=== PATIENT | male | born 1990 | race Caucasian/White ===

== ENCOUNTER 2018-04-09 15:30 | Outpatient (REF) | payer MEDICAID, SELFPAY ==
[2018-04-09 16:52] LABS: HCT 36.5 % (40.0-50.0); HGB 11.5 g/dL (13.5-17.5); Mean Corp. HGB Concentration 31.5 g/dL (32.0-36.0); Mean Corpuscular Hemoglobin 23.1 pg (27.0-33.0); Mean Corpuscular Volume 73.3 fL (80-95); Mean Platelet Volume 11.2 fL (8.0-11.0); Platelet Count 286 x1000/uL (130-400); RBC 4.98 m/cumm (4.50-6.00); RBC Distribution Width 16.4 % (11.8-14.1)
[2018-04-09 16:58] LABS: ALT 201 U/L (12-78); AST 79 U/L (15-37); Albumin 3.9 g/dL (3.4-5.0); Alkaline Phosphatase 167 U/L (46-116); Anion Gap 14.7 mmol/L (3-11); BUN 17 mg/dL (7-18); Bilirubin, Total 0.3 mg/dL (0.2-1.0); CO2 22.3 mmol/L (21.0-32.0); CREATININE 0.79 mg/dL (0.70-1.30); Chloride 107 mmol/L (98-107); Glucose 117 mg/dL (70-100); Potassium 4.1 mmol/L (3.5-5.1); Sodium 144 mmol/L (136-145); TSH (W/Ref FT4) 0.01 uIU/mL (0.358-3.74); Total Protein 7.2 g/dL (6.4-8.2)
[2018-04-09 17:29] LABS: FREE T4 1.14 ng/dL (0.76-1.46)
== END 2018-04-09 15:50 ==
LOC: NCHCN 15:30
PROVIDERS: PCP Family Medicine; Visit Provider Family Medicine
DX: D50.8 Other iron deficiency anemias (principal); E23.2 Diabetes insipidus
CPT/HCPCS: 80053; 85027; 84439; 84443

== ENCOUNTER 2018-04-21 12:30 | Outpatient (REF) | payer MEDICAID, SELFPAY ==
[2018-04-21 15:15] LABS: Sodium 151 mmol/L (136-145)
== END 2018-04-21 12:50 ==
LOC: NCHCN 12:30
PROVIDERS: PCP Family Medicine; Visit Provider Family Medicine
DX: E23.0 Hypopituitarism (principal)
CPT/HCPCS: 84295

== ENCOUNTER 2018-05-05 13:21 | Outpatient (REF) | payer MEDICAID, SELFPAY ==
[2018-05-05 14:30] LABS: Abs Immature Grans 0.01 k/cumm (0.0-0.09); Absolute Basophil Count 0.01 k/cumm (0.0-0.2); Absolute Eosinophil Count 0.15 k/cumm (0.0-0.7); Absolute Lymphocyte Count 1.43 k/cumm (1.2-3.4); Absolute Monocyte Count 0.52 k/cumm (0.11-0.7); Absolute Neutrophil Count 3.89 k/cumm (1.2-6.7); Basophils % 0.2; Eosinophils % 2.5; HCT 40.4 % (40.0-50.0); HGB 12.5 g/dL (13.5-17.5); Immature Grans % 0.2; Lymphocytes % 23.8; Mean Corp. HGB Concentration 30.9 g/dL (32.0-36.0); Mean Corpuscular Hemoglobin 22.9 pg (27.0-33.0); Mean Corpuscular Volume 74.1 fL (80-95); Monocytes % 8.7; Neutrophils % 64.6; RBC 5.45 m/cumm (4.50-6.00); RBC Distribution Width 18.7 % (11.8-14.1); White Blood Cell Count 6.01 k/cumm (4.4-10.8)
[2018-05-05 14:37] LABS: Sodium 148 mmol/L (136-145)
[2018-05-05 14:52] LABS: Anisocytosis 1+; Diff Comment RBC Morph Reviewed
[2018-05-05 14:53] LABS: Microcytosis 2+; Platelet Count 255 x1000/uL (130-400); Polychromasia Present
== END 2018-05-05 13:41 ==
LOC: LBN 13:21
PROVIDERS: PCP Family Medicine; Visit Provider Family Medicine
DX: E23.0 Hypopituitarism (principal)
CPT/HCPCS: 84295; 85025

== ENCOUNTER 2018-05-07 13:21 | Outpatient (CLI) | payer MEDICAID, SELFPAY ==
--- NOTE | 2018-05-07 13:39 | DI.RAD_ITS ---
SYMPTOMS/DIAGNOSIS: LT KNEE PAIN, M2.562 LEFT KNEE: There is no evidence of a fracture or dislocation. No bony or joint abnormality is seen.
== END 2018-05-07 13:41 ==
PROVIDERS: PCP Family Medicine; Visit Provider Specialist/Technologist Athletic Trainer
DX: M25.562 Pain in left knee (principal)
CPT/HCPCS: 73562

== ENCOUNTER 2018-05-08 15:50 | Emergency (ER) | payer MEDICAID, SELFPAY ==
[2018-05-08 15:58] VITALS: BP 123/89; PULSE 108; RESP 16; TEMP 36; O2SAT 97
--- NOTE | 2018-05-08 17:21 | DI.RAD_ITS ---
SYMPTOM/DIAGNOSIS: COUGH AP AND LATERAL CHEST: No priors. The heart is normal in size. The lungs are clear. The mediastinal structures and pleura appear intact. CONCLUSION: Normal chest.
--- NOTE | 2018-05-08 17:21 | W.ED.GENAD ---
Discharge Plan Disposition Patient Disposition: HOME Discharge Details Chief Complaint: SOB Clinical Impression: Cough Primary Care Provider: Lc Venegas ED Provider: Tony Macias Home Meds and New Rx's Prescriptions: Continue trazodone 50 MG tablet 2 tab PO QPM RF: 0 quetiapine 200 MG tablet 1 mg PO QPM RF: 0 omeprazole 40 MG capsule,delayed release(DR/EC) 1 cap PO DAILY RF: 0 zonisamide 100 MG capsule 1 cap PO QPM RF: 0 levothyroxine [Synthroid] 150 MCG tablet 1 tab PO DAILY RF: 0 melatonin-pyridoxine (vit B6) 1 EACH tablet 3 mg PO QPM RF: 0 hydrocortisone [Cortef] 10 MG tablet 20 mg PO TID RF: 0 desmopressin 0.1 MG tablet 0.5 tab PO TID RF: 0 testosterone [AndroGel] 75 GM gel in metered-dose pump 3 applic Topical DAILY RF: 0 atorvastatin 40 mg Tablet 40 mg PO DAILY RF: 0 aspirin [Aspir-81] 81 mg Tablet,Delayed Release (Dr/Ec) 1 tab PO DAILY RF: 0 metoprolol tartrate 75 mg Tablet 1 tab PO DAILY RF: 0 Discharge Instructions Instructions: Acute Cough (ED) Additional Instructions: Please contact your primary care physician to arrange follow-up. Return to the ER for any worsening or new concerning symptoms. Discharge Data Discharge Date/Time-TO BE ENTERED AT DEPARTURE: 05/08/18 18:48 Medical Decision Making 27-year-old male with history of TBI, seizure disorder, s/p craniotimy with cough. Well appearing. Saturating well and in no respiratory distress. cxr interpreted by radiology no acute findings. Suspect viral URI. Supportive care advised. Recommended outpatient follow-up. Patient caregivers were encouraged to return for worsening or new concerning symptoms. HPI General Mode of arrival: wheelchair. Date/Time Provider Initiated Documentation: 05/08/18 16:25. Limitations to Documentation: altered mental status. HPI Narrative: 27-year-old male with history of TBI, CVA, seizure disorder, status post craniotomy for tumor resection, here with caregivers who are concerned that he has had a cough recently. Caregivers noted cough for the past couple days.?Also concerned he may have had some wheeze earlier today. No associated fever. History and review of systems limited secondary to altered mental status. Related Data Home Medications Medication Instructions Recorded Confirmed desmopressin 0.5 tab PO TID 12/29/15 05/08/18 hydrocortisone [Cortef] 20 mg PO TID 12/29/15 05/08/18 levothyroxine [Synthroid] 1 tab PO DAILY 12/29/15 05/08/18 melatonin-pyridoxine (vit B6) 3 mg PO QPM 12/29/15 05/08/18 omeprazole 1 cap PO DAILY 12/29/15 05/08/18 quetiapine 1 mg PO QPM 12/29/15 05/08/18 testosterone [AndroGel] 3 applic TOPICAL DAILY 12/29/15 05/08/18 trazodone 2 tab PO QPM 12/29/15 05/08/18 zonisamide 1 cap PO QPM 12/29/15 05/08/18 aspirin [Aspir-81] 1 tab PO DAILY 05/08/18 05/08/18 atorvastatin 40 mg PO DAILY 05/08/18 05/08/18 metoprolol tartrate 1 tab PO DAILY 05/08/18 05/08/18 Allergies Allergy/AdvReac Type Severity Reaction Status Date / Time gemfibrozil [From Lopid] AdvReac Unknown Unverified 05/08/18 16:04 General Stated Complaint: SOB KWASI: 3 Review of Systems Review of Systems Unobtainable due to mental status [facility] Social History Smoking/Tobacco Use Status: Never Exam Const General: no acute distress [facility] Head: atraumatic Mouth: moist mucous membranes Eyes Conjunctivae: normal conjunctivae Sclera: normal sclerae Neck Neck: trachea midline and supple Resp Auscultation: clear to auscultation bilaterally, no rales, no rhonchi and no wheezes Cardio Jugular venous pressure: no JVD Rate: tachycardic Rhythm: regular rhythm GI Palpation: soft, not firm, no guarding, no masses, not rigid and nontender Skin General skin exam: no rashes or lesions noted Neuro General: alert, awake and tone normal Extrem General: no edema Course Vital Signs Temperature 36 C L 05/08/18 15:58 Pulse 108 H 05/08/18 15:58 Respiratory Rate 16 05/08/18 15:58 Blood Pressure 123/89 05/08/18 15:58 Pulse Oximetry 97 05/08/18 15:58 Temperature 36 C L 05/08/18 15:58 Temperature Source Skin 05/08/18 15:58 Pulse 108 H 05/08/18 15:58 Respiratory Rate 16 05/08/18 15:58 Respiratory Effort 05/08/18 16:27 Respiratory Depth Normal 05/08/18 16:27 Blood Pressure 123/89 05/08/18 15:58 Pulse Oximetry 97 05/08/18 15:58 Pain Level 0 05/08/18 15:58 Comment 05/08/18 15:58
--- NOTE | 2018-05-08 18:37 | DI.VRAD_ITS ---
EXAM: XR Chest, 2 Views EXAM DATE/TIME: 05/08/2018 5:22 PM CLINICAL HISTORY: 27 years old, male; Signs and symptoms; Cough TECHNIQUE: XR of the chest, 2 views. COMPARISON: No relevant prior studies available. FINDINGS: Lungs: Unremarkable. No consolidation. Pleural space: Unremarkable. No pleural effusion. No pneumothorax. Heart/Mediastinum: Unremarkable. No cardiomegaly. Bones/joints: Unremarkable. IMPRESSION: No acute findings. Dictated and Authenticated by: Marino Lepe MD. Ordering:CHANO GRAF MD
[2018-05-08 18:43] VITALS: BP 120/75; PULSE 104; RESP 18; TEMP 36.6; O2SAT 97
--- NOTE | 2018-05-08 18:48 | ED.GENADUL_ITS ---
Discharge Plan Disposition Patient Disposition: HOME Discharge Details Chief Complaint: SOB Clinical Impression: Cough Primary Care Provider: Lc Venegas ED Provider: Tony Macias Home Meds and New Rx's Prescriptions: Continue trazodone 50 MG tablet 2 tab PO QPM RF: 0 quetiapine 200 MG tablet 1 mg PO QPM RF: 0 omeprazole 40 MG capsule,delayed release(DR/EC) 1 cap PO DAILY RF: 0 zonisamide 100 MG capsule 1 cap PO QPM RF: 0 levothyroxine [Synthroid] 150 MCG tablet 1 tab PO DAILY RF: 0 melatonin-pyridoxine (vit B6) 1 EACH tablet 3 mg PO QPM RF: 0 hydrocortisone [Cortef] 10 MG tablet 20 mg PO TID RF: 0 desmopressin 0.1 MG tablet 0.5 tab PO TID RF: 0 testosterone [AndroGel] 75 GM gel in metered-dose pump 3 applic Topical DAILY RF: 0 atorvastatin 40 mg Tablet 40 mg PO DAILY RF: 0 aspirin [Aspir-81] 81 mg Tablet,Delayed Release (Dr/Ec) 1 tab PO DAILY RF: 0 metoprolol tartrate 75 mg Tablet 1 tab PO DAILY RF: 0 Discharge Instructions Instructions: Acute Cough (ED) Additional Instructions: Please contact your primary care physician to arrange follow-up. Return to the ER for any worsening or new concerning symptoms. Discharge Data Discharge Date/Time-TO BE ENTERED AT DEPARTURE: 05/08/18 18:48 Medical Decision Making 27-year-old male with history of TBI, seizure disorder, s/p craniotimy with cough. Well appearing. Saturating well and in no respiratory distress. cxr interpreted by radiology no acute findings. Suspect viral URI. Supportive care advised. Recommended outpatient follow-up. Patient caregivers were encouraged to return for worsening or new concerning symptoms. HPI General Mode of arrival: wheelchair . Date/Time Provider Initiated Documentation: 05/08/18 16:25 . Limitations to Documentation: altered mental status . HPI Narrative: 27-year-old male with history of TBI, CVA, seizure disorder, status post craniotomy for tumor resection, here with caregivers who are concerned that he has had a cough recently. Caregivers noted cough for the past couple days.?Also concerned he may have had some wheeze earlier today. No associated fever. History and review of systems limited secondary to altered mental status. Related Data Home Medications Medication Instructions Recorded Confirmed desmopressin 0.5 tab PO TID 12/29/15 05/08/18 hydrocortisone [Cortef] 20 mg PO TID 12/29/15 05/08/18 levothyroxine [Synthroid] 1 tab PO DAILY 12/29/15 05/08/18 melatonin-pyridoxine (vit B6) 3 mg PO QPM 12/29/15 05/08/18 omeprazole 1 cap PO DAILY 12/29/15 05/08/18 quetiapine 1 mg PO QPM 12/29/15 05/08/18 testosterone [AndroGel] 3 applic TOPICAL DAILY 12/29/15 05/08/18 trazodone 2 tab PO QPM 12/29/15 05/08/18 zonisamide 1 cap PO QPM 12/29/15 05/08/18 aspirin [Aspir-81] 1 tab PO DAILY 05/08/18 05/08/18 atorvastatin 40 mg PO DAILY 05/08/18 05/08/18 metoprolol tartrate 1 tab PO DAILY 05/08/18 05/08/18 Allergies Allergy/AdvReac Type Severity Reaction Status Date / Time gemfibrozil [From Lopid] AdvReac Unknown Unverified 05/08/18 16:04 General Stated Complaint: SOB KWASI: 3 Review of Systems Review of Systems Unobtainable due to mental status [facility] Social History Smoking/Tobacco Use Status: Never Exam Const General: no acute distress [facility] Head: atraumatic Mouth: moist mucous membranes Eyes Conjunctivae: normal conjunctivae Sclera: normal sclerae Neck Neck: trachea midline and supple Resp Auscultation: clear to auscultation bilaterally, no rales, no rhonchi and no wheezes Cardio Jugular venous pressure: no JVD Rate: tachycardic Rhythm: regular rhythm GI Palpation: soft, not firm, no guarding, no masses, not rigid and nontender Skin General skin exam: no rashes or lesions noted Neuro General: alert, awake and tone normal Extrem General: no edema Course Vital Signs Temperature 36 C L 05/08/18 15:58 Pulse 108 H 05/08/18 15:58 Respiratory Rate 16 05/08/18 15:58 Blood Pressure 123/89 05/08/18 15:58 Pulse Oximetry 97 05/08/18 15:58 Temperature 36 C L 05/08/18 15:58 Temperature Source Skin 05/08/18 15:58 Pulse 108 H 05/08/18 15:58 Respiratory Rate 16 05/08/18 15:58 Respiratory Effort 05/08/18 16:27 Respiratory Depth Normal 05/08/18 16:27 Blood Pressure 123/89 05/08/18 15:58 Pulse Oximetry 97 05/08/18 15:58 Pain Level 0 05/08/18 15:58 Comment 05/08/18 15:58
== END 2018-05-08 18:48 | disposition home or self-care (01) ==
PROVIDERS: Emergency Provider Student in an Organized Health Care Education/Training Program; PCP Specialist/Technologist Athletic Trainer
DX: R05 Cough (principal)
CPT/HCPCS: 99283; 71046; 99282

== ENCOUNTER 2018-05-20 10:09 | Outpatient (REF) | payer MEDICAID, SELFPAY ==
[2018-05-20 10:41] LABS: Sodium 146 mmol/L (136-145)
== END 2018-05-20 10:29 ==
LOC: NCHCN 10:09
PROVIDERS: PCP Specialist/Technologist Athletic Trainer; Visit Provider Family Medicine
DX: E23.0 Hypopituitarism (principal)
CPT/HCPCS: 84295

== ENCOUNTER 2018-06-02 16:10 | Outpatient (REF) | payer MEDICAID, SELFPAY ==
[2018-06-02 17:17] LABS: Abs Immature Grans 0.02 k/cumm (0.0-0.09); Absolute Basophil Count 0.02 k/cumm (0.0-0.2); Absolute Eosinophil Count 0.18 k/cumm (0.0-0.7); Absolute Lymphocyte Count 1.55 k/cumm (1.2-3.4); Absolute Monocyte Count 0.44 k/cumm (0.11-0.7); Absolute Neutrophil Count 3.63 k/cumm (1.2-6.7); Basophils % 0.3; Eosinophils % 3.1; HCT 40.8 % (40.0-50.0); HGB 12.8 g/dL (13.5-17.5); Immature Grans % 0.3; Lymphocytes % 26.5; Mean Corp. HGB Concentration 31.4 g/dL (32.0-36.0); Mean Corpuscular Hemoglobin 23.5 pg (27.0-33.0); Mean Corpuscular Volume 74.9 fL (80-95); Mean Platelet Volume 10.8 fL (8.0-11.0); Monocytes % 7.5; Neutrophils % 62.3; Platelet Count 258 x1000/uL (130-400); RBC 5.45 m/cumm (4.50-6.00); RBC Distribution Width 18.9 % (11.8-14.1); White Blood Cell Count 5.84 k/cumm (4.4-10.8)
[2018-06-02 17:19] LABS: Sodium 144 mmol/L (136-145)
== END 2018-06-02 16:30 ==
LOC: LBN 16:10
PROVIDERS: PCP Specialist/Technologist Athletic Trainer; Visit Provider Family Medicine
DX: E23.0 Hypopituitarism (principal); E23.2 Diabetes insipidus; E03.9 Hypothyroidism, unspecified
CPT/HCPCS: 84295; 85025

== ENCOUNTER 2018-06-15 16:06 | Outpatient (CLI) | payer MEDICAID, SELFPAY ==
--- NOTE | 2018-06-15 16:44 | DI.RAD_ITS ---
SYMPTOM/DIAGNOSIS: COUGH, R05 PA AND LATERAL CHEST: Comparison is made with 08 May 2018. The lungs are again not well inflated on either view. The exam was somewhat limited by the patient's body habitus. The heart size is normal. The lungs are grossly clear. IMPRESSION: Limited exam. No acute abnormality.
--- NOTE | 2018-06-15 17:06 | DI.VRAD_ITS ---
EXAM: XR Chest, 2 Views EXAM DATE/TIME: 06/15/2018 4:27 PM CLINICAL HISTORY: 28 years old, male; Signs and symptoms; Cough; Additional info: PT is mentally disabled and unable to take a deep breath TECHNIQUE: XR of the chest, 2 views. COMPARISON: CR XR CHEST 2V PA LATERAL 05/08/2018 6:05 PM FINDINGS: Lungs: Unremarkable. No consolidation. Pleural space: Unremarkable. No pleural effusion. No pneumothorax. Heart/Mediastinum: Unremarkable. No cardiomegaly. Bones/joints: Unremarkable. IMPRESSION: No acute findings. Dictated and Authenticated by: Neymar Ayers MD. Ordering:KATHIE TELLEZ MD
== END 2018-06-15 16:26 ==
PROVIDERS: PCP Specialist/Technologist Athletic Trainer; Visit Provider Specialist/Technologist Athletic Trainer
DX: R05 Cough (principal)
CPT/HCPCS: 71046

== ENCOUNTER 2018-06-15 16:16 | Outpatient (REF) | payer MEDICAID, SELFPAY ==
[2018-06-15 18:40] LABS: Sodium 143 mmol/L (136-145)
== END 2018-06-15 16:36 ==
LOC: NCHCN 16:16
PROVIDERS: PCP Specialist/Technologist Athletic Trainer; Visit Provider Specialist/Technologist Athletic Trainer
DX: E23.0 Hypopituitarism (principal); E23.2 Diabetes insipidus
CPT/HCPCS: 84295

== ENCOUNTER 2018-07-02 11:38 | Outpatient (REF) | payer MEDICAID, SELFPAY ==
[2018-07-02 12:46] LABS: Abs Immature Grans 0.03 k/cumm (0.0-0.09); Absolute Basophil Count 0.01 k/cumm (0.0-0.2); Absolute Eosinophil Count 0.19 k/cumm (0.0-0.7); Absolute Lymphocyte Count 1.43 k/cumm (1.2-3.4); Absolute Monocyte Count 0.51 k/cumm (0.11-0.7); Absolute Neutrophil Count 3.69 k/cumm (1.2-6.7); Basophils % 0.2; Eosinophils % 3.2; HGB 13.4 g/dL (13.5-17.5); Immature Grans % 0.5; Lymphocytes % 24.4; Mean Corp. HGB Concentration 31.2 g/dL (32.0-36.0); Mean Corpuscular Hemoglobin 23.5 pg (27.0-33.0); Mean Corpuscular Volume 75.3 fL (80-95); Mean Platelet Volume 10.5 fL (8.0-11.0); Monocytes % 8.7; Platelet Count 225 x1000/uL (130-400); RBC 5.71 m/cumm (4.50-6.00); RBC Distribution Width 19.3 % (11.8-14.1); White Blood Cell Count 5.86 k/cumm (4.4-10.8)
[2018-07-02 12:47] LABS: Sodium 143 mmol/L (136-145)
== END 2018-07-02 11:58 ==
LOC: NCHCN 11:38
PROVIDERS: PCP Specialist/Technologist Athletic Trainer; Visit Provider Family Medicine
DX: E23.0 Hypopituitarism (principal); E23.2 Diabetes insipidus; G40.89 Other seizures
CPT/HCPCS: 84295; 85025

== ENCOUNTER 2018-07-16 10:09 | Outpatient (REF) | payer MEDICAID, SELFPAY ==
[2018-07-16 11:05] LABS: Sodium 139 mmol/L (136-145)
== END 2018-07-16 10:29 ==
LOC: NCHCN 10:09
PROVIDERS: PCP Specialist/Technologist Athletic Trainer; Visit Provider Family Medicine
DX: E23.0 Hypopituitarism (principal); E23.2 Diabetes insipidus; E03.9 Hypothyroidism, unspecified
CPT/HCPCS: 84295

== ENCOUNTER 2018-09-04 10:23 | Outpatient (REF) | payer MEDICAID, SELFPAY ==
[2018-09-04 12:47] LABS: HCT 47.8 % (40.0-50.0); HGB 15.4 g/dL (13.5-17.5); Mean Corp. HGB Concentration 32.2 g/dL (32.0-36.0); Mean Corpuscular Hemoglobin 24.4 pg (27.0-33.0); Mean Corpuscular Volume 75.8 fL (80-95); Platelet Count 250 x1000/uL (130-400); RBC 6.31 m/cumm (4.50-6.00); RBC Distribution Width 17.7 % (11.8-14.1); White Blood Cell Count 7.14 k/cumm (4.4-10.8)
[2018-09-04 12:51] LABS: Sodium 149 mmol/L (136-145)
== END 2018-09-04 10:43 ==
LOC: NCHCN 10:23
PROVIDERS: PCP Specialist/Technologist Athletic Trainer; Visit Provider Specialist/Technologist Athletic Trainer
DX: E23.2 Diabetes insipidus (principal); E23.0 Hypopituitarism; I69.352 Hemiplegia and hemiparesis following cerebral infarction affecting left dominant side; G40.89 Other seizures
CPT/HCPCS: 85027; 84295

== ENCOUNTER 2018-09-09 12:02 | Observation (INO) | payer MEDICAID, SELFPAY ==
[2018-09-09] VITALS (40 sets, daily range): BP systolic 103–129; BP diastolic 55–90; PULSE 86–125; RESP 15–34; TEMP 37.1–39; O2SAT 89–100
--- NOTE | 2018-09-09 12:14 | W.ED.GENAD ---
Discharge Plan Disposition Condition: Improving Discharge Details Chief Complaint: GenMedical Reason For Visit: FEVER, HYPOPITUITARISM, AMS Admit Date/Time: 09/09/18 16:24 Admit Provider: Ila Rosenthal Attending Provider: Ila Rosenthal Primary Care Provider: Lc Venegas ED Provider: Kaylin Macias Discharge Instructions Activity:: Activity as Tolerated Equipment/Supplies:: No Equipment Needed Diet:: Supervised meals. Discharge Orders Discharge Orders: Discharge Order (Routine); Ordered 09/11/18 Ordered By: Jessika Slade Discharge Data Discharge Date/Time-TO BE ENTERED AT DEPARTURE: 09/09/18 17:57 Medical Decision Making Miguel Angel Burgos is a 28 y/o man with history of hypopituitarism, CVA, seizure disorder who presented to the emergency department with decreased urination, blue lips this morning, and mild behavioral change from baseline. Pt reports that his legs hurt and he denies any other pain. Patient refusing to cooperate with triage, refusing to let staff obtain vital signs. Patient was sedated on an emergent basis with 2.5 mg of IM Versed to allow vital signs to be obtained and IV to be placed/labs drawn. On exam patient is nontoxic-appearing. He is grossly nonfocal. His lungs are clear. His abdominal exam is benign. There is no skin wound or rash. He is tachycardic and febrile. Concern for infection of unknown etiology, possible metabolic/lyte derangement. Doubt acute abdominal process, doubt meningitis as patient with no meningismus and caregivers report that patient's behavior is very typical for him whenever he is sick. Exam/history is not consistent with ACS, PE. Plan for EKG, chest x-ray, screening labs, IV placement, telemetry, will hold IV fluids at this time pending lab results. I did speak with the patient's sister who is his guardian, who states that Dr. Zaidi at [facility] is patient's online affiliate marketing manager, and she requests that we consult him. I spoke with Dr. Zaidi and reviewed patient presentation. He reports that he knows the patient well, but that he is not his current online affiliate marketing manager and Pt is now being followed by [facility]. He recommends 100 mg hydrocortisone dosing at this time. Patient received additional 0.5 mg of Ativan prior to straight cath for urinalysis. UA negative. Chest x-ray visualized and interpreted by me in conjunction with radiology: poor film, but shows no infiltrate. Unclear infectious source at this time. Plan for vancomycin, cefepime. Call placed to endocrinology at [facility] for further recommendations. EKG interpreted by me: Shows ST at 117, nl axis, no acute ischemic changes Call back from [facility] at 1410, spoke with Dr. Mariola Thomson and discussed Pt presentation, lab and imaging results. She recommends patient receive fluids as necessary, with no preference between normal saline and lactated Ringers. She recommends patient be admitted for further workup and receive triple his home hydrocortisone dosing. She does not have admitting privileges and recommends calling hospital medicine for admission at [facility]. Call placed to transfer center at 1420. Awaiting callback. Call back received from [facility] medicine Dr. Patton at 1535. I discussed patient presentation and results with Dr. Patton, who knows the patient well from his prolonged recent stay at [facility]. He states that there is no bed availability at [facility] for this patient at this time, and recommends that he be admitted here at [facility], with endocrinology consultation by phone. Discussed patient with Dr. Rosenthal, our hospitalist, who was amenable to accepting patient for admission. We discussed ICU versus MedSurg bed placement given patient with intermittent behavioral issues, Dr. Johnson would like to admit to med [facility] for now as caregivers will be present 24 hours/day to assist if behavioral issues arise. Clinical impression: Fever Disposition: [facility] H inpatient Medical Records Medical records reviewed: Yes I reviewed the patient's medical records. HPI General Mode of arrival: wheelchair. Date/Time Provider Initiated Documentation: 09/09/18 12:12. Limitations to Documentation: no limitations. Information obtained by: patient. HPI Narrative: Miguel Angel Burgos is a 28-year-old man with a history of panhypo-pituitarism, CVAs, seizure disorder presenting to the emergency department with decreased urination and mild increase in agitation. Patient is accompanied by his care providers who provide history. They report that patient typically has very regular urination, although for the past 5 days he has been decreased from usual. His caregivers also report that he has mild agitation at baseline that increases when he is sick, and he has seemed slightly more agitated than usual today. They also noticed that his lips seem blue this morning. They called [facility] endocrinology who follows him, who instructed them to bring him to the emergency department. They report that patient is basically at his mental status baseline though somewhat less cooperative than usual. They deny patient having pain, fevers, diarrhea, shortness of breath, or cough recently. No recent illness. He reports that he does have significant cramping in both of his legs that is chronic and unchanged for which he takes cyclobenzaprine. He is nonambulatory at baseline. He is on DDAVP, hydrocortisone, and levothyroxine for his panhypopituitarism. He was admitted at [facility] for his metabolic derangements from July 2017 to March 2018. Caregiver state that patient sister is his guardian. I was called just prior to patient arrival by Dr. Mariola Thomson of endocrinology at [facility], who notified me that patient will be arriving and of his history of medical problems. Related Data Home Medications Medication Instructions Recorded Confirmed desmopressin 0.5 tab PO TID 12/29/15 09/09/18 hydrocortisone [Cortef] 20 mg PO TID 12/29/15 09/09/18 omeprazole 1 cap PO DAILY 12/29/15 09/09/18 testosterone [AndroGel] 3 applic TOPICAL DAILY 12/29/15 09/09/18 trazodone 2 tab PO QPM 12/29/15 09/09/18 zonisamide 1 cap PO QPM 12/29/15 09/09/18 aspirin [Aspir-81] 1 tab PO DAILY 05/08/18 09/09/18 atorvastatin 40 mg PO DAILY 05/08/18 09/09/18 metoprolol tartrate 1 tab PO DAILY 05/08/18 09/09/18 cholecalciferol (vitamin D3) 1,000 mg PO DAILY 09/09/18 09/09/18 [Vitamin D3] cyclobenzaprine 10 mg PO TID 09/09/18 09/09/18 desmopressin 0.1 mg PO BID 09/09/18 09/09/18 ferrous gluconate 324 mg PO DAILY 09/09/18 09/09/18 levothyroxine 200 mcg PO DAILY 09/09/18 09/09/18 quetiapine [Seroquel] 200 mg PO PRN PRN 09/09/18 09/09/18 sennosides-docusate sodium [DOK 1 tab PO QHS PRN 09/09/18 09/09/18 Plus] amoxicillin-pot clavulanate 1 tab PO BID #8 tab 09/11/18 [Augmentin] doxycycline hyclate 100 mg PO BID #8 tab 09/11/18 hydrocortisone 10 mg PO BID #10 tab 09/11/18 Previous Rx's Medication Instructions Recorded amoxicillin-pot clavulanate 1 tab PO BID #8 tab 09/11/18 [Augmentin] doxycycline hyclate 100 mg PO BID #8 tab 09/11/18 hydrocortisone 10 mg PO BID #10 tab 09/11/18 Allergies Allergy/AdvReac Type Severity Reaction Status Date / Time gemfibrozil [From Lopid] AdvReac Unknown Unverified 09/09/18 13:38 General KWASI: 3 Review of Systems Review of Systems Constitutional: denies fevers Eyes: denies eye pain ENT: denies facial pain, dental pain, sore throat Cardiovascular: denies chest pain Respiratory: denies SOB, cough GI: denies abdominal pain, vomiting, diarrhea : denies flank pain, report decreased urinaration MSK: denies back pain, neck pain, arthralgias, reports chronic lower leg myalgias that are unchanged from baseline Skin: denies rash Neuro: denies headaches, numbness, weakness Review of systems provided by caregivers [facility] Medical History Urinary retention (Acute) Hx of fracture of pelvis (Acute) 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) Constipation (Acute) Leg cramps (Acute) Insomnia (Acute) GERD (gastroesophageal reflux disease) (Chronic) Seizures (Acute) CVA (cerebral vascular accident) (Chronic) TBI (traumatic brain injury) (Acute) History of brain tumor (Acute) Social History Smoking/Tobacco Use Status: Never Drug use: Never Do you feel safe in your relationship?: Yes Exam Narrative Exam Narrative: Constitutional: Acutely [id number], occasionally uses 1 word or short sentence responses but minimally verbal which is at baseline per caregivers HENT: head atraumatic/normocephalic/normal inspection, mucous membranes moist Eyes: conjunctiva normal, sclera normal, pupils 3mm b/l Neck: no stridor, normal ROM, trachea midline Chest: normal inspection Resp: normal work of breathing, LCTAB Cardio: Tachycardic rate, normal rhythm, no murmur appreciated GI: abdomen soft, non-tender, non-distended Back: normal inspection, no rash Skin: warm, dry, normal color, no rash Neuro: Alert, responds to caregivers with 1 word or short sentence answers which is at his baseline, for example responds no when asked if it is okay if we take his blood pressure. Moving all extremities. Less cooperative with participating in medical care as usual per caregivers but otherwise at his neurologic baseline Ext: no edema, no rash
[2018-09-09] MEDS: Midazolam 2 MG/2 ML VIAL 2.5 MG IM (12:22)
--- NOTE | 2018-09-09 12:32 | DI.RAD_ITS ---
SYMPTOMS/DIAGNOSIS: FEVER PORTABLE FRONTAL CHEST: Comparison 06/15/18. The study is limited due to poor inspiration and patient body habitus. The cardiac silhouette is within normal limits according to protocol. No definite focal consolidating infiltrates, effusions or pneumothoraces are identified. The bones appear intact. IMPRESSION: 1. Limited examination due to suboptimal lung volumes. 2. No acute pulmonary process.
[2018-09-09 12:40] LABS: Lactate-non-spesis 1.5 mmol/l (0.6-1.4)
[2018-09-09 12:41] LABS: Abs Immature Grans 0.01 k/cumm (0.0-0.09); Absolute Basophil Count 0.01 k/cumm (0.0-0.2); Absolute Eosinophil Count 0.09 k/cumm (0.0-0.7); Absolute Lymphocyte Count 1.01 k/cumm (1.2-3.4); Absolute Monocyte Count 0.75 k/cumm (0.11-0.7); Basophils % 0.2; Eosinophils % 1.4; HCT 41.9 % (40.0-50.0); HGB 13.6 g/dL (13.5-17.5); Immature Grans % 0.2; Lymphocytes % 15.9; Mean Corp. HGB Concentration 32.5 g/dL (32.0-36.0); Mean Corpuscular Hemoglobin 24.3 pg (27.0-33.0); Mean Platelet Volume 9.5 fL (8.0-11.0); Monocytes % 11.8; Neutrophils % 70.5; Platelet Count 205 x1000/uL (130-400); RBC 5.59 m/cumm (4.50-6.00); RBC Distribution Width 16.9 % (11.8-14.1); White Blood Cell Count 6.37 k/cumm (4.4-10.8)
--- NOTE | 2018-09-09 12:45 | NUR.NOTE ---
pt was brought in by care takers because of fever and increased lethargy and agitation
[2018-09-09] MEDS: LORazepam 2 MG/ML VIAL 0.5 MG IVP (13:01)
[2018-09-09 13:07] LABS: ALT 82 U/L (12-78); AST 30 U/L (15-37); Albumin 3.7 g/dL (3.4-5.0); Alkaline Phosphatase 173 U/L (46-116); BUN 18 mg/dL (7-18); Bilirubin, Total 0.6 mg/dL (0.2-1.0); CREATININE 1.08 mg/dL (0.70-1.30); Calcium 8.5 mg/dL (8.5-10.1); Chloride 101 mmol/L (98-107); Glucose 96 mg/dL (70-100); Potassium 3.7 mmol/L (3.5-5.1); Sodium 138 mmol/L (136-145); Total Protein 7.4 g/dL (6.4-8.2)
[2018-09-09 13:08] LABS: TSH (W/Ref FT4) < 0.01 uIU/mL (0.358-3.74)
[2018-09-09 13:21] LABS: Bilirubin Negative (Negative); Blood Negative (Negative); Clarity Clear; Glucose Negative (Negative); Ketones Negative (Negative); Leukocyte Esterase Negative (Negative); Nitrite Negative (Negative); Specific Gravity 1.025 (1.005-1.025)
[2018-09-09] MEDS: Acetaminophen 650 MG SUPP PR (13:23)
[2018-09-09] MEDS: Hydrocortisone SOD SUC. 100 MG VIAL IVP (13:23)
[2018-09-09 13:26] LABS: FREE T4 0.93 ng/dL (0.76-1.46)
--- NOTE | 2018-09-09 13:33 | ED.GENADUL_ITS ---
Discharge Plan Disposition Condition: Improving Discharge Details Chief Complaint: GenMedical Reason For Visit: FEVER, HYPOPITUITARISM, AMS Admit Date/Time: 09/09/18 16:24 Admit Provider: Ila Rosenthal Attending Provider: Ila Rosenthal Primary Care Provider: Lc Venegas ED Provider: Kaylin Macias Discharge Instructions Activity:: Activity as Tolerated Equipment/Supplies:: No Equipment Needed Diet:: Supervised meals. Discharge Orders Discharge Orders: Discharge Order (Routine); Ordered 09/11/18 Ordered By: Jessika Slade Discharge Data Discharge Date/Time-TO BE ENTERED AT DEPARTURE: 09/09/18 17:57 Medical Decision Making Miguel Angel Burgos is a 28 y/o man with history of hypopituitarism, CVA, seizure disorder who presented to the emergency department with decreased urination, blue lips this morning, and mild behavioral change from baseline. Pt reports that his legs hurt and he denies any other pain. Patient refusing to cooperate with triage, refusing to let staff obtain vital signs. Patient was sedated on an emergent basis with 2.5 mg of IM Versed to allow vital signs to be obtained and IV to be placed/labs drawn. On exam patient is nontoxic-appearing. He is grossly nonfocal. His lungs are clear. His abdominal exam is benign. There is no skin wound or rash. He is tachycardic and febrile. Concern for infection of unknown etiology, possible metabolic/lyte derangement. Doubt acute abdominal process, doubt meningitis as patient with no meningismus and caregivers report that patient's behavior is very typical for him whenever he is sick. Exam/history is not consistent with ACS, PE. Plan for EKG, chest x-ray, screening labs, IV placement, telemetry, will hold IV fluids at this time pending lab results. I did speak with the patient's sister who is his guardian, who states that Dr. Zaidi at [facility] is patient's clinical analyst, and she requests that we consult him. I spoke with Dr. Zaidi and reviewed patient presentation. He reports that he knows the patient well, but that he is not his current clinical analyst and Pt is now being followed by [facility]. He recommends 100 mg hydrocortisone dosing at this time. Patient received additional 0.5 mg of Ativan prior to straight cath for urinalysis. UA negative. Chest x-ray visualized and interpreted by me in conjunction with radiology: poor film, but shows no infiltrate. Unclear infectious source at this time. Plan for vancomycin, cefepime. Call placed to endocrinology at [facility] for further recommendations. EKG interpreted by me: Shows ST at 117, nl axis, no acute ischemic changes Call back from [facility] at 1410, spoke with Dr. Mariola Thomson and discussed Pt presentation, lab and imaging results. She recommends patient receive fluids as necessary, with no preference between normal saline and lactated Ringers. She recommends patient be admitted for further workup and receive triple his home hydrocortisone dosing. She does not have admitting privileges and recommends calling hospital medicine for admission at [facility]. Call placed to transfer center at 1420. Awaiting callback. Call back received from [facility] medicine Dr. Patton at 1535. I discussed patient presentation and results with Dr. Patton, who knows the patient well from his prolonged recent stay at [facility]. He states that there is no bed availability at [facility] for this patient at this time, and recommends that he be admitted here at [facility], with endocrinology consultation by phone. Discussed patient with Dr. Rosenthal, our hospitalist, who was amenable to accepting patient for admission. We discussed ICU versus MedSurg bed placement given patient with intermittent behavioral issues, Dr. Johnson would like to admit to [facility] for now as caregivers will be present 24 hours/day to assist if behavioral issues arise. Clinical impression: Fever Disposition: [facility] inpatient Medical Records Medical records reviewed: Yes I reviewed the patient's medical records. HPI General Mode of arrival: wheelchair . Date/Time Provider Initiated Documentation: 09/09/18 12:12 . Limitations to Documentation: no limitations . Information obtained by: patient . HPI Narrative: Miguel Angel Burgos is a 28-year-old man with a history of panhypo-pituitarism, CVAs, seizure disorder presenting to the emergency department with decreased urination and mild increase in agitation. Patient is accompanied by his care providers who provide history. They report that patient typically has very regular urination, although for the past 5 days he has been decreased from usual. His caregivers also report that he has mild agitation at baseline that increases when he is sick, and he has seemed slightly more agitated than usual today. They also noticed that his lips seem blue this morning. They called [facility] endocrinology who follows him, who instructed them to bring him to the emergency department. They report that patient is basically at his mental status baseline though somewhat less cooperative than usual. They deny patient having pain, fevers, diarrhea, shortness of breath, or cough recently. No recent illness. He reports that he does have significant cramping in both of his legs that is chronic and unchanged for which he takes cyclobenzaprine. He is nonambulatory at baseline. He is on DDAVP, hydrocortisone, and levothyroxine for his panhypopituitarism. He was admitted at [facility] for his metabolic derangements from July 2017 to March 2018. Caregiver state that patient sister is his guardian. I was called just prior to patient arrival by Dr. Mariola Thomson of endocrinology at [facility], who notified me that patient will be arriving and of his history of medical problems. Related Data Home Medications Medication Instructions Recorded Confirmed desmopressin 0.5 tab PO TID 12/29/15 09/09/18 hydrocortisone [Cortef] 20 mg PO TID 12/29/15 09/09/18 omeprazole 1 cap PO DAILY 12/29/15 09/09/18 testosterone [AndroGel] 3 applic TOPICAL DAILY 12/29/15 09/09/18 trazodone 2 tab PO QPM 12/29/15 09/09/18 zonisamide 1 cap PO QPM 12/29/15 09/09/18 aspirin [Aspir-81] 1 tab PO DAILY 05/08/18 09/09/18 atorvastatin 40 mg PO DAILY 05/08/18 09/09/18 metoprolol tartrate 1 tab PO DAILY 05/08/18 09/09/18 cholecalciferol (vitamin D3) 1,000 mg PO DAILY 09/09/18 09/09/18 [Vitamin D3] cyclobenzaprine 10 mg PO TID 09/09/18 09/09/18 desmopressin 0.1 mg PO BID 09/09/18 09/09/18 ferrous gluconate 324 mg PO DAILY 09/09/18 09/09/18 levothyroxine 200 mcg PO DAILY 09/09/18 09/09/18 quetiapine [Seroquel] 200 mg PO PRN PRN 09/09/18 09/09/18 sennosides-docusate sodium [DOK 1 tab PO QHS PRN 09/09/18 09/09/18 Plus] amoxicillin-pot clavulanate 1 tab PO BID #8 tab 09/11/18 [Augmentin] doxycycline hyclate 100 mg PO BID #8 tab 09/11/18 hydrocortisone 10 mg PO BID #10 tab 09/11/18 Previous Rx's Medication Instructions Recorded amoxicillin-pot clavulanate 1 tab PO BID #8 tab 09/11/18 [Augmentin] doxycycline hyclate 100 mg PO BID #8 tab 09/11/18 hydrocortisone 10 mg PO BID #10 tab 09/11/18 Allergies Allergy/AdvReac Type Severity Reaction Status Date / Time gemfibrozil [From Lopid] AdvReac Unknown Unverified 09/09/18 13:38 General KWASI: 3 Review of Systems Review of Systems Constitutional: denies fevers Eyes: denies eye pain ENT: denies facial pain, dental pain, sore throat Cardiovascular: denies chest pain Respiratory: denies SOB, cough GI: denies abdominal pain, vomiting, diarrhea : denies flank pain, report decreased urinaration MSK: denies back pain, neck pain, arthralgias, reports chronic lower leg myalgias that are unchanged from baseline Skin: denies rash Neuro: denies headaches, numbness, weakness Review of systems provided by caregivers [facility] Medical History Urinary retention (Acute) Hx of fracture of pelvis (Acute) 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) Constipation (Acute) Leg cramps (Acute) Insomnia (Acute) GERD (gastroesophageal reflux disease) (Chronic) Seizures (Acute) CVA (cerebral vascular accident) (Chronic) TBI (traumatic brain injury) (Acute) History of brain tumor (Acute) Social History Smoking/Tobacco Use Status: Never Drug use: Never Do you feel safe in your relationship?: Yes Exam Narrative Exam Narrative: Constitutional: Acutely [id number], occasionally uses 1 word or short sentence responses but minimally verbal which is at baseline per caregivers HENT: head atraumatic/normocephalic/normal inspection, mucous membranes moist Eyes: conjunctiva normal, sclera normal, pupils 3mm b/l Neck: no stridor, normal ROM, trachea midline Chest: normal inspection Resp: normal work of breathing, LCTAB Cardio: Tachycardic rate, normal rhythm, no murmur appreciated GI: abdomen soft, non-tender, non-distended Back: normal inspection, no rash Skin: warm, dry, normal color, no rash Neuro: Alert, responds to caregivers with 1 word or short sentence answers which is at his baseline, for example responds no when asked if it is okay if we take his blood pressure. Moving all extremities. Less cooperative with par ticipating in medical care as usual per caregivers but otherwise at his neurologic baseline Ext: no edema, no rash
[2018-09-09] MEDS: CEFEPIME 2 GM in Normal Saline 100 ML IVPB (13:40)
--- NOTE | 2018-09-09 13:42 | NUR.NOTE ---
at admit PT temperature was 39C current temp 1341 at 37.5
[2018-09-09] MEDS: Lactated Ringers 1,000 ML 1000 ML IV (14:33)
[2018-09-09] MEDS: VANCOMYCIN 2,000 MG in Normal Saline 500 ML 250 MG IVPB (14:34)
--- NOTE | 2018-09-09 14:46 | PDOC.ERCMPRO ---
Care Management Progress Note 09/09-Miguel Angel presents to the emergency department today for decreased urination and some confusion. Miguel Angel has a history of a TBI and is blind. This CM called his sister, Bettina Burgos, who is his guardian. She lives in [place]. Bettina informs this CM that Miguel Angel has an apartment in [facility] and that [facility] provides 24 hour support for him. Currently he has two caregivers here with him. He receives services through [facility]. Elizabeth Holcomb is his director of cardiopulmonary services and Genna Ortiz is his Co-director of cardiopulmonary services, both can be reached at [phone]. Sister states that he receives care from Dr. Wilder Zaidi, chief drafter at [facility]. Dr. Anant Macias did call Dr. Wilder Zaidi but Dr. Zaidi states his care was transferred to endocrinology at [facility]. Please see Dr. Anant Macias's note. Bettina has this CM's contact information if further assistance is needed. Recommended that Bettina call back for an update. Patients provider is Subha Colon at [facility]. He is new to [facility]. Will assist Dr. Vee Macias as needed.
--- NOTE | 2018-09-09 14:53 | CMPROGNOTE_ITS ---
Care Management Progress Note 09/09-Miguel Angel presents to the emergency department today for decreased urination and some confusion. Miguel Angel has a history of a TBI and is blind. This CM called his sister, Bettina Burgos, who is his guardian. She lives in [place]. Bettina informs this CM that Miguel Angel has an apartment in [facility] and that [facility] provides 24 hour support for him. Currently he has two caregivers here with him. He receives services through [employer]. Elizabeth Holcomb is his funeral service apprentice and Genna Ortiz is his Co-funeral service apprentice, both can be reached at [phone]. Sister states that he receives care from Dr. Wilder Zaidi, manager of construction at [facility]. Dr. Anant Macias did call Dr. Wilder Zaidi but Dr. Zaidi states his care was transferred to endocrinology at [facility]. Please see Dr. Anant Macias's note. Bettina has this CM's contact information if further assistance is needed. Recommended that Bettina call back for an update. Patients provider is Subha Colon at [facility]. He is new to [facility]. Will assist Dr. Vee Macias as needed.
--- NOTE | 2018-09-09 18:04 | W.PM.HP.N ---
Assessment and Plan (1) Aspiration pneumonia: Current visit: Yes Status: Acute Suspected with fever, reported shortness of breath and likely aspiration. No leukocytosis. Chest x-ray did not show acute process. Antibiotics with Zosyn and doxy. PRN nebs. Oxygen as needed. Repeat labs in the morning. (2) Panhypopituitarism: Current visit: Yes Status: Acute Previous provider discussed with [facility] endocrinology. Will continue desmopressin increase hydrocortisone as recommended. (3) GERD (gastroesophageal reflux disease): Current visit: Yes Status: Chronic Continue omeprazole. (4) Seizures: Current visit: Yes Status: Acute Continue Zonisamide. (5) CVA (cerebral vascular accident): Current visit: Yes Status: Chronic Continue aspirin and atorvastatin. (6) Leg cramps: Current visit: Yes Status: Acute Continue cyclobenzaprine. (7) Insomnia: Current visit: Yes Status: Acute Continue trazodone. (8) Urinary retention: Current visit: Yes Status: Acute Possible cause of fever. UA negative. Bladder scan for PVR. Will place morse if indicated. (9) Discharge planning issues: Current visit: Yes Status: Acute He is ordered FULL CODE. Will discuss this with his sister/guardian to ensure that she agrees. he has 24/7 caregivers through [facility], they will remain with him here in the hospital. This case was discussed with Dr. Rosenthal who is in agreement. (10) DVT prophylaxis: Current visit: Yes Status: Acute Subcutaneous lovenox. History of Present Illness Chief Complaint: fever Narrative: Mr. 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 He was hospitalized for several months of 2018 at [facility] after having a seizure and sustaining a pelvic fracture that required repair. In the ED he was noted to have a temperature of 39. His electrolytes were normal, Lactate 1.5, his TSH was <0.01, free T4 normal, he had no leukocytosis, his UA was negative. His chest x-ray was a limited exam, however it did not show an acute pulmonary process. The ED attending contacted Endocrinology at [facility] who gave recommendations to admit the patient and increase his hyrocortisone dose and agreed with initiating antibiotics. The patient is unable to answer questions due to communication barriers. His caregivers report that he did cough while eating dinner last night, raising concern for aspiration pneumonia. They report shortness of breath and wheezing. They also report urinary incontinence in the setting of a history of urinary retention. He has been eating and drinking and tolerating his diet, no nausea, vomiting or diarrhea, they do not suspect any dental pain or sore throat. His caregivers report that his feet and knees were blue this morning, unclear if he was sleeping at that time. They deny blue extremities at this time. They note increased agitation, he has agitation at baseline, but they report that this increases when he is ill. Review of Systems Review of Systems All systems reviewed & are unremarkable except as noted in HPI and below PFS Medical History Urinary retention (Acute) Hx of fracture of pelvis (Acute) 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) Constipation (Acute) Leg cramps (Acute) Insomnia (Acute) GERD (gastroesophageal reflux disease) (Chronic) Seizures (Acute) CVA (cerebral vascular accident) (Chronic) TBI (traumatic brain injury) (Acute) History of brain tumor (Acute) Social History Smoking and Tabacco status: Never Meds Home Medications Medication Instructions Recorded Confirmed Type desmopressin 0.5 tab PO TID 12/29/15 09/09/18 History hydrocortisone [Cortef] 20 mg PO TID 12/29/15 09/09/18 History omeprazole 1 cap PO DAILY 12/29/15 09/09/18 History testosterone [AndroGel] 3 applic TOPICAL DAILY 12/29/15 09/09/18 History trazodone 2 tab PO QPM 12/29/15 09/09/18 History zonisamide 1 cap PO QPM 12/29/15 09/09/18 History aspirin [Aspir-81] 1 tab PO DAILY 05/08/18 09/09/18 History atorvastatin 40 mg PO DAILY 05/08/18 09/09/18 History metoprolol tartrate 1 tab PO DAILY 05/08/18 09/09/18 History cholecalciferol (vitamin D3) 1,000 mg PO DAILY 09/09/18 09/09/18 History [Vitamin D3] cyclobenzaprine 10 mg PO TID 09/09/18 09/09/18 History desmopressin 0.1 mg PO BID 09/09/18 09/09/18 History ferrous gluconate 324 mg PO DAILY 09/09/18 09/09/18 History levothyroxine 200 mcg PO DAILY 09/09/18 09/09/18 History quetiapine [Seroquel] 200 mg PO PRN PRN 09/09/18 09/09/18 History sennosides-docusate sodium [DOK 1 tab PO QHS PRN 09/09/18 09/09/18 History Plus] Allergies Allergy/AdvReac Type Severity Reaction Status Date / Time gemfibrozil [From Lopid] AdvReac Unknown Unverified 09/09/18 13:38 Exam Narrative Exam Narrative: General: 28 year old male, lying in bed with his eyes closed, makes incoherent noises at times, pulling at gown and blankets. does not appear to be in any acute distress. HEENT: scar across the top of his head from previous surgery, poor dentition, mucous membranes moist. Neck: supple, no JVD. Respiratory: Respirations even and unlabored. Lung sounds diminished throughout, wheezing throughout. He was unable to follow instructions to take deep breaths. Cardiovascular: Heart has regular rate and rhythm, unable to detect murmur over loud lung sounds. Abdomen: +BS, soft, nontender. Extremities: no cyanosis, no pitting edema, faint pedal pulses. Results Labs : 09/10/18 06:30 09/11/18 06:55 Laboratory Results - last 24 hr 09/09/18 09/09/18 09/09/18 12:36 12:36 12:37 WBC 6.37 RBC 5.59 Hgb 13.6 Hct 41.9 MCV 75.0 L MCH 24.3 L MCHC 32.5 RDW 16.9 H Plt Count 205 MPV 9.5 Immature Gran % 0.2 Neutrophils % 70.5 Lymphocytes % 15.9 Monocytes % 11.8 Eosinophils % 1.4 Basophils % 0.2 Absolute Neutrophils 4.50 Absolute Lymphocytes 1.01 L Absolute Monocytes 0.75 H Absolute Eosinophils 0.09 Absolute Basophils 0.01 Sodium 138 Potassium 3.7 Chloride 101 Carbon Dioxide 28.0 Anion Gap 9.0 BUN 18 Creatinine 1.08 Estimated GFR/1.73 m2 >= 60.00 Glucose 96 Lactate 1.5 H Calcium 8.5 Total Bilirubin 0.6 AST 30 ALT 82 H Alkaline Phosphatase 173 H Total Protein 7.4 Albumin 3.7 TSH Free T4 Urine Color Urine Clarity Urine pH Ur Specific [place] Urine Protein Urine Ketones Urine Blood Urine Nitrite Urine Bilirubin Urine Urobilinogen Ur Leukocyte Esterase Urine Glucose 09/09/18 09/09/18 12:37 13:11 WBC RBC Hgb Hct MCV MCH MCHC RDW Plt Count MPV Immature Gran % Neutrophils % Lymphocytes % Monocytes % Eosinophils % Basophils % Absolute Neutrophils Absolute Lymphocytes Absolute Monocytes Absolute Eosinophils Absolute Basophils Sodium Potassium Chloride Carbon Dioxide Anion Gap BUN Creatinine Estimated GFR/1.73 m2 Glucose Lactate Calcium Total Bilirubin AST ALT Alkaline Phosphatase Total Protein Albumin TSH < 0.01 L Free T4 0.93 Urine Color Yellow Urine Clarity Clear Urine pH 7.0 Ur Specific [place] 1.025 Urine Protein Negative Urine Ketones Negative Urine Blood Negative Urine Nitrite Negative Urine Bilirubin Negative Urine Urobilinogen 1.0 H Ur Leukocyte Esterase Negative Urine Glucose Negative Last Vital Signs Temp 39 C H 09/09/18 12:46 Pulse 125 H 09/09/18 12:46 Resp 17 09/09/18 16:27 BP 129/90 09/09/18 12:46 Pulse Ox 89 L 09/09/18 14:20
--- NOTE | 2018-09-09 18:13 | HPE_ITS ---
Assessment and Plan (1) Aspiration pneumonia: Current visit: Yes Status: Acute Suspected with fever, reported shortness of breath and likely aspiration. No leukocytosis. Chest x-ray did not show acute process. Antibiotics with Zosyn and doxy. PRN nebs. Oxygen as needed. Repeat labs in the morning. (2) Panhypopituitarism: Current visit: Yes Status: Acute Previous provider discussed with [facility] endocrinology. Will continue desmopr essin increase hydrocortisone as recommended. (3) GERD (gastroesophageal reflux disease): Current visit: Yes Status: Chronic Continue omeprazole. (4) Seizures: Current visit: Yes Status: Acute Continue Zonisamide. (5) CVA (cerebral vascular accident): Current visit: Yes Status: Chronic Continue aspirin and atorvastatin. (6) Leg cramps: Current visit: Yes Status: Acute Continue cyclobenzaprine. (7) Insomnia: Current visit: Yes Status: Acute Continue trazodone. (8) Urinary retention: Current visit: Yes Status: Acute Possible cause of fever. UA negative. Bladder scan for PVR. Will place morse if indicated. (9) Discharge planning issues: Current visit: Yes Status: Acute He is ordered FULL CODE. Will discuss this with his sister/guardian to ensure that she agrees. he has 24/7 caregivers through [facility], they will remain with him here in the hospital. This case was discussed with Dr. Rosenthal who is in agreement. (10) DVT prophylaxis: Current visit: Yes Status: Acute Subcutaneous lovenox. History of Present Illness Chief Complaint: fever Narrative: Mr. 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 He was hospitalized for several months of 2018 at [facility] [place] after having a seizure and sustaining a pelvic fracture that required repair. In the ED he was noted to have a temperature of 39. His electrolytes were normal, Lactate 1.5, his TSH was <0.01, free T4 normal, he had no leukocytosis, his UA was negative. His chest x-ray was a limited exam, however it did not show an acute pulmonary process. The ED attending contacted Endocrinology at [facility] who gave recommendations to admit the patient and increase his hyrocortisone dose and agreed with initiating antibiotics. The patient is unable to answer questions due to communication barriers. His caregivers report that he did cough while eating dinner last night, raising concern for aspiration pneumonia. They report shortness of breath and wheezing. They also report urinary incontinence in the setting of a history of urinary re tention. He has been eating and drinking and tolerating his diet, no nausea, vomiting or diarrhea, they do not suspect any dental pain or sore throat. His caregivers report that his feet and knees were blue this morning, unclear if he was sleeping at that time. They deny blue extremities at this time. They note increased agitation, he has agitation at baseline, but they report that this increases when he is ill. Review of Systems Review of Systems All systems reviewed & are unremarkable except as noted in HPI and below [facility] Medical History Urinary retention (Acute) Hx of fracture of pelvis (Acute) 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) Constipation (Acute) Leg cramps (Acute) Insomnia (Acute) GERD (gastroesophageal reflux disease) (Chronic) Seizures (Acute) CVA (cerebral vascular accident) (Chronic) TBI (traumatic brain injury) (Acute) History of brain tumor (Acute) Social History Smoking and Tabacco status: Never Meds Home Medications Medication Instructions Recorded Confirmed Type desmopressin 0.5 tab PO TID 12/29/15 09/09/18 History hydrocortisone [Cortef] 20 mg PO TID 12/29/15 09/09/18 History omeprazole 1 cap PO DAILY 12/29/15 09/09/18 History testosterone [AndroGel] 3 applic TOPICAL DAILY 12/29/15 09/09/18 History trazodone 2 tab PO QPM 12/29/15 09/09/18 History zonisamide 1 cap PO QPM 12/29/15 09/09/18 History aspirin [Aspir-81] 1 tab PO DAILY 05/08/18 09/09/18 History atorvastatin 40 mg PO DAILY 05/08/18 09/09/18 History metoprolol tartrate 1 tab PO DAILY 05/08/18 09/09/18 History cholecalciferol (vitamin D3) 1,000 mg PO DAILY 09/09/18 09/09/18 History [Vitamin D3] cyclobenzaprine 10 mg PO TID 09/09/18 09/09/18 History desmopressin 0.1 mg PO BID 09/09/18 09/09/18 History ferrous gluconate 324 mg PO DAILY 09/09/18 09/09/18 History levothyroxine 200 mcg PO DAILY 09/09/18 09/09/18 History quetiapine [Seroquel] 200 mg PO PRN PRN 09/09/18 09/09/18 History sennosides-docusate sodium [DOK 1 tab PO QHS PRN 09/09/18 09/09/18 History Plus] Allergies Allergy/AdvReac Type Severity Reaction Status Date / Time gemfibrozil [From Lopid] AdvReac Unknown Unverified 09/09/18 13:38 Exam Narrative Exam Narrative: General: 28 year old male, lying in bed with his eyes closed, makes incoherent noises at times, pulling at gown and blankets. does not appear to be in any acute distress. HEENT: scar across the top of his head from previous surgery, poor dentition, mucous membranes moist. Neck: supple, no JVD. Respiratory: Respirations even and unlabored. Lung sounds diminished throughout, wheezing throughout. He was unable to follow instructions to take deep breaths. Cardiovascular: Heart has regular rate and rhythm, unable to detect murmur over loud lung sounds. Abdomen: +BS, soft, nontender. Extremities: no cyanosis, no pitting edema, faint pedal pulses. Results Labs : 09/10/18 06:30 09/11/18 06:55 Laboratory Results - last 24 hr 09/09/18 09/09/18 09/09/18 12:36 12:36 12:37 WBC 6.37 RBC 5.59 Hgb 13.6 Hct 41.9 MCV 75.0 L MCH 24.3 L MCHC 32.5 RDW 16.9 H Plt Count 205 MPV 9.5 Immature Gran % 0.2 Neutrophils % 70.5 Lymphocytes % 15.9 Monocytes % 11.8 Eosinophils % 1.4 Basophils % 0.2 Absolute Neutrophils 4.50 Absolute Lymphocytes 1.01 L Absolute Monocytes 0.75 H Absolute Eosinophils 0.09 Absolute Basophils 0.01 Sodium 138 Potassium 3.7 Chloride 101 Carbon Dioxide 28.0 Anion Gap 9.0 BUN 18 Creatinine 1.08 Estimated GFR/1.73 m2 >= 60.00 Glucose 96 Lactate 1.5 H Calcium 8.5 Total Bilirubin 0.6 AST 30 ALT 82 H Alkaline Phosphatase 173 H Total Protein 7.4 Albumin 3.7 TSH Free T4 Urine Color Urine Clarity Urine pH Ur Specific Cass Urine Protein Urine Ketones Urine Blood Urine Nitrite Urine Bilirubin Urine Urobilinogen Ur Leukocyte Esterase Urine Glucose 09/09/18 09/09/18 12:37 13:11 WBC RBC Hgb Hct MCV MCH MCHC RDW Plt Count MPV Immature Gran % Neutrophils % Lymphocytes % Monocytes % Eosinophils % Basophils % Absolute Neutrophils Absolute Lymphocytes Absolute Monocytes Absolute Eosinophils Absolute Basophils Sodium Potassium Chloride Carbon Dioxide Anion Gap BUN Creatinine Estimated GFR/1.73 m2 Glucose Lactate Calcium Total Bilirubin AST ALT Alkaline Phosphatase Total Protein Albumin TSH < 0.01 L Free T4 0.93 Urine Color Yellow Urine Clarity Clear Urine pH 7.0 Ur Specific Cass 1.025 Urine Protein Negative Urine Ketones Negative Urine Blood Negative Urine Nitrite Negative Urine Bilirubin Negative Urine Urobilinogen 1.0 H Ur Leukocyte Esterase Negative Urine Glucose Negative Last Vital Signs Temp 39 C H 09/09/18 12:46 Pulse 125 H 09/09/18 12:46 Resp 17 09/09/18 16:27 BP 129/90 09/09/18 12:46 Pulse Ox 89 L 09/09/18 14:20
[2018-09-09] MEDS: Enoxaparin 40 MG/0.4 ML SYR SC (18:43)
[2018-09-09] MEDS: DOXYCYCLINE 100 MG in Normal Saline 100 ML IVPB (22:47)
[2018-09-09] MEDS: Melatonin 3 MG TAB 9 MG PO (22:48)
[2018-09-09] MEDS: Cyclobenzaprine 10 MG TAB PO (22:48)
[2018-09-09] MEDS: QUEtiapine 100 MG TAB 200 MG PO (22:49)
[2018-09-09] MEDS: traZODone 50 MG TAB 100 MG PO (22:49)
[2018-09-09] MEDS: Zonisamide 100 MG CAP PO (23:16)
[2018-09-09] MEDS: PIPERACILLIN/TAZO 4.5 GM in Normal Saline 100 ML IVPB (23:55)
[2018-09-10] VITALS (8 sets, daily range): BP systolic 84–133; BP diastolic 41–81; PULSE 77–96; RESP 16–22; TEMP 35.6–36.3; O2SAT 93–100
[2018-09-10] MEDS: PIPERACILLIN/TAZO 4.5 GM in Normal Saline 100 ML IVPB ×3 (06:00→22:55)
[2018-09-10 07:15] LABS: Abs Immature Grans 0.01 k/cumm (0.0-0.09); Absolute Eosinophil Count 0.11 k/cumm (0.0-0.7); Absolute Lymphocyte Count 1.69 k/cumm (1.2-3.4); Absolute Monocyte Count 0.58 k/cumm (0.11-0.7); Absolute Neutrophil Count 1.97 k/cumm (1.2-6.7); Eosinophils % 2.5; HCT 35.9 % (40.0-50.0); HGB 11.7 g/dL (13.5-17.5); Immature Grans % 0.2; Lymphocytes % 38.8; Mean Corp. HGB Concentration 32.6 g/dL (32.0-36.0); Mean Corpuscular Hemoglobin 24.4 pg (27.0-33.0); Mean Corpuscular Volume 74.9 fL (80-95); Mean Platelet Volume 10.1 fL (8.0-11.0); Monocytes % 13.3; Neutrophils % 45.2; Platelet Count 195 x1000/uL (130-400); RBC 4.79 m/cumm (4.50-6.00); RBC Distribution Width 16.4 % (11.8-14.1); White Blood Cell Count 4.36 k/cumm (4.4-10.8)
[2018-09-10 07:32] LABS: Anion Gap 9.1 mmol/L (3-11); BUN 14 mg/dL (7-18); CO2 25.9 mmol/L (21.0-32.0); CREATININE 0.94 mg/dL (0.70-1.30); Calcium 7.8 mg/dL (8.5-10.1); Chloride 104 mmol/L (98-107); Glucose 80 mg/dL (70-100); Magnesium 1.7 mg/dL (1.8-2.4); Potassium 3.1 mmol/L (3.5-5.1); Sodium 139 mmol/L (136-145)
[2018-09-10] MEDS: Omeprazole 20 MG CAPCR PO (08:55)
[2018-09-10] MEDS: Atorvastatin 40 MG TAB PO (08:56)
[2018-09-10] MEDS: Hydrocortisone 10 MG TAB 60 MG PO (08:56)
[2018-09-10] MEDS: Levothyroxine 25 MCG TAB PO (08:57)
[2018-09-10] MEDS: Metoprolol CR 25 MG TABCR 75 MG PO (08:57)
[2018-09-10] MEDS: Aspirin E.C. 81 MG TABEC PO (08:57)
[2018-09-10] MEDS: Levothyroxine 200 MCG TAB PO (08:57)
[2018-09-10] MEDS: Ferrous Gluconate 324 MG TAB PO (08:57)
[2018-09-10] MEDS: Cyclobenzaprine 10 MG TAB PO ×3 (08:57→20:01)
[2018-09-10] MEDS: Desmopressin 0.2 MG TAB 0.1 MG PO (08:59)
--- NOTE | 2018-09-10 10:20 | PDOC.CMIN ---
- If Service Date Differs Date of service: 09/10/18 Time of Service: 10:20 Care Management Initial Assess REASON FOR HOSPITALIZATION:: Fever, Hypopituitarism, AMS PAST MEDICAL HISTORY/PAST SURGICAL HISTORY:: Urinary retention (Acute). Hx of fracture of pelvis (Acute). 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Acute). Diabetes insipidus (Acute). Cortical blindness (Acute). Constipation (Acute). Leg cramps (Acute). Insomnia (Acute). GERD (gastroesophageal reflux disease) (Chronic). Seizures (Acute). CVA (cerebral vascular accident) (Chronic). TBI (traumatic brain injury) (Acute). History of brain tumor (Acute) PREVIOUS FUNCTIONAL STATUS/SOCIAL/FAMILY SUPPORTS:: Miguel Angel resides in an apartment in [facility] with 24/7 caregiver support through [facility]. He has a sister whom does not reside locally and is his guardian. Elizabeth Holcomb is Miguel Angel's medical service technician, and Genna Ortiz is his co-commissions coordinator ([phone]). CURRENT FUNCTIONAL STATUS:: Lying in bed, has a caregiver in the room with him. ADVANCE DIRECTIVES:: Miguel Angel Burgos is his guardian - documentation needed for file. Has patient been provided with information about the portal?: No Did the patient sign up for the portal?: No CODE STATUS:: Full Code INSURANCE COVERAGE / FINANCIAL ISSUES:: Medicaid CURRENT HOME/COMMUNITY SERVICES/EQUIPMENT:: Currently Miguel Angel receives 24/7 caregiver support through [facility]. PRIMARY CARE PHYSICIAN:: Lc Venegas POTENTIAL DISCHARGE NEEDS:: F/U appointment with PCP. Resume caregiver supports through [facility] PATIENT/FAMILY EDUCATION NEEDS:: Review DC instructions, any limitations, and ongoing DC planning discussion. Discuss 'Ask Me Three' ANTICIPATED BARRIERS TO DISCHARGE:: None identified at this time. TRANSPORTATION:: Via private vehicle with caregivers. PLAN:: Miguel Angel to return to his apartment in [facility] with his caregivers. He will F/U with PCP and plan of care as prescribed. His caregivers to transport when ready.
[2018-09-10] MEDS: DOXYCYCLINE 100 MG in Normal Saline 100 ML IVPB ×2 (10:22→21:20)
--- NOTE | 2018-09-10 10:35 | INITIAL_ITS ---
- If Service Date Differs Date of service: 09/10/18 Time of Service: 10:20 Care Management Initial Assess REASON FOR HOSPITALIZATION:: Fever, Hypopituitarism, AMS PAST MEDICAL HISTORY/PAST SURGICAL HISTORY:: Urinary retention (Acute). Hx of fracture of pelvis (Acute). 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Acute). Diabetes insipidus (Acute). Cortical blindness (Acute). Constipation (Acute). Leg cramps (Acute). Insomnia (Acute). GERD (gastroesophageal reflux disease) (Chronic). Seizures (Acute). CVA (cerebral vascular accident) (Chronic). TBI (traumatic brain injury) (Acute). History of brain tumor (Acute) PREVIOUS FUNCTIONAL STATUS/SOCIAL/FAMILY SUPPORTS:: Miguel Angel resides in an apartment in [facility] with 24/7 caregiver support through [facility]. He has a sister whom does not reside locally and is his guardian. Elizabeth Holcomb is Miguel Angel's employee service officer, and Genna Ortiz is his co-testing coordinator ([phone]). CURRENT FUNCTIONAL STATUS:: Lying in bed, has a caregiver in the room with him. ADVANCE DIRECTIVES:: Miguel Angel Burgos is his guardian - documentation needed for file. Has patient been provided with information about the portal?: No Did the patient sign up for the portal?: No CODE STATUS:: Full Code INSURANCE COVERAGE / FINANCIAL ISSUES:: Medicaid CURRENT HOME/COMMUNITY SERVICES/EQUIPMENT:: Currently Miguel Angel receives 24/7 caregiver support through [facility]. PRIMARY CARE PHYSICIAN:: Lc Venegas POTENTIAL DISCHARGE NEEDS:: F/U appointment with PCP. Resume caregiver supports through [facility] PATIENT/FAMILY EDUCATION NEEDS:: Review DC instructions, any limitations, and ongoing DC planning discussion. Discuss 'Ask Me Three' ANTICIPATED BARRIERS TO DISCHARGE:: None identified at this time. TRANSPORTATION:: Via private vehicle with caregivers. PLAN:: Miguel Angel to return to his apartment in [facility] with his caregivers. He will F/U with PCP and plan of care as prescribed. His caregivers to transport when ready.
[2018-09-10 10:39] LABS: Diff Comment RBC Morph Reviewed; Microcytosis 1+
[2018-09-10] MEDS: Normal Saline Flush 10 ML SYR ×2 (11:13→11:59)
[2018-09-10] MEDS: Potassium Chloride 20 MEQ TABCR 40 MEQ PO ×2 (12:08→20:00)
[2018-09-10] MEDS: Hydrocortisone 10 MG TAB 20 MG PO (12:08)
[2018-09-10] MEDS: Magnesium Oxide 400 MG TAB PO ×2 (12:09→20:00)
--- NOTE | 2018-09-10 13:24 | PGE_ITS ---
Date of Service Date of service: 09/10/18 Time of Service: 13:21 Assessment and Plan (1) Aspiration pneumonia: Current visit: Yes Status: Acute Suspected with fever, reported shortness of breath and likely aspiration. Improving clinically. No leukocytosis. Chest x-ray did not show acute process on admission. Repeat chest x-ray. Continue antibiotics with Zosyn and doxy. PRN nebs. Oxygen as needed. Repeat labs in the morning. Monitor blood cultures. (2) Panhypopituitarism: Current visit: Yes Status: Acute Previous provider discussed with [facility] endocrinology. Continue desmopressin, increase hydrocortisone as recommended. Discuss Hydrocortisone taper duration with Textile Examiner. (3) GERD (gastroesophageal reflux disease): Current visit: Yes Status: Chronic Continue omeprazole. (4) Seizures: Current visit: Yes Status: Acute Continue Zonisamide. (5) CVA (cerebral vascular accident): Current visit: Yes Status: Chronic Continue aspirin and atorvastatin. (6) Leg cramps: Current visit: Yes Status: Acute Continue cyclobenzaprine. (7) Insomnia: Current visit: Yes Status: Acute Continue trazodone. (8) Urinary retention: Current visit: Yes Status: Acute UA negative. Does not appear to be retaining urine. Continue to bladder scan for PVR. Place morse if indicated. (9) Discharge planning issues: Current visit: Yes Status: Acute He is ordered FULL CODE. Will discuss this with his sister/guardian to ensure that she agrees. he has 24/7 caregivers through [facility], they will remain with him here in the hospital. This case was discussed with Dr. Rosenthal who is in agreement. (10) DVT prophylaxis: Current visit: Yes Status: Acute Subcutaneous lovenox. Subjective Interval history since last seen: Mr. Burgos's caregivers are present and report that he is doing much better today. He is resting comfortably. He has been out of bed to the bathroom, he was able to void, PVR was in the 40s. They report that he is no longer wheezing or short of breath, he has a rare, nonproductive cough. He is eating and drinking and tolerating his diet. He had a large bowel movement. The caregivers do not believe he is in pain, they report that he is less agitated and more like himself today. He is cooperating with nursing. Exam Narrative Exam Narrative: General: 28 year old male, lying in bed with his eyes closed, occasionally speaks to caregivers in short phases. Does not appear to be in acute distress. HEENT: eyes closed, has a scar across the top of his head from previous surgery, poor dentition, mucous membranes moist. Neck: supple, no JVD. Respiratory: Respirations even and unlabored. Lung sounds clear to auscultation, able to follow commands to take deep breaths today. Cardiovascular: Heart has regular rate and rhythm, no murmur appreciated. Abdomen: +BS, soft, nontender on palpation. Extremities: no cyanosis, no pitting edema, faint pedal pulses. Skin: no open areas or cellulitis noted. Objective Objective Clinical Data: Abnormal lab results 09/09/18 09/10/18 09/10/18 Range/Units 13:11 06:30 06:30 WBC 4.36 L D (4.4-10.8) k/cumm Hgb 11.7 L (13.5-17.5) g/dL Hct 35.9 L (40.0-50.0) % MCV 74.9 L (80-95) fL MCH 24.4 L (27.0-33.0) pg RDW 16.4 H (11.8-14.1) % Potassium 3.1 L (3.5-5.1) mmol/L Calcium 7.8 L (8.5-10.1) mg/dL Magnesium 1.7 L (1.8-2.4) mg/dL Urine Urobilinogen 1.0 H (Up TO 0.2) EU/dL Vital Signs Temperature 36.2 C L 09/10/18 11:15 Temperature Source Tympanic 09/10/18 11:15 Pulse 94 H 09/10/18 11:15 Pulse Rhythm Regular 09/09/18 22:00 Pulse 94 H 09/09/18 18:10 Respiratory Rate 20 09/10/18 11:15 Respiratory Effort 09/10/18 10:44 Respiratory Depth Normal 09/10/18 10:44 Respiratory Pattern Normal 09/10/18 10:44 Blood Pressure 133/81 09/10/18 11:15 Blood Pressure Mean 101 09/09/18 12:46 Blood Pressure Position Supine 09/09/18 12:46 Pulse Oximetry 99 09/10/18 11:15 Oxygen Delivery Method Room Air 09/10/18 07:35 Oxygen Flow Rate 0 09/10/18 07:35 Pain Level 0 09/10/18 00:30 Comment 09/10/18 02:50 Intake & Output 09/09/18 09/10/18 09/10/18 23:59 11:59 23:59 Intake Total 1830 / 1830 450 / 450 Output Total 700 / 700 450 / 450 Balance 1130 / 1130 0 / 0 Weight 96.615 kg 100 kg Intake: IV 1710 / 1710 200 / 200 Oral 120 / 120 250 / 250 Output: Urine 700 / 700 450 / 450 Other: Urine Color Yellow Urine Appearance Clear Urine Odor Strong Comment unable to void Voiding Methods Bedside Commode Laboratory Results WBC 4.36 k/cumm (4.4-10.8) L D 09/10/18 06:30 RBC 4.79 m/cumm (4.50-6.00) 09/10/18 06:30 Hgb 11.7 g/dL (13.5-17.5) L 09/10/18 06:30 Hct 35.9 % (40.0-50.0) L 09/10/18 06:30 MCV 74.9 fL (80-95) L 09/10/18 06:30 MCH 24.4 pg (27.0-33.0) L 09/10/18 06:30 MCHC 32.6 g/dL (32.0-36.0) 09/10/18 06:30 RDW 16.4 % (11.8-14.1) H 09/10/18 06:30 Plt Count 195 x1000/uL (130-400) 09/10/18 06:30 MPV 10.1 fL (8.0-11.0) 09/10/18 06:30 Immature Gran % 0.2 09/10/18 06:30 Neutrophils % 45.2 09/10/18 06:30 Lymphocytes % 38.8 09/10/18 06:30 Monocytes % 13.3 09/10/18 06:30 Eosinophils % 2.5 09/10/18 06:30 Basophils % 0.0 09/10/18 06:30 Absolute Neutrophils 1.97 k/cumm (1.2-6.7) 09/10/18 06:30 Absolute Lymphocytes 1.69 k/cumm (1.2-3.4) 09/10/18 06:30 Absolute Monocytes 0.58 k/cumm (0.11-0.7) 09/10/18 06:30 Absolute Eosinophils 0.11 k/cumm (0.0-0.7) 09/10/18 06:30 Absolute Basophils 0.00 k/cumm (0.0-0.2) 09/10/18 06:30 Differential Comment Rbc morph reviewed 09/10/18 06:30 RBC Morphology See below 09/10/18 06:30 Microcytosis 1+ 09/10/18 06:30 Sodium 139 mmol/L (136-145) 09/10/18 06:30 Potassium 3.1 mmol/L (3.5-5.1) L 09/10/18 06:30 Chloride 104 mmol/L (98-107) 09/10/18 06:30 Carbon Dioxide 25.9 mmol/L (21.0-32.0) 09/10/18 06:30 Anion Gap 9.1 mmol/L (3-11) 09/10/18 06:30 BUN 14 mg/dL (7-18) 09/10/18 06:30 Creatinine 0.94 mg/dL (0.70-1.30) 09/10/18 06:30 Estimated GFR/1.73 m2 >= 60.00 (mL/min/1.73m2) 09/10/18 06:30 Glucose 80 mg/dL (70-100) 09/10/18 06:30 Lactate 1.5 mmol/l (0.6-1.4) H 09/09/18 12:37 Calcium 7.8 mg/dL (8.5-10.1) L 09/10/18 06:30 Magnesium 1.7 mg/dL (1.8-2.4) L 09/10/18 06:30 Total Bilirubin 0.6 mg/dL (0.2-1.0) 09/09/18 12:36 AST 30 U/L (15-37) 09/09/18 12:36 ALT 82 U/L (12-78) H 09/09/18 12:36 Alkaline Phosphatase 173 U/L (46-116) H 09/09/18 12:36 Total Protein 7.4 g/dL (6.4-8.2) 09/09/18 12:36 Albumin 3.7 g/dL (3.4-5.0) 09/09/18 12:36 TSH < 0.01 uIU/mL (0.358-3.74) L 09/09/18 12:37 Free T4 0.93 ng/dL (0.76-1.46) 09/09/18 12:37 Urine Color Yellow (Yellow) 09/09/18 13:11 Urine Clarity Clear 09/09/18 13:11 Urine pH 7.0 (5-8) 09/09/18 13:11 Ur Specific Rush 1.025 (1.005-1.025) 09/09/18 13:11 Urine Protein Negative mg/dL (Negative) 09/09/18 13:11 Urine Ketones Negative mg/dL (Negative) 09/09/18 13:11 Urine Blood Negative (Negative) 09/09/18 13:11 Urine Nitrite Negative (Negative) 09/09/18 13:11 Urine Bilirubin Negative (Negative) 09/09/18 13:11 Urine Urobilinogen 1.0 EU/dL (Up TO 0.2) H 09/09/18 13:11 Ur Leukocyte Esterase Negative (Negative) 09/09/18 13:11 Urine Glucose Negative mg/dL (Negative) 09/09/18 13:11
[2018-09-10] MEDS: QUEtiapine 25 MG TAB PO (14:28)
--- NOTE | 2018-09-10 15:26 | IN_ITS ---
Date of service: 09/10/18 Time of Service: 14:28 PT Notes Inpatient Physical Therapy Evaluation Date: 09/10/2018 Referring Doctor: Jessika Slade PT Orders: PT CONSULT: Generalized weakness, history of TBI, CVA (left?sided weakness at baseline), cortical blindness Precautions: Fall. Standard. Cortical blindness. Patient Profile/Admitting Diagnosis: Patient is a 28-year-old male who was seen today for fever, panhypopituitarism, shortness of breath. hairmasters manager Lala and caregiver Leann were both present during the evaluation who state that patient has had significant mobility decline. PMHX: Urinary retention. Hx of fracture of pelvis. Panhypopituitarism. Diabetes insipidus. Cortical blindness . Constipation . Leg cramps. Insomnia. GERD Seizures. CVA (cerebral vascular accident). TBI (traumatic brain injury). History of brain tumor. Social History/Home Situation: Miguel Angel resides in an apartment in [facility] with 24/7 caregiver support through [facility]. He has a sister who does not reside locally and is his guardian. Elizabeth Holcomb is Miguel Angel's dental service technician, and Genna Ortiz is his co-asset management coordinator ([phone]). Miguel Angel resides in an apartment in [facility] with 24/7 caregiver support through [facility]. He has a sister whom does not reside locally and is his guardian. Elizabeth Holcomb is Miguel Angel's dental service technician, and Genna Ortiz is his co-asset management coordinator ([phone]). Equipment Owned/DME: W. Hospital bed. Wheelchair. Subjective: Patient is seen today for initial evaluation sitting on his chair with case operator and caregiver present. Patient was agreeable to a PT consult as communicated through the help of both caregiver and case operator. Objective: General Observation: Patient sitting in chair. IV line in left UE. Mental Status: Alert and oriented as to person and place. Pain: Denies pain while in sitting. Was moaning after walking about 30 feet with hand-held assist and wheelchair follow. Expressed discomfort on the left leg upon sitting down on chair. ROM: Right Upper Extremity: WFL Left Upper Extremity: WFL Right Lower Extremity: WFL Left Lower Extremity: Patient grimaced and moaned at end range of simultaneous hip flexion and knee flexion. Caregiver states that this has been the case since Miguel Angel's pelvic fracture in August of this year. Strength: Right Upper Extremity: WFL Left Upper Extremity: WFL Right Lower Extremity: Hip flexors 4-/5. Hip extensors 4/5. Hip flexors 4-/5. Ankle dorsiflexors 4+/5. Left Lower Extremity: Hip flexors 4-/5. Hip extensors 4/5. Hip flexors 4-/5. Ankle dorsiflexors 4+/5. Bed Mobility/Transfers: Supine to sit: Mod A, maximal verbal cueing needed due to cortical blindness and impaired safety awareness. Sit to supine: Mod A, maximal verbal cueing needed due to cortical blindness and impaired safety awareness. Sit to stand: Mod A, patient works well with bilateral handheld assist by caregiver or therapist. Patient has gotten used to pulling on caregiver's or therapist's stand to stand up. Stand to sit: Mod A, patient tends to fall up onto a chair and requires moderate cueing for a slower descent. Gait: Patient tolerated about 30 feet of level surface ambulation with bilateral handheld assist and wheelchair followed by another. Full knee extension limited during mid stance. Dinora slow, step height and length reduced. Maximum verbal and tactile cueing required for directional changes and for overall safety due to cortical blindness. Balance: Static Sitting: Good Dynamic Sitting: Good Static Standing: Fair minus Dynamic Standing: Fair minus Special Tests: Mobility Limitations Standardized Measure [facility] AM-PAC 6 clicks Basic Mobility Inpatient Short Form: Raw Score: 14 CMS Score:61.29% deficit Informed Consent/Education: Patient instructed in purpose of PT consult and plan of care. Assessment: Patient is a 28-year-old year old male referred to physical therapy services with the diagnosis of aspiration pneumonia, panhypopituitarism and SOB. Patient presents with clinical signs and symptoms consistent with medical diagnosis resulting to functional mobility decline, as demonstrated by the following impairment level findings: 1. Impaired strength 2. Impaired balance 3. Reduce activity tolerance 4. Impaired safety awareness 5. Absent visual acuity due to cortical blindness 6. Developmental delay Impairments are contributing to the following functional limitations: 1. Increase dependence with bed mobility 2. Increase independence for transfer performance 3. Decreased tolerance for ambulation performance 4. Increase completion time for mobility ADL task performance Patient is assessed as a Moderate 71671 complexity based on the following: History: Patient is a 28-year-old medically complex patient with varied neurologic conditions that limit safety of mobility ADL performance. Patient requires 24/7 care due to impairments and functional deficits. Please see full medical history as noted above. Examination: Functional limitations as noted above Presentation: Evolving Decision Making: Moderate complexity Goals: Goals X1 week 1. Supine-Sit set up 2. Sit-Supine set up 3. Sit-Stand supervision 4. Stand-Sit supervision 5. Bed-Chair supervision 6. Chair-Bed supervision 7. Gait minimal assist 8. Caregivers will be independent with home exercise program assistance for the client 10. Balance good Plan of Care/Treatment Plan: 1-2x/day, 7 days/week x 1 week. Plan of care has been reviewed with the CHOIR SINGER providing the service under Physical Therapy direction. Initiate Physical Therapy intervention for strengthening, bed mobility, transfers, gait, stairs, balance training, use of assistive device. DISCHARGE RECOMMENDATIONS: Return to previous home setting with a 24/7 care with needed equipment. TREATMENT CODE/TIME: 75189, 23842 53 minutes beginning at 14:28 PM. chely Phillips, PT, DPT, CLT [facility]
--- NOTE | 2018-09-10 15:28 | DI.RAD_ITS ---
SYMPTOM/DIAGNOSIS: ? ASPIRATION PNEUMONIA, WHEEZING, SOB, FEVER AP AND LATERAL CHEST: Comparison is made with 09/09/18. The heart is normal in size. The lungs are clear. The mediastinal structures and pleura appear intact. CONCLUSION: Normal chest. The findings were discussed with Jessika Slade on the date of the examination.
--- NOTE | 2018-09-10 16:01 | PHARADMIT ---
Admission Pharmacy Clinical Review fever, hypopituitarism, AMS Code Status Full Code Current Weight Wgt- 100 kg Renally Cleared and Narrow Therapeutic Index Meds CrCl~ 97 mL/min Meds- ??? work in progress QTc Value / Action Taken QTc-460 NA BP Control, Fever BP- 133/81 Tmax- 37.1C Electrolytes reviewed Na- 139 K+-3.1 Mag- 1.7 DVT Prophylaxis ASA, Lovenox Opiate Usage / Scheduled Bowel Regimen Ordered No Yes Plt/SCr for Heparin / Enoxaparin Plts- 195 SCr-0.94 INR for Warfarin na H/H stable, WBC/Bands H&H- 11.7/35.9 WBC- 4.36 Antibiotic appropriateness Doxycycline IV, Zosyn Cultures and Sensitivities Flu-neg, Blood-no growth/24hrs Surgical ABX d/c within 24 hr na DM control / Insulin Dosing BG-80 Heart Failure (Check EF%) (NADEEM's, B-Block, Diuretics) Toprol-XL, IV to PO Switch No Home Meds Reviewed YES Home Meds Not Ordered Ordered Comments PatOwn Desmopressin & Androgel..
[2018-09-10] MEDS: LORazepam 2 MG/ML VIAL 1 MG IVP ×2 (16:20→21:29)
[2018-09-10] MEDS: Zonisamide 100 MG CAP PO (20:00)
[2018-09-10] MEDS: traZODone 50 MG TAB 100 MG PO (20:00)
[2018-09-10] MEDS: QUEtiapine 100 MG TAB 200 MG PO (21:19)
[2018-09-10] MEDS: Melatonin 3 MG TAB 9 MG PO (21:19)
[2018-09-11 00:32] VITALS: BP 117/68; PULSE 88; RESP 20; TEMP 36.2; O2SAT 95
[2018-09-11] MEDS: LORazepam 2 MG/ML VIAL 1 MG IVP (02:37)
--- NOTE | 2018-09-11 02:44 | NUR.NOTE ---
Nursing Note: Patient was restless on bed and making some noise while on bed. Ativan PRN IVP given at 2130 hrs and at 02:30 hrs and with good effect. He was incontinent of urine x 3 on this shift. Caregiver at bedside at all times. Bed alarm in progress.
[2018-09-11] MEDS: PIPERACILLIN/TAZO 4.5 GM in Normal Saline 100 ML IVPB (05:14)
[2018-09-11] MEDS: Hydrocortisone 10 MG TAB 40 MG PO (07:30)
[2018-09-11] MEDS: Magnesium Oxide 400 MG TAB PO (07:30)
[2018-09-11] MEDS: Desmopressin 0.2 MG TAB 0.1 MG PO (07:30)
[2018-09-11] MEDS: QUEtiapine 25 MG TAB PO (07:30)
[2018-09-11] MEDS: Atorvastatin 40 MG TAB PO (07:30)
[2018-09-11] MEDS: Metoprolol CR 25 MG TABCR 75 MG PO (07:30)
[2018-09-11] MEDS: Aspirin E.C. 81 MG TABEC PO (07:30)
[2018-09-11] MEDS: Potassium Chloride 20 MEQ TABCR 40 MEQ PO (07:30)
[2018-09-11] MEDS: Ferrous Gluconate 324 MG TAB PO (07:30)
[2018-09-11] MEDS: Cyclobenzaprine 10 MG TAB PO (07:30)
[2018-09-11] MEDS: Levothyroxine 25 MCG TAB PO (07:30)
[2018-09-11] MEDS: Omeprazole 20 MG CAPCR PO (07:30)
[2018-09-11] MEDS: Levothyroxine 200 MCG TAB PO (07:30)
[2018-09-11 07:44] LABS: Anion Gap 10.2 mmol/L (3-11); BUN 11 mg/dL (7-18); CO2 23.8 mmol/L (21.0-32.0); CREATININE 0.81 mg/dL (0.70-1.30); Calcium 8.9 mg/dL (8.5-10.1); Chloride 110 mmol/L (98-107); Glucose 98 mg/dL (70-100); Magnesium 2.3 mg/dL (1.8-2.4); Potassium 3.8 mmol/L (3.5-5.1); Sodium 144 mmol/L (136-145)
[2018-09-11 07:45] VITALS: BP 112/73; PULSE 76; RESP 18; TEMP 36.1; O2SAT 96
[2018-09-11] MEDS: DOXYCYCLINE 100 MG in Normal Saline 100 ML IVPB (09:55)
--- NOTE | 2018-09-11 10:57 | CMDISCH_ITS ---
- If Service Date Differs Date of service: 09/11/18 Time of Service: 10:55 LACE Index Scoring Tool - Questions: Length of Stay (in days): 2 Acuity (Admit via E.D.?): Yes Comorbidities: Cerebrovascular Disease, Diabetes w/o Complication, Any Tumor E.D. Visits: 2 - Answers: Total Score: 12 Risk of Readmission: High Risk Care Management Discharge Reason for Hospitalization: Fever, Hypopituitarism, AMS Discharge Plan: Miguel Angel will return home with / caregiver support through [facility]. He will F/U with PCP and plan of care as prescribed. His caregiver will transport when ready.
--- NOTE | 2018-09-11 11:15 | DSE_ITS ---
Date of service: 09/11/18 Time of Service: 11:01 DS: Diagnosis Discharge Diagnosis (1) Aspiration pneumonia: Status: Acute (2) Panhypopituitarism: Status: Acute (3) GERD (gastroesophageal reflux disease): Status: Chronic (4) Seizures: Status: Acute (5) CVA (cerebral vascular accident): Status: Chronic (6) Leg cramps: Status: Acute (7) Insomnia: Status: Acute (8) Urinary retention: Status: Acute Discharge Plan Disposition Patient Disposition: HOME Condition: Improving Discharge Details Reason For Visit: FEVER, HYPOPITUITARISM, AMS Admit Date/Time: 09/09/18 16:24 Admit Provider: Ila Rosenthal Attending Provider: Ila Rosenthal Primary Care Provider: Lc Venegas Hospital Course Hospital Course: Mr. Burgos is a 28 year old man with a past medical history significant for history of brain tumor with surgery at age 14, which resulted in CVA (with residual left-sided weakness), and TBI, panhypopituitarism, DI, adrenal insufficiency, hypothyroidism, cortical blindness, and seizure disorder who lives in an apartment [place] the community with caregiver support through [facility], who presented to the ED on 09/09/18 with caregiver reports of fever, behavioral changes (increased agitation) and decreased urinary output. He was previously hospitalized for several months of 2018 at [facility] [place] having a seizure and sustaining a pelvic fracture that required repair. In the ED he was noted to have a temperature of 39. His electrolytes were normal, Lactate 1.5, his TSH was <0.01, free T4 normal, he had no leukocytosis, his UA was negative. His chest x-ray was a limited exam, however it did not show an acute pulmonary process. Repeat chest x-ray also negative. The ED attending contacted Endocrinology at [facility] who gave recommendations to admit the patient and increase his hyrocortisone dose and agreed with initiating antibiotics. He was admitted to the Med/surg floor, his hydrocortisone was increased to 60mg am and 20mg at noon and he was initiated on Zosyn and Doxycycline. His respiratory status improved. He remained afebrile. His hydrocortisone was tapered. He has a history of urinary retention, there was concern that this could be contributing to his fever. He was bladder scanned for post void residuals and found to be emptying his bladder appropriately. He was initially monitored on telemetry and found to be in normal sinus rhythm. A swallow evaluation was ordered, however, Speech was not able to preform an assessment on the patient as he was sleeping when she attempted. Of note, Miguel Angel has poor dentition, he had no obvious abscess, however, he will need follow up with a dentist for a full evaluation. He will be discharged home to complete a course of antibiotics. He is transitioned to oral doxy and augmentin. He will be scheduled to follow up with his PCP. His caregivers will arrange follow up with dentist. Home Meds and New Rx's Prescriptions: New doxycycline hyclate 100 mg tablet 100 mg PO BID Qty: 8 RF: 0 amoxicillin-pot clavulanate [Augmentin] 875-125 mg tablet 1 tab PO BID Qty: 8 RF: 0 hydrocortisone 10 mg tablet 10 mg PO BID Qty: 10 RF: 0 Continued trazodone 50 MG tablet 2 tab PO QPM RF: 0 omeprazole 40 MG capsule,delayed release(DR/EC) 1 cap PO DAILY RF: 0 zonisamide 100 MG capsule 1 cap PO QPM RF: 0 hydrocortisone [Cortef] 10 MG tablet 20 mg PO TID RF: 0 desmopressin 0.1 MG tablet 0.5 tab PO TID RF: 0 testosterone [AndroGel] 75 GM gel in metered-dose pump 3 applic Topical DAILY RF: 0 atorvastatin 40 mg Tablet 40 mg PO DAILY RF: 0 aspirin [Aspir-81] 81 mg Tablet,Delayed Release (Dr/Ec) 1 tab PO DAILY RF: 0 metoprolol tartrate 75 mg Tablet 1 tab PO DAILY RF: 0 cyclobenzaprine 10 mg Tablet 10 mg PO TID RF: 0 sennosides-docusate sodium [DOK Plus] 8.6-50 mg Tablet 1 tab PO QHS PRNRF: 0 quetiapine [Seroquel] 200 mg Tablet 200 mg PO PRN PRNRF: 0 desmopressin 0.1 mg Tablet 0.1 mg PO BID RF: 0 cholecalciferol (vitamin D3) [Vitamin D3] 1,000 unit Capsule 1,000 mg PO DAILY RF: 0 ferrous gluconate 324 mg (38 mg iron) Tablet 324 mg PO DAILY RF: 0 levothyroxine 200 mcg Capsule 200 mcg PO DAILY RF: 0 Discharge Instructions Instructions: Fever in Adults (GEN), Aspiration Pneumonia (DC), Hypopituitarism (DC) Additional Instructions: Take antibiotics until they are gone. Hyrdrocortisone: Take 40 mg tomorrow morning, and take 15 mg at noon. Resume usual dose the following morning (Wednesday 09/13). If Miguel Angel appears to be more weak, contact PCP, may need increased steroids longer. Supervised meals, if coughing or appears to aspirate- contact PCP, may need swallow evaluation. Follow up with PCP. Follow up with Dentist. Take care! Stand Alone Forms: Nursing Discharge Form Referrals: Subha Colon [NURSE PRACTITIONER] - 09/17/18 1:00 pm Activity:: Activity as Tolerated Equipment/Supplies:: No Equipment Needed Diet:: Supervised meals. Discharge Orders Discharge Orders: Discharge Order (Routine); Ordered 09/11/18 Ordered By: Jessika Slade Exam Narrative Exam Narrative: General: 28 year old male, lying comfortably in bed with his eyes closed, makes incoherent noises at times. He does not appear to be in acute distress. HEENT: scar across the top of his head from previous surgery, poor dentition, mucous membranes moist. Neck: supple, no JVD. Respiratory: Respirations even and unlabored. Lung sounds clear to auscultation throughout. Cardiovascular: Heart has regular rate and rhythm. Abdomen: +BS, soft, nontender. Extremities: no cyanosis, no pitting edema, faint pedal pulses. DS: Data Vitals/I&O Vitals and I&O: Vital Signs Temperature 36.1 C L 09/11/18 07:45 Temperature Source Tympanic 09/11/18 07:45 Pulse 76 09/11/18 07:45 Pulse Rhythm Irregular 09/11/18 00:24 Pulse 94 H 09/09/18 18:10 Respiratory Rate 18 09/11/18 07:45 Respiratory Effort 09/11/18 00:24 Respiratory Depth Normal 09/11/18 00:24 Respiratory Pattern Normal 09/11/18 00:24 Blood Pressure 112/73 09/11/18 07:45 Blood Pressure Mean 101 09/09/18 12:46 Blood Pressure Position Supine 09/09/18 12:46 Pulse Oximetry 96 09/11/18 07:45 Oxygen Delivery Method Room Air 09/11/18 07:45 Oxygen Flow Rate 0 09/11/18 07:45 Pain Level 0 09/10/18 19:10 Comment 09/10/18 02:50 Intake & Output 09/10/18 09/10/18 09/11/18 11:59 23:59 11:59 Intake Total 450 / 1012.917 562.917 / 1012.917 277.083 / 277.083 Output Total 450 / 1750 1300 / 1750 400 / 400 Balance 0 / -737.083 -737.083 / -737.083 -122.917 / -122.917 Weight 100 kg 100 kg 94.5 kg Intake: IV 200 / 522.917 322.917 / 522.917 277.083 / 277.083 Oral 250 / 490 240 / 490 Output: Urine 450 / 1750 1300 / 1750 400 / 400 Other: Urine Color Pale Pale Urine Appearance Clear Clear Clear Urine Odor Normal Stool Size Small Stool Characteristics Soft Voiding Methods Toilet Incontinent Completed studies during hospitalization [Text1]: 09/09/18: PORTABLE FRONTAL CHEST: Comparison 06/15/18. The study is limited due to poor inspiration and patient body habitus. The cardiac silhouette is within normal limits according to protocol. No definite focal consolidating infiltrates, effusions or pneumothoraces are identified. The bones appear intact. IMPRESSION: 1. Limited examination due to suboptimal lung volumes. 2. No acute pulmonary process. 09/10/18: AP AND LATERAL CHEST: Comparison is made with 09/09/18. The heart is normal in size. The lungs are clear. The mediastinal structures and pleura appear intact. CONCLUSION: Normal chest. Labs on day of discharge: Labs from last 24 hours 09/11/18 06:55 Sodium 144 Potassium 3.8 D Chloride 110 H Carbon Dioxide 23.8 Anion Gap 10.2 BUN 11 Creatinine 0.81 Estimated GFR/1.73 m2 >= 60.00 Glucose 98 Calcium 8.9 Magnesium 2.3 Preliminary micro results at discharge 09/09/18 13:52 Blood Culture - Preliminary Blood NO GROWTH 24 HOURS 09/09/18 13:45 Blood Culture - Preliminary Blood NO GROWTH 24 HOURS [facility] Medical History Urinary retention (Acute) Hx of fracture of pelvis (Acute) 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) Constipation (Acute) Leg cramps (Acute) Insomnia (Acute) GERD (gastroesophageal reflux disease) (Chronic) Seizures (Acute) CVA (cerebral vascular accident) (Chronic) TBI (traumatic brain injury) (Acute) History of brain tumor (Acute) Social History Smoking and Tabacco status: Never
[2018-09-11 11:45] VITALS: BP 148/81; PULSE 91; RESP 18; TEMP 36.3; O2SAT 100
--- NOTE | 2018-09-14 16:07 | PT.INDS ---
Date of service: 09/14/18 PT Notes Inpatient Physical Therapy Discharge Summary Dates: 09/14/2018 Dates of Service: 09/10/2018?09/11/2018 Referring Doctor: Jessika Slade PT Orders: PT CONSULT: Generalized weakness, history of TBI, CVA (left?sided weakness at baseline), cortical blindness Precautions: Fall. Standard. Cortical blindness. Patient Profile/Admitting Diagnosis: Patient is a 28-year-old male who was seen for fever, panhypopituitarism, shortness of breath. Caregiver Leann was present during the evaluation who state that patient has had significant mobility decline. PMHX: Urinary retention. Hx of fracture of pelvis. Panhypopituitarism. Diabetes insipidus. Cortical blindness . Constipation . Leg cramps. Insomnia. GERD Seizures. CVA (cerebral vascular accident). TBI (traumatic brain injury). History of brain tumor. Social History/Home Situation: Miguel Angel resides in an apartment in [facility] with 24/7 caregiver support through [facility]. He has a sister who does not reside locally and is his guardian. Elizabeth Holcomb is Miguel Angel's rn women services, and Genna Ortiz is his co-stars coordinator ([phone]). Miguel Angel resides in an apartment in [facility] with 24/7 caregiver support through [facility]. He has a sister whom does not reside locally and is his guardian. Elizabeth Holcomb is Miguel Angel's rn women services, and Genna Ortiz is his co-stars coordinator ([phone]). Equipment Owned/DME: FWW. Hospital bed. Wheelchair. This is a summary of care provided by the physical therapy team within the duration of services indicated above. Subjective: Patient is seen today for discharge evaluation lying down in his bed sleeping as he was given a depressant to manage agitation that started last noc. Caregiver Leann was agreeable to going over the HEP and requested that patient not be woken up as he had a rough night last night. Objective: General Observation: Patient sitting in chailying in bedr. IV line in left UE. Mental Status: Sleeping at time of discharge but Caregiver Leann states that patient is able to recognize her and case maker. Pain: Unable to test but caregiver reported no verbalization or physical expression of pain was observed. ROM: (per caregiver she observed no changes from measurements taken as of 09/10/2017) Right Upper Extremity: WFL Left Upper Extremity: WFL Right Lower Extremity: WFL Left Lower Extremity: Patient grimaced and moaned at end range of simultaneous hip flexion and knee flexion. Caregiver states that this has been the case since Miguel Angel's pelvic fracture in August of this year. Strength: (per caregiver she observed no changes from measurements taken as of 09/10/2017) Right Upper Extremity: WFL Left Upper Extremity: WFL Right Lower Extremity: Hip flexors 4-/5. Hip extensors 4/5. Hip flexors 4-/5. Ankle dorsiflexors 4+/5. Left Lower Extremity: Hip flexors 4-/5. Hip extensors 4/5. Hip flexors 4-/5. Ankle dorsiflexors 4+/5. Bed Mobility/Transfers: (per caregiver she observed no changes from measurements taken as of 09/10/2017) Supine to sit: Mod A, maximal verbal cueing needed due to cortical blindness and impaired safety awareness. Sit to supine: Mod A, maximal verbal cueing needed due to cortical blindness and impaired safety awareness. Sit to stand: Mod A, patient works well with bilateral handheld assist by caregiver or therapist. Patient has gotten used to pulling on caregiver's or therapist's stand to stand up. Stand to sit: Mod A, patient tends to fall up onto a chair and requires moderate cueing for a slower descent. Gait: NT today. Yesterday, patient tolerated about 30 feet of level surface ambulation with bilateral handheld assist and wheelchair followed by another. Full knee extension limited during mid stance. Dinora slow, step height and length reduced. Maximum verbal and tactile cueing required for directional changes and for overall safety due to cortical blindness. Balance: (per caregiver she observed no changes from measurements taken as of 09/10/2017) Static Sitting: Good Dynamic Sitting: Good Static Standing: Fair minus Dynamic Standing: Fair minus Special Tests: Mobility Limitations Standardized Measure [facility] AM-PAC 6 clicks Basic Mobility Inpatient Short Form: Raw Score: 14 CMS Score:61.29% deficit Informed Consent/Education: Patient instructed in purpose of PT consult and plan of care. Assessment: Patient is a 28-year-old year old male referred to physical therapy services with the diagnosis of aspiration pneumonia, panhypopituitarism and SOB. Patient presents with clinical signs and symptoms consistent with medical diagnosis resulting to functional mobility decline, as demonstrated by the following impairment level findings: 1. Impaired strength 2. Impaired balance 3. Reduce activity tolerance 4. Impaired safety awareness 5. Absent visual acuity due to cortical blindness 6. Developmental delay Impairments are contributing to the following functional limitations: 1. Increase dependence with bed mobility 2. Increase independence for transfer performance 3. Decreased tolerance for ambulation performance 4. Increase completion time for mobility ADL task performance Patient is assessed as a Moderate 11582 complexity based on the following: History: Patient is a 28-year-old medically complex patient with varied neurologic conditions that limit safety of mobility ADL performance. Patient requires 24/7 care due to impairments and functional deficits. Please see full medical history as noted above. Examination: Functional limitations as noted above Presentation: Evolving Decision Making: Moderate complexity Goals: Goals X1 week 1. Supine-Sit set up not met 2. Sit-Supine set up not met 3. Sit-Stand supervision not met 4. Stand-Sit supervision not met 5. Bed-Chair supervision not met 6. Chair-Bed supervision not met 7. Gait minimal assist not met 8. Caregivers will be independent with home exercise program assistance for the client MET 10. Balance good not met DISCHARGE RECOMMENDATIONS: Return to previous home setting with a 24/7 care with previous mobility equipment. May benefit from a short-term home health physical therapy skilled services in order to continue with appropriate caregiver education and training, home safety evaluation, and fall reduction strategies TREATMENT CODE/TIME: 26438 25 minutes beginning at 11:10 AM. Thank you for this referral. Pamela Phillips, PT, DPT, CLT [facility] DISCLAIMER: This document was created using [employer] Voice Recognition Software. It was reviewed for major content. However, there may be multiple small discrepancies and errors due to the voice recognition aspects of the software.
--- NOTE | 2018-09-14 16:21 | INDS_ITS ---
Date of service: 09/14/18 PT Notes Inpatient Physical Therapy Discharge Summary Dates: 09/14/2018 Dates of Service: 09/10/2018?09/11/2018 Referring Doctor: Jessika Slade PT Orders: PT CONSULT: Generalized weakness, history of TBI, CVA (left?sided weakness at baseline), cortical blindness Precautions: Fall. Standard. Cortical blindness. Patient Profile/Admitting Diagnosis: Patient is a 28-year-old male who was seen for fever, panhypopituitarism, shortness of breath. Caregiver Leann was present during the evaluation who state that patient has had significant mobility decline. PMHX: Urinary retention. Hx of fracture of pelvis. Panhypopituitarism. Diabetes insipidus. Cortical blindness . Constipation . Leg cramps. Insomnia. GERD Seizures. CVA (cerebral vascular accident). TBI (traumatic brain injury). History of brain tumor. Social History/Home Situation: Miguel Angel resides in an apartment in [facility] with 24/7 caregiver support through [facility]. He has a sister who does not reside locally and is his guardian. Elizabeth Holcomb is Miguel Angel's flight attendant inflight services, and Genna Ortiz is his co-community service coordinator ([phone]). Miguel Angel resides in an apartment in [facility] with 24/7 caregiver support through [facility]. He has a sister whom does not reside locally and is his guardian. Elizabeth Hoclomb is Miguel Angel's flight attendant inflight services, and Genna Ortiz is his co-community service coordinator ([phone]). Equipment Owned/DME: FWW. Hospital bed. Wheelchair. This is a summary of care provided by the physical therapy team within the duration of services indicated above. Subjective: Patient is seen today for discharge evaluation lying down in his bed sleeping as he was given a depressant to manage agitation that started last noc. Caregiver Leann was agreeable to going over the HEP and requested that patient not be woken up as he had a rough night last night. Objective: General Observation: Patient sitting in chailying in bedr. IV line in left UE. Mental Status: Sleeping at time of discharge but Caregiver Leann states that patient is able to recognize her and renal case manager. Pain: Unable to test but caregiver reported no verbalization or physical expression of pain was observed. ROM: (per caregiver she observed no changes from measurements taken as of 09/10/2017) Right Upper Extremity: WFL Left Upper Extremity: WFL Right Lower Extremity: WFL Left Lower Extremity: Patient grimaced and moaned at end range of simultaneous hip flexion and knee flexion. Caregiver states that this has been the case since Miguel Angel's pelvic fracture in August of this year. Strength: (per caregiver she observed no changes from measurements taken as of 09/10/2017) Right Upper Extremity: WFL Left Upper Extremity: WFL Right Lower Extremity: Hip flexors 4-/5. Hip extensors 4/5. Hip flexors 4-/5. Ankle dorsiflexors 4+/5. Left Lower Extremity: Hip flexors 4-/5. Hip extensors 4/5. Hip flexors 4-/5. Ankle dorsiflexors 4+/5. Bed Mobility/Transfers: (per caregiver she observed no changes from measurements taken as of 09/10/2017) Supine to sit: Mod A, maximal verbal cueing needed due to cortical blindness and impaired safety awareness. Sit to supine: Mod A, maximal verbal cueing needed due to cortical blindness and impaired safety awareness. Sit to stand: Mod A, patient works well with bilateral handheld assist by caregiver or therapist. Patient has gotten used to pulling on caregiver's or therapist's stand to stand up. Stand to sit: Mod A, patient tends to fall up onto a chair and requires moderate cueing for a slower descent. Gait: NT today. Yesterday, patient tolerated about 30 feet of level surface ambulation with bilateral handheld assist and wheelchair followed by another. Full knee extension limited during mid stance. Dinora slow, step height and length reduced. Maximum verbal and tactile cueing required for directional changes and for overall safety due to cortical blindness. Balance: (per caregiver she observed no changes from measurements taken as of 09/10/2017) Static Sitting: Good Dynamic Sitting: Good Static Standing: Fair minus Dynamic Standing: Fair minus Special Tests: Mobility Limitations Standardized Measure [employer] AM-PAC 6 clicks Basic Mobility Inpatient Short Form: Raw Score: 14 CMS Score:61.29% deficit Informed Consent/Education: Patient instructed in purpose of PT consult and plan of care. Assessment: Patient is a 28-year-old year old male referred to physical therapy services with the diagnosis of aspiration pneumonia, panhypopituitarism and SOB. Patient presents with clinical signs and symptoms consistent with medical diagnosis resulting to functional mobility decline, as demonstrated by the following impairment level findings: 1. Impaired strength 2. Impaired balance 3. Reduce activity tolerance 4. Impaired safety awareness 5. Absent visual acuity due to cortical blindness 6. Developmental delay Impairments are contributing to the following functional limitations: 1. Increase dependence with bed mobility 2. Increase independence for transfer performance 3. Decreased tolerance for ambulation performance 4. Increase completion time for mobility ADL task performance Patient is assessed as a Moderate 57332 complexity based on the following: History: Patient is a 28-year-old medically complex patient with varied neurologic conditions that limit safety of mobility ADL performance. Patient requires 24/7 care due to impairments and functional deficits. Please see full medical history as noted above. Examination: Functional limitations as noted above Presentation: Evolving Decision Making: Moderate complexity Goals: Goals X1 week 1. Supine-Sit set up not met 2. Sit-Supine set up not met 3. Sit-Stand supervision not met 4. Stand-Sit supervision not met 5. Bed-Chair supervision not met 6. Chair-Bed supervision not met 7. Gait minimal assist not met 8. Caregivers will be independent with home exercise program assistance for the client MET 10. Balance good not met DISCHARGE RECOMMENDATIONS: Return to previous home setting with a 24/7 care with previous mobility equipment. May benefit from a short-term home health physical therapy skilled services in order to continue with appropriate caregiver education and training, home safety evaluation, and fall reduction strategies TREATMENT CODE/TIME: 14424 25 minutes beginning at 11:10 AM. Thank you for this referral. Pamela Phillips, PT, DPT, CLT [facility] DISCLAIMER: This document was created using [employer] Voice Recognition Software. It was reviewed for major content. However, there may be multiple small discrepancies and errors due to the voice recognition aspects of the software.
== END 2018-09-11 13:05 | disposition home or self-care (01) ==
LOC: ER 17:57 → MS 09-10 08:38
PROVIDERS: Nurse Practitioner; Admitting Provider Internal Medicine; Emergency Provider Student in an Organized Health Care Education/Training Program; PCP Specialist/Technologist Athletic Trainer; Visit Provider Internal Medicine
DX: J69.0 Pneumonitis due to inhalation of food and vomit (principal); E23.0 Hypopituitarism; K21.9 Gastro-esophageal reflux disease without esophagitis; R25.2 Cramp and spasm; G47.00 Insomnia, unspecified; R33.9 Retention of urine, unspecified; I69.354 Hemiplegia and hemiparesis following cerebral infarction affecting left non-dominant side; G40.909 Epilepsy, unspecified, not intractable, without status epilepticus; H47.619 Cortical blindness, unspecified side of brain
CPT/HCPCS: 36415; 80048; 80053; 87040; 87449; 93005; 96361; 96365; 96368; 96372; 96375; 97162; 97530; 99219; 99232; 99239; 99285; J1650; 71045; 71046; 81003; 83605; 83735; 84439; 84443; 85025; 93010; 99217; 99225; G0378; J1720; J2060; J2250; J2543; J3490

== ENCOUNTER 2018-10-02 13:19 | Outpatient (REF) | payer MEDICAID, SELFPAY ==
[2018-10-02 13:47] LABS: HCT 44.4 % (40.0-50.0); Mean Corp. HGB Concentration 31.5 g/dL (32.0-36.0); Mean Corpuscular Hemoglobin 24.1 pg (27.0-33.0); Mean Corpuscular Volume 76.3 fL (80-95); Mean Platelet Volume 10.1 fL (8.0-11.0); Platelet Count 240 x1000/uL (130-400); RBC 5.82 m/cumm (4.50-6.00); RBC Distribution Width 17.9 % (11.8-14.1); White Blood Cell Count 5.02 k/cumm (4.4-10.8)
[2018-10-02 13:54] LABS: Sodium 145 mmol/L (136-145)
[2018-10-02 14:44] LABS: Absolute Eosinophil Count 0.25 k/cumm (0.0-0.7); Absolute Lymphocyte Count 1.91 k/cumm (1.2-3.4); Absolute Monocyte Count 0.45 k/cumm (0.11-0.7); Absolute Neutrophil Count 2.36 k/cumm (1.2-6.7); Atypical Lymphocytes % 3
[2018-10-02 14:45] LABS: Diff Comment Diff Reviewed; Hypochromasia 1+; Microcytosis 2+
== END 2018-10-02 13:39 ==
LOC: NCHCN 13:19
PROVIDERS: PCP Nurse Practitioner Family; Visit Provider Family Medicine
DX: E23.0 Hypopituitarism (principal)
CPT/HCPCS: 84295; 85025

== ENCOUNTER 2018-12-30 10:47 | Outpatient (CLI) | payer MEDICAID, SELFPAY | END 2018-12-30 11:07 | PROVIDERS: PCP Nurse Practitioner Family; Visit Provider Specialist/Technologist Athletic Trainer | DX: R69 Illness, unspecified (principal) | CPT/HCPCS: 36415; 86706; 86709; 86803; 87389 ==

== ENCOUNTER 2019-03-04 00:58 | Outpatient (CLI) | payer MEDICAID, SELFPAY ==
[2019-03-04 14:12] LABS: Anion Gap 10.1 mmol/L (3-11); CO2 27.9 mmol/L (21.0-32.0); Chloride 106 mmol/L (98-107); Potassium 3.9 mmol/L (3.5-5.1); Sodium 144 mmol/L (136-145)
== END 2019-03-04 01:18 ==
PROVIDERS: PCP Nurse Practitioner Family; Visit Provider Internal Medicine Endocrinology, Diabetes & Metabolism
DX: E23.0 Hypopituitarism (principal); E27.49 Other adrenocortical insufficiency; D44.4 Neoplasm of uncertain behavior of craniopharyngeal duct; E23.2 Diabetes insipidus
CPT/HCPCS: 36415; 80051

== ENCOUNTER 2019-03-21 11:55 | Observation (INO) | payer MEDICAID, SELFPAY ==
[2019-03-21 12:07] VITALS: BP 127/78; PULSE 54; RESP 14; TEMP 36.6; O2SAT 99
--- NOTE | 2019-03-21 12:14 | DI.RAD_ITS ---
SYMPTOM/DIAGNOSIS: ALTERED MENTATION AP AND LATERAL SEMI ERECT CHEST: The lungs are poorly expanded. No gross infiltrate is identified. There is no evidence of a pleural effusion. The heart is within normal limits in size. SUMMARY: No definite evidence of acute cardiopulmonary disease.
--- NOTE | 2019-03-21 12:14 | DI.CT_ITS ---
SYMPTOM/DIAGNOSIS: ALTERED MENTATION NONCONTRAST HEAD CT: A prior right frontal craniotomy is demonstrated. The procedure carried out for right sided aneurysmal clipping. Encephalomalacia in the right frontal lobe is demonstrated. There is no evidence of an intra/extra-axial hemorrhage or mass. There is no skull fracture. SUMMARY: No acute intracranial abnormality is demonstrated.
[2019-03-21 12:30] LABS: Abs Immature Grans 0.02 k/cumm (0.0-0.09); Absolute Basophil Count 0.02 k/cumm (0.0-0.2); Absolute Eosinophil Count 0.16 k/cumm (0.0-0.7); Absolute Lymphocyte Count 1.89 k/cumm (1.2-3.4); Absolute Monocyte Count 0.47 k/cumm (0.11-0.7); Absolute Neutrophil Count 2.32 k/cumm (1.2-6.7); Basophils % 0.4; Eosinophils % 3.3; HCT 44.7 % (40.0-50.0); HGB 14.6 g/dL (13.5-17.5); Immature Grans % 0.4; Lymphocytes % 38.7; Mean Corp. HGB Concentration 32.7 g/dL (32.0-36.0); Mean Corpuscular Volume 79.5 fL (80-95); Mean Platelet Volume 10.3 fL (8.0-11.0); Monocytes % 9.6; Neutrophils % 47.6; Platelet Count 223 x1000/uL (130-400); RBC 5.62 m/cumm (4.50-6.00); RBC Distribution Width 14.9 % (11.8-14.1); White Blood Cell Count 4.88 k/cumm (4.4-10.8)
[2019-03-21 12:34] VITALS: RESP 16
--- NOTE | 2019-03-21 12:38 | NUR.NOTE ---
care takers at bedside with pt seizure precautions in place Nursing Note:
--- NOTE | 2019-03-21 12:48 | NUR.NOTE ---
pt tiagot cathed for urine Nursing Note:
[2019-03-21 12:49] LABS: ALT 100 U/L (16-63); AST 29 U/L (15-37); Albumin 4.2 g/dL (3.4-5.0); Alkaline Phosphatase 170 U/L (46-116); Anion Gap 10.2 mmol/L (3-11); BUN 11 mg/dL (7-18); Bilirubin, Total 0.3 mg/dL (0.2-1.0); CO2 27.8 mmol/L (21.0-32.0); CREATININE 0.83 mg/dL (0.70-1.30); Chloride 103 mmol/L (98-107); Glucose 115 mg/dL (70-100); Magnesium 1.8 mg/dL (1.8-2.4); Potassium 3.3 mmol/L (3.5-5.1); Sodium 141 mmol/L (136-145)
[2019-03-21 12:50] LABS: TSH (W/Ref FT4) < 0.01 uIU/mL (0.36-3.74)
[2019-03-21 13:00] LABS: Bilirubin Negative (Negative); Blood Negative (Negative); Clarity Clear (Clear); Glucose Negative (Negative); Ketones Negative (Negative); Leukocyte Esterase Negative (Negative); Nitrite Negative (Negative); Specific Gravity 1.015 (1.005-1.025); Urobilinogen 0.2 EU/dL (Up TO 0.2); pH 6.5 (5-8)
[2019-03-21 13:06] LABS: FREE T4 1.04 ng/dL (0.76-1.46)
[2019-03-21 13:16] LABS: *AMPHETAMINES SCREEN URINE Negative (Negative); *BARBITURATES SCREEN URINE Negative (Negative); *BENZODIAZEPINES SCREEN URINE Negative (Negative); Cannabinoids THC POSITIVE (Negative); Cocaine Screen,Urine Negative (Negative); METHADONE URINE SCREEN Negative (Negative); OPIATES URINE SCREEN Negative (Negative); Tricyclic Antidepressants Negative (Negative)
--- NOTE | 2019-03-21 13:20 | DI.VRAD_ITS ---
EXAM: CT Head Without Contrast EXAM DATE/TIME: 03/21/2019 12:16 PM CLINICAL HISTORY: 28 years old, male; Altered mental status/memory loss; Patient HX: PT has limited function, limited ability to follow directions, best images possible TECHNIQUE: Imaging protocol: Computed tomography of the head without contrast. COMPARISON: No relevant prior studies available. FINDINGS: Prior right temporal craniotomy. Prior right-sided aneurysm clipping. Encephalomalacia in the right frontal lobe. No evidence of hemorrhage. No mass effect. No acute intracranial abnormality. IMPRESSION: No evidence of acute intracranial process. Dictated and Authenticated by: Tee De La Cruz MD. Ordering:CHANO Jimenez MD
--- NOTE | 2019-03-21 13:21 | DI.VRAD_ITS ---
EXAM: XR Chest, 2 Views EXAM DATE/TIME: 03/21/2019 12:16 PM CLINICAL HISTORY: 28 years old, male; Other: Altered mental status; Additional info: PT has limited function, limited ability to follow directions, best images possible TECHNIQUE: Imaging protocol: XR of the chest Views: 2 views. COMPARISON: CR XR CHEST 2V PA LATERAL 09/10/2018 3:28 PM FINDINGS: Somewhat low lung volumes. No definite focal consolidation. Costophrenic angle sharp. No significant cardiomegaly for technique. IMPRESSION: No definite evidence of acute cardiopulmonary disease. Dictated and Authenticated by: Tee De La Cruz MD. Ordering:CHANO Jimenez MD
--- NOTE | 2019-03-21 13:31 | ED.GENADUL_ITS ---
Discharge Plan Disposition Patient Disposition: HOME Condition: Improving Discharge Details Chief Complaint: AMS/LOC Clinical Impression: Altered mental status Primary Care Provider: Subha Colon ED Provider: Tony Macias Home Meds and New Rx's Prescriptions: No Action trazodone 50 MG tablet 4 tab PO QPM RF: 0 omeprazole 40 MG capsule,delayed release(DR/EC) 1 cap PO DAILY RF: 0 zonisamide 100 MG capsule 2 cap PO QPM RF: 0 hydrocortisone [Cortef] 10 MG tablet 20 mg PO QAM RF: 0 desmopressin 0.1 MG tablet 0.15 tab PO QNOON RF: 0 testosterone [AndroGel] 75 GM gel in metered-dose pump 3 applic Topical QAM RF: 0 atorvastatin 40 mg Tablet 40 mg PO DAILY RF: 0 aspirin [Aspir-81] 81 mg Tablet,Delayed Release (Dr/Ec) 1 tab PO DAILY RF: 0 metoprolol tartrate 75 mg Tablet 1 tab PO DAILY RF: 0 cyclobenzaprine 10 mg Tablet 20 mg PO TID RF: 0 sennosides-docusate sodium [DOK Plus] 8.6-50 mg Tablet 1 tab PO QHS PRNRF: 0 quetiapine [Seroquel] 200 mg Tablet 200 mg PO PRN PRNRF: 0 desmopressin 0.1 mg Tablet 0.1 mg PO QAM RF: 0 cholecalciferol (vitamin D3) [Vitamin D3] 1,000 unit Capsule 1,000 mg PO DAILY RF: 0 ferrous gluconate 324 mg (38 mg iron) Tablet 324 mg PO DAILY RF: 0 levothyroxine 200 mcg Capsule 225 mcg PO DAILY RF: 0 sennosides-docusate sodium [DOK Plus] 8.6-50 mg Tablet 1 tab PO BID RF: 0 hydrocortisone 10 mg tablet 10 mg PO QNOON RF: 0 Medical Decision Making 13:35 --28-year-old male with history of prior brain tumor status post resection and resultant CVA with residual left-sided weakness, seizure disorder, adrenal insufficiency, lives in half-way with caretakers, here with altered mental status since waking this morning around 9 AM. Patient is lethargic and difficult to arouse. He is maintaining and protecting his airway. He does become more responsive with verbal stimuli and is able to follow some commands. Labs reviewed and normal sodium. No leukocytosis. Mild hypokalemia with potassium of 3.3. Urinalysis is not consistent with UTI. Chest x-ray was reviewed and interpreted by radiology: No definite evidence of acute cardiopulmonary disease. Consider CVA vs intracranial hemorrhage. CT of the head was reviewed and interpreted by radiology: No evidence of acute intracranial process. Unclear etiology for altered mental status.Patient is afebrile, denies pain. No history of trauma. Possible seizure and prolonged postictal state. Labs reviewed and urinalysis is concerning for positive THC. Caretakers state that he is not on THC containing therapy and does not know how this could be in his system. Had he been provided a THC-containing substance, this certainly could result in altered mental status. Meningitis/encephalitis is unlikely given no fever, no leukocytosis, no nuchal rigidity, and no pain. Plan to admit for further diagnostic work-up, monitoring and treatment. -- Patient reassessed and much more alert, eating, more conversant, still not at baseline but much better per family. Spoke with Dr. Lujan (neuro) discussed ED presentation and course and agree with admission, consider MRI tomorrow if no improvemnt. Spoke with Dr. Connolly who will admit. Care transitioned to Dr. Connolly at time of admission. HPI General Mode of arrival: ambulatory . Date/Time Provider Initiated Documentation: 03/21/19 12:12 . Limitations to Documentation: no limitations . Information obtained by: patient . HPI Narrative: 28-year-old male with multiple medical problems including history of traumatic brain injury, brain mass status post resection remotely, resultant CVA with residual left-sided weakness, seizure disorder, adrenal insufficiency, diabetes, lives in half-way, here today with altered mental status. Apparently upon waking today he is been difficult to arouse. Caretakers note that this is atypical for him. Yesterday they noted that he seemed a bit more tired than usual. No recent trauma, no recent fevers, no recent complaint of any pain. Related Data Home Medications Medication Instructions Recorded Confirmed desmopressin 0.15 tab PO QNOON 12/29/15 03/21/19 hydrocortisone [Cortef] 20 mg PO QAM 12/29/15 03/21/19 omeprazole 1 cap PO DAILY 12/29/15 03/21/19 testosterone [AndroGel] 3 applic TOPICAL QAM 12/29/15 03/21/19 trazodone 4 tab PO QPM 12/29/15 03/21/19 zonisamide 2 cap PO QPM 12/29/15 03/21/19 aspirin [Aspir-81] 1 tab PO DAILY 05/08/18 03/21/19 atorvastatin 40 mg PO DAILY 05/08/18 03/21/19 metoprolol tartrate 1 tab PO DAILY 05/08/18 03/21/19 cholecalciferol (vitamin D3) 1,000 mg PO DAILY 09/09/18 03/21/19 [Vitamin D3] cyclobenzaprine 20 mg PO TID 09/09/18 03/21/19 desmopressin 0.1 mg PO QAM 09/09/18 03/21/19 ferrous gluconate 324 mg PO DAILY 09/09/18 03/21/19 levothyroxine 225 mcg PO DAILY 09/09/18 03/21/19 quetiapine [Seroquel] 200 mg PO PRN PRN 09/09/18 03/21/19 sennosides-docusate sodium [DOK 1 tab PO QHS PRN 09/09/18 03/21/19 Plus] hydrocortisone 10 mg PO QNOON 03/21/19 03/21/19 sennosides-docusate sodium [DOK 1 tab PO BID 03/21/19 03/21/19 Plus] Allergies Allergy/AdvReac Type Severity Reaction Status Date / Time gemfibrozil [From Lopid] AdvReac Unknown Unverified 09/09/18 13:38 General Stated Complaint: AMS/LOC KWASI: 2 Review of Systems Review of Systems ROS Unobtainable: Unobtainable due to mental status [facility] Medical History Constipation (Acute) Cortical blindness (Acute) CVA (cerebral vascular accident) (Chronic) Diabetes insipidus (Acute) GERD (gastroesophageal reflux disease) (Chronic) History of brain tumor (Acute) Hx of fracture of pelvis (Acute) Insomnia (Acute) Leg cramps (Acute) 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Acute) Seizures (Acute) TBI (traumatic brain injury) (Acute) Urinary retention (Acute) Social History Smoking/Tobacco Use Status: Never Alcohol Intake: current Alcohol type: other Drug use: Never Substance use type: does not use Do you feel safe at home: Yes Do you feel safe in your relationship?: Yes Exam Const General: no acute distress and lethargic Orientation: obtunded [facility] Head: normocephalic and atraumatic Mouth: moist mucous membranes Eyes Conjunctivae: normal conjunctivae Sclera: normal sclerae Pupils: PERRL (4mm) Neck Neck: trachea midline and supple Resp Auscultation: clear to auscultation bilaterally, no rales, no rhonchi and no wheezes Cardio Jugular venous pressure: no JVD Rate: regular rate and not tachycardic Rhythm: regular rhythm GI Palpation: soft, not firm, no guarding, no masses, not rigid and nontender Skin General skin exam: no rashes or lesions noted Neuro General: tone normal and other (gives thumbs up left hand on verbal command) Cognition: abnormal cognition Extrem General: no edema Psych Appearance: grossly normal Course Vital Signs Vital signs: Vital Signs Temperature 36.6 C 03/21/19 12:07 Pulse 54 L 03/21/19 12:07 Respiratory Rate 14 03/21/19 12:07 Blood Pressure 127/78 03/21/19 12:07 Temperature 36.6 C 03/21/19 12:07 Pulse 54 L 03/21/19 12:07 Respiratory Rate 16 03/21/19 12:34 Respiratory Effort Non-Labored 03/21/19 12:34 Respiratory Depth Normal 03/21/19 12:34 Respiratory Pattern Normal 03/21/19 12:34 Blood Pressure 127/78 03/21/19 12:07 Oxygen Delivery Method Nasal Cannula 03/21/19 12:07 Oxygen Flow Rate 0 03/21/19 12:07 Pain Level 0 03/21/19 12:07 Lab/Test Results Lab/Test Results: Laboratory Tests Range/Units 03/21/19 03/21/19 03/21/19 12:10 12:10 12:17 WBC (4.4-10.8) k/cumm RBC (4.50-6.00) m/cumm Hgb (13.5-17.5) g/dL Hct (40.0-50.0) % MCV (80-95) fL MCH (27.0-33.0) pg MCHC (32.0-36.0) g/dL RDW (11.8-14.1) % Plt Count (130-400) x1000/uL MPV (8.0-11.0) fL Immature Gran % Neutrophils % Lymphocytes % Monocytes % Eosinophils % Basophils % Absolute Neutrophils (1.2-6.7) k/cumm Absolute Lymphocytes (1.2-3.4) k/cumm Absolute Monocytes (0.11-0.7) k/cumm Absolute Eosinophils (0.0-0.7) k/cumm Absolute Basophils (0.0-0.2) k/cumm Sodium (136-145) mmol/L 141 Potassium (3.5-5.1) mmol/L 3.3 L Chloride (98-107) mmol/L 103 Carbon Dioxide (21.0-32.0) mmol/L 27.8 Anion Gap (3-11) mmol/L 10.2 BUN (7-18) mg/dL 11 Creatinine (0.70-1.30) mg/dL 0.83 Estimated GFR/1.73 m2 (mL/min/1.73m2) >= 60.00 Glucose (70-100) mg/dL 115 H Calcium (8.5-10.1) mg/dL 9.0 Magnesium (1.8-2.4) mg/dL 1.8 Total Bilirubin (0.2-1.0) mg/dL 0.3 AST (15-37) U/L 29 ALT (16-63) U/L 100 H Alkaline Phosphatase (46-116) U/L 170 H Total Protein (6.4-8.2) g/dL 8.0 Albumin (3.4-5.0) g/dL 4.2 TSH (0.36-3.74) uIU/mL < 0.01 L Free T4 (0.76-1.46) ng/dL 1.04 Urine Color (Yellow) Yellow Urine Clarity (Clear) Clear Urine pH (5-8) 6.5 Ur Specific [place] (1.005-1.025) 1.015 Urine Protein (Negative) mg/dL Negative Urine Ketones (Negative) mg/dL Negative Urine Blood (Negative) Negative Urine Nitrite (Negative) Negative Urine Bilirubin (Negative) Negative Urine Urobilinogen (Up TO 0.2) EU/dL 0.2 Ur Leukocyte Esterase (Negative) Negative Urine Glucose (Negative) mg/dL Negative Urine Opiates Screen (Negative) Negative Urine Methadone Screen (Negative) Negative Ur Barbiturates Screen (Negative) Negative Ur Tricyclics Screen (Negative) Negative Ur Amphetamines Screen (Negative) Negative U Benzodiazepines Scrn (Negative) Negative Urine Cocaine Screen (Negative) Negative Ur THC Screen (Negative) Positive Range/Units 03/21/19 12:17 WBC (4.4-10.8) k/cumm 4.88 RBC (4.50-6.00) m/cumm 5.62 Hgb (13.5-17.5) g/dL 14.6 Hct (40.0-50.0) % 44.7 MCV (80-95) fL 79.5 L MCH (27.0-33.0) pg 26.0 L MCHC (32.0-36.0) g/dL 32.7 RDW (11.8-14.1) % 14.9 H Plt Count (130-400) x1000/uL 223 MPV (8.0-11.0) fL 10.3 Immature Gran % 0.4 Neutrophils % 47.6 Lymphocytes % 38.7 Monocytes % 9.6 Eosinophils % 3.3 Basophils % 0.4 Absolute Neutrophils (1.2-6.7) k/cumm 2.32 Absolute Lymphocytes (1.2-3.4) k/cumm 1.89 Absolute Monocytes (0.11-0.7) k/cumm 0.47 Absolute Eosinophils (0.0-0.7) k/cumm 0.16 Absolute Basophils (0.0-0.2) k/cumm 0.02 Sodium (136-145) mmol/L Potassium (3.5-5.1) mmol/L Chloride (98-107) mmol/L Carbon Dioxide (21.0-32.0) mmol/L Anion Gap (3-11) mmol/L BUN (7-18) mg/dL Creatinine (0.70-1.30) mg/dL Estimated GFR/1.73 m2 (mL/min/1.73m2) Glucose (70-100) mg/dL Calcium (8.5-10.1) mg/dL Magnesium (1.8-2.4) mg/dL Total Bilirubin (0.2-1.0) mg/dL AST (15-37) U/L ALT (16-63) U/L Alkaline Phosphatase (46-116) U/L Total Protein (6.4-8.2) g/dL Albumin (3.4-5.0) g/dL TSH (0.36-3.74) uIU/mL Free T4 (0.76-1.46) ng/dL Urine Color (Yellow) Urine Clarity (Clear) Urine pH (5-8) Ur Specific [place] (1.005-1.025) Urine Protein (Negative) mg/dL Urine Ketones (Negative) mg/dL Urine Blood (Negative) Urine Nitrite (Negative) Urine Bilirubin (Negative) Urine Urobilinogen (Up TO 0.2) EU/dL Ur Leukocyte Esterase (Negative) Urine Glucose (Negative) mg/dL Urine Opiates Screen (Negative) Urine Methadone Screen (Negative) Ur Barbiturates Screen (Negative) Ur Tricyclics Screen (Negative) Ur Amphetamines Screen (Negative) U Benzodiazepines Scrn (Negative) Urine Cocaine Screen (Negative) Ur THC Screen (Negative)
[2019-03-21 13:55] VITALS: BP 124/75; PULSE 61; RESP 16; O2SAT 98
--- NOTE | 2019-03-21 14:28 | NUR.NOTE ---
pt resting in bed family at bedside no distress noted resp even unlabored Nursing Note:
--- NOTE | 2019-03-21 15:33 | HPE_ITS ---
Date of service: 03/21/19 Time of Service: 15:47 Assessment and Plan Assessment and plan (1) Altered mental status: Status: Acute Assessment and plan: Unsure of exact etiology, but unexpected findings of THC in Urine Drug Screen - ingestion of a THC containing substance could certainly explain his symptoms. - Currently non-focal, and with CT of the head showing lack of acute findings. Consider MRI brain and neuro consult if not improving by the morning. - Electrolytes, including sodium, are essentially normal. Thyroid appears appropriately replaced. No evidence of renal dysfunction/LILY. Chronically elevated ALT - unchanged. - No evidence of infection with a normal urinalysis, CXR, WBC, and temperature. No evidence of nuchal rigidity by exam. Doubt infection as cause. Plan will be to admit patient under observation status, and monitor closely overnight. Given Panhypopituitarism history, including adrenal insufficiency, will ensure stress dosed steroids incase patient is acutely ill and not currently manifesting. If etiology is acute THC intoxication, patient should improve by the morning. (2) DVT prophylaxis: Status: Acute Assessment and plan: SC Lovenox. History of Present Illness History of Present Illness Chief Complaint: Altered Mental Status Narrative: 28 year old patient with a prior history of Panhypopituitarism following a remote tumor resection, being admitted from [facility] Emergency Department on 03/21 secondary to an altered mental status. Mr. 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 Other history includes chronic leg cramps, Urinary retention, and GERD. The patient lives in a long term with caretakers, and was brought in this morning as he appeared more lethargic and difficult to arouse. His Caregivers report that he has appeared this way in the past in the setting of illness. Work-up in the ED was remarkable for essentially normal labs, significantly with a normal sodium and white blood count, TSH, and urinalysis. He is afebrile, not tachycardic, not hypoxic, and normotensive. Imaging with CT of the head and CXR were negative for any acute findings. Interestingly his UDS returned positive for THC, which was surprising and unexpected to the caregivers. The patient was also found to respond to verbal and tactile stimuli and follow commands, and his mental status improved prior to admission. At time of visit he was awake briefly and eating potato chips. He was referred for admission for overnight observation to ensure lack of other significant pathology. Review of Systems Review of Systems ROS Unobtainable: Unobtainable due to mental condition [facility] Medical History Constipation (Acute) Cortical blindness (Acute) CVA (cerebral vascular accident) (Chronic) Diabetes insipidus (Acute) GERD (gastroesophageal reflux disease) (Chronic) History of brain tumor (Acute) Hx of fracture of pelvis (Acute) Insomnia (Acute) Leg cramps (Acute) 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Acute) Seizures (Acute) TBI (traumatic brain injury) (Acute) Urinary retention (Acute) Social History Smoking/Tobacco Use Status: Never Alcohol Intake: current Alcohol type: other Drug use: Never Substance use type: does not use Do you feel safe at home: Yes Do you feel safe in your relationship?: Yes Meds Home Medications and Allergies Home Medications Medication Instructions Recorded Confirmed Type desmopressin 0.15 tab PO QNOON 12/29/15 03/21/19 History hydrocortisone [Cortef] 20 mg PO QAM 12/29/15 03/21/19 History omeprazole 1 cap PO DAILY 12/29/15 03/21/19 History testosterone [AndroGel] 3 applic TOPICAL QAM 12/29/15 03/21/19 History trazodone 4 tab PO QPM 12/29/15 03/21/19 History zonisamide 2 cap PO QPM 12/29/15 03/21/19 History aspirin [Aspir-81] 1 tab PO DAILY 05/08/18 03/21/19 History atorvastatin 40 mg PO DAILY 05/08/18 03/21/19 History metoprolol tartrate 1 tab PO DAILY 05/08/18 03/21/19 History cholecalciferol (vitamin D3) 1,000 mg PO DAILY 09/09/18 03/21/19 History [Vitamin D3] cyclobenzaprine 20 mg PO TID 09/09/18 03/21/19 History desmopressin 0.1 mg PO QAM 09/09/18 03/21/19 History ferrous gluconate 324 mg PO DAILY 09/09/18 03/21/19 History levothyroxine 225 mcg PO DAILY 09/09/18 03/21/19 History quetiapine [Seroquel] 200 mg PO PRN PRN 09/09/18 03/21/19 History sennosides-docusate sodium [DOK 1 tab PO QHS PRN 09/09/18 03/21/19 History Plus] hydrocortisone 10 mg PO QNOON 03/21/19 03/21/19 History sennosides-docusate sodium [DOK 1 tab PO BID 03/21/19 03/21/19 History Plus] Allergies Allergy/AdvReac Type Severity Reaction Status Date / Time gemfibrozil [From Lopid] AdvReac Unknown Unverified 09/09/18 13:38 Exam Narrative Exam Narrative: General: Patient appears comfortable,NAD. Briefly awake but then asleep but easily arousable, following commands, and answering questions appropriately. Neck: Supple CV: Regular, nontachycardic, S1S2, No rubs, murmurs, or gallops. Pulmonary: Clear to auscultation bilaterally, no crackles, wheezing, or rhonchi Abdomen: + Bowel Sounds, soft, nontender, nondistended Vascular: No lower extremity edema Results Labs Result diagrams: 03/21/19 12:17 03/21/19 12:17 Labs: Laboratory Results - last 24 hr 03/21/19 03/21/19 03/21/19 12:10 12:10 12:17 WBC RBC Hgb Hct MCV MCH MCHC RDW Plt Count MPV Immature Gran % Neutrophils % Lymphocytes % Monocytes % Eosinophils % Basophils % Absolute Neutrophils Absolute Lymphocytes Absolute Monocytes Absolute Eosinophils Absolute Basophils Sodium 141 Potassium 3.3 L Chloride 103 Carbon Dioxide 27.8 Anion Gap 10.2 BUN 11 Creatinine 0.83 Estimated GFR/1.73 m2 >= 60.00 Glucose 115 H Calcium 9.0 Magnesium 1.8 Total Bilirubin 0.3 AST 29 ALT 100 H Alkaline Phosphatase 170 H Total Protein 8.0 Albumin 4.2 TSH < 0.01 L Free T4 1.04 Urine Color Yellow Urine Clarity Clear Urine pH 6.5 Ur Specific [place] 1.015 Urine Protein Negative Urine Ketones Negative Urine Blood Negative Urine Nitrite Negative Urine Bilirubin Negative Urine Urobilinogen 0.2 Ur Leukocyte Esterase Negative Urine Glucose Negative Urine Opiates Screen Negative Urine Methadone Screen Negative Ur Barbiturates Screen Negative Ur Tricyclics Screen Negative Ur Amphetamines Screen Negative U Benzodiazepines Scrn Negative Urine Cocaine Screen Negative Ur THC Screen Positive 03/21/19 12:17 WBC 4.88 RBC 5.62 Hgb 14.6 Hct 44.7 MCV 79.5 L MCH 26.0 L MCHC 32.7 RDW 14.9 H Plt Count 223 MPV 10.3 Immature Gran % 0.4 Neutrophils % 47.6 Lymphocytes % 38.7 Monocytes % 9.6 Eosinophils % 3.3 Basophils % 0.4 Absolute Neutrophils 2.32 Absolute Lymphocytes 1.89 Absolute Monocytes 0.47 Absolute Eosinophils 0.16 Absolute Basophils 0.02 Sodium Potassium Chloride Carbon Dioxide Anion Gap BUN Creatinine Estimated GFR/1.73 m2 Glucose Calcium Magnesium Total Bilirubin AST ALT Alkaline Phosphatase Total Protein Albumin TSH Free T4 Urine Color Urine Clarity Urine pH Ur Specific [place] Urine Protein Urine Ketones Urine Blood Urine Nitrite Urine Bilirubin Urine Urobilinogen Ur Leukocyte Esterase Urine Glucose Urine Opiates Screen Urine Methadone Screen Ur Barbiturates Screen Ur Tricyclics Screen Ur Amphetamines Screen U Benzodiazepines Scrn Urine Cocaine Screen Ur THC Screen Last Vital Signs Temp 36.6 C 03/21/19 12:07 Pulse 61 03/21/19 13:55 Resp 16 03/21/19 13:55 BP 124/75 03/21/19 13:55 Pulse Ox 98 03/21/19 13:55
[2019-03-21] MEDS: Magnesium Oxide 400 MG TAB PO (16:20)
[2019-03-21] MEDS: Potassium Chloride 20 MEQ TABCR 40 MEQ PO (16:20)
[2019-03-21 16:32] VITALS: BP 129/83; PULSE 60; RESP 18; TEMP 35.4; O2SAT 99
[2019-03-21] MEDS: Calcium Carbonate *TUMS* 500 MG CHEW PO (18:14)
[2019-03-21] MEDS: Sennosides/Docusate Sodium TAB 1 TAB PO ×2 (20:29→21:10)
[2019-03-21] MEDS: Atorvastatin 40 MG TAB (20:29)
[2019-03-21] MEDS: traZODone 50 MG TAB 200 MG PO (20:29)
[2019-03-21] MEDS: Cyclobenzaprine 10 MG TAB PO (20:29)
[2019-03-21] MEDS: Acetaminophen 325 MG TAB PO (20:32)
[2019-03-21] MEDS: Zonisamide 100 MG CAP 200 MG PO (21:08)
[2019-03-21] MEDS: Normal Saline Flush 10 ML SYR IVP (21:09)
[2019-03-21] MEDS: Hydrocortisone SOD SUC. 100 MG VIAL 50 MG IVP (21:10)
[2019-03-21 23:49] VITALS: BP 129/72; PULSE 81; RESP 17; TEMP 36; O2SAT 99
[2019-03-22] MEDS: Levothyroxine 125 MCG TAB PO (05:45)
[2019-03-22] MEDS: Levothyroxine 100 MCG TAB PO (05:45)
[2019-03-22 07:07] LABS: Abs Immature Grans 0.03 k/cumm (0.0-0.09); Absolute Basophil Count 0.01 k/cumm (0.0-0.2); Absolute Eosinophil Count 0.09 k/cumm (0.0-0.7); Absolute Lymphocyte Count 2.01 k/cumm (1.2-3.4); Absolute Neutrophil Count 3.46 k/cumm (1.2-6.7); Basophils % 0.2; Eosinophils % 1.5; HCT 43.1 % (40.0-50.0); HGB 14.2 g/dL (13.5-17.5); Immature Grans % 0.5; Lymphocytes % 33.5; Mean Corp. HGB Concentration 32.9 g/dL (32.0-36.0); Mean Corpuscular Hemoglobin 26.4 pg (27.0-33.0); Mean Corpuscular Volume 80.1 fL (80-95); Mean Platelet Volume 10.7 fL (8.0-11.0); Monocytes % 6.7; Neutrophils % 57.6; Platelet Count 256 x1000/uL (130-400); RBC 5.38 m/cumm (4.50-6.00)
[2019-03-22 07:34] LABS: Anion Gap 11.9 mmol/L (3-11); BUN 11 mg/dL (7-18); CO2 24.1 mmol/L (21.0-32.0); CREATININE 0.87 mg/dL (0.70-1.30); Calcium 8.4 mg/dL (8.5-10.1); Chloride 117 mmol/L (98-107); Glucose 96 mg/dL (70-100); Magnesium 1.9 mg/dL (1.8-2.4); Potassium 3.9 mmol/L (3.5-5.1); Sodium 153 mmol/L (136-145)
[2019-03-22 07:50] VITALS: BP 125/65; PULSE 89; RESP 20; TEMP 36.4; O2SAT 97
[2019-03-22] MEDS: Cholecalciferol (Vitamin D3) 1,000 UNIT TAB 1000 UNITS PO (08:25)
[2019-03-22] MEDS: Omeprazole 20 MG CAPCR 40 MG PO (08:25)
[2019-03-22] MEDS: Hydrocortisone 10 MG TAB 20 MG PO (08:25)
[2019-03-22] MEDS: Aspirin E.C. 81 MG TABEC PO (08:25)
[2019-03-22] MEDS: Cyclobenzaprine 10 MG TAB PO ×2 (08:26→13:48)
[2019-03-22] MEDS: Calcium Carbonate *TUMS* 500 MG CHEW PO (08:26)
[2019-03-22] MEDS: Ferrous Gluconate 324 MG TAB PO (08:26)
[2019-03-22] MEDS: METOPROLOL CR 50 MG, METOPROLOL CR 25 MG 75 MG PO (08:26)
[2019-03-22] MEDS: Sennosides/Docusate Sodium TAB 1 TAB PO (08:26)
[2019-03-22] MEDS: Hydrocortisone 10 MG TAB PO (11:32)
[2019-03-22 14:18] LABS: Sodium 149 mmol/L (136-145)
[2019-03-22 14:27] VITALS: RESP 18; RESP 4
[2019-03-22] MEDS: Albuterol/Ipratropium 3 ML UPD VIAL UPD (14:27)
--- NOTE | 2019-03-22 14:54 | W.PM.DS.N ---
Date of service: 03/22/19 Time of Service: 14:55 DS: Diagnosis Discharge Diagnosis (1) Altered mental status: Status: Acute Discharge Plan Disposition Patient Disposition: HOME Condition: Improving Discharge Details Chief Complaint: AMS/LOC Clinical Impression: Altered mental status Reason For Visit: ALTERED MENTAL STATUS Admit Date/Time: 03/21/19 15:27 Admit Provider: Michael Connolly Attending Provider: Michael Connolly Primary Care Provider: Subha Colon ED Provider: Tony Macias Hospital Course Hospital Course: Chief Complaint: Altered Mental Status HPI: Altered Mental Status Narrative: 28 year old patient with a prior history of Panhypopituitarism following a remote tumor resection, admitted from [facility] Emergency Department on 03/21 secondary to an altered mental status. Mr. 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 Other history includes chronic leg cramps, Urinary retention, and GERD. The patient lives in a assisted with caretakers, and was brought in on the morning of admission found to be lethargic and difficult to arouse. His Caregivers reported that he hds appeared this way in the past in the setting of illness. Work-up in the ED was remarkable for essentially normal labs, significantly with a normal sodium and white blood count, TSH, and urinalysis. He was afebrile, not tachycardic, not hypoxic, and normotensive. Imaging with CT of the head and CXR were negative for any acute findings. Interestingly his UDS returned positive for THC, which was surprising and unexpected to the caregivers. The patient was also found to respond to verbal and tactile stimuli and follow commands, and his mental status improved prior to admission. At time of visit he was awake briefly and eating potato chips. He was referred for admission for overnight observation to ensure lack of other significant pathology. This morning Mr. Burgos has returned to his baseline mental status and activity. He was noted to have developed hypernatremia overnight - appears that he did not receive his Desmopressin last evening. No other events reported. Remains afebrile. Assessment & Plan: (1) Altered mental status: Unsure of exact etiology, but unexpected findings of THC in Urine Drug Screen - ingestion of a THC containing substance could certainly explain his symptoms, especially as his mental status has normalized without intervention. - Discussed case with patient's director of security - agrees with plan of action. Patient is deemed safe for discharge without further intervention. - Current Hypernatremia likely result of missed Desmopressin dose and decreased fluid intake - has improved gently from 153 -->149 over the course of 8 hours. Endocrinology believes he is safe to return home on his old regimen, with prescribed 3.5 L Fluid intake daily as his sodium values have been stable over a long period of time. No further intervention recommended. Also agreed with stress dosed steroids overnight, but believes no further taper is required - will return to home dosing of hydrocortisone. - Repeat UDS drawn and pending. Home Meds and New Rx's Prescriptions: New cyclobenzaprine 10 mg Tablet 10 mg PO TID Qty: 0 RF: 0 metoprolol succinate 25 mg Tablet Extended Release 24 Hr 75 mg PO DAILY Qty: 1 RF: 0 Continued trazodone 50 MG tablet 4 tab PO QPM RF: 0 omeprazole 40 MG capsule,delayed release(DR/EC) 1 cap PO DAILY RF: 0 zonisamide 100 MG capsule 2 cap PO QPM RF: 0 hydrocortisone [Cortef] 10 MG tablet 20 mg PO QAM RF: 0 desmopressin 0.1 MG tablet 0.15 tab PO QNOON RF: 0 testosterone [AndroGel] 75 GM gel in metered-dose pump 3 applic Topical QAM RF: 0 atorvastatin 40 mg Tablet 40 mg PO DAILY RF: 0 aspirin [Aspir-81] 81 mg Tablet,Delayed Release (Dr/Ec) 1 tab PO DAILY RF: 0 cyclobenzaprine 10 mg Tablet 20 mg PO TID RF: 0 sennosides-docusate sodium [DOK Plus] 8.6-50 mg Tablet 1 tab PO QHS PRNRF: 0 quetiapine [Seroquel] 200 mg Tablet 200 mg PO PRN PRNRF: 0 desmopressin 0.1 mg Tablet 0.1 mg PO QAM RF: 0 cholecalciferol (vitamin D3) [Vitamin D3] 1,000 unit Capsule 1,000 mg PO DAILY RF: 0 ferrous gluconate 324 mg (38 mg iron) Tablet 324 mg PO DAILY RF: 0 levothyroxine 200 mcg Capsule 225 mcg PO DAILY RF: 0 sennosides-docusate sodium [DOK Plus] 8.6-50 mg Tablet 1 tab PO BID RF: 0 hydrocortisone 10 mg tablet 10 mg PO QNOON RF: 0 calcium carbonate [Tums] 200 mg calcium (500 mg) Tablet,Chewable PO DAILY RF: 0 Discontinued metoprolol tartrate 75 mg Tablet 1 tab PO DAILY RF: 0 Discharge Instructions Stand Alone Forms: Nursing Discharge Form Referrals: Subha Colon [Primary Care Provider] - Activity:: Activity as Tolerated Equipment/Supplies:: No Equipment Needed Diet:: As Tolerated Discharge Orders Discharge Orders: Discharge Order (Routine); Ordered 03/22/19 Ordered By: Michael Connolly DS: Summary Status at Discharge Functional status at discharge: independent ambulation Overall status at discharge: patient is back to baseline Mental Status: other (Mental Status is back to baseline) Speech and Movement: speech and movement normal (Speech and Movement back to normal) Mood: congruent mood and other (Mental Status is back to baseline) Affect: normal affect Exam Psych Mental Status: other (Mental Status is back to baseline) Speech and Movement: speech and movement normal (Speech and Movement back to normal) Mood: congruent mood and other (Mental Status is back to baseline) Affect: normal affect DS: Data Vitals/I&O Vitals and I&O: Vital Signs Temperature 36.4 C L 03/22/19 07:50 Temperature Source Temporal Artery Scan 03/22/19 07:50 Pulse 89 03/22/19 07:50 Pulse Rhythm Regular 03/22/19 08:25 Respiratory Rate 18 03/22/19 14:27 Respiratory Effort Non-Labored 03/22/19 08:25 Respiratory Depth Normal 03/22/19 08:25 Respiratory Pattern Normal 03/22/19 08:25 Blood Pressure 125/65 03/22/19 07:50 Pulse Oximetry 97 03/22/19 07:50 Oxygen Delivery Method Room Air 03/22/19 14:27 Oxygen Flow Rate 0 03/22/19 14:27 Pain Level 0 03/22/19 08:25 Comment 03/22/19 07:50 Intake & Output 03/21/19 03/22/19 03/22/19 23:59 11:59 23:59 Intake Total 540 / 540 600 / 840 240 / 840 Balance 540 / 540 600 / 840 240 / 840 Weight 81.647 kg Intake: Oral 540 / 540 600 / 840 240 / 840 Other: Urine Color Pale Urine Odor Normal Comment changed by nursing care attendant who is in the room. dry at this time, changed by caregiver. Voiding Methods Incontinent Incontinent Data Completed and Pending Completed studies during hospitalization [Text1]: Exam(s) 03/21 a RAD:XR chest 2V PA & lateral SYMPTOM/DIAGNOSIS: ALTERED MENTATION AP AND LATERAL SEMI ERECT CHEST: The lungs are poorly expanded. No gross infiltrate is identified. There is no evidence of a pleural effusion. The heart is within normal limits in size. SUMMARY: No definite evidence of acute cardiopulmonary disease. ------- Exam(s) 03/[address]:CT head wo SYMPTOM/DIAGNOSIS: ALTERED MENTATION NONCONTRAST HEAD CT: A prior right frontal craniotomy is demonstrated. The procedure carried out for right sided aneurysmal clipping. Encephalomalacia in the right frontal lobe is demonstrated. There is no evidence of an intra/extra-axial hemorrhage or mass. There is no skull fracture. SUMMARY: No acute intracranial abnormality is demonstrated. Labs on day of discharge: Labs from last 24 hours 03/22/19 03/22/19 03/22/19 14:00 14:00 13:58 WBC RBC Hgb Hct MCV MCH MCHC RDW Plt Count MPV Immature Gran % Neutrophils % Lymphocytes % Monocytes % Eosinophils % Basophils % Absolute Neutrophils Absolute Lymphocytes Absolute Monocytes Absolute Eosinophils Absolute Basophils Sodium 149 H Potassium Chloride Carbon Dioxide Anion Gap BUN Creatinine Estimated GFR/1.73 m2 Glucose Calcium Magnesium Urine Opiates Screen Pending Urine Methadone Screen Pending Ur Barbiturates Screen Pending Ur Tricyclics Screen Pending Ur Amphetamines Screen Pending U Benzodiazepines Scrn Pending Urine Cocaine Screen Pending Ur THC Screen Pending Ur Carboxy THC GC/MS Pending Ur THC Interpretation Pending Chain of Custody Pending 03/22/19 03/22/19 06:20 06:20 WBC 6.00 RBC 5.38 Hgb 14.2 Hct 43.1 MCV 80.1 MCH 26.4 L MCHC 32.9 RDW 15.0 H Plt Count 256 MPV 10.7 Immature Gran % 0.5 Neutrophils % 57.6 Lymphocytes % 33.5 Monocytes % 6.7 Eosinophils % 1.5 Basophils % 0.2 Absolute Neutrophils 3.46 Absolute Lymphocytes 2.01 Absolute Monocytes 0.40 Absolute Eosinophils 0.09 Absolute Basophils 0.01 Sodium 153 H D Potassium 3.9 Chloride 117 H Carbon Dioxide 24.1 Anion Gap 11.9 H BUN 11 Creatinine 0.87 Estimated GFR/1.73 m2 >= 60.00 Glucose 96 Calcium 8.4 L Magnesium 1.9 Urine Opiates Screen Urine Methadone Screen Ur Barbiturates Screen Ur Tricyclics Screen Ur Amphetamines Screen U Benzodiazepines Scrn Urine Cocaine Screen Ur THC Screen Ur Carboxy THC GC/MS Ur THC Interpretation Chain of Custody 03/21/19 16:20 Nose MRSA Screen - Pending Preliminary micro results at discharge 03/21/19 16:20 MRSA Screen - Pending Nose [facility] Medical History Constipation (Acute) Cortical blindness (Acute) CVA (cerebral vascular accident) (Chronic) Diabetes insipidus (Acute) GERD (gastroesophageal reflux disease) (Chronic) History of brain tumor (Acute) Hx of fracture of pelvis (Acute) Insomnia (Acute) Leg cramps (Acute) 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Acute) Seizures (Acute) TBI (traumatic brain injury) (Acute) Urinary retention (Acute) Social History Smoking/Tobacco Use Status: Never Alcohol Intake: current Alcohol type: other Drug use: Never Substance use type: does not use Do you feel safe at home: Yes Do you feel safe in your relationship?: Yes
[2019-03-22 14:56] LABS: *AMPHETAMINES SCREEN URINE Negative (Negative); *BARBITURATES SCREEN URINE Negative (Negative); *BENZODIAZEPINES SCREEN URINE Negative (Negative); Cannabinoids THC POSITIVE (Negative); Cocaine Screen,Urine Negative (Negative); METHADONE URINE SCREEN Negative (Negative); OPIATES URINE SCREEN Negative (Negative); Tricyclic Antidepressants Negative (Negative)
[2019-03-22 15:48] VITALS: BP 137/93; PULSE 101; RESP 22; TEMP 36.9; O2SAT 99
--- NOTE | 2019-03-22 16:14 | INITIAL_ITS ---
Care Management Initial Assess REASON FOR HOSPITALIZATION:: Altered Mental Status PAST MEDICAL HISTORY/PAST SURGICAL HISTORY:: Urinary retention (Acute). Hx of fracture of pelvis (Acute). 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Acute). Diabetes insipidus (Acute). Cortical blindness (Acute). Constipation (Acute). Leg cramps (Acute). Insomnia (Acute). GERD (gastroesophageal reflux disease) (Chronic). Seizures (Acute). CVA (cerebral vascular accident) (Chronic). TBI (traumatic brain injury) (Acute). History of brain tumor (Acute) PREVIOUS FUNCTIONAL STATUS/SOCIAL/FAMILY SUPPORTS:: Miguel Angel resides in an apartment in [facility] with 24/7 caregiver support through [facility]. He has a sister, Bettina who resides out of the area and is appointed his guardian. Evelyn is Miguel Angel's hvac residential service technician at [facility]. CURRENT FUNCTIONAL STATUS:: Miguel Angel is lying in bed, surrounded by caregivers. He is reportedly at his baseline. ADVANCE DIRECTIVES:: Guardian: sister Bettina. Has patient been provided with information about the portal?: No Did the patient sign up for the portal?: No CODE STATUS:: Full Code INSURANCE COVERAGE / FINANCIAL ISSUES:: Medicaid CURRENT HOME/COMMUNITY SERVICES/EQUIPMENT:: Currently Miguel Angel receives 24/7 caregiver support through [facility]. PRIMARY CARE PHYSICIAN:: Lc Venegas POTENTIAL DISCHARGE NEEDS:: F/U appointment with PCP. Resumption of caregiver supports through [facility]. APS report due to THC presence in urine. PATIENT/FAMILY EDUCATION NEEDS:: Review DC instructions, any limitations, and ongoing DC planning discussion. Discuss 'Ask Me Three' ANTICIPATED BARRIERS TO DISCHARGE:: None identified at this time. TRANSPORTATION:: With caregivers through [facility]. PLAN:: Miguel Angel will to return to his apartment in [place] [facility] with his caregivers once ready per MD. He will follow up with PCP and plan of care as prescribed. At direction of M/S and CM lead, this web content writer completed APS report for positive THC result. His caregivers will transport via private vehicle.
[2019-03-24 16:56] LABS: Carboxy-THC Interpretation Positive.; Delta-9 CarboxyThc by LC-MS/MS 356 ng/mL (Cutoff:<3)
== END 2019-03-22 16:20 | disposition home or self-care (01) ==
LOC: ER 16:19 → MS 16:30
PROVIDERS: Admitting Provider Internal Medicine; Emergency Provider Student in an Organized Health Care Education/Training Program; PCP Nurse Practitioner Family; Visit Provider Internal Medicine
DX: R41.82 Altered mental status, unspecified (principal); I69.354 Hemiplegia and hemiparesis following cerebral infarction affecting left non-dominant side; I69.398 Other sequelae of cerebral infarction; E23.0 Hypopituitarism; R78.89 Finding of other specified substances, not normally found in blood; K21.9 Gastro-esophageal reflux disease without esophagitis; E23.2 Diabetes insipidus; Z79.84 Long term (current) use of oral hypoglycemic drugs; G40.802 Other epilepsy, not intractable, without status epilepticus; Z11.2 Encounter for screening for other bacterial diseases
CPT/HCPCS: 36415; 80048; 80053; 80307; 80349; 82962; 87081; 99217; 99219; 99285; J1650; 70450; 71046; 81003; 83735; 84295; 84439; 84443; 85025; 99284; G0378; J1720; J7620

== ENCOUNTER 2019-03-24 10:57 | Inpatient (IN) | payer MEDICAID, SELFPAY ==
[2019-03-24] VITALS (63 sets, daily range): BP systolic 90–142; BP diastolic 45–90; PULSE 70–113; RESP 12–31; TEMP 37.3–39.6; O2SAT 80–99
--- NOTE | 2019-03-24 11:17 | DI.RAD_ITS ---
EXAM: XR CHEST 2V PA AND LATERAL INDICATION: fever. COMPARISON: XR CHEST 2V PA AND LATERAL from 03/21/2019 TECHNIQUE: 2D digital imaging was performed. FINDINGS: Heart is not enlarged. Lungs are grossly clear but hypoventilated. No gross pleural effusion seen. IMPRESSION: No evidence of acute process
--- NOTE | 2019-03-24 11:19 | ED.GENADUL_ITS ---
Discharge Plan Disposition Patient Disposition: [facility] INPATIENT Condition: Serious Discharge Details Chief Complaint: RespSymp Clinical Impression: Altered mental status, Fever Primary Care Provider: Subha Colon ED Provider: Tony Macias Home Meds and New Rx's Prescriptions: No Action trazodone 50 MG tablet 4 tab PO QPM RF: 0 omeprazole 40 MG capsule,delayed release(DR/EC) 1 cap PO DAILY RF: 0 zonisamide 100 MG capsule 2 cap PO QPM RF: 0 hydrocortisone [Cortef] 10 MG tablet 20 mg PO QAM RF: 0 desmopressin 0.1 MG tablet 0.15 tab PO QNOON RF: 0 testosterone [AndroGel] 75 GM gel in metered-dose pump 3 applic Topical QAM RF: 0 atorvastatin 40 mg Tablet 40 mg PO DAILY RF: 0 aspirin [Aspir-81] 81 mg Tablet,Delayed Release (Dr/Ec) 1 tab PO DAILY RF: 0 sennosides-docusate sodium [DOK Plus] 8.6-50 mg Tablet 1 tab PO QHS PRNRF: 0 quetiapine [Seroquel] 200 mg Tablet 200 mg PO PRN PRNRF: 0 desmopressin 0.1 mg Tablet 0.1 mg PO QAM RF: 0 cholecalciferol (vitamin D3) [Vitamin D3] 1,000 unit Capsule 1,000 mg PO DAILY RF: 0 ferrous gluconate 324 mg (38 mg iron) Tablet 324 mg PO DAILY RF: 0 levothyroxine 200 mcg Capsule 225 mcg PO DAILY RF: 0 sennosides-docusate sodium [DOK Plus] 8.6-50 mg Tablet 1 tab PO BID RF: 0 hydrocortisone 10 mg tablet 10 mg PO QNOON RF: 0 calcium carbonate [Tums] 200 mg calcium (500 mg) Tablet,Chewable 200 mg PO DAILY RF: 0 metoprolol succinate 25 mg Tablet Extended Release 24 Hr 75 mg PO DAILY Qty: 1 RF: 0 melatonin 3 mg Tablet 9 mg PO HS RF: 0 baclofen 20 mg Tablet 20 mg PO TID RF: 0 magnesium 250 mg Tablet 250 mg PO BID RF: 0 Medical Decision Making --28-year-old male with history of prior brain tumor status post resection and resultant CVA with residual left-sided weakness, seizure disorder, adrenal insufficiency, lives in fpc with caretakers here with altered mental status since last night. Recently admitted to the hospital for same and discharged after improvement 2 days ago. Patient now also with fever. Unclear etiology with no focal bacterial infection identified on exam.. Patient is febrile. I will give acetaminophen IV. Will give NS 250ml bolus. --Chest x-ray interpreted by radiology: Lungs are poorly expanded. No gross infiltrate is identified. No evidence of acute cardiopulmonary disease. --Labs reviewed and leukopenia noted. Urinalysis reviewed and nondiagnostic. Not consistent with UTI. Plan to proceed to lumbar puncture to assess for meningitis. On discussion of risk benefits with the patient's guardian, his sister, she refuses lumbar puncture noting that she feels this is likely a virus. I explained that patient may have life-threatening or lifestyle modifying disease and again reiterated my concerns and plan and she provided informed refusal to lumbar puncture. --Patient reassessed and is more alert, eating and drinking, still altered from baseline. I spoke with the patient's fire prevention engineer who also spoke with the patient's sister and then I spoke with the patient's sister again. After lengthy discussion of risk and benefits of procedure, sister now provides verbal informed consent to perform lumbar puncture and procedural sedation. Patient's fire prevention engineer, Dr. Zaidi at [facility], agrees with treating with Decadron for potential meningitis which will also cover stress dosing. --Procedural sedation performed by me. LP performed by FROG CATCHER. Patient noted to have SBP 89 at conclusion of procedure. NS 250mL bolus given. -- Patient reassessed and returned to baseline mentation. 17:30 --I spoke with Dr. Urban, hospitalist, who will admit the patient to the ICU. CSF pending at time of admission. Patient has been covered with Decadron 0.15 mg/kg, ceftriaxone 2 g IV and is currently receiving vancomycin IV. Patient is on volume restriction -- he has recevied 500mL bolus total here in ED not including medication volume. HPI General Date/Time Provider Initiated Documentation: 03/24/19 11:17 . HPI Narrative: 28-year-old male with multiple medical problems including history of traumatic brain injury, brain mass status post resection remotely, resultant CVA with residual left-sided weakness, seizure disorder, adrenal insufficiency, diabetes, lives in fpc, here today with altered mental status. Patient was seen here on 03/21/2019 for similar and admitted. At that time he was not noted to have a fever. He now has had a fever today. No recent cough. No vomiting. History and review of systems limited secondary to altered mental status. Related Data Home Medications Medication Instructions Recorded Confirmed desmopressin 0.15 tab PO QNOON 12/29/15 03/24/19 hydrocortisone [Cortef] 20 mg PO QAM 12/29/15 03/24/19 omeprazole 1 cap PO DAILY 12/29/15 03/24/19 testosterone [AndroGel] 3 applic TOPICAL QAM 12/29/15 03/24/19 trazodone 4 tab PO QPM 12/29/15 03/24/19 zonisamide 2 cap PO QPM 12/29/15 03/24/19 aspirin [Aspir-81] 1 tab PO DAILY 05/08/18 03/24/19 atorvastatin 40 mg PO DAILY 05/08/18 03/24/19 cholecalciferol (vitamin D3) 1,000 mg PO DAILY 09/09/18 03/24/19 [Vitamin D3] desmopressin 0.1 mg PO QAM 09/09/18 03/24/19 ferrous gluconate 324 mg PO DAILY 09/09/18 03/24/19 levothyroxine 225 mcg PO DAILY 09/09/18 03/24/19 quetiapine [Seroquel] 200 mg PO PRN PRN 09/09/18 03/24/19 sennosides-docusate sodium [DOK 1 tab PO QHS PRN 09/09/18 03/24/19 Plus] calcium carbonate [Tums] 200 mg PO DAILY 03/21/19 03/24/19 hydrocortisone 10 mg PO QNOON 03/21/19 03/24/19 sennosides-docusate sodium [DOK 1 tab PO BID 03/21/19 03/24/19 Plus] metoprolol succinate 75 mg PO DAILY #1 tab 03/22/19 03/24/19 baclofen 20 mg PO TID 03/24/19 03/24/19 magnesium 250 mg PO BID 03/24/19 03/24/19 melatonin 9 mg PO HS 03/24/19 03/24/19 Previous Rx's Medication Instructions Recorded metoprolol succinate 75 mg PO DAILY #1 tab 03/22/19 Allergies Allergy/AdvReac Type Severity Reaction Status Date / Time gemfibrozil [From Lopid] AdvReac Unknown Unverified 03/24/19 11:05 General Stated Complaint: RespSymp KWASI: 3 Review of Systems Review of Systems ROS Unobtainable: Unobtainable due to mental status [facility] Medical History Constipation (Acute) Cortical blindness (Acute) CVA (cerebral vascular accident) (Chronic) Diabetes insipidus (Acute) GERD (gastroesophageal reflux disease) (Chronic) History of brain tumor (Acute) Hx of fracture of pelvis (Acute) Insomnia (Acute) Leg cramps (Acute) 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Acute) Seizures (Acute) TBI (traumatic brain injury) (Acute) Urinary retention (Acute) Social History Smoking/Tobacco Use Status: Never Alcohol Intake: current Alcohol type: other Drug use: Never Substance use type: does not use Do you feel safe at home: Yes Do you feel safe in your relationship?: Yes Exam Const General: no acute distress HENMT Head: normocephalic and atraumatic Eyes Conjunctivae: normal conjunctivae Sclera: normal sclerae Neck Neck: trachea midline and supple Resp Auscultation: clear to auscultation bilaterally, no rales, no rhonchi and no wheezes Cardio Jugular venous pressure: no JVD Rate: regular rate and not tachycardic Rhythm: regular rhythm GI Palpation: soft, not firm, no guarding, no masses, not rigid and nontender Skin General skin exam: no rashes or lesions noted Neuro General: not alert, tone normal and other (Wakes to tactile stimuli, protecting airway) Cognition: abnormal cognition Extrem General: no edema Course Vital Signs Vital signs: Vital Signs Temperature 37.3 C 03/24/19 11:00 Pulse 72 03/24/19 11:00 Respiratory Rate 24 03/24/19 11:00 Blood Pressure 142/89 H 03/24/19 11:00 Pulse Oximetry 91 L 03/24/19 11:00 Temperature 37.3 C 03/24/19 11:00 Temperature Source Temporal Artery Scan 03/24/19 11:00 Pulse 72 03/24/19 11:00 Respiratory Rate 24 03/24/19 11:00 Respiratory Effort Non-Labored 03/24/19 11:09 Respiratory Depth Normal 03/24/19 11:09 Blood Pressure 142/89 H 03/24/19 11:00 Pulse Oximetry 91 L 03/24/19 11:00 Oxygen Delivery Method Room Air 03/24/19 11:00 Oxygen Flow Rate 0 03/24/19 11:00 Pain Level 4 03/24/19 11:00 Lab/Test Results Lab/Test Results: 03/24/19 11:18 Blood Blood Culture - Pending 03/24/19 11:18 Blood Blood Culture - Pending Procedures Procedural Sedation Indication: other (LP) ASA Class: III Preparation: laboratory monitor applied, pulse oximeter, capnometry used, supplemental O2 applied and suction/airway equipment at bedside Ketamine: IV Ketamine dose (mg): 82 Patient Tolerated Procedure: well Complications: hypoxia (5-10 seconds at onset procedure) Interventions: oxygen applied and airway repositioned Additional Comments: Patient had brief hypoxia 80% at onset of procedure. Mask oxygen applied and patient immediately saturation improved, rolled to lateral decub and tolerated procedure well. Critical Care Time Critical Care Time Critical Care Time: Yes Total Critical Care Time: 50 Attestation: I spent greater than 50 minutes addressing this patient's immediate life threats
[2019-03-24 12:11] LABS: HGB 13.6 g/dL (13.5-17.5); RBC 5.19 m/cumm (4.50-6.00)
[2019-03-24 12:12] LABS: Mean Corp. HGB Concentration 33.2 g/dL (32.0-36.0); Mean Corpuscular Hemoglobin 26.2 pg (27.0-33.0); Mean Platelet Volume 10.1 fL (8.0-11.0); Platelet Count 176 x1000/uL (130-400)
[2019-03-24 12:24] LABS: ALT 99 U/L (16-63); AST 38 U/L (15-37); Albumin 3.5 g/dL (3.4-5.0); Alkaline Phosphatase 123 U/L (46-116); Anion Gap 10.8 mmol/L (3-11); BUN 14 mg/dL (7-18); Bilirubin, Total 0.8 mg/dL (0.2-1.0); CO2 26.2 mmol/L (21.0-32.0); CREATININE 1.13 mg/dL (0.70-1.30); Calcium 7.8 mg/dL (8.5-10.1); Chloride 97 mmol/L (98-107); Glucose 125 mg/dL (70-100); Potassium 3.2 mmol/L (3.5-5.1); Sodium 134 mmol/L (136-145); Total Protein 6.8 g/dL (6.4-8.2)
[2019-03-24] MEDS: ACETAMINOPHEN 1,000 MG/100 ML BTL 400 MG (12:32)
[2019-03-24 12:42] LABS: Absolute Lymphocyte Count 0.66 k/cumm (1.2-3.4); Absolute Monocyte Count 0.35 k/cumm (0.11-0.7); Absolute Neutrophil Count 2.85 k/cumm (1.2-6.7); Atypical Lymphocytes % 2
[2019-03-24 12:43] LABS: Abs Immature Grans 0.04 k/cumm (0.0-0.09); Diff Comment Manual Differential
[2019-03-24 12:44] LABS: Microcytosis 1+; Polychromasia Present
[2019-03-24 13:10] LABS: Bilirubin Negative (Negative); Blood Negative (Negative); Clarity Clear (Clear); Glucose Negative (Negative); Ketones Negative (Negative); Leukocyte Esterase Negative (Negative); Nitrite Negative (Negative); Urobilinogen 0.2 EU/dL (Up TO 0.2); pH 6.5 (5-8)
[2019-03-24] MEDS: Normal Saline 250 ML 500 ML IV (13:13)
[2019-03-24] MEDS: Ketamine 500 MG/10 ML VIAL 82 MG IVP (16:25)
[2019-03-24] MEDS: Lidocaine 1% Multi-Dose 50 ML VIAL (16:45)
--- NOTE | 2019-03-24 17:06 | RESPIRATORY ---
03/24/19 Pt here for conscious sedation for spinal tap. Pre: Sp02 96% HR 98 EtCO2 30mmhg BP 113-63 RR 11, Procedure: SpO2 89-96% HR 88-92 EtCO2 12-27mmhg [id number]/82-83 RR12-17, Post: Sp02 99% HR 96 EtCO2 22mmhg BP 116/64 RR 17. No suction needed, Pt moaning and moving around some and opening eyes.
[2019-03-24] MEDS: cefTRIAXone 2 GM/50 ML BAG IVPB (17:22)
[2019-03-24] MEDS: Dexamethasone 10 MG/ML VIAL 12.5 MG IVP (17:22)
[2019-03-24 17:48] LABS: Clarity Clear; Tube # 4
[2019-03-24 17:49] LABS: RBC 2 /mm3 (0-5); WBC 0 /mm3 (0-5); Xanthochromia Absent
[2019-03-24 18:04] LABS: Total Protein (CSF) 98 mg/dL (15-45)
[2019-03-24 18:21] LABS: *AMPHETAMINES SCREEN URINE Negative (Negative); *BARBITURATES SCREEN URINE Negative (Negative); *BENZODIAZEPINES SCREEN URINE Negative (Negative); Cannabinoids THC POSITIVE (Negative); Cocaine Screen,Urine Negative (Negative); METHADONE URINE SCREEN Negative (Negative); OPIATES URINE SCREEN Negative (Negative)
[2019-03-24 18:25] LABS: Glucose (CSF) 62 mg/dL (40-70)
[2019-03-24 18:30] LABS: Tricyclic Antidepressants POSITIVE (Negative)
[2019-03-24 18:33] LABS: Lactate 2.5 mmol/L (0.6-1.4)
[2019-03-24 19:14] LABS: Procalcitonin 0.1 ng/mL
--- NOTE | 2019-03-24 21:05 | HPE_ITS ---
Date of service: 03/24/19 Time of Service: 20:15 Assessment and Plan Assessment and plan (1) Acute febrile illness: Status: Acute Assessment and plan: probably viral in origin and his acute alteration in his mental status was probably related to his need for stres dose steroids. He received stress dose steroids during his last visit and improved his mental status overnight but then returned home on his usual dose of hydrocortisone. I will keep him on stress dose steroids for 72 hrs and await blood and CSF culture results. As this does not appear to be a meningitis, I am going to put him back on hydrocortisone but give him 50 mg BID which would be equivalent to 3 x his daily dose. (2) Altered mental status: Status: Acute Assessment and plan: As above. If further decline in his mental status then consider getting MRI of the brain but this does not appear to be a viral nor bacterial meningitis. I am going to withold Acyclovir for now. 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 The [facility] w/ caretakers who are present w/ him 24 hr per day. He was recently hospitalized for acutely decreased mental status. He has presented in the past w/ lethargy when he is coming down w/ acute illness including infections. During his recent hospitalization from 03/21-03/22/2019 he was afebrile and his CXR and head CT were unremarkable as were his labs including CBC, TSH, UA, and CMP. However, his urine drug screen was positive for THC although he does not use marijiuana, although he uses CBD oil to help w/ chronic muscle cramps. With iv fluids and stress dose corticosteroids, his mental status improved overnight and he was [facility]. He now presents w/ similar acute lethargy but now associated w/ fever of 39.6. Repeat workup for infectious process has included CMP, CBC, lactate, UA, CXR and finally an LP. His CBC demonstrated a mild leukopenia of 3900, no anemia and normal WBC differential. CMP was remarkable for mild hyponatremia of 134 and potassium of 3.2 but normal BUN 14 and creatinine of 1.13 and normal AG of 10.8. His lactate was mildly elevated at 2.5. UA was unremarkable. CSF was remarkable for elevated protein of 98 and normal glucose of 62. Fluid was clear and colorless w/ 0 WBC and 2 RBC. Gram stain demonstrated rare WBC and no bacteria. Treatment in the ER included fluid bolus of 250 mL, iv tylenol and initiation of antibiotics including Rocephin 2 gm and Vancomycin 1.5 gm after giving him decadron 12.[address] Macias, emergency room attending, discussed this case w/ the patient's erp manager, Dr. Zaidi at [facility], he agreed w/ decadron for stress dosing for possible meningitis but recommended switching to hydrocortisone 50 mg BID if there is no evidence for bacterial meningitis. This was discussed prior to results of his LP. The patient is now more mentally alert, asking for food and behaving more like his baseline according to his caregivers and his sister who is his DPOA. The patient will remain on stress dose hydrocortisone, antibiotics will be continued until CSF and blood cultures come back negative. I do not feel that he has meningitis as he has no nuchal rigidity and he has responded mentally quickly to stress dose corticosteroids. I feel that he has a fever from a viral illness but probably not meningitis given his clinical picture and rapid response to steroids and unremarkable CSF results. Review of Systems Constitutional Constitutional: Reports as per [facility] Medical History (Updated 03/24/19 @ 21:55 by Skip Kate) Constipation (Chronic) Cortical blindness (Chronic) CVA (cerebral vascular accident) (Resolved) Diabetes insipidus (Chronic) GERD (gastroesophageal reflux disease) (Chronic) History of brain tumor (Resolved) Hx of fracture of pelvis (Resolved) Insomnia (Chronic) Leg cramps (Chronic) 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Chronic) Seizures (Chronic) TBI (traumatic brain injury) (Chronic) Urinary retention (Resolved) Surgical History (Updated 03/24/19 @ 21:49 by Skip Kate) H/O brain surgery (Inactive) Social History Smoking/Tobacco Use Status: Never Alcohol Intake: current Alcohol type: other Drug use: Never Substance use type: does not use Do you feel safe at home: Yes Do you feel safe in your relationship?: Yes Meds Home Medications and Allergies Home Medications Medication Instructions Recorded Confirmed Type desmopressin 0.15 tab PO QNOON 12/29/15 03/24/19 History hydrocortisone [Cortef] 20 mg PO QAM 12/29/15 03/24/19 History omeprazole 1 cap PO DAILY 12/29/15 03/24/19 History testosterone [AndroGel] 3 applic TOPICAL QAM 12/29/15 03/24/19 History trazodone 4 tab PO QPM 12/29/15 03/24/19 History zonisamide 2 cap PO QPM 12/29/15 03/24/19 History aspirin [Aspir-81] 1 tab PO DAILY 05/08/18 03/24/19 History atorvastatin 40 mg PO DAILY 05/08/18 03/24/19 History cholecalciferol (vitamin D3) 1,000 mg PO DAILY 09/09/18 03/24/19 History [Vitamin D3] desmopressin 0.1 mg PO QAM 09/09/18 03/24/19 History ferrous gluconate 324 mg PO DAILY 09/09/18 03/24/19 History levothyroxine 225 mcg PO DAILY 09/09/18 03/24/19 History quetiapine [Seroquel] 200 mg PO PRN PRN 09/09/18 03/24/19 History sennosides-docusate sodium [DOK 1 tab PO QHS PRN 09/09/18 03/24/19 History Plus] calcium carbonate [Tums] 200 mg PO DAILY 03/21/19 03/24/19 History hydrocortisone 10 mg PO QNOON 03/21/19 03/24/19 History sennosides-docusate sodium [DOK 1 tab PO BID 03/21/19 03/24/19 History Plus] metoprolol succinate 75 mg PO DAILY #1 tab 03/22/19 03/24/19 Rx baclofen 20 mg PO TID 03/24/19 03/24/19 History magnesium 250 mg PO BID 03/24/19 03/24/19 History melatonin 9 mg PO HS 03/24/19 03/24/19 History Allergies Allergy/AdvReac Type Severity Reaction Status Date / Time gemfibrozil [From Lopid] AdvReac Unknown Unverified 03/24/19 11:05 Exam Const General: anxious and combative Nutritional Appearance: overweight Orientation: alert, awake and oriented to person Limitations: behavioral limitations [facility] Head: normal to inspection, no palpable skull fracture, normocephalic and atraumatic Ears: TM's normal bilaterally General nose exam: external nose normal and nares normal Face and sinus: normal facial exam, sinuses nontender and face symmetric Mouth: oral mucosae normal, lip normal, tongue normal, oropharynx normal and moist mucous membranes Teeth and gingiva: dentition normal Neck Neck: normal visual inspection, full ROM, no lymphadenopathy, no meningeal signs, trachea midline, supple and no JVD Thyroid: thyroid normal Carotids: normal carotid upstroke Lymphatic: no lymphadenopathy noted Resp Effort & Inspection: normal respiratory effort and able to speak in complete sentences Auscultation: clear to auscultation bilaterally Percussion: percussion normal Cardio Jugular venous pressure: no JVD Palpation: normal PMI Rate: regular rate Rhythm: regular rhythm Heart Sounds: S1 normal, S2 normal, normal, physiologic split S2, no murmurs and no rubs Bruits: no abdominal aortic bruits and no carotid bruits Pulses: normal peripheral pulses GI Inspection: normal to inspection and obesity Palpation: soft and nontender Percussion: normal to percussion General: No CVA tenderness Back/Spine/Pelvis Back: no CVA tenderness Cervical Spine: normal cervical lordosis Thoracic/Lumbar Spine: thoracic and lumbar spine normal to inspection Skin General skin exam: no rashes or lesions noted, elasticity normal and turgor normal Lesions: no lesions Rashes: no rashes Wounds: no wounds Neuro General: alert, awake, oriented Patient Orientation: Person, moves all extremities and no focal motor deficits Cognition: normal cognition Speech: speech normal Motor: muscle tone normal throughout Sensory Exam: no sensory deficits noted Extrem General: normal to inspection, full ROM, normal capillary refill, no joint enla rgement, no clubbing, cyanosis or edema, no pedal edema and no calf tenderness Results Imaging Chest x-ray: report reviewed Labs Result diagrams: 03/24/19 11:52 03/24/19 11:52 Labs: Laboratory Results - last 24 hr 03/24/19 03/24/19 03/24/19 11:52 11:52 11:52 WBC 3.90 L RBC 5.19 Hgb 13.6 Hct 41.0 MCV 79.0 L MCH 26.2 L MCHC 33.2 RDW 15.0 H Plt Count 176 MPV 10.1 Immature Gran % See Differential Neutrophils % 64.0 Band Neutrophils % 9.0 Lymphocytes % 15.0 Atypical Lymphs % 2 Monocytes % 9.0 Eosinophils % 0.0 Basophils % 0.0 Metamyelocytes % 1.0 Absolute Neutrophils 2.85 Absolute Lymphocytes 0.66 L Absolute Monocytes 0.35 Absolute Eosinophils 0.00 Absolute Basophils 0.00 Differential Comment Manual differential RBC Morphology See below Polychromasia Present Xanthochromia Microcytosis 1+ Sodium 134 L D Potassium 3.2 L Chloride 97 L Carbon Dioxide 26.2 Anion Gap 10.8 BUN 14 Creatinine 1.13 Estimated GFR/1.73 m2 >= 60.00 Glucose 125 H Lactate 2.0 H Calcium 7.8 L Total Bilirubin 0.8 AST 38 H ALT 99 H Alkaline Phosphatase 123 H Total Protein 6.8 Albumin 3.5 Procalcitonin Urine Color Urine Clarity Urine pH Ur Specific [place] Urine Protein Urine Ketones Urine Blood Urine Nitrite Urine Bilirubin Urine Urobilinogen Ur Leukocyte Esterase Urine Glucose CSF Tube Number CSF Color CSF Clarity CSF WBC CSF RBC CSF Diff Comment CSF Glucose CSF Total Protein Urine Opiates Screen Urine Methadone Screen Ur Barbiturates Screen Ur Tricyclics Screen Ur Amphetamines Screen U Benzodiazepines Scrn Urine Cocaine Screen Ur THC Screen 03/24/19 03/24/19 03/24/19 13:00 13:00 17:00 WBC RBC Hgb Hct MCV MCH MCHC RDW Plt Count MPV Immature Gran % Neutrophils % Band Neutrophils % Lymphocytes % Atypical Lymphs % Monocytes % Eosinophils % Basophils % Metamyelocytes % Absolute Neutrophils Absolute Lymphocytes Absolute Monocytes Absolute Eosinophils Absolute Basophils Differential Comment RBC Morphology Polychromasia Xanthochromia Microcytosis Sodium Potassium Chloride Carbon Dioxide Anion Gap BUN Creatinine Estimated GFR/1.73 m2 Glucose Lactate Calcium Total Bilirubin AST ALT Alkaline Phosphatase Total Protein Albumin Procalcitonin Urine Color Yellow Urine Clarity Clear Urine pH 6.5 Ur Specific [place] 1.010 Urine Protein Negative Urine Ketones Negative Urine Blood Negative Urine Nitrite Negative Urine Bilirubin Negative Urine Urobilinogen 0.2 Ur Leukocyte Esterase Negative Urine Glucose Negative CSF Tube Number CSF Color CSF Clarity CSF WBC CSF RBC CSF Diff Comment CSF Glucose 62 CSF Total Protein Urine Opiates Screen Negative Urine Methadone Screen Negative Ur Barbiturates Screen Negative Ur Tricyclics Screen Positive A Ur Amphetamines Screen Negative U Benzodiazepines Scrn Negative Urine Cocaine Screen Negative Ur THC Screen Positive A 03/24/19 03/24/19 03/24/19 17:00 17:00 18:25 WBC RBC Hgb Hct MCV MCH MCHC RDW Plt Count MPV Immature Gran % Neutrophils % Band Neutrophils % Lymphocytes % Atypical Lymphs % Monocytes % Eosinophils % Basophils % Metamyelocytes % Absolute Neutrophils Absolute Lymphocytes Absolute Monocytes Absolute Eosinophils Absolute Basophils Differential Comment RBC Morphology Polychromasia Xanthochromia Absent Microcytosis Sodium Potassium Chloride Carbon Dioxide Anion Gap BUN Creatinine Estimated GFR/1.73 m2 Glucose Lactate 2.5 H* Calcium Total Bilirubin AST ALT Alkaline Phosphatase Total Protein Albumin Procalcitonin 0.1 Urine Color Urine Clarity Urine pH Ur Specific [place] Urine Protein Urine Ketones Urine Blood Urine Nitrite Urine Bilirubin Urine Urobilinogen Ur Leukocyte Esterase Urine Glucose CSF Tube Number 4 CSF Color Colorless CSF Clarity Clear CSF WBC 0 CSF RBC 2 CSF Diff Comment CSF Glucose CSF Total Protein 98 H Urine Opiates Screen Urine Methadone Screen Ur Barbiturates Screen Ur Tricyclics Screen Ur Amphetamines Screen U Benzodiazepines Scrn Urine Cocaine Screen Ur THC Screen Last Vital Signs Temp 37.6 C 03/24/19 15:31 Pulse 104 H 03/24/19 19:31 Resp 15 03/24/19 19:40 BP 106/69 03/24/19 19:31 Pulse Ox 98 03/24/19 20:06
[2019-03-24] MEDS: Hydrocortisone SOD SUC. 100 MG VIAL IVP (22:15)
[2019-03-24] MEDS: traZODone 50 MG TAB 200 MG PO (22:19)
[2019-03-24] MEDS: Zonisamide 100 MG CAP 200 MG PO (22:19)
[2019-03-24] MEDS: Melatonin 3 MG TAB 9 MG PO (22:19)
[2019-03-24] MEDS: Normal Saline Flush 10 ML SYR IVP ×2 (22:19→22:53)
[2019-03-24] MEDS: POTASSIUM CHLORIDE/0.9% NACL 1,000 ML 150 MEQ IV (22:40)
[2019-03-24] MEDS: AMPICILLIN SODIUM 2 GM in Normal Saline 100 ML IVPB (22:41)
[2019-03-24] MEDS: diphenhydrAMINE 50 MG/ML VIAL IVP (22:58)
[2019-03-25] VITALS (14 sets, daily range): BP systolic 113–133; BP diastolic 50–84; PULSE 85–121; RESP 16–20; TEMP 36.6–37.3; O2SAT 92–95
[2019-03-25] MEDS: LORazepam 2 MG/ML VIAL 1 MG IVP (01:03)
[2019-03-25] MEDS: AMPICILLIN SODIUM 2 GM in Normal Saline 100 ML IVPB ×6 (02:24→21:13)
[2019-03-25] MEDS: cefTRIAXone 2 GM/50 ML BAG IVPB ×2 (05:03→18:53)
[2019-03-25] MEDS: Levothyroxine 200 MCG TAB PO (05:03)
[2019-03-25] MEDS: Levothyroxine 25 MCG TAB PO (05:03)
[2019-03-25] MEDS: levETIRAcetam 500 MG in Normal Saline 100 ML 400 MG IVPB ×2 (05:39→17:44)
[2019-03-25] MEDS: VANCOMYCIN 1,250 MG in Normal Saline 250 ML 250 MG IV (05:54)
[2019-03-25] MEDS: cefTRIAXone 2 GM/50 ML BAG (06:56)
[2019-03-25 07:35] LABS: Lactate 3.2 mmol/L (0.6-1.4)
[2019-03-25 07:39] LABS: Abs Immature Grans 0.04 k/cumm (0.0-0.09); Absolute Basophil Count 0.01 k/cumm (0.0-0.2); Absolute Lymphocyte Count 0.58 k/cumm (1.2-3.4); Absolute Monocyte Count 0.18 k/cumm (0.11-0.7); Absolute Neutrophil Count 2.81 k/cumm (1.2-6.7); Basophils % 0.3; HCT 39.2 % (40.0-50.0); HGB 12.9 g/dL (13.5-17.5); Immature Grans % 1.1; Mean Corp. HGB Concentration 32.9 g/dL (32.0-36.0); Mean Corpuscular Hemoglobin 26.1 pg (27.0-33.0); Mean Corpuscular Volume 79.2 fL (80-95); Mean Platelet Volume 9.7 fL (8.0-11.0); Neutrophils % 77.6; Platelet Count 229 x1000/uL (130-400); RBC 4.95 m/cumm (4.50-6.00); RBC Distribution Width 14.9 % (11.8-14.1); White Blood Cell Count 3.62 k/cumm (4.4-10.8)
[2019-03-25] MEDS: Baclofen 10 MG TAB 20 MG PO ×3 (07:53→19:32)
[2019-03-25] MEDS: Metoprolol CR 25 MG TABCR 75 MG PO (07:54)
[2019-03-25] MEDS: Calcium Carbonate *TUMS* 500 MG CHEW 250 MG PO (07:54)
[2019-03-25] MEDS: Atorvastatin 40 MG TAB PO (07:54)
[2019-03-25 07:58] LABS: ALT 99 U/L (16-63); AST 39 U/L (15-37); Albumin 3.4 g/dL (3.4-5.0); Alkaline Phosphatase 116 U/L (46-116); Anion Gap 14.4 mmol/L (3-11); BUN 12 mg/dL (7-18); Bilirubin, Total 0.4 mg/dL (0.2-1.0); CO2 21.6 mmol/L (21.0-32.0); CREATININE 1.12 mg/dL (0.70-1.30); Calcium 8.3 mg/dL (8.5-10.1); Chloride 113 mmol/L (98-107); Glucose 179 mg/dL (70-100); Potassium 3.8 mmol/L (3.5-5.1); Sodium 149 mmol/L (136-145); Total Protein 7.1 g/dL (6.4-8.2)
[2019-03-25] MEDS: Magnesium Oxide 400 MG TAB 200 MG PO ×2 (08:04→19:33)
[2019-03-25] MEDS: Cholecalciferol (Vitamin D3) 1,000 UNIT TAB 1000 UNITS PO (08:04)
[2019-03-25] MEDS: Sennosides/Docusate Sodium TAB 1 TAB PO ×2 (08:04→19:33)
[2019-03-25] MEDS: Omeprazole 20 MG CAPCR 40 MG PO (08:04)
[2019-03-25] MEDS: Aspirin E.C. 81 MG TABEC PO (08:04)
[2019-03-25 08:05] LABS: Procalcitonin < 0.1 ng/mL
[2019-03-25] MEDS: Hydrocortisone 10 MG TAB 50 MG PO ×2 (08:17→19:32)
--- NOTE | 2019-03-25 08:54 | INITIAL_ITS ---
Care Management Initial Assess REASON FOR HOSPITALIZATION:: Acute Febrile Illness PAST MEDICAL HISTORY/PAST SURGICAL HISTORY:: Urinary retention, Hx of fracture of pelvis, Panhypopituitarism, Diabetes insipidus, Cortical blindness, Constipation, Leg cramps, Insomnia, GERD, seizures, CVA, TBI, History of brain tumor, AMS admission 03/21/19. PREVIOUS FUNCTIONAL STATUS/SOCIAL/FAMILY SUPPORTS:: Miguel Angel resides in an apartment in [facility] with 24/7 caregiver support through [facility]. He has a sister, Bettina who resides out of the area and is appointed his guardian. Evelyn is Miguel Angel's service delivery management consultant at [facility]. CURRENT FUNCTIONAL STATUS:: Miguel Angel was sleeping soundly, a care provider, Raphael of [facility] at his bedside. Raphael reported Miguel Angel is more at his baseline this morning. CM provided CART items to support Miguel Angel and Raphael while inpatient. ADVANCE DIRECTIVES:: Guardian: sister Bettina. Has patient been provided with information about the portal?: No Did the patient sign up for the portal?: No CODE STATUS:: Full Code INSURANCE COVERAGE / FINANCIAL ISSUES:: Medicaid CURRENT HOME/COMMUNITY SERVICES/EQUIPMENT:: Currently Miguel Angel receives 24/7 caregiver support through [facility]. PRIMARY CARE PHYSICIAN:: Lc Venegas POTENTIAL DISCHARGE NEEDS:: F/U appointment with PCP. Resumption of caregiver supports through [facility]. PATIENT/FAMILY EDUCATION NEEDS:: Review DC instructions, any limitations, and ongoing DC planning discussion. Discuss 'Ask Me Three' ANTICIPATED BARRIERS TO DISCHARGE:: None identified at this time. TRANSPORTATION:: With caregivers through [facility]. PLAN:: Miguel Angel will to return to his apartment in [facility] with his caregivers once ready per MD. He will follow up with PCP and plan of care as prescribed. At direction of M/S and CM lead, this singer songwriter completed APS report for positive THC result. His caregivers will transport via private vehicle.
[2019-03-25] MEDS: TESTOSTERONE 3 EACH TP (09:59)
--- NOTE | 2019-03-25 11:14 | PHARADMIT ---
Admission Pharmacy Clinical Review ACUTE FEBRILE ILLNESS Code Status Full Code Current Weight Wgt-80.5 kg Renally Cleared and Narrow Therapeutic Index Meds CrCl~ 79 mL/min Meds-OK QTc Value / Action Taken QTc-422 NA BP Control, Fever BP-118/65 Tmax-37.3C Electrolytes reviewed Na-149 K+3.8 Mag- DVT Prophylaxis TEDS, SCDs Opiate Usage / Scheduled Bowel Regimen Ordered No Yes Plt/SCr for Heparin / Enoxaparin Plts-229 SCr-1.12 INR for Warfarin NA H/H stable, WBC/Bands H&H- 12.9/39.2 WBC- 3.62 Antibiotic appropriateness AmpicillinIV Rocephin, Vancomycin Cultures and Sensitivities [id number] Surgical ABX d/c within 24 hr na DM control / Insulin Dosing BG-179 Heart Failure (Check EF%) (NADEEM's, B-Block, Diuretics) Toprol-XL, IV to PO Switch No Home Meds Reviewed Yes Home Meds Not Ordered Seroquel, Iron Comments Keppra-IV PatChris Desmopressin & Androgel
[2019-03-25] MEDS: POTASSIUM CHLORIDE/0.9% NACL 1,000 ML 150 MEQ IV (11:40)
[2019-03-25 12:55] LABS: Lactate 2.8 mmol/L (0.6-1.4)
--- NOTE | 2019-03-25 14:35 | W.PM.PROGNOT ---
Date of Service Date of service: 03/25/19 Time of Service: 14:35 Assessment and Plan Assessment and plan (1) Acute febrile illness: Status: Acute Assessment and plan: In discussion with caregivers, it appears that a viral illness has been spreading through the patient's half-way. Current blood and CSF cultures remain negative. Urinalysis negative, CXR without pathology, and serology/CSF for Lyme and [place] are pending. Lactate however remains elevated. - Likely etiology for patient's fever is a viral illness, with change in mental status likely due to adrenal insufficiency and need for stress dosed steroids. - Continue to monitor culture results, and consider discontinuation of antibiotics if they remain negative. - Continue stress dose steroids for another 48 hours while awaiting culture results, with plans for weaning back to base hydrocortisone. - No evidence of meningitis by exam or CSF findings. (2) Altered mental status: Status: Acute Assessment and plan: As above. Qualifiers: Altered mental status type: transient alteration of awareness Qualified Code(s): R40.4 - Transient alteration of awareness (3) Panhypopituitarism: Status: Chronic Assessment and plan: - FT4 previously normal - continue replacement therapy. - Current Hypernatremia likely result of missed Desmopressin dose and decreased fluid intake - will resume home regimen and current IVFs until patient is back to his prescribed 3.5 L fluid intake, and trend sodium values. - Stress dose steroids with plans kendra return to home dosing of hydrocortisone as above. - Will ensure conversation with Endocrinology prior to discharge to ensure appropriate dosing and taper of all of patient's medications. (4) DVT prophylaxis: Status: Acute Assessment and plan: Hold on SC Enoxaparin given LP last evening. Ensure SCDs/TEDs. Subjective Subjective Interval history since last seen: 28 year old patient with a prior history of Panhypopituitarism following a remote tumor resection, readmitted from [facility] on 03/24 secondary to an altered mental status along with findings of fever. Mr. 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 Other history includes chronic leg cramps, Urinary retention, and GERD. The patient lives in a half-way with caretakers, and was brought in on the morning of 03/21 found to be lethargic and difficult to arouse. His work-up was entirely negative, including labwork and imaging, as the patient's mental status rapidly improved overnight and his UDS was positive for THC it was assumed that perhaps an inadvertent ingestion of a THC containing substance could have been responsible for his symptoms. Following a discussion with the patient's Education Reviewer he was discharged home on his regular home regimen of medications - of note, he was initially stress dosed with steroids following admission. The patient returned to the ED on 03/24 with recurrence of lethargy, this time found to be febrile with a temperature of 39.6. Repeat infectious work-up was again negative, and this time included a Lumbar Puncture. Labwork was remarkable for an elevated Lactate, and CSF showed an elevation in protein, but with normal glucose, 0 WBCs, and negative gram stain. He was initiated on antibiotic therapy with Vancomycin and Ceftriaxone, initiated on stress dosed steroids, hydrated, and admitted for further evaluation and treatment. This morning he appears back at his baseline mental status, and he has remained afebrile. He remains mildly tachycardic, and with continued elevation in lactate. His procalcitonin was checked and undetectable. Exam Narrative Exam Narrative: General: Patient appears comfortable,NAD. Awake , following commands, and answering questions appropriately. Appears at baseline mental status. Neck: Supple CV: Regular, nontachycardic, S1S2, No rubs, murmurs, or gallops. Pulmonary: Clear to auscultation bilaterally, no crackles, wheezing, or rhonchi Abdomen: + Bowel Sounds, soft, nontender, nondistended Vascular: No lower extremity edema Objective Objective Clinical Data: Abnormal lab results 03/24/19 03/24/19 03/24/19 Range/Units 13:00 17:00 18:25 WBC (4.4-10.8) k/cumm Hgb (13.5-17.5) g/dL Hct (40.0-50.0) % MCV (80-95) fL MCH (27.0-33.0) pg RDW (11.8-14.1) % Absolute Lymphocytes (1.2-3.4) k/cumm Sodium (136-145) mmol/L Chloride (98-107) mmol/L Anion Gap (3-11) mmol/L Glucose (70-100) mg/dL Lactate 2.5 H* (0.6-1.4) mmol/L Calcium (8.5-10.1) mg/dL AST (15-37) U/L ALT (16-63) U/L CSF Total Protein 98 H (15-45) mg/dL Ur Tricyclics Screen Positive A (Negative) Ur THC Screen Positive A (Negative) 03/25/19 03/25/19 03/25/19 Range/Units 07:15 07:15 07:20 WBC 3.62 L (4.4-10.8) k/cumm Hgb 12.9 L (13.5-17.5) g/dL Hct 39.2 L (40.0-50.0) % MCV 79.2 L (80-95) fL MCH 26.1 L (27.0-33.0) pg RDW 14.9 H (11.8-14.1) % Absolute Lymphocytes 0.58 L (1.2-3.4) k/cumm Sodium 149 H D (136-145) mmol/L Chloride 113 H (98-107) mmol/L Anion Gap 14.4 H (3-11) mmol/L Glucose 179 H (70-100) mg/dL Lactate 3.2 H* (0.6-1.4) mmol/L Calcium 8.3 L (8.5-10.1) mg/dL AST 39 H (15-37) U/L ALT 99 H (16-63) U/L CSF Total Protein (15-45) mg/dL Ur Tricyclics Screen (Negative) Ur THC Screen (Negative) 03/25/19 Range/Units 12:43 WBC (4.4-10.8) k/cumm Hgb (13.5-17.5) g/dL Hct (40.0-50.0) % MCV (80-95) fL MCH (27.0-33.0) pg RDW (11.8-14.1) % Absolute Lymphocytes (1.2-3.4) k/cumm Sodium (136-145) mmol/L Chloride (98-107) mmol/L Anion Gap (3-11) mmol/L Glucose (70-100) mg/dL Lactate 2.8 H* (0.6-1.4) mmol/L Calcium (8.5-10.1) mg/dL AST (15-37) U/L ALT (16-63) U/L CSF Total Protein (15-45) mg/dL Ur Tricyclics Screen (Negative) Ur THC Screen (Negative) Vital Signs Temperature 37.3 C 03/25/19 11:45 Temperature Source Temporal Artery Scan 03/25/19 11:45 Pulse 105 H 03/25/19 08:34 Pulse 108 H 03/25/19 08:02 Respiratory Rate 16 03/25/19 08:34 Respiratory Effort 03/25/19 11:45 Respiratory Depth Normal 03/25/19 11:45 Respiratory Pattern Normal 03/25/19 11:45 Blood Pressure 113/65 03/25/19 11:45 Blood Pressure Mean 81 03/25/19 11:45 Blood Pressure Position Supine 03/25/19 11:45 Pulse Oximetry 95 03/25/19 08:34 Respiratory End-tidal CO2 32 03/24/19 16:44 Oxygen Delivery Method Room Air 03/25/19 11:45 Oxygen Flow Rate 0 03/25/19 11:45 Pain Level 0 03/25/19 11:45 Comment 03/24/19 23:00 Intake & Output 03/24/19 03/25/19 03/25/19 23:59 11:59 23:59 Intake Total 1650 / 1650 3395 / 3395 Output Total 600 / 600 Balance 1050 / 1050 3395 / 3395 Weight 80.5 kg 80.5 kg Intake: IV 650 / 650 1805 / 1805 Oral 1000 / 1000 1590 / 1590 Output: Urine 600 / 600 Other: Urine Odor None None Comment Unable to measure urine output as Pt is continually incont of urine. Dr Kate is aware. Pt will not keep a depnds on let alone a urinary catheter. incontinent Voiding Methods Incontinent Incontinent Laboratory Results WBC 3.62 k/cumm (4.4-10.8) L 03/25/19 07:15 RBC 4.95 m/cumm (4.50-6.00) 03/25/19 07:15 Hgb 12.9 g/dL (13.5-17.5) L 03/25/19 07:15 Hct 39.2 % (40.0-50.0) L 03/25/19 07:15 MCV 79.2 fL (80-95) L 03/25/19 07:15 MCH 26.1 pg (27.0-33.0) L 03/25/19 07:15 MCHC 32.9 g/dL (32.0-36.0) 03/25/19 07:15 RDW 14.9 % (11.8-14.1) H 03/25/19 07:15 Plt Count 229 x1000/uL (130-400) 03/25/19 07:15 MPV 9.7 fL (8.0-11.0) 03/25/19 07:15 Immature Gran % 1.1 03/25/19 07:15 Neutrophils % 77.6 03/25/19 07:15 Band Neutrophils % 9.0 % 03/24/19 11:52 Lymphocytes % 16.0 03/25/19 07:15 Atypical Lymphs % 2 03/24/19 11:52 Monocytes % 5.0 03/25/19 07:15 Eosinophils % 0.0 03/25/19 07:15 Basophils % 0.3 03/25/19 07:15 Metamyelocytes % 1.0 % 03/24/19 11:52 Absolute Neutrophils 2.81 k/cumm (1.2-6.7) 03/25/19 07:15 Absolute Lymphocytes 0.58 k/cumm (1.2-3.4) L 03/25/19 07:15 Absolute Monocytes 0.18 k/cumm (0.11-0.7) 03/25/19 07:15 Absolute Eosinophils 0.00 k/cumm (0.0-0.7) 03/25/19 07:15 Absolute Basophils 0.01 k/cumm (0.0-0.2) 03/25/19 07:15 Differential Comment Manual differential 03/24/19 11:52 RBC Morphology See below 03/24/19 11:52 Polychromasia Present 03/24/19 11:52 Xanthochromia Absent 03/24/19 17:00 Microcytosis 1+ 03/24/19 11:52 Sodium 149 mmol/L (136-145) H D 03/25/19 07:15 Potassium 3.8 mmol/L (3.5-5.1) 03/25/19 07:15 Chloride 113 mmol/L (98-107) H 03/25/19 07:15 Carbon Dioxide 21.6 mmol/L (21.0-32.0) 03/25/19 07:15 Anion Gap 14.4 mmol/L (3-11) H 03/25/19 07:15 BUN 12 mg/dL (7-18) 03/25/19 07:15 Creatinine 1.12 mg/dL (0.70-1.30) 03/25/19 07:15 Estimated GFR/1.73 m2 >= 60.00 (mL/min/1.73m2) 03/25/19 07:15 Glucose 179 mg/dL (70-100) H 03/25/19 07:15 Lactate 2.8 mmol/L (0.6-1.4) H* 03/25/19 12:43 Calcium 8.3 mg/dL (8.5-10.1) L 03/25/19 07:15 Total Bilirubin 0.4 mg/dL (0.2-1.0) 03/25/19 07:15 AST 39 U/L (15-37) H 03/25/19 07:15 ALT 99 U/L (16-63) H 03/25/19 07:15 Alkaline Phosphatase 116 U/L (46-116) 03/25/19 07:15 Total Protein 7.1 g/dL (6.4-8.2) 03/25/19 07:15 Albumin 3.4 g/dL (3.4-5.0) 03/25/19 07:15 Procalcitonin < 0.1 ng/mL 03/25/19 07:20 Urine Color Yellow (Yellow) 03/24/19 13:00 Urine Clarity Clear (Clear) 03/24/19 13:00 Urine pH 6.5 (5-8) 03/24/19 13:00 Ur Specific [place] 1.010 (1.005-1.025) 03/24/19 13:00 Urine Protein Negative mg/dL (Negative) 03/24/19 13:00 Urine Ketones Negative mg/dL (Negative) 03/24/19 13:00 Urine Blood Negative (Negative) 03/24/19 13:00 Urine Nitrite Negative (Negative) 03/24/19 13:00 Urine Bilirubin Negative (Negative) 03/24/19 13:00 Urine Urobilinogen 0.2 EU/dL (Up TO 0.2) 03/24/19 13:00 Ur Leukocyte Esterase Negative (Negative) 03/24/19 13:00 Urine Glucose Negative mg/dL (Negative) 03/24/19 13:00 CSF Tube Number 4 03/24/19 17:00 CSF Color Colorless 03/24/19 17:00 CSF Clarity Clear 03/24/19 17:00 CSF WBC 0 /mm3 (0-5) 03/24/19 17:00 CSF RBC 2 /mm3 (0-5) 03/24/19 17:00 CSF Diff Comment 03/24/19 17:00 CSF Glucose 62 mg/dL (40-70) 03/24/19 17:00 CSF Total Protein 98 mg/dL (15-45) H 03/24/19 17:00 Urine Opiates Screen Negative (Negative) 03/24/19 13:00 Urine Methadone Screen Negative (Negative) 03/24/19 13:00 Ur Barbiturates Screen Negative (Negative) 03/24/19 13:00 Ur Tricyclics Screen Positive (Negative) A 03/24/19 13:00 Ur Amphetamines Screen Negative (Negative) 03/24/19 13:00 U Benzodiazepines Scrn Negative (Negative) 03/24/19 13:00 Urine Cocaine Screen Negative (Negative) 03/24/19 13:00 Ur THC Screen Positive (Negative) A 03/24/19 13:00
--- NOTE | 2019-03-25 15:13 | CHAPLAIN ---
I introduced myself to Miguel Angel and two of his caregivers who were with him, explained my role and offered support.
[2019-03-25 16:19] LABS: Lactate 2.3 mmol/L (0.6-1.4)
[2019-03-25 16:27] LABS: Sodium 149 mmol/L (136-145)
[2019-03-25] MEDS: traZODone 100 MG TAB 200 MG PO (19:33)
[2019-03-25] MEDS: Zonisamide 100 MG CAP 200 MG PO (19:33)
[2019-03-25] MEDS: Melatonin 3 MG TAB 9 MG PO (21:13)
[2019-03-26] VITALS (10 sets, daily range): BP systolic 109–136; BP diastolic 61–85; PULSE 48–81; RESP 13–20; TEMP 35.9–36.8; O2SAT 95–99
[2019-03-26] MEDS: AMPICILLIN SODIUM 2 GM in Normal Saline 100 ML IVPB ×3 (02:25→10:38)
[2019-03-26] MEDS: Levothyroxine 200 MCG TAB PO (06:36)
[2019-03-26] MEDS: Levothyroxine 25 MCG TAB PO (06:37)
[2019-03-26] MEDS: cefTRIAXone 2 GM/50 ML BAG IVPB (07:14)
[2019-03-26 07:39] LABS: Abs Immature Grans 0.04 k/cumm (0.0-0.09); Absolute Basophil Count 0.01 k/cumm (0.0-0.2); Absolute Lymphocyte Count 0.99 k/cumm (1.2-3.4); Absolute Monocyte Count 0.61 k/cumm (0.11-0.7); Absolute Neutrophil Count 4.85 k/cumm (1.2-6.7); Basophils % 0.2; HCT 38.8 % (40.0-50.0); HGB 12.5 g/dL (13.5-17.5); Immature Grans % 0.6; Lymphocytes % 15.2; Mean Corp. HGB Concentration 32.2 g/dL (32.0-36.0); Mean Corpuscular Hemoglobin 26.1 pg (27.0-33.0); Mean Platelet Volume 9.8 fL (8.0-11.0); Monocytes % 9.4; Neutrophils % 74.6; Platelet Count 227 x1000/uL (130-400); RBC 4.79 m/cumm (4.50-6.00); RBC Distribution Width 15.7 % (11.8-14.1)
[2019-03-26 07:49] LABS: ALT 85 U/L (16-63); AST 24 U/L (15-37); Albumin 3.3 g/dL (3.4-5.0); Alkaline Phosphatase 104 U/L (46-116); BUN 11 mg/dL (7-18); Bilirubin, Total 0.3 mg/dL (0.2-1.0); CREATININE 0.81 mg/dL (0.70-1.30); Calcium 8.1 mg/dL (8.5-10.1); Chloride 115 mmol/L (98-107); Glucose 131 mg/dL (70-100); Magnesium 2.1 mg/dL (1.8-2.4); Potassium 3.9 mmol/L (3.5-5.1); Sodium 149 mmol/L (136-145); Total Protein 6.8 g/dL (6.4-8.2)
[2019-03-26] MEDS: levETIRAcetam 500 MG in Normal Saline 100 ML 400 MG IVPB ×2 (08:11→18:10)
[2019-03-26] MEDS: Atorvastatin 40 MG TAB PO (08:39)
[2019-03-26] MEDS: Baclofen 10 MG TAB 20 MG PO ×3 (08:39→20:03)
[2019-03-26] MEDS: Metoprolol CR 25 MG TABCR 75 MG PO (08:39)
[2019-03-26] MEDS: Aspirin E.C. 81 MG TABEC PO (08:39)
[2019-03-26] MEDS: Cholecalciferol (Vitamin D3) 1,000 UNIT TAB 1000 UNITS PO (08:39)
[2019-03-26] MEDS: Calcium Carbonate *TUMS* 500 MG CHEW 250 MG PO (08:39)
[2019-03-26] MEDS: Omeprazole 20 MG CAPCR 40 MG PO (08:39)
[2019-03-26] MEDS: Magnesium Oxide 400 MG TAB 200 MG PO ×2 (08:40→20:03)
[2019-03-26] MEDS: TESTOSTERONE 3 EACH TP (08:42)
[2019-03-26] MEDS: Hydrocortisone 10 MG TAB 50 MG PO (09:12)
[2019-03-26] MEDS: Potassium Chloride 10 MEQ TABCR PO (09:12)
--- NOTE | 2019-03-26 12:36 | PGE_ITS ---
Date of Service Date of service: 03/26/19 Time of Service: 12:37 Assessment and Plan Assessment and plan (1) Acute febrile illness: Status: Acute Assessment and plan: In discussion with caregivers, it appears that a viral illness has been spreading through the patient's skilled nursing. - CSF with isolated mild elevation in protein, but with normal glucose, clear, and 0 WBCs. Current blood and CSF cultures remain negative. Not meningeal by exam. - Urinalysis negative, CXR without pathology, and serology/CSF for Lyme and [place] are pending. Lactate however remains elevated - repeat this afternoon. Likely etiology for patient's fever is a viral illness, with change in mental status likely due to adrenal insufficiency and need for stress dosed steroids. Continue to monitor culture results, but discontinue antibiotics. Plan is to taper with IV Steroids over the next 24 hours and monitor temperature and mental status off antibiotics, and if appropriate then discharge home tomorrow. (2) Altered mental status: Status: Acute Assessment and plan: As above. Qualifiers: Altered mental status type: transient alteration of awareness Qualified Code(s): R40.4 - Transient alteration of awareness (3) Panhypopituitarism: Status: Chronic Assessment and plan: - FT4 previously normal - continue replacement therapy. - Current Hypernatremia likely result of missed Desmopressin dose and decreased fluid intake - continue home regimen. Patient is back to his prescribed 3.5 L fluid intake. Hypernatremia is mild and stable - repeat sodium values later this afternoon. - Stress dose steroids with plans to return to home dosing of hydrocortisone - plan on 25mg IV BID for one day, then 25mg PO BID for 2-3 days, then back to baseline per discussion today with Endocrinology at [facility]. (4) DVT prophylaxis: Status: Acute Assessment and plan: Ensure SCDs/TEDs. No chemical prophylaxis given following LP. Subjective Subjective Interval history since last seen: 28 year old patient with a prior history of Panhypopituitarism following a remote tumor resection, readmitted from [facility] Emergency Department on 03/24 secondary to an altered mental status along with findings of fever. Mr. 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 Other history includes chronic leg cramps, Urinary retention, and GERD. The patient lives in a skilled nursing with caretakers, and was brought in on the morning of 03/21 found to be lethargic and difficult to arouse. His work-up was entirely negative, including labwork and imaging, as the patient's mental status rapidly improved overnight and his UDS was positive for THC it was assumed that perhaps an inadvertent ingestion of a THC containing substance could have been responsible for his symptoms. Following a discussion with the patient's Generating Station Mechanic he was discharged home on his regular home regimen of medications - of note, he was initially stress dosed with steroids following admission. The patient returned to the ED on 03/24 with recurrence of lethargy, this time found to be febrile with a temperature of 39.6. Repeat infectious work-up was again negative, and this time included a Lumbar Puncture. Labwork was remarkable for an elevated Lactate, and CSF showed an elevation in protein, but with normal glucose, 0 WBCs, and negative gram stain. He was initiated on antibiotic therapy with Vancomycin and Ceftriaxone, initiated on stress dosed steroids, hydrated, and admitted for further evaluation and treatment. This morning he continues to appear back at his baseline mental status, and he has remained afebrile since admission. He is no longer tachycardic, and blood pressure is esential normal. His procalcitonin was checked and undetectable. No overnight events reported. Remains afebrile. Exam Narrative Exam Narrative: General: Patient appears comfortable,NAD. Awake , following commands, and answering questions appropriately. Appears at baseline mental status. Neck: Supple CV: Regular, nontachycardic, S1S2, No rubs, murmurs, or gallops. Pulmonary: Clear to auscultation bilaterally, no crackles, wheezing, or rhonchi Abdomen: + Bowel Sounds, soft, nontender, nondistended Vascular: No lower extremity edema Objective Objective Clinical Data: Abnormal lab results 03/25/19 03/25/19 03/25/19 Range/Units 12:43 16:06 16:06 Hgb (13.5-17.5) g/dL Hct (40.0-50.0) % MCH (27.0-33.0) pg RDW (11.8-14.1) % Absolute Lymphocytes (1.2-3.4) k/cumm Sodium 149 H (136-145) mmol/L Chloride (98-107) mmol/L Glucose (70-100) mg/dL Lactate 2.8 H* 2.3 H* (0.6-1.4) mmol/L Calcium (8.5-10.1) mg/dL ALT (16-63) U/L Albumin (3.4-5.0) g/dL 03/26/19 03/26/19 Range/Units 07:05 07:05 Hgb 12.5 L (13.5-17.5) g/dL Hct 38.8 L (40.0-50.0) % MCH 26.1 L (27.0-33.0) pg RDW 15.7 H (11.8-14.1) % Absolute Lymphocytes 0.99 L (1.2-3.4) k/cumm Sodium 149 H (136-145) mmol/L Chloride 115 H (98-107) mmol/L Glucose 131 H (70-100) mg/dL Lactate (0.6-1.4) mmol/L Calcium 8.1 L (8.5-10.1) mg/dL ALT 85 H (16-63) U/L Albumin 3.3 L (3.4-5.0) g/dL Vital Signs Temperature 36.3 C L 03/26/19 10:58 Temperature Source Temporal Artery Scan 03/26/19 10:58 Pulse 49 L 03/26/19 07:44 Pulse 57 L 03/26/19 07:44 Respiratory Rate 13 03/26/19 07:45 Respiratory Effort 03/26/19 07:45 Respiratory Depth Normal 03/26/19 07:45 Respiratory Pattern Normal 03/26/19 07:45 Blood Pressure 113/63 03/26/19 07:44 Blood Pressure Mean 76 03/26/19 07:44 Blood Pressure Position Supine 03/26/19 07:45 Pulse Oximetry 99 03/26/19 07:45 Respiratory End-tidal CO2 32 03/24/19 16:44 Oxygen Delivery Method Room Air 03/26/19 10:58 Oxygen Flow Rate 0 03/26/19 10:58 Pain Level 0 03/26/19 07:45 Comment 03/24/19 23:00 Intake & Output 03/25/19 03/26/19 03/26/19 23:59 11:59 23:59 Intake Total 3395 / 6790 1405 / 1405 Output Total 500 / 500 175 / 175 Balance 2895 / 6290 1230 / 1230 Weight 88.4 kg Intake: IV 1355 / 3160 1155 / 1155 Oral 2040 / 3630 250 / 250 Output: Urine 500 / 500 175 / 175 Other: Urine Color Yellow Urine Appearance Clear Urine Odor None Comment mixed with urine Large void: incontinence. Stool Size Large Stool Characteristics Soft Formed Voiding Methods Urinal Laboratory Results WBC 6.50 k/cumm (4.4-10.8) D 03/26/19 07:05 RBC 4.79 m/cumm (4.50-6.00) 03/26/19 07:05 Hgb 12.5 g/dL (13.5-17.5) L 03/26/19 07:05 Hct 38.8 % (40.0-50.0) L 03/26/19 07:05 MCV 81.0 fL (80-95) 03/26/19 07:05 MCH 26.1 pg (27.0-33.0) L 03/26/19 07:05 MCHC 32.2 g/dL (32.0-36.0) 03/26/19 07:05 RDW 15.7 % (11.8-14.1) H 03/26/19 07:05 Plt Count 227 x1000/uL (130-400) 03/26/19 07:05 MPV 9.8 fL (8.0-11.0) 03/26/19 07:05 Immature Gran % 0.6 03/26/19 07:05 Neutrophils % 74.6 03/26/19 07:05 Band Neutrophils % 9.0 % 03/24/19 11:52 Lymphocytes % 15.2 03/26/19 07:05 Atypical Lymphs % 2 03/24/19 11:52 Monocytes % 9.4 03/26/19 07:05 Eosinophils % 0.0 03/26/19 07:05 Basophils % 0.2 03/26/19 07:05 Metamyelocytes % 1.0 % 03/24/19 11:52 Absolute Neutrophils 4.85 k/cumm (1.2-6.7) 03/26/19 07:05 Absolute Lymphocytes 0.99 k/cumm (1.2-3.4) L 03/26/19 07:05 Absolute Monocytes 0.61 k/cumm (0.11-0.7) 03/26/19 07:05 Absolute Eosinophils 0.00 k/cumm (0.0-0.7) 03/26/19 07:05 Absolute Basophils 0.01 k/cumm (0.0-0.2) 03/26/19 07:05 Differential Comment Manual differential 03/24/19 11:52 RBC Morphology See below 03/24/19 11:52 Polychromasia Present 03/24/19 11:52 Xanthochromia Absent 03/24/19 17:00 Microcytosis 1+ 03/24/19 11:52 Sodium 149 mmol/L (136-145) H 03/26/19 07:05 Potassium 3.9 mmol/L (3.5-5.1) 03/26/19 07:05 Chloride 115 mmol/L (98-107) H 03/26/19 07:05 Carbon Dioxide 24.0 mmol/L (21.0-32.0) 03/26/19 07:05 Anion Gap 10.0 mmol/L (3-11) 03/26/19 07:05 BUN 11 mg/dL (7-18) 03/26/19 07:05 Creatinine 0.81 mg/dL (0.70-1.30) 03/26/19 07:05 Estimated GFR/1.73 m2 >= 60.00 (mL/min/1.73m2) 03/26/19 07:05 Glucose 131 mg/dL (70-100) H 03/26/19 07:05 Lactate 2.3 mmol/L (0.6-1.4) H* 03/25/19 16:06 Calcium 8.1 mg/dL (8.5-10.1) L 03/26/19 07:05 Magnesium 2.1 mg/dL (1.8-2.4) 03/26/19 07:05 Total Bilirubin 0.3 mg/dL (0.2-1.0) 03/26/19 07:05 AST 24 U/L (15-37) 03/26/19 07:05 ALT 85 U/L (16-63) H 03/26/19 07:05 Alkaline Phosphatase 104 U/L (46-116) 03/26/19 07:05 Total Protein 6.8 g/dL (6.4-8.2) 03/26/19 07:05 Albumin 3.3 g/dL (3.4-5.0) L 03/26/19 07:05 Procalcitonin < 0.1 ng/mL 03/25/19 07:20 Urine Color Yellow (Yellow) 03/24/19 13:00 Urine Clarity Clear (Clear) 03/24/19 13:00 Urine pH 6.5 (5-8) 03/24/19 13:00 Ur Specific [place] 1.010 (1.005-1.025) 03/24/19 13:00 Urine Protein Negative mg/dL (Negative) 03/24/19 13:00 Urine Ketones Negative mg/dL (Negative) 03/24/19 13:00 Urine Blood Negative (Negative) 03/24/19 13:00 Urine Nitrite Negative (Negative) 03/24/19 13:00 Urine Bilirubin Negative (Negative) 03/24/19 13:00 Urine Urobilinogen 0.2 EU/dL (Up TO 0.2) 03/24/19 13:00 Ur Leukocyte Esterase Negative (Negative) 03/24/19 13:00 Urine Glucose Negative mg/dL (Negative) 03/24/19 13:00 CSF Tube Number 4 03/24/19 17:00 CSF Color Colorless 03/24/19 17:00 CSF Clarity Clear 03/24/19 17:00 CSF WBC 0 /mm3 (0-5) 03/24/19 17:00 CSF RBC 2 /mm3 (0-5) 03/24/19 17:00 CSF Diff Comment 03/24/19 17:00 CSF Glucose 62 mg/dL (40-70) 03/24/19 17:00 CSF Total Protein 98 mg/dL (15-45) H 03/24/19 17:00 Urine Opiates Screen Negative (Negative) 03/24/19 13:00 Urine Methadone Screen Negative (Negative) 03/24/19 13:00 Ur Barbiturates Screen Negative (Negative) 03/24/19 13:00 Ur Tricyclics Screen Positive (Negative) A 03/24/19 13:00 Ur Amphetamines Screen Negative (Negative) 03/24/19 13:00 U Benzodiazepines Scrn Negative (Negative) 03/24/19 13:00 Urine Cocaine Screen Negative (Negative) 03/24/19 13:00 Ur THC Screen Positive (Negative) A 03/24/19 13:00
[2019-03-26] MEDS: LORazepam 0.5 MG TAB PO ×2 (12:53→20:02)
[2019-03-26] MEDS: Normal Saline Flush 10 ML SYR IVP ×2 (13:18→20:00)
--- NOTE | 2019-03-26 16:12 | PHARADMIT ---
Admission Pharmacy Clinical Review Code Status Full Code Current Weight 88.4 kg Renally Cleared and Narrow Therapeutic Index Meds CrCl ~109 ml/min QTc Value / Action Taken BP Control, Fever BP 113/63 Electrolytes reviewed Na 149, K+ 3.9, Mag 2.1 DVT Prophylaxis None Opiate Usage / Scheduled Bowel Regimen Ordered Plt/SCr for Heparin / Enoxaparin Plt 227, SCr 0.81 INR for Warfarin H/H stable, WBC/Bands H/H 12.5/38.8 WBC 6.5 Antibiotic appropriateness Empiric coverage DC'd to no culture growth Cultures and Sensitivities No growth Surgical ABX d/c within 24 hr DM control / Insulin Dosing Heart Failure (Check EF%) (NADEEM's, B-Block, Diuretics) Metoprolol IV to PO Switch Home Meds Reviewed Yes, all ok Home Meds Not Ordered Ferrous gluconate, quetiapine prn Comments Febrile illness likely due to viral illness that has been spreading through patient's senior care, change in mental status likely due to adrenal insufficiency
[2019-03-26 17:05] LABS: Lactate 1.4 mmol/L (0.6-1.4)
[2019-03-26 17:10] LABS: Sodium 143 mmol/L (136-145)
--- NOTE | 2019-03-26 18:15 | CMPROGNOTE_ITS ---
- If Service Date Differs Date of service: 03/26/19 Time of Service: 18:15 Care Management Progress Note S/O: Miguel Angel remains in the ICU anticipate he will be transition to the medical surgical unit today. IV antibiotics were stopped and he is being monitored for fever's. A: Miguel Angel is a 28 year old male readmitted with fever. P; Miguel Angel will to return to his apartment in [facility] with caregivers when medically ready. He will be transported via private car transported by caregivers at time of discharge.
[2019-03-26] MEDS: Zonisamide 100 MG CAP 200 MG PO (20:02)
[2019-03-26] MEDS: Hydrocortisone 10 MG TAB 25 MG PO (20:02)
[2019-03-26] MEDS: traZODone 100 MG TAB 200 MG PO (20:02)
[2019-03-26 20:30] LABS: Specimen Source CSF; West Nile Virus PCR Negative (Negative)
[2019-03-26] MEDS: Melatonin 3 MG TAB 9 MG PO (22:01)
[2019-03-26 22:31] LABS: Specimen Source CSF
[2019-03-27] VITALS (9 sets, daily range): BP systolic 113–134; BP diastolic 63–84; PULSE 63–92; RESP 4–20; TEMP 36–36.6; O2SAT 96–99
[2019-03-27] MEDS: levETIRAcetam 500 MG in Normal Saline 100 ML 400 MG IVPB (06:37)
[2019-03-27] MEDS: Normal Saline Flush 10 ML SYR IVP (06:39)
[2019-03-27] MEDS: Levothyroxine 200 MCG TAB PO (06:39)
[2019-03-27] MEDS: Levothyroxine 25 MCG TAB PO (06:39)
[2019-03-27 08:07] LABS: Abs Immature Grans 0.08 k/cumm (0.0-0.09); Absolute Basophil Count 0.01 k/cumm (0.0-0.2); Absolute Eosinophil Count 0.05 k/cumm (0.0-0.7); Absolute Lymphocyte Count 1.54 k/cumm (1.2-3.4); Absolute Monocyte Count 0.77 k/cumm (0.11-0.7); Absolute Neutrophil Count 3.81 k/cumm (1.2-6.7); Basophils % 0.2; Eosinophils % 0.8; HCT 39.2 % (40.0-50.0); HGB 12.7 g/dL (13.5-17.5); Immature Grans % 1.3; Lymphocytes % 24.6; Mean Corp. HGB Concentration 32.4 g/dL (32.0-36.0); Mean Corpuscular Hemoglobin 26.1 pg (27.0-33.0); Mean Corpuscular Volume 80.7 fL (80-95); Mean Platelet Volume 9.5 fL (8.0-11.0); Monocytes % 12.3; Neutrophils % 60.8; Platelet Count 219 x1000/uL (130-400); RBC 4.86 m/cumm (4.50-6.00); RBC Distribution Width 15.6 % (11.8-14.1); White Blood Cell Count 6.26 k/cumm (4.4-10.8)
[2019-03-27 08:22] LABS: ALT 121 U/L (16-63); AST 38 U/L (15-37); Albumin 3.3 g/dL (3.4-5.0); Alkaline Phosphatase 97 U/L (46-116); Anion Gap 9.5 mmol/L (3-11); BUN 12 mg/dL (7-18); Bilirubin, Total 0.4 mg/dL (0.2-1.0); CO2 23.5 mmol/L (21.0-32.0); CREATININE 0.84 mg/dL (0.70-1.30); Chloride 113 mmol/L (98-107); Glucose 83 mg/dL (70-100); Magnesium 2.1 mg/dL (1.8-2.4); Sodium 146 mmol/L (136-145); Total Protein 6.5 g/dL (6.4-8.2)
[2019-03-27] MEDS: TESTOSTERONE 3 EACH TP (08:38)
[2019-03-27] MEDS: Magnesium Oxide 400 MG TAB 200 MG PO ×2 (08:38→19:53)
[2019-03-27] MEDS: Aspirin E.C. 81 MG TABEC PO (08:39)
[2019-03-27] MEDS: Hydrocortisone 10 MG TAB 25 MG PO ×2 (08:39→19:53)
[2019-03-27] MEDS: Metoprolol CR 25 MG TABCR 75 MG PO (08:39)
[2019-03-27] MEDS: Sennosides/Docusate Sodium TAB 1 TAB PO ×2 (08:40→19:53)
[2019-03-27] MEDS: Calcium Carbonate *TUMS* 500 MG CHEW 250 MG PO (08:40)
[2019-03-27] MEDS: Cholecalciferol (Vitamin D3) 1,000 UNIT TAB 1000 UNITS PO (08:40)
[2019-03-27] MEDS: Atorvastatin 40 MG TAB PO (08:40)
[2019-03-27] MEDS: Baclofen 10 MG TAB 20 MG PO ×3 (08:40→19:53)
[2019-03-27] MEDS: Omeprazole 20 MG CAPCR 40 MG PO (08:41)
--- NOTE | 2019-03-27 11:55 | DI.RAD_ITS ---
EXAM: XR PORTABLE CHEST AP INDICATION: wheezing - new. COMPARISON: XR CHEST 2V PA LATERAL from 03/24/2019 TECHNIQUE: 2D digital imaging was performed. FINDINGS: The lungs are free of infiltrate. There is no evidence of a pleural effusion or pneumothorax. Heart i s not enlarged. The mediastinum and tracheal air column appear intact. IMPRESSION: No evidence of acute cardiopulmonary disease.
[2019-03-27] MEDS: Albuterol/Ipratropium 3 ML UPD VIAL UPD (12:18)
--- NOTE | 2019-03-27 12:35 | DI.VRAD_ITS ---
PROCEDURE INFORMATION: Exam: XR Chest, 1 View Exam date and time: 03/27/2019 11:58 AM Clinical history: 28 years old, male; Other: Wheezing -new TECHNIQUE: Imaging protocol: XR of the chest Views: 1 view. COMPARISON: CR XR CHEST 2V PA LATERAL 03/24/2019 1:46 PM FINDINGS: Lungs: Unremarkable. No consolidation. Pleural space: Unremarkable. No pleural effusion. No pneumothorax. Heart/Mediastinum: Unremarkable. No cardiomegaly. Bones/joints: Unremarkable. IMPRESSION: No acute findings. Dictated and Authenticated by: Marino Lepe MD. Ordering:GILDARDO Thorpe MD
--- NOTE | 2019-03-27 14:18 | PGE_ITS ---
Date of Service Date of service: 03/27/19 Time of Service: 14:18 Assessment and Plan Assessment and plan (1) Wheezing: Status: Acute Assessment and plan: I suspect this is due to mild fluid overload. Will trial a small dose of lasix today and reassess in am. He might have some restrictive lung disease as well - consider outpatient workup. (2) Acute febrile illness: Status: Acute Assessment and plan: Likely a component of acute on chronic adrenal insufficiency due to an acute viral infection. Behaviorally and clinically now at his baseline, with the exception of wheezing. No longer on antibiotics. Steroids are being weaned. Monitor overnight with plans to discharge home tomorrow. (3) Altered mental status: Status: Resolved Assessment and plan: Toxic metabolic encephalopathy in setting of acute adrenal insufficiency. Resolved. Qualifiers: Altered mental status type: transient alteration of awareness Qualified Code(s): R40.4 - Transient alteration of awareness (4) Panhypopituitarism: Status: Chronic Assessment and plan: -continue synthroid, desmopressin, hydrocortisone taper. (5) Discharge planning issues: Status: Acute Assessment and plan: Plan for discharge home tomorrow (6) DVT prophylaxis: Status: Acute Assessment and plan: SCDs/TEDs. No chemical prophylaxis given following LP. Subjective Subjective Interval history since last seen: Nursing reports that the patient has been quite wheezy today. I spoke with his caretakers at the bedside - they know him from home - he does not normally breathe like this. He can do this when he gets excited, but his overall breathing pattern today has been different from his normal. He has not been coughing. The wheezing resolved with a nebulizer treatment. The patient does not have a nebulizer machine at home and the caretakers don't know how he would do with an inhaler. The patient himself is able to tell me he does not feel short of breath. Exam Narrative Exam Narrative: General: Obese male, initially rocking in bed and audibly wheezing, answering some questions with short answers, not answering others HEENT: eyes closed, MMM Heart: RRR, no m/r/g Lungs: wheezing on expiration B (?upper airway) GI: abdomen is soft, nontender, nondistended Extremities: trace edema (symmetric) Objective Objective Clinical Data: Abnormal lab results 03/27/19 03/27/19 Range/Units 07:56 07:56 Hgb 12.7 L (13.5-17.5) g/dL Hct 39.2 L (40.0-50.0) % MCH 26.1 L (27.0-33.0) pg RDW 15.6 H (11.8-14.1) % Absolute Monocytes 0.77 H (0.11-0.7) k/cumm Sodium 146 H (136-145) mmol/L Chloride 113 H (98-107) mmol/L Calcium 8.0 L (8.5-10.1) mg/dL AST 38 H (15-37) U/L ALT 121 H (16-63) U/L Albumin 3.3 L (3.4-5.0) g/dL Vital Signs Temperature 36.4 C L 03/27/19 12:32 Temperature Source Tympanic 03/27/19 12:32 Pulse 78 03/27/19 12:32 Pulse Rhythm Regular 03/27/19 08:35 Pulse 57 L 03/26/19 07:44 Respiratory Rate 18 03/27/19 12:32 Respiratory Effort 03/27/19 08:35 Respiratory Depth Normal 03/27/19 08:35 Respiratory Pattern Normal 03/27/19 08:35 Blood Pressure 114/84 03/27/19 12:32 Blood Pressure Mean 98 03/26/19 15:34 Blood Pressure Position Supine 03/26/19 11:58 Pulse Oximetry 98 03/27/19 12:32 Respiratory End-tidal CO2 32 03/24/19 16:44 Oxygen Delivery Method Room Air 03/27/19 12:32 Oxygen Flow Rate 0 03/27/19 12:32 Pain Level 0 03/27/19 12:32 Comment 03/27/19 09:00 Intake & Output 03/26/19 03/27/19 03/27/19 23:59 11:59 23:59 Intake Total 1285 / 3050 275 / 275 Output Total 700 / 875 100 / 100 Balance 585 / 2175 175 / 175 Weight 88.8 kg Intake: IV 125 / 1280 105 / 105 Oral 1160 / 1770 170 / 170 Output: Urine 700 / 875 100 / 100 Other: Urine Color Yellow Yellow Urine Appearance Clear Clear Urine Odor Normal Normal Comment Patient will not tolerate morse catheter Stool Size Large Moderate Stool Characteristics Soft Soft Formed Voiding Methods Urinal Toilet Incontinent Laboratory Results WBC 6.26 k/cumm (4.4-10.8) 03/27/19 07:56 RBC 4.86 m/cumm (4.50-6.00) 03/27/19 07:56 Hgb 12.7 g/dL (13.5-17.5) L 03/27/19 07:56 Hct 39.2 % (40.0-50.0) L 03/27/19 07:56 MCV 80.7 fL (80-95) 03/27/19 07:56 MCH 26.1 pg (27.0-33.0) L 03/27/19 07:56 MCHC 32.4 g/dL (32.0-36.0) 03/27/19 07:56 RDW 15.6 % (11.8-14.1) H 03/27/19 07:56 Plt Count 219 x1000/uL (130-400) 03/27/19 07:56 MPV 9.5 fL (8.0-11.0) 03/27/19 07:56 Immature Gran % 1.3 03/27/19 07:56 Neutrophils % 60.8 03/27/19 07:56 Band Neutrophils % 9.0 % 03/24/19 11:52 Lymphocytes % 24.6 03/27/19 07:56 Atypical Lymphs % 2 03/24/19 11:52 Monocytes % 12.3 03/27/19 07:56 Eosinophils % 0.8 03/27/19 07:56 Basophils % 0.2 03/27/19 07:56 Metamyelocytes % 1.0 % 03/24/19 11:52 Absolute Neutrophils 3.81 k/cumm (1.2-6.7) 03/27/19 07:56 Absolute Lymphocytes 1.54 k/cumm (1.2-3.4) 03/27/19 07:56 Absolute Monocytes 0.77 k/cumm (0.11-0.7) H 03/27/19 07:56 Absolute Eosinophils 0.05 k/cumm (0.0-0.7) 03/27/19 07:56 Absolute Basophils 0.01 k/cumm (0.0-0.2) 03/27/19 07:56 Differential Comment Manual differential 03/24/19 11:52 RBC Morphology See below 03/24/19 11:52 Polychromasia Present 03/24/19 11:52 Xanthochromia Absent 03/24/19 17:00 Microcytosis 1+ 03/24/19 11:52 Sodium 146 mmol/L (136-145) H 03/27/19 07:56 Potassium 4.0 mmol/L (3.5-5.1) 03/27/19 07:56 Chloride 113 mmol/L (98-107) H 03/27/19 07:56 Carbon Dioxide 23.5 mmol/L (21.0-32.0) 03/27/19 07:56 Anion Gap 9.5 mmol/L (3-11) 03/27/19 07:56 BUN 12 mg/dL (7-18) 03/27/19 07:56 Creatinine 0.84 mg/dL (0.70-1.30) 03/27/19 07:56 Estimated GFR/1.73 m2 >= 60.00 (mL/min/1.73m2) 03/27/19 07:56 Glucose 83 mg/dL (70-100) 03/27/19 07:56 Lactate 1.4 mmol/L (0.6-1.4) 03/26/19 16:55 Calcium 8.0 mg/dL (8.5-10.1) L 03/27/19 07:56 Magnesium 2.1 mg/dL (1.8-2.4) 03/27/19 07:56 Total Bilirubin 0.4 mg/dL (0.2-1.0) 03/27/19 07:56 AST 38 U/L (15-37) H 03/27/19 07:56 ALT 121 U/L (16-63) H 03/27/19 07:56 Alkaline Phosphatase 97 U/L (46-116) 03/27/19 07:56 Total Protein 6.5 g/dL (6.4-8.2) 03/27/19 07:56 Albumin 3.3 g/dL (3.4-5.0) L 03/27/19 07:56 Procalcitonin < 0.1 ng/mL 03/25/19 07:20 Urine Color Yellow (Yellow) 03/24/19 13:00 Urine Clarity Clear (Clear) 03/24/19 13:00 Urine pH 6.5 (5-8) 03/24/19 13:00 Ur Specific [place] 1.010 (1.005-1.025) 03/24/19 13:00 Urine Protein Negative mg/dL (Negative) 03/24/19 13:00 Urine Ketones Negative mg/dL (Negative) 03/24/19 13:00 Urine Blood Negative (Negative) 03/24/19 13:00 Urine Nitrite Negative (Negative) 03/24/19 13:00 Urine Bilirubin Negative (Negative) 03/24/19 13:00 Urine Urobilinogen 0.2 EU/dL (Up TO 0.2) 03/24/19 13:00 Ur Leukocyte Esterase Negative (Negative) 03/24/19 13:00 Urine Glucose Negative mg/dL (Negative) 03/24/19 13:00 CSF Tube Number 4 03/24/19 17:00 CSF Color Colorless 03/24/19 17:00 CSF Clarity Clear 03/24/19 17:00 CSF WBC 0 /mm3 (0-5) 03/24/19 17:00 CSF RBC 2 /mm3 (0-5) 03/24/19 17:00 CSF Diff Comment 03/24/19 17:00 CSF Glucose 62 mg/dL (40-70) 03/24/19 17:00 CSF Total Protein 98 mg/dL (15-45) H 03/24/19 17:00 Vancomycin Trough Cancelled 03/27/19 07:00 Urine Opiates Screen Negative (Negative) 03/24/19 13:00 Urine Methadone Screen Negative (Negative) 03/24/19 13:00 Ur Barbiturates Screen Negative (Negative) 03/24/19 13:00 Ur Tricyclics Screen Positive (Negative) A 03/24/19 13:00 Ur Amphetamines Screen Negative (Negative) 03/24/19 13:00 U Benzodiazepines Scrn Negative (Negative) 03/24/19 13:00 Urine Cocaine Screen Negative (Negative) 03/24/19 13:00 Ur THC Screen Positive (Negative) A 03/24/19 13:00 CXR: preliminary radiology read: No acute findings. Per my read, there is evidence of mild fluid overload.
[2019-03-27] MEDS: Furosemide 20 MG TAB PO (14:25)
--- NOTE | 2019-03-27 15:57 | PDOC.CMPRO ---
- If Service Date Differs Date of service: 03/27/19 Time of Service: 15:57 Care Management Progress Note S/O: Miguel Angel has been transitioned to the medical surgical unit. IV antibiotics were stopped and he has remained afebrile. He experienced some mild wheezing this morning so will receive lasix and likely be discharged in the morning. Care givers in attendance. A: Miguel Angel is a 28 year old male readmitted with fever. P; Miguel Angel will to return to his apartment in [facility] with caregivers when medically ready. He will be transported via private car transported by caregivers at time of discharge. cc:
[2019-03-27] MEDS: traZODone 100 MG TAB 200 MG PO (19:52)
[2019-03-27] MEDS: levETIRAcetam 500 MG TAB PO (19:53)
[2019-03-27] MEDS: Zonisamide 100 MG CAP 200 MG PO (19:54)
[2019-03-27] MEDS: Melatonin 3 MG TAB 9 MG PO (21:40)
[2019-03-28 03:20] VITALS: BP 131/73; PULSE 77; RESP 18; TEMP 36.7; O2SAT 100
[2019-03-28] MEDS: Levothyroxine 200 MCG TAB PO (05:11)
[2019-03-28] MEDS: Levothyroxine 25 MCG TAB PO (05:13)
[2019-03-28 07:40] VITALS: BP 108/67; PULSE 56; RESP 19; TEMP 36.4; O2SAT 97
[2019-03-28 07:49] LABS: Abs Immature Grans 0.14 k/cumm (0.0-0.09); HCT 41.9 % (40.0-50.0); HGB 13.7 g/dL (13.5-17.5); Mean Corp. HGB Concentration 32.7 g/dL (32.0-36.0); Mean Corpuscular Hemoglobin 26.4 pg (27.0-33.0); Mean Corpuscular Volume 80.9 fL (80-95); Mean Platelet Volume 9.5 fL (8.0-11.0); Platelet Count 236 x1000/uL (130-400); RBC 5.18 m/cumm (4.50-6.00); RBC Distribution Width 15.7 % (11.8-14.1); White Blood Cell Count 6.36 k/cumm (4.4-10.8)
[2019-03-28 08:04] LABS: Anion Gap 8.9 mmol/L (3-11); BUN 13 mg/dL (7-18); CO2 25.1 mmol/L (21.0-32.0); CREATININE 0.84 mg/dL (0.70-1.30); Calcium 8.2 mg/dL (8.5-10.1); Chloride 113 mmol/L (98-107); Glucose 75 mg/dL (70-100); Magnesium 2.4 mg/dL (1.8-2.4); Potassium 4.1 mmol/L (3.5-5.1); Sodium 147 mmol/L (136-145)
[2019-03-28 08:22] LABS: Absolute Eosinophil Count 0.19 k/cumm (0.0-0.7); Absolute Lymphocyte Count 2.35 k/cumm (1.2-3.4); Absolute Monocyte Count 1.08 k/cumm (0.11-0.7); Absolute Neutrophil Count 2.54 k/cumm (1.2-6.7); Atypical Lymphocytes % 3
[2019-03-28 08:23] LABS: Diff Comment Manual Differential; Hypochromasia 1+; Polychromasia Present
[2019-03-28] MEDS: Magnesium Oxide 400 MG TAB 200 MG PO (08:32)
[2019-03-28] MEDS: Hydrocortisone 10 MG TAB 25 MG PO ×2 (08:32→12:54)
[2019-03-28] MEDS: Metoprolol CR 25 MG TABCR 75 MG PO (08:33)
[2019-03-28] MEDS: Aspirin E.C. 81 MG TABEC PO (08:33)
[2019-03-28] MEDS: Cholecalciferol (Vitamin D3) 1,000 UNIT TAB 1000 UNITS PO (08:33)
[2019-03-28] MEDS: Baclofen 10 MG TAB 20 MG PO (08:34)
[2019-03-28] MEDS: levETIRAcetam 500 MG TAB PO (08:34)
[2019-03-28] MEDS: Omeprazole 20 MG CAPCR 40 MG PO (08:34)
[2019-03-28] MEDS: Sennosides/Docusate Sodium TAB 1 TAB PO (08:35)
[2019-03-28] MEDS: Atorvastatin 40 MG TAB PO (08:35)
[2019-03-28] MEDS: Calcium Carbonate *TUMS* 500 MG CHEW 250 MG PO (08:35)
[2019-03-28] MEDS: LORazepam 0.5 MG TAB PO (10:06)
[2019-03-28 12:00] VITALS: BP 115/72; PULSE 72; RESP 18; TEMP 36.5; O2SAT 100
--- NOTE | 2019-03-28 12:09 | W.PM.DS.N ---
Date of service: 03/28/19 Time of Service: 12:09 DS: Diagnosis Discharge Diagnosis (1) Wheezing: Status: Chronic (2) Acute febrile illness: Status: Resolved (3) Altered mental status: Status: Resolved (4) Panhypopituitarism: Status: Chronic Discharge Plan Disposition Patient Disposition: HOME W/HOME HEALTH SERVICE Condition: Good Discharge Details Chief Complaint: RespSymp Clinical Impression: Altered mental status, Fever Reason For Visit: ACUTE FEBRILE ILLNESS Admit Date/Time: 03/24/19 17:31 Admit Provider: Skip Kate Attending Provider: Skip Kate Primary Care Provider: Subha Colon ED Provider: Tony Macias Hospital Course Hospital Course: Mr Burgos is a 28 year old male with PMHx of post-surgical panhypopituitarism with hypothyroidism, adrenal insufficiency, diabetes insipidus, cortical blindess, hemorrhagic CVA post-op as well as seizure disorder, who was admitted to [facility] service on 03/24/19 for encephalopathy/altered mental status following a discharge home on 03/22/19 for a similar complaint. His workup on this admission included a negative CXR, negative UA, negative blood cultures, an LP with negative CSF cultures, and other CSF studies consistent elevated total protein, but otherwise negative. The patient was treated with stress dose steroids, empiric antibiotics until his cultures came back negative. He was treated with IVF, which were discontinued once the patient was taking adequate PO intake. His mental status is now at his baseline, he has remained stable off of antibiotics for 48 hours. He was noted to have wheezing with CXR suggestive of mild fluid overload. This improved with an updraft treatment as well as a small dose of oral lasix. Per patient's outpatient case loader operator, the patient does have wheezing as outpatient but does not have a nebulizer machine at home. On previous admissions, the patient also benefited from nebulized treatments. He will be discharged home with a nebulizer machine, sherryn felisa knox. PCP could consider a pulmonary referral. It is felt that the reason the patient became acutely adrenally insufficient is because of a viral syndrome. There was a viral illness circulating in the home where he lives. The patient is to continue hydrocortisone 25 mg PO BID x 1 more day, then switch back to his prior to admission dose. He should follow up with his fish and wildlife scientific aid next week. He is medically stable for discharge home with resumption of home health services. Care for patient as well as preparation of discharge summary on date of discharge took 45 minutes. Home Meds and New Rx's Prescriptions: New hydrocortisone 10 mg Tablet 25 mg PO BID Qty: 5 RF: 0 ipratropium-albuterol 0.5 mg-3 mg(2.5 mg base)/3 mL solution for nebulization 3 ml IH QID PRN (Reason: shortness of breath or wheezing) Qty: 90 RF: 0 Continued trazodone 50 MG tablet 4 tab PO QPM RF: 0 omeprazole 40 MG capsule,delayed release(DR/EC) 1 cap PO DAILY RF: 0 zonisamide 100 MG capsule 2 cap PO QPM RF: 0 desmopressin 0.1 MG tablet 0.15 tab PO QNOON RF: 0 testosterone [AndroGel] 75 GM gel in metered-dose pump 3 applic Topical QAM RF: 0 atorvastatin 40 mg Tablet 40 mg PO DAILY RF: 0 aspirin [Aspir-81] 81 mg Tablet,Delayed Release (Dr/Ec) 1 tab PO DAILY RF: 0 sennosides-docusate sodium [DOK Plus] 8.6-50 mg Tablet 1 tab PO QHS PRNRF: 0 quetiapine [Seroquel] 200 mg Tablet 200 mg PO PRN PRNRF: 0 desmopressin 0.1 mg Tablet 0.1 mg PO QAM RF: 0 cholecalciferol (vitamin D3) [Vitamin D3] 1,000 unit Capsule 1,000 mg PO DAILY RF: 0 ferrous gluconate 324 mg (38 mg iron) Tablet 324 mg PO DAILY RF: 0 levothyroxine 200 mcg Capsule 225 mcg PO DAILY RF: 0 sennosides-docusate sodium [DOK Plus] 8.6-50 mg Tablet 1 tab PO BID RF: 0 calcium carbonate [Tums] 200 mg calcium (500 mg) Tablet,Chewable 200 mg PO DAILY RF: 0 metoprolol succinate 25 mg Tablet Extended Release 24 Hr 75 mg PO DAILY Qty: 1 RF: 0 melatonin 3 mg Tablet 9 mg PO HS RF: 0 baclofen 20 mg Tablet 20 mg PO TID RF: 0 magnesium 250 mg Tablet 250 mg PO BID RF: 0 hydrocortisone 10 mg tablet 10 mg PO QNOON Qty: 0 RF: 0 hydrocortisone [Cortef] 10 MG tablet 20 mg PO QAM Qty: 0 RF: 0 Discharge Instructions Instructions: Secondary Adrenal Insufficiency (DC) Additional Instructions: Return to the hospital with alterations in mental status, fever, bleeding, chest pain, or shortness of breath. Tomorrow, take hydrocortisone 25 mg twice daily as prescribed. On 03/30/19, resume your prior to admission dose of hydrocortisone. Follow up with [facility] endocrinology in 3-5 days. Follow up with your PCP within 1 week. Care Plan Goals: Resumption of home health services. Referrals: Subha Colon [Primary Care Provider] - Activity:: Activity as Tolerated Equipment/Supplies:: nebulizer machine Diet:: As Tolerated Discharge Orders Discharge Orders: Discharge Order (Routine); Ordered 03/28/19 Ordered By: Ila Rosenthal DS: Summary Status at Discharge Functional status at discharge: wheelchair bound Overall status at discharge: patient is back to baseline Mental Status: other (at baseline) Speech and Movement: other (slurred speech - baseline) Mood: anxious mood and other (at baseline) Affect: animated Exam Narrative Exam Narrative: General: Obese male, laying naked in bed, eating lunch, answering yes/no questions HEENT: not tracking, MMM Heart: RRR, no m/r/g Lungs: quiet expiratory wheezing - heard less than yesterday GI: abdomen is soft, nontender, nondistended Extremities: trace edema (symmetric) Psych Mental Status: other (at baseline) Speech and Movement: other (slurred speech - baseline) Mood: anxious mood and other (at baseline) Affect: animated DS: Data Vitals/I&O Vitals and I&O: Vital Signs Temperature 36.4 C L 03/28/19 07:40 Temperature Source Tympanic 03/28/19 07:40 Pulse 56 L 03/28/19 07:40 Pulse Rhythm Regular 03/28/19 03:21 Pulse 57 L 03/26/19 07:44 Respiratory Rate 19 03/28/19 07:40 Respiratory Effort Non-Labored 03/28/19 03:21 Respiratory Depth Normal 03/28/19 03:21 Respiratory Pattern Normal 03/28/19 03:21 Blood Pressure 108/67 03/28/19 07:40 Blood Pressure Mean 98 03/26/19 15:34 Blood Pressure Position Supine 03/26/19 11:58 Pulse Oximetry 97 03/28/19 07:40 Respiratory End-tidal CO2 32 03/24/19 16:44 Oxygen Delivery Method Room Air 03/28/19 07:40 Oxygen Flow Rate 0 03/28/19 07:40 Pain Level 0 03/28/19 03:20 Comment 03/28/19 03:20 Intake & Output 03/27/19 03/28/19 03/28/19 23:59 11:59 23:59 Intake Total 540 / 815 120 / 120 Balance 540 / 715 120 / 120 Weight 88.8 kg Intake: Oral 540 / 710 120 / 120 Other: Urine Appearance Clear Stool Size Moderate Stool Characteristics Soft Formed Data Completed and Pending Completed studies during hospitalization [Text1]: CXR 03/24/19: No evidence of acute process CXR 03/27/19: official read pending. Preliminary read: No acute findings. Per my read, mild fluid overload. Labs on day of discharge: Labs from last 24 hours 03/28/19 03/28/19 07:40 07:40 WBC 6.36 RBC 5.18 Hgb 13.7 Hct 41.9 MCV 80.9 MCH 26.4 L MCHC 32.7 RDW 15.7 H Plt Count 236 MPV 9.5 Immature Gran % See Differential Neutrophils % 40.0 Lymphocytes % 34.0 Atypical Lymphs % 3 Monocytes % 17.0 Eosinophils % 3.0 Basophils % 0.0 Metamyelocytes % 1.0 Myelocytes % 2.0 Absolute Neutrophils 2.54 Absolute Lymphocytes 2.35 Absolute Monocytes 1.08 H Absolute Eosinophils 0.19 Absolute Basophils 0.00 Differential Comment Manual differential RBC Morphology See below Polychromasia Present Hypochromasia 1+ Sodium 147 H Potassium 4.1 Chloride 113 H Carbon Dioxide 25.1 Anion Gap 8.9 BUN 13 Creatinine 0.84 Estimated GFR/1.73 m2 >= 60.00 Glucose 75 Calcium 8.2 L Magnesium 2.4 Preliminary micro results at discharge 03/24/19 14:15 Blood Culture - Preliminary Blood NO GROWTH 72 HOURS 03/24/19 11:52 Blood Culture - Preliminary Blood NO GROWTH 72 HOURS [facility] Medical History (Updated 03/28/19 @ 12:09 by Ila Rosenthal MD) Constipation (Chronic) Cortical blindness (Chronic) CVA (cerebral vascular accident) (Resolved) Diabetes insipidus (Chronic) GERD (gastroesophageal reflux disease) (Chronic) History of brain tumor (Resolved) Hx of fracture of pelvis (Resolved) Insomnia (Chronic) Leg cramps (Chronic) 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Chronic) Seizures (Chronic) TBI (traumatic brain injury) (Chronic) Urinary retention (Resolved) Surgical History (Updated 03/24/19 @ 21:49 by Skip Kate) H/O brain surgery (Inactive) Social History Smoking/Tobacco Use Status: Never Alcohol Intake: current Alcohol type: other Drug use: Never Substance use type: does not use Do you feel safe at home: Yes Do you feel safe in your relationship?: Yes
--- NOTE | 2019-03-28 19:29 | PDOC.CMDIS ---
- If Service Date Differs Date of service: 03/28/19 Time of Service: 19:29 LACE Index Scoring Tool - Questions: Length of Stay (in days): 4 - 6 Acuity (Admit via E.D.?): Yes Comorbidities: Cerebrovascular Disease, Any Tumor E.D. Visits: 4 - Answers: Total Score: 14 Risk of Readmission: High Risk Care Management Discharge Reason for Hospitalization: Acute Febrile Illness Discharge Plan: Miguel Angel [facility] caregivers. He will follow up with his PCP and discharge plan of care. He will be given a new home nebulizer with prn duoneb updrafts ordered. Miguel Angel will transport via private vehicle with caregivers. Patient/Family Education Needs: Discharge plan including use of nebulizer with updrafts, limitations, follow up plan and Ask Me Three. - MH Services (Omit if N/A) Current MH Services: [facility]
[2019-03-29 15:29] LABS: West Nile Virus Ab, IgG, CSF Negative (Negative); West Nile Virus Ab, IgM, CSF Negative (Negative)
== END 2019-03-28 14:06 | disposition home health service (06) | DRG 864 ==
LOC: ER 19:21 → ICU 20:12 → MS 03-27 13:09 → ICU 04-06 12:46
PROVIDERS: Internal Medicine; Student in an Organized Health Care Education/Training Program; Admitting Provider Internal Medicine; Emergency Provider Student in an Organized Health Care Education/Training Program; PCP Nurse Practitioner Family; Visit Provider Internal Medicine
DX: R50.9 Fever, unspecified (principal); E23.2 Diabetes insipidus; G40.509 Epileptic seizures related to external causes, not intractable, without status epilepticus; B34.9 Viral infection, unspecified; R06.2 Wheezing; E87.70 Fluid overload, unspecified; R41.82 Altered mental status, unspecified; R78.89 Finding of other specified substances, not normally found in blood; E89.3 Postprocedural hypopituitarism; E03.9 Hypothyroidism, unspecified; Z99.3 Dependence on wheelchair; I69.198 Other sequelae of nontraumatic intracerebral hemorrhage; K21.9 Gastro-esophageal reflux disease without esophagitis
CPT/HCPCS: 36415; 80048; 80053; 80307; 82945; 84145; 87040; 87798; 89050; 89051; 93005; 96361; 96365; 96366; 96367; 99220; 99232; 99233; 99239; 99291; 71045; 71046; 80202; 81003; 83605; 83735; 84157; 84295; 85025; 86788; 86789; 87070; 87205; 87476; 93010; J0131; J0290; J1100; J1200; J1720; J1953; J2060; J3370; J7620

== ENCOUNTER 2019-05-21 12:56 | Outpatient (REF) | payer MEDICAID, SELFPAY ==
[2019-05-21 21:10] LABS: Anion Gap 8.6 mmol/L (3-11); BUN 15 mg/dL (7-18); CO2 28.4 mmol/L (21.0-32.0); CREATININE 0.86 mg/dL (0.70-1.30); Chloride 105 mmol/L (98-107); Glucose 77 mg/dL (70-100); Magnesium 1.8 mg/dL (1.8-2.4); Potassium 3.7 mmol/L (3.5-5.1); Sodium 142 mmol/L (136-145)
== END 2019-05-21 13:16 ==
LOC: NCHCN 12:56
PROVIDERS: PCP Nurse Practitioner Family; Visit Provider Nurse Practitioner Family
DX: E23.2 Diabetes insipidus (principal); R25.2 Cramp and spasm
CPT/HCPCS: 80048; 83735

== ENCOUNTER 2019-06-06 21:24 | Emergency (ER) | payer MEDICAID, SELFPAY ==
[2019-06-06 21:46] VITALS: BP 137/74; PULSE 90; RESP 16; TEMP 36.5; O2SAT 100
--- NOTE | 2019-06-06 22:04 | ED.GENADUL_ITS ---
Discharge Plan Disposition Patient Disposition: HOME Condition: Stable Discharge Details Chief Complaint: Nausea/Vomit/Diar Clinical Impression: Nausea & vomiting Primary Care Provider: Subha Colon ED Provider: Marvin Hilliard [place] Meds and New Rx's Prescriptions: New ondansetron 4 mg tablet,disintegrating 4 mg PO Q8H PRN (Reason: nausea and vomiting) Qty: 20 RF: 0 Continued trazodone 50 MG tablet 4 tab PO QPM RF: 0 omeprazole 40 MG capsule,delayed release(DR/EC) 1 cap PO DAILY RF: 0 zonisamide 100 MG capsule 2 cap PO QPM RF: 0 desmopressin 0.1 MG tablet 0.15 tab PO QNOON RF: 0 testosterone [AndroGel] 75 GM gel in metered-dose pump 3 applic Topical QAM RF: 0 atorvastatin 40 mg Tablet 40 mg PO DAILY RF: 0 aspirin [Aspir-81] 81 mg Tablet,Delayed Release (Dr/Ec) 1 tab PO DAILY RF: 0 sennosides-docusate sodium [DOK Plus] 8.6-50 mg Tablet 1 tab PO QHS PRNRF: 0 quetiapine [Seroquel] 200 mg Tablet 200 mg PO PRN PRNRF: 0 desmopressin 0.1 mg Tablet 0.1 mg PO QAM RF: 0 cholecalciferol (vitamin D3) [Vitamin D3] 1,000 unit Capsule 1,000 mg PO DAILY RF: 0 ferrous gluconate 324 mg (38 mg iron) Tablet 324 mg PO DAILY RF: 0 levothyroxine 200 mcg Capsule 225 mcg PO DAILY RF: 0 sennosides-docusate sodium [DOK Plus] 8.6-50 mg Tablet 1 tab PO BID RF: 0 calcium carbonate [Tums] 200 mg calcium (500 mg) Tablet,Chewable 200 mg PO DAILY RF: 0 metoprolol succinate 25 mg Tablet Extended Release 24 Hr 75 mg PO DAILY Qty: 1 RF: 0 melatonin 3 mg Tablet 9 mg PO HS RF: 0 baclofen 20 mg Tablet 20 mg PO TID RF: 0 magnesium 250 mg Tablet 250 mg PO BID RF: 0 hydrocortisone 10 mg Tablet 25 mg PO BID Qty: 5 RF: 0 ipratropium-albuterol 0.5 mg-3 mg(2.5 mg base)/3 mL solution for nebulization 3 ml IH QID PRN (Reason: shortness of breath or wheezing) Qty: 90 RF: 0 hydrocortisone 10 mg tablet 10 mg PO QNOON Qty: 0 RF: 0 hydrocortisone [Cortef] 10 MG tablet 20 mg PO QAM Qty: 0 RF: 0 Discharge Instructions Instructions: Acute Nausea and Vomiting (ED) Additional Instructions: follow up with your primary care provider this week if vomit continues despite the medicine, you have high fevers or severe abdominal pain or feel more ill return to the emergency department Medical Decision Making 28 yr old male with pmhx significant for 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 HE states it started on thanksgiving with not feeling well and has had loose stools and n/v which had gotten better but then started to have n/v again tonight. Denies any chest pain, fevers, chills, abdominal pain. He has no abodminal tenderness, no rashes, denie recent travel or abx. Will give IVF as he does appear dehydrated and give a stress dose of hydrocortisone given his hx. Do not feel he requires abodminal imaging given lack of pain and tenderness and it is soft without distention. Will evaluate for electrolyte abnormalities and monitor pt's labs show no acute abnormalities, awaiting UA. HE refused influenza swab and actually closed his nostrils with his hand and pushed the nurse away so this was cancelled as he is day 4 into symptoms regardless and wouldn't be tamiflu candidate. REmains tsable. pt urinated in the bedside commode. denies any urinary symptoms so do not feel he needs to stay for this. HE feels well enough to go home and staff is willing to take him home and will have him f/u with pcp this week and return precautions given Differential Diagnosis Differential Diagnosis: gastroenteritis, electrolyte abnormality, influenza Medical Records Medical records reviewed: Yes I reviewed the patient's medical records. Lab Data Lab results reviewed: Yes I reviewed the patient's lab results. HPI General Mode of arrival: wheelchair . Date/Time Provider Initiated Documentation: 06/06/19 21:42 . Limitations to Documentation: no limitations . Information obtained by: patient and family (caretakers) . History of Present Illness 28 year old M presents to the emergency department with the chief complaint of nausea and vomit, described as moderate, and it has been intermittent. No relieving factors improve symptom(s), No exacerbating factors reported . Patient notes nausea/vomiting. Patient did receive the following treatments prior to arrival, none Related Data Home Medications Medication Instructions Recorded Confirmed desmopressin 0.15 tab PO QNOON 12/29/15 03/24/19 omeprazole 1 cap PO DAILY 12/29/15 03/24/19 testosterone [AndroGel] 3 applic TOPICAL QAM 12/29/15 03/24/19 trazodone 4 tab PO QPM 12/29/15 03/24/19 zonisamide 2 cap PO QPM 12/29/15 03/24/19 aspirin [Aspir-81] 1 tab PO DAILY 05/08/18 03/24/19 atorvastatin 40 mg PO DAILY 05/08/18 03/24/19 cholecalciferol (vitamin D3) 1,000 mg PO DAILY 09/09/18 03/24/19 [Vitamin D3] desmopressin 0.1 mg PO QAM 09/09/18 03/24/19 ferrous gluconate 324 mg PO DAILY 09/09/18 03/24/19 levothyroxine 225 mcg PO DAILY 09/09/18 03/24/19 quetiapine [Seroquel] 200 mg PO PRN PRN 09/09/18 03/24/19 sennosides-docusate sodium [DOK 1 tab PO QHS PRN 09/09/18 03/24/19 Plus] calcium carbonate [Tums] 200 mg PO DAILY 03/21/19 03/24/19 sennosides-docusate sodium [DOK 1 tab PO BID 03/21/19 03/24/19 Plus] metoprolol succinate 75 mg PO DAILY #1 tab 03/22/19 03/24/19 baclofen 20 mg PO TID 03/24/19 03/24/19 magnesium 250 mg PO BID 03/24/19 03/24/19 melatonin 9 mg PO HS 03/24/19 03/24/19 hydrocortisone 10 mg PO QNOON #0 tab 03/28/19 03/24/19 hydrocortisone 25 mg PO BID #5 tab 03/28/19 hydrocortisone [Cortef] 20 mg PO QAM #0 tab 03/28/19 03/24/19 ipratropium-albuterol 3 ml IH QID PRN #90 ml 03/28/19 ondansetron 4 mg PO Q8H PRN #20 tab 06/06/19 Previous Rx's Medication Instructions Recorded metoprolol succinate 75 mg PO DAILY #1 tab 03/22/19 hydrocortisone 10 mg PO QNOON #0 tab 03/28/19 hydrocortisone 25 mg PO BID #5 tab 03/28/19 hydrocortisone [Cortef] 20 mg PO QAM #0 tab 03/28/19 ipratropium-albuterol 3 ml IH QID PRN #90 ml 03/28/19 ondansetron 4 mg PO Q8H PRN #20 tab 06/06/19 Allergies Allergy/AdvReac Type Severity Reaction Status Date / Time gemfibrozil [From Lopid] AdvReac Unknown Unverified 06/06/19 21:49 General Stated Complaint: Nausea/Vomit/Diar KWASI: 3 Review of Systems All systems reviewed & are unremarkable except as noted in HPI and below Constitutional Constitutional: Denies chills, Denies fever(s) and Denies weakness Cardiovascular Cardiovascular: Denies chest pain and Denies dyspnea Respiratory Respiratory: Denies cough and Denies dyspnea Gastrointestinal Gastrointestinal: Denies abdominal pain Musculoskeletal Musculoskeletal: Denies joint swelling Neurologic Neurologic: Denies weakness Allergic/Immunologic Allergic/Immunologic: Denies urticaria [facility] Medical History (Updated 03/28/19 @ 12:09 by Ila Rosenthal MD) Constipation (Chronic) Cortical blindness (Chronic) CVA (cerebral vascular accident) (Resolved) Diabetes insipidus (Chronic) GERD (gastroesophageal reflux disease) (Chronic) History of brain tumor (Resolved) Hx of fracture of pelvis (Resolved) Insomnia (Chronic) Leg cramps (Chronic) 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Chronic) Seizures (Chronic) TBI (traumatic brain injury) (Chronic) Urinary retention (Resolved) Surgical History (Updated 03/24/19 @ 21:49 by Skip Kate) H/O brain surgery (Inactive) Social History Smoking/Tobacco Use Status: Never Alcohol Intake: current Alcohol type: other Drug use: Never Substance use type: does not use Do you feel safe at home: Yes Do you feel safe in your relationship?: Yes Exam Const General: no acute distress Orientation: alert HENMT Head: normal to inspection Ears: external ears normal General nose exam: external nose normal Mouth: moist mucous membranes Eyes General: appearance normal, both eyes and all related structures Neck Neck: normal visual inspection Resp Effort & Inspection: normal respiratory effort and able to speak in complete sentences Cardio Rate: regular rate GI Palpation: soft Skin General skin exam: no rashes or lesions noted Neuro General: alert and oriented x3 Extrem General: normal to inspection Psych Mental Status: mental status grossly normal Course Vital Signs Vital signs: Vital Signs Temperature 36.5 C 06/06/19 21:46 Pulse 90 06/06/19 21:46 Respiratory Rate 16 06/06/19 21:46 Blood Pressure 137/74 06/06/19 21:46 Pulse Oximetry 100 06/06/19 21:46 Temperature 36.5 C 06/06/19 21:46 Temperature Source Temporal Artery Scan 06/06/19 21:46 Pulse 90 06/06/19 21:46 Respiratory Rate 16 06/06/19 21:46 Blood Pressure 137/74 06/06/19 21:46 Blood Pressure Position Supine 06/06/19 21:46 Pulse Oximetry 100 06/06/19 21:46 Oxygen Delivery Method Room Air 06/06/19 21:46 Oxygen Flow Rate 0 06/06/19 21:46 Pain Level 0 06/06/19 21:46
[2019-06-06 22:18] LABS: HCO3 (Venous) 23 mmol/L (22-28); O2 Sat (Venous) 95 % (70-80); TCO2 (Venous) 20 mmol/L (22-29); pCO2 (Venous) 40 mm/Hg (34-47); pH (Venous) 7.36 (7.32-7.43); pO2 (Venous) 72 mm/Hg (28-44)
[2019-06-06 22:19] LABS: Abs Immature Grans 0.02 k/cumm (0.0-0.09); Absolute Basophil Count 0.01 k/cumm (0.0-0.2); Absolute Eosinophil Count 0.09 k/cumm (0.0-0.7); Absolute Lymphocyte Count 1.29 k/cumm (1.2-3.4); Absolute Monocyte Count 0.56 k/cumm (0.11-0.7); Absolute Neutrophil Count 2.31 k/cumm (1.2-6.7); Basophils % 0.2; Eosinophils % 2.1; HCT 40.8 % (40.0-50.0); HGB 13.9 g/dL (13.5-17.5); Immature Grans % 0.5; Lymphocytes % 30.1; Mean Corp. HGB Concentration 34.1 g/dL (32.0-36.0); Mean Corpuscular Hemoglobin 26.3 pg (27.0-33.0); Mean Corpuscular Volume 77.1 fL (80-95); Mean Platelet Volume 9.9 fL (8.0-11.0); Monocytes % 13.1; Platelet Count 201 x1000/uL (130-400); RBC 5.29 m/cumm (4.50-6.00); RBC Distribution Width 14.9 % (11.8-14.1); White Blood Cell Count 4.28 k/cumm (4.4-10.8)
[2019-06-06 22:21] LABS: Lactate 1.5 mmol/L (0.6-1.4)
[2019-06-06] MEDS: Hydrocortisone SOD SUC. 100 MG VIAL IVP (22:22)
[2019-06-06] MEDS: Normal Saline 1,000 ML 1000 ML IV (22:22)
[2019-06-06 22:23] VITALS: TEMP 37
[2019-06-06] MEDS: Ondansetron 4 MG/2 ML VIAL IVP (22:23)
[2019-06-06 22:34] LABS: ALT 117 U/L (16-63); AST 44 U/L (15-37); Albumin 3.6 g/dL (3.4-5.0); Alkaline Phosphatase 134 U/L (46-116); BUN 17 mg/dL (7-18); Bilirubin, Total 0.4 mg/dL (0.2-1.0); CREATININE 0.98 mg/dL (0.70-1.30); Calcium 8.2 mg/dL (8.5-10.1); Chloride 106 mmol/L (98-107); Glucose 106 mg/dL (74-106); Lipase 100 U/L (73-393); Magnesium 1.8 mg/dL (1.8-2.4); Potassium 3.7 mmol/L (3.5-5.1); Sodium 141 mmol/L (136-145); Total Protein 6.9 g/dL (6.4-8.2)
[2019-06-06 23:16] VITALS: BP 130/84; PULSE 70; RESP 20; TEMP 36.6; O2SAT 98
--- NOTE | 2019-06-06 23:52 | NUR.NOTE ---
pt did notvoid during thehospital stay. pt had a small soft formed stool .Nursing Note:
== END 2019-06-06 23:45 | disposition home or self-care (01) ==
PROVIDERS: Emergency Provider Emergency Medicine; PCP Nurse Practitioner Family
DX: R11.2 Nausea with vomiting, unspecified (principal); R19.7 Diarrhea, unspecified; E23.0 Hypopituitarism
CPT/HCPCS: 36415; 80053; 82805; 83690; 87449; 96374; 96375; 99284; 81003; 83605; 83735; 85025; J1720; J2405

== ENCOUNTER 2019-07-30 11:41 | Outpatient (CLI) | payer MEDICAID, SELFPAY ==
[2019-07-30 13:28] LABS: Ferritin 154 ng/mL (26-388)
[2019-07-30 16:55] LABS: Ionized Calcium 1.12 mmol/L (1.12-1.32)
[2019-08-02 09:53] LABS: Hepatitis B Surface Ag Negative (Negative)
[2019-08-02 11:29] LABS: Hepatitis C Ab w Rflx HCV PCR Negative (Negative)
[2019-08-02 14:10] LABS: Vitamin D 25 Total 36.9 ng/ml (30-100)
== END 2019-07-30 12:01 ==
PROVIDERS: PCP Nurse Practitioner Family; Visit Provider Family Medicine
DX: E83.51 Hypocalcemia (principal); R74.8 Abnormal levels of other serum enzymes; Z11.59 Encounter for screening for other viral diseases; M81.0 Age-related osteoporosis without current pathological fracture
CPT/HCPCS: 36415; 82306; 86803; 87340; 82330; 82728; 87350

== ENCOUNTER 2019-08-04 13:56 | Emergency (ER) | payer MEDICAID, SELFPAY ==
[2019-08-04] VITALS (7 sets, daily range): BP systolic 107–140; BP diastolic 65–76; PULSE 110–130; RESP 18–24; TEMP 36.7–39.3; O2SAT 94–99
[2019-08-04 14:59] LABS: Abs Immature Grans 0.01 k/cumm (0.0-0.09); Absolute Basophil Count 0.01 k/cumm (0.0-0.2); Absolute Eosinophil Count 0.08 k/cumm (0.0-0.7); Absolute Lymphocyte Count 0.77 k/cumm (1.2-3.4); Absolute Monocyte Count 0.58 k/cumm (0.11-0.7); Absolute Neutrophil Count 3.76 k/cumm (1.2-6.7); Basophils % 0.2; Eosinophils % 1.5; HCT 43.5 % (40.0-50.0); HGB 14.6 g/dL (13.5-17.5); Immature Grans % 0.2 %; Lymphocytes % 14.8; Mean Corp. HGB Concentration 33.6 g/dL (32.0-36.0); Mean Corpuscular Hemoglobin 26.1 pg (27.0-33.0); Mean Corpuscular Volume 77.7 fL (80-95); Mean Platelet Volume 9.7 fL (8.0-11.0); Monocytes % 11.1; Neutrophils % 72.2; Platelet Count 188 x1000/uL (130-400); RBC Distribution Width 15.4 % (11.8-14.1); White Blood Cell Count 5.21 k/cumm (4.4-10.8)
[2019-08-04 15:11] LABS: ALT 82 U/L (16-63); AST 23 U/L (15-37); Albumin 4.2 g/dL (3.4-5.0); Alkaline Phosphatase 115 U/L (46-116); Anion Gap 11.7 mmol/L (3-11); BUN 23 mg/dL (7-18); Bilirubin, Total 0.4 mg/dL (0.2-1.0); CO2 27.3 mmol/L (21.0-32.0); CREATININE 1.05 mg/dL (0.70-1.30); Calcium 8.5 mg/dL (8.5-10.1); Chloride 103 mmol/L (98-107); Glucose 94 mg/dL (74-106); Lipase 123 U/L (73-393); Potassium 3.4 mmol/L (3.5-5.1); Sodium 142 mmol/L (136-145); Total Protein 7.7 g/dL (6.4-8.2)
[2019-08-04] MEDS: Ondansetron 4 MG/2 ML VIAL IVP (15:18)
[2019-08-04] MEDS: Normal Saline - Diluent 50 ML VIAL IV (15:58)
[2019-08-04] MEDS: Omnipaque 350 MG/ML 100 ML BTL IJ (15:58)
--- NOTE | 2019-08-04 16:00 | DI.CT_ITS ---
EXAM: CT ABDOMEN PELVIS W CLINICAL HISTORY: n/v/d, vomiting regurgitated food TECHNIQUE: CT examination of the abdomen and pelvis was performed with a bolus infusion of 100 cc of Omnipaque 350. COMPARISON: No exams were available for comparison FINDINGS: Motion artifact limits image quality. Images obtained through the lung bases are unremarkable. Liver, spleen and pancreas appear normal. Gallbladder and bile ducts are CT normal. Adrenals and ki dneys appear normal. No urinary tract calcification or obstruction. Abdominal aorta is of normal di ameter and no major vascular abnormality is seen. No significant abdominal wall hernia is seen. No abdominal or pelvic adenopathy. Appendix is normal. No evidence of diverticulitis or bowel obstruction. Moderate fluid-filled small -bowel distention and gastric distention noted consistent with enteritis. IMPRESSION: Findings consistent with enteritis. No evidence of appendicitis.
[2019-08-04] MEDS: Normal Saline Flush 10 ML SYR IVP (16:01)
--- NOTE | 2019-08-04 16:03 | W.ED.GENAD ---
Discharge Plan Disposition Patient Disposition: HOME Condition: Improving Discharge Details Chief Complaint: Nausea/Vomit/Diar Clinical Impression: Gastroenteritis Primary Care Provider: Ren Vaz ED Provider: Paris Ardon [place] Meds and New Rx's Prescriptions: New ondansetron 4 mg tablet,disintegrating 4 mg PO Q6H PRN (Reason: nausea and vomiting) Qty: 10 RF: 0 Continued trazodone 50 MG tablet 4 tab PO QPM RF: 0 omeprazole 40 MG capsule,delayed release(DR/EC) 1 cap PO DAILY RF: 0 zonisamide 100 MG capsule 2 cap PO QPM RF: 0 desmopressin 0.1 MG tablet 0.15 tab PO QNOON RF: 0 testosterone [AndroGel] 75 GM gel in metered-dose pump 3 applic Topical QAM RF: 0 atorvastatin 40 mg Tablet 40 mg PO DAILY RF: 0 aspirin [Aspir-81] 81 mg Tablet,Delayed Release (Dr/Ec) 1 tab PO DAILY RF: 0 sennosides-docusate sodium [DOK Plus] 8.6-50 mg Tablet 1 tab PO QHS PRNRF: 0 quetiapine [Seroquel] 200 mg Tablet 200 mg PO PRN PRNRF: 0 desmopressin 0.1 mg Tablet 0.1 mg PO QAM RF: 0 cholecalciferol (vitamin D3) [Vitamin D3] 1,000 unit Capsule 1,000 mg PO DAILY RF: 0 ferrous gluconate 324 mg (38 mg iron) Tablet 324 mg PO DAILY RF: 0 levothyroxine 200 mcg Capsule 225 mcg PO DAILY RF: 0 sennosides-docusate sodium [DOK Plus] 8.6-50 mg Tablet 1 tab PO BID RF: 0 calcium carbonate [Tums] 200 mg calcium (500 mg) Tablet,Chewable 200 mg PO DAILY RF: 0 metoprolol succinate 25 mg Tablet Extended Release 24 Hr 75 mg PO DAILY Qty: 1 RF: 0 melatonin 3 mg Tablet 9 mg PO HS RF: 0 baclofen 20 mg Tablet 20 mg PO TID RF: 0 magnesium 250 mg Tablet 250 mg PO BID RF: 0 hydrocortisone 10 mg Tablet 25 mg PO BID Qty: 5 RF: 0 ipratropium-albuterol 0.5 mg-3 mg(2.5 mg base)/3 mL solution for nebulization 3 ml IH QID PRN (Reason: shortness of breath or wheezing) Qty: 90 RF: 0 hydrocortisone 10 mg tablet 10 mg PO QNOON Qty: 0 RF: 0 hydrocortisone [Cortef] 10 MG tablet 20 mg PO QAM Qty: 0 RF: 0 sennosides-docusate sodium [Senexon-S] 8.6-50 mg Tablet 1 tab PO RF: 0 Discharge Instructions Instructions: Gastroenteritis (ED) Additional Instructions: Please follow fluid management as previously advised. Please continue with previous medications. You may use the Zofran as prescribed to help with any recurrence of nausea vomiting. CT scan is significant for gastroenteritis. This most commonly is viral in nature. Please have patient wash his hands frequently. If Miguel Angel develops fever/chills, abdominal pain or other new/worsening symptom please seek care urgently once again. Please bring in urine sample as soon as possible. Please follow-up with primary care in 2 days for reevaluation. Referrals: Ren Vaz [Primary Care Provider] - Medical Decision Making <NAKIA Verdugo - Last Filed: 08/04/19 22:23> Patient is a 29-year-old male presenting today with nausea, vomiting and diarrhea. Care was signed out to myself from Radha Egan PA-C. Please see her initial documentation for exam, history and initial findings. Patient was signed out to myself with CT imaging pending. In short, patient is a 29-year-old male with history of TBI, presenting brought in by his caregivers, with concern for sudden onset of nausea, vomiting and diarrhea. They report that he has had 4 episodes of diarrhea and had a large episode of emesis earlier vomiting after yesterday's p.o. intake. Patient does have history of diabetes insipidus, cortical blindness, constipation, insomnia, GERD, seizures and TBI. CT reviewed by radiologist: FINDINGS: Lungs: Minimal atelectasis. Liver: Normal. No mass. Gallbladder and bile ducts: Normal. No calcified stones. No ductal dilation. Pancreas: Normal. No ductal dilation. Spleen: Normal. No splenomegaly. Adrenals: Normal. No mass. Kidneys and ureters: Normal. No hydronephrosis. Stomach and bowel: The there is a large air-fluid level in the prominently distended stomach. No dilatation of the small bowel. Relatively large amount of fluid in the colon as compared to the usual air-filled fecal material. Appendix: The appendix is not visualized but there are no secondary signs of appendicitis. Intraperitoneal space: Unremarkable. No free air. No significant fluid collection. Vasculature: Unremarkable. No abdominal aortic aneurysm. Lymph nodes: Unremarkable. No enlarged lymph nodes. Bladder: Unremarkable as visualized. Reproductive: Unremarkable as visualized. Bones/joints: large orthopedic in braces stabilizing an old the fracture deformity of the left acetabulum. There prominent subchondral cyst in the left femoral head. There are diffuse mild congenital deformities of the visualized lower thoracic and lumbar vertebra with narrowing of the central and anterior portions of the vertebra essentially at every level to some extent. Soft tissues: Unremarkable. IMPRESSION: Prominent distention of the stomach as well as unusually large amount of fluid in the colon suggesting gastroenteritis. XR reviewed by radiologist: FINDINGS: Lungs: Incomplete inspiration without focal consolidation. Pleural space: Unremarkable. No pleural effusion. No pneumothorax. Heart/Mediastinum: Unremarkable. No cardiomegaly. Bones/joints: Unremarkable. IMPRESSION: Relatively poor inspiratory effort but no focal consolidation to suggest pneumonia CT was reviewed by radiologist and significant for gastroenteritis. I reevaluated the patient, he continues to be without any evidence of abdominal pain. His caregivers feel that he appears improved from when he came in initially. He was given Zofran initially by Radha Egan for improvement of his symptoms. Plan to discharge him home with more of the same. I have asked with strict return precautions. I have asked that they have him evaluated by primary care in 2 days time. Just prior to patient's discharge, recheck vital signs show a temperature of 39.3. Will give oral Tylenol and perform a rapid flu swab. I augmented the Tylenol with Toradol. Patient received the remaining fluid left of the 1 L bolus. Heart rate and temp are now downtrending. He is tolerating p.o. fluids. Continues to be at baseline per home care providers. At this time, as he is improving, tolerating fluids and mentally at baseline will discharge home with strict return precautions. I have asked that they follow-up with primary care in the next 2 days. They are given strict return precautions. Will prescribe Zofran to help with any persistent symptoms. All other questions and concerns were addressed noted in this plan. HPI <NAKIA Verdugo - Last Filed: 08/04/19 22:23> General Date/Time Provider Initiated Documentation: 08/04/19 14:07. Related Data Home Medications Medication Instructions Recorded Confirmed desmopressin 0.15 tab PO QNOON 12/29/15 08/04/19 omeprazole 1 cap PO DAILY 12/29/15 08/04/19 testosterone [AndroGel] 3 applic TOPICAL QAM 12/29/15 08/04/19 trazodone 4 tab PO QPM 12/29/15 08/04/19 zonisamide 2 cap PO QPM 12/29/15 08/04/19 aspirin [Aspir-81] 1 tab PO DAILY 05/08/18 08/04/19 atorvastatin 40 mg PO DAILY 05/08/18 08/04/19 cholecalciferol (vitamin D3) 1,000 mg PO DAILY 09/09/18 08/04/19 [Vitamin D3] desmopressin 0.1 mg PO QAM 09/09/18 08/04/19 ferrous gluconate 324 mg PO DAILY 09/09/18 08/04/19 levothyroxine 225 mcg PO DAILY 09/09/18 08/04/19 quetiapine [Seroquel] 200 mg PO PRN PRN 09/09/18 08/04/19 sennosides-docusate sodium [DOK 1 tab PO QHS PRN 09/09/18 08/04/19 Plus] calcium carbonate [Tums] 200 mg PO DAILY 03/21/19 08/04/19 sennosides-docusate sodium [DOK 1 tab PO BID 03/21/19 08/04/19 Plus] metoprolol succinate 75 mg PO DAILY #1 tab 03/22/19 08/04/19 baclofen 20 mg PO TID 03/24/19 08/04/19 magnesium 250 mg PO BID 03/24/19 08/04/19 melatonin 9 mg PO HS 03/24/19 08/04/19 hydrocortisone 10 mg PO QNOON #0 tab 03/28/19 08/04/19 hydrocortisone 25 mg PO BID #5 tab 03/28/19 08/04/19 hydrocortisone [Cortef] 20 mg PO QAM #0 tab 03/28/19 08/04/19 ipratropium-albuterol 3 ml IH QID PRN #90 ml 03/28/19 08/04/19 ondansetron 4 mg PO Q6H PRN #10 tab 08/04/19 sennosides-docusate sodium 1 tab PO 08/04/19 [Senexon-S] Previous Rx's Medication Instructions Recorded metoprolol succinate 75 mg PO DAILY #1 tab 03/22/19 hydrocortisone 10 mg PO QNOON #0 tab 03/28/19 hydrocortisone 25 mg PO BID #5 tab 03/28/19 hydrocortisone [Cortef] 20 mg PO QAM #0 tab 03/28/19 ipratropium-albuterol 3 ml IH QID PRN #90 ml 03/28/19 ondansetron 4 mg PO Q6H PRN #10 tab 08/04/19 Allergies Allergy/AdvReac Type Severity Reaction Status Date / Time gemfibrozil [From Lopid] AdvReac Unknown Unverified 06/06/19 21:49 <NAKIA Rodriguez - Last Filed: 08/04/19 19:40> HPI Narrative: Is a 29-year-old patient presenting to the emergency room for complaints of nausea vomiting and diarrhea. Onset of symptoms this morning. Patient is under long-term care. Patient accompanied by caretakers were familiar with him. Patient is minimally verbal. Patient has history of brain mass and ultimate CVA. Patient also has a history of cortical blindness, diabetes insipidus and adrenal abnormalities. Patient is on fluid restriction and fluids are closely managed. Patient is due to get an additional 750 cc of fluid by 3:00. Patient is presenting to the emergency room today after vomiting twice this morning. Patient had what appeared to be undigested food from yesterday's dinner specifically noodles. In addition patient's breakfast seemed undigested. This seemed abnormal to staff. Patient has also had 4 bouts of watery diarrhea today. There is no evident complaints of abdominal pain however per staff patient is unlikely to complain of pain. He is obviously complaining of left leg cramping which is his baseline. Per staff cough is present with mild associated wheezing which is not his baseline, patient has no obvious change in his respiratory effort per staff. No measured fevers or chills. No obvious nasal congestion. Labs ordered as well as CT of the of abdomen given history of undigested food products. Chest x-ray to be obtained to be sure there is no associated aspiration. Urinalysis to be obtained. Zofran ordered for complaints of vomiting. Patient provided 750 cc of fluid. Patient has no associated leukocytosis. Very mild hypokalemia. Minimal changes to ALT which is slightly elevated BUN which is slightly elevated and anion gap which is slightly elevated all nonspecific. Signed out pending CT evaluation of his abdomen as well as urinalysis results. General Stated Complaint: Nausea/Vomit/Diar KWASI: 3 PFSH <NAKIA Verdugo - Last Filed: 08/04/19 22:23> Medical History (Updated 08/04/19 @ 17:52 by NAKIA Verdugo) Constipation (Chronic) Cortical blindness (Chronic) CVA (cerebral vascular accident) (Resolved) Diabetes insipidus (Chronic) GERD (gastroesophageal reflux disease) (Chronic) History of brain tumor (Resolved) Hx of fracture of pelvis (Resolved) Insomnia (Chronic) Leg cramps (Chronic) 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Chronic) Seizures (Chronic) TBI (traumatic brain injury) (Chronic) Urinary retention (Resolved) Surgical History (Updated 03/24/19 @ 21:49 by Skip Kate) H/O brain surgery (Inactive) Social History Smoking/Tobacco Use Status: Never Alcohol Intake: current Alcohol type: other Drug use: Never Substance use type: does not use Do you feel safe at home: Yes Do you feel safe in your relationship?: Yes <NAKIA Rodriguez - Last Filed: 08/04/19 19:40> Vital Signs Vital signs: Vital Signs Temperature 36.7 C 08/04/19 14:12 Pulse 128 H 08/04/19 14:12 Respiratory Rate 18 08/04/19 14:12 Blood Pressure 133/76 08/04/19 14:12 Pulse Oximetry 97 08/04/19 14:12 Temperature 36.7 C 08/04/19 14:12 Pulse 128 H 08/04/19 14:12 Respiratory Rate 18 08/04/19 14:12 Blood Pressure 133/76 08/04/19 14:12 Blood Pressure Position Sitting 08/04/19 14:12 Pulse Oximetry 97 08/04/19 14:12 Oxygen Delivery Method Room Air 08/04/19 14:12 Oxygen Flow Rate 0 08/04/19 14:12 Pain Level 0 08/04/19 14:12 Lab/Test Results Lab/Test Results: Laboratory Tests Range/Units 08/04/19 08/04/19 14:28 14:28 WBC (4.4-10.8) k/cumm 5.21 RBC (4.50-6.00) m/cumm 5.60 Hgb (13.5-17.5) g/dL 14.6 Hct (40.0-50.0) % 43.5 MCV (80-95) fL 77.7 L MCH (27.0-33.0) pg 26.1 L MCHC (32.0-36.0) g/dL 33.6 RDW (11.8-14.1) % 15.4 H Plt Count (130-400) x1000/uL 188 MPV (8.0-11.0) fL 9.7 Immature Gran % % 0.2 Neutrophils % 72.2 Lymphocytes % 14.8 Monocytes % 11.1 Eosinophils % 1.5 Basophils % 0.2 Absolute Neutrophils (1.2-6.7) k/cumm 3.76 Absolute Lymphocytes (1.2-3.4) k/cumm 0.77 L Absolute Monocytes (0.11-0.7) k/cumm 0.58 Absolute Eosinophils (0.0-0.7) k/cumm 0.08 Absolute Basophils (0.0-0.2) k/cumm 0.01 Sodium (136-145) mmol/L 142 Potassium (3.5-5.1) mmol/L 3.4 L Chloride (98-107) mmol/L 103 Carbon Dioxide (21.0-32.0) mmol/L 27.3 Anion Gap (3-11) mmol/L 11.7 H BUN (7-18) mg/dL 23 H Creatinine (0.70-1.30) mg/dL 1.05 Estimated GFR/1.73 m2 (mL/min/1.73m2) >= 60.00 Glucose (74-106) mg/dL 94 Calcium (8.5-10.1) mg/dL 8.5 Total Bilirubin (0.2-1.0) mg/dL 0.4 AST (15-37) U/L 23 ALT (16-63) U/L 82 H Alkaline Phosphatase (46-116) U/L 115 Total Protein (6.4-8.2) g/dL 7.7 Albumin (3.4-5.0) g/dL 4.2 Lipase (73-393) U/L 123 Sign Out <NAKIA Verdugo - Last Filed: 08/04/19 22:23> Sign Out Data: Sign Out Comment: Patient signed out pending CT as well as urinalysis. Last updated by Chantale Hernandez PA at 08/04/19 17:37
--- NOTE | 2019-08-04 16:12 | DI.RAD_ITS ---
EXAM: XR CHEST 2V PA LATERAL XR CHEST 2V PA LATERAL CLINICAL HISTORY: cough, wheezing cough, wheezing TECHNIQUE: 2D digital imaging was performed. COMPARISON: XR PORTABLE CHEST AP from 03/27/2019 FINDINGS: The heart is not enlarged. The lungs are clear and well expanded. No pleural effusion seen. Mediastin al contours appear intact. IMPRESSION: Normal chest
--- NOTE | 2019-08-04 16:31 | DI.VRAD_ITS ---
PROCEDURE INFORMATION: Exam: XR Chest, 2 Views Exam date and time: 08/04/2019 4:09 PM Age: 29 years old Clinical indication: Cough and wheezing; Patient HX: Cough, wheezing TECHNIQUE: Imaging protocol: XR of the chest Views: 2 views. COMPARISON: XR PORTABLE CHEST AP 03/27/2019 11:48 AM FINDINGS: Lungs: Incomplete inspiration without focal consolidation. Pleural space: Unremarkable. No pleural effusion. No pneumothorax. Heart/Mediastinum: Unremarkable. No cardiomegaly. Bones/joints: Unremarkable. IMPRESSION: Relatively poor inspiratory effort but no focal consolidation to suggest pneumonia Dictated and Authenticated by: Marvin Laboy MD. Ordering:GARY Kenyon MD
--- NOTE | 2019-08-04 16:53 | DI.VRAD_ITS ---
PROCEDURE INFORMATION: Exam: CT Abdomen And Pelvis With Contrast Exam date and time: 08/04/2019 3:57 PM Age: 29 years old Clinical indication: Nausea and vomiting; Patient HX: N/v/d regurgitated food. TECHNIQUE: Imaging protocol: Computed tomography of the abdomen and pelvis with intravenous contrast. Radiation optimization: All CT scans at this facility use at least one of these dose optimization techniques: automated exposure control; mA and/or kV adjustment per patient size (includes targeted exams where dose is matched to clinical indication); or iterative reconstruction. Contrast material: OMNIPAQUE 350; Contrast volume: 100 ml; Contrast route: IV; COMPARISON: No relevant prior studies available. FINDINGS: Lungs: Minimal atelectasis. Liver: Normal. No mass. Gallbladder and bile ducts: Normal. No calcified stones. No ductal dilation. Pancreas: Normal. No ductal dilation. Spleen: Normal. No splenomegaly. Adrenals: Normal. No mass. Kidneys and ureters: Normal. No hydronephrosis. Stomach and bowel: The there is a large air-fluid level in the prominently distended stomach. No dilatation of the small bowel. Relatively large amount of fluid in the colon as compared to the usual air-filled fecal material. Appendix: The appendix is not visualized but there are no secondary signs of appendicitis. Intraperitoneal space: Unremarkable. No free air. No significant fluid collection. Vasculature: Unremarkable. No abdominal aortic aneurysm. Lymph nodes: Unremarkable. No enlarged lymph nodes. Bladder: Unremarkable as visualized. Reproductive: Unremarkable as visualized. Bones/joints: large orthopedic in braces stabilizing an old the fracture deformity of the left acetabulum. There prominent subchondral cyst in the left femoral head. There are diffuse mild congenital deformities of the visualized lower thoracic and lumbar vertebra with narrowing of the central and anterior portions of the vertebra essentially at every level to some extent. Soft tissues: Unremarkable. IMPRESSION: Prominent distention of the stomach as well as unusually large amount of fluid in the colon suggesting gastroenteritis. Dictated and Authenticated by: Marvin Laboy MD. Ordering:GARY Kenyon MD
[2019-08-04] MEDS: Acetaminophen 500 MG TAB 1000 MG PO (18:19)
[2019-08-04 18:46] LABS: Bilirubin Negative (Negative); Blood Negative (Negative); Clarity Clear (Clear); Glucose Negative (Negative); Ketones Negative (Negative); Leukocyte Esterase Negative (Negative); Nitrite Negative (Negative); Urobilinogen 0.2 EU/dL (Up TO 0.2)
[2019-08-04] MEDS: Normal Saline 500 ML IV (19:25)
[2019-08-04] MEDS: Ketorolac 30 MG/ML VIAL IVP (19:25)
== END 2019-08-04 20:30 | disposition home or self-care (01) ==
PROVIDERS: Physician Assistant; Emergency Provider Physician Assistant; PCP Family Medicine
DX: K52.9 Noninfective gastroenteritis and colitis, unspecified (principal); E23.3 Hypothalamic dysfunction, not elsewhere classified
CPT/HCPCS: 80053; 83690; 87449; 96361; 96374; 99285; 71046; 74177; 81003; 85025; 99281; J1885; J2405; J3490

== ENCOUNTER 2019-08-07 20:55 | Inpatient (IN) | payer MEDICAID, SELFPAY ==
[2019-08-07 20:58] VITALS: BP 117/74; PULSE 101; RESP 22; TEMP 36.6
--- NOTE | 2019-08-07 21:08 | ED.GENADUL_ITS ---
Discharge Plan Disposition Patient Disposition: [facility] INPATIENT Condition: Good Discharge Details Chief Complaint: Abd Prob Clinical Impression: Intractable diarrhea Primary Care Provider: Ren Vaz ED Provider: Gabe Jacob Home Meds and New Rx's Prescriptions: No Action trazodone 50 MG tablet 4 tab PO QPM RF: 0 omeprazole 40 MG capsule,delayed release(DR/EC) 1 cap PO DAILY RF: 0 zonisamide 100 MG capsule 2 cap PO QPM RF: 0 desmopressin 0.1 MG tablet 0.15 tab PO QNOON RF: 0 testosterone [AndroGel] 75 GM gel in metered-dose pump 3 applic Topical QAM RF: 0 atorvastatin 40 mg Tablet 40 mg PO DAILY RF: 0 aspirin [Aspir-81] 81 mg Tablet,Delayed Release (Dr/Ec) 1 tab PO DAILY RF: 0 sennosides-docusate sodium [DOK Plus] 8.6-50 mg Tablet 1 tab PO QHS PRNRF: 0 quetiapine [Seroquel] 200 mg Tablet 200 mg PO PRN PRNRF: 0 desmopressin 0.1 mg Tablet 0.1 mg PO QAM RF: 0 cholecalciferol (vitamin D3) [Vitamin D3] 1,000 unit Capsule 1,000 mg PO DAILY RF: 0 ferrous gluconate 324 mg (38 mg iron) Tablet 324 mg PO DAILY RF: 0 levothyroxine 200 mcg Capsule 225 mcg PO DAILY RF: 0 sennosides-docusate sodium [DOK Plus] 8.6-50 mg Tablet 1 tab PO BID RF: 0 calcium carbonate [Tums] 200 mg calcium (500 mg) Tablet,Chewable 200 mg PO DAILY RF: 0 metoprolol succinate 25 mg Tablet Extended Release 24 Hr 75 mg PO DAILY Qty: 1 RF: 0 melatonin 3 mg Tablet 9 mg PO HS RF: 0 baclofen 20 mg Tablet 20 mg PO TID RF: 0 magnesium 250 mg Tablet 250 mg PO BID RF: 0 hydrocortisone 10 mg Tablet 25 mg PO BID Qty: 5 RF: 0 ipratropium-albuterol 0.5 mg-3 mg(2.5 mg base)/3 mL solution for nebulization 3 ml IH QID PRN (Reason: shortness of breath or wheezing) Qty: 90 RF: 0 hydrocortisone 10 mg tablet 10 mg PO QNOON Qty: 0 RF: 0 hydrocortisone [Cortef] 10 MG tablet 20 mg PO QAM Qty: 0 RF: 0 sennosides-docusate sodium [Senexon-S] 8.6-50 mg Tablet 1 tab PO DAILY RF: 0 ondansetron 4 mg tablet,disintegrating 4 mg PO Q6H PRN (Reason: nausea and vomiting) Qty: 10 RF: 0 Medical Decision Making <Candice Sims - Last Filed: 08/08/19 00:18> 29-year-old nonverbal blind patient with a history of CVA, diabetes insipidus, brain tumor, and brain surgery presents with nausea vomiting diarrhea which began at 1900 tonight. He was seen with similar on 08/04/[address] abdomen pelvis which showed inflamed bowel wall and largely benign or unchanged work-up. Physical and history is limited due to patient's nonverbal status. History supplied mostly by family. At this time initial labs are ordered and fluids and nausea medications will be given. 2148: Patient actively vomiting and having diarrhea in department. Has received 4 mg of Zofran IV. Order changed to 500 mils of normal saline per caregiver request due to fluid restrictions from diabetes insipidus. 2207: Head CT and abdomen series ordered to rule out possible obstruction versus neuro involvement for pathology. I did not order another CT abdomen pelvis since he was just CT'd on Friday. 2238: Patient has had a total of 3 episodes of watery diarrhea, C-diff and stool culture ordered. 2328: Patient has had a total of 5 episodes of watery diarrhea. X-ray abdomen shows largely distended stomach at this time I am concern for volvulus versus obstruction. I will CT him again due to this. Magnesium added on to labs. Possible admission for intractable diarrhea and vomiting. Sign out discussed with Dr. Jacob ER attending physician, verbalizes understanding. 0012: Spoke with Dr. Whitney who is on for hospitalist regarding admission of patient he agrees to accept patient for intractable nausea vomiting diarrhea. Head CT: 1. No acute intracranial findings. 2. Prior right craniotomy, right parasellar aneurysm clipping. Remote cavitary tissue loss/encephalomalacia as described. 3. Extensive sinus disease + opacification likely representing chronic sinusitis. Thank you for allowing us to participate in the care of your patient. Dictated and Authenticated by: Keri Claudio MD 08/07/2019 10:46 PM Eastern Time ([place]) XR Abdomen Flat and Upright: TECHNIQUE: Imaging protocol: XR of the abdomen. Frontal supine and upright views of the abdomen. Views: 2 Views. COMPARISON: CT ABDOMEN PELVIS W 08/04/2019 4:00 PM FINDINGS: Gastrointestinal tract: The stomach is markedly distended. The bowel gas pattern is otherwise unremarkable. Intraperitoneal space: There is no evidence of free intraperitoneal air on the decubitus film. Bones/joints: Patient has had prior ORIF of the left acetabulum, left pelvis. Degenerative changes are seen in the left hip. There is no acute bony abnormality. IMPRESSION: 1. Stomach is significantly distended. 2. No evidence of free intraperitoneal air Thank you for allowing us to participate in the care of your patient. Dictated and Authenticated by: Keri Claudio MD 08/07/2019 11:20 PM Eastern Time ([place] & [place]) CT ABD/Pelvis IMPRESSION: 1. Noted acute abnormality in the abdomen and pelvis. 2. Markedly distended stomach is otherwise normal in appearance. Finding is nonspecific but can be seen in setting of gastric outlet obstruction given reported vomiting. Recommend clinical correlation. Dictated and Authenticated by: Hilton Montes MD. Ordering:BILL Harvey MD <Gabe Jacob DO - Last Filed: 08/08/19 01:03> Although the patient was intended to be signed out to ms, Lavinia did contact the hospitalist and the CT scan results returned before she left at the end of her shift. Care was not transitioned to ms but was rather transitioned to the spitalist Dr. Whitney. HPI <Candice Sims - Last Filed: 08/08/19 00:18> General Mode of arrival: ambulatory . Date/Time Provider Initiated Documentation: 08/07/19 21:04 . Limitations to Documentation: altered mental status and physical limitation (Blind, traumatic brain injury, nonverbal is at baseline) . Information obtained by: family . HPI Narrative: 29-year-old male history of TBI and blindness presents for acute onset of nausea vomiting diarrhea at 1900 tonight. Patient is accompanied by caregivers. He was recently seen here on 08/04/2019 for similar complaints had a CT abdomen pelvis which showed inflamed bowel wall. Related Data Home Medications Medication Instructions Recorded Confirmed desmopressin 0.15 tab PO QNOON 12/29/15 08/08/19 omeprazole 1 cap PO DAILY 12/29/15 08/08/19 testosterone [AndroGel] 3 applic TOPICAL QAM 12/29/15 08/08/19 trazodone 4 tab PO QPM 12/29/15 08/08/19 zonisamide 2 cap PO QPM 12/29/15 08/08/19 aspirin [Aspir-81] 1 tab PO DAILY 05/08/18 08/08/19 atorvastatin 40 mg PO DAILY 05/08/18 08/08/19 cholecalciferol (vitamin D3) 1,000 mg PO DAILY 09/09/18 08/08/19 [Vitamin D3] desmopressin 0.1 mg PO QAM 09/09/18 08/08/19 ferrous gluconate 324 mg PO DAILY 09/09/18 08/08/19 levothyroxine 225 mcg PO DAILY 09/09/18 08/08/19 quetiapine [Seroquel] 200 mg PO PRN PRN 09/09/18 08/08/19 sennosides-docusate sodium [DOK 1 tab PO QHS PRN 09/09/18 08/08/19 Plus] calcium carbonate [Tums] 200 mg PO DAILY 03/21/19 08/08/19 sennosides-docusate sodium [DOK 1 tab PO BID 03/21/19 08/08/19 Plus] metoprolol succinate 75 mg PO DAILY #1 tab 03/22/19 08/08/19 baclofen 20 mg PO TID 03/24/19 08/08/19 magnesium 250 mg PO BID 03/24/19 08/08/19 melatonin 9 mg PO HS 03/24/19 08/08/19 hydrocortisone 10 mg PO QNOON #0 tab 03/28/19 08/08/19 hydrocortisone 25 mg PO BID #5 tab 03/28/19 08/04/19 hydrocortisone [Cortef] 20 mg PO QAM #0 tab 03/28/19 08/08/19 ipratropium-albuterol 3 ml IH QID PRN #90 ml 03/28/19 08/08/19 ondansetron 4 mg PO Q6H PRN #10 tab 08/04/19 08/08/19 sennosides-docusate sodium 1 tab PO DAILY 08/04/19 08/08/19 [Senexon-S] Previous Rx's Medication Instructions Recorded metoprolol succinate 75 mg PO DAILY #1 tab 03/22/19 hydrocortisone 10 mg PO QNOON #0 tab 03/28/19 hydrocortisone 25 mg PO BID #5 tab 03/28/19 hydrocortisone [Cortef] 20 mg PO QAM #0 tab 03/28/19 ipratropium-albuterol 3 ml IH QID PRN #90 ml 03/28/19 ondansetron 4 mg PO Q6H PRN #10 tab 08/04/19 Allergies Allergy/AdvReac Type Severity Reaction Status Date / Time gemfibrozil [From Lopid] AdvReac Unknown Unverified 08/07/19 22:08 General Stated Complaint: Abd Prob KWASI: 3 Review of Systems <Candice Sims - Last Filed: 08/08/19 00:18> Narrative: History and review of systems provided by family. Constitutional: Negative for weight loss, normal body habitus, appears uncomfortable. Chest: Denies chest pain, palpitations, irregular rhythm, hypertension. Respiratory: Denies Shortness of breath, cough, hemoptysis. GI: Positive abdominal pain, nausea, vomiting, diarrhea, no constipation. : Denies dysuria, hematuria, flank pain, rectal bleeding. Neuro: Patient is blind, nonverbal, history of TBI. Hematologic: Denies easy bruising, intolerance to heat or cold, hair loss. Gastrointestinal Gastrointestinal: Reports abdominal pain and Reports vomiting PFSH <Candice Sims - Last Filed: 08/08/19 00:18> Medical History Constipation (Chronic) Cortical blindness (Chronic) CVA (cerebral vascular accident) (Resolved) Diabetes insipidus (Chronic) GERD (gastroesophageal reflux disease) (Chronic) History of brain tumor (Resolved) Hx of fracture of pelvis (Resolved) Insomnia (Chronic) Leg cramps (Chronic) 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Chronic) Seizures (Chronic) TBI (traumatic brain injury) (Chronic) Urinary retention (Resolved) Social History Smoking/Tobacco Use Status: Never Alcohol Intake: current Alcohol type: other Drug use: Never Substance use type: does not use Do you feel safe at home: Yes Do you feel safe in your relationship?: Yes Exam <Candice Sims - Last Filed: 08/08/19 00:18> Const Nutritional Appearance: average body habitus and overweight Orientation: awake and other (Nonverbal is at baseline per caregivers) Limitations: language barrier and physical limitations Resp Effort & Inspection: normal respiratory effort Auscultation: clear to auscultation bilaterally Cardio Rate: tachycardic Rhythm: regular rhythm Heart Sounds: S1 normal and S2 normal GI Palpation: firm Auscultation: hypoactive bowel sounds Neuro General: awake Cognition: abnormal cognition Course <Candice Sims - Last Filed: 08/08/19 00:18> Vital Signs Vital signs: Vital Signs Temperature 36.6 C 08/07/19 20:58 Pulse 101 H 08/07/19 20:58 Respiratory Rate 22 08/07/19 20:58 Blood Pressure 117/74 08/07/19 20:58 Temperature 36.6 C 08/07/19 20:58 Temperature Source Temporal Artery Scan 08/07/19 20:58 Pulse 101 H 08/07/19 20:58 Respiratory Rate 22 08/07/19 20:58 Respiratory Effort 08/07/19 21:04 Blood Pressure 117/74 08/07/19 20:58 Oxygen Delivery Method Room Air 08/07/19 20:58 Oxygen Flow Rate 0 08/07/19 20:58 Pain Level 0 08/07/19 21:04 Sign Out <Candice Sims - Last Filed: 08/08/19 00:18> Sign Out Data: Sign Out Comment: Pending CT result and possible admission Last updated by Candice Sims at 08/07/19 23:59
[2019-08-07] MEDS: Ondansetron 4 MG/2 ML VIAL IVP (21:31)
[2019-08-07] MEDS: Normal Saline 1,000 ML 500 ML IV (21:31)
[2019-08-07 21:36] LABS: Abs Immature Grans 0.02 k/cumm (0.0-0.09); Absolute Basophil Count 0.01 k/cumm (0.0-0.2); Absolute Eosinophil Count 0.07 k/cumm (0.0-0.7); Absolute Lymphocyte Count 0.89 k/cumm (1.2-3.4); Absolute Monocyte Count 0.34 k/cumm (0.11-0.7); Absolute Neutrophil Count 1.93 k/cumm (1.2-6.7); Basophils % 0.3; Eosinophils % 2.1; HCT 37.5 % (40.0-50.0); HGB 13.1 g/dL (13.5-17.5); Immature Grans % 0.6 %; Lymphocytes % 27.3; Mean Corp. HGB Concentration 34.9 g/dL (32.0-36.0); Mean Corpuscular Hemoglobin 26.6 pg (27.0-33.0); Mean Corpuscular Volume 76.1 fL (80-95); Mean Platelet Volume 9.4 fL (8.0-11.0); Monocytes % 10.4; Neutrophils % 59.3; Platelet Count 227 x1000/uL (130-400); RBC 4.93 m/cumm (4.50-6.00); RBC Distribution Width 15.1 % (11.8-14.1); White Blood Cell Count 3.26 k/cumm (4.4-10.8)
[2019-08-07 21:49] LABS: ALT 76 U/L (16-63); AST 32 U/L (15-37); Alkaline Phosphatase 97 U/L (46-116); Anion Gap 13.1 mmol/L (3-11); BUN 15 mg/dL (7-18); Bilirubin, Total 0.2 mg/dL (0.2-1.0); CO2 24.9 mmol/L (21.0-32.0); CREATININE 0.97 mg/dL (0.70-1.30); Calcium 8.6 mg/dL (8.5-10.1); Chloride 99 mmol/L (98-107); Glucose 91 mg/dL (74-106); Lipase 121 U/L (73-393); Potassium 3.6 mmol/L (3.5-5.1); Sodium 137 mmol/L (136-145); Total Protein 7.5 g/dL (6.4-8.2)
--- NOTE | 2019-08-07 22:07 | DI.CT_ITS ---
EXAM: CT HEAD WO CLINICAL HISTORY: Vomiting. TECHNIQUE: Imaging Protocol: Axial computed tomography images with coronal and sagittal reformatted images were created and reviewed COMPARISON: CT HEAD WO from 03/21/2019 FINDINGS: Ventricles and Extra axial spaces: There is again seen a large area of encephalomalacia involving the right frontal and temporal lobes. There is an aneurysm clip in the right parasellar region again no ivana. No acute territorial infarct is seen. Hemorrhage: None. Cerebral parenchyma: Encephalomalacia as described above. Midline shift: No acute midline shift. Brainstem/Cerebellum: Normal. Calvarium: Prior right craniotomy. No acute fracture. Visualized Paranasal sinuses/Mastoids: Near complete opacification the right maxillary sinus, bilater al sphenoid sinuses and right mastoid air cells. There is mucosal thickening in the left maxillary si nus and frontal sinuses. IMPRESSION: 1. No acute intracranial process. 2. Extensive sinus disease. This likely reflects chronic sinusitis. 3. Right parasellar aneurysm clip. Stable encephalomalacia involving portions of the right frontal a nd temporal lobes. DATA REPOSITORY: All CT scans at this facility are submitted to the National Radiology Data Registry (NRDR) Dose Index Registry (DIR) with the [employer] (ACR). RADIATION OPTIMIZATION: All CT scans at this facility use at least one of these dose optimization te chniques: automated exposure control; mA and/or kV adjustment per patient size (includes targeted exa ms where dose is matched to clinical indication); or iterative reconstruction.
[2019-08-07] MEDS: Normal Saline Flush 10 ML SYR IVP (22:11)
--- NOTE | 2019-08-07 22:13 | NUR.NOTE ---
Nursing Note: Pt had profuse vomiting x 1 as well as an episode of diarrhea. Provider aware.
--- NOTE | 2019-08-07 22:37 | DI.RAD_ITS ---
EXAM: XR ABDOMEN FLAT UPRIGHT INDICATION: Vomiting. COMPARISON: No exams were available for comparison TECHNIQUE: 2D digital imaging was performed. FINDINGS: There is marked distension the stomach with both gas and food material. The bowel gas pattern is oth erwise unremarkable. Organomegaly is seen. No pneumoperitoneum is identified. Degenerative changes are seen in the spine. There are postsurgical changes of internal fixation of the left hemipelvis. IMPRESSION: Significantly distended stomach. No pneumoperitoneum.
[2019-08-07 22:44] VITALS: BP 112/65; PULSE 78; RESP 19; O2SAT 96
--- NOTE | 2019-08-07 22:44 | DI.VRAD_ITS ---
PROCEDURE INFORMATION: Exam: CT Head Without Contrast Exam date and time: 08/07/2019 10:07 PM Age: 29 years old Clinical indication: Other: Vomiting TECHNIQUE: Imaging protocol: Computed tomography of the head without contrast. COMPARISON: CT HEAD WO 03/21/2019 1:02 PM FINDINGS: Brain: Patient has had remote right frontal craniotomy. Right parasellar aneurysm clip is noted. There is remote cavitary tissue loss/encephalomalacia involving the anterior right frontal lobe, anterior right temporal lobe. There is ex vacuo enlargement of the frontal horn, temporal horn of the lateral ventricles. There is tissue loss/encephalomalacia in the anterior right thalamus, genu of the right internal capsule. There is probable minimal anterior tissue loss noted the left genu of internal capsule best seen on series 6 image 31. These changes are remote/chronic. There is no acute hemorrhage, mass or shift. There is no CT evidence of an acute cortical or major vascular territory infarct. No abnormal extra-axial collections are identified. Ventricles: There is ex vacuo enlargement of the frontal horn, temporal horns of the right lateral ventricle. There is no significant ventricular enlargement/hydrocephalus Bones/joints: There is no acute bony abnormality. Sinuses: There is near-complete opacification of the right maxillary antrum and the sphenoid sinus. There is prominent right ethmoid opacification. Material within the sinuses is heterogeneous, with regions of hyperdensity consistent with inspissated proteinaceous secretions. Mastoid air cells: No significant mastoid, middle ear opacification. Orbits: No significant orbital abnormality Soft tissues: No significant abnormality. IMPRESSION: 1. No acute intracranial findings. 2. Prior right craniotomy, right parasellar aneurysm clipping. Remote cavitary tissue loss/encephalomalacia as described. 3. Extensive sinus disease + opacification likely representing chronic sinusitis. Dictated and Authenticated by: Keri Claudio MD. Ordering:BILL Harvey MD
[2019-08-07] MEDS: Loperamide 2 MG CAP 4 MG PO (23:13)
--- NOTE | 2019-08-07 23:18 | DI.VRAD_ITS ---
PROCEDURE INFORMATION: Exam: XR Abdomen, 2 Views Exam date and time: 08/07/2019 10:38 PM Age: 29 years old Clinical indication: Vomiting; Prior surgery TECHNIQUE: Imaging protocol: XR of the abdomen. Frontal supine and upright views of the abdomen. Views: 2 Views. COMPARISON: CT ABDOMEN PELVIS W 08/04/2019 4:00 PM FINDINGS: Gastrointestinal tract: The stomach is markedly distended. The bowel gas pattern is otherwise unremarkable. Intraperitoneal space: There is no evidence of free intraperitoneal air on the decubitus film. Bones/joints: Patient has had prior ORIF of the left acetabulum, left pelvis. Degenerative changes are seen in the left hip. There is no acute bony abnormality. IMPRESSION: 1. Stomach is significantly distended. 2. No evidence of free intraperitoneal air Dictated and Authenticated by: Keri Claudio MD. Ordering:BILL Harvey MD
--- NOTE | 2019-08-07 23:23 | DI.CT_ITS ---
EXAM: CT ABDOMEN PELVIS W CLINICAL HISTORY: Vomiting. TECHNIQUE: Imaging Protocol: Axial computed tomography images with coronal and sagittal reformatted images were created and reviewed CONTRAST MATERIAL: Intravenous: Omnipaque 350 Contrast volume:100 mL Oral: No COMPARISON: CT ABDOMEN PELVIS W from 08/04/2019 FINDINGS: ABDOMEN: Lung Bases: Normal where visualized. Liver: Normal density. No measurable mass. Gallbladder and biliary tract: No radiodense calculus or dilation. Pancreas: Normal density, no abnormal calcifications or inflammatory process. Spleen: Normal. Kidneys: Normal size, contour and axis. No radiodense stones or obstructive uropathy. No masses seen. Adrenal glands: No masses seen. Abdominal Aorta: Abdominal portion non-dilated. PELVIS: Bladder: Symmetric distention, no gross wall thickening. Bowel: Stomach is markedly distended. It is increased in size compared to the prior examination. It is otherwise unremarkable. Fluid-filled loops of bowel are present. This can be seen with enteriti s/diarrheal component. Peritoneal cavity: No ascites, collection or mesenteric inflammatory response. Bones: Side plates and screws are seen transfixing an old left lexus pelvic injury. Degenerative collazo ges are seen in the spine. Reproductive organs: Within normal limits. Lymph nodes: Unremarkable. Other findings: There is patient motion artifact. This limits evaluation. Impression: 1. Marked distention of the stomach. This has progressed since the prior examination. Gastric outle t obstruction cannot be excluded. Please correlate clinically. 2. Fluid-filled loops of small and large bowel. This may reflect an inflammatory or infectious proce ss. DATA REPOSITORY: All CT scans at this facility are submitted to the National Radiology Data Registry (NRDR) Dose Index Registry (DIR) with the [employer] (ACR). RADIATION OPTIMIZATION: All CT scans at this facility use at least one of these dose optimization te chniques: automated exposure control; mA and/or kV adjustment per patient size (includes targeted exa ms where dose is matched to clinical indication); or iterative reconstruction.
[2019-08-07 23:39] LABS: Magnesium 1.7 mg/dL (1.8-2.4)
[2019-08-07 23:50] VITALS: BP 120/76; PULSE 98; RESP 18
[2019-08-07] MEDS: Omnipaque 350 MG/ML 100 ML BTL IJ (23:51)
[2019-08-08] VITALS (20 sets, daily range): BP systolic 99–134; BP diastolic 52–74; PULSE 59–99; RESP 10–22; TEMP 36–38.4; O2SAT 92–98
--- NOTE | 2019-08-08 00:08 | NUR.NOTE ---
Nursing Note: Pt resting comfortably at this time. total of 5 diarrhea stools
--- NOTE | 2019-08-08 00:13 | DI.VRAD_ITS ---
PROCEDURE INFORMATION: Exam: CT Abdomen And Pelvis With Contrast Exam date and time: 08/07/2019 11:42 PM Age: 29 years old Clinical indication: Vomiting; Prior surgery TECHNIQUE: Imaging protocol: Computed tomography of the abdomen and pelvis with intravenous contrast. COMPARISON: CT ABDOMEN PELVIS W 08/04/2019 4:00 PM FINDINGS: Lungs: Visualized lung bases are unremarkable. Liver: The liver is normal. Gallbladder and bile ducts: The gallbladder is normal. Pancreas: The pancreas is normal. Spleen: The spleen is normal. Adrenals: The adrenal glands are normal. Kidneys and ureters: The kidneys are normal. Stomach and bowel: Similar appearing markedly distended stomach which is otherwise normal in appearance. Normal appearance of the small and large bowel. Appendix: The appendix is not definitely visualized. No secondary signs of appendicitis in the right lower quadrant. Intraperitoneal space: Unremarkable. No free air. No significant fluid collection. Vasculature: The aorta is normal. Lymph nodes: Unremarkable. No enlarged lymph nodes. Bladder: The bladder is normal. Reproductive: Unremarkable as visualized. Bones/joints: Plate and screw fixation of the left pelvis/left hip Similar extensive degenerative changes about the left hip. Unchanged diffuse vertebral body height loss visualized thoracolumbar spine. Soft tissues: Trace soft tissue edema along left lateral abdomen/pelvic wall. Other findings: Motion degradation somewhat limits evaluation. IMPRESSION: 1. Noted acute abnormality in the abdomen and pelvis. 2. Markedly distended stomach is otherwise normal in appearance. Finding is nonspecific but can be seen in setting of gastric outlet obstruction given reported vomiting. Recommend clinical correlation. Dictated and Authenticated by: Hilton Montes MD. Ordering:BILL Harvey MD
--- NOTE | 2019-08-08 02:00 | HPE_ITS ---
Date of service: 08/08/19 Time of Service: 02:01 Assessment and Plan Assessment and plan (1) Vomiting: Status: Acute Assessment and plan: Although gastroenteritis is possible, I am more suspicious that he may have gastric outlet obstruction as the cause of his symptoms as noted below. His diarrhea may represent post obstructive evacuation of bowels. That said, stool studies have been ordered for bacterial pathogens. C. difficile toxin negative. IV fluids. Antiemetics. (2) Gastric outlet obstruction: Status: Acute Assessment and plan: History highly suggestive of gastric outlet obs truction. He has pica and is possible there is foreign body obstruction although nothing seen on CT scan. It is possible he has peptic ulcer disease causing gastric outlet obstruction. I think EGD indicated. Surgical consultation placed. Treat with IV PPI. N.p.o. except limited meds. (3) Seizures: Status: Chronic Assessment and plan: None in years according to caregivers. Continue zonisamide p.o., presuming he can tolerate p.o. (4) Panhypopituitarism: Status: Chronic Assessment and plan: He has been stable on his outpatient doses of hydrocortisone, thyroid and desmopressin. While n.p.o. we will give stress dose steroids, I think it is unlikely to cause problems to skip a dose of p.o. levothyroxine rather than use parenteral route. Check free T4 (TSH will be uninterpretable because of central cause of his hypothyroidism). Subcutaneous desmopressin until he can resume oral dosing. IV fluids with close monitoring of sodium level. Topical testosterone on hold for the short-term. (5) Leg cramps: Status: Chronic Assessment and plan: Cause not clear. I will use IV lorazepam while he is n.p.o. (6) GERD (gastroesophageal reflux disease): Status: Chronic Assessment and plan: Management as above with IV PPI. EGD to assess for gastric outlet obstruction. (7) Diabetes insipidus: Status: Chronic Assessment and plan: Subcutaneous desmopressin while n.p.o. Monitor sodium level, weight and fluid balance as best as possible in someone who is not able to cooperate. (8) Acute febrile illness: Status: Resolved Assessment and plan: No prior fever and no prior symptoms of respiratory or problems. Check urinalysis. Urinalysis was normal 3 days ago. Monitor for clinical symptoms of infection. This may be related to his gastric outlet obstruction. Hopefully he has not aspirated with his vomiting. Follow SaO2 and lung exam. Blood cultures to be obtained. Hold off on antibiotics at this point. (9) On beta gui at home: Status: Acute Assessment and plan: I cannot find a diagnosis to explain his use of metoprolol at home. That being said I will continue metoprolol parenterally with parameters for holding depending upon pulse rate and blood pressure. 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 He was in the ER 3 days ago with the acute onset of nonbilious, nonbloody vomiting which included undigested food. Acute onset with no prodromal symptoms at that time. He also, after vomiting 3 times over the course of an hour, developed nonbloody non-mucousy diarrhea. Evaluation in the ER was unrevealing for a cause. CT scan of the abdomen showed small bowel and stomach distention. There was no evidence of obstruction. He was discharged with symptom treatment. He seemed to be back to his usual state in less than 12 hours although a little sleepy, which per his caregivers, is not unusual after he has had any form of illness. In retrospect, prior to his initial presentation with vomiting 3 days ago, he seemed to be more agitated which occurs, again per caregivers, when he is under any form of physical or emotional distress. On the morning of admission he seemed to be fine, acting and eating normally. Around 7 PM, before his evening snack and his evening medications, he had the acute onset of vomiting, again nonbilious and nonbloody. His abdomen seem to be distended and he was indicating there was some discomfort. He was brought to the emergency room where he had repeated bouts of vomiting as well as the onset again of watery nonbloody diarrhea. His vomiting did not respond to ondansetron. He received IV promethazine which sedated him and he has not had vomiting since although caregivers think his abdomen is still distended. CT scan again shows gastric distention, no obvious foreign body. There may be some thickening of the duodenal wall. Caregiver states that he puts anything in his mouth. He always seems to be hungry. They have found foreign material in his stool at times including string. If not watched he might eat [employer]. No one else in the house has had GI symptoms. He does not have any known history of peptic ulcer disease but is on a PPI for GERD. There is been no melanotic stool. Normally he is able to feed himself, ambulate with or without assistance. He is usually cracking jokes, is able to tell if he is hurting. There have been increasing concerns regarding cramps in his left leg for which baclofen has been partially effective. He has not had any fever at home. There have been no complaints of dysuria. He has had no cough or recent episodes of wheezing. Review of Systems Narrative: As per HPI otherwise unable to get from patient because of sedation from recent medication. Unobtainable due to mental condition PENDING SALE TO [facility] Medical History Constipation (Chronic) Cortical blindness (Chronic) CVA (cerebral vascular accident) (Resolved) Diabetes insipidus (Chronic) GERD (gastroesophageal reflux disease) (Chronic) History of brain tumor (Resolved) Hx of fracture of pelvis (Resolved) Insomnia (Chronic) Leg cramps (Chronic) 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Chronic) Seizures (Chronic) TBI (traumatic brain injury) (Chronic) Urinary retention (Resolved) Social History Smoking/Tobacco Use Status: Never Alcohol Intake: current Alcohol type: other Drug use: Never Substance use type: does not use Do you feel safe at home: Yes Do you feel safe in your relationship?: Yes Meds Home Medications and Allergies Home Medications Medication Instructions Recorded Confirmed Type desmopressin 0.15 tab PO QNOON 12/29/15 08/08/19 History omeprazole 1 cap PO DAILY 12/29/15 08/08/19 History testosterone [AndroGel] 3 applic TOPICAL QAM 12/29/15 08/08/19 History trazodone 4 tab PO QPM 12/29/15 08/08/19 History zonisamide 2 cap PO QPM 12/29/15 08/08/19 History aspirin [Aspir-81] 1 tab PO DAILY 05/08/18 08/08/19 History atorvastatin 40 mg PO DAILY 05/08/18 08/08/19 History cholecalciferol (vitamin D3) 1,000 mg PO DAILY 09/09/18 08/08/19 History [Vitamin D3] desmopressin 0.1 mg PO QAM 09/09/18 08/08/19 History ferrous gluconate 324 mg PO DAILY 09/09/18 08/08/19 History levothyroxine 225 mcg PO DAILY 09/09/18 08/08/19 History quetiapine [Seroquel] 200 mg PO PRN PRN 09/09/18 08/08/19 History sennosides-docusate sodium [DOK 1 tab PO QHS PRN 09/09/18 08/08/19 History Plus] calcium carbonate [Tums] 200 mg PO DAILY 03/21/19 08/08/19 History sennosides-docusate sodium [DOK 1 tab PO BID 03/21/19 08/08/19 History Plus] metoprolol succinate 75 mg PO DAILY #1 tab 03/22/19 08/08/19 Rx baclofen 20 mg PO TID 03/24/19 08/08/19 History magnesium 250 mg PO BID 03/24/19 08/08/19 History melatonin 9 mg PO HS 03/24/19 08/08/19 History hydrocortisone 10 mg PO QNOON #0 tab 03/28/19 08/08/19 Rx hydrocortisone 25 mg PO BID #5 tab 03/28/19 08/04/19 Rx hydrocortisone [Cortef] 20 mg PO QAM #0 tab 03/28/19 08/08/19 Rx ipratropium-albuterol 3 ml IH QID PRN #90 ml 03/28/19 08/08/19 Rx ondansetron 4 mg PO Q6H PRN #10 tab 08/04/19 08/08/19 Rx sennosides-docusate sodium 1 tab PO DAILY 08/04/19 08/08/19 History [Senexon-S] Allergies Allergy/AdvReac Type Severity Reaction Status Date / Time gemfibrozil [From Lopid] AdvReac Unknown Unverified 08/07/19 22:08 Exam Narrative Exam Narrative: Overweight young man sedated from recent promethazine injection. He does open his eyes to verbal stimuli and will squeeze hands to request. Initially afebrile but became febrile after arrival on the floor. Blood pressure 10 4-1 20 systolic pulse rate in the upper 90s sinus rhythm on monitor, SaO2 96% on room air. Caregivers think his eyes are a little sunken, I have never met him before to be able to machine stoppage frequency checker. He is blind. Oropharynx with moist mucous membranes and no lesions visible. Cannot see his neck veins because of neck size. No cervical or supraclavicular adenopathy. Lungs clear in the upper lung medellin diminished breath sounds at both bases no crackles wheeze or rub heard. Mildly tachycardic with no murmur S3 or S4. Abdomen is distended, tympanitic. There are bowel sounds present but they are diminished. He does not manifest any discomfort with palpation anywhere in the abdomen which is distended but not rigid. Rectal exam was not performed. No lesions of the scrotum or external genitalia. Normal pulses at the wrist slightly diminished at the ankles. He has flexion contractures of both knees left a little more p ronounced than right. Left leg is slightly atrophied compared to right. He has spontaneous movement of all extremities. I did not elicit DTRs anywhere. Results CT scan of the abdomen shows gastric distention, uniform appearance with no obvious foreign body. Question if there are some changes in the gastric outlet or duodenum Labs Result diagrams: 08/07/19 21:25 08/07/19 21:25 Labs: Laboratory Results - last 24 hr 08/07/19 08/07/19 08/07/19 21:25 21:25 21:25 WBC 3.26 L RBC 4.93 Hgb 13.1 L Hct 37.5 L MCV 76.1 L MCH 26.6 L MCHC 34.9 RDW 15.1 H Plt Count 227 MPV 9.4 Immature Gran % 0.6 Neutrophils % 59.3 Lymphocytes % 27.3 Monocytes % 10.4 Eosinophils % 2.1 Basophils % 0.3 Absolute Neutrophils 1.93 Absolute Lymphocytes 0.89 L Absolute Monocytes 0.34 Absolute Eosinophils 0.07 Absolute Basophils 0.01 Sodium 137 Potassium 3.6 Chloride 99 Carbon Dioxide 24.9 Anion Gap 13.1 H BUN 15 Creatinine 0.97 Estimated GFR/1.73 m2 >= 60.00 Glucose 91 Calcium 8.6 Magnesium 1.7 L Total Bilirubin 0.2 AST 32 ALT 76 H Alkaline Phosphatase 97 Total Protein 7.5 Albumin 4.0 Lipase 121 Last Vital Signs Temp 38.4 C H 08/08/19 01:13 Pulse 99 H 08/08/19 01:13 Resp 22 08/08/19 01:13 BP 104/72 08/08/19 01:13 Pulse Ox 97 08/08/19 01:13
[2019-08-08 02:16] LABS: Acetaminophen < 2 ug/mL (10-30)
[2019-08-08] MEDS: Normal Saline Flush 10 ML SYR IVP ×5 (02:38→20:54)
[2019-08-08] MEDS: Hydrocortisone SOD SUC. 100 MG VIAL IVP ×3 (02:38→17:50)
[2019-08-08] MEDS: DEXTROSE 5%-LACTATED RINGERS 1,000 ML 100 ML IV ×3 (02:38→15:56)
[2019-08-08] MEDS: ACETAMINOPHEN 1,000 MG/100 ML BTL 400 MG IVPB (03:29)
[2019-08-08 07:37] LABS: HCT 33.3 % (40.0-50.0); HGB 11.3 g/dL (13.5-17.5); Mean Corp. HGB Concentration 33.9 g/dL (32.0-36.0); Mean Corpuscular Hemoglobin 26.2 pg (27.0-33.0); Mean Corpuscular Volume 77.1 fL (80-95); Mean Platelet Volume 9.6 fL (8.0-11.0); Platelet Count 226 x1000/uL (130-400); RBC 4.32 m/cumm (4.50-6.00); RBC Distribution Width 15.1 % (11.8-14.1); White Blood Cell Count 3.71 k/cumm (4.4-10.8)
[2019-08-08 07:43] LABS: Anion Gap 11.4 mmol/L (3-11); BUN 17 mg/dL (7-18); CO2 22.6 mmol/L (21.0-32.0); CREATININE 0.94 mg/dL (0.70-1.30); Calcium 7.8 mg/dL (8.5-10.1); Chloride 103 mmol/L (98-107); Glucose 106 mg/dL (74-106); Potassium 3.4 mmol/L (3.5-5.1); Sodium 137 mmol/L (136-145)
[2019-08-08] MEDS: Pantoprazole 40 MG VIAL IVP ×2 (07:51→20:53)
[2019-08-08 08:08] LABS: FREE T4 0.95 ng/dL (0.76-1.46)
[2019-08-08] MEDS: Normal Saline 500 ML 50 ML IV (09:42)
[2019-08-08] MEDS: MAGNESIUM SULFATE 2 GM/50 ML BAG IVPB (09:42)
[2019-08-08] MEDS: POTASSIUM CHLORIDE 20 MEQ/100 ML BAG 50 MEQ IVPB ×2 (09:42→12:08)
--- NOTE | 2019-08-08 10:17 | DI.RAD_ITS ---
EXAM: XR PORTABLE CHEST AP INDICATION: concern for aspiration pneumonia. COMPARISON: XR CHEST 2V PA LATERAL from 08/04/2019 TECHNIQUE: 2D digital imaging was performed. FINDINGS: Heart size is within normal limits. No infiltrates are seen. No pleural effusion or pneumothorax is present. Bones and joints are unremarkable. IMPRESSION: Acute pulmonary process.
--- NOTE | 2019-08-08 10:39 | DI.VRAD_ITS ---
PROCEDURE INFORMATION: Exam: XR Chest, 1 View Exam date and time: 08/08/2019 10:21 AM Age: 29 years old Clinical indication: Other: ? Aspriation pneumonia TECHNIQUE: Imaging protocol: XR of the chest Views: 1 view. COMPARISON: CR XR CHEST 2V PA LATERAL 08/04/2019 4:09 PM FINDINGS: Lungs: No focal consolidation. Pleural space: Unremarkable. No pleural effusion. No pneumothorax. Heart/Mediastinum: Stable cardiac silhouette Bones/joints: Unremarkable. Other findings: Overlying EKG wires IMPRESSION: No focal consolidation. Dictated and Authenticated by: Marino Lepe MD. Ordering:GILDARDO Thorpe MD
--- NOTE | 2019-08-08 10:40 | PGE_ITS ---
Date of Service Date of service: 08/08/19 Time of Service: 10:40 Subjective Subjective Interval history since last seen: Mr Burgos is seen with his statistics professor at the bedside. Per her, he is sleepier and less vocal than normal for this time of day. He is easily arousable. Denies dizziness, chest pain, shortness of breath, nausea, vomiting, abdominal pain. He has not had any BM's since last night. Nursing reports that he has not had any UOP - bladder scans are being ordered. Afebrile since about 7 am this morning. Until then, T max 38.4. Portable film of the chest ruled out aspiration pneumonia. UA/C&S/straight cath are being ordered. Dr Eldridge will see the patient shortly; recommends multi view films of the abdomen - now ordered. Patient was placed on tele to monitor for seizures and since he is written for IV lopressor. Objective Objective Clinical Data: Abnormal lab results 08/07/19 08/07/19 08/07/19 Range/Units 21:25 21:25 21:25 WBC 3.26 L (4.4-10.8) k/cumm RBC (4.50-6.00) m/cumm Hgb 13.1 L (13.5-17.5) g/dL Hct 37.5 L (40.0-50.0) % MCV 76.1 L (80-95) fL MCH 26.6 L (27.0-33.0) pg RDW 15.1 H (11.8-14.1) % Absolute Lymphocytes 0.89 L (1.2-3.4) k/cumm Potassium (3.5-5.1) mmol/L Anion Gap 13.1 H (3-11) mmol/L Calcium (8.5-10.1) mg/dL Magnesium 1.7 L (1.8-2.4) mg/dL ALT 76 H (16-63) U/L 08/08/19 08/08/19 Range/Units 06:40 06:40 WBC 3.71 L (4.4-10.8) k/cumm RBC 4.32 L (4.50-6.00) m/cumm Hgb 11.3 L (13.5-17.5) g/dL Hct 33.3 L (40.0-50.0) % MCV 77.1 L (80-95) fL MCH 26.2 L (27.0-33.0) pg RDW 15.1 H (11.8-14.1) % Absolute Lymphocytes (1.2-3.4) k/cumm Potassium 3.4 L (3.5-5.1) mmol/L Anion Gap 11.4 H (3-11) mmol/L Calcium 7.8 L (8.5-10.1) mg/dL Magnesium (1.8-2.4) mg/dL ALT (16-63) U/L Vital Signs Temperature 36.4 C L 08/08/19 07:40 Temperature Source Tympanic 08/08/19 07:40 Pulse 87 08/08/19 07:51 Pulse Rhythm Regular 08/08/19 01:13 Respiratory Rate 18 08/08/19 07:40 Respiratory Effort Non-Labored 08/08/19 01:13 Respiratory Depth Shallow 08/08/19 01:13 Respiratory Pattern Tachypnea 08/08/19 01:13 Blood Pressure 101/56 L 08/08/19 07:51 Pulse Oximetry 93 L 08/08/19 07:40 Oxygen Delivery Method Room Air 08/08/19 07:40 Oxygen Flow Rate 0 08/08/19 07:40 Pain Level 0 08/08/19 07:40 Intake & Output 08/07/19 08/07/19 08/08/19 11:59 23:59 11:59 Intake Total 1050.5 / 1050.5 100 / 100 Balance 1050.5 / 1050.5 100 / 100 Weight 96.162 kg 96.162 kg Intake: IV 1050.5 / 1050.5 100 / 100 Laboratory Results WBC 3.71 k/cumm (4.4-10.8) L 08/08/19 06:40 RBC 4.32 m/cumm (4.50-6.00) L 08/08/19 06:40 Hgb 11.3 g/dL (13.5-17.5) L 08/08/19 06:40 Hct 33.3 % (40.0-50.0) L 08/08/19 06:40 MCV 77.1 fL (80-95) L 08/08/19 06:40 MCH 26.2 pg (27.0-33.0) L 08/08/19 06:40 MCHC 33.9 g/dL (32.0-36.0) 08/08/19 06:40 RDW 15.1 % (11.8-14.1) H 08/08/19 06:40 Plt Count 226 x1000/uL (130-400) 08/08/19 06:40 MPV 9.6 fL (8.0-11.0) 08/08/19 06:40 Immature Gran % 0.6 % 08/07/19 21:25 Neutrophils % 59.3 08/07/19 21:25 Lymphocytes % 27.3 08/07/19 21:25 Monocytes % 10.4 08/07/19 21:25 Eosinophils % 2.1 08/07/19 21:25 Basophils % 0.3 08/07/19 21:25 Absolute Neutrophils 1.93 k/cumm (1.2-6.7) 08/07/19 21:25 Absolute Lymphocytes 0.89 k/cumm (1.2-3.4) L 08/07/19 21:25 Absolute Monocytes 0.34 k/cumm (0.11-0.7) 08/07/19 21:25 Absolute Eosinophils 0.07 k/cumm (0.0-0.7) 08/07/19 21:25 Absolute Basophils 0.01 k/cumm (0.0-0.2) 08/07/19 21:25 Sodium 137 mmol/L (136-145) 08/08/19 06:40 Potassium 3.4 mmol/L (3.5-5.1) L 08/08/19 06:40 Chloride 103 mmol/L (98-107) 08/08/19 06:40 Carbon Dioxide 22.6 mmol/L (21.0-32.0) 08/08/19 06:40 Anion Gap 11.4 mmol/L (3-11) H 08/08/19 06:40 BUN 17 mg/dL (7-18) 08/08/19 06:40 Creatinine 0.94 mg/dL (0.70-1.30) 08/08/19 06:40 Estimated GFR/1.73 m2 >= 60.00 (mL/min/1.73m2) 08/08/19 06:40 Glucose 106 mg/dL (74-106) 08/08/19 06:40 Calcium 7.8 mg/dL (8.5-10.1) L 08/08/19 06:40 Magnesium 1.7 mg/dL (1.8-2.4) L 08/07/19 21:25 Total Bilirubin 0.2 mg/dL (0.2-1.0) 08/07/19 21:25 AST 32 U/L (15-37) 08/07/19 21:25 ALT 76 U/L (16-63) H 08/07/19 21:25 Alkaline Phosphatase 97 U/L (46-116) 08/07/19 21:25 Total Protein 7.5 g/dL (6.4-8.2) 08/07/19 21:25 Albumin 4.0 g/dL (3.4-5.0) 08/07/19 21:25 Lipase 121 U/L (73-393) 08/07/19 21:25 Free T4 0.95 ng/dL (0.76-1.46) 08/08/19 06:40 Acetaminophen < 2 ug/mL (10-30) 08/07/19 21:25
--- NOTE | 2019-08-08 11:09 | DI.RAD_ITS ---
EXAM: XR ABDOMEN FLAT UPRIGHT INDICATION: foreign body. COMPARISON: XR ABDOMEN FLAT UPRIGHT from 08/07/2019 TECHNIQUE: 2D digital imaging was performed. FINDINGS: Examination is suboptimal due to poor patient cooperation. There is contrast seen in the urinary tyron dder from the patient's recent CT scan. Sideplate and screws are again seen in the left hemipelvis. Air-filled loops of small and large bowel are present. This may represent an ileus. Degenerative c hanges are seen in the spine.
--- NOTE | 2019-08-08 11:31 | DI.VRAD_ITS ---
PROCEDURE INFORMATION: Exam: XR Abdomen, 2 Views Exam date and time: 08/08/2019 11:10 AM Age: 29 years old Clinical indication: Other: ? Fb TECHNIQUE: Imaging protocol: XR of the abdomen. Frontal supine and upright views of the abdomen. Views: 2 Views. COMPARISON: CR XR ABDOMEN FLAT UPRIGHT 08/07/2019 10:37 PM FINDINGS: Gastrointestinal tract: Multiple loops of distended bowel may represent obstruction or ileus. Intraperitoneal space: Normal. No free air. Organs: Intravenous contrast in the bladder Bones/joints: Degenerative changes in the left hip Multiple compression fractures of unknown age in the thoracolumbar spine Malleable plate and screws in the left acetabulum and left hemipelvis Soft tissues: No radiopaque foreign body identified IMPRESSION: Multiple loops of distended bowel may represent obstruction or ileus. Dictated and Authenticated by: Marino Lepe MD. Ordering:GILDARDO Thorpe MD
--- NOTE | 2019-08-08 12:33 | INITIAL_ITS ---
- If Service Date Differs Date of service: 08/08/19 Time of Service: 12:33 Care Management Initial Assess REASON FOR HOSPITALIZATION:: Irretractable vomiting, gastric outlet obstruction PAST MEDICAL HISTORY/PAST SURGICAL HISTORY:: Medical/Surgical History: C onstipation (Chronic), Cortical blindness (Chronic),. CVA (cerebral vascular accident) (Resolved), Diabetes insipidus (Chronic),. GERD (gastroesophageal reflux disease) (Chronic), History of brain tumor (Resolved), Hx of fracture of pelvis (Resolved), Insomnia (Chronic),. Leg cramps (Chronic), 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Chronic), Seizures (Chronic),. TBI (traumatic brain injury) (Chronic), and Urinary retention (Resolved). PREVIOUS FUNCTIONAL STATUS/SOCIAL/FAMILY SUPPORTS:: Miguel Angel lives in a nursing home in [place] with 24/7 caregiver support through [facility]. Miguel Angel's sister, Bettina, who resides out of the area, is his appointed guardian. Miguel Angel's bilingual customer service at [facility] is Malcom Shea. CURRENT FUNCTIONAL STATUS:: Miguel Angel is not in the room when LUCAS comes to meet with him. CM meets with his caregivers who are present at the hospital. Malcom, his bilingual customer service, reports that Miguel Angel is blind and that he enjoys tossing a ball and coloring. ADVANCE DIRECTIVES:: None on file. Miguel Angel's sister, Bettina, is his guardian. Has patient been provided with information about the portal?: No Did the patient sign up for the portal?: No CODE STATUS:: Full Code INSURANCE COVERAGE / FINANCIAL ISSUES:: Medicaid. CURRENT HOME/COMMUNITY SERVICES/EQUIPMENT:: Miguel Angel has 24/7 caregiver support through [facility]. PRIMARY CARE PHYSICIAN:: Ren Vaz MD ([facility]) POTENTIAL DISCHARGE NEEDS:: Follow-up appointment with primary care provider and resumption of caregiver supports through [facility]. PATIENT/FAMILY EDUCATION NEEDS:: Review discharge instructions and limitations with care givers, including [employer]. ANTICIPATED BARRIERS TO DISCHARGE:: None identified at this time. TRANSPORTATION:: Via private vehicle by [facility] caregivers. PLAN:: Miguel Angel will return home with his caregivers once medically cleared by . He will follow up with his PCP and plan of care as prescribed. His caregivers will transport him home via private vehicle when ready.
--- NOTE | 2019-08-08 12:45 | PHARADMIT ---
Admission Pharmacy Clinical Review irretractable vomiting, suspected gastric outlet obstruction Code Status Full Code Current Weight 96.162 kg Renally Cleared and Narrow Therapeutic Index Meds crcl ~93ml/min QTc Value / Action Taken NA BP Control, Fever 101/56 FEVER @0600 38.3 Electrolytes reviewed k 3.4, mag 1.7 boluses of each ordered DVT Prophylaxis no Opiate Usage / Scheduled Bowel Regimen Ordered no/no Plt/SCr for Heparin / Enoxaparin 226/0.94 INR for Warfarin na H/H stable, WBC/Bands 11.3/33.3 wbc 3.71 Antibiotic appropriateness na Cultures and Sensitivities na Surgical ABX d/c within 24 hr na DM control / Insulin Dosing na Heart Failure (Check EF%) (NADEEM's, B-Block, Diuretics) na IV to PO Switch Home Meds Reviewed Home Meds Not Ordered desmopressin 0.15 tab PO QNOON using subq omeprazole 1 cap PO DAILY pantoprazole IV testosterone [AndroGel] 3 applic TOPICAL QAM trazodone 4 tab PO QPM aspirin [Aspir-81] 1 tab PO DAILY atorvastatin 40 mg PO DAILY cholecalciferol (vitamin D3) [Vitamin D3] 1,000 mg PO DAILY desmopressin 0.1 mg PO QAM ferrous gluconate 324 mg PO DAILY levothyroxine 225 mcg PO DAILY ok to be without for up to 1 wk per quetiapine [Seroquel] 200 mg PO PRN sennosides-docusate sodium [DOK Plus] 1 tab PO QHS PRN calcium carbonate [Tums] 200 mg PO DAILY metoprolol succinate 75 mg PO DAILY using IV baclofen 20 mg PO TID magnesium 250 mg PO BID melatonin 9 mg PO HS hydrocortisone 10 mg PO QNOON using IV hydrocortisone 25 mg PO BID #5 tab hydrocortisone [Cortef] 20 mg PO QAM #0 tab ipratropium-albuterol 3 ml IH QID PRN #90 ml ondansetron 4 mg PO Q6H PRN #10 tab Comments
--- NOTE | 2019-08-08 13:50 | W.SURGCON ---
Date of service: 08/08/19 Time of Service: 13:51 Assessment and Plan Assessment and plan (1) Gastric outlet obstruction: Status: Acute Assessment and plan: unclear if this is from a foreign body or if this is from ulcer dx He will need GETA and the usual risks from this including aspiration. We will need to insert an OGT and suction fluid out of the abdomen prior to perfomring the EGD- there is a signif amount of fluid and debris in the stomach on xray. We will plan on doing an EGD. Risks: bleeding/infection/perforation/aspiration/GETA. If he has a true gastric outlet from ulcer dx- he will need a bypass procedure. Sister gives consent today. 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 He had a post Op bleed and a CVA. His sister is POA. He has been vomiting and not been his nl self. He has a hx of eating foreign objects. He has a bloated abdom and what appears to be a mechanical obstruction on Xray. This is unchanged since 08/04. We cannot pass an NGT b/c he has had a portion of the cribiform plate removed to perform the orgininal surgery. I did review the films and there is nothing metallic in his stomach. His vital are stable- no fevers. He does not appear to have peritonitis. He has been vomiting. But not vomiting blood. He has eating string and other inanimate objects and has had to have these removed in the past. He also has a hx of GERD and ulcers in the past. He is on a PPI. Consults Consult date: 08/08/19 Requesting physician: Ila Rosenthal Review of Systems Unobtainable due to mental condition [facility] Medical History Constipation (Chronic) Cortical blindness (Chronic) CVA (cerebral vascular accident) (Resolved) Diabetes insipidus (Chronic) GERD (gastroesophageal reflux disease) (Chronic) History of brain tumor (Resolved) Hx of fracture of pelvis (Resolved) Insomnia (Chronic) Leg cramps (Chronic) 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Chronic) Seizures (Chronic) TBI (traumatic brain injury) (Chronic) Urinary retention (Resolved) Surgical History H/O brain surgery (Inactive) Social History Smoking/Tobacco Use Status: Never Alcohol Intake: current Alcohol type: other Drug use: Never Substance use type: does not use Do you feel safe at home: Yes Do you feel safe in your relationship?: Yes Exam Const Other: pt is a & O to self only. he won't cooperate w/ exam. HENMT Head: normal to inspection Mouth: lip normal Teeth and gingiva: caries, poor dentition and other (very poor oral care) Other: pt won't open eyes are mouth Eyes Other: pt won't open his eyes. He is blind sclera clear. Chest Chest: normal inspection of the chest and No rash Resp Effort & Inspection: normal respiratory effort and able to speak in complete sentences Auscultation: clear to auscultation bilaterally Cardio Jugular venous pressure: no JVD Rate: regular rate Rhythm: regular rhythm GI Inspection: normal to inspection, distended and striae Palpation: soft, no hernias, nontender and No ascites Auscultation: normal bowel sounds Skin General skin exam: no rashes or lesions noted Extrem General: full ROM, normal capillary refill, no clubbing, cyanosis or edema and other (moving all independentaly) Psych Other: can't cooperate to do neuro exam. has TBI Results Last Vital Signs Temp 36.8 C 08/08/19 12:00 Pulse 77 08/08/19 13:43 Resp 16 08/08/19 12:00 BP 107/65 08/08/19 13:43 Pulse Ox 93 L 08/08/19 12:00 Labs Result diagrams: 08/08/19 06:40 08/08/19 06:40 Labs: Laboratory Results - last 24 hr 08/07/19 08/07/19 08/07/19 21:25 21:25 21:25 WBC 3.26 L RBC 4.93 Hgb 13.1 L Hct 37.5 L MCV 76.1 L MCH 26.6 L MCHC 34.9 RDW 15.1 H Plt Count 227 MPV 9.4 Immature Gran % 0.6 Neutrophils % 59.3 Lymphocytes % 27.3 Monocytes % 10.4 Eosinophils % 2.1 Basophils % 0.3 Absolute Neutrophils 1.93 Absolute Lymphocytes 0.89 L Absolute Monocytes 0.34 Absolute Eosinophils 0.07 Absolute Basophils 0.01 Sodium 137 Potassium 3.6 Chloride 99 Carbon Dioxide 24.9 Anion Gap 13.1 H BUN 15 Creatinine 0.97 Estimated GFR/1.73 m2 >= 60.00 Glucose 91 Calcium 8.6 Magnesium 1.7 L Total Bilirubin 0.2 AST 32 ALT 76 H Alkaline Phosphatase 97 Total Protein 7.5 Albumin 4.0 Lipase 121 Free T4 Acetaminophen < 2 08/08/19 08/08/19 08/08/19 06:40 06:40 06:40 WBC 3.71 L RBC 4.32 L Hgb 11.3 L Hct 33.3 L MCV 77.1 L MCH 26.2 L MCHC 33.9 RDW 15.1 H Plt Count 226 MPV 9.6 Immature Gran % Neutrophils % Lymphocytes % Monocytes % Eosinophils % Basophils % Absolute Neutrophils Absolute Lymphocytes Absolute Monocytes Absolute Eosinophils Absolute Basophils Sodium 137 Potassium 3.4 L Chloride 103 Carbon Dioxide 22.6 Anion Gap 11.4 H BUN 17 Creatinine 0.94 Estimated GFR/1.73 m2 >= 60.00 Glucose 106 Calcium 7.8 L Magnesium Total Bilirubin AST ALT Alkaline Phosphatase Total Protein Albumin Lipase Free T4 0.95 Acetaminophen
[2019-08-08] MEDS: Lactated Ringers 1,000 ML 30 ML IV (14:10)
[2019-08-08 14:37] LABS: Bilirubin Negative (Negative); Blood Negative (Negative); Clarity Clear (Clear); Glucose Negative (Negative); Ketones Negative (Negative); Leukocyte Esterase Negative (Negative); Nitrite Negative (Negative); Specific Gravity 1.025 (1.005-1.025); Urobilinogen 0.2 EU/dL (Up TO 0.2); pH 5.5 (5-8)
--- NOTE | 2019-08-08 14:49 | STOM_PTH ---
PATIENT: Miguel Angel Burgos LOC: U#:[id number] AGE/SX: 29/M ROOM: 212 RE08/08/[address]: Ila Rosenthal : 1990 BED: A DIS: 08/12/2019 SPEC #: [id number] RECD: 08/09/19 12:36 STATUS: SOUNoe REQ #: [id number] ROYAL: 08/08/19 14:[address]: Pedro Whitney DEPT: Surgical Specimen RECD BY: Georgia Blanchard ENTERED: 08/09/19 12:38 SP TYPE: STOMACH OTHR DR: Ren Vaz Laura M InPatient Dan Wyand Tissues: 1 - STOMACH BIOPSY 2 - ESOPHAGUS BIOPSY Procedures: SPECIAL STAIN 2 GROSS AND MICRO LEVEL 4 Comments: [id number]
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
[2019-08-08] MEDS: Sucralfate 1 GM TAB PO ×2 (16:30→20:54)
[2019-08-08] MEDS: Magnesium Gluconate 500 MG TAB 250 MG PO (20:54)
[2019-08-08] MEDS: Melatonin 3 MG TAB 9 MG PO (20:54)
[2019-08-08] MEDS: Zonisamide 100 MG CAP 200 MG PO (20:54)
[2019-08-08] MEDS: traZODone 50 MG TAB 200 MG PO (20:54)
[2019-08-08] MEDS: Baclofen 10 MG TAB 20 MG PO (20:55)
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
[2019-08-09 00:22] VITALS: BP 121/75; PULSE 77; RESP 18; TEMP 36.8; O2SAT 98
[2019-08-09] MEDS: DEXTROSE 5%-LACTATED RINGERS 1,000 ML 100 ML IV (00:46)
[2019-08-09] MEDS: Hydrocortisone SOD SUC. 100 MG VIAL IVP ×2 (01:59→09:22)
[2019-08-09 02:03] VITALS: PULSE 53
[2019-08-09 04:29] VITALS: BP 118/75; PULSE 52; RESP 16; TEMP 36; O2SAT 97
--- NOTE | 2019-08-09 04:32 | NUR.NOTE ---
Patient bit off a part of name bang and was eating it, was resistive at first to take it out, but eventually did so. Name tag was cut off and placed on computer for patient safety.
[2019-08-09] MEDS: Levothyroxine 75 MCG TAB 225 MCG PO (05:48)
[2019-08-09 07:03] LABS: Abs Immature Grans 0.03 k/cumm (0.0-0.09); Absolute Basophil Count 0.01 k/cumm (0.0-0.2); Absolute Eosinophil Count 0.01 k/cumm (0.0-0.7); Absolute Lymphocyte Count 0.95 k/cumm (1.2-3.4); Absolute Monocyte Count 0.32 k/cumm (0.11-0.7); Absolute Neutrophil Count 4.06 k/cumm (1.2-6.7); Basophils % 0.2; Eosinophils % 0.2; HCT 32.9 % (40.0-50.0); HGB 11.1 g/dL (13.5-17.5); Immature Grans % 0.6 %; Lymphocytes % 17.7; Mean Corp. HGB Concentration 33.7 g/dL (32.0-36.0); Mean Corpuscular Hemoglobin 26.1 pg (27.0-33.0); Mean Corpuscular Volume 77.2 fL (80-95); Mean Platelet Volume 9.4 fL (8.0-11.0); Monocytes % 5.9; Neutrophils % 75.4; Platelet Count 216 x1000/uL (130-400); RBC 4.26 m/cumm (4.50-6.00); RBC Distribution Width 15.1 % (11.8-14.1); White Blood Cell Count 5.38 k/cumm (4.4-10.8)
[2019-08-09 07:16] LABS: Anion Gap 10.8 mmol/L (3-11); BUN 10 mg/dL (7-18); C-Reactive Protein 6.11 mg/dL (0.0-0.3); CO2 23.2 mmol/L (21.0-32.0); CREATININE 0.75 mg/dL (0.70-1.30); Calcium 7.7 mg/dL (8.5-10.1); Chloride 101 mmol/L (98-107); Glucose 102 mg/dL (74-106); Magnesium 1.6 mg/dL (1.8-2.4); Potassium 3.8 mmol/L (3.5-5.1); Sodium 135 mmol/L (136-145)
[2019-08-09 07:45] VITALS: BP 124/69; PULSE 54; RESP 22; TEMP 36.5; O2SAT 96
[2019-08-09] MEDS: Pantoprazole 40 MG VIAL IVP ×2 (08:10→19:40)
[2019-08-09] MEDS: Normal Saline Flush 10 ML SYR IVP ×3 (08:10→19:39)
[2019-08-09] MEDS: Magnesium Gluconate 500 MG TAB 250 MG PO ×2 (08:11→19:38)
[2019-08-09] MEDS: Cholecalciferol (Vitamin D3) 1,000 UNIT TAB 1000 UNITS PO (08:11)
[2019-08-09] MEDS: Baclofen 10 MG TAB 20 MG PO ×3 (08:12→19:38)
[2019-08-09] MEDS: Calcium Carbonate *TUMS* 500 MG CHEW PO (08:12)
[2019-08-09] MEDS: Sucralfate 1 GM TAB PO ×4 (08:12→21:14)
[2019-08-09] MEDS: MAGNESIUM SULFATE 2 GM/50 ML BAG IVPB (09:22)
[2019-08-09] MEDS: Desmopressin 0.2 MG TAB 0.1 MG PO (09:22)
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
--- NOTE | 2019-08-09 12:05 | NUR.NOTE ---
Nursing Note: TELEM WITH SOME ? ARTIFACT. PT IN ROOM FLAILING WITH HIS SHEETS. CAREGIVER STATED THAT THE TELEM LEADS HAD COME OFF AND SHE HAD RECONNECTED THEM. LEADS IN PLACE CORRECTLY AND VS ARE [id number], 100% 36.6, 18, 117/73
--- NOTE | 2019-08-09 12:57 | W.PM.PROGNOT ---
Date of Service Date of service: 08/09/19 Time of Service: 12:57 Assessment and Plan Assessment and plan (1) Chemical gastritis: Status: Acute Assessment and plan: Seen on EGD 08/08/2019. Cause unclear, but based on the pattern, an ingestion of an encapsulated corrosive substance is suspected. (e.g. tide pod or mechanical technician detergent or possibly a battery). This was discussed with mechanical development engineer/keycase assembler. Dr Saucedo feels it is likely ok to advance his diet to full liquid today. Continue PPI, carafate. (2) Panhypopituitarism: Status: Chronic Assessment and plan: Start to taper hydrocortisone. Synthroid resumed. (3) Diabetes insipidus: Status: Chronic Assessment and plan: Desmopressin converted back to PO. Re-institute 3L/day fluid restriction. Monitor sodium. (4) GERD (gastroesophageal reflux disease): Status: Chronic Assessment and plan: On IV PPI. (5) Seizures: Status: Chronic Assessment and plan: Continue zonegran (6) On beta gui at home: Status: Acute Assessment and plan: Cause unclear. On telemetry overnight, HR in 40's were noted. HR during the day now is in the 70's. The long acting beta gui will be split into 2 doses of 25 mg of PO lopressor with holding parameters. I think the risks of having a telemetry box in patient's room right now outweigh the benefits - d/c tele. Monitor HR by vitals. (7) Discharge planning issues: Status: Acute Assessment and plan: Full code Likely discharge home in 48 hours (8) DVT prophylaxis: Status: Acute Assessment and plan: Chemical DVT ppx is contraindicated with the degree of chemical gastritis that the patient has. The patient is unlikely to tolerate TEDs/SCDs. My understanding is that an APS resport has been filed. Subjective Subjective Interval history since last seen: No vomiting overnight. Tolerating clears. Denies pain. ROS is limited due to patient's baseline mental status. He is at his baseline, per caretakers. Exam Narrative Exam Narrative: General: Obese male, in bed, awake, interactive, but responses not always sensical, playing with his sheets and telemetry box HEENT: EOMI, MMM Heart: RRR, no m/r/g Lungs: CTAB anteriorly Abdomen: soft, nontender, nondistended Extremities: no e/c/c BLE's - does get cramps in his calves while I am in the room with him Objective Objective Clinical Data: Abnormal lab results 08/09/19 08/09/19 Range/Units 06:40 06:40 RBC 4.26 L (4.50-6.00) m/cumm Hgb 11.1 L (13.5-17.5) g/dL Hct 32.9 L (40.0-50.0) % MCV 77.2 L (80-95) fL MCH 26.1 L (27.0-33.0) pg RDW 15.1 H (11.8-14.1) % Absolute Lymphocytes 0.95 L (1.2-3.4) k/cumm Sodium 135 L (136-145) mmol/L Calcium 7.7 L (8.5-10.1) mg/dL Magnesium 1.6 L (1.8-2.4) mg/dL C-Reactive Protein 6.11 H (0.0-0.3) mg/dL Vital Signs Temperature 36.5 C 08/09/19 07:45 Temperature Source Tympanic 08/09/19 07:45 Pulse 54 L 08/09/19 07:45 Pulse Rhythm Regular 08/09/19 09:10 Respiratory Rate 22 08/09/19 07:45 Respiratory Effort Non-Labored 08/09/19 00:17 Respiratory Depth Normal 08/09/19 00:17 Respiratory Pattern Normal 08/09/19 00:17 Blood Pressure 124/69 08/09/19 07:45 Pulse Oximetry 96 08/09/19 07:45 Respiratory End-tidal CO2 29 08/08/19 15:20 Oxygen Delivery Method Room Air 08/09/19 07:45 Oxygen Flow Rate 0 08/09/19 07:45 Pain Level 0 08/09/19 08:10 Intake & Output 08/08/19 08/09/19 08/09/19 23:59 11:59 23:59 Intake Total 2576.667 / 2676.667 3803.333 / 3803.333 Output Total 1100 / 1100 3100 / 3100 Balance 1476.667 / 1576.667 703.333 / 703.333 Intake: IV 1916.667 / 2016.667 2193.333 / 2193.333 Oral 660 / 660 1610 / 1610 Output: Urine 1100 / 1100 3100 / 3100 Other: Urine Color Yellow Pale Yellow Urine Appearance Clear Clear Urine Odor None Strong Comment bladder scanned after void. urine unmeasured. patient tolerated procedure Emesis Description None Voiding Methods Toilet Toilet Laboratory Results WBC 5.38 k/cumm (4.4-10.8) D 08/09/19 06:40 RBC 4.26 m/cumm (4.50-6.00) L 08/09/19 06:40 Hgb 11.1 g/dL (13.5-17.5) L 08/09/19 06:40 Hct 32.9 % (40.0-50.0) L 08/09/19 06:40 MCV 77.2 fL (80-95) L 08/09/19 06:40 MCH 26.1 pg (27.0-33.0) L 08/09/19 06:40 MCHC 33.7 g/dL (32.0-36.0) 08/09/19 06:40 RDW 15.1 % (11.8-14.1) H 08/09/19 06:40 Plt Count 216 x1000/uL (130-400) 08/09/19 06:40 MPV 9.4 fL (8.0-11.0) 08/09/19 06:40 Immature Gran % 0.6 % 08/09/19 06:40 Neutrophils % 75.4 08/09/19 06:40 Lymphocytes % 17.7 08/09/19 06:40 Monocytes % 5.9 08/09/19 06:40 Eosinophils % 0.2 08/09/19 06:40 Basophils % 0.2 08/09/19 06:40 Absolute Neutrophils 4.06 k/cumm (1.2-6.7) 08/09/19 06:40 Absolute Lymphocytes 0.95 k/cumm (1.2-3.4) L 08/09/19 06:40 Absolute Monocytes 0.32 k/cumm (0.11-0.7) 08/09/19 06:40 Absolute Eosinophils 0.01 k/cumm (0.0-0.7) 08/09/19 06:40 Absolute Basophils 0.01 k/cumm (0.0-0.2) 08/09/19 06:40 Sodium 135 mmol/L (136-145) L 08/09/19 06:40 Potassium 3.8 mmol/L (3.5-5.1) 08/09/19 06:40 Chloride 101 mmol/L (98-107) 08/09/19 06:40 Carbon Dioxide 23.2 mmol/L (21.0-32.0) 08/09/19 06:40 Anion Gap 10.8 mmol/L (3-11) 08/09/19 06:40 BUN 10 mg/dL (7-18) D 08/09/19 06:40 Creatinine 0.75 mg/dL (0.70-1.30) 08/09/19 06:40 Estimated GFR/1.73 m2 >= 60.00 (mL/min/1.73m2) 08/09/19 06:40 Glucose 102 mg/dL (74-106) 08/09/19 06:40 Calcium 7.7 mg/dL (8.5-10.1) L 08/09/19 06:40 Magnesium 1.6 mg/dL (1.8-2.4) L 08/09/19 06:40 Total Bilirubin 0.2 mg/dL (0.2-1.0) 08/07/19 21:25 AST 32 U/L (15-37) 08/07/19 21:25 ALT 76 U/L (16-63) H 08/07/19 21:25 Alkaline Phosphatase 97 U/L (46-116) 08/07/19 21:25 C-Reactive Protein 6.11 mg/dL (0.0-0.3) H 08/09/19 06:40 Total Protein 7.5 g/dL (6.4-8.2) 08/07/19 21:25 Albumin 4.0 g/dL (3.4-5.0) 08/07/19 21:25 Lipase 121 U/L (73-393) 08/07/19 21:25 Free T4 0.95 ng/dL (0.76-1.46) 08/08/19 06:40 Urine Color Yellow (Yellow) 08/08/19 12:25 Urine Clarity Clear (Clear) 08/08/19 12:25 Urine pH 5.5 (5-8) 08/08/19 12:25 Ur Specific [place] 1.025 (1.005-1.025) 08/08/19 12:25 Urine Protein Negative mg/dL (Negative) 08/08/19 12:25 Urine Ketones Negative mg/dL (Negative) 08/08/19 12:25 Urine Blood Negative (Negative) 08/08/19 12:25 Urine Nitrite Negative (Negative) 08/08/19 12:25 Urine Bilirubin Negative (Negative) 08/08/19 12:25 Urine Urobilinogen 0.2 EU/dL (Up TO 0.2) 08/08/19 12:25 Ur Leukocyte Esterase Negative (Negative) 08/08/19 12:25 Urine Glucose Negative mg/dL (Negative) 08/08/19 12:25 Acetaminophen < 2 ug/mL (10-30) 08/07/19 21:25
--- NOTE | 2019-08-09 13:05 | IN_ITS ---
Date of service: 08/09/19 Time of Service: 13:05 PT Notes Visit Reasons: IRRETRACTABLE VOMITING, SUSPECTED GASTRIC OUTLET O Physical Therapy Inpatient Initial Evaluation Date: 08/09/2019 Referring Doctor: Ila Rosenthal M.D. PT Orders: PT CONSULT: Limited Ability Precautions: Fall. Standard. Activity as tolerated. Non-verbal and blind. Patient Profile/Admitting Diagnosis: Pt is a 29-year-old male with a history of a CVA, diabetes insipidus, and traumatic brain injury who presented to the ER on 08/07/2019 with nausea, vomiting, diarrhea. He was admitted to the hospital for vomiting and gastric outlet obstruction. PMHX: Medical History Constipation (Chronic) Cortical blindness (Chronic) CVA (cerebral vascular accident) (Resolved) Diabetes insipidus (Chronic) GERD (gastroesophageal reflux disease) (Chronic) History of brain tumor (Resolved) Hx of fracture of pelvis (Resolved) Insomnia (Chronic) Leg cramps (Chronic) 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Chronic) Seizures (Chronic) TBI (traumatic brain injury) (Chronic) Urinary retention (Resolved) Social History/Home Situation: Pt lives at home with 24/7 care. Per his casework specialist he has two caregivers with him. She notes there are four steps to enter with bilateral railings and a ramp which the pt uses when in his wheelchair. Equipment Owned/DME: wheelchair Subjective: Per the pt?s rn care transition the pt is at his baseline and moving very well. States that when he walks around the house he always has someone to follow him with a wheelchair so that when he is tired he can sit down. She states that he is capable of walking on his own in the house with assistance to notify him of what is ahead. She notes that he often gets cramps in his left leg. Objective: General Observation: mepilex dressing over incision. Thromboembolic pumps on bilateral LEs. Mental Status: Pt non-verbal, but is able to answer some single step questions. Pain: 0/10 Vital Signs: NT ROM: Right Upper Extremity: Shoulder Flexion WFL. Shoulder abduction WFL. Elbow flexion WFL. Wrist flexion WFL. Opening and closing of hand WFL. Left Upper Extremity: Shoulder Flexion WFL. Shoulder abduction WFL. Elbow flexion WFL. Wrist flexion WFL. Opening and closing of hand WFL. Right Lower Extremity: Hip flexion WFL. Hip abduction WFL. Knee flexion WFL. Ankle dorsiflexion WFL. Ankle plantarflexion WFL. Left Lower Extremity: Hip flexion WFL. Hip abduction WFL. Knee flexion WFL. Ankle dorsiflexion WFL. Ankle plantarflexion WFL. Strength: Right Upper Extremity: Shoulder flexors 5/5. Shoulder abductors 5/5. Elbow flexors 5/5. Elbow extensors 5/5. Camera Repairer strong. Left Upper Extremity: Shoulder flexors 5/5. Shoulder abductors 5/5. Elbow flexors 5/5. Elbow extensors 5/5. Camera Repairer strong. Right Lower Extremity: Hip flexors 5/5. Hip abductors 5/5. Knee flexors 5/5. Knee extensors 5/5. Ankle dorsiflexors 5/5. Ankle plantarflexors 5/5. Left Lower Extremity: Hip flexors 5/5. Hip abductors 5/5. Knee flexors 5/5. Knee extensors 3-/5. Ankle dorsiflexors 5/5. Ankle plantarflexors 5/5. Sensation: Intact as to pain and pressure on bilateral lower extremities. Bed Mobility/Transfers: Rolling Min A Supine to sit Min A Sit to supine Min A Sit to stand CGA x 2, no upper extremity assistance Stand to sit CGA x 2 with very little control with lowering and no upper extremity assistance Bed to chair CGA x 2 Chair to bed CGA x 2 Gait: Pt was able to ambulate 75 feet, full weightbearing, without the use of an assistive device, however, does require handhold assist x2 by PT and PT student. Wheelchair follow provided by casework specialist. Limited total knee extension with excess plantarflexion on the left lower extremity during mid-stance observes. He required a sitting rest break at 75 feet and transported back to his room via wheelchair. Balance: Static Sitting: Good Dynamic Sitting: Good Static Standing: Poor Dynamic Standing: Poor Special Tests: Mobility Limitations Standardized Measure [facility] 6 clicks Basic Mobility Inpatient Short Form: Raw Score: 15 CMS Score: 58% Informed Consent/Education: Patient instructed in purpose of PT consult and plan of care. Assessment: Pt is a 29-year-old male with a history of a CVA, diabetes insipidus, and tarumatic brain injury who presented to the ER on 08/07/2019 with nausea, vomiting, diarrhea. He was admitted to the hospital for vomiting and gastric outlet obstruction. He reports to physical therapy with impairment level findings and functional limitations as listed below. The pt?s casework specialist reports that he is at baseline and always has someone with him for assistance and a wheelchair follow with mobility and ambulation. He does not require skilled physical therapy at this time. Patient presents with clinical signs and symptoms consistent with current/admitting diagnoses that have resulted to mobility limitations, gait instability, generalized weakness, and impairment of motor control as demonstrated by the following impairment level findings: 1. Impaired sitting/standing balance 2. Impaired activity tolerance 3. Limitation of joint range of motion of the L knee 4. Impaired vision Impairments are contributing to the following functional limitations: 1. Dependent bed mobility skills 2. Increased dependence with transfers 3. Inability to safely ambulate without assistive device and physical assistance 4. Increase completion time for mobility ADL performance 5. Increased fall risk 6. Inability to negotiate steps alone safely Patient is assessed as a 80090 moderate complexity based on the following: History: Pt is a 29-year-old male with a history of a CVA, diabetes insipidus, and brain tumor with resection, that presented to the ER on 08/07/2019 with naus ea, vomiting, diarrhea. He was admitted to the hospital for vomiting and gastric outlet obstruction. Pt presents with impairment level findings and functional limitations as listed above, however, casework specialist reports that pt is at baseline. Examination: Demonstrable impairment in strength, balance, and range of motion with underlying impairments and functional limitations as documented above Presentation: Evolving Decision Makin moderate complexity Goals: N/A. Physical therapy evaluation only. DISCHARGE RECOMMENDATIONS: Discharge to home with 24/7 care when medically cleared. TREATMENT CODE/TIME: 40039 x 25 minutes beginning at 13:05 P.M. Thank you very much for this referral. Mary Jane Ac, SPT Doctor of Physical Therapy Student [facility] Supervision provided by Pamela Phillips PT, DPT, CLT [facility] [place], [place]
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
[2019-08-09 15:23] VITALS: BP 121/64; PULSE 72; RESP 18; TEMP 36.7; O2SAT 98
--- NOTE | 2019-08-09 16:39 | PDOC.CMPRO ---
- If Service Date Differs Date of service: 08/09/19 Time of Service: 16:39 Care Management Progress Note S/O: Miguel Angel was sitting up in bed when CM met with him. His caregiver from [facility] was in the room with him. She reported that he has 2-3 caregivers with eyes on him at all times, which is necessary because he tries to put things in his mouth and eat them constantly. She stated that his sister, Bettina, is very present in his care, although she is not a daily caregiver for him. She does, however, care for him in her home on major holidays. His caregiver reported that he has had trouble sleeping the past 2-3 weeks and he has had severe leg cramping which he has been given Tylenol for. When asked, his caregiver stated that he has no access to any chemicals/cleaning agents, and that he has eyes on him every waking hour. She reported that he does attempt to chew on/eat his 'briefs'. CM will continue to follow. A: Miguel Angel is a 29 year old male admitted to [facility] on 08/08/19 with irretractable vomiting, gastric outlet obstruction. P: Anticipate Miguel Angel will return home ([facility] managed home with 24/7 caregivers) once medically cleared by . He will follow up with his PCP and plan of care as prescribed. His caregivers will transport him home via private vehicle when ready. CM will continue to follow.
[2019-08-09] MEDS: Acetaminophen 325 MG TAB 650 MG PO (16:43)
[2019-08-09] MEDS: Hydrocortisone SOD SUC. 100 MG VIAL 50 MG IVP (17:11)
[2019-08-09] MEDS: QUEtiapine 100 MG TAB 200 MG PO (18:32)
--- NOTE | 2019-08-09 19:29 | PGE_ITS ---
Date of Service Date of service: 08/09/19 Time of Service: 12:30 Assessment and Plan Assessment and plan (1) Chemical gastritis: Status: Acute Assessment and plan: The caregivers cannot think of anything he may have ingested that could irritate his stomach like that. He does not have access to batteries or cleaning products. He does take a daily aspirin and occasional NSAIDS. This combined with his hydrocortisone could cause ulceration. Will advance diet to fulls, continue to monitor for fever/WBC/pain Subjective Subjective Interval history since last seen: Patient is seen along with his caregivers. They report he seems in his normal mood. He cannot report pain accurately Exam Narrative Exam Narrative: Alert, active Abdomen soft, nondistended. No obvious tenderness Objective Objective Clinical Data: Abnormal lab results 08/09/19 08/09/19 Range/Units 06:40 06:40 RBC 4.26 L (4.50-6.00) m/cumm Hgb 11.1 L (13.5-17.5) g/dL Hct 32.9 L (40.0-50.0) % MCV 77.2 L (80-95) fL MCH 26.1 L (27.0-33.0) pg RDW 15.1 H (11.8-14.1) % Absolute Lymphocytes 0.95 L (1.2-3.4) k/cumm Sodium 135 L (136-145) mmol/L Calcium 7.7 L (8.5-10.1) mg/dL Magnesium 1.6 L (1.8-2.4) mg/dL C-Reactive Protein 6.11 H (0.0-0.3) mg/dL Vital Signs Temperature 98.1 F 08/09/19 15:23 Temperature Source Tympanic 08/09/19 15:23 Pulse 72 08/09/19 15:23 Pulse Rhythm Regular 08/09/19 15:24 Respiratory Rate 18 08/09/19 15:23 Respiratory Effort Non-Labored 08/09/19 15:24 Respiratory Depth Normal 08/09/19 15:24 Respiratory Pattern Normal 08/09/19 15:24 Blood Pressure 121/64 08/09/19 15:23 Pulse Oximetry 98 08/09/19 15:23 Respiratory End-tidal CO2 29 08/08/19 15:20 Oxygen Delivery Method Room Air 08/09/19 15:23 Oxygen Flow Rate 0 08/09/19 15:23 Pain Level 5 08/09/19 16:43 Intake & Output 08/08/19 08/09/19 08/09/19 23:59 11:59 23:59 Intake Total 2576.667 / 2676.667 3803.333 / 4843.333 1040 / 4843.333 Output Total 1100 / 1100 3100 / 3450 350 / 3450 Balance 1476.667 / 1576.667 703.333 / 1393.333 690 / 1393.333 Intake: IV 1916.667 / 2016.667 2193.333 / 2493.333 300 / 2493.333 Oral 660 / 660 1610 / 2350 740 / 2350 Output: Urine 1100 / 1100 3100 / 3450 350 / 3450 Other: Urine Color Yellow Pale Yellow Yellow Urine Appearance Clear Clear Clear Urine Odor None Strong Normal Comment bladder scanned after void. urine unmeasured. patient tolerated procedure Emesis Description None Voiding Methods Toilet Toilet Toilet Incontinent Laboratory Results WBC 5.38 k/cumm (4.4-10.8) D 08/09/19 06:40 RBC 4.26 m/cumm (4.50-6.00) L 08/09/19 06:40 Hgb 11.1 g/dL (13.5-17.5) L 08/09/19 06:40 Hct 32.9 % (40.0-50.0) L 08/09/19 06:40 MCV 77.2 fL (80-95) L 08/09/19 06:40 MCH 26.1 pg (27.0-33.0) L 08/09/19 06:40 MCHC 33.7 g/dL (32.0-36.0) 08/09/19 06:40 RDW 15.1 % (11.8-14.1) H 08/09/19 06:40 Plt Count 216 x1000/uL (130-400) 08/09/19 06:40 MPV 9.4 fL (8.0-11.0) 08/09/19 06:40 Immature Gran % 0.6 % 08/09/19 06:40 Neutrophils % 75.4 08/09/19 06:40 Lymphocytes % 17.7 08/09/19 06:40 Monocytes % 5.9 08/09/19 06:40 Eosinophils % 0.2 08/09/19 06:40 Basophils % 0.2 08/09/19 06:40 Absolute Neutrophils 4.06 k/cumm (1.2-6.7) 08/09/19 06:40 Absolute Lymphocytes 0.95 k/cumm (1.2-3.4) L 08/09/19 06:40 Absolute Monocytes 0.32 k/cumm (0.11-0.7) 08/09/19 06:40 Absolute Eosinophils 0.01 k/cumm (0.0-0.7) 08/09/19 06:40 Absolute Basophils 0.01 k/cumm (0.0-0.2) 08/09/19 06:40 Sodium 135 mmol/L (136-145) L 08/09/19 06:40 Potassium 3.8 mmol/L (3.5-5.1) 08/09/19 06:40 Chloride 101 mmol/L (98-107) 08/09/19 06:40 Carbon Dioxide 23.2 mmol/L (21.0-32.0) 08/09/19 06:40 Anion Gap 10.8 mmol/L (3-11) 08/09/19 06:40 BUN 10 mg/dL (7-18) D 08/09/19 06:40 Creatinine 0.75 mg/dL (0.70-1.30) 08/09/19 06:40 Estimated GFR/1.73 m2 >= 60.00 (mL/min/1.73m2) 08/09/19 06:40 Glucose 102 mg/dL (74-106) 08/09/19 06:40 Calcium 7.7 mg/dL (8.5-10.1) L 08/09/19 06:40 Magnesium 1.6 mg/dL (1.8-2.4) L 08/09/19 06:40 Total Bilirubin 0.2 mg/dL (0.2-1.0) 08/07/19 21:25 AST 32 U/L (15-37) 08/07/19 21:25 ALT 76 U/L (16-63) H 08/07/19 21:25 Alkaline Phosphatase 97 U/L (46-116) 08/07/19 21:25 C-Reactive Protein 6.11 mg/dL (0.0-0.3) H 08/09/19 06:40 Total Protein 7.5 g/dL (6.4-8.2) 08/07/19 21:25 Albumin 4.0 g/dL (3.4-5.0) 08/07/19 21:25 Lipase 121 U/L (73-393) 08/07/19 21:25 Free T4 0.95 ng/dL (0.76-1.46) 08/08/19 06:40 Urine Color Yellow (Yellow) 08/08/19 12:25 Urine Clarity Clear (Clear) 08/08/19 12:25 Urine pH 5.5 (5-8) 08/08/19 12:25 Ur Specific [place] 1.025 (1.005-1.025) 08/08/19 12:25 Urine Protein Negative mg/dL (Negative) 08/08/19 12:25 Urine Ketones Negative mg/dL (Negative) 08/08/19 12:25 Urine Blood Negative (Negative) 08/08/19 12:25 Urine Nitrite Negative (Negative) 08/08/19 12:25 Urine Bilirubin Negative (Negative) 08/08/19 12:25 Urine Urobilinogen 0.2 EU/dL (Up TO 0.2) 08/08/19 12:25 Ur Leukocyte Esterase Negative (Negative) 08/08/19 12:25 Urine Glucose Negative mg/dL (Negative) 08/08/19 12:25 Acetaminophen < 2 ug/mL (10-30) 08/07/19 21:25
[2019-08-09] MEDS: Metoprolol 25 MG TAB PO (19:37)
[2019-08-09] MEDS: Zonisamide 100 MG CAP 200 MG PO (19:37)
[2019-08-09] MEDS: Atorvastatin 40 MG TAB PO (19:38)
[2019-08-09] MEDS: traZODone 50 MG TAB 200 MG PO (19:39)
[2019-08-09] MEDS: Melatonin 3 MG TAB 9 MG PO (21:14)
[2019-08-10] MEDS: Normal Saline Flush 10 ML SYR IVP ×3 (02:47→11:04)
[2019-08-10] MEDS: Hydrocortisone SOD SUC. 100 MG VIAL 50 MG IVP (02:48)
[2019-08-10 04:25] VITALS: BP 137/88; PULSE 55; RESP 18; TEMP 36.2; O2SAT 98
[2019-08-10] MEDS: Levothyroxine 75 MCG TAB 225 MCG PO (06:50)
[2019-08-10 07:12] LABS: Abs Immature Grans 0.11 k/cumm (0.0-0.09); Absolute Basophil Count 0.01 k/cumm (0.0-0.2); Absolute Eosinophil Count 0.09 k/cumm (0.0-0.7); Absolute Lymphocyte Count 1.42 k/cumm (1.2-3.4); Absolute Monocyte Count 0.42 k/cumm (0.11-0.7); Basophils % 0.2; Eosinophils % 1.4; HCT 33.5 % (40.0-50.0); HGB 11.3 g/dL (13.5-17.5); Immature Grans % 1.7 %; Lymphocytes % 21.7; Mean Corp. HGB Concentration 33.7 g/dL (32.0-36.0); Mean Corpuscular Volume 77.2 fL (80-95); Mean Platelet Volume 9.4 fL (8.0-11.0); Monocytes % 6.4; Neutrophils % 68.6; Platelet Count 244 x1000/uL (130-400); RBC 4.34 m/cumm (4.50-6.00); RBC Distribution Width 15.2 % (11.8-14.1); White Blood Cell Count 6.55 k/cumm (4.4-10.8)
[2019-08-10 07:21] LABS: BUN 9 mg/dL (7-18); CREATININE 0.83 mg/dL (0.70-1.30); Calcium 8.2 mg/dL (8.5-10.1); Chloride 106 mmol/L (98-107); Glucose 86 mg/dL (74-106); Magnesium 2.1 mg/dL (1.8-2.4); Potassium 3.6 mmol/L (3.5-5.1); Sodium 140 mmol/L (136-145)
[2019-08-10 07:52] VITALS: BP 123/70; PULSE 43; RESP 14; TEMP 36.8; O2SAT 100
--- NOTE | 2019-08-10 07:57 | W.PM.PROGNOT ---
Date of Service Date of service: 08/10/19 Time of Service: 07:57 Assessment and Plan Assessment and plan (1) Chemical gastritis: Status: Acute Assessment and plan: Patient tolerating full liquid diet overnight. Denies abdominal pain. Urinating without difficulty. No BM. Subjective Subjective Interval history since last seen: I am feeling better. Denies any abdominal pain. Tolerating full liquid diet. Exam Const General: cooperative, healthy appearing and comfortable Orientation: alert and awake Resp Effort & Inspection: normal respiratory effort, no audible wheezes and no cough GI Inspection: normal to inspection Palpation: soft, no guarding and nontender Objective Objective Clinical Data: Abnormal lab results 08/10/19 08/10/19 Range/Units 06:45 06:45 RBC 4.34 L (4.50-6.00) m/cumm Hgb 11.3 L (13.5-17.5) g/dL Hct 33.5 L (40.0-50.0) % MCV 77.2 L (80-95) fL MCH 26.0 L (27.0-33.0) pg RDW 15.2 H (11.8-14.1) % Calcium 8.2 L (8.5-10.1) mg/dL C-Reactive Protein 2.20 H (0.0-0.3) mg/dL Vital Signs Temperature 36.8 C 08/10/19 07:52 Temperature Source Tympanic 08/10/19 07:52 Pulse 43 L 08/10/19 07:52 Pulse Rhythm Regular 08/09/19 23:45 Respiratory Rate 14 08/10/19 07:52 Respiratory Effort 08/09/19 23:45 Respiratory Depth Normal 08/09/19 23:45 Respiratory Pattern Normal 08/09/19 23:45 Blood Pressure 123/70 08/10/19 07:52 Pulse Oximetry 100 08/10/19 07:52 Respiratory End-tidal CO2 29 08/08/19 15:20 Oxygen Delivery Method Room Air 08/10/19 07:52 Oxygen Flow Rate 0 08/10/19 07:52 Pain Level 0 08/10/19 07:52 Intake & Output 08/09/19 08/10/19 08/10/19 18:59 06:59 18:59 Intake Total 3810 / 3810 75 / 75 Output Total 2250 / 2250 Balance 1560 / 1560 75 / 75 Intake: IV 1600 / 1600 Oral 2210 / 2210 75 / 75 Output: Urine 2250 / 2250 Other: Urine Color Yellow Yellow Yellow Urine Appearance Clear Clear Clear Urine Odor Normal Normal Comment BESIDES VOID DOCUMENTED AT 0515 PT VOIDED 6 OTHER TIMES 2 OF THESE TIMES HE WAS VERY INCONTINENT X2 AND HAD TO HAVE A COMPLETE BED CHANGE. Voiding Methods Toilet Toilet Toilet Incontinent Incontinent Laboratory Results WBC 6.55 k/cumm (4.4-10.8) 08/10/19 06:45 RBC 4.34 m/cumm (4.50-6.00) L 08/10/19 06:45 Hgb 11.3 g/dL (13.5-17.5) L 08/10/19 06:45 Hct 33.5 % (40.0-50.0) L 08/10/19 06:45 MCV 77.2 fL (80-95) L 08/10/19 06:45 MCH 26.0 pg (27.0-33.0) L 08/10/19 06:45 MCHC 33.7 g/dL (32.0-36.0) 08/10/19 06:45 RDW 15.2 % (11.8-14.1) H 08/10/19 06:45 Plt Count 244 x1000/uL (130-400) 08/10/19 06:45 MPV 9.4 fL (8.0-11.0) 08/10/19 06:45 Immature Gran % 1.7 % 08/10/19 06:45 Neutrophils % 68.6 08/10/19 06:45 Lymphocytes % 21.7 08/10/19 06:45 Monocytes % 6.4 08/10/19 06:45 Eosinophils % 1.4 08/10/19 06:45 Basophils % 0.2 08/10/19 06:45 Absolute Neutrophils 4.50 k/cumm (1.2-6.7) 08/10/19 06:45 Absolute Lymphocytes 1.42 k/cumm (1.2-3.4) 08/10/19 06:45 Absolute Monocytes 0.42 k/cumm (0.11-0.7) 08/10/19 06:45 Absolute Eosinophils 0.09 k/cumm (0.0-0.7) 08/10/19 06:45 Absolute Basophils 0.01 k/cumm (0.0-0.2) 08/10/19 06:45 Sodium 140 mmol/L (136-145) 08/10/19 06:45 Potassium 3.6 mmol/L (3.5-5.1) 08/10/19 06:45 Chloride 106 mmol/L (98-107) 08/10/19 06:45 Carbon Dioxide 25.0 mmol/L (21.0-32.0) 08/10/19 06:45 Anion Gap 9.0 mmol/L (3-11) 08/10/19 06:45 BUN 9 mg/dL (7-18) 08/10/19 06:45 Creatinine 0.83 mg/dL (0.70-1.30) 08/10/19 06:45 Estimated GFR/1.73 m2 >= 60.00 (mL/min/1.73m2) 08/10/19 06:45 Glucose 86 mg/dL (74-106) 08/10/19 06:45 Calcium 8.2 mg/dL (8.5-10.1) L 08/10/19 06:45 Magnesium 2.1 mg/dL (1.8-2.4) 08/10/19 06:45 Total Bilirubin 0.2 mg/dL (0.2-1.0) 08/07/19 21:25 AST 32 U/L (15-37) 08/07/19 21:25 ALT 76 U/L (16-63) H 08/07/19 21:25 Alkaline Phosphatase 97 U/L (46-116) 08/07/19 21:25 C-Reactive Protein 2.20 mg/dL (0.0-0.3) H 08/10/19 06:45 Total Protein 7.5 g/dL (6.4-8.2) 08/07/19 21:25 Albumin 4.0 g/dL (3.4-5.0) 08/07/19 21:25 Lipase 121 U/L (73-393) 08/07/19 21:25 Free T4 0.95 ng/dL (0.76-1.46) 08/08/19 06:40 Urine Color Yellow (Yellow) 08/08/19 12:25 Urine Clarity Clear (Clear) 08/08/19 12:25 Urine pH 5.5 (5-8) 08/08/19 12:25 Ur Specific [place] 1.025 (1.005-1.025) 08/08/19 12:25 Urine Protein Negative mg/dL (Negative) 08/08/19 12:25 Urine Ketones Negative mg/dL (Negative) 08/08/19 12:25 Urine Blood Negative (Negative) 08/08/19 12:25 Urine Nitrite Negative (Negative) 08/08/19 12:25 Urine Bilirubin Negative (Negative) 08/08/19 12:25 Urine Urobilinogen 0.2 EU/dL (Up TO 0.2) 08/08/19 12:25 Ur Leukocyte Esterase Negative (Negative) 08/08/19 12:25 Urine Glucose Negative mg/dL (Negative) 08/08/19 12:25 Acetaminophen < 2 ug/mL (10-30) 08/07/19 21:25
[2019-08-10] MEDS: Baclofen 10 MG TAB 20 MG PO ×3 (08:16→19:46)
[2019-08-10] MEDS: Cholecalciferol (Vitamin D3) 1,000 UNIT TAB 1000 UNITS PO (08:16)
[2019-08-10] MEDS: Sucralfate 1 GM TAB PO ×4 (08:16→21:45)
[2019-08-10] MEDS: Calcium Carbonate *TUMS* 500 MG CHEW PO (08:17)
[2019-08-10] MEDS: Magnesium Gluconate 500 MG TAB 250 MG PO ×2 (08:19→19:45)
[2019-08-10] MEDS: Pantoprazole 40 MG VIAL IVP (08:22)
[2019-08-10] MEDS: Acetaminophen 325 MG TAB 650 MG PO (10:24)
[2019-08-10] MEDS: Tamsulosin 0.4 MG CAPCR PO (11:01)
--- NOTE | 2019-08-10 12:43 | W.UROLOGYCON ---
Assessment and Plan Assessment and plan (1) Urinary retention with incomplete bladder emptying: Status: Acute Assessment and plan: His retention seems to be rather situational in that it occurs during his acute illnesses then seems to improve as his overall status improves. With the intermittent nature of his symptoms, he has been managed with supportive care alone. This seems quite appropriate in that it is very difficult to tell if and when these symptoms may become problematic for him. With all of his other medical issues, it may not be in the patient's best interest to put him on a long-term medication such as an alpha-gui (especially if the voiding issues are short-lived). With his mental status, he would not be a candidate for any type of physical therapy. Behavioral modification with timed voiding and a bowel regimen would be our recommended treatment. With no evidence of hydronephrosis or recurrent UTIs, there is no indication to start routine intermittent catheterization. History of Present Illness Narrative: Chief complaint: Incomplete bladder emptying This is a 29-year-old gentleman who has a history of a craniopharyngioma. He has had the lesion resected and apparently had some postop complications as well. As a result, he has a number of neurologic and endocrine issues. He is currently hospitalized for GI concerns. I have been asked to see him for elevated bladder volumes on bladder scan. The patient himself denies issues with voiding. He does not require catheterization when he is home. His issues seem to only occur intermittently when he is hospitalized. He was hospitalized for over 6 months in [facility] after he suffered an acetabular fracture. I was able to review his inpatient records as well as his clinic progress notes. In reviewing his previous records from [facility] and from our facility, urinary retention was first listed on his problem list in the summer 2017. Prior to that, he was simply listed as having incontinence. It appears that his episodes of incomplete bladder emptying/retention have been intermittent and are associated with his acute illnesses. These episodes have been managed with intermittent catheterization until they improve on their own. I do not see that he has been treated medically with any specific urologic medications. I do see that the patient would occasionally need sedation to have his catheter placed, but there is never been an indication that any type of resistance has been met in passing a catheter. 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 He has been on DDAVP for his diabetes insipidus. He has been managed with timed voiding by having him attempt to void every 2-3 hours even at night. It was mentioned that he would have some wetness on his bed pads when he would wake up but he was not having significant breakthrough polyuria during the evening. Since his admission here, he has had bladder scans showing up to 550 cc in the bladder. At other times, he has as low as 33 cc in the bladder. He has had normal urine cultures since his admission. He has not required an indwelling catheter. Review of Systems Unobtainable due to mental status [facility] Medical History (Updated 08/10/19 @ 12:54 by Isidoro Gastelum MD) Acetabular fracture (Acute) Chemical gastritis (Acute) Constipation (Chronic) Cortical blindness (Chronic) Craniopharyngioma (Acute) CVA (cerebral vascular accident) (Resolved) Diabetes insipidus (Chronic) GERD (gastroesophageal reflux disease) (Chronic) History of brain tumor (Resolved) Hx of fracture of pelvis (Resolved) Insomnia (Chronic) Leg cramps (Chronic) 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Chronic) Seizures (Chronic) TBI (traumatic brain injury) (Chronic) Urinary retention (Resolved) Surgical History H/O brain surgery (Inactive) Social History Smoking/Tobacco Use Status: Never Alcohol Intake: current Alcohol type: other Drug use: Never Substance use type: does not use Do you feel safe at home: Yes Do you feel safe in your relationship?: Yes Exam Narrative Exam Narrative: He does not appear septic or toxic His vital signs are documented elsewhere His abdomen is soft and nontender He is awake and alert I have been able to review the CT scans from his current visit. One scan was done on 08/04/2019 and the other was dated 08/07/2019. Neither of these scans showed an overly distended bladder or hydronephrosis. The only scan I found to review at [facility] was dated January 2018. This scan was taken after he sustained his acetabular fracture. He had a pelvic hematoma from the fracture and a Tsang catheter was in place at that time (so I am not able to assess bladder distention). The kidneys were not included on this scan, but I do not see any dilated ureters. His renal function is normal I do not find any positive urine cultures in his records. Results Last Vital Signs Temp 36.8 C 08/10/19 07:52 Pulse 43 L 08/10/19 07:52 Resp 14 08/10/19 07:52 BP 123/70 08/10/19 07:52 Pulse Ox 100 08/10/19 07:52 Labs Result diagrams: 08/10/19 06:45 08/10/19 06:45 Labs: Laboratory Results - last 24 hr 08/10/19 08/10/19 06:45 06:45 WBC 6.55 RBC 4.34 L Hgb 11.3 L Hct 33.5 L MCV 77.2 L MCH 26.0 L MCHC 33.7 RDW 15.2 H Plt Count 244 MPV 9.4 Immature Gran % 1.7 Neutrophils % 68.6 Lymphocytes % 21.7 Monocytes % 6.4 Eosinophils % 1.4 Basophils % 0.2 Absolute Neutrophils 4.50 Absolute Lymphocytes 1.42 Absolute Monocytes 0.42 Absolute Eosinophils 0.09 Absolute Basophils 0.01 Sodium 140 Potassium 3.6 Chloride 106 Carbon Dioxide 25.0 Anion Gap 9.0 BUN 9 Creatinine 0.83 Estimated GFR/1.73 m2 >= 60.00 Glucose 86 Calcium 8.2 L Magnesium 2.1 C-Reactive Protein 2.20 H
--- NOTE | 2019-08-10 14:59 | PGE_ITS ---
Date of Service Date of service: 08/10/19 Time of Service: 14:59 Assessment and Plan Assessment and plan (1) Chemical gastritis: Status: Acute Assessment and plan: Seen on EGD 08/08/2019. Cause unclear, but based on the pattern, an ingestion of an encapsulated corrosive substance is suspected. (e.g. tide pod or take down sorter detergent or possibly a battery). This was discussed with steam presser/leather case finisher, who state that the patient does not normally have access to these. Advance diet to soft. Continue PPI, carafate. (2) Panhypopituitarism: Status: Chronic Assessment and plan: Continue hydrocortisone taper - transition to PO. Synthroid resumed. (3) Diabetes insipidus: Status: Chronic Assessment and plan: Continue desmopressin and fluid restriction. Sodium normal. (4) GERD (gastroesophageal reflux disease): Status: Chronic Assessment and plan: On IV PPI. (5) Seizures: Status: Chronic Assessment and plan: Continue zonegran (6) On beta gui at home: Status: Acute Assessment and plan: Cause unclear. The patient does not seem to be tolerating the low dose of lopressor with HR in the 40's on latest vital signs. Will d/c lopressor The patient does not do well with a telemetry box - continue to monitor HR by vitals. (7) Urinary retention with incomplete bladder emptying: Status: Acute Assessment and plan: [place] to be situational by urology. Will make sure the patient is on bowel meds. Will not prescribe flomax on discharge. (8) Discharge planning issues: Status: Acute Assessment and plan: Full code Likely discharge home tomorrow (9) DVT prophylaxis: Status: Acute Assessment and plan: Chemical DVT ppx is contraindicated with the degree of chemical gastritis that the patient has. The patient is unlikely to tolerate TEDs/SCDs. Subjective Subjective Interval history since last seen: Miguel Angel is restless, but not in pain, per his steam presser. He denies pain to me. When he gets pain, it is in his calves. No BM today. Urinates frequently. Seen by urology - urinary retention is felt to be situational. 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 Bowel regimen recommended. Exam Narrative Exam Narrative: General: Obese male, in bed, awake, restless/anxious HEENT: EOMI, MMM Heart: RRR, no m/r/g Lungs: CTAB Abdomen: soft, nontender, nondistended Extremities: no edema BLE's Objective Objective Clinical Data: Abnormal lab results 08/10/19 08/10/19 Range/Units 06:45 06:45 RBC 4.34 L (4.50-6.00) m/cumm Hgb 11.3 L (13.5-17.5) g/dL Hct 33.5 L (40.0-50.0) % MCV 77.2 L (80-95) fL MCH 26.0 L (27.0-33.0) pg RDW 15.2 H (11.8-14.1) % Calcium 8.2 L (8.5-10.1) mg/dL C-Reactive Protein 2.20 H (0.0-0.3) mg/dL Vital Signs Temperature 36.8 C 08/10/19 07:52 Temperature Source Tympanic 08/10/19 07:52 Pulse 43 L 08/10/19 07:52 Pulse Rhythm Regular 08/10/19 10:45 Respiratory Rate 14 08/10/19 07:52 Respiratory Effort 08/10/19 10:45 Respiratory Depth Normal 08/10/19 10:45 Respiratory Pattern Normal 08/10/19 10:45 Blood Pressure 123/70 08/10/19 07:52 Pulse Oximetry 100 08/10/19 07:52 Respiratory End-tidal CO2 29 08/08/19 15:20 Oxygen Delivery Method Room Air 08/10/19 07:52 Oxygen Flow Rate 0 08/10/19 07:52 Pain Level 10 08/10/19 10:24 Intake & Output 08/09/19 08/10/19 08/10/19 23:59 11:59 23:59 Intake Total 1220 / 5023.333 535 / 775 240 / 775 Output Total 350 / 3450 1700 / 1700 Balance 870 / 1573.333 -1165 / -925 240 / -925 Intake: IV 300 / 2493.333 300 / 300 Oral 920 / 2530 235 / 475 240 / 475 Output: Urine 350 / 3450 1700 / 1700 Other: Urine Color Yellow Pale Yellow Urine Appearance Clear Clear Urine Odor Normal Normal Comment BESIDES VOID DOCUMENTED AT 0515 PT VOIDED 6 OTHER TIMES 2 OF THESE TIMES HE WAS VERY INCONTINENT X2 AND HAD TO HAVE A COMPLETE BED CHANGE. Voiding Methods Toilet Toilet Incontinent Laboratory Results WBC 6.55 k/cumm (4.4-10.8) 08/10/19 06:45 RBC 4.34 m/cumm (4.50-6.00) L 08/10/19 06:45 Hgb 11.3 g/dL (13.5-17.5) L 08/10/19 06:45 Hct 33.5 % (40.0-50.0) L 08/10/19 06:45 MCV 77.2 fL (80-95) L 08/10/19 06:45 MCH 26.0 pg (27.0-33.0) L 08/10/19 06:45 MCHC 33.7 g/dL (32.0-36.0) 08/10/19 06:45 RDW 15.2 % (11.8-14.1) H 08/10/19 06:45 Plt Count 244 x1000/uL (130-400) 08/10/19 06:45 MPV 9.4 fL (8.0-11.0) 08/10/19 06:45 Immature Gran % 1.7 % 08/10/19 06:45 Neutrophils % 68.6 08/10/19 06:45 Lymphocytes % 21.7 08/10/19 06:45 Monocytes % 6.4 08/10/19 06:45 Eosinophils % 1.4 08/10/19 06:45 Basophils % 0.2 08/10/19 06:45 Absolute Neutrophils 4.50 k/cumm (1.2-6.7) 08/10/19 06:45 Absolute Lymphocytes 1.42 k/cumm (1.2-3.4) 08/10/19 06:45 Absolute Monocytes 0.42 k/cumm (0.11-0.7) 08/10/19 06:45 Absolute Eosinophils 0.09 k/cumm (0.0-0.7) 08/10/19 06:45 Absolute Basophils 0.01 k/cumm (0.0-0.2) 08/10/19 06:45 Sodium 140 mmol/L (136-145) 08/10/19 06:45 Potassium 3.6 mmol/L (3.5-5.1) 08/10/19 06:45 Chloride 106 mmol/L (98-107) 08/10/19 06:45 Carbon Dioxide 25.0 mmol/L (21.0-32.0) 08/10/19 06:45 Anion Gap 9.0 mmol/L (3-11) 08/10/19 06:45 BUN 9 mg/dL (7-18) 08/10/19 06:45 Creatinine 0.83 mg/dL (0.70-1.30) 08/10/19 06:45 Estimated GFR/1.73 m2 >= 60.00 (mL/min/1.73m2) 08/10/19 06:45 Glucose 86 mg/dL (74-106) 08/10/19 06:45 Calcium 8.2 mg/dL (8.5-10.1) L 08/10/19 06:45 Magnesium 2.1 mg/dL (1.8-2.4) 08/10/19 06:45 Total Bilirubin 0.2 mg/dL (0.2-1.0) 08/07/19 21:25 AST 32 U/L (15-37) 08/07/19 21:25 ALT 76 U/L (16-63) H 08/07/19 21:25 Alkaline Phosphatase 97 U/L (46-116) 08/07/19 21:25 C-Reactive Protein 2.20 mg/dL (0.0-0.3) H 08/10/19 06:45 Total Protein 7.5 g/dL (6.4-8.2) 08/07/19 21:25 Albumin 4.0 g/dL (3.4-5.0) 08/07/19 21:25 Lipase 121 U/L (73-393) 08/07/19 21:25 Free T4 0.95 ng/dL (0.76-1.46) 08/08/19 06:40 Urine Color Yellow (Yellow) 08/08/19 12:25 Urine Clarity Clear (Clear) 08/08/19 12:25 Urine pH 5.5 (5-8) 08/08/19 12:25 Ur Specific [place] 1.025 (1.005-1.025) 08/08/19 12:25 Urine Protein Negative mg/dL (Negative) 08/08/19 12:25 Urine Ketones Negative mg/dL (Negative) 08/08/19 12:25 Urine Blood Negative (Negative) 08/08/19 12:25 Urine Nitrite Negative (Negative) 08/08/19 12:25 Urine Bilirubin Negative (Negative) 08/08/19 12:25 Urine Urobilinogen 0.2 EU/dL (Up TO 0.2) 08/08/19 12:25 Ur Leukocyte Esterase Negative (Negative) 08/08/19 12:25 Urine Glucose Negative mg/dL (Negative) 08/08/19 12:25 Acetaminophen < 2 ug/mL (10-30) 08/07/19 21:25
--- NOTE | 2019-08-10 15:24 | CMPROGNOTE_ITS ---
- If Service Date Differs Date of service: 08/10/19 Time of Service: 15:24 Care Management Progress Note S/O: Miguel Angel was lying in bed when CM met with him. A caregiver from [facility], Jason, was in the room with him. Jason reported that Miguel Angel appears very bored today, which is making him agitated. CM asked if he needed anything to keep him busy. Jason reported that this environment is different from his normal, which adds to Miguel Angel's stress. During the conversation, Miguel Angel threw his pillow and sheet across the room. CM asked if Miguel Angel enjoys listening to music. Jason stated that he does, and that he would ask the relief person who would be arriving soon to bring Miguel Angel's Theodora from home. CM will continue to follow. A: Miguel Angel is a 29 year old male admitted to [facility] on 08/08/19 with irretractable vomiting, gastric outlet obstruction. P: Anticipate Miguel Angel will return home ([facility] managed home with / caregivers) once medically cleared by MD. He will follow up with his PCP and plan of care as prescribed. His caregivers will transport him home via private vehicle when ready. CM will continue to follow.
[2019-08-10 15:40] VITALS: BP 112/64; PULSE 51; RESP 16; TEMP 36.6; O2SAT 98
[2019-08-10] MEDS: Hydrocortisone 10 MG TAB 30 MG PO (16:25)
[2019-08-10] MEDS: Senna TAB 1 TAB PO ×2 (16:26→21:45)
[2019-08-10] MEDS: Docusate Sodium 100 MG CAP PO ×2 (16:26→21:45)
[2019-08-10] MEDS: QUEtiapine 100 MG TAB 200 MG PO (17:45)
[2019-08-10] MEDS: LORazepam 0.5 MG TAB PO (17:45)
[2019-08-10] MEDS: Zonisamide 100 MG CAP 200 MG PO (19:45)
[2019-08-10] MEDS: traZODone 50 MG TAB 200 MG PO (19:45)
[2019-08-10] MEDS: Atorvastatin 40 MG TAB PO (19:46)
[2019-08-10] MEDS: Melatonin 3 MG TAB 9 MG PO (21:44)
[2019-08-10] MEDS: Pantoprazole 40 MG TABCR PO (23:44)
[2019-08-11 00:03] VITALS: BP 118/74; PULSE 48; RESP 20; TEMP 36; O2SAT 98
[2019-08-11] MEDS: LORazepam 0.5 MG TAB PO ×2 (05:56→21:31)
[2019-08-11] MEDS: Acetaminophen 325 MG TAB 650 MG PO (05:56)
[2019-08-11] MEDS: Levothyroxine 75 MCG TAB 225 MCG PO (05:56)
[2019-08-11 07:34] LABS: HCT 37.8 % (40.0-50.0); HGB 12.6 g/dL (13.5-17.5); Mean Corp. HGB Concentration 33.3 g/dL (32.0-36.0); Mean Corpuscular Hemoglobin 26.1 pg (27.0-33.0); Mean Corpuscular Volume 78.4 fL (80-95); Mean Platelet Volume 8.9 fL (8.0-11.0); Platelet Count 312 x1000/uL (130-400); RBC 4.82 m/cumm (4.50-6.00); White Blood Cell Count 4.71 k/cumm (4.4-10.8)
[2019-08-11 07:40] VITALS: BP 115/76; PULSE 72; RESP 18; TEMP 36.4; O2SAT 96
[2019-08-11 07:57] LABS: Anion Gap 7.5 mmol/L (3-11); BUN 14 mg/dL (7-18); CO2 29.5 mmol/L (21.0-32.0); CREATININE 1.05 mg/dL (0.70-1.30); Calcium 8.7 mg/dL (8.5-10.1); Chloride 113 mmol/L (98-107); Glucose 78 mg/dL (74-106); Magnesium 2.3 mg/dL (1.8-2.4); Potassium 3.2 mmol/L (3.5-5.1); Sodium 150 mmol/L (136-145)
--- NOTE | 2019-08-11 08:03 | W.PM.PROGNOT ---
Date of Service Date of service: 08/11/19 Time of Service: 08:03 Subjective Subjective Interval history since last seen: Arrived with patient sitting at the edge of bed. Denies any abdominal pain. Tolerating regular diet. Objective Objective Clinical Data: Abnormal lab results 08/11/19 08/11/19 Range/Units 07:00 07:00 Hgb 12.6 L (13.5-17.5) g/dL Hct 37.8 L (40.0-50.0) % MCV 78.4 L (80-95) fL MCH 26.1 L (27.0-33.0) pg RDW 16.0 H (11.8-14.1) % Sodium 150 H (136-145) mmol/L Potassium 3.2 L (3.5-5.1) mmol/L Chloride 113 H (98-107) mmol/L Vital Signs Temperature 36.0 C L 08/11/19 00:03 Temperature Source Skin 08/11/19 00:03 Pulse 48 L 08/11/19 00:03 Pulse Rhythm Regular 08/10/19 23:50 Respiratory Rate 20 08/11/19 00:03 Respiratory Effort 08/10/19 23:50 Respiratory Depth Normal 08/10/19 23:50 Respiratory Pattern Normal 08/10/19 23:50 Blood Pressure 118/74 08/11/19 00:03 Pulse Oximetry 98 08/11/19 00:03 Respiratory End-tidal CO2 29 08/08/19 15:20 Oxygen Delivery Method Room Air 08/11/19 00:03 Oxygen Flow Rate 0 08/11/19 00:03 Pain Level 0 08/11/19 00:03 Comment 08/11/19 00:03 Intake & Output 08/10/19 08/11/19 08/11/19 18:59 06:59 18:59 Intake Total 1015 / 1265 250 / 1265 60 / 60 Output Total 1800 / 5350 3550 / 5350 250 / 250 Balance -785 / -4085 -3300 / -4085 -190 / -190 Intake: IV 300 / 300 Oral 715 / 965 250 / 965 60 / 60 Output: Urine 1800 / 5350 3550 / 5350 250 / 250 Post Void Residual 0 / 0 Other: Urine Color Pale Pale Yellow Yellow Yellow Urine Appearance Clear Clear Clear Urine Odor None None Comment BESIDES VOID DOCUMENTED AT 0515 PT VOIDED 6 OTHER TIMES 2 OF THESE TIMES HE WAS VERY INCONTINENT X2 AND HAD TO HAVE A COMPLETE BED CHANGE. also incontinent small amt Voiding Methods Toilet Toilet Toilet Incontinent Laboratory Results WBC 4.71 k/cumm (4.4-10.8) 08/11/19 07:00 RBC 4.82 m/cumm (4.50-6.00) 08/11/19 07:00 Hgb 12.6 g/dL (13.5-17.5) L 08/11/19 07:00 Hct 37.8 % (40.0-50.0) L 08/11/19 07:00 MCV 78.4 fL (80-95) L 08/11/19 07:00 MCH 26.1 pg (27.0-33.0) L 08/11/19 07:00 MCHC 33.3 g/dL (32.0-36.0) 08/11/19 07:00 RDW 16.0 % (11.8-14.1) H 08/11/19 07:00 Plt Count 312 x1000/uL (130-400) 08/11/19 07:00 MPV 8.9 fL (8.0-11.0) 08/11/19 07:00 Immature Gran % 1.7 % 08/10/19 06:45 Neutrophils % 68.6 08/10/19 06:45 Lymphocytes % 21.7 08/10/19 06:45 Monocytes % 6.4 08/10/19 06:45 Eosinophils % 1.4 08/10/19 06:45 Basophils % 0.2 08/10/19 06:45 Absolute Neutrophils 4.50 k/cumm (1.2-6.7) 08/10/19 06:45 Absolute Lymphocytes 1.42 k/cumm (1.2-3.4) 08/10/19 06:45 Absolute Monocytes 0.42 k/cumm (0.11-0.7) 08/10/19 06:45 Absolute Eosinophils 0.09 k/cumm (0.0-0.7) 08/10/19 06:45 Absolute Basophils 0.01 k/cumm (0.0-0.2) 08/10/19 06:45 Sodium 150 mmol/L (136-145) H 08/11/19 07:00 Potassium 3.2 mmol/L (3.5-5.1) L 08/11/19 07:00 Chloride 113 mmol/L (98-107) H 08/11/19 07:00 Carbon Dioxide 29.5 mmol/L (21.0-32.0) 08/11/19 07:00 Anion Gap 7.5 mmol/L (3-11) 08/11/19 07:00 BUN 14 mg/dL (7-18) 08/11/19 07:00 Creatinine 1.05 mg/dL (0.70-1.30) 08/11/19 07:00 Estimated GFR/1.73 m2 >= 60.00 (mL/min/1.73m2) 08/11/19 07:00 Glucose 78 mg/dL (74-106) 08/11/19 07:00 Calcium 8.7 mg/dL (8.5-10.1) 08/11/19 07:00 Magnesium 2.3 mg/dL (1.8-2.4) 08/11/19 07:00 Total Bilirubin 0.2 mg/dL (0.2-1.0) 08/07/19 21:25 AST 32 U/L (15-37) 08/07/19 21:25 ALT 76 U/L (16-63) H 08/07/19 21:25 Alkaline Phosphatase 97 U/L (46-116) 08/07/19 21:25 C-Reactive Protein 2.20 mg/dL (0.0-0.3) H 08/10/19 06:45 Total Protein 7.5 g/dL (6.4-8.2) 08/07/19 21:25 Albumin 4.0 g/dL (3.4-5.0) 08/07/19 21:25 Lipase 121 U/L (73-393) 08/07/19 21:25 Free T4 0.95 ng/dL (0.76-1.46) 08/08/19 06:40 Urine Color Yellow (Yellow) 08/08/19 12:25 Urine Clarity Clear (Clear) 08/08/19 12:25 Urine pH 5.5 (5-8) 08/08/19 12:25 Ur Specific [place] 1.025 (1.005-1.025) 08/08/19 12:25 Urine Protein Negative mg/dL (Negative) 08/08/19 12:25 Urine Ketones Negative mg/dL (Negative) 08/08/19 12:25 Urine Blood Negative (Negative) 08/08/19 12:25 Urine Nitrite Negative (Negative) 08/08/19 12:25 Urine Bilirubin Negative (Negative) 08/08/19 12:25 Urine Urobilinogen 0.2 EU/dL (Up TO 0.2) 08/08/19 12:25 Ur Leukocyte Esterase Negative (Negative) 08/08/19 12:25 Urine Glucose Negative mg/dL (Negative) 08/08/19 12:25 Stool Campylobacter PCR Cancelled 08/07/19 23:40 Stool Salmonella PCR Cancelled 08/07/19 23:40 Stool Shigella PCR Cancelled 08/07/19 23:40 Acetaminophen < 2 ug/mL (10-30) 08/07/19 21:25 Shiga Toxin (PCR) Cancelled 08/07/19 23:40
[2019-08-11] MEDS: Docusate Sodium 100 MG CAP PO ×2 (08:34→19:47)
[2019-08-11] MEDS: Baclofen 10 MG TAB 20 MG PO ×3 (08:34→19:47)
[2019-08-11] MEDS: Senna TAB 1 TAB PO ×2 (08:34→19:48)
[2019-08-11] MEDS: Sucralfate 1 GM TAB PO ×4 (08:34→21:24)
[2019-08-11] MEDS: Pantoprazole 40 MG TABCR PO ×2 (08:34→19:48)
[2019-08-11] MEDS: Tamsulosin 0.4 MG CAPCR PO (08:35)
[2019-08-11] MEDS: Calcium Carbonate *TUMS* 500 MG CHEW PO (08:35)
[2019-08-11] MEDS: Cholecalciferol (Vitamin D3) 1,000 UNIT TAB 1000 UNITS PO (08:35)
[2019-08-11] MEDS: Hydrocortisone 10 MG TAB 40 MG PO (08:35)
[2019-08-11] MEDS: Magnesium Gluconate 500 MG TAB 250 MG PO ×2 (08:35→19:47)
[2019-08-11] MEDS: Hydrocortisone 10 MG TAB 20 MG PO (12:09)
[2019-08-11] MEDS: Bisacodyl 5 MG TABEC PO (14:08)
--- NOTE | 2019-08-11 14:33 | PGE_ITS ---
Date of Service Date of service: 08/11/19 Time of Service: 14:33 Assessment and Plan Assessment and plan (1) Chemical gastritis: Status: Acute Assessment and plan: Seen on EGD 08/08/2019. Cause unclear, but based on the pattern, an ingestion of an encapsulated corrosive substance is suspected. (e.g. tide pod or medical staffing coordinator detergent or possibly a battery). This was discussed with account solutions analyst/behavioral health case manager, who state that the patient does not normally have access to these. tolerating soft diet. Continue PPI, carafate. (2) Panhypopituitarism: Status: Chronic Assessment and plan: Continue hydrocortisone taper - on PO now. Synthroid resumed. (3) Diabetes insipidus: Status: Chronic Assessment and plan: discussed with his paint spray inspector at [facility] who recommends increasing today's desmopressin dose and recheck sodium in am. (4) GERD (gastroesophageal reflux disease): Status: Chronic Assessment and plan: continue PPI (5) Seizures: Status: Chronic Assessment and plan: stable and seizure free, Continue zonegran (6) On beta gui at home: Status: Acute Assessment and plan: Unclear why he is taking and with bradycardia it was discontinued. The patient does not do well with a telemetry box - continue to monitor HR by vitals. (7) Urinary retention with incomplete bladder emptying: Status: Acute Assessment and plan: Seen by urology and felt to be situational. continue bowel management. Will not prescribe flomax on discharge. (8) DVT prophylaxis: Status: Acute Assessment and plan: Chemical DVT ppx is contraindicated with the degree of chemical gastritis that the patient has. The patient is unlikely to tolerate TEDs/SCDs (9) Discharge planning issues: Status: Acute Assessment and plan: discharge home tomorrow if sodium stable. Subjective Subjective Interval history since last seen: reports by nursing that patient with increased urinary output overnight voiding 1000 cc at a time. no fevers and is hemodynamically stable. behaviorally at his baseline. no new active issues, tolerating po. Exam Const General: comfortable, cushingoid, ill appearing chronically and well hydrated Nutritional Appearance: obese Orientation: alert, awake and confused HENSD Head: normal to inspection and atraumatic Mouth: oral mucosae normal Resp Effort & Inspection: normal respiratory effort Cardio Rate: regular rate GI Inspection: obesity Palpation: soft Skin General skin exam: no rashes or lesions noted Neuro General: alert, awake and confused Extrem General: normal to inspection and no pedal edema Objective Objective Clinical Data: Abnormal lab results 08/11/19 08/11/19 Range/Units 07:00 07:00 Hgb 12.6 L (13.5-17.5) g/dL Hct 37.8 L (40.0-50.0) % MCV 78.4 L (80-95) fL MCH 26.1 L (27.0-33.0) pg RDW 16.0 H (11.8-14.1) % Sodium 150 H (136-145) mmol/L Potassium 3.2 L (3.5-5.1) mmol/L Chloride 113 H (98-107) mmol/L Vital Signs Temperature 36.4 C L 08/11/19 07:40 Temperature Source Tympanic 08/11/19 07:40 Pulse 72 08/11/19 07:40 Pulse Rhythm Regular 08/11/19 10:01 Respiratory Rate 18 08/11/19 07:40 Respiratory Effort 08/11/19 10:01 Respiratory Depth Normal 08/11/19 10:01 Respiratory Pattern Normal 08/11/19 10:01 Blood Pressure 115/76 08/11/19 07:40 Pulse Oximetry 96 08/11/19 07:40 Respiratory End-tidal CO2 29 08/08/19 15:20 Oxygen Delivery Method Room Air 08/11/19 07:40 Oxygen Flow Rate 0 08/11/19 07:40 Pain Level 0 08/11/19 07:40 Comment 08/11/19 00:03 Intake & Output 08/10/19 08/11/19 08/11/19 23:59 11:59 23:59 Intake Total 730 / 1265 300 / 540 240 / 540 Output Total 750 / 2450 3150 / 3150 Balance -20 / -1185 -2850 / -2610 240 / -2610 Intake: Oral 730 / 965 300 / 540 240 / 540 Output: Urine 750 / 2450 3150 / 3150 Post Void Residual 0 / 0 Other: Urine Color Yellow Yellow Urine Appearance Clear Clear Urine Odor Normal None Comment HUGELY INCONTINENT OF URINE IN BED. OOB TO TOILET AND VOIDED ON FLOOR LARGE AMTS X 2 FOR 3 TOTAL INCONTINENCES. also incontinent small amt Voiding Methods Incontinent Toilet Laboratory Results WBC 4.71 k/cumm (4.4-10.8) 08/11/19 07:00 RBC 4.82 m/cumm (4.50-6.00) 08/11/19 07:00 Hgb 12.6 g/dL (13.5-17.5) L 08/11/19 07:00 Hct 37.8 % (40.0-50.0) L 08/11/19 07:00 MCV 78.4 fL (80-95) L 08/11/19 07:00 MCH 26.1 pg (27.0-33.0) L 08/11/19 07:00 MCHC 33.3 g/dL (32.0-36.0) 08/11/19 07:00 RDW 16.0 % (11.8-14.1) H 08/11/19 07:00 Plt Count 312 x1000/uL (130-400) 08/11/19 07:00 MPV 8.9 fL (8.0-11.0) 08/11/19 07:00 Immature Gran % 1.7 % 08/10/19 06:45 Neutrophils % 68.6 08/10/19 06:45 Lymphocytes % 21.7 08/10/19 06:45 Monocytes % 6.4 08/10/19 06:45 Eosinophils % 1.4 08/10/19 06:45 Basophils % 0.2 08/10/19 06:45 Absolute Neutrophils 4.50 k/cumm (1.2-6.7) 08/10/19 06:45 Absolute Lymphocytes 1.42 k/cumm (1.2-3.4) 08/10/19 06:45 Absolute Monocytes 0.42 k/cumm (0.11-0.7) 08/10/19 06:45 Absolute Eosinophils 0.09 k/cumm (0.0-0.7) 08/10/19 06:45 Absolute Basophils 0.01 k/cumm (0.0-0.2) 08/10/19 06:45 Sodium 150 mmol/L (136-145) H 08/11/19 07:00 Potassium 3.2 mmol/L (3.5-5.1) L 08/11/19 07:00 Chloride 113 mmol/L (98-107) H 08/11/19 07:00 Carbon Dioxide 29.5 mmol/L (21.0-32.0) 08/11/19 07:00 Anion Gap 7.5 mmol/L (3-11) 08/11/19 07:00 BUN 14 mg/dL (7-18) 08/11/19 07:00 Creatinine 1.05 mg/dL (0.70-1.30) 08/11/19 07:00 Estimated GFR/1.73 m2 >= 60.00 (mL/min/1.73m2) 08/11/19 07:00 Glucose 78 mg/dL (74-106) 08/11/19 07:00 Calcium 8.7 mg/dL (8.5-10.1) 08/11/19 07:00 Magnesium 2.3 mg/dL (1.8-2.4) 08/11/19 07:00 Total Bilirubin 0.2 mg/dL (0.2-1.0) 08/07/19 21:25 AST 32 U/L (15-37) 08/07/19 21:25 ALT 76 U/L (16-63) H 08/07/19 21:25 Alkaline Phosphatase 97 U/L (46-116) 08/07/19 21:25 C-Reactive Protein 2.20 mg/dL (0.0-0.3) H 08/10/19 06:45 Total Protein 7.5 g/dL (6.4-8.2) 08/07/19 21:25 Albumin 4.0 g/dL (3.4-5.0) 08/07/19 21:25 Lipase 121 U/L (73-393) 08/07/19 21:25 Free T4 0.95 ng/dL (0.76-1.46) 08/08/19 06:40 Urine Color Yellow (Yellow) 08/08/19 12:25 Urine Clarity Clear (Clear) 08/08/19 12:25 Urine pH 5.5 (5-8) 08/08/19 12:25 Ur Specific [place] 1.025 (1.005-1.025) 08/08/19 12:25 Urine Protein Negative mg/dL (Negative) 08/08/19 12:25 Urine Ketones Negative mg/dL (Negative) 08/08/19 12:25 Urine Blood Negative (Negative) 08/08/19 12:25 Urine Nitrite Negative (Negative) 08/08/19 12:25 Urine Bilirubin Negative (Negative) 08/08/19 12:25 Urine Urobilinogen 0.2 EU/dL (Up TO 0.2) 08/08/19 12:25 Ur Leukocyte Esterase Negative (Negative) 08/08/19 12:25 Urine Glucose Negative mg/dL (Negative) 08/08/19 12:25 Stool Campylobacter PCR Cancelled 08/07/19 23:40 Stool Salmonella PCR Cancelled 08/07/19 23:40 Stool Shigella PCR Cancelled 08/07/19 23:40 Acetaminophen < 2 ug/mL (10-30) 08/07/19 21:25 Shiga Toxin (PCR) Cancelled 08/07/19 23:40
[2019-08-11 15:49] VITALS: BP 112/74; PULSE 76; RESP 18; TEMP 36.6; O2SAT 96
--- NOTE | 2019-08-11 18:20 | CMPROGNOTE_ITS ---
- If Service Date Differs Date of service: 08/11/19 Time of Service: 18:20 Care Management Progress Note S/O: Miguel Angel was sitting up in bed when CM met with him, with his caregiver present. He was listening to country music, which, per caregiver, he enjoys to listen to. Per provider, his sodium was high today. His diet was advanced to soft foods today. If tolerated, and sodium is stable, he may be able to return home tomorrow, per provider. CM will continue to follow. A: Miguel Angel is a 29 year old male admitted to [facility] on 08/08/19 with irretractable vomiting, gastric outlet obstruction. P: Anticipate Miguel Angel will return home ([facility] managed home with / caregivers) once medically cleared by . He will follow up with his PCP and plan of care as prescribed. His caregivers will transport him home via private vehicle when ready. CM will continue to follow.
[2019-08-11] MEDS: traZODone 50 MG TAB 200 MG PO (19:47)
[2019-08-11] MEDS: Zonisamide 100 MG CAP 200 MG PO (19:47)
[2019-08-11] MEDS: Atorvastatin 40 MG TAB PO (19:48)
[2019-08-11] MEDS: Melatonin 3 MG TAB 9 MG PO (21:24)
[2019-08-11 23:45] VITALS: BP 116/75; PULSE 70; RESP 19; TEMP 36.8; O2SAT 95
[2019-08-12] MEDS: QUEtiapine 100 MG TAB 200 MG PO (01:35)
[2019-08-12 07:16] LABS: Anion Gap 11.3 mmol/L (3-11); BUN 22 mg/dL (7-18); CO2 28.7 mmol/L (21.0-32.0); CREATININE 1.13 mg/dL (0.70-1.30); Calcium 8.7 mg/dL (8.5-10.1); Chloride 112 mmol/L (98-107); Glucose 78 mg/dL (74-106); Potassium 3.3 mmol/L (3.5-5.1); Sodium 152 mmol/L (136-145)
[2019-08-12] MEDS: Levothyroxine 75 MCG TAB 225 MCG PO (08:44)
[2019-08-12] MEDS: Hydrocortisone 10 MG TAB 40 MG PO (08:44)
[2019-08-12] MEDS: Cholecalciferol (Vitamin D3) 1,000 UNIT TAB 1000 UNITS PO (08:45)
[2019-08-12] MEDS: Tamsulosin 0.4 MG CAPCR PO (08:45)
[2019-08-12] MEDS: Sucralfate 1 GM TAB PO ×2 (08:45→11:39)
[2019-08-12] MEDS: Baclofen 10 MG TAB 20 MG PO (08:45)
[2019-08-12] MEDS: Calcium Carbonate *TUMS* 500 MG CHEW PO (08:45)
[2019-08-12] MEDS: Senna TAB 1 TAB PO (08:45)
[2019-08-12] MEDS: Docusate Sodium 100 MG CAP PO (08:46)
[2019-08-12] MEDS: Magnesium Gluconate 500 MG TAB 250 MG PO (08:46)
[2019-08-12] MEDS: Pantoprazole 40 MG TABCR PO (08:46)
[2019-08-12 09:45] VITALS: BP 106/62; PULSE 78; RESP 19; TEMP 36.4; O2SAT 99
[2019-08-12] MEDS: Hydrocortisone 10 MG TAB 20 MG PO (11:39)
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
[2019-08-12 13:02] LABS: Magnesium 2.6 mg/dL (1.8-2.4)
[2019-08-12] MEDS: Potassium Chloride Liquid 20 MEQ PKT 40 MEQ PO (13:05)
--- NOTE | 2019-08-12 13:30 | W.PM.PROGNOT ---
Date of Service Date of service: 08/12/19 Time of Service: 13:30 Assessment and Plan Assessment and plan (1) Urinary retention with incomplete bladder emptying: Status: Acute Assessment and plan: His episodes of retention seem quite intermittent and are usually associated with acute illnesses requiring hospitalization. Overall, these episodes do not seem to occur very often, so I am not sure that a chronic dose of tamsulosin would be helpful for this young man. We certainly cannot ask the patient himself to remind us to start tamsulosin if and when he winds up in the hospital. Perhaps his caregivers would be able to remind us if need be. Subjective Subjective Interval history since last seen: He has not required intermittent catheterization since our last encounter Exam Narrative Exam Narrative: His vital signs are documented elsewhere His abdomen is soft with no bladder distention noted Objective Objective Clinical Data: Abnormal lab results 08/12/19 08/12/19 Range/Units 06:35 06:35 Sodium 152 H (136-145) mmol/L Potassium 3.3 L (3.5-5.1) mmol/L Chloride 112 H (98-107) mmol/L Anion Gap 11.3 H (3-11) mmol/L BUN 22 H D (7-18) mg/dL Magnesium 2.6 H (1.8-2.4) mg/dL Vital Signs Temperature 36.4 C L 08/12/19 09:45 Temperature Source Tympanic 08/12/19 09:45 Pulse 78 08/12/19 09:45 Pulse Rhythm Regular 08/12/19 08:45 Respiratory Rate 19 08/12/19 09:45 Respiratory Effort 08/12/19 08:45 Respiratory Depth Normal 08/12/19 08:45 Respiratory Pattern Normal 08/12/19 08:45 Blood Pressure 106/62 08/12/19 09:45 Pulse Oximetry 99 08/12/19 09:45 Respiratory End-tidal CO2 29 08/08/19 15:20 Oxygen Delivery Method Room Air 08/12/19 09:45 Oxygen Flow Rate 0 08/12/19 09:45 Pain Level 0 08/12/19 09:45 Comment 08/11/19 00:03 Intake & Output 08/11/19 08/12/19 08/12/19 23:59 11:59 23:59 Intake Total 730 / 1030 480 / 480 Balance 730 / -2120 480 / 480 Intake: Oral 730 / 1030 480 / 480 Other: Urine Appearance Clear Clear Comment pt voided in toilet with help of stripper printed circuit boards. pt voided in toilet with help of stripper printed circuit boards. Voiding Methods Toilet Incontinent Laboratory Results WBC 4.71 k/cumm (4.4-10.8) 08/11/19 07:00 RBC 4.82 m/cumm (4.50-6.00) 08/11/19 07:00 Hgb 12.6 g/dL (13.5-17.5) L 08/11/19 07:00 Hct 37.8 % (40.0-50.0) L 08/11/19 07:00 MCV 78.4 fL (80-95) L 08/11/19 07:00 MCH 26.1 pg (27.0-33.0) L 08/11/19 07:00 MCHC 33.3 g/dL (32.0-36.0) 08/11/19 07:00 RDW 16.0 % (11.8-14.1) H 08/11/19 07:00 Plt Count 312 x1000/uL (130-400) 08/11/19 07:00 MPV 8.9 fL (8.0-11.0) 08/11/19 07:00 Immature Gran % 1.7 % 08/10/19 06:45 Neutrophils % 68.6 08/10/19 06:45 Lymphocytes % 21.7 08/10/19 06:45 Monocytes % 6.4 08/10/19 06:45 Eosinophils % 1.4 08/10/19 06:45 Basophils % 0.2 08/10/19 06:45 Absolute Neutrophils 4.50 k/cumm (1.2-6.7) 08/10/19 06:45 Absolute Lymphocytes 1.42 k/cumm (1.2-3.4) 08/10/19 06:45 Absolute Monocytes 0.42 k/cumm (0.11-0.7) 08/10/19 06:45 Absolute Eosinophils 0.09 k/cumm (0.0-0.7) 08/10/19 06:45 Absolute Basophils 0.01 k/cumm (0.0-0.2) 08/10/19 06:45 Sodium 152 mmol/L (136-145) H 08/12/19 06:35 Potassium 3.3 mmol/L (3.5-5.1) L 08/12/19 06:35 Chloride 112 mmol/L (98-107) H 08/12/19 06:35 Carbon Dioxide 28.7 mmol/L (21.0-32.0) 08/12/19 06:35 Anion Gap 11.3 mmol/L (3-11) H 08/12/19 06:35 BUN 22 mg/dL (7-18) H D 08/12/19 06:35 Creatinine 1.13 mg/dL (0.70-1.30) 08/12/19 06:35 Estimated GFR/1.73 m2 >= 60.00 (mL/min/1.73m2) 08/12/19 06:35 Glucose 78 mg/dL (74-106) 08/12/19 06:35 Calcium 8.7 mg/dL (8.5-10.1) 08/12/19 06:35 Magnesium 2.6 mg/dL (1.8-2.4) H 08/12/19 06:35 Total Bilirubin 0.2 mg/dL (0.2-1.0) 08/07/19 21:25 AST 32 U/L (15-37) 08/07/19 21:25 ALT 76 U/L (16-63) H 08/07/19 21:25 Alkaline Phosphatase 97 U/L (46-116) 08/07/19 21:25 C-Reactive Protein 2.20 mg/dL (0.0-0.3) H 08/10/19 06:45 Total Protein 7.5 g/dL (6.4-8.2) 08/07/19 21:25 Albumin 4.0 g/dL (3.4-5.0) 08/07/19 21:25 Lipase 121 U/L (73-393) 08/07/19 21:25 Free T4 0.95 ng/dL (0.76-1.46) 08/08/19 06:40 Urine Color Yellow (Yellow) 08/08/19 12:25 Urine Clarity Clear (Clear) 08/08/19 12:25 Urine pH 5.5 (5-8) 08/08/19 12:25 Ur Specific [place] 1.025 (1.005-1.025) 08/08/19 12:25 Urine Protein Negative mg/dL (Negative) 08/08/19 12:25 Urine Ketones Negative mg/dL (Negative) 08/08/19 12:25 Urine Blood Negative (Negative) 08/08/19 12:25 Urine Nitrite Negative (Negative) 08/08/19 12:25 Urine Bilirubin Negative (Negative) 08/08/19 12:25 Urine Urobilinogen 0.2 EU/dL (Up TO 0.2) 08/08/19 12:25 Ur Leukocyte Esterase Negative (Negative) 08/08/19 12:25 Urine Glucose Negative mg/dL (Negative) 08/08/19 12:25 Stool Campylobacter PCR Cancelled 08/07/19 23:40 Stool Salmonella PCR Cancelled 08/07/19 23:40 Stool Shigella PCR Cancelled 08/07/19 23:40 Acetaminophen < 2 ug/mL (10-30) 08/07/19 21:25 Shiga Toxin (PCR) Cancelled 08/07/19 23:40
--- NOTE | 2019-08-12 14:25 | PDOC.HHF2F ---
Home Health Certification Home Health Certification: 1. Encounter Date and Reason I certify that DANILO MASON was seen by Rosa Donnelly on 08/12/19 and that I had a [id number] encounter with this patient that meets the physician face to face encounter requirements. 2. Clinical Findings Supporting Skilled Need and Homebound Status I certify that home health services are medically necessary, include either intermittent assisted and/or physical/speech therapy, and that this patient is homebound in that absences from the home require considerable and taxing effort and are infrequent or of short duration, or are attributable to the need to receive medical care. [X] (a) Attached documentation from encounter provides clinical findings supporting skilled need and homebound status (including what assistance patient requires to leave the home). The encounter with the patient was in whole, or in part, for the following medical condition, which is the primary reason for home health care: IRRETRACTABLE VOMITING, SUSPECTED GASTRIC OUTLET O Residential: routine nursing care, medication oversight, evaluation of diabetes insipidus and gastrointestinal issues. will need basic metabolic panel drawn on Friday, August 16, 2019. results to endocrinology at [facility], Dr Zaidi for possible medication adjustment Homebound: patient can not safely leave house without assistance d/t unsteady gait, significant cognitive impairment. 3. Certification and Authentication I certify that I composed the above information based on my clinical judgement relating to this patient's medical condition and, if applicable, clinical findings communicated to me by the NPP or inpatient physician who performed the Home Health Referral. All further orders will be obtained through (Community Based Physician - PCP)
--- NOTE | 2019-08-12 15:01 | PDOC.CMDIS ---
- If Service Date Differs Date of service: 08/12/19 Time of Service: 15:01 LACE Index Scoring Tool - Questions: Length of Stay (in days): 4 - 6 Acuity (Admit via E.D.?): Yes E.D. Visits: 6 - Answers: Total Score: 11 Risk of Readmission: High Risk Care Management Discharge Reason for Hospitalization: Irretractable vomiting, gastric outlet obstruction Discharge Plan: Miguel Angel will return home where he has 27/01 caregivers, coordinated by [facility]. He will have new RN for bloodwork. His caregivers will drive him home via private vehicle. He will follow up with his PCP, as recommended. He is agreeable to going home. Patient/Family Education Needs: Review discharge instructions regarding activity, discussion of care including close monitoring, eyes on. Services Needed at Discharge: Home Health Care Services ([facility], RN)
== END 2019-08-12 14:30 | disposition home health service (06) | DRG 392 ==
LOC: ER 08-08 01:02 → MS 08-08 01:13
PROVIDERS: Nurse Practitioner Acute Care; Registered Nurse Emergency; Surgery; Admitting Provider Internal Medicine; Emergency Provider Student in an Organized Health Care Education/Training Program; PCP Family Medicine; Visit Provider Internal Medicine
PROC: 0DC68ZZ Extirpation of Matter from Stomach, Via Natural or Artificial Opening Endoscopic (ICD-10-PCS; CPT 43247; principal; 2019-08-08 13:35)
DX: K29.60 Other gastritis without bleeding (principal); T28.7XXA Corrosion of other parts of alimentary tract, initial encounter; K31.1 Adult hypertrophic pyloric stenosis; E23.2 Diabetes insipidus; T18.2XXA Foreign body in stomach, initial encounter; T65.91XA Toxic effect of unspecified substance, accidental (unintentional), initial encounter; K44.9 Diaphragmatic hernia without obstruction or gangrene; K31.89 Other diseases of stomach and duodenum; K22.8 Other specified diseases of esophagus; E89.3 Postprocedural hypopituitarism; Y83.6 Removal of other organ (partial) (total) as the cause of abnormal reaction of the patient, or of later complication, without mention of misadventure at the time of the procedure; K21.9 Gastro-esophageal reflux disease without esophagitis; G40.909 Epilepsy, unspecified, not intractable, without status epilepticus; R33.8 Other retention of urine; R40.4 Transient alteration of awareness; Z86.73 Personal history of transient ischemic attack (TIA), and cerebral infarction without residual deficits; Z87.19 Personal history of other diseases of the digestive system
CPT/HCPCS: 43239; 43247; 36415; 80048; 80053; 83690; 85027; 87040; 87505; 88305; 96361; 96374; 96375; 97162; 99223; 99231; 99232; 99233; 99239; 99253; 99285; NC; 70450; 71045; 74019; 74177; 80329; 81003; 82270; 83735; 84439; 85025; 86140; 87086; 87324; 88313; J0131; J1720; J2001; J2405; J2597; J2704; J3010; J3480; J3490

== ENCOUNTER 2019-08-18 11:56 | Outpatient (CLI) | payer MEDICAID, SELFPAY ==
--- NOTE | 2019-08-18 12:00 | DI.RAD_ITS ---
EXAM: XR CHEST 2V PA LATERAL INDICATION: COUGH, R05. COMPARISON: XR PORTABLE CHEST AP from 08/08/2019 TECHNIQUE: 2D digital imaging was performed. FINDINGS: The exam is limited by poor pulmonary inflation. The lungs appear clear. The heart size is normal . No infiltrate or effusion is seen. IMPRESSION: Negative chest x-ray
== END 2019-08-18 12:16 ==
PROVIDERS: PCP Family Medicine; Visit Provider Nurse Practitioner Family
DX: R05 Cough (principal)
CPT/HCPCS: 71046

== ENCOUNTER 2019-08-19 20:51 | Emergency (ER) | payer MEDICAID, SELFPAY ==
[2019-08-19 20:59] VITALS: BP 147/91; PULSE 97; RESP 18; TEMP 36.5; O2SAT 97
--- NOTE | 2019-08-19 21:15 | DI.RAD_ITS ---
EXAM: XR CHEST 2V PA LATERAL CLINICAL HISTORY: cough, wheezing. TECHNIQUE: 2D digital imaging was performed. COMPARISON: XR CHEST 2V PA LATERAL from 08/18/2019 FINDINGS: LUNGS: Clear. No pleural abnormality seen. HEART: Normal. MEDIASTINUM: Normal. OTHER FINDINGS:Normal. BONE:Normal. IMPRESSION: No acute pulmonary findings.
[2019-08-19 21:26] VITALS: RESP 4
[2019-08-19] MEDS: Albuterol/Ipratropium 3 ML UPD VIAL UPD (21:26)
--- NOTE | 2019-08-19 21:49 | W.ED.GENAD ---
Discharge Plan Disposition Patient Disposition: HOME Condition: Stable Discharge Details Chief Complaint: GenMedical Clinical Impression: Otitis media Primary Care Provider: Ren Vaz ED Provider: Chantale Hernandez Home Meds and New Rx's Prescriptions: New amoxicillin 500 mg capsule 500 mg PO TID Qty: 30 RF: 0 No Action trazodone 50 MG tablet 4 tab PO QPM RF: 0 zonisamide 100 MG capsule 2 cap PO QPM RF: 0 desmopressin 0.1 MG tablet 0.15 tab PO QNOON RF: 0 atorvastatin 40 mg Tablet 40 mg PO DAILY RF: 0 quetiapine [Seroquel] 200 mg Tablet 200 mg PO PRN PRNRF: 0 desmopressin 0.1 mg Tablet 0.1 mg PO QAM RF: 0 cholecalciferol (vitamin D3) [Vitamin D3] 1,000 unit Capsule 1,000 mg PO DAILY RF: 0 ferrous gluconate 324 mg (38 mg iron) Tablet 324 mg PO DAILY RF: 0 levothyroxine 200 mcg Capsule 225 mcg PO DAILY RF: 0 calcium carbonate [Tums] 200 mg calcium (500 mg) Tablet,Chewable 200 mg PO DAILY RF: 0 melatonin 3 mg Tablet 9 mg PO HS RF: 0 baclofen 20 mg Tablet 20 mg PO TID RF: 0 magnesium 250 mg Tablet 250 mg PO BID RF: 0 ipratropium-albuterol 0.5 mg-3 mg(2.5 mg base)/3 mL solution for nebulization 3 ml IH QID PRN (Reason: shortness of breath or wheezing) Qty: 90 RF: 0 hydrocortisone 10 mg tablet 10 mg PO QNOON Qty: 0 RF: 0 hydrocortisone [Cortef] 10 MG tablet 20 mg PO QAM Qty: 0 RF: 0 sennosides-docusate sodium [Senexon-S] 8.6-50 mg Tablet 1 tab PO DAILY RF: 0 sucralfate 1 gram Tablet 1 g PO AC & HS Qty: 120 RF: 0 omeprazole magnesium [Acid Riding Double (omeprazole)] 20 mg capsule,delayed release(DR/EC) 40 mg PO BID Qty: 120 RF: 0 Discharge Instructions Instructions: Otitis Media (ED) Additional Instructions: Continue normal fluid management. Closely observe and document urine output. Use antibiotic as prescribed. Recheck with PCP in the next 2 to 3 days. Follow-up on liver function changes noted on labs as well as repeat sodium testing. Sodium tonight noted to be 147. Labs this evening are reassuring. 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 Patient's medical history includes diabetes insipidus, TBI, seizures, leg cramps panhypopituitarism. Patient presents this evening as caregiver of her is concerning for mild fatigue and decreased urine output. Caregiver presents as the log that he follows had no entries for urine output today. After receiving a subsequent text from previous caregivers they did report two urine outputs noted during their shift. Upon arrival patient reports he does have to urinate. Bladder scan at the bedside reveals greater than 400 cc of urine present. Patient denies any dysuria, urgency or frequency. Patient denies any abdominal pain. Patient denies chest pain. Caregiver does report that patient has been eating without any difficulty, eating full meals today. Mild increase in fatigue noted however patient remained arousable throughout the day. Patient did get his full 3.5 L of fluid as part of his daily regimen. Patient has had cough for the last 1-1/2 days. Otherwise has been afebrile. No bowel changes. No nausea, vomiting or diarrhea. On physical exam patient has an obvious left otitis media, mild pharyngeal erythema and scattered wheezing on breath sounds with no associated rhonchi. No increase in respiratory effort. Vital signs reviewed revealing no hypoxia. Patient is afebrile. Patient has benign abdominal exam at this time. Patient able to urinate without difficulty. Urinalysis sent. Plan to check influenza as well as baseline labs. After conversation with caregiver preference is not to give any additional IV fluids as patient has already gotten his maximum of 3.5 L today orally. Patient's urinalysis unremarkable for obvious infection. Chest x-ray normal. Influenza testing negative. Labs reviewed. Patient does have improved sodium levels compared to previous labs in the last few days. Current sodium is 147. Patient's ALT and AST noted to be somewhat increased compared to his baseline however he has no abdominal pain, nausea, vomiting or diarrhea. Lactate noted to be 1.7.labs reviewed with Dr. Hilliard who feels no needed action to be taken. Clinically patient is at his baseline at this time. Patient will answer questions appropriately. Per caregiver patient is at his baseline. Patient has urinated since arrival. Labs reassuring this evening. Patient does have focal otitis media for which she will be treated with antibiotics. Discussed caregivers comfort and taking the patient home. He does feel comfortable taking patient home at this time. I did recommend prompt follow-up with PCP in the next few days and return for any worsening symptoms, changes from baseline or decrease in urine output. Caregiver feels comfortable with discharge home at this time. The patient was stable and requested discharge. Prior to discharge, my usual and customary return precautions were reviewed with the patient - this included follow-up instructions and reasons to return to the Emergency Department if conditions worsens, does not improve as expected, or other new concerns arise. HPI General Date/Time Provider Initiated Documentation: 08/19/19 20:53. HPI Narrative: This a 29-year-old patient presenting to the emergency room for concerns of decreased urine output. Patient did urinate twice today per text message from previous caregiver but evening caregiver was concerned that there is nothing documented in their log. Caregiver reports patient was somewhat fatigued today however he did eat all of his meals normally. Was arousable. Patient does have a cough in the last 2 days. Patient has no complaints of pain. Denies headache, chest pain, abdominal pain. Normal bowel movements. Caregiver concerned as patient was recently admitted for diabetes insipidus and had elevated sodium levels. Requesting levels rechecked. Patient has been afebrile. No difficulty breathing or shortness of breath noted. Denies any other focal sites of pain. No nausea, vomiting, diarrhea noted. Related Data Home Medications Medication Instructions Recorded Confirmed desmopressin 0.15 tab PO QNOON 12/29/15 08/19/19 trazodone 4 tab PO QPM 12/29/15 08/19/19 zonisamide 2 cap PO QPM 12/29/15 08/19/19 atorvastatin 40 mg PO DAILY 05/08/18 08/19/19 cholecalciferol (vitamin D3) 1,000 mg PO DAILY 09/09/18 08/19/19 [Vitamin D3] desmopressin 0.1 mg PO QAM 09/09/18 08/19/19 ferrous gluconate 324 mg PO DAILY 09/09/18 08/19/19 levothyroxine 225 mcg PO DAILY 09/09/18 08/19/19 quetiapine [Seroquel] 200 mg PO PRN PRN 09/09/18 08/08/19 calcium carbonate [Tums] 200 mg PO DAILY 03/21/19 08/19/19 baclofen 20 mg PO TID 03/24/19 08/19/19 magnesium 250 mg PO BID 03/24/19 08/19/19 melatonin 9 mg PO HS 03/24/19 08/19/19 hydrocortisone 10 mg PO QNOON #0 tab 03/28/19 08/08/19 hydrocortisone [Cortef] 20 mg PO QAM #0 tab 03/28/19 08/19/19 ipratropium-albuterol 3 ml IH QID PRN #90 ml 03/28/19 08/08/19 sennosides-docusate sodium 1 tab PO DAILY 08/04/19 08/19/19 [Senexon-S] omeprazole magnesium [Acid Riding Double 40 mg PO BID #120 cap 08/12/19 08/19/19 (omeprazole)] sucralfate 1 g PO AC & HS #120 tab 08/12/19 08/19/19 amoxicillin 500 mg PO TID #30 cap 08/19/19 Previous Rx's Medication Instructions Recorded hydrocortisone 10 mg PO QNOON #0 tab 03/28/19 hydrocortisone [Cortef] 20 mg PO QAM #0 tab 03/28/19 ipratropium-albuterol 3 ml IH QID PRN #90 ml 03/28/19 omeprazole magnesium [Acid Riding Double 40 mg PO BID #120 cap 08/12/19 (omeprazole)] sucralfate 1 g PO AC & HS #120 tab 08/12/19 amoxicillin 500 mg PO TID #30 cap 08/19/19 Allergies Allergy/AdvReac Type Severity Reaction Status Date / Time gemfibrozil [From Lopid] AdvReac Unknown Unverified 08/19/19 21:02 General Stated Complaint: GenMedical KWASI: 3 Review of Systems Constitutional Constitutional: Denies chills, Reports fatigue and Denies fever(s) Cardiovascular Cardiovascular: Denies dyspnea Respiratory Respiratory: Reports cough, Denies dyspnea and Denies stridor Gastrointestinal Gastrointestinal: Denies abdominal pain, Denies diarrhea, Denies nausea and Denies vomiting Genitourinary Genitourinary: Denies hematuria, Denies dysuria and Denies flank pain Integumentary/Breasts Skin/Breast: Denies rash Endocrine Endocrine: Reports fatigue [facility] Medical History Acetabular fracture (Acute) Chemical gastritis (Acute) Constipation (Chronic) Cortical blindness (Chronic) Craniopharyngioma (Acute) CVA (cerebral vascular accident) (Resolved) Diabetes insipidus (Chronic) GERD (gastroesophageal reflux disease) (Chronic) History of brain tumor (Resolved) Hx of fracture of pelvis (Resolved) Insomnia (Chronic) Leg cramps (Chronic) 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Chronic) Seizures (Chronic) TBI (traumatic brain injury) (Chronic) Urinary retention (Resolved) Social History Smoking/Tobacco Use Status: Never Alcohol Intake: current Alcohol type: other Drug use: Never Substance use type: does not use Do you feel safe at home: Yes Do you feel safe in your relationship?: Yes Exam Narrative Exam Narrative: CONST: In no acute distress. arousable. Responds to questions. HENMT: Head nomocephalic, normal to inspection. Atraumatic. Hearing grossly normal. TM with obvious bulging, erythema consistent with otitis media on the left. Erythema and effusion without bulging noted on the right. Mild pharyngeal erythema. No tonsillar exudate. Uvula midline. EYES: General normal appearance. Alignment normal. Eyelids normal. Conjunctiva normal. NECK: Normal visual inspection. FROM. Trachea midline. No Midline tenderness. Mild cervical lymphadenopathy present CHEST: Normal insepection of the chest. RESP: Normal respiratory effort. Speaking full sentences. No cough. No audible wheezing. No retractions. Breath sounds are full and equal bilaterally, scattered wheezing present. No rhonchi. CARDIO: No JVD. No murmur, regular rate and rhythm GI: Abdomen is soft, nontender. Bowel sounds present in all 4 quadrants. MUSCULOSKELETAL: Normal Gait. FROM of all extremities. No lower leg edema SKIN: Normal. Dry. No rashes. Course Vital Signs Vital signs: Vital Signs Temperature 36.5 C 08/19/19 20:59 Pulse 97 H 08/19/19 20:59 Respiratory Rate 18 08/19/19 20:59 Blood Pressure 147/91 H 08/19/19 20:59 Pulse Oximetry 97 08/19/19 20:59 Temperature 36.5 C 08/19/19 20:59 Temperature Source Skin 08/19/19 20:59 Pulse 97 H 08/19/19 20:59 Respiratory Rate 18 08/19/19 20:59 Respiratory Effort 08/19/19 21:08 Blood Pressure 147/91 H 08/19/19 20:59 Pulse Oximetry 97 08/19/19 20:59 Pain Level 3 08/19/19 20:59 Lab/Test Results Lab/Test Results: 08/19/19 21:25 Nose Influenza Types A,B Antigen - Final
--- NOTE | 2019-08-19 22:13 | DI.VRAD_ITS ---
PROCEDURE INFORMATION: Exam: XR Chest, 2 Views Exam date and time: 08/19/2019 9:47 PM Age: 29 years old Clinical indication: Cough and wheezing TECHNIQUE: Imaging protocol: XR of the chest Views: 2 views. COMPARISON: CR XR CHEST 2V PA LATERAL 08/18/2019 12:00 PM FINDINGS: Lungs: Unremarkable. No consolidation. Pleural space: Unremarkable. No pleural effusion. No pneumothorax. Heart/Mediastinum: Unremarkable. No cardiomegaly. Bones/joints: Unremarkable. IMPRESSION: No acute findings. Dictated and Authenticated by: Berlin Pulido MD. Ordering:GARY Kenyon MD
[2019-08-19 22:19] LABS: Bilirubin Negative (Negative); Blood Negative (Negative); Clarity Clear (Clear); Glucose Negative (Negative); Ketones Negative (Negative); Leukocyte Esterase Negative (Negative); Nitrite Negative (Negative); Urobilinogen 0.2 EU/dL (Up TO 0.2); pH 6.5 (5-8)
[2019-08-19 22:40] LABS: Lactate 1.7 mmol/L (0.6-1.4)
[2019-08-19 22:41] LABS: Abs Immature Grans 0.02 k/cumm (0.0-0.09); Absolute Basophil Count 0.02 k/cumm (0.0-0.2); Absolute Eosinophil Count 0.12 k/cumm (0.0-0.7); Absolute Lymphocyte Count 1.85 k/cumm (1.2-3.4); Absolute Monocyte Count 0.64 k/cumm (0.11-0.7); Absolute Neutrophil Count 1.79 k/cumm (1.2-6.7); Basophils % 0.5; Eosinophils % 2.7; HCT 39.2 % (40.0-50.0); HGB 12.8 g/dL (13.5-17.5); Immature Grans % 0.5 %; Lymphocytes % 41.7; Mean Corp. HGB Concentration 32.7 g/dL (32.0-36.0); Mean Corpuscular Hemoglobin 26.4 pg (27.0-33.0); Mean Platelet Volume 9.5 fL (8.0-11.0); Monocytes % 14.4; Neutrophils % 40.2; Platelet Count 237 x1000/uL (130-400); RBC 4.84 m/cumm (4.50-6.00); White Blood Cell Count 4.44 k/cumm (4.4-10.8)
[2019-08-19 22:55] LABS: ALT 169 U/L (16-63); AST 79 U/L (15-37); Albumin 3.5 g/dL (3.4-5.0); Alkaline Phosphatase 103 U/L (46-116); Anion Gap 10.8 mmol/L (3-11); BUN 22 mg/dL (7-18); Bilirubin, Total 0.5 mg/dL (0.2-1.0); CO2 28.2 mmol/L (21.0-32.0); CREATININE 1.19 mg/dL (0.70-1.30); Calcium 8.3 mg/dL (8.5-10.1); Chloride 108 mmol/L (98-107); Glucose 92 mg/dL (74-106); Potassium 3.7 mmol/L (3.5-5.1); Sodium 147 mmol/L (136-145); Total Protein 6.8 g/dL (6.4-8.2)
[2019-08-19 23:32] VITALS: BP 141/96; PULSE 78; RESP 16; TEMP 36.4; O2SAT 99
== END 2019-08-19 23:35 | disposition home or self-care (01) ==
PROVIDERS: Emergency Provider Physician Assistant; PCP Family Medicine
DX: H66.92 Otitis media, unspecified, left ear (principal); E87.0 Hyperosmolality and hypernatremia; R74.0 Nonspecific elevation of levels of transaminase and lactic acid dehydrogenase [LDH]; E23.2 Diabetes insipidus
CPT/HCPCS: 36415; 80053; 87449; 94640; 99284; 71046; 81003; 83605; 85025; 87086; J7620

== ENCOUNTER 2020-01-12 16:35 | Outpatient (REF) | payer MEDICAID, SELFPAY ==
[2020-01-12 19:17] LABS: BUN 20 mg/dL (7-18); Calcium 8.5 mg/dL (8.5-10.1); Chloride 107 mmol/L (98-107); FREE T4 1.16 ng/dL (0.76-1.46); Glucose 120 mg/dL (74-106); Potassium 3.7 mmol/L (3.5-5.1); Sodium 145 mmol/L (136-145)
[2020-01-20 16:00] LABS: Testosterone, Total <7.0 ng/dL (240-950)
== END 2020-01-12 16:55 ==
LOC: LBN 16:35
PROVIDERS: PCP Family Medicine; Visit Provider Internal Medicine Endocrinology, Diabetes & Metabolism
DX: E23.0 Hypopituitarism (principal); E55.9 Vitamin D deficiency, unspecified
CPT/HCPCS: 80048; 82306; 84402; 84403; 84439

== ENCOUNTER 2020-05-30 13:03 | Outpatient (REF) | payer MEDICAID, SELFPAY ==
[2020-05-30 19:11] LABS: Abs Immature Grans 0.03 10^3/uL (0.0-0.06); Absolute Basophil Count 0.02 10^3/uL (0.0-0.2); Absolute Eosinophil Count 0.08 10^3/uL (0.0-0.7); Absolute Lymphocyte Count 1.88 10^3/uL (1.2-3.4); Absolute Monocyte Count 0.45 10^3/uL (0.1-0.8); Basophils % 0.3; Eosinophils % 1.3; HGB 13.1 g/dL (13.5-17.5); Immature Grans % 0.5; MCH 25.7 pg (27.0-33.0); MCV 80.6 fL (80-95); MPV 11.5 fL (8.0-11.0); Monocytes % 7.4; Neutrophils % 59.5; Nucleated RBC 0 %; Platelet Count 215 10^3/uL (130-400); RBC 5.09 10^6/uL (4.36-5.78); RDW 15.3 % (11.8-14.1); RDW-SD 44.2 fL; WBC 6.06 10^3/uL (4.4-10.8)
[2020-05-30 19:40] LABS: ALT 128 U/L (16-63); AST 39 U/L (15-37); Albumin 4.1 g/dL (3.4-5.0); Alkaline Phosphatase 152 U/L (46-116); Anion Gap 9.1 mmol/L (3-11); BUN 20 mg/dL (7-18); Bilirubin, Total 0.3 mg/dL (0.2-1.0); CO2 26.9 mmol/L (21.0-32.0); CREATININE 0.87 mg/dL (0.70-1.30); Calcium 8.9 mg/dL (8.5-10.1); Chloride 105 mmol/L (98-107); Glucose 97 mg/dL (74-106); Potassium 3.5 mmol/L (3.5-5.1); Sodium 141 mmol/L (136-145); Total Protein 7.2 g/dL (6.4-8.2)
== END 2020-05-30 13:23 ==
LOC: NCHCN 13:03
PROVIDERS: PCP Family Medicine; Visit Provider Family Medicine
DX: R74.8 Abnormal levels of other serum enzymes (principal); L50.9 Urticaria, unspecified
CPT/HCPCS: 80053; 85025

== ENCOUNTER 2020-07-10 11:21 | Outpatient (CLI) | payer MEDICAID, SELFPAY ==
--- NOTE | 2020-07-10 | DI.RAD_ITS ---
EXAM: XR ABDOMEN FLAT PLATE CLINICAL HISTORY: GI COMPLAINT, PT SWALLOWED A BATTERY. TECHNIQUE: 2D digital imaging was performed. COMPARISON: CR,XR XR ABDOMEN FLAT UPRIGHT from 08/08/2019 FINDINGS: Hardware in the left hemipelvis is again evident. Bowel gas pattern is nonspecific in the supine pos ition. No radiopaque foreign body. No calcifications seen over the kidneys nor along the course of the ureters. IMPRESSION: No radiopaque foreign body in the abdomen and pelvis. Bowel gas pattern is nonspecific in the supine position. Please note that the lower most aspect of the rectum is not included in the field of view of this mitul dy. Apparently lead shielding was placed over this area. DATA REPOSITORY: RADIATION DOSE DELIVERED:
== END 2020-07-10 11:41 ==
PROVIDERS: PCP Family Medicine; Visit Provider Nurse Practitioner Family
DX: T18.9XXA Foreign body of alimentary tract, part unspecified, initial encounter (principal)
CPT/HCPCS: 74018

== ENCOUNTER 2020-09-08 04:18 | Outpatient (CLI) | payer MEDICAID, SELFPAY ==
--- NOTE | 2020-09-08 | DI.US_ITS ---
EXAM: US ABDOMEN CLINICAL HISTORY: ELEVATED LIVER ENZYMES,R74.8,PANHYPOPITUITARISM,SIGNS OF FATTY LIVER TECHNIQUE: Ultrasound abdomen performed using standard protocol. COMPARISON: CT CT ABDOMEN PELVIS W from 08/07/2019 CR XR ABDOMEN FLAT PLATE from 07/10/2020 FINDINGS: Examination is somewhat limited due to overlying bowel gas. ABDOMINAL AORTA AND IVC: Visualized portions normal caliber. PANCREAS: Normal where visualized. LIVER: There is diffuse increased echogenicity consistent with fatty infiltration. The liver measure s 18.3 cm long. Hepatopedal flow in the Portal Vein. GALLBLADDER: Gallbladder appears contracted and difficult to evaluate sonographically. No evidence o f wall thickening. No pericholecystic fluid identified. BILIARY SYSTEM: Common bile duct measures < 7 mm. No intrahepatic biliary ductal dilation. ANDERSON'S SIGN: Negative. KIDNEYS: Kidneys are symmetric in size. No evidence of renal calculi. No evidence of hydronephrosis. No renal mass or cyst identified. SPLEEN: The spleen measures 12.6 cm long. ASCITES: None seen. IMPRESSION: 1. Limited exam valuation of the gallbladder. The gallbladder is contracted. No biliary ductal dila tation. 2. Hepatomegaly and hepatic steatosis. 3. Upper limits of normal spleen size. DATA REPOSITORY:
== END 2020-09-08 04:38 ==
PROVIDERS: PCP Family Medicine; Visit Provider Family Medicine
DX: K76.0 Fatty (change of) liver, not elsewhere classified (principal); R16.0 Hepatomegaly, not elsewhere classified; K82.0 Obstruction of gallbladder; R74.8 Abnormal levels of other serum enzymes
CPT/HCPCS: 76700

== ENCOUNTER 2020-11-17 21:22 | Emergency (ER) | payer MEDICAID, SELFPAY ==
[2020-11-17 21:24] VITALS: PULSE 52; RESP 18; TEMP 37.2; O2SAT 95
--- NOTE | 2020-11-17 21:30 | DI.RAD_ITS ---
Exam(s) XR TOE RT GREAT EXAM: XR TOE RT GREAT CLINICAL HISTORY: squished toe in elevator, removed nail. TECHNIQUE: 2D digital imaging was performed. COMPARISON: No exams were available for comparison FINDINGS: There is a nondisplaced fracture of the tuft of the distal phalanx of the great toe. No radiopaque f oreign body. No other fractures identified. IMPRESSION: DATA REPOSITORY: RADIATION DOSE DELIVERED:
--- NOTE | 2020-11-17 21:42 | W.ED.GENAD ---
Discharge Plan Disposition Patient Disposition: HOME Condition: Good Discharge Details Clinical Impression: Avulsion of nail Primary Care Provider: Ren Vaz ED Provider: Gabe Jacob Home Meds and New Rx's Prescriptions: Continued levothyroxine 75 mcg capsule 225 mcg PO DAILY RF: 0 clonazepam 2 mg tablet,disintegrating 2 mg PO Q6H PRN PRN (Reason: spasms) Qty: 10 RF: 0 polyethylene glycol 3350 17 gram powder in packet 17 gm PO DAILY PRNRF: 0 metoprolol succinate 25 mg tablet extended release 24 hr 75 mg PO DAILY RF: 0 BenGay Vanishing Scent 2.5 % gel 1 applic TP BID PRNRF: 0 calcium carbonate 500 mg calcium (1,250 mg) tablet,chewable 500 mg PO HS RF: 0 bisacodyl 10 mg suppository 10 mg DE DAILY PRNRF: 0 aspirin 81 mg tablet 81 mg PO DAILY RF: 0 acetaminophen 325 mg tablet 650 mg PO Q6H PRNRF: 0 quetiapine [Seroquel] 200 mg tablet 200 mg PO QHS RF: 0 omeprazole 40 mg capsule,delayed release(DR/EC) 40 mg PO DAILY RF: 0 albuterol sulfate 2.5 mg /3 mL (0.083 %) solution for nebulization 2.5 mg IH Q6H PRNRF: 0 trazodone 100 mg tablet 200 mg PO QHS RF: 0 zonisamide 100 mg capsule 400 mg PO QPM Qty: 120 RF: 0 desmopressin 0.1 mg tablet 0.15 mg PO QNOON RF: 0 trazodone 50 mg tablet 50 mg PO QPM PRNRF: 0 atorvastatin 40 mg Tablet 40 mg PO DAILY RF: 0 quetiapine [Seroquel] 200 mg Tablet 200 mg PO PRN PRNRF: 0 desmopressin 0.1 mg Tablet 0.1 mg PO QAM RF: 0 cholecalciferol (vitamin D3) [Vitamin D3] 1,000 unit Capsule 1,000 mg PO DAILY RF: 0 ferrous gluconate 324 mg (38 mg iron) Tablet 324 mg PO DAILY RF: 0 calcium carbonate [Tums] 200 mg calcium (500 mg) Tablet,Chewable 200 mg PO DAILY RF: 0 melatonin 3 mg Tablet 9 mg PO HS RF: 0 baclofen 20 mg Tablet 20 mg PO TID RF: 0 magnesium 250 mg Tablet 250 mg PO BID RF: 0 ipratropium-albuterol 0.5 mg-3 mg(2.5 mg base)/3 mL solution for nebulization 3 ml IH QID PRN (Reason: shortness of breath or wheezing) Qty: 90 RF: 0 hydrocortisone 10 mg tablet 10 mg PO QNOON Qty: 0 RF: 0 hydrocortisone [Cortef] 10 MG tablet 20 mg PO QAM Qty: 0 RF: 0 penicillin V potassium 500 mg Tablet 500 mg PO QD-QID RF: 0 clonazepam 2 mg Tablet 2 mg PO Q6H PRN PRNRF: 0 montelukast 10 mg Tablet 10 mg PO RF: 0 calcium carbonate 500 mg calcium (1,250 mg) Tablet,Chewable 500 mg RF: 0 Discharge Instructions Instructions: Nail Avulsion (ED) Additional Instructions: There is a small fracture of the distal tuft of your great toe. The toenail will likely fall off in the next few weeks. Please bandage it and change the dressing daily. Please apply triple antibiotic ointment for the nail bed. If you notice any redness, discharge, odor, worsening pain, worsening swelling, fever or chills or signs of infection please return immediately for reassessment. Do not soak the foot. Do not soak the nail. If you notice any worsening of your symptoms, or any new symptoms such as vomiting, diarrhea, fever, chills, shortness of breath, chest pain, numbness, weakness, or fainting , please return immediately to the emergency department for reevaluation. Please follow up with your primary care provider as soon as possible for reassessment and reevaluation. As always, it was a pleasure participating in your medical care today. Referrals: Ren Vaz [Primary Care Provider] - Medical Decision Making 30-year-old male with a past medical history of diabetes insipidus, blindness, developmental delay, traumatic brain injury who presents today for evaluation of injury to his right foot great toe. Per EMS he was at a new care facility and unfortunately his toe got caught in the elevator. They tried wrapping it but it bled through. No other known history. Patient was brought to the ER for further evaluation. Patient is not able to add any other historical component to the history. Care provider who is at bedside is not able to add any other historical components to the history. 10:15 PM X-ray results show evidence of a nondisplaced tuft fracture of the right great toe distal phalanx. Silver nitrate was applied to the base of the nail where there is mild bleeding. 4 x 4 was placed over this, and was wrapped with Coban. This did stop the bleeding. Patient tolerated this well. The patient's caregiver states that the patient has a notable high predilection for ripping things off, as well as eating bandages. We bandaged the entire foot to help prevent any ripping off of the bandaging, recommended that the patient wear sock at all times. Patient is on 500 mg of penicillin every 6 hours for a tooth infection, recommend continuation of this to prevent any infection in the foot. Discussed red flags which to return. Tetanus is updated. Patient is nonambulatory at baseline. I have extensively reviewed the treatment plan and discharge instructions with the patient and their family. I have addressed all patient concerns at this time. The patient and family was made aware of what symptoms to monitor for that would warrant a return to the emergency department. Discussed the plan with the patient and family, they demonstrate verbal understanding and agreement with our assessment and plan at this time. The documentation in this chart was dictated using [employer] dictation software. Please excuse any dictation errors. FINDINGS: Bones/joints: Nondisplaced tuft fracture of the great toe distal phalanx. Other bones and joints are intact. Normal osseous mineralization. Soft tissues: Normal. IMPRESSION: Nondisplaced tuft fracture of the right great toe distal phalanx. Thank you for allowing us to participate in the care of your patient. Dictated and Authenticated by: Maldonado Linda MD 11/17/2020 10:07 PM Eastern Time ([place] & [place]) HPI General Date/Time Provider Initiated Documentation: 11/17/20 21:40. HPI Narrative: 30-year-old male with a past medical history of diabetes insipidus, blindness, developmental delay, traumatic brain injury who presents today for evaluation of injury to his right foot great toe. Per EMS he was at a new care facility and unfortunately his toe got caught in the elevator. They tried wrapping it but it bled through. No other known history. Patient was brought to the ER for further evaluation. Patient is not able to add any other historical component to the history. Care provider who is at bedside is not able to add any other historical components to the history. Related Data Home Medications Medication Instructions Recorded Confirmed atorvastatin 40 mg PO DAILY 05/08/18 11/17/20 cholecalciferol (vitamin D3) 1,000 mg PO DAILY 09/09/18 10/06/19 [Vitamin D3] desmopressin 0.1 mg PO QAM 09/09/18 11/17/20 ferrous gluconate 324 mg PO DAILY 09/09/18 11/17/20 quetiapine [Seroquel] 200 mg PO PRN PRN 09/09/18 10/06/19 calcium carbonate [Tums] 200 mg PO DAILY 03/21/19 10/06/19 baclofen 20 mg PO TID 03/24/19 11/17/20 magnesium 250 mg PO BID 03/24/19 11/17/20 melatonin 9 mg PO HS 03/24/19 11/17/20 hydrocortisone 10 mg PO QNOON #0 tab 03/28/19 11/17/20 hydrocortisone [Cortef] 20 mg PO QAM #0 tab 03/28/19 10/06/19 ipratropium-albuterol 3 ml IH QID PRN #90 ml 03/28/19 10/06/19 acetaminophen 325 mg tablet 650 mg PO Q6H PRN tab 08/23/19 10/06/19 aspirin 81 mg tablet 81 mg PO DAILY 08/23/19 11/17/20 bisacodyl 10 mg rectal suppository 10 mg DE DAILY PRN 08/23/19 10/06/19 calcium carbonate 500 mg calcium 500 mg PO HS tab 08/23/19 10/06/19 (1,250 mg) chewable tablet menthol 2.5 % topical gel 1 applic TP BID PRN gm 08/23/19 10/06/19 metoprolol succinate 25 mg 75 mg PO DAILY tab 08/23/19 10/06/19 tablet,extended release 24 hr omeprazole 40 mg capsule,delayed 40 mg PO DAILY 08/23/19 10/06/19 release polyethylene glycol 3350 17 gram 17 gm PO DAILY PRN 08/23/19 10/06/19 oral powder packet quetiapine 200 mg tablet 200 mg PO QHS 08/23/19 10/06/19 albuterol sulfate 2.5 mg IH Q6H PRN 10/06/19 10/06/19 clonazepam 2 mg disintegrating 2 mg PO Q6H PRN PRN #10 tab 10/06/19 11/17/20 tablet desmopressin 0.1 mg tablet 0.15 mg PO QNOON tab 10/06/19 11/17/20 levothyroxine 75 mcg capsule 225 mcg PO DAILY cap 10/06/19 10/06/19 trazodone 100 mg tablet 200 mg PO QHS tab 10/06/19 11/17/20 trazodone 50 mg tablet 50 mg PO QPM PRN tab 10/06/19 10/06/19 zonisamide 100 mg capsule 400 mg PO QPM #120 cap 11/16/20 11/17/20 calcium carbonate 500 mg 11/17/20 clonazepam 2 mg PO Q6H PRN PRN 11/17/20 11/17/20 montelukast 10 mg PO 11/17/20 penicillin V potassium 500 mg PO QD-QID 11/17/20 11/17/20 Previous Rx's Medication Instructions Recorded hydrocortisone 10 mg PO QNOON #0 tab 03/28/19 hydrocortisone [Cortef] 20 mg PO QAM #0 tab 03/28/19 ipratropium-albuterol 3 ml IH QID PRN #90 ml 03/28/19 clonazepam 2 mg disintegrating 2 mg PO Q6H PRN PRN #10 tab 10/06/19 tablet zonisamide 100 mg capsule 400 mg PO QPM #120 cap 11/16/20 Allergies Allergy/AdvReac Type Severity Reaction Status Date / Time gemfibrozil [From Lopid] AdvReac Unknown Unverified 11/17/20 22:09 General Stated Complaint: Laceration KWASI: 3 Review of Systems All systems reviewed & are unremarkable except as noted in HPI and below PFSH Medical History (Updated 11/17/20 @ 22:20 by Gabe Jacob DO) 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 Constipation 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 Diabetes insipidus Elevated liver enzymes Focal epilepsy GERD (gastroesophageal reflux disease) H/O secondary hypogonadism Hemiparesis, left History of craniopharyngioma History of pica Hx of fracture of pelvis 2018 s/s seizure Hypertriglyceridemia Hypocalcemia Insomnia Mood disorder Osteoporosis Panhypopituitarism Poor dentition Urinary incontinence Urinary retention Surgical History H/O brain surgery right craniotomy for craniopharyngioma Social History Smoking/Tobacco Use Status: Never Smoking risk assessment performed?: Yes Alcohol Intake: current Alcohol type: other Drug use: Never Substance use type: does not use Household members: caregiver current occupation: Disabled Do you feel safe at home: Yes Do you feel safe in your relationship?: Yes Exam Narrative Exam Narrative: 1.Const: Well-nourished, Well-developed, appearing stated age 2.Eyes: PERRL, no conjunctival injection, and symmetrical lids. 3.ENT: Atraumatic external nose and ears. Moist MM. Neck: Symmetric, trachea midline, No thyromegaly. 4.CVS: +S1/S2, No murmurs or gallops. Peripheral pulses 2+ and equal in all extremities. Brisk capillary refill in all extremities. 5.RESP: Unlabored respiratory effort. Clear to auscultation bilaterally. No wheezes rales or rhonchi 6.GI: Soft, Nontender/Nondistended, No hepatosplenomegaly. No guarding or rebound. 7.MSK: Patient's right great toe demonstrate mild swelling to the right great toe, the proximal aspect of the nail demonstrates evidence of avulsion, however the remainder of the nail otherwise remains intact and in place against the skin and the lateral nail and medial nail borders. The proximal bed of the nail appears completely removed, and despite notable manipulation I am unable to place the nailbed back under the nail fold, and I am also unable to move the skin back over the nail itself at the proximal component. Mild oozing of blood from this proximal location. 8.Skin: Warm, Dry. No rashes or lesions. Course Vital Signs Vital signs: Vital Signs Temperature 37.2 C 11/17/20 21:24 Pulse 52 L 11/17/20 21:24 Respiratory Rate 18 11/17/20 21:24 Pulse Oximetry 95 11/17/20 21:24 Temperature 37.2 C 11/17/20 21:24 Temperature Source Temporal Artery Scan 11/17/20 21:24 Pulse 52 L 11/17/20 21:24 Respiratory Rate 18 11/17/20 21:24 Respiratory Effort Non-Labored 11/17/20 21:34 Blood Pressure Position Supine 11/17/20 21:24 Pulse Oximetry 95 11/17/20 21:24 Oxygen Delivery Method Room Air 11/17/20 21:24 Oxygen Flow Rate 0 11/17/20 21:24 Pain Level 6 11/17/20 21:35
--- NOTE | 2020-11-17 22:07 | DI.VRAD_ITS ---
PROCEDURE INFORMATION: Exam: XR Right Toe(s) Exam date and time: 11/17/2020 9:36 PM Age: 30 years old Clinical indication: Injury or trauma; Other: Squished toe in elevator removed nail; Wound; Toes; Right great; Foreign body involvement not specified; Injury date: 11/17/20 TECHNIQUE: Imaging protocol: XR Right toes. Views: Minimum 2 views. COMPARISON: No relevant prior studies available. FINDINGS: Bones/joints: Nondisplaced tuft fracture of the great toe distal phalanx. Other bones and joints are intact. Normal osseous mineralization. Soft tissues: Normal. IMPRESSION: Nondisplaced tuft fracture of the right great toe distal phalanx. Dictated and Authenticated by: Maldonado Linda MD. Ordering:MENDEZ Bernal MD
== END 2020-11-17 22:30 | disposition home or self-care (01) ==
LOC: ER 22:34
PROVIDERS: Emergency Provider Student in an Organized Health Care Education/Training Program; PCP Family Medicine
DX: S97.111A Crushing injury of right great toe, initial encounter (principal); S91.211A Laceration without foreign body of right great toe with damage to nail, initial encounter; S92.424A Nondisplaced fracture of distal phalanx of right great toe, initial encounter for closed fracture; W23.0XXA Caught, crushed, jammed, or pinched between moving objects, initial encounter; W24.0XXA Contact with lifting devices, not elsewhere classified, initial encounter
CPT/HCPCS: 28490; 90471; 99281; 73660

== ENCOUNTER 2021-02-15 04:35 | Outpatient (CLI) | payer MEDICAID, SELFPAY ==
[2021-02-15 12:40] LABS: Anion Gap 9.9 mmol/L (3-11); BUN 18 mg/dL (7-18); CO2 23.1 mmol/L (21.0-32.0); CREATININE 0.9 mg/dL (0.70-1.30); Calcium 8.6 mg/dL (8.5-10.1); Chloride 105 mmol/L (98-107); FREE T4 1.28 ng/dL (0.76-1.46); Glucose 111 mg/dL (74-106); Potassium 3.8 mmol/L (3.5-5.1); Sodium 138 mmol/L (136-145)
[2021-02-15 13:00] LABS: Vitamin D 25 Total 39.9 ng/mL (30-100)
[2021-02-20 08:44] LABS: Testosterone, Total <7.0 ng/dL (240-950)
== END 2021-02-15 04:36 | disposition home or self-care (01) ==
PROVIDERS: PCP Family Medicine; Visit Provider Internal Medicine Endocrinology, Diabetes & Metabolism
DX: E23.0 Hypopituitarism (principal)
CPT/HCPCS: 36415; 80048; 82306; 84403; 84439

== ENCOUNTER 2021-05-22 13:48 | Outpatient (REF) | payer MEDICAID, SELFPAY ==
[2021-05-22 14:43] LABS: HCT 41.4 % (40.0-50.0); HGB 13.4 g/dL (13.5-17.5); MCH 26.2 pg (27.0-33.0); MCHC 32.4 % (32.0-36.0); MCV 80.9 fL (80-95); MPV 10.5 fL (8.0-11.0); Platelet Count 238 10^3/uL (130-400); RBC 5.12 10^6/uL (4.36-5.78); RDW 14.2 % (11.8-14.1); WBC 4.85 10^3/uL (4.4-10.8)
[2021-05-22 15:01] LABS: Hemoglobin A1C 5.1 % (<5.7); Iron 60 ug/dL (65-175); Total Iron Binding Capacity 221 ug/dL (250-450); Transferrin Sat 27 % (20-55)
[2021-05-22 15:09] LABS: ALT 132 U/L (16-63); AST 42 U/L (15-37); Albumin 4.1 g/dL (3.4-5.0); Alkaline Phosphatase 125 U/L (46-116); Anion Gap 11.6 mmol/L (3-11); BUN 21 mg/dL (7-18); Bilirubin, Total 0.3 mg/dL (0.2-1.0); CO2 27.4 mmol/L (21.0-32.0); CREATININE 0.9 mg/dL (0.70-1.30); Calculated LDL 37 mg/dL (<100); Chloride 108 mmol/L (98-107); Cholesterol 104 mg/dL (<200); Glucose 67 mg/dL (74-106); HDL Cholesterol 33 mg/dL (40-60); Potassium 3.5 mmol/L (3.5-5.1); Sodium 147 mmol/L (136-145); Total Protein 7.5 g/dL (6.4-8.2); Triglyceride 172 mg/dL (<150)
[2021-05-24 01:03] LABS: Vitamin D 25 Total 38.3 ng/mL (30-100)
== END 2021-05-22 13:49 | disposition home or self-care (01) ==
LOC: NCHCN 13:48
PROVIDERS: PCP Family Medicine; Visit Provider Family Medicine
DX: E87.1 Hypo-osmolality and hyponatremia (principal); R74.8 Abnormal levels of other serum enzymes; D64.9 Anemia, unspecified; M81.0 Age-related osteoporosis without current pathological fracture; Z00.00 Encounter for general adult medical examination without abnormal findings
CPT/HCPCS: 80053; 80061; 82306; 85027; 83036; 83540; 83550

== ENCOUNTER 2021-09-13 00:55 | Outpatient (CLI) | payer MEDICAID, SELFPAY ==
--- NOTE | 2021-09-13 07:00 | DI.US_ITS ---
Exam(s) US ABDOMEN EXAM: US ABDOMEN CLINICAL HISTORY: ELEVATED LIVER ENZYMES, R74.8; PANHYPOPITUITARISM; SEIZURE DISORDER TECHNIQUE: Ultrasound performed using standard protocol. COMPARISON: CT CT ABDOMEN PELVIS W from 08/07/2019 US US ABDOMEN from 09/08/2020 FINDINGS: Ultrasound examination of the abdomen was performed according to the usual protocol. The examination was somewhat limited due to the patient's inability to cooperate and there was this significant lydia tity of overlying bowel gas as well. Visualized liver parenchyma shows increased echogenicity, suspect hepatic steatosis. No focal hepati c lesion identified. No hepatomegaly. Abdominal aorta and IVC are of normal diameter. Gallbladder is contracted and Overlying bowel gas obscures portions of the gallbladder. cholelithiasi s not excluded as there is some shadowing in this region. If there is a high clinical suspicion of c holelithiasis or cholecystitis, additional evaluation with MRCP may be considered. Pancreas was poorly visualized due to overlying bowel gas. Common bile duct nonvisualized due to ove rlying bowel gas. Kidneys are grossly unremarkable as visualized, no gross hydronephrosis. Spleen unremarkable in appearance. IMPRESSION: Technically limited study due to overlying bowel gas and patient's inability to cooperate. If there is a high clinical suspicion of cholelithiasis or biliary dilatation, additional evaluation with MRCP may be considered. DATA REPOSITORY:
== END 2021-09-13 01:15 ==
PROVIDERS: PCP Family Medicine; Visit Provider Family Medicine
DX: R74.8 Abnormal levels of other serum enzymes (principal)
CPT/HCPCS: 76700

== ENCOUNTER 2022-02-26 18:24 | Outpatient (REF) | payer MEDICAID, SELFPAY ==
[2022-02-26 16:47] LABS: HCT 40.8 % (40.0-50.0); HGB 13.6 g/dL (13.5-17.5); MCH 25.2 pg (27.0-33.0); MCHC 33.3 % (32.0-36.0); MCV 76 fL (80-95); MPV 10.5 fL (8.0-11.0); Platelet Count 226 10^3/uL (130-400); RBC 5.39 10^6/uL (4.36-5.78); RDW 15.7 % (11.8-14.1); RDW-SD 42.9 fL; WBC 6.59 10^3/uL (4.4-10.8)
[2022-02-26 17:06] LABS: ALT 60 U/L (16-63); AST 21 U/L (15-37); Albumin 4.3 g/dL (3.4-5.0); Alkaline Phosphatase 116 U/L (46-116); Anion Gap 10.8 mmol/L (3-11); BUN 16 mg/dL (7-18); Bilirubin, Total 0.3 mg/dL (0.2-1.0); CO2 26.2 mmol/L (21.0-32.0); CREATININE 0.9 mg/dL (0.70-1.30); Calcium 9.1 mg/dL (8.5-10.1); Chloride 104 mmol/L (98-107); FREE T4 1.42 ng/dL (0.76-1.46); Glucose 96 mg/dL (74-106); Potassium 3.8 mmol/L (3.5-5.1); Sodium 141 mmol/L (136-145); Total Protein 7.5 g/dL (6.4-8.2)
[2022-02-26 17:19] LABS: TSH < 0.01 uIU/mL (0.36-3.74)
[2022-02-26 17:22] LABS: Iron 37 ug/dL (65-175); Total Iron Binding Capacity 267 ug/dL (250-450); Transferrin Sat 14 % (20-55)
== END 2022-02-26 18:25 | disposition home or self-care (01) ==
LOC: NCHCN 18:24
PROVIDERS: PCP Family Medicine; Visit Provider Family Medicine
DX: E03.8 Other specified hypothyroidism (principal); R74.8 Abnormal levels of other serum enzymes; E23.2 Diabetes insipidus; R71.8 Other abnormality of red blood cells
CPT/HCPCS: 80053; 85027; 83540; 83550; 84439; 84443

== ENCOUNTER 2022-04-22 16:04 | Outpatient (REF) | payer MEDICAID, SELFPAY ==
[2022-04-22 16:26] LABS: TSH (W/Ref FT4) < 0.01 uIU/mL (0.36-3.74)
[2022-04-22 17:03] LABS: FREE T4 1.22 ng/dL (0.76-1.46)
== END 2022-04-22 16:05 | disposition home or self-care (01) ==
LOC: NCHCN 16:04
PROVIDERS: PCP Family Medicine; Visit Provider Family Medicine
DX: E03.8 Other specified hypothyroidism (principal)
CPT/HCPCS: 84439; 84443

== ENCOUNTER 2023-03-03 12:49 | Outpatient (REF) | payer MEDICAID, SELFPAY ==
[2023-03-03 14:59] LABS: HCT 39.5 % (40.0-50.0); HGB 12.9 g/dL (13.5-17.5); MCHC 32.7 % (32.0-36.0); MCV 77 fL (80-95); MPV 10.5 fL (8.0-11.0); Platelet Count 239 10^3/uL (130-400); RBC 5.16 10^6/uL (4.36-5.78); RDW 14.6 % (11.8-14.1); RDW-SD 40.7 fL; WBC 5.55 10^3/uL (4.4-10.8)
[2023-03-03 15:27] LABS: Iron 32 ug/dL (65-175); Total Iron Binding Capacity 252 ug/dL (250-450); Transferrin Sat 13 % (20-55)
[2023-03-03 15:36] LABS: ALT 59 U/L (16-63); AST 21 U/L (15-37); Albumin 4.2 g/dL (3.4-5.0); Alkaline Phosphatase 116 U/L (46-116); Anion Gap 9.7 mmol/L (3-11); BUN 16 mg/dL (7-18); Bilirubin, Total 0.3 mg/dL (0.2-1.0); CO2 27.3 mmol/L (21.0-32.0); Calcium 8.9 mg/dL (8.5-10.1); Chloride 103 mmol/L (98-107); Estimated GFR 102.55 (mL/min/1.73m2); Ferritin 58 ng/mL (26-388); Glucose 95 mg/dL (74-106); Potassium 3.4 mmol/L (3.5-5.1); Sodium 140 mmol/L (136-145); Total Protein 7.2 g/dL (6.4-8.2)
[2023-03-03 16:49] LABS: FREE T4 1.13 ng/dL (0.76-1.46)
== END 2023-03-03 12:50 | disposition home or self-care (01) ==
LOC: NCHCN 12:49
PROVIDERS: PCP Family Medicine; Visit Provider Family Medicine
DX: D64.9 Anemia, unspecified (principal); E23.0 Hypopituitarism; E03.8 Other specified hypothyroidism
CPT/HCPCS: 80053; 85027; 82728; 83540; 83550; 84439

== ENCOUNTER 2023-04-02 03:03 | Outpatient (CLI) | payer MEDICAID, SELFPAY ==
[2023-04-02 07:51] LABS: Bilirubin Negative (Negative); Blood Negative (Negative); Clarity Clear (Clear); Glucose Negative (Negative); Ketones Negative (Negative); Leukocyte Esterase Negative (Negative); Nitrite Negative (Negative); Urobilinogen 0.2 mg/dL (Up to 0.2)
[2023-04-02 09:04] LABS: FREE T4 1.12 ng/dL (0.76-1.46)
[2023-04-09 12:59] LABS: Testosterone, Free <0.13 ng/dL (4.85-19.0); Testosterone, Total <7.0 ng/dL (240-950)
== END 2023-04-02 03:04 | disposition home or self-care (01) ==
LOC: LBO 03:03
PROVIDERS: PCP Family Medicine; Visit Provider Internal Medicine Endocrinology, Diabetes & Metabolism
DX: E23.0 Hypopituitarism (principal); E27.49 Other adrenocortical insufficiency; E23.2 Diabetes insipidus
CPT/HCPCS: 36415; 84402; 84403; 81003; 84439

== ENCOUNTER 2023-09-18 13:25 | Outpatient (REF) | payer MEDICAID, SELFPAY ==
[2023-09-18 16:08] LABS: INR 1.1 (0.9-1.1); Prothrombin Time 10.7 sec (9.1-11.1)
[2023-09-18 16:27] LABS: ALT 69 U/L (16-63); AST 23 U/L (15-37); Alkaline Phosphatase 111 U/L (46-116); Anion Gap 12.8 mmol/L (3-11); BUN 18 mg/dL (7-18); Bilirubin, Total 0.4 mg/dL (0.2-1.0); CO2 26.2 mmol/L (21.0-32.0); Calcium 8.8 mg/dL (8.5-10.1); Chloride 109 mmol/L (98-107); Estimated GFR 101.92 (mL/min/1.73m2); Glucose 95 mg/dL (74-106); Potassium 3.7 mmol/L (3.5-5.1); Sodium 148 mmol/L (136-145); Total Protein 7.2 g/dL (6.4-8.2)
[2023-09-18 16:35] LABS: Abs Immature Grans 0.01 10^3/uL (0.0-0.06); Absolute Basophil Count 0.03 10^3/uL (0.0-0.2); Absolute Eosinophil Count 0.16 10^3/uL (0.0-0.7); Absolute Lymphocyte Count 2.37 10^3/uL (1.2-3.4); Absolute Monocyte Count 0.53 10^3/uL (0.1-0.8); Basophils % 0.5; Eosinophils % 2.5; HCT 39.6 % (40.0-50.0); Immature Grans % 0.2; MCH 25.2 pg (27.0-33.0); MCHC 32.8 % (32.0-36.0); MCV 77 fL (80-95); MPV 10.4 fL (8.0-11.0); Monocytes % 8.3; Neutrophils % 51.5; Platelet Count 267 10^3/uL (130-400); RBC 5.16 10^6/uL (4.36-5.78); RDW 15.2 % (11.8-14.1); RDW-SD 42.3 fL
== END 2023-09-18 13:26 | disposition home or self-care (01) ==
LOC: NCHCN 13:25
PROVIDERS: PCP Family Medicine; Referring Provider Student in an Organized Health Care Education/Training Program; Visit Provider Student in an Organized Health Care Education/Training Program
DX: D50.9 Iron deficiency anemia, unspecified (principal); R79.89 Other specified abnormal findings of blood chemistry; E23.0 Hypopituitarism; E27.49 Other adrenocortical insufficiency
CPT/HCPCS: 80053; 85025; 85610

== ENCOUNTER → 2023-10-03 00:17 | Outpatient (CLI) | payer MEDICAID, SELFPAY ==
--- NOTE | 2023-10-03 | DI.CT_ITS ---
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 TECHNIQUE: Imaging Protocol: Axial computed tomography images with coronal and sagittal reformatted images were created and reviewed COMPARISON: CT CT HEAD WO from 08/07/2019 FINDINGS: Ventricles and Extra axial spaces: Stable ex vacuo dilatation of the right frontal horn. Hemorrhage: None. Cerebral parenchyma: No evidence of acute infarct or mass. Stable large area of encephalomalacia in the right frontal and temporal lobes. Surgical clip again noted. Midline shift: None. Brainstem/Cerebellum: Normal. Calvarium: Right craniotomy again noted. Visualized Paranasal sinuses:Small amount of mucous retention within sinuses. Marked improvement fro m prior. Prior sinus surgery noted. Mastoids: Clear. Soft Tissues: Unremarkable. ORBITS: Unremarkable. PITUITARY: Not enlarged. IMPRESSION: No acute intracranial process.Stable area of right frontal temporal encephalomalacia. RADIATION DOSE DELIVERED: Total DLP DATA REPOSITORY: All CT scans at this facility are submitted to the National Radiology Data Registry (NRDR) Dose Index Registry (DIR) with the [employer] (ACR). RADIATION OPTIMIZATION: All CT scans at this facility use at least one of these dose optimization te chniques: automated exposure control; mA and/or kV adjustment per patient size (includes targeted exa ms where dose is matched to clinical indication); or iterative reconstruction.
--- NOTE | 2023-10-03 09:20 | DI.DEXA_ITS ---
Exam(s) XR DEXA BONE DENSITY W/WO ALLISON EXAM: XR DEXA BONE DENSITY W/WO ALLISON CLINICAL HISTORY: MALE HYPOGONADISM E29.1 USE OF SYSTEMIC STEROIDS Z79.52 TECHNIQUE: COMPARISON: CT CT ABDOMEN PELVIS W from 08/04/2019 FINDINGS: Lateral Spine Image: The appearance of the spine is stable with multiple old compression type deformi ties. Right hip: Total T-Score: -1.9 Total Z-Score: -1.8 T- and Z-scores: Findings are consistent with osteopenia. No evidence of osteoporosis. Lumbar Spine: Total T-Score: -3.7 Total Z-Score: -3.7 T- and Z-scores: Findings are consistent with osteoporosis. IMPRESSION: Osteoporosis in the lumbar spine.
== END ==
PROVIDERS: PCP Family Medicine; Visit Provider Internal Medicine Endocrinology, Diabetes & Metabolism
DX: D44.4 Neoplasm of uncertain behavior of craniopharyngeal duct (principal); G93.89 Other specified disorders of brain; Z98.890 Other specified postprocedural states; M81.0 Age-related osteoporosis without current pathological fracture; M85.88 Other specified disorders of bone density and structure, other site; E29.1 Testicular hypofunction; Z79.52 Long term (current) use of systemic steroids
CPT/HCPCS: 77080; 70450

== ENCOUNTER 2024-03-05 15:40 | Outpatient (REF) | payer MEDICAID, SELFPAY ==
--- OUTSIDE RECORDS SUMMARY | 2024-03-05 15:43 | XMS_ITS | Encounter Summary ---
Author Organization [facility] Address [address] [place] [address] Care Team Providers Care Manufacturing Helper Name Role Phone Ren Vaz MD Primary Care Provider [phone] Reason for Visit * Reason Onset Date Comments Requesting Sooner Appointment 05/21/2019 Patient Information Update 05/21/2019 Encounter Details Date Type Department Care Team (Late st Contact Info) Description 05/21/2019 Telephone [facility] Endocrinology - [address] [address] Lesley Jeffrey RN Requesting Sooner Appointment; Patient Information Update Social History Tobacco Use Types Packs/Day Years Used Date Smoking Tobacco: Never Smokeless Tobacco: Never Alcohol Use Standard Drinks/Week Comments No 0 (1 standard drink = 0.6 oz pur e alcohol) Sex and Gender Information Value Date Recorded Sex Assigned at Not on file Gender Identity Not on file Sexual Orientation Not on file documented as of this encounter Functional Status Functional Status Response Date of Assess ment Is this person blind or does he/she have serious difficulty seeing even when wearing glasses? Yes 9 Because of a physical, menta l, or emotional condition, does this person have difficulty doing errands alone such as visiting a doctor's office or shopping? Yes 10/01/2018 Cognitive Status Response Date of Assessm ent Because of a physical, menta l, or emotional condition, does this person have serious difficulty concentrating, remembering, or making decisions? Yes 10/01/2018 documented as of this encounter Miscellaneous Notes * Telephone Encounter - Wilder ZaidiDO - 05/23/2019 1641 EST Add him to any open space that I have this week in my clinic. If there are no open spaces then please add him to 1 PM any day next week as I am bond broker and have no patients scheduled in the morning. Please send me an email confirming date and time of appointment so I can put on my calendar. * Telephone Encounter - Lesley Jeffrey RN - 05/21/2019 1059 EST Images from the original note were not included. Message received from PAC : Cam Pisano 10:29 []Hide copied text []Hover for details Land Law Examiner calling on behalf of client to get sooner FUR w/Dr Zaidi. Soonest this radio news writer could schedule was September 2019. ?? Stated patient had 'an incident' that would qualify him for sooner appt date and that Dr Zaidi knows about this patient's history and would want to see him sooner than that. ?? Asked for nurse to call her back as well as client solutions manager for sooner appt date Returning call to outpatient case manager 05/21/19 10:37 [employer] Demonstrator and radio news writer identified that the patient that was to be discussed IS NOT the patient routed to this office. PCP had recommended to see Dr. Zaidi Behavior stems all from endocrinology. Wants a sooner appointment. The encounter will be routed to the provider. Opening an encounter under the correct patient. Name, date of and city where patient lives written on a sticky note to not include those information in the encounter that had originally been sent to this radio news writer LESLEY COURTNEY RN 05/21/2019 11:01 documented in this encounter Plan of Treatment Upcoming Encounters Date Type Department Care Team (Late st Contact Info) Description 09/09/2024 10:20 EST Office Visit [facility] Endocrinology - [address] [id number] Day Littlejohn MD PhD [address] [address] documented as of this encounter Visit Diagnoses Not on filedocumented in this encounter Care Teams Manufacturing Helper Relationship Specialty Start Date End Date Ren Vaz MD [address] [place] [address] PCP - General 09/30/18 documented as of this encounter
--- OUTSIDE RECORDS SUMMARY | 2024-03-05 15:43 | XMS_ITS | Encounter Summary ---
Author Organization [facility] Address [address] [place] [address] Care Team Providers Care Marketing Financial Analyst Name Role Phone Ren Vaz MD Primary Care Provider [phone] Reason for Visit * Reason Onset Date Comments Home Health 01/12/2020 discuss other la b draws and flexeril Encounter Details Date Type Department Care Team (Late st Contact Info) Description 01/12/[address] [facility] Endocrinology - [facility] [address] [place] [address] Wilder Zaidi, DO [address] [facility] [address] [place] [address] Home Health (discuss other lab draws and flexeril ) Social History Tobacco Use Types Packs/Day Years [...] encounter Miscellaneous Notes * Telephone Encounter - Carlos Alberto Benitez RN - 01/12/2020 1529 EDT Called and spoke with Ladonna RN in regards to pt. Pt had labs completed today and that there wasno other tasks for RN to perform. RN to reach out to PCP as not enough level of care needed to warrant HH visits and pt may be able to travel to PCP to have labs done. Will follow up with office. * Telephone Encounter - Robin Baird - 01/12/2020 1449 EDT Ladonna home health RN She megan labs today that were ordered. Ladonna doesn't know what else Miguel Angel would need [facility]. Also maybe In need for flexeril and should patient go through PCP for that . Please call to discuss. documented in this encounter Plan of Treatment Upcoming Encounters Date Type Department Care Team (Late st Contact Info) Description 09/09/2024 10:[address] [facility] Endocrinology - [address] [phone] Day Littlejohn MD PhD [address] [place] [address] [address] [place] [address] documented as of this encounter Visit Diagnoses Not on filedocumented in this encounter Care Teams Marketing Financial Analyst Relationship Specialty Start Date End Date Ren Vaz MD [facility] [address] [place] [address] PCP - General 09/30/18 documented as of this encounter
--- OUTSIDE RECORDS SUMMARY | 2024-03-05 15:43 | XMS_ITS | Encounter Summary ---
Author Organization [facility] Address [address] [place] [address] Care Team Providers Care Limnology Teacher Name Role Phone Ren Vaz MD Primary Care Provider [phone] Reason for Visit * Reason Onset Date Comments Appointment Related 11/19/2019 Encounter Details Date Type Department Care Team (Late st Contact Info) Description 11/19/2019 Telephone [facility] Endocrinology - [facility] [address] [place] [address] Wilder Zaidi, DO [address] [facility] [address] [place] [address] Appointment Related Social History Tobacco Use Types Packs/Day Years [...] encounter Miscellaneous Notes * Telephone Encounter - Tomasa Merrill - 11/19/2019 1347 EDT 11/19/2019- [facility] for patient to call back to change 11/26/2019 Dr. Zaidi appointment to a televideo visit. documented in this encounter Plan of Treatment Upcoming Encounters Date Type Department Care Team (Late st Contact Info) Description 09/09/2024 10:20 EST Office Visit [facility] Endocrinology - [address] [address] Day Littlejohn MD PhD [address] [place] [address] [place] [phone] documented as of this encounter Visit Diagnoses Not on filedocumented in this encounter Care Teams Limnology Teacher Relationship Specialty Start Date End Date Ren Vaz MD [facility] [place] [address] PCP - General 09/30/18 documented as of this encounter
--- OUTSIDE RECORDS SUMMARY | 2024-03-05 15:43 | XMS_ITS | Encounter Summary ---
Author Organization [facility] Address [address] [place] [address] Care Team Providers Care Wood Preparation Supervisor Name Role Phone Ren Vaz MD Primary Care Provider [phone] Reason for Visit * Reason Onset Date Comments Labs Only 04/11/2020 Encounter Details Date Type Department Care Team (Late st Contact Info) Description 04/11/2020 Telephone [facility] Endocrinology - [facility] [address] [place] [address] Wilder Zaidi, DO [address] [facility] [address] [place] [address] Labs Only Social History Tobacco Use Types Packs/Day Years Used Date Smoking Tobacco: Never Smokeless Tobacco: Never Alcohol Use Standard Drinks/Week Comments No 0 (1 standard drink = 0.6 oz pur e alcohol) Interpersonal Safety Answer Date Record ed Physically Hurt Never 02/06/2020 Verbally Threaten Not on file 02/06/2020 Sex and Gender Information Value Date Recorded [...] encounter Miscellaneous Notes * Telephone Encounter - Lesley Jeffrey RN - 04/11/2020 1527 EDT Lab orders entered by Dr. Zaidi have been electronically faxed 04/11/20 15:27 to [facility] at [phone]. Lab orders entered by Dr. Zaidi have been electronically faxed 04/11/20 15:31 to [facility] at [phone]. LESLEY COURTNEY RN 04/11/2020 15:31 * Telephone Encounter - Lesley Jeffrey RN - 04/11/2020 1229 EDT Returning call 04/11/20 12:29 Spoke to : Mavis Per caller, patient is to have sodium checked every 3 months. Caller does not have the order. Would need the order faxed to her or hospital. This software writer will be faxing it to both fax numbers once we have the answer from the provider. Mavis's fax number : [phone] [facility] : [phone] (fax) LESLEY COURTNEY RN 04/11/2020 12:33 * Telephone Encounter - Mirna Ervin - 04/11/2020 1215 EDT [facility] is calling to ask if orders have been put in for patient's blood work. Patient is there now. Paper Sealer tried to reach nurse but was unable. documented in this encounter Plan of Treatment Upcoming Encounters Date Type Department Care Team (Late st Contact Info) Description 09/09/2024 10:20 EST Office Visit [facility] Endocrinology - [place] [address] [place] [address] Day Littlejohn MD PhD [address] [facility] [address] [place] [address] documented as of this encounter Visit Diagnoses Diagnosis 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HCC-CMS)- Primary Panhypopituitarism documented in this encounter Care Teams Wood Preparation Supervisor Relationship Specialty Start Date End Date Ren Vaz MD [address] [place] [address] PCP - General 09/30/18 documented as of this encounter
--- OUTSIDE RECORDS SUMMARY | 2024-03-05 15:43 | XMS_ITS | Encounter Summary ---
Author Organization [facility] Address [address] [place] [address] Care Team Providers Care Presales Consultant Name Role Phone Ren Vaz MD Primary Care Provider [phone] Reason for Visit * Reason Onset Date Comments Results 03/10/2019 Encounter Details Date Type Department Care Team (Late st Contact Info) Description 03/10/2019 Telephone [facility] Endocrinology - [facility] [address] [place] [address] Wilder Zaidi, DO [address] [facility] [address] [place] [address] Results Social History Tobacco Use Types Packs/Day Years [...] Encounter - Carlos Alberto Benitez RN - 03/10/2019 1237 EDT Called and spoke with pt insurance case manager and relayed Dr. Zaidi's message below: Please contact patient's caregivers. The patient Miguel Angel is nonverbal. Please advise him that I have reviewed his blood work obtained at [facility] drawn on 03/04/2019. His sodium was stable at 144. They should continue his current dose of DDAVP and fluid restriction. Repeat sodium in 3 months unless there is any significant changes in his behavior or urine output etc. Please advise his caretakers to contact me with any questions or concerns Patient insurance case manager verbalized understanding. No barriers to learning noted. * Telephone Encounter - Wilder Zaidi Do - 03/10/2019 0933 EDT Please contact patient's caregivers. The patient Miguel Angel is nonverbal. Please advise him that I have reviewed his blood work obtained at [facility] drawn on 03/04/2019. His sodium was stable at 144. They should continue his current dose of DDAVP and fluid restriction. Repeat sodium in 3 months unless there is any significant changes in his behavior or urine output etc. Please advise his caretakers to contact me with any questions or concerns documented in this encounter Plan of Treatment Upcoming Encounters Date Type Department Care Team (Late st Contact Info) Description 09/09/2024 10:20 EST Office Visit [facility] Endocrinology - [address] [address] Day Littlejohn MD PhD [address] [place] [address] [address] [place] [address] documented as of this encounter Visit Diagnoses Not on filedocumented in this encounter Care Teams Presales Consultant Relationship Specialty Start Date End Date Ren Vaz MD [facility] [place] [address] PCP - General 09/30/18 documented as of this encounter
--- OUTSIDE RECORDS SUMMARY | 2024-03-05 15:43 | XMS_ITS | Encounter Summary ---
Author Organization [facility] Address [address] [place] [address] Care Team Providers Care Patient Relations Liaison Name Role Phone Ren Vaz MD Primary Care Provider [phone] Reason for Referral * (Routine/Next Available) - Receiving Office to Obtain Authorization Specialty Diagnoses / Procedures Referred By Contac t Referred To Contact Procedures CT OUTSIDE IMAGES HEAD Imaging, External Referral ID Status Reason Start Date Expiration Date Visits Requested Visits Authorized [id number] Receiving Office to Obtain Authorization 10/03/2023 1 1 Reason for Visit * (Routine/Next Available) - Receiving Office to Obtain Authorization Specialty Diagnoses / Procedures Referred By Contac t Referred To Contact Procedures CT OUTSIDE IMAGES HEAD Imaging, External Referral ID Status Reason Start Date Expiration Date Visits Requested Visits Authorized [id number] Receiving Office to Obtain Authorization 10/03/2023 1 1 Encounter Details Date Type Department Care Team (Latest Contact Info) Description 10/03/2023 15:30 EDT - 10/03/2023 23:59 EDT Hospital Encounter [facility] Secondary Reads [place] Discharge Disposition: Home or Self Care Social History Tobacco Use Types Packs/Day Years [...] Yes 10/01/2018 documented as of this encounter Medications at Time of Discharge Medication Sig Dispensed Refills Start Date End Date acetaminophen (TYLENOL) 325 mg tablet Take 200 mg by mouth every 4 hours as needed for Pain or Fever. Reported on 10/31/2016 02/25/2011 aspirin (ASPIRIN EC) 81 mg EC tablet Take 1 Tablet by mouth daily. atorvastatin (LIPITOR) 40 mg tablet Take 1 Tablet by mouth daily. baclofen (LIORESAL) 20 mg tablet Take 1 Tablet by mouth 4 times daily. calcium carbonate (TUMS) 200 mg calcium (500 mg) tablet,chewable Take 1 Tablet by mouth daily. cetirizine (ZYRTEC) 10 mg tablet Take 1 Tablet by mouth daily. Cholecalciferol, Vitamin D3, 400 unit Tab Take 2.5 Tablets by mouth daily. 08/24/2010 cyclobenzaprine (FLEXERIL) 10 mg tablet Take 10 mg by mouth 3 times daily. desmopressin (DDAVP) 0.1 mg tablet Take 0.5 Tabs by mouth 3 times daily. Take 1/2 tab three times daily 45 Tab 3 07/29/2013 docusate sodium (STOOL SOFTENER) 100 mg capsule Take 1 Capsule by mouth daily. ferrous gluconate (FERGON) 324 mg (38 mg iron) tablet Take 1 Tablet by mouth daily with breakfast. HYDROCODONE/ACETAMINOPHEN (VICODIN ORAL) Take 5 mg by mouth. hydrocortisone (CORTEF) 10 mg tablet Take 1 Tab by mouth 2 times daily Takes @@ 1200 & 1700 180 Tab 3 11/08/2014 levothyroxine (SYNTHROID) 200 mcg tablet Take 1 Tablet by mouth daily. magnesium gluconate (MAG-G ORAL) Take 250 mg by mouth 2 times daily. Melatonin 3 mg Tab Take 10 mg by mouth at bedtime. 08/24/2010 metoprolol (LOPRESSOR) 25 mg tablet Take 25 mg by mouth daily. montelukast (SINGULAIR) 10 mg tablet 01/27/2023 omeprazole (PRILOSEC) 20 mg capsule Take 2 Capsules by mouth daily. Prazosin (MINIPRESS) 2 mg capsule 03/03/2023 pyridoxine, vitamin B6, (VITAMIN B6) 50 mg tablet Take 1 Tablet by mouth daily. quetiapine (SEROQUEL XR) 150 mg ER 24 hr tablet 03/04/2023 quetiapine (SEROQUEL) 300 mg tablet Take 200 mg by mouth at bedtime. 08/24/2010 QUEtiapine (SEROQUEL) 50 mg tabletIndications:Gonadotr opin deficiency (HCC-CMS),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HCC-CMS),Panhypopituitari sm (HCC-CMS),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HCC-CMS),Secondary hypothyroidism Take 25 mg by mouth daily. Takes at 25 mg at noon sennosides (SENEXON ORAL) Take by mouth. testosterone (ANDROGEL) 1 % (50 mg/5 gram) gel packet Apply 5 g topically daily. traZODone (DESYREL) 50 mg tabletIndications:Gonadotr opin deficiency (HCC-CMS),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HCC-CMS),Panhypopituitari sm (HCC-CMS),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HCC-CMS),Secondary hypothyroidism Take 100 mg by mouth daily. zonisamide (ZONEGRAN) 100 mg capsule Take 1 Cap by mouth daily 90 Each 3 12/27/2014 documented as of this encounter Discharge Disposition Disposition Code Departure Means Destination Home or Self Care documented in this encounter Plan of Treatment Upcoming Encounters Date Type Department Care Team (Late st Contact Info) Description 09/09/2024 10:20 EST Office Visit [facility] Endocrinology - [address] [address] Day Littlejohn MD PhD 62 [facility] [address] [place] [address] documented as of this encounter Procedures Procedure Name Priority Date/Time Associated Diagnosis Comments CT OUTSIDE IMAGES HEAD Routine 10/03/2023 15:31 EDT documented in this encounter Results * CT OUTSIDE IMAGES HEAD (10/03/2023 15:31 EDT) Narrative 10/03/2023 15:31 EDT This is a non-reportable exam. External Imaging IMG OTHER IMAGING OR DERABLES documented in this encounter Visit Diagnoses Not on filedocumented in this encounter Care Teams Patient Relations Liaison Relationship Specialty Start Date End Date Ren Vaz MD [address] [place] [address] PCP - General 09/30/18 documented as of this encounter
--- OUTSIDE RECORDS SUMMARY | 2024-03-05 15:43 | XMS_ITS | Encounter Summary ---
Author Organization [facility] Address [address] [place] [address] Care Team Providers Care Community Specialist Name Role Phone Ren Vaz MD Primary Care Provider [phone] Reason for Visit * Reason Onset Date Comments Referral Request 01/04/2020 referral for Bl ood draw in home Encounter Details Date Type Department Care Team (Late st Contact Info) Description 01/04/2020 Telephone [facility] Endocrinology - [facility] [address] [place] [address] Wilder Zaidi, 62 [facility] [address] [place] [address] Referral Request (referral for Blood draw in home ) Social History Tobacco Use Types Packs/Day [...] Telephone Encounter - Lesley Jeffrey RN - 01/04/2020 1139 EDT Lab orders from 11/26/2019 electronically faxed to : [facility] Fax number : [phone] LESLEY COURTNEY RN 01/04/2020 11:42 * Telephone Encounter - Robin Baird - 01/04/2020 0959 EDT Please send referral to [facility] for patient to have a blood draw. His Guardian is requesting he doesn't go into the hospital. He needs blood drawn by end of January. . documented in this encounter Plan of Treatment Upcoming Encounters Date Type Department Care Team (Late st Contact Info) Description 09/09/2024 10:20 EST Office Visit [facility] Endocrinology - [address] [id number] Day Littlejohn MD PhD [address] [place] [address] [address] [place] [phone] documented as of this encounter Visit Diagnoses Not on filedocumented in this encounter Care Teams Community Specialist Relationship Specialty Start Date End Date Ren Vaz MD [facility] [place] [address] PCP - General 09/30/18 documented as of this encounter
--- OUTSIDE RECORDS SUMMARY | 2024-03-05 15:43 | XMS_ITS | Clinical Summary ---
Author Organization [facility] Address [address] [place] [address] Care Team Providers Care Inspector Plating Name Role Phone Ren Vaz MD Primary Care Provider [phone] Allergies Active Allergy Reactions Criticality Noted Date Comments Gemfibrozil Unknown Reaction 08/24/2010 Medications Medication Sig Dispensed Refills Start Date End Date Status Cholecalciferol, Vitamin D3, 400 unit Tab Take 2.5 Tablets by mouth daily. 08/24/2010 Active quetiapine (SEROQUEL) 300 mg tablet Take 200 mg by mouth at bedtime. 08/24/2010 Active Melatonin 3 mg Tab Take 10 mg by mouth at bedtime. 08/24/2010 Active acetaminophen (TYLENOL) 325 mg tablet Take 200 mg by mouth every 4 hours as needed for Pain or Fever. Reported on 10/31/2016 02/25/2011 Active Additional Information Patient not taking.Reported on 03/06/2023 QUEtiapine (SEROQUEL) 50 mg tabletIndications:Sonu adotropin deficiency (HCC-CMS),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HCC-CMS),Panhypopitu itarism (HCC-CMS),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HCC-CMS),Secondary hypothyroidism Take 25 mg by mouth daily. Takes at 25 mg at noon Active traZODone (DESYREL) 50 mg tabletIndications:Sonu adotropin deficiency (HCC-CMS),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HCC-CMS),Panhypopitu itarism (HCC-CMS),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HCC-CMS),Secondary hypothyroidism Take 100 mg by mouth daily. Active desmopressin (DDAVP) 0.1 mg tablet Take 0.5 Tabs by mouth 3 times daily. Take 1/2 tab three times daily 45 Tab 3 07/29/2013 Active Additional Information Patient taking differently: 0.1 mgoral,(No frequency reported), 0.1 mg in the am, 0.15 mg PM (1.5 tabs), Reported on 09/04/2023 HYDROCODONE/ACETAMINO PHEN (VICODIN ORAL) Take 5 mg by mouth. Active testosterone (ANDROGEL) 1 % (50 mg/5 gram) gel packet Apply 5 g topically daily. Active hydrocortisone (CORTEF) 10 mg tablet Take 1 Tab by mouth 2 times daily Takes @@ 1200 & 1700 180 Tab 3 11/08/2014 Active Additional Information Patient taking differently:10 mg oral 2 TIMES DAILY,TAke 20 mg AM and 10 mg at mid-afternoon, Reported on 09/04/2023 zonisamide (ZONEGRAN) 100 mg capsule Take 1 Cap by mouth daily 90 Each 3 12/27/2014 Active Additional Information Patient taking differently: 400 mgoral DAILY, Reported on 03/06/2023 testosterone (ANDROGEL) 20.25 mg/1.25 gram (1.62 %) transdermal gel pumpIndications:Panhy popituitarism (HCC-CMS) Apply 3 pump actuations topically daily for 90 days Daily Max: 60.75 mg 337.5 g 0 03/15/2015 Active Additional Information Patient not taking.Reported on 10/31/2016 omeprazole (PRILOSEC) 20 mg capsule Take 2 Capsules by mouth daily. Active metoprolol (LOPRESSOR) 25 mg tablet Take 25 mg by mouth daily. Active ferrous gluconate (FERGON) 324 mg (38 mg iron) tablet Take 1 Tablet by mouth daily with breakfast. Active docusate sodium (STOOL SOFTENER) 100 mg capsule Take 1 Capsule by mouth daily. Active atorvastatin (LIPITOR) 40 mg tablet Take 1 Tablet by mouth daily. Active aspirin (ASPIRIN EC) 81 mg EC tablet Take 1 Tablet by mouth daily. Active calcium carbonate (TUMS) 200 mg calcium (500 mg) tablet,chewable Take 1 Tablet by mouth daily. Active cyclobenzaprine (FLEXERIL) 10 mg tablet Take 10 mg by mouth 3 times daily. Active magnesium gluconate (MAG-G ORAL) Take 250 mg by mouth 2 times daily. Active sennosides (SENEXON ORAL) Take by mouth. Active baclofen (LIORESAL) 20 mg tablet Take 1 Tablet by mouth 4 times daily. Active Prazosin (MINIPRESS) 2 mg capsule 03/03/2023 Active quetiapine (SEROQUEL XR) 150 mg ER 24 hr tablet 03/04/2023 Active pyridoxine, vitamin B6, (VITAMIN B6) 50 mg tablet Take 1 Tablet by mouth daily. Active cetirizine (ZYRTEC) 10 mg tablet Take 1 Tablet by mouth daily. Active montelukast (SINGULAIR) 10 mg tablet 01/27/2023 Active levothyroxine (SYNTHROID) 200 mcg tablet Take 1 Tablet by mouth daily. Active ramelteon (ROZEREM) 8 mg tablet Take 1 Tablet by mouth daily. Active alendronate (FOSAMAX) 70 mg tablet Take 1 Tablet by mouth every 7 days. Take with a full glass of water on empty stomach; for the next 30 minutes, nothing by mouth and do not lie down. 12 Tablet 3 03/04/2024 Active Active Problems Patient Care Coordination No te Formatting of this note migh t be different from the original. Patient has given permission for the [facility] to verbally discuss the following information with Mavis Mane who has the following relationship to the patient: Caregiver: Scheduling/Appt/Billing/Payment Information (does not include clinical information unless specifically indicated with separate option) Medical Information including symptoms, diagnosis, medications, test results and treatment plan (does not include Mental Health unless specifically indicated with separate option) Permission remains in effect until the patient elects to revoke it. Problem Noted Date Diagnosed Date Secondary adrenal insufficiency ([facility]-CMS) 2018 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) 06/14/2010 Secondary hypothyroidism 06/14/2010 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) from Last 3 Months Medical History Medical History Date Comments Environmental allergies Social History Tobacco Use Types Packs/Day Years Used Date Smoking Tobacco: Never Smokeless Tobacco: Never Tobacco Cessation:Counseling Given: Not Answered Alcohol Use Standard Drinks/Week Comments No 0 (1 standard drink = 0.6 oz pur e alcohol) Interpersonal Safety Answer Date Record ed Physically Hurt Never 02/06/2020 Verbally Threaten Not on file 02/06/2020 Sex and Gender Information Value Date Recorded Sex Assigned at Not on file Gender Identity Not on file Sexual Orientation Not on file Obstetrics History Last Filed Vital Signs Vital Sign Reading Time Taken Comments Blood Pressure 126/76 03/04/2024 1111 EDT Pulse 82 03/04/2024 1111 EDT Temperature 33.8 ??C (92.8 ??F) 02/25/2011 1 635 EDT re-taken and got the same result; RN notified- Lindsey Respiratory Rate 12 12/27/2014 1100 EDT Oxygen Saturation 100% 02/25/2011 163 5 EDT Inhaled Oxygen Concentration - - Weight 93.6 kg (206 lb 4.8 oz) 03/04/2024 1111 EDT Height 170.2 cm (5' 7.01) 03/04/2024 1 111 EDT Body Mass Index 32.3 03/04/2024 1111 EDT Plan of Treatment Upcoming Encounters Date Type Department Care Team (Late st Contact Info) Description 09/09/2024 10:20 EST Office Visit [facility] Endocrinology - [facility] [address] [place] [address] Day Littlejohn MD PhD [address] [facility] [address] [place] [address] Health Maintenance Due Date Last Done Comments Hepatitis B Vaccine (1 of 3 - 19+ 3-dose series) 2009 Hepatitis C Screen Completed 07/30/2019, 02/26/2005 COVID-19 Vaccine Completed 04/21/2023, 02/26/2022 Medical Devices Implanted Type Area Transport Rn Device Identifier Shelf Expiration Date Model / Serial / Lot Clip Implant On 10/12/04 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 Oral Hayes Gr aupman Involved. These Are Mri Safe To 3t Per Safety Book. Ecw Clip Implant Description:On 10/12/04 Pt had a Yasargil FE aneurysm clip placed during tumor resection surgery. Oral Hayes Graupman involved. These are conditional to 3T per safety book. ECW Updated Conditions. Yasargil Fenestrated Aneurysm Clip MAX Spatial Gradient Field of 1500 Gauss/cm or less and WB LIV of 4 W/Kg (Normal operating mode for GE) MAP 09/13/19 Procedures Procedure Name Priority Date/Time Associated Diagnosis Comments HEPATITIS C AB W REFLEX TO HCV RNA BY PCR Routine 07/30/2019 11:59 EST from Last 3 Months or Most Recently Relevant to Health Maintenance Results * HEPATITIS C AB W REFLEX TO HCV RNA BY PCR (07/30/2019 11:59 EST) Hep C Antibody Negative Negative 08/02/2019 11:26 EST [facility] Blood VENOUS BLOOD / Unknown 07/30/2019 11:59 EST 07/30/2019 16:45 EST Provider Unknown CHEMISTRY & BLOOD GA S ORDERABLES [facility] [address] [place] [address] from Last 3 Months or Most Recently Relevant to Health Maintenance Advance Directives For more information, please contact: [phone] * Full Code (Latest Code Status on File) Date Activated Date Inactivated Comments 02/24/2011 22:28 02/25/2011 20:41 Care Teams Inspector Plating Relationship Specialty Start Date End Date Ren Vaz MD [place] [address] PCP - General 09/30/18
--- OUTSIDE RECORDS SUMMARY | 2024-03-05 15:43 | XMS_ITS | Encounter Summary ---
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) Social History Tobacco Use Types Packs/Day Years [...] on file documented as of this encounter Last Filed Vital Signs Vital Sign Reading Time Taken Comments Blood Pressure 126/76 03/04/2024 1111 EDT Pulse 82 03/04/2024 1111 EDT Temperature - - Respiratory Rate - - Oxygen Saturation - - Inhaled Oxygen Concentration - - Weight 93.6 kg (206 lb 4.8 oz) 03/04/2024 1111 E DT Height 170.2 cm (5' 7.01) 03/04/2024 1111 EDT Body Mass Index 32.3 03/04/2024 1111 EDT documented in this encounter Functional Status Functional Status Response [...] Yes 10/01/2018 documented as of this encounter Ordered Prescriptions Prescription Sig Dispensed Refills Start Date End Da te alendronate (FOSAMAX) 70 mg tablet Take 1 Tablet by mouth every 7 days. Take with a full glass of water on empty stomach; for the next 30 minutes, nothing by mouth and do not lie down. 12 Tablet 3 03/04/2024 documented in this encounter Progress Notes * Day Littlejohn MD PhD - 03/04/2024 1100 EDT 03/04/2024 FOLLOW-UP PATIENT: Miguel Angel Burgos Jr. 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 is a very pleasant 33 y.o. male who presents with multiple pituitary deficiencies and central DI. He is here today with his aide for evaluation of pituitary treatment. 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 No n/v. Says energy good (aide tells me he works around alot--often gets up at night to urinate but then does not have to. Urine is often yellow, sometimes looks concentrated in AM and a bit clear later in day. He is not on Testosterone replacement due to that led to hostile and aggressive mood changes. Dexascan done Z score -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 PAST HISTORY Past Medical History: Diagnosis Date Environmental allergies No past surgical history on file. No family history on file. Social History Tobacco Use Smoking status: Never Smokeless tobacco: Never Vaping Use Vaping status: Never Used Substance Use Topics Alcohol use: No Drug use: No MEDICATIONS Current Outpatient Medications Medication Sig Dispense Refill acetaminophen (TYLENOL) 325 mg tablet Take 200 mg by mouth every 4 hours as needed for Pain or Fever. Reported on 10/31/2016 (Patient not taking: Reported on 03/06/2023) alendronate (FOSAMAX) 70 mg tablet Take 1 Tablet by mouth every 7 days. Take with a full glass of water on empty stomach; for the next 30 minutes, nothing by mouth and do not lie down. 12 Tablet 3 aspirin (ASPIRIN EC) 81 mg EC tablet [...] Tab Take 2.5 Tablets by mouth daily. cyclobenzaprine (FLEXERIL) 10 mg tablet Take 10 mg by mouth 3 times daily. (Patient not taking: Reported on 03/06/2023) desmopressin (DDAVP) 0.1 mg tablet Take 0.5 Tabs by mouth 3 times daily. Take 1/2 tab three times daily (Patient taking differently: Take 1 Tablet by mouth. 0.1 mg in the am, 0.15 mg PM (1.5 tabs)) 45 Tab 3 docusate sodium (STOOL SOFTENER) 100 mg capsule Take 1 Capsule by mouth daily. ferrous gluconate (FERGON) 324 mg (38 mg iron) tablet Take 1 Tablet by mouth daily with breakfast. HYDROCODONE/ACETAMINOPHEN (VICODIN ORAL) Take 5 mg by mouth. (Patient not taking: Reported on 09/04/2023) hydrocortisone (CORTEF) 10 mg tablet Take 1 Tab by mouth 2 times daily Takes @@ 1200 & 1700 (Patient taking differently: Take 1 Tablet by mouth 2 times daily. TAke 20 mg AM and 10 mg at mid-afternoon) 180 Tab 3 levothyroxine (SYNTHROID) 200 mcg tablet Take 1 Tablet by mouth daily. magnesium gluconate (MAG-G ORAL) Take 250 mg by mouth 2 times daily. Melatonin 3 mg Tab Take 10 mg by mouth at bedtime. metoprolol (LOPRESSOR) 25 mg tablet Take 25 mg by mouth daily. (Patient not taking: Reported on 03/06/2023) montelukast (SINGULAIR) 10 mg tablet omeprazole (PRILOSEC) 20 mg capsule Take 2 Capsules by mouth daily. Prazosin (MINIPRESS) 2 mg capsule pyridoxine, vitamin B6, (VITAMIN B6) 50 mg tablet Take 1 Tablet by mouth daily. quetiapine (SEROQUEL XR) 150 mg ER 24 hr tablet quetiapine (SEROQUEL) 300 mg tablet Take 200 mg by mouth at bedtime. (Patient not taking: Reported on 03/06/2023) QUEtiapine (SEROQUEL) 50 mg tablet Take 25 mg by mouth daily. Takes at 25 mg at noon (Patient not taking: Reported on 03/06/2023) ramelteon (ROZEREM) 8 mg tablet Take 1 Tablet by mouth daily. sennosides (SENEXON ORAL) Take by mouth. (Patient not taking: Reported on 03/06/2023) testosterone (ANDROGEL) 1 % (50 mg/5 gram) gel packet Apply 5 g topically daily. (Patient not taking: Reported on 03/06/2023) testosterone (ANDROGEL) 20.25 mg/1.25 gram (1.62 %) transdermal gel pump Apply 3 pump actuations topically daily for 90 days Daily Max: 60.75 mg (Patient not taking: Reported on 10/31/2016) 337.5 g 0 traZODone (DESYREL) 50 mg tablet Take 100 mg by mouth daily. (Patient not taking: Reported on 03/06/2023) zonisamide (ZONEGRAN) 100 mg capsule Take 1 Cap by mouth daily (Patient taking differently: Take 4 Capsules by mouth daily.) 90 Each 3 No current facility-administered medications for this visit. ALLERGIES Allergies Allergen Reactions Lopid [Gemfibrozil] Unknown Reaction REVIEW OF SYSTEMS ROS . Denies dysphagia, hoarseness, no diarrhea or constip,no muscle cramping. Appetite and weight are stable. No chest pain, SOB or palpitations. Wt down 8-14 lbs if wts are accurate. VITALS Vitals: 03/04/24 1111 BP: 126/76 Pulse: 82 Weight: 93.6 kg (206 lb 4.8 oz) Height: 170.2 cm (67.01) PHYSICAL EXAM Constitutional: Appearance: He is obese. Eyes: General: No scleral icterus. Neck: Comments: No palpable thyromegaly Cardiovascular: Rate and Rhythm: Normal rate and regular rhythm. Pulmonary: Effort: Pulmonary effort is normal. Breath sounds: No wheezing or rales. Abdominal: Palpations: Abdomen is soft. Comments: No rash or striae Musculoskeletal: General: Normal range of motion. Cervical back: Normal range of motion. Right lower leg: No edema. Left lower leg: No edema. Skin: General: Skin is warm and dry. Findings: No rash. Neurological: Mental Status: He is alert. Mental status is at baseline. Motor: No weakness. Psychiatric: Behavior: Behavior normal. ASSESSMENT Miguel Angel is on multiple medications to replace pituitary hormones. He is cooperative, well-dressed in clinic and behavior is appropriate. Voice is gravelly, but understandable. Able to move all extremities and walk. Will order labs to check lytes and thyroid levels understanding that the TSH is not accurate for dose adjustments in pituitary caused disease. ICD-10-CM ICD-9-CM 1. Hypopituitarism involving multiple pituitary deficiencies ([facility]) E23.0 253.2 Since he is Hypogonadal, he has osteopenia at the spine and due to chronic steroids will start bonemedication that he can take for a few yrs, then stop depending on effect and restart per routine. It is controversial how much on replacement steroids affect the bone, and Hydrocortgisone is more bone friendly than Prednisone. But given that he has a seizure disorder that increases bone loss and risk for falls. PLAN Continue for now on Levothyroxine 200 mcg/d. Goal is Free thyroxine index mid-range. Continue on Hydrocortisone 20 mg AM and 10 mg PM (use of seizure medication may increase metabolismof drug replacement leading for need for higher dose of this and thyroid per wt). Doubles x 3 days for febrile illness or procedures. Continue the DDAVP 100 mcg-1 AM and 1.5 tabs bedtime. Start Alendronate for bone 70 mg weekly. If unable to swallow or throat pain (aide says he has no trouble with pills) he can change to injections of bisphosphonates IV 1-2x/yr. Would need follow up dexascan in 2-3 yrs. Day Littlejohn MD PhD 03/04/2024 14:40 documented in this encounter Plan of Treatment Upcoming Encounters Date Type Department Care Team (Late st Contact Info) Description 09/09/2024 10:20 EST Office Visit [facility] Endocrinology - [address] [address] Day Littlejohn MD PhD [address] [facility] [address] [place] [phone] Scheduled Orders Name Type Priority Associated Diagnoses Orde r Schedule BASIC METABOLIC PANEL (BMP) Lab Routine Hypopituitarism involving multiple pituitary deficiencies (HCC-CMS) Expected: 03/04/2024 (Approximate), Expires: 03/04/2025 FREE THYROXINE INDEX (FTI), S Lab Routine Hypopituitarism involving multiple pituitary deficiencies (HCC-CMS) Expected: 03/04/2024 (Approximate), Expires: 03/04/2025 documented as of this encounter Visit Diagnoses Diagnosis 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 Medication Sig Dispensed Refills Start Date End Date ramelteon (ROZEREM) 8 mg tablet Take 1 Tablet by mouth daily. added in this encounter Care Teams Ui Ux Developer Relationship Specialty Start Date End Date Ren Vaz MD [address] [place] [address] [place] [address] PCP - General 09/30/18 documented as of this encounter
--- OUTSIDE RECORDS SUMMARY | 2024-03-05 15:43 | XMS_ITS | Encounter Summary ---
Author Organization [facility] Address [address] [place] [address] Care Team Providers Care Block Chopper Hand Name Role Phone Ren Vaz MD Primary Care Provider [phone] Reason for Visit * Reason Onset Date Comments Follow-up 10/20/2023 Paperwork request 10/20/2023 Encounter Details Date Type Department Care Team (Late st Contact Info) Description 10/20/2023 Telephone [facility] Endocrinology - [address] [address] Day Littlejohn MD PhD [address] [place] [address] [place] [phone] Follow-up; Paperwork request Social History Tobacco Use Types Packs/Day Years [...] encounter Miscellaneous Notes * Telephone Encounter - Mavis Franco RN - 10/21/2023 1257 EDT Printed and faxed MICKEY notes to [facility] Routing to Dr. Littlejohn re: f/u about DXA and head CT scan results. MAVIS FRANCO RN 10/21/2023 13:52 * Telephone Encounter - Laura Freeman - 10/20/2023 1121 EDT Endocrinology Incoming Call Reason for call: follow up and records Labs Request/Results If known, which test are you inquiring about? Head scan and bone density Where was your test performed (which lab)? [facility] What date was the test performed? september Next Appointment: 03/04/2024 Last Office Visit: 09/04/2023 Day Littlejohn MD PhD Last Telehealth Encounter: Visit date not found Send as Routine Priority to [facility] Endocrine Nurse Hayden Ladonna calling, asking for follow up after having the head CT and DEXA done. She is also requesting a signed copy of the office visit dated 09/04/23 for the pts records at the facility documented in this encounter Plan of Treatment Upcoming Encounters Date Type Department Care Team (Late st Contact Info) Description 09/09/2024 10:20 EST Office Visit [facility] Endocrinology - [facility] [address] [place] [address] Day Littlejohn MD PhD [address] [facility] [address] [place] [address] documented as of this encounter Visit Diagnoses Not on filedocumented in this encounter Care Teams Block Chopper Hand Relationship Specialty Start Date End Date Ren Vaz MD Kerry [facility] [place] [address] PCP - General 09/30/18 documented as of this encounter
--- OUTSIDE RECORDS SUMMARY | 2024-03-05 15:43 | XMS_ITS | Encounter Summary ---
Author Organization [facility] Address [address] [place] [address] Care Team Providers Care Bale Breaker Operator Name Role Phone Ren Vaz MD Primary Care Provider [phone] Reason for Referral * Radiology Services (Routine/Next Available) - Specialty Report Received Specialty Diagnoses / Procedures Referred By Duyen bui Referred To Contact Diagnoses History of pituitary surgery Craniopharyngioma (HCC-CMS) Procedures CT HEAD WO CONTRAST Day Littlejohn MD PhD [address] [place] [phone] Referral ID Status Reason Start Date Expiration Date V isits Requested Visits Authorized [id number] Specialty Report Received 09/04/2023 1 1 * Radiology Services (Routine/Next Available) - Specialty Report Received Specialty Diagnoses / Procedures Referred By Duyen bui Referred To Contact Diagnoses 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 Procedures DXA BONE DENSITY Day Littlejohn MD PhD [address] [place] [address] Referral ID Status Reason Start Date Expiration Date V isits Requested Visits Authorized [id number] Specialty Report Received 1 1 Reason for Visit * Reason Comments Other Panhypopituitarism Encounter Details Date Type Department Care Team (Latest Contact Info) Description 09/04/2023 10:00 EST Office Visit [facility] Endocrinology - [facility] [address] [place] [address] Day Littlejohn MD PhD [address] [facility] [address] [place] [phone] 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); Current chronic use of systemic steroids; History of pituitary surgery; Craniopharyngioma ([facility]-CMS) Social History Tobacco Use Types Packs/Day Years [...] Sign Reading Time Taken Comments Blood Pressure 131/60 09/04/2023 1009 EST Pulse 81 09/04/2023 1009 EST Temperature - - Respiratory Rate - - Oxygen Saturation - - Inhaled Oxygen Concentration - - Weight 100 kg (220 lb 8 oz) 09/04/2023 1009 EST Height 170.2 cm (5' 7.01) 09/04/2023 1009 EST Body Mass Index 34.53 09/04/2023 1009 EST documented in this encounter Functional Status Functional [...] Yes 10/01/2018 documented as of this encounter Patient Instructions * Patient Instructions* Day Littlejohn MD PhD - 09/04/2023 10:00 EST The last labs done in Apr, 2023- Showed no testosterone (very low levels) --lost from his tumor Free T4 was good at 1.12 on the thyroid medication. Na was good at 140 So he can continue the Levothyroxine at 200 mcg/d. Continue the DDAVP 100 mg-1 in AM and 1.5 tabs at bedtime Hydrocortisone 20 AM and [address] hd-at [facility]) Order a bone dexascan to see if the low testosterone increases his risk for bone fracture and if medication is needed. documented in this encounter Progress Notes * Day Littlejohn MD PhD - 09/04/2023 1000 EST 09/04/2023 FOLLOW-UP PATIENT: Miguel Angel Burgos Jr. 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 is a very pleasant 33 y.o. male who presents with multiple pituitary deficiencies given a hx of craniopharyngioma. 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 He lives in a shelter, usually sees Dr. Zaidi. Central Diabetes Insipidus-On DDAVP 100 mcg-1 tab AM and 1.5 tabs PM. Thyroid-Levothyroxine 2100 mcg/d Adrenal-Hydrocortisone 10 mg-2 AM and 1 PM (30 mg/d) He is not on testosterone. There was concern about hostile/aggressive behavior. Miguel Angel is able to speak but often grunts/yells word salad. He says no when asked each question on ROS singly. His help staff deny any problems with appetite, n/v, diarrhea or constip. Report that he gets up often at night but not to urinate per se, does not sleep thruout night--likes to walk around.Caregivers state that urine often looks clear to slightly yellow-tinged. He is on 3.5 L water/d. HPI Had dexascan 2018 with osteopenia, but had fracture hip in past after seizure. PAST HISTORY Past Medical History: Diagnosis Date Environmental allergies No past surgical history on file. No family history on file. Social History Tobacco Use Smoking status: Never Smokeless tobacco: Never Vaping Use Vaping Use: Never used Substance Use Topics Alcohol use: No Drug use: No MEDICATIONS Current Outpatient Medications Medication Sig Dispense Refill acetaminophen (TYLENOL) 325 mg tablet Take 200 mg by mouth every 4 hours as needed for Pain or Fever. Reported on 10/31/2016 (Patient not taking: Reported on 03/06/2023) aspirin (ASPIRIN EC) 81 mg EC tablet [...] noon (Patient not taking: Reported on 03/06/2023) sennosides (SENEXON ORAL) Take by mouth. (Patient [...] [Gemfibrozil] Unknown Reaction REVIEW OF SYSTEMS ROS VITALS Vitals: 09/04/23 1009 BP: 131/60 Pulse: 81 Weight: 100 kg (220 lb 8 oz) Height: 170.2 cm (67.01) PHYSICAL EXAM Neatly dressed. Constitutional: Appearance: He is obese. Eyes: General: No scleral icterus. Neck: Comments: No palpable thyromegaly Cardiovascular: Rate and Rhythm: Normal rate and regular rhythm. Pulmonary: Effort: Pulmonary effort is normal. Breath sounds: No wheezing or rales. Abdominal: Palpations: Abdomen is soft. Musculoskeletal: General: Normal range of motion. Cervical back: Normal range of motion. Right lower leg: No edema. Left lower leg: No edema. Skin: General: Skin is warm and dry. Findings: No rash. Neurological: Mental Status: He is alert. Mental status is at baseline. Psychiatric: Comments: Sits in chair, attends speaker, offers hand to be shaken. ASSESSMENT: Miguel Angel is on multiple pituitary replacements given a hx of craniopharyngioma and pituitary surgery. He appears well and recent labs show thyroid and Na at goal. While the staff reports urine as clear, maybe slightly yellow-tinged he is not really getting up to void at night and with normal Na would not change dosing that could risk aggravation of seizures if Na is low. PLAN Continue the Levothyroxine 200 mcg/d. Continue the Hydrocortisone at 10 mg 2 AM and 1 pM (30 mg/d). Double for 3 days if febrile illness/stressors. Continue the DDAVP for central DI-100 mcg-1 AM and 1.5 tabs PM. May have to cue to drink water is on 3.5 L/d. Testosterone was stopped due to behavior changes. Will order dexascan as on chronic steroid and fall risk due to vision/gait. Dexascan ordered at [facility] may not have there. LOsat scan showed osteopenia-on Ca/D. Will update and see if worsening. CT ordered--will avoid MRI due to enclosure/noise that may startle him. Day Littlejohn MD PhD 09/04/2023 13:14 documented in this encounter Plan of Treatment Upcoming Encounters Date Type Department Care Team (Late st Contact Info) Description 09/09/2024 10:20 EST Office Visit [facility] Endocrinology - [address] [address] Day Littlejohn MD PhD [address] [place] [address] [place] [phone] Scheduled Orders Name Type Priority Associated Diagnoses Orde r Schedule DXA BONE DENSITY Imaging Routine 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 Expected: 12/03/2023 (Approximate), Expires: 09/03/2025 CT HEAD WO CONTRAST Imaging Routine History of pituitary surgery Craniopharyngioma (HCC-CMS) Expected: 12/03/2023 (Approximate), Expires: 03/04/2025 documented as of this encounter Visit Diagnoses Diagnosis Secondary male hypogonadism- Primary Other testicular hypofunction Current chronic use of systemic steroids History of pituitary surgery Craniopharyngioma (HCC-CMS) Neoplasm of uncertain behavior of pituitary gland and craniopharyngeal duct documented in this encounter Discontinued Medications Medication Sig Discontinue Reason Start Date End Da te levothyroxine (SYNTHROID) 150 mcg tablet TAKE ONE TABLET BY MOUTH EVERY DAY/ Blister pack Error 05/27/2017 09/04/2023 hydrocortisone (CORTEF) 20 mg tablet Take 0.5 Tablets by mouth daily. Takes in noon Error 09/04/2023 documented as of this encounter Historical Medications * This list may reflect changes made after this encounter. Medication Sig Dispensed Refills Start Date End Date levothyroxine (SYNTHROID) 200 mcg tablet Take 1 Tablet by mouth daily. added in this encounter Care Teams Bale Breaker Operator Relationship Specialty Start Date End Date Ren Vaz MD [address] [place] [address] PCP - General 09/30/18 documented as of this encounter
--- OUTSIDE RECORDS SUMMARY | 2024-03-05 15:43 | XMS_ITS | Encounter Summary ---
Author Organization [facility] Address [address] [place] [address] Care Team Providers Care Insurance Job Titles Name Role Phone Ren Vaz MD Primary Care Provider [phone] Encounter Details Date Type Department Care Team (Late st Contact Info) Description 07/30/2019 Lab Requisition [facility] Pathology & Laboratory Medicine - [facility] [address] [place] [address] Unknown, Provider, Social History Tobacco Use Types Packs/Day Years [...] Yes 10/01/2018 documented as of this encounter Plan of Treatment Upcoming Encounters Date Type Department Care Team (Late st Contact Info) Description 09/09/2024 10:20 EST Office Visit [facility] Endocrinology - [place] [address] [place], [place] [id number] Day Littlejohn MD PhD 62 [facility] [address] [place] [address] documented as of this encounter Procedures Procedure Name Priority Date/Time Associated Diagnosis Comments HEPATITIS C AB W REFLEX TO HCV RNA BY PCR Routine 07/30/2019 11:59 EST HEPATITIS B SURFACE ANTIGEN Routine 07/30/2019 11:59 EST documented in this encounter Results * HEPATITIS B SURFACE ANTIGEN (07/30/2019 11:59 EST) Hep B Surface Ag Negative Negative 08/02/2019 9:49 EST [facility] Blood VENOUS BLOOD / Unknown 07/30/2019 11:59 EST 07/30/2019 16:46 EST Provider Unknown CHEMISTRY & BLOOD GA S ORDERABLES Performing Organization Address City/[facility]/ZIP Co de Phone Number [facility] [address] [place] [address] * HEPATITIS C AB W REFLEX TO HCV RNA BY PCR (07/30/2019 11:59 EST) Hep C Antibody Negative Negative 08/02/2019 11:26 EST [facility] Blood VENOUS BLOOD / Unknown 07/30/2019 11:59 EST 07/30/2019 16:45 EST Provider Unknown CHEMISTRY & BLOOD GA S ORDERABLES [facility] [address] [place] [address] documented in this encounter Visit Diagnoses Not on filedocumented in this encounter Care Teams Insurance Job Titles Relationship Specialty Start Date End Date Ren [place] [address] PCP - General 09/30/18 documented as of this encounter
--- OUTSIDE RECORDS SUMMARY | 2024-03-05 15:43 | XMS_ITS | Encounter Summary ---
Author Organization [facility] Address [address] [place] [address] Care Team Providers Care Activities Director Scouting Name Role Phone Ren Vaz MD Primary Care Provider [phone] Encounter Details Date Type Department Care Team (Late st Contact Info) Description 07/30/2019 Lab Requisition [facility] [place] [facility] Pathology & Laboratory Medicine - [facility] [address] [place] [address] Unknown, Provider, Social History Tobacco Use Types [...] Info) Description 09/09/2024 10:20 EST Office Visit [facility] [place] [facility] Endocrinology - [place] [address] [place], [place] [id number] Day Littlejohn MD PhD [address] [facility] [address] [place] [address] documented as of this encounter Procedures Procedure Name Priority Date/Time Associated Diagnosis Comments CALCIUM, IONIZED Routine 07/30/2019 11:5 9 EST documented in this encounter Results * CALCIUM, IONIZED (07/30/2019 11:59 EST) Calcium, Ionized 1.12 1.12 - 1.32 mmol/L 07/30/2019 16:51 EST [facility] Comment:Testing performed on heparinized plasma. Results may be biased 5% lower than that of whole blood. Blood VENOUS BLOOD / Unknown 07/30/2019 11:59 EST 07/30/2019 16:41 EST Provider Unknown CHEMISTRY & BLOOD GA S ORDERABLES [facility] [address] [place] [address] documented in this encounter Visit Diagnoses Not on filedocumented in this encounter Care Teams Activities Director Scouting Relationship Specialty Start Date End Date Ren Vaz MD [address] [place] [address] PCP - General 09/30/18 documented as of this encounter
--- OUTSIDE RECORDS SUMMARY | 2024-03-05 15:43 | XMS_ITS | Encounter Summary ---
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) Procedures LAB URINE CHEMICAL (DIP) - DOES NOT REFLEX Jono Sanchez MD [address] [place] [address] Referral ID Status Reason Start Date Expiration Date V isits Requested Visits Authorized [id number] New Request 03/06/2023 1 1 * Laboratory Services (Routine/Next Available) - New Request Specialty Diagnoses / Procedures Referred By Duyen bui Referred To Contact Diagnoses 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HCC-CMS) Secondary adrenal insufficiency (HCC-CMS) 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) Procedures TESTOSTERONE, TOTAL AND FREE Jono Sanchez MD [address] [place] [address] Referral ID Status Reason Start Date Expiration Date V isits Requested Visits Authorized [id number] New Request 03/06/2023 1 1 * Laboratory Services (Routine/Next Available) - New Request Specialty Diagnoses / Procedures Referred By Duyen bui Referred To Contact Diagnoses 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HCC-CMS) Secondary adrenal insufficiency (HCC-CMS) 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) Procedures T4 [facility] Jono Sanchez MD [address] [place] [phone] Referral ID Status Reason Start Date Expiration Date V isits Requested Visits Authorized [id number] New Request 03/06/2023 1 1 Reason for Visit * Reason Comments Other Secondary adrenal in sufficiency * Referral (Routine) - Receiving Office to Obtain Authorization Specialty Diagnoses / Procedures Referred By Duyen bui Referred To Contact Endocrinology Diagnoses 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HCC-CMS) Ren Vaz MD [facility] [place] [address] [facility] [address] [place] [id number] Referral ID Status Reason Start Date Expiration Date Visits Requested Visits Authorized [id number] Receiving Office to Obtain Authorization 1 1 Encounter Details Date Type Department Care Team (Late st Contact Info) Description 03/06/2023 15:00 EDT Office Visit [facility] Endocrinology - [address] [address] Jono Sanchez MD [address] [place] [phone] 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HCC-CMS) (Primary Dx); Secondary adrenal insufficiency (HCC-CMS); 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HCC-CMS); Gonadotropin deficiency ([facility]) Social History Tobacco Use Types Packs/Day Years [...] Sign Reading Time Taken Comments Blood Pressure 114/82 03/06/2023 1504 EDT Pulse 59 03/06/2023 1504 EDT Temperature - - Respiratory Rate - - Oxygen Saturation - - Inhaled Oxygen Concentration - - Weight 97.1 kg (214 lb) 03/06/2023 1504 EDT Height 170.2 cm (5' 7.01) 03/06/2023 1504 EDT Body Mass Index 33.51 03/06/2023 1504 EDT documented in this encounter Functional Status [...] Yes 10/01/2018 documented as of this encounter Progress Notes * Jono Sanchez MD - 03/06/2023 1500 EDT Endocrine ff up CC: Mr. Miguel Angel Kim Aubrey Nelson. is a 32 y.o. male, who was referred to endocrinology for ff up of panhypopituitarism HPI: The pt is 32 yo male with hx of: panhypopituitarism, central diabetes insipidus, status post resection of craniopharyngioma and subsequent complications in 2004, Blindness bilateral , Hx of Trichotillomani, chronic Urticaria, Seizure disorder Last seen on 11/26/2019 Since the last visit Pt is transferred on november 2020 to a different halfway. No hospitalization No new med Current med Levothyroxine 200 mcg 1 tab po daily Hydrocortisone 20mg am and 10 mg pm Off testosterone for a quite a whiel DDAvp 0.1 mg : 1 tab am and 1.5 tab pm Skipping meds: no Ros: No headache Appetite: good No nausea No vomiting Energy: awesome Weight stalbe Bm: Varies Past Medical History/Problem List: Patient Active Problem List Diagnosis ??? 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HCC-CMS) ??? 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HCC-CMS) ??? Craniopharyngioma (HCC-CMS) ??? Gonadotropin deficiency (HCC-CMS) ??? Secondary hypothyroidism ??? 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HCC-CMS) ??? Secondary adrenal insufficiency (HCC-CMS) Past Sugical History: No past surgical history on file. Family History: No family history on file. Social History: Social History Tobacco Use ??? Smoking status: Never ??? Smokeless tobacco: Never Substance Use Topics ??? Alcohol use: No ??? Drug use: No Medications: Current Outpatient Medications on File Prior to Visit Medication Sig Dispense Refill ??? acetaminophen (TYLENOL) 325 mg tablet Take 200 mg by mouth every 4 hours as needed for Pain or Fever. Reported on 10/31/2016 (Patient not taking: Reported on 03/06/2023) ??? aspirin (ASPIRIN EC) 81 mg EC tablet Take 1 Tablet by mouth daily. ??? atorvastatin (LIPITOR) 40 mg tablet Take 1 Tablet by mouth daily. ??? baclofen (LIORESAL) 20 mg tablet Take 1 Tablet by mouth 4 times daily. ??? calcium carbonate (TUMS) 200 mg calcium (500 mg) tablet,chewable Take 1 Tablet by mouth daily. ??? cetirizine (ZYRTEC) 10 mg tablet Take 1 Tablet by mouth daily. ??? Cholecalciferol, Vitamin D3, 400 unit Tab Take 2.5 Tablets by mouth daily. ??? cyclobenzaprine (FLEXERIL) 10 mg tablet Take 10 mg by mouth 3 times daily. (Patient not taking:Reported on 03/06/2023) ??? desmopressin (DDAVP) 0.1 mg tablet Take 0.5 Tabs by mouth 3 times daily. Take 1/2 tab three times daily (Patient taking differently: Take 0.5 Tablets by mouth. 0.1 mg in the am, 0.05 mg in the evening) 45 Tab 3 ??? docusate sodium (STOOL SOFTENER) 100 mg capsule Take 1 Capsule by mouth daily. ??? ferrous gluconate (FERGON) 324 mg (38 mg iron) tablet Take 1 Tablet by mouth daily with breakfast. ??? HYDROCODONE/ACETAMINOPHEN (VICODIN ORAL) Take 5 mg by mouth. (Patient not taking: Reported on 03/06/2023) ? ? hydrocortisone (CORTEF) 10 mg tablet Take 1 Tab by mouth 2 times daily Takes @@ 1200 & 1700(Patient not taking: Reported on 03/06/2023) 180 Tab 3 ??? hydrocortisone (CORTEF) 20 mg tablet Take 0.5 Tablets by mouth daily. Takes in noon ??? levothyroxine (SYNTHROID) 150 mcg tablet TAKE ONE TABLET BY MOUTH EVERY DAY/ Blister pack (Patient taking differently: Take 200 mcg by mouth daily. TAKE ONE TABLET BY MOUTH EVERY DAY/ Blister pack) 90 Tab 3 ??? magnesium gluconate (MAG-G ORAL) Take 250 mg by mouth 2 times daily. ??? Melatonin 3 mg Tab Take 10 mg by mouth at bedtime. ??? metoprolol (LOPRESSOR) 25 mg tablet Take 25 mg by mouth daily. (Patient not taking: Reported on03/06/2023) ??? montelukast (SINGULAIR) 10 mg tablet ??? omeprazole (PRILOSEC) 20 mg capsule Take 2 Capsules by mouth daily. ??? Prazosin (MINIPRESS) 2 mg capsule ??? pyridoxine, vitamin B6, (VITAMIN B6) 50 mg tablet Take 1 Tablet by mouth daily. ??? quetiapine (SEROQUEL XR) 150 mg ER 24 hr tablet ??? quetiapine (SEROQUEL) 300 mg tablet Take 200 mg by mouth at bedtime. (Patient not taking: Reported on 03/06/2023) ??? QUEtiapine (SEROQUEL) 50 mg tablet Take 25 mg by mouth daily. Takes at 25 mg at noon (Patient not taking: Reported on 03/06/2023) ??? sennosides (SENEXON ORAL) Take by mouth. (Patient not taking: Reported on 03/06/2023) ??? testosterone (ANDROGEL) 1 % (50 mg/5 gram) gel packet Apply 5 g topically daily. (Patient not taking: Reported on 03/06/2023) ??? testosterone (ANDROGEL) 20.25 mg/1.25 gram (1.62 %) transdermal gel pump Apply 3 pump actuations topically daily for 90 days Daily Max: 60.75 mg (Patient not taking: Reported on 10/31/2016) 337.5 g 0 ??? traZODone (DESYREL) 50 mg tablet Take 100 mg by mouth daily. (Patient not taking: Reported on 03/06/2023) ??? zonisamide (ZONEGRAN) 100 mg capsule Take 1 Cap by mouth daily (Patient taking differently: Take 4 Capsules by mouth daily.) 90 Each 3 No current facility-administered medications on file prior to visit. Allergies: Allergies Allergen Reactions ??? Lopid [Gemfibrozil] Unknown Reaction Physical Exam: Patient Vitals for the past 24 hrs: BP Pulse Height Weight 03/06/23 1504 114/82 59 170.2 cm (67.01) 97.1 kg (214 lb) Body mass index is 33.51 kg/m??. General: well appearing patient in no acute distress.pt is on the wheelchair HEENT: normal, EOM intac, ADRIENNE Neck: supple, no enlarged Thyroid Lungs: Clear to auscultation Heart: Regular rate and rhythm, Assessment and Plan: . The pt is 32 yo male with panhypopituitarism and central diabetes insipidus secondary to resection of craniopharyngioma and complications in 2004. 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 1. 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 The pt is clinically euvolemic today Continue DDAVP 0.1 m tab am and 1.5 tabs pm Continue on 3.5 L of fluid per day. Will obtain BMP done by pcp this week 2. Secondary hypothyroidism. The pt is clinically biochemically euthyroid No recent lab: will get ft4 Continue Levothyroxine 200 mcg 1 tab po daily 3. Secondary adrenal insufficiency The pt 's weight has been stable. And has good appetite Gave instruction for sick day: double dose for 3 days and evaluate infection c/o pcp Gave instruciton to given hydrocortisoen 100 mg IM injection if pt is nvomiting and unable to keep med down to prevent adrenal insufficiency 4. Secondary hypogonadism. Currently off testosterone therapy. 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) Expected: 03/13/2023 (Approximate), Expires: 03/06/2024 TESTOSTERONE, TOTAL AND FREE Lab Routine 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HCC-CMS) Secondary adrenal insufficiency (HCC-CMS) 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) Expected: 03/13/2023 (Approximate), Expires: 03/06/2024 LAB URINE CHEMICAL (DIP) - DOES NOT REFLEX Lab Routine 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HCC-CMS) Secondary adrenal insufficiency (HCC-CMS) 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 Medication Sig Dispensed Refills Start Date End Date montelukast (SINGULAIR) 10 mg tablet 01/27/2023 cetirizine (ZYRTEC) 10 mg tablet Take 1 Tablet by mouth daily. pyridoxine, vitamin B6, (VITAMIN B6) 50 mg tablet Take 1 Tablet by mouth daily. quetiapine (SEROQUEL XR) 150 mg ER 24 hr tablet 03/04/2023 Prazosin (MINIPRESS) 2 mg capsule 03/03/2023 added in this encounter Care Teams Biodiesel Production Associate Relationship Specialty Start Date End Date Ren Vaz MD [address] [place] [address] PCP - General 09/30/18 documented as of this encounter
--- OUTSIDE RECORDS SUMMARY | 2024-03-05 15:43 | XMS_ITS | Encounter Summary ---
Author Organization [facility] Address [address] [place] [address] Care Team Providers Care Watershed Engineer Name Role Phone Ren Vaz MD Primary Care Provider [phone] Reason for Visit * Reason Onset Date Comments Coordination Of Care 03/24/2019 Encounter Details Date Type Department Care Team (Late st Contact Info) Description 03/24/[address] [facility] Endocrinology - [facility] [address] [place] [address] Wilder Zaidi, [address] [facility] [address] [place] [address] Coordination Of Care Social History Tobacco Use Types Packs/Day [...] Encounter - Carlos Alberto Benitez RN - 03/24/2019 1336 EDT Called and left message for Case Manger relaying Dr. Zaidi's message below: I spoke with patient's provider during his most recent admission. I reviewed his presentation. If he continues to have fevers they need to do the following: Stress dose of steroids (double home dose orally) and bring him to for an evaluation to either an on-call, his primary care doctor or the emergency department. This needs to be done today as patient has adrenal insufficiency could be kinked become quite sick. If he begins vomiting they should use his injectable hydrocortisone and go to the emergency department. Instructed business services manager to call back with any questions. * Telephone Encounter - Wilder Zaidi Do - 03/24/2019 1324 EDT I spoke with patient's provider during his most recent admission. I reviewed his presentation. If he continues to have fevers they need to do the following: Stress dose of steroids (double home dose orally) and bring him to for an evaluation to either an on-call, his primary care doctor or the emergency department. This needs to be done today as patient has adrenal insufficiency could be kinked become quite sick. If he begins vomiting they should use his injectable hydrocortisone and go to the emergency department. * Telephone Encounter - Carlos Alberto Benitez RN - 03/24/2019 1313 EDT Called and left message for business services manager to call back. * Telephone Encounter - Georgia Cervantes - 03/24/2019 1016 EDT Evelyn calling as patient is running a high fever today and was hospitalized a couple of days ago Evelyn stated they have hard time with the local hospital and Dr. Zaidi has called them before to explain patients medical condition Evelyn is thinking of taking patient to the ER today and possibly have Dr. Zaidi call the hospitalahead but would like to speak to a nurse first Please call Evelyn back SHEEBA documented in this encounter Plan of Treatment Upcoming Encounters Date Type Department Care Team (Late st Contact Info) Description 09/09/2024 10:20 EST Office Visit [facility] Endocrinology - [address] [address] Day Littlejohn MD PhD [address] [facility] [address] [place] [phone] documented as of this encounter Visit Diagnoses Not on filedocumented in this encounter Care Teams Watershed Engineer Relationship Specialty Start Date End Date [place] [address] PCP - General 09/30/18 documented as of this encounter
--- OUTSIDE RECORDS SUMMARY | 2024-03-05 15:43 | XMS_ITS | Encounter Summary ---
Author Organization [facility] Address [address] [place] [address] Care Team Providers Care Av Specialist Name Role Phone Ren Vaz MD Primary Care Provider [phone] Reason for Visit * Reason Onset Date Comments Follow-up 01/04/2020 Encounter Details Date Type Department Care Team (Late st Contact Info) Description 01/04/2020 Telephone [facility] Endocrinology - [facility] [address] [place] [address] Wilder Zaidi, [address] [facility] [address] [place] [address] Follow-up Social History Tobacco Use Types Packs/Day Years [...] Encounter - Lesley Jeffrey RN - 01/04/2020 1648 EDT Form completed and signed by provider. Last progress note printed. Both documents faxed to [phone] by this typewriters functional tester. Informed to call back if needs more information. LESLEY COURTNEY RN 01/04/2020 16:49 * Telephone Encounter - Lesley Jeffrey RN - 01/04/2020 1315 EDT Kwesi calling from [facility] 01/04/20 13:16 Need a referral to be able to draw the lab requisitions that were electronically faxed 01/04/20 by this typewriters functional tester. [facility] 1. Facility needs referral to be completed/signed by provider 2. Include last progress note 3. Attention : not necessary Kwesi will be faxing the referral to [phone]. The fax will be to this typewriters functional tester's attention. Referral received 01/04/20 at 12:18. Form will be handed to the provider. LESLEY COURTNEY RN 01/04/2020 13:21 * Telephone Encounter - Debbie Choudhary - 01/04/2020 1313 EDT Raphael calling back for Lesley. documented in this encounter Plan of Treatment Upcoming Encounters Date Type Department Care Team (Late st Contact Info) Description 09/09/2024 10:20 EST Office Visit [facility] Endocrinology - [address] [address] Day Littlejohn MD PhD [address] [place] [address] [address] [place] [address] documented as of this encounter Visit Diagnoses Not on filedocumented in this encounter Care Teams Av Specialist Relationship Specialty Start Date End Date Ren Vaz MD [address] [facility] [address] PCP - General 09/30/18 documented as of this encounter
--- OUTSIDE RECORDS SUMMARY | 2024-03-05 15:43 | XMS_ITS | Data Portability ---
Author Organization [place] - [facility] Address [address] [place] [address] Care Team Providers Care Cio Name Role Phone [facility] Psychiatrist Assessment Encounter Date Assessment Date Assessment LastModified by Organization Details LastModified Time 09/18/2023 09/18/2023 Pt. 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 He does take aspirin which may explain this, but we will check liver labs and PT/INR to see if there is any correlation. [email or web address] Not available 09/18/2023 10:32:26 Plan of Treatment Reminders Order Date Submit Date Provider Last Modified By Organization Details Last Modified Time Details Appointments Annual Wellness Exam 40 2023 11:00A M Not available Not available Not available Lab CMP, serum or plasma 2023 024 [facility] (Registration ), [address] [place] [address] [place], [address], 09/18/2023 16:32:24 PT/INR 2023 024 [facility] (Registration ), [address] [place] [address] [place], [address], 09/25/2023 10:33:39 CBC w/ auto diff - 1 Nocatee, 1 LAVB, 1 Blue 2023 024 [facility] (Registration ), [address] [place] [address] [place], [address], 09/18/2023 16:41:31 lipids, total, serum [address] [facility] (Registration ), [address] [place] [address] [place], [address], 03/05/2024 12:21:49 CBC w/ auto diff [address] [facility] (Registration ), [address] [place] [address] [place], [address], 03/05/2024 12:21:49 C-reactiv e protein, quantitat bebe, serum or plasma [address] [facility] (Registration ), [address] [place] [address] [place], [address], 03/05/2024 12:21:49 ESR (erythroc yte sedimenta tion rate), blood [address] [facility] (Registration ), [address] [place] [address] [place], [address], 03/05/2024 12:21:49 CMP, serum or plasma - 1 SST, 1 Nocatee, 1 LAV [address] [facility] (Registration ), [address] [place] [address] [place], [address], 03/05/2024 12:21:49 urinalysi s, dipstick [address] [facility] ([facility]), [address] [place] [address] [place], [address], 03/05/2024 12:21:49 TSH, serum, reflex free T4 [address] [facility] (Registration ), [address] [place] [address] [place], [address], 03/05/2024 12:21:49 Referral None recorded. Procedures None recorded. Surgeries None recorded. Imaging None recorded. Medication Orders mupirocin 2 % topical ointment 2023 024 [facility]- [address] [place], [address], 09/18/2023 10:33:44 hydroxyzi ne HCl 25 mg tablet 2023 024 [place] [address] [address] [place], [address], 09/18/2023 10:33:44 quetiapin e ER 200 mg tablet,ex tended release 24 hr 2023 024 [facility] [address] [place], [address], 03/05/2024 12:23:09 Patient TargetsNo targets recorded. Patient InstructionsNo instructions recorded. Reason for Referral Neurologist Referral for Sei zure disorder Muscle spasms, seizure history, med changes? Pt. 33-M, with PMH notable for cognitive impairment, left hemiparesis, cortical blindness, urine incontinence, dysarthria, epilepsy, trichotillomania, chronic skin picking, and muscle spasm being referred at the request of his psychiatrist Dr. Mccoy at [facility], to consider possible medication changes that may benefit his spasms, mood/agitation/insomnia, and chronic skin picking. Particular requests were1) Could anticonvulsant w/modd stabilizaiton be considered for his seizure type? 2) Are there any new treatments for muscle spasms? 3) Any concerns about adding Gabapentin for aid in anxiety, insomnia, muscle spasms? Referring Physician: Jimbo More, Family Medicine, Encounter Date: 01/01/2024 Results Created Date Observation Date Name Description Value Unit Range Abnormal Flag Note LastModifiedBy Organization Detail LastModifiedTime 09/18/1909/18/2023 PROTH ROMBI N TIME prothrombin time 10.7 sec 9.1-11 .1 normal Not Available [facility] [address] [facility] , [place], [address] 09/18/2023 16:14:17 09/18/19 24 09/18/2023 PROTDoris SMITH N TIME INR 1.1 0.9-1. 1 normal Recom ivon d INR thera peuti c range s for orall y admin ister ed drugs are as follo ws: -Elias dard Inten sity 2.0 to 3.0 -High er Inten sity 3.0 to 4.5 Not Available [address] [place], [address] 09/18/2023 16:14:17 09/18/19 24 09/18/2023 COMPR EHENS BEBE METAB OLIC PANEL calcium 8.8 mg/dL 8.5-10 .1 normal Not Available [address] [place], [address] 09/18/2023 16:32:24 09/18/19 24 09/18/2023 COMPR EHENS BEBE METAB OLIC PANEL glucose 95 mg/dL 74-106 normal Not Available Barrie gomez [address] [place], [address] 09/18/2023 16:32:24 09/18/19 24 09/18/2023 COMPR EHENS BEBE METAB OLIC PANEL BUN 18 mg/dL 7-18 normal Not Available Barrie gomez [address] [place], [address] 09/18/2023 16:32:24 09/18/19 24 09/18/2023 COMPR EHENS BEBE METAB OLIC PANEL creatinine 1.0 mg/dL 0.70-1 .30 normal Not Available [address] [place], [address] 09/18/2023 16:32:24 09/18/19 24 09/18/2023 COMPR EHENS BEBE METAB OLIC PANEL estimated GFR 101.92 mL/min /1.73m 2 The eGFR is calcu lated from a serum creat inine using the CKD-E PI 2020 equat ion. Other varia bles requi red for the equat ion are gende r and age; this equat ion does not inclu de a race coeff icien t. This equat ion has simil ar overa ll perfo rmanc e to previ ous equat ions excep t value s may diffe r, in parti cular , in patie nts with highe r value s of eGFR and young er-ag ed adult s. Not Available [address] [place], [address] 09/18/2023 16:32:24 09/18/19 24 09/18/2023 COMPR EHENS BEBE METAB OLIC PANEL total protein 7.2 g/dL 6.4-8. 2 normal Not Available [address] [place], [address] 09/18/2023 16:32:24 09/18/19 24 09/18/2023 COMPR EHENS BEBE METAB OLIC PANEL albumin 4.0 g/dL 3.4-5. 0 normal Not Available [address] [place], [address] 09/18/2023 16:32:24 09/18/19 24 09/18/2023 COMPR EHENS BEBE METAB OLIC PANEL bilirubin, total 0.4 mg/dL 0.2-1. 0 normal Not Available [address] [place], [address] 09/18/2023 16:32:24 09/18/19 24 09/18/2023 COMPR EHENS BEBE METAB OLIC PANEL alk phos 111 U/L 46-116 normal Not Available [address] [place], [address] 09/18/2023 16:32:24 09/18/19 24 09/18/2023 COMPR EHENS BEBE METAB OLIC PANEL sodium 148 mmol/ L 136-14 5 high Not Available [address] [place], [address] 09/18/2023 16:32:24 09/18/19 24 09/18/2023 COMPR EHENS BEBE METAB OLIC PANEL potassium 3.7 mmol/ L 3.5-5. 1 normal Not Available [address] [place], [address] 09/18/2023 16:32:24 09/18/19 24 09/18/2023 COMPR EHENS BEBE METAB OLIC PANEL chloride 109 mmol/ L 98-107 high Not Available [address] [place], [address] 09/18/2023 16:32:24 09/18/19 24 09/18/2023 COMPR EHENS BEBE METAB OLIC PANEL CO2 26.2 mmol/ L 21.0-3 2.0 normal Not Available [address] [place], [address] 09/18/2023 16:32:24 09/18/19 24 09/18/2023 COMPR EHENS BEBE METAB OLIC PANEL anion gap 12.8 mmol/ L 3-11 high Not Available [address] [place], [address] 09/18/2023 16:32:24 09/18/19 24 09/18/2023 COMPR EHENS BEBE METAB OLIC PANEL AST 23 U/L 15-37 normal Not Available Barrie [address] [place], [address] 09/18/2023 16:32:24 09/18/19 24 09/18/2023 COMPR EHENS BEBE METAB OLIC PANEL ALT 69 U/L 16-63 high Not Available Barrie [address] [place] [place], [address] 09/18/2023 16:32:24 09/18/19 24 09/18/2023 COMPL ETE BLOOD COUNT W/DIF F WBC 6.40 10_3/ uL 4.4-10 .8 normal Not Available [address] [place], [address] 09/18/2023 16:41:31 09/18/19 24 09/18/2023 COMPL ETE BLOOD COUNT W/DIF F RBC 5.16 10_6/ uL 4.36-5 .78 normal Not Available [address] [place], [address] 09/18/2023 16:41:31 09/18/19 24 09/18/2023 COMPL ETE BLOOD COUNT W/DIF F HGB 13.0 g/dL 13.5-1 7.5 low Not Available [address] [place], [address] 09/18/2023 16:41:31 09/18/19 24 09/18/2023 COMPL ETE BLOOD COUNT W/DIF F HCT 39.6 % 40.0-5 0.0 low Not Available [address] [place], [address] 09/18/2023 16:41:31 09/18/19 24 09/18/2023 COMPL ETE BLOOD COUNT W/DIF F MCV 77 fL 80-95 low Not Available Barrie [address] [place], [address] 09/18/2023 16:41:31 09/18/19 24 09/18/2023 COMPL ETE BLOOD COUNT W/DIF F MCH 25.2 pg 27.0-3 3.0 low Not Available [address] [place], [address] 09/18/2023 16:41:31 09/18/19 24 09/18/2023 COMPL ETE BLOOD COUNT W/DIF F MCHC 32.8 % 32.0-3 6.0 normal Not Available [address] [place], [address] 09/18/2023 16:41:31 09/18/19 24 09/18/2023 COMPL ETE BLOOD COUNT W/DIF F RDW 15.2 % 11.8-1 4.1 high Not Available [address] [place], [address] 09/18/2023 16:41:31 09/18/19 24 09/18/2023 COMPL ETE BLOOD COUNT W/DIF F platelet count 267 10_3/ uL 130-40 0 normal Not Available [address] [place], [address] 09/18/2023 16:41:31 09/18/19 24 09/18/2023 COMPL ETE BLOOD COUNT W/DIF F MPV 10.4 fL 8.0-11 .0 normal Not Available [address] [place], [address] 09/18/2023 16:41:31 09/18/19 24 09/18/2023 COMPL ETE BLOOD COUNT W/DIF F neutrophils % 51.5 Not Available [address] [place], [address] 09/18/2023 16:41:31 09/18/19 24 09/18/2023 COMPL ETE BLOOD COUNT W/DIF F lymphocytes % 37.0 Not Available [address] [place], [address] 09/18/2023 16:41:31 09/18/19 24 09/18/2023 COMPL ETE BLOOD COUNT W/DIF F monocytes % 8.3 Not Available [address] [place], [address] 09/18/2023 16:41:31 09/18/19 24 09/18/2023 COMPL ETE BLOOD COUNT W/DIF F eosinophils % 2.5 Not Available [address] [place], [address] 09/18/2023 16:41:31 09/18/19 24 09/18/2023 COMPL ETE BLOOD COUNT W/DIF F basophils % 0.5 Not Available [address] [place], [address] 09/18/2023 16:41:31 09/18/19 24 09/18/2023 COMPL ETE BLOOD COUNT W/DIF F immature grans % 0.2 Not Available [address] [place], [address] 09/18/2023 16:41:31 09/18/19 24 09/18/2023 COMPL ETE BLOOD COUNT W/DIF F nucleated RBC 0.0 % 0.0-0. 3 normal Not Available [address] [place], [address] 09/18/2023 16:41:31 09/18/19 24 09/18/2023 COMPL ETE BLOOD COUNT W/DIF F absolute neutrophil count 3.30 10_3/ uL 1.2-6. 7 normal Not Available [address] [place], [address] 09/18/2023 16:41:31 09/18/19 24 09/18/2023 COMPL ETE BLOOD COUNT W/DIF F absolute lymphocyte count 2.37 10_3/ uL 1.2-3. 4 normal Not Available [address] [facility] [place], [address] 09/18/2023 16:41:31 09/18/19 24 09/18/2023 COMPL ETE BLOOD COUNT W/DIF F absolute monocyte count 0.53 10_3/ uL 0.1-0. 8 normal Not Available [address] [place], [address] 09/18/2023 16:41:31 09/18/19 24 09/18/2023 COMPL ETE BLOOD COUNT W/DIF F absolute eosinophil count 0.16 10_3/ uL 0.0-0. 7 normal Not Available [address] [facility] [place], [address] 09/18/2023 16:41:31 09/18/19 24 09/18/2023 COMPL ETE BLOOD COUNT W/DIF F absolute basophil count 0.03 10_3/ uL 0.0-0. 2 normal Not Available [address] [place], [address] 09/18/2023 16:41:31 10/03/19 24 10/03/2023 CT imagi ng laurence bui Name: Miguel Angel Burgos Unit #: [id number] Loc: DI Orderi ng Provid er: Rowan Littlejohn t #: [id number] Status : REG CLI Primar y Care Provid er: Ren Vaz Date of Exam: Sex: M : 1989 Age: 33 Exam(s ) a CT:CT head wo Exam(s ) CT HEAD WO EXAM: CT HEAD WO CLINIC AL HISTOR Y: HX PITUIT MAC SURGER Y Z98.89 0 CRANIO PHARYN GIOMA D44.4. TECHNI QUE: Imagin g Protoc ol: Axial comput ed tomogr aphy images with johnston l and sagitt al reform atted images were create d and review ed COMPAR HARDIK: CT CT HEAD WO from 2019 FINDIN GS: Ventri cles and Extra axial spaces : Stable ex vacuo dilata tion of the right fronta l horn. Hemorr pamela: None. Cerebr al parenc hyma: No eviden ce of acute infarc t or mass. Stable large area of enceph alomal acia in the right fronta l and tempor al lobes. Surgic al clip again noted. Midlin e shift: None. Brains tem/Ce rebell um: Normal . Calvar ium: Right cranio des again noted. Visual ized Parana vel sinuse s:Smal l amount of mucous retent ion within sinuse s. Marked improv ement from prior. Prior sinus surger y noted. Mastoi ds: Clear. Soft Tissue s: Unrema rkable . ORBITS : Unrema rkable . PITUIT MAC: Not enlarg ed. IMPRES GRAYSON: No acute intrac ranial proces s.Stab le area of right fronta l tempor al enceph alomal acia. RADIAT ION DOSE DELIVE RED: Total DLP DATA REPOSI TORY: All CT scans at this facili ty are submit ivana to the [facility] Radiol ogy Data Regist ry (NRDR) Dose Index Regist ry (DIR) with the [place] [employer] harmon of Radiol ogy (ACR). RADIAT ION OPTIMI ZATION : All CT scans at this facili ty use at least one of these dose optimi zation techni ques: automa ivana exposu re contro l; mA and/or kV adjust ment per patien t size (inclu abena target ed exams where dose is matche d to clinic al indica tion); or iterat bebe recons tructi on. 0329-0 004: Total DLP = 0.00 mGy-cm Ordere d By: Rowan Littlejohn CC: ------ ------ ------ ------ ------ ------ ------ ------ ------ ------ ------ ------ ---- Dictat ed By: Shani Bermudez 0852 52 Transc ribed By: Brandon White 851 This is privil eged, confid ential inform ation intend ed only for the provid er named. Any use or distri bution by any person other than this provid er is strict ly prohib ited. If you receiv e this report in error, please notify us immedi ately at and return the origin al report to us at the addres s above. Thank- you. [email or web address] [facility] [address], [place], [address] 10/08/2023 14:54:07 10/03/19 24 10/03/2023 CT imagi ng repor t Patien t Name: Miguel Angel Burgos Unit #: [id number] Loc: DI Orderi ng Provid er: Rowan Littlejohn Accholly t #: [id number] Status : REG CLI Primar y Care Provid er: Ren Vaz Date of Exam: Sex: M : 1989 Age: 33 Exam(s ) a CT:CT head wo Exam(s ) CT HEAD WO EXAM: CT HEAD WO CLINIC AL HISTOR Y: HX PITUIT MAC SURGER Y Z98.89 0 CRANIO PHARYN GIOMA D44.4. TECHNI QUE: Imagin g Protoc ol: Axial comput ed tomogr aphy images with johnston l and sagitt al reform atted images were create d and review ed COMPAR HARDIK: CT CT HEAD WO from 2019 FINDIN GS: Ventri cles and Extra axial spaces : Stable ex vacuo dilata tion of the right fronta l horn. Hemorr pamela: None. Cerebr al parenc hyma: No eviden ce of acute infarc t or mass. Stable large area of enceph alomal acia in the right fronta l and tempor al lobes. Surgic al clip again noted. Midlin e shift: None. Brains tem/Ce rebell um: Normal . Calvar ium: Right cranio des again noted. Visual ized Parana vel sinuse s:Smal l amount of mucous retent ion within sinuse s. Marked improv ement from prior. Prior sinus surger y noted. Mastoi ds: Clear. Soft Tissue s: Unrema rkable . ORBITS : Unrema rkable . PITUIT MAC: Not enlarg ed. IMPRES GRAYSON: No acute intrac ranial proces s.Stab le area of right fronta l tempor al enceph alomal acia. RADIAT ION DOSE DELIVE RED: Total DLP DATA REPOSI TORY: All CT scans at this facili ty are submit ivana to the [facility] Radiol ogy Data Regist ry (NRDR) Dose Index Regist ry (DIR) with the [place] [employer] harmon of Radiol ogy (ACR). RADIAT ION OPTIMI ZATION : All CT scans at this facili ty use at least one of these dose optimi zation techni ques: automa ivana exposu re contro l; mA and/or kV adjust ment per patien t size (inclu abena target ed exams where dose is matche d to clinic al indica tion); or iterat bebe recons tructi on. 0329-0 004: Total DLP = 0.00 mGy-cm Ordere d By: Rowan Littlejohn CC: ------ ------ ------ ------ ------ ------ ------ ------ ------ ------ ------ ------ ---- Dictat ed By: Shani Bermudez [id number] 851 Transc ribed By: Brandon White 52 This is privil eged, confid ential inform ation intend ed only for the provid er named. Any use or distri bution by any person other than this [facility] er is strict ly prohib ited. If you receiv e this report in error, please notify us immedi ately at and return the origin al report to us at the addres s above. Thank- you. [email or web address] [facility] [address] [place], [address] 10/03/2023 19:17:29 10/03/19 24 10/03/2023 bone densi tomet ry imagi ng rpt Patien t Name: Miguel Angel Burgos Unit #: [id number] Loc: DI Orderi ng Provid er: Rowan Littlejohn Accoun t #: [id number] Status : REG CLI Primar y Care Provid er: Ren Vaz Date of Exam: Sex: M Carlota larkin Date: : 1989 Age: 33 Exam(s ) XR DEXA BONE DENSIT Y W/WO ALLISON EXAM: XR DEXA BONE DENSIT Y W/WO ALLISON CLINIC AL HISTOR Y: MALE HYPOGO NADISM E29.1 USE OF SYSTEM Sonalight DS Z79.52 TECHNI QUE: COMPAR HARDIK: CT CT ABDOME N PELVIS W from 2019 FINDIN GS: Latera l Spine Image: The appear ance of the spine is stable with multip le old compre ssion type deform ities. Right hip: Total T-Scor e: -1.9 Total Z-Scor e: -1.8 T- and Z-scor es: Findin gs are consis tent with osteop enia. No eviden ce of osteop orosis . Lumbar Spine: Total T-Scor e: -3.7 Total Z-Scor e: -3.7 T- and Z-scor es: Findin gs are consis tent with osteop orosis . IMPRES GRAYSON: 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 Thom d By: Rowan Littlejohn CC: ------ ------ ------ ------ ------ ------ ------ ------ ------ ------ ------ ------ - Dictat ed By: Yossi Benitez M.D. 39 938 Transc ribed By: Yossi Benitez 938 This is privil eged, confid ential inform ation intend ed only for the provid er named. Any use or distri bution by any person other than this provid er is strict ly prohib ited. If you receiv e this report in error, please notify us immedi jimly at and return the origin al report to us at the addres s above. Thank- you. [email or web address] [facility] [address], [place], [address] 10/03/2023 19:17:30 Result Notes None recorded. 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 Consider bisphosp honate at some point, but will defer to endocrin e given complexi ty of the case. Get vitamin D levels at least as he has been low in past. Problem Code: M81.0; Problem Code Type: ICD-10; Not Available [facility] 3 04:21:52 Pure hypergly ceridemi a 604770674 Active 201602/27/20 22 - Comments only - Ren Vaz MD - tolerati ng statin. However with elevated LFTs could consider cutting statin dose to see if helps LFTs. Problem Code: E78.1; Problem Code Type: ICD-10; Not Available [facility] 3 04:21:53 History of benign neoplasm of brain 486819448 Active 2016 Problem Code: Z86.011; Problem Code Type: ICD-10; Not Available [facility] 3 04:21:53 Insomnia 814828553 Active 201612/09/19 19 - Deterior ated - Subha Colon GEOLOGICAL SCOUT - Currentl y on trazodon e, not effectiv e. See above. 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 Cycloben zaprine no longer effectiv e. Will change to baclofen 10mg TID. workers compensation manager will call in 1-2 weeks to report effectiv eness. Pain may be influenc ing increase d agitatio n and poor sleep. Problem Code: M24.50; Problem Code Type: ICD-10; Not Available [facility] 3 04:21:53 Amnesia 08805117 Active 2016 Problem Code: R41.3; Problem Code Type: ICD-10; Not Available [facility] 3 04:21:53 Hemipleg ia 04198700 Active 201602/22/20 21 - Comments only - Ren Vaz MD - Encourag ing increase in activty. I agree with PT. Problem Code: G81.90; Problem Code Type: ICD-10; Not Available [facility] 3 04:21:54 Red blood cell finding 632871872 Active 2017 Problem Code: R71.8; Problem Code Type: ICD-10; Not Available [facility] 3 04:21:54 Retentio n of urine 555817945 Active 201805/18/20 19 - Comments only - Subha Colon APRN - Suscepti ble to UTIs. They will return urine sample for testing. Problem Code: R33.9; Problem Code Type: ICD-10; Not Available [facility] 3 04:21:54 Restless ness and agitatio n 526995105 Active 2018 Problem Code: R45.1; Problem Code Type: ICD-10; Not Available [facility] 3 04:21:54 Seizure 12839219 Active 2018 Problem Code: R56.9; Problem Code Type: ICD-10; Not Available [facility] 3 04:21:54 Dyspnea 862568304 Completed 201806/01/2019 Problem Code: R06.02; Problem Code Type: ICD-10; Not Available [facility] 3 04:21:54 Acute upper respirat ory infectio n 68595942 Completed 201806/01/2019 05/18/20 19 - Comments only - Subha Darlene GEOLOGICAL SCOUT - With low-grad e fever, producti ve cough, wheezing . Pt is quite suscepti ble to both respirat ory and urinary tract infectio ns. Will start doxycycl ine to cover for possible pneumoni a. Advised to increase use of nebulize r to TID. Problem Code: J06.9; Problem Code Type: ICD-10; Not Available [facility] 3 04:21:55 Steatosi s of liver 090873028 Active 201903/03/20 23 - Comments only - Ren Vaz MD - Improved last year with weight loss. REcheck CBC/CMP with labs Problem Code: K76.0; Problem Code Type: ICD-10; Not Available [facility] 3 04:21:55 Adult health examinat ion Active 201903/03/20 23 - Comments only - eRn Vaz MD - Preventi ve care reviewed . He needs routine labs to monitor fatty liver, anemia. BMI had dropped, up slightly this year, discusse d diet/exe rcise He has been doing quite well overall with current supporti ve living/c aregiver s. See below Problem Code: Z00.00; Problem Code Type: ICD-10; Not Available [facility] 3 04:21:55 Bradycar hossein 84336921 Completed 201909/01/2019 08/25/19 20 - Comments only - Ren Vaz MD - Resolved after stopping metoprol ol. BP still okay, no hard indicati on for metoprol ol, so continue off this medicati on. Problem Code: R00.1; Problem Code Type: ICD-10; Not Available [facility] 3 04:21:55 Urticari a 109422050 Active 201908/14/19 21 - Comments only - Ren Vaz MD - irmpoved . continue higher dose H2 gui for now. Problem Code: L50.9; Problem Code Type: ICD-10; Not Available [facility] 3 04:21:55 Localize d eruption of skin 003506242 Completed 201904/26/2020 04/05/20 20 - Comments only - Ricarda Pablo Sanchez REGISTERED LAND SURVEYOR - Unclear etiology : possibly contact urticari a/contac t dermatit is from exposure to laundry detergen t on mattress pad. No red flags on exam; physical exam reassuri ng. VS normal. Prescrib ed triamcin olone cream and cetirizi ne. Discusse d symptoma tic mgmt and preventi on of secondar y bacteria l infectio n. Caregive rs to bring Miguel Agnel back for a f/u if symptoms do not improve with treatmen t or if any concerns . Problem Code: R21; Problem Code Type: ICD-10; Not Available [facility] 3 04:21:56 Anemia 106035546 Active 202008/20/19 22 - Comments only - Ren Vaz MD - This has been a stable chronic issue. We discusse d I iron stores actually normal, low TIBC suggests chronic disease cause. Continue to follow. Problem Code: D64.9; Problem Code Type: ICD-10; Not Available [facility] 3 04:21:56 Hypo-osm olality and or hyponatr emia 730226188 Active 202002/22/20 21 - Comments only - Ren Vaz MD - Doing well on fluid restrict ion, continue . Problem Code: E87.1; Problem Code Type: ICD-10; Not Available [facility] 3 04:21:56 Obesity 459377543 Active 2020 Problem Code: E66.9; Problem Code Type: ICD-10; Not Available [facility] 3 04:21:56 Furuncle of left axilla [id number] 691366 Active 202003/14/20 21 - Comments only - Ren Vaz MD - minimal response to amoxicil eulalio. It should be drained. Smaller lesion on breast is draining on it's own. Risks, benefits , and alternat corry of I&D reviewed with patient. Patient voiced agreemen t, caretake rs voiced understa jack and gave verbal consent. Area prepped in sterile fashion. I used skin refriger ant and was able to inject 0.2ml lidocain e with epi before Miguel Angel knocked the syringe to the floor. It was enough to make ~8mm incsion over head of abcess, with Miguel Angel's help I was able to express ~2-3ml of pus. Still area of deeper indurati on, but not fluctuan t. I attempte d to explore the abcess to break up adhesion , but he did not tolerate this. Wound cleaned and covered. Will treat with TMP/SMX to treat residual infectio n. cover MRSA. Problem Code: L02.422; Problem Code Type: ICD-10; Not Available [facility] 3 04:21:56 Trichoti jensmania 35547080 Active 202102/27/20 22 - Comments only - Ren Vaz MD - Discusse d skin care, defer medicati on adjustme nts to psych Problem Code: F63.3; Problem Code Type: ICD-10; Not Available [facility] 3 04:21:56 Diabetes insipidu s 92012727 Active 201605/24/20 19 - Comments only - Subha Colon APRN - Will recheck sodium level. Problem Code: E23.2; Problem Code Type: ICD-10; Not Available [facility] 3 04:21:57 Hypopitu itarism 09034459 Active 2016 Problem Code: E23.0; Problem Code Type: ICD-10; Not Available [facility] 3 04:21:57 Hypothyr oidism 79636145 Active 201602/22/20 21 - Comments only - Ren Vaz MD - FT4 at goal, continue current supplume ntation Problem Code: E03.8; Problem Code Type: ICD-10; Not Available [facility] 3 04:21:57 History and physical examinat ion, administ yamil Completed 201807/09/2019 Problem Code: Z02.89; Problem Code Type: ICD-10; Not Available [facility] 3 04:21:58 Disorder of eye 831621166 Completed 201804/05/2019 Problem Code: H44.89; Problem Code Type: ICD-10; Not Available [facility] 3 04:21:59 Pain of left knee joint 62602727363 4107 Completed 201707/09/2019 Problem Code: M25.562; Problem Code Type: ICD-10; Not Available [facility] 3 04:21:59 Bleeding 611488909 Completed 202002/21/2021 Problem Code: R58; Problem Code Type: ICD-10; Not Available [facility] 3 04:21:59 Fever 931420812 Completed 201804/05/2019 Problem Code: R50.9; Problem Code Type: ICD-10; Not Available [facility] 3 04:21:59 Family history of diabetes mellitus 445646243 Completed 201607/09/2019 Problem Code: Z83.3; Problem Code Type: ICD-10; Not Available [facility] 3 04:22:00 Fever 531097850 Completed 201805/24/2019 Problem Code: R50.9; Problem Code Type: ICD-10; Not Available [facility] 3 04:22:00 Gastroes ophageal reflux disease without esophagi tis 354899534 Completed 201604/02/2023 Problem Code: K21.9; Problem Code Type: ICD-10; Not Available [facility] 3 04:22:00 Wheezing 96775005 Completed 201709/18/2018 Problem Code: R06.2; Problem Code Type: ICD-10; Not Available [facility] 3 04:22:00 High enzyme level in serum 766864838 Completed 201904/02/2023 02/27/20 22 - Comments only - Ren Vaz MD - Negative work up for viral hepatiti s, nl iron. No EtOH. Liver u/s c/w fatty liver. Will repeat CBC/CMP, refer for hepatolo gy if/when concerni ng for advanced fibrosis on FIB4. Could consider adjustin g zonisami de and/or statin dose if getting worse. Problem Code: R74.8; Problem Code Type: ICD-10; Not Available [facility] 3 04:22:01 Body mass index 30+ - obesity 026571331 Completed 202004/02/2023 Problem Code: Z68.34; Problem Code Type: ICD-10; Not Available [facility] 3 04:22:01 Disorder of intestin e 91269528 Completed 202008/14/2020 Problem Code: K63.9; Problem Code Type: ICD-10; Not Available [facility] 3 04:22:01 Screenin g for disorder Completed 201809/18/2018 Problem Code: Z13.9; Problem Code Type: ICD-10; Not Available [facility] 3 04:22:01 Spasm 05206516 Completed 201704/02/2023 08/25/19 20 - Comments only - Ren Vaz MD - Ongoing problem since CVA. Has neuro consult in october to consiide botox. For now try higher dose lorazepa m along with baclofen . Problem Code: R25.2; Problem Code Type: ICD-10; Not Available [facility] 3 04:22:02 Pain of right knee joint 49538926785 4100 Completed 201704/30/2018 Problem Code: M25.561; Problem Code Type: ICD-10; Not Available [facility] 3 04:22:02 Cough 63295862 Completed 201709/08/2019 Problem Code: R05; Problem Code Type: ICD-10; Not Available [facility] 3 04:22:02 Iron deficien cy anemia 56881724 Completed 201704/02/2023 Problem Code: D50.8; Problem Code Type: ICD-10; NAKIA SANTOS [address], [place], [address] , [facility], [facility]. 4 09:14:59 Counseli odalis Completed 201812/08/2018 Problem Code: Z71.89; Problem Code Type: ICD-10; Not Available [facility] 3 04:22:03 Disorder of tooth developm ent 324298677 Completed 201808/14/2020 Problem Code: K00.9; Problem Code Type: ICD-10; Not Available [facility] 3 04:22:03 Hypocalc emia 3408350 Completed 201910/25/2019 Problem Code: E83.51; Problem Code Type: ICD-10; Not Available [facility] 3 04:22:03 Hyperosm olality and or hypernat remia 149107957 Completed 201908/14/2020 Problem Code: E87.0; Problem Code Type: ICD-10; Not Available [facility] 3 04:22:04 Testicul ar hypofunc tion 078157538 Completed 201604/02/2023 Problem Code: E29.1; Problem Code Type: ICD-10; Not Available [facility] 3 04:22:04 Seasonal allergic rhinitis 518518093 Completed 201904/02/2023 10/25/19 20 - Comments only - Ren Vaz MD - try H1 block Problem Code: J30.2; Problem Code Type: ICD-10; Not Available [facility] 3 04:22:05 Wheezing 18645495 Completed 201805/24/2019 Problem Code: R06.2; Problem Code Type: ICD-10; Not Available [facility] 3 04:22:05 Seizure 19009839 Completed 201607/09/2019 Problem Code: R56.9; Problem Code Type: ICD-10; Not Available [facility] 3 04:22:05 Chronic excoriat ion of skin 380673865 Active [address], [place], [address] , [facility] 4 09:12:56 Non-alco holic fatty liver disease Active [address], [place], [address] , [facility] 4 09:14:30 Iron deficien cy anemia 23590903 Active 2023 Problem Code: D50.8; Problem Code Type: ICD-10; NAKIA SANTOS Dr, [facility] [address] , [facility] 4 09:14:59 Pruritic disorder 448629400 Active [address], [facility] [address] , [facility] 4 09:21:10 Seizure disorder 264579913 Active [address], [facility] [address] , [facility] 4 10:59:32 Finding of frequenc y of urinatio n 910529508 Active [address], [facility] [address] , [facility] 4 11:23:00 Notes:*Problem Name: Blindne ss - both eyes *Problem Status: active *Comments: *Problem Code: H54.0 *Problem Code Type: ICD-10 *Note Date: 11/11/2016 Problem Notes None recorded. Procedures Surgical History None recorded. Imaging Results Imaging Date Name Status LastModified by Organization Details LastModified Time 10/03/2023 CT imaging report completed [email or web address] [address] [place], [address] 10/08/2023 14:54:07 10/03/2023 CT imaging report completed [email or web address] [address] [place], [address] 10/03/2023 19:17:29 10/03/2023 bone densitometry imaging rpt completed [email or web address] [address] [place], [address] 10/03/2023 19:17:30 Procedure Notes None recorded. Medical Equipment None Reported. Medications Name Sig Start Date Stop Date Status Note LastModified by Organization Details LastModified Time cyclobenz aprine 10 mg tablet take 1 tablet by mouth three times a day 12/08 completed Not Available Not Available Not Available atorvasta tin 40 mg tablet TAKE 1 TABLET BY MOUTH EVERY NIGHT 2023 active Not Available Not Available Not Avai lable Augmentin 875 mg-125 mg tablet Take 1 tablet by mouth twice a day 03/12 completed Not Available Not Available Not Available levothyro xine 175 mcg tablet Take 1 tablet by mouth once a day EVERY MORNING 10/20 completed Not Available Not Available Not Available acetamino phen 325 mg tablet 2 tabs q 6 hrs as needed for pain 2017 active Not Available Not Available Not Avai lable ipratropi um 0.5 mg-albute rol 3 mg (2.5 mg base)/3 mL nebulizat ion soln 1 neb treatmen t every 6 hrs as needed 05/30 completed Not Available Not Available Not Available trazodone 50 mg tablet Take one tablet by mouth at bedtime 2016 active Not Available Not Available Not Avai lable cetirizin e 10 mg tablet Take 2 tablet by mouth once a day 2022 active Not Available Not Available Not Avai lable Ativan 1 mg tablet Take 1 tab by mouth daily as needed for extreme agitatio n 2018 active Not Available Not Available Not Avai lable alendrona te 70 mg tablet Take 1 tablet every week by oral route. active Rx'd by endocrin e, DEXA in 2-3 years for steroid use Not Available Not Available Not Available AndroGel 1 % (25 mg/2.5 gram) transderm al gel packet 5 g onto skin nightly 2016 active Not Available Not Available Not Avai lable clonazepa m 1 mg tablet Take 1 tablet by mouth single dose as needed Take one tablet at least a half hour prior to provider appointm ent. 03/15 completed Not Available Not Available Not Available Seroquel 25 mg tablet Take 1 tab by mouth in afternoo n 2016 active Not Available Not Available Not Avai lable melatonin 3 mg tablet Take 3 tablets by mouth at bedtime as needed 2016 active Not Available Not Available Not Avai lable omeprazol e 40 mg capsule,d elayed release TAKE 1 CAPSULE BY MOUTH ONCE A DAY 2023 active Not Available Not Available Not Avai lable aspirin 81 mg tablet,de layed release TAKE 1 TABLET BY MOUTH DAILY 2023 active Not Available Not Available Not Avai lable triamcino lone acetonide 0.1 % topical cream Apply twice a day 03/03 completed Not Available Not Available Not Available polyethyl paige glycol 1450 (bulk) powder take 17 g by mouth daily as needed (if not bowel movement in last 24 hours 2017 active Not Available Not Available Not Avai lable baclofen 20 mg tablet Take 1 tablet by mouth three times a day active Not Available Not Available No t Available levothyro xine 75 mcg tablet TAKE 3 TABLETS BY MOUTH EVERY MORNING 10/28 completed Not Available Not Available Not Available zonisamid e 100 mg capsule active Not Available Not Available Not Available Naphcon-A 0.025 %-0.3 % eye drops one drop each eye three times daily prn 04/01 completed Not Available Not Available Not Available AndroGel 1 % (50 mg/5 gram) transderm al gel packet Apply 5 gram to skin once a day 04/11 completed Not Available Not Available Not Available trazodone 100 mg tablet Take 2 tablet by mouth every night 09/17 completed Not Available Not Available Not Available Helen Lepe s 15 %-10 % topical cream 1 applicat ion topicall y 2 tmes a day 2017 active Not Available Not Available Not Avai lable lorazepam 2 mg tablet Take 1 tab by mouth daily as needed for severe cramping or extreme agitatio n 2018 active Not Available Not Available Not Avai lable baclofen 10 mg tablet take 1 tablet by mouth three times a day if needed 2018 active Not Available Not Available Not Avai lable doxycycli ne monohydra te 100 mg capsule Take 1 tab by mouth twice daily. 05/04 completed Not Available Not Available Not Available bisacodyl 10 mg rectal supposito ry insert 1 supposit ory daily for constipa tion as needed 2017 active Not Available Not Available Not Avai lable levothyro xine 150 mcg tablet Take 1 tab by mouth daily 2016 active Not Available Not Available Not Avai lable hydrocort isone 20 mg tablet Take 1 tab by mouth daily in AM 08/25 completed Not Available Not Available Not Available trazodone 300 mg tablet Take 2 tablet by mouth every night 09/17 completed Not Available Not Available Not Available pyridoxin e (vitamin B6) 50 mg tablet Take 1 tablet by mouth once a day 2023 active Not Available Not Available Not Avai lable monteluka st 10 mg tablet Take 1 tablet by mouth once a day 2022 active Not Available Not Available Not Avai lable hydroxyzi ne HCl 25 mg tablet 1 tablet by mouth twice during daytime as needed and 1-2 tablets at night as needed for pruritis . Max dose is 4 tablets daily. 2023 active Not Available Not Available Not Avai lable levothyro xine 200 mcg tablet Take 1 tablet by mouth once a day EVERY MORNING 2022 active Not Available Not Available Not Avai lable mupirocin 2 % topical ointment APPLY TOPICALL Y TO SORES ON SHOULDER /UPPER LEGS THREE TIMES A DAY NEEDED FOR INFECTTI ON SIGNS 2023 active Not Available Not Available Not Avai lable metoprolo l succinate ER 25 mg tablet,ex tended release 24 hr take 3 tablets by mouth daily, in a bubble pack 08/25 completed Not Available Not Available Not Available hydrocort isone 10 mg tablet TAKE 2 TABLETS EVERY MORNING AND 1 TABLET IN THE EVENING 2023 active Not Available Not Available Not Avai lable hydroxyzi ne HCl 10 mg tablet Take 1 tab by mouth daily at noon 05/30 completed Not Available Not Available Not Available doxycycli ne hyclate 100 mg tablet Take 1 tab by mouth twice daily 09/17 completed Not Available Not Available Not Available Tums 200 mg (as calcium carbonate 500 mg) chewable tablet 1 tablet by mouth nightly 2017 active Not Available Not Available Not Avai lable loratadin e 10 mg tablet Take 1 tab by mouth daily for allergie s during season 05/30 completed Not Available Not Available Not Available prazosin 2 mg capsule active Not Available Not Available Not Available Seroquel 200 mg tablet Take 1 tab by mouth daily at bedtime. 2016 active Not Available Not Available Not Avai lable simethico ne 80 mg chewable tablet take 0.5 tablets by mouth every 6 hours as needed 2017 active Not Available Not Available Not Avai lable desmopres sin 0.1 mg tablet Take 1 by mouth in the morning and 1 1/2 by mouth in the evening. 2023 active Not Available Not Available Not Avai lable Bactrim DS 800 mg-160 mg tablet Take 1 tablet by mouth twice a day for skin infectio n 04/11 completed Not Available Not Available Not Available Vitamin D3 25 mcg (1,000 unit) tablet Take 1 tablet by mouth once a day 03/25 completed Not Available Not Available Not Available cyclobenz aprine 5 mg tablet Take 1 tab by mouth twice times daily as needed Monitor closely for falls 2017 active Not Available Not Available Not Avai lable clonazepa m 2 mg disintegr ating tablet 1 by mouth every six hours as needed 06/20 completed Not Available Not Available Not Available Senna Plus 8.6 mg-50 mg tablet Take 2 tablet by mouth twice a day 03/03 completed Not Available Not Available Not Available Zonegran 25 mg capsule 3 capsules every bedtime 2016 active Not Available Not Available Not Avai lable Rozerem 8 mg tablet TAKE ONE TABLET BY MOUTH AT BEDTIME; FOLLOW UP IN 1-2 MONTHS active Not Available Not Available No t Available Nebulizer Use as directed for wheezing 2017 active Not Available Not Available Not Avai lable Vitamin D3 10 mcg (400 unit) capsule Take 1 tablet by mouth twice a day. 06/05 completed Not Available Not Available Not Available magnesium gluconate 27 mg magnesium (500 mg) tablet active Not Available Not Available Not Available Seroquel 50 mg tablet Take 5 tablets by mouth daily at bedtime. Take one tablet by mouth twice a day as needed. 2016 active Not Available Not Available Not Avai lable ferrous gluconate 324 mg (38 mg iron) tablet Take 1 tablet by mouth every other day take with meal in evening (not in morning after thyroid) active Not Available Not Available No t Available acetylcys teine 600 mg capsule Take 1 capsule twice a day by oral route. active Not Available Not Available No t Available quetiapin e ER 200 mg tablet,ex tended release 24 hr Take 1 tablet every day by oral route. 2023 active Not Available Not Available Not Troy garcia Dx: G81.90 - replacem ent for broken one 03/03 completed Not Available Not Available Not Available quetiapin e ER 150 mg tablet,ex tended release 24 hr active Not Available Not Available Not Available cholecalc iferol (vitamin D3) 25 mcg (1,000 unit) chewable tablet 1 tablet by mouth daily 2017 active Not Available Not Available Not Avai lable melatonin 10 mg tablet 1 tab qhs Take as needed. 2016 active Not Available Not Available Not Avai lable ferrous gluconate 256 mg (28 mg iron) tablet take 1 tab by mouth daily 04/10 completed Not Available Not Available Not Available melatonin 10 mg-lemon balm leaf extract 1 mg tablet Take 1 tablet every night as needed 2016 active Not Available Not Available Not Avai inesle Vitals Date Recorded Body height Body mass index (BMI) Body weight Body temperature Oxygen saturation Oxygen saturation in Arterial blood by Pulse oximetry Heart rate Systolic blood pressure Diastolic blood pressure Provider Name and Address Organization Details Last Updated DateTime 4 167.157 4 cm 34.9 kg/m2 52928.3 6 g 97.3 [degF] 100 % 100 % 100 /min 120 mm[Hg] 82 mm[Hg] KRISTYN SINGH [facility] 08:40:28 Date Recorded Body height Body mass index (BMI) Body weight Body temperature Oxygen saturation Oxygen saturation in Arterial blood by Pulse oximetry Heart rate Systolic blood pressure Diastolic blood pressure Provider Name and Address Organization Details Last Updated DateTime 4 167.157 4 cm 33.5 kg/m2 52692.1 8 g 97.7 [degF] 96 % 96 % 83 /min 118 mm[Hg] 82 mm[Hg] KRISTYN SINGH [facility] 4 11:07:26 Social History None recorded. Functional Status None recorded. Mental Status None recorded. Family History Nothing Reported Notes:*Problem: Mom had trever l failure Diabetes in the family Medical History No medical history recorded. Immunizations Vaccine Type Date Status Provider Name and Address Organization Details Recorded Time MMR 07/07/1999 completed Not Available [facility] 04:39:45 MMR 10/06/1991 completed Not Available [facility] 04:39:46 Tdap 09/21/2010 completed Not Available [facility] 04:39:47 Tdap 11/17/2020 completed Not Available [facility] 04:39:48 Influenza, split virus, quadrivalent, PF 05/21/2019 completed Not Available [facility] 05/16/2023 04:39:48 Hib, unspecified formulation 1990 completed Not Available [facility] 05/16/2023 04:39:48 Hib, unspecified formulation 1990 completed Not Available [facility] 05/16/2023 04:39:49 Hib, unspecified formulation 10/06/1991 completed Not Available [facility] 05/16/2023 04:39:49 Hib, unspecified formulation 1990 completed Not Available [facility] 05/16/2023 04:39:49 DTaP 1990 completed Not Available [facility] 04:39:50 DTaP 1990 completed Not Available [facility] 04:39:50 DTaP 10/06/1995 completed Not Available [facility] 04:39:50 DTaP 1990 completed Not Available [facility] 04:39:50 DTaP 03/07/1992 completed Not Available [facility] 04:39:50 COVID-19, mRNA, LNP-S, PF, 100 mcg/0.5mL dose or 50 mcg/0.25mL dose 10/01/2020 completed Not Available [facility] 05/16/20 04:39:50 COVID-19, mRNA, LNP-S, PF, 100 mcg/0.5mL dose or 50 mcg/0.25mL dose 02/26/2022 completed Not Available [facility] 05/16/20 04:39:51 SARS-COV-2 (COVID-19) vaccine, UNSPECIFIED 10/30/2020 completed Not Available [facility] 05/16/2023 04:39:52 SARS-COV-2 (COVID-19) vaccine, UNSPECIFIED 05/18/2021 completed Not Available [facility] 05/16/2023 04:39:52 Hep B, unspecified formulation 10/05/1992 completed Not Available [facility] 05/16/2023 04:39:52 Hep B, unspecified formulation 11/04/1992 completed Not Available [facility] 05/16/2023 04:39:52 Hep B, unspecified formulation 04/06/1993 completed Not Available [facility] 05/16/2023 04:39:52 influenza, unspecified formulation 05/12/2014 completed Not Available [facility] 05/16/2023 04:39:53 polio, unspecified formulation 1990 completed Not Available [facility] 05/16/2023 04:39:53 polio, unspecified formulation 1990 completed Not Available [facility] 05/16/2023 04:39:54 polio, unspecified formulation 10/06/1995 completed Not Available [facility] 05/16/2023 04:39:54 polio, unspecified formulation 1990 completed Not Available [facility] 05/16/2023 04:39:54 polio, unspecified formulation 03/07/1992 completed Not Available [facility] 05/16/2023 04:39:54 rabies, unspecified formulation 01/23/1995 completed Not Available [facility] 05/16/2023 04:39:55 rabies, unspecified formulation 01/27/1995 completed Not Available [facility] 05/16/2023 04:39:55 Influenza, split virus, quadrivalent, PF 04/21/2023 completed Not Available [facility] 07/18/2023 05:33:06 COVID-19, mRNA, LNP-S, PF, kota-sucrose, 30 mcg/0.3 mL 04/21/2023 completed Not Available [facility] 07/18/2023 05:33:07 Past Encounters Encounter ID Performer Location Encounter Start Date Encounter Closed Date Diagnosis/Indication Diagnosis SNOMED-CT Code Diagnosis ICD10 Code [id number] NAKIA SANTOS [facility] [address] [place] [address] 09/18/2023 08:30:46 09/18/2023 09:43:31 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 Chronic ex coriation of skin 696686411 T14.8XXA Non-alcoho lic fatty liver disease 9052233476 K76.0 Iron defic iency anemia 35757843 D50.9 Pruritic disorder 436021 002 L29.9 [id number] NAKIA SANTOS [facility] [address] [place] [address] 03/05/2024 10:55:01 03/05/2024 12:03:04 Finding of frequency of urination 275221569 R35.0 Restlessne ss and agitation 331399650 R45.1 Adult heal th examination 447364460 Z00.00 Hyperlipid emia screening 800123148 Z13.220 Hypothyroidism 75075167 E03.9 Health Concerns Section Related Observation LastModified by Organization Detai ls LastModified Time None Recorded Concern Status LastModified by Organization Details LastModified Time None Recorded Advance Directives Directive None Recorded Payers Encounter Date Sequence Insurance Name Policy Number Policy [employer] Covered Member ID [employer] Member ID Guarantor Name 09/18/2023 1 [facility] (MEDICAID) Miguel Angel Burgos [id number] Miguel Angel Burgos 03/05/2024 1 [facility] (MEDICAID) Miguel Angel Burgos [id number] Miguel Angel Burgos Notes Date Note Type Note Provider Name and Address Organization Details Recorded Time 09/18/2023 text/html HPI Notes: Pt. 3 3-M, with PMH notable for cognitive impairment, left hemiparesis, cortical blindness, urine incontinence, dysarthria, and ipilepsy. here w/care givers Ladonna and Kemi, here to establish care with new provider as their PCP is leaving. Pt./caregiver concern is some spots that the pt. has that he picks at that will occasionally bleed. He has history of this as Dr. Vaz documented in 2021 this manifestation of trichotillimania and the plan was, Trichotillomania. Not c/w abscess or cellulitis. C/w trichotillomania. This is challenging with Miguel Angel's mental status. Discuss med adjustments with pscyhiatry. For now treat superficial infection with mupirocin, can use prn hydroxyzine for extra anti-itch with cetirizine. He did just see Endocrinology a few weeks ago. He had a [address], [place], [address], [facility]. 09/18/2023 10:32:35 03/05/2024 text/html HPI Notes: Pt. 3 3-M, with PMH notable for cognitive impairment, left hemiparesis, cortical blindness, urine incontinence, dysarthria, and epilepsy. here w/care givers Ladonna and Kemi, here for CPE. He has had some superficial skin issues due to picking/pruritis and trichotillomania that he use prn hydroxyzine for extra anti-itch with cetirizine. Caregiver Nan, reports that he has had increasing agitation/anger episodes, having tantrums that is a departure from his normal. Nan reports they do try to keep him as busy as possible, going for rides, which he is instantly falling asleep. They do try to get him upstatirs to use the punching bag, and get some energy out. Soila denies any recent med changes. She reports that he may be urinating more frequently, but reports that he doesn't do anything. Nan unaware who his psych prescriber is. Sore on Left shoulder, can't cover it due to pt. propensity to eat dressings for wounds. Constitutional: Pt. denies fevers, chills, night sweats, and unexplained headaches. Ears: Pt. denies ear pain, discharge, loss of hearing. Eyes: No changes reported Nose: No signs of infection or bloody nose Mouth: Pt. denies any mouth sores, dental complaints, dry mouth. GI: No choking episodes, pt denies abdominal pain. No change in bowel pattern per caregiver. Pulmonary: Pt. denies any shortness of breath, cough, wheezing. Cardiac: Pt. denies any chest pain, : child caregiver private home endorses baseline of frequency MSK: Pt. denies any MSK complaints. Skin:Skin improved over prior per caregiver report Neuro: No loss of function apparent to caregiver in ambulation status. Endocrine: Caregiver denies new pattern of cold or hot manifestation in patient Hematologic: No frequent bleeding, epistaxis, easy bruisability reported by caregiver. [address]IA [address], [place], [address], [facility]. 03/05/2024 12:22:56
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
--- OUTSIDE RECORDS SUMMARY | 2024-03-05 15:43 | XMS_ITS | Encounter Summary ---
Author Organization [facility] Address [address] [place] [address] Care Team Providers Care Client Service Administrator Name Role Phone Ren Vaz MD Primary Care Provider [phone] Reason for Visit * Reason Onset Date Comments Coordination Of Care 01/05/2020 Encounter Details Date Type Department Care Team (Late st Contact Info) Description 01/05/2020 Telephone [facility] Endocrinology - [facility] [address] [place] [address] Wilder Zaidi, DO [address] [facility] [address] [place] [address] Coordination Of Care Social History [...] encounter Miscellaneous Notes * Telephone Encounter - Genna Carter - 01/05/2020 1656 EDT Electronically faxed requested information back to [facility]. * Telephone Encounter - Carmel Muniz - 01/05/2020 0908 EDT Raphael with [facility] following up on the referral. They have received it but need a medcount includes the [facility] problem list as well. Please fax to [phone]. documented in this encounter Plan of Treatment Upcoming Encounters Date Type Department Care Team (Late st Contact Info) Description 09/09/2024 10:20 EST Office Visit [facility] Endocrinology - [address] [id number] Day Littlejohn MD PhD [address] [place] [address] [address] [place] [id number] documented as of this encounter Visit Diagnoses Not on filedocumented in this encounter Care Teams Client Service Administrator Relationship Specialty Start Date End Date Ren Vaz MD [address] [place] [address] PCP - General 09/30/18 documented as of this encounter
--- OUTSIDE RECORDS SUMMARY | 2024-03-05 15:43 | XMS_ITS | Referral Summary ---
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 Patient has given permission for the [facility] to verbally discuss the following information [...] Noted Date Diagnosed Date Secondary adrenal insufficiency ([facility]) 2018 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[facility]) 06/14/2010 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[facility]) 03/2010 Craniopharyngioma ([facility]) 06/14/2010 Gonadotropin deficiency ([facility]) 06/14/2010 Secondary hypothyroidism 06/14/2010 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[facility]) 06/14/2010 Social History Tobacco Use Types Packs/Day Years [...] on file Sexual Orientation Not on file Last Filed Vital Signs Vital Sign Reading [...] Body Mass Index 32.3 03/04/2024 1111 EDT Functional Status Functional Status Response Date of [...] concentrating, remembering, or making decisions? Yes 10/01/2018 Plan of Treatment Upcoming Encounters Date Type Department Care Team (Late st Contact Info) Description 09/09/2024 10:20 EST Office Visit [facility] Endocrinology - [address] [address] Day Littlejohn MD PhD [address] [facility] [address] [place] [address] Medical Devices Implanted Type Area Medart Operator Device Identifier Shelf Expiration Date Model / [...] Negative 08/02/2019 11:26 EST [facility] Blood VENOUS BLOOD / Unknown 07/30/2019 11:59 EST 07/30/2019 16:45 EST Provider Unknown CHEMISTRY & BLOOD GA S ORDERABLES [facility] [address] [place] [address] from Last 3 Months or Most Recently Relevant to Health Maintenance Miguel Angel Burgos Jr. Personal/Family Self 1990 [address] [place] [address] Miguel Angel Burgos Jr. Personal/Family Self 1990 [address] [place] [address] Miguel Angel Burgos Jr. Personal/Family Self 1990 [address] [place] [id number] Advance Directives For more information, please contact: [phone] * Full Code (Latest Code Status on File) Date Activated Date Inactivated Comments 02/24/2011 22:28 02/25/2011 20:41 Care Teams Plycor Operator Relationship Specialty Start Date End Date Ren Vaz MD [place] [address] PCP - General 09/30/18
--- OUTSIDE RECORDS SUMMARY | 2024-03-05 15:43 | XMS_ITS | Encounter Summary ---
Author Organization [facility] Address [address] [place] [address] Care Team Providers Care Retail Customer Service Representative Name Role Phone Ren Vaz MD Primary Care Provider [phone] Reason for Referral * (Routine/Next Available) - Receiving Office to Obtain Authorization Specialty Diagnoses / Procedures Referred By Contac t Referred To Contact Procedures XR OUTSIDE IMAGES DEXA Imaging, External Referral ID Status Reason Start Date Expiration Date Visits Requested Visits Authorized [id number] Receiving Office to Obtain Authorization 10/03/2023 1 1 Reason for Visit * (Routine/Next Available) - Receiving Office to Obtain Authorization Specialty Diagnoses / Procedures Referred By Contac t Referred To Contact Procedures XR OUTSIDE IMAGES DEXA Imaging, External Referral ID Status Reason Start Date Expiration Date Visits Requested Visits Authorized [id number] Receiving Office to Obtain Authorization 10/03/2023 1 1 Encounter Details Date Type Department Care Team (Latest Contact Info) Description 10/03/2023 15:30 EDT - 10/03/2023 23:59 EDT Hospital Encounter [facility] Radiology - Main [place] [address] [place], [place] [address] Discharge Disposition: Home or Self Care Social [...] Info) Description 09/09/2024 10:20 EST Office Visit [facility] Endocrinology - [address] [address] Day Littlejohn MD PhD [address] [place] [address] [address] [place] [address] documented as of this encounter Procedures Procedure Name Priority Date/Time Associated Diagnosis Comments XR OUTSIDE IMAGES DEXA Routine 10/03/2023 15:30 EDT documented in this encounter Results * XR OUTSIDE IMAGES DEXA (10/03/2023 15:30 EDT) Narrative JENNIFER - 10/03/2023 15:30 EDT This is a non-reportable exam. External Imaging IMG OTHER IMAGING OR DERABLES Performing Organization Address City/State/[facility] Co de Phone Number JENNIFER documented in this encounter Visit Diagnoses Not on filedocumented in this encounter Care Teams Retail Customer Service Representative Relationship Specialty Start Date End Date Ren Vaz [place] [place] [address] PCP - General 09/30/18 documented as of this encounter
--- OUTSIDE RECORDS SUMMARY | 2024-03-05 15:43 | XMS_ITS | Encounter Summary ---
Author Organization [facility] Address [address] [place] [address] Care Team Providers Care Continuous Dryout Operator Name Role Phone Ren Vaz MD Primary Care Provider [phone] Reason for Visit * Reason Onset Date Comments Medication Questions 11/09/2020 Encounter Details Date Type Department Care Team (Late st Contact Info) Description 11/09/2020 Telephone [facility] Endocrinology - [facility] [address] [place] [address] Wilder Zaidi, 62 [facility] [address] [place] [address] Medication Questions Social History Tobacco Use Types Packs/Day Years [...] encounter Miscellaneous Notes * Telephone Encounter - Melba Ervin RN - 11/09/2020 1432 EDT Call to: Prachi senior restaurant manager Relayed Dr. Ziadi's message: Wilder Zaidi DO Note Testosterone is not a life-sustaining therapy. If it is causing a decrease in quality of life and increased agitation aggressiveness then it does not need to be continued. The only benefit would be with regards to reducing risk of osteoporosis later in life. This can be accomplished with other medications that do not include testosterone as needed. If patient clearly has behavioral changes whileon testosterone and I support being off of it for now. We can always reassess at a different time. I be happy to speak with patient's sister via phone if needed Emailed this paragraph for records at residential home. Prachi verbalized understanding, does not feel sister needs to be contacted at this time, will lether know if she has any questions to please reach out to our office. MELBA ERVIN RN 11/09/2020 14:35 * Telephone Encounter - Wilder Zaidi DO - 11/09/2020 1352 EDT Testosterone is not a life-sustaining therapy. If it is causing a decrease in quality of life and increased agitation aggressiveness then it does not need to be continued. The only benefit would be with regards to reducing risk of osteoporosis later in life. This can be accomplished with other medications that do not include testosterone as needed. If patient clearly has behavioral changes while on testosterone and I support being off of it for now. We can always reassess at a different time. Rosendo happy to speak with patient's sister via phone if needed * Telephone Encounter - Melba Ervin RN - 11/09/2020 1123 EDT 11/26/[address] Gilbert There was some increase in agitation, biting himself and rolling over his own foot with his wheelchair on occasion. He also had been more aggressive with staff. His testosterone was discontinued. Noother changes have been made in his medication. * Telephone Encounter - Sanjuana Braxton - 11/09/2020 1109 EDT Caller is the telephonic nurse case manager for patient, advising that the patient saw their PCP back in August and was put back on testosterone (ANDROGEL) 20.25 mg/1.25 gram (1.62 %) transdermal gel pump. Patient was originally taken off it because it was causing major aggression issues, but the patients sister was insistent that Dr. Zaidi stated the patient needed to be on it. Caller has questions on if Dr. Zaidi was the original prescriber to put the patient on it, what it does for the patient and if they have to stay on it because the patient is becoming increasingly aggressive with staff. Patient's PCP stated their testosterone levels were almost normal and they wouldn't normally put the patient on it, but the patient's sister is under the impression the patient was told they need to be on it. Please call to advise. documented in this encounter Plan of Treatment Upcoming Encounters Date Type Department Care Team (Late st Contact Info) Description 09/09/2024 10:20 EST Office Visit [facility] Endocrinology - [address] [id number] Day Littlejohn MD PhD [address] [facility] [address] [place] [address] documented as of this encounter Visit Diagnoses Not on filedocumented in this encounter Care Teams Continuous Dryout Operator Relationship Specialty Start Date End Date Ren V[place] [address] PCP - General 09/30/18 documented as of this encounter
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
--- OUTSIDE RECORDS SUMMARY | 2024-03-05 15:43 | XMS_ITS | Continuity of Care Document ---
Author Organization [place] - [facility] Address [address] [place] [address] Care Team Providers Care Pattern Stamper Name Role Phone [facility] Psychiatrist Assessment No assessment recorded. Plan of Treatment Reminders Order Date Submit Date Provider Last Modified By Organization Details Last Modified Time Details Appointments Annual Wellness Exam 40 2023 11:00A M Not available Not available Not available Lab lipids, total, serum [address] [facility] (Registration ), [address] [place] [address] [place], [address], 03/05/2024 12:21:49 CBC w/ auto diff [address] [facility] (Registration ), [address] [place] [address] [place], [address], 03/05/2024 12:21:49 C-reactiv e protein, quantitat cliff, serum or plasma [address] [facility] (Registration ), [address] [place] [address] [place], [address], 03/05/2024 12:21:49 ESR (erythroc yte sedimenta tion rate), blood [address] [facility] (Registration ), [address] [place] [address] [place], [address], 03/05/2024 12:21:49 CMP, serum or plasma - 1 SST, 1 [employer], 1 LAV [id number] [facility] (Registration ), [address] [place] [address] [place], [address], 03/05/2024 12:21:49 urinalysi s, dipstick [address] [facility] ([facility]), [address] [place] [address] [place], [address], 03/05/2024 12:21:49 TSH, serum, reflex free T4 [address] [facility] (Registration ), [address] [place] [address] [place], [address], 03/05/2024 12:21:49 Referral None recorded. Procedures None recorded. Surgeries None recorded. Imaging None recorded. Medication Orders quetiapin e ER 200 mg tablet,ex tended release 24 hr 2023 024 [facility]-, [address] [place], [address], 03/05/2024 12:23:09 Patient TargetsNo targets recorded. Patient InstructionsNo instructions recorded. Reason for Referral Neurologist Referral for Sei zure disorder Muscle spasms, seizure history, med changes? Pt. 33-M, with PMH notable for cognitive impairment, left hemiparesis, cortical blindness, urine incontinence, dysarthria, epilepsy, trichotillomania, chronic skin picking, and muscle spasm being referred at the request of his psychiatrist Dr. Mccoy at [facility], to consider possible medication changes that may benefit his spasms, mood/agitation/insomnia, and chronic skin picking. Particular requests were1) Could anticonvulsant w/modd stabilizaiton be considered for his seizure type? 2) Are there any new treatments for muscle spasms? 3) Any concerns about adding Gabapentin for aid in anxiety, insomnia, muscle spasms? 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 2016 Problem Code: H47.20; Problem Code Type: ICD-10; Not Available [facility] 3 04:21:52 Gastriti s 2668406 Active 2016 Problem Code: K29.70; Problem Code Type: ICD-10; Not Available [facility] 3 04:21:52 Urinary incontin ence 405735475 Active 2016 Problem Code: R32; Problem Code Type: ICD-10; Not Available [facility] 3 04:21:52 Senile osteopor osis 51186504 Active 201602/22/20 21 - Comments only - [...] M81.0; Problem Code Type: ICD-10; Not Available [facility] 3 04:21:52 Pure hypergly ceridemi a 148294831 Active 201602/27/20 22 - Comments only - Ren Vaz MD - tolerati ng statin. However with elevated LFTs could consider cutting statin dose to see if helps LFTs. Problem Code: E78.1; Problem Code Type: ICD-10; Not Available [facility] 3 04:21:53 History of benign neoplasm of brain 923980233 Active 2016 Problem Code: Z86.011; Problem Code Type: ICD-10; Not Available [facility] 3 04:21:53 Insomnia 278918762 Active 201612/09/19 19 - Deterior ated - Subha Colon BLEND TECHNICIAN - Currentl y on trazodon e, not effectiv e. See above. 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 Cycloben zaprine no longer effectiv e. Will change to baclofen 10mg TID. luncheonette manager will call in 1-2 weeks to report effectiv eness. Pain may be influenc ing increase d agitatio n and poor sleep. Problem Code: M24.50; Problem Code Type: ICD-10; Not Available [facility] 3 04:21:53 Amnesia 15813643 Active 2016 Problem Code: R41.3; Problem Code Type: ICD-10; Not Available [facility] 3 04:21:53 Hemipleg ia 15505104 Active 201602/22/20 21 - Comments only - Ren Vaz MD - Encourag ing increase in activty. I agree with PT. Problem Code: G81.90; Problem Code Type: ICD-10; Not Available [facility] 3 04:21:54 Red blood cell finding 624030362 Active 2017 Problem Code: R71.8; Problem Code Type: ICD-10; Not Available [facility] 3 04:21:54 Retentio n of urine 985984824 Active 201805/18/20 19 - Comments only - Subha Darlene SANTANA - Suscepti ble to UTIs. They will return urine sample for testing. Problem Code: R33.9; Problem Code Type: ICD-10; Not Available [facility] 3 04:21:54 Restless ness and agitatio n 245067908 Active 2018 Problem Code: R45.1; Problem Code Type: ICD-10; Not Available [facility] 3 04:21:54 Seizure 35289671 Active 2018 Problem Code: R56.9; Problem Code Type: ICD-10; Not Available [facility] 3 04:21:54 Dyspnea 849340752 Completed 201806/01/2019 Problem Code: R06.02; Problem Code Type: ICD-10; Not Available [facility] 3 04:21:54 Acute upper respirat ory infectio n 27939552 Completed 201806/01/2019 05/18/20 19 - Comments only - Subha Colon BLEND TECHNICIAN - With low-grad e fever, producti ve cough, wheezing . Pt is quite suscepti ble to both respirat ory and urinary tract infectio ns. Will start doxycycl ine to cover for possible pneumoni a. Advised to increase use of nebulize r to TID. Problem Code: J06.9; Problem Code Type: ICD-10; Not Available [facility] 3 04:21:55 Steatosi s of liver 186126197 Active 201903/03/20 23 - Comments only - Ren Vaz MD - Improved last year with weight loss. REcheck CBC/CMP with labs Problem Code: K76.0; Problem Code Type: ICD-10; Not Available [facility] 3 04:21:55 Adult health examinat ion Active 201903/03/20 23 - Comments only - Ren Vaz MD - Preventi ve care reviewed . He needs routine labs to monitor fatty liver, anemia. BMI had dropped, up slightly this year, discusse d diet/exe rcise He has been doing quite well overall with current supporti ve living/c aregiver s. See below Problem Code: Z00.00; Problem Code Type: ICD-10; Not Available [facility] 3 04:21:55 Bradycar hossein 73230245 Completed 201909/01/2019 08/25/19 20 - Comments only - Ren Vaz MD - Resolved after stopping metoprol ol. BP still okay, no hard indicati on for metoprol ol, so continue off this medicati on. Problem Code: R00.1; Problem Code Type: ICD-10; Not Available [facility] 3 04:21:55 Urticari a 282584027 Active 201908/14/19 21 - Comments only - Ren Vaz MD - irmpoved . continue higher dose H2 gui for now. Problem Code: L50.9; Problem Code Type: ICD-10; Not Available [facility] 3 04:21:55 Localize d eruption of skin 062824486 Completed 201904/26/2020 04/05/20 20 - Comments only - Ricarda Sanchez UTILITIES SERVICE INVESTIGATOR - Unclear etiology : possibly contact urticari a/contac t dermatit is from exposure to laundry detergen t on mattress pad. No red flags on exam; physical exam reassuri ng. VS normal. Prescrib ed triamcin olone cream and cetirizi ne. Discusse d symptoma tic mgmt and preventi on of secondar y bacteria l infectio n. Caregive rs to bring Miguel Angel back for a f/u if symptoms do not improve with treatmen t or if any concerns . Problem Code: R21; Problem Code Type: ICD-10; Not Available [facility] 3 04:21:56 Anemia 212733803 Active 202008/20/19 22 - Comments only - Ren Vaz MD - This has been a stable chronic issue. We discusse d I iron stores actually normal, low TIBC suggests chronic disease cause. Continue to follow. Problem Code: D64.9; Problem Code Type: ICD-10; Not Available [facility] 3 04:21:56 Hypo-osm olality and or hyponatr emia 580869052 Active 202002/22/20 21 - Comments only - Ren Vaz MD - Doing well on fluid restrict ion, continue . Problem Code: E87.1; Problem Code Type: ICD-10; Not Available [facility] 3 04:21:56 Obesity 933072838 Active 2020 Problem Code: E66.9; Problem Code Type: ICD-10; Not Available [facility] 3 04:21:56 Furuncle of left axilla 04539584155 811128 Active 202003/14/20 21 - Comments only - [...] ~8mm incsion over head of abcess, with Migue lAngel's help I was able to express ~2-3ml of pus. Still area of deeper indurati on, but not fluctuan t. I attempte d to explore the abcess to break up adhesion , but he did not tolerate this. Wound cleaned and covered. Will treat with TMP/SMX to treat residual infectio n. cover MRSA. Problem Code: L02.422; Problem Code Type: ICD-10; Not Available [facility] 3 04:21:56 Trichoti rafita 44383795 Active 202102/27/20 22 - Comments only - Ren Vaz MD - Discusse d skin care, defer medicati on adjustme nts to psych Problem Code: F63.3; Problem Code Type: ICD-10; Not Available [facility] 3 04:21:56 Diabetes insipidu s 75559882 Active 201605/24/20 19 - Comments only - Subha Colon APRN - Will recheck sodium level. Problem Code: E23.2; Problem Code Type: ICD-10; Not Available [facility] 3 04:21:57 Hypopitu itarism 07527829 Active 2016 Problem Code: E23.0; Problem Code Type: ICD-10; Not Available [facility] 3 04:21:57 Hypothyr oidism 45803104 Active 201602/22/20 21 - Comments only - Ren Vaz MD - FT4 at goal, continue current supplume ntation Problem Code: E03.8; Problem Code Type: ICD-10; Not Available [facility] 3 04:21:57 History and physical examinat trae, administ rative Completed 201807/09/2019 Problem Code: Z02.89; Problem Code Type: ICD-10; Not Available [facility] 3 04:21:58 Disorder of eye 901883663 Completed 201804/05/2019 Problem Code: H44.89; Problem Code Type: ICD-10; Not Available [facility] 3 04:21:59 Pain of left knee joint 31970544542 4107 Completed 201707/09/2019 Problem Code: M25.562; Problem Code Type: ICD-10; Not Available [facility] 3 04:21:59 Bleeding 454390962 Completed 202002/21/2021 Problem Code: R58; Problem Code Type: ICD-10; Not Available [facility] 3 04:21:59 Fever 701409092 Completed 201804/05/2019 Problem Code: R50.9; Problem Code Type: ICD-10; Not Available [facility] 3 04:21:59 Family history of diabetes mellitus 788287435 Completed 201607/09/2019 Problem Code: Z83.3; Problem Code Type: ICD-10; Not Available [facility] 3 04:22:00 Fever 617366612 Completed 201805/24/2019 Problem Code: R50.9; Problem Code Type: ICD-10; Not Available [facility] 3 04:22:00 Gastroes ophageal reflux disease without esophagi tis 642897781 Completed 201604/02/2023 Problem Code: K21.9; Problem Code Type: ICD-10; Not Available [facility] 3 04:22:00 Wheezing 19977607 Completed 201709/18/2018 Problem Code: R06.2; Problem Code Type: ICD-10; Not Available [facility] 3 04:22:00 High enzyme level in serum 280435706 Completed 201904/02/2023 02/27/20 22 - Comments only [...] R74.8; Problem Code Type: ICD-10; Not Available [facility] 3 04:22:01 Body mass index 30+ - obesity 773841544 Completed 202004/02/2023 Problem Code: Z68.34; Problem Code Type: ICD-10; Not Available [facility] 3 04:22:01 Disorder of intestin e 90327702 Completed 202008/14/2020 Problem Code: K63.9; Problem Code Type: ICD-10; Not Available [facility] 3 04:22:01 Screenin g for disorder Completed 201809/18/2018 Problem Code: Z13.9; Problem Code Type: ICD-10; Not Available [facility] 3 04:22:01 Spasm 99140218 Completed 201704/02/2023 08/25/19 20 - Comments only - Ren Vaz MD - Ongoing problem since CVA. Has neuro consult in october to consiide botox. For now try higher dose lorazepa m along with baclofen . Problem Code: R25.2; Problem Code Type: ICD-10; Not Available [facility] 3 04:22:02 Pain of right knee joint 50794318457 4100 Completed 201704/30/2018 Problem Code: M25.561; Problem Code Type: ICD-10; Not Available [facility] 3 04:22:02 Cough 65925973 Completed 201709/08/2019 Problem Code: R05; Problem Code Type: ICD-10; Not Available [facility] 3 04:22:02 Iron deficien cy anemia 94934733 Completed 201704/02/2023 Problem Code: D50.8; Problem Code Type: ICD-10; NAKIA SANTOS [address], [place], [address] , [facility]. 4 09:14:59 Counseli ng Completed 201812/08/2018 Problem Code: Z71.89; Problem Code Type: ICD-10; Not Available [facility] 3 04:22:03 Disorder of tooth developm ent 039787324 Completed 201808/14/2020 Problem Code: K00.9; Problem Code Type: ICD-10; Not Available [facility] 3 04:22:03 Hypocalc emia 2895336 Completed 201910/25/2019 Problem Code: E83.51; Problem Code Type: ICD-10; Not Available [facility] 3 04:22:03 Hyperosm olality and or hypernat remia 774131443 Completed 201908/14/2020 Problem Code: E87.0; Problem Code Type: ICD-10; Not Available [facility] 3 04:22:04 Testicul ar hypofunc tion 821809384 Completed 201604/02/2023 Problem Code: E29.1; Problem Code Type: ICD-10; Not Available [facility] 3 04:22:04 Seasonal allergic rhinitis 232206276 Completed 201904/02/2023 10/25/19 20 - Comments only - Ren Vaz MD - try H1 block Problem Code: J30.2; Problem Code Type: ICD-10; Not Available [facility] 3 04:22:05 Wheezing 29560674 Completed 201805/24/2019 Problem Code: R06.2; Problem Code Type: ICD-10; Not Available [facility] 3 04:22:05 Seizure 33115596 Completed 201607/09/2019 Problem Code: R56.9; Problem Code Type: ICD-10; Not Available [facility] 3 04:22:05 Chronic excoriat ion of skin 053186512 Active 2023 NAKIA SANTOS [address], [place], [address] , [facility]. 4 09:12:56 Non-alco holic fatty liver disease Active 2023 NAKIA SANTOS [address], [place], [address] , [facility] 4 09:14:30 Iron deficien cy anemia 16601749 Active 2023 Problem Code: D50.8; Problem Code Type: ICD-10; NAKIA SANTOS [address], [place], [address] , [facility] 4 09:14:59 Pruritic disorder 181849650 Active 2023 NAKIA SANTOS [address], [facility] [address] , [facility] 4 09:21:10 Seizure disorder 389392382 Active 2023 NAKIA SANTOS [address], [facility] [address] , [facility] 4 10:59:32 Finding of frequenc y of urinatio n 895409092 Active [address], [facility] [address] , [facility] 4 11:23:00 Notes:*Problem Name: Blindne ss - both eyes *Problem Status: active *Comments: *Problem Code: H54.0 *Problem Code Type: ICD-10 *Note Date: 11/11/2016 Problem Notes None recorded. Medical Equipment None Reported. [...] 2023 active Not Available Not Available Not Avdoroteo garcia Dx: G81.90 - replacem ent for [...] Not Available Not Available Not Avai lable Vitals Date Recorded Body height Body mass index (BMI) Body weight Body temperature Oxygen saturation Oxygen saturation in Arterial blood by Pulse oximetry Heart rate Systolic blood pressure Diastolic blood pressure Provider Name and Address Organization Details Last Updated DateTime 4 167.157 4 cm 33.5 kg/m2 92284.1 8 g 97.7 [degF] 96 % 96 % 83 /min 118 mm[Hg] 82 mm[Hg] KRISTYN SINGH [facility] 4 11:07:26 Social History None recorded. Functional Status None recorded. Mental Status None recorded. Family History Nothing Reported Notes:*Problem: Mom had trever l failure Diabetes in the family Medical History No medical history recorded. Immunizations Vaccine Type Date Status Provider Name and Address Organization Details Recorded Time MMR 07/07/1999 completed Not Available [facility] 04:39:45 MMR 10/06/1991 completed Not Available [facility] 04:39:46 Tdap 09/21/2010 completed Not Available [facility] 04:39:47 Tdap 11/17/2020 completed Not Available [facility] 04:39:48 Influenza, split virus, quadrivalent, PF 05/21/2019 completed Not Available [facility] 05/16/2023 04:39:48 Hib, unspecified formulation 1990 completed Not Available [facility] 05/16/2023 04:39:48 Hib, unspecified formulation 1990 completed Not Available [facility] 05/16/2023 04:39:49 Hib, unspecified formulation 10/06/1991 completed Not Available [facility] 05/16/2023 04:39:49 Hib, unspecified formulation 1990 completed Not Available [facility] 05/16/2023 04:39:49 DTaP 1990 completed Not Available [facility] 04:39:50 DTaP 1990 completed Not Available [facility] 04:39:50 DTaP 10/06/1995 completed Not Available [facility] 04:39:50 DTaP 1990 completed Not Available [facility] 04:39:50 DTaP 03/07/1992 completed Not Available [facility] 04:39:50 COVID-19, mRNA, LNP-S, PF, 100 mcg/0.5mL dose or 50 mcg/0.25mL dose 10/01/2020 completed Not Available [facility] 05/16/20 04:39:50 COVID-19, mRNA, LNP-S, PF, 100 mcg/0.5mL dose or 50 mcg/0.25mL dose 02/26/2022 completed Not Available [facility] 05/16/20 04:39:51 SARS-COV-2 (COVID-19) vaccine, UNSPECIFIED 10/30/2020 completed Not Available [facility] 05/16/2023 04:39:52 SARS-COV-2 (COVID-19) vaccine, UNSPECIFIED 05/18/2021 completed Not Available [facility] 05/16/2023 04:39:52 Hep B, unspecified formulation 10/05/1992 completed Not Available [facility] 05/16/2023 04:39:52 Hep B, unspecified formulation 11/04/1992 completed Not Available [facility] 05/16/2023 04:39:52 Hep B, unspecified formulation 04/06/1993 completed Not Available [facility] 05/16/2023 04:39:52 influenza, unspecified formulation 05/12/2014 completed Not Available [facility] 05/16/2023 04:39:53 polio, unspecified formulation 1990 completed Not Available [facility] 05/16/2023 04:39:53 polio, unspecified formulation 1990 completed Not Available [facility] 05/16/2023 04:39:54 polio, unspecified formulation 10/06/1995 completed Not Available [facility] 05/16/2023 04:39:54 polio, unspecified formulation 1990 completed Not Available [facility] 05/16/2023 04:39:54 polio, unspecified formulation 03/07/1992 completed Not Available [facility] 05/16/2023 04:39:54 rabies, unspecified formulation 01/23/1995 completed Not Available [facility] 05/16/2023 04:39:55 rabies, unspecified formulation 01/27/1995 completed Not Available [facility] 05/16/2023 04:39:55 Influenza, split virus, quadrivalent, PF 04/21/2023 completed Not Available [facility] 07/18/2023 05:33:06 COVID-19, mRNA, LNP-S, PF, kota-sucrose, 30 mcg/0.3 mL 04/21/2023 completed Not Available [facility] 07/18/2023 05:33:07 Past Encounters Encounter ID Performer Location Encounter Start Date Encounter Closed Date Diagnosis/Indication Diagnosis SNOMED-CT Code Diagnosis ICD10 Code [id number] NAKIA SANTOS [address] [place] [address] 03/05/2024 10:55:01 03/05/2024 12:03:04 Finding of frequency of urination 571262842 R35.0 Restlessne ss and agitation 139761685 R45.1 Adult heal th examination 859693499 Z00.00 Hyperlipid emia screening 362716616 Z13.220 Hypothyroidism 17996483 E03.9 Health Concerns Section Related Observation LastModified by Organization Detai ls LastModified Time None Recorded Concern Status LastModified by Organization Details LastModified Time None Recorded Payers Encounter Date Sequence Insurance Name Policy Number Policy Soliman Covered Member ID Soliman Member ID Guarantor Name 03/05/2024 1 [facility] ([facility] Miguel Angel Burgos [id number] Miguel Angel Burgos Notes Date Note Type Note Provider Name and Address Organization Details Recorded Time 03/05/2024 text/html HPI Notes: Pt. 3 3-M, [...] Cardiac: Pt. 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 denies any MSK complaints. Skin:Skin improved over prior per caregiver report Neuro: No loss of function apparent to caregiver in ambulation status. Endocrine: Caregiver denies new pattern of cold or hot manifestation in patient Hematologic: No frequent bleeding, epistaxis, easy bruisability reported by caregiver. NAKIA SANTOS [address], [place], [address], [facility]. 03/05/2024 12:22:56
--- OUTSIDE RECORDS SUMMARY | 2024-03-05 15:43 | XMS_ITS | Encounter Summary ---
Author Organization [facility] Address [address] [place] [address] Care Team Providers Care Commodity Lead Name Role Phone Ren Vaz MD Primary Care Provider [phone] Encounter Details Date Type Department Care Team (Late st Contact Info) Description 08/09/2019 Lab Requisition [facility] Pathology & Laboratory Medicine - [facility] [address] [place] [address] Mary Jo Eldridge, DO [address] [place], [place] [id number] Vomiting, unspecified; Adult hypertrophic pyloric stenosis; Unspecified convulsions (HCC-CMS); Hypopituitarism (HCC-CMS); Cramp and spasm; Gastro-esophageal reflux disease without esophagitis; Diabetes insipidus (HCC-CMS); Fever, unspecified; Other specified health status; Transient alteration of awareness; Unspecified intracranial injury with loss of consciousness of unspecified duration, initial encounter ([facility]); Other gastritis without bleeding Social History Tobacco Use Types Packs/Day Years [...] Yes 10/01/2018 Cognitive Status Response Date of Assess ent Because of a physical, menta l, or emotional condition, does this person have serious difficulty concentrating, remembering, or making decisions? Yes 10/01/2018 documented as of this encounter Plan of Treatment Upcoming Encounters Date Type Department Care Team (Late st Contact Info) Description 09/09/2024 10:20 EST Office Visit [facility] Endocrinology - [facility] [address] [place] [address] Day Littlejohn MD PhD [address] [facility] [address] [place] [address] documented as of this encounter Procedures Procedure Name Priority Date/Time Associated Diagnosis Comments SURGICAL PATHOLOGY Today 08/08/2019 14 :49 EST Vomiting, unspecified Adult hypertrophic pyloric stenosis Unspecified convulsions (HCC-CMS) Hypopituitarism ([facility]) Cramp and spasm Gastro-esophageal reflux disease without esophagitis Diabetes insipidus (HCC-CMS) Fever, unspecified Other specified health status Transient alteration of awareness Unspecified intracranial injury with loss of consciousness of unspecified duration, initial encounter ([facility]) Other gastritis without bleeding documented in this encounter Results * SURGICAL PATHOLOGY (08/08/2019 14:49 EST) Final Diagnosis A. STOMACH, GREATER CURVATURE, BIOPSY: - Ulcerated congested oxyntic and transitional mucosa with reactive gastropathy. - Negative for evidence of Helicobacter pylori on H&E. 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 - Marked reactive/ reparative epithelial change; negative for definite dysplasia. B. GE JUNCTION, BIOPSY: - Squamous and columnar mucosa with features of reflux esophagitis. - Foveolar Hyperplasia and pancreatic acinar mataplasia; negative for definite intestinal metaplasia or dysplasia. - Marked reactive/ reparative epithelial change; negative for definite dysplasia. - Organisms compatible with sarcina noted. 08/18/2019 12:07 EST [facility] at 1207 Diagnosis Comment Iron stain is negative for iron deposition (A2). 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 Clinical correlation is recommended. 08/18/2019 12:07 [facility] Clinical History Gastric outlet obstruction 08/18/2019 12:07 [facility] Attestation By the signature below, the attending physician certifies that they have personally conducted a gross and/or microscopic examination of the described specimens and rendered or confirmed the above diagnosis. 08/18/2019 12:07 [facility] at 1207 Gross Description A. Received in formalin labelled with proper patient identification (initials B, R) and raw area greater curve are 4 fragments of orozco-brown soft tissue (ranging from 0.3 cm to 0.5 cm in greatest dimension). The specimen is submitted in toto in A 1-A2. B. Received in formalin labelled with proper patient identification (initials B, R) and GE junction are 2 fragments of orozco-white soft tissue (0.2 x 0.2 x 0.2 cm and 0.3 x 0.2 x 0.2 cm). The specimen is submitted in toto in B1. Candice Shafferuc 08/09/2019 16:08 08/18/2019 12:07 [facility] Scanned Images 08/18/2019 12:07 [facility] Tissue ENTIRE STOMACH / Unknown 08/08/2019 14:49 EST 08/09/2019 15:52 EST Tissue specimen (specimen) STOMACH STRUCTURE / Unknown 08/08/2019 14:49 EST 08/09/2019 15:52 EST Mary Jo Eldridge DO PATHOLOGY ORDERABLES [facility] [address] [place] [address] documented in this encounter Visit Diagnoses Diagnosis Vomiting, unspecified Adult hypertrophic pyloric stenosis Acquired hypertrophic pyloric stenosis Unspecified convulsions (HCC-CMS) Hypopituitarism (HCC-CMS) Panhypopituitarism Cramp and spasm Gastro-esophageal reflux disease without esophagitis Esophageal reflux Diabetes insipidus ([facility]) Diabetes insipidus Fever, unspecified Other specified health status Transient alteration of awareness Unspecified intracranial injury with loss of consciousness of unspecified duration, initial encounter ([facility]) Other gastritis without bleeding documented in this encounter Care Teams Commodity Lead Relationship Specialty Start Date End Date Ren Vaz MD [address] [place] [address] PCP - General 09/30/18 documented as of this encounter
--- OUTSIDE RECORDS SUMMARY | 2024-03-05 15:44 | XMS_ITS | Encounter Summary ---
Author Organization [facility] Address [address] [place] [address] Care Team Providers Care Gym Supervisor Name Role Phone Yossi Torres MD Primary Care Provider [phone] Reason for Visit * Reason Onset Date Comments Medications Refill 08/29/2014 Encounter Details Date Type Department Care Team (Late st Contact Info) Description 08/29/2014 Refill [facility] Endocrinology - [facility] [address] [place], [place] [id number] Wilder Zaidi, [address] [facility] [address] [place] [address] Medications Refill Social History Tobacco Use Types Packs/Day Years Used Date Smoking Tobacco: Never Smokeless Tobacco: Never Alcohol Use Standard Drinks/Week Comments No 0 (1 standard drink = 0.6 oz pur e alcohol) Sex and Gender Information Value Date Recorded Sex Assigned at Not on file Gender Identity Not on file Sexual Orientation Not on file documented as of this encounter Ordered Prescriptions Prescription Sig Dispensed Refills Start Date End Da te testosterone (ANDROGEL) 20.25 mg/1.25 gram (1.62 %) transdermal gel pumpIndications:Panhypop ituitarism (HCC-CMS) Apply 1 pump actuation topically daily Daily Max: 20.25 mg 75 g 3 08/29/2014 11/08/2014 documented in this encounter Miscellaneous Notes * Telephone Encounter - Belgica Chavez - 09/02/2014 0950 EST Androgel refill phoned in to pharmacy [facility] [place]. Androgel 1.62%, apply 1 pump daily #75gm with 3 refills. * Telephone Encounter - Shruti Michael, RN - 08/29/2014 1500 EST Refill request for androgel. Last visit 08/04/14, next visit 03/27/15. Last fill 02/03/14. Refill doneper protocol. documented in this encounter Plan of Treatment Upcoming Encounters Date Type Department Care Team (Late st Contact Info) Description 09/09/2024 10:20 EST Office Visit [facility] Endocrinology - [address] [address] Day Littlejohn MD PhD [address] [place] [address] [address] [place] [address] documented as of this encounter Visit Diagnoses Diagnosis 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[facility])- Primary Panhypopituitarism documented in this encounter Discontinued Medications Medication Sig Discontinue Reason Start Date End Da te testosterone (ANDROGEL) 20.25 mg/1.25 gram (1.62 %) transdermal gel pump Apply 1 pump actuation topically daily. Reorder 02/03/2014 08/29/2014 documented as of this encounter Care Teams Gym Supervisor Relationship Specialty Start Date End Date Yossi Torres MD [address] [place] [address] [address] [place] [phone] PCP - General 04/17/11 03/14/16 documented as of this encounter
--- OUTSIDE RECORDS SUMMARY | 2024-03-05 15:44 | XMS_ITS | Encounter Summary ---
Author Organization [facility] Address [address] [place] [address] Care Team Providers Care Alteration Tailor Apprentice Name Role Phone Emilee Cody MD Primary Care Provider + Ren Vaz MD Primary Care Provider Reason for Visit * Reason Onset Date Comments Medications Refill 08/07/2017 Encounter Details Date Type Department Care Team (Late st Contact Info) Description 08/07/2017 Refill [facility] Endocrinology [address] [address] Carlito Paul MD [address] [place] [address] [place] [address] Medications Refill Social History Tobacco Use Types Packs/Day Years Used Date Smoking Tobacco: Never Smokeless Tobacco: Never Alcohol Use Standard Drinks/Week Comments No 0 (1 standard drink = 0.6 oz pur e alcohol) Sex and Gender Information Value Date Recorded Sex Assigned at Not on file Gender Identity Not on file Sexual Orientation Not on file documented as of this encounter Plan of Treatment Upcoming Encounters Date Type Department Care Team (Late st Contact Info) Description 09/09/2024 10:20 EST Office Visit [address] [id number] Day Littlejohn MD PhD [address] [place] [address] [address] [place] [address] documented as of this encounter Visit Diagnoses Not on filedocumented in this encounter Care Teams Alteration Tailor Apprentice Relationship Specialty Start Date End Date Emilee Cody MD PCP - General 03/15/16 09/29/18 Ren Vaz MD [facility] [place] [address] PCP - General 09/30/18 documented as of this encounter
--- OUTSIDE RECORDS SUMMARY | 2024-03-05 15:44 | XMS_ITS | Encounter Summary ---
Author Organization [facility] Address [address] [place] [address] Care Team Providers Care Dope Mixer Name Role Phone Emilee Cdoy MD Primary Care Provider + Reason for Visit * Reason Onset Date Comments Discuss Test Results 06/25/201606/21 @[facility] Discuss Test Results 06/25/2016 Sodium Results 07/04/2016 Encounter Details Date Type Department Care Team (Late st Contact Info) Description 06/25/2016 Telephone [facility] Endocrinology - [facility] [address] [place] [address] Wilder Zaidi DO [address] [facility] [address] [place] [address] Discuss Test Results (06/21 [facility]); Discuss Test Results (Sodium); Results Social History Tobacco Use Types Packs/Day Years Used Date Smoking Tobacco: Never Smokeless Tobacco: Never Alcohol Use Standard Drinks/Week Comments No 0 (1 standard drink = 0.6 oz pur e alcohol) Sex and Gender Information Value Date Recorded Sex Assigned at Not on file Gender Identity Not on file Sexual Orientation Not on file documented as of this encounter Miscellaneous Notes * Telephone Encounter - Jennifer Au RN - 07/10/2016 1533 EST Spoke to Jess[place] and relayed Dr. Pa recommendation to recheck labs in 3 months./JOSE * Telephone Encounter - Wilder Zaidi DO - 07/10/2016 1431 EST No change. Sodium in normal range. Recheck in 3 moths or if there is change in behavior or clinicalstatus. * Telephone Encounter - Jennifer Au RN - 07/10/2016 1317 EST Called [facility] looking for latest sodium labs from 07/09. Sodium remains at 140. * Telephone Encounter - Jennifer Au RN - 07/08/2016 1009 EST Spoke with - at [place], confirming that Miguel Angel is on fluid restrictions of 110 ounces daily. Willhave sodium drawn tomorrow at [facility]. /JOSE * Telephone Encounter - Wilder Zaidi DO - 07/08/2016 0948 EST Retest sodium. Call [place] Chavez with results. Please have them confirm current fluid restrictions * Telephone Encounter - Jennifer Au RN - 07/04/2016 1204 EST Spoke with Lali letting her know that weare in receipt of his latest sodium level and will be in touch with them next week regarding sodium testing when Dr. Zaidi comes back from vacation./JOSE * Telephone Encounter - Maxine Roy - 07/04/2016 0927 EST Lali @[facility] states his sodium level was drawn on 06/21 @[facility] and was at 140. Requesting Dr[address] Pa advice as to when to re-test. * Telephone Encounter - AvisedenilsonPatrica - 07/03/2016 1501 EST Lali calling for Sodium test result. Please call. * Telephone Encounter - Maxine Roy - 06/25/2016 0900 EST Jose Manuel checking to see if the pt's lab results from 06/21 have been received from [facility]. documented in this encounter Plan of Treatment Upcoming Encounters Date Type Department Care Team (Late st Contact Info) Description 09/09/2024 10:20 EST Office Visit [facility] Endocrinology - [address] [phone] Day Littlejohn MD PhD [address] [place] [address] [address] [place] [phone] documented as of this encounter Visit Diagnoses Not on filedocumented in this encounter Care Teams Dope Mixer Relationship Specialty Start Date End Date Emilee Cody MD PCP - General 03/15/16 09/29/18 documented as of this encounter
--- OUTSIDE RECORDS SUMMARY | 2024-03-05 15:44 | XMS_ITS | Encounter Summary ---
Author Organization [facility] Address [address] [place] [address] Care Team Providers Care Bean Roaster Name Role Phone Emilee Cody MD Primary Care Provider + Reason for Visit * Reason Onset Date Comments Prior Auth, Medication 07/12/2016 Levothyro xine 150 mcg needs 30 day overide thru Insurance Encounter Details Date Type Department Care Team (Late st Contact Info) Description 07/12/2016 Telephone [facility] Endocrinology - [facility] [address] [place] [address] Wilder Zaidi, [address] [facility] [address] [place] [address] Prior Auth, Medication (Levothyroxine 150 mcg needs 30 day overide thru Insurance) Social History Tobacco Use Types Packs/Day Years [...] encounter Miscellaneous Notes * Telephone Encounter - Saud Bundyia - 07/15/2016 1403 EST Rcvd fax from [place] MEdicaid with APPROVAL for: Drug NDC # and Name: [id number] - LEvothyroxin tab 150 mcg Tracking #: [id number] PA #: [id number] Dates: 07/15/2016 - 07/15/2017 Qty / Days Supply Restrictions: 30.0 / 30 [place] Medicaid ID #: [id number] Called pharmacy - they already rcvd notice and script has been picked up. * Telephone Encounter - Lucía Bundy - 07/15/2016 1155 EST Completed [place] Medicaid [place] Request form and e-filed using [facility] to initiate this process. * Telephone Encounter - Noe Wells - 07/12/2016 1648 EST Reason for Call: Prior Auth, Medication (Levothyroxine 150 mcg) Summary/Symptoms: Levothyroxine 150 mcg needs 30 day over ride as they blister pack and can't blister pack 90 days Noe Wells 07/12/2016 16:48 documented in this encounter Plan of Treatment Upcoming Encounters Date Type Department Care Team (Late st Contact Info) Description 09/09/2024 10:20 EST Office Visit [facility] Endocrinology - [address] [address] Day Littlejohn MD PhD [address] [place] [address] [address] [place] [phone] documented as of this encounter Visit Diagnoses Not on filedocumented in this encounter Care Teams Bean Roaster Relationship Specialty Start Date End Date Emilee Cody MD PCP - General 03/15/16 09/29/18 documented as of this encounter
--- OUTSIDE RECORDS SUMMARY | 2024-03-05 15:44 | XMS_ITS | Encounter Summary ---
Author Organization [facility] Address [address] [place] [address] Care Team Providers Care Access Consultant Name Role Phone Emilee Cody MD Primary Care Provider + Reason for Visit * Reason Comments Pituitary Abnormality Encounter Details Date Type Department Care Team (Latest Contact Info) Description 10/31/2016 13:20 EDT Office Visit [facility] Endocrinology - [facility] [address] [place], [place] [phone] Wilder Zaidi, [address] [facility] [address] [place] [address] 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HCC-CMS) (Primary Dx); 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CMS-HCC) (HCC-CMS) Social History Tobacco Use Types Packs/Day Years [...] Sign Reading Time Taken Comments Blood Pressure 113/77 10/31/2016 1329 EDT Pulse 72 10/31/2016 1329 EDT Temperature - - Respiratory Rate - - Oxygen Saturation - - Inhaled Oxygen Concentration - - Weight 77.7 kg (171 lb 4.8 oz) 10/31/2016 1329 E DT Height 170.2 cm (5' 7.01) 10/31/2016 1329 EDT Body Mass Index 26.82 10/31/2016 1329 EDT documented in this encounter Patient Instructions * Patient Instructions* Wilder Zaidi DO - 10/31/2016 13:20 EDT 1. No change in dose 2. Continue to monitor sodium levels as scheduled 3. Follow-up in one year documented in this encounter Progress Notes * Wilder Zaidi, - 10/31/2016 1320 EDT SUBJECTIVE: Mr Miguel Angel Burgos is a 26-year-old male who returns to the endocrine clinic today for 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 Miguel Angel was accompanied by the assistant pressman of his fdc. He has been living with 2 other roommates in a therapy dog. Appearsto be doing extremely well. This is the most interactive I seen Miguel Angel in any visit in the many years I been taking care of him. ?? With regards to his secondary adrenal insufficiency, he takes hydrocortisone 20 mg in the morning, 10 mg in the afternoon and 10 mg in the evening. His weight has remained stable. It is up somewhat today, but he was wearing his boots when he was weighed. Appetite is reportedly stable if not increased. No complaints of nausea or emesis. His energy level has been reportedly unchanged. No need to str ess dose. His butt presser was able to articulate how and when they would stress dose steroids. ?? With regards to his secondary hypogonadism, currently on AndroGel 1% 3 pumps daily. He has had low-normal levels of testosterone in the past, but any attempt to increase his AndroGel has caused significant agitation and irritation, so we are maintaining him on a low dose of testosterone to help protect his bones, perhaps derive some energy for him. No significant change in urinary pattern. He is currently on110 ounces of fluids per day. His most recent sodium was 138 drawn on 10/04/2016. He has no significant changes in his bowels. He does not appear to have any temperature intolerance, although it is difficult to tell in this patient. He doesnot answer those type of questions. He is currently on levothyroxine daily (150 mcg). They give it to him first thing in the morning on an empty stomach. His diabetes insipidus, he is currently on 0.05 mg of DDAVP 3 times a day. He occasionally will have some wetness on his chucks when he wakes up,but does not appear to have significant breakthrough polyuria during the evening. They get the patient up every 2-3 hours during the night where he will sometimes urinate. Urine is described as yellowish to sometimes clear. No significant polyuria polydipsia or increased thirst during the day. No significant changes in his mood. ?? PAST MEDICAL HISTORY: Reviewed as documented in electronic medical record. ?? MEDICATIONS: Reviewed as documented in electronic medical record. ?? ALLERGIES: Reviewed as documented in electronic medical record. ?? OBJECTIVE: Physical exam: BP 113/77 Pulse 72 Ht 170.2 cm (67.01) Wt 77.7 kg (171 lb 4.8 oz) BMI 26.82 kg/m2. In general, patient is a 26-year-old male in no acute distress. HEENT: Eyes: There does not appear to be any lid lag or periorbital edema noted. Mouth: Mucous [...] quadrants. Extremities: No clubbing, cyanosis or edema. Strengthis 5/5 and equal bilaterally without proximal muscle weakness. Integument: AndroGel application sites are without irritation or erythema. Psych: The patient was much more interactive at today's visitwith this provider. Mood seems stable. ?? LABORATORY DATA: Obtained at [facility] on 10/04/2016 showed a sodium of 138. Free T4 drawn on 10/04/2016 was 1.0. Hematocrit drawn on 10/04/2016 was 48. ?? ASSESSMENT: 1. Mr Miguel Angel Burgos is a 26-year-old male with panhypopituitarism and central diabetes insipidus [...] his current dose of DDAVP. Continue on 110 ounces of fluids per day. Call with any questions or concerns. b. Secondary hypothyroidism. Appears clinically and biochemically euthyroid. Continue current dose of levothyroxine. c. Secondary adrenal insufficiency. The patient continues to have relatively high-dose of hydrocortisone approximately 40 mg per day. His weight has been stable. He does not appear to have any symptoms of over or under replacement of his steroids. We discussed stress dosing in times of illness. They also have injectable steroids at home if unable to tolerate his oral medications. d. Secondary hypogonadism. Will continue on current [...] of levothyroxine. 3. Continue current dose of hydrocortisone. 4. Stress dose when needed. 5. We will see him back in one year. documented in this encounter Plan of Treatment Upcoming Encounters Date Type Department Care Team (Late st Contact Info) Description 09/09/2024 10:20 EST Office Visit [facility] Endocrinology - [address] [address] Day Littlejohn MD PhD [address] [place] [address] [address] [place] [address] documented as of this encounter Visit Diagnoses Diagnosis 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HCC-CMS)- Primary Panhypopituitarism 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HCC-CMS) Diabetes insipidus documented in this encounter Historical Medications * This list may reflect changes made after this encounter. Medication Sig Dispensed Refills Start Date End Date omeprazole (PRILOSEC) 20 mg capsule Take 2 Capsules by mouth daily. added in this encounter Care Teams Access Consultant Relationship Specialty Start Date End Date Emilee Cody MD PCP - General 03/15/16 09/29/18 documented as of this encounter
--- OUTSIDE RECORDS SUMMARY | 2024-03-05 15:44 | XMS_ITS | Encounter Summary ---
Author Organization [facility] Address [address] [place] [address] Care Team Providers Care Automatic Data Processing Planner Name Role Phone Yossi Torres MD Primary Care Provider [phone] Reason for Visit * Reason Onset Date Comments Results 08/04/2014 Encounter Details Date Type Department Care Team (Late st Contact Info) Description 08/04/2014 Telephone [facility] - [facility] [address] [place] [address] Wilder Zaidi, [address] [facility] [address] [place] [address] Results Social History Tobacco Use [...] encounter Miscellaneous Notes * Telephone Encounter - Yulia Romero - 08/04/2014 1603 EST Bettina calling to get test results from lab work done today. documented in this encounter Plan of Treatment Upcoming Encounters Date Type Department Care Team (Late st Contact Info) Description 09/09/2024 10:20 EST Office Visit [facility] Endocrinology [facility] [address] [place] [address] Day Littlejohn MD PhD [address] [facility] [address] [place] [address] documented as of this encounter Visit Diagnoses Not on filedocumented in this encounter Care Teams Automatic Data Processing Planner Relationship Specialty Start Date End Date Yossi Torres MD [address] [place] [address] [address] [place] [address] PCP - General 04/17/11 03/14/16 documented as of this encounter
--- OUTSIDE RECORDS SUMMARY | 2024-03-05 15:44 | XMS_ITS | Encounter Summary ---
Author Organization [facility] Address [address] [place] [address] Care Team Providers Care Force Dispatcher Name Role Phone Yossi Torres MD Primary Care Provider [phone] Emilee Cody MD Primary Care Provider + Reason for Visit * Reason Onset Date Comments Results 08/05/2014 Encounter Details Date Type Department Care Team (Late st Contact Info) Description 08/05/2014 Telephone [facility] Endocrinology - [facility] [address] [place] [address] Wilder Zaidi DO 62 [facility] [address] [place] [address] Results Social History Tobacco Use [...] encounter Miscellaneous Notes * Telephone Encounter - Georgia Rice RN - 08/05/2014 1317 EST Received faxed lab results from [facility] Sodium--145 Range (137-145) * Telephone Encounter - Wilder Zaidi DO - 08/05/2014 1137 EST Spoke with Bettina. Repeat sodium today was 133. Advised Bettina to continue current dose of DDAVP (1/2 tab of 0.1 three times a day) and reduce fluid intake to 50 oz until Friday. Recheck sodium on Friday. documented in this encounter Plan of Treatment Upcoming Encounters Date Type Department Care Team (Late st Contact Info) Description 09/09/2024 10:20 EST Office Visit [facility] Endocrinology - [address] [address] Day Littlejohn MD PhD [address] [place] [address] [address] [place] [address] documented as of this encounter Visit Diagnoses Not on filedocumented in this encounter Care Teams Force Dispatcher Relationship Specialty Start Date End Date Yossi Torres MD [address] [place] [address] [phone] PCP - General 04/17/11 03/14/16 Emilee Cody MD [address] [place] [address] [address] [place] [phone] PCP - General 03/15/16 09/29/18 documented as of this encounter
--- OUTSIDE RECORDS SUMMARY | 2024-03-05 15:44 | XMS_ITS | Encounter Summary ---
Author Organization [facility] Address [address] [place] [address] Care Team Providers Care Communications Technician Name Role Phone Yossi Torres MD Primary Care Provider [phone] Emilee Cody MD Primary Care Provider + Reason for Visit * Reason Onset Date Comments Results 01/19/2015 Medication Management 01/19/2015 Encounter Details Date Type Department Care Team (Late st Contact Info) Description 01/19/2015 Telephone [facility] Endocrinology - [facility] [address] [place] [address] Wilder Zaidi, 62 [facility] [address] [place] [address] Results; Medication Management Social History Tobacco Use Types Packs/Day Years [...] * Telephone Encounter - Belg[place] Chavez - 01/19/2015 1314 EDT Left message to call back. * Telephone Encounter - Alicia Chi - 01/19/2015 1151 EDT Reason for Call: Results and Medication Management Summary/Symptoms: Please call assisted and speak to Jonatan or Lali. They have questions about Fluid restriction for Miguel Angel. Requesting call back today when a moment. Alicia Chi 01/19/2015 11:52 * Telephone Encounter - Wilder Zaidi DO - 01/19/2015 1133 EDT Please contact patient via phone. [facility] . Advise patient's caretakers that his sodium wasnormal at 141. Please continue current dose of DDAVP and fluid restriction. Repeat sodium and 14 days documented in this encounter Plan of Treatment Upcoming Encounters Date Type Department Care Team (Late st Contact Info) Description 09/09/2024 10:20 EST Office Visit [facility] Endocrinology - [address] [phone] Day Littlejohn MD PhD [address] [place] [address] [place] [address] documented as of this encounter Visit Diagnoses Not on filedocumented in this encounter Care Teams Communications Technician Relationship Specialty Start Date End Date Yossi Torres MD [address] [place] [address] DR BU[address]O [address] [place] [phone] PCP - General 04/17/11 03/14/16 Emilee Cody MD [address] [place] [address] [address] [place] [phone] PCP - General 03/15/16 09/29/18 documented as of this encounter
--- OUTSIDE RECORDS SUMMARY | 2024-03-05 15:44 | XMS_ITS | Encounter Summary ---
Author Organization [facility] Address [address] [place] [address] Care Team Providers Care Fiberglass Pipe Covering Supervisor Name Role Phone Yossi Torres MD Primary Care Provider [phone] Reason for Visit * Reason Onset Date Comments Discuss Test Results 10/19/2015 Lab work Encounter Details Date Type Department Care Team (Late st Contact Info) Description 10/19/2015 Telephone [facility] Endocrinology - [facility] [address] [place] [address] Wilder Zaidi DO 62 [facility] [address] [place] [address] Discuss Test Results (Lab work) Social History Tobacco Use Types Packs/Day Years [...] Telephone Encounter - Georgia Rice RN - 10/19/2015 1537 EDT Phone call to Krissy Informed her of Dr. Zaidi's review, and message below. Verbalizes understanding with no barriers. * Telephone Encounter - Wilder Zaidi DO - 10/19/2015 1255 EDT Please contact pt's facility. No change in DDAVP or fluid prescription. Recheck sodium in 6-8 weeksor if there is any change in patient's symptoms * Telephone Encounter - Georgia Rice, RN - 10/19/2015 1141 EDT Phone call to [facility] [place] Faxing results from 10/17/15 Sodium 140 (136-145) * Telephone Encounter - Josefina Rivera - 10/19/2015 1041 EDT Reason for Call: Discuss Test Results Summary/Symptoms: Lali Walker from [facility] is wanting the lab results for this patient. Please call back. Spoke with Georgia and results were not in yet. Josefina Rivera 10/19/2015 10:41 documented in this encounter Plan of Treatment Upcoming Encounters Date Type Department Care Team (Late st Contact Info) Description 09/09/2024 10:20 EST Office Visit [facility] Endocrinology - [address] [address] Day Littlejohn MD PhD [address] [facility] [address] [place] [address] documented as of this encounter Visit Diagnoses Not on filedocumented in this encounter Care Teams Fiberglass Pipe Covering Supervisor Relationship Specialty Start Date End Date Yossi Torres MD [address] [place] [address] [address] [place] [phone] PCP - General 04/17/11 03/14/16 documented as of this encounter
--- OUTSIDE RECORDS SUMMARY | 2024-03-05 15:44 | XMS_ITS | Encounter Summary ---
Author Organization [facility] Address [address] [place] [address] Care Team Providers Care Traffic Sign Supervisor Name Role Phone Emilee Cody MD Primary Care Provider + Reason for Visit * Reason Onset Date Comments Update 04/09/2016 standing medicat ion form Encounter Details Date Type Department Care Team (Late st Contact Info) Description 04/09/2016 Telephone [facility] Endocrinology - [facility] [address] [place] [address] Wilder Zaidi, 62 [facility] [address] [place] [address] Update (standing medication form) Social History Tobacco Use Types Packs/Day Years [...] encounter Miscellaneous Notes * Telephone Encounter - Josefina Rivera - 04/09/2016 1124 EDT Reason for Call: Update (standing medication form) Summary/Symptoms: Lali from [facility] is calling to discuss a prescription that should harpreet standing order. Every time the patient gets ill they increase her dosage, so she thought it wouldbe nice to have on file. Lali would like a call back. Josefina Rivera 04/09/2016 11:24 documented in this encounter Plan of Treatment Upcoming Encounters Date Type Department Care Team (Late st Contact Info) Description 09/09/2024 10:20 EST Office Visit [facility] Endocrinology - [facility] [address] [place] [address] Day Littlejohn MD PhD [address] [place] [address] [address] [place] [address] documented as of this encounter Visit Diagnoses Not on filedocumented in this encounter Care Teams Traffic Sign Supervisor Relationship Specialty Start Date End Date Emilee Cody MD PCP - General 03/15/16 09/29/18 documented as of this encounter
--- OUTSIDE RECORDS SUMMARY | 2024-03-05 15:44 | XMS_ITS | Encounter Summary ---
Author Organization [facility] Address [address] [place] [address] Care Team Providers Care Combination Man Name Role Phone Yossi Torres MD Primary Care Provider [phone] Reason for Visit * Reason Onset Date Comments Prior Auth, Medication 03/15/2015 Androgel Encounter Details Date Type Department Care Team (Late st Contact Info) Description 03/15/2015 Telephone [facility] Endocrinology - [facility] [address] [place] [address] Wilder Zaidi, 62 [facility] [address] [place] [address] Prior Auth, Medication (Androgel) Social History Tobacco Use Types Packs/Day Years [...] encounter Miscellaneous Notes * Telephone Encounter - BrandenRichDina - 03/15/2015 1631 EDT Rec'd incoming fax with APPROVAL for: Androgel Gel 1.62%, 150/30 days Drug [facility]#: [id number] Tracking Number: [id number] Dates: 03/15/2015 to 03/15/2016 PA #: [id number] Called pharmacy & left message with patients sister that androgel has been approved. * Telephone Encounter - TrumansburgRoxyLucía - 03/15/2015 1453 EDT Rcvd fax from pharmacy requesting PA for Androgel - completed [place] Medicaid PA Form using [employer] and e-filed to initiate process. documented in this encounter Plan of Treatment Upcoming Encounters Date Type Department Care Team (Late st Contact Info) Description 09/09/2024 10:20 EST Office Visit [facility] Endocrinology - [address] [address] Day Littlejohn MD PhD 62 [facility] [address] [place] [address] documented as of this encounter Visit Diagnoses Not on filedocumented in this encounter Care Teams Combination Man Relationship Specialty Start Date End Date Yossi Torres MD [address] [place] [address] [facility] [address] [place] [phone] PCP - General 04/17/11 03/14/16 documented as of this encounter
--- OUTSIDE RECORDS SUMMARY | 2024-03-05 15:44 | XMS_ITS | Encounter Summary ---
Author Organization [facility] Address [address] [place] [address] Care Team Providers Care Copy And Print Associate Name Role Phone Yossi Torres MD Primary Care Provider [phone] Reason for Visit * Reason Onset Date Comments Labs Only 01/10/2015 Returning Call 01/10/2015 [place] Encounter Details Date Type Department Care Team (Late st Contact Info) Description 01/10/2015 Telephone [facility] Endocrinology - [facility] [address] [place] [address] Wilder Zaidi, 62 [facility] [address] [place] [address] Labs Only; Returning Call ([place]) Social History Tobacco Use Types Packs/Day Years [...] encounter Miscellaneous Notes * Telephone Encounter - Jen Sanchez - 01/10/2015 1619 EDT Reason for Call: Labs Only and Returning Call Summary/Symptoms: Pt's sister Bettina calling [place] back. States please leave detailed message as sheis at work. Onset and Duration? 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 They did increase his fluids to 70 oz on 01/02/15. Today they will increase to 80 oz and retest his sodium on 01/17/15. I left a message for bettina as well. * Telephone Encounter - Wilder Zaidi DO - 01/10/2015 1324 EDT Increase fluid restriction to 80 ounces daily. Confirm they already increased from 60 to 70 ounces.Repeat sodium in 7 days. * Telephone Encounter - ChavezBelgica harmon - 01/10/2015 1313 EDT Telephone call to [facility] lab. It was in fact 145 on 01/09/15. * Telephone Encounter - Addie Burgess - 01/10/2015 1301 EDT Reason for Call: Labs Only Summary/Symptoms: Pt's sister calling in regards to pt's high sodium. Sodium is 145 and wondering if they can increase fluids. 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
--- OUTSIDE RECORDS SUMMARY | 2024-03-05 15:44 | XMS_ITS | Encounter Summary ---
Author Organization [facility] Address [address] [place] [address] Care Team Providers Care Dba Developer Name Role Phone Yossi Torres MD Primary Care Provider [phone] Reason for Visit * Reason Onset Date Comments Results 05/02/2015 Encounter Details Date Type Department Care Team (Late st Contact Info) Description 05/02/2015 Telephone [facility] Endocrinology - [facility] [address] [place] [address] Wilder Zaidi DO 62 [facility] [address] [place] [address] Results Social History Tobacco Use [...] * Telephone Encounter - Belg[place] Chavez - 05/03/2015 0901 EDT Left detailed message for jason strickland at [facility]. She will call back if any questions. * Telephone Encounter - Wilder Zaidi DO - 05/02/2015 2147 EDT Please contact the facility where Miguel Angel is residing. Most recent sodium obtained on 05/01/2015 was normal at 138. He should continue his current dose of DDAVP and fluid restriction. I would like to repeat his sodium level in 2 weeks to make sure stable. If he has any behavioral changes we should consider earlier recheck. documented in this encounter Plan of Treatment Upcoming Encounters Date Type Department Care Team (Late st Contact Info) Description 09/09/2024 10:20 EST Office Visit [facility] Endocrinology - [address] [phone] Day Littlejohn MD PhD 62 [facility] [address] [place] [address] documented as of this encounter Visit Diagnoses Not on filedocumented in this encounter Care Teams Dba Developer Relationship Specialty Start Date End Date Yossi Torres MD [address] [place] [address] [address] [place] [phone] PCP - General 04/17/11 03/14/16 documented as of this encounter
--- OUTSIDE RECORDS SUMMARY | 2024-03-05 15:44 | XMS_ITS | Encounter Summary ---
Author Organization [facility] Address [address] [place] [address] Care Team Providers Care Shrink Pit Supervisor Name Role Phone Yossi Torres MD Primary Care Provider [phone] Reason for Visit * Reason Onset Date Comments Update 04/17/2015 Encounter Details Date Type Department Care Team (Late st Contact Info) Description 04/17/2015 Telephone [facility] Endocrinology - [facility] [address] [place] [address] Wilder Zaidi, DO 62 [facility] [address] [place] [address] Update Social History Tobacco Use Types Packs/Day [...] * Telephone Encounter - [place] Chavez - 04/21/2015 1427 EDT Return call from lali. Left message to try again, patient needs to be getting 1/2 of a 0.1mg tab tid. Or 0.05mg tid. * Telephone Encounter - [place] Chavez - 04/21/2015 1114 EDT Fluid intake is currently 90oz a day. Counting soups and all fluids, they are very careful that he gets the 90 oz a day. Add 10 more oz for a total of 100 oz daily. Ddavp dosing will be clarified, lali will call back as she is driving. * Telephone Encounter - [place] Chavez - 04/17/2015 1334 EDT Sodium from 04/13 146 H (136-145) We increased his fluids by 10 oz on 04/04/15 * Telephone Encounter - Addie Burgess - 04/17/2015 1120 EDT Reason for Call: Update Summary/Symptoms: Lali from [facility] term looking for pt's sodium levels. Addie Burgess 04/17/2015 11:20 documented in this encounter Plan of Treatment Upcoming Encounters Date Type Department Care Team (Late st Contact Info) Description 09/09/2024 10:20 EST Office Visit [facility] Endocrinology - [address] [address] Day Littlejohn MD PhD 62 [facility] [address] [place] [address] documented as of this encounter Visit Diagnoses Not on filedocumented in this encounter Care Teams Shrink Pit Supervisor Relationship Specialty Start Date End Date Yossi Torres MD [address] [place] [address] [address] [place] [phone] PCP - General 04/17/11 03/14/16 documented as of this encounter
--- OUTSIDE RECORDS SUMMARY | 2024-03-05 15:44 | XMS_ITS | Encounter Summary ---
Author Organization [facility] Address [address] [place] [address] Care Team Providers Care Pig Machine Crane Operator Name Role Phone Emilee Cody MD Primary Care Provider + Ren Vaz MD Primary Care Provider [phone] Encounter Details Date Type Department Care Team (Late st Contact Info) Description 03/15/2018 Historical Results Only [facility] - Main [address] [address] Delfino Gallegos MD [address] [place] [address] [place] [address] Social History Tobacco Use Types Packs/Day Years [...] Description 09/09/2024 10:20 EST Office Visit [facility] Endocrinology - [facility] [address] [place] [address] Day Littlejohn MD PhD 62 [facility] [address] [place] [address] documented as of this encounter Procedures Procedure Name Priority Date/Time Associated Diagnosis Comments SODIUM Routine 03/15/2018 16:50 EDT documented in this encounter Results * SODIUM (03/15/2018 16:50 EDT) Sodium 136 136 - 145 mEq/L 03/17/2018 10:41 EDT [facility] Comment: A waiver of liability has been signed and scanned into the patient's medical record. 03/15/2018 16:5 0 EDT 03/16/2018 10:05 EDT Delfino Gallegos MD CHEMISTRY & BLOO D GAS ORDERABLES [facility] documented in this encounter Visit Diagnoses Not on filedocumented in this encounter Care Teams Pig Machine Crane Operator Relationship Specialty Start Date End Date Emilee Cody MD PCP - General 03/15/16 09/29/18 Ren Vaz MD [address] [place] [address] PCP - General 09/30/18 documented as of this encounter
--- OUTSIDE RECORDS SUMMARY | 2024-03-05 15:44 | XMS_ITS | Encounter Summary ---
Author Organization [facility] Address [address] [place] [address] Care Team Providers Care Radioisotope Production Operator Name Role Phone Emilee Cody MD Primary Care Provider + Reason for Visit * Reason Onset Date Comments Follow-up 12/19/2016 Encounter Details Date Type Department Care Team (Late st Contact Info) Description 12/19/2016 Telephone [facility] Endocrinology - [facility] [address] [place] [address] Wilder Zaidi DO 62 [facility] [address] [place] [address] Follow-up Social History Tobacco Use [...] Telephone Encounter - Jennifer Au RN - 12/19/2016 1031 EDT Spoke with Lali and relayed Dr Pa review of Bettina sodium level and to continue on current regiment. They will have labs done as scheduled./JOSE * Telephone Encounter - Wilder Zaidi DO - 12/19/2016 1028 EDT Please contact the patient's half-way. I reviewed his most recent sodium that was drawn on 12/18/2016 at [facility] [place] [place]. His sodium was normal at 141. He should continue his current dose of DDAVP and current fluid levels. documented in this encounter Plan of Treatment Upcoming Encounters Date Type Department Care Team (Late st Contact Info) Description 09/09/2024 10:20 EST Office Visit [facility] Endocrinology - [address] [address] Day Littlejohn MD PhD [address] [place] [address] [address] [place] [address] documented as of this encounter Visit Diagnoses Not on filedocumented in this encounter Care Teams Radioisotope Production Operator Relationship Specialty Start Date End Date Emilee Cody MD PCP - General 03/15/16 09/29/18 documented as of this encounter
--- OUTSIDE RECORDS SUMMARY | 2024-03-05 15:44 | XMS_ITS | Encounter Summary ---
Author Organization [facility] Address [address] [place] [address] Care Team Providers Care Plater Printed Circuit Board Panels Name Role Phone Emilee Cody MD Primary Care Provider + Reason for Visit * Reason Onset Date Comments Prior Auth, Medication 06/14/2016 Levothyro xine Encounter Details Date Type Department Care Team (Late st Contact Info) Description 06/14/2016 Telephone [facility] Endocrinology - [facility] [address] [place] [address] Wilder Zaidi, 62 [facility] [address] [place] [address] Prior Auth, Medication (Levothyroxine) Social History Tobacco Use Types Packs/Day Years [...] Dispensed Refills Start Date End Da te levothyroxine (SYNTHROID) 150 mcg tablet TAKE ONE TABLET BY MOUTH EVERY DAY/ Blister pack 30 Tab 11 06/14/2016 07/12/2016 documented in this encounter Miscellaneous Notes * Telephone Encounter - [place] Chavez - 06/14/2016 1128 EST Spoke to lali, needs 30 day blister pack overide. New rx sent to pharmacy. Sodium came back low at 135 on 06/05/16. He is on fluid restriction of 110 oz daily. This is the same as his summer restriction. It was also drawn mid day instead of in the am. We will plan to retest in 7 days. * Telephone Encounter - Patrica Mari - 06/14/2016 0839 EST Lali from [facility] calling states that pt will be out of medication tomorrow and that they need an urgent PA for Levothyroxine. Please call. documented in this encounter Plan of Treatment Upcoming Encounters Date Type Department Care Team (Late st Contact Info) Description 09/09/2024 10:20 EST Office Visit [facility] Endocrinology - [address] [phone] Day Littlejohn MD PhD [address] [place] [address] [place] [phone] documented as of this encounter Visit Diagnoses Not on filedocumented in this encounter Discontinued Medications Medication Sig Discontinue Reason Start Date End Da te levothyroxine (SYNTHROID) 150 mcg tablet TAKE ONE TABLET BY MOUTH EVERY DAY Reorder 05/01/2016 06/14/2016 documented as of this encounter Care Teams Plater Printed Circuit Board Panels Relationship Specialty Start Date End Date Emilee Cody MD PCP - General 03/15/16 09/29/18 documented as of this encounter
--- OUTSIDE RECORDS SUMMARY | 2024-03-05 15:44 | XMS_ITS | Encounter Summary ---
Author Organization [facility] Address [address] [place] [address] Care Team Providers Care Worship Leader Name Role Phone Emilee Cody MD Primary Care Provider + Reason for Visit * Reason Onset Date Comments Medications Refill 05/01/2016 Encounter Details Date Type Department Care Team (Late st Contact Info) Description 05/01/[address] [facility] Endocrinology - [facility] [address] [place] [address] Wilder Zaidi, 62 [facility] [address] [place] [address] Medications Refill Social History Tobacco [...] TAKE ONE TABLET BY MOUTH EVERY DAY 90 Tab 1 05/01/2016 06/14/2016 documented in this encounter Miscellaneous Notes * Telephone Encounter - Gladys Willingham - 05/01/2016 0900 EDT Medication(s) Requested: levothyroxine Pharmacy: [facility] Last Refill Date: Last Visit Date: 08-04-14 Next Visit Date: 10/31/2016 Is patient out of medication? bobby Willingham 05/01/2016 9:00 documented in this encounter Plan of Treatment Upcoming Encounters Date Type Department Care Team (Late st Contact Info) Description 09/09/2024 10:[address] [facility] Endocrinology - [address] [address] Day Littlejohn MD PhD [address] [phone] documented as of this encounter Visit Diagnoses Not on filedocumented in this encounter Discontinued Medications Medication Sig Discontinue Reason Start Date End Da te levothyroxine (SYNTHROID) 150 mcg tablet TAKE ONE TABLET BY MOUTH EVERY DAY Reorder 03/18/2016 05/01/2016 documented as of this encounter Care Teams Worship Leader Relationship Specialty Start Date End Date Emilee Cody MD PCP - General 03/15/16 09/29/18 documented as of this encounter
--- OUTSIDE RECORDS SUMMARY | 2024-03-05 15:44 | XMS_ITS | Encounter Summary ---
Author Organization [facility] Address [address] [place] [address] Care Team Providers Care Staff Analyst Name Role Phone Yossi Torres MD Primary Care Provider [phone] Reason for Visit * Reason Onset Date Comments Letter for School/Work 10/17/2014 Encounter Details Date Type Department Care Team (Late st Contact Info) Description 10/17/2014 Telephone [facility] Endocrinology - [facility] [address] [place] [address] Belgica Chavez CDE 62 [facility] [address] [place] [address] Letter for School/Work Social History Tobacco Use Types Packs/Day Years [...] * Telephone Encounter - Belgica Chavez - 10/19/2014 1122 EDT Faxed letter to [facility] [employer]. * Telephone Encounter - Wilder Zaidi DO - 10/17/2014 2109 EDT Please type up letter for me to sign. He is restricted to 60 oz of liquids per day. In the summer he may require an increase to 70 oz based on his sodium levels. Route me the letter for editing and Iwill sign. Do we know where to send it or who to address the letter to? * Telephone Encounter - Belgica Chavez - 10/17/2014 1417 EDT Needs a letter from Dr. Zaidi stating how much free liquid patient is allowed per day on the fluid restriction. He is going to assisted living and they need a doctors order in writing. documented in this encounter Plan of Treatment Upcoming Encounters Date Type Department Care Team (Late st Contact Info) Description 09/09/2024 10:20 EST Office Visit [facility] Endocrinology - [address] [address] Day Littlejohn MD PhD [address] [place] [address] [address] [place] [address] documented as of this encounter Visit Diagnoses Not on filedocumented in this encounter Care Teams Staff Analyst Relationship Specialty Start Date End Date Yossi Torres MD [address] [place] [address] [address] [place] [phone] PCP - General 04/17/11 03/14/16 documented as of this encounter
--- OUTSIDE RECORDS SUMMARY | 2024-03-05 15:44 | XMS_ITS | Encounter Summary ---
Author Organization [facility] Address [address] [place] [address] Care Team Providers Care Motorcycle Sales Associate Name Role Phone Yossi Torres MD Primary Care Provider [phone] Reason for Visit * Reason Comments Other Encounter Details Date Type Department Care Team (Late st Contact Info) Description 08/25/[address] [address] Day Littlejohn MD PhD [address] [place] [phone] Other Social History Tobacco Use Types Packs/Day Years [...] TABLET BY MOUTH EVERY DAY 90 Tab 3 08/25/2014 05/03/2015 documented in this encounter Plan of Treatment Upcoming Encounters Date Type Department Care Team (Late st Contact Info) Description 09/09/2024 10:20 EST Office Visit [address] [address] Day Littlejohn MD PhD [address] [place] [phone] documented as of this encounter Visit Diagnoses Not on filedocumented in this encounter Discontinued Medications Medication Sig Discontinue Reason Start Date End Da te levothyroxine (SYNTHROID) 150 mcg tablet Take 1 Tab by mouth daily. Reorder 09/01/2013 08/25/2014 documented as of this encounter Care Teams Motorcycle Sales Associate Relationship Specialty Start Date End Date Yossi Torres MD [address] [place] [address] [address] BU[address]O [address] [place] [phone] PCP - General 04/17/11 03/14/16 documented as of this encounter
--- OUTSIDE RECORDS SUMMARY | 2024-03-05 15:44 | XMS_ITS | Encounter Summary ---
Author Organization [facility] Address [address] [place] [address] Care Team Providers Care Lease Purchase Driver Name Role Phone Yossi Torres MD Primary Care Provider [phone]- [phone] Reason for Visit * Reason Onset Date Comments Labs Only 01/18/2015 Sodium results Encounter Details Date Type Department Care Team (Late st Contact Info) Description 01/18/2015 Telephone [facility] Endocrinology - [facility] [address] [place] [address] Wilder Zaidi DO 62 [facility] [address] [place] [address] Labs Only (Sodium results ) Social History Tobacco Use Types Packs/Day [...] * Telephone Encounter - Belgica Chavez - 01/20/2015 1617 EDT Results and plan reviewed with staff at [facility]. * Telephone Encounter - Hayley Odonnell - 01/18/2015 1210 EDT Reason for Call: Labs Only Summary/Symptoms: [employer] called to verify sodium labs had been received. Requested call back. Hayley Odonnell 01/18/2015 12:10 documented in this encounter Plan of Treatment Upcoming Encounters Date Type Department Care Team (Late st Contact Info) Description 09/09/2024 10:20 EST Office Visit [facility] Endocrinology - [address] [address] Day Littlejohn MD PhD 62 [facility] [address] [place] [address] documented as of this encounter Visit Diagnoses Not on filedocumented in this encounter Care Teams Lease Purchase Driver Relationship Specialty Start Date End Date Yossi Torres MD [address] [place] [phone] PCP - General 04/17/11 03/14/16 documented as of this encounter
--- OUTSIDE RECORDS SUMMARY | 2024-03-05 15:44 | XMS_ITS | Encounter Summary ---
Author Organization [facility] Address [address] [place] [address] Care Team Providers Care Commercial Pest Control Representative Name Role Phone Emilee Cody MD Primary Care Provider + Reason for Visit * Reason Onset Date Comments Orders (Non Pre-visit) 06/21/2016 Encounter Details Date Type Department Care Team (Late st Contact Info) Description 06/21/2016 Telephone [facility] Endocrinology - [facility] [address] [place] [address] Wilder Zaidi, 62 [facility] [address] [place] [address] Orders (Non Pre-visit) Social History Tobacco Use Types Packs/Day Years [...] Telephone Encounter - Jennifer Au RN - 06/21/2016 1152 EST Lab orders faxed as requested./JOSE * Telephone Encounter - Gladys Willingham - 06/21/2016 0900 EST Reason for Call: Orders (Non Pre-visit) Summary/Symptoms: Pt needs lab orders faxed to [facility] @ [phone]. Gladys Willingham 06/21/2016 9:28 documented in this encounter Plan of Treatment Upcoming Encounters Date Type Department Care Team (Late st Contact Info) Description 09/09/2024 10:20 EST Office Visit [facility] Endocrinology - [address] [phone] Day Littlejohn MD PhD [address] [place] [phone] documented as of this encounter Visit Diagnoses Diagnosis 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HCC-CMS)- Primary Panhypopituitarism documented in this encounter Care Teams Commercial Pest Control Representative Relationship Specialty Start Date End Date Emilee Cody MD PCP - General 03/15/16 09/29/18 documented as of this encounter
--- OUTSIDE RECORDS SUMMARY | 2024-03-05 15:44 | XMS_ITS | Encounter Summary ---
Author Organization [facility] Address [address] [place] [address] Care Team Providers Care Diversified Crops I Farmworker Name Role Phone Yossi Torres MD Primary Care Provider [phone] Reason for Visit * Reason Comments Labs Only Encounter Details Date Type Department Care Team (Latest Contact Info) Description 08/04/2014 15:15 EST Procedure visit [facility] Endocrinology - [address] [address] Unknown, Provider, Phlebotomy, [facility] Endo 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CMS-HCC) (HCC-CMS); Secondary hypothyroidism Social History Tobacco Use Types Packs/Day Years Used Date Smoking Tobacco: Never Smokeless Tobacco: Never Alcohol Use Standard Drinks/Week Comments No 0 (1 standard drink = 0.6 oz pur e alcohol) Sex and Gender Information Value Date Recorded Sex Assigned at Not on file Gender Identity Not on file Sexual Orientation Not on file documented as of this encounter Discharge Diagnoses Diagnosis 253.5 DIABETES INSIPIDUS[ICD-9-CM] 244.8 ACQUIRED HYPOTHYROID NEC[ICD-9-CM] documented in this encounter Progress Notes * Emerald Gorman - 08/04/2014 1522 EST Blood sample drawn from vein for testing at the order of Dr. Zaidi ???I was supervised by Dr. Zaidi who was in the suite and readily available.?? documented in this encounter Plan of Treatment Upcoming Encounters Date Type Department Care Team (Late st Contact Info) Description 09/09/2024 10:20 EST Office Visit [facility] Endocrinology - [place] [address] [place] [address] Day Littlejohn MD PhD 62 [facility] [address] [place] [address] documented as of this encounter Procedures Procedure Name Priority Date/Time Associated Diagnosis Comments T3 FREE Routine 08/04/2014 15:24 EST Secondary hypothyroidism T4 FREE Routine 08/04/2014 15:24 EST Secondary hypothyroidism ELECTROLYTES Routine 08/04/2014 15:24 EST 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CMS-HCC) (HCC-[facility]) documented in this encounter Results * T3 FREE (08/04/2014 15:24 EST) T3, Free 2.5 2.3 - 4.2 pg/mL 08/04/2014 21:27 EST [facility] Blood specimen (specimen) BLOOD SPECIMEN / Unknown 08/04/2014 15:24 EST 08/04/2014 19:15 EST Wilder Zaidi DO CHEMISTRY & BL OOD GAS ORDERABLES [facility] [address] [place] [address] * T4 FREE (08/04/2014 15:24 EST) Free T4 1.4 0.8 - 1.8 ng/dl 08/04/2014 21:27 EST [facility] Blood specimen (specimen) BLOOD SPECIMEN / Unknown 08/04/2014 15:24 EST 08/04/2014 19:15 EST Wilder Zaidi DO CHEMISTRY & BL OOD GAS ORDERABLES Performing Organization Address City/[facility] Co de Phone Number [facility] [address] [place] [address] * (ABNORMAL) ELECTROLYTES (08/04/2014 15:24 EST) Sodium 125(L) 136 - 145 mEq/L 08/04/2014 20:16 EST [facility] Potassium 4.0 3.5 - 5.0 mEq/L 08/04/2014 20:16 EST [facility] Chloride 89(L) 96 - 110 mEq/L 08/04/2014 20:16 EST [facility] CO2 28 24 - 32 mEq/L 08/04/2014 20:16 [facility] Blood specimen (specimen) BLOOD SPECIMEN / Unknown 08/04/2014 15:24 EST 08/04/2014 19:15 EST Wilder Zaidi DO CHEMISTRY & BL OOD GAS ORDERABLES Performing Organization Address City/[facility] Co de Phone Number [facility] [address] [place] [address] documented in this encounter Visit Diagnoses Diagnosis 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HCC-CMS) Diabetes insipidus Secondary hypothyroidism Other specified acquired hypothyroidism documented in this encounter Care Teams Diversified Crops I Farmworker Relationship Specialty Start Date End Date Yossi Torres MD [address] [place] [address] DR BU[address]O [address] [place] [phone] PCP - General 04/17/11 03/14/16 documented as of this encounter
--- OUTSIDE RECORDS SUMMARY | 2024-03-05 15:44 | XMS_ITS | Encounter Summary ---
Author Organization [facility] Address [address] [place] [address] Care Team Providers Care Specialist Field Engineer Name Role Phone Yossi Torres MD Primary Care Provider +[phone] Emilee Cody MD Primary Care Provider + Reason for Visit * Reason Onset Date Comments Results 08/05/2014 Encounter Details Date Type Department Care Team (Late st Contact Info) Description 08/05/2014 Telephone [facility] Endocrinology - [facility] [address] [place] [address] Wilder Zaidi DO 62 [facility] [address] [place] [address] Results Social History Tobacco Use [...] Miscellaneous Notes * Telephone Encounter - Wilder Zaidi DO - 08/05/2014 0856 EST Spoke with sister. They held his am dose of DDAVP and he went for recheck of sodium. Will await results. Continue 40 oz and recheck sodium in 48 hours. Instructed Bettina to have Miguel Angel seen in ED if behavorial changes. * Telephone Encounter - Belgica Chavez - 08/05/2014 0831 EST She took him for another sodium level today. They were able to see his result through my health online. She was worried so she Held the desmopressin last night. She would like to speak to Dr. Zaidi. She says there is not any way he is getting extra fluids. They are very careful to restrict it to 60 oz per day Ddavp 0.1mg takes 1/2in am,1/2 midday and 1/2 at night for awhile now. Had 60oz yesterday. Did not urinate all day yesterday. * Telephone Encounter - Wilder Zaidi DO - 08/05/2014 0823 EST Please contact patient's sister Bettina via phone. I have reviewed the patient's most recent laboratory results from the dated 08/04/14 . Advise patient that miguel angel's sodium is low at 125. Thyroid function tests are normal. Lets reduce his fluid to 40 oz for three days and then recheck sodium. Make sure he is not getting fluids from another source. documented in this encounter Plan of Treatment Upcoming Encounters Date Type Department Care Team (Late st Contact Info) Description 09/09/2024 10:20 EST Office Visit [facility] Endocrinology - [facility] [address] [place] [address] Day Littlejohn MD PhD [address] [facility] [address] [place] [address] documented as of this encounter Visit Diagnoses Not on filedocumented in this encounter Care Teams Specialist Field Engineer Relationship Specialty Start Date End Date Yossi Torres MD [address] [place] [address] [address] [place] [phone] PCP - General 04/17/11 03/14/16 Emilee Cody MD [address] [place] [address] DR [address]O [address] [place] [phone] PCP - General 03/15/16 09/29/18 documented as of this encounter
--- OUTSIDE RECORDS SUMMARY | 2024-03-05 15:44 | XMS_ITS | Encounter Summary ---
Author Organization [facility] Address [address] [place] [address] Care Team Providers Care Bumper And Painter Name Role Phone Emilee Cody MD Primary Care Provider + Reason for Visit * Reason Onset Date Comments Results 10/07/2016 done 10/04 Follow-up 10/09/2016 sodium results Encounter Details Date Type Department Care Team (Late st Contact Info) Description 10/07/2016 Telephone [facility] Endocrinology - [address] [address] Wilder Zaidi DO [address] [place] [address] [address] [place] [address] Results (done 10/04); Follow-up (sodium results) Social History Tobacco Use Types Packs/Day Years [...] Telephone Encounter - Jennifer Au RN - 10/10/2016 1531 EDT Left phone message for Lali relaying Dr. Pa review of recent sodium level./JOSE * Telephone Encounter - Wilder Zaidi DO - 10/10/2016 1335 EDT Please contact Lali at patient's intermediate. His sodium on 10/04/16 was normal at 138 * Telephone Encounter - Maxine Roy - 10/09/2016 1110 EDT Lali @intermediate requesting sodium results. Lali made aware this was pending Dr. Zaidi's review. * Telephone Encounter - Jennifer Au, RN - 10/07/2016 1353 EDT Spoke with Lali, do not have labs - will kimble them down at [facility]./Jose * Telephone Encounter - Arlene Monroy - 10/07/2016 1319 EDT Per Lali from [facility] calling for sodium lab results done on 10/04/16. Lali is requestinga call back with results. documented in this encounter Plan of Treatment Upcoming Encounters Date Type Department Care Team (Late st Contact Info) Description 09/09/2024 10:20 EST Office Visit [facility] [place] [address] Day Littlejohn MD PhD 62 [facility] [address] [place] [address] documented as of this encounter Visit Diagnoses Not on filedocumented in this encounter Care Teams Bumper And Painter Relationship Specialty Start Date End Date Emilee Cody MD PCP - General 03/15/16 09/29/18 documented as of this encounter
--- OUTSIDE RECORDS SUMMARY | 2024-03-05 15:44 | XMS_ITS | Encounter Summary ---
Author Organization [facility] Address [address] [place] [address] Care Team Providers Care Train Electronic Technician Name Role Phone Emilee Cody MD Primary Care Provider + Reason for Visit * Reason Onset Date Comments Appointment Related 07/14/2018 cancelled 07/15 appt Encounter Details Date Type Department Care Team (Late st Contact Info) Description 07/14/2018 Telephone [facility] Endocrinology - [facility] [address] [place] [address] Wilder Zaidi, 62 [facility] [address] [place] [address] Appointment Related (cancelled 07/15 appt) Social History Tobacco Use Types Packs/Day Years [...] encounter Miscellaneous Notes * Telephone Encounter - Violet Artis - 07/14/2018 1703 EST Patients director of casework called to cancel an appt for 07/[address] Zaidi as the patient also had an appt at [facility] Endocrinology for the same time documented in this encounter Plan of Treatment Upcoming Encounters Date Type Department Care Team (Late st Contact Info) Description 09/09/2024 10:20 EST Office Visit [facility] Endocrinology - [facility] [address] [place] [address] Day Littlejohn MD PhD 62 [facility] [address] [place] [address] documented as of this encounter Visit Diagnoses Not on filedocumented in this encounter Care Teams Train Electronic Technician Relationship Specialty Start Date End Date Emilee Cody MD PCP - General 03/15/16 09/29/18 documented as of this encounter
--- OUTSIDE RECORDS SUMMARY | 2024-03-05 15:44 | XMS_ITS | Encounter Summary ---
Author Organization [facility] Address [address] [place] [address] Care Team Providers Care Budget Clerk Name Role Phone Ren Vaz MD Primary Care Provider [phone] Reason for Visit * Reason Onset Date Comments Labs Only 03/03/2019 Encounter Details Date Type Department Care Team (Late st Contact Info) Description 03/03/2019 Telephone [facility] Endocrinology - [facility] [address] [place] [address] Wilder Zaidi, DO 62 [facility] [address] [place] [address] Labs Only Social History Tobacco [...] Encounter - Carlos Alberto Benitez RN - 03/03/2019 1456 EDT Called and left message for Evelyn relaying Dr. Zaidi's message below: Would have electrolytes drawn every 3 months with a as needed order if there is any significant change in behavior Standing lab orders for electrolytes faxed to [facility] as requested for Electrolytes as requested. Labs printed and faxed to [facility] * Telephone Encounter - Wilder Zaidi Do - 03/03/2019 1447 EDT Would have electrolytes drawn every 3 months with a as needed order if there is any significant change in behavior * Telephone Encounter - Alicia Chi - 03/03/2019 1427 EDT Per Evelyn, please fax lab orders to [facility] [phone]. Per Evelyn, needs toknow when his last lab was done and if received as well as how often he should be having the labs done. Evelyn is requesting a call back today when a moment. 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
--- OUTSIDE RECORDS SUMMARY | 2024-03-05 15:44 | XMS_ITS | Encounter Summary ---
Author Organization [facility] Address [address] [place] [address] Care Team Providers Care Ux Design Manager Name Role Phone Yossi Torres MD Primary Care Provider [phone] Reason for Visit * Reason Onset Date Comments Results 05/02/2015 Encounter Details Date Type Department Care Team (Late st Contact Info) Description 05/02/[address] [address] Gladys Huang RN Results Social History Tobacco Use Types Packs/Day [...] Miscellaneous Notes * Telephone Encounter - Gladys Huang RN - 05/02/2015 1412 EDT Message by mistake. documented in this encounter Plan of Treatment Upcoming Encounters Date Type Department Care Team (Late st Contact Info) Description 09/09/2024 10:20 EST Office Visit [address] [address] Day Littlejohn MD PhD [address] [place] [address] [address] [place] [address] documented as of this encounter Visit Diagnoses Not on filedocumented in this encounter Care Teams Ux Design Manager Relationship Specialty Start Date End Date Yossi Torres MD [address] [place] [address] [address] [place] [phone] PCP - General 04/17/11 03/14/16 documented as of this encounter
--- OUTSIDE RECORDS SUMMARY | 2024-03-05 15:44 | XMS_ITS | Encounter Summary ---
Author Organization [facility] Address [address] [place] [address] Care Team Providers Care Assistant Production Manager Name Role Phone Yossi Torres MD Primary Care Provider [phone] Reason for Visit * Reason Onset Date Comments Results 04/04/2015 Encounter Details Date Type Department Care Team (Late st Contact Info) Description 04/04/2015 Telephone [facility] Endocrinology - [facility] [address] [place] [address] Belgica Chavez CDE [address] [facility] [address] [place] [address] Results Social History Tobacco Use [...] * Telephone Encounter - Belgica Chavez - 04/04/2015 1710 EDT Discussed with Lali nurse at [facility]. Advised of plan. She verbalized understanding. * Telephone Encounter - Wilder Zaidi DO - 04/04/2015 1532 EDT Please have them ease his fluid restriction by 10 ounces. For example if he is restricted to 70 oz per day increase to 80 oz per day. Recheck sodium in 10 days after change. * Telephone Encounter - Belgica Chavez - 04/04/2015 1523 EDT Bettina most recent sodium level on 04/03/15 was 146 (136-145) documented in this encounter Plan of Treatment Upcoming Encounters Date Type Department Care Team (Late st Contact Info) Description 09/09/2024 10:20 EST Office Visit [facility] Endocrinology - [address] [address] Day Littlejohn MD PhD [address] [facility] [address] [place] [phone] documented as of this encounter Visit Diagnoses Not on filedocumented in this encounter Care Teams Assistant Production Manager Relationship Specialty Start Date End Date Yossi Torres MD [address] [place] [address] [address] [place] [phone] PCP - General 04/17/11 03/14/16 documented as of this encounter
--- OUTSIDE RECORDS SUMMARY | 2024-03-05 15:44 | XMS_ITS | Encounter Summary ---
Author Organization [facility] Address [address] [place] [address] Care Team Providers Care Relays Draftsperson Name Role Phone Ren Vaz MD Primary Care Provider [phone] Reason for Visit * Reason Comments Pituitary Abnormality Encounter Details Date Type Department Care Team (Latest Contact Info) Description 10/01/2018 13:20 EDT Office Visit [facility] Endocrinology - [facility] [address] [place] [address] Wilder Zaidi, DO 62 [facility] [address] [place] [address] 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HCC-CMS) (Primary Dx); 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HCC-CMS); Gonadotropin deficiency (HCC-CMS); Secondary hypothyroidism; Secondary adrenal insufficiency (HCC-CMS) Social History Tobacco Use Types Packs/Day [...] Sign Reading Time Taken Comments Blood Pressure 129/72 10/01/2018 1327 EDT Pulse 74 10/01/2018 1327 EDT Temperature - - Respiratory Rate - - Oxygen Saturation - - Inhaled Oxygen Concentration - - Weight 97.1 kg (214 lb) 10/01/2018 1327 EDT Height 170.2 cm (5' 7.01) 10/01/2018 1327 EDT Body Mass Index 33.51 10/01/2018 1327 EDT documented in this encounter Functional Status [...] Patient Instructions * Patient Instructions* Wilder Zaidi Do - 10/01/2018 13:20 EDT 1. No change in medication 2. Contact Dr. Zaidi with any changes in urination 3. Have sodium reports sent to Dr. Zaidi 4. Call with questions or concerns 5. Contact Dr. Zaidi directly via e-mail with any scheduling issues ([email or web address]) documented in this encounter Progress Notes * Wilder Zaidi Do - 10/01/2018 1320 EDT SUBJECTIVE: Mr Miguel Angel Burgos is a 28-year-old male who returns to the endocrine clinic today for 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 Miguel Angel was accompanied by his sister mariam and he has 2 living caretakers. Miguel Angel is currently living in his own home in [place], [place]. He has 2 caretakers are with him 24 hours a day and administer all of his medications. Appears to be doing extremely well. This is the most interactive I seen Miguel Angle in any visit in the manyyears I been taking care of him. Unfortunately, Miguel Angel was hospitalized at [facility] from 09/02/2017 until 03/12/2018 due to a [...] as his follow- up endocrinology visit at [facility]. ?? With regards to his secondary adrenal [...] unchanged. No need to stress dose. His technical sales representatives was able to articulate how and when they would stressdose steroids. ?? With regards to his secondary [...] day. No significant changes in his mood. They have been checking his sodium regularly as an outpatient and has remained stable. We will have those sodium check sent to my office to review. I [facility]. We can likely stretch these out particularly if they been stable. ?? PAST MEDICAL HISTORY: Reviewed as documented in electronic medical record. ?? MEDICATIONS: Reviewed as documented in electronic medical record. ?? ALLERGIES: Reviewed as documented in electronic medical record. ?? OBJECTIVE: Physical exam: BP 129/72 Pulse 74 Ht 170.2 cm (67.01) Wt 97.1 kg (214 lb) BMI 33.51 kg/m?? . In general, patient is a 28-year-old male in no acute distress. HEENT: Eyes: There does not appear to be any lid lag or periorbital edema noted. Mouth: Mucous membranes moist and pink incolor. No oral lesions seen. Dentition appears in [...] was much more interactive at today's visit withthis provider. Mood seems stable. ?? LABORATORY DATA: 1. Sodium drawn on 07/15/2018 was normal at 138 2. Free T4 drawn on 07/15/2018 was 1.24 ASSESSMENT: 1. Mr Miguel Angel Burgos is [...] questions or concerns. We will review his upcoming sodium. If stable can stretch out blood work to probably every 4-6 months. b. Secondary hypothyroidism. Appears clinically and biochemically euthyroid. Continue current dose of levothyroxine. May need to watch for over replacement as his weight decreases. c. Secondary adrenal insufficiency. Patient is currently [...] will review upcoming sodium and if normal stretch out surveillance as discussed above 7. He wishes to continue to receive his endocrine care here at the [facility] despite living in [place]. However, if he is hospitalized he will likely be sent to [facility] and I be happy to coordinate with our endocrinology group as needed. documented in this encounter Plan of Treatment Upcoming Encounters Date Type Department Care Team (Late st Contact Info) Description 09/09/2024 10:20 EST Office Visit [facility] Endocrinology - [address] [address] Day Littlejohn MD PhD [address] [place] [address] [address] [place] [phone] documented as of this encounter Visit Diagnoses Diagnosis 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HCC-CMS)- Primary Panhypopituitarism 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HCC-CMS) Diabetes insipidus Gonadotropin deficiency (HCC-CMS) Other anterior pituitary disorders Secondary hypothyroidism Other specified acquired hypothyroidism Secondary adrenal insufficiency (HCC-CMS) Glucocorticoid deficiency documented in this encounter Historical Medications * This list may reflect changes made after this encounter. Medication Sig Dispensed Refills Start Date End Date cyclobenzaprine (FLEXERIL) 10 mg tablet Take 10 mg by mouth 3 times daily. calcium carbonate (TUMS) 200 mg calcium (500 mg) tablet,chewable Take 1 Tablet by mouth daily. aspirin (ASPIRIN EC) 81 mg EC tablet Take 1 Tablet by mouth daily. atorvastatin (LIPITOR) 40 mg tablet Take 1 Tablet by mouth daily. docusate sodium (STOOL SOFTENER) 100 mg capsule Take 1 Capsule by mouth daily. ferrous gluconate (FERGON) 324 mg (38 mg iron) tablet Take 1 Tablet by mouth daily with breakfast. metoprolol (LOPRESSOR) 25 mg tablet Take 25 mg by mouth daily. added in this encounter Care Teams Relays Draftsperson Relationship Specialty Start Date End Date Ren Vaz MD [address] [place] [address] PCP - General 09/30/18 documented as of this encounter
--- OUTSIDE RECORDS SUMMARY | 2024-03-05 15:44 | XMS_ITS | Encounter Summary ---
Author Organization [facility] Address [address] [place] [address] Care Team Providers Care Fishing Rod Assembler Name Role Phone Yossi Torres MD Primary Care Provider [phone] Reason for Visit * Reason Onset Date Comments Follow-up 03/31/2015 Encounter Details Date Type Department Care Team (Late st Contact Info) Description 03/31/2015 Telephone [facility] Endocrinology - [facility] [address] [place] [address] Wilder Zaidi, 62 [facility] [address] [place] [address] Follow-up Social History Tobacco Use [...] Telephone Encounter - Georgia Rice RN - 03/31/2015 1116 EDT Phone call to Lali (nurse at [facility]) Left message on her personal voice mail Per Dr. Zaidi please repeat Sodium level on Friday04/03/15. Sodium level was 146 ([id number]) * Telephone Encounter - Addie Burgess - 03/31/2015 1010 EDT Reason for Call: Follow-up Summary/Symptoms: Lali (RN) requesting a call back when nurses receive pt's sodium levels from [facility]. Addie Burgess 03/31/2015 10:10 documented in this encounter Plan of Treatment Upcoming Encounters Date Type Department Care Team (Late st Contact Info) Description 09/09/2024 10:20 EST Office Visit [facility] Endocrinology - [address] [address] Day Littlejohn MD PhD 62 [facility] [address] [place] [address] documented as of this encounter Visit Diagnoses Not on filedocumented in this encounter Care Teams Fishing Rod Assembler Relationship Specialty Start Date End Date Yossi Torres MD [address] [place] [address] [phone] PCP - General 04/17/11 03/14/16 documented as of this encounter
--- OUTSIDE RECORDS SUMMARY | 2024-03-05 15:44 | XMS_ITS | Encounter Summary ---
Author Organization [facility] Address [address] [place] [address] Care Team Providers Care Catalyst Recovery Operator Name Role Phone Emilee Cody MD Primary Care Provider + Reason for Visit * Reason Onset Date Comments Discuss Test Results 06/13/2016 Encounter Details Date Type Department Care Team (Late st Contact Info) Description 06/13/2016 Telephone [facility] Endocrinology - [facility] [address] [place] [address] Wilder Zaidi, 62 [facility] [address] [place] [address] Discuss Test Results Social History Tobacco Use Types Packs/Day [...] encounter Miscellaneous Notes * Telephone Encounter - Tracy Cowan - 06/13/2016 1348 EST Lali from [facility] calling for sodium results drawn a few weeks ago @ [facility] documented in this encounter Plan of Treatment Upcoming Encounters Date Type Department Care Team (Late st Contact Info) Description 09/09/2024 10:20 EST Office Visit [facility] Endocrinology - [place] [address] [place] [address] Day Littlejohn MD PhD [address] [facility] [address] [place] [address] documented as of this encounter Visit Diagnoses Not on filedocumented in this encounter Care Teams Catalyst Recovery Operator Relationship Specialty Start Date End Date Emilee Cody MD PCP - General 03/15/16 09/29/18 documented as of this encounter
--- OUTSIDE RECORDS SUMMARY | 2024-03-05 15:44 | XMS_ITS | Encounter Summary ---
Author Organization [facility] Address [address] [place] [address] Care Team Providers Care Airport Planner Name Role Phone Emilee Cody MD Primary Care Provider + Reason for Visit * Reason Onset Date Comments Prior Auth, Medication 08/05/2017 Encounter Details Date Type Department Care Team (Late st Contact Info) Description 08/05/2017 Telephone [facility] Endocrinology - [address] [phone] Emilee Cody MD [address] [place] [address] Prior Auth, Medication Social History Tobacco Use Types Packs/Day Years [...] encounter Miscellaneous Notes * Telephone Encounter - Lucía Bundy - 08/08/2017 0831 EST Rcvd fax from [place] Medicaid with APPROVAL for Levothyroxine 150 mcg tablet. NAKIA #: [id number] Dates: 08/07/2017 - 08/07/2018 Tracking #: [id number] Qty/Days Supply Restrictions: Called pharmacy to provide approval details. * Telephone Encounter - Lucía Bundy - 08/07/2017 1608 EST Completed [place] Medicaid [place] request form for levothyroxine blister pack and e-filed using [facility] to initiate this process. Response time is 3-5 days. To f/u, call [phone] * Telephone Encounter - Kristin Osman - 08/05/2017 1904 EST Rec sherrill from [facility] [address] [place] [address] Rx # [id number] Every Day /Blisster Pack LEVOTHYROXINE 150 MCG TAB QTY 30 [place] NEEDED documented in this encounter Plan of Treatment Upcoming Encounters Date Type Department Care Team (Late st Contact Info) Description 09/09/2024 10:20 EST Office Visit [facility] Endocrinology - [address] [phone] Day Littlejohn MD PhD [address] [place] [address] [place] [phone] documented as of this encounter Visit Diagnoses Not on filedocumented in this encounter Care Teams Airport Planner Relationship Specialty Start Date End Date Emilee Cody MD PCP - General 03/15/16 09/29/18 documented as of this encounter
--- OUTSIDE RECORDS SUMMARY | 2024-03-05 15:44 | XMS_ITS | Encounter Summary ---
Author Organization [facility] Address [address] [place] [address] Care Team Providers Care Activities Specialist Name Role Phone Emilee Cody MD Primary Care Provider + Reason for Visit * Reason Onset Date Comments Results 06/02/2017 Encounter Details Date Type Department Care Team (Late st Contact Info) Description 06/02/2017 Telephone [facility] Endocrinology - [facility] [address] [place] [address] Wilder Zaidi DO 62 [facility] [address] [place] [address] Results Social History Tobacco Use [...] Telephone Encounter - Jennifer Au RN - 06/03/2017 0853 EST Relayed to support services manager of [facility] the sodium results of 05/28 with no changes. She verbalized understanding. Labs will be repeated in 6-8 weeks. * Telephone Encounter - Wilder Zaidi DO - 06/02/2017 205 EST Please contact patient's living facility. His most recent sodium collected on May 28, 2017 waswithin the normal range at 139. He should continue his current dose of DDAVP and current fluid prescription. documented in this encounter Plan of Treatment Upcoming Encounters Date Type Department Care Team (Late st Contact Info) Description 09/09/2024 10:20 EST Office Visit [facility] Endocrinology - [address] [address] Day Littlejohn MD PhD [address] [place] [address] [address] [place] [address] documented as of this encounter Visit Diagnoses Not on filedocumented in this encounter Care Teams Activities Specialist Relationship Specialty Start Date End Date Emilee Cody MD PCP - General 03/15/16 09/29/18 documented as of this encounter
--- OUTSIDE RECORDS SUMMARY | 2024-03-05 15:44 | XMS_ITS | Encounter Summary ---
Author Organization [facility] Address [address] [place] [address] Care Team Providers Care Log Loader Name Role Phone Emilee Cody MD Primary Care Provider + Reason for Visit * Reason Onset Date Comments Update 04/08/2016 Going to ED Sinus Problems 04/08/2016 Difficulty Walking 04/08/2016 Encounter Details Date Type Department Care Team (Late st Contact Info) Description 04/08/2016 Telephone [facility] Endocrinology - [facility] [address] [place] [address] Wilder Zaidi, 62 [facility] [address] [place] [address] Update (Going to ED); Sinus Problems; Difficulty Walking Social History Tobacco Use Types Packs/Day Years [...] * Telephone Encounter - Belgica Chavez - 04/09/2016 1047 EDT Spoke to caregivers at the residence home. Stress dosing of steroids: For a mild acute illness, such as cold symptoms Double steroid dose for 3 days For a serious illness, like infection requiring antibiotics, Triple the dose for 3 days. Call endocinology clinic anytime with questions. Next sodium level in 6-8 weeks. Lali Campbell verbalized understanding of plan. * Telephone Encounter - Wilder Zaidi DO - 04/09/2016 0924 EDT Have caretakers update this provider. Remind them that they will need to stress dose his steroids. * Telephone Encounter - Patrica Mari - 04/08/2016 1644 EDT Calling states they are on their way to the ED states that pt is having some sinus problems and that he is having difficulty walking. Please call. documented in this encounter Plan of Treatment Upcoming Encounters Date Type Department Care Team (Late st Contact Info) Description 09/09/2024 10:20 EST Office Visit [facility] Endocrinology - [address] [address] Day Littlejohn MD PhD [address] [place] [address] [address] [place] [address] documented as of this encounter Visit Diagnoses Not on filedocumented in this encounter Care Teams Log Loader Relationship Specialty Start Date End Date Emilee Cody MD PCP - General 03/15/16 09/29/18 documented as of this encounter
--- OUTSIDE RECORDS SUMMARY | 2024-03-05 15:44 | XMS_ITS | Encounter Summary ---
Author Organization [facility] Address [address] [place] [address] Care Team Providers Care Line Walker Name Role Phone Yossi Torres MD Primary Care Provider [phone] Reason for Visit * Reason Onset Date Comments Medications Refill 05/03/2015 Encounter Details Date Type Department Care Team (Late st Contact Info) Description 05/03/2015 Refill [facility] Endocrinology - [facility] [address] [place], [place] [phone] Wilder Zaidi, 62 [facility] [address] [place] [address] Medications Refill Social History Tobacco [...] BY MOUTH EVERY DAY 90 Tab 1 05/04/2015 03/18/2016 documented in this encounter Miscellaneous Notes * Telephone Encounter - Addie Burgess - 05/03/2015 0956 EDT Medication(s) Requested: Levothyroxine 150mcg Pharmacy: [facility] Last Refill Date: 08/25/14 Last Visit Date: 08/04/14 Next Visit Date: 10/23/2015 Is patient out of medication? Dinorah Burgess 05/03/2015 9:56 documented in this encounter Plan of Treatment Upcoming Encounters Date Type Department Care Team (Late st Contact Info) Description 09/09/2024 10:20 EST Office Visit [facility] Endocrinology - [facility] [address] [place] [address] Day Littlejohn MD PhD [address] [phone] documented as of this encounter Visit Diagnoses Not on filedocumented in this encounter Discontinued Medications Medication Sig Discontinue Reason Start Date End Da te levothyroxine (SYNTHROID) 150 mcg tablet TAKE ONE TABLET BY MOUTH EVERY DAY Reorder 08/25/2014 05/03/2015 documented as of this encounter Care Teams Line Walker Relationship Specialty Start Date End Date Yossi Torres MD [address] [place] [address] [address] [place] [phone] PCP - General 04/17/11 03/14/16 documented as of this encounter
--- OUTSIDE RECORDS SUMMARY | 2024-03-05 15:44 | XMS_ITS | Encounter Summary ---
Author Organization [facility] Address [address] [place] [address] Care Team Providers Care In Flight Refueling Operator Name Role Phone Emilee Cody MD Primary Care Provider + Reason for Visit * Reason Onset Date Comments Medications Refill 05/27/2017 Encounter Details Date Type Department Care Team (Late st Contact Info) Description 05/27/2017 Refill [facility] Endocrinology - [facility] [address] [place] [address] Wilder Zaidi, 62 [facility] [address] [place] [address] Medications Refill Social History Tobacco [...] TABLET BY MOUTH EVERY DAY/ Blister pack 90 Tab 3 05/27/2017 09/04/2023 documented in this encounter Miscellaneous Notes * Telephone Encounter - Belgica Camara V. - 05/27/2017 1205 EST Medication(s) Requested : Levothyroxine 150mcg Pharmacy: [facility] Next Visit Date 10/23/2017 Out of Medication? No Belgica Camara 05/27/2017 12:05 documented in this encounter Plan of Treatment Upcoming Encounters Date Type Department Care Team (Late st Contact Info) Description 09/09/2024 10:20 EST Office Visit [facility] Endocrinology - [address] [address] Day Littlejohn MD PhD [address] [place] [address] documented as of this encounter Visit Diagnoses Not on filedocumented in this encounter Discontinued Medications Medication Sig Discontinue Reason Start Date End Da te levothyroxine (SYNTHROID) 150 mcg tablet TAKE ONE TABLET BY MOUTH EVERY DAY/ Blister pack Reorder 07/12/2016 05/27/2017 documented as of this encounter Care Teams In Flight Refueling Operator Relationship Specialty Start Date End Date Emilee Cody MD PCP - General 03/15/16 09/29/18 documented as of this encounter
--- OUTSIDE RECORDS SUMMARY | 2024-03-05 15:44 | XMS_ITS | Encounter Summary ---
Author Organization [facility] Address [address] [place] [address] Care Team Providers Care Straight Line Press Setter Name Role Phone Yossi Torres MD Primary Care Provider [phone] Reason for Visit * Reason Onset Date Comments Discuss Test Results 05/18/2015 Encounter Details Date Type Department Care Team (Late st Contact Info) Description 05/18/2015 Telephone [facility] Endocrinology - [facility] [address] [place] [address] Wilder Zaidi, [address] [facility] [address] [place] [address] Discuss Test Results Social History [...] encounter Miscellaneous Notes * Telephone Encounter - ChavezBelgica - 05/18/2015 1628 EST Left message for Lali, same dose retest in 4 wks. * Telephone Encounter - ScottBelgica - 05/18/2015 1544 EST Sodium 143 from [facility]. * Telephone Encounter - Tracy Nunez - 05/18/2015 1343 EST Reason for Call: Discuss Test Results Summary/Symptoms: Sodium results done Friday @ [facility] Tracy Nunez 05/18/2015 13:44 documented in this encounter Plan of Treatment Upcoming Encounters Date Type Department Care Team (Late st Contact Info) Description 09/09/2024 10:20 EST Office Visit [facility] Endocrinology - [address] [address] Day Littlejohn MD PhD [address] [facility] [address] [place] [address] documented as of this encounter Visit Diagnoses Not on filedocumented in this encounter Care Teams Straight Line Press Setter Relationship Specialty Start Date End Date Yossi Torres MD [address] [place] [address] [address] [place] [phone] PCP - General 04/17/11 03/14/16 documented as of this encounter
--- OUTSIDE RECORDS SUMMARY | 2024-03-05 15:44 | XMS_ITS | Encounter Summary ---
Author Organization [facility] Address [address] [place] [address] Care Team Providers Care Starch Dumper Name Role Phone Yossi Torres MD Primary Care Provider +1 [phone] Reason for Visit * Reason Onset Date Comments Results 12/30/2014 Encounter Details Date Type Department Care Team (Late st Contact Info) Description 12/30/2014 Telephone [facility] Endocrinology - [facility] [address] [place] [address] Wilder Zaidi DO [address] [facility] [address] [place] [address] Results Social History Tobacco Use [...] Telephone Encounter - Wilder Zaidi DO - 01/02/2015 1521 EDT Sodium on the high end of normal. Have them increase fluid restriction to 70 ounces daily. Recheck sodium in one week * Telephone Encounter - Chavez, [place] - 01/02/2015 1512 EDT Sodium 12/30/14 Sodium 145 136-145 * Telephone Encounter - [place] Chavez - 01/02/2015 1427 EDT Faxing sodium results. * Telephone Encounter - Gladys Willingham - 12/30/2014 1415 EDT Reason for Call: Results Summary/Symptoms Pt has sodium level testing todayt @ [facility] and caregiver is calling for results. Onset and Duration? na Urgent? Gladys Willingham 12/30/2014 14:15 documented in this encounter Plan of Treatment Upcoming Encounters Date Type Department Care Team (Late st Contact Info) Description 09/09/2024 10:20 EST Office Visit [facility] Endocrinology - [address] [phone] Day Littlejohn MD PhD [address] [place] [address] [place] [address] documented as of this encounter Visit Diagnoses Not on filedocumented in this encounter Care Teams Starch Dumper Relationship Specialty Start Date End Date Yossi Torres MD [address] [place] [address] DR BUITRAGO [address] [place] [phone] PCP - General 04/17/11 03/14/16 documented as of this encounter
--- OUTSIDE RECORDS SUMMARY | 2024-03-05 15:44 | XMS_ITS | Encounter Summary ---
Author Organization [facility] Address [address] [place] [address] Care Team Providers Care Weight Training Instructor Name Role Phone Yossi Torres MD Primary Care Provider +1 [phone] Reason for Visit * Reason Onset Date Comments Medications Refill 03/14/2015 Encounter Details Date Type Department Care Team (Late st Contact Info) Description 03/14/2015 Refill [facility] Endocrinology - [facility] [address] [place], [place] [phone] Wilder Zaidi, [address] [facility] [address] [place] [address] Medications Refill Social History Tobacco [...] 20.25 mg/1.25 gram (1.62 %) transdermal gel pumpIndications:Panhypopi tuitarism (HCC-CMS) Apply 3 pump actuations topically daily for 90 days Daily Max: 60.75 mg 337.5 g 0 03/15/2015 documented in this encounter Miscellaneous Notes * Telephone Encounter - Georgia Rice RN - 03/15/2015 1413 EDT [facility] I called in the Androgel, but it needs a PA, they said they faxed it 2 days ago.? I had them refax,and will give to front staff. * Telephone Encounter - BurgessRobertoAddie - 03/14/2015 1313 EDT Medication(s) Requested: androgel Pharmacy: [facility] Last Refill Date: 11/08/14 Last Visit Date: 08/04/14 Next Visit Date: 10/23/2015 Is patient out of medication? yes Addie Burgess 03/14/2015 13:13 documented in this encounter Plan of Treatment Upcoming Encounters Date Type Department Care Team (Late st Contact Info) Description 09/09/2024 10:20 EST Office Visit [facility] Endocrinology - [address] [address] Day Littlejohn MD PhD [address] [place] [address] [address] [place] [address] documented as of this encounter Visit Diagnoses Diagnosis 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HCC-CMS)- Primary Panhypopituitarism documented in this encounter Discontinued Medications Medication Sig Discontinue Reason Start Date End Da te testosterone (ANDROGEL) 20.25 mg/1.25 gram (1.62 %) transdermal gel pumpIndications:Panhypo pituitarism (HCC-CMS) Apply 3 pump actuations topically daily for 90 days Daily Max: 60.75 mg Reorder 11/08/2014 03/14/2015 documented as of this encounter Care Teams Weight Training Instructor Relationship Specialty Start Date End Date Yossi Torres MD [address] [place] [address] [address] [place] [phone] PCP - General 04/17/11 03/14/16 documented as of this encounter
--- OUTSIDE RECORDS SUMMARY | 2024-03-05 15:44 | XMS_ITS | Encounter Summary ---
Author Organization [facility] Address [address] [place] [address] Care Team Providers Care Activated Sludge Attendant Name Role Phone Yossi Torres MD Primary Care Provider +1 [phone] Reason for Visit * Reason Onset Date Comments Results 10/13/2015 Encounter Details Date Type Department Care Team (Late st Contact Info) Description 10/13/2015 Telephone [facility] Endocrinology - [facility] [address] [place] [address] Belgica Chavez CDE [address] [facility] [address] [place] [address] Results Social History Tobacco Use [...] * Telephone Encounter - [place] Chavez - 10/13/2015 1205 EDT Spoke to lali about Bettina fluid intake. He is allow 100oz per day. His sodium level this am was 146H (136-145). Can increase fluids to 110oz per day. He is feeling fine, no increased thirst, no complaints. Retest the sodium again on October 16. Lali verbalized understanding. No barriers to learning noted. documented in this encounter Plan of Treatment Upcoming Encounters Date Type Department Care Team (Late st Contact Info) Description 09/09/2024 10:20 EST Office Visit [facility] Endocrinology - [facility] [address] [place], [place] [phone] Day Littlejohn MD PhD [address] [facility] [address] [place] [address] documented as of this encounter Visit Diagnoses Not on filedocumented in this encounter Care Teams Activated Sludge Attendant Relationship Specialty Start Date End Date Yossi Torres MD [address] [place] [address] [address] [place] [phone] PCP - General 04/17/11 03/14/16 documented as of this encounter
--- OUTSIDE RECORDS SUMMARY | 2024-03-05 15:44 | XMS_ITS | Encounter Summary ---
Author Organization [facility] Address [address] [place] [address] Care Team Providers Care Plastic Finisher Name Role Phone Yossi Torres MD Primary Care Provider [phone] Reason for Visit * Reason Onset Date Comments Labs Only 08/24/2015 Encounter Details Date Type Department Care Team (Late st Contact Info) Description 08/24/2015 Telephone [facility] Endocrinology - [facility] [address] [place] [address] Wilder Zaidi DO [address] [facility] [address] [place] [address] Labs Only Social History Tobacco [...] * Telephone Encounter - [place] Chavez - 08/25/2015 1512 EST Telephone call to Amy. Santoyo detailed message on voicemail. Call back if any questions or problems. * Telephone Encounter - Wilder Zaidi DO - 08/25/2015 1037 EST No change in dose or fluid restriction. Repeat labs in 3 months. Sooner if there is a change in activity or behavior. * Telephone Encounter - [place] Chavez - 08/25/2015 1014 EST Sodium drawn on 08/14/15 was 141 (136-145) * Telephone Encounter - Georgia Condon - 08/24/2015 1346 EST Reason for Call: Labs Only Summary/Symptoms: Patient had labs drawn on 08/14/15 at [facility], called for results. Not in [facility]. Georgia Condon 08/24/2015 13:47 documented in this encounter Plan of Treatment Upcoming Encounters Date Type Department Care Team (Late st Contact Info) Description 09/09/2024 10:20 EST Office Visit [facility] Endocrinology - [address] [phone] Day Littlejohn MD PhD [address] [facility] [address] [place] [address] documented as of this encounter Visit Diagnoses Not on filedocumented in this encounter Care Teams Plastic Finisher Relationship Specialty Start Date End Date Yossi Torres MD [address] [place] [address] [address] [place] [phone] PCP - General 04/17/11 03/14/16 documented as of this encounter
--- OUTSIDE RECORDS SUMMARY | 2024-03-05 15:44 | XMS_ITS | Encounter Summary ---
Author Organization [facility] Address [address] [place] [address] Care Team Providers Care Intermediate Frame Tender Name Role Phone Emilee Cody MD Primary Care Provider + Reason for Visit * Reason Onset Date Comments Medication Problem 07/12/2016 needs overrid e Encounter Details Date Type Department Care Team (Late st Contact Info) Description 07/12/2016 Telephone [facility] Endocrinology - [facility] [address] [place] [address] Wilder Zaidi, 62 [facility] [address] [place] [address] Medication Problem (needs override) Social History Tobacco Use Types Packs/Day Years [...] MOUTH EVERY DAY/ Blister pack 30 Tab 07/12/2016 05/27/2017 documented in this encounter Miscellaneous Notes * Telephone Encounter - Jennifer Au RN - 07/12/2016 1643 EST Script filled./JOSE * Telephone Encounter - Gladys Willingham - 07/12/2016 1251 EST Reason for Call: Medication Problem (needs override) Summary/Symptoms: Pt needs 30 day override for levothyroxine. Pt only has 4 tabs left. Gladys Wagnerfaustino 07/12/2016 12:51 documented in this encounter Plan of Treatment Upcoming Encounters Date Type Department Care Team (Late st Contact Info) Description 09/09/2024 10:20 EST Office Visit [facility] Endocrinology - [address] [address] Dya Littlejohn MD PhD [address] [place] [phone] documented as of this encounter Visit Diagnoses Not on filedocumented in this encounter Discontinued Medications Medication Sig Discontinue Reason Start Date End Da te levothyroxine (SYNTHROID) 150 mcg tablet TAKE ONE TABLET BY MOUTH EVERY DAY/ Blister pack Reorder 06/14/2016 07/12/2016 documented as of this encounter Care Teams Intermediate Frame Tender Relationship Specialty Start Date End Date Emilee Cody MD PCP - General 03/15/16 09/29/18 documented as of this encounter
--- OUTSIDE RECORDS SUMMARY | 2024-03-05 15:44 | XMS_ITS | Encounter Summary ---
Author Organization [facility] Address [address] [place] [address] Care Team Providers Care Dredge Pipe Installer Name Role Phone Yossi Torres MD Primary Care Provider +1 [phone] Reason for Visit * Reason Onset Date Comments Orders (Non Pre-visit) 11/08/2014 MEDICATIO NS Encounter Details Date Type Department Care Team (Late st Contact Info) Description 11/08/[address] [facility] Endocrinology - [facility] [address] [place] [address] Wilder Zaidi, 62 [facility] [address] [place] [address] Orders (Non Pre-visit) (MEDICATIONS) Social History Tobacco Use Types Packs/Day Years [...] Dispensed Refills Start Date End Da te hydrocortisone (CORTEF) 10 mg tablet Take 1 Tab by mouth 2 times daily Takes @@ 1200 & 1700 180 Tab 3 11/08/2014 testosterone (ANDROGEL) 20.25 mg/1.25 gram (1.62 %) transdermal gel pumpIndications:Panhypop ituitarism (HCC-CMS) Apply 3 pump actuations topically daily for 90 days Daily Max: 60.75 mg 75 g 1 11/08/2014 03/14/2015 documented in this encounter Miscellaneous Notes * Telephone Encounter - [place] Chavez - 11/08/2014 1556 EDT Phoned in androgel to [facility] in [facility]. Spoke to pharmacist. * Telephone Encounter - Tracy Nunez - 11/08/2014 1037 EDT Reason for Call: Orders (Non Pre-visit) Summary/Symptoms - Pt is new to his [facility], needing new orders of hydrocortisone and androgel sent [facility]. Also the androgel is currently 3 pumps 1x daily @ 1% per Lali (differs from script). Pt has 5 days left of both meds Tracy Nunez 11/08/2014 10:37 documented in this encounter Plan of Treatment Upcoming Encounters Date Type Department Care Team (Late st Contact Info) Description 09/09/2024 10:20 EST Office Visit [facility] Endocrinology - [address] [address] Day Littlejohn MD PhD [address] [place] [address] [place] [address] documented as of this encounter Visit Diagnoses Diagnosis 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HCC-CMS)- Primary Panhypopituitarism documented in this encounter Discontinued Medications Medication Sig Discontinue Reason Start Date End Da te hydrocortisone (CORTEF) 10 mg tablet Take 10 mg by mouth 2 times daily. Takes @@ 1200 & 1700 Reorder 05/29/2010 11/08/2014 testosterone (ANDROGEL) 20.25 mg/1.25 gram (1.62 %) transdermal gel pumpIndications:Panhypo pituitarism (HCC-CMS) Apply 1 pump actuation topically daily Daily Max: 20.25 mg Reorder 08/29/2014 11/08/2014 documented as of this encounter Care Teams Dredge Pipe Installer Relationship Specialty Start Date End Date Trembley, Yossi A, MD [address] [place] [address] [address] [place] [phone] PCP - General 04/17/11 03/14/16 documented as of this encounter
--- OUTSIDE RECORDS SUMMARY | 2024-03-05 15:44 | XMS_ITS | Encounter Summary ---
Author Organization [facility] Address [address] [place] [address] Care Team Providers Care Flight Test Shop Mechanic Name Role Phone Yossi Torres MD Primary Care Provider [phone] Reason for Visit * Reason Onset Date Comments Labs Only 01/29/2016 Results 01/31/2016 lab,7.22,[facility] Encounter Details Date Type Department Care Team (Late st Contact Info) Description 01/29/2016 Telephone [facility] Endocrinology - [address] [address] Georgia Rice RN Labs Only; Results (lab,7.22,[facility]) Social History Tobacco Use Types Packs/Day Years [...] * Telephone Encounter - [place] Chavez - 02/02/2016 1600 EDT Repeat sodium was normal at 136(136-145) Per Dr. Zaidi, continue current fluid restriction and repeat in 2 wks. [facility] notified. * Telephone Encounter - Day Littlejohn MD - 01/31/2016 1710 EDT Repeat the Na done in [place] and found slip in Dr. Zaidi's box. Level is 133 (z=[id number])---but last few draws 141-146. In October his fluid restriction was lightened but only from 100 to 110 ounces. (this is 3.3L) Pt weighs 83 kg--2.7 liters/d--but this does not factor in any diarrhea, sweating etc. Nurse reports that he is not ill,eats and drinks on own from measured out fluids that he is given. I doubt this was the factor. Is on 100 m cg DDAVP-1/2 tab every 8 hrs. Would repeat in AM as may have been influenced by recent dose of DDAVP Would want to prevent ON dehydration has been usual dosing. Talked to nurse--will take for redraw in AM. If low again as might be a fluke as generally his Na is 138-146 could lower fluid allowance. [facility] * Telephone Encounter - Alicia Chi - 01/31/2016 1549 EDT Reason for Call: Labs Only and Results Summary/Symptoms: [facility], wondering if lab results from 01.25 done at [facility] are available yet. Per Dr. Dejuan Ho out sick and will ask a covering. Will call back as soon as she has an answer. Alicia Chi 01/31/2016 15:49 * Telephone Encounter - Georgia Rice, RN - 01/29/2016 1234 EDT Received lab results from [facility] Resulted 01/26/16 Sodium-133 L ([id number]) documented in this encounter Plan of Treatment Upcoming Encounters Date Type Department Care Team (Late st Contact Info) Description 09/09/2024 10:20 EST Office Visit [facility] Endocrinology - [address] [address] Day Littlejohn MD PhD [address] [facility] [address] [place] [address] documented as of this encounter Visit Diagnoses Not on filedocumented in this encounter Care Teams Flight Test Shop Mechanic Relationship Specialty Start Date End Date Yossi Torres MD [address] [place] [address] 2 [place] [phone] PCP - General 04/17/11 03/14/16 documented as of this encounter
--- OUTSIDE RECORDS SUMMARY | 2024-03-05 15:44 | XMS_ITS | Encounter Summary ---
Author Organization [facility] Address [address] [place] [address] Care Team Providers Care General Farmworker Name Role Phone Yossi Torres MD Primary Care Provider [phone] Reason for Visit * Reason Onset Date Comments Discuss Test Results 02/03/2015 Sodium Leve ls Encounter Details Date Type Department Care Team (Late st Contact Info) Description 02/03/2015 Telephone [facility] Endocrinology - [facility] [address] [place] [address] Wilder Zaidi, 62 [facility] [address] [place] [address] Discuss Test Results (Sodium Levels) Social History Tobacco Use Types Packs/Day Years [...] * Telephone Encounter - [place] Chavez - 02/03/2015 0929 EDT Called [facility] drawn 01/31/15 Na level: 141 Unchanged from previous 2 wks ago. Continue current fluid restricton of 80 oz and retest again in 2 wks. * Telephone Encounter - Lauren Slade - 02/03/2015 0901 EDT Reason for Call: Discuss Test Results Summary/Symptoms: Jon[facility] at [facility] calling to receive [facility] Sodium levels he had done at [facility]. Please call back to discuss. Jonatan states as soon as possible because he will notbe available all day. Lauren Slade 02/03/2015 9:01 documented in this encounter Plan of Treatment Upcoming Encounters Date Type Department Care Team (Late st Contact Info) Description 09/09/2024 10:20 EST Office Visit [facility] Endocrinology - [address] [address] Day Littlejohn MD PhD [address] [facility] [address] [place] [address] documented as of this encounter Visit Diagnoses Not on filedocumented in this encounter Care Teams General Farmworker Relationship Specialty Start Date End Date Yossi Torres MD [address] [place] [address] 2 [place] [phone] PCP - General 04/17/11 03/14/16 documented as of this encounter
--- OUTSIDE RECORDS SUMMARY | 2024-03-05 15:44 | XMS_ITS | Encounter Summary ---
Author Organization [facility] Address [address] [place] [address] Care Team Providers Care Glove Presser Name Role Phone Yossi Torres MD Primary Care Provider +[phone] Emilee Cody MD Primary Care Provider + Reason for Visit * Reason Onset Date Comments Prior Auth, Medication 03/13/2016 levothyro xine Encounter Details Date Type Department Care Team (Late st Contact Info) Description 03/13/2016 Telephone [facility] Endocrinology - [facility] [address] [place] [address] Wilder Zaidi, 62 [facility] [address] [place] [address] Prior Auth, Medication (levothyroxine) Social History Tobacco Use Types Packs/Day Years [...] BY MOUTH EVERY DAY 90 Tab 1 03/18/2016 05/01/2016 documented in this encounter Miscellaneous Notes * Telephone Encounter - Shruti Martin - 03/14/2016 1616 EDT Per insurance Levothyroxin does not require prior auth. They require that patient fills a 90 day supply unless there is a medical reason he can't. If 90 day supply is okay, please send new prescription to pharmacy. * Telephone Encounter - She Durant - 03/13/2016 1311 EDT Miguel Angel's foster care case manager called to advise that the pharmacy has been faxing information for Pt's levothyroxine that she believes needs a PA for bubble packs with his insurance. She wasn't sure which fax machine paperwork was sent too. Could not verify if pt out of medication- routing hp documented in this encounter Plan of Treatment Upcoming Encounters Date Type Department Care Team (Late st Contact Info) Description 09/09/2024 10:20 EST Office Visit [facility] Endocrinology - [address] [address] Day Littlejohn MD PhD [address] [place] [address] [address] [place] [address] documented as of this encounter Visit Diagnoses Not on filedocumented in this encounter Discontinued Medications Medication Sig Discontinue Reason Start Date End Da te levothyroxine (SYNTHROID) 150 mcg tablet TAKE ONE TABLET BY MOUTH EVERY DAY Reorder 05/04/2015 03/18/2016 documented as of this encounter Care Teams Glove Presser Relationship Specialty Start Date End Date Yossi Torres MD [address] [place] [address] [address] [place] [phone] PCP - General 04/17/11 03/14/16 Emilee Cody MD [address] [place] [address] [address] [place] [phone] PCP - General 03/15/16 09/29/18 documented as of this encounter
--- OUTSIDE RECORDS SUMMARY | 2024-03-05 15:44 | XMS_ITS | Encounter Summary ---
Author Organization [facility] Address [address] [place] [address] Care Team Providers Care Pinion Sorter Name Role Phone Yossi Torres MD Primary Care Provider +1 [phone] Reason for Visit * Reason Onset Date Comments Prior Auth, Medication 01/17/2015 Encounter Details Date Type Department Care Team (Late st Contact Info) Description 01/17/2015 Telephone [facility] Endocrinology - [facility] [address] [place] [address] Wilder Zaidi, 62 [facility] [address] [place] [address] Prior Auth, Medication Social History Tobacco Use [...] * Telephone Encounter - Lucía Bundy - 01/19/2015 1650 EDT Rcvd fax from [place] with APPROVAL for: Drug NDC # and Name: [id number] - Levothyroxin Tab 150 mcg Tracking #: [id number] PA #: [id number] Dates: 01/19/2015- 01/20/2016 Qty / Days Supply Restrictions: [place] ID#: [id number] Called Pharmacy and they had all ready blister packed and ready to go as soon as we provided approval. * Telephone Encounter - Lucía Bundy - 01/18/2015 1104 EDT [facility] signed form back from Dr. Zaidi and faxed to [place] Medicaid at [phone] to initiate PA process. * Telephone Encounter - Dina Otero - 01/17/2015 1712 EDT Received fax for Levothyroxine override to blister pack - the pharmacy indicates the patient lives in a fci and they can only fill 30 day supply at a time. Completed [place] Exception to required 90 day maintenance medication fill form & provided to Dr. Zaidi for signature. * Telephone Encounter - Gladys Willingham - 01/17/2015 0908 EDT Reason for Call: Prior Auth, Medication Summary/SymptomsPt said that [facility] needs PA for levothyroxine 30 day supply not 90 day supply for bubble wrap. Please call if you have questions. Onset and Duration? na Urgent? Gladys Willingham 01/17/2015 9:08 documented in this encounter Plan of Treatment Upcoming Encounters Date Type Department Care Team (Late st Contact Info) Description 09/09/2024 10:20 EST Office Visit [facility] Endocrinology - [facility] [address] [place] [address] Day Littlejohn MD PhD [address] [place] [address] [address] [place] [address] documented as of this encounter Visit Diagnoses Not on filedocumented in this encounter Care Teams Pinion Sorter Relationship Specialty Start Date End Date Yossi Torres MD [address] [place] [address] [address] [place] [phone] PCP - General 04/17/11 03/14/16 documented as of this encounter
--- OUTSIDE RECORDS SUMMARY | 2024-03-05 15:44 | XMS_ITS | Encounter Summary ---
Author Organization [facility] Address [address] [place] [address] Care Team Providers Care Field Clerk Name Role Phone Emilee Cody MD Primary Care Provider + Reason for Visit * Reason Onset Date Comments Medication Questions 07/16/2016 Encounter Details Date Type Department Care Team (Late st Contact Info) Description 07/16/2016 Telephone [facility] Endocrinology - [facility] [address] [place] [address] Wilder Zaidi, [address] [facility] [address] [place] [address] Medication Questions Social History Tobacco [...] Telephone Encounter - Jennifer Au RN - 07/16/2016 1026 EST Script was filled Friday./JOSE * Telephone Encounter - Georgia Condon - 07/16/2016 0812 EST Reason for Call: Medication Questions Summary/Symptoms: Patient needs a refill for levothyroxine. In order to have it blister packed, an insurance override is required. Please call pharmacy. Patient will be out of med tomorrow, 07/17 Georgia Condon 07/16/2016 8:12 documented in this encounter Plan of Treatment Upcoming Encounters Date Type Department Care Team (Late st Contact Info) Description 09/09/2024 10:20 EST Office Visit [facility] Endocrinology - [address] [address] Day Littlejohn MD PhD [address] [place] [address] [address] [place] [address] documented as of this encounter Visit Diagnoses Not on filedocumented in this encounter Care Teams Field Clerk Relationship Specialty Start Date End Date Emilee Cody MD PCP - General 03/15/16 09/29/18 documented as of this encounter
--- OUTSIDE RECORDS SUMMARY | 2024-03-05 15:44 | XMS_ITS | Encounter Summary ---
Author Organization [facility] Address [address] [place] [address] Care Team Providers Care Emergency Medicine Nurse Practitioner Name Role Phone Yossi Torres MD Primary Care Provider [phone] Reason for Visit * Reason Comments Seizures * Referral (Routine) - Closed Specialty Diagnoses / Procedures Referred By [facility] Referred To Contact Neurology Diagnoses Seizure ([facility]) Yossi Torres MD [address] [place] [address] [address] [place] [address] [facility] [address] [place] [address] Referral ID Status Reason Start Date Expiration Date Visits Re quested Visits Authorized [id number] Closed 1 1 Encounter Details Date Type Department Care Team (Late st Contact Info) Description 12/27/2014 10:30 EDT Office Visit [facility] Neurology [facility] [address] [place], [place] [id number] Dioni Jovel MD [address] [place] [address] Seizure disorder ([facility]) (Primary Dx) Social History Tobacco Use Types [...] Sign Reading Time Taken Comments Blood Pressure - - Pulse 80 12/27/2014 1100 EDT Temperature - - Respiratory Rate 12 12/27/2014 1100 EDT Oxygen Saturation - - Inhaled Oxygen Concentration - - Weight - - Height - - Body Mass Index - - documented in this encounter Discharge Diagnoses Diagnosis 345.90 EPILEPSY NOS W/O MENTN INTRACTABLE[ICD-9-CM] documented in this encounter Ordered Prescriptions Prescription Sig Dispensed Refills Start Date End Da te zonisamide (ZONEGRAN) 100 mg capsule Take 1 Cap by mouth daily 90 Each 3 12/27/2014 documented in this encounter Progress Notes * Dioni Jovel MD - 12/27/2014 1101 EDT This office note has been dictated. documented in this encounter Consult Notes * Dioni Jovel MD - 12/27/2014 1207 EDT [facility] NEUROLOGY CONSULTATION - 12/27/2014 HISTORY: The patient is a 24-year-old right-handed gentleman seen at request of Dr Torres for evaluation of seizures. The patient was accompanied by his guardian and greenhouse manager. I also reviewed records from [facility]. 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 The surgery was complicated by bithalamic and right frontal stroke. His other deficits post-surgery include left hemiparesis, cortical blindness, urine incontinence, dysarthria and gait disorder. The patient also had developed panhypopituitarism with central diabetes insipidus. He is followed by endocrinology. He has been on DDAVP, levothyroxine, hydrocortisone. The patient had followup MRIs with most recent MRI in 2010, which did not show any recurrence of craniopharyngioma. The patient also developed seizures post-surgery. We do not have the exact semiology and description of seizures. CURRENT MEDICATIONS: Include Zonegran 75 mg daily. His last seizure was more than 6 years ago. Apparently 1 month ago while he was with home provider in the backseat he had a spell where he was acting differently and had a possible seizure. I did not however have details of his seizure description. He was taken to outside hospital. Apparently labs were taken for blood glucose in the 40s. There was no definite infection, but I do not have any records. He was put on Keppra 500 mg b.i.d. in addition to Zonegran. He did not have any subsequent seizures. He is able to tolerate the medication.He is on fluid restriction. Apparently his sodium was stable. There were no other infections. He does not drink any alcohol. REVIEW OF SYSTEMS: Otherwise is noncontributory. No headaches, no diplopia. His baseline dysarthriaremains unchanged and gait remains unchanged. Left-sided weakness remains unchanged. Denies any chest pain, shortness of breath, fever. He has urine incontinence. A 13-system review of systems was obtained, which was negative except mentioned in body of report. PAST MEDICAL HISTORY: Craniopharyngioma status post resection 2004, with post- surgical complications including panhypopituitarism, diabetes insipidus, bithalamic and right frontal stroke, left hemiparesis, cortical blindness and urine incontinence. MEDICATIONS: Zonegran 25 mg, 3 tablets daily at bedtime. Desmopressin 0.1 mg half tablet t.i.d. for diabetes insipidus. Vitamin D. Melatonin 3 mg at bedtime for sleep. Trazodone 50 mg at bedtime for sleep. Seroquel 250 mg at bedtime for sleep. Cortef 10 mg, 2 in the morning, 1 at noon and 1 tablet at 7:00 p.m. for adrenal insufficiency. Levothyroxine 150 mg b.i.d. Levetiracetam 500 mg b.i.d. started recently. AndroGel. ALLERGIES: LOPID. SOCIAL HISTORY: Nonsmoker, nonalcoholic. FAMILY HISTORY: Negative for seizures. OBJECTIVE: Pulse 80 per minute, respirations 12. He is awake. He follows 1-step commands intermittently. Pupils were equal, round, react to light and accommodation. He was unable to fixate. He has dysarthria but no clear language output. He makes some guttural sounds. He can look in both directionswith full visual medellin. This examination was compromised because of lack of fixation. There was slight left central facial weakness. Tongue was midline. Neck flexors, neck extensors were normal. MOTOR EXAMINATION: Individual muscle strength could not be checked. He has probable left pronator drift. His strength otherwise was 5/5; however, he is known to have mild residual left hemiparesis from right frontal stroke. As mentioned above, individual muscle strength could not be checked. His reflexes were brisk, 3, but they were symmetrical. Cerebellar and sensory examination could not be obtained. He walks with the help of 1 person assistance, but does not use any other ambulatory assistive devices. ASSESSMENT AND PLAN: A 24-year-old gentleman with history of craniopharyngioma, status post resection with post-surgical complications of panhypopituitarism, diabetes insipidus, cortical blindness, bithalamic and right frontal stroke, seizure disorder, who had been doing well with Zonegran 75 mg daily until a month ago, when he had a possible breakthrough seizure in the setting of blood glucose of 40s. Otherwise, no definite electrolyte imbalance or any associated infection or provoking factors. His deficits otherwise remain unchanged. We discussed further management. Instead of adding a 2nd seizure medication, especially if is taking a small dose of Zonegran, it is more appropriate to optimize 1 seizure medication; therefore, I amgoing to increase the Zonegran to 100 mg daily. Keppra will be decreased to 500 mg daily, and after1 week will be discontinued. Since his neuro deficits are stable and there was possible provoking factor of possible hypoglycemia, I am going to hold off on imaging studies and/or EEG; however, if he continues to have seizures or progressive headache or other neuro deficit, then MRI of the brain and EEG will be obtained. MRI is not easy as he will require general anesthesia. He is also followed with rabble furnace tender for hypoglycemia and panhypopituitarism. He will follow with me in a few months or sooner if problems come. Dioni Jovel MD 11 13 AM - Dioni Jovel MD cn Dictation ID: [id number] documented in this encounter Plan of Treatment Upcoming Encounters Date Type Department Care Team (Late st Contact Info) Description 09/09/2024 10:20 EST Office Visit [facility] Endocrinology - [place] [address] [place], [place] [id number] Day Littlejohn MD PhD [address] [facility] [address] [place] [address] documented as of this encounter Visit Diagnoses Diagnosis Seizure disorder ([facility])- Primary Unspecified epilepsy without mention of intractable epilepsy documented in this encounter Discontinued Medications Medication Sig Discontinue Reason Start Date End Da te ZONISAMIDE ORAL Take 75 mg by mouth at bedtime. 08/24/2010 12/27/2014 documented as of this encounter Care Teams Emergency Medicine Nurse Practitioner Relationship Specialty Start Date End Date Yossi Torres MD [address] [place] [phone] PCP - General 04/17/11 03/14/16 documented as of this encounter
--- OUTSIDE RECORDS SUMMARY | 2024-03-05 15:44 | XMS_ITS | Encounter Summary ---
Author Organization [facility] Address [address] [place] [address] Care Team Providers Care Vice President Of Product Marketing Name Role Phone Yossi Torres MD Primary Care Provider [phone] Emilee Cody MD Primary Care Provider + Reason for Visit * Reason Onset Date Comments Discuss Test Results 02/20/2015 Sodium Chec k last week Encounter Details Date Type Department Care Team (Late st Contact Info) Description 02/20/2015 Telephone [facility] Endocrinology - [facility] [address] [place] [address] Wilder Zaidi, [address] [facility] [address] [place] [address] Discuss Test Results (Sodium Check last week) Social History Tobacco Use Types Packs/Day Years [...] Telephone Encounter - Georgia Rice RN - 02/21/2015 1133 EDT Phone call to Lali Informed her of Dr. Zaidi's review, and instructions below. Verbalizes understanding with no barriers. * Telephone Encounter - Wilder Zaidi DO - 02/21/2015 1131 EDT Sodium normal. Continue current dose of DDAVP and fluid restriction. Repeat labs in 6 weeks or if there is a change in symptoms. * Telephone Encounter - Georgia Rice, RN - 02/21/2015 1117 EDT Phone call to [facility] Resulted on 02/15/15 Sodium-141 * Telephone Encounter - Addie Burgess - 02/20/2015 1512 EDT Reason for Call: Discuss Test Results Summary/Symptoms: Please call Lali's mobile with Sodium check results. Addie Burgess 02/20/2015 15:12 * Telephone Encounter - Belgica Camara V. - 02/20/2015 1248 EDT Please call Jonatan or aLli at [facility] with Sodium Check results done at [place] last week. documented in this encounter Plan of Treatment Upcoming Encounters Date Type Department Care Team (Late st Contact Info) Description 09/09/2024 10:20 EST Office Visit [facility] Endocrinology - [facility] [address] [place] [address] Day Littlejohn MD PhD [address] [facility] [address] [place] [address] documented as of this encounter Visit Diagnoses Not on filedocumented in this encounter Care Teams Vice President Of Product Marketing Relationship Specialty Start Date End Date Yossi Torres MD [address] [place] [address] [address] [place] [phone] PCP - General 04/17/11 03/14/16 Emilee Cody MD [address] [place] [address] [phone] PCP - General 03/15/16 09/29/18 documented as of this encounter
--- OUTSIDE RECORDS SUMMARY | 2024-03-05 15:44 | XMS_ITS | Encounter Summary ---
Author Organization [facility] Address [address] [place] [address] Care Team Providers Care Transportation Security Officer Name Role Phone Yossi Torres MD Primary Care Provider [phone] Reason for Visit * Reason Onset Date Comments Diarrhea 08/28/2015 2 days now Medication Questions 08/28/2015 Hydrocortis one Coordination Of Care 08/30/2015 Medication clarification Encounter Details Date Type Department Care Team (Late st Contact Info) Description 08/28/2015 Telephone [facility] Endocrinology - [facility] [address] [place] [address] Wilder Zaidi, [address] [facility] [address] [place] [address] Diarrhea (2 days now); Medication Questions (Hydrocortisone); Coordination Of Care (Medication clarification ) Social History Tobacco Use Types Packs/Day [...] Telephone Encounter - Georgia Rice RN - 08/30/2015 9271 EST Phone call to Belgica at the [facility] Miguel Angel is not having diarrhea any more. He is going more often, but the BM's are formed. He is notsick in any other way. I advised that they do not double Hydrocortisone at this time. She did not know how to double because he takes it three times a day. 20 in am 10 at noon, and 10 at night. Verbalizes understanding with no barriers. * Telephone Encounter - Anjelica Saenz - 08/30/2015 0820 EST Belgica from [facility] would like to verify the medication that Dr. Stanley wants them to increase the dose on. He continues to have diarrhea. Pls advise * Telephone Encounter - Gladys Huang RN - 08/29/2015 0922 EST Images from the original note were not included. Message Received: Yesterday ? Guerrero Gonzalez MD Sinclair, Barbara, RN ? Yes it should be doubled, the group home physician should be notified so that he finds out thecause of the diarrhea, double dose as long as she is sick Phone call to [facility]. Above message given. Erick Kidd no longer has diarrhea so will not double dose. Verbalized understanding. No barriers to understanding. * Telephone Encounter - Gladys Huang RN - 08/28/2015 1530 EST Phone call to Adriane at [facility]. Diarrhea since mid day yesterday. Today 4 times since 8 am. No other symptoms. Feeling ok. No fever. Eating well. Drinking good. Will send to Dr. Stanley for review. * Telephone Encounter - Alicia Chi - 08/28/2015 1501 EST Reason for Call: Diarrhea and Medication Questions Summary/Symptoms: Per Adriane, caregiver at the [facility], pt has had diarrhea for 2 days now and pt's family is wondering if the hydrocortisone should be doubled. Adriane requesting a call back today when a moment. Please call her back at [phone] or [phone]. Alicia Chi 08/28/2015 15:01 documented in this encounter Plan of Treatment Upcoming Encounters Date Type Department Care Team (Late st Contact Info) Description 09/09/2024 10:20 EST Office Visit [facility] Endocrinology - [address] [address] Day Littlejohn MD PhD [address] [facility] [address] [place] [address] documented as of this encounter Visit Diagnoses Not on filedocumented in this encounter Care Teams Transportation Security Officer Relationship Specialty Start Date End Date Yossi Torres MD [address] [place] [address] [facility] [address] [place] [phone] PCP - General 04/17/11 03/14/16 documented as of this encounter
--- OUTSIDE RECORDS SUMMARY | 2024-03-05 15:44 | XMS_ITS | Encounter Summary ---
Author Organization [facility] Address [address] [place] [address] Care Team Providers Care Soap Chipper Name Role Phone Emilee Cody MD Primary Care Provider + Reason for Visit * Reason Onset Date Comments Results 04/14/2017 Encounter Details Date Type Department Care Team (Late Contact Info) Description 04/14/2017 Telephone [facility] Endocrinology [address] [address] Hafsa Babcock RN [address] [place] [address] Results Social History Tobacco Use Types Packs/Day [...] encounter Miscellaneous Notes * Telephone Encounter - Hafsa Babcock RN - 04/14/2017 1451 EDT Called Patients' sister Bettina to inform her lab results within normal limits , No change in DDAVP dosage. Please extend information to senior care. documented in this encounter Plan of Treatment Upcoming Encounters Date Type Department Care Team (Late st Contact Info) Description 09/09/2024 10:20 EST Office Visit [facility] Endocrinology [address] [address] Day Littlejohn MD PhD [address] [place] [address] documented as of this encounter Visit Diagnoses Not on filedocumented in this encounter Care Teams Soap Chipper Relationship Specialty Start Date End Date Emilee Cody MD PCP - General 03/15/16 09/29/18 documented as of this encounter
--- OUTSIDE RECORDS SUMMARY | 2024-03-05 15:44 | XMS_ITS | Encounter Summary ---
Author Organization [facility] Address [address] [place] [address] Care Team Providers Care Manager Of Security Name Role Phone Yossi Torres MD Primary Care Provider [phone] Reason for Visit * Reason Onset Date Comments Discuss Test Results 06/20/201506/12 [facility] Encounter Details Date Type Department Care Team (Late st Contact Info) Description 06/20/2015 Telephone [facility] Endocrinology - [facility] [address] [place] [address] Wilder Zaidi DO [address] [facility] [address] [place] [address] Discuss Test Results (06/12 [facility] ) Social History Tobacco Use Types Packs/Day [...] * Telephone Encounter - Belgica Chavez - 06/22/2015 8034 EST Spoke to Lali, the nurse at facility where Miguel Angel lives. She verbalized understanding. * Telephone Encounter - Wilder Zaidi DO - 06/21/2015 1358 EST Sodium was normal. Recheck in 2 months or if there is a change in behavior or urine output etc. * Telephone Encounter - Belgica Chavez - 06/21/2015 1322 EST See scanned documents: 06/12/15 Sodium 145 (136-145) * Telephone Encounter - Marie Sanchezra - 06/20/2015 1522 EST Reason for Call: Discuss Test Results Summary/Symptoms: Lali from [facility] calling for results. States kabs were done 06/12 [facility]. Please call. Jen Sanchez 06/20/2015 15:22 documented in this encounter Plan of Treatment Upcoming Encounters Date Type Department Care Team (Late st Contact Info) Description 09/09/2024 10:20 EST Office Visit [facility] Endocrinology - [address] [address] Day Littlejohn MD PhD [address] [place] [address] [address] [place] [address] documented as of this encounter Visit Diagnoses Not on filedocumented in this encounter Care Teams Manager Of Security Relationship Specialty Start Date End Date Yossi Torres MD [address] [place] [address] [address] [place] [phone] PCP - General 04/17/11 03/14/16 documented as of this encounter
--- OUTSIDE RECORDS SUMMARY | 2024-03-05 15:44 | XMS_ITS | Encounter Summary ---
Author Organization [facility] Address [address] [place] [address] Care Team Providers Care Net Maker Name Role Phone Yossi Torres MD Primary Care Provider [phone]- [phone] Reason for Visit * Reason Onset Date Comments Appointment Related 02/06/2016 was schedule d for 03/18/16 Encounter Details Date Type Department Care Team (Late st Contact Info) Description 02/06/2016 Telephone [facility] Endocrinology - [facility] [address] [place] [address] Wilder Zaidi, [address] [facility] [address] [place] [address] Appointment Related (was scheduled for 03/18/16) Social History Tobacco Use Types Packs/Day Years [...] * Telephone Encounter - Josefina Rivera - 02/06/2016 1504 EDT Reason for Call: Appointment Related Summary/Symptoms: [facility] is wondering when patient's upcoming appointment was. The 03/18/16 was canceled, and not only would they like a call when it is scheduled, but his sister Bettinaas well. Josefina Rivera 02/06/2016 15:04 documented in this encounter Plan of Treatment Upcoming Encounters Date Type Department Care Team (Late st Contact Info) Description 09/09/2024 10:20 EST Office Visit [facility] Endocrinology - [address] [address] Day Littlejohn MD PhD [address] [facility] [address] [place] [address] documented as of this encounter Visit Diagnoses Not on filedocumented in this encounter Care Teams Net Maker Relationship Specialty Start Date End Date Yossi Torres MD [address] [place] [address] [address] [place] [phone] PCP - General 04/17/11 03/14/16 documented as of this encounter
--- OUTSIDE RECORDS SUMMARY | 2024-03-05 15:45 | XMS_ITS | Encounter Summary ---
Author Organization [facility] Address [address] [place] [address] Care Team Providers Care Bundle Helper Name Role Phone Akil Serrano MD Primary Care Provider [phone] Reason for Visit * Reason Onset Date Comments Results 11/26/2010 Sodium 151 up fr om 148 last week on 80 oz daily water (increase from baseline) - I told her to go up to 100 oz daily water and recheck Encounter Details Date Type Department Care Team (Late st Contact Info) Description 11/26/2010 Telephone [facility] Endocrinology - [address] [address] Ramon Lucero MD [address] [place] [address], [address] [phone] Results (Sodium 151 up from 148 last week on 80 oz daily water (increase from baseline) - I told her to go up to 100 oz daily water and recheck ) Social History Tobacco Use Types Packs/Day [...] encounter Miscellaneous Notes * Telephone Encounter - Ramon Lucero - 11/26/2010 1541 EDT Sodium 151 up from 148 last week on 80 oz daily water (increase from baseline) - I told her to go up to 100 oz daily water and recheck . documented in this encounter Plan of Treatment Upcoming Encounters Date Type Department Care Team (Late st Contact Info) Description 09/09/2024 10:20 EST Office Visit [facility] Endocrinology - [address] [phone] Day Littlejohn MD PhD [address] [facility] [address] [place] [phone] documented as of this encounter Visit Diagnoses Not on filedocumented in this encounter Care Teams Bundle Helper Relationship Specialty Start Date End Date Akil Serrano MD [address] [facility] [address] [place] [address] PCP - General 02/21/10 04/16/11 documented as of this encounter
--- OUTSIDE RECORDS SUMMARY | 2024-03-05 15:45 | XMS_ITS | Encounter Summary ---
Author Organization [facility] Address [address] [place] [address] Care Team Providers Care Learning Coach Name Role Phone Yossi Torres MD Primary Care Provider [phone] Reason for Visit * Reason Comments Other Encounter Details Date Type Department Care Team (Late st Contact Info) Description 02/02/2013 Refill [facility] Endocrinology - [facility] [address] [place] [address] Wilder Zaidi, 62 [facility] [address] [place] [address] Other Social History Tobacco Use Types [...] Dispensed Refills Start Date End Da te desmopressin (DDAVP) 0.1 mg tablet Take 1 tab PO q AM, 1/2 tab q PM - pt needs appt for further refills. 45 Tab 0 02/03/2013 03/03/2013 documented in this encounter Plan of Treatment Upcoming Encounters Date Type Department Care Team (Late st Contact Info) Description 09/09/2024 10:20 EST Office Visit [facility] Endocrinology - [facility] [address] [place], [place] [id number] Day Littlejohn MD PhD 62 [facility] [address] [place] [address] documented as of this encounter Visit Diagnoses Not on filedocumented in this encounter Discontinued Medications Medication Sig Discontinue Reason Start Date End Da te desmopressin (DDAVP) 0.1 mg tablet TAKE ONE TABLET BY MOUTH EVERY MORNING AND ONE HALF TABLET AT BEDTIME Reorder 01/12/2013 02/02/2013 documented as of this encounter Care Teams Learning Coach Relationship Specialty Start Date End Date Yossi Torres MD [address] [place] [phone] PCP - General 04/17/11 03/14/16 documented as of this encounter
--- OUTSIDE RECORDS SUMMARY | 2024-03-05 15:45 | XMS_ITS | Encounter Summary ---
Author Organization [facility] Address [address] [place] [address] Care Team Providers Care Print Line Feeder Name Role Phone Yossi Torres MD Primary Care Provider Emilee Cody MD Primary Care Provider + Ren Vaz MD Primary Care Provider [phone] Reason for Visit * Reason Comments Other Encounter Details Date Type Department Care Team (Late st Contact Info) Description 07/27/2013 Refill [facility] Endocrinology - [facility] [address] [place] [address] Wilder Zaidi, 62 [facility] [address] [place] [address] Other Social History Tobacco Use [...] te desmopressin (DDAVP) 0.1 mg tablet Take 0.5 Tabs by mouth 3 times daily. Take 1/2 tab three times daily 45 Tab 3 07/29/2013 documented in this encounter Plan of Treatment Upcoming Encounters Date Type Department Care Team (Late st Contact Info) Description 09/09/2024 10:20 EST Office Visit [facility] Endocrinology - [facility] [address] [place], [place] [phone] Day Littlejohn MD PhD 62 [facility] [address] [place] [address] documented as of this encounter Visit Diagnoses Not on filedocumented in this encounter Discontinued Medications Medication Sig Discontinue Reason Start Date End Da te desmopressin (DDAVP) 0.1 mg tablet TAKE ONE TABLET BY MOUTH EVERY DAY AND TAKE 1/2 TABLET EVERY EVENING Dose adjustment 04/19/2013 07/29/2013 documented as of this encounter Care Teams Print Line Feeder Relationship Specialty Start Date End Date Yossi Torres MD [address] [place] [address] DR BUITRAGO [address] [place] [phone] PCP - General 04/17/11 03/14/16 Emilee Cody MD [address] [place] [address] DR BUITRAGO [address] [place] [phone] PCP - General 03/15/16 09/29/18 Ren Vaz MD [address] [place] [address] [place] [address] PCP - General 09/30/18 documented as of this encounter
--- OUTSIDE RECORDS SUMMARY | 2024-03-05 15:45 | XMS_ITS | Encounter Summary ---
Author Organization [facility] Address [address] [place] [address] Care Team Providers Care Form Raiser Name Role Phone Yossi Torres MD Primary Care Provider [phone] Reason for Visit * Reason Comments Hypothyroidism F/U Encounter Details Date Type Department Care Team (Latest Contact Info) Description 08/04/2014 14:20 EST Office Visit [facility] Endocrinology - [facility] [address] [place] [address] Wilder Zaidi, DO 62 [facility] [address] [place] [address] 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HCC-CMS) (Primary Dx); 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CMS-HCC) (HCC-CMS); Gonadotropin deficiency (CMS-HCC) (HCC-CMS); Secondary hypothyroidism Social History Tobacco [...] Sign Reading Time Taken Comments Blood Pressure 102/78 08/04/2014 1428 EST Pulse 64 08/04/2014 1428 EST Temperature - - Respiratory Rate - - Oxygen Saturation - - Inhaled Oxygen Concentration - - Weight 83.5 kg (184 lb) 08/04/2014 1428 EST Height 170.2 cm (5' 7.01) 08/04/2014 1428 EST Body Mass Index 28.81 08/04/2014 1428 EST documented in this encounter Discharge Diagnoses Diagnosis 253.2 PANHYPOPITUITARISM[ICD-9-CM] 253.5 DIABETES INSIPIDUS[ICD-9-CM] 253.4 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 Zaidi will inform you of your lab results by phone or mail within 2 weeks. If you do not receive your test results after two weeks please contact the office. 2. Call with questions, concerns or change in symptoms. 3. Follow-up in 6 months documented in this encounter Progress Notes * Wilder Zaidi DO - 08/04/2014 1518 EST SUBJECTIVE: Mr Miguel Angel Burgos is a 24-year-old male who returns to the endocrine clinic today for 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 Miguel Angel was accompanied by his sister, Bettina, today. He seems to be doing well. With regards to his secondary adrenal insufficiency, he takes hydrocortisone 20 mg in the morning, 10 mg in the afternoon and 10 mg in the evening. His weight has remained stable. It is up somewhat today, but he was wearing his boots when he was weighed. Appetite is reportedly stable according to his sister. No complaints of nausea or emesis. His energy level has been reportedly unchanged. No need to stress dose since I saw him back in January. With regards to his secondary hypogonadism, currently on AndroGel 1% 5 g daily. He has had low-normal levels of testosterone in the past, but any attempt to increase his AndroGel has caused significant agitation and irritation, so we are maintaining him on a low dose of testosterone to help protecthis bones, perhaps derive some energy for him. There are some areas of skin irritation and hair growth at the site of application, but no other issues. No significant change in urinary pattern. He iscurrently on 60 ounces of fluids during the winter, which we usually increase to 70 ounces over thesummer. His most recent sodium was 139 drawn on 08/01/2014. Prior to that, on 07/11/2013, he was 145. He has no significant changes in his bowels. He does not appear to have any temperature intolerance,although it is difficult to tell in this patient. He does not answer those type of questions. He iscurrently on levothyroxine daily. They give it to him first thing in the morning on an empty stomach. His diabetes insipidus, he is currently on 0.05 mg of DDAVP 3 times a day. He occasionally will have some wetness in his diaper when he wakes up, but does not appear to have significant breakthrough polyuria during the evening. No significant changes in his mood. PAST MEDICAL HISTORY: Reviewed as documented in electronic medical record. MEDICATIONS: Reviewed as documented in electronic medical record. ALLERGIES: Reviewed as documented in electronic medical record. OBJECTIVE: Physical exam: Blood pressure is 102/78, pulse is 64, weight is 184 pounds. BMI is 29. In general, patient is a 24-year-old male in no acute distress. HEENT: Eyes: There does not appear isha any lid lag or periorbital edema noted, though patient cooperation was somewhat difficult. Mouth: Mucous membranes moist and pink in [...] without irritation or erythema. Psych: The patient said goodbye to this provider today. Mood seems stable. LABORATORY DATA: Obtained at [facility] on 08/01/2013 showed a sodium of 131. ASSESSMENT: 1. 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 He is here with his sister today. a. 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 Miguel Angel appears to be clinically euvolemic today. Continue on his current dose of DDAVP. Sodium dropped from 145 to 131 this month. We will repeat it today. I think this is likely just fluctuations in his hydration, etc. Continue on 60 ounces during the fall and winter with an increase to 70 ounces during the summer. Call with any questions or concerns. b. Secondary hypothyroidism. Appears clinically euthyroid. We will obtain a free T4 and free T3 today. Continue current dose of levothyroxine. c. Secondary [...] and behavioral issues. e. Growth hormone deficiency. Miguel Angel's sister, who is his guardian, has not been interested in pursuing adult growth hormone replacement, which I have agreed with in the past. PLAN: 1. Continue current dose of DDAVP. 2. Continue current dose of levothyroxine. We will check free T4 and a free T3 today to confirm dose remains appropriate 3. Continue current dose of hydrocortisone. 4. Stress dose when needed. 5. We will check sodium today, and intermittently if there are any behavioral changes or changes infree water intake. 6. We will see him back in 6 months. documented in this encounter Plan of Treatment Upcoming Encounters Date Type Department Care Team (Late st Contact Info) Description 09/09/2024 10:20 EST Office Visit [facility] Endocrinology - [place] [phone] Day Littlejohn MD PhD [address] [place] [address] documented as of this encounter Results * (ABNORMAL) ELECTROLYTES (08/04/2014 15:24 EST) Pathologist [facility] Sodium 125(L) 136 - 145 mEq/L 08/04/2014 20:16 [facility] Potassium 4.0 3.5 - 5.0 mEq/L 08/04/2014 20:16 [facility] Chloride 89(L) 96 - 110 mEq/L 08/04/2014 20:16 [facility] CO2 28 24 - 32 mEq/L 08/04/2014 20:16 [facility] Blood specimen (specimen) BLOOD SPECIMEN / Unknown 08/04/2014 15:24 EST 08/04/2014 19:15 EST Wilder Zaidi DO CHEMISTRY & BL OOD GAS ORDERABLES Performing Organization Address City/[facility]/ZIP Co de Phone Number [facility] [address] [place] [address] * T3 FREE (08/04/2014 15:24 EST) Pathologist [facility] T3, Free 2.5 2.3 - 4.2 pg/mL 08/04/2014 21:27 EST [facility] Blood specimen (specimen) BLOOD SPECIMEN / Unknown 08/04/2014 15:24 EST 08/04/2014 19:15 EST Wilder Zaidi DO CHEMISTRY & BL OOD GAS ORDERABLES [facility] [address] [place] [address] * T4 FREE (08/04/2014 15:24 EST) Free T4 1.4 0.8 - 1.8 ng/dl 08/04/2014 21:27 EST [facility] Blood specimen (specimen) BLOOD SPECIMEN / Unknown 08/04/2014 15:24 EST 08/04/2014 19:15 EST Wilder Zaidi DO CHEMISTRY & BL OOD GAS ORDERABLES [facility] [address] [place] [address] documented in this encounter Visit Diagnoses Diagnosis 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HCC-CMS)- Primary Panhypopituitarism 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HCC-CMS) Diabetes insipidus Gonadotropin deficiency (HCC-CMS) Other anterior pituitary disorders Secondary hypothyroidism Other specified acquired hypothyroidism documented in this encounter Historical Medications * This list may reflect changes made after this encounter. Medication Sig Dispensed Refills Start Date End Date testosterone (ANDROGEL) 1 % (50 mg/5 gram) gel packet Apply 5 g topically daily. HYDROCODONE/ACETAMINOPHE N (VICODIN ORAL) Take 5 mg by mouth. added in this encounter Care Teams Form Raiser Relationship Specialty Start Date End Date Yossi Torres MD [address] [place] [address] DR BUITRAGO [address] [place] [phone] PCP - General 04/17/11 03/14/16 documented as of this encounter
--- OUTSIDE RECORDS SUMMARY | 2024-03-05 15:45 | XMS_ITS | Encounter Summary ---
Author Organization [facility] Address [address] [place] [address] Care Team Providers Care Cut Out Operator Name Role Phone Yossi Torres MD Primary Care Provider [phone] Reason for Visit * Reason Onset Date Comments Results 09/18/2011 Encounter Details Date Type Department Care Team (Late st Contact Info) Description 09/18/2011 Telephone [facility] Endocrinology - [facility] [address] [place] [address] Wilder Zaidi DO 62 [facility] [address] [place] [address] Results Social History Tobacco Use [...] encounter Miscellaneous Notes * Telephone Encounter - Marta Rice RN - 09/18/2011 2659 EDT Phone call to Miguel Angel Burgos's home (left message for caregiver to call back) Phone call from Miguel Angel Gave her message below from Dr. Zaidi. Sodium level normal, no change in DDAVP dose or fluids needed. * Telephone Encounter - Wilder Zaidi DO - 09/18/2011 1151 EDT Please contact patient's caregivers. The patient is no-verbal. His sodium levels from 09/17/11 was normal at 140. No change in DDAVP dose or fluid intake needed. documented in this encounter Plan of Treatment Upcoming Encounters Date Type Department Care Team (Late st Contact Info) Description 09/09/2024 10:20 EST Office Visit [facility] Endocrinology - [address] [address] Day Littlejohn MD PhD 62 [facility] [address] [place] [address] documented as of this encounter Visit Diagnoses Not on filedocumented in this encounter Care Teams Cut Out Operator Relationship Specialty Start Date End Date Yossi Torres MD [address] [place] [address] [address] [place] [phone] PCP - General 04/17/11 03/14/16 documented as of this encounter
--- OUTSIDE RECORDS SUMMARY | 2024-03-05 15:45 | XMS_ITS | Encounter Summary ---
Author Organization [facility] Address [address] [place] [address] Care Team Providers Care Gericare Aide Name Role Phone Akil Serrano MD Primary Care Provider [phone] Reason for Visit * Reason Onset Date Comments Results 02/07/2011 Encounter Details Date Type Department Care Team (Late Contact Info) Description 02/07/2011 Telephone [facility] Endocrinology - [facility] [address] [place], [place] [phone] Wilder Zaidi DO [address] [facility] [address] [place] [address] Results Social History Tobacco Use [...] Telephone Encounter - Wilder Zaidi DO - 02/07/2011 1626 EDT 1. Sister called with recent sodium of 149. Instructed patient's sister to increase fluid intake to80 oz per day with recheck of sodium on FridayFebruary 11. documented in this encounter Plan of Treatment Upcoming Encounters Date Type Department Care Team (Late Contact Info) Description 09/09/2024 10:20 EST Office Visit [facility] Endocrinology - [facility] [address] [place], [place] [phone] aDy Littlejohn MD PhD [address] [facility] [address] [place] [address] documented as of this encounter Visit Diagnoses Not on filedocumented in this encounter Care Teams Gericare Aide Relationship Specialty Start Date End Date Akil Serrano MD [address] [facility] [place] [address] PCP - General 02/21/10 04/16/11 documented as of this encounter
--- OUTSIDE RECORDS SUMMARY | 2024-03-05 15:45 | XMS_ITS | Encounter Summary ---
Author Organization [facility] Address [address] [place] [address] Care Team Providers Care Stone And Plate Preparer Apprentice Name Role Phone Yossi Torres MD Primary Care Provider [phone] Reason for Visit * Reason Onset Date Comments Results 04/21/2012 Follow-up 04/21/2012 Encounter Details Date Type Department Care Team (Late st Contact Info) Description 04/21/2012 Telephone [facility] Endocrinology - [facility] [address] [place] [address] Wilder Zaidi, 62 [facility] [address] [place] [address] Results; Follow-up Social History Tobacco Use Types Packs/Day [...] encounter Miscellaneous Notes * Telephone Encounter - Kemi Kwon - 04/21/2012 1126 EDT Returning wing call * Telephone Encounter - Georgia Rice RN - 04/21/2012 1123 EDT Phone call to Bettina (Miguel Angel's sister) Left message for her to call back in regard to his blood work results. Phone call to Bettina (left message on her voice mail) Miguel Angel's sodium level is normal at 128. Continue current doses of medication. Any questions please call back. * Telephone Encounter - Wilder Zaidi DO - 04/21/2012 1109 EDT Please contact patient's caretakers and/or sister via phone. I have review laboratory results from [facility] dated 04/20/12. Advise that solidum level was normal at 128. Continue current doses. documented in this encounter Plan of Treatment Upcoming Encounters Date Type Department Care Team (Late st Contact Info) Description 09/09/2024 10:20 EST Office Visit [facility] Endocrinology - [address] [address] Day Littlejohn MD PhD [address] [facility] [address] [place] [phone] documented as of this encounter Visit Diagnoses Not on filedocumented in this encounter Care Teams Stone And Plate Preparer Apprentice Relationship Specialty Start Date End Date Yossi Torres MD [address] [place] [phone] PCP - General 04/17/11 03/14/16 documented as of this encounter
--- OUTSIDE RECORDS SUMMARY | 2024-03-05 15:45 | XMS_ITS | Encounter Summary ---
Author Organization [facility] Address [address] [place] [address] Care Team Providers Care Channel Cementer Insole Machine Name Role Phone Yossi Torres MD Primary Care Provider [phone] Reason for Visit * Reason Comments Other Encounter Details Date Type Department Care Team (Late st Contact Info) Description 06/28/2012 Refill [facility] Endocrinology - [facility] [address] [place] [address] Wilder Zaidi, 62 [facility] [address] [place] [address] Other Social History Tobacco Use [...] Dispensed Refills Start Date End Da te ANDROGEL 1 %(50 mg/5 gram) gel ONE PACKET ONCE DAILY TOPICALLY 30 Packet 5 06/28/2012 02/01/2013 documented in this encounter Miscellaneous Notes * Telephone Encounter - Karen Tellez - 07/09/2012 1443 EST Testosterone called in to [facility] in [place] documented in this encounter Plan of Treatment Upcoming Encounters Date Type Department Care Team (Late st Contact Info) Description 09/09/2024 10:20 EST Office Visit [facility] Endocrinology - [facility] [address] [place] [address] Day Littlejohn MD PhD 62 [facility] [address] [place] [address] documented as of this encounter Visit Diagnoses Not on filedocumented in this encounter Discontinued Medications Medication Sig Discontinue Reason Start Date End Da te ANDROGEL 1 %(50 mg/5 gram) gel APPLY 5GM (1 PACKET) ONCE DAILY TO SKIN Reorder 12/25/2011 06/28/2012 documented as of this encounter Care Teams Channel Cementer Insole Machine Relationship Specialty Start Date End Date Yossi Torres MD [address] [place] [address] [address] [place] [phone] PCP - General 04/17/11 03/14/16 documented as of this encounter
--- OUTSIDE RECORDS SUMMARY | 2024-03-05 15:45 | XMS_ITS | Encounter Summary ---
Author Organization [facility] Address [address] [place] [address] Care Team Providers Care Car Rental Agent Name Role Phone Yossi Torres MD Primary Care Provider [phone] Reason for Visit * Reason Onset Date Comments Medications Refill 06/18/2011 Encounter Details Date Type Department Care Team (Late st Contact Info) Description 06/18/2011 Refill [facility] Endocrinology [address] [address] Georgia Rice RN Medications Refill Social History Tobacco Use Types [...] Start Date End Da te testosterone (ANDROGEL) 1 %(50 mg/5 gram) gel Place 5 g onto the skin daily. 30 Packet 5 06/18/2011 12/25/2011 documented in this encounter Plan of Treatment Upcoming Encounters Date Type Department Care Team (Late st Contact Info) Description 09/09/2024 10:20 EST Office Visit [facility] Endocrinology [address] [address] Day Littlejohn MD PhD [address] [place] [address] [address] [place] [address] documented as of this encounter Visit Diagnoses Not on filedocumented in this encounter Discontinued Medications Medication Sig Discontinue Reason Start Date End Da te testosterone (ANDROGEL) 1 %(50 mg/5 gram) gel Place 5 g onto the skin daily. Reorder 07/27/2010 06/18/2011 documented as of this encounter Care Teams Car Rental Agent Relationship Specialty Start Date End Date Yossi Torres MD [address] [place] [address] [address] [place] [phone] PCP - General 04/17/11 03/14/16 documented as of this encounter
--- OUTSIDE RECORDS SUMMARY | 2024-03-05 15:45 | XMS_ITS | Encounter Summary ---
Author Organization [facility] Address [address] [place] [address] Care Team Providers Care Aluminum Shingle Roofer Name Role Phone Yossi Torres MD Primary Care Provider [phone] Encounter Details Date Type Department Care Team (Late st Contact Info) Description 02/01/2013 Orders Only [address] [address] Karen Tellez RN Social History Tobacco Use Types Packs/Day Years [...] Place 5 g onto the skin daily. Pt needs appt for further refills. 30 Packet 0 02/01/2013 02/03/2014 documented in this encounter Progress Notes * Georgia Rice, RN - 02/04/2013 1540 EDT Called Androgel into his pharmacy. He needs an appointment before further refills per Dr. Zaidi. documented in this encounter Plan of Treatment Upcoming Encounters Date Type Department Care Team (Late st Contact Info) Description 09/09/2024 10:20 EST Office [facility] [address] [place], [place] [phone] Day Littlejohn MD PhD 62 [facility] [address] [place] [address] documented as of this encounter Visit Diagnoses Not on filedocumented in this encounter Discontinued Medications Medication Sig Discontinue Reason Start Date End Da te ANDROGEL 1 %(50 mg/5 gram) gel ONE PACKET ONCE DAILY TOPICALLY Reorder 06/28/2012 02/01/2013 documented as of this encounter Care Teams Aluminum Shingle Roofer Relationship Specialty Start Date End Date Yossi Torres MD [address] [place] [address] [phone] PCP - General 04/17/11 03/14/16 documented as of this encounter
--- OUTSIDE RECORDS SUMMARY | 2024-03-05 15:45 | XMS_ITS | Encounter Summary ---
Author Organization [facility] Address [address] [place] [address] Care Team Providers Care Casting Wheel Operator Name Role Phone Akil Serrano MD Primary Care Provider [phone] Reason for Visit * Reason Onset Date Comments Results 11/30/2010 his sodium was 1 40 (down from 151 the week before) from 100 oz water for several dys (4 days?) I am having them go back to 60 oz today and recheck Friday Encounter Details Date Type Department Care Team (Late st Contact Info) Description 11/30/2010 Telephone [facility] Endocrinology - [address] [address] Ramon Lucero MD [facility] [address] [place] [address] Results (his sodium was 140 (down from 151 the week before) from 100 oz water for several dys (4 days?) I am having them go back to 60 oz today and recheck Friday) Social History Tobacco Use Types Packs/Day Years [...] * Telephone Encounter - Ramon Lucero - 11/30/2010 8957 EDT Sodium came down to 140 on 100 oz of water daily. I spoke with his sister Bettina and told her to godown to 80 oz on , 11/29. Then today, 11/30 I got nervous and asked the personal care assistant to go downto 60 oz again and recheck Friday. She understands. He's behaving normally and stools are more formed (had some loose stools). documented in this encounter Plan of Treatment Upcoming Encounters Date Type Department Care Team (Late st Contact Info) Description 09/09/2024 10:20 EST Office Visit [facility] Endocrinology - [address] [address] Day Littlejohn MD PhD [address] [place] [address] [address] [place] [address] documented as of this encounter Visit Diagnoses Not on filedocumented in this encounter Care Teams Casting Wheel Operator Relationship Specialty Start Date End Date Akil Serrano MD [address] [place], [place] [address] PCP - General 02/21/10 04/16/11 documented as of this encounter
--- OUTSIDE RECORDS SUMMARY | 2024-03-05 15:45 | XMS_ITS | Encounter Summary ---
Author Organization [facility] Address [address] [place] [address] Care Team Providers Care Electronic Publications Specialist Name Role Phone Yossi Torres MD Primary Care Provider [phone] Reason for Visit * Reason Comments Hypothyroidism Pituitary Abnormality Encounter Details Date Type Department Care Team (Latest Contact Info) Description 02/01/2014 10:40 EDT Office Visit [facility] Endocr[facility]ology - [facility] [address] [place], [place] [id number] Wilder Zaidi, [address] [facility] [address] [place] [address] Central hypothyroidism (Primary Dx) Social History Tobacco Use Types [...] Sign Reading Time Taken Comments Blood Pressure 132/94 02/01/2014 0959 EDT Pulse 84 02/01/2014 0959 EDT Temperature - - Respiratory Rate - - Oxygen Saturation - - Inhaled Oxygen Concentration - - Weight 81.6 kg (180 lb) 02/01/2014 0959 EDT Height 170.2 cm (5' 7.01) 02/01/2014 0959 EDT Body Mass Index 28.19 02/01/2014 0959 EDT documented in this encounter Discharge Diagnoses Diagnosis 244.9 HYPOTHYROIDISM NOS[ICD-9-CM] documented in this encounter Patient Instructions * Patient Instructions* Wilder Zaidi DO - 02/01/2014 10:[address] Zaidi will inform you of your lab results by phone or mail within 2 weeks. If you do not receive your test results after two weeks please contact the office. 2. Call with questions, concerns or change in symptoms. 3. Follow-up 6 months documented in this encounter Ordered Prescriptions Prescription Sig Dispensed Refills Start Date End Da te testosterone (ANDROGEL) 20.25 mg/1.25 gram (1.62 %) transdermal gel pump Apply 1 pump actuation topically daily. 75 g 3 02/03/2014 08/29/2014 documented in this encounter Progress Notes * Georgia Rice RN - 02/03/2014 1515 EDT Phoned in script for Androgel. * Wilder Zaidi DO - 02/03/2014 1014 EDT SUBJECTIVE: Mr Miguel Angel Burgos is a 23-year-old male who returns to the endocrine clinic today for 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 Miguel Angel was accompanied by his caretakers today. He seems to be doing quite well. With regards to his secondary adrenal insufficiency, he takes hydrocortisone 20 mg in the morning, 10 mg in the afternoon and 10 mg in the evening. His weight has remained stable. Appetite is reported to be stable, according to his caretakers. There have been no complaints of nausea or emesis that they have witnessed. They have not had to stress dose but are able to articulate how and when to do so. With regards to his secondary hypogonadism, currently on AndroGel 1% 5 grams, which will be discontinued. I will need to switch him over to the 1.62% AndroGel. We will try him at 1 pump daily. He has had low-normal levels of testosterone in the past, but any attempt to increase his AndroGel has caused significant agitation, irritation, so we are maintaining him on a low-dose of testosterone. There are no problems with skin irritation at his application site. No significant change in urinary pattern. He does go through some nights without urinating. He does not ask for additional fluids. He has increased his fluids to 70 ounces over the summer. His most recent sodium was drawn on 01/21/2014 was normal at 141. No significant changes in his bowels. He does not appear to have any temperature intolerance, although difficult to tell as the patient really is unable to answer those type of questions. He is currently on levothyroxine daily. They g cliff it to him first thing in the morning on an empty stomach. With regards to his diabetes insipidus, he is taking half of 0.1, so a 0.05 mg 3 times a day, once in the morning, one at noon and one inthe evening time. He does not appear to have any significant breakthrough polyuria during the day. No changes in mood. Energy level appears to be stable, according to his caretakers. PAST MEDICAL HISTORY: Reviewed as documented in electronic medical record. MEDICATIONS: Reviewed as documented in electronic medical record. ALLERGIES: Reviewed as documented in electronic medical record. OBJECTIVE: Blood pressure is 132/94, pulse is 84, weight is 180 pounds. This is down 6 pounds from when I saw him back in July. His BMI is 28. In general, patient is a 23-year-old male in no acutedistress. HEENT: Eyes: There does not appear to be any lid lag or periorbital edema noted, [...] irritation or erythema. Psych: The patient said awesome a few times to this provider and was able to shakehis head yes or no. Mood has been stable, according to the bilingual manager. LABORATORY DATA: Obtained on at [facility] on 01/21/2014 showed a sodium normal at 141. ASSESSMENT: 1. 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 a. 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 Miguel Angel appears to be clinically euvolemic today. Continue on his DDAVP dosing at 0.05 mg 3 times a day as discussed above. Sodium appears stable. Continue on the 70 ounces during the summer months, reduce down to 60 ounces in the fall/winter. Call with any questions or concerns. We will recheck his sodium in particular when there is a change in his free water intake this fall. b. Secondary hypothyroidism. Appears clinically euthyroid. We will obtain a free T4 today. Continuecurrent dose. c. Secondary adrenal insufficiency. The patient continues to be on a relatively high-dose of hydrocortisone. At least 40 mg a day. His weight has actually gone down since July, appears to have good energy levels. No nausea, vomiting. Caretakers were able to articulate when they would need to stress dose his oral steroids. They also have injectable steroids at home if unable to tolerate his oral medications d. Secondary hypogonadism. We will switch to AndroGel 1.62%, low dose. Any attempt to increase above the low dose resulted in increased agitation. e. Growth hormone deficiency. Miguel Angel's sister, who is now his guardian, has not been interested in pursuing adult growth hormone replacement, which I agree with. PLAN: 1. Continue current dose of DDAVP 2. Continue dose of levothyroxine. We will check free T4 to confirm the dose is appropriate. 3. Continue dose of hydrocortisone. 4. Stress dose hydrocortisone as needed. 5. Continue to check sodium intermittently with behavioral changes or change in free water intake. 6. I will see him back in 6 months. documented in this encounter Plan of Treatment Upcoming Encounters Date Type Department Care Team (Late st Contact Info) Description 09/09/2024 10:20 EST Office Visit [facility] - [facility] [address] [place] [address] Day Littlejohn MD PhD [address] [facility] [address] [place] [address] documented as of this encounter Results * T4 FREE (02/01/2014 10:50 EDT) Free T4 1.4 0.8 - 1.8 ng/dl [facility] Blood specimen (specimen) 02/01/2014 10:50 EDT 02/01/2014 15:54 EDT Wilder Zaidi DO CHEMISTRY & BL OOD GAS ORDERABLES [facility] [address] [place] [address] documented in this encounter Visit Diagnoses Diagnosis Central hypothyroidism- Primary Unspecified hypothyroidism documented in this encounter Discontinued Medications Medication Sig Discontinue Reason Start Date End Da te testosterone (ANDROGEL) 1 %(50 mg/5 gram) gel Place 5 g onto the skin daily. Pt needs appt for further refills. 02/01/2013 02/03/2014 documented as of this encounter Care Teams Electronic Publications Specialist Relationship Specialty Start Date End Date Yossi Torres MD [address] [place] [address] [address] [place] [id number] PCP - General 04/17/11 03/14/16 documented as of this encounter
--- OUTSIDE RECORDS SUMMARY | 2024-03-05 15:45 | XMS_ITS | Encounter Summary ---
Author Organization [facility] Address [address] [place] [address] Care Team Providers Care Gas Plumber Name Role Phone Yossi Torres MD Primary Care Provider [phone] Reason for Visit * Reason Comments Other Encounter Details Date Type Department Care Team (Late st Contact Info) Description 12/25/2011 Refill [facility] Endocrinology - [facility] [address] [place] [address] Wilder Zaidi, [address] [facility] [address] [place] [address] Other Social History Tobacco Use [...] 5GM (1 PACKET) ONCE DAILY TO SKIN 30 Packet 5 12/25/2011 06/28/2012 documented in this encounter Miscellaneous Notes * Telephone Encounter - Karen Tellez - 12/25/2011 1245 EDT Testosterone called in to [facility] documented in this encounter Plan of Treatment Upcoming Encounters Date Type Department Care Team (Late st Contact Info) Description 09/09/2024 10:20 EST Office Visit [facility] Endocrinology - [facility] [address] [place] [address] Day Littlejohn MD PhD [address] [facility] [address] [place] [address] documented as of this encounter Visit Diagnoses Not on filedocumented in this encounter Discontinued Medications Medication Sig Discontinue Reason Start Date End Da te testosterone (ANDROGEL) 1 %(50 mg/5 gram) gel Place 5 g onto the skin daily. Reorder 06/18/2011 12/25/2011 documented as of this encounter Care Teams Gas Plumber Relationship Specialty Start Date End Date Yossi Torres MD [address] [place] [address] DR [address] [place] [phone] PCP - General 04/17/11 03/14/16 documented as of this encounter
--- OUTSIDE RECORDS SUMMARY | 2024-03-05 15:45 | XMS_ITS | Encounter Summary ---
Author Organization [facility] Address [address] [place] [address] Care Team Providers Care Rental Car Ferry Driver Name Role Phone Yossi Torres MD Primary Care Provider [phone] Reason for Visit * Reason Comments Pituitary Abnormality Encounter Details Date Type Department Care Team (Latest Contact Info) Description 07/26/2013 11:00 EST Office Visit [facility] Endocrinology - [facility] [address] [place], [place] [id number] Wilder Zaidi, [address] [facility] [address] [place] [address] Gonadotropin deficiency (CMS-HCC) (HCC-CMS) (Primary Dx); 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CMS-HCC) (HCC-CMS); 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HCC-CMS); 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CMS-HCC) (HCC-CMS); Secondary [...] Sign Reading Time Taken Comments Blood Pressure 122/68 07/26/2013 1125 EST Pulse 62 07/26/2013 1125 EST Temperature - - Respiratory Rate - - Oxygen Saturation - - Inhaled Oxygen Concentration - - Weight 84.4 kg (186 lb) 07/26/2013 1125 EST Height 170.2 cm (5' 7) 07/26/2013 1125 EST Body Mass Index 29.13 07/26/2013 1125 EST documented in this encounter Discharge Diagnoses Diagnosis 253.4 ANTER PITUITARY DIS NEC[ICD-9-CM] 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 90 Tab 3 07/26/2013 07/29/2013 documented in this encounter Progress Notes * Wilder Zaidi, DO - 07/26/2013 1203 EST SUBJECTIVE: Mr Miguel Angel Burgos is a 23-year-old male who returns to the endocrine clinic today for further evaluation and management of his panhypopituitarism central diabetes insipidus, status post resection of craniopharyngioma and subsequent complications in 2004. Miguel Angel is accompanied by his sister, Bettina, and his caretakers. Miguel Angel is doing quite well. He is due for lab work today. With regards to his secondary adrenal insufficiency, he takes hydrocortisone 20 mg in the morning, 10 mg in the afternoon and 10 mg in the evening. His weight has remained stable. Appetite also reports stable by his caretakers. There have been no complaints of nausea or emesis. They have not had to stress dose but are able to articulate how and when to do that. The also have injectable hydrocortisone at home if he would be unable to keep down his oral medications. With regards to his secondary hypogonadism, he is currently on AndroGel 5 g daily. Recheck of his testosterone had shown levels below the low-normal, but an attempt to increase his AndroGel caused significant agitation, irritation, so we are maintaining him on the 5 g. Reports no skin irritation at the site of application. No significant change in his urinary patterns. With regards to his secondary hypothyroidism, does not seem to be havingany problems with temperature intolerance. Notes significant changes in his bowels. He is currentlyon levothyroxine 200 mcg daily. They give this to first thing in the morning on an empty stomach. With regards to his diabetes insipidus, he is taking half of a 0.1 mg tablet in the morning, half at noon and half in the evening time. He continues to have some polyuria between 5 and 7 p.m., which has improved with addition of the noontime dose. No significant polyuria overnight. He is fluid restricted to 60 ounces during the wintertime, this increase to 80, sometimes 90 ounces in the summertime to keep his sodium stable. No changes in his mood, energy level is stable as well. PAST MEDICAL HISTORY: Reviewed as documented in electronic medical record. MEDICATIONS: Reviewed as documented in electronic medical record. ALLERGIES: Reviewed as documented in electronic medical record. OBJECTIVE: Blood pressure is 122/68, pulse is 62. Weight is 186 pounds, BMI is 29. In general, patient is a pleasant 23-year-old male in no acute distress. HEENT: Eyes: There is no lid lag or periorbital edema noted. Mouth: Mucous membranes moist and pink in color. No oral lesions seen. Dentition is in good repair. No oral thrush. Neck is supple without adenopathy. No JVD or carotid bruits appreciated. Respiratory: Lungs clear to auscultation bilaterally. Cardiovascular: Heart is regular without murmurs, rubs, or gallops. GI: Abdomen is soft with good bowel sounds in all 4 quadrants. Extremities: No clubbing, cyanosis or edema. Strength is 5/5 and equal bilaterally without proximal muscle weakness. Integument: AndroGel application site is without irritation or erythema. Psych: Patient actually answered yes when asked when he was happy and answered no when he said he was sad by his circulation man today. Mood has been stable according to his circulation man and sister. 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 Currently lives with his caretakers accompanied today by his circulation man and his sister, Bettina. 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 Miguel Angel appears to be clinically uvolemic today, DTPA dosing is 0.05 mg 3 times a day. We will recheck his sodium today. Continue with the 60 ounce of fluid restriction in the wintertime and increase it as we have done in the past over the summertime. Call with any questions or concerns. We will recheck sodium in particular when there is change in his free water intake. b. Secondary hypothyroidism. Appears clinically euthyroid. We will obtain a free T4 today. Continuecurrent dose c. Secondary adrenal insufficiency. The patient continues to me on a relatively high-dose of hydrocortisone, at least 40 mg a day. His weight has been stable. He appears to have good energy levels. No nausea or vomiting. His caretakers were able to articulate when the need to stress dose. They alsohave injectable medications at home if he were to be unable to tolerate his oral medications d. Secondary hypogonadism. Switched to AndroGel seems to be doing okay. Attempts to increase dose have resulted in increased agitation. Continue his current dose. Will check hematocrit. e. Growth hormone deficiency. Miguel Angel's sister has not been interested in pursuing adult growth hormone replacement. PLAN: 1. Continue current dose of DTPA. 2. Continue current dose of levothyroxine. We will check free T4 to confirm the dose is appropriate. 3. Continue current dose of hydrocortisone. 4. Stress dose as needed. 5. Continue to check sodium intermittently. 6. Will obtain a sodium today. 7. Will call with the laboratory results. 8. I will see him back in 6 months. documented in this encounter Plan of Treatment Upcoming Encounters Date Type Department Care Team (Late st Contact Info) Description 09/09/2024 10:20 EST Office Visit [facility]ology - [facility] [address] [place] [address] Day Littlejohn MD PhD [address] [place] [address] [address] [place] [address] documented as of this encounter Results * (ABNORMAL) HEMAGRAM (07/26/2013 12:17 EST) WBC 4.58 4.0 - 10.4 K/cmm [facility] RBC 5.66 4.36 - 5.78 M/cmm [facility] Hemoglobin 15.4 13.8 - 17.3 gm/dl [facility] HCT 45.4 39.5 - 50.2 % [facility] MCV 80(L) 81 - 95 fl [facility] MCH 27.2(L) 27.6 - 33.0 pg [facility] MCHC 33.9 32.8 - 36.4 gm/dl [facility] PLT 148 141 - 320 K/cmm [facility] RDW-CV 14.5(H) 11.8 - 14.1 % [facility] Blood specimen (specimen) 07/26/2013 12:17 EST 07/26/2013 15:09 EST Wilder Zaidi DO HEMATOLOGY & P F4 ORDERABLES Performing Organization Address [facility] Co de Phone Number [facility] [address] [place] [address] * (ABNORMAL) T4 FREE (07/26/2013 12:17 EST) Free T4 2.3(H) 0.8 - 1.8 ng/dL [facility] Blood specimen (specimen) 07/26/2013 12:17 EST 07/26/2013 15:09 EST Wilder Zaidi DO CHEMISTRY & BL OOD GAS ORDERABLES Performing Organization Address [facility] Co de Phone Number [facility] [address] [place] [address] * (ABNORMAL) ELECTROLYTES (07/26/2013 12:17 EST) Sodium 137 136 - 145 mEq/L [facility] Potassium 4.3 3.5 - 5.0 mEq/L [facility] Chloride 94(L) 96 - 110 mEq/L [facility] CO2 32 24 - 32 mEq/L [facility] Blood specimen (specimen) 07/26/2013 12:17 EST 07/26/2013 15:09 EST Wilder Zaidi DO CHEMISTRY & BL OOD GAS ORDERABLES [facility] [address] [place] [address] documented in this encounter Visit Diagnoses Diagnosis Gonadotropin deficiency (HCC-CMS)- Primary Other anterior pituitary disorders 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HCC-CMS) Pituitary dwarfism 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HCC-CMS) Panhypopituitarism 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HCC-CMS) Diabetes insipidus Secondary hypothyroidism Other specified acquired hypothyroidism documented in this encounter Discontinued Medications Medication Sig Discontinue Reason Start Date End Da te levothyroxine (SYNTHROID) 200 mcg tablet Take 200 mcg by mouth daily. 07/26/2013 documented as of this encounter Historical Medications * This list may reflect changes made after this encounter. Medication Sig Dispensed Refills Start Date End Date traZODone (DESYREL) 50 mg tabletIndications:Gonadotrop in deficiency (HCC-CMS),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HCC-CMS),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HCC-CMS),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HCC-CMS),Secondary hypothyroidism Take 100 mg by mouth daily. QUEtiapine (SEROQUEL) 50 mg tabletIndications:Gonadotrop in deficiency (HCC-CMS),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HCC-CMS),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HCC-CMS),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HCC-CMS),Secondary hypothyroidism Take 25 mg by mouth daily. Takes at 25 mg at noon added in this encounter Care Teams Rental Car Ferry Driver Relationship Specialty Start Date End Date Yossi Torres MD [address] [place] [address] [address] [place] [phone] PCP - General 04/17/11 03/14/16 documented as of this encounter
--- OUTSIDE RECORDS SUMMARY | 2024-03-05 15:45 | XMS_ITS | Encounter Summary ---
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) (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 Zaidi ???I was supervised by Dr. Zaidi who was in the suite and readily available.?? documented in this encounter Plan of Treatment Upcoming Encounters Date Type Department Care Team (Late st Contact Info) Description 09/09/2024 10:20 EST Office Visit [facility] Endocrinology - [address] [address] Day Littlejohn MD PhD [address] [place] [address] documented as of this encounter Procedures Procedure Name Priority Date/Time Associated Diagnosis Comments COMPLETE BLOOD COUNT Routine 07/26/2013 12:17 EST 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HCC-CMS) Gonadotropin deficiency (CMS-HCC) (HCC-CMS) 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CMS-HCC) (HCC-CMS) 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CMS-HCC) (HCC-CMS) Secondary hypothyroidism T4 FREE Routine 07/26/2013 12:17 EST Gonadotropin deficiency (CMS-HCC) (HCC-CMS) 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CMS-HCC) (HCC-CMS) 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HCC-CMS) 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CMS-HCC) (HCC-CMS) Secondary hypothyroidism ELECTROLYTES Routine 07/26/2013 12:17 EST Gonadotropin deficiency (CMS-HCC) (HCC-CMS) 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CMS-HCC) (HCC-CMS) 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HCC-CMS) 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CMS-HCC) (HCC-CMS) Secondary hypothyroidism documented in this encounter Results * (ABNORMAL) HEMAGRAM (07/26/2013 12:17 EST) WBC 4.58 4.0 - 10.4 K/cmm [facility] RBC 5.66 4.36 - 5.78 M/cmm [facility] Hemoglobin 15.4 13.8 - 17.3 gm/dl [facility] HCT 45.4 39.5 - 50.2 % [facility] MCV 80(L) 81 - 95 fl [facility] MCH 27.2(L) 27.6 - 33.0 pg [facility] MCHC 33.9 32.8 - 36.4 gm/dl [facility] PLT 148 141 - 320 K/cmm [facility] RDW-CV 14.5(H) 11.8 - 14.1 % [facility] Blood specimen (specimen) 07/26/2013 12:17 EST 07/26/2013 15:09 EST Wilder Zaidi DO HEMATOLOGY & P F4 ORDERABLES Performing Organization Address [facility] Co de Phone Number [facility] [address] [place] [address] * (ABNORMAL) T4 FREE (07/26/2013 12:17 EST) Pathologist [facility] Free T4 2.3(H) 0.8 - 1.8 ng/dL [facility] Blood specimen (specimen) 07/26/2013 12:17 EST 07/26/2013 15:09 EST Wilder Zaidi DO CHEMISTRY & BL OOD GAS ORDERABLES Performing Organization Address [facility] de Phone Number [facility] [address] [place] [address] * (ABNORMAL) ELECTROLYTES (07/26/2013 12:17 EST) Pathologist [facility] Sodium 137 136 - 145 mEq/L [facility] Potassium 4.3 3.5 - 5.0 mEq/L [facility] Chloride 94(L) 96 - 110 mEq/L [facility] CO2 32 24 - 32 mEq/L [facility] Blood specimen (specimen) 07/26/2013 12:17 EST 07/26/2013 15:09 EST Wilder Zaidi DO CHEMISTRY & BL OOD GAS ORDERABLES [facility] [address] [place] [address] documented in this encounter Visit Diagnoses Diagnosis Gonadotropin deficiency (HCC-CMS) Other anterior pituitary disorders 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HCC-CMS) Pituitary dwarfism 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HCC-CMS) Panhypopituitarism 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HCC-CMS) Diabetes insipidus Secondary hypothyroidism Other specified acquired hypothyroidism documented in this encounter Care Teams Signal Intelligence/Electronic Warfare Relationship Specialty Start Date End Date Yossi Torres MD [address] [place] [address] DR BU[address]RAGO [address] [place] [phone] PCP - General 04/17/11 03/14/16 documented as of this encounter
--- OUTSIDE RECORDS SUMMARY | 2024-03-05 15:45 | XMS_ITS | Encounter Summary ---
Author Organization [facility] Address [address] [place] [address] Care Team Providers Care Human Factors Advisor Lead Name Role Phone Yossi Torres MD Primary Care Provider [phone] Reason for Visit * Reason Onset Date Comments Medication Questions 05/15/2012 Encounter Details Date Type Department Care Team (Late st Contact Info) Description 05/15/2012 Telephone [facility] Endocrinology - [facility] [address] [place] [address] Wilder Zaidi DO [address] [facility] [address] [place] [address] Medication Questions Social History Tobacco [...] Telephone Encounter - Wilder Zaidi DO - 05/15/2012 1006 EST Spoke with Bettina valverde's sister via phone. He was given an extra dose of hydrocortisone at lunch yesterday. I advised Bettina that there is no real clinical problem with one extra dose. Asked her to call with further questions or concerns. documented in this encounter Plan of Treatment Upcoming Encounters Date Type Department Care Team (Late st Contact Info) Description 09/09/2024 10:20 EST Office Visit [facility] Endocrinology - [facility] [address] [place] [address] Day Littlejohn MD PhD [address] [facility] [address] [place] [address] documented as of this encounter Visit Diagnoses Not on filedocumented in this encounter Care Teams Human Factors Advisor Lead Relationship Specialty Start Date End Date Yossi Torres MD [address] [place] [address] [address] [place] [phone] PCP - General 04/17/11 03/14/16 documented as of this encounter
--- OUTSIDE RECORDS SUMMARY | 2024-03-05 15:45 | XMS_ITS | Encounter Summary ---
Author Organization [facility] Address [address] [place] [address] Care Team Providers Care Obstetrics And Gynecology Professor Name Role Phone Yossi Torres MD Primary Care Provider [phone] Reason for Visit * Reason Onset Date Comments Abnormal Lab 09/12/2013 Encounter Details Date Type Department Care Team (Late st Contact Info) Description 09/12/2013 Telephone [facility] Endocrinology - [facility] [address] [place] [address] Day Littlejohn MD PhD [address] [facility] [address] [place] [address] Abnormal Lab Social History Tobacco Use Types Packs/Day Years [...] encounter Miscellaneous Notes * Telephone Encounter - Day Littlejohn MD - 09/12/2013 0858 EDT Called from [facility] that Miguel Angel is in ER. Sister believes he may have a GI bug as was not eating well. Na 120, BP 80 systolic. No change in usual status (has altered MS for many yrs). Being admitted. Told to hold the DDAVP until Na 128, then restart-should check every 4 hrs. Asked them to give him 100 mg hydrocortisone and then 50 Q 8 hrs. [facility] documented in this encounter Plan of Treatment Upcoming Encounters Date Type Department Care Team (Late st Contact Info) Description 09/09/2024 10:20 EST Office Visit [facility] Endocrinology - [facility] [address] [place] [address] Day Littlejohn MD PhD [address] [facility] [address] [place] [address] documented as of this encounter Visit Diagnoses Not on filedocumented in this encounter Care Teams Obstetrics And Gynecology Professor Relationship Specialty Start Date End Date Yossi Torres MD [address] [place] [address] 2 [place] [phone] PCP - General 04/17/11 03/14/16 documented as of this encounter
--- OUTSIDE RECORDS SUMMARY | 2024-03-05 15:45 | XMS_ITS | Encounter Summary ---
Author Organization [facility] Address [address] [place] [address] Care Team Providers Care Sewer Line Photo Inspector Name Role Phone Yossi Torres MD Primary Care Provider [phone] Reason for Visit * Reason Comments Other Encounter Details Date Type Department Care Team (Late st Contact Info) Description 04/19/2013 Refill [facility] Endocrinology - [facility] [address] [place] [address] Wilder Zaidi, DO [address] [facility] [address] [place] [address] Other Social History Tobacco Use [...] DAY AND TAKE 1/2 TABLET EVERY EVENING 150 Tab 0 04/19/2013 07/29/2013 documented in this encounter Miscellaneous Notes * Telephone Encounter - Karen Tellez L - 04/19/2013 1143 EDT Miguel Angel has not been seen in over 1 year (). I called and spoke with his caregiver Bettina and she made him a follow up visit for July. I reminded her we will refill meds until that visit and he needs to be seen at least yearly. documented in this encounter Plan of Treatment Upcoming Encounters Date Type Department Care Team (Late st Contact Info) Description 09/09/2024 10:20 EST Office Visit [facility] Endocrinology - [address] [address] Day Littlejohn MD PhD [address] [facility] [address] [place] [phone] documented as of this encounter Visit Diagnoses Not on filedocumented in this encounter Discontinued Medications Medication Sig Discontinue Reason Start Date End Da te desmopressin (DDAVP) 0.1 mg tablet TAKE ONE TABLET BY MOUTH EVERY MORNING AND 1/2 TABLET EVERY EVENING Reorder 03/03/2013 04/19/2013 documented as of this encounter Care Teams Sewer Line Photo Inspector Relationship Specialty Start Date End Date Yossi Torres MD [address] [place] [address] DR BUITRAGO [address] [place] [phone] PCP - General 04/17/11 03/14/16 documented as of this encounter
--- OUTSIDE RECORDS SUMMARY | 2024-03-05 15:45 | XMS_ITS | Encounter Summary ---
Author Organization [facility] Address [address] [place] [address] Care Team Providers Care Supervising Deputy Name Role Phone Yossi Torres MD Primary Care Provider Emilee Cody MD Primary Care Provider + Ren Vaz MD Primary Care Provider [phone] Reason for Visit * Reason Onset Date Comments Follow-up 09/07/2013 Update 09/07/2013 Encounter Details Date Type Department Care Team (Late st Contact Info) Description 09/07/2013 Telephone [facility] Endocrinology - [facility] [address] [place] [address] Wilder Zaidi, [address] [facility] [address] [place] [address] Follow-up; Update Social History Tobacco Use Types Packs/Day [...] encounter Miscellaneous Notes * Telephone Encounter - Shasta Rebolledo - 09/07/2013 1641 EST Bettina states she received 's message and will follow thru with instructions. Thanks * Telephone Encounter - Tejal Carreno RN - 09/07/2013 1516 EST Left a second voice message to advise to maintain current fluid restriction of 80 oz. * Telephone Encounter - Tejal Carreno RN - 09/07/2013 1512 EST Left detailed vm on bettina's phone with the following instructions per dr lucero: Increase DDAVP 1/2 tab tid instead of bid and get new sodium drawn on so that physician can review by weekend. i asked bettina to call back to confirm receipt of message and to let us know if a new lab req is required. * Telephone Encounter - Ramon Lucero - 09/07/2013 1505 EST Yes. Exactly. She should have him go to 1/2 tab ddAVP tid instead of bid, stay at 80 oz fluid, and recheck sodium (morning or afternoon - either is ok as long as we have labs by the weekend). Thanks * Telephone Encounter - Tejal Carreno RN - 09/07/2013 1455 EST i called Bettina. She reports that she got a verbal result from lab at [facility] of 152. She is wondering if pt should be taking ddavp 1/2 tab tid instead of bid. Reports current fluid restriction is 80 oz. * Telephone Encounter - Bettina Fischer - 09/07/2013 1342 EST Pt sister requesting call back in regards to encounter from yesterday, pts high sodium levels documented in this encounter Plan of Treatment Upcoming Encounters Date Type Department Care Team (Late st Contact Info) Description 09/09/2024 10:20 EST Office Visit [facility] Endocrinology - [facility] [address] [place], [place] [phone] Day Littlejohn MD PhD [address] [facility] [address] [place] [address] documented as of this encounter Visit Diagnoses Not on filedocumented in this encounter Care Teams Supervising Deputy Relationship Specialty Start Date End Date Yossi Torres MD [address] [place] [address] [address] [place] [phone] PCP - General 04/17/11 03/14/16 Emilee Cody MD [address] [place] [address] [address] [place] [phone] PCP - General 03/15/16 09/29/18 Ren Vaz MD [address] [place] [address] [place] [address] PCP - General 09/30/18 documented as of this encounter
--- OUTSIDE RECORDS SUMMARY | 2024-03-05 15:45 | XMS_ITS | Encounter Summary ---
Author Organization [facility] Address [address] [place] [address] Care Team Providers Care Television Program Director Name Role Phone Yossi Torres MD Primary Care Provider [phone] Emilee Cody MD Primary Care Provider + Ren Vaz MD Primary Care Provider [phone] Reason for Visit * Reason Comments Other Encounter Details Date Type Department Care Team (Late st Contact Info) Description 03/03/2013 Refill [facility] Endocrinology - [facility] [address] [place] [address] Wilder Zaidi, [address] [facility] [address] [place] [address] Other Social History Tobacco Use [...] EVERY MORNING AND 1/2 TABLET EVERY EVENING 45 Tab 0 03/03/2013 04/19/2013 documented in this encounter Miscellaneous Notes * Telephone Encounter - Georgia Rice RN - 03/03/2013 7982 EDT Patient last visit 11/04/11. Dr. Zaidi wanted to see him back in 6 months. documented in this encounter Plan of Treatment Upcoming Encounters Date Type Department Care Team (Late st Contact Info) Description 09/09/2024 10:20 EST Office Visit [facility] Endocrinology - [address] [address] Day Littlejohn MD PhD [address] [facility] [address] [place] [phone] documented as of this encounter Visit Diagnoses Not on filedocumented in this encounter Discontinued Medications Medication Sig Discontinue Reason Start Date End Da te desmopressin (DDAVP) 0.1 mg tablet Take 1 tab PO q AM, 1/2 tab q PM - pt needs appt for further refills. Reorder 02/03/2013 03/03/2013 documented as of this encounter Care Teams Television Program Director Relationship Specialty Start Date End Date Yossi Torres MD [address] [place] [address] [address] [place] [phone] PCP - General 04/17/11 03/14/16 Emilee Cody MD [address] [place] [address] [address] [place] [phone] PCP - General 03/15/16 09/29/18 Ren Vaz MD [address] [place] [address] [place] [address] PCP - General 09/30/18 documented as of this encounter
--- OUTSIDE RECORDS SUMMARY | 2024-03-05 15:45 | XMS_ITS | Encounter Summary ---
Author Organization [facility] Address [address] [place] [address] Care Team Providers Care Apartment Maintenance Name Role Phone Yossi Torres MD Primary Care Provider [phone] Reason for Visit * Reason Onset Date Comments Abnormal Lab 01/22/2012 Encounter Details Date Type Department Care Team (Late st Contact Info) Description 01/22/2012 Telephone [facility] Endocrinology - [facility] [address] [place] [address] Wilder Zaidi DO [address] [facility] [address] [place] [address] Abnormal Lab Social History Tobacco [...] Telephone Encounter - Wilder Zaidi DO - 01/22/2012 1004 EDT Spoke with Miguel Angel's sister this am regarding lab test from yesterday that showed a sodium of 154. Wehad increase fluid amount by 10 oz over the summer, but weather has been hot lately. Advised them to increase fluid to 100-110 oz daily and recheck sodium on Friday. documented in this encounter Plan of Treatment Upcoming Encounters Date Type Department Care Team (Late st Contact Info) Description 09/09/2024 10:20 EST Office Visit [facility] Endocrinology - [address] [address] Day Littlejohn MD PhD [address] [facility] [address] [place] [address] documented as of this encounter Visit Diagnoses Not on filedocumented in this encounter Care Teams Apartment Maintenance Relationship Specialty Start Date End Date Yossi Torres MD [address] [place] [address] [address] [place] [phone] PCP - General 04/17/11 03/14/16 documented as of this encounter
--- OUTSIDE RECORDS SUMMARY | 2024-03-05 15:45 | XMS_ITS | Encounter Summary ---
Author Organization [facility] Address [address] [place] [address] Care Team Providers Care Instructional Design Specialist Name Role Phone Yossi Torres MD Primary Care Provider [phone] Reason for Visit * Reason Onset Date Comments Results 05/09/2011 Encounter Details Date Type Department Care Team (Late st Contact Info) Description 05/09/2011 Telephone [facility] - [facility] [address] [place] [address] Wilder Zaidi DO [address] [facility] [address] [place] [address] Results Social History Tobacco [...] Telephone Encounter - Wilder Zaidi DO - 05/09/2011 0913 EDT Spoke with Miguel Angel Dunbar's sister. Urination improved. Sodium on 05/07/11 was 138. Continue current treatment. Recheck sodium in 2-3 weeks. documented in this encounter Plan of Treatment Upcoming Encounters Date Type Department Care Team (Late st Contact Info) Description 09/09/2024 10:20 EST Office Visit [facility] Endocrinology - [facility] [address] [place] [address] Day Littlejohn MD PhD [address] [facility] [address] [place] [address] documented as of this encounter Visit Diagnoses Not on filedocumented in this encounter Care Teams Instructional Design Specialist Relationship Specialty Start Date End Date Yossi Torres MD [address] [place] [address] [address] BU[address]RAGO [address] [place] [phone] PCP - General 04/17/11 03/14/16 documented as of this encounter
--- OUTSIDE RECORDS SUMMARY | 2024-03-05 15:45 | XMS_ITS | Encounter Summary ---
Author Organization [facility] Address [address] [place] [address] Care Team Providers Care Pump Stitcher Name Role Phone Yossi Torres MD Primary Care Provider [phone] Reason for Visit * Reason Comments Pituitary Abnormality f/u Encounter Details Date Type Department Care Team (Latest Contact Info) Description 05/03/2011 11:20 EDT Office Visit [facility] Endocrinology - [facility] [address] [place] [address] Wilder Zaidi, [address] [facility] [address] [place] [address] 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CMS-HCC) ([facility]); 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[facility]-CMS) Social History Tobacco Use [...] Sign Reading Time Taken Comments Blood Pressure 124/74 05/03/2011 1125 EDT Pulse 68 05/03/2011 1125 EDT Temperature - - Respiratory Rate - - Oxygen Saturation - - Inhaled Oxygen Concentration - - Weight 84.9 kg (187 lb 3.2 oz) 05/03/2011 1125 E DT Height 170.2 cm (5' 7) 05/03/2011 1125 EDT Body Mass Index 29.32 05/03/2011 1125 EDT documented in this encounter Patient Instructions * Patient Instructions* Wilder Zaidi DO - 05/03/2011 12:00 EDT 1. Increase DDAVP to 0.1 (one tablet) in the morning and continue 0.5 (1/2 tablet) at bedtime 2. Check sodium level in 4 days 3. Call with questions, concerns or significant change in symptoms 2. 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 Miguel Angel is accompanied today by hissister and his caseworkers including his nurse as well as a couple who he lives with. Rahda Conteh is here from [facility] as well as both his caretakers. I received a letter from Dr Rondon on 03/26/2011 where he expressed concern that the caregivers had told him that there was some increase in urine volume and behavioral issues, that Miguel Angel's hr internship did not contact my office with these concerns and make the patient an appointment to see me and is here today to discuss these issues. Upon interview today, the caretakers note that the last week or so the behavioral issues have significantly improved. Miguel Angel is about to begin starting a school program, which they are excited about. They do note he has increased urination, particularly around noontime. No significant nocturia and there are multiple times during the week where his diaper is dry when he wakes up in the morning. He is taking the DDAVP with meals currently at 0.05 mg twice a day. Miguel Angel is unable to really communicate whether he is thirsty. They note some significant increase in urination after noontime with multiple trips to the bathroom. He is compliant with his medications. He is currently on 80 ounces per day fluid restriction. Denies significant changes in his weight. No complaints of cold intolerance, moving his bowels well, no puffiness around his eyes. Taking his thyroid medication first thing in themorning on an empty stomach. With regards to his adrenal insufficiency, the patient is compliant with his medications, per his caretakers. He has not had to stress dose. He has been relatively healthy. As noted above, his weight has been stable. Appetite appears stable. No falls, weakness or fatigue, per their report. Miguel Angel is currently taking AndroGel 5 grams daily. It seems to improve his symptoms. His morning testosterone on 02/21/2011 was quite low at less than 10, but at this point they aretreating him with testosterone to relieve some of his symptoms, particularly the hot flashes and behavioral issues. PAST MEDICAL HISTORY: Reviewed as documented in electronic medical record. MEDICATIONS: Reviewed as documented in electronic medical record. ALLERGIES: Reviewed as documented in electronic medical record. OBJECTIVE: Blood pressure is 124/74, pulse is 68. I attempted to do orthostatic blood pressures, but was unsuccessful as Miguel Angel was unable to cooperate. Weight is 187 pounds. This is up 8 pounds from when I saw him back in 06/2010. BMI is 29. In general, the patient is a 20-year-old male who is nonverbal but is able to communicate through noises and gestures. He appears in no acute distress. HEENT: Eyes: No lid lag or periorbital edema noted. Extraocular muscles are intact. Sclerae are anicteric. Mouth: Mucous membranes moist and pink in color. No oral lesions seen. Dentition is in good repair. No oral thrush. Neck is supple without adenopathy. No JVD or carotid bruits appreciated. His thyroid sits low in the neck, is without tenderness or nodules to palpation.Respiratory: Lungs are clear to auscultation bilaterally. Cardiovascular: Heart is regular without murmurs, rubs or gallops. GI: Abdomen is soft, nontender, nondistended, good bowel sounds in all 4 qu adrants. Extremities: No clubbing, cyanosis or edema. Strength is 5/5 and equal bilaterally withoutproximal muscle weakness. Neuro: DTRs are +2/4 and equal bilaterally in all 4 extremities but difficult to elicit somewhat in his upper extremities. Psych: The patient is nonverbal but he seems appropriate and listens to his caretakers and his sister and is able to sit through quite a lengthy visittoday as we discussed multiple issues with multiple folks. Laboratory data: 1. Lab work on 11/16/2010 showed a total testosterone of 73, free testosterone 0.9. A number of sodium values that have been faxed to me by Dr Torres note values in the mid to upper normal range with a few instances of hypernatremia in the summertime where we increased his fluid intake. 2. On 07/13/2010 he had a free T4 that was normal at 1.47. 3. The most recent total testosterone on 02/21/2011 was less than 10. He had a free T4 of 1.3 on 02/21/2011. ASSESSMENT: Mr Miguel Angel Burgos is a 20-year-old male with panhypopituitarism and central diabetes insipidus, secondary to resection of craniopharyngioma in 2004. 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 He currently lives with his caregivers. A. 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 Miguel Angel appears to be clinically euvolemic today. DDAVP dosing should be altered to improve polyuria. Fluid restriction seems appropriate at this point but would like to increase his DDAVP in the morning to a full tablet at 0.1. Typically patients need somewhere between 0.1 and 0.8 units of DDAVP to maintain a normal sodium and urine volume that is tolerable, both to the patient and his caregivers. We reviewed the signs and symptoms of hyponatremia today with the hr internship, nurse and patient's sister, although the subtle signs would bedifficult to tell on Miguel Angel. If he were to become lethargic, have nausea, vomiting, complaint of headaches, etc, they should contact my office immediately. We will continue on this current dose of 80 ounces of fluid restriction per day. We will recheck a sodium in 4 days. We will call the patient's providers with that number. B. Secondary hypothyroidism. Appears clinically euthyroid. Most recent free T4 drawn in 02/2011 was normal. Continue on current dose of levothyroxine. Takes the medicine properly first thing in the morning on an empty stomach. C. Secondary adrenal insufficiency. The patient continues to remain on a relatively high-dose of hydrocortisone at a total 40 mg daily. There have been attempts to decrease his steroid dosing, which has caused some behavioral problems in the past. Seroquel seems to be improving his behavior; may consider titrating in the future. Weight has gone up 8 pounds since I saw him in June and we will need to keep a close eye on that. He is starting school and has regular exercise. He wears a [employer] bracelet. He also has injectable hydrocortisone at home. The caretakers are able to articulate when and how to use the injectable medication and when and how to stress dose his oral steroid medications. He has not had to stress dose since I saw him in June. The patient received a flu shotand Pneumovax vaccination as recommended. D. Secondary hypogonadism. Switched to AndroGel, doing well. Last level was normal. Difficult to ascertain symptoms. Given his relative high dose of steroids testosterone may help alleviate some of the negative effects on his bones. Continue to evaluate his need for testosterone therapy and dose adj ustments, though it is quite difficult with Miguel Angel. E. Growth hormone deficiency. Miguel Angel's parents have not been interested in pursuing adult growth hormone replacement in the past. We did not discuss that at today's visit, but we need to revisit that at some point PLAN: 1. Increase DDAVP to 0.1 mg in the morning and continue 0.05 mg in the evening. 2. Reviewed the signs and symptoms of hyponatremia with a caregiver, sister and nurse and encouraged him to call myself or the on-call provider after hours if there are any concerning symptoms. 3. Will recheck sodium in 4 days. We will follow closely with a dose adjustment to make sure his water intake is adequate. May consider dropping down his fluid intake if his sodiums are somewhat low. 4. Monitor urinary frequency and asked Bettina and Miguel Angel's caregivers to contact me with an update on how that is going. 5. I will see the patient back in 6 months. Electronically Signed by Wilder Zaidi DO 05/21/2011 09:14 Wilder Zaidi DO - Wilder Zaidi DO - Job ID: SM Doc ID: [id number] Ext Doc ID: [id number] cc: Yossi Torres MD * Wilder Zaidi DO - 05/09/2011 0941 EDT This office note has been dictated. documented in this encounter Plan of Treatment Upcoming Encounters Date Type Department Care Team (Late st Contact Info) Description 09/09/2024 10:20 EST Office Visit [facility] Endocrinology - [address] [id number] Day Littlejohn MD PhD [address] [place] [address] [address] [place] [address] documented as of this encounter Visit Diagnoses Diagnosis 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HCC-CMS) Diabetes insipidus 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HCC-CMS) Panhypopituitarism documented in this encounter Discontinued Medications Medication Sig Discontinue Reason Start Date End Da te desmopressin (DDAVP) 0.1 mg tablet TAKE 1/2 TABLET TWO TIMES A DAY Reorder 03/18/2011 05/03/2011 documented as of this encounter Care Teams Pump Stitcher Relationship Specialty Start Date End Date Yossi Torres MD [address] [place] [address] DR BUITRAGO [address] [place] [id number] PCP - General 04/17/11 03/14/16 documented as of this encounter
--- OUTSIDE RECORDS SUMMARY | 2024-03-05 15:45 | XMS_ITS | Encounter Summary ---
Author Organization [facility] Address [address] [place] [address] Care Team Providers Care Supervisor Pastry Name Role Phone Akil Serrano MD Primary Care Provider [phone] Encounter Details Date Type Department Care Team (Late st Contact Info) Description 12/13/2010 Results Only Imaging [facility]- [facility] [phone] Yossi Torres MD [address] [place] [address] [address] [place] [address] Social History Tobacco Use Types Packs/Day Years [...] Description 09/09/2024 10:20 EST Office Visit [facility] Endocrinology - [facility] [address] [place] [address] Day Littlejohn MD PhD [address] [facility] [address] [place] [address] documented as of this encounter Visit Diagnoses Not on filedocumented in this encounter Care Teams Supervisor Pastry Relationship Specialty Start Date End Date Akil Serrano MD [address] [facility] [place] [address] PCP - General 02/21/10 04/16/11 documented as of this encounter
--- OUTSIDE RECORDS SUMMARY | 2024-03-05 15:45 | XMS_ITS | Encounter Summary ---
Author Organization [facility] Address [address] [place] [address] Care Team Providers Care Bicycle Rental Clerk Name Role Phone Akil Serrano MD Primary Care Provider [phone] Yossi Torres MD Primary Care Provider [phone] Emilee Cody MD Primary Care Provider + Ren Vaz MD Primary Care Provider [phone] Reason for Visit * Reason Comments Other Encounter Details Date Type Department Care Team (Late st Contact Info) Description 03/18/[address] [facility] Endocrinology - [facility] [address] [place] [address] Wilder Zaidi DO [address] [facility] [address] [place] [address] Other Social History Tobacco Use [...] TAKE 1/2 TABLET TWO TIMES A DAY 30 Each 4 03/18/2011 05/03/2011 documented in this encounter Miscellaneous Notes * Telephone Encounter - Tejal Carreno RN - 03/19/2011 1123 EDT Script for ddavp po called in. However, i see that there is no repeat sodium level in our labs or scanned media. Phone is out of service so i will mail out lab req to caregivers. If he has had a recent sodium level drawn then they can ignore this. documented in this encounter Plan of Treatment Upcoming Encounters Date Type Department Care Team (Late st Contact Info) Description 09/09/2024 10:20 EST Office Visit [facility] Endocrinology - [facility] [address] [place] [address] Day Littlejohn MD PhD [address] [facility] [address] [place] [address] documented as of this encounter Visit Diagnoses Not on filedocumented in this encounter Discontinued Medications Medication Sig Discontinue Reason Start Date End Da te desmopressin (DDAVP) 0.1 mg tabletIndications: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HCC-CMS) Take by mouth. Take one-half tab by mouth twice a day. 06/19/2010 03/19/2011 documented as of this encounter Care Teams Bicycle Rental Clerk Relationship Specialty Start Date End Date Akil Serrano MD [address] [facility] [place], [place] [id number] PCP - General 02/21/10 04/16/11 Yossi Torres MD [address] [place] [address] [address] [place] [phone] PCP - General 04/17/11 03/14/16 Emilee Cody MD [address] [place] [address] [address] [place] [phone] PCP - General 03/15/16 09/29/18 Ren Vaz MD [facility] [place] [address] PCP - General 09/30/18 documented as of this encounter
--- OUTSIDE RECORDS SUMMARY | 2024-03-05 15:45 | XMS_ITS | Encounter Summary ---
Author Organization [facility] Address [address] [place] [address] Care Team Providers Care Gas Refrigerator Servicer Name Role Phone Akil Serrano MD Primary Care Provider [phone] Encounter Details Date Type Department Care Team (Late st Contact Info) Description 02/24/2011 22:08 EDT - 02/25/2011 18:38 EDT Hospital Encounter [facility] Neurosurgery [address], [place] [id number] Jason Olea MD [address] [facility] [place] [address] Anatoliy Perez MD [address] [place] [phone] 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CMS-HCC) (HCC-CMS) Discharge Disposition: Home or Self Care Social [...] Sign Reading Time Taken Comments Blood Pressure 135/86 02/25/2011 1635 EDT Pulse 80 02/25/2011 1100 EDT Temperature 33.8 ??C (92.8 ??F) 02/25/2011 1 635 EDT re-taken and got the same result; RN notified- Lindsey Respiratory Rate 20 02/25/2011 1635 EDT Oxygen Saturation 100% 02/25/2011 163 5 EDT Inhaled Oxygen Concentration - - Weight 83.5 kg (184 lb) 02/25/2011 1416 EDT Height 170.2 cm (5' 7) 02/25/2011 1416 EDT Body Mass Index 28.82 02/25/2011 1416 EDT documented in this encounter Discharge Summaries * Shola Szymanski - 02/25/2011 1817 EDT Discharge Summary Chief Complaint/Reason for Admission: General Anesthesia for MRI, Pica syndrome Principal/Final Diagnosis: Pica syndrome Prognosis: good Condition at Discharge: Stable Relevant Studies at Discharge: MRI pending Assessment at Discharge: Vital signs: Patient Vitals in the past 12 hrs: BP Temp Temp src Pulse Resp SpO2 Height Weight 02/25/11 1635 135/86 mmHg 33.8 ??C (92.8 ??F) Tympanic - 20 100 % - - 02/25/11 1515 115/61 mmHg 36 ??C (96.8 ??F) Tympanic - 18 98 % - - 02/25/11 1500 104/58 mmHg - - - 12 96 % - - 02/25/11 1459 102/65 mmHg 35.3 ??C (95.5 ??F) Tympanic - 12 96 % - - 02/25/11 1416 - - - - - - 170.2 cm (67) 83.462 kg (184 lb) 02/25/11 1100 111/71 mmHg 36.1 ??C (97 ??F) - 80 14 96 % - - 02/25/11 0727 115/61 mmHg 35.6 ??C (96.1 ??F) Tympanic 79 16 96 % - - Hospital Course: 20 y.o. 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 Mr. Burgos also has a developmental delay history, PICA syndrome, and seizure history. Mr. Burgos is scheduled for an MRI on 02/24/11. He has been unable to obtain his last few scheduled MRI due to his PICA syndrome (he eats prior to the scan). As such, Mr. Burgos is here inpreparation for his MRI tomorrow. The patient was admitted for MRI with general sedation. The MRI was done without any complications and patient was stable for discharge post-MRI. CC: Anatoliy Marrufo MD Discharge Summary Completed: 02/25/2011 documented in this encounter Discharge Instructions * Discharge Instructions* Shola Szymanski - 02/25/2011 18:22 EDT Follow up with Neurosurgery as scheduled documented in this encounter Medications at Time of Discharge Medication Sig Dispensed Refills Start Date End Date acetaminophen (TYLENOL) 325 mg tablet Take 200 mg by mouth every 4 hours as needed for Pain or Fever. Reported on 10/31/2016 02/25/2011 Cholecalciferol, Vitamin D3, 400 unit Tab Take 2.5 Tablets by mouth daily. 08/24/2010 Melatonin 3 mg Tab Take 10 mg by mouth at bedtime. 08/24/2010 quetiapine (SEROQUEL) 300 mg tablet Take 200 mg by mouth at bedtime. 08/24/2010 desmopressin (DDAVP) 0.1 mg tabletIndications:Prima ry central diabetes insipidus (HCC-CMS) Take by mouth. Take one-half tab by mouth twice a day. 15 Tab 11 06/19/2010 03/19/2011 hydrocortisone (CORTEF) 10 mg tablet Take 10 mg by mouth 2 times daily. Takes @@ 1200 & 1700 05/29/2010 11/08/2014 hydrocortisone (CORTEF) 20 mg tablet Take 0.5 Tablets by mouth daily. Takes in noon 09/04/2023 levothyroxine (SYNTHROID) 200 mcg tablet Take 200 mcg by mouth daily. 07/26/2013 modafinil (PROVIGIL) 200 mg tablet Take 200 mg by mouth daily. 04/18/2011 testosterone (ANDROGEL) 1 %(50 mg/5 gram) gel Place 5 g onto the skin daily. 30 Packet 5 07/27/2010 06/18/2011 ZONISAMIDE ORAL Take 75 mg by mouth at bedtime. 08/24/2010 12/27/2014 documented as of this encounter Discharge Disposition Disposition Code Departure Means Destination Home or Self Care documented in this encounter Progress Notes * Millicent Pavon - 02/26/2011 0710 EDT CM DC NOTE; 02/25/11 DC w/o CM&SW Dept. services ordered. // Randy Pavon RN #[id number] * Millicent Pavon - 02/25/2011 1043 EDT Case Management Assessment Working Diagnosis/Presenting Problem: Panhypopituitarism; here for MRI; Pt is pica eater and can't be kept NPO at home for MRI so was adm for NPO overnight; will have MRI and anticipate DC home. Discussed case w/ Dr Maxi Leone. Living Arrangements: Lives w/ Marta & Aaron Ervin (for about 1 year now); they have one oftherclient in their home. Functional Status (psychosocial and physical): Needs assistance w/ most ADL's (feeding and dressingassistance because he's blind). Social Supports: Sister Bettina Burgos (Guardian, sister) was present and provided all info. She lives about 1 mile away from Miguel Angel. Existing Community Resources: Has a wheelchair but rarely uses it; no past HH use. They do have a glass processing worker who assist's Miguel Angel when he stay's w/ Bettina which is 1-2 times a week, sometimes overnight stay. Advanced Directives/DPOA: Bettina Burgos, sister & guardian Cultural/Spiritual Needs: unk Insurance/Financial Needs: [place] Transportation Needs: Sister provides transportation Patient Goals: Return to his home Assessment and Discharge Care Plan: 02/25/11 I met w/ Miguel Angel, his sister Bettina and another young woman in the room; Miguel Angel doesn't speak much but did manage yes responses to a couple of questions; Bettina answered all my assessment questions. He was brought to the hospital because he has a hx of brain tumor w/ resection. He needs periodic MRI's but they've been unable to get them in the past because he is a Pica eater and they can't keep him NPO. He was brought to the hospital to maintain NPO status and have MRI done today; plan is to dc him w/ Bettina to return to his home w/ Marta and Aaron Ervin. Bettina said Miguel Angel has done well staying w/ the [facility]. No dc needs were identified during this visit. I will follow as needed. // Randy Pavon RN #[id number] documented in this encounter H&P Notes * Elsi Guillen MD - 02/24/2011 0794 EDT Neurosurgery Chief Complaint/ History of Present Illness/ Miguel Angel Kim Aubrey Loja is a 20 y.o. 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 Mr. Burgos also has a developmental delay history, PICA syndrome, and seizure history. Mr. Burgos is scheduled for an MRI on 02/24/11. He has been unable to obtain hislast few scheduled MRI due to his PICA syndrome (he eats prior to the scan). As such, Mr. Burgos ishere in preparation for his MRI tomorrow. Mr. Burgos was non-verbal and unable to answer questions related to review of systems. Past medical and surgical history/ Craniopharyngioma resection in 2004 (transphenoidal and intracranial) Medications/ Melatonin Zonisamide Testosterone Desmopressin Hydrocortisone Lovothyroxine Modafinil Quietiapine NO KNOWN DRUG ALLERGIES Social history/ Does not smoke Does not drink alcohol Objective/ Blood pressure 117/68, temperature 35.3 ??C (95.5 ??F), temperature source Tympanic, resp. rate 16,SpO2 95.00%. Awake Opens eyes spontaneously Grunts, groans, does not verbalize Moves all extremities spontaneously and on command. UE strength, 5/5, chrome plater helper bilaterally Downward toes No clonus Assesment/ Miguel Angel Kim Aubrey Loja is a 20 y.o. Male with a history of of craniopharyngioma s/p transphenoidal and intracranial approaches, complicated by intracranial hemorrhage with resulting cortical blindness, left hemiparesis, panhypopituitarism, central diabetes insipitis. Also has PICA syndrome. Plan for MRI scheduled for 1300PM tomorrow. Plan/ NPO at midnight except for medications SAYRA/SCD for DVT prophylaxis Elsi Guillen MD documented in this encounter Procedure Notes * Cougar Hunter, Scan - 02/24/2011 0000 EDTAssociated Order(s): ECG REPORT - SCANNED documented in this encounter OR Notes * Anesthesia Procedure Notes - Cougar Hunter, Scan - 02/24/2011 0000 EDT * Anesthesia Procedure Notes - Cougar Hunter, Scan - 02/24/2011 0000 EDT documented in this encounter Miscellaneous Notes * Anesthesia Post-Eval - Millicent Dickerson MD - 02/25/2011 1523 EDT Post Anesthesia Evaluation Note Date of Service: 02/25/2011 Miguel Angel Burgos Jr., a 20 y.o. year old male has received General Anesthesia today. He has been evaluated, assessed and discharged from anesthesia care with stable cardiorespiratory function and alertmental status. The last set of recorded vital signs and pain rating were reviewed: Height: 170.2 cm (67) (02/25/111415), Weight : 83.462 kg (184 lb) (02/25/111415), BSA (Calculated - sq m): 1.99 sq meters (02/25/111415), Temp: 36 ??C (96.8 ??F) (02/25/111514), Heart Rate: 75 BPM (02/25/111514), BP: 115/61 mmHg (02/25/111514), Resp: 18 (02/25/111514), SpO2: 98 % (02/25/111514),Adult Nonverbal Pain ScaleTotal: 0 Total Vocal: 1 Miguel Angel Burgos Jr. participated in this evaluation unless otherwise noted. His pain, nausea and vomiting have been managed and his body temperature and fluid balance have been restored. Additional monitoring and assessment needs have been addressed. If present, any postoperative events are documented below. MILLICENT DICKERSON MD 02/25/2011 15:23 * Anesthesia Pre-Eval - Millicent Dickerson MD - 02/25/2011 1422 EDT Anesthesia Pre Evaluation Name: MIGUEL ANGEL BURGOS JR. : 1990 Age: 20 y.o. Date: 02/25/2011 Ht: 170.2 cm (67) Wt: 83.462 kg (184 lb) ASA Class: Grade III Surgeon: Procedure: Diagnosis: No Known Allergies Patient Active Problem List Diagnoses Code ??? Panhypopituitarism 253.2 ??? Primary central diabetes insipidus 253.5G ??? Craniopharyngioma 237.0K ??? 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 Secondary hypothyroidism 244.8C ??? Growth hormone deficiency 253.3C Airway Evaluation: Mallampati: (NA) Mouth Opening: Normal Jaw Thrust: (NA) T-M Distance: Normal Neck: (NA) Teeth: Full Dentures: Partial Dentures: Anesthesia Hx: Previous Patient or Family Problems with Anesthesia: None Fasting Status Confirmed: Yes Vital Signs: BP 111/71 Pulse 80 Temp 36.1 ??C (97 ??F) Resp 14 Ht 170.2 cm (67) Wt 83.462 kg (184 lb) BMI 28.82 kg/m2 SpO2 96% History reviewed. No pertinent past surgical history. No outpatient prescriptions have been marked as taking for the 02/24/11 encounter (Hospital Encounter) with ANATOLIY PEREZ Current facility-administered medications Medication Route Frequency ??? modafinil (PROVIGIL) tablet 100 mg Oral DAILY ??? Cholecalciferol (Vitamin D3) tablet 400 Units Oral BID ??? hydrocortisone (CORTEF) tablet 20 mg Oral DAILY ??? hydrocortisone (CORTEF) tablet 10 mg Oral BID ??? levothyroxine (SYNTHROID) tablet 200 mcg Oral DAILY ??? quetiapine (SEROQUEL) tablet 300 mg Oral QHS ??? testosterone (ANDROGEL) 1 %(50 mg/5 gram) gel 5 g Topical DAILY ??? zonisamide (ZONEGRAN) capsule 75 mg Oral DAILY ??? sodium chloride 0.9 % with KCl 20 mEq/L infusion Intravenous CONTINUOUS ??? acetaminophen (TYLENOL) tablet 325-650 mg Oral Q4H PRN ??? acetaminophen (TYLENOL) solution 325-650 mg Per NG tube Q4H PRN ??? acetaminophen (TYLENOL) suppository 325-650 mg Rectal Q4H PRN ??? ondansetron (PF) (ZOFRAN) injection 2-4 mg Intravenous Q4H PRN ??? lorazepam (ATIVAN) injection 1 mg Intravenous Q4H PRN ??? hydrALAzine (APRESOLINE) 10 mg in sodium chloride (NS) 0.9 % 50 mL IVPB Intravenous Q1H PRN ??? desmopressin (DDAVP) tablet 0.05 mg Oral BID ??? pneumococcal vaccine (PPV23) (PNEUMOVAX) injection 0.5 mL Intramuscular ONCE Review of Systems: Smoker: No History of Respiratory Infections: No Asthma: No Heart Murmur: No High Blood Pressure: No History of [place]: No Cardiac Functional Limitations:: <4 METS Angina/Palpitations: No Blood Vessel Disease: No Neurological Disease: Yes Type of Neurologic Disease: Seizures;Weakness;Other (s/p craniopharyngeoma resection, blind, hypopituitary) Muscular Degeneration: Yes Type of Muscular Degeneration: contractures Severity of Muscular Degeneration: moderate Myotonia Present: No Backpain/Neckpain: No Reflux/Heartburn/Hiatial Hernia: No Liver Disease: No Thyroid Disease: Yes Type of Thyroid Disease: Hypothyroid;Med Controlled Kidney Disease: No Diabetes: Yes Onset of Diabetes: (Diabetes insipidus) Anemia: No Bleeding Disorders: No Infectious Disease: No Opioid Dependency: No Contact Lenses/Glasses: None Mentally Challenged: Yes (blind, non-verbal, hemiparetic L arm) Labs: Lab Results Component Value Date WBC 4.96 10/26/2008 WBC 3.60* 11/28/2007 WBC 5.50 03/06/2005 HGB 7.9* 10/26/2008 HGB 14.2 11/28/2007 HGB 12.8* 03/06/2005 HCT 23.9* 10/26/2008 HCT 31* 10/21/2008 HCT 41.6 11/28/2007 HCT 37.4 03/06/2005 MCV 76* 10/26/2008 MCV 75* 11/28/2007 MCV 81 03/06/2005 PLT 98* 10/26/2008 PLT 216 11/28/2007 PLT 346* 03/06/2005 NA 142 02/21/2010 NA 132* 04/13/2009 NA 121* 10/21/2008 NA 134* 10/18/2004 K 4.3 02/21/2010 K 4.4 04/13/2009 K 4.6 10/21/2008 K 3.5* 10/18/2004 CL 105 02/21/2010 CL 96 04/13/2009 CO2 26 02/21/2010 CO2 26 04/13/2009 BUN 10 02/21/2010 BUN 14 04/13/2009 CREATININE 0.81 02/21/2010 CREATININE 0.66* 04/13/2009 INR 1.2* 10/22/2008 INR 1.1 10/17/2004 PROTIME 15.4* 10/22/2008 PROTIME 14.9* 10/17/2004 ASA Class: Grade III Anesthesia Plan: Type(s) of Anesthesia Planned: General Risks discussed include: allergic reaction;aspiration Surgical Anesthesia Protocol to be used: Yes, Utilize Pre Op Hold Order Set The plan was discussed with the Guardian, and all questions were answered to the Guardian's satisfaction. MILLICENT DICKERSON MD 02/25/2011 14:22 * Plan of Care - Indiana Lawson RN - 02/25/2011 1040 EDT Problem: FALL RISK Goal: Patient will remain free of falls Intervention: Hourly patient checks Active Multi-Disciplinary problems: FALL RISK [[id number]] (02/25/11) Data: patient lying with eyes closed follows commands verbal response difficult to understand Action: family at bedside bed alarm for safety frequent checks Response: MRI scheduled at 1300 will con tinue to observe. Indiana Lawson RN 02/25/2011 10:37 * Plan of Care - Lali Park RN - 02/25/2011 0306 EDT Problem: FALL RISK Goal: Patient will remain free of falls Data: pt needing assistance with ambulation Action: bed alarm used. Call morris at BS. Caregiver at BS. 3/4 siderails up. Response: pt sleeping comfortably. Continue to monitor Lali Park RN 02/25/2011 3:01 * Scanned Note-Null - Cougar Hunter, Scan - 02/24/2011 0000 EDT * Scanned Note-Null - Cougar Hunter, Scan - 02/24/2011 0000 EDT * Scanned Note-Null - Cougar Hunter, Scan - 02/24/2011 0000 EDT documented in this encounter Plan of Treatment Upcoming Encounters Date Type Department Care Team (Late st Contact Info) Description 09/09/2024 10:20 EST Office Visit [facility] Endocrinology - [address] [address] Day Littlejohn MD PhD [address] [place] [address] [address] [place] [address] documented as of this encounter Procedures Procedure Name Priority Date/Time Associated Diagnosis Comments ECG REPORT - SCANNED 02/28/2011 11:47 EDT documented in this encounter Results * ECG REPORT - SCANNED (02/28/2011 11:47 EDT) 02/28/2011 11:4 7 EDT Narrative Procedure Note Cougar Hunter, Scan - 02/24/2011 0:00 EDT Scan Cougar Hunter PROCEDURE/MINOR SURG ICAL ORDERABLES documented in this encounter Visit Diagnoses Diagnosis 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HCC-CMS) Diabetes insipidus documented in this encounter Administered Medications Inactive Administered Medications - up to 3 most recent administrations Medication Order MAR Action Action Date Dose Rate Site Cholecalciferol (Vitamin D3) tablet 400 Units 400 Units, oral, 2 TIMES DAILY, First dose on 02/24/11 at 2245, Until Discontinued, Routine Given 02/25/2011 8:03 EDT 400 Units desmopressin (DDAVP) tablet 0.05 mg 0.05 mg, oral, 2 TIMES DAILY, First dose (after last modification) on Fri02/25/11 at 0900, Until Discontinued, Routine Given 02/25/2011 8:04 EDT 0.05 mg hydrocortisone (CORTEF) tablet 10 mg 10 mg, oral, 2 TIMES DAILY, First dose on Fri02/25/11 at 1200, Until Discontinued, Routine Given 02/25/2011 12:41 EDT 20 mg hydrocortisone (CORTEF) tablet 20 mg 20 mg, oral, DAILY, First dose on Fri02/25/11 at 0900, Until Discontinued, Routine Given 02/25/2011 8:04 EDT 20 mg levothyroxine (SYNTHROID) tablet 200 mcg 200 mcg, oral, DAILY, First dose on Fri02/25/11 at 0900, Until Discontinued, Routine Given 02/25/2011 8:03 EDT 200 mcg modafinil (PROVIGIL) tablet 100 mg 100 mg, oral, DAILY, First dose (after last modification) on Fri02/25/11 at 0900, Until Discontinued, Routine Given 02/25/2011 8:05 EDT 100 mg documented in this encounter Historical Medications * This list may reflect changes made after this encounter. Medication Sig Dispensed Refills Start Date End Date acetaminophen (TYLENOL) 325 mg tablet Take 200 mg by mouth every 4 hours as needed for Pain or Fever. Reported on 10/31/2016 02/25/2011 added in this encounter Active and Recently Administered Medications Times are shown in EDT. Scheduled Medication Order 02/23/2011 02/24/2011 02/25/2011 Cholecalciferol (Vitamin D3) tablet 400 Units (CANCELED) 400 Units, oral, 2 TIMES DAILY, First dose on Fri02/24/11 at 2245, Until Discontinued, Routine 2252 (Not Given - Provider: Lali Park RN - Reason: Patient/family refused) 802 (Given - Provider: Indiana Lawson RN) desmopressin (DDAVP) tablet 0.05 mg (CANCELED) 0.05 mg, oral, 2 TIMES DAILY, First dose (after last modification) on Fri02/25/11 at 0900, Until Discontinued, Routine 0804 (Given - Provid er: Indiana Lawson RN) hydrocortisone (CORTEF) tablet 10 mg (CANCELED) 10 mg, oral, 2 TIMES DAILY, First dose on Fri02/25/11 at 1200, Until Discontinued, Routine 1241 (Given - Provid er: Indiana Lawson RN - Comment: gave only 10mg)1803 (Hold - Provider: Lindsey Aamro - Reason: Other - Comment: pt get at nighttime) hydrocortisone (CORTEF) tablet 20 mg (CANCELED) 20 mg, oral, DAILY, First dose on Fri02/25/11 at 0900, Until Discontinued, Routine 0804 (Given - Provid er: Indiana Lawson RN) levothyroxine (SYNTHROID) tablet 200 mcg (CANCELED) 200 mcg, oral, DAILY, First dose on Fri02/25/11 at 0900, Until Discontinued, Routine 0803 (Given - Provid er: Indiana Lawson RN) modafinil (PROVIGIL) tablet 100 mg (CANCELED) 100 mg, oral, DAILY, First dose (after last modification) on Fri02/25/11 at 0900, Until Discontinued, Routine 0805 (Given - Provid er: Indiana Lawson RN) PRN Medication Order 02/23/2011 02/24/2011 02/25/2011 acetaminophen (TYLENOL) tablet 325-650 mg(Linked Group 1) 325-650 mg, oral, EVERY 4 HOURS PRN, Starting on 02/24/11 at 2227, Until Fri02/25/11 at 204, Pain, Fever, Routine Linked Groups Order Group 1: acetaminophen (TYLENOL) tablet 325-650 mgJump to med 325-650 mg, oral, EVERY 4 HOURS PRN, Starting on 02/24/11 at 2227, Until Fri02/25/11 at 204, Pain, Fever, Routine Or acetaminophen (TYLENOL) solution 325-650 mg (CANCELED) 325-650 mg, per ng tube, EVERY 4 HOURS PRN, Starting on 02/24/11 at 2227, Until Fri02/25/11 at 204, Pain, Fever, Routine Or acetaminophen (TYLENOL) suppository 325-650 mg (CANCELED) 325-650 mg, rectal, EVERY 4 HOURS PRN, Starting on 02/24/11 at 2227, Until 02/25/11 at 2041, Pain, Fever, Routine documented in this encounter Orders Medications Ordered That Gavin ht Not Have Been Administered Count Last Ordered Date First Ordered Date acetaminophen (TYLENOL) tablet 325 mg 1 atropine 0.1 mg/mL 10 mL syringe 0.5 mg 1 0 02/25/2011 naloxone (NARCAN) injection 0.2 mg 1 2010 acetaminophen (TYLENOL) solu tion 325-650 mg 1 02/24/2011 acetaminophen (TYLENOL) supp ository 325-650 mg 1 02/24/2011 acetaminophen (TYLENOL) tablet 325-650 mg 1 02/24/2011 desmopressin (DDAVP) tablet 0.1 mg 1 2010 hydrALAzine (APRESOLINE) 10 mg in sodium chloride (NS) 0.9 % 50 mL IVPB 1 02/24/2011 lorazepam (ATIVAN) injection 1 mg 1 011 Melatonin Tab 1 02/24/2011 Melatonin Tab 3 mg 1 02/24/2011 modafinil (PROVIGIL) tablet 200 mg 1 2010 ondansetron (PF) (ZOFRAN) injection 2-4 mg 1 02/24/2011 pneumococcal vaccine (PPV23) (PNEUMOVAX) injection 0.5 mL 1 02/24/2011 quetiapine (SEROQUEL) tablet 300 mg 1 02/24 sodium chloride 0.9 % with K Cl 20 mEq/L infusion 1 02/24/2011 testosterone (ANDROGEL) 1 %( 50 mg/5 gram) gel 5 g 1 02/24/2011 zonisamide (ZONEGRAN) capsule 75 mg 1 02/24 IV Count Last Ordered Date First Orde red Date IV REQUEST 1 02/25/2011 Admission Count Last Ordered Date First Orde red Date ADMIT TO OUTPATIENT 1 02/25/2011 NOTIFY PPS OF DISCHARGE COMPLETE 02/26/20 11 NOTIFY PPS PATIENT ARRIVAL IN PACU 2010 NOTIFY PPS PATIENT TRANSFERRED OUT OF PACU 1 02/25/2011 PPS NOTIFICATION OF PATIENT ARRIVAL ON UNIT 1 02/25/2011 ADMIT TO OBSERVATION 1 02/24/2011 ADMITTING CONDITION 1 02/24/2011 TEACHING SERVICE 1 02/24/2011 Discharge Count Last Ordered Date First Orde red Date DISCHARGE PATIENT 1 02/25/2011 documented in this encounter Care Teams Gas Refrigerator Servicer Relationship Specialty Start Date End Date Akil Serrano MD [address] [facility] [place] [address] PCP - General 02/21/10 04/16/11 documented as of this encounter
--- OUTSIDE RECORDS SUMMARY | 2024-03-05 15:45 | XMS_ITS | Encounter Summary ---
Author Organization [facility] Address [address] [place] [address] Care Team Providers Care Stem Roller Name Role Phone Yossi Torres MD Primary Care Provider [phone] Reason for Visit * Reason Comments Other Encounter Details Date Type Department Care Team (Late st Contact Info) Description 04/16/2012 Refill [facility] Endocrinology - [address] [address] Wilder Zaidi, [address] [facility] [address] [place] [address] Other Social History Tobacco Use [...] BY MOUTH EVERY MORNING AND 1/2 TABLET AT BEDTIME 140 Each 2 04/16/2012 01/12/2013 documented in this encounter Plan of Treatment Upcoming Encounters Date Type Department Care Team (Late st Contact Info) Description 09/09/2024 10:20 EST Office Visit [facility] Endocrinology - [address] [id number] Day Littlejohn MD PhD [address] [place] [address] [place] [phone] documented as of this encounter Visit Diagnoses Not on filedocumented in this encounter Discontinued Medications Medication Sig Discontinue Reason Start Date End Da te desmopressin (DDAVP) 0.1 mg tablet Take one tab in the morning and 1/2 tab at bedtime Reorder 05/03/2011 04/16/2012 documented as of this encounter Care Teams Stem Roller Relationship Specialty Start Date End Date Yossi Torres MD [address] [place] [address] DR BUITRAGO [address] [place] [phone] PCP - General 04/17/11 03/14/16 documented as of this encounter
--- OUTSIDE RECORDS SUMMARY | 2024-03-05 15:45 | XMS_ITS | Encounter Summary ---
Author Organization [facility] Address [address] [place] [address] Care Team Providers Care Hedge Fund Trader Name Role Phone Yossi Torres MD Primary Care Provider [phone] Reason for Visit * Reason Onset Date Comments Results 06/01/2011 Results 06/03/2011 Encounter Details Date Type Department Care Team (Late st Contact Info) Description 06/01/2011 Telephone [facility] Endocrinology - [facility] [address] [place] [address] Wilder Zaidi, 62 [facility] [address] [place] [address] Results; Results Social History Tobacco Use Types Packs/Day [...] encounter Miscellaneous Notes * Telephone Encounter - Callie Wolf - 06/03/2011 1250 EST Contacted Bettina with Dr. Zaidi's recommendation, she verbalized a good understanding and will have sodium drawn again in 2-3 weeks * Telephone Encounter - Gladys Willingham - 06/03/2011 1202 EST Bettina returning call from nurse. Please call * Telephone Encounter - Wilder Zaidi DO - 06/01/20112125 EST Please contact Miguel Angel's caretakers and his sister Bettina. Sodium from 05/27/11 was normal at 138. Please instruct them to continue current dose of DDAVP and water restriction. documented in this encounter Plan of Treatment Upcoming Encounters Date Type Department Care Team (Late st Contact Info) Description 09/09/2024 10:20 EST Office Visit [facility] Endocrinology - [address] [phone] Day Littlejohn MD PhD [address] [place] [address] [address] [place] [address] documented as of this encounter Visit Diagnoses Not on filedocumented in this encounter Care Teams Hedge Fund Trader Relationship Specialty Start Date End Date Yossi Torres MD [address] [place] [address] DR BUITRAGO [address] [place] [phone] PCP - General 04/17/11 03/14/16 documented as of this encounter
--- OUTSIDE RECORDS SUMMARY | 2024-03-05 15:45 | XMS_ITS | Encounter Summary ---
Author Organization [facility] Address [address] [place] [address] Care Team Providers Care Manager Life Insurance Name Role Phone Yossi Torres MD Primary Care Provider [phone] Reason for Visit * Reason Onset Date Comments Other 01/27/2014 Encounter Details Date Type Department Care Team (Late st Contact Info) Description 01/27/[address] [address] Wilder Zaidi, 62 [facility] [address] [place] [address] Other Social History Tobacco Use [...] Miscellaneous Notes * Telephone Encounter - Georgia Condon - 01/27/2014 0822 EDT close documented in this encounter Plan of Treatment Upcoming Encounters Date Type Department Care Team (Late st Contact Info) Description 09/09/2024 10:20 EST Office Visit [facility] Endocrinology [address] [address] Day Littlejohn MD PhD 62 [facility] [address] [place] [address] documented as of this encounter Visit Diagnoses Not on filedocumented in this encounter Care Teams Manager Life Insurance Relationship Specialty Start Date End Date Yossi Torres MD [address] [place] [address] DR BUITRAGO [address] [place] [phone] PCP - General 04/17/11 03/14/16 documented as of this encounter
--- OUTSIDE RECORDS SUMMARY | 2024-03-05 15:45 | XMS_ITS | Encounter Summary ---
Author Organization [facility] Address [address] [place] [address] Care Team Providers Care Welding Process Specialist Name Role Phone Yossi Torres MD Primary Care Provider [phone] Reason for Visit * Reason Onset Date Comments Results 12/25/2011 Encounter Details Date Type Department Care Team (Late st Contact Info) Description 12/25/2011 Telephone [facility] Endocrinology - [facility] [address] [place] [address] Wilder Zaidi DO 62 [facility] [address] [place] [address] Results Social History Tobacco Use [...] Telephone Encounter - Marta Rice RN - 12/25/2011 2592 EDT Phone call to Miguel Angel's home (left message for caregiver to call back) Phone call from Bettina (his guardian)--informed her of Dr. Zaidi's message below. * Telephone Encounter - Wilder Zaidi DO - 12/25/2011 1359 EDT Please contact Miguel Angel's caretakers by phone. Labs from [facility] dated 12/21/11 show normal sodium at 143. Kidney and thyroid function tests were normal. documented in this encounter Plan of Treatment Upcoming Encounters Date Type Department Care Team (Late st Contact Info) Description 09/09/2024 10:20 EST Office Visit [facility] Endocrinology - [address] [address] Day Littlejohn MD PhD 62 [facility] [address] [place] [address] documented as of this encounter Visit Diagnoses Not on filedocumented in this encounter Care Teams Welding Process Specialist Relationship Specialty Start Date End Date Yossi Torres MD [address] [place] [address] [address] [place] [phone] PCP - General 04/17/11 03/14/16 documented as of this encounter
--- OUTSIDE RECORDS SUMMARY | 2024-03-05 15:45 | XMS_ITS | Encounter Summary ---
Author Organization [facility] Address [address] [place] [address] Care Team Providers Care Pipe Coremaker Name Role Phone Yossi Torres MD Primary Care Provider [phone] Reason for Visit * Reason Onset Date Comments Other 06/23/2012 sodium 134 Encounter Details Date Type Department Care Team (Late st Contact Info) Description 06/23/2012 Telephone [facility] Endocrinology - [facility] [address] [place] [address] Wilder Zaidi DO [address] [facility] [address] [place] [address] Other (sodium 134) Social History Tobacco Use Types Packs/Day Years [...] Telephone Encounter - Wilder Zaidi DO - 06/23/2012 1519 EST Spoke with patient's sister via phone. Will have her decrease water intake back to 60 oz per day. Recheck sodium in on week. * Telephone Encounter - Wilder Zaidi DO - 06/23/2012 1200 EST Left message with patient's sister to call back. * Telephone Encounter - Shasta Rebolledo - 06/23/2012 1104 EST Pts guardian states pts sodium is at 134. Please call as they wanted the doctor paged. Thanks documented in this encounter Plan of Treatment Upcoming Encounters Date Type Department Care Team (Late st Contact Info) Description 09/09/2024 10:20 EST Office Visit [facility] Endocrinology - [facility] [address] [place] [address] Day Littlejohn MD PhD [address] [facility] [address] [place] [address] documented as of this encounter Visit Diagnoses Not on filedocumented in this encounter Care Teams Pipe Coremaker Relationship Specialty Start Date End Date Yossi Torres MD [address] [place] [address] [address] [place] [phone] PCP - General 04/17/11 03/14/16 documented as of this encounter
--- OUTSIDE RECORDS SUMMARY | 2024-03-05 15:45 | XMS_ITS | Encounter Summary ---
Author Organization [facility] Address [address] [place] [address] Care Team Providers Care Wood Carving Lathe Operator Name Role Phone Yossi Torres MD Primary Care Provider [phone] Reason for Visit * Reason Comments New Patient Visit head MRI Encounter Details Date Type Department Care Team (Latest Contact Info) Description 04/18/2011 12:00 EDT Office Visit [facility] Neurosurgery - [facility] [address] [place] [address] Marvin Perez MD [address] [place] [phone] Craniopharyngioma (CMS-HCC) (HCC-CMS) (Primary Dx) Discharge Disposition: Auto Discharge Social History Tobacco [...] Sign Reading Time Taken Comments Blood Pressure 108/60 04/18/2011 1213 EDT Pulse 80 04/18/2011 1213 EDT Temperature - - Respiratory Rate 20 04/18/2011 1213 EDT Oxygen Saturation - - Inhaled Oxygen Concentration - - Weight - - Height - - Body Mass Index - - documented in this encounter Discharge Disposition Disposition Code Departure Means Destination Auto Discharge documented in this encounter Progress Notes * French Folding Machine Operator, Scan - 04/19/2011 1045 EDT * Marvin Perez - 04/18/2011 1241 EDT This office note has been dictated. 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 This had originally been treated at the age of 14 years and most recently 5 years ago. He was to have a followup MRI scan yearly, but was lost to followup for a period of time. 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 He did undergo an MRI scan under general anesthetic. I reviewed these studies with his family today. There is no evidence of recurrent or residual disease at this time. I think we should repeat the scan in 2 years and if it remains clean, we will bump that out to 3 years, which will be at the 10-year marcela. We did discuss the role of antiseizure medications. They have been giving this a fair amount of thought and cannot recall specifically whether he truly did haveseizures. There was a report that he had a seizure which led to hospitalization at which time he had a very low-sodium. If this is the case, I would agree that antiseizure medications may not be necessary, but given his condition, it would not be uncommon to have a seizure disorder as well. I thinkthey will discuss this with you and I will leave it to your discretion if he should be weaned from these medicines. I look forward to seeing him back in 2 years. Sincerely, Electronically Signed by Marvin Perez MD 05/01/2011 15:54 Marvin Perez MD Master Sheet Clerk [facility] Division of Neurological Surgery - Marvin Perez MD - IVELISSE Job ID: SM Doc ID: [id number] Ext Doc ID: [id number] cc: Akil Serrano MD documented in this encounter Discontinued Medications Medication Sig Discontinue Reason Start Date End Da te modafinil (PROVIGIL) 200 mg tablet Take 200 mg by mouth daily. 04/18/2011 documented as of this encounter Care Teams Wood Carving Lathe Operator Relationship Specialty Start Date End Date Yossi Torres MD [address] [place] [address] [phone] PCP - General 04/17/11 03/14/16 documented as of this encounter
--- OUTSIDE RECORDS SUMMARY | 2024-03-05 15:45 | XMS_ITS | Encounter Summary ---
Author Organization [facility] Address [address] [place] [address] Care Team Providers Care Health And Safety Advisor Name Role Phone Yossi Torres MD Primary Care Provider [phone] Emilee Cody MD Primary Care Provider + Reason for Visit * Reason Onset Date Comments Results 10/08/2012 Encounter Details Date Type Department Care Team (Late st Contact Info) Description 10/08/2012 Telephone [facility] Endocrinology - [facility] [address] [place] [address] Wilder Zaidi, 62 [facility] [address] [place] [address] Results Social History Tobacco Use [...] Telephone Encounter - Georgia Rice RN - 10/08/2012 2404 EDT Phone call to Bettina (pt's sister) Aware of Dr. Zaidi's review of her labs (see below) Verbalizes understanding with no barriers. * Telephone Encounter - Wilder Zaidi DO - 10/08/2012 1319 EDT Please contact patiens caretakers or sister. Sodium is normal at 141. Continue current dose of DDAVP and water restriction documented in this encounter Plan of Treatment Upcoming Encounters Date Type Department Care Team (Late st Contact Info) Description 09/09/2024 10:20 EST Office Visit [facility] Endocrinology - [facility] [address] [place], [place] [phone] Day Littlejohn MD PhD 62 [facility] [address] [place] [address] documented as of this encounter Visit Diagnoses Not on filedocumented in this encounter Care Teams Health And Safety Advisor Relationship Specialty Start Date End Date Yossi Torres MD [address] [place] [address] [address] [place] [phone] PCP - General 04/17/11 03/14/16 Emilee Cody MD [address] [place] [address] [address] [place] [phone] PCP - General 03/15/16 09/29/18 documented as of this encounter
--- OUTSIDE RECORDS SUMMARY | 2024-03-05 15:45 | XMS_ITS | Encounter Summary ---
Author Organization [facility] Address [address] [place] [address] Care Team Providers Care Torch Cutter Name Role Phone Akil Serrano MD Primary Care Provider [phone] Reason for Visit * Reason Onset Date Comments Medications Refill 03/19/2011 Encounter Details Date Type Department Care Team (Late st Contact Info) Description 03/19/2011 Refill [facility] Endocrinology - [address] [phone] Tejal Carreno RN CDE Medications Refill Social History Tobacco Use Types [...] Telephone Encounter - Tejal Carreno RN - 03/25/2011 1631 EDT When processing script noted that pt never had repeat sodium level. Sending lab slip to caregivers. documented in this encounter Plan of Treatment Upcoming Encounters Date Type Department Care Team (Late st Contact Info) Description 09/09/2024 10:20 EST Office Visit [facility] Endocrinology [address] [address] Day Littlejohn MD PhD [address] [place] [address] [address] [place] [address] documented as of this encounter Visit Diagnoses Not on filedocumented in this encounter Care Teams Torch Cutter Relationship Specialty Start Date End Date Akil Serrano MD [address] [facility] [place] [address] PCP - General 02/21/10 04/16/11 documented as of this encounter
--- OUTSIDE RECORDS SUMMARY | 2024-03-05 15:45 | XMS_ITS | Encounter Summary ---
Author Organization [facility] Address [address] [place] [address] Care Team Providers Care Medical Front Desk Coordinator Name Role Phone Yossi Torres MD Primary Care Provider [phone] Reason for Visit * Reason Onset Date Comments Update 09/13/2013 Encounter Details Date Type Department Care Team (Late st Contact Info) Description 09/13/2013 Telephone [facility] Endocrinology - [facility] [address] [place] [address] Wilder Zaidi, 62 [facility] [address] [place] [address] Update Social History Tobacco Use [...] * Telephone Encounter - Jen Sanchez - 09/13/2013 0950 EDT Pt's sister calling to update Dr. Zaidi of pt being admitted. Please call. documented in this encounter Plan of Treatment Upcoming Encounters Date Type Department Care Team (Late st Contact Info) Description 09/09/2024 10:20 EST Office Visit [facility] Endocrinology - [address] [place] [address] Day Littlejohn MD PhD 62 [facility] [address] [place] [address] documented as of this encounter Visit Diagnoses Not on filedocumented in this encounter Care Teams Medical Front Desk Coordinator Relationship Specialty Start Date End Date Yossi Torres MD [address] [place] [phone] PCP - General 04/17/11 03/14/16 documented as of this encounter
--- OUTSIDE RECORDS SUMMARY | 2024-03-05 15:45 | XMS_ITS | Encounter Summary ---
Author Organization [facility] Address [address] [place] [address] Care Team Providers Care Superintendent Factory Name Role Phone Yossi Torres MD Primary Care Provider [phone] Reason for Visit * Reason Comments Labs Only Encounter Details Date Type Department Care Team (Latest Contact Info) Description 02/01/2014 10:45 EDT Procedure visit [facility] Endocrinology - [facility] [address] [place] [address] Wilder Zaidi, 62 [facility] [address] [place] [address] Phlebotomy, [facility] Central hypothyroidism Social History Tobacco Use Types Packs/Day Years Used Date Smoking Tobacco: Never Smokeless Tobacco: Never Alcohol Use Standard Drinks/Week Comments No 0 (1 standard drink = 0.6 oz pur e alcohol) Sex and Gender Information Value Date Recorded Sex Assigned at Not on file Gender Identity Not on file Sexual Orientation Not on file documented as of this encounter Discharge Diagnoses Diagnosis 244.9 HYPOTHYROIDISM NOS[ICD-9-CM] documented in this encounter Progress Notes * Vanessa Duran - 02/01/2014 1101 EDT Blood sample drawn from vein for testing at the order of Dr. Zaidi ???I was supervised by Dr. Zaidi who was in the suite and readily available.?? documented in this encounter Plan of Treatment Upcoming Encounters Date Type Department Care Team (Late st Contact Info) Description 09/09/2024 10:20 EST Office Visit [facility] Endocrinology - [facility] [address] [place] [address] Day Littlejohn MD PhD 62 [facility] [address] [place] [address] documented as of this encounter Procedures Procedure Name Priority Date/Time Associated Diagnosis Comments T4 FREE Routine 02/01/2014 10:50 EDT Central hypothyroidism documented in this encounter Results * T4 FREE (02/01/2014 10:50 EDT) Free T4 1.4 0.8 - 1.8 ng/dl [facility] Blood specimen (specimen) 02/01/2014 10:50 EDT 02/01/2014 15:54 EDT Wilder Erik Zaidi DO CHEMISTRY & BL OOD GAS ORDERABLES Performing Organization Address City/State/[facility] Co de Phone Number [facility] [address] [place] [address] documented in this encounter Visit Diagnoses Diagnosis Central hypothyroidism Unspecified hypothyroidism documented in this encounter Care Teams Superintendent Factory Relationship Specialty Start Date End Date Yossi Torres MD [address] [place] [address] [address] [place] [phone] PCP - General 04/17/11 03/14/16 documented as of this encounter
--- OUTSIDE RECORDS SUMMARY | 2024-03-05 15:45 | XMS_ITS | Encounter Summary ---
Author Organization [facility] Address [address] [place] [address] Care Team Providers Care Wage Analyst Name Role Phone Akil Serrano MD Primary Care Provider [phone] Encounter Details Date Type Department Care Team (Late st Contact Info) Description 01/25/2011 Results Only Imaging [facility] [phone] Yossi Torres MD [address] [place] [address] [address] [place] [phone] Social History Tobacco Use Types [...] Info) Description 09/09/2024 10:20 EST Office Visit [facility] Endocrinology - [facility] [address] [place] [address] Day Littlejohn MD PhD 62 [facility] [address] [place] [address] documented as of this encounter Procedures Procedure Name Priority Date/Time Associated Diagnosis Comments MR HEAD W/WO CONTRAST 02/25/2011 15:03 EDT documented in this encounter Results * MR HEAD W/WO CONTRAST (02/25/2011 15:03 EDT) Anatomical Region Laterality Modality Other 02/25/2011 15:0 3 EDT 02/25/2011 17:22 EDT Narrative 02/25/2011 17:22 EDT MR HEAD WWO/CONTRAST ??Feb 25, 2011 03:03:00 PM Signs and Symptoms/Comments: ??Panhypopituitarism. Technique: MR scan of the pituitary region is undertaken with sagittal T1, coronal T1, coronal T2, sagittal T1 postcontrast, coronal T1 postcontrast, and sagittal T2 postcontrast. Comparison: MR from May 13, 2008. Findings: There is artifact and postsurgical change in the region of the sella. No pituitary gland is definitely identified. The sella continues be enlarged as seen on the previous study. There is no area of enhancement to indicate recurrent tumor. Considerable high signal is seen in the right in the frontal region likely representing postsurgical gliosis. There is also tissue loss in this region with associated enlargement of the right frontal horn. On T2 scans there is high signal and enhancement in the sphenoid sinus which is consistent with sinusitis, acute or chronic. Clinical correlation to rule out acute sinusitis is recommended. Overall appearance is relatively unchanged from the 2007 study. Impression: 1. No positively identified pituitary gland. 2. No evidence of tumor recurrence. 3. Evidence of sinusitis in the sphenoid sinus, acute or chronic. Clinical correlation to rule out acute sinusitis is recommended I have personally reviewed the images and the above interpretation and agree with the findings. Procedure Note Shola Fuentes MD - 02/25/2011 MR HEAD WWO/CONTRAST Feb 25, 2011 03:03:00 PM Signs and Symptoms/Comments: Panhypopituitarism. Technique: MR scan of the pituitary region is undertaken with sagittal T1, coronal T1, coronal T2, sagittal T1 postcontrast, coronal T1 postcontrast, and sagittal T2 postcontrast. Comparison: MR from May 13, 2008. Findings: There is artifact and postsurgical change in the region of the sella. No pituitary gland is definitely identified. The sella continues be enlarged as seen on the previous study. There is no area of enhancement to indicate recurrent tumor. Considerable high signal is seen in the right in the frontal region likely representing postsurgical gliosis. There is also tissue loss in this region with associated enlargement of the right frontal horn. On T2 scans there is high signal and enhancement in the sphenoid sinus which is consistent with sinusitis, acute or chronic. Clinical correlation to rule out acute sinusitis is recommended. Overall appearance is relatively unchanged from the 2008 study. Impression: 1. No positively identified pituitary gland. 2. No evidence of tumor recurrence. 3. Evidence of sinusitis in the sphenoid sinus, acute or chronic. Clinical correlation to rule out acute sinusitis is recommended I have personally reviewed the images and the above interpretation and agree with the findings. Yossi Torres MD IMG MRI ORDERABLES documented in this encounter Visit Diagnoses Not on filedocumented in this encounter Care Teams Wage Analyst Relationship Specialty Start Date End Date Akil Serrano MD [address] [facility] [place] [address] PCP - General 02/21/10 04/16/11 documented as of this encounter
--- OUTSIDE RECORDS SUMMARY | 2024-03-05 15:45 | XMS_ITS | Encounter Summary ---
Author Organization [facility] Address [address] [place] [address] Care Team Providers Care Ux Lead Name Role Phone Yossi Torres MD Primary Care Provider [phone] Emilee Cody MD Primary Care Provider + Reason for Visit * Reason Onset Date Comments Returning Call 02/02/2014 to [place] Returning Call 02/02/2014 Encounter Details Date Type Department Care Team (Late st Contact Info) Description 02/01/2014 Telephone [facility] Endocrinology - [facility] [address] [place] [address] Wilder Zaidi, 62 [facility] [address] [place] [address] Returning Call (to [place]); Returning Call Social History Tobacco Use Types Packs/Day Years [...] encounter Miscellaneous Notes * Telephone Encounter - Ludmila Harris - 02/02/2014 1534 EDT Bettina is returning Georgia's call. * Telephone Encounter - Mady Cardenas - 02/02/2014 1302 EDT Bettina returning [place]'s call. Please call back. OK to leave results on VM if not reachable. * Telephone Encounter - [place] Rice, RN - 02/02/2014 1254 EDT Phone call to Miguel Angel's caregiver (left message to call back) Phone call to Miguel Angel 02/03/[address] Zaidi's message below. Verbalizes understanding with no barriers. * Telephone Encounter - Wilder Zaidi DO - 02/01/2014 2044 EDT Contact pt's caregivers. His Free T4 was normal. No change in levothyroxine dose. documented in this encounter Plan of Treatment Upcoming Encounters Date Type Department Care Team (Late st Contact Info) Description 09/09/2024 10:20 EST Office Visit [facility] Endocrinology - [address] [address] aDy Littlejohn MD PhD [address] [place] [address] [address] [place] [address] documented as of this encounter Visit Diagnoses Not on filedocumented in this encounter Care Teams Ux Lead Relationship Specialty Start Date End Date Yossi Torres MD [address] [place] [address] [address] [place] [phone] PCP - General 04/17/11 03/14/16 Emilee Cody MD [address] [place] [address] [address] [place] [phone] PCP - General 03/15/16 09/29/18 documented as of this encounter
--- OUTSIDE RECORDS SUMMARY | 2024-03-05 15:45 | XMS_ITS | Encounter Summary ---
Author Organization [facility] Address [address] [place] [address] Care Team Providers Care Water Tanker Driver Name Role Phone Yossi Torres MD Primary Care Provider [phone] Reason for Visit * Reason Onset Date Comments Other 09/06/2013 high sodium Encounter Details Date Type Department Care Team (Late st Contact Info) Description 09/06/2013 Telephone [facility] Endocrinology - [facility] [address] [place] [address] Wilder Zaidi, 62 [facility] [address] [place] [address] Other (high sodium ) Social History Tobacco Use Types Packs/Day [...] * Telephone Encounter - Ramon Lucero - 09/06/2013 5548 EST I spoke with Miguel Angel's sister Bettina. He was a little bit lethargic last night so they checked his serum sodium was 151. He has been taking the 0.05 mg DDAVP regularly twice daily. We reduced it from 3times daily to twice daily due to some hypo-may training in a few weeks ago. He is also still on a higher water intake per day than average. His current is 80 ounces per day instead of 60 ounces per day. Bettina tells me that he has barely urinated since last night or this morning. I suggested that we hold tight and take a watch and wait approach and have serum sodium checked tomorrow morning first thing. Although my inclination would be to increase his DDAVP back to 3 times daily given his hypernatremia right now, since he is not urinating right now I want to wait and not over reacts. They will continue on 80 ounces per day of water instead of 60 ounces. Bettina promises tocontact me tomorrow morning with a repeat serum sodium. * Telephone Encounter - Ludmila Harris - 09/06/2013 1250 EST Bettina states the pt is still having high sodium and would like to speak with DR Zaidi or Dr Lucero. documented in this encounter Plan of Treatment Upcoming Encounters Date Type Department Care Team (Late st Contact Info) Description 09/09/2024 10:20 EST Office Visit [facility] Endocrinology - [address] [address] Day Littlejohn MD PhD 62 [facility] [address] [place] [address] documented as of this encounter Visit Diagnoses Not on filedocumented in this encounter Care Teams Water Tanker Driver Relationship Specialty Start Date End Date Yossi Torres MD [address] [place] [address] [address] [place] [phone] PCP - General 04/17/11 03/14/16 documented as of this encounter
--- OUTSIDE RECORDS SUMMARY | 2024-03-05 15:45 | XMS_ITS | Encounter Summary ---
Author Organization [facility] Address [address] [place] [address] Care Team Providers Care Disk Grinder Name Role Phone Yossi Torres MD Primary Care Provider [phone] Reason for Visit * Reason Onset Date Comments Labs Only 09/13/2012 Encounter Details Date Type Department Care Team (Late st Contact Info) Description 09/13/2012 Telephone [facility] Endocrinology - [address] [address] Ramon Lucero MD [address] [place] [address], [address] [phone] Labs Only Social History Tobacco Use Types [...] Telephone Encounter - Wilder Zaidi DO - 09/14/2012 1009 EDT Spoke with Bettina this am. Repeat sodium 135 this am. Advised to resume previous dose with 60 oz fluid restriction. Investigate with new rn case manager regarding inadvertent free water intake. Call lateafternoon with update. * Telephone Encounter - Ramon Lucero - 09/13/2012 1941 EDT Bettina called because Miguel Angel's care takers called - he was walking a bit funny with poor balance andwas saying yes more than usual, and they sent a sodium and it was 123. He is currently taking 1 pill of ddAVP at night and 0.5 in the morning. He has 10 cc of water left in his prescription this evening. I recommended no more water tonight, and go down to 1/2 pill tonight and 1/4 pill tomorrow morning and recheck sodium tomorrow and report to Dr. Zaidi. Bettina says she'll take care of it. documented in this encounter Plan of Treatment Upcoming Encounters Date Type Department Care Team (Late st Contact Info) Description 09/09/2024 10:20 EST Office Visit [facility] Endocrinology - [address] [address] Day Littlejohn MD PhD [address] [place] [address] [address] [place] [address] documented as of this encounter Visit Diagnoses Not on filedocumented in this encounter Care Teams Disk Grinder Relationship Specialty Start Date End Date Yossi Torres MD [address] [place] [address] [address] [place] [phone] PCP - General 04/17/11 03/14/16 documented as of this encounter
--- OUTSIDE RECORDS SUMMARY | 2024-03-05 15:45 | XMS_ITS | Encounter Summary ---
Author Organization [facility] Address [address] [place] [address] Care Team Providers Care Mobile Service Rv Technician Name Role Phone Yossi Torres MD Primary Care Provider [phone] Reason for Visit * Reason Onset Date Comments Results 07/23/2011 Encounter Details Date Type Department Care Team (Late st Contact Info) Description 07/23/2011 Telephone [facility] Endocrinology - [facility] [address] [place] [address] Wilder Zaidi DO 62 [facility] [address] [place] [address] Results Social History Tobacco Use [...] Telephone Encounter - Wilder Zaidi DO - 07/23/2011 1553 EST Left message with Bettina (patient's sister) regarding most recent sodium level that was normal at 137. Continue current treatment. documented in this encounter Plan of Treatment Upcoming Encounters Date Type Department Care Team (Late st Contact Info) Description 09/09/2024 10:20 EST Office Visit [facility] Endocr[facility] - [facility] [address] [place], [place] [phone] Day Littlejohn MD PhD [address] [facility] [address] [place] [address] documented as of this encounter Visit Diagnoses Not on filedocumented in this encounter Care Teams Mobile Service Rv Technician Relationship Specialty Start Date End Date Yossi Torres MD [address] [place] [phone] PCP - General 04/17/11 03/14/16 documented as of this encounter
--- OUTSIDE RECORDS SUMMARY | 2024-03-05 15:45 | XMS_ITS | Encounter Summary ---
Author Organization [facility] Address [address] [place] [address] Care Team Providers Care Business Excellence Leader Name Role Phone Akil Serrano MD Primary Care Provider [phone] Encounter Details Date Type Department Care Team (Latest Contact Info) Description 03/19/2011 Orders Only [facility] Endocrinology - [address] [address] Tejal Carreno RN CDE 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HCC-CMS) (Primary Dx) Social History Tobacco Use [...] EST Office Visit [facility] Endocrinology - [address] [address] Day Littlejohn MD PhD 62 [facility] [address] [place] [address] documented as of this encounter Visit Diagnoses Diagnosis 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HCC-CMS)- Primary Panhypopituitarism documented in this encounter Care Teams Business Excellence Leader Relationship Specialty Start Date End Date Akil Serrano MD [address] [place] [address] PCP - General 02/21/10 04/16/11 documented as of this encounter
--- OUTSIDE RECORDS SUMMARY | 2024-03-05 15:45 | XMS_ITS | Encounter Summary ---
Author Organization [facility] Address [address] [place] [address] Care Team Providers Care Wheat Buyer Name Role Phone Yossi Torres MD Primary Care Provider [phone] Reason for Visit * Reason Onset Date Comments Medications Refill 02/08/2013 Encounter Details Date Type Department Care Team (Late st Contact Info) Description 02/08/2013 Refill [facility] Endocrinology - [facility] [address] [place] [address] Wilder Zaidi, 62 [facility] [address] [place] [address] Medications Refill Social History Tobacco [...] * Telephone Encounter - Karen Tellez - 02/09/2013 1107 EDT ariel was called in last week. * Telephone Encounter - AmadoBettina - 02/08/2013 1606 EDT Medication(s) Requested: [email or web address] Last Refill Date: 02/03/13 Last Visit Date: 11/04/11 Next Visit Date: Visit date not found Is patient out of medication? bobby Fischer 02/08/2013 16:06 documented in this encounter Plan of Treatment Upcoming Encounters Date Type Department Care Team (Late st Contact Info) Description 09/09/2024 10:20 EST Office Visit [facility] Endocrinology - [facility] [address] [place], [place] [phone] Day Littlejohn MD PhD [address] [facility] [address] [place] [phone] documented as of this encounter Visit Diagnoses Not on filedocumented in this encounter Care Teams Wheat Buyer Relationship Specialty Start Date End Date Yossi Torres MD [address] [place] [address] [address] [place] [phone] PCP - General 04/17/11 03/14/16 documented as of this encounter
--- OUTSIDE RECORDS SUMMARY | 2024-03-05 15:45 | XMS_ITS | Encounter Summary ---
Author Organization [facility] Address [address] [place] [address] Care Team Providers Care Performance Test Consultant Name Role Phone Yossi Torres MD Primary Care Provider [phone] Reason for Visit * Reason Onset Date Comments Other 01/06/2012 not urinating ye sterday Encounter Details Date Type Department Care Team (Late st Contact Info) Description 01/06/2012 Telephone [facility] Endocrinology - [facility] [address] [place] [address] Wilder Zaidi DO 62 [facility] [address] [place] [address] Other (not urinating yesterday) Social History Tobacco Use Types Packs/Day Years [...] * Telephone Encounter - Karen Tellez - 01/06/2012 1358 EDT Call to Bettina: please have Miguel Angel increase fluids by 10 oz daily in warm weather per Dr. Zaidi. Can call back with other issues. * Telephone Encounter - Wilder Zaidi DO - 01/06/2012 1344 EDT Given warm weather they can increase fluid intake by 10 oz safely. Re-cehck sodium if clinical changes. * Telephone Encounter - Belgica Camara V. - 01/06/2012 1115 EDT Patient sodium is [address] Zaidi want to adjust meds? A bit of loose stools today and yesterday documented in this encounter Plan of Treatment Upcoming Encounters Date Type Department Care Team (Late st Contact Info) Description 09/09/2024 10:20 EST Office Visit [facility] Endocrinology - [address] [address] Day Littlejohn MD PhD [address] [place] [address] [address] [place] [address] documented as of this encounter Visit Diagnoses Not on filedocumented in this encounter Care Teams Performance Test Consultant Relationship Specialty Start Date End Date Yossi Torres MD [address] [place] [address] [address] [place] [phone] PCP - General 04/17/11 03/14/16 documented as of this encounter
--- OUTSIDE RECORDS SUMMARY | 2024-03-05 15:45 | XMS_ITS | Encounter Summary ---
Author Organization [facility] Address [address] [place] [address] Care Team Providers Care Commissioning Engineer Name Role Phone Yossi Torres MD Primary Care Provider [phone] Reason for Visit * Reason Comments Follow-up Panhypopituitarism,d iabetes insipidus,hypogonadism Encounter Details Date Type Department Care Team (Latest Contact Info) Description 11/04/2011 13:40 EDT Office Visit [facility] Endocrinology - [facility] [address] [place] [address] Wilder Zaidi, 62 [facility] [address] [place] [address] 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HCC-CMS) (Primary Dx) Social History Tobacco [...] Sign Reading Time Taken Comments Blood Pressure 104/68 11/04/2011 1334 EDT Pulse 68 11/04/2011 1334 EDT Temperature - - Respiratory Rate - - Oxygen Saturation - - Inhaled Oxygen Concentration - - Weight 79.7 kg (175 lb 11.2 oz) 11/04/2011 1334 EDT Height 170.2 cm (5' 7) 11/04/2011 1334 EDT Body Mass Index 27.52 11/04/2011 1334 EDT documented in this encounter Patient Instructions * Patient Instructions* Wilder Zaidi DO - 11/04/2011 14:07 EDT 1. Obtain Free T4 with next blood draw documented in this encounter Progress Notes * Wilder Zaidi, - 11/04/2011 1408 EDT SUBJECTIVE: Mr Miguel Angel Burgos is a pleasant 20-year-old male who returns to clinic today for 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 Miguel Angel is accompanied today by his sister Bettina and his code clerk from [facility] as well as both of his caretakers. I am happy to report that Miguel Angel is doing quite well. Most recent sodium was drawn on Friday was normal at 148. Upon interview today, the caretakers state that his mood has been stable. No real behavioral issues. He is currently attending the day program and doing well. He stopped his Provigil and still is able to complete the day without significant fatigue. They note some increase in urination in thelate afternoon, early evening prior to his evening dose, which can sometimes be clear but otherwisefeel that his polyuria is stable. He is still taking 0.1 mg of DDAVP in the morning and 0.05 mg in the evening time. He has a fluid restriction of 80 ounces of free water per day and he has his sodium checked on a monthly basis with reports to both Dr Torres and myself. With regards to his secondary hypothyroidism, they report his mood is stable. No significant changes in his bowels. No changes in his hair, skin or nails. He reports longstanding cold intolerance, which is unchanged. He takes his levothyroxine first thing in the morning on an empty stomach and doesnot miss any doses. With regards to his secondary adrenal insufficiency, his weight has remained stable. Appetite is also stable. No abdominal striae or increase in urination. Denies fatigue or increased sleepiness. No lethargy, particularly in the morning, currently takes 20 mg of hydrocortisone in the morning, 10 mgin the afternoon and 10 mg in the evening. No real difficulty sleeping. Denies nausea, vomiting. They have not had to stress dose since I saw him last in April but are able to articulate how and when to increase his Miguel Angel's steroids in the setting of acute illness. PAST MEDICAL HISTORY: Reviewed as documented in electronic medical record. MEDICATIONS: Reviewed as documented in electronic medical record. ALLERGIES: Reviewed as documented in electronic medical record. OBJECTIVE: Blood pressure is 104/68 with pulse of 68, weight is 175 pounds, giving him a BMI of 27.5. He has lost approximately 10 pounds from when I saw him back in April, but he was up 8 pounds at that visit so he is stable in the last year. In general, patient is a 20-year-old male who is nonverbal but is able to communicate with yes and no gestures and some noises. He appears in no acute distress today. HEENT: Eyes: No lid lag or periorbital edema noted. Extraocular muscles are intact. Sclerae are anicteric. Mouth: Mucous membranes moist and pink in color. No oral lesions seen. Dentition is in good repair. Neck is supple without adenopathy. No JVD or carotid bruits appreciated. Thyroid sits low in the neck, is without tenderness or nodules to palpation. Respiratory: Lungs are clear to auscultation bilaterally. Cardiovascular: Heart is regular without murmurs, rubs, or gallops. GI:Abdomen is soft, nontender, nondistended, good bowel sounds in all 4 quadrants. Extremities: No clubbing, cyanosis or edema. Strength is 5/5 and equal bilaterally without proximal muscle weakness. Neuro: DTRs are +2/4 and equal bilaterally in all 4 extremities, but difficult to elicit in his upper extremities due to patient cooperation but appear normal. Psych: The patient is nonverbal but seems appropriate, according to his instrument lens inspector and sister. He was able to sit through the lengthy visit today without any problems. DIAGNOSTIC DATA: Most recent sodium that I have available to review today was from 09/18/2011 and was normal at 140. Most recent free T4 was in July of 2010, which was 1.47. ASSESSMENT: Mr. 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 He currently lives with his caretakers. He is accompanied today by his instrument lens inspector from [facility] as well as his sister Bettina. A. 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 Miguel Angel appears to be clinically euvolemic today. DDAVP dosing is stable and should remain at the current dose of a full tablet at 0.1 mg in the morning and half tablet in the evening time. Typically, patients need somewhere between 0.1 and 0.8 units of DDAVP to maintain a normal sodium urine valve that is tolerable both to the patient andto his caregivers. We reviewed the signs and symptoms of hyponatremia today with the instrument lens inspector and patient's sister, although the subtle signs would be difficult to tell in Miguel Angel. If he becomes lethargic, have nausea, vomiting, complaint of headaches, etc., they should contact my office immediately. We will continue his current dose of 80 ounces of fluid restriction per day, recheck a sodium in 1month, call the patient provider with that value once it returns. B. Secondary hypothyroidism. Appears clinically euthyroid. Will obtain a free T4 today. Continue oncurrent dose and make sure he takes it first thing in the morning on an empty stomach and we will make any adjustments based on laboratory data. C. Secondary adrenal insufficiency. The patient continues to remain on a relatively high-dose of hydrocortisone at a total of 40 mg daily. His weight has been stable. He appears to have good energy levels. No nausea, vomiting. Does not seem to have any a.m. symptoms, which is good. He wears a medical alert bracelet. He has injectable hydrocortisone at home. The caretakers were able to articulate when and how to use the injectable medication when and how to stress dose his oral steroid medications. He has not had to stress dose since I saw him back in April. The patient has received a flu shot and Pneumovax vaccination as recommended. D. Secondary hypogonadism. Switched to AndroGel, doing well. Continue current dose. E. Growth hormone deficiency. Miguel Angel's sister has not been interested in pursuing adult growth hormone replacement, which I agree with. It was not discussed at length today, but we will revisit on a yearly basis. PLAN: 1. Continue current dose of DDAVP. 1. Continue current dose of levothyroxine. We will check free T4 to confirm the dose is appropriate. 2. Continue current dose of hydrocortisone. 3. Stress dose as needed. 4. Continue monthly checks of sodium. 5. Continue current water restriction. 6. Call with questions or concerns. 7. We will see him back in 6 months. documented in this encounter Plan of Treatment Upcoming Encounters Date Type Department Care Team (Late st Contact Info) Description 09/09/2024 10:20 EST Office Visit [facility] Endocrinology - [address] [address] Day Littlejohn MD PhD 62 [facility] [address] [place] [phone] documented as of this encounter Visit Diagnoses Diagnosis 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HCC-CMS)- Primary Panhypopituitarism documented in this encounter Care Teams Commissioning Engineer Relationship Specialty Start Date End Date Yossi Torres MD [address] [place] [phone] PCP - General 04/17/11 03/14/16 documented as of this encounter
--- OUTSIDE RECORDS SUMMARY | 2024-03-05 15:45 | XMS_ITS | Encounter Summary ---
Author Organization [facility] Address [address] [place] [address] Care Team Providers Care Rn Integrity Name Role Phone Akil Serrano MD Primary Care Provider [phone] Reason for Visit * Reason Onset Date Comments Appointment Related 04/12/2011 Encounter Details Date Type Department Care Team (Late st Contact Info) Description 04/12/2011 Telephone [facility] Endocrinology - [facility] [address] [place] [address] Wilder Zaidi DO 62 [facility] [address] [place] [address] Appointment Related Social History Tobacco [...] Telephone Encounter - Wilder Zaidi DO - 04/15/2011 1129 EDT I am gone this Friday and . Can we get him in next week? * Telephone Encounter - Wilder Zaidi DO - 04/15/2011 1105 EDT Please contact Miguel Angel's PCP Dr. Torres to obtain contact information to schedule appointment SHEEBA. * Telephone Encounter - Wilder Zaidi DO - 04/12/2011 1530 EDT Please contact Miguel Angel's caretakers (he is non-verbal) and arrange for follow-up appointment SHEEBA. documented in this encounter Plan of Treatment Upcoming Encounters Date Type Department Care Team (Late st Contact Info) Description 09/09/2024 10:20 EST Office Visit [facility] Endocrinology - [address] [address] Day Littlejohn MD PhD [address] [place] [address] [place] [phone] documented as of this encounter Visit Diagnoses Not on filedocumented in this encounter Care Teams Rn Integrity Relationship Specialty Start Date End Date Akil Serrano MD [address] [facility] [place] [address] PCP - General 02/21/10 04/16/11 documented as of this encounter
--- OUTSIDE RECORDS SUMMARY | 2024-03-05 15:45 | XMS_ITS | Encounter Summary ---
Author Organization [facility] Address [address] [place] [address] Care Team Providers Care Concrete Engineer Name Role Phone Yossi Torres MD Primary Care Provider [phone] Reason for Visit * Reason Comments Other Encounter Details Date Type Department Care Team (Late st Contact Info) Description 01/12/2013 Refill [facility] Endocrinology - [address] [address] Wilder Zaidi, 62 [facility] [address] [place] [address] Other Social History Tobacco Use [...] MORNING AND ONE HALF TABLET AT BEDTIME 45 Tab 0 01/12/2013 02/02/2013 documented in this encounter Plan of Treatment Upcoming Encounters Date Type Department Care Team (Late st Contact Info) Description 09/09/2024 10:20 EST Office Visit [facility] Endocrinology [address] [phone] Day Littlejohn MD PhD [address] [place] [address] [address] [place] [address] documented as of this encounter Visit Diagnoses Not on filedocumented in this encounter Discontinued Medications Medication Sig Discontinue Reason Start Date End Da te desmopressin (DDAVP) 0.1 mg tablet TAKE ONE TABLET BY MOUTH EVERY MORNING AND 1/2 TABLET AT BEDTIME Reorder 04/16/2012 01/12/2013 documented as of this encounter Care Teams Concrete Engineer Relationship Specialty Start Date End Date Yossi Torres MD [address] [place] [address] DR BUITR[address]O [address] [place] [phone] PCP - General 04/17/11 03/14/16 documented as of this encounter
--- OUTSIDE RECORDS SUMMARY | 2024-03-05 15:45 | XMS_ITS | Encounter Summary ---
Author Organization [facility] Address [address] [place] [address] Care Team Providers Care Layaway Clerk Name Role Phone Akil Serrano MD Primary Care Provider [phone] Reason for Visit * Reason Onset Date Comments Other 11/21/2010 Encounter Details Date Type Department Care Team (Late st Contact Info) Description 11/21/2010 Telephone [facility] Endocrinology [facility] [address] [place] [address] Wilder Zaidi, DO 62 [facility] [address] [place] [address] Other Social History Tobacco Use [...] * Telephone Encounter - Georgia Condon - 11/21/2010 1100 EDT Sodium level at 151, should fluid be adjusted? documented in this encounter Plan of Treatment Upcoming Encounters Date Type Department Care Team (Late st Contact Info) Description 09/09/2024 10:20 EST Office Visit [facility] Endocrinology [address] [id number] Day Littlejohn MD PhD 62 [facility] [address] [place] [address] documented as of this encounter Visit Diagnoses Not on filedocumented in this encounter Care Teams Layaway Clerk Relationship Specialty Start Date End Date Akil Serrano MD [address] [facility] [address] [place] [address] PCP - General 02/21/10 04/16/11 documented as of this encounter
--- OUTSIDE RECORDS SUMMARY | 2024-03-05 15:45 | XMS_ITS | Encounter Summary ---
Author Organization [facility] Address [address] [place] [address] Care Team Providers Care Shipping Order Clerk Name Role Phone Yossi Torres MD Primary Care Provider [phone] Encounter Details Date Type Department Care Team (Latest Contact Info) Description 07/29/2013 Orders Only [facility] Endocrinology - [address] [address] Tejal Carreno RN CDE Panhypopituitarism [...] Info) Description 09/09/2024 10:20 EST Office Visit [facility] Endocrinology - [address] [address] Day Littlejohn MD PhD [address] [place] [address] [address] [place] [address] documented as of this encounter Visit Diagnoses Diagnosis 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HCC-CMS)- Primary Panhypopituitarism documented in this encounter Care Teams Shipping Order Clerk Relationship Specialty Start Date End Date Yossi Torres MD [address] [place] [address] [address] [place] [phone] PCP - General 04/17/11 03/14/16 documented as of this encounter
--- OUTSIDE RECORDS SUMMARY | 2024-03-05 15:45 | XMS_ITS | Encounter Summary ---
Author Organization [facility] Address [address] [place] [address] Care Team Providers Care Scooper Name Role Phone Yossi Torres MD Primary Care Provider [phone] Reason for Visit * Reason Onset Date Comments Follow-up 09/01/2013 Encounter Details Date Type Department Care Team (Late st Contact Info) Description 09/01/2013 Telephone [facility] Endocrinology - [facility] [address] [place] [address] Wilder Zaidi DO 62 [facility] [address] [place] [address] Follow-up Social History Tobacco Use [...] tablet Take 1 Tab by mouth daily. 90 Tab 3 09/01/2013 08/25/2014 documented in this encounter Miscellaneous Notes * Addendum Note - Lili Driscoll RN - 09/01/2013 1343 ESTAddended by: LILI DRISCOLL on: 09/01/2013 13:43 Modules accepted: Orders * Telephone Encounter - Lili Driscoll RN - 09/01/2013 1306 EST I called the patients sister, bettina back. She is going to increase his fluid intake from 60cc to 80cc. She will adjust the levothyroxine to 150mcg daily as directed. He is actually taking ddavp at areduced dose of 50mcg bid because his sodium was low in July and he was hospitalized. She will retest his na on Friday to see if the fluids help. She verbalized understanding of the plan and need for daily wts, medication changes and recheck. * Telephone Encounter - Day Littlejohn MD - 09/01/2013 1232 EST Reviewed chart and discussed with Dr. Paul and Dr. Ltitlejohn TSH is not accurate and is not drawn in patients with panhypopit. The LT4 dosing is based on the FT4 values or free thyroxine index instead. Please drop LT4 dose to 150 mcg/d. Get FT4 again in 6-8 wks. 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 Notesays 60 cc in the wintertime and could then go to 80 cc. Also increase DDAVP to 100 mcg twice a day. Na should be recheck next week and then every wk for 4 wks. Needs to be weighed daily and call if more than 5 lb change. Na goal is OK for 130-145 (With DDAVP expect some fluid retention). Dr. 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 Hissurgery was complicated by intracranial bleed that left him with bilateral thalamic infarct significant neurologic impairment and near total visual impairment. On 07/26/13 his sodium was normal at 137. Blood count is normal. Thyroid tests were abnormal and he reduced levothyroxine to 175 mcg daily and repeat Free T4 and Free T3 in 6 weeks. He had labs done yesterday by pcp and his sodium was 150. His thyroid function was out of range as well. I called [facility] to have the results faxed to us. Free T4 2.36 (0.78-2.19) Sodium 150 (137-145) previus on 08/20/13=140 He is taking the DDAVP, as well as the hydrocortisone and the levothyroxine . He has not been feeling unwell, no vomiting, diarrhea or other problems, however he is losing weight rapidly, he was 173lbs 2 weeks ago and yesterday at pcp he wieghed 163lbs. He is sleeping ok, but has been a little off balance and falling. The pcp felt he might have a plugged ear and started on ear gtts. Bettina is wondering what should be done about the abnormal sodium and FT4, no TSH was drawn according to the faxed results. * Telephone Encounter - Tracy Nunez - 09/01/2013 1049 EST Bettina calling stating they usually page dr. Zaidi directly when they need him but since he is onvacation asking for the home restoration service cleaner provider, I relayed to Bettina that the nurse will give this messageto the covering Bettina PANG states concerns are w/ his high sodium of 150 and sees yuly for Primary central diabetes insipidus, Bettina disconnected call abruptly documented in this encounter Plan of Treatment Upcoming Encounters Date Type Department Care Team (Late st Contact Info) Description 09/09/2024 10:20 EST Office Visit [facility] Endocrinology - [address] [address] Day Littlejohn MD PhD [address] [place] [address] [address] [place] [address] documented as of this encounter Visit Diagnoses Not on filedocumented in this encounter Discontinued Medications Medication Sig Discontinue Reason Start Date End Da te levothyroxine (SYNTHROID) 175 mcg tablet Take 1 Tab by mouth daily. Reorder 07/29/2013 09/01/2013 documented as of this encounter Care Teams Scooper Relationship Specialty Start Date End Date Yossi Torres MD [address] [place] [address] [address] [place] [phone] PCP - General 04/17/11 03/14/16 documented as of this encounter
--- OUTSIDE RECORDS SUMMARY | 2024-03-05 15:45 | XMS_ITS | Encounter Summary ---
Author Organization [facility] Address [address] [place] [address] Care Team Providers Care Security Guard Supervisor Name Role Phone Yossi Torres MD Primary Care Provider [phone] Reason for Visit * Reason Onset Date Comments Results 07/29/2013 Encounter Details Date Type Department Care Team (Late st Contact Info) Description 07/29/2013 Telephone [facility] Endocrinology - [facility] [address] [place] [address] Wilder Zaidi, 62 [facility] [address] [place] [address] Results Social History Tobacco Use [...] Tab by mouth daily. 90 Tab 3 07/29/2013 09/01/2013 documented in this encounter Miscellaneous Notes * Telephone Encounter - Tejal Carreno RN - 07/29/2013 1032 EST Bettina called back and i informed her that Dr Zaidi is decreasing lt4 and i am sending her lab reqs for recheck in 6 weeks, also confirms ddavp as 1/2 tab tid, last script had different instructions. She requests that i send her discharge summary so that she can provide this for nurse. Pt verbalized understanding. * Telephone Encounter - Tejal Carreno RN - 07/29/2013 1005 EST Left nondetailed voice message to call clinic * Telephone Encounter - Wilder Zaidi DO - 07/29/2013 0930 EST Please contact patient's sister Bettina and caretakers via phone. I have reviewed the patient's mostrecent laboratory results from [facility] dated 07/26/13. Advise that sodium is normal at 137. Blood countis normal. Thyroid tests should too much thyroid hormone in the blood stream. Lets reduce levothyroxine to 175 mcg daily and repeat Free T4 and Free T3 in 6 weeks. documented in this encounter Plan of Treatment Upcoming Encounters Date Type Department Care Team (Late st Contact Info) Description 09/09/2024 10:20 EST Office Visit [facility] Endocrinology - [address] [address] Day Littlejohn MD PhD [address] [place] [address] [address] [place] [address] documented as of this encounter Visit Diagnoses Not on filedocumented in this encounter Discontinued Medications Medication Sig Discontinue Reason Start Date End Da te levothyroxine (SYNTHROID) 200 mcg tabletIndications:Gonadotro pin deficiency (HCC-CMS),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HCC-CMS),Panhypopituitaris m (HCC-CMS),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HCC-CMS),Secondary hypothyroidism Take 1 Tab by mouth daily. Dose adjustment 07/26/2013 07/29/2013 documented as of this encounter Care Teams Security Guard Supervisor Relationship Specialty Start Date End Date Yossi Torres MD [address] [place] [address] [address] [place] [phone] PCP - General 04/17/11 03/14/16 documented as of this encounter
--- OUTSIDE RECORDS SUMMARY | 2024-03-05 15:46 | XMS_ITS | Encounter Summary ---
Author Organization [facility] Address [address] [place] [address] Care Team Providers Care Poultry Farm Supervisor Name Role Phone Yan Demarco MD Primary Care Provider [phone] Encounter Details Date Type Department Care Team (Late st Contact Info) Description 10/04/2009 12:00 EDT - 10/04/2009 23:59 EDT Hospital Encounter [facility] [address] [place] [address] Skyler Edwards [facility] [address] [place] [phone] Discharge Disposition: Home or Self Care Social History Tobacco Use Types Packs/Day Years Used Date Smoking Tobacco: Never Assessed Sex and Gender Information Value Date Recorded Sex Assigned at Not on file Gender Identity Not on file Sexual Orientation Not on file documented as of this encounter Discharge Disposition Disposition Code Departure Means Destination Home or Self Halfway documented in this encounter Plan of Treatment Upcoming Encounters Date Type Department Care Team (Late st Contact Info) Description 09/09/2024 10:20 EST Office Visit [facility] Endocrinology - [facility] [address] [place] [address] Day Littlejohn MD PhD 62 [facility] [address] [place] [address] documented as of this encounter Procedures Procedure Name Priority Date/Time Associated Diagnosis Comments T4 FREE Routine 10/04/2009 12:42 EDT SODIUM Routine 10/04/2009 12:42 EDT documented in this encounter Results * SODIUM (10/04/2009 12:42 EDT) Sodium 140 136 - 145 mEq/L [facility] Blood specimen (specimen) 10/04/2009 12:42 EDT 10/04/2009 12:43 EDT Skyler Hernadezjessa [facility] CHEMIS TRY & BLOOD GAS ORDERABLES Performing Organization Address [facility] de Phone Number [facility] [address] [place] [address] * T4 FREE (10/04/2009 12:42 EDT) Free T4 1.4 0.8 - 1.8 ng/dL [facility] Blood specimen (specimen) 10/04/2009 12:42 EDT 10/04/2009 12:43 EDT Skyler Hernadezmelvasantos [facility] CHEMIS TRY & BLOOD GAS ORDERABLES Performing Organization Address [facility] de Phone Number [facility] [address] [place] [address] documented in this encounter Visit Diagnoses Not on filedocumented in this encounter Care Teams Poultry Farm Supervisor Relationship Specialty Start Date End Date Yan Demarco MD [address] [place] [address] PCP - General 08/22/09 02/20/10 documented as of this encounter
--- OUTSIDE RECORDS SUMMARY | 2024-03-05 15:46 | XMS_ITS | Encounter Summary ---
Author Organization [facility] Address [address] [place] [address] Care Team Providers Care Sales Correspondence Clerk Name Role Phone Corin Skinner MD Primary Care Provider [phone] Encounter Details Date Type Department Care Team (Latest Contact Info) Description 12/28/2008 9:53 EDT - 12/28/2008 23:59 EDT Hospital Encounter [facility] [address] [place] [address] Jacqueline Early MD [facility] [address] [address] Discharge Disposition: Home or Self Care Social History Tobacco Use Types Packs/Day Years Used Date Smoking Tobacco: Never Assessed Sex and Gender Information Value Date Recorded Sex Assigned at Not on file Gender Identity Not on file Sexual Orientation Not on file documented as of this encounter Discharge Disposition Disposition Code Departure Means Destination Home or Self Custodial documented in this encounter Plan of Treatment Upcoming Encounters Date Type Department Care Team (Late st Contact Info) Description 09/09/2024 10:20 EST Office Visit [facility] Endocrinology - [facility] [address] [place] [address] Day Littlejohn MD PhD [address] [facility] [address] [place] [address] documented as of this encounter Procedures Procedure Name Priority Date/Time Associated Diagnosis Comments URINALYSIS WITH MICROSCOPIC IF POSITIVE Routine 12/28/2008 11:03 EDT TESTS ADDED BY PHONE Routine 12/28/2008 10:01 EDT BILIRUBIN DIRECT/INDIRECT Routine 12/28/2008 10:01 EDT GLUCOSE, SERUM Routine 12/28/2008 10:01 EDT CORTISOL Routine 12/28/2008 10:01 EDT COMPREHENSIVE METABOLIC PANEL (CMP) Routine 12/28/2008 10:01 EDT ELECTROLYTES Routine 12/28/2008 10:01 EDT documented in this encounter Results * (ABNORMAL) URINALYSIS, CHEMICAL (12/28/2008 11:03 EDT) Color, UA Unable to obtain specimen PER FATHER [facility] Clarity, UA Unable to obtain specimen PER FATHER [facility] Glucose, UA Unable to obtain specimen(A) NEG [facility] Comment:PER FATHER Bilirubin, UA Unable to obtain specimen(A) NEG [facility] Comment:PER FATHER Ketones, UA Unable to obtain specimen(A) NEG [facility] Comment:PER FATHER Specific [place], Urine Unable to obtain specimen 1.005 - 1.02 [facility] Comment:PER FATHER Blood, UA Unable to obtain specimen(A) NEG [facility] Comment:PER FATHER pH, UA Unable to obtain specimen 5.0 - 9.0 [facility] Comment:PER FATHER Protein, UA Unable to obtain specimen(A) NEG [facility] Comment:PER FATHER Urobilinogen, UA Unable to obtain specimen 0.2 - 1.0 mg/dL [facility] Comment:PER FATHER Nitrite, UA Unable to obtain specimen(A) NEG [facility] Comment:PER FATHER Leuk Esterase Unable to obtain specimen(A) NEG [facility] Comment:PER FATHER Urine specimen (specimen) 12/28/2008 11:03 EDT 12/28/2008 11:04 EDT Jacqueline Early MD URINALYSIS ORDERABLE S Performing Organization Address [facility] Co de Phone Number [facility] [address] [place] [address] * DIRECT BILIRUBIN (12/28/2008 10:01 EDT) Pathologist [facility] Conjugated Bilirubin 0.0 0.0 - 0.3 mg/dl [facility] Unconjugated Bilirubin 0.3 0.1 - 1.1 mg/dl [facility] 12/28/2008 10:0 1 EDT 12/28/2008 10:22 EDT Jacqueline Early MD CHEMISTRY & BLOOD GA S ORDERABLES Performing Organization Address [facility] Co de Phone Number [facility] [address] [place] [address] * (ABNORMAL) COMPREHENSIVE METABOLIC PANEL (12/28/2008 10:01 EDT) Pathologist [facility] Potassium 4.4 3.5 - 5.0 mEq/L [facility] Sodium 137 136 - 145 mEq/L [facility] Chloride 101 96 - 110 mEq/L [facility] CO2 26 24 - 32 mEq/L [facility] Alkaline Phosphatase 106 38 - 126 U/L [facility] Bilirubin, Total <0.5 0.2 - 1.3 mg/dl [facility] AST 18 15 - 46 U/L [facility] ALT 30 21 - 72 U/L [facility] Albumin 4.6 3.4 - 4.9 g/dl [facility] Total Protein 7.4 6.5 - 8.3 g/dl [facility] Creatinine 0.69(L) 0.7 - 1.5 mg/dl [facility] GFR, Calculated >60 ml/min/1.7 3m2 [facility] BUN 13 10 - 26 mg/dl [facility] Calcium 9.6 8.5 - 10.5 mg/dl [facility] Calculated Calcium 9.4 8.5 - 10.5 mg/dl [facility] Glucose, Serum 49(LL) 70 - 100 mg/dl [facility] Comment:Sample retested, res ult confirmed Fasting? Unknown [facility] 12/28/2008 10:0 1 EDT 12/28/2008 10:22 EDT Jacqueline Early MD CHEMISTRY & BLOOD GA S ORDERABLES Performing Organization Address [facility] de Phone Number [facility] [address] [place] [address] * TESTS ADDED BY PHONE (12/28/2008 10:01 EDT) Tests to be added CMP,DBIL [facility] Diagnosis Code SAME [facility] Who Called [facility] Location Code [facility] Read Back/Confirmed ? YES [facility] 12/28/2008 10:0 1 EDT 12/28/2008 10:22 EDT Jacqueline Early MD CHEMISTRY & BLOOD GA S ORDERABLES Performing Organization Address [facility] de Phone Number [facility] [address] [place] [address] * CORTISOL (12/28/2008 10:01 EDT) Cortisol 18 ug/dl [facility] Comment: 7-9a.m.=4.3-22.4 3-5p.m.=3.1-16.7 Blood specimen (specimen) 12/28/2008 10:01 EDT 12/28/2008 10:22 EDT Jacqueline Early MD CHEMISTRY & BLOOD GA S ORDERABLES Performing Organization Address [facility] de Phone Number [facility] [address] [place] [address] * ELECTROLYTES (12/28/2008 10:01 EDT) Sodium 137 136 - 145 mEq/L [facility] Potassium 4.4 3.5 - 5.0 mEq/L [facility] Chloride 101 96 - 110 mEq/L [facility] CO2 26 24 - 32 mEq/L [facility] Blood specimen (specimen) 12/28/2008 10:01 EDT 12/28/2008 10:22 EDT Jacqueline Early MD CHEMISTRY & BLOOD GA S ORDERABLES Performing Organization Address [facility] Co de Phone Number [facility] [address] [place] [address] * (ABNORMAL) GLUCOSE, SERUM (12/28/2008 10:01 EDT) Glucose, Serum 49(LL) 70 - 100 mg/dl [facility] Comment:Sample retested, res ult confirmed Blood specimen (specimen) 12/28/2008 10:01 EDT 12/28/2008 10:22 EDT Jacqueline Early MD CHEMISTRY & BLOOD GA S ORDERABLES Performing Organization Address [facility] de Phone Number [facility] [address] [place] [address] documented in this encounter Visit Diagnoses Not on filedocumented in this encounter Care Teams Sales Correspondence Clerk Relationship Specialty Start Date End Date Corin Skinner MD [address] [place] [phone] PCP - General 10/24/08 08/21/09 documented as of this encounter
--- OUTSIDE RECORDS SUMMARY | 2024-03-05 15:46 | XMS_ITS | Encounter Summary ---
Author Organization [facility] Address [address] [place] [address] Care Team Providers Care Briquette Operator Name Role Phone Akil Serrano MD Primary Care Provider Encounter Details Date Type Department Care Team (Late st Contact Info) Description 04/10/2010 Results Only [facility] [phone] Akil Serrano MD [address] [facility] [place], [place] [id number] Social History Tobacco Use Types Packs/Day Years [...] [facility] - [facility] [address] [place], [place] [phone] Day Littlejohn MD PhD [address] [facility] [address] [place] [address] documented as of this encounter Visit Diagnoses Not on filedocumented in this encounter Care Teams Briquette Operator Relationship Specialty Start Date End Date Akil Serrano MD [address] [place], [place] [phone] PCP - General 02/21/10 04/16/11 documented as of this encounter
--- OUTSIDE RECORDS SUMMARY | 2024-03-05 15:46 | XMS_ITS | Encounter Summary ---
Author Organization [facility] Address [address] [place] [address] Care Team Providers Care Reservation Agent Name Role Phone Akil Serrano MD Primary Care Provider [phone] Reason for Visit * Reason Onset Date Comments Diabetes 07/13/[address] Trena Zaidi know ta patient's sodium level checked today at [facility], at 139. Encounter Details Date Type Department Care Team (Late st Contact Info) Description 07/13/2010 Telephone [facility] Endocrinology - [facility] [address] [place] [address] Wilder Zaidi, 62 [facility] [address] [place] [address] Diabetes (Called to let Dr. Zaidi know luciano patient's sodium level checked today at [facility], at 139. ) Social History Tobacco Use Types Packs/Day [...] * Telephone Encounter - Georgia Condon - 01/30/2011 1241 EDT close documented in this encounter Plan of Treatment Upcoming Encounters Date Type Department Care Team (Late st Contact Info) Description 09/09/2024 10:20 EST Office Visit [facility] Endocrinology - [facility] [address] [place] [address] Day Littlejohn MD PhD 62 [facility] [address] [place] [address] documented as of this encounter Visit Diagnoses Not on filedocumented in this encounter Care Teams Reservation Agent Relationship Specialty Start Date End Date Akil Serrano MD 74 [facility] [address] [employer] [employer] [place], [place] [id number] PCP - General 02/21/10 04/16/11 documented as of this encounter
--- OUTSIDE RECORDS SUMMARY | 2024-03-05 15:46 | XMS_ITS | Encounter Summary ---
Author Organization [facility] Address [address] [place] [address] Care Team Providers Care Extruder Name Role Phone Akil Serrano MD Primary Care Provider [phone] Reason for Visit * Reason Onset Date Comments Medication Problem 07/10/2010 REQUESTING CA LL BACK TO DISCUSS PT'S MEDICATION. REQUESTING CALL BACK FROM THE Encounter Details Date Type Department Care Team (Late st Contact Info) Description 07/10/2010 Refill [facility] Endocrinology - [address] [address] Wilder Zaidi DO 62 [facility] [address] [place] [address] Medication Problem (REQUESTING CALL BACK TO DISCUSS PT'S MEDICATION. REQUESTING CALL BACK FROM THE ) Social History Tobacco Use Types Packs/Day [...] Telephone Encounter - Wilder Zaidi DO - 07/10/2010 1544 EST Spoke with Bettina Michelle's sister. She states that Miguel Angel's urine was clear for the first 2 days after switching to oral DDAVP, but she did not report polyuria. She states he would urinate 6-8 times migdalia day which was normal him. On Friday she noticed a decrease in urination to approximately 5 times per day and slight darkening of his urine. Miguel Angel's well cleaner Marta noticed a continued decrease in urination to 3 times per day and dark beer colored urine Sunday 07/09 and Monday 07/10. Patient had sodium level drawn on 07/09/10 at [facility] ER after being told to go to ER by on-call endocrine fellow. Patient had had repeat sodium level drawn earlier that day. Results were similar at 151. At this point patient's symptoms are not consistent with too little DDAVP as he has dark urine and decreased urneoutput and me need more free water. I do not think an increased dose of DDAVP is warranted at this time. Advised Bettina to speak with Marta (Miguel Angel's well cleaner) and reduce DDAVP to 0.1 mg tablet one half tab BID and to increase fluid to 60 oz per day. Miguel Angel will have a repeat sodium level in the am Friday07/11/10. I have faxed the orders to [facility]. I advised Bettina to have Miguel Angel taken to ED if hiscondition were to change. documented in this encounter Plan of Treatment Upcoming Encounters Date Type Department Care Team (Late st Contact Info) Description 09/09/2024 10:20 EST Office Visit [facility] Endocrinology - [address] [phone] Day Littlejohn MD PhD [address] [place] [address] [address] [place] [phone] documented as of this encounter Visit Diagnoses Diagnosis 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HCC-CMS)- Primary Diabetes insipidus documented in this encounter Care Teams Extruder Relationship Specialty Start Date End Date Akil Serrano MD 74 [facility] [place] [address] PCP - General 02/21/10 04/16/11 documented as of this encounter
--- OUTSIDE RECORDS SUMMARY | 2024-03-05 15:46 | XMS_ITS | Encounter Summary ---
Author Organization [facility] Address [address] [place] [address] Care Team Providers Care Avp Name Role Phone Akil Serrano MD Primary Care Provider [phone] Encounter Details Date Type Department Care Team (Late st Contact Info) Description 02/21/2010 Results Only [facility] - [facility] [address] [place] [address] [facility] [address] [place] [phone] Social History Tobacco Use Types Packs/Day Years Used Date Smoking Tobacco: Never Assessed Sex and Gender Information Value Date Recorded Sex Assigned at Not on file Gender Identity Not on file Sexual Orientation Not on file documented as of this encounter Plan of Treatment Upcoming Encounters Date Type Department Care Team (Late st Contact Info) Description 09/09/2024 10:20 EST Office Visit [facility] Endocrinology - [address] [phone] Day Littlejohn MD PhD 62 [facility] [address] [place] [address] documented as of this encounter Procedures Procedure Name Priority Date/Time Associated Diagnosis Comments T4 FREE Routine 02/21/2010 12:28 EDT TESTOSTERONE Routine 02/21/2010 12:28 EDT COMPREHENSIVE METABOLIC PANEL (CMP) Routine 02/21/2010 12:28 EDT documented in this encounter Results * COMPREHENSIVE METABOLIC PANEL (02/21/2010 12:28 EDT) Potassium 4.3 3.5 - 5.0 mEq/L [facility] Sodium 142 136 - 145 mEq/L [facility] Chloride 105 96 - 110 mEq/L [facility] CO2 26 24 - 32 mEq/L [facility] Total Alkaline Phosphatase 92 38 - 126 U/L [facility] Bilirubin, Total <0.5 0.2 - 1.3 mg/dl [facility] AST 19 15 - 46 U/L [facility] ALT 42 21 - 72 U/L [facility] Albumin 4.4 3.4 - 4.9 g/dl [facility] Total Protein 7.3 6.5 - 8.3 g/dl [facility] Creatinine 0.81 0.7 - 1.5 mg/dl [facility] GFR, Calculated >60 ml/min/1.7 3m2 [facility] BUN 10 10 - 26 mg/dl [facility] Calcium 9.4 8.5 - 10.5 mg/dl [facility] Calculated Calcium 9.4 8.5 - 10.5 mg/dl [facility] Glucose, Serum 81 70 - 100 mg/dl [facility] Fasting? No [facility] Blood specimen (specimen) 02/21/2010 12:28 EDT 02/21/2010 12:30 EDT Skyler Edwards [facility] CHEMIS TRY & BLOOD GAS ORDERABLES [facility] [address] [place] [address] * (ABNORMAL) TESTOSTERONE (02/21/2010 12:28 EDT) Testosterone, Total <10(L) 241 - 827 ng/dL [facility] Comment:Sample retested, res ult confirmed Blood specimen (specimen) 02/21/2010 12:28 EDT 02/21/2010 12:30 EDT Skyler Edwards [facility] CHEMIS TRY & BLOOD GAS ORDERABLES Performing Organization Address [facility] Co de Phone Number [facility] [address] [place] [address] * T4 FREE (02/21/2010 12:28 EDT) Free T4 1.3 0.8 - 1.8 ng/dL [facility] Blood specimen (specimen) 02/21/2010 12:28 EDT 02/21/2010 12:30 EDT Skyler Edwards [facility] CHEMIS TRY & BLOOD GAS ORDERABLES Performing Organization Address [facility] de Phone Number [facility] [address] [place] [address] documented in this encounter Visit Diagnoses Not on filedocumented in this encounter Care Teams Avp Relationship Specialty Start Date End Date Akil Serrano MD 74 [facility] [place] [address] PCP - General 02/21/10 04/16/11 documented as of this encounter
--- OUTSIDE RECORDS SUMMARY | 2024-03-05 15:46 | XMS_ITS | Encounter Summary ---
Author Organization [facility] Address [address] [place] [address] Care Team Providers Care Metal Template Maker Name Role Phone Akil Serrano MD Primary Care Provider [phone] Encounter Details Date Type Department Care Team (Late st Contact Info) Description 07/03/2010 Results Only Imaging [facility] [phone] Akil Serrano MD [address] [facility] [place] [id number] Social History Tobacco Use Types Packs/Day Years [...] Office Visit [facility] Endocrinology - [facility] [address] [place] [address] Day Littlejohn MD PhD 62 [facility] [address] [place] [address] documented as of this encounter Visit Diagnoses Not on filedocumented in this encounter Care Teams Metal Template Maker Relationship Specialty Start Date End Date Akil Serrano MD 74 [facility] [address] [place] [address] PCP - General 02/21/10 04/16/11 documented as of this encounter
--- OUTSIDE RECORDS SUMMARY | 2024-03-05 15:46 | XMS_ITS | Encounter Summary ---
Author Organization [facility] Address [address] [place] [address] Care Team Providers Care Parts Inspector Name Role Phone Akil Serrano MD Primary Care Provider [phone] Reason for Visit * Reason Onset Date Comments Labs Only 07/17/2010 Encounter Details Date Type Department Care Team (Late st Contact Info) Description 07/17/2010 Orders Only [facility] Endocrinology - [address] [address] Wilder Zaidi, [address] [place] [address] [address] [place] [address] 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CMS-HCC) (HCC-CMS) (Primary Dx) Social History Tobacco Use [...] 09/09/2024 10:20 EST Office Visit [facility] Endocrinology - [address] [address] Day Littlejohn MD PhD 62 [facility] [address] [place] [address] documented as of this encounter Visit Diagnoses Diagnosis 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HCC-CMS)- Primary Diabetes insipidus documented in this encounter Care Teams Parts Inspector Relationship Specialty Start Date End Date Akil Serrano MD 74 [facility],[address] [place] [address] PCP - General 02/21/10 04/16/11 documented as of this encounter
--- OUTSIDE RECORDS SUMMARY | 2024-03-05 15:46 | XMS_ITS | Encounter Summary ---
Author Organization [facility] Address [address] [place] [address] Care Team Providers Care Registered Respiratory Technician Name Role Phone Corin Skinner MD Primary Care Provider [phone] Encounter Details Date Type Department Care Team (Latest Contact Info) Description 04/13/2009 11:12 EDT - 04/13/2009 23:59 EDT Hospital Encounter [facility] [address] [place] [address] Maxine Felix, WIRE BASKET MAKER Discharge Disposition: Home or Self Care Social History Tobacco Use Types Packs/Day Years Used Date Smoking Tobacco: Never Assessed Sex and Gender Information Value Date Recorded Sex Assigned at Not on file Gender Identity Not on file Sexual Orientation Not on file documented as of this encounter Discharge Disposition Disposition Code Departure Means Destination Home or Self Group Home documented in this encounter Plan of Treatment Upcoming Encounters Date Type Department Care Team (Late st Contact Info) Description 09/09/2024 10:20 EST Office Visit [facility] End[facility]ology - [facility] [address] [place] [address] Day Littlejohn MD PhD 62 [facility] [address] [place] [address] documented as of this encounter Procedures Procedure Name Priority Date/Time Associated Diagnosis Comments OSMOLALITY Routine 04/13/2009 11:41 EDT T4 FREE Routine 04/13/2009 11:41 EDT CORTISOL Routine 04/13/2009 11:41 EDT BASIC METABOLIC PANEL (BMP) Routine 04/13/2009 11:41 EDT documented in this encounter Results * (ABNORMAL) BASIC METABOLIC PANEL (04/13/2009 11:41 EDT) Sodium 132(L) 136 - 145 mEq/L [facility] Potassium 4.4 3.5 - 5.0 mEq/L [facility] Chloride 96 96 - 110 mEq/L [facility] CO2 26 24 - 32 mEq/L [facility] BUN 14 10 - 26 mg/dl [facility] Creatinine 0.66(L) 0.7 - 1.5 mg/dl [facility] GFR, Calculated >60 ml/min/1.7 3m2 [facility] Calcium 9.3 8.5 - 10.5 mg/dl [facility] Calculated Calcium 9.2 8.5 - 10.5 mg/dl [facility] Glucose, Serum 61(L) 70 - 100 mg/dl [facility] Fasting? No [facility] Blood specimen (specimen) 04/13/2009 11:41 EDT 04/13/2009 11:43 EDT Maxine Felix WIRE BASKET MAKER CHEMISTRY & BLOO D GAS ORDERABLES Performing Organization Address [facility] Co de Phone Number [facility] [address] [place] [address] * T4 FREE (04/13/2009 11:41 EDT) Free T4 1.6 0.8 - 1.8 ng/dL [facility] Blood specimen (specimen) 04/13/2009 11:41 EDT 04/13/2009 11:43 EDT Maxine Felix WIRE BASKET MAKER CHEMISTRY & BLOO D GAS ORDERABLES Performing Organization Address [facility] Co de Phone Number [facility] [address] [place] [address] * (ABNORMAL) OSMOLALITY (04/13/2009 11:41 EDT) Osmolality Cintia 273(L) 280 - 300 MOS/KG [facility] Blood specimen (specimen) 04/13/2009 11:41 EDT 04/13/2009 11:43 EDT Maxine Felix WIRE BASKET MAKER CHEMISTRY & BLOO D GAS ORDERABLES Performing Organization Address [facility] de Phone Number [facility] [address] [place] [address] * CORTISOL (04/13/2009 11:41 EDT) Cortisol 25 ug/dl [facility] Comment: 7-9a.m.=4.3-22.4 3-5p.m.=3.1-16.7 Blood specimen (specimen) 04/13/2009 11:41 EDT 04/13/2009 11:43 EDT Maxine Felix WIRE BASKET MAKER CHEMISTRY & BLOO D GAS ORDERABLES Performing Organization Address [facility] de Phone Number [facility] [address] [place] [address] documented in this encounter Visit Diagnoses Not on filedocumented in this encounter Care Teams Registered Respiratory Technician Relationship Specialty Start Date End Date Corin Skinner MD [address] [place] [phone] PCP - General 10/24/08 08/21/09 documented as of this encounter
--- OUTSIDE RECORDS SUMMARY | 2024-03-05 15:46 | XMS_ITS | Encounter Summary ---
Author Organization [facility] Address [address] [place] [address] Care Team Providers Care Sewing Machine Repairer Name Role Phone Akil Serrano MD Primary Care Provider [phone] Encounter Details Date Type Department Care Team (Late st Contact Info) Description 02/21/2010 11:47 EDT - 02/21/2010 23:59 EDT Hospital Encounter [facility] [address] [place] [address] Skyler Edwards [facility] [address] [place] [phone] Discharge Disposition: Home or Self Care Social History Tobacco Use Types Packs/Day Years Used Date Smoking Tobacco: Never Assessed Sex and Gender Information Value Date Recorded Sex Assigned at Not on file Gender Identity Not on file Sexual Orientation Not on file documented as of this encounter Discharge Disposition Disposition Code Departure Means Destination Home or Self Nursing Home documented in this encounter Plan of Treatment Upcoming Encounters Date Type Department Care Team (Late st Contact Info) Description 09/09/2024 10:20 EST Office Visit [facility] Endocr[facility]ology - [facility] [address] [place] [address] Day Littlejohn MD PhD 62 [facility] [address] [place] [address] documented as of this encounter Visit Diagnoses Not on filedocumented in this encounter Care Teams Sewing Machine Repairer Relationship Specialty Start Date End Date Akil Serrano MD [address] [facility] [address] [place] [address] PCP - General 02/21/10 04/16/11 documented as of this encounter
--- OUTSIDE RECORDS SUMMARY | 2024-03-05 15:46 | XMS_ITS | Encounter Summary ---
Author Organization [facility] Address [address] [place] [address] Care Team Providers Care Solar Sales Representative Name Role Phone Akil Serrano MD Primary Care Provider [phone] Reason for Visit * Reason Onset Date Comments Results 07/17/2010 Encounter Details Date Type Department Care Team (Late st Contact Info) Description 07/17/2010 Telephone [facility] Endocrinology - [facility] [address] [place] [address] Wilder Zaidi DO [address] [facility] [address] [place] [address] Results Social History Tobacco Use [...] Telephone Encounter - Wilder Zaidi DO - 07/17/2010 1139 EST Recent blood work from at [facility] showed sodium normal at 139. Recheck of Free T4 also now normal at 1.4. Spoke with Marta via phone. Miguel Angel is doing well. Urine output is normal. Appears more alert. Will have them draw a sodium level today with results faxed to me. Will call Marta with results tomorrow. documented in this encounter Plan of Treatment Upcoming Encounters Date Type Department Care Team (Late st Contact Info) Description 09/09/2024 10:20 EST Office Visit [facility] Endocrinology - [facility] [address] [place] [address] Day Littlejohn MD PhD [address] [facility] [address] [place] [address] documented as of this encounter Visit Diagnoses Not on filedocumented in this encounter Care Teams Solar Sales Representative Relationship Specialty Start Date End Date Akil Serrano MD 74 [facility] [address] [place] [address] PCP - General 02/21/10 04/16/11 documented as of this encounter
--- OUTSIDE RECORDS SUMMARY | 2024-03-05 15:46 | XMS_ITS | Encounter Summary ---
Author Organization [facility] Address [address] [place] [address] Care Team Providers Care Hand Crocheter Name Role Phone Akil Serrano MD Primary Care Provider [phone] Reason for Visit * Reason Onset Date Comments Medications Refill 06/12/2010 Encounter Details Date Type Department Care Team (Late st Contact Info) Description 06/12/2010 Refill [facility] Endocrinology - [facility] [address] [place], [place] [address] [facility] [address] [place] [address] Medications Refill Social History Tobacco Use Types Packs/Day Years Used Date Smoking Tobacco: Never Assessed Sex and Gender Information Value Date Recorded Sex Assigned at Not on file Gender Identity Not on file Sexual Orientation Not on file documented as of this encounter Miscellaneous Notes * Telephone Encounter - Suzan Brasher, RN - 06/13/2010 0913 EST Spoke to Radha at [facility]. Miguel Angel has enough DDAVP until next week and sees Dr. Zaidi, adult endo, 06/14/10. Advised her that Dr. Zaidi's office will prescribe medication for the future; he just needs to know what pharmacy to use. * Telephone Encounter - [place] Cool - 06/12/2010 1600 EST Radha is calling from [facility] [employer] (her EXT is [phone]). Pt's medication can not befilled in the area. Could it be called into [facility] , patient has an appointment at [facility] on 06/14/10 and would be able to pick it up then. Please call Radha to confirm. Medication is desmodrefsin 0.8 ml ; twice a day. documented in this encounter Plan of Treatment Upcoming Encounters Date Type Department Care Team (Late st Contact Info) Description 09/09/2024 10:20 EST Office Visit [facility] Endocrinology - [address] [address] Day Littlejohn MD PhD [address] [place] [address] [address] [place] [address] documented as of this encounter Visit Diagnoses Not on filedocumented in this encounter Care Teams Hand Crocheter Relationship Specialty Start Date End Date Akil Serrano MD [address] [facility] [address] [place] [address] PCP - General 02/21/10 04/16/11 documented as of this encounter
--- OUTSIDE RECORDS SUMMARY | 2024-03-05 15:46 | XMS_ITS | Encounter Summary ---
Author Organization [facility] Address [address] [place] [address] Care Team Providers Care Safety Instructor Name Role Phone Akil Serrano MD Primary Care Provider [phone] Reason for Visit * Reason Onset Date Comments Medications Refill 07/26/2010 PATIENT OUT O F MED Encounter Details Date Type Department Care Team (Late st Contact Info) Description 07/26/[address] [address] Wilder Zaidi, 62 [facility] [address] [place] [address] Medications Refill (PATIENT OUT OF MED) Social History Tobacco Use Types Packs/Day Years [...] skin daily. 30 Packet 5 07/27/2010 06/18/2011 documented in this encounter Plan of Treatment Upcoming Encounters Date Type Department Care Team (Late st Contact Info) Description 09/09/2024 10:20 EST Office Visit [facility] Endocrinology [address] [phone] Day Littlejohn MD PhD 62 [facility] [address] [place] [address] documented as of this encounter Visit Diagnoses Not on filedocumented in this encounter Discontinued Medications Medication Sig Discontinue Reason Start Date End Da te testosterone (ANDROGEL) 1 % (25 mg/2.5 g) GlPk Apply topically daily. 07/27/2010 documented as of this encounter Care Teams Safety Instructor Relationship Specialty Start Date End Date Akil Serrano MD [address] [facility] [place] [address] PCP - General 02/21/10 04/16/11 documented as of this encounter
--- OUTSIDE RECORDS SUMMARY | 2024-03-05 15:46 | XMS_ITS | Encounter Summary ---
Author Organization [facility] Address [address] [place] [address] Care Team Providers Care Validation Consultant Name Role Phone Akil Serrano MD Primary Care Provider [phone] Reason for Visit * Reason Onset Date Comments Other 07/09/2010 Patient had sodi um level checked, injection of Desmpressin changed to pill form. Guardian noticed urination frequency down and bright yellow in color Encounter Details Date Type Department Care Team (Late st Contact Info) Description 07/09/2010 Telephone [facility] - [facility] [address] [place] [address] Wilder Zaidi DO [address] [facility] [address] [place] [address] Other (Patient had sodium level checked, injection of Desmpressin changed to pill form. Guardian noticed urination frequency down and bright yellow in color) Social History Tobacco Use Types Packs/Day Years [...] Encounter - Wilder Zaidi DO - 07/10/2010 3879 EST Spoke with mathematics department chair Marta via phone. Patient's guardian Marta and sister attempted to contact office yesterday. Message was not routed to this provider until this am. Patient with complicated medical history including central diabetes insipidus. Switched from SQ to oral DDAVP as a result of national shortage of SQ DDAVP. 4 days after switch mathematics department chair noticed change in behavior. ER trip last night showed sodium allegedly high. Contacted on-call endocrinologists who increased oral DDAVP to 0.1 mg int he am and 0.5 mg in the evening. Advised family to increased fluid intake to 60 oz per day andto closely monitor urine output. Gave mathematics department chair PAS number to contact me directly with any questions or concerns. Will check in tomorrow am 07/11/10. May obtain repeat sodium. documented in this encounter Plan of Treatment Upcoming Encounters Date Type Department Care Team (Late st Contact Info) Description 09/09/2024 10:20 EST [facility] - [address] [phone] Day Littlejohn MD PhD [address] [place] [address] [address] [place] [phone] documented as of this encounter Visit Diagnoses Diagnosis 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HCC-CMS)- Primary Diabetes insipidus documented in this encounter Care Teams Validation Consultant Relationship Specialty Start Date End Date Akil Serrano MD [address] [facility] [place] [address] PCP - General 02/21/10 04/16/11 documented as of this encounter
--- OUTSIDE RECORDS SUMMARY | 2024-03-05 15:46 | XMS_ITS | Encounter Summary ---
Author Organization [facility] Address [address] [place] [address] Care Team Providers Care Slug Press Operator Name Role Phone Corin Skinner MD Primary Care Provider [phone] Encounter Details Date Type Department Care Team (Late st Contact Info) Description 12/07/2008 11:45 EDT - 12/07/2008 23:59 EDT Hospital Encounter [facility] [address] [place] [address] Skyler Edwards [facility] [address] [place] [phone] Discharge Disposition: Home or Self Care Social History Tobacco Use Types Packs/Day Years Used Date Smoking Tobacco: Never Assessed Sex and Gender Information Value Date Recorded Sex Assigned at Not on file Gender Identity Not on file Sexual Orientation Not on file documented as of this encounter Discharge Disposition Disposition Code Departure Means Destination Home or Self [facility]dc documented in this encounter Plan of Treatment Upcoming Encounters Date Type Department Care Team (Late st Contact Info) Description 09/09/2024 10:20 EST Office Visit [facility] Endocrinology - [facility] [address] [place] [address] Day Littlejohn MD PhD 62 [facility] [address] [place] [address] documented as of this encounter Procedures Procedure Name Priority Date/Time Associated Diagnosis Comments T4 FREE Routine 12/07/2008 12:01 EDT BASIC METABOLIC PANEL (BMP) Routine 12/07/2008 12:01 EDT documented in this encounter Results * T4 FREE (12/07/2008 12:01 EDT) Free T4 1.6 0.8 - 1.8 ng/dL [facility] Blood specimen (specimen) 12/07/2008 12:01 EDT 12/07/2008 12:03 EDT Skyler Edwards [facility] CHEMIS TRY & BLOOD GAS ORDERABLES Performing Organization Address [facility] Co de Phone Number [facility] [address] [place] [address] * (ABNORMAL) BASIC METABOLIC PANEL (12/07/2008 12:01 EDT) Sodium 148(H) 136 - 145 mEq/L [facility] Potassium 4.2 3.5 - 5.0 mEq/L [facility] Chloride 107 96 - 110 mEq/L [facility] CO2 29 24 - 32 mEq/L [facility] BUN 22 10 - 26 mg/dl [facility] Creatinine 0.79 0.7 - 1.5 mg/dl [facility] GFR, Calculated >60 ml/min/1.7 3m2 [facility] Calcium 9.2 8.5 - 10.5 mg/dl [facility] Calculated Calcium 9.2 8.5 - 10.5 mg/dl [facility] Glucose, Serum 65(L) 70 - 100 mg/dl [facility] Fasting? No [facility] Blood specimen (specimen) 12/07/2008 12:01 EDT 12/07/2008 12:03 EDT Skyler Edwards [facility] CHEMIS TRY & BLOOD GAS ORDERABLES Performing Organization Address City/[facility] Co de Phone Number [facility] [address] [place] [address] documented in this encounter Visit Diagnoses Not on filedocumented in this encounter Care Teams Slug Press Operator Relationship Specialty Start Date End Date Corin Skinner MD [address] [place] [phone] PCP - General 10/24/08 08/21/09 documented as of this encounter
--- OUTSIDE RECORDS SUMMARY | 2024-03-05 15:46 | XMS_ITS | Encounter Summary ---
Author Organization [facility] Address [address] [place] [address] Care Team Providers Care Cement Or Concrete Finishing Supervisor Name Role Phone Akil Serrano MD Primary Care Provider [phone] Reason for Visit * Reason Comments Hypogonadism Encounter Details Date Type Department Care Team (Latest Contact Info) Description 06/14/2010 13:00 EST Office Visit [facility] Endocrinology - [facility] [address] [phone] Wilder Zaidi, [address] [facility] [address] [place] [address] 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HCC-CMS) (Primary Dx) Social [...] Sign Reading Time Taken Comments Blood Pressure 98/64 06/14/2010 1250 EST Pulse 68 06/14/2010 1250 EST Temperature - - Respiratory Rate - - Oxygen Saturation - - Inhaled Oxygen Concentration - - Weight 81.2 kg (179 lb) 06/14/2010 1250 EST Height 175.3 cm (5' 9) 06/14/2010 1250 EST Body Mass Index 26.43 06/14/2010 1250 EST documented in this encounter Patient Instructions * Patient Instructions* Wilder Zaidi DO - 06/14/2010 13:59 EST 1. Call with questions or concerns 2. Schedule Miguel Angel with an eye physician for a visual field test 3. Obtain lab work in the morning at his next scheduled lab draw (06/21/10) 4. Stress dose his steroids if he becomes ill documented in this encounter Progress Notes * Wilder Zaidi DO - 06/14/2010 1501 EST This office note has been dictated. documented in this encounter Consult Notes * Wilder Zaidi, - 2010 1652 EST DIVISION OF ENDOCRINOLOGY CONSULTATION - 06/14/[address] Serrano: I had the pleasure of seeing your patient, Mr. 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 I had the pleasure of meeting Mr. Burgos and his sister as well as his caretakers from the [facility] at the pediatric endocrine transition clinic with Dr. Edwards, on 02/21/2010. Please see that note for full details. Dr. Edwards did have a follow-up visit on 02/28/2010 with Miguel Angel's caregivers, as well as Bettina and his nurse from the [facility], Radha Conteh. Today both his caretakers and Radha Conteh are present, but sister was unable to make the visit. From a discussion with the folks who accompanied Miguel Angel today, it appears that his parents have relinquished their parental rights, although t here is still some discussion regarding who has been appointed guardian. The goal is to appoint hissister, Bettina, as a guardian, with estate guardian as well. This is currently in the court system.There was clarification of Miguel Angel's DDAVP dose at that visit with Dr. Edwards on 02/28/2010, which you can read in detail in his letter. Upon interview today, Miguel Angel seems to be doing well. His 20th birthday is tomorrow. With regard to his central diabetes insipidus, his caretakers are compliant with the 50 ounce fluid restriction, which has seemed to maintain good sodium and water balance. Both his caretakers and Miguel Angel deny any symptoms of low thyroid hormone levels including cold intolerance, constipation or changes in his hair, skin or nails. They have not had to use stress-dose steroids with Miguel Angel since February and he has beenreportedly in good health. They were able to articulate how and when to increase his steroid dose in the setting of illness. Miguel Angel has been switched to testosterone gel 5 grams, which is applied oncea day by his male caretaker grounds using gloves. They use of pump at 3 pumps of 1.25 grams per pump. Reportedly, they have had a testosterone level drawn by a primary care provider, but that was in the lateafternoon. I do not have his most recent laboratory evaluation from 05/22/2010 to review here todayin the office. Miguel Angel continues to consume appropriate amount of calcium to meet his requirements and does take Vitamin D 400 international units daily. Family states they were planning on obtaining a repeat MRI through Dr Perez's office, but this hadto be canceled because there was some confusion as to who would be able to sign the consent for that procedure. We do not feel that Miguel Angel has had an excessive amount of urination. Does not repeatedlyask for fluid. Review of Systems: All other review of systems not found in the HPI were asked and found to be negative. Past Medical History: Reviewed as documented on electronic medical record. Medications: Are as follows: Vitamin D 400 international units daily. Desmopressin 4 mcg per mL of DDAVP and they inject 0.08 mL b.i.d. Hydrocortisone 10 mg at noon, and 1700. Hydrocortisone 20 mg in the morning. Levothyroxine 200 mcg p.o. daily. Provigil 200 mg p.o. daily. Seroquel 300 mg p.o. daily. AndroGel 5 grams subcutaneously daily. Zonegran 25 mg tablets, 3 tablets p.o. at bedtime. Social History: Miguel Angel is going to be 20 years old tomorrow. He currently lives with his caretakers in [place], [place], and has the services as described above. He does not smoke, drink alcohol or use illicit drugs. Family History: Noncontributory. Objective: Vital signs: Blood pressure is 100/64 with a pulse of 68, weight is 179 pounds. He is 175.3 cm, giving him a BMI of 26.4. 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 He does not appear particularly agitated today. HEENT: Eyes: There appears to be no lid lag or periorbital edema noted. Mouth: Mucous membranes are moist and pink in color, although patient is chewing gum. No oral lesions seen. No oral thrush. Neck is supple. Thyroid appears somewhat small in size and sits low in the neck but is without tenderness, nodules to palpation. Respiratory: Lungs clear to auscultation bilaterally. Cardiovascular: Heart is regular without murmurs, rubs or gallops. GI: Abdomen is soft, nontender, nondistended, good bowel sounds in all 4 quadrants. Neuro: DTRs are +2/4 and equal bilaterally in all 4 extremi ties. There is no obvious resting tremor. Integument: Skin temperature, texture and turgor were normal and the androgen application site was without erythema, rash or irritation. Assessment: 1. Mr. 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 Hissurgery was complicated by intracranial bleed that left him with bilateral thalamic infarct, significant neurologic impairment and near total visual impairment. He currently lives with his caregivers. A. 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 Miguel Angel appears to be clinically euvolemic today. The caregivers report that they have 1 week left of his injectable DDAVP and are having difficulty locating this medication. Will follow up with them, but I believe there is perhaps a national shortage of this medication. We may need to consider changing to oral DDAVP or perhaps we could have prefilled syringes with compounded DDAVP delivered from our pharmacy at [facility]. Will speak briefly with Dr. Edwards to see if there was any clinical indication or if he was tried on oral DDAVP. We will contact Radha at his agency and his caregivers as soon as I have information. Continue with the fixed fluid regimen of 50 ounces per day, which he is compliant with. Continue to watch sodiums on amonthly basis. He is due to have his lab drawn in mid June. B. Secondary hypothyroidism. He appears clinically euthyroid today. He is on levothyroxine 200 mcg daily and takes this medicine first thing in the morning on an empty stomach. Will check a free T4, with his upcoming laboratory testing to confirm that this dose is adequate for him. C. Secondary adrenal insufficiency. The patient continues to remain on relatively high-dose hydrocortisone at a total of 40 mg daily. There have been attempts to decrease his steroid dosing, which has caused some behavioral problems in the past. May need to consider titrating over time, particularly now that he is on Seroquel and his living situation may become more stable. His weight has remained stable. They have not had to do any stress dosing. They have a medical alert bracelet. He also hasinjectable hydrocortisone at home and his caretakers are able to articulate when and how to use that injectable medication. D. Secondary hypogonadism (hypogonadotropic hypogonadism). Switched to AndroGel, seems to be doing well. His family has been noting some itching under his arms and some increase in his body hair. Will check his total testosterone level in the morning at his next lab draw to evaluate his dose. He will need yearly CBC. E. Growth hormone deficiency. Miguel Angel's parents have not been interested in pursuing adult growth hormone replacement in the past. There may be some potential benefits to growth hormone replacement, particular with respect to energy lipid profile, muscle mass, cardiac function and overall well being.We will consider further therapy once his caretaker grounds has been established. Plan: 1. Will address the need for possible switch to oral DDAVP from his subcutaneous injections as noted above. We will contact Radha and family when I have a resolution of that issue. 2. Will see him back in 4 months. 3. Continue with monthly laboratory evaluation, particularly sodium. 4. Will obtain a free T4 and a morning total testosterone level with his next blood draw on 06/21 and contact his caretakers and Radha with those results. 5. His sister, Bettina, is heavily involved in his care, and is granted permission to make decisionsregarding his care. 6. Patient was given a flu vaccination today. Sincerely, Electronically Signed by Wilder Zaidi DO 2010 16:52 Wilder Zaidi DO - Wilder Zaidi DO - DSP Job ID: SM Doc ID: [id number] Ext Doc ID: [id number] cc: MD Akil Marsh MD Paul James Zimakas, MD documented in this encounter Plan of Treatment Upcoming Encounters Date Type Department Care Team (Late st Contact Info) Description 09/09/2024 10:20 EST Office Visit [facility] [place] [address] Day Littlejohn MD PhD [address] [place] [address] [place] [phone] documented as of this encounter Visit Diagnoses Diagnosis 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HCC-CMS)- Primary Panhypopituitarism documented in this encounter Care Teams Cement Or Concrete Finishing Supervisor Relationship Specialty Start Date End Date Akil Serrano MD [address] [place] [address] PCP - General 02/21/10 04/16/11 documented as of this encounter
--- OUTSIDE RECORDS SUMMARY | 2024-03-05 15:46 | XMS_ITS | Encounter Summary ---
Author Organization [facility] Address [address] [place] [address] Care Team Providers Care Bending Roll Hand Name Role Phone Akil Serrano MD Primary Care Provider Encounter Details Date Type Department Care Team (Latest Contact Info) Description 08/31/2010 10:42 EST - 08/31/2010 23:37 [facility] Hospital Encounter [facility] Perioperative Services- [facility] [address] [place], [place] [address] Hilton Quick MD [address] [place] [phone] Discharge Disposition: Home or Self Care Social [...] on file documented as of this encounter Medications at Time of Discharge Medication Sig Dispensed Refills Start Date End Date Cholecalciferol, Vitamin D3, 400 unit Tab Take [...] documented in this encounter Progress Notes * Jennifer Dumont - 08/31/2010 1134 EST 1115-pt's MRI canceled Pt to reschedule MRI * Jennifer Dumont - 08/31/2010 1111 EST 1055-pt admitted to [facility] bed # 3 for sedated MRI-support person noted that pt had 4 baby carrots at 1000-and water with meds earlier Called anesthesia to see what plan of care would be due to eating-support person aware there may harpreet delay or cancellation due to eating * Maxine Vines RN - 08/24/2010 1450 EST Miguel Angel Burgos Jr. has been instructed as follows regarding medication administration for the day of the scheduled procedure. Date of Surgery: 08/31/2010 Instructions for Taking Medications Day of Surgery Medication Last Dose Hold DOS Take DOS Melatonin 3 mg Tab @ HS ZONISAMIDE ORAL @ HS testosterone (ANDROGEL) 1 %(50 mg/5 gram) gel yes desmopressin (DDAVP) 0.1 mg tablet yes hydrocortisone (CORTEF) 20 mg tablet yes hydrocortisone (CORTEF) 10 mg tablet @ 1200 and 1700 levothyroxine (SYNTHROID) 200 mcg tablet yes Cholecalciferol, Vitamin D3, 400 unit Tab yes modafinil (PROVIGIL) 200 mg tablet yes quetiapine (SEROQUEL) 300 mg tablet @ HS documented in this encounter H&P Notes * Inpatient, Physician - 08/31/2010 0000 EST documented in this encounter OR Notes * OR PreOp - Inpatient, Physician - 08/31/2010 0000 EST documented in this encounter Plan of Treatment Upcoming Encounters Date Type Department Care Team (Late st Contact Info) Description 09/09/2024 10:20 EST Office Visit [facility] Endocrinology - [address] [address] Day Littlejohn MD PhD [address] [place] [address] [address] [place] [phone] documented as of this encounter Visit Diagnoses Not on filedocumented in this encounter Discontinued Medications Medication Sig Discontinue Reason Start Date End Da te zonisamide (ZONEGRAN) 25 mg capsule Take 25 mg by mouth daily. Takes 75 mg @@ HS Therapy completed 08/24/2010 documented as of this encounter Historical Medications * This list may reflect changes made after this encounter. Medication Sig Dispensed Refills Start Date End Date Melatonin 3 mg Tab Take 10 mg by mouth at bedtime. 08/24/2010 ZONISAMIDE ORAL Take 75 mg by mouth at bedtime. 08/24/2010 12/27/2014 added in this encounter Care Teams Bending Roll Hand Relationship Specialty Start Date End Date Akil Serrano MD [address] [facility] [place] [address] PCP - General 02/21/10 04/16/11 documented as of this encounter
--- OUTSIDE RECORDS SUMMARY | 2024-03-05 15:46 | XMS_ITS | Encounter Summary ---
Author Organization [facility] Address [address] [place] [address] Care Team Providers Care Pickle Pumper Name Role Phone Akil Serrano MD Primary Care Provider [phone] Reason for Visit * Reason Onset Date Comments Medication Problem 06/19/2010 Encounter Details Date Type Department Care Team (Late st Contact Info) Description 06/19/2010 [facility] End[facility]ology - [facility] [address] [place] [address] Wilder Zaidi DO [address] [facility] [address] [place] [address] Medication Problem Social History Tobacco Use Types Packs/Day Years [...] a day. 15 Tab 11 06/19/2010 03/19/2011 documented in this encounter Miscellaneous Notes * Telephone Encounter - Wilder Zaidi, - 06/19/2010 5753 EST Spoke with Gerry Garcia this afternoon. There is a manufactures delay on the SQ DDAVP and there is none available. Will switch to PO dose at 0.05 mg BID. Advised Radha to contact Miguel Angel's caretakers and have them watch for increased urine output or thirst. There are instructed to call the in-call doctor after hours or this provider during the day with problems. Will recheck sodium levels in 2days after switch. Monitor urine output and watch for mental status changes. * Telephone Encounter - Melba Price - 06/19/2010 0942 EST Radha is wondering about desmoprissen and if you have been able to find it. [phone] ext [phone] documented in this encounter Plan of Treatment Upcoming Encounters Date Type Department Care Team (Late st Contact Info) Description 09/09/2024 10:20 EST [facility] - [facility] [address] [place] [address] Day Littlejohn MD PhD [address] [facility] [address] [place] [address] documented as of this encounter Visit Diagnoses Diagnosis 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HCC-CMS)- Primary Diabetes insipidus documented in this encounter Discontinued Medications Medication Sig Discontinue Reason Start Date End Da te DESMOPRESSIN ACETATE (DESMOPRESSIN INJ) Inject as directed. Takes .08 ml SQ BID 06/19/2010 documented as of this encounter Care Teams Pickle Pumper Relationship Specialty Start Date End Date Akil Serrano MD [address] [facility] [place], [place] [address] PCP - General 02/21/10 04/16/11 documented as of this encounter
--- OUTSIDE RECORDS SUMMARY | 2024-03-05 15:46 | XMS_ITS | Encounter Summary ---
Author Organization [facility] Address [address] [place] [address] Care Team Providers Care Head Buyer Tobacco Name Role Phone Akil Serrano MD Primary Care Provider [phone] Encounter Details Date Type Department Care Team (Late st Contact Info) Description 05/23/2010 Abstract [facility] Endocrinology - [address] [address] Wilder Zaidi, [address] [address] Social History Tobacco Use Types Packs/Day Years [...] [facility] [address] [phone] Day Littlejohn MD PhD [address] [place] [address] [address] [place] [address] documented as of this encounter Visit Diagnoses Not on filedocumented in this encounter Discontinued Medications Medication Sig Discontinue Reason Start Date End Da te zonisamide (ZONEGRAN) 100 mg capsule Take 100 mg by mouth daily. 05/23/2010 potassium chloride (KLOR-CON) 20 mEq packet Take 20 mEq by mouth. 1 1/2 tabs daily 05/23/2010 documented as of this encounter Historical Medications * This list may reflect changes made after this encounter. Medication Sig Dispensed Refills Start Date End Date quetiapine (SEROQUEL) 300 mg tablet Take 200 mg by mouth at bedtime. 08/24/2010 Cholecalciferol, Vitamin D3, 400 unit Tab Take 2.5 Tablets by mouth daily. 08/24/2010 hydrocortisone sod succ, PF, (SOLU-CORTEF, PF,) 100 mg/2 mL SolR injection Inject 50 mg into the vein every 6 hours. 05/29/2010 testosterone (ANDROGEL) 1 % (25 mg/2.5 g) GlPk Apply topically daily. 07/27/2010 potassium chloride SA (K-DUR, KLOR-CON M10) 10 mEq tablet Take 10 mEq by mouth daily. 05/23/2010 05/29/2010 potassium chloride (KLOR-CON) 20 mEq packet Take 20 mEq by mouth. 1 1/2 tabs daily 05/23/2010 ranitidine (ZANTAC) 150 mg tablet Take 150 mg by mouth 2 times daily. 05/29/2010 zonisamide (ZONEGRAN) 25 mg capsule Take 25 mg by mouth 3 times daily. 05/23/2010 05/29/2010 zonisamide (ZONEGRAN) 100 mg capsule Take 100 mg by mouth daily. 05/23/2010 modafinil (PROVIGIL) 200 mg tablet Take 200 mg by mouth daily. 04/18/2011 levothyroxine (SYNTHROID) 200 mcg tablet Take 200 mcg by mouth daily. 07/26/2013 hydrocortisone (CORTEF) 10 mg tablet Take 10 mg by mouth 2 times daily. 05/29/2010 added in this encounter Care Teams Head Buyer Tobacco Relationship Specialty Start Date End Date Akil Serrano MD [address] [place] [address] PCP - General 02/21/10 04/16/11 documented as of this encounter
--- OUTSIDE RECORDS SUMMARY | 2024-03-05 15:46 | XMS_ITS | Encounter Summary ---
Author Organization [facility] Address [address] [place] [address] Care Team Providers Care Surfacing Technician Name Role Phone Akil Serrano MD Primary Care Provider [phone] Reason for Visit * Reason Onset Date Comments Medication Management 06/20/2010 Bettina hankins ld like call back regarding medication change. Encounter Details Date Type Department Care Team (Late Contact Info) Description 06/20/2010 Telephone [facility] Endocrinology - [facility] [address] [place] [address] Wilder Zaidi DO [address] [facility] [place] [address] Medication Management (Bettina would like call back regarding medication change.) Social History Tobacco Use Types Packs/Day Years [...] Telephone Encounter - Wilder Zaidi DO - 06/22/2010 7241 EST Left message with Bettina. documented in this encounter Plan of Treatment Upcoming Encounters Date Type Department Care Team (Late st Contact Info) Description 09/09/2024 10:20 EST Office Visit [facility] Endocrinology - [facility] [address] [place], [place] [phone] Day Littlejohn MD PhD [address] [place] [address] documented as of this encounter Visit Diagnoses Not on filedocumented in this encounter Care Teams Surfacing Technician Relationship Specialty Start Date End Date Akil Serrano MD [address] [place] [address] PCP - General 02/21/10 04/16/11 documented as of this encounter
--- OUTSIDE RECORDS SUMMARY | 2024-03-05 15:47 | XMS_ITS | Encounter Summary ---
Author Organization [facility] Address [address] [place] [address] Care Team Providers Care Filling Station Equipment Mechanic Name Role Phone Corin Skinner MD Primary Care Provider [phone] Encounter Details Date Type Department Care Team (Late st Contact Info) Description 10/21/2008 Before PRISM Converted Visit (Maple) [facility] - Maple conversion [address] [place] [address] Emergency, MD Diya Social History Tobacco Use Types Packs/Day Years [...] EST Office Visit [facility] Endocrinology - [address] [phone] Day Littlejohn MD PhD [address] [place] [address] [address] [place] [address] documented as of this encounter Procedures Procedure Name Priority Date/Time Associated Diagnosis Comments ELECTROLYTES Routine 10/21/2008 17:54 EDT documented in this encounter Results * (ABNORMAL) ELECTROLYTES (10/21/2008 17:54 EDT) Sodium 120(LL) 136 - 145 mEq/L [facility] Comment:Sample retested, res ult confirmed Potassium 4.7 3.5 - 5.0 mEq/L [facility] Chloride 96 96 - 110 mEq/L [facility] CO2 20(L) 24 - 32 mEq/L [facility] 10/21/2008 17:5 4 EDT 10/21/2008 17:54 EDT Default Emergency MD CHEMISTRY & BLOOD G ORDERABLES Performing Organization Address City/State/[facility] Co de Phone Number [facility] [address] [place] [address] documented in this encounter Visit Diagnoses Not on filedocumented in this encounter Care Teams Filling Station Equipment Mechanic Relationship Specialty Start Date End Date Corin Skinner MD [address] [place] [phone] PCP - General 10/24/08 08/21/09 documented as of this encounter
--- OUTSIDE RECORDS SUMMARY | 2024-03-05 15:47 | XMS_ITS | Encounter Summary ---
Author Organization [facility] Address [address] [place] [address] Care Team Providers Care Cnc Field Service Engineer Name Role Phone Corin Skinner MD Primary Care Provider [phone] Encounter Details Date Type Department Care Team (Late st Contact Info) Description 07/11/2008 Before PRISM Converted Visit (Maple) [facility] - Maple conversion [address] [place] [address] Skyler Edwards [facility] [address] [place] [phone] Social History Tobacco Use Types Packs/Day Years Used Date Smoking Tobacco: Never Assessed Sex and Gender Information Value Date Recorded Sex Assigned at Not on file Gender Identity Not on file Sexual Orientation Not on file documented as of this encounter Progress Notes * Skyler Edwards MD - 01/28/2009 0614 EDT PROGRESS/FOLLOWUP NOTE - 07/11/2008 July 11, 2008 Yan Demarco M.D. [facility] [address] [place] [address], [address] [place] [address] 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 His stepmother and father accompanied him to the visit and provided the history. I recently saw Miguel Angel during his rehospitalization over the holidays. Parents were concerned regarding decreased responsiveness and hypothermia so they brought him into the hospital. He was hemodynamically stable but was felt to be slightly dehydrated. It is worth noting that hispresenting sodium was 145 and glucose was 69. The hypothermia and dehydration improved quickly with the warmed IV fluidsand he did receive 48 hours of stress dose steroids. A chest x-ray was normal and head CT scan was unchanged from baseline. He was kept in the hospital until blood cultures returned negative. Since his discharge home, parents have not had any concerns regarding decreased alertness but do feel that he is more stubborn and less motivated to carry out his daily activities. They note that this is a common pattern after hospitalization that will take several weeks to improve. However, theydid acknowledge that they are starting to feel burned out. They have multiple services in place but the decline in Miguel Angel's abilities, particularly since the end of the summer, has increased the strain on the family. They have hired a new CELL RELINER who is a male and are hoping that a male presence may have a greater impact on Miguel Angel. For the first time, they openly raised the question of possible long-t erm placement today in clinic. Parents have also noted that Miguel Angel's appetite seems to be decreased since the recent hospitalization. They are able to maintain his daily fluid intake of 50 ounces per day. They feel that his urine output is unchanged with four to five diaper changes per day. They do report that his urine appears to be more foul smelling as of late. They deny any hematuria, perceived dysuria, fevers, or concerns regarding pain. They continue to report difficulty sleeping through the night despite his usual medication cocktail. They have not noticed any changes in his skin, bowel movements, or temperature instability. The remainder of a thorough review of systems was noncontributory. Miguel Angel's current medications include: DDAVP 0.4 mcg subcutaneous b.i.d. 2. Levothyroxine 200 mcg p.o. daily. 3. Cortef 10 mg q.a.m., 5 mg every afternoon, 5 mg q.p.m. 4. Testosterone enanthate 200 mg IM every 21 days. 5. Potassium chloride 20 mEq p.o. t.i.d. 6. Vitamin D 800 International Units daily. 7. Multivitamin daily. 8. Quetiapine 400 mg p.o. daily. 9. Zonisamide 50 mg p.o. daily. 10. Temazepam 15 mg p.o. daily. 11. Modafinil 200 mg p.o. daily. note, it appears that Miguel Angel has not received a testosterone injection since his 05/2008 admission. On physical exam Miguel Angel appeared comfortable and in no distress. His weight was 71.1 kg which is 2.9kg down from his admission weight last week. Vital signs revealed a blood pressure of 94/62 with a resting pulse of 72. He did appear alert through the visitbut did require more prompting than usual to answer questions. He had moist mucous membranes and normal skin turgor. There was no palpable goiter. He was unable to track on visual exam. Cardiorespiratory exam was unremarkable. Abdominal exam was benign. Neurologic exam was notable for 2+ deep tendon reflexes and no tremor. Skin temperature,texture, and turgor were normal. Sexual development was rated as Devonte stage V for pubic hair. 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 While Miguel Angel's weight is down from his recent hospitalization he is clinically euvolemic on exam today. Based on parents reports it appears that the diabetes insipidus is well controlled with his current DDAVP regimen. It is worth noting that his parents do report a decreased appetite which may be contributing somewhat to the weight loss.Serum electrolytes were obtained and the results are pending. We will titrate his DDAVP or fluids based on these results. The foul-smelling urine is worth noting and given that he recently had a Tsang catheter placed I have requested a urinalysis and culture to be obtained by clean catch. 2. TSH deficiency. Miguel Angel is clinically euthyroid on his current levothyroxine dose. A repeat free T4 level was obtained and I will titrate his dose as necessary based on these results with the goal of keeping the free T4 level in the upper half range of normal. 3. ACTH deficiency. Miguel Angel is on an appropriate dose of physiologic hydrocortisone replacement. Parents are well aware of the indications for stress dose coverage. 4. LH/FSH deficiency. Miguel Angel's last testosterone injection was on 05/30/2008. He is prescribed testosterone enanthate 200 mg IM every 21 days. These doses are supposed to be given by the visiting nurse. Mother knows that [facility] has an order for these injections and so will call them to remind them of the importance of giving these doses consistently. 5. Growth hormone deficiency. Miguel Angel's parents are not interested in adult growth hormone replacement at this time. We have reviewed the potential benefits of this treatment on numerous occasions. 6. Bone health. Miguel Angel remains at risk for poor bone mineralization secondary to his limited weightbearing and untreated growth hormone deficiency (seeNo.5). He remains on an appropriate dose of vitamin D, particularly considering that the milk that he drinks is unfortified. His calcium intake from dairy and vitamin supplements is appropriate. We again reviewed the importance of regular weightbearing activities although it is worth noting that parents feel these are more difficult to achieve given Miguel Angel's apparent decreased motivation to participate in these activities. had a long discussion with parents today regarding their ability to cope with Miguel Angel's current degree of daily medical care. I encouraged them to discuss with you options regarding long-term placementif ever they should consider this in the future. I reminded them that there is no harm in preparingfor this option without necessarilycommitting to it. They have a followup appointment with Dr. Cheng today to review the implications of all his medications as well as the recent insult to the brain from the November illness which may be contributing to the behavioral changes that they have noted. I did explain that both testosterone deficiency and growth hormone deficiency may contribute to dec reased energy and mood. So, the importance of restarting the testosterone injections, as well as consideration for adult growth hormone replacement, was stressed. There are also several features of depression which parents are describing and I recommended that they follow up with you regarding these concerns. I will see Miguel Angel again in clinic in four months. Thank you for allowing me to participate in the care of this patient. Please do not hesitate to contact me if you have any additional questions or concerns. For complete details regarding the review of systems and physical exam findings, please see the Pediatric Endocrine intake form. ADDENDUM: Na 140, K 4.2. Remainder of BMP also normal. Free T4 1.7. Testosterone 28. Keep levothyroxine as is. [facility] needs to be more consistent with q21d administration of testosterone. Of note, the urinalysis was never obtained. Sincerely, Signed by Skyler Edwards MD 07/15/2008 15:58 Skyler Edwards MD Division of Pediatric Endocrinology [phone] - Skyler Edwards MD P - ROXI Job ID: [id number] Doc ID: [id number] cc: MD Yan Singh MD documented in this encounter Plan of Treatment Upcoming Encounters Date Type Department Care Team (Late st Contact Info) Description 09/09/2024 10:20 EST Office Visit [facility] Endocrinology - [address] [phone] Day Littlejohn MD PhD [address] [place] [phone] documented as of this encounter Visit Diagnoses Not on filedocumented in this encounter Care Teams Cnc Field Service Engineer Relationship Specialty Start Date End Date Corin Skinner MD [address] [place] [phone] PCP - General 10/24/08 08/21/09 documented as of this encounter
--- OUTSIDE RECORDS SUMMARY | 2024-03-05 15:47 | XMS_ITS | Encounter Summary ---
Author Organization [facility] Address [address] [place] [address] Care Team Providers Care Fulling Mill Operator Name Role Phone Corin Skinner MD Primary Care Provider [phone] Encounter Details Date Type Department Care Team (Late st Contact Info) Description 10/21/2008 Before PRISM Converted Visit (Maple) [facility] - Maple conversion [address] [place] [address] Christopher Ga MD [address] [place] [phone] Social History Tobacco Use Types Packs/Day Years Used Date Smoking Tobacco: Never Assessed Sex and Gender Information Value Date Recorded Sex Assigned at Not on file Gender Identity Not on file Sexual Orientation Not on file documented as of this encounter Plan of Treatment Upcoming Encounters Date Type Department Care Team (Late st Contact Info) Description 09/09/2024 10:20 EST Office Visit [facility] Endocrinology - [facility] [address] [place], [place] [phone] Day Littlejohn MD PhD [address] [facility] [address] [place] [address] documented as of this encounter Procedures Procedure Name Priority Date/Time Associated Diagnosis Comments MAGNESIUM Routine 10/21/2008 21:00 EDT documented in this encounter Results * (ABNORMAL) MAGNESIUM (10/21/2008 21:00 EDT) Magnesium 1.1(L) 1.7 - 2.8 mg/dl [facility] 10/21/2008 21:0 0 EDT 10/21/2008 21:17 EDT Christopher Ga MD CHEMISTRY & BLOOD G ORDERABLES Performing Organization Address City/State/[facility] Co de Phone Number [facility] [address] [place] [address] documented in this encounter Visit Diagnoses Not on filedocumented in this encounter Care Teams Fulling Mill Operator Relationship Specialty Start Date End Date Corin Skinner MD [address] [place] [phone] PCP - General 10/24/08 08/21/09 documented as of this encounter
--- OUTSIDE RECORDS SUMMARY | 2024-03-05 15:47 | XMS_ITS | Encounter Summary ---
Author Organization [facility] Address [address] [place] [address] Care Team Providers Care General Utility Maintenance Repairer Name Role Phone Yan Demarco MD Primary Care Provider [phone] Corin Skinner MD Primary Care Provider [phone] Akil Serrano MD Primary Care Provider [phone] Yossi Torres MD Primary Care Provider [phone] Emilee Cody MD Primary Care Provider + Ren Vaz MD Primary Care Provider [phone] Encounter Details Date Type Department Care Team (Late st Contact Info) Description 10/21/2008 Before PRISM Converted Visit (Maple) [facility] - Maple conversion [address] [place] [address] Slava Pineda MD Social History Tobacco Use Types Packs/Day Years Used Date Smoking Tobacco: Never Assessed Sex and Gender Information Value Date Recorded Sex Assigned at Not on file Gender Identity Not on file Sexual Orientation Not on file documented as of this encounter Plan of Treatment Upcoming Encounters Date Type Department Care Team (Late st Contact Info) Description 09/09/2024 10:20 EST Office Visit [facility] Endocrinology - [facility] [address] [place] [address] Day Littlejohn MD PhD [address] [facility] [address] [place] [address] documented as of this encounter Procedures Procedure Name Priority Date/Time Associated Diagnosis Comments PORTABLE CHEST 1 VIEW 10/21/2008 16:50 EDT documented in this encounter Results * PORTABLE CHEST 1 VIEW (10/21/2008 16:50 EDT) Anatomical Region Laterality Modality Other 10/21/2008 16:5 0 EDT Narrative 11/01/2008 2:38 EDT patient unresponsive, rule out infiltrating PORTABLE CHEST 1 VIEW ??Oct 21, 2008 4:50:00 PM Signs and Symptoms: ??patient unresponsive, rule out infiltrating. AP 10 degrees upright portable chest x-ray is compared with the prior examination dated May 19, 2008. The lung volumes are very low. There are subtle rounded opacities at the right base which might represent atelectasis. There are no findings to suggest pneumonia. Followup with good inspiration is suggested when the patient is able to do so. Impression: Very low lung volumes. Probably no acute process other than intimal atelectasis. Procedure Note Maxi Kirby MD - 11/01/2008 patient unresponsive, rule out infiltrating PORTABLE CHEST 1 VIEW Oct 21, 2008 4:50:00 PM Signs and Symptoms: patient unresponsive, rule out infiltrating. AP 10 degrees upright portable chest x-ray is compared with the prior examination dated May 19, 2008. The lung volumes are very low. There are subtle rounded opacities at the right base which might represent atelectasis. There are no findings to suggest pneumonia. Followup with good inspiration is suggested when the patient is able to do so. Impression: Very low lung volumes. Probably no acute process other than intimal atelectasis. Slava Pineda MD IMG DIAGNOSTIC IMAGI NG ORDERABLES documented in this encounter Visit Diagnoses Not on filedocumented in this encounter Care Teams General Utility Maintenance Repairer Relationship Specialty Start Date End Date Yan Demarco MD [address] [place] [phone] PCP - General 08/22/09 02/20/10 Corin Skinner MD [address] [place] [phone] PCP - General 10/24/08 08/21/09 Akil Serrano MD [address] [facility] [address] [place], [place] [address] PCP - General 02/21/10 04/16/11 Yossi Torres MD [address] [place] [address] [address] [place] [phone] PCP - General 04/17/11 03/14/16 Emilee Cody MD [address] [place] [address] [address] [place] [phone] PCP - General 03/15/16 09/29/18 Ren Vaz MD [address] [place] [address] [address] [place], [place] 162159 PCP - General 09/30/18 documented as of this encounter
--- OUTSIDE RECORDS SUMMARY | 2024-03-05 15:47 | XMS_ITS | Encounter Summary ---
Author Organization [facility] Address [address] [place] [address] Care Team Providers Care Home Security Professional Name Role Phone Corin Skinner MD Primary Care Provider Encounter Details Date Type Department Care Team (Late st Contact Info) Description 08/13/2008 Office Visit [facility] [place] [facility] [address] [place] [address] Slava Pineda MD Social History Tobacco Use Types Packs/Day Years Used Date Smoking Tobacco: Never Assessed Sex and Gender Information Value Date Recorded Sex Assigned at Not on file Gender Identity Not on file Sexual Orientation Not on file documented as of this encounter Progress Notes * Slava Pineda MD - 08/18/2009 1549 EST Department - Physician Summary Registration Date/Time: 08/13/2008 10:41 Time Seen; upon arrival. Arrived- By private vehicle. Historian- patient. HISTORY OF PRESENT ILLNESS Chief Complaint: DECREASED MENTAL STATUS and CHANGED MENTAL STATUS. Pt with traumatic brain injury and panhypopit. has baseline expressive aphasia and family notes he is twitching, as he does before a seizure, had some abd pain and is acting differently.. This started today and is still present. Itwas gradual in onset. He is described as having decreased responsiveness. No change in diabetic routine, alcohol recently, recent drug use or medication given prior to arrival. Dextro stick was not low prior to arrival. He has had weakness. No numbness or recent fall. No difficulty walking. Usually has normal mobility. Patient has not had similar symptoms previously. Not recently seen/assessed. REVIEW OF SYSTEMS The patient has had nasal congestion. No fever, headache, head injury, dizziness or chest pain. No difficulty breathing, cough, sputum production, blurred vision or sore throat. No abdominal pain, nausea, diarrhea, black stools or difficultywith urination. No skin rash, joint pain, vomiting or backpain. PAST HISTORY Seizures. (Guillen hypopit., Diabetes insipidus). No history of previous surgery. Medications: The patient's medications have been reviewed. Allergies: The patient's allergies have been reviewed. SOCIAL HISTORY Nonsmoker. No alcohol use. Is a local resident. ADDITIONAL NOTES The nursing notes have been reviewed. PHYSICAL EXAM Appearance: Alert. Vital Signs: Have been reviewed. Head: Head atraumatic. Eyes: Pupils equal, round and reactive to light. ENT: Normal ENT inspection. Airway intact. Moist mucous membranes. Pharynx normal. Neck: Normal inspection. Neck supple. CVS: Normal heart rate and rhythm. Heart sounds normal. Pulses normal. Respiratory: No respiratory distress. Breath sounds normal. Abdomen: Abdomen soft and nontender. No organomegaly. Back: Normal inspection. Skin: Normal skin color and turgor. Skin warm and dry. No rash. Extremities: Extremities exhibit normal ROM. No lower extremity edema. Neuro: Alert. Mood/affect normal. Dysphasia. Cranial nerves normal (as tested). No motor deficit. No sensory deficit. Reflexes normal. LABS, X-RAYS, AND EKG CBC: WBC 2.3. Segs 56. Lymphs 38. Monos 3. Hgb 14. HCT 40. Platelets 202. Chemistries: Normal except as follows. Mild hypernatremia- 153. K- 4.3. Cl- 113. HCO3-26. Glucose -68. BUN- 17. Cr- 0.9. Total protein normal. Albumin normal. Total bilirubin normal. AST normal. ALTnormal. Alkaline phosphatase normal. Calcium normal 9.3. Normal PO4-4.4. Lipase normal 97. Normal Mg- 1.8. Pulse Oximetry: O2 saturation- 100% (FIO2 - room air). Interpretation: normal. PROGRESS AND PROCEDURES Discussed case with on-call resident, Dr. Turcios 11:00. Reviewed test results and need for additionalwork-up. Agreed upon treatment plan and need for patient follow-up. Physician will see patient in ED. Mother and father counseled in person regarding the patient's test results and diagnosis. Additional history sought from mother and father. Old medical records reviewed. Disposition: Admitted. Placed in observation status. Condition: good. IMPRESSION Changed mental status. (Electronically signed by Slava Pineda M.D. 08/13/2008 16:19) Addenda for MIGUEL ANGEL MASON JR VisitID: [id number] Date: 08/13/2008 08/13/2008 10:30 Dr. Amaro refers pt to ed for eval. CC: Lethargy, ?sz. Hx: Guillen- Hypopituitarism Page Peds on arrival signed by Jose Armando Palmer - 08/13/2008 10:30) Department - Nursing Summary Registration Date/Time: 08/13/2008 10:41 TRIAGE Initial Assessment Triage time 10:41. Acuity: LEVEL 3. BP: 122 / 78. HR: 140. RR: 22. Temp: 35.3 tympanic. Alert. --1044 Juan QuezadaN.. Medications (Melatonin). --1403 Juan HandyN. Hydrocortisone Tablets: 10mg (at 7am 5mg at noon and 430pm). Levothyroxine: 200 mcg daily. Multivitamins. Potassium: 20meq. Quetiapine (400mg). Ranitidine: 150 mg. Restoril: 15mg daily. Vitamin D- (cholecalciferol). (Zonogram 50mg daily Desmopressin .4mcg subq). (Modafinil 200mg daily). --1415 Juan HandyN.. ). --1129 Juan QuezadaN.. Allergies (lopid). --1044 Juan QuezadaN.. History Chief Complaint: (seizure?). This started today. Pain level: unable to quantify. (pt has had facial and body twitching which started about 20 min ago, increased weakness. Pt has these symptoms when he is going to have grand mal seizure. ). No fever. Treatment WRAPPER SHEETER: None. PAST HX: (traumatic brain injury, seizures). SOCIAL HX: Nonsmoker. No alcohol use. No report of abuse. Arrived by private vehicle. Historian: family. --1044Kathy Gold R.N.. NURSING PROGRESS NOTES (peds resident paged). --1049 Anabelle Perez R.N. (peds returned page and aware patient is in the ED). --1050 Anabelle Perez R.N. (Peds at bedside for evaluation, Father has left to go home). --1223 Lucille Carlson R.N. POTASSIUM CHLORIDE 30 meq extended release PO. (Hydrocortisone 5mg PO). --1400 Rachel Reynolds R.N., [facility] BP: 118/65. HR: 70. O2 saturation: 100% room air. --1530 Lucille Carlson R.N. (Patient's diaper checked, does not require changing at present). --1534 Lucille Carlson R.N. (Diaper changed prior to transfer to floor). --1608 Lucille Carlson R.N.. IV / I&O Flowsheet IV Site #1. IV access: right antecubital space. IV start unsuccessful, with 20g angiocath using aseptic technique; one attempt. --1223 Lucille Carlson R.N. IV Site #1. IV started in ED with 20g angiocath using aseptic technique, with good blood return; one attempt. Saline lock placed and flushed with 5 mL normal saline; (right FA by DIE FITTER, rainbow to lab (first attempt unsuccessful by DIE FITTER in right AC)). --1259 Nyasia Morelos R.N., [facility] IV bag #1 of 500 mL NS; rate = wide open. --1441 Rachel Reynolds R.N., [facility] IV fluids discontinued. IV bag #1. INTAKE: 500 mL. --1545 Lucille Carlson R.N.. DISPOSITION / DISCHARGE Report was given (Latrice ROMERO). Transported via stretcher by tech with IV. Admitted to pediatrics. --1546 Lucille Carlson R.N.. Kathy Perez R.N. Lucille Morelos R.N., [facility] Rachel Reynolds R.N., [facility] Locked/Released at 08/13/2008 16:08 by Lucille Carlson R.N. documented in this encounter Plan of Treatment Upcoming Encounters Date Type Department Care Team (Late st Contact Info) Description 09/09/2024 10:20 EST Office Visit [facility] Endocrinology - [address] [phone] Day Littlejohn MD PhD [address] [facility] [address] [place] [phone] documented as of this encounter Visit Diagnoses Not on filedocumented in this encounter Care Teams Home Security Professional Relationship Specialty Start Date End Date Corin Skinner MD [address] [place] [phone] PCP - General 10/24/08 08/21/09 documented as of this encounter
--- OUTSIDE RECORDS SUMMARY | 2024-03-05 15:47 | XMS_ITS | Encounter Summary ---
Author Organization [facility] Address [address] [place] [address] Care Team Providers Care Coil Tester Name Role Phone Corin Skinner MD Primary Care Provider Encounter Details Date Type Department Care Team (Late st Contact Info) Description 10/21/2008 Before PRISM Converted Visit (Maple) [facility] - [place] conversion [address] [place] [address] Christopher Ga MD [address] [place] [phone] Social History Tobacco Use Types Packs/Day Years Used Date Smoking Tobacco: Never Assessed Sex and Gender Information Value Date Recorded Sex Assigned at Not on file Gender Identity Not on file Sexual Orientation Not on file documented as of this encounter Plan of Treatment Upcoming Encounters Date Type Department Care Team (Late st Contact Info) Description 09/09/2024 10:20 EST Office Visit [facility] Endocrinology - [facility] [address] [place], [place] [phone] Day Littlejohn MD PhD [address] [facility] [address] [place] [phone] documented as of this encounter Procedures Procedure Name Priority Date/Time Associated Diagnosis Comments GLUCOSE, GLUCOMETER Routine 10/21/2008 2 1:18 EDT documented in this encounter Results * GLUCOSE, GLUCOMETER (10/21/2008 21:18 EDT) Glucose, Fingerstick 95 70 - 100 mg/dl [facility] Refinery Superintendent ID [id number] Test Performed by Nursing Services [facility] 10/21/2008 21:1 8 EDT 10/21/2008 23:29 EDT Christopher Ga MD CHEMISTRY & BLOOD G ORDERABLES Performing Organization Address City/State/[facility] Co de Phone Number [facility] [address] [place] [address] documented in this encounter Visit Diagnoses Not on filedocumented in this encounter Care Teams Coil Tester Relationship Specialty Start Date End Date Corin Skinner MD [address] [place] [phone] PCP - General 10/24/08 08/21/09 documented as of this encounter
--- OUTSIDE RECORDS SUMMARY | 2024-03-05 15:47 | XMS_ITS | Encounter Summary ---
Author Organization [facility] Address [address] [place] [address] Care Team Providers Care Oil Prospecting Observer Name Role Phone Unavailable Primary Care Provider Unavailabl e Encounter Details Date Type Department Care Team (Late st Contact Info) Description 07/12/2008 10:23 EST - 07/12/2008 11:59 EST Hospital Encounter [facility] [address] [place] [address] [facility] [address] [place] [phone] Discharge Disposition: Auto Discharge Social History Tobacco Use Types Packs/Day Years Used Date Smoking Tobacco: Never Assessed Sex and Gender Information Value Date Recorded Sex Assigned at Not on file Gender Identity Not on file Sexual Orientation Not on file documented as of this encounter Discharge Disposition Disposition Code Departure Means Destination Auto Discharge documented in this encounter Plan of Treatment Upcoming Encounters Date Type Department Care Team (Late st Contact Info) Description 09/09/2024 10:20 EST Office Visit [facility] Endocrinology - [facility] [address] [place] [address] Day Littlejohn MD PhD [address] [place] [address] [address] [place] [phone] Pending Results Name Type Priority Associated Diagnoses Date /Time MISCELLANEOUS TEST, OTHER Lab Routine 07/12/2008 12:07 EST Scheduled Orders Name Type Priority Associated Diagnoses Orde r Schedule MISCELLANEOUS TEST, OTHER Lab Routine For medications that can be administered at any time during the hospitalization for visit such as immunizations. for 1 Occurrences starting 12/19/2008 documented as of this encounter Procedures Procedure Name Priority Date/Time Associated Diagnosis Comments HOLD SST Routine 10/21/2008 17:54 EDT HOLD PURPLE TOP Routine 10/21/2008 17:54 EDT HOLD GREEN TOP Routine 10/21/2008 17:54 EDT HOLD BLUE TOP Routine 10/21/2008 17:54 EDT SCREENING GLUCOSE Routine 08/13/2008 11: 13 EST HOLD GREEN TOP Routine 08/13/2008 11:13 EST HOLD BLUE TOP Routine 08/13/2008 11:13 EST COMPLETE BLOOD COUNT AND DIFFERENTIAL Routine 08/13/2008 11:13 EST BUN Routine 08/13/2008 11:13 EST PHOSPHORUS Routine 08/13/2008 11:13 EST MAGNESIUM Routine 08/13/2008 11:13 EST LIPASE Routine 08/13/2008 11:13 EST CREATININE Routine 08/13/2008 11:13 EST CALCIUM Routine 08/13/2008 11:13 EST HEPATIC FUNCTION PANEL (ALB,ALK PHOS,ALT,AST,DBIL,TOT MORGAN,TOT PROT) Routine 08/13/2008 11:13 EST ELECTROLYTES Routine 08/13/2008 11:13 EST T4 FREE Routine 07/12/2008 10:44 EST TESTOSTERONE Routine 07/12/2008 10:44 EST BASIC METABOLIC PANEL (BMP) Routine 07/12/2008 10:44 EST documented in this encounter Results * HOLD SST (10/21/2008 17:54 EDT) Hold SST Hold for further testing. Specimen will be held for 5 days. [facility] 10/21/2008 17:5 4 EDT 10/21/2008 17:54 EDT Default Emergency MD LAB INFO SERVICE AN D SUPPORT & PHONE RESULT Performing Organization Address [facility] Co de Phone Number [facility] [address] [place] [address] * HOLD PURPLE TOP (10/21/2008 17:54 EDT) Hold Purple Top EDTA for hematology will be discarded after 48 hours, differential not available after 12 hours. [facility] 10/21/2008 17:5 4 EDT 10/21/2008 17:54 EDT Default Emergency MD LAB INFO SERVICE AN D SUPPORT & PHONE RESULT Performing Organization Address [facility] de Phone Number [facility] [address] [place] [address] * HOLD GREEN TOP (10/21/2008 17:54 EDT) Hold Green Top Hold for further testing. Specimen will be held for 5 days. [facility] 10/21/2008 17:5 4 EDT 10/21/2008 17:54 EDT Default Emergency MD LAB INFO SERVICE AN D SUPPORT & PHONE RESULT Performing Organization Address [facility] de Phone Number [facility] [address] [place] [address] * HOLD BLUE TOP (10/21/2008 17:54 EDT) Hold Blue Top Sample for coagulation will be discarded after 4 hours [facility] 10/21/2008 17:5 4 EDT 10/21/2008 17:54 EDT Default Emergency MD LAB INFO SERVICE AN D SUPPORT & PHONE RESULT Performing Organization Address [facility] de Phone Number [facility] [address] [place] [address] * HOLD GREEN TOP (08/13/2008 11:13 EST) Hold Green Top Hold for further testing. Specimen will be held for 5 days. [facility] 08/13/2008 11:1 3 EST 08/13/2008 12:58 EST Default Emergency MD LAB INFO SERVICE AN D SUPPORT & PHONE RESULT Performing Organization Address [facility] Phone Number [facility] [address] [place] [address] * HOLD BLUE TOP (08/13/2008 11:13 EST) Hold Blue Top Sample for coagulation will be discarded after 4 hours [facility] 08/13/2008 11:1 3 EST 08/13/2008 12:58 EST Default Emergency MD LAB INFO SERVICE AN D SUPPORT & PHONE RESULT Performing Organization Address [facility] Phone Number [facility] [address] [place] [address] * PHOSPHORUS (08/13/2008 11:13 EST) Phosphorus 4.4 2.5 - 4.5 mg/dl [facility] 08/13/2008 11:1 3 EST 08/13/2008 12:58 EST Default Emergency MD CHEMISTRY & BLOOD G ORDERABLES Performing Organization Address [facility] Phone Number [facility] [address] [place] [address] * MAGNESIUM (08/13/2008 11:13 EST) Magnesium 1.8 1.7 - 2.8 mg/dl [facility] 08/13/2008 11:1 3 EST 08/13/2008 12:58 EST Default Emergency MD CHEMISTRY & BLOOD G ORDERABLES Performing Organization Address [facility] Phone Number [facility] [address] [place] [address] * LIPASE (08/13/2008 11:13 EST) Lipase 97 0 - 250 U/L [facility] 08/13/2008 11:1 3 EST 08/13/2008 12:58 EST Default Emergency MD CHEMISTRY & BLOOD G ORDERABLES Performing Organization Address [facility] Phone Number [facility] [address] [place] [address] * (ABNORMAL) SCREENING GLUCOSE (08/13/2008 11:13 EST) Glucose, Screening 68(L) 70 - 100 mg/dl [facility] 08/13/2008 11:1 3 EST 08/13/2008 12:58 EST Default Emergency MD CHEMISTRY & BLOOD G ORDERABLES Performing Organization Address [facility] Phone Number [facility] [address] [place] [address] * CREATININE (08/13/2008 11:13 EST) Creatinine 0.90 0.7 - 1.5 mg/dl [facility] GFR, Calculated >60 ml/min/1.7 3m2 [facility] 08/13/2008 11:1 3 EST 08/13/2008 12:58 EST Default Emergency MD CHEMISTRY & BLOOD G ORDERABLES Performing Organization Address [facility] Phone Number [facility] [address] [place] [address] * BUN (08/13/2008 11:13 EST) BUN 17 10 - 26 mg/dl [facility] 08/13/2008 11:1 3 EST 08/13/2008 12:58 EST Default Emergency MD CHEMISTRY & BLOOD G ORDERABLES Performing Organization Address [facility] Co de Phone Number [facility] [address] [place] [address] * CALCIUM (08/13/2008 11:13 EST) Calcium 9.5 8.5 - 10.5 mg/dl [facility] Calculated Calcium 9.3 8.5 - 10.5 mg/dl [facility] 08/13/2008 11:1 3 EST 08/13/2008 12:58 EST Default Emergency MD CHEMISTRY & BLOOD G ORDERABLES Performing Organization Address [facility] Phone Number [facility] [address] [place] [address] * LIVER FUNCTION TESTS (08/13/2008 11:13 EST) Albumin 4.6 3.4 - 4.9 g/dl [facility] Total Protein 8.0 6.5 - 8.3 g/dl [facility] Alkaline Phosphatase 120 38 - 126 U/L [facility] ALT 59 21 - 72 U/L [facility] AST 36 15 - 46 U/L [facility] Unconjugated Bilirubin 0.4 0.1 - 1.1 mg/dl [facility] Conjugated Bilirubin 0.0 0.0 - 0.3 mg/dl [facility] Bilirubin, Total <0.5 0.2 - 1.3 mg/dl [facility] 08/13/2008 11:1 3 EST 08/13/2008 12:58 EST Default Emergency MD CHEMISTRY & BLOOD G ORDERABLES Performing Organization Address [facility] Phone Number [facility] [address] [place] [address] * (ABNORMAL) ELECTROLYTES (08/13/2008 11:13 EST) Sodium 153(H) 136 - 145 mEq/L [facility] Potassium 4.3 3.5 - 5.0 mEq/L [facility] Chloride 113(H) 96 - 110 mEq/L [facility] CO2 26 24 - 32 mEq/L [facility] 08/13/2008 11:1 3 EST 08/13/2008 12:58 EST Default Emergency MD CHEMISTRY & BLOOD G ORDERABLES [facility] [address] [place] [address] * (ABNORMAL) HEMAGRAM AND DIFFERENTIAL (08/13/2008 11:13 EST) WBC 2.32(L) 4.0 - 10.4 K/cmm [facility] RBC 5.19 4.36 - 5.78 M/cmm [facility] Hemoglobin 13.7(L) 13.8 - 17.3 gm/dl [facility] HCT 39.9 39.5 - 50.2 % [facility] MCV 77(L) 81 - 95 fl [facility] MCH 26.3(L) 27.6 - 33.0 pg [facility] MCHC 34.2 32.8 - 36.4 gm/dl [facility] PLT 202 141 - 320 K/cmm [facility] RDW-CV 16.2(H) 11.8 - 14.1 % [facility] Neutrophils 56.0 45.5 - 79.7 % [facility] Lymphocytes 38.0 15.0 - 46.8 % [facility] % Atyp Lymphs 1.0 % [facility] Monocytes 3.0 1.8 - 12.0 % [facility] Eosinophils 1.0 0.6 - 6.9 % [facility] Basophils 1.0 0.2 - 1.4 % [facility] ABS Neutrophils 1.31(L) 2.20 - 8.85 K/cmm [facility] ABS Lymphs 0.88(L) 1.09 - 3.30 K/cmm [facility] ABS Atyp Lymphs 0.02 K/cmm [facility] ABS Monocytes 0.07(L) 0.1 - 0.8 K/cmm [facility] ABS Eosinophils 0.02(L) 0.03 - 0.61 K/cmm [facility] ABS Basophils 0.02 0.01 - 0.11 K/cmm [facility] RBC Morphology 1+ Anisocytosis 2+ Microcytes [facility] Type of Diff: Manual [facility] 08/13/2008 11:1 3 EST 08/13/2008 12:58 EST Default Emergency MD PACKAGES & DNA PROB E ORDERABLES Performing Organization Address [facility] Co de Phone Number [facility] [address] [place] [address] * (ABNORMAL) TESTOSTERONE (07/12/2008 10:44 EST) Pathologist [facility] Testosterone, Total 28(L) 241 - 827 ng/dL [facility] 07/12/2008 10:4 4 EST 07/12/2008 11:37 EST Skyler Edwards [facility] CHEMIS TRY & BLOOD GAS ORDERABLES Performing Organization Address [facility] de Phone Number [facility] [address] [place] [address] * T4 FREE (07/12/2008 10:44 EST) Free T4 1.7 0.8 - 1.8 ng/dL [facility] 07/12/2008 10:4 4 EST 07/12/2008 11:37 EST Skyler Edwards [facility] CHEMIS TRY & BLOOD GAS ORDERABLES Performing Organization Address [facility] Co de Phone Number [facility] [address] [place] [address] * BASIC METABOLIC PANEL (07/12/2008 10:44 EST) Sodium 140 136 - 145 mEq/L [facility] Potassium 4.2 3.5 - 5.0 mEq/L [facility] Chloride 98 96 - 110 mEq/L [facility] CO2 26 24 - 32 mEq/L [facility] BUN 19 10 - 26 mg/dl [facility] Creatinine 0.82 0.7 - 1.5 mg/dl [facility] GFR, Calculated >60 ml/min/1.7 3m2 [facility] Calcium 10.1 8.5 - 10.5 mg/dl [facility] Calculated Calcium 9.4 8.5 - 10.5 mg/dl [facility] Glucose, Serum 72 70 - 100 mg/dl [facility] Fasting? No [facility] 07/12/2008 10:4 4 EST 07/12/2008 11:37 EST Skyler Edwards [facility] CHEMIS TRY & BLOOD GAS ORDERABLES [facility] [address] [place] [address] documented in this encounter Visit Diagnoses Not on filedocumented in this encounter
--- OUTSIDE RECORDS SUMMARY | 2024-03-05 15:47 | XMS_ITS | Encounter Summary ---
Author Organization [facility] Address [address] [place] [address] Care Team Providers Care Pier Worker Name Role Phone Corin Skinner MD Primary Care Provider [phone] Encounter Details Date Type Department Care Team (Late st Contact Info) Description 10/21/2008 Before PRISM Converted Visit (Maple) [facility] Adult Primary Care - [address] [address] Unknown, Provider, Social History Tobacco Use Types [...] Office Visit [facility] Endocrinology - [address] [address] Day Littlejohn MD PhD [address] [facility] [address] [place] [address] documented as of this encounter Procedures Procedure Name Priority Date/Time Associated Diagnosis Comments GLUCOSE, GLUCOMETER Routine 10/21/2008 1 7:16 EDT documented in this encounter Results * (ABNORMAL) GLUCOSE, GLUCOMETER (10/21/2008 17:16 EDT) Glucose, Fingerstick 166(H) 70 - 100 mg/dl [facility] Energy And Sustainability Manager ID [id number] Test Performed by Nursing Services [facility] 10/21/2008 17:1 6 EDT 10/21/2008 17:33 EDT Provider Unknown CHEMISTRY & BLOOD GA S ORDERABLES Performing Organization Address City/State/[facility] Co de Phone Number [facility] [address] [place] [address] documented in this encounter Visit Diagnoses Not on filedocumented in this encounter Care Teams Pier Worker Relationship Specialty Start Date End Date Corin Skinner MD [address] [place] [phone] PCP - General 10/24/08 08/21/09 documented as of this encounter
--- OUTSIDE RECORDS SUMMARY | 2024-03-05 15:47 | XMS_ITS | Encounter Summary ---
Author Organization [facility] Address [address] [place] [address] Care Team Providers Care Director Of Marketing Analytics Name Role Phone Corin Skinner MD Primary Care Provider [phone] Encounter Details Date Type Department Care Team (Late st Contact Info) Description 10/21/2008 Before PRISM Converted Visit (Maple) [facility] - [place] conversion [address] [place] [address] Christopher Ga MD [address] [place] [phone] Social History Tobacco Use Types Packs/Day [...] Office Visit [facility] Endocrinology - [facility] [address] [place], [place] [phone] Day Littlejohn MD PhD [address] [facility] [address] [place] [address] documented as of this encounter Procedures Procedure Name Priority Date/Time Associated Diagnosis Comments CALCIUM Routine 10/21/2008 21:00 EDT documented in this encounter Results * (ABNORMAL) CALCIUM (10/21/2008 21:00 EDT) Calcium 8.4(L) 8.5 - 10.5 mg/dl [facility] Calculated Calcium 9.9 8.5 - 10.5 mg/dl [facility] 10/21/2008 21:0 0 EDT 10/21/2008 21:17 EDT Christopher Ga MD CHEMISTRY & BLOOD G ORDERABLES [facility] [address] [place] [address] documented in this encounter Visit Diagnoses Not on filedocumented in this encounter Care Teams Director Of Marketing Analytics Relationship Specialty Start Date End Date Corin Skinner MD [address] [place] [phone] PCP - General 10/24/08 08/21/09 documented as of this encounter
--- OUTSIDE RECORDS SUMMARY | 2024-03-05 15:47 | XMS_ITS | Encounter Summary ---
Author Organization [facility] Address [address] [place] [address] Care Team Providers Care Associate Consulting Engineer Name Role Phone Corin Skinner MD Primary Care Provider [phone] Encounter Details Date Type Department Care Team (Late st Contact Info) Description 10/21/2008 Before PRISM Converted Visit (Maple) [facility] - Maple conversion [address] [place] [address] Emergency, MD Diya Social History Tobacco Use [...] Office Visit [facility] Endocrinology - [address] [phone] Day Littlejohn MD PhD [address] [place] [address] [address] [place] [phone] documented as of this encounter Procedures Procedure Name Priority Date/Time Associated Diagnosis Comments T4 FREE Routine 10/21/2008 17:54 EDT documented in this encounter Results * T4 FREE (10/21/2008 17:54 EDT) Free T4 1.6 0.8 - 1.8 ng/dL [facility] 10/21/2008 17:5 4 EDT 10/21/2008 17:54 EDT Default Emergency MD CHEMISTRY & BLOOD G ORDERABLES Performing Organization Address City/State/[facility] Co de Phone Number [facility] [address] [place] [address] documented in this encounter Visit Diagnoses Not on filedocumented in this encounter Care Teams Associate Consulting Engineer Relationship Specialty Start Date End Date Corin Skinner MD [address] [place] [phone] PCP - General 10/24/08 08/21/09 documented as of this encounter
--- OUTSIDE RECORDS SUMMARY | 2024-03-05 15:47 | XMS_ITS | Encounter Summary ---
Author Organization [facility] Address [address] [place] [address] Care Team Providers Care Historian Research Assistant Name Role Phone Yan Demarco MD Primary Care Provider [phone] Corin Skinner MD Primary Care Provider [phone] Encounter Details Date Type Department Care Team (Late st Contact Info) Description 10/21/2008 Office Visit [facility] [place] conversion [address] [place] [address] Slava Pineda MD Social History Tobacco Use Types Packs/Day Years Used Date Smoking Tobacco: Never Assessed Sex and Gender Information Value Date Recorded Sex Assigned at Not on file Gender Identity Not on file Sexual Orientation Not on file documented as of this encounter Progress Notes * Slava Pineda MD - 10/14/2009 9233 EDT Department - Physician Summary Registration Date/Time: 10/21/2008 14:55 Time Seen; upon arrival. Arrived- By ambulance. Historian- EMS personnel. History limited by altered mental status. PhysicalExam limited by altered mental status. HISTORY OF PRESENT ILLNESS Chief Complaint: DECREASED MENTAL STATUS. Pt found by dad with 3 days of decreased MS. sent from [facility] after being found hyponatremic and hypothermic has been off steroids.. This started several days ago and is still present. It was gradual in onset. He has been disoriented and is described as having decreased responsiveness. He was found unresponsive. He has had weakness. Usually is alert and oriented X3 and usually has normal mobility. Patient has not had similar symptoms previously. The patient was seen recently at another facility in the emergency department. REVIEW OF SYSTEMS Unobtainable due to patient's altered mental status. PAST HISTORY Seizures. brain. Medications: The patient's medications have been reviewed. Allergies: The patient's allergies have been reviewed. SOCIAL HISTORY Nonsmoker. No alcohol use. Is a local resident. ADDITIONAL NOTES The nursing notes have been reviewed. PHYSICAL EXAM Appearance: Lethargic. Vital Signs: Have been reviewed. Head: Head atraumatic. Eyes: Pupils equal, round and reactive to light. ENT: Normal ENT inspection. Airway intact. Moist mucous membranes. Pharynx normal. Neck: Normal inspection. Neck supple. CVS: Bradycardia. Heart sounds normal. Pulses normal. Respiratory: No respiratory distress. Breath sounds normal. Abdomen: Abdomen soft and nontender. No organomegaly. Back: Normal inspection. Skin: Normal skin color and turgor. Skin warm and dry. No rash. Extremities: Extremities exhibit normal ROM. No lower extremity edema. Neuro: Altered mental status: stuporous. No motor deficit. Reflexes normal. LABS, X-RAYS, AND EKG EKG: Bradycardia (45). First-degree atrioventricular block. Non-specific ST segment / T wave abnormalities. Changes present when compared to prior EKG. 05/10/08. The study has been independently viewed by me. The study has been interpreted contemporaneously by me. The EKG appears to be a good tracing. (bernstein wave). Chest X-ray: No acute disease. Infiltrate in the right lower lobe. Normal lung markings present. Normal heart size. Mediastinum normal. Great vessels normal. Soft tissue normal. No infiltrate. No fracture. No bony lesion present. Views: AP (portable). Technique: poor inspiration. The X-rays were interpreted by the radiologist and contemporaneously by me and discussed with the radiologist. CT Head: No acute changes. No bony abnormalities, no hemorrhage, no intracranial mass, no midline shift and no hydrocephalus. No atrophy. Head CT performed without contrast. The study was interpretedby the radiologist and contemporaneously by me and discussed with the radiologist. Bedside Tests: Glucose - 166. CBC: CBC is normal. Chemistries: Normal except as follows. Na- 120. HCO3-20. Glucose. BUN. Cr. Mg- 1.8. Coagulation Studies: D-dimer. INR 1.2. ABG: pH: 7.33/ pCO2: 42/ pO2: 516/ HCO3: 24. Interpretation: acidosis. PROGRESS AND PROCEDURES E.D. Course: D-50 IVP: 25 gm. Pt received stress dose steroid at [facility] (D10 at 60 cc/hr). . Critical care performed (50 minutes). Time is exclusive of separately billable procedures. Time includes: direct patient care, patient reassessment, coordination of patient care, interpretation of data (laboratory data, arterial blood gases, chest xrays and prior electrocardiograms), review of patient's medical records, medical consultation and documentation of patient care. Discussed case with on-call physician, Dr. Parr. Reviewed test results and need for additional work-up. Agreed upon treatment plan and need for patient follow- up. Physician will see patient in ED. Patient counseled in person regarding the patient's test results and diagnosis. Additional history sought from patient. Old ED records reviewed. Disposition: Admitted to Pediatric Intensive Care Unit. Condition: guarded. CLINICAL IMPRESSION Changed mental status. Hypotension. Hypothermia. (Electronically signed by Slava Pineda M.D. 10/21/2008 18:43) Addenda for YUEYEFRI MIGUEL ANGEL HODGE VisitID: [id number] Date: 10/21/2008 10/21/2008 14:[address] JUAREZ. PT COMING BY AMBULANCE FROM [facility] FOR ED EVAL. PAGE PED ON ARRIVAL. signed by Landy Rosas - 10/21/2008 14:56) 10/21/2008 15:[address] ONTIVEROS. PT COMING FROM [facility]. HYPOTHERMIC R TEMP 87.4 HYPONAUTREMIC NA 120. SP BRACITURUM? 2004. SZ. POORLY RESPONSIVE PROBABLE SZ SHAKING PRESENTLY COLD. RESPONSIVE TO PAIN. 88/53P 47-52. REFERRING RN PIA. RN TAKING NOTE JOHN signed by Landy Garcia 10/21/2008 15:51) Department - Nursing Summary Registration Date/Time: 10/21/2008 14:55 TRIAGE Initial Assessment Triage time 16:16. Acuity: LEVEL 4. BP: 51. HR. RR: 12. Temp: 32.1 rectal. O2 saturation: 100% (nonrebreather mask at 10 liters/minute). --1638 Philippe Healy R.N. Acuity: LEVEL 2. --1703 Philippe Healy R.N.. Medications (Dessmopressin 4mcg SC BID, Hydrocotisone 5mg noon and donna: 10mg in am, Levothyroxine 0.2mg daily, Modafinil 200mg daily, MVI adult done daily,KDUR 20meq TID, Quetiapine 400mg daily, Ranitidine 150mgdaily, Temazepam 15mg daily, Zonegran 50mg daily.). --1703 Philippe Healy R.N.. Allergies (Lopid). --1703 Philippe Healy R.N.. History This started today. (unable to determine as pt unresponsive). Treatment PLYCOR OPERATOR: (Solucortef 100mg IV). Arrived by EMS. Historian: EMS. (Pt presented to [facility] ED with hypotension/ hypothermia and unresponsive. Pt transfered to [facility] ED for pediatric/ neuro consult.). --1638 Philippe Healy R.N. 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 --1703 Philippe Healy R.N.. PHYSICAL ASSESSMENT To room via stretcher. Patient gowned. Alertness is decreased. The patient is in severe distress. Skin is pale. Skin is cool. (Multiple bruises to chest and buttocks. Errythemic circular blanching patches with white center noted to back and hips.). --1654 Philippe Healy R.N.. NURSING PROGRESS NOTES Pulse oximeter applied. IV started prior to arrival: #1 site, right hand and left hand, 22g angiocath, one attempt. Fluid infusing - 1000 mL bag NS; rate = wide open. (warmed fluid). Finger stick glucose: 61. Patient gowned. 16 fr morse catheter attached to bedside drainage bag (PLYCOR OPERATOR). (Dr. Pineda at bedside to assess pt. Lumbar punture attempted, no sample obtained. Dextrose 50 amp administered. Beer hugger applied. CXR done at bedside. ABG : 7.34, 42,516,24, Be -3, Sodium 121, K 4.6, HCT 31 per RT.). --1648 Philippe Healy R.N. BP: 108 / 58. HR: 1 degree HB (bradycardic). RR: 12. O2 saturation: 100% (nonrebreather mask at 10 liters/minute). (Dr. Parr (pediatric resident) at bedside to assess pt. ). --1655 Philippe Healy R.N. BP: 107 / 70. HR: 4 regular. RR: 11. O2 saturation: 100% (nonrebreather mask at 10 liters/minute). Urine collected; sample sent to lab for drug screen (Urine collected from morse catheter. Morse emptied for 100cc clear yellow urine.). --1712 Philippe Healy R.N. (EKG performed by [employer], showed to Dr. Pineda.). --1713 Philippe Healy R.N. Finger stick glucose: 166. --1715 Philippe Healy R.N. Temp: 32.5 rectal. --173 Philippe Healy R.N. Blood samples drawn from the right foot with 25g by nurse per protocol and sent to lab: [facility]. --1752 Philippe Healy R.N. BP: 117 / 71. HR: 52. RR: 12. O2 saturation: 100% (nonrebreather mask at 10 liters/minute). --1752 Philippe Healy R.N. Critical value relayed to ED, read back and verified. Na: 120. ED physician notifed of critical value (NATALI). --1832 Landy Rosas, (Called by Dr. Jodi Parr to take photographs of unexplained tabares on patient's body. A total of19 photographs were taken.). --2150 Kaylie Ibrahim R.N., [place] (Patient has abrasions and healing cuts to left elbow and bilateral knees consistent with falls or bumps. Also has swellling and ecchymosis to right lateral foot. Photos taken: #1. full face without flash, on macro #2.(with standard) upper chest to right of midline, 5 cm X 8 cm irregular light brown bruise [id number] diameter darker brown bruise #3. (no standard) upper chest to right of midline (same as #2) #4. (with standard) left upper arm; 2 cm diameter round light brown bruise above a 2.5 cm diameter purple bruise #5. (no standard) L. upper arm, (same as #4) #6. (with standard) L medial distal upper leg, 3.5 cm oval shaped redness with clear center #7 (no standard) L medial distal upper leg (same as #6) #8 (with standard) right medial knee, oval pattern of redness with clear center #9 (no standard) R medical knee, oval pattern of redness with clear center (Same as #8) #10. (with standard) R lateral hip 5 cm long oval pattern of redness with clear center #11 (no standard) R lateral hip (same as #10) #12 (with standard) R buttock, large area of ecchymosis #13 (no standard) R buttock, same as #12 #14 (with standard) R. posteriolateral thoracic chest, oval pattern of redness with clear center and abrasion #15 (no standard) R posteriolateral thoracic chest, (same as #14) #16 (with standard) right upper back, oval shaped pattern with clear center #17(no standard) R upper back (same as #16) #18 (with standard) L lateral upper leg irregular patterned ecchymosis #19 (no standard)L later upper leg (same as #18)). --2303 Kaylie Ibrahim R.N., [place] (Photos printed for medical record and memory card labeled and sent to medical records.). --2304 Kaylie Ibrahim R.N., [place] (follow up phone call to Domonique at [facility] confirming that photographs have been taken and there is concern for some pattern-type bruises). --2333 Kaylie Ibrahim R.N., [place]. IV / I&O Flowsheet IV fluids started. IV bag #2 of 1000 mL NS; rate = wide open; warmed fluids. --1707 Philippe Healy R.N.. DISPOSITION / DISCHARGE Transported via by nurse with monitor, IV and O2. Admitted to pediatrics- ICU. --1807 Philippe Healy R.N.. Kaylie Thakur R.N., R.N., [facility] Locked/Released at 10/22/2008 7:44 by Anabelle Perez R.N. documented in this encounter Plan of Treatment Upcoming Encounters Date Type Department Care Team (Late st Contact Info) Description 09/09/2024 10:20 EST Office Visit [facility] Endocrinology - [facility] [address] [place] [address] Day Littlejohn MD PhD 62 [facility] [address] [place] [address] documented as of this encounter Visit Diagnoses Not on filedocumented in this encounter Care Teams Historian Research Assistant Relationship Specialty Start Date End Date Yan Demarco MD [address] [place] [phone] PCP - General 08/22/09 02/20/10 Corin Skinner MD [address] [place] [phone] PCP - General 10/24/08 08/21/09 documented as of this encounter
--- OUTSIDE RECORDS SUMMARY | 2024-03-05 15:47 | XMS_ITS | Encounter Summary ---
Author Organization [facility] Address [address] [place] [address] Care Team Providers Care Electronics Engineering Manager Name Role Phone Yan Demarco MD Primary Care Provider [phone] Corin Skinner MD Primary Care Provider [phone] Akil Serrano MD Primary Care Provider [phone] Yossi Torres MD Primary Care Provider [phone] Emilee Cody MD Primary Care Provider + Ren Vaz MD Primary Care Provider [phone] Encounter Details Date Type Department Care Team (Late st Contact Info) Description 10/23/2008 Before PRISM Converted Visit (Maple) [facility] Pediatric Primary Care [address] [phone] Aisha Otero MD [address] [facility], [facility], [place], [address] [place] [address] Social History Tobacco Use Types Packs/Day Years Used Date Smoking Tobacco: Never Assessed Sex and Gender Information Value Date Recorded Sex Assigned at Not on file Gender Identity Not on file Sexual Orientation Not on file documented as of this encounter Plan of Treatment Upcoming Encounters Date Type Department Care Team (Late st Contact Info) Description 09/09/2024 10:20 EST Office Visit [facility] Endocrinology - [address] [place] [address] Day Littlejohn MD PhD 62 [facility] [address] [place] [address] documented as of this encounter Procedures Procedure Name Priority Date/Time Associated Diagnosis Comments PORTABLE CHEST 1 VIEW 10/23/2008 2:02 EDT documented in this encounter Results * PORTABLE CHEST 1 VIEW (10/23/2008 2:02 EDT) Anatomical Region Laterality Modality Other 10/23/2008 2:02 EDT Narrative 11/01/2008 3:06 EDT 18 yo with tachnypnea. + desats on RA. retractions and flaring. + course BS throughout. Eval for PNA. PORTABLE CHEST 1 VIEW ??Oct 23, 2008 2:02:00 AM Indication: 18-year-old with tachypnea, desaturation on room air. Retractions and flaring. Positive coarse breath sounds throughout. Evaluate for pneumonia. Patient with diabetes insipidus with fluid overload. Comparison: October 21, 2008. Findings: AP and in the upright view of the chest demonstrates patchy bilateral lower lobe nodular and patchy airspace opacities. The cardiomediastinal silhouette is unremarkable. The visualized bones are age-appropriate. Impression: Findings most concerning for pneumonia or aspiration pneumonitis. Case was reviewed with AISHA OTERO at the time of interpretation. I have personally reviewed the images and the above interpretation and agree with the findings. Procedure Note Arthur Duggan MD / Sukhi Menard MD - 11/01/2008 18 yo with tachnypnea. + desats on RA. retractions and flaring. + course BS throughout. Eval for PNA. PORTABLE CHEST 1 VIEW Oct 23, 2008 2:02:00 AM Indication: 18-year-old with tachypnea, desaturation on room air. Retractions and flaring. Positive coarse breath sounds throughout. Evaluate for pneumonia. Patient with diabetes insipidus with fluid overload. Comparison: October 21, 2008. Findings: AP and in the upright view of the chest demonstrates patchy bilateral lower lobe nodular and patchy airspace opacities. The cardiomediastinal silhouette is unremarkable. The visualized bones are age-appropriate. Impression: Findings most concerning for pneumonia or aspiration pneumonitis. Case was reviewed with AISHA OTERO at the time of interpretation. I have personally reviewed the images and the above interpretation and agree with the findings. Aisha Otero MD IMG DIAGNOSTIC IMAGI NG ORDERABLES documented in this encounter Visit Diagnoses Not on filedocumented in this encounter Care Teams Electronics Engineering Manager Relationship Specialty Start Date End Date Yan Demarco MD [address] [place] [address] PCP - General 08/22/09 02/20/10 Corin Skinner MD [address] [place] [phone] PCP - General 10/24/08 08/21/09 Akil Serrano MD [address] [place] [address],[facility] [address] [place], [place] [address] PCP - General 02/21/10 04/16/11 Yossi Torres MD [address] [place] [phone] PCP - General 04/17/11 03/14/16 Emilee Cody MD [address] [place] [phone] PCP - General 03/15/16 09/29/18 Ren Vaz MD [address] [place] [phone] PCP - General 09/30/18 documented as of this encounter
--- OUTSIDE RECORDS SUMMARY | 2024-03-05 15:47 | XMS_ITS | Encounter Summary ---
Author Organization [facility] Address [address] [place] [address] Care Team Providers Care Stereo Compiler Name Role Phone Corin Skinner MD Primary Care Provider [phone] Encounter Details Date Type Department Care Team (Late st Contact Info) Description 10/21/2008 Before PRISM Converted Visit (Maple) [facility] - Maple conversion [address] [place] [address] Christopher Ga MD [address] [place] [phone] Social History Tobacco Use Types Packs/Day [...] Visit [facility] Endocrinology - [facility] [address] [place], [place] [phone] Day Littlejohn MD PhD 62 [facility] [address] [place] [address] documented as of this encounter Procedures Procedure Name Priority Date/Time Associated Diagnosis Comments BLOOD GAS, EG6 ISTAT Routine 10/21/2008 16:46 EDT documented in this encounter Results * (ABNORMAL) BLOOD GAS, EG6 ISTAT (10/21/2008 16:46 EDT) pH, i-STAT 7.34(L) 7.35 - 7.45 [facility] pCO2, i-STAT 42 35 - 45 mmHg [facility] pO2, i-STAT 516(H) 85 - 100 mmHg [facility] TCO2, i-STAT 24 mEq/L [facility] O2 Saturation 100 % [facility] Sodium, i-STAT 121(LL) 136 - 145 mEq/L [facility] Potassium, i-STAT 4.6 3.5 - 5.0 mEq/L [facility] Hematocrit,iST AT 31(L) 39.5 - 50.2 % [facility] Base Deficit 3 [facility] FIO2 1.0 [facility] Sample Type ARTERIAL [facility] auto painter helper ID [id number] Test Performed by Respiratory For non-arterial reference ranges, please see ISTAT procedure. [facility] 10/21/2008 16:4 6 EDT 10/22/2008 1:20 EDT Christopher Ga MD CHEMISTRY & BLOOD G ORDERABLES Performing Organization Address City/State/[facility] Co de Phone Number [facility] [address] [place] [address] documented in this encounter Visit Diagnoses Not on filedocumented in this encounter Care Teams Stereo Compiler Relationship Specialty Start Date End Date Corin Skinner MD [address] [place] [phone] PCP - General 10/24/08 08/21/09 documented as of this encounter
--- OUTSIDE RECORDS SUMMARY | 2024-03-05 15:47 | XMS_ITS | Encounter Summary ---
Author Organization [facility] Address [address] [place] [address] Care Team Providers Care Test Engineer Name Role Phone Unavailable Primary Care Provider Unavailabl e Encounter Details Date Type Department Care Team (Late st Contact Info) Description 07/21/2008 18:45 EST - 07/26/2008 11:59 EST Hospital Encounter [facility] [address], [place] [id number] Jodi Parr MD [address] [place] [address] [phone] Skyler Quinteros MD MSc [address] [place] [address] [phone] Discharge Disposition: Home-Health Care Svc Social History Tobacco Use Types Packs/Day Years Used Date Smoking Tobacco: Never Assessed Sex and Gender Information Value Date Recorded Sex Assigned at Not on file Gender Identity Not on file Sexual Orientation Not on file documented as of this encounter Discharge Disposition Disposition Code Departure Means Destination Home-Health Care Svc documented in this encounter Plan of Treatment Upcoming Encounters Date Type Department Care Team (Late st Contact Info) Description 09/09/2024 10:[address] [facility] Endocrinology - [facility] [address], [place] [id number] Day Littlejohn MD PhD [address] [place] [address] [place] [phone] documented as of this encounter Procedures Procedure Name Priority Date/Time Associated Diagnosis Comments ELECTROLYTES Routine 07/26/2008 16:00 EST ELECTROLYTES Routine 07/26/2008 8:00 EST ELECTROLYTES Routine 07/25/2008 8:10 EST CALCIUM, IONIZED Routine 07/24/2008 16:4 1 EST GLUCOSE, SERUM Routine 07/24/2008 16:00 EST CALCIUM IONIZED Routine 07/24/2008 16:00 EST CALCIUM Routine 07/24/2008 16:00 EST ELECTROLYTES Routine 07/24/2008 16:00 EST ELECTROLYTES Routine 07/24/2008 8:00 EST WRIST 2 VIEWS 07/22/2008 15:15 EST FOREARM 2 VIEWS 07/22/2008 15:15 EST URINE CULTURE IF POSITIVE Routine 07/22/2008 12:00 EST URINE CHEMICAL (DIP) & SEDIMENT (MICRO) WITHOUT REFLEX TO CULTURE Routine 07/22/2008 12:00 EST WRIST 2 VIEWS 07/21/2008 20:20 EST documented in this encounter Results * ELECTROLYTES (07/26/2008 16:00 EST) Sodium 139 136 - 145 mEq/L [facility] Comment:Sample retested, res ult confirmed Potassium 4.0 3.5 - 5.0 mEq/L [facility] Chloride 105 96 - 110 mEq/L [facility] CO2 24 24 - 32 mEq/L [facility] 07/26/2008 16:0 0 EST 07/26/2008 17:02 EST Skyler Quinteros MD MSc CHEMISTRY & B LOOD GAS ORDERABLES Performing Organization Address [facility] de Phone Number [facility] [address] [place] [address] * (ABNORMAL) ELECTROLYTES (07/26/2008 8:00 EST) Sodium 150(H) 136 - 145 mEq/L [facility] Potassium 4.1 3.5 - 5.0 mEq/L [facility] Chloride 112(H) 96 - 110 mEq/L [facility] CO2 25 24 - 32 mEq/L [facility] 07/26/2008 8:00 EST 07/26/2008 8:46 EST Skyler Quinteros MD, MSc CHEMISTRY & B LOOD GAS ORDERABLES Performing Organization Address [facility] Phone Number [facility] [address] [place] [address] * (ABNORMAL) ELECTROLYTES (07/25/2008 8:10 EST) Sodium 147(H) 136 - 145 mEq/L [facility] Potassium 3.8 3.5 - 5.0 mEq/L [facility] Chloride 110 96 - 110 mEq/L [facility] CO2 23(L) 24 - 32 mEq/L [facility] 07/25/2008 8:10 EST 07/25/2008 8:39 EST Skyler Quinteros MD, MSc CHEMISTRY & B LOOD GAS ORDERABLES Performing Organization Address [facility] de Phone Number [facility] [address] [place] [address] * CALCIUM, IONIZED (07/24/2008 16:41 EST) Calcium, Ionized 1.27 1.12 - 1.32 mmol/L [facility] binder [place] [id number] Test performed by Chemistry [facility] 07/24/2008 16:4 1 EST 07/24/2008 16:49 EST Skyler Quinteros MD MSc CHEMISTRY & B LOOD GAS ORDERABLES Performing Organization Address [facility] Co de Phone Number [facility] [address] [place] [address] * GLUCOSE, SERUM (07/24/2008 16:00 EST) Glucose, Serum 82 70 - 100 mg/dl [facility] 07/24/2008 16:0 0 EST 07/24/2008 16:36 EST Skyler Quinteros MD MSc CHEMISTRY & B LOOD GAS ORDERABLES Performing Organization Address [facility] de Phone Number [facility] [address] [place] [address] * CALCIUM (07/24/2008 16:00 EST) Calcium 9.2 8.5 - 10.5 mg/dl [facility] Calculated Calcium 10.0 8.5 - 10.5 mg/dl [facility] 07/24/2008 16:0 0 EST 07/24/2008 16:36 EST Skyler Quinteros MD MSc CHEMISTRY & B LOOD GAS ORDERABLES Performing Organization Address [facility] Phone Number [facility] [address] [place] [address] * (ABNORMAL) ELECTROLYTES (07/24/2008 16:00 EST) Sodium 146(H) 136 - 145 mEq/L [facility] Potassium 4.5 3.5 - 5.0 mEq/L [facility] Chloride 108 96 - 110 mEq/L [facility] CO2 26 24 - 32 mEq/L [facility] 07/24/2008 16:0 0 EST 07/24/2008 16:36 EST Skyler Quinteros MD MSc CHEMISTRY & B LOOD GAS ORDERABLES Performing Organization Address [facility] Co de Phone Number [facility] [address] [place] [address] * CALCIUM IONIZED (07/24/2008 16:00 EST) Ionized Calcium Note Sample sent to Lab. [facility] 07/24/2008 16:0 0 EST 07/24/2008 16:36 EST Skyler Quinteros MD MSc CHEMISTRY & B LOOD GAS ORDERABLES Performing Organization Address [facility] de Phone Number [facility] [address] [place] [address] * (ABNORMAL) ELECTROLYTES (07/24/2008 8:00 EST) Sodium 147(H) 136 - 145 mEq/L [facility] Potassium 3.5 3.5 - 5.0 mEq/L [facility] Chloride 109 96 - 110 mEq/L [facility] CO2 21(L) 24 - 32 mEq/L [facility] 07/24/2008 8:00 EST 07/24/2008 8:28 EST Skyler Quinteros MD MSc CHEMISTRY & B LOOD GAS ORDERABLES Performing Organization Address [facility] Phone Number [facility] [address] [place] [address] * WRIST 2 VIEWS (07/22/2008 15:15 EST) Anatomical Region Laterality Modality Other 07/22/2008 15:1 5 EST Narrative 11/21/2008 9:51 EDT 17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 left scaphoid fx on prev film, + wrist hematoma, r/o fx. 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 left scaphoid fx on prev film, + wrist hematoma, r/o fx.. Three views of the left wrist including a scaphoid view are compared with the prior examination done yesterday. No fracture is identified. Nevertheless, if symptoms persist and scaphoid fracture is clinically suspected, repeat filming in 7 to 10 days is suggested since scaphoid fractures may not be apparent on initial radiographs. 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 left scaphoid fx on prev film, + wrist hematoma, r/o fx. 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 left scaphoid fx on prev film, + wrist hematoma, r/o fx.. Three views of the left wrist including a scaphoid view are compared with the prior examination done yesterday. No fracture is identified. Nevertheless, if symptoms persist and scaphoid fracture is clinically suspected, repeat filming in 7 to 10 days is suggested since scaphoid fractures may not be apparent on initial radiographs. 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 left scaphoid fx on prev film, + wrist hematoma, r/o fx. 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 left scaphoid fx on prev film, + wrist hematoma, r/o fx.. Two views of the left forearm show no evidence of recent fracture or dislocation. 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 left scaphoid fx on prev film, + wrist hematoma, r/o fx. 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 left scaphoid fx on prev film, + wrist hematoma, r/o fx.. Two views of the left forearm show no evidence of recent fracture or dislocation. Salud Nichole MD IMG DIAGNOSTIC IMAGI NG ORDERABLES * CULTURE IF UA POSITIVE (07/22/2008 12:00 EST) Culture if Indicated Culture not indicated by urinalysis results. [facility] 07/22/2008 12:0 0 EST 07/22/2008 12:23 EST Skyler Quinteros MD MSc MICROBIOLOGY - GENERAL ORDERABLES Performing Organization Address City/State/[facility] Co de Phone Number [facility] [address] [place] [address] * UA WITH MICROSCOPIC (07/22/2008 12:00 EST) Color, UA Yellow [facility] Clarity, UA Clear [facility] Glucose, UA Norm NORM [facility] Bilirubin, UA Neg NEG [facility] Ketones, UA Neg NEG [facility] Specific [place], Urine 1.010 1.005 - 1.02 [facility] Blood, UA Neg NEG [facility] pH, UA 6.0 5.0 - 9.0 [facility] Protein, UA Neg NEG [facility] Urobilinogen, UA Norm NORM mg/dL [facility] Nitrite, UA Neg NEG [facility] Leuk Esterase Neg NEG [facility] WBC, UA None seen 0 - 5 /HPF [facility] RBC, UA None seen 0 - 5 /HPF [facility] Squam Epithel, UA None seen NS /HPF [facility] Renal Epithel, UA None seen NS /HPF [facility] Bacteria, UA None seen NS /HPF [facility] Crystals, UA None seen /HPF [facility] Hyaline Casts, UA None seen /LPF [facility] Comment Microscopic results are unreliable on urines unrefrig >2hrs or refrig >8hrs. [facility] Comment Amorphous material present [facility] 07/22/2008 12:0 0 EST 07/22/2008 12:23 EST Skyler Quinteros MD MSc URINALYSIS OR DERABLES Performing Organization Address City/State/[facility] Co de Phone Number [facility] [address] [place] [address] * WRIST 2 VIEWS (07/21/2008 20:20 EST) Anatomical Region Laterality Modality Other 07/21/2008 20:2 0 EST Narrative 11/21/2008 10:31 EDT bruising left wrist evaluate for fracture PA and lateral views of the left wrist , 2022, July 21, 2008 Indication: Bruising, evaluate for fracture. PA and lateral views of the wrist were obtained. There is questionable faint lucency through the waist of the navicular bone, possibly nondisplaced fracture. Mild diffuse osteopenia noted. Impression: Possible nondisplaced navicular fracture. Oblique and navicular views of the wrist are recommended for further evaluation. Procedure Note Paris Peters MD - 11/21/2008 bruising left wrist evaluate for fracture PA and lateral views of the left wrist , 2022 hours, July 21, 2008 Indication: Bruising, evaluate for fracture. PA and lateral views of the wrist were obtained. There is questionable faint lucency through the waist of the navicular bone, possibly nondisplaced fracture. Mild diffuse osteopenia noted. Impression: Possible nondisplaced navicular fracture. Oblique and navicular views of the wrist are recommended for further evaluation. Salud Nichole MD IMG DIAGNOSTIC IMAGI NG ORDERABLES documented in this encounter Visit Diagnoses Not on filedocumented in this encounter
--- OUTSIDE RECORDS SUMMARY | 2024-03-05 15:47 | XMS_ITS | Encounter Summary ---
Author Organization [facility] Address [address] [place] [address] Care Team Providers Care Internal Corrosion Specialist Name Role Phone Corin Skinner MD Primary Care Provider [phone] Encounter Details Date Type Department Care Team (Late st Contact Info) Description 10/21/2008 Before PRISM Converted Visit (Maple) [facility] - Maple conversion [address] [place] [address] Emergency, MD Diya Social History Tobacco Use [...] Info) Description 09/09/2024 10:20 EST Office Visit [facility] Endocrinology - [address] [address] Day Littlejohn MD PhD [address] [place] [address] [address] [place] [phone] documented as of this encounter Procedures Procedure Name Priority Date/Time Associated Diagnosis Comments OSMOLALITY Routine 10/21/2008 17:54 EDT documented in this encounter Results * (ABNORMAL) OSMOLALITY (10/21/2008 17:54 EDT) Osmolality Cintia 258(L) 280 - 300 MOS/KG [facility] 10/21/2008 17:5 4 EDT 10/21/2008 17:54 EDT Default Emergency MD CHEMISTRY & BLOOD G ORDERABLES Performing Organization Address City/State/[facility] Co de Phone Number [facility] [address] [place] [address] documented in this encounter Visit Diagnoses Not on filedocumented in this encounter Care Teams Internal Corrosion Specialist Relationship Specialty Start Date End Date Corin Skinner MD [address] [place] [phone] PCP - General 10/24/08 08/21/09 documented as of this encounter
--- OUTSIDE RECORDS SUMMARY | 2024-03-05 15:47 | XMS_ITS | Encounter Summary ---
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 EDT ELECTROLYTES Routine 10/28/2008 19:25 EDT TESTOSTERONE Routine 10/28/2008 12:41 EDT TESTOSTERONE Routine 10/28/2008 11:55 EDT SODIUM Routine 10/28/2008 11:55 EDT SODIUM Routine 10/28/2008 11:55 EDT CORTISOL Routine 10/28/2008 11:55 EDT SODIUM, URINE RANDOM Routine 10/28/2008 11:45 EDT OSMOLALITY, URINE Routine 10/28/2008 11: 45 EDT SODIUM, URINE RANDOM Routine 10/28/2008 10:13 EDT SODIUM Routine 10/28/2008 10:13 EDT OSMOLALITY, URINE Routine 10/28/2008 10: 13 EDT TESTS ADDED BY PHONE Routine 10/28/2008 8:15 EDT SODIUM, URINE RANDOM Routine 10/28/2008 8:15 EDT OSMOLALITY, URINE Routine 10/28/2008 8:1 5 EDT ELECTROLYTES Routine 10/28/2008 8:15 EDT SODIUM, URINE RANDOM Routine 10/28/2008 6:00 EDT BUN Routine 10/28/2008 6:00 EDT OSMOLALITY, URINE Routine 10/28/2008 6:0 0 EDT CREATININE Routine 10/28/2008 6:00 EDT ELECTROLYTES Routine 10/28/2008 6:00 EDT SODIUM, URINE RANDOM Routine 10/28/2008 4:00 EDT SODIUM Routine 10/28/2008 4:00 EDT OSMOLALITY, URINE Routine 10/28/2008 4:0 0 EDT GLUCOSE, SERUM Routine 10/28/2008 4:00 EDT SODIUM, URINE RANDOM Routine 10/28/2008 2:30 EDT OSMOLALITY, URINE Routine 10/28/2008 2:3 0 EDT SODIUM Routine 10/28/2008 2:00 EDT SODIUM, URINE RANDOM Routine 10/27/2008 20:00 EDT BUN Routine 10/27/2008 20:00 EDT OSMOLALITY, URINE Routine 10/27/2008 20: 00 EDT CREATININE Routine 10/27/2008 20:00 EDT ELECTROLYTES Routine 10/27/2008 20:00 EDT SODIUM Routine 10/27/2008 14:30 EDT SODIUM, URINE RANDOM Routine 10/27/2008 13:20 EDT OSMOLALITY, URINE Routine 10/27/2008 13: 20 EDT SODIUM, URINE RANDOM Routine 10/27/2008 12:23 EDT OSMOLALITY, URINE Routine 10/27/2008 12: 23 EDT SODIUM Routine 10/27/2008 12:21 EDT SODIUM Routine 10/27/2008 9:40 EDT SODIUM Routine 10/27/2008 6:50 EDT SODIUM Routine 10/27/2008 6:15 EDT BUN Routine 10/27/2008 4:30 EDT GLUCOSE, SERUM Routine 10/27/2008 4:30 EDT CREATININE Routine 10/27/2008 4:30 EDT ELECTROLYTES Routine 10/27/2008 4:30 EDT SODIUM Routine 10/27/2008 1:30 EDT SODIUM, URINE RANDOM Routine 10/27/2008 0:15 EDT OSMOLALITY, URINE Routine 10/27/2008 0:1 5 EDT SODIUM Routine 10/26/2008 22:48 EDT SODIUM Routine 10/26/2008 18:41 EDT CORTISOL Routine 10/26/2008 18:41 EDT SODIUM Routine 10/26/2008 9:59 EDT TESTS ADDED BY PHONE Routine 10/26/2008 6:12 EDT COMPLETE BLOOD COUNT AND DIFFERENTIAL Routine 10/26/2008 6:12 EDT BUN Routine 10/26/2008 6:12 EDT GLUCOSE, SERUM Routine 10/26/2008 6:12 EDT CREATININE Routine 10/26/2008 6:12 EDT CORTISOL Routine 10/26/2008 6:12 EDT ELECTROLYTES Routine 10/26/2008 6:12 EDT SODIUM Routine 10/26/2008 1:57 EDT GLUCOSE, SERUM Routine 10/26/2008 1:57 EDT SODIUM Routine 10/25/2008 22:00 EDT GLUCOSE, GLUCOMETER Routine 10/25/2008 2 0:59 EDT HOLD GREEN TOP Routine 10/25/2008 20:05 EDT BUN Routine 10/25/2008 20:05 EDT GLUCOSE, SERUM Routine 10/25/2008 20:05 EDT CREATININE Routine 10/25/2008 20:05 EDT ELECTROLYTES Routine 10/25/2008 20:05 EDT SODIUM Routine 10/25/2008 18:00 EDT SODIUM Routine 10/25/2008 16:00 EDT PORTABLE CHEST 1 VIEW 10/25/2008 12:50 EDT SODIUM Routine 10/25/2008 12:45 EDT GLUCOSE, SERUM Routine 10/25/2008 12:45 EDT SODIUM Routine 10/25/2008 10:00 EDT SODIUM, URINE RANDOM Routine 10/25/2008 8:06 EDT OSMOLALITY, URINE Routine 10/25/2008 8:0 6 EDT OSMOLALITY Routine 10/25/2008 8:04 EDT GLUCOSE, SERUM Routine 10/25/2008 8:04 EDT ELECTROLYTES Routine 10/25/2008 8:04 EDT OSMOLALITY Routine 10/25/2008 4:49 EDT BUN Routine 10/25/2008 4:49 EDT SODIUM Routine 10/25/2008 4:49 EDT POTASSIUM Routine 10/25/2008 4:49 EDT GLUCOSE, SERUM Routine 10/25/2008 4:49 EDT CREATININE Routine 10/25/2008 4:49 EDT CHLORIDE Routine 10/25/2008 4:49 EDT CO2 Routine 10/25/2008 4:49 EDT SODIUM, URINE RANDOM Routine 10/25/2008 3:59 EDT OSMOLALITY, URINE Routine 10/25/2008 3:5 9 EDT SODIUM, URINE RANDOM Routine 10/25/2008 0:15 EDT OSMOLALITY Routine 10/25/2008 0:15 EDT OSMOLALITY, URINE Routine 10/25/2008 0:1 5 EDT GLUCOSE, SERUM Routine 10/25/2008 0:15 EDT ELECTROLYTES Routine 10/25/2008 0:15 EDT SODIUM, URINE RANDOM Routine 10/24/2008 20:00 EDT OSMOLALITY Routine 10/24/2008 20:00 EDT OSMOLALITY, URINE Routine 10/24/2008 20: 00 EDT URINE MICROSCOPIC Routine 10/23/2008 22: 30 EDT URINALYSIS WITH MICROSCOPIC IF POSITIVE Routine 10/23/2008 22:30 EDT SODIUM, URINE RANDOM Routine 10/23/2008 22:30 EDT OSMOLALITY, URINE Routine 10/23/2008 22: 30 EDT BUN Routine 10/23/2008 20:49 EDT SODIUM Routine 10/23/2008 20:49 EDT POTASSIUM Routine 10/23/2008 20:49 EDT CREATININE Routine 10/23/2008 20:49 EDT ELECTROLYTES Routine 10/23/2008 16:00 EDT COMPLETE BLOOD COUNT AND DIFFERENTIAL Routine 10/23/2008 8:45 EDT BUN Routine 10/23/2008 8:45 EDT GLUCOSE, SERUM Routine 10/23/2008 8:45 EDT CREATININE Routine 10/23/2008 8:45 EDT ELECTROLYTES Routine 10/23/2008 8:45 EDT COMPLETE BLOOD COUNT AND DIFFERENTIAL Routine 10/23/2008 6:15 EDT BUN Routine 10/23/2008 6:15 EDT GLUCOSE, SERUM Routine 10/23/2008 6:15 EDT CREATININE Routine 10/23/2008 6:15 EDT ELECTROLYTES Routine 10/23/2008 6:15 EDT GLUCOSE, GLUCOMETER Routine 10/23/2008 6 :02 EDT ZZBLOOD GAS, G3 ISTAT Routine 10/23/2008 5:49 EDT BLOOD GAS, G3 ISTAT Routine 10/23/2008 2 :13 EDT BACTERIAL CULTURE, BLOOD Routine 10/23/2008 2:00 EDT ELECTROLYTES Routine 10/23/2008 2:00 EDT ELECTROLYTES Routine 10/23/2008 2:00 EDT GLUCOSE, GLUCOMETER Routine 10/22/2008 2 1:12 EDT GLUCOSE, SERUM Routine 10/22/2008 18:07 EDT ELECTROLYTES Routine 10/22/2008 18:07 EDT ELECTROLYTES Routine 10/22/2008 11:15 EDT GLUCOSE, GLUCOMETER Routine 10/22/2008 1 1:05 EDT ELECTROLYTES Routine 10/22/2008 7:36 EDT GLUCOSE, GLUCOMETER Routine 10/22/2008 7 :26 EDT PTT Routine 10/22/2008 3:29 EDT PROTIME Routine 10/22/2008 3:29 EDT COMPLETE BLOOD COUNT Routine 10/22/2008 3:29 EDT BUN Routine 10/22/2008 3:29 EDT PHOSPHORUS Routine 10/22/2008 3:29 EDT MAGNESIUM Routine 10/22/2008 3:29 EDT GLUCOSE, SERUM Routine 10/22/2008 3:29 EDT CREATININE Routine 10/22/2008 3:29 EDT ELECTROLYTES Routine 10/22/2008 3:29 EDT SODIUM, URINE RANDOM Routine 10/22/2008 0:43 EDT OSMOLALITY, URINE Routine 10/22/2008 0:4 3 EDT GLUCOSE, GLUCOMETER Routine 10/22/2008 0 :19 EDT OSMOLALITY Routine 10/22/2008 0:00 EDT ELECTROLYTES Routine 10/22/2008 0:00 EDT documented in this encounter Results * HOLD (11/04/2008 7:00 EDT) Hold Hold for further testing. Specimen will be held for 30 days. [facility] 11/04/2008 7:00 EDT 11/04/2008 7:21 EDT Christopher Ga MD CHEMISTRY & BLOOD G ORDERABLES [facility] [address] [place] [address] * SODIUM (11/04/2008 7:00 EDT) Sodium Duplicate Test Request 136 - 145 mEq/L [facility] Blood specimen (specimen) 11/04/2008 7:00 EDT 11/04/2008 7:21 EDT Christopher Ga MD CHEMISTRY & BLOOD G ORDERABLES Performing Organization Address [facility] Phone Number [facility] [address] [place] [address] * (ABNORMAL) GLUCOSE, SERUM (11/04/2008 6:50 EDT) Pathologist [facility] [place] Glucose, Serum 67(L) 70 - 100 mg/dl [facility] Comment:Heparinized plasma. Blood specimen (specimen) 11/04/2008 6:50 EDT 11/04/2008 7:20 EDT Christopher Ga MD CHEMISTRY & BLOOD G ORDERABLES Performing Organization Address [facility] Phone Number [facility] [address] [place] [address] * ELECTROLYTES (11/04/2008 6:50 EDT) Pathologist [facility] [place] Sodium 140 136 - 145 mEq/L [facility] Comment:Heparinized plasma. Potassium 3.8 3.5 - 5.0 mEq/L [facility] Comment:Heparinized plasma. Chloride 106 96 - 110 mEq/L [facility] Comment:Heparinized plasma. CO2 24 24 - 32 mEq/L [facility] Comment:Heparinized plasma. Blood specimen (specimen) 11/04/2008 6:50 EDT 11/04/2008 7:20 EDT Christopher Ga MD CHEMISTRY & BLOOD G ORDERABLES Performing Organization Address [facility] de Phone Number [facility] [address] [place] [address] * CREATININE (11/04/2008 6:50 EDT) Creatinine 0.70 0.7 - 1.5 mg/dl [facility] Comment:Heparinized plasma. GFR, Calculated >60 ml/min/1.7 3m2 [facility] Comment:Heparinized plasma. Blood specimen (specimen) 11/04/2008 6:50 EDT 11/04/2008 7:20 EDT Christopher Ga MD CHEMISTRY & BLOOD G ORDERABLES Performing Organization Address [facility] de Phone Number [facility] [address] [place] [address] * BUN (11/04/2008 6:50 EDT) BUN 15 10 - 26 mg/dl [facility] Comment:Heparinized plasma. Blood specimen (specimen) 11/04/2008 6:50 EDT 11/04/2008 7:20 EDT Christopher Ga MD CHEMISTRY & BLOOD G ORDERABLES Performing Organization Address [facility] Phone Number [facility] [address] [place] [address] * ELECTROLYTES (11/03/2008 19:00 EDT) Sodium 140 136 - 145 mEq/L [facility] Potassium 4.3 3.5 - 5.0 mEq/L [facility] Chloride 106 96 - 110 mEq/L [facility] CO2 27 24 - 32 mEq/L [facility] Blood specimen (specimen) 11/03/2008 19:00 EDT 11/03/2008 19:24 EDT Christopher Ga MD CHEMISTRY & BLOOD G ORDERABLES Performing Organization Address [facility] Phone Number [facility] [address] [place] [address] * CREATININE (11/03/2008 19:00 EDT) Creatinine 0.70 0.7 - 1.5 mg/dl [facility] GFR, Calculated >60 ml/min/1.7 3m2 [facility] Blood specimen (specimen) 11/03/2008 19:00 EDT 11/03/2008 19:24 EDT Christopher Ga MD CHEMISTRY & BLOOD G ORDERABLES Performing Organization Address [facility] Phone Number [facility] [address] [place] [address] * BUN (11/03/2008 19:00 EDT) BUN 15 10 - 26 mg/dl [facility] Blood specimen (specimen) 11/03/2008 19:00 EDT 11/03/2008 19:24 EDT Christopher Ga MD CHEMISTRY & BLOOD G ORDERABLES Performing Organization Address [facility] Phone Number [facility] [address] [place] [address] * OSMOLALITY (11/03/2008 14:00 EDT) Pathologist [facility] [place] Osmolality Cintia 300 280 - 300 MOS/KG [facility] Blood specimen (specimen) 11/03/2008 14:00 EDT 11/03/2008 14:36 EDT Christopher Ga MD CHEMISTRY & BLOOD G ORDERABLES Performing Organization Address [facility] Phone Number [facility] [address] [place] [address] * SODIUM (11/03/2008 14:00 EDT) Sodium 143 136 - 145 mEq/L [facility] Blood specimen (specimen) 11/03/2008 14:00 EDT 11/03/2008 14:36 EDT Christopher Ga MD CHEMISTRY & BLOOD G ORDERABLES Performing Organization Address [facility] Phone Number [facility] [address] [place] [address] * SODIUM, URINE RANDOM (11/03/2008 13:30 EDT) Sodium, Ur Sample quantity insufficient for testing. mEq/L [facility] Urine specimen (specimen) 11/03/2008 13:30 EDT 11/03/2008 15:04 EDT Christopher Ga MD URINALYSIS ORDERABL ES Performing Organization Address [facility] Phone Number [facility] [address] [place] [address] * OSMOLALITY,URINE (11/03/2008 13:30 EDT) Osmolality, Ur Sample quantity insufficient for testing. 392 - 1090 MOS/KG [facility] Urine specimen (specimen) 11/03/2008 13:30 EDT 11/03/2008 15:04 EDT Christopher Ga MD URINALYSIS ORDERABL ES Performing Organization Address [facility] Phone Number [facility] [address] [place] [address] * (ABNORMAL) GLUCOSE, SERUM (11/03/2008 6:20 EDT) Glucose, Serum 69(L) 70 - 100 mg/dl [facility] Blood specimen (specimen) 11/03/2008 6:20 EDT 11/03/2008 6:27 EDT Christopher Ga MD CHEMISTRY & BLOOD G ORDERABLES Performing Organization Address [facility] Phone Number [facility] [address] [place] [address] * ELECTROLYTES (11/03/2008 6:20 EDT) Sodium 144 136 - 145 mEq/L [facility] Potassium 4.2 3.5 - 5.0 mEq/L [facility] Chloride 109 96 - 110 mEq/L [facility] CO2 27 24 - 32 mEq/L [facility] Blood specimen (specimen) 11/03/2008 6:20 EDT 11/03/2008 6:27 EDT Christopher Ga MD CHEMISTRY & BLOOD G ORDERABLES Performing Organization Address [facility] Phone Number [facility] [address] [place] [address] * CREATININE (11/03/2008 6:20 EDT) Creatinine 0.70 0.7 - 1.5 mg/dl [facility] GFR, Calculated >60 ml/min/1.7 3m2 [facility] Blood specimen (specimen) 11/03/2008 6:20 EDT 11/03/2008 6:27 EDT Christopher Ga MD CHEMISTRY & BLOOD G ORDERABLES Performing Organization Address [facility] de Phone Number [facility] [address] [place] [address] * BUN (11/03/2008 6:20 EDT) BUN 15 10 - 26 mg/dl [facility] Blood specimen (specimen) 11/03/2008 6:20 EDT 11/03/2008 6:27 EDT Christopher Ga MD CHEMISTRY & BLOOD G ORDERABLES Performing Organization Address [facility] de Phone Number [facility] [address] [place] [address] * SODIUM (11/03/2008 0:15 EDT) Sodium 143 136 - 145 mEq/L [facility] Blood specimen (specimen) 11/03/2008 0:15 EDT 11/03/2008 0:30 EDT Christopher Ga MD CHEMISTRY & BLOOD G ORDERABLES Performing Organization Address [facility] Co de Phone Number [facility] [address] [place] [address] * ELECTROLYTES (11/02/2008 18:05 EDT) Sodium 141 136 - 145 mEq/L [facility] Potassium 4.4 3.5 - 5.0 mEq/L [facility] Chloride 107 96 - 110 mEq/L [facility] CO2 26 24 - 32 mEq/L [facility] Blood specimen (specimen) 11/02/2008 18:05 EDT 11/02/2008 18:22 EDT Christopher Ga MD CHEMISTRY & BLOOD G ORDERABLES Performing Organization Address [facility] de Phone Number [facility] [address] [place] [address] * CREATININE (11/02/2008 18:05 EDT) Creatinine 0.70 0.7 - 1.5 mg/dl [facility] GFR, Calculated >60 ml/min/1.7 3m2 [facility] Blood specimen (specimen) 11/02/2008 18:05 EDT 11/02/2008 18:22 EDT Christopher Ga MD CHEMISTRY & BLOOD G ORDERABLES Performing Organization Address [facility] de Phone Number [facility] [address] [place] [address] * BUN (11/02/2008 18:05 EDT) BUN 17 10 - 26 mg/dl [facility] Blood specimen (specimen) 11/02/2008 18:05 EDT 11/02/2008 18:22 EDT Christopher Ga MD CHEMISTRY & BLOOD G ORDERABLES Performing Organization Address [facility] de Phone Number [facility] [address] [place] [address] * (ABNORMAL) GLUCOSE, SERUM (11/02/2008 5:50 EDT) Glucose, Serum 68(L) 70 - 100 mg/dl [facility] Blood specimen (specimen) 11/02/2008 5:50 EDT 11/02/2008 6:04 EDT Christopher Ga MD CHEMISTRY & BLOOD G ORDERABLES Performing Organization Address [facility] de Phone Number [facility] [address] [place] [address] * ELECTROLYTES (11/02/2008 5:50 EDT) Sodium 142 136 - 145 mEq/L [facility] Potassium 3.8 3.5 - 5.0 mEq/L [facility] Chloride 107 96 - 110 mEq/L [facility] CO2 26 24 - 32 mEq/L [facility] Blood specimen (specimen) 11/02/2008 5:50 EDT 11/02/2008 6:04 EDT Christopher Ga MD CHEMISTRY & BLOOD G ORDERABLES Performing Organization Address [facility] Phone Number [facility] [address] [place] [address] * CREATININE (11/02/2008 5:50 EDT) Creatinine 0.70 0.7 - 1.5 mg/dl [facility] GFR, Calculated >60 ml/min/1.7 3m2 [facility] Blood specimen (specimen) 11/02/2008 5:50 EDT 11/02/2008 6:04 EDT Christopher Ga MD CHEMISTRY & BLOOD G ORDERABLES Performing Organization Address [facility] de Phone Number [facility] [address] [place] [address] * BUN (11/02/2008 5:50 EDT) BUN 15 10 - 26 mg/dl [facility] Blood specimen (specimen) 11/02/2008 5:50 EDT 11/02/2008 6:04 EDT Christopher Ga MD CHEMISTRY & BLOOD G ORDERABLES Performing Organization Address [facility] Co de Phone Number [facility] [address] [place] [address] * SODIUM (11/01/2008 22:00 EDT) Sodium 137 136 - 145 mEq/L [facility] Blood specimen (specimen) 11/01/2008 22:00 EDT 11/01/2008 22:24 EDT Christopher Ga MD CHEMISTRY & BLOOD G ORDERABLES Performing Organization Address [facility] Phone Number [facility] [address] [place] [address] * SODIUM, URINE RANDOM (11/01/2008 13:30 EDT) Sodium, Ur 15.0 mEq/L [facility] Urine specimen (specimen) 11/01/2008 13:30 EDT 11/01/2008 13:51 EDT Christopher Ga MD URINALYSIS ORDERABL ES Performing Organization Address [facility] Phone Number [facility] [address] [place] [address] * (ABNORMAL) OSMOLALITY,URINE (11/01/2008 13:30 EDT) Osmolality, Ur 163(L) 392 - 1090 MOS/KG [facility] Urine specimen (specimen) 11/01/2008 13:30 EDT 11/01/2008 13:51 EDT Christopher Ga MD URINALYSIS ORDERABL ES Performing Organization Address [facility] Phone Number [facility] [address] [place] [address] * OSMOLALITY (11/01/2008 13:20 EDT) Osmolality Cintia 294 280 - 300 MOS/KG [facility] Blood specimen (specimen) 11/01/2008 13:20 EDT 11/01/2008 13:52 EDT Christopher Ga MD CHEMISTRY & BLOOD G ORDERABLES [facility] [address] [place] [address] * SODIUM (11/01/2008 13:20 EDT) Sodium 138 136 - 145 mEq/L [facility] Blood specimen (specimen) 11/01/2008 13:20 EDT 11/01/2008 13:52 EDT Christopher Ga MD CHEMISTRY & BLOOD G ORDERABLES Performing Organization Address [facility] de Phone Number [facility] [address] [place] [address] * GLUCOSE, SERUM (11/01/2008 7:00 EDT) Glucose, Serum 77 70 - 100 mg/dl [facility] Blood specimen (specimen) 11/01/2008 7:00 EDT 11/01/2008 7:18 EDT Christopher Ga MD CHEMISTRY & BLOOD G ORDERABLES Performing Organization Address [facility] Phone Number [facility] [address] [place] [address] * (ABNORMAL) ELECTROLYTES (11/01/2008 7:00 EDT) Sodium 135(L) 136 - 145 mEq/L [facility] Potassium 3.1(L) 3.5 - 5.0 mEq/L [facility] Chloride 103 96 - 110 mEq/L [facility] CO2 25 24 - 32 mEq/L [facility] Blood specimen (specimen) 11/01/2008 7:00 EDT 11/01/2008 7:18 EDT Christopher Ga MD CHEMISTRY & BLOOD G ORDERABLES Performing Organization Address [facility] Phone Number [facility] [address] [place] [address] * CREATININE (11/01/2008 7:00 EDT) Creatinine 0.80 0.7 - 1.5 mg/dl [facility] GFR, Calculated >60 ml/min/1.7 3m2 [facility] Blood specimen (specimen) 11/01/2008 7:00 EDT 11/01/2008 7:18 EDT Christopher Ga MD CHEMISTRY & BLOOD G ORDERABLES Performing Organization Address [facility] de Phone Number [facility] [address] [place] [address] * BUN (11/01/2008 7:00 EDT) BUN 18 10 - 26 mg/dl [facility] Blood specimen (specimen) 11/01/2008 7:00 EDT 11/01/2008 7:18 EDT Christopher Ga MD CHEMISTRY & BLOOD G ORDERABLES Performing Organization Address [facility] Phone Number [facility] [address] [place] [address] * HOLD SST (10/31/2008 20:00 EDT) Hold SST Hold for further testing. Specimen will be held for 5 days. [facility] 10/31/2008 20:0 0 EDT 10/31/2008 20:13 EDT Christopher Ga MD LAB INFO SERVICE AN D SUPPORT & PHONE RESULT Performing Organization Address [facility] de Phone Number [facility] [address] [place] [address] * CORTISOL (10/31/2008 20:00 EDT) Cortisol 17 ug/dl [facility] Comment: 7-9a.m.=4.3-22.4 3-5p.m.=3.1-16.7 Blood specimen (specimen) 10/31/2008 20:00 EDT 10/31/2008 20:13 EDT Christopher Ga MD CHEMISTRY & BLOOD G ORDERABLES Performing Organization [facility] Co de Phone Number [facility] [address] [place] [address] * (ABNORMAL) GLUCOSE, SERUM (10/31/2008 7:00 EDT) Glucose, Serum 68(L) 70 - 100 mg/dl [facility] Blood specimen (specimen) 10/31/2008 7:00 EDT 10/31/2008 7:33 EDT Christopher Ga MD CHEMISTRY & BLOOD G ORDERABLES Performing Organization Address [facility] de Phone Number [facility] [address] [place] [address] * ELECTROLYTES (10/31/2008 7:00 EDT) Pathologist [facility] [place] Sodium 142 136 - 145 mEq/L [facility] Potassium 3.9 3.5 - 5.0 mEq/L [facility] Chloride 109 96 - 110 mEq/L [facility] CO2 26 24 - 32 mEq/L [facility] Blood specimen (specimen) 10/31/2008 7:00 EDT 10/31/2008 7:33 EDT Christopher Ga MD CHEMISTRY & BLOOD G ORDERABLES Performing Organization Address [facility] de Phone Number [facility] [address] [place] [address] * CREATININE (10/31/2008 7:00 EDT) Pathologist [facility] Creatinine 0.70 0.7 - 1.5 mg/dl [facility] GFR, Calculated >60 ml/min/1.7 3m2 [facility] Blood specimen (specimen) 10/31/2008 7:00 EDT 10/31/2008 7:33 EDT Christopher Ga MD CHEMISTRY & BLOOD G ORDERABLES Performing Organization Address [facility] Co de Phone Number [facility] [address] [place] [address] * BUN (10/31/2008 7:00 EDT) BUN 16 10 - 26 mg/dl [facility] Blood specimen (specimen) 10/31/2008 7:00 EDT 10/31/2008 7:33 EDT Christopher Ga MD CHEMISTRY & BLOOD G ORDERABLES Performing Organization Address [facility] Phone Number [facility] [address] [place] [address] * GLUCOSE, SERUM (10/30/2008 18:45 EDT) Glucose, Serum 88 70 - 100 mg/dl [facility] 10/30/2008 18:4 5 EDT 10/30/2008 18:56 EDT Christopher Ga MD CHEMISTRY & BLOOD G ORDERABLES Performing Organization Address [facility] Phone Number [facility] [address] [place] [address] * SODIUM (10/30/2008 18:45 EDT) Sodium 141 136 - 145 mEq/L [facility] 10/30/2008 18:4 5 EDT 10/30/2008 18:56 EDT Christopher Ga MD CHEMISTRY & BLOOD G ORDERABLES Performing Organization Address [facility] Phone Number [facility] [address] [place] [address] * CORTISOL (10/30/2008 18:45 EDT) Cortisol 32 ug/dl [facility] Comment: 7-9a.m.=4.3-22.4 3-5p.m.=3.1-16.7 Blood specimen (specimen) 10/30/2008 18:45 EDT 10/30/2008 18:56 EDT Christopher Ga MD CHEMISTRY & BLOOD G ORDERABLES Performing Organization Address [facility] de Phone Number [facility] [address] [place] [address] * SODIUM, URINE RANDOM (10/30/2008 7:15 EDT) Sodium, Ur 65.0 mEq/L [facility] Urine specimen (specimen) 10/30/2008 7:15 EDT 10/30/2008 7:32 EDT Christopher Ga MD URINALYSIS ORDERABL ES Performing Organization Address [facility] de Phone Number [facility] [address] [place] [address] * (ABNORMAL) OSMOLALITY,URINE (10/30/2008 7:15 EDT) Pathologist [facility] [place] Osmolality, Ur 199(L) 392 - 1090 MOS/KG [facility] Urine specimen (specimen) 10/30/2008 7:15 EDT 10/30/2008 7:32 EDT Christopher Ga MD URINALYSIS ORDERABL ES Performing Organization Address [facility] de Phone Number [facility] [address] [place] [address] * (ABNORMAL) GLUCOSE, SERUM (10/30/2008 7:15 EDT) Pathologist [facility] [place] Glucose, Serum 69(L) 70 - 100 mg/dl [facility] Comment:Heparinized plasma. Blood specimen (specimen) 10/30/2008 7:15 EDT 10/30/2008 7:32 EDT Christopher Ga MD CHEMISTRY & BLOOD G ORDERABLES Performing Organization Address [facility] de Phone Number [facility] [address] [place] [address] * ELECTROLYTES (10/30/2008 7:15 EDT) Sodium 142 136 - 145 mEq/L [facility] Comment:Heparinized plasma. Potassium 3.8 3.5 - 5.0 mEq/L [facility] Comment:Heparinized plasma. Chloride 107 96 - 110 mEq/L [facility] Comment:Heparinized plasma. CO2 26 24 - 32 mEq/L [facility] Comment:Heparinized plasma. Blood specimen (specimen) 10/30/2008 7:15 EDT 10/30/2008 7:32 EDT Christopher Ga MD CHEMISTRY & BLOOD G ORDERABLES Performing Organization Address [facility] de Phone Number [facility] [address] [place] [address] * CREATININE (10/30/2008 7:15 EDT) Creatinine 0.70 0.7 - 1.5 mg/dl [facility] Comment:Heparinized plasma. GFR, Calculated >60 ml/min/1.7 3m2 [facility] Comment:Heparinized plasma. Blood specimen (specimen) 10/30/2008 7:15 EDT 10/30/2008 7:32 EDT Christopher Ga MD CHEMISTRY & BLOOD G ORDERABLES Performing Organization Address [facility] Phone Number [facility] [address] [place] [address] * BUN (10/30/2008 7:15 EDT) BUN 13 10 - 26 mg/dl [facility] Comment:Heparinized plasma. Blood specimen (specimen) 10/30/2008 7:15 EDT 10/30/2008 7:32 EDT Christopher Ga MD CHEMISTRY & BLOOD G ORDERABLES Performing Organization Address [facility] Phone Number [facility] [address] [place] [address] * (ABNORMAL) OSMOLALITY,URINE (10/29/2008 19:50 EDT) Osmolality, Ur 106(L) 392 - 1090 MOS/KG [facility] Urine specimen (specimen) 10/29/2008 19:50 EDT 10/29/2008 20:08 EDT Christopher Ga MD URINALYSIS ORDERABL ES Performing Organization Address [facility] [place] [address] * GLUCOSE, SERUM (10/29/2008 18:15 EDT) Glucose, Serum 87 70 - 100 mg/dl [facility] Blood specimen (specimen) 10/29/2008 18:15 EDT 10/29/2008 18:44 EDT Christopher Ga MD CHEMISTRY & BLOOD G ORDERABLES Performing Organization Address [facility] [place] [address] * SODIUM (10/29/2008 18:15 EDT) Sodium 136 136 - 145 mEq/L [facility] Blood specimen (specimen) 10/29/2008 18:15 EDT 10/29/2008 18:44 EDT Christopher Ga MD CHEMISTRY & BLOOD G ORDERABLES Performing Organization Address [facility] Phone Number [address] [address] * SODIUM, URINE RANDOM (10/29/2008 18:15 EDT) Sodium, Ur 87.0 mEq/L [facility] Urine specimen (specimen) 10/29/2008 18:15 EDT 10/29/2008 18:45 EDT Christopher Ga MD URINALYSIS ORDERABL ES Performing Organization Address [facility] Phone [place] [address] * (ABNORMAL) OSMOLALITY,URINE (10/29/2008 18:15 EDT) Osmolality, Ur 336(L) 392 - 1090 MOS/KG [facility] Urine specimen (specimen) 10/29/2008 18:15 EDT 10/29/2008 18:45 EDT Christopher Ga MD URINALYSIS ORDERABL ES Performing Organization Address [facility] Phone Number [facility] [address] [place] [address] * (ABNORMAL) GLUCOSE, SERUM (10/29/2008 6:40 EDT) Glucose, Serum 63(L) 70 - 100 mg/dl [facility] Blood specimen (specimen) 10/29/2008 6:40 EDT 10/29/2008 6:55 EDT Christopher Ga MD CHEMISTRY & BLOOD G ORDERABLES Performing Organization Address [facility] Phone Number [facility] [address] [place] [address] * ELECTROLYTES (10/29/2008 6:40 EDT) Sodium 138 136 - 145 mEq/L [facility] Potassium 3.7 3.5 - 5.0 mEq/L [facility] Chloride 105 96 - 110 mEq/L [facility] CO2 27 24 - 32 mEq/L [facility] Blood specimen (specimen) 10/29/2008 6:40 EDT 10/29/2008 6:55 EDT Christopher Ga MD CHEMISTRY & BLOOD G ORDERABLES Performing Organization Address [facility] de Phone Number [facility] [address] [place] [address] * CREATININE (10/29/2008 6:40 EDT) Creatinine 0.70 0.7 - 1.5 mg/dl [facility] GFR, Calculated >60 ml/min/1.7 3m2 [facility] Blood specimen (specimen) 10/29/2008 6:40 EDT 10/29/2008 6:55 EDT Christopher Ga MD CHEMISTRY & BLOOD G ORDERABLES Performing Organization Address [facility] de Phone Number [facility] [address] [place] [address] * BUN (10/29/2008 6:40 EDT) BUN 13 10 - 26 mg/dl [facility] Blood specimen (specimen) 10/29/2008 6:40 EDT 10/29/2008 6:55 EDT Christopher Ga MD CHEMISTRY & BLOOD G ORDERABLES Performing Organization Address [facility] Phone Number [facility] [address] [place] [address] * (ABNORMAL) OSMOLALITY,URINE (10/29/2008 6:35 EDT) Osmolality, Ur 171(L) 392 - 1090 MOS/KG [facility] 10/29/2008 6:35 EDT 10/29/2008 6:57 EDT Christopher Ga MD URINALYSIS ORDERABL ES Performing Organization Address [facility] Phone Number [facility] [address] [place] [address] * SODIUM, URINE RANDOM (10/29/2008 6:35 EDT) Sodium, Ur 71.0 mEq/L [facility] 10/29/2008 6:35 EDT 10/29/2008 6:57 EDT Christopher Ga MD URINALYSIS ORDERABL ES Performing Organization Address [facility] Phone Number [facility] [address] [place] [address] * SODIUM, URINE RANDOM (10/29/2008 1:35 EDT) Sodium, Ur 262.0 mEq/L [facility] Urine specimen (specimen) 10/29/2008 1:35 EDT 10/29/2008 1:54 EDT Christopher Ga MD URINALYSIS ORDERABL ES Performing Organization Address [facility] de Phone Number [facility] [address] [place] [address] * OSMOLALITY,URINE (10/29/2008 1:35 EDT) Osmolality, Ur 581 392 - 1090 MOS/KG [facility] Urine specimen (specimen) 10/29/2008 1:35 EDT 10/29/2008 1:54 EDT Christopher Ga MD URINALYSIS ORDERABL ES Performing Organization Address [facility] de Phone Number [facility] [address] [place] [address] * TESTS ADDED BY PHONE (10/28/2008 19:25 EDT) 10/28/2008 19:2 5 EDT 10/28/2008 19:34 EDT Christopher Ga MD CHEMISTRY & BLOOD G ORDERABLES Performing Organization Address [facility] de Phone Number [facility] [address] [place] [address] * (ABNORMAL) OSMOLALITY,URINE (10/28/2008 19:25 EDT) Osmolality, Ur 327(L) 392 - 1090 MOS/KG [facility] 10/28/2008 19:2 5 EDT 10/28/2008 19:36 EDT Christopher Ga MD URINALYSIS ORDERABL ES Performing Organization Address [facility] de Phone Number [facility] [address] [place] [address] * HOLD GREEN TOP (10/28/2008 19:25 EDT) Hold Green Top Hold for further testing. Specimen will be held for 5 days. [facility] 10/28/2008 19:2 5 EDT 10/28/2008 19:34 EDT Christopher Ga MD LAB INFO SERVICE AN D SUPPORT & PHONE RESULT Performing Organization Address [facility] Phone Number [facility] [address] [place] [address] * SODIUM, URINE RANDOM (10/28/2008 19:25 EDT) Sodium, Ur 115.0 mEq/L [facility] Urine specimen (specimen) 10/28/2008 19:25 EDT 10/28/2008 19:36 EDT Christopher Ga MD URINALYSIS ORDERABL ES Performing Organization Address [facility] Phone Number [facility] [address] [place] [address] * GLUCOSE, SERUM (10/28/2008 19:25 EDT) Glucose, Serum 80 70 - 100 mg/dl [facility] Blood specimen (specimen) 10/28/2008 19:25 EDT 10/28/2008 19:34 EDT Christopher Ga MD CHEMISTRY & BLOOD G ORDERABLES Performing Organization Address [facility] Phone Number [facility] [address] [place] [address] * ELECTROLYTES (10/28/2008 19:25 EDT) Sodium 142 136 - 145 mEq/L [facility] Potassium 3.7 3.5 - 5.0 mEq/L [facility] Chloride 107 96 - 110 mEq/L [facility] CO2 29 24 - 32 mEq/L [facility] Blood specimen (specimen) 10/28/2008 19:25 EDT 10/28/2008 19:34 EDT Christopher Ga MD CHEMISTRY & BLOOD G ORDERABLES Performing Organization Address [facility] Phone Number [facility] [address] [place] [address] * CORTISOL (10/28/2008 19:25 EDT) Cortisol 20 ug/dl [facility] Comment: 7-9a.m.=4.3-22.4 3-5p.m.=3.1-16.7 Blood specimen (specimen) 10/28/2008 19:25 EDT 10/28/2008 19:34 EDT Christopher Ga MD CHEMISTRY & BLOOD G ORDERABLES Performing Organization Address [facility] de Phone Number [facility] [address] [place] [address] * TESTOSTERONE (10/28/2008 12:41 EDT) Testosterone, Total 398 241 - 827 ng/dL [facility] Blood specimen (specimen) 10/28/2008 12:41 EDT 10/28/2008 12:44 EDT Christopher Ga MD CHEMISTRY & BLOOD G ORDERABLES Performing Organization Address [facility] Phone Number [facility] [address] [place] [address] * (ABNORMAL) SODIUM (10/28/2008 11:55 EDT) Pathologist [facility] [place] Sodium 146(H) 136 - 145 mEq/L [facility] 10/28/2008 11:5 5 EDT 10/28/2008 12:24 EDT Christopher Ga MD CHEMISTRY & BLOOD G ORDERABLES Performing Organization Address [facility] Phone Number [facility] [address] [place] [address] * TESTOSTERONE (10/28/2008 11:55 EDT) Testosterone, Total Wrong tube/speci men type 241 - 827 ng/dL [facility] Blood specimen (specimen) 10/28/2008 11:55 EDT 10/28/2008 12:16 EDT Christopher Ga MD CHEMISTRY & BLOOD G ORDERABLES Performing Organization Address [facility] Phone Number [facility] [address] [place] [address] * CORTISOL (10/28/2008 11:55 EDT) Cortisol Wrong tube/speci men type ug/dl [facility] Comment:SPOKE TO ANKITA Blood specimen (specimen) 10/28/2008 11:55 EDT 10/28/2008 12:16 EDT Christopher Ga MD CHEMISTRY & BLOOD G ORDERABLES Performing Organization Address [facility] Phone Number [facility] [address] [place] [address] * SODIUM (10/28/2008 11:55 EDT) Sodium Wrong tube/speci men type 136 - 145 mEq/L [facility] Comment:SPOKE TO ANKITA Blood specimen (specimen) 10/28/2008 11:55 EDT 10/28/2008 12:16 EDT Christopher Ga MD CHEMISTRY & BLOOD G ORDERABLES Performing Organization Address [facility] Phone Number [facility] [address] [place] [address] * SODIUM, URINE RANDOM (10/28/2008 11:45 EDT) Sodium, Ur 214.0 mEq/L [facility] Urine specimen (specimen) 10/28/2008 11:45 EDT 10/28/2008 12:14 EDT Christopher Ga MD URINALYSIS ORDERABL ES Performing Organization Address [facility] Phone Number [facility] [address] [place] [address] * OSMOLALITY,URINE (10/28/2008 11:45 EDT) Osmolality, Ur 512 392 - 1090 MOS/KG [facility] Urine specimen (specimen) 10/28/2008 11:45 EDT 10/28/2008 12:14 EDT Christopher Ga MD URINALYSIS ORDERABL ES Performing Organization Address [facility] Phone Number [facility] [address] [place] [address] * SODIUM, URINE RANDOM (10/28/2008 10:13 EDT) Sodium, Ur 58.0 mEq/L [facility] Urine specimen (specimen) 10/28/2008 10:13 EDT 10/28/2008 10:18 EDT Christopher Ga MD URINALYSIS ORDERABL ES Performing Organization Address [facility] Phone Number [facility] [address] [place] [address] * (ABNORMAL) OSMOLALITY,URINE (10/28/2008 10:13 EDT) Osmolality, Ur 171(L) 392 - 1090 MOS/KG [facility] Urine specimen (specimen) 10/28/2008 10:13 EDT 10/28/2008 10:18 EDT Christopher Ga MD URINALYSIS ORDERABL ES Performing Organization Address [facility] Phone Number [facility] [address] [place] [address] * SODIUM (10/28/2008 10:13 EDT) Sodium 144 136 - 145 mEq/L [facility] Blood specimen (specimen) 10/28/2008 10:13 EDT 10/28/2008 10:18 EDT Christopher Ga MD CHEMISTRY & BLOOD G ORDERABLES Performing Organization Address [facility] Phone Number [facility] [address] [place] [address] * TESTS ADDED BY PHONE (10/28/2008 8:15 EDT) Pathologist [facility] [place] Tests to be added OSM [facility] Who Called DR [facility]I [facility] Location Code M3 [facility] Read Back/Confirmed ? YES [facility] 10/28/2008 8:15 EDT 10/28/2008 8:30 EDT Christopher Ga MD CHEMISTRY & BLOOD G ORDERABLES Performing Organization Address [facility] de Phone Number [facility] [address] [place] [address] * (ABNORMAL) OSMOLALITY,URINE (10/28/2008 8:15 EDT) [facility] Osmolality, Ur 295(L) 392 - 1090 MOS/KG [facility] 10/28/2008 8:15 EDT 10/28/2008 8:30 EDT Christopher Ga MD URINALYSIS ORDERABL ES Performing Organization Address [facility] de Phone Number [facility] [address] [place] [address] * SODIUM, URINE RANDOM (10/28/2008 8:15 EDT) [facility] Sodium, Ur 131.0 mEq/L [facility] Urine specimen (specimen) 10/28/2008 8:15 EDT 10/28/2008 8:30 EDT Christopher Ga MD URINALYSIS ORDERABL ES Performing Organization Address [facility] de Phone Number [facility] [address] [place] [address] * (ABNORMAL) ELECTROLYTES (10/28/2008 8:15 EDT) Pathologist [facility] [place] Sodium 143 136 - 145 mEq/L [facility] Potassium 3.3(L) 3.5 - 5.0 mEq/L [facility] Chloride 109 96 - 110 mEq/L [facility] CO2 30 24 - 32 mEq/L [facility] Blood specimen (specimen) 10/28/2008 8:15 EDT 10/28/2008 8:29 EDT Christopher Ga MD CHEMISTRY & BLOOD G ORDERABLES Performing Organization Address [facility] de Phone Number [facility] [address] [place] [address] * (ABNORMAL) ELECTROLYTES (10/28/2008 6:00 EDT) Sodium 136 136 - 145 mEq/L [facility] Potassium 2.8(LL) 3.5 - 5.0 mEq/L [facility] Comment:Sample retested, res ult confirmed Chloride 104 96 - 110 mEq/L [facility] CO2 25 24 - 32 mEq/L [facility] 10/28/2008 6:00 EDT 10/28/2008 6:16 EDT Christopher Ga MD CHEMISTRY & BLOOD G ORDERABLES Performing Organization Address [facility] de Phone Number [facility] [address] [place] [address] * (ABNORMAL) CREATININE (10/28/2008 6:00 EDT) Creatinine 0.65(L) 0.7 - 1.5 mg/dl [facility] GFR, Calculated >60 ml/min/1.7 3m2 [facility] 10/28/2008 6:00 EDT 10/28/2008 6:16 EDT Christopher Ga MD CHEMISTRY & BLOOD G ORDERABLES Performing Organization Address [facility] de Phone Number [facility] [address] [place] [address] * (ABNORMAL) BUN (10/28/2008 6:00 EDT) BUN 9(L) 10 - 26 mg/dl [facility] 10/28/2008 6:00 EDT 10/28/2008 6:16 EDT Christopher Ga MD CHEMISTRY & BLOOD G ORDERABLES Performing Organization Address [facility] de Phone Number [facility] [address] [place] [address] * SODIUM, URINE RANDOM (10/28/2008 6:00 EDT) Sodium, Ur 169.0 mEq/L [facility] Urine specimen (specimen) 10/28/2008 6:00 EDT 10/28/2008 6:15 EDT Christopher Ga MD URINALYSIS ORDERABL ES Performing Organization Address [facility] de Phone Number [facility] [address] [place] [address] * OSMOLALITY,URINE (10/28/2008 6:00 EDT) Osmolality, Ur 397 392 - 1090 MOS/KG [facility] Urine specimen (specimen) 10/28/2008 6:00 EDT 10/28/2008 6:15 EDT Christopher Ga MD URINALYSIS ORDERABL ES Performing Organization Address [facility] de Phone Number [facility] [address] [place] [address] * GLUCOSE, SERUM (10/28/2008 4:00 EDT) Glucose, Serum 74 70 - 100 mg/dl [facility] Blood specimen (specimen) 10/28/2008 4:00 EDT 10/28/2008 4:01 EDT Christopher Ga MD CHEMISTRY & BLOOD G ORDERABLES Performing Organization Address [facility] de Phone Number [facility] [address] [place] [address] * SODIUM (10/28/2008 4:00 EDT) Sodium 143 136 - 145 mEq/L [facility] Blood specimen (specimen) 10/28/2008 4:00 EDT 10/28/2008 4:01 EDT Christopher Ga MD CHEMISTRY & BLOOD G ORDERABLES Performing Organization Address [facility] [place] [address] * SODIUM, URINE RANDOM (10/28/2008 4:00 EDT) Sodium, Ur 177.0 mEq/L [facility] Urine specimen (specimen) 10/28/2008 4:00 EDT 10/28/2008 4:01 EDT Christopher Ga MD URINALYSIS ORDERABL ES Performing Organization Address [facility] [place] [address] * OSMOLALITY,URINE (10/28/2008 4:00 EDT) Osmolality, Ur 402 392 - 1090 MOS/KG [facility] Urine specimen (specimen) 10/28/2008 4:00 EDT 10/28/2008 4:01 EDT Christopher Ga MD URINALYSIS ORDERABL ES Performing Organization Address [facility] Phone Number [facility] [address] [address] * SODIUM, URINE RANDOM (10/28/2008 2:30 EDT) Sodium, Ur 175.0 mEq/L [facility] Urine specimen (specimen) 10/28/2008 2:30 EDT 10/28/2008 2:35 EDT Christopher Ga MD URINALYSIS ORDERABL ES Performing Organization Address [facility] Phone Number [facility] [address] [address] * OSMOLALITY,URINE (10/28/2008 2:30 EDT) Osmolality, Ur 398 392 - 1090 MOS/KG [facility] Urine specimen (specimen) 10/28/2008 2:30 EDT 10/28/2008 2:35 EDT Christopher Ga MD URINALYSIS ORDERABL ES Performing Organization Address [facility] de Phone Number [facility] [address] [place] [address] * SODIUM (10/28/2008 2:00 EDT) Sodium 144 136 - 145 mEq/L [facility] 10/28/2008 2:00 EDT 10/28/2008 2:14 EDT Christopher Ga MD CHEMISTRY & BLOOD G ORDERABLES Performing Organization Address [facility] Phone Number [facility] [address] [place] [address] * SODIUM, URINE RANDOM (10/27/2008 20:00 EDT) Sodium, Ur 213.0 mEq/L [facility] Comment:Sample retested, res ult confirmed Urine specimen (specimen) 10/27/2008 20:00 EDT 10/27/2008 20:09 EDT Christopher Ga MD URINALYSIS ORDERABL ES Performing Organization Address [facility] Phone Number [facility] [address] [place] [address] * OSMOLALITY,URINE (10/27/2008 20:00 EDT) Osmolality, Ur 544 392 - 1090 MOS/KG [facility] Urine specimen (specimen) 10/27/2008 20:00 EDT 10/27/2008 20:09 EDT Christopher Ga MD URINALYSIS ORDERABL ES Performing Organization Address [facility] Phone Number [facility] [address] [place] [address] * (ABNORMAL) ELECTROLYTES (10/27/2008 20:00 EDT) Sodium 147(H) 136 - 145 mEq/L [facility] Potassium 3.4(L) 3.5 - 5.0 mEq/L [facility] Chloride 112(H) 96 - 110 mEq/L [facility] CO2 28 24 - 32 mEq/L [facility] Blood specimen (specimen) 10/27/2008 20:00 EDT 10/27/2008 20:09 EDT Christopher Ga MD CHEMISTRY & BLOOD G ORDERABLES Performing Organization Address [facility] Co de Phone Number [facility] [address] [place] [address] * CREATININE (10/27/2008 20:00 EDT) Creatinine 0.80 0.7 - 1.5 mg/dl [facility] GFR, Calculated >60 ml/min/1.7 3m2 [facility] Blood specimen (specimen) 10/27/2008 20:00 EDT 10/27/2008 20:09 EDT Christopher Ga MD CHEMISTRY & BLOOD G ORDERABLES Performing Organization Address [facility] de Phone Number [facility] [address] [place] [address] * BUN (10/27/2008 20:00 EDT) BUN 13 10 - 26 mg/dl [facility] Blood specimen (specimen) 10/27/2008 20:00 EDT 10/27/2008 20:09 EDT Christopher Ga MD CHEMISTRY & BLOOD G ORDERABLES Performing Organization Address [facility] Co de Phone Number [facility] [address] [place] [address] * (ABNORMAL) SODIUM (10/27/2008 14:30 EDT) Sodium 152(H) 136 - 145 mEq/L [facility] Blood specimen (specimen) 10/27/2008 14:30 EDT 10/27/2008 14:47 EDT Christopher Ga MD CHEMISTRY & BLOOD G ORDERABLES Performing Organization Address [facility] Phone Number [facility] [address] [place] [address] * SODIUM, URINE RANDOM (10/27/2008 13:20 EDT) Sodium, Ur 19.0 mEq/L [facility] Urine specimen (specimen) 10/27/2008 13:20 EDT 10/27/2008 13:32 EDT Christopher Ga MD URINALYSIS ORDERABL ES Performing Organization Address [facility] Phone Number [facility] [address] [place] [address] * (ABNORMAL) OSMOLALITY,URINE (10/27/2008 13:20 EDT) Osmolality, Ur 116(L) 392 - 1090 MOS/KG [facility] Urine specimen (specimen) 10/27/2008 13:20 EDT 10/27/2008 13:32 EDT Christopher Ga MD URINALYSIS ORDERABL ES Performing Organization Address [facility] Phone Number [facility] [address] [place] [address] * SODIUM, URINE RANDOM (10/27/2008 12:23 EDT) Sodium, Ur 107.0 mEq/L [facility] Urine specimen (specimen) 10/27/2008 12:23 EDT 10/27/2008 12:23 EDT Christopher Ga MD URINALYSIS ORDERABL ES Performing Organization Address [facility] Phone Number [facility] [address] [place] [address] * OSMOLALITY,URINE (10/27/2008 12:23 EDT) Osmolality, Ur 808 392 - 1090 MOS/KG [facility] Urine specimen (specimen) 10/27/2008 12:23 EDT 10/27/2008 12:23 EDT Christopher Ga MD URINALYSIS ORDERABL ES Performing Organization Address [facility] Phone Number [facility] [address] [place] [address] * (ABNORMAL) SODIUM (10/27/2008 12:21 EDT) Sodium 150(H) 136 - 145 mEq/L [facility] Blood specimen (specimen) 10/27/2008 12:21 EDT 10/27/2008 12:21 EDT Christopher Ga MD CHEMISTRY & BLOOD G ORDERABLES Performing Organization Address [facility] Phone Number [facility] [address] [place] [address] * (ABNORMAL) SODIUM (10/27/2008 9:40 EDT) Sodium 151(H) 136 - 145 mEq/L [facility] Blood specimen (specimen) 10/27/2008 9:40 EDT 10/27/2008 9:59 EDT Christopher Ga MD CHEMISTRY & BLOOD G ORDERABLES Performing Organization Address [facility] Phone Number [facility] [address] [place] [address] * (ABNORMAL) SODIUM (10/27/2008 6:50 EDT) Sodium 152(H) 136 - 145 mEq/L [facility] Comment:Sample retested, res ult confirmed Blood specimen (specimen) 10/27/2008 6:50 EDT 10/27/2008 6:52 EDT Christopher Ga MD CHEMISTRY & BLOOD G ORDERABLES Performing Organization Address [facility] Phone Number [facility] [address] [place] [address] * (ABNORMAL) SODIUM (10/27/2008 6:15 EDT) Sodium 124(LL) 136 - 145 mEq/L [facility] Comment: Sample retested, result confirmed Question specimen contaminated. Repeat Requested Blood specimen (specimen) 10/27/2008 6:15 EDT 10/27/2008 6:16 EDT Christopher Ga MD CHEMISTRY & BLOOD G ORDERABLES Performing Organization Address [facility] Phone Number [facility] [address] [place] [address] * GLUCOSE, SERUM (10/27/2008 4:30 EDT) Glucose, Serum 86 70 - 100 mg/dl [facility] 10/27/2008 4:30 EDT 10/27/2008 4:34 EDT Christopher Ga MD CHEMISTRY & BLOOD G ORDERABLES Performing Organization Address [facility] Phone Number [facility] [address] [place] [address] * (ABNORMAL) ELECTROLYTES (10/27/2008 4:30 EDT) Sodium 154(H) 136 - 145 mEq/L [facility] Potassium 3.4(L) 3.5 - 5.0 mEq/L [facility] Chloride 118(H) 96 - 110 mEq/L [facility] CO2 28 24 - 32 mEq/L [facility] Blood specimen (specimen) 10/27/2008 4:30 EDT 10/27/2008 4:34 EDT Christopher Ga MD CHEMISTRY & BLOOD G ORDERABLES Performing Organization Address [facility] Phone Number [facility] [address] [place] [address] * CREATININE (10/27/2008 4:30 EDT) Creatinine 0.83 0.7 - 1.5 mg/dl [facility] GFR, Calculated >60 ml/min/1.7 3m2 [facility] Blood specimen (specimen) 10/27/2008 4:30 EDT 10/27/2008 4:34 EDT Christopher Ga MD CHEMISTRY & BLOOD G ORDERABLES Performing Organization Address [facility] Phone Number [facility] [address] [place] [address] * BUN (10/27/2008 4:30 EDT) BUN 14 10 - 26 mg/dl [facility] Blood specimen (specimen) 10/27/2008 4:30 EDT 10/27/2008 4:34 EDT Christopher Ga MD CHEMISTRY & BLOOD G ORDERABLES Performing Organization Address [facility] [place] [address] * (ABNORMAL) SODIUM (10/27/2008 1:30 EDT) Sodium 159(HH) 136 - 145 mEq/L [facility] Comment:Sample retested, res ult confirmed Blood specimen (specimen) 10/27/2008 1:30 EDT 10/27/2008 1:41 EDT Christopher Ga MD CHEMISTRY & BLOOD G ORDERABLES Performing Organization Address [facility] Phone Number [facility] [address] [place] [address] * SODIUM, URINE RANDOM (10/27/2008 0:15 EDT) Sodium, Ur 40.0 mEq/L [facility] Urine specimen (specimen) 10/27/2008 0:15 EDT 10/27/2008 0:19 EDT Christopher Ga MD URINALYSIS ORDERABL ES Performing Organization Address [facility] Phone Number [facility] [address] [place] [address] * (ABNORMAL) OSMOLALITY,URINE (10/27/2008 0:15 EDT) Osmolality, Ur 201(L) 392 - 1090 MOS/KG [facility] Urine specimen (specimen) 10/27/2008 0:15 EDT 10/27/2008 0:19 EDT Christopher Ga MD URINALYSIS ORDERABL ES Performing Organization Address [facility] de Phone Number [facility] [address] [place] [address] * (ABNORMAL) SODIUM (10/26/2008 22:48 EDT) Sodium 161(HH) 136 - 145 mEq/L [facility] Comment:Sample retested, res ult confirmed Blood specimen (specimen) 10/26/2008 22:48 EDT 10/26/2008 23:00 EDT Christopher Ga MD CHEMISTRY & BLOOD G ORDERABLES Performing Organization Address [facility] de Phone Number [facility] [address] [place] [address] * CORTISOL (10/26/2008 18:41 EDT) Cortisol 23 ug/dl [facility] Comment: 7-9a.m.=4.3-22.4 3-5p.m.=3.1-16.7 10/26/2008 18:4 1 EDT 10/26/2008 18:41 EDT Christopher Ga MD CHEMISTRY & BLOOD G ORDERABLES Performing Organization Address [facility] de Phone Number [facility] [address] [place] [address] * (ABNORMAL) SODIUM (10/26/2008 18:41 EDT) Sodium 154(H) 136 - 145 mEq/L [facility] Blood specimen (specimen) 10/26/2008 18:41 EDT 10/26/2008 18:41 EDT Christopher Ga MD CHEMISTRY & BLOOD G ORDERABLES Performing Organization Address [facility] de Phone Number [facility] [address] [place] [address] * (ABNORMAL) SODIUM (10/26/2008 9:59 EDT) Sodium 148(H) 136 - 145 mEq/L [facility] Blood specimen (specimen) 10/26/2008 9:59 EDT 10/26/2008 10:02 EDT Christopher Ga MD CHEMISTRY & BLOOD G ORDERABLES Performing Organization Address [facility] de Phone Number [facility] [address] [place] [address] * CORTISOL (10/26/2008 6:12 EDT) Cortisol 13 ug/dl [facility] Comment: 7-9a.m.=4.3-22.4 3-5p.m.=3.1-16.7 10/26/2008 6:12 EDT 10/26/2008 6:24 EDT Christopher Ga MD CHEMISTRY & BLOOD G ORDERABLES Performing Organization Address [facility] de Phone Number [facility] [address] [place] [address] * TESTS ADDED BY PHONE (10/26/2008 6:12 EDT) Tests to be added STAT JOSE [facility] Who Called TAMIE M3 FOR DR CHARLEEN [facility] Location Code M3 TRUE GARCIA Read Back/Confirmed ? YES [facility] 10/26/2008 6:12 EDT 10/26/2008 6:24 EDT Christopher Ga MD CHEMISTRY & BLOOD G ORDERABLES Performing Organization Address [facility]/ZIP Co de Phone Number [facility] [address] [place] [address] * (ABNORMAL) HEMAGRAM AND DIFFERENTIAL (10/26/2008 6:12 EDT) WBC 4.96 4.0 - 10.4 K/cmm [facility] RBC 3.12(L) 4.36 - 5.78 M/cmm [facility] Hemoglobin 7.9(L) 13.8 - 17.3 gm/dl [facility] HCT 23.9(L) 39.5 - 50.2 % [facility] MCV 76(L) 81 - 95 fl [facility] MCH 25.3(L) 27.6 - 33.0 pg [facility] MCHC 33.1 32.8 - 36.4 gm/dl [facility] PLT 98(L) 141 - 320 K/cmm [facility] RDW-CV 18.5(H) 11.8 - 14.1 % [facility] Neutrophils 67.8 45.5 - 79.7 % [facility] Lymphocytes 26.9 15.0 - 46.8 % [facility] Monocytes 4.7 1.8 - 12.0 % [facility] Eosinophils 0.3(L) 0.6 - 6.9 % [facility] Basophils 0.3 0.2 - 1.4 % [facility] ABS Neutrophils 3.36 2.20 - 8.85 K/cmm [facility] ABS Lymphs 1.34 1.09 - 3.30 K/cmm [facility] ABS Monocytes 0.23 0.1 - 0.8 K/cmm [facility] ABS Eosinophils 0.02(L) 0.03 - 0.61 K/cmm [facility] ABS Basophils 0.01 0.01 - 0.11 K/cmm [facility] Type of Diff: Automated [facility] Blood specimen (specimen) 10/26/2008 6:12 EDT 10/26/2008 6:24 EDT Christopher aG MD PACKAGES & DNA PROB E ORDERABLES [facility] [address] [place] [address] * GLUCOSE, SERUM (10/26/2008 6:12 EDT) Pathologist [facility] Glucose, Serum 71 70 - 100 mg/dl [facility] Blood specimen (specimen) 10/26/2008 6:12 EDT 10/26/2008 6:24 EDT Christopher Ga MD CHEMISTRY & BLOOD G ORDERABLES Performing Organization Address [facility] de Phone Number [facility] [address] [place] [address] * (ABNORMAL) ELECTROLYTES (10/26/2008 6:12 EDT) Pathologist [facility] Sodium 148(H) 136 - 145 mEq/L [facility] Potassium 3.6 3.5 - 5.0 mEq/L [facility] Chloride 113(H) 96 - 110 mEq/L [facility] CO2 29 24 - 32 mEq/L [facility] Blood specimen (specimen) 10/26/2008 6:12 EDT 10/26/2008 6:24 EDT Christopher Ga MD CHEMISTRY & BLOOD G ORDERABLES Performing Organization Address [facility] de Phone Number [facility] [address] [place] [address] * CREATININE (10/26/2008 6:12 EDT) Pathologist [facility] Creatinine 0.90 0.7 - 1.5 mg/dl [facility] GFR, Calculated >60 ml/min/1.7 3m2 [facility] Blood specimen (specimen) 10/26/2008 6:12 EDT 10/26/2008 6:24 EDT Christopher Ga MD CHEMISTRY & BLOOD G ORDERABLES Performing Organization Address [facility] de Phone Number [facility] [address] [place] [address] * BUN (10/26/2008 6:12 EDT) BUN 20 10 - 26 mg/dl [facility] Blood specimen (specimen) 10/26/2008 6:12 EDT 10/26/2008 6:24 EDT Christopher Ga MD CHEMISTRY & BLOOD G ORDERABLES Performing Organization Address [facility] Phone Number [facility] [address] [place] [address] * GLUCOSE, SERUM (10/26/2008 1:57 EDT) Glucose, Serum 71 70 - 100 mg/dl [facility] Blood specimen (specimen) 10/26/2008 1:57 EDT 10/26/2008 2:01 EDT Christopher Ga MD CHEMISTRY & BLOOD G ORDERABLES Performing Organization Address [facility] [place] [address] * (ABNORMAL) SODIUM (10/26/2008 1:57 EDT) Sodium 148(H) 136 - 145 mEq/L [facility] Blood specimen (specimen) 10/26/2008 1:57 EDT 10/26/2008 2:01 EDT Christopher Ga MD CHEMISTRY & BLOOD G ORDERABLES Performing Organization Address [facility] Phone Number [facility] [address] [place] [address] * (ABNORMAL) SODIUM (10/25/2008 22:00 EDT) Sodium 147(H) 136 - 145 mEq/L [facility] Blood specimen (specimen) 10/25/2008 22:00 EDT 10/25/2008 22:08 EDT Christopher Ga MD CHEMISTRY & BLOOD G ORDERABLES Performing Organization Address [facility] Phone Number [facility] [address] [place] [address] * GLUCOSE, GLUCOMETER (10/25/2008 20:59 EDT) Glucose, Fingerstick 93 70 - 100 mg/dl [facility] Breast Buffer ID [id number] Test Performed by Nursing Services [facility] 10/25/2008 20:5 9 EDT 10/25/2008 23:05 EDT Christopher Ga MD CHEMISTRY & BLOOD G ORDERABLES Performing Organization Address [facility] Co de Phone Number [facility] [address] [place] [address] * HOLD GREEN TOP (10/25/2008 20:05 EDT) Pathologist [facility] Hold Green Top Hold for further testing. Specimen will be held for 5 days. [facility] 10/25/2008 20:0 5 EDT 10/25/2008 20:18 EDT Christopher Ga MD LAB INFO SERVICE AN D SUPPORT & PHONE RESULT Performing Organization Address [facility] de Phone Number [facility] [address] [place] [address] * GLUCOSE, SERUM (10/25/2008 20:05 EDT) Pathologist [facility] Glucose, Serum 73 70 - 100 mg/dl [facility] Blood specimen (specimen) 10/25/2008 20:05 EDT 10/25/2008 20:18 EDT Christopher Ga MD CHEMISTRY & BLOOD G ORDERABLES Performing Organization Address [facility] Co de Phone Number [facility] [address] [place] [address] * (ABNORMAL) ELECTROLYTES (10/25/2008 20:05 EDT) Sodium 147(H) 136 - 145 mEq/L [facility] Potassium 3.7 3.5 - 5.0 mEq/L [facility] Chloride 113(H) 96 - 110 mEq/L [facility] CO2 27 24 - 32 mEq/L [facility] Blood specimen (specimen) 10/25/2008 20:05 EDT 10/25/2008 20:18 EDT Christopher Ga MD CHEMISTRY & BLOOD G ORDERABLES Performing Organization Address [facility] de Phone Number [facility] [address] [place] [address] * CREATININE (10/25/2008 20:05 EDT) Creatinine 0.80 0.7 - 1.5 mg/dl [facility] GFR, Calculated >60 ml/min/1.7 3m2 [facility] Blood specimen (specimen) 10/25/2008 20:05 EDT 10/25/2008 20:18 EDT Christopher Ga MD CHEMISTRY & BLOOD G ORDERABLES Performing Organization Address [facility] de Phone Number [facility] [address] [place] [address] * BUN (10/25/2008 20:05 EDT) BUN 16 10 - 26 mg/dl [facility] Blood specimen (specimen) 10/25/2008 20:05 EDT 10/25/2008 20:18 EDT Christopher Ga MD CHEMISTRY & BLOOD G ORDERABLES Performing Organization Address [facility] de Phone Number [facility] [address] [place] [address] * (ABNORMAL) SODIUM (10/25/2008 18:00 EDT) Sodium 148(H) 136 - 145 mEq/L [facility] Blood specimen (specimen) 10/25/2008 18:00 EDT 10/25/2008 18:02 EDT Christopher Ga MD CHEMISTRY & BLOOD G ORDERABLES Performing Organization Address [facility]/ZIP Co de Phone Number [facility] [address] [place] [address] * (ABNORMAL) SODIUM (10/25/2008 16:00 EDT) Sodium 148(H) 136 - 145 mEq/L [facility] Blood specimen (specimen) 10/25/2008 16:00 EDT 10/25/2008 16:24 EDT Christopher Ga MD CHEMISTRY & BLOOD G ORDERABLES [facility] [address] [place] [address] * PORTABLE CHEST 1 VIEW (10/25/2008 12:50 EDT) Anatomical Region Laterality Modality Other 10/25/2008 12:5 0 EDT 10/25/2008 16:18 EDT Narrative 10/25/2008 16:18 EDT PORTABLE CHEST 1 VIEW ??Oct 25, 2008 12:50:00 PM Clinical History: PICC placement for Abx + access - # 5 FR for solo PICC. DX: adrenal crisis please check placement. Comparison: 10/23/2008. Findings: Portable AP view of the chest demonstrates a transesophageal catheter is in the stomach with the tip in the fundus. There is a right-sided PICC line with the tip at the level of the right atrium. There has been an interval increase in the coalescent bilateral hazy opacities predominantly in the lung bases. The costophrenic angles are blunted. Impression: 1. Increasing bilateral hazy opacities concerning for multilobar pneumonia. 2. Tip of the right PICC line in the region of the right atrium. 3. Bilateral small pleural effusions. I have personally reviewed the images and the above interpretation and agree with the findings. Procedure Note Kelly Salazar MD - 10/26/2008 PORTABLE CHEST 1 VIEW Oct 25, 2008 12:50:00 PM Clinical History: PICC placement for Abx + access - # 5 FR for solo PICC. DX: adrenal crisis please check placement. Comparison: 10/23/2008. Findings: Portable AP view of the chest demonstrates a transesophageal catheter is in the stomach with the tip in the fundus. There is a right-sided PICC line with the tip at the level of the right atrium. There has been an interval increase in the coalescent bilateral hazy opacities predominantly in the lung bases. The costophrenic angles are blunted. Impression: 1. Increasing bilateral hazy opacities concerning for multilobar pneumonia. 2. Tip of the right PICC line in the region of the right atrium. 3. Bilateral small pleural effusions. I have personally reviewed the images and the above interpretation and agree with the findings. Christopher Ga MD IMG DIAGNOSTIC IMAG ING ORDERABLES * GLUCOSE, SERUM (10/25/2008 12:45 EDT) Glucose, Serum 83 70 - 100 mg/dl [facility] 10/25/2008 12:4 5 EDT 10/25/2008 12:56 EDT Christopher Ga MD CHEMISTRY & BLOOD G ORDERABLES Performing Organization Address [facility] de Phone Number [facility] [address] [place] [address] * (ABNORMAL) SODIUM (10/25/2008 12:45 EDT) Sodium 148(H) 136 - 145 mEq/L [facility] Blood specimen (specimen) 10/25/2008 12:45 EDT 10/25/2008 12:56 EDT Christopher Ga MD CHEMISTRY & BLOOD G ORDERABLES Performing Organization Address [facility] de Phone Number [facility] [address] [place] [address] * (ABNORMAL) SODIUM (10/25/2008 10:00 EDT) Sodium 146(H) 136 - 145 mEq/L [facility] Blood specimen (specimen) 10/25/2008 10:00 EDT 10/25/2008 10:07 EDT Christopher Ga MD CHEMISTRY & BLOOD G ORDERABLES Performing Organization Address [facility] de Phone Number [facility] [address] [place] [address] * OSMOLALITY,URINE (10/25/2008 8:06 EDT) Osmolality, Ur 513 392 - 1090 MOS/KG [facility] 10/25/2008 8:06 EDT 10/25/2008 8:06 EDT Christopher Ga MD URINALYSIS ORDERABL ES Performing Organization Address [facility] de Phone Number [facility] [address] [place] [address] * SODIUM, URINE RANDOM (10/25/2008 8:06 EDT) Pathologist [facility] Sodium, Ur <5.0 mEq/L [facility] 10/25/2008 8:06 EDT 10/25/2008 8:06 EDT Christopher Ga MD URINALYSIS ORDERABL ES Performing Organization Address [facility] Phone Number [facility] [address] [place] [address] * (ABNORMAL) OSMOLALITY (10/25/2008 8:04 EDT) [facility] Osmolality Cintia 310(H) 280 - 300 MOS/KG [facility] Blood specimen (specimen) 10/25/2008 8:04 EDT 10/25/2008 8:04 EDT Christopher Ga MD CHEMISTRY & BLOOD G ORDERABLES Performing Organization Address [facility] Phone Number [facility] [address] [place] [address] * GLUCOSE, SERUM (10/25/2008 8:04 EDT) Pathologist [facility] Glucose, Serum 80 70 - 100 mg/dl [facility] Blood specimen (specimen) 10/25/2008 8:04 EDT 10/25/2008 8:04 EDT Christopher Ga MD CHEMISTRY & BLOOD G ORDERABLES Performing Organization Address [facility] Co de Phone Number [facility] [address] [place] [address] * (ABNORMAL) ELECTROLYTES (10/25/2008 8:04 EDT) Sodium 148(H) 136 - 145 mEq/L [facility] Potassium 3.8 3.5 - 5.0 mEq/L [facility] Chloride 114(H) 96 - 110 mEq/L [facility] CO2 27 24 - 32 mEq/L [facility] Blood specimen (specimen) 10/25/2008 8:04 EDT 10/25/2008 8:04 EDT Christopher Ga MD CHEMISTRY & BLOOD G ORDERABLES Performing Organization Address [facility] de Phone Number [facility] [address] [place] [address] * (ABNORMAL) GLUCOSE, SERUM (10/25/2008 4:49 EDT) Glucose, Serum 101(H) 70 - 100 mg/dl [facility] 10/25/2008 4:49 EDT 10/25/2008 4:49 EDT Christopher Ga MD CHEMISTRY & BLOOD G ORDERABLES Performing Organization Address [facility] de Phone Number [facility] [address] [place] [address] * POTASSIUM (10/25/2008 4:49 EDT) Potassium 3.7 3.5 - 5.0 mEq/L [facility] 10/25/2008 4:49 EDT 10/25/2008 4:49 EDT Christopher Ga MD CHEMISTRY & BLOOD G ORDERABLES Performing Organization Address [facility] Co de Phone Number [facility] [address] [place] [address] * CO2 (10/25/2008 4:49 EDT) CO2 25 24 - 32 mEq/L [facility] 10/25/2008 4:49 EDT 10/25/2008 4:49 EDT Christopher Ga MD CHEMISTRY & BLOOD G ORDERABLES Performing Organization Address [facility] Phone Number [facility] [address] [place] [address] * (ABNORMAL) CHLORIDE (10/25/2008 4:49 EDT) Chloride 115(H) 96 - 110 mEq/L [facility] 10/25/2008 4:49 EDT 10/25/2008 4:49 EDT Christopher Ga MD CHEMISTRY & BLOOD G ORDERABLES Performing Organization Address [facility] Phone Number [facility] [address] [place] [address] * (ABNORMAL) OSMOLALITY (10/25/2008 4:49 EDT) Osmolality Cintia 309(H) 280 - 300 MOS/KG [facility] 10/25/2008 4:49 EDT 10/25/2008 4:49 EDT Christopher Ga MD CHEMISTRY & BLOOD G ORDERABLES Performing Organization Address [facility] Phone Number [facility] [address] [place] [address] * (ABNORMAL) SODIUM (10/25/2008 4:49 EDT) Sodium 148(H) 136 - 145 mEq/L [facility] 10/25/2008 4:49 EDT 10/25/2008 4:49 EDT Christopher Ga MD CHEMISTRY & BLOOD G ORDERABLES Performing Organization Address [facility] Phone Number [facility] [address] [place] [address] * (ABNORMAL) CREATININE (10/25/2008 4:49 EDT) Creatinine 0.69(L) 0.7 - 1.5 mg/dl [facility] GFR, Calculated >60 ml/min/1.7 3m2 [facility] 10/25/2008 4:49 EDT 10/25/2008 4:49 EDT Christopher Ga MD CHEMISTRY & BLOOD G ORDERABLES Performing Organization Address [facility] Phone Number [facility] [address] [place] [address] * BUN (10/25/2008 4:49 EDT) Pathologist [facility] BUN 10 10 - 26 mg/dl [facility] 10/25/2008 4:49 EDT 10/25/2008 4:49 EDT Christopher Ga MD CHEMISTRY & BLOOD G ORDERABLES Performing Organization Address [facility] Phone Number [facility] [address] [place] [address] * (ABNORMAL) OSMOLALITY,URINE (10/25/2008 3:59 EDT) Pathologist [facility] Osmolality, Ur 143(L) 392 - 1090 MOS/KG [facility] 10/25/2008 3:59 EDT 10/25/2008 3:59 EDT Christopher Ga MD URINALYSIS ORDERABL ES Performing Organization Address [facility] Phone Number [facility] [address] [place] [address] * SODIUM, URINE RANDOM (10/25/2008 3:59 EDT) Pathologist [facility] Sodium, Ur <5.0 mEq/L [facility] 10/25/2008 3:59 EDT 10/25/2008 3:59 EDT Christopher Ga MD URINALYSIS ORDERABL ES Performing Organization Address [facility] Phone Number [facility] [address] [place] [address] * OSMOLALITY,URINE (10/25/2008 0:15 EDT) Osmolality, Ur 413 392 - 1090 MOS/KG [facility] 10/25/2008 0:15 EDT 10/25/2008 0:15 EDT Christopher Ga MD URINALYSIS ORDERABL ES Performing Organization Address [facility] Phone Number [facility] [address] [place] [address] * SODIUM, URINE RANDOM (10/25/2008 0:15 EDT) Pathologist [facility] Sodium, Ur 9.0 mEq/L [facility] 10/25/2008 0:15 EDT 10/25/2008 0:15 EDT Christopher Ga MD URINALYSIS ORDERABL ES Performing Organization Address [facility] Phone Number [facility] [address] [place] [address] * (ABNORMAL) GLUCOSE, SERUM (10/25/2008 0:15 EDT) Pathologist [facility] Glucose, Serum 113(H) 70 - 100 mg/dl [facility] 10/25/2008 0:15 EDT 10/25/2008 0:15 EDT Christopher Ga MD CHEMISTRY & BLOOD G ORDERABLES Performing Organization Address [facility] Phone Number [facility] [address] [place] [address] * (ABNORMAL) OSMOLALITY (10/25/2008 0:15 EDT) Osmolality Cintia 309(H) 280 - 300 MOS/KG [facility] 10/25/2008 0:15 EDT 10/25/2008 0:15 EDT Christopher Ga MD CHEMISTRY & BLOOD G ORDERABLES Performing Organization Address [facility] Phone Number [facility] [address] [place] [address] * (ABNORMAL) ELECTROLYTES (10/25/2008 0:15 EDT) Sodium 147(H) 136 - 145 mEq/L [facility] Potassium 3.9 3.5 - 5.0 mEq/L [facility] Chloride 115(H) 96 - 110 mEq/L [facility] CO2 24 24 - 32 mEq/L [facility] 10/25/2008 0:15 EDT 10/25/2008 0:15 EDT Christopher Ga MD CHEMISTRY & BLOOD G ORDERABLES Performing Organization Address [facility] Phone Number [facility] [address] [place] [address] * SODIUM, URINE RANDOM (10/24/2008 20:00 EDT) Pathologist [facility] Sodium, Ur 92.0 mEq/L [facility] 10/24/2008 20:0 0 EDT 10/24/2008 20:23 EDT Christopher Ga MD URINALYSIS ORDERABL ES Performing Organization Address [facility] Phone Number [facility] [address] [place] [address] * OSMOLALITY,URINE (10/24/2008 20:00 EDT) Pathologist [facility] Osmolality, Ur 594 392 - 1090 MOS/KG [facility] 10/24/2008 20:0 0 EDT 10/24/2008 20:23 EDT Christopher Ga MD URINALYSIS ORDERABL ES Performing Organization Address [facility] Phone Number [facility] [address] [place] [address] * (ABNORMAL) OSMOLALITY (10/24/2008 20:00 EDT) Osmolality Cintia 319(H) 280 - 300 MOS/KG [facility] 10/24/2008 20:0 0 EDT 10/24/2008 20:20 EDT Christopher Ga MD CHEMISTRY & BLOOD G ORDERABLES Performing Organization Address [facility] Phone Number [facility] [address] [place] [address] * SODIUM, URINE RANDOM (10/23/2008 22:30 EDT) Sodium, Ur 70.0 mEq/L [facility] Comment:Sample retested, res ult confirmed 10/23/2008 22:3 0 EDT 10/23/2008 22:33 EDT Christopher Ga MD URINALYSIS ORDERABL ES Performing Organization Address [facility] Phone Number [facility] [address] [place] [address] * OSMOLALITY, URINE (10/23/2008 22:30 EDT) Osmolality, Ur 426 392 - 1090 MOS/KG [facility] 10/23/2008 22:3 0 EDT 10/23/2008 22:33 EDT Christopher Ga MD URINALYSIS ORDERABL ES Performing Organization Address [facility] Phone Number [facility] [address] [place] [address] * (ABNORMAL) URINALYSIS, CHEMICAL (10/23/2008 22:30 EDT) Color, UA Yellow [facility] Clarity, UA Clear [facility] Glucose, UA Norm NORM [facility] Bilirubin, UA Neg NEG [facility] Ketones, UA Neg NEG [facility] Specific Dennis, Urine 1.015 1.005 - 1.02 [facility] Blood, UA Trace(A) NEG [facility] pH, UA 5.0 5.0 - 9.0 [facility] Protein, UA Neg NEG [facility] Urobilinogen, UA Norm NORM mg/dL [facility] Nitrite, UA Neg NEG [facility] Leuk Esterase Small(A) NEG [facility] 10/23/2008 22:3 0 EDT 10/23/2008 22:34 EDT Christopher Ga MD URINALYSIS ORDERABL ES Performing Organization Address [facility] de Phone Number [facility] [address] [place] [address] * URINE MICROSCOPIC (10/23/2008 22:30 EDT) WBC, UA 1 to 5 0 - 5 /HPF [facility] RBC, UA less than 1 0 - 5 /HPF [facility] Squam Epithel, UA None seen NS /HPF [facility] Renal Epithel, UA None seen NS /HPF [facility] Bacteria, UA None seen NS /HPF [facility] Crystals, UA None seen /HPF [facility] Hyaline Casts, UA None seen /LPF [facility] Comment Microscopic results are unreliable on urines unrefrig >2hrs or refrig >8hrs. [facility] 10/23/2008 22:3 0 EDT 10/23/2008 22:34 EDT Christopher Ga MD URINALYSIS ORDERABL ES Performing Organization Address [facility] de Phone Number [facility] [address] [place] [address] * (ABNORMAL) POTASSIUM (10/23/2008 20:49 EDT) Potassium 6.1(HH) 3.5 - 5.0 mEq/L [facility] Comment: Hemolysis may elevate potassium result. Slight hemolysis QNS to repeat 10/23/2008 20:4 9 EDT 10/23/2008 20:54 EDT Christopher Ga MD CHEMISTRY & BLOOD G ORDERABLES Performing Organization Address [facility] de Phone Number [facility] [address] [place] [address] * CREATININE (10/23/2008 20:49 EDT) Creatinine 0.80 0.7 - 1.5 mg/dl [facility] Comment:Slight hemolysis GFR, Calculated >60 ml/min/1.7 3m2 [facility] Comment:Slight hemolysis 10/23/2008 20:4 9 EDT 10/23/2008 20:54 EDT Christopher Ga MD CHEMISTRY & BLOOD G ORDERABLES Performing Organization Address [facility] de Phone Number [facility] [address] [place] [address] * BUN (10/23/2008 20:49 EDT) BUN 13 10 - 26 mg/dl [facility] Comment: Results may be affected due to hemolysis. Slight hemolysis 10/23/2008 20:4 9 EDT 10/23/2008 20:54 EDT Christopher Ga MD CHEMISTRY & BLOOD G ORDERABLES Performing Organization Address [facility] Phone Number [facility] [address] [place] [address] * (ABNORMAL) SODIUM (10/23/2008 20:49 EDT) Sodium 153(H) 136 - 145 mEq/L [facility] Comment:Slight hemolysis 10/23/2008 20:4 9 EDT 10/23/2008 20:54 EDT Christopher Ga MD CHEMISTRY & BLOOD G ORDERABLES Performing Organization Address [facility] Phone Number [facility] [address] [place] [address] * (ABNORMAL) ELECTROLYTES (10/23/2008 16:00 EDT) Sodium 150(H) 136 - 145 mEq/L [facility] Potassium 4.0 3.5 - 5.0 mEq/L [facility] Chloride 117(H) 96 - 110 mEq/L [facility] CO2 22(L) 24 - 32 mEq/L [facility] 10/23/2008 16:0 0 EDT 10/23/2008 16:07 EDT Christopher Ga MD CHEMISTRY & BLOOD G ORDERABLES Performing Organization Address [facility] de Phone Number [facility] [address] [place] [address] * GLUCOSE, SERUM (10/23/2008 8:45 EDT) Glucose, Serum 79 70 - 100 mg/dl [facility] 10/23/2008 8:45 EDT 10/23/2008 9:01 EDT Thad Marroquin MD MSc CHEMISTRY & BLOOD G ORDERABLES Performing Organization Address [facility] de Phone Number [facility] [address] [place] [address] * CREATININE (10/23/2008 8:45 EDT) Creatinine 0.80 0.7 - 1.5 mg/dl [facility] GFR, Calculated >60 ml/min/1.7 3m2 [facility] 10/23/2008 8:45 EDT 10/23/2008 9:01 EDT Thad Marroquin MD, MSc CHEMISTRY & BLOOD G ORDERABLES Performing Organization Address [facility] de Phone Number [facility] [address] [place] [address] * BUN (10/23/2008 8:45 EDT) BUN 10 10 - 26 mg/dl [facility] 10/23/2008 8:45 EDT 10/23/2008 9:01 EDT Thad Marroquin MD, MSc CHEMISTRY & BLOOD G ORDERABLES Performing Organization Address [facility] de Phone Number [facility] [address] [place] [address] * (ABNORMAL) ELECTROLYTES (10/23/2008 8:45 EDT) Pathologist [facility] Sodium 148(H) 136 - 145 mEq/L [facility] Potassium 3.4(L) 3.5 - 5.0 mEq/L [facility] Chloride 117(H) 96 - 110 mEq/L [facility] CO2 22(L) 24 - 32 mEq/L [facility] 10/23/2008 8:45 EDT 10/23/2008 9:01 EDT Thad Marroquin MD MSc CHEMISTRY & BLOOD G ORDERABLES [facility] [address] [place] [address] * (ABNORMAL) HEMAGRAM AND DIFFERENTIAL (10/23/2008 8:45 EDT) Pathologist [facility] WBC 2.96(L) 4.0 - 10.4 K/cmm [facility] RBC 4.48 4.36 - 5.78 M/cmm [facility] Hemoglobin 11.5(L) 13.8 - 17.3 gm/dl [facility] HCT 33.7(L) 39.5 - 50.2 % [facility] MCV 75(L) 81 - [address] [facility] MCH 25.6(L) 27.6 - 33.[address] [facility] MCHC 34.1 32.8 - 36.4 gm/dl [facility] PLT 97(L) 141 - 320 K/cmm [facility] RDW-CV 17.8(H) 11.8 - 14.1 % [facility] Neutrophils 78.4 45.5 - 79.7 % [facility] Lymphocytes 14.5(L) 15.0 - 46.8 % [facility] Monocytes 6.6 1.8 - 12.0 % [facility] Eosinophils 0.4(L) 0.6 - 6.9 % [facility] Basophils 0.1(L) 0.2 - 1.4 % [facility] ABS Neutrophils 2.32 2.20 - 8.85 K/cmm [facility] ABS Lymphs 0.43(L) 1.09 - 3.30 K/cmm [facility] ABS Monocytes 0.19 0.1 - 0.8 K/cmm [facility] ABS Eosinophils 0.01(L) 0.03 - 0.61 K/cmm [facility] ABS Basophils 0.00(L) 0.01 - 0.11 K/cmm [facility] Type of Diff: Automated [facility]LE[facility] 10/23/2008 8:45 EDT 10/23/2008 9:01 EDT Thad Marroquin MD MSc PACKAGES & DNA PROB E ORDERABLES Performing Organization Address [facility] Phone Number [facility] [address] [place] [address] * GLUCOSE, SERUM (10/23/2008 6:15 EDT) Glucose, Serum 80 70 - 100 mg/dl [facility] 10/23/2008 6:15 EDT 10/23/2008 6:35 EDT Thad Marroquin MD, MSc CHEMISTRY & BLOOD G ORDERABLES Performing Organization Address [facility] Phone Number [facility] [address] [place] [address] * CREATININE (10/23/2008 6:15 EDT) Creatinine 0.80 0.7 - 1.5 mg/dl [facility] GFR, Calculated >60 ml/min/1.7 3m2 [facility] 10/23/2008 6:15 EDT 10/23/2008 6:35 EDT Thad Marroquin MD, MSc CHEMISTRY & BLOOD G ORDERABLES Performing Organization Address [facility] Phone Number [facility] [address] [place] [address] * BUN (10/23/2008 6:15 EDT) BUN 11 10 - 26 mg/dl [facility] 10/23/2008 6:15 EDT 10/23/2008 6:35 EDT Thad Marroquin MD MSc CHEMISTRY & BLOOD G ORDERABLES Performing Organization Address [facility] de Phone Number [facility] [address] [place] [address] * (ABNORMAL) ELECTROLYTES (10/23/2008 6:15 EDT) Pathologist [facility] Sodium 146(H) 136 - 145 mEq/L [facility] Potassium 2.6(LL) 3.5 - 5.0 mEq/L [facility] Comment:Sample retested, res ult confirmed Chloride 112(H) 96 - 110 mEq/L [facility] CO2 23(L) 24 - 32 mEq/L [facility] 10/23/2008 6:15 EDT 10/23/2008 6:35 EDT Thad Marroquin MD, MSc CHEMISTRY & BLOOD G ORDERABLES Performing Organization Address [facility] Phone Number [facility] [address] [place] [address] * (ABNORMAL) HEMAGRAM AND DIFFERENTIAL (10/23/2008 6:15 EDT) Pathologist [facility] WBC 1.91(L) 4.0 - 10.4 K/cmm [facility] RBC 4.16(L) 4.36 - 5.78 M/cmm [facility] Hemoglobin 10.7(L) 13.8 - 17.3 gm/dl [facility] HCT 31.3(L) 39.5 - 50.2 % [facility] MCV 75(L) 81 - 95 fl [facility] MCH 25.8(L) 27.6 - 33.0 pg [facility] MCHC 34.4 32.8 - 36.4 gm/dl [facility] PLT 107(L) 141 - 320 K/cmm [facility] RDW-CV 18.7(H) 11.8 - 14.1 % [facility] Neutrophils 59.0 45.5 - 79.7 % [facility] % Bands 13.0 % [facility] Lymphocytes 26.0 15.0 - 46.8 % [facility] Monocytes 2.0 1.8 - 12.0 % [facility] ABS Neutrophils 1.12(L) 2.20 - 8.85 K/cmm [facility] ABS Bands 0.25 K/cmm [facility] ABS Lymphs 0.50(L) 1.09 - 3.30 K/cmm [facility] ABS Monocytes 0.04(L) 0.1 - 0.8 K/cmm [facility] RBC Morphology 1+ Anisocytosis 2+ Microcytes NRBC seen on scan [facility] WBC Morphology 1+ Toxic granulation 1+ Dohle bodies [facility] Type of Diff: Manual [facility] Comment Rev'd by Pathologist [facility] 10/23/2008 6:15 EDT 10/23/2008 6:35 EDT Thad Marroquin MD MSc PACKAGES & DNA PROB E ORDERABLES Performing Organization Address [facility] Co de Phone Number [facility] [address] [place] [address] * GLUCOSE, GLUCOMETER (10/23/2008 6:02 EDT) Glucose, Fingerstick 89 70 - 100 mg/dl [facility] Breast Buffer ID [id number] Test Performed by Nursing Services [facility] 10/23/2008 6:02 EDT 10/25/2008 4:28 EDT Christopher Ga MD CHEMISTRY & BLOOD G ORDERABLES Performing Organization Address [facility] Co de Phone Number [facility] [address] [place] [address] * (ABNORMAL) BLOOD GAS, G3 ISTAT (10/23/2008 5:49 EDT) pH, i-STAT 7.39 7.35 - 7.45 [facility] pCO2, i-STAT 35 35 - 45 mmHg [facility] pO2, i-STAT 45(L) 85 - 100 mmHg [facility] TCO2, i-STAT 22 mEq/L [facility] O2 Saturation 81 % [facility] Base Deficit 4 [facility] Temperature 37.0 C [facility] FIO2 .28 [facility] Sample Type VENOUS [facility] cte teacher ID [id number] Test Performed by Respiratory For non-arterial reference ranges, please see ISTAT procedure. [facility] 10/23/2008 5:49 EDT 10/23/2008 5:58 EDT Thad Marroquin MD, MSc CHEMISTRY & BLOOD G ORDERABLES Performing Organization Address [facility] Co de Phone Number [facility] [address] [place] [address] * (ABNORMAL) BLOOD GAS, G3 ISTAT (10/23/2008 2:13 EDT) pH, i-STAT 7.34(L) 7.35 - 7.45 [facility] pCO2, i-STAT 43 35 - 45 mmHg [facility] pO2, i-STAT 81(L) 85 - 100 mmHg [facility] TCO2, i-STAT 24 mEq/L [facility] O2 Saturation 95 % TRUE [facility] Base Deficit 3 FLEMARSHAEmerald [facility] Sample Type NOT GIVEN [facility] [id number] Test performed by Chemistry [facility] 10/23/2008 2:13 EDT 10/23/2008 2:19 EDT Thad Marroquin MD, MSc CHEMISTRY & BLOOD G ORDERABLES Performing Organization Address [facility] Co de Phone Number [facility] [address] [place] [address] * (ABNORMAL) ELECTROLYTES (10/23/2008 2:00 EDT) Sodium 146(H) 136 - 145 mEq/L [facility] Potassium 3.8 3.5 - 5.0 mEq/L [facility] Chloride 112(H) 96 - 110 mEq/L [facility] CO2 24 24 - 32 mEq/L [facility] 10/23/2008 2:00 EDT 10/23/2008 2:10 EDT Thad Marroquin MD, MSc CHEMISTRY & BLOOD G ORDERABLES Performing Organization Address [facility] Co de Phone Number [facility] [address] [place] [address] * ELECTROLYTES (10/23/2008 2:00 EDT) 10/23/2008 2:00 EDT 10/23/2008 2:07 EDT Thad Marroquin MD, MSc CHEMISTRY & BLOOD G ORDERABLES Performing Organization Address [facility] de Phone Number [facility] [address] [place] [address] * BACTERIAL CULTURE, BLOOD (10/23/2008 2:00 EDT) Specimen Description Blood Right Arm Total volume of blood collected: 6 ml Pediatric bottle received Volume of blood collected may not be adequate for detection of bacteremia/se pticemia. [facility] Result No growth [facility] Report Status Final [id number] [facility] 10/23/2008 2:00 EDT 10/23/2008 7:45 EDT Thad Marroquin MD, MSc MICROBIOLOGY - GENE RAL ORDERABLES Performing Organization Address [facility] de Phone Number [facility] [address] [place] [address] * (ABNORMAL) GLUCOSE, GLUCOMETER (10/22/2008 21:12 EDT) Glucose, Fingerstick 122(H) 70 - 100 mg/dl [facility] Breast Buffer ID [id number] Test Performed by Nursing Services [facility] 10/22/2008 21:1 2 EDT 10/22/2008 21:23 EDT Christopher Ga MD CHEMISTRY & BLOOD G ORDERABLES Performing Organization Address [facility] Co de Phone Number [facility] [address] [place] [address] * (ABNORMAL) GLUCOSE, SERUM (10/22/2008 18:07 EDT) Glucose, Serum 109(H) 70 - 100 mg/dl [facility] 10/22/2008 18:0 7 EDT 10/22/2008 18:07 EDT Christopher Ga MD CHEMISTRY & BLOOD G ORDERABLES Performing Organization Address [facility] de Phone Number [facility] [address] [place] [address] * ELECTROLYTES (10/22/2008 18:07 EDT) Sodium 141 136 - 145 mEq/L [facility] Potassium 3.7 3.5 - 5.0 mEq/L [facility] Chloride 108 96 - 110 mEq/L [facility] CO2 24 24 - 32 mEq/L [facility] 10/22/2008 18:0 7 EDT 10/22/2008 18:07 EDT Christopher Ga MD CHEMISTRY & BLOOD G ORDERABLES Performing Organization Address [facility] Phone Number [facility] [address] [place] [address] * (ABNORMAL) ELECTROLYTES (10/22/2008 11:15 EDT) Sodium 142 136 - 145 mEq/L [facility] Potassium 4.2 3.5 - 5.0 mEq/L [facility] Chloride 107 96 - 110 mEq/L [facility] CO2 23(L) 24 - 32 mEq/L [facility] 10/22/2008 11:1 5 EDT 10/22/2008 11:15 EDT Christopher Ga MD CHEMISTRY & BLOOD G ORDERABLES Performing Organization Address [facility] de Phone Number [facility] [address] [place] [address] * (ABNORMAL) GLUCOSE, GLUCOMETER (10/22/2008 11:05 EDT) Glucose, Fingerstick 114(H) 70 - 100 mg/dl [facility] Breast Buffer ID [id number] Test Performed by Nursing Services [facility] 10/22/2008 11:0 5 EDT 10/22/2008 23:16 EDT Thad Marroquin MD, MSc CHEMISTRY & BLOOD G ORDERABLES Performing Organization Address [facility] Phone Number [facility] [address] [place] [address] * (ABNORMAL) ELECTROLYTES (10/22/2008 7:36 EDT) Sodium 134(L) 136 - 145 mEq/L [facility] Potassium 4.5 3.5 - 5.0 mEq/L [facility] Chloride 106 96 - 110 mEq/L [facility] CO2 21(L) 24 - 32 mEq/L [facility] 10/22/2008 7:36 EDT 10/22/2008 7:36 EDT Christopher Ga MD CHEMISTRY & BLOOD G ORDERABLES Performing Organization Address [facility] Phone Number [facility] [address] [place] [address] * (ABNORMAL) GLUCOSE, GLUCOMETER (10/22/2008 7:26 EDT) Glucose, Fingerstick 124(H) 70 - 100 mg/dl [facility] Breast Buffer ID [id number] Test Performed by Nursing Services [facility] 10/22/2008 7:26 EDT 10/22/2008 23:16 EDT Thad Marroquin MD, MSc CHEMISTRY & BLOOD G ORDERABLES Performing Organization Address [facility] Phone Number [facility] [address] [place] [address] * GLUCOSE, SERUM (10/22/2008 3:29 EDT) Glucose, Serum 95 70 - 100 mg/dl [facility] 10/22/2008 3:29 EDT 10/22/2008 3:29 EDT Christopher Ga MD CHEMISTRY & BLOOD G ORDERABLES Performing Organization Address [facility] de Phone Number [facility] [address] [place] [address] * (ABNORMAL) PTT (10/22/2008 3:29 EDT) PTT 39(H) 20 - 35 secs [facility] Comment:Therapeutic Heparin range: 60-100 seconds 10/22/2008 3:29 EDT 10/22/2008 3:29 EDT Christopher Ga MD HEMATOLOGY & PF4 OR DERABLES Performing Organization Address [facility] de Phone Number [facility] [address] [place] [address] * (ABNORMAL) PROTIME (10/22/2008 3:29 EDT) Pro Time 15.4(H) 12.0 - 15.0 secs [facility] I.N.R. 1.2(H) 0.9 - 1.1 Ratio [facility] Comment: Moderate Intensity Coumadin INR = 2.0-3.0 Adjustments in anticoagulant therapy dose should be based upon the INR and NOT the Pro Time. 10/22/2008 3:29 EDT 10/22/2008 3:29 EDT Christopher Ga MD HEMATOLOGY & PF4 OR DERABLES Performing Organization Address [facility] de Phone Number [facility] [address] [place] [address] * PHOSPHORUS (10/22/2008 3:29 EDT) Phosphorus 3.6 2.5 - 4.5 mg/dl [facility] 10/22/2008 3:29 EDT 10/22/2008 3:29 EDT Christopher Ga MD CHEMISTRY & BLOOD G ORDERABLES Performing Organization Address [facility] de Phone Number [facility] [address] [place] [address] * (ABNORMAL) MAGNESIUM (10/22/2008 3:29 EDT) Magnesium 1.4(L) 1.7 - 2.8 mg/dl [facility] 10/22/2008 3:29 EDT 10/22/2008 3:29 EDT Christopher Ga MD CHEMISTRY & BLOOD G ORDERABLES Performing Organization Address [facility] de Phone Number [facility] [address] [place] [address] * (ABNORMAL) CREATININE (10/22/2008 3:29 EDT) Creatinine 0.60(L) 0.7 - 1.5 mg/dl [facility] GFR, Calculated >60 ml/min/1.7 3m2 [facility] 10/22/2008 3:29 EDT 10/22/2008 3:29 EDT Christopher Ga MD CHEMISTRY & BLOOD G ORDERABLES Performing Organization Address [facility] de Phone Number [facility] [address] [place] [address] * (ABNORMAL) BUN (10/22/2008 3:29 EDT) BUN 6(L) 10 - 26 mg/dl [facility] 10/22/2008 3:29 EDT 10/22/2008 3:29 EDT Christopher Ga MD CHEMISTRY & BLOOD G ORDERABLES Performing Organization Address [facility] Co de Phone Number [facility] [address] [place] [address] * (ABNORMAL) ELECTROLYTES (10/22/2008 3:29 EDT) Sodium 132(L) 136 - 145 mEq/L [facility] Potassium 5.3(H) 3.5 - 5.0 mEq/L [facility] Chloride 105 96 - 110 mEq/L [facility] CO2 21(L) 24 - 32 mEq/L [facility] 10/22/2008 3:29 EDT 10/22/2008 3:29 EDT Christopher Ga MD CHEMISTRY & BLOOD G ORDERABLES Performing Organization Address [facility] de Phone Number [facility] [address] [place] [address] * (ABNORMAL) HEMAGRAM (10/22/2008 3:29 EDT) WBC 3.60(L) 4.0 - 10.4 K/cmm [facility] RBC 4.25(L) 4.36 - 5.78 M/cmm [facility] Hemoglobin 10.8(L) 13.8 - 17.3 gm/dl [facility] HCT 31.8(L) 39.5 - 50.2 % [facility] MCV 75(L) 81 - 95 fl [facility] MCH 25.5(L) 27.6 - 33.0 pg [facility] MCHC 34.1 32.8 - 36.4 gm/dl [facility] PLT 111(L) 141 - 320 K/cmm [facility] RDW-CV 17.1(H) 11.8 - 14.1 % [facility] 10/22/2008 3:29 EDT 10/22/2008 3:29 EDT Christopher Ga MD HEMATOLOGY & PF4 OR DERABLES Performing Organization Address [facility] de Phone Number [facility] [address] [place] [address] * (ABNORMAL) OSMOLALITY, URINE (10/22/2008 0:43 EDT) Osmolality, Ur 64(L) 392 - 1090 MOS/KG [facility] 10/22/2008 0:43 EDT 10/22/2008 0:43 EDT Christopher Ga MD URINALYSIS ORDERABL ES Performing Organization Address [facility] Phone Number [facility] [address] [place] [address] * SODIUM, URINE RANDOM (10/22/2008 0:43 EDT) Sodium, Ur <5.0 mEq/L [facility] 10/22/2008 0:43 EDT 10/22/2008 0:43 EDT Christopher Ga MD URINALYSIS ORDERABL ES Performing Organization Address [facility] Phone Number [facility] [address] [place] [address] * GLUCOSE, GLUCOMETER (10/22/2008 0:19 EDT) Glucose, Fingerstick 87 70 - 100 mg/dl [facility] Breast Buffer ID [id number] Test Performed by Nursing Services [facility] 10/22/2008 0:19 EDT 10/22/2008 23:16 EDT Thad Marroquin MD MSc CHEMISTRY & BLOOD G ORDERABLES Performing Organization Address [facility] Phone Number [facility] [address] [place] [address] * (ABNORMAL) OSMOLALITY (10/22/2008 0:00 EDT) Osmolality Cintia 273(L) 280 - 300 MOS/KG [facility] 10/22/2008 10/22/2008 0:2 2 EDT Christopher Ga MD CHEMISTRY & BLOOD G ORDERABLES Performing Organization Address [facility] Phone Number [facility] [address] [place] [address] * (ABNORMAL) ELECTROLYTES (10/22/2008 0:00 EDT) Sodium 127(L) 136 - 145 mEq/L [facility] Potassium 5.5(H) 3.5 - 5.0 mEq/L [facility] Chloride 101 96 - 110 mEq/L [facility] CO2 21(L) 24 - 32 mEq/L [facility] 10/22/2008 10/22/2008 0:2 2 EDT Christopher Ga MD CHEMISTRY & BLOOD G ORDERABLES Performing Organization Address City/State/[facility] Co de Phone Number [facility] [address] [place] [address] documented in this encounter Visit Diagnoses Not on filedocumented in this encounter Care Teams Yard Assistant Relationship Specialty Start Date End Date Corin Skinner MD [address] [place] [address] [phone] PCP - General 10/24/08 08/21/09 documented as of this encounter
--- OUTSIDE RECORDS SUMMARY | 2024-03-05 15:47 | XMS_ITS | Encounter Summary ---
Author Organization [facility] Address [address] [place] [address] Care Team Providers Care Rail Car Mechanic Name Role Phone Yan Demarco MD Primary Care Provider [phone] Corin Skinner MD Primary Care Provider [phone] Akil Serrano MD Primary Care Provider [phone] Yossi Torres MD Primary Care Provider [phone] Emilee Cody MD Primary Care Provider + Ren Vaz MD Primary Care Provider [phone] Encounter Details Date Type Department Care Team (Late st Contact Info) Description 10/22/2008 Before PRISM Converted Visit (Maple) [facility] - Maple conversion [address] [place] [address] Christopher Ga MD [address] [place] [phone] Social History Tobacco Use Types Packs/Day Years Used Date Smoking Tobacco: Never Assessed Sex and Gender Information Value Date Recorded Sex Assigned at Not on file Gender Identity Not on file Sexual Orientation Not on file documented as of this encounter Plan of Treatment Upcoming Encounters Date Type Department Care Team (Late st Contact Info) Description 09/09/2024 10:20 EST Office Visit [facility] Endocrinology - [address] [address] Day Littlejohn MD PhD 62 [facility] [address] [place] [phone] documented as of this encounter Procedures Procedure Name Priority Date/Time Associated Diagnosis Comments ANKLE 2 VIEWS 10/22/2008 13:36 EDT documented in this encounter Results * ANKLE 2 VIEWS (10/22/2008 13:36 EDT) Anatomical Region Laterality Modality Other 10/22/2008 13:3 6 EDT Narrative 11/01/2008 3:06 EDT RLE with significant, TTP over lateral malleolar, rule out fracture ANKLE 2 VIEWS ??Oct 22, 2008 1:36:00 PM Signs and Symptoms: ??RLE with significant, TTP over lateral malleolar, rule out fracture Findings: 2 views of the left ankle show several growth arrest lines in the tibia. Otherwise no bone or joint abnormalities are identified. I have personally reviewed the images and the above interpretation and agree with the findings. Procedure Note Yossi Valladares / Sukhi Menard MD - 11/01/2008 RLE with significant, TTP over lateral malleolar, rule out fracture ANKLE 2 VIEWS Oct 22, 2008 1:36:00 PM Signs and Symptoms: RLE with significant, TTP over lateral malleolar, rule out fracture Findings: 2 views of the left ankle show several growth arrest lines in the tibia. Otherwise no bone or joint abnormalities are identified. I have personally reviewed the images and the above interpretation and agree with the findings. Christopher Ga MD IMG DIAGNOSTIC IMAG ING ORDERABLES documented in this encounter Visit Diagnoses Not on filedocumented in this encounter Care Teams Rail Car Mechanic Relationship Specialty Start Date End Date Yan Demarco MD [address] [place] [phone] PCP - General 08/22/09 02/20/10 Corin Skinner MD [address] [place] [phone] PCP - General 10/24/08 08/21/09 Akil Serrano MD 74 [facility] [address] [place], [place] [phone] PCP - General 02/21/10 04/16/11 Yossi Torres MD [address] [place] [phone] PCP - General 04/17/11 03/14/16 Emilee Cody MD [address] [place] [phone] PCP - General 03/15/16 09/29/18 Ren Vaz MD [address] [place] [address] [address], [place] [phone] PCP - General 09/30/18 documented as of this encounter
--- OUTSIDE RECORDS SUMMARY | 2024-03-05 15:47 | XMS_ITS | Encounter Summary ---
Author Organization [facility] Address [address] [place] [address] Care Team Providers Care Solar Electric Practitioner Name Role Phone Corni Skinner MD Primary Care Provider [phone] Encounter Details Date Type Department Care Team (Late st Contact Info) Description 10/21/2008 Before PRISM Converted Visit (Maple) [facility] - Maple conversion [address] [place] [address] Christopher Ga MD [address] [place] [phone] Social History Tobacco Use Types Packs/Day Years Used Date Smoking Tobacco: Never Assessed Sex and Gender Information Value Date Recorded Sex Assigned at Not on file Gender Identity Not on file Sexual Orientation Not on file documented as of this encounter Plan of Treatment Upcoming Encounters Date Type Department Care Team (Late st Contact Info) Description 09/09/2024 10:20 EST Office Visit [facility] Endocrinology - [facility] [address] [place], [place] [phone] Day Littlejohn MD PhD 62 [facility] [address] [place] [address] documented as of this encounter Procedures Procedure Name Priority Date/Time Associated Diagnosis Comments GLUCOSE, GLUCOMETER Routine 10/21/2008 2 2:27 EDT documented in this encounter Results * (ABNORMAL) GLUCOSE, GLUCOMETER (10/21/2008 22:27 EDT) Glucose, Fingerstick 103(H) 70 - 100 mg/dl [facility] Agriculture Extension Specialist [place] [id number] Test Performed by Nursing Services [facility] 10/21/2008 22:2 7 EDT 10/21/2008 23:30 EDT Christopher Ga MD CHEMISTRY & BLOOD G ORDERABLES Performing Organization Address City/State/[facility] Co de Phone Number [facility] [address] [place] [address] documented in this encounter Visit Diagnoses Not on filedocumented in this encounter Care Teams Solar Electric Practitioner Relationship Specialty Start Date End Date Corin Skinner MD [address] [place] [phone] PCP - General 10/24/08 08/21/09 documented as of this encounter
--- OUTSIDE RECORDS SUMMARY | 2024-03-05 15:47 | XMS_ITS | Encounter Summary ---
Author Organization [facility] Address [address] [place] [address] Care Team Providers Care Barrelhead Inspector Name Role Phone Corin Skinner MD Primary Care Provider [phone] Encounter Details Date Type Department Care Team (Late st Contact Info) Description 10/21/2008 Before PRISM Converted Visit (Maple) [facility] - Maple conversion [address] [place] [address] Emergency, MD Diya Social History Tobacco Use [...] 09/09/2024 10:20 EST Office Visit [facility] Endocrinology - [address] [phone] Day Littlejohn MD PhD [address] [place] [address] [address] [place] [address] documented as of this encounter Procedures Procedure Name Priority Date/Time Associated Diagnosis Comments TSH Routine 10/21/2008 17:54 EDT documented in this encounter Results * (ABNORMAL) TSH (10/21/2008 17:54 EDT) TSH <0.02(L) 0.35 - 5.00 uIU/ml [facility] 10/21/2008 17:5 4 EDT 10/21/2008 17:54 EDT Default Emergency MD CHEMISTRY & BLOOD G ORDERABLES [facility] [address] [place] [address] documented in this encounter Visit Diagnoses Not on filedocumented in this encounter Care Teams Barrelhead Inspector Relationship Specialty Start Date End Date Corin Skinner MD [address] [place] [phone] PCP - General 10/24/08 08/21/09 documented as of this encounter
--- OUTSIDE RECORDS SUMMARY | 2024-03-05 15:47 | XMS_ITS | Encounter Summary ---
Author Organization [facility] Address [address] [place] [address] Care Team Providers Care Pin Setter Name Role Phone Corin Skinner MD Primary Care Provider [phone] Encounter Details Date Type Department Care Team (Late st Contact Info) Description 10/21/2008 Before PRISM Converted Visit (Maple) [facility] - Maple conversion [address] [place] [address] Emergency, MD Diya Social History Tobacco Use [...] Info) Description 09/09/2024 10:20 EST Office Visit [facility] Endocrinology - [address] [phone] Day Littlejohn MD PhD [address] [place] [address] [address] [place] [phone] documented as of this encounter Procedures Procedure Name Priority Date/Time Associated Diagnosis Comments HEPATIC FUNCTION PANEL (ALB,ALK PHOS,ALT,AST,DBIL,T OT MORGAN,TOT PROT) Routine 10/21/2008 17:54 EDT documented in this encounter Results * (ABNORMAL) LIVER FUNCTION TESTS (10/21/2008 17:54 EDT) Albumin 2.8(L) 3.4 - 4.9 g/dl [facility] Total Protein 5.1(L) 6.5 - 8.3 g/dl [facility] Alkaline Phosphatase 95 38 - 126 U/L [facility] ALT 48 21 - 72 U/L [facility] AST 35 15 - 46 U/L [facility] Unconjugated Bilirubin 0.5 0.1 - 1.1 mg/dl [facility] Conjugated Bilirubin 0.0 0.0 - 0.3 mg/dl [facility] Bilirubin, Total <0.5 0.2 - 1.3 mg/dl [facility] 10/21/2008 17:5 4 EDT 10/21/2008 17:54 EDT Default Emergency MD CHEMISTRY & BLOOD G ORDERABLES Performing Organization Address City/State/[facility] Co de Phone Number [facility] [address] [place] [address] documented in this encounter Visit Diagnoses Not on filedocumented in this encounter Care Teams Pin Setter Relationship Specialty Start Date End Date Corin Skinner MD [address] [place] [phone] PCP - General 10/24/08 08/21/09 documented as of this encounter
--- OUTSIDE RECORDS SUMMARY | 2024-03-05 15:47 | XMS_ITS | Encounter Summary ---
Author Organization [facility] Address [address] [place] [address] Care Team Providers Care Clam Digger Name Role Phone Unavailable Primary Care Provider Unavailabl e Encounter Details Date Type Department Care Team (Late st Contact Info) Description 07/11/2008 10:40 EST Hospital Encounter [facility] [address] [place] [address] [facility] [address] [place] [phone] Lc Cheng MD 111 [facility], [address] [place] [phone] Social History Tobacco Use Types Packs/Day Years [...] Office Visit [facility] Endocrinology - [address] [address] aDy Littlejohn MD PhD [address] [place] [phone] documented as of this encounter Visit Diagnoses Not on filedocumented in this encounter
--- OUTSIDE RECORDS SUMMARY | 2024-03-05 15:47 | XMS_ITS | Encounter Summary ---
Author Organization [facility] Address [address] [place] [address] Care Team Providers Care Campus Security Officer Name Role Phone Corin Skinner MD Primary Care Provider [phone] Encounter Details Date Type Department Care Team (Late st Contact Info) Description 10/21/2008 Before PRISM Converted Visit (Maple) [facility] - Maple conversion [address] [place] [address] Emergency, MD Diya Social History Tobacco Use [...] [facility] Endocrinology - [address] [phone] Day Littlejohn MD PhD [address] [place] [address] [address] [place] [phone] documented as of this encounter Procedures Procedure Name Priority Date/Time Associated Diagnosis Comments PROTIME Routine 10/21/2008 17:54 EDT documented in this encounter Results * (ABNORMAL) PROTIME (10/21/2008 17:54 EDT) Pro Time 15.3(H) 12.0 - 15.0 secs [facility] I.N.R. 1.2(H) 0.9 - 1.1 Ratio [facility] Comment: Moderate Intensity Coumadin INR = 2.0-3.0 Adjustments in anticoagulant therapy dose should be based upon the INR and NOT the Pro Time. 10/21/2008 17:5 4 EDT 10/21/2008 17:54 EDT Default Emergency MD HEMATOLOGY & PF4 OR DERABLES Performing Organization Address City/State/[facility] Co de Phone Number [facility] [address] [place] [address] documented in this encounter Visit Diagnoses Not on filedocumented in this encounter Care Teams Campus Security Officer Relationship Specialty Start Date End Date Corin Skinner MD [address] [place] [phone] PCP - General 10/24/08 08/21/09 documented as of this encounter
--- OUTSIDE RECORDS SUMMARY | 2024-03-05 15:47 | XMS_ITS | Encounter Summary ---
Author Organization [facility] Address [address] [place] [address] Care Team Providers Care Power Plant Technician Name Role Phone Corin Skinner MD Primary Care Provider [phone] Encounter Details Date Type Department Care Team (Late st Contact Info) Description 10/21/2008 Before PRISM Converted Visit (Maple) [facility] - Maple conversion [address] [place] [address] Christopher Ga MD [address] [place] [phone] Social History Tobacco Use Types Packs/Day [...] Office Visit [facility] Endocrinology - [facility] [address] [place], [place] [phone] Day Littlejohn MD PhD 62 [facility] [address] [place] [phone] documented as of this encounter Procedures Procedure Name Priority Date/Time Associated Diagnosis Comments COMPLETE BLOOD COUNT Routine 10/21/2008 22:35 EDT documented in this encounter Results * (ABNORMAL) HEMAGRAM (10/21/2008 22:35 EDT) WBC 2.97(L) 4.0 - 10.4 K/cmm [facility] RBC 4.09(L) 4.36 - 5.78 M/cmm [facility] Hemoglobin 10.3(L) 13.8 - 17.3 gm/dl [facility] HCT 30.4(L) 39.5 - 50.2 % [facility] MCV 74(L) 81 - 95 fl [facility] MCH 25.3(L) 27.6 - 33.0 pg [facility] MCHC 34.0 32.8 - 36.4 gm/dl [facility] PLT 93(L) 141 - 320 K/cmm [facility] RDW-CV 16.7(H) 11.8 - 14.1 % [facility] 10/21/2008 22:3 5 EDT 10/21/2008 22:35 EDT Christopher Ga MD HEMATOLOGY & PF4 OR DERABLES Performing Organization Address City/State/[facility] Co de Phone Number [facility] [address] [place] [address] documented in this encounter Visit Diagnoses Not on filedocumented in this encounter Care Teams Power Plant Technician Relationship Specialty Start Date End Date Corin Skinner MD [address] [place] [phone] PCP - General 10/24/08 08/21/09 documented as of this encounter
--- OUTSIDE RECORDS SUMMARY | 2024-03-05 15:47 | XMS_ITS | Encounter Summary ---
Author Organization [facility] Address [address] [place] [address] Care Team Providers Care Advertising Account Executive Name Role Phone Corin Skinner MD Primary Care Provider [phone] Encounter Details Date Type Department Care Team (Late st Contact Info) Description 10/21/2008 Before PRISM Converted Visit (Maple) [facility] - Maple conversion [address] [place] [address] Christopher Ga MD [address] [place] [phone] Social History Tobacco Use Types Packs/Day [...] [facility] [address] [place], [place] [phone] Day Littlejohn MD PhD 62 [facility] [address] [place] [phone] documented as of this encounter Procedures Procedure Name Priority Date/Time Associated Diagnosis Comments PHOSPHORUS Routine 10/21/2008 21:00 EDT documented in this encounter Results * PHOSPHORUS (10/21/2008 21:00 EDT) Phosphorus 3.6 2.5 - 4.5 mg/dl [facility] 10/21/2008 21:0 0 EDT 10/21/2008 21:17 EDT Christopher Ga MD CHEMISTRY & BLOOD G ORDERABLES Performing Organization Address City/State/[facility] Co de Phone Number [facility] [address] [place] [address] documented in this encounter Visit Diagnoses Not on filedocumented in this encounter Care Teams Advertising Account Executive Relationship Specialty Start Date End Date Corin Skinner MD [address] [place] [phone] PCP - General 10/24/08 08/21/09 documented as of this encounter
--- OUTSIDE RECORDS SUMMARY | 2024-03-05 15:47 | XMS_ITS | Encounter Summary ---
Author Organization [facility] Address [address] [place] [address] Care Team Providers Care Tunneling Machine Operator Name Role Phone Corin Skinner MD Primary Care Provider [phone] Encounter Details Date Type Department Care Team (Late st Contact Info) Description 10/21/2008 Before PRISM Converted Visit (Maple) [facility] - Maple conversion [address] [place] [address] Christopher Ga MD [address] [place] [phone] Social History Tobacco Use Types Packs/Day Years Used Date Smoking Tobacco: Never Assessed Sex and Gender Information Value Date Recorded Sex Assigned at Not on file Gender Identity Not on file Sexual Orientation Not on file documented as of this encounter Plan of Treatment Upcoming Encounters Date Type Department Care Team (Late st Contact Info) Description 09/09/2024 10:20 EST Office Visit [facility] Endocrinology - [facility] [address] [place], [place] [phone] Day Littlejohn MD PhD 62 [facility] [address] [place] [phone] documented as of this encounter Procedures Procedure Name Priority Date/Time Associated Diagnosis Comments ELECTROLYTES Routine 10/21/2008 21:00 EDT documented in this encounter Results * (ABNORMAL) ELECTROLYTES (10/21/2008 21:00 EDT) Sodium 123(LL) 136 - 145 mEq/L [facility] Comment:Sample retested, res ult confirmed Potassium 4.9 3.5 - 5.0 mEq/L [facility] Chloride 97 96 - 110 mEq/L [facility] CO2 21(L) 24 - 32 mEq/L [facility] 10/21/2008 21:0 0 EDT 10/21/2008 21:17 EDT Christopher Ga MD CHEMISTRY & BLOOD G ORDERABLES Performing Organization Address City/State/[facility] Co de Phone Number [facility] [address] [place] [address] documented in this encounter Visit Diagnoses Not on filedocumented in this encounter Care Teams Tunneling Machine Operator Relationship Specialty Start Date End Date Corin Skinner MD [address] [place] [phone] PCP - General 10/24/08 08/21/09 documented as of this encounter
--- OUTSIDE RECORDS SUMMARY | 2024-03-05 15:47 | XMS_ITS | Encounter Summary ---
Author Organization [facility] Address [address] [place] [address] Care Team Providers Care School Bus Technician Name Role Phone Unavailable Primary Care Provider Unavailabl e Encounter Details Date Type Department Care Team (Late st Contact Info) Description 08/13/2008 14:44 EST - 08/14/2008 11:59 EST Hospital Encounter [facility] Pediatric Unit [address] [place] [address] Summer Parr MD [address] [facility], [address] [phone] Slava Pineda MD Discharge Disposition: Home or Self Care Social History Tobacco Use Types Packs/Day Years Used Date Smoking Tobacco: Never Assessed Sex and Gender Information Value Date Recorded Sex Assigned at Not on file Gender Identity Not on file Sexual Orientation Not on file documented as of this encounter Discharge Summaries * Johan Parikh MD - 12/14/2008 0820 EDT HISS DISCHARGE SUMMARY ADDRESS: [address] [place] [id number] PHONE: [phone] ATTENDING PHYSICIAN: SUMMER PARR MD ADDRESS: [place] [address] [address] [place] [address] PHONE: [phone] REFERRING PHYSICIAN: ANCELMO MICHAEL MD [facility] [address] [place] [address] PHONE: [phone] ADMISSION DATE: 08/13/08 SERVICE: PED. MEDICINE TRANSFER TO IP: DISCHARGE DATE: 08/14/08 SERVICE: PED. 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 Take only the amount prescribed. Take only as often as prescribed. Check with your doctor before taking any other medications. WARNING: Medications you were taking prior to this admission may have had the dose changed. Review doses carefully. 1) CHOLECALCIFEROL / (vitamin d) 800UNITS TABLET, ONCE A DAY, BY MOUTH 2) HYDROCORTISONE / (cortef) 10MG TABLET, ONCE A DAY, BY MOUTH 3) LEVOTHYROXINE SODIUM / (levothroid) 200MCG TABLET, ONCE A DAY, BY MOUTH 4) MODAFINIL / (provigil) 200MG TABLET, ONCE A DAY, BY MOUTH 5) QUETIAPINE / (seroquel) 400MG TABLET, EVERY AFTERNOON, BY MOUTH 6) ZONISAMIDE 75MG , ONCE A DAY, BY MOUTH 7) DESMOPRESSIN ACETATE / (desmopressin injection) 0.4MCG INJECTION, EVERY 12 HOURS, SUBCUTANEOUSLY 8) HYDROCORTISONE / (cortef) 5MG TABLET, TWICE A DAY, BY MOUTH 9) POTASSIUM CHLORIDE / (kcl ext-rel tab (chcf)) 30MEQ EXTENDED RELEASE TABLET, 3 TIMES A DAY, BY MOUTH MEDICATIONS YOU WERE TAKING PRIOR TO ADMISSION THAT SHOULD BE STOPPED: NONE HERBAL REMEDIES, NUTRITIONAL SUPPLEMENTS, AND REEF-OIH-[id number] MEDICATIONS that have not been prescribed by a physician may have significant adverse side effect or may interfere with the medications that have been prescribed for you. If you are taking herbal remedies, nutritional supplements, or djdi-ova-ehpahvl medications you are strongly encouraged to discontinue their use until you have discussed your use of these products with your primary care physician. UPON ADMISSION YOU LISTED THE FOLLOWING HERBAL/SUPPLEMENTS/OTC: NONE ADDITIONAL MEDICATION INSTRUCTIONS: Increase fluid intake to 70 ounces per day and continue home medications as befo re. 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 On presentation to the ER Miguel Angel's parents were concerned that he was going to seize due to the fact that he had been more lethargic this morning and had started to twitch. Miguel Angel's parents have noted that when he has had this twitching before in the past he has eventually had a tonic clonic seizure shortly after the twitching has begun. A set of electrolytes were obtained in the ED and Miguel Angel was found to be hypernatremic to 153. AN IV was placed and Miguel Angel was given a 500cc NS bolus. He was then admitted to to assure resolution of his hypernatremia. Miguel Angel was placed on his normal medication regimen and fluid restriction of 1500 cc/day. His hydrocortisone dosing was tripled to stress dose levels during his hospitalization. On day of discharge a set of electrolytes was obtained showing the serum Na to be 150. He was discharged home in stable condition with his parents with plans to continue his normal home medication regimen. His parents were instructed to increase PO fluid intake to 70 ounces per day and to get sodium levels rechecked in 72 hours. DIET: Regular diet Fluid Restriction of 1500cc/day ACTIVITY: No restrictions on activity SHOWERING AND BATHING: No restrictions SPECIAL INSTRUCTIONS: Increase fluid intake to 70 ounces per day. Get electrolytes checked 08/17/08 and follow up with Dr. Michael regarding lab results. END OF REPORT D: JOHAN PARIKH MD P - ZOHDocument ID: [id number] documented in this encounter Discharge Disposition Disposition Code Departure Means Destination Home or Self Care documented in this encounter Plan of Treatment Upcoming Encounters Date Type Department Care Team (Late st Contact Info) Description 09/09/2024 10:20 EST Office Visit [facility] Endocrinology - [place] [phone] Day Littlejohn MD PhD [address] [phone] documented as of this encounter Procedures Procedure Name Priority Date/Time Associated Diagnosis Comments BUN Routine 08/14/2008 6:00 EST CREATININE Routine 08/14/2008 6:00 EST ELECTROLYTES Routine 08/14/2008 6:00 EST documented in this encounter Results * CREATININE (08/14/2008 6:00 EST) Creatinine 0.90 0.7 - 1.5 mg/dl [facility] Comment:Heparinized plasma. GFR, Calculated >60 ml/min/1.7 3m2 [facility] Comment:Heparinized plasma. 08/14/2008 6:00 EST 08/14/2008 9:43 EST Summer Parr MD CHEMISTRY & BLOOD GA S ORDERABLES Performing Organization Address [facility] de Phone Number [facility] [address] [place] [address] * BUN (08/14/2008 6:00 EST) BUN 14 10 - 26 mg/dl [facility] Comment:Heparinized plasma. 08/14/2008 6:00 EST 08/14/2008 9:43 EST Summer Parr MD CHEMISTRY & BLOOD GA S ORDERABLES Performing Organization Address [facility] Co de Phone Number [facility] [address] [place] [address] * (ABNORMAL) ELECTROLYTES (08/14/2008 6:00 EST) Sodium 150(H) 136 - 145 mEq/L [facility] Comment:Heparinized plasma. Potassium 5.2(H) 3.5 - 5.0 mEq/L [facility] Comment:Heparinized plasma. Chloride 117(H) 96 - 110 mEq/L [facility] Comment:Heparinized plasma. CO2 19(L) 24 - 32 mEq/L [facility] Comment:Heparinized plasma. 08/14/2008 6:00 EST 08/14/2008 9:43 EST Summer Parr MD CHEMISTRY & BLOOD GA S ORDERABLES [facility] [address] [place] [address] documented in this encounter Visit Diagnoses Not on filedocumented in this encounter
--- OUTSIDE RECORDS SUMMARY | 2024-03-05 15:47 | XMS_ITS | Encounter Summary ---
Author Organization [facility] Address [address] [place] [address] Care Team Providers Care Surgery Tech Name Role Phone Corin Skinner MD Primary Care Provider +1 [phone] Encounter Details Date Type Department Care Team (Late st Contact Info) Description 10/21/2008 Before PRISM Converted Visit (Maple) [facility] - Maple conversion [address] [place] [address] Christopher Ga MD [address] [place] [phone] Social History Tobacco Use Types Packs/Day [...] 10:20 EST Office Visit [facility] Endocrinology - [facility] [address] [place], [place] [phone] Day Littlejohn MD PhD 62 [facility] [address] [place] [address] documented as of this encounter Procedures Procedure Name Priority Date/Time Associated Diagnosis Comments OSMOLALITY, URINE Routine 10/21/2008 21: 00 EDT documented in this encounter Results * (ABNORMAL) OSMOLALITY, URINE (10/21/2008 21:00 EDT) Osmolality, Ur 106(L) 392 - 1090 MOS/KG [facility] 10/21/2008 21:0 0 EDT 10/21/2008 21:16 EDT Christopher Ga MD URINALYSIS ORDERABL ES Performing Organization Address City/State/[facility] Co de Phone Number [facility] [address] [place] [address] documented in this encounter Visit Diagnoses Not on filedocumented in this encounter Care Teams Surgery Tech Relationship Specialty Start Date End Date Corin Skinner MD [address] [place] [phone] PCP - General 10/24/08 08/21/09 documented as of this encounter
--- OUTSIDE RECORDS SUMMARY | 2024-03-05 15:47 | XMS_ITS | Encounter Summary ---
Author Organization [facility] Address [address] [place] [address] Care Team Providers Care Cattle Examiner Name Role Phone Corin Skinner MD Primary Care Provider [phone]- [phone] Encounter Details Date Type Department Care Team (Late st Contact Info) Description 10/21/2008 Before PRISM Converted Visit (Maple) [facility] - Maple conversion [address] [place] [address] Christopher Ga MD [address] [place] [phone] Social History Tobacco Use Types Packs/Day Years Used Date Smoking Tobacco: Never Assessed Sex and Gender Information Value Date Recorded Sex Assigned at Not on file Gender Identity Not on file Sexual Orientation Not on file documented as of this encounter Plan of Treatment Upcoming Encounters Date Type Department Care Team (Late st Contact Info) Description 09/09/2024 10:20 EST Office Visit [facility] Endocrinology - [facility] [address] [place], [place] [phone] Day Littlejohn MD PhD 62 [facility] [address] [place] [phone] documented as of this encounter Procedures Procedure Name Priority Date/Time Associated Diagnosis Comments DRUG SCREEN 6 Routine 10/21/2008 17:10 EDT documented in this encounter Results * DRUG SCREEN 6 (10/21/2008 17:10 EDT) Amphetamine Screen, Urine Negative Screen Suitable for medical purposes only. Will not detect all drugs within class. Cutoff = 1000 ng/ml [facility] Barbiturate Screen, Urine Negative Screen Suitable for medical purposes only. Will not detect all drugs within class. Cutoff = 300 ng/ml [facility] Benzodiazepine Screen, Urine Negative Screen Suitable for medical purposes only. Will not detect all drugs within class. Cutoff = 300 ng/ml [facility] Cannabinoid Scrn, Ur Negative Screen Suitable for medical purposes only. Will not detect all drugs within class. Cutoff = 50 ng/ml [facility] Cocaine Metabolites, Ur Negative Screen Suitable for medical purposes only. Will not detect all drugs within class. Cutoff = 300 ng/ml [facility] Opiate Scrn, Ur Negative Screen Suitable for medical purposes only. Will not detect all drugs within class. Cutoff = 300 ng/ml Does not detect oxycodone, oxycontin or methadone. [facility] 10/21/2008 17:1 0 EDT 10/21/2008 18:05 EDT Christopher Ga MD URINALYSIS ORDERABL ES Performing Organization Address City/State/[facility] Co de Phone Number [facility] [address] [place] [address] documented in this encounter Visit Diagnoses Not on filedocumented in this encounter Care Teams Cattle Examiner Relationship Specialty Start Date End Date Corin Skinner MD [address] [place] [phone] PCP - General 10/24/08 08/21/09 documented as of this encounter
--- OUTSIDE RECORDS SUMMARY | 2024-03-05 15:47 | XMS_ITS | Encounter Summary ---
Author Organization [facility] Address [address] [place] [address] Care Team Providers Care Web Press Jogger Name Role Phone Corin Skinner MD Primary Care Provider [phone] [phone] Encounter Details Date Type Department Care Team (Late st Contact Info) Description 10/21/2008 Before PRISM Converted Visit (Maple) [facility] - Maple conversion [address] [place] [address] Emergency, MD Diya Social History Tobacco Use [...] 10:20 EST Office Visit [facility] Endocrinology - [address] [phone] Day Littlejohn MD PhD [address] [place] [address] [address] [place] [phone] documented as of this encounter Procedures Procedure Name Priority Date/Time Associated Diagnosis Comments LACTIC ACID Routine 10/21/2008 17:54 EDT documented in this encounter Results * LACTIC ACID (10/21/2008 17:54 EDT) Lactic Acid 1.5 0.7 - 2.1 mmol/L [facility] 10/21/2008 17:5 4 EDT 10/21/2008 17:54 EDT Default Emergency MD CHEMISTRY & BLOOD G ORDERABLES Performing Organization Address City/State/[facility] Co de Phone Number [facility] [address] [place] [address] documented in this encounter Visit Diagnoses Not on filedocumented in this encounter Care Teams Web Press Jogger Relationship Specialty Start Date End Date Corin Skinner MD [address] [place] [phone] PCP - General 10/24/08 08/21/09 documented as of this encounter
--- OUTSIDE RECORDS SUMMARY | 2024-03-05 15:47 | XMS_ITS | Encounter Summary ---
Author Organization [facility] Address [address] [place] [address] Care Team Providers Care Crop Pest Control Specialist Name Role Phone Corin Skinner MD Primary Care Provider [phone] Encounter Details Date Type Department Care Team (Late st Contact Info) Description 10/21/2008 Before PRISM Converted Visit (Maple) [facility] - Maple conversion [address] [place] [address] Emergency, MD Diya Social History Tobacco Use [...] Description 09/09/2024 10:20 EST Office Visit [facility] Endocrinology - [address] [phone] Day Littlejohn MD PhD [address] [place] [address] [address] [place] [phone] documented as of this encounter Procedures Procedure Name Priority Date/Time Associated Diagnosis Comments TESTS ADDED BY PHONE Routine 10/21/2008 17:54 EDT documented in this encounter Results * TESTS ADDED BY PHONE (10/21/2008 17:54 EDT) Tests to be added OSM STAT [facility] Who Called DR [facility] Location Code ED TRUE [facility] Read Back/Confirmed ? YES [facility] 10/21/2008 17:5 4 EDT 10/21/2008 17:54 EDT Default Emergency MD CHEMISTRY & BLOOD G ORDERABLES Performing Organization Address City/State/[facility] Co de Phone Number [facility] [address] [place] [address] documented in this encounter Visit Diagnoses Not on filedocumented in this encounter Care Teams Crop Pest Control Specialist Relationship Specialty Start Date End Date Corin Skinner MD [address] [place] [phone] PCP - General 10/24/08 08/21/09 documented as of this encounter
--- OUTSIDE RECORDS SUMMARY | 2024-03-05 15:47 | XMS_ITS | Encounter Summary ---
Author Organization [facility] Address [address] [place] [address] Care Team Providers Care Stacker And Sorter Operator Name Role Phone Corin Skinner MD Primary Care Provider Encounter Details Date Type Department Care Team (Late st Contact Info) Description 10/21/2008 Before PRISM Converted Visit (Maple) [facility] - Maple conversion [address] [place] [address] Christopher Ga MD [address] [place] [phone] Social History Tobacco Use Types Packs/Day Years Used Date Smoking Tobacco: Never Assessed Sex and Gender Information Value Date Recorded Sex Assigned at Not on file Gender Identity Not on file Sexual Orientation Not on file documented as of this encounter Plan of Treatment Upcoming Encounters Date Type Department Care Team (Late st Contact Info) Description 09/09/2024 10:20 EST Office Visit [facility] Endocrinology - [facility] [address] [place], [place] [phone] Day Littlejohn MD PhD 62 [facility] [address] [place] [phone] documented as of this encounter Procedures Procedure Name Priority Date/Time Associated Diagnosis Comments GLUCOSE, GLUCOMETER Routine 10/21/2008 1 9:22 EDT documented in this encounter Results * GLUCOSE, GLUCOMETER (10/21/2008 19:22 EDT) Glucose, Fingerstick 89 70 - 100 mg/dl [facility] Data Processing Consultant ID [id number] Test Performed by Nursing Services [facility] 10/21/2008 19:2 2 EDT 10/21/2008 23:29 EDT Christopher Ga MD CHEMISTRY & BLOOD G ORDERABLES Performing Organization Address City/State/[facility] Co de Phone Number [facility] [address] [place] [address] documented in this encounter Visit Diagnoses Not on filedocumented in this encounter Care Teams Stacker And Sorter Operator Relationship Specialty Start Date End Date Corin Skinner MD [address] [place] [phone] PCP - General 10/24/08 08/21/09 documented as of this encounter
--- OUTSIDE RECORDS SUMMARY | 2024-03-05 15:47 | XMS_ITS | Encounter Summary ---
Author Organization [facility] Address [address] [place] [address] Care Team Providers Care Air Dispatcher Name Role Phone Corin Skinner MD Primary Care Provider [phone] [phone] Encounter Details Date Type Department Care Team (Late st Contact Info) Description 10/21/2008 Before PRISM Converted Visit (Maple) [facility] - Maple conversion [address] [place] [address] Christopher Ga MD [address] [place] [phone] Social History Tobacco Use Types Packs/Day Years Used Date Smoking Tobacco: Never Assessed Sex and Gender Information Value Date Recorded Sex Assigned at Not on file Gender Identity Not on file Sexual Orientation Not on file documented as of this encounter Plan of Treatment Upcoming Encounters Date Type Department Care Team (Late st Contact Info) Description 09/09/2024 10:20 EST Office Visit [facility] Endocrinology - [facility] [address] [place], [place] [phone] Day Littlejohn MD PhD 62 [facility] [address] [place] [phone] documented as of this encounter Procedures Procedure Name Priority Date/Time Associated Diagnosis Comments FIBRINOGEN Routine 10/21/2008 21:00 EDT documented in this encounter Results * (ABNORMAL) FIBRINOGEN (10/21/2008 21:00 EDT) Fibrinogen 425(H) 220 - 410 mg/dl [facility] 10/21/2008 21:0 0 EDT 10/21/2008 21:17 EDT Christopher Ga MD HEMATOLOGY & PF4 OR DERABLES Performing Organization Address City/State/[facility] Co de Phone Number [facility] [address] [place] [address] documented in this encounter Visit Diagnoses Not on filedocumented in this encounter Care Teams Air Dispatcher Relationship Specialty Start Date End Date Corin Skinner MD [address] [place] [phone] PCP - General 10/24/08 08/21/09 documented as of this encounter
--- OUTSIDE RECORDS SUMMARY | 2024-03-05 15:47 | XMS_ITS | Encounter Summary ---
Author Organization [facility] Address [address] [place] [address] Care Team Providers Care Fire Prevention Engineer Name Role Phone Corin Skinner MD Primary Care Provider [phone] Encounter Details Date Type Department Care Team (Late st Contact Info) Description 10/21/2008 Before PRISM Converted Visit (Maple) [facility] - Maple conversion [address] [place] [address] Christopher Ga MD [address] [place] [phone] Social History Tobacco Use Types Packs/Day [...] Visit [facility] Endocrinology - [facility] [address] [place], [place] [phone] Day Littlejohn MD PhD 62 [facility] [address] [place] [phone] documented as of this encounter Procedures Procedure Name Priority Date/Time Associated Diagnosis Comments SODIUM, URINE RANDOM Routine 10/21/2008 21:00 EDT documented in this encounter Results * SODIUM, URINE RANDOM (10/21/2008 21:00 EDT) Sodium, Ur <5.0 mEq/L [facility] 10/21/2008 21:0 0 EDT 10/21/2008 21:16 EDT Christopher Ga MD URINALYSIS ORDERABL ES Performing Organization Address City/State/[facility] Co de Phone Number [facility] [address] [place] [address] documented in this encounter Visit Diagnoses Not on filedocumented in this encounter Care Teams Fire Prevention Engineer Relationship Specialty Start Date End Date Corin Skinner MD [address] [place] [phone] PCP - General 10/24/08 08/21/09 documented as of this encounter
--- OUTSIDE RECORDS SUMMARY | 2024-03-05 15:47 | XMS_ITS | Encounter Summary ---
Author Organization [facility] Address [address] [place] [address] Care Team Providers Care Director Television News Name Role Phone Corin Skinner MD Primary Care Provider [phone] Encounter Details Date Type Department Care Team (Late st Contact Info) Description 07/11/2008 Before PRISM Converted Visit (Maple) [facility] - Maple conversion [address] [place] [address] Lc Cheng MD [address] [facility], [address] [place] [address] Social History Tobacco Use Types Packs/Day Years Used Date Smoking Tobacco: Never Assessed Sex and Gender Information Value Date Recorded Sex Assigned at Not on file Gender Identity Not on file Sexual Orientation Not on file documented as of this encounter Progress Notes * Lc Cheng MD - 01/28/2009 0613 EDT NEUROLOGY HEALTH CARE SERVICE PROGRESS/FOLLOWUP NOTE - 07/11/2008 Skyler Edwards MD [facility] [address] [place] [address] [address] Edwards; The father of 18-year-old Miguel Angel brought him in for follow-up neurological evaluation because of 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 He also has significant sleep disturbance which was the principle focus ofour visit today as he has not had recurrent seizures. I saw him just a week ago in the course of hospitalization for a recurrent (third) episode of hypothermia and encephalopathy from which he appears to have recovered spontaneously. Current Medications 1. Seroquel 400 mg (his peak dose was 600). 2. Provigil. His father believes he does take 200 mg in the morning. 3. Temazepam 15 mg, and I believe this is his peak dose. He takes this at night for sleep. 4. Zonegran 50 mg, having recently been increased from 25 mg daily. 5. Levothyroxine 200 mcg. 6. Ranitidine 150 mg. 7. Hydrocortisone 10/5/5 mg t.i.d. 8. Melatonin 9 mg at night. He is restless and tosses and turns after around 9:00 o' clock. His interval health history has otherwise been fine with no recurrence of any evidence of infection. He was treated, briefly, empirically with vancomycin and a cephalosporin because of his presentation with hypothermia. I note that he did have a cerebellar injury in association with his presentation with septic shock in mid-May documented on an MRI at that time. Review of systems is essentially otherwise negative or noncontributory. Recent electrolytes have been satisfactory. I should note he does also take DDAVP, coordinated by Dr Edwards. Examination is unchanged from previous. He appears alert. Hasno meaningful visual fixation or lightresponses. He does have sharp discs. He does have left- sided weakness, somewhat involving hypo expressive facial range of movement and increased tone in the left arm, but he is now able to raise his left arm overhead. There was a slight increase in tone there and loss of coordination there. His utterances are hard to follow in terms of articulation, but he has meaningful change in affect in response, though blunted and simplified in terms of conversation skills. He sits with a somewhat torted and leaned over posture, has a positional scoliosis. Brisk reflexes throughout, especially on the left side. Benign abdomen. Normal heart sounds. No adenopathy or mucosal lesions. In terms of targeting his sleep problems, the options pharmacologically would include intensifying the temazepam, or the Seroquel. There is some possibility that the Provigil is interfering with his nighttime sleep. His father also does report some daytime sleepiness. But there is not a history otherwise to support obstructive sleep apnea, though consideration could be given to a sleep study to screen for that. For now, I elected to obtain a temazepam level and suggested intensifying and provided a prescription of 5 mg temazepam for that purpose, to 20 mg nightly and requested phone followup in two weeks. There is the option of intensifying his Seroquel, but this may interfere with his mobility. He is continuing to work with physical therapist and walks with and bears weight with assistance. We discussed options to increase his daily exercise. He does use a stationary bicycle, but more at the physical therapy sessions and not at home, though there is a device available at home for this. We spent over half of a 25-minute visit in coordination of care, including review of testing, symptom management, and plans/contingencies for followup as outlined above. I appreciate the chance to see Miguel Angel and hope the above is helpful. Sincerely, Signed by Lc Cheng MD 07/13/2008 17:36 Lc Cheng MD - Lc Cheng MD - ERICA Job ID: [id number] Doc ID: [id number] cc: MD Skyler Singh MD documented in this encounter Plan of Treatment Upcoming Encounters Date Type Department Care Team (Late st Contact Info) Description 09/09/2024 10:20 EST Office Visit [facility] Endocrinology - [address] [address] Day Littlejohn MD PhD [address] [place] [address] [address] [place] [address] documented as of this encounter Visit Diagnoses Not on filedocumented in this encounter Care Teams Director Television News Relationship Specialty Start Date End Date Corin Skinner MD [address] [place] [phone] PCP - General 4/20/09 2/15/10 documented as of this encounter
--- OUTSIDE RECORDS SUMMARY | 2024-03-05 15:47 | XMS_ITS | Encounter Summary ---
Author Organization [facility] Address [address] [place] [address] Care Team Providers Care Skidway Man Name Role Phone Corin Skinner MD Primary Care Provider [phone] Encounter Details Date Type Department Care Team (Late st Contact Info) Description 10/21/2008 Before PRISM Converted Visit (Maple) [facility] - Maple conversion [address] [place] [address] Christopher Ga MD [address] [place] [phone] Social History Tobacco Use Types Packs/Day [...] 09/09/2024 10:20 EST Office Visit [facility] Endocrinology - [facility] [address] [place], [place] [phone] Day Littlejohn MD PhD [address] [facility] [address] [place] [address] documented as of this encounter Procedures Procedure Name Priority Date/Time Associated Diagnosis Comments SMEAR REVIEW Routine 10/21/2008 22:35 EDT documented in this encounter Results * SMEAR REVIEW (10/21/2008 22:35 EDT) Platelet Morphology 1+ Large platelets [facility] 10/21/2008 22:3 5 EDT 10/21/2008 22:35 EDT Christopher Ga MD HEMATOLOGY & PF4 OR DERABLES Performing Organization Address City/State/[facility] Co de Phone Number [facility] [address] [place] [address] documented in this encounter Visit Diagnoses Not on filedocumented in this encounter Care Teams Skidway Man Relationship Specialty Start Date End Date Corin Skinner MD [address] [place] [phone] PCP - General 10/24/08 08/21/09 documented as of this encounter
--- OUTSIDE RECORDS SUMMARY | 2024-03-05 15:47 | XMS_ITS | Encounter Summary ---
Author Organization [facility] Address [address] [place] [address] Care Team Providers Care Inspector Weights And Measures Name Role Phone Corin Skinner MD Primary Care Provider [phone] Encounter Details Date Type Department Care Team (Late st Contact Info) Description 10/21/2008 Before PRISM Converted Visit (Maple) [facility] - Maple conversion [address] [place] [address] Emergency, MD Diya Social History Tobacco Use [...] EST Office Visit [facility] Endocrinology - [address] [phone] Day Littlejohn MD PhD [address] [place] [address] [address] [place] [address] documented as of this encounter Procedures Procedure Name Priority Date/Time Associated Diagnosis Comments PTT Routine 10/21/2008 17:54 EDT documented in this encounter Results * (ABNORMAL) PTT (10/21/2008 17:54 EDT) PTT 36(H) 20 - 35 secs [place] [facility] Comment:Therapeutic Heparin range: 60-100 seconds 10/21/2008 17:5 4 EDT 10/21/2008 17:54 EDT Default Emergency MD HEMATOLOGY & PF4 OR DERABLES [facility] [address] [place] [address] documented in this encounter Visit Diagnoses Not on filedocumented in this encounter Care Teams Inspector Weights And Measures Relationship Specialty Start Date End Date Corin Skinner MD [address] [place] [phone] PCP - General 10/24/08 08/21/09 documented as of this encounter
--- OUTSIDE RECORDS SUMMARY | 2024-03-05 15:48 | XMS_ITS | Encounter Summary ---
Author Organization [facility] Address [address] [place] [address] Care Team Providers Care Junior Technical Writer Name Role Phone Unavailable Primary Care Provider Unavailabl e Encounter Details Date Type Department Care Team (Late st Contact Info) Description 06/11/2008 11:00 EST - 06/11/2008 11:59 EST Hospital Encounter [facility] [address] [place] [address] [facility] [address] [place] [phone] Discharge Disposition: Auto Discharge Social History Tobacco [...] Visit [facility] Endocrinology - [facility] [address] [place] [address] Day Littlejohn MD PhD [address] [place] [address] [address] [place] [address] documented as of this encounter Procedures Procedure Name Priority Date/Time Associated Diagnosis Comments CT HEAD WO CONTRAST 07/03/2008 1 6:16 EST PTT Routine 07/03/2008 16:00 EST PROTIME Routine 07/03/2008 16:00 EST BLOOD GAS, G3 ISTAT Routine 07/03/2008 1 5:23 EST LACTIC ACID Routine 07/03/2008 15:05 EST COMPLETE BLOOD COUNT AND DIFFERENTIAL Routine 07/03/2008 15:05 EST BUN Routine 07/03/2008 15:05 EST GLUCOSE, SERUM Routine 07/03/2008 15:05 EST CREATININE Routine 07/03/2008 15:05 EST ELECTROLYTES Routine 07/03/2008 15:05 EST PORTABLE CHEST 1 VIEW 07/03/2008 14:52 EST ELECTROLYTES Routine 06/11/2008 11:11 EST documented in this encounter Results * CT HEAD WO CONTRAST (07/03/2008 16:16 EST) Anatomical Region Laterality Modality Other 07/03/2008 16:1 6 EST Narrative 11/21/2008 10:49 EDT 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 2. 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 3. Large sella turcica. 4. Dilatation of the third and lateral ventricles. 5. Chronic sphenoid sinusitis. 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 Comparison: 02/11/2008 Findings: There is no intracranial bleed. Macrocystic encephalomalacia is present in both frontal lobes, more on the right and in the right and left thalami. The third and lateral ventricles are dilated due to tissue loss. 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 Bone window views show right-sided craniotomy changes. Sella turcica is enlarged. Mucosal thickening is present in the sphenoid sinus. The remaining of the paranasal sinuses is clear. There are no fluid levels. ??A operative changes are also identified in the right nasal cavity and anterior wall of the sphenoid sinus. Findings show no significant changes compared to the previous study. 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 2. 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 3. Large sella turcica. 4. Dilatation of the third and lateral ventricles. 5. Chronic sphenoid sinusitis. 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 Comparison: 02/11/2008 Findings: There is no intracranial bleed. Macrocystic encephalomalacia is present in both frontal lobes, more on the right and in the right and left thalami. The third and lateral ventricles are dilated due to tissue loss. 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 Bone window views show right-sided craniotomy changes. Sella turcica is enlarged. Mucosal thickening is present in the sphenoid sinus. The remaining of the paranasal sinuses is clear. There are no fluid levels. A operative changes are also identified in the right nasal cavity and anterior wall of the sphenoid sinus. Findings show no significant changes compared to the previous study. Yan Clarke MD IMG CT ORDERABLES * PTT (07/03/2008 16:00 EST) PTT 34 20 - 35 secs [facility] Comment:Therapeutic Heparin range: 60-100 seconds 07/03/2008 16:0 0 EST 07/03/2008 16:07 EST Default Emergency MD HEMATOLOGY & PF4 OR DERABLES Performing Organization Address [facility] de Phone Number [facility] [address] [place] [address] * (ABNORMAL) PROTIME (07/03/2008 16:00 EST) Pro Time 15.3(H) 12.0 - 15.0 secs [facility] I.N.R. 1.2(H) 0.9 - 1.1 Ratio [facility] Comment: Moderate Intensity Coumadin INR = 2.0-3.0 Adjustments in anticoagulant therapy dose should be based upon the INR and NOT the Pro Time. 07/03/2008 16:0 0 EST 07/03/2008 16:07 EST Default Emergency HEMATOLOGY & PF4 OR DERABLES Performing Organization Address [facility] de Phone Number [facility] [address] [place] [address] * (ABNORMAL) BLOOD GAS, G3 ISTAT (07/03/2008 15:23 EST) pH, i-STAT 7.22(L) 7.35 - 7.45 [facility] pCO2, i-STAT 63(H) 35 - 45 mmHg [facility] pO2, i-STAT 33(L) 85 - 100 mmHg [facility] TCO2, i-STAT 27 mEq/L [facility] O2 Saturation 51 % [facility] Base Deficit 4 [facility] Sample Type NOT GIVEN [facility] certified composites technician [place] [id number] Test performed by Chemistry [facility] 07/03/2008 15:2 3 EST 07/03/2008 15:28 EST Provider Unknown CHEMISTRY & BLOOD GA S ORDERABLES Performing Organization Address [facility] Phone Number [facility] [address] [place] [address] * (ABNORMAL) LACTIC ACID (07/03/2008 15:05 EST) Lactic Acid 3.0(H) 0.7 - 2.1 mmol/L [facility] 07/03/2008 15:0 5 EST 07/03/2008 15:19 EST Default Emergency CHEMISTRY & BLOOD G ORDERABLES Performing Organization Address [facility] Phone Number [facility] [address] [place] [address] * (ABNORMAL) GLUCOSE, SERUM (07/03/2008 15:05 EST) Glucose, Serum 69(L) 70 - 100 mg/dl [facility] Comment:Heparinized plasma. 07/03/2008 15:0 5 EST 07/03/2008 15:13 EST Default Emergency CHEMISTRY & BLOOD G ORDERABLES Performing Organization Address [facility] Phone Number [facility] [address] [place] [address] * CREATININE (07/03/2008 15:05 EST) Creatinine 0.80 0.7 - 1.5 mg/dl [facility] Comment:Heparinized plasma. GFR, Calculated >60 ml/min/1.7 3m2 [facility] Comment:Heparinized plasma. 07/03/2008 15:0 5 EST 07/03/2008 15:13 EST Default Emergency MD CHEMISTRY & BLOOD G ORDERABLES Performing Organization Address [facility] de Phone Number [facility] [address] [place] [address] * BUN (07/03/2008 15:05 EST) Pathologist [facility] BUN 14 10 - 26 mg/dl [facility] Comment:Heparinized plasma. 07/03/2008 15:0 5 EST 07/03/2008 15:13 EST Default Emergency MD CHEMISTRY & BLOOD G ORDERABLES Performing Organization Address [facility] de Phone Number [place] [facility] [address] [place] [address] * ELECTROLYTES (07/03/2008 15:05 EST) Pathologist [facility] Sodium 145 136 - 145 mEq/L [facility] Comment:Heparinized plasma. Potassium 4.4 3.5 - 5.0 mEq/L [facility] Comment:Heparinized plasma. Chloride 103 96 - 110 mEq/L [facility] Comment:Heparinized plasma. CO2 24 24 - 32 mEq/L [facility] Comment:Heparinized plasma. 07/03/2008 15:0 5 EST 07/03/2008 15:13 EST Default Emergency MD CHEMISTRY & BLOOD G ORDERABLES Performing Organization Address [facility] de Phone Number [facility] [address] [place] [address] * (ABNORMAL) HEMAGRAM AND DIFFERENTIAL (07/03/2008 15:05 EST) Pathologist [facility] WBC 4.29 4.0 - 10.4 K/cmm [facility] RBC 5.54 4.36 - 5.78 M/cmm [facility] Hemoglobin 15.2 13.8 - 17.3 gm/dl [facility] HCT 45.1 39.5 - 50.2 % [facility] MCV 81 81 - 95 fl [facility] MCH 27.4(L) 27.6 - 33.0 pg [facility] MCHC 33.7 32.8 - 36.4 gm/dl [facility] PLT 145 141 - 320 K/cmm [facility] RDW-CV 19.1(H) 11.8 - 14.1 % [facility] Neutrophils 81.3(H) 45.5 - 79.7 % [facility] Lymphocytes 15.8 15.0 - 46.8 % [facility] Monocytes 1.5(L) 1.8 - 12.0 % [facility] Eosinophils 1.3 0.6 - 6.9 % [facility] Basophils 0.1(L) 0.2 - 1.4 % [facility] ABS Neutrophils 3.49 2.20 - 8.85 K/cmm [facility] ABS Lymphs 0.68(L) 1.09 - 3.30 K/cmm [facility] ABS Monocytes 0.06(L) 0.1 - 0.8 K/cmm [facility] ABS Eosinophils 0.06 0.03 - 0.61 K/cmm [place] ABS Basophils 0.00(L) 0.01 - 0.11 K/cmm [place] [facility] Type of Diff: Automated [facility] 07/03/2008 15:0 5 EST 07/03/2008 15:13 EST Default Emergency MD PACKAGES & DNA PROB E ORDERABLES Performing Organization Address City/State/[facility] Co de Phone Number [facility] [address] [place] [address] * PORTABLE CHEST 1 VIEW (07/03/2008 14:52 EST) Anatomical Region Laterality Modality Other 07/03/2008 14:5 2 EST Narrative 11/21/2008 10:49 EDT Patient has cough, shortness of breath. R/O pneumonia. AP PORTABLE VIEW OF THE CHEST July 03, 2008 at 1435 p.m. Clinical History: Patient has cough, shortness of breath, rule out pneumonia. Comparisons: May 19, 2008. Findings: Single AP portable view of the chest was obtained and shows persistent low lung volumes. The lungs are otherwise clear with no evidence of pneumonia. Pleural fluid is not identified. The pulmonary vascularity and cardiomediastinal silhouette are normal in appearance. The right-sided PICC line and internal jugular central venous catheter have been removed in the interim. A few air filled loops of small bowel and possibly colon are noted in the upper abdomen. Impression: No pneumonia identified. I have personally reviewed the images and the above interpretation and agree with the findings. Procedure Note Leticia Solomon MD / Marlene Mensah, [employer] - 11/21/2008 Patient has cough, shortness of breath. R/O pneumonia. AP PORTABLE VIEW OF THE CHEST July 03, 2008 at 1435 p.m. Clinical History: Patient has cough, shortness of breath, rule out pneumonia. Comparisons: May 19, 2008. Findings: Single AP portable view of the chest was obtained and shows persistent low lung volumes. The lungs are otherwise clear with no evidence of pneumonia. Pleural fluid is not identified. The pulmonary vascularity and cardiomediastinal silhouette are normal in appearance. The right-sided PICC line and internal jugular central venous catheter have been removed in the interim. A few air filled loops of small bowel and possibly colon are noted in the upper abdomen. Impression: No pneumonia identified. I have personally reviewed the images and the above interpretation and agree with the findings. Shola Wolf MD IMG DIAGNOSTIC IMAG ING ORDERABLES * ELECTROLYTES (06/11/2008 11:11 EST) Sodium 140 136 - 145 mEq/L [facility] Potassium 4.1 3.5 - 5.0 mEq/L [facility] Chloride 100 96 - 110 mEq/L [facility] CO2 24 24 - 32 mEq/L [facility] 06/11/2008 11:1 1 EST 06/11/2008 11:13 EST Skyler Edwards [facility] CHEMIS TRY & BLOOD GAS ORDERABLES [facility] [address] [place] [address] documented in this encounter Visit Diagnoses Not on filedocumented in this encounter
--- OUTSIDE RECORDS SUMMARY | 2024-03-05 15:48 | XMS_ITS | Encounter Summary ---
Author Organization [facility] Address [address] [place] [address] Care Team Providers Care Operations Dispatcher Name Role Phone Corin Skinner MD Primary Care Provider [phone] Encounter Details Date Type Department Care Team (Late st Contact Info) Description 07/03/2008 Office Visit [facility] - [facility] [address] [place] [address] Arcadio Gamboa MD [address] [facility], [address] [place] [address] Social History Tobacco Use Types Packs/Day Years Used Date Smoking Tobacco: Never Assessed Sex and Gender Information Value Date Recorded Sex Assigned at Not on file Gender Identity Not on file Sexual Orientation Not on file documented as of this encounter Progress Notes * Arcadio Gamboa MD - 08/18/2009 1438 EST Department - Physician Summary Registration Date/Time: 07/03/2008 13:57 Arrived- By ambulance. Historian- patient, EMS personnel and family and father. History limited by altered mental status. Attending Note: I personally interviewed the patient and examined the patient. HISTORY OF PRESENT ILLNESS Chief Complaint: DECREASED MENTAL STATUS, CHANGED MENTAL STATUS and CONFUSION. This started today and is still present. He is described as having decreased responsiveness. He has had weakness. The patient has had similar symptoms previously. Not recently seen/assessed. Additional history - He has had fever, fatigue and altered mental status. No eye irritation, decreased vision, ear pain or drainage or nasal congestion. No sore throat, chest pain, palpitations, difficulty breathing or cough. No nausea, vomiting, abdominal pain, diarrhea or urinary problems. No neck pain, skin rash, headache, head injury or seizure. No blackouts, numbness, weakness, depression oreasy bruising. REVIEW OF SYSTEMS The patient has had fever, fatigue and altered mental status. No chills, eye irritation, decreased vision or ear pain or drainage. No nasal congestion or discharge, sore throat, chest pain or palpitations. No difficulty breathing, cough, nausea, vomiting or abdominal pain. No constipation, diarrhea, urinary problems, neck pain or skin rash. No headache, head injury, dizziness, fainting episodes or seizure. No numbness, weakness, depression or easy bruising. PAST HISTORY See nurses notes. (s/p craniopharyngioma excision). Medications: The patient's medications have been reviewed. SOCIAL HISTORY Nonsmoker. No alcohol use. PHYSICAL EXAM Appearance: Lethargic. Head: Head atraumatic. ENT: Airway intact. Neck: Normal inspection. CVS: Normal heart rate and rhythm. Heart sounds normal. Pulses normal. Respiratory: No respiratory distress. Breath sounds normal. Abdomen: Abdomen soft and nontender. Back: Normal inspection. Skin: Cyanosis. Extremities: Extremities exhibit normal ROM. Neuro: Altered mental status. LABS, X-RAYS, AND EKG Chest X-ray: No acute disease. No infiltrate. Views: AP (portable). Technique: good. The X-rays were independently viewed by me and interpreted by the radiologist and contemporaneously by me. CT Head: No acute changes. The study was independently viewed by me and interpreted by the radiologist and contemporaneously by me. Laboratory Tests: (lactic acid 3.0). CBC: WBC 4.29. HCT 45.1. Platelets 145. Chemistries: Na- 145. K- 4.4. Cl- 103. HCO3- 24. Glucose - 68. Coagulation Studies: INR 1.2. ABG: pH: 7.34 pCO2: 43 pO2: 87 HCO3: 24 BE: (-) 3 O2 sat: 96 %. Pulse Oximetry: O2 saturation- 93 % room air. PROGRESS AND PROCEDURES E.D. Course: in to evaluate the patient. Cefotaxime 2.5 gm IVPB. Vancomycin 1 gram IVPB. Old medical records reviewed. Disposition: Admitted to Pediatrics. Condition: stable. CLINICAL IMPRESSION Changed mental status. (Electronically signed by Arcadio Gamboa MD 07/03/2008 17:52) AddMIGUEL ANGEL Rodgers JR VisitID: [id number] Date: 07/03/2008 07/03/2008 12:16 DR. MACKAY PT TO ED FOR EVAL. CC: ? PNEUMONIA. COMPLEX MEDICAL HX. REQUESTS PT NOT BE KEPT WAITING, [facility]ON [facility]RIVAL. signed by Jose Armando Palmer - 07/03/2008 12:16) Department - Nursing Summary Registration Date/Time: 07/03/2008 13:57 TRIAGE Initial Assessment Triage time 13:58. Acuity: LEVEL 3. BP: 125 / 67. HR: 131. RR: 22. Temp: 33.5 tympanic. --1403 Jazz Tatum, R.N. O2 saturation: 93% room air. --1410 Jazz Tatum, R.N.. Medications (Melatonin). --1403 Jazz Tatum, R.N. Hydrocortisone Tablets: 10mg (at 7am 5mg at noon and 430pm). Levothyroxine: 200 mcg daily. Multivitamins. Potassium: 20meq. Quetiapine (400mg). Ranitidine: 150 mg. Restoril: 15mg daily. Vitamin D- (cholecalciferol). (Zonogram 50mg daily Desmopressin .4mcg subq). (Modafinil 200mg daily). --1415 Jazz Tatum, R.N.. Allergies GEMFIBROZIL. --1403 Jazz Tatum, R.N.. History This started today. (appeared to have a hard time swallowing). PAST HX: Developmental delay. (tumor bleed ). Arrived by private vehicle and accompanied by family. Historian: family. (,,DR. LATIF REFERS PT TO ED FOR EVAL. CC: ? PNEUMONIA. COMPLEX MEDICAL HX. DR. REQUESTS PT NOT BE KEPT WAITING, [facility]. ). --1403 Jazz Tatum R.N. (pt was recently in with pneumonia and similar problem). --1416 Jazz Tatum R.N. PAST HX: Seizure history. 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 --1423 Jazz Tatum R.N.. NURSING PROGRESS NOTES HYDROCORTISONE 100 mg slow IVP. IV patency established. IV site checked: no pain, redness, or swelling. IV flushed thoroughly pre- and post-medication administration. . --1517 Lucille Carlson R.N. ABG specimen obtained by respiratory therapist from the right radial artery. Single attempt made. Post-procedure pressure applied by respiratory therapist for 3 minutes. Post-procedure: pulse present, no bleeding (7.34 / 43 / 87 / 24 - 3 96%). --1521 Aeron Blondin, BP: 122 / 66. HR: 100. RR: 22. Temp: 34.5 C (tympanic). O2 saturation: 100% room air. --1527 Lucille Carlson R.N. (Paediatric Residents and Venetian Blind Worker at bedside). --1528 Lucille Carlson R.N. 16 fr morse catheter placed using sterile technique and attached to bedside drainage bag, with return of yellow-colored clear urine. The patient tolerated procedure well (inserted by Paediatric Resident Judy Clarke). --1537 Lucille Carlson R.N. (Patient appears more responsive). --1538 Lucille Carlson R.N. Patient transported to [facility] by stretcher with [facility]. --1613 Lucille Carlson R.N. VANCOMYCIN 1 gram IVPB in 25 mL (pre-mix) via IV pump. IV patency established. IV site checked: no pain, redness, or swelling. IV flushed thoroughly pre- and post-medication administration. . --1624 Lucille Carlson R.N. correction to prior entry -Vancomycin not started. --1626 Lucille Carlson R.N. CEFOTAXIME 2.5 gm IVPB in 25 mL (pre-mix) via IV pump. IV patency established. IV site checked: no pain, redness, or swelling. IV flushed thoroughlypre- and post-medication administration. . --1627 Lucille Carlson R.N. BP: 134 / 62. HR: 96. RR: 18. Temp: 35.1 C (tympanic). O2 saturation: 100% room air. --1628 Lucille Carlson R.N. CEFOTAXIME 2.5 gm IVPB infused, completed and discontinued. . --1647 Lucille Carlson R.N. VANCOMYCIN 1 gram in 200mls IVPB (pre-mix) over 1 hour, via IV pump. IV patency established. IV site checked: no pain, redness, or swelling. IV flushed thoroughly pre- and post-medication administration. . --1648 Lucille Carlson R.N.. IV / I&O Flowsheet IV Site #1. IV access: right antecubital space. IV start unsuccessful, with 22g angiocath; two attempts. --1512 Lucille Carlson R.N. (22g IV access in left inner wrist by CONFIDENTIAL SECRETARY). --1512 Lucille Carlson R.N. IV Site #2. IV access: left foot. IV started in ED; (22g IV access by CONFIDENTIAL SECRETARY). --1522 Lucille Carlson R.N. Blood samples drawn. (Lavender, green and yellow tubes sent to Lab). --1523 Lucille Carlson R.N. IV fluids started. IV bag #1; via fluid warmer and pressure infuser. --1526 Lucille Carlson R.N. Blood samples drawn. (Femoral stick by Resident, blood cultures sent to Lab). --1614 Lucille Carlson R.N. IV fluids discontinued. IV bag #1. INTAKE: 1000 mL. --1614 Lucille Carlson R.N. IV fluids started. IV bag #2 of 1000 mL NS infusing with pressure bag and fluid warmer. --1625 Lucille Carlson R.N.. DISPOSITION / DISCHARGE Report was given (Kp). Transported via stretcher by [facility] (NS running STAT, 1gm Vancomycin running via pump). Admitted to pediatrics. --1720 Lucille Carlson R.N. Transported via stretcher by transport team (and hospital sitter). --173 Abigail Woodall R.N.. Clara Cooper R.N., R.N. Locked/Released at 07/03/2008 17:33 by Abigail Woodall R.N. documented in this encounter Plan of Treatment Upcoming Encounters Date Type Department Care Team (Late st Contact Info) Description 09/09/2024 10:20 EST Office Visit [facility] Endocrinology - [address] [address] Day Littlejohn MD PhD [address] [facility] [address] [place] [address] documented as of this encounter Visit Diagnoses Not on filedocumented in this encounter Care Teams Operations Dispatcher Relationship Specialty Start Date End Date Corin Skinner MD [address] [place] [phone] PCP - General 10/24/08 08/21/09 documented as of this encounter
--- OUTSIDE RECORDS SUMMARY | 2024-03-05 15:48 | XMS_ITS | Encounter Summary ---
Author Organization [facility] Address [address] [place] [address] Care Team Providers Care Solution Developer Name Role Phone Unavailable Primary Care Provider Unavailabl e Encounter Details Date Type Department Care Team (Late st Contact Info) Description 07/03/2008 16:20 EST - 07/05/2008 11:59 EST Hospital Encounter [facility] [address] [place] [address] Jodi Parr MD [address] [facility] [place] [phone] Arcadio Gamboa MD [address] [facility], [address] [place] [phone] Discharge Disposition: Home-Health Care Svc Social History Tobacco Use Types Packs/Day Years Used Date Smoking Tobacco: Never Assessed Sex and Gender Information Value Date Recorded Sex Assigned at Not on file Gender Identity Not on file Sexual Orientation Not on file documented as of this encounter Discharge Summaries * Yan Khan MD, MD - 12/13/2008 2321 EDT HISS DISCHARGE SUMMARY ADDRESS: [address] [place] [address] PHONE: [phone] ATTENDING PHYSICIAN: JODI PARR MD ADDRESS: [place] [address] [address] [place] [address] PHONE: [phone] REFERRING PHYSICIAN: DOCTOR MARGARITA MD ADDRESS: PHONE: ADMISSION DATE: 07/03/08 SERVICE: PED. MEDICINE TRANSFER TO IP: DISCHARGE DATE: 07/05/08 SERVICE: PED. 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 Take only the amount prescribed. Take only as often as prescribed. Check with your doctor before taking any other medications. WARNING: Medications you were taking prior to this admission may have had the dose changed. Review doses carefully. 01) CHOLECALCIFEROL / (vitamin d) 800UNITS TABLET, ONCE A DAY, BY MOUTH 02) HYDROCORTISONE / (cortef) 10MG TABLET, ONCE A DAY, BY MOUTH 03) LEVOTHYROXINE SODIUM / (levothroid) 200MCG TABLET, ONCE A DAY, BY MOUTH 04) MODAFINIL / (provigil) 200MG TABLET, ONCE A DAY, BY MOUTH 05) MULTIVITAMIN + MINERALS / (one-a-day plus minerals) ONETABLET TABLET, ONCE A DAY, BY MOUTH 06) QUETIAPINE / (seroquel) 400MG TABLET, EVERY AFTERNOON, BY MOUTH 07) TEMAZEPAM / (restoril) 15MG CAPSULE, EVERY AFTERNOON, BY MOUTH 08) ZONISAMIDE 50MG , ONCE A DAY, BY MOUTH 09) DESMOPRESSIN ACETATE / (desmopressin injection) 0.4MCG INJECTION, EVERY 12 HOURS, SUBCUTANEOUSLY 10) HYDROCORTISONE / (cortef) 5MG TABLET, TWICE A DAY, BY MOUTH 11) RANITIDINE / (zantac) 150MG TABLET, TWICE A DAY, BY MOUTH 12) POTASSIUM CHLORIDE / (kcl ext-rel tab (skilled nursing)) 20MEQ EXTENDED RELEASE TABLET, 3 TIMES A DAY, BY MOUTH MEDICATIONS YOU WERE TAKING PRIOR TO ADMISSION THAT SHOULD BE STOPPED: NONE HERBAL REMEDIES, NUTRITIONAL SUPPLEMENTS, AND [id number] MEDICATIONS that have not been prescribed by a physician may have significant adverse side effect or may interfere with the medications that have been prescribed for you. If you are taking herbal remedies, nutritional supplements, or vuky-mei-megtbuj medications you are strongly encouraged to discontinue their use until you have discussed your use of these products with your primary care physician. 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 He was at his baseline state of health until the morning of admission when he became less responsive. His father noticed that he coughed up his morning water and that his chest sounded like it was rattling. He became barely responsive to simple commands. There was no history of fever or seizure. In the ED he was noted to be hypothermic to 33C with poor perfusion. His initial management consisted on fluid resuscitation with 2L of LR warmed, warming blankets, double-stress dose IV hydrocortisone (100mg), and initiation of IV antibiotics. His perfusion improved and he returned to his baseline within several hours. His hospital course is reviewed by system: FEN - Fluid status was closely monitored. In the ED his serum Na+ was 145. After his initial fluid resuscitation with 2L LR he was NPO until a repeat serum Na+ returned at 143. At that point his home fluid restriction was restarted (50oz/day) plus an aditional 10oz on HD3. He was continued on his home dose of DDAVP throughout. Electrolytes were checked twice daily and weights were obtained on HD2 and 3. Neuro - mental status improved after warming and repleting with LR. Head CT demonstrated no acute bleed. Dr. Cheng was consulted. 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 Miguel Angel was continued on home doses of provigil and zonegran. Seroquil and temazepam were restarted on HD2. After taking these meds Miguel Angel was very sleepy and difficult to arouse with an episode of bradypnea to 10/min overnight. The possibility of decreasing his dose of seroquil and/or temazepam was discussed with Dr. Skinner, who suggested revisiting this issue as an outpatient. ID - upon presentation there was concern that an infection may have been responsible for his mental status change. CXR did not reveal a pneumonia and UA was negative. Antibiotics were started (vanc and ceftaz) and subsequently discontinue on HD3. Bood cultures were negative at discharge (>48 hours). Endocrine - Double-stress dose IV hydrocortisone (100mg) was given in the ED, followed by 50mg Q8h. On HD2 steroids were converted to PO at triple home dose (30, 15, 15), then reduced to double home dose (20, 10, 10) prior to d/c. At home Miguel Angel will take hydrocortisone at regular home doses (10, 5, 5mg). Thyroid hormone and DDAVP were given at regular home doses throughout hospital course. Pulmonary - patient stable on RA throughout Circulatory - initally fair/poor perfusion, which improved after initial fluid resuscitation Dispo - Miguel Angel's parents will call to follow up at Dr. Demarco's office later this week DIET: Regular diet, continue 50 ounces per day of fluids HOME CARE SKILLED SERVICES: Registered Nurse Referral SYMPTOMS TO CALL YOUR DOCTOR ABOUT: Temperature greater than 100.4 degrees Difficulty breathing Breathing fast Change in mental status FOLLOW UP APPOINTMENTS: Call for appointment with Dr. Demarco this week You have a follow up with Dr. Edwards on 07/11 HOME HEALTH CARE REFERRAL SERVICES: Previously followed by: [facility] __ Initial call by: _Voice mail to Agnes on 07/04/08 _ AGENCY: [facility] [phone] fax [phone] cc: Doctor Demarco at [facility] END OF REPORT D: YAN KHAN MD P - ZOHDocument ID: [id number] documented in this encounter Discharge Disposition Disposition Code Departure Means Destination Home-Health Care Svc documented in this encounter Consult Notes * Lc Cheng MD - 07/05/2008 0000 EST INPATIENT CONSULTATION Admission Date: 07/03/2008 Date of consultation: 07/05/2008 In followup today (followup requested by Dr. Parr), Miguel Angel appears again more alert. He is reported as intermittently agitated. He is holding his temperature in the hospital. He has been eating well. Examination shows his baseline dense left hemiplegia. I didnt suggest further testing or intervention. He seems to have made a recovery in terms of his change in mental status corresponding to his normothermia. I wonder about the possibility of an environmental cause of his low temperature though none seems outstanding [facility] We spent over half of a 25-minute visit in coordination of care, including review of testing, symptom management, and plans/contingencies for followup as outlined above. I appreciate the chance to see Miguel Angel and hope the above is helpful. Sincerely, Signed by Lc Cheng MD 07/06/2008 13:44 Lc Cheng MD - Lc Cheng MD P - MH Job ID: [id number] Document ID: [id number] cc: MD Yan Walker MD Christa M Zehle, MD * Lc Cheng MD - 07/04/2008 0000 EST INPATIENT CONSULTATION Admission Date: 07/03/2008 Date of consultation: 07/04/2008 This is an inpatient consultation at the request of Dr. Parr for this 18-year-old known to me withpanhypopituitarism cortical blindness seizures delay/left hemiparesis. He is admitted with a (third) recurrent episode of hypothermia and decreased responsiveness occurring acutely over the morning of July 03, 2008, without signs of intercurrent seizure of infection. He presented to our emergency room on July 03, 2008, with a temperature of 33. His electrolytesand fluid balance essentially proved satisfactory. He had decreased responsiveness in the emergencyroom. He was treated with stress doses of hydrocortisone because of these mental status changes. There is no history of trauma. He has been treated empirically with antibiotics and blood culture was drawn. His admission blood gas, electrolytes, BUN and creatinine were all satisfactory. On examination currently, he is alert and eating with assistance with his left hemiparesis. He has no meaningful visual interaction, his baseline. He becomes increasingly agitated in the course of the interview and exam but his movements and alertness seem to be baseline at initial inspection. Reflexes are brisk and with his hypertonia in the left arm. I did not test his gait but by history and by my examination at his last visit or admission here two to three weeks ago, he was able to walk with assistance. There appears to be a baseline state of autonomic instability predisposing him to hypothermia and likely aberrant hypothalamic axis responses to this stress, which lead to the change in mental status. I doubt this is related to ACCOUNTING CLERKS SUPERVISOR infection or other systemic infection, especially considering his rapid rebound and return to responsiveness through the last 24 hours. For now, I would not suggest imaging or repeat EEG or CSF examination or other change in medications. I note that he continues on a combination of medications for sleep and also for alertness (modafinil 200 mg daily), Zonegran 50 mg daily (ongoing for seizures). He also takes ranitidine, Synthroid, hydrocortisone, vitamin D. From my review of the medication list, he does not seem to be taking Seroquel, which surprises me because his parents had vouched for its efficacy in terms of sleep disturbanc e. In fact,the noted dose of Seroquel and quetiapine is 400 mg daily. We spent over half of a 25-minute visit in coordination of care, including review of testing, symptom management, and plans/contingencies for followup as outlined above. I appreciate the chance to see Miguel Angel and hope the above is helpful. Sincerely, Signed by Lc Cheng MD 07/06/2008 13:44 Lc Cheng MD - Lc Cheng MD P - MH Job ID: [id number] Document ID: [id number] cc: MD Corin Walker MD Christa M Zehle, MD documented in this encounter Plan of Treatment Upcoming Encounters Date Type Department Care Team (Late st Contact Info) Description 09/09/2024 10:20 EST Office Visit [facility] Endocrinology - [place] [address] [place] [address] Day Littlejohn MD PhD [address] [facility] [address] [place] [address] documented as of this encounter Procedures Procedure Name Priority Date/Time Associated Diagnosis Comments ELECTROLYTES Routine 07/04/2008 20:15 EST ELECTROLYTES Routine 07/04/2008 8:15 EST ELECTROLYTES Routine 07/03/2008 20:00 EST URINALYSIS WITH MICROSCOPIC IF POSITIVE Routine 07/03/2008 18:45 EST UA REFLEX Routine 07/03/2008 18:45 EST URINE CULTURE IF POSITIVE Routine 07/03/2008 18:45 EST DRUG SCREEN 6 Routine 07/03/2008 18:45 EST BACTERIAL CULTURE, BLOOD Routine 07/03/2008 16:00 EST BLOOD GAS, EG6 ISTAT Routine 07/03/2008 15:05 EST documented in this encounter Results * ELECTROLYTES (07/04/2008 20:15 EST) Sodium 144 136 - 145 mEq/L [facility] Potassium 4.0 3.5 - 5.0 mEq/L [facility] Chloride 109 96 - 110 mEq/L [facility] CO2 25 24 - 32 mEq/L [facility] 07/04/2008 20:1 5 EST 07/04/2008 20:23 EST Jodi Parr MD CHEMISTRY & BLOOD GA S ORDERABLES [facility] [address] [place] [address] * ELECTROLYTES (07/04/2008 8:15 EST) Sodium 144 136 - 145 mEq/L [facility] Potassium 3.8 3.5 - 5.0 mEq/L [facility] Chloride 107 96 - 110 mEq/L [facility] CO2 24 24 - 32 mEq/L [facility] 07/04/2008 8:15 EST 07/04/2008 8:44 EST Jodi Parr MD CHEMISTRY & BLOOD GA S ORDERABLES Performing Organization Address [facility] de Phone Number [facility] [address] [place] [address] * (ABNORMAL) ELECTROLYTES (07/03/2008 20:00 EST) Sodium 143 136 - 145 mEq/L [facility] Potassium 4.7 3.5 - 5.0 mEq/L [facility] Chloride 104 96 - 110 mEq/L [facility] CO2 22(L) 24 - 32 mEq/L [facility] 07/03/2008 20:0 0 EST 07/03/2008 20:34 EST Jodi Parr MD CHEMISTRY & BLOOD GA S ORDERABLES Performing Organization Address [facility] Co de Phone Number [facility] [address] [place] [address] * CULTURE IF UA POSITIVE (07/03/2008 18:45 EST) Culture if Indicated Culture not indicated by urinalysis results. [facility] 07/03/2008 18:4 5 EST 07/03/2008 19:53 EST Jodi Parr MD MICROBIOLOGY - GENER AL ORDERABLES Performing Organization Address [facility] Co de Phone Number [facility] [address] [place] [address] * DRUG SCREEN 6 (07/03/2008 18:45 EST) Amphetamine Screen, Urine Negative Screen Suitable for medical purposes only. Will not detect all drugs within class. Cutoff = 1000 ng/ml [facility] Barbiturate Screen, Urine Negative Screen Suitable for medical purposes only. Will not detect all drugs within class. Cutoff = 300 ng/ml [facility] Benzodiazepine Screen, Urine Presumptive positive, interpret with caution. Suitable for medical purposes only. Will not detect all drugs within class. Cutoff = 300 ng/ml [facility] Cannabinoid Scrn, Ur Negative Screen Suitable for medical purposes only. Will not detect all drugs within class. Cutoff = 50 ng/ml [facility] Cocaine Metabolites, Ur Negative Screen Suitable for medical purposes only. Will not detect all drugs within class. Cutoff = 300 ng/ml [facility] Opiate Scrn, Ur Negative Screen Suitable for medical purposes only. Will not detect all drugs within class. Cutoff = 300 ng/ml Does not detect oxycodone, oxycontin or methadone. [facility] 07/03/2008 18:4 5 EST 07/03/2008 19:53 EST Jodi Parr MD URINALYSIS ORDERABLE S Performing Organization Address [facility] de Phone Number [facility] [address] [place] [address] * UA REFLEX (07/03/2008 18:45 EST) Pathologist [facility] UA Billing Microscopic not indicated. [facility] 07/03/2008 18:4 5 EST 07/03/2008 19:53 EST Jodi Parr MD URINALYSIS ORDERABLE S Performing Organization Address [facility] Co de Phone Number [facility] [address] [place] [address] * (ABNORMAL) URINALYSIS, CHEMICAL (07/03/2008 18:45 EST) Color, UA Yellow [facility] Clarity, UA Clear [facility] Glucose, UA Norm NORM [facility] Bilirubin, UA Neg NEG [facility] Ketones, UA Neg NEG [facility] Specific [place], Urine <1.005(L) 1.005 - 1.02 [facility] Blood, UA Neg NEG [facility] pH, UA 6.0 5.0 - 9.0 [facility] Protein, UA Neg NEG [facility] Urobilinogen, UA Norm NORM mg/dL [facility] Nitrite, UA Neg NEG [facility] Leuk Esterase Neg NEG [facility] 07/03/2008 18:4 5 EST 07/03/2008 19:53 EST Jodi Parr MD URINALYSIS ORDERABLE S Performing Organization Address [facility] Co de Phone Number [facility] [address] [place] [address] * BACTERIAL CULTURE, BLOOD (07/03/2008 16:00 EST) Specimen Description Blood Right Groin [facility] Result No growth [facility] Report Status Final [id number] [facility] 07/03/2008 16:0 0 EST 07/03/2008 17:30 EST Jodi Parr MD MICROBIOLOGY - GENER AL ORDERABLES Performing Organization Address [facility] de [place] [address] * (ABNORMAL) BLOOD GAS, EG6 ISTAT (07/03/2008 15:05 EST) pH, i-STAT 7.34(L) 7.35 - 7.45 [facility] pCO2, i-STAT 43 35 - 45 mmHg [facility] pO2, i-STAT 87 85 - 100 mmHg [facility] TCO2, i-STAT 24 mEq/L [facility] O2 Saturation 96 % [facility] Sodium, i-STAT 137 136 - 145 mEq/L [facility] Potassium, i-STAT 4.2 3.5 - 5.0 mEq/L [facility] Hematocrit,iSTA T 40 39.5 - 50.2 % [facility] Base Deficit 3 [facility] Temperature 37.0 C [facility] Sample Type ARTERIAL [facility] chemist assistant ID [id number] Test Performed by Respiratory [facility] 07/03/2008 15:0 5 EST 07/04/2008 19:29 EST Jodi Parr MD CHEMISTRY & BLOOD GA S ORDERABLES Performing Organization Address City/State/[facility] Co de Phone Number [facility] [address] [place] [address] documented in this encounter Visit Diagnoses Not on filedocumented in this encounter
--- OUTSIDE RECORDS SUMMARY | 2024-03-05 15:50 | XMS_ITS | Encounter Summary ---
Author Organization [facility] Address [address] [place] [address] Care Team Providers Care Torch Burner Name Role Phone Corin Skinner MD Primary Care Provider [phone] Encounter Details Date Type Department Care Team (Late st Contact Info) Description 04/11/2008 Office Visit [facility] [place] [facility] [address] [place] [address] Nurse, Emergency Room, Social History Tobacco Use Types Packs/Day Years Used Date Smoking Tobacco: Never Assessed Sex and Gender Information Value Date Recorded Sex Assigned at Not on file Gender Identity Not on file Sexual Orientation Not on file documented as of this encounter Progress Notes * Ricki, Conv Customer Operations Associate - 08/16/2009 1849 EST Department - Physician Summary Registration Date/Time: 04/11/2008 6:00 Addenda for MIGUEL ANGEL MASON JR VisitID: [id number] Date: 04/11/2008 04/11/2008 4:46 TRAUMATIC BRAIN INJURY S/P BRAIN TUMOR REMOVAL - SZ TONIGHT. POSTICTAL, INCONTINENT, RECTAL TEMP: 89 F, NOW 92 F. HX: DM, BLOOD CX, WBC 1.8, [id number]. VS: 98 113/64 16. signed by Wilder Driscoll - 04/11/2008 4:46) 04/11/2008 4:48 Dr. Ga accepting signed by Rosy Ramírez R.N. - 04/11/2008 4:48) Department -Nursing Summary Registration Date/Time: 04/11/2008 6:00 TRIAGE Initial Assessment Triage time 06:15 Apr 11 2008. BP: 113/47. HR: 107. RR: 22. Temp: 96 F (tympanic). O2 saturation: 96% room air. --634 Rosy Ramírez R.N.. Medications Hydrocortisone Tablets: 30mg (30mg q am, 15mg q noon, 15mg qpm).daily (0.2mg ). (melatonin 9mg q hs). Provigil: 100 mg daily. Seroquel: 200mg daily. Temazepam: 15mg at bedtime. --634 Rosy Ramírez R.N.. Allergies (lopid). --634 Rosy Ramírez R.N.. History Chief Complaint: (r/o sepsis, s/p witnessed seizure by mom.). This started today. Pain level: unable to quantify. 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 PAST HX: Diabetes mellitus (insipidus). (traumatic brain injury, seizure disorder). SOCIAL HX: Nonsmoker. No alcohol use. The nutritional risk assessment revealed no deficiencies. No report of abuse. Arrived by EMS. Historian: EMS. --634 Rosy Ramírez R.N. (Father states when at [facility] 2 months ago, it was discovered that pt is able to control heart rate and temp. He is able to slow down his HR to nearly a stop and also has lowered his body temp. He has also self-triggered a grand-mal seizure in past.). --711 Rosy Ramírez R.N.. NURSING PROGRESS NOTES SUCCINYLCHOLINE 0227 IVP. . --635 Rosy Ramírez R.N. Two patient identifiers checked. Call light placed in reach. Side rails up x 2. Bed placed in lowest position. Brakes of bed on. --635 Rosy Ramírez R.N. correction to prior entry -No succ given to pt. error in entry.. --07 Rsoy Ramírez R.N. BP: 98 / 47 lying. HR: 122. Temp: 36.9 tympanic. O2 saturation: 98 % room air. --0758 Koffi LomaxTTrena Blood samples drawn from the right forearm peripheral IV site with syringe by tech per protocol andsent to lab. 5 mL blood drawn and discarded. Line flushed post blood draw with 10 mL normal saline.--0911 Koffi LomaxTTrena BP: 136 / 48. HR: 124. O2 saturation: 95% room air. --0914 Lucille Carlson R.N. (Hydrocortisone 10mg PO, DDAVP 0.01mg nasally one puff in each nostril, Provigil 100mg PO, Levothyroxine 0.2mg PO). --0917 Lucille Carlson R.N. BP: 104 / 38. HR: 115. O2 saturation: 95% room air. The patient is sleeping. --1006 Lucille Carlson R.N. (Paediatric Neurologist at bedside evaluating patient). --1021 Lucille Carlson R.N. BP: 105 / 47. HR: 110. O2 saturation: 97% room air. --1110 Lucille Carlson R.N. (Dad at bedside). --1110 Lucille Carlson R.N. Regular diet offered. --1130 Lucille Carlson R.N.. DISPOSITION / DISCHARGE Report was given (to Modesto Boyd 5). Admitted to pediatrics. --1232 Lucille Carlson R.N. Transported via stretcher by transport team. Patient has no belongings. --1341 Lucille Carlson R.N.. Estela Sahni R.N., R.N. Locked/Released at 04/12/2008 11:37 by Anabelle Perez R.N. documented in this encounter Plan of Treatment Upcoming Encounters Date Type Department Care Team (Late st Contact Info) Description 09/09/2024 10:20 EST Office Visit [facility] Endocrinology - [address] [phone] Day Littlejohn MD PhD [address] [facility] [address] [place] [address] documented as of this encounter Visit Diagnoses Not on filedocumented in this encounter Care Teams Torch Burner Relationship Specialty Start Date End Date Corin Skinner MD [address] [place] [phone] PCP - General 10/24/08 08/21/09 documented as of this encounter
--- OUTSIDE RECORDS SUMMARY | 2024-03-05 15:50 | XMS_ITS | Encounter Summary ---
Author Organization [facility] Address [address] [place] [address] Care Team Providers Care Composition Teacher Name Role Phone Unavailable Primary Care Provider Unavailabl e Encounter Details Date Type Department Care Team (Late st Contact Info) Description 02/09/2008 2:41 EDT - 02/12/2008 11:59 EDT Hospital Encounter [facility] Unit [address], [place] [address] Jodi Christie MD [address] [facility] [place] [id number] Yossi Murphy MD [address] [facility], [address] [place] [address] Discharge Disposition: Another Health Care Institution Not Defined Social History Tobacco Use Types Packs/Day Years Used Date Smoking Tobacco: Never Assessed Sex and Gender Information Value Date Recorded Sex Assigned at Not on file Gender Identity Not on file Sexual Orientation Not on file documented as of this encounter Discharge Summaries * Jessika Rivera MD - 01/13/2009 1403 EDT HISS DISCHARGE SUMMARY ADDRESS: [address] [place] [id number] PHONE: [phone] ATTENDING PHYSICIAN: JODI CHRISTIE MD ADDRESS: [place] [address] [address] [place] [address] PHONE: [phone] REFERRING PHYSICIAN: YAN GOEL MD ADDRESS: [facility] [address] [place] [address] PHONE: [phone] ADMISSION DATE: 02/09/08 SERVICE: PED. MEDICINE TRANSFER TO IP: DISCHARGE DATE: 02/12/08 SERVICE: PED. MEDICINE CHIEF COMPLAINT / REASON FOR ADMISSION: Altered mental status PRINCIPAL/FINAL DIAGNOSIS: Hyponatremia Hypothermia COMPLICATIONS/CO-MORBID CONDTITIONS: Panhypopituitarism Central diabetes insipidus Adrenal insufficiency Hypothyroid s/p craniopharyngioma resection Blindness Developmental delay New onset seizures just prior to admission CONDITION AT DISCHARGE: Stable RELEVANT STUDIES: Chest x-ray: No focal infiltrates CT: 02/11/08: No acute changes MRI: 02/11/08: No acute changes EE02/11/08: slowing but no epileptiform pattern UA: hazy, sg<1.005, traceLE, neg nitrite, <1WBC, <1RBC, culture negative DISPOSITION AT DISCHARGE: Transferred to another acute care hospital for ongoing inpatient care ALLERGIES: The following allergies were reported by [...] the dose changed. Review doses carefully. 1) LEVOTHYROXINE SODIUM PIGGYBACK SYRINGE / (levothroid piggyback syringe) 87.5MCG INJECTION, ONCE A DAY, INTRAVENOUSLY 2) LEVETIRACETAM / (keppra) 300MG INFUSION, TWICE A DAY, INTRAVENOUSLY 3) HYDROCORTISONE SODIUM SUCCINATE / (solu-cortef) 100MG INJECTION, EVERY 8 HOURS, INTRAVENOUSLY 4) D5+1/2NS+KCL 20MEQ/L / (ivf-dextrose) 140ML INJECTION, EVERY HOUR, INTRAVENOUSLY, CON MEDICATIONS YOU WERE TAKING PRIOR TO ADMISSION THAT SHOULD BE STOPPED: NONE HERBAL REMEDIES, NUTRITIONAL SUPPLEMENTS, AND NIJF-DYR-EJZVSRO MEDICATIONS that have not been prescribed by a physician may have significant adverse side effect or may interfere with the medications that have been prescribed for you. If you are taking herbal remedies, nutritional supplements, or smxh-iob-rlavqcq medications you are strongly encouraged to discontinue their use until you have discussed your use of these products with your primary care physician. UPON ADMISSION YOU LISTED THE FOLLOWING HERBAL/SUPPLEMENTS/OTC: NONE ADDITIONAL MEDICATION INSTRUCTIONS: Various PO medications were held when the patient's mental status declined. These included Quetiapine, Sertraline, and Tamazepam. Patient also takes Niacin, Ca Carbonate and Docusate at home, but these had not been restarted. VITAL SIGNS/MEASUREMENTS: Weight at admission: 85kg Pulse 46 Respirations 8__ BP 104/56_ HOSPITAL COURSE: Miguel Angel is a 17 year old male with a history of panhypopituitarism who came to [facility] ER on 02/09/08 due to altered mental status. One week prior the patient had been seen at the [facility] ER following some seizure like activity at home. All laboratory evaluations were normal in the ER per mom and the patient was started on dilantin for seizure prophylaxis. During the next week the patient seemed to be fatigued, had decreased PO intake and just wasn't himself. He was evaluated by Dr. Bazan (Neurology) on 02/07 and dilantin was discontinued at this time. Due to continued symptoms on 02/08 he was taken to [facility] where he had a Temperature of 31, RR of 8 and HR of 42 and was found to be hyponatremic with a Na of 118. In the ER a 300mL bolus of 3% NaCl was administered and he was transferred to the PICU. While in the PICU the patient received stress doses of hydrocortisone 100mg q6h, and levothyroxine. DDAVP and dilantin were held. See PICU transfer summary for PICU course. On the afternoon of 02/08 the patient's Na increased to 121, he had improved mental status and was transferred to the general pediatrics floor. His home doses of quetiapine, sertraline and tamezepam were resumed. He complained of dysuria that evening and a UA was WNL and culture eventually had no growth. While on the floor the patient received frequent neuro checks, q4hour Na checks and Endcrinology was consulted. Over 02/09 the patients Na corrected from 130-142 and the patient received DDAVP for urine output >2ckh. By the afternoon of 02/10 the Na = 148. Neurology was consulted regarding the need for seizure prophylaxis and on 02/10 lamictal was given (1 dose). On 02/10 in the afternoon the patient started having involuntary rolling of the head and tongue movements during which he could follow commands. The patient then had a slowly declining mental status throughout the afternoon and became only intermittently active and at times was unable to follow commands. This process began prior to beginning any new medications and his sertraline, tamezepam, and quetiapine were held when his mental status declined. An EEG was performed and showed generalized slowing but no epileptiform activity. A CT and MRI were obtained and showed no acute changes. He was started on Keppra in case of seizures. The patient received cardiopulmonary monitoring and had frequent neuro checks. Ca, Mg, Phos, LFTs, Bun, Cr, ammonia, UA were checked and were all WNL. Serial VBGs showed a respiratory acidosis that was gradually improving. On the morning of 02/11 his Na increased to 151 and IVF were increased to 140cc/hr. At 1200 02/11 his sodium was 148. Because his dosing of hydrocortisone had been gradually decreased to 10 mg tid in an attempt to get him back on his home regimen of 20 mg per day, his dose was increased to 30 mg IV Q8 hours with little change in mental status. On 02/11 an additional stress dose of hydrocortisone 100mg IV was given and his dose was increased to 100 mg Q 8 hours. Due to bradycardia, a stat EKG was ordered and showed generalized T wave flattening and cardiology recommended repeating upon electrolyte normalization. A stat BS was 53 and a bolus of D25W was administered and the follow up blood glucose was 130. The patient seemed to have increased alertness and following of commands gradually after the admnistration of hydrocortisone. The patient's family continued to express interest in transfer to [place] and transport was arranged. He was transferred to [facility] on 02/12/08 by [facility] tranport. Recommendations from Endocrinology 02/11 were to decrease the hydrocortisone dose to 50 mg Q8 hours, but this is deferred at the time of transport and the 100 mg dose continued. An LP is recommended by Neurology because of concern for a toxic process but is deferred because patient is being transported at the time of this recommendation. This can be reevaluated by the accepting physicians. At transfer the patient is stable and his condition has improved slightly compared to the previous day. DIET: Regular diet according to mental status. All meals should be monitored. ACTIVITY: No restrictions on activity SHOWERING AND BATHING: No restrictions SYMPTOMS TO CALL YOUR DOCTOR ABOUT: Temperature greater than 100.4 degrees Difficulty breathing Breathing fast Change in mental status cc: Patient chart MD YAN TRINIDAD MD END OF REPORT D: JESSIKA RIVERA MD P - ZOHDocument ID: [id number] documented in this encounter Discharge Disposition Disposition Code Departure Means Destination Another Health Care Institution Not Defined documented in this encounter Progress Notes * Luis Bejarano MD, MD - 02/09/2008 0000 EDT INTRAFACILITY TRANSFER SUMMARY ADMIT DATE: 02/09/2008 TRANSFER DATE: 02/09/2008 ADMISSION DIAGNOSIS Hyponatremia. TRANSFER DIAGNOSIS Hyponatremia. HISTORY OF PRESENT ILLNESS Miguel Angel is a 17-year-old with a history of panhypopituitarism, who presentedon February 09, 2008, to [facility] ER with severe hyponatremia and mental status changes. He had been in his usual state of health until approximately one week prior to admission, when some seizure activity was noted at home. He was started on Dilantin and reportedly had normal electrolytes at that time. He had intermittently become more somnolent over the past week, and that was more pronounced on the day of admission. He was evaluated by neurology on February 08, 2008, and was instructed to hold his Dilantin. After holding his afternoon dose of Dilantin, he became more interactive and was able to eat. However, he did become more somnolent later in the day prior to arrival in the emergency room. PAST MEDICAL HISTORY 1. 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 2. Status post thalamic bleed. 3. Developmental delay. 4. Blindness. 5. Adrenal insufficiency. 6. Hypothyroidism (central). 7. Partial left-sided paralysis. 8. Central diabetes insipidus. 9. History of agitation/depression. 10. Hypertriglyceridemia. HOME MEDICATIONS 1. Calcium carbonate/vitamin D supplementation. 2. Levothyroxine 150 mcg daily. 3. Polyethylene glycol. 4. Quetiapine 600 mg daily. 5. Sertraline 200 mg daily. 6. Temazepam 15 mg daily. 7. Docusate 100 mg twice a day. 8. Desmopressin (DDAVP) 0.15 mg t.i.d. 9. Phenytoin 100 mg t.i.d. 10. Niacin 100 mg t.i.d. ALLERGIES LOPID. PICU COURSE BY SYSTEM 1. Fluids, electrolytes and nutrition. Patient was originally admitted with serum electrolytes of sodium 120, potassium 4.1, chloride 83, CO2 26, BUN 7, creatinine 0.57 and glucose of 76. He was given 3% hypertonic normal saline 300 mL upon arrival to the emergency room, and his electrolytes were closely monitored. He did receive his morning dose of DDAVP; however, subsequent doses were then held. He was allowed to eat a regular diet; however, his free water restricted. During the course of hisPICU admission, his electrolytes began to show some improvement. The plan is to transfer him to theregular inpatient floor with continued close monitoring of his urinary output. When he begins to show signs of diuresis, we will check another set of electrolytes. Until that time, we will continue q.4 h. checking of his electrolytes. The endocrinology team consulted regarding management of his multiple endocrine diseases and his new onset hyponatremia. They recommend continuing to hold the DDAVPuntil he begins to show signs of diuresis with gradual improvement of his serum sodium level. We willthen be looking to restart his DDAVP. 2. Respiratory. Miguel Angel was stable on room air throughout the admission. 3. Cardiovascular. Bettina hemodynamics were stable throughout his PICU admission. Upon original evaluation in the emergency room, he was noted to have some bradycardia to the upper 40s; however, thisimproved throughout his admission. 4. Neurologic. Miguel Angel does have a history of some possibleseizure activity, which was the reason forstarting his Phenytoin recently. However, neurology recommended holding this medication yesterday. We will continue to hold this medication pending further neurology evaluation. He had no acute neurologic signs during his admission to the pediatric ICU and no seizure activity. DISPOSITION Miguel Angel will be transferred to [place] [address] today. His family wishes to seek transfer to [facility], and those investigations are occurring at the time of transfer. CONDITION AT DISCHARGE Stable. Supervising Physician Signed by Otilio Castro MD 02/09/2008 15:43 Wilder Bejarano MD Otilio Castro MD - Wilder Bejarano MD P - [facility] Job ID: [id number] Document ID: [id number] cc: MD Otilio Alcantar MD Daniel W Larrow, MD documented in this encounter Consult Notes * Lc Cheng MD - 02/12/2008 0000 EDT INPATIENT CONSULTATION Admission Date: 02/09/2008 Date of consultation: 02/12/2008 This is an inpatient followup dictation on Miguel Angel Burgos for Dr. Jodi Christie. Miguel Angel was reported to have some increased wakefulness and some speech, not to his baseline, for at least some periods this early afternoon. His medications, which I believe may have contributed to his lethargy, which has been variable, have been held now 36 hours (Zoloft, Seroquel, temazepam). He has remained afebrile with in fact low temperatures and he has a heating blanket to support normothermia. Essentially, there has been little change in his condition since yesterday at 4 p.m. when I last evaluated him. On examination, he in fact has no appreciable pupillary light reflexes and I believe this has been present and part of his baseline. Neck is supple, no mucosal lesions. Currently, he does not respondto sternal rub consistently, but groans weakly. He does intermittently respond to one-step command to squeeze with his hand on the right; otherwise, no spontaneous movements. There is a slight eccentricity to the left pupil and it is about 1 mm greater on the left compared to the right. Sharp discsand a weak increased latency gag reflex. Corneal reflex is present. He is variably with eyes closedand then with eyes open and still with easy respirations, rate near 10. He has increased reflexes on the left. The neuro imaging was reviewed. Both head MRI and CT show no acute changes. No signs of myelinolysis, ischemia, hemorrhage, advancing hydrocephalus, subdural hematoma, etc. I doubt that his encephalopathy represents otherwise subclinical seizures, especially considering our brief EEG done yesterdayat 6 p.m. (slowing only). The picture overall is most consistent with a toxic encephalopathy, but the nature of the intoxication is unclear. Conceivably, this represents a prolonged effect of medicines that were administered on Friday evening. I do not see any other specific etiology to his encephalopathy. I repeated a recommendation for LP with opening pressure, considering the possibility ofan infection that might otherwise be masked in this youngster with panhypopituitarism and a bluntedstress response on that basis. The team is considering this and meanwhile, the parents have insisted on transfer to [facility]; arrival of transport is expected imminently. I would recommend that he continue on a relatively modest dose of [id number] mg b.i.d., in part because of his single seizure about two weeks ago that prompted Dilantin therapy, and this seems unlikely to be contributing to his encephalopathy, but this will have to continue to be monitored. I appreciate the chance to see Miguel Angel and hope the above is helpful. Sincerely, Signed by Lc Cheng MD 02/12/2008 15:31 Lc Cheng MD D: - Lc Chegn MD P - SS Job ID: [id number] Document ID: [id number] cc: MD Yan Walker MD Christa M Zehle, MD * Lc Cheng MD - 02/11/2008 0000 EDT INPATIENT CONSULTATION Admission Date: 02/09/2008 Date of consultation: 02/11/2008 This is an inpatient pediatric neurologic follow-up consultation/reconsultation on this [id number]-oyqmbed left hemiparesis, panhypopituitarism, craniopharyngioma resection, new onset seizure, and recent recovery from hyponatremia associated with phenytointoxicity. He was emerging in terms of his mental status, talking in a clear voice this morning, and able to stand and bear weight. He had a deterioration in his mental status and responsiveness since 1:30 withsome waxing and waning intermittently between 1:30 and 3:30, at least able to respond to some one-step commands without speaking. With this, there were intercurrent periods reported as lasting a minute or so of a slow head nodding movement (horizontal) variably associated with chewing. There were eye roving movements but no specific nystagmus reported or sustained tonic eye deviation. His mother noted increased tone in the left arm with this. In the meantime, his vital signs though otherwise stable showed a hypothermia jazmín near 34.5 degrees C. Repeat electrolytes were normal including glucose and calcium. I recommended addition of BUN and creatinine, LFTs, ammonia (all essentially normal). He has been off of phenytoin and his usual eveningdoses of medications were last given at 5:00 p.m. last night and thus there was no evidence of an intercurrent medication intoxication causing this deterioration with waxing and waning features. Examination at 3:30 showed increased tone with fisting in the left arm, more than his usual baseline hypertonia, upgoing toe on the left, no significant spontaneous movements except head turning somewhat to voice and ability to reach for a hand and toucha hand and grasp a hand to command. He is blind and has no meaningful visual responsiveness. He has sharp discs, brisk reflexes in the left side.No cranial nerve deficits otherwise, conjugate gaze. He remains mute. This was an exam spanning theperiod 3:30 to 4:15. At 5:15, he is still slow response, localizing to pain with his right arm bringing up to the chest to pull the hand away. He remains mute. His respiratory rate at times slows to 8-10 per minute. He remains afebrile (low, in fact, near 35 degrees C). We performed an EEG on a stat basis and this shows bilateral slowing and I believe to a greater degree than a study done here in November. There are no paroxysmal features. Impression is that of a toxic/metabolic encephalopathy. There is the possibility of dysmyelination related to fluxes in sodium but no specific brainstem signs except perhaps some slowing of his respirations. We will extend the baseline metabolic evaluation as outlined with ammonia and proceed to MRI to address the possibility of central pontine myelinolysis. His family is concerned, especially his stepmother, of the possibility of a vascular lesion, is currently upset and frustrated with the service. She states Fix him in one hour or were leaving. If we are unableto perform an MRI on a stat basis in the next 60 minutes, we will move to a noncontrast CT considering his deterioration in mental status. I donsee him as at particular risk of a stroke ofany kind (his parents particular concern) in terms of his medical history of liability but we did review the positive family history of stroke and cardiovascular disease at a young age in the paternal grandfather in his 20s. It is conceivable that he has developed a secondary hydrocephalus but there is no other particular reason for this considering his recent medical history and complications. We will review the neural imaging tonight and discuss further with the team. [result of CT & MRI-essentially no acute changes]. My impression is that of a toxic/metabolic encephalopathy but the exact cause is unclear. Notwithstanding this uncertainty, if we keep sedating medications at a minimum I would expect him to recover.If his encephalopathy/mental status depression continues we should consider performing an LP to ensure against an infectious cause. Discussed in detail with the residents and Dr. Christie. I appreciate the chance to see Miguel Angel and hope the above is helpful. Sincerely, Signed by Lc Cheng MD 02/12/2008 10:48 Lc Cheng MD D: - Lc Cheng MD P - Job ID: [id number] Document ID: [id number] cc: MD Yan Walker MD Christa M Zehle, MD * Lc Cheng MD - 02/10/2008 0000 EDT INPATIENT CONSULTATION Admission Date: 02/09/2008 Date of consultation: 02/10/2008 This is an inpatient neurologic evaluation at the request of Dr. Jodi Christie. The question concerns continuation of seizure medication in the setting of seizure two weeks ago (subsequent evaluationby Dr. Bazan) and admission now for changes in mental status with associated hyponatremia. There is some concern that there may be an interaction between phenytoin and DDAVP, an essential medicine for this youngster with diabetes insipidus. In any case the history supports behavior phenytoin toxicity. Considering that he has had by my reckoning a single generalized unprovoked seizure andhas cortical brain lesions that are the likely basis of this or primary contributor, I would suggest that he continue for the time being on an alternative seizure medication despite the single seizure scenario. The agent least likely to cause behavior or other interaction would seem to be Lamictal with Keppra as an alternative. I suggested he be started on Lamictal (subsequently changed to Keppra) 25 mg daily watching for side effects emphasizing rare serious rash. I will discuss this with the pediatric endocrinology team and have discussed it with Dr. Christie. Evidently, hehad some delay prior to emerging symptoms of what was found to be a craniopharyngioma and history related to that and subsequent history up to last November was also reviewed by Dr. Bazan. 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 However, he did not have any sign or symptom of seizure. He has been followed by our endocrinology team. In November 2007 he had a hospitalization with his sodium derangement and in the course ofthat, he had an event that represents a suspected seizure outlined by Dr. Bazan with brief stiffening and upgaze, no convulsive movements, lasting 30-45 seconds. He made a full recovery from this andat that time had an EEG with only mild lateralized slowing right temporal greater than left. He haddone well until about two weeks ago when he had an event that seems clearly to have been a single, generalized, self-limited convulsiveseizure with some prodromal myoclonic jerks. He made a full recovery from this, but in the course of evaluation and treatment for that including CT at a [facility], was started on phenytoin. Since that time, he has had some decreased responsivenessand balance (phenytoin 100 mg t.i.d.). He came in because of mental status change and has been hospitalized here for the last three days and had correction of what was found to be hyponatremia and jainism of his usual DDAVP regime along with other medications. Up until this time or as of my examination of him on the evening of February 10, 2008, he still had some depression of mental status but is coming around with some of his usual responsiveness- able to follow commands, at times with normal speech cl arity (relative to his baseline). He also has monthly testosterone injections. He takes niacin, temazepam for sleep which has been very helpful 15 mg, thyroxin supplementation and sertraline. He has hydrocortisone related to panhypopituitarism. There is a history of diabetes mellitus in his mother who and he lives at home with his fatherand his step-mother. 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 There is no family history of epilepsy. His recent weight was estimated at 190 pounds. He does have tone changes commensurate with a left hemiparesis but is mostly somnolent. Has no cranial nerve abnormalities (except for some anisocoria which I suspect is his current baseline - left greater than right) or abnormal spontaneous movements. Though he has had a single unprovoked seizure for sure and the possible seizure in November 2007, he hasby my estimate a near 90% chance of future recurrence of otherwise unprovoked seizures most likely related to his cortical lesion which I reviewed on his MRIdone here in November 2007 (recent imaging study not available for comparison). Alternatives would include levetiracetam, Lamictal, Trileptal. I will confirm with the endocrinology possible other interactions but would be inclined to start him on Lamictal. Should he remain seizure free for one year, we could consider taping and discontinuing themedication considering the course of his seizures to date. For now, I otherwise did not suggest further testing or intervention as sodium has been brought under controlin terms of hyponatremia. We spent over half of a 25-minute visit in coordination of care, including review of testing, symptom management, and plans/contingencies for followup as outlined above. I appreciate the chance to see Miguel Angel and hope the above is helpful. Signed by Lc Cheng MD 02/12/2008 10:47 Lc Cheng MD D: - Lc Cheng MD A - SADE Job ID: [id number] Document ID: [id number] cc: MD Rui Walker III, MD Daniel W Larrow, MD Christa M Zehle, MD documented in this encounter Plan of Treatment Upcoming Encounters Date Type Department Care Team (Late st Contact Info) Description 09/09/2024 10:20 EST Office Visit [facility] Endocrinology - [address] [address] Day Littlejohn MD PhD [address] [place] [address] [place] [id number] documented as of this encounter Procedures Procedure Name Priority Date/Time Associated Diagnosis Comments ELECTROLYTES Routine 02/12/2008 12:00 EDT BLOOD GAS, G3 ISTAT Routine 02/12/2008 1 0:45 EDT GLUCOSE, GLUCOMETER Routine 02/12/2008 1 0:05 EDT BLOOD GAS, G3 ISTAT Routine 02/12/2008 8 :58 EDT GLUCOSE, GLUCOMETER Routine 02/12/2008 8 :51 EDT PHOSPHORUS Routine 02/12/2008 8:35 EDT MAGNESIUM Routine 02/12/2008 8:35 EDT CALCIUM Routine 02/12/2008 8:35 EDT GLUCOSE, GLUCOMETER Routine 02/12/2008 8 :17 EDT TESTS ADDED BY PHONE Routine 02/12/2008 5:55 EDT BUN Routine 02/12/2008 5:55 EDT CREATININE Routine 02/12/2008 5:55 EDT ELECTROLYTES Routine 02/12/2008 5:55 EDT TESTS ADDED BY PHONE Routine 02/12/2008 2:05 EDT CORTISOL Routine 02/12/2008 2:05 EDT ELECTROLYTES Routine 02/12/2008 2:05 EDT BLOOD GAS, G3 ISTAT Routine 02/11/2008 2 2:15 EDT ELECTROLYTES Routine 02/11/2008 21:50 EDT MR HEAD W/WO CONTRAST 02/11/2008 20:14 EDT URINALYSIS WITH MICROSCOPIC IF POSITIVE Routine 02/11/2008 19:10 EDT UA REFLEX Routine 02/11/2008 19:10 EDT URINE CULTURE IF POSITIVE Routine 02/11/2008 19:10 EDT BLOOD GAS, G3 ISTAT Routine 02/11/2008 1 8:[address] HEAD WO CONTRAST 02/11/2008 1 8:44 EDT TESTS ADDED BY PHONE Routine 02/11/2008 18:12 EDT BUN Routine 02/11/2008 18:12 EDT SODIUM Routine 02/11/2008 18:12 EDT POTASSIUM Routine 02/11/2008 18:12 EDT CREATININE Routine 02/11/2008 18:12 EDT CHLORIDE Routine 02/11/2008 18:12 EDT CO2 Routine 02/11/2008 18:12 EDT AMMONIA Routine 02/11/2008 18:12 EDT TESTS ADDED BY PHONE Routine 02/11/2008 15:28 EDT DIFFERENTIAL Routine 02/11/2008 15:28 EDT COMPLETE BLOOD COUNT Routine 02/11/2008 15:28 EDT TOTAL & DIRECT BILIRUBIN Routine 02/11/2008 15:28 EDT ALT Routine 02/11/2008 15:28 EDT AST Routine 02/11/2008 15:28 EDT PHOSPHORUS Routine 02/11/2008 15:28 EDT ALKALINE PHOSPHATASE Routine 02/11/2008 15:28 EDT MAGNESIUM Routine 02/11/2008 15:28 EDT CALCIUM Routine 02/11/2008 15:28 EDT ELECTROLYTES Routine 02/11/2008 15:28 EDT GLUCOSE, GLUCOMETER Routine 02/11/2008 1 5:22 EDT ELECTROLYTES Routine 02/11/2008 6:00 EDT ELECTROLYTES Routine 02/11/2008 2:05 EDT ELECTROLYTES Routine 02/10/2008 21:55 EDT ELECTROLYTES Routine 02/10/2008 18:15 EDT ELECTROLYTES Routine 02/10/2008 14:00 EDT ELECTROLYTES Routine 02/10/2008 10:12 EDT GLUCOSE, GLUCOMETER Routine 02/10/2008 8 :13 EDT ELECTROLYTES Routine 02/10/2008 8:05 EDT ELECTROLYTES Routine 02/10/2008 4:00 EDT ELECTROLYTES Routine 02/09/2008 23:15 EDT URINE CULTURE IF POSITIVE Routine 02/09/2008 21:15 EDT URINE CHEMICAL (DIP) & SEDIMENT (MICRO) WITHOUT REFLEX TO CULTURE Routine 02/09/2008 21:15 EDT BACTERIAL CULTURE, URINE Routine 02/09/2008 21:15 EDT ELECTROLYTES Routine 02/09/2008 21:15 EDT ELECTROLYTES Routine 02/09/2008 18:05 EDT GLUCOSE, GLUCOMETER Routine 02/09/2008 1 7:59 EDT ELECTROLYTES Routine 02/09/2008 16:10 EDT GLUCOSE, GLUCOMETER Routine 02/09/2008 1 6:06 EDT ELECTROLYTES Routine 02/09/2008 14:09 EDT GLUCOSE, GLUCOMETER Routine 02/09/2008 1 4:01 EDT URINE MICROSCOPIC Routine 02/09/2008 13: 37 EDT URINALYSIS WITH MICROSCOPIC IF POSITIVE Routine 02/09/2008 13:37 EDT SODIUM, URINE RANDOM Routine 02/09/2008 13:37 EDT OSMOLALITY, URINE Routine 02/09/2008 13: 37 EDT TESTS ADDED BY PHONE Routine 02/09/2008 12:06 EDT T4 FREE Routine 02/09/2008 12:06 EDT ELECTROLYTES Routine 02/09/2008 12:06 EDT GLUCOSE, GLUCOMETER Routine 02/09/2008 1 1:59 EDT GLUCOSE, GLUCOMETER Routine 02/09/2008 1 0:09 EDT ELECTROLYTES Routine 02/09/2008 9:49 EDT ELECTROLYTES Routine 02/09/2008 8:09 EDT GLUCOSE, GLUCOMETER Routine 02/09/2008 8 :08 EDT ZZBLOOD GAS, G3 ISTAT Routine 02/09/2008 8:08 EDT ELECTROLYTES Routine 02/09/2008 6:55 EDT BLOOD GAS, G3 ISTAT Routine 02/09/2008 5 :35 EDT MRSA PCR Routine 02/09/2008 5:18 EDT URINALYSIS WITH MICROSCOPIC IF POSITIVE Routine 02/09/2008 5:15 EDT UA REFLEX Routine 02/09/2008 5:15 EDT URINE CULTURE IF POSITIVE Routine 02/09/2008 5:15 EDT BUN Routine 02/09/2008 5:15 EDT PHOSPHORUS Routine 02/09/2008 5:15 EDT MAGNESIUM Routine 02/09/2008 5:15 EDT GLUCOSE, SERUM Routine 02/09/2008 5:15 EDT CREATININE Routine 02/09/2008 5:15 EDT ELECTROLYTES Routine 02/09/2008 5:15 EDT GLUCOSE, GLUCOMETER Routine 02/09/2008 0 :01 EDT documented in this encounter Results * (ABNORMAL) ELECTROLYTES (02/12/2008 12:00 EDT) Sodium 148(H) 136 - 145 mEq/L [facility] Comment: Slight hemolysis Heparinized plasma. Potassium 3.6 3.5 - 5.0 mEq/L [facility] Comment: Hemolysis may elevate potassium result. Slight hemolysis Heparinized plasma. Chloride 119(H) 96 - 110 mEq/L [facility] Comment: Slight hemolysis Heparinized plasma. CO2 21(L) 24 - 32 mEq/L [facility] Comment: Slight hemolysis Heparinized plasma. 02/12/2008 12:0 0 EDT 02/12/2008 12:22 EDT Jodi Christie MD CHEMISTRY & BLOOD GA S ORDERABLES [facility] [address] [place] [address] * (ABNORMAL) BLOOD GAS, G3 ISTAT (02/12/2008 10:45 EDT) pH, i-STAT 7.38 7.35 - 7.45 [facility] pCO2, i-STAT 45 35 - 45 mmHg [facility] pO2, i-STAT 113(H) 85 - 100 mmHg [facility] TCO2, i-STAT 28 mEq/L [facility] O2 Saturation 98 % [facility] Base Excess 1 [facility] Sample Type NOT GIVEN [facility] [place] [id number] Test performed by Chemistry [facility] 02/12/2008 10:4 5 EDT 02/12/2008 10:50 EDT Jodi Christie MD CHEMISTRY & BLOOD GA S ORDERABLES Performing Organization Address [facility] Co de Phone Number [facility] [address] [place] [address] * (ABNORMAL) GLUCOSE, GLUCOMETER (02/12/2008 10:05 EDT) Glucose, Fingerstick 125(H) 70 - 100 mg/dl [facility] Rider Ticket Worker ID [id number] Test Performed by Nursing Services [facility] 02/12/2008 10:0 5 EDT 02/13/2008 3:40 EDT Jodi Christie MD CHEMISTRY & BLOOD GA S ORDERABLES Performing Organization Address [facility] de Phone Number [facility] [address] [place] [address] * (ABNORMAL) BLOOD GAS, G3 ISTAT (02/12/2008 8:58 EDT) pH, i-STAT 7.50(H) 7.35 - 7.45 [facility] pCO2, i-STAT 31(L) 35 - 45 mmHg [facility] pO2, i-STAT 248(H) 85 - 100 mmHg [facility] TCO2, i-STAT 25 mEq/L [facility] O2 Saturation 100 % [facility] Base Excess 2 [facility] Sample Type NOT GIVEN [facility] [place] [id number] Test performed by Chemistry [facility] 02/12/2008 8:58 EDT 02/12/2008 9:03 EDT Jodi Christie MD CHEMISTRY & BLOOD GA S ORDERABLES Performing Organization Address [facility] Co de Phone Number [facility] [address] [place] [address] * (ABNORMAL) GLUCOSE, GLUCOMETER (02/12/2008 8:51 EDT) Glucose, Fingerstick 130(H) 70 - 100 mg/dl [facility] Rider Ticket Worker ID [id number] Test Performed by Nursing Services [facility] 02/12/2008 8:51 EDT 02/13/2008 3:29 EDT Jodi Christie MD CHEMISTRY & BLOOD GA S ORDERABLES Performing Organization Address [facility] Co de Phone Number [facility] [address] [place] [address] * (ABNORMAL) PHOSPHORUS (02/12/2008 8:35 EDT) Phosphorus 5.6(H) 2.7 - 4.7 mg/dl [facility] Comment: Results may be affected due to hemolysis. Slight hemolysis 02/12/2008 8:35 EDT 02/12/2008 8:48 EDT Jodi Christie MD CHEMISTRY & BLOOD GA S ORDERABLES Performing Organization Address [facility] de Phone Number [facility] [address] [place] [address] * MAGNESIUM (02/12/2008 8:35 EDT) Magnesium 2.1 1.7 - 2.8 mg/dl [facility] Comment: Results may be affected due to hemolysis. Slight hemolysis 02/12/2008 8:35 EDT 02/12/2008 8:48 EDT Jodi Christie MD CHEMISTRY & BLOOD GA S ORDERABLES Performing Organization Address [facility] de Phone Number [facility] [address] [place] [address] * CALCIUM (02/12/2008 8:35 EDT) Calcium 9.2 8.5 - 10.5 mg/dl [facility] Comment:Slight hemolysis Calculated Calcium 8.8 8.5 - 10.5 mg/dl [facility] Comment: Results may be affected due to hemolysis. Slight hemolysis 02/12/2008 8:35 EDT 02/12/2008 8:48 EDT Jodi Christie MD CHEMISTRY & BLOOD GA S ORDERABLES Performing Organization Address [facility] Co de Phone Number [facility] [address] [place] [address] * (ABNORMAL) GLUCOSE, GLUCOMETER (02/12/2008 8:17 EDT) Glucose, Fingerstick 53(L) 70 - 100 mg/dl [facility] Rider Ticket Worker ID [id number] Test Performed by Nursing Services [facility] 02/12/2008 8:17 EDT 02/13/2008 3:29 EDT Jodi Christie MD CHEMISTRY & BLOOD GA S ORDERABLES Performing Organization Address City/[facility]/ZIP Co de Phone Number [facility] [address] [place] [address] * CREATININE (02/12/2008 5:55 EDT) Creatinine 1.10 0.6 - 1.2 mg/dl [facility] Comment:Heparinized plasma. GFR, Calculated Age <18 Heparinize d plasma. ml/min/1.7 3m2 [facility] 02/12/2008 5:55 EDT 02/12/2008 6:21 EDT Jodi Christie MD CHEMISTRY & BLOOD GA S ORDERABLES Performing Organization Address City/[facility]/ZIP Co de Phone Number [facility] [address] [place] [address] * BUN (02/12/2008 5:55 EDT) BUN 15 8 - 21 mg/dl [facility] Comment:Heparinized plasma. 02/12/2008 5:55 EDT 02/12/2008 6:21 EDT Jodi Christie MD CHEMISTRY & BLOOD GA S ORDERABLES Performing Organization Address City/[facility]/ZIP Co de Phone Number [facility] [address] [place] [address] * TESTS ADDED BY PHONE (02/12/2008 5:55 EDT) Tests to be added ADRIANA GARCIA Who Called [facility] Location Code B5 [facility] 02/12/2008 5:55 EDT 02/12/2008 6:21 EDT Jodi Christie MD CHEMISTRY & BLOOD GA S ORDERABLES Performing Organization Address [facility] Co de Phone Number [facility] [address] [place] [address] * (ABNORMAL) ELECTROLYTES (02/12/2008 5:55 EDT) Sodium 151(H) 136 - 145 mEq/L [facility] Comment:Heparinized plasma. Potassium 3.4(L) 3.5 - 5.0 mEq/L [facility] Comment:Heparinized plasma. Chloride 110 96 - 110 mEq/L [facility] Comment:Heparinized plasma. CO2 27 24 - 32 mEq/L [facility] Comment:Heparinized plasma. 02/12/2008 5:55 EDT 02/12/2008 6:21 EDT Jodi Christie MD CHEMISTRY & BLOOD GA S ORDERABLES Performing Organization Address [facility] Co de Phone Number [facility] [address] [place] [address] * CORTISOL (02/12/2008 2:05 EDT) Cortisol Wrong tube/speci men type ug/dl [facility] Comment:CANNOT BE RUN ON GRE EN MICROTAINER 02/12/2008 2:05 EDT 02/12/2008 2:17 EDT Jodi Christie MD CHEMISTRY & BLOOD GA S ORDERABLES Performing Organization Address City/[facility] Co de Phone Number [facility] [address] [place] [address] * TESTS ADDED BY PHONE (02/12/2008 2:05 EDT) Tests to be added [facility] Who Called [facility] Location Code B5 [facility] 02/12/2008 2:05 EDT 02/12/2008 2:17 EDT Jodi Christie MD CHEMISTRY & BLOOD GA S ORDERABLES Performing Organization Address [facility] Co de Phone Number [facility] [address] [place] [address] * (ABNORMAL) ELECTROLYTES (02/12/2008 2:05 EDT) Sodium 146(H) 136 - 145 mEq/L [facility] Potassium 3.9 3.5 - 5.0 mEq/L [facility] Chloride 108 96 - 110 mEq/L [facility] CO2 27 24 - 32 mEq/L [facility] 02/12/2008 2:05 EDT 02/12/2008 2:17 EDT Jodi Christie MD CHEMISTRY & BLOOD GA S ORDERABLES Performing Organization Address [facility] de Phone Number [facility] [address] [place] [address] * (ABNORMAL) BLOOD GAS, G3 ISTAT (02/11/2008 22:15 EDT) pH, i-STAT 7.35 7.35 - 7.45 [facility] pCO2, i-STAT 53(H) 35 - 45 mmHg [facility] pO2, i-STAT 31(L) 85 - 100 mmHg [facility] TCO2, i-STAT 32 mEq/L [facility] O2 Saturation 63 % [facility] Base Excess 2 [facility] Temperature 34.8 C [facility] Sample Type NOT GIVEN [facility] crm manager [place] [id number] Test performed by Chemistry [facility] 02/11/2008 22:1 5 EDT 02/11/2008 22:20 EDT Jodi Christie MD CHEMISTRY & BLOOD GA S ORDERABLES Performing Organization Address [facility] Co de Phone Number [facility] [address] [place] [address] * (ABNORMAL) ELECTROLYTES (02/11/2008 21:50 EDT) Sodium 149(H) 136 - 145 mEq/L [facility] Potassium 4.4 3.5 - 5.0 mEq/L [facility] Chloride 108 96 - 110 mEq/L [facility] CO2 29 24 - 32 mEq/L [facility] 02/11/2008 21:5 0 EDT 02/11/2008 22:07 EDT Jodi Christie MD CHEMISTRY & BLOOD GA S ORDERABLES [facility] [address] [place] [address] * MR HEAD W/WO CONTRAST (02/11/2008 20:14 EDT) Anatomical Region Laterality Modality Other 02/11/2008 20:1 4 EDT Narrative 12/18/2008 13:47 EDT Altered mental status-pt with h/o hyponatremia and seizures MR HEAD WWO/CONTRAST ??Feb 11, 2008 8:15:28 PM Impression: 1. 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 3. Right frontal, left frontal and right temporal encephalomalacia. 4. Lacunar infarcts in the right than left thalamus. 5. Ventriculomegaly, no change. Clinical History: Altered mental status-pt with h/o hyponatremia and seizures Technique: M RI of the brain was performed with axial T2 gradient-echo, axial T2 FLAIR, axial sagittal and coronal T1 pre- and postgadolinium and axial diffusion weighted sequences. Comparison: 11/29/2007 Findings: Craniotomy ??changes are again identified in the right frontal and temporal bones. Macrocystic encephalomalacia and gliosis is present in both from frontal lobes and in the right temporal lobe. An aneurysm clip is in place is generating susceptibility artifacts. The third, the ??fourth and lateral ventricles are dilated but ?? unchanged in size as compared to the previous study. Lacunar infarcts are again noted in the right than left thalamus. Small residual tumor is again identified in the suprasellar cistern but not well ??visualized. The cisterna magna is asymmetrically enlarged. It is anatomical variation. The major arteries of the COW are patent. No appreciable change is identified as compared to the previous study. Pontine or extra pontine myelinolysis is not present. Procedure Note Sandra Zavala MD - 12/18/2008 Altered mental status-pt with h/o hyponatremia and seizures MR HEAD WWO/CONTRAST Feb 11, 2008 8:15:28 PM Impression: 1. 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 3. Right frontal, left frontal and right temporal encephalomalacia. 4. Lacunar infarcts in the right than left thalamus. 5. Ventriculomegaly, no change. Clinical History: Altered mental status-pt with h/o hyponatremia and seizures Technique: M RI of the brain was performed with axial T2 gradient-echo, axial T2 FLAIR, axial sagittal and coronal T1 pre- and postgadolinium and axial diffusion weighted sequences. Comparison: 11/29/2007 Findings: Craniotomy changes are again identified in the right frontal and temporal bones. Macrocystic encephalomalacia and gliosis is present in both from frontal lobes and in the right temporal lobe. An aneurysm clip is in place is generating susceptibility artifacts. The third, the fourth and lateral ventricles are dilated but unchanged in size as compared to the previous study. Lacunar infarcts are again noted in the right than left thalamus. Small residual tumor is again identified in the suprasellar cistern but not well visualized. The cisterna magna is asymmetrically enlarged. It is anatomical variation. The major arteries of the COW are patent. No appreciable change is identified as compared to the previous study. Pontine or extra pontine myelinolysis is not present. Jodi Christie MD IMG MRI ORDERABLES * CULTURE IF UA POSITIVE (02/11/2008 19:10 EDT) Culture if Indicated Culture not indicated by urinalysis results. [facility] 02/11/2008 19:1 0 EDT 02/11/2008 19:21 EDT Jodi Christie MD MICROBIOLOGY - [facility] ORDERABLES [facility] [address] [place] [address] * UA REFLEX (02/11/2008 19:10 EDT) UA Billing Microscopic not indicated. [facility] 02/11/2008 19:1 0 EDT 02/11/2008 19:21 EDT Jodi Christie MD URINALYSIS ORDERABLE S Performing Organization Address [facility] de Phone Number [facility] [address] [place] [address] * (ABNORMAL) URINALYSIS, CHEMICAL (02/11/2008 19:10 EDT) Color, UA Straw [facility] Clarity, UA Clear [facility] Glucose, UA Norm NORM [facility] Bilirubin, UA Neg NEG [facility] Ketones, UA Neg NEG [facility] Specific [place], Urine <1.005(L) 1.005 - 1.02 [facility] Blood, UA Neg NEG [facility] pH, UA 6.0 5.0 - 9.0 [facility] Protein, UA Neg NEG [facility] Urobilinogen, UA Norm NORM mg/dL [facility] Nitrite, UA Neg NEG [facility] Leuk Esterase Neg NEG [facility] 02/11/2008 19:1 0 EDT 02/11/2008 19:21 EDT Jodi Christie MD URINALYSIS ORDERABLE S Performing Organization Address [facility] de Phone Number [facility] [address] [place] [address] * (ABNORMAL) BLOOD GAS, G3 ISTAT (02/11/2008 18:45 EDT) pH, i-STAT 7.31(L) 7.35 - 7.45 [facility] pCO2, i-STAT 54(H) 35 - 45 mmHg [facility] pO2, i-STAT 53(L) 85 - 100 mmHg [facility] TCO2, i-STAT 29 mEq/L [facility] O2 Saturation 83 % [facility] Base Excess 0 [facility] Sample Type NOT GIVEN [facility] crm [place] [id number] Test performed by Chemistry [facility] 02/11/2008 18:4 5 EDT 02/11/2008 18:50 EDT Jodi Christie MD CHEMISTRY & BLOOD GA S ORDERABLES [facility] [address] [place] [address] * CT HEAD WO CONTRAST (02/11/2008 18:44 EDT) Anatomical Region Laterality Modality Other 02/11/2008 18:4 4 EDT Narrative 12/18/2008 13:47 EDT history of hyponatremia and seizure now with altered mental status CT HEAD W/O CONTRAST ??Feb 11, 2008 6:44:00 PM Indication: history of hyponatremia and seizure now with altered mental status Comparison: November 28, 2007 and November 29, 2004 Technique: Axial noncontrast images of the head were helically acquired from the foramen magnum to the vertex. Findings: Macrocystic encephalomalacia is again noted right frontal lobe, bilateral thalami, and left gyrus rectus. Ex vacuo dilatation of the frontal, and temporal horns of the right lateral ventricle and of the third ventricle is again noted. Enlargement of the sella turcica is also unchanged. ??An aneurysm clip is noted in the expected position of the right P1 segment. No intracranial hemorrhage or extra-axial collection are noted. There is no focal mass effect. There is no CT evidence of acute stroke. No hypoattenuation is noted in the azeb. Healed right frontal orbital zygomatic craniotomy is seen. Bimaxillary and biethmoid mucosal sinus disease is again noted. Impression: No acute findings. Chronic right frontal, bithalamic, and left gyrus rectus encephalomalacia with ex vacuo enlargement of the adjacent ventricles and extra-axial CSF spaces. Case was reviewed with MARIANA MAST at the time of interpretation I have personally reviewed the images and the above interpretation and agree with the findings. Procedure Note Arthur Duggan MD / Sandra Zavala MD - 12/18/2008 history of hyponatremia and seizure now with altered mental status CT HEAD W/O CONTRAST Feb 11, 2008 6:44:00 PM Indication: history of hyponatremia and seizure now with altered mental status Comparison: November 28, 2007 and November 29, 2004 Technique: Axial noncontrast images of the head were helically acquired from the foramen magnum to the vertex. Findings: Macrocystic encephalomalacia is again noted right frontal lobe, bilateral thalami, and left gyrus rectus. Ex vacuo dilatation of the frontal, and temporal horns of the right lateral ventricle and of the third ventricle is again noted. Enlargement of the sella turcica is also unchanged. An aneurysm clip is noted in the expected position of the right P1 segment. No intracranial hemorrhage or extra-axial collection are noted. There is no focal mass effect. There is no CT evidence of acute stroke. No hypoattenuation is noted in the azeb. Healed right frontal orbital zygomatic craniotomy is seen. Bimaxillary and biethmoid mucosal sinus disease is again noted. Impression: No acute findings. Chronic right frontal, bithalamic, and left gyrus rectus encephalomalacia with ex vacuo enlargement of the adjacent ventricles and extra-axial CSF spaces. Case was reviewed with MARIANA MAST at the time of interpretation I have personally reviewed the images and the above interpretation and agree with the findings. Mariana Mast MD G CT ORDERABLES * POTASSIUM (02/11/2008 18:12 EDT) Potassium 4.4 3.5 - 5.0 mEq/L [facility] 02/11/2008 18:1 2 EDT 02/11/2008 18:40 EDT Jodi Christie MD CHEMISTRY & BLOOD GA S ORDERABLES [facility] [address] [place] [address] * CO2 (02/11/2008 18:12 EDT) CO2 25 24 - 32 mEq/L [facility] 02/11/2008 18:1 2 EDT 02/11/2008 18:40 EDT Jodi Christie MD CHEMISTRY & BLOOD GA S ORDERABLES Performing Organization Address [facility] Co co Phone Number [facility] [address] [place] [address] * CHLORIDE (02/11/2008 18:12 EDT) Chloride 107 96 - 110 mEq/L [facility] 02/11/2008 18:1 2 EDT 02/11/2008 18:40 EDT Jodi Christie MD CHEMISTRY & BLOOD GA S ORDERABLES Performing Organization Address [facility] Phone Number [facility] [address] [place] [address] * (ABNORMAL) SODIUM (02/11/2008 18:12 EDT) Sodium 148(H) 136 - 145 mEq/L [facility] 02/11/2008 18:1 2 EDT 02/11/2008 18:40 EDT Jodi Christie MD CHEMISTRY & BLOOD GA S ORDERABLES Performing Organization Address [facility] Phone Number [facility] [address] [place] [address] * CREATININE (02/11/2008 18:12 EDT) Creatinine 0.90 0.6 - 1.2 mg/dl [facility] GFR, Calculated Age <18 ml/min/1.7 3m2 [facility] 02/11/2008 18:1 2 EDT 02/11/2008 18:40 EDT Jodi Christie MD CHEMISTRY & BLOOD GA S ORDERABLES Performing Organization Address [facility] de Phone Number [facility] [address] [place] [address] * BUN (02/11/2008 18:12 EDT) BUN 13 8 - 21 mg/dl [facility] 02/11/2008 18:1 2 EDT 02/11/2008 18:40 EDT Jodi Christie MD CHEMISTRY & BLOOD GA S ORDERABLES Performing Organization Address [facility] Co de Phone Number [facility] [address] [place] [address] * TESTS ADDED BY PHONE (02/11/2008 18:12 EDT) Tests to be added LYT STAT [facility] Who Called DR CATHY [facility] Location Code B5 [facility] 02/11/2008 18:1 2 EDT 02/11/2008 18:40 EDT Jodi Christie MD CHEMISTRY & BLOOD GA S ORDERABLES Performing Organization Address [facility] Co de Phone Number [facility] [address] [place] [address] * (ABNORMAL) AMMONIA (02/11/2008 18:12 EDT) Ammonia 40(H) 9 - 33 umol/L [facility] 02/11/2008 18:1 2 EDT 02/11/2008 18:40 EDT Jodi Christie MD CHEMISTRY & BLOOD GA S ORDERABLES Performing Organization Address [facility] de Phone Number [facility] [address] [place] [address] * DIFFERENTIAL (02/11/2008 15:28 EDT) Neutrophils 55.0 % [facility] Lymphocytes 40.0 % [facility] Monocytes 4.0 % [facility] Basophils 1.0 % [facility] ABS Neutrophils 3.06 K/cmm [facility] ABS Lymphs 2.23 K/cmm [facility] ABS Monocytes 0.22 K/cmm [facility] ABS Basophils 0.06 K/cmm [facility] RBC Morphology 1+ Anisocytosis 1+ Poikilocytosis 2+ Microcytes [facility] Type of Diff: Manual [facility] 02/11/2008 15:2 8 EDT 02/11/2008 15:39 EDT Jodi Christie MD HEMATOLOGY & PF4 ORD ERABLES Performing Organization Address [facility] Co de Phone Number [facility] [address] [place] [address] * TOTAL & DIRECT BILIRUBIN (02/11/2008 15:28 EDT) Conjugated Bilirubin 0.0 0.0 - 0.3 mg/dl [facility] Unconjugated Bilirubin 0.3 0.1 - 1.1 mg/dl [facility] Bilirubin, Total <0.5 0.0 - 1.4 mg/dl [facility] 02/11/2008 15:2 8 EDT 02/11/2008 15:39 EDT Jodi Christie MD CHEMISTRY & BLOOD GA S ORDERABLES Performing Organization Address [facility] de Phone Number [facility] [address] [place] [address] * AST (02/11/2008 15:28 EDT) AST 42 15 - 46 U/L [facility] 02/11/2008 15:2 8 EDT 02/11/2008 15:39 EDT Jodi Christie MD CHEMISTRY & BLOOD GA S ORDERABLES Performing Organization Address [facility] Co de Phone Number [facility] [address] [place] [address] * ALT (02/11/2008 15:28 EDT) ALT <11 0 - 45 U/L [facility] 02/11/2008 15:2 8 EDT 02/11/2008 15:39 EDT Jodi Christie MD CHEMISTRY & BLOOD GA S ORDERABLES Performing Organization Address City/[facility]/ZIP Co de Phone Number [facility] [address] [place] [address] * ALKALINE PHOSPHATASE (02/11/2008 15:28 EDT) Alkaline Phosphatase 179 65 - 260 U/L [facility] 02/11/2008 15:2 8 EDT 02/11/2008 15:39 EDT Jodi Christie MD CHEMISTRY & BLOOD GA S ORDERABLES Performing Organization Address City/[facility]/ZIP Co de Phone Number [facility] [address] [place] [address] * TESTS ADDED BY PHONE (02/11/2008 15:28 EDT) Tests to be added STAT ALT,AST,TDBI L,ALKP [facility] Who Called DR CATHY [facility] Location Code B5 [facility] 02/11/2008 15:2 8 EDT 02/11/2008 15:39 EDT Jodi Christie MD CHEMISTRY & BLOOD GA S ORDERABLES Performing Organization Address City/[facility] Co de Phone Number [facility] [address] [place] [address] * (ABNORMAL) HEMAGRAM (02/11/2008 15:28 EDT) WBC 5.57 4.6 - 11.2 K/cmm [facility] RBC 5.83(H) 4.50 - 5.30 M/cmm [facility] Hemoglobin 15.2 13.0 - 16.0 gm/dl [facility] HCT 44.7 37.0 - 49.0 % [facility] MCV 77(L) 78 - 98 fl [facility] MCH 26.0 pg [facility] MCHC 33.9 gm/dl [facility] PLT 183 156 - 312 K/cmm [facility] RDW-CV 17.0 % [facility] 02/11/2008 15:2 8 EDT 02/11/2008 15:39 EDT Jodi Christie MD HEMATOLOGY & PF4 ORD ERABLES Performing Organization Address [facility] Co de Phone Number [facility] [address] [place] [address] * (ABNORMAL) PHOSPHORUS (02/11/2008 15:28 EDT) Phosphorus 4.9(H) 2.7 - 4.7 mg/dl [facility] 02/11/2008 15:2 8 EDT 02/11/2008 15:39 EDT Jodi Christie MD CHEMISTRY & BLOOD GA S ORDERABLES Performing Organization Address [facility] de Phone Number [facility] [address] [place] [address] * MAGNESIUM (02/11/2008 15:28 EDT) Magnesium 2.0 1.7 - 2.8 mg/dl [facility] 02/11/2008 15:2 8 EDT 02/11/2008 15:39 EDT Jodi Christie MD CHEMISTRY & BLOOD GA S ORDERABLES Performing Organization Address [facility] de Phone Number [facility] [address] [place] [address] * CALCIUM (02/11/2008 15:28 EDT) Calcium 9.1 8.5 - 10.5 mg/dl [facility] Calculated Calcium 9.0 8.5 - 10.5 mg/dl [facility] 02/11/2008 15:2 8 EDT 02/11/2008 15:39 EDT Jodi Christie MD CHEMISTRY & BLOOD GA S ORDERABLES Performing Organization Address [facility] de Phone Number [facility] [address] [place] [address] * (ABNORMAL) ELECTROLYTES (02/11/2008 15:28 EDT) Sodium 148(H) 136 - 145 mEq/L [facility] Potassium 4.4 3.5 - 5.0 mEq/L [facility] Chloride 111(H) 96 - 110 mEq/L [facility] CO2 21(L) 24 - 32 mEq/L [facility] 02/11/2008 15:2 8 EDT 02/11/2008 15:39 EDT Jodi Christie MD CHEMISTRY & BLOOD GA S ORDERABLES Performing Organization Address [facility] Co de Phone Number [facility] [address] [place] [address] * GLUCOSE, GLUCOMETER (02/11/2008 15:22 EDT) Glucose, Fingerstick 81 70 - 100 mg/dl [facility] Rider Ticket Worker ID [id number] Test Performed by Nursing Services [facility] 02/11/2008 15:2 2 EDT 02/12/2008 1:19 EDT Jodi Christie MD CHEMISTRY & BLOOD GA S ORDERABLES Performing Organization Address [facility] de Phone Number [facility] [address] [place] [address] * ELECTROLYTES (02/11/2008 6:00 EDT) Sodium 142 136 - 145 mEq/L [facility] Potassium 4.1 3.5 - 5.0 mEq/L [facility] Chloride 103 96 - 110 mEq/L [facility] CO2 26 24 - 32 mEq/L [facility] 02/11/2008 6:00 EDT 02/11/2008 6:15 EDT Jodi Christie MD CHEMISTRY & BLOOD GA S ORDERABLES Performing Organization Address [facility] Co de Phone Number [facility] [address] [place] [address] * ELECTROLYTES (02/11/2008 2:05 EDT) Sodium 140 136 - 145 mEq/L [facility] Potassium 4.1 3.5 - 5.0 mEq/L [facility] Chloride 104 96 - 110 mEq/L [facility] CO2 24 24 - 32 mEq/L [facility] 02/11/2008 2:05 EDT 02/11/2008 2:32 EDT Jodi Christie MD CHEMISTRY & BLOOD GA S ORDERABLES Performing Organization Address [facility] Co de Phone Number [facility] [address] [place] [address] * (ABNORMAL) ELECTROLYTES (02/10/2008 21:55 EDT) Sodium 142 136 - 145 mEq/L [facility] Potassium 3.9 3.5 - 5.0 mEq/L [facility] Chloride 110 96 - 110 mEq/L [facility] CO2 22(L) 24 - 32 mEq/L [facility] 02/10/2008 21:5 5 EDT 02/10/2008 22:15 EDT Jodi Christie MD CHEMISTRY & BLOOD GA S ORDERABLES Performing Organization Address [facility] de Phone Number [facility] [address] [place] [address] * ELECTROLYTES (02/10/2008 18:15 EDT) Sodium 139 136 - 145 mEq/L [facility] Potassium 4.1 3.5 - 5.0 mEq/L [facility] Chloride 103 96 - 110 mEq/L [facility] CO2 25 24 - 32 mEq/L [facility] 02/10/2008 18:1 5 EDT 02/10/2008 19:10 EDT Jodi Christie MD CHEMISTRY & BLOOD GA S ORDERABLES Performing Organization Address [facility] de Phone Number [facility] [address] [place] [address] * ELECTROLYTES (02/10/2008 14:00 EDT) Sodium 136 136 - 145 mEq/L [facility] Potassium 3.6 3.5 - 5.0 mEq/L [facility] Chloride 100 96 - 110 mEq/L [facility] CO2 26 24 - 32 mEq/L [facility] 02/10/2008 14:0 0 EDT 02/10/2008 14:33 EDT Jodi Christie MD CHEMISTRY & BLOOD GA S ORDERABLES Performing Organization Address [facility] de Phone Number [facility] [address] [place] [address] * (ABNORMAL) ELECTROLYTES (02/10/2008 10:12 EDT) Sodium 134(L) 136 - 145 mEq/L [facility] Comment:Heparinized plasma. Potassium 4.1 3.5 - 5.0 mEq/L [facility] Comment:Heparinized plasma. Chloride 99 96 - 110 mEq/L [facility] Comment:Heparinized plasma. CO2 25 24 - 32 mEq/L [facility] Comment:Heparinized plasma. 02/10/2008 10:1 2 EDT 02/10/2008 10:12 EDT Jodi Christie MD CHEMISTRY & BLOOD GA S ORDERABLES Performing Organization Address [facility] Phone Number [facility] [address] [place] [address] * GLUCOSE, GLUCOMETER (02/10/2008 8:13 EDT) Glucose, Fingerstick 74 70 - 100 mg/dl [facility] Rider Ticket Worker ID [id number] Test Performed by Nursing Services [facility] 02/10/2008 8:13 EDT 02/10/2008 9:15 EDT Jodi Christie MD CHEMISTRY & BLOOD GA S ORDERABLES Performing Organization Address [facility] de Phone Number [facility] [address] [place] [address] * ELECTROLYTES (02/10/2008 8:05 EDT) Sodium Marked hemolysis Specimen unsuitable for analysis. Repeat Requested Heparinized plasma. Credit Issued 136 - 145 mEq/L [facility] Potassium Marked hemolysis Specimen unsuitable for analysis. Repeat Requested Heparinized plasma. Credit Issued 3.5 - 5.0 mEq/L [facility] Chloride Marked hemolysis Specimen unsuitable for analysis. Repeat Requested Heparinized plasma. Credit Issued 96 - 110 mEq/L [facility] CO2 Marked hemolysis Specimen unsuitable for analysis. Repeat Requested Heparinized plasma. Credit Issued 24 - 32 mEq/L [facility] 02/10/2008 8:05 EDT 02/10/2008 8:49 EDT Jodi Christie MD CHEMISTRY & BLOOD GA S ORDERABLES Performing Organization Address [facility] de Phone Number [facility] [address] [place] [address] * (ABNORMAL) ELECTROLYTES (02/10/2008 4:00 EDT) Sodium 130(L) 136 - 145 mEq/L [facility] Potassium 3.7 3.5 - 5.0 mEq/L [facility] Chloride 95(L) 96 - 110 mEq/L [facility] CO2 23(L) 24 - 32 mEq/L [facility] 02/10/2008 4:00 EDT 02/10/2008 4:29 EDT Jodi Christie MD CHEMISTRY & BLOOD GA S ORDERABLES Performing Organization Address [facility] Co de Phone Number [facility] [address] [place] [address] * (ABNORMAL) ELECTROLYTES (02/09/2008 23:15 EDT) Sodium 129(L) 136 - 145 mEq/L [facility] Potassium 3.6 3.5 - 5.0 mEq/L [facility] Chloride 96 96 - 110 mEq/L [facility] CO2 22(L) 24 - 32 mEq/L [facility] 02/09/2008 23:1 5 EDT 02/09/2008 23:41 EDT Jodi Christie MD CHEMISTRY & BLOOD GA S ORDERABLES Performing Organization Address [facility] de Phone Number [facility] [address] [place] [address] * BACTERIAL CULTURE, URINE (02/09/2008 21:15 EDT) Specimen Description Urine [facility] Result No growth [facility] Report Status Final [id number] [facility] 02/09/2008 21:1 5 EDT 02/09/2008 22:47 EDT Jodi Christie MD MICROBIOLOGY - GENER AL ORDERABLES Performing Organization Address [facility] Phone Number [facility] [address] [place] [address] * CULTURE IF UA POSITIVE (02/09/2008 21:15 EDT) Culture if Indicated Culture indicated by urinalysis results. [facility] 02/09/2008 21:1 5 EDT 02/09/2008 22:00 EDT Jodi Christie MD MICROBIOLOGY - GENER AL ORDERABLES Performing Organization Address [facility] Phone Number [facility] [address] [place] [address] * (ABNORMAL) ELECTROLYTES (02/09/2008 21:15 EDT) Sodium 127(L) 136 - 145 mEq/L [facility] Potassium 4.1 3.5 - 5.0 mEq/L [facility] Chloride 89(L) 96 - 110 mEq/L [facility] CO2 25 24 - 32 mEq/L [facility] 02/09/2008 21:1 5 EDT 02/09/2008 21:57 EDT Jodi Christie MD CHEMISTRY & BLOOD GA S ORDERABLES Performing Organization Address [facility]/ZIP Co de Phone Number [facility] [address] [place] [address] * (ABNORMAL) UA WITH MICROSCOPIC (02/09/2008 21:15 EDT) Color, UA Straw [facility] Clarity, UA Hazy [facility] Glucose, UA 1+(A) NORM [facility] Bilirubin, UA Neg NEG [facility] Ketones, UA Neg NEG [facility] Specific [place], Urine <1.005(L) 1.005 - 1.02 [facility] Blood, UA Large(A) NEG [facility] pH, UA 7.0 5.0 - 9.0 [facility] Protein, UA Neg NEG [facility] Urobilinogen, UA Norm NORM mg/dL [facility] Nitrite, UA Neg NEG [facility] Leuk Esterase Trace(A) NEG [facility] WBC, UA less than 1 0 - 5 /HPF [facility] RBC, UA less than 1 0 - 5 /HPF [facility] Squam Epithel, UA None seen NS /HPF [facility] Renal Epithel, UA None seen NS /HPF [facility] Bacteria, UA None seen NS /HPF [facility] Crystals, UA Many /HPF [facility] Comment:Amorphous phosphates Hyaline Casts, UA None seen /LPF [facility] Comment Microscopic results are unreliable on urines unrefrig >2hrs or refrig >8hrs. [facility] 02/09/2008 21:1 5 EDT 02/09/2008 22:00 EDT Jodi Christie MD URINALYSIS ORDERABLE S [facility] [address] [place] [address] * (ABNORMAL) ELECTROLYTES (02/09/2008 18:05 EDT) Sodium 122(LL) 136 - 145 mEq/L [facility] Comment:Sample retested, res ult confirmed Potassium 4.2 3.5 - 5.0 mEq/L [facility] Chloride 88(L) 96 - 110 mEq/L [facility] CO2 26 24 - 32 mEq/L [facility] 02/09/2008 18:0 5 EDT 02/09/2008 18:05 EDT Kris Izquierdo MD CHEMISTRY & BLOOD GA S ORDERABLES Performing Organization Address [facility] de Phone Number [facility] [address] [place] [address] * GLUCOSE, GLUCOMETER (02/09/2008 17:59 EDT) Glucose, Fingerstick 98 70 - 100 mg/dl [facility] Rider Ticket Worker ID [id number] Test Performed by Nursing Services [facility] 02/09/2008 17:5 9 EDT 02/09/2008 23:28 EDT oJdi Christie MD CHEMISTRY & BLOOD GA S ORDERABLES Performing Organization Address [facility] Phone Number [facility] [address] [place] [address] * (ABNORMAL) ELECTROLYTES (02/09/2008 16:10 EDT) Sodium 120(LL) 136 - 145 mEq/L [facility] Comment:Sample retested, res ult confirmed Potassium 3.9 3.5 - 5.0 mEq/L [facility] Chloride 86(L) 96 - 110 mEq/L [facility] CO2 26 24 - 32 mEq/L [facility] 02/09/2008 16:1 0 EDT 02/09/2008 16:10 EDT Kris Izquierdo MD CHEMISTRY & BLOOD GA S ORDERABLES Performing Organization Address [facility] de Phone Number [facility] [address] [place] [address] * (ABNORMAL) GLUCOSE, GLUCOMETER (02/09/2008 16:06 EDT) Glucose, Fingerstick 105(H) 70 - 100 mg/dl [facility] Rider Ticket Worker ID [id number] Test Performed by Nursing Services [facility] 02/09/2008 16:0 6 EDT 02/09/2008 23:28 EDT Jodi Christie MD CHEMISTRY & BLOOD GA S ORDERABLES Performing Organization Address [facility] de Phone Number [facility] [address] [place] [address] * (ABNORMAL) ELECTROLYTES (02/09/2008 14:09 EDT) Sodium 121(LL) 136 - 145 mEq/L [facility] Comment:Sample retested, res ult confirmed Potassium 4.6 3.5 - 5.0 mEq/L [facility] Chloride 85(L) 96 - 110 mEq/L [facility] CO2 25 24 - 32 mEq/L [facility] 02/09/2008 14:0 9 EDT 02/09/2008 14:09 EDT Kris Izquierdo MD CHEMISTRY & BLOOD GA S ORDERABLES Performing Organization Address [facility] de Phone Number [facility] [address] [place] [address] * (ABNORMAL) GLUCOSE, GLUCOMETER (02/09/2008 14:01 EDT) Glucose, Fingerstick 104(H) 70 - 100 mg/dl [facility] Rider Ticket Worker ID [id number] Test Performed by Nursing Services [facility] 02/09/2008 14:0 1 EDT 02/09/2008 23:28 EDT Jodi Christie MD CHEMISTRY & BLOOD GA S ORDERABLES Performing Organization Address [facility] Co de Phone Number [facility] [address] [place] [address] * OSMOLALITY, URINE (02/09/2008 13:37 EDT) Osmolality, Ur 406 MOS/KG [facility] 02/09/2008 13:3 7 EDT 02/09/2008 13:37 EDT Kris Izquierdo MD URINALYSIS ORDERABLE S Performing Organization Address [facility]/ZIP Co de Phone Number [facility] [address] [place] [address] * SODIUM, URINE RANDOM (02/09/2008 13:37 EDT) Sodium, Ur 91.0 mEq/L [facility] 02/09/2008 13:3 7 EDT 02/09/2008 13:37 EDT Kris Izquierdo MD URINALYSIS ORDERABLE S Performing Organization Address [facility] Co de Phone Number [facility] [address] [place] [address] * (ABNORMAL) URINALYSIS, CHEMICAL (02/09/2008 13:37 EDT) Color, UA Straw [facility] Clarity, UA Hazy [facility] Glucose, UA Norm NORM [facility] Bilirubin, UA Neg NEG [facility] Ketones, UA Neg NEG [facility] Specific [place], Urine 1.015 1.005 - 1.02 [facility] Blood, UA Mod(A) NEG [facility] pH, UA 7.0 5.0 - 9.0 [facility] Protein, UA Neg NEG [facility] Urobilinogen, UA Norm NORM mg/dL [facility] Nitrite, UA Neg NEG [facility] Leuk Esterase Trace(A) NEG [facility] Comment Small sample, less than 12 ml received. [facility] 02/09/2008 13:3 7 EDT 02/09/2008 13:37 EDT Kris Izquierdo MD URINALYSIS ORDERABLE S Performing Organization Address City/[facility] Co de Phone Number [facility] [address] [place] [address] * URINE MICROSCOPIC (02/09/2008 13:37 EDT) WBC, UA less than 1 0 - 5 /HPF [facility] RBC, UA 5 to 10 0 - 5 /HPF [facility] Squam Epithel, UA None seen NS /HPF [facility] Renal Epithel, UA None seen NS /HPF [facility] Bacteria, UA None seen NS /HPF [facility] Crystals, UA None seen /HPF [facility] Hyaline Casts, UA Rare Hyaline /LPF [facility] Comment Microscopic results are unreliable on urines unrefrig >2hrs or refrig >8hrs. [facility] Mucus, UA Present [facility] Comment Amorphous material present [facility] 02/09/2008 13:3 7 EDT 02/09/2008 13:37 EDT Kris Izquierdo MD URINALYSIS ORDERABLE S Performing Organization Address [facility] Co de Phone Number [facility] [address] [place] [address] * (ABNORMAL) T4 FREE (02/09/2008 12:06 EDT) Free T4 0.6(L) 0.8 - 1.5 ng/dL [facility] 02/09/2008 12:0 6 EDT 02/09/2008 12:06 EDT Kris Izquierdo MD CHEMISTRY & BLOOD GA S ORDERABLES Performing Organization Address [facility] Co de Phone Number [facility] [address] [place] [address] * TESTS ADDED BY PHONE (02/09/2008 12:06 EDT) Tests to be added FT4 [facility] Who Called KAYLI FOR DR TONIE [facility] Location Code M3 [facility] 02/09/2008 12:0 6 EDT 02/09/2008 12:06 EDT Kris Izquierdo MD CHEMISTRY & BLOOD GA S ORDERABLES Performing Organization Address [facility] Co de Phone Number [facility] [address] [place] [address] * (ABNORMAL) ELECTROLYTES (02/09/2008 12:06 EDT) Sodium 120(LL) 136 - 145 mEq/L [facility] Comment:Sample retested, res ult confirmed Potassium 4.4 3.5 - 5.0 mEq/L [facility] Chloride 87(L) 96 - 110 mEq/L [facility] CO2 24 24 - 32 mEq/L [facility] 02/09/2008 12:0 6 EDT 02/09/2008 12:06 EDT Kris Izquierdo MD CHEMISTRY & BLOOD GA S ORDERABLES Performing Organization Address City/[facility] Co de Phone Number [facility] [address] [place] [address] * (ABNORMAL) GLUCOSE, GLUCOMETER (02/09/2008 11:59 EDT) Glucose, Fingerstick 102(H) 70 - 100 mg/dl [facility] Rider Ticket Worker ID [id number] Test Performed by Nursing Services [facility] 02/09/2008 11:5 9 EDT 02/09/2008 23:28 EDT Jodi Christie MD CHEMISTRY & BLOOD GA S ORDERABLES Performing Organization Address City/[facility] Co de Phone Number [facility] [address] [place] [address] * GLUCOSE, GLUCOMETER (02/09/2008 10:09 EDT) Glucose, Fingerstick 82 70 - 100 mg/dl [facility] Rider Ticket Worker ID [id number] Test Performed by Nursing Services [facility] 02/09/2008 10:0 9 EDT 02/09/2008 23:28 EDT Jodi Christie MD CHEMISTRY & BLOOD GA S ORDERABLES Performing Organization Address [facility] Co de Phone Number [facility] [address] [place] [address] * (ABNORMAL) ELECTROLYTES (02/09/2008 9:49 EDT) Sodium 120(LL) 136 - 145 mEq/L [facility] Comment:Sample retested, res ult confirmed Potassium 4.4 3.5 - 5.0 mEq/L [facility] Chloride 85(L) 96 - 110 mEq/L [facility] CO2 25 24 - 32 mEq/L [facility] 02/09/2008 9:49 EDT 02/09/2008 10:20 EDT Kris Izquierdo MD CHEMISTRY & BLOOD GA S ORDERABLES Performing Organization Address [facility] de Phone Number [facility] [address] [place] [address] * (ABNORMAL) ELECTROLYTES (02/09/2008 8:09 EDT) Sodium 119(LL) 136 - 145 mEq/L [facility] Comment:Sample retested, res ult confirmed Potassium 4.0 3.5 - 5.0 mEq/L [facility] Chloride 87(L) 96 - 110 mEq/L [facility] Comment:Sample retested, res ult confirmed CO2 24 24 - 32 mEq/L [facility] 02/09/2008 8:09 EDT 02/09/2008 8:09 EDT Kris Izquierdo MD CHEMISTRY & BLOOD GA S ORDERABLES Performing Organization Address [facility] de Phone Number [facility] [address] [place] [address] * GLUCOSE, GLUCOMETER (02/09/2008 8:08 EDT) Glucose, Fingerstick 85 70 - 100 mg/dl [facility] Rider Ticket Worker ID [id number] Test Performed by Nursing Services [facility] 02/09/2008 8:08 EDT 02/09/2008 23:28 EDT Jodi Christie MD CHEMISTRY & BLOOD GA S ORDERABLES Performing Organization Address [facility] de Phone Number [facility] [address] [place] [address] * (ABNORMAL) BLOOD GAS, G3 ISTAT (02/09/2008 8:08 EDT) pH, i-STAT 7.42 7.35 - 7.45 [facility] pCO2, i-STAT 34(L) 35 - 45 mmHg [facility] pO2, i-STAT 43(L) 85 - 100 mmHg [facility] TCO2, i-STAT 23 mEq/L [facility] O2 Saturation 86 % FLE[facility] Base Deficit 3 [facility]SHAE [facility] Temperature 34.1 C [facility] FIO2 21 [facility] Sample Type VENOUS [facility]IS[facility] crm manager ID [id number] Test Performed by Respiratory [facility] 02/09/2008 8:08 EDT 02/09/2008 8:13 EDT Kris Izquierdo MD CHEMISTRY & BLOOD GA S ORDERABLES Performing Organization Address [facility] Co de Phone Number [facility] [address] [place] [address] * (ABNORMAL) ELECTROLYTES (02/09/2008 6:55 EDT) Sodium 128(L) 136 - 145 mEq/L [facility] Comment:Sample retested, res ult confirmed Potassium 2.1(LL) 3.5 - 5.0 mEq/L [facility] Comment:Sample retested, res ult confirmed Chloride 109 96 - 110 mEq/L [facility] Comment:Sample retested, res ult confirmed CO2 16(L) 24 - 32 mEq/L [facility] Comment:Sample retested, res ult confirmed 02/09/2008 6:55 EDT 02/09/2008 6:58 EDT Kris Izquierdo MD CHEMISTRY & BLOOD GA S ORDERABLES Performing Organization Address [facility] Co de Phone Number [facility] [address] [place] [address] * (ABNORMAL) BLOOD GAS, G3 ISTAT (02/09/2008 5:35 EDT) pH, i-STAT 7.31(L) 7.35 - 7.45 [facility] pCO2, i-STAT 56(H) 35 - 45 mmHg [facility] pO2, i-STAT 26(L) 85 - 100 mmHg [facility] TCO2, i-STAT 30 mEq/L [facility] O2 Saturation 41 % [facility] Base Excess 0 [facility] Sample Type NOT GIVEN [facility] [id number] Test performed by Chemistry [facility] 02/09/2008 5:35 EDT 02/09/2008 5:43 EDT Kris Izquierdo MD CHEMISTRY & BLOOD GA S ORDERABLES Performing Organization Address [facility] Co de Phone Number [facility] [address] [place] [address] * MRSA MOLECULAR DETECTION (02/09/2008 5:18 EDT) Specimen Description Nasal [facility] Result NEGATIVE for Methicillin Resistant Staphylococcus aureus DNA by PCR. [facility] Report Status Final [id number] [facility] 02/09/2008 5:18 EDT 02/09/2008 7:21 EDT Kris Izquierdo MD MICROBIOLOGY - GENER AL ORDERABLES Performing Organization Address [facility] Co de Phone Number [facility] [address] [place] [address] * GLUCOSE, SERUM (02/09/2008 5:15 EDT) Glucose, Serum 76 70 - 100 mg/dl [facility] 02/09/2008 5:15 EDT 02/09/2008 5:22 EDT Kris Izquierdo MD CHEMISTRY & BLOOD GA S ORDERABLES Performing Organization Address [facility] Co de Phone Number [facility] [address] [place] [address] * (ABNORMAL) CREATININE (02/09/2008 5:15 EDT) Creatinine 0.57(L) 0.6 - 1.2 mg/dl [facility] GFR, Calculated Age <18 ml/min/1.7 3m2 [facility] 02/09/2008 5:15 EDT 02/09/2008 5:22 EDT Kris Izquierdo MD CHEMISTRY & BLOOD GA S ORDERABLES Performing Organization Address City/[facility] Co de Phone Number [facility] [address] [place] [address] * (ABNORMAL) BUN (02/09/2008 5:15 EDT) BUN 7(L) 8 - 21 mg/dl [facility] 02/09/2008 5:15 EDT 02/09/2008 5:22 EDT Kris Izquierdo MD CHEMISTRY & BLOOD GA S ORDERABLES Performing Organization Address [facility] Co de Phone Number [facility] [address] [place] [address] * PHOSPHORUS (02/09/2008 5:15 EDT) Phosphorus 3.3 2.7 - 4.7 mg/dl [facility] 02/09/2008 5:15 EDT 02/09/2008 5:22 EDT Kris Izquierdo MD CHEMISTRY & BLOOD GA S ORDERABLES Performing Organization Address City/[facility] Co de Phone Number [facility] [address] [place] [address] * (ABNORMAL) MAGNESIUM (02/09/2008 5:15 EDT) Magnesium 1.6(L) 1.7 - 2.8 mg/dl [facility] 02/09/2008 5:15 EDT 02/09/2008 5:22 EDT Kris Izquierdo MD CHEMISTRY & BLOOD GA S ORDERABLES Performing Organization Address City/[facility] Co de Phone Number [facility] [address] [place] [address] * (ABNORMAL) ELECTROLYTES (02/09/2008 5:15 EDT) Sodium 120(LL) 136 - 145 mEq/L [facility] Comment:Sample retested, res ult confirmed Potassium 4.1 3.5 - 5.0 mEq/L [facility] Chloride 83(L) 96 - 110 mEq/L [facility] CO2 26 24 - 32 mEq/L [facility] 02/09/2008 5:15 EDT 02/09/2008 5:22 EDT Kris Izquierdo MD CHEMISTRY & BLOOD GA S ORDERABLES Performing Organization Address [facility]/ZIP Co de Phone Number [facility] [address] [place] [address] * CULTURE IF UA POSITIVE (02/09/2008 5:15 EDT) Culture if Indicated Culture not indicated by urinalysis results. [facility] 02/09/2008 5:15 EDT 02/09/2008 5:24 EDT Kris Izquierdo MD MICROBIOLOGY - GENER AL ORDERABLES Performing Organization Address [facility] Co de Phone Number [facility] [address] [place] [address] * UA REFLEX (02/09/2008 5:15 EDT) UA Billing Microscopic not indicated. [facility] 02/09/2008 5:15 EDT 02/09/2008 5:24 EDT Kris Izquierdo MD URINALYSIS ORDERABLE S Performing Organization Address City/[facility]/ZIP Co de Phone Number [facility] [address] [place] [address] * (ABNORMAL) URINALYSIS, CHEMICAL (02/09/2008 5:15 EDT) Color, UA Yellow [facility] Clarity, UA Clear [facility] Glucose, UA Norm NORM [facility] Bilirubin, UA Neg NEG [facility] Ketones, UA Neg NEG [facility] Specific [place], Urine >1.030(H) 1.005 - 1.02 [facility] Blood, UA Neg NEG [facility] pH, UA 6.0 5.0 - 9.0 [facility] Protein, UA Neg NEG [facility] Urobilinogen, UA Norm NORM mg/dL [facility] Nitrite, UA Neg NEG [facility] Leuk Esterase Neg NEG [facility] Refractometer SG,Urine 1.015 1.005 - 1.02 [facility] 02/09/2008 5:15 EDT 02/09/2008 5:24 EDT Kris Izquierdo MD URINALYSIS ORDERABLE S Performing Organization Address [facility] Co de Phone Number [facility] [address] [place] [address] * GLUCOSE, GLUCOMETER (02/09/2008 0:01 EDT) Glucose, Fingerstick 96 70 - 100 mg/dl [facility] Rider Ticket Worker ID [id number] Test Performed by Nursing Services [facility] 02/09/2008 0:01 EDT 02/09/2008 19:26 EDT Jodi Christie MD CHEMISTRY & BLOOD GA S ORDERABLES Performing Organization Address [facility] Co de Phone Number [facility] [address] [place] [address] documented in this encounter Visit Diagnoses Not on filedocumented in this encounter
--- OUTSIDE RECORDS SUMMARY | 2024-03-05 15:50 | XMS_ITS | Encounter Summary ---
Author Organization [facility] Address [address] [place] [address] Care Team Providers Care Manager Operations And Procurement Name Role Phone Corin Skinner MD Primary Care Provider [phone] Encounter Details Date Type Department Care Team (Late st Contact Info) Description 02/08/2008 Before PRISM Converted Visit (Maple) [facility] - Maple conversion [address] [place] [address] Rui Bazan MD Social History Tobacco Use Types Packs/Day Years Used Date Smoking Tobacco: Never Assessed Sex and Gender Information Value Date Recorded Sex Assigned at Not on file Gender Identity Not on file Sexual Orientation Not on file documented as of this encounter Consult Notes * Rui Bazan III, MD - 04/03/2009 1408 EDT CONSULTATION - 02/08/2008 NEUROLOGY HEALTH CARE SERVICE - EPILEPSY CLINIC PRESENT ILLNESS Miguel Angel is a 17-year-old boy with multiple problems which include status post surgery for craniopharyngioma, diabetes insipidus, hypopituitarism, developmental delay and blindness who is seen in consultation for Dr. Yan Demarco because of seizures. Miguel Angel underwent surgery at age 14 for a craniopharyngioma. Following the surgery he did have complications, which left him with neurologic residua which I believe included a left hemiparesis and marked visual impairment. He was admitted to the hospital here in November of 2007 because of marked drowsiness and was previouslyfound to have a serum sodium of 123. The sodium was corrected. While he was in the hospital, he hadbehavior which was suspicious for seizures in the emergency room and on the medical floor. The first episode in the emergency room in November was characterized by rolling of the eyes and stiffening of the body which lasted 30 to 45 seconds. Later that day at 3 a.m. he had a series of stiffening of the body and shaking for a total of five to six episodes over 20 minutes. According to his parents his serum sodium at that pointwas normal. Unfortunately, I do not have enough details from the chart to confirm that impression. He did undergo a CT of the head and MRI which apparently showed no change from previous studies. He also had an EEG which revealed slowing which was moreprominent in the temporal regions and greater on the right side. No epileptiform activity was seen. The episode which prompted todays consultation occurred approximately nine days ago. The night before the family had gone out for [employer] food. He had had his medications at the usual time at 4:30 p.m. While at the [employer] Restaurant the family stated that his body jerked approximately five times. They were generalized brief clonic jerks. While in the restaurant he did not wish to eat. The following morning his father gave him his medications at around 6 a.m. He then had a generalized tonic-clonic seizure which lasted approximately 60 to 90 seconds. The seizureended by the time he reached the emergency room. We were able to obtain the results of lab work in the emergency room. Hehad a serum sodium of 135, potassium 3.7, CO2 was 27 and chloride was 91. Blood glucose was 89, BUNwas 8, and creatinine was 1.1. He had a white count of 4,400 with a hemoglobin of 14.9 and hematocrit of 46. He was given 300 mg of Dilantin orally according to the family. By the time he got home that evening he was given an additional 100 mg of Dilantin and had been placed on a schedule of 100 mgthree times a day. The family states that he was a little drowsy after leaving the emergency room but was quite responsive and close to his usual self. However, after approximately 24 hours he has been lethargic and sleeping all the time and this state of affairs has continued to the present. He has stayed on the Dilantin 100 mg three times a day. He has not had a Dilantin level checked since he was seen in the emergency room. SOCIAL HISTORY He lives at home with his father and stepmother. The stepmother and the stepmothers sister provide care for him. REVIEW OF SYSTEMS The patient is on multiple medications. 1. Seroquel 600 mg at night and 200 mg as needed. 2. Desmopressin 0.1 mg three times a day. 3. levothyroxine 150 micrograms daily. 4. calcium with vitamin D 600 mg daily. 5. Dilantin 100 mg three times a day. 6. testosterone 200 mg injections every 21 days. 7. niacin 100 mg three times a day. 8. sertraline 200 mg at bedtime. 9. hydrocortisone, I believe 10 mg in the morning, 5 mg at midday and 5 mg at night but the dose isincreased when he is ill. 10. temazepam 15 mg at bedtime which is a benzodiazepine. The family states that he has had no cardiac, pulmonary, intestinal or renal problems. He is said to be allergic to Lopid. He has a rash which is attributed to the niacin. His hearing seems normal.He has had no signs of arthritis. He has had no recent fever or signs of infectious illness. FAMILY HISTORY There is a family history of diabetes mellitus. His biologic mother in her 40s of renal disease said to be secondary to the diabetes. There is no family history of epilepsy. EXAMINATION Because of his somnolent condition and heavy body size, he could not be weighed today but he is stated to weight 189 pounds. His height is said to be 5 feet 11 inches. His blood pressure is 98/66, pulse 64 and respirations 20. Miguel Angel was responsive enough so that when I asked him if he had a headache or anything hurt heshook his head no. He was able to do some simple addition and subtraction in his head. When I asked him the season of year he finally did say summer. He was extremely somnolent but was arousable so that his parents could give him a drink of water. Hispupils were approximately 2 mm. They did not constrict to light. I was able to visualize both optic discs and the margins were sharp and the optic discs do look pale. When he smiles the right side of his face moves more rapidly than the left side. I could not check any further cranial nerve function other than his hearing seems grossly intact. On motor examination he does have hyperreflexia on the left side as compared to the right side and he has a left Babinski reflex. The right plantar reflex was down going. I noted no involuntary movements. Sensation, because of his drowsy state, could not be checked. ASSESSMENT 1. Seizure disorder, etiology uncertain. It could be related to the cerebral injury or possibly secondary to a metabolic disturbance. 2. Status post surgery for craniopharyngioma. 3. Diabetes insipidus. 4. Stupor, etiology uncertain. Possible Dilantin toxicity, but R/O other metabolic etiologies. PLAN I shall obtain a serum Dilantin level tonight plus electrolytes, CBC, creatinine, liver functions and blood glucose. I recommended to the parents that they hold this eveningdose of Dilantin and tomorrow mornings dose. We should have the result of the Dilantin level by tomorrow morning and ascertainwhether his somnolence is secondary to an excessive blood level of Dilantin. He may need a repeat EEG in the future and possibly further work up if the Dilantin level is not excessive. Signed by Rui Bazan III, MD 02/10/2008 15:32 Rui Bazan III, MD - Rui Bazan III, MD - CHRISSY Job ID: [id number] Doc ID: [id number] cc: Yan Demarco MD documented in this encounter Plan of Treatment Upcoming Encounters Date Type Department Care Team (Late st Contact Info) Description 09/09/2024 10:20 EST Office Visit [facility] Endocrinology - [address] [address] Day Littlejohn MD PhD [address] [place] [address] [place] [id number] documented as of this encounter Visit Diagnoses Not on filedocumented in this encounter Care Teams Manager Operations And Procurement Relationship Specialty Start Date End Date Corin Skinner MD [address] [place] [address] [phone] PCP - General 10/24/08 08/21/09 documented as of this encounter
--- OUTSIDE RECORDS SUMMARY | 2024-03-05 15:50 | XMS_ITS | Encounter Summary ---
Author Organization [facility] Address [address] [place] [address] Care Team Providers Care Drill Sergeant Name Role Phone Unavailable Primary Care Provider Unavailabl e Encounter Details Date Type Department Care Team (Late st Contact Info) Description 04/11/2008 14:00 EDT - 04/13/2008 11:59 EDT Hospital Encounter [facility] [address] [place] [address] Skyler Valencia MD [facility], [address] [phone] Christopher Ga MD [address] [place] [phone] Discharge Disposition: Home-Health Care Svc Social History Tobacco Use Types Packs/Day Years Used Date Smoking Tobacco: Never Assessed Sex and Gender Information Value Date Recorded Sex Assigned at Not on file Gender Identity Not on file Sexual Orientation Not on file documented as of this encounter Discharge Summaries * Yan Khan MD, - 01/17/20092037 EDT HISS DISCHARGE SUMMARY ADDRESS: [address] [facility] [facility] [address] PHONE: [phone] ATTENDING PHYSICIAN: SKYLER VALENCIA MD ADDRESS: [place] [address] [address] [place] [address] PHONE: [phone] REFERRING PHYSICIAN: JOSEY SKINNER MD ADDRESS: [place] [address] PHONE: [phone] ADMISSION DATE: 04/11/08 SERVICE: PED. MEDICINE TRANSFER TO : DISCHARGE DATE: 04/13/08 SERVICE: PED. MEDICINE CHIEF COMPLAINT / REASON FOR ADMISSION: seizure PRINCIPAL/FINAL DIAGNOSIS: Seizure COMPLICATIONS/CO-MORBID CONDTITIONS: Panhypopitutarism Central diabetes insipitus Adrenal isufficiency Hypothyroidism Cortical blindness Developmental delay CONDITION AT DISCHARGE: Stable Improved DISPOSITION AT DISCHARGE: Home with home health services - Nursing, PT, OT, QUARRYMAN ALLERGIES: The following allergies were reported by [...] the dose changed. Review doses carefully. 01) DOCUSATE / (colace) 10MG SYRINGE, ONCE A DAY, BY MOUTH 02) HYDROCORTISONE / (cortef) 30MG TABLET, ONCE A DAY, BY MOUTH Continue to take stress doses of 30 mg in AM, 10 mg in mid-day, 10 mg in PM) for 2 more days, then resume 10 mg, 5 mg, 5 mg dosing. 03) LEVOTHYROXINE SODIUM / (levothroid) 200MCG TABLET, ONCE A DAY, BY MOUTH 04) MODAFINIL / (provigil) 100MG TABLET, ONCE A DAY, BY MOUTH 05) QUETIAPINE / (seroquel) 200MG TABLET, ONCE A DAY, BY MOUTH 06) TEMAZEPAM / (restoril) 15MG CAPSULE, AT BED-TIME (ONCE A DAY), BY MOUTH 07) CHOLECALCIFEROL / (vitamin d) 400UNITS TABLET, TWICE A DAY, BY MOUTH 08) DESMOPRESSIN ACETATE NASAL / (ddavp nasal) 10MCG SOLUTION, TWICE A DAY, IN NOSE 09) HYDROCORTISONE / (cortef) 15MG TABLET, TWICE A DAY, BY MOUTH See additional instructions listed under the 30 mg hydrocortisone e ntry. 10) LEVETIRACETAM / (keppra) 300MG SOLUTION, TWICE A DAY, BY MOUTH This is a new medication. QUANTITY: QS REFILLS: 011 MEDICATIONS YOU WERE TAKING PRIOR TO ADMISSION THAT SHOULD BE STOPPED: NONE HERBAL REMEDIES, NUTRITIONAL SUPPLEMENTS, AND TTMD-TQO-LOASXRK MEDICATIONS that have not been prescribed by a physician may have significant adverse side effect or may interfere with the medications that have been prescribed for you. If you are taking herbal remedies, nutritional supplements, or qtmk-fmc-cvzzsnb medications you are strongly encouraged to discontinue their use until you have discussed your use of these products with your primary care physician. UPON ADMISSION YOU LISTED THE FOLLOWING HERBAL/SUPPLEMENTS/OTC: NONE HOSPITAL COURSE: Miguel Angel is a 17-year-old male s/p resection of a craniopharyngioma, comorbid conditions include panhypopituitarism, central DI, adrenal insufficiency, cortical blindness, developmental delay. He was at his baseline state of health when he had a generalized seizure lasting about 30s. He was taken to [facility] and was hypotensive and hypothermic. His vitals improved after he was bolused and given 100mg of Solucortef IV. He was also given IM ceftriaxone x1. Transferred to [facility]. 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 His seizure threashold was most likely lowered by a viral infection, disurbed sleep pattern, or other unknown entity. Started Keppra per Neuro recommendations. He has an appt to see a neurologist at [facility] in May. Disturbed sleep and and apparent dysasthesia suspected prior to admission were identified as additional concerns to be addressed at Neurology follow-up. Endocrine - Panhypopituitarism: Recieved stress dose steroids and will continue for 2 days after discharge. Central DI: I/Os and serum Na followed during course. He was fluid restricted to 80oz/day on admission. He was started on his home dose of DDAVP. It became apparent that his sodium was decreasing (131-->129) and it was discovered that a inadvertantly high dose of nasal DDAVP was being given (150mcg BID instead of 10mcg). In reponse to this discovery, DDAVP was held on 04/12 and he was completely fluid restricted until the next morning when his Na+ had increased to 140. At that point the DDAVP and home fluid restriction of 82oz/day were reintroduced. Recommend rechecking lytes as an outpatient 04/14. Nutrition: the manufacturing job titles were consulted regarding Miguel Angel's very restrictive calorie restriction and recommended a new diet plan of 1800 kcal/day and 75g protien. They are happy to see Miguel Angel with his parents as an outpatient at [facility] as they were unable to meet with his parents during this admission Heme: Mild pancytopenia of unknown etiology. Transient bone marrow suppression associated with recent viral illness is suspected. Seroquel noted in 2% to be associated with leukopenia. Recommend rechecking CBC as an outpatient in about a week. Contact dermatitis vs. abrasion: On the day of discharge, a confluent macerated rash was identified at the site of the peripheral IV adhesive (right upper extremity). It is unclear whether this represents local superficial trauma or hypersentivity. Recommend close observation with any future adhesive tape exposure. DIET: Recommend zurdo restricted diet of 1800 zurdo/day and 75g protien Continue fluid restriction 62oz/day not inlcuding calories ACTIVITY: No restrictions on activity HOME CARE SKILLED SERVICES: Registered Nurse Referral SYMPTOMS TO CALL YOUR DOCTOR ABOUT: Seizure Difficulty breathing Breathing fast Change in mental status FOLLOW UP APPOINTMENTS: Follow up with your new neurologist at [facility] Follow up with Dr. King in [place], endocrinology Follow up with Dr. Skinner at 3:30PM HOME HEALTH CARE REFERRAL SERVICES: Previously followed by: [facility] __ Initial call by: _Jazz Bush on 04/12/08_@ __:__ Spoke with: _Gay in intake [phone] fax [phone] The primary care physician has been notified of the home health referral and has given verbal permission for all orders and/or clarifications pursuant to this referral to be managed by the primary care physician's office. Marta Pisano (Yard Pipe Grader) to follow as outpt through [place] office cc: Patient chart MD JOSEY SCHMITZ MD Dr. Larrow at [phone] Pediatric Neurology at [facility] END OF REPORT D: YAN KHAN MD P - ZOHDocument ID: [id number] documented in this encounter Discharge Disposition Disposition Code Departure Means Destination Home-Health Care Svc documented in this encounter Consult Notes * Lc Cheng MD - 04/11/2008 0000 EDT INPATIENT CONSULTATION Admission Date: 04/11/2008 Date of consultation: 04/11/2008 Requesting physician: Skyler Valencia MD. This is a 17with re-presentation with seizure late last night. He has been seen and evaluated and Isaw him as a consult in early February with change in mental status. This in the context of remote left hemiparesis, blindness related to craniopharyngioma and surgical treatment years ago. He had returned to his baseline unaccountably. Father voiced some frustration with the care they received at [facility] but apparently had made a spontaneous recovery. Hehad been on Keppra on transfer there but this was discontinued and I reviewed their discharge note and there was no particular rationale given for discontinuing it, however, I suspect that the rationale was that his seizures were acutely symptomatic of metabolic changes and therefore was no longer warranted. In the past, he has had ill reaction to phenytoin. He has been on no other seizure medications to my knowledge. Father heard sounds and gave an account of a generalized tonic-clonic seizure with upgaze. This was actually I believe may have been witnessed by the stepmother late last night and he was eventually transferred to our hospital emergency room. The seizure lasted about two or three minutes. Heis somnolent but showing some signs of making a recovery and again I note that he made a full recovery behaviorally since his early February admission here and at [facility]. There was no fever but he was found to be hypothermic with a temperature in the near 90s on admission here. There were no other changes in his usual medications that are outlined in his admission note here. These include p.r.n. temazolam. 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 suggested restarting the Keppra. As we see him return to his baseline in terms of his normothermia and continue to monitor his electrolytes (his sodium was 133), I expect he will continue to make a full recovery.I believe he in effect or in essence has seizures symptomatic of a remote cerebral injury related to his tumor and its treatment several years ago and should continue to be carried on seizure medication. In terms of interaction with other medications andhis neurological status and metabolic disease (diabetes insipidus), Keppra seems a good solution and there is no other particular reason or adverse effect of Keppra from his earlier experience with this voiced by his parent or from the records to preclude its use here. We will start him back at the previous dose of 300 mg twice daily and will continue to follow. Because of disappointments in our care voiced by the parents before, I wanted to clarify again whether father wanted to continue his care here because geographically there are some advantages for thefamily. I said I would be happy to assume his care as subspecialist and father was in accordance with that but I subsequently learned that there is a follow-up appointment at [facility] Neurology and perhaps that will be the followup. Let me know your thoughts about this. spent over half of a 25-minute visit in coordination of care, including review of testing, symptom management, and plans/contingencies for followup as outlined above. I appreciate the chance to see Miguel Angel Burgos and hope the above is helpful. Sincerely, Signed by Lc Cheng MD 04/13/2008 12:33 Lc Cheng MD D: - Lc Cheng MD P - Job ID: [id number] Document ID: [id number] cc: MD Yan Walker MD Paul Rosenau, MD documented in this encounter Plan of Treatment Upcoming Encounters Date Type Department Care Team (Late st Contact Info) Description 09/09/2024 10:20 EST Office Visit [facility] Endocrinology - [address] [address] Day Littlejohn MD PhD [address] [facility] [address] [place] [address] documented as of this encounter Procedures Procedure Name Priority Date/Time Associated Diagnosis Comments ELECTROLYTES Routine 04/13/2008 6:47 EDT ELECTROLYTES Routine 04/12/2008 18:38 EDT COMPLETE BLOOD COUNT AND DIFFERENTIAL Routine 04/12/2008 10:29 EDT BUN Routine 04/12/2008 10:29 EDT CREATININE Routine 04/12/2008 10:29 EDT ELECTROLYTES Routine 04/12/2008 10:29 EDT BUN Routine 04/11/2008 16:00 EDT CREATININE Routine 04/11/2008 16:00 EDT ELECTROLYTES Routine 04/11/2008 16:00 EDT documented in this encounter Results * (ABNORMAL) ELECTROLYTES (04/13/2008 6:47 EDT) Sodium 140 136 - 145 mEq/L [facility] Comment: Slight hemolysis Heparinized plasma. Sample retested, result confirmed Potassium 6.1(HH) 3.5 - 5.0 mEq/L [facility] Comment: Hemolysis may elevate potassium result. Slight hemolysis Heparinized plasma. Sample retested, result confirmed Chloride 106 96 - 110 mEq/L [facility] Comment: Slight hemolysis Heparinized plasma. CO2 21(L) 24 - 32 mEq/L [facility] Comment: Slight hemolysis Heparinized plasma. 04/13/2008 6:47 EDT 04/13/2008 6:49 EDT Skyler Valencia MD MSc CHEMISTRY & B LOOD GAS ORDERABLES [facility] [address] [place] [address] * (ABNORMAL) ELECTROLYTES (04/12/2008 18:38 EDT) Sodium 130(L) 136 - 145 mEq/L [facility] Comment:Slight hemolysis Potassium 6.5(HH) 3.5 - 5.0 mEq/L [facility] Comment: Hemolysis may elevate potassium result. Slight hemolysis Sample retested, result confirmed Chloride 96 96 - 110 mEq/L [facility] Comment:Slight hemolysis CO2 18(L) 24 - 32 mEq/L [facility] Comment:Slight hemolysis 04/12/2008 18:3 8 EDT 04/12/2008 18:53 EDT Skyler Valencia MD MSc CHEMISTRY & B LOOD GAS ORDERABLES Performing Organization Address [facility] de Phone Number [facility] [address] [place] [address] * CREATININE (04/12/2008 10:29 EDT) Creatinine 0.60 0.6 - 1.2 mg/dl [facility] GFR, Calculated Age <18 ml/min/1.7 3m2 [facility] 04/12/2008 10:2 9 EDT 04/12/2008 10:30 EDT Skyler Valencia MD MSc CHEMISTRY & B LOOD GAS ORDERABLES Performing Organization Address [facility] de Phone Number [facility] [address] [place] [address] * BUN (04/12/2008 10:29 EDT) BUN 13 8 - 21 mg/dl [facility] 04/12/2008 10:2 9 EDT 04/12/2008 10:30 EDT Skyler Valencia MD MSc CHEMISTRY & B LOOD GAS ORDERABLES Performing Organization Address [facility] de Phone Number [facility] [address] [place] [address] * (ABNORMAL) ELECTROLYTES (04/12/2008 10:29 EDT) Pathologist [facility] Sodium 129(L) 136 - 145 mEq/L [facility] Potassium 3.9 3.5 - 5.0 mEq/L [facility] Chloride 94(L) 96 - 110 mEq/L [facility] CO2 25 24 - 32 mEq/L [facility] 04/12/2008 10:2 9 EDT 04/12/2008 10:30 EDT Skyler Valencia MD MSc CHEMISTRY & B LOOD GAS ORDERABLES [facility] [address] [place] [address] * (ABNORMAL) HEMAGRAM AND DIFFERENTIAL (04/12/2008 10:29 EDT) Pathologist [facility] WBC 3.12(L) 4.6 - 11.2 K/cmm [facility] RBC 4.23(L) 4.50 - 5.30 M/cmm [facility] Hemoglobin 11.0(L) 13.0 - 16.0 gm/dl [facility] HCT 32.5(L) 37.0 - 49.0 % [facility] MCV 77(L) 78 - 98 fl [facility] MCH 26.0 pg [facility] MCHC 33.8 gm/dl [facility] PLT 119(L) 156 - 312 K/cmm [facility] RDW-CV 16.7 % [facility] Neutrophils 28.0 % [facility] % Bands 1.0 % [facility] Lymphocytes 55.0 % [facility] Monocytes 15.0 % [facility] Eosinophils 1.0 % [facility] ABS Neutrophils 0.87 K/cmm [facility] Bands 0.03 K/cmm [facility] ABS Lymphs 1.72 K/cmm [facility] ABS Monocytes 0.47 K/cmm [facility] ABS Eosinophils 0.03 K/cmm [facility] RBC Morphology 1+ Anisocytosis 1+ Microcytes [facility] Type of Diff: Manual [facility] 04/12/2008 10:2 9 EDT 04/12/2008 10:30 EDT Skyler Valencia MD MSc PACKAGES & DN A PROBE ORDERABLES Performing Organization Address [facility] de Phone Number [facility] [address] [place] [address] * CREATININE (04/11/2008 16:00 EDT) Creatinine 0.81 0.6 - 1.2 mg/dl [facility] GFR, Calculated Age <18 ml/min/1.7 3m2 [facility] 04/11/2008 16:0 0 EDT 04/11/2008 17:27 EDT Skyler Valencia MD MSc CHEMISTRY & B LOOD GAS ORDERABLES Performing Organization Address [facility] de Phone Number [facility] [address] [place] [address] * BUN (04/11/2008 16:00 EDT) BUN 17 8 - 21 mg/dl [facility] 04/11/2008 16:0 0 EDT 04/11/2008 17:27 EDT Skyler Valencia MD MSc CHEMISTRY & B LOOD GAS ORDERABLES Performing Organization Address [facility] de Phone Number [facility] [address] [place] [address] * (ABNORMAL) ELECTROLYTES (04/11/2008 16:00 EDT) Sodium 130(L) 136 - 145 mEq/L [facility] Potassium 4.1 3.5 - 5.0 mEq/L [facility] Chloride 95(L) 96 - 110 mEq/L [facility] CO2 23(L) 24 - 32 mEq/L [facility] 04/11/2008 16:0 0 EDT 04/11/2008 17:27 EDT Skyler Valencia MD MSc CHEMISTRY & B LOOD GAS ORDERABLES Performing Organization Address City/State/[facility] Co de Phone Number [facility] [address] [place] [address] documented in this encounter Visit Diagnoses Not on filedocumented in this encounter
--- OUTSIDE RECORDS SUMMARY | 2024-03-05 15:50 | XMS_ITS | Encounter Summary ---
Author Organization [facility] Address [address] [place] [address] Care Team Providers Care Green Feed Attendant Name Role Phone Corin Skinner MD Primary Care Provider [phone] Encounter Details Date Type Department Care Team (Late st Contact Info) Description 02/11/2008 Before PRISM Converted Visit (Maple) [facility] - [facility] conversion [address] [place] [address] Jose Lopez MD PhD [address] [facility] [place] [phone] Social History Tobacco Use Types Packs/Day Years Used Date Smoking Tobacco: Never Assessed Sex and Gender Information Value Date Recorded Sex Assigned at Not on file Gender Identity Not on file Sexual Orientation Not on file documented as of this encounter Procedure Notes * Jose Lopez MD - 04/07/2009 1210 EDT NEUROPHYSIOLOGY LABORATORY ELECTROENCEPHALOGRAM REPORT SERVICE DATE: 02/11/2008 STUDY NUMBER: Inpatient EEG 795 of 2007 REFERRING PROVIDER: Lc Cheng MD CLINICAL HISTORY A 17male with craniopharyngioma in 2004, tonic clonic seizure two weeks ago, currently having unresponsive episodes lasting a few minutes at a time, some lip smacking, and a question of seizures. Thepatient has a number of intracerebral problems. MEDICATIONS Seroquel, Zoloft, temazepam, Lamictal, hydrocortisone, and Keppra. TECHNICAL DESCRIPTION standard digital EEG is performed utilizing the International 10-20 system of electrode placement and a CPZ reference electrode, with anterior temporal electrodes for enhanced coverage in those areas. The study is performed under the supervision of a registered EEG Technologists. No pain assessmentfor this procedure is necessary. The study is 20 minutes in duration. FINDINGS 1. When the eyes are opened or closed, there is irregular delta activity in the 0.5 to 1.5 Hz rangeat 100 microvolts. This is most common in the right temporal, but occasionally is predominantly right parietal. In the left temporal region, there is 6 cycle per second activity at less than 100 microvolts. 2. When the patient is maximally alert and interacting with the Dad, there is less persistent deltaactivity. During a period of lip smacking, the electroencephalogram showed increased EMG activity, but no other change. EEG SUMMARY This electroencephalogram is slow, slower on the right and very similar to one acquired on November 28, 2007, only perhaps a little slower. Again, no interictal epileptiform activity is seen. Signed by Jose Lopez MD,PHD 02/12/2008 13:46 Jose Lopez MD,PHD ABPN Certified in Neurology [place] [employer] Clinical Neurophysiology - Jose Lopez MD,PHD P - LBR Job ID: [id number] Document ID: [id number] cc: MD Yan Walker MD lbr Job ID: [id number] Document ID: [id number] cc: MD Yan Walker MD documented in this encounter Plan of Treatment Upcoming Encounters Date Type Department Care Team (Late st Contact Info) Description 09/09/2024 10:20 EST Office Visit [facility] Endocrinology - [address] [address] Day Littlejohn MD PhD [address] [place] [address] [address] [place] [address] documented as of this encounter Visit Diagnoses Not on filedocumented in this encounter Care Teams Green Feed Attendant Relationship Specialty Start Date End Date Corin Skinner MD [address] [place] [phone] PCP - General 10/24/08 08/21/09 documented as of this encounter
--- OUTSIDE RECORDS SUMMARY | 2024-03-05 15:50 | XMS_ITS | Encounter Summary ---
Author Organization [facility] Address [address] [place] [address] Care Team Providers Care Elevator Constructor Electric Name Role Phone Unavailable Primary Care Provider Unavailabl e Encounter Details Date Type Department Care Team (Late st Contact Info) Description 05/08/2008 5:55 EST - 06/01/2008 11:59 EST Hospital Encounter [facility] [address] [place] [address] Millicent Garcia MD [address] [place] [id number] Jose Alejandro Castro MD Discharge Disposition: Home-Health Care Svc Social History Tobacco Use Types Packs/Day Years Used Date Smoking Tobacco: Never Assessed Sex and Gender Information Value Date Recorded Sex Assigned at Not on file Gender Identity Not on file Sexual Orientation Not on file documented as of this encounter Discharge Summaries * Anatoliy Choudhury MD - 01/15/2009 0552 EDT [facility] DISCHARGE SUMMARY ADDRESS: [address] [place] [id number] PHONE: [phone] ATTENDING PHYSICIAN: MILLICENT GARCIA MD ADDRESS: [facility] [address] [place] [address] PHONE: [phone] REFERRING PHYSICIAN: ALANA MARTINEZ MD ADDRESS: [facility] [address] [place] [address] PHONE: [phone] ADMISSION DATE: 05/08/08 SERVICE: PED. MEDICINE TRANSFER TO IP: DISCHARGE DATE: 06/01/08 SERVICE: PED. MEDICINE CHIEF COMPLAINT / REASON FOR ADMISSION: Respiratory distress PRINCIPAL/FINAL DIAGNOSIS: RLL PNA SECONDARY/FINAL DIAGNOSIS: Central diabetes insipidus Developmental delay Cortical blindness Seizures Panhypopituitarism Left hemiparesis PRINCIPAL PROCEDURE: PICC line placement CONDITION AT DISCHARGE: Stable Improved DISPOSITION AT DISCHARGE: Home with home health services - Speech, PT, OT, FOREIGN SERVICE OFFICER-resume previous ALLERGIES: The following allergies were reported by [...] ONCE A DAY, BY MOUTH 05) MULTIVITAMIN CHEW + MINERALS / (flintstones complete) ONETABLET CHEWABLE TABLET, ONCE A DAY, BY MOUTH 06) QUETIAPINE / (seroquel) 400MG TABLET, EVERY AFTERNOON, BY MOUTH 07) TEMAZEPAM / (restoril) 15MG CAPSULE, EVERY AFTERNOON, BY MOUTH 08) DESMOPRESSIN ACETATE / (desmopressin injection) 0.4MCG INJECTION, TWICE A DAY, SUBCUTANEOUSLY 09) HYDROCORTISONE / (cortef) 5MG TABLET, TWICE A DAY, BY MOUTH 10) RANITIDINE / (zantac) 150MG TABLET, TWICE A DAY, BY MOUTH 11) POTASSIUM CHLORIDE / (k-shivani) 20MEQ POWDER, 3 TIMES A DAY, BY MOUTH MEDICATIONS YOU WERE TAKING PRIOR TO ADMISSION THAT SHOULD BE STOPPED: NONE HERBAL REMEDIES, NUTRITIONAL SUPPLEMENTS, AND WRGG-EIP-ANIKUJE MEDICATIONS that have not been prescribed by a physician may have significant adverse side effect or may interfere with the medications that have been prescribed for you. If you are taking herbal remedies, nutritional supplements, or ktyz-khh-ordpotk medications you are strongly encouraged to discontinue their use until you have discussed your use of these products with your primary care physician. 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 He has cortical blindness, left hemiparesis, developmental delay, seizures, panhypopituitarism, and central diabetes insipidus. Miguel Angel presented to the PICU in respiratory failure, shock, and multi-organ failure on 05/08/08 and remained in the PICU until 05/28/08. His PICU course was extended secondary to his diabetes insipidus. Please see PICU transfer summary for details. His hospital course on is as follows by system: FEN - Patient received a regular diet and was fluid restricted to 1200ml po fluids daily. This was divided into 400ml with each meal (TID). GI - Patient was continued on ranitidine for history of aspiration. Resp - Patient was stable from a respiratory standpoint. CV - Patient had a history of dysautonomia in the PICU consisting of intermittent hypertension, hypotension, bradycardia, hypothermia, and diffuse flushing. While he exhibited these signs to a mild degree he was stable from a hemodynamic standpoint on the floor. Central DI - Patient is continuing his DDAVP 0.4micrograms SQ at 0700 and 1900. He will have follow up electrolytes daily. TSH deficiency - Patient continued his Levothyroxine at 200mcg po qday. This was increased from his previous dose. His free T4 will be rechecked 06/06/08. ACTH deficiency - Patient was maintained on carefully weaned stress dose hydrocortisone. He will be discharged on Cortef 10mg PO QAM, 5mg PO Q afternoon, 5mg PO QPM. LH/FSH deficiency - Patient received a testosterone enanthate injection 200mg on 05/30/08. Neuro - Patient was transitioned from [facility] to [facility] secondary to increased somnolence and ataxia on the former. He tolerated this well. He continued his Seroquel, and Temazepam, and his Modafinil was increased to treat his daytime somnolence. Dispo - A care conference took place 05/30/08 involving all members of patient's medical team. All pertinent prescriptions were filled and necessary equipment acquired in preparation for transition of care to home setting. Parents received training in pertinent aspects of patient's care. He was discharged home in improved condition on 06/01/08. DIET: Regular diet Fluid restricted to 500cc 3 times per day (1500cc total) (Note: this is an increase upon discharge) ACTIVITY: Activity only with assistance SKIN/WOUND CARE: Other: PICC line dressing changes q week SHOWERING AND BATHING: Cover cental line and caps prior to showering Do NOT submerge central line HOME CARE SKILLED SERVICES: Registered Nurse Referral-Daily lab draw, wt q day, thyroid function test Physical Therapy Referral Occupational Therapy *ADL training, bathroom equipment assessment. SYMPTOMS TO CALL YOUR DOCTOR ABOUT: Temperature greater than 100.4 degrees Difficulty breathing Breathing fast Change in mental status Large volumes of urine output SPECIAL INSTRUCTIONS: - Free T4 to be drawn on 06/06/08. - Electrolytes drawn daily through PICC, starting 06/02. Send results to Dr. Demarco or on-call MD for [facility]. If Na < 132 or Na > 142, or if K+ < 3.8, page Dr. NAVI Edwards (even if not monogram and letter paster). - Check weight daily. If > 1kg difference from previous wgt, call Dr. Edwards FOLLOW UP APPOINTMENTS: Appointment with Dr. Cheng as needed. Appointment with Dr. Edwards in one month. He will be in phone contact. Appointment with Dr. Demarco in about 1 week. He will be in phone contact. VITAL SIGNS AT DISCHARGE: Weight on discharge 73.2 kg on 05/31 HOME HEALTH CARE REFERRAL SERVICES: N/A _ completed _ called _ faxed _ offered/declined _ Previously followed by: [facility] Initial call by: Luh Simpson RN ____ on @ __:__ fax : [phone] Day of discharge referral call by: on __/__/__ @ __:__ Spoke with: / Agency: Date/time of first visit needed: __/__/__ @ __:__ Discharged on __/__/__ @ __:__ with: To address: Phone: director of player personnel: Phone: Relationship: HOME INFUSION: IV Access Solo Power PICC Type Valved Catheter Date inserted 05/18/08 Last flushed Last drsg change 05/28/08 (external length 8cm) In-hospital teaching RE: Line care VENDOR [facility] OUTPT Pharmacy PATIENT/FAMILY EDUCATION: Central Line Care PATIENT/FAMILY EDUCATION: Subcutaneous Injection cc: MD Dr. NAVI CASTILLO (Pedi Endo) Dr. Demarco (PCP) ADDENDUM: Additional medication: zonisamide (Zonegran) 50mg PO daily (for seizures) END OF REPORT D: ANATOLIY CHOUDHURY MD P - ZOHDocument ID: [id number] documented in this encounter Discharge Disposition Disposition Code Departure Means Destination Home-Health Care c documented in this encounter Progress Notes * Zain Hdz MD - 05/28/2008 0000 EST INTRAFACILITY TRANSFER SUMMARY ADMIT DATE: 05/08/2008 TRANSFER DATE: 05/28/2008 Attending physician at time of transfer: Alanna Neil MD Accepting physician at time of transfer: Jodi Parr MD ADMISSION DIAGNOSIS Respiratory failure. TRANSFER DIAGNOSIS Respiratory failure and shock secondary to right lower lobe pneumonia. HISTORY OF PRESENT ILLNESS Miguel Angel is a 17-year-old young man with a complicated past medical history as below, who was transported from [place] with respiratory failure and pneumonia in the setting of two weeks of cough and congestion. At 0200 on the morning of admission, his stepmom noted his respiratory distress had acutely worsened and he was transported by EMS to [place]. There, he required bag mask ventilation, intubation and mechanical ventilation. He [facility] with pressors and inotropes and several days of mechanical ventilation. After he stabilized from a cardiovascular and respiratory standpoint, he went on to have an extended PICU stay secondary to his central diabetes insipidus. PAST MEDICAL HISTORY 1. Craniopharyngioma status post resection in 2004, complicated by intracranial hemorrhage. 2. Central diabetes insipidus. 3. Panhypopituitarism. 4. Cortical blindness. 5. Neurologic impairment. 6. Developmental delay. 7. Left hemiparesis. 8. History of seizures. 9. Hypertriglyceridemia. HOSPITAL COURSE BY SYSTEM 1. Fluids, electrolytes and nutrition. During hishospitalization, Miguel Angel initially received crystalloid as needed to maintain perfusion and was slowly transitioned to maintenance IV fluids with careful urine output replacement secondary to his central diabetes insipidus and intermittent hypoglycemia, Miguel Angel required hypertonic saline on several occasions to normalize his serum sodium. At the time of transfer from the PICU, Miguel Angel was stable on a fluid restriction of 1200 mL of p.o. fluid per day. During this admission, there was some concern for dysphagia.Initially after being extubated, Miguel Angel was not tolerating p.o. of any consistency and ECHO VASCULAR TECH was consulted on May 12, 2008. Bedside testing revealed overt signs of aspiration of thin and thick liquids. Retesting on May 16, 2008, showed that Miguel Angel atthat time was able to tolerate all consistencies. He is currently on a regular diet with a 1600 zurdo/day restriction. Secondary to his craniopharyngioma, he has poor regulation of his satiety. His parents had been restricting him to 9044-5130 zurdo/day to maintain a weight of 160-170#. He also developed hypokalemia, likely secondary to his acute kidney injury. He was initially requiring IV supplementation and this was transitioned to oral. He was transferred to the floor on 20mEq oral KCl Q8 (60mEq/day total) to keep his potassium level above 3.8. 2. Gastrointestinal. On presentation, Miguel Angel had elevated transaminases, likely secondary to hypoperfusion of his liver. This resolved quickly and remained stable throughout his hospitalization. He did receive ranitidine for stress ulcer prophylaxis. 3. Renal. On presentation, Miguel Angel did have renal insufficiency likely secondary to hypoperfusion injury. His creatinine normalized and remained stable throughout this admission. However, his acute kidney injury likely explains the difficulty in re-establishing his DDAVPdose and fluid balance. 4. Respiratory. Miguel Angel was intubated and stabilized on mechanical ventilation prior to transport andrejoseined on the ventilator for two days. On hospital day two, he was successfully transitioned to room air. Chest x-ray on admission revealed a right lower lobe pneumonia, which was treated with initially cefotaxime and vancomycin and then transitioned to nafcillin for a total of 14 days of IV antibiotic coverage. 5. Cardiovascular. Miguel Angel initially required two pressors and one inotropic agent for blood pressuresupport and was weaned successfully off these by hospital day two. Miguel Angel did exhibit intermittent hypertension, hypotension, bradycardia, hypothermia and skin flushing, likely consistent with dysautonomia. This was discussed with pediatric neurology, who did not recommend any further workup or therapy for this at this time. On admission, Miguel Angel had elevated cardiac enzymes and ST-T wave changes reina EKG indicative of myocardial ischemia, likely secondary to poor perfusion. An echocardiogram wasperformed, which showed good biventricular function and his cardiac enzymes improved on hospital days two and three. 6. Infectious disease. Miguel Angel was found tohave a right lower lobe pneumonia, which was treated with 14 days total of IV antibiotics initially with cefotaxime and vancomycin and then transitioning to nafcillin. His blood culture from May 08, 2008, is negative and his respiratory cultures fromthe same date showed methicillin-sensitive Staphylococcus aureus and Haemophilus parainfluenzae. Miguel Angel was also tested in May 14, 2008, for Clostridium difficile, which was negative. 9. Hematologic. Miguel Angel did on presentation have a mild coagulopathy, which responded to three days of vitamin K therapy. He did have some mild anemia and thrombocytopenia, which did not require any transfusion. 10. Neurologic. An MRI performed after Miguel Angel stabilized from a cardiovascular standpoint revealed new areas of ischemia in the area of the cerebellum. Otherwise, this MRI was stable from previous. This may result in new neurologic deficits after this episode of shock and hypoperfusion. Miguel Angel was transitioned from Keppra to Zonegran during this hospitalization sincehis parents felt he was more ataxic and somnolent on the Keppra. He seemed to tolerate the Zonegran well without side effects. He was restarted on his home doses of Seroquel and temazepam, and his modafinil was increased to help with daytime sleepiness. PT and OT were consulted, as well as pediatric neurology. 11. Endocrine. Bettina ACTH deficiency was treated with Solu-Cortef, which was weaned during his hospitalization and transitioned to p.o. At the time of transfer, he was receiving hydrocortisone 15 mgp.o. t.i.d. TSH deficiency. Miguel Angel was maintained on Levothyroxine and on May 17, 2008, had a free T4 levelof 0.7, thus his Levothyroxine was increased to 200 mcg p.o. daily. Central diabetes insipidus. Miguel Angel was initially maintained on a DDAVP drip and then was transitioned to p.o. and intranasal DDAVP. His response was initially quite unpredictable, thus Miguel Angelurine output and serum electrolytes were followed closely to determine his dosing schedule. He did have an unpredictable response to oral DDAVP and his parents preferred that he not receive intranasal DDAVP because of his multiple upper respiratory tract infections during the wintertime. Thus, it was decided to administer his DDAVP subcutaneously. At that time of transfer, he was stable on 0.5 mcg subcutaneously at 0800 and 2000 with a fluid restriction of 1200ml/day (down from his baseline of 1800ml/day) 12. Pain and sedation. Miguel Angel received Tylenol p.r.n. 13. Ophthalmologic. Miguel Angel on admission was found to have a bilateral inferior subconjunctival hemorrhage. This was treated with erythromycin ophthalmic ointment and artificial tears. No corneal abrasions were seen on fluorescein eye exam. 14. Social. A care conference is scheduled for May 30, 2008, from 12:15 to 1:15 with all of Bettina care providers and family to discuss his disposition and coordination of care. DISPOSITION Transfer to [facility] 5. CONDITION AT DISCHARGE Stable. Supervising Physician Signed by Alanna Neil MD 05/30/2008 15:03 Zain Hdz MD Alanna Neil MD - Zain Hdz MD A - [facility] Job ID: [id number] Document ID: [id number] cc: MD Zain Walker MD Barry W Heath, MD Amelia Hopkins, MD Wicho Carlton, MD Yan Demarco, MD Millicent Garcia, MD hCristopher Ga, MD Jodi Parr, MD Skyler Edwards MD * Lc Cheng MD - 05/12/2008 0000 EST INPATIENT PROGRESS NOTE Service Date: 05/12/2008 PT LOC: M003 This is an inpatient followup consultation at the request of Dr Alanna Neil for this [id number]-hayroyt complicated problems centering around earlier operative craniopharyngioma. He continues on zonisamide now in lieu of Trileptal there having been an appropriate concern raised about the risk of hyponatremia in this young man with diabetes insipidus. Other medications include hydrocortisone, levothyroxine, nafcillin, quetiapine and temazepam (15 mg). He has had no seizures and his sodium has been stable in the 135-147 range and he is being closely watched in terms of his fluid status. He also takes DDAVP. He was extubated 36 hours ago and yesterday had some new sign of bradycardia with preserved perfusion and blood pressure as low as 35. This was body temperatures hovering around 35 thus he is not frankly hypothermic, the bradycardia appears to be related to a central autonomic controlled problem. In terms of his mental status, he is becoming more responsive but dysarthric and also still mostlysleeping. This in turn related to the severe respiratory disease that he has had in his baseline low reserves neurologically related to his earlier and static ROAD CUTTER injury (bilateral thalamic hemorrhagicischemic changes). His examination shows that he isalert and raises his thumb responsively the right thumb (dense lefthemiparesis is his baseline) in a consistent way and seems to be saying yes and no with significantdysarthria. He moves his right foot on command. There is pain and crying self limited with plantar scratch on the left foot. I wondered about a hyperpathia there perhaps related to the hemiparesis and thalamic remote changes. His vital signs and BP are otherwise stable. He has a heart rate now in the 50s-60s. He has undergone speech evaluation and does have aspiration and this is likely to fluctuate and mayimprove. At this point though he came in with mild degree of shock with low blood pressures relatedto his respiratory infection that prompted his hospitalization. There is no definite evidence of a superimposed acquired ROAD CUTTER injury ie hypoxic, ischemic or otherwise. I will suggest; however, a follow up MRI imaging as he recovers in part because of the novel autonomic signs as outlined but I feel that his problems with speech articulation are likely to improve. I will review again with the familyin detail what his baseline has been prior to his recent respiratory complication. We spent over half of a 35 minute visit in coordination of care, including review of testing, symptom management, and plans/contingencies for followup as outlined above. I discussed the findings and implications and reinstitution of modafinil at a higher dose from 100 to 200 mg also in detail with the pediatrics team/Dr Hdz. I appreciate the chance to see Miguel Angel and hope the above is helpful. Signed by Lc Cheng MD 05/25/2008 10:29 Lc Cheng MD D: - Lc Cheng MD P - [facility] Job ID: [id number] Document ID: [id number] cc: MD Jose Alejandro Walker MD Amelia Hopkins, MD Stewart Manchester, MD documented in this encounter Consult Notes * Wicho Carlton MD - 05/17/2008 0000 EST INPATIENT CONSULTATION Admission Date: 05/08/2008 Date of consultation: 05/17/2008 REASON FOR CONSULTATION A rehabilitation consultation is requested by Dr. Jose Alejandro Castro for rehabilitation efforts in this gentleman with spastic hemiplegia. History is obtained from full chart review and results are summarized below. HISTORY OF PRESENT ILLNESS The patient is a 17gentleman who has a complicated medical history including prior bilateral thalamic infarcts, anterior pituitary deficiency, panhypopituitarism, and a history of craniopharyngioma, status post transsphenoidal resection and craniotomy. [facility] [place] on May 08, 2008, with respiratory failure and pneumonia and with a two-week history of cough and congestion. His course has been complicated, with evidence of septic shock, and multiple organdysfunction with cardiac, respiratory, hepatic issues, coagulopathy and renal insufficiency. He also has autonomic dysfunction. He has had evidence of continued hyponatremia and has receivedDDAVP. Physical therapy has been seeing him and he is requiring minimum to moderate assist for all mobility. A rehabilitation consultation is requested to assist with functional recovery efforts. PAST MEDICAL HISTORY Craniopharyngioma status post transsphenoidal resection 2004, frontal craniotomy resection 2004, bilateral thalamic infarcts with left hemiparesis, neurologic findings, dysphagia, dysarthria, aphasia, panhypopituitarism, hypertriglyceridemia, history of behavioral management issues, diabetes insipid us, seizures. CURRENT MEDICATIONS Reviewed on [place]. ALLERGIES No known drug allergies. SOCIAL HISTORY Currently uncertain based on chart review. Apparently, his mother is . He lives with father and stepmother, I believe. FAMILY HISTORY Mother with diabetes type 1, father with diabetes type 2. REVIEW OF SYSTEMS Unobtainable. PHYSICAL EXAMINATION The patient is seen lying in bed in no apparent distress. The patient is unable to be assessed. Left pupil is slightly more dilated than the right. He does do some attempts at speech but very limited. Range of motion to all extremities are within functional limits although there is some increased tone on the left. There does appear to be a slight flexion contracture at the left knee of approximately 10 degrees. Calvesare soft and nontender. He is actively moving the right extremities against gravity but no active movement noted on the left. Sensation cannot be adequately assessed. IMPRESSION 1. Generalized debility secondary to prolonged hospitalization and multiple medical comorbidities. 2. History of bilateral thalamic strokes. 3. History of craniopharyngioma. 4. Panhypopituitarism. RECOMMENDATIONS 1. Please continue present therapy efforts as you are doing to include PT, OT, and ECHO VASCULAR TECH. 2. Septic Tank Setter to clarify home disposition issues and assistance within home environment. As discussed with nursing, family has been present at hospital very minimally since Miguel Angel was admitted. 3. Continue supplemental tube feeds, as you are doing. 4. Monitor skin carefully for evidence of breakdown given limited mobility. I will continue to follow his rehabilitative concerns along with you. Signed by Wicho Carlton MD 05/19/2008 14:21 Wicho Carlton MD - Wciho Carlton MD P - MH Job ID: [id number] Document ID: [id number] cc: Alexis Ocampo III, MD Barry W Heath, MD Robert S Karp, MD Stewart Manchester, MD * Lc Cheng MD - 05/09/2008 0000 EST INPATIENT CONSULTATION Admission Date: 05/08/2008 Date of consultation: 05/09/2008 This is an inpatient PICU consult done at the request of Dr. Castro because of seizure disorder. I agree with the findings and discussion of the case, as documented by neurology resident, Dr. Carr. Miguel Angel is [id number] and has a history of operated craniopharyngioma in 2004. He had complicationsof that procedure including bilateral thalamic hemorrhage and infarction and diabetes insipidus, also visual deficit. He presents now with respiratory failure and is on a ventilator, pressors, associated with pneumonia, has had no seizures. We are asked to comment on advisability or any manipulation that should be made of ongoing therapy with Keppra 300 mg twice daily because of three prior generalized convulsive seizures, the first possibly associated with hyponatremia. Ill suggest that we continue the Keppra, which is being given intravenously, and wefurther discuss the possibility of sedation from this agent, as I had suggested restarting it in the course of emergency room visit about three weeks ago. He had prodromal sputum production and then progressive respiratory distress culminating in presentation here early Friday morning, May 08, 2008, via [facility]. He had mild hypotension, 82/54, with fluid resuscitated and also given Solu-Medrol and antibiotics. He had a mild elevated anion gap but otherwise normal electrolytes with sodium 143 and was treated with dopamine andmilrinone infusion as well as epinephrine and dopamine. He has had a total of three seizures, one in November, one leading to a second admission here in February to another admission here in February when I saw him because of depressed mental status. At that time,my impression was that of a toxic/metabolic encephalopathy due to a combination of medications, sodium changes, hypothermia, and he was treated with stress doses of steroids at that time. The family and stepmother in particular were unhappy with his care and he was transferred to [facility], and, in the course of that hospitalization, which was associated with gradual improvement in his mental status without any other particular diagnostic finding or intervention, his Keppra apparently was discontinued. He presented here with recurrent convulsion, unprovoked, and with a normal sodium ofthree weeks ago when I suggested restarting his Keppra to the current level. His last MRI was done February 11, 2008, and showed no changes from previous study. Last EEG was done February 11, 2008, with mild diffuse slowing. Medical history is otherwise remarkable for intracranial hemorrhage as outlined, central diabetes, central ACTH deficiency and adrenal insufficiency, hypogonadotropic hypogonadism, cortical blindness, left hemiparesis, dysarthria, developmental delay (I believe to some extent premorbid to his surgery in 2004); seizure disorder, hypertriglyceridemia, and a history of depression. Mother, whom I believe is diseased, had diabetes type 1 and the father has type 2 diabetes. He has a history of allergy to gemfibrozil. otherwise include hydrocortisone, desmopressin, levothyroxine, Seroquel 600, sertraline 200, temazepam, testosterone, Provigil 100, Keppra 300 twice daily, and now in addition cefotaxime, ranitidine,vancomycin, vitamin K, fentanyl. Electrolytes were essentially within normal range, last check 133 sodium, 21 bicarb. He had elevated CK and MB fraction 6434 and 126 respectively and troponin elevation that has since resolved. His examination shows an adolescent with eyes open to voice, moving fingers bilaterally to request.Pupils are sluggishly reactive, positive corneal reflex and grimace to pain, absent knee jerks, butelsewhere present reflexes. He is intubated. We will continue to monitor him and discuss his ultimate follow-up neurological care with the family but support ongoing, Keppra therapy, and defer other neurodiagnostic testing for now. We spent over half of a 25-minute visit in coordination of care, including review of testing, symptom management, and plans/contingencies for followup as outlined above. I appreciate the chance to see Miguel Angel and hope the above is helpful. Sincerely, Signed by Lc Cheng MD 05/25/2008 10:28 Lc Cheng MD D: - Lc Cheng MD P - MH Job ID: [id number] Document ID: [id number] cc: MD Jose Alejandro Walker MD Stewart Manchester, MD documented in this encounter Plan of Treatment Upcoming Encounters Date Type Department Care Team (Late st Contact Info) Description 09/09/2024 10:20 EST Office Visit [facility] - [address] [address] Day Littlejohn MD PhD [address] [place] [address] [address] [place] [id number] documented as of this encounter Procedures Procedure Name Priority Date/Time Associated Diagnosis Comments BUN Routine 06/01/2008 5:06 EST GLUCOSE, SERUM Routine 06/01/2008 5:06 EST CREATININE Routine 06/01/2008 5:06 EST ELECTROLYTES Routine 06/01/2008 5:06 EST ELECTROLYTES Routine 05/31/2008 18:00 EST ELECTROLYTES Routine 05/31/2008 12:20 EST BUN Routine 05/31/2008 6:00 EST GLUCOSE, SERUM Routine 05/31/2008 6:00 EST CREATININE Routine 05/31/2008 6:00 EST ELECTROLYTES Routine 05/31/2008 6:00 EST ELECTROLYTES Routine 05/30/2008 18:00 EST ELECTROLYTES Routine 05/30/2008 12:25 EST BUN Routine 05/30/2008 5:10 EST GLUCOSE, SERUM Routine 05/30/2008 5:10 EST CREATININE Routine 05/30/2008 5:10 EST ELECTROLYTES Routine 05/30/2008 5:10 EST ELECTROLYTES Routine 05/29/2008 18:00 EST ELECTROLYTES Routine 05/29/2008 12:32 EST BUN Routine 05/29/2008 6:55 EST GLUCOSE, SERUM Routine 05/29/2008 6:55 EST CREATININE Routine 05/29/2008 6:55 EST ELECTROLYTES Routine 05/29/2008 6:55 EST ELECTROLYTES Routine 05/28/2008 19:00 EST BUN Routine 05/28/2008 6:59 EST GLUCOSE, SERUM Routine 05/28/2008 6:59 EST CREATININE Routine 05/28/2008 6:59 EST ELECTROLYTES Routine 05/28/2008 6:59 EST TESTS ADDED BY PHONE Routine 05/27/2008 19:07 EST BUN Routine 05/27/2008 19:07 EST CREATININE Routine 05/27/2008 19:07 EST ELECTROLYTES Routine 05/27/2008 19:07 EST GLUCOSE, GLUCOMETER Routine 05/27/2008 1 6:21 EST ELECTROLYTES Routine 05/27/2008 16:21 EST GLUCOSE, GLUCOMETER Routine 05/27/2008 1 2:26 EST URINE MICROSCOPIC Routine 05/27/2008 12: 04 EST URINALYSIS WITH MICROSCOPIC IF POSITIVE Routine 05/27/2008 12:04 EST BACTERIAL CULTURE, URINE Routine 05/27/2008 12:04 EST ELECTROLYTES Routine 05/27/2008 11:45 EST GLUCOSE, SERUM Routine 05/27/2008 6:45 EST ELECTROLYTES Routine 05/27/2008 6:45 EST BUN Routine 05/27/2008 3:00 EST CREATININE Routine 05/27/2008 3:00 EST ELECTROLYTES Routine 05/27/2008 3:00 EST ELECTROLYTES Routine 05/26/2008 23:04 EST ELECTROLYTES Routine 05/26/2008 19:14 EST ELECTROLYTES Routine 05/26/2008 15:47 EST GLUCOSE, GLUCOMETER Routine 05/26/2008 1 5:44 EST ELECTROLYTES Routine 05/26/2008 11:50 EST GLUCOSE, GLUCOMETER Routine 05/26/2008 1 1:39 EST ELECTROLYTES Routine 05/26/2008 7:09 EST BUN Routine 05/26/2008 2:58 EST GLUCOSE, SERUM Routine 05/26/2008 2:58 EST CREATININE Routine 05/26/2008 2:58 EST ELECTROLYTES Routine 05/26/2008 2:58 EST ELECTROLYTES Routine 05/26/2008 0:00 EST ELECTROLYTES Routine 05/25/2008 19:59 EST ELECTROLYTES Routine 05/25/2008 16:20 EST ELECTROLYTES Routine 05/25/2008 13:05 EST GLUCOSE, GLUCOMETER Routine 05/25/2008 1 3:00 EST MRSA PCR Routine 05/25/2008 12:40 EST ELECTROLYTES Routine 05/25/2008 10:00 EST ELECTROLYTES Routine 05/25/2008 5:52 EST BUN Routine 05/25/2008 2:54 EST GLUCOSE, SERUM Routine 05/25/2008 2:54 EST ELECTROLYTES Routine 05/25/2008 2:54 EST ELECTROLYTES Routine 05/24/2008 23:58 EST ELECTROLYTES Routine 05/24/2008 19:45 EST ELECTROLYTES Routine 05/24/2008 17:36 EST ELECTROLYTES Routine 05/24/2008 15:20 EST ELECTROLYTES Routine 05/24/2008 12:00 EST CREATININE Routine 05/24/2008 9:47 EST ELECTROLYTES Routine 05/24/2008 9:47 EST GLUCOSE, GLUCOMETER Routine 05/24/2008 7 :24 EST TESTS ADDED BY PHONE Routine 05/24/2008 6:05 EST BUN Routine 05/24/2008 6:05 EST GLUCOSE, SERUM Routine 05/24/2008 6:05 EST CREATININE Routine 05/24/2008 6:05 EST ELECTROLYTES Routine 05/24/2008 6:05 EST ELECTROLYTES Routine 05/24/2008 3:20 EST GLUCOSE, GLUCOMETER Routine 05/24/2008 0 :07 EST ELECTROLYTES Routine 05/24/2008 0:05 EST ELECTROLYTES Routine 05/23/2008 21:00 EST ELECTROLYTES Routine 05/23/2008 18:24 EST ELECTROLYTES Routine 05/23/2008 15:41 EST ELECTROLYTES Routine 05/23/2008 11:58 EST ELECTROLYTES Routine 05/23/2008 9:15 EST GLUCOSE, GLUCOMETER Routine 05/23/2008 9 :11 EST BUN Routine 05/23/2008 6:00 EST CREATININE Routine 05/23/2008 6:00 EST ELECTROLYTES Routine 05/23/2008 6:00 EST GLUCOSE, GLUCOMETER Routine 05/23/2008 3 :59 EST GLUCOSE, SERUM Routine 05/23/2008 3:00 EST ELECTROLYTES Routine 05/23/2008 3:00 EST GLUCOSE, GLUCOMETER Routine 05/23/2008 0 :16 EST ELECTROLYTES Routine 05/23/2008 0:15 EST GLUCOSE, SERUM Routine 05/22/2008 21:25 EST ELECTROLYTES Routine 05/22/2008 21:25 EST ELECTROLYTES Routine 05/22/2008 18:10 EST GLUCOSE, GLUCOMETER Routine 05/22/2008 1 8:08 EST ELECTROLYTES Routine 05/22/2008 14:22 EST ELECTROLYTES Routine 05/22/2008 10:11 EST ELECTROLYTES Routine 05/22/2008 6:25 EST BUN Routine 05/22/2008 3:15 EST CREATININE Routine 05/22/2008 3:15 EST ELECTROLYTES Routine 05/22/2008 3:15 EST GLUCOSE, GLUCOMETER Routine 05/22/2008 3 :14 EST GLUCOSE, GLUCOMETER Routine 05/21/2008 2 3:09 EST ELECTROLYTES Routine 05/21/2008 23:05 EST ELECTROLYTES Routine 05/21/2008 19:02 EST ELECTROLYTES Routine 05/21/2008 15:20 EST GLUCOSE, GLUCOMETER Routine 05/21/2008 1 0:49 EST ELECTROLYTES Routine 05/21/2008 10:44 EST BUN Routine 05/21/2008 6:17 EST GLUCOSE, SERUM Routine 05/21/2008 6:17 EST CREATININE Routine 05/21/2008 6:17 EST ELECTROLYTES Routine 05/21/2008 6:17 EST ELECTROLYTES Routine 05/21/2008 2:10 EST GLUCOSE, SERUM Routine 05/20/2008 22:13 EST ELECTROLYTES Routine 05/20/2008 22:13 EST ELECTROLYTES Routine 05/20/2008 18:35 EST ELECTROLYTES Routine 05/20/2008 15:21 EST ELECTROLYTES Routine 05/20/2008 11:47 EST TESTS ADDED BY PHONE Routine 05/20/2008 9:38 EST PREALBUMIN Routine 05/20/2008 9:38 EST ELECTROLYTES Routine 05/20/2008 9:38 EST ELECTROLYTES Routine 05/20/2008 5:50 EST ELECTROLYTES Routine 05/20/2008 2:50 EST BUN Routine 05/20/2008 0:00 EST CREATININE Routine 05/20/2008 0:00 EST ELECTROLYTES Routine 05/20/2008 0:00 EST ELECTROLYTES Routine 05/19/2008 18:10 EST ELECTROLYTES Routine 05/19/2008 13:40 EST SODIUM, URINE RANDOM Routine 05/19/2008 12:00 EST PORTABLE CHEST 1 VIEW 05/19/2008 9:46 EST GLUCOSE, GLUCOMETER Routine 05/19/2008 9 :38 EST ELECTROLYTES Routine 05/19/2008 9:35 EST ELECTROLYTES Routine 05/19/2008 6:00 EST BUN Routine 05/19/2008 2:58 EST GLUCOSE, SERUM Routine 05/19/2008 2:58 EST CREATININE Routine 05/19/2008 2:58 EST ELECTROLYTES Routine 05/19/2008 2:58 EST SODIUM, URINE RANDOM Routine 05/18/2008 21:20 EST POTASSIUM, URINE RANDOM Routine 05/18/20 08 21:20 EST CREATININE, URINE RANDOM Routine 05/18/2008 21:20 EST OSMOLALITY, URINE Routine 05/18/2008 21: 20 EST CALCIUM, IONIZED Routine 05/18/2008 21:1 7 EST BUN Routine 05/18/2008 21:00 EST PHOSPHORUS Routine 05/18/2008 21:00 EST MAGNESIUM Routine 05/18/2008 21:00 EST GLUCOSE, SERUM Routine 05/18/2008 21:00 EST CREATININE Routine 05/18/2008 21:00 EST CALCIUM IONIZED Routine 05/18/2008 21:00 EST ELECTROLYTES Routine 05/18/2008 21:00 EST GLUCOSE, GLUCOMETER Routine 05/18/2008 1 5:50 EST ELECTROLYTES Routine 05/18/2008 15:48 EST GLUCOSE, GLUCOMETER Routine 05/18/2008 9 :24 EST ELECTROLYTES Routine 05/18/2008 9:20 EST BUN Routine 05/18/2008 3:00 EST GLUCOSE, SERUM Routine 05/18/2008 3:00 EST CREATININE Routine 05/18/2008 3:00 EST ELECTROLYTES Routine 05/18/2008 3:00 EST GLUCOSE, SERUM Routine 05/17/2008 21:10 EST ELECTROLYTES Routine 05/17/2008 21:10 EST GLUCOSE, SERUM Routine 05/17/2008 15:00 EST ELECTROLYTES Routine 05/17/2008 15:00 EST TESTS ADDED BY PHONE Routine 05/17/2008 9:00 EST T4 FREE Routine 05/17/2008 9:00 EST GLUCOSE, SERUM Routine 05/17/2008 9:00 EST ELECTROLYTES Routine 05/17/2008 9:00 EST HOLD GREEN TOP Routine 05/17/2008 5:48 EST HOLD PURPLE TOP Routine 05/17/2008 5:46 EST COMPLETE BLOOD COUNT Routine 05/17/2008 5:46 EST BUN Routine 05/17/2008 5:46 EST GLUCOSE, SERUM Routine 05/17/2008 5:46 EST CREATININE Routine 05/17/2008 5:46 EST ELECTROLYTES Routine 05/17/2008 5:46 EST GLUCOSE, SERUM Routine 05/17/2008 2:09 EST ELECTROLYTES Routine 05/17/2008 2:09 EST GLUCOSE, SERUM Routine 05/16/2008 22:09 EST ELECTROLYTES Routine 05/16/2008 22:09 EST GLUCOSE, SERUM Routine 05/16/2008 18:53 EST ELECTROLYTES Routine 05/16/2008 18:53 EST GLUCOSE, SERUM Routine 05/16/2008 16:00 EST ELECTROLYTES Routine 05/16/2008 16:00 EST GLUCOSE, SERUM Routine 05/16/2008 12:59 EST ELECTROLYTES Routine 05/16/2008 12:59 EST GLUCOSE, SERUM Routine 05/16/2008 9:58 EST ELECTROLYTES Routine 05/16/2008 9:58 EST GLUCOSE, SERUM Routine 05/16/2008 6:50 EST ELECTROLYTES Routine 05/16/2008 6:50 EST TESTS ADDED BY PHONE Routine 05/16/2008 4:15 EST TESTS ADDED BY PHONE Routine 05/16/2008 4:15 EST TOTAL & DIRECT BILIRUBIN Routine 05/16/2008 4:15 EST BUN Routine 05/16/2008 4:15 EST ALT Routine 05/16/2008 4:15 EST AST Routine 05/16/2008 4:15 EST PROTEIN, TOTAL Routine 05/16/2008 4:15 EST ALKALINE PHOSPHATASE Routine 05/16/2008 4:15 EST GLUCOSE, SERUM Routine 05/16/2008 4:15 EST CREATININE Routine 05/16/2008 4:15 EST ALBUMIN Routine 05/16/2008 4:15 EST ELECTROLYTES Routine 05/16/2008 4:15 EST GLUCOSE, SERUM Routine 05/16/2008 1:05 EST ELECTROLYTES Routine 05/16/2008 1:05 EST GLUCOSE, SERUM Routine 05/15/2008 22:35 EST ELECTROLYTES Routine 05/15/2008 22:35 EST GLUCOSE, SERUM Routine 05/15/2008 19:35 EST ELECTROLYTES Routine 05/15/2008 19:35 EST XRAY FEEDING TUBE PLACEMENT 05/15/2008 18:28 EST GLUCOSE, GLUCOMETER Routine 05/15/2008 1 7:29 EST GLUCOSE, SERUM Routine 05/15/2008 16:32 EST ELECTROLYTES Routine 05/15/2008 16:32 EST ELECTROLYTES Routine 05/15/2008 13:28 EST GLUCOSE, GLUCOMETER Routine 05/15/2008 1 3:26 EST ELECTROLYTES Routine 05/15/2008 10:05 EST GLUCOSE, GLUCOMETER Routine 05/15/2008 1 0:00 EST GLUCOSE, GLUCOMETER Routine 05/15/2008 8 :35 EST SODIUM, URINE RANDOM Routine 05/15/2008 8:09 EST POTASSIUM, URINE RANDOM Routine 05/15/20 08 8:09 EST CREATININE, URINE RANDOM Routine 05/15/2008 8:09 EST OSMOLALITY, URINE Routine 05/15/2008 8:0 9 EST PHOSPHORUS Routine 05/15/2008 6:40 EST MAGNESIUM Routine 05/15/2008 6:40 EST GLUCOSE, SERUM Routine 05/15/2008 6:40 EST CALCIUM Routine 05/15/2008 6:40 EST ALBUMIN Routine 05/15/2008 6:40 EST ELECTROLYTES Routine 05/15/2008 6:40 EST BUN Routine 05/15/2008 3:55 EST GLUCOSE, SERUM Routine 05/15/2008 3:55 EST CREATININE Routine 05/15/2008 3:55 EST ELECTROLYTES Routine 05/15/2008 3:55 EST SODIUM, URINE RANDOM Routine 05/15/2008 2:10 EST OSMOLALITY, URINE Routine 05/15/2008 2:1 0 EST PHOSPHORUS Routine 05/15/2008 0:45 EST MAGNESIUM Routine 05/15/2008 0:45 EST GLUCOSE, SERUM Routine 05/15/2008 0:45 EST CALCIUM Routine 05/15/2008 0:45 EST ELECTROLYTES Routine 05/15/2008 0:45 EST GLUCOSE, SERUM Routine 05/14/2008 22:10 EST ELECTROLYTES Routine 05/14/2008 22:10 EST GLUCOSE, SERUM Routine 05/14/2008 18:50 EST ELECTROLYTES Routine 05/14/2008 18:50 EST PHOSPHORUS Routine 05/14/2008 16:26 EST GLUCOSE, SERUM Routine 05/14/2008 16:26 EST CALCIUM Routine 05/14/2008 16:26 EST ELECTROLYTES Routine 05/14/2008 16:26 EST C. DIFFICILE TOXIN Routine 05/14/2008 13 :55 EST GLUCOSE, SERUM Routine 05/14/2008 10:21 EST ELECTROLYTES Routine 05/14/2008 10:21 EST CALCIUM, IONIZED Routine 05/14/2008 5:38 EST CALCIUM IONIZED Routine 05/14/2008 5:27 EST COMPLETE BLOOD COUNT Routine 05/14/2008 4:07 EST BUN Routine 05/14/2008 4:07 EST PHOSPHORUS Routine 05/14/2008 4:07 EST MAGNESIUM Routine 05/14/2008 4:07 EST CREATININE Routine 05/14/2008 4:07 EST CALCIUM Routine 05/14/2008 4:07 EST ELECTROLYTES Routine 05/14/2008 4:07 EST GLUCOSE, GLUCOMETER Routine 05/14/2008 4 :04 EST ELECTROLYTES Routine 05/13/2008 22:11 EST GLUCOSE, GLUCOMETER Routine 05/13/2008 2 2:07 EST XRAY FEEDING TUBE PLACEMENT 05/13/2008 21:33 EST GLUCOSE, GLUCOMETER Routine 05/13/2008 1 6:53 EST ELECTROLYTES Routine 05/13/2008 16:50 EST SODIUM, URINE RANDOM Routine 05/13/2008 13:00 EST MR HEAD W/WO CONTRAST 05/13/2008 11:47 EST NT PRO BNP Routine 05/13/2008 10:00 EST GLUCOSE, SERUM Routine 05/13/2008 10:00 EST ALBUMIN Routine 05/13/2008 10:00 EST ELECTROLYTES Routine 05/13/2008 10:00 EST CALCIUM, IONIZED Routine 05/13/2008 4:18 EST PORTABLE ABDOMEN 1 VIEW 05/13/20 08 4:15 EST PORTABLE CHEST 1 VIEW 05/13/2008 4:14 EST COMPLETE BLOOD COUNT AND DIFFERENTIAL Routine 05/13/2008 4:13 EST BUN Routine 05/13/2008 4:13 EST PHOSPHORUS Routine 05/13/2008 4:13 EST MAGNESIUM Routine 05/13/2008 4:13 EST GLUCOSE, SERUM Routine 05/13/2008 4:13 EST CREATININE Routine 05/13/2008 4:13 EST CALCIUM IONIZED Routine 05/13/2008 4:13 EST ELECTROLYTES Routine 05/13/2008 4:13 EST GLUCOSE, GLUCOMETER Routine 05/13/2008 4 :08 EST URINE CHEMICAL (DIP) & SEDIMENT (MICRO) WITHOUT REFLEX TO CULTURE Routine 05/13/2008 2:03 EST ELECTROLYTES Routine 05/12/2008 21:57 EST GLUCOSE, GLUCOMETER Routine 05/12/2008 2 1:49 EST GLUCOSE, GLUCOMETER Routine 05/12/2008 1 6:06 EST ELECTROLYTES Routine 05/12/2008 16:05 EST GLUCOSE, GLUCOMETER Routine 05/12/2008 9 :21 EST ELECTROLYTES Routine 05/12/2008 9:20 EST COMPLETE BLOOD COUNT AND DIFFERENTIAL Routine 05/12/2008 4:10 EST BUN Routine 05/12/2008 4:10 EST CREATININE Routine 05/12/2008 4:10 EST ELECTROLYTES Routine 05/12/2008 4:10 EST GLUCOSE, GLUCOMETER Routine 05/11/2008 2 0:32 EST ELECTROLYTES Routine 05/11/2008 20:30 EST MRSA PCR Routine 05/11/2008 18:42 EST GLUCOSE, SERUM Routine 05/11/2008 15:17 EST ELECTROLYTES Routine 05/11/2008 15:17 EST XRAY FEEDING TUBE PLACEMENT 05/11/2008 11:27 EST GLUCOSE, SERUM Routine 05/11/2008 8:18 EST ELECTROLYTES Routine 05/11/2008 8:18 EST CALCIUM, IONIZED Routine 05/11/2008 4:07 EST COMPLETE BLOOD COUNT AND DIFFERENTIAL Routine 05/11/2008 3:55 EST BUN Routine 05/11/2008 3:55 EST PHOSPHORUS Routine 05/11/2008 3:55 EST MAGNESIUM Routine 05/11/2008 3:55 EST GLUCOSE, SERUM Routine 05/11/2008 3:55 EST CREATININE Routine 05/11/2008 3:55 EST CALCIUM IONIZED Routine 05/11/2008 3:55 EST ELECTROLYTES Routine 05/11/2008 3:55 EST CALCIUM, IONIZED Routine 05/11/2008 0:56 EST PHOSPHORUS Routine 05/11/2008 0:20 EST MAGNESIUM Routine 05/11/2008 0:20 EST GLUCOSE, SERUM Routine 05/11/2008 0:20 EST CALCIUM IONIZED Routine 05/11/2008 0:20 EST ELECTROLYTES Routine 05/11/2008 0:20 EST CALCIUM, IONIZED Routine 05/10/2008 20:1 8 EST COMPLETE BLOOD COUNT AND DIFFERENTIAL Routine 05/10/2008 19:55 EST PHOSPHORUS Routine 05/10/2008 19:55 EST MAGNESIUM Routine 05/10/2008 19:55 EST GLUCOSE, SERUM Routine 05/10/2008 19:55 EST CALCIUM IONIZED Routine 05/10/2008 19:55 EST ELECTROLYTES Routine 05/10/2008 19:55 EST CALCIUM, IONIZED Routine 05/10/2008 16:3 4 EST PHOSPHORUS Routine 05/10/2008 16:23 EST MAGNESIUM Routine 05/10/2008 16:23 EST GLUCOSE, SERUM Routine 05/10/2008 16:23 EST CALCIUM IONIZED Routine 05/10/2008 16:23 EST ELECTROLYTES Routine 05/10/2008 16:23 EST GLUCOSE, GLUCOMETER Routine 05/10/2008 1 6:16 EST ZZBLOOD GAS, G3 ISTAT Routine 05/10/2008 13:08 EST CALCIUM, IONIZED Routine 05/10/2008 12:2 7 EST SODIUM, URINE RANDOM Routine 05/10/2008 12:27 EST GLUCOSE, GLUCOMETER Routine 05/10/2008 1 2:03 EST PHOSPHORUS Routine 05/10/2008 11:28 EST MAGNESIUM Routine 05/10/2008 11:28 EST GLUCOSE, SERUM Routine 05/10/2008 11:28 EST CALCIUM IONIZED Routine 05/10/2008 11:28 EST ELECTROLYTES Routine 05/10/2008 11:28 EST GLUCOSE, GLUCOMETER Routine 05/10/2008 9 :44 EST CALCIUM, IONIZED Routine 05/10/2008 8:33 EST BLOOD GAS, CG4 ISTAT Routine 05/10/2008 8:29 EST TESTS ADDED BY PHONE Routine 05/10/2008 8:28 EST PHOSPHORUS Routine 05/10/2008 8:28 EST MAGNESIUM Routine 05/10/2008 8:28 EST CALCIUM IONIZED Routine 05/10/2008 8:28 EST ELECTROLYTES Routine 05/10/2008 8:28 EST GLUCOSE, GLUCOMETER Routine 05/10/2008 8 :27 EST ZZBLOOD GAS, G3 ISTAT Routine 05/10/2008 8:19 EST PORTABLE CHEST 1 VIEW 05/10/2008 7:24 EST GLUCOSE, GLUCOMETER Routine 05/10/2008 7 :02 EST GLUCOSE, GLUCOMETER Routine 05/10/2008 6 :11 EST CALCIUM, IONIZED Routine 05/10/2008 5:24 EST ZZBLOOD GAS, G3 ISTAT Routine 05/10/2008 5:04 EST GLUCOSE, GLUCOMETER Routine 05/10/2008 5 :02 EST TROPONIN I Routine 05/10/2008 5:00 EST PTT Routine 05/10/2008 5:00 EST PROTIME Routine 05/10/2008 5:00 EST COMPLETE BLOOD COUNT AND DIFFERENTIAL Routine 05/10/2008 5:00 EST BUN Routine 05/10/2008 5:00 EST ALT Routine 05/10/2008 5:00 EST AST Routine 05/10/2008 5:00 EST PROTEIN, TOTAL Routine 05/10/2008 5:00 EST PHOSPHORUS Routine 05/10/2008 5:00 EST ALKALINE PHOSPHATASE Routine 05/10/2008 5:00 EST MAGNESIUM Routine 05/10/2008 5:00 EST GGT Routine 05/10/2008 5:00 EST GLUCOSE, SERUM Routine 05/10/2008 5:00 EST CREATININE Routine 05/10/2008 5:00 EST CK MB WITH TOTAL CK Routine 05/10/2008 5 :00 EST CALCIUM IONIZED Routine 05/10/2008 5:00 EST ALBUMIN Routine 05/10/2008 5:00 EST ELECTROLYTES Routine 05/10/2008 5:00 EST BLOOD GAS, CG4 ISTAT Routine 05/10/2008 4:59 EST GLUCOSE, GLUCOMETER Routine 05/10/2008 4 :03 EST GLUCOSE, GLUCOMETER Routine 05/10/2008 3 :00 EST GLUCOSE, GLUCOMETER Routine 05/10/2008 2 :03 EST BLOOD GAS, CG4 ISTAT Routine 05/10/2008 1:22 EST GLUCOSE, GLUCOMETER Routine 05/10/2008 1 :21 EST CALCIUM, IONIZED Routine 05/10/2008 1:20 EST ZZBLOOD GAS, G3 ISTAT Routine 05/10/2008 1:17 EST BLOOD GAS, CG4 ISTAT Routine 05/10/2008 1:12 EST PHOSPHORUS Routine 05/10/2008 1:10 EST MAGNESIUM Routine 05/10/2008 1:10 EST CALCIUM IONIZED Routine 05/10/2008 1:10 EST ELECTROLYTES Routine 05/10/2008 1:10 EST GLUCOSE, GLUCOMETER Routine 05/10/2008 0 :20 EST GLUCOSE, GLUCOMETER Routine 05/09/2008 2 3:03 EST GLUCOSE, GLUCOMETER Routine 05/09/2008 2 2:11 EST CALCIUM, IONIZED Routine 05/09/2008 21:2 6 EST GLUCOSE, GLUCOMETER Routine 05/09/2008 2 1:25 EST ZZBLOOD GAS, G3 ISTAT Routine 05/09/2008 21:15 EST PHOSPHORUS Routine 05/09/2008 21:10 EST MAGNESIUM Routine 05/09/2008 21:10 EST CALCIUM IONIZED Routine 05/09/2008 21:10 EST ELECTROLYTES Routine 05/09/2008 21:10 EST BLOOD GAS, CG4 ISTAT Routine 05/09/2008 21:09 EST GLUCOSE, GLUCOMETER Routine 05/09/2008 2 0:15 EST GLUCOSE, GLUCOMETER Routine 05/09/2008 1 9:03 EST GLUCOSE, GLUCOMETER Routine 05/09/2008 1 8:09 EST CALCIUM, IONIZED Routine 05/09/2008 17:2 0 EST BLOOD GAS, CG4 ISTAT Routine 05/09/2008 17:16 EST ZZBLOOD GAS, G3 ISTAT Routine 05/09/2008 17:09 EST GLUCOSE, GLUCOMETER Routine 05/09/2008 1 7:06 EST BUN Routine 05/09/2008 17:00 EST PHOSPHORUS Routine 05/09/2008 17:00 EST MAGNESIUM Routine 05/09/2008 17:00 EST GLUCOSE, SERUM Routine 05/09/2008 17:00 EST CREATININE Routine 05/09/2008 17:00 EST CALCIUM IONIZED Routine 05/09/2008 17:00 EST ELECTROLYTES Routine 05/09/2008 17:00 EST GLUCOSE, GLUCOMETER Routine 05/09/2008 1 5:58 EST GLUCOSE, GLUCOMETER Routine 05/09/2008 1 5:04 EST GLUCOSE, GLUCOMETER Routine 05/09/2008 1 4:05 EST ZZBLOOD GAS, G3 ISTAT Routine 05/09/2008 13:26 EST CALCIUM, IONIZED Routine 05/09/2008 13:2 1 EST BLOOD GAS, CG4 ISTAT Routine 05/09/2008 13:12 EST GLUCOSE, GLUCOMETER Routine 05/09/2008 1 3:08 EST PHOSPHORUS Routine 05/09/2008 13:00 EST MAGNESIUM Routine 05/09/2008 13:00 EST GLUCOSE, SERUM Routine 05/09/2008 13:00 EST CALCIUM IONIZED Routine 05/09/2008 13:00 EST ELECTROLYTES Routine 05/09/2008 13:00 EST GLUCOSE, GLUCOMETER Routine 05/09/2008 1 1:57 EST GLUCOSE, GLUCOMETER Routine 05/09/2008 1 1:07 EST GLUCOSE, GLUCOMETER Routine 05/09/2008 1 0:17 EST SODIUM, URINE RANDOM Routine 05/09/2008 10:17 EST GLUCOSE, GLUCOMETER Routine 05/09/2008 9 :10 EST CALCIUM, IONIZED Routine 05/09/2008 8:24 EST ZZBLOOD GAS, G3 ISTAT Routine 05/09/2008 8:18 EST BLOOD GAS, CG4 ISTAT Routine 05/09/2008 8:08 EST GLUCOSE, GLUCOMETER Routine 05/09/2008 8 :05 EST PHOSPHORUS Routine 05/09/2008 8:00 EST MAGNESIUM Routine 05/09/2008 8:00 EST GLUCOSE, SERUM Routine 05/09/2008 8:00 EST CALCIUM IONIZED Routine 05/09/2008 8:00 EST ELECTROLYTES Routine 05/09/2008 8:00 EST PORTABLE CHEST 1 VIEW 05/09/2008 7:15 EST GLUCOSE, GLUCOMETER Routine 05/09/2008 7 :00 EST GLUCOSE, GLUCOMETER Routine 05/09/2008 6 :03 EST TROPONIN I Routine 05/09/2008 5:20 EST CK MB WITH TOTAL CK Routine 05/09/2008 5 :20 EST GLUCOSE, GLUCOMETER Routine 05/09/2008 5 :00 EST CALCIUM, IONIZED Routine 05/09/2008 4:27 EST ZZBLOOD GAS, G3 ISTAT Routine 05/09/2008 4:19 EST BLOOD GAS, CG4 ISTAT Routine 05/09/2008 4:13 EST GLUCOSE, GLUCOMETER Routine 05/09/2008 4 :10 EST TROPONIN I Routine 05/09/2008 4:10 EST PTT Routine 05/09/2008 4:10 EST PROTIME Routine 05/09/2008 4:10 EST COMPLETE BLOOD COUNT AND DIFFERENTIAL Routine 05/09/2008 4:10 EST TOTAL & DIRECT BILIRUBIN Routine 05/09/2008 4:10 EST BUN Routine 05/09/2008 4:10 EST ALT Routine 05/09/2008 4:10 EST AST Routine 05/09/2008 4:10 EST PHOSPHORUS Routine 05/09/2008 4:10 EST MAGNESIUM Routine 05/09/2008 4:10 EST GGT Routine 05/09/2008 4:10 EST GLUCOSE, SERUM Routine 05/09/2008 4:10 EST CREATININE Routine 05/09/2008 4:10 EST CK MB WITH TOTAL CK Routine 05/09/2008 4 :10 EST CALCIUM IONIZED Routine 05/09/2008 4:10 EST ALBUMIN Routine 05/09/2008 4:10 EST ELECTROLYTES Routine 05/09/2008 4:10 EST GLUCOSE, GLUCOMETER Routine 05/09/2008 3 :03 EST GLUCOSE, GLUCOMETER Routine 05/09/2008 2 :04 EST GLUCOSE, GLUCOMETER Routine 05/09/2008 1 :11 EST ZZBLOOD GAS, G3 ISTAT Routine 05/09/2008 0:29 EST CALCIUM, IONIZED Routine 05/09/2008 0:28 EST BLOOD GAS, CG4 ISTAT Routine 05/09/2008 0:25 EST GLUCOSE, GLUCOMETER Routine 05/09/2008 0 :17 EST PHOSPHORUS Routine 05/09/2008 0:10 EST MAGNESIUM Routine 05/09/2008 0:10 EST GLUCOSE, SERUM Routine 05/09/2008 0:10 EST CALCIUM IONIZED Routine 05/09/2008 0:10 EST ELECTROLYTES Routine 05/09/2008 0:10 EST GLUCOSE, GLUCOMETER Routine 05/08/2008 2 2:59 EST GLUCOSE, GLUCOMETER Routine 05/08/2008 2 1:07 EST CALCIUM, IONIZED Routine 05/08/2008 20:1 7 EST ZZBLOOD GAS, G3 ISTAT Routine 05/08/2008 20:08 EST GLUCOSE, GLUCOMETER Routine 05/08/2008 2 0:06 EST COMPLETE BLOOD COUNT Routine 05/08/2008 20:05 EST BUN Routine 05/08/2008 20:05 EST PHOSPHORUS Routine 05/08/2008 20:05 EST MAGNESIUM Routine 05/08/2008 20:05 EST GLUCOSE, SERUM Routine 05/08/2008 20:05 EST CREATININE Routine 05/08/2008 20:05 EST CALCIUM IONIZED Routine 05/08/2008 20:05 EST VANCOMYCIN, RANDOM Routine 05/08/2008 20 :05 EST ELECTROLYTES Routine 05/08/2008 20:05 EST BLOOD GAS, CG4 ISTAT Routine 05/08/2008 20:02 EST MRSA PCR Routine 05/08/2008 20:00 EST POTASSIUM Routine 05/08/2008 19:00 EST GLUCOSE, GLUCOMETER Routine 05/08/2008 1 8:13 EST CALCIUM, IONIZED Routine 05/08/2008 16:3 1 EST BUN Routine 05/08/2008 16:27 EST PHOSPHORUS Routine 05/08/2008 16:27 EST MAGNESIUM Routine 05/08/2008 16:27 EST GLUCOSE, SERUM Routine 05/08/2008 16:27 EST CREATININE Routine 05/08/2008 16:27 EST CALCIUM IONIZED Routine 05/08/2008 16:27 EST ELECTROLYTES Routine 05/08/2008 16:27 EST ZZBLOOD GAS, G3 ISTAT Routine 05/08/2008 16:22 EST BLOOD GAS, CG4 ISTAT Routine 05/08/2008 16:14 EST GLUCOSE, GLUCOMETER Routine 05/08/2008 1 6:11 EST PORTABLE CHEST 1 VIEW 05/08/2008 14:48 EST CALCIUM, IONIZED Routine 05/08/2008 13:0 4 EST COMPLETE BLOOD COUNT AND DIFFERENTIAL Routine 05/08/2008 12:57 EST TOTAL & DIRECT BILIRUBIN Routine 05/08/2008 12:57 EST PROTEIN, TOTAL Routine 05/08/2008 12:57 EST PHOSPHORUS Routine 05/08/2008 12:57 EST MAGNESIUM Routine 05/08/2008 12:57 EST GLUCOSE, SERUM Routine 05/08/2008 12:57 EST CALCIUM IONIZED Routine 05/08/2008 12:57 EST ALBUMIN Routine 05/08/2008 12:57 EST ELECTROLYTES Routine 05/08/2008 12:57 EST ZZBLOOD GAS, G3 ISTAT Routine 05/08/2008 12:52 EST BLOOD GAS, CG4 ISTAT Routine 05/08/2008 12:46 EST BACTERIAL CULTURE, BLOOD Routine 05/08/2008 12:00 EST BACTERIAL CULTURE, BLOOD Routine 05/08/2008 11:59 EST ECHOCARDIOGRAM 05/08/2008 10:55 EST BACTERIAL CULTURE/SMEAR, RESPIRATORY Routine 05/08/2008 10:20 EST ZZBLOOD GAS, G3 ISTAT Routine 05/08/2008 8:45 EST PORTABLE CHEST 1 VIEW 05/08/2008 8:35 EST ABDOMEN AP 1 VIEW 05/08/2008 8:3 5 EST BLOOD GAS, CG4 ISTAT Routine 05/08/2008 8:35 EST BLOOD GAS, CG4 ISTAT Routine 05/08/2008 8:28 EST GLUCOSE, GLUCOMETER Routine 05/08/2008 8 :24 EST BLOOD GAS, CG4 ISTAT Routine 05/08/2008 6:56 EST DELTA CREATININE Routine 05/08/2008 6:50 EST TROPONIN I Routine 05/08/2008 6:50 EST LACTIC ACID Routine 05/08/2008 6:50 EST PTT Routine 05/08/2008 6:50 EST PROTIME Routine 05/08/2008 6:50 EST FIBRINOGEN Routine 05/08/2008 6:50 EST D-DIMER Routine 05/08/2008 6:50 EST COMPLETE BLOOD COUNT AND DIFFERENTIAL Routine 05/08/2008 6:50 EST BUN Routine 05/08/2008 6:50 EST ALT Routine 05/08/2008 6:50 EST AST Routine 05/08/2008 6:50 EST PHOSPHORUS Routine 05/08/2008 6:50 EST MAGNESIUM Routine 05/08/2008 6:50 EST GGT Routine 05/08/2008 6:50 EST GLUCOSE, SERUM Routine 05/08/2008 6:50 EST CREATININE Routine 05/08/2008 6:50 EST CK MB WITH TOTAL CK Routine 05/08/2008 6 :50 EST ELECTROLYTES Routine 05/08/2008 6:50 EST GLUCOSE, GLUCOMETER Routine 05/08/2008 6 :31 EST documented in this encounter Results * GLUCOSE, SERUM (06/01/2008 5:06 EST) Glucose, Serum 73 70 - 100 mg/dl [facility] 06/01/2008 5:06 EST 06/01/2008 5:35 EST Jodi Parr MD CHEMISTRY & BLOOD GA S ORDERABLES Performing Organization Address [facility] Co de Phone Number [facility] [address] [place] [address] * CREATININE (06/01/2008 5:06 EST) Creatinine 0.71 0.6 - 1.2 mg/dl [facility] GFR, Calculated Age <18 ml/min/1.7 3m2 [facility] 06/01/2008 5:06 EST 06/01/2008 5:35 EST Jodi Parr MD CHEMISTRY & BLOOD GA S ORDERABLES Performing Organization Address [facility] Phone Number [facility] [address] [place] [address] * BUN (06/01/2008 5:06 EST) BUN 16 8 - 21 mg/dl [facility] 06/01/2008 5:06 EST 06/01/2008 5:35 EST Jodi Parr MD CHEMISTRY & BLOOD GA S ORDERABLES Performing Organization Address [facility] de Phone Number [facility] [address] [place] [address] * (ABNORMAL) ELECTROLYTES (06/01/2008 5:06 EST) Sodium 138 136 - 145 mEq/L [facility] Potassium 4.0 3.5 - 5.0 mEq/L [facility] Chloride 103 96 - 110 mEq/L [facility] CO2 23(L) 24 - 32 mEq/L [facility] 06/01/2008 5:06 EST 06/01/2008 5:35 EST Jodi Parr MD CHEMISTRY & BLOOD GA S ORDERABLES Performing Organization Address [facility] Co de Phone Number [facility] [address] [place] [address] * ELECTROLYTES (05/31/2008 18:00 EST) Sodium 137 136 - 145 mEq/L [facility] Potassium 3.8 3.5 - 5.0 mEq/L [facility] Chloride 99 96 - 110 mEq/L [facility] CO2 24 24 - 32 mEq/L [facility] 05/31/2008 18:0 0 EST 05/31/2008 18:56 EST Jodi Parr MD CHEMISTRY & BLOOD GA S ORDERABLES Performing Organization Address [facility] Co de Phone Number [facility] [address] [place] [address] * ELECTROLYTES (05/31/2008 12:20 EST) Sodium 136 136 - 145 mEq/L [facility] Potassium 3.5 3.5 - 5.0 mEq/L [facility] Chloride 97 96 - 110 mEq/L [facility] CO2 25 24 - 32 mEq/L [facility] 05/31/2008 12:2 0 EST 05/31/2008 12:32 EST Jodi Parr MD CHEMISTRY & BLOOD GA S ORDERABLES Performing Organization Address [facility] de Phone Number [facility] [address] [place] [address] * (ABNORMAL) GLUCOSE, SERUM (05/31/2008 6:00 EST) Glucose, Serum 67(L) 70 - 100 mg/dl [facility] 05/31/2008 6:00 EST 05/31/2008 6:24 EST Jodi Parr MD CHEMISTRY & BLOOD GA S ORDERABLES Performing Organization Address [facility] Co de Phone Number [facility] [address] [place] [address] * CREATININE (05/31/2008 6:00 EST) Creatinine 0.70 0.6 - 1.2 mg/dl [facility] GFR, Calculated Age <18 ml/min/1.7 3m2 [facility] 05/31/2008 6:00 EST 05/31/2008 6:24 EST Jodi Parr MD CHEMISTRY & BLOOD GA S ORDERABLES Performing Organization Address [facility] de Phone Number [facility] [address] [place] [address] * BUN (05/31/2008 6:00 EST) BUN 18 8 - 21 mg/dl [facility] 05/31/2008 6:00 EST 05/31/2008 6:24 EST Jodi Parr MD CHEMISTRY & BLOOD GA S ORDERABLES Performing Organization Address [facility] de Phone Number [facility] [address] [place] [address] * (ABNORMAL) ELECTROLYTES (05/31/2008 6:00 EST) Sodium 135(L) 136 - 145 mEq/L [facility] Potassium 4.3 3.5 - 5.0 mEq/L [facility] Chloride 100 96 - 110 mEq/L [facility] CO2 22(L) 24 - 32 mEq/L [facility] 05/31/2008 6:00 EST 05/31/2008 6:24 EST Jodi Parr MD CHEMISTRY & BLOOD GA S ORDERABLES Performing Organization Address [facility] Phone Number [facility] [address] [place] [address] * (ABNORMAL) ELECTROLYTES (05/30/2008 18:00 EST) Sodium 136 136 - 145 mEq/L [facility] Comment:Slightly lipemic Potassium 4.1 3.5 - 5.0 mEq/L [facility] Comment:Slightly lipemic Chloride 98 96 - 110 mEq/L [facility] Comment:Slightly lipemic CO2 21(L) 24 - 32 mEq/L [facility] Comment:Slightly lipemic 05/30/2008 18:0 0 EST 05/30/2008 19:02 EST Jodi Parr MD CHEMISTRY & BLOOD GA S ORDERABLES Performing Organization Address [facility] Phone Number [facility] [address] [place] [address] * ELECTROLYTES (05/30/2008 12:25 EST) Sodium 136 136 - 145 mEq/L [facility] Potassium 3.7 3.5 - 5.0 mEq/L [facility] Chloride 97 96 - 110 mEq/L [facility] CO2 25 24 - 32 mEq/L [facility] 05/30/2008 12:2 5 EST 05/30/2008 12:33 EST Jodi Parr MD CHEMISTRY & BLOOD GA S ORDERABLES Performing Organization Address [facility] Phone Number [facility] [address] [place] [address] * (ABNORMAL) GLUCOSE, SERUM (05/30/2008 5:10 EST) Glucose, Serum 63(L) 70 - 100 mg/dl [facility] 05/30/2008 5:10 EST 05/30/2008 5:32 EST Jodi Parr MD CHEMISTRY & BLOOD GA S ORDERABLES Performing Organization Address [facility] Phone Number [facility] [address] [place] [address] * CREATININE (05/30/2008 5:10 EST) Creatinine 0.70 0.6 - 1.2 mg/dl [facility] GFR, Calculated Age <18 ml/min/1.7 3m2 [facility] 05/30/2008 5:10 EST 05/30/2008 5:32 EST Jodi Parr MD CHEMISTRY & BLOOD GA S ORDERABLES [facility] [address] [place] [address] * BUN (05/30/2008 5:10 EST) BUN 16 8 - 21 mg/dl [facility] 05/30/2008 5:10 EST 05/30/2008 5:32 EST Jodi Parr MD CHEMISTRY & BLOOD GA S ORDERABLES Performing Organization Address [facility] de Phone Number [facility] [address] [place] [address] * (ABNORMAL) ELECTROLYTES (05/30/2008 5:10 EST) Sodium 132(L) 136 - 145 mEq/L [facility] Potassium 4.4 3.5 - 5.0 mEq/L [facility] Chloride 98 96 - 110 mEq/L [facility] CO2 25 24 - 32 mEq/L [facility] 05/30/2008 5:10 EST 05/30/2008 5:32 EST Jodi Parr MD CHEMISTRY & BLOOD GA S ORDERABLES Performing Organization Address [facility] de Phone Number [facility] [address] [place] [address] * (ABNORMAL) ELECTROLYTES (05/29/2008 18:00 EST) Sodium 134(L) 136 - 145 mEq/L [facility] Comment:Moderately lipemic Potassium 4.1 3.5 - 5.0 mEq/L [facility] Comment:Moderately lipemic Chloride 96 96 - 110 mEq/L [facility] Comment:Moderately lipemic CO2 26 24 - 32 mEq/L [facility] Comment:Moderately lipemic 05/29/2008 18:0 0 EST 05/29/2008 18:39 EST Jose Alejandro Castro MD CHEMISTRY & BLOOD GA S ORDERABLES Performing Organization Address [facility] Co de Phone Number [facility] [address] [place] [address] * (ABNORMAL) ELECTROLYTES (05/29/2008 12:32 EST) Sodium 134(L) 136 - 145 mEq/L [facility] Comment:Heparinized plasma. Potassium 3.7 3.5 - 5.0 mEq/L [facility] Comment:Heparinized plasma. Chloride 97 96 - 110 mEq/L [facility] Comment:Heparinized plasma. CO2 25 24 - 32 mEq/L [facility] Comment:Heparinized plasma. 05/29/2008 12:3 2 EST 05/29/2008 12:32 EST Jodi Parr MD CHEMISTRY & BLOOD GA S ORDERABLES Performing Organization Address [facility] Co de Phone Number [facility] [address] [place] [address] * (ABNORMAL) GLUCOSE, SERUM (05/29/2008 6:55 EST) Glucose, Serum 62(L) 70 - 100 mg/dl [facility] 05/29/2008 6:55 EST 05/29/2008 7:36 EST Jose Alejandro Castro MD CHEMISTRY & BLOOD GA S ORDERABLES Performing Organization Address [facility] Co de Phone Number [facility] [address] [place] [address] * CREATININE (05/29/2008 6:55 EST) Creatinine 0.60 0.6 - 1.2 mg/dl [facility] GFR, Calculated Age <18 ml/min/1.7 3m2 [facility] 05/29/2008 6:55 EST 05/29/2008 7:36 EST Jose Alejandro Castro MD CHEMISTRY & BLOOD GA S ORDERABLES Performing Organization Address [facility] Co de Phone Number [facility] [address] [place] [address] * BUN (05/29/2008 6:55 EST) BUN 16 8 - 21 mg/dl [facility] 05/29/2008 6:55 EST 05/29/2008 7:36 EST Jose Alejandro Castro MD CHEMISTRY & BLOOD GA S ORDERABLES Performing Organization Address [facility] Co de Phone Number [facility] [address] [place] [address] * (ABNORMAL) ELECTROLYTES (05/29/2008 6:55 EST) Sodium 134(L) 136 - 145 mEq/L [facility] Potassium 4.0 3.5 - 5.0 mEq/L [facility] Chloride 99 96 - 110 mEq/L [facility] CO2 22(L) 24 - 32 mEq/L [facility] 05/29/2008 6:55 EST 05/29/2008 7:36 EST Jose Alejandro Castro MD CHEMISTRY & BLOOD GA S ORDERABLES Performing Organization Address [facility] Co de Phone Number [facility] [address] [place] [address] * ELECTROLYTES (05/28/2008 19:00 EST) Sodium 136 136 - 145 mEq/L [facility] Potassium 4.2 3.5 - 5.0 mEq/L [facility] Chloride 98 96 - 110 mEq/L [facility] CO2 26 24 - 32 mEq/L [facility] 05/28/2008 19:0 0 EST 05/28/2008 19:12 EST Jose Alejandro Castro MD CHEMISTRY & BLOOD GA S ORDERABLES Performing Organization Address [facility] Co de Phone Number [facility] [address] [place] [address] * (ABNORMAL) GLUCOSE, SERUM (05/28/2008 6:59 EST) Glucose, Serum 66(L) 70 - 100 mg/dl [facility] 05/28/2008 6:59 EST 05/28/2008 6:59 EST Jose Alejandro Castro MD CHEMISTRY & BLOOD GA S ORDERABLES Performing Organization Address [facility]/ZIP Co de Phone Number [facility] [address] [place] [address] * (ABNORMAL) CREATININE (05/28/2008 6:59 EST) Creatinine 0.50(L) 0.6 - 1.2 mg/dl [facility] GFR, Calculated Age <18 ml/min/1.7 3m2 [facility] 05/28/2008 6:59 EST 05/28/2008 6:59 EST Jose Alejandro Castro MD CHEMISTRY & BLOOD GA S ORDERABLES Performing Organization Address [facility] Co de Phone Number [facility] [address] [place] [address] * BUN (05/28/2008 6:59 EST) BUN 15 8 - 21 mg/dl [facility] 05/28/2008 6:59 EST 05/28/2008 6:59 EST Jose Alejandro Castro MD CHEMISTRY & BLOOD GA S ORDERABLES Performing Organization Address [facility] Co de Phone Number [facility] [address] [place] [address] * (ABNORMAL) ELECTROLYTES (05/28/2008 6:59 EST) Sodium 134(L) 136 - 145 mEq/L [facility] Potassium 4.4 3.5 - 5.0 mEq/L [facility] Chloride 99 96 - 110 mEq/L [facility] CO2 25 24 - 32 mEq/L [facility] 05/28/2008 6:59 EST 05/28/2008 6:59 EST Jose Alejandro Castro MD CHEMISTRY & BLOOD GA S ORDERABLES Performing Organization Address [facility] Co de Phone Number [facility] [address] [place] [address] * (ABNORMAL) CREATININE (05/27/2008 19:07 EST) Pathologist [facility] Creatinine 0.50(L) 0.6 - 1.2 mg/dl [facility] GFR, Calculated Age <18 ml/min/1.7 3m2 [facility] 05/27/2008 19:0 7 EST 05/27/2008 19:07 EST Jose Alejandro Castro MD CHEMISTRY & BLOOD GA S ORDERABLES Performing Organization Address [facility] Co de Phone Number [facility] [address] [place] [address] * BUN (05/27/2008 19:07 EST) [facility] BUN 16 8 - 21 mg/dl [facility] 05/27/2008 19:0 7 EST 05/27/2008 19:07 EST Jose Alejandro Castro MD CHEMISTRY & BLOOD GA S ORDERABLES Performing Organization Address [facility] Co de Phone Number [facility] [address] [place] [address] * TESTS ADDED BY PHONE (05/27/2008 19:07 EST) [facility] Tests to be added STAT BUN,KEELYAT [facility] Who Called DR ALDO [facility] Location Code [id number] [facility] 05/27/2008 19:0 7 EST 05/27/2008 19:07 EST Jos eAlejandro Castro MD CHEMISTRY & BLOOD GA S ORDERABLES Performing Organization Address [facility] Phone Number [facility] [address] [place] [address] * (ABNORMAL) ELECTROLYTES (05/27/2008 19:07 EST) Pathologist [facility] Sodium 135(L) 136 - 145 mEq/L [facility] Potassium 3.8 3.5 - 5.0 mEq/L [facility] Chloride 98 96 - 110 mEq/L [facility] CO2 26 24 - 32 mEq/L [facility] 05/27/2008 19:0 7 EST 05/27/2008 19:07 EST Jose Alejandro Castro MD CHEMISTRY & BLOOD GA S ORDERABLES Performing Organization Address [facility] Phone Number [facility] [address] [place] [address] * (ABNORMAL) GLUCOSE, GLUCOMETER (05/27/2008 16:21 EST) Glucose, Fingerstick 124(H) 70 - 100 mg/dl [facility] Milk [employer] Grader ID [id number] Test Performed by Nursing Services [facility] 05/27/2008 16:2 1 EST 05/27/2008 23:27 EST Jose Alejandro Castro MD CHEMISTRY & BLOOD GA S ORDERABLES Performing Organization Address [facility] Phone Number [facility] [address] [place] [address] * (ABNORMAL) ELECTROLYTES (05/27/2008 16:21 EST) Sodium 134(L) 136 - 145 mEq/L [facility] Potassium 3.9 3.5 - 5.0 mEq/L [facility] Chloride 97 96 - 110 mEq/L [facility] CO2 26 24 - 32 mEq/L [facility] 05/27/2008 16:2 1 EST 05/27/2008 16:21 EST Jose Alejandro Castro MD CHEMISTRY & BLOOD GA S ORDERABLES Performing Organization Address [facility] de Phone Number [facility] [address] [place] [address] * GLUCOSE, GLUCOMETER (05/27/2008 12:26 EST) Glucose, Fingerstick 87 70 - 100 mg/dl [facility] [employer] ID [id number] Test Performed by Nursing Services [facility] 05/27/2008 12:2 6 EST 05/27/2008 23:27 EST Jose Alejandro Castro MD CHEMISTRY & BLOOD GA S ORDERABLES Performing Organization Address [facility]/ZIP Co de Phone Number [facility] [address] [place] [address] * BACTERIAL CULTURE, URINE (05/27/2008 12:04 EST) Specimen Description Urine [facility] Result No growth [facility] Report Status Final 05/28/2008 [facility] 05/27/2008 12:0 4 EST 05/27/2008 13:14 EST Jose Alejandro Castro MD MICROBIOLOGY - GENER AL ORDERABLES Performing Organization Address [facility] Co de Phone Number [facility] [address] [place] [address] * (ABNORMAL) URINALYSIS, CHEMICAL (05/27/2008 12:04 EST) Color, UA Yellow [facility] Clarity, UA Clear [facility] Glucose, UA Norm NORM [facility] Bilirubin, UA Neg NEG [facility] Ketones, UA Neg NEG [facility] Specific [place], Urine >1.030(H) 1.005 - 1.02 [facility] Blood, UA Small(A) NEG [facility] pH, UA 5.5 5.0 - 9.0 [facility] Protein, UA Trace(A) NEG [facility] Urobilinogen, UA Norm NORM mg/dL [facility] Nitrite, UA Neg NEG [facility] Leuk Esterase Neg NEG [facility] Refractometer SG,Urine 1.028(H) 1.005 - 1.02 [facility] 05/27/2008 12:0 4 EST 05/27/2008 13:15 EST Jose Alejandro Castro MD URINALYSIS ORDERABLE S Performing Organization Address [facility]/ZIP Co de Phone Number [facility] [address] [place] [address] * URINE MICROSCOPIC (05/27/2008 12:04 EST) WBC, UA 1 to 5 0 - 5 /HPF [facility] RBC, UA 5 to 10 0 - 5 /HPF [facility] Squam Epithel, UA None seen NS /HPF [facility] Renal Epithel, UA None seen NS /HPF [facility] Bacteria, UA None seen NS /HPF [facility] Crystals, UA 1 to 10 /HPF [facility] Comment:Calcium Oxalate Hyaline Casts, UA None seen /LPF [facility] Comment Microscopic results are unreliable on urines unrefrig >2hrs or refrig >8hrs. [facility] Mucus, UA Present [facility] 05/27/2008 12:0 4 EST 05/27/2008 13:15 EST Jose Alejandro Castro MD URINALYSIS ORDERABLE S Performing Organization Address [facility] de Phone Number [facility] [address] [place] [address] * (ABNORMAL) ELECTROLYTES (05/27/2008 11:45 EST) Sodium 135(L) 136 - 145 mEq/L [facility] Potassium 4.1 3.5 - 5.0 mEq/L [facility] Chloride 97 96 - 110 mEq/L [facility] CO2 26 24 - 32 mEq/L [facility] 05/27/2008 11:4 5 EST 05/27/2008 11:45 EST Jose Alejandro Castro MD CHEMISTRY & BLOOD GA S ORDERABLES Performing Organization Address [facility] de Phone Number [facility] [address] [place] [address] * GLUCOSE, SERUM (05/27/2008 6:45 EST) Glucose, Serum 74 70 - 100 mg/dl [facility] 05/27/2008 6:45 EST 05/27/2008 6:55 EST Jose Alejandro Castro MD CHEMISTRY & BLOOD GA S ORDERABLES Performing Organization Address [facility] Co de Phone Number [facility] [address] [place] [address] * (ABNORMAL) ELECTROLYTES (05/27/2008 6:45 EST) Sodium 133(L) 136 - 145 mEq/L [facility] Potassium 3.9 3.5 - 5.0 mEq/L [facility] Chloride 98 96 - 110 mEq/L [facility] CO2 25 24 - 32 mEq/L [facility] 05/27/2008 6:45 EST 05/27/2008 6:55 EST Jose Alejandro Castro MD CHEMISTRY & BLOOD GA S ORDERABLES Performing Organization Address [facility] Co hi Phone Number [facility] [address] [place] [address] * CREATININE (05/27/2008 3:00 EST) Creatinine 0.60 0.6 - 1.2 mg/dl [facility] GFR, Calculated Age <18 ml/min/1.7 3m2 [facility] 05/27/2008 3:00 EST 05/27/2008 3:06 EST Jose Alejandro Castro MD CHEMISTRY & BLOOD GA S ORDERABLES Performing Organization Address [facility] Phone Number [facility] [address] * (ABNORMAL) BUN (05/27/2008 3:00 EST) BUN 22(H) 8 - 21 mg/dl [facility] 05/27/2008 3:00 EST 05/27/2008 3:06 EST Jose Alejandro Castro MD CHEMISTRY & BLOOD GA S ORDERABLES Performing Organization Address [facility] Co de Phone Number [facility] [address] [place] [address] * (ABNORMAL) ELECTROLYTES (05/27/2008 3:00 EST) Sodium 132(L) 136 - 145 mEq/L [facility] Potassium 4.1 3.5 - 5.0 mEq/L [facility] Chloride 98 96 - 110 mEq/L [facility] CO2 26 24 - 32 mEq/L [facility] 05/27/2008 3:00 EST 05/27/2008 3:06 EST Jose Alejandro Castro MD CHEMISTRY & BLOOD GA S ORDERABLES Performing Organization Address [place] [facility] Co de Phone Number [facility] [address] [place] [address] * (ABNORMAL) ELECTROLYTES (05/26/2008 23:04 EST) Sodium 135(L) 136 - 145 mEq/L [facility] Potassium 4.3 3.5 - 5.0 mEq/L [facility] Chloride 99 96 - 110 mEq/L [facility] CO2 25 24 - 32 mEq/L [facility] 05/26/2008 23:0 4 EST 05/26/2008 23:04 EST Jose Alejandro Castro MD CHEMISTRY & BLOOD GA S ORDERABLES Performing Organization Address [facility] de Phone Number [facility] [address] [place] [address] * ELECTROLYTES (05/26/2008 19:14 EST) Sodium 136 136 - 145 mEq/L [facility] Potassium 4.2 3.5 - 5.0 mEq/L [facility] Chloride 99 96 - 110 mEq/L [facility] CO2 25 24 - 32 mEq/L [facility] 05/26/2008 19:1 4 EST 05/26/2008 19:14 EST Jose Alejandro Castro MD CHEMISTRY & BLOOD GA S ORDERABLES Performing Organization Address [facility] Co de Phone Number [facility] [address] [place] [address] * (ABNORMAL) ELECTROLYTES (05/26/2008 15:47 EST) Sodium 134(L) 136 - 145 mEq/L [facility] Potassium 4.5 3.5 - 5.0 mEq/L [facility] Chloride 99 96 - 110 mEq/L [facility] CO2 25 24 - 32 mEq/L [facility] 05/26/2008 15:4 7 EST 05/26/2008 15:47 EST Jose Alejandro Castro MD CHEMISTRY & BLOOD GA S ORDERABLES Performing Organization Address [facility] Co de Phone Number [facility] [address] [place] [address] * GLUCOSE, GLUCOMETER (05/26/2008 15:44 EST) Glucose, Fingerstick 98 70 - 100 mg/dl [facility] [employer] [place] ID [id number] Test Performed by Nursing Services [facility] 05/26/2008 15:4 4 EST 05/26/2008 23:27 EST Jose Alejandro Castro MD CHEMISTRY & BLOOD GA S ORDERABLES Performing Organization Address [facility] de Phone Number [facility] [address] [place] [address] * ELECTROLYTES (05/26/2008 11:50 EST) Sodium 136 136 - 145 mEq/L [facility] Potassium 4.4 3.5 - 5.0 mEq/L [facility] Chloride 100 96 - 110 mEq/L [facility] CO2 24 24 - 32 mEq/L [facility] 05/26/2008 11:5 0 EST 05/26/2008 11:50 EST Jose Alejandro Castro MD CHEMISTRY & BLOOD GA S ORDERABLES Performing Organization Address [facility] de Phone Number [facility] [address] [place] [address] * (ABNORMAL) GLUCOSE, GLUCOMETER (05/26/2008 11:39 EST) Glucose, Fingerstick 107(H) 70 - 100 mg/dl [facility] [employer] ID [id number] Test Performed by Nursing Services [facility] 05/26/2008 11:3 9 EST 05/26/2008 23:27 EST Jose Alejandro Castro MD CHEMISTRY & BLOOD GA S ORDERABLES Performing Organization Address [facility] de Phone Number [facility] [address] [place] [address] * ELECTROLYTES (05/26/2008 7:09 EST) Sodium 138 136 - 145 mEq/L [facility] Potassium 4.5 3.5 - 5.0 mEq/L [facility] Chloride 102 96 - 110 mEq/L [facility] CO2 25 24 - 32 mEq/L [facility] 05/26/2008 7:09 EST 05/26/2008 7:09 EST Jose Alejandro Castro MD CHEMISTRY & BLOOD GA S ORDERABLES Performing Organization Address [facility] Phone Number [facility] [address] [place] [address] * GLUCOSE, SERUM (05/26/2008 2:58 EST) Glucose, Serum 79 70 - 100 mg/dl [facility] Comment:Slightly lipemic 05/26/2008 2:58 EST 05/26/2008 2:58 EST Jose Alejandro Castro MD CHEMISTRY & BLOOD GA S ORDERABLES Performing Organization Address [facility] de Phone Number [facility] [address] [place] [address] * CREATININE (05/26/2008 2:58 EST) Creatinine 0.70 0.6 - 1.2 mg/dl [facility] Comment:Slightly lipemic GFR, Calculated Age <18 Slightly lipemic ml/min/1. 73m2 [facility] 05/26/2008 2:58 EST 05/26/2008 2:58 EST Jose Alejandro Castro MD CHEMISTRY & BLOOD GA S ORDERABLES Performing Organization Address [facility] Co de Phone Number [facility] [address] [place] [address] * BUN (05/26/2008 2:58 EST) BUN 17 8 - 21 mg/dl [facility] Comment:Slightly lipemic 05/26/2008 2:58 EST 05/26/2008 2:58 EST Jose Alejandro Castro MD CHEMISTRY & BLOOD GA S ORDERABLES Performing Organization Address [facility] de Phone Number [facility] [address] [place] [address] * ELECTROLYTES (05/26/2008 2:58 EST) Sodium 137 136 - 145 mEq/L [facility] Comment:Slightly lipemic Potassium 4.7 3.5 - 5.0 mEq/L [facility] Comment:Slightly lipemic Chloride 101 96 - 110 mEq/L [facility] Comment:Slightly lipemic CO2 25 24 - 32 mEq/L [facility] Comment:Slightly lipemic 05/26/2008 2:58 EST 05/26/2008 2:58 EST Jose Alejandro Castro MD CHEMISTRY & BLOOD GA S ORDERABLES Performing Organization Address [facility] de Phone Number [facility] [address] [place] [address] * ELECTROLYTES (05/26/2008 0:00 EST) Sodium 139 136 - 145 mEq/L [facility] Comment:Slightly lipemic Potassium 4.3 3.5 - 5.0 mEq/L [facility] Comment:Slightly lipemic Chloride 100 96 - 110 mEq/L [facility] Comment:Slightly lipemic CO2 24 24 - 32 mEq/L [facility] Comment:Slightly lipemic 05/26/2008 05/26/2008 0:1 0 EST Jose Alejandro Castro MD CHEMISTRY & BLOOD GA S ORDERABLES Performing Organization Address [facility] Co de Phone Number [facility] [address] [place] [address] * (ABNORMAL) ELECTROLYTES (05/25/2008 19:59 EST) Sodium 135(L) 136 - 145 mEq/L [facility] Potassium 4.6 3.5 - 5.0 mEq/L [facility] Chloride 97 96 - 110 mEq/L [facility] CO2 26 24 - 32 mEq/L [facility] 05/25/2008 19:5 9 EST 05/25/2008 19:59 EST Jose Alejandro Castro MD CHEMISTRY & BLOOD GA S ORDERABLES Performing Organization Address [facility] Co de Phone Number [facility] [address] [place] [address] * ELECTROLYTES (05/25/2008 16:20 EST) Sodium 137 136 - 145 mEq/L [facility] Potassium 4.4 3.5 - 5.0 mEq/L [facility] Chloride 98 96 - 110 mEq/L [facility] CO2 26 24 - 32 mEq/L [facility] 05/25/2008 16:2 0 EST 05/25/2008 16:20 EST Jose Alejandro Castro MD CHEMISTRY & BLOOD GA S ORDERABLES Performing Organization Address [facility] de Phone Number [facility] [address] [place] [address] * ELECTROLYTES (05/25/2008 13:05 EST) Sodium 138 136 - 145 mEq/L [facility] Potassium 4.5 3.5 - 5.0 mEq/L [facility] Chloride 98 96 - 110 mEq/L [facility] CO2 26 24 - 32 mEq/L [facility] 05/25/2008 13:0 5 EST 05/25/2008 13:05 EST Jose Alejandro Castro MD CHEMISTRY & BLOOD GA S ORDERABLES Performing Organization Address City/[facility]/ZIP Co de Phone Number [facility] [address] [place] [address] * GLUCOSE, GLUCOMETER (05/25/2008 13:00 EST) Glucose, Fingerstick 88 70 - 100 mg/dl [facility] [employer] Grader ID [id number] Test Performed by Nursing Services [facility] 05/25/2008 13:0 0 EST 05/25/2008 23:23 EST Jose Alejandro Castro MD CHEMISTRY & BLOOD GA S ORDERABLES Performing Organization Address [facility] de Phone Number [facility] [address] [place] [address] * MRSA MOLECULAR DETECTION (05/25/2008 12:40 EST) Specimen Description Tomás [facility] Result NEGATIVE for Methicillin Resistant Staphylococcus aureus DNA by PCR. [facility] Report Status Final 05/26/2008 [facility] 05/25/2008 12:4 0 EST 05/25/2008 14:30 EST Jose Alejandro Castro MD MICROBIOLOGY - GENER AL ORDERABLES Performing Organization Address [facility] Phone Number [facility] [address] [place] [address] * ELECTROLYTES (05/25/2008 10:00 EST) Sodium 139 136 - 145 mEq/L [facility] Potassium 4.5 3.5 - 5.0 mEq/L [facility] Chloride 101 96 - 110 mEq/L [facility] CO2 26 24 - 32 mEq/L [facility] 05/25/2008 10:0 0 EST 05/25/2008 10:00 EST Jose Alejandro Castro MD CHEMISTRY & BLOOD GA S ORDERABLES Performing Organization Address [facility] Co de Phone Number [facility] [address] [place] [address] * (ABNORMAL) ELECTROLYTES (05/25/2008 5:52 EST) Sodium 134(L) 136 - 145 mEq/L [facility] Potassium 4.1 3.5 - 5.0 mEq/L [facility] Chloride 99 96 - 110 mEq/L [facility] CO2 24 24 - 32 mEq/L [facility] 05/25/2008 5:52 EST 05/25/2008 5:52 EST Jose Alejandro Castro MD CHEMISTRY & BLOOD GA S ORDERABLES Performing Organization Address [facility] de Phone Number [facility] [address] [place] [address] * GLUCOSE, SERUM (05/25/2008 2:54 EST) Glucose, Serum 75 70 - 100 mg/dl [facility] 05/25/2008 2:54 EST 05/25/2008 2:56 EST Jose Alejandro Castro MD CHEMISTRY & BLOOD GA S ORDERABLES Performing Organization Address [facility] Phone Number [facility] [address] [place] [address] * BUN (05/25/2008 2:54 EST) BUN 16 8 - 21 mg/dl [facility] 05/25/2008 2:54 EST 05/25/2008 2:56 EST Jose Alejandro Castro MD CHEMISTRY & BLOOD GA S ORDERABLES Performing Organization Address [facility] de Phone Number [facility] [address] [place] [address] * (ABNORMAL) ELECTROLYTES (05/25/2008 2:54 EST) Sodium 132(L) 136 - 145 mEq/L [facility] Potassium 4.4 3.5 - 5.0 mEq/L [facility] Chloride 98 96 - 110 mEq/L [facility] CO2 25 24 - 32 mEq/L [facility] 05/25/2008 2:54 EST 05/25/2008 2:56 EST Jose Alejandro Castro MD CHEMISTRY & BLOOD GA S ORDERABLES Performing Organization Address [facility] Co de Phone Number [facility] [address] [place] [address] * (ABNORMAL) ELECTROLYTES (05/24/2008 23:58 EST) Sodium 133(L) 136 - 145 mEq/L [facility] Potassium 4.6 3.5 - 5.0 mEq/L [facility] Chloride 98 96 - 110 mEq/L [facility] CO2 24 24 - 32 mEq/L [facility] 05/24/2008 23:5 8 EST 05/24/2008 23:58 EST Jose Alejandro Castro MD CHEMISTRY & BLOOD GA S ORDERABLES Performing Organization Address [facility] de Phone Number [facility] [address] [place] [address] * (ABNORMAL) ELECTROLYTES (05/24/2008 19:45 EST) Sodium 135(L) 136 - 145 mEq/L [facility] Potassium 4.5 3.5 - 5.0 mEq/L [facility] Chloride 99 96 - 110 mEq/L [facility] CO2 25 24 - 32 mEq/L [facility] 05/24/2008 19:4 5 EST 05/24/2008 20:53 EST Jose Alejandro Castro MD CHEMISTRY & BLOOD GA S ORDERABLES Performing Organization Address [facility] Co de Phone Number [facility] [address] [place] [address] * ELECTROLYTES (05/24/2008 17:36 EST) Sodium 136 136 - 145 mEq/L [facility] Potassium 4.4 3.5 - 5.0 mEq/L [facility] Chloride 99 96 - 110 mEq/L [facility] CO2 24 24 - 32 mEq/L [facility] 05/24/2008 17:3 6 EST 05/24/2008 17:37 EST Jose Alejandro Castro MD CHEMISTRY & BLOOD GA S ORDERABLES Performing Organization Address [facility] de Phone Number [facility] [address] [place] [address] * ELECTROLYTES (05/24/2008 15:20 EST) Sodium 137 136 - 145 mEq/L [facility] Potassium 4.1 3.5 - 5.0 mEq/L [facility] Chloride 100 96 - 110 mEq/L [facility] CO2 25 24 - 32 mEq/L [facility] 05/24/2008 15:2 0 EST 05/24/2008 15:25 EST Jose Alejandro Castro MD CHEMISTRY & BLOOD GA S ORDERABLES Performing Organization Address [facility] Phone Number [facility] [address] [place] [address] * (ABNORMAL) ELECTROLYTES (05/24/2008 12:00 EST) Sodium 134(L) 136 - 145 mEq/L [facility] Potassium 3.9 3.5 - 5.0 mEq/L [facility] Chloride 97 96 - 110 mEq/L [facility] CO2 24 24 - 32 mEq/L [facility] 05/24/2008 12:0 0 EST 05/24/2008 12:27 EST Jose Alejandro Castro MD CHEMISTRY & BLOOD GA S ORDERABLES Performing Organization Address [facility] de Phone Number [facility] [address] [place] [address] * CREATININE (05/24/2008 9:47 EST) Creatinine 0.60 0.6 - 1.2 mg/dl [facility] GFR, Calculated Age <18 ml/min/1.7 3m2 [facility] 05/24/2008 9:47 EST 05/24/2008 9:47 EST Jose Alejandro Castro MD CHEMISTRY & BLOOD GA S ORDERABLES Performing Organization Address [facility] Co de Phone Number [facility] [address] [place] [address] * (ABNORMAL) ELECTROLYTES (05/24/2008 9:47 EST) Sodium 134(L) 136 - 145 mEq/L [facility] Potassium 4.5 3.5 - 5.0 mEq/L [facility] Chloride 96 96 - 110 mEq/L [facility] CO2 27 24 - 32 mEq/L [facility] 05/24/2008 9:47 EST 05/24/2008 9:47 EST Jose Alejandro Castro MD CHEMISTRY & BLOOD GA S ORDERABLES Performing Organization Address [facility] Co de Phone Number [facility] [address] [place] [address] * (ABNORMAL) GLUCOSE, GLUCOMETER (05/24/2008 7:24 EST) Glucose, Fingerstick 67(L) 70 - 100 mg/dl [facility] [employer] Grader ID [id number] Test Performed by Nursing Services [facility] 05/24/2008 7:24 EST 05/24/2008 23:10 EST Jose Alejandro Castro MD CHEMISTRY & BLOOD GA S ORDERABLES Performing Organization Address [facility] Co de Phone Number [facility] [address] [place] [address] * CREATININE (05/24/2008 6:05 EST) Creatinine 0.60 0.6 - 1.2 mg/dl [facility] GFR, Calculated Age <18 ml/min/1.7 3m2 [facility] 05/24/2008 6:05 EST 05/24/2008 6:11 EST Jose Alejandro Castro MD CHEMISTRY & BLOOD GA S ORDERABLES Performing Organization Address City/[facility] Co de Phone Number [facility] [address] [place] [address] * TESTS ADDED BY PHONE (05/24/2008 6:05 EST) Tests to be added STAT CREAT [facility] Who Called JOSELUIS Packer FOR DR [facility] Location Code [id number] [facility] 05/24/2008 6:05 EST 05/24/2008 6:11 EST Jose Alejandro Castro MD CHEMISTRY & BLOOD GA S ORDERABLES Performing Organization Address [facility] Co de Phone Number [facility] [address] [place] [address] * (ABNORMAL) GLUCOSE, SERUM (05/24/2008 6:05 EST) Pathologist [facility] Glucose, Serum 66(L) 70 - 100 mg/dl [facility] 05/24/2008 6:05 EST 05/24/2008 6:11 EST Jose Alejandro Castro MD CHEMISTRY & BLOOD GA S ORDERABLES Performing Organization Address [facility] Co de Phone Number [facility] [address] [place] [address] * BUN (05/24/2008 6:05 EST) Pathologist [facility] BUN 16 8 - 21 mg/dl [facility] 05/24/2008 6:05 EST 05/24/2008 6:11 EST Jose Alejandro Castro MD CHEMISTRY & BLOOD GA S ORDERABLES Performing Organization Address [facility] Co de Phone Number [facility] [address] [place] [address] * (ABNORMAL) ELECTROLYTES (05/24/2008 6:05 EST) Sodium 130(L) 136 - 145 mEq/L [facility] Potassium 4.4 3.5 - 5.0 mEq/L [facility] Chloride 96 96 - 110 mEq/L [facility] CO2 26 24 - 32 mEq/L [facility] 05/24/2008 6:05 EST 05/24/2008 6:11 EST Jose Alejandro Castro MD CHEMISTRY & BLOOD GA S ORDERABLES Performing Organization Address [facility] Phone Number [facility] [address] [place] [address] * (ABNORMAL) ELECTROLYTES (05/24/2008 3:20 EST) Sodium 133(L) 136 - 145 mEq/L [facility] Comment:Slightly lipemic Potassium 4.6 3.5 - 5.0 mEq/L [facility] Comment:Slightly lipemic Chloride 97 96 - 110 mEq/L [facility] Comment:Slightly lipemic CO2 24 24 - 32 mEq/L [facility] Comment:Slightly lipemic 05/24/2008 3:20 EST 05/24/2008 3:24 EST Jose Alejandro Castro MD CHEMISTRY & BLOOD GA S ORDERABLES Performing Organization Address [facility] de Phone Number [facility] [address] [place] [address] * (ABNORMAL) GLUCOSE, GLUCOMETER (05/24/2008 0:07 EST) Glucose, Fingerstick 119(H) 70 - 100 mg/dl [facility] [employer] Grader ID [id number] Test Performed by Nursing Services [facility] 05/24/2008 0:07 EST 05/24/2008 23:10 EST Jose Alejandro Castro MD CHEMISTRY & BLOOD GA S ORDERABLES Performing Organization Address [facility] de Phone Number [facility] [address] [place] [address] * (ABNORMAL) ELECTROLYTES (05/24/2008 0:05 EST) Sodium 134(L) 136 - 145 mEq/L [facility] Comment:Slightly lipemic Potassium 4.6 3.5 - 5.0 mEq/L [facility] Comment:Slightly lipemic Chloride 99 96 - 110 mEq/L [facility] Comment:Slightly lipemic CO2 24 24 - 32 mEq/L [facility] Comment:Slightly lipemic 05/24/2008 0:05 EST 05/24/2008 0:17 EST Jose Alejandro Castro MD CHEMISTRY & BLOOD GA S ORDERABLES Performing Organization Address [facility] Co de Phone Number [facility] [address] [place] [address] * ELECTROLYTES (05/23/2008 21:00 EST) Sodium 138 136 - 145 mEq/L [facility] Potassium 3.8 3.5 - 5.0 mEq/L [facility] Chloride 99 96 - 110 mEq/L [facility] CO2 25 24 - 32 mEq/L [facility] 05/23/2008 21:0 0 EST 05/23/2008 21:07 EST Jose Alejandro Castro MD CHEMISTRY & BLOOD GA S ORDERABLES Performing Organization Address [facility] Co de Phone Number [facility] [address] [place] [address] * ELECTROLYTES (05/23/2008 18:24 EST) Sodium 137 136 - 145 mEq/L [facility] Potassium 4.9 3.5 - 5.0 mEq/L [facility] Chloride 99 96 - 110 mEq/L [facility] CO2 27 24 - 32 mEq/L [facility] 05/23/2008 18:2 4 EST 05/23/2008 18:24 EST Jose Alejandro Castro MD CHEMISTRY & BLOOD GA S ORDERABLES Performing Organization Address [facility] Co de Phone Number [facility] [address] [place] [address] * ELECTROLYTES (05/23/2008 15:41 EST) Sodium 137 136 - 145 mEq/L [facility] Potassium 4.1 3.5 - 5.0 mEq/L [facility] Chloride 97 96 - 110 mEq/L [facility] CO2 26 24 - 32 mEq/L [facility] 05/23/2008 15:4 1 EST 05/23/2008 15:41 EST Jose Alejandro Castro MD CHEMISTRY & BLOOD GA S ORDERABLES Performing Organization Address [facility] de Phone Number [facility] [address] [place] [address] * ELECTROLYTES (05/23/2008 11:58 EST) Sodium 137 136 - 145 mEq/L [facility] Potassium 3.6 3.5 - 5.0 mEq/L [facility] Chloride 99 96 - 110 mEq/L [facility] CO2 25 24 - 32 mEq/L [facility] 05/23/2008 11:5 8 EST 05/23/2008 11:58 EST Jose Alejandro Castro MD CHEMISTRY & BLOOD GA S ORDERABLES Performing Organization Address [facility] Phone Number [facility] [address] [place] [address] * ELECTROLYTES (05/23/2008 9:15 EST) Sodium 139 136 - 145 mEq/L [facility] Potassium 4.0 3.5 - 5.0 mEq/L [facility] Chloride 100 96 - 110 mEq/L [facility] CO2 26 24 - 32 mEq/L [facility] 05/23/2008 9:15 EST 05/23/2008 9:15 EST Jose Alejandro Castro MD CHEMISTRY & BLOOD GA S ORDERABLES Performing Organization Address [facility] de Phone Number [facility] [address] [place] [address] * GLUCOSE, GLUCOMETER (05/23/2008 9:11 EST) Glucose, Fingerstick 90 70 - 100 mg/dl [facility] [employer] Grader ID [id number] Test Performed by Nursing Services [facility] 05/23/2008 9:11 EST 05/23/2008 23:07 EST Jose Alejandro Castro MD CHEMISTRY & BLOOD GA S ORDERABLES Performing Organization Address [facility]/ZIP Co de Phone Number [facility] [address] [place] [address] * CREATININE (05/23/2008 6:00 EST) Creatinine 0.60 0.6 - 1.2 mg/dl [facility] GFR, Calculated Age <18 ml/min/1.7 3m2 [facility] 05/23/2008 6:00 EST 05/23/2008 6:11 EST Jose Alejandro Castro MD CHEMISTRY & BLOOD GA S ORDERABLES Performing Organization Address [facility] de Phone Number [facility] [address] [place] [address] * BUN (05/23/2008 6:00 EST) BUN 13 8 - 21 mg/dl [facility] 05/23/2008 6:00 EST 05/23/2008 6:11 EST Jose Alejandro Castro MD CHEMISTRY & BLOOD GA S ORDERABLES Performing Organization Address [facility] Co de Phone Number [facility] [address] [place] [address] * (ABNORMAL) ELECTROLYTES (05/23/2008 6:00 EST) Sodium 134(L) 136 - 145 mEq/L [facility] Potassium 4.4 3.5 - 5.0 mEq/L [facility] Chloride 99 96 - 110 mEq/L [facility] CO2 25 24 - 32 mEq/L [facility] 05/23/2008 6:00 EST 05/23/2008 6:11 EST Jose Alejandro Castro MD CHEMISTRY & BLOOD GA S ORDERABLES Performing Organization Address [facility] Co de Phone Number [facility] [address] [place] [address] * (ABNORMAL) GLUCOSE, GLUCOMETER (05/23/2008 3:59 EST) Glucose, Fingerstick 105(H) 70 - 100 mg/dl [facility] [employer] ID [id number] Test Performed by Nursing Services [facility] 05/23/2008 3:59 EST 05/23/2008 23:07 EST Jose Alejandro Castro MD CHEMISTRY & BLOOD GA S ORDERABLES Performing Organization Address City/[facility] Co de Phone Number [facility] [address] [place] [address] * GLUCOSE, SERUM (05/23/2008 3:00 EST) Glucose, Serum 76 70 - 100 mg/dl [facility] 05/23/2008 3:00 EST 05/23/2008 3:05 EST Jose Alejandro Castro MD CHEMISTRY & BLOOD GA S ORDERABLES Performing Organization Address [facility] Co de Phone Number [facility] [address] [place] [address] * (ABNORMAL) ELECTROLYTES (05/23/2008 3:00 EST) Sodium 132(L) 136 - 145 mEq/L [facility] Potassium 4.2 3.5 - 5.0 mEq/L [facility] Chloride 99 96 - 110 mEq/L [facility] CO2 24 24 - 32 mEq/L [facility] 05/23/2008 3:00 EST 05/23/2008 3:05 EST Jose Alejandro Castro MD CHEMISTRY & BLOOD GA S ORDERABLES Performing Organization Address City/[facility] Co de Phone Number [facility] [address] [place] [address] * (ABNORMAL) GLUCOSE, GLUCOMETER (05/23/2008 0:16 EST) Glucose, Fingerstick 104(H) 70 - 100 mg/dl [facility] [employer] Grader ID [id number] Test Performed by Nursing Services [facility] 05/23/2008 0:16 EST 05/23/2008 23:07 EST Jose Alejandro Castro MD CHEMISTRY & BLOOD GA S ORDERABLES Performing Organization Address [facility] Phone Number [facility] [address] [place] [address] * (ABNORMAL) ELECTROLYTES (05/23/2008 0:15 EST) Sodium 133(L) 136 - 145 mEq/L [facility] Potassium 4.1 3.5 - 5.0 mEq/L [facility] Chloride 95(L) 96 - 110 mEq/L [facility] CO2 26 24 - 32 mEq/L [facility] 05/23/2008 0:15 EST 05/23/2008 0:23 EST Jose Alejandro Castro MD CHEMISTRY & BLOOD GA S ORDERABLES Performing Organization Address [facility] Phone Number [facility] [address] [place] [address] * GLUCOSE, SERUM (05/22/2008 21:25 EST) Glucose, Serum 90 70 - 100 mg/dl [facility] 05/22/2008 21:2 5 EST 05/22/2008 21:32 EST Jose Alejandro Castro MD CHEMISTRY & BLOOD GA S ORDERABLES Performing Organization Address [facility] Phone Number [facility] [address] [place] [address] * (ABNORMAL) ELECTROLYTES (05/22/2008 21:25 EST) Sodium 132(L) 136 - 145 mEq/L [facility] Potassium 4.1 3.5 - 5.0 mEq/L [facility] Chloride 96 96 - 110 mEq/L [facility] CO2 25 24 - 32 mEq/L [facility] 05/22/2008 21:2 5 EST 05/22/2008 21:32 EST Jose Alejandro Castro MD CHEMISTRY & BLOOD GA S ORDERABLES Performing Organization Address [facility]/ZIP Co de Phone Number [facility] [address] [place] [address] * (ABNORMAL) ELECTROLYTES (05/22/2008 18:10 EST) Sodium 134(L) 136 - 145 mEq/L [facility] Potassium 4.5 3.5 - 5.0 mEq/L [facility] Chloride 96 96 - 110 mEq/L [facility] CO2 26 24 - 32 mEq/L [facility] 05/22/2008 18:1 0 EST 05/22/2008 18:12 EST Jose Alejandro Castro MD CHEMISTRY & BLOOD GA S ORDERABLES Performing Organization Address [facility] Co de Phone Number [facility] [address] [place] [address] * (ABNORMAL) GLUCOSE, GLUCOMETER (05/22/2008 18:08 EST) Glucose, Fingerstick 101(H) 70 - 100 mg/dl [facility] [employer]ader ID [id number] Test Performed by Nursing Services [facility] 05/22/2008 18:0 8 EST 05/22/2008 23:44 EST Jose Alejandro Castro MD CHEMISTRY & BLOOD GA S ORDERABLES Performing Organization Address [facility] Co de Phone Number [facility] [address] [place] [address] * (ABNORMAL) ELECTROLYTES (05/22/2008 14:22 EST) Sodium 133(L) 136 - 145 mEq/L [facility] Potassium 4.3 3.5 - 5.0 mEq/L [facility] Chloride 97 96 - 110 mEq/L [facility] CO2 28 24 - 32 mEq/L [facility] 05/22/2008 14:2 2 EST 05/22/2008 14:22 EST Jose Alejandro Castro MD CHEMISTRY & BLOOD GA S ORDERABLES Performing Organization Address [facility] Phone Number [facility] [address] [place] [address] * (ABNORMAL) ELECTROLYTES (05/22/2008 10:11 EST) Sodium 135(L) 136 - 145 mEq/L [facility] Comment:Heparinized plasma. Potassium 3.9 3.5 - 5.0 mEq/L [facility] Comment:Heparinized plasma. Chloride 99 96 - 110 mEq/L [facility] Comment:Heparinized plasma. CO2 28 24 - 32 mEq/L [facility] Comment:Heparinized plasma. 05/22/2008 10:1 1 EST 05/22/2008 10:11 EST Jose Alejandro aCstro MD CHEMISTRY & BLOOD GA S ORDERABLES Performing Organization Address [facility] Phone Number [facility] [address] [place] [address] * ELECTROLYTES (05/22/2008 6:25 EST) Sodium 136 136 - 145 mEq/L [facility] Potassium 4.1 3.5 - 5.0 mEq/L [facility] Chloride 102 96 - 110 mEq/L [facility] CO2 25 24 - 32 mEq/L [facility] 05/22/2008 6:25 EST 05/22/2008 6:33 EST Jose Alejandro Castro MD CHEMISTRY & BLOOD GA S ORDERABLES Performing Organization Address [facility] Phone Number [facility] [address] [place] [address] * CREATININE (05/22/2008 3:15 EST) Creatinine 0.70 0.6 - 1.2 mg/dl [facility] GFR, Calculated Age <18 ml/min/1.7 3m2 [facility] 05/22/2008 3:15 EST 05/22/2008 3:20 EST Jose Alejandro Castro MD CHEMISTRY & BLOOD GA S ORDERABLES Performing Organization Address City/[facility]/ZIP Co de Phone Number [facility] [address] [place] [address] * BUN (05/22/2008 3:15 EST) BUN 15 8 - 21 mg/dl [facility] 05/22/2008 3:15 EST 05/22/2008 3:20 EST Jose Alejandro Castro MD CHEMISTRY & BLOOD GA S ORDERABLES Performing Organization Address City/[facility]/ZIP Co de Phone Number [facility] [address] [place] [address] * ELECTROLYTES (05/22/2008 3:15 EST) Sodium 137 136 - 145 mEq/L [facility] Potassium 4.2 3.5 - 5.0 mEq/L [facility] Chloride 103 96 - 110 mEq/L [facility] CO2 24 24 - 32 mEq/L [facility] 05/22/2008 3:15 EST 05/22/2008 3:20 EST Jose Alejandro Castro MD CHEMISTRY & BLOOD GA S ORDERABLES Performing Organization Address [facility] Co de Phone Number [facility] [address] [place] [address] * GLUCOSE, GLUCOMETER (05/22/2008 3:14 EST) Glucose, Fingerstick 97 70 - 100 mg/dl [facility] [employer] Grader ID [id number] Test Performed by Nursing Services [facility] 05/22/2008 3:14 EST 05/22/2008 23:43 EST Jose Alejandro Castro MD CHEMISTRY & BLOOD GA S ORDERABLES Performing Organization Address [facility] Co de Phone Number [facility] [address] [place] [address] * GLUCOSE, GLUCOMETER (05/21/2008 23:09 EST) Glucose, Fingerstick 82 70 - 100 mg/dl [facility] [employer] ID [id number] Test Performed by Nursing Services [facility] 05/21/2008 23:0 9 EST 05/21/2008 23:11 EST Jose Alejandro Castro MD CHEMISTRY & BLOOD GA S ORDERABLES Performing Organization Address [facility] de Phone Number [facility] [address] [place] [address] * ELECTROLYTES (05/21/2008 23:05 EST) Sodium 140 136 - 145 mEq/L [facility] Potassium 4.5 3.5 - 5.0 mEq/L [facility] Chloride 105 96 - 110 mEq/L [facility] CO2 24 24 - 32 mEq/L [facility] 05/21/2008 23:0 5 EST 05/21/2008 23:18 EST Jose Alejandro Castro MD CHEMISTRY & BLOOD GA S ORDERABLES Performing Organization Address [facility] de Phone Number [facility] [address] [place] [address] * ELECTROLYTES (05/21/2008 19:02 EST) Sodium 141 136 - 145 mEq/L [facility] Potassium 4.1 3.5 - 5.0 mEq/L [facility] Chloride 103 96 - 110 mEq/L [facility] CO2 26 24 - 32 mEq/L [facility] 05/21/2008 19:0 2 EST 05/21/2008 19:04 EST Jose Alejandro Castro MD CHEMISTRY & BLOOD GA S ORDERABLES Performing Organization Address [facility] de Phone Number [facility] [address] [place] [address] * ELECTROLYTES (05/21/2008 15:20 EST) Sodium 141 136 - 145 mEq/L [facility] Potassium 4.3 3.5 - 5.0 mEq/L [facility] Chloride 104 96 - 110 mEq/L [facility] CO2 28 24 - 32 mEq/L [facility] 05/21/2008 15:2 0 EST 05/21/2008 15:21 EST Jose Alejandro Castro MD CHEMISTRY & BLOOD GA S ORDERABLES Performing Organization Address [facility] de Phone Number [facility] [address] [place] [address] * (ABNORMAL) GLUCOSE, GLUCOMETER (05/21/2008 10:49 EST) Glucose, Fingerstick 137(H) 70 - 100 mg/dl [facility] [employer] ID [id number] Test Performed by Nursing Services [facility] 05/21/2008 10:4 9 EST 05/21/2008 23:05 EST Jose Alejandro Castro MD CHEMISTRY & BLOOD GA S ORDERABLES Performing Organization Address [facility] de Phone Number [facility] [address] [place] [address] * ELECTROLYTES (05/21/2008 10:44 EST) Sodium 143 136 - 145 mEq/L [facility] Potassium 3.5 3.5 - 5.0 mEq/L [facility] Chloride 107 96 - 110 mEq/L [facility] CO2 25 24 - 32 mEq/L [facility] 05/21/2008 10:4 4 EST 05/21/2008 10:50 EST Jose Alejandro Castro MD CHEMISTRY & BLOOD GA S ORDERABLES Performing Organization Address [facility] Phone Number [facility] [address] [place] [address] * (ABNORMAL) GLUCOSE, SERUM (05/21/2008 6:17 EST) Glucose, Serum 66(L) 70 - 100 mg/dl [facility] 05/21/2008 6:17 EST 05/21/2008 6:17 EST Jose Alejandro Castro MD CHEMISTRY & BLOOD GA S ORDERABLES Performing Organization Address [facility] Co de Phone Number [facility] [address] [place] [address] * CREATININE (05/21/2008 6:17 EST) Creatinine 0.66 0.6 - 1.2 mg/dl [facility] GFR, Calculated Age <18 ml/min/1.7 3m2 [facility] 05/21/2008 6:17 EST 05/21/2008 6:17 EST Jose Alejandro Castro MD CHEMISTRY & BLOOD GA S ORDERABLES Performing Organization Address [facility] Co de Phone Number [facility] [address] [place] [address] * BUN (05/21/2008 6:17 EST) BUN 12 8 - 21 mg/dl [facility] 05/21/2008 6:17 EST 05/21/2008 6:17 EST Jose Alejandro Castro MD CHEMISTRY & BLOOD GA S ORDERABLES Performing Organization Address [facility] Co de Phone Number [facility] [address] [place] [address] * ELECTROLYTES (05/21/2008 6:17 EST) Sodium 142 136 - 145 mEq/L [facility] Potassium 4.3 3.5 - 5.0 mEq/L [facility] Chloride 109 96 - 110 mEq/L [facility] CO2 26 24 - 32 mEq/L [facility] 05/21/2008 6:17 EST 05/21/2008 6:17 EST Jose Alejandro Castro MD CHEMISTRY & BLOOD GA S ORDERABLES Performing Organization Address [facility] Co de Phone Number [facility] [address] [place] [address] * (ABNORMAL) ELECTROLYTES (05/21/2008 2:10 EST) Sodium 144 136 - 145 mEq/L [facility] Potassium 4.9 3.5 - 5.0 mEq/L [facility] Chloride 112(H) 96 - 110 mEq/L [facility] CO2 22(L) 24 - 32 mEq/L [facility] 05/21/2008 2:10 EST 05/21/2008 2:10 EST Jose Alejandro Castro MD CHEMISTRY & BLOOD GA S ORDERABLES Performing Organization Address [facility] de Phone Number [facility] [address] [place] [address] * GLUCOSE, SERUM (05/20/2008 22:13 EST) Glucose, Serum 89 70 - 100 mg/dl [facility] 05/20/2008 22:1 3 EST 05/20/2008 22:13 EST Jose Alejandro Castro MD CHEMISTRY & BLOOD GA S ORDERABLES Performing Organization Address [facility] Phone Number [facility] [address] [place] [address] * (ABNORMAL) ELECTROLYTES (05/20/2008 22:13 EST) Sodium 148(H) 136 - 145 mEq/L [facility] Potassium 4.7 3.5 - 5.0 mEq/L [facility] Chloride 112(H) 96 - 110 mEq/L [facility] CO2 25 24 - 32 mEq/L [facility] 05/20/2008 22:1 3 EST 05/20/2008 22:13 EST Jose Alejandro Castro MD CHEMISTRY & BLOOD GA S ORDERABLES Performing Organization Address [facility] de Phone Number [facility] [address] [place] [address] * ELECTROLYTES (05/20/2008 18:35 EST) Sodium 143 136 - 145 mEq/L [facility] Comment:Heparinized plasma. Potassium 4.0 3.5 - 5.0 mEq/L [facility] Comment:Heparinized plasma. Chloride 105 96 - 110 mEq/L [facility] Comment:Heparinized plasma. CO2 25 24 - 32 mEq/L [facility] Comment:Heparinized plasma. 05/20/2008 18:3 5 EST 05/20/2008 18:35 EST Jose Alejandro Castro MD CHEMISTRY & BLOOD GA S ORDERABLES Performing Organization Address [facility] Phone Number [facility] [address] [place] [address] * ELECTROLYTES (05/20/2008 15:21 EST) Sodium 140 136 - 145 mEq/L [facility] Comment:Heparinized plasma. Potassium 4.5 3.5 - 5.0 mEq/L [facility] Comment:Heparinized plasma. Chloride 102 96 - 110 mEq/L [facility] Comment:Heparinized plasma. CO2 25 24 - 32 mEq/L [facility] Comment:Heparinized plasma. 05/20/2008 15:2 1 EST 05/20/2008 15:21 EST Jose Alejandro Castro MD CHEMISTRY & BLOOD GA S ORDERABLES Performing Organization Address [facility] Phone Number [facility] [address] [place] [address] * ELECTROLYTES (05/20/2008 11:47 EST) Sodium 140 136 - 145 mEq/L [facility] Comment:Heparinized plasma. Potassium 4.0 3.5 - 5.0 mEq/L [facility] Comment:Heparinized plasma. Chloride 100 96 - 110 mEq/L [facility] Comment:Heparinized plasma. CO2 27 24 - 32 mEq/L [facility] Comment:Heparinized plasma. 05/20/2008 11:4 7 EST 05/20/2008 12:26 EST Jose Alejandro Castro MD CHEMISTRY & BLOOD GA S ORDERABLES Performing Organization Address [facility] Phone Number [facility] [address] [place] [address] * PREALBUMIN (05/20/2008 9:38 EST) Prealbumin 33 mg/dl [facility] 05/20/2008 9:38 EST 05/20/2008 9:38 EST Jose Alejandro Castro MD CHEMISTRY & BLOOD GA S ORDERABLES Performing Organization Address [facility] Co de Phone Number [facility] [address] [place] [address] * (ABNORMAL) ELECTROLYTES (05/20/2008 9:38 EST) Sodium 133(L) 136 - 145 mEq/L [facility] Potassium 4.8 3.5 - 5.0 mEq/L [facility] Chloride 96 96 - 110 mEq/L [facility] CO2 28 24 - 32 mEq/L [facility] 05/20/2008 9:38 EST 05/20/2008 9:38 EST Jose Alejandro Castro MD CHEMISTRY & BLOOD GA S ORDERABLES Performing Organization Address [facility] Co de Phone Number [facility] [address] [place] [address] * TESTS ADDED BY PHONE (05/20/2008 9:38 EST) Tests to be added [facility] Who Called [facility] Location Code [id number] [facility] 05/20/2008 9:38 EST 05/20/2008 9:38 EST Jose Alejandro Castro MD CHEMISTRY & BLOOD GA S ORDERABLES Performing Organization Address City/[facility] Co de Phone Number [facility] [address] [place] [address] * (ABNORMAL) ELECTROLYTES (05/20/2008 5:50 EST) Sodium 128(L) 136 - 145 mEq/L [facility] Potassium 4.5 3.5 - 5.0 mEq/L [facility] Chloride 93(L) 96 - 110 mEq/L [facility] CO2 26 24 - 32 mEq/L [facility] 05/20/2008 5:50 EST 05/20/2008 5:58 EST Jose Alejandro Castro MD CHEMISTRY & BLOOD GA S ORDERABLES Performing Organization Address [facility] de Phone Number [facility] [address] [place] [address] * (ABNORMAL) ELECTROLYTES (05/20/2008 2:50 EST) Sodium 127(L) 136 - 145 mEq/L [facility] Potassium 4.6 3.5 - 5.0 mEq/L [facility] Chloride 92(L) 96 - 110 mEq/L [facility] CO2 26 24 - 32 mEq/L [facility] 05/20/2008 2:50 EST 05/20/2008 2:51 EST Jose Alejandro Castro MD CHEMISTRY & BLOOD GA S ORDERABLES Performing Organization Address [facility] Co de Phone Number [facility] [address] [place] [address] * CREATININE (05/20/2008 0:00 EST) Creatinine 0.70 0.6 - 1.2 mg/dl [facility] GFR, Calculated Age <18 ml/min/1.7 3m2 [facility] 05/20/2008 05/20/2008 0:1 4 EST Jose Alejandro Castro MD CHEMISTRY & BLOOD GA S ORDERABLES Performing Organization Address [facility] de Phone Number [facility] [address] [place] [address] * BUN (05/20/2008 0:00 EST) BUN 15 8 - 21 mg/dl [facility] 05/20/2008 05/20/2008 0:1 4 EST Jose Alejandro Castro MD CHEMISTRY & BLOOD GA S ORDERABLES Performing Organization Address [facility] de Phone Number [facility] [address] [place] [address] * (ABNORMAL) ELECTROLYTES (05/20/2008 0:00 EST) Sodium 127(L) 136 - 145 mEq/L [facility] Potassium 4.7 3.5 - 5.0 mEq/L [facility] Chloride 92(L) 96 - 110 mEq/L [facility] CO2 26 24 - 32 mEq/L [facility] 05/20/2008 05/20/2008 0:1 4 EST Jose Alejandro Castro MD CHEMISTRY & BLOOD GA S ORDERABLES Performing Organization Address [facility] Phone Number [facility] [address] [place] [address] * (ABNORMAL) ELECTROLYTES (05/19/2008 18:10 EST) Sodium 130(L) 136 - 145 mEq/L [facility] Potassium 4.2 3.5 - 5.0 mEq/L [facility] Chloride 92(L) 96 - 110 mEq/L [facility] CO2 26 24 - 32 mEq/L [facility] 05/19/2008 18:1 0 EST 05/19/2008 18:15 EST Jose Alejandro Castro MD CHEMISTRY & BLOOD GA S ORDERABLES Performing Organization Address [facility] Co de Phone Number [facility] [address] [place] [address] * (ABNORMAL) ELECTROLYTES (05/19/2008 13:40 EST) Sodium 130(L) 136 - 145 mEq/L [facility] Potassium 3.8 3.5 - 5.0 mEq/L [facility] Chloride 91(L) 96 - 110 mEq/L [facility] CO2 27 24 - 32 mEq/L [facility] 05/19/2008 13:4 0 EST 05/19/2008 13:45 EST Jose Alejandro Castro MD CHEMISTRY & BLOOD GA S ORDERABLES Performing Organization Address City/[facility]/ZIP Co de Phone Number [facility] [address] [place] [address] * SODIUM, URINE RANDOM (05/19/2008 12:00 EST) Sodium, Ur 123.0 mEq/L [facility] 05/19/2008 12:0 0 EST 05/19/2008 12:30 EST Jose Alejandro Castro MD URINALYSIS ORDERABLE S Performing Organization Address City/[facility] Co de Phone Number [facility] [address] [place] [address] * PORTABLE CHEST 1 VIEW (05/19/2008 9:46 EST) Anatomical Region Laterality Modality Other 05/19/2008 9:46 EST Narrative 11/21/2008 10:23 EDT picc placed check tip diabetes pneumonia PORTABLE CHEST 1 VIEW ??May 19, 2008 9:46:00 AM Signs and Symptoms: ??picc placed check tip diabetes pneumonia Comparison: May 13, 2008 Findings: Single portable view of the chest demonstrates that the PICC to projects in the area of the right atrium. For optimal placement it would be recommended to withdrawal of the PICC approximately 4 centimeters. This would ensure position within the junction of the SVC and right atrium. The remaining right jugular line is stable. The esophageal catheter was removed. The remainder of the lungs zones are clear which represents interval improvement. The cardiac silhouette is within normal limits. Impression: 1. The PICC tip projecting in the right atrium would recommend withdrawing take approximately 4-5 cm to region of SVC/ right atrium junction. 2. Interval improvement. I have personally reviewed the images and the above interpretation and agree with the findings. Procedure Note Carlito Goodwin MD / Mera Batres MD, MD - 11/21/2008 picc placed check tip diabetes pneumonia PORTABLE CHEST 1 VIEW May 19, 2008 9:46:00 AM Signs and Symptoms: picc placed check tip diabetes pneumonia Comparison: May 13, 2008 Findings: Single portable view of the chest demonstrates that the PICC to projects in the area of the right atrium. For optimal placement it would be recommended to withdrawal of the PICC approximately 4 centimeters. This would ensure position within the junction of the SVC and right atrium. The remaining right jugular line is stable. The esophageal catheter was removed. The remainder of the lungs zones are clear which represents interval improvement. The cardiac silhouette is within normal limits. Impression: 1. The PICC tip projecting in the right atrium would recommend withdrawing take approximately 4-5 cm to region of SVC/ right atrium junction. 2. Interval improvement. I have personally reviewed the images and the above interpretation and agree with the findings. Jose Alejandro Castro MD IMG DIAGNOSTIC IMAGI NG ORDERABLES * GLUCOSE, GLUCOMETER (05/19/2008 9:38 EST) Pathologist [facility] Glucose, Fingerstick 80 70 - 100 mg/dl [facility] [employer] Cream Grader ID [id number] Test Performed by Nursing Services [facility] 05/19/2008 9:38 EST 05/20/2008 23:05 EST Jose Alejandro Castro MD CHEMISTRY & BLOOD GA S ORDERABLES Performing Organization Address [facility] Phone Number [facility] [address] [place] [address] * (ABNORMAL) ELECTROLYTES (05/19/2008 9:35 EST) Pathologist [facility] Sodium 126(L) 136 - 145 mEq/L [facility] Comment:Heparinized plasma. Potassium 3.7 3.5 - 5.0 mEq/L [facility] Comment:Heparinized plasma. Chloride 91(L) 96 - 110 mEq/L [facility] Comment:Heparinized plasma. CO2 26 24 - 32 mEq/L [facility] Comment:Heparinized plasma. 05/19/2008 9:35 EST 05/19/2008 9:40 EST Jose Alejandro Castro MD CHEMISTRY & BLOOD GA S ORDERABLES Performing Organization Address [facility] Phone Number [facility] [address] [place] [address] * (ABNORMAL) ELECTROLYTES (05/19/2008 6:00 EST) Sodium 126(L) 136 - 145 mEq/L [facility] Potassium 4.2 3.5 - 5.0 mEq/L [facility] Chloride 90(L) 96 - 110 mEq/L [facility] CO2 26 24 - 32 mEq/L [facility] 05/19/2008 6:00 EST 05/19/2008 6:04 EST Jose Alejandro Castro MD CHEMISTRY & BLOOD GA S ORDERABLES [facility] [address] [place] [address] * GLUCOSE, SERUM (05/19/2008 2:58 EST) Glucose, Serum 72 70 - 100 mg/dl [facility] 05/19/2008 2:58 EST 05/19/2008 2:59 EST Jose Alejandro Castro MD CHEMISTRY & BLOOD GA S ORDERABLES [facility] [address] [place] [address] * CREATININE (05/19/2008 2:58 EST) Creatinine 0.60 0.6 - 1.2 mg/dl [facility] GFR, Calculated Age <18 ml/min/1.7 3m2 [facility] 05/19/2008 2:58 EST 05/19/2008 2:59 EST Jose Alejandro Castro MD CHEMISTRY & BLOOD GA S ORDERABLES [facility] [address] [place] [address] * BUN (05/19/2008 2:58 EST) BUN 9 8 - 21 mg/dl [facility] 05/19/2008 2:58 EST 05/19/2008 2:59 EST Jose Alejandro Castro MD CHEMISTRY & BLOOD GA S ORDERABLES Performing Organization Address [facility] Co de Phone Number [facility] [address] [place] [address] * (ABNORMAL) ELECTROLYTES (05/19/2008 2:58 EST) Sodium 127(L) 136 - 145 mEq/L [facility] Potassium 4.1 3.5 - 5.0 mEq/L [facility] Chloride 91(L) 96 - 110 mEq/L [facility] CO2 27 24 - 32 mEq/L [facility] 05/19/2008 2:58 EST 05/19/2008 2:59 EST Jose Alejandro Castro MD CHEMISTRY & BLOOD GA S ORDERABLES Performing Organization Address [facility] de Phone Number [facility] [address] [place] [address] * OSMOLALITY, URINE (05/18/2008 21:20 EST) Osmolality, Ur 639 MOS/KG [facility] 05/18/2008 21:2 0 EST 05/18/2008 21:23 EST Jose Alejandro Castro MD URINALYSIS ORDERABLE S Performing Organization Address [facility] de Phone Number [facility] [address] [place] [address] * SODIUM, URINE RANDOM (05/18/2008 21:20 EST) Sodium, Ur 289.0 mEq/L [facility] 05/18/2008 21:2 0 EST 05/18/2008 21:23 EST Jose Alejandro Castro MD URINALYSIS ORDERABLE S Performing Organization Address [facility] Co de Phone Number [facility] [address] [place] [address] * POTASSIUM, URINE RANDOM (05/18/2008 21:20 EST) Potassium, Urine 34.4 mEq/L [facility] 05/18/2008 21:2 0 EST 05/18/2008 21:23 EST Jose Alejandro Castro MD URINALYSIS ORDERABLE S Performing Organization Address [facility] de Phone Number [facility] [address] [place] [address] * CREATININE, URINE RANDOM (05/18/2008 21:20 EST) Creatinine, Urn [place] 25.1 mg/dl [facility] 05/18/2008 21:2 0 EST 05/18/2008 21:23 EST Jose Alejandro Castro MD URINALYSIS ORDERABLE S Performing Organization Address [facility] de Phone Number [facility] [address] [place] [address] * CALCIUM, IONIZED (05/18/2008 21:17 EST) Calcium, Ionized 1.17 1.12 - 1.32 mmol/L [facility] staff design engineer ID [id number] Test performed by Chemistry [facility] 05/18/2008 21:1 7 EST 05/18/2008 21:20 EST Jose Alejandro Castro MD CHEMISTRY & BLOOD GA S ORDERABLES Performing Organization Address [facility] Phone Number [facility] [address] [place] [address] * GLUCOSE, SERUM (05/18/2008 21:00 EST) Glucose, Serum 77 70 - 100 mg/dl [facility] 05/18/2008 21:0 0 EST 05/18/2008 21:07 EST Jose Alejandro Castro MD CHEMISTRY & BLOOD GA S ORDERABLES Performing Organization Address [facility] Co de Phone Number [facility] [address] [place] [address] * PHOSPHORUS (05/18/2008 21:00 EST) Phosphorus 3.4 2.7 - 4.7 mg/dl [facility] 05/18/2008 21:0 0 EST 05/18/2008 21:07 EST Jose Alejandro Castro MD CHEMISTRY & BLOOD GA S ORDERABLES Performing Organization Address [facility] Phone Number [facility] [address] [place] [address] * MAGNESIUM (05/18/2008 21:00 EST) Magnesium 1.8 1.7 - 2.8 mg/dl [facility] 05/18/2008 21:0 0 EST 05/18/2008 21:07 EST Jose Alejandro Castro MD CHEMISTRY & BLOOD GA S ORDERABLES Performing Organization Address [facility] Phone Number [facility] [address] [place] [address] * CREATININE (05/18/2008 21:00 EST) Creatinine 0.60 0.6 - 1.2 mg/dl [facility] GFR, Calculated Age <18 ml/min/1.7 3m2 [facility] 05/18/2008 21:0 0 EST 05/18/2008 21:07 EST Jose Alejandro Castro MD CHEMISTRY & BLOOD GA S ORDERABLES Performing Organization Address [facility] Phone Number [facility] [address] [place] [address] * BUN (05/18/2008 21:00 EST) BUN 8 8 - 21 mg/dl [facility] 05/18/2008 21:0 0 EST 05/18/2008 21:07 EST Jose Alejandro Castro MD CHEMISTRY & BLOOD GA S ORDERABLES Performing Organization Address City/[facility] Co de Phone Number [facility] [address] [place] [address] * (ABNORMAL) ELECTROLYTES (05/18/2008 21:00 EST) Sodium 130(L) 136 - 145 mEq/L [facility] Potassium 4.3 3.5 - 5.0 mEq/L [facility] Chloride 93(L) 96 - 110 mEq/L [facility] CO2 28 24 - 32 mEq/L [facility] 05/18/2008 21:0 0 EST 05/18/2008 21:07 EST Jose Alejandro Castro MD CHEMISTRY & BLOOD GA S ORDERABLES Performing Organization Address [facility] de Phone Number [facility] [address] [place] [address] * CALCIUM IONIZED (05/18/2008 21:00 EST) Ionized Calcium Note Sample sent to Lab. [facility] 05/18/2008 21:0 0 EST 05/18/2008 21:07 EST Jose Alejandro Castro MD CHEMISTRY & BLOOD GA S ORDERABLES Performing Organization Address [facility] Co de Phone Number [facility] [address] [place] [address] * GLUCOSE, GLUCOMETER (05/18/2008 15:50 EST) Glucose, Fingerstick 90 70 - 100 mg/dl [facility] Milk And Cream Grader ID [id number] Test Performed by Nursing Services [facility] 05/18/2008 15:5 0 EST 05/18/2008 23:25 EST Jose Alejandro Castro MD CHEMISTRY & BLOOD GA S ORDERABLES Performing Organization Address [facility] de Phone Number [facility] [address] [place] [address] * (ABNORMAL) ELECTROLYTES (05/18/2008 15:48 EST) Sodium 135(L) 136 - 145 mEq/L [facility] Comment:Heparinized plasma. Potassium 4.0 3.5 - 5.0 mEq/L [facility] Comment:Heparinized plasma. Chloride 99 96 - 110 mEq/L [facility] Comment:Heparinized plasma. CO2 27 24 - 32 mEq/L [facility] Comment:Heparinized plasma. 05/18/2008 15:4 8 EST 05/18/2008 16:10 EST Jose Alejandro Castro MD CHEMISTRY & BLOOD GA S ORDERABLES Performing Organization Address [facility] de Phone Number [facility] [address] [place] [address] * GLUCOSE, GLUCOMETER (05/18/2008 9:24 EST) Glucose, Fingerstick 88 70 - 100 mg/dl [facility] Milk And Cream Grader ID [id number] Test Performed by Nursing Services [facility] 05/18/2008 9:24 EST 05/18/2008 23:25 EST Jose Alejandro Castro MD CHEMISTRY & BLOOD GA S ORDERABLES Performing Organization Address [facility] Phone Number [facility] [address] [place] [address] * ELECTROLYTES (05/18/2008 9:20 EST) Sodium 140 136 - 145 mEq/L [facility] Comment:Heparinized plasma. Potassium 3.9 3.5 - 5.0 mEq/L [facility] Comment:Heparinized plasma. Chloride 105 96 - 110 mEq/L [facility] Comment:Heparinized plasma. CO2 26 24 - 32 mEq/L [facility] Comment:Heparinized plasma. 05/18/2008 9:20 EST 05/18/2008 9:30 EST Jose Alejandro Castro MD CHEMISTRY & BLOOD GA S ORDERABLES Performing Organization Address [facility] Phone Number [facility] [address] [place] [address] * GLUCOSE, SERUM (05/18/2008 3:00 EST) Glucose, Serum 97 70 - 100 mg/dl [facility] 05/18/2008 3:00 EST 05/18/2008 3:15 EST Jose Alejandro Castro MD CHEMISTRY & BLOOD GA S ORDERABLES Performing Organization Address [facility] de Phone Number [facility] [address] [place] [address] * CREATININE (05/18/2008 3:00 EST) Creatinine 0.60 0.6 - 1.2 mg/dl [facility] GFR, Calculated Age <18 ml/min/1.7 3m2 [facility] 05/18/2008 3:00 EST 05/18/2008 3:15 EST Jose Alejandro Castro MD CHEMISTRY & BLOOD GA S ORDERABLES Performing Organization Address [facility] Phone Number [facility] [address] [place] [address] * BUN (05/18/2008 3:00 EST) BUN 9 8 - 21 mg/dl [facility] 05/18/2008 3:00 EST 05/18/2008 3:15 EST Jose Alejandro Castro MD CHEMISTRY & BLOOD GA S ORDERABLES Performing Organization Address [facility] de Phone Number [facility] [address] [place] [address] * ELECTROLYTES (05/18/2008 3:00 EST) Sodium 142 136 - 145 mEq/L [facility] Potassium 3.5 3.5 - 5.0 mEq/L [facility] Chloride 105 96 - 110 mEq/L [facility] CO2 26 24 - 32 mEq/L [facility] 05/18/2008 3:00 EST 05/18/2008 3:15 EST Jose Alejandro Castro MD CHEMISTRY & BLOOD GA S ORDERABLES Performing Organization Address [facility] Co de Phone Number [facility] [address] [place] [address] * GLUCOSE, SERUM (05/17/2008 21:10 EST) Glucose, Serum 82 70 - 100 mg/dl [facility] 05/17/2008 21:1 0 EST 05/17/2008 21:30 EST Jose Alejandro Castro MD CHEMISTRY & BLOOD GA S ORDERABLES Performing Organization Address [facility] Co de Phone Number [facility] [address] [place] [address] * ELECTROLYTES (05/17/2008 21:10 EST) Sodium 142 136 - 145 mEq/L [facility] Potassium 4.1 3.5 - 5.0 mEq/L [facility] Chloride 105 96 - 110 mEq/L [facility] CO2 27 24 - 32 mEq/L [facility] 05/17/2008 21:1 0 EST 05/17/2008 21:30 EST Jose Alejandro Castro MD CHEMISTRY & BLOOD GA S ORDERABLES Performing Organization Address [facility] Phone Number [facility] [address] [place] [address] * GLUCOSE, SERUM (05/17/2008 15:00 EST) Glucose, Serum 86 70 - 100 mg/dl [facility] 05/17/2008 15:0 0 EST 05/17/2008 15:16 EST Jose Alejandro Castro MD CHEMISTRY & BLOOD GA S ORDERABLES Performing Organization Address [facility] Co hi Phone Number [facility] [address] [place] [address] * ELECTROLYTES (05/17/2008 15:00 EST) Sodium 137 136 - 145 mEq/L [facility] Potassium 4.1 3.5 - 5.0 mEq/L [facility] Chloride 99 96 - 110 mEq/L [facility] CO2 27 24 - 32 mEq/L [facility] 05/17/2008 15:0 0 EST 05/17/2008 15:16 EST Jose Alejandro Castro MD CHEMISTRY & BLOOD GA S ORDERABLES Performing Organization Address [facility] Co de Phone Number [facility] [address] [place] [address] * (ABNORMAL) T4 FREE (05/17/2008 9:00 EST) Free T4 0.7(L) 0.8 - 1.5 ng/dL [facility] 05/17/2008 9:00 EST 05/17/2008 9:29 EST Jose Alejandro Castro MD CHEMISTRY & BLOOD GA S ORDERABLES Performing Organization Address [facility] Co de Phone Number [facility] [address] [place] [address] * TESTS ADDED BY PHONE (05/17/2008 9:00 EST) Tests to be added FT4 [facility] Who Called [facility] Location Code M3 [facility] 05/17/2008 9:00 EST 05/17/2008 9:29 EST Jose Alejandro Castro MD CHEMISTRY & BLOOD GA S ORDERABLES Performing Organization Address [facility] Co de Phone Number [facility] [address] [place] [address] * GLUCOSE, SERUM (05/17/2008 9:00 EST) Glucose, Serum 87 70 - 100 mg/dl [facility] Comment:Heparinized plasma. 05/17/2008 9:00 EST 05/17/2008 9:29 EST Jose Alejandro Castro MD CHEMISTRY & BLOOD GA S ORDERABLES Performing Organization Address [facility] Co de Phone Number [facility] [address] [place] [address] * (ABNORMAL) ELECTROLYTES (05/17/2008 9:00 EST) Sodium 135(L) 136 - 145 mEq/L [facility] Comment:Heparinized plasma. Potassium 3.6 3.5 - 5.0 mEq/L [facility] Comment:Heparinized plasma. Chloride 100 96 - 110 mEq/L [facility] Comment:Heparinized plasma. CO2 23(L) 24 - 32 mEq/L [facility] Comment:Heparinized plasma. 05/17/2008 9:00 EST 05/17/2008 9:29 EST Jose Alejandro Castro MD CHEMISTRY & BLOOD GA S ORDERABLES Performing Organization Address [facility] Co de Phone Number [facility] [address] [place] [address] * HOLD GREEN TOP (05/17/2008 5:48 EST) Hold Green Top Hold for further testing. Specimen will be held for 5 days. [facility] 05/17/2008 5:48 EST 05/17/2008 5:48 EST Jose Alejandro Castro MD LAB INFO SERVICE AND SUPPORT & PHONE RESULT Performing Organization Address [facility] Co de Phone Number [facility] [address] [place] [address] * HOLD PURPLE TOP (05/17/2008 5:46 EST) Hold Purple Top EDTA for hematology will be discarded after 48 hours, differential not available after 12 hours. [facility] 05/17/2008 5:46 EST 05/17/2008 5:46 EST Jose Alejandro Castro MD LAB INFO SERVICE AND SUPPORT & PHONE RESULT Performing Organization Address [facility] Co de Phone Number [facility] [address] [place] [address] * (ABNORMAL) HEMAGRAM (05/17/2008 5:46 EST) Pathologist [facility] WBC 9.92 4.6 - 11.2 K/cmm [facility] RBC 3.69(L) 4.50 - 5.30 M/cmm [facility] Hemoglobin 9.9(L) 13.0 - 16.0 gm/dl [facility] HCT 29.2(L) 37.0 - 49.0 % [facility] MCV 79 78 - 98 fl [facility] MCH 26.7 pg [facility] MCHC 33.7 gm/dl [facility] PLT 638(H) 156 - 312 K/cmm [facility] RDW-CV 17.2 % [facility] 05/17/2008 5:46 EST 05/17/2008 5:46 EST Jose Alejandro Castro MD HEMATOLOGY & PF4 ORD ERABLES Performing Organization Address [facility] Co de Phone Number [facility] [address] [place] [address] * GLUCOSE, SERUM (05/17/2008 5:46 EST) Glucose, Serum 76 70 - 100 mg/dl [facility] 05/17/2008 5:46 EST 05/17/2008 5:46 EST Jose Alejandro Castro MD CHEMISTRY & BLOOD GA S ORDERABLES Performing Organization Address [facility] Co de Phone Number [facility] [address] [place] [address] * CREATININE (05/17/2008 5:46 EST) Creatinine 0.60 0.6 - 1.2 mg/dl [facility] GFR, Calculated Age <18 ml/min/1.7 3m2 [facility] 05/17/2008 5:46 EST 05/17/2008 5:46 EST Jose Alejandro Castro MD CHEMISTRY & BLOOD GA S ORDERABLES Performing Organization Address [facility] Co de Phone Number [facility] [address] [place] [address] * (ABNORMAL) BUN (05/17/2008 5:46 EST) BUN 7(L) 8 - 21 mg/dl [facility] 05/17/2008 5:46 EST 05/17/2008 5:46 EST Jose Alejandro Castro MD CHEMISTRY & BLOOD GA S ORDERABLES Performing Organization Address [facility] Co de Phone Number [facility] [address] [place] [address] * ELECTROLYTES (05/17/2008 5:46 EST) Sodium 137 136 - 145 mEq/L [facility] Potassium 4.0 3.5 - 5.0 mEq/L [facility] Chloride 101 96 - 110 mEq/L [facility] CO2 26 24 - 32 mEq/L [facility] 05/17/2008 5:46 EST 05/17/2008 5:46 EST Jose Alejandro Castor MD CHEMISTRY & BLOOD GA S ORDERABLES Performing Organization Address [facility] de Phone Number [facility] [address] [place] [address] * GLUCOSE, SERUM (05/17/2008 2:09 EST) Glucose, Serum 79 70 - 100 mg/dl [facility] 05/17/2008 2:09 EST 05/17/2008 2:09 EST Jose Alejandro Castro MD CHEMISTRY & BLOOD GA S ORDERABLES Performing Organization Address [facility] de Phone Number [facility] [address] [place] [address] * ELECTROLYTES (05/17/2008 2:09 EST) Sodium 140 136 - 145 mEq/L [facility] Potassium 4.5 3.5 - 5.0 mEq/L [facility] Chloride 105 96 - 110 mEq/L [facility] CO2 26 24 - 32 mEq/L [facility] 05/17/2008 2:09 EST 05/17/2008 2:09 EST Jose Alejandro Castro MD CHEMISTRY & BLOOD GA S ORDERABLES Performing Organization Address City/[facility]/ZIP Co de Phone Number [facility] [address] [place] [address] * GLUCOSE, SERUM (05/16/2008 22:09 EST) Glucose, Serum 92 70 - 100 mg/dl [facility] 05/16/2008 22:0 9 EST 05/16/2008 22:09 EST Jose Alejandro Castro MD CHEMISTRY & BLOOD GA S ORDERABLES Performing Organization Address [facility] Co de Phone Number [facility] [address] [place] [address] * ELECTROLYTES (05/16/2008 22:09 EST) Sodium 144 136 - 145 mEq/L [facility] Potassium 3.8 3.5 - 5.0 mEq/L [facility] Chloride 108 96 - 110 mEq/L [facility] CO2 26 24 - 32 mEq/L [facility] 05/16/2008 22:0 9 EST 05/16/2008 22:09 EST Jose Alejandro Castro MD CHEMISTRY & BLOOD GA S ORDERABLES Performing Organization Address [facility] Co de Phone Number [facility] [address] [place] [address] * (ABNORMAL) GLUCOSE, SERUM (05/16/2008 18:53 EST) Glucose, Serum 106(H) 70 - 100 mg/dl [facility] 05/16/2008 18:5 3 EST 05/16/2008 18:54 EST Jose Alejandro Castro MD CHEMISTRY & BLOOD GA S ORDERABLES Performing Organization Address [facility] Co de Phone Number [facility] [address] [place] [address] * ELECTROLYTES (05/16/2008 18:53 EST) Sodium 138 136 - 145 mEq/L [facility] Potassium 3.7 3.5 - 5.0 mEq/L [facility] Chloride 102 96 - 110 mEq/L [facility] CO2 26 24 - 32 mEq/L [facility] 05/16/2008 18:5 3 EST 05/16/2008 18:54 EST Jose Alejandro Castro MD CHEMISTRY & BLOOD GA S ORDERABLES Performing Organization Address [facility] Co de Phone Number [facility] [address] [place] [address] * (ABNORMAL) GLUCOSE, SERUM (05/16/2008 16:00 EST) Glucose, Serum 63(L) 70 - 100 mg/dl [facility] 05/16/2008 16:0 0 EST 05/16/2008 16:27 EST Jose Alejandro Castro MD CHEMISTRY & BLOOD GA S ORDERABLES Performing Organization Address [facility] Phone Number [facility] [address] [place] [address] * (ABNORMAL) ELECTROLYTES (05/16/2008 16:00 EST) Sodium 134(L) 136 - 145 mEq/L [facility] Potassium 3.9 3.5 - 5.0 mEq/L [facility] Chloride 100 96 - 110 mEq/L [facility] CO2 25 24 - 32 mEq/L [facility] 05/16/2008 16:0 0 EST 05/16/2008 16:27 EST Jose Alejandro Castro MD CHEMISTRY & BLOOD GA S ORDERABLES Performing Organization Address [facility] Co de Phone Number [facility] [address] [place] [address] * (ABNORMAL) GLUCOSE, SERUM (05/16/2008 12:59 EST) Glucose, Serum 101(H) 70 - 100 mg/dl [facility] 05/16/2008 12:5 9 EST 05/16/2008 12:59 EST Jose Alejandro Castro MD CHEMISTRY & BLOOD GA S ORDERABLES Performing Organization Address [facility] Co de Phone Number [facility] [address] [place] [address] * (ABNORMAL) ELECTROLYTES (05/16/2008 12:59 EST) Sodium 135(L) 136 - 145 mEq/L [facility] Potassium 4.0 3.5 - 5.0 mEq/L [facility] Chloride 102 96 - 110 mEq/L [facility] CO2 22(L) 24 - 32 mEq/L [facility] 05/16/2008 12:5 9 EST 05/16/2008 12:59 EST Jose Alejandro Castro MD CHEMISTRY & BLOOD GA S ORDERABLES Performing Organization Address [facility] Phone Number [facility] [address] [place] [address] * GLUCOSE, SERUM (05/16/2008 9:58 EST) Glucose, Serum 82 70 - 100 mg/dl [facility] 05/16/2008 9:58 EST 05/16/2008 9:58 EST Jose Alejandro Castro MD CHEMISTRY & BLOOD GA S ORDERABLES Performing Organization Address [facility] Co hi Phone Number [facility] [address] [place] [address] * (ABNORMAL) ELECTROLYTES (05/16/2008 9:58 EST) Sodium 138 136 - 145 mEq/L [facility] Potassium 4.4 3.5 - 5.0 mEq/L [facility] Chloride 106 96 - 110 mEq/L [facility] CO2 22(L) 24 - 32 mEq/L [facility] 05/16/2008 9:58 EST 05/16/2008 9:58 EST Jose Alejandro Castro MD CHEMISTRY & BLOOD GA S ORDERABLES [facility] [address] [place] [address] * GLUCOSE, SERUM (05/16/2008 6:50 EST) Glucose, Serum 77 70 - 100 mg/dl [facility] 05/16/2008 6:50 EST 05/16/2008 7:05 EST Jose Alejandro Castro MD CHEMISTRY & BLOOD GA S ORDERABLES Performing Organization Address City/[facility]/ZIP Co de Phone Number [facility] [address] [place] [address] * ELECTROLYTES (05/16/2008 6:50 EST) Sodium 138 136 - 145 mEq/L [facility] Potassium 4.2 3.5 - 5.0 mEq/L [facility] Chloride 105 96 - 110 mEq/L [facility] CO2 26 24 - 32 mEq/L [facility] 05/16/2008 6:50 EST 05/16/2008 7:05 EST Jose Alejandro Castro MD CHEMISTRY & BLOOD GA S ORDERABLES Performing Organization Address City/[facility]/ZIP Co de Phone Number [facility] [address] [place] [address] * TESTS ADDED BY PHONE (05/16/2008 4:15 EST) Tests to be added HIVS,HBAG,HC AB CHARGE TO [id number] [facility] Who Called [facility] Location Code [facility] 05/16/2008 4:15 EST 05/16/2008 4:23 EST Jose Alejandro Castro MD CHEMISTRY & BLOOD GA S ORDERABLES Performing Organization Address City/[facility]/ZIP Co de Phone Number [facility] [address] [place] [address] * TESTS ADDED BY PHONE (05/16/2008 4:15 EST) Tests to be added CARLOS HAY TO [facility] [id number] [facility] Who Called [email or web address] Location Code [facility] 05/16/2008 4:15 EST 05/16/2008 4:23 EST Jose Alejandro Castro MD CHEMISTRY & BLOOD GA S ORDERABLES Performing Organization Address [facility] Co de Phone Number [facility] [address] [place] [address] * (ABNORMAL) TOTAL PROTEIN (05/16/2008 4:15 EST) Total Protein 5.5(L) 6.3 - 8.6 g/dl [facility] 05/16/2008 4:15 EST 05/16/2008 4:23 EST Jose Alejandro Castro MD CHEMISTRY & BLOOD GA S ORDERABLES Performing Organization Address [facility] Co de Phone Number [facility] [address] [place] [address] * GLUCOSE, SERUM (05/16/2008 4:15 EST) Glucose, Serum 100 70 - 100 mg/dl [facility] 05/16/2008 4:15 EST 05/16/2008 4:23 EST Jose Alejandro Castro MD CHEMISTRY & BLOOD GA S ORDERABLES Performing Organization Address [facility] Co de Phone Number [facility] [address] [place] [address] * CREATININE (05/16/2008 4:15 EST) Creatinine 0.60 0.6 - 1.2 mg/dl [facility] GFR, Calculated Age <18 ml/min/1.7 3m2 [facility] 05/16/2008 4:15 EST 05/16/2008 4:23 EST Jose Alejandro Castro MD CHEMISTRY & BLOOD GA S ORDERABLES Performing Organization Address City/[facility]/ZIP Co de Phone Number [facility] [address] [place] [address] * BUN (05/16/2008 4:15 EST) BUN 9 8 - 21 mg/dl [facility] 05/16/2008 4:15 EST 05/16/2008 4:23 EST Jose Alejandro Castro MD CHEMISTRY & BLOOD GA S ORDERABLES Performing Organization Address City/[facility] Co de Phone Number [facility] [address] [place] [address] * TOTAL & DIRECT BILIRUBIN (05/16/2008 4:15 EST) Conjugated Bilirubin 0.0 0.0 - 0.3 mg/dl [facility] Unconjugated Bilirubin 0.7 0.1 - 1.1 mg/dl [facility] Bilirubin, Total 0.7 0.0 - 1.4 mg/dl [facility] 05/16/2008 4:15 EST 05/16/2008 4:23 EST Jose Alejandro Castro MD CHEMISTRY & BLOOD GA S ORDERABLES Performing Organization Address [facility] Co de Phone Number [facility] [address] [place] [address] * AST (05/16/2008 4:15 EST) AST 25 15 - 46 U/L [facility] 05/16/2008 4:15 EST 05/16/2008 4:23 EST Jose Alejandro Castro MD CHEMISTRY & BLOOD GA S ORDERABLES Performing Organization Address City/[facility]/ZIP Co de Phone Number [facility] [address] [place] [address] * ALT (05/16/2008 4:15 EST) ALT 41 0 - 45 U/L [facility] 05/16/2008 4:15 EST 05/16/2008 4:23 EST Jose Alejandro Castro MD CHEMISTRY & BLOOD GA S ORDERABLES Performing Organization Address [facility] Co de Phone Number [facility] [address] [place] [address] * ALKALINE PHOSPHATASE (05/16/2008 4:15 EST) Alkaline Phosphatase 96 65 - 260 U/L [facility] 05/16/2008 4:15 EST 05/16/2008 4:23 EST Jose Alejandro Castro MD CHEMISTRY & BLOOD GA S ORDERABLES Performing Organization Address [facility] Phone Number [facility] [address] [place] [address] * (ABNORMAL) ALBUMIN (05/16/2008 4:15 EST) Albumin 2.7(L) 3.0 - 5.5 g/dl [facility] 05/16/2008 4:15 EST 05/16/2008 4:23 EST Jose Alejandro Castro MD CHEMISTRY & BLOOD GA S ORDERABLES Performing Organization Address [facility] Phone Number [facility] [address] [place] [address] * ELECTROLYTES (05/16/2008 4:15 EST) Sodium 138 136 - 145 mEq/L [facility] Potassium 4.3 3.5 - 5.0 mEq/L [facility] Chloride 106 96 - 110 mEq/L [facility] CO2 25 24 - 32 mEq/L [facility] 05/16/2008 4:15 EST 05/16/2008 4:23 EST Jose Alejandro Castro MD CHEMISTRY & BLOOD GA S ORDERABLES Performing Organization Address [facility] Co de Phone Number [facility] [address] [place] [address] * GLUCOSE, SERUM (05/16/2008 1:05 EST) Glucose, Serum 85 70 - 100 mg/dl [facility] 05/16/2008 1:05 EST 05/16/2008 1:32 EST Jose Alejandro Castro MD CHEMISTRY & BLOOD GA S ORDERABLES Performing Organization Address [facility] Co de Phone Number [facility] [address] [place] [address] * ELECTROLYTES (05/16/2008 1:05 EST) Sodium 140 136 - 145 mEq/L [facility] Potassium 4.0 3.5 - 5.0 mEq/L [facility] Chloride 107 96 - 110 mEq/L [facility] CO2 26 24 - 32 mEq/L [facility] 05/16/2008 1:05 EST 05/16/2008 1:32 EST Jose Alejandro Castro MD CHEMISTRY & BLOOD GA S ORDERABLES Performing Organization Address City/[facility]/ZIP Co de Phone Number [facility] [address] [place] [address] * GLUCOSE, SERUM (05/15/2008 22:35 EST) Glucose, Serum 70 70 - 100 mg/dl [facility] 05/15/2008 22:3 5 EST 05/15/2008 22:43 EST Jose Alejandro Castro MD CHEMISTRY & BLOOD GA S ORDERABLES Performing Organization Address City/[facility] Co de Phone Number [facility] [address] [place] [address] * ELECTROLYTES (05/15/2008 22:35 EST) Sodium 140 136 - 145 mEq/L [facility] Potassium 4.8 3.5 - 5.0 mEq/L [facility] Chloride 106 96 - 110 mEq/L [facility] CO2 26 24 - 32 mEq/L [facility] 05/15/2008 22:3 5 EST 05/15/2008 22:43 EST Jose Alejandro Castro MD CHEMISTRY & BLOOD GA S ORDERABLES Performing Organization Address [facility] de Phone Number [facility] [address] [place] [address] * GLUCOSE, SERUM (05/15/2008 19:35 EST) Glucose, Serum 87 70 - 100 mg/dl [facility] 05/15/2008 19:3 5 EST 05/15/2008 19:38 EST Jose Alejandro Castro MD CHEMISTRY & BLOOD GA S ORDERABLES Performing Organization Address [facility] de Phone Number [facility] [address] [place] [address] * ELECTROLYTES (05/15/2008 19:35 EST) Sodium 137 136 - 145 mEq/L [facility] Potassium 4.2 3.5 - 5.0 mEq/L [facility] Chloride 101 96 - 110 mEq/L [facility] CO2 28 24 - 32 mEq/L [facility] 05/15/2008 19:3 5 EST 05/15/2008 19:38 EST Jose Alejandro Castro MD CHEMISTRY & BLOOD GA S ORDERABLES Performing Organization Address [facility] Phone Number [facility] [address] [place] [address] * XRAY FEEDING TUBE PLACEMENT (05/15/2008 18:28 EST) Anatomical Region Laterality Modality Other 05/15/2008 18:2 8 EST Narrative 11/21/2008 9:41 EDT 17 yo male w ndt for medication antibiotic administration, repositioned after pt pulled tube out 12 in reassess position FEEDING TUBE PLACEMENT ??May 15, 2008 6:28:00 PM Signs and Symptoms: ??17 yo male w ndt for medication antibiotic administration, repositioned after pt pulled tube out 12 in reassess position Findings: Feeding tube is seen its tip in the gastric antrum. Central venous catheter has its tip in the right atrium. Procedure Note Sukhi Menard MD - 11/21/2008 17 yo male w ndt for medication antibiotic administration, repositioned after pt pulled tube out 12 in reassess position FEEDING TUBE PLACEMENT May 15, 2008 6:28:00 PM Signs and Symptoms: 17 yo male w ndt for medication antibiotic administration, repositioned after pt pulled tube out 12 in reassess position Findings: Feeding tube is seen its tip in the gastric antrum. Central venous catheter has its tip in the right atrium. Chinyere Blount MD IMG DIAGNOSTIC IM AGING ORDERABLES * GLUCOSE, GLUCOMETER (05/15/2008 17:29 EST) Glucose, Fingerstick 90 70 - 100 mg/dl [facility] [employer] [id number] Test Performed by Nursing Services [facility] 05/15/2008 17:2 9 EST 05/15/2008 23:00 EST Jose Alejandro Castro MD CHEMISTRY & BLOOD GA S ORDERABLES Performing Organization Address [facility] de Phone Number [facility] [address] [place] [address] * (ABNORMAL) GLUCOSE, SERUM (05/15/2008 16:32 EST) Glucose, Serum 68(L) 70 - 100 mg/dl [facility] 05/15/2008 16:3 2 EST 05/15/2008 16:32 EST Jose Alejandro Castro MD CHEMISTRY & BLOOD GA S ORDERABLES Performing Organization Address [facility] de Phone Number [facility] [address] [place] [address] * (ABNORMAL) ELECTROLYTES (05/15/2008 16:32 EST) Sodium 130(L) 136 - 145 mEq/L [facility] Potassium 4.4 3.5 - 5.0 mEq/L [facility] Chloride 96 96 - 110 mEq/L [facility] CO2 26 24 - 32 mEq/L [facility] 05/15/2008 16:3 2 EST 05/15/2008 16:32 EST Jose Alejandro Castro MD CHEMISTRY & BLOOD GA S ORDERABLES Performing Organization Address [facility] Co de Phone Number [facility] [address] [place] [address] * (ABNORMAL) ELECTROLYTES (05/15/2008 13:28 EST) Sodium 128(L) 136 - 145 mEq/L [facility] Comment:Heparinized plasma. Potassium 4.1 3.5 - 5.0 mEq/L [facility] Comment:Heparinized plasma. Chloride 93(L) 96 - 110 mEq/L [facility] Comment:Heparinized plasma. CO2 25 24 - 32 mEq/L [facility] Comment:Heparinized plasma. 05/15/2008 13:2 8 EST 05/15/2008 13:28 EST Jose Alejandro Castro MD CHEMISTRY & BLOOD GA S ORDERABLES Performing Organization Address [facility] Co de Phone Number [facility] [address] [place] [address] * GLUCOSE, GLUCOMETER (05/15/2008 13:26 EST) Glucose, Fingerstick 70 70 - 100 mg/dl [facility] [employer] [place] [id number] Test Performed by Nursing Services [facility] 05/15/2008 13:2 6 EST 05/15/2008 23:00 EST Jose Alejandro Castro MD CHEMISTRY & BLOOD GA S ORDERABLES Performing Organization Address [facility] Co de Phone Number [facility] [address] [place] [address] * (ABNORMAL) ELECTROLYTES (05/15/2008 10:05 EST) Sodium 125(L) 136 - 145 mEq/L [facility] Potassium 4.2 3.5 - 5.0 mEq/L [facility] Chloride 91(L) 96 - 110 mEq/L [facility] CO2 26 24 - 32 mEq/L [facility] 05/15/2008 10:0 5 EST 05/15/2008 10:05 EST Jose Alejandro Castro MD CHEMISTRY & BLOOD GA S ORDERABLES Performing Organization Address [facility] de Phone Number [facility] [address] [place] [address] * GLUCOSE, GLUCOMETER (05/15/2008 10:00 EST) Glucose, Fingerstick 99 70 - 100 mg/dl [facility] [employer] [place] [id number] Test Performed by Nursing Services [facility] 05/15/2008 10:0 0 EST 05/15/2008 23:00 EST Jose Alejandro Castro MD CHEMISTRY & BLOOD GA S ORDERABLES Performing Organization Address [facility] Phone Number [facility] [address] [place] [address] * (ABNORMAL) GLUCOSE, GLUCOMETER (05/15/2008 8:35 EST) Glucose, Fingerstick 113(H) 70 - 100 mg/dl [facility] [employer] [place] [id number] Test Performed by Nursing Services [facility] 05/15/2008 8:35 EST 05/15/2008 23:00 EST Jose Alejandro Castro MD CHEMISTRY & BLOOD GA S ORDERABLES Performing Organization Address [facility] de Phone Number [facility] [address] [place] [address] * OSMOLALITY, URINE (05/15/2008 8:09 EST) Osmolality, Ur 298 MOS/KG [facility] 05/15/2008 8:09 EST 05/15/2008 8:09 EST Jose Alejandro Castro MD URINALYSIS ORDERABLE S Performing Organization Address [facility] Co de Phone Number [facility] [address] [place] [address] * SODIUM, URINE RANDOM (05/15/2008 8:09 EST) Sodium, Ur 133.0 mEq/L [facility] 05/15/2008 8:09 EST 05/15/2008 8:09 EST Jose Alejandro Castro MD URINALYSIS ORDERABLE S Performing Organization Address [facility] de Phone Number [facility] [address] [place] [address] * POTASSIUM, URINE RANDOM (05/15/2008 8:09 EST) Potassium, Urine 6.4 mEq/L [facility] 05/15/2008 8:09 EST 05/15/2008 8:09 EST Jose Alejandro Castro MD URINALYSIS ORDERABLE S Performing Organization Address [facility] Co de Phone Number [facility] [address] [place] [address] * CREATININE, URINE RANDOM (05/15/2008 8:09 EST) Creatinine, Urn [place] 12.8 mg/dl [facility] 05/15/2008 8:09 EST 05/15/2008 8:09 EST Jose Alejandro Castro MD URINALYSIS ORDERABLE S Performing Organization Address [facility] Co de Phone Number [facility] [address] [place] [address] * (ABNORMAL) ALBUMIN (05/15/2008 6:40 EST) Albumin 2.7(L) 3.0 - 5.5 g/dl [facility] 05/15/2008 6:40 EST 05/15/2008 7:00 EST Jose Alejandro Castro MD CHEMISTRY & BLOOD GA S ORDERABLES Performing Organization Address [facility] Co de Phone Number [facility] [address] [place] [address] * (ABNORMAL) GLUCOSE, SERUM (05/15/2008 6:40 EST) Glucose, Serum 65(L) 70 - 100 mg/dl [facility] 05/15/2008 6:40 EST 05/15/2008 7:00 EST Jose Alejandro Castro MD CHEMISTRY & BLOOD GA S ORDERABLES Performing Organization Address [facility] de Phone Number [facility] [address] [place] [address] * (ABNORMAL) PHOSPHORUS (05/15/2008 6:40 EST) Phosphorus 2.4(L) 2.7 - 4.7 mg/dl [facility] 05/15/2008 6:40 EST 05/15/2008 7:00 EST Jose Alejandro Castro MD CHEMISTRY & BLOOD GA S ORDERABLES Performing Organization Address [facility] de Phone Number [facility] [address] [place] [address] * (ABNORMAL) MAGNESIUM (05/15/2008 6:40 EST) Magnesium 1.5(L) 1.7 - 2.8 mg/dl [facility] 05/15/2008 6:40 EST 05/15/2008 7:00 EST Jose Alejandro Castro MD CHEMISTRY & BLOOD GA S ORDERABLES Performing Organization Address [facility] de Phone Number [facility] [address] [place] [address] * (ABNORMAL) CALCIUM (05/15/2008 6:40 EST) Calcium 7.5(L) 8.5 - 10.5 mg/dl [facility] Calculated Calcium 9.2 8.5 - 10.5 mg/dl [facility] 05/15/2008 6:40 EST 05/15/2008 7:00 EST Jose Alejandro Castro MD CHEMISTRY & BLOOD GA S ORDERABLES Performing Organization Address City/[facility] Co de Phone Number [facility] [address] [place] [address] * (ABNORMAL) ELECTROLYTES (05/15/2008 6:40 EST) Sodium 123(LL) 136 - 145 mEq/L [facility] Comment:Sample retested, res ult confirmed Potassium 4.1 3.5 - 5.0 mEq/L [facility] Chloride 89(L) 96 - 110 mEq/L [facility] CO2 27 24 - 32 mEq/L [facility] 05/15/2008 6:40 EST 05/15/2008 7:00 EST Jose Alejandro Castro MD CHEMISTRY & BLOOD GA S ORDERABLES Performing Organization Address [facility] de Phone Number [facility] [address] [place] [address] * GLUCOSE, SERUM (05/15/2008 3:55 EST) Glucose, Serum 89 70 - 100 mg/dl [facility] 05/15/2008 3:55 EST 05/15/2008 4:03 EST Jose Alejandro Castro MD CHEMISTRY & BLOOD GA S ORDERABLES Performing Organization Address [facility] Co de Phone Number [facility] [address] [place] [address] * (ABNORMAL) CREATININE (05/15/2008 3:55 EST) Creatinine 0.50(L) 0.6 - 1.2 mg/dl [facility] GFR, Calculated Age <18 ml/min/1.7 3m2 [facility] 05/15/2008 3:55 EST 05/15/2008 4:03 EST Jose Alejandro Castro MD CHEMISTRY & BLOOD GA S ORDERABLES Performing Organization Address City/[facility]/ZIP Co de Phone Number [facility] [address] [place] [address] * (ABNORMAL) BUN (05/15/2008 3:55 EST) BUN 6(L) 8 - 21 mg/dl [facility] 05/15/2008 3:55 EST 05/15/2008 4:03 EST Jose Alejandro Castro MD CHEMISTRY & BLOOD GA S ORDERABLES Performing Organization Address [facility] de Phone Number [facility] [address] [place] [address] * (ABNORMAL) ELECTROLYTES (05/15/2008 3:55 EST) Sodium 123(LL) 136 - 145 mEq/L [facility] Comment:Sample retested, res ult confirmed Potassium 3.2(L) 3.5 - 5.0 mEq/L [facility] Chloride 88(L) 96 - 110 mEq/L [facility] CO2 29 24 - 32 mEq/L [facility] 05/15/2008 3:55 EST 05/15/2008 4:03 EST Jose Alejandro Castro MD CHEMISTRY & BLOOD GA S ORDERABLES Performing Organization Address [facility] Phone Number [facility] [address] [place] [address] * OSMOLALITY, URINE (05/15/2008 2:10 EST) Osmolality, Ur 372 MOS/KG [facility] 05/15/2008 2:10 EST 05/15/2008 2:15 EST Jose Alejandro Castro MD URINALYSIS ORDERABLE S Performing Organization Address [facility] Phone Number [facility] [address] [place] [address] * SODIUM, URINE RANDOM (05/15/2008 2:10 EST) Sodium, Ur 167.0 mEq/L [facility] 05/15/2008 2:10 EST 05/15/2008 2:15 EST Jose Alejandro Castro MD URINALYSIS ORDERABLE S Performing Organization Address [facility] Co de Phone Number [facility] [address] [place] [address] * GLUCOSE, SERUM (05/15/2008 0:45 EST) Glucose, Serum 97 70 - 100 mg/dl [facility] 05/15/2008 0:45 EST 05/15/2008 0:50 EST Jose Alejandro Castro MD CHEMISTRY & BLOOD GA S ORDERABLES Performing Organization Address [facility] de Phone Number [facility] [address] [place] [address] * (ABNORMAL) PHOSPHORUS (05/15/2008 0:45 EST) Phosphorus 2.5(L) 2.7 - 4.7 mg/dl [facility] 05/15/2008 0:45 EST 05/15/2008 0:50 EST Jose Alejandro Castro MD CHEMISTRY & BLOOD GA S ORDERABLES Performing Organization Address [facility] de Phone Number [facility] [address] [place] [address] * (ABNORMAL) MAGNESIUM (05/15/2008 0:45 EST) Magnesium 1.5(L) 1.7 - 2.8 mg/dl [facility] 05/15/2008 0:45 EST 05/15/2008 0:50 EST Jose Alejandro Castro MD CHEMISTRY & BLOOD GA S ORDERABLES Performing Organization Address [facility] Co de Phone Number [facility] [address] [place] [address] * (ABNORMAL) CALCIUM (05/15/2008 0:45 EST) Calcium 7.1(L) 8.5 - 10.5 mg/dl [facility] Calculated Calcium 8.9 8.5 - 10.5 mg/dl [facility] 05/15/2008 0:45 EST 05/15/2008 0:50 EST Jose Alejandro Castro MD CHEMISTRY & BLOOD GA S ORDERABLES Performing Organization Address [facility] Co de Phone Number [facility] [address] [place] [address] * (ABNORMAL) ELECTROLYTES (05/15/2008 0:45 EST) Sodium 123(LL) 136 - 145 mEq/L [facility] Comment:Sample retested, res ult confirmed Potassium 3.5 3.5 - 5.0 mEq/L [facility] Chloride 90(L) 96 - 110 mEq/L [facility] CO2 26 24 - 32 mEq/L [facility] 05/15/2008 0:45 EST 05/15/2008 0:50 EST Jose Alejandro Castro MD CHEMISTRY & BLOOD GA S ORDERABLES Performing Organization Address [facility] Co de Phone Number [facility] [address] [place] [address] * GLUCOSE, SERUM (05/14/2008 22:10 EST) Glucose, Serum 88 70 - 100 mg/dl [facility] 05/14/2008 22:1 0 EST 05/14/2008 22:15 EST Jose Alejandro Castro MD CHEMISTRY & BLOOD GA S ORDERABLES Performing Organization Address [facility] Co de Phone Number [facility] [address] [place] [address] * (ABNORMAL) ELECTROLYTES (05/14/2008 22:10 EST) Sodium 125(L) 136 - 145 mEq/L [facility] Potassium 3.4(L) 3.5 - 5.0 mEq/L [facility] Chloride 92(L) 96 - 110 mEq/L [facility] CO2 26 24 - 32 mEq/L [facility] 05/14/2008 22:1 0 EST 05/14/2008 22:15 EST Jose Alejandro Castro MD CHEMISTRY & BLOOD GA S ORDERABLES Performing Organization Address [facility] Phone Number [facility] [address] [place] [address] * GLUCOSE, SERUM (05/14/2008 18:50 EST) Glucose, Serum 99 70 - 100 mg/dl [facility] 05/14/2008 18:5 0 EST 05/14/2008 18:59 EST Jose Alejandro Castro MD CHEMISTRY & BLOOD GA S ORDERABLES Performing Organization Address [facility] Phone Number [facility] [address] [place] [address] * (ABNORMAL) ELECTROLYTES (05/14/2008 18:50 EST) Sodium 126(L) 136 - 145 mEq/L [facility] Potassium 3.2(L) 3.5 - 5.0 mEq/L [facility] Chloride 93(L) 96 - 110 mEq/L [facility] CO2 26 24 - 32 mEq/L [facility] 05/14/2008 18:5 0 EST 05/14/2008 18:59 EST Jose Alejandro Castro MD CHEMISTRY & BLOOD GA S ORDERABLES Performing Organization Address [facility] Phone Number [facility] [address] [place] [address] * (ABNORMAL) PHOSPHORUS (05/14/2008 16:26 EST) Phosphorus 1.7(L) 2.7 - 4.7 mg/dl [facility] 05/14/2008 16:2 6 EST 05/14/2008 16:26 EST Jose Alejandro Castro MD CHEMISTRY & BLOOD GA S ORDERABLES Performing Organization Address [facility] Phone Number [facility] [address] [place] [address] * (ABNORMAL) CALCIUM (05/14/2008 16:26 EST) Calcium 6.8(L) 8.5 - 10.5 mg/dl [facility] Calculated Calcium 8.6 8.5 - 10.5 mg/dl [facility] 05/14/2008 16:2 6 EST 05/14/2008 16:26 EST Jose Alejandro Castro MD CHEMISTRY & BLOOD GA S ORDERABLES Performing Organization Address [facility]/ZIP Co de Phone Number [facility] [address] [place] [address] * (ABNORMAL) GLUCOSE, SERUM (05/14/2008 16:26 EST) Pathologist [facility] Glucose, Serum 107(H) 70 - 100 mg/dl [facility] 05/14/2008 16:2 6 EST 05/14/2008 16:26 EST Jose Alejandro Castro MD CHEMISTRY & BLOOD GA S ORDERABLES Performing Organization Address [facility] Co de Phone Number [facility] [address] [place] [address] * (ABNORMAL) ELECTROLYTES (05/14/2008 16:26 EST) Sodium 129(L) 136 - 145 mEq/L [facility] Potassium 3.0(L) 3.5 - 5.0 mEq/L [facility] Chloride 95(L) 96 - 110 mEq/L [facility] CO2 25 24 - 32 mEq/L [facility] 05/14/2008 16:2 6 EST 05/14/2008 16:26 EST Jose Alejandro Castro MD CHEMISTRY & BLOOD GA S ORDERABLES Performing Organization Address [facility]/ZIP Co de Phone Number [facility] [address] [place] [address] * C. DIFFICILE TOXIN (05/14/2008 13:55 EST) Specimen Description Feces [facility] Result No C.difficil e toxin A or toxin B detected. [facility] Report Status Final 05/14/2008 [facility] 05/14/2008 13:5 5 EST 05/14/2008 16:05 EST Jose Alejandro Castro MD MICROBIOLOGY - GENER AL ORDERABLES Performing Organization Address [facility] Phone Number [facility] [address] [place] [address] * GLUCOSE, SERUM (05/14/2008 10:21 EST) Glucose, Serum 74 70 - 100 mg/dl [facility] Comment:Heparinized plasma. 05/14/2008 10:2 1 EST 05/14/2008 10:21 EST Jose Alejandro Castro MD CHEMISTRY & BLOOD GA S ORDERABLES Performing Organization Address [facility] Phone Number [facility] [address] [place] [address] * (ABNORMAL) ELECTROLYTES (05/14/2008 10:21 EST) Sodium 133(L) 136 - 145 mEq/L [facility] Comment:Heparinized plasma. Potassium 3.2(L) 3.5 - 5.0 mEq/L [facility] Comment:Heparinized plasma. Chloride 100 96 - 110 mEq/L [facility] Comment:Heparinized plasma. CO2 27 24 - 32 mEq/L [facility] Comment:Heparinized plasma. 05/14/2008 10:2 1 EST 05/14/2008 10:21 EST Jose Alejandro Castro MD CHEMISTRY & BLOOD GA S ORDERABLES Performing Organization Address [facility] Phone Number [facility] [address] [place] [address] * (ABNORMAL) CALCIUM, IONIZED (05/14/2008 5:38 EST) Calcium, Ionized 1.00(L) 1.12 - 1.32 mmol/L [facility] staff design engineer [place] [id number] Test performed by Chemistry [facility] 05/14/2008 5:38 EST 05/14/2008 5:49 EST Jose Alejandro Castro MD CHEMISTRY & BLOOD GA S ORDERABLES Performing Organization Address [facility] Co de Phone Number [facility] [address] [place] [address] * CALCIUM IONIZED (05/14/2008 5:27 EST) Ionized Calcium Note Sample sent to Lab. [facility] 05/14/2008 5:27 EST 05/14/2008 5:27 EST Jose Alejandro Castro MD CHEMISTRY & BLOOD GA S ORDERABLES Performing Organization Address [facility] de Phone Number [facility] [address] [place] [address] * (ABNORMAL) PHOSPHORUS (05/14/2008 4:07 EST) Phosphorus 2.0(L) 2.7 - 4.7 mg/dl [facility] 05/14/2008 4:07 EST 05/14/2008 4:07 EST Jose Alejandro Castro MD CHEMISTRY & BLOOD GA S ORDERABLES Performing Organization Address [facility] Phone Number [facility] [address] [place] [address] * (ABNORMAL) MAGNESIUM (05/14/2008 4:07 EST) Magnesium 1.5(L) 1.7 - 2.8 mg/dl [facility] 05/14/2008 4:07 EST 05/14/2008 4:07 EST Jose Alejandro Castro MD CHEMISTRY & BLOOD GA S ORDERABLES Performing Organization Address [facility] Co de Phone Number [facility] [address] [place] [address] * (ABNORMAL) CALCIUM (05/14/2008 4:07 EST) Calcium 6.6(L) 8.5 - 10.5 mg/dl [facility] Calculated Calcium 8.7 8.5 - 10.5 mg/dl [facility] 05/14/2008 4:07 EST 05/14/2008 4:07 EST Jose Alejandro Castro MD CHEMISTRY & BLOOD GA S ORDERABLES Performing Organization Address [facility] Co de Phone Number [facility] [address] [place] [address] * (ABNORMAL) ELECTROLYTES (05/14/2008 4:07 EST) Sodium 134(L) 136 - 145 mEq/L [facility] Potassium 2.9(LL) 3.5 - 5.0 mEq/L [facility] Comment:Sample retested, res ult confirmed Chloride 102 96 - 110 mEq/L [facility] CO2 24 24 - 32 mEq/L [facility] 05/14/2008 4:07 EST 05/14/2008 4:07 EST Jose Alejandro Castro MD CHEMISTRY & BLOOD GA S ORDERABLES Performing Organization Address [facility] de Phone Number [facility] [address] [place] [address] * (ABNORMAL) CREATININE (05/14/2008 4:07 EST) Creatinine 0.50(L) 0.6 - 1.2 mg/dl [facility] GFR, Calculated Age <18 ml/min/1.7 3m2 [facility] 05/14/2008 4:07 EST 05/14/2008 4:07 EST Jose Alejandro Castro MD CHEMISTRY & BLOOD GA S ORDERABLES Performing Organization Address [facility] Co de Phone Number [facility] [address] [place] [address] * (ABNORMAL) BUN (05/14/2008 4:07 EST) BUN 7(L) 8 - 21 mg/dl [facility] 05/14/2008 4:07 EST 05/14/2008 4:07 EST Jose Alejandro Castro MD CHEMISTRY & BLOOD GA S ORDERABLES [facility] [address] [place] [address] * (ABNORMAL) HEMAGRAM (05/14/2008 4:07 EST) WBC 3.27(L) 4.6 - 11.2 K/cmm [facility] RBC 3.58(L) 4.50 - 5.30 M/cmm [facility] Hemoglobin 9.4(L) 13.0 - 16.0 gm/dl [facility] HCT 27.9(L) 37.0 - 49.0 % [facility] MCV 78 78 - 98 fl [facility] MCH 26.3 pg [facility] MCHC 33.8 gm/dl [facility] PLT 187 156 - 312 K/cmm [facility] RDW-CV 16.3 % [facility] 05/14/2008 4:07 EST 05/14/2008 4:07 EST Jose Alejandro Castro MD HEMATOLOGY & PF4 ORD ERABLES Performing Organization Address [facility]/ZIP Co de Phone Number [facility] [address] [place] [address] * GLUCOSE, GLUCOMETER (05/14/2008 4:04 EST) Glucose, Fingerstick 97 70 - 100 mg/dl [facility] Milk [employer] Grader [place] [id number] Test Performed by Nursing Services [facility] 05/14/2008 4:04 EST 05/14/2008 23:15 EST Jose Alejandro Castro MD CHEMISTRY & BLOOD GA S ORDERABLES [facility] [address] [place] [address] * (ABNORMAL) ELECTROLYTES (05/13/2008 22:11 EST) Sodium 134(L) 136 - 145 mEq/L [facility] Potassium 2.9(LL) 3.5 - 5.0 mEq/L [facility] Comment:Sample retested, res ult confirmed Chloride 103 96 - 110 mEq/L [facility] CO2 27 24 - 32 mEq/L [facility] 05/13/2008 22:1 1 EST 05/13/2008 22:11 EST Jose Alejandro Castro MD CHEMISTRY & BLOOD GA S ORDERABLES Performing Organization Address [facility] Co de Phone Number [facility] [address] [place] [address] * GLUCOSE, GLUCOMETER (05/13/2008 22:07 EST) Glucose, Fingerstick 93 70 - 100 mg/dl [facility] Milk [employer] Cream Grader [place] [id number] Test Performed by Nursing Services [facility] 05/13/2008 22:0 7 EST 05/15/2008 8:34 EST Jose Alejandro Castro MD CHEMISTRY & BLOOD GA S ORDERABLES Performing Organization Address [facility] Co de Phone Number [facility] [address] [place] [address] * XRAY FEEDING TUBE PLACEMENT (05/13/2008 21:33 EST) Anatomical Region Laterality Modality Other 05/13/2008 21:3 3 EST Narrative 11/21/2008 9:41 EDT 17 yo male s/p ND placement, check placement FEEDING TUBE PLACEMENT ??May 13, 2008 9:33:00 PM Signs and Symptoms: ??17 yo male s/p ND placement, check placement Findings: A feeding tube is seen its tip in the antrum or pylorus. Procedure Note Sukhi Menard MD - 11/21/2008 17 yo male s/p ND placement, check placement FEEDING TUBE PLACEMENT May 13, 2008 9:33:00 PM Signs and Symptoms: 17 yo male s/p ND placement, check placement Findings: A feeding tube is seen its tip in the antrum or pylorus. Jose Alejandro Castro MD IMG DIAGNOSTIC IMAGI NG ORDERABLES * (ABNORMAL) GLUCOSE, GLUCOMETER (05/13/2008 16:53 EST) Glucose, Fingerstick 105(H) 70 - 100 mg/dl [facility] Milk And Cream Grader ID [id number] Test Performed by Nursing Services [facility] 05/13/2008 16:5 3 EST 05/15/2008 8:34 EST Jose Alejandro Castro MD CHEMISTRY & BLOOD GA S ORDERABLES Performing Organization Address [facility] de Phone Number [facility] [address] [place] [address] * (ABNORMAL) ELECTROLYTES (05/13/2008 16:50 EST) Sodium 133(L) 136 - 145 mEq/L [facility] Potassium 2.8(LL) 3.5 - 5.0 mEq/L [facility] Comment:Sample retested, res ult confirmed Chloride 99 96 - 110 mEq/L [facility] CO2 29 24 - 32 mEq/L [facility] 05/13/2008 16:5 0 EST 05/13/2008 16:57 EST Jose Alejandro Castro MD CHEMISTRY & BLOOD GA S ORDERABLES Performing Organization Address [facility] de Phone Number [facility] [address] [place] [address] * SODIUM, URINE RANDOM (05/13/2008 13:00 EST) Sodium, Ur 130.0 mEq/L [facility] 05/13/2008 13:0 0 EST 05/13/2008 13:01 EST Jose Alejandro Castro MD URINALYSIS ORDERABLE S Performing Organization Address [facility] de Phone Number [facility] [address] [place] [address] * MR HEAD W/WO CONTRAST (05/13/2008 11:47 EST) Anatomical Region Laterality Modality Other 05/13/2008 11:4 7 EST Narrative 11/21/2008 10:38 EDT 17 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 There is considerable artifact in the region of the sella secondary to prior surgical change. The T2 scans however clearly show that there is a new abnormality in the sphenoid sinus more so left which could be infection although this may relate to nasal intubation. There is considerable high signal on the right in the frontal region predominantly which I presume is postsurgical in nature probably representing some gliotic tissue. There is enlargement of the right frontal horn in keeping with some tissue loss in this region. There also may be some old areas of tissue loss in the thalamus bilaterally slightly larger on the right. ??Region of the prior surgery has considerable metal artifact and evaluation for recurrent tumor is poor but no large recurrence is identified. On the FLAIR images there are noted to be multiple areas of high signal in the cerebellum bilaterally. These are also well-seen on the T2 scans. On the perfusion scans these are noted to be mildly bright and dark on the ADC map consistent with multiple areas of cerebellar infarction. There is no enhancement about these to suggest infection and relatively little mass effect. A no other new abnormalities are seen. Impression: Postsurgical changes which are difficult to compare due to artifact but no large recurrence is identified. Tissue loss in the right frontal area predominantly. These changes were present previously. The new finding since previous exam of February 2008 are multiple areas of high T2 signal in the cerebellum which are bright on the DWI but do not enhance. These are consistent with multiple areas of infarction which are acute to subacute but certainly less than 10 to 14 days old. 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 There is considerable artifact in the region of the sella secondary to prior surgical change. The T2 scans however clearly show that there is a new abnormality in the sphenoid sinus more so left which could be infection although this may relate to nasal intubation. There is considerable high signal on the right in the frontal region predominantly which I presume is postsurgical in nature probably representing some gliotic tissue. There is enlargement of the right frontal horn in keeping with some tissue loss in this region. There also may be some old areas of tissue loss in the thalamus bilaterally slightly larger on the right. Region of the prior surgery has considerable metal artifact and evaluation for recurrent tumor is poor but no large recurrence is identified. On the FLAIR images there are noted to be multiple areas of high signal in the cerebellum bilaterally. These are also well-seen on the T2 scans. On the perfusion scans these are noted to be mildly bright and dark on the ADC map consistent with multiple areas of cerebellar infarction. There is no enhancement about these to suggest infection and relatively little mass effect. A no other new abnormalities are seen. Impression: Postsurgical changes which are difficult to compare due to artifact but no large recurrence is identified. Tissue loss in the right frontal area predominantly. These changes were present previously. The new finding since previous exam of February 2008 are multiple areas of high T2 signal in the cerebellum which are bright on the DWI but do not enhance. These are consistent with multiple areas of infarction which are acute to subacute but certainly less than 10 to 14 days old. No other new findings Jose Alejandro Castro MD [facility] ORDERABLES * (ABNORMAL) GLUCOSE, SERUM (05/13/2008 10:00 EST) Glucose, Serum 151(H) 70 - 100 mg/dl [facility] Comment:Sample retested, res ult confirmed 05/13/2008 10:0 0 EST 05/13/2008 10:23 EST Jose Alejandro Castro MD CHEMISTRY & BLOOD GA S ORDERABLES [facility] [address] [place] [address] * (ABNORMAL) ALBUMIN (05/13/2008 10:00 EST) Albumin 2.2(L) 3.0 - 5.5 g/dl [facility] Comment:Sample retested, res ult confirmed 05/13/2008 10:0 0 EST 05/13/2008 10:23 EST Jose Alejandro Castro MD CHEMISTRY & BLOOD GA S ORDERABLES Performing Organization Address [facility] Co de Phone Number [facility] [address] [place] [address] * (ABNORMAL) ELECTROLYTES (05/13/2008 10:00 EST) Sodium 134(L) 136 - 145 mEq/L [facility] Comment:Sample retested, res ult confirmed Potassium 2.5(LL) 3.5 - 5.0 mEq/L [facility] Comment:Sample retested, res ult confirmed Chloride 99 96 - 110 mEq/L [facility] Comment:Sample retested, res ult confirmed CO2 29 24 - 32 mEq/L [facility] Comment:Sample retested, res ult confirmed 05/13/2008 10:0 0 EST 05/13/2008 10:23 EST Jose Alejandro Castro MD CHEMISTRY & BLOOD GA S ORDERABLES Performing Organization Address [facility] Phone Number [facility] [address] [place] [address] * (ABNORMAL) BNP (05/13/2008 10:00 EST) BNP 653(H) <100 pg/ml [facility] 05/13/2008 10:0 0 EST 05/13/2008 10:23 EST Jose Alejandro Castro MD CHEMISTRY & BLOOD GA S ORDERABLES Performing Organization Address [facility] Co de Phone Number [facility] [address] [place] [address] * (ABNORMAL) CALCIUM, IONIZED (05/13/2008 4:18 EST) Calcium, Ionized 1.09(L) 1.12 - 1.32 mmol/L [facility] staff design engineer [place] [id number] Test performed by Chemistry [facility] 05/13/2008 4:18 EST 05/13/2008 4:22 EST Jose Alejandro Castro MD CHEMISTRY & BLOOD GA S ORDERABLES Performing Organization Address City/State/[facility] Co de Phone Number [facility] [address] [place] [address] * PORTABLE ABDOMEN 1 VIEW (05/13/2008 4:15 EST) Anatomical Region Laterality Modality Other 05/13/2008 4:15 EST Narrative 11/21/2008 10:38 EDT 17 yo male with pna s/p remote craniopharyngeoma with aspiration. check ND placement Portable abdomen 1 view: ??May 13, 2008 4:15:00 AM Clinical History: 17 year old male with PNA s/p remote craniopharyngioma with aspiration. check ND placement Findings: Supine view of the abdomen and AP portable view of the chest is obtained. On the abdomen, a transesophageal catheter tip projects in the medial right upper quadrant of the abdomen. Normal bowel gas pattern. Bones are unremarkable. Pleural thickening is seen on the right compatible with a pleural effusion. On the chest, transesophageal catheter tip is off the radiograph. Right-sided central venous catheter tip projects intracardiac on the right. Hazy densities are seen in the right and left lung with pulmonary vascular prominence, increased when compared to the prior exam. Perihilar hazy densities and increased opacity with partial obscuration of right and left lung continues to be seen. Pleural thickening on the right is compatible with a pleural effusion. There is likely a smaller left pleural effusion as well. Impression: 1. Placement of NG tube described above. 2. Bilateral pleural effusions, right greater than left. 3. Increased pulmonary vascularity when compared to prior exam. Procedure Note Carmel Jerez MD - 11/21/2008 17 yo male with pna s/p remote craniopharyngeoma with aspiration. check ND placement Portable abdomen 1 view: May 13, 2008 4:15:00 AM Clinical History: 17 year old male with PNA s/p remote craniopharyngioma with aspiration. check ND placement Findings: Supine view of the abdomen and AP portable view of the chest is obtained. On the abdomen, a transesophageal catheter tip projects in the medial right upper quadrant of the abdomen. Normal bowel gas pattern. Bones are unremarkable. Pleural thickening is seen on the right compatible with a pleural effusion. On the chest, transesophageal catheter tip is off the radiograph. Right-sided central venous catheter tip projects intracardiac on the right. Hazy densities are seen in the right and left lung with pulmonary vascular prominence, increased when compared to the prior exam. Perihilar hazy densities and increased opacity with partial obscuration of right and left lung continues to be seen. Pleural thickening on the right is compatible with a pleural effusion. There is likely a smaller left pleural effusion as well. Impression: 1. Placement of NG tube described above. 2. Bilateral pleural effusions, right greater than left. 3. Increased pulmonary vascularity when compared to prior exam. Salud Nichole MD [facility] ORDERABLES * PORTABLE CHEST 1 VIEW (05/13/2008 4:14 EST) Anatomical Region Laterality Modality Other 05/13/2008 4:14 EST Narrative 11/21/2008 10:38 EDT 17 yo male with pna s/p remote craniopharyngeoma with aspiration. check ND placement Portable abdomen 1 view: ??May 13, 2008 4:15:00 AM Clinical History: 17 year old male with PNA s/p remote craniopharyngioma with aspiration. check ND placement Findings: Supine view of the abdomen and AP portable view of the chest is obtained. On the abdomen, a transesophageal catheter tip projects in the medial right upper quadrant of the abdomen. Normal bowel gas pattern. Bones are unremarkable. Pleural thickening is seen on the right compatible with a pleural effusion. On the chest, transesophageal catheter tip is off the radiograph. Right-sided central venous catheter tip projects intracardiac on the right. Hazy densities are seen in the right and left lung with pulmonary vascular prominence, increased when compared to the prior exam. Perihilar hazy densities and increased opacity with partial obscuration of right and left lung continues to be seen. Pleural thickening on the right is compatible with a pleural effusion. There is likely a smaller left pleural effusion as well. Impression: 1. Placement of NG tube described above. 2. Bilateral pleural effusions, right greater than left. 3. Increased pulmonary vascularity when compared to prior exam. Procedure Note Carmel Jerez MD - 11/21/2008 17 yo male with pna s/p remote craniopharyngeoma with aspiration. check ND placement Portable abdomen 1 view: May 13, 2008 4:15:00 AM Clinical History: 17 year old male with PNA s/p remote craniopharyngioma with aspiration. check ND placement Findings: Supine view of the abdomen and AP portable view of the chest is obtained. On the abdomen, a transesophageal catheter tip projects in the medial right upper quadrant of the abdomen. Normal bowel gas pattern. Bones are unremarkable. Pleural thickening is seen on the right compatible with a pleural effusion. On the chest, transesophageal catheter tip is off the radiograph. Right-sided central venous catheter tip projects intracardiac on the right. Hazy densities are seen in the right and left lung with pulmonary vascular prominence, increased when compared to the prior exam. Perihilar hazy densities and increased opacity with partial obscuration of right and left lung continues to be seen. Pleural thickening on the right is compatible with a pleural effusion. There is likely a smaller left pleural effusion as well. Impression: 1. Placement of NG tube described above. 2. Bilateral pleural effusions, right greater than left. 3. Increased pulmonary vascularity when compared to prior exam. Salud Nichole MD [facility] ORDERABLES * (ABNORMAL) GLUCOSE, SERUM (05/13/2008 4:13 EST) Pathologist [facility] Glucose, Serum 126(H) 70 - 100 mg/dl [facility] 05/13/2008 4:13 EST 05/13/2008 4:13 EST Jose Alejandro Castro MD CHEMISTRY & BLOOD GA S ORDERABLES [facility] [address] [place] [address] * PHOSPHORUS (05/13/2008 4:13 EST) Phosphorus 2.8 2.7 - 4.7 mg/dl [facility] 05/13/2008 4:13 EST 05/13/2008 4:13 EST Jose Alejandro Castro MD CHEMISTRY & BLOOD GA S ORDERABLES Performing Organization Address City/[facility]/ZIP Co de Phone Number [facility] [address] [place] [address] * (ABNORMAL) MAGNESIUM (05/13/2008 4:13 EST) Magnesium 1.5(L) 1.7 - 2.8 mg/dl [facility] 05/13/2008 4:13 EST 05/13/2008 4:13 EST Jose Alejandro Castro MD CHEMISTRY & BLOOD GA S ORDERABLES Performing Organization Address [facility] de Phone Number [facility] [address] [place] [address] * CREATININE (05/13/2008 4:13 EST) Creatinine 0.70 0.6 - 1.2 mg/dl [facility] GFR, Calculated Age <18 ml/min/1.7 3m2 [facility] 05/13/2008 4:13 EST 05/13/2008 4:13 EST Jose Alejandro Castro MD CHEMISTRY & BLOOD GA S ORDERABLES Performing Organization Address City/[facility] Co de Phone Number [facility] [address] [place] [address] * BUN (05/13/2008 4:13 EST) BUN 12 8 - 21 mg/dl [facility] 05/13/2008 4:13 EST 05/13/2008 4:13 EST Jose Alejandro Castro MD CHEMISTRY & BLOOD GA S ORDERABLES Performing Organization Address City/[facility] Co de Phone Number [facility] [address] [place] [address] * (ABNORMAL) ELECTROLYTES (05/13/2008 4:13 EST) Sodium 144 136 - 145 mEq/L [facility] Potassium 3.0(L) 3.5 - 5.0 mEq/L [facility] Chloride 108 96 - 110 mEq/L [facility] CO2 29 24 - 32 mEq/L [facility] 05/13/2008 4:13 EST 05/13/2008 4:13 EST Jose Alejandro Castro MD CHEMISTRY & BLOOD GA S ORDERABLES [facility] [address] [place] [address] * (ABNORMAL) HEMAGRAM AND DIFFERENTIAL (05/13/2008 4:13 EST) WBC 3.60(L) 4.6 - 11.2 K/cmm [facility] RBC 3.41(L) 4.50 - 5.30 M/cmm [facility] Hemoglobin 8.9(L) 13.0 - 16.0 gm/dl [facility] HCT 26.6(L) 37.0 - 49.0 % [facility] MCV 78 78 - 98 fl [facility] MCH 26.2 pg [facility] MCHC 33.6 gm/dl [facility] PLT 163 156 - 312 K/cmm [facility] RDW-CV 17.9 % [facility] Neutrophils 69.7 % [facility] Lymphocytes 23.6 % [facility] Monocytes 5.0 % [facility] Eosinophils 1.4 % [facility] Basophils 0.3 % [facility] ABS Neutrophils 2.51 K/cmm [facility] ABS Lymphs 0.85 K/cmm [facility] ABS Monocytes 0.18 K/cmm [facility] ABS Eosinophils 0.05 K/cmm [facility] ABS Basophils 0.01 K/cmm [facility] Type of Diff: Automated [facility] 05/13/2008 4:13 EST 05/13/2008 4:13 EST Jose Alejandro Castro MD PACKAGES & DNA PROBE ORDERABLES Performing Organization Address [facility] Co de Phone Number [facility] [address] [place] [address] * CALCIUM IONIZED (05/13/2008 4:13 EST) Ionized Calcium Note Sample sent to Lab. [facility] 05/13/2008 4:13 EST 05/13/2008 4:13 EST Jose Alejandro Castro MD CHEMISTRY & BLOOD GA S ORDERABLES Performing Organization Address [facility] Co de Phone Number [facility] [address] [place] [address] * (ABNORMAL) GLUCOSE, GLUCOMETER (05/13/2008 4:08 EST) Glucose, Fingerstick 141(H) 70 - 100 mg/dl [facility] Milk And Cream Grader ID [id number] Test Performed by Nursing Services [facility] 05/13/2008 4:08 EST 05/15/2008 8:33 EST Jose Alejandro Castro MD CHEMISTRY & BLOOD GA S ORDERABLES Performing Organization Address [facility] de Phone Number [facility] [address] [place] [address] * UA WITH MICROSCOPIC (05/13/2008 2:03 EST) Color, UA Straw [facility] Clarity, UA Clear [facility] Glucose, UA Norm NORM [facility] Bilirubin, UA Neg NEG [facility] Ketones, UA Neg NEG [facility] Specific Perry, Urine 1.015 1.005 - 1.02 [facility] Blood, UA Neg NEG [facility] pH, UA 7.5 5.0 - 9.0 [facility] Protein, UA Neg NEG [facility] Urobilinogen, UA Norm NORM mg/dL [facility] Nitrite, UA Neg NEG [facility] Leuk Esterase Neg NEG [facility] WBC, UA less than 1 0 - 5 /HPF [facility] RBC, UA None seen 0 - 5 /HPF [facility] Squam Epithel, UA None seen NS /HPF [facility] Renal Epithel, UA None seen NS /HPF [facility] Bacteria, UA None seen NS /HPF [facility] Crystals, UA None seen /HPF [facility] Hyaline Casts, UA None seen /LPF [facility] Comment Microscopic results are unreliable on urines unrefrig >2hrs or refrig >8hrs. [facility] Comment Small sample, less than 12 ml received. [facility] 05/13/2008 2:03 EST 05/13/2008 2:03 EST Jose Alejandro Castro MD URINALYSIS ORDERABLE S Performing Organization Address [facility] de Phone Number [facility] [address] [place] [address] * (ABNORMAL) ELECTROLYTES (05/12/2008 21:57 EST) Sodium 145 136 - 145 mEq/L [facility] Potassium 3.3(L) 3.5 - 5.0 mEq/L [facility] Chloride 110 96 - 110 mEq/L [facility] CO2 28 24 - 32 mEq/L [facility] 05/12/2008 21:5 7 EST 05/12/2008 21:57 EST Jose Alejandro Castro MD CHEMISTRY & BLOOD GA S ORDERABLES Performing Organization Address [facility] Co de Phone Number [facility] [address] [place] [address] * (ABNORMAL) GLUCOSE, GLUCOMETER (05/12/2008 21:49 EST) Glucose, Fingerstick 126(H) 70 - 100 mg/dl [facility] [employer] Grader ID [id number] Test Performed by Nursing Services [facility] 05/12/2008 21:4 9 EST 05/12/2008 23:19 EST Jose Alejandro Castro MD CHEMISTRY & BLOOD GA S ORDERABLES Performing Organization Address [facility] Co de Phone Number [facility] [address] [place] [address] * (ABNORMAL) GLUCOSE, GLUCOMETER (05/12/2008 16:06 EST) Glucose, Fingerstick 119(H) 70 - 100 mg/dl [facility] Milk [employer] Grader ID [id number] Test Performed by Nursing Services [facility] 05/12/2008 16:0 6 EST 05/12/2008 23:19 EST Jose Alejandro Castro MD CHEMISTRY & BLOOD GA S ORDERABLES Performing Organization Address [facility] Phone Number [facility] [address] [place] [address] * (ABNORMAL) ELECTROLYTES (05/12/2008 16:05 EST) Sodium 146(H) 136 - 145 mEq/L [facility] Potassium 3.2(L) 3.5 - 5.0 mEq/L [facility] Chloride 111(H) 96 - 110 mEq/L [facility] CO2 29 24 - 32 mEq/L [facility] 05/12/2008 16:0 5 EST 05/12/2008 16:25 EST Jose Alejandro Castro MD CHEMISTRY & BLOOD GA S ORDERABLES Performing Organization Address [facility] de Phone Number [facility] [address] [place] [address] * (ABNORMAL) GLUCOSE, GLUCOMETER (05/12/2008 9:21 EST) Glucose, Fingerstick 133(H) 70 - 100 mg/dl [facility] [employer] Grader ID [id number] Test Performed by Nursing Services [facility] 05/12/2008 9:21 EST 05/12/2008 23:18 EST Jose Alejandro Castro MD CHEMISTRY & BLOOD GA S ORDERABLES Performing Organization Address [facility] Co de Phone Number [facility] [address] [place] [address] * (ABNORMAL) ELECTROLYTES (05/12/2008 9:20 EST) Sodium 147(H) 136 - 145 mEq/L [facility] Potassium 3.2(L) 3.5 - 5.0 mEq/L [facility] Chloride 113(H) 96 - 110 mEq/L [facility] CO2 28 24 - 32 mEq/L [facility] 05/12/2008 9:20 EST 05/12/2008 9:30 EST Jose Alejandro Castro MD CHEMISTRY & BLOOD GA S ORDERABLES Performing Organization Address [facility]/ZIP Co de Phone Number [facility] [address] [place] [address] * CREATININE (05/12/2008 4:10 EST) Creatinine 0.70 0.6 - 1.2 mg/dl [facility] GFR, Calculated Age <18 ml/min/1.7 3m2 [facility] 05/12/2008 4:10 EST 05/12/2008 5:17 EST Jose Alejandro Castro MD CHEMISTRY & BLOOD GA S ORDERABLES Performing Organization Address [facility] Co de Phone Number [facility] [address] [place] [address] * BUN (05/12/2008 4:10 EST) BUN 14 8 - 21 mg/dl [facility] 05/12/2008 4:10 EST 05/12/2008 5:17 EST Jose Alejandro Castro MD CHEMISTRY & BLOOD GA S ORDERABLES [facility] [address] [place] [address] * (ABNORMAL) ELECTROLYTES (05/12/2008 4:10 EST) Sodium 147(H) 136 - 145 mEq/L [facility] Potassium 3.6 3.5 - 5.0 mEq/L [facility] Chloride 113(H) 96 - 110 mEq/L [facility] CO2 28 24 - 32 mEq/L [facility] 05/12/2008 4:10 EST 05/12/2008 5:17 EST Jose Alejandro Castro MD CHEMISTRY & BLOOD GA S ORDERABLES Performing Organization Address City/[facility]/ZIP Co de Phone Number [facility] [address] [place] [address] * (ABNORMAL) HEMAGRAM AND DIFFERENTIAL (05/12/2008 4:10 EST) WBC 8.07 4.6 - 11.2 K/cmm [facility] RBC 3.33(L) 4.50 - 5.30 M/cmm [facility] Hemoglobin 8.7(L) 13.0 - 16.0 gm/dl [facility] HCT 25.8(L) 37.0 - 49.0 % [facility] MCV 77(L) 78 - 98 fl [facility] MCH 26.2 pg [facility] MCHC 33.8 gm/dl [facility] PLT 122(L) 156 - 312 K/cmm [facility] RDW-CV 17.3 % [facility] Neutrophils 82.6 % [facility] Lymphocytes 13.1 % [facility] Monocytes 3.5 % [facility] Eosinophils 0.8 % [facility] Basophils 0.0 % [facility] ABS Neutrophils 6.67 K/cmm [facility] ABS Lymphs 1.06 K/cmm [facility] ABS Monocytes 0.28 K/cmm [facility] ABS Eosinophils 0.06 K/cmm [facility] ABS Basophils 0.00 K/cmm [facility] Type of Diff: Automated [facility] 05/12/2008 4:10 EST 05/12/2008 5:17 EST Jose Alejandro Castro MD PACKAGES & DNA PROBE ORDERABLES Performing Organization Address City/[facility]/ZIP Co de Phone Number [facility] [address] [place] [address] * GLUCOSE, GLUCOMETER (05/11/2008 20:32 EST) Glucose, Fingerstick 87 70 - 100 mg/dl [facility] Milk [employer] Cream Grader ID [id number] Test Performed by Nursing Services [facility] 05/11/2008 20:3 2 EST 05/11/2008 23:32 EST Jose Alejandro Castro MD CHEMISTRY & BLOOD GA S ORDERABLES Performing Organization Address [facility] Co de Phone Number [facility] [address] [place] [address] * (ABNORMAL) ELECTROLYTES (05/11/2008 20:30 EST) [facility] Sodium 145 136 - 145 mEq/L [facility] Potassium 3.5 3.5 - 5.0 mEq/L [facility] Chloride 111(H) 96 - 110 mEq/L [facility] CO2 26 24 - 32 mEq/L [facility] 05/11/2008 20:3 0 EST 05/11/2008 20:46 EST Jose Alejandro Castro MD CHEMISTRY & BLOOD GA S ORDERABLES Performing Organization Address [facility] Phone Number [facility] [address] [place] [address] * MRSA MOLECULAR DETECTION (05/11/2008 18:42 EST) Specimen Description Nares [facility] Result NEGATIVE for Methicillin Resistant Staphylococcus aureus DNA by PCR. [facility] Report Status Final 05/12/2008 [facility] 05/11/2008 18:4 2 EST 05/11/2008 18:42 EST Jose Alejandro Castro MD MICROBIOLOGY - GENER AL ORDERABLES Performing Organization Address [facility] Co de Phone Number [facility] [address] [place] [address] * (ABNORMAL) GLUCOSE, SERUM (05/11/2008 15:17 EST) Glucose, Serum 174(H) 70 - 100 mg/dl [facility] 05/11/2008 15:1 7 EST 05/11/2008 15:17 EST Jose Alejandro Castro MD CHEMISTRY & BLOOD GA S ORDERABLES Performing Organization Address [facility] Phone Number [facility] [address] [place] [address] * ELECTROLYTES (05/11/2008 15:17 EST) Sodium 139 136 - 145 mEq/L [facility] Potassium 4.1 3.5 - 5.0 mEq/L [facility] Chloride 107 96 - 110 mEq/L [facility] CO2 26 24 - 32 mEq/L [facility] 05/11/2008 15:1 7 EST 05/11/2008 15:17 EST Jose Alejandro Castro MD CHEMISTRY & BLOOD GA S ORDERABLES Performing Organization Address [facility] Phone Number [facility] [address] [place] [address] * XRAY FEEDING TUBE PLACEMENT (05/11/2008 11:27 EST) Anatomical Region Laterality Modality Other 05/11/2008 11:2 7 EST Narrative 11/21/2008 9:40 EDT 17 y/o femlae with feeding int? s/p pneumonia check NG tube placement Feeding tube placement: ??May 11, 2008 11:27:00 AM Clinical History: 17 year old female with feeding intolerance, s/p pneumonia; check NG tube. Findings: Supine, portable view of the lower chest and upper abdomen is obtained. Comparison is made to May 10 at 0712 hours. A transesophageal catheter tip is curled with the tip directed upward in the lateral left upper quadrant of the abdomen. This position is compatible with intragastric location. There is pleural thickening on the right compatible with a pleural effusion and there is obscuration of portions of the right hemidiaphragm and the left hemidiaphragm. Bowel gas pattern is within normal limits. Impression: ??Feeding tube tip left upper quadrant. Procedure Note Carmel Jerez MD - 11/21/2008 17 y/o femlae with feeding int? s/p pneumonia check NG tube placement Feeding tube placement: May 11, 2008 11:27:00 AM Clinical History: 17 year old female with feeding intolerance, s/p pneumonia; check NG tube. Findings: Supine, portable view of the lower chest and upper abdomen is obtained. Comparison is made to May 10 at 0712 hours. A transesophageal catheter tip is curled with the tip directed upward in the lateral left upper quadrant of the abdomen. This position is compatible with intragastric location. There is pleural thickening on the right compatible with a pleural effusion and there is obscuration of portions of the right hemidiaphragm and the left hemidiaphragm. Bowel gas pattern is within normal limits. Impression: Feeding tube tip left upper quadrant. Jose Alejandro Castro MD IMG DIAGNOSTIC IMAGI NG ORDERABLES * GLUCOSE, SERUM (05/11/2008 8:18 EST) Glucose, Serum 93 70 - 100 mg/dl [facility] Comment:Heparinized plasma. 05/11/2008 8:18 EST 05/11/2008 8:18 EST Jose Alejandro Castro MD CHEMISTRY & BLOOD AL S ORDERABLES Performing Organization Address [facility] Co de Phone Number [facility] [address] [place] [address] * ELECTROLYTES (05/11/2008 8:18 EST) Sodium 140 136 - 145 mEq/L [facility] Comment:Heparinized plasma. Potassium 4.0 3.5 - 5.0 mEq/L [facility] Comment:Heparinized plasma. Chloride 109 96 - 110 mEq/L [facility] Comment:Heparinized plasma. CO2 27 24 - 32 mEq/L [facility] Comment:Heparinized plasma. 05/11/2008 8:18 EST 05/11/2008 8:18 EST Jose Alejandro Castro MD CHEMISTRY & BLOOD GA S ORDERABLES Performing Organization Address City/[facility] Co de Phone Number [facility] [address] [place] [address] * CALCIUM, IONIZED (05/11/2008 4:07 EST) Calcium, Ionized 1.19 1.12 - 1.32 mmol/L [place] [place] [id number] Test performed by Chemistry [facility] 05/11/2008 4:07 EST 05/11/2008 4:14 EST Jose Alejandro Castro MD CHEMISTRY & BLOOD GA S ORDERABLES Performing Organization Address [facility] Co de Phone Number [facility] [address] [place] [address] * (ABNORMAL) GLUCOSE, SERUM (05/11/2008 3:55 EST) Glucose, Serum 126(H) 70 - 100 mg/dl [facility] 05/11/2008 3:55 EST 05/11/2008 4:01 EST Jose Alejandro Castro MD CHEMISTRY & BLOOD GA S ORDERABLES Performing Organization Address [facility] de Phone Number [facility] [address] [place] [address] * PHOSPHORUS (05/11/2008 3:55 EST) Phosphorus 2.9 2.7 - 4.7 mg/dl [facility] 05/11/2008 3:55 EST 05/11/2008 4:01 EST Jose Alejandro Castro MD CHEMISTRY & BLOOD GA S ORDERABLES Performing Organization Address [facility] Co de Phone Number [facility] [address] [place] [address] * MAGNESIUM (05/11/2008 3:55 EST) Magnesium 1.7 1.7 - 2.8 mg/dl [facility] 05/11/2008 3:55 EST 05/11/2008 4:01 EST Jose Alejandro Castro MD CHEMISTRY & BLOOD GA S ORDERABLES Performing Organization Address [facility] Co de Phone Number [facility] [address] [place] [address] * CREATININE (05/11/2008 3:55 EST) Creatinine 0.60 0.6 - 1.2 mg/dl [facility] GFR, Calculated Age <18 ml/min/1.7 3m2 [facility] 05/11/2008 3:55 EST 05/11/2008 4:01 EST Jose Alejandro Castro MD CHEMISTRY & BLOOD GA S ORDERABLES Performing Organization Address [facility] de Phone Number [facility] [address] [place] [address] * BUN (05/11/2008 3:55 EST) BUN 17 8 - 21 mg/dl [facility] 05/11/2008 3:55 EST 05/11/2008 4:01 EST Jose Alejandro Castro MD CHEMISTRY & BLOOD GA S ORDERABLES Performing Organization Address [facility] de Phone Number [facility] [address] [place] [address] * ELECTROLYTES (05/11/2008 3:55 EST) Sodium 139 136 - 145 mEq/L [facility] Potassium 4.0 3.5 - 5.0 mEq/L [facility] Chloride 107 96 - 110 mEq/L [facility] CO2 25 24 - 32 mEq/L [facility] 05/11/2008 3:55 EST 05/11/2008 4:01 EST Jose Alejandro Castro MD CHEMISTRY & BLOOD GA S ORDERABLES Performing Organization Address [facility] Co de Phone Number [facility] [address] [place] [address] * (ABNORMAL) HEMAGRAM AND DIFFERENTIAL (05/11/2008 3:55 EST) WBC 15.84(H) 4.6 - 11.2 K/cmm [facility] RBC 3.34(L) 4.50 - 5.30 M/cmm [facility] Hemoglobin 8.7(L) 13.0 - 16.0 gm/dl [facility] HCT 26.0(L) 37.0 - 49.0 % [facility] MCV 78 78 - 98 fl [facility] MCH 26.1 pg [facility] MCHC 33.5 gm/dl [facility] PLT 85(L) 156 - 312 K/cmm [facility] RDW-CV 17.3 % [facility] Neutrophils 89.0 % [facility] % Bands 1.0 % [facility] Lymphocytes 6.0 % [facility] Monocytes 4.0 % [facility] ABS Neutrophils 14.10 K/cmm [facility] ABS Bands 0.16 K/cmm [facility] ABS Lymphs 0.95 K/cmm [facility] ABS Monocytes 0.63 K/cmm [facility] RBC Morphology 1+ Anisocytosis 1+ Poikilocytosis 1+ Microcytes [facility] WBC Morphology 1+ Dohle bodies [facility] Type of Diff: Manual [facility] 05/11/2008 3:55 EST 05/11/2008 4:01 EST Jose Alejandro Castro MD PACKAGES & DNA PROBE ORDERABLES Performing Organization Address [facility] de Phone Number [facility] [address] [place] [address] * CALCIUM IONIZED (05/11/2008 3:55 EST) Ionized Calcium Note Sample sent to Lab. [facility] 05/11/2008 3:55 EST 05/11/2008 4:01 EST Jose Alejandro Castro MD CHEMISTRY & BLOOD GA S ORDERABLES Performing Organization Address [facility] Co de Phone Number [facility] [address] [place] [address] * CALCIUM, IONIZED (05/11/2008 0:56 EST) Calcium, Ionized 1.21 1.12 - 1.32 mmol/L [facility] staff [place] [id number] Test performed by Chemistry [facility] 05/11/2008 0:56 EST 05/11/2008 0:59 EST Jose Alejandro Castro MD CHEMISTRY & BLOOD GA S ORDERABLES Performing Organization Address [facility] Phone Number [facility] [address] [place] [address] * (ABNORMAL) GLUCOSE, SERUM (05/11/2008 0:20 EST) Glucose, Serum 131(H) 70 - 100 mg/dl [facility] 05/11/2008 0:20 EST 05/11/2008 0:36 EST Jose Alejandro Castro MD CHEMISTRY & BLOOD GA S ORDERABLES Performing Organization Address [facility] Phone Number [facility] [address] [place] [address] * PHOSPHORUS (05/11/2008 0:20 EST) Phosphorus 2.9 2.7 - 4.7 mg/dl [facility] 05/11/2008 0:20 EST 05/11/2008 0:36 EST Jose Alejandro Castro MD CHEMISTRY & BLOOD GA S ORDERABLES Performing Organization Address [facility] Phone Number [facility] [address] [place] [address] * MAGNESIUM (05/11/2008 0:20 EST) Magnesium 1.7 1.7 - 2.8 mg/dl [facility] 05/11/2008 0:20 EST 05/11/2008 0:36 EST Jose Alejandro Castro MD CHEMISTRY & BLOOD GA S ORDERABLES Performing Organization Address [facility]/State/ZIP Co de Phone Number [facility] [address] [place] [address] * ELECTROLYTES (05/11/2008 0:20 EST) Sodium 139 136 - 145 mEq/L [facility] Potassium 4.2 3.5 - 5.0 mEq/L [facility] Chloride 105 96 - 110 mEq/L [facility] CO2 28 24 - 32 mEq/L [facility] 05/11/2008 0:20 EST 05/11/2008 0:36 EST Jose Alejandro Castro MD CHEMISTRY & BLOOD GA S ORDERABLES Performing Organization Address [facility] Co de Phone Number [facility] [address] [place] [address] * CALCIUM IONIZED (05/11/2008 0:20 EST) Ionized Calcium Note Sample sent to Lab. [facility] 05/11/2008 0:20 EST 05/11/2008 0:36 EST Jose Alejandro Castro MD CHEMISTRY & BLOOD GA S ORDERABLES Performing Organization Address [facility] Co de Phone Number [facility] [address] [place] [address] * CALCIUM, IONIZED (05/10/2008 20:18 EST) Calcium, Ionized 1.19 1.12 - 1.32 mmol/L [facility] staff design [place] [id number] Test performed by Chemistry [facility] 05/10/2008 20:1 8 EST 05/10/2008 20:20 EST Jose Alejandro Castro MD CHEMISTRY & BLOOD GA S ORDERABLES Performing Organization Address [facility] Co de Phone Number [facility] [address] [place] [address] * (ABNORMAL) GLUCOSE, SERUM (05/10/2008 19:55 EST) Glucose, Serum 126(H) 70 - 100 mg/dl [facility] 05/10/2008 19:5 5 EST 05/10/2008 20:02 EST Jose Alejandro Castro MD CHEMISTRY & BLOOD GA S ORDERABLES Performing Organization Address [facility] Co de Phone Number [facility] [address] [place] [address] * PHOSPHORUS (05/10/2008 19:55 EST) Phosphorus 2.7 2.7 - 4.7 mg/dl [facility] 05/10/2008 19:5 5 EST 05/10/2008 20:02 EST Jose Alejandro Castro MD CHEMISTRY & BLOOD GA S ORDERABLES Performing Organization Address [facility] de Phone Number [facility] [address] [place] [address] * MAGNESIUM (05/10/2008 19:55 EST) Magnesium 1.7 1.7 - 2.8 mg/dl [facility] 05/10/2008 19:5 5 EST 05/10/2008 20:02 EST Jose Alejandro Castro MD CHEMISTRY & BLOOD GA S ORDERABLES Performing Organization Address [facility] Phone Number [facility] [address] [place] [address] * ELECTROLYTES (05/10/2008 19:55 EST) Sodium 136 136 - 145 mEq/L [facility] Potassium 4.3 3.5 - 5.0 mEq/L [facility] Chloride 103 96 - 110 mEq/L [facility] CO2 25 24 - 32 mEq/L [facility] 05/10/2008 19:5 5 EST 05/10/2008 20:02 EST Jose Alejandro Castro MD CHEMISTRY & BLOOD GA S ORDERABLES Performing Organization Address [facility] Co de Phone Number [facility] [address] [place] [address] * (ABNORMAL) HEMAGRAM AND DIFFERENTIAL (05/10/2008 19:55 EST) WBC 19.67(H) 4.6 - 11.2 K/cmm [facility] RBC 3.48(L) 4.50 - 5.30 M/cmm [facility] Hemoglobin 9.2(L) 13.0 - 16.0 gm/dl [facility] HCT 27.1(L) 37.0 - 49.0 % [facility] MCV 78 78 - 98 fl [facility] MCH 26.3 pg [facility] MCHC 33.9 gm/dl [facility] PLT 84(L) 156 - 312 K/cmm [facility] RDW-CV 17.1 % [facility] Neutrophils 92.0 % [facility] % Bands 2.0 % [facility] Lymphocytes 4.0 % [facility] Monocytes 2.0 % [facility] ABS Neutrophils 18.10 K/cmm [facility] ABS Bands 0.39 K/cmm [facility] ABS Lymphs 0.79 K/cmm [facility] ABS Monocytes 0.39 K/cmm [facility] RBC Morphology 1+ Anisocytosis 1+ Microcytes [facility] Type of Diff: Manual [facility] 05/10/2008 19:5 5 EST 05/10/2008 20:02 EST Jose Alejandro Castro MD PACKAGES & DNA PROBE ORDERABLES Performing Organization Address [facility] Co de Phone Number [facility] [address] [place] [address] * CALCIUM IONIZED (05/10/2008 19:55 EST) Ionized Calcium Note Sample sent to Lab. [facility] 05/10/2008 19:5 5 EST 05/10/2008 20:02 EST Jose Alejandro Castro MD CHEMISTRY & BLOOD GA S ORDERABLES Performing Organization Address City/[facility]/ZIP Co de Phone Number [facility] [address] [place] [address] * CALCIUM, IONIZED (05/10/2008 16:34 EST) Calcium, Ionized 1.19 1.12 - 1.32 mmol/L [place] [place] [id number] Test performed by Chemistry [facility] 05/10/2008 16:3 4 EST 05/10/2008 16:37 EST Jose Alejandro Castro MD CHEMISTRY & BLOOD GA S ORDERABLES Performing Organization Address City/[facility] Co de Phone Number [facility] [address] [place] [address] * (ABNORMAL) GLUCOSE, SERUM (05/10/2008 16:23 EST) Glucose, Serum 109(H) 70 - 100 mg/dl [facility] 05/10/2008 16:2 3 EST 05/10/2008 16:23 EST Jose Alejandro Castro MD CHEMISTRY & BLOOD GA S ORDERABLES Performing Organization Address [facility] Co de Phone Number [facility] [address] [place] [address] * PHOSPHORUS (05/10/2008 16:23 EST) Phosphorus 3.1 2.7 - 4.7 mg/dl [facility] 05/10/2008 16:2 3 EST 05/10/2008 16:23 EST Jose Alejandro Castro MD CHEMISTRY & BLOOD GA S ORDERABLES Performing Organization Address [facility] Co de Phone Number [facility] [address] [place] [address] * MAGNESIUM (05/10/2008 16:23 EST) Magnesium 1.7 1.7 - 2.8 mg/dl [facility] 05/10/2008 16:2 3 EST 05/10/2008 16:23 EST Jose Alejandro Castro MD CHEMISTRY & BLOOD GA S ORDERABLES Performing Organization Address City/[facility] Co de Phone Number [facility] [address] [place] [address] * (ABNORMAL) ELECTROLYTES (05/10/2008 16:23 EST) Sodium 135(L) 136 - 145 mEq/L [facility] Potassium 4.6 3.5 - 5.0 mEq/L [facility] Chloride 104 96 - 110 mEq/L [facility] CO2 27 24 - 32 mEq/L [facility] 05/10/2008 16:2 3 EST 05/10/2008 16:23 EST Jose Alejandro Castro MD CHEMISTRY & BLOOD GA S ORDERABLES Performing Organization Address [facility] Co de Phone Number [facility] [address] [place] [address] * CALCIUM IONIZED (05/10/2008 16:23 EST) Ionized Calcium Note Sample sent to Lab. [facility] 05/10/2008 16:2 3 EST 05/10/2008 16:23 EST Jose Alejandro Castro MD CHEMISTRY & BLOOD GA S ORDERABLES Performing Organization Address [facility] Co de Phone Number [facility] [address] [place] [address] * (ABNORMAL) GLUCOSE, GLUCOMETER (05/10/2008 16:16 EST) Glucose, Fingerstick 126(H) 70 - 100 mg/dl [facility] [employer] Grader [place] [id number] Test Performed by Nursing Services [facility] 05/10/2008 16:1 6 EST 05/10/2008 23:15 EST Jsoe Alejandro Castro MD CHEMISTRY & BLOOD GA S ORDERABLES Performing Organization Address [facility] Co de Phone Number [facility] [address] [place] [address] * (ABNORMAL) BLOOD GAS, G3 ISTAT (05/10/2008 13:08 EST) pH, i-STAT 7.42 7.35 - 7.45 [facility] pCO2, i-STAT 38 35 - 45 mmHg [facility] pO2, i-STAT 31(L) 85 - 100 mmHg [facility] TCO2, i-STAT 26 mEq/L [facility] O2 Saturation 67 % [facility] Base Excess 0 [facility] Temperature 35.3 C [facility] FIO2 21 [facility] Sample Type VENOUS [facility] staff design engineer ID [id number] Test Performed by Respiratory [facility] 05/10/2008 13:0 8 EST 05/10/2008 13:17 EST Jose Alejandro Castro MD CHEMISTRY & BLOOD GA S ORDERABLES Performing Organization Address [facility] de Phone Number [facility] [address] [place] [address] * SODIUM, URINE RANDOM (05/10/2008 12:27 EST) Pathologist [facility] Sodium, Ur 65.0 mEq/L [facility] 05/10/2008 12:2 7 EST 05/10/2008 12:30 EST Jose Alejandro Castro MD URINALYSIS ORDERABLE S Performing Organization Address [facility] Co de Phone Number [facility] [address] [place] [address] * CALCIUM, IONIZED (05/10/2008 12:27 EST) Pathologist [facility] Calcium, Ionized 1.19 1.12 - 1.32 mmol/L [facility] [place] [id number] Test performed by Chemistry [facility] 05/10/2008 12:2 7 EST 05/10/2008 12:53 EST Jose Alejandro Castro MD CHEMISTRY & BLOOD GA S ORDERABLES Performing Organization Address [facility] de Phone Number [facility] [address] [place] [address] * (ABNORMAL) GLUCOSE, GLUCOMETER (05/10/2008 12:03 EST) Glucose, Fingerstick 120(H) 70 - 100 mg/dl [facility] [employer] Grader [place] [id number] Test Performed by Nursing Services [facility] 05/10/2008 12:0 3 EST 05/10/2008 23:15 EST Jose Alejandro Castro MD CHEMISTRY & BLOOD GA S ORDERABLES Performing Organization Address [facility] Phone Number [facility] [address] [place] [address] * PHOSPHORUS (05/10/2008 11:28 EST) Phosphorus 2.9 2.7 - 4.7 mg/dl [facility] Comment:Heparinized plasma. 05/10/2008 11:2 8 EST 05/10/2008 12:14 EST Jose Alejandro Castro MD CHEMISTRY & BLOOD GA S ORDERABLES Performing Organization Address [facility] Phone Number [facility] [address] [place] [address] * MAGNESIUM (05/10/2008 11:28 EST) Magnesium 1.8 1.7 - 2.8 mg/dl [facility] Comment:Heparinized plasma. 05/10/2008 11:2 8 EST 05/10/2008 12:14 EST Jose Alejandro Castro MD CHEMISTRY & BLOOD GA S ORDERABLES Performing Organization Address [facility] Phone Number [facility] [address] [place] [address] * GLUCOSE, SERUM (05/10/2008 11:28 EST) Glucose, Serum 97 70 - 100 mg/dl [facility] Comment:Heparinized plasma. 05/10/2008 11:2 8 EST 05/10/2008 12:14 EST Jose Alejandro Castro MD CHEMISTRY & BLOOD GA S ORDERABLES Performing Organization Address [facility] Phone Number [facility] [address] [place] [address] * (ABNORMAL) ELECTROLYTES (05/10/2008 11:28 EST) Sodium 134(L) 136 - 145 mEq/L [facility] Comment:Heparinized plasma. Potassium 4.6 3.5 - 5.0 mEq/L [facility] Comment:Heparinized plasma. Chloride 104 96 - 110 mEq/L [facility] Comment:Heparinized plasma. CO2 25 24 - 32 mEq/L [facility] Comment:Heparinized plasma. 05/10/2008 11:2 8 EST 05/10/2008 12:14 EST Jose Alejandro Castro MD CHEMISTRY & BLOOD GA S ORDERABLES Performing Organization Address [facility] de Phone Number [facility] [address] [place] [address] * CALCIUM IONIZED (05/10/2008 11:28 EST) Pathologist [facility] Ionized Calcium Note Sample sent to Lab. [facility] 05/10/2008 11:2 8 EST 05/10/2008 12:14 EST Jose Alejandro Castro MD CHEMISTRY & BLOOD GA S ORDERABLES Performing Organization Address [facility] de Phone Number [facility] [address] [place] [address] * GLUCOSE, GLUCOMETER (05/10/2008 9:44 EST) Glucose, Fingerstick 95 70 - 100 mg/dl [facility] [employer] Cream Grader [place] [id number] Test Performed by Nursing Services [facility] 05/10/2008 9:44 EST 05/10/2008 23:15 EST Jose Alejandro Castro MD CHEMISTRY & BLOOD GA S ORDERABLES Performing Organization Address [facility] Co de Phone Number [facility] [address] [place] [address] * CALCIUM, IONIZED (05/10/2008 8:33 EST) Pathologist [facility] Calcium, Ionized 1.20 1.12 - 1.32 mmol/L [facility] staff design [place] [id number] Test performed by Chemistry [facility] 05/10/2008 8:33 EST 05/10/2008 8:36 EST Jose Alejandro Castro MD CHEMISTRY & BLOOD GA S ORDERABLES Performing Organization Address [facility] Phone Number [facility] [address] [place] [address] * (ABNORMAL) BLOOD GAS, CG4 ISTAT (05/10/2008 8:29 EST) pH, i-STAT 7.40 7.35 - 7.45 [facility] pCO2, i-STAT 34(L) 35 - 45 mmHg [facility] pO2, i-STAT 79(L) 85 - 100 mmHg [facility] TCO2, i-STAT 23 mEq/L [facility] O2 Saturation 97 % [facility] Lactate, i-STAT 1.1 mmol/L [facility] Base Deficit 3 [facility] Temperature 34.8 C [facility] FIO2 25 [facility] Sample Type ARTERIAL [facility] staff design engineer ID [id number] Test Performed by Respiratory [facility] 05/10/2008 8:29 EST 05/10/2008 8:33 EST Jose Alejandro Castro MD CHEMISTRY & BLOOD GA S ORDERABLES Performing Organization Address [facility] Phone Number [facility] [address] [place] [address] * TESTS ADDED BY PHONE (05/10/2008 8:28 EST) Tests to be added STAT MG,PHOS [facility] Who Called JOSELUIS FOR DR TON[facility] Location Code M3 [facility] 05/10/2008 8:28 EST 05/10/2008 8:28 EST Jose Alejandro Castro MD CHEMISTRY & BLOOD GA S ORDERABLES Performing Organization Address City/[facility] Co de Phone Number [facility] [address] [place] [address] * (ABNORMAL) ELECTROLYTES (05/10/2008 8:28 EST) Sodium 135(L) 136 - 145 mEq/L [facility] Potassium 4.6 3.5 - 5.0 mEq/L [facility] Chloride 104 96 - 110 mEq/L [facility] CO2 26 24 - 32 mEq/L [facility] 05/10/2008 8:28 EST 05/10/2008 8:28 EST Jose Alejandro Castro MD CHEMISTRY & BLOOD GA S ORDERABLES Performing Organization Address [facility] Co de Phone Number [facility] [address] [place] [address] * CALCIUM IONIZED (05/10/2008 8:28 EST) Ionized Calcium Note Sample sent to Lab. [facility] 05/10/2008 8:28 EST 05/10/2008 8:28 EST Jose Alejandro Castro MD CHEMISTRY & BLOOD GA S ORDERABLES Performing Organization Address [facility] Co de Phone Number [facility] [address] [place] [address] * PHOSPHORUS (05/10/2008 8:28 EST) Phosphorus 3.1 2.7 - 4.7 mg/dl [facility] 05/10/2008 8:28 EST 05/10/2008 8:28 EST Jose Alejandro Castro MD CHEMISTRY & BLOOD GA S ORDERABLES Performing Organization Address [facility] Co de Phone Number [facility] [address] [place] [address] * MAGNESIUM (05/10/2008 8:28 EST) Magnesium 1.8 1.7 - 2.8 mg/dl [facility] 05/10/2008 8:28 EST 05/10/2008 8:28 EST Jose Alejandro Castro MD CHEMISTRY & BLOOD GA S ORDERABLES Performing Organization Address [facility] Co de Phone Number [facility] [address] [place] [address] * (ABNORMAL) GLUCOSE, GLUCOMETER (05/10/2008 8:27 EST) Glucose, Fingerstick 102(H) 70 - 100 mg/dl [facility] Milk [employer] Cream Grader ID [id number] Test Performed by Nursing Services [facility] 05/10/2008 8:27 EST 05/10/2008 23:15 EST Jose Alejandro Castro MD CHEMISTRY & BLOOD GA S ORDERABLES Performing Organization Address [facility] Phone Number [facility] [address] [place] [address] * (ABNORMAL) BLOOD GAS, G3 ISTAT (05/10/2008 8:19 EST) pH, i-STAT 7.43 7.35 - 7.45 [facility] pCO2, i-STAT 37 35 - 45 mmHg [facility] pO2, i-STAT 36(L) 85 - 100 mmHg [facility] TCO2, i-STAT 26 mEq/L [facility] O2 Saturation 77 % [facility] Base Excess 0 [facility] Temperature 34.8 C [facility] FIO2 25 [facility] Sample Type VENOUS [facility] staff design engineer ID [id number] Test Performed by Respiratory [facility] 05/10/2008 8:19 EST 05/10/2008 8:33 EST Jose Alejandro Castro MD CHEMISTRY & BLOOD GA S ORDERABLES Performing Organization Address [facility] Co de Phone Number [facility] [address] [place] [address] * PORTABLE CHEST 1 VIEW (05/10/2008 7:24 EST) Anatomical Region Laterality Modality Other 05/10/2008 7:24 EST Narrative 11/21/2008 8:29 EDT acute resp failure cardex order r/o infiltrate PORTABLE CHEST 1 VIEW ??May 10, 2008 7:24:00 AM Signs and Symptoms: ??acute resp failure cardex order r/o infiltrate Comparisons: May 08 Findings: Bibasilar airspace opacities have improved slightly over the past 2 days and likely represent predominantly atelectasis. The lungs are clear elsewhere. The cardiac silhouette and pulmonary vascularity are normal. The endotracheal tube tip is about 2 cm above the davon. The tip of the NG tube is probably in the duodenal bulb. Procedure Note Hamzah Torres, [facility] - 11/21/2008 acute resp failure cardex order r/o infiltrate PORTABLE CHEST 1 VIEW May 10, 2008 7:24:00 AM Signs and Symptoms: acute resp failure cardex order r/o infiltrate Comparisons: May 08 Findings: Bibasilar airspace opacities have improved slightly over the past 2 days and likely represent predominantly atelectasis. The lungs are clear elsewhere. The cardiac silhouette and pulmonary vascularity are normal. The endotracheal tube tip is about 2 cm above the davon. The tip of the NG tube is probably in the duodenal bulb. Jose Alejandro Castro MD IMG DIAGNOSTIC IMAGI NG ORDERABLES * GLUCOSE, GLUCOMETER (05/10/2008 7:02 EST) Glucose, Fingerstick 83 70 - 100 mg/dl [facility] [employer] Grader ID [id number] Test Performed by Nursing Services [facility] 05/10/2008 7:02 EST 05/10/2008 23:15 EST Jose Alejandro Castro MD CHEMISTRY & BLOOD GA S ORDERABLES [facility] [address] [place] [address] * (ABNORMAL) GLUCOSE, GLUCOMETER (05/10/2008 6:11 EST) Glucose, Fingerstick 110(H) 70 - 100 mg/dl [facility] [employer] Grader [place] [id number] Test Performed by Nursing Services [facility] 05/10/2008 6:11 EST 05/10/2008 23:15 EST Jose Alejandro Castro MD CHEMISTRY & BLOOD GA S ORDERABLES Performing Organization Address [facility] Co de Phone Number [facility] [address] [place] [address] * CALCIUM, IONIZED (05/10/2008 5:24 EST) Calcium, Ionized 1.13 1.12 - 1.32 mmol/L [facility] staff design engineer [place] [id number] Test performed by Chemistry [facility] 05/10/2008 5:24 EST 05/10/2008 5:33 EST Jose Alejandro Castro MD CHEMISTRY & BLOOD GA S ORDERABLES Performing Organization Address [facility] de Phone Number [facility] [address] [place] [address] * (ABNORMAL) BLOOD GAS, G3 ISTAT (05/10/2008 5:04 EST) pH, i-STAT 7.38 7.35 - 7.45 [facility] pCO2, i-STAT 40 35 - 45 mmHg [facility] pO2, i-STAT 36(L) 85 - 100 mmHg [facility] TCO2, i-STAT 25 mEq/L [facility] O2 Saturation 71 % [facility] Base Deficit 2 [facility] Temperature 36.0 C [facility] FIO2 25 [facility] Sample Type VENOUS [facility] staff design engineer ID [id number] Test Performed by Respiratory [facility] 05/10/2008 5:04 EST 05/10/2008 5:38 EST Jose Alejadnro Castro MD CHEMISTRY & BLOOD GA S ORDERABLES Performing Organization Address [facility] Co de Phone Number [facility] [address] [place] [address] * (ABNORMAL) GLUCOSE, GLUCOMETER (05/10/2008 5:02 EST) Pathologist [facility] Glucose, Fingerstick 110(H) 70 - 100 mg/dl [facility] [employer]ader ID [id number] Test Performed by Nursing Services [facility] 05/10/2008 5:02 EST 05/10/2008 23:15 EST Jose Alejandro Castro MD CHEMISTRY & BLOOD GA S ORDERABLES Performing Organization Address [facility] de Phone Number [facility] [address] [place] [address] * TROPONIN I (05/10/2008 5:00 EST) [facility] Troponin I pre 2012 0.19 ng/ml [facility] Comment: Reference Range: Normal: ??Less than 0.05 Indeterminate: ??0.05-0.80 Positive: ??Greater than 0.80 05/10/2008 5:00 EST 05/10/2008 5:11 EST Jose Alejandro Castro MD CHEMISTRY & BLOOD GA S ORDERABLES Performing Organization Address [facility] Phone Number [facility] [address] [place] [address] * (ABNORMAL) CK MB WITH TOTAL CK (05/10/2008 5:00 EST) [facility] CK 3,919 U/L [facility] MB 38.9(H) 0 - 5.0 ng/ml [facility] CK-MB Index 1.0 0 - 2.5 [facility] 05/10/2008 5:00 EST 05/10/2008 5:11 EST Jose Alejandro Castro MD CHEMISTRY & BLOOD GA S ORDERABLES Performing Organization Address [facility] de Phone Number [facility] [address] [place] [address] * (ABNORMAL) TOTAL PROTEIN (05/10/2008 5:00 EST) [facility] Total Protein 4.2(L) 6.3 - 8.6 g/dl [facility] 05/10/2008 5:00 EST 05/10/2008 5:11 EST Jose Alejandro Castro MD CHEMISTRY & BLOOD GA S ORDERABLES Performing Organization Address [facility] Co hi Phone Number [facility] [address] [place] [address] * GLUCOSE, SERUM (05/10/2008 5:00 EST) Glucose, Serum 97 70 - 100 mg/dl [facility] 05/10/2008 5:00 EST 05/10/2008 5:11 EST Jose Alejandro Castro MD CHEMISTRY & BLOOD GA S ORDERABLES Performing Organization Address [facility] Phone Number [facility] [address] [place] [address] * PHOSPHORUS (05/10/2008 5:00 EST) Phosphorus 3.3 2.7 - 4.7 mg/dl [facility] 05/10/2008 5:00 EST 05/10/2008 5:11 EST Jose Alejandro Castro MD CHEMISTRY & BLOOD GA S ORDERABLES Performing Organization Address [facility] Phone Number [facility] [address] [place] [address] * MAGNESIUM (05/10/2008 5:00 EST) Magnesium 1.8 1.7 - 2.8 mg/dl [facility] 05/10/2008 5:00 EST 05/10/2008 5:11 EST Jose Alejandro Castro MD CHEMISTRY & BLOOD GA S ORDERABLES Performing Organization Address [facility] Co de Phone Number [facility] [address] [place] [address] * GGT (05/10/2008 5:00 EST) GGT 23 10 - 35 U/L [facility] 05/10/2008 5:00 EST 05/10/2008 5:11 EST Jose Alejandro Castro MD CHEMISTRY & BLOOD GA S ORDERABLES Performing Organization Address [facility] Co de Phone Number [facility] [address] [place] [address] * CREATININE (05/10/2008 5:00 EST) Creatinine 0.70 0.6 - 1.2 mg/dl [facility] GFR, Calculated Age <18 ml/min/1.7 3m2 [facility] 05/10/2008 5:00 EST 05/10/2008 5:11 EST Jose Alejandro Castro MD CHEMISTRY & BLOOD GA S ORDERABLES Performing Organization Address [facility] de Phone Number [facility] [address] [place] [address] * BUN (05/10/2008 5:00 EST) BUN 18 8 - 21 mg/dl [facility] 05/10/2008 5:00 EST 05/10/2008 5:11 EST Jose Alejandro Castro MD CHEMISTRY & BLOOD GA S ORDERABLES Performing Organization Address [facility] Phone Number [facility] [address] [place] [address] * (ABNORMAL) AST (05/10/2008 5:00 EST) AST 202(H) 15 - 46 U/L [facility] 05/10/2008 5:00 EST 05/10/2008 5:11 EST Jose Alejandro Castro MD CHEMISTRY & BLOOD GA S ORDERABLES Performing Organization Address [facility] Co de Phone Number [facility] [address] [place] [address] * (ABNORMAL) ALT (05/10/2008 5:00 EST) ALT 82(H) 0 - 45 U/L [facility] 05/10/2008 5:00 EST 05/10/2008 5:11 EST Jose Alejandro Castro MD CHEMISTRY & BLOOD GA S ORDERABLES Performing Organization Address [facility] Phone Number [facility] [address] [place] [address] * ALKALINE PHOSPHATASE (05/10/2008 5:00 EST) Alkaline Phosphatase 112 65 - 260 U/L [facility] 05/10/2008 5:00 EST 05/10/2008 5:11 EST Jose Alejandro Castro MD CHEMISTRY & BLOOD GA S ORDERABLES Performing Organization Address [facility] Phone Number [facility] [address] [place] [address] * (ABNORMAL) ALBUMIN (05/10/2008 5:00 EST) Albumin 2.1(L) 3.0 - 5.5 g/dl [facility] 05/10/2008 5:00 EST 05/10/2008 5:11 EST Jose Alejandro Castro MD CHEMISTRY & BLOOD GA S ORDERABLES Performing Organization Address [facility] Phone Number [facility] [address] [place] [address] * (ABNORMAL) ELECTROLYTES (05/10/2008 5:00 EST) Sodium 134(L) 136 - 145 mEq/L [facility] Potassium 4.7 3.5 - 5.0 mEq/L [facility] Chloride 106 96 - 110 mEq/L [facility] CO2 24 24 - 32 mEq/L [facility] [facility] 05/10/2008 5:00 EST 05/10/2008 5:11 EST Jose Alejandro Castro MD CHEMISTRY & BLOOD GA S ORDERABLES Performing Organization Address [facility] Phone Number [facility] [address] [id number] * (ABNORMAL) HEMAGRAM AND DIFFERENTIAL (05/10/2008 5:00 EST) WBC 24.49(H) 4.6 - 11.2 K/cmm [facility] RBC 3.15(L) 4.50 - 5.30 M/cmm [facility] Hemoglobin 8.3(L) 13.0 - 16.0 gm/dl [facility] HCT 24.5(L) 37.0 - 49.0 % [facility] MCV 78 78 - 98 fl [facility] MCH 26.4 pg [facility] MCHC 34.0 gm/dl [facility] PLT 86(L) 156 - 312 K/cmm [facility] RDW-CV 17.4 % [facility] Neutrophils 86.0 % [facility] % Bands 7.0 % [facility] Lymphocytes 5.0 % [facility] Monocytes 2.0 % [facility] ABS Neutrophils 21.07 K/cmm [facility] ABS Bands 1.71 K/cmm [facility] ABS Lymphs 1.22 K/cmm [facility] ABS Monocytes 0.49 K/cmm [facility] RBC Morphology 1+ Anisocytosis 1+ Microcytes 1+ Poikilocytosis [facility] WBC Morphology 1+ Toxic granulation [facility] Type of Diff: Manual TRUE [facility] 05/10/2008 5:00 EST 05/10/2008 5:11 EST Jose Alejandro Castro MD PACKAGES & DNA PROBE ORDERABLES [facility] [address] [place] [address] * (ABNORMAL) PTT (05/10/2008 5:00 EST) PTT 38(H) 20 - 35 secs [facility] Comment:Therapeutic Heparin range: 60-100 seconds 05/10/2008 5:00 EST 05/10/2008 5:11 EST Jose Alejandro Castro MD HEMATOLOGY & PF4 ORD ERABLES Performing Organization Address [facility] Co de Phone Number [facility] [address] [place] [address] * (ABNORMAL) PROTIME (05/10/2008 5:00 EST) Pro Time 16.6(H) 12.0 - 15.0 secs [facility] I.N.R. 1.3(H) 0.9 - 1.1 Ratio [facility] Comment: Moderate Intensity Coumadin INR = 2.0-3.0 Adjustments in anticoagulant therapy dose should be based upon the INR and NOT the Pro Time. 05/10/2008 5:00 EST 05/10/2008 5:11 EST Jose Alejandro Castro MD HEMATOLOGY & PF4 ORD ERABLES Performing Organization Address [facility] Co de Phone Number [facility] [address] [place] [address] * CALCIUM IONIZED (05/10/2008 5:00 EST) Ionized Calcium Note Sample sent to Lab. [facility] 05/10/2008 5:00 EST 05/10/2008 5:11 EST Jose Alejandro Castro MD CHEMISTRY & BLOOD GA S ORDERABLES Performing Organization Address [facility] Co de Phone Number [facility] [address] [place] [address] * (ABNORMAL) BLOOD GAS, CG4 ISTAT (05/10/2008 4:59 EST) pH, i-STAT 7.41 7.35 - 7.45 [facility] pCO2, i-STAT 34(L) 35 - 45 mmHg [facility] pO2, i-STAT 102(H) 85 - 100 mmHg [facility] TCO2, i-STAT 23 mEq/L [facility] O2 Saturation 98 % [facility] Lactate, i-STAT 1.1 mmol/L [facility] Base Deficit 3 [facility] Temperature 36.0 C [facility] FIO2 25 [facility] Sample Type ARTERIAL [facility]IS[facility] staff design engineer ID [id number] Test Performed by Respiratory [facility] 05/10/2008 4:59 EST 05/10/2008 5:38 EST Jose Alejandro Castro MD CHEMISTRY & BLOOD GA S ORDERABLES Performing Organization Address [facility] de Phone Number [facility] [address] [place] [address] * GLUCOSE, GLUCOMETER (05/10/2008 4:03 EST) Glucose, Fingerstick 87 70 - 100 mg/dl [facility] [employer] Cream Grader ID [id number] Test Performed by Nursing Services [facility] 05/10/2008 4:03 EST 05/10/2008 23:15 EST Jose Alejandro Castro MD CHEMISTRY & BLOOD GA S ORDERABLES Performing Organization Address [facility] Co de Phone Number [facility] [address] [place] [address] * (ABNORMAL) GLUCOSE, GLUCOMETER (05/10/2008 3:00 EST) Glucose, Fingerstick 68(L) 70 - 100 mg/dl [facility] [employer] Grader [place] [id number] Test Performed by Nursing Services [facility] 05/10/2008 3:00 EST 05/10/2008 23:15 EST Jose Alejandro Castro MD CHEMISTRY & BLOOD GA S ORDERABLES Performing Organization Address [facility] Co de Phone Number [facility] [address] [place] [address] * (ABNORMAL) GLUCOSE, GLUCOMETER (05/10/2008 2:03 EST) Glucose, Fingerstick 116(H) 70 - 100 mg/dl [facility] [employer] Grader ID [id number] Test Performed by Nursing Services [facility] 05/10/2008 2:03 EST 05/10/2008 23:15 EST Jose Alejandro Castro MD CHEMISTRY & BLOOD GA S ORDERABLES Performing Organization Address [facility] Co de Phone Number [facility] [address] [place] [address] * (ABNORMAL) BLOOD GAS, CG4 ISTAT (05/10/2008 1:22 EST) pH, i-STAT 7.37 7.35 - 7.45 [facility] pCO2, i-STAT 34(L) 35 - 45 mmHg [facility] pO2, i-STAT 112(H) 85 - 100 mmHg [facility] TCO2, i-STAT 21 mEq/L [facility] O2 Saturation 98 % [facility] Lactate, i-STAT 0.7 mmol/L [facility] Base Deficit 5 [facility] Temperature 36.4 C [facility] FIO2 25 [facility] Sample Type ARTERIAL [facility]IS[facility] staff design engineer ID [id number] Test Performed by Respiratory [facility] 05/10/2008 1:22 EST 05/10/2008 1:26 EST Jose Alejandro Castro MD CHEMISTRY & BLOOD GA S ORDERABLES Performing Organization Address [facility] de Phone Number [facility] [address] [place] [address] * (ABNORMAL) GLUCOSE, GLUCOMETER (05/10/2008 1:21 EST) Glucose, Fingerstick 130(H) 70 - 100 mg/dl [facility] [employer] [place] [id number] Test Performed by Nursing Services [facility] 05/10/2008 1:21 EST 05/10/2008 23:15 EST Jose Alejandro Castro MD CHEMISTRY & BLOOD GA S ORDERABLES Performing Organization Address [facility] Co de Phone Number [facility] [address] [place] [address] * CALCIUM, IONIZED (05/10/2008 1:20 EST) Calcium, Ionized 1.15 1.12 - 1.32 mmol/L [facility] staff design [place] [id number] Test performed by Chemistry [facility] 05/10/2008 1:20 EST 05/10/2008 1:23 EST Jose Alejandro Castro MD CHEMISTRY & BLOOD GA S ORDERABLES Performing Organization Address [facility] Co de Phone Number [facility] [address] [place] [address] * (ABNORMAL) BLOOD GAS, G3 ISTAT (05/10/2008 1:17 EST) pH, i-STAT 7.37 7.35 - 7.45 [facility] pCO2, i-STAT 38 35 - 45 mmHg [facility] pO2, i-STAT 39(L) 85 - 100 mmHg [facility] TCO2, i-STAT 23 mEq/L [facility] R [facility] O2 Saturation 74 % [facility] Base Deficit 3 [facility] R [facility] Temperature 36.4 C [facility] FIO2 25 [facility] Sample Type VENOUS ANISHA MCFARLAND staff design engineer ID [id number] Test Performed by Respiratory [facility] 05/10/2008 1:17 EST 05/10/2008 1:26 EST Jose Alejandro Castro MD CHEMISTRY & BLOOD GA S ORDERABLES Performing Organization Address [facility] Co de Phone Number [facility] [address] [place] [address] * (ABNORMAL) BLOOD GAS, CG4 ISTAT (05/10/2008 1:12 EST) pH, i-STAT 7.38 7.35 - 7.45 [facility] pCO2, i-STAT 33(L) 35 - 45 mmHg [facility] pO2, i-STAT 105(H) 85 - 100 mmHg [facility] TCO2, i-STAT 20 mEq/L [facility] O2 Saturation 98 % [facility] Lactate, i-STAT 0.6 mmol/L FLENoe [facility] Base Deficit 5 [facility]TC[facility] R [facility] Temperature 36.4 C [facility] FIO2 25 [facility] Sample Type ARTERIAL [facility] staff design engineer ID [id number] Test Performed by Respiratory [facility] 05/10/2008 1:12 EST 05/10/2008 1:26 EST Jose Alejandro Castro MD CHEMISTRY & BLOOD GA S ORDERABLES Performing Organization Address [facility] de Phone Number [facility] [address] [place] [address] * PHOSPHORUS (05/10/2008 1:10 EST) Phosphorus 3.1 2.7 - 4.7 mg/dl [facility] 05/10/2008 1:10 EST 05/10/2008 1:17 EST Jose Alejandro Castro MD CHEMISTRY & BLOOD GA S ORDERABLES Performing Organization Address [facility] de Phone Number [facility] [address] [place] [address] * MAGNESIUM (05/10/2008 1:10 EST) Magnesium 1.9 1.7 - 2.8 mg/dl [facility] 05/10/2008 1:10 EST 05/10/2008 1:17 EST Jose Alejandro Castro MD CHEMISTRY & BLOOD GA S ORDERABLES Performing Organization Address [facility] de Phone Number [facility] [address] [place] [address] * (ABNORMAL) ELECTROLYTES (05/10/2008 1:10 EST) Sodium 134(L) 136 - 145 mEq/L [facility] Potassium 5.1(H) 3.5 - 5.0 mEq/L [facility] Chloride 105 96 - 110 mEq/L [facility] CO2 21(L) 24 - 32 mEq/L [facility] 05/10/2008 1:10 EST 05/10/2008 1:17 EST Jose Alejandro Castro MD CHEMISTRY & BLOOD GA S ORDERABLES Performing Organization Address [facility]/ZIP Co de Phone Number [facility] [address] [place] [address] * CALCIUM IONIZED (05/10/2008 1:10 EST) Ionized Calcium Note Sample sent to Lab. [facility] 05/10/2008 1:10 EST 05/10/2008 1:17 EST Jose Alejandro Castro MD CHEMISTRY & BLOOD GA S ORDERABLES Performing Organization Address City/[facility]/ZIP Co de Phone Number [facility] [address] [place] [address] * (ABNORMAL) GLUCOSE, GLUCOMETER (05/10/2008 0:20 EST) Glucose, Fingerstick 115(H) 70 - 100 mg/dl [facility] [employer] Grader [place] [id number] Test Performed by Nursing Services [facility] 05/10/2008 0:20 EST 05/10/2008 23:14 EST Jose Alejandro Castro MD CHEMISTRY & BLOOD GA S ORDERABLES Performing Organization Address [facility] Co de Phone Number [facility] [address] [place] [address] * (ABNORMAL) GLUCOSE, GLUCOMETER (05/09/2008 23:03 EST) Glucose, Fingerstick 113(H) 70 - 100 mg/dl [facility] [employer] Grader [place] [id number] Test Performed by Nursing Services [facility] 05/09/2008 23:0 3 EST 05/09/2008 23:14 EST Jose Alejandro Castro MD CHEMISTRY & BLOOD GA S ORDERABLES Performing Organization Address [facility] Co de Phone Number [facility] [address] [place] [address] * (ABNORMAL) GLUCOSE, GLUCOMETER (05/09/2008 22:11 EST) Glucose, Fingerstick 118(H) 70 - 100 mg/dl [facility] [employer]ader ID [id number] Test Performed by Nursing Services [facility] 05/09/2008 22:1 1 EST 05/09/2008 23:14 EST Jose Alejandro Castro MD CHEMISTRY & BLOOD GA S ORDERABLES Performing Organization Address [facility] de Phone Number [facility] [address] [place] [address] * (ABNORMAL) CALCIUM, IONIZED (05/09/2008 21:26 EST) Calcium, Ionized 1.08(L) 1.12 - 1.32 mmol/L [facility] staff design engineer [place] [id number] Test performed by Chemistry [facility] 05/09/2008 21:2 6 EST 05/09/2008 21:29 EST Jose Alejandro Castro MD CHEMISTRY & BLOOD GA S ORDERABLES Performing Organization Address [facility] Phone Number [facility] [address] [place] [address] * GLUCOSE, GLUCOMETER (05/09/2008 21:25 EST) Glucose, Fingerstick 87 70 - 100 mg/dl [facility] Milk [employer] Cream Grader ID [id number] Test Performed by Nursing Services [facility] 05/09/2008 21:2 5 EST 05/09/2008 23:14 EST Jose Alejandro Castro MD CHEMISTRY & BLOOD GA S ORDERABLES Performing Organization Address [facility] Phone Number [facility] [address] [place] [address] * (ABNORMAL) BLOOD GAS, G3 ISTAT (05/09/2008 21:15 EST) pH, i-STAT 7.40 7.35 - 7.45 [facility] pCO2, i-STAT 36 35 - 45 mmHg [facility] pO2, i-STAT 44(L) 85 - 100 mmHg [facility] TCO2, i-STAT 23 mEq/L [facility] O2 Saturation 79 % [facility] Base Deficit 2 [facility] Temperature 37.3 C [facility] FIO2 25 [facility] Sample Type VENOUS [facility] staff design engineer ID [id number] Test Performed by Respiratory [facility] 05/09/2008 21:1 5 EST 05/09/2008 21:25 EST Jose Alejandro Castro MD CHEMISTRY & BLOOD GA S ORDERABLES Performing Organization Address [facility] Phone Number [facility] [address] [place] [address] * PHOSPHORUS (05/09/2008 21:10 EST) Phosphorus 2.9 2.7 - 4.7 mg/dl [facility] 05/09/2008 21:1 0 EST 05/09/2008 21:16 EST Jose Alejandro Castro MD CHEMISTRY & BLOOD GA S ORDERABLES Performing Organization Address [facility] Phone Number [facility] [address] [place] [address] * MAGNESIUM (05/09/2008 21:10 EST) Magnesium 1.9 1.7 - 2.8 mg/dl [facility] 05/09/2008 21:1 0 EST 05/09/2008 21:16 EST Jose Alejandro Castro MD CHEMISTRY & BLOOD GA S ORDERABLES Performing Organization Address [facility] Phone Number [facility] [address] [place] [address] * (ABNORMAL) ELECTROLYTES (05/09/2008 21:10 EST) Sodium 134(L) 136 - 145 mEq/L [facility] Potassium 5.7(H) 3.5 - 5.0 mEq/L [facility] Chloride 106 96 - 110 mEq/L [facility] CO2 21(L) 24 - 32 mEq/L [facility] 05/09/2008 21:1 0 EST 05/09/2008 21:16 EST Jose Alejandro Castro MD CHEMISTRY & BLOOD GA S ORDERABLES [facility] [address] [place] [address] * CALCIUM IONIZED (05/09/2008 21:10 EST) Ionized Calcium Note Sample sent to Lab. [facility] 05/09/2008 21:1 0 EST 05/09/2008 21:16 EST Jose Alejandro Castro MD CHEMISTRY & BLOOD GA S ORDERABLES Performing Organization Address [facility] Co de Phone Number [facility] [address] [place] [address] * (ABNORMAL) BLOOD GAS, CG4 ISTAT (05/09/2008 21:09 EST) pH, i-STAT 7.41 7.35 - 7.45 [facility] pCO2, i-STAT 29(L) 35 - 45 mmHg [facility] pO2, i-STAT 94 85 - 100 mmHg [facility] TCO2, i-STAT 19 mEq/L [facility] O2 Saturation 97 % [facility] Lactate, i-STAT 0.6 mmol/L [facility] Base Deficit 6 [facility] Temperature 37.3 C [facility] FIO2 25 [facility] Sample Type ARTERIAL [facility]IS[facility] staff design engineer ID [id number] Test Performed by Respiratory [facility] 05/09/2008 21:0 9 EST 05/09/2008 21:25 EST Jose Alejandro Castro MD CHEMISTRY & BLOOD GA S ORDERABLES Performing Organization Address City/[facility]/ZIP Co de Phone Number [facility] [address] [place] [address] * GLUCOSE, GLUCOMETER (05/09/2008 20:15 EST) Glucose, Fingerstick 94 70 - 100 mg/dl [facility] [employer] Grader ID [id number] Test Performed by Nursing Services [facility] 05/09/2008 20:1 5 EST 05/09/2008 23:14 EST Jose Alejandro Castro MD CHEMISTRY & BLOOD GA S ORDERABLES Performing Organization Address [place]/[facility] Co de Phone Number [facility] [address] [place] [address] * GLUCOSE, GLUCOMETER (05/09/2008 19:03 EST) Glucose, Fingerstick 84 70 - 100 mg/dl [facility] [employer] Grader ID [id number] Test Performed by Nursing Services [facility] 05/09/2008 19:0 3 EST 05/09/2008 23:14 EST Jose Alejandro Castro MD CHEMISTRY & BLOOD GA S ORDERABLES Performing Organization Address [facility] Co de Phone Number [facility] [address] [place] [address] * GLUCOSE, GLUCOMETER (05/09/2008 18:09 EST) Glucose, Fingerstick 72 70 - 100 mg/dl [facility] Milk And Cream Grader ID [id number] Test Performed by Nursing Services [facility] 05/09/2008 18:0 9 EST 05/09/2008 23:14 EST Jose Alejandro Castro MD CHEMISTRY & BLOOD GA S ORDERABLES Performing Organization Address [facility] Co de Phone Number [facility] [address] [place] [address] * CALCIUM, IONIZED (05/09/2008 17:20 EST) Calcium, Ionized 1.12 1.12 - 1.32 mmol/L [facility] staff design engineer [place] [id number] Test performed by Chemistry [facility] 05/09/2008 17:2 0 EST 05/09/2008 17:24 EST Jose Alejandro Castro MD CHEMISTRY & BLOOD GA S ORDERABLES Performing Organization Address [place]/[facility] Co de Phone Number [facility] [address] [place] [address] * (ABNORMAL) BLOOD GAS, CG4 ISTAT (05/09/2008 17:16 EST) pH, i-STAT 7.36 7.35 - 7.45 [facility] pCO2, i-STAT 33(L) 35 - 45 mmHg [facility] pO2, i-STAT 84(L) 85 - 100 mmHg [facility] TCO2, i-STAT 20 mEq/L FLEMARSHAE R [facility] O2 Saturation 96 % TRUE ER [facility] Lactate, i-STAT 0.6 mmol/L SH[facility]I ALMEIDA [facility] Base Deficit 6 [facility] Temperature 36.9 C [facility] FIO2 .25 [facility] Sample Type ARTERIAL [facility] staff design engineer ID [id number] Test Performed by Respiratory [facility] 05/09/2008 17:1 6 EST 05/09/2008 17:22 EST Jose Alejandro Castro MD CHEMISTRY & BLOOD GA S ORDERABLES Performing Organization Address [facility] de Phone Number [facility] [address] [place] [address] * (ABNORMAL) BLOOD GAS, G3 ISTAT (05/09/2008 17:09 EST) pH, i-STAT 7.39 7.35 - 7.45 [facility] pCO2, i-STAT 36 35 - 45 mmHg [facility] pO2, i-STAT 39(L) 85 - 100 mmHg [facility] TCO2, i-STAT 23 mEq/L [facility] O2 Saturation 74 % TRUE [facility]ENS [facility] Base Deficit 3 F[facility]SHAE R [facility] Temperature 36.9 C [facility] FIO2 .25 [facility] Sample Type VENOUS [facility] staff design engineer ID [id number] Test Performed by Respiratory [facility] 05/09/2008 17:0 9 EST 05/09/2008 17:22 EST Jose Alejandro Castro MD CHEMISTRY & BLOOD GA S ORDERABLES Performing Organization Address [facility] Co de Phone Number [facility] [address] [place] [address] * GLUCOSE, GLUCOMETER (05/09/2008 17:06 EST) Glucose, Fingerstick 85 70 - 100 mg/dl [facility] [employer] Grader ID [id number] Test Performed by Nursing Services [facility] 05/09/2008 17:0 6 EST 05/09/2008 23:14 EST Jose Alejandro Castro MD CHEMISTRY & BLOOD GA S ORDERABLES [facility] [address] [place] [address] * GLUCOSE, SERUM (05/09/2008 17:00 EST) Glucose, Serum 72 70 - 100 mg/dl [facility] 05/09/2008 17:0 0 EST 05/09/2008 17:15 EST Jose Alejandro Castro MD CHEMISTRY & BLOOD GA S ORDERABLES Performing Organization Address [facility] Co de Phone Number [facility] [address] [place] [address] * PHOSPHORUS (05/09/2008 17:00 EST) Phosphorus 2.9 2.7 - 4.7 mg/dl [facility] 05/09/2008 17:0 0 EST 05/09/2008 17:15 EST Jose Alejandro Castro MD CHEMISTRY & BLOOD GA S ORDERABLES [facility] [address] [place] [address] * MAGNESIUM (05/09/2008 17:00 EST) Magnesium 2.0 1.7 - 2.8 mg/dl [facility] 05/09/2008 17:0 0 EST 05/09/2008 17:15 EST Jose Alejandro Castro MD CHEMISTRY & BLOOD GA S ORDERABLES Performing Organization Address [place]/[facility] Co de Phone Number [facility] [address] [place] [address] * CREATININE (05/09/2008 17:00 EST) Pathologist [facility] Creatinine 0.80 0.6 - 1.2 mg/dl [facility] GFR, Calculated Age <18 ml/min/1.7 3m2 [facility] 05/09/2008 17:0 0 EST 05/09/2008 17:15 EST Jose Alejandro Castro MD CHEMISTRY & BLOOD GA S ORDERABLES Performing Organization Address [facility] de Phone Number [facility] [address] [place] [address] * BUN (05/09/2008 17:00 EST) BUN 16 8 - 21 mg/dl [facility] 05/09/2008 17:0 0 EST 05/09/2008 17:15 EST Jose Alejandro Castro MD CHEMISTRY & BLOOD GA S ORDERABLES Performing Organization Address [facility] de Phone Number [facility] [address] [place] [address] * (ABNORMAL) ELECTROLYTES (05/09/2008 17:00 EST) Pathologist [facility] Sodium 134(L) 136 - 145 mEq/L [facility] Potassium 6.1(HH) 3.5 - 5.0 mEq/L [facility] Comment:Sample retested, res ult confirmed Chloride 105 96 - 110 mEq/L [facility] CO2 23(L) 24 - 32 mEq/L [facility] 05/09/2008 17:0 0 EST 05/09/2008 17:15 EST Jose Alejandro Castro MD CHEMISTRY & BLOOD GA S ORDERABLES Performing Organization Address [facility] de Phone Number [facility] [address] [place] [address] * CALCIUM IONIZED (05/09/2008 17:00 EST) Ionized Calcium Note Sample sent to Lab. [facility] 05/09/2008 17:0 0 EST 05/09/2008 17:15 EST Jose Alejandro Castro MD CHEMISTRY & BLOOD GA S ORDERABLES Performing Organization Address [facility] Phone Number [facility] [address] [place] [address] * GLUCOSE, GLUCOMETER (05/09/2008 15:58 EST) Glucose, Fingerstick 85 70 - 100 mg/dl [facility] [employer] Grader ID [id number] Test Performed by Nursing Services [facility] 05/09/2008 15:5 8 EST 05/09/2008 23:14 EST Jose Alejandro Castro MD CHEMISTRY & BLOOD GA S ORDERABLES Performing Organization Address [facility] Phone Number [facility] [address] [place] [address] * GLUCOSE, GLUCOMETER (05/09/2008 15:04 EST) Glucose, Fingerstick 83 70 - 100 mg/dl [facility] [employer] Grader ID [id number] Test Performed by Nursing Services [facility] 05/09/2008 15:0 4 EST 05/09/2008 23:14 EST Jose Alejandro Castro MD CHEMISTRY & BLOOD GA S ORDERABLES Performing Organization Address [facility] Phone Number [facility] [address] [place] [address] * GLUCOSE, GLUCOMETER (05/09/2008 14:05 EST) Glucose, Fingerstick 88 70 - 100 mg/dl [facility] [employer] Grader ID [id number] Test Performed by Nursing Services [facility] 05/09/2008 14:0 5 EST 05/09/2008 23:14 EST Jose Alejandro Castro MD CHEMISTRY & BLOOD GA S ORDERABLES Performing Organization Address [facility]/ZIP Co de Phone Number [facility] [address] [place] [address] * (ABNORMAL) BLOOD GAS, G3 ISTAT (05/09/2008 13:26 EST) pH, i-STAT 7.36 7.35 - 7.45 [facility] pCO2, i-STAT 38 35 - 45 mmHg [facility] pO2, i-STAT 44(L) 85 - 100 mmHg [facility] TCO2, i-STAT 23 mEq/L [facility] O2 Saturation 78 % TRUE [facility] Base Deficit 3 [facility] Temperature 37.1 C [facility] FIO2 .30 [facility] Sample Type VENOUS ANISHA [facility] staff design engineer ID [id number] Test Performed by Respiratory [facility] 05/09/2008 13:2 6 EST 05/09/2008 13:30 EST Jose Alejandro Castor MD CHEMISTRY & BLOOD GA S ORDERABLES Performing Organization Address [facility]/ZIP Co de Phone Number [facility] [address] [place] [address] * (ABNORMAL) CALCIUM, IONIZED (05/09/2008 13:21 EST) Calcium, Ionized 1.11(L) 1.12 - 1.32 mmol/L ANISHA [facility] staff design [place] [id number] Test performed by Chemistry [facility] 05/09/2008 13:2 1 EST 05/09/2008 13:30 EST Jose Alejandro Castro MD CHEMISTRY & BLOOD GA S ORDERABLES Performing Organization Address City/[facility]/ZIP Co de Phone Number [facility] [address] [place] [address] * (ABNORMAL) BLOOD GAS, CG4 ISTAT (05/09/2008 13:12 EST) pH, i-STAT 7.39 7.35 - 7.45 [facility] pCO2, i-STAT 31(L) 35 - 45 mmHg [facility] pO2, i-STAT 128(H) 85 - 100 mmHg [facility] TCO2, i-STAT 19 mEq/L [facility] O2 Saturation 99 % TRUE [facility] Lactate, i-STAT 1.0 mmol/L SHERI [facility] Base Deficit 6 FRANKIE [facility] Temperature 37.1 C [facility] FIO2 .30 [facility] Sample Type ARTERIAL ANISHA [facility] staff design engineer ID [id number] Test Performed by Respiratory [facility] 05/09/2008 13:1 2 EST 05/09/2008 13:30 EST Jose Alejandro Castro MD CHEMISTRY & BLOOD GA S ORDERABLES Performing Organization Address [facility] Phone Number [facility] [address] [place] [address] * GLUCOSE, GLUCOMETER (05/09/2008 13:08 EST) Glucose, Fingerstick 94 70 - 100 mg/dl [facility] Milk And Cream Grader ID [id number] Test Performed by Nursing Services [facility] 05/09/2008 13:0 8 EST 05/09/2008 23:14 EST Jose Alejandro Castro MD CHEMISTRY & BLOOD GA S ORDERABLES Performing Organization Address [facility] Phone Number [facility] [address] [place] [address] * GLUCOSE, SERUM (05/09/2008 13:00 EST) Glucose, Serum 87 70 - 100 mg/dl [facility] 05/09/2008 13:0 0 EST 05/09/2008 13:13 EST Jose Alejandro Castro MD CHEMISTRY & BLOOD GA S ORDERABLES Performing Organization Address [facility] Phone Number [facility] [address] [place] [address] * PHOSPHORUS (05/09/2008 13:00 EST) Phosphorus 3.2 2.7 - 4.7 mg/dl [facility] 05/09/2008 13:0 0 EST 05/09/2008 13:13 EST Jose Alejandro Castro MD CHEMISTRY & BLOOD GA S ORDERABLES Performing Organization Address [facility] Co de Phone Number [facility] [address] [place] [address] * MAGNESIUM (05/09/2008 13:00 EST) Magnesium 1.9 1.7 - 2.8 mg/dl [facility] 05/09/2008 13:0 0 EST 05/09/2008 13:13 EST Jose Alejandro Castro MD CHEMISTRY & BLOOD GA S ORDERABLES Performing Organization Address [facility] de Phone Number [facility] [address] [place] [address] * (ABNORMAL) ELECTROLYTES (05/09/2008 13:00 EST) Sodium 133(L) 136 - 145 mEq/L [facility] Potassium 5.8(H) 3.5 - 5.0 mEq/L [facility] Chloride 106 96 - 110 mEq/L [facility] CO2 21(L) 24 - 32 mEq/L [facility] 05/09/2008 13:0 0 EST 05/09/2008 13:13 EST Jose Alejandro Castro MD CHEMISTRY & BLOOD GA S ORDERABLES Performing Organization Address [facility] de Phone Number [facility] [address] [place] [address] * CALCIUM IONIZED (05/09/2008 13:00 EST) Ionized Calcium Note Sample sent to Lab. [facility] 05/09/2008 13:0 0 EST 05/09/2008 13:13 EST Jose Alejandro Castro MD CHEMISTRY & BLOOD GA S ORDERABLES Performing Organization Address [facility] Co de Phone Number [facility] [address] [place] [address] * (ABNORMAL) GLUCOSE, GLUCOMETER (05/09/2008 11:57 EST) Glucose, Fingerstick 104(H) 70 - 100 mg/dl [facility] Milk [employer] Cream Grader ID [id number] Test Performed by Nursing Services [facility] 05/09/2008 11:5 7 EST 05/09/2008 23:14 EST Jose Alejandro Castro MD CHEMISTRY & BLOOD GA S ORDERABLES Performing Organization Address [facility] Co de Phone Number [facility] [address] [place] [address] * (ABNORMAL) GLUCOSE, GLUCOMETER (05/09/2008 11:07 EST) Glucose, Fingerstick 128(H) 70 - 100 mg/dl [facility] Milk [employer] Grader ID [id number] Test Performed by Nursing Services [facility] 05/09/2008 11:0 7 EST 05/09/2008 23:14 EST Jose Alejandro Castro MD CHEMISTRY & BLOOD GA S ORDERABLES Performing Organization Address [facility] Co de Phone Number [facility] [address] [place] [address] * (ABNORMAL) GLUCOSE, GLUCOMETER (05/09/2008 10:17 EST) Glucose, Fingerstick 123(H) 70 - 100 mg/dl [facility] [employer] Grader ID [id number] Test Performed by Nursing Services [facility] 05/09/2008 10:1 7 EST 05/09/2008 23:14 EST Jose Alejandro Castro MD CHEMISTRY & BLOOD GA S ORDERABLES Performing Organization Address [facility] Co de Phone Number [facility] [address] [place] [address] * SODIUM, URINE RANDOM (05/09/2008 10:17 EST) Sodium, Ur 99.0 mEq/L [facility] 05/09/2008 10:1 7 EST 05/09/2008 10:27 EST Jose Alejandro Castro MD URINALYSIS ORDERABLE S Performing Organization Address [facility] Co de Phone Number [facility] [address] [place] [address] * (ABNORMAL) GLUCOSE, GLUCOMETER (05/09/2008 9:10 EST) Glucose, Fingerstick 105(H) 70 - 100 mg/dl [facility] Milk [employer] Cream Grader ID [id number] Test Performed by Nursing Services [facility] 05/09/2008 9:10 EST 05/09/2008 23:14 EST Jose Alejandro Castro MD CHEMISTRY & BLOOD GA S ORDERABLES Performing Organization Address [facility] Co de Phone Number [facility] [address] [place] [address] * (ABNORMAL) CALCIUM, IONIZED (05/09/2008 8:24 EST) Calcium, Ionized 1.07(L) 1.12 - 1.32 mmol/L ANISHA [facility] staff design engineer [place] [id number] Test performed by Chemistry [facility] 05/09/2008 8:24 EST 05/09/2008 8:27 EST Jose Alejandro Castro MD CHEMISTRY & BLOOD GA S ORDERABLES Performing Organization Address [facility] Co de Phone Number [facility] [address] [place] [address] * (ABNORMAL) BLOOD GAS, G3 ISTAT (05/09/2008 8:18 EST) pH, i-STAT 7.36 7.35 - 7.45 [facility] pCO2, i-STAT 37 35 - 45 mmHg [facility] pO2, i-STAT 40(L) 85 - 100 mmHg [facility] TCO2, i-STAT 22 mEq/L [facility] O2 Saturation 73 % TRUE [facility] Base Deficit 4 FRANKIE [facility] Temperature 36.9 C [facility] FIO2 .40 [facility] Sample Type VENOUS ANISHA [facility] staff design engineer ID [id number] Test Performed by Respiratory [facility] 05/09/2008 8:18 EST 05/09/2008 8:25 EST Jose Alejandro Castro MD CHEMISTRY & BLOOD GA S ORDERABLES Performing Organization Address [facility] Phone Number [facility] [address] [place] [address] * (ABNORMAL) BLOOD GAS, CG4 ISTAT (05/09/2008 8:08 EST) pH, i-STAT 7.38 7.35 - 7.45 [facility] pCO2, i-STAT 29(L) 35 - 45 mmHg [facility] pO2, i-STAT 138(H) 85 - 100 mmHg [facility] TCO2, i-STAT 18 mEq/L FRANK[facility] O2 Saturation 99 % TRUE [facility] Lactate, i-STAT 1.2 mmol/L SHERI [facility] Base Deficit 7 FRANKIE [facility] Temperature 36.9 C [facility] FIO2 .40 AN[facility] Sample Type ARTERIAL ANISHA [facility] staff design engineer ID [id number] Test Performed by Respiratory [facility] 05/09/2008 8:08 EST 05/09/2008 8:25 EST Jose Alejandro Castro MD CHEMISTRY & BLOOD GA S ORDERABLES Performing Organization Address [facility] Phone Number [facility] [address] [place] [address] * (ABNORMAL) GLUCOSE, GLUCOMETER (05/09/2008 8:05 EST) Glucose, Fingerstick 109(H) 70 - 100 mg/dl [facility] [employer] Grader ID [id number] Test Performed by Nursing Services [facility] 05/09/2008 8:05 EST 05/09/2008 23:14 EST Jose Alejandro Castro MD CHEMISTRY & BLOOD GA S ORDERABLES Performing Organization Address [facility] de Phone Number [facility] [address] [place] [address] * (ABNORMAL) GLUCOSE, SERUM (05/09/2008 8:00 EST) Pathologist [facility] Glucose, Serum 103(H) 70 - 100 mg/dl [facility] Comment:Heparinized plasma. 05/09/2008 8:00 EST 05/09/2008 8:19 EST Jose Alejandro Castro MD CHEMISTRY & BLOOD GA S ORDERABLES Performing Organization Address [facility] de Phone Number [facility] [address] [place] [address] * PHOSPHORUS (05/09/2008 8:00 EST) [facility] Phosphorus 3.2 2.7 - 4.7 mg/dl [facility] Comment:Heparinized plasma. 05/09/2008 8:00 EST 05/09/2008 8:19 EST Jose Alejandro Castro MD CHEMISTRY & BLOOD GA S ORDERABLES Performing Organization Address [facility] Phone Number [facility] [address] [place] [address] * MAGNESIUM (05/09/2008 8:00 EST) [facility] Magnesium 1.7 1.7 - 2.8 mg/dl [facility] Comment:Heparinized plasma. 05/09/2008 8:00 EST 05/09/2008 8:19 EST Jose Alejandro Castro MD CHEMISTRY & BLOOD GA S ORDERABLES Performing Organization Address [facility] Phone Number [facility] [address] [place] [address] * (ABNORMAL) ELECTROLYTES (05/09/2008 8:00 EST) Pathologist [facility] Sodium 133(L) 136 - 145 mEq/L [facility] Comment:Heparinized plasma. Potassium 5.6(H) 3.5 - 5.0 mEq/L [facility] Comment:Heparinized plasma. Chloride 106 96 - 110 mEq/L [facility] Comment:Heparinized plasma. CO2 21(L) 24 - 32 mEq/L [facility] Comment:Heparinized plasma. 05/09/2008 8:00 EST 05/09/2008 8:19 EST Jose Alejandro Castro MD CHEMISTRY & BLOOD GA S ORDERABLES Performing Organization Address [facility] de Phone Number [facility] [address] [place] [address] * CALCIUM IONIZED (05/09/2008 8:00 EST) Ionized Calcium Note Sample sent to Lab. [facility] 05/09/2008 8:00 EST 05/09/2008 8:19 EST Jose Alejandro Castro MD CHEMISTRY & BLOOD GA S ORDERABLES Performing Organization Address [facility] de Phone Number [facility] [address] [place] [address] * PORTABLE CHEST 1 VIEW (05/09/2008 7:15 EST) Anatomical Region Laterality Modality Other 05/09/2008 7:15 EST Narrative 11/21/2008 8:55 EDT 17 YEAR OLD MALE WITH PNA, INTUBATED. CHECK LUNG DUBOSE, CHECK ETT PLACEMENT. Portable Chest One View May 09, 2008 7:15:00 AM Clinical History: 17 year old with pneumonia, intubated. Check lung dubose, check ETT placement. Findings: 30 degree upright, portable view of chest obtained and compared to May 08 at 1542 hours. Endotracheal tube tip midtrachea, transesophageal catheter tip medial right upper quadrant abdomen, right-sided central venous catheter tip deep in right atrium. Lung volumes lower than seen previously. Cardiomediastinal silhouette is mildly enlarged and has increased in size from several prior examinations. Parahilar densities on the right are prominent and show no improvement when compared to prior examination. Increased radiodensity persists in the retrocardiac area on the left. Bowel gas pattern upper abdomen is unremarkable. Impression: Parahilar parenchymal opacities, particularly on the right, highly suspicious for pneumonia, no improvement seen. Procedure Note Carmel Jerez MD - 11/21/2008 17 YEAR OLD MALE WITH PNA, INTUBATED. CHECK LUNG DUBOSE, CHECK ETT PLACEMENT. Portable Chest One View May 09, 2008 7:15:00 AM Clinical History: 17 year old with pneumonia, intubated. Check lung dubose, check ETT placement. Findings: 30 degree upright, portable view of chest obtained and compared to May 08 at 1542 hours. Endotracheal tube tip midtrachea, transesophageal catheter tip medial right upper quadrant abdomen, right-sided central venous catheter tip deep in right atrium. Lung volumes lower than seen previously. Cardiomediastinal silhouette is mildly enlarged and has increased in size from several prior examinations. Parahilar densities on the right are prominent and show no improvement when compared to prior examination. Increased radiodensity persists in the retrocardiac area on the left. Bowel gas pattern upper abdomen is unremarkable. Impression: Parahilar parenchymal opacities, particularly on the right, highly suspicious for pneumonia, no improvement seen. Jessika Rivera MD IMG DIAGNOSTIC IMAGI NG ORDERABLES * (ABNORMAL) GLUCOSE, GLUCOMETER (05/09/2008 7:00 EST) Glucose, Fingerstick 62(L) 70 - 100 mg/dl [facility] Milk And Cream Grader ID [id number] Test Performed by Nursing Services [facility] 05/09/2008 7:00 EST 05/09/2008 23:14 EST Jose Alejandro Castro MD CHEMISTRY & BLOOD GA S ORDERABLES Performing Organization Address City/State/[facility] Co de Phone Number [facility] [address] [place] [address] * GLUCOSE, GLUCOMETER (05/09/2008 6:03 EST) Glucose, Fingerstick 78 70 - 100 mg/dl [facility] Milk And Cream Grader ID [id number] Test Performed by Nursing Services [facility] 05/09/2008 6:03 EST 05/09/2008 23:14 EST Jose Alejandro Castro MD CHEMISTRY & BLOOD GA S ORDERABLES Performing Organization Address [facility] Co de Phone Number [facility] [address] [place] [address] * TROPONIN I (05/09/2008 5:20 EST) [facility] Troponin I pre 2012 0.73 ng/ml [facility] Comment: Reference Range: Normal: ??Less than 0.05 Indeterminate: ??0.05-0.80 Positive: ??Greater than 0.80 05/09/2008 5:20 EST 05/09/2008 5:23 EST Jose Alejandro Castro MD CHEMISTRY & BLOOD GA S ORDERABLES Performing Organization Address [facility] de Phone Number [facility] [address] [place] [address] * (ABNORMAL) CK MB WITH TOTAL CK (05/09/2008 5:20 EST) [facility] CK 6,434 U/L [facility] MB 125.6(H) 0 - 5.0 ng/ml [facility] CK-MB Index 2.0 0 - 2.5 [facility] 05/09/2008 5:20 EST 05/09/2008 5:23 EST Jose Alejandro Castro MD CHEMISTRY & BLOOD GA S ORDERABLES Performing Organization Address [facility] de Phone Number [facility] [address] [place] [address] * (ABNORMAL) GLUCOSE, GLUCOMETER (05/09/2008 5:00 EST) [facility] Glucose, Fingerstick 119(H) 70 - 100 mg/dl [facility] Milk And Cream Grader ID [id number] Test Performed by Nursing Services [facility] 05/09/2008 5:00 EST 05/09/2008 23:14 EST Jose Alejandro Castro MD CHEMISTRY & BLOOD GA S ORDERABLES Performing Organization Address [facility] Co de Phone Number [facility] [address] [place] [address] * (ABNORMAL) CALCIUM, IONIZED (05/09/2008 4:27 EST) Calcium, Ionized 1.05(L) 1.12 - 1.32 mmol/L ANISHA [facility] staff design engineer [place] [id number] Test performed by Chemistry [facility] 05/09/2008 4:27 EST 05/09/2008 4:31 EST Jose Alejandro Castro MD CHEMISTRY & BLOOD GA S ORDERABLES Performing Organization Address [facility] de Phone Number [facility] [address] [place] [address] * (ABNORMAL) BLOOD GAS, G3 ISTAT (05/09/2008 4:19 EST) pH, i-STAT 7.33(L) 7.35 - 7.45 [facility] pCO2, i-STAT 35 35 - 45 mmHg [facility] pO2, i-STAT 52(L) 85 - 100 mmHg [facility] TCO2, i-STAT 20 mEq/L [facility] O2 Saturation 85 % FLEMARSHA STEVENS [facility] Base Deficit 7 [facility] Temperature 36.4 C [facility] FIO2 .40 [facility] Sample Type VENOUS ANISHA [facility] staff design engineer ID [id number] Test Performed by Respiratory [facility] 05/09/2008 4:19 EST 05/09/2008 4:22 EST Jose Alejandro Castro MD CHEMISTRY & BLOOD GA S ORDERABLES Performing Organization Address [facility] de Phone Number [facility] [address] [place] [address] * (ABNORMAL) BLOOD GAS, CG4 ISTAT (05/09/2008 4:13 EST) pH, i-STAT 7.39 7.35 - 7.45 [facility] pCO2, i-STAT 30(L) 35 - 45 mmHg [facility] pO2, i-STAT 174(H) 85 - 100 mmHg [facility] TCO2, i-STAT 19 mEq/L [facility] O2 Saturation 100 % FLETCH HILDA [facility] Lactate, i-STAT 1.6 mmol/L SHERI [facility] Base Deficit 6 [facility] Temperature 36.4 C [facility] FIO2 .40 [facility] Sample Type ARTERIAL ANISHA [facility] staff design engineer ID [id number] Test Performed by Respiratory [facility] 05/09/2008 4:13 EST 05/09/2008 4:22 EST Jose Alejandro Castro MD CHEMISTRY & BLOOD GA S ORDERABLES Performing Organization Address [facility] Co de Phone Number [facility] [address] [place] [address] * (ABNORMAL) GLUCOSE, GLUCOMETER (05/09/2008 4:10 EST) Glucose, Fingerstick 112(H) 70 - 100 mg/dl [facility] [employer] Grader ID [id number] Test Performed by Nursing Services [facility] 05/09/2008 4:10 EST 05/09/2008 23:14 EST Jose Alejandro Castro MD CHEMISTRY & BLOOD GA S ORDERABLES Performing Organization Address [facility] de Phone Number [facility] [address] [place] [address] * (ABNORMAL) AST (05/09/2008 4:10 EST) AST 273(H) 15 - 46 U/L [facility] Comment:Sample retested, res ult confirmed 05/09/2008 4:10 EST 05/09/2008 4:17 EST Jose Alejandro Castro MD CHEMISTRY & BLOOD GA S ORDERABLES Performing Organization Address [facility] Co de Phone Number [facility] [address] [place] [address] * (ABNORMAL) PTT (05/09/2008 4:10 EST) PTT 42(H) 20 - 35 secs [facility] Comment:Therapeutic Heparin range: 60-100 seconds 05/09/2008 4:10 EST 05/09/2008 4:17 EST Jose Alejandro Castro MD HEMATOLOGY & PF4 ORD ERABLES Performing Organization Address [facility] de Phone Number [facility] [address] [place] [address] * (ABNORMAL) PROTIME (05/09/2008 4:10 EST) Pro Time 23.1(H) 12.0 - 15.0 secs [facility] I.N.R. 2.0(H) 0.9 - 1.1 Ratio [facility] Comment: Moderate Intensity Coumadin INR = 2.0-3.0 Adjustments in anticoagulant therapy dose should be based upon the INR and NOT the Pro Time. 05/09/2008 4:10 EST 05/09/2008 4:17 EST Jose Alejandro Castro MD HEMATOLOGY & PF4 ORD ERABLES Performing Organization Address [facility] Phone Number [facility] [address] [place] [address] * (ABNORMAL) GLUCOSE, SERUM (05/09/2008 4:10 EST) Glucose, Serum 101(H) 70 - 100 mg/dl [facility] 05/09/2008 4:10 EST 05/09/2008 4:17 EST Jose Alejandro Castro MD CHEMISTRY & BLOOD GA S ORDERABLES Performing Organization Address [facility] de Phone Number [facility] [address] [place] [address] * PHOSPHORUS (05/09/2008 4:10 EST) Phosphorus 3.1 2.7 - 4.7 mg/dl [facility] 05/09/2008 4:10 EST 05/09/2008 4:17 EST Jose Alejandro Castro MD CHEMISTRY & BLOOD GA S ORDERABLES Performing Organization Address [facility] de Phone Number [facility] [address] [place] [address] * MAGNESIUM (05/09/2008 4:10 EST) Magnesium 1.8 1.7 - 2.8 mg/dl [facility] 05/09/2008 4:10 EST 05/09/2008 4:17 EST Jose Alejandro Castro MD CHEMISTRY & BLOOD GA S ORDERABLES Performing Organization Address [facility] de Phone Number [facility] [address] [place] [address] * GGT (05/09/2008 4:10 EST) GGT 34 10 - 35 U/L [facility] 05/09/2008 4:10 EST 05/09/2008 4:17 EST Jose Alejandro Castro MD CHEMISTRY & BLOOD GA S ORDERABLES Performing Organization Address [facility] Phone Number [facility] [address] [place] [address] * CREATININE (05/09/2008 4:10 EST) Creatinine 0.80 0.6 - 1.2 mg/dl [facility] GFR, Calculated Age <18 ml/min/1.7 3m2 [facility] 05/09/2008 4:10 EST 05/09/2008 4:17 EST Jose Alejandro Castro MD CHEMISTRY & BLOOD GA S ORDERABLES Performing Organization Address [facility] Phone Number [facility] [address] [place] [address] * BUN (05/09/2008 4:10 EST) BUN 10 8 - 21 mg/dl [facility] 05/09/2008 4:10 EST 05/09/2008 4:17 EST Jose Alejandro Castro MD CHEMISTRY & BLOOD GA S ORDERABLES Performing Organization Address City/[facility] Co de Phone Number [facility] [address] [place] [address] * TOTAL & DIRECT BILIRUBIN (05/09/2008 4:10 EST) Conjugated Bilirubin 0.0 0.0 - 0.3 mg/dl [facility] Unconjugated Bilirubin 0.6 0.1 - 1.1 mg/dl [facility] Bilirubin, Total <0.5 0.0 - 1.4 mg/dl [facility] 05/09/2008 4:10 EST 05/09/2008 4:17 EST Jose Alejandro Castro MD CHEMISTRY & BLOOD GA S ORDERABLES Performing Organization Address City/[facility] Co de Phone Number [facility] [address] [place] [address] * (ABNORMAL) ALT (05/09/2008 4:10 EST) ALT 89(H) 0 - 45 U/L [facility] 05/09/2008 4:10 EST 05/09/2008 4:17 EST Jose Alejandro Castro MD CHEMISTRY & BLOOD GA S ORDERABLES Performing Organization Address City/[facility] Co de Phone Number [facility] [address] [place] [address] * (ABNORMAL) ALBUMIN (05/09/2008 4:10 EST) Albumin 2.7(L) 3.0 - 5.5 g/dl [facility] 05/09/2008 4:10 EST 05/09/2008 4:17 EST Jose Alejandro Castro MD CHEMISTRY & BLOOD GA S ORDERABLES Performing Organization Address [facility] Co de Phone Number [facility] [address] [place] [address] * (ABNORMAL) ELECTROLYTES (05/09/2008 4:10 EST) Sodium 135(L) 136 - 145 mEq/L [facility] Potassium 5.3(H) 3.5 - 5.0 mEq/L [facility] Chloride 107 96 - 110 mEq/L [facility] CO2 22(L) 24 - 32 mEq/L [facility] 05/09/2008 4:10 EST 05/09/2008 4:17 EST Jose Alejandro Castro MD CHEMISTRY & BLOOD GA S ORDERABLES Performing Organization Address [facility] Co de Phone Number [facility] [address] [place] [address] * TROPONIN I (05/09/2008 4:10 EST) Troponin I pre 2012 Sample quantity insufficient for testing. ng/ml [facility] 05/09/2008 4:10 EST 05/09/2008 4:17 EST Jose Alejandro Castro MD CHEMISTRY & BLOOD GA S ORDERABLES Performing Organization Address [facility] Phone Number [facility] [address] [place] [address] * CK MB WITH TOTAL CK (05/09/2008 4:10 EST) Pathologist [facility] CK Sample quantity insufficient for testing. U/L [facility] MB Sample quantity insufficient for testing. 0 - 5.0 ng/ml [facility] CK-MB Index Sample quantity insufficient for testing. 0 - 2.5 [facility] 05/09/2008 4:10 EST 05/09/2008 4:17 EST Jose Alejandro Castro MD CHEMISTRY & BLOOD GA S ORDERABLES Performing Organization Address [facility] Co de Phone Number [facility] [address] [place] [address] * (ABNORMAL) HEMAGRAM AND DIFFERENTIAL (05/09/2008 4:10 EST) WBC 41.47(H) 4.6 - 11.2 K/cmm [facility] RBC 3.88(L) 4.50 - 5.30 M/cmm [facility] Hemoglobin 10.3(L) 13.0 - 16.0 gm/dl [facility] HCT 30.0(L) 37.0 - 49.0 % [facility] MCV 77(L) 78 - 98 fl [facility] MCH 26.5 pg [facility] MCHC 34.2 gm/dl [facility] PLT 179 156 - 312 K/cmm [facility] RDW-CV 17.8 % [facility] Neutrophils 80.0 % [facility] % Bands 9.0 % [facility] Lymphocytes 3.0 % [facility] Monocytes 6.0 % [facility] % Metamyelocytes 2.0 % [facility] ABS Neutrophils 33.18 K/cmm [facility] ABS Bands 3.73 K/cmm [facility] ABS Lymphs 1.24 K/cmm [facility] ABS Monocytes 2.49 K/cmm [facility] ABS Metamyelocytes 0.83 K/cmm [facility] RBC Morphology 1+ Anisocytosis 1+ Poikilocytosis 1+ Target cells [facility] Type of Diff: Manual [facility] 05/09/2008 4:10 EST 05/09/2008 4:17 EST Jose Alejandro Castro MD PACKAGES & DNA PROBE ORDERABLES Performing Organization Address [facility] de Phone Number [facility] [address] [place] [address] * CALCIUM IONIZED (05/09/2008 4:10 EST) Ionized Calcium Note Sample sent to Lab. [facility] 05/09/2008 4:10 EST 05/09/2008 4:17 EST Jose Alejandro Castro MD CHEMISTRY & BLOOD GA S ORDERABLES Performing Organization Address [facility] Co de Phone Number [facility] [address] [place] [address] * (ABNORMAL) GLUCOSE, GLUCOMETER (05/09/2008 3:03 EST) Glucose, Fingerstick 219(H) 70 - 100 mg/dl [facility] [employer] Grader [place] [id number] Test Performed by Nursing Services [facility] 05/09/2008 3:03 EST 05/09/2008 23:14 EST Jose Alejandro Castro MD CHEMISTRY & BLOOD GA S ORDERABLES Performing Organization Address [facility] Phone Number [facility] [address] [place] [address] * (ABNORMAL) GLUCOSE, GLUCOMETER (05/09/2008 2:04 EST) Glucose, Fingerstick 259(H) 70 - 100 mg/dl [facility] [employer] ID [id number] Test Performed by Nursing Services [facility] 05/09/2008 2:04 EST 05/09/2008 23:14 EST Jose Alejandro Castro MD CHEMISTRY & BLOOD GA S ORDERABLES Performing Organization Address [facility] Phone Number [facility] [address] [place] [address] * (ABNORMAL) GLUCOSE, GLUCOMETER (05/09/2008 1:11 EST) Glucose, Fingerstick 258(H) 70 - 100 mg/dl [facility] [employer] Grader ID [id number] Test Performed by Nursing Services [facility] 05/09/2008 1:11 EST 05/09/2008 23:14 EST Jose Alejandro Castro MD CHEMISTRY & BLOOD GA S ORDERABLES Performing Organization Address [facility] Phone Number [facility] [address] [place] [address] * (ABNORMAL) BLOOD GAS, G3 ISTAT (05/09/2008 0:29 EST) pH, i-STAT 7.27(L) 7.35 - 7.45 [facility] pCO2, i-STAT 35 35 - 45 mmHg [facility] pO2, i-STAT 55(L) 85 - 100 mmHg [facility] TCO2, i-STAT 17 mEq/L [facility] O2 Saturation 85 % [facility] Base Deficit 10 [facility] Temperature 36.8 C [facility] FIO2 .40 [facility] Sample Type ARTERIAL [facility]IS[facility] staff design engineer ID [id number] Test Performed by Respiratory [facility] 05/09/2008 0:29 EST 05/09/2008 4:22 EST Jose Alejandro Castro MD CHEMISTRY & BLOOD GA S ORDERABLES Performing Organization Address [facility] Phone Number [facility] [address] [place] [address] * (ABNORMAL) CALCIUM, IONIZED (05/09/2008 0:28 EST) Calcium, Ionized 1.08(L) 1.12 - 1.32 mmol/L [facility] staff design engineer [place] [id number] Test performed by Chemistry [facility] 05/09/2008 0:28 EST 05/09/2008 0:31 EST Jose Alejandro Castro MD CHEMISTRY & BLOOD GA S ORDERABLES Performing Organization Address [facility] Phone Number [facility] [address] [place] [address] * (ABNORMAL) BLOOD GAS, CG4 ISTAT (05/09/2008 0:25 EST) pH, i-STAT 7.27(L) 7.35 - 7.45 [facility] pCO2, i-STAT 31(L) 35 - 45 mmHg [facility] pO2, i-STAT 138(H) 85 - 100 mmHg [facility] TCO2, i-STAT 15 mEq/L [facility] O2 Saturation 99 % [facility] Lactate, i-STAT 4.0 mmol/L [facility] Base Deficit 12 [facility] Temperature 36.8 C [facility] FIO2 .40 [facility] Sample Type ARTERIAL [facility] staff design engineer ID [id number] Test Performed by Respiratory [facility] 05/09/2008 0:25 EST 05/09/2008 4:22 EST Jose Alejandro Castro MD CHEMISTRY & BLOOD GA S ORDERABLES Performing Organization Address [facility] Co de Phone Number [facility] [address] [place] [address] * (ABNORMAL) GLUCOSE, GLUCOMETER (05/09/2008 0:17 EST) Glucose, Fingerstick 270(H) 70 - 100 mg/dl [facility] [employer] ID [id number] Test Performed by Nursing Services [facility] 05/09/2008 0:17 EST 05/09/2008 23:14 EST Jose Alejandro Castro MD CHEMISTRY & BLOOD GA S ORDERABLES Performing Organization Address [facility] de Phone Number [facility] [address] [place] [address] * (ABNORMAL) GLUCOSE, SERUM (05/09/2008 0:10 EST) Glucose, Serum 243(H) 70 - 100 mg/dl [facility] 05/09/2008 0:10 EST 05/09/2008 0:22 EST Jose Alejandro Castro MD CHEMISTRY & BLOOD GA S ORDERABLES Performing Organization Address [facility] Phone Number [facility] [address] [place] [address] * PHOSPHORUS (05/09/2008 0:10 EST) Phosphorus 3.0 2.7 - 4.7 mg/dl [facility] 05/09/2008 0:10 EST 05/09/2008 0:22 EST Jose Alejandro Castro MD CHEMISTRY & BLOOD GA S ORDERABLES Performing Organization Address [facility] Co hi Phone Number [facility] [address] [place] [address] * (ABNORMAL) MAGNESIUM (05/09/2008 0:10 EST) Magnesium 1.5(L) 1.7 - 2.8 mg/dl [facility] 05/09/2008 0:10 EST 05/09/2008 0:22 EST Jose Alejandro Castro MD CHEMISTRY & BLOOD GA S ORDERABLES Performing Organization Address [facility] Phone Number [facility] [address] [place] [address] * (ABNORMAL) ELECTROLYTES (05/09/2008 0:10 EST) Sodium 138 136 - 145 mEq/L [facility] Potassium 5.6(H) 3.5 - 5.0 mEq/L [facility] Chloride 109 96 - 110 mEq/L [facility] CO2 19(L) 24 - 32 mEq/L [facility] 05/09/2008 0:10 EST 05/09/2008 0:22 EST Jose Alejandro Castro MD CHEMISTRY & BLOOD GA S ORDERABLES Performing Organization Address [facility] Phone Number [facility] [address] [place] [address] * CALCIUM IONIZED (05/09/2008 0:10 EST) Ionized Calcium Note Sample sent to Lab. [facility] 05/09/2008 0:10 EST 05/09/2008 0:22 EST Jose Alejandro Castro MD CHEMISTRY & BLOOD GA S ORDERABLES Performing Organization Address [facility] Phone Number [facility] [address] [place] [address] * (ABNORMAL) GLUCOSE, GLUCOMETER (05/08/2008 22:59 EST) Glucose, Fingerstick 333(H) 70 - 100 mg/dl [facility] [employer] [place] [id number] Test Performed by Nursing Services [facility] 05/08/2008 22:5 9 EST 05/08/2008 23:11 EST Jose Alejandro Castro MD CHEMISTRY & BLOOD GA S ORDERABLES [facility] [address] [place] [address] * (ABNORMAL) GLUCOSE, GLUCOMETER (05/08/2008 21:07 EST) Glucose, Fingerstick 345(H) 70 - 100 mg/dl [facility] [employer] ID [id number] Test Performed by Nursing Services [facility] 05/08/2008 21:0 7 EST 05/08/2008 21:20 EST Jose Alejandro Castro MD CHEMISTRY & BLOOD GA S ORDERABLES Performing Organization Address [facility] Co de Phone Number [facility] [address] [place] [address] * CALCIUM, IONIZED (05/08/2008 20:17 EST) Calcium, Ionized 1.23 1.12 - 1.32 mmol/L [facility] staff design engineer [place] [id number] Test performed by Chemistry [facility] 05/08/2008 20:1 7 EST 05/08/2008 20:19 EST Jose Alejandro Castro MD CHEMISTRY & BLOOD GA S ORDERABLES Performing Organization Address [facility] Co de Phone Number [facility] [address] [place] [address] * (ABNORMAL) BLOOD GAS, G3 ISTAT (05/08/2008 20:08 EST) pH, i-STAT 7.25(L) 7.35 - 7.45 [facility] pCO2, i-STAT 33(L) 35 - 45 mmHg [facility] pO2, i-STAT 47(L) 85 - 100 mmHg [facility] TCO2, i-STAT 16 mEq/L [facility] O2 Saturation 78 % [facility] Base Deficit 12 [facility] Temperature 36.4 C [facility] FIO2 .40 [facility] Sample Type VENOUS [facility] staff design engineer ID [id number] Test Performed by Respiratory [facility] 05/08/2008 20:0 8 EST 05/08/2008 20:15 EST Jose Alejandro Castro MD CHEMISTRY & BLOOD GA S ORDERABLES Performing Organization Address City/[facility] Co de Phone Number [facility] [address] [place] [address] * (ABNORMAL) GLUCOSE, GLUCOMETER (05/08/2008 20:06 EST) Glucose, Fingerstick 363(H) 70 - 100 mg/dl [facility] [employer] ID [id number] Test Performed by Nursing Services [facility] 05/08/2008 20:0 6 EST 05/08/2008 21:19 EST Jose Alejandro Castro MD CHEMISTRY & BLOOD GA S ORDERABLES Performing Organization Address [facility] de Phone Number [facility] [address] [place] [address] * VANCOMYCIN, RANDOM (05/08/2008 20:05 EST) Vancomycin Random 10.7 ug/ml [facility] Comment: Reference Range: Trough: 5.0-20.0 Peak: ??30.0-40.0 05/08/2008 20:0 5 EST 05/08/2008 20:11 EST Jose Alejandro Castro MD CHEMISTRY & BLOOD GA S ORDERABLES Performing Organization Address [facility] de Phone Number [facility] [address] [place] [address] * (ABNORMAL) GLUCOSE, SERUM (05/08/2008 20:05 EST) Glucose, Serum 362(H) 70 - 100 mg/dl [facility] 05/08/2008 20:0 5 EST 05/08/2008 20:11 EST Jose Alejandro Castro MD CHEMISTRY & BLOOD GA S ORDERABLES Performing Organization Address [facility] Co de Phone Number [facility] [address] [place] [address] * PHOSPHORUS (05/08/2008 20:05 EST) Phosphorus 2.8 2.7 - 4.7 mg/dl [facility] 05/08/2008 20:0 5 EST 05/08/2008 20:11 EST Jose Alejandro Castro MD CHEMISTRY & BLOOD GA S ORDERABLES Performing Organization Address [facility] Co de Phone Number [facility] [address] [place] [address] * (ABNORMAL) MAGNESIUM (05/08/2008 20:05 EST) Magnesium 1.5(L) 1.7 - 2.8 mg/dl [facility] 05/08/2008 20:0 5 EST 05/08/2008 20:11 EST Jose Alejandro Castro MD CHEMISTRY & BLOOD GA S ORDERABLES Performing Organization Address [facility] de Phone Number [facility] [address] [place] [address] * CREATININE (05/08/2008 20:05 EST) Creatinine 1.10 0.6 - 1.2 mg/dl [facility] GFR, Calculated Age <18 ml/min/1.7 3m2 [facility] 05/08/2008 20:0 5 EST 05/08/2008 20:11 EST Jose Alejandro Castro MD CHEMISTRY & BLOOD GA S ORDERABLES Performing Organization Address [facility] de Phone Number [facility] [address] [place] [address] * BUN (05/08/2008 20:05 EST) BUN 14 8 - 21 mg/dl [facility] 05/08/2008 20:0 5 EST 05/08/2008 20:11 EST Jose Alejandro Castro MD CHEMISTRY & BLOOD GA S ORDERABLES Performing Organization Address [facility] Co de Phone Number [facility] [address] [place] [address] * (ABNORMAL) ELECTROLYTES (05/08/2008 20:05 EST) Sodium 142 136 - 145 mEq/L [facility] Potassium 4.7 3.5 - 5.0 mEq/L [facility] Chloride 111(H) 96 - 110 mEq/L [facility] CO2 17(L) 24 - 32 mEq/L [facility] 05/08/2008 20:0 5 EST 05/08/2008 20:11 EST Jose Alejandro Castro MD CHEMISTRY & BLOOD GA S ORDERABLES Performing Organization Address City/[facility]/ZIP Co de Phone Number [facility] [address] [place] [address] * (ABNORMAL) HEMAGRAM (05/08/2008 20:05 EST) WBC 51.68(HH) 4.6 - 11.2 K/cmm [facility] RBC 4.32(L) 4.50 - 5.30 M/cmm [facility] Hemoglobin 11.5(L) 13.0 - 16.0 gm/dl [facility] Comment:HGB may be effected by elevated WBC HCT 33.8(L) 37.0 - 49.0 % [facility] MCV 78 78 - 98 fl [facility] MCH 26.5 pg [facility] MCHC 34.0 gm/dl [facility] PLT 204 156 - 312 K/cmm [facility] RDW-CV 17.2 % [facility] 05/08/2008 20:0 5 EST 05/08/2008 20:11 EST Jose Alejandro Castro MD HEMATOLOGY & PF4 ORD ERABLES [facility] [address] [place] [address] * CALCIUM IONIZED (05/08/2008 20:05 EST) Ionized Calcium Note Sample sent to Lab. [facility] 05/08/2008 20:0 5 EST 05/08/2008 20:11 EST Jose Alejandro Castro MD CHEMISTRY & BLOOD GA S ORDERABLES Performing Organization Address [facility] Co de Phone Number [facility] [address] [place] [address] * (ABNORMAL) BLOOD GAS, CG4 ISTAT (05/08/2008 20:02 EST) pH, i-STAT 7.27(L) 7.35 - 7.45 [facility] pCO2, i-STAT 25(L) 35 - 45 mmHg [facility] pO2, i-STAT 157(H) 85 - 100 mmHg [facility] TCO2, i-STAT 12 mEq/L [facility] O2 Saturation 99 % [facility] Lactate, i-STAT 5.5 mmol/L [facility] Base Deficit 14 [facility] Temperature 36.4 C [facility] FIO2 .40 [facility] Sample Type ARTERIAL [facility] staff design engineer ID [id number] Test Performed by Respiratory [facility] 05/08/2008 20:0 2 EST 05/08/2008 20:15 EST Jose Alejandro Castro MD CHEMISTRY & BLOOD GA S ORDERABLES Performing Organization Address [facility] de Phone Number [facility] [address] [place] [address] * MRSA MOLECULAR DETECTION (05/08/2008 20:00 EST) Specimen Description Nares Specimen submitted on a swab [facility] Result NEGATIVE for Methicillin Resistant Staphylococcus aureus DNA by PCR. [facility] Report Status Final 05/09/2008 [facility] 05/08/2008 20:0 0 EST 05/08/2008 20:44 EST Jose Alejandro Castro MD MICROBIOLOGY - GENER AL ORDERABLES Performing Organization Address [facility] Co de Phone Number [facility] [address] [place] [address] * POTASSIUM (05/08/2008 19:00 EST) Potassium 4.5 3.5 - 5.0 mEq/L [facility] 05/08/2008 19:0 0 EST 05/08/2008 19:03 EST Jose Alejandro Castro MD CHEMISTRY & BLOOD GA S ORDERABLES Performing Organization Address [facility] de Phone Number [facility] [address] [place] [address] * (ABNORMAL) GLUCOSE, GLUCOMETER (05/08/2008 18:13 EST) Glucose, Fingerstick 422(H) 70 - 100 mg/dl [facility] [employer] Grader ID [id number] Test Performed by Nursing Services [facility] 05/08/2008 18:1 3 EST 05/08/2008 21:19 EST Jose Alejandro Castro MD CHEMISTRY & BLOOD GA S ORDERABLES Performing Organization Address [facility] de Phone Number [facility] [address] [place] [address] * (ABNORMAL) CALCIUM, IONIZED (05/08/2008 16:31 EST) Calcium, Ionized 1.37(H) 1.12 - 1.32 mmol/L [facility] staff design engineer ID [id number] Test performed by Chemistry [facility] 05/08/2008 16:3 1 EST 05/08/2008 16:35 EST Jose Alejandro Castro MD CHEMISTRY & BLOOD GA S ORDERABLES Performing Organization Address [facility] Phone Number [facility] [address] [place] [address] * (ABNORMAL) GLUCOSE, SERUM (05/08/2008 16:27 EST) Glucose, Serum 456(H) 70 - 100 mg/dl [facility] 05/08/2008 16:2 7 EST 05/08/2008 16:27 EST Jose Alejandro Castro MD CHEMISTRY & BLOOD GA S ORDERABLES Performing Organization Address [facility] Co de Phone Number [facility] [address] [place] [address] * (ABNORMAL) PHOSPHORUS (05/08/2008 16:27 EST) Phosphorus 1.5(L) 2.7 - 4.7 mg/dl [facility] 05/08/2008 16:2 7 EST 05/08/2008 16:27 EST Jose Alejandro Castro MD CHEMISTRY & BLOOD GA S ORDERABLES Performing Organization Address [facility] Co de Phone Number [facility] [address] [place] [address] * MAGNESIUM (05/08/2008 16:27 EST) Magnesium 1.8 1.7 - 2.8 mg/dl [facility] 05/08/2008 16:2 7 EST 05/08/2008 16:27 EST Jose Alejandro Castro MD CHEMISTRY & BLOOD GA S ORDERABLES Performing Organization Address [facility] Co de Phone Number [facility] [address] [place] [address] * (ABNORMAL) CREATININE (05/08/2008 16:27 EST) Creatinine 1.40(H) 0.6 - 1.2 mg/dl [facility] Comment:Sample retested, res ult confirmed GFR, Calculated Age <18 ml/min/1.7 3m2 [facility] 05/08/2008 16:2 7 EST 05/08/2008 16:27 EST Jose Alejandro Castro MD CHEMISTRY & BLOOD GA S ORDERABLES Performing Organization Address [facility] Co de Phone Number [facility] [address] [place] [address] * BUN (05/08/2008 16:27 EST) BUN 16 8 - 21 mg/dl [facility] 05/08/2008 16:2 7 EST 05/08/2008 16:27 EST Jose Alejandro Castro MD CHEMISTRY & BLOOD GA S ORDERABLES Performing Organization Address [facility] de Phone Number [facility] [address] [place] [address] * (ABNORMAL) ELECTROLYTES (05/08/2008 16:27 EST) Sodium 142 136 - 145 mEq/L [facility] Potassium 3.0(L) 3.5 - 5.0 mEq/L [facility] Chloride 111(H) 96 - 110 mEq/L [facility] CO2 14(L) 24 - 32 mEq/L [facility] 05/08/2008 16:2 7 EST 05/08/2008 16:27 EST Jose Alejandro Castro MD CHEMISTRY & BLOOD GA S ORDERABLES Performing Organization Address [facility] Phone Number [facility] [address] [place] [address] * CALCIUM IONIZED (05/08/2008 16:27 EST) Ionized Calcium Note Sample sent to Lab. [facility] 05/08/2008 16:2 7 EST 05/08/2008 16:27 EST Jose Alejandro Castro MD CHEMISTRY & BLOOD GA S ORDERABLES Performing Organization Address [facility] de Phone Number [facility] [address] [place] [address] * (ABNORMAL) BLOOD GAS, G3 ISTAT (05/08/2008 16:22 EST) pH, i-STAT 7.16(L) 7.35 - 7.45 [facility] pCO2, i-STAT 38 35 - 45 mmHg [facility] pO2, i-STAT 54(L) 85 - 100 mmHg [facility] TCO2, i-STAT 15 mEq/L [facility] O2 Saturation 82 % [facility] Base Deficit 15 [facility] Temperature 35.6 C [facility] FIO2 .40 [facility] Sample Type VENOUS [facility]IS[facility] staff design engineer ID [id number] Test Performed by Respiratory [facility] 05/08/2008 16:2 2 EST 05/08/2008 16:30 EST Jose Alejandro Castro MD CHEMISTRY & BLOOD GA S ORDERABLES Performing Organization Address [facility] Phone Number [facility] [address] [place] [address] * (ABNORMAL) BLOOD GAS, CG4 ISTAT (05/08/2008 16:14 EST) pH, i-STAT 7.17(L) 7.35 - 7.45 [facility] pCO2, i-STAT 31(L) 35 - 45 mmHg [facility] pO2, i-STAT 119(H) 85 - 100 mmHg [facility] TCO2, i-STAT 13 mEq/L [facility] O2 Saturation 98 % [facility] Lactate, i-STAT 7.2 mmol/L [facility] Base Deficit 16 [facility] Temperature 35.6 C [facility] FIO2 .40 [facility] Sample Type ARTERIAL [facility] staff design engineer ID [id number] Test Performed by Respiratory [facility] 05/08/2008 16:1 4 EST 05/08/2008 16:30 EST Jose Alejandro Castro MD CHEMISTRY & BLOOD GA S ORDERABLES Performing Organization Address [facility] de Phone Number [facility] [address] [place] [address] * (ABNORMAL) GLUCOSE, GLUCOMETER (05/08/2008 16:11 EST) Glucose, Fingerstick 456(H) 70 - 100 mg/dl [facility] [employer] Grader ID [id number] Test Performed by Nursing Services [facility] 05/08/2008 16:1 1 EST 05/08/2008 21:19 EST Jose Alejandro Castro MD CHEMISTRY & BLOOD GA S ORDERABLES [facility] [address] [place] [address] * PORTABLE CHEST 1 VIEW (05/08/2008 14:48 EST) Anatomical Region Laterality Modality Other 05/08/2008 14:4 8 EST Narrative 11/21/2008 8:54 EDT pt 17 y/o male intubated, pna, s/p ij placement, check fj position check lung dubose check ett PORTABLE CHEST 1 VIEW ??May 08, 2008 2:48:00 PM Signs and Symptoms: ??pt 17 y/o male intubated, pna, s/p ij placement, check ij position check lung dubose check ett Comparison: 05/08/2008 and 0093 hours Findings: Portable AP radiograph of the chest demonstrates an endotracheal tube 3.5 cm above the davon. Transesophageal catheter is seen with the tip at the pylorus. A right-sided internal jugular central venous catheter is present with the tip in the right atrium. Again seen are dense opacifications in the right mid and lower lung which could represent pneumonia. The retrocardiac opacity persists as well. No pneumothorax is seen on this semi upright view, however one is not entirely excluded. The cardiomediastinal silhouette is stable. I have personally reviewed the images and the above interpretation and agree with the findings. Procedure Note Nicely, MD Acosta / Carmel Jerez MD - 11/21/2008 pt 17 y/o male intubated, pna, s/p ij placement, check fj position check lung dubose check ett PORTABLE CHEST 1 VIEW May 08, 2008 2:48:00 PM Signs and Symptoms: pt 17 y/o male intubated, pna, s/p ij placement, check ij position check lung dubose check ett Comparison: 05/08/2008 and 0093 hours Findings: Portable AP radiograph of the chest demonstrates an endotracheal tube 3.5 cm above the davon. Transesophageal catheter is seen with the tip at the pylorus. A right-sided internal jugular central venous catheter is present with the tip in the right atrium. Again seen are dense opacifications in the right mid and lower lung which could represent pneumonia. The retrocardiac opacity persists as well. No pneumothorax is seen on this semi upright view, however one is not entirely excluded. The cardiomediastinal silhouette is stable. I have personally reviewed the images and the above interpretation and agree with the findings. Jessika Rivera MD IMG DIAGNOSTIC IMAGI NG ORDERABLES * (ABNORMAL) CALCIUM, IONIZED (05/08/2008 13:04 EST) Calcium, Ionized 1.42(H) 1.12 - 1.32 mmol/L ANISHA [facility] staff design engineer [place] [id number] Test performed by Chemistry [facility] 05/08/2008 13:0 4 EST 05/08/2008 13:08 EST Jose Alejandro Castro MD CHEMISTRY & BLOOD GA S ORDERABLES Performing Organization Address [facility] de Phone Number [facility] [address] [place] [address] * (ABNORMAL) PHOSPHORUS (05/08/2008 12:57 EST) Phosphorus <1.0(L) 2.7 - 4.7 mg/dl [facility] Comment:Sample retested, res ult confirmed 05/08/2008 12:5 7 EST 05/08/2008 12:57 EST Jose Alejandro Castro MD CHEMISTRY & BLOOD GA S ORDERABLES Performing Organization Address [facility] de Phone Number [facility] [address] [place] [address] * (ABNORMAL) HEMAGRAM AND DIFFERENTIAL (05/08/2008 12:57 EST) WBC 20.03(H) 4.6 - 11.2 K/cmm [facility] RBC 3.88(L) 4.50 - 5.30 M/cmm [facility] Hemoglobin 10.2(L) 13.0 - 16.0 gm/dl [facility] HCT 29.8(L) 37.0 - 49.0 % [facility] MCV 77(L) 78 - 98 fl [facility] MCH 26.4 pg [facility] MCHC 34.3 gm/dl [facility] PLT 141(L) 156 - 312 K/cmm [facility] RDW-CV 17.5 % [facility] Neutrophils 65.0 % [facility] % Bands 27.0 % [facility] Lymphocytes 3.0 % [facility] Monocytes 1.0 % [facility] % Metamyelocytes 4.0 % [facility] ABS Neutrophils 13.02 K/cmm MELONIEoNe ELLE [facility] ABS Bands 5.41 K/cmm [facility] ABS Lymphs 0.60 K/cmm [facility] ABS Monocytes 0.20 K/cmm TRUE ER [facility] Metamyelocytes 0.80 K/cmm [facility] RBC Morphology 1+ Poikilocytosis 1+ Anisocytosis 1+ Microcytes 1+ Ovalocytes [facility] Comment Rev'd by Pathologist ANISHA GARCIA Type of Diff: Manual MELONIEMARSHA HILDA [facility] 05/08/2008 12:5 7 EST 05/08/2008 12:57 EST Jose Alejandro Castro MD PACKAGES & DNA PROBE ORDERABLES Performing Organization Address [facility] Co de Phone Number [facility] [address] [place] [address] * (ABNORMAL) TOTAL PROTEIN (05/08/2008 12:57 EST) Total Protein 5.0(L) 6.3 - 8.6 g/dl [facility] 05/08/2008 12:5 7 EST 05/08/2008 12:57 EST Jose Alejandro Castro MD CHEMISTRY & BLOOD GA S ORDERABLES Performing Organization Address [facility] Co de Phone Number ANISHA [facility] [address] [place] [address] * (ABNORMAL) GLUCOSE, SERUM (05/08/2008 12:57 EST) Pathologist [facility] Glucose, Serum 488(H) 70 - 100 mg/dl [facility] 05/08/2008 12:5 7 EST 05/08/2008 12:57 EST Jose Alejandro Castro MD CHEMISTRY & BLOOD GA S ORDERABLES Performing Organization Address [facility] Phone Number [facility] [address] [place] [address] * (ABNORMAL) MAGNESIUM (05/08/2008 12:57 EST) Magnesium 1.4(L) 1.7 - 2.8 mg/dl [facility] 05/08/2008 12:5 7 EST 05/08/2008 12:57 EST Jose Alejandro Castro MD CHEMISTRY & BLOOD GA S ORDERABLES Performing Organization Address [facility] Phone Number [facility] [address] [place] [address] * TOTAL & DIRECT BILIRUBIN (05/08/2008 12:57 EST) Conjugated Bilirubin 0.0 0.0 - 0.3 mg/dl [facility] Unconjugated Bilirubin 0.3 0.1 - 1.1 mg/dl [facility] Bilirubin, Total <0.5 0.0 - 1.4 mg/dl [facility] 05/08/2008 12:5 7 EST 05/08/2008 12:57 EST Jose Alejandro Castro MD CHEMISTRY & BLOOD GA S ORDERABLES Performing Organization Address [facility] Co hi Phone Number [facility] [address] [place] [address] * (ABNORMAL) ALBUMIN (05/08/2008 12:57 EST) Albumin 2.7(L) 3.0 - 5.5 g/dl [facility] 05/08/2008 12:5 7 EST 05/08/2008 12:57 EST Jose Alejandro Castro MD CHEMISTRY & BLOOD GA S ORDERABLES Performing Organization Address [facility]/ZIP Co de Phone Number [facility] [address] [place] [address] * (ABNORMAL) ELECTROLYTES (05/08/2008 12:57 EST) Sodium 141 136 - 145 mEq/L [facility] Potassium 2.6(LL) 3.5 - 5.0 mEq/L [facility] Comment:Sample retested, res ult confirmed Chloride 110 96 - 110 mEq/L [facility] CO2 15(L) 24 - 32 mEq/L [facility] 05/08/2008 12:5 7 EST 05/08/2008 12:57 EST Jose Alejandro Castro MD CHEMISTRY & BLOOD GA S ORDERABLES [facility] [address] [place] [address] * CALCIUM IONIZED (05/08/2008 12:57 EST) Ionized Calcium Note Sample sent to Lab. [facility] 05/08/2008 12:5 7 EST 05/08/2008 12:57 EST Jose Alejandro Castro MD CHEMISTRY & BLOOD GA S ORDERABLES [facility] [address] [place] [address] * (ABNORMAL) BLOOD GAS, G3 ISTAT (05/08/2008 12:52 EST) pH, i-STAT 7.13(L) 7.35 - 7.45 [facility] pCO2, i-STAT 36 35 - 45 mmHg [facility] pO2, i-STAT 58(L) 85 - 100 mmHg [facility] TCO2, i-STAT 13 mEq/L [facility] O2 Saturation 82 % [facility] Base Deficit 16 [facility] Temperature 36.2 C [facility] Sample Type VENOUS ANISHA MCFARLAND staff design engineer ID [id number] Test Performed by Respiratory [facility] 05/08/2008 12:5 2 EST 05/08/2008 12:56 EST Jose Alejandro Castro MD CHEMISTRY & BLOOD GA S ORDERABLES Performing Organization Address [facility] Co de Phone Number [facility] [address] [place] [address] * (ABNORMAL) BLOOD GAS, CG4 ISTAT (05/08/2008 12:46 EST) pH, i-STAT 7.20(L) 7.35 - 7.45 [facility] pCO2, i-STAT 28(L) 35 - 45 mmHg [facility] pO2, i-STAT 101(H) 85 - 100 mmHg [facility] TCO2, i-STAT 12 mEq/L [facility] O2 Saturation 97 % [facility] Lactate, i-STAT 6.9 mmol/L [facility]I [facility] Base Deficit 16 [facility] Temperature 36.2 C [facility] Sample Type ARTERIAL ANISHA MCFARLAND staff design engineer ID [id number] Test Performed by Respiratory [facility] 05/08/2008 12:4 6 EST 05/08/2008 12:56 EST Jose Alejandro Castro MD CHEMISTRY & BLOOD GA S ORDERABLES Performing Organization Address [facility] de Phone Number [facility] [address] [place] [address] * BACTERIAL CULTURE, BLOOD (05/08/2008 12:00 EST) Specimen Description Blood Arterial Line Pediatric bottle received Volume of blood collected may not be adequate for detection of bacteremia/se pticemia. [facility] Result No growth [facility] Report Status Final [id number] [facility] 05/08/2008 12:0 0 EST 05/08/2008 12:00 EST Jose Alejandro Castro MD MICROBIOLOGY - GENER AL ORDERABLES Performing Organization Address [facility] Co de Phone Number [facility] [address] [place] [address] * BACTERIAL CULTURE, BLOOD (05/08/2008 11:59 EST) Specimen Description Blood Venous specimen. [facility] Result No growth [facility] Report Status Final [id number] [facility] 05/08/2008 11:5 9 EST 05/08/2008 11:59 EST Jose Alejandro Castro MD MICROBIOLOGY - GENER AL ORDERABLES [facility] [address] [place] [address] * ECHOCARDIOGRAM (05/08/2008 10:55 EST) Anatomical Region Laterality Modality Other 05/08/2008 10:5 5 EST Narrative 11/21/2008 8:55 EDT ? ventricular dysfunction Site Location: Date of Appt: Thursday, May 08, 2008, 10:55 AM Pediatric Echocardiogram Report Demographics and Visit Data: : 1990. ??Age: 17y/10m/23d. ??BSA (m 2): 1.78. Weight (kg): 75. ??Patient location: [place] [address]. ??Weight Centile: 67.41. Person requesting test: JOSE ALEJANDRO CASTRO MD. ??Reason for test: ? ventricular dysfunction. Referral diagnosis: sepsis, hypotension. ??Procedure Description: 2D ECHOCARDIOGRAM W/WO M-MODE. Summary: Technically difficult study in an intubated and sedated patient in the intensive care unit. Arch imaging was not performed due to patient position. No significant structural abnormality identified. Trivial mitral regurgitation with normal Doppler study of the other intracardiac valves. Normal left ventricular size and wall thickness with globally hyperdynamic systolic function. No regional wall motion abnormalities identified. Qualitatively good right ventricular systolic function with normal chamber size and no significant right ventricular hypertension by septal position. No pericardial effusion seen. Findings: Veins and Atria: (Incompletely examined) >> Atrial septal defect, ruled out The atrial septum appears intact by imaging and color doppler. A-V Canal: >> Mitral regurgitation, trivial >> Normal Tricuspid Valve Ventricles: >> Global left ventricular dysfunction, ruled out Hyperdynamic left ventricular function on dobutamine, milrinone and epinephrine. No significant change in global hyperkinesis with discontinuation of epinephrine. No regional wall motion abnormalities appreciated. >> Left ventricular dilation or enlargement, ruled out >> Right ventricular dysfunction global, ruled out Qualitatively good right ventricular systolic function. >> Right ventricular dilation or enlargement, ruled out >> Right ventricular hypertension, ruled out By normal septal position in systole, the estimated right ventricular pressure appears to be less than 50% systemic. Conotruncus: >> Valvar aortic stenosis, ruled out >> Valvar pulmonary stenosis, ruled out Great Arteries: (Incompletely examined) Pericardium: >> Pericardial effusion, ruled out Measures: M-Mode: Name ? Value ?Units ?Z-Score ?Min ?Max LV Diastolic Septal Thickness ? 0.90 ? cm ? -0.43 ? 0.7 ? 1.33 LV Diastolic Dimension ? 5.25 ? cm ? 0.55 ?4.27 ?5.9 LV Diastolic Wall Thickness ? 0.93 ? cm ? 0. ?0.72 ?1.2 LV Systolic Dimension ? 2.63 ? cm ? -2.34 ? 2.74 ?4.12 LV Fractional Shortening ? 49.90 ?% ?6.98 ?27.89 ?? 37.58 LV Systolic Function: Name ? Value ?Units ?Z-Score ?Min ?Max Endocardial FS ? 49.90 ?% ?6.98 ?27.89 ?? 37.58 FS Vs Stress ? 49.90 ?% Cardiac Geometry: Name ? Value ?Units ?Z-Score ?Min ?Max M-Mode LV Mass ? 175.48 ? g ?0.22 ?113.15 ??249.41 M-Mode LV Mass Index ? 98.58 ?g/m 2 LV Midwall Diastolic Dimension ? 6.18 ? cm [facility]'s Name: YASMINE MEJIA MD Date/time of reading: May 09 2008 - 11:30:43 AM Report created at 11:31:25 AM on Friday, May 09, 2008 Procedure Note Yasmine Mejia MD - 11/21/2008 ? ventricular dysfunction Site Location: Date of Appt: Thursday, May 08, 2008, 10:55 AM Pediatric Echocardiogram Report Demographics and Visit Data: : 1990. Age: 17y/10m/23d. BSA (m 2): 1.78. Weight (kg): 75. Patient location: [place] [address]. Weight Centile: 67.41. Person requesting test: JOSE ALEJANDRO CASTRO MD. Reason for test: ?ventricular dysfunction. Referral diagnosis: sepsis, hypotension. Procedure Description: 2D ECHOCARDIOGRAM W/WO M-MODE. Summary: Technically difficult study in an intubated and sedated patient in the intensive care unit. Arch imaging was not performed due to patient position. No significant structural abnormality identified. Trivial mitral regurgitation with normal Doppler study of the other intracardiac valves. Normal left ventricular size and wall thickness with globallyhyperdynamic systolic function. No regional wall motion abnormalities identified. Qualitatively good right ventricular systolic function with normalchamber size and no significant right ventricular hypertension by septalposition. No pericardial effusion seen. Findings: Veins and Atria: (Incompletely examined) >> Atrial septal defect, ruled out The atrial septum appears intact by imaging and color doppler. A-V Canal: >> Mitral regurgitation, trivial >> Normal Tricuspid Valve Ventricles: >> Global left ventricular dysfunction, ruled out Hyperdynamic left ventricular function on dobutamine, milrinone and epinephrine. No significant change in global hyperkinesis with discontinuation of epinephrine. No regional wall motion abnormalities appreciated. >> Left ventricular dilation or enlargement, ruled out >> Right ventricular dysfunction global, ruled out Qualitatively good right ventricular systolic function. >> Right ventricular dilation or enlargement, ruled out >> Right ventricular hypertension, ruled out By normal septal position in systole, the estimated right ventricular pressure appears to be less than 50% systemic. Conotruncus: >> Valvar aortic stenosis, ruled out >> Valvar pulmonary stenosis, ruled out Great Arteries: (Incompletely examined) Pericardium: >> Pericardial effusion, ruled out Measures: M-Mode: Name Value Units Z-Score Min Max LV Diastolic Septal Thickness 0.90 cm -0.43 0.7 1.33 LV Diastolic Dimension 5.25 cm 0.55 4.27 5.9 LV Diastolic Wall Thickness 0.93 cm 0. 0.72 1.2 LV Systolic Dimension 2.63 cm -2.34 2.74 4.12 LV Fractional Shortening 49.90 % 6.98 27.89 37.58 LV Systolic Function: Name Value Units Z-Score Min Max Endocardial FS 49.90 % 6.98 27.89 37.58 FS Vs Stress 49.90 % Cardiac Geometry: Name Value Units Z-Score Min Max M-Mode LV Mass 175.48 g 0.22 113.15 249.41 M-Mode LV Mass Index 98.58 g/m 2 LV Midwall Diastolic Dimension 6.18 cm [facility] Name: YASMINE MEJIA MD Date/time of reading: May 09 2008 - 11:30:43 AM Report created at 11:31:25 AM on Friday, May 09, 2008 Jose Alejandro Castro MD CARDIAC ECHO ORDERAB LES * BACTERIAL CULTURE/SMEAR, RESPIRATORY (05/08/2008 10:20 EST) Specimen Description Bronchoalveolar Lavage Blind [facility] Gram Smear Result Polys present Alveolar macrophages present present Gram positive cocci present Gram negative bacilli present Results reviewed by supervisory staff [facility] Result 10,000 to 100,000 CFU/ml STAPHYLOCOCCUS COAGULASE POSITIVE (STAPHYLOCOCCUS AUREUS) Less than 10,000 CFU/ml Gram positive cocci [facility] Report Status Final 05/10/2008 [facility] 05/08/2008 10:2 0 EST 05/08/2008 12:07 EST Narrative Organism Antibiotic Method Susceptibility 10,000 to 100,000 cfu/ml staphylococcus coagulase positive (staphylococcus aureus) Susceptibility comment SUSCEPTIBILITY (TRISTEN) Susceptible to nafcillin, cephalosporins and other beta lactam antibiotics (mecA gene product absent). Resistant 10,000 to 100,000 cfu/ml staphylococcus coagulase positive (staphylococcus aureus) Oxacillin SUSCEPTIBILITY (TRISTEN) 0.5 Susceptible 10,000 to 100,000 cfu/ml staphylococcus coagulase positive (staphylococcus aureus) Cefazolin SUSCEPTIBILITY (TRISTEN) <=8 Susceptible 10,000 to 100,000 cfu/ml staphylococcus coagulase positive (staphylococcus aureus) Vancomycin SUSCEPTIBILITY (TRISTEN) <=0.5 Susceptible 10,000 to 100,000 cfu/ml staphylococcus coagulase positive (staphylococcus aureus) Erythromycin SUSCEPTIBILITY (TRISTEN) <=0.5 Susceptible 10,000 to 100,000 cfu/ml staphylococcus coagulase positive (staphylococcus aureus) Clindamycin SUSCEPTIBILITY (TRISTEN) <=0.5 Susceptible 10,000 to 100,000 cfu/ml staphylococcus coagulase positive (staphylococcus aureus) Ciprofloxacin SUSCEPTIBILITY (TRISTEN) <=0.5 Susceptible Jose Alejandro Castro MD MICROBIOLOGY - GENER AL ORDERABLES [facility] [address] [place] [address] * (ABNORMAL) BLOOD GAS, G3 ISTAT (05/08/2008 8:45 EST) pH, i-STAT 7.16(L) 7.35 - 7.45 [facility] pCO2, i-STAT 43 35 - 45 mmHg [facility] pO2, i-STAT 66(L) 85 - 100 mmHg [facility] TCO2, i-STAT 16 mEq/L [facility] O2 Saturation 86 % [facility] Base Deficit 13 [facility] Sample Type NOT GIVEN ANISHA MCFARLAND staff design engineer ID [id number] Test Performed by Respiratory [facility] 05/08/2008 8:45 EST 05/08/2008 8:51 EST Jose Alejandro Castro MD CHEMISTRY & BLOOD GA S ORDERABLES Performing Organization Address [facility] Phone Number [facility] [address] [place] [address] * (ABNORMAL) BLOOD GAS, CG4 ISTAT (05/08/2008 8:35 EST) [facility] pH, i-STAT 7.22(L) 7.35 - 7.45 [facility] pCO2, i-STAT 32(L) 35 - 45 mmHg [facility] pO2, i-STAT 114(H) 85 - 100 mmHg [facility] TCO2, i-STAT 14 mEq/L [facility] O2 Saturation 98 % [facility] Lactate, i-STAT 4.8 mmol/L [facility] Base Deficit 14 [facility] Temperature 35.4 C [facility] Sample Type ARTERIAL ANISHA MCFARLAND staff design engineer ID [id number] Test Performed by Respiratory [facility] 05/08/2008 8:35 EST 05/08/2008 8:51 EST Jose Alejandro Castro MD CHEMISTRY & BLOOD GA S ORDERABLES Performing Organization Address [facility] Phone Number [facility] [address] [place] [address] * ABDOMEN AP 1 VIEW (05/08/2008 8:35 EST) Anatomical Region Laterality Modality Other 05/08/2008 8:35 EST Narrative 11/21/2008 10:22 EDT 17 yo with respiratory failure +PNA, intubated, eval lung dubose, check ETT placement, Left femeral CVL and right femeral A-line in place- check KUB ABDOMEN AP 1 VIEW ??May 08, 2008 8:35:00 AM Clinical History: 17 yo with respiratory failure +PNA, intubated, eval lung dubose, check ETT placement, Left femeral CVL and right femeral A-line in place- check KUB Findings: Portable view of the chest shows endotracheal tube tip mid trachea. Lung volumes are low. Cardiomediastinal is normal in size, shape and position. There is a homogeneous opacification in the medial right lower lung which could represent a pneumonia. Increased density is also seen in the retrocardiac area on the left. There is marked gaseous distention of the stomach. Supine portable view the abdomen again shows marked gaseous distention of the stomach. Gas is also seen throughout what appears to be small bowel and scattered air in the colon extending to the pelvis. Entire pelvis is not included on the radiograph. Left-sided central venous catheter tip entering from the region of the left hip projects at the L5 vertebral body level. A thin radiopaque catheter entering from the right groin ??has a tip which projects just medial to the inferior right SI joint. Degenerative changes of the hips may be present. Impression: RLL and possibly LLL pneumonia. 2. Marked gaseous distention of the stomach. 3. Abnormal bowel gas pad pattern with generalized gaseous distention. 4. Position of endotracheal tube and ??vascular catheters described above. Procedure Note Carmel Jerez MD - 11/21/2008 17 yo with respiratory failure +PNA, intubated, eval lung dubose, check ETT placement, Left femeral CVL and right femeral A-line in place- check KUB ABDOMEN AP 1 VIEW May 08, 2008 8:35:00 AM Clinical History: 17 yo with respiratory failure +PNA, intubated, eval lung dubose, check ETT placement, Left femeral CVL and right femeral A-line in place- check KUB Findings: Portable view of the chest shows endotracheal tube tip mid trachea. Lung volumes are low. Cardiomediastinal is normal in size, shape and position. There is a homogeneous opacification in the medial right lower lung which could represent a pneumonia. Increased density is also seen in the retrocardiac area on the left. There is marked gaseous distention of the stomach. Supine portable view the abdomen again shows marked gaseous distention of the stomach. Gas is also seen throughout what appears to be small bowel and scattered air in the colon extending to the pelvis. Entire pelvis is not included on the radiograph. Left-sided central venous catheter tip entering from the region of the left hip projects at the L5 vertebral body level. A thin radiopaque catheter entering from the right groin has a tip which projects just medial to the inferior right SI joint. Degenerative changes of the hips may be present. Impression: RLL and possibly LLL pneumonia. 2. Marked gaseous distention of the stomach. 3. Abnormal bowel gas pad pattern with generalized gaseous distention. 4. Position of endotracheal tube and vascular catheters described above. Zain Benavides MD IMG DIAGNOSTIC IMAGI NG ORDERABLES * PORTABLE CHEST 1 VIEW (05/08/2008 8:35 EST) Anatomical Region Laterality Modality Other 05/08/2008 8:35 EST Narrative 11/21/2008 10:22 EDT 17 yo with respiratory failure +PNA, intubated, eval lung dubose, check ETT placement, Left femeral CVL and right femeral A-line in place- check KUB ABDOMEN AP 1 VIEW ??May 08, 2008 8:35:00 AM Clinical History: 17 yo with respiratory failure +PNA, intubated, eval lung dubose, check ETT placement, Left femeral CVL and right femeral A-line in place- check KUB Findings: Portable view of the chest shows endotracheal tube tip mid trachea. Lung volumes are low. Cardiomediastinal is normal in size, shape and position. There is a homogeneous opacification in the medial right lower lung which could represent a pneumonia. Increased density is also seen in the retrocardiac area on the left. There is marked gaseous distention of the stomach. Supine portable view the abdomen again shows marked gaseous distention of the stomach. Gas is also seen throughout what appears to be small bowel and scattered air in the colon extending to the pelvis. Entire pelvis is not included on the radiograph. Left-sided central venous catheter tip entering from the region of the left hip projects at the L5 vertebral body level. A thin radiopaque catheter entering from the right groin ??has a tip which projects just medial to the inferior right SI joint. Degenerative changes of the hips may be present. Impression: RLL and possibly LLL pneumonia. 2. Marked gaseous distention of the stomach. 3. Abnormal bowel gas pad pattern with generalized gaseous distention. 4. Position of endotracheal tube and ??vascular catheters described above. Procedure Note Carmel Jerez MD - 11/21/2008 17 yo with respiratory failure +PNA, intubated, eval lung dubose, check ETT placement, Left femeral CVL and right femeral A-line in place- check KUB ABDOMEN AP 1 VIEW May 08, 2008 8:35:00 AM Clinical History: 17 yo with respiratory failure +PNA, intubated, eval lung dubose, check ETT placement, Left femeral CVL and right femeral A-line in place- check KUB Findings: Portable view of the chest shows endotracheal tube tip mid trachea. Lung volumes are low. Cardiomediastinal is normal in size, shape and position. There is a homogeneous opacification in the medial right lower lung which could represent a pneumonia. Increased density is also seen in the retrocardiac area on the left. There is marked gaseous distention of the stomach. Supine portable view the abdomen again shows marked gaseous distention of the stomach. Gas is also seen throughout what appears to be small bowel and scattered air in the colon extending to the pelvis. Entire pelvis is not included on the radiograph. Left-sided central venous catheter tip entering from the region of the left hip projects at the L5 vertebral body level. A thin radiopaque catheter entering from the right groin has a tip which projects just medial to the inferior right SI joint. Degenerative changes of the hips may be present. Impression: RLL and possibly LLL pneumonia. 2. Marked gaseous distention of the stomach. 3. Abnormal bowel gas pad pattern with generalized gaseous distention. 4. Position of endotracheal tube and vascular catheters described above. Zain Benavides MD IMG DIAGNOSTIC IMAGI NG ORDERABLES * (ABNORMAL) BLOOD GAS, CG4 ISTAT (05/08/2008 8:28 EST) pH, i-STAT 7.22(L) 7.35 - 7.45 [facility] pCO2, i-STAT 32(L) 35 - 45 mmHg [facility] pO2, i-STAT Results not available 85 - 100 mmHg [facility] TCO2, i-STAT 14 mEq/L [facility] O2 Saturation Results not available % [facility] Lactate, i-STAT Results not available mmol/L [facility] Base Deficit 14 [facility] Temperature 35.4 C [facility] Sample Type ARTERIAL [facility] staff design engineer ID [id number] Test Performed by Respiratory [facility] 05/08/2008 8:28 EST 05/08/2008 8:51 EST Jose Alejandro Castro MD CHEMISTRY & BLOOD GA S ORDERABLES Performing Organization Address [facility] Co de Phone Number [facility] [address] [place] [address] * (ABNORMAL) GLUCOSE, GLUCOMETER (05/08/2008 8:24 EST) Glucose, Fingerstick 173(H) 70 - 100 mg/dl [facility] Milk And Cream Grader ID [id number] Test Performed by Nursing Services [facility] 05/08/2008 8:24 EST 05/08/2008 21:19 EST Jose Alejandro Castro MD CHEMISTRY & BLOOD GA S ORDERABLES Performing Organization Address [facility] de Phone Number [facility] [address] [place] [address] * (ABNORMAL) BLOOD GAS, CG4 ISTAT (05/08/2008 6:56 EST) pH, i-STAT 7.12(L) 7.35 - 7.45 [facility] pCO2, i-STAT 50(H) 35 - 45 mmHg [facility] pO2, i-STAT 50(L) 85 - 100 mmHg [facility] TCO2, i-STAT 18 mEq/L [facility] O2 Saturation 76 % [facility] Lactate, i-STAT 4.7 mmol/L [facility] Base Deficit 13 [facility] Temperature 35.4 C [facility] FIO2 100 [facility] Sample Type VENOUS [facility] staff design engineer ID [id number] Test Performed by Respiratory [facility] 05/08/2008 6:56 EST 05/08/2008 18:53 EST Jose Alejandro Castro MD CHEMISTRY & BLOOD GA S ORDERABLES Performing Organization Address [facility] de Phone Number [facility] [address] [place] [address] * PTT (05/08/2008 6:50 EST) PTT 33 20 - 35 secs [facility] Comment:Therapeutic Heparin range: 60-100 seconds 05/08/2008 6:50 EST 05/08/2008 7:00 EST Jose Alejandro Castro MD HEMATOLOGY & PF4 ORD ERABLES Performing Organization Address [facility] de Phone Number [facility] [address] [place] [address] * (ABNORMAL) PROTIME (05/08/2008 6:50 EST) Pro Time 16.3(H) 12.0 - 15.0 secs [facility] I.N.R. 1.3(H) 0.9 - 1.1 Ratio [facility] Comment: Moderate Intensity Coumadin INR = 2.0-3.0 Adjustments in anticoagulant therapy dose should be based upon the INR and NOT the Pro Time. 05/08/2008 6:50 EST 05/08/2008 7:00 EST Jose Alejandro Castro MD HEMATOLOGY & PF4 ORD ERABLES Performing Organization Address [facility] de Phone Number [facility] [address] [place] [address] * FIBRINOGEN (05/08/2008 6:50 EST) Fibrinogen 406 220 - 410 mg/dl [facility] 05/08/2008 6:50 EST 05/08/2008 7:00 EST Jose Alejandro Castro MD HEMATOLOGY & PF4 ORD ERABLES Performing Organization Address [facility] de Phone Number [facility] [address] [place] [address] * (ABNORMAL) D-DIMER (05/08/2008 6:50 EST) D-Dimer 1.88(H) <0.50 ug FEU/ml [facility] Comment: The presence of rheumatoid factor (RF) at a level greater than 50IU/ml may ?lead to an over-estimation of the D-Dimer level. ??It is therefore ?recommended that the presence of RF in the test samples be confirmed by an ?appropriate RF procedure for cases of unexplained D-Dimer positive results. CUTOFF VALUE FOR THE EXCLUSION OF DVT and PE: 0.5 ug FEU/mL 05/08/2008 6:50 EST 05/08/2008 7:00 EST Jose Alejandro Castro MD HEMATOLOGY & PF4 ORD ERABLES [facility] [address] [place] [address] * (ABNORMAL) HEMAGRAM AND DIFFERENTIAL (05/08/2008 6:50 EST) WBC 8.29 4.6 - 11.2 K/cmm [facility] RBC 4.33(L) 4.50 - 5.30 M/cmm [facility] Hemoglobin 11.4(L) 13.0 - 16.0 gm/dl [facility] HCT 33.7(L) 37.0 - 49.0 % [facility] MCV 78 78 - 98 fl [facility] MCH 26.3 pg [facility] MCHC 33.8 gm/dl [facility] PLT 152(L) 156 - 312 K/cmm [facility] RDW-CV 16.6 % [facility] Neutrophils 53.0 % [facility] % Bands 4.0 % [facility] Lymphocytes 35.0 % [facility] Monocytes 5.0 % [facility] % Metamyelocytes 3.0 % [facility] Nucleated RBC's 1 /100 WBC'S [facility] ABS Neutrophils 4.40 K/cmm [facility] ABS Bands 0.33 K/cmm [facility] ABS Lymphs 2.90 K/cmm [facility] ABS Monocytes 0.41 K/cmm [facility] ABS Metamyelocytes 0.25 K/cmm [facility] RBC Morphology 1+ Anisocytosis 1+ Poikilocytosis 1+ Microcytes 1+ Ovalocytes [facility] Platelet Morphology 1+ Clumped platelets [facility] Type of Diff: Manual [facility] 05/08/2008 6:50 EST 05/08/2008 7:00 EST Jose Alejandro Castro MD PACKAGES & DNA PROBE ORDERABLES Performing Organization Address [facility] Co de Phone Number [facility] [address] [place] [address] * TROPONIN I (05/08/2008 6:50 EST) Pathologist [facility] Troponin I pre 2012 1.34 ng/ml [facility] Comment: Reference Range: Normal: ??Less than 0.05 Indeterminate: ??0.05-0.80 Positive: ??Greater than 0.80 05/08/2008 6:50 EST 05/08/2008 13:16 EST Jose Alejandro Castro MD CHEMISTRY & BLOOD GA S ORDERABLES Performing Organization Address [facility] de Phone Number [facility] [address] [place] [address] * LACTIC ACID (05/08/2008 6:50 EST) Pathologist [facility] Lactic Acid 5.0 mmol/L [facility] 05/08/2008 6:50 EST 05/08/2008 13:16 EST Jose Alejandro Castro MD CHEMISTRY & BLOOD GA S ORDERABLES Performing Organization Address [facility] Co de Phone Number [facility] [address] [place] [address] * (ABNORMAL) CK MB WITH TOTAL CK (05/08/2008 6:50 EST) Pathologist [facility] CK 140 U/L [facility] MB 9.0(H) 0 - 5.0 ng/ml [facility] CK-MB Index 6.4(H) 0 - 2.5 [facility] 05/08/2008 6:50 EST 05/08/2008 13:16 EST Jose Alejandro Castro MD CHEMISTRY & BLOOD GA S ORDERABLES Performing Organization Address [facility] Co de Phone Number [facility] [address] [place] [address] * (ABNORMAL) ALT (05/08/2008 6:50 EST) ALT 55(H) 0 - 45 U/L [facility] 05/08/2008 6:50 EST 05/08/2008 13:16 EST Jose Alejandro Castro MD CHEMISTRY & BLOOD GA S ORDERABLES Performing Organization Address [facility] Phone Number [facility] [address] [place] [address] * (ABNORMAL) AST (05/08/2008 6:50 EST) AST 51(H) 15 - 46 U/L [facility] 05/08/2008 6:50 EST 05/08/2008 13:16 EST Jose Alejandro Castro MD CHEMISTRY & BLOOD GA S ORDERABLES Performing Organization Address [facility] Co hi Phone Number [facility] [address] [place] [address] * (ABNORMAL) GGT (05/08/2008 6:50 EST) GGT 42(H) 10 - 35 U/L [facility] 05/08/2008 6:50 EST 05/08/2008 13:16 EST Jose Alejandro Castro MD CHEMISTRY & BLOOD GA S ORDERABLES Performing Organization Address [facility] Co de Phone Number [facility] [address] [place] [address] * (ABNORMAL) PHOSPHORUS (05/08/2008 6:50 EST) Phosphorus 1.6(L) 2.7 - 4.7 mg/dl [facility] 05/08/2008 6:50 EST 05/08/2008 13:16 EST Jose Alejandro Castro MD CHEMISTRY & BLOOD GA S ORDERABLES Performing Organization Address [facility] Phone Number [facility] [address] [place] [address] * MAGNESIUM (05/08/2008 6:50 EST) Magnesium 1.7 1.7 - 2.8 mg/dl [facility] 05/08/2008 6:50 EST 05/08/2008 13:16 EST Jose Alejandro Castro MD CHEMISTRY & BLOOD GA S ORDERABLES Performing Organization Address [facility] Phone Number [facility] [address] [place] [address] * (ABNORMAL) GLUCOSE, SERUM (05/08/2008 6:50 EST) Glucose, Serum 66(L) 70 - 100 mg/dl [facility] 05/08/2008 6:50 EST 05/08/2008 13:16 EST Jose Alejandro Castro MD CHEMISTRY & BLOOD GA S ORDERABLES Performing Organization Address [facility] de Phone Number [facility] [address] [place] [address] * (ABNORMAL) CREATININE (05/08/2008 6:50 EST) Creatinine 2.10(H) 0.6 - 1.2 mg/dl [facility] GFR, Calculated Age <18 ml/min/1.7 3m2 [facility] 05/08/2008 6:50 EST 05/08/2008 13:16 EST Jose Alejandro Castro MD CHEMISTRY & BLOOD GA S ORDERABLES [facility] [address] [place] [address] * (ABNORMAL) BUN (05/08/2008 6:50 EST) BUN 25(H) 8 - 21 mg/dl [facility] 05/08/2008 6:50 EST 05/08/2008 13:16 EST Jose Alejandro Castro MD CHEMISTRY & BLOOD GA S ORDERABLES Performing Organization Address [facility] Co de Phone Number [facility] [address] [place] [address] * (ABNORMAL) ELECTROLYTES (05/08/2008 6:50 EST) Sodium 144 136 - 145 mEq/L [facility] Potassium 2.9(LL) 3.5 - 5.0 mEq/L [facility] Comment:Sample retested, res ult confirmed Chloride 113(H) 96 - 110 mEq/L [facility] CO2 18(L) 24 - 32 mEq/L [facility] 05/08/2008 6:50 EST 05/08/2008 13:16 EST Jose Alejandro Castro MD CHEMISTRY & BLOOD GA S ORDERABLES Performing Organization Address [facility] Co de Phone Number [facility] [address] [place] [address] * (ABNORMAL) DELTA CREATININE (05/08/2008 6:50 EST) Delta Creatinine Elevated initial creatinine or critical change in creatinine value.(AA) [facility] 05/08/2008 6:50 EST 05/08/2008 13:16 EST Jose Alejandro Castro MD CHEMISTRY & BLOOD GA S ORDERABLES Performing Organization Address [facility] Co de Phone Number [facility] [address] [place] [address] * GLUCOSE, GLUCOMETER (05/08/2008 6:31 EST) Glucose, Fingerstick 84 70 - 100 mg/dl [facility] Milk And Cream Grader ID [id number] Test Performed by Nursing Services [facility] 05/08/2008 6:31 EST 05/08/2008 21:19 EST Jose Alejandro Castro MD CHEMISTRY & BLOOD GA S ORDERABLES Performing Organization Address City/State/[facility] Co de Phone Number [facility] [address] [place] [address] documented in this encounter Visit Diagnoses Not on filedocumented in this encounter
--- OUTSIDE RECORDS SUMMARY | 2024-03-05 15:50 | XMS_ITS | Encounter Summary ---
Author Organization [facility] Address [address] [place] [address] Care Team Providers Care [employer] Name Role Phone Yan Demarco MD Primary Care Provider Corin Skinner MD Primary Care Provider [phone] Encounter Details Date Type Department Care Team (Late st Contact Info) Description 02/08/2008 Office Visit [facility] [address] [place] [address] Yossi Murphy MD [address] [facility], [address] [place] [address] Social History Tobacco Use Types Packs/Day Years Used Date Smoking Tobacco: Never Assessed Sex and Gender Information Value Date Recorded Sex Assigned at Not on file Gender Identity Not on file Sexual Orientation Not on file documented as of this encounter Progress Notes * Yossi Murphy IV, MD - 08/25/2009 1514 EST Department - Physician Summary Registration Date/Time: 02/08/2008 22:22 Time Seen; upon arrival. Historian- family. HISTORY OF PRESENT ILLNESS Chief Complaint: DECREASED MENTAL STATUS. This started yesterday and is still present. It was gradual in onset (Worse over last 8 hours, last speech at approximately 4pm). He is described as having decreased responsiveness. 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 . No change in diabetic routine or alcohol recently. Dextro stick was not low prior to arrival. He has had difficulty walking. Is not usually alert and oriented X3. Does not usually have normal mobility. The patient has had similar symptoms many times previously. (last admit 11/2007). The patient was seen recently at another facility in the office. REVIEW OF SYSTEMS Unobtainable due to patient's altered mental status and unresponsiveness. PAST HISTORY See nurses notes. (craniophanygioma, panhypopituitarism, diabetes insipidus, cognitive delay, s/p thalamic bleed). Medications: The patient's medications have been reviewed. Allergies: The patient's allergies have been reviewed. SOCIAL HISTORY Nonsmoker. FAMILY HISTORY Negative. ADDITIONAL NOTES The nursing notes have been reviewed. PHYSICAL EXAM Appearance: lethargic, moaning. Vital Signs: Have been reviewed- bradycardic; respiratory rate normal; temperature normal. ENT: Pharynx normal. scars s/p craniectomy. Neck: Neck supple. CVS: Bradycardia. Respiratory: No respiratory distress. Skin: Normal skin color. Skin warm and dry. Neuro: Altered mental status. Best verbal response: incoherent speech. LABS, X-RAYS, AND EKG Chemistries: Marked hyponatremia- 117. Pulse Oximetry: O2 saturation- 100% (FIO2 - room air). Interpretation: normal. PROGRESS AND PROCEDURES E.D. Course: Please see nursing flow and orders for further details. Pt presents with altered mental status, hx of same with hyponatremia. Saline locked and placed on fluid restriction, labs including sodium/lytes/cortisol/thyroid fxn ordered, and stress dose of steroids ordered at 22:30 based on presentation. When sodium returned value of 117, endocrine attending (Jacqueline Meng) and pediatric resident notified. Per Dr. Meng's instructions, admit PICU, hydrocortisone and desmopressin with continued volume restriction for slow correction of hyponatremia. Family demanded that Dr. NAVI Davis bepaged; Ryan paged but informed PAS that Dr. Meng would be managing. Family v. angry, berating pediatric and FP residents, nursing staff, and physicians. Family convinced that all of pt's medical problems, including his endocrine and cognitive issues, are a result of mismanagement. At pt's family's request, PICU attending at [facility] notified. PICU attending agreed with plan of care and states willing to accept pt in a.m. - no beds available at this time but anticipate opening in a.m. Multiple lengthy conversations with family regarding risk/benefits of saline/hypertonic saline in this pt; endocrine and myself made decisionto volume restrict with slow correction given seizure hx. IVF isha decided upon by admitting team; Taqueria requests volume restriction. Pt's family also insisting that pt be given 'antidote' for temazepam; advised that administration of flumazenil in this pt is contraindicated due to seizure risk. Pt's HR slowly increasing in ED to upper 40s with climb of BPs into low 100s after IV steroids. Admit PICU.. Hydrocortisone given IVP. (desmopressin). Discussed case with physician Dr. Meng (peds endocrine), peds resident, PICU attending physician at [facility]. Reviewed test results. Agreed upon treatment plan. Patient/family counseled. Old medical records ordered. Disposition: Admitted to Pediatric Intensive Care Unit. CLINICAL IMPRESSION Acute mental status change. Adrenal disease. Hyponatremia. (Electronically signed by Dheeraj Murphy MD 02/09/2008 2:42) Department - Nursing Summary Registration Date/Time: 02/08/2008 22:22 TRIAGE Initial Assessment Triage time 22:23. Acuity: LEVEL 3. BP: 104 / 56. HR: 42. RR: 8. O2 saturation: 100% room air. --2231 Dinorah Boyd R.N.. Medications (seroquel 600mg hs, desmopressin 1mg tid, levothyroxine 150mcg qd, calcium, vitamin d, niacin 1000mg tid, [id number] hs, hydrocortisone 5mg -2tabs am, 1 tab noon, 1 tab hs, temazepam 15 mg hs, dilantin 100mg tid, testosterone injection 200 mg every 21 days). --2235 Dinorah Boyd R.N.. Allergies (Lopid ). --2231 Dinorah Boyd R.N.. History Chief Complaint: ALTERED MENTAL STATUS and (decreased level of consciousness). Pain level: unable to obtain due to patient condition. PAST HX: (3 years ago brain surgery, cva post surgery, diabetis insipidus, panhypopituitarism, depression, cortisone deficiency, visual impairment, pica, partial paralysis). SOCIAL HX: Nonsmoker. No alcohol use. Functional assessment performed: requires total care with theactivities of daily living; communication barrier present- this communication barrier isan ongoing problem; visual impairment present- this visual impairment is an ongoing problem. The nutritional risk assessment revealed no deficiencies. No report of abuse. Arrived by private vehicle and accompanied by family and mother and father.Historian: family. --2231 Dinorah Boyd R.N.. PHYSICAL ASSESSMENT Appears in no acute distress. Decreased awareness (lethargic). Respirations not labored. Breath sounds within normal limits. Cardiac rhythm: sinus bradycardia. Abdomen soft. Bowel sounds within normal limits. Skin is warm and dry. --2237 Bryant Baker R.N.. NURSING PROGRESS NOTES (delivery man at bedside.). --2236 Bryant Baker R.N. (FS BS = 96. MD at bedside.). --0002 Manuel Bejarano R.N. BP: 98 / 52. HR: 45. RR: 12. O2 saturation: 98 % room air. --0031 Bryant Baker R.N. (family aggitated that care is taking so long, ed dr smith, waiting for meds from pharmacy.). --0119 Bryant Baker R.N. BP: 98 / 58. HR: 47. RR: 14. O2 saturation: 100%. Roberson-Carter pain scale: 10. --0134 Manuel Bejarano R.N. HYDROCORTISONE 100 mg IVP. . --0134 Manuel Bejarano R.N. (DESMOPRESSIN 1 mcg SC left abdomen.). --013 Manuel Bejarano R.N. (Pediatric resident at bedside. Family insisting that pt be transported to another facility. Expressing frustration with how long care is taking.). --0137 Manuel Bejarano R.N. (IVF scanned to pharm (3% NS)). --0203 Manuel Bejarano R.N. BP: 113 / 61. HR: 43. RR: 14. O2 saturation: 99% room air. The patient is resting quietly. --0232 Manuel Bejarano R.N. BP: 97 / 56. HR: 44. RR: 14. O2 saturation: 99% room air. --0329 Manuel Bejarano R.N. late entry -. (When this RN assumed care of the pt at approximately 0130, pt was on cardiac, spo2, and NIBP monitoring, and the side rails of the bed were raised and the bed was locked and in the lowest position.). --0330 Manuel Bejarano R.N.. IV / I&O Flowsheet 2252 late entry -. IV Site #1. IV access: left hand. IV started in ED with 20g angiocath using aseptic technique; one attempt. Saline lock placed; (iv started and blood drawn by delivery man.). --0033 Bryant Baker R.N. IV Site #1. IV fluids started. IV bag #1; 300 mL bolus 3% NaClat 100 mL/hr. --0221 Manuel Bejarano R.N.. DISPOSITION / DISCHARGE (Transported to on special education itinerant teacher by this RN and turned over to care of M3 nursing staff.). --0453 Manuel Bejarano R.N.. Clara Chung R.N., R.N. Locked/Released at 02/09/2008 7:29 by Manuel Bejarano R.N. documented in this encounter Plan of Treatment Upcoming Encounters Date Type Department Care Team (Late st Contact Info) Description 09/09/2024 10:20 EST Office Visit [facility] End[facility] - [address] [address] Day Littlejohn MD PhD [address] [place] [address] [address] [place] [address] documented as of this encounter Visit Diagnoses Not on filedocumented in this encounter Care Teams [employer] Relationship Specialty Start Date End Date Yan Demarco MD [address] [place] [phone] PCP - General 08/22/09 02/20/10 Corin Skinner MD [address] [place] [phone] PCP - General 10/24/08 08/21/09 documented as of this encounter
--- OUTSIDE RECORDS SUMMARY | 2024-03-05 15:50 | XMS_ITS | Encounter Summary ---
Author Organization [facility] Address [address] [place] [address] Care Team Providers Care Entry Examiner Name Role Phone Unavailable Primary Care Provider Unavailabl e Encounter Details Date Type Department Care Team (Late st Contact Info) Description 11/27/2007 19:42 EDT - 11/30/2007 11:59 EDT Hospital Encounter [facility] [address], [place] [address] Florida Enriquez MD MSc [address] [place] [address] Neo Benitez MD [address] [place] [phone] Discharge Disposition: Home or Self Care Social History Tobacco Use Types Packs/Day Years Used Date Smoking Tobacco: Never Assessed Sex and Gender Information Value Date Recorded Sex Assigned at Not on file Gender Identity Not on file Sexual Orientation Not on file documented as of this encounter Discharge Disposition Disposition Code Departure Means Destination Home or Self Care documented in this encounter Procedure Notes * Jose Lopez MD - 11/27/2007 0000 EDT NEUROPHYSIOLOGY LABORATORY ELECTROENCEPHALOGRAM REPORT SERVICE DATE: 11/27/2007 STUDY NUMBER: Inpatient EEG [id number] 2007 REFERRING PROVIDER: Yossi Garcia MD,PhD CLINICAL HISTORY Patient with a previous craniopharyngioma and developmental delay and blindness associated with thecraniopharyngioma surgery. The patient today had four episodes of upper extremity jerking with the arms drawn up toward the chest. None of these events occurred during the EEG. MEDICATIONS Zoloft. TECHNICAL DESCRIPTION The scar is noted across the frontal region behind the hairline. standard digital EEG is performed utilizing the International 10-20 system of electrode placement and a CPZ reference electrode, with anterotemporal electrodes for enhanced coverage in those areas. The study is performed under the supervision of a registered EEG Technologists. No pain assessment for this procedure is necessary. The study is 22 minutes in duration. FINDINGS When the eyes are opened, there is intermittent semirhythmic delta activity in the temporal region on the right side and also variably spreading into frontal areas more on the right than the left andinto the central region. This is 1.5 to 2 Hz and about 60 microvolts. Sparse 6-7 cycle per second activity is seen in the left parietooccipital region at 20 microvolts. Occasional 4-6 cycle per second activity is seen in the right temporal region at 30 microvolts. When the eyes are held closed, there is no change in the electroencephalogram. In summary, this patients electroencephalogram shows slowing more prominent in temporal regionsand in the right hemisphere in general, less on the left. No normal background rhythms are encountered and no epileptiform activity is seen during this study. Signed by Jose Lopez MD,PHD 12/02/2007 08:52 Jose Lopez MD,PHD ABPN Certified in Neurology [place] Board Clinical Neurophysiology - Jose Lopez MD,PHD P - LBR Job ID: [id number] Document ID: [id number] cc: Yossi Garcia MD,PhD Jose Lopez MD,PHD P - lbr Job ID: [id number] Document ID: [id number] cc: Yossi Garcia MD,PhD documented in this encounter Consult Notes * Diana Harris MD - 11/29/2007 0000 EDT INPATIENT PSYCHIATRIC CONSULTATION ADMIT DATE: 11/27/2007 CONSULT DATE: 11/29/2007 A consultation was requested by Dr. [place] Enriquez to help assist with the patients psychopharmacology and the balance and need for sedating medications and to question whether we could adjust them, as he is oversedated at times and then needing to be sedated to help with sleep. 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 Subsequent to the surgery, he had intracranial bleeding, bilateral thalamic infarcts and neurological impairment. He was admitted to [facility] on November 27, 2007, from an outside hospital with mental status changes and hyponatremia, which has since been corrected. Following his surgery, he has been left with cognitive deficits and has spent considerable time in rehabilitation and is followed by Dr. Feliciano at [facility] for behavioral problems. After talking with his parents, they are concerned thathe is overly sedated during the daytime and yet does not sleep at night on a regular basis. PAST MEDICAL HISTORY Since his resection for craniopharyngioma, he has diabetes insipidus, neurologic blindness, partialparalysis, panhypopituitarism, brain injury and PICA. SOCIAL HISTORY/FAMILY HISTORY Miguel Angel lives both at home with his stepmother and father and with his stepmothersister, who both alternate taking care of him. He attends [employer] in [place], [place]. His biological mother two years ago from complications related to her type 1 diabetes mellitus. Per family, he was doing well last summer, able to haul wood in the summertime with family but has also had another loss of his paternal grandfather who this July with the burial November 13, 2007. Stepmother and father did report that he did have behavioral problems before the surgery,but was not treated for anything like ADHD. He is also on a schedule where, due to his specialized needs, he has to get up at 4 in the morning to get prepared to go to [employer] his school for the day, and so goes to bed at 6 oand gets up at 4. He is given his medications at 4 oin the afternoon to help him sleep. Only reported family psychiatric history of his biological mother was that both her ex- and his thought that she did have psychiatric problems, was not treated for them but used to be manipulative with children, including Miguel Angel, and threatened that if they would not stay with her over the weekend that she would not take her insulin injections and that would cause her . This is from his father and stepmother. MEDICATIONS 1. Desmopressin 0.15 t.i.d. 2. Docusate 100 b.i.d. 3. Hydrocortisone 30 mg in the morning, 15 mg in the afternoon and 15 mg at night. 4. Cipro 500 mg b.i.d. 5. Calcium carbonate with vitamin D 2 tablets daily. 6. Levothyroxine 150 mcg daily. 7. Niacin 100 mg t.i.d. 8. Seroquel 600 mg p.o. 4 p.m. 7. Temazepam 30 mg p.o. every 4 p.m. 8. Sertraline 200 mg p.o. every 4 p.m. REVIEW OF SYSTEMS Miguel Angel said he was doing cool. Other than that, review of systems was limited due to his cognitivedeficits. 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 Anchor Point II: Deferred. Anchor Point III: Panhypopituitarism status post craniopharyngioma resection, diabetes insipidus. MENTAL STATUS EXAMINATION He is a 17-year-old young man partially clothed, lying in bed with his Attends on. He is staring atthe ceiling, verbally trying to respond. Holds out his hand to shake at the end of the interview. He is yawning with psychomotor retardation. His mood is neutral, affect is limited. Range, thought process is impaired and insight is limited. ASSESSMENT A young man with a brain injury secondary to a tumor resection and panhypopituitary condition who has behavioral issues, for which he takes significant amounts of psychotropic medications. We suggestdecreasing the load of sedating medications to enhance daytime functioning and would do this gradual ly. Address the sleep medication temazepam first; temazepam has a long tail onit and can lead to excessive daytime sedation. RECOMMENDATIONS 1. Decrease temazepam to 15 mg at bedtime. 2. Psychiatry consult service will follow patient. 3. Discussed at length with stepmother and father the need to change medications slowly and to see how they affect him and will try to collaborate with Dr. Feliciano for further changes. saw and examined the patient with the resident/fellow. I agree with the findings and plan of care documented in the resident's/fellow's note. Signed by Jose Manuel Love MD 12/21/2007 09:34 Reviewed by Diana Harris MD 12/02/2007 12:55 Diana Harris MD Jose Manuel Love MD D: - Diana Harris MD A - SS Job ID: [id number] Document ID: [id number] cc: MD Yan Cleveland MD Alisson L Richards, MD Jillian Sullivan, MD Jillian Sullivan, MD documented in this encounter Plan of Treatment Upcoming Encounters Date Type Department Care Team (Late st Contact Info) Description 09/09/2024 10:20 EST Office Visit [facility] Endocrinology - [address] [address] Day Littlejohn MD PhD [address] [place] [phone] documented as of this encounter Procedures Procedure Name Priority Date/Time Associated Diagnosis Comments SODIUM Routine 11/30/2007 9:10 EDT GLUCOSE, GLUCOMETER Routine 11/30/2007 6 :14 EDT SODIUM Routine 11/30/2007 6:00 EDT SODIUM Routine 11/29/2007 18:00 EDT GLUCOSE, SERUM Routine 11/29/2007 18:00 EDT SODIUM Routine 11/29/2007 8:36 EDT GLUCOSE, SERUM Routine 11/29/2007 8:36 EDT SODIUM Routine 11/29/2007 3:22 EDT GLUCOSE, SERUM Routine 11/29/2007 3:22 EDT SODIUM Routine 11/29/2007 0:23 EDT GLUCOSE, SERUM Routine 11/29/2007 0:23 EDT SODIUM Routine 11/28/2007 16:00 EDT TESTS ADDED BY PHONE Routine 11/28/2007 12:00 EDT COMPLETE BLOOD COUNT AND DIFFERENTIAL Routine 11/28/2007 12:00 EDT PHOSPHORUS Routine 11/28/2007 12:00 EDT MAGNESIUM Routine 11/28/2007 12:00 EDT GLUCOSE, SERUM Routine 11/28/2007 12:00 EDT CALCIUM Routine 11/28/2007 12:00 EDT ELECTROLYTES Routine 11/28/2007 12:00 EDT SODIUM Routine 11/28/2007 8:15 EDT SODIUM Routine 11/28/2007 4:15 EDT GLUCOSE, SERUM Routine 11/28/2007 4:[address] HEAD WO CONTRAST 11/28/2007 2 :42 EDT ELECTROLYTES Routine 11/28/2007 0:10 EDT GLUCOSE, GLUCOMETER Routine 11/27/2007 2 3:47 EDT GLUCOSE, GLUCOMETER Routine 11/27/2007 1 8:32 EDT documented in this encounter Results * SODIUM (11/30/2007 9:10 EDT) Sodium 142 136 - 145 mEq/L [facility] 11/30/2007 9:10 EDT 11/30/2007 9:30 EDT Florida Enriquez MD MSc CHEMISTRY & BLOOD GAS ORDERABLES Performing Organization Address City/[facility] Co de Phone Number [facility] [address] [place] [address] * GLUCOSE, GLUCOMETER (11/30/2007 6:14 EDT) Glucose, Fingerstick 70 70 - 100 mg/dl [facility] Flight Dispatcher ID [id number] Test Performed by Nursing Services [facility] 11/30/2007 6:14 EDT 11/30/2007 23:34 EDT Florida Enriquez MD MSc CHEMISTRY & BLOOD GAS ORDERABLES Performing Organization Address [facility] de Phone Number [facility] [address] [place] [address] * SODIUM (11/30/2007 6:00 EDT) Sodium 139 136 - 145 mEq/L [facility] 11/30/2007 6:00 EDT 11/30/2007 7:15 EDT Florida Enriquez MD MSc CHEMISTRY & BLOOD GAS ORDERABLES Performing Organization Address [facility] Co de Phone Number [facility] [address] [place] [address] * GLUCOSE, SERUM (11/29/2007 18:00 EDT) Glucose, Serum 78 70 - 100 mg/dl [facility] 11/29/2007 18:0 0 EDT 11/29/2007 19:03 EDT Florida Enriquez MD MSc CHEMISTRY & BLOOD GAS ORDERABLES Performing Organization Address City/[facility]/ZIP Co de Phone Number [facility] [address] [place] [address] * SODIUM (11/29/2007 18:00 EDT) Sodium 139 136 - 145 mEq/L [facility] 11/29/2007 18:0 0 EDT 11/29/2007 19:03 EDT Florida Enriquez MD MSc CHEMISTRY & BLOOD GAS ORDERABLES Performing Organization Address [facility] Co de Phone Number [facility] [address] [place] [address] * GLUCOSE, SERUM (11/29/2007 8:36 EDT) Glucose, Serum 78 70 - 100 mg/dl [facility] 11/29/2007 8:36 EDT 11/29/2007 8:42 EDT Florida Enriquez MD MSc CHEMISTRY & BLOOD GAS ORDERABLES Performing Organization Address [facility] Co de Phone Number [facility] [address] [place] [address] * SODIUM (11/29/2007 8:36 EDT) Sodium 144 136 - 145 mEq/L [facility] 11/29/2007 8:36 EDT 11/29/2007 8:42 EDT Florida Enriquez MD MSc CHEMISTRY & BLOOD GAS ORDERABLES Performing Organization Address City/[facility]/ZIP Co de Phone Number [facility] [address] [place] [address] * GLUCOSE, SERUM (11/29/2007 3:22 EDT) Glucose, Serum 87 70 - 100 mg/dl [facility] 11/29/2007 3:22 EDT 11/29/2007 3:27 EDT Florida Enriquez MD MSc CHEMISTRY & BLOOD GAS ORDERABLES [facility] [address] [place] [address] * SODIUM (11/29/2007 3:22 EDT) Sodium 141 136 - 145 mEq/L [facility] 11/29/2007 3:22 EDT 11/29/2007 3:27 EDT Florida Enriquez MD MSc CHEMISTRY & BLOOD GAS ORDERABLES Performing Organization Address [facility] Co de Phone Number [facility] [address] [place] [address] * (ABNORMAL) GLUCOSE, SERUM (11/29/2007 0:23 EDT) Glucose, Serum 101(H) 70 - 100 mg/dl [facility] 11/29/2007 0:23 EDT 11/29/2007 0:23 EDT Florida Enriquez MD MSc CHEMISTRY & BLOOD GAS ORDERABLES Performing Organization Address [facility] de Phone Number [facility] [address] [place] [address] * SODIUM (11/29/2007 0:23 EDT) Sodium 142 136 - 145 mEq/L [facility] 11/29/2007 0:23 EDT 11/29/2007 0:23 EDT Florida Enriquez MD MSc CHEMISTRY & BLOOD GAS ORDERABLES Performing Organization Address City/[facility] Co de Phone Number [facility] [address] [place] [address] * SODIUM (11/28/2007 16:00 EDT) Sodium 143 136 - 145 mEq/L [facility] 11/28/2007 16:0 0 EDT 11/28/2007 21:30 EDT Florida Enriquez MD MSc CHEMISTRY & BLOOD GAS ORDERABLES Performing Organization Address [facility] Co de Phone Number [facility] [address] [place] [address] * GLUCOSE, SERUM (11/28/2007 12:00 EDT) Glucose, Serum 73 70 - 100 mg/dl [facility] 11/28/2007 12:0 0 EDT 11/28/2007 12:12 EDT Florida Enriquez MD MSc CHEMISTRY & BLOOD GAS ORDERABLES Performing Organization Address [facility] Phone Number [facility] [address] [place] [address] * PHOSPHORUS (11/28/2007 12:00 EDT) Phosphorus 4.6 2.7 - 4.7 mg/dl [facility] 11/28/2007 12:0 0 EDT 11/28/2007 12:12 EDT Florida Enriquez MD MSc CHEMISTRY & BLOOD GAS ORDERABLES Performing Organization Address [facility] Phone Number [facility] [address] [place] [address] * MAGNESIUM (11/28/2007 12:00 EDT) Magnesium 1.9 1.7 - 2.8 mg/dl [facility] 11/28/2007 12:0 0 EDT 11/28/2007 12:12 EDT Florida Enriquez MD MSc CHEMISTRY & BLOOD GAS ORDERABLES Performing Organization Address [facility] de Phone Number [facility] [address] [place] [address] * ELECTROLYTES (11/28/2007 12:00 EDT) Sodium 137 136 - 145 mEq/L [facility] Potassium 4.2 3.5 - 5.0 mEq/L [facility] Chloride 99 96 - 110 mEq/L [facility] CO2 26 24 - 32 mEq/L [facility] 11/28/2007 12:0 0 EDT 11/28/2007 12:12 EDT Florida Enriquez MD MSc CHEMISTRY & BLOOD GAS ORDERABLES Performing Organization Address [facility] de Phone Number [facility] [address] [place] [address] * (ABNORMAL) HEMAGRAM AND DIFFERENTIAL (11/28/2007 12:00 EDT) WBC 3.60(L) 4.6 - 11.2 K/cmm [facility] RBC 5.56(H) 4.50 - 5.30 M/cmm [facility] Hemoglobin 14.2 13.0 - 16.0 gm/dl [facility] HCT 41.6 37.0 - 49.0 % [facility] MCV 75(L) 78 - 98 fl [facility] MCH 25.6 pg [facility] MCHC 34.2 gm/dl [facility] PLT 216 156 - 312 K/cmm [facility] RDW-CV 18.1 % [facility] Neutrophils 64.0 % [facility] Lymphocytes 26.0 % [facility] Monocytes 10.0 % [facility] ABS Neutrophils 2.30 K/cmm [facility] ABS Lymphs 0.94 K/cmm [facility] ABS Monocytes 0.36 K/cmm [facility] RBC Morphology 1+ Anisocytosis 1+ Microcytes [facility] Type of Diff: Manual [facility] 11/28/2007 12:0 0 EDT 11/28/2007 12:12 EDT Florida Enriquez MD MSc PACKAGES & DNA PROBE ORDERABLES Performing Organization Address [facility] Co de Phone Number [facility] [address] [place] [address] * CALCIUM (11/28/2007 12:00 EDT) Calcium 9.4 8.5 - 10.5 mg/dl [facility] Calculated Calcium 9.1 8.5 - 10.5 mg/dl [facility] 11/28/2007 12:0 0 EDT 11/28/2007 12:12 EDT Florida Enriquez MD MSc CHEMISTRY & BLOOD GAS ORDERABLES Performing Organization Address City/[facility] Co de Phone Number [facility] [address] [place] [address] * TESTS ADDED BY PHONE (11/28/2007 12:00 EDT) Tests to be added NA [facility] Who Called [facility] FOR DR. SHAKIR [facility] Location Code B5 [facility] 11/28/2007 12:0 0 EDT 11/28/2007 12:12 EDT Florida Enriquez MD MSc CHEMISTRY & BLOOD GAS ORDERABLES Performing Organization Address [facility] de Phone Number [facility] [address] [place] [address] * SODIUM (11/28/2007 8:15 EDT) Sodium 138 136 - 145 mEq/L [facility] 11/28/2007 8:15 EDT 11/28/2007 8:52 EDT Florida Enriquez MD MSc CHEMISTRY & BLOOD GAS ORDERABLES Performing Organization Address [facility] de Phone Number [facility] [address] [place] [address] * GLUCOSE, SERUM (11/28/2007 4:15 EDT) Glucose, Serum 79 70 - 100 mg/dl [facility] 11/28/2007 4:15 EDT 11/28/2007 4:22 EDT Florida Enriquez MD, MSc CHEMISTRY & BLOOD GAS ORDERABLES Performing Organization Address [facility] Co de Phone Number [facility] [address] [place] [address] * (ABNORMAL) SODIUM (11/28/2007 4:15 EDT) Sodium 135(L) 136 - 145 mEq/L [facility] 11/28/2007 4:15 EDT 11/28/2007 4:22 EDT Florida Enriquez MD, MSc CHEMISTRY & BLOOD GAS ORDERABLES Performing Organization Address [facility] Co de Phone Number [facility] [address] [place] [address] * CT HEAD WO CONTRAST (11/28/2007 2:42 EDT) Anatomical Region Laterality Modality Other 11/28/2007 2:42 EDT Narrative 12/18/2008 14:32 EDT ms change in 17yo m w/ h/o craniopharyngioma w/ known residual tumor. eval for tumor growth in pituitary fossa area. CT Brain History: Altered mental status, post remote craniopharyngioma resection Comparison: November 29, 2004 Technique: Axial noncontrast images were obtained through the brain Findings: In the interval, there has been progression in the encephalomalacia involving the right frontal lobe, ??right insula and right temporal pole. There is ex vacuo dilatation of the of the right frontal and temporal horns. The enlargement of the sella is unchanged. No solid mass lesion is identified. The surgical clip is in unchanged position. There is no evidence of acute intracranial hemorrhage or large vascular territory ischemia. Remote bilateral lacunar infarcts within the thalami persist. There is no midline shift. There is patchy mucosal thickening within the paranasal sinuses without fluid level. There has been a right ethmoidectomy. Conclusion: No acute findings Interval increase in prominence of the right frontal, temporal and insular encephalomalacia. No evidence of recurrent solid tumor. Postoperative changes as described. Procedure Note Louis Crain DO - 12/18/2008 ms change in 17yo m w/ h/o craniopharyngioma w/ known residual tumor. eval for tumor growth in pituitary fossa area. CT Brain History: Altered mental status, post remote craniopharyngioma resection Comparison: November 29, 2004 Technique: Axial noncontrast images were obtained through the brain Findings: In the interval, there has been progression in the encephalomalacia involving the right frontal lobe, right insula and right temporal pole. There is ex vacuo dilatation of the of the right frontal and temporal horns. The enlargement of the sella is unchanged. No solid mass lesion is identified. The surgical clip is in unchanged position. There is no evidence of acute intracranial hemorrhage or large vascular territory ischemia. Remote bilateral lacunar infarcts within the thalami persist. There is no midline shift. There is patchy mucosal thickening within the paranasal sinuses without fluid level. There has been a right ethmoidectomy. Conclusion: No acute findings Interval increase in prominence of the right frontal, temporal and insular encephalomalacia. No evidence of recurrent solid tumor. Postoperative changes as described. Neo Benitez MD IMG CT ORDERABLES * ELECTROLYTES (11/28/2007 0:10 EDT) Sodium 136 136 - 145 mEq/L [facility] Potassium 4.5 3.5 - 5.0 mEq/L [facility] Chloride 101 96 - 110 mEq/L [facility] CO2 25 24 - 32 mEq/L [facility] 11/28/2007 0:10 EDT 11/28/2007 0:13 EDT Florida Enriquez MD MSc CHEMISTRY & BLOOD GAS ORDERABLES [facility] [address] [place] [address] * GLUCOSE, GLUCOMETER (11/27/2007 23:47 EDT) Glucose, Fingerstick 80 70 - 100 mg/dl [facility] Flight Dispatcher ID [id number] Test Performed by Nursing Services [facility] 11/27/2007 23:4 7 EDT 11/27/2007 23:48 EDT Florida Enriquez MD, MSc CHEMISTRY & BLOOD GAS ORDERABLES Performing Organization Address [facility] Co de Phone Number [facility] [address] [place] [address] * (ABNORMAL) GLUCOSE, GLUCOMETER (11/27/2007 18:32 EDT) [facility] Signature Glucose, Fingerstick 52(L) 70 - 100 mg/dl [facility] Flight Dispatcher ID [id number] Test Performed by Nursing Services [facility] 11/27/2007 18:3 2 EDT 11/27/2007 23:48 EDT Florida Enriquez MD, MSc CHEMISTRY & BLOOD GAS ORDERABLES Performing Organization Address [facility] Co de Phone Number [facility] [address] [place] [address] documented in this encounter Visit Diagnoses Not on filedocumented in this encounter
--- OUTSIDE RECORDS SUMMARY | 2024-03-05 15:51 | XMS_ITS | Encounter Summary ---
Author Organization [facility] Address [address] [place] [address] Care Team Providers Care Retail Client Solutions Consultant Name Role Phone Unavailable Primary Care Provider Unavailabl e Encounter Details Date Type Department Care Team (Late st Contact Info) Description 11/28/2007 8:34 EDT - 11/28/2007 11:59 EDT Hospital Encounter [facility] [address] [place] [address] Desean Huerta MD [address] [facility]. [address] [place] [phone] Discharge Disposition: Auto Discharge Social History Tobacco [...] Info) Description 09/09/2024 10:20 EST Office Visit [facility] - [facility] [address] [place] [address] Day Littlejohn MD PhD [address] [place] [address] [address] [place] [address] documented as of this encounter Procedures Procedure Name Priority Date/Time Associated Diagnosis Comments COMPLETE BLOOD COUNT AND DIFFERENTIAL Routine 04/11/2008 8:55 EDT BUN Routine 04/11/2008 8:55 EDT TSH Routine 04/11/2008 8:55 EDT T4 FREE Routine 04/11/2008 8:55 EDT GLUCOSE, SERUM Routine 04/11/2008 8:55 EDT CREATININE Routine 04/11/2008 8:55 EDT ELECTROLYTES Routine 04/11/2008 8:55 EDT PORTABLE CHEST 1 VIEW 02/12/2008 14:29 EDT GLUCOSE, GLUCOMETER Routine 02/08/2008 2 3:38 EDT COMPLETE BLOOD COUNT AND DIFFERENTIAL Routine 02/08/2008 22:45 EDT PHENYTOIN Routine 02/08/2008 22:45 EDT BUN Routine 02/08/2008 22:45 EDT PHOSPHORUS Routine 02/08/2008 22:45 EDT MAGNESIUM Routine 02/08/2008 22:45 EDT GLUCOSE, SERUM Routine 02/08/2008 22:45 EDT CREATININE Routine 02/08/2008 22:45 EDT CORTISOL Routine 02/08/2008 22:45 EDT CALCIUM Routine 02/08/2008 22:45 EDT ELECTROLYTES Routine 02/08/2008 22:45 EDT GLUCOSE, PLASMA Routine 02/08/2008 17:12 EDT COMPLETE BLOOD COUNT Routine 02/08/2008 17:12 EDT PHENYTOIN Routine 02/08/2008 17:12 EDT CREATININE Routine 02/08/2008 17:12 EDT HEPATIC FUNCTION PANEL (ALB,ALK PHOS,ALT,AST,DBIL,TOT MORGAN,TOT PROT) Routine 02/08/2008 17:12 EDT ELECTROLYTES Routine 02/08/2008 17:12 EDT MR HEAD W/WO CONTRAST 11/29/2007 22:06 EDT documented in this encounter Results * (ABNORMAL) HEMAGRAM AND DIFFERENTIAL (04/11/2008 8:55 EDT) WBC 2.30(L) 4.6 - 11.2 K/cmm [facility] RBC 4.57 4.50 - 5.30 M/cmm [facility] Hemoglobin 11.9(L) 13.0 - 16.0 gm/dl [facility] HCT 35.1(L) 37.0 - 49.0 % [facility] MCV 77(L) 78 - 98 fl [facility] MCH 26.0 pg [facility] MCHC 34.0 gm/dl [facility] PLT 119(L) 156 - 312 K/cmm [facility] RDW-CV 16.4 % [facility] Neutrophils 67.8 % [facility] Lymphocytes 26.8 % [facility] Monocytes 4.8 % [facility] Eosinophils 0.3 % [facility] Basophils 0.3 % [facility] ABS Neutrophils 1.56 K/cmm [facility] ABS Lymphs 0.62 K/cmm [facility] ABS Monocytes 0.11 K/cmm [facility] ABS Eosinophils 0.01 K/cmm [facility] ABS Basophils 0.01 K/cmm [facility] Type of Diff: Automated [facility] 04/11/2008 8:55 EDT 04/11/2008 9:09 EDT Default Emergency MD PACKAGES & DNA PROB E ORDERABLES Performing Organization Address [facility] Co de Phone Number [facility] [address] [place] [address] * (ABNORMAL) TSH (04/11/2008 8:55 EDT) TSH <0.02(L) 0.35 - 5.00 uIU/mL [facility] 04/11/2008 8:55 EDT 04/11/2008 9:09 EDT Default Emergency MD CHEMISTRY & BLOOD G ORDERABLES Performing Organization Address [facility] de Phone Number [facility] [address] [place] [address] * (ABNORMAL) T4 FREE (04/11/2008 8:55 EDT) Free T4 1.7(H) 0.8 - 1.5 ng/dL [facility] 04/11/2008 8:55 EDT 04/11/2008 9:09 EDT Default Emergency MD CHEMISTRY & BLOOD G ORDERABLES Performing Organization Address [facility] Phone Number [facility] [address] [place] [address] * GLUCOSE, SERUM (04/11/2008 8:55 EDT) Glucose, Serum 79 70 - 100 mg/dl [facility] 04/11/2008 8:55 EDT 04/11/2008 9:09 EDT Default Emergency MD CHEMISTRY & BLOOD G ORDERABLES Performing Organization Address [facility] de Phone Number [facility] [address] [place] [address] * CREATININE (04/11/2008 8:55 EDT) Creatinine 0.60 0.6 - 1.2 mg/dl [facility] GFR, Calculated Age <18 ml/min/1.7 3m2 [facility] 04/11/2008 8:55 EDT 04/11/2008 9:09 EDT Default Emergency MD CHEMISTRY & BLOOD G ORDERABLES Performing Organization Address [facility] Phone Number [facility] [address] [place] [address] * BUN (04/11/2008 8:55 EDT) BUN 14 8 - 21 mg/dl [facility] 04/11/2008 8:55 EDT 04/11/2008 9:09 EDT Default Emergency MD CHEMISTRY & BLOOD G ORDERABLES Performing Organization Address [facility] Phone Number [facility] [address] [place] [address] * (ABNORMAL) ELECTROLYTES (04/11/2008 8:55 EDT) Sodium 131(L) 136 - 145 mEq/L [facility] Potassium 4.4 3.5 - 5.0 mEq/L [facility] Chloride 95(L) 96 - 110 mEq/L [facility] CO2 25 24 - 32 mEq/L [facility] 04/11/2008 8:55 EDT 04/11/2008 9:09 EDT Default Emergency MD CHEMISTRY & BLOOD G ORDERABLES Performing Organization Address 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 EKG electrodes are on the chest. The lungs are clear. In the previous studies no significant interval changes have occurred since the January 2005 exam. 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 EKG electrodes are on the chest. The lungs are clear. In the previous studies no significant interval changes have occurred since the January 2005 exam. Jodi Parr MD IMG DIAGNOSTIC IMAGI NG ORDERABLES * GLUCOSE, GLUCOMETER (02/08/2008 23:38 EDT) Glucose, Fingerstick 88 70 - 100 mg/dl [facility] [place] [id number] Test Performed by Nursing Services [facility] 02/08/2008 23:3 8 EDT 02/09/2008 6:19 EDT Provider Unknown CHEMISTRY & BLOOD GA S ORDERABLES Performing Organization Address City/[facility] Co de Phone Number [facility] [address] [place] [address] * PHOSPHORUS (02/08/2008 22:45 EDT) Phosphorus 4.0 2.7 - 4.7 mg/dl [facility] 02/08/2008 22:4 5 EDT 02/08/2008 22:58 EDT Default Emergency CHEMISTRY & BLOOD G ORDERABLES Performing Organization Address City/[facility] Co de Phone Number [facility] [address] [place] [address] * (ABNORMAL) MAGNESIUM (02/08/2008 22:45 EDT) Magnesium 1.4(L) 1.7 - 2.8 mg/dl [facility] 02/08/2008 22:4 5 EDT 02/08/2008 22:58 EDT Default Emergency MD CHEMISTRY & BLOOD G ORDERABLES Performing Organization Address [facility] de Phone Number [facility] [address] [place] [address] * CALCIUM (02/08/2008 22:45 EDT) Calcium 8.6 8.5 - 10.5 mg/dl [facility] Calculated Calcium 9.3 8.5 - 10.5 mg/dl [facility] 02/08/2008 22:4 5 EDT 02/08/2008 22:58 EDT Default Emergency MD CHEMISTRY & BLOOD G ORDERABLES Performing Organization Address [facility] de Phone Number [facility] [address] [place] [address] * CORTISOL (02/08/2008 22:45 EDT) Cortisol 9 ug/dl [facility] Comment: 7-9a.m.=4.3-22.4 3-5p.m.=3.1-16.7 02/08/2008 22:4 5 EDT 02/08/2008 22:58 EDT Default Emergency MD CHEMISTRY & BLOOD G ORDERABLES Performing Organization Address [facility] de Phone Number [facility] [address] [place] [address] * GLUCOSE, SERUM (02/08/2008 22:45 EDT) Glucose, Serum 87 70 - 100 mg/dl [facility] 02/08/2008 22:4 5 EDT 02/08/2008 22:58 EDT Default Emergency MD CHEMISTRY & BLOOD G ORDERABLES Performing Organization Address City/[facility]/ZIP Co de Phone Number [facility] [address] [place] [address] * (ABNORMAL) BUN (02/08/2008 22:45 EDT) BUN 6(L) 8 - 21 mg/dl [facility] 02/08/2008 22:4 5 EDT 02/08/2008 22:58 EDT Default Emergency MD CHEMISTRY & BLOOD G ORDERABLES Performing Organization Address [facility] Co de Phone Number [facility] [address] [place] [address] * (ABNORMAL) ELECTROLYTES (02/08/2008 22:45 EDT) Sodium 117(LL) 136 - 145 mEq/L [facility] Comment:Sample retested, res ult confirmed Potassium 3.8 3.5 - 5.0 mEq/L [facility] Chloride 81(L) 96 - 110 mEq/L [facility] CO2 25 24 - 32 mEq/L [facility] 02/08/2008 22:4 5 EDT 02/08/2008 22:58 EDT Default Emergency CHEMISTRY & BLOOD G ORDERABLES Performing Organization Address [facility] Co de Phone Number [facility] [address] [place] [address] * (ABNORMAL) CREATININE (02/08/2008 22:45 EDT) Creatinine 0.40(L) 0.6 - 1.2 mg/dl [facility] GFR, Calculated Age <18 ml/min/1.7 3m2 [facility] 02/08/2008 22:4 5 EDT 02/08/2008 22:58 EDT Default Emergency MD CHEMISTRY & BLOOD G ORDERABLES Performing Organization Address City/[facility] Co de Phone Number [facility] [address] [place] [address] * PHENYTOIN (02/08/2008 22:45 EDT) Phenytoin 12.9 ug/ml [facility] Calculated Phenytoin 13.4 ug/ml [facility] Comment: Calculated phenytoin is adjusted for albumin level. 02/08/2008 22:4 5 EDT 02/08/2008 22:58 EDT Default Emergency MD CHEMISTRY & BLOOD G ORDERABLES [facility] [address] [place] [address] * (ABNORMAL) HEMAGRAM AND DIFFERENTIAL (02/08/2008 22:45 EDT) Pathologist [facility] WBC 3.05(L) 4.6 - 11.2 K/cmm [facility] RBC 4.92 4.50 - 5.30 M/cmm [facility] Hemoglobin 12.8(L) 13.0 - 16.0 gm/dl [facility] HCT 36.9(L) 37.0 - 49.0 % [facility] MCV 75(L) 78 - 98 fl [facility] MCH 26.0 pg [facility] MCHC 34.7 gm/dl [facility] PLT 129(L) 156 - 312 K/cmm [facility] RDW-CV 15.6 % [facility] Neutrophils 62.8 % [facility] Lymphocytes 27.5 % [facility] Monocytes 8.7 % [facility] Eosinophils 0.7 % [facility] Basophils 0.3 % [facility] ABS Neutrophils 1.91 K/cmm [facility] ABS Lymphs 0.84 K/cmm [facility] ABS Monocytes 0.27 K/cmm [facility] ABS Eosinophils 0.02 K/cmm [facility] ABS Basophils 0.01 K/cmm [facility] Type of Diff: Automated [facility] 02/08/2008 22:4 5 EDT 02/08/2008 22:58 EDT Default Emergency MD PACKAGES & DNA PROB E ORDERABLES Performing Organization Address [facility] Co de Phone Number [facility] [address] [place] [address] * (ABNORMAL) GLUCOSE, PLASMA (02/08/2008 17:12 EDT) Glucose, Plasma 64(L) 70 - 100 mg/dl [facility] 02/08/2008 17:1 2 EDT 02/08/2008 17:14 EDT Rui Bazan MD CHEMISTRY & BLOOD GA S ORDERABLES Performing Organization Address [facility] Co de Phone Number [facility] [address] [place] [address] * (ABNORMAL) CREATININE (02/08/2008 17:12 EDT) Creatinine 0.57(L) 0.6 - 1.2 mg/dl [facility] GFR, Calculated Age <18 ml/min/1.7 3m2 [facility] 02/08/2008 17:1 2 EDT 02/08/2008 17:14 EDT Rui Bazan MD CHEMISTRY & BLOOD GA S ORDERABLES Performing Organization Address [facility] de Phone Number [facility] [address] [place] [address] * PHENYTOIN (02/08/2008 17:12 EDT) Phenytoin 11.3 ug/ml [facility] Calculated Phenytoin 9.9 ug/ml [facility] Comment: Calculated phenytoin is adjusted for albumin level. 02/08/2008 17:1 2 EDT 02/08/2008 17:14 EDT Rui Bazan MD CHEMISTRY & BLOOD GA S ORDERABLES Performing Organization Address [facility] Co de Phone Number [facility] [address] [place] [address] * (ABNORMAL) LIVER FUNCTION TESTS (02/08/2008 17:12 EDT) Albumin 5.2 3.0 - 5.5 g/dl [facility] Total Protein 8.1 6.3 - 8.6 g/dl [facility] Alkaline Phosphatase 135 65 - 260 U/L [facility] ALT 30 0 - 45 U/L [facility] AST 48(H) 15 - 46 U/L [facility] Unconjugated Bilirubin 0.5 0.1 - 1.1 mg/dl [facility] Conjugated Bilirubin 0.0 0.0 - 0.3 mg/dl [facility] Bilirubin, Total <0.5 0.0 - 1.4 mg/dl [facility] 02/08/2008 17:1 2 EDT 02/08/2008 17:14 EDT Rui Bazan MD CHEMISTRY & BLOOD GA S ORDERABLES Performing Organization Address [facility] de Phone Number [facility] [address] [place] [address] * (ABNORMAL) ELECTROLYTES (02/08/2008 17:12 EDT) Sodium 118(LL) 136 - 145 mEq/L [facility] Comment:Sample retested, res ult confirmed Potassium 4.6 3.5 - 5.0 mEq/L [facility] Chloride 78(L) 96 - 110 mEq/L [facility] CO2 28 24 - 32 mEq/L [facility] 02/08/2008 17:1 2 EDT 02/08/2008 17:14 EDT Rui Bazan MD CHEMISTRY & BLOOD GA S ORDERABLES Performing Organization Address [facility] Co de Phone Number [facility] [address] [place] [address] * (ABNORMAL) HEMAGRAM (02/08/2008 17:12 EDT) WBC 3.51(L) 4.6 - 11.2 K/cmm [facility] RBC 5.40(H) 4.50 - 5.30 M/cmm [facility] Hemoglobin 14.0 13.0 - 16.0 gm/dl [facility] HCT 41.2 37.0 - 49.0 % [facility] MCV 76(L) 78 - 98 fl [facility] MCH 25.9 pg [facility] MCHC 34.0 gm/dl [facility] PLT 158 156 - 312 K/cmm [facility] RDW-CV 15.8 % [facility] 02/08/2008 17:1 2 EDT 02/08/2008 17:14 EDT Rui Bazan MD HEMATOLOGY & PF4 ORD ERABLES [facility] [address] [place] [address] * MR HEAD W/WO CONTRAST (11/29/2007 22:06 EDT) Anatomical Region Laterality Modality Other 11/29/2007 22:0 6 EDT Narrative 12/18/2008 13:11 EDT 17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 admitted with hyponattremia, ? seizure activity. eval for central pontine myelinolysis. MR HEAD WWO/CONTRAST ??November 29, 2007 10:07:44 PM Impression: 1. ??Status post prior craniotomy for resection of craniopharyngioma. 2. Right frontal, left frontal and temporal encephalomalacia. 3. 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 4. 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 admitted with hyponatremia, ? seizure activity. eval for central pontine myelinolysis. Technique: MRI of the brain was performed with axial T2, axial T2 flair, axial gradient-echo, axial diffusion-weighted and axial sagittal and coronal T1 pre- and postgadolinium sequences. Comparison: CT of the head on 11/28/2007 and MRI of the brain on 05/15/2007 Findings: Craniotomy changes are present in the right frontal and temporal bones. Encephalomalacia is again identified in the inferior aspect of both frontal and right temporal lobes. 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 The third, fourth and lateral ventricles are dilated but unchanged as compared to the previous study. The sella turcica is enlarged in keeping with prior history of craniopharyngioma. Post contrast images again show residual ??tumor in the suprasellar region which measures about 7 x 8 x 9 mm in its largest diameter. The overall size of days tumor remains the same as compared to prior studies. Lacunar infarcts are again identified in the right and left thalamus. Susceptibility ??artifacts are partially obscuring the midbrain and azeb. Central pontine myelinolysis is not identified. 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 admitted with hyponattremia, ? seizure activity. eval for central pontine myelinolysis. MR HEAD WWO/CONTRAST November 29, 2007 10:07:44 PM Impression: 1. Status post prior craniotomy for resection of craniopharyngioma. 2. Right frontal, left frontal and temporal encephalomalacia. 3. 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 4. 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 admitted with hyponatremia, ? seizure activity. eval for central pontine myelinolysis. Technique: MRI of the brain was performed with axial T2, axial T2 flair, axial gradient-echo, axial diffusion-weighted and axial sagittal and coronal T1 pre- and postgadolinium sequences. Comparison: CT of the head on 11/28/2007 and MRI of the brain on 05/15/2007 Findings: Craniotomy changes are present in the right frontal and temporal bones. Encephalomalacia is again identified in the inferior aspect of both frontal and right temporal lobes. 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 The third, fourth and lateral ventricles are dilated but unchanged as compared to the previous study. The sella turcica is enlarged in keeping with prior history of craniopharyngioma. Post contrast images again show residual tumor in the suprasellar region which measures about 7 x 8 x 9 mm in its largest diameter. The overall size of days tumor remains the same as compared to prior studies. Lacunar infarcts are again identified in the right and left thalamus. Susceptibility artifacts are partially obscuring the midbrain and azeb. Central pontine myelinolysis is not identified. [place] Enriquez MD MSc IMG MRI OR DERABLES documented in this encounter Visit Diagnoses Not on filedocumented in this encounter
--- OUTSIDE RECORDS SUMMARY | 2024-03-05 15:51 | XMS_ITS | Encounter Summary ---
Author Organization [facility] Address [address] [place] [address] Care Team Providers Care Spa Manager/Esthetician Name Role Phone Unavailable Primary Care Provider Unavailabl e Encounter Details Date Type Department Care Team (Late st Contact Info) Description 08/19/2007 9:10 EST Hospital Encounter [facility] [address] [place] [address] [facility] [address] [place] [id number] Social History Tobacco Use Types Packs/Day Years [...] Description 09/09/2024 10:20 EST Office Visit [facility]ology - [facility] [address] [place] [address] Day Littlejohn MD PhD [address] [facility] [address] [place] [address] documented as of this encounter Visit Diagnoses Not on filedocumented in this encounter
--- OUTSIDE RECORDS SUMMARY | 2024-03-05 15:51 | XMS_ITS | Encounter Summary ---
Author Organization [facility] Address [address] [place] [address] Care Team Providers Care Clinical Assistant Name Role Phone Yan Demarco MD Primary Care Provider [phone] Corin Skinner MD Primary Care Provider [phone] Akil Serrano MD Primary Care Provider [phone] oYssi Torres MD Primary Care Provider [phone] Emilee Cody MD Primary Care Provider + Ren Vaz MD Primary Care Provider [phone] Encounter Details Date Type Department Care Team (Late st Contact Info) Description 08/13/2005 Before PRISM Converted Visit (Maple) [facility] Pediatric Neurology - [facility] [address], [place] [address] Hilton Álvarez MD [address] [place] [phone] Social History Tobacco Use Types Packs/Day Years Used Date Smoking Tobacco: Never Assessed Sex and Gender Information Value Date Recorded Sex Assigned at Not on file Gender Identity Not on file Sexual Orientation Not on file documented as of this encounter Progress Notes * Ricki, [employer] Medical Coding Instructor - 09/06/20092034 EST DIVISION OF NEUROSURGERY PROGRESS/FOLLOWUP NOTE August 13, 2005 Kris Drew MD [address] [place] [address] [place] [address] Drew: I had the pleasure of following up Miguel Angel Burgos in the pediatric neurosurgery clinic today with hismother, the executive secretary social welfare from your institution, and two of his care attendants at [facility]. Since I saw Miguel Angel last, he has made large gains. It is unclear how well he sees at this point. He may have some light perception or not but intermittently it seems like from [facility] he said to his caregivers that he does occasionally see some things. He is walking with some assistance at this point. He is feeding himself. He gets around in his wheelchair quite well. 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 Edwards today. 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 On physical exam, he has some pupillary asymmetry. His left pupil is 6 mm and reactive, and the right one is 3 mm and reactive. His bulk and tone is normal. He has good strength in all four extremities. His cranial wound is well healed. Plan: He continues to make slow neurologic improvement. I would like to follow him up in nine months with a repeat MRI with contrast. This will need to be done with sedation and we will make arrangements for this. Thank you very much for allowing us to participate in his care. Please call with any questions or concerns. Sincerely, Signed by Hilton Álvarez MD 08/20/2005 13:44 Carolina Tang ProfessorCentral Vermont Medical CenterDivision of Neurological SurgeryHilton Álvarez MD Hilton Álvarez MD Animal Laboratory Technician [facility] Division of Neurological Surgery - Hilton Álvarez MD P - bb Job ID: [id number] Document ID: [id number] cc: Kris Drew MD documented in this encounter Plan of Treatment Upcoming Encounters Date Type Department Care Team (Late st Contact Info) Description 09/09/2024 10:20 EST Office Visit [facility] Endocrinology - [facility] [address] [place] [address] Day Littlejohn MD PhD [address] [facility] [address] [place] [address] documented as of this encounter Procedures Procedure Name Priority Date/Time Associated Diagnosis Comments MR HEAD W/WO CONTRAST 08/13/2005 13:23 EST documented in this encounter Results * MR HEAD W/WO CONTRAST (08/13/2005 13:23 EST) Anatomical Region Laterality Modality Other 08/13/2005 13:2 3 EST Narrative 02/03/2009 5:03 EDT PATIENT NEEDS TO BE SENT TO [facility] FOR ANESTHESIA HEADACHES, S/P CRANIOPHOYRGRAM RESECTION 10/12/04,CVA'S MRI OF THE BRAIN WITH AND WITHOUT CONTRAST: 08/13/05. CLINICAL HISTORY: Headache status post craniopharyngioma resection 10/12/04. ??Rule out CVA or residual tumor. TECHNIQUE: Sagittal T1 FLAIR, transverse T2 FLAIR, FSE T2, diffusion and gradient echo non-contrast MR images of the brain were performed. Transverse, coronal and sagittal T1 images of the brain were obtained following IV contrast administration. COMPARISON: 03/27/05. FINDINGS: ??There has been prior right frontotemporal craniotomy. Tissue loss and gliosis are present in the right frontal and temporal lobes. ??These are stable postsurgical changes. There is also bilateral thalamic tissue loss consistent with prior infarcts. This is unchanged in appearance from the prior examination. ??There is diffuse enhancement of the pachymeninges, likely postsurgical as well. No nodular or leptomeningeal enhancement is appreciated. There is an aneurysm clip present, unchanged in position from the previous examination. ??A focal area of nodular enhancement is noted in the tumor resection bed in the suprasellar region. This measures approximately 14 mm AP x 8 mm craniocaudad x 12 mm transverse and is stable from the previous examination. No new areas of enhancement are appreciated. There is enlargement of the sella which is also stable. There is near complete opacification of the left sphenoid sinus as well as mucoperiosteal thickening within the ethmoid air cells. ??The ventricles are stable in caliber. IMPRESSION: 1. Status post right frontotemporal craniotomy for suprasellar tumor resection. 2. Nodular enhancement at the periphery of the tumor resection cavity measuring 14 x 8 x 12 mm. This is stable from the previous examination. No new areas of enhancement are appreciated. 3. Evidence of chronic sphenoid and ethmoid sinusitis. D: ??08/13/05 T: ??08/14/05 /lds. I have personally reviewed the images and the above interpretation and agree with the findings. Procedure Note Adriane Juan MD / Sandra Zavala MD - 02/03/2009 PATIENT NEEDS TO BE SENT TO [facility] FOR ANESTHESIA HEADACHES, S/P CRANIOPHOYRGRAM RESECTION 10/12/04,CVA'S MRI OF THE BRAIN WITH AND WITHOUT CONTRAST: 08/13/05. CLINICAL HISTORY: Headache status post craniopharyngioma resection 10/12/04. Rule out CVA or residual tumor. TECHNIQUE: Sagittal T1 FLAIR, transverse T2 FLAIR, FSE T2, diffusion and gradient echo non-contrast MR images of the brain were performed. Transverse, coronal and sagittal T1 images of the brain were obtained following IV contrast administration. COMPARISON: 03/27/05. FINDINGS: There has been prior right frontotemporal craniotomy. Tissue loss and gliosis are present in the right frontal and temporal lobes. These are stable postsurgical changes. There is also bilateral thalamic tissue loss consistent with prior infarcts. This is unchanged in appearance from the prior examination. There is diffuse enhancement of the pachymeninges, likely postsurgical as well. No nodular or leptomeningeal enhancement is appreciated. There is an aneurysm clip present, unchanged in position from the previous examination. A focal area of nodular enhancement is noted in the tumor resection bed in the suprasellar region. This measures approximately 14 mm AP x 8 mm craniocaudad x 12 mm transverse and is stable from the previous examination. No new areas of enhancement are appreciated. There is enlargement of the sella which is also stable. There is near complete opacification of the left sphenoid sinus as well as mucoperiosteal thickening within the ethmoid air cells. The ventricles are stable in caliber. IMPRESSION: 1. Status post right frontotemporal craniotomy for suprasellar tumor resection. 2. Nodular enhancement at the periphery of the tumor resection cavity measuring 14 x 8 x 12 mm. This is stable from the previous examination. No new areas of enhancement are appreciated. 3. Evidence of chronic sphenoid and ethmoid sinusitis. /. I have personally reviewed the images and the above interpretation and agree with the findings. Hilton Álvarez MD IMG MRI ORDERABLES documented in this encounter Visit Diagnoses Not on filedocumented in this encounter Care Teams Clinical Assistant Relationship Specialty Start Date End Date Yan Demarco MD [address] [place] [phone] PCP - General 08/22/09 02/20/10 Corin Skinner MD [address] [place] [phone] PCP - General 10/24/08 08/21/09 Akil Serrano MD [address] [place], [place] [address] [place], [place] [id number] PCP - General 02/21/10 04/16/11 Yossi Torres MD [address] [place] [phone] PCP - General 04/17/11 03/14/16 Emilee oCdy MD [address] [place] [phone] PCP - General 03/15/16 09/29/18 Ren Vaz MD [address] [place] [address] PCP - General 09/30/18 documented as of this encounter
--- OUTSIDE RECORDS SUMMARY | 2024-03-05 15:51 | XMS_ITS | Encounter Summary ---
Author Organization [facility] Address [address] [place] [address] Care Team Providers Care Clay Grinder Name Role Phone Corin Skinner MD Primary Care Provider [phone] Encounter Details Date Type Department Care Team (Late st Contact Info) Description 02/06/2006 Before PRISM Converted Visit (Maple) [facility] - Maple conversion [address] [place] [address] Skyler Edwards [facility] [address] [place] [phone] Social History Tobacco Use Types Packs/Day Years Used Date Smoking Tobacco: Never Assessed Sex and Gender Information Value Date Recorded Sex Assigned at Not on file Gender Identity Not on file Sexual Orientation Not on file documented as of this encounter Progress Notes * Skyler Edwards MD - 06/16/2009 1310 EST PROGRESS/FOLLOWUP NOTE - 02/06/2006 February 06, 2006 Kris Drew MD [address] [place] [phone] 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 Members of his nursing team, his primary care sales representative, and his father accompanied him to the visit. Miguel Angel is now 15 years 7 months old. He has been healthy since our last visit with no interval illnesses. However, there has been a huge loss for Miguel Angel as his mother in January secondary to complications related to her diabetes mellitus. It appears that his father has reentered his life andis now planning to take Miguel Angel homewith him to the [place] area. Father lives with his new and several other children. He is in the process of preparing his home for Miguel Angel's return which will likely occur in the next month. Miguel Angel currently remains at the [facility]. Based on review of notes provided by your team, it appears that his main issues are currently related to behavioral problems. In particular, he is demonstrating increased aggression. His behavioral medications are being titrated as a result. These behavioral issues apparently began before the loss of his mother. Otherwise Miguel Angel has made substantial progress since last seen in this clinic both with respect to mobility and increasing speech. It is still unclear to me if he retains any of his vision. He has intermittently complained of some nonspecific aches and pains which are typically brief and migratory. He rarely complains of headaches. The care team is reportedly keeping to the recommended fluid regimen of 2 to 2.5 L per day. He is incontinentbut they have not appreciated any significant change in his urine output and his weight has been stable if not slightly increased. They are making attempts at providing an appropriate caloric restriction for Miguel Angel given that he will eat anything. He has been having bowel movements at least twice per day as of late but his nurse quickly notes that he remains on MiraLax and Colace for past problems with constipation. They have not noted any skin changes, irritability, nausea, vomiting. He has been developing increasing pubic hair on his testosterone injections. The remainder of a thorough review of systems was noncontributory. Miguel Angel's current list of medications includes: 1. Cortef 10 mg q.a.m., 5 mg each afternoon, 5 mg q. p.m. 2. DDAVP 0.15 mg t.i.d. 3. Levothyroxine 150 mcg daily. 4. Testosterone enanthate 100 mg IM q.28 days. 5. Citracal (350 mg elemental calcium/200 International Units vitamin D) b.i.d. 6. Niacin 75 mg t.i.d. 7. Risperdal 1 mg q. p.m. 8. Zoloft 100 mg q.a.m. 9. Ritalin 15 mg q.a.m., 5 mg each afternoon. 10. Prilosec 40 mg daily. 11. MiraLax one- half capful daily. 12. Colace 150 mg b.i.d. I was able to review Miguel Angel's blood test results over the last several months and his sodiums have ranged from 133 to 153 with the majority in the mid- 130 to 140 range. His most recent test results were on 01/21/2006 and revealed a sodium of 141, random glucose 96, BUN 15, and creatinine 0.9. His liver function tests were normal. I did not see any results of thyroid functiontesting. On physical exam, his care team asked that we defer height and weight measurement as he was recently measured at 80.4 kg. I could not find a recent height measurement in his records. Vital signs revealed a blood pressure of 124/67 with a resting pulse of 94. Head and neck exam revealed moist mucous membranes and no lymphadenopathy. He was unable to track on exam and I did not get the sense of anyfunctional visual ability. There was no palpable goiter. Cardiorespiratory exam was unremarkable. Abdominal exam was benign. Deep tendon reflexes were 2+ and there was no tremor. There were no appreciable bony deformities or palpable tenderness along the long bones or along the spinal column. Skin temperature, texture, and turgor were normal. Sexual development was rated as Devonte stage III for pubic hair and penile length with testicular volumes of 3 to 4 mL bilaterally. There was no axillary hair. Miguel Angel has made significant progress since our last visit in clinic. He appears to be struggling with some behavioral issues at this time for which his regimen of medications is being adjusted. 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 His serial sodiums have been within the target range and appear to be well- controlled overall on his current regimen. He will remain onhis DDAVP 0.15 mg t.i.d. and his fluid regimen of 2 to 2.5 L per day. I have repeated his serum sodium today and recommend that they be repeated on a monthly basis or if there is any clinical deterioration or concern. 2. ACTH deficiency. He is on an appropriate physiologic daily replacement dose. I have provided copies of an updated stress letter to his caregivers and recommended that they keep this in the front of his chart. 3. TSH deficiency. Miguel Angel is clinically euthyroid on today's exam. His free T4 level was repeated today and I will titrate his dose as needed based on these results. He should continue to have this tested every six months. 4. Hypogonadotropic hypogonadism. He has shown good clinical response to his testosterone injections since our last visit. He is due for an increase in his dose as it has been six months and I have increased his testosterone enanthate to 150 mg IM q.28 days. 5. Growth hormone deficiency. While linear growth is not an issue for Miguel Angel at this time, adult growth hormone replacement may be considered in the future. Given the multiple issues which Miguel Angel is facing at this time we willsimply work on assuring adequate calcium and vitamin D intake and testosterone supplementation so as to minimize the risk for bone fragility and reopen discussions regarding consideration for adult growth hormone replacement at a later time. I had a longdiscussion with father and his caregivers reviewing all of these concerns, particularlyas father will be assuming care for Miguel Angel in the near future. I explained to him that I will need to see him every six months in followup to address all of these issues and that we will need to arrange for periodic blood testing when he moves back to the [place] area. His caregivers had questions regarding the frequency of followup scanning which I redirected to his neurosurgeon. At a minimum, I suspect that he willneed repeat imaging on a yearly basis to monitor stability and reassure there isno recurrence of the tumor. Thank you for allowing me to participate in the care of this patient. If have any further questionsor concerns please do not hesitate to contact me. Sincerely, Signed by Skyler Edwards MD 02/23/2006 22:09 [facility] [id number] James Zimakas, MD Skyler Edwards MD Division of Pediatric Endocrinology [phone] - Skyler Edwards MD A - O2 Job ID: [id number] Document ID: [id number] cc: MD Kris Mccauley MD *J Acosta Ramos MD, [facility], [address] [place] [address]* documented in this encounter Plan of Treatment Upcoming Encounters Date Type Department Care Team (Late st Contact Info) Description 09/09/2024 10:20 EST Office Visit [facility] Endocrinology - [address] [address] Day Littlejohn MD PhD [address] [facility] [address] [place] [address] documented as of this encounter Visit Diagnoses Not on filedocumented in this encounter Care Teams Clay Grinder Relationship Specialty Start Date End Date Corin Skinner MD [address] [place] [phone] PCP - General 10/24/08 08/21/09 documented as of this encounter
--- OUTSIDE RECORDS SUMMARY | 2024-03-05 15:51 | XMS_ITS | Encounter Summary ---
Author Organization [facility] Address [address] [place] [address] Care Team Providers Care Dairy Cattle Farm Worker Name Role Phone Corin Skinner MD Primary Care Provider [phone] Encounter Details Date Type Department Care Team (Late st Contact Info) Description 08/13/2006 Before PRISM Converted Visit (Maple) [facility] - Maple conversion [address] [place] [address] Skyler Edwards [facility] [address] [place] [phone] Social History Tobacco Use Types Packs/Day Years Used Date Smoking Tobacco: Never Assessed Sex and Gender Information Value Date Recorded Sex Assigned at Not on file Gender Identity Not on file Sexual Orientation Not on file documented as of this encounter Progress Notes * Skyler Edwards MD - 07/13/2009 0325 EST PROGRESS/FOLLOWUP NOTE - 08/13/2006 Kris Drew MD [address] [place] [address] [place] [address] 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 His foster mother, Krissy Wilson, and network account manager, Edel Jones, accompanied him to the visit. Miguel Angel is now 16 years and2 months old. Miguel Angel was discharged from [facility] in June 2006, and has been in this foster home since that time. While father reportedly still wants to take careof Miguel Angel, his house will need modifications in order to accommodate Miguel Angel's wheelchair. In the interim, he is with his new foster family indefinitely. Miguel Angel is attending [employer] for twohours per day. He receives PT, OT, speech therapy, and also is learning to read braille. His fostermother appeared very well versed fabrice of his medical needs. She is keeping him to the fluid restriction of 2 liters maximum per day. She has also been working at reducing calories to a maximum of 1600 calories per day, and his weight has reportedly been stable since his discharge from [facility]. While she does not measure urine input at home, she feels that the frequency of voiding is unchanged, and he is changed four to five times per day. He has two soft bowel movements per day. His energy level is stable, and he has been making some slow progress with respect to physical activities. He is weight bearing for approximately 15 to 30 minutes per day, but the remainder of his activities are in the sitting position. Miguel Angel has reportedly not had any skin changes, temperature instability,tremors. He is being followed by psychiatry for his behavioral issues and adjustment of his psychotropic medications. I did receive a call from [facility] in April 2006, at which time there was concern regarding migraine headaches. I recommended a repeat MRI, which was obtained in May 2006 and revealed no change from his baseline studies. These headaches have reportedly decreased in frequency since that time. The remainder of a thorough review of systems was noncontributory. Miguel Angel's medications include DDAVP 0.15 mg p.o. t.i.d.; Cortef 10 mg p.o. q.a.m., 5 mg each afternoon, and 5 mg each evening; testosterone enanthate 150 mg IM every 28 days; levothyroxine 150 mcg p.o.daily; Citracal and D 1 tablet b.i.d.; niacin 75 mg t.i.d.; Ritalin 15mg q.a.m. and 5 mg each afternoon; Prilosec 40 mg daily; Risperdal 1 mg q.p.m.; sertraline 100 mg q.a.m.; Colace b.i.d. Adherence with his medications is reportedly excellent. Foster mother was aware of the potential need for stress dosing of his corticosteroids. On physical examination, Miguel Angel appeared comfortable and in no distress. He had limited verbal responses, but did appear to understand much of the conversation. His height was 170 cm and his weight was 88.5 kg. This represents a calculated BMI of 30.6. Vital signs revealed a blood pressure of 103/59with a resting pulse of 93. Head and neck exam revealed moist mucous membranes and no lymphadenopath y. He was unable to track on the exam. I could not appreciate any sense of functional vision. Therewas no palpable goiter. Cardiorespiratory exam was unremarkable. Abdominal exam was benign. Deep tendon reflexes were 2+ and there was no tremor. There were no appreciable bony deformities or palpable tenderness over the long bones or spinal column. Skin temperature, texture, and turgor were normal. Sexual development was rated as late Devonte stage III for pubic hair. There was some very scant axillary hair. Miguel Angel continues to make some gradual progress with respect to his rehabilitation. He is currently living in a foster home, and I was pleased to see that the foster mother seems to have a good grasp of his medical needs. His endocrine issues are as follows: 1. 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 His serial sodiums have been within the target range. He appears to be clinically well- controlled on his current regimen. He will remain on the DDAVP 0.15 mg t.i.d. and his fluid regimen of less than 2 liters per day. I have requested a repeat serum sodium to be obtained at the time of his next blood draw. I feel that, given the stability in his diabetes insipidus control over the last year, we can decrease the frequency of serum sodium checks to every other month. 2. ACTH deficiency. He is currently on physiologic corticosteroid replacement. I took this opportunity to review the indications for stress coverage with his foster mother in greater detail. His laststress letter remains up- to- date. 3. TSH deficiency. Miguel Angel is clinically euthyroid on today's exam. I have requested a repeat free P2pchoc with his next blood draw. He will need to have his thyroid levels checked every six months. 4. Hypogonadotropic hypogonadism. He has shown good clinical response to his testosterone injections since our last visit. He is due for an increase in his dose to testosterone enanthate 200 mg IM every 28 days. An updated prescription was given today in clinic. 5. Growth hormone deficiency. The potential for adult growth hormone deficiency may be considered in the future, although at this time we are focusing primarily on optimizing other measures for good bone health (appropriate calcium and vitamin D intake and encouraging weight bearing activities as much as possible). I will see Miguel Angel again in clinic in six months to readdress all these issues. Thank you for allowing me to participate in the care of this patient. If you have any further questions or concerns, please do not hesitate to contact me. Sincerely, Signed by Skyler Edwards MD 08/28/2006 13:32 [facility] Edwards [facility] [id number] James Zimakas, MD Skyler Edwards MD Division of Pediatric Endocrinology [phone] - Von Edwards MD P - O1 Job ID: [id number] Document ID: [id number] cc: Kris Drew MD documented in this encounter Plan of Treatment Upcoming Encounters Date Type Department Care Team (Late st Contact Info) Description 09/09/2024 10:20 EST Office Visit [facility] Endocrinology - [address] [address] Day Littlejohn MD PhD [address] [place] [address] [place] [phone] documented as of this encounter Visit Diagnoses Not on filedocumented in this encounter Care Teams Dairy Cattle Farm Worker Relationship Specialty Start Date End Date Corin Skinner MD [address] [place] [phone] PCP - General 10/24/08 08/21/09 documented as of this encounter
--- OUTSIDE RECORDS SUMMARY | 2024-03-05 15:51 | XMS_ITS | Encounter Summary ---
Author Organization [facility] Address [address] [place] [address] Care Team Providers Care Mold Unloader Name Role Phone Corin Skinner MD Primary Care Provider [phone] Encounter Details Date Type Department Care Team (Late st Contact Info) Description 08/19/2007 Before PRISM Converted Visit (Maple) [facility] - Maple conversion [address] [place] [address] Skyler Edwards [facility] [address] [place] [phone] Social History Tobacco Use Types Packs/Day Years Used Date Smoking Tobacco: Never Assessed Sex and Gender Information Value Date Recorded Sex Assigned at Not on file Gender Identity Not on file Sexual Orientation Not on file documented as of this encounter Progress Notes * Skyler Edwards MD - 05/17/2009 1424 EST PROGRESS/FOLLOWUP NOTE - Yan Demarco M.D. [facility] [address] [place] [address]/[address] [place] [address] 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 His stepmother, [facility], [facility]. Miguel Angel is now 17 years and 2 months old. Since our last visit, he has needed stress corticosteroid coverage on two occasions; for an upper respiratory tract infection and one gastrointestinal illness but did not require ER visits for these. There have been several significant changes in Miguel Angel's living situation. Parents have moved to [facility], and so Miguel Angel stays with them only on the weekends and stays with his aunt on weekdays so that he may continue to attend the [employer]. Both aunt and stepmother, who are the primary caregivers, feel that Miguel Angel has regressed significantly with respect to his rehabilitation since the start of this school year. They attribute this to his schoolcaregivers allowing him to do whatever he wants to do. They state that he spends most of his day at school napping and that there is a limited push to physical activity. They have also noticed thathe is walking much less than he had prior to the start of the school year and now spends most of histime in the wheelchair. They also recently saw a new psychiatrist who has adjusted some of his behavioral medications, particularly as Miguel Angel continues to have difficulty sleeping at night. With respect to Miguel Angel's diabetes insipidus, they continue to limit his fluid intake to 2 liters perday. His typical urine output consists of eight voids per day, but aunt has noticed that he will occasionally go an entire day without voiding or having only a single void. This occurs approximately once per week. She has brought him to the local emergency room on those occasions for both a bladderscan and serum sodium. The bladders scans have reportedly showed no urine in the bladder, but the sodiums, if anything, have been on the higher side (147 and 150). His bowel medications were recentlyadjusted beacuse of constipation. Miguel Angel's weight continues to been an issue, and caregivers are trying to limit caloric intake within reason. He continues to have three meals and a snack per day. Of note, the school was predominantly giving juices for his fluids up until most recently when they insisted that they give water instead. His caregivers have noted most recently intermittent discoloration of the hands and feet stating that they will become dark purple for up to several minutes. This typically resolves spontaneously, although the feet have remained cool and darker in appearance over the last week. This is bilateral. They also are concerned that he may be developing a contracture in the left knee with the decreasing physical activity at school. Miguel Angel continues to play with his p rivates on a regular basis, although the caregivers are trying to control this. While he will haveerections with stimulation, he apparently does not ejaculate. These behaviors will take place in public just as much as at home. The remainder of a thorough review of systems was noncontributory. Miguel Angel's current medications include: 1. DDAVP 0.2 mg t.i.d. 2. Levothyroxine 150 mcg daily. 3. Cortef 10 mg q.a.m., 5 mg every afternoon, 5 mg q.p.m. 4. Testosterone enanthate 200 mg IM every 28 days. 5. Niacin 100 mg t.i.d. 6. Caltrate D 2 tablets daily. 7. Docusate 1 tablet b.i.d. 8. Zoloft 200 mg at bedtime. 9. Seroquel 300 mg at bedtime. 10. Lunesta 1 tablets at bedtime. 11. Melatonin 3 mg at bedtime. 12. Trazodone 200 mg at bedtime. 13. GlycoLax. 05/2007 Miguel Angel had his followup MRI in conjunction with a visit with Dr. Marvin Perez in neurosurgery. The MRI showed that the residual lesion was smaller, most likely representing involution of thecystic component of the craniopharyngioma, with no other significant changes from previous. I contacted [facility] to obtain all of the blood work that was performed since our last visit, as I have not been receiving any copies of this. The sodium has ranged between 132-150 withthe most recent result of 147 in July. A total T4 was 6.6 (4.7-13.3) measured in 04/2007. On physical exam, Miguel Angel appeared comfortable and in no distress. He was able to walk with support but was primarily in a wheelchair.His weight was 96.9 kg, up 5.9 kg from our last visit. His height was 175.5 cm. His calculated BMI was 31.5. Vital signs revealed a blood pressure of 100/40 with a resting pulse of 74. Head and neck exam revealed moist mucous membranes and a clear oropharynx. He was unable to track on visual exam. There was no palpable goiter. Cardiorespiratory exam was unremarkable. Abdominal exam was benign. Neurologic exam was notable for 2+ deep tendon reflexes and no tremor.Skin temperature, texture, and turgor werenormal. Of note, the feet did appear to have poor circulation bilaterally, although the dorsal pedal pulses were 2+. There were no ulcerations, although there was a scab over his right toe that was apparently from an injury in the fall . There was limitedfull extension of the left knee. Sexual development was rated as Devonte Stage IV for pubic hair and axillary hair. Unfortunately, it appears Miguel Angel has shown some regression in his rehabilitation since our last visit. The family has several concerns about the rehabilitative services that he is receiving locally and through the [facility]. I have recommended that a referral be made to Dr. Drew Larson, our pediatric np, who has seen Miguel Angel in the past and is specialized in rehabilitation for these cases. As for his endocrine issues, they are as follows: 1.diabetes insipidus without intact thirst mechanism. There is a discrepancy between the reported intermittent decreased urine output and the high serum sodiums and reportedly empty bladder on bladder scans. I have repeated a sodium today, and the result is pending. I have not changed his DDAVP at this time as the explanation for these episodes is still unclear. 2. ACTH deficiency. Miguel Angel is currently on physiologic corticosteroid replacement. Stepmother and aunt have a good understanding of the indications for stress coverage and have an up to date stress letter. 3. TSH deficiency. Miguel Angel is clinically euthyroid on today's exam. I have repeated a Free T4 level with today's blood work. Please keep in mind that TSH results are of limited value as he has central hypothyroidism, and I will titrate his levothyroxine based on the Free T4 levels. 4. Hypogonadotropic hypogonadism. LH, FSH, and testosterone were obtained today as he is due for his next testosterone injection early next week. We may at some point need to consider increasing the frequency of injections. I did strongly recommend that the family address the self stimulatory behaviors at their next visit with their psychiatrist.While the testosterone injections may be contributing this, it is likely not the only explanation for this, and the physiologic needs for testosterone replacement make this a necessary treatment. 5. Bone health. While Miguel Angel remains on adequate calcium and vitamin D intake with his Caltrate D supplements, I am somewhat discouraged to hear of the decreased weightbearing activities. Hopefully, an appropriate physiotherapy routine can be developed which will help encourage weightbearing activities. 6.hormone deficiency. The potential for adult growth hormone replacement may be considered in the near future, particularly with respect to the potential benefits on bone health and lipid profile. While I am reassured by the reported tumor stability, the family does not wish to pursue growth hormone replacement at this time. 7. Finally, I have no explanation for the poor circulation that was noted in the feet, although I recommend that they follow up with you regarding this, as this may need additional investigations. I will see Miguel Angel again in clinic in six months. Thank you for allowing me to participate in the care of this patient. If you have any further questions or concerns, please do not hesitate to contact me. Sincerely, Signed by Skyler Edwards MD 08/24/2007 16:10 Skyler Edwards MD Division of Pediatric Endocrinology [phone] - Skyler Edwards MD P - YASMINE Job ID: [id number] Doc ID: [id number] cc: MD Yan Mancera MD P - yasmine Job ID: [id number] Doc ID: [id number] cc: MD Yan Mancera MD documented in this encounter Plan of Treatment Upcoming Encounters Date Type Department Care Team (Late st Contact Info) Description 09/09/2024 10:20 EST Office Visit [facility] Endocrinology - [address] [address] Day Littlejohn MD PhD [address] [place] [address] [address] [place] [phone] documented as of this encounter Visit Diagnoses Not on filedocumented in this encounter Care Teams Mold Unloader Relationship Specialty Start Date End Date Corin Skinner MD [address] [place] [phone] PCP - General 10/24/08 08/21/09 documented as of this encounter
--- OUTSIDE RECORDS SUMMARY | 2024-03-05 15:51 | XMS_ITS | Encounter Summary ---
Author Organization [facility] Address [address] [place] [address] Care Team Providers Care Bakeshop Cleaner Name Role Phone Unavailable Primary Care Provider Unavailabl e Encounter Details Date Type Department Care Team (Late st Contact Info) Description 08/13/2006 12:57 EST Hospital Encounter [facility] [address] [place] [address] [facility] [address] [place] [phone] Social History Tobacco Use Types Packs/Day Years [...] Info) Description 09/09/2024 10:20 EST Office Visit [facility] Endocrinology - [facility] [address] [place] [address] Day Littlejohn MD PhD [address] [facility] [address] [place] [phone] documented as of this encounter Visit Diagnoses Not on filedocumented in this encounter
--- OUTSIDE RECORDS SUMMARY | 2024-03-05 15:51 | XMS_ITS | Encounter Summary ---
Author Organization [facility] Address [address] [place] [address] Care Team Providers Care Landscape Laborer Name Role Phone Unavailable Primary Care Provider Unavailabl e Encounter Details Date Type Department Care Team (Late st Contact Info) Description 02/06/2006 11:26 EDT Hospital Encounter [facility] [address] [place] [address] [facility] [address] [place] [phone] Social History Tobacco Use Types Packs/Day Years [...] [facility] Endocrinology - [facility] [address] [place] [address] Day Littlejohn MD PhD [address] [facility] [address] [place] [phone] documented as of this encounter Visit Diagnoses Not on filedocumented in this encounter
--- OUTSIDE RECORDS SUMMARY | 2024-03-05 15:51 | XMS_ITS | Encounter Summary ---
Author Organization [facility] Address [address] [place] [address] Care Team Providers Care Side Door Worker Name Role Phone Yan Demarco MD Primary Care Provider Corin Skinner MD Primary Care Provider [phone] Encounter Details Date Type Department Care Team (Late st Contact Info) Description 11/27/2007 Office Visit [facility] - Maple conversion [address] [place] [address] Neo Benitez MD [address] [place] [phone] Social History Tobacco Use Types Packs/Day Years Used Date Smoking Tobacco: Never Assessed Sex and Gender Information Value Date Recorded Sex Assigned at Not on file Gender Identity Not on file Sexual Orientation Not on file documented as of this encounter Progress Notes * Neo Benitez MD - 08/25/2009 1524 EST Department - Physician Summary Registration Date/Time: 11/27/2007 17:36 Arrived- By ambulance. Historian- EMS personnel. Note (transfer from outside hospital - NA 123 - MSreturned to baseline prior to transfer per notes ). HISTORY OF PRESENT ILLNESS Chief Complaint: DECREASED MENTAL STATUS. This started today and is now gone. He is described as having decreased responsiveness. History of chronic dementia. No weakness or numbness. No difficulty walking. The patient usually has poor alertness; he is usually unable to walk. The patient has had similar symptoms previously. The patient was seen recently at another facility in the emergency department. REVIEW OF SYSTEMS Unobtainable due to patient's altered mental status. PAST HISTORY See nurses notes. 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 Medications: include steroids, thryoid replacement . The patient's medications have been reviewed. See nurses notes. Allergies: The patient's allergies have been reviewed. See nurses notes. SOCIAL HISTORY Nonsmoker. No alcohol use. FAMILY HISTORY Negative. ADDITIONAL NOTES The nursing notes have been reviewed. PHYSICAL EXAM Appearance: groaning speech, following commands . Vital Signs: Normal. Head: Headatraumatic. Eyes: Dysconjugate gaze. ENT: Airway intact. Moist mucous membranes. Neck: Normal inspection. Neck supple. CVS: Normal heart rate and rhythm. Heart sounds normal. Respiratory: No respiratory distress. Breath sounds normal. Abdomen: Abdomen soft and nontender. Back: Normal inspection. Skin: Normal skin color and turgor. Skin warm and dry. No rash. Extremities: Extremities exhibit normal ROM. No lower extremity edema. Neuro: No motor deficit. LABS, X-RAYS, AND EKG Bedside Tests: Glucose: mild hypoglycemia - 52 (performed at bedside). Chemistries: Basic Metabolic Panel (Chem 8)- normal. Na- 129. Glucose - 64. Pulse Oximetry: Interpretation: normal. PROGRESS AND PROCEDURES E.D. Course: ivf, d50, URINE . Consult obtained from pediatrics. Patient/family counseled. Disposition: Admitted. CLINICAL IMPRESSION Changed mental status. (Electronically signed by Neo Benitez MD 11/28/2007 23:17) Addenda for ISABELLA HODGEMIGUEL ANGEL VisitID: [id number] Date: 11/27/2007 11/27/2007 15:41 MARGUERITE ONTIVEROS FROM PICU REFERRING PT TO ED FOR AMS. 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 PT PROTECTING AIRWAY AT THIS TIME. CALL PICU TEAM ON ARRIVAL. PT COMING BY AMBULANCE, REFERRALTAKEN BY DR ORTIZ. signed by Dinorah Palmer - 11/27/2007 15:41) Department - Nursing Summary Registration Date/Time: 11/27/2007 17:36 TRIAGE Initial Assessment Triage time 17:59 Nov 27 2007. Acuity: LEVEL 3. BP: 120 / 76. HR: 81. RR: 22. O2 saturation: 100% room air. Alert. No acute distress. --1809 Dinorah Boyd R.N.. Medications (Delatestryl 200mg IM every 28 days, Glycolaxpowder daily, cortef 10 mg every 0800, cortef 5mg at noon and 4pm, levothyroxine 150 mcg qd, Seroquel 600mg at 1600 daily, Sertaline HCL 200mg 2 qam and 4pm, citracal plus d at 0800 and 1600, colace 1-200mg bid, [id number] mg every 8 hours, niacin 75mg tid, temazepan 30 mg at 1600 daily - last doses given not available on transfer paperwork). --1809 Dinorah Boyd R.N.. History Chief Complaint: (altered mental status). This started today. Roberson-Carter pain scale: 2/10. Treatment TIRE ASSEMBLER: (see transfer paperwork). SOCIAL HX: Nonsmoker. No alcohol use. 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 pt. has around the clock care. Arrived by EMS. Historian: EMS (rail transportation tabeler). --1809 Dinorah Boyd R.N.. PHYSICAL ASSESSMENT Alert. Appears in no acute distress. (answers some simple questions, verbage is slurred/moaning sounds but appropriate, follows simple commands). Pupillary exam: Right pupil 2mm, round and sluggishlyreactive to light directly. Left pupil: 3mm, round and sluggishly reactive. Respirations not labored. Abdomen soft. Skin is warm and dry. --1811 Dinorah Boyd R.N.. NURSING PROGRESS NOTES Patient gowned. (hospital sitter at bedside for pt. safety; parents phoned and on the way - to arrive in one hour - pt. informed). Bed placed in lowest position. --1812 Dinorah Boyd R.N. Temp: 35.9 tympanic. --1832 Emerald Overton R.N. Finger stick glucose: 52 mg/dL; performed by nurse. --1832 Emerald Overotn R.N. (Attempted to draw blood unsuccessfully. Phlebotomy paged ). --1833 Emerald Overton R.N. (Blood work drawn by phlebotomy). --1858 Emerald Overton R.N. (Pt cleansed and Depends changed for large amount of urine ). --1899 Emerald Overton R.N. D-50 slow IVP: 25 gm over 5 minutes. IV patency established. IV site checked: no pain, redness, or swelling. IV flushed thoroughly pre- and post-medication administration. . --1915 Emerald Overton R.N. (PEDS residents at bedside evaluating pt ). --1916 Emerald Overton R.N. In/out catheterization placement unsuccessful. --1954 Emerald Overton R.N. (PEDS residents and attending aware of inability to cath pt. ). --1956 Emerald Overton R.N. (family at ; 1:1 sitter obs dc'd due to family presence). --2033 Nyasia Morelos R.N. Patient identifiers checked. CIPRO 500 mg PO. . --2100 Rachel Miranda R.N. (family with pt. pt. eating sandwich without any s/s difficulty). The patient is calm. Patient reports current pain level as 0/10. Call light placed in reach of family. --2132 Dinorah Boyd R.N. (Pt given pudding and juice.). --2236 Jennifer Previti, E.M.T. (Pt changed, linens changed.). --2236 Jennifer Previti, E.M.T. (Pt resting quietly.). --2236 Jennifer Previti, E.M.T. BP: 98 / 54. HR: 106. RR: 10. O2 saturation: 99% room air. library monitor, pulse oximeter and NIBPmonitor placed on patient; monitor alarms on. (pt. parents report pt. with brief episode ofhe was gone states pt. eyes rolled back in his head and it was like he wasn't there deny any kind of motor movement or eye movement - this not witnessed by this sports writer; pt. is upon assessment at what parents state is his baseline - peds resident paged). --2328 Dinorah Boyd R.N. O2 saturation: 97 % room air. (spoke to Dr. Phillips from peds, she is to come and evaluate pt.; pt. mother gave pt. ddavp .15mg po of pt. own meds). --2339 Dinorah Boyd R.N. (peds in with pt.). --2344 Dinorah Boyd R.N. Finger stick glucose: 80 mg/dL; performed by tech. --2347 Lc Castro E.M.T. Blood samples drawn and sent to lab: jaron junior. (phlebotomy). --0013 Dinorah Boyd R.N. HR: 114. RR: 10. O2 saturation: 100% room air. The patient is resting quietly. Call light placed inreach. Bed placed in lowest position. Patient waiting for lab results. --0026 Dinorah Boyd R.N. (dr. phillips notified of lab results and here to see pt. again). --0037 Dinorah Boyd R.N. BP: 85 / 42. HR: 122. RR: 12. O2 saturation: 99 % room air. (dr. phillips aware of vs ). Skin is warm and dry. Skin color within normal limits. --0043 Dinorah Boyd R.N. (peds in with pt.). --0120 Raleigh Lazo R.N.. IV / I&O Flowsheet IV fluids started. IV bag #1 of 1000 mL NS; rate = 100 mL/hr infusing via IV pump. --1916 Clara Ma IV fluids discontinued. IV bag #1; 150cc infused. --2033 Nyasia Morelos R.N. IV fluids started. IV bag #1 of 1000 mL NS; rate = 250 mL/hr infusing via IV pump. --012 Brittny AguilarMAnnabel. DISPOSITION / DISCHARGE Report was given (liyah on m6). --2358 Dinorah Boyd R.N. Report was given (Jc on B5). --011 Brittny AguilarMAnnabel Departure time: 314. --035 Chela Escalante R.N.. Clara Montiel R.N., R.N., R.N. Lisa Previti E.M.TEmerald Macedo.MAnnabel Escalante R.N. Locked/Released at 11/28/2007 3:51 by Chela Escalante R.N. documented in this encounter Plan of Treatment Upcoming Encounters Date Type Department Care Team (Late st Contact Info) Description 09/09/2024 10:20 EST Office Visit [facility] Endocrinology - [address] [address] Day Littlejohn MD PhD [address] [place] [address] [address] [place] [address] documented as of this encounter Visit Diagnoses Not on filedocumented in this encounter Care Teams Side Door Worker Relationship Specialty Start Date End Date Yan Demarco MD [address] [place] [address] PCP - General 08/22/09 02/20/10 Corin Skinner MD [address] [place] [phone] PCP - General 10/24/08 08/21/09 documented as of this encounter
--- OUTSIDE RECORDS SUMMARY | 2024-03-05 15:51 | XMS_ITS | Encounter Summary ---
Author Organization [facility] Address [address] [place] [address] Care Team Providers Care Petrographer Name Role Phone Yan Demarco MD Primary Care Provider [phone] Corin Skinner MD Primary Care Provider Akil Serrano MD Primary Care Provider [phone] Encounter Details Date Type Department Care Team (Late st Contact Info) Description 11/27/2007 Results Only [facility] - Maple conversion [address] [place] [address] Emergency, MD Diya Social History Tobacco Use [...] Office Visit [facility] Endocrinology - [facility] [address] [place] [address] Day Littlejohn MD PhD [address] [facility] [address] [place] [address] documented as of this encounter Procedures Procedure Name Priority Date/Time Associated Diagnosis Comments TESTS ADDED BY PHONE Routine 11/27/2007 18:20 EDT TESTS ADDED BY PHONE Routine 11/27/2007 18:20 EDT COMPLETE BLOOD COUNT AND DIFFERENTIAL Routine 11/27/2007 18:20 EDT BUN Routine 11/27/2007 18:20 EDT T4 FREE Routine 11/27/2007 18:20 EDT GLUCOSE, SERUM Routine 11/27/2007 18:20 EDT CREATININE Routine 11/27/2007 18:20 EDT ELECTROLYTES Routine 11/27/2007 18:20 EDT documented in this encounter Results * (ABNORMAL) GLUCOSE, SERUM (11/27/2007 18:20 EDT) Pathologist [facility] Glucose, Serum 64(L) 70 - 100 mg/dl [facility] 11/27/2007 18:2 0 EDT 11/27/2007 18:51 EDT Default Emergency MD CHEMISTRY & BLOOD G ORDERABLES Performing Organization Address City/[facility] Co de Phone Number [facility] [address] [place] [address] * (ABNORMAL) ELECTROLYTES (11/27/2007 18:20 EDT) Pathologist [facility] Sodium 129(L) 136 - 145 mEq/L [facility] Potassium 4.7 3.5 - 5.0 mEq/L [facility] Chloride 92(L) 96 - 110 mEq/L [facility] CO2 27 24 - 32 mEq/L [facility] 11/27/2007 18:2 0 EDT 11/27/2007 18:51 EDT Default Emergency MD CHEMISTRY & BLOOD G ORDERABLES Performing Organization Address City/[facility] Co de Phone Number [facility] [address] [place] [address] * T4 FREE (11/27/2007 18:20 EDT) Free T4 0.9 0.8 - 1.5 ng/dL [facility] 11/27/2007 18:2 0 EDT 11/27/2007 18:51 EDT Default Emergency MD CHEMISTRY & BLOOD G ORDERABLES Performing Organization Address City/[facility] Co de Phone Number [facility] [address] [place] [address] * CREATININE (11/27/2007 18:20 EDT) Pathologist [facility] Creatinine 0.60 0.6 - 1.2 mg/dl [facility] GFR, Calculated Age <18 ml/min/1.7 3m2 [facility] 11/27/2007 18:2 0 EDT 11/27/2007 18:51 EDT Default Emergency MD CHEMISTRY & BLOOD G ORDERABLES Performing Organization Address [facility] de Phone Number [facility] [address] [place] [address] * (ABNORMAL) HEMAGRAM AND DIFFERENTIAL (11/27/2007 18:20 EDT) WBC 4.74 4.6 - 11.2 K/cmm [facility] RBC 5.57(H) 4.50 - 5.30 M/cmm [facility] Hemoglobin 14.2 13.0 - 16.0 gm/dl [facility] HCT 41.1 37.0 - 49.0 % [facility] MCV 74(L) 78 - 98 fl [facility] MCH 25.5 pg [facility] MCHC 34.7 gm/dl [facility] PLT 199 156 - 312 K/cmm [facility] RDW-CV 17.2 % [facility] Neutrophils 45.0 % [facility] Lymphocytes 43.0 % [facility] Monocytes 12.0 % [facility] ABS Neutrophils 2.13 K/cmm [facility] ABS Lymphs 2.04 K/cmm [facility] ABS Monocytes 0.57 K/cmm [facility] RBC Morphology 1+ Anisocytosis 1+ Microcytes 1+ Poikilocytosis 1+ Ovalocytes [facility] Type of Diff: Manual [facility] 11/27/2007 18:2 0 EDT 11/27/2007 18:51 EDT Default Emergency MD PACKAGES & DNA PROB E ORDERABLES Performing Organization Address [facility] de Phone Number [facility] [address] [place] [address] * BUN (11/27/2007 18:20 EDT) BUN 9 8 - 21 mg/dl [facility] 11/27/2007 18:2 0 EDT 11/27/2007 18:51 EDT Default Emergency MD CHEMISTRY & BLOOD G ORDERABLES Performing Organization Address [facility] Phone Number [facility] [address] [place] [address] * TESTS ADDED BY PHONE (11/27/2007 18:20 EDT) Tests to be added STAT SGL [facility] Who Called [facility] Location Code Emergency Department [facility] 11/27/2007 18:2 0 EDT 11/27/2007 18:51 EDT Default Emergency MD CHEMISTRY & BLOOD G ORDERABLES Performing Organization Address [facility] de Phone Number [facility] [address] [place] [address] * TESTS ADDED BY PHONE (11/27/2007 18:20 EDT) Tests to be added FT4 [facility] Who Called [facility] Location Code Emergency Department [facility] 11/27/2007 18:2 0 EDT 11/27/2007 18:51 EDT Default Emergency MD CHEMISTRY & BLOOD G ORDERABLES Performing Organization Address [facility] Phone Number [facility] [address] [place] [address] documented in this encounter Visit Diagnoses Not on filedocumented in this encounter Care Teams Petrographer Relationship Specialty Start Date End Date Yan Demarco MD [address] [place] [address] PCP - General 08/22/09 02/20/10 Corin Skinner MD [address] [place] [phone] PCP - General 10/24/08 08/21/09 Akil Serrano MD [address] [place] [address] [address] [place] [address] PCP - General 02/21/10 04/16/11 documented as of this encounter
--- OUTSIDE RECORDS SUMMARY | 2024-03-05 15:51 | XMS_ITS | Encounter Summary ---
Author Organization [facility] Address [address] [place] [address] Care Team Providers Care Resident Services Director Name Role Phone Yan Demarco MD Primary Care Provider [phone] Corin Skinner MD Primary Care Provider [phone] Akil Serrano MD Primary Care Provider [phone] Yossi Torres MD Primary Care Provider [phone] Emilee Cody MD Primary Care Provider + Ren Vaz MD Primary Care Provider [phone] Encounter Details Date Type Department Care Team (Late st Contact Info) Description 03/27/2005 Before PRISM Converted Visit (Maple) [facility] Pediatric Neurology - [place] [address] [place], [place] [id number] Hilton Álvarez MD [address] [place] [phone] Social History Tobacco Use Types Packs/Day [...] [facility] Endocrinology - [address] [address] Day Littlejohn MD PhD [address] [place] [phone] documented as of this encounter Procedures Procedure Name Priority Date/Time Associated Diagnosis Comments MR HEAD W/WO CONTRAST 03/27/2005 15:20 EDT documented in this encounter Results * MR HEAD W/WO CONTRAST (03/27/2005 15:20 EDT) Anatomical Region Laterality Modality Other 03/27/2005 15:2 0 EDT Narrative 01/04/2009 9:40 EDT S/P CRANIOPHOYRGRAM RESECTION 10/12, WITH CVA'S R/O RESIDUAL TUMOR, CHANGE IN PREV. CVA'S MRI OF THE BRAIN WITH AND WITHOUT CONTRAST CLINICAL HISTORY: Status post craniopharyngioma resection on October 12. ??Rule out residual tumor. COMPARISON EXAMINATIONS: 01/10/2005, 03/27/2005 at 1440 hours. TECHNIQUE: Sagittal T1 FLAIR, transverse T2 FLAIR, FSE T2, diffusion and gradient echo non-contrast MR images of the brain were performed. Transverse, coronal and sagittal T1 images of the brain were obtained following IV contrast administration. IMPRESSIONS: 1. ??Status post previous craniotomy for resection of craniopharyngioma. 2. Abnormal enhancing 8.5 x 13 x 15 mm structure is suspicious for residual tumor in this region. 3. Gliosis right frontal/temporal area, postoperative changes. 4. ??Susceptibility artifact from clip near the basilar artery. 5.Lacunar infarcts bilateral thalamic areas, unchanged. 6. ??Dural thickening anteriorly which is ??postsurgical. FINDINGS: No acute intracranial hemorrhage, extra-axial fluid collections, or midline shift. ??No evidence of ischemia or mass effect. Gradient-echo shows a large amount of susceptibility artifact in the area of the previous clipping and surgery. ??DWI is normal. ??The ventricles are similar in size to the previous study. ??The posterior fossa shows an area of CSF density that most likely represents an asymmetric cisterna magna, but could represent arachnoid cyst. Postsurgical gliosis in the right frontal lobe and post-craniotomy changes.Thalamic bilateral infarcts are seen. no change. On the postcontrast sequences, there is an abnormal enhancement (8.5 x 13 x 15 mm) seen anterior and superior/adjacent to the previous surgical bed. ??This is roughly the same size as in January. ??This most likely represents some residual tumor. /tns I have personally reviewed the images and the above interpretation and agree with the findings. Procedure Note Cedric Mendoza DDS / Sandra Zavala MD - 01/04/2009 S/P CRANIOPHOYRGRAM RESECTION 10/12, WITH CVA'S R/O RESIDUAL TUMOR, CHANGE IN PREV. CVA'S MRI OF THE BRAIN WITH AND WITHOUT CONTRAST CLINICAL HISTORY: Status post craniopharyngioma resection on October 12. Rule out residual tumor. COMPARISON EXAMINATIONS: 01/10/2005, 03/27/2005 at 1440 hours. TECHNIQUE: Sagittal T1 FLAIR, transverse T2 FLAIR, FSE T2, diffusion and gradient echo non-contrast MR images of the brain were performed. Transverse, coronal and sagittal T1 images of the brain were obtained following IV contrast administration. IMPRESSIONS: 1. Status post previous craniotomy for resection of craniopharyngioma. 2. Abnormal enhancing 8.5 x 13 x 15 mm structure is suspicious for residual tumor in this region. 3. Gliosis right frontal/temporal area, postoperative changes. 4. Susceptibility artifact from clip near the basilar artery. 5.Lacunar infarcts bilateral thalamic areas, unchanged. 6. Dural thickening anteriorly which is postsurgical. FINDINGS: No acute intracranial hemorrhage, extra-axial fluid collections, or midline shift. No evidence of ischemia or mass effect. Gradient-echo shows a large amount of susceptibility artifact in the area of the previous clipping and surgery. DWI is normal. The ventricles are similar in size to the previous study. The posterior fossa shows an area of CSF density that most likely represents an asymmetric cisterna magna, but could represent arachnoid cyst. Postsurgical gliosis in the right frontal lobe and post-craniotomy changes.Thalamic bilateral infarcts are seen. no change. On the postcontrast sequences, there is an abnormal enhancement (8.5 x 13 x 15 mm) seen anterior and superior/adjacent to the previous surgical bed. This is roughly the same size as in January. 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 /nell I have personally reviewed the images and the above interpretation and agree with the findings. Hilton Álvarez MD IMG MRI ORDERABLES documented in this encounter Visit Diagnoses Not on filedocumented in this encounter Care Teams Resident Services Director Relationship Specialty Start Date End Date Yan Demarco MD [address] [place] [address] PCP - General 08/22/09 02/20/10 Corin Skinner MD [address] [place] [phone] PCP - General 10/24/08 08/21/09 Akil Serrano MD [address] [place] [phone] PCP - General 02/21/10 04/16/11 Yossi Torres MD [address] [place] [phone] PCP - General 04/17/11 03/14/16 Emilee Cody MD [address] [place] [phone] PCP - General 03/15/16 09/29/18 Ren Vaz MD [address] [place] [address] PCP - General 09/30/18 documented as of this encounter
--- OUTSIDE RECORDS SUMMARY | 2024-03-05 15:51 | XMS_ITS | Encounter Summary ---
Author Organization [facility] Address [address] [place] [address] Care Team Providers Care Para Educator Name Role Phone Yan Demarco MD Primary Care Provider Corin Skinner MD Primary Care Provider [phone] Encounter Details Date Type Department Care Team (Late st Contact Info) Description 08/13/2005 Before PRISM Converted Visit (Maple) [facility] - Maple conversion [address] [place] [address] Skyler Edwards [facility] [address] [place] [phone] Social History Tobacco Use Types Packs/Day Years Used Date Smoking Tobacco: Never Assessed Sex and Gender Information Value Date Recorded Sex Assigned at Not on file Gender Identity Not on file Sexual Orientation Not on file documented as of this encounter Progress Notes * Skyler Edwards MD - 09/06/20092008 EST August 13, 2005 Kris Drew MD [address] [place] [phone] 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 His mother, social work nurse and two members of his care team at [facility] accompanied him to today's visit. Miguel Angel is now 15 years and one month old. This is his first visit back to the clinic since his transfer to the [facility] in [place]. However I have been in frequent contact with his physician, Dr. Ren Read, [facility] to address the multiple endocrine issues. Miguel Angel has made much progress since I had last seen him. He is now able to talk with a limited vocabulary, is able to answer questions and has purposeful gestures. He can also ambulate with support or a walker. He is receiving intensive support by physiotherapy, occupational therapy and speech therapy as well as his nursing care at the [facility]. He still has no functional vision, has mu ltiple behavioral issues and concern regarding depression for which he is being treated. While the nursing staff is aware of the potential need for stress corticosteroid coverage he has not needed this as he has not had any significant illness since [facility]. I will review Miguel Angel's progress with respect to each of the specific pituitary hormone deficiencies: 1. Central diabetes insipidus. Miguel Angel's current fluid intake is restricted to 2 liters per day; the remainder of his diet consists predominantly of solid foods with little free water. His urine outputis not being strictly monitored but was described as stable based on nursing observations. He is having monthly sodium checks and these have been relatively stableaside from one episode of hyponatre nicole which was likely due to a lapse in the monitoring of fluid intake. He is currently taking DDAVP0.1 mg p.o. t.i.d. He is not continent of urine, but this is felt to be related to his disabilitiesrather than polyuria. 2.deficiency. Miguel Angel remains on his levothyroxine 150 mcg p.o. daily. He has reportedly had thyroid function tests also obtained on a monthly basis which have reportedly been normal. I do not have theresults of his most recent lab investigations. Thelast free T4 available to me was from April of 2005 and was 1.22 (0.78 to 2.19). It is difficult to asses Miguel Angel's energy level but there have been no appreciable changes in his abilities during his physical therapies. There have been no noted skinchanges, temperature instability, irregular bowel movements, tremors. 3. ACTH deficiency. Miguel Angel remains on his Cortef replacement at 10 mg q.a.m., 5 mg each afternoon and 5 mg q. p.m. The nursing staff has a stress letter but there has been no need for stress coverage.He has been tolerating his meals with no concerns regarding abdominal pain or vomiting. 4. LH/FSH deficiency. Miguel Angel was started on testosterone enanthate 50 mg IM every 28 days in May. There has been no appreciable change in his behavior since starting the injections. There has been no note of any pubertal changes to date. 5. Obesity. Miguel Angel's caloric intake is being limited to 1600 calories per day. His physical activitylevel is gradually being increased with his physio and occupational therapies. The remainder of Miguel Angel's medications include Prilosec 40 mg b.i.d. for gastritis, Risperdal 1 mg q.p.m., Zoloft 50 mg q.a.m. and Ritalin 15 mg q.a.m., 5 mg q. p.m. for his behavioral issues and depression and niacin 75 mg t.i.d. for hypertriglyceridemia. On physical exam Miguel Angel appeared comfortable and in no distress; his height was 163.4 cm and his weight was 79.5 kg. This corresponds with calculated BMI of 29.8. His calculated body surface area is 1.89 meters squared. Vital signs revealed blood pressure of 114/67 with resting pulse of 77. Head andneck exam revealed moist mucous membranes and no lymphadenopathy. He was unable to track on exam and I did not get the sense of any functional visual ability. There was no palpable goiter. Cardiorespiratory exam was unremarkable. Abdominal exam was benign. He had 2+ deep tendon reflexes and no tremor. There were no appreciable bony deformities. Skin temperature, texture and turgor were normal. There was no pubic hair on exam. Serum sodium, and free T4 were obtain today and the results are pending. Miguel Angel's multiple pituitary hormone deficiencies appear relatively stable. His diabetes insipidus appears to be well controlled with his current DDAVP dose and fluid regimen. There is no evidence of adrenal insufficiency on his current Cortef dose. He is clinical euthyroid. There has been no progression of secondary sexual characteristics. He has been on his current dose of testosterone for four months and therefore I feel it would be reasonable to increase his dose to 100 mg every 28 days. I agree with the current caloric restrictions with respect to controlling his weight given his relative i nactivity and the hyperphagia which can often occur following surgery for craniopharyngioma. 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 He should target [id number] mg of elemental calcium and 400 to 800 international units of vitamin D per day. This should be reviewed with his metal mover at [facility]. I will adjust his DDAVP and levothyroxine if needed based on today's results. I will see Miguel [facility] in six months whether he is still at [facility] or has found a suitable foster home in [place]. Thank you for allowing me to participate in the care of this patient. If you have any further questions or concerns, please do not hesitate to contact me. ADDENDUM: free T4 1.4, sodium 134. No change. Thyroid function neded only be rechecked in 6 months unless any clinical change.. Sincerely, Signed by Skyler Edwards MD 08/16/2005 14:06 Lincoln Edwards, [facility] [phone] James Zimakas, MD Skyler Edwards MD Division of Pediatric Endocrinology [phone] - Skyler Edwards MD P - O1 Job ID: [id number] Document ID: [id number] cc: MD Kris Mccauley MD * [facility], [facility]* documented in this encounter Plan of Treatment Upcoming Encounters Date Type Department Care Team (Late st Contact Info) Description 09/09/2024 10:20 EST Office Visit [facility] Endocrinology - [address] [address] Day Littlejohn MD PhD [address] [place] [address] [place] [phone] documented as of this encounter Visit Diagnoses Not on filedocumented in this encounter Care Teams Para Educator Relationship Specialty Start Date End Date Yan Demarco MD [address] [place] [phone] PCP - General 08/22/09 02/20/10 Corin Skinner MD [address] [place] [phone] PCP - General 10/24/08 08/21/09 documented as of this encounter
--- OUTSIDE RECORDS SUMMARY | 2024-03-05 15:51 | XMS_ITS | Encounter Summary ---
Author Organization [facility] Address [address] [place] [address] Care Team Providers Care Coin Machine Collector Name Role Phone Corin Skinner MD Primary Care Provider [phone] Encounter Details Date Type Department Care Team (Late st Contact Info) Description 05/15/2007 Before PRISM Converted Visit (Maple) [facility] - Maple conversion [address] [place] [address] Marvin Perez MD [address] [place] [phone] Social History Tobacco Use Types Packs/Day Years Used Date Smoking Tobacco: Never Assessed Sex and Gender Information Value Date Recorded Sex Assigned at Not on file Gender Identity Not on file Sexual Orientation Not on file documented as of this encounter Progress Notes * Marvin Perez - 05/17/2009 7357 EST DIVISION OF NEUROSURGERY PROGRESS/FOLLOWUP NOTE - 05/15/2007 Kris Drew MD [address] [place] [phone] Drew: Miguel Angel Burgos was here for a one-year followup MRI scan. A cystic component of the lesion has shrunk, and otherwise, the scan remains unchanged. His father states that he is improving over time. He remains neurologically impaired at his baseline. He will follow up in one year with a repeat MRI scan. Sincerely, Signed by Marvin Perez MD 05/22/2007 09:17 Marvin Perez MD - Marvin Perez MD - Job ID: [id number] Doc ID: [id number] cc: Kris Drew MD - Job ID: [id number] Doc ID: [id number] cc: Kris Drew MD documented in this encounter Plan of Treatment Upcoming Encounters Date Type Department Care Team (Late st Contact Info) Description 09/09/2024 10:20 EST Office Visit [facility] Endocrinology - [address] [phone] Day Littlejohn MD PhD [address] [place] [phone] documented as of this encounter Visit Diagnoses Not on filedocumented in this encounter Care Teams Coin Machine Collector Relationship Specialty Start Date End Date Corin Skinner MD [address] [place] [phone] PCP - General 10/24/08 08/21/09 documented as of this encounter
--- OUTSIDE RECORDS SUMMARY | 2024-03-05 15:51 | XMS_ITS | Encounter Summary ---
Author Organization [facility] Address [address] [place] [address] Care Team Providers Care Utility Teller Name Role Phone Unavailable Primary Care Provider Unavailabl e Encounter Details Date Type Department Care Team (Late st Contact Info) Description 08/13/2005 9:56 EST - 08/13/2005 11:59 EST Hospital Encounter [facility] Perioperative Services- [facility] [address] [place] [address], [place] [address] Hilton Álvarez MD [address] [place] [phone] Discharge Disposition: Home or Self Care Social [...] Description 09/09/2024 10:20 EST Office Visit [facility] Endocrinology - [facility] [address] [place] [address] Day Littlejohn MD PhD [address] [facility] [address] [place] [address] documented as of this encounter Procedures Procedure Name Priority Date/Time Associated Diagnosis Comments INSULIN-LIKE GROWTH FACTOR BINDING PROTEIN 3 (IGFBP-3), SERUM Routine 08/13/2005 17:03 EST IGF-1, LC/MS, S Routine 08/13/2005 17:03 EST TSH Routine 08/13/2005 17:03 EST T4 FREE Routine 08/13/2005 17:03 EST COMPREHENSIVE METABOLIC PANEL (CMP) Routine 08/13/2005 17:03 EST documented in this encounter Results * (ABNORMAL) TSH (08/13/2005 17:03 EST) TSH 0.03(L) 0.50 - 5.00 uIU/ml [facility] 08/13/2005 17:0 3 EST 08/13/2005 17:30 EST Skyler Edwards [facility] CHEMIS TRY & BLOOD GAS ORDERABLES Performing Organization Address City/State/[facility] Co de Phone Number [facility] [address] [place] [address] * (ABNORMAL) INSULIN LIKE GROWTH FACTOR I (IGF-1) (08/13/2005 17:03 EST) Insulin-Like GF-1 54Unit: ng/mL(Note) -- EXPECTED VALUES -- ? (Ref Range) 237 to 996 ? Test Performed by: ? [facility] Dpt of Lab Med and Pathology ? [address] [facility], [place] [address] ? Records Management Associate: Hamzah Mcghee M.D. ?(L) [facility]IS[facility] GARCIA 08/13/2005 17:0 3 EST 08/13/2005 17:30 EST Skyler Edwards [facility] CHEMIS TRY & BLOOD GAS ORDERABLES [facility] [address] [place] [address] * (ABNORMAL) INSULIN-LIKE GROWTH FACTOR BINDING PROTEIN 3 (IGFBP-3), SERUM (08/13/2005 17:03 EST) IGFBP-3 2.6Unit: ug/mL(Note) -- EXPECTED VALUES -- ? (Ref Range) 3.5 to 10 ? [place] Stages ??Males ?I ? 1.2-6.4 ? II ? 2.8-6.9 ? III ?3.9-9.4 ? IV ? 3.3-8.1 ?V ? 2.7-9.1 ? Test Performed by: ? [facility] Dpt of Lab Med and Pathology ? [address] , [place] [address] ? Records Management Associate: Hamzah Mcghee M.D. ?(L) [facility] 08/13/2005 17:0 3 EST 08/13/2005 17:30 EST Skyler Edwards [facility] CHEMIS TRY & BLOOD GAS ORDERABLES Performing Organization Address [facility] de Phone Number [facility] [address] [place] [address] * T4 FREE (08/13/2005 17:03 EST) Free T4 1.4 0.8 - 1.8 ng/dl [facility] 08/13/2005 17:0 3 EST 08/13/2005 17:30 EST Skyler Hernadezmelvasantos [facility] CHEMIS TRY & BLOOD GAS ORDERABLES Performing Organization Address [facility] Phone Number [facility] [address] [place] [address] * (ABNORMAL) COMPREHENSIVE METABOLIC PANEL (08/13/2005 17:03 EST) Pathologist [facility] Potassium 3.8 3.6 - 5.2 mEq/L [facility] Sodium 134(L) 136 - 145 mEq/L [facility] Chloride 98 96 - 110 mEq/L [facility] CO2 27 24 - 32 mEq/L [facility] Total Alkaline Phosphatase 179 130 - 525 U/L [facility] Bilirubin, Total <0.5 0.0 - 1.4 mg/dl [facility] AST 27 16 - 38 U/L [facility] ALT 66(H) 10 - 45 U/L [facility] Albumin 4.7 3.0 - 5.5 g/dl [facility] Total Protein 7.7 6.3 - 8.6 g/dl [facility] Creatinine 0.6 0.6 - 1.2 mg/dl [facility] BUN 19 8 - 21 mg/dl [facility] Calcium 8.9 8.5 - 10.5 mg/dl [facility] Calculated Calcium 8.6 8.5 - 10.5 mg/dl [facility] Glucose, Serum 82 70 - 110 mg/dl [facility] Fasting? No [facility] Albumin/Globulin Ratio 1.6 [facility] 08/13/2005 17:0 3 EST 08/13/2005 17:30 EST Skyler Edwards [facility] CHEMIS TRY & BLOOD GAS ORDERABLES [facility] [address] [place] [address] documented in this encounter Visit Diagnoses Not on filedocumented in this encounter
--- OUTSIDE RECORDS SUMMARY | 2024-03-05 15:51 | XMS_ITS | Encounter Summary ---
Author Organization [facility] Address [address] [place] [address] Care Team Providers Care Accounting Supervisor Name Role Phone Unavailable Primary Care Provider Unavailabl e Encounter Details Date Type Department Care Team (Latest Contact Info) Description 01/15/2005 12:20 EDT - 03/28/2005 11:59 EDT Hospital Encounter [facility] Rehabilitation Therapy Unit Level [address] [place] [address] Allison Alarcon MD [address] [place] [id number] Discharge Disposition: Nursing Facility (Skilled) Social History Tobacco Use Types Packs/Day Years Used Date Smoking Tobacco: Never Assessed Sex and Gender Information Value Date Recorded Sex Assigned at Not on file Gender Identity Not on file Sexual Orientation Not on file documented as of this encounter Discharge Summaries * Allison Alarcon MD - 03/28/2005 0000 EDT DISCHARGE SUMMARY Admission Date: 01/15/2005 Discharge Date: 03/28/2005 ADMISSION DIAGNOSIS: Bilateral thalamic infarct, status post craniopharyngioma resection with panhypopituitarism October 12, 2004. 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 b. Status post frontal craniotomy resection October 12, 2004. c. Status post postoperative complications of bilateral thalamic infarcts, left hemiparesis, neurologic blindness, dysphagia, dysarthria, aphasia. 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 b. Complete panhypopituitarism postoperatively. 3. Hypertriglyceridemia. 4. History of behavioral management issues, on IEP (individual education plan) prior to admission. HOSPITAL/REHABILITATION COURSE: Patient is a 14-year-old young man who has had a prolonged hospital course since October 05, 2004, related to surgical treatment of his craniopharyngioma. He has had a several-year history of increasingvisual deficits and suggestions of anterior pituitary deficiencies but with delayed evaluation and diagnosis due to patientmarked anxiety and resistance to evaluation. Ultimately, diagnosis was made of a craniopharyngioma. Patient was admitted October 05, 2004, for a transsphenoidal resection. Patientinitially appeared to be doing well.There was no evidence of any further endocrine abnormalities. Upon pathology reports of the tumor, it was recommended that he undergo an open craniotomy for extensive resection of the craniopharyngioma. Intraoperatively, he required two units of packedred blood cells for bleeding near the internal carotid artery requiring clip placement. Also transection of thepituitary stalk was necessary subsequently leading to panhypopituitarism. Postoperatively, he had difficulty being stabilized pulmonary-villanueva but once this was resolved, it was aware that he had had altered mental status, decreased responsivity and significant neurologic impairment. He was noted to have marked left hemiplegia. Dr. Josh Edwards in the pediatric endocrinology service followed closely to help establish management for his panhypopituitarism. He was tested with visual evoked potentia l and found to have an exam consistent with neurologic blindness at that time. Patient was admitted to the inpatient rehabilitation service at [facility] on November 20, 2004. From a rehabilitation standpoint, he had severe impairment with limited volitional motion, significant synergy in his left side. Verbalizations were predominantly wailings and difficult to understand limited word output. He had to be approached slowly with consistent caregivers with limitedsound input. Attempts were made to discern whether some of his distress was pain related. He had ENT followup to assess his sinuses, which appeared opacified on CT scan. He also had recurrent pullingand grabbing in his right ear. He had been treated for a right otitis media just prior to transfer to rehab service. Otoscope exam was normal. ENT scoping showed there was some purulent discharge from the sphenoid sinuses and hewas placed on a three-week course of antibiotics. Patient continued to have episodes of distress and difficult to calm sessions. He was tried on pain meds and Neurontin with intermittent sense of improvement. He was put on Ritalin, which did seem to provide balance to his behavior. His sodium levels were frequently monitored to control his DDAVP dose and to have typingof blood samples. Testing of his lipid panel showed a severely elevated triglyceride level of 2000.This was occurring in conjunctionanytime when he was transitioning from having full tube feeds and starting to take foods orally. He had increasing distress and restlessness. He was transferred back to the acute care service for full evaluation to assess for potential infection or acute abdominal pathology. Workup identified only fatty liver infiltrates and persistence ofhis hypertriglyceridemia. During this acute care readmission, he was kept NPO for a while to help triglycerides balance. He was reevaluated by the endocrine service, neurosurgery service, pediatric service and ENT service. His sphenoid sinus drainage had resolved. He was three months out from his initial surgery and cleared by neurosurgery to undergo MRI testing, which did not identify any further areas of neurologic involvement from the scene than those initially seen on CAT scan. Patient did r equire sedation to complete MRI study. Once medically stable and diagnostic testing completed, patient was transferred back to inpatient rehab service on January 15, 2005. Patient has been on the inpatient rehab service since January 15, 2005. From a rehabilitation perspective, he has made significant gains in all areas of his deficits. He had gained increasing isolated function through his left upper and lower extremity. Still was showing some neglect and needed prompting and cueing to initiate use of the left side and he had impaired fine motor function on that side. He continued to have some mild intermittent left lower extremity and left hand edema. His dysarthria was less pronounced but still evident. He is progressing to tolerating a regular diet. PEG tube was kept in place to allow access for additional fluids or administration of meds if patient was too f atigued. PEG was utilized on a fairly limited basis. The patient showed no evidence of return of visual functioning. Repeat visual evoked potentials were done, which did not show improvement. The patient was able to communicate consistently to yes and no questions, respond to commands and participate in therapies. He responded well to vestibular stimulation exercises and activity in general. Behaviorally, his anxiety, restless and agitation at times with ongoing wailing were impediments attimes to therapies. He was put on a consistent behavioral management program. Psychiatry consultation was done by Dr. Wojciech Thornton. Patient had been on dose of Ritalin, which was increased. His Zoloft dose was increased and Risperidone was added in the evening. Medications to help with his behavioral and anxiety control had been relatively stable since approximately February 23 and had resultedin some significant gains in his overall ability to participate consistently and be more appropriate. He had for some time been at times getting aggressive and abusive with staff. Management of his hypertriglyceridemia was followed by Dr. Raleigh Castañeda of internal medicine. Treatment was attempted with Lopid. The patient developed diffuse rash with this. Treatment was then started with niacin, which the patient has been tolerating. Partial improvements in his hypertriglyceridemia have resulted. Patient has had some mild elevation of liver function tests. Hepatitis screeningis negative. Etiology at present is considered to be related to his fatty infiltration of the liver. The patient was also identified to have small foreign bodies in his right ear canal without any complaints of pain. In November, ENT had identified some small foreign objects, which were taken out and identified to be small polystyrene beads at that point in time. It was felt that they were coming from toys or stuffed animals in his room and these were requested to be removed. Subsequently, in this last week, ear exam showed at that time that several more small beads were found again in his ear canal. ENT service saw him while he was repeating an MRI on March 27 and removed them. There was some local trauma and slight bleeding in the ear canal related to this. Patient denied any pain or discomfort one day postprocedure and just prior to transfer. Functionally, patient required assist for transfers out of the bed to a chair, predominantly stand and pivot. Predominantly, one person is needed but two people were recommended for ultimate safety in case the patient made any sudden unpredictable moves. He was ambulating with platform walker 20 feet. He was participating in self-feeding and some ADL tasks. Videos of some of the patienttherapy sessions and approaches were done and sent with the patient in transfer to facilitate his continuing rehab program there. Patients mother, Skip Tate, was present and participated through the course of the patients hospitalization. She will continue to reside in the [facility] and she presently requires hemodialysis three times a week. She will make attempts to travel and visit her son in the facility when able. DISCHARGE PLAN: 1. Transfer to [facility] for continuation of subacute level rehab services. 2. 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 The following recommendations are being given by the pediatric endocrinology service. Further questions can be referredto the endocrinology service at [facility] by calling and asking to be connected to the endocrinology service tonguer and if available, Dr. Davin Edwards, the pediatric research and development manager. a. For management of his central diabetes insipidus, patient should continue on his DDAVP at 0.15 mg q. 8 hours. Fluid management target should be approximately 2 to 2.5 liters per day. Fluid contentof solid and semisolid foods should be counted in his total input and output. Monitoring input on adaily basis will continue to be important. If his sodium levels remain stable, monitoringoutput is not as critical. Target sodium range of approximately of 130-150 is the goal. Sodium levels taken over the last several weeks were sent with the patients lab studies. Patientsodium can be checked by checking fingerstick only and initially checking approximately twice a week to make sure he is stableand then decreasing that frequency to about once a week would be reasonable. b. 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 He canhave free T4s completed every other month or two for monitoring this dose. c. ACTH deficiency should be treated by his ongoing present cortisone doses. These are 10 mg q. morning, 5 mg q. afternoon and 5 mg q. evening. Under situations where the patient is under physiological stress, which would include temperatures between 38-39 degrees with a minor infection, each dose of his hydrocortisone can be doubled during the duration of the fever. In the situation of a fever greater than 39 degrees Celsius, severe infection, severe psychologic stress or diarrhea, his doses should be tripled during the duration of the stress. In the case of vomiting, patient should receive a parenteral dose of 75 mg every eight hours until vomiting stops. In the case of an acute crisis, pa tameka should receive 100 mg IV or IM with volume expansion and repeat q. 6 hours if necessary untilable to take p.o. medicines. 3. Hypertriglyceridemia: Patient to remain on niacin and if possible, increase dose if indicated. Continue to monitor lipid levels periodically. 4. Status post craniopharyngioma resection: Patient is requested to follow up with his pediatric neurosurgeon, Dr. Hilton Álvarez, in approximately one month. MRI scan in early January suggested a question if there could be a small amount of residual tumor. Repeat study was completed the day before his transfer and final results are not available at the time of this dictation. 5. If patient returns to the [facility] at some point, patients previous primary care physician is Dr. Kris Drew, and return of care to his office should be reviewed with him. DISCHARGE MEDICATIONS: 1. Desmopressin 0.15 mg per G-tube q. 8 hours. 2. Colace 100-200 mg p.o. b.i.d. 3. Hydrocortisone 5 mg q.a.m., 10 mg q. noon and q. 5 PM. 4. Ibuprofen p.r.n. 5. Lactulose 30 cc p.o. q. 12 hours p.r.n. 6. Synthroid 150 mcg p.o. q.a.m. 7. Lorazepam 0.5-1 mg per PEG b.i.d. for moderate to severe agitation p.r.n. 8. Robaxin 500-1000 mg p.o. q. 6 hours p.r.n. 9. Ritalin 15 mg q.a.m., 5 mg q.p.m. 10. Niacin 75 mg p.o. t.i.d. with meals. 11. Omeprazole oral syringe 40 mg per PEG b.i.d. 12. Risperidone 1 mg p.o. q.p.m. 13. Sertraline 50 mg p.o. q.a.m. 14. Ultram 50-100 mg p.o. q. 6 hours p.r.n. ALLERGIES: LOPID. Signed by Allison Alarcon MD 03/29/2005 09:05 Armand Alarcon, Sky Alarcon MD Allison Alarcon MD - Allison Alarcon MD A - mt Job ID: [id number] Document ID: [id number] cc: MD Kris Mccauley MD Christa M Zehle, MD Paul James Zimakas, MD *Floresita Ramos MD, [facility], [address], [place] [id number] documented in this encounter Discharge Disposition Disposition Code Departure Means Destination Nursing Facility (Skilled) documented in this encounter Progress Notes * Allison Alarcon MD - 03/28/2005 0000 EDT INPATIENT PROGRESS NOTE PT LOC: F002 Service Date: 03/28/2005 DIAGNOSIS: Status post cerebrovascular accident/craniopharyngioma resection. SUBJECTIVE: Miguel Angel is stable this morning after undergoing an MRI with sedation yesterday. He deniesany right ear pain. He denies any headache. He is indicating an understandingof the plan for transfer today. His mom is here and present and remains supportive. OBJECTIVE: Vital signs are stable. Affect is pleasant. Patient remains cooperative. Otoscopic exam shows that he has some resolving dry blood in his ear canal. Tympanic membrane is visualized and within normal limits. The patient continues with mild left hemiparesis. Yes/no appropriate and dysarthric verbal response. ASSESSMENT: The patient remains medically stable with continued neurologic deficits. [facility] that will be his primary physician there yesterday. PLAN: 1. Discharge from our services. 2. Transfer to [facility]. 3. Dictation of discharge summary. (Discharge work, greater than 30 minutes.) Signed by Allison Alarcon MD 03/29/2005 08:45 Sky Hollingsworth MD Allison Alarcon MD - Allison Alarcon MD P - lr Job ID: [id number] Document ID: [id number] cc: * Raleigh Castañeda MD - 03/28/2005 0000 EDT INPATIENT PROGRESS NOTE PT LOC: F002 Service Date: 03/28/2005 Night sheets reviewed. Patient tolerating the therapy program. Vital signs are stable. Patient is afebrile. Medical status is suitable to continue full program activities. Signed by Raleigh Castañeda MD 04/01/2005 13:54 Pipe Corey MD Raleigh Castañeda MD - Raleigh Castañeda MD A - mt Job ID: [id number] Document ID: [id number] cc: * Allison Alarcon MD - 03/27/2005 0000 EDT INPATIENT PROGRESS NOTE PT LOC: F002 Service Date: 03/27/2005 DIAGNOSIS: Status post cerebrovascular accident/craniopharyngioma resection. SUBJECTIVE: Patient seen pre and post-MRI with sedation. Postprocedure, Miguel Angel is indicating he does have some right ear canal discomfort. Mom states overall things went well but she is concerned about the blood from his ear canal. OBJECTIVE: Vital signs are stable. Affect is essentially unchanged. Miguel Angel participating and responding to calmquestions and directions. Right otoscopic exam shows some monica blood in the ear canal. Polystyrenebeads that were taken out of the ear canal were sent back in a small container. This procedure was done by ENT while he over at the MRI facility. Neuro exam otherwise stable. ASSESSMENT: The patient is status post MRI and ENT procedure. Resolving bleeding from extraction in the right ear canal. Patient appears appropriate to resume full program. He is to resume all of his meds with his dinnertime dose. Discussion with mom over the procedure, the findings and plan for Robintransfer tomorrow. Transfer forms completed. [place] and [place]. PLAN: 1. Recheck sodium tomorrow. 2. Anticipating transfer to an out of state facility tomorrow morning. (Additional extended services in preparation for his discharge with preparation of transfer forms and communication to outside facilities and discussion with mom greater than 35 minutes.) Signed by Allison Alarcon MD 03/29/2005 08:45 Sky Hollingsworth MD Allison Alarcon MD - Allison Alarcon MD A - mt Job ID: [id number] Document ID: [id number] cc: * Raleigh Castañeda MD - 03/27/2005 0000 EDT INPATIENT PROGRESS NOTE PT LOC: F002 Service Date: 03/27/2005 Mr. Burgos is 14 year old recovering from transsphenoidal resection of pituitary tumor with resultsof panhypopituitarism and stroke syndrome. Medical issues also include hypertriglyceridemia. Current temperature is 37.2. Pulse 111. Respirations 20. Blood pressure 148/72. Cardiac rhythm is regular. Lung medellin are clear. Abdomen is obese and soft. Skin is warm and dry. JVD not visible. ASSESSMENT AND PLAN: Continue multihormonal support for panhypopituitarism. Continue full poststroke rehab activities. Signed by Raleigh Castañeda MD 04/01/2005 13:54 Pipe Corey MD Raleigh Castañeda MD - Raleigh Castañeda MD A - chelle Job ID: [id number] Document ID: [id number] cc: * Allison Alarcon MD - 03/26/2005 0000 EDT INPATIENT PROGRESS NOTE PT LOC: F002 Service Date: 03/26/2005 DIAGNOSIS: Status post CVA/status post craniopharyngioma resection. SUBJECTIVE: The patient with variable affect through the day. Became more verbal and more restless and agitated in the afternoon. After questioning with staff support, the patient indicating he was hungry. He denies any pain. OBJECTIVE: Vital signs are stable, affect varies from calm to agitated. Right hemiparesis mild. Speech remains dysarthric. No significant swelling in extremities. LABORATORY DATA: Sodium 140. TEAM ROUNDS: The patients present functional status, discharge goals, and barriers reviewed. patient has been reported as being much more talkative in the morning, doing well with therapy participation and cooperation. Social work confirms the patient will be transferred to [facility] on . ASSESSMENT: patient status post CVA with craniopharyngioma. The patient still has difficulty calming himself and communicating needs appropriately when he gets more anxious or frustrated. Final details of MRI planned for tomorrow confirmed with the floor personal secretary. Also discussed with ENT for them to evaluate him for foreign bodies in his right ear canal. [facility] Sodium levels are showing good control. We will recheck them again morning just before he is transported, as he is going to have a stretch of NPO time in the middle of the day tomorrow. PLAN: 1. Check sodium on . 2. Proceed with MRI planned for tomorrow. ENT consult called for the patient to be evaluated tomorrow for small foreign bodies in his right ear canal. (35 minutes total time, greater than 50% direct discussion of care management issues with team and discussion with patient and review of medical plan with mom). Signed by Allison Alarcon MD 03/27/2005 17:54 Sky Hollingsworth MD Allison Alarcon MD - Allison Alarcon MD A - re Job ID: [id number] Document ID: [id number] cc: * Raleigh Castañeda MD - 03/26/2005 0000 EDT INPATIENT PROGRESS NOTE PT LOC: F002 Service Date: 03/26/2005 Mr. Burgos is a 14-year-old status post transsphenoidal resection of craniopharyngioma with resultant panhypopituitarism. The patient was seen in followup by ENT and they removed two polystyrene beads from the right ear without complication. Temperature is 36.3, pulse 100, respirations 18, blood pressure 122/74. Cardiac rhythm is regular. Lung medellin are clear. Abdomen is soft. JVD is not visible. ASSESSMENT/PLAN: Cardiorespiratory status stable. Continue multi hormonal support for panhypopituitarism. Signed by Raleigh Castañeda MD 04/01/2005 13:54 Pipe Corey MD Raleigh Castañeda MD - Raleigh Castañeda MD A - ss Job ID: [id number] Document ID: [id number] cc: * Allison Alarcon MD - 03/25/2005 0000 EDT INPATIENT PROGRESS NOTE PT LOC: F002 Service Date: 03/25/2005 DIAGNOSIS: Status post bilateral cerebrovascular accidents. SUBJECTIVE: Patient states he is not having any pain or discomfort this morning. His night went well. He had a good breakfast. Nursing had noted some slight brownish liquid draining from right ear last night. OBJECTIVE: Vital signs are stable. Affect is pleasant, although through the day patient had more verbalizations and was more restless intermittently. Otoscopic exam just showed some soft wax, nonoccluding, in both ear canals. the right ear, there are two small, white, sort of roundish plastic objects visualized. ASSESSMENT: Patient is status post CVA. Observed participating later in therapies. Discussed ear exam with Dr. Castañeda, who feels that what we are seeing may be a residual tube just laying in the canal. We will check with ENT to see whether they had attempted to remove this as I believe it has been visualized inthe past. Otherwise, patient seemed stable. PLAN: 1. I have completed anesthesia request form in anticipation of MRI on Friday. 2. Continue with full program. Signed by Allison Alarcon MD 03/27/2005 17:54 Sky Hollingsworth MD Allison Alarcon MD - Allison Alarcon MD A - mt Job ID: [id number] Document ID: [id number] cc: * Raleigh Castañeda MD - 03/25/2005 0000 EDT INPATIENT PROGRESS NOTE PT LOC: F002 Service Date: 03/25/2005 Mr. Burgos is a 14-year-old recovering from transsphenoidal resection of craniopharyngioma with resulting stroke syndrome and panhypopituitarism. The patient has been showing of discomfort in the right ear. Examination reveals what appears to be two circular elements of plastic. This may be visibleportions of a tympanostomy tube.However, the patient also had at one point placed polystyrene beadsfrom a stuffed toy into his ear. I will ask Ear, Nose, and Throat to evaluate his ear and remove the foreign material as needed. Temperature 35.6, pulse 83, respirations 18, blood pressure 118/65. Cardiac rhythm is regular. Lung medellin are clear. Abdomen is soft. JVD not visible. Ear findings asnoted above. ASSESSMENT AND PLAN: 1. Continue multihormonal support. 2. Continue full program activities. 3. ENT followup for foreign material in the right ear canal. Signed by Raleigh Castañeda MD 04/01/2005 13:53 Pipe Corey MD Raleigh Castañeda MD - Raleigh Castañeda MD P - lr Job ID: [id number] Document ID: [id number] cc: * Allison Alarcon MD - 03/24/2005 0000 EDT INPATIENT PROGRESS NOTE PT LOC: F002 Service Date: 03/24/2005 DIAGNOSIS: Bilateral cerebrovascular accidents. The patient was seen and examined today. Vital signs are stable and the patient is afebrile. No newclinical issues were identified, and the patient is to continue in the rehabilitation program. Signed by Allison Alarcon MD 03/25/2005 15:45 Sky Hollingsworth MD Allison Alarcon MD - Allison Alarcon MD A - mt Job ID: [id number] Document ID: [id number] cc: * Allison Alarcon MD - 03/23/2005 0000 EDT INPATIENT PROGRESS NOTE PT LOC: F002 Service Date: 03/23/2005 DIAGNOSIS: Bilateral CVAs/status post craniopharyngioma resection. The patient was seen and examined today. Vital signs are stable and the patient is afebrile. No newclinical issues were identified, and the patient is to continue in the rehabilitation program. Signed by Allison Alarcon MD 03/25/2005 15:46 Sky Hollingsworth MD Allison Alarcon MD - Allison Alarcon MD A - re Job ID: [id number] Document ID: [id number] cc: * Raleigh Castañeda MD - 03/22/2005 0000 EDT INPATIENT PROGRESS NOTE PT LOC: F002 Service Date: 03/22/2005 Mr. Burgos is a 14-year-old recovering from stroke. Medical issues include panhypopituitarism. Thisis secondary to transsphenoidal resection of a pituitary tumor. Current temperature is 37.5, heart rate 100, respirations 20, blood pressure 110/83. Cardiac rhythm is regular. Lung medellin are clear. Abdomen is soft. JVD is not visible. ASSESSMENT AND PLAN: Continue program activities with ongoing monitoring of cardiopulmonary status.Continue multihormonal support. Signed by Raleigh Castañeda MD 04/01/2005 13:53 Pipe Corey MD Raleigh Castañeda MD - Raleigh Castañeda MD P - lr Job ID: [id number] Document ID: [id number] cc: * Wicho Carlton MD - 03/22/2005 0000 EDT INPATIENT PROGRESS NOTE PT LOC: F002 Service Date: 03/22/2005 Miguel Angel is offering no complaints today. He remains minimally vocal. Vital signs stable. Afebrile. Heart regular. Lungs clear. Abdomen soft, nontender. Extremity range of motion within functional limits. IMPRESSION: Craniopharyngioma resection: Continue present therapy program. We are anticipating discharge later next week.Some discussion is occurring about possible MRI before discharge; however, I am not certain it is going to occur. Signed by Wicho Carlton MD 04/04/2005 10:44 Nadine Garcia MD Wicho Carlton MD - Wicho Carlton MD P - lr Job ID: [id number] Document ID: [id number] cc: * Allison Alarcon MD - 03/21/2005 0000 EDT INPATIENT PROGRESS NOTE PT LOC: F002 Service Date: 03/21/2005 DIAGNOSIS: Bilateral cerebrovascular accidents/panhypopituitarism. SUBJECTIVE: Miguel Angel responsive and awake this morning. Denying any pain. Participating in therapies. OBJECTIVE: Vital signs are stable. Affect pleasant. Left hemiparesis continues. Verbal output remains with dysarthria. ASSESSMENT: CVA with panhypopituitarism. Anticipated discharge today to [facility] has been delayed to administrative and approval issues from the Medicaid system per our psychologist social. Mom has been informed. In that the patientdischarge is being delayed at this point, I reviewed his neurosurgical needswith Dr. Álvarez, who states we could proceed with an MRI slightly early to avoid trying to reschedule him back. The patient does need sedation for MRI and it is a fairly complex study. Mom agrees to having the study done but feels she absolutely needs to be there and help to support Miguel Angel throughthe testing and getting his sedation. Aspects of his scheduling needs and how to coordinate this were covered at length with mold tooling technician today. Reviewed with mom availability. PLAN: 1. MRI cannot be scheduled before Friday at 2 in order to coordinate with moms dialysis scheduleand when she would be available. 2. MRI will set this up coordinated with anesthesia. 3. Prep orders written in the chart. 4. Full panel of labs tomorrow checking liver function and sodium. 5. We will be anticipating hopefully all approval issues will be cleared by next and patient will be able to be transferred to [facility] on that day. (Fifty minutes total time, greater than 50% direct patient and family discussion of issues as aboveand care coordination with team.) Signed by Allison Alarcon MD 03/23/2005 16:47 Sky Hollingsworth MD MD Judy Orellana: 03/21/2005 - Allison Alarcon MD A - mt Job ID: [id number] Document ID: [id number] cc: * Raleigh Castañeda MD - 03/21/2005 0000 EDT INPATIENT PROGRESS NOTE PT LOC: F002 Service Date: 03/21/2005 Mr. 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 Additional medical issues include hypertriglyceridemia and fatty liver. The patient remains on hydrocortisone, Synthroid, and DDAVP for pituitary hormonal replacement. Vital signs are stable. Fever is not present. Cardiac rhythm is regular. Lung medellin are clear. Abdomen is obese and soft. Skin is warm and dry. JVD not visible. ASSESSMENT AND PLAN: Continue full program activities. Continue multihormonal support and niacin therapy. Signed by Raleigh Castañeda MD 04/01/2005 13:53 Pipe Corey MD Raleigh Castañeda MD - Raleigh Castañeda MD P - lr Job ID: [id number] Document ID: [id number] cc: * Allison Alarcon MD - 03/20/2005 0000 EDT INPATIENT PROGRESS NOTE PT LOC: F002 Service Date: 03/20/2005 DIAGNOSIS: Bilateral cerebrovascular accidents. SUBJECTIVE: Patient this morning is participating in therapies. He is not indicating he has any pain. He reports good sleep. He nods if he feels he is drinking well. OBJECTIVE: Vital signs are stable. Affect is pleasant, although he does tend to get sleepy through the day. Observed in therapies and does respond to cueing to use his left upper extremity, although he still has significant neglect there. He does have isolated function through the upper and lower extremity. No edema noted. No pain with his active range with his arm. Labs: Sodium 149. ASSESSMENT: Patient participating more fully in the rehab program. Still significant neuro deficits justifying ongoing therapies. Reviewed with social work that he has been approved and cleared for transfer to [facility] tomorrow. Mom is aware that this will go and social work is to talk to her later today. I spent time with Miguel Angel reviewing the plan and discussing the program we will be moving him to.He is not indicating any objection or concern or anxiety around this upon initial presentation. Team members informed that patient has been informed. We will continue to monitor his behavior through the afternoon in response to this. Nursing to clarify certain data regarding his PPD placed yesterday in terms of a lot number and expiration date. We will need to get this information from pharmacy. Discharge forms and transfer forms completed and clarified with team. (Additional extended services in preparation for discharge greater than 30 minutes with discussion and counseling with patient.) Signed by Allison Alarcon MD 03/21/2005 09:48 Sky Hollingsworth MD Allison Alarcon MD - Allison Alarcon MD A - mt Job ID: [id number] Document ID: [id number] cc: * Raleigh Castañeda MD - 03/20/2005 0000 EDT INPATIENT PROGRESS NOTE PT LOC: F002 Service Date: 03/20/2005 Miguel Angel is a 14-year-old recovering from stroke syndrome following resection of craniopharyngioma. Medical issues include panhypopituitarism and hypertriglyceridemia. He is showing relatively stable sodiums. Most recent reading was 149. Vital signs are stable. No fever is present. Cardiac rhythm is regular. Lung medellin are clear. Abdomen is soft. JVD is not visible. ASSESSMENT AND PLAN: 1. Continue full program activities. 2. Continue multihormonal support. Signed by Raleigh Castañeda MD 04/01/2005 13:54 Dena Castañeda, MDDevangelista Castañeda MD Raleigh Castañeda MD - Raleigh Castañeda MD A - re Job ID: [id number] Document ID: [id number] cc: * Allison Alarcon MD - 03/19/2005 0000 EDT INPATIENT PROGRESS NOTE PT LOC: F002 Service Date: 03/19/2005 DIAGNOSIS: Status post bilateral cerebrovascular accidents with panhypopituitarism. SUBJECTIVE: Patient seen in his room today. Drinking with encouragement. Indicating he is not having pain at the moment, although briefly before this he was indicating to the nurse that his low back and his leftleg were sore a bit. He took Tylenol. OBJECTIVE: Vital signs are stable. Affect is pleasant. He does appear tired at different times during the day.Lungs are clear. Pulse is regular. Using left and right upper extremity with more isolated functionon a steady basis. Team rounds: Patients present functional status, discharge goals and barriers reviewed. The patienthas made steady continued gains. He is still generally a two-person with transfers and mobility forsafety reasons for the patient at this point. For the most part, he functions with two-person that they have a second person for backup in case he shifts quickly or shows impulsivity. He has not had any aggressive or abusive behaviors with therapists. He has been cooperative and appropriate. Staff describing more communication fromthe patient and more initiation of communication. Social work reports patient has been accepted at [facility]. This final plan is to be reviewed with mom. Miguel Angel has not yet been informed. Staff are videotaping sessions to help give the next staff a baseline of where his sessions have been at and what to continue to work with. [facility] has also asked for a PPD to be checked. ASSESSMENT: Patient with bilateral CVAs. He has continued to make steady gains. Behaviorally, he is in a much better place. Reviewed his fluid intake over the last four days and he has had several days where he has not been fully supplemented to 2 liters. Nursing staff will make a note of this. Met with the patientprimary care physician from the [facility], Dr. Drew, who was here to see him. Reviewed the medical issues on him at present and focus of care. Dr. Drew indicates he feels he has made excellent progress. At present, there still is not enough staff or support in the [facility] to return him to a home environment. PLAN: 1. PPD to be placed today. 2. Social work working on contacting the mom, who is out of the hospital today, to start establishing a firm plan for when patient will be transferred to [facility] potentially or next Friday. 3. Continue all present medications. 4. Reinforce patient needs to have between 2 to 2.5 liters in fluids per day. Forty minutes total time, greater then 50% care coordination with team. Signed by Allison Alarcon MD 03/20/2005 08:43 Sky Hollingsworth MD Allison Alarcon MD - Allison Alarcon MD A - mt Job ID: [id number] Document ID: [id number] cc: * Raeligh Castañeda MD - 03/19/2005 0000 EDT INPATIENT PROGRESS NOTE PT LOC: F002 Service Date: 03/19/2005 Mr. Burgos is a 14-year-old with stroke following transsphenoidal resection of craniopharyngioma. Medical complications included panhypopituitarism. Other issues include hypertriglyceridemia and fatty liver. Vital signs are stable. Patient is not febrile. Cardiac rhythm is regular. Lung medellin are clear. Abdomen is soft. JVD not visible. ASSESSMENT AND PLAN: Continue full multihormonal support for panhypopituitarism. Continue niacin for treatment of elevate triglyceride levels and fatty liver. Signed by Raleigh Castañeda MD 03/27/2005 17:21 Pipe Corey D Castañeda, MD Raleigh Castañeda MD - Raleigh Castañeda MD A - mt Job ID: [id number] Document ID: [id number] cc: * Allison Alarcon MD - 03/18/2005 0000 EDT INPATIENT PROGRESS NOTE PT LOC: F002 Service Date: 03/18/2005 DIAGNOSIS: Bilateral cerebrovascular accidents/panhypopituitarism. The patient was seen and examined today. Vital signs are stable and the patient is afebrile. No newclinical issues were identified, and the patient is to continue in the rehabilitation program. Labs: Sodium 148. PLAN: Continue present program. Signed by Allison Alarcon MD 03/19/2005 11:19 ACarol Sky Flowers MD Allison Alarcon MD - Allison Alarcon MD A - mt Job ID: [id number] Document ID: [id number] cc: * Raleigh Castañeda MD - 03/18/2005 0000 EDT INPATIENT PROGRESS NOTE PT LOC: F002 Service Date: 03/18/2005 Mr. Burgos is a 14-year-old recovering from stroke which was a complication of resection of craniopharyngioma. Medical issues now include panhypopituitarism. He is participating actively in the therapy program. Vital signs are stable, he is afebrile. Cardiac rhythm is regular. Lung medellin are clear. Abdomen is obese and soft. Skin is warm and dry. ASSESSMENT AND PLAN: 1. Continue full program activities. 2. Continue multihormonal support in the setting of panhypopituitarism. Signed by Raleigh Castañeda MD 03/27/2005 10:30 Pipe Corey MD Raleigh Castañeda MD - Raleigh Castañeda MD A - re Job ID: [id number] Document ID: [id number] cc: * Raleigh Castañeda MD - 03/17/2005 0000 EDT INPATIENT PROGRESS NOTE PT LOC: F002 Service Date: 03/17/2005 Mr. Burgos is a 14-year-old recovering from transsphenoidal resection of craniopharyngioma with resulting stroke. 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 Other issues include fatty liver with hypertriglyceridemia. Today, temperature is 36.7, pulse 90, respirations 20, blood pressure 124/84. Cardiac rhythm is regular. Lung medellin are clear. Abdomen is obese and soft. Skin warm and dry. JVDis not visible. ASSESSMENT/PLAN: Continue full program activities. Continue hormonal support, including DDAVP, hydrocortisone, and Synthroid. Continue niacin for treatment of hypertriglyceridemia. Signed by Raleigh Castañeda MD 03/27/2005 08:34 Pipe Corey MD Raleigh Castañeda MD - Raleigh Castañeda MD A - ss Job ID: [id number] Document ID: [id number] cc: * Raleigh Castañeda MD - 03/16/2005 0000 EDT INPATIENT PROGRESS NOTE PT LOC: F002 Service Date: 03/16/2005 Mr. Burgos is a 14-year-old status post transsphenoidal resection of craniopharyngioma with resulting stroke and panhypopituitarism. He is participating actively in the therapy program. Vital signs are stable. He is afebrile. Cardiac rhythm is regular. Lung medellin are clear. Abdomen is soft and obese. JVD is not visible. ASSESSMENT AND PLAN: Continue full program activities following stroke. Continue multi-hormonal support for panhypopituitarism. Signed by Raleigh Castañeda MD 03/26/2005 10:01 Pipe Corey MD Raleigh Castañeda MD - Raleigh Castañeda MD P - lr Job ID: [id number] Document ID: [id number] cc: * Wicho Carlton MD - 03/15/2005 0000 EDT INPATIENT PROGRESS NOTE PT LOC: F002 Service Date: 03/15/2005 Miguel Angel is feeling apparently well today. He is calm and participating with therapies. Vital signs are stable, afebrile. Heart is regular. Lungs are clear. Abdomen is soft and nontender, bowel sounds present. Calves are soft and nontender. Neurologic: Without change. IMPRESSION: Craniopharyngioma resection: Continue present therapy program. He is waiting on placement. Signed by Wicho Carlton MD 03/18/2005 08:28 Nadine Garcia MD Wicho Carlton MD - Wicho Carlton MD P - re Job ID: [id number] Document ID: [id number] cc: * Raleigh Castañeda MD - 03/15/2005 0000 EDT INPATIENT PROGRESS NOTE PT LOC: F002 Service Date: 03/15/2005 Mr. Burgos is a 14-year-old with stroke syndrome following surgical resection of craniopharyngiomaThis was done by the transsphenoidal approach. Problems include panhypopituitarism and hypertriglyceridemia. He is participating actively in the therapy program. Vital signs are stable. He is afebrile. Cardiac rhythm is regular. Lung medellin are clear. Abdomen is obese and soft. Skin is warm and dry. ASSESSMENT AND PLAN: Continue full program activities. Continue multi-hormonal support. Continue niacin treatment. Signed by Raleigh Castañeda MD 03/23/2005 12:05 Pipe Corey MD Raleigh Castañeda MD - Raleigh Castañeda MD A - lr Job ID: [id number] Document ID: [id number] cc: * Allison Alarcon MD - 03/14/2005 0000 EDT INPATIENT PROGRESS NOTE PT LOC: F002 Service Date: 03/14/2005 DIAGNOSIS: Bilateral cerebrovascular accidents/panhypopituitarism. SUBJECTIVE: Miguel Angel up and participating in therapies. Therapies reporting less sleepiness this morning. Continues to participate with walking tasks. OBJECTIVE: Vital signs are stable. Affect is calm. Patient is nodding this morning but not responding to me much verbally. Continues to keep eyes closed. Left hemiparesis. Mild increase in isolated function. Labs: Sodium 145. ASSESSMENT: Patient with bilateral CVAs. Behavioral improvements through the week. Ativan not being given before therapies and patient now seems to be doing quite adequately. Sodium slightly improved today versus yesterday without any focused adjustments. PLAN: 1. Continue with present medications. 2. Recheck sodium by fingerstick on Friday. Signed by Allison Alarcon MD 03/15/2005 13:08 Sky Hollingsworth MD Allison Alarcon MD - Allison Alarcon MD A - mt Job ID: [id number] Document ID: [id number] cc: * Raleigh Castañeda MD - 03/14/2005 0000 EDT INPATIENT PROGRESS NOTE PT LOC: F002 Service Date: 03/14/2005 Mr. Burgos is a 14-year-old with stroke syndrome following surgical resection of a craniopharyngioma. Medical issues include panhypopituitarism and hypertriglyceridemia. He is participating actively in the therapy program. Current temperature is 37.2, pulse 89, respirations 18, blood pressure 101/80. Cardiac rhythm is regular. Lung medellin are clear. Abdomen is soft; JVD is not visible. Assessment/plan: Continue full program activities with ongoing provision of multihormonal support and niacin therapy. Signed by Raleigh Castañeda MD 03/21/2005 16:08 Pipe Corey MDDennis D Woods, MD Raleigh Castañeda MD - Raleigh Castañeda MD P - mh Job ID: [id number] Document ID: [id number] cc: * Allison Alarcon MD - 03/13/2005 0000 EDT INPATIENT PROGRESS NOTE PT LOC: F002 Service Date: 03/13/2005 DIAGNOSIS: Bilateral CVAs/panhypopituitarism. SUBJECTIVE: The patient is up in chair, but is groggy. Staff reporting he has been sleepier today. Participated reasonably in therapies this morning without Ativan. OBJECTIVE: BP 129/59, pulse 133. Lungs are clear. LABORATORY DATA: Sodium 152. PLAN: Will plan to have labs for sodium checked again tomorrow. Signed by Allison Alarcon MD 03/14/2005 08:53 ACarol Sky Flowers MD Allison Alarcon MD - Allison Alarcon MD A - re Job ID: [id number] Document ID: [id number] cc: * Raleigh Castañeda MD - 03/13/2005 0000 EDT INPATIENT PROGRESS NOTE PT LOC: F002 Service Date: 03/13/2005 Mr. Burgos is a 14-year-old with stroke syndrome following resection of craniopharyngioma. Medical issues include panhypopituitarism and hypertriglyceridemia. Heis on multiple medications including desmopressin, hydrocortisone, and Synthroid. He is also on niacin for treatment of his triglyceride levels. He does have associated fatty liver infiltration. Current temperature is 37.9, pulse 100, respirations 16, blood pressure 129/59. Cardiac rhythm is regular. Lung medellin are clear. Abdomen is obese and soft. JVD is not visible. Assessment/plan: Continue program activities with ongoing multidrug support, as described above. Signed by Raleigh Castañeda MD 03/21/2005 16:09 Pipe Corey MDDennis D Woods, MD Raleigh Castañeda MD - Raleigh Castañeda MD P - mh Job ID: [id number] Document ID: [id number] cc: * Allison Alarcon MD - 03/12/2005 0000 EDT INPATIENT PROGRESS NOTE PT LOC: F002 Service Date: 03/12/2005 DIAGNOSIS: Bilateral cerebrovascular accidents, status post craniopharyngioma resection/panhypopituitarism. SUBJECTIVE: Patient is up and participating this morning. He is described as having good sleeping at night. Momis concerned that it is time to get reevaluated by Dr. Álvarez and repeat his MRI, which was done two months ago. Her understanding was that it was going to be repeated in one month per recommendations. Miguel Angel indicating he has some discomfort in his left hand/wrist area today. Also reporting he is hungry. OBJECTIVE: Vital signs are stable. Affect is somewhat pleasant at this time. For the most part remains cooperative through the day, although occasionally he has loud vocalizations. Needs to be cued to be specific about needs. Left upper extremity is mildlyswollen through the hand and the forearm. Mild left wrist restriction. No pain noted with forced MCP flexion that was clearly localized to that area. Willfollow commands to extend his arm grasp. He has more difficulty with finger extension. His left lower extremity he will isolate knee and ankle function. Team rounds: Patients present functional status, discharge goals and barriers reviewed. He is getting an hour of cotreatment therapies in the morning. Since being on risperidone, increased Zoloft andreadjusted Ritalin doses, he has been progressively better behaviorally. No outbursts or striking out reported. He will get frustrated if needs are not met initially and needs to be cued to use his words. ASSESSMENT: Patient with bilateral CVAs. Contacted Dr. Álvarez, who states an MRI needs to be done at the three-month marcela, which would be approximately the end of the first week of April. If patient is accepted for placement in a facility sooner, then we would repeat the MRI prior to discharge and Dr. Álvarez would see patient in followup before discharge. Discussed with team trying to hold Ativan in the morning instead of giving it pre-therapies since he is having times of lethargy. Overall pain medication use has dropped off dramaticallyat night since using risperidone. PLAN: 1. Continue full program and present medication management. 2. Clarify Ativan to be used only for moderate to severe agitation. 3. Discussed with mom her concerns and present observations. 4. Social work continues to be in touch with outside case management team and meeting is planned for next week. Thirty-five minutes total time, greater than 50% direct patient and family discussion and care coordination with team. Signed by Allison Alarcon MD 03/14/2005 08:53 Sky Hollingsworth MD Allison Alarcon MD - Allison Alarcon MD A - mt Job ID: [id number] Document ID: [id number] cc: * Raleigh Castañeda MD - 03/12/2005 0000 EDT INPATIENT PROGRESS NOTE PT LOC: F002 Service Date: 03/12/2005 Mr. Burgos is a 14-year-old recovering from stroke syndrome which resulted following resection of acraniopharyngioma. Medical issues include panhypopituitarism and hypertriglyceridemia. He is participating actively in the therapy program. Vital signs are stable. He is afebrile Neck: No JVD. Cardiovascular: Regular without murmur. Lungs:Clear. Abdomen: Soft and non-tender without liver or spleen enlargement. Bowel sounds: Normal. Extremities: Free of edema. Skin: Warm and dry. ASSESSMENT AND PLAN: Continue full post-stroke rehab activities. Continue multihormonal support therapy. Continue niacinfor treatment of hypertriglyceridemia. Signed by Raleigh Castañeda MD 03/20/2005 08:05 Pipe Corey MD Raleigh Castañeda MD - Raleigh Castañeda MD P - mt Job ID: [id number] Document ID: [id number] cc: * Kris Thomas MD - 03/11/2005 0000 EDT INPATIENT PROGRESS NOTE PT LOC: F002 Service Date: 03/11/2005 The patient was seen and examined today. Vital signs are stable and the patient is afebrile. No newclinical issues were identified, and the patient is to continue in the rehabilitation program. He had another very good day yesterday. Signed by Kris Thomas MD 03/12/2005 16:36 Geovani Whitfield MDThomas J Zweber, MD Kris Thomas MD - Kris Thomas MD P - Job ID: [id number] Document ID: [id number] cc: * Kris Thomas MD - 03/10/2005 0000 EDT INPATIENT PROGRESS NOTE PT LOC: F002 Service Date: 03/10/2005 The patient was seen and examined today. Vital signs are stable and the patient is afebrile. No newclinical issues were identified, and the patient is to continue in the rehabilitation program. He has had a string of very good days. His function is improving substantially I have been told by several therapists. Signed by Kris Thomas MD 03/12/2005 16:36 Geovani Whitfield MDThomas J Zweber, MD Kris Thomas MD - Kris Thomas MD P - Job ID: [id number] Document ID: [id number] cc: * Kris Thomas MD - 03/09/2005 0000 EDT INPATIENT PROGRESS NOTE PT LOC: F002 Service Date: 03/09/2005 The patient was seen and examined today. Vital signs are stable and the patient is afebrile. No newclinical issues were identified, and the patient is to continue in the rehabilitation program. Signed by Kris Thomas MD 03/12/2005 16:36 AThomas Geovani Trimble MDThomas J Zweber, MD Kris Thomas MD - Kris Thomas MD P - mh Job ID: [id number] Document ID: [id number] cc: * Wicho Carlton MD - 03/08/2005 0000 EDT INPATIENT PROGRESS NOTE PT LOC: F002 Service Date: 03/08/2005 Miguel Angel is offering no complaints today. He is going sailing with RT. Vital signs are stable, afebrile. Heart is regular. Lungs are clear. Abdomen is soft and nontender, bowel sounds present. Neurologic without change. IMPRESSION: 1. Craniopharyngioma resection: Continue present therapy program. 2. Continue to monitor sodium intermittently. 3. Continue pursuing alternative therapies such as RT. Signed by Wicho Carlton MD 03/12/2005 15:36 Nadine Garcia MD Wicho Carlton MD - Wicho Carlton MD P - re Job ID: [id number] Document ID: [id number] cc: * Raleigh Castañeda MD - 03/08/2005 0000 EDT INPATIENT PROGRESS NOTE PT LOC: F002 Service Date: 03/08/2005 Mr. Burgos is a 14-year-old recovering from stroke syndrome following resection of craniopharyngioma. Medical issues include panhypopituitarism and hypertriglyceridemia. He has shown a good initial response to niacin therapy with significant interval lowering of his triglycerides. He is now on 75 mg three times daily with a follow-up study to be done in approximately two to three weeks. Current temperature is 37.2, pulse 93, respirations 18, blood pressure 144/73. Cardiac rhythm is regular. Lung medellin are clear. Abdomen is soft. JVD is not visible. Assessment/plan: Continue full program activities. Continue multi hormonal support for panhypopituitarism. Continue niacin for hypertriglyceridemia. Signed by Raleigh Castañeda MD 03/13/2005 11:21 Dena Castañeda, Pipe Castañeda, Pipe Castañeda MD Raleigh Castañeda MD - Raleigh Castañeda MD P - Job ID: [id number] Document ID: [id number] cc: * Raleigh Castañeda MD - 03/07/2005 0000 EDT INPATIENT PROGRESS NOTE PT LOC: F002 Service Date: 03/07/2005 Mr. 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 Other issues include hypertriglyceridemia and fattyliver infiltration. The patient did show a substantial improvement in triglyceride levels into the mid-300 range on low- dose niacin therapy. I have discussed this improved level with him and his mothe r today. Today, temperature is 37, pulse 90, respirations 20, blood pressure 122/70. Skin is warm and dry. Neck veins are not distended. Lung medellin are clear. Cardiac rhythm is regular. Abdomen is soft. ASSESSMENT AND PLAN: 1. Continue program activities. 2. Continue hormonal support. 3. Increase niacin to 75 mg t.i.d. with meals with follow-up triglyceride level and liver studies in approximately three weeks, sooner if symptoms arise. 4. Continue monitoring tolerance of the program. Signed by Raleigh Castañeda MD 03/07/2005 12:04 Pipe Corey MD Raleigh Castañeda MD - Raleigh Castañeda MD A - re Job ID: [id number] Document ID: [id number] cc: * Wicho Carlton MD - 03/07/2005 0000 EDT INPATIENT PROGRESS NOTE PT LOC: F002 Service Date: 03/07/2005 Miguel Angel has been much quieter over the last 24-48 hours. No clear complaints are noted. Vital signs are stable, afebrile. Heart regular, lungs clear. Abdomen is soft and nontender, bowel sounds are present. Neurologic: Stable. IMPRESSION: 1. Stroke: Continue present therapy program. 2. Craniopharyngioma resection: Continue to monitor clinically and monitor sodiums. He remains on DDAVP. Signed by Wicho Carlton MD 03/07/2005 14:52 Nadine Garcia MD Wicho Carlton MD - Wicho Carlton MD P - ss Job ID: [id number] Document ID: [id number] cc: * Raleigh Castañeda MD - 03/06/2005 0000 EDT INPATIENT PROGRESS NOTE PT LOC: F002 Service Date: 03/06/2005 Mr. Burgos is a 14 year old with stroke syndrome following resection of craniopharyngioma. Medical issues include panhypopituitarism hypertriglyceridemia. He also has known fatty liver. Triglyceride levels, although elevated, have improved significantly on relatively low-dose niacin, now currently at 342 down from 958. Current temperature is 36.8. Pulse 80. Respirations 16. Blood pressure 116/67. Cardiac rhythm is regular. Lung medellin are clear. Abdomen is soft. JVD is not visible. ASSESSMENT AND PLAN: Continue full program activities. Continue broad-based multihormonal support. Note that Free T4 and total T3 were within normal limits. Sodium is normal at 147, also noted to be normal renal function studies. Although triglycerides have improved, additional movement is quite possible. I am going to increasehis niacin from 50 to 100 mg with meals and we can anticipate a recheck within the next 2-3 weeks. Signed by Raleigh Castañeda MD 03/07/2005 08:25 Dena Castañeda, Pipe Castañeda, Pipe Castañeda MD Raleigh Castañeda MD - Raleigh Castañeda MD P - chelle Job ID: [id number] Document ID: [id number] cc: * Wicho Carlton MD - 03/06/2005 0000 EDT INPATIENT PROGRESS NOTE PT LOC: F002 Service Date: 03/06/2005 Miguel Angel is calmer this morning. He did require some Ativan yesterday secondary to agitation. Vital signs are stable, afebrile. Heart regular. Lungs clear. Abdomen soft, nontender. Bowel soundsare present. Calves soft and nontender. Neurologic unchanged. IMPRESSION: 1. Craniopharyngioma resection: Continue present therapy program. Subacute level services are beingpursued. He is making gains overall; however, they are certainly slow. 2. Hyponatremia: Continue to monitor intermittently. He remains on DDAVP. Signed by Wicho Carlton MD 03/07/2005 14:51 Gregor Carlton, Nadine Carlton MD Wicho Carlton MD - Wicho Carlton MD A - mt Job ID: [id number] Document ID: [id number] cc: * Wicho Carlton MD - 03/05/2005 0000 EDT INPATIENT PROGRESS NOTE PT LOC: F002 Service Date: 03/05/2005 Miguel Angel is offering no new complaints. Vital signs are stable, afebrile. Heart regular, lungs clear. Abdomen is soft and nontender, bowel sounds are present. Calves soft and nontender. IMPRESSION: Craniopharyngioma resection: Team meeting is attended today and case discussed with allteam members. Time spent: 35 minutes with greater than 50% of time in direct patient care. We are starting to pursue other disposition options, as well, as discussed with social media job titles. Apparently,his greige goods examiner is uncertain whether he can meet his ongoing needs. He is planning isha in the area in approximately two weeks and said he could tentatively make a decision at that point. Subacute level programs are being pursued and the patients mother is aware as I discussed with her. Signed by Wicho Carlton MD 03/05/2005 15:58 Ndaine Garcia MD Wicho Carlton MD - Wicho Carlton MD P - ss Job ID: [id number] Document ID: [id number] cc: * Raleigh Castañeda MD - 03/05/2005 0000 EDT INPATIENT PROGRESS NOTE PT LOC: F002 Service Date: 03/05/2005 Mr. Burgos is a 14-year-old from stroke. Medical issues include panhypopituitarism. This resulted from resection of craniopharyngioma. Medical issues also include fatty liver infiltration and hypertriglyceridemia. Current temperature is 36.8, pulse 72, respirations 20, blood pressure 124/82. Cardiac rhythm is regular. Lung medellin are clear. Abdomen is soft and mildly obese. JVD is not visible. ASSESSMENT AND PLAN: 1. Continue full program activities. 2. Continue multihormonal support. 3. Laboratory data has been requested for tomorrow to include measurement of liver tests, triglycerides, electrolytes, and thyroid hormonal status. Signed by Raleigh Castañeda MD 03/07/2005 08:25 Pipe Corey MD Raleigh Castañeda MD - Raleigh Castañeda MD A - re Job ID: [id number] Document ID: [id number] cc: * Raleigh Castañeda MD - 03/04/2005 0000 EDT INPATIENT PROGRESS NOTE PT LOC: F002 Service Date: 03/04/2005 Mr. Burgos is a 14-year-old with stroke syndrome and panhypopituitarism following resection of a craniopharyngioma. Other issues include hypertriglyceridemia. Temperature is 37, pulse 81, respirations 22, blood pressure 128/80. Cardiac rhythm is regular. Lung medellin are clear. Abdomen is soft. JVD is not visible. ASSESSMENT/PLAN: Cardiorespiratory status is stable. Continue full program activities. Continue current hormonal supportive therapy. Signed by Raleigh Castañeda MD 03/05/2005 12:20 Pipe Corey MD Raleigh Castañeda MD - Raleigh Castañeda MD A - ss Job ID: [id number] Document ID: [id number] cc: * Wicho Carlton MD - 03/04/2005 0000 EDT INPATIENT PROGRESS NOTE PT LOC: F002 Service Date: 03/04/2005 Miguel Angel appears to be more agitated over the last several days with uncertain etiology. Vital signs are stable, afebrile. Heart regular, lungs clear. Abdomen: G-tube is intact. Calves soft and nontender. Neurologic without change. IMPRESSION: 1. Craniopharyngioma resection: Continue present therapy program. industrial services worker is actively involved. I am of the understanding that outside agencies are going to be looking at him this week. 2. Hyponatremia: Continue to monitor intermittently. Signed by Wicho Carlton MD 03/05/2005 15:58 Nadine Garcia MD Wicho Carlton MD - Wicho Carlton MD P - ss Job ID: [id number] Document ID: [id number] cc: * Drew Larson MD - 03/03/2005 0000 EDT INPATIENT PROGRESS NOTE PT LOC: F002 Service Date: 03/03/2005 Miguel Angel is a 14-year-old gentleman status post craniopharyngioma resection and postoperative CVA withpanhypopituitarism. He has actually been doing reasonably well over the last couple of days with communication and mobility. He was very agitated this morning. After receiving a dose of Ativan and Percocet, he calmed down. His vitals were stable. When I saw Miguel Angel today, he was finally sleeping. He was sitting up in his wheelchair breathing comfortably. As he had a rather agitated morning, I decided not to wake him up today. We will continue to monitor his behaviors and treat him with Ativan as necessary for severe agitation. Otherwise, he will continue regular therapy services. Signed by Drew Larson MD 03/05/2005 12:09 Leroy Boateng MD Drew Larson MD - Drew Larson MD A - re Job ID: [id number] Document ID: [id number] cc: * Raleigh Castañeda MD - 03/02/2005 0000 EDT INPATIENT PROGRESS NOTE PT LOC: F002 Service Date: 03/02/2005 Mr. Burgos is a 14 year old status post resection of craniopharyngioma with resultant stroke syndrome and panhypopituitarism. He is participating actively in the therapy program. Other issues includehypertriglyceridemia. Vital signs are stable. Patient is afebrile. Cardiac rhythm is regular. Lung medellin are clear. Abdomen is soft. JVD not visible. ASSESSMENT AND PLAN: Cardiorespiratory statu is stable. Continue full hormonal therapy support. Signed by Raleigh Castañeda MD 03/05/2005 11:27 Pipe Corey MDDennis D Woods, MD Raleigh Castañeda MD - Raleigh Castañeda MD A - guard captain Job ID: [id number] Document ID: [id number] cc: * Raleigh Castañeda MD - 03/01/2005 0000 EDT INPATIENT PROGRESS NOTE PT LOC: F002 Service Date: 03/01/2005 Mr. Burgos is a 14 year old with stroke syndrome following resection of craniopharyngioma. Other issues include fatty liver and hypertriglyceridemia. He has hypopituitarismon the basis of surgical intervention. Current temperature is 36.6. Pulse 81. Respirations 18. Blood pressure 122/70. Cardiac rhythm is regular. Lung medellin are clear. Abdomen is soft. JVD not visible. ASSESSMENT AND PLAN: Cardiorespiratory status stable. Continue full program activities. Continue treatment DDAVP, hydrocortisone and Synthroid as well as niacin. Signed by Raleigh Castañeda MD 03/05/2005 11:27 Dena Castañeda, MDDevangelista Castañeda, Pipe Castañeda MD Raleigh Castañeda MD - Raleigh Castañeda MD A - chelle Job ID: [id number] Document ID: [id number] cc: * Wicho Carlton MD - 02/28/2005 0000 EDT INPATIENT PROGRESS NOTE PT LOC: F002 Service Date: 02/28/2005 Miguel Angel is offering no complaints today. Vital signs are stable, afebrile. Heart regular, lungs clear. Abdomen is soft and nontender, bowel sounds are present. Neurologic without change. IMPRESSION: Craniopharyngioma resection: He is doing better on present medications. We will maintain present meds at this time. Sodium level has remained stable and is 143 today. I will plan on checking him likely twice weekly. Liver functions remain elevated but stable. [facility]. Signed by Wicho Carlton MD 02/28/2005 14:08 Nadine Garcia MD Wicho Carlton MD - Wicho Carlton MD P - ss Job ID: [id number] Document ID: [id number] cc: * Raleigh Castañeda MD - 02/28/2005 0000 EDT INPATIENT PROGRESS NOTE PT LOC: F002 Service Date: 02/28/2005 Mr. Burgos is a 14-year-old with stroke syndrome following resection of craniopharyngioma. Medical issues include panhypopituitarism and hypertriglyceridemia. Current temperature is 36.8. Pulse 80. Respirations 18. Blood pressure 120/65. Cardiac rhythm is regular. Lung medellin are clear. Abdomen is obese and soft. Skin is warm and dry. JVD not visible. ASSESSMENT AND PLAN: Continue full program activities. Continue hormonal supplementation for hypopituitarism. Continue niacin for elevated triglyceride levels. Signed by Raleigh Castañeda MD 03/04/2005 15:54 Pipe Corey MD Raleigh Castañeda MD - Raleigh Castañeda MD A - mt Job ID: [id number] Document ID: [id number] cc: * Wicho Carlton MD - 02/27/2005 0000 EDT INPATIENT PROGRESS NOTE PT LOC: F002 Service Date: 02/27/2005 Mr. Burgos is more participatory in therapies. Appears to be doing much better with changes in medications. Vital signs are stable, afebrile. Heart regular, lungs clear. Abdomen is soft and nontender, bowel sounds are present. Calves soft and nontender. IMPRESSION: Craniopharyngioma resection: Continue present therapy program. Overall, doing much better. Consider checking sodium again later this week and, as discussed with Dr. Raleigh Castañeda, likely twice weekly will be sufficient. 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 Other issues include fatty liver and hypertriglyceridemia. Vital signs are stable, he is afebrile. Cardiac rhythm is regular. Lung medellin are clear. Abdomen is soft. JVD is not visible. ASSESSMENT AND PLAN: 1. Continue full program activities. 2. Continue monitoring electrolyte status, particularly sodium. Signed by Raleigh Castañeda MD 03/04/2005 10:09 Pipe Corey MD Raleigh Castañeda MD - Raleigh Castañeda MD A - re Job ID: [id number] Document ID: [id number] cc: * Wicho Carlton MD - 02/26/2005 0000 EDT INPATIENT PROGRESS NOTE PT LOC: F002 Service Date: 02/26/2005 Miguel Angel has been doing better over the last 48 hours, as relayed by the therapy staff. Vital signs are stable, afebrile. Heart regular, lungs clear. Abdomen is soft and nontender, bowel sounds are present. Laboratory studies pending. IMPRESSION: Craniopharyngioma resection: Continue present therapy program. He appears to be responding well with increased Ritalin dosing and with the addition of Risperdal. Teammeeting is attended today and case discussed with all team members. Time spent: 35 minutes with greater than 50% of time in direct patient care. Apparently, potential future caregivers are going to be involved in his carenext week, troubleshooting options for discharge. Signed by Wicho Carlton MD 02/28/2005 14:08 Nadine Garcia MD Wicho Carlton MD - Wicho Carlton MD A - ss Job ID: [id number] Document ID: [id number] cc: * Raleigh Castañeda MD - 02/26/2005 0000 EDT INPATIENT PROGRESS NOTE PT LOC: F002 Service Date: 02/26/2005 Miguel Angel is a 14-year-old recovering from stroke syndrome related to resection of craniopharyngioma. Problems include resultant panhypopituitarism. He also has fatty liver infiltration with severe hypertriglyceridemia. Current temperature is afebrile, heart rate 74, respirations 12, blood pressure 120/91. Cardiac rhythm is regular. Abdomen is obese and soft. Lung medellin are clear. Skin is warm and dry. Lower extremities are not edematous. ASSESSMENT AND PLAN: 1. Continue full program activities. 2. Continue niacin for treatment of hypertriglyceridemia. The patient remains on multihormonal replacement. Signed by Raleigh Castañeda MD 03/04/2005 10:09 Pipe Corey MD Raleigh Castañeda MD - Raleigh Castañeda MD A - re Job ID: [id number] Document ID: [id number] cc: * Wicho Carlton MD - 02/25/2005 0000 EDT INPATIENT PROGRESS NOTE PT LOC: F002 Service Date: 02/25/2005 Miguel Angel reportedly had some questionable increased restlessness at night with increasing Ritalin dosing. Risperdal apparently has also been started for agitation, as Dr. Alarcon had discussed with psychiatry. Vital signs are stable, afebrile. Heart regular, lungs clear. Abdomen is soft and nontender, bowel sounds are present. Calves soft and nontender. IMPRESSION: Craniopharyngioma resection: Continue present therapy program. Continue present medications for restlessness and to also achieve increased alertness. Disposition is being pursued. He is participating actively in therapies, although does not require the intensity at this point. Signed by Wicho Carlton MD 02/25/2005 12:45 Nadine Garcia MD Wicho Carlton MD - Wicho Carlton MD P - ss Job ID: [id number] Document ID: [id number] cc: * Raleigh Castañeda MD - 02/25/2005 0000 EDT INPATIENT PROGRESS NOTE PT LOC: F002 Service Date: 02/25/2005 Mr. Burgos is a [id number] from resection of craniopharyngioma with resultant stroke syndrome and panhypopituitarism. Other issues include fatty liver infiltration and hypertriglyceridemia. Vital signs are stable, the patient is afebrile. Cardiac rhythm is regular. Lung medellin are clear. Abdomen is soft. JVD is not visible. ASSESSMENT/PLAN: Continue multihormonal for support of panhypopituitarism. Continue low-dose niacinfor hypertriglyceridemia. Signed by Raleigh Castañeda MD 02/28/2005 15:20 Pipe Corey MD Raleigh Castañeda MD - Raleigh Castañeda MD P - ss Job ID: [id number] Document ID: [id number] cc: * Allison Alarcon MD - 02/24/2005 0000 EDT INPATIENT PROGRESS NOTE PT LOC: F002 Service Date: 02/24/2005 DIAGNOSIS: Status post bilateral CVAs/panhypopituitarism. SUBJECTIVE: Nursing had more difficult time with Miguel Angel last night. He had more restlessness and thrashing. He apparently had one attempt to get out of bed. We had tried to have him placed on frequents for part of the night, but this could not happen and he was on 1:1. this morning points to his forehead and nose if asked about any pain. The only pain descriptor he responds to with a nod is aching. It does not appear to be sharp. When asked about the back pain that he complains about at night, again, he seems to respond positively to aching. He is not verbalizing for me at the present time. OBJECTIVE: Vital signs are stable. The patient calm, seated in chair. No verbal outbursts or difficulties this morning, although nurses report he had a little bit more restlessness with getting upSomewhat sleepy this morning. LABORATORY DATA: Today sodium was 135. ASSESSMENT: patient with multiple neurologic impairments status post tumor resection. We have been increasing the Ritalin to try and improve energy, interaction, and focus. There seem to be during the evenings some more restlessness and agitation. I would like to try decreasing the p.m. dose of Nano eulalio but maintaining the morning dose and proceed with the plan for trial of risperidone in the evening, which was the next medication contingency to try and help with some of [place] behaviors. PLAN: 1. Change Ritalin to 15 mg q.a.m. and 5 mg q.p.m. 2. Start risperidone 1 mg p.o. q.p.m. 3. Labs as ordered for tomorrow. Allow Robaxin as a p.r.n. for discomfort at night. Signed by Allison Alarcon MD 02/26/2005 23:34 ACarol A AlarconSky MD Allison Alarcon MD - Allison Alarcon MD A - re Job ID: [id number] Document ID: [id number] cc: * Allison Alarcon MD - 02/23/2005 0000 EDT INPATIENT PROGRESS NOTE PT LOC: F002 Service Date: 02/23/2005 DIAGNOSIS: Bilateral cerebrovascular accidents, panhypopituitarism. SUBJECTIVE: The patient did have a bout of more restlessness last night. His pain was not resolved with ibuprofen, Tylenol, or one Ultram. Two Percocets were given with fairly good resultGeneral behavior during the day has been a bit better, although this morning the nurse notes again he still was a bit more agitated with starting to get him up with activities. OBJECTIVE: Exam remains quite stable overall with mild left hemiparesis, dysarthria, and blindness.He is responding to commands. LABS: Sodium 144 yesterday. ASSESSMENT: Patient status post cerebrovascular accidents. Ritalin has been increased but as of last night, it was given at bedtime as opposed to dinner,so we need to change this. Just started on an increased dose of Zoloft. We still may consider risperidone next week but would like to wait a few more days to watch episodes of restlessness on his present medication schedule. PLAN: 1. Lab panel for LFTs, triglycerides, and sodium scheduled for Friday. 2. Continue with his fluids between 2 to 2-1/2 liters. Input was assessed and he is staying relatively stable in that area. Signed by Allison Alarcon MD 02/26/2005 23:34 Sky Hollingsworth MD Allison Alarcon MD - Allison Alarcon MD P - lr Job ID: [id number] Document ID: [id number] cc: * Wicho Carlton MD - 02/22/2005 0000 EDT INPATIENT PROGRESS NOTE PT LOC: F002 Service Date: 02/22/2005 Miguel Angel is offering no new complaints this morning. He is quiet at this time. Vital signs are stable,afebrile. Heart regular, lungs clear. Abdomen is soft and nontender, bowel sounds are present. Calves soft and nontender. Neurologic unchanged. IMPRESSION: Stroke: Continue present therapy program. Dr. Alarcon had worked aggressively with the [facility] regarding potential disposition issues. Continue to monitor effect of change in DDAVP dosing. Signed by Wicho Carlton MD 02/25/2005 08:22 Nadine Garcia MD Wicho Carlton MD - Wicho Carlton MD P - ss Job ID: [id number] Document ID: [id number] cc: * Raleigh Castañeda MD - 02/22/2005 0000 EDT INPATIENT PROGRESS NOTE PT LOC: F002 Service Date: 02/22/2005 Mr. Burgos is a 14-year-old with stroke syndrome following resection of craniopharyngioma. Medical issues include fatty liver, hypertriglyceridemia and panhypopituitarism. Sodium today is 144. Vital signs are stable. Patient is afebrile. Neck veins are not distended. Skin is warm and dry. Cardiac rhythm is regular. Lung medellin are clear. Respiratory effort is not increased. Abdomen is soft. ASSESSMENT AND PLAN: Continue full program activities. Continue low-dose niacin therapy, which patient is tolerating well. Consider increasing the dosing next week. Signed by Raleigh Castañeda MD 02/25/2005 12:14 Pipe Corey MD Raleigh Castañeda MD - Raleigh Castañeda MD A - mt Job ID: [id number] Document ID: [id number] cc: * Allison Alarcon MD - 02/21/2005 0000 EDT INPATIENT PROGRESS NOTE PT LOC: F002 Service Date: 02/21/2005 DIAGNOSIS: Status post bilateral CVAs/status post craniopharyngioma resection/panhypopituitarism. SUBJECTIVE: The patient up in chair this morning. Not indicating any pain. Participating with briefphysical exam. OBJECTIVE: Vital signs are stable. The patient relatively significantly calmer through the day, at least not having the degree of verbal outbursts. Doing a bit better in terms of attention and focusing in his therapy time, which is now in the morning. patient has been on an increasing dose of Ritalin and therapies are reporting continued gradual positive change in terms of behavior. He still requi res the same of degree of assist. He is initiating much more function through his left arm and leg. Contacted the patients primary care physician, Dr. Drew, in the [place] area and reviewed with him the concerns regarding [facility]potential [facility] the [facility]. Details of agency management still being worked out. Sodium today 154. Reviewed the chart in terms of fluids in and past sodium levels. Discussed with Dr. Castañeda. He is recommending we increase the desmopressin dose back to 0.15, which would now be on a q.8 h. basis. PLAN: 1. Recheck sodium by fingerstick tomorrow. 2. Change in DDAVP dose as per Dr. Castañeda. 3. Ritalin 15 mg b.i.d. 4. Increase Zoloft to 50 mg. 5. Pertinent laboratoriesfaxed to Dr. Drew. (40 minutes total time, greater than 50% direct patient contact and care coordination with team andoutside providers). Signed by Allison Alarcon MD 02/23/2005 17:08 ACarol Sky Flowers MD Allison Alarcon MD - Allison Alarcon MD A - re Job ID: [id number] Document ID: [id number] cc: * Raleigh Castañeda MD - 02/21/2005 0000 EDT INPATIENT PROGRESS NOTE PT LOC: F002 Service Date: 02/21/2005 Mr. Burgos is a 14-year-old with stroke syndrome following resection of craniopharyngioma. He has resultant panhypopituitarism.Other issues include fatty liver infiltration and hypertriglyceridemia. He is currently on low-dose niacin. He developed a rash when treated with Lopid and this had to be di scontinued previously. The patient continues on hydrocortisone, Synthroid, anddesmopressin. Vital signs are stable, the patient is afebrile. Cardiac rhythm is regular. Lung medellin are clear. Abdomen is soft. JVD is not visible. ASSESSMENT/PLAN: Continue full program activities. Secondary to ongoing elevation of sodium, increase desmopressin slightly from 0.15 two doses and 0.1 one dose to 0.15 three doses per day. Continue monitoring electrolytes closely. Signed by Raleigh Castañeda MD 02/25/2005 10:13 Pipe Corey MD Raleigh Castañeda MD - Raleigh Castañeda MD A - ss Job ID: [id number] Document ID: [id number] cc: * Allison Alarcon MD - 02/20/2005 0000 EDT INPATIENT PROGRESS NOTE PT LOC: F002 Service Date: 02/20/2005 DIAGNOSIS: Status post bilateral cerebrovascular accidents, panhypopituitarism. SUBJECTIVE: Miguel Angel had more of an outburst last night with kicking against the side rail of the bed.One note states that he put his foot through and then raised the head of bed. Got some redness on his rosado. Another note states that the side rail was broken. After that event, the night seemed uneventful. OBJECTIVE: Vital signs are stable. Affect is calm this morning. The patient takes my hand easily. Cooperates with moving his left arm and his left leg. Movements are still slow, but he does have isolated function proximally and distally. Weight 169.8 pounds. Input: Approximately 2300 cc. Generally,in the last three to five days. Output continues to look a bit variable with not all output being captured. Bowel movement noted February 19, 2005. LABS: Sodium 153. ASSESSMENT: Patient with bilateral CVAs. Left hemiparesis continues to improve. The patient reneurologically blind. His weight is looking like his weight today is more consistent with weights done a week or two ago. Interim weights may have been in error. Sodium is a little bit elevated today. PLAN: 1. Continue present input, will recheck sodium tomorrow. 2. Dr. Castañeda reviewing overall pattern of changes. Discussion also on monitoring of LFTs and possible other tests to check for that. 3. Bowels are moving well. Will continue present bowel regimen. 4. Discussion with social work regarding barriers to discharge, and options to consider, and information that we will need back from his team in the [facility] area in terms of their ability to return to take on his care in their area. 5. Look at trial of Ultram as an alternative to Percocet. Seems to be some headaches at night. 6. Will increase Ritalin to 15 mg this morning, keep 10 mg in the afternoon. Staff requested to give feedback regarding any changes with recent increases in Ritalin. 7. Sodium on . (Thirty-five minutes total time, greater than 50% care coordination with team). Signed by Allison Alarcon MD 02/21/2005 12:21 Sky Hollingsworth MD Allison Alarcon MD - Allison Alarcon MD A - ss Job ID: [id number] Document ID: [id number] cc: * Raleigh Castañeda MD - 02/20/2005 0000 EDT INPATIENT PROGRESS NOTE PT LOC: F002 Service Date: 02/20/2005 Mr. 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 Vital signs are stable, fever is not present. Cardiac rhythm is regular. Lung medellin are clear. Abdomen is soft. JVD is not visible. ASSESSMENT AND PLAN: 1. Continue full program activities. 2. Continue close monitoring of electrolytes. If elevated sodium levels persist, he may require a slight increase in his desmopressin dosing. Signed by Raleigh Castañeda MD 02/25/2005 10:13 Pipe Corey MD Raleigh Castañeda MD - Raleigh Castañeda MD A - re Job ID: [id number] Document ID: [id number] cc: * Raleigh Castañeda MD - 02/19/2005 0000 EDT INPATIENT PROGRESS NOTE PT LOC: F002 Service Date: 02/19/2005 Mr. Burgos is a 14-year-old with stroke syndrome and panhypopituitarism following resection of craniopharyngioma. Medical issues include hypertriglyceridemia and fatty liver. Current temperature is 36.8. Pulse 100. Respirations 18. Blood pressure 117/69. Cardiac rhythm is regular. Lung medellin are clear. Abdomen is soft. JVD is not visible. ASSESSMENT AND PLAN: 1. Continue stroke recovery. 2. Continue multi-hormonal support for panhypopituitarism. 3. Continue Niacin therapy for hypertriglyceridemia. Signed by Raleigh Castañeda MD 02/21/2005 10:32 Pipe Corey MD Raleigh Castañeda MD - Raleigh Castañeda MD A - mt Job ID: [id number] Document ID: [id number] cc: * Allison Alarcon MD - 02/19/2005 0000 EDT INPATIENT PROGRESS NOTE PT LOC: F002 Service Date: 02/19/2005 DIAGNOSIS: Status post bilateral CVAs/panhypopituitarism. SUBJECTIVE: Miguel Angel continues to respond to usual social greetings. He will reach forward, want to give a ???high-five?? , sometimes shake, sometimes kiss the back of your hand. Mom reports he still occasionally will strike out or attempt to bite. She is very pleased with his progress. Will agree he seems more calm. She thinks he is sleeping well. OBJECTIVE: Vital signs are stable. Affect generally is more controlled. Occasionally loud verbalizations, but more easily distractible and dissuaded from this. Showing some increased initiation of use of his left arm and leg. TEAM ROUNDS: The patients present functional status, discharge goals, and barriers fully reviewed. He is requiring less assistance at times. He still is requiring two person assist transfers or with challenging physical activities. The patient is still anxious and gets a little agitated with attempts to stand. Nursing reports with frequent toileting and use of urinal thathe can be continent during the day with his bladder. Overall, team is feeling he is doing better in terms of participation. He has far less episodes of agitation. Nursing and aid staff have been educated more in distraction techniques and providing sensory stimulation. Since the end of last week,he has been working just with a daily team therapy session. Progress has slowed. He is essentially getting subacute services presently. ASSESSMENT: A patient status post CVA with panhypopituitarism. Formal wheelchair prescription beingdone in consultation with Skyler ARAUZ for pediatric wheelchair prescription needs. Augmentive communication devices evals are scheduled for him. Norberto has completed his psychiatric consultation. He contacted me with thoughts and recommendations. Report is not yet fully dictated. He did meet with the patient on Friday. He thinks that it is very reasonable to try and push the Ritalin dose to try and assess him and see if he responds much in terms of a change in depression and interaction. If he does, it would be reasonable to increase his Zoloft to 50, and then, if responding to that, up to maybe 75 after two weeks of that dose. It may be also a consideration to look at an atypical antipsychotic, such as Risperdal. He would start first with the Ritalin, maybe increasing up to 5 mg increment dailyHe will remain available for feedback and further consultation if needed. Met also with [place] psychologist social out of his primary careoffice, who continues to follow. There was a case management meeting called last week in his local area. Primary care physician still concerned that there are not sufficient services that are going to be available in the local area from a home therapy standpoint, as well as needing to have a clear understanding of [place] behaviors and a good behavioral back-up plan. They wanted clarity around medical if he has difficulty. We are waiting for further information specifics on how we can resolve the discharge barriers to his home area within the near future. At the present time, he will remain on subacute level service status. PLAN: 1. Sodium for tomorrow. 2. Increase Ritalin to 10 mg b.i.d. today and consider 15 and 10 tomorrow. 3. Seating eval pending and augmentive communication eval pending. 4. Time with spent with mom educating around psychiatry service recommendations. She is in agreement with medication options as presented by Dr. Thornton. 5. Will continue to work with patients outside care team to facilitate hopefully setting up reasonable plan for discharge. (70 minutes total time, greater than 50% direct patient family discussion and education and care coordination with team members). Signed by Allison Alarcon MD 02/21/2005 12:21 Sky Hollingsworth MD Allison Alarcon MD - Allison Alarcon MD A - re Job ID: [id number] Document ID: [id number] cc: * Allison Alarcon MD - 02/18/2005 0000 EDT INPATIENT PROGRESS NOTE PT LOC: F002 Service Date: 02/18/2005 DIAGNOSIS: Bilateral cerebrovascular accidents/panhypopituitarism. The patient was seen and examined today. Vital signs are stable and the patient is afebrile.No new clinical issues were identified, and the patient is to continue in the rehabilitation program. Sodium level 139, within desired range. Signed by Allison Alarcon MD 02/19/2005 09:14 ACarol Sky Flowers MD Allison Alarcon MD - Alilson Alarcon MD P - ss Job ID: [id number] Document ID: [id number] cc: * Raleigh Castañeda MD - 02/18/2005 0000 EDT INPATIENT PROGRESS NOTE PT LOC: F002 Service Date: 02/18/2005 Mr. Burgos is a 14-year-old recovering from resection of craniopharyngioma with resultant panhypopituitarism and stroke syndrome. Vital signs are stable, he is afebrile. Sodium has improved to 139. Cardiac rhythm is regular. Lung medellin are clear. Abdomen is soft. JVD is not visible. ASSESSMENT/PLAN: Continue full program activities. Continue monitoring electrolytes. The patient remains on low-dose niacin for treatment of marked hypertriglyceridemia. Signed by Raleigh Castañeda MD 02/19/2005 10:42 Dena Castañeda, Pipe Castañeda MD Raleigh Castañeda MD - Raleigh Castañeda MD A - ss Job ID: [id number] Document ID: [id number] cc: * Drew Larson MD - 02/17/2005 0000 EDT INPATIENT PROGRESS NOTE PT LOC: F002 Service Date: 02/17/2005 Miguel Angel is a 14-year-old man status post CVA after craniopharyngioma resection. His sodium level has improved to 149 this morning. His AST and ALT remain significantly elevated. These will be recheckedagain tomorrow. Miguel Angelbehavior today was calm during my evaluation. His vital signs remain stable, he is afebrile. We will repeat labs tomorrow. Primary service will burr picker anychanges in his LFTs andrefer to appropriate specialists as necessary. Dr. Castañeda will continue to follow closely. Electrolytes generally are under adequate control today. Follow-up electrolytes for tomorrow. Signed by Drew Larson MD 02/18/2005 11:45 Leroy Boateng MD Drew Larson MD - Drew Larson MD P - re Job ID: [id number] Document ID: [id number] cc: * Drew Larson MD - 02/16/2005 0000 EDT INPATIENT PROGRESS NOTE PT LOC: F002 Service Date: 02/16/2005 Miguel Angel is a 14-year-old young man with craniopharyngioma resection and CVA. He also has panhypopituitarism. This morning, his labsreveal that he has had interim decrease in his sodium level from 155 to 154 from yesterday to today. Followup sodium level is ordered for tomorrow. Also followup AST and ALT are ordered as well. This morning, he denies any complaints. He gives me the ???thumbs up?? sign when I ask him how he is doing. He shakes his head no when I ask him if he has any pain complaints. His vital signs reveal borderline elevation in temperature at 38, heart rate is 78, respiratory rate 20, blood pressure 124/86, pulse ox 99% on room air. Other exam is unchanged. will continue to monitor his electrolyte status closely, as well as his liver functions. If any worsening of his temperature is noted or he has systemic changes, we will likely have to send him back to the main hospital again for further evaluation and workup. Signed by Drew Larson MD 02/18/2005 11:45 Leroy Boateng MD Drew Larson MD - Drew Larson MD P - re Job ID: [id number] Document ID: [id number] cc: * Raleigh Castañeda MD - 02/15/2005 0000 EDT INPATIENT PROGRESS NOTE PT LOC: F002 Service Date: 02/15/2005 Mr. Burgos is a 14-year-old recovering from resection of craniopharyngioma with resultant stroke syndrome and panhypopituitarism. Problems have included fluctuations in sodium. Current sodium this morning 158. We have administered an additional 300 cc of H2O by his PEG tube this morning, and a followup sodium is scheduled for midday. Other problems include hypertriglyceridemia with known fatty liver He previously did not tolerate Lopid secondary to rash. He continues to have moderate elevation of liver function studies directly related to his fatty liver infiltration. Today, temperature is 36.4, pulse 80, respirations 18, blood pressure 129/91. Cardiac rhythm is regular. Lung medellin are clear. Abdomen is soft and moderately obese. JVD is not visible. ASSESSMENT/PLAN: 1. Continue program activities. 2. Hypernatremia. Increase free water administration. Recheck sodium later today. 3. Hypertriglyceridemia. Begin very low-dose niacin at 50 mg b.i.d. This can be accelerated slowly for improved tolerance. 4. Continue periodic assessment of liver status. Detailed coordination with physiatry regarding these issues. Signed by Raleigh Castañeda MD 02/19/2005 10:42 Pipe Corey MD Raleigh Castañeda MD - Raleigh Castñaeda MD A - ss Job ID: [id number] Document ID: [id number] cc: * Raleigh Castañeda MD - 02/14/2005 0000 EDT INPATIENT PROGRESS NOTE PT LOC: F002 Service Date: 02/14/2005 Mr. Burgos is a 14-year-old recovering from stroke syndrome secondary to resection of craniopharyngioma. Medical issues include panhypopituitarism as a result of the required operation. Vital signs are stable. Patient is afebrile. Neck: No JVD. Cardiovascular: Regular without murmur. Lungs: Clear. Abdomen: Soft and non-tender without liver or spleen enlargement. Bowel sounds: Normal. Extremities: Free of edema. Skin: Warm and dry. ASSESSMENT AND PLAN: Continue full program activities. Continue currently prescribed medications and regular monitoring of electrolyte status. Signed by Raleigh Castañeda MD 02/19/2005 10:41 Pipe Corey MD Raleigh Castañeda MD - Raleigh Castañeda MD P - mt Job ID: [id number] Document ID: [id number] cc: * Allison Alarcon MD - 02/14/2005 0000 EDT INPATIENT PROGRESS NOTE PT LOC: F002 Service Date: 02/14/2005 DIAGNOSIS: Bilateral cerebrovascular accidents/panhypopituitarism. SUBJECTIVE: Miguel Angel is participating with therapists. Will respond and have a reasonable hand grab for a greeting. No pain at the present time. OBJECTIVE: Vital signs are stable. Affect and behavioral patterns essentially stable. ASSESSMENT: Patient participating more consistently in therapies. Reviewed his medical issues and needs with his primary care physician, Dr. Drew. Discharge planning team from his local area is working on options. Reviewed with Dr. Castañeda his hypertriglyceridemia. He had manifested an allergy to Lopid. PLAN: 1. Repeat liver function tests and lipid panel at this point off all meds. If liver function tests are improving, Dr. Castañeda will look at medication options to trial again. 2. Sodium to be checked Friday and Friday. Signed by Allison Alarcon MD 02/15/2005 09:37 ACarol KYLE Flowersaroliudmila Alarcon MD Allison Alarcon MD - Allison Alarcon MD A - mt Job ID: [id number] Document ID: [id number] cc: * Allison Alarcon MD - 02/13/2005 0000 EDT INPATIENT PROGRESS NOTE PT LOC: F002 Service Date: 02/13/2005 1. DIAGNOSIS: Status post bilateral CVAs/hypopituitarism/craniopharyngioma. 2. 3. SUBJECTIVE: Patient up participating with therapies, doing well with the new stimuli that have been introduced. Still has periodic episodes of uncontrolled wailing and not able to be distracted from this. 4. 5. OBJECTIVE: Vital signs remain stable. Fluid intake is roughly 2 liters, sometimes more, per day.Continues episodes of varying sleep to awake time. 6. 7. ASSESSMENT: Status post bilateral CVAs with left hemiparesis and cognitive deficits. Gradually doing a bit better with the behavioral plan that is in place. Therapists managing the patient well. Sodium today is 140, which is well within limits recommended. 8. 9. PLAN: 10. . Continue full program. 11. . Sodium on Friday. 12. . Clarified again the goal of input in terms of fluid levels from 2 to 2.2 liters, or 2 to 2.5 liters is reasonable also. If the patient does not achieve 2 liters, this should be supplemented through the PEG. Signed by Allison Alarcon MD 02/14/2005 14:39 ACarol Sky Flowers MD Allison Alarcon MD - Allison Alarcon MD A - MO Job ID: [id number] Document ID: [id number] cc: * Raleigh Castañeda MD - 02/13/2005 0000 EDT INPATIENT PROGRESS NOTE PT LOC: F002 Service Date: 02/13/2005 Mr. Burgos is a 14-year-old, who is recovering from resection of craniopharyngioma with stroke syndrome and panhypopituitarism resulting. Temperature today is 36.6, pulse 78, respirations 18, blood pressure 115/65. Neck: No JVD. Cardiovascular: Regular without murmur. Lungs: Clear. Abdomen: Soft and non-tender without liver or spleen enlargement. Bowel sounds: Normal. Extremities: Free of edema. Skin: Warm and dry. Assessment/plan: Continue full program activities. Continue hormonal support. Signed by Raleigh Castañeda MD 02/15/2005 12:35 Pipe Corey MDDennis D Woods, MD Raleigh Castañeda MD - Raleigh Castañeda MD P - mh Job ID: [id number] Document ID: [id number] cc: * Allison Alarcon MD - 02/12/2005 0000 EDT INPATIENT PROGRESS NOTE PT LOC: F002 Service Date: 02/12/2005 DIAGNOSIS: Bilateral cerebrovascular accidents/panhypopituitarism. SUBJECTIVE: Patient indicating he is okay at the present time. He is nodding. Will quickly generate a high five. He squeezes somewhat but I am able to extract my hand. He is denying pain at the present time. OBJECTIVE: Vital signs are stable. Affect is calm at the present moment of evaluation but patient continues tohave episodes of wailing loudly at times through the day. Team members report some improvement in being able to distract him with auditory stimuli and different tools. Patient will initiate isolated left knee extension on the left. He will not show me doing functional performance with his left upper extremity today. Team rounds: Patients present functional status, discharge goals and barriers fully reviewed. In the last week, he is somewhat better behaviorly. He still has moments where he may be abusive or aggressive. Institution of behavioral plan may be having some benefit. For discharge planning, social work states there is going to be a team meeting with patientcare team in his local area later this week. The degree of his medical acuity and full care needs to be discussed. Team supports that the foster family that takes him needs to come for some lengthy training to learn skills and management techniques. Miguel Angel will need to befamiliar with the home he goes to. ASSESSMENT: Patient with bilateral CVAs and panhypopituitarism. Sodium control seems to be fairly reasonable with approximately 2 to a little more liters in per day. Urine output can be variable but it is also difficult to manage at times. Discussed his care with Dr. Edwards, [facility] parents before Miguel Angel is to be discharged if this can be arranged. Dr. Edwards states he will likely need to start testosterone injections some time in the near future. At home, he is anticipating that he will be managed on a weekly sodium and will probably not need to have output checked. PLAN: 1. Continue full program. 2. Psychiatry consult called. Patient will be seen in the next day or so by Dr. Thornton to look at whether any other medication approaches are worth considering in this patient . 3. Sodium to be checked tomorrow. Forty minutes total time, greater than 50% discussion on above interventions with mom and care coordination with team. Signed by Allison Alarcon MD 02/14/2005 14:39 Sky Hollingsworth MD Allison Alarcon MD - Allison Alarcon MD A - mt Job ID: [id number] Document ID: [id number] cc: * Raleigh Castañeda MD - 02/12/2005 0000 EDT INPATIENT PROGRESS NOTE PT LOC: F002 Service Date: 02/12/2005 Mr. Burgos is a 14-year-old boy recovering from stroke syndrome related to resection of craniopharyngioma. Complications have included panhypopituitarism for which he is receiving broad-based hormonal support. Current temperature is 35.2, pulse 74, respirations 20, blood pressure 126/68. Cardiac rhythm is regular. Lung medellin are clear. Abdomen is soft. JVD is not visible. Assessment/plan: Continue full program activities with ongoing administration of hormonal support. Continue following electrolytes. Signed by Raleigh Castañeda MD 02/15/2005 12:35 Pipe Corey, Pipe Castañeda MD Raleigh Castañeda MD - Raleigh Castañeda MD P - mh Job ID: [id number] Document ID: [id number] cc: * Raleigh Castañeda MD - 02/11/2005 0000 EDT INPATIENT PROGRESS NOTE PT LOC: F002 Service Date: 02/11/2005 Night sheets reviewed. Patient tolerating the therapy program. Vital signs are stable. Patient is afebrile. Medical status is suitable to continue full program activities. Signed by Raleigh Castañeda MD 02/12/2005 10:08 Dena Castañeda, Pipe Castañeda, Pipe Castañeda MD Raleigh Castañeda MD - Raleigh Castañeda MD P - mh Job ID: [id number] Document ID: [id number] cc: * Allison Alarcon MD - 02/11/2005 0000 EDT INPATIENT PROGRESS NOTE PT LOC: F002 Service Date: 02/11/2005 DIAGNOSIS: Bilateral CVAs/panhypopituitarism. SUBJECTIVE: The patient had an episode last night where he was agitated and it was difficult to calm him. These continue to occur periodically. He then will have a fairly long stretch of sleep usually. He continues to have episodic times where he is loud and wailing during the day. OBJECTIVE: Pulse is regular. Vital signs are stable. Patient up in chair and participating in therapies at the present moment. Did cooperate with doing a high five. Did hold my hand but was not rough. Applied kisses to the back of my hand. Indicated he had no pain or issues at the present time. LABORATORY DATA: Sodium 135. ASSESSMENT: Patient with bilateral CVAs and panhypopituitarism. Reviewed with mom and social work the outside support teamresponse to this visit. Apparently there was a foster care family that is interested but there is concern about his medical stability overall. Will need tocontinue to clarify this and have education provided by a pediatric research and development manager. Sodium continues to fluctuate be within an allowable range. Discussed with mom possibility of a pediatric psychiatric consult to see if they have some options we could consider. It is not clear that the Zoloft has made a marked change inhis behavior overall. Team members are trying to identify ways the patient can be entertained and st imulated. PLAN: 1. Repeat sodium on Friday. 2. Continue present fluid input of approximately 2 liters. 3. Continue to work with team on discharge planning. (Total time 40 minutes, greater than 50% discussion with family of patientcare and care needs and care coordination with team.) Signed by Allison Alarcon MD 02/12/2005 11:32 Sky Hollingsworth MD Allison Alarcon MD - Allison Alarcon MD A - mo Job ID: [id number] Document ID: [id number] cc: * Allison Alarcon MD - 02/10/2005 0000 EDT INPATIENT PROGRESS NOTE PT LOC: F002 Service Date: 02/10/2005 DIAGNOSIS: Status post bilateral CVAs. The patient was seen and examined today. Vital signs are stable and the patient is afebrile. No newclinical issues were identified, and the patient is to continue in the rehabilitation program. Signed by Allison Alarcon MD 02/11/2005 08:55 Sky Hollingsworth MD Allison Alarcon MD - Allison Alarcon MD A - mo Job ID: [id number] Document ID: [id number] cc: * Jai Barrera MD - 02/09/2005 0000 EDT INPATIENT PROGRESS NOTE PT LOC: F002 Service Date: 02/09/2005 SUBJECTIVE: The nurses report no problems. OBJECTIVE: Vital signs have not been taken. Patient is sleeping. I did speak with his private attendant today and states that Miguel Angel was entirely appropriate and there were no aggressive acts as has been noted. He is medically stable. Continue with current rehab regimen. Signed by Jai Barrera MD 02/13/2005 15:02 Shiv Lucas MD Jai Barrera MD - Jai Barrera MD A - [place] Job ID: [id number] Document ID: [id number] cc: * Raleigh Castañeda MD - 02/08/2005 0000 EDT INPATIENT PROGRESS NOTE PT LOC: F002 Service Date: 02/08/2005 Night sheets reviewed. Patient tolerating the therapy program. Vital signs are stable. Patient is afebrile. Medical status is suitable to continue full program activities. Signed by Raleigh Castañeda MD 02/11/2005 12:40 Pipe Corey MD Raleigh Castañeda MD - Raleigh Castañeda MD A - [place] Job ID: [id number] Document ID: [id number] cc: * Wicho Carlton MD - 02/08/2005 0000 EDT INPATIENT PROGRESS NOTE PT LOC: F002 Service Date: 02/08/2005 Miguel Angel is offering no new complaints. He continues intermittent agitated behavior. Vital signs stable, afebrile. Heart regular. Lungs clear. Abdomen soft and nontender. Bowel sounds are present. Calves soft and nontender. Neurologic without change. Sodium 147. IMPRESSION: Stroke: Continue present therapy program. Sodium is at 147 today. No additional changes will be made. Signed by Wicho Carlton MD 02/18/2005 08:40 Nadine Garcia MD Wicho Carlton MD - Wicho Carlton MD A - mt Job ID: [id number] Document ID: [id number] cc: * Allison Alarcon MD - 02/07/2005 0000 EDT INPATIENT PROGRESS NOTE PT LOC: F002 Service Date: 02/07/2005 DIAGNOSIS: Bilateral cerebrovascular accidents. SUBJECTIVE: Miguel Angel seen several times during the day down in bed and up in his chair. Continues to have episodeswhere he is wailing. He can be quieted at times but at times continues to maintain that behavior. At other times he will respond, answering simple phrases and responds to simple commands. Miguel Angel is being visited today by his discharge planning team and possible medical foster home providers. OBJECTIVE: Vital signs are stable. Affect variable as noted above. Continues to have left hemiparesis. Continues not to have visual input. Family Conference: Met with social work and nurse mental health case manager from his local area and his mom to review questions around his level of care needs, patterns of behaviors, medical issues and things toconsider after discharge. Questions answered. Labs: Sodium 145. ASSESSMENT: Patient with bilateral CVA and panhypopituitarism. Sodium continues to fluctuate somewhat but within a reasonable range. Noted today that Synthroid is not on his present medication list and had not gotten resumed at the time he was transferred back to rehab on January 15. Reviewed with Dr. Castañeda and will resume at his prior dose of 150 mcg per day. Pediatric endocrinology service informed. All othermedications to be maintained. PLAN: 1. Continue full program. 2. Resume Synthroid 150 mcg per day. Forty minutes total time, greater than 50% direct discussion and contact with patient and family, care coordination with team. Signed by Allison Alarcon MD 02/08/2005 10:31 Sky Hollingsworth MD Allison Alarcon MD - Allison Alarcon MD A - mt Job ID: [id number] Document ID: [id number] cc: * Raleigh Castañeda MD - 02/07/2005 0000 EDT INPATIENT PROGRESS NOTE PT LOC: F002 Service Date: 02/07/2005 Mr. 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 He has secondary panhypopituitarism and is requiring broad-basedhormonal support. Current temperature is 35.3, pulse 68, respirations 18, blood pressure 126/70. Cardiac rhythm is regular. Lung medellin are clear. Abdomen is soft. JVD not visible. ASSESSMENT AND PLAN: Cardiorespiratory status is stable. Continue full program activities. Continueperiodic monitoring of electrolytes. Signed by Raleigh Castañeda MD 02/11/2005 10:09 Pipe Corey MD Raleigh Castañeda MD - Raleigh Castañeda MD P - lr Job ID: [id number] Document ID: [id number] cc: * Allison Alarcon MD - 02/06/2005 0000 EDT INPATIENT PROGRESS NOTE PT LOC: F002 Service Date: 02/06/2005 DIAGNOSIS: Bilateral CVAs. The patient was seen and examined today. Vital signs are stable and the patient is afebrile. No newclinical issues were identified, and the patient is to continue in the rehabilitation program. Sodium today 146. Continue with present fluid goals of 2 L. Signed by Allison Alarcon MD 02/07/2005 16:52 ACarol Sky Flowers MD Allison Alarcon MD - Allison Alarcon MD A - re Job ID: [id number] Document ID: [id number] cc: * Raleigh Castañeda MD - 02/06/2005 0000 EDT INPATIENT PROGRESS NOTE PT LOC: F002 Service Date: 02/06/2005 Night sheets reviewed. Patient tolerating the therapy program. Vital signs are stable. Patient is afebrile. Medical status is suitable to continue full program activities. Signed by Raleigh Castañeda MD 02/08/2005 09:37 Pipe Corey MD Raleigh Castañeda MD - Raleigh Castañeda MD A - re Job ID: [id number] Document ID: [id number] cc: * Allison Alarcon MD - 02/05/2005 0000 EDT INPATIENT PROGRESS NOTE PT LOC: F002 Service Date: 02/05/2005 DIAGNOSIS: Status post bilateral CVAs/craniopharyngioma. SUBJECTIVE: Mom noting that Miguel Angel seems very frustrated this morning. Mom had just returned from weekendaway yesterday afternoon. Miguel Angel, when directly spoken to, would break out of his agitation, restlessness, and kicking in his bed to responding to my questions and repeating words requested of himNo clear response to any areas of pain at the present time that I saw him. Team notes and reviewed with team the patientbehavioral difficulties on Friday and over the weekend. He had one stretch wherehe seemed to be unable to be quieted and required a number of people to get him safely transferred over to a stretcher to be brought tothe floor from the large gym area. OBJECTIVE: signs are stable. Affect varies from resting to calm to agitated through the day. The patient seen and observed in a number of settings. He is starting to use and move his left leg more, as well as his left arm. Continues to have increased tone on the left versus the right. Continues with good volitional activity in the right arm and right leg. DIAGNOSTICS: Visual evoked potential report received. Absent cortical responses. TEAM ROUNDS: The patients discharge goals and barriers discussed and reviewed. Team continues to work with and try to follow behavioral plan from which we have had input from social work in and outside of the hospital child psychology. No clear marked change with Zoloft which was initiated a littleover a week ago. Medical foster care family will be coming to look at and review the case on . ASSESSMENT: A patient status post bilateral CVA with panhypopituitarism. Last sodium was on February 03, 2005. Behavioral issues continue to be challenging. Team continuing to work with patient whenever possible. Team will try and work with the medical foster care family coming to review the situation on Visual evoked potentials had confirmed at this point the patient still continues to have no cortical response. PLAN: 1. Continue full program. 2. Check sodium by fingerstick tomorrow. minutes total time, greater than 50% direct contact and discussion with mom regarding patients status and tests and care coordination with team). Signed by Allison Alarcon MD 02/06/2005 21:37 Sky Hollingsworth MD Allison Alarcon MD - Allison Alarcon MD A - re Job ID: [id number] Document ID: [id number] cc: * Raleigh Castañeda MD - 02/05/2005 0000 EDT INPATIENT PROGRESS NOTE PT LOC: F002 Service Date: 02/05/2005 Night sheets reviewed. Patient tolerating the therapy program. Vital signs are stable. Patient is afebrile. Medical status is suitable to continue full program activities. Signed by Raleigh Castañeda MD 02/08/2005 08:21 Pipe Corey MD Raleigh Castañeda MD - Raleigh Castañeda MD P - lr Job ID: [id number] Document ID: [id number] cc: * Wicho Carlton MD - 02/04/2005 0000 EDT INPATIENT PROGRESS NOTE PT LOC: F002 Service Date: 02/04/2005 Miguel Angel apparently had a fairly rough weekend with some agitation. The etiology of this remains uncertain. Vital signs are stable; afebrile. Heart regular, lungs clear. Abdomen soft, nontender. Extremity range of motion does not appear to yield any significant discomfort. There is no tenderness. IMPRESSION: Craniopharyngioma: Continue present therapy program. It is very difficult to understandwhat is causing the agitative behavior in this young man. Continue present Ritalin and Zoloft dosing.I would consider a longer-acting form of Ritalin such as Concerta. Additionally, other neuro-activating medications such as Cymbalta might be beneficial. Continue to follow. Case is discussed with physical therapy and with neuropsychology today. Signed by Wicho Carlton MD 02/05/2005 08:21 Nadine Garcia MD Wicho Carlton MD - Wicho Carlton MD P - mo Job ID: [id number] Document ID: [id number] cc: * Raleigh Castañeda MD - 02/04/2005 0000 EDT INPATIENT PROGRESS NOTE PT LOC: F002 Service Date: 02/04/2005 Night sheets reviewed. Patient tolerating the therapy program. Vital signs are stable. Patient is afebrile. Medical status is suitable to continue full program activities. Signed by Raleigh Castañeda MD 02/07/2005 11:21 Pipe Corey MD Raleigh Castañeda MD - Raleigh Castañeda MD A - mt Job ID: [id number] Document ID: [id number] cc: * Raleigh Castañeda MD - 02/03/2005 0000 EDT INPATIENT PROGRESS NOTE PT LOC: F002 Service Date: 02/03/2005 Mr. Burgos is a 14-year-old with stroke syndrome following craniopharyngioma resection. Medical issues include panhypopituitarism. Patient is showing adequate electrolyte control at this point with asodium of 135 and a potassium of 5.2. Followup studies have been requested. Vital signs are stable,he is afebrile. Cardiac rhythm is regular. Lung medellin are clear. Abdomen is obese and soft. Skin is warm and dry. JVD is not visible. ASSESSMENT/PLAN: Continue full program activities. Continue treatment for panhypopituitarism with DDAVP, hydrocortisone, and Synthroid. Signed by Raleigh Castañeda MD 02/06/2005 11:28 Pipe Corey MD Raleigh Castañeda MD - Raleigh Castañeda MD A - Job ID: [id number] Document ID: [id number] cc: * Drew Larson MD - 02/02/2005 0000 EDT INPATIENT PROGRESS NOTE PT LOC: F002 Service Date: 02/02/2005 Miguel Angel is a 14-year-old boy with a history of CVA after craniopharyngioma resection panhypopituitarism and hyponatremia. Nursing reports that he has been complaining of left leg pain. On my exam today, there are no obvious findings to explain any leg discomfort. He was very agitated but calmed down apparently after a dose of benzodiazepine and Percocet. His sodium has dropped from 144 on January 30 to 134 on February 01. Followup sodium level will be ordered for tomorrow. Otherwise, Miguel Angel will continue comprehensive therapy services. We will continue to monitor his hyponatremia. His 1:1 supervision continues. He will continue treatment for his panhypopituitarism. Signed by Drew Larson MD 02/05/2005 10:20 Leroy Boateng MD Drew Larson MD - Drew Larson MD P - lr Job ID: [id number] Document ID: [id number] cc: * Wicho Carlton MD - 02/01/2005 0000 EDT INPATIENT PROGRESS NOTE PT LOC: F002 Service Date: 02/01/2005 Mr. Burgos is offering no new complaints this morning. He is intermittently agitated. Vital signs are stable, afebrile. Heart regular, lungs clear. Calves soft and nontender. Sodium level pending. IMPRESSION: 1. Hyponatremia: Apparently the lab was unable to get sodium level drawn this morning. They have been currently pursuing getting a second attempt. 2. Stroke: Continue present therapy program. He intermittently is participating and making some reasonable gains. Disposition is uncertain. Signed by Wicho Carlton MD 02/05/2005 08:20 Nadine Garcia MD Wicho Carlton MD - Wicho Carlton MD P - ss Job ID: [id number] Document ID: [id number] cc: * Raleigh Castañeda MD - 02/01/2005 0000 EDT INPATIENT PROGRESS NOTE PT LOC: F002 Service Date: 02/01/2005 Mr. Burgos is a 14-year-old recovering from craniopharyngioma resection with secondary stroke syndrome. Problems include panhypopituitarism requiring therapy with DDAVP, hydrocortisone and Synthroid. Sodium today is 134, prealbumin 25. Vital signs are stable; no fever is present. Cardiac rhythm is regular. Lung medellin are clear. Abdomen is soft. JVD is not visible. Assessment/plan: Cardiorespiratory status is stable. Continue monitoring electrolytes. Continue drug therapy, as described above. Signed by Raleigh Castañeda MD 02/06/2005 08:13 Dena Castañeda, Pipe Castañeda, Pipe Castañeda MD Raleigh Castañeda MD - Raeligh Castañeda MD P - mh Job ID: [id number] Document ID: [id number] cc: * Raleigh Castañeda MD - 01/31/2005 0000 EDT INPATIENT PROGRESS NOTE PT LOC: F002 Service Date: 01/31/2005 Mr. Burgos is a 14-year-old with stroke syndrome following surgical resection of a craniopharyngioma. He has been nearly nonverbal but is participating actively inthe therapy program. He has had someincreased agitation today and this is associated with his examination which revealed significant increased firmness of the abdomen without rebound or specific guarding. Bowel sounds are somewhat hypoactive. Temperature is 35.8, pulse 84, respirations 18, blood pressure 108/67. Skin is warm and dry. The neck veins are not distended. ASSESSMENT AND PLAN: Continue program activities on an as-tolerated basis. The patient appears to have developed significant constipation leading to a firmer abdomen and subsequent increase in patient distress. We will begin lactulose therapy to assist in resolution of constipation and attempt to increasefluid intake as possible. We will need to continue to balance fluid intake needs with need tomaintain normal sodium levels. The patient will continue on DDAVP, hydrocortisone, and Synthroid. Signed by Raleigh Castañeda MD 02/04/2005 07:01 Pipe Corey MD Raleigh Castañeda MD - Raleigh Castañeda MD P - lr Job ID: [id number] Document ID: [id number] cc: * Wicho Carlton MD - 01/30/2005 0000 EDT INPATIENT PROGRESS NOTE PT LOC: F002 Service Date: 01/30/2005 The patient is relatively calm this morning. He was evaluated by social media job titles yesterday at the [facility] level for evaluation of next appropriate setting. Blood pressure 122/71, pulse 102, afebrile. Heart is regular. Lungs are clear. Abdomen is soft and nontender, bowel sounds are present. Calves are soft and nontender. Neurologic is without change. Sodium 144. IMPRESSION: 1. Hyponatremia: Clinically stable on present management. Continue to supplement fluid to 2000 cc daily. He appears to do well with this. We will plan on checking him again early next week. 2. Craniopharyngioma: Continue present therapy program. Behavioral plan is in place and appears to be working fairly well. Continue present doses of Ritalin and Zoloft. DISPOSITION: Social jo at the [facility] is working with Lashon Lawton the [facility] to help assess placement issues. Case discussed with social media job titles this morning. Signed by Wicho Carlton MD 01/31/2005 08:05 Nadine Garcia MD Wicho Carlton MD - Wicho Carlton MD A - re Job ID: [id number] Document ID: [id number] cc: * Raleigh Castañeda MD - 01/30/2005 0000 EDT INPATIENT PROGRESS NOTE PT LOC: F002 Service Date: 01/30/2005 Night sheets reviewed. Patient tolerating the therapy program. Vital signs are stable. Patient is afebrile. Medical status is suitable to continue full program activities. Signed by Raleigh Castañeda MD 02/04/2005 07:01 Pipe Corey MD Raleigh Castañeda MD - Raleigh Castañeda MD P - re Job ID: [id number] Document ID: [id number] cc: * Wicho Carlton MD - 01/29/2005 0000 EDT INPATIENT PROGRESS NOTE PT LOC: F002 Service Date: 01/29/2005 Miguel Angel is nonvocal this morning. Vital signs are stable; afebrile. Heart regular, lungs clear. Abdomen soft, nontender. Bowel sounds present. Neurologic without change. IMPRESSION: 1. Continue present therapy program. Team meeting is attended today and case discussed with all team members. Time spent: 35 minutes with greater than 50% of time in direct patient care. We are trying to identify further inpatient rehabilitation goals. 2. dysfunction: Followup laboratory study tomorrow. Will also check BUN/creatinine given the adjustment in fluids. Signed by Wicho Carlton MD 01/31/2005 08:05 Nadine Garcia MD Wicho Carlton MD - Wicho Carlton MD P - mo Job ID: [id number] Document ID: [id number] cc: * Raleigh Castañeda MD - 01/29/2005 0000 EDT INPATIENT PROGRESS NOTE PT LOC: F002 Service Date: 01/29/2005 Mr. Burgos is a 14-year-old recovering from craniopharyngioma resection with secondary stroke syndrome. He has acquired panhypopituitarism. temperature is 36.2, pulse 64, respirations 18, blood pressure 128/70. Cardiac rhythm is regular. Lung medellin are clear. Respiratory effort is not increased. Abdomen is soft. Lower extremities are not edematous. ASSESSMENT AND PLAN: 1. Continue full program activities. Continue hormonal support and monitoring of electrolytes in the setting of panhypopituitarism. Signed by Raleigh Castañeda MD 02/04/2005 07:01 Pipe Corey MD Raleigh Castañeda MD - Raleigh Castañeda MD P - re Job ID: [id number] Document ID: [id number] cc: * Wicho Carlton MD - 01/28/2005 0000 EDT INPATIENT PROGRESS NOTE PT LOC: F002 Service Date: 01/28/2005 Mr. Burgos is offering no new complaints. Vital signs are stable. Afebrile. Heart regular. Lungs clear. Abdomen soft and nontender. He is intermittently participating in therapies. IMPRESSION: 1. Craniopharyngioma status post resection: Continue present therapy program. Team is very concerned about overall behaviors. He is on Zoloft and we might consider increasing this to 50 mg daily. 2. Hyponatremia: Sodium is down from 155 to 151. As discussed with Dr. Castañeda, we need to ensure that he has at least 2000 cc of free fluid daily. We may want to consider increasing this. Again I reiterated with nursing the importance of this issue. Consider rechecking later this week. Signed by Wicho Carlton MD 01/28/2005 16:21 Nadine Garcia MDRoger C Knakal, MD Wicho Carlton MD - Wicho Carlton MD P - chelle Job ID: [id number] Document ID: [id number] cc: * Raleigh Castañeda MD - 01/28/2005 0000 EDT INPATIENT PROGRESS NOTE PT LOC: F002 Service Date: 01/28/2005 Mr. Burgos is a 14-year-old with stroke syndrome following resection of craniopharyngioma. He has secondary panhypopituitarism requiring multi-hormonal drug therapy. His current temperature is 37.2, pulse 117, respirations 18, blood pressure 132/63. Repeat heart rate at 2:00 in the afternoon 90. Cardiac rhythm is regular. Lung medellin are clear. Abdomen is mildly obese and soft. Skin is warm and dry. JVD is not visible. Sodium today 151. ASSESSMENT AND PLAN: Continue full program activities. Continue close monitoring of electrolytes. Add supplemental free water secondary to hypernatremia. Continue DDAVP, hydrocortisone, and Synthroid. Signed by Raleigh Castañeda MD 02/04/2005 07:01 Pipe Corey MD Raleigh Castañeda MD - Raleigh Castañeda MD P - lr Job ID: [id number] Document ID: [id number] cc: * Wicho Carlton MD - 01/27/2005 0000 EDT INPATIENT PROGRESS NOTE PT LOC: F002 Service Date: 01/27/2005 Miguel Angel appears to be unchanged this morning. He is quiet. Vital signs are stable, afebrile. Heart isregular. Lungs are clear. Abdomen is soft and nontender. Neurologic is without change. Sodium is 155. IMPRESSION: Hypernatremia: I did review his fluid intake yesterday. It appears he only got 1600 cc in, if what was recorded is accurate. We are going to give him an additional 300 cc bolus and recheck sodium level tomorrow. I have discussed the case with nursing to insure that he gets supplemented to 2000 cc of fluid daily in the event he does not take in adequate p.o. Signed by Wicho Carlton MD 01/28/2005 16:20 Nadine Garcia MD Wicho Carlton MD - Wicho Carlton MD P - re Job ID: [id number] Document ID: [id number] cc: * Wicho Carlton MD - 01/26/2005 0000 EDT INPATIENT PROGRESS NOTE PT LOC: F002 Service Date: 01/26/2005 Miguel Angel is offering no complaints today. Vital signs are stable. Afebrile. Heart regular. Lungs clear. Abdomen soft, nontender. Bowel soundspresent. IMPRESSION: 1. Craniopharyngioma: Continue present therapy program. He is tolerating current dosing of Zoloft well. I anticipate increasing this to 50 mgover the next couple of days in the event he continues to tolerate it. 2. Hyponatremia: Upon further review, the patient received inadequate p.o. fluid intake. This was supplemented yesterday and sodium is down to 148 today.Recheck him on Friday. 3. Stroke: Continue to do therapies as tolerated. Signed by Wicho Carlton MD 01/28/2005 16:20 Nadine Garcia MD Wicho Carlton MD - Wicho Carlton MD P - lr Job ID: [id number] Document ID: [id number] cc: * Wicho Carlton MD - 01/25/2005 0000 EDT INPATIENT PROGRESS NOTE PT LOC: F002 Service Date: 01/25/2005 Miguel Angel is more alert this morning. He attempting some independent feeding. Vital signs are stable, afebrile. Heart regular, lungs clear. Abdomen is soft and nontender. PEG tube is intact. Calves soft and nontender. IMPRESSION: 1. Craniopharyngioma: Continue present therapy program for secondary debility and resultant stroke.He continues to make some small gains. Consideration of Zoloft is being made on low-dose initiationfor agitative-type behavior. 2. Hyponatremia: Sodium is increased from 140 to 153. I discussed this at length with Dr. Raleigh Castañeda. A followup laboratory study will be obtained via venipuncture to confirm the result. In the event the sodium is elevated, we will consult endocrinology. Signed by Wicho Carlton MD 01/26/2005 12:22 Nadine Garcia MD Wicho Carlton MD - Wicho Carlton MD P - ss Job ID: [id number] Document ID: [id number] cc: * Raleigh Castañeda MD - 01/25/2005 0000 EDT INPATIENT PROGRESS NOTE PT LOC: F002 Service Date: 01/25/2005 Mr. Burgos is a 14-year-old with panhypopituitarism following resection of craniopharyngioma. He has marked stroke syndrome as well. Problems have included hypo and hypernatremia. Current sodium is 153. We are administering an additional 300 cc of water by gastric tube today. We have reviewed fluid and DDAVP orders both with physiatry and the nursing staff. Patient will received additional fluid up to 2 liters per day if his oral intake is less than 2 liters. Current temperature is 36.1. Pulse 95. Respirations 16. Blood pressure 126/76. Cardiac rhythm is regular. Lung medellin are clear. Abdomen is soft. G-tube in place. Lower extremities not edematous. ASSESSMENT AND PLAN: Increase free water to treat significant hypernatremia. Detailed care coordination regarding this issue. A total of 45 minutes spent on this case today, greater than 50% of which was involved in coordination of care with nursing and physiatry. Signed by Raleigh Castañeda MD 02/03/2005 11:44 Pipe Corey MD Raleigh Castañeda MD - Raleigh Castañeda MD A - mt Job ID: [id number] Document ID: [id number] cc: * Allison Alarcon MD - 01/24/2005 0000 EDT INPATIENT PROGRESS NOTE PT LOC: F002 Service Date: 01/24/2005 DIAGNOSIS: Bilateral CVA. SUBJECTIVE: The patient had more restful periods during the night but still occasional restlessness. He is denying any pain this morning. Is partially participating in therapies. Rash on face is still slightly raised but not itching and nonred. Patient denies any itching. OBJECTIVE: Vital signs are stable. Affect is essentially unchanged. He tends to vary between quietness with tactile stimulation to restless to agitated sleep. Left upper extremity with increasing spasticity tone although close to full range out when stretched slowly. No edema in the left arm or left leg where the hemiparesis is. LABORATORY DATA: Sodium 140. Input 1650, output 1690. Team conference: The patient's staff gathered to discuss his behavioral challenges and increased aggressiveness around staff and limited participation at times. Team to work with medical psychology on clarifying 100% choices, options, and increased participation. OT feeling like there may be some visual sensation he picks up in his right lower quadrant. ASSESSMENT: 1. Status post bilateral CVAs with left hemiparesis. Discussed his course to date, not only with team but separately with medical psychology and then also with pediatric psychology. Reviewed approaches to his behaviors with his prior pediatric attending. Therapists noting he seems to be showing some areas of improvement, increased initiation, but still has very significant cognitive deficits. 2. Miguel Angel with fluctuating levels of participation. Team working on consistent approach to encourageincreased participation. Patient still has dysarthric voice. He generally follows commands. PLAN: . THE PATIENT HAS AN ALLERGY TO LOPID. Please note. . Zoloft 25 mg p.o. q.a.m. . Decrease Ativan dosing from 0.5 to 1 to be given about 45 minutes prior to his therapy session ifagitated. . Patient order completed for visual evoked potentials to be done. . Pediatric psychology service will interact with and provide support with in conjunction with medical psychology department. time 85 minutes, greater than 50% direct patient-family interaction, education, counseling, and care coordination with team.) Signed by Allison Alarcon MD 01/25/2005 22:16 Sky Hollingsworth MD Allison Alarcon MD - Allison Alarcon MD A - MO Job ID: [id number] Document ID: [id number] cc: A - mo Job ID: [id number] Document ID: [id number] cc: * Raleigh Castañeda MD - 01/24/2005 0000 EDT INPATIENT PROGRESS NOTE PT LOC: F002 Service Date: 01/24/2005 Mr. 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 Medical issues include panhypopituitarism. Sodium currently in acceptable range at 140. Mild liver test abnormalities noted with an ALT of 105. Cardiac rhythm is regular. Lung medellin are clear. Abdomen is soft. JVD is not visible. Vital signs are stable, no fever is present. ASSESSMENT AND PLAN: 1. Continue full program activities. 2. Continue DDAVP, Synthroid, and hydrocortisone for treatment of panhypopituitarism. 3. Continue periodic monitoring of liver studies and regular follow up of electrolyte status. Signed by Raleigh Castañeda MD 01/31/2005 10:30 Pipe Corey MD Raleigh Castañeda MD - Raleigh Castañeda MD P - re Job ID: [id number] Document ID: [id number] cc: * Allison Alarcon MD - 01/23/2005 0000 EDT INPATIENT PROGRESS NOTE PT LOC: F002 Service Date: 01/23/2005 DIAGNOSIS: Status post bilateral cerebrovascular accidents. SUBJECTIVE: The patient sleepy this morning, not eager to be woken or interacted with. Denying any pain at the present time. He was reported to have a somewhat better night last night. OBJECTIVE: Vital signs are stable. Affect remains variable between calm and resting to agitated wailing. Pulse is regular. Rash is essentially resolved. LABS: LFTs still mildly elevated, essentially stable. Sodium 136. ASSESSMENT: Patient is status post bilateral CVAs. Team members working on a consistent behavioral plan. The patient did not tolerate as much therapy this morning, so we will be moving to half-hour slots. He is now on an increased dose of Ritalin today. I think it is time to discontinue his Neurontin. Next medication to be considered and added to his regimen to help with some of his behavioral issues is Zoloft. This can be considered in the next few days. PLAN: 1. Discontinue Neurontin. 2. Recheck sodium tomorrow. 3. Continue with present Ritalin dose. Signed by Allison Alarcon MD 01/25/2005 10:18 ACaSky Dumont MD Allison Alarcon MD - Allison Alarcon MD A - ss Job ID: [id number] Document ID: [id number] cc: * Raleigh Castañeda MD - 01/23/2005 0000 EDT INPATIENT PROGRESS NOTE PT LOC: F002 Service Date: 01/23/2005 Mr. Burgos is a 14-year-old with stroke syndrome following resection of craniopharyngioma. He is participating actively in the therapy program. Medical issues include panhypopituitarism, for which heis receiving broad-based supplementation. Current temperature is 36.6, pulse 106, respirations 18, blood pressure 136/89. Neck: No JVD. Cardiovascular: Regular without murmur. Lungs: Clear. Abdomen: Soft and non-tender without liver or spleen enlargement. Bowel sounds: Normal. Extremities: Free of edema. Skin: Warm and dry. ASSESSMENT/PLAN: Continue full program activities. Continue DDAVP, hydrocortisone, and Synthroid. Signed by Raleigh Castañeda MD 01/29/2005 16:33 Pipe Corey MD Raleigh Castañeda MD - Raleigh Castañeda MD P - ss Job ID: [id number] Document ID: [id number] cc: * Allison Alarcon MD - 01/22/2005 0000 EDT INPATIENT PROGRESS NOTE PT LOC: F002 Service Date: 01/22/2005 DIAGNOSIS: Bilateral CVAs. SUBJECTIVE: The patient is appearing more verbal this morning and with re-evals during the day. He tends to revert to just wailing most easily, but can be distracted to discussing what his needs are at the moment. Staff had noticed significant papillary rash, which was red over his face and his limbs. He is describing some itching also. OBJECTIVE: Lungs are clear. Heart: S1, S2, regular. The patient is still following commands. TEAM ROUNDS: The patient's present functional status, discharge goals, and barriers fully reviewed.Additional conversations held outside team rounds regarding behavior management options with medication options for the patient's presently challenging behavior patterns. In addition to the wailing, which often needs to get focus for him to focus on what he is needing and to verbalize that. Rash asnoted across cheeks, upper trunk, and on extremities patchily. ASSESSMENT: A patient with bilateral CVAs. Lengthy discussions with team and mom regarding prior directions taken. The patient previously had behavioral issues with yelling and throwing at times. Wason no psychoactive meds. Input 1939 cc. Discussed the rash with Dr. Castañeda, who feels that although a bit early, it certainly could be coming from the Lopid, so this needs to get discontinued. WE willcheck lipids and LFT's tomorrow. PLAN: 1. Increase Ritalin to 10 mg every morning, 5 mg q.p.m. 2. Anticipate being able to get off the Neurontin as pain that we were initially treating him for seems to have cleared. 3. Check LFTs and fasting lipids. 4. Discontinue Lopid. 5. Med psych to talk to prior mental health case manager and discuss medication regimen options. 6. Allow Percocet and Benadryl. 7. Team to work on behavioral plan with MEd Psych. minutes total time, greater than 50% direct patient, family education and care coordination with team). Signed by Allison Alarcon MD 01/23/2005 09:29 ACaSky Dumont MD Allison Alarcon MD - Allison Alarcon MD A - RE Job ID: [id number] Document ID: [id number] cc: * Raleigh Castañeda MD - 01/22/2005 0000 EDT INPATIENT PROGRESS NOTE PT LOC: F002 Service Date: 01/22/2005 Mr. Burgos is a 14-year-old boy recovering from resection of craniopharyngioma with secondary stroke syndrome. Problems have included panhypopituitarism. Sodium improved today at 135. Current temperature is 36.4, pulse 100, respirations 16, blood pressure 129/77. Cardiac rhythm is regular. Lung medellin are clear. Abdomen is soft. JVD is not visible. ASSESSMENT/PLAN: Continue Synthroid, hydrocortisone, and DDAVP. Continue close monitoring of electrolytes. Signed by Raleigh Castañeda MD 01/28/2005 15:59 Pipe Corey MD Raleigh Castañeda MD - Raleigh Castañeda MD P - ss Job ID: [id number] Document ID: [id number] cc: * Allison Alarcon MD - 01/21/2005 0000 EDT INPATIENT PROGRESS NOTE PT LOC: F002 Service Date: 01/21/2005 DIAGNOSIS: Status post cerebrovascular accidents. SUBJECTIVE: Miguel Angel up in therapies. Having variable times today of loud verbalizations but responding to therapistrequests to identify his needs. Sleep cycles on night sheets again are showing episodes where he is up and then where he settled down. His mom has been away this weekend. OBJECTIVE: Vital signs are stable. Affect was somewhat flat but he does respond to requests. He gives a high five or gives a handshake but his handshake becomes too hard and he will not let go unlessthe hand is pried away. His lungs are clear to auscultation, heart is regular. Skin is intact in his lower extremities. No significant edema. with left hemiparesis but at times shows some increased initiation with his left upper extremity. Fluids input and output: January 18, 2005, 1980 in, output? January 19, 2005, 1940 in, output? January 20, 2005, input 1690, output 780. Fingersticks 119-144. Sodium 129. Urine cultures from January 20, 2005 negative. ASSESSMENT: Patient with bilateral CVAs. He has been participating with program Sleep-wake cycle still not fully adjusted. Sodium is decreasing over the weekend from 143, 136, to 129. Ativan had beenallowed for restlessness and agitation, some during the weekend. PLAN: 1. Will get a sodium about 4 p.m. this afternoon by fingerstick. 2. Continue to monitor strict input and output. 3. Continue full program. ADDENDUM: Sodium done is 130. No further drop downs. We will continue present DDAVP doses and monitor again tomorrow morning. Signed by Allison Alarcon MD 01/22/2005 11:41 Sky Hollingsworth MD Allison Alarcon MD - Allison Alarcon MD A - ss Job ID: [id number] Document ID: [id number] cc: * Raleigh Castañeda MD - 01/21/2005 0000 EDT INPATIENT PROGRESS NOTE PT LOC: F002 Service Date: 01/21/2005 Mr. Burgos is a 14-year-old recovering from craniopharyngiomaresection with secondary stroke syndrome. Problems include panhypopituitarism. The patient is on DDAVP, hydrocortisone, and Synthroid. Sodium is low today at 129, requiring an adjustment in free water administration downward. Current temperature is 37.1, pulse 89, respirations 18, blood pressure 138/76. Neck: No JVD. Cardiovascular: Regular without murmur. Lungs: Clear. Abdomen: Soft and non-tender without liver or spleen enlargement. Bowel sounds: Normal. Extremities: Free of edema. Skin: Warm and dry. ASSESSMENT AND PLAN: Continue full program activities. Recheck electrolytes tomorrow. Decrease freewater administration. Signed by Raleigh Castañeda MD 01/28/2005 07:05 Pipe Corey MD Raleigh Castañeda MD - Raleigh Castañeda MD P - lr Job ID: [id number] Document ID: [id number] cc: * Drew Larson MD - 01/20/2005 0000 EDT INPATIENT PROGRESS NOTE PT LOC: F002 Service Date: 01/20/2005 Miguel Angel is a 14-year-old boy with a history of CVA after craniopharyngioma resection. He apparently was very anxious last night with frequent episodes of screaming out. He received a dose of Ativan 1 mg x1 last night per Dr. Guzmán. This morning, he continues to be moderately agitated. A repeat dose of Ativan at 1 mg to be repeated q.8 p.r.n. for severe agitation was ordered this morning. His vital signs are otherwise stable and he remains afebrile with good pulse ox. I observed him on the rehab unit with a nursing informatics specialist wheeling him around. When he is distracted, he does seem to calm his mood down a bit. It is unclear as to whether or not he is having anysignificant pain issues versus significant agitation and behavioral issues. As we know, he had significant behavioral problems prior to this injury.Followup labs will continue to be monitored by the primary service for his panhypopituitarism. He will continue therapy services as tolerated. Signed by Drew Larson MD 01/22/2005 15:47 Maurice Larson, MDScjayla Larson, Leroy Larson MD Drew Larson MD - Drew Larson MD A - guard captain Job ID: [id number] Document ID: [id number] cc: * Raleigh Castañeda MD - 01/19/2005 0000 EDT INPATIENT PROGRESS NOTE PT LOC: F002 Service Date: 01/19/2005 Mr. Burgos is a 14-year-old recovering from resection with subsequent stroke syndrome. He has panhypopituitarism and is requiring multihormonal therapy. Hyponatremia and hypernatremia have been intermittently problematic. Current sodium is 143. He is receiving Other supplements include hydrocortisone and Synthroid. temperature is 35.8, pulse 80, respirations 20, blood pressure 134/70. Cardiac rhythm is regular. Lung medellin are clear. Neck veins are not distended. Abdomen is soft andmildly obese. ASSESSMENT AND PLAN: 1. Continue program activities. Continue supplemental medications as described with ongoing monitoring of electrolytes. Signed by Raleigh Castañeda MD 01/28/2005 07:05 Pipe Corey MD Raleigh Castañeda MD - Raleigh Castañeda MD P - re Job ID: [id number] Document ID: [id number] cc: * Wicho Carlton MD - 01/18/2005 0000 EDT INPATIENT PROGRESS NOTE PT LOC: F002 Service Date: 01/18/2005 Mr. Burgos is feeling apparently well this morning. He has had some back pain which has been evaluated previously and felt to be secondary to overall immobility. Therapies are working on getting him up in the standing frame. He is tolerating this marginally. Vital signs are stable, afebrile. Heart is regular. Lungs are clear. Abdomen is soft and nontenderPEG tube is intact. Calves are soft and nontender. Neurologic is without change. IMPRESSION: 1. Stroke: Continue present therapy program. Continue efforts to improve mobility. 2. Hyponatremia: Sodium is at 135, down from 141. I have discussed this with Dr. Raleigh Castañeda, who will follow again tomorrow. Some adjustments in medications were made prior to to the rehab center. Additionally, nursing has been requested to monitor overall intake more closely. All p.o. intake is being monitored carefully. Signed by Wicho Carlton MD 01/18/2005 13:58 Nadine Garcia MD Wicho Carlton MD - Wicho Carlton MD A - re Job ID: [id number] Document ID: [id number] cc: * Raleigh Castañeda MD - 01/18/2005 0000 EDT INPATIENT PROGRESS NOTE PT LOC: F002 Service Date: 01/18/2005 Mr. Burgos is a [id number] from resection of a craniopharyngioma with secondary panhypopituitarism. He is requiring hypothyroidism treatment with Synthroid. He is also on DDAVP to assist in maintenanceof sodium metabolism and is receiving hydrocortisone therapy. Vital signs remain stable, he is not febrile. He continues to have intermittent crying out. Sodium is currently 135, a followup has been ordered. Cardiac rhythm is regular. Lung medellin are clear. Abdomen is soft. JVD is not visible. ASSESSMENT/PLAN: Continue full program activities. Continue supplemental hormonal medications. Followup sodium scheduled for Friday. Signed by Raleigh Castañeda MD 01/25/2005 11:39 Dena Castañeda, [facility]US HOSPITALevangelista Castañeda MD Raleigh Castañeda MD - Raleigh Castañeda MD A - ss Job ID: [id number] Document ID: [id number] cc: * Allison Alarcon MD - 01/17/2005 0000 EDT INPATIENT PROGRESS NOTE PT LOC: F002 Service Date: 01/17/2005 DIAGNOSIS: Status post bilateral CVAs. SUBJECTIVE: Miguel Angel up in chair at midmorning. Responding quickly. Indicating he had good therapy sessions with a thumbs up sign. Not complaining to me at the present momentHis mom reporting at times that he has been biting her. She actually came and showed an area where he had broken the skin later in the day. She is concerned about his nights, he still was restless. Miguel Angel indicating positive response to therapy and increased up time. OBJECTIVE: Vital signs are stable. Affect varies from restless to calm. Pulse is regular. Actively using right hand, right upper extremity, and right lower extremity. Left side still stable hemiparesis. No edema peripherally. No erythema. I+O: 1460/1600s. LABS: Sodium 141, ALT 170, AST 49, alkaline phosphatase 149. Lipid panel as per [facility]. Still elevated triglycerides. ASSESSMENT: Patient showing improved control of agitation and restlessness during the day. Reportedto be doing somewhat better at night although still not have full solid sleep. He is eating well. Contacted later in the day by staff members. Patient complaining of low back pain but he had also done standing and walking with therapies. He remains fully participatory in therapies. Team has observed that when he is wailing or crying that if he is stoppand asked to say what he needs or what he is feeling, he can stop and report if he is scared, hungry, or otherwise. Nursing feeling that he is sliding around too much othe air mattress and as he has no skin breakdown areas, would like to work with him on a regular mattress. Also feel he can use some Colace as his bowels are not moving well. Ani have problems with constipation or slowed bowel movements when he was last here. Reviewed I+O sheet with nursingand requested they clarify that they are recording fluids that he is getting from his trays as well as just the free fluids that he gets. Reviewed his liver function test results and lipid panel with Dr. Castañeda. The patient overall has made some significant gains since the initial onset of his CVAs and has certainly shown improvements from when he was on rehab Speech output is improved. Cooperation has improved. Ability to moderate and manage his agitation and restlessness is improving. Dr. Castañeda is considering what antilipid drug might best serve himWith his sodium presently, if it goes up again tomorrow , he may need to have increased fluids given per PEG. PLAN: 1. Colace added. 2. Lactulose given as a p.r.n. for bowels. 3. Discontinue air mattress. 4. Continue daily sodiums. 5. Continue full program. (Total time 70 minutes, greater than 50% direct patient and family contact, evaluation, discussion,and care coordination with team.) Signed by Allison Alarcon MD 01/21/2005 08:40 Sky Hollingsworth MD Allison Alarcon MD - Allison Alarcon MD P - lr Job ID: [id number] Document ID: [id number] cc: * Allison Alarcon MD - 01/16/2005 0000 EDT INPATIENT PROGRESS NOTE PT LOC: F002 Service Date: 01/16/2005 DIAGNOSIS: Bilateral CVAs. SUBJECTIVE: The patient is quiet in bed at the moment. Indicates no pain. Is expressing he is wanting to get up and get going. Some indication of nodding yes when asked about what he can visualize atthe moment, but no specific response to color questions. OBJECTIVE: Vital signs are stable, affect is easily agitated. The patient is chewing on soft rubbertoy. Will reach up to grab my hand, squeeze it, and then over squeeze it and have to have my hand pried out to release. Will often not release upon request. Continues to have left hemiparesis. LABORATORY DATA: Sodium 137. I and O: Full 24-hour cycle not completed yet. ASSESSMENT: A patient with bilateral CVAs and panhypopituitarism. Sodium acceptable at this point. Discussed his hypertriglyceridemia with Dr. Raleigh Castañeda. He feels a repeat fasting panel at this time would be helpfulto make decisions on antilipid therapy. PLAN: 1. The patient to start full eval of treatment with team. 2. Sodium tomorrow. 3. Additional labs tomorrow; lipid panel, free T4, and LFTs. 4. Air mattress for bed. Nutrition to work closely with nursing to help calculate free water content of solid foods also. Signed by Allison Alarcon MD 01/17/2005 08:37 Sky Hollingsworth MD Allison Alarcon MD - Allison Alarcon MD A - re Job ID: [id number] Document ID: [id number] cc: documented in this encounter Plan of Treatment Upcoming Encounters Date Type Department Care Team (Late st Contact Info) Description 09/09/2024 10:20 EST Office Visit [facility] Endocrinology - [address] [address] Day Littlejohn MD PhD [address] [place] [address] [address] [place] [address] documented as of this encounter Procedures Procedure Name Priority Date/Time Associated Diagnosis Comments SODIUM Routine 03/26/2005 6:50 EDT ALT Routine 03/22/2005 6:35 EDT AST Routine 03/22/2005 6:35 EDT ALKALINE PHOSPHATASE Routine 03/22/2005 6:35 EDT LIPID PROFILE (INCLUDES CHOLESTEROL, TRIGLYCERIDES, HDL, LDL) Routine 03/22/2005 6:35 EDT SODIUM Routine 03/20/2005 6:45 EDT SODIUM Routine 03/18/2005 6:45 EDT GLUCOSE, GLUCOMETER Routine 03/15/2005 5 :32 EDT SODIUM Routine 03/14/2005 6:25 EDT SODIUM Routine 03/13/2005 6:00 EDT SODIUM Routine 03/12/2005 17:04 EDT CREATININE Routine 03/06/2005 6:25 EDT COMPLETE BLOOD COUNT Routine 03/06/2005 6:25 EDT BUN Routine 03/06/2005 6:25 EDT T3 FREE Routine 03/06/2005 6:25 EDT T3, TOTAL Routine 03/06/2005 6:25 EDT TRIGLYCERIDE Routine 03/06/2005 6:25 EDT ALT Routine 03/06/2005 6:25 EDT AST Routine 03/06/2005 6:25 EDT T4 FREE Routine 03/06/2005 6:25 EDT PREALBUMIN Routine 03/06/2005 6:25 EDT GLUCOSE, SERUM Routine 03/06/2005 6:25 EDT ELECTROLYTES Routine 03/06/2005 6:25 EDT SODIUM Routine 03/01/2005 6:55 EDT CREATININE Routine 02/28/2005 6:30 EDT BUN Routine 02/28/2005 6:30 EDT ELECTROLYTES Routine 02/28/2005 6:30 EDT HEPATITIS C AB W REFLEX TO HCV RNA BY PCR Routine 02/26/2005 8:52 EDT HEPATITIS A TOTAL ANTIBODY W REFLEX Routine 02/26/2005 8:52 EDT HEPATITIS B SURFACE ANTIBODY Routine 02/26/2005 8:52 EDT BUN Routine 02/26/2005 8:52 EDT ALT Routine 02/26/2005 8:52 EDT AST Routine 02/26/2005 8:52 EDT SODIUM Routine 02/26/2005 8:52 EDT ALKALINE PHOSPHATASE Routine 02/26/2005 8:52 EDT ALBUMIN Routine 02/26/2005 8:52 EDT SODIUM Routine 02/24/2005 10:40 EDT SODIUM Routine 02/22/2005 6:00 EDT SODIUM Routine 02/21/2005 10:22 EDT SODIUM Routine 02/20/2005 6:00 EDT SODIUM Routine 02/18/2005 8:06 EDT ALT Routine 02/17/2005 6:20 EDT AST Routine 02/17/2005 6:20 EDT SODIUM Routine 02/17/2005 6:20 EDT SODIUM Routine 02/16/2005 6:00 EDT SODIUM Routine 02/15/2005 12:52 EDT URINALYSIS WITH MICROSCOPIC IF POSITIVE Routine 02/15/2005 10:17 EDT URINALYSIS WITH MICROSCOPIC IF POSITIVE Routine 02/15/2005 10:17 EDT UA REFLEX Routine 02/15/2005 10:17 EDT CREATININE Routine 02/15/2005 6:20 EDT BUN Routine 02/15/2005 6:20 EDT ALT Routine 02/15/2005 6:20 EDT AST Routine 02/15/2005 6:20 EDT SODIUM Routine 02/15/2005 6:20 EDT PREALBUMIN Routine 02/15/2005 6:20 EDT PHOSPHORUS Routine 02/15/2005 6:20 EDT ALKALINE PHOSPHATASE Routine 02/15/2005 6:20 EDT MAGNESIUM Routine 02/15/2005 6:20 EDT LIPID PROFILE (INCLUDES CHOLESTEROL, TRIGLYCERIDES, HDL, LDL) Routine 02/15/2005 6:20 EDT SODIUM Routine 02/13/2005 6:25 EDT SODIUM Routine 02/11/2005 6:50 EDT SODIUM Routine 02/08/2005 6:40 EDT SODIUM Routine 02/07/2005 6:00 EDT SODIUM Routine 02/06/2005 7:00 EDT ELECTROLYTES Routine 02/03/2005 10:00 EDT SODIUM Routine 02/01/2005 11:47 EDT CREATININE Routine 01/30/2005 6:45 EDT BUN Routine 01/30/2005 6:45 EDT PREALBUMIN Routine 01/30/2005 6:45 EDT ELECTROLYTES Routine 01/30/2005 6:45 EDT SODIUM Routine 01/28/2005 6:40 EDT SODIUM Routine 01/27/2005 7:10 EDT SODIUM Routine 01/26/2005 7:45 EDT SODIUM Routine 01/25/2005 11:15 EDT SODIUM Routine 01/25/2005 6:45 EDT SODIUM Routine 01/24/2005 6:45 EDT ALT Routine 01/23/2005 6:50 EDT AST Routine 01/23/2005 6:50 EDT SODIUM Routine 01/23/2005 6:50 EDT ALKALINE PHOSPHATASE Routine 01/23/2005 6:50 EDT LIPID PROFILE (INCLUDES CHOLESTEROL, TRIGLYCERIDES, HDL, LDL) Routine 01/23/2005 6:50 EDT SODIUM Routine 01/22/2005 6:25 EDT SODIUM Routine 01/21/2005 16:10 EDT SODIUM Routine 01/21/2005 6:50 EDT URINE CULTURE IF POSITIVE Routine 01/20/2005 13:30 EDT URINE CHEMICAL (DIP) & SEDIMENT (MICRO) WITHOUT REFLEX TO CULTURE Routine 01/20/2005 13:30 EDT URINE CHEMICAL (DIP) & SEDIMENT (MICRO) WITHOUT REFLEX TO CULTURE Routine 01/20/2005 13:30 EDT BACTERIAL CULTURE, URINE Routine 01/20/2005 13:30 EDT SODIUM Routine 01/20/2005 6:30 EDT SODIUM Routine 01/19/2005 7:45 EDT SODIUM Routine 01/18/2005 6:15 EDT ALT Routine 01/17/2005 6:45 EDT AST Routine 01/17/2005 6:45 EDT T4 FREE Routine 01/17/2005 6:45 EDT SODIUM Routine 01/17/2005 6:45 EDT ALKALINE PHOSPHATASE Routine 01/17/2005 6:45 EDT LIPID PROFILE (INCLUDES CHOLESTEROL, TRIGLYCERIDES, HDL, LDL) Routine 01/17/2005 6:45 EDT SODIUM Routine 01/16/2005 6:45 EDT documented in this encounter Results * SODIUM (03/26/2005 6:50 EDT) Sodium 140 136 - 145 mEq/L [facility] Comment:Performed at [facility], [place], [place] 03/26/2005 6:50 EDT 03/26/2005 7:12 EDT Allison Alarcon MD CHEMISTRY & BLOOD GA S ORDERABLES Performing Organization Address [facility] Co de Phone Number [facility] [address] [place] [address] * (ABNORMAL) LIPID PROFILE (INCLUDES CHOLESTEROL, TRIGLYCERIDES, HDL, LDL) (03/22/2005 6:35 EDT) Pathologist [facility] Cholesterol 174 mg/dl [facility] Comment: Desirable:<200 Borderline:200-239 High Risk:>xg=658 Triglycerides 675(H) 34 - 165 mg/dl [facility] Comment:Performed at [facility] [place], [place] HDL 24 mg/dl [facility] Comment: Highly Desirable:>60 Desirable:35-60 High Risk:<35 FASTING LDL, Calculated Triglyceride greater than 400 mg/dl, LDL calculation invalid. Desirable:<130 Borderline:130- 159 High Risk:>gh=020 mg/dl [facility] Comment:FASTING Chol/HDL Ratio 7.3 FASTING [facility] Fasting? Yes [facility] 03/22/2005 6:35 EDT 03/22/2005 6:49 EDT Allison Alarcon MD CHEMISTRY & BLOOD GA S ORDERABLES Performing Organization Address [facility] de Phone Number [facility] [address] [place] [address] * (ABNORMAL) AST (03/22/2005 6:35 EDT) Pathologist [facility] AST 86(H) 16 - 38 U/L [facility] Comment:Performed at [place], [place] 03/22/2005 6:35 EDT 03/22/2005 6:49 EDT Allison Alarcon MD CHEMISTRY & BLOOD GA S ORDERABLES Performing Organization Address [facility] Co de Phone Number [facility] [address] [place] [address] * (ABNORMAL) ALT (03/22/2005 6:35 EDT) Pathologist [facility] ALT 335(H) 10 - 45 U/L [facility] Comment:Performed at [place], [place] 03/22/2005 6:35 EDT 03/22/2005 6:49 EDT Allison Alarcon MD CHEMISTRY & BLOOD GA S ORDERABLES Performing Organization Address [facility] Co de Phone Number [facility] [address] [place] [address] * ALKALINE PHOSPHATASE (03/22/2005 6:35 EDT) Total Alkaline Phosphatase 309 130 - 525 U/L [facility] Comment:Performed at [place], [place] 03/22/2005 6:35 EDT 03/22/2005 6:49 EDT Allison Alarcon MD CHEMISTRY & BLOOD GA S ORDERABLES Performing Organization Address [facility] Co de Phone Number [facility] [address] [place] [address] * (ABNORMAL) SODIUM (03/20/2005 6:45 EDT) Sodium 149(H) 136 - 145 mEq/L [facility] Comment:Performed at [place], [place] 03/20/2005 6:45 EDT 03/20/2005 6:47 EDT Allison Alarcon MD CHEMISTRY & BLOOD GA S ORDERABLES Performing Organization Address [facility]/ZIP Co de Phone Number [facility] [address] [place] [address] * (ABNORMAL) SODIUM (03/18/2005 6:45 EDT) Sodium 148(H) 136 - 145 mEq/L [facility] Comment:Performed at [place], [place] 03/18/2005 6:45 EDT 03/18/2005 6:56 EDT Allison Alarcon MD CHEMISTRY & BLOOD GA S ORDERABLES [facility] [address] [place] [address] * GLUCOSE, GLUCOMETER (03/15/2005 5:32 EDT) Glucose, Fingerstick 89 70 - 110 mg/dl [facility] [employer] Machine Operator ID [id number] Test Performed by Nursing Services [facility] 03/15/2005 5:32 EDT 03/15/2005 22:32 EDT Allison Alarcon MD CHEMISTRY & BLOOD GA S ORDERABLES Performing Organization Address [facility] de Phone Number [facility] [address] [place] [address] * SODIUM (03/14/2005 6:25 EDT) Sodium 145 136 - 145 mEq/L [facility] Comment:Performed at [facility] [place] 03/14/2005 6:25 EDT 03/14/2005 6:53 EDT Allison Alarcon MD CHEMISTRY & BLOOD GA S ORDERABLES Performing Organization Address [facility] de Phone Number [facility] [address] [place] [address] * (ABNORMAL) SODIUM (03/13/2005 6:00 EDT) Sodium 152(H) 136 - 145 mEq/L [facility] Comment:Performed at [place], [place] 03/13/2005 6:00 EDT 03/13/2005 6:59 EDT Allison Alarcon MD CHEMISTRY & BLOOD GA S ORDERABLES Performing Organization Address [facility] de Phone Number [facility] [address] [place] [address] * (ABNORMAL) SODIUM (03/12/2005 17:04 EDT) Sodium 151(H) 136 - 145 mEq/L [facility] Comment:Slight hemolysis 03/12/2005 17:0 4 EDT 03/12/2005 17:05 EDT Allison Alarcon MD CHEMISTRY & BLOOD GA S ORDERABLES [facility] [address] [place] [address] * (ABNORMAL) TRIGLYCERIDE (03/06/2005 6:25 EDT) Pathologist [facility] Triglycerides 342(H) 34 - 165 mg/dl [facility] Comment:Performed at [place], [place] 03/06/2005 6:25 EDT 03/06/2005 6:32 EDT Allison Alarcon MD CHEMISTRY & BLOOD GA S ORDERABLES Performing Organization Address [facility] Co de Phone Number [facility] [address] [place] [address] * T3, TOTAL (03/06/2005 6:25 EDT) Pathologist [facility] T3, Total 147 60 - 181 ng/dl [facility] 03/06/2005 6:25 EDT 03/06/2005 6:32 EDT Allison Alarcon MD CHEMISTRY & BLOOD GA S ORDERABLES Performing Organization Address [facility] Co de Phone Number [facility] [address] [place] [address] * GLUCOSE, SERUM (03/06/2005 6:25 EDT) Pathologist [facility] Glucose, Serum 90 70 - 110 mg/dl [facility] Comment:Performed at [facility] [place] 03/06/2005 6:25 EDT 03/06/2005 6:32 EDT Allison Alarcon MD CHEMISTRY & BLOOD GA S ORDERABLES Performing Organization Address [facility] Co de Phone Number [facility] [address] [place] [address] * PREALBUMIN (03/06/2005 6:25 EDT) Pathologist [facility] Prealbumin 35 mg/dl [facility] 03/06/2005 6:25 EDT 03/06/2005 6:32 EDT Allison Alarcon MD CHEMISTRY & BLOOD CO S ORDERABLES Performing Organization Address [facility] Co de Phone Number [facility] [address] [place] [address] * (ABNORMAL) ELECTROLYTES (03/06/2005 6:25 EDT) Pathologist [facility] Sodium 147(H) 136 - 145 mEq/L [facility] Potassium 4.6 3.6 - 5.2 mEq/L [facility] Chloride 111(H) 96 - 110 mEq/L [facility] CO2 25 24 - 32 mEq/L [facility] Comment:Performed at [facility] [place] 03/06/2005 6:25 EDT 03/06/2005 6:32 EDT Allison Alarcon MD CHEMISTRY & BLOOD GA S ORDERABLES Performing Organization Address [facility] de Phone Number [facility] [address] [place] [address] * (ABNORMAL) HEMAGRAM (03/06/2005 6:25 EDT) WBC 5.50 4.5 - 13.0 K/cmm [facility] RBC 4.62 4.50 - 5.30 M/cmm [facility] Hemoglobin 12.8(L) 13.0 - 16.0 gm/dl [facility] HCT 37.4 37.0 - 49.0 % [facility] MCV 81 78 - 98 fl [facility] MCH 27.6 pg [facility] MCHC 34.1 gm/dl [facility] PLT 346(H) 156 - 312 K/cmm [facility] RDW-CV 15.2 % [facility] Comment:Performed at [facility] [employer] [place], [place] 03/06/2005 6:25 EDT 03/06/2005 6:32 EDT Allison Alarcon MD HEMATOLOGY & PF4 ORD ERABLES Performing Organization Address [facility] de Phone Number [facility] [address] [place] [address] * T4 FREE (03/06/2005 6:25 EDT) Free T4 1.0 0.8 - 1.8 ng/dl [facility] 03/06/2005 6:25 EDT 03/06/2005 6:32 EDT Allison Alarcon MD CHEMISTRY & BLOOD GA S ORDERABLES Performing Organization Address [facility] Phone Number [facility] [address] [place] [address] * T3 FREE (03/06/2005 6:25 EDT) T3, Free 2.6 2.3 - 4.2 pg/mL [facility] 03/06/2005 6:25 EDT 03/06/2005 6:32 EDT Allison Alarcon MD CHEMISTRY & BLOOD GA S ORDERABLES Performing Organization Address [facility] Phone Number [facility] [address] [place] [address] * CREATININE (03/06/2005 6:25 EDT) Creatinine 0.6 0.6 - 1.2 mg/dl [facility] Comment:Performed at [employer] [place], [place] 03/06/2005 6:25 EDT 03/06/2005 6:32 EDT Allison Alarcon MD HISTORICAL LAB FOR S Q LOAD Performing Organization Address [facility] de Phone Number [facility] [address] [place] [address] * (ABNORMAL) BUN (03/06/2005 6:25 EDT) BUN 7(L) 8 - 21 mg/dl [facility] Comment:Performed at [place], [place] 03/06/2005 6:25 EDT 03/06/2005 6:32 EDT Allison Alarcon MD CHEMISTRY & BLOOD GA S ORDERABLES Performing Organization Address [facility] de Phone Number [facility] [address] [place] [address] * (ABNORMAL) AST (03/06/2005 6:25 EDT) AST 155(H) 16 - 38 U/L [facility] Comment:Performed at [place], [place] 03/06/2005 6:25 EDT 03/06/2005 6:32 EDT Allison Alarcon MD CHEMISTRY & BLOOD GA S ORDERABLES Performing Organization Address [facility] Phone Number [facility] [address] [place] [address] * (ABNORMAL) ALT (03/06/2005 6:25 EDT) ALT 397(H) 10 - 45 U/L [facility] Comment:Performed at [place], [place] 03/06/2005 6:25 EDT 03/06/2005 6:32 EDT Allison Alarcon MD CHEMISTRY & BLOOD GA S ORDERABLES Performing Organization Address [facility] de Phone Number [facility] [address] [place] [address] * SODIUM (03/01/2005 6:55 EDT) Sodium 140 136 - 145 mEq/L [facility] Comment:Performed at [place], [place] 03/01/2005 6:55 EDT 03/01/2005 7:29 EDT lAlison Alarcon MD CHEMISTRY & BLOOD GA S ORDERABLES [facility] [address] [place] [address] * (ABNORMAL) ELECTROLYTES (02/28/2005 6:30 EDT) Sodium 143 136 - 145 mEq/L [facility] Potassium 4.2 3.6 - 5.2 mEq/L [facility] Chloride 107 96 - 110 mEq/L [facility] CO2 23(L) 24 - 32 mEq/L [facility] Comment:Performed at [facility], [place], [place] 02/28/2005 6:30 EDT 02/28/2005 8:22 EDT Allison Alarcon MD CHEMISTRY & BLOOD GA S ORDERABLES Performing Organization Address [facility]/ZIP Co de Phone Number [facility] [address] [place] [address] * CREATININE (02/28/2005 6:30 EDT) Creatinine 0.7 0.6 - 1.2 mg/dl [facility] Comment:Performed at [facility] [employer] [facility] [place], [place] 02/28/2005 6:30 EDT 02/28/2005 8:22 EDT Allison Alarcon MD HISTORICAL LAB FOR S Q LOAD Performing Organization Address City/[facility] Co de Phone Number [facility] [address] [place] [address] * BUN (02/28/2005 6:30 EDT) BUN 14 8 - 21 mg/dl [facility] Comment:Performed at [facility] [employer] [facility], [place], [place] 02/28/2005 6:30 EDT 02/28/2005 8:22 EDT Allison Alarcon MD CHEMISTRY & BLOOD GA S ORDERABLES Performing Organization Address City/[facility]/ZIP Co de Phone Number [facility] [address] [place] [address] * SODIUM (02/26/2005 8:52 EDT) Sodium 144 136 - 145 mEq/L [facility] Comment:Performed at [facility], [place], [place] 02/26/2005 8:52 EDT 02/26/2005 8:54 EDT Allison Alarcon MD CHEMISTRY & BLOOD GA S ORDERABLES Performing Organization Address [facility] de Phone Number [facility] [address] [place] [address] * HEPATITIS C ANTIBODY (02/26/2005 8:52 EDT) Hepatitis C Ab Neg [facility] 02/26/2005 8:52 EDT 02/26/2005 8:54 EDT Allison Alarcon MD CHEMISTRY & BLOOD GA S ORDERABLES Performing Organization Address [facility] de Phone Number [facility] [address] [place] [address] * HEPATITIS B SURFACE ANTIBODY (02/26/2005 8:52 EDT) Hepatitis B Surface Ab Indeterminate - consider retesting or reimmunization. [facility] 02/26/2005 8:52 EDT 02/26/2005 8:54 EDT Allison Alarcon MD CHEMISTRY & BLOOD GA S ORDERABLES Performing Organization Address [facility] de Phone Number [facility] [address] [place] [address] * HEPATITIS A TOTAL ANTIBODY (02/26/2005 8:52 EDT) Hep A Antibody Neg [facility] 02/26/2005 8:52 EDT 02/26/2005 8:54 EDT Allison Alarcon MD CHEMISTRY & BLOOD GA S ORDERABLES Performing Organization Address [facility] Co de Phone Number [facility] [address] [place] [address] * BUN (02/26/2005 8:52 EDT) BUN 14 8 - 21 mg/dl [facility] Comment:Performed at [place], [place] 02/26/2005 8:52 EDT 02/26/2005 8:54 EDT Allison Alarcon MD CHEMISTRY & BLOOD GA S ORDERABLES Performing Organization Address [facility] Co de Phone Number [facility] [address] [place] [address] * (ABNORMAL) AST (02/26/2005 8:52 EDT) AST 88(H) 16 - 38 U/L [facility] Comment:Performed at [place], [place] 02/26/2005 8:52 EDT 02/26/2005 8:54 EDT Allison Alarcon MD CHEMISTRY & BLOOD GA S ORDERABLES Performing Organization Address [facility] de Phone Number [facility] [address] [place] [address] * (ABNORMAL) ALT (02/26/2005 8:52 EDT) ALT 274(H) 10 - 45 U/L [facility] Comment:Performed at [place], [place] 02/26/2005 8:52 EDT 02/26/2005 8:54 EDT Allison Alarcon MD CHEMISTRY & BLOOD GA S ORDERABLES Performing Organization Address [facility] Co de Phone Number [facility] [address] [place] [address] * ALKALINE PHOSPHATASE (02/26/2005 8:52 EDT) Total Alkaline Phosphatase 227 130 - 525 U/L [facility] Comment:Performed at [place], [place] 02/26/2005 8:52 EDT 02/26/2005 8:54 EDT Allison Alarcon MD CHEMISTRY & BLOOD GA S ORDERABLES [facility] [address] [place] [address] * ALBUMIN (02/26/2005 8:52 EDT) Albumin 4.6 3.0 - 5.5 g/dl [facility] Comment:Performed at [place], [place] 02/26/2005 8:52 EDT 02/26/2005 8:54 EDT Allison Alarcon MD CHEMISTRY & BLOOD GA S ORDERABLES Performing Organization Address [facility] Co de Phone Number [facility] [address] [place] [address] * (ABNORMAL) SODIUM (02/24/2005 10:40 EDT) Sodium 135(L) 136 - 145 mEq/L [facility] Comment:Performed at [place], [place] 02/24/2005 10:4 0 EDT 02/24/2005 10:58 EDT Allison Alarcon MD CHEMISTRY & BLOOD GA S ORDERABLES Performing Organization Address [facility] Co de Phone Number [facility] [address] [place] [address] * SODIUM (02/22/2005 6:00 EDT) Sodium 144 136 - 145 mEq/L [facility] Comment:Performed at [place], [place] 02/22/2005 6:00 EDT 02/22/2005 6:53 EDT Allison Alarcon MD CHEMISTRY & BLOOD GA S ORDERABLES [facility] [address] [place] [address] * (ABNORMAL) SODIUM (02/21/2005 10:22 EDT) Sodium 154(H) 136 - 145 mEq/L [facility] Comment: BY F.S. Performed at [facility], [place], [place] 02/21/2005 10:2 2 EDT 02/21/2005 10:24 EDT Allison Alarcon MD CHEMISTRY & BLOOD GA S ORDERABLES Performing Organization Address [facility] de Phone Number [facility] [address] [place] [address] * (ABNORMAL) SODIUM (02/20/2005 6:00 EDT) Sodium 153(H) 136 - 145 mEq/L [facility] Comment: Sample retested, result confirmed Performed at [place], [place] 02/20/2005 6:00 EDT 02/20/2005 6:37 EDT Allison Alarcon MD CHEMISTRY & BLOOD GA S ORDERABLES Performing Organization Address [facility] de Phone Number [facility] [address] [place] [address] * SODIUM (02/18/2005 8:06 EDT) Sodium 139 136 - 145 mEq/L [facility] Comment:Performed at [place], [place] 02/18/2005 8:06 EDT 02/18/2005 8:08 EDT Allison Alarcon MD CHEMISTRY & BLOOD GA S ORDERABLES Performing Organization Address [facility] de Phone Number [facility] [address] [place] [address] * (ABNORMAL) SODIUM (02/17/2005 6:20 EDT) Sodium 149(H) 136 - 145 mEq/L [facility] 02/17/2005 6:20 EDT 02/17/2005 6:45 EDT Allison Alarcon MD CHEMISTRY & BLOOD GA S ORDERABLES Performing Organization Address City/[facility] Co de Phone Number [facility] [address] [place] [address] * (ABNORMAL) AST (02/17/2005 6:20 EDT) AST 176(H) 16 - 38 U/L [facility] 02/17/2005 6:20 EDT 02/17/2005 6:45 EDT Allison Alarcon MD CHEMISTRY & BLOOD GA S ORDERABLES Performing Organization Address [facility] Co de Phone Number [facility] [address] [place] [address] * (ABNORMAL) ALT (02/17/2005 6:20 EDT) ALT 338(H) 10 - 45 U/L [facility] 02/17/2005 6:20 EDT 02/17/2005 6:45 EDT Allison Alarcon MD CHEMISTRY & BLOOD GA S ORDERABLES Performing Organization Address [facility] Co de Phone Number [facility] [address] [place] [address] * (ABNORMAL) SODIUM (02/16/2005 6:00 EDT) Sodium 154(H) 136 - 145 mEq/L [facility] Comment:Performed at [facility] [employer] [place], [place] 02/16/2005 6:00 EDT 02/16/2005 7:48 EDT Allison Alarcon MD CHEMISTRY & BLOOD GA S ORDERABLES Performing Organization Address [facility] Co de Phone Number [facility] [address] [place] [address] * (ABNORMAL) SODIUM (02/15/2005 12:52 EDT) Sodium 155(H) 136 - 145 mEq/L [facility] Comment:Performed at [facility] [employer] [place] 02/15/2005 12:5 2 EDT 02/15/2005 12:54 EDT Allison Alarcon MD CHEMISTRY & BLOOD GA S ORDERABLES Performing Organization Address [facility] Co de Phone Number [facility] [address] [place] [address] * UA REFLEX (02/15/2005 10:17 EDT) UA Billing Microscopic not indicated. [facility] 02/15/2005 10:1 7 EDT 02/15/2005 10:31 EDT Allison Alarcon MD URINALYSIS ORDERABLE S Performing Organization Address [facility] Co de Phone Number [facility] [address] [place] [address] * URINALYSIS (02/15/2005 10:17 EDT) Color, UA [facility] Clarity, UA [facility] Glucose, UA NORM [facility] Bilirubin, UA NEG [facility] Ketones, UA NEG [facility] Specific Wells, Urine 1.005 - 1.02 [facility] Blood, UA NEG [facility] pH, UA 5.0 - 9.0 [facility] Protein, UA NEG [facility] Urobilinogen, UA NORM mg/dL [facility] Nitrite, UA NEG [facility] Leuk Esterase NEG [facility] 02/15/2005 10:1 7 EDT 02/15/2005 10:31 EDT Allison Alarcon MD URINALYSIS ORDERABLE S Performing Organization Address [facility] Co de Phone Number [facility] [address] [place] [address] * URINALYSIS (02/15/2005 10:17 EDT) Color, UA Yellow [facility] Clarity, UA Clear [facility] Glucose, UA Norm NORM [facility] Bilirubin, UA Neg [facility]G [facility] Ketones, UA Neg NEG [facility] Specific Wells, Urine 1.010 1.005 - 1.02 [facility] Blood, UA Neg NEG [facility] pH, UA 6.0 5.0 - 9.0 [facility] Protein, UA Neg NEG [facility] Urobilinogen, UA Norm NORM mg/dL [facility] Nitrite, UA Neg NEG [facility] Leuk Esterase Neg NEG [facility] 02/15/2005 10:1 7 EDT 02/15/2005 10:31 EDT Allison Alarcon MD URINALYSIS ORDERABLE S Performing Organization Address [facility] Phone Number [facility] [address] [place] [address] * (ABNORMAL) PHOSPHORUS (02/15/2005 6:20 EDT) Phosphorus 6.2(H) 2.9 - 5.4 mg/dl [facility] Comment:Performed at [employer] [employer] [place], [place] 02/15/2005 6:20 EDT 02/15/2005 6:34 EDT Allison Alarcon MD CHEMISTRY & BLOOD GA S ORDERABLES Performing Organization Address [facility] Phone Number [facility] [address] [place] [address] * PREALBUMIN (02/15/2005 6:20 EDT) Prealbumin 34 mg/dl [facility] Comment:Slightly lipemic 02/15/2005 6:20 EDT 02/15/2005 6:34 EDT Allison Alarcon MD CHEMISTRY & BLOOD GA S ORDERABLES Performing Organization Address [facility] de Phone Number [facility] [address] [place] [address] * (ABNORMAL) SODIUM (02/15/2005 6:20 EDT) Sodium 158(HH) 136 - 145 mEq/L [facility] Comment: Sample retested, result confirmed Performed at [facility] [place], [place] 02/15/2005 6:20 EDT 02/15/2005 6:34 EDT Allison Alarcon MD CHEMISTRY & BLOOD GA S ORDERABLES Performing Organization Address [facility] Co de Phone Number [facility] [address] [place] [address] * MAGNESIUM (02/15/2005 6:20 EDT) Magnesium 2.2 1.7 - 2.8 mg/dl [facility] Comment:Performed at [facility] [employer] [place], [place] 02/15/2005 6:20 EDT 02/15/2005 6:34 EDT Allison Alarcon MD CHEMISTRY & BLOOD GA S ORDERABLES Performing Organization Address [facility] de Phone Number [facility] [address] [place] [address] * (ABNORMAL) LIPID PROFILE (INCLUDES CHOLESTEROL, TRIGLYCERIDES, HDL, LDL) (02/15/2005 6:20 EDT) Cholesterol 283 mg/dl [facility] Comment: Desirable:<200 Borderline:200-239 High Risk:>ly=960 Sample retested, result confirmed Triglycerides 958(H) 34 - 165 mg/dl [facility] HDL 39 mg/dl [facility] Comment: Highly Desirable:>60 Desirable:35-60 High Risk:<35 LDL, Calculated Triglyceride greater than 400 mg/dl, LDL calculation invalid. Desirable:<130 Borderline:130- 159 High Risk:>rj=195 mg/dl [facility] Chol/HDL Ratio 7.3 [facility] Fasting? Unknown Performed at [facility] [place] [facility] 02/15/2005 6:20 EDT 02/15/2005 6:34 EDT Allison Alarcon MD CHEMISTRY & BLOOD GA S ORDERABLES Performing Organization Address City/[facility] Co de Phone Number [facility] [address] [place] [address] * CREATININE (02/15/2005 6:20 EDT) Creatinine 0.8 0.6 - 1.2 mg/dl [facility] Comment:Performed at [place], [place] 02/15/2005 6:20 EDT 02/15/2005 6:34 EDT Allison Alarcon MD HISTORICAL LAB FOR S Q LOAD Performing Organization Address [facility] Co de Phone Number [facility] [address] [place] [address] * BUN (02/15/2005 6:20 EDT) Pathologist [facility] BUN 17 8 - 21 mg/dl [facility] Comment:Performed at [place], [place] 02/15/2005 6:20 EDT 02/15/2005 6:34 EDT Allison Alarcon MD CHEMISTRY & BLOOD GA S ORDERABLES Performing Organization Address [facility] Co de Phone Number [facility] [address] [place] [address] * (ABNORMAL) AST (02/15/2005 6:20 EDT) AST 134(H) 16 - 38 U/L [facility] Comment:Performed at [place], [place] 02/15/2005 6:20 EDT 02/15/2005 6:34 EDT Allison Alarcon MD CHEMISTRY & BLOOD GA S ORDERABLES Performing Organization Address [facility] Co de Phone Number [facility] [address] [place] [address] * (ABNORMAL) ALT (02/15/2005 6:20 EDT) ALT 391(H) 10 - 45 U/L [facility] Comment:Performed at [place], [place] 02/15/2005 6:20 EDT 02/15/2005 6:34 EDT Allison Alarcon MD CHEMISTRY & BLOOD GA S ORDERABLES Performing Organization Address [facility] Co de Phone Number [facility] [address] [place] [address] * ALKALINE PHOSPHATASE (02/15/2005 6:20 EDT) Total Alkaline Phosphatase 223 130 - 525 U/L [facility] Comment:Performed at [place], [place] 02/15/2005 6:20 EDT 02/15/2005 6:34 EDT Allison Alarcon MD CHEMISTRY & BLOOD GA S ORDERABLES Performing Organization Address [facility] de Phone Number [facility] [address] [place] [address] * SODIUM (02/13/2005 6:25 EDT) Sodium 140 136 - 145 mEq/L [facility] Comment:Performed at [place], [place] 02/13/2005 6:25 EDT 02/13/2005 6:38 EDT Allison Alarcon MD CHEMISTRY & BLOOD GA S ORDERABLES Performing Organization Address [facility] de Phone Number [facility] [address] [place] [address] * (ABNORMAL) SODIUM (02/11/2005 6:50 EDT) Sodium 135(L) 136 - 145 mEq/L [facility] Comment:Performed at [place], [place] 02/11/2005 6:50 EDT 02/11/2005 7:07 EDT Allison Alarcon MD CHEMISTRY & BLOOD GA S ORDERABLES Performing Organization Address [facility] Co de Phone Number [facility] [address] [place] [address] * (ABNORMAL) SODIUM (02/08/2005 6:40 EDT) Sodium 147(H) 136 - 145 mEq/L [facility] Comment:Performed at [place], [place] 02/08/2005 6:40 EDT 02/08/2005 6:43 EDT Allison Alarcon MD CHEMISTRY & BLOOD GA S ORDERABLES Performing Organization Address [facility] de Phone Number [facility] [address] [place] [address] * SODIUM (02/07/2005 6:00 EDT) Sodium 145 136 - 145 mEq/L [facility] Comment:Performed at [place], [place] 02/07/2005 6:00 EDT 02/07/2005 6:33 EDT Allison Alarcon MD CHEMISTRY & BLOOD GA S ORDERABLES Performing Organization Address [facility] de Phone Number [facility] [address] [place] [address] * (ABNORMAL) SODIUM (02/06/2005 7:00 EDT) Sodium 146(H) 136 - 145 mEq/L [facility] Comment: Sample retested, result confirmed Performed at [place], [place] 02/06/2005 7:00 EDT 02/06/2005 7:03 EDT Allison Alarcon MD CHEMISTRY & BLOOD GA S ORDERABLES Performing Organization Address [facility] de Phone Number [facility] [address] [place] [address] * (ABNORMAL) ELECTROLYTES (02/03/2005 10:00 EDT) Sodium 135(L) 136 - 145 mEq/L [facility] Potassium 5.2 3.6 - 5.2 mEq/L [facility] Chloride 96 96 - 110 mEq/L [facility] CO2 27 24 - 32 mEq/L [facility] Comment:Performed at [place], [place] 02/03/2005 10:0 0 EDT 02/03/2005 10:19 EDT Allison Alarcon MD CHEMISTRY & BLOOD GA S ORDERABLES Performing Organization Address [facility] Phone Number [facility] [address] [place] [address] * (ABNORMAL) SODIUM (02/01/2005 11:47 EDT) Sodium 134(L) 136 - 145 mEq/L [facility] Comment:Performed at [place], [place] 02/01/2005 11:4 7 EDT 02/01/2005 11:49 EDT Allison Alarcon MD CHEMISTRY & BLOOD GA S ORDERABLES Performing Organization Address [facility] Phone Number [facility] [address] [place] [address] * PREALBUMIN (01/30/2005 6:45 EDT) Prealbumin 25 mg/dl [facility] 01/30/2005 6:45 EDT 01/30/2005 7:18 EDT Allison Alarcon MD CHEMISTRY & BLOOD GA S ORDERABLES Performing Organization Address [facility] Phone Number [facility] [address] [place] [address] * ELECTROLYTES (01/30/2005 6:45 EDT) Sodium 144 136 - 145 mEq/L [facility] Potassium 4.4 3.6 - 5.2 mEq/L [facility] Chloride 105 96 - 110 mEq/L [facility] CO2 27 24 - 32 mEq/L [facility] Comment:Performed at [place], [place] 01/30/2005 6:45 EDT 01/30/2005 7:18 EDT Allison Alarcon MD CHEMISTRY & BLOOD GA S ORDERABLES Performing Organization Address [facility] Co de Phone Number [facility] [address] [place] [address] * CREATININE (01/30/2005 6:45 EDT) Creatinine 0.7 0.6 - 1.2 mg/dl [facility] Comment:Performed at [place], [place] 01/30/2005 6:45 EDT 01/30/2005 7:18 EDT Allison Alarcon MD HISTORICAL LAB FOR S Q LOAD Performing Organization Address [facility] Co de Phone Number [facility] [address] [place] [address] * BUN (01/30/2005 6:45 EDT) BUN 12 8 - 21 mg/dl [facility] Comment:Performed at [place], [place] 01/30/2005 6:45 EDT 01/30/2005 7:18 EDT Allison Alarcon MD CHEMISTRY & BLOOD GA S ORDERABLES Performing Organization Address [facility] Co de Phone Number [facility] [address] [place] [address] * (ABNORMAL) SODIUM (01/28/2005 6:40 EDT) Sodium 151(H) 136 - 145 mEq/L [facility] Comment:Performed at [place], [place] 01/28/2005 6:40 EDT 01/28/2005 6:41 EDT Allison Alarcon MD CHEMISTRY & BLOOD GA S ORDERABLES Performing Organization Address [facility] Co de Phone Number [facility] [address] [place] [address] * (ABNORMAL) SODIUM (01/27/2005 7:10 EDT) Sodium 155(H) 136 - 145 mEq/L [facility] 01/27/2005 7:10 EDT 01/27/2005 7:40 EDT Allison Alarcon MD CHEMISTRY & BLOOD GA S ORDERABLES Performing Organization Address [facility] de Phone Number [facility] [address] [place] [address] * (ABNORMAL) SODIUM (01/26/2005 7:45 EDT) Sodium 148(H) 136 - 145 mEq/L [facility] Comment:Heparinized plasma. 01/26/2005 7:45 EDT 01/26/2005 8:47 EDT Allison Alarcon MD CHEMISTRY & BLOOD GA S ORDERABLES Performing Organization Address [facility] Phone Number [facility] [address] [place] [address] * (ABNORMAL) SODIUM (01/25/2005 11:15 EDT) Sodium 152(H) 136 - 145 mEq/L [facility] Comment:Performed at [facility], [place], [place] 01/25/2005 11:1 5 EDT 01/25/2005 11:17 EDT Allison Alarcon MD CHEMISTRY & BLOOD GA S ORDERABLES Performing Organization Address [facility] Phone Number [facility] [address] [place] [address] * (ABNORMAL) SODIUM (01/25/2005 6:45 EDT) Sodium 153(H) 136 - 145 mEq/L [facility] Comment: Sample retested, result confirmed Performed at [facility], [place], [place] 01/25/2005 6:45 EDT 01/25/2005 7:13 EDT Allison Alarcon MD CHEMISTRY & BLOOD GA S ORDERABLES Performing Organization Address [facility] Co de Phone Number [facility] [address] [place] [address] * SODIUM (01/24/2005 6:45 EDT) Sodium 140 136 - 145 mEq/L [facility] Comment:Performed at [place], [place] 01/24/2005 6:45 EDT 01/24/2005 6:53 EDT Allison Alarcon MD CHEMISTRY & BLOOD GA S ORDERABLES Performing Organization Address [facility]/State/[facility] Co de Phone Number [facility] [address] [place] [address] * SODIUM (01/23/2005 6:50 EDT) Sodium 136 136 - 145 mEq/L [facility] Comment:Performed at [place], [place] 01/23/2005 6:50 EDT 01/23/2005 7:20 EDT Allison Alarcon MD CHEMISTRY & BLOOD GA S ORDERABLES Performing Organization Address [facility] Co de Phone Number [facility] [address] [place] [address] * (ABNORMAL) LIPID PROFILE (INCLUDES CHOLESTEROL, TRIGLYCERIDES, HDL, LDL) (01/23/2005 6:50 EDT) Cholesterol 154 mg/dl [facility] Comment: Desirable:<200 Borderline:200-239 High Risk:>cb=[id number] Triglycerides 426(H) 34 - 165 mg/dl [facility] HDL 32 mg/dl [facility] Comment: Highly Desirable:>60 Desirable:35-60 High Risk:<35 Slightly lipemic LDL, Calculated Triglyceride greater than 400 mg/dl, LDL calculation invalid. Desirable:<130 Borderline:130- 159 High Risk:>kj=[id number] Slightly lipemic mg/dl [facility] Chol/HDL Ratio 4.8 Slightly lipemic [facility] Fasting? Unknown Performed at [place], [place] [facility] 01/23/2005 6:50 EDT 01/23/2005 7:20 EDT Allison Alarcon MD CHEMISTRY & BLOOD GA S ORDERABLES Performing Organization Address City/[facility]/ZIP Co de Phone Number [facility] [address] [place] [address] * (ABNORMAL) AST (01/23/2005 6:50 EDT) AST 44(H) 16 - 38 U/L [facility] Comment:Performed at [facility] [place], [place] 01/23/2005 6:50 EDT 01/23/2005 7:20 EDT Allison Alarcon MD CHEMISTRY & BLOOD GA S ORDERABLES Performing Organization Address [facility] Co de Phone Number [facility] [address] [place] [address] * (ABNORMAL) ALT (01/23/2005 6:50 EDT) ALT 105(H) 10 - 45 U/L [facility] Comment:Performed at [facility] [place], [place] 01/23/2005 6:50 EDT 01/23/2005 7:20 EDT Allison Alarcon MD CHEMISTRY & BLOOD GA S ORDERABLES Performing Organization Address [facility] Co de Phone Number [facility] [address] [place] [address] * ALKALINE PHOSPHATASE (01/23/2005 6:50 EDT) Total Alkaline Phosphatase 192 130 - 525 U/L [facility] Comment:Performed at [facility] [place], [place] 01/23/2005 6:50 EDT 01/23/2005 7:20 EDT Allison Alarcon MD CHEMISTRY & BLOOD GA S ORDERABLES Performing Organization Address [facility] Co de Phone Number [facility] [address] [place] [address] * (ABNORMAL) SODIUM (01/22/2005 6:25 EDT) Sodium 135(L) 136 - 145 mEq/L [facility] Comment:Performed at [place], [place] 01/22/2005 6:25 EDT 01/22/2005 6:34 EDT Allison Alarcon MD CHEMISTRY & BLOOD GA S ORDERABLES Performing Organization Address [facility] de Phone Number [facility] [address] [place] [address] * (ABNORMAL) SODIUM (01/21/2005 16:10 EDT) Sodium 130(L) 136 - 145 mEq/L [facility] Comment:Performed at [place], [place] 01/21/2005 16:1 0 EDT 01/21/2005 16:12 EDT Allison Alarcon MD CHEMISTRY & BLOOD GA S ORDERABLES Performing Organization Address [facility] de Phone Number [facility] [address] [place] [address] * (ABNORMAL) SODIUM (01/21/2005 6:50 EDT) Sodium 129(L) 136 - 145 mEq/L [facility] Comment:Performed at [place], [place] 01/21/2005 6:50 EDT 01/21/2005 6:59 EDT Allison Alarcon MD CHEMISTRY & BLOOD GA S ORDERABLES Performing Organization Address [facility] de Phone Number [facility] [address] [place] [address] * BACTERIAL CULTURE, URINE (01/20/2005 13:30 EDT) Specimen Description Urine [facility] Result No growth [facility] Report Status Final [id number] [facility] 01/20/2005 13:3 0 EDT 01/20/2005 16:43 EDT Allison Alarcon MD MICROBIOLOGY - GENER AL ORDERABLES Performing Organization Address [facility]/ZIP Co de Phone Number [facility] [address] [place] [address] * (ABNORMAL) UA WITH MICROSCOPIC (01/20/2005 13:30 EDT) Color, UA Yellow [facility] Clarity, UA Clear [facility] Glucose, UA Norm NORM [facility] Bilirubin, UA Neg [facility]G [facility] Ketones, UA Neg NEG [facility] Specific Wells, Urine >1.030(H) 1.005 - 1.02 [facility] Blood, UA Neg NEG [facility] pH, UA 5.5 5.0 - 9.0 [facility] Protein, UA Trace(A) NEG [facility] Urobilinogen, UA Norm NORM mg/dL [facility] Nitrite, UA Neg NEG [facility] Leuk Esterase Neg NEG [facility]SHA [facility] WBC, UA less than 1 0 - 5 /HPF [facility] RBC, UA less than 1 0 - 5 /HPF [facility] Squam Epithel, UA Few(A) NS /HPF [facility] ETCHH[facility] Renal Epithel, UA None seen NS /HPF [facility]ST[facility] Bacteria, UA None seen NS /HPF [facility] Crystals, UA None seen /HPF [facility]SHAE [facility] Hyaline Casts, UA None seen /LPF [facility] UA Comment Microscopic results are unreliable on urines unrefrig >2hrs or refrig >8hrs. [facility] Mucus, UA Present [facility] Refractometer SG,Urine 1.044(H) 1.005 - 1.02 [facility] Comment:Refractometer specif ic gravity 01/20/2005 13:3 0 EDT 01/20/2005 13:47 EDT Allison Alarcon MD URINALYSIS ORDERABLE S Performing Organization Address City/[facility]/ZIP Co de Phone Number [facility] [address] [place] [address] * UA WITH MICROSCOPIC (01/20/2005 13:30 EDT) Color, UA [facility] Clarity, UA [facility] Glucose, UA NORM [facility] Bilirubin, UA NEG [facility] Ketones, UA NEG [facility] Specific Wells, Urine 1.005 - 1.02 [facility] Blood, UA NEG [facility] pH, UA 5.0 - 9.0 [facility] Protein, UA NEG [facility] Urobilinogen, UA NORM mg/dL [facility] Nitrite, UA NEG [facility] Leuk Esterase NEG TRUE [facility] WBC, UA 0 - 5 /HPF [facility] RBC, UA 0 - 5 /HPF [facility] Squam Epithel, UA NS /HPF [facility] Renal Epithel, UA NS /HPF [facility] Bacteria, UA NS /HPF [facility]ANK[facility] Crystals, UA /HPF [facility] Hyaline Casts, UA /LPF [facility] UA Comment [facility] 01/20/2005 13:3 0 EDT 01/20/2005 13:47 EDT Allison Alarcon MD URINALYSIS ORDERABLE S Performing Organization Address [facility] de Phone Number [facility] [address] [place] [address] * CULTURE IF UA POSITIVE (01/20/2005 13:30 EDT) Culture if Indicated Culture indicated by urinalysis results. [facility] 01/20/2005 13:3 0 EDT 01/20/2005 13:47 EDT Allison Alarcon MD MICROBIOLOGY - GENER AL ORDERABLES Performing Organization Address [facility] Co de Phone Number [facility] [address] [place] [address] * SODIUM (01/20/2005 6:30 EDT) Sodium 136 136 - 145 mEq/L [facility] 01/20/2005 6:30 EDT 01/20/2005 7:06 EDT Allison Alarcon MD CHEMISTRY & BLOOD GA S ORDERABLES Performing Organization Address [facility]/ZIP Co de Phone Number [facility] [address] [place] [address] * SODIUM (01/19/2005 7:45 EDT) Sodium 143 136 - 145 mEq/L [facility] Comment: SHORT SAMPLED Performed at [facility], [place], [place] 01/19/2005 7:45 EDT 01/19/2005 7:53 EDT Allison Alarcon MD CHEMISTRY & BLOOD GA S ORDERABLES Performing Organization Address [facility] de Phone Number [facility] [address] [place] [address] * (ABNORMAL) SODIUM (01/18/2005 6:15 EDT) Sodium 135(L) 136 - 145 mEq/L [facility] Comment:Performed at [facility] [employer] [facility], [place], [place] 01/18/2005 6:15 EDT 01/18/2005 6:31 EDT Allison Alarcon MD CHEMISTRY & BLOOD GA S ORDERABLES Performing Organization Address [facility] Co de Phone Number [facility] [address] [place] [address] * SODIUM (01/17/2005 6:45 EDT) Sodium 141 136 - 145 mEq/L [facility] Comment:Performed at [facility] [employer] [facility], [place], [place] 01/17/2005 6:45 EDT 01/17/2005 6:48 EDT Allison Alarcon MD CHEMISTRY & BLOOD GA S ORDERABLES Performing Organization Address City/[facility] Co de Phone Number [facility] [address] [place] [address] * (ABNORMAL) LIPID PROFILE (INCLUDES CHOLESTEROL, TRIGLYCERIDES, HDL, LDL) (01/17/2005 6:45 EDT) Cholesterol 151 mg/dl [facility] Comment: Desirable:<200 Borderline:200-239 High Risk:>wx=[id number] Triglycerides 425(H) 34 - 165 mg/dl [facility] Comment:Performed at [place], [place] HDL 26 mg/dl [facility] Comment: Highly Desirable:>60 Desirable:35-60 High Risk:<35 LDL, Calculated Triglyceride greater than 400 mg/dl, LDL calculation invalid. Desirable:<130 Borderline:130- 159 High Risk:>ag=571 mg/dl [facility] Chol/HDL Ratio 5.8 [facility] Fasting? Unknown [facility] 01/17/2005 6:45 EDT 01/17/2005 6:48 EDT Allison Alarcon MD CHEMISTRY & BLOOD GA S ORDERABLES Performing Organization Address [facility] de Phone Number [facility] [address] [place] [address] * T4 FREE (01/17/2005 6:45 EDT) Free T4 1.3 0.8 - 1.8 ng/dl [facility] 01/17/2005 6:45 EDT 01/17/2005 6:48 EDT Allison Alarcon MD CHEMISTRY & BLOOD GA S ORDERABLES Performing Organization Address [facility] de Phone Number [facility] [address] [place] [address] * (ABNORMAL) AST (01/17/2005 6:45 EDT) AST 49(H) 16 - 38 U/L [facility] Comment:Performed at [place], [place] 01/17/2005 6:45 EDT 01/17/2005 6:48 EDT Allison Alarcon MD CHEMISTRY & BLOOD GA S ORDERABLES Performing Organization Address [facility]/State/ZIP Co de Phone Number [facility] [address] [place] [address] * (ABNORMAL) ALT (01/17/2005 6:45 EDT) ALT 170(H) 10 - 45 U/L [facility] Comment:Performed at [place], [place] 01/17/2005 6:45 EDT 01/17/2005 6:48 EDT Allison Alarcon MD CHEMISTRY & BLOOD GA S ORDERABLES Performing Organization Address [facility]/ZIP Co de Phone Number [facility] [address] [place] [address] * ALKALINE PHOSPHATASE (01/17/2005 6:45 EDT) Total Alkaline Phosphatase 149 130 - 525 U/L [facility] Comment:Performed at [place], [place] 01/17/2005 6:45 EDT 01/17/2005 6:48 EDT Allison Alarcon MD CHEMISTRY & BLOOD GA S ORDERABLES Performing Organization Address [facility] Co de Phone Number [facility] [address] [place] [address] * SODIUM (01/16/2005 6:45 EDT) Pathologist [facility] Sodium 137 136 - 145 mEq/L [facility] Comment:Performed at [place], [place] 01/16/2005 6:45 EDT 01/16/2005 7:16 EDT Allison Alarcon MD CHEMISTRY & BLOOD GA S ORDERABLES Performing Organization Address City/[facility]/ZIP Co de Phone Number [facility] [address] [place] [address] documented in this encounter Visit Diagnoses Not on filedocumented in this encounter
--- OUTSIDE RECORDS SUMMARY | 2024-03-05 15:51 | XMS_ITS | Encounter Summary ---
Author Organization [facility] Address [address] [place] [address] Care Team Providers Care Interior Paneler Name Role Phone Corin Skinner MD Primary Care Provider [phone] Encounter Details Date Type Department Care Team (Late st Contact Info) Description 05/23/2006 Before PRISM Converted Visit (Maple) [facility] - Maple conversion [address] [place] [address] Marvin Perez MD [address] [place] [phone] Social History Tobacco Use Types Packs/Day Years Used Date Smoking Tobacco: Never Assessed Sex and Gender Information Value Date Recorded Sex Assigned at Not on file Gender Identity Not on file Sexual Orientation Not on file documented as of this encounter Progress Notes * Marvin Perez - 06/30/2009 1502 EST DIVISION OF NEUROSURGERY PROGRESS/FOLLOWUP NOTE - 05/23/2006 May 23, 2006 Kris Drew MD [address] [place] [id number] Drew: Miguel Angel Burgos was in to see me. He is 1 year from his most recent MRI. 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 The 1stapproach was through a transsphenoidal avenue. The 2nd, intracranial. He had a resultant stroke as well . Miguel Angel Sweettomylast MRI showed some residual tumor and his repeat MRI today shows some decreased enhancement in this region. We will review this with our neuroradiologist as well to confirm. His care givers are most concerned that he has displayed some more violentbehaviors recently. He also has developed some compulsive behaviors including touching of his hands to his eyes, his mouth and occasionally down toward his groin. I cannot explain these behaviors based on his MRI. He is clearly neurologically impaired and I think that a consultation with a behavioral psychologist may be of some interest as well. Unfortunately,Miguel Angel is living about [place] hour [place] a half south of [place], [place] and this is quite a trip for him to make. He and his family would like to considereither going to [place] or [place] for followup but I would also be happy to see him in followup for the MRIs. I think at the very least, we could perhaps look toward a behavioral psychologist closer to their area. We will help them in this regard and givethem a call next week. If they should decide to pursue care closer to home, we could help arrange this as well. Thank you again. Sincerely, Signed by Marvin Perez MD 06/02/2006 10:50 Anastasiya Perez MDAssociate ProfessorRockingham Memorial HospitalDivision of Neurological SurgeryMarvin Perez MD Marvin Perez MD Tax Examining Technician [facility] Division of Neurological Surgery - Sunni Perez MD P - bb Job ID: [id number] Document ID: [id number] cc: Kris Drew MD documented in this encounter Plan of Treatment Upcoming Encounters Date Type Department Care Team (Late st Contact Info) Description 09/09/2024 10:20 EST Office Visit [facility] Endocrinology - [address] [address] Day Littlejohn MD PhD [address] [place] [address] [address] [place] [phone] documented as of this encounter Visit Diagnoses Not on filedocumented in this encounter Care Teams Interior Paneler Relationship Specialty Start Date End Date Corin Skinner MD [address] [place] [phone] PCP - General 10/24/08 08/21/09 documented as of this encounter
--- OUTSIDE RECORDS SUMMARY | 2024-03-05 15:51 | XMS_ITS | Encounter Summary ---
Author Organization [facility] Address [address] [place] [address] Care Team Providers Care Wet Sander Name Role Phone Yan Demarco MD Primary Care Provider Corin Skinner MD Primary Care Provider [phone] Encounter Details Date Type Department Care Team (Late st Contact Info) Description 01/31/2005 Before PRISM Converted Visit (Maple) [facility] - Maple conversion [address] [place] [address] Wicho Carlton MD [address] [place] [address] Social History Tobacco Use Types Packs/Day Years Used Date Smoking Tobacco: Never Assessed Sex and Gender Information Value Date Recorded Sex Assigned at Not on file Gender Identity Not on file Sexual Orientation Not on file documented as of this encounter Progress Notes * Wicho Carlton MD - 09/07/2009 0925 EST INPATIENT PROGRESS NOTE PT LOC: Service Date: 01/31/2005 Miguel Angel is indicating some mild lower abdominal discomfort. He has been participating in therapies. Vital signs are stable, afebrile. Heart regular, lungs clear. His abdomen is somewhat tense. Bowel sounds are present, but there is some minimal tenderness with deep palpation. IMPRESSION: 1. GI: It appears he is likely constipated. We will follow up with some Lactulose through his G tube today. 2. Hyponatremia: Given current intervention with his GI tract, we will recheck his sodium levels tomorrow. Signed by Wicho Carlton MD 02/01/2005 14:35 Nadine Garcia MD Wicho Carlton MD - Wicho Carlton MD P - ss Job ID: [id number] Document ID: [id number] cc: documented in this encounter Plan of Treatment Upcoming Encounters Date Type Department Care Team (Late st Contact Info) Description 09/09/2024 10:20 EST Office Visit [facility] Endocrinology - [address] [address] Day Littlejohn MD PhD [address] [place] [phone] documented as of this encounter Visit Diagnoses Not on filedocumented in this encounter Care Teams Wet Sander Relationship Specialty Start Date End Date Yna Demarco MD [address] [place] [phone] PCP - General 08/22/09 02/20/10 Corin Skinner MD [address] [place] [phone] PCP - General 10/24/08 08/21/09 documented as of this encounter
--- OUTSIDE RECORDS SUMMARY | 2024-03-05 15:51 | XMS_ITS | Encounter Summary ---
Author Organization [facility] Address [address] [place] [address] Care Team Providers Care Blindstitch Machine Operator Name Role Phone Corin Skinner MD Primary Care Provider [phone] Encounter Details Date Type Department Care Team (Late st Contact Info) Description 02/11/2007 Before PRISM Converted Visit (Maple) [facility] - Maple conversion [address] [place] [address] Skyler Edwards [facility] [address] [place] [phone] Social History Tobacco Use Types Packs/Day Years Used Date Smoking Tobacco: Never Assessed Sex and Gender Information Value Date Recorded Sex Assigned at Not on file Gender Identity Not on file Sexual Orientation Not on file documented as of this encounter Progress Notes * Skyler Edwards MD - 05/16/2009 1602 EST PROGRESS/FOLLOWUP NOTE - February 11, 2007 Ren Lynch MD [address], [address] [place] [address] 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 His stepmother and aunt accompanied him to the visit. Miguel Angel is now 16 years and 8 months old. He moved back with his father and stepmother in August 2006. He has made remarkable progress since that move. His vocabulary is increasing, and he is now walking much more without assistance. He has also been able to stop many of his behavioral medications and stepmother states that his behavior overall is much improved with decreased aggression. One of his main issue at this time is sleeping difficulties for which his medications have continued to be modified. Since our last visit, he has had one diarrheal illness in November 2006 for which he was appropriately stress covered with corticosteroids. Otherwise, stepmother states that his energy level seems stable. They are controlling his overall caloric intake and limiting him to 1400 calories per day. His fluids are limited to 2 liters per day.There has been some variability noted subjectively for his urine output although serial sodiums have been stable, the most recent one being on February 06, 2007 which was 141 with a normal electrolyte panel, fasting glucose of 80, total cholesterol 122, triglycerides 202, HDL 26 and LDL 56. There was no thyroid function test obtained at that blood draw. Stepmother denies any temperature instability,skin changes, irregular bowel movements, or tremors. There has been slight increase in the amount of pubic hair. He is having spontaneous erections but no priapism. He still is having self-stimulatory behaviors but these are for the most part controllable. The remainder of a thorough review of systems was otherwise noncontributory. He remains on: 1. DDAVP 0.15 mg t.i.d. 2. Levothyroxine 150 mcg daily. 3. Cortef 10 mg every AM, 5 mg every afternoon, and 5 mg nightly. 4. Testosterone enanthate 200 mg IM every 28 days. 5. Niacin 100 mg t.i.d. 6. Caltrate two tablets daily. 7. Docusate one tablet b.i.d. 8. Seroquel 200 mg nightly. 9. Lunesta one tablet nightly. 10. Melatonin 3 mg nightly. On physical exam, Miguel Angel walked into the office today without any assistance for the first time since his surgery . His weight was 91 kg. Vital signs revealed a blood pressure of 122/73 with a restingpulse of 87. He appeared comfortable and well hydrated. Head and neck exam revealed moist mucous membranes and a clear oropharynx. He was unable to track on visual exam. There was no palpable goiter. Cardiorespiratory exam was unremarkable. Abdominal exam was benign. Neurologic exam was notable for2+ deep tendon reflexes and no tremor. Skin temperature, texture and turgor were normal. Sexual development was rated as Devonte stage IV for pubic hair. I was extremely pleased to see the remarkable progress that Miguel Angel has made since our last visit. 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 His most recent sodium was in the target range, and he appears to be clinically well controlled on his current fluid regimen and DDAVP doses. I recommend continuing to check serum sodiums every two months. 2. ACTH deficiency. He is currently on physiologic corticosteroid replacement. Stepmother has a good understanding of the indications for stress coverage and has an up-to-date stress letter. 3. TSH deficiency. Miguel Angel is clinically euthyroid on today's exam. He is due for a repeat free T4 level with his next blood draw. Please keep in mind that TSH results are of limited value as he has central hypothyroidism, and I will titrate his medications based on the free T4 levels. 4. Hypogonadotropic hypogonadism. He has shown good clinical response to his testosterone injections. We will maintain him on testosterone enanthate 200 mg IM every 28 days. We did review the possibility of an eventual need for increased frequency of injections. 5. Bone health. Miguel Angel remains on adequate calcium and vitamin D intake, and I am extremely pleased with the increased weightbearing activities which will also improve bone health. 6. Growth hormone deficiency. The potential for adult growth hormone replacement may be considered in the future although at this time, we will wait further documentation of tumor stability prior to pursuing this option. I am extremely pleased with the other measures being taken to assure adequate bone health. I recommended that mother contact your office to determine where his neurosurgical followup will bemade and in order to schedule his annual surveillance MRI. I will see Miguel Angel again in clinic in six months. Thank you for allowing me to participate in the care of this patient. If you have any further questions or concerns, please do not hesitate to contact me. Sincerely, Signed by Skyler Edwards MD 02/13/2007 14:11 Lincoln Edwards, [facility] [id number] James Zimakas, [facility] Von Edwards, [facility] [phone] Skyler Edwards MD Division of Pediatric Endocrinology [phone] Skyler Edwards MD P - YASMINE Job ID: [id number] Doc ID: [id number] cc: Ren Lynch MD - Skyler Edwards MD P - yasmine Job ID: [id number] Doc ID: [id number] cc: MD Kris Ricks MD documented in this encounter Plan of Treatment Upcoming Encounters Date Type Department Care Team (Late st Contact Info) Description 09/09/2024 10:20 EST Office Visit [facility] Endocrinology - [address] [address] Day Littlejohn MD PhD [address] [place] [phone] documented as of this encounter Visit Diagnoses Not on filedocumented in this encounter Care Teams Blindstitch Machine Operator Relationship Specialty Start Date End Date Corin Skinner MD [address] [place] [phone] PCP - General 10/24/08 08/21/09 documented as of this encounter
--- OUTSIDE RECORDS SUMMARY | 2024-03-05 15:51 | XMS_ITS | Encounter Summary ---
Author Organization [facility] Address [address] [place] [address] Care Team Providers Care Biofuels Plant Construction Worker Name Role Phone Yan Demarco MD Primary Care Provider Corin Skinner MD Primary Care Provider Akil Serrano MD Primary Care Provider [phone] Encounter Details Date Type Department Care Team (Late st Contact Info) Description 08/19/2007 Results Only [facility] - [facility] [address] [place], [place] [phone] [facility] [address] [place] [phone] Social History Tobacco Use Types Packs/Day Years Used Date Smoking Tobacco: Never Assessed Sex and Gender Information Value Date Recorded Sex Assigned at Not on file Gender Identity Not on file Sexual Orientation Not on file documented as of this encounter Plan of Treatment Upcoming Encounters Date Type Department Care Team (Late st Contact Info) Description 09/09/2024 10:20 EST Office Visit [facility] Endocrinology - [address] [address] Day Littlejohn MD PhD [address] [place] [address] [address] [place] [phone] documented as of this encounter Procedures Procedure Name Priority Date/Time Associated Diagnosis Comments T4 FREE Routine 08/19/2007 11:15 EST TESTOSTERONE Routine 08/19/2007 11:15 EST LH Routine 08/19/2007 11:15 EST FSH Routine 08/19/2007 11:15 EST COMPREHENSIVE METABOLIC PANEL (CMP) Routine 08/19/2007 11:15 EST documented in this encounter Results * (ABNORMAL) TESTOSTERONE (08/19/2007 11:15 EST) Testosterone, Total 100(L) 241 - 827 ng/dL [facility] 08/19/2007 11:1 5 EST 08/19/2007 11:20 EST Skyler Edwards [facility] CHEMIS TRY & BLOOD GAS ORDERABLES Performing Organization Address [facility] de Phone Number [facility] [address] [place] [address] * LH (08/19/2007 11:15 EST) LH <0.1 mIU/ml [facility] 08/19/2007 11:1 5 EST 08/19/2007 11:20 EST Skyler Edwards [facility] CHEMIS TRY & BLOOD GAS ORDERABLES Performing Organization Address [facility] de Phone Number [facility] [address] [place] [address] * T4 FREE (08/19/2007 11:15 EST) Free T4 0.8 0.8 - 1.5 ng/dL [facility] 08/19/2007 11:1 5 EST 08/19/2007 11:20 EST Skyler Edwards [facility] CHEMIS TRY & BLOOD GAS ORDERABLES [facility] [address] [place] [address] * FSH (08/19/2007 11:15 EST) FSH <0.3 mIU/ml [facility] 08/19/2007 11:1 5 EST 08/19/2007 11:20 EST Skyler Edwards [facility] CHEMIS TRY & BLOOD GAS ORDERABLES [facility] [address] [place] [address] * (ABNORMAL) COMPREHENSIVE METABOLIC PANEL (08/19/2007 11:15 EST) Pathologist [facility] Potassium 3.7 3.5 - 5.0 mEq/L [facility] Sodium 118(LL) 136 - 145 mEq/L [facility] Comment:Sample retested, res ult confirmed Chloride 81(L) 96 - 110 mEq/L [facility] CO2 26 24 - 32 mEq/L [facility] Total Alkaline Phosphatase 150 65 - 260 U/L [facility] Bilirubin, Total 0.5 0.0 - 1.4 mg/dl [facility] AST 33 15 - 46 U/L [facility] ALT 40 0 - 45 U/L [facility] Albumin 4.9 3.0 - 5.5 g/dl [facility] Total Protein 7.9 6.3 - 8.6 g/dl [facility] Creatinine 0.67 0.6 - 1.2 mg/dl [facility] GFR, Calculated Age <18 ml/min/1.7 3m2 [facility] BUN 6(L) 8 - 21 mg/dl [facility] Calcium 9.0 8.5 - 10.5 mg/dl [facility] Calculated Calcium 8.5 8.5 - 10.5 mg/dl [facility] Glucose, Serum 81 70 - 100 mg/dl [facility] Fasting? No [facility] 08/19/2007 11:1 5 EST 08/19/2007 11:20 EST Skyler Longoria Lamonte Grace MDCM CHEMIS TRY & BLOOD GAS ORDERABLES [facility] [address] [place] [address] documented in this encounter Visit Diagnoses Not on filedocumented in this encounter Care Teams Biofuels Plant Construction Worker Relationship Specialty Start Date End Date Yan Demarco MD [address] [place] [phone] PCP - General 08/22/09 02/20/10 Corin Skinner MD [address] [phone] PCP - General 10/24/08 08/21/09 Akil Serrano MD [address] [facility] [address] [place] [address] PCP - General 02/21/10 04/16/11 documented as of this encounter
--- OUTSIDE RECORDS SUMMARY | 2024-03-05 15:51 | XMS_ITS | Encounter Summary ---
Author Organization [facility] Address [address] [place] [address] Care Team Providers Care Display Fabrication Supervisor Name Role Phone Unavailable Primary Care Provider Unavailabl e Encounter Details Date Type Department Care Team (Latest Contact Info) Description 05/15/2007 6:45 EST - 05/15/2007 11:59 EST Hospital Encounter [facility] Perioperative Services- [facility] [address] [place], [place] [phone] Mravin Perez MD [address] [place] [phone] Discharge Disposition: Home or Self Care Social [...] Description 09/09/2024 10:20 EST Office Visit [facility] Endocrinology - [address] [address] Day Littlejohn MD PhD [address] [place] [address] [address] [place] [phone] documented as of this encounter Procedures Procedure Name Priority Date/Time Associated Diagnosis Comments MR HEAD W/WO CONTRAST 05/15/2007 9:26 EST documented in this encounter Results * MR HEAD W/WO CONTRAST (05/15/2007 9:26 EST) Anatomical Region Laterality Modality Other 05/15/2007 9:26 EST Narrative 12/26/2008 2:08 EDT 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 History: Craniopharyngioma postresection, question recurrence. Comparison: May 23, 2006 in August 13, 2005. Technique: Sagittal T1 FLAIR, axial gradient, axial T2 flair, axial T1, coronal T1, axial T1 postcontrast, coronal T1 postcontrast, sagittal T1 postcontrast, and a diffusion-weighted images of the brain were obtained. Findings: The patient is status post right frontotemporal craniotomy. Encephalomalacia and gliosis is again noted within the right frontal lobe, unchanged from prior examination. A vascular clip is present near the basilar artery which causes artifact in this region. Again there is encephalomalacia in both left and right thalami. ??Again noted is an enhancing nodule within the right suprasellar region compatible with residual tumor. This is somewhat smaller than on the prior examination (about 7mm in diameter on today's study vs. 11 mm in diameter on the previous exam). ??This change may be the result of interval partial involution of the cystic component of the lesion. Small, slightly more anteroinfero components of enhancement along the resection cavity are not significantly changed. ??Smooth dural enhancement, likely post-surgical, is stable. ??No new areas of enhancement are identified. A posterior fossa arachnoid cyst is unchanged. The sphenoid sinuses are nearly completely opacified and there is mucosal thickening within the maxillary sinuses and ethmoid air cells. This finding is similar to prior study. Impression: 1. Interval decrease in size of the residual tumor nodule in the left suprasellar area, likely representing involution of the cystic portion of the nodule. 2. No new enhancement identified. 3. Postsurgical changes from right frontotemporal craniotomy. 4. Right frontal and bithalamic encephalomalacia. 5. Maxillary, ethmoid, and sphenoid sinus disease. I have personally reviewed the images and the above interpretation and agree with the findings. 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 History: Craniopharyngioma postresection, question recurrence. Comparison: May 23, 2006 in August 13, 2005. Technique: Sagittal T1 FLAIR, axial gradient, axial T2 flair, axial T1, coronal T1, axial T1 postcontrast, coronal T1 postcontrast, sagittal T1 postcontrast, and a diffusion-weighted images of the brain were obtained. Findings: The patient is status post right frontotemporal craniotomy. Encephalomalacia and gliosis is again noted within the right frontal lobe, unchanged from prior examination. A vascular clip is present near the basilar artery which causes artifact in this region. Again there is encephalomalacia in both left and right thalami. Again noted is an enhancing nodule within the right suprasellar region compatible with residual tumor. This is somewhat smaller than on the prior examination (about 7mm in diameter on today's study vs. 11 mm in diameter on the previous exam). This change may be the result of interval partial involution of the cystic component of the lesion. Small, slightly more anteroinfero components of enhancement along the resection cavity are not significantly changed. Smooth dural enhancement, likely post-surgical, is stable. No new areas of enhancement are identified. A posterior fossa arachnoid cyst is unchanged. The sphenoid sinuses are nearly completely opacified and there is mucosal thickening within the maxillary sinuses and ethmoid air cells. This finding is similar to prior study. Impression: 1. Interval decrease in size of the residual tumor nodule in the left suprasellar area, likely representing involution of the cystic portion of the nodule. 2. No new enhancement identified. 3. Postsurgical changes from right frontotemporal craniotomy. 4. Right frontal and bithalamic encephalomalacia. 5. Maxillary, ethmoid, and sphenoid sinus disease. I have personally reviewed the images and the above interpretation and agree with the findings. Marvin Perez MD IMG MRI ORDERABLES documented in this encounter Visit Diagnoses Not on filedocumented in this encounter
--- OUTSIDE RECORDS SUMMARY | 2024-03-05 15:51 | XMS_ITS | Encounter Summary ---
Author Organization [facility] Address [address] [place] [address] Care Team Providers Care Central Office Trouble Shooter Name Role Phone Unavailable Primary Care Provider Unavailabl e Encounter Details Date Type Department Care Team (Late st Contact Info) Description 05/23/2006 7:52 EST - 05/23/2006 11:59 EST Hospital Encounter [facility] Perioperative Services- [facility] [address] [place], [place] [phone] Jason Olea MD [address] [facility] [place] [address] Marvin Perez MD [address] [place] [phone] Discharge Disposition: Home or Self Care [...] 09/09/2024 10:20 EST Office Visit [facility] Endocrinology - [place] [address] [place] [address] Day Littlejohn MD PhD [address] [facility] [address] [place] [address] documented as of this encounter Procedures Procedure Name Priority Date/Time Associated Diagnosis Comments MR HEAD W/WO CONTRAST 05/23/2006 11:53 EST documented in this encounter Results * MR HEAD W/WO CONTRAST (05/23/2006 11:53 EST) Anatomical Region Laterality Modality Other 05/23/2006 11:5 3 EST Narrative 01/14/2009 1:32 EDT PT. TO WP3 FOR ANESTHESIA. S/P TUMOR RESECTOIN 10/12/04. R/O CVA. EVALUATE FOR TUMOR REGROWTH, RESIDUAL TUMOR CHANGES. MRI OF THE BRAIN, 05/23/2006: TIME: ??10:50 a.m. IMPRESSION: 1. ? Status post previous right frontal temporal craniotomy for resection of craniopharyngioma. 2. ? Enhancing tumor in the suprasellar area off ??the midline on the right side, no change. 3. ? Left mastoid effusion. 4. ? Tissue loss in the right and left thalami. 5. ? Sphenoid sinus opacification. CLINICAL HISTORY: ??Status post tumor resection in 10/2004. ??Follow-up examination. TECHNIQUE: Transverse non-contrast CT scans of the brain were performed from the foramen magnum to the vertex. COMPARISON EXAMINATION: ??MRI of the brain on 08/13/2005. FINDINGS: ??Craniotomy changes are identified in the right frontal and temporal region. ??A lobulated enhancing mass is again demonstrated in the suprasellar cistern off the midline on the right side, measuring about 8 X 11 X 12 mm. ??This tumor remains stable, as compared to the earlier study. ??A vascular clip is again seen in place near the basilar artery. ??Tissue loss is again identified in the right and left thalami. ??Left mastoid effusion is noted. ??A good part of the sphenoid sinus is opacified. ??The third and lateral ventricles are dilated due to tissue loss. ??Normal flow void ??is seen in the intracranial vessels. [id number] D: ??05/24/2006 11:09 T: ??05/26/2006 17:31 Addendum Begins MRI of the brain was done with and without IV contrast. Addendum Ends Procedure Note Sandra Zavala MD - 01/14/2009 PT. TO WP3 FOR ANESTHESIA. S/P TUMOR RESECTOIN 10/12/04. R/O CVA. EVALUATE FOR TUMOR REGROWTH, RESIDUAL TUMOR CHANGES. MRI OF THE BRAIN, 05/23/2006: TIME: 10:50 a.m. IMPRESSION: 1. Status post previous right frontal temporal craniotomy for resection of craniopharyngioma. 2. Enhancing tumor in the suprasellar area off the midline on the right side, no change. 3. Left mastoid effusion. 4. Tissue loss in the right and left thalami. 5. Sphenoid sinus opacification. CLINICAL HISTORY: Status post tumor resection in 10/2004. Follow-up examination. TECHNIQUE: Transverse non-contrast CT scans of the brain were performed from the foramen magnum to the vertex. COMPARISON EXAMINATION: MRI of the brain on 08/13/2005. FINDINGS: Craniotomy changes are identified in the right frontal and temporal region. A lobulated enhancing mass is again demonstrated in the suprasellar cistern off the midline on the right side, measuring about 8 X 11 X 12 mm. This tumor remains stable, as compared to the earlier study. A vascular clip is again seen in place near the basilar artery. Tissue loss is again identified in the right and left thalami. Left mastoid effusion is noted. A good part of the sphenoid sinus is opacified. The third and lateral ventricles are dilated due to tissue loss. Normal flow void is seen in the intracranial vessels. [id number] Addendum Begins MRI of the brain was done with and without IV contrast. Addendum Ends Jason Olea MD IMG MRI ORDERABLES documented in this encounter Visit Diagnoses Not on filedocumented in this encounter
--- OUTSIDE RECORDS SUMMARY | 2024-03-05 15:52 | XMS_ITS | Encounter Summary ---
Author Organization [facility] Address [address] [place] [address] Care Team Providers Care Stone Finisher Name Role Phone Yan Demarco MD Primary Care Provider [phone] Corin Skinner MD Primary Care Provider [phone] Akil Serrano MD Primary Care Provider [phone] Yossi Torres MD Primary Care Provider [phone] Emilee Cody MD Primary Care Provider + Ren Vaz MD Primary Care Provider [phone] Encounter Details Date Type Department Care Team (Late st Contact Info) Description 01/01/2005 Before PRISM Converted Visit (Maple) [facility] Rehabilitation Therapy - [address] [phone] Allison Alarcon MD [address] [place] [phone] Social History Tobacco Use Types Packs/Day Years [...] [facility] Endocrinology - [address] [id number] Day Littlejohn MD PhD [address] [facility] [address] [place] [address] documented as of this encounter Procedures Procedure Name Priority Date/Time Associated Diagnosis Comments CT ABDOMEN, PELVIS W CONTRAST 01/01/2005 3:56 EDT documented in this encounter Results * CT ABDOMEN, PELVIS W CONTRAST (01/01/2005 3:56 EDT) Anatomical Region Laterality Modality Other 01/01/2005 3:56 EDT Narrative 02/09/2009 3:32 EDT V57.[address] SCAN OF THE ABDOMEN AND PELVIS: 01/01/2005 INDICATION FOR STUDY: Abdominal pain, rule out obstruction. No comparison. TECHNIQUE ABDOMEN: ??Prior to the examination, the patient was given oral contrast. ??During the intravenous administration of 150 cc of 300 mg% nonionic contrast at a rate of 2 cc/second, helical images were obtained from the domes of the diaphragms to the iliac crests. TECHNIQUE PELVIS: ??Immediately after the above preparation, axial images were obtained from the iliac crests to the ischial tuberosities. FINDINGS: The liver is diffusely fatty, but no focal lesions are identified within it except for areas of more normal attenuation around the gallbladder, consistent with fatty sparing. ??The spleen, pancreas, gallbladder, adrenal glands, and kidneys are normal. ??There is a gastrostomy tube in the stomach. ??The bowel is otherwise normal in appearance and caliber without evidence of obstruction. ??There is no free air, free fluid, or inflammation in the abdomen or pelvis. There is no significant adenopathy. ??The vascular structures enhance normally. On images through the lower chest, the heart is normal and the lung bases are clear. ??The bones are normal. IMPRESSIONS: 1. ??Diffuse fatty infiltrated liver with focal areas of sparing around the gallbladder. 2. ??Gastrostomy tube. 3. ??Normal-appearing bowel without evidence of obstruction. /nell I have personally reviewed the images and the above interpretation and agree with the findings. Procedure Note Mehta, Otto, MD / Herve Woods MD - 02/09/2009 V57.[address] SCAN OF THE ABDOMEN AND PELVIS: 01/01/2005 INDICATION FOR STUDY: Abdominal pain, rule out obstruction. No comparison. TECHNIQUE ABDOMEN: Prior to the examination, the patient was given oral contrast. During the intravenous administration of 150 cc of 300 mg% nonionic contrast at a rate of 2 cc/second, helical images were obtained from the domes of the diaphragms to the iliac crests. TECHNIQUE PELVIS: Immediately after the above preparation, axial images were obtained from the iliac crests to the ischial tuberosities. FINDINGS: The liver is diffusely fatty, but no focal lesions are identified within it except for areas of more normal attenuation around the gallbladder, consistent with fatty sparing. The spleen, pancreas, gallbladder, adrenal glands, and kidneys are normal. There is a gastrostomy tube in the stomach. The bowel is otherwise normal in appearance and caliber without evidence of obstruction. There is no free air, free fluid, or inflammation in the abdomen or pelvis. There is no significant adenopathy. The vascular structures enhance normally. On images through the lower chest, the heart is normal and the lung bases are clear. The bones are normal. IMPRESSIONS: 1. Diffuse fatty infiltrated liver with focal areas of sparing around the gallbladder. 2. Gastrostomy tube. 3. Normal-appearing bowel without evidence of obstruction. /tns I have personally reviewed the images and the above interpretation and agree with the findings. Allison Alarcon MD IMG CT ORDERABLES documented in this encounter Visit Diagnoses Not on filedocumented in this encounter Care Teams Stone Finisher Relationship Specialty Start Date End Date Yan Demarco MD [address] [place] [phone] PCP - General 08/22/09 02/20/10 Corin Skinner MD [address] [place] [phone] PCP - General 10/24/08 08/21/09 Akil Serrano MD [address] [facility] [facility] [address] [place], [place] [address] PCP - General 02/21/10 04/16/11 Yossi Torres MD [address] [place] [address] [address] [place] [phone] PCP - General 04/17/11 03/14/16 Emilee Cody MD [address] [place] [address] [address] [place] [phone] PCP - General 03/15/16 09/29/18 Ren Vaz MD [address] [place] [address] [place] [address] PCP - General 09/30/18 documented as of this encounter
--- OUTSIDE RECORDS SUMMARY | 2024-03-05 15:52 | XMS_ITS | Encounter Summary ---
Author Organization [facility] Address [address] [place] [address] Care Team Providers Care Director Public Service Name Role Phone Yan Demarco MD Primary Care Provider [phone] Corin Skinner MD Primary Care Provider Akil Serrano MD Primary Care Provider [phone] Encounter Details Date Type Department Care Team (Late st Contact Info) Description 11/27/2004 Before PRISM Converted Visit (Maple) 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 SUBJECTIVE: Patient observed during co-treatment therapies several times during the day. Patient inconsistently having some response to request and command to therapists that he is familiar with. Speech reports that it cannotget consistent yes/no out of him to further assess and narrow down his pain issues. Nursing noting redness to the left axilla. Mom present intermittently during the day and at night. OBJECTIVE: Vital signs are stable. Affect remains without eye contact with limited response to verbal and physical contact or cuing from myself but inconsistently when up in chair with therapies. Heart: S1, S2 regular. Slightly tachy. Lungs are clear. Has left hemiplegia. At times, wailing when left alone in the room. Wailing not quieted with verbal contact and physical touch. LABS: TSH 0.15, T4 free 1.2, BUN 21, sodium 137. TEAM ROUNDS: Patient's present functional status, discharge goals and barriers reviewed. Patient presents with many complex issues. Social work has been working on being able to establish transfer [facility] to [facility]. Team supports, at this point, that we are probably looking at making that transition towards the end of next week on December 07. Teams concerns reviewed in terms of moms interaction and participation and how to work with her around this. Also additional extended discussion with VETERINARY PHYSIOLOGIST regarding best modes of communication and management styles for both patient and mom. PLAN: 1. Continues to be appropriate for acute inpatient rehab. 2. We will trial an increase of amantadine. 3. Continue present water intake. 4. Will follow up with Dr. Edwards regarding TSH results. (Total time 45 minutes, greater than 50% direct discussion and review with mom and care coordination with team on above issues.) This document has been electronically signed by ALLISON ALARCON MD on 11/28/2004 08:52:37. - ALLISON ALARCON MD /lr Voice ID: [id number] Doc ID: [id number] Continues to be appropriate for acute inpatient rehab. 2. We will trial an increase of amantadine. 3. Continue present water intake. 4. Will follow up with Dr. Edwards regarding TSH results. (Total time 45 minutes, greater than 50% direct discussion and review with mom and care coordination with team on aboveissues.) - ALLISON ALARCON MD /lr Voice ID: [id number] Doc ID: [id number] documented in this encounter Plan of Treatment Upcoming Encounters Date Type Department Care Team (Late st Contact Info) Description 09/09/2024 10:[address] [facility] Endocrinology - [facility] [address] [place] [address] Day Littlejohn MD PhD [address] [facility] [address] [place] [address] documented as of this encounter Visit Diagnoses Not on filedocumented in this encounter Care Teams Director Public Service Relationship Specialty Start Date End Date Yan Demarco MD [address] [place] [phone] PCP - General 08/22/09 02/20/10 Corin Skinner MD [address] [place] [phone] PCP - General 10/24/08 08/21/09 Akil Serrano MD 74 [facility] [address] [place], [place] [address] PCP - General 02/21/10 04/16/11 documented as of this encounter
--- OUTSIDE RECORDS SUMMARY | 2024-03-05 15:52 | XMS_ITS | Encounter Summary ---
Author Organization [facility] Address [address] [place] [address] Care Team Providers Care Typewriter Mechanic Name Role Phone Unavailable Primary Care Provider Unavailabl e Encounter Details Date Type Department Care Team (Late st Contact Info) Description 01/01/2005 4:51 EDT - 01/15/2005 11:59 EDT Hospital Encounter [facility] Pediatric Unit [address] [place] [address] Jodi Parr MD [address] [facility], [address] [phone] Slava Pineda MD Discharge Disposition: [facility] Social History Tobacco Use Types Packs/Day Years Used Date Smoking Tobacco: Never Assessed Sex and Gender Information Value Date Recorded Sex Assigned at Not on file Gender Identity Not on file Sexual Orientation Not on file documented as of this encounter Discharge Summaries * Isabel Tilley MD - 01/15/2005 0000 EDT DISCHARGE SUMMARY Admission Date: 01/01/2005 Discharge Date: 01/15/2005 ADMISSION DIAGNOSIS: Abdominal pain. DISCHARGE DIAGNOSIS: Abdominal pain secondary to hypertriglyceridemia, fatty liver, and gastritis/gastroesophageal reflux disease. 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 He has secondary panhypopituitarism and central diabetes insipidus as well as significant neurologic deficits, including left-sided weakness. Miguel Angel had been at [facility] since his discharge from [facility] on November 20, 2004. He had been sent to the [facility] because of increased irritability and agitation, decreased PO intake, and apparentabdominal discomfort. The patient did not have fevers, rash or vomiting. He did have decreased PO intake. There was adequate urinary output. He just completed a three-week course of cephalexin fora sinus infection per ENT. HOSPITAL COURSE: GASTROINTESTINAL: As mentioned, the patient was admitted with apparent abdominal pain that improvedduring hospitalization. Abdominal pain was thought to be secondary to hypertriglyceridemia, fatty liver (as seen on CT) and gastritis/GERD. Once triglycerides were less than 500 and the patient was re ceiving omeprazole, the patient stopped complaining of abdominal pain. 1. Hypertriglyceridemia: Initially, triglycerides were 2053 at time of admission, and they were down to 427 on January 14, 2005. 2. Gastritis/GERD: Symptoms improved on omeprazole 20 mg PO/per G-tube given twice daily. 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 Adult endocrinology (pediatric endocrinology out of town) was involved for comanagement of this patient during his hospitaliation. 1. Central diabetes insipidus: The patient's target sodium was 130-150, however he ranged from 125 (on January 02, 2005) to 153 (on January 04, 2005). Sodium levels fell within this range by January 05, 2005, withthe exception of 151 on January 09, 2005, and 129 on January 14, 2005. Throughout most of the hospitalization, his target free fluids were 2.0 to 2.2 liters, with slight adjustments occasionally made in response to higher or low sodium values. At time of discharge, the patient was fluid restricted to 2 liters perday. Initially, DDAVP was held because of hyponatremia but it was given for the majority of the hospitalization. At time of discharge, the patient's sodium was 132. 2. Adrenal insufficiency: Miguel Angel's hydrocortisone was increased to 100 mg q8 at the time of admission for stress dosing. He was then returned to a baseline dose of 10 mg, 5 mg, and 5 mg each day for the majority of the hospitalization. The exception was when doses were tripled in response to a febrileepisode. 3. Hypothyroidism: The patient was on baseline doses of levothyroxine 0.15 mg daily and were given to the patient throughout hospitalization. INFECTIOUS DISEASE: The patient was febrile for approximately 1.5 days of hospitalization. Urinalysis and chest x-ray were negative for infection. Clostridium difficile stool culture was also negative. Blood culture showed no growth on day of discharge. Fevers improved on their own, without a known etiology and without specific treatment. On day of discharge, the patient was afebrile. MUSCULOSKELETAL: Toward the end of hospitalization, the patient complained of pain in arms and legs, and it seemed that these were tender to palpation when he was complaining of pain. There was no erythema nor any abnormalities at these areas that were visualized. It was difficult to assess this pain but it is possible that pain was caused by muscle cramping. Since patient was already receiving Ativan PRN, this was continued during these episodes of possible muscle cramping. NEUROLOGIC: Neurosurgery saw patient during hospitalization and recommended MRI of the head to evaluate him since he was three months postop from his Neurosurgery. MRI on January 10, 2005, revealed possible residual tumor in the anterior aspect. Neurosurgery is aware of this and would like to see patient in clinic in one month. ENT: The patient was seen by ENT during this hospitalization. They scoped his sinuses since he was status post three weeks of antibiotic treatment for sinusitis. They found no evidence of continued infection. The patient was also found to have small foreign bodies in his right ear canal. These wereobserved on January 03, 2005, and removed during this hospitalization by ENT at a later date. DISPOSITION: [facility]. CONDITION AT DISCHARGE: Fair. DISCHARGE INSTRUCTIONS: Per patient family and [facility] facility: Discharge medications: Omeprazole 40 mg PO per G-tube twice daily Gabapentin 100 mg per G-tube twice daily DDAVP 0.15 mg per G-tube at 8:00 a.m., at midnight, and 0.1 mg per G-tube at 1600 Hydrocortisone 10 mg, 5 mg, 5 mg PO q8 hours Levothyroxine 150 mcg per G-tube daily Methylphenidate 5 mg per G-tube daily. [facility] to restrict free fluids to no more than 2 liters on day of discharge. They were also instructed to check serum sodium levels daily and call Dr. Edwards at [facility] if there were any questions regarding his sodium. Free fluid targets would be based on daily sodium levels. The patient has already been followed by Dr. Edwards and he is involvedin his care. [facility] can [facility]. Edwards when they have any questions regarding endocrine issues for Miguel Angel. Signed by Jodi Parr MD 02/20/2005 07:31 Isabel Tilley, Aleksandra Tilley, Dottie Parr MD= - Isabel Tilley MD P - Job ID: [id number] Document ID: [id number] cc: MD Thad Jones MD Thomas Moseley, MD Christa M Zehle, MD Paul James Zimakas, MD Thomas Moseley, MD Christa M Zehle, MD Paul James Zimakas, MD documented in this encounter Discharge Disposition Disposition Code Departure Means Destination [facility] documented in this encounter Plan of Treatment Upcoming Encounters Date Type Department Care Team (Late st Contact Info) Description 09/09/2024 10:20 EST Office Visit [facility] Endocrinology - [address] [address] Day Littlejohn MD PhD [address] [place] [address] [address] [place] [address] documented as of this encounter Procedures Procedure Name Priority Date/Time Associated Diagnosis Comments MR HEAD W/WO CONTRAST 01/10/2005 14:17 EDT PORTABLE CHEST 1 VIEW 01/09/2005 9:51 EDT documented in this encounter Results * MR HEAD W/WO CONTRAST (01/10/2005 14:17 EDT) Anatomical Region Laterality Modality Other 01/10/2005 14:1 7 EDT Narrative 02/09/2009 3:16 EDT PANHYPOPPITUITARISM MR SCAN OF THE BRAIN We have an MR scan of the brain done with three planes postgadolinium.T1 scans as well as axial FLAIR, T2, and diffusion gradient images. ??The only comparson MR we have was done preoperatively for stereotaxis. ??Comparison is therefore made to prior CT which showed aneurysm clip in place as well as areas of postsurgical and postinfarct changes. FINDINGS: The ventricles are similar in size to the prior CT with no gross changes of hydrocephalus. 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 ??There is some postsurgical presumed gliosis in the right frontal lobe, which is noted on the prior CT as well. ??There was previously noted to be a very large bilobed enhancing lesion in the suprasellar region and extending anteriorly on the right. ??To a large extent, this has been removed although there still appears to be some residual tumor in the more anterior aspect to the right of midline. ??This to a certain extent is intrinsically T1 bright, although there does appear to be some enhancement in this region. ??It is certainly conceivable what we are seeing is some postoperative change with some proteinaceous fluid in the cystic cavity, but I am strongly suspect that this is indeed residual tumor. ??No other lesions. IMPRESSION: Postsurgical changes in the right frontal region with postclipping artifact and areas of bithalamic tissue loss are again noted, similar to the recent CT. ??While much of the patient's tumor appears to have been removed, there is some enhancement seen more anteriorly off to the right, which was an area of previously-noted tumor and I suspect there is some residual tumor in this region. ??There is some dural thickening anteriorly which is probably postsurgical in nature. ??No other new findings since previous examinations. D: ??01/10/05 T: ??01/15/05 /[facility] Procedure Note Jose Armando Barker MD - 02/09/2009 PANHYPOPPITUITARISM MR SCAN OF THE BRAIN We have an MR scan of the brain done with three planes postgadolinium.T1 scans as well as axial FLAIR, T2, and diffusion gradient images. The only comparson MR we have was done preoperatively for stereotaxis. Comparison is therefore made to prior CT which showed aneurysm clip in place as well as areas of postsurgical and postinfarct changes. FINDINGS: The ventricles are similar in size to the prior CT with no gross changes of hydrocephalus. Arachnoid cyst versus asymmetric cisterna magna is again noted in the posterior fossa. There is some postsurgical presumed gliosis in the right frontal lobe, which is noted on the prior CT as well. There was previously noted to be a very large bilobed enhancing lesion in the suprasellar region and extending anteriorly on the right. To a large extent, this has been removed although there still appears to be some residual tumor in the more anterior aspect to the right of midline. This to a certain extent is intrinsically T1 bright, although there does appear to be some enhancement in this region. It is certainly conceivable what we are seeing is some postoperative change with some proteinaceous fluid in the cystic cavity, but I am strongly suspect that this is indeed residual tumor. No other lesions. IMPRESSION: Postsurgical changes in the right frontal region with postclipping artifact and areas of bithalamic tissue loss are again noted, similar to the recent CT. While much of the patient's tumor appears to have been removed, there is some enhancement seen more anteriorly off to the right, which was an area of previously-noted tumor and I suspect there is some residual tumor in this region. There is some dural thickening anteriorly which is probably postsurgical in nature. No other new findings since previous examinations. /[facility] Wes Borja MD [facility] MRI ORDERABLES * PORTABLE CHEST 1 VIEW (01/09/2005 9:51 EDT) Anatomical Region Laterality Modality Other 01/09/2005 9:51 EDT Narrative 02/09/2009 4:49 EDT S/P FEVER R/OPNEUMONIA PORTABLE AP CHEST 01/09/05 FINDINGS: Thirty degree upright portable view of the chest shows low lung volumes. The cardiomediastinal silhouette is within normal limits. Minimal hazy densities are seen in the right and left lung, which are otherwise, unremarkable. The bones are normal and no focal abnormality is seen. D 01/09/05 T 01/12/05 /vicky Procedure Note Carmel Jerez MD - 02/09/2009 S/P FEVER R/OPNEUMONIA PORTABLE AP CHEST 01/09/05 FINDINGS: Thirty degree upright portable view of the chest shows low lung volumes. The cardiomediastinal silhouette is within normal limits. Minimal hazy densities are seen in the right and left lung, which are otherwise, unremarkable. The bones are normal and no focal abnormality is seen. D 01/09/05 T 01/12/05 /vicky Isabel Tilley MD IMG DIAGNOSTIC IMAG ING ORDERABLES documented in this encounter Visit Diagnoses Not on filedocumented in this encounter
--- OUTSIDE RECORDS SUMMARY | 2024-03-05 15:52 | XMS_ITS | Encounter Summary ---
Author Organization [facility] Address [address] [place] [address] Care Team Providers Care Depalletizer Operator Name Role Phone Yan Demarco MD Primary Care Provider [phone] Corin Skinnre MD Primary Care Provider [phone] Akil Serrano MD Primary Care Provider [phone] Encounter Details Date Type Department Care Team (Late st Contact Info) Description 12/04/2004 Before PRISM Converted Visit (Maple) [facility] - Maple conversion [address] [place] [address] Allison Alarcon MD [address] [place] [id number] Social History Tobacco Use Types Packs/Day Years Used Date Smoking Tobacco: Never Assessed Sex and Gender Information Value Date Recorded Sex Assigned at Not on file Gender Identity Not on file Sexual Orientation Not on file documented as of this encounter Progress Notes * Allison Alarcon MD - 02/14/2011 1628 EDT INPATIENT REHABILITATION PROGRESS NOTE F002 DATE OF SERVICE: 12/04/2004 DIAGNOSIS: Status post cerebrovascular accident/status post craniopharyngiomaresection. SUBJECTIVE: Mom and team overall are reporting he has had some good response and tolerance of therapies this morning. He had a relatively good night. OBJECTIVE: Vital signs remain stable. Patient remains either sleeping or awake with wails. He continues to reach for his ear, although OT has observed when he is offered things to brush his teeth with and wash his face that he is able to manage that today. Improved responses to commands have been noted. Heart: S1, S2, regular. Lungs are clear. Abdomen is benign. Lower extremities without any edema. Left-sided hemiplegia, stable. TEAM ROUNDS: The patient's present functional status and discharge goals and barriers fully reviewed. Final discharge disposition still being worked on by social work, Medicaid waiver program, and mom. ASSESSMENT: Patient status post bilateral CVAs. Mom is receptive at this point to having ENT complete their consult on this patient. Dr. Alejo to hopefully review things today, if not tomorrow, regarding Dr. Leiva recommendations. The patient still anticipated to be at subacute level on Friday. He is still tolerating relatively limited times of therapies. PLAN: Continue with full program. minutes total time, greater than 50% direct discussion and review of patient's care with mom and care coordination with team). This document has been electronically signed by ALLISON ALARCON MD on 12/05/2004 13:02:17. - ALLISON ALARCON MD /ss Voice ID: [id number] Doc ID: [id number] times of therapies. PLAN: Continue with full program. (Thirty-five minutes total time, greater than 50% direct discussion and review of patient's care with mom and care coordination with team). - ALLISON ALARCON MD /ss Voice ID: [id number] Doc ID: [id number] documented in this encounter Plan of Treatment Upcoming Encounters Date Type Department Care Team (Late st Contact Info) Description 09/09/2024 10:20 EST Office Visit [facility] Endocrinology - [address] [address] Day Littlejohn MD PhD [address] [place] [address] [address] [place] [address] documented as of this encounter Visit Diagnoses Not on filedocumented in this encounter Care Teams Depalletizer Operator Relationship Specialty Start Date End Date Yan Demarco MD [address] [place] [address] PCP - General 08/22/09 02/20/10 Corin Skinner MD [address] [place] [phone] PCP - General 10/24/08 08/21/09 Akil Serrano MD [address] [id number] PCP - General 02/21/10 04/16/11 documented as of this encounter
--- OUTSIDE RECORDS SUMMARY | 2024-03-05 15:52 | XMS_ITS | Encounter Summary ---
Author Organization [facility] Address [address] [place] [address] Care Team Providers Care Lead Manufacturing Engineer Name Role Phone Yan Demarco MD Primary Care Provider Corin Skinner MD Primary Care Provider [phone] Encounter Details Date Type Department Care Team (Late st Contact Info) Description 12/31/2004 Office Visit [facility] - Maple conversion [address] [place] [address] Yan Guadarrama MD [address] [facility], Level [address] [place] [address] Social History Tobacco Use Types Packs/Day Years Used Date Smoking Tobacco: Never Assessed Sex and Gender Information Value Date Recorded Sex Assigned at Not on file Gender Identity Not on file Sexual Orientation Not on file documented as of this encounter Progress Notes * Yan Guadarrama MD - 09/06/2009 1019 EST Department - Physician Summary Registration Date/Time: 12/31/2004 22:37 Time Seen: 23:35 ; initial patient contact. Arrived- By ambulance. Historian- patient, EMS personnel and family. Note (Rehab pt). HISTORY OF PRESENT ILLNESS Chief complaint- ABDOMINAL PAIN. This started yesterday and is still present. It was gradual in onset (Pt is s/p brain tumor, craniectomy, bilat CVA and pituitary insult - Non-communicative, has beenmore agitated lately, pulling at his diapers and abdomen - sent to Ed for eval of possible abd process). It is described as pain and it is described as located in the periumbilical area. Modifying factors- Not worsened by anything. Not relieved by anything. Severity described as severe at its maximum. When seen in the E.D., severity described as severe. He has had loss of appetite. No nausea, vomiting or diarrhea. Patient has not had similar symptoms previously. The patient was seen recently by a health care provider. REVIEW OF SYSTEMS No constipation, black stools, hematemesis, difficulty with urination or bloody stools. No fever, difficulty breathing, skin rash or chills. PAST HISTORY See nurses notes. Medications: See nurses notes. Allergies: See nurses notes. SOCIAL HISTORY Nonsmoker. ADDITIONAL NOTES The nursing notes have been reviewed. PHYSICAL EXAM Appearance: Alert. Patient in moderate distress. Distress appears due to pain. Vital Signs: The vital signs have been reviewed- blood pressure normal; tachycardic; temperature normal. Eyes: Pupils equal, round and reactive to light. ENT: Pharynx normal. Neck: Normal inspection. Neck supple. CVS: Tachycardia. Heart sounds normal. Pulses normal. Respiratory: No respiratory distress. Breath sounds normal. Chest nontender. Abdomen: Abdominal distention. Mild tenderness in the epigastric area. No guarding or rebound tenderness. Back: Normal inspection. : Normal genitalia. Testes descended. No tenderness present or scrotal swelling. Skin: Normal skin color. Skin warm. No rash. Extremities: Extremities exhibit normal ROM. No pedal edema. Neuro: Oriented X 3. No motor deficit. PROGRESS AND PROCEDURES E.D. Course: Labs/CT/Pain mgt Case discussed and E.D. care transferred (to Dr. Pineda at changeof shift). (Electronically signed by Yan Guadarrama MD 01/02/2005 17:20) Arrived- By ambulance. Historian- EMS personnel and mother. Evaluation limited by Pt is non communicative, he is s/p excision of craniopharyngioma and CVAs) HISTORY OF PRESENT ILLNESS Chief complaint- ABDOMINAL PAIN. This started yesterday and is still present (Pt has been pulling at diapers and abdomen.). It is described as pain and it is described as located in the periumbilical area. No radiation. Modifying factors- Not worsened by anything. Not relieved by anything. Severity described as severe at its maximum. When seen in the E.D., severity describedas severe. No nausea, loss of appetite, vomiting or diarrhea. Patient has not had similar symptoms previously. The patient was seen recently and hospitalized. (at rehab). REVIEW OF SYSTEMS No constipation, black stools, hematemesis, difficulty with urination or pain with urination. No urinary frequency, bloody stools, fever, headache or sore throat. No blurred vision, chest pain, difficulty breathing, cough or joint pain. No skin rash, chills or back pain. PAST HISTORY See nurses notes. Neurological disease. Other disease. No history of heart disease, lung disease, renal disease, hypertension or hyperlipidemia. No history of GI disease ordiabetes mellitus. Craniotomy. No prior abdominal surgery. Medications: See nurses notes. Allergies: See nurses notes. SOCIAL HISTORY Nonsmoker. No alcohol. ADDITIONAL NOTES The nursing notes have been reviewed with agreement regarding the chief complaint, HPI, PMH and patient medications and allergies. PHYSICAL EXAM Appearance: Alert. No acute distress. Eyes: Pupils equal, round and reactive to light. Eyes normal inspection. ENT: Ears normal. Nose normal. Pharynx normal. Neck: Normal inspection. Neck supple. CVS: Normal heart rate and rhythm. Heart sounds normal. Pulses normal. Respiratory: No respiratory distress. Breath sounds normal. Chestnontender. Abdomen: Tenderness diffusely. Back: Normal inspection. Skin: Normal skin color. Skin warm. No rash. Extremities: Extremities exhibit normal ROM. No pedal edema. Neuro: No motor deficit. No sensory deficit. Reflexes normal. LABS, X-RAYS, AND EKG Abdominal CT: Normal aorta. Normal kidneys. Bladder normal. Appendix normal. No mass. No free fluid. fatty liver and many enhancing nodes in mesentary Abdominal CT performed with oral contrast. The abdominal CT was interpreted by the radiologist and contemporaneously by me and discussed with the radiologist. CBC: WBC 6.3 Segs 53 Lymphs 34 Monos 10 Hgb 11 HCT 31 Platelets 337 Chemistries: Na- 132. K- 5.0. Cl- 96. HCO3-18. Glucose - 78 BUN- 18. Cr- 0.5. TP normal. Albumin normal. Total bilirubin normal. AST 76 ALT 113 Alkaline phosphatase normal. Lipase 51 PROGRESS AND PROCEDURES E.D. Course: 00:26. Assumed care from Dr. Guadarrama with labs and CT pending in pt who is non verbal and seemingly has abdominal pain. 02:31. CT still not done 05:01. Mother catagorically will not allow us to do I/O cath- states he holds it for a long time and when cathed in past, she thinks he got a UTI. She understands that child could now have a UTI and we cannot Dx it without urine and therefore cannot treat (no WBC, no fever, etc). Ativan 1mg IVP. Morphine 4 mg IVP. Discussed case with patient's personal physician, Dr. Parr 04:47 Reviewed test results. Agreed upon treatment plan and need for patient follow-up. Physician will see patient in hospital. Call placedto patient's personal physician Keshav call placed 04:41 Mother counseled regarding the patient's test results and diagnosis. Additional history sought from mother. Old medical records reviewed. Disposition: Admitted. Condition: good. CLINICAL IMPRESSION Abdominal pain of undetermined cause. (Electronically signed by Slava Pineda M.D. 01/01/2005 23:08) Addenda for MIGUEL ANGEL MASON VisitID: [id number] Date: 12/31/2004 12/31/2004 22:44 transferred from rehab 2 - unknown who took referral call - abdominal pain hx of tbi - bilat stroke signed by Alona Palmer - 12/31/2004 22:44) Department - Nursing Summary Registration Date/Time: 12/31/2004 22:37 TRIAGE Initial Assessment Triage time 23:35 PM Acuity: LEVEL 3. BP: 119 / 78 HR: 102 RR: 22 Temp: 36.9 tympanic --2339 Alona Figueroa R.N. Medications (Cefelexin, Desmopressin, Docusate, Gabapentin, Hydrocortosone, Levothyroxin, Methylphenidate, MOM). --2339 Alona Craolina, R.N. Allergies No known drug allergies. --2339 Alona Figueroa R.N. History Chief Complaint: (Child increasingly restless today and screaming intermittantly. G-tube not fuctioning as normal and abdomen distended and firm.). Unable to quantify level of pain. Treatment AIRFIELD MANAGER: (Pain meds at rehab). PAST HX: No infectious disease exposure. (Brain tumor with surgery October 2004 with deficit.). SOCIAL HX: Not exposed to second-hand smoke at home. Functional assessment. Activities of daily living assessed- patient requires total care. Communication barrier present. Mobility impairment present - patient uses wheelchair. No report of abuse. Caregiver- mother. Arrived by EMS and accompanied by family. Historian: patient. --2339 Alona Figueroa R.N. NURSING PROGRESS NOTES Progress MORPHINE 4mg diluted with IV fluid slow IVP over 2 minutes. IV patency established. IV site checked: no pain, redness, or swelling. IV flushed thoroughly pre- and post-medication administration. Sedative drug warning given to patient. --0025 Milady Taveras R.N. (Mother refuses urine cath You ain't puttin one of those in his wenie). --0026 Milady Taveras R.N. (Mother will attempt to obtain clean catch). --0026 Milady Taveras R.N. (Gastroview started via peg tube 30cc in 500cc). --0042 Milady Taveras R.N. RR: 16 regular (unlabored). The patient is sleeping. --0106 Raleigh Lazo R.N. Patient transported to [facility] with tech. --0322 Milady Taveras R.N. Patient transported to [place] by stretcher with nurse and tech. --0348 Milady Taveras R.N. (Pt agitated at CT. Pt moving and screaming unable to verbally calm pt. Mother at bedside). --0349 Milady Taveras R.N. LORAZEPAM 1mg diluted with NS IVP over 2 minutes. IV patency established. IV site checked: no pain,redness, or swelling. IV flushed thoroughly pre- and post- medication administration. Sedative drug warning given to thefamily. --0349 Milady Taveras R.N. Patient returned from CT by stretcher with nurse. --040 Milady Taveras R.N. BP: 121 / 62 HR: 76 RR: 16 Temp: 36.2 tympanic --040 Milady Taveras R.N. Pedi urine collection bag placed on patient. --040 Milady Taveras R.N. The patient is sleeping. Patient waiting for admit bed. --045 Milady Taveras R.N. IV / I&O Flowsheet IVsite: location left hand. Started: 20g angiocath; aseptic technique used; good blood return noted; one attempt. Saline lock in place. IV line accessed- flushed with saline and blood drawn. --002 Raleigh Lazo R.N. IV start unsuccessful: two attempts. --23 Milady Taveras R.N. DISPOSITION / DISCHARGE Transported via stretcher by [facility]. Report was given (to Deb Garcia). --811 Tenisha Heredia, Nurse Associate. Clara Guzman R.N., R.N. Tenisha Heredia, Nurse Associate. Locked/Released at 01/02/2005 9:37 by Rachel Reynolds R.N. documented in this encounter Plan of Treatment Upcoming Encounters Date Type Department Care Team (Late st Contact Info) Description 09/09/2024 10:20 EST Office Visit [facility] Endocrinology - [address] [address] Day Littlejohn MD PhD [address] [place] [address] [address] [place] [address] documented as of this encounter Visit Diagnoses Not on filedocumented in this encounter Care Teams Lead Manufacturing Engineer Relationship Specialty Start Date End Date Yan Demarco MD [address] [place] [address] PCP - General 08/22/09 02/20/10 Corin Skinner MD [address] [place] [phone] PCP - General 10/24/08 08/21/09 documented as of this encounter
--- OUTSIDE RECORDS SUMMARY | 2024-03-05 15:52 | XMS_ITS | Encounter Summary ---
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 Name Role Phone Unavailable Primary Care Provider Unavailabl e Encounter Details Date Type Department Care Team (Latest Contact Info) Description 11/20/2004 12:11 EDT - 12/31/2004 11:59 EDT Hospital Encounter [facility] Rehabilitation Therapy Unit Level 2 [address] [place] [address] Allison Alarcon MD [address] [place] [id number] [facility] Social History Tobacco Use Types Packs/Day Years Used Date Smoking Tobacco: Never Assessed Sex and Gender Information Value Date Recorded Sex Assigned at Not on file Gender Identity Not on file Sexual Orientation Not on file documented as of this encounter Discharge Summaries * Allison Alarcon MD - 12/31/2004 0000 EDT DISCHARGE SUMMARY Admission Date: 11/20/2004 Discharge Date: 12/31/2004 DIAGNOSIS: Status post cerebrovascular accidents, status post craniopharyngioma resection. HOSPITAL COURSE PRIOR TO ADMISSION: Miguel Angel Burgos is a 14-year-old boy who hadhad a slow onset of visual deficits and a history of behavioral problems prior. Imaging identified a suprasellar tumor. OnOctober 05, 2004, he was admitted and underwent a transsphenoidal resection. 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 Atthat time, the pituitary stalk was transected. Postoperatively, his panhypopituitary issues had to be monitored closely and were followed by Dr. Edwards. Postoperatively, he had been lethargic and very slow to wake up. He had a left hemiparesis. 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 He was also treated for a right ear infection. REHABILITATION COURSE: The patient was admitted for intensive inpatient rehab program. Initially, he remained extremely lethargic with frequent wailing behaviors and rubbing on his right ear. There was no sign of right ear infection. Providing other oral stimulation opportunities for him with chew toys and teeth brushing seemed to decrease the behavior somewhat. It was also felt he might have been having some neuropathic pain and was started on Neurontin with some partial change in his behaviors. He was tolerating therapies only in the morning initially due to fatigue. He was kept on tube feeds. BUN and sodium levels were monitored regularly. The patient did start to progress and respond more to commands and participate in therapies. He didbest with low-stimulation quiet environments and consistent staff. He became increasingly able to participate in his own orofacial care and knew staff and therapists. Communication device was offering two options, were well tolerated. He started to develop someincreasing synergy and synergistic movements in his left upper extremity and his left lower extremity. He was seen in consultation by Dr. Alejo in the ENT service. Goal was to identify if there wereany potential sites of pain generation that could betreated that would decrease his self-stimulatory behavior and wailing. Sinus endoscopy showed purulent drainage from his sphenoid sinus. This was cultured and the patient was placed on Keflex based on sensitivities for three weeks as per Dr. Alejo's directions. His right eardrum was noted to be somewhat retracted but had no fluid behind it and no inflammation. Dr. Edwards and Dr. Castañeda followed closely, monitoring his panhypopituitary symptoms. Fluid amountsneeded to be carefully adjusted in terms offlushes and things needed for medications on top of his tube feeds. Formal consultation was done on December 24, 2004, by Dr. Edwards and that report is in the chart. On December 27, the patient had a phase of tachycardia, slightly more restlessness, and agitation. The O2 stats were normal. The patient was evaluated by Dr. Ermelinda Eagle. The patient had sinus rhythm on EKG. Doppler ultrasound was checked in leg and was negative for clot. The patient was still emptying bowels and voiding and incontinent in Attends. No identified pathology was noted. Blood work at at time was being reported by lab as lipemic. Triglyceride levels drawn on the morning of December 28 showed a severely elevated triglyceride level of over 2000. Over December 29, the patient was transitioning to full trays and decreasing tube feeding. He had good appetite. He was not moving bowels and appearing slightly distended but bowel sounds were normal and the abdomen was soft. On December 31 a.m., fasting triglyceride was repeated and continued to be [id number]. The patient was seen further in evaluation by Dr. Ermelinda Eagle. The patient developed increasing agitation, restlessness, and high-pitched wailing. He seemed to be expressing frustration. He was attempting to move hisdiaper constantly. He had alsobeen still able to participate at times in therapies. He was getting up to be toileted with moderate success. Through the day, assessing for bladder ultrasound was a bitdifficult because he became increasingly tense through his abdomen with his wailing.Also, excellentbowel program results were obtained, while the patient continued to appear increasingly uncomfortable. The patient was sent up to the emergency room for full evaluation. Clarification of this, there was a source generating pain in this patient. The patient was evaluated in the ER and held on the pediatric service subsequently for further evaluation. DISCHARGE PLAN: Transfer to the emergency room for acute evaluation. The patient is to be referred back to the rehab service when medical issues are clarified and stabilized. DISCHARGE MEDICATIONS: 1. Tylenol with codeine p.r.n. 2. Keflex 500 mg per PICC q.i.d. to complete course. 3. Desmopressin 0.15 mg q.8 h. 4. Colace syrup 100 mg per G tube q.a.m. 5. Gabapentin 100 mg per PEG b.i.d. 6. Hydrocortisone 10 mg p.o. q.a.m., 5 mg q.noon, and 5 mg q.p.m. 7. Synthroid 150 mcg p.o. q.a.m. 8. Ritalin 10 mg p.o. q.a.m., 5 mg p.o. q.noon. 9. Milk of magnesia p.r.n. 10. Percocet 1 tablet p.o. q.4 h. p.r.n. Signed by Allison Alarcon MD 01/03/2005 13:29 ACarol Sky Flowers MD Allison Alarcon MD - Allison Alarcon MD A - LR Job ID: [id number] Document ID: [id number] cc: MD Kris Mccauley MD Christa M Zehle, MD Paul James Zimakas, MD [address] [id number] \* MERGEFORMAT Acosta Enriquez MD A - ck Job ID: [id number] Document ID: [id number] cc: MD Acosta Oakley MD Carol L Thayer, [place] [id number] \* MERGEFORMAT Krissy Chamberlain MD D: - Krissy Chamberlain MD P - mo Job ID: Document ID: [id number] cc: Marvin Hernandez MD [facility] [place], [id number] documented in this encounter Discharge Disposition Disposition Code Departure Means Destination [facility] documented in this encounter Progress Notes * Allison Alarcon MD - 12/31/2004 0000 EDT INPATIENT PROGRESS NOTE PT LOC: F002 Service Date: 12/31/2004 DIAGNOSIS: Bilateral cerebrovascular accidents with panhypopituitarism. SUBJECTIVE: Patient much more restless and agitated through the day today. We evaluated several times. He started some toileting successfully and also using Depends but is persistently attempting to pull his Depends off. At times, he indicates to therapist that he is having pain but the location has shifted inhim identifying if the painis in the hip or back or belly. OBJECTIVE: Vital signs are stable. Affect remains distressed and agitated. Increased wailing with intermittenttimes of sleep. Moving restless around in bed but grabbing more through his Depends. Grabbing peoplehands, pulling them to his mouth. Using his oral stim tools less. Reported is eating fully. Heart S1/S2 regular. Lungs are clear. Abdomen active bowel sounds, slightly distended. Difficult to assess his pain with palpation. Labs: Triglycerides 2051, sodium 138, BUN 15. ASSESSMENT: Patient with change in behavior through the day. Was not able to focus or participate in therapies.Unclear source of change, whether there is a focal cause or whether it is just increased agitation overall. No other significant med changes made. Sodium and BUN are doing very well. Etiology of the marked hypertriglyceridemia unclear. Dr. Eagle looking into this and attempting to discuss with endocrine. Feels reasonable given that he is eating well to stop his tube feeding. Discussed with dietary how to calculate his total free water load between his different meals and food products. He had a calorie count but it was still when he was getting tube feeds. PLAN: 1. Recheck UA C and S. 2. Check stool for C. diff. 3. Attempt bowel program this afternoon to assess for changes in patients symptoms. (Time spent reviewing and discussion of symptoms and concerns with mom and coordinating care with team members greater than 30 minutes.) ADDENDUM: Contacted by nursing in the early evening. Miguel Angel had excellent results from his bowel program but did not alter or change his behaviors. They did attempt to check a bladder ultrasound but the patientcontinued to hold his stomach very tight and it was difficult tosee if he was having residual. He continues to focus on grabbing and pulling on his Depends and peritoneal area. Patient was given 1 mgof Ativan and decision was made to transfer to the ER for further evaluation of his abdominal symptoms tonight. Signed by Allison Alarcon MD 01/02/2005 14:01 Sky Hollingsworth MD Allison Alarcon MD - Allison Alarcon MD A - mt Job ID: [id number] Document ID: [id number] cc: 29 [id number] * Allison Alarcon MD - 12/30/2004 0000 EDT INPATIENT PROGRESS NOTE PT LOC: F002 Service Date: 12/30/2004 DIAGNOSIS: Bilateral CVAs. SUBJECTIVE: Miguel Angel quieter through this morning. Nursing reporting he is doing well with his meals. He is responding very well to the nursing staff this morning. He is doing most of his morning regimen up at the sinkwith some verbal cuing. He seems to be with reach finding objects on the counter. Heis not noting any pain but nursing has observed he continues to rub around his right eye. OBJECTIVE: Vital signs are stable. Affect is more calm this morning. Did meet Miguel Angel in the quinn. Hedid not become agitated or resistant. He did not give me any nods yes or no in that setting. I+O sheets reviewed. Tube feedings being decreased today. ASSESSMENT: Patient with CVAs and panhypopituitarism. Making steady gains in terms of how much he is interacting and what activities he is attempting. Continues to have intermittent episodes of wailing and crying outAt times, he responds to outside stimuli. Oral intake has been excellent but final calorie counts are pending. He is still voiding regularly and nursing is doing regular voiding program with him. PLAN: 1. Labs as ordered for tomorrow. 2. Continue with present meals and fluids. Signed by Allison Alarcon MD 12/30/2004 21:46 ACarol Sky Flowers MD Allison Alarcon MD - Allison Alarcon MD P - lr Job ID: [id number] Document ID: [id number] cc: * Allison Alarcon MD - 12/29/2004 0000 EDT INPATIENT PROGRESS NOTE PT LOC: F002 Service Date: 12/29/2004 DIAGNOSIS: Status post CVAs. SUBJECTIVE: Mom is concerned that Miguel Angel is getting too much tube feeding on top of his oral eating.He has been doing very well with his trays thatcome up. She is concerned that he has not had bowel movements. Miguel Angel at the present time is not indicating any area of pain. He is having more verbal responses. OBJECTIVE: Vital signs are stable, affect is calm at the present time. His still having intermittent wailing. Abdomen is full, soft, nontender, with active bowel sounds. PEG site in place. Lungs wereclear. The patient is keeping eyes closed for the most part. Good isolated function right upper andlower extremities. Left lower extremity still with some synergistic flexion and extension from timeto time, no peripheral edema noted. LABORATORY DATA: Hematocrit 30.9. Urinalysis negative. ASSESSMENT: The patient has shown very good p.o. intake. Will start to decrease tube feedings and try and work on fluid requirements as per Dr. Edwards note. He had a very high elevated triglyceride level, which we will repeat. PLAN: 1. Labs on Friday CBC, BUN, sodium, and triglyceride level. 2. Decrease tube feedings two times in the evening, otherwise just as per trays that are coming up 3. Fluids per day to be 2-2.5 L Signed by Allison Alarcon MD 12/30/2004 00:05 Sky Hollingsworth MD Allison Alarcon MD - Allison Alarcon MD P - re Job ID: [id number] Document ID: [id number] cc: * Wicho Carlton MD - 12/28/2004 0000 EDT INPATIENT PROGRESS NOTE PT LOC: F002 Service Date: 12/28/2004 Miguel Angel is more agitated this morning. Attempts at putting in a PICC line were unsuccessful given theagitation. I subsequently discontinued the PICC line as he did tolerate a peripheral stick for lab draw as well. Vital signs stable. Afebrile. Heart regular. Lungs clear. Abdomen soft, nontender. Extremity examination is unchanged. Calves soft. Neurologic without change. IMPRESSION: Stroke: Continue present therapy program. Continue present medications.Etiology of the agitation issomewhat uncertain at this point. Laboratory studies show a stable sodium. Liver functions also improved. As discussed with Dr. Georgia Escobar, apparently there had been some concern abouta pancreatitis. Continue to monitor clinically. I await Dr. Escobars followup. Signed by Wicho Carlton MD 12/28/2004 15:40 Gregor Carlton MDRdiane Carlton MD Wicho Carlton MD - Wicho Carlton MD P - lr Job ID: [id number] Document ID: [id number] cc: * Allison Alarcon MD - 12/27/2004 0000 EDT INPATIENT PROGRESS NOTE PT LOC: F002 Service Date: 12/27/2004 DIAGNOSIS: Status post cerebrovascular accidents. SUBJECTIVE: Miguel Angel is having more episodes of slightly more restlessness today. His mom is focusing on this and concerned. He is using tools to provide more oral stimulation. Inconsistent in terms of what area heis complaining gives him pain or difficulty. OBJECTIVE: Vital signs are stable. Patient responding more quickly to command request. More verbal output though somewhat dysarthric. Lungs are clear. Heart S1/S2. Abdomen is benign. Right upper and lower extremity continue with normal isolated function. Left upper and lower extremity with partial synergisticmovements intermittently. ASSESSMENT: Patient with left hemiparesis, neurologic blindness, aphasia, status post strokes for tumor removal. Staff still reporting he is doing well in terms of therapy involvement and remains at an acute level. Ultimate discharge disposition still being worked on. PatientPICC line I am able to get drawn from and did not change with TPA treatment yesterday. Discussion with mom regarding blood drawing options. Miguel Angel still will continue to require relatively frequent lab followup. Any treatment intervention is traumatic for him particularly when involving pain or needles. Discussed with IV nurse team. Hector advocating at this point for a new PICC line to go in. We will try and do this when the patient is on rehab using Ativan to calm him. If this cannot be accomplished, then we will try working with peripheral blood draws at least temporarily and determine whether having a PICC placed with the patient in angio suite with conscious sedation should be an option. All labs to be ordered for today will be delayed until tomorrow with PICC line attempt. Reviewed and discussed further with mom. PLAN: 1. PICC line tomorrow with Ativan. 2. Change labs from this morning to tomorrow. 3. Continue with present diet and PEG feedings. Calorie counts initiated. 4. Check UA C and S to see if patients restlessness is related to any urine changes. 5. Continue present Ritalin dose. (Additional extended service involving discussion and counseling with mom and care coordination with team members greater than 30 minutes.) Signed by Allison Alarcon MD 12/29/2004 21:14 Sky Hollingsworth MDCarol A Talley, MD Allison Alarcon MD - Allison Alarcon MD A - mt Job ID: [id number] Document ID: [id number] cc: bkmk * Allison Alarcon MD - 12/26/2004 0000 EDT INPATIENT PROGRESS NOTE PT LOC: F002 Service Date: 12/26/2004 DIAGNOSIS: Status post CVAs, status post craniopharyngioma resection. SUBJECTIVE: Patient seeming more restless this morning. 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 OBJECTIVE: Patient tachycardic this morning, reported from 133 to 145. Taken manually by myself. Approximately 120 to 125 per hour appears regular. Lungs are clear. The patient is participating with requests to turn and for care. He was more agitated related to a wet diaper. Abdomen is benign. Leftlower extremity: He can start to move in some synergistic motions, both extension and flexion. He is starting to show some left upper extremity initiation of motion. Less focus of pushing around his right eye and nasal bridge. ASSESSMENT: Patient more significantly tachycardic this morning. Unclear etiology. He did have morepronounced fluid output last night. Reviewed and discussed his medical situation with Dr. Ermelinda Eagle, hospitalist today. PLAN: 1. We will check BUN, creatinine, and electrolytes today. 2. Start calorie count. 3. Get weight. 4. EKG now. 5. Further medical workup and evaluation by Dr. Eagle. ADDENDUM: Patient reevaluated later in the day. Heart rate had come down to 80. Morning dose of Ritalin had been held and patient has been much more restless and agitated to procedures. Doppler done to a limited degree but no sign of clot seen. Reviewed with mom events of morning. PLAN: 1. Allow afternoon dose of 5 mg of Ritalin. 2. Continue with repeat labs planned tomorrow. 3. Continue full program. (Total time 45 minutes, greater than 50% direct patient care and evaluation, care coordination withteam, and discussion with mom.) Signed by Allison Alarcon MD 12/29/2004 21:14 Sky Hollingsworth MD Allison Alarcon MD - Allison Alarcon MD P - lr Job ID: [id number] Document ID: [id number] cc: * * Allison Alarcon MD - 12/25/2004 0000 EDT INPATIENT PROGRESS NOTE PT LOC: F002 Service Date: 12/25/2004 DIAGNOSIS: Status post bilateral cerebrovascular accidents with left hemiparesis. SUBJECTIVE: Miguel Angel continues to participate in twice a day therapies now since approximately or Friday of last week. He is rubbing and pointing around his right eye and keeping it squinted. Mom has stated he has indicated he is hurting in that area. He has not been observed to do much pulling or digging into his right ear. OBJECTIVE: Vital signs are stable. Patients affect continues to be volatile and agitated at times with some wailing but he is responsive and responding even more quickly to one-step commands and questions from staff.He allowed me to open his right eye manually. No redness or discharge. No tenderness around the lid that could be clearly identified. Some indication that with pressure over the nasal bridge and in the lower region of the orbit that there was some painin response. Using right arm and right legwith good isolated function. Left leg starting to show some synergistic extension motion. Left upper extremity 0/5. PICC site examined. PICC line in place. Lungs are clear bilaterally. Patient cooperative with exam. Heart S1/S2 regular. Abdomen: Active bowel sounds, nontender. PEG tube in place. Team rounds: Patients present functional status, discharge goals and barriers reviewed. Patient is now receiving acute rehab level services. He is working well with speech and starting to work with acommunication device responding to two-choice options. Continues to perform best with familiar therapists. ASSESSMENT: Patient with bilateral CVAs and panhypopituitarism. Reviewed Dr. Edwards note from yesterday reviewing his endocrine status. We will proceed with plan for lab checks on next. Discussed the patientright eye and nasal bridge area pain with the ENT fellow, Dr. Martin. He feels that at this time we should just continue to monitor. No signs of any overt change or infection in that area. Patient is still on Keflex for sphenoid sinusitis. PLAN: 1. Continue present Keflex. 2. Continue PICC and PEG lines. 3. Continue to monitor I and O. 4. Continue with full rehab services and family education and support. (Total time 40 minutes, greater than 50% care coordination with team and discussion of patients program and progress with mom.) Signed by Allison Alarcon MD 12/29/2004 21:14 Sky Hollingsworth MDCarol A Talley, MD Allison Alarcon MD - Allison Alarcon MD A - mt Job ID: [id number] Document ID: [id number] cc: * Allison Alarcon MD - 12/24/2004 0000 EDT INPATIENT PROGRESS NOTE PT LOC: F002 Service Date: 12/24/2004 DIAGNOSIS: Status post CVAs. SUBJECTIVE: [place] team has been noting excellent gains in the last week and a half since I was last on service. He has had increased verbalizations. He has used therapistnames and responding to them. He still is noted to have wailing behavior. He started on some dysphagia diet and has had decreased tube feeds. He has been tolerating twice a day therapies since approximately or Friday per the therapy team. OBJECTIVE: Vital signs are stable. Affect remains somewhat flat but patient is responding more quickly to requests and commands. Is using his right arm and leg actively. Left arm and leg remain 0/5. No visual contact established still. Has different vocalization sounds with wailing. LABS: Calcium 1.27 normal. Electrolytes normal. BUN 14. ASSESSMENT: Patient with CVAs with panhypopituitarism. Is definitely making gains in his rehab program despite his severe impairments. He did review his care issues with from pediatric endocrinology who will come over and formally review his situation now that we are making some changes in his f eedings. PLAN: 1. Continue with full program. 2. Recheck labs on unless otherwise directed by Dr. Edwards. Signed by Allison Alarcon MD 12/26/2004 09:04 Sky Hollingsworth MDCarol A Talley, MD Allison Alarcon MD - Allison Alarcon MD P - chelle Job ID: [id number] Document ID: [id number] cc: le * Wicho Carlton MD - 12/23/2004 0000 EDT INPATIENT PROGRESS NOTE PT LOC: F002 Service Date: 12/23/2004 Miguel Angel is nonfocal for me this morning, but apparently did say hello to appropriate therapists yesterday. Vital signs are stable, afebrile. Heart is regular. Lungs are clear. Abdomen is soft and nontender, bowel sounds present. Calves are soft and nontender. IMPRESSION: 1. Stroke: Continue present therapy program. He is making reasonable gains overall. Continue present nutritional supplementation and monitor for aspiration given the change in diet. Signed by Wicho Carlton MD 12/24/2004 13:36 Nadine Garcia MD Wicho Carlton MD - Wicho Carlton MD P - re Job ID: [id number] Document ID: [id number] cc: 24 * Wicho Carlton MD - 12/22/2004 0000 EDT INPATIENT PROGRESS NOTE PT LOC: F002 Service Date: 12/22/2004 Miguel Angel is nonvocal for me this morning but has been participating well with therapies. Vital signs are stable; afebrile. Heart regular, lungs clear. Abdomen soft, nontender. Bowel sounds are present. Calves soft, nontender. He is utilizing the right extremities to propel wheelchair. IMPRESSION: 1. Stroke: Continue present therapy program. A Dysphagia Level 2 diet with some selective DysphagiaLevel 3 items has beeninitiated. Continue to monitor for evidence of aspiration. Continue present dosing of Ritalin 10 mg in the morning and 5 mg at noon. 2. Panhypopituitarism: Follow up laboratory studies on Friday. Made no changes in overall fluids todate. Signed by Wicho Carlton MD 12/22/2004 12:27 Nadine Garcia MD Wicho Carlton MD - Wicho Carlton MD A - mo Job ID: [id number] Document ID: [id number] cc: 6 * Wicho Carlton MD - 12/21/2004 0000 EDT INPATIENT PROGRESS NOTE PT LOC: F002 Service Date: 12/21/2004 Miguel Angel is starting to vocalize this morning, reportedly saying, ???Good morning,?? to the therapist. He is following some simple commands. Vital signs are stable; afebrile. Heart regular, lungs clear. Abdomen soft, nontender. Bowel sounds are present. Calves soft, nontender. Neurologic without change. IMPRESSION: 1. Continue present therapy program. He is showing slow but progressive gains. He appears to be responding well to and tolerating his increased morning Ritalin dose. 2. Endocrine: Followup laboratory studies will be checked on Friday. Case was discussed with Dr. Castañeda. I also discussed case with [facility] morning and OT aides. Signed by Wicho Carlton MD 12/21/2004 15:23 Nadine Garcia MD Wicho Carlton MD - Wicho Carlton MD A - mo Job ID: [id number] Document ID: [id number] cc: on_xcopy * Raleigh Castañeda MD - 12/21/2004 0000 EDT INPATIENT PROGRESS NOTE PT LOC: F002 Service Date: 12/21/2004 Mr. 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 He has panhypopituitarism. The patient has been somewhat more agitated.He has had a few intelligible verbalresponses today which is new and some responses suggest the possibility of some return of vision. Vital signs are stable. No fever is present. Cardiac rhythm is regular. Lung medellin are clear. Abdomen is soft. JVD is not visible. ASSESSMENT AND PLAN: Continue comprehensive hormonal support for panhypopituitarism. Some improvement in status is noted today. Signed by Raleigh Castañeda MD 12/21/2004 22:08 Pipe Corey MD Raleigh Castañeda MD - Raleigh Castañeda MD P - lr Job ID: [id number] Document ID: [id number] cc: * Wicho Carlton MD - 12/20/2004 0000 EDT INPATIENT PROGRESS NOTE PT LOC: F002 Service Date: 12/20/2004 Miguel Angel had a rough night with several bouts of screaming and restlessness. No precipitating event isidentified. This morning he is relatively calm for me. Vital signs are stable; afebrile. Heart regular, lungs clear. Abdomen soft, nontender. Neurologic without change. Sodium is 141, potassium 4.7, BUN 20, creatinine 0.5. IMPRESSION: 1. with secondary panhypopituitarism: Continuepresent therapy program. I have dictated a letter this morning for rn social work to assist with placement into a subacute program. Given the increased restlessness, we are going to do a trial of increasedRitalin dose first thing in the morning and titrate up as needed. 2. Diabetes insipidus: Sodium is good at 141. His BUN/creatinine ratio is slightly elevated and we will continue to monitor. Signed by Wicho Carlton MD 12/21/2004 15:23 Gregor Carlton, Nadine Carlton MD Wicho Carlton MD - Wicho Carlton MD P - mo Job ID: [id number] Document ID: [id number] cc: [id number] * Raleigh Castañeda MD - 12/20/2004 0000 EDT INPATIENT PROGRESS NOTE PT LOC: F002 Service Date: 12/20/2004 Mr. Burgos is a 14-year-old with stroke syndrome following hypophyseal tumor resection. He has panhypopituitarism. Sodium is stable at 141. Bun is 20, creatinine 0.5. Temperature is 37.5, pulse 95, respirations 18, blood pressure 128/74. Cardiac rhythm is regular. Lung medellin are clear. Abdomen is soft. JVD is not visible. ASSESSMENT AND PLAN: Continue full program activities with ongoing periodic monitoring of electrolytes. Continue DDAVP, hydrocortisone, and Synthroid for hypopituitarism. Signed by Raleigh Castañeda MD 12/21/2004 18:05 Pipe Corey MD Raleigh Castañeda MD - Raleigh Castañeda MD P - mo Job ID: [id number] Document ID: [id number] cc: P, hyd * Wicho Carlton MD - 12/19/2004 1430 EDT INPATIENT PROGRESS NOTE PT LOC: F002 Service Date: 12/19/2004 Miguel Angel is becoming more active at bed level. Vital signs are stable, afebrile. Heart regular, lungs clear. Abdomen is soft and nontender, bowel sounds are present. Neurologic without change. Urinalysis is negative. IMPRESSION: 1. Stroke: Continue present therapy program. We are going to place him back on 1:1 supervision, given increased activity. Continue Ritalin. 2. Panhypopituitarism: Followup laboratory studies for tomorrow have been requested. The case was additionally discussed with Dr. Castañeda. Signed by Wicho Carlton MD 12/20/2004 13:19 Nadine Garcia MD Wicho Carlton MD - Wicho Carlton MD P - ss Job ID: [id number] Document ID: [id number] cc: [id number] * Raleigh Castañeda MD - 12/19/2004 0724 EDT INPATIENT PROGRESS NOTE PT LOC: F002 Service Date: 12/14/2004 Night sheets reviewed. Patient tolerating the therapy program. Vital signs are stable. Patient is afebrile. Medical status is suitable to continue full program activities. Signed by Raleigh Castañeda MD 12/19/2004 08:46 Pipe Corey MDDennis D Woods, MD Raleigh Castañeda MD - Raleigh Castañeda MD A - mt Job ID: [id number] Document ID: [id number] cc: * Raleigh Castañeda MD - 12/19/2004 0000 EDT INPATIENT PROGRESS NOTE PT LOC: F002 Service Date: 12/19/2004 Mr. Burgos is a 14-year-old with stroke syndrome following hypophyseal tumor resection. He has panhypopituitarism. The patient has shown some increased restlessness. He remains nonverbal. Temperature 36.6, pulse 107, respirations 18, blood pressure 123/71. Cardiac rhythm is regular. Lung medellin are clear. Abdomen is soft. G-tube remains in place. Lower extremities not edematous. AND PLAN: Continue program activities with ongoing monitoring of electrolyte status. Continue DDAVP, hydrocortisone, and Synthroid. Signed by Raleigh Castañeda MD 12/21/2004 18:05 Pipe Corey MD Raleigh Castañeda MD - Raleigh Castañeda MD P - MO Job ID: [id number] Document ID: [id number] cc: * Wicho Carlton MD - 12/18/2004 1353 EDT INPATIENT PROGRESS NOTE PT LOC: F002 Service Date: 12/18/2004 Miguel Angel is nonvocal. He has been intermittently showing increased neurologic improvement. Vital signsare stable; afebrile. Heart regular, lungs clear. Abdomen soft, nontender.Neurologic: With continued hemiparesis. IMPRESSION: 1. Continue present therapy program. I did observe him doing some propulsion in his wheelchair using the right arm with maximum cues. 2. Urine: Urinalysis is requested, as the patient has been pulling at his briefs. This may be indication of a UTI. 3. Hypopituitarism: Recheck laboratory studies later this week as previously discussed with Dr. Castañeda. 4. meeting is attended today and case is discussed with all team members. Time spent 35 minutes with greater than 50% of time in direct patient care.. Signed by Wicho Carlton MD 12/18/2004 17:02 Nadine Garcia MD Wicho Carlton MD - Wicho Carlton MD P - mo Job ID: [id number] Document ID: [id number] cc: g * Raleigh Castañeda MD - 12/18/2004 0000 EDT INPATIENT PROGRESS NOTE PT LOC: F002 Service Date: 12/18/2004 Mr. Burgos is a 14-year-old recovering from stroke syndrome related to required surgery for a hypophyseal tumor. As a result, he has panhypopituitarism. He is receiving DDAVP, hydrocortisone and Synthroid. Current temperature is 36. Pulse 100. Respirations 18. Blood pressure 123/80. Cardiac rhythm regular. Lung medellin clear. Abdomen soft. JVD not visible. ASSESSMENT AND PLAN: Continue full program activities with periodic monitoring of electrolyte status. Signed by Raleigh Castañeda MD 12/21/2004 16:31 Dena Castañeda, Pipe Castañeda, Pipe Castañeda MD Raleigh Castañeda MD - Raleigh Castañeda MD P - mt Job ID: [id number] Document ID: [id number] cc: inst * Wicho Carlton MD - 12/17/2004 1331 EDT INPATIENT PROGRESS NOTE PT LOC: F002 Service Date: 12/17/2004 1Trena Michelle is nonvocal this morning. He initially was quite quiet but then did start with intermittent screaming. 2. 3. Vital signs are stable, afebrile. Heart regular. Lungs clear. Abdomen soft and nontender. Bowel sounds present. Calves soft and nontender. Neurologic without change. 4. 5. Sodium 140. BUN 19. 6. 7. IMPRESSION: 8. .Continue present therapy program. Continue Ritalin for current behaviors with good clinical effect. OT is also working on an oral stimulation program. 9. . Hypopituitarism: Laboratory studies appear to be doing well at this point. I did discuss the case with Dr. Raleigh Castañeda and we will recheck his sodium and BUN again on . 10. UTI: He has pulling at his briefs. Will chek UA to eval for infection. Signed by Wicho Carlton MD 12/17/2004 15:36 Nadine Garcia MD Wicho Carlton MD - Wicho Carlton MD P - MT Job ID: [id number] Document ID: [id number] cc: * Raleigh Castañeda MD - 12/17/2004 0000 EDT INPATIENT PROGRESS NOTE PT LOC: F002 Service Date: 12/17/2004 Mr. Burgos is a 14-year-old with stroke syndrome following hypophyseal and open surgery for tumor removal. He has panhypopituitarism and is requiring DDAVP, Synthroid and hydrocortisone. Sodium stable today at 140. Potassium is 4.0. Chloride 101. CO2 28. BUN 19. Creatinine 0.6. Current temperature is 35.7. Pulse 102. Respirations 16. Blood pressure 131/76. Cardiac rhythm is regular. Lung medellin are clear. Abdomen is soft. JVD is not visible. ASSESSMENT AND PLAN: Continue full program activities with ongoing monitoring of electrolyte status. Signed by Raleigh Castañeda MD 12/21/2004 16:31 Pipe Corey MDDennis D Woods, MD Raleigh Castañeda MD - Raleigh Castañeda MD P - mt Job ID: [id number] Document ID: [id number] cc: * Drew Larson MD - 12/16/2004 1309 EDT INPATIENT PROGRESS NOTE PT LOC: F002 Service Date: 12/16/2004 Miguel Angel has no new problems today. He was a bit more agitated this morning than when I had seen him yesterday. His vital signs are stable. He is afebrile. He has a sodium and BUN and electrolytes pending for Friday. In summary, Miguel Angel is a complicated patient status post craniopharyngioma resection, panhypopituitarism, and bilateral thalamic CVAs. His behavior is still variable with intermittent episodes of agitation and irritation. He will continue Ritalin twice daily for a neurostimulant. Gabapentin b.i.d. for neuropathic pain. He will continue hydrocortisonefor adrenal activity and levothyroxine for hypothyroidism. 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 No new complaints were brought up today. His mom reports that he has been feeding himself popsicles this morning. His sodium level was stable at 145 yesterday. Followup levels will be ordered for next week. PHYSICAL EXAMINATION: Vitals are stable. He is afebrile. Chest was clear. Heart regular. Miguel Angel was able to follow some commands today: Thumb wrestling, able to wave on command, and give me a thumbs up on command.He is still unable to verbalize. In summary, Miguel Angel seems to be making some slow progress. Dr. Alarcon had increased his Ritalin last week to 5 mg twice daily. We will continue to monitor his progress. He remains at subacute status. Signed by Drew Larson MD 12/17/2004 14:16 Leroy Boateng MD Drew Larson MD - Drew Larson MD P - lr Job ID: [id number] Document ID: [id number] cc: [facility] * Allison Alarcon MD - 12/15/2004 0305 EDT INPATIENT PROGRESS NOTE PT LOC: F002 Service Date: 12/13/2004 DIAGNOSIS: Bilateral CVAs. SUBJECTIVE: The patient tolerating therapies very well this morning. Team reports this as one of his best sessions yet. He is tolerating more time up., he is responding to commands about 90% of the time. He is doing very well with oral stimulation and there is decreased wailing. OBJECTIVE: Vital signs are stable, affect generally more quiet. Only verbalization is the wail. He has voiced a few words. Remains with left hemiplegia. LABORATORY DATA: BUN 22, sodium 148. ASSESSMENT: Patient doing somewhat better today. Multiple outside team members in from other agencies and social work services that have been involved with Miguel Angel and his family. They met with social work and the team today to talk about ultimate longer term options. Time spent reviewing with them his therapy directions and treatment options. Discussed with mom also increasing his Ritalin dose, which she is amenable to. Team will be assessing over the next few days whether he might be able to start tolerating an afternoon session of therapy if he responds well to the medicine.The patient is still tolerating only subacute level care at this time. As far as BUN and sodium balance, it is somewhat stable since the change in fluids and will check it again tomorrow to make sure he is heading in the right direction PLAN: 1. Continue with present additional fluids after PEG. 2. Request nursing to do q.2 h. oral stim according to the OT protocol while awake. 3. Increase Ritalin to 5 mg q.a.m. , q.noon. extended services in conferencing with mom, team, and outside support team greater than 30 minutes). Signed by Allison Alarcon MD 12/15/2004 19:53 Sky Hollingsworth MD Allison Alarcon MD - Allison Alarcon MD A - re Job ID: [id number] Document ID: [id number] cc: *st * Allison Alarcon MD - 12/14/2004 1601 EDT INPATIENT PROGRESS NOTE PT LOC: F002 Service Date: 12/12/2004 DIAGNOSIS: Status post CVA with left hemiparesis. SUBJECTIVE: The patient has been noted to have more times of quietness and less sense of agitation,although he still has that at moments. Still continues to have limited tolerance of therapies beyonda morning session. OBJECTIVE: Left upper and lower extremities remain without any motor function. The patient still appears predominantly with eyes closedwith head resting to the side. He will respond to requests to lift his head inconsistently for me. No edema in his distal extremities, no redness. LABORATORY DATA: Sodium 147, BUN 23, hematocrit 31.4, WBC 4.5. ASSESSMENT: A patient with CVA with neurologic blindness and marked deficits and cognitive and communication skills and left hemiparesis. The patient is appearing somewhat dehydrated with the decreased flush after feeds PLAN: 1. Increase H2O PEG flush to 50 cc after every tube feeding. 2. Re-check BUN and sodium again tomorrow. 3. Continue at subacute rehab level therapies. Signed by Allison Alarcon MD 12/15/2004 19:53 Sky Hollingsworth MD Allison Alarcon MD - Allison Alarcon MD P - re Job ID: [id number] Document ID: [id number] cc: [id number]??? * Wicho Carlton MD - 12/14/2004 1240 EDT INPATIENT PROGRESS NOTE PT LOC: F002 Service Date: 12/14/2004 Miguel Angel is not offering any complaints this morning. He is crying out intermittently, which appears to be improved on present dosing of Ritalin and with oral stimulation, as outlined by occupational therapy. Vital signs are stable, afebrile. Heart is regular. Lungs are clear. Abdomen is soft and nontender,bowel sounds present. Calves are soft and nontender. Neurologic exam is without change. Impression: 1) Stroke: Continue present therapy program. 2) Panhypopituitarism: Continue to monitor laboratory studies. He is being followed as well by Endocrinology with regards to current medications, fluid administration, and sodium levels. Case is discussed with Dr. Raleigh Castañeda as well regarding ongoing management. Signed by Wicho Carlton MD 12/14/2004 16:01 Nadine Garcia MDRoger C Knakal, MD Wicho Carlton MD - Wicho Carlton MD P - mh Job ID: [id number] Document ID: [id number] cc: kend I * Raleigh Castañeda MD - 12/14/2004 0512 EDT INPATIENT PROGRESS NOTE PT LOC: F002 Service Date: 12/12/2004 Mr. 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 He has panhypopituitarism. Vital signs remain stable, he is afebrile. The patient is showing relative stability of electrolytes. He is requiring occasional adjustments in fluid intake. Cardiac rhythm is regular. Lung medellin are clear. Abdomen is soft. JVD is not visible. ASSESSMENT AND PLAN: 1. Cardiorespiratory status is stable. 2. Continue full program activities. 3. Continue monitoring laboratory studies. Signed by Raleigh Castañeda MD 12/14/2004 10:10 Pipe Corey MD Raleigh Castañeda MD - Raleigh Castañeda MD A - re Job ID: [id number] Document ID: [id number] cc: 24 * Raleigh Castañeda MD - 12/13/2004 1459 EDT INPATIENT PROGRESS NOTE PT LOC: F002 Service Date: 12/11/2004 Night sheets reviewed. Patient tolerating the therapy program. Vital signs are stable. Patient is afebrile. Medical status is suitable to continue full program activities. Signed by Raleigh Castañeda MD 12/13/2004 16:05 Pipe Corey MD Raleigh Castañeda MD - Raleigh Castañeda MD P - ss Job ID: [id number] Document ID: [id number] cc: * Raleigh Castañeda MD - 12/13/2004 1345 EDT INPATIENT PROGRESS NOTE PT LOC: F002 Service Date: 12/10/2004 Mr. Brugos is a 14-year-old recovering from resection of hypophyseal tumor with stroke syndrome andblindness following surgery. He has panhypopituitarism as a result of the operation. Vital signs are stable, he is afebrile. Cardiac rhythm regular. Lung medellin clear. Abdomen is soft. JVD not visible. Sodium 144, potassium 4.1, chloride 104, CO2 30, BUN 21, creatinine 0.6, glucose 179. ASSESSMENT/PLAN: Continue full program activities. Continue DDAVP, hydrocortisone, and Synthroid. Signed by Raleigh Castañeda MD 12/13/2004 16:05 Dena Castaeñda, Pipe Castañeda MD Raleigh Castañeda MD - Raleigh Castañeda MD P - ss Job ID: [id number] Document ID: [id number] cc: 2 * Allison Alarcon MD - 12/12/2004 1211 EDT INPATIENT PROGRESS NOTE PT LOC: F002 Service Date: 12/11/2004 DIAGNOSIS: Status post CVAs with left hemiparesis. SUBJECTIVE: Staff noting overall in the last few days better sleep, less wailing, although it has not resolved. He has been participating well in therapies. Miguel Angel still has no self-report. with mom, who does feel she is seeing changes. She reports he ate a whole popsicle last night and did say the word ???more?? and also ???mom?? . OBJECTIVE: Vital signs are stable. Heart: S1, S2 regular. Lungs relatively clear. The patient possibly making some attempt at deep breath on command for respiratory exam. Extremities: Still not initiating motion in his left or leg. No edema in the extremities. LABS: BUN 21, Sodium 144. TEAM ROUNDS: The patients present functional status and discharge goals and barriers were reviewed.The patient stillappropriate for subacute level care. Staffing feels he has been very safe at nightwith improved sleep patterns and can be placed on frequent checks. Nursing staff reviewed this withthe mom, who feels that would be very safe and agrees with change in supervision level at night. ASSESSMENT: Patient with CVAs, and panhypopituitarism, and left hemiparesis. Sodium levels are slightly increasing so need to be checked again tomorrow. The patient seems to be doing a bit better since placed on the . Discussed with the mom initiation of antibiotics for staph and sinus drainage. Attempt to explain reasoning for proceeding with this. She is in agreement but is for her to understand anatomically what is going on with the sinuses and how they were affected by the surgery. PLAN: 1. sodium and BUN tomorrow. Consider increasing free water. 2. Supervision on window systems administrator decreased to frequent checks. Continue 1:1 with other shifts. (40 minutes total time, greater than 50% care coordination with team and discussion and education with family). Signed by Allison Alarcon MD 12/12/2004 23:51 Sky Hollingsworth MD Allison Alarcon MD - Allison Alarcon MD P - ss Job ID: [id number] Document ID: [id number] cc: t ID: * Raleigh Castañeda MD - 12/12/2004 0904 EDT INPATIENT PROGRESS NOTE PT LOC: F002 Service Date: 12/09/2004 Mr. Burgos is a 14-year-old male recovering from resection of hypophyseal tumor with resultant strokesyndrome and blindness. He has panhypopituitarism as a result of his required surgical therapy andis currently maintained with DDAVP, hydrocortisone, and Synthroid. Current temp is 36.7, pulse 98, respirations 16, blood pressure 113/69. Cardiac rhythm is regular. Lung medellin are clear. Abdomen is soft. JVD is not visible. ASSESSMENT/PLAN: Continue full program activities. Cardiorespiratory status is stable. Continue monitoring renal function and electrolytes. Signed by Raleigh Castañeda MD 12/13/2004 11:18 Pipe Corey MD Raleigh Castañeda MD - Raleigh Castañeda MD A - ss Job ID: [id number] Document ID: [id number] cc: 80 documented in this encounter Plan of Treatment Upcoming Encounters Date Type Department Care Team (Late st Contact Info) Description 09/09/2024 10:20 EST Office Visit [facility] Endocrinology - [place] [address] [place] [address] Day Littlejohn MD PhD [address] [place] [address] documented as of this encounter Procedures Procedure Name Priority Date/Time Associated Diagnosis Comments RAD US DOPPLER EXT VENOUS UNILATERAL Routine 12/26/2004 15:16 EDT BUN Routine 12/02/2004 16:30 EDT SODIUM Routine 12/02/2004 16:[address] HEAD WO CONTRAST Routine 11/29/2004 1 4:39 EDT BUN Routine 11/29/2004 6:25 EDT SODIUM Routine 11/29/2004 6:25 EDT C. DIFFICILE TOXIN Routine 11/28/2004 13 :30 EDT BUN Routine 11/28/2004 12:20 EDT SODIUM Routine 11/28/2004 12:20 EDT BUN Routine 11/27/2004 6:15 EDT SODIUM Routine 11/27/2004 6:15 EDT TESTS ADDED BY PHONE Routine 11/26/2004 5:50 EDT BUN Routine 11/26/2004 5:50 EDT TSH Routine 11/26/2004 5:50 EDT T4 FREE Routine 11/26/2004 5:50 EDT SODIUM Routine 11/26/2004 5:50 EDT SODIUM Routine 11/25/2004 15:00 EDT BUN Routine 11/25/2004 6:05 EDT SODIUM Routine 11/25/2004 6:05 EDT BUN Routine 11/24/2004 6:15 EDT SODIUM Routine 11/24/2004 6:15 EDT BUN Routine 11/23/2004 5:50 EDT SODIUM Routine 11/23/2004 5:50 EDT CREATININE Routine 11/22/2004 7:00 EDT BUN Routine 11/22/2004 7:00 EDT SODIUM Routine 11/22/2004 7:00 EDT CREATININE Routine 11/21/2004 6:50 EDT COMPLETE BLOOD COUNT Routine 11/21/2004 6:50 EDT BUN Routine 11/21/2004 6:50 EDT ELECTROLYTES Routine 11/21/2004 6:50 EDT SODIUM Routine 11/21/2004 6:00 EDT documented in this encounter Results * RAD US DOPPLER EXT VENOUS UNILATERAL (12/26/2004 15:16 EDT) Anatomical Region Laterality Modality Other 12/26/2004 15:1 6 EDT Impressions 03/02/2009 14:19 EDT IMPRESSION: Lowe-scale imaging shows no evidence of DVT. However, the examination is limited as Doppler interrogation could not be performed adequately. /[facility] Narrative 03/02/2009 14:19 EDT POST OP CVA ? TENDER LEFT THIGH ?? R/O DVT ?'SAME DAY' LEFT LEG ULTRASOUND, 12/26/04 FINDINGS: The left common femoral, superficial femoral, and popliteal veins demonstrate normal compression. Doppler interrogation of the vessels was limited as the patient could not hold still and only color Doppler of the left popliteal vein could be accomplished. No augmentation could be obtained secondary to the fact that the patient could not cooperate. Procedure Note Radha Ricci MD - 03/02/2009 POST OP CVA TENDER LEFT THIGH R/O DVT 'SAME DAY' LEFT LEG ULTRASOUND, 12/26/04 FINDINGS: The left common femoral, superficial femoral, and popliteal veins demonstrate normal compression. Doppler interrogation of the vessels was limited as the patient could not hold still and only color Doppler of the left popliteal vein could be accomplished. No augmentation could be obtained secondary to the fact that the patient could not cooperate. IMPRESSION IMPRESSION: Lowe-scale imaging shows no evidence of DVT. However, the examination is limited as Doppler interrogation could not be performed adequately. /[facility] Ermelinda Lee MD IM US ORDERABLES * (ABNORMAL) SODIUM (12/02/2004 16:30 EDT) Sodium 134(L) 136 - 145 mEq/L [facility] 12/02/2004 16:3 0 EDT 12/02/2004 16:36 EDT Allison Alarcon MD CHEMISTRY & BLOOD GA S ORDERABLES [facility] [address] [place] [address] * BUN (12/02/2004 16:30 EDT) BUN 17 8 - 21 mg/dl [facility] 12/02/2004 16:3 0 EDT 12/02/2004 16:36 EDT Allison Alarcon MD CHEMISTRY & BLOOD GA S ORDERABLES [facility] [address] [place] [address] * CT HEAD WO CONTRAST (11/29/2004 14:39 EDT) Anatomical Region Laterality Modality Other 11/29/2004 14:3 9 EDT Narrative 03/02/2009 14:06 EDT H/O CONTINUED SIG DEFICITS, RESECTION R/O F/U FROM 11/11 CT SCAN, EVALUATE RESECTION CT HEAD WITHOUT CONTRAST 11/29/04 COMPARISON: 11/05/04 FINDINGS: A small amount of extraaxial collection on the right seen previously has since essentially completely resolved. The ventricles are minimally more prominent than previous examination probably from some ongoing resolution of postoperative change. The temporal horns are not grossly different and I have a low suspicion that this represents hydrocephalus. The sulci remain prominent with no effacement and if there is strong clinical concern for hydrocephalus, perhaps a follow up scan in the near future might be helpful. There is no acute intracranial hemorrhage. Focal areas of tissue loss in the anterior thalami again seen better demonstrated on the present study. Vascular clip and other surgical clips are noted. Overall, little significant change since the previous examination. The bone windows show some interval clearing of left sphenoid sinus thickening. No other gross abnormality. IMPRESSION: Little significant change since the previous examination with no acute hemorrhage or other definite change since the previous examination. Slight increased size of the ventricles is felt to most likely just represent some continued evolution/resolution of postoperative changes, but if there is strong clinical concern for hydrocephalus then follow up study in the near future is suggested. D 11/29/04 T 12/03/04 /vicky Procedure Note AlsoJose Armando ferris MD - 03/02/2009 H/O CONTINUED SIG DEFICITS, RESECTION R/O F/U FROM 11/11 CT SCAN, EVALUATE RESECTION CT HEAD WITHOUT CONTRAST 11/29/04 COMPARISON: 11/05/04 FINDINGS: A small amount of extraaxial collection on the right seen previously has since essentially completely resolved. The ventricles are minimally more prominent than previous examination probably from some ongoing resolution of postoperative change. The temporal horns are not grossly different and I have a low suspicion that this represents hydrocephalus. The sulci remain prominent with no effacement and if there is strong clinical concern for hydrocephalus, perhaps a follow up scan in the near future might be helpful. There is no acute intracranial hemorrhage. Focal areas of tissue loss in the anterior thalami again seen better demonstrated on the present study. Vascular clip and other surgical clips are noted. Overall, little significant change since the previous examination. The bone windows show some interval clearing of left sphenoid sinus thickening. No other gross abnormality. IMPRESSION: Little significant change since the previous examination with no acute hemorrhage or other definite change since the previous examination. Slight increased size of the ventricles is felt to most likely just represent some continued evolution/resolution of postoperative changes, but if there is strong clinical concern for hydrocephalus then follow up study in the near future is suggested. D 11/29/04 T 12/03/04 / Jodi Parr MD IMG CT ORDERABLES * SODIUM (11/29/2004 6:25 EDT) Sodium 137 136 - 145 mEq/L [facility] Comment:Performed at [facility] [place], [place] 11/29/2004 6:25 EDT 11/29/2004 6:36 EDT Allison Alarcon MD CHEMISTRY & BLOOD GA S ORDERABLES [facility] [address] [place] [address] * BUN (11/29/2004 6:25 EDT) BUN 18 8 - 21 mg/dl [facility] Comment:Performed at [facility] [place], [place] 11/29/2004 6:25 EDT 11/29/2004 6:36 EDT Allison Alarcon MD CHEMISTRY & BLOOD GA S ORDERABLES [facility] [address] [place] [address] * C. DIFFICILE TOXIN (11/28/2004 13:30 EDT) Specimen Description Feces [facility] Result No C.difficil e toxin A or toxin B detected. [facility] Report Status Final [id number] [facility] 11/28/2004 13:3 0 EDT 11/28/2004 16:20 EDT Allison Alarcon MD MICROBIOLOGY - GENER AL ORDERABLES [facility] [address] [place] [address] * (ABNORMAL) SODIUM (11/28/2004 12:20 EDT) Sodium 134(L) 136 - 145 mEq/L [facility] Comment:Performed at [place], [place] 11/28/2004 12:2 0 EDT 11/28/2004 12:41 EDT Allison Alarcon MD CHEMISTRY & BLOOD GA S ORDERABLES Performing Organization Address [facility]/ZIP Co de Phone Number [facility] [address] [place] [address] * BUN (11/28/2004 12:20 EDT) BUN 19 8 - 21 mg/dl [facility] Comment:Performed at [place], [place] 11/28/2004 12:2 0 EDT 11/28/2004 12:41 EDT Allison Alarcon MD CHEMISTRY & BLOOD GA S ORDERABLES Performing Organization Address [facility] Co de Phone Number [facility] [address] [place] [address] * SODIUM (11/27/2004 6:15 EDT) Sodium 137 136 - 145 mEq/L [facility] Comment:Performed at [place], [place] 11/27/2004 6:15 EDT 11/27/2004 6:26 EDT Allison Alarcon MD CHEMISTRY & BLOOD GA S ORDERABLES Performing Organization Address [facility] Co de Phone Number [facility] [address] [place] [address] * BUN (11/27/2004 6:15 EDT) BUN 21 8 - 21 mg/dl [facility] Comment:Performed at [place], [place] 11/27/2004 6:15 EDT 11/27/2004 6:26 EDT Allison Alarcon MD CHEMISTRY & BLOOD GA S ORDERABLES Performing Organization Address [facility] Phone Number [facility] [address] [place] [address] * (ABNORMAL) TSH (11/26/2004 5:50 EDT) TSH 0.15(L) 0.50 - 5.00 uIU/ml [facility] 11/26/2004 5:50 EDT 11/26/2004 6:53 EDT Allison Alarcon MD CHEMISTRY & BLOOD GA S ORDERABLES Performing Organization Address [facility] de Phone Number [facility] [address] [place] [address] * SODIUM (11/26/2004 5:50 EDT) Sodium 138 136 - 145 mEq/L [facility] Comment:Performed at [place], [place] 11/26/2004 5:50 EDT 11/26/2004 6:53 EDT Allison Alarcon MD CHEMISTRY & BLOOD GA S ORDERABLES Performing Organization Address [facility] Co de Phone Number [facility] [address] [place] [address] * T4 FREE (11/26/2004 5:50 EDT) Free T4 1.2 0.8 - 1.8 ng/dl [facility] 11/26/2004 5:50 EDT 11/26/2004 6:53 EDT Allison Alarcon MD CHEMISTRY & BLOOD GA S ORDERABLES Performing Organization Address City/[facility]/ZIP Co de Phone Number [facility] [address] [place] [address] * BUN (11/26/2004 5:50 EDT) BUN 20 8 - 21 mg/dl [facility] Comment:Performed at [facility], [place], [place] 11/26/2004 5:50 EDT 11/26/2004 6:53 EDT Allison Alarcon MD CHEMISTRY & BLOOD GA S ORDERABLES Performing Organization Address [facility] de Phone Number [facility] [address] [place] [address] * TESTS ADDED BY PHONE (11/26/2004 5:50 EDT) Tests to be added TSH,FT4 [facility] 11/26/2004 5:50 EDT 11/26/2004 6:53 EDT Allison Alarcon MD CHEMISTRY & BLOOD GA S ORDERABLES Performing Organization Address [facility] de Phone Number [facility] [address] [place] [address] * SODIUM (11/25/2004 15:00 EDT) Sodium 137 136 - 145 mEq/L [facility] 11/25/2004 15:0 0 EDT 11/25/2004 15:12 EDT Allison Alarcon MD CHEMISTRY & BLOOD GA S ORDERABLES Performing Organization Address City/[facility]/ZIP Co de Phone Number [facility] [address] [place] [address] * SODIUM (11/25/2004 6:05 EDT) Sodium 137 136 - 145 mEq/L [facility] Comment:Performed at [place], [place] 11/25/2004 6:05 EDT 11/25/2004 9:31 EDT Allison Alarcon MD CHEMISTRY & BLOOD GA S ORDERABLES Performing Organization Address [facility] Phone Number [facility] [address] [place] [address] * BUN (11/25/2004 6:05 EDT) BUN 21 8 - 21 mg/dl [facility] Comment:Performed at [place], [place] 11/25/2004 6:05 EDT 11/25/2004 9:31 EDT Allison Alarcon MD CHEMISTRY & BLOOD GA S ORDERABLES Performing Organization Address [facility] Phone Number [facility] [address] [place] [address] * SODIUM (11/24/2004 6:15 EDT) Sodium 144 136 - 145 mEq/L [facility] Comment:Performed at [place], [place] 11/24/2004 6:15 EDT 11/24/2004 9:58 EDT Allison Alarcon MD CHEMISTRY & BLOOD GA S ORDERABLES Performing Organization Address [facility] de Phone Number [facility] [address] [place] [address] * (ABNORMAL) BUN (11/24/2004 6:15 EDT) BUN 22(H) 8 - 21 mg/dl [facility] Comment:Performed at [place], [place] 11/24/2004 6:15 EDT 11/24/2004 9:58 EDT Allison Alarcon MD CHEMISTRY & BLOOD GA S ORDERABLES [facility] [address] [place] [address] * (ABNORMAL) SODIUM (11/23/2004 5:50 EDT) Sodium 146(H) 136 - 145 mEq/L [facility] Comment:Performed at [place], [place] 11/23/2004 5:50 EDT 11/23/2004 7:26 EDT Allison Alarcon MD CHEMISTRY & BLOOD GA S ORDERABLES Performing Organization Address [facility] Co de Phone Number [facility] [address] [place] [address] * (ABNORMAL) BUN (11/23/2004 5:50 EDT) BUN 25(H) 8 - 21 mg/dl [facility] Comment:Performed at [place] 11/23/2004 5:50 EDT 11/23/2004 7:26 EDT Allison Alarcon MD CHEMISTRY & BLOOD GA S ORDERABLES Performing Organization Address [facility] Co de Phone Number [facility] [address] [place] [address] * (ABNORMAL) SODIUM (11/22/2004 7:00 EDT) Sodium 147(H) 136 - 145 mEq/L [facility] Comment:Performed at [place], [place] 11/22/2004 7:00 EDT 11/22/2004 7:09 EDT Allison Alarcon MD CHEMISTRY & BLOOD GA S ORDERABLES Performing Organization Address [facility] Co de Phone Number [facility] [address] [place] [address] * CREATININE (11/22/2004 7:00 EDT) Creatinine 0.8 0.6 - 1.2 mg/dl [facility] Comment:Performed at [facility], [place], [place] 11/22/2004 7:00 EDT 11/22/2004 7:09 EDT Allison Alarcon MD HISTORICAL LAB FOR S Q LOAD Performing Organization Address [facility] Co de Phone Number [facility] [address] [place] [address] * (ABNORMAL) BUN (11/22/2004 7:00 EDT) BUN 28(H) 8 - 21 mg/dl [facility] Comment:Performed at [facility], [place], [place] 11/22/2004 7:00 EDT 11/22/2004 7:09 EDT Allison Alarcon MD CHEMISTRY & BLOOD GA S ORDERABLES Performing Organization Address [facility] de Phone Number [facility] [address] [place] [address] * (ABNORMAL) ELECTROLYTES (11/21/2004 6:50 EDT) Sodium 146(H) 136 - 145 mEq/L [facility] Potassium 4.4 3.6 - 5.2 mEq/L [facility] Chloride 105 96 - 110 mEq/L [facility] CO2 33(H) 24 - 32 mEq/L [facility] Comment:Performed at [facility], [place], [place] 11/21/2004 6:50 EDT 11/21/2004 7:26 EDT Allison Alarcon MD CHEMISTRY & BLOOD GA S ORDERABLES Performing Organization Address [facility] de Phone Number [facility] [address] [place] [address] * (ABNORMAL) HEMAGRAM (11/21/2004 6:50 EDT) WBC 5.20 4.5 - 13.0 K/cmm [facility] RBC 3.79(L) 4.50 - 5.30 M/cmm [facility] Hemoglobin 10.7(L) 13.0 - 16.0 gm/dl [facility] HCT 31.9(L) 37.0 - 49.0 % [facility] MCV 84 78 - 98 fl [facility] MCH 28.2 pg [facility] MCHC 33.6 gm/dl [facility] PLT 259 156 - 312 K/cmm [facility] RDW-CV 16.0 % [facility] 11/21/2004 6:50 EDT 11/21/2004 7:26 EDT Allison Alarcon MD HEMATOLOGY & PF4 ORD ERABLES Performing Organization Address [facility] Co de Phone Number [facility] [address] [place] [address] * CREATININE (11/21/2004 6:50 EDT) Creatinine 0.8 0.6 - 1.2 mg/dl [facility] Comment:Performed at [place] 11/21/2004 6:50 EDT 11/21/2004 7:26 EDT Allison Alarcon MD HISTORICAL LAB FOR S Q LOAD Performing Organization Address [facility] de Phone Number [facility] [address] [place] [address] * (ABNORMAL) BUN (11/21/2004 6:50 EDT) BUN 30(H) 8 - 21 mg/dl [facility] Comment:Performed at [place], [place] 11/21/2004 6:50 EDT 11/21/2004 7:26 EDT Allison Alarcon MD CHEMISTRY & BLOOD GA S ORDERABLES Performing Organization Address [facility] Co de Phone Number [facility] [address] [place] [address] * SODIUM (11/21/2004 6:00 EDT) Sodium 136 - 145 mEq/L [facility] 11/21/2004 6:00 EDT 11/21/2004 6:41 EDT Allison Alarcon MD CHEMISTRY & BLOOD GA S ORDERABLES [facility] [address] [place] [address] documented in this encounter Visit Diagnoses Not on filedocumented in this encounter
--- OUTSIDE RECORDS SUMMARY | 2024-03-05 15:52 | XMS_ITS | Encounter Summary ---
Author Organization [facility] Address [address] [place] [address] Care Team Providers Care Watch Parts Inspector Name Role Phone Yan Demarco MD Primary Care Provider [phone] Corin Skinner MD Primary Care Provider Akil Serrano MD Primary Care Provider [phone] Encounter Details Date Type Department Care Team (Late st Contact Info) Description 12/08/2004 Before PRISM Converted Visit (Maple) [facility] - Maple conversion [address], [place] [address] Raleigh Angelo MD [address] [phone] Social History Tobacco Use Types Packs/Day Years Used Date Smoking Tobacco: Never Assessed Sex and Gender Information Value Date Recorded Sex Assigned at Not on file Gender Identity Not on file Sexual Orientation Not on file documented as of this encounter Progress Notes * Raleigh Angelo MD - 02/15/2011 1140 EDT INPATIENT REHABILITATION PROGRESS NOTE F002 DATE OF SERVICE: 12/08/2004 The patient 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 He isreceiving DDAVP, hydrocortisone, and Synthroid. Sodium yesterday was 139, BUN of 19. Temperature today 36.5, pulse 70, respirations 24, blood pressure 100/72. Cardiac rhythm is regular. Lung medellin are clear. Abdomen is soft. JVD is not visible.The patient appears somewhat calmer today and has participated in some therapy activities. ASSESSMENT AND PLAN: Continue full program activities. Continue DDAVP, Synthroid, and hydrocortisone. Continue periodic monitoring of electrolytes and renal function. This document has been electronically signed by RALEIGH ANGELO MD on 12/09/2004 10:44:20. - RLAEIGH ANGELO MD /lr Voice ID: [id number] Doc ID: [id number] nthroid, and hydrocortisone. Continue periodic monitoring of electrolytes and renal function. - RALEIGH ANGELO MD /lr Voice ID: [id number] Doc ID: [id number] documented in this encounter Plan of Treatment Upcoming Encounters Date Type Department Care Team (Late st Contact Info) Description 09/09/2024 10:20 EST Office Visit [facility] [place] [address] Day Littlejohn MD PhD [address] [place] [address] [place] [phone] documented as of this encounter Visit Diagnoses Not on filedocumented in this encounter Care Teams Watch Parts Inspector Relationship Specialty Start Date End Date Yan Demarco MD [address] [place] [phone] PCP - General 08/22/09 02/20/10 Corin Skinner MD [address] [place] [phone] PCP - General 10/24/08 08/21/09 Akil Serrano MD [address] [facility] [place] [address] PCP - General 02/21/10 04/16/11 documented as of this encounter
--- OUTSIDE RECORDS SUMMARY | 2024-03-05 15:52 | XMS_ITS | Encounter Summary ---
Author Organization [facility] Address [address] [place] [address] Care Team Providers Care Utilization Management Manager Name Role Phone Yan Demarco MD Primary Care Provider Corin Skinner MD Primary Care Provider [phone] Akil Serrano MD Primary Care Provider [phone] Encounter Details Date Type Department Care Team (Late st Contact Info) Description 11/30/2004 Before PRISM Converted Visit (Maple) [facility] - Maple conversion [address] [place], [place] [address] Raleigh Angelo MD [address] [phone] Social History Tobacco Use Types Packs/Day Years Used Date Smoking Tobacco: Never Assessed Sex and Gender Information Value Date Recorded Sex Assigned at Not on file Gender Identity Not on file Sexual Orientation Not on file documented as of this encounter Progress Notes * Raleigh Angelo MD - 02/15/2011 1200 EDT INPATIENT REHABILITATION PROGRESS NOTE F002 DATE OF SERVICE: 11/30/2004 Mr. 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 He has been intermittently restless. Vital signs: Temperature 36.7, pulse 85, respirations 16, blood pressure 129/84. He is currently resting quietly. Cardiac rhythm regular. Lung medellin clear. Abdomen is soft. JVD is not visible. ASSESSMENT/PLAN: Continue q.48 h. monitoring of electrolytes and renal status. Continue program activities as tolerated. This document has been electronically signed by RALEIGH RASMUSSEN on 11/30/2004 16:02:54. - RALEIGH ANGELO MD /ss Voice ID: [id number] Doc ID: [id number] phaD: 11/30/2004 - RALEIGH ANGELO MD /ss Voice ID: [id number] Doc ID: [id number] documented in this encounter Plan of Treatment Upcoming Encounters Date Type Department Care Team (Late st Contact Info) Description 09/09/2024 10:20 EST Office Visit [facility] Endocrinology - [address] [address] Day Littlejohn MD PhD [address] [place] [address] [place] [phone] documented as of this encounter Visit Diagnoses Not on filedocumented in this encounter Care Teams Utilization Management Manager Relationship Specialty Start Date End Date Yan Demarco MD [address] [place] [phone] PCP - General 08/22/09 02/20/10 Corin Skinner MD [address] [place] [phone] PCP - General 10/24/08 08/21/09 Akil Serrano MD [address] [place] [phone] PCP - General 02/21/10 04/16/11 documented as of this encounter
--- OUTSIDE RECORDS SUMMARY | 2024-03-05 15:52 | XMS_ITS | Encounter Summary ---
Author Organization [facility] Address [address] [place] [address] Care Team Providers Care Filling Station Equipment Mechanic Name Role Phone Yan Demarco MD Primary Care Provider Corin Skinner MD Primary Care Provider [phone] Akil Serrano MD Primary Care Provider [phone] Encounter Details Date Type Department Care Team (Late st Contact Info) Description 12/07/2004 Before PRISM Converted Visit (Maple) [facility] - Maple conversion [address] [place], [place] [address] Raleigh Angelo MD [address] [phone] Social History Tobacco Use Types Packs/Day Years Used Date Smoking Tobacco: Never Assessed Sex and Gender Information Value Date Recorded Sex Assigned at Not on file Gender Identity Not on file Sexual Orientation Not on file documented as of this encounter Progress Notes * Raleigh Angelo MD - 02/15/2011 1140 EDT INPATIENT REHABILITATION PROGRESS NOTE F002 DATE OF SERVICE: 12/07/2004 The patient is a 14-year-old status post tumor resection including transsphenoidal and open surgery. He has secondary panhypopituitarism and stroke syndrome including blindness. Temperaturetoday is 36.9, pulse 79, respirations 20, blood pressure 92/48. Cardiac rhythm is regular. Lung medellin are clear. Abdomen is soft. JVD is not visible. Electrolytes and renal function studies from today pending. ASSESSMENT AND PLAN: Continue fullprogram activities. Review laboratory results when available. This document has been electronically signed by RALEIGH ANGELO MD on 12/09/2004 10:44:09. - RALEIGH ANGELO MD /lr Voice ID: [id number] Doc ID: [id number] [facility] ASSESSMENT AND PLAN: Continue full program activities. Review laboratory results when available. - RALEIGH ANGELO MD /lr Voice ID: [id number] Doc ID: [id number] documented in this encounter Plan of Treatment Upcoming Encounters Date Type Department Care Team (Late st Contact Info) Description 09/09/2024 10:20 EST Office Visit [facility] Endocr[facility]ology - [address] [address] Day Littlejohn MD PhD [address] [place] [address] [address] [place] [phone] documented as of this encounter Visit Diagnoses Not on filedocumented in this encounter Care Teams Filling Station Equipment Mechanic Relationship Specialty Start Date End Date Yan Demarco MD [address] [place] [phone] PCP - General 08/22/09 02/20/10 Corin Skinner MD [address] [place] [phone] PCP - General 10/24/08 08/21/09 Akil Serrano MD [address] [place] [phone] PCP - General 02/21/10 04/16/11 documented as of this encounter
--- OUTSIDE RECORDS SUMMARY | 2024-03-05 15:52 | XMS_ITS | Encounter Summary ---
Author Organization [facility] Address [address] [place] [address] Care Team Providers Care Channel Process Supervisor Name Role Phone Yan Demarco MD Primary Care Provider [phone] Corin Skinner MD Primary Care Provider Akil Serrano MD Primary Care Provider [phone] Encounter Details Date Type Department Care Team (Late st Contact Info) Description 12/01/2004 Before PRISM Converted Visit (Maple) [facility] - Maple conversion [address] [place] [address] Allison Alarcon MD [address] [place] [phone] Social History Tobacco Use Types Packs/Day Years Used Date Smoking Tobacco: Never Assessed Sex and Gender Information Value Date Recorded Sex Assigned at Not on file Gender Identity Not on file Sexual Orientation Not on file documented as of this encounter Progress Notes * Allison Alarcon MD - 02/15/2011 1142 EDT INPATIENT REHABILITATION PROGRESS NOTE F002 DATE OF SERVICE: 12/01/2004 DIAGNOSIS: Status post CVA/panhypopituitarism. SUBJECTIVE: Miguel Angel is still having variable times of agitation. He consistently pulls and holds and digs at his right ear. Only verbalization is a wail. OBJECTIVE: Vital signs are stable. The patient is having again intermittent awake and resting times. Otoscopic exam to the right ear canal is showing no evidence of any erythema or change in ear drum. ASSESSMENT: A patient with CVA. Indicating right ear pain; will try liquid anesthetic drops to the ear and see how he responds. BUN and sodium were not drawn today due to an error. As these have beenrelatively stable, we will wait until tomorrow. PLAN: 1. BUN and sodium tomorrow. 2. Auralgan drops to his right ear. This document has been electronically signed by ALLISON ALARCON MD on 12/02/2004 09:25:39. - ALLISON ALARCON MD /re Voice ID: [id number] Doc ID: [id number] ry liquid anesthetic drops to the ear and see how he responds. BUN and sodium were not drawn today due to an error. As these have been relatively stable, we will wait until tomorrow. PLAN: 1. BUN and sodium tomorrow. 2. Auralgan drops to his right ear. - ALLISON ALARCON MD /re Voice ID: [id number] Doc ID: [id number] documented in this encounter Plan of Treatment Upcoming Encounters Date Type Department Care Team (Late st Contact Info) Description 09/09/2024 10:20 EST Office Visit [facility] Endocrinology - [address] [phone] Day Littlejohn MD PhD [address] [place] [address] [address] [place] [phone] documented as of this encounter Visit Diagnoses Not on filedocumented in this encounter Care Teams Channel Process Supervisor Relationship Specialty Start Date End Date Yan Demarco MD [address] [place] [phone] PCP - General 08/22/09 02/20/10 Corin Skinner MD [address] [phone] PCP - General 10/24/08 08/21/09 Akil Serrano MD [address] [address] PCP - General 02/21/10 04/16/11 documented as of this encounter
--- OUTSIDE RECORDS SUMMARY | 2024-03-05 15:52 | XMS_ITS | Encounter Summary ---
Author Organization [facility] Address [address] [place] [address] Care Team Providers Care Chart Collector Name Role Phone Yan Demarco MD Primary Care Provider Corin Skinner MD Primary Care Provider Akil Serrano MD Primary Care Provider [phone] Encounter Details Date Type Department Care Team (Late st Contact Info) Description 11/28/2004 Before PRISM Converted Visit (Maple) [facility] - Maple conversion [address] [place], [place] [address] Raleigh Angelo MD [address] [phone] Social History Tobacco Use Types Packs/Day Years Used Date Smoking Tobacco: Never Assessed Sex and Gender Information Value Date Recorded Sex Assigned at Not on file Gender Identity Not on file Sexual Orientation Not on file documented as of this encounter Progress Notes * Raleigh Angelo MD - 02/15/2011 1157 EDT INPATIENT REHABILITATION PROGRESS NOTE F002 DATE OF SERVICE: 11/28/2004 The patient is a 14-year-old boy recovering from 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 Laboratory data available includes a free T4 within normal limits at 1.2, sodium mildly decreased at 134, leading to a decrease in administered free water. Vital signs are stable. The patient is afebrile. Cardiac rhythm is regular. Lung medellin areclear. Abdomen is soft. JVD is not visible. ASSESSMENT AND PLAN: Continue full program activities. Continue gastrostomy tube feedings and fluidadministration. This document has been electronically signed by RALEIGH ANGELO MD on 11/30/2004 08:02:51. - RALEIGH ANGELO MD /lr Voice ID: [id number] Doc ID: [id number] 0Vital signs are stable. The patient is afebrile. Cardiac rhythm is regular. Lung medellin are clear.Abdomen is soft. JVD is not visible. ASSESSMENT AND PLAN: Continue full program activities. Continue gastrostomy tube feedings and fluidadministration. - RALEIGH ANGELO MD /lr Voice ID: [id number] Doc ID: [id number] documented in this encounter Plan of Treatment Upcoming Encounters Date Type Department Care Team (Late st Contact Info) Description 09/09/2024 10:20 EST Office Visit [facility] Endocrinology - [address] [phone] Day Littlejohn MD PhD [address] [place] [address] [address] [place] [address] documented as of this encounter Visit Diagnoses Not on filedocumented in this encounter Care Teams Chart Collector Relationship Specialty Start Date End Date Yan Demarco MD [address] [place] [address] PCP - General 08/22/09 02/20/10 Corin Skinner MD [address] [place] [phone] PCP - General 10/24/08 08/21/09 Akil Serrano MD [address] [facility] [address] [place] [address] PCP - General 02/21/10 04/16/11 documented as of this encounter
--- OUTSIDE RECORDS SUMMARY | 2024-03-05 15:52 | XMS_ITS | Encounter Summary ---
Author Organization [facility] Address [address] [place] [address] Care Team Providers Care Vp Delivery Name Role Phone Yan Demarco MD Primary Care Provider [phone] Corin Skinner MD Primary Care Provider Akil Serrano MD Primary Care Provider [phone] Encounter Details Date Type Department Care Team (Late st Contact Info) Description 11/25/2004 Before PRISM Converted Visit (Maple) [facility] - Maple conversion [address] [place] [address] Kylie Larson MD [address] [place] [address] [address] [place] [address] Social History Tobacco Use Types Packs/Day Years Used Date Smoking Tobacco: Never Assessed Sex and Gender Information Value Date Recorded Sex Assigned at Not on file Gender Identity Not on file Sexual Orientation Not on file documented as of this encounter Progress Notes * Kylie Larson MD - 02/15/2011 1149 EDT INPATIENT REHABILITATION PROGRESS NOTE F002 DATE OF SERVICE: 11/25/2004 Miguel Angel is a 14-year-old boy 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 His sodium dropped a bit precipitously from yesterday to today from 144 to 137 withincreased water boluses. I discontinued the 200 cc four times a day bolus and increased his postfeed bolus to 75 cc. I will check a sodium level later today to see where he is at. I will speak with Dr. Edwards if necessary. Otherwise, Miguel Angel had a very irritable day yesterday. I am still consideringlong-acting pain medication for the possibility of thalamic central mediated pain syndrome. I wouldlike to get another MRI of his brain to assess extent of thalamic injury and any other injury. Thiswill be reviewed with Dr. Álvarez after the weekend. Otherwise, he will continue therapy services as tolerated. This document has been electronically signed by KYLIE LARSON MD on 11/27/2004 11:02:08. D: - KYLIE LARSON MD /re Voice ID: [id number]: [id number] aspalpha -KYLIE LARSON MD /re Voice ID: [id number] Doc ID: [id number] documented in this encounter Plan of Treatment Upcoming Encounters Date Type Department Care Team (Late st Contact Info) Description 09/09/2024 10:20 EST Office Visit [facility] Endocrinology - [place] [phone] Day Littlejohn MD PhD [address] [place] [address] [place] [phone] documented as of this encounter Visit Diagnoses Not on filedocumented in this encounter Care Teams Vp Delivery Relationship Specialty Start Date End Date Yan Demarco MD [address] [place] [address] PCP - General 08/22/09 02/20/10 Corin Skinner MD [address] [place] [phone] PCP - General 10/24/08 08/21/09 Akil Serrano MD [address] [place] [address] PCP - General 02/21/10 04/16/11 documented as of this encounter
--- OUTSIDE RECORDS SUMMARY | 2024-03-05 15:52 | XMS_ITS | Encounter Summary ---
Author Organization [facility] Address [address] [place] [address] Care Team Providers Care Commercial Maintenance Technician Name Role Phone Yan Demarco MD Primary Care Provider [phone] Corin Skinner MD Primary Care Provider Akil Serrano MD Primary Care Provider [phone] Encounter Details Date Type Department Care Team (Late st Contact Info) Description 12/02/2004 Before PRISM Converted Visit (Maple) [facility] - Maple conversion [address] [place] [address] Allison Alarcon MD [address] [place] [phone] Social History Tobacco Use Types Packs/Day Years Used Date Smoking Tobacco: Never Assessed Sex and Gender Information Value Date Recorded Sex Assigned at Not on file Gender Identity Not on file Sexual Orientation Not on file documented as of this encounter Progress Notes * Allison Alarcon MD - 02/14/2011 1629 EDT INPATIENT REHABILITATION PROGRESS NOTE F002 DATE OF SERVICE: 12/02/2004 DIAGNOSIS: CVA. The patient was seen and examined today. Vital signs are stable and the patient is afebrile. No newclinical issues were identified, and the patient is to continue in the rehabilitation program. line has clotted off. IV team is recommending a TPA treatment and we are waiting for that to be acquired before we can try to get his labs. Otherwise, the patient is remaining stable. This document has been electronically signed by ALLISON ALARCON MD on 12/03/2004 19:00:32. - ALLISON ALARCON MD /re Voice ID: [id number] Doc ID: [id number] PICC line has clotted off. IV team is recommending a TPA treatment and we are waiting for that to be acquired before we can try to get his labs. Otherwise, the patient is remaining stable. - ALLISON ALARCON MD /re Voice ID: [id number] Doc ID: [id number] documented in this encounter Plan of Treatment Upcoming Encounters Date Type Department Care Team (Late st Contact Info) Description 09/09/2024 10:20 EST Office Visit [facility] Endocrinology - [address] [phone] Day Littlejohn MD PhD [address] [place] [address] [address] [place] [address] documented as of this encounter Visit Diagnoses Not on filedocumented in this encounter Care Teams Commercial Maintenance Technician Relationship Specialty Start Date End Date Yan Demarco MD [address] [place] [address] PCP - General 08/22/09 02/20/10 Corin Skinner MD [address] [place] [phone] PCP - General 10/24/08 08/21/09 Akil Serrano MD [address] [phone] PCP - General 02/21/10 04/16/11 documented as of this encounter
--- OUTSIDE RECORDS SUMMARY | 2024-03-05 15:52 | XMS_ITS | Encounter Summary ---
Author Organization [facility] Address [address] [place] [address] Care Team Providers Care Sap Bods Developer Name Role Phone Yan Demarco MD Primary Care Provider Corin Skinner MD Primary Care Provider [phone] Akil Serrano MD Primary Care Provider [phone] Encounter Details Date Type Department Care Team (Late st Contact Info) Description 12/06/2004 Before PRISM Converted Visit (Maple) [facility] - Maple conversion [address] [place] [address] Allison Alarcon MD [address] [place] [phone] Social History Tobacco Use Types Packs/Day Years Used Date Smoking Tobacco: Never Assessed Sex and Gender Information Value Date Recorded Sex Assigned at Not on file Gender Identity Not on file Sexual Orientation Not on file documented as of this encounter Progress Notes * Allison Alarcon MD - 02/14/2011 1633 EDT INPATIENT REHABILITATION PROGRESS NOTE F002 DATE OF SERVICE: 12/06/2004 DIAGNOSIS: Status post CVA, status post tumor removal. SUBJECTIVE: The patient still having significant periods of time in the evening and during the night when he appears distressed or in pain with wailing. He is not having significantresponse necessaryto codeine. OBJECTIVE: Vital signs remain stable. He continues with unchanged neuro exam left hemiplegia. LABORATORY DATA: BUN 16, sodium 133. ASSESSMENT: A patient with panhypopituitarism after craniopharyngioma resection and CVAs. Discussedwith team and mom several management issues. Reviewed with Dr. Edwards in endocrinology the slightly decreased sodium and he is requesting we decrease the free water flushes. He also would like to see a free T4 and has given how to respond to that level with his Synthroid dose. Dr. Edwards will be out of town as of tomorrow for the next week. As the patient does also seem to be in distress and wail after voiding. We will check a UA/C and S. Reviewed patient's status with Dr. Álvarez. He will be considering an MRI at about three months out from the surgery. Awaiting follow-up consult from service and their recommendations later this afternoon. PLAN: 1. Discontinue amantadine. 2. Start Ritalin give dose today then start him tomorrow morning. 3. Offer Percocet as an alternative to codeine. 4. Will flush the PICC with heparin every day to hopefully decrease clotting off. 5. Check BUN, creatinine, sodium, and free T4 tomorrow. 6. UA/C and S. This document has been electronically signed by ALLISON ALARCON MD on 12/10/2004 09:15:23. - ALLISON ALARCON MD /re Voice ID: [id number] Doc ID: [id number] ir recommendations later this afternoon. PLAN: 1. Discontinue amantadine. 2. Start Ritalin give dose today then start him tomorrow morning. 3. Offer Percocet as an alternative to codeine. 4. Will flush the PICC with heparin every day to hopefully decrease clotting off. 5. Check BUN, creatinine, sodium, and free T4 tomorrow. 6. UA/C and S. - ALLISON ALARCON MD /re Voice ID: [id number] Doc ID: [id number] documented in this encounter Plan of Treatment Upcoming Encounters Date Type Department Care Team (Late st Contact Info) Description 09/09/2024 10:20 EST Office Visit [facility] Endocrinology - [place] [address] [place] [address] Day Littlejohn MD PhD [address] [facility] [address] [place] [address] documented as of this encounter Visit Diagnoses Not on filedocumented in this encounter Care Teams Sap Bods Developer Relationship Specialty Start Date End Date Yan Demarco MD [address] [place] [address] PCP - General 08/22/09 02/20/10 Corin Skinner MD [address] [place] [phone] PCP - General 10/24/08 08/21/09 Akil Serrano MD [address] [facility] [place], [place] [address] PCP - General 02/21/10 04/16/11 documented as of this encounter
--- OUTSIDE RECORDS SUMMARY | 2024-03-05 15:52 | XMS_ITS | Encounter Summary ---
Author Organization [facility] Address [address] [place] [address] Care Team Providers Care Paralegal Assistant Name Role Phone Yan Demarco MD Primary Care Provider Corin Skinner MD Primary Care Provider Akil Serrano MD Primary Care Provider [phone] Encounter Details Date Type Department Care Team (Late st Contact Info) Description 11/21/2004 Before PRISM Converted Visit (Maple) [facility] - Maple conversion [address] [place], [place] [address] Raleigh Angelo MD [address] [phone] Social History Tobacco Use Types Packs/Day Years Used Date Smoking Tobacco: Never Assessed Sex and Gender Information Value Date Recorded Sex Assigned at Not on file Gender Identity Not on file Sexual Orientation Not on file documented as of this encounter Consult Notes * Raleigh Angelo MD - 02/15/2011 1141 EDT ADMISSION DATE: 11/20/2004 DATE OF CONSULTATION: 11/21/2004 HISTORY OF PRESENT ILLNESS: The patient is a 14-year-old male who is now on the rehabilitation center following surgical hospitalization. The patient had an outpatient diagnosis of craniopharyngioma, and, on October 05, 2004, underwent elective transsphenoidal hypophysectomy. He required a follow-up open craniotomy with wider resection. The follow-up operation was marked by significant intraoperative bleeding and further sacrifice of pituitary stalk was required at that time. Postoperatively, the patient required a prolonged period of mechanical ventilation and required broad-based support for panhypopituitarism including treatment of hypothyroidism, hypoadrenalism, and diabetes insipidus. He has been on hydrocortisone, Synthroid, and DDAVP. Over recent days, the patient has shown relatively stable fluid and electrolyte status. They have been monitoring his sodium quite closely. The patient has severe neurologic impairments on the basis of his tumor and subsequent required operation and is now being evaluated for a full rehab program. MEDICATIONS PRESCRIBED UPON ADMISSION TO THE REHAB CENTER: 1. DDAVP 0.15 mg every eight hours by G-tube. 2. Colace 100 mg twice daily. 3. Hydrocortisone 10 mg in the morning and 5 mg in the evening. 4. Synthroid 150 mcg daily. 5. Tylenol as needed. The patient was started on November 21, 2004, on amantadine 100 mg each morning for neurostimulation. Hewas also on additional free water by G-tube. PAST MEDICAL HISTORY: The patient had emotional behavioral issues including school behavior problems, no evidence of previous substance abuse, no known other preexisting medical history. FAMILY HISTORY: Noncontributory. SOCIAL HISTORY: The patient lives withhis mother in [place], [place]. His mother has endstage renal disease and requires three times weekly hemodialysis. REVIEW OF SYSTEMS: The patient is unable to answer any of these questions. PHYSICAL EXAMINATION: Physical examination reveals a young-appearing adolescent male. He is unable to cooperate with questioning. Head reveals evidence of surgery. The patients pupils do not react normally to light. The oropharynx is benign in appearance. Neck veins are not distended. Thyroid is not enlarged. Lung medellin are clear. Cardiac rhythm is regular. The abdomen is soft. Gastrostomy tube in good condition. Liver and spleen not palpably enlarged. No tenderness over the bladder. Approximate Devonte II external genitalia. Lower extremities reveal no adenopathy. I do not detect any spontaneous movement in the left arm and minimal in the left leg. Psychiatric examination was not possible. The patient does have some spontaneous moaning, but no functional speech. Neurologic: With severe weakness, as noted above. ASSESSMENT: 1. Panhypopituitarism with the following features. 2. Diabetes insipidus. 3. Hypoadrenalism. 4. Hypothyroidism. 5. Prior episode of otitis media with clearance following antibiotic coverage. 6. Prerenal azotemia based on elevated BUN to creatinine ratio. 7. Relative hypernatremia with sodium of 146. 8. Severe neurologic impairment. PLAN: 1. Continue, at least for the present, with daily sodium levels. 2. Increase administered free water by gastrostomy tube. 3. Allow free access to water to the extent that the patient can take this. 4. Continue current dose of DDAVP. 5. Continue thyroid hormone replacement. 6. Continue adrenal replacement therapy. 7. I anticipate close care coordination with the physiatric attending team during this patient's stay. Thank you for this consultation. d - 11/22/2004 14:17:40 - RALEIGH ANGELO MD t - 11/22/2004 15:57:53 - re Voice ID - [id number] Document ID - [id number] cc: KYLIE TREJO MD, REQUESTING PHYSICIAN ADE MALLOY MD, REFERRING PHYSICIAN TOO DIAZ MD, PRIMARY CARE PHYSICIAN This document has been electronically signed by RALEIGH ANGELO MD on 11/23/2004 09:21:25. 2. Increase administered free water by gastrostomy tube. 3. Allow free access to water to the extent that the patient can take this. 4. Continue current dose of DDAVP. 5. Continue thyroid hormone replacement. 6. Continue adrenal replacement therapy. 7. I anticipate close care coordination with the physiatric attending team during this patient's stay. Thank you for this consultation. d - 11/22/2004 14:17:40 - RALEIGH ANGELO MD t - 11/22/2004 15:57:53 - re Voice ID - [id number] Document ID - [id number] cc: ADE MALLOY MD, REFERRING PHYSICIAN TOO DIAZ MD, PRIMARY CARE PHYSICIAN KYLIE TREJO MD, REQUESTING PHYSICIAN documented in this encounter Plan of Treatment Upcoming Encounters Date Type Department Care Team (Late st Contact Info) Description 09/09/2024 10:20 EST Office Visit [facility] Endocrinology - [address] [address] Day Littlejohn MD PhD [address] [facility] [address] [place] [address] documented as of this encounter Visit Diagnoses Not on filedocumented in this encounter Care Teams Paralegal Assistant Relationship Specialty Start Date End Date Yan Demarco MD [address] [place] [address] PCP - General 08/22/09 02/20/10 Corin Skinner MD [address] [address] PCP - General 10/24/08 08/21/09 Akil Serrano MD [address] [facility] [address] [place], [place] [address] PCP - General 02/21/10 04/16/11 documented as of this encounter
--- OUTSIDE RECORDS SUMMARY | 2024-03-05 15:52 | XMS_ITS | Encounter Summary ---
Author Organization [facility] Address [address] [place] [address] Care Team Providers Care Manager Trust Name Role Phone Yan Demarco MD Primary Care Provider Corin Skinner MD Primary Care Provider Akil Serrano MD Primary Care Provider [phone] Encounter Details Date Type Department Care Team (Late st Contact Info) Description 11/21/2004 Before PRISM Converted Visit (Maple) [facility] - Maple conversion [address] [place] [address] Kylie Larson MD [address] [place] [address] [address] [place] [address] Social History Tobacco Use Types Packs/Day Years Used Date Smoking Tobacco: Never Assessed Sex and Gender Information Value Date Recorded Sex Assigned at Not on file Gender Identity Not on file Sexual Orientation Not on file documented as of this encounter Progress Notes * Kylie Larson MD - 02/15/2011 1148 EDT INPATIENT REHABILITATION PROGRESS NOTE F002 DATE OF SERVICE: 11/21/2004 The patient is a 14-year-old boy with a history of craniopharyngioma resection with bithalamic infarcts and panhypopituitarism. He was admitted yesterday after a prolonged hospitalization for surgeryand management of electrolyte abnormalities. This morning, his sodium level remains stable in the mid-140s. His fluid status, however, demonstrates that he is slightly dehydrated. I have spoken with Dr. Edwards and adjustments to his fluid boluses and his tube feeds will be made. No problems were reported with the patient overnight. Vital signs are stable, he is afebrile. Chest is clear to auscultation. Heart is regular rate and rhythm. Abdomen is soft, bowel sounds positive. No calf tenderness or edema is noted. He continues tohave elevated tone in his left arm and bilateral lower extremities at the ankles. Neurologically, he continues to be extremely somnolent, but will follow simple commands with his right arm. In summary, the patient is starting his first full day on therapy services. We will start him on amantadine for neurostimulation to try and wake him up a bit. I will review his medical course with Dr. Castañeda, who will be assisting in endocrine and electrolyte management. Iwill continue to keep in touch closely with Dr. Edwards, who will spearheading his endocrine management. Full evaluations will take place today to begin neuro rehab. This document has been electronically signed by KYLIE LARSON MD on 11/24/2004 12:57:24. - KYLIE LARSON MD /re Voice ID: [id number] Doc ID: [id number] eurostimulation to try and wake him up a bit. I will review his medical course with Dr. Castañeda, who will be assisting in endocrine and electrolyte management. I will continue to keep in touch closely with Dr. Edwards, who will spearheading his endocrine management. Full evaluations will take place today to begin neuro rehab. - KYLIE LARSON MD /re Voice ID: [id number] Doc ID: [id number] documented in this encounter Plan of Treatment Upcoming Encounters Date Type Department Care Team (Late st Contact Info) Description 09/09/2024 10:20 EST Office Visit [facility] Endocrinology - [address] [address] Day Littlejohn MD PhD [address] [place] [address] [address] [place] [address] documented as of this encounter Visit Diagnoses Not on filedocumented in this encounter Care Teams Manager Trust Relationship Specialty Start Date End Date Yan Demarco MD [address] [place] [address] PCP - General 08/22/09 02/20/10 Corin Skinner MD [address] [place] [phone] PCP - General 10/24/08 08/21/09 Akil Serrano MD [address] [address] PCP - General 02/21/10 04/16/11 documented as of this encounter
--- OUTSIDE RECORDS SUMMARY | 2024-03-05 15:52 | XMS_ITS | Encounter Summary ---
Author Organization [facility] Address [address] [place] [address] Care Team Providers Care Sales Enablement Manager Name Role Phone Yan Demarco MD Primary Care Provider Corin Skinner MD Primary Care Provider Akil Serrano MD Primary Care Provider [phone] Encounter Details Date Type Department Care Team (Late st Contact Info) Description 11/22/2004 Before PRISM Converted Visit (Maple) [facility] - Maple conversion [address] [place] [address] Kylie Larson MD [address] [place] [address] [address] [place], [place] [id number] Social History Tobacco Use Types Packs/Day Years Used Date Smoking Tobacco: Never Assessed Sex and Gender Information Value Date Recorded Sex Assigned at Not on file Gender Identity Not on file Sexual Orientation Not on file documented as of this encounter Progress Notes * Kylie Larson MD - 02/15/2011 1148 EDT INPATIENT REHABILITATION PROGRESS NOTE F002 DATE OF SERVICE: 11/22/2004 The patient is a 14-year-old with craniopharyngioma resection and bithalamic infarcts with panhypopituitarism. No significant change was noted in starting neurostimulant yesterday. The sodium level remains stable in the mid-140s. BUN is elevated at 30 yesterday and has dropped insignificantly today. Dr. Castañeda was to touch base with Dr. Edwards about adding even more fluid boluses to the patient'sfeeds. No other problems were recorded overnight. Speech and Language Pathology evaluated him and apparently was able to get a bit more interaction with him then I had on previous exams. Vital signs are stable, he is afebrile. Chest is clear, heart is regular. Abdomen is soft, bowel sounds are positive. No calf tenderness or edema is noted. He will withdraw his left upper extremity to noxious stimuli. Otherwise, he tends to just hold this limb motionless. He continues to be irritable with stimulation. Tone in his ankles persists. However, range of motion is still past neutral. In summary, the patient is stable in regards to his endocrine issues. No neurologic changes noted at this point. Dr. Castañeda will add increasing fluid boluses to try and decrease BUN level. He will touch base with Dr. Edwards as necessary. No other medication changes will be made today. He will continue comprehensive therapy services for neurorehabilitation. This document has been electronically signed by KYLIE LARSON MD on 11/24/2004 12:57:30. - KYLIE LARSON MD /re Voice ID: [id number] Doc ID: [id number] ssa. No other medication changes will be made today. He will continue comprehensive therapy services for neurorehabilitation. - KYLIE LARSON MD re Voice ID: [id number] Doc ID: [id number] documented in this encounter Plan of Treatment Upcoming Encounters Date Type Department Care Team (Late st Contact Info) Description 09/09/2024 10:20 EST Office Visit [facility] Endocrinology - [address] [address] Day Littlejohn MD PhD [address] [place] [address] [address] [place] [address] documented as of this encounter Visit Diagnoses Not on filedocumented in this encounter Care Teams Sales Enablement Manager Relationship Specialty Start Date End Date Yan Demarco MD [address] [place] [address] PCP - General 08/22/09 02/20/10 Corin Skinner MD [address] [address] PCP - General 10/24/08 08/21/09 Akil Serrano MD 74 [facility],[address] [id number] PCP - General 02/21/10 04/16/11 documented as of this encounter
--- OUTSIDE RECORDS SUMMARY | 2024-03-05 15:52 | XMS_ITS | Encounter Summary ---
Author Organization [facility] Address [address] [place] [address] Care Team Providers Care Senior Laboratory Technician Name Role Phone Yan Demarco MD Primary Care Provider Corin Skinner MD Primary Care Provider Akil Serrano MD Primary Care Provider [phone] Encounter Details Date Type Department Care Team (Late st Contact Info) Description 11/29/2004 Before PRISM Converted Visit (Maple) [facility] - Maple conversion [address] [place] [address] Allison Alarcon MD [address] [place] [phone] Social History Tobacco Use Types Packs/Day Years Used Date Smoking Tobacco: Never Assessed Sex and Gender Information Value Date Recorded Sex Assigned at Not on file Gender Identity Not on file Sexual Orientation Not on file documented as of this encounter Progress Notes * Allison Alarcon MD - 02/15/2011 1157 EDT INPATIENT REHABILITATION PROGRESS NOTE F002 DATEOF SERVICE: 11/29/2004 DIAGNOSIS: 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 SUBJECTIVE: The patient was noted to have a good afternoon, evening and night with less agitation. Mom was ableto reside in the neighboring room. Staff working intensively with mom and staff to keep patient in a low stimulation, quiet environment. Patient much quieter through the day today. OBJECTIVE: Vital signs are stable. Patient drowses off quickly either during therapies or without stimulation.Verbalization is still only wailing. He is still with no active motion in left upper or lower extremity. Labs: BUN 18, sodium 137. Diagnostics: CT scan of the head completed today showing some continued resolution of edema and still present anterior thalamic infarcts. 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 Question of whether his improved status is related to initiation of Neurontin or just being more consistent with having a low stimulation environment. Ihad discussed with mom proceeding with CT scan, which she agreed with and that was completed, as reported above. Mom has asked that patients primary care physician receive some records from here. Reviewed in the chart what his been sent and what has not so well have his H$T$P sent on to Dr. Drew. Time spent with mom reviewing the plan for placement in a subacute rehab facility which is December, at [facility].Social work has identified there are still a number of issues withapproval of that through Medicaid that need to get clarified. Mom expressing concerns about inability to get there frequently or to watch over him as closely. Social work here is working closely in conjunction with social work who has been involved with the family prior to this admission. That teamwas here visiting today and met with patient, mom, social work, and staff members here. Discussed and reviewed with Dr. Edwards the patients present labs, status. Can decrease frequency of BUN and sodium checking. Reviewed and discussed CT scan results with mom. Plan: 1) Change BUN and sodium checking to every other day. 2) Continue present fluid amounts in. 3) Continue with Neurontin and amantadine. (Additional extended services, conferencing and education with mom and care coordination with staff50 minutes.) This document has been electronically signed by ALLISON ALARCON MD on 11/29/2004 22:47:13. - ALLISON ALARCON MD / Voice ID: [id number] Doc ID: [id number] - ALLISON ALARCON MD / Voice ID: [id number] Doc ID: [id number] documented in this encounter Plan of Treatment Upcoming Encounters Date Type Department Care Team (Late st Contact Info) Description 09/09/2024 10:20 EST Office Visit [facility] Endocrinology - [facility] [address] [place] [address] Day Littlejohn MD PhD [address] [facility] [address] [place] [address] documented as of this encounter Visit Diagnoses Not on filedocumented in this encounter Care Teams Senior Laboratory Technician Relationship Specialty Start Date End Date Yan Demarco MD [address] [place] [address] PCP - General 08/22/09 02/20/10 Corin Skinner MD [address] [place] [phone] PCP - General 10/24/08 08/21/09 Akil Serrano MD [address] [place] [address] [address] [place] [address] PCP - General 02/21/10 04/16/11 documented as of this encounter
--- OUTSIDE RECORDS SUMMARY | 2024-03-05 15:52 | XMS_ITS | Encounter Summary ---
Author Organization [facility] Address [address] [place] [address] Care Team Providers Care Family Practice Doctor Name Role Phone Yan Demarco MD Primary Care Provider Corin Skinner MD Primary Care Provider [phone] Akil Serrano MD Primary Care Provider [phone] Encounter Details Date Type Department Care Team (Late st Contact Info) Description 11/28/2004 Before PRISM Converted Visit (Maple) [facility] - Maple conversion [address] [place] [address] Allison Alarcon MD [address] [place] [phone] Social History Tobacco Use Types Packs/Day Years Used Date Smoking Tobacco: Never Assessed Sex and Gender Information Value Date Recorded Sex Assigned at Not on file Gender Identity Not on file Sexual Orientation Not on file documented as of this encounter Progress Notes * Allison Alarcon MD - 02/15/2011 1144 EDT INPATIENT REHABILITATION PROGRESS NOTE F002 DATE OF SERVICE: 11/28/2004 DIAGNOSIS: Status post bilateral thalamic CVA/panhypopituitarism. SUBJECTIVE: Miguel Angel today is more irritable this morning. He seems fatigued. Therapy has opted to delay the co-treatment sessions until later. The patient did have a bout of very loose, pasty stool noted by nursing after which he seemed to lay more quietly. Mom still having difficultly maintaining a quiet environment in the room at night. Mom is at dialysis today. OBJECTIVE: Heart S1, S2, regular. Lungs are clear. Abdomen is benign. A patient with left hemiplegia, stable. Has intermittent wailing, not calmed easily, quieter after bowel movement. LABORATORY DATA: BUN 19, sodium 134. ASSESSMENT: A patient with marked motor and cognitive deficits status post suprasellar tumor removal with panhypopituitarism and thalamic infarcts. It remains difficult to assess how much the patients restlessness and agitation and wailing have to do with pain. Amantadine has been increased, but this is not resulting in a marked change in his overall status. Questionable whether it has increased his agitation. Neurontin is a reasonable medication to start and trial. PLAN: 1. Will start Neurontin 100 mg bid 2. Re-check BUN and sodium tomorrow. This document has been electronically signed by ALLISON ALARCON MD on 11/29/2004 13:57:39. - ALLISON ALARCON MD /re Voice ID: [id number] Doc ID: [id number] agitation and wailing have to do with pain. Amantadine has been increased, but this is not resulting in a marked change in his overall status. Questionable whether it has increased his agitation. Neurontin is a reasonable medication to start and trial. PLAN: 1. Will start Neurontin 100 mg bid 2. Re-check BUN and sodium tomorrow. - ALLISON ALARCON MD /re Voice ID: [id number] Doc ID: [id number] documented in this encounter Plan of Treatment Upcoming Encounters Date Type Department Care Team (Late st Contact Info) Description 09/09/2024 10:20 EST Office Visit [facility] Endocrinology - [address] [address] Day Littlejohn MD PhD [address] [place] [address] [address] [place] [address] documented as of this encounter Visit Diagnoses Not on filedocumented in this encounter Care Teams Family Practice Doctor Relationship Specialty Start Date End Date Yan Demarco MD [address] [place] [address] PCP - General 08/22/09 02/20/10 Corin Skinner MD [address] [place] [phone] PCP - General 10/24/08 08/21/09 Akil Serrano MD [address] [place] [address] PCP - General 02/21/10 04/16/11 documented as of this encounter
--- OUTSIDE RECORDS SUMMARY | 2024-03-05 15:52 | XMS_ITS | Encounter Summary ---
Author Organization [facility] Address [address] [place] [address] Care Team Providers Care Egg Packer Name Role Phone Yan Demarco MD Primary Care Provider Corin Skinner MD Primary Care Provider Akil Serrano MD Primary Care Provider [phone] Encounter Details Date Type Department Care Team (Late st Contact Info) Description 12/03/2004 Before PRISM Converted Visit (Maple) [facility] - Maple conversion [address] [place] [address] Allison Alarcon MD [address] [place] [phone] Social History Tobacco Use Types Packs/Day Years Used Date Smoking Tobacco: Never Assessed Sex and Gender Information Value Date Recorded Sex Assigned at Not on file Gender Identity Not on file Sexual Orientation Not on file documented as of this encounter Progress Notes * Allison Alarcon MD - 02/15/2011 1201 EDT INPATIENT REHABILITATION PROGRESS NOTE F002 DATE OF SERVICE: 12/03/2004 DIAGNOSIS: Bilateral cerebrovascular accidents. SUBJECTIVE: Patient still having fluctuating times of sleep and then arousal with some wailing. Still reaches for the right ear plus intermittent response to commands. OBJECTIVE: Vital signs are stable. Affect remains either asleep or in somewhat distress. Left upper and lower extremity with no motion. Patient reaching at right ear. Right ear otoscopic exam still showing no identifiable signs of infection. Labs: BUN 17. Sodium 134. ASSESSMENT: Patient with bilateral CVAs with continued marked neurologic deficit. Mom has returned from her time away this weekend. She is working better with team recommendations at trying to keep the patient in a low stimulation environment. Requested an ENT consult for reevaluation of what appears to be right-sided facial or ear pain. Dr. Alejo was involved in the patient's original surgery. Resident for the service saw the patient today. Unfortunately, I did not have a chanceto speak to the mom prior to the resident arriving and she was resistant to the idea of further evaluation. Resident did look at the eardrum, did not see any sign of focal infection and did not see any problems within the oral cavity. Mom did not allowfurther laryngoscopic evaluation at that time. I had a lengthy discussion with the resident around possible options and Dr. Alejo will be coming to review things tomorrow. I did discuss further with the mom the reason for this evaluation and at this point she has become supportive of if there is any input that might alter the patient's apparent level of intermittent discomfort. PLAN: 1. We will discontinue Auralgan drops to the ear. 2. Completion of ENT consult tomorrow. 3. Continue full program. (Forty minutes total time, greater than 50% discussion and counseling with mom aroundthe patient's care and care coordination with team and outside providers.) This document has been electronically signed by ALLISON ALARCON MD on 12/04/2004 10:56:52. - ALLISON ALARCON MD /mt Voice ID: [id number] Doc ID: [id number] patient's care and care coordination with team and outside providers.) - ALLISON ALARCON MD /mt Voice ID: [id number] Doc ID: [id number] documented in this encounter Plan of Treatment Upcoming Encounters Date Type Department Care Team (Late st Contact Info) Description 09/09/2024 10:20 EST Office Visit [facility] Endocrinology - [address] [id number] Day Littlejohn MD PhD [address] [facility] [address] [place] [address] documented as of this encounter Visit Diagnoses Not on filedocumented in this encounter Care Teams Egg Packer Relationship Specialty Start Date End Date Yan Demarco MD [address] [place] [address] PCP - General 08/22/09 02/20/10 Corin Skinner MD [address] [place] [phone] PCP - General 10/24/08 08/21/09 Akil Serrano MD 74 [facility] [address] [place] [address] PCP - General 02/21/10 04/16/11 documented as of this encounter
--- OUTSIDE RECORDS SUMMARY | 2024-03-05 15:52 | XMS_ITS | Encounter Summary ---
Author Organization [facility] Address [address] [place] [address] Care Team Providers Care Weighter Name Role Phone Yan Demarco MD Primary Care Provider Corin Skinner MD Primary Care Provider Akil Serrano MD Primary Care Provider [phone] Encounter Details Date Type Department Care Team (Late st Contact Info) Description 11/20/2004 Before PRISM Converted Visit (Maple) [facility] - Maple conversion [address] [place] [address] Kylie Larson MD [address] [place] [address] [address] [place], [place] [id number] Social History Tobacco Use Types Packs/Day Years Used Date Smoking Tobacco: Never Assessed Sex and Gender Information Value Date Recorded Sex Assigned at Not on file Gender Identity Not on file Sexual Orientation Not on file documented as of this encounter H&P Notes * Kylie Larson MD - 02/14/2011 1623 EDT ADMISSION DATE: 11/20/2004 REASON FOR ADMISSION: . Bithalamic infarcts after craniopharyngioma resection with postoperative panhypopituitarism. HISTORY OF PRESENT ILLNESS: Miguel Angel is a 14-year-old little boy with a history of slow onset visual deficits, history of behavioral problems. 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 He wasadmitted on October 05, 2004, for a transsphenoidal resection. After this first procedure, he apparently did well with no evidence of endocrine issues. When the pathology came back for the type oftumor,he underwent an open craniotomy for extensive resection of the craniopharyngioma. He required 2 units of packed red blood cells intraoperatively for bleeding near the internal carotid artery requiring clip placement. 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 He had a slightly prolonged postoperative pulmonary course, due to the inabilityto protect his own airway. However, this issue has subsequently resolved. Main medical issues have revolved around management of diabetes insipidus. His sodium levels were monitored closely with frequent adjustments to his DDAVP dose. However, over the last week and a half or so, his sodium levels have been stable in the mid 140s. Dr. Michael willcontinue to follow him closely while he is on the rehabilitation service to monitor these issues. I spoke with Dr. Michael on the day of admission who recommended daily sodium levels, as opposed to the three times a day that he had been getting whileonthe pediatric service. He has been maintained on thyroid replacement and steroid replacement as well, which will continue on the rehabilitation service. He, from a neurologic standpoint, has been slow to wake up. He has a left hemiparesis. PT, OT, and speech services had been working with him over on the pediatric service. He had been able to do some supported standing, mainly on the right lower extremity. He had had a splinting protocol for bilateral plantar flexion tone. I reviewed with the possibility of starting a stimulant medication after transitioning to the rehabilitation service. Dr. Michael reviewed those various medication possibilities and found no problems with attempting amantadine or one of the other neurostimulants. Miguel Angel is now transferred to the inpatient rehabilitation service to begin functional recovery efforts, mainly in regard to his stroke. Also, not mentioned above, visual evoked potentials were gotten postoperatively to assess for blindness. 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 PAST MEDICAL HISTORY: Significant for behavioral problems, for which he was followed in the school system. No other previous medical problems were noted. ALLERGIES: No known drug allergies. MEDICATIONS ON ADMISSION: 1. DDAVP 0.15 mg q.8 h. 2. Hydrocortisone to be changed to 10 mg in the morning and 5 mg afternoon and evening. 3. Synthroid 150 mcg q.a.m. 4. Colace twice daily. 5. Tylenol 650 q.4 h., as needed. 6. Osmolite feeds 290 cc via G-tube q.4 h. SOCIAL HISTORY: He has been living with his mother in a one-level home with five steps to enter. She has end-stage renal disease on dialysis. She feels that in his current condition she would be unable to care for him athome. Mariella from social work in the pediatric department has been following along with the case, and alternative living arrangements in another facility have been arranged after acute inpatient rehabilitation stay. FAMILY HISTORY: Noncontributory to this case. REVIEW OF SYSTEMS: Unobtainable from the patient. PHYSICAL EXAM: Vital signs are stable, he was afebrile. Generally, Miguel Angel is a slightly obese young man. He was sleeping in bed. I had some difficulty arousing him.He, when awakened, would not open his eyes spontaneously for me. He was moaning to range of motion activities. HEENT: Craniotomy scars healing well. Eyes: Pupils are dilated and unreactive. He has moist mucous membranes. He has a positive suckle reflex. No jaw jerk is noted. Heart is regular rate and rhythm. Chest is clear to auscultation. Abdomen soft, bowel sounds positive. G-tube site is clean and intact. No calf tenderness or edema is noted. There is a double- lumen catheter in the rightupper extremity. Neurologic exam: Cranialnerves reveal that his face is generally symmetric. Ocular findings are mentioned above. Motor examreveals decreased spontaneous movement of the left side compared to the right side. Miguel Angel will intermittently but inconsistently follow commands to office technologist with the right arm. He will withdraw spontaneously the right lower extremity and right upper extremity. Left upper extremity tends to be flaccidlyat the side, although there was some trace movement with stimulation. Left lower extremity, he partially withdrew to plantar stimulation. Deep tendon reflexes were normoactive and basically symmetric. Babinski was upgoing bilaterally. There is increased tone at the ankles bilaterally with sustainable clonus 5-6 beats. I can get him past neutral at both ankles with prolonged stretch. Modified Elsie score of 3 in the ankles. General alertness is decreased. He tends to moan to stimulation. As above, he will intermittently follow a command to grasp. ASSESSMENT: In summary, Miguel Angel is a 14-year-old very unfortunate boy with previous behavioral problems. Now status post craniopharyngioma resection, panhypopituitarism, bilateral thalamic cerebrovascular accidents, and significant disability. He will now begin comprehensive neurorehabilitation services to try and improve functional ability. Social work will be involved immediately to assist with discharge planning, as he is not being discharged back into his mothers care. His mother will be rooming in with him and will be involved in his care but will not be able to care for him at home after d ischarge. RECOMMENDATIONS: 1. Full evaluations by PT and OT to begin working on mobility and upper extremity activities. 2. Speech-language pathology for both cognitive and swallowing issues. He is currently receiving G-tube feeds but can have ice chips orally. 3. Medical psychology evaluation to assess cognitive leveland interaction. 4. Continue DDAVP for diabetes insipidus. Dr. Michael will be following closely with his daily sodium levels. 5. Continue hydrocortisone for hypoadrenalism and decrease medication dose at Dr. Michael discretion. 6. Continue Levothyroxine for hypothyroidism. 7. Monitor tone and skin; splint accordingly. 8. Dr. Castañeda will be consulted to monitor this complicated patient along with us. - 11/20/2004 13:25:35 - KYLIE LARSON MD t - 11/20/2004 14:46:57 - ss Voice ID- [id number] Document ID - [id number] cc: SUMMER CHRISTIE MD, REFERRING PHYSICIAN ANCELMO MALLOY MD, REFERRING PHYSICIAN Approved by: KYLIE LARSON MD Attending Physician This document has been electronically signed by KYLIE LARSON MD on 11/21/2004 17:25:21. y. 8. Dr. Castañeda will be consulted to monitor this complicated patient along with us. - 11/20/2004 13:25:35 - KYLIE LARSON MD - 11/20/2004 14:46:57 - ss Voice ID - [id number] Document ID - [id number] cc: ADE MALLOY MD, REFERRING PHYSICIAN SUMMER CHRISTIE MD, REFERRING PHYSICIAN ANCELMO MICHAEL MD Approved by: KYLIE LARSON MD Attending Physician documented in this encounter Plan of Treatment Upcoming Encounters Date Type Department Care Team (Late st Contact Info) Description 09/09/2024 10:20 EST Office Visit [facility] Endocrinology - [facility] [address] [place] [address] Day Littlejohn MD PhD [address] [facility] [address] [place] [address] documented as of this encounter Visit Diagnoses Not on filedocumented in this encounter Care Teams Weighter Relationship Specialty Start Date End Date Yan Demarco MD [address] [place] [phone] PCP - General 08/22/09 02/20/10 Corin Skinner MD [address] [place] [phone] PCP - General 10/24/08 08/21/09 Akil Serrano MD 74 [facility] [address] [place] [address] PCP - General 02/21/10 04/16/11 documented as of this encounter
--- OUTSIDE RECORDS SUMMARY | 2024-03-05 15:52 | XMS_ITS | Encounter Summary ---
Author Organization [facility] Address [address] [place] [address] Care Team Providers Care Historiographer Name Role Phone Yan Demarco MD Primary Care Provider [phone] Corin Skinner MD Primary Care Provider [phone] Akil Serrano MD Primary Care Provider [phone] Encounter Details Date Type Department Care Team (Late st Contact Info) Description 12/05/2004 Before PRISM Converted Visit (Maple) [facility] - Maple conversion [address] [place] [address] Allison Alarcon MD [address] [place] [phone] Social History Tobacco Use Types Packs/Day Years Used Date Smoking Tobacco: Never Assessed Sex and Gender Information Value Date Recorded Sex Assigned at Not on file Gender Identity Not on file Sexual Orientation Not on file documented as of this encounter Progress Notes * Allison Alarcon MD - 02/15/2011 1202 EDT INPATIENT REHABILITATION PROGRESS NOTE F002 DATE OF SERVICE: 12/05/2004 DIAGNOSIS: Bilateral thalamic CVAs/panhypopituitarism. The patient was seen and examined today. Vital signs are stable and the patient is afebrile. No newclinical issues were identified, and the patient is to continue in the rehabilitation program. This document has been electronically signed by ALLISON ALARCON MD on 12/05/2004 13:03:37. - ALLISON ALARCON MD /re Voice ID: [id number] Doc ID: [id number] ustrig - ALLISON ALARCON MD /re Voice ID: [id number] Doc ID: [id number] documented in this encounter Plan of Treatment Upcoming Encounters Date Type Department Care Team (Late st Contact Info) Description 09/09/2024 10:20 EST Office Visit [facility] Endocrinology - [facility] [address] [place], [place] [phone] Day Littlejohn MD PhD [address] [facility] [address] [place] [phone] documented as of this encounter Visit Diagnoses Not on filedocumented in this encounter Care Teams Historiographer Relationship Specialty Start Date End Date Yan Demarco MD [address] [place] [address] PCP - General 08/22/09 02/20/10 Corin Skinner MD [address] [place] [phone] PCP - General 10/24/08 08/21/09 Akil Serrano MD 74 [facility] 100 [place], [place] [address] PCP - General 02/21/10 04/16/11 documented as of this encounter
--- OUTSIDE RECORDS SUMMARY | 2024-03-05 15:52 | XMS_ITS | Encounter Summary ---
Author Organization [facility] Address [address] [place] [address] Care Team Providers Care Full Stack Software Developer Name Role Phone Yan Demarco MD Primary Care Provider Corin Skinner MD Primary Care Provider Akil Serrano MD Primary Care Provider [phone] Encounter Details Date Type Department Care Team (Late st Contact Info) Description 12/10/2004 Before PRISM Converted Visit (Maple) [facility] - Maple conversion [address] [place] [address] Allison Alarcon MD [address] [place] [phone] Social History Tobacco Use Types Packs/Day Years Used Date Smoking Tobacco: Never Assessed Sex and Gender Information Value Date Recorded Sex Assigned at Not on file Gender Identity Not on file Sexual Orientation Not on file documented as of this encounter Progress Notes * Allison Alarcon MD - 02/15/2011 1204 EDT INPATIENT REHABILITATION PROGRESS NOTE F002 DATE OF SERVICE: 12/10/2004 DIAGNOSIS: Bilateral CVAs. SUBJECTIVE: The patient is reported as generally being a bit less agitated over the weekend and calmer. He has participated in therapies. He seems to be responding well to the Percocet. OBJECTIVE: Vital signs are stable. The patient sleeping up in chair quietly at this time. Still with marked left hemiparesis. LABORATORY DATA: Culture results from sinus drainage positive for staph coag. Sensitivities available. ASSESSMENT: The patient with bilateral CVAs. Reviewed the culture results with Dr. Alejo from ENT. Although he does not think there is any obstruction in the sinus area, that it was draining well, that there was pus coming from there, and at this point it would be reasonable to try an extended three-week course using Keflex to treat the drainage. He would like to see him after that course of treatment and reassess. States the patient does have a retractive ear drum and states that indicatessome pressure in the ear but generally not necessarily painful. PLAN: 1. Continue with the Ritalin at this point in time. Mom off at dialysis this morning so we will review her sense of the patient's behavioral issues over the weekend tomorrow. 2. Check BUN, sodium, and CBC as ordered. 3. Start Keflex. 4. Continue full program. The patient remains at subacute level. This document has been electronically signed by ALLISON ALARCON MD on 01/07/2005 11:08:08. - ALLISON ALARCON MD /mo Voice ID: [id number] Doc ID: [id number] documented in this encounter Plan of Treatment Upcoming Encounters Date Type Department Care Team (Late st Contact Info) Description 09/09/2024 10:20 EST Office Visit [facility] Endocrinology - [address] [phone] Day Littlejohn MD PhD [address] [place] [address] [address] [place] [phone] documented as of this encounter Visit Diagnoses Not on filedocumented in this encounter Care Teams Full Stack Software Developer Relationship Specialty Start Date End Date Yan Demarco MD [address] [place] [address] PCP - General 08/22/09 02/20/10 Corin Skinner MD [address] [phone] PCP - General 10/24/08 08/21/09 Akil Serrano MD 74 [facility],[address] [phone] PCP - General 02/21/10 04/16/11 documented as of this encounter
--- OUTSIDE RECORDS SUMMARY | 2024-03-05 15:52 | XMS_ITS | Encounter Summary ---
Author Organization [facility] Address [address] [place] [address] Care Team Providers Care Airline Operations Agent Name Role Phone Yan Demarco MD Primary Care Provider [phone] Corin Skinner MD Primary Care Provider [phone] Akil Serrano MD Primary Care Provider [phone] Encounter Details Date Type Department Care Team (Late st Contact Info) Description 11/26/2004 Before PRISM Converted Visit (Maple) [facility] - Maple conversion [address] [place] [address] Allison Alarcon MD [address] [place] [phone] Social History Tobacco Use Types Packs/Day Years Used Date Smoking Tobacco: Never Assessed Sex and Gender Information Value Date Recorded Sex Assigned at Not on file Gender Identity Not on file Sexual Orientation Not on file documented as of this encounter Progress Notes * Allison Alarcon MD - 02/15/2011 1152 EDT INPATIENT REHABILITATION PROGRESS NOTE B005 DATE OF SERVICE: 11/26/2004 DIAGNOSIS: Status post CVA/status craniopharyngioma resection. ASSESSMENT: The patient is a 14-year-old gentleman who has been followed by Dr. Larson and is presently on my service. The patient remained fairly stable over the weekend. He continued to have stretches through the weekend, particularly on Friday when he was more irritable and seemed to be complaining more. OBJECTIVE: Vital signs are stable. Patient has no words but has a wail and a cry and yawn. He is quieter this morning and participating in therapies. He is neurologically blind. He did respond to request to straighten his head, straighten his trunk and turn on and off the radio. At times requires repetition of the command. Has fairly dense left hemiparesis. LABS: BUN 20, sodium 138. 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 The patientclearly has profound deficits but has been showing responses to therapy interventions. Nursing has noted some concerns about moms level of activity and stimulation through the nighttime with turning radios on, TVs on, talking on the phone and adjusting the patients bed. Whether patients verbalizations have to do with pain complaintshas been difficult to asses but will ask speech to try to see if they can establish some consistency as far as yes and no around these kinds of questions. His BUN and sodium are stable and normal at the present time. Water was increased Th, Friday and put on a slightly more restricted status on Friday and Friday. Will continue to check this daily. PLANS: 1. Recheck BUN and sodium tomorrow. 2. Will review patients overall assessment in team rounds tomorrow. This document has been electronically signed by ALLISON ALARCON MD on 11/27/2004 12:05:06. - ALLISON ALARCON MD /ball fringe machine operator Voice ID: [id number] Doc ID: [id number] blish some consistency as far as yes and no around these kinds of questions. His BUN and sodium arestable and normal at the present time. Water was increased , Friday and put on a slightly more restricted status on Friday and Friday. Will continue to check this daily. PLANS: 1. Recheck BUN and sodium tomorrow. 2. Will review patients overall assessment in team rounds tomorrow. - ALLISON ALARCON MD /ball fringe machine operator Voice ID: [id number] Doc ID: [id number] documented in this encounter Plan of Treatment Upcoming Encounters Date Type Department Care Team (Late st Contact Info) Description 09/09/2024 10:20 EST Office Visit [facility] Endocrinology - [facility] [address] [place], [place] [phone] Day Littlejohn MD PhD [address] [facility] [address] [place] [address] documented as of this encounter Visit Diagnoses Not on filedocumented in this encounter Care Teams Airline Operations Agent Relationship Specialty Start Date End Date Yan Demarco MD [address] [place] [address] PCP - General 08/22/09 02/20/10 Corin Skinner MD [address] [place] [phone] PCP - General 10/24/08 08/21/09 Akil Serrano MD [address] [address] PCP - General 02/21/10 04/16/11 documented as of this encounter
--- OUTSIDE RECORDS SUMMARY | 2024-03-05 15:52 | XMS_ITS | Encounter Summary ---
Author Organization [facility] Address [address] [place] [address] Care Team Providers Care Button Facing Machine Operator Name Role Phone Yan Demarco MD Primary Care Provider Corin Skinner MD Primary Care Provider Akil Serrano MD Primary Care Provider [phone] Encounter Details Date Type Department Care Team (Late st Contact Info) Description 11/23/2004 Before PRISM Converted Visit (Maple) [facility] - Maple conversion [address] [place] [address] Kylie Larson MD [address] [place] [address] [address] [place], [place] [phone] Social History Tobacco Use Types Packs/Day Years Used Date Smoking Tobacco: Never Assessed Sex and Gender Information Value Date Recorded Sex Assigned at Not on file Gender Identity Not on file Sexual Orientation Not on file documented as of this encounter Progress Notes * Kylie Larson MD - 02/15/2011 1148 EDT INPATIENT REHABILITATION PROGRESS NOTE F002 DATE OF SERVICE: 11/23/2004 The patient is status post tumor resection with panhypopituitarism and bithalamic infarct. No changes are noted based on amantadine. We will leave this dose stable through the weekend and I will review with Dr. Carlton on Friday whether or not increasing this dose or try another medication would be a ppropriate. BUN has decreased slightly with increased fluid bolus. Sodium level remains stable at 145-147. I was able to have the patient activate a switch for his radio today. This had been setup bySpeech and Language Pathology. Nursing continues to monitor Ins and Outs closely. Physical exam: Vital signs are stable, he is afebrile. Chest is clear, heart is regular. Abdomen issoft, bowel sounds positive. No calf tenderness or edemais noted. Neurologic exam is unchanged. In summary, the patient is stable with panhypopituitarism, bithalamic infarct. Speech and Language Pathology will continue working on increasing social interaction. PT and OT will continue working onmobility and upper extremity activities. We will look to adjust neurostimulant medication sometime in the next few days. We will continue to keep watch on his electrolyte and fluid status. I will keep in contact with Dr. Edwards as necessary. This document has been electronically signed by KYLIE LARSON MD on 11/24/2004 12:57:33. - KYLIE LARSON MD /re Voice ID: [id number] Doc ID: [id number] n the next few days. We will continue to keep watch on his electrolyte and fluid status. I will keep in contact with Dr. Edwards as necessary. - KYLIE LARSON MD /re Voice ID: [id number] Doc ID:[id number] documented in this encounter Plan of Treatment Upcoming Encounters Date Type Department Care Team (Late st Contact Info) Description 09/09/2024 10:20 EST Office Visit [facility] Endocrinology - [address] [phone] Day Littlejohn MD PhD 62 [facility] [address] [place] [address] documented as of this encounter Visit Diagnoses Not on filedocumented in this encounter Care Teams Button Facing Machine Operator Relationship Specialty Start Date End Date Yan Demarco MD [address] [place] [address] PCP - General 08/22/09 02/20/10 Corin Skinner MD [address] [place] [phone] PCP - General 10/24/08 08/21/09 Akil Serrano MD [address] [place] [address] PCP - General 02/21/10 04/16/11 documented as of this encounter
--- OUTSIDE RECORDS SUMMARY | 2024-03-05 15:52 | XMS_ITS | Encounter Summary ---
Author Organization [facility] Address [address] [place] [address] Care Team Providers Care Vat Packer Name Role Phone Yan Demarco MD Primary Care Provider Corin Skinner MD Primary Care Provider Akil Serrano MD Primary Care Provider [phone] Encounter Details Date Type Department Care Team (Late st Contact Info) Description 11/20/2004 Before PRISM Converted Visit (Maple) [facility] - Maple conversion [address] [place] [address] Marvin Gonzalez MD [address] [place] [phone] Social History Tobacco Use Types Packs/Day Years [...] EST Office Visit [facility] Endocrinology - [facility] [address] [place] [address] Dya Littlejohn MD PhD [address] [facility] [address] [place] [address] documented as of this encounter Visit Diagnoses Not on filedocumented in this encounter Care Teams Vat Packer Relationship Specialty Start Date End Date Yan Demarco MD [address] [place] [address] PCP - General 08/22/09 02/20/10 Corin Skinner MD [address] [place] [phone] PCP - General 10/24/08 08/21/09 Akil Serrano MD 74 [facility],[address] [phone] PCP - General 02/21/10 04/16/11 documented as of this encounter
--- OUTSIDE RECORDS SUMMARY | 2024-03-05 15:52 | XMS_ITS | Encounter Summary ---
Author Organization [facility] Address [address] [place] [address] Care Team Providers Care Clutch Assembler Name Role Phone Yan Demarco MD Primary Care Provider [phone] Corin Skinner MD Primary Care Provider Akil Serrano MD Primary Care Provider [phone] Encounter Details Date Type Department Care Team (Late st Contact Info) Description 11/24/2004 Before PRISM Converted Visit (Maple) [facility] - Maple conversion [address] [place] [address] Kylie Larson MD [address] [place] [address] [address] [place] [address] Social History Tobacco Use Types Packs/Day Years Used Date Smoking Tobacco: Never Assessed Sex and Gender Information Value Date Recorded Sex Assigned at Not on file Gender Identity Not on file Sexual Orientation Not on file documented as of this encounter Progress Notes * Kylie Larson MD - 02/15/2011 1148 EDT INPATIENT REHABILITATION PROGRESS NOTE F002 DATE OF SERVICE: 11/24/2004 Miguel Angel is a 14-year-old boy with history of craniopharyngioma resection with bithalamic infarcts andpanhypopituitarism. He has been sleeping the majority of the morning, but then, when waking up, hashad significant irritation and agitation. He has been crying out persistently for about the last hour. We have added Tylenol No. 3 as needed for severe agitation to treat any possible pain that he may be having. His sodium level was 144 this morning and his BUN has continued to fall back downtowards normal range at 22 today. Vitals: He is afebrile, vital signs are stable. Pulse ox 98% on room air. Chest is clear. Heart is regular. He is moving his right side actively. Left side he will move with some cueing. No calf tenderness is noted. He continues to have clonus in his ankles bilaterally. In summary, Miguel Angel is status post craniopharyngioma resection with panhypopituitarism. His diabetes insipidus seems to be under adequate control and his prerenal picture is improving, as well. I am considering treatment for baseline pain management with his bithalamic infarcts. I have some concern that he might have some sort of a central pain syndrome that we are not able to recognize due to his communication deficits. We will leave him on amantadine at the current dose. We will continue to watch his sodiums and his BUN over the next few days. I would like to decrease the frequency of his blood draws sometime in the next few days if this is agreeable to Dr. Edwards. This document has been electronically signed by KYLIE LARSON MD on 11/25/2004 10:25:08. - KYLIE LARSON MD /re Voice ID: [id number] Doc ID: [id number] - KYLIE LARSON MD /re Voice ID: [id number] Doc ID: [id number] documented in this encounter Plan of Treatment Upcoming Encounters Date Type Department Care Team (Late st Contact Info) Description 09/09/2024 10:20 EST Office Visit [facility] Endocrinology - [address] [address] Day Littlejohn MD PhD [address] [place] [address] [address] [place] [address] documented as of this encounter Visit Diagnoses Not on filedocumented in this encounter Care Teams Clutch Assembler Relationship Specialty Start Date End Date Yan Demarco MD [address] [place] [address] PCP - General 08/22/09 02/20/10 Corin Skinner MD [address] [place] [phone] PCP - General 10/24/08 08/21/09 Akil Serrano MD [address] [address] PCP - General 02/21/10 04/16/11 documented as of this encounter
--- OUTSIDE RECORDS SUMMARY | 2024-03-05 15:52 | XMS_ITS | Encounter Summary ---
Author Organization [facility] Address [address] [place] [address] Care Team Providers Care Social Sciences Department Chair Name Role Phone Yan Demarco MD Primary Care Provider Corin Skinner MD Primary Care Provider Akil Serrano MD Primary Care Provider [phone] Encounter Details Date Type Department Care Team (Late st Contact Info) Description 11/27/2004 Before PRISM Converted Visit (Maple) [facility] - Maple conversion [address] [place], [place] [address] Raleigh Angelo MD [address] [phone] Social History Tobacco Use Types Packs/Day Years Used Date Smoking Tobacco: Never Assessed Sex and Gender Information Value Date Recorded Sex Assigned at Not on file Gender Identity Not on file Sexual Orientation Not on file documented as of this encounter Progress Notes * Raleigh Aneglo MD - 02/15/2011 1154 EDT INPATIENT REHABILITATION PROGRESS NOTE F002 DATE OF SERVICE: 11/27/2004 The patient is a 14-year-old boy status post transsphenoidal and then open hypophysectomy. He has panhypopituitarism. He is receiving DDAVP as well as Synthroid and hydrocortisone. Vital signs remain stable; he is afebrile. Regular electrolytes are being monitored. Cardiac rhythmis regular. Lung medellin are clear. Abdomen is soft. JVD is not visible. Assessment/plan: Continue full program activities. Continue monitoring of hydration status, electrolytes, and renal function. This document has been electronically signed by RALEIGH ANGELO MD on 11/28/2004 10:42:40. - RALEIGH ANGELO MD / Voice ID: [id number] Doc ID: [id number] trolytes, and renal function. - ROCKY ANGELO MD / Voice ID: [id number] Doc ID: [id number] documented in this encounter Plan of Treatment Upcoming Encounters Date Type Department Care Team (Late st Contact Info) Description 09/09/2024 10:20 EST Office Visit [facility] Endocrinology - [address] [address] Day Littlejohn MD PhD [address] [place] [address] [address] [place] [address] documented as of this encounter Visit Diagnoses Not on filedocumented in this encounter Care Teams Social Sciences Department Chair Relationship Specialty Start Date End Date Yan Demarco MD [address] [place] [address] PCP - General 08/22/09 02/20/10 Corin Skinner MD [address] [place] [phone] PCP - General 10/24/08 08/21/09 Akil Serrano MD [address] [address] PCP - General 02/21/10 04/16/11 documented as of this encounter
--- OUTSIDE RECORDS SUMMARY | 2024-03-05 15:52 | XMS_ITS | Encounter Summary ---
Author Organization [facility] Address [address] [place] [address] Care Team Providers Care Rotary Operator Name Role Phone Yan Demarco MD Primary Care Provider Corin Skinner MD Primary Care Provider Akil Serrano MD Primary Care Provider [phone] Encounter Details Date Type Department Care Team (Late st Contact Info) Description 11/22/2004 Before PRISM Converted Visit (Maple) [facility] - Maple conversion [address] [place], [place] [address] Raleigh Angelo MD [address] [phone] Social History Tobacco Use Types Packs/Day Years Used Date Smoking Tobacco: Never Assessed Sex and Gender Information Value Date Recorded Sex Assigned at Not on file Gender Identity Not on file Sexual Orientation Not on file documented as of this encounter Progress Notes * Raleigh Angelo MD - 02/15/2011 1149 EDT INPATIENT REHABILITATION PROGRESS NOTE F002 DATE OF SERVICE: 11/22/2004 This young man is a 14-year-old who is recovering from transsphenoidal and later open surgery for pituitary tumor. 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 The patient's sodium has slightly increased to 147. We are increasing his prescribed free water administration. BUN is 28 and creatinine 0.8, giving a BUN to creatinine ratio of 35 to 1. The patient had low-grade temperatureelevation to 38.1 yesterday. Other vital signs are stable. Cardiac rhythm is regular. Lung medellin are clear. Abdomen is soft. JVD is not visible. There is no evidence of erythema of the tympanic membranes. ASSESSMENT AND PLAN: Continue program activities. Increase free water by 200 cc q.i.d. Continue monitoring of electrolytes and renal status. Continue DDAVP, hydrocortisone, and levothyroxine. This document has been electronically signed by RALEIGH ANGELO MD on 11/26/2004 08:09:07. - RALEIGH ANGELO MD /lr Voice ID: [id number] Doc ID: [id number] stright ASSESSMENT AND PLAN: Continue program activities. Increase free water by 200 cc q.i.d. Continue monitoring of electrolytes and renal status. Continue DDAVP, hydrocortisone, and levothyroxine. - RALEIGH ANGELO MD /lr Voice ID: [id number] Doc ID: [id number] documented in this encounter Plan of Treatment Upcoming Encounters Date Type Department Care Team (Late st Contact Info) Description 09/09/2024 10:20 EST Office Visit [facility] Endocrinology - [address] [phone] Day Littlejohn MD PhD [address] [place] [address] [address] [place] [phone] documented as of this encounter Visit Diagnoses Not on filedocumented in this encounter Care Teams Rotary Operator Relationship Specialty Start Date End Date Yan Demarco MD [address] [place] [address] PCP - General 08/22/09 02/20/10 Corin Skinner MD [address] [phone] PCP - General 10/24/08 08/21/09 Akil Serrano MD 74 [facility],[address] [id number] PCP - General 02/21/10 04/16/11 documented as of this encounter
--- OUTSIDE RECORDS SUMMARY | 2024-03-05 15:52 | XMS_ITS | Encounter Summary ---
Author Organization [facility] Address [address] [place] [address] Care Team Providers Care School Resource Officer Name Role Phone Yan Demarco MD Primary Care Provider [phone] Corin Skinner MD Primary Care Provider Akil Serrano MD Primary Care Provider [phone] Encounter Details Date Type Department Care Team (Late st Contact Info) Description 11/29/2004 Before PRISM Converted Visit (Maple) [facility] - Maple conversion [address] [place], [place] [address] Raleigh Angelo MD [address] [phone] Social History Tobacco Use Types Packs/Day Years Used Date Smoking Tobacco: Never Assessed Sex and Gender Information Value Date Recorded Sex Assigned at Not on file Gender Identity Not on file Sexual Orientation Not on file documented as of this encounter Progress Notes * Raleigh Angelo MD - 02/15/2011 1157 EDT INPATIENT REHABILITATION PROGRESS NOTE F002 DATE OF SERVICE: 11/29/2004 Mr. Burgos is a 14-year-old recovering from stroke which is related to surgery for pituitary tumor.He has panhypopituitarism at this time. Sodium is stable at 137. We are reducing frequency of electrolyte and BUN checks to every other day. We had reduced his free water administration after sodiumshad begun to drop. Vital signs are stable at this time. There is no fever present. Cardiac rhythm is regular. Lung medellin are clear. Abdomen is soft. JVD is not visible. ASSESSMENT AND PLAN: 1. Continue full program activities. 2. Continue monitoring electrolytes, now on an every other day schedule. This document has been electronically signed by RALEIGH ANGELO MD on 11/30/2004 08:03:11. - RALEIGH ANGELO MD /re Voice ID: [id number] Doc ID: [id number] oring electrolytes, now on an every other day schedule. - RALEIGH ANGELO MD /re Voice ID: [id number] Doc ID: [id number] documented in this encounter Plan of Treatment Upcoming Encounters Date Type Department Care Team (Late st Contact Info) Description 09/09/2024 10:20 EST Office Visit [facility] Endocrinology - [address] [phone] Day Littlejohn MD PhD [address] [place] [address] [place] [phone] documented as of this encounter Visit Diagnoses Not on filedocumented in this encounter Care Teams School Resource Officer Relationship Specialty Start Date End Date Yan Demarco MD [address] [place] [phone] PCP - General 08/22/09 02/20/10 Corin Skinner MD [address] [place] [phone] PCP - General 10/24/08 08/21/09 Akil Serrano MD [address] [place] [address] PCP - General 02/21/10 04/16/11 documented as of this encounter
--- OUTSIDE RECORDS SUMMARY | 2024-03-05 15:52 | XMS_ITS | Encounter Summary ---
Author Organization [facility] Address [address] [place] [address] Care Team Providers Care Pipe Straightener Name Role Phone Yan Demarco MD Primary Care Provider [phone] Corin Skinner MD Primary Care Provider Akil Serrano MD Primary Care Provider [phone] Encounter Details Date Type Department Care Team (Late st Contact Info) Description 11/26/2004 Before PRISM Converted Visit (Maple) [facility] - Maple conversion [address] [place], [place] [address] Raleigh Angelo MD [address] [phone] Social History Tobacco Use Types Packs/Day Years Used Date Smoking Tobacco: Never Assessed Sex and Gender Information Value Date Recorded Sex Assigned at Not on file Gender Identity Not on file Sexual Orientation Not on file documented as of this encounter Progress Notes * Raleigh Angelo MD - 02/15/2011 1152 EDT INPATIENT REHABILITATION PROGRESS NOTE F002 DATE OF SERVICE: 11/26/2004 The patient is a 14-year-old boy recovering from extensive tumor resection including 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 Problems now include panhypopituitarism. Patient responded to increase in fluid with decrease in BUN and sodium. Detailed discussion with Dr. Larson in this regard. We are reducing supplemental fluids. Last sodium was at 138. We will continue to follow this closely. Vital signs are stable. Patient is afebrile. Cardiac rhythm is regular. Lung medellin are clear. Abdomen is soft. He continues to be nonverbal and with no effective vision at this point. We will continue to monitor electrolyte status. This document has been electronically signed by RALEIGH ANGELO MD on 11/27/2004 13:37:43. - RALEIGH ANGELO MD /mt Voice ID: [id number] Doc ID: [id number] spalpha - RALEIGH ANGELO MD /mt Voice ID: [id number] Doc ID: [id number] documented in this encounter Plan of Treatment Upcoming Encounters Date Type Department Care Team (Late st Contact Info) Description 09/09/2024 10:20 EST Office Visit [facility] Endocrinology - [address] [phone] Day Littlejohn MD PhD [address] [place] [address] [address] [place] [address] documented as of this encounter Visit Diagnoses Not on filedocumented in this encounter Care Teams Pipe Straightener Relationship Specialty Start Date End Date Yan Demarco MD [address] [place] [address] PCP - General 08/22/09 02/20/10 Corin Skinner MD [address] [place] [phone] PCP - General 10/24/08 08/21/09 Akil Serrano MD [address] [place] [address] PCP - General 02/21/10 04/16/11 documented as of this encounter
--- OUTSIDE RECORDS SUMMARY | 2024-03-05 15:54 | XMS_ITS | Encounter Summary ---
Author Organization [facility] Address [address] [place] [address] Care Team Providers Care Executive Chairman Of The Board Name Role Phone Unavailable Primary Care Provider Unavailabl e Encounter Details Date Type Department Care Team (Late st Contact Info) Description 10/05/2004 6:16 EST - 11/20/2004 11:59 EDT Hospital Encounter [facility] [address] [place] [address] Jodi Parr MD [address] [facility], [address] [phone] Hilton Álvarez MD [address] [place] [address] [phone] Discharge Dis[facility] Social History Tobacco Use Types Packs/Day Years Used Date Smoking Tobacco: Never Assessed Sex and Gender Information Value Date Recorded Sex Assigned at Not on file Gender Identity Not on file Sexual Orientation Not on file documented as of this encounter Discharge Summaries * Marvin Gonzalez MD - 11/20/2004 0000 EDT DISCHARGE SUMMARY Admission Date: 10/05/2004 Discharge Date: 11/20/2004 ADMITTING DIAGNOSIS: Craniopharyngioma DISCHARGE DIAGNOSIS: 1. Craniopharyngioma status post resection. 2. Multiple endocrine deficiencies including diabetes insipidus. HISTORY OF PRESENT ILLNESS: This is a 14??-year-old male with a craniopharyngioma status post resection on October 12, 2004 with a complicated hospitalcourse. Please see the complete PICU transfer summary dated November 07, 2004 for details of his immediate postoperative course. He was transferred to [address] on November 07, 2004. HOSPITAL COURSE: . F/E/N: He has been in persistent diabetes insipidus following his transfer to the floor. His urine output was initially measured with a [place] catheter and then most recently by weighing diapers q.4h. His goal urine output is between 150-500 cc or urine q.4h. which represents a CKH of approximately 0.5 to 2.0. He also receives DDAVP 0.15 mg q.8h. (see diabetes insipidus entry below for details).He receives 290 cc of Osmolite feed via his G-tube q.4h., which run over one hour. His weight on admission to the floor was 72 kilos, he was noted to have lost some weight on November 17, 2004 with a weight of 70.3 kilograms and discharge weight is pending at the time of this dictation. He did suffer some constipation during his hospital stay which resolved with Colace and p.r.n. MiraLax. . Infectious diseaseHe was diagnosed with an otitis media and externa on November 08, 2004 and started onAugmentin at that time as well as Auralgan ear drops for pain control and Cortisporin ear drops. These medicines were continued until November 18, 2004 with complete resolution of the infection at which time they were discontinued. Additionally, he had been diagnosed in the PICU with a urinary tract infection of > 100,000 Staph Aureus which was pansensitive and initially treated with Keflex. The Keflex was discontinued once sensitivities were known, since the organism was also sensitive to Augmentin. . Diabetes insipidus: He has been receiving 0.15 mg of DDAVP (desmopressin) q.8h. at 0600, 1400 [id number] via his G-tube. His sodiums originally were measured three times per day and most recently nowtwice per day at 8:00 am at 20:00. His sodiums over the past several days have been stable, rangingbetween 136 and 147 on that dose of DDAVP with no additional fluids other than tube feeds and minima l flushes for medicines. His most recent serum sodium was measured on the morning of discharge, 2004, at 145 mEq per liter. He is being followed closely by pediatric endocrinology. Additionally, urine output is being estimated as previously stated by q.4h. diaper weights. . Hypothyroidism: He continues to take Synthroid 150 mcg q a.m. and should have a free T4 recheckedon November 26, 2004. . Adrenal insufficiency: He has been receiving 15 mg of hydrocortisone in the morning, 10 mg of hydrocortisone at noon and 10 mg of hydrocortisone in the evening. This represents approximately a two-times maintenance dosing for him during this hospitalization, after the immediate postoperative period. At this time, it is appropriate to decrease his dose to a maintenance dose of 10 mg in the morning, 5 mg at noon and 5 mg in the evening, which should begin on November 21, 2004. If he were to develop fever or to undergo additional stress such as surgery, he would need an increase again in his hydrocortisone dose and pediatric endocrinology should be consulted if this were to arise. . Neurologic impairmentThe patient has been slow to recover following the resection of his craniopharyngioma and has been see by occupational therapy, physical therapy, physiatry and speech language pathology during his recovery. He has also been seen by pediatric neurology and followed continuously by pediatric neurosurgery. On November 15, 2004, he had visual evoked potentials done which revealed noretinal deficits but deficient transmission of signal to the cerebral cortex. It is recommended that he have a neuro-ophthalmology outpatient evaluation for further testing to determine his visual acuity. Neurologic irritability has been a significant issue for the patient. Specifically in discerning whether or not his irritability is from pain, since he seemed to experience significant pain withhis otitis media and externa. Since this infection is now resolved, much of his moaning seems to bemore related to this level of irritability. The patient was discharged to rehabilitation on the following medications. MEDICATIONS 1. Acetaminophen solution 650 mg per G tube every four hours PRN. 2. DDAVP (desmopressin) 0.15 mg via G tube every eight hours. 3. Docusate 100 mg per G tube twice daily. 4. Hydrocortisone 15 mg per G tube every morning, 10 mg per G tube every midday and evening. 5. Levothyroxine 150 mcg per G tube every morning. Signed by Jodi Parr MD 02/20/2005 07:31 Gurdeep Janeael Carlos, [facility] Parr MD Dictated by: Marvin Gonzalez MD Jodi Parr MD - Marvin Gonzalez MD - chelle Job ID: [id number] Document ID: [id number] Re-created from ExText 01/24/2005 cc: MD Too Mccauley MD Michael Seaton, MD Christa M Zehle, MD Paul James Zimakas, MD Paul James Zimakas, MD * Marvin Gonzalez MD - 11/20/2004 0000 EDT DISCHARGE SUMMARY Admission Date: 10/05/2004 Discharge Date: 11/20/2004 ADMITTING DIAGNOSIS: Craniopharyngioma DISCHARGE DIAGNOSIS: 1. Craniopharyngioma status post resection. 2. Multiple endocrine deficiencies including diabetes insipidus. HISTORY OF PRESENT ILLNESS: This is a 14??-year-old male with a craniopharyngioma status post resection on October 12, 2004 with a complicated hospital course. Please see the complete PICU transfer summary dated November 07, 2004 for details of his immediate postoperative course. He was transferred to [address] [facility] floor on November 07, 2004. HOSPITAL COURSE: . F/E/N: He has been in persistent diabetes insipidus following his transfer to the floor. His urine output was initially measured with a [place] catheter and then most recently byweighing diapers q.4h. His goal urine output is between 150-500 cc or urine q.4h. which represents a CKH of approximately0.5 to 2.0. He also receives DDAVP 0.15 mg q.8h. (see diabetes insipidus entry below for details). He receives 290 cc of Osmolite feed via his G-tube q.4h., which run over one hour. His weight on admission to the floor was 72 kilos, he was noted to have lost some weight on November 17, 2004 with a weight of 70.3 kilograms and discharge weight is pending at the time of this dictation. He did suffer some constipation during his hospital stay which resolved with Colace and p.r.n. MiraLax. . Infectious disease: He was diagnosed with an otitis media and externa on November 08, 2004 and started on Augmentin at that time as well as Auralgan ear drops for paincontrol and Cortisporin ear drops. These medicines were continued until November 18, 2004 with complete resolution of the infection at which time they were discontinued. Additionally, he had been diagnosed in the PICU with a urinary tract infection of > 100,000 Staph Aureus which was pansensitive and initially treated with Keflex. The Keflex was discontinued once sensitivities were known, since the organism was also sensitive to Augmentin. . Diabetes insipidus: He has been receiving 0.15 mg of DDAVP (desmopressin) q.8h. at 0600, 1400 [id number] via his G-tube. His sodiums originally were measured three times per day and most recently nowtwice per day at 8:00 am at 20:00. His sodiums over the past several days have been stable, rangingbetween 136 and 147 on that dose of DDAVP, with no additional fluids other than tube feeds and minim al flushes for medicines. His most recent serum sodium was measured on the morning of discharge, November 20, 2004, at 145 mEq per liter. He is being followed closely by pediatric endocrinology. Additionally, urine output is being estimated as previously stated by q.4h. diaper weights. . Hypothyroidism: He continues to take Synthroid 150 mcg q a.m. and should have a free T4 recheckedon November 26, 2004. . Adrenal insufficiency: He has been receiving 15 mg of hydrocortisone in the morning, 10 mg of hydrocortisone at noon and 10 mg of hydrocortisone in the evening. This represents approximately a two-times maintenance dosing for him during this hospitalization, after the immediate postoperative period. At this time, it is appropriate to decrease his dose to a maintenance dose of 10 mg in the morning, 5 mg at noon and 5 mg in the evening, which should begin on November 21, 2004. If he were to develop fever or to undergo additional stress such as surgery, he would need an increase again in his hydrocortisone dose and pediatric endocrinology should be consulted if this were to arise. . Neurologic impairment: The patient has been slow to recover following the resection of his craniopharyngioma and has been see by occupational therapy, physical therapy, physiatry and speech language pathology during his recovery. He has also been seen by pediatric neurology and followed continuously by pediatric neurosurgery. On November 15, 2004, he had visual evoked potentials done which revealed no retinal deficits but deficient transmission of signal to the cerebral cortex. It is recommended that he have a neuro-ophthalmology outpatient evaluation for further testing to determine his visual acuity. Neurologic irritability has been a significant issue for the patient. Specifically in discerning whether or not his irritability is from pain, since he seemed to experience significant pain with his otitis media and externa. Since this infection is now resolved, much of his moaning seems to be more related to this level of irritability. The patient was discharged to rehabilitation on the following medications. MEDICATIONS . Acetaminophen solution 650 mg per G tube every four hours PRN. . DDAVP (desmopressin) 0.15 mg via G tube every eight hours. . Docusate 100 mg per G tube twice daily. . Hydrocortisone 15 mg per G tube every morning, 10 mg per G tube every midday and evening. . Levothyroxine 150 mcg per G tube every morning. Signed by Jodi Parr MD 02/20/2005 07:31 Enriqueta Jane MDChrista M Zehle, MD Dictated by: Marvin Gonzalez MD Jodi Parr MD - Marvin Gonzalez MD - chelle Job ID: [id number] Document ID: [id number] Re-created in [employer] 01/29/2005 cc: MD Marvin Ross MD Christa M Zehle, MD Paul James Zimakas, MD documented in this encounter Discharge Disposition Disposition Code Departure Means Destination [facility] documented in this encounter Plan of Treatment Upcoming Encounters Date Type Department Care Team (Late st Contact Info) Description 09/09/2024 10:20 EST Office Visit [facility] [address] [place] [address] Day Littlejohn MD PhD [address] [place] [phone] documented as of this encounter Procedures Procedure Name Priority Date/Time Associated Diagnosis Comments SODIUM Routine 11/20/2004 7:55 EDT SODIUM Routine 11/19/2004 20:05 EDT SODIUM Routine 11/19/2004 8:00 EDT SODIUM Routine 11/18/2004 20:00 EDT SODIUM Routine 11/18/2004 14:00 EDT SODIUM Routine 11/18/2004 8:00 EDT SODIUM Routine 11/17/2004 20:15 EDT SODIUM Routine 11/17/2004 12:00 EDT SODIUM Routine 11/17/2004 4:00 EDT SODIUM Routine 11/16/2004 19:45 EDT SODIUM Routine 11/16/2004 11:30 EDT SODIUM Routine 11/16/2004 3:45 EDT SODIUM Routine 11/15/2004 19:45 EDT SODIUM Routine 11/15/2004 12:00 EDT SODIUM Routine 11/15/2004 4:45 EDT SODIUM Routine 11/14/2004 20:00 EDT SODIUM Routine 11/14/2004 11:35 EDT SODIUM Routine 11/14/2004 4:00 EDT SODIUM Routine 11/13/2004 20:00 EDT SODIUM Routine 11/13/2004 20:00 EDT SODIUM Routine 11/13/2004 11:55 EDT SODIUM Routine 11/13/2004 4:02 EDT SODIUM Routine 11/12/2004 19:50 EDT SODIUM Routine 11/12/2004 11:55 EDT PREALBUMIN Routine 11/12/2004 11:55 EDT PHOSPHORUS Routine 11/12/2004 11:55 EDT MAGNESIUM Routine 11/12/2004 11:55 EDT T4 FREE Routine 11/12/2004 4:00 EDT SODIUM Routine 11/12/2004 4:00 EDT PHOSPHORUS Routine 11/12/2004 4:00 EDT MAGNESIUM Routine 11/12/2004 4:00 EDT CALCIUM Routine 11/12/2004 4:00 EDT ALBUMIN Routine 11/12/2004 4:00 EDT SODIUM Routine 11/11/2004 20:08 EDT SODIUM Routine 11/11/2004 12:00 EDT SODIUM Routine 11/11/2004 4:00 EDT SODIUM Routine 11/10/2004 20:45 EDT SODIUM Routine 11/10/2004 11:55 EDT SODIUM Routine 11/10/2004 3:45 EDT SODIUM Routine 11/09/2004 20:00 EDT SODIUM Routine 11/09/2004 13:20 EDT SODIUM Routine 11/09/2004 4:20 EDT SODIUM Routine 11/08/2004 19:55 EDT SODIUM Routine 11/08/2004 17:00 EDT SODIUM Routine 11/08/2004 12:15 EDT SODIUM Routine 11/08/2004 4:00 EDT SODIUM Routine 11/07/2004 20:29 EDT SODIUM Routine 11/07/2004 12:24 EDT SODIUM Routine 11/07/2004 6:25 EDT SODIUM Routine 11/06/2004 22:00 EDT SODIUM Routine 11/06/2004 13:58 EDT ELECTROLYTES Routine 11/06/2004 9:56 EDT ELECTROLYTES Routine 11/06/2004 3:22 EDT ELECTROLYTES Routine 11/05/2004 20:[address] HEAD W/WO CONTRAST Routine 11/05/2004 19:02 EDT ELECTROLYTES Routine 11/05/2004 12:30 EDT T4 FREE Routine 11/05/2004 4:34 EDT SODIUM Routine 11/05/2004 4:34 EDT ELECTROLYTES Routine 11/05/2004 4:34 EDT ELECTROLYTES Routine 11/04/2004 22:06 EDT ELECTROLYTES Routine 11/04/2004 14:25 EDT SODIUM Routine 11/04/2004 8:25 EDT ELECTROLYTES Routine 11/04/2004 4:15 EDT SODIUM Routine 11/04/2004 0:31 EDT ELECTROLYTES Routine 11/03/2004 20:16 EDT SODIUM Routine 11/03/2004 16:15 EDT ELECTROLYTES Routine 11/03/2004 12:21 EDT SODIUM Routine 11/03/2004 9:30 EDT ELECTROLYTES Routine 11/03/2004 3:00 EDT SODIUM Routine 11/03/2004 0:14 EDT ELECTROLYTES Routine 11/02/2004 20:02 EDT SODIUM Routine 11/02/2004 16:34 EDT ELECTROLYTES Routine 11/02/2004 12:32 EDT COMPLETE BLOOD COUNT Routine 11/02/2004 8:39 EDT SODIUM Routine 11/02/2004 8:39 EDT BACTERIAL CULTURE, BLOOD Routine 11/02/2004 5:45 EDT URINE CULTURE IF POSITIVE Routine 11/02/2004 5:43 EDT URINE CHEMICAL (DIP) & SEDIMENT (MICRO) WITHOUT REFLEX TO CULTURE Routine 11/02/2004 5:43 EDT BACTERIAL CULTURE, URINE Routine 11/02/2004 5:43 EDT ELECTROLYTES Routine 11/02/2004 4:10 EDT SODIUM Routine 11/02/2004 0:09 EDT ELECTROLYTES Routine 11/01/2004 20:00 EDT SODIUM Routine 11/01/2004 16:19 EDT TESTS ADDED BY PHONE Routine 11/01/2004 12:28 EDT SODIUM Routine 11/01/2004 12:28 EDT POTASSIUM Routine 11/01/2004 12:28 EDT CHLORIDE Routine 11/01/2004 12:28 EDT CO2 Routine 11/01/2004 12:28 EDT SODIUM Routine 11/01/2004 8:26 EDT PHENYTOIN Routine 11/01/2004 4:18 EDT ELECTROLYTES Routine 11/01/2004 4:18 EDT SODIUM Routine 11/01/2004 2:27 EDT ELECTROLYTES Routine 11/01/2004 0:10 EDT SODIUM Routine 10/31/2004 18:48 EDT SODIUM Routine 10/31/2004 16:29 EDT ELECTROLYTES Routine 10/31/2004 12:08 EDT SODIUM Routine 10/31/2004 8:18 EDT SODIUM, URINE RANDOM Routine 10/31/2004 6:28 EDT OSMOLALITY, URINE Routine 10/31/2004 6:2 8 EDT OSMOLALITY Routine 10/31/2004 6:26 EDT SODIUM Routine 10/31/2004 6:26 EDT COMPLETE BLOOD COUNT AND DIFFERENTIAL Routine 10/31/2004 4:18 EDT ELECTROLYTES Routine 10/31/2004 4:18 EDT ELECTROLYTES Routine 10/30/2004 20:33 EDT SODIUM Routine 10/30/2004 16:02 EDT ELECTROLYTES Routine 10/30/2004 12:09 EDT SODIUM Routine 10/30/2004 10:28 EDT COMPLETE BLOOD COUNT AND DIFFERENTIAL Routine 10/30/2004 4:13 EDT PHENYTOIN Routine 10/30/2004 4:13 EDT ELECTROLYTES Routine 10/30/2004 4:13 EDT ELECTROLYTES Routine 10/30/2004 0:11 EDT SODIUM Routine 10/30/2004 0:04 EDT SODIUM Routine 10/29/2004 22:00 EDT ELECTROLYTES Routine 10/29/2004 18:14 EDT ELECTROLYTES Routine 10/29/2004 16:19 EDT SODIUM Routine 10/29/2004 12:59 EDT ELECTROLYTES Routine 10/29/2004 8:16 EDT COMPLETE BLOOD COUNT AND DIFFERENTIAL Routine 10/29/2004 4:11 EDT T4 FREE Routine 10/29/2004 4:11 EDT SODIUM Routine 10/29/2004 4:11 EDT SODIUM Routine 10/29/2004 4:00 EDT ELECTROLYTES Routine 10/29/2004 0:06 EDT SODIUM Routine 10/28/2004 20:20 EDT ELECTROLYTES Routine 10/28/2004 16:32 EDT SODIUM Routine 10/28/2004 12:21 EDT ELECTROLYTES Routine 10/28/2004 8:53 EDT CREATININE Routine 10/28/2004 4:41 EDT COMPLETE BLOOD COUNT AND DIFFERENTIAL Routine 10/28/2004 4:41 EDT PHENYTOIN Routine 10/28/2004 4:41 EDT BUN Routine 10/28/2004 4:41 EDT ELECTROLYTES Routine 10/28/2004 4:41 EDT ELECTROLYTES Routine 10/28/2004 0:20 EDT SODIUM Routine 10/27/2004 20:52 EDT ELECTROLYTES Routine 10/27/2004 16:02 EDT SODIUM Routine 10/27/2004 12:49 EDT ELECTROLYTES Routine 10/27/2004 8:21 EDT CREATININE Routine 10/27/2004 4:18 EDT COMPLETE BLOOD COUNT AND DIFFERENTIAL Routine 10/27/2004 4:18 EDT PHENYTOIN Routine 10/27/2004 4:18 EDT BUN Routine 10/27/2004 4:18 EDT SODIUM Routine 10/27/2004 4:18 EDT ELECTROLYTES Routine 10/27/2004 2:28 EDT SODIUM Routine 10/26/2004 20:40 EDT ELECTROLYTES Routine 10/26/2004 16:01 EDT SODIUM Routine 10/26/2004 12:39 EDT MAGNESIUM Routine 10/26/2004 8:05 EDT ELECTROLYTES Routine 10/26/2004 8:05 EDT CREATININE Routine 10/26/2004 3:53 EDT COMPLETE BLOOD COUNT AND DIFFERENTIAL Routine 10/26/2004 3:53 EDT PHENYTOIN Routine 10/26/2004 3:53 EDT BUN Routine 10/26/2004 3:53 EDT SODIUM Routine 10/26/2004 3:53 EDT ELECTROLYTES Routine 10/26/2004 0:15 EDT SODIUM Routine 10/25/2004 20:41 EDT ELECTROLYTES Routine 10/25/2004 17:25 EDT SODIUM Routine 10/25/2004 12:15 EDT ELECTROLYTES Routine 10/25/2004 8:30 EDT CREATININE Routine 10/25/2004 4:13 EDT COMPLETE BLOOD COUNT AND DIFFERENTIAL Routine 10/25/2004 4:13 EDT PHENYTOIN Routine 10/25/2004 4:13 EDT BUN Routine 10/25/2004 4:13 EDT ALT Routine 10/25/2004 4:13 EDT AST Routine 10/25/2004 4:13 EDT PHOSPHORUS Routine 10/25/2004 4:13 EDT ALKALINE PHOSPHATASE Routine 10/25/2004 4:13 EDT MAGNESIUM Routine 10/25/2004 4:13 EDT CALCIUM Routine 10/25/2004 4:13 EDT BILIRUBIN, TOTAL Routine 10/25/2004 4:13 EDT ELECTROLYTES Routine 10/25/2004 4:13 EDT ELECTROLYTES Routine 10/25/2004 0:07 EDT SODIUM Routine 10/24/2004 20:14 EDT PHOSPHORUS Routine 10/24/2004 16:01 EDT ELECTROLYTES Routine 10/24/2004 16:01 EDT SODIUM Routine 10/24/2004 12:05 EDT ELECTROLYTES Routine 10/24/2004 10:36 EDT SODIUM Routine 10/24/2004 8:01 EDT SODIUM Routine 10/24/2004 6:07 EDT ELECTROLYTES Routine 10/24/2004 6:07 EDT CREATININE Routine 10/24/2004 4:07 EDT COMPLETE BLOOD COUNT AND DIFFERENTIAL Routine 10/24/2004 4:07 EDT PHENYTOIN Routine 10/24/2004 4:07 EDT BUN Routine 10/24/2004 4:07 EDT SODIUM Routine 10/24/2004 4:07 EDT ELECTROLYTES Routine 10/24/2004 2:23 EDT SODIUM Routine 10/24/2004 2:12 EDT SODIUM Routine 10/24/2004 0:47 EDT GLUCOSE, GLUCOMETER Routine 10/24/2004 0 :12 EDT ELECTROLYTES Routine 10/23/2004 22:07 EDT SODIUM Routine 10/23/2004 20:02 EDT ELECTROLYTES Routine 10/23/2004 17:[address] HEAD WO CONTRAST Routine 10/23/2004 1 5:29 EDT PHENYTOIN Routine 10/23/2004 14:07 EDT SODIUM Routine 10/23/2004 14:07 EDT ELECTROLYTES Routine 10/23/2004 11:54 EDT SODIUM Routine 10/23/2004 10:00 EDT ELECTROLYTES Routine 10/23/2004 7:51 EDT SODIUM Routine 10/23/2004 6:00 EDT CREATININE Routine 10/23/2004 4:00 EDT COMPLETE BLOOD COUNT AND DIFFERENTIAL Routine 10/23/2004 4:00 EDT BUN Routine 10/23/2004 4:00 EDT ELECTROLYTES Routine 10/23/2004 4:00 EDT SODIUM Routine 10/23/2004 2:00 EDT ELECTROLYTES Routine 10/23/2004 0:00 EDT SODIUM Routine 10/22/2004 21:59 EDT ELECTROLYTES Routine 10/22/2004 20:23 EDT SODIUM Routine 10/22/2004 18:05 EDT ELECTROLYTES Routine 10/22/2004 16:40 EDT TRIGLYCERIDE Routine 10/22/2004 14:10 EDT SODIUM Routine 10/22/2004 14:10 EDT SODIUM, URINE RANDOM Routine 10/22/2004 12:50 EDT OSMOLALITY, URINE Routine 10/22/2004 12: 50 EDT GLUCOSE, GLUCOMETER Routine 10/22/2004 1 2:16 EDT TESTS ADDED BY PHONE Routine 10/22/2004 12:05 EDT T4 FREE Routine 10/22/2004 12:05 EDT T4 FREE Routine 10/22/2004 12:05 EDT ELECTROLYTES Routine 10/22/2004 12:05 EDT SODIUM Routine 10/22/2004 10:00 EDT TESTS ADDED BY PHONE Routine 10/22/2004 8:10 EDT T4 FREE Routine 10/22/2004 8:10 EDT ELECTROLYTES Routine 10/22/2004 8:10 EDT SODIUM Routine 10/22/2004 6:05 EDT CREATININE Routine 10/22/2004 4:15 EDT COMPLETE BLOOD COUNT AND DIFFERENTIAL Routine 10/22/2004 4:15 EDT BUN Routine 10/22/2004 4:15 EDT ALT Routine 10/22/2004 4:15 EDT AST Routine 10/22/2004 4:15 EDT PHOSPHORUS Routine 10/22/2004 4:15 EDT ALKALINE PHOSPHATASE Routine 10/22/2004 4:15 EDT MAGNESIUM Routine 10/22/2004 4:15 EDT GLUCOSE, SERUM Routine 10/22/2004 4:15 EDT CALCIUM Routine 10/22/2004 4:15 EDT BILIRUBIN, TOTAL Routine 10/22/2004 4:15 EDT ELECTROLYTES Routine 10/22/2004 4:15 EDT SODIUM Routine 10/22/2004 1:58 EDT ELECTROLYTES Routine 10/22/2004 0:05 EDT GLUCOSE, GLUCOMETER Routine 10/22/2004 0 :01 EDT SODIUM Routine 10/21/2004 22:04 EDT GLUCOSE, GLUCOMETER Routine 10/21/2004 2 1:59 EDT ELECTROLYTES Routine 10/21/2004 19:46 EDT GLUCOSE, GLUCOMETER Routine 10/21/2004 1 8:19 EDT SODIUM Routine 10/21/2004 18:18 EDT ELECTROLYTES Routine 10/21/2004 15:58 EDT SODIUM Routine 10/21/2004 14:13 EDT GLUCOSE, GLUCOMETER Routine 10/21/2004 1 4:07 EDT ELECTROLYTES Routine 10/21/2004 12:00 EDT SODIUM Routine 10/21/2004 10:00 EDT GLUCOSE, GLUCOMETER Routine 10/21/2004 8 :10 EDT ELECTROLYTES Routine 10/21/2004 8:00 EDT SODIUM Routine 10/21/2004 6:05 EDT CREATININE Routine 10/21/2004 4:06 EDT GLUCOSE, GLUCOMETER Routine 10/21/2004 4 :06 EDT COMPLETE BLOOD COUNT AND DIFFERENTIAL Routine 10/21/2004 4:06 EDT BUN Routine 10/21/2004 4:06 EDT ELECTROLYTES Routine 10/21/2004 4:06 EDT SODIUM Routine 10/21/2004 2:01 EDT SODIUM Routine 10/20/2004 22:07 EDT GLUCOSE, GLUCOMETER Routine 10/20/2004 2 2:00 EDT ELECTROLYTES Routine 10/20/2004 20:08 EDT GLUCOSE, GLUCOMETER Routine 10/20/2004 2 0:05 EDT SODIUM Routine 10/20/2004 18:00 EDT ELECTROLYTES Routine 10/20/2004 16:00 EDT SODIUM Routine 10/20/2004 14:00 EDT ELECTROLYTES Routine 10/20/2004 12:42 EDT SODIUM Routine 10/20/2004 10:00 EDT ELECTROLYTES Routine 10/20/2004 8:21 EDT SODIUM Routine 10/20/2004 6:06 EDT CREATININE Routine 10/20/2004 4:00 EDT COMPLETE BLOOD COUNT AND DIFFERENTIAL Routine 10/20/2004 4:00 EDT TOTAL & DIRECT BILIRUBIN Routine 10/20/2004 4:00 EDT BUN Routine 10/20/2004 4:00 EDT ALT Routine 10/20/2004 4:00 EDT AST Routine 10/20/2004 4:00 EDT PHOSPHORUS Routine 10/20/2004 4:00 EDT ALKALINE PHOSPHATASE Routine 10/20/2004 4:00 EDT MAGNESIUM Routine 10/20/2004 4:00 EDT CALCIUM Routine 10/20/2004 4:00 EDT BILIRUBIN, TOTAL Routine 10/20/2004 4:00 EDT ELECTROLYTES Routine 10/20/2004 4:00 EDT GLUCOSE, GLUCOMETER Routine 10/20/2004 3 :53 EDT SODIUM Routine 10/20/2004 2:07 EDT ELECTROLYTES Routine 10/20/2004 0:08 EDT ELECTROLYTES Routine 10/20/2004 0:04 EDT GLUCOSE, GLUCOMETER Routine 10/20/2004 0 :02 EDT SODIUM Routine 10/19/2004 22:12 EDT ELECTROLYTES Routine 10/19/2004 20:00 EDT GLUCOSE, GLUCOMETER Routine 10/19/2004 1 9:55 EDT SODIUM Routine 10/19/2004 18:27 EDT GLUCOSE, SERUM Routine 10/19/2004 16:52 EDT ELECTROLYTES Routine 10/19/2004 16:52 EDT SODIUM Routine 10/19/2004 14:25 EDT ELECTROLYTES Routine 10/19/2004 12:09 EDT SODIUM Routine 10/19/2004 10:17 EDT ELECTROLYTES Routine 10/19/2004 8:20 EDT SODIUM, URINE RANDOM Routine 10/19/2004 6:54 EDT OSMOLALITY, URINE Routine 10/19/2004 6:5 4 EDT OSMOLALITY Routine 10/19/2004 6:21 EDT GLUCOSE, SERUM Routine 10/19/2004 6:21 EDT ELECTROLYTES Routine 10/19/2004 6:21 EDT GLUCOSE, SERUM Routine 10/19/2004 4:25 EDT ELECTROLYTES Routine 10/19/2004 4:25 EDT CREATININE Routine 10/19/2004 2:10 EDT COMPLETE BLOOD COUNT AND DIFFERENTIAL Routine 10/19/2004 2:10 EDT TOTAL & DIRECT BILIRUBIN Routine 10/19/2004 2:10 EDT BUN Routine 10/19/2004 2:10 EDT ALT Routine 10/19/2004 2:10 EDT AST Routine 10/19/2004 2:10 EDT PHOSPHORUS Routine 10/19/2004 2:10 EDT ALKALINE PHOSPHATASE Routine 10/19/2004 2:10 EDT MAGNESIUM Routine 10/19/2004 2:10 EDT CALCIUM Routine 10/19/2004 2:10 EDT ELECTROLYTES Routine 10/19/2004 2:10 EDT ELECTROLYTES Routine 10/19/2004 0:12 EDT SODIUM Routine 10/18/2004 22:11 EDT ELECTROLYTES Routine 10/18/2004 20:13 EDT GLUCOSE, GLUCOMETER Routine 10/18/2004 2 0:06 EDT SODIUM Routine 10/18/2004 18:15 EDT ELECTROLYTES Routine 10/18/2004 16:08 EDT GLUCOSE, GLUCOMETER Routine 10/18/2004 1 6:00 EDT SODIUM Routine 10/18/2004 14:37 EDT GLUCOSE, GLUCOMETER Routine 10/18/2004 1 1:59 EDT ELECTROLYTES Routine 10/18/2004 11:56 EDT GLUCOSE, GLUCOMETER Routine 10/18/2004 1 0:07 EDT SODIUM Routine 10/18/2004 10:06 EDT ELECTROLYTES Routine 10/18/2004 8:18 EDT URINALYSIS WITH MICROSCOPIC IF POSITIVE Routine 10/18/2004 7:59 EDT UA REFLEX Routine 10/18/2004 7:59 EDT URINE CULTURE IF POSITIVE Routine 10/18/2004 7:59 EDT SODIUM Routine 10/18/2004 6:38 EDT CREATININE Routine 10/18/2004 4:23 EDT COMPLETE BLOOD COUNT AND DIFFERENTIAL Routine 10/18/2004 4:23 EDT TOTAL & DIRECT BILIRUBIN Routine 10/18/2004 4:23 EDT BUN Routine 10/18/2004 4:23 EDT ALT Routine 10/18/2004 4:23 EDT AST Routine 10/18/2004 4:23 EDT PHOSPHORUS Routine 10/18/2004 4:23 EDT ALKALINE PHOSPHATASE Routine 10/18/2004 4:23 EDT MAGNESIUM Routine 10/18/2004 4:23 EDT CALCIUM Routine 10/18/2004 4:23 EDT ELECTROLYTES Routine 10/18/2004 4:23 EDT SODIUM Routine 10/18/2004 2:13 EDT SODIUM Routine 10/18/2004 1:00 EDT BLOOD GAS, EG6 ISTAT Routine 10/18/2004 0:10 EDT OSMOLALITY Routine 10/18/2004 0:07 EDT ELECTROLYTES Routine 10/18/2004 0:07 EDT GLUCOSE, GLUCOMETER Routine 10/18/2004 0 :06 EDT ELECTROLYTES Routine 10/17/2004 22:42 EDT OSMOLALITY Routine 10/17/2004 21:34 EDT ELECTROLYTES Routine 10/17/2004 21:34 EDT OSMOLALITY Routine 10/17/2004 15:50 EDT ELECTROLYTES Routine 10/17/2004 15:50 EDT SODIUM, URINE RANDOM Routine 10/17/2004 11:36 EDT OSMOLALITY, URINE Routine 10/17/2004 11: 36 EDT OSMOLALITY Routine 10/17/2004 11:35 EDT ELECTROLYTES Routine 10/17/2004 11:[address] HEAD WO CONTRAST Routine 10/17/2004 1 1:04 EDT IR CHANGE PICC Routine 10/17/2004 11:00 EDT SODIUM, URINE RANDOM Routine 10/17/2004 8:00 EDT OSMOLALITY Routine 10/17/2004 8:00 EDT OSMOLALITY, URINE Routine 10/17/2004 8:0 0 EDT ELECTROLYTES Routine 10/17/2004 8:00 EDT SODIUM Routine 10/17/2004 6:13 EDT SODIUM, URINE RANDOM Routine 10/17/2004 3:58 EDT OSMOLALITY, URINE Routine 10/17/2004 3:5 8 EDT CREATININE Routine 10/17/2004 3:57 EDT PTT Routine 10/17/2004 3:57 EDT PROTIME Routine 10/17/2004 3:57 EDT COMPLETE BLOOD COUNT AND DIFFERENTIAL Routine 10/17/2004 3:57 EDT OSMOLALITY Routine 10/17/2004 3:57 EDT BILIRUBIN DIRECT/INDIRECT Routine 10/17/2004 3:57 EDT BUN Routine 10/17/2004 3:57 EDT ALT Routine 10/17/2004 3:57 EDT AST Routine 10/17/2004 3:57 EDT PHOSPHORUS Routine 10/17/2004 3:57 EDT ALKALINE PHOSPHATASE Routine 10/17/2004 3:57 EDT GLUCOSE, SERUM Routine 10/17/2004 3:57 EDT CALCIUM Routine 10/17/2004 3:57 EDT BILIRUBIN, Routine 10/17/2004 3: 57 EDT BILIRUBIN, TOTAL Routine 10/17/2004 3:57 EDT ELECTROLYTES Routine 10/17/2004 3:57 EDT SODIUM Routine 10/17/2004 1:56 EDT SODIUM, URINE RANDOM Routine 10/17/2004 0:10 EDT OSMOLALITY, URINE Routine 10/17/2004 0:1 0 EDT OSMOLALITY Routine 10/17/2004 0:09 EDT ELECTROLYTES Routine 10/17/2004 0:09 EDT SODIUM Routine 10/16/2004 21:56 EDT SODIUM, URINE RANDOM Routine 10/16/2004 20:15 EDT OSMOLALITY Routine 10/16/2004 20:05 EDT ELECTROLYTES Routine 10/16/2004 20:05 EDT SODIUM Routine 10/16/2004 18:07 EDT SODIUM, URINE RANDOM Routine 10/16/2004 16:27 EDT OSMOLALITY Routine 10/16/2004 16:27 EDT SODIUM Routine 10/16/2004 16:27 EDT OSMOLALITY, URINE Routine 10/16/2004 16: 27 EDT GLUCOSE, SERUM Routine 10/16/2004 16:27 EDT ELECTROLYTES Routine 10/16/2004 16:27 EDT SODIUM Routine 10/16/2004 14:14 EDT SODIUM, URINE RANDOM Routine 10/16/2004 12:14 EDT OSMOLALITY, URINE Routine 10/16/2004 12: 14 EDT OSMOLALITY Routine 10/16/2004 12:13 EDT ELECTROLYTES Routine 10/16/2004 12:13 EDT SODIUM Routine 10/16/2004 10:21 EDT SODIUM, URINE RANDOM Routine 10/16/2004 8:22 EDT OSMOLALITY, URINE Routine 10/16/2004 8:2 2 EDT OSMOLALITY Routine 10/16/2004 8:21 EDT SODIUM Routine 10/16/2004 8:21 EDT ELECTROLYTES Routine 10/16/2004 8:21 EDT SODIUM Routine 10/16/2004 6:19 EDT CREATININE Routine 10/16/2004 4:25 EDT SODIUM, URINE RANDOM Routine 10/16/2004 4:25 EDT PTT Routine 10/16/2004 4:25 EDT PROTIME Routine 10/16/2004 4:25 EDT COMPLETE BLOOD COUNT AND DIFFERENTIAL Routine 10/16/2004 4:25 EDT OSMOLALITY Routine 10/16/2004 4:25 EDT BUN Routine 10/16/2004 4:25 EDT OSMOLALITY, URINE Routine 10/16/2004 4:2 5 EDT GLUCOSE, SERUM Routine 10/16/2004 4:25 EDT ELECTROLYTES Routine 10/16/2004 4:25 EDT SODIUM Routine 10/16/2004 2:11 EDT SODIUM, URINE RANDOM Routine 10/16/2004 0:18 EDT OSMOLALITY Routine 10/16/2004 0:18 EDT OSMOLALITY, URINE Routine 10/16/2004 0:1 8 EDT ELECTROLYTES Routine 10/16/2004 0:18 EDT SODIUM Routine 10/15/2004 21:55 EDT SODIUM, URINE RANDOM Routine 10/15/2004 20:04 EDT COMPLETE BLOOD COUNT Routine 10/15/2004 20:04 EDT OSMOLALITY Routine 10/15/2004 20:04 EDT OSMOLALITY, URINE Routine 10/15/2004 20: 04 EDT ELECTROLYTES Routine 10/15/2004 20:04 EDT SODIUM Routine 10/15/2004 18:23 EDT SODIUM, URINE RANDOM Routine 10/15/2004 16:23 EDT OSMOLALITY, URINE Routine 10/15/2004 16: 23 EDT OSMOLALITY Routine 10/15/2004 16:22 EDT GLUCOSE, SERUM Routine 10/15/2004 16:22 EDT ELECTROLYTES Routine 10/15/2004 16:22 EDT SODIUM Routine 10/15/2004 14:04 EDT OSMOLALITY Routine 10/15/2004 12:06 EDT SODIUM Routine 10/15/2004 12:06 EDT ELECTROLYTES Routine 10/15/2004 12:06 EDT SODIUM, URINE RANDOM Routine 10/15/2004 12:04 EDT OSMOLALITY, URINE Routine 10/15/2004 12: 04 EDT SODIUM Routine 10/15/2004 10:07 EDT URINE MICROSCOPIC Routine 10/15/2004 8:1 7 EDT URINALYSIS WITH MICROSCOPIC IF POSITIVE Routine 10/15/2004 8:17 EDT TESTS ADDED BY PHONE Routine 10/15/2004 8:17 EDT SODIUM, URINE RANDOM Routine 10/15/2004 8:17 EDT OSMOLALITY, URINE Routine 10/15/2004 8:1 7 EDT OSMOLALITY Routine 10/15/2004 8:16 EDT ELECTROLYTES Routine 10/15/2004 8:16 EDT CREATININE Routine 10/15/2004 4:21 EDT SODIUM, URINE RANDOM Routine 10/15/2004 4:21 EDT PTT Routine 10/15/2004 4:21 EDT PROTIME Routine 10/15/2004 4:21 EDT COMPLETE BLOOD COUNT AND DIFFERENTIAL Routine 10/15/2004 4:21 EDT OSMOLALITY Routine 10/15/2004 4:21 EDT BUN Routine 10/15/2004 4:21 EDT OSMOLALITY, URINE Routine 10/15/2004 4:2 1 EDT GLUCOSE, SERUM Routine 10/15/2004 4:21 EDT ELECTROLYTES Routine 10/15/2004 4:21 EDT SODIUM, URINE RANDOM Routine 10/15/2004 0:55 EDT OSMOLALITY, URINE Routine 10/15/2004 0:5 5 EDT OSMOLALITY Routine 10/15/2004 0:54 EDT ELECTROLYTES Routine 10/15/2004 0:54 EDT SODIUM, URINE RANDOM Routine 10/14/2004 22:05 EDT SODIUM Routine 10/14/2004 21:44 EDT CREATININE Routine 10/14/2004 20:25 EDT SODIUM, URINE RANDOM Routine 10/14/2004 20:25 EDT OSMOLALITY Routine 10/14/2004 20:25 EDT BUN Routine 10/14/2004 20:25 EDT OSMOLALITY, URINE Routine 10/14/2004 20: 25 EDT GLUCOSE, SERUM Routine 10/14/2004 20:25 EDT ELECTROLYTES Routine 10/14/2004 20:25 EDT OSMOLALITY Routine 10/14/2004 15:58 EDT GLUCOSE, SERUM Routine 10/14/2004 15:58 EDT ELECTROLYTES Routine 10/14/2004 15:58 EDT SODIUM, URINE RANDOM Routine 10/14/2004 15:57 EDT OSMOLALITY, URINE Routine 10/14/2004 15: [address] HEAD WO CONTRAST Routine 10/14/2004 1 3:25 EDT SODIUM, URINE RANDOM Routine 10/14/2004 11:49 EDT OSMOLALITY, URINE Routine 10/14/2004 11: 49 EDT OSMOLALITY Routine 10/14/2004 11:48 EDT ELECTROLYTES Routine 10/14/2004 11:48 EDT SODIUM, URINE RANDOM Routine 10/14/2004 8:01 EDT OSMOLALITY Routine 10/14/2004 8:01 EDT OSMOLALITY, URINE Routine 10/14/2004 8:0 1 EDT ELECTROLYTES Routine 10/14/2004 8:01 EDT CREATININE Routine 10/14/2004 4:22 EDT PTT Routine 10/14/2004 4:22 EDT PROTIME Routine 10/14/2004 4:22 EDT COMPLETE BLOOD COUNT AND DIFFERENTIAL Routine 10/14/2004 4:22 EDT OSMOLALITY Routine 10/14/2004 4:22 EDT BUN Routine 10/14/2004 4:22 EDT GLUCOSE, SERUM Routine 10/14/2004 4:22 EDT ELECTROLYTES Routine 10/14/2004 4:22 EDT REFRACTOMETER SPECIFIC GRAVITY, URINE Routine 10/14/2004 4:21 EDT SODIUM, URINE RANDOM Routine 10/14/2004 4:21 EDT OSMOLALITY, URINE Routine 10/14/2004 4:2 1 EDT SODIUM, URINE RANDOM Routine 10/14/2004 0:22 EDT OSMOLALITY Routine 10/14/2004 0:22 EDT OSMOLALITY, URINE Routine 10/14/2004 0:2 2 EDT GLUCOSE, SERUM Routine 10/14/2004 0:22 EDT ELECTROLYTES Routine 10/14/2004 0:22 EDT SODIUM Routine 10/13/2004 22:02 EDT OSMOLALITY Routine 10/13/2004 20:19 EDT ELECTROLYTES Routine 10/13/2004 20:19 EDT REFRACTOMETER SPECIFIC GRAVITY, URINE Routine 10/13/2004 20:16 EDT SODIUM, URINE RANDOM Routine 10/13/2004 20:16 EDT OSMOLALITY, URINE Routine 10/13/2004 20: 16 EDT SODIUM Routine 10/13/2004 18:38 EDT SODIUM, URINE RANDOM Routine 10/13/2004 17:34 EDT SODIUM, URINE RANDOM Routine 10/13/2004 15:42 EDT OSMOLALITY, URINE Routine 10/13/2004 15: 42 EDT OSMOLALITY Routine 10/13/2004 15:33 EDT PHENYTOIN Routine 10/13/2004 15:33 EDT ELECTROLYTES Routine 10/13/2004 15:33 EDT OSMOLALITY Routine 10/13/2004 12:01 EDT ELECTROLYTES Routine 10/13/2004 12:01 EDT URINALYSIS WITH MICROSCOPIC IF POSITIVE Routine 10/13/2004 12:00 EDT UA REFLEX Routine 10/13/2004 12:00 EDT BACTERIAL CULTURE/SMEAR, RESPIRATORY Routine 10/13/2004 12:00 EDT SODIUM, URINE RANDOM Routine 10/13/2004 12:[address] HEAD WO CONTRAST Routine 10/13/2004 1 0:50 EDT BACTERIAL CULTURE, BLOOD Routine 10/13/2004 10:25 EDT BACTERIAL CULTURE, BLOOD Routine 10/13/2004 10:15 EDT REFRACTOMETER SPECIFIC GRAVITY, URINE Routine 10/13/2004 8:19 EDT OSMOLALITY Routine 10/13/2004 8:16 EDT ELECTROLYTES Routine 10/13/2004 8:16 EDT PORTABLE CHEST 1 VIEW Routine 10/13/2004 7:00 EDT CREATININE Routine 10/13/2004 5:52 EDT PTT Routine 10/13/2004 5:52 EDT PROTIME Routine 10/13/2004 5:52 EDT COMPLETE BLOOD COUNT Routine 10/13/2004 5:52 EDT BUN Routine 10/13/2004 5:52 EDT ZZBLOOD GAS, G3 ISTAT Routine 10/13/2004 4:34 EDT REFRACTOMETER SPECIFIC GRAVITY, URINE Routine 10/13/2004 4:33 EDT SODIUM, URINE RANDOM Routine 10/13/2004 4:33 EDT OSMOLALITY Routine 10/13/2004 4:15 EDT ELECTROLYTES Routine 10/13/2004 4:15 EDT SODIUM Routine 10/13/2004 2:03 EDT ZZBLOOD GAS, G3 ISTAT Routine 10/13/2004 0:01 EDT PORTABLE CHEST 1 VIEW Routine 10/12/2004 23:[address] HEAD WO CONTRAST Routine 10/12/2004 2 3:12 EDT CREATININE Routine 10/12/2004 23:00 EDT SODIUM, URINE RANDOM Routine 10/12/2004 23:00 EDT PTT Routine 10/12/2004 23:00 EDT PROTIME Routine 10/12/2004 23:00 EDT COMPLETE BLOOD COUNT Routine 10/12/2004 23:00 EDT OSMOLALITY Routine 10/12/2004 23:00 EDT BUN Routine 10/12/2004 23:00 EDT OSMOLALITY, URINE Routine 10/12/2004 23: 00 EDT ELECTROLYTES Routine 10/12/2004 23:[address] ANGIO HEAD W CONTRAST Routine 10/12/2004 22:49 EDT BLOOD GAS, EG6 ISTAT Routine 10/12/2004 19:31 EDT BLOOD GAS, EG6 ISTAT Routine 10/12/2004 16:39 EDT BLOOD GAS, EG6 ISTAT Routine 10/12/2004 15:29 EDT GLUCOSE, GLUCOMETER Routine 10/12/2004 1 5:21 EDT SURGICAL PATHOLOGY Routine 10/12/2004 0: 00 EDT CHEST PA Routine 10/10/2004 14:35 EDT MR HEAD W/WO CONTRAST Routine 10/09/2004 12:20 EDT REFRACTOMETER SPECIFIC GRAVITY, URINE Routine 10/08/2004 16:00 EDT SODIUM, URINE RANDOM Routine 10/08/2004 8:30 EDT OSMOLALITY, URINE Routine 10/08/2004 8:3 0 EDT SODIUM, URINE RANDOM Routine 10/08/2004 0:30 EDT OSMOLALITY, URINE Routine 10/08/2004 0:3 0 EDT OSMOLALITY Routine 10/08/2004 0:25 EDT ELECTROLYTES Routine 10/08/2004 0:25 EDT REFRACTOMETER SPECIFIC GRAVITY, URINE Routine 10/07/2004 19:00 EDT SODIUM, URINE RANDOM Routine 10/07/2004 19:00 EDT OSMOLALITY Routine 10/07/2004 19:00 EDT OSMOLALITY, URINE Routine 10/07/2004 19: 00 EDT ELECTROLYTES Routine 10/07/2004 19:00 EDT REFRACTOMETER SPECIFIC GRAVITY, URINE Routine 10/07/2004 11:47 EDT SODIUM, URINE RANDOM Routine 10/07/2004 11:47 EDT OSMOLALITY, URINE Routine 10/07/2004 11: 47 EDT REFRACTOMETER SPECIFIC GRAVITY, URINE Routine 10/07/2004 4:20 EDT SODIUM, URINE RANDOM Routine 10/07/2004 4:20 EDT OSMOLALITY Routine 10/07/2004 4:20 EDT OSMOLALITY, URINE Routine 10/07/2004 4:2 0 EDT ELECTROLYTES Routine 10/07/2004 4:20 EDT REFRACTOMETER SPECIFIC GRAVITY, URINE Routine 10/06/2004 18:33 EST SODIUM, URINE RANDOM Routine 10/06/2004 18:33 EST OSMOLALITY, URINE Routine 10/06/2004 18: 33 EST OSMOLALITY Routine 10/06/2004 18:32 EST ELECTROLYTES Routine 10/06/2004 18:32 EST REFRACTOMETER SPECIFIC GRAVITY, URINE Routine 10/06/2004 14:45 EST SODIUM, URINE RANDOM Routine 10/06/2004 14:45 EST OSMOLALITY Routine 10/06/2004 14:45 EST OSMOLALITY, URINE Routine 10/06/2004 14: 45 EST ELECTROLYTES Routine 10/06/2004 14:45 EST REFRACTOMETER SPECIFIC GRAVITY, URINE Routine 10/06/2004 11:00 EST SODIUM, URINE RANDOM Routine 10/06/2004 11:00 EST OSMOLALITY Routine 10/06/2004 11:00 EST OSMOLALITY, URINE Routine 10/06/2004 11: 00 EST ELECTROLYTES Routine 10/06/2004 11:00 EST SODIUM, URINE RANDOM Routine 10/06/2004 6:40 EST OSMOLALITY Routine 10/06/2004 6:40 EST OSMOLALITY, URINE Routine 10/06/2004 6:4 0 EST ELECTROLYTES Routine 10/06/2004 6:40 EST OSMOLALITY Routine 10/06/2004 2:44 EST ELECTROLYTES Routine 10/06/2004 2:44 EST SODIUM, URINE RANDOM Routine 10/06/2004 2:43 EST OSMOLALITY, URINE Routine 10/06/2004 2:4 3 EST SODIUM, URINE RANDOM Routine 10/05/2004 22:11 EST OSMOLALITY, URINE Routine 10/05/2004 22: 11 EST OSMOLALITY Routine 10/05/2004 22:10 EST ELECTROLYTES Routine 10/05/2004 22:[address] HEAD WO CONTRAST Routine 10/05/2004 2 0:26 EST SODIUM, URINE RANDOM Routine 10/05/2004 18:24 EST OSMOLALITY, URINE Routine 10/05/2004 18: 24 EST OSMOLALITY Routine 10/05/2004 18:06 EST ELECTROLYTES Routine 10/05/2004 18:06 EST SODIUM, URINE RANDOM Routine 10/05/2004 15:36 EST OSMOLALITY, URINE Routine 10/05/2004 15: 36 EST CREATININE Routine 10/05/2004 14:19 EST COMPLETE BLOOD COUNT Routine 10/05/2004 14:19 EST OSMOLALITY Routine 10/05/2004 14:19 EST BUN Routine 10/05/2004 14:19 EST ELECTROLYTES Routine 10/05/2004 14:19 EST GLUCOSE, GLUCOMETER Routine 10/05/2004 1 4:16 EST documented in this encounter Results * SODIUM (11/20/2004 7:55 EDT) Sodium 145 136 - 145 mEq/L [facility] Comment:Heparinized plasma. 11/20/2004 7:55 EDT 11/20/2004 8:23 EDT Jodi Parr MD CHEMISTRY & BLOOD GA S ORDERABLES Performing Organization Address [facility] Co de Phone Number [facility] [address] [place] [address] * SODIUM (11/19/2004 20:05 EDT) Sodium 145 136 - 145 mEq/L [facility] 11/19/2004 20:0 5 EDT 11/19/2004 20:29 EDT Jodi Parr MD CHEMISTRY & BLOOD GA S ORDERABLES Performing Organization Address [facility] Phone Number [facility] [address] [place] [address] * (ABNORMAL) SODIUM (11/19/2004 8:00 EDT) Sodium 147(H) 136 - 145 mEq/L [facility] Comment:Heparinized plasma. 11/19/2004 8:00 EDT 11/19/2004 8:16 EDT Jodi Parr MD CHEMISTRY & BLOOD GA S ORDERABLES Performing Organization Address [facility] Phone Number [facility] [address] [place] [address] * SODIUM (11/18/2004 20:00 EDT) Sodium 144 136 - 145 mEq/L [facility] 11/18/2004 20:0 0 EDT 11/18/2004 20:41 EDT Jodi Parr MD CHEMISTRY & BLOOD GA S ORDERABLES Performing Organization Address [facility] Co de Phone Number [facility] [address] [place] [address] * (ABNORMAL) SODIUM (11/18/2004 14:00 EDT) Sodium 147(H) 136 - 145 mEq/L [facility] 11/18/2004 14:0 0 EDT 11/18/2004 14:38 EDT Jodi Parr MD CHEMISTRY & BLOOD GA S ORDERABLES Performing Organization Address [facility] Co de Phone Number [facility] [address] [place] [address] * (ABNORMAL) SODIUM (11/18/2004 8:00 EDT) Sodium 146(H) 136 - 145 mEq/L [facility] 11/18/2004 8:00 EDT 11/18/2004 8:24 EDT Jodi Parr MD CHEMISTRY & BLOOD GA S ORDERABLES Performing Organization Address [facility] de Phone Number [facility] [address] [place] [address] * SODIUM (11/17/2004 20:15 EDT) Sodium 141 136 - 145 mEq/L [facility] 11/17/2004 20:1 5 EDT 11/17/2004 20:46 EDT Jodi Parr MD CHEMISTRY & BLOOD GA S ORDERABLES Performing Organization Address [facility] de Phone Number [facility] [address] [place] [address] * SODIUM (11/17/2004 12:00 EDT) Sodium 142 136 - 145 mEq/L [facility] Comment:Heparinized plasma. 11/17/2004 12:0 0 EDT 11/17/2004 12:37 EDT Jodi Parr MD CHEMISTRY & BLOOD GA S ORDERABLES Performing Organization Address [facility] Co de Phone Number [facility] [address] [place] [address] * SODIUM (11/17/2004 4:00 EDT) Sodium 140 136 - 145 mEq/L [facility] 11/17/2004 4:00 EDT 11/17/2004 4:01 EDT Jodi Parr MD CHEMISTRY & BLOOD GA S ORDERABLES Performing Organization Address [facility] Co de Phone Number [facility] [address] [place] [address] * SODIUM (11/16/2004 19:45 EDT) Sodium 141 136 - 145 mEq/L [facility] 11/16/2004 19:4 5 EDT 11/16/2004 20:20 EDT Jodi Parr MD CHEMISTRY & BLOOD GA S ORDERABLES Performing Organization Address [facility] de Phone Number [facility] [address] [place] [address] * SODIUM (11/16/2004 11:30 EDT) Sodium 142 136 - 145 mEq/L [facility] 11/16/2004 11:3 0 EDT 11/16/2004 12:18 EDT Jodi Parr MD CHEMISTRY & BLOOD GA S ORDERABLES Performing Organization Address [facility] Co de Phone Number [facility] [address] [place] [address] * SODIUM (11/16/2004 3:45 EDT) Sodium 136 136 - 145 mEq/L [facility] 11/16/2004 3:45 EDT 11/16/2004 3:52 EDT Jodi Parr MD CHEMISTRY & BLOOD GA S ORDERABLES Performing Organization Address City/[facility]/ZIP Co de Phone Number [facility] [address] [place] [address] * SODIUM (11/15/2004 19:45 EDT) Sodium 139 136 - 145 mEq/L [facility] 11/15/2004 19:4 5 EDT 11/15/2004 20:00 EDT Jodi Parr MD CHEMISTRY & BLOOD GA S ORDERABLES Performing Organization Address [facility] Co de Phone Number [facility] [address] [place] [address] * SODIUM (11/15/2004 12:00 EDT) Sodium 141 136 - 145 mEq/L [facility] 11/15/2004 12:0 0 EDT 11/15/2004 12:42 EDT Jodi Parr MD CHEMISTRY & BLOOD GA S ORDERABLES Performing Organization Address [facility] de Phone Number [facility] [address] [place] [address] * SODIUM (11/15/2004 4:45 EDT) Sodium 141 136 - 145 mEq/L [facility] 11/15/2004 4:45 EDT 11/15/2004 5:07 EDT Jodi Parr MD CHEMISTRY & BLOOD GA S ORDERABLES Performing Organization Address [facility] de Phone Number [facility] [address] [place] [address] * SODIUM (11/14/2004 20:00 EDT) Sodium 144 136 - 145 mEq/L [facility] 11/14/2004 20:0 0 EDT 11/14/2004 20:20 EDT Jodi Parr MD CHEMISTRY & BLOOD GA S ORDERABLES Performing Organization Address [facility]/ZIP Co de Phone Number [facility] [address] [place] [address] * SODIUM (11/14/2004 11:35 EDT) Sodium 141 136 - 145 mEq/L [facility] 11/14/2004 11:3 5 EDT 11/14/2004 12:32 EDT Jodi Parr MD CHEMISTRY & BLOOD GA S ORDERABLES Performing Organization Address [facility] Phone Number [facility] [address] [place] [address] * SODIUM (11/14/2004 4:00 EDT) Sodium 140 136 - 145 mEq/L [facility] Comment:Heparinized plasma. 11/14/2004 4:00 EDT 11/14/2004 4:32 EDT Jodi Parr MD CHEMISTRY & BLOOD GA S ORDERABLES Performing Organization Address [facility] Phone Number [facility] [address] [place] [address] * SODIUM (11/13/2004 20:00 EDT) Sodium 142 136 - 145 mEq/L [facility] 11/13/2004 20:0 0 EDT 11/13/2004 20:59 EDT Jodi Parr MD CHEMISTRY & BLOOD GA S ORDERABLES Performing Organization Address [facility] Phone Number [facility] [address] [place] [address] * SODIUM (11/13/2004 20:00 EDT) Sodium 136 - 145 mEq/L [facility] 11/13/2004 20:0 0 EDT 11/20/2004 12:48 EDT Jodi Parr MD CHEMISTRY & BLOOD GA S ORDERABLES Performing Organization Address [facility] Co de Phone Number [facility] [address] [place] [address] * SODIUM (11/13/2004 11:55 EDT) Sodium 141 136 - 145 mEq/L [facility] 11/13/2004 11:5 5 EDT 11/13/2004 12:31 EDT Jodi Parr MD CHEMISTRY & BLOOD GA S ORDERABLES [facility] [address] [place] [address] * SODIUM (11/13/2004 4:02 EDT) Sodium 141 136 - 145 mEq/L [facility] 11/13/2004 4:02 EDT 11/13/2004 4:03 EDT Jodi Parr MD CHEMISTRY & BLOOD GA S ORDERABLES Performing Organization Address City/[facility]/ZIP Co de Phone Number [facility] [address] [place] [address] * SODIUM (11/12/2004 19:50 EDT) Sodium 140 136 - 145 mEq/L [facility] 11/12/2004 19:5 0 EDT 11/12/2004 21:02 EDT Jodi Parr MD CHEMISTRY & BLOOD GA S ORDERABLES Performing Organization Address City/[facility]/ZIP Co de Phone Number [facility] [address] [place] [address] * PHOSPHORUS (11/12/2004 11:55 EDT) Phosphorus 4.9 2.9 - 5.4 mg/dl [facility] Comment:Heparinized plasma. 11/12/2004 11:5 5 EDT 11/12/2004 12:09 EDT Jodi Parr MD CHEMISTRY & BLOOD GA S ORDERABLES [facility] [address] [place] [address] * PREALBUMIN (11/12/2004 11:55 EDT) Prealbumin 38 mg/dl [facility] 11/12/2004 11:5 5 EDT 11/12/2004 12:09 EDT Jodi Parr MD CHEMISTRY & BLOOD GA S ORDERABLES Performing Organization Address City/[facility]/ZIP Co de Phone Number [facility] [address] [place] [address] * SODIUM (11/12/2004 11:55 EDT) Sodium 138 136 - 145 mEq/L [facility] Comment:Heparinized plasma. 11/12/2004 11:5 5 EDT 11/12/2004 12:09 EDT Jodi Parr MD CHEMISTRY & BLOOD GA S ORDERABLES Performing Organization Address [facility] Co de Phone Number [facility] [address] [place] [address] * MAGNESIUM (11/12/2004 11:55 EDT) Magnesium 2.1 1.7 - 2.8 mg/dl [facility] Comment:Heparinized plasma. 11/12/2004 11:5 5 EDT 11/12/2004 12:09 EDT Jodi Parr MD CHEMISTRY & BLOOD GA S ORDERABLES Performing Organization Address City/[facility] Co de Phone Number [facility] [address] [place] [address] * PHOSPHORUS (11/12/2004 4:00 EDT) Phosphorus 4.9 2.9 - 5.4 mg/dl [facility] 11/12/2004 4:00 EDT 11/12/2004 4:07 EDT Jodi Parr MD CHEMISTRY & BLOOD GA S ORDERABLES Performing Organization Address City/[facility] Co de Phone Number [facility] [address] [place] [address] * SODIUM (11/12/2004 4:00 EDT) Sodium 136 136 - 145 mEq/L [facility] 11/12/2004 4:00 EDT 11/12/2004 4:07 EDT Jodi Parr MD CHEMISTRY & BLOOD GA S ORDERABLES Performing Organization Address [facility] de Phone Number [facility] [address] [place] [address] * MAGNESIUM (11/12/2004 4:00 EDT) Magnesium 2.0 1.7 - 2.8 mg/dl [facility] 11/12/2004 4:00 EDT 11/12/2004 4:07 EDT Jodi Parr MD CHEMISTRY & BLOOD GA S ORDERABLES Performing Organization Address [facility] Phone Number [facility] [address] [place] [address] * T4 FREE (11/12/2004 4:00 EDT) Free T4 0.8 0.8 - 1.8 ng/dl [facility] 11/12/2004 4:00 EDT 11/12/2004 4:07 EDT Jodi Parr MD CHEMISTRY & BLOOD GA S ORDERABLES Performing Organization Address [facility] de Phone Number [facility] [address] [place] [address] * CALCIUM (11/12/2004 4:00 EDT) Calcium 9.3 8.5 - 10.5 mg/dl [facility] Calculated Calcium 9.6 8.5 - 10.5 mg/dl [facility] 11/12/2004 4:00 EDT 11/12/2004 4:07 EDT Jodi Parr MD CHEMISTRY & BLOOD GA S ORDERABLES Performing Organization Address [facility] Co de Phone Number [facility] [address] [place] [address] * ALBUMIN (11/12/2004 4:00 EDT) Albumin 4.1 3.0 - 5.5 g/dl [facility] 11/12/2004 4:00 EDT 11/12/2004 4:07 EDT Jodi Parr MD CHEMISTRY & BLOOD GA S ORDERABLES Performing Organization Address [facility] Co de Phone Number [facility] [address] [place] [address] * SODIUM (11/11/2004 20:08 EDT) Sodium 137 136 - 145 mEq/L [facility] 11/11/2004 20:0 8 EDT 11/11/2004 20:13 EDT Jodi Parr MD CHEMISTRY & BLOOD GA S ORDERABLES Performing Organization Address [facility] Co de Phone Number [facility] [address] [place] [address] * SODIUM (11/11/2004 12:00 EDT) Sodium 137 136 - 145 mEq/L [facility] 11/11/2004 12:0 0 EDT 11/11/2004 12:28 EDT Jodi Parr MD CHEMISTRY & BLOOD GA S ORDERABLES Performing Organization Address [facility] Co de Phone Number [facility] [address] [place] [address] * (ABNORMAL) SODIUM (11/11/2004 4:00 EDT) Sodium 132(L) 136 - 145 mEq/L [facility] 11/11/2004 4:00 EDT 11/11/2004 4:08 EDT Jodi Parr MD CHEMISTRY & BLOOD GA S ORDERABLES [facility] [address] [place] [address] * (ABNORMAL) SODIUM (11/10/2004 20:45 EDT) Sodium 132(L) 136 - 145 mEq/L [facility] 11/10/2004 20:4 5 EDT 11/10/2004 20:54 EDT Jodi Parr MD CHEMISTRY & BLOOD GA S ORDERABLES Performing Organization Address [facility] Co de Phone Number [facility] [address] [place] [address] * SODIUM (11/10/2004 11:55 EDT) Sodium 137 136 - 145 mEq/L [facility] 11/10/2004 11:5 5 EDT 11/10/2004 12:53 EDT Jodi Parr MD CHEMISTRY & BLOOD GA S ORDERABLES Performing Organization Address [facility] Co de Phone Number [facility] [address] [place] [address] * (ABNORMAL) SODIUM (11/10/2004 3:45 EDT) Sodium 132(L) 136 - 145 mEq/L [facility] 11/10/2004 3:45 EDT 11/10/2004 4:11 EDT Jodi Parr MD CHEMISTRY & BLOOD GA S ORDERABLES Performing Organization Address [facility] Co de Phone Number [facility] [address] [place] [address] * SODIUM (11/09/2004 20:00 EDT) Sodium 136 136 - 145 mEq/L [facility] Comment:Heparinized plasma. 11/09/2004 20:0 0 EDT 11/09/2004 20:25 EDT Hilton Álvarez MD CHEMISTRY & BLOOD GAS ORDERABLES Performing Organization Address City/[facility] Co de Phone Number [facility] [address] [place] [address] * SODIUM (11/09/2004 13:20 EDT) Sodium 136 136 - 145 mEq/L [facility] Comment:Heparinized plasma. 11/09/2004 13:2 0 EDT 11/09/2004 13:39 EDT Jodi Parr MD CHEMISTRY & BLOOD GA S ORDERABLES Performing Organization Address [facility] Co de Phone Number [facility] [address] [place] [address] * (ABNORMAL) SODIUM (11/09/2004 4:20 EDT) Sodium 132(L) 136 - 145 mEq/L [facility] Comment:Heparinized plasma. 11/09/2004 4:20 EDT 11/09/2004 5:00 EDT Hilton Álvarez MD CHEMISTRY & BLOOD GAS ORDERABLES Performing Organization Address [facility] de Phone Number [facility] [address] [place] [address] * (ABNORMAL) SODIUM (11/08/2004 19:55 EDT) Sodium 133(L) 136 - 145 mEq/L [facility] 11/08/2004 19:5 5 EDT 11/08/2004 20:26 EDT Hilton Álvarez MD CHEMISTRY & BLOOD GAS ORDERABLES Performing Organization Address [facility] de Phone Number [facility] [address] [place] [address] * (ABNORMAL) SODIUM (11/08/2004 17:00 EDT) Sodium 133(L) 136 - 145 mEq/L [facility] 11/08/2004 17:0 0 EDT 11/08/2004 17:23 EDT Jodi Parr MD CHEMISTRY & BLOOD GA S ORDERABLES Performing Organization Address [facility] Co de Phone Number [facility] [address] [place] [address] * (ABNORMAL) SODIUM (11/08/2004 12:15 EDT) Sodium 131(L) 136 - 145 mEq/L [facility] 11/08/2004 12:1 5 EDT 11/08/2004 13:58 EDT Hilton Álvarez MD CHEMISTRY & BLOOD GAS ORDERABLES Performing Organization Address [facility] Co de Phone Number [facility] [address] [place] [address] * (ABNORMAL) SODIUM (11/08/2004 4:00 EDT) Sodium 135(L) 136 - 145 mEq/L [facility] 11/08/2004 4:00 EDT 11/08/2004 5:19 EDT Hilton Álvarez MD CHEMISTRY & BLOOD GAS ORDERABLES Performing Organization Address [facility] de Phone Number [facility] [address] [place] [address] * (ABNORMAL) SODIUM (11/07/2004 20:29 EDT) Sodium 135(L) 136 - 145 mEq/L [facility] Comment:Heparinized plasma. 11/07/2004 20:2 9 EDT 11/07/2004 20:30 EDT Hilton Álvarez MD CHEMISTRY & BLOOD GAS ORDERABLES Performing Organization Address [facility] de Phone Number [facility] [address] [place] [address] * (ABNORMAL) SODIUM (11/07/2004 12:24 EDT) Sodium 133(L) 136 - 145 mEq/L [facility] Comment:Heparinized plasma. 11/07/2004 12:2 4 EDT 11/07/2004 12:24 EDT Hilton Álvarez MD CHEMISTRY & BLOOD GAS ORDERABLES Performing Organization Address [facility] Phone Number [facility] [address] [place] [address] * (ABNORMAL) SODIUM (11/07/2004 6:25 EDT) Sodium 133(L) 136 - 145 mEq/L [facility] 11/07/2004 6:25 EDT 11/07/2004 6:26 EDT Hilton Álvarez MD CHEMISTRY & BLOOD GAS ORDERABLES Performing Organization Address [facility] Phone Number [facility] [address] [place] [address] * SODIUM (11/06/2004 22:00 EDT) Sodium 136 136 - 145 mEq/L [facility] 11/06/2004 22:0 0 EDT 11/06/2004 22:07 EDT Hilton Álvarez MD CHEMISTRY & BLOOD GAS ORDERABLES Performing Organization Address [facility] Phone Number [facility] [address] [place] [address] * SODIUM (11/06/2004 13:58 EDT) Sodium 138 136 - 145 mEq/L [facility] 11/06/2004 13:5 8 EDT 11/06/2004 13:58 EDT Hilton Álvarez MD CHEMISTRY & BLOOD GAS ORDERABLES Performing Organization Address [facility] de Phone Number [facility] [address] [place] [address] * ELECTROLYTES (11/06/2004 9:56 EDT) Sodium 137 136 - 145 mEq/L [facility] Potassium 4.3 3.6 - 5.2 mEq/L [facility] Chloride 97 96 - 110 mEq/L [facility] CO2 30 24 - 32 mEq/L [facility] 11/06/2004 9:56 EDT 11/06/2004 9:56 EDT Hilton Álvarez MD CHEMISTRY & BLOOD GAS ORDERABLES Performing Organization Address [facility] de Phone Number [facility] [address] [place] [address] * ELECTROLYTES (11/06/2004 3:22 EDT) Sodium 136 136 - 145 mEq/L [facility] Potassium 4.2 3.6 - 5.2 mEq/L [facility] Chloride 100 96 - 110 mEq/L [facility] CO2 30 24 - 32 mEq/L [facility] 11/06/2004 3:22 EDT 11/06/2004 3:22 EDT Hilton Álvarez MD CHEMISTRY & BLOOD GAS ORDERABLES Performing Organization Address [facility] de Phone Number [facility] [address] [place] [address] * ELECTROLYTES (11/05/2004 20:50 EDT) Sodium 137 136 - 145 mEq/L [facility] Potassium 4.2 3.6 - 5.2 mEq/L [facility] Chloride 101 96 - 110 mEq/L [facility] CO2 30 24 - 32 mEq/L [facility] 11/05/2004 20:5 0 EDT 11/05/2004 20:50 EDT Hilton Álvarez MD CHEMISTRY & BLOOD GAS ORDERABLES Performing Organization Address [facility] de Phone Number [facility] [address] [place] [address] * CT HEAD W/WO CONTRAST (11/05/2004 19:02 EDT) Anatomical Region Laterality Modality Other 11/05/2004 19:0 2 EDT Impressions 03/03/2009 15:46 EDT IMPRESSION: 1. 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 MR may be more helpful for further evaluation to exclude residual neoplasm. 2. Subdural effusion subjacent to the right frontotemporal craniotomy defect, slightly more prominent on today's exam. 3. Persistent slight subfalcine shift from right to left and no change in bithalamic areas of low attenuation, likely ischemic change, right more than left. 4. No new areas of hemorrhage identified. 5. Stable chronic pansinusitis. /jv Narrative 03/03/2009 15:46 EDT S/P CRANIOPHARYNGIOMA RESECTION. PERSISTANTLY POOR SENSORY RIGHT HEMIP LESIAR/O CHECK FOR BLEED HEAD CT NON-CONTRAST INDICATION: Craniopharyngeal resection. [place] in mental status. COMPARISON: 10/23/04 FINDINGS: The patient has had a prior right frontal craniotomy. Post surgical changes are again identified within the sellar region and suprasellar region, including a vascular clip seen along the dorsum sellae. The patient is moving, which slightly limits evaluation. Again identified are areas of diminished attenuation within the anterosuperior thalami, right more than left, suggesting ischemic change. There is a small extraaxial CSF fluid collection seen subjacent to the craniotomy defect, consistent with a subdural effusion, slightly more prominent on today's examination. No new hemorrhage is seen. There may be slight subfalcine shift but it is difficult to assess given some patient rotation. Post contrast images were also obtained. A prominent cisterna magna is again noted incidentally. There is marked opacification within ethmoid air cells bilaterally and sphenoid sinuses are nearly completely opacified. There is some additional mucosal thickening and retention cysts within the maxillary antra bilaterally. 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 Procedure Note Acosta Ness MD - 03/03/2009 S/P CRANIOPHARYNGIOMA RESECTION. PERSISTANTLY POOR SENSORY RIGHT HEMIP LESIAR/O CHECK FOR BLEED HEAD CT NON-CONTRAST INDICATION: Craniopharyngeal resection. Cheange in mental status. COMPARISON: 10/23/04 FINDINGS: The patient has had a prior right frontal craniotomy. Post surgical changes are again identified within the sellar region and suprasellar region, including a vascular clip seen along the dorsum sellae. The patient is moving, which slightly limits evaluation. Again identified are areas of diminished attenuation within the anterosuperior thalami, right more than left, suggesting ischemic change. There is a small extraaxial CSF fluid collection seen subjacent to the craniotomy defect, consistent with a subdural effusion, slightly more prominent on today's examination. No new hemorrhage is seen. There may be slight subfalcine shift but it is difficult to assess given some patient rotation. Post contrast images were also obtained. A prominent cisterna magna is again noted incidentally. There is marked opacification within ethmoid air cells bilaterally and sphenoid sinuses are nearly completely opacified. There is some additional mucosal thickening and retention cysts within the maxillary antra bilaterally. 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 IMPRESSION IMPRESSION: 1. 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 MR may be more helpful for further evaluation to exclude residual neoplasm. 2. Subdural effusion subjacent to the right frontotemporal craniotomy defect, slightly more prominent on today's exam. 3. Persistent slight subfalcine shift from right to left and no change in bithalamic areas of low attenuation, likely ischemic change, right more than left. 4. No new areas of hemorrhage identified. 5. Stable chronic pansinusitis. /jv Hilton Álvarez MD [facility] CT ORDERABLES * ELECTROLYTES (11/05/2004 12:30 EDT) Sodium 141 136 - 145 mEq/L [facility] Comment:Heparinized plasma. Potassium 4.0 3.6 - 5.2 mEq/L [facility] Comment:Heparinized plasma. Chloride 105 96 - 110 mEq/L [facility] Comment:Heparinized plasma. CO2 28 24 - 32 mEq/L [facility] Comment:Heparinized plasma. 11/05/2004 12:3 0 EDT 11/05/2004 12:52 EDT Hilton Álvarez MD CHEMISTRY & BLOOD GAS ORDERABLES Performing Organization Address [facility] Co de Phone Number [facility] [address] [place] [address] * SODIUM (11/05/2004 4:34 EDT) Sodium 136 - 145 mEq/L [facility] 11/05/2004 4:34 EDT 11/05/2004 4:34 EDT Hilton Álvarez MD CHEMISTRY & BLOOD GAS ORDERABLES Performing Organization Address [facility] Co de Phone Number [facility] [address] [place] [address] * ELECTROLYTES (11/05/2004 4:34 EDT) Sodium 142 136 - 145 mEq/L [facility] Potassium 4.0 3.6 - 5.2 mEq/L [facility] Chloride 106 96 - 110 mEq/L [facility] CO2 29 24 - 32 mEq/L [facility] 11/05/2004 4:34 EDT 11/05/2004 4:34 EDT Hilton Álvarez MD CHEMISTRY & BLOOD GAS ORDERABLES Performing Organization Address [facility] Co de Phone Number [facility] [address] [place] [address] * (ABNORMAL) T4 FREE (11/05/2004 4:34 EDT) Free T4 0.6(L) 0.8 - 1.8 ng/dl [facility] 11/05/2004 4:34 EDT 11/05/2004 4:34 EDT Hilton Álvarez MD CHEMISTRY & BLOOD GAS ORDERABLES Performing Organization Address [facility] Co de Phone Number [facility] [address] [place] [address] * (ABNORMAL) ELECTROLYTES (11/04/2004 22:06 EDT) Sodium 143 136 - 145 mEq/L [facility] Potassium 3.5(L) 3.6 - 5.2 mEq/L [facility] Chloride 106 96 - 110 mEq/L [facility] CO2 28 24 - 32 mEq/L [facility] 11/04/2004 22:0 6 EDT 11/04/2004 22:06 EDT Hilton Álvarez MD CHEMISTRY & BLOOD GAS ORDERABLES Performing Organization Address [facility] de Phone Number [facility] [address] [place] [address] * ELECTROLYTES (11/04/2004 14:25 EDT) Sodium 143 136 - 145 mEq/L [facility] Potassium 4.2 3.6 - 5.2 mEq/L [facility] Chloride 107 96 - 110 mEq/L [facility] CO2 28 24 - 32 mEq/L [facility] 11/04/2004 14:2 5 EDT 11/04/2004 14:26 EDT Hilton Álvarez MD CHEMISTRY & BLOOD GAS ORDERABLES Performing Organization Address [facility] de Phone Number [facility] [address] [place] [address] * SODIUM (11/04/2004 8:25 EDT) Sodium 142 136 - 145 mEq/L [facility] 11/04/2004 8:25 EDT 11/04/2004 8:38 EDT Hilton Álvarez MD CHEMISTRY & BLOOD GAS ORDERABLES Performing Organization Address [facility] Co de Phone Number [facility] [address] [place] [address] * ELECTROLYTES (11/04/2004 4:15 EDT) Sodium 143 136 - 145 mEq/L [facility] Potassium 4.2 3.6 - 5.2 mEq/L [facility] Chloride 104 96 - 110 mEq/L [facility] CO2 28 24 - 32 mEq/L [facility] 11/04/2004 4:15 EDT 11/04/2004 4:15 EDT Hilton Álvarez MD CHEMISTRY & BLOOD GAS ORDERABLES Performing Organization Address [facility] de Phone Number [facility] [address] [place] [address] * SODIUM (11/04/2004 0:31 EDT) Sodium 144 136 - 145 mEq/L [facility] 11/04/2004 0:31 EDT 11/04/2004 0:31 EDT Hilton Álvarez MD CHEMISTRY & BLOOD GAS ORDERABLES Performing Organization Address [facility] de Phone Number [facility] [address] [place] [address] * ELECTROLYTES (11/03/2004 20:16 EDT) Sodium 144 136 - 145 mEq/L [facility] Potassium 3.8 3.6 - 5.2 mEq/L [facility] Chloride 104 96 - 110 mEq/L [facility] CO2 29 24 - 32 mEq/L [facility] 11/03/2004 20:1 6 EDT 11/03/2004 20:16 EDT Hilton Álvarez MD CHEMISTRY & BLOOD GAS ORDERABLES Performing Organization Address [facility] de Phone Number [facility] [address] [place] [address] * SODIUM (11/03/2004 16:15 EDT) Sodium 142 136 - 145 mEq/L [facility] 11/03/2004 16:1 5 EDT 11/03/2004 16:30 EDT Hilton Álvarez MD CHEMISTRY & BLOOD GAS ORDERABLES Performing Organization Address [facility] de Phone Number [facility] [address] [place] [address] * ELECTROLYTES (11/03/2004 12:21 EDT) Sodium 144 136 - 145 mEq/L [facility] Potassium 3.9 3.6 - 5.2 mEq/L [facility] Chloride 106 96 - 110 mEq/L [facility] CO2 28 24 - 32 mEq/L [facility] 11/03/2004 12:2 1 EDT 11/03/2004 12:21 EDT Hilton Álvarez MD CHEMISTRY & BLOOD GAS ORDERABLES Performing Organization Address [facility] Phone Number [facility] [address] [place] [address] * SODIUM (11/03/2004 9:30 EDT) Sodium 145 136 - 145 mEq/L [facility] Comment:Heparinized plasma. 11/03/2004 9:30 EDT 11/03/2004 9:32 EDT Hilton Álvarez MD CHEMISTRY & BLOOD GAS ORDERABLES Performing Organization Address [facility] Phone Number [facility] [address] [place] [address] * ELECTROLYTES (11/03/2004 3:00 EDT) Sodium 142 136 - 145 mEq/L [facility] Comment:Heparinized plasma. Potassium 3.9 3.6 - 5.2 mEq/L [facility] Comment:Heparinized plasma. Chloride 105 96 - 110 mEq/L [facility] Comment:Heparinized plasma. CO2 30 24 - 32 mEq/L [facility] Comment:Heparinized plasma. 11/03/2004 3:00 EDT 11/03/2004 4:13 EDT Hilton Álvarez MD CHEMISTRY & BLOOD GAS ORDERABLES Performing Organization Address [facility] de Phone Number [facility] [address] [place] [address] * SODIUM (11/03/2004 0:14 EDT) Sodium 144 136 - 145 mEq/L [facility] Comment:Heparinized plasma. 11/03/2004 0:14 EDT 11/03/2004 0:14 EDT Hilton Álvarez MD CHEMISTRY & BLOOD GAS ORDERABLES Performing Organization Address [facility] de Phone Number [facility] [address] [place] [address] * (ABNORMAL) ELECTROLYTES (11/02/2004 20:02 EDT) Sodium 146(H) 136 - 145 mEq/L [facility] Potassium 4.1 3.6 - 5.2 mEq/L [facility] Chloride 107 96 - 110 mEq/L [facility] CO2 30 24 - 32 mEq/L [facility] 11/02/2004 20:0 2 EDT 11/02/2004 20:02 EDT Hilton Álvarez MD CHEMISTRY & BLOOD GAS ORDERABLES Performing Organization Address [facility] Phone Number [facility] [address] [place] [address] * SODIUM (11/02/2004 16:34 EDT) Sodium 145 136 - 145 mEq/L [facility] 11/02/2004 16:3 4 EDT 11/02/2004 16:34 EDT Hilton Álvarez MD CHEMISTRY & BLOOD GAS ORDERABLES Performing Organization Address [facility] de Phone Number [facility] [address] [place] [address] * (ABNORMAL) ELECTROLYTES (11/02/2004 12:32 EDT) Sodium 148(H) 136 - 145 mEq/L [facility] Comment:Heparinized plasma. Potassium 4.3 3.6 - 5.2 mEq/L [facility] Comment:Heparinized plasma. Chloride 108 96 - 110 mEq/L [facility] Comment:Heparinized plasma. CO2 30 24 - 32 mEq/L [facility] Comment:Heparinized plasma. 11/02/2004 12:3 2 EDT 11/02/2004 12:32 EDT Hilton Álvarez MD CHEMISTRY & BLOOD GAS ORDERABLES Performing Organization Address [facility] de Phone Number [facility] [address] [place] [address] * SODIUM (11/02/2004 8:39 EDT) Pathologist [facility] Sodium 141 136 - 145 mEq/L [facility] Comment:Heparinized plasma. 11/02/2004 8:39 EDT 11/02/2004 8:39 EDT Hilton Álvarez MD CHEMISTRY & BLOOD GAS ORDERABLES Performing Organization Address [facility] Phone Number [facility] [address] [place] [address] * (ABNORMAL) HEMAGRAM (11/02/2004 8:39 EDT) WBC 7.69 4.5 - 13.0 K/cmm [facility] RBC 3.14(L) 4.50 - 5.30 M/cmm [facility] Hemoglobin 9.0(L) 13.0 - 16.0 gm/dl [facility] HCT 26.4(L) 37.0 - 49.0 % [facility] MCV 84 78 - 98 fl [facility] MCH 28.7 pg [facility] MCHC 34.2 gm/dl [facility] PLT 275 156 - 312 K/cmm [facility] RDW-CV 16.7 % [facility] 11/02/2004 8:39 EDT 11/02/2004 8:39 EDT Hilton Álvarez MD HEMATOLOGY & PF4 O RDERABLES [facility] [address] [place] [address] * BACTERIAL CULTURE, BLOOD (11/02/2004 5:45 EDT) Specimen Description Blood PICC Line [facility] Result No growth [facility] Report Status Final [id number] [facility] 11/02/2004 5:45 EDT 11/02/2004 5:45 EDT Hilton Álvarez MD MICROBIOLOGY - GEN ERAL ORDERABLES Performing Organization Address [facility] Co de Phone Number [facility] [address] [place] [address] * BACTERIAL CULTURE, URINE (11/02/2004 5:43 EDT) Specimen Description Urine [facility] Result Greater than 100,000 CFU/ml STAPHYLOCOCCU S COAGULASE POSITIVE (STAPHYLOCOCC US AUREUS) [facility] Report Status Final [id number] [facility] 11/02/2004 5:43 EDT 11/02/2004 8:14 EDT Narrative Organism Antibiotic Method Susceptibility Greater than 100,000 cfu/mlstaphylococc us coagulase positive (staphylococcus aureus) Susceptibility comment SUSCEPTIBILITY (TRISTEN) 1 Susceptible to nafcillin, cephalosporins and other beta lactam antibiotics (mecA gene product absent). Resistant Greater than 100,000 cfu/mlstaphylococc us coagulase positive (staphylococcus aureus) Oxacillin SUSCEPTIBILITY (TRISTEN) 0.5 Susceptible Susceptible Greater than 100,000 cfu/mlstaphylococc us coagulase positive (staphylococcus aureus) Cefazolin SUSCEPTIBILITY (TRISTEN) <=8 Susceptible Susceptible Greater than 100,000 cfu/mlstaphylococc us coagulase positive (staphylococcus aureus) Nitrofurantoin SUSCEPTIBILITY (TRISTEN) <=32 Susceptible Susceptible Greater than 100,000 cfu/mlstaphylococc us coagulase positive (staphylococcus aureus) Vancomycin SUSCEPTIBILITY (TRISTEN) <=0.5 Susceptible Susceptible Greater than 100,000 cfu/mlstaphylococc us coagulase positive (staphylococcus aureus) Trimethoprim-Sulfametho xazole SUSCEPTIBILITY (TRISTEN) <=.5/9.5 Susceptible Susceptible Greater than 100,000 cfu/mlstaphylococc us coagulase positive (staphylococcus aureus) Ciprofloxacin SUSCEPTIBILITY (TRISTEN) <=0.5 Susceptible Susceptible Hilton Álvarez MD MICROBIOLOGY - GEN ERAL ORDERABLES [facility] [address] [place] [address] * (ABNORMAL) UA WITH MICROSCOPIC (11/02/2004 5:43 EDT) Color, UA Yellow [facility] Clarity, UA Cloudy [facility] Glucose, UA Norm NORM [facility] Bilirubin, UA Neg [facility]G [facility] Ketones, UA Neg NEG [facility] Specific [facility], Urine 1.015 1.005 - 1.02 [facility] Blood, UA Mod(A) NEG [facility] pH, UA 6.0 5.0 - 9.0 [facility] Protein, UA 1+(A) NEG [facility] Urobilinogen, UA Norm NORM mg/dL [facility] Nitrite, UA Pos(A) NEG [facility] Leuk Esterase Large(A) [facility]G [facility] WBC, UA Innum 0 - 5 /HPF [facility] RBC, UA 5 to 10 0 - 5 /HPF [facility] Squam Epithel, UA Microscopic field obscured by WBC's(A) NS /HPF [facility] Renal Epithel, UA Microscopic field obscured by WBC's(A) NS /HPF [facility] Bacteria, UA Many(A) NS /HPF [facility] Crystals, UA Microscopic field obscured by WBC's /HPF [facility] Hyaline Casts, UA Microscopic field obscured by WBC's /LPF [facility] UA Comment Microscopic results are unreliable on urines unrefrig >2hrs or refrig >8hrs. [facility] 11/02/2004 5:43 EDT 11/02/2004 5:43 EDT Hilton Álvarez MD URINALYSIS ORDERAB LES [facility] [address] [place] [address] * CULTURE IF UA POSITIVE (11/02/2004 5:43 EDT) Culture if Indicated Culture indicated by urinalysis results. [facility] 11/02/2004 5:43 EDT 11/02/2004 5:43 EDT Hilton Álvarez MD MICROBIOLOGY - GEN ERAL ORDERABLES Performing Organization Address [facility] Co de Phone Number [facility] [address] [place] [address] * ELECTROLYTES (11/02/2004 4:10 EDT) Sodium 143 136 - 145 mEq/L [facility] Potassium 4.2 3.6 - 5.2 mEq/L [facility] Chloride 104 96 - 110 mEq/L [facility] CO2 31 24 - 32 mEq/L [facility] 11/02/2004 4:10 EDT 11/02/2004 4:10 EDT Hilton Álvarez MD CHEMISTRY & BLOOD GAS ORDERABLES Performing Organization Address [facility] de Phone Number [facility] [address] [place] [address] * SODIUM (11/02/2004 0:09 EDT) Sodium 143 136 - 145 mEq/L [facility] 11/02/2004 0:09 EDT 11/02/2004 0:09 EDT Hilton Álvarez MD CHEMISTRY & BLOOD GAS ORDERABLES Performing Organization Address [facility] de Phone Number [facility] [address] [place] [address] * ELECTROLYTES (11/01/2004 20:00 EDT) Sodium 142 136 - 145 mEq/L [facility] Potassium 4.2 3.6 - 5.2 mEq/L [facility] Chloride 104 96 - 110 mEq/L [facility] CO2 27 24 - 32 mEq/L [facility] 11/01/2004 20:0 0 EDT 11/01/2004 20:30 EDT Hilton Álvarez MD CHEMISTRY & BLOOD GAS ORDERABLES Performing Organization Address [facility] de Phone Number [facility] [address] [place] [address] * SODIUM (11/01/2004 16:19 EDT) Sodium 142 136 - 145 mEq/L [facility] 11/01/2004 16:1 9 EDT 11/01/2004 16:19 EDT Hilton Álvarez MD CHEMISTRY & BLOOD GAS ORDERABLES Performing Organization Address [facility] Phone Number [facility] [address] [place] [address] * SODIUM (11/01/2004 12:28 EDT) Sodium 143 136 - 145 mEq/L [facility] Comment:Heparinized plasma. 11/01/2004 12:2 8 EDT 11/01/2004 12:28 EDT Hilton Álvarez MD CHEMISTRY & BLOOD GAS ORDERABLES Performing Organization Address [facility] de Phone Number [facility] [address] [place] [address] * POTASSIUM (11/01/2004 12:28 EDT) Potassium 4.6 3.6 - 5.2 mEq/L [facility] Comment:Heparinized plasma. 11/01/2004 12:2 8 EDT 11/01/2004 12:28 EDT Hilton Álvarez MD CHEMISTRY & BLOOD GAS ORDERABLES Performing Organization Address [facility] Co de Phone Number [facility] [address] [place] [address] * CO2 (11/01/2004 12:28 EDT) CO2 26 24 - 32 mEq/L [facility] Comment:Heparinized plasma. 11/01/2004 12:2 8 EDT 11/01/2004 12:28 EDT Hilton Álvarez MD CHEMISTRY & BLOOD GAS ORDERABLES Performing Organization Address [facility] Phone Number [facility] [address] [place] [address] * CHLORIDE (11/01/2004 12:28 EDT) Chloride 107 96 - 110 mEq/L [facility] Comment:Heparinized plasma. 11/01/2004 12:2 8 EDT 11/01/2004 12:28 EDT Hilton Álvarez MD CHEMISTRY & BLOOD GAS ORDERABLES Performing Organization Address [facility] Phone Number [facility] [address] [place] [address] * TESTS ADDED BY PHONE (11/01/2004 12:28 EDT) Tests to be added STAT K,CL,CO2 [facility] 11/01/2004 12:2 8 EDT 11/01/2004 12:28 EDT Hilton Álvarez MD CHEMISTRY & BLOOD GAS ORDERABLES Performing Organization Address [facility] Phone Number [facility] [address] [place] [address] * SODIUM (11/01/2004 8:26 EDT) Sodium 143 136 - 145 mEq/L [facility] Comment:Heparinized plasma. 11/01/2004 8:26 EDT 11/01/2004 8:26 EDT Hilton Álvarez MD CHEMISTRY & BLOOD GAS ORDERABLES Performing Organization Address [facility] Phone Number [facility] [address] [place] [address] * PHENYTOIN (11/01/2004 4:18 EDT) Phenytoin 11.1 ug/ml [facility] Comment:Heparinized plasma. Calculated Phenytoin 15.0 ug/ml [facility] Comment: Calculated phenytoin is adjusted for albumin level. Phenytoin levels may be further altered by severe renal failure (CrCl<10 ml/min). Consult pharmacy for renal or therapeutic dosing questions. Heparinized plasma. 11/01/2004 4:18 EDT 11/01/2004 4:18 EDT Hilton Álvarez MD CHEMISTRY & BLOOD GAS ORDERABLES Performing Organization Address [facility] Phone Number [facility] [address] [place] [address] * ELECTROLYTES (11/01/2004 4:18 EDT) Sodium 141 136 - 145 mEq/L [facility] Comment:Heparinized plasma. Potassium 4.4 3.6 - 5.2 mEq/L [facility] Comment:Heparinized plasma. Chloride 105 96 - 110 mEq/L [facility] Comment:Heparinized plasma. CO2 28 24 - 32 mEq/L [facility] Comment:Heparinized plasma. 11/01/2004 4:18 EDT 11/01/2004 4:18 EDT Hilton Álvarez MD CHEMISTRY & BLOOD GAS ORDERABLES Performing Organization Address [facility] de Phone Number [facility] [address] [place] [address] * SODIUM (11/01/2004 2:27 EDT) Sodium 145 136 - 145 mEq/L [facility] Comment:Heparinized plasma. 11/01/2004 2:27 EDT 11/01/2004 2:27 EDT Hilton Álvarez MD CHEMISTRY & BLOOD GAS ORDERABLES Performing Organization Address [facility] de Phone Number [facility] [address] [place] [address] * ELECTROLYTES (11/01/2004 0:10 EDT) Sodium 143 136 - 145 mEq/L [facility] Potassium 4.1 3.6 - 5.2 mEq/L [facility] Chloride 103 96 - 110 mEq/L [facility] Comment:Sample retested, res ult confirmed CO2 29 24 - 32 mEq/L [facility] 11/01/2004 0:10 EDT 11/01/2004 0:10 EDT Hilton Álvarez MD CHEMISTRY & BLOOD GAS ORDERABLES Performing Organization Address [facility] Co de Phone Number [facility] [address] [place] [address] * SODIUM (10/31/2004 18:48 EDT) Sodium 137 136 - 145 mEq/L [facility] 10/31/2004 18:4 8 EDT 10/31/2004 18:48 EDT Hilton Álvarez MD CHEMISTRY & BLOOD GAS ORDERABLES Performing Organization Address [facility] Co de Phone Number [facility] [address] [place] [address] * (ABNORMAL) SODIUM (10/31/2004 16:29 EDT) Sodium 133(L) 136 - 145 mEq/L [facility] Comment:Heparinized plasma. 10/31/2004 16:2 9 EDT 10/31/2004 16:29 EDT Hilton Álvarez MD CHEMISTRY & BLOOD GAS ORDERABLES Performing Organization Address [facility] Co de Phone Number [facility] [address] [place] [address] * (ABNORMAL) ELECTROLYTES (10/31/2004 12:08 EDT) Sodium 129(L) 136 - 145 mEq/L [facility] Comment:Heparinized plasma. Potassium 4.0 3.6 - 5.2 mEq/L [facility] Comment:Heparinized plasma. Chloride 91(L) 96 - 110 mEq/L [facility] Comment:Heparinized plasma. CO2 30 24 - 32 mEq/L [facility] Comment:Heparinized plasma. 10/31/2004 12:0 8 EDT 10/31/2004 12:08 EDT Hilton Álvarez MD CHEMISTRY & BLOOD GAS ORDERABLES Performing Organization Address [facility] de Phone Number [facility] [address] [place] [address] * (ABNORMAL) SODIUM (10/31/2004 8:18 EDT) Sodium 130(L) 136 - 145 mEq/L [facility] 10/31/2004 8:18 EDT 10/31/2004 8:18 EDT Hilton Álvarez MD CHEMISTRY & BLOOD GAS ORDERABLES Performing Organization Address [facility] de Phone Number [facility] [address] [place] [address] * OSMOLALITY, URINE (10/31/2004 6:28 EDT) Osmolality, Ur 723 MOS/KG [facility] 10/31/2004 6:28 EDT 10/31/2004 6:28 EDT Hilton Álvarez MD URINALYSIS ORDERAB LES Performing Organization Address [facility] de Phone Number [facility] [address] [place] [address] * SODIUM, URINE RANDOM (10/31/2004 6:28 EDT) Sodium, Ur 188.0 mEq/L [facility] 10/31/2004 6:28 EDT 10/31/2004 6:28 EDT Hilton Álvarez MD URINALYSIS ORDERAB LES Performing Organization [facility] de Phone Number [facility] [address] [place] [address] * OSMOLALITY (10/31/2004 6:26 EDT) Pathologist [facility] Osmolality Cintia 280 MOS/KG [facility] 10/31/2004 6:26 EDT 10/31/2004 6:26 EDT Hilton Álvarez MD CHEMISTRY & BLOOD GAS ORDERABLES Performing Organization Address [facility] de Phone Number [facility] [address] [place] [address] * (ABNORMAL) SODIUM (10/31/2004 6:26 EDT) Pathologist [facility] Sodium 128(L) 136 - 145 mEq/L [facility] 10/31/2004 6:26 EDT 10/31/2004 6:26 EDT Hilton Álvarez MD CHEMISTRY & BLOOD GAS ORDERABLES Performing Organization Address [facility] de Phone Number [facility] [address] [place] [address] * (ABNORMAL) ELECTROLYTES (10/31/2004 4:18 EDT) Pathologist [facility] Sodium 128(L) 136 - 145 mEq/L [facility] Potassium 4.3 3.6 - 5.2 mEq/L [facility] Chloride 91(L) 96 - 110 mEq/L [facility] CO2 28 24 - 32 mEq/L [facility] 10/31/2004 4:18 EDT 10/31/2004 4:18 EDT Hilton Álvarez MD CHEMISTRY & BLOOD GAS ORDERABLES Performing Organization Address [facility] de Phone Number [facility] [address] [place] [address] * (ABNORMAL) HEMAGRAM AND DIFFERENTIAL (10/31/2004 4:18 EDT) Pathologist [facility] WBC 9.50 4.5 - 13.0 K/cmm [facility] RBC 3.02(L) 4.50 - 5.30 M/cmm [facility] Hemoglobin 8.9(L) 13.0 - 16.0 gm/dl [facility] HCT 24.9(LL) 37.0 - 49.0 % [facility] MCV 82 78 - 98 fl [facility] MCH 29.3 pg [facility] MCHC 35.6 gm/dl [facility] PLT 279 156 - 312 K/cmm [facility] RDW-CV 15.9 % [facility] % Neutrophils 59.5 % [facility] % Lymphocytes 28.7 % [facility] % Monocytes 9.8 % [facility] % Eosinophils 1.6 % [facility] % Basophils 0.4 % [facility] ABS Neutrophils 5.65 K/cmm [facility] ABS Lymphs 2.73 K/cmm [facility] ABS Monocytes 0.93 K/cmm [facility] ABS Eosinophils 0.15 K/cmm [facility] ABS Basophils 0.03 K/cmm [facility] Type of Diff: Automated [facility] 10/31/2004 4:18 EDT 10/31/2004 4:18 EDT Hilton Álvarez MD PACKAGES & DNA PRO BE ORDERABLES Performing Organization Address City/State/[facility] Co de Phone Number [facility] [address] [place] [address] * (ABNORMAL) ELECTROLYTES (10/30/2004 20:33 EDT) Sodium 131(L) 136 - 145 mEq/L [facility] Potassium 4.3 3.6 - 5.2 mEq/L [facility] Chloride 94(L) 96 - 110 mEq/L [facility] CO2 29 24 - 32 mEq/L [facility] 10/30/2004 20:3 3 EDT 10/30/2004 20:33 EDT Hilton Álvarez MD CHEMISTRY & BLOOD GAS ORDERABLES Performing Organization Address City/[facility]/ZIP Co de Phone Number [facility] [address] [place] [address] * (ABNORMAL) SODIUM (10/30/2004 16:02 EDT) Sodium 133(L) 136 - 145 mEq/L [facility] 10/30/2004 16:0 2 EDT 10/30/2004 16:02 EDT Hilton Álvarez MD CHEMISTRY & BLOOD GAS ORDERABLES Performing Organization Address [facility] Co de Phone Number [facility] [address] [place] [address] * (ABNORMAL) ELECTROLYTES (10/30/2004 12:09 EDT) Sodium 133(L) 136 - 145 mEq/L [facility] Potassium 3.8 3.6 - 5.2 mEq/L [facility] Chloride 95(L) 96 - 110 mEq/L [facility] CO2 28 24 - 32 mEq/L [facility] 10/30/2004 12:0 9 EDT 10/30/2004 12:09 EDT Hilton Álvarez MD CHEMISTRY & BLOOD GAS ORDERABLES Performing Organization Address [facility] Co de Phone Number [facility] [address] [place] [address] * (ABNORMAL) SODIUM (10/30/2004 10:28 EDT) Sodium 132(L) 136 - 145 mEq/L [facility] 10/30/2004 10:2 8 EDT 10/30/2004 10:28 EDT Hilton Álvarez MD CHEMISTRY & BLOOD GAS ORDERABLES Performing Organization Address [facility] Co de Phone Number [facility] [address] [place] [address] * PHENYTOIN (10/30/2004 4:13 EDT) Phenytoin 13.3 ug/ml [facility] Calculated Phenytoin 18.0 ug/ml [facility] Comment: Calculated phenytoin is adjusted for albumin level. Phenytoin levels may be further altered by severe renal failure (CrCl<10 ml/min). Consult pharmacy for renal or therapeutic dosing questions. 10/30/2004 4:13 EDT 10/30/2004 4:13 EDT Hilton Álvarez MD CHEMISTRY & BLOOD GAS ORDERABLES Performing Organization Address [facility] de Phone Number [facility] [address] [place] [address] * (ABNORMAL) ELECTROLYTES (10/30/2004 4:13 EDT) Pathologist [facility] Sodium 132(L) 136 - 145 mEq/L [facility] Potassium 4.4 3.6 - 5.2 mEq/L [facility] Chloride 97 96 - 110 mEq/L [facility] CO2 27 24 - 32 mEq/L [facility] 10/30/2004 4:13 EDT 10/30/2004 4:13 EDT Hiltno Álvarez MD CHEMISTRY & BLOOD GAS ORDERABLES Performing Organization Address [facility] Phone Number [facility] [address] [place] [address] * (ABNORMAL) HEMAGRAM AND DIFFERENTIAL (10/30/2004 4:13 EDT) WBC 9.30 4.5 - 13.0 K/cmm [facility] RBC 3.13(L) 4.50 - 5.30 M/cmm [facility] Hemoglobin 9.0(L) 13.0 - 16.0 gm/dl [facility] HCT 25.8(L) 37.0 - 49.0 % [facility] MCV 83 78 - 98 fl [facility] MCH 28.6 pg [facility] MCHC 34.7 gm/dl [facility] PLT 304 156 - 312 K/cmm [facility] RDW-CV 16.1 % [facility] % Neutrophils 64.5 % [facility] % Lymphocytes 23.9 % [facility] % Monocytes 9.4 % [facility] % Eosinophils 1.2 % [facility] % Basophils 1.0 % [facility] ABS Neutrophils 6.01 K/cmm [facility] ABS Lymphs 2.22 K/cmm [facility] ABS Monocytes 0.87 K/cmm [facility] ABS Eosinophils 0.11 K/cmm [facility] ABS Basophils 0.09 K/cmm [facility] Type of Diff: Automated [facility] 10/30/2004 4:13 EDT 10/30/2004 4:13 EDT Hilton Álvarez MD PACKAGES & DNA PRO BE ORDERABLES Performing Organization Address [facility] de Phone Number [facility] [address] [place] [address] * (ABNORMAL) ELECTROLYTES (10/30/2004 0:11 EDT) Sodium 135(L) 136 - 145 mEq/L [facility] Potassium 3.7 3.6 - 5.2 mEq/L [facility] Chloride 97 96 - 110 mEq/L [facility] CO2 28 24 - 32 mEq/L [facility] 10/30/2004 0:11 EDT 10/30/2004 0:11 EDT Hilton Álvarez MD CHEMISTRY & BLOOD GAS ORDERABLES Performing Organization Address [facility] de Phone Number [facility] [address] [place] [address] * (ABNORMAL) SODIUM (10/30/2004 0:04 EDT) Sodium 131(L) 136 - 145 mEq/L [facility] 10/30/2004 0:04 EDT 10/31/2004 0:04 EDT Hilton Álvarez MD CHEMISTRY & BLOOD GAS ORDERABLES Performing Organization Address [facility]/ZIP Co de Phone Number [facility] [address] [place] [address] * (ABNORMAL) SODIUM (10/29/2004 22:00 EDT) Sodium 135(L) 136 - 145 mEq/L [facility] 10/29/2004 22:0 0 EDT 10/29/2004 22:00 EDT Hilton Álvarez MD CHEMISTRY & BLOOD GAS ORDERABLES Performing Organization Address [facility] de Phone Number [facility] [address] [place] [address] * (ABNORMAL) ELECTROLYTES (10/29/2004 18:14 EDT) Sodium 134(L) 136 - 145 mEq/L [facility] Potassium 5.0 3.6 - 5.2 mEq/L [facility] Chloride 99 96 - 110 mEq/L [facility] CO2 27 24 - 32 mEq/L [facility] 10/29/2004 18:1 4 EDT 10/29/2004 18:14 EDT Hilton Álvarez MD CHEMISTRY & BLOOD GAS ORDERABLES Performing Organization Address [facility] de Phone Number [facility] [address] [place] [address] * (ABNORMAL) ELECTROLYTES (10/29/2004 16:19 EDT) Sodium 133(L) 136 - 145 mEq/L [facility] Potassium 6.2(HH) 3.6 - 5.2 mEq/L [facility] Comment:Sample retested, res ult confirmed Chloride 99 96 - 110 mEq/L [facility] CO2 26 24 - 32 mEq/L [facility] 10/29/2004 16:1 9 EDT 10/29/2004 16:19 EDT Hilton Álvarez MD CHEMISTRY & BLOOD GAS ORDERABLES Performing Organization Address [facility] Co de Phone Number [facility] [address] [place] [address] * (ABNORMAL) SODIUM (10/29/2004 12:59 EDT) Sodium 132(L) 136 - 145 mEq/L [facility] Comment:Heparinized plasma. 10/29/2004 12:5 9 EDT 10/29/2004 12:59 EDT Hilton Álvarez MD CHEMISTRY & BLOOD GAS ORDERABLES Performing Organization Address [facility] Phone Number [facility] [address] [place] [address] * (ABNORMAL) ELECTROLYTES (10/29/2004 8:16 EDT) Sodium 135(L) 136 - 145 mEq/L [facility] Potassium 4.2 3.6 - 5.2 mEq/L [facility] Chloride 98 96 - 110 mEq/L [facility] CO2 30 24 - 32 mEq/L [facility] 10/29/2004 8:16 EDT 10/29/2004 8:16 EDT Hilton Álvarez MD CHEMISTRY & BLOOD GAS ORDERABLES Performing Organization Address [facility] Phone Number [facility] [address] [place] [address] * (ABNORMAL) SODIUM (10/29/2004 4:11 EDT) Sodium 135(L) 136 - 145 mEq/L [facility] 10/29/2004 4:11 EDT 10/29/2004 4:11 EDT Hilton Álvarez MD CHEMISTRY & BLOOD GAS ORDERABLES Performing Organization Address [facility] Phone Number [facility] [address] [place] [address] * (ABNORMAL) T4 FREE (10/29/2004 4:11 EDT) Free T4 0.5(L) 0.8 - 1.8 ng/dl [facility] 10/29/2004 4:11 EDT 10/29/2004 4:11 EDT Hilton Álvarez MD CHEMISTRY & BLOOD GAS ORDERABLES Performing Organization Address City/[facility]/ZIP Co de Phone Number [facility] [address] [place] [address] * (ABNORMAL) HEMAGRAM AND DIFFERENTIAL (10/29/2004 4:11 EDT) WBC 7.66 4.5 - 13.0 K/cmm [facility] RBC 3.14(L) 4.50 - 5.30 M/cmm [facility] Hemoglobin 8.9(L) 13.0 - 16.0 gm/dl [facility] HCT 26.3(L) 37.0 - 49.0 % [facility] MCV 84 78 - 98 fl [facility] MCH 28.3 pg [facility] MCHC 33.8 gm/dl [facility] PLT 264 156 - 312 K/cmm [facility] RDW-CV 15.7 % [facility] % Neutrophils 64.6 % [facility] % Lymphocytes 26.3 % [facility] % Monocytes 7.5 % [facility] % Eosinophils 1.2 % [facility] % Basophils 0.4 % [facility] ABS Neutrophils 4.95 K/cmm [facility] ABS Lymphs 2.02 K/cmm [facility] ABS Monocytes 0.57 K/cmm [facility] ABS Eosinophils 0.09 K/cmm [facility] ABS Basophils 0.03 K/cmm [facility] Type of Diff: Automated [facility] 10/29/2004 4:11 EDT 10/29/2004 4:11 EDT Hilton Álvarez MD PACKAGES & DNA PRO BE ORDERABLES Performing Organization Address City/[facility] Co de Phone Number [facility] [address] [place] [address] * SODIUM (10/29/2004 4:00 EDT) Sodium 136 - 145 mEq/L [facility] 10/29/2004 4:00 EDT 11/12/2004 7:24 EDT Hilton Álvarez MD CHEMISTRY & BLOOD GAS ORDERABLES Performing Organization Address [facility] de Phone Number [facility] [address] [place] [address] * ELECTROLYTES (10/29/2004 0:06 EDT) Sodium 136 136 - 145 mEq/L [facility] Potassium 4.6 3.6 - 5.2 mEq/L [facility] Chloride 98 96 - 110 mEq/L [facility] CO2 31 24 - 32 mEq/L [facility] 10/29/2004 0:06 EDT 10/29/2004 0:06 EDT Hilton Álvarez MD CHEMISTRY & BLOOD GAS ORDERABLES Performing Organization Address [facility] Phone Number [facility] [address] [place] [address] * SODIUM (10/28/2004 20:20 EDT) Sodium 136 136 - 145 mEq/L [facility] 10/28/2004 20:2 0 EDT 10/28/2004 20:25 EDT Hilton Álvarez MD CHEMISTRY & BLOOD GAS ORDERABLES Performing Organization Address [facility] de Phone Number [facility] [address] [place] [address] * ELECTROLYTES (10/28/2004 16:32 EDT) Sodium 136 136 - 145 mEq/L [facility] Potassium 4.1 3.6 - 5.2 mEq/L [facility] Chloride 100 96 - 110 mEq/L [facility] CO2 27 24 - 32 mEq/L [facility] 10/28/2004 16:3 2 EDT 10/28/2004 16:37 EDT Hilton Álvarez MD CHEMISTRY & BLOOD GAS ORDERABLES Performing Organization Address [facility] Phone Number [facility] [address] [place] [address] * SODIUM (10/28/2004 12:21 EDT) Sodium 136 136 - 145 mEq/L [facility] Comment:Heparinized plasma. 10/28/2004 12:2 1 EDT 10/28/2004 12:21 EDT Hilton Álvarez MD CHEMISTRY & BLOOD GAS ORDERABLES Performing Organization Address [facility] Phone Number [facility] [address] [place] [address] * (ABNORMAL) ELECTROLYTES (10/28/2004 8:53 EDT) Sodium 134(L) 136 - 145 mEq/L [facility] Comment:Heparinized plasma. Potassium 4.3 3.6 - 5.2 mEq/L [facility] Comment:Heparinized plasma. Chloride 96 96 - 110 mEq/L [facility] Comment:Heparinized plasma. CO2 28 24 - 32 mEq/L [facility] Comment:Heparinized plasma. 10/28/2004 8:53 EDT 10/28/2004 8:53 EDT Hilton Álvarez MD CHEMISTRY & BLOOD GAS ORDERABLES Performing Organization Address [facility] Phone Number [facility] [address] [place] [address] * PHENYTOIN (10/28/2004 4:41 EDT) Phenytoin 7.0 ug/ml [facility] Calculated Phenytoin 9.7 ug/ml [facility] Comment: Calculated phenytoin is adjusted for albumin level. Phenytoin levels may be further altered by severe renal failure (CrCl<10 ml/min). Consult pharmacy for renal or therapeutic dosing questions. 10/28/2004 4:41 EDT 10/28/2004 4:41 EDT Hilton Álvarez MD CHEMISTRY & BLOOD GAS ORDERABLES Performing Organization Address [facility] de Phone Number [facility] [address] [place] [address] * ELECTROLYTES (10/28/2004 4:41 EDT) Sodium 139 136 - 145 mEq/L [facility] Potassium 4.2 3.6 - 5.2 mEq/L [facility] Chloride 99 96 - 110 mEq/L [facility] CO2 25 24 - 32 mEq/L [facility] 10/28/2004 4:41 EDT 10/28/2004 4:41 EDT Hilton Álvarez MD CHEMISTRY & BLOOD GAS ORDERABLES Performing Organization Address [facility] de Phone Number [facility] [address] [place] [address] * (ABNORMAL) CREATININE (10/28/2004 4:41 EDT) Creatinine 0.5(L) 0.6 - 1.2 mg/dl [facility] [facility] 10/28/2004 4:41 EDT 10/28/2004 4:41 EDT Hilton Álvarez MD HISTORICAL LAB FOR SQ LOAD Performing Organization Address [facility] de Phone Number [facility] [address] [place] [address] * (ABNORMAL) HEMAGRAM AND DIFFERENTIAL (10/28/2004 4:41 EDT) WBC 8.20 4.5 - 13.0 K/cmm [facility] RBC 3.20(L) 4.50 - 5.30 M/cmm [facility] Hemoglobin 9.1(L) 13.0 - 16.0 gm/dl [facility] HCT 26.6(L) 37.0 - 49.0 % [facility] MCV 83 78 - 98 fl [facility] MCH 28.4 pg [facility] MCHC 34.2 gm/dl [facility] PLT 262 156 - 312 K/cmm [facility] RDW-CV 16.5 % [facility] Neutrophils 48.0 % [facility] % Bands 1.0 % [facility] Lymphocytes 30.0 % [facility] Monocytes 15.0 % [facility] Basophils 2.0 % [facility] % Metamyelocytes 4.0 % MELONIE TEAHER [facility] ABS Neutrophils 3.94 K/cmm SHERI [facility] Bands 0.08 K/cmm [facility] ABS Lymphs 2.46 K/cmm [facility] ABS Monocytes 1.23 K/cmm MELONIEMARSHA HILDA [facility] ABS Basophils 0.16 K/cmm TRUE STEVENS [facility] ABS Metamyelocytes 0.33 K/cmm [facility] RBC Morphology 1+ Anisocytosis 1+ Baso. stippling 1+ Microcytes 1+ Poikilocytosis 1+ Polychromasia [facility] Type of Diff: Manual TRUE HILDA [facility] 10/28/2004 4:41 EDT 10/28/2004 4:41 EDT Hilton Álvarez MD PACKAGES & DNA PRO BE ORDERABLES Performing Organization Address [facility] de Phone Number [facility] [address] [place] [address] * BUN (10/28/2004 4:41 EDT) BUN 17 8 - 21 mg/dl [facility] 10/28/2004 4:41 EDT 10/28/2004 4:41 EDT Hilton Álvarez MD CHEMISTRY & BLOOD GAS ORDERABLES Performing Organization Address [facility] de Phone Number [facility] [address] [place] [address] * (ABNORMAL) ELECTROLYTES (10/28/2004 0:20 EDT) Sodium 134(L) 136 - 145 mEq/L [facility] Potassium 4.8 3.6 - 5.2 mEq/L [facility] Chloride 98 96 - 110 mEq/L [facility] CO2 29 24 - 32 mEq/L [facility] 10/28/2004 0:20 EDT 10/28/2004 0:42 EDT Hilton Álvarez MD CHEMISTRY & BLOOD GAS ORDERABLES Performing Organization Address [facility] Phone Number [facility] [address] [place] [address] * SODIUM (10/27/2004 20:52 EDT) Sodium 136 136 - 145 mEq/L [facility] Comment:Heparinized plasma. 10/27/2004 20:5 2 EDT 10/27/2004 20:52 EDT Hilton Álvarez MD CHEMISTRY & BLOOD GAS ORDERABLES Performing Organization Address [facility] Phone Number [facility] [address] [place] [address] * ELECTROLYTES (10/27/2004 16:02 EDT) Sodium 136 136 - 145 mEq/L [facility] Potassium 4.8 3.6 - 5.2 mEq/L [facility] Chloride 100 96 - 110 mEq/L [facility] Comment:Sample retested, res ult confirmed CO2 27 24 - 32 mEq/L [facility] 10/27/2004 16:0 2 EDT 10/27/2004 16:02 EDT Hilton Álvarez MD CHEMISTRY & BLOOD GAS ORDERABLES Performing Organization Address [facility] de Phone Number [facility] [address] [place] [address] * (ABNORMAL) SODIUM (10/27/2004 12:49 EDT) Sodium 135(L) 136 - 145 mEq/L [facility] 10/27/2004 12:4 9 EDT 10/27/2004 12:49 EDT Hilton Álvarez MD CHEMISTRY & BLOOD GAS ORDERABLES Performing Organization Address [facility] de Phone Number [facility] [address] [place] [address] * (ABNORMAL) ELECTROLYTES (10/27/2004 8:21 EDT) Sodium 137 136 - 145 mEq/L [facility] Potassium 3.4(L) 3.6 - 5.2 mEq/L [facility] Chloride 112(H) 96 - 110 mEq/L [facility] CO2 21(L) 24 - 32 mEq/L [facility] 10/27/2004 8:21 EDT 10/27/2004 8:21 EDT Hilton Álvarez MD CHEMISTRY & BLOOD GAS ORDERABLES Performing Organization Address [facility] de Phone Number [facility] [address] [place] [address] * PHENYTOIN (10/27/2004 4:18 EDT) Phenytoin 10.6 ug/ml [facility] Calculated Phenytoin 14.7 ug/ml [facility] Comment: Calculated phenytoin is adjusted for albumin level. Phenytoin levels may be further altered by severe renal failure (CrCl<10 ml/min). Consult pharmacy for renal or therapeutic dosing questions. 10/27/2004 4:18 EDT 10/27/2004 4:18 EDT Hilton Álvarez MD CHEMISTRY & BLOOD GAS ORDERABLES Performing Organization Address [facility] Co de Phone Number [facility] [address] [place] [address] * SODIUM (10/27/2004 4:18 EDT) Sodium 137 136 - 145 mEq/L [facility] 10/27/2004 4:18 EDT 10/27/2004 4:18 EDT Hilton Álvarez MD CHEMISTRY & BLOOD GAS ORDERABLES Performing Organization Address City/[facility]/ZIP Co de Phone Number [facility] [address] [place] [address] * (ABNORMAL) CREATININE (10/27/2004 4:18 EDT) Pathologist [facility] Creatinine 0.5(L) 0.6 - 1.2 mg/dl [facility] 10/27/2004 4:18 EDT 10/27/2004 4:18 EDT Hilton Álvarez MD HISTORICAL LAB FOR SQ LOAD Performing Organization Address [facility] Co de Phone Number [facility] [address] [place] [address] * (ABNORMAL) HEMAGRAM AND DIFFERENTIAL (10/27/2004 4:18 EDT) Pathologist [facility] WBC 8.04 4.5 - 13.0 K/cmm [facility] RBC 3.24(L) 4.50 - 5.30 M/cmm [facility] Hemoglobin 9.1(L) 13.0 - 16.0 gm/dl [facility] HCT 27.2(L) 37.0 - 49.0 % [facility] MCV 84 78 - 98 fl [facility] MCH 28.0 pg [facility] MCHC 33.3 gm/dl [facility] PLT 293 156 - 312 K/cmm [facility] RDW-CV 16.5 % [facility] Neutrophils 65.0 % [facility] Lymphocytes 17.0 % [facility] Monocytes 6.0 % [facility] Eosinophils 4.0 % [facility] Basophils 1.0 % [facility] % Metamyelocytes 6.0 % MELONIE [facility] % Myelocytes 1.0 % FRANKIE [facility] ABS Neutrophils 5.23 K/cmm SHERI ALMEIDA [facility] ABS Lymphs 1.37 K/cmm [facility] ABS Monocytes 0.48 K/cmm TRUE STEVENS [facility] ABS Eosinophils 0.32 K/cmm SHERI ALMEIDA [facility] ABS Basophils 0.08 K/cmm TRUE ER [facility] ABS Metamyelocytes 0.48 K/cmm [facility] ABS Myelocytes 0.08 K/cmm HOLLY [facility] RBC Morphology 1+ Anisocytosis 1+ Poikilocytosis 1+ Polychromasia 1+ Ovalocytes 1+ Teardrop cells [facility] WBC Morphology 1+ Smudge cells [facility] Type of Diff: Manual TRUE [facility] 10/27/2004 4:18 EDT 10/27/2004 4:18 EDT Hilton Álvarez MD PACKAGES & DNA PRO BE ORDERABLES Performing Organization Address [facility] de Phone Number [facility] [address] [place] [address] * BUN (10/27/2004 4:18 EDT) BUN 13 8 - 21 mg/dl [facility] 10/27/2004 4:18 EDT 10/27/2004 4:18 EDT Hilton Álvarez MD CHEMISTRY & BLOOD GAS ORDERABLES Performing Organization Address [facility] de Phone Number [facility] [address] [place] [address] * ELECTROLYTES (10/27/2004 2:28 EDT) Sodium 136 136 - 145 mEq/L [facility] Potassium 4.6 3.6 - 5.2 mEq/L [facility] Chloride 101 96 - 110 mEq/L [facility] CO2 28 24 - 32 mEq/L [facility] 10/27/2004 2:28 EDT 10/27/2004 2:28 EDT Hilton Álvarez MD CHEMISTRY & BLOOD GAS ORDERABLES Performing Organization Address [facility] de Phone Number [facility] [address] [place] [address] * SODIUM (10/26/2004 20:40 EDT) Sodium 138 136 - 145 mEq/L [facility] 10/26/2004 20:4 0 EDT 10/26/2004 20:52 EDT Hilton Álvarez MD CHEMISTRY & BLOOD GAS ORDERABLES Performing Organization Address [facility] de Phone Number [facility] [address] [place] [address] * ELECTROLYTES (10/26/2004 16:01 EDT) Sodium 137 136 - 145 mEq/L [facility] Potassium 4.2 3.6 - 5.2 mEq/L [facility] Chloride 104 96 - 110 mEq/L [facility] CO2 27 24 - 32 mEq/L [facility] 10/26/2004 16:0 1 EDT 10/26/2004 16:01 EDT Hilton Álvarez MD CHEMISTRY & BLOOD GAS ORDERABLES Performing Organization Address [facility] Phone Number [facility] [address] [place] [address] * SODIUM (10/26/2004 12:39 EDT) Sodium 138 136 - 145 mEq/L [facility] Comment:Heparinized plasma. 10/26/2004 12:3 9 EDT 10/26/2004 12:39 EDT Hilton Álvarez MD CHEMISTRY & BLOOD GAS ORDERABLES Performing Organization Address [facility] de Phone Number [facility] [address] [place] [address] * MAGNESIUM (10/26/2004 8:05 EDT) Magnesium 2.4 1.7 - 2.8 mg/dl [facility] Comment:Heparinized plasma. 10/26/2004 8:05 EDT 10/26/2004 8:05 EDT Hilton Álvarez MD CHEMISTRY & BLOOD GAS ORDERABLES Performing Organization Address [facility] de Phone Number [facility] [address] [place] [address] * ELECTROLYTES (10/26/2004 8:05 EDT) Sodium 138 136 - 145 mEq/L [facility] Comment:Heparinized plasma. Potassium 4.1 3.6 - 5.2 mEq/L [facility] Comment:Heparinized plasma. Chloride 102 96 - 110 mEq/L [facility] Comment:Heparinized plasma. CO2 28 24 - 32 mEq/L [facility] Comment:Heparinized plasma. 10/26/2004 8:05 EDT 10/26/2004 8:05 EDT Hilton Álvarez MD CHEMISTRY & BLOOD GAS ORDERABLES Performing Organization Address [facility] de Phone Number [facility] [address] [place] [address] * PHENYTOIN (10/26/2004 3:53 EDT) Phenytoin 13.6 ug/ml [facility] Comment:Heparinized plasma. Calculated Phenytoin 20.0 ug/ml [facility] Comment: Calculated phenytoin is adjusted for albumin level. Phenytoin levels may be further altered by severe renal failure (CrCl<10 ml/min). Consult pharmacy for renal or therapeutic dosing questions. Heparinized plasma. 10/26/2004 3:53 EDT 10/26/2004 3:53 EDT Hilton Álvarez MD CHEMISTRY & BLOOD GAS ORDERABLES Performing Organization Address [facility] de Phone Number [facility] [address] [place] [address] * (ABNORMAL) SODIUM (10/26/2004 3:53 EDT) Sodium 134(L) 136 - 145 mEq/L [facility] Comment:Heparinized plasma. 10/26/2004 3:53 EDT 10/26/2004 3:53 EDT Hilton Álvarez MD CHEMISTRY & BLOOD GAS ORDERABLES Performing Organization Address [facility]/State/ZIP Co de Phone Number [facility] [address] [place] [address] * (ABNORMAL) CREATININE (10/26/2004 3:53 EDT) Creatinine 0.5(L) 0.6 - 1.2 mg/dl [facility] Comment:Heparinized plasma. 10/26/2004 3:53 EDT 10/26/2004 3:53 EDT Hilton Álvarez MD HISTORICAL LAB FOR SQ LOAD [facility] [address] [place] [address] * (ABNORMAL) HEMAGRAM AND DIFFERENTIAL (10/26/2004 3:53 EDT) Pathologist [facility] WBC 12.68 4.5 - 13.0 K/cmm [facility] RBC 3.23(L) 4.50 - 5.30 M/cmm [facility] Hemoglobin 9.3(L) 13.0 - 16.0 gm/dl [facility] HCT 26.7(L) 37.0 - 49.0 % [facility] MCV 83 78 - 98 fl [facility] MCH 28.9 pg [facility] MCHC 34.9 gm/dl [facility] PLT 301 156 - 312 K/cmm [facility] RDW-CV 16.3 % [facility] % Neutrophils 79.9 % [facility] % Lymphocytes 13.3 % [facility] % Monocytes 5.9 % [facility] % Eosinophils 0.4 % [facility] % Basophils 0.5 % [facility] ABS Neutrophils 10.13 K/cmm [facility]LET [facility] ABS Lymphs 1.68 K/cmm [facility] ABS Monocytes 0.75 K/cmm [facility] ABS Eosinophils 0.05 K/cmm [facility] ABS Basophils 0.07 K/cmm [facility] Type of Diff: Automated [facility] 10/26/2004 3:53 EDT 10/26/2004 3:53 EDT Hilton Álvarez MD PACKAGES & DNA PRO BE ORDERABLES Performing Organization Address [facility] Phone Number [facility] [address] [place] [address] * BUN (10/26/2004 3:53 EDT) BUN 18 8 - 21 mg/dl [facility] Comment:Heparinized plasma. 10/26/2004 3:53 EDT 10/26/2004 3:53 EDT Hilton Álvarez MD CHEMISTRY & BLOOD GAS ORDERABLES Performing Organization Address [facility] de Phone Number [facility] [address] [place] [address] * (ABNORMAL) ELECTROLYTES (10/26/2004 0:15 EDT) Sodium 135(L) 136 - 145 mEq/L [facility] Potassium 3.8 3.6 - 5.2 mEq/L [facility] Chloride 100 96 - 110 mEq/L [facility] CO2 27 24 - 32 mEq/L [facility] 10/26/2004 0:15 EDT 10/26/2004 0:15 EDT Hilton Álvarez MD CHEMISTRY & BLOOD GAS ORDERABLES Performing Organization Address [facility] Phone Number [facility] [address] [place] [address] * SODIUM (10/25/2004 20:41 EDT) Sodium 139 136 - 145 mEq/L [facility] 10/25/2004 20:4 1 EDT 10/25/2004 20:41 EDT Hilton Álvarez MD CHEMISTRY & BLOOD GAS ORDERABLES Performing Organization Address [facility] Co de Phone Number [facility] [address] [place] [address] * ELECTROLYTES (10/25/2004 17:25 EDT) Sodium 137 136 - 145 mEq/L [facility] Potassium 3.9 3.6 - 5.2 mEq/L [facility] Chloride 100 96 - 110 mEq/L [facility] CO2 28 24 - 32 mEq/L [facility] 10/25/2004 17:2 5 EDT 10/25/2004 17:27 EDT Hilton Álvarez MD CHEMISTRY & BLOOD GAS ORDERABLES Performing Organization Address [facility] Phone Number [facility] [address] [place] [address] * SODIUM (10/25/2004 12:15 EDT) Sodium 137 136 - 145 mEq/L [facility] Comment:Heparinized plasma. 10/25/2004 12:1 5 EDT 10/25/2004 12:32 EDT Hilton Álvarez MD CHEMISTRY & BLOOD GAS ORDERABLES Performing Organization Address [facility] Phone Number [facility] [address] [place] [address] * ELECTROLYTES (10/25/2004 8:30 EDT) Sodium 136 136 - 145 mEq/L [facility] Comment:Heparinized plasma. Potassium 3.8 3.6 - 5.2 mEq/L [facility] Comment:Heparinized plasma. Chloride 102 96 - 110 mEq/L [facility] Comment:Heparinized plasma. CO2 26 24 - 32 mEq/L [facility] Comment:Heparinized plasma. 10/25/2004 8:30 EDT 10/25/2004 8:34 EDT Hilton Álvarez MD CHEMISTRY & BLOOD GAS ORDERABLES Performing Organization Address [facility] de Phone Number [facility] [address] [place] [address] * TOTAL BILIRUBIN (10/25/2004 4:13 EDT) Bilirubin, Total <0.5 0.0 - 1.4 mg/dl [facility] 10/25/2004 4:13 EDT 10/25/2004 4:13 EDT Hilton Álvarez MD CHEMISTRY & BLOOD GAS ORDERABLES Performing Organization Address [facility] de Phone Number [facility] [address] [place] [address] * PHOSPHORUS (10/25/2004 4:13 EDT) Phosphorus 2.9 2.9 - 5.4 mg/dl [facility] 10/25/2004 4:13 EDT 10/25/2004 4:13 EDT Hilton Álvarez MD CHEMISTRY & BLOOD GAS ORDERABLES Performing Organization Address [facility] de Phone Number [facility] [address] [place] [address] * PHENYTOIN (10/25/2004 4:13 EDT) Phenytoin 12.2 ug/ml [facility] Calculated Phenytoin 19.7 ug/ml [facility] Comment: Calculated phenytoin is adjusted for albumin level. Phenytoin levels may be further altered by severe renal failure (CrCl<10 ml/min). Consult pharmacy for renal or therapeutic dosing questions. 10/25/2004 4:13 EDT 10/25/2004 4:13 EDT Hilton Álvarez MD CHEMISTRY & BLOOD GAS ORDERABLES Performing Organization Address [facility] de Phone Number [facility] [address] [place] [address] * MAGNESIUM (10/25/2004 4:13 EDT) Magnesium 1.8 1.7 - 2.8 mg/dl [facility] 10/25/2004 4:13 EDT 10/25/2004 4:13 EDT Hilton Álvarez MD CHEMISTRY & BLOOD GAS ORDERABLES Performing Organization Address [facility] de Phone Number [facility] [address] [place] [address] * (ABNORMAL) ELECTROLYTES (10/25/2004 4:13 EDT) Sodium 140 136 - 145 mEq/L [facility] Potassium 3.4(L) 3.6 - 5.2 mEq/L [facility] Chloride 112(H) 96 - 110 mEq/L [facility] CO2 18(L) 24 - 32 mEq/L [facility] 10/25/2004 4:13 EDT 10/25/2004 4:13 EDT Hilton Álvarez MD CHEMISTRY & BLOOD GAS ORDERABLES Performing Organization Address [facility] de Phone Number [facility] [address] [place] [address] * (ABNORMAL) CREATININE (10/25/2004 4:13 EDT) Creatinine 0.4(L) 0.6 - 1.2 mg/dl [facility] 10/25/2004 4:13 EDT 10/25/2004 4:13 EDT Hilton Álvarez MD HISTORICAL LAB FOR SQ LOAD Performing Organization Address [facility] de Phone Number [facility] [address] [place] [address] * (ABNORMAL) HEMAGRAM AND DIFFERENTIAL (10/25/2004 4:13 EDT) WBC 6.43 4.5 - 13.0 K/cmm [facility] RBC 2.68(L) 4.50 - 5.30 M/cmm [facility] Hemoglobin 7.6(LL) 13.0 - 16.0 gm/dl [facility] Comment:QNS to repeat HCT 22.3(LL) 37.0 - 49.0 % AINSHA [facility] MCV 83 78 - 98 fl [facility] MCH 28.2 pg [facility] MCHC 34.0 gm/dl [facility] PLT 261 156 - 312 K/cmm [facility] RDW-CV 16.4 % [facility] % Neutrophils 66.9 % [facility] % Lymphocytes 21.6 % [facility] % Monocytes 8.5 % [facility] % Eosinophils 2.2 % [facility] % Basophils 0.8 % [facility] ABS Neutrophils 4.30 K/cmm [facility] ABS Lymphs 1.39 K/cmm [facility] ABS Monocytes 0.55 K/cmm [facility] ABS Eosinophils 0.14 K/cmm [facility] ABS Basophils 0.05 K/cmm [facility] Type of Diff: Automated [facility] 10/25/2004 4:13 EDT 10/25/2004 4:13 EDT Hilton Álvarez MD PACKAGES & DNA PRO BE ORDERABLES Performing Organization Address [facility] Co de Phone Number [facility] [address] [place] [address] * (ABNORMAL) CALCIUM (10/25/2004 4:13 EDT) Calcium 7.1(L) 8.5 - 10.5 mg/dl [facility] Calculated Calcium 8.9 8.5 - 10.5 mg/dl [facility] 10/25/2004 4:13 EDT 10/25/2004 4:13 EDT Hilton Álvarez MD CHEMISTRY & BLOOD GAS ORDERABLES Performing Organization Address [facility] Co de Phone Number [facility] [address] [place] [address] * BUN (10/25/2004 4:13 EDT) BUN 14 8 - 21 mg/dl [facility] 10/25/2004 4:13 EDT 10/25/2004 4:13 EDT Hilton Álvarez MD CHEMISTRY & BLOOD GAS ORDERABLES Performing Organization Address [facility] Co de Phone Number [facility] [address] [place] [address] * (ABNORMAL) AST (10/25/2004 4:13 EDT) AST 179(H) 16 - 38 U/L [facility] 10/25/2004 4:13 EDT 10/25/2004 4:13 EDT Hilton Álvarez MD CHEMISTRY & BLOOD GAS ORDERABLES Performing Organization Address [facility] de Phone Number [facility] [address] [place] [address] * (ABNORMAL) ALT (10/25/2004 4:13 EDT) Pathologist [facility] ALT 493(H) 10 - 45 U/L [facility] 10/25/2004 4:13 EDT 10/25/2004 4:13 EDT Hilton Álvarez MD CHEMISTRY & BLOOD GAS ORDERABLES Performing Organization Address [facility] de Phone Number [facility] [address] [place] [address] * (ABNORMAL) ALKALINE PHOSPHATASE (10/25/2004 4:13 EDT) Total Alkaline Phosphatase 90(L) 130 - 525 U/L [facility] 10/25/2004 4:13 EDT 10/25/2004 4:13 EDT Hilton Álvarez MD CHEMISTRY & BLOOD GAS ORDERABLES Performing Organization Address [facility] de Phone Number [facility] [address] [place] [address] * (ABNORMAL) ELECTROLYTES (10/25/2004 0:07 EDT) Sodium 140 136 - 145 mEq/L [facility] Potassium 3.3(L) 3.6 - 5.2 mEq/L [facility] Chloride 110 96 - 110 mEq/L [facility] CO2 24 24 - 32 mEq/L [facility] 10/25/2004 0:07 EDT 10/25/2004 0:07 EDT Hilton Álvarez MD CHEMISTRY & BLOOD GAS ORDERABLES Performing Organization Address [facility] de Phone Number [facility] [address] [place] [address] * SODIUM (10/24/2004 20:14 EDT) Sodium 139 136 - 145 mEq/L [facility] 10/24/2004 20:1 4 EDT 10/24/2004 20:14 EDT Hilton Álvarez MD CHEMISTRY & BLOOD GAS ORDERABLES Performing Organization Address [facility] Phone Number [facility] [address] [place] [address] * PHOSPHORUS (10/24/2004 16:01 EDT) Phosphorus 2.9 2.9 - 5.4 mg/dl [facility] 10/24/2004 16:0 1 EDT 10/24/2004 16:06 EDT Hilton Álvarez MD CHEMISTRY & BLOOD GAS ORDERABLES Performing Organization Address [facility] Phone Number [facility] [address] [place] [address] * ELECTROLYTES (10/24/2004 16:01 EDT) Sodium 140 136 - 145 mEq/L [facility] Potassium 3.8 3.6 - 5.2 mEq/L [facility] Chloride 108 96 - 110 mEq/L [facility] CO2 27 24 - 32 mEq/L [facility] 10/24/2004 16:0 1 EDT 10/24/2004 16:06 EDT Hilton Álvarez MD CHEMISTRY & BLOOD GAS ORDERABLES Performing Organization Address [facility] Co de Phone Number [facility] [address] [place] [address] * SODIUM (10/24/2004 12:05 EDT) Sodium 142 136 - 145 mEq/L [facility] 10/24/2004 12:0 5 EDT 10/24/2004 12:05 EDT Hilton Álvarez MD CHEMISTRY & BLOOD GAS ORDERABLES Performing Organization Address [facility] de Phone Number [facility] [address] [place] [address] * (ABNORMAL) ELECTROLYTES (10/24/2004 10:36 EDT) Sodium 142 136 - 145 mEq/L [facility] Comment:Heparinized plasma. Potassium 3.4(L) 3.6 - 5.2 mEq/L [facility] Comment:Heparinized plasma. Chloride 108 96 - 110 mEq/L [facility] Comment:Heparinized plasma. CO2 25 24 - 32 mEq/L [facility] Comment:Heparinized plasma. 10/24/2004 10:3 6 EDT 10/24/2004 10:36 EDT Hilton Álvarez MD CHEMISTRY & BLOOD GAS ORDERABLES Performing Organization Address [facility] de Phone Number [facility] [address] [place] [address] * SODIUM (10/24/2004 8:01 EDT) Sodium 140 136 - 145 mEq/L [facility] 10/24/2004 8:01 EDT 10/24/2004 8:01 EDT Hilton Álvarez MD CHEMISTRY & BLOOD GAS ORDERABLES Performing Organization Address [facility] de Phone Number [facility] [address] [place] [address] * SODIUM (10/24/2004 6:07 EDT) Sodium 136 - 145 mEq/L [facility] 10/24/2004 6:07 EDT 10/24/2004 6:07 EDT Hilton Álvarez MD CHEMISTRY & BLOOD GAS ORDERABLES Performing Organization Address [facility] de Phone Number [facility] [address] [place] [address] * (ABNORMAL) ELECTROLYTES (10/24/2004 6:07 EDT) Sodium 140 136 - 145 mEq/L [facility] Comment:Heparinized plasma. Potassium 3.4(L) 3.6 - 5.2 mEq/L [facility] Comment:Heparinized plasma. Chloride 105 96 - 110 mEq/L [facility] Comment:Heparinized plasma. CO2 27 24 - 32 mEq/L [facility] Comment:Heparinized plasma. 10/24/2004 6:07 EDT 10/24/2004 6:07 EDT Hilton Álvarez MD CHEMISTRY & BLOOD GAS ORDERABLES Performing Organization Address [facility] de Phone Number [facility] [address] [place] [address] * (ABNORMAL) PHENYTOIN (10/24/2004 4:07 EDT) Phenytoin 17.5 ug/ml [facility] Comment:Heparinized plasma. Calculated Phenytoin 25.7(HH) ug/ml [facility] Comment: Calculated phenytoin is adjusted for albumin level. Phenytoin levels may be further altered by severe renal failure (CrCl<10 ml/min). Consult pharmacy for renal or therapeutic dosing questions. Heparinized plasma. 10/24/2004 4:07 EDT 10/24/2004 4:07 EDT Hilton Álvarez MD CHEMISTRY & BLOOD GAS ORDERABLES Performing Organization Address [facility] de Phone Number [facility] [address] [place] [address] * SODIUM (10/24/2004 4:07 EDT) Sodium 138 136 - 145 mEq/L [facility] Comment:Heparinized plasma. 10/24/2004 4:07 EDT 10/24/2004 4:07 EDT Hilton Álvarez MD CHEMISTRY & BLOOD GAS ORDERABLES Performing Organization Address [facility]/ZIP Co de Phone Number [facility] [address] [place] [address] * (ABNORMAL) CREATININE (10/24/2004 4:07 EDT) Pathologist [facility] Creatinine 0.5(L) 0.6 - 1.2 mg/dl [facility] Comment:Heparinized plasma. 10/24/2004 4:07 EDT 10/24/2004 4:07 EDT Hilton Álvarez MD HISTORICAL LAB FOR SQ LOAD Performing Organization Address [facility] de Phone Number [facility] [address] [place] [address] * (ABNORMAL) HEMAGRAM AND DIFFERENTIAL (10/24/2004 4:07 EDT) Pathologist [facility] WBC 7.77 4.5 - 13.0 K/cmm [facility] RBC 3.02(L) 4.50 - 5.30 M/cmm [facility] Hemoglobin 8.7(L) 13.0 - 16.0 gm/dl [facility] HCT 25.0(L) 37.0 - 49.0 % [facility] MCV 83 78 - 98 fl [facility] MCH 28.7 pg [facility] MCHC 34.7 gm/dl [facility] PLT 341(H) 156 - 312 K/cmm [facility] RDW-CV 16.4 % [facility] % Neutrophils 74.2 % [facility] % Lymphocytes 16.4 % [facility] % Monocytes 6.1 % [facility] % Eosinophils 2.1 % [facility] % Basophils 1.2 % [facility] ABS Neutrophils 5.77 K/cmm [facility] Lymphs 1.27 K/cmm [facility] ABS Monocytes 0.48 K/cmm [facility] Eosinophils 0.16 K/cmm [facility] Basophils 0.09 K/cmm [facility] Type of Diff: Automated [facility] 10/24/2004 4:07 EDT 10/24/2004 4:07 EDT Hilton Álvarez MD PACKAGES & DNA PRO BE ORDERABLES Performing Organization Address [facility] Phone Number [facility] [address] [place] [address] * BUN (10/24/2004 4:07 EDT) BUN 15 8 - 21 mg/dl [facility] Comment:Heparinized plasma. 10/24/2004 4:07 EDT 10/24/2004 4:07 EDT Hilton Álvarez MD CHEMISTRY & BLOOD GAS ORDERABLES Performing Organization Address [facility] Phone Number [facility] [address] [place] [address] * (ABNORMAL) ELECTROLYTES (10/24/2004 2:23 EDT) Sodium 140 136 - 145 mEq/L [facility] Comment:Heparinized plasma. Potassium 3.4(L) 3.6 - 5.2 mEq/L [facility] Comment:Heparinized plasma. Chloride 104 96 - 110 mEq/L [facility] Comment:Heparinized plasma. CO2 27 24 - 32 mEq/L [facility] Comment:Heparinized plasma. 10/24/2004 2:23 EDT 10/24/2004 2:23 EDT Hilton Álvarez MD CHEMISTRY & BLOOD GAS ORDERABLES Performing Organization Address [facility] Phone Number [facility] [address] [place] [address] * SODIUM (10/24/2004 2:12 EDT) Sodium 136 - 145 mEq/L [facility] 10/24/2004 2:12 EDT 10/24/2004 2:22 EDT Hilton Álvarez MD CHEMISTRY & BLOOD GAS ORDERABLES Performing Organization Address [facility] Phone Number [facility] [address] [place] [address] * SODIUM (10/24/2004 0:47 EDT) Sodium 141 136 - 145 mEq/L [facility] Comment:Heparinized plasma. 10/24/2004 0:47 EDT 10/24/2004 0:47 EDT Hilton Álvarez MD CHEMISTRY & BLOOD GAS ORDERABLES Performing Organization Address [facility] Phone Number [facility] [address] [place] [address] * (ABNORMAL) GLUCOSE, GLUCOMETER (10/24/2004 0:12 EDT) Glucose, Fingerstick 145(H) 70 - 110 mg/dl [facility] Event Coordinator ID [id number] Test Performed by Nursing Services [facility] 10/24/2004 0:12 EDT 10/25/2004 0:24 EDT Hilton Álvarez MD CHEMISTRY & BLOOD GAS ORDERABLES Performing Organization Address [facility] Phone Number [facility] [address] [place] [address] * (ABNORMAL) ELECTROLYTES (10/23/2004 22:07 EDT) Sodium 141 136 - 145 mEq/L [facility] Potassium 2.9(LL) 3.6 - 5.2 mEq/L [facility] Chloride 107 96 - 110 mEq/L [facility] CO2 27 24 - 32 mEq/L [facility] 10/23/2004 22:0 7 EDT 10/23/2004 22:07 EDT Hilton Álvarez MD CHEMISTRY & BLOOD GAS ORDERABLES Performing Organization Address [facility] de Phone Number [facility] [address] [place] [address] * (ABNORMAL) SODIUM (10/23/2004 20:02 EDT) Sodium 146(H) 136 - 145 mEq/L [facility] 10/23/2004 20:0 2 EDT 10/23/2004 20:02 EDT Hilton Álvarez MD CHEMISTRY & BLOOD GAS ORDERABLES Performing Organization Address [facility] de Phone Number [facility] [address] [place] [address] * (ABNORMAL) ELECTROLYTES (10/23/2004 17:40 EDT) Sodium 146(H) 136 - 145 mEq/L [facility] Potassium 3.2(L) 3.6 - 5.2 mEq/L [facility] Chloride 110 96 - 110 mEq/L [facility] CO2 28 24 - 32 mEq/L [facility] 10/23/2004 17:4 0 EDT 10/23/2004 17:40 EDT Hilton Álvarez MD CHEMISTRY & BLOOD GAS ORDERABLES Performing Organization Address [facility] de Phone Number [facility] [address] [place] [address] * CT HEAD WO CONTRAST (10/23/2004 15:29 EDT) Anatomical Region Laterality Modality Other 10/23/2004 15:2 9 EDT Impressions 03/06/2009 9:26 EDT IMPRESSION: Evolution/resolution of previously noted postsurgical changes with the scans overall not significantly different than prior evaluation, specifically, no hydrocephalus seen. There does appear to be some soft tissue in the superior right orbit which may be some postoperative hemorrhage or fluid, but this is also unchanged since previous, as is the sinus thickening. /kec Narrative 03/06/2009 9:26 EDT H/O AKINETIC MUTISM S/P CRANI R/O HYDRO CT BRAIN DONE WITHOUT CONTRAST COMPARISON: 10/17/04. Bone windows show considerable sinus thickening/opacification which is not grossly different from prior studies. There may be some hemorrhage in the superior right orbit in the region of the previous surgery which was also seen previously as well. There are once again noted to be postsurgical changes in the sellar and suprasellar regions with areas of low density in the anterior thalami, larger on the right, which are now smaller than previous, consistent with some focal areas of resolving edema or ischemic change. There are no new hemorrhages identified. No other new focal abnormalities. Specifically, no evidence of hydrocephalus was seen with ventricles not grossly different than prior study and sulci actually slightly more prominent, in keeping with interval resolution of intracranial edema. Procedure Note AlsofrJose Armando noel MD - 03/06/2009 H/O AKINETIC MUTISM S/P CRANI R/O HYDRO CT BRAIN DONE WITHOUT CONTRAST COMPARISON: 10/17/04. Bone windows show considerable sinus thickening/opacification which is not grossly different from prior studies. There may be some hemorrhage in the superior right orbit in the region of the previous surgery which was also seen previously as well. There are once again noted to be postsurgical changes in the sellar and suprasellar regions with areas of low density in the anterior thalami, larger on the right, which are now smaller than previous, consistent with some focal areas of resolving edema or ischemic change. There are no new hemorrhages identified. No other new focal abnormalities. Specifically, no evidence of hydrocephalus was seen with ventricles not grossly different than prior study and sulci actually slightly more prominent, in keeping with interval resolution of intracranial edema. IMPRESSION IMPRESSION: Evolution/resolution of previously noted postsurgical changes with the scans overall not significantly different than prior evaluation, specifically, no hydrocephalus seen. There does appear to be some soft tissue in the superior right orbit which may be some postoperative hemorrhage or fluid, but this is also unchanged since previous, as is the sinus thickening. /[facility] Hilton Álvarez MD IM CT ORDERABLES * PHENYTOIN (10/23/2004 14:07 EDT) Phenytoin 4.1 ug/ml [facility] Comment:Slight hemolysis Calculated Phenytoin 6.8 ug/ml [facility] Comment: Calculated phenytoin is adjusted for albumin level. Phenytoin levels may be further altered by severe renal failure (CrCl<10 ml/min). Consult pharmacy for renal or therapeutic dosing questions. Slight hemolysis 10/23/2004 14:0 7 EDT 10/23/2004 14:07 EDT Hilton Álvarez MD CHEMISTRY & BLOOD GAS ORDERABLES Performing Organization Address [facility] de Phone Number [facility] [address] [place] [address] * (ABNORMAL) SODIUM (10/23/2004 14:07 EDT) Sodium 146(H) 136 - 145 mEq/L [facility] Comment:Slight hemolysis 10/23/2004 14:0 7 EDT 10/23/2004 14:07 EDT Hilton Álvarez MD CHEMISTRY & BLOOD GAS ORDERABLES Performing Organization Address [facility] Phone Number [facility] [address] [place] [address] * (ABNORMAL) ELECTROLYTES (10/23/2004 11:54 EDT) Sodium 149(H) 136 - 145 mEq/L [facility] Comment:Heparinized plasma. Potassium 3.6 3.6 - 5.2 mEq/L [facility] Comment:Heparinized plasma. Chloride 115(H) 96 - 110 mEq/L [facility] Comment:Heparinized plasma. CO2 26 24 - 32 mEq/L [facility] Comment:Heparinized plasma. 10/23/2004 11:5 4 EDT 10/23/2004 11:54 EDT Hilton Álvarez MD CHEMISTRY & BLOOD GAS ORDERABLES Performing Organization Address [facility] de Phone Number [facility] [address] [place] [address] * (ABNORMAL) SODIUM (10/23/2004 10:00 EDT) Sodium 149(H) 136 - 145 mEq/L [facility] Comment:Heparinized plasma. 10/23/2004 10:0 0 EDT 10/23/2004 10:00 EDT Hilton Álvarez MD CHEMISTRY & BLOOD GAS ORDERABLES Performing Organization Address [facility] Co de Phone Number [facility] [address] [place] [address] * (ABNORMAL) ELECTROLYTES (10/23/2004 7:51 EDT) Sodium 149(H) 136 - 145 mEq/L [facility] Potassium 3.3(L) 3.6 - 5.2 mEq/L [facility] Chloride 116(H) 96 - 110 mEq/L [facility] CO2 26 24 - 32 mEq/L [facility] 10/23/2004 7:51 EDT 10/23/2004 7:51 EDT Hilton Álvarez MD CHEMISTRY & BLOOD GAS ORDERABLES Performing Organization Address [facility] de Phone Number [facility] [address] [place] [address] * (ABNORMAL) SODIUM (10/23/2004 6:00 EDT) Sodium 150(H) 136 - 145 mEq/L [facility] 10/23/2004 6:00 EDT 10/23/2004 6:21 EDT Hilton Álvarez MD CHEMISTRY & BLOOD GAS ORDERABLES Performing Organization Address [facility] de Phone Number [facility] [address] [place] [address] * (ABNORMAL) ELECTROLYTES (10/23/2004 4:00 EDT) Sodium 150(H) 136 - 145 mEq/L [facility] Potassium 3.6 3.6 - 5.2 mEq/L [facility] Chloride 118(H) 96 - 110 mEq/L [facility] CO2 26 24 - 32 mEq/L [facility] 10/23/2004 4:00 EDT 10/23/2004 4:17 EDT Hilton Álvarez MD CHEMISTRY & BLOOD GAS ORDERABLES Performing Organization Address [facility] Co de Phone Number [facility] [address] [place] [address] * (ABNORMAL) CREATININE (10/23/2004 4:00 EDT) Creatinine 0.5(L) 0.6 - 1.2 mg/dl [facility] 10/23/2004 4:00 EDT 10/23/2004 4:17 EDT Hilton Álvarez MD HISTORICAL LAB FOR SQ LOAD Performing Organization Address [facility] de Phone Number [facility] [address] [place] [address] * (ABNORMAL) HEMAGRAM AND DIFFERENTIAL (10/23/2004 4:00 EDT) WBC 7.67 4.5 - 13.0 K/cmm [facility] RBC 3.17(L) 4.50 - 5.30 M/cmm [facility] Hemoglobin 9.1(L) 13.0 - 16.0 gm/dl [facility] HCT 26.5(L) 37.0 - 49.0 % [facility] MCV 84 78 - 98 fl [facility] MCH 28.5 pg [facility] MCHC 34.1 gm/dl [facility] PLT 366(H) 156 - 312 K/cmm [facility] RDW-CV 16.6 % [facility] Neutrophils 78.0 % [facility] Lymphocytes 16.0 % [facility] Monocytes 2.0 % [facility] Basophils 4.0 % [facility] ABS Neutrophils 5.98 K/cmm [facility] Lymphs 1.23 K/cmm [facility] ABS Monocytes 0.15 K/cmm [facility] Basophils 0.31 K/cmm [facility] RBC Morphology 1+ Anisocytosis 1+ Microcytes [facility] Type of Diff: Manual [facility] 10/23/2004 4:00 EDT 10/23/2004 4:17 EDT Hilton Álvarez MD PACKAGES & DNA PRO BE ORDERABLES Performing Organization Address [facility] de Phone Number [facility] [address] [place] [address] * BUN (10/23/2004 4:00 EDT) BUN 16 8 - 21 mg/dl [facility] 10/23/2004 4:00 EDT 10/23/2004 4:17 EDT Hilton Álvarez MD CHEMISTRY & BLOOD GAS ORDERABLES Performing Organization Address [facility] Phone Number [facility] [address] [place] [address] * (ABNORMAL) SODIUM (10/23/2004 2:00 EDT) Sodium 153(H) 136 - 145 mEq/L [facility] 10/23/2004 2:00 EDT 10/23/2004 2:13 EDT Hilton Álvarez MD CHEMISTRY & BLOOD GAS ORDERABLES Performing Organization Address [facility] de Phone Number [facility] [address] [place] [address] * (ABNORMAL) ELECTROLYTES (10/23/2004 0:00 EDT) Sodium 151(H) 136 - 145 mEq/L [facility] Potassium 3.9 3.6 - 5.2 mEq/L [facility] Chloride 117(H) 96 - 110 mEq/L [facility] CO2 27 24 - 32 mEq/L [facility] 10/23/2004 10/23/2004 0:3 8 EDT Hilton Álvarez MD CHEMISTRY & BLOOD GAS ORDERABLES Performing Organization Address [facility] Co de Phone Number [facility] [address] [place] [address] * (ABNORMAL) SODIUM (10/22/2004 21:59 EDT) Sodium 149(H) 136 - 145 mEq/L [facility] 10/22/2004 21:5 9 EDT 10/22/2004 21:59 EDT Hilton Álvarez MD CHEMISTRY & BLOOD GAS ORDERABLES Performing Organization Address [facility] de Phone Number [facility] [address] [place] [address] * (ABNORMAL) ELECTROLYTES (10/22/2004 20:23 EDT) Sodium 151(H) 136 - 145 mEq/L [facility] Potassium 3.8 3.6 - 5.2 mEq/L [facility] Chloride 117(H) 96 - 110 mEq/L [facility] CO2 28 24 - 32 mEq/L [facility] 10/22/2004 20:2 3 EDT 10/22/2004 20:23 EDT Hilton Álvarez MD CHEMISTRY & BLOOD GAS ORDERABLES Performing Organization Address [facility] Co de Phone Number [facility] [address] [place] [address] * (ABNORMAL) SODIUM (10/22/2004 18:05 EDT) Sodium 147(H) 136 - 145 mEq/L [facility] 10/22/2004 18:0 5 EDT 10/22/2004 18:09 EDT Hilton Álvarez MD CHEMISTRY & BLOOD GAS ORDERABLES Performing Organization Address [facility] Co de Phone Number [facility] [address] [place] [address] * (ABNORMAL) ELECTROLYTES (10/22/2004 16:40 EDT) Sodium 148(H) 136 - 145 mEq/L [facility] Potassium 3.4(L) 3.6 - 5.2 mEq/L [facility] Chloride 120(H) 96 - 110 mEq/L [facility] CO2 24 24 - 32 mEq/L [facility] 10/22/2004 16:4 0 EDT 10/22/2004 16:43 EDT Hilton Álvarez MD CHEMISTRY & BLOOD GAS ORDERABLES Performing Organization Address [facility] de Phone Number [facility] [address] [place] [address] * TRIGLYCERIDE (10/22/2004 14:10 EDT) Triglycerides 164 34 - 165 mg/dl [facility] Comment:Heparinized plasma. 10/22/2004 14:1 0 EDT 10/22/2004 14:16 EDT Hilton Álvarez MD CHEMISTRY & BLOOD GAS ORDERABLES Performing Organization Address [facility] de Phone Number [facility] [address] [place] [address] * (ABNORMAL) SODIUM (10/22/2004 14:10 EDT) Sodium 147(H) 136 - 145 mEq/L [facility] Comment:Heparinized plasma. 10/22/2004 14:1 0 EDT 10/22/2004 14:16 EDT Hilton Álvarez MD CHEMISTRY & BLOOD GAS ORDERABLES Performing Organization Address [facility] de Phone Number [facility] [address] [place] [address] * OSMOLALITY, URINE (10/22/2004 12:50 EDT) Osmolality, Ur 864 MOS/KG [facility] 10/22/2004 12:5 0 EDT 10/22/2004 12:52 EDT Hilton Álvarez MD URINALYSIS ORDERAB LES Performing Organization Address [facility]/ZIP Co de Phone Number [facility] [address] [place] [address] * SODIUM, URINE RANDOM (10/22/2004 12:50 EDT) Sodium, Ur 191.0 mEq/L [facility] 10/22/2004 12:5 0 EDT 10/22/2004 12:52 EDT Hilton Álvarez MD URINALYSIS ORDERAB LES Performing Organization Address [facility] Co de Phone Number [facility] [address] [place] [address] * (ABNORMAL) GLUCOSE, GLUCOMETER (10/22/2004 12:16 EDT) [facility] Glucose, Fingerstick 124(H) 70 - 110 mg/dl [facility] Event Coordinator ID [id number] Test Performed by Nursing Services [facility] 10/22/2004 12:1 6 EDT 10/23/2004 0:41 EDT Hilton Álvarez MD CHEMISTRY & BLOOD GAS ORDERABLES Performing Organization Address [facility] Co de Phone Number [facility] [address] [place] [address] * (ABNORMAL) T4 FREE (10/22/2004 12:05 EDT) Free T4 0.5(L) 0.8 - 1.8 ng/dl [facility] Comment:Test added by phone 10/22/2004 12:0 5 EDT 10/22/2004 14:04 EDT Hilton Álvarez MD CHEMISTRY & BLOOD GAS ORDERABLES Performing Organization Address [facility] Co de Phone Number [facility] [address] [place] [address] * (ABNORMAL) ELECTROLYTES (10/22/2004 12:05 EDT) Sodium 147(H) 136 - 145 mEq/L [facility] Potassium 3.6 3.6 - 5.2 mEq/L [facility] Chloride 116(H) 96 - 110 mEq/L [facility] CO2 25 24 - 32 mEq/L [facility] 10/22/2004 12:0 5 EDT 10/22/2004 12:19 EDT Hilton Álvarez MD CHEMISTRY & BLOOD GAS ORDERABLES Performing Organization Address [facility] Co de Phone Number [facility] [address] [place] [address] * T4 FREE (10/22/2004 12:05 EDT) Free T4 Testing cannot be performed on heparinized samples. 0.8 - 1.8 ng/dl [facility] 10/22/2004 12:0 5 EDT 10/22/2004 12:19 EDT Hilton Álvarez MD CHEMISTRY & BLOOD GAS ORDERABLES Performing Organization Address [facility] de Phone Number [facility] [address] [place] [address] * TESTS ADDED BY PHONE (10/22/2004 12:05 EDT) Tests to be added FT4 [facility] 10/22/2004 12:0 5 EDT 10/22/2004 12:19 EDT Hilton Álvarez MD CHEMISTRY & BLOOD GAS ORDERABLES Performing Organization Address [facility] Co de Phone Number [facility] [address] [place] [address] * (ABNORMAL) SODIUM (10/22/2004 10:00 EDT) Sodium 148(H) 136 - 145 mEq/L [facility] 10/22/2004 10:0 0 EDT 10/22/2004 10:03 EDT Hilton Álvarez MD CHEMISTRY & BLOOD GAS ORDERABLES Performing Organization Address [facility] de Phone Number [facility] [address] [place] [address] * (ABNORMAL) ELECTROLYTES (10/22/2004 8:10 EDT) Sodium 147(H) 136 - 145 mEq/L [facility] Comment:Heparinized plasma. Potassium 3.6 3.6 - 5.2 mEq/L [facility] Comment:Heparinized plasma. Chloride 115(H) 96 - 110 mEq/L [facility] Comment:Heparinized plasma. CO2 25 24 - 32 mEq/L [facility] Comment:Heparinized plasma. 10/22/2004 8:10 EDT 10/22/2004 8:19 EDT Hilton Álvarez MD CHEMISTRY & BLOOD GAS ORDERABLES Performing Organization Address [facility] Phone Number [facility] [address] [place] [address] * T4 FREE (10/22/2004 8:10 EDT) Free T4 Testing cannot be performed on heparinized samples. 0.8 - 1.8 ng/dl [facility] 10/22/2004 8:10 EDT 10/22/2004 8:19 EDT Hilton Álvarez MD CHEMISTRY & BLOOD GAS ORDERABLES Performing Organization Address [facility] de Phone Number [facility] [address] [place] [address] * TESTS ADDED BY PHONE (10/22/2004 8:10 EDT) Tests to be added FT4 [facility] 10/22/2004 8:10 EDT 10/22/2004 8:19 EDT Hilton Álvarez MD CHEMISTRY & BLOOD GAS ORDERABLES Performing Organization Address [facility] de Phone Number [facility] [address] [place] [address] * (ABNORMAL) SODIUM (10/22/2004 6:05 EDT) Sodium 149(H) 136 - 145 mEq/L [facility] 10/22/2004 6:05 EDT 10/22/2004 6:05 EDT Hilton Álvarez MD CHEMISTRY & BLOOD GAS ORDERABLES Performing Organization Address [facility] Phone Number [facility] [address] [place] [address] * TOTAL BILIRUBIN (10/22/2004 4:15 EDT) Bilirubin, Total <0.5 0.0 - 1.4 mg/dl [facility] Comment:Heparinized plasma. 10/22/2004 4:15 EDT 10/22/2004 4:15 EDT Hilton Álvarez MD CHEMISTRY & BLOOD GAS ORDERABLES Performing Organization Address [facility] Phone Number [facility] [address] [place] [address] * GLUCOSE, SERUM (10/22/2004 4:15 EDT) Glucose, Serum 104 70 - 110 mg/dl [facility] Comment:Heparinized plasma. 10/22/2004 4:15 EDT 10/22/2004 4:15 EDT Hilton Álvarez MD CHEMISTRY & BLOOD GAS ORDERABLES Performing Organization Address [facility] de Phone Number [facility] [address] [place] [address] * (ABNORMAL) PHOSPHORUS (10/22/2004 4:15 EDT) Phosphorus 2.8(L) 2.9 - 5.4 mg/dl [facility] Comment:Heparinized plasma. 10/22/2004 4:15 EDT 10/22/2004 4:15 EDT Hilton Álvarez MD CHEMISTRY & BLOOD GAS ORDERABLES Performing Organization Address [facility] de Phone Number [facility] [address] [place] [address] * MAGNESIUM (10/22/2004 4:15 EDT) Magnesium 2.6 1.7 - 2.8 mg/dl [facility] Comment:Heparinized plasma. 10/22/2004 4:15 EDT 10/22/2004 4:15 EDT Hilton Álvarez MD CHEMISTRY & BLOOD GAS ORDERABLES Performing Organization Address [facility] de Phone Number [facility] [address] [place] [address] * (ABNORMAL) ELECTROLYTES (10/22/2004 4:15 EDT) Sodium 148(H) 136 - 145 mEq/L [facility] Comment:Heparinized plasma. Potassium 3.7 3.6 - 5.2 mEq/L [facility] Comment:Heparinized plasma. Chloride 115(H) 96 - 110 mEq/L [facility] Comment:Heparinized plasma. CO2 25 24 - 32 mEq/L [facility] Comment:Heparinized plasma. 10/22/2004 4:15 EDT 10/22/2004 4:15 EDT Hilton Álvarez MD CHEMISTRY & BLOOD GAS ORDERABLES Performing Organization Address [facility] de Phone Number [facility] [address] [place] [address] * (ABNORMAL) CREATININE (10/22/2004 4:15 EDT) Creatinine 0.5(L) 0.6 - 1.2 mg/dl [facility] Comment:Heparinized plasma. 10/22/2004 4:15 EDT 10/22/2004 4:15 EDT Hilton Álvarez MD HISTORICAL LAB FOR SQ LOAD Performing Organization Address [facility] de Phone Number [facility] [address] [place] [address] * (ABNORMAL) HEMAGRAM AND DIFFERENTIAL (10/22/2004 4:15 EDT) Pathologist [facility] WBC 6.26 4.5 - 13.0 K/cmm [facility] RBC 3.29(L) 4.50 - 5.30 M/cmm [facility] Hemoglobin 9.4(L) 13.0 - 16.0 gm/dl [facility] HCT 26.8(L) 37.0 - 49.0 % [facility] MCV 81 78 - 98 fl [facility] MCH 28.4 pg [facility] MCHC 34.9 gm/dl [facility] PLT 417(H) 156 - 312 K/cmm [facility] RDW-CV 15.8 % [facility] % Neutrophils 67.8 % [facility] % Lymphocytes 18.9 % [facility] % Monocytes 9.6 % [facility] % Eosinophils 2.1 % [facility] % Basophils 1.6 % [facility] ABS Neutrophils 4.24 K/cmm [facility] ABS Lymphs 1.18 K/cmm [facility] ABS Monocytes 0.60 K/cmm [facility] ABS Eosinophils 0.13 K/cmm [facility] ABS Basophils 0.10 K/cmm [facility] Type of Diff: Automated [facility] 10/22/2004 4:15 EDT 10/22/2004 4:15 EDT Hilton Álvarez MD PACKAGES & DNA PRO BE ORDERABLES [facility] [address] [place] [address] * (ABNORMAL) CALCIUM (10/22/2004 4:15 EDT) Pathologist [facility] Calcium 7.6(L) 8.5 - 10.5 mg/dl [facility] Comment:Heparinized plasma. Calculated Calcium 9.0 8.5 - 10.5 mg/dl [facility] Comment:Heparinized plasma. 10/22/2004 4:15 EDT 10/22/2004 4:15 EDT Hilton Álvarez MD CHEMISTRY & BLOOD GAS ORDERABLES Performing Organization Address [facility] Phone Number [facility] [address] [place] [address] * BUN (10/22/2004 4:15 EDT) BUN 15 8 - 21 mg/dl [facility] Comment:Heparinized plasma. 10/22/2004 4:15 EDT 10/22/2004 4:15 EDT Hilton Álvarez MD CHEMISTRY & BLOOD GAS ORDERABLES Performing Organization Address [facility] Phone Number [facility] [address] [place] [address] * (ABNORMAL) AST (10/22/2004 4:15 EDT) AST 91(H) 16 - 38 U/L [facility] Comment: Sample retested, result confirmed Heparinized plasma. 10/22/2004 4:15 EDT 10/22/2004 4:15 EDT Hilton Álvarez MD CHEMISTRY & BLOOD GAS ORDERABLES Performing Organization Address [facility] Phone Number [facility] [address] [place] [address] * (ABNORMAL) ALT (10/22/2004 4:15 EDT) ALT 222(H) 10 - 45 U/L [facility] Comment: Sample retested, result confirmed Heparinized plasma. 10/22/2004 4:15 EDT 10/22/2004 4:15 EDT Hilton Álvarez MD CHEMISTRY & BLOOD GAS ORDERABLES Performing Organization Address [facility] de Phone Number [facility] [address] [place] [address] * (ABNORMAL) ALKALINE PHOSPHATASE (10/22/2004 4:15 EDT) Total Alkaline Phosphatase 92(L) 130 - 525 U/L [facility] Comment:Heparinized plasma. 10/22/2004 4:15 EDT 10/22/2004 4:15 EDT Hilton Álvarez MD CHEMISTRY & BLOOD GAS ORDERABLES Performing Organization Address [facility] Phone Number [facility] [address] [place] [address] * SODIUM (10/22/2004 1:58 EDT) Sodium 144 136 - 145 mEq/L [facility] Comment:Heparinized plasma. 10/22/2004 1:58 EDT 10/22/2004 1:58 EDT Hilton Álvarez MD CHEMISTRY & BLOOD GAS ORDERABLES Performing Organization Address [facility] Phone Number [facility] [address] [place] [address] * ELECTROLYTES (10/22/2004 0:05 EDT) Sodium 140 136 - 145 mEq/L [facility] Comment:Heparinized plasma. Potassium 3.8 3.6 - 5.2 mEq/L [facility] Comment:Heparinized plasma. Chloride 104 96 - 110 mEq/L [facility] Comment:Heparinized plasma. CO2 28 24 - 32 mEq/L [facility] Comment:Heparinized plasma. 10/22/2004 0:05 EDT 10/22/2004 0:05 EDT Hilton Álvarez MD CHEMISTRY & BLOOD GAS ORDERABLES Performing Organization Address [facility] Phone Number [facility] [address] [place] [address] * (ABNORMAL) GLUCOSE, GLUCOMETER (10/22/2004 0:01 EDT) Glucose, Fingerstick 132(H) 70 - 110 mg/dl [facility] Event Coordinator ID [id number] Test Performed by Nursing Services [facility] 10/22/2004 0:01 EDT 10/23/2004 1:02 EDT Hilton Álvarez MD CHEMISTRY & BLOOD GAS ORDERABLES Performing Organization Address [facility] Co de Phone Number [facility] [address] [place] [address] * SODIUM (10/21/2004 22:04 EDT) Sodium 137 136 - 145 mEq/L [facility] 10/21/2004 22:0 4 EDT 10/21/2004 22:04 EDT Hilton Álvarez MD CHEMISTRY & BLOOD GAS ORDERABLES Performing Organization Address [facility] Co de Phone Number [facility] [address] [place] [address] * (ABNORMAL) GLUCOSE, GLUCOMETER (10/21/2004 21:59 EDT) Glucose, Fingerstick 121(H) 70 - 110 mg/dl [facility] Event Coordinator ID [id number] Test Performed by Nursing Services [facility] 10/21/2004 21:5 9 EDT 10/22/2004 0:20 EDT Hilton Álvarez MD CHEMISTRY & BLOOD GAS ORDERABLES Performing Organization Address [facility] Phone Number [facility] [address] [place] [address] * (ABNORMAL) ELECTROLYTES (10/21/2004 19:46 EDT) Sodium 138 136 - 145 mEq/L [facility] Comment:Heparinized plasma. Potassium 3.4(L) 3.6 - 5.2 mEq/L [facility] Comment:Heparinized plasma. Chloride 104 96 - 110 mEq/L [facility] Comment:Heparinized plasma. CO2 26 24 - 32 mEq/L [facility] Comment:Heparinized plasma. 10/21/2004 19:4 6 EDT 10/21/2004 19:51 EDT Hilton Álvarez MD CHEMISTRY & BLOOD GAS ORDERABLES Performing Organization Address [facility] de Phone Number [facility] [address] [place] [address] * (ABNORMAL) GLUCOSE, GLUCOMETER (10/21/2004 18:19 EDT) Glucose, Fingerstick 129(H) 70 - 110 mg/dl [facility] Event Coordinator ID [id number] Test Performed by Nursing Services [facility] 10/21/2004 18:1 9 EDT 10/22/2004 0:26 EDT Hilton Álvarez MD CHEMISTRY & BLOOD GAS ORDERABLES Performing Organization Address [facility] de Phone Number [facility] [address] [place] [address] * SODIUM (10/21/2004 18:18 EDT) Sodium 138 136 - 145 mEq/L [facility] 10/21/2004 18:1 8 EDT 10/21/2004 18:23 EDT Hilton Álvarez MD CHEMISTRY & BLOOD GAS ORDERABLES Performing Organization Address [facility] de Phone Number [facility] [address] [place] [address] * ELECTROLYTES (10/21/2004 15:58 EDT) Sodium 138 136 - 145 mEq/L [facility] Comment:Heparinized plasma. Potassium 3.8 3.6 - 5.2 mEq/L [facility] Comment:Heparinized plasma. Chloride 101 96 - 110 mEq/L [facility] Comment:Heparinized plasma. CO2 28 24 - 32 mEq/L [facility] Comment:Heparinized plasma. 10/21/2004 15:5 8 EDT 10/21/2004 15:59 EDT Hilton Álvarez MD CHEMISTRY & BLOOD GAS ORDERABLES Performing Organization Address [facility] de Phone Number [facility] [address] [place] [address] * (ABNORMAL) SODIUM (10/21/2004 14:13 EDT) Sodium 132(L) 136 - 145 mEq/L [facility] Comment:Heparinized plasma. 10/21/2004 14:1 3 EDT 10/21/2004 14:13 EDT Hilton Álvarez MD CHEMISTRY & BLOOD GAS ORDERABLES Performing Organization Address [facility] de Phone Number [facility] [address] [place] [address] * (ABNORMAL) GLUCOSE, GLUCOMETER (10/21/2004 14:07 EDT) Glucose, Fingerstick 116(H) 70 - 110 mg/dl [facility] Event Coordinator ID [id number] Test Performed by Nursing Services [facility] 10/21/2004 14:0 7 EDT 10/22/2004 0:24 EDT Hilton Álvarez MD CHEMISTRY & BLOOD GAS ORDERABLES Performing Organization Address [facility] de Phone Number [facility] [address] [place] [address] * (ABNORMAL) ELECTROLYTES (10/21/2004 12:00 EDT) Sodium 131(L) 136 - 145 mEq/L [facility] Potassium 4.0 3.6 - 5.2 mEq/L [facility] Chloride 98 96 - 110 mEq/L [facility] CO2 27 24 - 32 mEq/L [facility] 10/21/2004 12:0 0 EDT 10/21/2004 12:07 EDT Hilton Álvarez MD CHEMISTRY & BLOOD GAS ORDERABLES Performing Organization Address [facility] de Phone Number [facility] [address] [place] [address] * (ABNORMAL) SODIUM (10/21/2004 10:00 EDT) Sodium 133(L) 136 - 145 mEq/L [facility] Comment:Heparinized plasma. 10/21/2004 10:0 0 EDT 10/21/2004 10:05 EDT Hilton Álvarez MD CHEMISTRY & BLOOD GAS ORDERABLES Performing Organization Address [facility] Phone Number [facility] [address] [place] [address] * (ABNORMAL) GLUCOSE, GLUCOMETER (10/21/2004 8:10 EDT) Glucose, Fingerstick 111(H) 70 - 110 mg/dl [facility] Event Coordinator ID [id number] Test Performed by Nursing Services [facility] 10/21/2004 8:10 EDT 10/22/2004 0:22 EDT Hilton Álvarez MD CHEMISTRY & BLOOD GAS ORDERABLES Performing Organization Address [facility] Phone Number [facility] [address] [place] [address] * (ABNORMAL) ELECTROLYTES (10/21/2004 8:00 EDT) Sodium 132(L) 136 - 145 mEq/L [facility] Comment:Heparinized plasma. Potassium 4.0 3.6 - 5.2 mEq/L [facility] Comment:Heparinized plasma. Chloride 98 96 - 110 mEq/L [facility] Comment:Heparinized plasma. CO2 29 24 - 32 mEq/L [facility] Comment:Heparinized plasma. 10/21/2004 8:00 EDT 10/21/2004 8:16 EDT Hilton Álvarez MD CHEMISTRY & BLOOD GAS ORDERABLES Performing Organization Address [facility] de Phone Number [facility] [address] [place] [address] * (ABNORMAL) SODIUM (10/21/2004 6:05 EDT) Sodium 133(L) 136 - 145 mEq/L [facility] 10/21/2004 6:05 EDT 10/21/2004 6:05 EDT Hilton Álvarez MD CHEMISTRY & BLOOD GAS ORDERABLES Performing Organization Address [facility] de Phone Number [facility] [address] [place] [address] * (ABNORMAL) GLUCOSE, GLUCOMETER (10/21/2004 4:06 EDT) Glucose, Fingerstick 123(H) 70 - 110 mg/dl [facility] Event Coordinator ID [id number] Test Performed by Nursing Services [facility] 10/21/2004 4:06 EDT 10/22/2004 0:11 EDT Hilton Álvarez MD CHEMISTRY & BLOOD GAS ORDERABLES Performing Organization Address [facility] de Phone Number [facility] [address] [place] [address] * (ABNORMAL) ELECTROLYTES (10/21/2004 4:06 EDT) Sodium 133(L) 136 - 145 mEq/L [facility] Potassium 4.0 3.6 - 5.2 mEq/L [facility] Chloride 98 96 - 110 mEq/L [facility] CO2 28 24 - 32 mEq/L [facility] 10/21/2004 4:06 EDT 10/21/2004 4:06 EDT Hilton Álvarez MD CHEMISTRY & BLOOD GAS ORDERABLES Performing Organization Address [facility] de Phone Number [facility] [address] [place] [address] * CREATININE (10/21/2004 4:06 EDT) Creatinine 0.7 0.6 - 1.2 mg/dl [facility] 10/21/2004 4:06 EDT 10/21/2004 4:06 EDT Hilton Álvarez MD HISTORICAL LAB FOR SQ LOAD Performing Organization Address City/[facility]/ZIP Co de Phone Number [facility] [address] [place] [address] * (ABNORMAL) HEMAGRAM AND DIFFERENTIAL (10/21/2004 4:06 EDT) WBC 10.25 4.5 - 13.0 K/cmm [facility] RBC 3.52(L) 4.50 - 5.30 M/cmm [facility] Hemoglobin 10.1(L) 13.0 - 16.0 gm/dl [facility] HCT 29.0(L) 37.0 - 49.0 % [facility] MCV 83 78 - 98 fl [facility] MCH 28.8 pg [facility] MCHC 34.8 gm/dl [facility] PLT 415(H) 156 - 312 K/cmm [facility] RDW-CV 16.0 % [facility] Neutrophils 66.0 % [facility] Lymphocytes 29.0 % [facility] Monocytes 2.0 % [facility] Basophils 1.0 % [facility] % Metamyelocytes 2.0 % [facility] ABS Neutrophils 6.76 K/cmm [facility] ABS Lymphs 2.97 K/cmm [facility] ABS Monocytes 0.21 K/cmm [facility] ABS Basophils 0.10 K/cmm [facility] ABS Metamyelocytes 0.21 K/cmm [facility] RBC Morphology 1+ Anisocytosis 1+ Poikilocytosis 1+ Microcytes 1+ Teardrop cells [facility] WBC Morphology 1+ Smudge cells [facility] Type of Diff: Manual [facility] 10/21/2004 4:06 EDT 10/21/2004 4:06 EDT Hilton Álvarez MD PACKAGES & DNA PRO BE ORDERABLES Performing Organization Address City/[facility]/ZIP Co de Phone Number [facility] [address] [place] [address] * BUN (10/21/2004 4:06 EDT) BUN 13 8 - 21 mg/dl [facility] 10/21/2004 4:06 EDT 10/21/2004 4:06 EDT Hilton Álvarez MD CHEMISTRY & BLOOD GAS ORDERABLES Performing Organization Address [facility] Phone Number [facility] [address] [place] [address] * (ABNORMAL) SODIUM (10/21/2004 2:01 EDT) Sodium 134(L) 136 - 145 mEq/L [facility] 10/21/2004 2:01 EDT 10/21/2004 2:01 EDT Hilton Álvarez MD CHEMISTRY & BLOOD GAS ORDERABLES Performing Organization Address [facility] Phone Number [facility] [address] [place] [address] * SODIUM (10/20/2004 22:07 EDT) Sodium 140 136 - 145 mEq/L [facility] 10/20/2004 22:0 7 EDT 10/20/2004 22:07 EDT Hilton Álvarez MD CHEMISTRY & BLOOD GAS ORDERABLES Performing Organization Address [facility] Phone Number [facility] [address] [place] [address] * (ABNORMAL) GLUCOSE, GLUCOMETER (10/20/2004 22:00 EDT) Glucose, Fingerstick 151(H) 70 - 110 mg/dl [facility] Event Coordinator ID [id number] Test Performed by Nursing Services [facility] 10/20/2004 22:0 0 EDT 10/20/2004 23:06 EDT Hilton Álvarez MD CHEMISTRY & BLOOD GAS ORDERABLES Performing Organization Address [facility] de Phone Number [facility] [address] [place] [address] * ELECTROLYTES (10/20/2004 20:08 EDT) Sodium 136 136 - 145 mEq/L [facility] Potassium 3.8 3.6 - 5.2 mEq/L [facility] Chloride 101 96 - 110 mEq/L [facility] CO2 28 24 - 32 mEq/L [facility] 10/20/2004 20:0 8 EDT 10/20/2004 20:08 EDT Hilton Álvarez MD CHEMISTRY & BLOOD GAS ORDERABLES Performing Organization Address [facility] Co de Phone Number [facility] [address] [place] [address] * (ABNORMAL) GLUCOSE, GLUCOMETER (10/20/2004 20:05 EDT) Glucose, Fingerstick 219(H) 70 - 110 mg/dl [facility] Event Coordinator ID [id number] Test Performed by Nursing Services [facility] 10/20/2004 20:0 5 EDT 10/20/2004 21:43 EDT Hilton Álvarez MD CHEMISTRY & BLOOD GAS ORDERABLES Performing Organization Address [facility] de Phone Number [facility] [address] [place] [address] * SODIUM (10/20/2004 18:00 EDT) Sodium 140 136 - 145 mEq/L [facility] 10/20/2004 18:0 0 EDT 10/20/2004 18:07 EDT Hilton Álvarez MD CHEMISTRY & BLOOD GAS ORDERABLES Performing Organization Address [facility] Co de Phone Number [facility] [address] [place] [address] * (ABNORMAL) ELECTROLYTES (10/20/2004 16:00 EDT) Sodium 141 136 - 145 mEq/L [facility] Comment:Heparinized plasma. Potassium 3.2(L) 3.6 - 5.2 mEq/L [facility] Comment:Heparinized plasma. Chloride 110 96 - 110 mEq/L [facility] Comment:Heparinized plasma. CO2 25 24 - 32 mEq/L [facility] Comment:Heparinized plasma. 10/20/2004 16:0 0 EDT 10/20/2004 16:22 EDT Hilton Álvarez MD CHEMISTRY & BLOOD GAS ORDERABLES Performing Organization Address [facility] de Phone Number [facility] [address] [place] [address] * SODIUM (10/20/2004 14:00 EDT) Sodium 140 136 - 145 mEq/L [facility] 10/20/2004 14:0 0 EDT 10/20/2004 14:14 EDT Hilton Álvarez MD CHEMISTRY & BLOOD GAS ORDERABLES Performing Organization Address [facility] de Phone Number [facility] [address] [place] [address] * (ABNORMAL) ELECTROLYTES (10/20/2004 12:42 EDT) Sodium 141 136 - 145 mEq/L [facility] Potassium 3.4(L) 3.6 - 5.2 mEq/L [facility] Chloride 109 96 - 110 mEq/L [facility] CO2 26 24 - 32 mEq/L [facility] 10/20/2004 12:4 2 EDT 10/20/2004 12:42 EDT Hilton Álvarez MD CHEMISTRY & BLOOD GAS ORDERABLES Performing Organization Address [facility] de Phone Number [facility] [address] [place] [address] * SODIUM (10/20/2004 10:00 EDT) Sodium 143 136 - 145 mEq/L [facility] 10/20/2004 10:0 0 EDT 10/20/2004 10:28 EDT Hilton Álvarez MD CHEMISTRY & BLOOD GAS ORDERABLES Performing Organization Address [facility] de Phone Number [facility] [address] [place] [address] * (ABNORMAL) ELECTROLYTES (10/20/2004 8:21 EDT) Sodium 144 136 - 145 mEq/L [facility] Comment:Heparinized plasma. Potassium 3.0(L) 3.6 - 5.2 mEq/L [facility] Comment:Heparinized plasma. Chloride 114(H) 96 - 110 mEq/L [facility] Comment:Heparinized plasma. CO2 25 24 - 32 mEq/L [facility] Comment:Heparinized plasma. 10/20/2004 8:21 EDT 10/20/2004 8:21 EDT Hilton Álvarez MD CHEMISTRY & BLOOD GAS ORDERABLES Performing Organization Address [facility] de Phone Number [facility] [address] [place] [address] * SODIUM (10/20/2004 6:06 EDT) Sodium 143 136 - 145 mEq/L [facility] 10/20/2004 6:06 EDT 10/20/2004 6:06 EDT Hilton Álvarez MD CHEMISTRY & BLOOD GAS ORDERABLES Performing Organization Address [facility] de Phone Number [facility] [address] [place] [address] * TOTAL & DIRECT BILIRUBIN (10/20/2004 4:00 EDT) Conjugated Bilirubin 0.0 0.0 - 0.3 mg/dl [facility] Unconjugated Bilirubin 0.3 0.1 - 1.1 mg/dl [facility] Bilirubin, Total <0.5 0.0 - 1.4 mg/dl [facility] 10/20/2004 4:00 EDT 10/20/2004 4:00 EDT Hilton Álvarez MD CHEMISTRY & BLOOD GAS ORDERABLES Performing Organization Address [facility] Phone Number [facility] [address] [place] [address] * TOTAL BILIRUBIN (10/20/2004 4:00 EDT) Bilirubin, Total 0.0 - 1.4 mg/dl [facility] 10/20/2004 4:00 EDT 10/20/2004 4:00 EDT Hilton Álvarez MD CHEMISTRY & BLOOD GAS ORDERABLES Performing Organization Address [facility] Phone Number [facility] [address] [place] [address] * PHOSPHORUS (10/20/2004 4:00 EDT) Phosphorus 3.4 2.9 - 5.4 mg/dl [facility] 10/20/2004 4:00 EDT 10/20/2004 4:00 EDT Hilton Álvarez MD CHEMISTRY & BLOOD GAS ORDERABLES Performing Organization Address [facility] Phone Number [facility] [address] [place] [address] * MAGNESIUM (10/20/2004 4:00 EDT) Magnesium 2.5 1.7 - 2.8 mg/dl [facility] 10/20/2004 4:00 EDT 10/20/2004 4:00 EDT Hilton Álvarez MD CHEMISTRY & BLOOD GAS ORDERABLES Performing Organization Address [facility] Phone Number [facility] [address] [place] [address] * (ABNORMAL) ELECTROLYTES (10/20/2004 4:00 EDT) Sodium 145 136 - 145 mEq/L [facility] Potassium 3.8 3.6 - 5.2 mEq/L [facility] Chloride 111(H) 96 - 110 mEq/L [facility] CO2 28 24 - 32 mEq/L [facility] 10/20/2004 4:00 EDT 10/20/2004 4:00 EDT Hilton Álvarez MD CHEMISTRY & BLOOD GAS ORDERABLES Performing Organization Address [facility] de Phone Number [facility] [address] [place] [address] * CREATININE (10/20/2004 4:00 EDT) Creatinine 0.7 0.6 - 1.2 mg/dl [facility] 10/20/2004 4:00 EDT 10/20/2004 4:00 EDT Hilton Álvarez MD HISTORICAL LAB FOR SQ LOAD Performing Organization Address [facility] de Phone Number [facility] [address] [place] [address] * (ABNORMAL) HEMAGRAM AND DIFFERENTIAL (10/20/2004 4:00 EDT) WBC 9.88 4.5 - 13.0 K/cmm [facility] RBC 3.37(L) 4.50 - 5.30 M/cmm [facility] Hemoglobin 9.6(L) 13.0 - 16.0 gm/dl [facility] HCT 27.8(L) 37.0 - 49.0 % [facility] MCV 83 78 - 98 fl [facility] MCH 28.4 pg [facility] MCHC 34.4 gm/dl [facility] PLT 376(H) 156 - 312 K/cmm [facility] RDW-CV 15.7 % [facility] % Neutrophils 72.7 % [facility] % Lymphocytes 18.6 % [facility] % Monocytes 7.2 % [facility] % Eosinophils 0.8 % [facility] % Basophils 0.7 % [facility] ABS Neutrophils 7.19 K/cmm [facility] ABS Lymphs 1.84 K/cmm [facility] ABS Monocytes 0.71 K/cmm [facility] ABS Eosinophils 0.07 K/cmm [facility] ABS Basophils 0.07 K/cmm [facility] Type of Diff: Automated [facility] 10/20/2004 4:00 EDT 10/20/2004 4:00 EDT Hilton Álvarez MD PACKAGES & DNA PRO BE ORDERABLES Performing Organization Address [facility] Co de Phone Number [facility] [address] [place] [address] * (ABNORMAL) CALCIUM (10/20/2004 4:00 EDT) Calcium 7.9(L) 8.5 - 10.5 mg/dl [facility] Calculated Calcium 9.4 8.5 - 10.5 mg/dl [facility] 10/20/2004 4:00 EDT 10/20/2004 4:00 EDT Hilton Álvarez MD CHEMISTRY & BLOOD GAS ORDERABLES Performing Organization Address [facility] de Phone Number [facility] [address] [place] [address] * BUN (10/20/2004 4:00 EDT) BUN 15 8 - 21 mg/dl [facility] 10/20/2004 4:00 EDT 10/20/2004 4:00 EDT Hilton Álvarez MD CHEMISTRY & BLOOD GAS ORDERABLES Performing Organization Address [facility] de Phone Number [facility] [address] [place] [address] * AST (10/20/2004 4:00 EDT) AST 27 16 - 38 U/L [facility] 10/20/2004 4:00 EDT 10/20/2004 4:00 EDT Hilton Álvarez MD CHEMISTRY & BLOOD GAS ORDERABLES Performing Organization Address [facility] Co de Phone Number [facility] [address] [place] [address] * (ABNORMAL) ALT (10/20/2004 4:00 EDT) ALT 50(H) 10 - 45 U/L [facility] 10/20/2004 4:00 EDT 10/20/2004 4:00 EDT Hilton Álvarez MD CHEMISTRY & BLOOD GAS ORDERABLES Performing Organization Address [facility] Co de Phone Number [facility] [address] [place] [address] * (ABNORMAL) ALKALINE PHOSPHATASE (10/20/2004 4:00 EDT) Total Alkaline Phosphatase 91(L) 130 - 525 U/L [facility] 10/20/2004 4:00 EDT 10/20/2004 4:00 EDT Hilton Álvarez MD CHEMISTRY & BLOOD GAS ORDERABLES Performing Organization Address [facility] de Phone Number [facility] [address] [place] [address] * (ABNORMAL) GLUCOSE, GLUCOMETER (10/20/2004 3:53 EDT) Glucose, Fingerstick 183(H) 70 - 110 mg/dl [facility] Event Coordinator ID [id number] Test Performed by Nursing Services [facility] 10/20/2004 3:53 EDT 10/21/2004 0:38 EDT Hilton Álvarez MD CHEMISTRY & BLOOD GAS ORDERABLES Performing Organization Address [facility] Co de Phone Number [facility] [address] [place] [address] * SODIUM (10/20/2004 2:07 EDT) Sodium 143 136 - 145 mEq/L [facility] 10/20/2004 2:07 EDT 10/20/2004 2:07 EDT Hilton Álvarez MD CHEMISTRY & BLOOD GAS ORDERABLES Performing Organization Address [facility] de Phone Number [facility] [address] [place] [address] * (ABNORMAL) ELECTROLYTES (10/20/2004 0:08 EDT) Sodium 145 136 - 145 mEq/L [facility] Potassium 3.7 3.6 - 5.2 mEq/L [facility] Chloride 113(H) 96 - 110 mEq/L [facility] CO2 28 24 - 32 mEq/L [facility] 10/20/2004 0:08 EDT 10/20/2004 0:08 EDT Hilton Álvarez MD CHEMISTRY & BLOOD GAS ORDERABLES Performing Organization Address [facility] de Phone Number [facility] [address] [place] [address] * (ABNORMAL) ELECTROLYTES (10/20/2004 0:04 EDT) Sodium 135(L) 136 - 145 mEq/L [facility] Potassium 4.0 3.6 - 5.2 mEq/L [facility] Chloride 101 96 - 110 mEq/L [facility] CO2 25 24 - 32 mEq/L [facility] 10/20/2004 0:04 EDT 10/21/2004 0:04 EDT Hilton Álvarez MD CHEMISTRY & BLOOD GAS ORDERABLES Performing Organization Address [facility] de Phone Number [facility] [address] [place] [address] * (ABNORMAL) GLUCOSE, GLUCOMETER (10/20/2004 0:02 EDT) Glucose, Fingerstick 139(H) 70 - 110 mg/dl [facility] Event Coordinator ID [id number] Test Performed by Nursing Services [facility] 10/20/2004 0:02 EDT 10/20/2004 21:53 EDT Hilton Álvarez MD CHEMISTRY & BLOOD GAS ORDERABLES Performing Organization Address [facility] Phone Number [facility] [address] [place] [address] * (ABNORMAL) SODIUM (10/19/2004 22:12 EDT) Sodium 147(H) 136 - 145 mEq/L [facility] 10/19/2004 22:1 2 EDT 10/19/2004 22:12 EDT Hilton Álvarez MD CHEMISTRY & BLOOD GAS ORDERABLES Performing Organization Address [facility] Phone Number [facility] [address] [place] [address] * (ABNORMAL) ELECTROLYTES (10/19/2004 20:00 EDT) Sodium 149(H) 136 - 145 mEq/L [facility] Comment:Heparinized plasma. Potassium 3.7 3.6 - 5.2 mEq/L [facility] Comment:Heparinized plasma. Chloride 116(H) 96 - 110 mEq/L [facility] Comment:Heparinized plasma. CO2 27 24 - 32 mEq/L [facility] Comment:Heparinized plasma. 10/19/2004 20:0 0 EDT 10/19/2004 20:00 EDT Hilton Álvarez MD CHEMISTRY & BLOOD GAS ORDERABLES Performing Organization Address [facility] Phone Number [facility] [address] [place] [address] * (ABNORMAL) GLUCOSE, GLUCOMETER (10/19/2004 19:55 EDT) Glucose, Fingerstick 165(H) 70 - 110 mg/dl [facility] Event Coordinator ID [id number] Test Performed by Nursing Services [facility] 10/19/2004 19:5 5 EDT 10/19/2004 23:17 EDT Hilton Álvarez MD CHEMISTRY & BLOOD GAS ORDERABLES Performing Organization Address [facility] de Phone Number [facility] [address] [place] [address] * (ABNORMAL) SODIUM (10/19/2004 18:27 EDT) Sodium 149(H) 136 - 145 mEq/L [facility] 10/19/2004 18:2 7 EDT 10/19/2004 18:27 EDT Hilton Álvarez MD CHEMISTRY & BLOOD GAS ORDERABLES Performing Organization Address [facility] de Phone Number [facility] [address] [place] [address] * GLUCOSE, SERUM (10/19/2004 16:52 EDT) Glucose, Serum 90 70 - 110 mg/dl [facility] 10/19/2004 16:5 2 EDT 10/19/2004 16:52 EDT Hilton Álvarez MD CHEMISTRY & BLOOD GAS ORDERABLES Performing Organization Address [facility] de Phone Number [facility] [address] [place] [address] * (ABNORMAL) ELECTROLYTES (10/19/2004 16:52 EDT) Sodium 146(H) 136 - 145 mEq/L [facility] Potassium 3.9 3.6 - 5.2 mEq/L [facility] Chloride 115(H) 96 - 110 mEq/L [facility] CO2 25 24 - 32 mEq/L [facility] 10/19/2004 16:5 2 EDT 10/19/2004 16:52 EDT Hilton Álvarez MD CHEMISTRY & BLOOD GAS ORDERABLES Performing Organization Address [facility] de Phone Number [facility] [address] [place] [address] * SODIUM (10/19/2004 14:25 EDT) Sodium 143 136 - 145 mEq/L [facility] 10/19/2004 14:2 5 EDT 10/19/2004 14:25 EDT Hilton Álvarez MD CHEMISTRY & BLOOD GAS ORDERABLES Performing Organization Address [facility] de Phone Number [facility] [address] [place] [address] * ELECTROLYTES (10/19/2004 12:09 EDT) Sodium 139 136 - 145 mEq/L [facility] Comment:Heparinized plasma. Potassium 3.9 3.6 - 5.2 mEq/L [facility] Comment:Heparinized plasma. Chloride 102 96 - 110 mEq/L [facility] Comment:Heparinized plasma. CO2 27 24 - 32 mEq/L [facility] Comment:Heparinized plasma. 10/19/2004 12:0 9 EDT 10/19/2004 12:09 EDT Hilton Álvarez MD CHEMISTRY & BLOOD GAS ORDERABLES Performing Organization Address [facility] de Phone Number [facility] [address] [place] [address] * SODIUM (10/19/2004 10:17 EDT) Sodium 139 136 - 145 mEq/L [facility] Comment:Heparinized plasma. 10/19/2004 10:1 7 EDT 10/19/2004 10:17 EDT Hilton Álvarez MD CHEMISTRY & BLOOD GAS ORDERABLES Performing Organization Address [facility] de Phone Number [facility] [address] [place] [address] * ELECTROLYTES (10/19/2004 8:20 EDT) Sodium 137 136 - 145 mEq/L [facility] Potassium 4.2 3.6 - 5.2 mEq/L [facility] Chloride 103 96 - 110 mEq/L [facility] CO2 25 24 - 32 mEq/L [facility] 10/19/2004 8:20 EDT 10/19/2004 8:20 EDT Hilton Álvarez MD CHEMISTRY & BLOOD GAS ORDERABLES Performing Organization Address [facility] Phone Number [facility] [address] [place] [address] * OSMOLALITY, URINE (10/19/2004 6:54 EDT) Osmolality, Ur 874 MOS/KG [facility] 10/19/2004 6:54 EDT 10/19/2004 6:54 EDT Hilton Álvarez MD URINALYSIS ORDERAB LES Performing Organization Address [facility] Phone Number [facility] [address] [place] [address] * SODIUM, URINE RANDOM (10/19/2004 6:54 EDT) Sodium, Ur 201.0 mEq/L [facility] 10/19/2004 6:54 EDT 10/19/2004 6:54 EDT Hilton Álvarez MD URINALYSIS ORDERAB LES Performing Organization Address [facility] de Phone Number [facility] [address] [place] [address] * GLUCOSE, SERUM (10/19/2004 6:21 EDT) Glucose, Serum 81 70 - 110 mg/dl [facility] Comment:Heparinized plasma. 10/19/2004 6:21 EDT 10/19/2004 6:21 EDT Hilton Álvarez MD CHEMISTRY & BLOOD GAS ORDERABLES Performing Organization Address [facility] Co de Phone Number [facility] [address] [place] [address] * OSMOLALITY (10/19/2004 6:21 EDT) Osmolality Cintia 285 MOS/KG [facility] 10/19/2004 6:21 EDT 10/19/2004 6:21 EDT Hilton Álvarez MD CHEMISTRY & BLOOD GAS ORDERABLES Performing Organization Address [facility] Phone Number [facility] [address] [place] [address] * (ABNORMAL) ELECTROLYTES (10/19/2004 6:21 EDT) Sodium 137 136 - 145 mEq/L [facility] Comment:Heparinized plasma. Potassium 3.9 3.6 - 5.2 mEq/L [facility] Comment:Heparinized plasma. Chloride 110 96 - 110 mEq/L [facility] Comment: Sample retested, result confirmed Heparinized plasma. CO2 20(L) 24 - 32 mEq/L [facility] Comment:Heparinized plasma. 10/19/2004 6:21 EDT 10/19/2004 6:21 EDT Hilton Álvarez MD CHEMISTRY & BLOOD GAS ORDERABLES Performing Organization Address [facility] Phone Number [facility] [address] [place] [address] * (ABNORMAL) GLUCOSE, SERUM (10/19/2004 4:25 EDT) Glucose, Serum 60(L) 70 - 110 mg/dl [facility] Comment:Heparinized plasma. 10/19/2004 4:25 EDT 10/19/2004 4:25 EDT Hilton Álvarez MD CHEMISTRY & BLOOD GAS ORDERABLES Performing Organization Address [facility] Phone Number [facility] [address] [place] [address] * (ABNORMAL) ELECTROLYTES (10/19/2004 4:25 EDT) Sodium 138 136 - 145 mEq/L [facility] Comment:Heparinized plasma. Potassium 2.8(LL) 3.6 - 5.2 mEq/L [facility] Comment: Sample retested, result confirmed Heparinized plasma. Chloride 122(H) 96 - 110 mEq/L [facility] Comment: Sample retested, result confirmed Heparinized plasma. CO2 16(L) 24 - 32 mEq/L [facility] Comment:Heparinized plasma. 10/19/2004 4:25 EDT 10/19/2004 4:25 EDT Hilton Álvarez MD CHEMISTRY & BLOOD GAS ORDERABLES Performing Organization Address [facility] de Phone Number [facility] [address] [place] [address] * TOTAL & DIRECT BILIRUBIN (10/19/2004 2:10 EDT) Conjugated Bilirubin 0.0 0.0 - 0.3 mg/dl [facility] Unconjugated Bilirubin 0.3 0.1 - 1.1 mg/dl [facility] Bilirubin, Total <0.5 0.0 - 1.4 mg/dl [facility] 10/19/2004 2:10 EDT 10/19/2004 2:10 EDT Hilton Álvarez MD CHEMISTRY & BLOOD GAS ORDERABLES Performing Organization Address [facility] de Phone Number [facility] [address] [place] [address] * PHOSPHORUS (10/19/2004 2:10 EDT) Phosphorus 4.4 2.9 - 5.4 mg/dl [facility] 10/19/2004 2:10 EDT 10/19/2004 2:10 EDT Hilton Álvarez MD CHEMISTRY & BLOOD GAS ORDERABLES Performing Organization Address [facility] de Phone Number [facility] [address] [place] [address] * MAGNESIUM (10/19/2004 2:10 EDT) Magnesium 2.4 1.7 - 2.8 mg/dl [facility] 10/19/2004 2:10 EDT 10/19/2004 2:10 EDT Hilton Álvarez MD CHEMISTRY & BLOOD GAS ORDERABLES Performing Organization Address [facility] de Phone Number [facility] [address] [place] [address] * ELECTROLYTES (10/19/2004 2:10 EDT) Sodium 137 136 - 145 mEq/L [facility] Potassium 4.1 3.6 - 5.2 mEq/L [facility] Chloride 101 96 - 110 mEq/L [facility] Comment:Sample retested, res ult confirmed CO2 26 24 - 32 mEq/L [facility] 10/19/2004 2:10 EDT 10/19/2004 2:10 EDT Hilton Álvarez MD CHEMISTRY & BLOOD GAS ORDERABLES Performing Organization Address [facility] de Phone Number [facility] [address] [place] [address] * CREATININE (10/19/2004 2:10 EDT) Creatinine 0.7 0.6 - 1.2 mg/dl [facility] 10/19/2004 2:10 EDT 10/19/2004 2:10 EDT Hilton Álvarez MD HISTORICAL LAB FOR SQ LOAD Performing Organization Address [facility] de Phone Number [facility] [address] [place] [address] * (ABNORMAL) HEMAGRAM AND DIFFERENTIAL (10/19/2004 2:10 EDT) WBC 11.74 4.5 - 13.0 K/cmm [facility] RBC 3.81(L) 4.50 - 5.30 M/cmm [facility] Hemoglobin 10.7(L) 13.0 - 16.0 gm/dl [facility] HCT 31.2(L) 37.0 - 49.0 % [facility] MCV 82 78 - 98 fl [facility] MCH 28.1 pg [facility] MCHC 34.4 gm/dl [facility] PLT 375(H) 156 - 312 K/cmm [facility] RDW-CV 15.5 % [facility] Neutrophils 79.0 % [facility] Lymphocytes 20.0 % [facility] Monocytes 1.0 % [facility] ABS Neutrophils 9.27 K/cmm [facility] ABS Lymphs 2.35 K/cmm [facility] ABS Monocytes 0.12 K/cmm [facility] RBC Morphology 1+ Anisocytosis 1+ Polychromasia 1+ Microcytes [facility] Type of Diff: Manual TRUE [facility] 10/19/2004 2:10 EDT 10/19/2004 2:10 EDT Hilton Álvarez MD PACKAGES & DNA PRO BE ORDERABLES Performing Organization Address [facility] Co de Phone Number [facility] [address] [place] [address] * (ABNORMAL) CALCIUM (10/19/2004 2:10 EDT) Calcium 8.0(L) 8.5 - 10.5 mg/dl [facility] Calculated Calcium 8.8 8.5 - 10.5 mg/dl [facility] 10/19/2004 2:10 EDT 10/19/2004 2:10 EDT Hilton Álvarez MD CHEMISTRY & BLOOD GAS ORDERABLES Performing Organization Address [facility] Co de Phone Number [facility] [address] [place] [address] * BUN (10/19/2004 2:10 EDT) BUN 14 8 - 21 mg/dl [facility] 10/19/2004 2:10 EDT 10/19/2004 2:10 EDT Hilton Álvarez MD CHEMISTRY & BLOOD GAS ORDERABLES Performing Organization Address [facility] Co de Phone Number [facility] [address] [place] [address] * AST (10/19/2004 2:10 EDT) AST 27 16 - 38 U/L [facility] 10/19/2004 2:10 EDT 10/19/2004 2:10 EDT Hilton Álvarez MD CHEMISTRY & BLOOD GAS ORDERABLES Performing Organization Address [facility] de Phone Number [facility] [address] [place] [address] * (ABNORMAL) ALT (10/19/2004 2:10 EDT) ALT 50(H) 10 - 45 U/L [facility] 10/19/2004 2:10 EDT 10/19/2004 2:10 EDT Hilton Álvarez MD CHEMISTRY & BLOOD GAS ORDERABLES Performing Organization Address [facility] de Phone Number [facility] [address] [place] [address] * (ABNORMAL) ALKALINE PHOSPHATASE (10/19/2004 2:10 EDT) Total Alkaline Phosphatase 103(L) 130 - 525 U/L [facility] 10/19/2004 2:10 EDT 10/19/2004 2:10 EDT Hilton Álvarez MD CHEMISTRY & BLOOD GAS ORDERABLES Performing Organization Address [facility] de Phone Number [facility] [address] [place] [address] * (ABNORMAL) ELECTROLYTES (10/19/2004 0:12 EDT) Sodium 137 136 - 145 mEq/L [facility] Comment:Heparinized plasma. Potassium 3.6 3.6 - 5.2 mEq/L [facility] Comment: Hemolysis may elevate potassium result. Slight hemolysis Heparinized plasma. Chloride 113(H) 96 - 110 mEq/L [facility] Comment: Sample retested, result confirmed Heparinized plasma. CO2 18(L) 24 - 32 mEq/L [facility] Comment:Heparinized plasma. 10/19/2004 0:12 EDT 10/19/2004 0:12 EDT Hilton Álvarez MD CHEMISTRY & BLOOD GAS ORDERABLES Performing Organization Address [facility] de Phone Number [facility] [address] [place] [address] * SODIUM (10/18/2004 22:11 EDT) Sodium 137 136 - 145 mEq/L [facility] 10/18/2004 22:1 1 EDT 10/18/2004 22:11 EDT Hilton Álvarez MD CHEMISTRY & BLOOD GAS ORDERABLES Performing Organization Address [facility] de Phone Number [facility] [address] [place] [address] * (ABNORMAL) ELECTROLYTES (10/18/2004 20:13 EDT) Sodium 132(L) 136 - 145 mEq/L [facility] Potassium 3.5(L) 3.6 - 5.2 mEq/L [facility] Chloride 96 96 - 110 mEq/L [facility] CO2 25 24 - 32 mEq/L [facility] 10/18/2004 20:1 3 EDT 10/18/2004 20:13 EDT Hilton Álvarez MD CHEMISTRY & BLOOD GAS ORDERABLES Performing Organization Address [facility] de Phone Number [facility] [address] [place] [address] * GLUCOSE, GLUCOMETER (10/18/2004 20:06 EDT) Glucose, Fingerstick 89 70 - 110 mg/dl [facility] Event Coordinator ID [id number] Test Performed by Nursing Services [facility] 10/18/2004 20:0 6 EDT 10/19/2004 0:23 EDT Hilton Álvarez MD CHEMISTRY & BLOOD GAS ORDERABLES Performing Organization Address [facility] Phone Number [facility] [address] [place] [address] * (ABNORMAL) SODIUM (10/18/2004 18:15 EDT) Sodium 128(L) 136 - 145 mEq/L [facility] 10/18/2004 18:1 5 EDT 10/18/2004 18:15 EDT Hilton Álvarez MD CHEMISTRY & BLOOD GAS ORDERABLES Performing Organization Address [facility] Phone Number [facility] [address] [place] [address] * (ABNORMAL) ELECTROLYTES (10/18/2004 16:08 EDT) Sodium 128(L) 136 - 145 mEq/L [facility] Potassium 3.7 3.6 - 5.2 mEq/L [facility] Chloride 93(L) 96 - 110 mEq/L [facility] CO2 27 24 - 32 mEq/L [facility] 10/18/2004 16:0 8 EDT 10/18/2004 16:08 EDT Hilton Álvarez MD CHEMISTRY & BLOOD GAS ORDERABLES Performing Organization Address [facility] de Phone Number [facility] [address] [place] [address] * GLUCOSE, GLUCOMETER (10/18/2004 16:00 EDT) Glucose, Fingerstick 106 70 - 110 mg/dl [facility] Event Coordinator ID [id number] Test Performed by Nursing Services [facility] 10/18/2004 16:0 0 EDT 10/19/2004 0:23 EDT Hilton Álvarez MD CHEMISTRY & BLOOD GAS ORDERABLES Performing Organization Address [facility] de Phone Number [facility] [address] [place] [address] * (ABNORMAL) SODIUM (10/18/2004 14:37 EDT) Sodium 128(L) 136 - 145 mEq/L [facility] 10/18/2004 14:3 7 EDT 10/18/2004 14:37 EDT Hilton Álvarez MD CHEMISTRY & BLOOD GAS ORDERABLES Performing Organization Address [facility] de Phone Number [facility] [address] [place] [address] * GLUCOSE, GLUCOMETER (10/18/2004 11:59 EDT) Glucose, Fingerstick 98 70 - 110 mg/dl [facility] Event Coordinator ID [id number] Test Performed by Nursing Services [facility] 10/18/2004 11:5 9 EDT 10/19/2004 0:22 EDT Hilton Álvarez MD CHEMISTRY & BLOOD GAS ORDERABLES Performing Organization Address [facility] de Phone Number [facility] [address] [place] [address] * (ABNORMAL) ELECTROLYTES (10/18/2004 11:56 EDT) Sodium 127(L) 136 - 145 mEq/L [facility] Potassium 3.9 3.6 - 5.2 mEq/L [facility] Chloride 92(L) 96 - 110 mEq/L [facility] CO2 29 24 - 32 mEq/L [facility] 10/18/2004 11:5 6 EDT 10/18/2004 11:56 EDT Hilton Álvarez MD CHEMISTRY & BLOOD GAS ORDERABLES Performing Organization Address [facility] de Phone Number [facility] [address] [place] [address] * (ABNORMAL) GLUCOSE, GLUCOMETER (10/18/2004 10:07 EDT) Glucose, Fingerstick 130(H) 70 - 110 mg/dl [facility] Event Coordinator ID [id number] Test Performed by Nursing Services [facility] 10/18/2004 10:0 7 EDT 10/19/2004 0:21 EDT Hilton Álvarez MD CHEMISTRY & BLOOD GAS ORDERABLES Performing Organization Address [facility] Phone Number [facility] [address] [place] [address] * (ABNORMAL) SODIUM (10/18/2004 10:06 EDT) Pathologist [facility] Sodium 128(L) 136 - 145 mEq/L [facility] Comment:Heparinized plasma. 10/18/2004 10:0 6 EDT 10/18/2004 10:06 EDT Hilton Álvarez MD CHEMISTRY & BLOOD GAS ORDERABLES Performing Organization Address [facility] Phone Number [facility] [address] [place] [address] * (ABNORMAL) ELECTROLYTES (10/18/2004 8:18 EDT) Pathologist [facility] Sodium 130(L) 136 - 145 mEq/L [facility] Potassium 3.6 3.6 - 5.2 mEq/L [facility] Chloride 92(L) 96 - 110 mEq/L [facility] CO2 30 24 - 32 mEq/L [facility] 10/18/2004 8:18 EDT 10/18/2004 8:18 EDT Hilton Álvarez MD CHEMISTRY & BLOOD GAS ORDERABLES Performing Organization Address [facility] Phone Number [facility] [address] [place] [address] * UA REFLEX (10/18/2004 7:59 EDT) UA Billing Microscopic not indicated. [facility] 10/18/2004 7:59 EDT 10/18/2004 7:59 EDT Hilton Álvarez MD URINALYSIS ORDERAB LES Performing Organization Address [facility] de Phone Number [facility] [address] [place] [address] * URINALYSIS (10/18/2004 7:59 EDT) Color, UA Yellow [facility] Clarity, UA Cloudy [facility] Glucose, UA Norm NORM [facility] Bilirubin, UA Neg NEG [facility] Ketones, UA Neg NEG [facility] Specific [facility], Urine 1.020 1.005 - 1.02 [facility] Blood, UA Neg NEG [facility] pH, UA 8.0 5.0 - 9.0 [facility] Protein, UA Neg NEG [facility] Urobilinogen, UA Norm NORM mg/dL [facility] Nitrite, UA Neg NEG [facility] Leuk Esterase Neg NEG [facility] 10/18/2004 7:59 EDT 10/18/2004 7:59 EDT Hilton Álvarez MD URINALYSIS ORDERAB LES Performing Organization Address [facility] Phone Number [facility] [address] [place] [address] * CULTURE IF UA POSITIVE (10/18/2004 7:59 EDT) Culture if Indicated Culture not indicated by urinalysis results. [facility] 10/18/2004 7:59 EDT 10/18/2004 7:59 EDT Hilton Álvarez MD MICROBIOLOGY - GEN ERAL ORDERABLES Performing Organization Address [facility] Phone Number [facility] [address] [place] [address] * (ABNORMAL) SODIUM (10/18/2004 6:38 EDT) Sodium 130(L) 136 - 145 mEq/L [facility] Comment:Heparinized plasma. 10/18/2004 6:38 EDT 10/18/2004 6:38 EDT Hilton Álvarez MD CHEMISTRY & BLOOD GAS ORDERABLES Performing Organization Address [facility] de Phone Number [facility] [address] [place] [address] * TOTAL & DIRECT BILIRUBIN (10/18/2004 4:23 EDT) Conjugated Bilirubin 0.0 0.0 - 0.3 mg/dl [facility] Unconjugated Bilirubin 0.2 0.1 - 1.1 mg/dl [facility] Bilirubin, Total <0.5 0.0 - 1.4 mg/dl [facility] 10/18/2004 4:23 EDT 10/18/2004 4:23 EDT Hilton Álvarez MD CHEMISTRY & BLOOD GAS ORDERABLES Performing Organization Address [facility] Phone Number [facility] [address] [place] [address] * PHOSPHORUS (10/18/2004 4:23 EDT) Phosphorus 3.3 2.9 - 5.4 mg/dl [facility] 10/18/2004 4:23 EDT 10/18/2004 4:23 EDT Hilton Álvarez MD CHEMISTRY & BLOOD GAS ORDERABLES Performing Organization Address [facility] de Phone Number [facility] [address] [place] [address] * MAGNESIUM (10/18/2004 4:23 EDT) Magnesium 2.1 1.7 - 2.8 mg/dl [facility] 10/18/2004 4:23 EDT 10/18/2004 4:23 EDT Hilton Álvarez MD CHEMISTRY & BLOOD GAS ORDERABLES Performing Organization Address [facility] de Phone Number [facility] [address] [place] [address] * (ABNORMAL) ELECTROLYTES (10/18/2004 4:23 EDT) Sodium 132(L) 136 - 145 mEq/L [facility] Potassium 3.6 3.6 - 5.2 mEq/L [facility] Chloride 94(L) 96 - 110 mEq/L [facility] CO2 30 24 - 32 mEq/L [facility] 10/18/2004 4:23 EDT 10/18/2004 4:23 EDT Hilton Álvarez MD CHEMISTRY & BLOOD GAS ORDERABLES Performing Organization Address [facility] de Phone Number [facility] [address] [place] [address] * CREATININE (10/18/2004 4:23 EDT) Pathologist [facility] Creatinine 0.6 0.6 - 1.2 mg/dl [facility] 10/18/2004 4:23 EDT 10/18/2004 4:23 EDT Hilton Álvarez MD HISTORICAL LAB FOR SQ LOAD Performing Organization Address [facility] de Phone Number [facility] [address] [place] [address] * (ABNORMAL) HEMAGRAM AND DIFFERENTIAL (10/18/2004 4:23 EDT) WBC 10.96 4.5 - 13.0 K/cmm [facility] RBC 3.35(L) 4.50 - 5.30 M/cmm [facility] Hemoglobin 9.6(L) 13.0 - 16.0 gm/dl [facility] HCT 27.2(L) 37.0 - 49.0 % [facility] MCV 81 78 - 98 fl [facility] MCH 28.7 pg [facility] MCHC 35.4 gm/dl [facility] PLT 362(H) 156 - 312 K/cmm [facility] RDW-CV 14.8 % [facility] % Neutrophils 74.4 % [facility] % Lymphocytes 18.3 % [facility] % Monocytes 6.6 % [facility] % Eosinophils 0.3 % [facility] % Basophils 0.4 % [facility] ABS Neutrophils 8.16 K/cmm [facility] ABS Lymphs 2.00 K/cmm [facility] ABS Monocytes 0.72 K/cmm [facility] ABS Eosinophils 0.04 K/cmm [facility] ABS Basophils 0.04 K/cmm [facility] Type of Diff: Automated [facility] 10/18/2004 4:23 EDT 10/18/2004 4:23 EDT Hilton Álvarez MD PACKAGES & DNA PRO BE ORDERABLES Performing Organization Address [facility] de Phone Number [facility] [address] [place] [address] * (ABNORMAL) CALCIUM (10/18/2004 4:23 EDT) Calcium 7.9(L) 8.5 - 10.5 mg/dl [facility] Calculated Calcium 9.0 8.5 - 10.5 mg/dl [facility] 10/18/2004 4:23 EDT 10/18/2004 4:23 EDT Hilton Álvarez MD CHEMISTRY & BLOOD GAS ORDERABLES Performing Organization Address [facility] de Phone Number [facility] [address] [place] [address] * BUN (10/18/2004 4:23 EDT) BUN 16 8 - 21 mg/dl [facility] 10/18/2004 4:23 EDT 10/18/2004 4:23 EDT Hilton Álvarez MD CHEMISTRY & BLOOD GAS ORDERABLES Performing Organization Address [facility]/[place] [facility] Co de Phone Number [facility] [address] [place] [address] * AST (10/18/2004 4:23 EDT) AST 24 16 - 38 U/L [facility] 10/18/2004 4:23 EDT 10/18/2004 4:23 EDT Hilton Álvarez MD CHEMISTRY & BLOOD GAS ORDERABLES Performing Organization Address [facility] Phone Number [facility] [address] [place] [address] * (ABNORMAL) ALT (10/18/2004 4:23 EDT) ALT 55(H) 10 - 45 U/L [facility] 10/18/2004 4:23 EDT 10/18/2004 4:23 EDT Hilton Álvarez MD CHEMISTRY & BLOOD GAS ORDERABLES Performing Organization Address [facility] Phone Number [facility] [address] [place] [address] * (ABNORMAL) ALKALINE PHOSPHATASE (10/18/2004 4:23 EDT) Total Alkaline Phosphatase 100(L) 130 - 525 U/L [facility] 10/18/2004 4:23 EDT 10/18/2004 4:23 EDT Hilton Álvarez MD CHEMISTRY & BLOOD GAS ORDERABLES Performing Organization Address [facility] Phone Number [facility] [address] [place] [address] * (ABNORMAL) SODIUM (10/18/2004 2:13 EDT) Sodium 132(L) 136 - 145 mEq/L [facility] 10/18/2004 2:13 EDT 10/18/2004 2:13 EDT Hilton Álvarez MD CHEMISTRY & BLOOD GAS ORDERABLES Performing Organization Address [facility] de Phone Number [facility] [address] [place] [address] * (ABNORMAL) SODIUM (10/18/2004 1:00 EDT) Sodium 133(L) 136 - 145 mEq/L [facility] 10/18/2004 1:00 EDT 10/18/2004 1:00 EDT Hilton Álvarez MD CHEMISTRY & BLOOD GAS ORDERABLES Performing Organization Address [facility] de Phone Number [facility] [address] [place] [address] * (ABNORMAL) BLOOD GAS, EG6 ISTAT (10/18/2004 0:10 EDT) pH, i-STAT 7.48(H) 7.35 - 7.45 [facility] pCO2, i-STAT 35 35 - 45 mmHg [facility] pO2, i-STAT 46(L) 85 - 100 mmHg [facility] TCO2, i-STAT 27 mEq/L [facility] O2 Saturation 85 % [facility] Sodium, i-STAT 134(L) 136 - 145 mEq/L [facility] Potassium, i-STAT 3.5(L) 3.6 - 5.2 mEq/L [facility] Hematocrit,iSTA T 26(L) 37 - 49 % [facility] Temperature 37.0 C [facility] FIO2 .21 [facility] Sample Type Venous [facility] design printer balloon ID [id number] Test Performed by Respiratory [facility] 10/18/2004 0:10 EDT 10/18/2004 0:06 EDT Hilton Álvarez MD CHEMISTRY & BLOOD GAS ORDERABLES Performing Organization Address [facility] de Phone Number [facility] [address] [place] [address] * OSMOLALITY (10/18/2004 0:07 EDT) Osmolality Cintia 287 MOS/KG [facility] 10/18/2004 0:07 EDT 10/18/2004 0:07 EDT Hilton Álvarez MD CHEMISTRY & BLOOD GAS ORDERABLES Performing Organization Address [facility] Phone Number [facility] [address] [place] [address] * (ABNORMAL) ELECTROLYTES (10/18/2004 0:07 EDT) Sodium 135(L) 136 - 145 mEq/L [facility] Potassium 3.5(L) 3.6 - 5.2 mEq/L [facility] Chloride 99 96 - 110 mEq/L [facility] CO2 27 24 - 32 mEq/L [facility] 10/18/2004 0:07 EDT 10/18/2004 0:07 EDT Hilton Álvarez MD CHEMISTRY & BLOOD GAS ORDERABLES Performing Organization Address [facility] Phone Number [facility] [address] [place] [address] * (ABNORMAL) GLUCOSE, GLUCOMETER (10/18/2004 0:06 EDT) Glucose, Fingerstick 112(H) 70 - 110 mg/dl [facility] Event Coordinator ID [id number] Test Performed by Nursing Services [facility] 10/18/2004 0:06 EDT 10/19/2004 0:19 EDT Hilton Álvarez MD CHEMISTRY & BLOOD GAS ORDERABLES Performing Organization Address [facility] Phone Number [facility] [address] [place] [address] * (ABNORMAL) ELECTROLYTES (10/17/2004 22:42 EDT) Sodium 125(L) 136 - 145 mEq/L [facility] Comment:Markedly lipemic Potassium 5.8(H) 3.6 - 5.2 mEq/L [facility] Comment:Markedly lipemic Chloride 92(L) 96 - 110 mEq/L [facility] Comment:Markedly lipemic CO2 24 24 - 32 mEq/L [facility] Comment:Markedly lipemic 10/17/2004 22:4 2 EDT 10/17/2004 22:42 EDT Hilton Álvarez MD CHEMISTRY & BLOOD GAS ORDERABLES Performing Organization Address [facility] de Phone Number [facility] [address] [place] [address] * OSMOLALITY (10/17/2004 21:34 EDT) Osmolality Cintia 342 MOS/KG SH[facility]I [facility] Comment:Markedly lipemic 10/17/2004 21:3 4 EDT 10/17/2004 21:34 EDT Hilton Álvarez MD CHEMISTRY & BLOOD GAS ORDERABLES Performing Organization Address [facility] de Phone Number [facility] [address] [place] [address] * (ABNORMAL) ELECTROLYTES (10/17/2004 21:34 EDT) Sodium 128(L) 136 - 145 mEq/L [facility] Comment: Sample retested, result confirmed Markedly lipemic Potassium 5.6(H) 3.6 - 5.2 mEq/L [facility] Comment: Sample retested, result confirmed Markedly lipemic Chloride 94(L) 96 - 110 mEq/L [facility] Comment: Sample retested, result confirmed Markedly lipemic CO2 25 24 - 32 mEq/L [facility] Comment: Sample retested, result confirmed Markedly lipemic 10/17/2004 21:3 4 EDT 10/17/2004 21:34 EDT Hilton Álvarez MD CHEMISTRY & BLOOD GAS ORDERABLES Performing Organization Address [facility] de Phone Number [facility] [address] [place] [address] * OSMOLALITY (10/17/2004 15:50 EDT) Osmolality Cintia 296 MOS/KG [facility] 10/17/2004 15:5 0 EDT 10/17/2004 15:51 EDT Hilton Álvarez MD CHEMISTRY & BLOOD GAS ORDERABLES Performing Organization Address [facility] de Phone Number [facility] [address] [place] [address] * (ABNORMAL) ELECTROLYTES (10/17/2004 15:50 EDT) Sodium 141 136 - 145 mEq/L [facility] Potassium 3.2(L) 3.6 - 5.2 mEq/L [facility] Chloride 108 96 - 110 mEq/L [facility] CO2 25 24 - 32 mEq/L [facility] 10/17/2004 15:5 0 EDT 10/17/2004 15:51 EDT Hilton Álvarez MD CHEMISTRY & BLOOD GAS ORDERABLES Performing Organization Address [facility] Phone Number [facility] [address] [place] [address] * OSMOLALITY, URINE (10/17/2004 11:36 EDT) Osmolality, Ur 532 MOS/KG HO[facility] 10/17/2004 11:3 6 EDT 10/17/2004 11:37 EDT Hilton Álvarez MD URINALYSIS ORDERAB LES Performing Organization Address [facility] de Phone Number [facility] [address] [place] [address] * SODIUM, URINE RANDOM (10/17/2004 11:36 EDT) Sodium, Ur 199.0 mEq/L [facility] 10/17/2004 11:3 6 EDT 10/17/2004 11:37 EDT Hilton Álvarez MD URINALYSIS ORDERAB LES Performing Organization Address [facility] de Phone Number [facility] [address] [place] [address] * OSMOLALITY (10/17/2004 11:35 EDT) Osmolality Cintia 305 MOS/KG FLEN[facility] 10/17/2004 11:3 5 EDT 10/17/2004 11:36 EDT Hilton Ávlarez MD CHEMISTRY & BLOOD GAS ORDERABLES Performing Organization Address [facility] de Phone Number [facility] [address] [place] [address] * (ABNORMAL) ELECTROLYTES (10/17/2004 11:35 EDT) Sodium 142 136 - 145 mEq/L [facility] Comment:Heparinized plasma. Potassium 3.1(L) 3.6 - 5.2 mEq/L [facility] Comment:Heparinized plasma. Chloride 116(H) 96 - 110 mEq/L [facility] Comment:Heparinized plasma. CO2 23(L) 24 - 32 mEq/L [facility] Comment:Heparinized plasma. 10/17/2004 11:3 5 EDT 10/17/2004 11:36 EDT Hilton Álvarez MD CHEMISTRY & BLOOD GAS ORDERABLES Performing Organization Address [facility] Phone Number [facility] [address] [place] [address] * CT HEAD WO CONTRAST (10/17/2004 11:04 EDT) Anatomical Region Laterality Modality Other 10/17/2004 11:0 4 EDT Narrative 03/06/2009 9:02 EDT S/P CRANIOTOMY CT OF THE HEAD WITHOUT CONTRAST: 10/17/2004, 10:43 AM IMPRESSIONS: 1. Right frontal craniotomy for craniopharyngioma resection. 2. Edema in the medial aspect of the right and left thalami. CLINICAL HISTORY: Status post craniotomy. Follow-up examination. TECHNIQUE: Transverse non-contrast CT scans of the brain were performed from the foramen magnum to the vertex. COMPARISON FILMS: 10/14/2004. FINDINGS: Craniotomy changes are again identified in the right frontal and right temporal bones. A vascular clip is also identified near the dorsum sella. Postoperative changes are seen in the inferior aspect of both frontal lobes, more on the right side. Edema is again identified in right and left thalami. Bone window views show opacification of the sphenoid sinus, likely secondary to most recent surgery. /tns Procedure Note Sandra Zavala MD - 03/06/2009 S/P CRANIOTOMY CT OF THE HEAD WITHOUT CONTRAST: 10/17/2004, 10:43 AM IMPRESSIONS: 1. Right frontal craniotomy for craniopharyngioma resection. 2. Edema in the medial aspect of the right and left thalami. CLINICAL HISTORY: Status post craniotomy. Follow-up examination. TECHNIQUE: Transverse non-contrast CT scans of the brain were performed from the foramen magnum to the vertex. COMPARISON FILMS: 10/14/2004. FINDINGS: Craniotomy changes are again identified in the right frontal and right temporal bones. A vascular clip is also identified near the dorsum sella. Postoperative changes are seen in the inferior aspect of both frontal lobes, more on the right side. Edema is again identified in right and left thalami. Bone window views show opacification of the sphenoid sinus, likely secondary to most recent surgery. /tns Hilton Álvarez MD IMG CT ORDERABLES * IR CHANGE PICC (10/17/2004 11:00 EDT) Anatomical Region Laterality Modality Other 10/17/2004 11:0 0 EDT Impressions 03/06/2009 9:00 EDT IMPRESSION: 1. Successful change of PICC line to double-lumen. 2. Fluoroscopic guidance used. /guillermo Narrative 03/06/2009 9:00 EDT S/P CRANI S/L PICC LINE CHANGE TO D/L PICC REPLACEMENT OF PICC LINE DESCRIPTION: This patient has a single-lumen PICC line on the right. Over a guidewire, the existing PICC line was removed and, with fluoroscopic guidance, replaced with a double-lumen PICC line. The tip was placed at the SVC/RA junction. Procedure Note Rickey Davey MD - 03/06/2009 S/P CRANI S/L PICC LINE CHANGE TO D/L PICC REPLACEMENT OF PICC LINE DESCRIPTION: This patient has a single-lumen PICC line on the right. Over a guidewire, the existing PICC line was removed and, with fluoroscopic guidance, replaced with a double-lumen PICC line. The tip was placed at the SVC/RA junction. IMPRESSION IMPRESSION: 1. Successful change of PICC line to double-lumen. 2. Fluoroscopic guidance used. /[facility] Hilton Álvarez MD IMG IR ORDERABLES * OSMOLALITY, URINE (10/17/2004 8:00 EDT) Osmolality, Ur 209 MOS/KG [facility] 10/17/2004 8:00 EDT 10/17/2004 8:04 EDT Hilton Álvarez MD URINALYSIS ORDERAB LES Performing Organization Address [facility] de Phone Number [facility] [address] [place] [address] * SODIUM, URINE RANDOM (10/17/2004 8:00 EDT) Sodium, Ur 66.0 mEq/L [facility] 10/17/2004 8:00 EDT 10/17/2004 8:04 EDT Hilton Álvarez MD URINALYSIS ORDERAB LES Performing Organization Address [facility] Co de Phone Number [facility] [address] [place] [address] * OSMOLALITY (10/17/2004 8:00 EDT) Osmolality Cintia 304 MOS/KG SH[facility]I [facility] 10/17/2004 8:00 EDT 10/17/2004 8:05 EDT Hilton Álvarez MD CHEMISTRY & BLOOD GAS ORDERABLES Performing Organization Address [facility] de Phone Number [facility] [address] [place] [address] * (ABNORMAL) ELECTROLYTES (10/17/2004 8:00 EDT) Sodium 143 136 - 145 mEq/L [facility] Potassium 3.6 3.6 - 5.2 mEq/L [facility] Chloride 111(H) 96 - 110 mEq/L [facility] CO2 26 24 - 32 mEq/L [facility] 10/17/2004 8:00 EDT 10/17/2004 8:05 EDT Hilton Álvarez MD CHEMISTRY & BLOOD GAS ORDERABLES Performing Organization Address [facility] de Phone Number [facility] [address] [place] [address] * SODIUM (10/17/2004 6:13 EDT) Sodium 142 136 - 145 mEq/L [facility] 10/17/2004 6:13 EDT 10/17/2004 6:13 EDT Hilton Álvarez MD CHEMISTRY & BLOOD GAS ORDERABLES Performing Organization Address [facility] de Phone Number [facility] [address] [place] [address] * OSMOLALITY, URINE (10/17/2004 3:58 EDT) Osmolality, Ur 578 MOS/KG [facility] 10/17/2004 3:58 EDT 10/17/2004 3:58 EDT Hilton Álvarez MD URINALYSIS ORDERAB LES Performing Organization Address [facility] Co de Phone Number [facility] [address] [place] [address] * SODIUM, URINE RANDOM (10/17/2004 3:58 EDT) Sodium, Ur 175.0 mEq/L [facility] 10/17/2004 3:58 EDT 10/17/2004 3:58 EDT Hilton Álvarez MD URINALYSIS ORDERAB LES Performing Organization Address [facility] de Phone Number [facility] [address] [place] [address] * TOTAL BILIRUBIN (10/17/2004 3:57 EDT) Bilirubin, Total <0.5 0.0 - 1.4 mg/dl [facility] 10/17/2004 3:57 EDT 10/17/2004 3:57 EDT Hilton Álvarez MD CHEMISTRY & BLOOD GAS ORDERABLES Performing Organization Address [facility] Phone Number [facility] [address] [place] [address] * GLUCOSE, SERUM (10/17/2004 3:57 EDT) Glucose, Serum 96 70 - 110 mg/dl [facility] 10/17/2004 3:57 EDT 10/17/2004 3:57 EDT Hilton Álvarez MD CHEMISTRY & BLOOD GAS ORDERABLES Performing Organization Address [facility] Phone Number [facility] [address] [place] [address] * PTT (10/17/2004 3:57 EDT) PTT 26 23 - 34 secs [facility] Comment:Therapeutic Heparin range: 72-120 seconds 10/17/2004 3:57 EDT 10/17/2004 3:57 EDT Hilton Álvarez MD HEMATOLOGY & PF4 O RDERABLES Performing Organization Address [facility] Phone Number [facility] [address] [place] [address] * (ABNORMAL) PROTIME (10/17/2004 3:57 EDT) [facility] Pro Time 14.9(H) 12.3 - 14.7 secs [facility] I.N.R. 1.1 0.9 - 1.1 Ratio [facility] Comment: Moderate Intensity Coumadin INR = 2.0-3.0 Adjustments in anticoagulant therapy dose should be based upon the INR and NOT the Pro Time. 10/17/2004 3:57 EDT 10/17/2004 3:57 EDT Hilton Álvarez MD HEMATOLOGY & PF4 O RDERABLES Performing Organization Address [facility] Co de Phone Number [facility] [address] [place] [address] * PHOSPHORUS (10/17/2004 3:57 EDT) [facility] Phosphorus 3.8 2.9 - 5.4 mg/dl [facility] 10/17/2004 3:57 EDT 10/17/2004 3:57 EDT Hilton Álvarez MD CHEMISTRY & BLOOD GAS ORDERABLES Performing Organization Address [facility] de Phone Number [facility] [address] [place] [address] * OSMOLALITY (10/17/2004 3:57 EDT) [facility] Osmolality Cintia 296 MOS/KG [facility] 10/17/2004 3:57 EDT 10/17/2004 3:57 EDT Hilton Álvarez MD CHEMISTRY & BLOOD GAS ORDERABLES Performing Organization Address [facility] Co de Phone Number [facility] [address] [place] [address] * BILIRUBIN (10/17/2004 3:57 EDT) [facility] Conjugated Bilirubin 0.0 0.0 - 0.3 mg/dl [facility] Unconjugated Bilirubin 0.2 0.1 - 1.1 mg/dl [facility] Calculated Total Bilirubin 0.2 0.0 - 1.4 mg/dl [facility] 10/17/2004 3:57 EDT 10/17/2004 3:57 EDT Hilton Álvarez MD CHEMISTRY & BLOOD GAS ORDERABLES Performing Organization Address [facility] de Phone Number [facility] [address] [place] [address] * ELECTROLYTES (10/17/2004 3:57 EDT) Sodium 141 136 - 145 mEq/L [facility] Potassium 3.7 3.6 - 5.2 mEq/L [facility] Chloride 105 96 - 110 mEq/L [facility] CO2 28 24 - 32 mEq/L [facility] 10/17/2004 3:57 EDT 10/17/2004 3:57 EDT Hilton Álvarez MD CHEMISTRY & BLOOD GAS ORDERABLES Performing Organization Address [facility] de Phone Number [facility] [address] [place] [address] * BILIRUBIN DIRECT/INDIRECT (10/17/2004 3:57 EDT) Conjugated Bilirubin 0.0 - 0.3 mg/dl [facility] Unconjugated Bilirubin 0.1 - 1.1 mg/dl [facility] 10/17/2004 3:57 EDT 10/17/2004 3:57 EDT Hilton Álvarez MD CHEMISTRY & BLOOD GAS ORDERABLES Performing Organization Address [facility] de Phone Number [facility] [address] [place] [address] * CREATININE (10/17/2004 3:57 EDT) Creatinine 0.8 0.6 - 1.2 mg/dl [facility] 10/17/2004 3:57 EDT 10/17/2004 3:57 EDT Hilton Álvarez MD HISTORICAL LAB FOR SQ LOAD Performing Organization Address City/[facility]/ZIP Co de Phone Number [facility] [address] [place] [address] * (ABNORMAL) HEMAGRAM AND DIFFERENTIAL (10/17/2004 3:57 EDT) WBC 9.97 4.5 - 13.0 K/cmm [facility] RBC 3.45(L) 4.50 - 5.30 M/cmm [facility] Hemoglobin 9.6(L) 13.0 - 16.0 gm/dl [facility] HCT 28.5(L) 37.0 - 49.0 % [facility] MCV 83 78 - 98 fl [facility] MCH 27.8 pg [facility] MCHC 33.7 gm/dl [facility] PLT 325(H) 156 - 312 K/cmm [facility] RDW-CV 15.3 % [facility] % Neutrophils 77.0 % [facility] % Lymphocytes 17.1 % [facility] % Monocytes 5.5 % [facility] % Eosinophils 0.1 % [facility] % Basophils 0.3 % [facility] ABS Neutrophils 7.68 K/cmm [facility] ABS Lymphs 1.71 K/cmm [facility] ABS Monocytes 0.55 K/cmm [facility] ABS Eosinophils 0.01 K/cmm [facility] ABS Basophils 0.02 K/cmm [facility] Type of Diff: Automated [facility] 10/17/2004 3:57 EDT 10/17/2004 3:57 EDT Hilton Álvarez MD PACKAGES & DNA PRO BE ORDERABLES Performing Organization Address City/[facility] Co de Phone Number [facility] [address] [place] [address] * (ABNORMAL) CALCIUM (10/17/2004 3:57 EDT) Calcium 7.9(L) 8.5 - 10.5 mg/dl [facility] Calculated Calcium 9.4 8.5 - 10.5 mg/dl [facility] 10/17/2004 3:57 EDT 10/17/2004 3:57 EDT Hilton Álvarez MD CHEMISTRY & BLOOD GAS ORDERABLES Performing Organization Address [facility] de Phone Number [facility] [address] [place] [address] * BUN (10/17/2004 3:57 EDT) BUN 17 8 - 21 mg/dl [facility] 10/17/2004 3:57 EDT 10/17/2004 3:57 EDT Hilton Álvarez MD CHEMISTRY & BLOOD GAS ORDERABLES Performing Organization Address [facility] Phone Number [facility] [address] [place] [address] * AST (10/17/2004 3:57 EDT) Pathologist [facility] AST 27 16 - 38 U/L [facility] 10/17/2004 3:57 EDT 10/17/2004 3:57 EDT Hilton Álvarez MD CHEMISTRY & BLOOD GAS ORDERABLES Performing Organization Address [facility] Phone Number [facility] [address] [place] [address] * (ABNORMAL) ALT (10/17/2004 3:57 EDT) Pathologist [facility] ALT 59(H) 10 - 45 U/L [facility] 10/17/2004 3:57 EDT 10/17/2004 3:57 EDT Hilton Álvarez MD CHEMISTRY & BLOOD GAS ORDERABLES Performing Organization Address [facility] Co de Phone Number [facility] [address] [place] [address] * (ABNORMAL) ALKALINE PHOSPHATASE (10/17/2004 3:57 EDT) Total Alkaline Phosphatase 91(L) 130 - 525 U/L [facility] 10/17/2004 3:57 EDT 10/17/2004 3:57 EDT Hilton Álvarez MD CHEMISTRY & BLOOD GAS ORDERABLES Performing Organization Address [facility] de Phone Number [facility] [address] [place] [address] * SODIUM (10/17/2004 1:56 EDT) Sodium 141 136 - 145 mEq/L [facility] 10/17/2004 1:56 EDT 10/17/2004 1:56 EDT Hilton Álvarez MD CHEMISTRY & BLOOD GAS ORDERABLES Performing Organization Address [facility] de Phone Number [facility] [address] [place] [address] * OSMOLALITY, URINE (10/17/2004 0:10 EDT) Osmolality, Ur 620 MOS/KG [facility] 10/17/2004 0:10 EDT 10/17/2004 0:10 EDT Hilton Álvarez MD URINALYSIS ORDERAB LES Performing Organization Address [facility] de Phone Number [facility] [address] [place] [address] * SODIUM, URINE RANDOM (10/17/2004 0:10 EDT) Sodium, Ur 214.0 mEq/L [facility] 10/17/2004 0:10 EDT 10/17/2004 0:10 EDT Hilton Álvarez MD URINALYSIS ORDERAB LES Performing Organization Address [facility] Co de Phone Number [facility] [address] [place] [address] * OSMOLALITY (10/17/2004 0:09 EDT) Osmolality Cintia 295 MOS/KG [facility] 10/17/2004 0:09 EDT 10/17/2004 0:09 EDT Hilton Álvarez MD CHEMISTRY & BLOOD GAS ORDERABLES Performing Organization Address [facility] de Phone Number [facility] [address] [place] [address] * ELECTROLYTES (10/17/2004 0:09 EDT) Sodium 142 136 - 145 mEq/L [facility] Potassium 3.8 3.6 - 5.2 mEq/L [facility] Chloride 109 96 - 110 mEq/L [facility] CO2 28 24 - 32 mEq/L [facility] 10/17/2004 0:09 EDT 10/17/2004 0:09 EDT Hilton Álvarez MD CHEMISTRY & BLOOD GAS ORDERABLES Performing Organization Address [facility] de Phone Number [facility] [address] [place] [address] * SODIUM (10/16/2004 21:56 EDT) Sodium 141 136 - 145 mEq/L [facility] 10/16/2004 21:5 6 EDT 10/16/2004 21:56 EDT Hilton Álvarze MD CHEMISTRY & BLOOD GAS ORDERABLES Performing Organization Address [facility] de Phone Number [facility] [address] [place] [address] * SODIUM, URINE RANDOM (10/16/2004 20:15 EDT) Sodium, Ur 190.0 mEq/L [facility] 10/16/2004 20:1 5 EDT 10/16/2004 20:15 EDT Hilton Álvarez MD URINALYSIS ORDERAB LES Performing Organization Address [facility] de Phone Number [facility] [address] [place] [address] * OSMOLALITY (10/16/2004 20:05 EDT) Osmolality Cintia 295 MOS/KG MELONIENoe [facility] 10/16/2004 20:0 5 EDT 10/16/2004 20:41 EDT Hilton Álvarez MD CHEMISTRY & BLOOD GAS ORDERABLES Performing Organization Address [facility] de Phone Number [facility] [address] [place] [address] * ELECTROLYTES (10/16/2004 20:05 EDT) Sodium 143 136 - 145 mEq/L [facility] Potassium 3.7 3.6 - 5.2 mEq/L [facility] Chloride 108 96 - 110 mEq/L [facility] CO2 29 24 - 32 mEq/L [facility] 10/16/2004 20:0 5 EDT 10/16/2004 20:41 EDT Hilton Álvarez MD CHEMISTRY & BLOOD GAS ORDERABLES Performing Organization Address [facility] de Phone Number [facility] [address] [place] [address] * SODIUM (10/16/2004 18:07 EDT) Sodium 144 136 - 145 mEq/L [facility] 10/16/2004 18:0 7 EDT 10/16/2004 18:07 EDT Hilton Álvarez MD CHEMISTRY & BLOOD GAS ORDERABLES Performing Organization Address [facility] de Phone Number [facility] [address] [place] [address] * OSMOLALITY, URINE (10/16/2004 16:27 EDT) Osmolality, Ur 338 MOS/KG [facility] 10/16/2004 16:2 7 EDT 10/16/2004 16:27 EDT Hilton Álvarez MD URINALYSIS ORDERAB LES Performing Organization Address [facility] Co de Phone Number [facility] [address] [place] [address] * SODIUM, URINE RANDOM (10/16/2004 16:27 EDT) Sodium, Ur 100.0 mEq/L [facility] 10/16/2004 16:2 7 EDT 10/16/2004 16:27 EDT Hilton Álvarez MD URINALYSIS ORDERAB LES Performing Organization Address [facility] de Phone Number [facility] [address] [place] [address] * GLUCOSE, SERUM (10/16/2004 16:27 EDT) Glucose, Serum 95 70 - 110 mg/dl [facility] 10/16/2004 16:2 7 EDT 10/16/2004 16:27 EDT Hilton Álvarez MD CHEMISTRY & BLOOD GAS ORDERABLES Performing Organization Address [facility] de Phone Number [facility] [address] [place] [address] * OSMOLALITY (10/16/2004 16:27 EDT) Osmolality Cintia 297 MOS/KG SHERI ALME[facility] 10/16/2004 16:2 7 EDT 10/16/2004 16:27 EDT Hilton Álvarez MD CHEMISTRY & BLOOD GAS ORDERABLES Performing Organization Address [facility] Co de Phone Number [facility] [address] [place] [address] * SODIUM (10/16/2004 16:27 EDT) Sodium 136 - 145 mEq/L [facility] 10/16/2004 16:2 7 EDT 10/16/2004 16:27 EDT Hilton Álvarez MD CHEMISTRY & BLOOD GAS ORDERABLES Performing Organization Address [facility] de Phone Number [facility] [address] [place] [address] * ELECTROLYTES (10/16/2004 16:27 EDT) Sodium 143 136 - 145 mEq/L [facility] Potassium 3.8 3.6 - 5.2 mEq/L [facility] Chloride 109 96 - 110 mEq/L [facility] CO2 28 24 - 32 mEq/L [facility] 10/16/2004 16:2 7 EDT 10/16/2004 16:27 EDT Hilton Álvarez MD CHEMISTRY & BLOOD GAS ORDERABLES Performing Organization Address [facility] Phone Number [facility] [address] [place] [address] * SODIUM (10/16/2004 14:14 EDT) Sodium 141 136 - 145 mEq/L [facility] 10/16/2004 14:1 4 EDT 10/16/2004 14:14 EDT Hilton Álvarez MD CHEMISTRY & BLOOD GAS ORDERABLES Performing Organization Address [facility] Phone Number [facility] [address] [place] [address] * OSMOLALITY, URINE (10/16/2004 12:14 EDT) Osmolality, Ur 191 MOS/KG [facility] 10/16/2004 12:1 4 EDT 10/16/2004 12:14 EDT Hilton Álvarez MD URINALYSIS ORDERAB LES Performing Organization Address [facility] Phone Number [facility] [address] [place] [address] * SODIUM, URINE RANDOM (10/16/2004 12:14 EDT) Sodium, Ur 27.0 mEq/L [facility] 10/16/2004 12:1 4 EDT 10/16/2004 12:14 EDT Hilton Álvarez MD URINALYSIS ORDERAB LES Performing Organization Address [facility] Co de Phone Number [facility] [address] [place] [address] * OSMOLALITY (10/16/2004 12:13 EDT) Osmolality Cintia 298 MOS/KG SHERI ALMEIDA [facility] 10/16/2004 12:1 3 EDT 10/16/2004 12:13 EDT Hilton Álvarez MD CHEMISTRY & BLOOD GAS ORDERABLES Performing Organization Address [facility] de Phone Number [facility] [address] [place] [address] * ELECTROLYTES (10/16/2004 12:13 EDT) Sodium 138 136 - 145 mEq/L [facility] Potassium 3.6 3.6 - 5.2 mEq/L [facility] Chloride 103 96 - 110 mEq/L [facility] CO2 27 24 - 32 mEq/L [facility] 10/16/2004 12:1 3 EDT 10/16/2004 12:13 EDT Hilton Álvarez MD CHEMISTRY & BLOOD GAS ORDERABLES Performing Organization Address [facility] de Phone Number [facility] [address] [place] [address] * (ABNORMAL) SODIUM (10/16/2004 10:21 EDT) Sodium 135(L) 136 - 145 mEq/L [facility] Comment:Heparinized plasma. 10/16/2004 10:2 1 EDT 10/16/2004 10:21 EDT Hilton Álvarez MD CHEMISTRY & BLOOD GAS ORDERABLES Performing Organization Address [facility] de Phone Number [facility] [address] [place] [address] * OSMOLALITY, URINE (10/16/2004 8:22 EDT) Osmolality, Ur 792 MOS/KG [facility] 10/16/2004 8:22 EDT 10/16/2004 8:22 EDT Hilton Álvarez MD URINALYSIS ORDERAB LES Performing Organization Address [facility] de Phone Number [facility] [address] [place] [address] * SODIUM, URINE RANDOM (10/16/2004 8:22 EDT) Sodium, Ur 186.0 mEq/L [facility] 10/16/2004 8:22 EDT 10/16/2004 8:22 EDT Hilton Álvarez MD URINALYSIS ORDERAB LES Performing Organization Address [facility] de Phone Number [facility] [address] [place] [address] * OSMOLALITY (10/16/2004 8:21 EDT) Osmolality Cintia 289 MOS/KG [facility] 10/16/2004 8:21 EDT 10/16/2004 8:21 EDT Hilton Álvarez MD CHEMISTRY & BLOOD GAS ORDERABLES Performing Organization Address [facility] de Phone Number [facility] [address] [place] [address] * SODIUM (10/16/2004 8:21 EDT) Sodium 136 - 145 mEq/L [facility] 10/16/2004 8:21 EDT 10/16/2004 8:21 EDT Hilton Álvarez MD CHEMISTRY & BLOOD GAS ORDERABLES Performing Organization Address [facility] de Phone Number [facility] [address] [place] [address] * (ABNORMAL) ELECTROLYTES (10/16/2004 8:21 EDT) Sodium 135(L) 136 - 145 mEq/L [facility] Potassium 3.9 3.6 - 5.2 mEq/L [facility] Chloride 101 96 - 110 mEq/L [facility] CO2 28 24 - 32 mEq/L [facility] 10/16/2004 8:21 EDT 10/16/2004 8:21 EDT Hilton Álvarez MD CHEMISTRY & BLOOD GAS ORDERABLES Performing Organization Address City/[facility] Co de Phone Number [facility] [address] [place] [address] * SODIUM (10/16/2004 6:19 EDT) Sodium 137 136 - 145 mEq/L [facility] 10/16/2004 6:19 EDT 10/16/2004 6:19 EDT Hilton Álvarez MD CHEMISTRY & BLOOD GAS ORDERABLES Performing Organization Address City/[facility] Co de Phone Number [facility] [address] [place] [address] * GLUCOSE, SERUM (10/16/2004 4:25 EDT) Glucose, Serum 100 70 - 110 mg/dl [facility] 10/16/2004 4:25 EDT 10/16/2004 4:25 EDT Hilton Álvarez MD CHEMISTRY & BLOOD GAS ORDERABLES Performing Organization Address City/[facility] Co de Phone Number [facility] [address] [place] [address] * PTT (10/16/2004 4:25 EDT) PTT 27 23 - 34 secs [facility] Comment:Therapeutic Heparin range: 72-120 seconds 10/16/2004 4:25 EDT 10/16/2004 4:25 EDT Hilton Álvarez MD HEMATOLOGY & PF4 O RDERABLES Performing Organization Address [facility] de Phone Number [facility] [address] [place] [address] * (ABNORMAL) PROTIME (10/16/2004 4:25 EDT) Pro Time 14.8(H) 12.3 - 14.7 secs [facility] I.N.R. 1.1 0.9 - 1.1 Ratio [facility] Comment: Moderate Intensity Coumadin INR = 2.0-3.0 Adjustments in anticoagulant therapy dose should be based upon the INR and NOT the Pro Time. 10/16/2004 4:25 EDT 10/16/2004 4:25 EDT Hilton Álvarez MD HEMATOLOGY & PF4 O RDERABLES Performing Organization Address [facility] de Phone Number [facility] [address] [place] [address] * OSMOLALITY (10/16/2004 4:25 EDT) Osmolality Cintia 283 MOS/KG [facility] 10/16/2004 4:25 EDT 10/16/2004 4:25 EDT Hilton Álvarez MD CHEMISTRY & BLOOD GAS ORDERABLES Performing Organization Address [facility] de Phone Number [facility] [address] [place] [address] * ELECTROLYTES (10/16/2004 4:25 EDT) Sodium 138 136 - 145 mEq/L [facility] Potassium 3.7 3.6 - 5.2 mEq/L [facility] Chloride 103 96 - 110 mEq/L [facility] CO2 30 24 - 32 mEq/L [facility] 10/16/2004 4:25 EDT 10/16/2004 4:25 EDT Hilton Álvarez MD CHEMISTRY & BLOOD GAS ORDERABLES [facility] [address] [place] [address] * CREATININE (10/16/2004 4:25 EDT) Creatinine 0.8 0.6 - 1.2 mg/dl [facility] 10/16/2004 4:25 EDT 10/16/2004 4:25 EDT Hilton Álvarez MD HISTORICAL LAB FOR SQ LOAD [facility] [address] [place] [address] * (ABNORMAL) HEMAGRAM AND DIFFERENTIAL (10/16/2004 4:25 EDT) Pathologist [facility] WBC 10.35 4.5 - 13.0 K/cmm [facility] RBC 3.61(L) 4.50 - 5.30 M/cmm [facility] Hemoglobin 10.3(L) 13.0 - 16.0 gm/dl [facility] HCT 29.5(L) 37.0 - 49.0 % [facility] MCV 82 78 - 98 fl [facility] MCH 28.5 pg [facility] MCHC 34.8 gm/dl [facility] PLT 338(H) 156 - 312 K/cmm [facility] RDW-CV 15.5 % [facility] % Neutrophils 78.3 % [facility] % Lymphocytes 14.3 % [facility] % Monocytes 6.5 % [facility] % Eosinophils 0.5 % [facility] % Basophils 0.4 % [facility] ABS Neutrophils 8.11 K/cmm [facility] Lymphs 1.48 K/cmm [facility] ABS Monocytes 0.67 K/cmm [facility] Eosinophils 0.05 K/cmm [facility] Basophils 0.05 K/cmm [facility] Type of Diff: Automated [facility] 10/16/2004 4:25 EDT 10/16/2004 4:25 EDT Hilton Álvarez MD PACKAGES & DNA PRO BE ORDERABLES Performing Organization Address City/[facility]/ZIP Co de Phone Number [facility] [address] [place] [address] * BUN (10/16/2004 4:25 EDT) BUN 19 8 - 21 mg/dl [facility] 10/16/2004 4:25 EDT 10/16/2004 4:25 EDT Hilton Álvarez MD CHEMISTRY & BLOOD GAS ORDERABLES Performing Organization Address City/[facility]/ZIP Co de Phone Number [facility] [address] [place] [address] * OSMOLALITY, URINE (10/16/2004 4:25 EDT) Osmolality, Ur 845 MOS/KG [facility] 10/16/2004 4:25 EDT 10/16/2004 4:25 EDT Hilton Álvarez MD URINALYSIS ORDERAB LES Performing Organization Address [facility] Co de Phone Number [facility] [address] [place] [address] * SODIUM, URINE RANDOM (10/16/2004 4:25 EDT) Sodium, Ur 165.0 mEq/L [facility] 10/16/2004 4:25 EDT 10/16/2004 4:25 EDT Hilton Álvarez MD URINALYSIS ORDERAB LES Performing Organization Address [facility] Co de Phone Number [facility] [address] [place] [address] * SODIUM (10/16/2004 2:11 EDT) Sodium 136 136 - 145 mEq/L [facility] 10/16/2004 2:11 EDT 10/16/2004 2:11 EDT Hilton Álvarez MD CHEMISTRY & BLOOD GAS ORDERABLES Performing Organization Address [facility] de Phone Number [facility] [address] [place] [address] * OSMOLALITY (10/16/2004 0:18 EDT) Osmolality Cintia 292 MOS/KG MELONIENoe [facility] 10/16/2004 0:18 EDT 10/16/2004 0:18 EDT Hilton Álvarez MD CHEMISTRY & BLOOD GAS ORDERABLES Performing Organization Address [facility] de Phone Number [facility] [address] [place] [address] * ELECTROLYTES (10/16/2004 0:18 EDT) Sodium 139 136 - 145 mEq/L [facility] Potassium 3.6 3.6 - 5.2 mEq/L [facility] Chloride 104 96 - 110 mEq/L [facility] CO2 29 24 - 32 mEq/L [facility] 10/16/2004 0:18 EDT 10/16/2004 0:18 EDT Hilton Álvarez MD CHEMISTRY & BLOOD GAS ORDERABLES Performing Organization Address [facility] Phone Number [facility] [address] [place] [address] * OSMOLALITY, URINE (10/16/2004 0:18 EDT) Osmolality, Ur 276 MOS/KG [facility] 10/16/2004 0:18 EDT 10/16/2004 0:18 EDT Hilton Álvarez MD URINALYSIS ORDERAB LES Performing Organization Address [facility] de Phone Number [facility] [address] [place] [address] * SODIUM, URINE RANDOM (10/16/2004 0:18 EDT) Sodium, Ur 60.0 mEq/L [facility] 10/16/2004 0:18 EDT 10/16/2004 0:18 EDT Hilton Álvarez MD URINALYSIS ORDERAB LES Performing Organization Address [facility] Co de Phone Number [facility] [address] [place] [address] * SODIUM (10/15/2004 21:55 EDT) Sodium 141 136 - 145 mEq/L [facility] 10/15/2004 21:5 5 EDT 10/15/2004 21:55 EDT Hilton Álvarez MD CHEMISTRY & BLOOD GAS ORDERABLES Performing Organization Address [facility] de Phone Number [facility] [address] [place] [address] * OSMOLALITY, URINE (10/15/2004 20:04 EDT) Osmolality, Ur 117 MOS/KG [facility] ROJAS [facility] 10/15/2004 20:0 4 EDT 10/15/2004 20:04 EDT Hilton Álvarez MD URINALYSIS ORDERAB LES Performing Organization Address [facility] de Phone Number [facility] [address] [place] [address] * SODIUM, URINE RANDOM (10/15/2004 20:04 EDT) Sodium, Ur 29.0 mEq/L [facility] 10/15/2004 20:0 4 EDT 10/15/2004 20:04 EDT Hilton Álvarez MD URINALYSIS ORDERAB LES Performing Organization Address [facility] Co de Phone Number [facility] [address] [place] [address] * OSMOLALITY (10/15/2004 20:04 EDT) Osmolality Cintia 285 MOS/KG SHERI ALMEIDA [facility] 10/15/2004 20:0 4 EDT 10/15/2004 20:04 EDT Hilton Álvarez MD CHEMISTRY & BLOOD GAS ORDERABLES Performing Organization Address [facility] de Phone Number [facility] [address] [place] [address] * ELECTROLYTES (10/15/2004 20:04 EDT) Sodium 136 136 - 145 mEq/L [facility] Potassium 3.6 3.6 - 5.2 mEq/L [facility] Chloride 99 96 - 110 mEq/L [facility] CO2 29 24 - 32 mEq/L [facility] 10/15/2004 20:0 4 EDT 10/15/2004 20:04 EDT Hilton Álvarez MD CHEMISTRY & BLOOD GAS ORDERABLES Performing Organization Address [facility] de Phone Number [facility] [address] [place] [address] * (ABNORMAL) HEMAGRAM (10/15/2004 20:04 EDT) WBC 12.67 4.5 - 13.0 K/cmm [facility] RBC 3.77(L) 4.50 - 5.30 M/cmm [facility] Hemoglobin 10.8(L) 13.0 - 16.0 gm/dl [facility] HCT 31.0(L) 37.0 - 49.0 % [facility] MCV 82 78 - 98 fl [facility] MCH 28.6 pg [facility] MCHC 34.7 gm/dl [facility] PLT 320(H) 156 - 312 K/cmm [facility] RDW-CV 15.2 % [facility] 10/15/2004 20:0 4 EDT 10/15/2004 20:04 EDT Hilton Álvarez MD HEMATOLOGY & PF4 O RDERABLES [facility] [address] [place] [address] * (ABNORMAL) SODIUM (10/15/2004 18:23 EDT) Sodium 133(L) 136 - 145 mEq/L [facility] 10/15/2004 18:2 3 EDT 10/15/2004 18:27 EDT Hilton Álvarez MD CHEMISTRY & BLOOD GAS ORDERABLES Performing Organization Address [facility] Co de Phone Number [facility] [address] [place] [address] * OSMOLALITY, URINE (10/15/2004 16:23 EDT) Osmolality, Ur 405 MOS/KG HOLLY ROJAS [facility] 10/15/2004 16:2 3 EDT 10/15/2004 16:23 EDT Hilton Álvarez MD URINALYSIS ORDERAB LES Performing Organization Address [facility] de Phone Number [facility] [address] [place] [address] * SODIUM, URINE RANDOM (10/15/2004 16:23 EDT) Pathologist [facility] Sodium, Ur 96.0 mEq/L [facility] 10/15/2004 16:2 3 EDT 10/15/2004 16:23 EDT Hilton Álvarez MD URINALYSIS ORDERAB LES Performing Organization Address [facility] Co de Phone Number [facility] [address] [place] [address] * GLUCOSE, SERUM (10/15/2004 16:22 EDT) Glucose, Serum 97 70 - 110 mg/dl [facility] 10/15/2004 16:2 2 EDT 10/15/2004 16:22 EDT Hilton Álvarez MD CHEMISTRY & BLOOD GAS ORDERABLES Performing Organization Address [facility] de Phone Number [facility] [address] [place] [address] * OSMOLALITY (10/15/2004 16:22 EDT) Osmolality Cintia 269 MOS/KG SH[facility]I [facility] 10/15/2004 16:2 2 EDT 10/15/2004 16:22 EDT Hilton Álvarez MD CHEMISTRY & BLOOD GAS ORDERABLES Performing Organization Address [facility] Phone Number [facility] [address] [place] [address] * (ABNORMAL) ELECTROLYTES (10/15/2004 16:22 EDT) Sodium 130(L) 136 - 145 mEq/L [facility] Potassium 3.6 3.6 - 5.2 mEq/L [facility] Chloride 96 96 - 110 mEq/L [facility] CO2 28 24 - 32 mEq/L [facility] 10/15/2004 16:2 2 EDT 10/15/2004 16:22 EDT Hilton Álvarez MD CHEMISTRY & BLOOD GAS ORDERABLES Performing Organization Address [facility] Phone Number [facility] [address] [place] [address] * (ABNORMAL) SODIUM (10/15/2004 14:04 EDT) Sodium 129(L) 136 - 145 mEq/L [facility] Comment:Heparinized plasma. 10/15/2004 14:0 4 EDT 10/15/2004 14:04 EDT Hilton Álvarez MD CHEMISTRY & BLOOD GAS ORDERABLES Performing Organization Address [facility] Phone Number [facility] [address] [place] [address] * OSMOLALITY (10/15/2004 12:06 EDT) Osmolality Cintia 275 MOS/KG [facility] 10/15/2004 12:0 6 EDT 10/15/2004 12:06 EDT Hilton Álvarez MD CHEMISTRY & BLOOD GAS ORDERABLES Performing Organization Address [facility] de Phone Number [facility] [address] [place] [address] * SODIUM (10/15/2004 12:06 EDT) Sodium 136 - 145 mEq/L [facility] 10/15/2004 12:0 6 EDT 10/15/2004 12:06 EDT Hilton Álvarez MD CHEMISTRY & BLOOD GAS ORDERABLES Performing Organization Address [facility] Phone Number [facility] [address] [place] [address] * (ABNORMAL) ELECTROLYTES (10/15/2004 12:06 EDT) Sodium 130(L) 136 - 145 mEq/L [facility] Comment:Heparinized plasma. Potassium 3.7 3.6 - 5.2 mEq/L [facility] Comment:Heparinized plasma. Chloride 96 96 - 110 mEq/L [facility] Comment:Heparinized plasma. CO2 28 24 - 32 mEq/L [facility] Comment:Heparinized plasma. 10/15/2004 12:0 6 EDT 10/15/2004 12:06 EDT Hilton Álvarez MD CHEMISTRY & BLOOD GAS ORDERABLES Performing Organization Address [facility] de Phone Number [facility] [address] [place] [address] * OSMOLALITY, URINE (10/15/2004 12:04 EDT) Osmolality, Ur 840 MOS/KG [facility] 10/15/2004 12:0 4 EDT 10/15/2004 12:04 EDT Hilton Álvarez MD URINALYSIS ORDERAB LES [facility] [address] [place] [address] * SODIUM, URINE RANDOM (10/15/2004 12:04 EDT) Sodium, Ur 243.0 mEq/L [facility] 10/15/2004 12:0 4 EDT 10/15/2004 12:04 EDT Hilton Álvarez MD URINALYSIS ORDERAB LES Performing Organization Address [facility] de Phone Number [facility] [address] [place] [address] * (ABNORMAL) SODIUM (10/15/2004 10:07 EDT) Sodium 130(L) 136 - 145 mEq/L [facility] Comment:Heparinized plasma. 10/15/2004 10:0 7 EDT 10/15/2004 10:07 EDT Hilton Álvarez MD CHEMISTRY & BLOOD GAS ORDERABLES Performing Organization Address [facility] Phone Number [facility] [address] [place] [address] * OSMOLALITY, URINE (10/15/2004 8:17 EDT) Osmolality, Ur 791 MOS/KG [facility] 10/15/2004 8:17 EDT 10/15/2004 8:17 EDT Hilton Álvarez MD URINALYSIS ORDERAB LES Performing Organization Address [facility] de Phone Number [facility] [address] [place] [address] * SODIUM, URINE RANDOM (10/15/2004 8:17 EDT) Sodium, Ur 254.0 mEq/L [facility] 10/15/2004 8:17 EDT 10/15/2004 8:17 EDT Hilton Álvarez MD URINALYSIS ORDERAB LES Performing Organization Address [facility] Co de Phone Number [facility] [address] [place] [address] * URINE MICROSCOPIC (10/15/2004 8:17 EDT) WBC, UA None seen 0 - 5 /HPF [facility] RBC, UA less than 1 0 - 5 /HPF [facility] Squam Epithel, UA None seen NS /HPF [facility] Renal Epithel, UA None seen NS /HPF [facility] Bacteria, UA None seen NS /HPF [facility] Crystals, UA 1 to 10 /HPF [facility] Comment:Calcium phosphate Hyaline Casts, UA None seen /LPF [facility] UA Comment Microscopic results are unreliable on urines unrefrig >2hrs or refrig >8hrs. [facility] Mucus, UA Present [facility] Additional Findings Amorphous material present [facility] 10/15/2004 8:17 EDT 10/15/2004 8:17 EDT Hilton Álvarez MD URINALYSIS ORDERAB LES Performing Organization Address [facility] Co de Phone Number [facility] [address] [place] [address] * (ABNORMAL) URINALYSIS (10/15/2004 8:17 EDT) Color, UA Yellow [facility] Clarity, UA Clear [facility] Glucose, UA Norm NORM [facility] Bilirubin, UA Neg NEG [facility] Ketones, UA Neg NEG [facility] Specific [facility], Urine 1.020 1.005 - 1.02 [facility] Blood, UA Trace(A) NEG [facility] pH, UA 7.0 5.0 - 9.0 [facility] Protein, UA Neg NEG [facility] Urobilinogen, UA Norm NORM mg/dL [facility] Nitrite, UA Neg NEG [facility] Leuk Esterase Neg NEG [facility] 10/15/2004 8:17 EDT 10/15/2004 8:17 EDT Hilton Álvarez MD URINALYSIS ORDERAB LES Performing Organization Address [facility] Co de Phone Number [facility] [address] [place] [address] * TESTS ADDED BY PHONE (10/15/2004 8:17 EDT) Pathologist [facility] Tests to be added UA [facility] 10/15/2004 8:17 EDT 10/15/2004 8:17 EDT Hilton Álvarez MD CHEMISTRY & BLOOD GAS ORDERABLES Performing Organization Address [facility] de Phone Number [facility] [address] [place] [address] * OSMOLALITY (10/15/2004 8:16 EDT) Pathologist [facility] Osmolality Cintia 271 MOS/KG SH[facility]I [facility] 10/15/2004 8:16 EDT 10/15/2004 8:16 EDT Hilton Álvarez MD CHEMISTRY & BLOOD GAS ORDERABLES Performing Organization Address [facility] Co de Phone Number [facility] [address] [place] [address] * (ABNORMAL) ELECTROLYTES (10/15/2004 8:16 EDT) Pathologist [facility] Sodium 131(L) 136 - 145 mEq/L [facility] Potassium 3.6 3.6 - 5.2 mEq/L [facility] Chloride 98 96 - 110 mEq/L [facility] CO2 29 24 - 32 mEq/L [facility] 10/15/2004 8:16 EDT 10/15/2004 8:16 EDT Hilton Álvarez MD CHEMISTRY & BLOOD GAS ORDERABLES Performing Organization Address [facility] Co de Phone Number [facility] [address] [place] [address] * OSMOLALITY, URINE (10/15/2004 4:21 EDT) Pathologist [facility] Osmolality, Ur 587 MOS/KG HO[facility] 10/15/2004 4:21 EDT 10/15/2004 4:21 EDT Hilton Álvarez MD URINALYSIS ORDERAB LES Performing Organization Address [facility] Co de Phone Number [facility] [address] [place] [address] * SODIUM, URINE RANDOM (10/15/2004 4:21 EDT) Pathologist [facility] Sodium, Ur 189.0 mEq/L [facility] 10/15/2004 4:21 EDT 10/15/2004 4:21 EDT Hilton Álvarez MD URINALYSIS ORDERAB LES Performing Organization Address [facility] de Phone Number [facility] [address] [place] [address] * GLUCOSE, SERUM (10/15/2004 4:21 EDT) Pathologist [facility] Glucose, Serum 110 70 - 110 mg/dl [facility] 10/15/2004 4:21 EDT 10/15/2004 4:21 EDT Hilton Álvarez MD CHEMISTRY & BLOOD GAS ORDERABLES Performing Organization Address [facility] de Phone Number [facility] [address] [place] [address] * PTT (10/15/2004 4:21 EDT) Pathologist [facility] PTT 27 23 - 34 secs [facility] Comment:Therapeutic Heparin range: 72-120 seconds 10/15/2004 4:21 EDT 10/15/2004 4:21 EDT Hilton Álvarez MD HEMATOLOGY & PF4 O RDERABLES Performing Organization Address [facility] de Phone Number [facility] [address] [place] [address] * (ABNORMAL) PROTIME (10/15/2004 4:21 EDT) Pro Time 14.9(H) 12.3 - 14.7 secs [facility] I.N.R. 1.1 0.9 - 1.1 Ratio [facility] Comment: Moderate Intensity Coumadin INR = 2.0-3.0 Adjustments in anticoagulant therapy dose should be based upon the INR and NOT the Pro Time. 10/15/2004 4:21 EDT 10/15/2004 4:21 EDT Hilton Álvarez MD HEMATOLOGY & PF4 O RDERABLES Performing Organization Address [facility] Co de Phone Number [facility] [address] [place] [address] * OSMOLALITY (10/15/2004 4:21 EDT) Pathologist [facility] Osmolality Cintia 270 MOS/KG SHERI [facility] 10/15/2004 4:21 EDT 10/15/2004 4:21 EDT Hilton Álvarez MD CHEMISTRY & BLOOD GAS ORDERABLES Performing Organization Address [facility] de Phone Number [facility] [address] [place] [address] * (ABNORMAL) ELECTROLYTES (10/15/2004 4:21 EDT) Pathologist [facility] Sodium 126(L) 136 - 145 mEq/L [facility] Potassium 3.5(L) 3.6 - 5.2 mEq/L [facility] Chloride 90(L) 96 - 110 mEq/L [facility] CO2 30 24 - 32 mEq/L [facility] 10/15/2004 4:21 EDT 10/15/2004 4:21 EDT Hilton Álvarez MD CHEMISTRY & BLOOD GAS ORDERABLES Performing Organization Address [facility] Co de Phone Number [facility] [address] [place] [address] * CREATININE (10/15/2004 4:21 EDT) Pathologist [facility] Creatinine 0.6 0.6 - 1.2 mg/dl [facility] 10/15/2004 4:21 EDT 10/15/2004 4:21 EDT Hilton Álvarez MD HISTORICAL LAB FOR SQ LOAD Performing Organization Address City/[facility] Co de Phone Number [facility] [address] [place] [address] * (ABNORMAL) HEMAGRAM AND DIFFERENTIAL (10/15/2004 4:21 EDT) WBC 13.00 4.5 - 13.0 K/cmm [facility] RBC 3.64(L) 4.50 - 5.30 M/cmm [facility] Hemoglobin 10.3(L) 13.0 - 16.0 gm/dl [facility] HCT 29.7(L) 37.0 - 49.0 % [facility] MCV 82 78 - 98 fl [facility] MCH 28.2 pg [facility] MCHC 34.6 gm/dl [facility] PLT 301 156 - 312 K/cmm [facility] RDW-CV 15.5 % [facility] % Neutrophils 76.7 % [facility] % Lymphocytes 14.4 % [facility] % Monocytes 7.4 % [facility] % Eosinophils 1.1 % [facility] % Basophils 0.4 % [facility] ABS Neutrophils 9.96 K/cmm [facility] ABS Lymphs 1.87 K/cmm [facility] ABS Monocytes 0.96 K/cmm [facility] ABS Eosinophils 0.15 K/cmm [facility] ABS Basophils 0.06 K/cmm [facility] Type of Diff: Automated [facility] 10/15/2004 4:21 EDT 10/15/2004 4:21 EDT Hilton Álvarez MD PACKAGES & DNA PRO BE ORDERABLES Performing Organization Address City/[facility] Co de Phone Number [facility] [address] [place] [address] * BUN (10/15/2004 4:21 EDT) BUN 12 8 - 21 mg/dl [facility] 10/15/2004 4:21 EDT 10/15/2004 4:21 EDT Hilton Álvarez MD CHEMISTRY & BLOOD GAS ORDERABLES Performing Organization Address [facility] Phone Number [facility] [address] [place] [address] * OSMOLALITY, URINE (10/15/2004 0:55 EDT) Osmolality, Ur 646 MOS/KG [facility] 10/15/2004 0:55 EDT 10/15/2004 0:55 EDT Hilton Álvarez MD URINALYSIS ORDERAB LES Performing Organization Address [facility] Phone Number [facility] [address] [place] [address] * SODIUM, URINE RANDOM (10/15/2004 0:55 EDT) Sodium, Ur 258.0 mEq/L [facility] 10/15/2004 0:55 EDT 10/15/2004 0:55 EDT Hilton Álvarez MD URINALYSIS ORDERAB LES Performing Organization Address [facility] Phone Number [facility] [address] [place] [address] * OSMOLALITY (10/15/2004 0:54 EDT) Osmolality Cintia 266 MOS/KG [facility] 10/15/2004 0:54 EDT 10/15/2004 0:54 EDT Hilton Álvarez MD CHEMISTRY & BLOOD GAS ORDERABLES Performing Organization Address [facility] de Phone Number [facility] [address] [place] [address] * (ABNORMAL) ELECTROLYTES (10/15/2004 0:54 EDT) Sodium 127(L) 136 - 145 mEq/L [facility] Potassium 3.6 3.6 - 5.2 mEq/L [facility] Chloride 92(L) 96 - 110 mEq/L [facility] CO2 29 24 - 32 mEq/L [facility] 10/15/2004 0:54 EDT 10/15/2004 0:54 EDT Hilton Álvarez MD CHEMISTRY & BLOOD GAS ORDERABLES Performing Organization Address [facility] Co de Phone Number [facility] [address] [place] [address] * SODIUM, URINE RANDOM (10/14/2004 22:05 EDT) Sodium, Ur 148.0 mEq/L [facility] 10/14/2004 22:0 5 EDT 10/14/2004 22:05 EDT Hilton Álvarez MD URINALYSIS ORDERAB LES Performing Organization Address [facility] de Phone Number [facility] [address] [place] [address] * (ABNORMAL) SODIUM (10/14/2004 21:44 EDT) Sodium 130(L) 136 - 145 mEq/L [facility] 10/14/2004 21:4 4 EDT 10/14/2004 22:05 EDT Hilton Álvarez MD CHEMISTRY & BLOOD GAS ORDERABLES Performing Organization Address [facility] Co de Phone Number [facility] [address] [place] [address] * (ABNORMAL) GLUCOSE, SERUM (10/14/2004 20:25 EDT) Glucose, Serum 125(H) 70 - 110 mg/dl [facility] 10/14/2004 20:2 5 EDT 10/14/2004 20:25 EDT Hilton Álvarez MD CHEMISTRY & BLOOD GAS ORDERABLES Performing Organization Address [facility] de Phone Number [facility] [address] [place] [address] * OSMOLALITY (10/14/2004 20:25 EDT) Osmolality Cintia 272 MOS/KG [facility]I [facility] 10/14/2004 20:2 5 EDT 10/14/2004 20:25 EDT Hilton Álvarez MD CHEMISTRY & BLOOD GAS ORDERABLES Performing Organization Address [facility] de Phone Number [facility] [address] [place] [address] * (ABNORMAL) ELECTROLYTES (10/14/2004 20:25 EDT) Sodium 130(L) 136 - 145 mEq/L [facility] Potassium 3.7 3.6 - 5.2 mEq/L [facility] Chloride 94(L) 96 - 110 mEq/L [facility] CO2 29 24 - 32 mEq/L [facility] 10/14/2004 20:2 5 EDT 10/14/2004 20:25 EDT Hilton Álvarez MD CHEMISTRY & BLOOD GAS ORDERABLES Performing Organization Address [facility] Phone Number [facility] [address] [place] [address] * CREATININE (10/14/2004 20:25 EDT) Creatinine 0.6 0.6 - 1.2 mg/dl [facility] 10/14/2004 20:2 5 EDT 10/14/2004 20:25 EDT Hilton Álvarez MD HISTORICAL LAB FOR SQ LOAD Performing Organization Address [facility] de Phone Number [facility] [address] [place] [address] * BUN (10/14/2004 20:25 EDT) BUN 13 8 - 21 mg/dl [facility] 10/14/2004 20:2 5 EDT 10/14/2004 20:25 EDT Hilton Álvarez MD CHEMISTRY & BLOOD GAS ORDERABLES Performing Organization Address [facility] Phone Number [facility] [address] [place] [address] * OSMOLALITY, URINE (10/14/2004 20:25 EDT) Osmolality, Ur 697 MOS/KG [facility] 10/14/2004 20:2 5 EDT 10/14/2004 20:25 EDT Hilton Álvarez MD URINALYSIS ORDERAB LES Performing Organization Address [facility] Phone Number [facility] [address] [place] [address] * SODIUM, URINE RANDOM (10/14/2004 20:25 EDT) Sodium, Ur 275.0 mEq/L [facility] 10/14/2004 20:2 5 EDT 10/14/2004 20:25 EDT Hilton Álvarez MD URINALYSIS ORDERAB LES Performing Organization Address [facility] de Phone Number [facility] [address] [place] [address] * (ABNORMAL) GLUCOSE, SERUM (10/14/2004 15:58 EDT) Glucose, Serum 113(H) 70 - 110 mg/dl [facility] 10/14/2004 15:5 8 EDT 10/14/2004 16:03 EDT Hilton Álvarez MD CHEMISTRY & BLOOD GAS ORDERABLES Performing Organization Address [facility] Co de Phone Number [facility] [address] [place] [address] * OSMOLALITY (10/14/2004 15:58 EDT) Osmolality Cintia 285 MOS/KG [facility] 10/14/2004 15:5 8 EDT 10/14/2004 16:03 EDT Hilton Álvarez MD CHEMISTRY & BLOOD GAS ORDERABLES Performing Organization Address [facility] de Phone Number [facility] [address] [place] [address] * (ABNORMAL) ELECTROLYTES (10/14/2004 15:58 EDT) Sodium 133(L) 136 - 145 mEq/L [facility] Potassium 3.9 3.6 - 5.2 mEq/L [facility] Chloride 100 96 - 110 mEq/L [facility] CO2 27 24 - 32 mEq/L [facility] 10/14/2004 15:5 8 EDT 10/14/2004 16:03 EDT Hilton Álvarez MD CHEMISTRY & BLOOD GAS ORDERABLES Performing Organization Address [facility] de Phone Number [facility] [address] [place] [address] * OSMOLALITY, URINE (10/14/2004 15:57 EDT) Osmolality, Ur 823 MOS/KG [facility] 10/14/2004 15:5 7 EDT 10/14/2004 16:02 EDT Hilton Álvarez MD URINALYSIS ORDERAB LES Performing Organization Address [facility] Co de Phone Number [facility] [address] [place] [address] * SODIUM, URINE RANDOM (10/14/2004 15:57 EDT) Sodium, Ur 265.0 mEq/L [facility] 10/14/2004 15:5 7 EDT 10/14/2004 16:02 EDT Hilton Álvarez MD URINALYSIS ORDERAB LES [facility] [address] [place] [address] * CT HEAD WO CONTRAST (10/14/2004 13:25 EDT) Anatomical Region Laterality Modality Other 10/14/2004 13:2 5 EDT Impressions 03/02/2009 16:36 EDT IMPRESSION: 1. 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 2. 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 TECHNIQUE: Transverse non-contrast CT scans of the brain were performed from the foramen magnum to the vertex. COMPARISON EXAMINATION: 10/13/04. FINDINGS: Craniotomy changes are again identified in the right frontal and right temporal bones. A minimal amount of intracranial air is seen adjacent to the right frontal horn. Most of the intracranial air has resolved. Vascular clip is seen near the tip of the basilar artery. Edema is also identified in the right and left thalami, likely secondary to occlusion of the artery of [place]. There is no intracranial bleed. There is no midline shift. Chronic mucosal changes are again seen in both maxillary sinuses. Fluid level is identified in the left maxillary sinus. The sphenoid is completely opacified. Partial opacification is seen in the left ethmoid air cells. /guillermo Narrative 03/02/2009 16:36 EDT H/O S/P CRANIOPHARYNGIOMA RESECTION R/O STROKE CT OF THE HEAD WITHOUT CONTRAST: 10/14/04, 13:20PM Procedure Note Sandra Zavala MD - 03/02/2009 H/O S/P CRANIOPHARYNGIOMA RESECTION R/O STROKE CT OF THE HEAD WITHOUT CONTRAST: 10/14/04, 13:20PM IMPRESSION IMPRESSION: 1. 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 2. 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 TECHNIQUE: Transverse non-contrast CT scans of the brain were performed from the foramen magnum to the vertex. COMPARISON EXAMINATION: 10/13/04. FINDINGS: Craniotomy changes are again identified in the right frontal and right temporal bones. A minimal amount of intracranial air is seen adjacent to the right frontal horn. Most of the intracranial air has resolved. Vascular clip is seen near the tip of the basilar artery. Edema is also identified in the right and left thalami, likely secondary to occlusion of the artery of [place]. There is no intracranial bleed. There is no midline shift. Chronic mucosal changes are again seen in both maxillary sinuses. Fluid level is identified in the left maxillary sinus. The sphenoid is completely opacified. Partial opacification is seen in the left ethmoid air cells. /[facility] Trice Scott MD IMG CT ORDERABLES * OSMOLALITY, URINE (10/14/2004 11:49 EDT) Osmolality, Ur 888 MOS/KG [facility] 10/14/2004 11:4 9 EDT 10/14/2004 11:49 EDT Hilton Álvarez MD URINALYSIS ORDERAB LES Performing Organization Address City/[facility]/ZIP Co de Phone Number [facility] [address] [place] [address] * SODIUM, URINE RANDOM (10/14/2004 11:49 EDT) Pathologist [facility] Sodium, Ur 249.0 mEq/L [facility] 10/14/2004 11:4 9 EDT 10/14/2004 11:49 EDT Hilton Álvarez MD URINALYSIS ORDERAB LES Performing Organization Address City/[facility]/ZIP Co de Phone Number [facility] [address] [place] [address] * OSMOLALITY (10/14/2004 11:48 EDT) Osmolality Cintia 283 MOS/KG [facility] 10/14/2004 11:4 8 EDT 10/14/2004 11:48 EDT Hilton Álvarez MD CHEMISTRY & BLOOD GAS ORDERABLES Performing Organization Address [facility] de Phone Number [facility] [address] [place] [address] * (ABNORMAL) ELECTROLYTES (10/14/2004 11:48 EDT) Sodium 136 136 - 145 mEq/L [facility] Potassium 3.5(L) 3.6 - 5.2 mEq/L [facility] Chloride 102 96 - 110 mEq/L [facility] CO2 31 24 - 32 mEq/L [facility] 10/14/2004 11:4 8 EDT 10/14/2004 11:48 EDT Hilton Álvarez MD CHEMISTRY & BLOOD GAS ORDERABLES Performing Organization Address [facility] de Phone Number [facility] [address] [place] [address] * OSMOLALITY, URINE (10/14/2004 8:01 EDT) Osmolality, Ur 899 MOS/KG [facility] 10/14/2004 8:01 EDT 10/14/2004 8:01 EDT Hilton Álvarez MD URINALYSIS ORDERAB LES Performing Organization Address [facility] de Phone Number [facility] [address] [place] [address] * SODIUM, URINE RANDOM (10/14/2004 8:01 EDT) Sodium, Ur 287.0 mEq/L [facility] 10/14/2004 8:01 EDT 10/14/2004 8:01 EDT Hilton Álvarez MD URINALYSIS ORDERAB LES Performing Organization Address [facility] Co de Phone Number [facility] [address] [place] [address] * OSMOLALITY (10/14/2004 8:01 EDT) Osmolality Cintia 286 MOS/KG [facility] 10/14/2004 8:01 EDT 10/14/2004 8:01 EDT Hilton Álvarez MD CHEMISTRY & BLOOD GAS ORDERABLES Performing Organization Address [facility] de Phone Number [facility] [address] [place] [address] * (ABNORMAL) ELECTROLYTES (10/14/2004 8:01 EDT) Sodium 139 136 - 145 mEq/L [facility] Potassium 3.2(L) 3.6 - 5.2 mEq/L [facility] Chloride 105 96 - 110 mEq/L [facility] CO2 28 24 - 32 mEq/L [facility] 10/14/2004 8:01 EDT 10/14/2004 8:01 EDT Hilton Álvarez MD CHEMISTRY & BLOOD GAS ORDERABLES Performing Organization Address [facility] Phone Number [facility] [address] [place] [address] * GLUCOSE, SERUM (10/14/2004 4:22 EDT) Glucose, Serum 99 70 - 110 mg/dl [facility] 10/14/2004 4:22 EDT 10/14/2004 4:22 EDT Hilton Álvarez MD CHEMISTRY & BLOOD GAS ORDERABLES Performing Organization Address [facility] de Phone Number [facility] [address] [place] [address] * PTT (10/14/2004 4:22 EDT) PTT 25 23 - 34 secs [facility] Comment:Therapeutic Heparin range: 72-120 seconds 10/14/2004 4:22 EDT 10/14/2004 4:22 EDT Hilton Álvarez MD HEMATOLOGY & PF4 O RDERABLES Performing Organization Address [facility] de Phone Number [facility] [address] [place] [address] * (ABNORMAL) PROTIME (10/14/2004 4:22 EDT) Pro Time 16.0(H) 12.3 - 14.7 secs [facility] I.N.R. 1.2(H) 0.9 - 1.1 Ratio [facility] Comment: Moderate Intensity Coumadin INR = 2.0-3.0 Adjustments in anticoagulant therapy dose should be based upon the INR and NOT the Pro Time. 10/14/2004 4:22 EDT 10/14/2004 4:22 EDT Hilton Álvarez MD HEMATOLOGY & PF4 O RDERABLES Performing Organization Address [facility] de Phone Number [facility] [address] [place] [address] * OSMOLALITY (10/14/2004 4:22 EDT) Pathologist [facility] Osmolality Cintia 291 MOS/KG [facility] 10/14/2004 4:22 EDT 10/14/2004 4:22 EDT Hilton Álvarez MD CHEMISTRY & BLOOD GAS ORDERABLES Performing Organization Address [facility] de Phone Number [facility] [address] [place] [address] * (ABNORMAL) ELECTROLYTES (10/14/2004 4:22 EDT) Pathologist [facility] Sodium 137 136 - 145 mEq/L [facility] Potassium 3.3(L) 3.6 - 5.2 mEq/L [facility] Chloride 103 96 - 110 mEq/L [facility] CO2 31 24 - 32 mEq/L [facility] 10/14/2004 4:22 EDT 10/14/2004 4:22 EDT Hilton Álvarez MD CHEMISTRY & BLOOD GAS ORDERABLES Performing Organization Address [facility] de Phone Number [facility] [address] [place] [address] * CREATININE (10/14/2004 4:22 EDT) Creatinine 0.8 0.6 - 1.2 mg/dl [facility] 10/14/2004 4:22 EDT 10/14/2004 4:22 EDT Hilton Álvarez MD HISTORICAL LAB FOR SQ LOAD Performing Organization Address City/[facility] Co de Phone Number [facility] [address] [place] [address] * (ABNORMAL) HEMAGRAM AND DIFFERENTIAL (10/14/2004 4:22 EDT) WBC 11.30 4.5 - 13.0 K/cmm [facility] RBC 3.34(L) 4.50 - 5.30 M/cmm [facility] Hemoglobin 9.4(L) 13.0 - 16.0 gm/dl [facility] HCT 27.2(L) 37.0 - 49.0 % [facility] MCV 82 78 - 98 fl [facility] MCH 28.1 pg [facility] MCHC 34.4 gm/dl [facility] PLT 249 156 - 312 K/cmm [facility] RDW-CV 15.3 % [facility] % Neutrophils 69.2 % [facility] % Lymphocytes 16.8 % [facility] % Monocytes 13.1 % [facility] % Eosinophils 0.3 % [facility] % Basophils 0.6 % [facility] ABS Neutrophils 7.82 K/cmm [facility] ABS Lymphs 1.90 K/cmm [facility] ABS Monocytes 1.48 K/cmm [facility] Eosinophils 0.03 K/cmm [facility] ABS Basophils 0.07 K/cmm [facility] Type of Diff: Automated [facility] 10/14/2004 4:22 EDT 10/14/2004 4:22 EDT Hilton Álvarez MD PACKAGES & DNA PRO BE ORDERABLES Performing Organization Address City/State/[facility] Co de Phone Number [facility] [address] [place] [address] * BUN (10/14/2004 4:22 EDT) Pathologist [facility] BUN 16 8 - 21 mg/dl [facility] 10/14/2004 4:22 EDT 10/14/2004 4:22 EDT Hilton Álvarez MD CHEMISTRY & BLOOD GAS ORDERABLES Performing Organization Address [facility] de Phone Number [facility] [address] [place] [address] * REFRACTOMETER SPECIFIC GRAVITY, URINE (10/14/2004 4:21 EDT) [facility] Refractometer SG,Urine 1.019 1.005 - 1.02 [facility] 10/14/2004 4:21 EDT 10/14/2004 4:21 EDT Hilton Álvarez MD URINALYSIS ORDERAB LES Performing Organization Address [facility] de Phone Number [facility] [address] [place] [address] * OSMOLALITY, URINE (10/14/2004 4:21 EDT) [facility] Osmolality, Ur 852 MOS/KG [facility] 10/14/2004 4:21 EDT 10/14/2004 4:21 EDT Hilton Álvarez MD URINALYSIS ORDERAB LES Performing Organization Address [facility] de Phone Number [facility] [address] [place] [address] * SODIUM, URINE RANDOM (10/14/2004 4:21 EDT) Pathologist [facility] Sodium, Ur 306.0 mEq/L [facility] 10/14/2004 4:21 EDT 10/14/2004 4:21 EDT Hilton Álvarez MD URINALYSIS ORDERAB LES Performing Organization Address [facility] de Phone Number [facility] [address] [place] [address] * GLUCOSE, SERUM (10/14/2004 0:22 EDT) Glucose, Serum 91 70 - 110 mg/dl [facility] 10/14/2004 0:22 EDT 10/14/2004 0:22 EDT Hilton Álvarez MD CHEMISTRY & BLOOD GAS ORDERABLES Performing Organization Address [facility] de Phone Number [facility] [address] [place] [address] * OSMOLALITY (10/14/2004 0:22 EDT) Osmolality Cintia 290 MOS/KG [facility] 10/14/2004 0:22 EDT 10/14/2004 0:22 EDT Hilton Álvarez MD CHEMISTRY & BLOOD GAS ORDERABLES Performing Organization Address [facility] de Phone Number [facility] [address] [place] [address] * (ABNORMAL) ELECTROLYTES (10/14/2004 0:22 EDT) Pathologist [facility] Sodium 141 136 - 145 mEq/L [facility] Potassium 3.4(L) 3.6 - 5.2 mEq/L [facility] Chloride 106 96 - 110 mEq/L [facility] CO2 30 24 - 32 mEq/L [facility] 10/14/2004 0:22 EDT 10/14/2004 0:22 EDT Hilton Álvarez MD CHEMISTRY & BLOOD GAS ORDERABLES Performing Organization Address [facility] de Phone Number [facility] [address] [place] [address] * OSMOLALITY, URINE (10/14/2004 0:22 EDT) Osmolality, Ur 767 MOS/KG [facility] 10/14/2004 0:22 EDT 10/14/2004 0:22 EDT Hilton Álvarez MD URINALYSIS ORDERAB LES Performing Organization Address [facility] Phone Number [facility] [address] [place] [address] * SODIUM, URINE RANDOM (10/14/2004 0:22 EDT) Sodium, Ur 293.0 mEq/L [facility] 10/14/2004 0:22 EDT 10/14/2004 0:22 EDT Hilton Álvarez MD URINALYSIS ORDERAB LES Performing Organization Address [facility] Phone Number [facility] [address] [place] [address] * SODIUM (10/13/2004 22:02 EDT) Sodium 143 136 - 145 mEq/L [facility] 10/13/2004 22:0 2 EDT 10/13/2004 22:02 EDT Hilton Álvarez MD CHEMISTRY & BLOOD GAS ORDERABLES Performing Organization Address [facility] Phone Number [facility] [address] [place] [address] * OSMOLALITY (10/13/2004 20:19 EDT) Osmolality Cintia 300 MOS/KG [facility] 10/13/2004 20:1 9 EDT 10/13/2004 20:19 EDT Hilton Álvarez MD CHEMISTRY & BLOOD GAS ORDERABLES Performing Organization Address [facility] Phone Number [facility] [address] [place] [address] * (ABNORMAL) ELECTROLYTES (10/13/2004 20:19 EDT) Sodium 147(H) 136 - 145 mEq/L [facility] Potassium 3.5(L) 3.6 - 5.2 mEq/L [facility] Chloride 111(H) 96 - 110 mEq/L [facility] CO2 29 24 - 32 mEq/L [facility] 10/13/2004 20:1 9 EDT 10/13/2004 20:19 EDT Hilton Álvarez MD CHEMISTRY & BLOOD GAS ORDERABLES Performing Organization Address [facility] de Phone Number [facility] [address] [place] [address] * (ABNORMAL) REFRACTOMETER SPECIFIC GRAVITY, URINE (10/13/2004 20:16 EDT) Refractometer SG,Urine 1.002(L) 1.005 - 1.02 [facility] Comment: Refractometer specific gravity Results greater than 1.035 suggest possible interference from glucose or radiographic dye. 10/13/2004 20:1 6 EDT 10/13/2004 20:16 EDT Hilton Álvarez MD URINALYSIS ORDERAB LES Performing Organization Address [facility] de Phone Number [facility] [address] [place] [address] * OSMOLALITY, URINE (10/13/2004 20:16 EDT) Osmolality, Ur 87 MOS/KG [facility] 10/13/2004 20:1 6 EDT 10/13/2004 20:16 EDT Hilton Álvarez MD URINALYSIS ORDERAB LES Performing Organization Address [facility] Co de Phone Number [facility] [address] [place] [address] * SODIUM, URINE RANDOM (10/13/2004 20:16 EDT) Sodium, Ur 18.0 mEq/L [facility] 10/13/2004 20:1 6 EDT 10/13/2004 20:16 EDT Hilton Álvarez MD URINALYSIS ORDERAB LES Performing Organization Address City/[facility] Co de Phone Number [facility] [address] [place] [address] * SODIUM (10/13/2004 18:38 EDT) Sodium 144 136 - 145 mEq/L [facility] 10/13/2004 18:3 8 EDT 10/13/2004 18:38 EDT Hilton Álvarez MD CHEMISTRY & BLOOD GAS ORDERABLES Performing Organization Address [facility] Co de Phone Number [facility] [address] [place] [address] * SODIUM, URINE RANDOM (10/13/2004 17:34 EDT) Sodium, Ur 17.0 mEq/L [facility] 10/13/2004 17:3 4 EDT 10/13/2004 17:34 EDT Hilton Álvarez MD URINALYSIS ORDERAB LES Performing Organization Address [facility] Co de Phone Number [facility] [address] [place] [address] * OSMOLALITY, URINE (10/13/2004 15:42 EDT) Osmolality, Ur 145 MOS/KG [facility] 10/13/2004 15:4 2 EDT 10/13/2004 15:42 EDT Hilton Álvarez MD URINALYSIS ORDERAB LES Performing Organization Address [facility] Co de Phone Number [facility] [address] [place] [address] * SODIUM, URINE RANDOM (10/13/2004 15:42 EDT) Sodium, Ur 16.0 mEq/L [facility] 10/13/2004 15:4 2 EDT 10/13/2004 15:42 EDT Hilton Álvarez MD URINALYSIS ORDERAB LES Performing Organization Address [facility] de Phone Number [facility] [address] [place] [address] * (ABNORMAL) PHENYTOIN (10/13/2004 15:33 EDT) Phenytoin 15.4 ug/ml [facility] Comment:Sample retested, res ult confirmed Calculated Phenytoin 22.6(HH) ug/ml [facility] Comment: Calculated phenytoin is adjusted for albumin level. Phenytoin levels may be further altered by severe renal failure (CrCl<10 ml/min). Consult pharmacy for renal or therapeutic dosing questions. Sample retested, result confirmed 10/13/2004 15:3 3 EDT 10/13/2004 15:33 EDT Hilton Álvarez MD CHEMISTRY & BLOOD GAS ORDERABLES Performing Organization Address [facility] de Phone Number [facility] [address] [place] [address] * OSMOLALITY (10/13/2004 15:33 EDT) Osmolality Cintia 294 MOS/KG [facility] 10/13/2004 15:3 3 EDT 10/13/2004 15:33 EDT Hilton Álvarez MD CHEMISTRY & BLOOD GAS ORDERABLES Performing Organization Address [facility] de Phone Number [facility] [address] [place] [address] * (ABNORMAL) ELECTROLYTES (10/13/2004 15:33 EDT) Sodium 139 136 - 145 mEq/L [facility] Potassium 3.5(L) 3.6 - 5.2 mEq/L [facility] Chloride 100 96 - 110 mEq/L [facility] CO2 31 24 - 32 mEq/L [facility] 10/13/2004 15:3 3 EDT 10/13/2004 15:33 EDT Hilton Álvarez MD CHEMISTRY & BLOOD GAS ORDERABLES Performing Organization Address [facility] de Phone Number [facility] [address] [place] [address] * OSMOLALITY (10/13/2004 12:01 EDT) [facility] Osmolality Cintia 280 MOS/KG [facility] 10/13/2004 12:0 1 EDT 10/13/2004 12:01 EDT Hilton Álvarez MD CHEMISTRY & BLOOD GAS ORDERABLES Performing Organization Address [facility] de Phone Number [facility] [address] [place] [address] * (ABNORMAL) ELECTROLYTES (10/13/2004 12:01 EDT) [facility] Sodium 135(L) 136 - 145 mEq/L [facility] Potassium 3.7 3.6 - 5.2 mEq/L [facility] Chloride 100 96 - 110 mEq/L [facility] CO2 30 24 - 32 mEq/L [facility] 10/13/2004 12:0 1 EDT 10/13/2004 12:01 EDT Hilton Álvarez MD CHEMISTRY & BLOOD GAS ORDERABLES Performing Organization Address [facility] de Phone Number [facility] [address] [place] [address] * BACTERIAL CULTURE/SMEAR, RESPIRATORY (10/13/2004 12:00 EDT) [facility] Specimen Description Sputum [facility] Gram Smear Result Many Polys Few Squamous epithelial cells Alveolar macrophages present Respiratory epithelial cells present No bacteria seen [facility] Result No growth [facility] Report Status Final [id number] [facility] 10/13/2004 12:0 0 EDT 10/13/2004 12:21 EDT Hilton Álvarez MD MICROBIOLOGY - GEN ERAL ORDERABLES Performing Organization Address [facility] de Phone Number [facility] [address] [place] [address] * UA REFLEX (10/13/2004 12:00 EDT) UA Billing Microscopic not indicated. [facility] 10/13/2004 12:0 0 EDT 10/13/2004 12:00 EDT Hilton Álvarez MD URINALYSIS ORDERAB LES Performing Organization Address [facility] de Phone Number [facility] [address] [place] [address] * SODIUM, URINE RANDOM (10/13/2004 12:00 EDT) Sodium, Ur 49.0 mEq/L [facility] 10/13/2004 12:0 0 EDT 10/13/2004 12:00 EDT Hilton Álvarez MD URINALYSIS ORDERAB LES Performing Organization Address [facility] de Phone Number [facility] [address] [place] [address] * URINALYSIS (10/13/2004 12:00 EDT) Pathologist [facility] Color, UA Yellow [facility] Clarity, UA Cloudy [facility] Glucose, UA Norm NORM [facility] Bilirubin, UA Neg NEG [facility] Ketones, UA Neg NEG [facility] Specific [facility], Urine 1.020 1.005 - 1.02 [facility] Blood, UA Neg NEG [facility] pH, UA 6.5 5.0 - 9.0 [facility] Protein, UA Neg NEG [facility] Urobilinogen, UA Norm NORM mg/dL [facility] Nitrite, UA Neg NEG [facility] Leuk Esterase Neg NEG [facility] 10/13/2004 12:0 0 EDT 10/13/2004 12:00 EDT Hilton Álvarez MD URINALYSIS ORDERAB LES Performing Organization Address [facility] de Phone Number [facility] [address] [place] [address] * CT HEAD WO CONTRAST (10/13/2004 10:50 EDT) Anatomical Region Laterality Modality Other 10/13/2004 10:5 0 EDT Impressions 03/02/2009 13:29 EDT IMPRESSION: 1. S/P most recent right frontal temporal craniotomy changes with resolving pneumocephalus. 2. Subtle area of cytotoxic edema in the territories of the posterior cerebral arteries bilaterally, more on the left side. 3. Opacification of the paranasal sinuses, no change. 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 TECHNIQUE: Transverse non-contrast CT scans of the brain were performed from the foramen magnum to the vertex. COMPARISON FILMS: 10/12/04. FINDINGS: Subtle area of cytotoxic edema is seen in the distribution of both posterior cerebral arteries, more on the left side. There is no intracranial bleed. There is no midline shift. Small amount of free air is again identified intracranially. Bone window views show opacification of the paranasal sinuses as described previously. A vascular clip is again identified near the dorsum sella. Dr. Marvin Dowd was notified about these new CT findings on 10/13/04 at 1245. /[facility] Narrative 03/02/2009 13:29 EDT H/O TUMOR RESECTION R/O BLEED CT OF THE HEAD WITHOUT CONTRAST: 10/13/04 1038. Procedure Note Sandra Zavala MD - 03/02/2009 H/O TUMOR RESECTION R/O BLEED CT OF THE HEAD WITHOUT CONTRAST: 10/13/04 1038. IMPRESSION IMPRESSION: 1. S/P most recent right frontal temporal craniotomy changes with resolving pneumocephalus. 2. Subtle area of cytotoxic edema in the territories of the posterior cerebral arteries bilaterally, more on the left side. 3. Opacification of the paranasal sinuses, no change. 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 TECHNIQUE: Transverse non-contrast CT scans of the brain were performed from the foramen magnum to the vertex. COMPARISON FILMS: 10/12/04. FINDINGS: Subtle area of cytotoxic edema is seen in the distribution of both posterior cerebral arteries, more on the left side. There is no intracranial bleed. There is no midline shift. Small amount of free air is again identified intracranially. Bone window views show opacification of the paranasal sinuses as described previously. A vascular clip is again identified near the dorsum sella. Dr. Marvin Dowd was notified about these new CT findings on 10/13/04 at 1245. /[facility] Trice Scott MD IMG CT ORDERABLES * BACTERIAL CULTURE, BLOOD (10/13/2004 10:25 EDT) [facility] Specimen Description Blood Right Arm Pediatric bottle received [facility] Result No growth [facility] Report Status Final [id number] [facility] 10/13/2004 10:2 5 EDT 10/13/2004 11:42 EDT Hilton Álvarez MD MICROBIOLOGY - GEN ERAL ORDERABLES Performing Organization Address [facility] de Phone Number [facility] [address] [place] [address] * BACTERIAL CULTURE, BLOOD (10/13/2004 10:15 EDT) [facility] Specimen Description Blood Arterial Line [facility] Result No growth [facility] Report Status Final [id number] [facility] 10/13/2004 10:1 5 EDT 10/13/2004 11:41 EDT Hilton Álvarez MD MICROBIOLOGY - GEN ERAL ORDERABLES Performing Organization Address [facility] de Phone Number [facility] [address] [place] [address] * (ABNORMAL) REFRACTOMETER SPECIFIC GRAVITY, URINE (10/13/2004 8:19 EDT) [facility] Refractometer SG,Urine 1.052(H) 1.005 - 1.02 [facility] Comment: Refractometer specific gravity Results greater than 1.035 suggest possible interference from glucose or radiographic dye. 10/13/2004 8:19 EDT 10/13/2004 8:19 EDT Hilton Álvarez MD URINALYSIS ORDERAB LES Performing Organization Address [facility] de Phone Number [facility] [address] [place] [address] * OSMOLALITY (10/13/2004 8:16 EDT) Osmolality Cintia 287 MOS/KG [facility] 10/13/2004 8:16 EDT 10/13/2004 8:16 EDT Hilton Álvarez MD CHEMISTRY & BLOOD GAS ORDERABLES Performing Organization Address [facility] Phone Number [facility] [address] [place] [address] * (ABNORMAL) ELECTROLYTES (10/13/2004 8:16 EDT) Sodium 133(L) 136 - 145 mEq/L [facility] Potassium 3.8 3.6 - 5.2 mEq/L [facility] Chloride 99 96 - 110 mEq/L [facility] CO2 27 24 - 32 mEq/L [facility] 10/13/2004 8:16 EDT 10/13/2004 8:16 EDT Hilton Álvarez MD CHEMISTRY & BLOOD GAS ORDERABLES Performing Organization Address [facility] Phone Number [facility] [address] [place] [address] * PORTABLE CHEST 1 VIEW (10/13/2004 7:00 EDT) Anatomical Region Laterality Modality Other 10/13/2004 7:00 EDT Impressions 03/02/2009 13:29 EDT IMPRESSION: Mild bilateral bibasilar atelectasis, improving on the right, but new on the left. /jv Narrative 03/02/2009 13:29 EDT 14 YO MALE W/P RESECTION ON CRANIAL TUBOR INTUBATED ON VENT CHECK TUBE / INFILTRATE PORTABLE CHEST 1 VIEW 10/13/04 0700 The endotracheal tube tip is 4.5cm from the davon. The NG tube tip is along the greater curvature of the stomach. The right base has shown some clearing since the comparison film of 10/12/04 at 2330 hours. The lungs are still low volume and there is now increasing atelectatic change at the left base. Procedure Note Marlene Mensah MD - 03/02/2009 14 YO MALE W/P RESECTION ON CRANIAL TUBOR INTUBATED ON VENT CHECK TUBE / INFILTRATE PORTABLE CHEST 1 VIEW 10/13/04 0700 The endotracheal tube tip is 4.5cm from the davon. The NG tube tip is along the greater curvature of the stomach. The right base has shown some clearing since the comparison film of 10/12/04 at 2330 hours. The lungs are still low volume and there is now increasing atelectatic change at the left base. IMPRESSION IMPRESSION: Mild bilateral bibasilar atelectasis, improving on the right, but new on the left. /perlav Alexus Davye MD IMG DIAGNOSTIC IMAG ING ORDERABLES * PTT (10/13/2004 5:52 EDT) PTT 27 23 - 34 secs [facility] Comment:Therapeutic Heparin range: 72-120 seconds 10/13/2004 5:52 EDT 10/13/2004 5:52 EDT Hilton Álvarez MD HEMATOLOGY & PF4 O RDERABLES [facility] [address] [place] [address] * (ABNORMAL) PROTIME (10/13/2004 5:52 EDT) Pro Time 16.1(H) 12.3 - 14.7 secs [facility] I.N.R. 1.3(H) 0.9 - 1.1 Ratio [facility] Comment: Moderate Intensity Coumadin INR = 2.0-3.0 Adjustments in anticoagulant therapy dose should be based upon the INR and NOT the Pro Time. 10/13/2004 5:52 EDT 10/13/2004 5:52 EDT Hilton lÁvarez MD HEMATOLOGY & PF4 O RDERABLES Performing Organization Address [facility] Co de Phone Number [facility] [address] [place] [address] * CREATININE (10/13/2004 5:52 EDT) Creatinine 0.7 0.6 - 1.2 mg/dl [facility] 10/13/2004 5:52 EDT 10/13/2004 5:52 EDT Hilton Álvarez MD HISTORICAL LAB FOR SQ LOAD Performing Organization Address [facility] de Phone Number [facility] [address] [place] [address] * (ABNORMAL) HEMAGRAM (10/13/2004 5:52 EDT) WBC 13.29(H) 4.5 - 13.0 K/cmm [facility] RBC 3.59(L) 4.50 - 5.30 M/cmm [facility] Hemoglobin 10.2(L) 13.0 - 16.0 gm/dl [facility] HCT 29.4(L) 37.0 - 49.0 % [facility] MCV 82 78 - 98 fl [facility] MCH 28.3 pg [facility] MCHC 34.5 gm/dl [facility] PLT 330(H) 156 - 312 K/cmm [facility] RDW-CV 15.8 % [facility] 10/13/2004 5:52 EDT 10/13/2004 5:52 EDT Hilton Álvarez MD HEMATOLOGY & PF4 O RDERABLES Performing Organization Address [facility] Co de Phone Number [facility] [address] [place] [address] * BUN (10/13/2004 5:52 EDT) BUN 16 8 - 21 mg/dl [facility] 10/13/2004 5:52 EDT 10/13/2004 5:52 EDT Hilton Álvarez MD CHEMISTRY & BLOOD GAS ORDERABLES Performing Organization Address [facility] de Phone Number [facility] [address] [place] [address] * (ABNORMAL) BLOOD GAS, G3 ISTAT (10/13/2004 4:34 EDT) pH, i-STAT 7.50(H) 7.35 - 7.45 [facility] pCO2, i-STAT 36 35 - 45 mmHg [facility] pO2, i-STAT 125(H) 85 - 100 mmHg [facility] TCO2, i-STAT 29 mEq/L [facility] O2 Saturation 99 % [facility] Temperature 38.9 C [facility] FIO2 .50 [facility] Vent Support MODE:IMV,TYPE:V olume,RATE=13,P EEP=05 [facility] Sample Type Arterial [facility] design printer balloon ID [id number] Test Performed by Respiratory [facility] 10/13/2004 4:34 EDT 10/13/2004 5:03 EDT Hilton Álvarez MD CHEMISTRY & BLOOD GAS ORDERABLES Performing Organization Address [facility] Co de Phone Number [facility] [address] [place] [address] * (ABNORMAL) REFRACTOMETER SPECIFIC GRAVITY, URINE (10/13/2004 4:33 EDT) Refractometer SG,Urine 1.036(H) 1.005 - 1.02 [facility] Comment: Refractometer specific gravity Results greater than 1.035 suggest possible interference from glucose or radiographic dye. 10/13/2004 4:33 EDT 10/13/2004 4:33 EDT Hilton Álvarez MD URINALYSIS ORDERAB LES Performing Organization Address [facility] Co de Phone Number [facility] [address] [place] [address] * SODIUM, URINE RANDOM (10/13/2004 4:33 EDT) Pathologist [facility] Sodium, Ur 168.0 mEq/L [facility] 10/13/2004 4:33 EDT 10/13/2004 4:33 EDT Hilton Álvarez MD URINALYSIS ORDERAB LES Performing Organization Address [facility] de Phone Number [facility] [address] [place] [address] * OSMOLALITY (10/13/2004 4:15 EDT) Pathologist [facility] Osmolality Cintia 287 MOS/KG [facility] 10/13/2004 4:15 EDT 10/13/2004 4:33 EDT Hilton Álvarez MD CHEMISTRY & BLOOD GAS ORDERABLES Performing Organization Address [facility] de Phone Number [facility] [address] [place] [address] * (ABNORMAL) ELECTROLYTES (10/13/2004 4:15 EDT) Sodium 135(L) 136 - 145 mEq/L [facility] Potassium 3.7 3.6 - 5.2 mEq/L [facility] Chloride 101 96 - 110 mEq/L [facility] CO2 25 24 - 32 mEq/L [facility] 10/13/2004 4:15 EDT 10/13/2004 4:33 EDT Hilton Álvarez MD CHEMISTRY & BLOOD GAS ORDERABLES Performing Organization Address [facility] de Phone Number [facility] [address] [place] [address] * SODIUM (10/13/2004 2:03 EDT) Pathologist [facility] Sodium 138 136 - 145 mEq/L [facility] 10/13/2004 2:03 EDT 10/13/2004 2:03 EDT Hilton Álvarez MD CHEMISTRY & BLOOD GAS ORDERABLES Performing Organization Address [facility] de Phone Number [facility] [address] [place] [address] * (ABNORMAL) BLOOD GAS, G3 ISTAT (10/13/2004 0:01 EDT) pH, i-STAT 7.48(H) 7.35 - 7.45 [facility] pCO2, i-STAT 35 35 - 45 mmHg [facility] pO2, i-STAT 115(H) 85 - 100 mmHg [facility] TCO2, i-STAT 27 mEq/L [facility] O2 Saturation 99 % TRUE [facility] Temperature 36.2 C [facility] FIO2 .50 [facility] Vent Support MODE:IMV,TYPE:V olume,RATE=13,P EEP=05 [facility] Sample Type Arterial [facility] design printer balloon ID [id number] Test Performed by Respiratory [facility] 10/13/2004 0:01 EDT 10/13/2004 5:02 EDT Hilton Álvarez MD CHEMISTRY & BLOOD GAS ORDERABLES Performing Organization Address [facility] de Phone Number [facility] [address] [place] [address] * PORTABLE CHEST 1 VIEW (10/12/2004 23:30 EDT) Anatomical Region Laterality Modality Other 10/12/2004 23:3 0 EDT Impressions 03/02/2009 13:28 EDT IMPRESSION: 1. New mild right lower lobe atelectasis. 2. Satisfactory positioning of tubes. /jv Narrative 03/02/2009 13:28 EDT HX BRAIN TUMOR S/P INTUBATION CHECK ET TUBE R/O EDEMA/EFFUSION PORTABLE CHEST 1 VIEW 10/12/04 8500 Comparison is made with 10/10/04. The endotracheal tube tip is approximately 3.5cm from the davon. A PICC line has its tip in the right atrium. There is some new subsegmental atelectasis at the right base medially. The left base is clear, despite lower lung volumes bilaterally compared with 10/10. A new NG tube has its tip along the greater curvature of the stomach. Procedure Note Marlene Mensah MD - 03/02/2009 HX BRAIN TUMOR S/P INTUBATION CHECK ET TUBE R/O EDEMA/EFFUSION PORTABLE CHEST 1 VIEW 10/12/04 2330 Comparison is made with 10/10/04. The endotracheal tube tip is approximately 3.5cm from the davon. A PICC line has its tip in the right atrium. There is some new subsegmental atelectasis at the right base medially. The left base is clear, despite lower lung volumes bilaterally compared with 10/10. A new NG tube has its tip along the greater curvature of the stomach. IMPRESSION IMPRESSION: 1. New mild right lower lobe atelectasis. 2. Satisfactory positioning of tubes. /liu Trice Scott MD IMG DIAGNOSTIC [facility] ORDERABLES * CT HEAD WO CONTRAST (10/12/2004 23:12 EDT) Anatomical Region Laterality Modality Other 10/12/2004 23:1 2 EDT Impressions 03/02/2009 13:28 EDT IMPRESSION: 1. 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 2. Pneumocephalus. 3. Enlarged sella turcica. 4. Opacification of the sphenoid, left maxillary, right ethmoid sinuses. CLINICAL HISTORY: Craniotomy for tumor resection. Follow-up examination. TECHNIQUE: Transverse non-contrast CT scans of the brain were performed from the foramen magnum to the vertex. COMPARISON FILMS: 10/05/04. FINDINGS: Craniotomy changes are identified in the right frontal and temporal bones. A vascular clip is identified near the right posterior clinoid. A small amount of free air is identified in the cranial cavity. Air is also seen in the right internal auditory canal. Sella turcica is enlarged. There is no intracranial bleed. Bone window views show complete opacification of the sphenoid, right maxillary, left ethmoid sinuses. The ventricles are age-appropriate. /[facility] Narrative 03/02/2009 13:28 EDT S/P SUPRACELLAR TUMOR RESECTION BLEED CT OF THE HEAD WITHOUT CONTRAST, 10/12/04, 2129 Procedure Note Sandra Zavala MD - 03/02/2009 S/P SUPRACELLAR TUMOR RESECTION BLEED CT OF THE HEAD WITHOUT CONTRAST, 10/12/04, 2129 IMPRESSION IMPRESSION: 1. 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 2. Pneumocephalus. 3. Enlarged sella turcica. 4. Opacification of the sphenoid, left maxillary, right ethmoid sinuses. CLINICAL HISTORY: Craniotomy for tumor resection. Follow-up examination. TECHNIQUE: Transverse non-contrast CT scans of the brain were performed from the foramen magnum to the vertex. COMPARISON FILMS: 10/05/04. FINDINGS: Craniotomy changes are identified in the right frontal and temporal bones. A vascular clip is identified near the right posterior clinoid. A small amount of free air is identified in the cranial cavity. Air is also seen in the right internal auditory canal. Sella turcica is enlarged. There is no intracranial bleed. Bone window views show complete opacification of the sphenoid, right maxillary, left ethmoid sinuses. The ventricles are age-appropriate. /[facility] Tony Gómez MD IMG CT ORDERABLES * OSMOLALITY, URINE (10/12/2004 23:00 EDT) Osmolality, Ur 803 MOS/KG [facility] 10/12/2004 23:0 0 EDT 10/12/2004 23:25 EDT Hilton Álvarez MD URINALYSIS ORDERAB LES [facility] [address] [place] [address] * SODIUM, URINE RANDOM (10/12/2004 23:00 EDT) Pathologist [facility] Sodium, Ur 115.0 mEq/L [facility] 10/12/2004 23:0 0 EDT 10/12/2004 23:25 EDT Hilton Álvarez MD URINALYSIS ORDERAB LES Performing Organization Address [facility] Phone Number [facility] [address] [place] [address] * PTT (10/12/2004 23:00 EDT) Pathologist [facility] PTT 28 23 - 34 secs [facility] Comment:Therapeutic Heparin range: 72-120 seconds 10/12/2004 23:0 0 EDT 10/12/2004 23:25 EDT Hilton Álvarez MD HEMATOLOGY & PF4 O RDERABLES Performing Organization Address [facility] Phone Number [facility] [address] [place] [address] * (ABNORMAL) PROTIME (10/12/2004 23:00 EDT) Pathologist [facility] Pro Time 17.5(H) 12.3 - 14.7 secs [facility] I.N.R. 1.4(H) 0.9 - 1.1 Ratio [facility] Comment: Moderate Intensity Coumadin INR = 2.0-3.0 Adjustments in anticoagulant therapy dose should be based upon the INR and NOT the Pro Time. 10/12/2004 23:0 0 EDT 10/12/2004 23:25 EDT Hilton Álvarez MD HEMATOLOGY & PF4 O RDERABLES Performing Organization Address [facility] de Phone Number [facility] [address] [place] [address] * OSMOLALITY (10/12/2004 23:00 EDT) Osmolality Cintia 294 MOS/KG SHERI GARCIA 10/12/2004 23:0 0 EDT 10/12/2004 23:25 EDT Hilton Álvarez MD CHEMISTRY & BLOOD GAS ORDERABLES Performing Organization Address [facility] de Phone Number [facility] [address] [place] [address] * ELECTROLYTES (10/12/2004 23:00 EDT) Sodium 136 136 - 145 mEq/L [facility] Potassium 3.9 3.6 - 5.2 mEq/L [facility] Chloride 103 96 - 110 mEq/L [facility] CO2 26 24 - 32 mEq/L [facility] 10/12/2004 23:0 0 EDT 10/12/2004 23:25 EDT Hilton Álvarez MD CHEMISTRY & BLOOD GAS ORDERABLES Performing Organization Address [facility] Phone Number [facility] [address] [place] [address] * CREATININE (10/12/2004 23:00 EDT) Creatinine 0.8 0.6 - 1.2 mg/dl [facility] 10/12/2004 23:0 0 EDT 10/12/2004 23:25 EDT Hilton Álvarez MD HISTORICAL LAB FOR SQ LOAD Performing Organization Address [facility] de Phone Number [facility] [address] [place] [address] * (ABNORMAL) HEMAGRAM (10/12/2004 23:00 EDT) WBC 16.05(H) 4.5 - 13.0 K/cmm [facility] RBC 3.73(L) 4.50 - 5.30 M/cmm [facility] Hemoglobin 10.3(L) 13.0 - 16.0 gm/dl [facility] HCT 30.8(L) 37.0 - 49.0 % [facility] MCV 83 78 - 98 fl [facility] MCH 27.6 pg [facility] MCHC 33.5 gm/dl [facility] PLT 366(H) 156 - 312 K/cmm [facility] RDW-CV 15.6 % [facility] 10/12/2004 23:0 0 EDT 10/12/2004 23:25 EDT Hilton Álvarez MD HEMATOLOGY & PF4 O RDERABLES Performing Organization Address [facility] de Phone Number [facility] [address] [place] [address] * BUN (10/12/2004 23:00 EDT) BUN 18 8 - 21 mg/dl [facility] 10/12/2004 23:0 0 EDT 10/12/2004 23:25 EDT Hilton Álvarez MD CHEMISTRY & BLOOD GAS ORDERABLES Performing Organization Address [facility] de Phone Number [facility] [address] [place] [address] * CT ANGIO HEAD (10/12/2004 22:49 EDT) Anatomical Region Laterality Modality Other 10/12/2004 22:4 9 EDT Narrative 03/02/2009 13:28 EDT 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 VESSELS CT ANGIOGRAPHY OF THE [place]: 10/12/2004, 22:35 PM IMPRESSIONS: Anatomical variation of the [place], but no vascular occlusion is demonstrated. CLINICAL HISTORY: Status post craniopharyngeal resection with clipping bleeding vessel. Evaluate intracranial circulation. TECHNIQUE: Dynamic contrast enhanced scans of the [place] were obtained with off line three dimensional and multiplanar reformations. FINDINGS: The vascular clip is again identified in the region of the dorsum sella. Posterior cerebral arteries are outlined. The right posterior cerebral artery fills from the right internal carotid artery. The left posterior cerebral artery fills from the basilar artery. Both superior cerebellar arteries are visualized. The left vertebral artery is dominant. 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 No abnormalities are demonstrated in the visualized portion of the anterior and middle cerebral arteries. The left vertebral artery is dominant. The right vertebral artery is not visualized, likely hypoplastic and supplying only the right PICA. /tns Procedure Note Sandra Zavala MD - 03/02/2009 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 VESSELS CT ANGIOGRAPHY OF THE [place]: 10/12/2004, 22:35 PM IMPRESSIONS: Anatomical variation of the [place], but no vascular occlusion is demonstrated. CLINICAL HISTORY: Status post craniopharyngeal resection with clipping bleeding vessel. Evaluate intracranial circulation. TECHNIQUE: Dynamic contrast enhanced scans of the [place] were obtained with off line three dimensional and multiplanar reformations. FINDINGS: The vascular clip is again identified in the region of the dorsum sella. Posterior cerebral arteries are outlined. The right posterior cerebral artery fills from the right internal carotid artery. The left posterior cerebral artery fills from the basilar artery. Both superior cerebellar arteries are visualized. The left vertebral artery is dominant. 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 No abnormalities are demonstrated in the visualized portion of the anterior and middle cerebral arteries. The left vertebral artery is dominant. The right vertebral artery is not visualized, likely hypoplastic and supplying only the right PICA. /tns Trice Scott MD [facility] CT ORDERABLES * (ABNORMAL) BLOOD GAS, EG6 ISTAT (10/12/2004 19:31 EDT) pH, i-STAT 7.56(H) 7.35 - 7.45 [facility] pCO2, i-STAT 23(L) 35 - 45 mmHg [facility] pO2, i-STAT 160(H) 85 - 100 mmHg [facility] TCO2, i-STAT 21 mEq/L FRANKIE Hoffman [facility] O2 Saturation 100 % FLEMARSHA STEVENS [facility] Sodium, i-STAT 135(L) 136 - 145 mEq/L [facility] Potassium, i-STAT 4.1 3.6 - 5.2 mEq/L [facility] Hematocrit,iSTA T 22(LL) 37 - 49 % [facility] Temperature Body Temp not noted; 37 degrees assumed. C [facility] FIO2 NOT GIVEN [facility] Sample Type Arterial [facility] design printer balloon ID [id number] Test performed by Anesthesia. [facility] 10/12/2004 19:3 1 EDT 10/13/2004 7:36 EDT Hilton Álvarez MD CHEMISTRY & BLOOD GAS ORDERABLES Performing Organization Address [facility] de Phone Number [facility] [address] [place] [address] * (ABNORMAL) BLOOD GAS, EG6 ISTAT (10/12/2004 16:39 EDT) pH, i-STAT 7.52(H) 7.35 - 7.45 [facility] pCO2, i-STAT 25(L) 35 - 45 mmHg [facility] pO2, i-STAT 93 85 - 100 mmHg [facility] TCO2, i-STAT 21 mEq/L FLENANCY Hoffman [facility] O2 Saturation 98 % FLEMARSHA STEVENS [facility] Sodium, i-STAT 134(L) 136 - 145 mEq/L [facility] Potassium, i-STAT 3.9 3.6 - 5.2 mEq/L [facility] Hematocrit,iSTA T 25(L) 37 - 49 % [facility] Temperature Body Temp not noted; 37 degrees assumed. C [facility] FIO2 NOT GIVEN [facility] Sample Type Arterial [facility] design printer balloon ID [id number] Test performed by Anesthesia. [facility] 10/12/2004 16:3 9 EDT 10/13/2004 7:33 EDT Hilton Álvarez MD CHEMISTRY & BLOOD GAS ORDERABLES Performing Organization Address [facility] Co de Phone Number [facility] [address] [place] [address] * (ABNORMAL) BLOOD GAS, EG6 ISTAT (10/12/2004 15:29 EDT) pH, i-STAT 7.47(H) 7.35 - 7.45 [facility] pCO2, i-STAT 33(L) 35 - 45 mmHg [facility] pO2, i-STAT 154(H) 85 - 100 mmHg [facility] TCO2, i-STAT 25 mEq/L [facility]NANCY R [facility] O2 Saturation 100 % FLEMARSHA ER [facility] Sodium, i-STAT 137 136 - 145 mEq/L [facility] Potassium, i-STAT 3.9 3.6 - 5.2 mEq/L [facility] Hematocrit,iSTA T 27(L) 37 - 49 % [facility] Temperature Body Temp not noted; 37 degrees assumed. C [facility] FIO2 NOT GIVEN [facility] Sample Type Arterial [facility] design printer balloon ID [id number] Test performed by Anesthesia. [facility] 10/12/2004 15:2 9 EDT 10/13/2004 7:32 EDT Hilton Álvarez MD CHEMISTRY & BLOOD GAS ORDERABLES Performing Organization Address [facility] Co de Phone Number [facility] [address] [place] [address] * GLUCOSE, GLUCOMETER (10/12/2004 15:21 EDT) Glucose, Fingerstick 109 70 - 110 mg/dl [facility] Event Coordinator ID [id number] Test Performed by Nursing Services [facility] 10/12/2004 15:2 1 EDT 10/13/2004 7:27 EDT Hilton Álvarez MD CHEMISTRY & BLOOD GAS ORDERABLES Performing Organization Address [facility] Co de Phone Number [facility] [address] [place] [address] * SURGICAL PATHOLOGY (10/12/2004 0:00 EDT) Pathology Report: SURGICAL PATHOLOGY REPORT Reports generated via electronic interface contain original data; however they are lacking the format of the original report. Caution should be taken when reading/interpreti ng unformatted reports. Name: ? MIGUEL ANGEL BURGOS ? Accession #: ? [id number] ? : ? 1990 (Age: 14) ??M ? Collect Date: ? 10/12/2004 ? Location: ? B005 ? Receive Date: ? 10/13/2004 ? Provider: HILTON ÁLVAREZ MD Copy to: TOO DIAZ MD ? Final Pathologic Diagnosis: A. ?Suprasellar cranial mass, biopsy: 1. 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 ??See comment. B. ?Suprasellar cranial mass, biopsy: 1. ?Residual tumor consistent with craniopharyngioma. 2. ?Nodular fibrosis with cholesterol clefting, foreign body giant cell reaction, and hemosiderin deposition. 3. ?Fragments of benign brain tissue. Comment: ? This specimen exhibits a haphazard intermingling of dense fibrosis, cholesterol clefting, hemorrhage, and hemosiderin. ??Cholesterol clefting is a non-specific finding and may represent the accumulation of degraded red blood cell membranes. ??At the margin of the fibrotic and reactive tissue is a thin rim of nested cells and ghost squamous cells compatible with residual craniopharynioma. ??Dr. Delgado Bryson has reviewed this case and concurs with the findings and interpretation. ??(Dr. Sanchez)/klb Document reviewed and electronically signed by: YO DAVILA MD Report ??Date: 10/17/2004 17:51 By the signature above, the attending physician certifies that he/she has personally conducted a gross and/or microscopic examination of the described specimens and rendered or confirmed the above diagnosis. Specimen(s) Received: A. ?Suprasellar cranial mass B. ?Suprasellar cranial mass Clinical History: ? Suprasellar cranial mass Intraoperative Interpretation: ? FS1, SP1. Brain, suprasellar cranial mass, biopsy: giant cell reaction with cholesterol clefting; defer to permanents ??Dr. Daniela Duff; 10/12/04: 5:50 pm ??called to Dr. Álvarez ? I personally reviewed the slides and resident' s interpretation of FS1 and SP1 with the resident and agree with the diagnosis ??Dr. Lizette Barrera; 10/12/04; 5:53 pm. Gross Description: ? Received fresh on gauze labelled Barrup and suprasellar mass are multiple orozco, soft tissue fragments measuring 0.6 x 0.6 x 0.2 cm in aggregate. Ballet Soloist tissue is submitted for scrape preparation and frozen section as SP1 and FS1 with the interpretation as above. ??The frozen section and SP samples are submitted as (A1) and the remaining tissue is submitted as (A2). Received in normal saline labelled Barr[place] and suprasellar cranial mass are multiple frayed, fibrous soft tissue fragments which measure in aggregate 3.0 x 2.0 x 2.0 cm. ??The specimen is submitted entirely as (B1) through (B4). ??(Dr. Sanchez)/klb End of Report [facility] 10/12/2004 10/13/2004 10: 08 EDT Hilton Álvarez MD PATHOLOGY ORDERABL ES [facility] [address] [place] [address] * CHEST PA (10/10/2004 14:35 EDT) Anatomical Region Laterality Modality Other 10/10/2004 14:3 5 EDT Narrative 03/03/2009 10:24 EDT CYST R/O PICC PLACEMENT RIGHT BASILIC PA CHEST, 10/10/04 HISTORY: Patient status post PICC placement. FINDINGS: There is a right PIC catheter with its tip in the lower SVC near the right atrial junction. The cardiomediastinal silhouette is normal and the lungs are clear. The bony structures appear normal for age. /[facility] Procedure Note Delgado Valdes Jr., MD / Maxi Kirby MD - 03/03/2009 CYST R/O PICC PLACEMENT RIGHT BASILIC PA CHEST, 10/10/04 HISTORY: Patient status post PICC placement. FINDINGS: There is a right PIC catheter with its tip in the lower SVC near the right atrial junction. The cardiomediastinal silhouette is normal and the lungs are clear. The bony structures appear normal for age. /[facility] Hilton Álvarez MD IMG DIAGNOSTIC SHANEKA GING ORDERABLES * MR HEAD W/WO CONTRAST (10/09/2004 12:20 EDT) Anatomical Region Laterality Modality Other 10/09/2004 12:2 0 EDT Impressions 03/02/2009 11:36 EDT IMPRESSION: S/p transsphenoidal cyst drainage of a suprasellar mass. Follow-up examination. TECHNIQUE: Thin section sagittal and coronal FSE T1, coronal fat saturated FSE T2, and post contrast fat saturated coronal and sagittal FSE T1 images of the brain were performed. Dynamic contrast enhanced coronal FSE T1 weighted scans were obtained. COMPARISON FILMS: MRI of the brain on 09/17/04. FINDINGS: The sella turcica is enlarged. An inhomogeneously-enhancing, partially-calcified mass is again identified within the sella turcica, and in the suprasellar area. The tumor measures about 26 x 32mm in its largest diameter. As compared to the previous examination, this mass has significantly decreased in size. The optic chiasm displaced upward and slightly posteriorly. The sphenoid sinus is partially opacified, likely secondary to the most recent transsphenoidal surgery. /[facility] Narrative 03/02/2009 11:36 EDT S/P TRANSPENOIDAL CYST DRAINAGE OF SUPRASELLER MASS EVALUTE RESIDUAL TUMOR MRI OF THE SELLA TURCICA WITH AND WITHOUT CONTRAST: 10/09/04, 11:42AM Procedure Note Sandra Zavala MD - 03/02/2009 S/P TRANSPENOIDAL CYST DRAINAGE OF SUPRASELLER MASS EVALUTE RESIDUAL TUMOR MRI OF THE SELLA TURCICA WITH AND WITHOUT CONTRAST: 10/09/04, 11:42AM IMPRESSION IMPRESSION: S/p transsphenoidal cyst drainage of a suprasellar mass. Follow-up examination. TECHNIQUE: Thin section sagittal and coronal FSE T1, coronal fat saturated FSE T2, and post contrast fat saturated coronal and sagittal FSE T1 images of the brain were performed. Dynamic contrast enhanced coronal FSE T1 weighted scans were obtained. COMPARISON FILMS: MRI of the brain on 09/17/04. FINDINGS: The sella turcica is enlarged. An inhomogeneously-enhancing, partially-calcified mass is again identified within the sella turcica, and in the suprasellar area. The tumor measures about 26 x 32mm in its largest diameter. As compared to the previous examination, this mass has significantly decreased in size. The optic chiasm displaced upward and slightly posteriorly. The sphenoid sinus is partially opacified, likely secondary to the most recent transsphenoidal surgery. /[facility] Hilton Álvarez MD [facility] MRI ORDERABLES * REFRACTOMETER SPECIFIC GRAVITY, URINE (10/08/2004 16:00 EDT) Refractometer SG,Urine 1.022 1.005 - 1.02 [facility] Comment:Refractometer specif ic gravity 10/08/2004 16:0 0 EDT 10/08/2004 16:14 EDT Hilton Álvarez MD URINALYSIS ORDERAB LES [facility] [address] [place] [address] * OSMOLALITY, URINE (10/08/2004 8:30 EDT) Osmolality, Ur 906 MOS/KG MELONIE [facility] 10/08/2004 8:30 EDT 10/08/2004 8:40 EDT Hilton Álvarez MD URINALYSIS ORDERAB LES Performing Organization Address [facility] de Phone Number [facility] [address] [place] [address] * SODIUM, URINE RANDOM (10/08/2004 8:30 EDT) Sodium, Ur 137.0 mEq/L [facility] 10/08/2004 8:30 EDT 10/08/2004 8:40 EDT Hilton Álvarez MD URINALYSIS ORDERAB LES Performing Organization Address [facility] de Phone Number [facility] [address] [place] [address] * OSMOLALITY, URINE (10/08/2004 0:30 EDT) Osmolality, Ur 727 MOS/KG [facility] 10/08/2004 0:30 EDT 10/08/2004 0:32 EDT Hilton Álvarez MD URINALYSIS ORDERAB LES Performing Organization Address [facility] de Phone Number [facility] [address] [place] [address] * SODIUM, URINE RANDOM (10/08/2004 0:30 EDT) Sodium, Ur 186.0 mEq/L [facility] 10/08/2004 0:30 EDT 10/08/2004 0:32 EDT Hilton Álvarez MD URINALYSIS ORDERAB LES Performing Organization Address [facility] de Phone Number [facility] [address] [place] [address] * OSMOLALITY (10/08/2004 0:25 EDT) Osmolality Cintia 302 MOS/KG SHERI [facility] 10/08/2004 0:25 EDT 10/08/2004 0:32 EDT Hilton Álvarez MD CHEMISTRY & BLOOD GAS ORDERABLES Performing Organization Address [facility] de Phone Number [facility] [address] [place] [address] * (ABNORMAL) ELECTROLYTES (10/08/2004 0:25 EDT) Pathologist [facility] Sodium 145 136 - 145 mEq/L [facility] Potassium 3.2(L) 3.6 - 5.2 mEq/L [facility] Chloride 116(H) 96 - 110 mEq/L [facility] CO2 19(L) 24 - 32 mEq/L [facility] 10/08/2004 0:25 EDT 10/08/2004 0:32 EDT Hilton Álvarez MD CHEMISTRY & BLOOD GAS ORDERABLES Performing Organization Address [facility] de Phone Number [facility] [address] [place] [address] * REFRACTOMETER SPECIFIC GRAVITY, URINE (10/07/2004 19:00 EDT) Pathologist [facility] Refractometer SG,Urine 1.021 1.005 - 1.02 [facility] Comment:Refractometer specif ic gravity 10/07/2004 19:0 0 EDT 10/07/2004 19:38 EDT Hilton Álvarez MD URINALYSIS ORDERAB LES Performing Organization Address [facility] Phone Number [facility] [address] [place] [address] * OSMOLALITY, URINE (10/07/2004 19:00 EDT) Osmolality, Ur 817 MOS/KG HOLLY [facility] 10/07/2004 19:0 0 EDT 10/07/2004 19:38 EDT Hilton Álvarez MD URINALYSIS ORDERAB LES Performing Organization Address [facility] Co de Phone Number [facility] [address] [place] [address] * SODIUM, URINE RANDOM (10/07/2004 19:00 EDT) Sodium, Ur 272.0 mEq/L [facility] 10/07/2004 19:0 0 EDT 10/07/2004 19:38 EDT Hilton Álvarez MD URINALYSIS ORDERAB LES Performing Organization Address [facility] Phone Number [facility] [address] [place] [address] * OSMOLALITY (10/07/2004 19:00 EDT) Osmolality Cintia 300 MOS/KG [facility] 10/07/2004 19:0 0 EDT 10/07/2004 19:37 EDT Hilton Álvarez MD CHEMISTRY & BLOOD GAS ORDERABLES Performing Organization Address [facility] Phone Number [facility] [address] [place] [address] * ELECTROLYTES (10/07/2004 19:00 EDT) Sodium 144 136 - 145 mEq/L [facility] Potassium 3.8 3.6 - 5.2 mEq/L [facility] Chloride 109 96 - 110 mEq/L [facility] CO2 25 24 - 32 mEq/L [facility] 10/07/2004 19:0 0 EDT 10/07/2004 19:37 EDT Hilton Álvarez MD CHEMISTRY & BLOOD GAS ORDERABLES Performing Organization Address [facility] de Phone Number [facility] [address] [place] [address] * REFRACTOMETER SPECIFIC GRAVITY, URINE (10/07/2004 11:47 EDT) Refractometer SG,Urine 1.019 1.005 - 1.02 [facility] Comment: Refractometer specific gravity Results greater than 1.035 suggest possible interference from glucose or radiographic dye. 10/07/2004 11:4 7 EDT 10/07/2004 11:47 EDT Hilton Álvarez MD URINALYSIS ORDERAB LES Performing Organization Address [facility] Co de Phone Number [facility] [address] [place] [address] * OSMOLALITY, URINE (10/07/2004 11:47 EDT) Pathologist [facility] Osmolality, Ur 801 MOS/KG HO[facility] 10/07/2004 11:4 7 EDT 10/07/2004 11:47 EDT Hilton Álvarez MD URINALYSIS ORDERAB LES Performing Organization Address [facility] Co de Phone Number [facility] [address] [place] [address] * SODIUM, URINE RANDOM (10/07/2004 11:47 EDT) Pathologist [facility] Sodium, Ur 198.0 mEq/L [facility] 10/07/2004 11:4 7 EDT 10/07/2004 11:47 EDT Hilton Álvarez MD URINALYSIS ORDERAB LES Performing Organization Address [facility] Co de Phone Number [facility] [address] [place] [address] * REFRACTOMETER SPECIFIC GRAVITY, URINE (10/07/2004 4:20 EDT) Refractometer SG,Urine 1.017 1.005 - 1.02 [facility] Comment:Refractometer specif ic gravity 10/07/2004 4:20 EDT 10/07/2004 4:20 EDT Hilton Álvarez MD URINALYSIS ORDERAB LES Performing Organization Address [facility] Co de Phone Number [facility] [address] [place] [address] * OSMOLALITY, URINE (10/07/2004 4:20 EDT) Osmolality, Ur 682 MOS/KG [facility] 10/07/2004 4:20 EDT 10/07/2004 4:20 EDT Hilton Álvarez MD URINALYSIS ORDERAB LES Performing Organization Address [facility] Co de Phone Number [facility] [address] [place] [address] * SODIUM, URINE RANDOM (10/07/2004 4:20 EDT) Sodium, Ur 122.0 mEq/L [facility] 10/07/2004 4:20 EDT 10/07/2004 4:20 EDT Hilton Álvarez MD URINALYSIS ORDERAB LES Performing Organization Address [facility] Co de Phone Number [facility] [address] [place] [address] * OSMOLALITY (10/07/2004 4:20 EDT) Osmolality Cintia 304 MOS/KG SHERI ALMEIDA [facility] 10/07/2004 4:20 EDT 10/07/2004 4:20 EDT Hilton Álvarez MD CHEMISTRY & BLOOD GAS ORDERABLES Performing Organization Address [facility] Co de Phone Number [facility] [address] [place] [address] * (ABNORMAL) ELECTROLYTES (10/07/2004 4:20 EDT) Sodium 145 136 - 145 mEq/L [facility] Potassium 3.9 3.6 - 5.2 mEq/L [facility] Chloride 111(H) 96 - 110 mEq/L [facility] CO2 25 24 - 32 mEq/L [facility] 10/07/2004 4:20 EDT 10/07/2004 4:20 EDT Hilton Álvarez MD CHEMISTRY & BLOOD GAS ORDERABLES Performing Organization Address [facility] de Phone Number [facility] [address] [place] [address] * REFRACTOMETER SPECIFIC GRAVITY, URINE (10/06/2004 18:33 EST) Refractometer SG,Urine 1.021 1.005 - 1.02 [facility] Comment: Refractometer specific gravity Results greater than 1.035 suggest possible interference from glucose or radiographic dye. 10/06/2004 18:3 3 EST 10/06/2004 18:33 EST Hilton Álvarez MD URINALYSIS ORDERAB LES Performing Organization Address [facility] de Phone Number [facility] [address] [place] [address] * OSMOLALITY, URINE (10/06/2004 18:33 EST) Osmolality, Ur 782 MOS/KG HOLLY [facility] 10/06/2004 18:3 3 EST 10/06/2004 18:33 EST Hilton Álvarez MD URINALYSIS ORDERAB LES Performing Organization Address [facility] de Phone Number [facility] [address] [place] [address] * SODIUM, URINE RANDOM (10/06/2004 18:33 EST) Sodium, Ur 138.0 mEq/L [facility] 10/06/2004 18:3 3 EST 10/06/2004 18:33 EST Hilton Álvarez MD URINALYSIS ORDERAB LES Performing Organization Address [facility] de Phone Number [facility] [address] [place] [address] * OSMOLALITY (10/06/2004 18:32 EST) Osmolality Cintia 303 MOS/KG FLET ELLE [facility] 10/06/2004 18:3 2 EST 10/06/2004 18:32 EST Hilton Álvarez MD CHEMISTRY & BLOOD GAS ORDERABLES Performing Organization Address [facility] Phone Number [facility] [address] [place] [address] * (ABNORMAL) ELECTROLYTES (10/06/2004 18:32 EST) Sodium 147(H) 136 - 145 mEq/L [facility] Potassium 3.6 3.6 - 5.2 mEq/L [facility] Chloride 111(H) 96 - 110 mEq/L [facility] CO2 24 24 - 32 mEq/L [facility] 10/06/2004 18:3 2 EST 10/06/2004 18:32 EST Hilton Álvarze MD CHEMISTRY & BLOOD GAS ORDERABLES Performing Organization Address [facility] de Phone Number [facility] [address] [place] [address] * OSMOLALITY (10/06/2004 14:45 EST) Osmolality Cintia 306 MOS/KG FLET ELLE [facility] 10/06/2004 14:4 5 EST 10/06/2004 14:51 EST Hilton Álvarez MD CHEMISTRY & BLOOD GAS ORDERABLES Performing Organization Address [facility] de Phone Number [facility] [address] [place] [address] * (ABNORMAL) ELECTROLYTES (10/06/2004 14:45 EST) Sodium 146(H) 136 - 145 mEq/L [facility] Potassium 3.7 3.6 - 5.2 mEq/L [facility] Chloride 111(H) 96 - 110 mEq/L [facility] CO2 26 24 - 32 mEq/L [facility] 10/06/2004 14:4 5 EST 10/06/2004 14:51 EST Hilton Álvarez MD CHEMISTRY & BLOOD GAS ORDERABLES Performing Organization Address [facility] Phone Number [facility] [address] [place] [address] * REFRACTOMETER SPECIFIC GRAVITY, URINE (10/06/2004 14:45 EST) Refractometer SG,Urine 1.021 1.005 - 1.02 [facility] 10/06/2004 14:4 5 EST 10/06/2004 14:52 EST Hilton Álvarez MD URINALYSIS ORDERAB LES Performing Organization Address [facility] Phone Number [place] [address] * OSMOLALITY, URINE (10/06/2004 14:45 EST) Osmolality, Ur 762 MOS/KG [facility] 10/06/2004 14:4 5 EST 10/06/2004 14:52 EST Hilton Álvarez MD URINALYSIS ORDERAB LES Performing Organization Address [facility] [facility] Phone Number [facility] [address] [place] [address] * SODIUM, URINE RANDOM (10/06/2004 14:45 EST) Sodium, Ur 132.0 mEq/L [facility] 10/06/2004 14:4 5 EST 10/06/2004 14:52 EST Hilton Álvarez MD URINALYSIS ORDERAB LES Performing Organization Address [facility] Phone Number [facility] [address] [place] [address] * OSMOLALITY (10/06/2004 11:00 EST) Osmolality Cintia 299 MOS/KG [facility] 10/06/2004 11:0 0 EST 10/06/2004 11:08 EST Hilton Álvarez MD CHEMISTRY & BLOOD GAS ORDERABLES Performing Organization Address [facility] de Phone Number [facility] [address] [place] [address] * ELECTROLYTES (10/06/2004 11:00 EST) Sodium 145 136 - 145 mEq/L [facility] Potassium 3.6 3.6 - 5.2 mEq/L [facility] Chloride 110 96 - 110 mEq/L [facility] CO2 25 24 - 32 mEq/L [facility] 10/06/2004 11:0 0 EST 10/06/2004 11:08 EST Hilton Álvarez MD CHEMISTRY & BLOOD GAS ORDERABLES Performing Organization Address [facility] Phone Number [facility] [address] [place] [address] * REFRACTOMETER SPECIFIC GRAVITY, URINE (10/06/2004 11:00 EST) Refractometer SG,Urine 1.019 1.005 - 1.02 [facility] 10/06/2004 11:0 0 EST 10/06/2004 11:10 EST Hilton Álvarez MD URINALYSIS ORDERAB LES Performing Organization Address [facility] de Phone Number [facility] [address] [place] [address] * OSMOLALITY, URINE (10/06/2004 11:00 EST) Osmolality, Ur 735 MOS/KG [facility] 10/06/2004 11:0 0 EST 10/06/2004 11:10 EST Hilton Álvarez MD URINALYSIS ORDERAB LES Performing Organization Address [facility] de Phone Number [facility] [address] [place] [address] * SODIUM, URINE RANDOM (10/06/2004 11:00 EST) Sodium, Ur 140.0 mEq/L [facility] 10/06/2004 11:0 0 EST 10/06/2004 11:10 EST Hilton Álvarez MD URINALYSIS ORDERAB LES Performing Organization Address [facility] Co de Phone Number [facility] [address] [place] [address] * OSMOLALITY, URINE (10/06/2004 6:40 EST) Osmolality, Ur 522 MOS/KG [facility] 10/06/2004 6:40 EST 10/06/2004 7:03 EST Hilton Álvarez MD URINALYSIS ORDERAB LES Performing Organization Address [facility] de Phone Number [facility] [address] [place] [address] * SODIUM, URINE RANDOM (10/06/2004 6:40 EST) Sodium, Ur 92.0 mEq/L [facility] 10/06/2004 6:40 EST 10/06/2004 7:03 EST Hilton Álvarez MD URINALYSIS ORDERAB LES Performing Organization Address [facility] Co de Phone Number [facility] [address] [place] [address] * OSMOLALITY (10/06/2004 6:40 EST) Osmolality Cintia 301 MOS/KG SHERI [facility] 10/06/2004 6:40 EST 10/06/2004 7:01 EST Hilton Álvarez MD CHEMISTRY & BLOOD GAS ORDERABLES Performing Organization Address [facility] Co de Phone Number [facility] [address] [place] [address] * ELECTROLYTES (10/06/2004 6:40 EST) Sodium 142 136 - 145 mEq/L [facility] Potassium 3.9 3.6 - 5.2 mEq/L [facility] Chloride 108 96 - 110 mEq/L [facility] CO2 25 24 - 32 mEq/L [facility] 10/06/2004 6:40 EST 10/06/2004 7:01 EST Hilton Álvarez MD CHEMISTRY & BLOOD GAS ORDERABLES Performing Organization Address [facility] de Phone Number [facility] [address] [place] [address] * OSMOLALITY (10/06/2004 2:44 EST) Osmolality Cintia 295 MOS/KG MELONIENoe [facility] 10/06/2004 2:44 EST 10/06/2004 2:44 EST Hilton Álvarez MD CHEMISTRY & BLOOD GAS ORDERABLES Performing Organization Address [facility] de Phone Number [facility] [address] [place] [address] * ELECTROLYTES (10/06/2004 2:44 EST) Sodium 143 136 - 145 mEq/L [facility] Potassium 4.0 3.6 - 5.2 mEq/L [facility] Chloride 107 96 - 110 mEq/L [facility] CO2 28 24 - 32 mEq/L [facility] 10/06/2004 2:44 EST 10/06/2004 2:44 EST Hilton Álvarez MD CHEMISTRY & BLOOD GAS ORDERABLES Performing Organization Address [facility] de Phone Number [facility] [address] [place] [address] * OSMOLALITY, URINE (10/06/2004 2:43 EST) Osmolality, Ur 628 MOS/KG MELONIETEA HER [facility] 10/06/2004 2:43 EST 10/06/2004 2:43 EST Hilton Álvarez MD URINALYSIS ORDERAB LES Performing Organization Address City/[facility] Co de Phone Number [facility] [address] [place] [address] * SODIUM, URINE RANDOM (10/06/2004 2:43 EST) Sodium, Ur 115.0 mEq/L [facility] 10/06/2004 2:43 EST 10/06/2004 2:43 EST Hilton Álvarez MD URINALYSIS ORDERAB LES Performing Organization Address [facility] Co de Phone Number [facility] [address] [place] [address] * OSMOLALITY, URINE (10/05/2004 22:11 EST) Osmolality, Ur 229 MOS/KG [facility] 10/05/2004 22:1 1 EST 10/05/2004 22:11 EST Hilton Álvarez MD URINALYSIS ORDERAB LES Performing Organization Address [facility] Co de Phone Number [facility] [address] [place] [address] * SODIUM, URINE RANDOM (10/05/2004 22:11 EST) Sodium, Ur 28.0 mEq/L [facility] 10/05/2004 22:1 1 EST 10/05/2004 22:11 EST Hilton Álvarez MD URINALYSIS ORDERAB LES Performing Organization Address [facility] Co de Phone Number [facility] [address] [place] [address] * OSMOLALITY (10/05/2004 22:10 EST) Osmolality Cintia 297 MOS/KG [facility] 10/05/2004 22:1 0 EST 10/05/2004 22:10 EST Hilton Álvarez MD CHEMISTRY & BLOOD GAS ORDERABLES Performing Organization Address City/[facility] Co de Phone Number [facility] [address] [place] [address] * ELECTROLYTES (10/05/2004 22:10 EST) Sodium 144 136 - 145 mEq/L [facility] Potassium 3.9 3.6 - 5.2 mEq/L [facility] Chloride 107 96 - 110 mEq/L [facility] CO2 26 24 - 32 mEq/L [facility] 10/05/2004 22:1 0 EST 10/05/2004 22:10 EST Hilton Álvarez MD CHEMISTRY & BLOOD GAS ORDERABLES Performing Organization Address City/State/[facility] Co de Phone Number [facility] [address] [place] [address] * CT HEAD WO CONTRAST (10/05/2004 20:26 EST) Anatomical Region Laterality Modality Other 10/05/2004 20:2 6 EST Impressions 03/03/2009 14:58 EDT IMPRESSION: 1. 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 2. No hydrocephalus or intraparenchymal hemorrhage identified. /lds Narrative 03/03/2009 14:58 EDT S/P PITUITARY TUMOR RESECTION TODAY R/O EVALUATE POST-OP CT HEAD WITHOUT CONTRAST: 10/05/041999. COMPARISON: MR 09/17/04. TECHNIQUE: Transverse non-contrast CT scans of the brain were performed from the foramen magnum to the vertex. FINDINGS: Unenhanced CT images of the brain demonstrate postoperative changes in the sinuses with a bony defect in the floor of the sella and blood in the right maxillary sinus. There has been interval partial resection of the suprasellar mass with a small amount of residual soft tissue and calcification in the suprasellar region. The residual mass measures approximately 18 mm in greatest transverse dimension, 14 mm in greatest AP dimension, and approximately 2-1/2 cm in greatest craniocaudad dimension, although the cc dimension is difficult to evaluate on reconstructed images. 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 The ventricles are normal in size for the patient's age. There is a stable small arachnoid cyst identified in the posterior fossa. No intracranial hemorrhage is seen. 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 COMPARISON: MR 09/17/04. TECHNIQUE: Transverse non-contrast CT scans of the brain were performed from the foramen magnum to the vertex. FINDINGS: Unenhanced CT images of the brain demonstrate postoperative changes in the sinuses with a bony defect in the floor of the sella and blood in the right maxillary sinus. There has been interval partial resection of the suprasellar mass with a small amount of residual soft tissue and calcification in the suprasellar region. The residual mass measures approximately 18 mm in greatest transverse dimension, 14 mm in greatest AP dimension, and approximately 2-1/2 cm in greatest craniocaudad dimension, although the cc dimension is difficult to evaluate on reconstructed images. 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 The ventricles are normal in size for the patient's age. There is a stable small arachnoid cyst identified in the posterior fossa. No intracranial hemorrhage is seen. IMPRESSION IMPRESSION: 1. 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 2. No hydrocephalus or intraparenchymal hemorrhage identified. /shravan Trice Scott MD IM CT ORDERABLES * OSMOLALITY, URINE (10/05/2004 18:24 EST) Osmolality, Ur 754 MOS/KG FLETC [facility] 10/05/2004 18:2 4 EST 10/05/2004 18:29 EST Hilton Álvarez MD URINALYSIS ORDERAB LES Performing Organization Address [facility] Co de Phone Number [facility] [address] [place] [address] * SODIUM, URINE RANDOM (10/05/2004 18:24 EST) Sodium, Ur 216.0 mEq/L [facility] 10/05/2004 18:2 4 EST 10/05/2004 18:29 EST Hilton Álvarez MD URINALYSIS ORDERAB LES Performing Organization Address [facility] de Phone Number [facility] [address] [place] [address] * OSMOLALITY (10/05/2004 18:06 EST) Osmolality Cintia 294 MOS/KG SHERI ALMEIDA [facility] 10/05/2004 18:0 6 EST 10/05/2004 18:06 EST Hilton Álvarez MD CHEMISTRY & BLOOD GAS ORDERABLES Performing Organization Address [facility] de Phone Number [facility] [address] [place] [address] * ELECTROLYTES (10/05/2004 18:06 EST) Sodium 141 136 - 145 mEq/L [facility] Potassium 4.4 3.6 - 5.2 mEq/L [facility] Chloride 106 96 - 110 mEq/L [facility] CO2 26 24 - 32 mEq/L [facility] 10/05/2004 18:0 6 EST 10/05/2004 18:06 EST Hilton Álvarez MD CHEMISTRY & BLOOD GAS ORDERABLES Performing Organization Address [facility] de Phone Number [facility] [address] [place] [address] * OSMOLALITY, URINE (10/05/2004 15:36 EST) Osmolality, Ur 406 MOS/KG [facility] 10/05/2004 15:3 6 EST 10/05/2004 15:36 EST Hilton Álvarez MD URINALYSIS ORDERAB LES Performing Organization Address [facility] Co de Phone Number [facility] [address] [place] [address] * SODIUM, URINE RANDOM (10/05/2004 15:36 EST) Sodium, Ur 109.0 mEq/L [facility] 10/05/2004 15:3 6 EST 10/05/2004 15:36 EST Hilton Álvarez MD URINALYSIS ORDERAB LES Performing Organization Address [facility] de Phone Number [facility] [address] [place] [address] * OSMOLALITY (10/05/2004 14:19 EST) Osmolality Cintia 296 MOS/KG [facility] 10/05/2004 14:1 9 EST 10/05/2004 14:19 EST Hilton Álvarez MD CHEMISTRY & BLOOD GAS ORDERABLES Performing Organization Address [facility] de Phone Number [facility] [address] [place] [address] * ELECTROLYTES (10/05/2004 14:19 EST) Sodium 141 136 - 145 mEq/L [facility] Potassium 4.3 3.6 - 5.2 mEq/L [facility] Chloride 108 96 - 110 mEq/L [facility] CO2 26 24 - 32 mEq/L [facility] 10/05/2004 14:1 9 EST 10/05/2004 14:19 EST Hilton Álvarez MD CHEMISTRY & BLOOD GAS ORDERABLES Performing Organization Address [facility] de Phone Number [facility] [address] [place] [address] * CREATININE (10/05/2004 14:19 EST) Creatinine 0.7 0.6 - 1.2 mg/dl [facility] 10/05/2004 14:1 9 EST 10/05/2004 14:19 EST Hilton Álvarez MD HISTORICAL LAB FOR SQ LOAD Performing Organization Address [facility] de Phone Number [facility] [address] [place] [address] * (ABNORMAL) HEMAGRAM (10/05/2004 14:19 EST) WBC 5.73 4.5 - 13.0 K/cmm [facility] RBC 3.87(L) 4.50 - 5.30 M/cmm [facility] Hemoglobin 10.6(L) 13.0 - 16.0 gm/dl [facility] HCT 29.6(L) 37.0 - 49.0 % [facility] MCV 76(L) 78 - 98 fl [facility] MCH 27.4 pg [facility] MCHC 35.9 gm/dl [facility] PLT 268 156 - 312 K/cmm [facility] RDW-CV 14.9 % [facility] 10/05/2004 14:1 9 EST 10/05/2004 14:19 EST Hilton Álvarez MD HEMATOLOGY & PF4 O RDERABLES Performing Organization Address [facility] de Phone Number [facility] [address] [place] [address] * BUN (10/05/2004 14:19 EST) BUN 16 8 - 21 mg/dl [facility] 10/05/2004 14:1 9 EST 10/05/2004 14:19 EST Hilton Álvarez MD CHEMISTRY & BLOOD GAS ORDERABLES Performing Organization Address [facility] Co de Phone Number [facility] [address] [place] [address] * (ABNORMAL) GLUCOSE, GLUCOMETER (10/05/2004 14:16 EST) Glucose, Fingerstick 123(H) 70 - 110 mg/dl [facility] Event Coordinator ID [id number] Test Performed by Nursing Services [facility] 10/05/2004 14:1 6 EST 10/06/2004 0:42 EST Hilton Álvarez MD CHEMISTRY & BLOOD GAS ORDERABLES Performing Organization Address City/State/[facility] Co de Phone Number [facility] [address] [place] [address] documented in this encounter Visit Diagnoses Not on filedocumented in this encounter
--- OUTSIDE RECORDS SUMMARY | 2024-03-05 15:55 | XMS_ITS | Encounter Summary ---
Author Organization [facility] Address [facility] [place] [address] Care Team Providers Care Aged Or Disabled Carer Name Role Phone Lc Venegas Primary Care Provider [phone] Encounter Details Date Type Department Care Team (Late st Contact Info) Description 09/11/2018 Telephone [place] [id number] Mariola Thomson MD [facility] [place] [address] Social History Tobacco Use Types Packs/Day Years [...] encounter Miscellaneous Notes * Telephone Encounter - Mariola Thomson CW - 09/11/2018 4:23 PM EST Endocrinology Telephone Note: Msg from Jessika Woodall NP at [facility], left msg that pt is doing well, possible aspiration pneumonia. Would like call back on how to proceed with steroid dosing and taper. [phone] and have hospitalist paged. Spoke with hospitalist who reported that pt was d/c Tripled AM dose, doubled afternoon dose for first day. 60mg -->40mg 2 days in the AM, 15mg in the afternoon 2 days 20mg 10mg was not febrile at d/c, back to baseline off acetaminophen Suspect aspiration pna Mariola Thomson MD PGY-4 [facility] [place] Fellow Pager #[phone] documented in this encounter Plan of Treatment Not on file documented as of this encounter Visit Diagnoses Not on filedocumented in this encounter Care Teams Aged Or Disabled Carer Relationship Specialty Start Date End Date Lc Venegas PA [address] [place] [address] PCP - General General Internal Medicine 09/03/17 documented as of this encounter
--- OUTSIDE RECORDS SUMMARY | 2024-03-05 15:55 | XMS_ITS | Encounter Summary ---
Author Organization [facility] Address [facility] [place] [address] Care Team Providers Care Manager Desktop Name Role Phone Lc Venegas Primary Care Provider [phone] Reason for Visit * Auth/Cert Specialty Diagnoses / Procedures Referred By Contac t Referred To Contact Diagnoses Acetabular fracture Left acetabulum fracture Procedures @OPEN TREATMENT, ACETABULAR FX (WRVU 25.41) Referral ID Status Reason Start Date Expiration Date Visits Re quested Visits Authorized [id number] 1 1 Encounter Details Date Type Department Care Team (Late st Contact Info) Description 09/04/2017 9:22 AM EST Anesthesia [place] [address] Delfino Chavez MD [facility] [place] [address] Irving Loja MD [facility] [place] [address] Anesthesia Record Procedure Summary Procedure Name Responsible Anesthesiologist Anesthesia Start Time Anesthesia Stop Time @OPEN TREATMENT, ACETABULAR FX (WRVU 25.41) (Left: Pelvis) Delfino Chavez MD 09/04/17 0922 09/04/17 1309 Events Date Time Event Comment 09/04/2017 0922 0922 Start 0924 AN Verify 0925 An Start Data 0929 An Induction 0931 An Intubation 0940 IV Start 0950 Anesthesia Ready 1004 Procedure Start 1055 Quick Note Sudden large bl ood loss >500 mL. BP symptomatic requiring treatment. Dr. Chavez called to bedside. IVF wide open. Called for 2 unit PRBC. 1111 Quick Note Patient name nuvia benton does not have blood lock code on it despite completed type and screen good until 09/06/17 in the computer. Unable to open PRBCs. Blood bank called. Blood bank instructions to send back blood and draw new type and screen which will be ready in 45-60 min. 1245 Procedure Stop 1257 Extubation/LMA Out Patient s pontaneously ventilating; adequate tidal volumes (400 - 500 mL); regular respiratory rate; neuromuscular function intact as evidence by sustained tetanus. Oropharynx suctioned. Extubated without issue to 6L/min O2 via face mask. VSS. 1259 an stop data 1308 Recovery or ICU Handoff Christina ent care was transferred to the destination unit staff after review of the patient's medical history, current anesthetic/surgical status and plan, according to the Provider Handoff Checklist. 1309 Stop Spontaneous jimena tilation without issue. VSS. Full report given to VETERINARY PHYSIOLOGIST. Meds Name Total fentaNYL 100 mcg IV Lidocaine 50 mg Propofol 200 mg Rocuronium 50 mg PHENYLephrine 960 mcg Ondansetron 4 mg hydrocortisone 200 mg ceFAZolin 2 g Tranexamic Acid 1,125 mg HYDROmorphone 0.8 mg PHENYLephrine INF 15,400 mcg Vasopressin 15 Units Lactated Ringers 1,000 mL Lactated Ringers 3,000 mL Sodium Chloride 0.9% 500 mL * Agents Name O2 Air N2O Sevoflurane (et) * Blood No blood administrations on file. Lines, Drains, and Airways Type Details Placement Removal (RETIRED) Peripheral IV Line - Single Lumen 09/02/17; 1500; median vein (underside of arm), right; [id number] catheter system; 20 gauge; OSH MOBILE DEVICE DEVELOPER; 09/09/17; 1999 (pt pulled out. aware.) 09/02/17 1500 by Crista Baptiste NRP 09/09/171999 by Lori Corbin RN Urethral Catheter 09/02/17; 1500; indwelling single lumen catheter; 14; present on admission to this facility; drainage bag to dependent drainage; 09/10/17; 0000 09/02/17 1500 by Crista Baptiste NRP 09/10/17 by Lori Corbin RN ETT Mask Ventilation: Adjunct (2); ETT Type: Cuffed, Oral; ETT Size: 7.5 mm; Mac Blade: 3; Notes: Asleep, Pre-O2, Cricoid Pressure, Stylette; Attempts: 1; Laryngoscopy Grade: 1; ETT Placement Verified By: Auscultation, Capnometry, Visual; Secured at Teeth: 22 cm; Inserted by: Cele Fabian CRNA; Removal Date: 09/04/17; Removal Time: 1257 09/04/17 0931 by Cele Carrington ACCOUNT EXECUTIVE 09/04/17 1257 by Delfino Chavez MD (RETIRED) Peripheral IV Line - Single Lumen 09/04/17; 0940; metacarpal vein (top of hand), left; spdb-mev-fczjxm catheter system; 16 gauge; MD Scott; 0; Removed by patient; 09/04/17; 2200 09/04/17 0940 by Cele Carrington CRNA 09/04/17 2200 by [place] Malin RN Arterial Line 09/04/17; 0950; radi al artery, right; 20 gauge; Cele Fabian CRNA; Sterile Prep, Sterile Gloves; 09/04/17; 1428 09/04/17 0950 by Cele Carrington ACCOUNT EXECUTIVE 09/04/17 1428 by Germaine Jaimes RN Incision 09/04/17; 1005; hip; 12/19/17; 0927 09/04/17 1005 by Mohit Hawkins RN 12/19/17 0927 by Adia Clarke RN Incision 09/04/17; 1128; abdo men; 11/17/17 09/04/17 1128 by Mohit Hawkins RN 11/17/17 0000 by Genevieve Lebron RN Incision 09/04/17; 1202; thig h; Duplicate documentation; 11/18/17; 1105 09/04/17 1202 by Mohit Hawkins RN 11/18/17 1105 by Mavis Byers RN Drain/Device Site 09/04/17; 1222; Left ; anterior; abdomen; collapsible closed device (10Fr); Removed by MD; 09/05/17; 1200 09/04/17 1222 by Mohit Hawkins RN 09/05/17 1200 by Florida Malin RN Drain/Device Site 09/04/17; 1222; Righ t; anterior; abdomen; collapsible closed device (10Fr); Removed by patient; 09/05/17; 0343 09/04/17 1222 by Mohit Hawkins RN 09/05/17 0343 by Florida Malin RN documented in this encounter Social History Tobacco Use Types Packs/Day Years Used Date Smoking Tobacco: Never Smokeless Tobacco: Never Alcohol Use Standard Drinks/Week Comments No 0 (1 standard drink = 0.6 oz pur e alcohol) Sex and Gender Information Value Date Recorded Sex Assigned at Not on file Gender Identity Not on file Sexual Orientation Not on file documented as of this encounter OR Notes * Anesthesia Postprocedure Evaluation - Delfino Chavez MD - 09/04/2017 2:08 PM EST [facility] Department of Anesthesiology Post-procedure Note Patient: Miguel Angel Burgos Procedure Summary Date Anesthesia Start Anesthesia Stop Room / Location 09/04/17 0922 1309 MH OR 07 / [facility] MAIN OR Procedure Diagnosis Surgeon Responsible Provider @OPEN TREATMENT, ACETABULAR FX (WRVU 25.41) (Left Pelvis); MODIFIER SMALL FRAGMENT SYNTHES (N/A ); MODIFIER PELVIC RECONSTRUCTION PLATE SYNTHES (N/A ); MODIFIER LARGE FRAGMENT SYSTEM SYNTHES (N/A ) (Left acetabulum fracture) Amy Lance MD Spence, Brian C, MD All Anesthesia Providers: Anesthesiologist: Delfino Chavez MD ACCOUNT EXECUTIVE: Cele Fabian CRNA Most Recent Vitals: 09/04/17 1345 BP: 122/69 Pulse: (!) 106 Resp: 18 Temp: SpO2: 100% Pain Patient Location: PACU/SD Level of Consciousness: Awake and Alert Pain Management: Satisfactory Analgesia PONV: None Cardiovascular Status: At Baseline Respiratory Status: At Baseline Postoperative Fluid Status: Intravascular EUvolemia Possible Anesthetic Complications: NONE apparent at time of evaluation Final Primary Anesthesia Type: General (The anesthetic type performed was the same as planned.) Comments: Mental status at baseline * Anesthesia Preprocedure Evaluation - Delfino Chavez MD - 09/04/2017 7:42 AM EST Pre-Anesthesia Evaluation for: Miguel Angel Burgos a 27 y.o. male. Procedure(s): @OPEN TREATMENT, ACETABULAR FX (WRVU 25.41) MODIFIER SMALL FRAGMENT SYNTHES MODIFIER PELVIC RECONSTRUCTION PLATE SYNTHES MODIFIER LARGE FRAGMENT SYSTEM SYNTHES Patient Active Problem List Diagnosis ??? Acetabular fracture ??? Diabetes insipidus ??? Adrenal insufficiency ??? Panhypopituitarism ??? Seizure disorder ??? Insomnia ??? Blind ??? 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 Urinary incontinence ??? Hypothyroidism No past medical history on file. No past surgical history on file. Social History Substance Use Topics ??? Smoking status: Never Smoker ??? Smokeless tobacco: Never Used ??? Alcohol use No History Drug Use No Allergies Allergen Reactions ??? Lopid [Gemfibrozil] Medications: MAR and/or home medications have been reviewed. Physical Exam: Most Recent Vitals: 09/04/17 0307 BP: 131/81 Pulse: Resp: 16 Temp: 37.2 ??C (99 ??F) SpO2: 100% There is no height or weight on file to calculate BMI. Airway Assessment: Mallampati: (Unable to Assess) Cardiovascular Assessment: cardiovascular exam normal Pulmonary Assessment: pulmonary exam normal Dental Assessment: Misc Assessment: IV access: Peripheral line Other exam findings: Proven airway according to his sister Anesthesia Plan: ASA 3 general, with a(n) intravenous induction Miguel Angel Burgos is a 27 y.o.non smoker presenting for Procedure(s): @OPEN TREATMENT, ACETABULAR FX (WRVU 25.41) MODIFIER SMALL FRAGMENT SYNTHES MODIFIER PELVIC RECONSTRUCTION PLATE SYNTHES MODIFIER LARGE FRAGMENT SYSTEM SYNTHES with Dr. 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 Currently receiving IV hydrocortisone 50mg q8h Meds: desmopressin, 0.05 mg, Oral, TID levothyroxine, 150 mcg, Oral, QAM melatonin, 3 mg, Oral, Nightly pantoprazole, 40 mg, Oral, QAM AC QUEtiapine, 250 mg, Oral, Nightly traZODone, 50 mg, Oral, Nightly sodium chloride 0.9 %, 5 mL, Intravenous, BID hydrocortisone, 50 mg, Intravenous, Q8H zonisamide, 200 mg, Oral, Nightly acetaminophen, 1,000 mg, Oral, Q6H CIRO enoxaparin, 40 mg, Subcutaneous, Q24H Allergies: -- Lopid (Gemfibrozil) Anesth hx: None on record Labs: 09/04/17 09/03/17 0358 0054 WBC 10.5* 9.1 HGB 12.4* 14.8 HCT 37.2* 43.4 PLATELET 142* 156 09/04/17 09/03/17 09/03/17 0358 0622 0154 NA 128* 136 139 K 4.1 4.2 3.7 CL 95* 99 102 CO2 22 26 25 BUN 12 10 10 CREATININE 0.73* 0.99 1.01 09/04/17 0358 AST 23 ALT 31 ALKPHOS 75 BILITOT 0.5 BILIDIR 0.1 09/03/17 0054 PT 13.6 INR 1.1 PTT 26 Patient's sister is his legal guardian. Plan for GA with ETT; standard ASA monitoring. Region - Other Informed Consent: Anesthetic plan and risks discussed with legal guardian. Plan discussed with ACCOUNT EXECUTIVE. PAT Staff Note documented in this encounter Plan of Treatment Not on file documented as of this encounter Visit Diagnoses Not on filedocumented in this encounter Administered Medications Inactive Administered Medications - up to 3 most recent administrations Medication Order MAR Action Action Date Dose Rate Site ceFAZolin (ANCEF) 1g in dextrose 5% 50mL PRN, Starting on Jo Ann 09/04/17 at 0948, Until Jo Ann 3/1/18 at 1311, Administer over 30 Minutes, Anesthesia Intra-op Given 09/04/2017 9:45 AM EST 2 g fentaNYL 50 mcg/mL multi-dose injection PRN, Starting on Jo Ann 09/04/17 at 0948, Until Jo Ann 09/04/17 at 1311, Pain, Anesthesia Intra-op, Routine Given 09/04/2017 10:05 AM EST 50 mcg Given 09/04/2017 9:48 AM EST 50 mcg hydrocortisone sodium succinate (PF) (Solu-CORTEF) injection PRN, Starting on Jo Ann 09/04/17 at 0934, Until Jo Ann 09/04/17 at 1311, Anesthesia Intra-op, Routine Given 09/04/2017 9:34 AM EST 200 mg HYDROmorphone (DILAUDID) injection PRN, Starting on Jo Ann 09/04/17 at 1040, Until Jo Ann 09/04/17 at 1311, Pain, Anesthesia Intra-op, Routine Given 09/04/2017 12:27 PM EST 0.3 mg Given 09/04/2017 10:40 AM EST 0.5 mg lactated Ringers infusion CONTINUOUS PRN, Starting on Jo Ann 09/04/17 at 0922, Until Jo Ann 09/04/17 at 1311, Anesthesia Intra-op New Bag 09/04/2017 9:22 AM ES T lactated Ringers infusion CONTINUOUS PRN, Starting on Jo Ann 09/04/17 at 0940, Until Jo Ann 09/04/17 at 1311, Anesthesia Intra-op New Bag 09/04/2017 12:[address] New Bag 09/04/2017 11:42 AM EST New Bag 09/04/2017 11:06 AM EST lidocaine (PF) (XYLOCAINE) 100 mg/5 mL (2 %) injection PRN, Starting on Jo Ann 09/04/17 at 0929, Until Jo Ann 09/04/17 at 1311, Anesthesia Intra-op, Routine Given 09/04/2017 9:29 AM EST 50 mg ondansetron (ZOFRAN) injection PRN, Starting on Jo Ann 09/04/17 at 1240, Until Jo Ann 09/04/17 at 1311, Nausea, Anesthesia Intra-op, Routine Given 09/04/2017 12:40 PM EST 4 mg PHENYLephrine (JEANNETTE-SYNEPHRINE) 20 mg in sodium chloride 250 mL (standard ADULT & Pedi greater than 20kg) infusion CONTINUOUS PRN, Starting on Jo Ann 09/04/17 at 1046, Until Jo Ann 09/04/17 at 1311, Anesthesia Intra-op, Routine Rate/Dose Change 09/04/2017 11:09 AM EST 160 mcg/min 120 mL/hr Rate/Dose Change 09/04/2017 10:57 AM EST 140 mcg/min 105 m L/hr Rate/Dose Change 09/04/2017 10:54 AM EST 100 mcg/min 75 mL /hr PHENYLephrine in NS (PF) (JEANNETTE-SYNEPHRINE) 0.8 mg/10 mL (80 mcg/mL) multi-dose injection Syrg PRN, Starting on Jo Ann 09/04/17 at 1025, Until Jo Ann 09/04/17 at 1311, Anesthesia Intra-op, Routine Given 09/04/2017 10:57 AM EST 160 mcg Given 09/04/2017 10:53 AM EST 160 mcg Given 09/04/2017 10:45 AM EST 160 mcg propofol (DIPRIVAN) 10 mg/mL bolus injection (Anesthesia) PRN, Starting on Jo Ann 09/04/17 at 0929, Until Jo Ann 3 at 1311, Anesthesia Intra-op Given 09/04/2017 9:29 AM EST 200 mg rocuronium (ZEMURON) multi-dose injection PRN, Starting on Jo Ann 09/04/17 at 0930, Until Jo Ann 09/04/17 at 1311, Anesthesia Intra-op, Routine Given 09/04/2017 9:30 AM EST 50 mg sodium chloride 0.9% infusion CONTINUOUS PRN, Starting on Jo Ann 09/04/17 at 1158, Until Jo Ann 09/04/17 at 1311, Anesthesia Intra-op New Bag 09/04/2017 11:58 AM EST tranexamic acid (CYKLOKAPRON) 100 mg/mL bolus injection (Anesthesia) PRN, Starting on Jo Ann 09/04/17 at 0948, Until Jo Ann 18 at 1311, Anesthesia Intra-op, Routine Given 09/04/2017 9:48 AM EST 1,125 mg vasopressin (VASOSTRICT) injection PRN, Starting on Jo Ann 09/04/17 at 1110, Until Jo Ann 09/04/17 at 1311, Bleeding, Anesthesia Intra-op, Routine Given 09/04/2017 11:17 AM EST 2 Units Given 09/04/2017 11:15 AM EST 2 Units Given 09/04/2017 11:13 AM EST 2 Units documented in this encounter Care Teams Manager Desktop Relationship Specialty Start Date End Date Lc Venegas PA [address] [place] [address] PCP - General General Internal Medicine 09/03/17 documented as of this encounter
--- OUTSIDE RECORDS SUMMARY | 2024-03-05 15:55 | XMS_ITS | Encounter Summary ---
Author Organization [facility] Address [address] [place] [address] Care Team Providers Care Generator Man Name Role Phone Yan Demarco MD Primary Care Provider [phone] Corin Skinner MD Primary Care Provider Akil Serrano MD Primary Care Provider [phone] Encounter Details Date Type Department Care Team (Late st Contact Info) Description 10/08/2004 Before PRISM Converted Visit (Maple) [facility] - Maple conversion [address] [place] [address] Jose Armando Alejo MD [address] [place] [address] Social History Tobacco Use Types Packs/Day Years Used Date Smoking Tobacco: Never Assessed Sex and Gender Information Value Date Recorded Sex Assigned at Not on file Gender Identity Not on file Sexual Orientation Not on file documented as of this encounter Procedure Notes * Jose Armando Alejo MD - 02/13/2011 1244 EDT DATE: 10/05/2004 SURGEON: JOSE ARMANDO ALEJO MD, ADE MALLOY MD DESK MONITOR: CONSTANTINO BERMUDEZ MD PREOPERATIVE DIAGNOSIS: Craniopharyngioma cyst. POSTOPERATIVE DIAGNOSIS: Craniopharyngioma cyst. PROCEDURE: Endoscopic transnasal/total ethmoidectomy and sphenoidotomy for excision of craniopharyngioma cyst. ANESTHESIA: General with endotracheal intubation. 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 He is being admitted for elective surgery for removal of a compressive cyst which has resulted in blindness. FINDINGS: Intraoperatively, the paranasal sinuses were actually noted to be diffusely edematous on the right side. There was no inspissated material. The sphenoid cavity was well aerated and of adultsize, providing easy access for removal of the posterior sphenoid wall inrelation to the sella in permitting access to the craniopharyngioma. NARRATIVE: The patient was escorted to the operating room. Appropriate intraoperative monitoring was established by anesthesia. The patient was then positioned for the endoscopic approach initially. On induction, he was administered 10 mg IV Decadron and 1 mg IV Kefzol. The nasal cavity was injected bilaterally including nasal septum and lateral nasal wall with Xylocaine adrenaline solution followed by insertion of neuro patties soaked in dilute 10% cocaine. Surgery was facilitated on the left side. The middle turbinate consisted of a large, voluminous adele bullosa. This was excised at its a nterolateral attachment to permit access to the posterior nasal cavity. There was also noted to be prominent superior turbinate posterosuperior to this, impairing access to the sphenoethmoid recess. This was partially resected with a Xomed StraightShot. The sphenoethmoid recess was then identified.I palpated along the posterior wall fromthe inferior medial position superiorly, identifying the natural ostia into the sphenoid sinus. This was penetrated to access the sphenoid sinus. The anterior wall of the sphenoid sinus was then removed from an inferior medial position to a superior lateral position. A total ethmoidectomy was required to permit access to the lateral component of the sphenoid to the lateral aspect of the anterior wall of the sphenoid sinus. This included an uncinectomy with removal of ethmoid bulla, penetration of the vertical plate, and then a total ethmoidectomy to theanterior wall of the sphenoid sinus, and then superiorly to the roof in relationship to the anterior floor of the cranial fossa. Lastly, under endoscopic guidance, an incision was placed approximately 1.5-2 cm anterior to the wall of the sphenoid sinus along the nasal septum vertically. This was penetrated from full thickness through the bone and the contralateral mucosa. Using cutting Blakeleys and Cris forceps, the rostrum of the septum was removedto expose the midline septum of the sphenoid sinus. The sphenoid sinus septum was then incised superiorly followed by inferior with cutting nasal scissors, followed by removal with Cris forceps. This provided excellent exposure to the left sphenoid sinus cavity, as well as including the roof in relationship to the sella turcica. Bleeding was minimal. This concluded transnasal, transethmoidal, and transsphenoidal approach to the sphenoid sinus in preparation for removal of craniopharyngioma. Dr. Mallyo then proceeded to take down the posterior wall of the sphenoid sinus. ESTIMATED BLOOD LOSS: For the transnasal, transethmoidal, transsphenoidal approach, less than 100 cc. FLUIDS: Ringer lactate. SPECIMENS: COMPLICATIONS: d - 10/06/2004 12:34:17 - JOSE ARMANDO ALEJO MD t - 10/08/2004 14:14:21 - cs Voice ID - [id number] Document ID - [id number] cc: ADE DIAZ MD, REFERRING PHYSICIAN JOSE ARMANDO ALEJO MD, ATTENDING PHYSICIAN This document has been electronically signed by JOSE ARMANDO ALEJO MD on 10/11/2004 15:42:12. documented in this encounter Plan of Treatment Upcoming Encounters Date Type Department Care Team (Late st Contact Info) Description 09/09/2024 10:20 EST Office Visit [facility] Endocrinology - [address] [phone] Day Littlejohn MD PhD [address] [place] [address] [address] [place] [id number] documented as of this encounter Visit Diagnoses Not on filedocumented in this encounter Care Teams Generator Man Relationship Specialty Start Date End Date Yan Demarco MD [address] [place] [address] PCP - General 08/22/09 02/20/10 Corin Skinner MD [address] [address] PCP - General 10/24/08 08/21/09 Akil Serrano MD [address] [address] PCP - General 02/21/10 04/16/11 documented as of this encounter
--- OUTSIDE RECORDS SUMMARY | 2024-03-05 15:55 | XMS_ITS | Encounter Summary ---
Author Organization [facility] Address [facility] [place] [address] Care Team Providers Care Prepper Name Role Phone Corin Skinner MD Primary Care Provider [phone] Encounter Details Date Type Department Care Team (Latest Contact Info) Description 09/02/2017 12:15 AM EST - 09/02/2017 12:19 AM EST Hospital Encounter [place] [address] Neo Gar MD [facility] [place] [address] Discharge Disposition: Home Social History Tobacco Use Types Packs/Day Years Used Date Smoking Tobacco: Never Assessed Sex and Gender Information Value Date Recorded Sex Assigned at Not on file Gender Identity Not on file Sexual Orientation Not on file documented as of this encounter Medications at Time of Discharge Medication Sig Dispensed Refills Start Date End Date acetaminophen (TYLENOL) 325 mg Tablet Take 2 tablets by mouth every 6 hours as needed for Pain. 30 tablet 1 03/11/2018 aspirin 81 mg Tablet, Chewable Take 81 mg by mouth daily. 30 tablet 3 03/12/2018 atorvastatin (LIPITOR) 40 mg Tablet Take 1 tablet by mouth every evening. 90 tablet 3 03/11/2018 calcium carbonate (TUMS) 200 mg calcium (500 mg) Tablet, Chewable Take 1 tablet by mouth nightly. 30 tablet 3 03/11/2018 cholecalciferol, Vitamin D3, 1,000 unit Tablet Take 1 tablet by mouth daily. 90 tablet 3 03/12/2018 desmopressin (DDAVP) 0.1 mg Tablet Take 1 tablet by mouth every morning. 30 tablet 3 03/12/2018 desmopressin (DDAVP) 0.1 mg Tablet Take 1.5 tablets by mouth nightly. 30 tablet 3 03/11/2018 hydrocortisone (CORTEF) 20 mg Tablet Take 1 tablet by mouth every morning. 30 tablet 3 03/12/2018 hydrocortisone (CORTEF) 10 mg Tablet Take 1 tablet by mouth Daily at Noon. 30 tablet 3 03/12/2018 levothyroxine (SYNTHROID) 75 mcg Tablet Take 3 tablets by mouth every morning. 90 tablet 3 03/12/2018 melatonin 3 mg Tablet Take 3 tablets by mouth nightly. 90 tablet 3 03/11/2018 methyl salicylate-menthol (BENGAY) 15-10 % Cream Apply 1 Application topically 2 times daily. 30 g 03/11/2018 metoprolol succinate (TOPROL-XL) 25 mg Tablet Sustained Release 24 hr Take 3 tablets by mouth daily. 30 tablet 12 03/12/2018 omeprazole (PRILOSEC) 40 mg Capsule, Delayed Release(E.C.) Take 1 capsule by mouth daily. 30 capsule 3 03/11/2018 polyethylene glycol (MIRALAX) 17 gram Powder in Packet Take 17 g by mouth daily as needed (If not bowel movement in last 24 hours.). 14 each 03/11/2018 QUEtiapine (SEROQUEL) 50 mg Tablet Take 5 tablets by mouth nightly. 30 tablet 3 03/11/2018 senna-docusate (PERICOLACE) 8.6-50 mg Tablet Take 2 tablets by mouth 2 times daily. 60 tablet 11 03/11/2018 traZODone (DESYREL) 50 mg Tablet Take 1 tablet by mouth nightly. 90 tablet 3 03/11/2018 zonisamide (ZONEGRAN) 100 mg Capsule Take 2 capsules by mouth nightly. 30 capsule 3 03/11/2018 QUEtiapine (SEROQUEL) 50 mg Tablet Take 1 tablet by mouth 2 times daily as needed. 60 tablet 3 03/11/2018 Diaper,Brief, Adult,Disposable Misc Daily 27/01 as needed for incontinence 90 each 3 03/11/2018 desmopressin (DDAVP) 0.1 mg Tablet Take 0.05 mg by mouth 3 times daily. Around 0700 - 1200 - 1900 03/12/2018 cholecalciferol, Vitamin D3, 400 unit Capsule Take 400 Units by mouth 2 times daily. 03/12/2018 melatonin 3 mg Tablet Take 3 mg by mouth nightly. 03/12/2018 traZODone (DESYREL) 50 mg Tablet Take 50 mg by mouth nightly. 03/12/2018 QUEtiapine (SEROQUEL) 200 mg Tablet Take 250 mg by mouth nightly. 03/12/2018 hydrocortisone (CORTEF) 10 mg Tablet Take 10-20 mg by mouth 3 times daily. Takes 20mg around 0700, 10 mg at 1200, and 10 mg at 1900. 03/12/2018 testosterone (ANDROGEL) 1 % (25 mg/2.5 g) Gel in Packet Place onto the skin daily. 1% 3 pumps once a day 03/12/2018 levothyroxine (SYNTHROID) 150 mcg Tablet Take 150 mcg by mouth every morning. 03/12/2018 zonisamide (ZONEGRAN) 100 mg Capsule Take 100 mg by mouth nightly. 03/12/2018 omeprazole (PRILOSEC) 40 mg Capsule, Delayed Release(E.C.) Take 40 mg by mouth daily. 03/11/2018 bisacodyl (DULCOLAX) [address] 1 suppository rectally daily as needed. 60 suppository 3 03/11/2018 11/01/2021 simethicone (MYLICON) 80 mg Tablet, Chewable Take 0.5 tablets by mouth every 6 hours as needed. 30 tablet 03/11/2018 11/01/2021 testosterone (ANDROGEL) 1 % (25 mg/2.5 g) Gel in Packet Place 5 g onto the skin nightly. 60 packet 3 03/11/2018 11/01/2021 testosterone (ANDROGEL) 1 % (25 mg/2.5 g) Gel in Packet Place 25 g onto the skin daily. 03/12/2018 documented as of this encounter Plan of Treatment Not on file documented as of this encounter Procedures Procedure Name Priority Date/Time Associated Diagnosis Comments FILM LIBRARY STORAGE ONLY DX KNEE Routine 09/02/2017 12:15 AM EST documented in this encounter Results * Film Library- Storage Only DX Knee (09/02/2017 12:15 AM EST) Narrative MATEO OSORIO - 09/02/2017 6:29 PM EST This exam is for storage only and is auto-finalizing. Neo Gar MD IMG FILM LIBRARY OR DERABLES [place] documented in this encounter Visit Diagnoses Not on filedocumented in this encounter Care Teams Prepper Relationship Specialty Start Date End Date Corin Skinner MD PCP - General 05/29/10 09/02/17 documented as of this encounter
--- OUTSIDE RECORDS SUMMARY | 2024-03-05 15:55 | XMS_ITS | Encounter Summary ---
Author Organization [facility] Address [facility] [place] [address] Care Team Providers Care Commercial Housekeeper Name Role Phone Corin Skinner MD Primary Care Provider [phone] Encounter Details Date Type Department Care Team (Latest Contact Info) Description 09/02/2017 12:20 AM EST - 09/02/2017 9:22 PM EST Hospital Encounter [place] [address] Neo Gar MD [facility] Dr [place] [address] Discharge Disposition: Home Social History Tobacco Use [...] Diagnosis Comments FILM LIBRARY STORAGE ONLY DX CHEST Routine 09/02/2017 12:20 AM EST documented in this encounter Results * Film Library- Storage Only DX Chest (09/02/2017 12:20 AM EST) Narrative MATEO OSORIO - 09/02/2017 6:30 PM EST This exam is for storage only and is auto-finalizing. Neo Gar MD IMG FILM LIBRARY OR DERABLES JO [place] documented in this encounter Visit Diagnoses Not on filedocumented in this encounter Care Teams Commercial Housekeeper Relationship Specialty Start Date End Date Corin Skinner MD PCP - General 05/29/10 09/02/17 documented as of this encounter
--- OUTSIDE RECORDS SUMMARY | 2024-03-05 15:55 | XMS_ITS | Encounter Summary ---
Author Organization [facility] Address [address] [place] [address] Care Team Providers Care Staff Training And Development Manager Name Role Phone Yan Demarco MD Primary Care Provider [phone] Corin Skinner MD Primary Care Provider Akil Serrano MD Primary Care Provider [phone] Encounter Details Date Type Department Care Team (Late st Contact Info) Description 11/15/2004 Before PRISM Converted Visit (Maple) [facility] - Maple conversion [address] [place] [address] Kylie Larson MD [address] [place] [address] [address] [place] [address] Social History Tobacco Use Types Packs/Day Years Used Date Smoking Tobacco: Never Assessed Sex and Gender Information Value Date Recorded Sex Assigned at Not on file Gender Identity Not on file Sexual Orientation Not on file documented as of this encounter Consult Notes * Kylie Larson MD - 02/14/2011 1615 EDT ADMISSION DATE: 10/05/2004 DATE OF CONSULTATION: 11/15/2004 FOLLOW-UP CONSULT NOTE HISTORY OF PRESENT ILLNESS: The patient is a 14-year-old young man with resection of craniopharyngioma and CVA. He also has panhypopituitarism. I had the opportunity to speak briefly with Dr. Edwards the day before yesterday. He is hoping to have the patient stable enough for transfer to the Rehabilitation Service on Friday, November 19, 2004. His sodium levels have been more stable over the last couple of days, in the low 140s.They are still monitoring closely to make adjustments to keep the DDAVP dose as stable as possible.Nonew neurologic changes have been noted. No further imaging has been done at this point. Dr. Edwards and I also discussed the possibility of possible stimulant medications. The first thought would be for a medication such as amantadine, which is frequently used in the brain-injured population for neuro stimulant. Other considerations would be the more usual medications such as Ritalin or Adderall. Dr. Edwards will review these medications and decide if he feels one is more appropriate than the other. We also briefly discussed adrenal function in regard to alertness. He said he is already on a stress dose of steroid. EXAMINATION: On exam, the patient shows no change from the other day. He continues to grasp with the right hand and seems to follow commands in that regard. He does not open his eyes or respond to visual stimuli.He continues to wear ankle/foot orthoses or LNard splints for foot positioning. He still has range past neutral. He did not have significant tone of his left upper extremity today. 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 He continues to require close monitoring for sodium level. However, he appears to be more stable in that regard over the last couple of days. Nursing over at [facility] will review his nursing care needs to see if they can provide the appropriate level of care for him. We will continue to monitor him over the next couple of days to assess for appropriate transition to the Rehab Service on Friday. d - 11/15/2004 16:16:25 - KYLIE LARSON MD t - 11/15/2004 16:50:13 - Voice ID - [id number] Document ID - [id number] cc: ANCELMO DIAZ MD, REFERRING PHYSICIAN This document has been electronically signed by KYLIE LARSON MD on 11/16/2004 15:48:37. l3 documented in this encounter Plan of Treatment Upcoming Encounters Date Type Department Care Team (Late st Contact Info) Description 09/09/2024 10:20 EST Office Visit [facility] Endocrinology - [facility] [address] [place] [address] Day Littlejohn MD PhD [address] [facility] [address] [place] [address] documented as of this encounter Visit Diagnoses Not on filedocumented in this encounter Care Teams Staff Training And Development Manager Relationship Specialty Start Date End Date Yan Demarco MD [address] [place] [address] PCP - General 08/22/09 02/20/10 Corin Skinner MD [address] [place] [phone] PCP - General 10/24/08 08/21/09 Akil Serrano MD [address] [facility] [address] [place] [address] PCP - General 02/21/10 04/16/11 documented as of this encounter
--- OUTSIDE RECORDS SUMMARY | 2024-03-05 15:55 | XMS_ITS | Encounter Summary ---
Author Organization [facility] [address] Care Team Providers Care Computer Systems Support Specialist Name Role Phone Lc Venegas Primary Care Provider [phone] Encounter Details Date Type Department Care Team (Late st Contact Info) Description 09/11/2018 Telephone [place] [phone] Thuy Chu RN Social History Tobacco Use Types Packs/Day [...] encounter Miscellaneous Notes * Telephone Encounter - Thuy Holman RN - 09/11/2018 11:05 AM EST Msg from Jessika Woodall NP at [facility], left msg that pt is doing well, possible aspiration pneumonia. Would like call back on how to proceed with steroid dosing and taper. [phone] and have hospitalist paged. documented in this encounter Plan of Treatment Not on file documented as of this encounter Visit Diagnoses Not on filedocumented in this encounter Care Teams Computer Systems Support Specialist Relationship Specialty Start Date End Date Lc Venegas PA [address] [place] [address] PCP - General General Internal Medicine 09/03/17 documented as of this encounter
--- OUTSIDE RECORDS SUMMARY | 2024-03-05 15:55 | XMS_ITS | Encounter Summary ---
Author Organization [facility] Address [facility] [place] [address] Care Team Providers Care Code Machine Operator Name Role Phone Corin Skinner MD Primary Care Provider [phone] Encounter Details Date Type Department Care Team (Latest Contact Info) Description 09/02/2017 12:05 AM EST - 09/02/2017 12:09 AM EST Hospital Encounter [place] [address] Neo Gar MD [facility] [place] [address] Discharge Disposition: Home Social History Tobacco Use [...] Diagnosis Comments FILM LIBRARY STORAGE ONLY DX PELVIS Routine 09/02/2017 12:05 AM EST documented in this encounter Results * Film Library- Storage Only DX Pelvis (09/02/2017 12:05 AM EST) Narrative MATEO OSORIO - 09/02/2017 6:28 PM EST This exam is for storage only and is auto-finalizing. Neo Gar MD IMG FILM LIBRARY OR DERABLES [place] documented in this encounter Visit Diagnoses Not on filedocumented in this encounter Care Teams Code Machine Operator Relationship Specialty Start Date End Date Corin Skinner MD PCP - General 05/29/10 09/02/17 documented as of this encounter
--- OUTSIDE RECORDS SUMMARY | 2024-03-05 15:55 | XMS_ITS | Encounter Summary ---
[place] [address] Care Team Providers Care Clinical Research Nurse Coordinator Name Role Phone Lc Venegas Primary Care Provider [phone] Encounter Details Date Type Department Care Team (Latest Contact Info) Description 07/15/2018 12:40 PM EST Laboratory Appointment Lab [address] [place] [phone] Hypopituitarism Social History Tobacco Use Types Packs/Day Years [...] Procedure Name Priority Date/Time Associated Diagnosis Comments VITAMIN D, 25-HYDROXY Routine 07/15/2018 12:49 PM EST Hypopituitarism T4, FREE Routine 07/15/2018 12:49 PM EST Hypopituitarism BASIC METABOLIC PANEL Routine 07/15/2018 12:49 PM EST Hypopituitarism documented in this encounter Results * Vitamin D, 25-Hydroxy (07/15/2018 12:49 PM EST) Vitamin D Total 25 OH 32 30 - 100 ng/mL [facility] Comment: Deficient <10 ng/mL Insufficient 10 to 29 ng/mL Sufficient 30 to 100 ng/mL Potential Intoxication >100 ng/mL According to the [place] National Osteoporosis Foundation, Vitamin D concentrations >30 ng/mL are sufficient to protect bone health. ??The National Kidney Foundation has similarly stated that patients with Vitamin D concentrations <30ng/mL should be considered to be insufficient or deficient. http://[employer]/nkf-guidelines http://[employer]/nejm-VitD The [employer] i[employer] Vitamin D Immunoassay detects both 25-OH Vitamin D2 and 25-OH Vitamin D3, but only a total Vitamin D concentration is reported. Blood specimen (specimen) 07/15/2018 12:49 PM EST 07/16/2018 7:49 AM EST Narrative Resulting Agency Comment Spec In Lab Christopher Hess MD CHEMISTRY ORDERABLES [facility] [place] [address] * (ABNORMAL) Basic Metabolic Panel (non-fasting) (07/15/2018 12:49 PM EST) Glucose 105 65 - 199 mg/dL [facility] Comment:Diabetes: >=200 mg/d L plus symptoms Blood Urea Nitrogen 16 10 - 20 mg/dL [facility] Creatinine 0.83 0.80 - 1.50 mg/dL [facility] Sodium 138 135 - 145 mmol/L [facility] Potassium 3.9 3.5 - 5.0 mmol/L [facility] Comment: Please note: ??Patients with WBC >100,000 may have falsely elevated Potassium levels. ??For accurate Potassium quantification in these patients send serum separator tube (gold top) for subsequent determinations. ??Contact the Clinical Chemistry Laboratory if there are any questions. Chloride 104 98 - 107 mmol/L [facility] Carbon Dioxide 19(L) 22 - 31 mmol/L [facility] Anion Gap 15 5 - 15 mmol/L [facility] Calcium 9.2 8.5 - 10.5 mg/dL [facility] Est Glomerular Filtration Rate 120 >=60 mL/min/1. 73 m?? [facility] Comment: The eGFR was calculated using the CKD-EPI equation. As with all creatinine based estimates of kidney function, eGFR values calculated with the CKD-EPI equation are not accurate in patients with acute kidney failure, extremes of body mass or the acutely ill. http://[employer]/[facility] MIAMInkf eGFR 139 >=60 mL/min/1. 73 m?? [facility] Comment: The eGFR was calculated using the CKD-EPI equation. As with all creatinine based estimates of kidney function, eGFR values calculated with the CKD-EPI equation are not accurate in patients with acute kidney failure, extremes of body mass or the acutely ill. http://[employer]/[facility]AM[facility] Blood specimen (specimen) 07/15/2018 12:49 PM EST 07/15/2018 12:55 PM EST Narrative Resulting Agency Comment Spec In Lab Christopher Hess MD CHEMISTRY ORDERABLES Performing Organization Address [facility] Co de Phone Number [facility] [place] [address] * T4, free (07/15/2018 12:49 PM EST) Free T4 1.24 0.93 - 1.70 ng/dL [facility] Blood specimen (specimen) 07/15/2018 12:49 PM EST 07/15/2018 12:55 PM EST Narrative Resulting Agency Comment Spec In Lab Christopher Hess MD CHEMISTRY ORDERABLES Performing Organization Address [facility] Co de Phone Number [facility] [place] [address] documented in this encounter Visit Diagnoses Diagnosis Hypopituitarism Panhypopituitarism documented in this encounter Care Teams Clinical Research Nurse Coordinator Relationship Specialty Start Date End Date Lc Venegas PA [address] [place] [address] PCP - General General Internal Medicine 09/03/17 documented as of this encounter
--- OUTSIDE RECORDS SUMMARY | 2024-03-05 15:55 | XMS_ITS | Encounter Summary ---
Author Organization [facility] Address [facility] [place] [address] Care Team Providers Care Manager Subway Name Role Phone Ren Vaz MD Primary Care Provider [phone] Reason for Referral * Consultation (Routine) - Closed Specialty Diagnoses / Procedures Referred By Duyen bui Referred To Contact Maxillofacial Surgery Diagnoses Extraction of tooth needed Marques Hu DMD [address] [place] [address] Joe Nguyen PA [facility] [place] [address] Referral ID Status Reason Start Date Expiration Date V isits Requested Visits Authorized [id number] Closed Consult, Test & Treat 08/17/2021 08/17/2022 1 1 Encounter Details Date Type Department Care Team (Latest Contact Info) Description 08/17/2021 Transcribe Orders [place] [address] Gabriela Sandra Extraction of tooth needed Social History Tobacco Use Types Packs/Day Years Used Date Smoking Tobacco: Never Smokeless Tobacco: Never Alcohol Use Standard Drinks/Week Comments No 0 (1 standard drink = 0.6 oz pur e alcohol) Sex and Gender Information Value Date Recorded Sex Assigned at Not on file Gender Identity Not on file Sexual Orientation Not on file documented as of this encounter Plan of Treatment Scheduled Referrals Name Type Priority Associated Diagnoses Order Schedule Referral to Maxillofacial Surgery Outpatient Referral Routine Extraction Of Tooth Needed Ordered: 08/17/2021 documented as of this encounter Visit Diagnoses Diagnosis Extraction of tooth needed documented in this encounter Care Teams Manager Subway Relationship Specialty Start Date End Date Ren Vaz MD [address] [place] [address] PCP - General Family Medicine 06/02/20 documented as of this encounter
--- OUTSIDE RECORDS SUMMARY | 2024-03-05 15:55 | XMS_ITS | Encounter Summary ---
Author Organization [facility] Address [address] [place] [address] Care Team Providers Care Pvc Monitor Name Role Phone Yan Demarco MD Primary Care Provider Corin Skinner MD Primary Care Provider Akil Serrano MD Primary Care Provider [phone] Encounter Details Date Type Department Care Team (Late st Contact Info) Description 10/05/2004 Results Only [facility] Pediatric Neurology - [address] [place] [address] [place], [place] [address] Ade Álvarez MD [address] [place] [phone] Social History Tobacco Use Types Packs/Day Years Used Date Smoking Tobacco: Never Assessed Sex and Gender Information Value Date Recorded Sex Assigned at Not on file Gender Identity Not on file Sexual Orientation Not on file documented as of this encounter Plan of Treatment Upcoming Encounters Date Type Department Care Team (Late st Contact Info) Description 09/09/2024 10:[address] [facility] Endocrinology - [facility] [address] [place] [address] Day Littlejohn MD PhD [address] [place] [address] [address] [place] [address] documented as of this encounter Procedures Procedure Name Priority Date/Time Associated Diagnosis Comments CYTOPATHOLOGY Routine 10/05/2004 0:00 EST documented in this encounter Results * CYTOPATHOLOGY (10/05/2004 0:00 EST) Pathology Report: CYTOPATHOLOGY REPORT Reports generated via electronic interface contain original data; however they are lacking the format of the original report. Caution should be taken when reading/interpreti ng unformatted reports. Name: ? MIGUEL ANGEL MASON ? Accession #: ? [id number] : ? 1990 (Age: 14) ??M ?Collect Date: ? 10/05/2004 Location: ? B005 ? Receive Date: ? 10/05/2004 Provider: ? ADE Ngo* GAMA PANG Copy to: ?TOO DIAZ MD ? CYTOLOGIC DIAGNOSIS: ? Suprasellar cyst content, cytologic evaluation: - No malignant cells identified. - Keratinized squamous cells and anucleate squames present. ??See comment. ? COMMENT: ? Multiple fragments of keratin, many anucleated squamous cells, as well as nucleated squamous cells are present in this specimen. ??This may represent cystic lesions such as craniopharyngioma, epidermoid cysts, dermoid cysts, Rathke cleft cyst. Clinical correlation is recommended. ??(Dr. Jimenez)/[facility] Document reviewed and electronically signed by: ? GABRIEL JACOBS MD [facility] Report Date: ??10/09/2004 12:19 By the signature above, the attending physician certifies that he/she has personally conducted a gross and/or microscopic examination of the described specimens and rendered or confirmed the above diagnosis. Specimen Type: ? Miscellaneous Fluid, Suprasellar cyst fluid brain Clinical History: ? Cyst, brain tumor ? Gross Description: ? Fluid soaked gauze was received and processed by selective cellular enhancement technique. ? End of Report ANISHA GARCIA 10/05/2004 10/05/2004 13: 56 EST Ade Álvarez MD PATHOLOGY ORDERABL ES [facility] [address] [place] [address] documented in this encounter Visit Diagnoses Not on filedocumented in this encounter Care Teams Pvc Monitor Relationship Specialty Start Date End Date Yan Demarco MD [address] [place] [phone] PCP - General 08/22/09 02/20/10 Corin Skinner MD [address] [place] [phone] PCP - General 10/24/08 08/21/09 Akil Serrano MD [address] [place] [address] [address] [place], [place] [address] PCP - General 02/21/10 04/16/11 documented as of this encounter
--- OUTSIDE RECORDS SUMMARY | 2024-03-05 15:55 | XMS_ITS | Encounter Summary ---
Author Organization [facility] Address [facility] [place] [address] Care Team Providers Care Plant Protection Supervisor Name Role Phone Subha Colon APRN Primary Care Provider [phone] Reason for Referral * Diagnostic Test (Routine) - Closed Specialty Diagnoses / Procedures Referred By Contac t Referred To Contact Radiology Diagnoses Growth hormone deficiency Fracture Procedures DXA Central Spine, Hip, and/or Whole Body (Generic) Wilder Zaidi DO [address] [place] [phone] [facility] Rad Xray [address] [place] [address] Referral ID Status Reason Start Date Expiration Date V isits Requested Visits Authorized [id number] Closed Specialty Service Requested 05/26/2019 05/25/2020 1 1 Reason for Visit * Diagnostic Test (Routine) - Closed Specialty Diagnoses / Procedures Referred By Contac t Referred To Contact Radiology Diagnoses Growth hormone deficiency Fracture Procedures DXA Central Spine, Hip, and/or Whole Body (Generic) Wilder Zaidi DO [address] [place] [phone] [facility] Rad Xray [address] [place] [address] Referral ID Status Reason Start Date Expiration Date V isits Requested Visits Authorized [id number] Closed Specialty Service Requested 05/26/2019 05/25/2020 1 1 Encounter Details Date Type Department Care Team (Latest Contact Info) Description 06/21/2019 10:30 AM EST - 06/21/2019 11:59 PM [facility] Hospital Encounter XRay at [address] [place] [address] Wilder Zaidi, DO [address] [address] Growth hormone deficiency; Fracture Discharge Disposition: Home Social History Tobacco Use [...] Sig Dispensed Refills Start Date End Date ferrous gluconate 324 mg (37.5 mg iron) Tablet Take 324 mg by mouth daily. acetaminophen (TYLENOL) 325 mg Tablet Take 2 [...] topically 2 times daily. 30 g 03/11/2018 omeprazole (PRILOSEC) 40 mg Capsule, Delayed Release(E.C.) [...] needed for incontinence 90 each 3 03/11/2018 metoprolol succinate (TOPROL-XL) 25 mg Tablet Sustained Release 24 hr Take 3 tablets by mouth daily. 30 tablet 12 03/12/2018 cyclobenzaprine (FLEXERIL) 5 mg Tablet Take 5 mg by mouth 3 times daily as needed for Muscle spasms. 11/01/2021 bisacodyl (DULCOLAX) [address] 1 suppository rectally daily as needed. 60 suppository 3 03/11/2018 11/01/2021 simethicone (MYLICON) 80 mg Tablet, Chewable Take 0.5 tablets by mouth every 6 hours as needed. 30 tablet 03/11/2018 11/01/2021 testosterone (ANDROGEL) 1 % (25 mg/2.5 g) Gel in Packet Place 5 g onto the skin nightly. 60 packet 3 03/11/2018 11/01/2021 documented as of this encounter Plan of Treatment Not on file documented as of this encounter Procedures Procedure Name Priority Date/Time Associated Diagnosis Comments DXA CENTRAL SPINE, HIP, AND/OR WHOLE BODY (GENERIC) Routine 06/21/2019 11:32 AM EST Growth hormone deficiency Fracture documented in this encounter Results * DXA Central Spine, Hip, and/or Whole Body (Generic) (06/21/2019 11:32 AM EST) Anatomical Region Laterality Modality C-spine, Hip N/A Other Impressions 06/24/2019 7:15 PM EST The Z-scores, not T-scores, are preferred BMD reporting in males younger than age 50. The measurements are below the expected range for age (defined as a Z-score less than -2 or a bone density measurement that is 2 standard deviations beneath age matched cohorts.) DEXA data sheets with BMD measurements and plots are available in Livekick under the imaging tab. Paper copies will be sent to providers without Livekick access. If you have received this report without the data sheet and do not have access to Live[employer], please contact Radiology Data Conversion Developer at [phone] Friday thru Friday 8am-4pm. ?? Thank you for letting us participate in the care of this patient. For questions regarding this report, please contact the number below. ? 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 Patienthas hardware and left hip COMPARISON: none FINDINGS: Lowest Z-score at a diagnostic region of interest: Z-score: -2.3, ALLISON: Lumbar spine IMPRESSION The Z-scores, not T-scores, are preferred BMD reporting in males youngerthan age 50. The measurements are below the expected range for age (defined as aZ-score less than -2 or a bone density measurement that is 2 standard deviationsbeneath age matched cohorts.) DEXA data sheets with BMD measurements and plots are available in EPicarrounder the imaging tab. Paper copies will be sent to providers without Live[employer] access.If you have received this report without the data sheet and do not haveaccess to EPicarro, please contact Radiology Data Conversion Developer at [phone] Friday thruFriday 8am-4pm. Thank you for letting us participate in the care of this patient. Forquestions regarding this report, please contact the number below. Wilder Rufina Zaidi DO IMG DEXA ORDERABLES documented in this encounter Visit Diagnoses Diagnosis Growth hormone deficiency Pituitary dwarfism Fracture Closed fracture of unspecified bone documented in this encounter Care Teams Plant Protection Supervisor Relationship Specialty Start Date End Date Subha Colon, MAX [address] [place] [address] PCP - General Family Medicine 04/30/19 06/01/20 documented as of this encounter
--- OUTSIDE RECORDS SUMMARY | 2024-03-05 15:55 | XMS_ITS | Encounter Summary ---
[place] [address] Care Team Providers Care Vendor Relationship Manager Name Role Phone Ren Vaz MD Primary Care Provider [phone] Encounter Details Date Type Department Care Team (Late st Contact Info) Description 08/16/2021 Transcribe Orders [place] [phone] Gabriela Sandra Social History Tobacco Use Types Packs/Day Years [...] on filedocumented in this encounter Care Teams Vendor Relationship Manager Relationship Specialty Start Date End Date Ren Vaz MD [facility] [place] [address] PCP - General Family Medicine 06/02/20 documented as of this encounter
--- OUTSIDE RECORDS SUMMARY | 2024-03-05 15:55 | XMS_ITS | Encounter Summary ---
Author Organization [facility] Address [facility] [place] [address] Care Team Providers Care Bookkeeping Service Sales Agent Name Role Phone Corin Skinner MD Primary Care Provider [phone] Encounter Details Date Type Department Care Team (Latest Contact Info) Description 09/02/2017 - 09/02/2017 12:04 AM EST Hospital Encounter [place] [address] Neo Gar MD [facility] [place] [address] Discharge Disposition: Home Social History Tobacco Use [...] Associated Diagnosis Comments FILM LIBRARY STORAGE ONLY CT ABDOMEN AND PELVIS Routine 09/02/2017 12:00 AM EST documented in this encounter Results * Film Library- Storage Only CT Abdomen & Pelvis (09/02/2017 12:00 AM EST) Narrative MATEO OSORIO - 09/02/2017 6:27 PM EST This exam is for storage only and is auto-finalizing. Neo Gar MD IMG FILM LIBRARY OR DERABLES JO [place] documented in this encounter Visit Diagnoses Not on filedocumented in this encounter Care Teams Bookkeeping Service Sales Agent Relationship Specialty Start Date End Date Corin Skinner MD PCP - General 05/29/10 09/02/17 documented as of this encounter
--- OUTSIDE RECORDS SUMMARY | 2024-03-05 15:55 | XMS_ITS | Encounter Summary ---
Author Organization [facility] Address [address] [place] [address] Care Team Providers Care Pan Greaser Name Role Phone Yan Demarco MD Primary Care Provider Corin Skinner MD Primary Care Provider Akil Serrano MD Primary Care Provider [phone] Encounter Details Date Type Department Care Team (Late st Contact Info) Description 11/13/2004 Before PRISM Converted Visit (Maple) [facility] - Maple conversion [address] [place] [address] Kylie Larson MD [address] [place] [address] [address] [place] [address] Social History Tobacco Use Types Packs/Day Years Used Date Smoking Tobacco: Never Assessed Sex and Gender Information Value Date Recorded Sex Assigned at Not on file Gender Identity Not on file Sexual Orientation Not on file documented as of this encounter Consult Notes * Kylie Larson MD - 02/14/2011 1610 EDT ADMISSION DATE: 10/05/2004 DATE OF CONSULTATION: 11/13/2004 HISTORY OF PRESENT ILLNESS: The patient is a 14-year-old boy with 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 He continues to have significant endocrine management issues including requiring close monitoring of sodium and treatment with DDAVP fordiabetes insipidus. He also is on steroids and thyroid replacement. I have not seen the patient forapproximately 1?? weeks. Since last being seen, he has been transferred out of the ICU onto the pediatric unit. He has had no measurable neurologic improvements. He continues to be nonverbal, although his mother today reported that she thinks he said mom on one occasion. He is intermittently following commands, gripping with his right hand. Physical therapy has been working with him and he is still max assist of 2-3 people for supine to sit and standing. He will bare weight through his right leg but not so much through his low leg. He has been wearing LNard boots on his bilateral lower extremities for positioning of his ankles. Also, monitoring of other extremity tone is noted. He is on minimal sedative medications, although occasionally receiving Tylenol with codeine. He is being treated for a urinary tract infection and otitis. He has had some increased irritability and agitation associated with his recent otitis media. MEDICATIONS: Medications were reviewed. PHYSICAL EXAMINATION: On physical exam, the patient was sleeping in bed. He was aroused during range of motion activities. He continues to have modified Elsie score of 3 in the ankles bilaterally,although with prolonged stretch I am able to get both ankles well past neutral. He has sustainable clonus on both ankles. Left upper extremity demonstrates modified Elsie score of 2 in the biceps.No other significant tone is noted in the upper extremities. In his right hand, he is able to reachand scratch his face spontaneously. He did not layer up specifically to command but seemed to automatically layer up my hand when I gripped his. He was able to also pull with his biceps semipurposefully. Ocular exam reveals a very sluggish left pupil. He did not seem to respond to visual challenges. However, interestingly when rapidly flexing his left elbow and bringing his hand towards his face, he seemed to squint repeatedly. This may simply be a motor overflow response. He had a positive suckling response when trying to open his mouth. shared services representative and social work continued to work on long-term placement for him after consideration of an acute rehabilitation stay. There is the possibility of a long-term pediatric subacute placement after an acute rehab stay if he is not improved enough for him to return home. We will continue to follow his medical progress. At this point, he is still not medically stable enough to tolerate therapy services. I spent approximately 15 minutes discussing his case with the attending physician, Jodi Parr, who is covering on the pediatric service. We discussed that it may still be useful to get an MRI to assess brain injury after the surgery. He has not yet had a postoperative MRI. There is some clarification that needs to be made with Dr. Álvarez as to why specifically he should not have an MRI. He did have a vascular clip placed during surgery which may be problematic. Dr. Parr will follow up with Dr. Álvarez in that respect. There is a neurology consult sammy hines as to other possibilities for lack of neurologic recovery. Once last thing that we discussed was the possibility of utilizing a stimulant medication such as amantadine, Provigil or Ritalin to try and stimulate the patients neurologic alertness. This should be clarified obviously with endocrine andneurosurgery before any attempts. I will follow up to continue assessing his progress, as he remains on the pediatric service. d - 11/13/2004 15:09:35 - KYLIE LARSON MD t - 11/13/2004 17:06:53 - mold stamper Voice ID - [id number] Document ID - [id number] cc: KYLIE DIAZ MD, REFERRING PHYSICIAN This document has been electronically signed by KYLIE LARSON MD on 11/14/2004 13:52:29. [id number] documented in this encounter Plan of Treatment Upcoming Encounters Date Type Department Care Team (Late st Contact Info) Description 09/09/2024 10:20 EST Office Visit [facility] Endocrinology - [address] [phone] Day Littlejohn MD PhD [address] [facility] [address] [place] [phone] documented as of this encounter Visit Diagnoses Not on filedocumented in this encounter Care Teams Pan Greaser Relationship Specialty Start Date End Date Yan Demarco MD [address] [place] [address] PCP - General 08/22/09 02/20/10 Corin Skinner MD [address] [address] PCP - General 10/24/08 08/21/09 Akil Serrano MD [address] [facility] [address] [place] [address] PCP - General 02/21/10 04/16/11 documented as of this encounter
--- OUTSIDE RECORDS SUMMARY | 2024-03-05 15:55 | XMS_ITS | Encounter Summary ---
Author Organization [facility] Address [address] [place] [address] Care Team Providers Care Director Of Product Management Name Role Phone Yan Demarco MD Primary Care Provider Corin Skinner MD Primary Care Provider Akil Serrano MD Primary Care Provider [phone] Encounter Details Date Type Department Care Team (Late st Contact Info) Description 10/08/2004 Before PRISM Converted Visit (Maple) [facility] - Maple conversion [address] [place] [address] Ade Malloy MD [address] [place] [phone] Social History Tobacco Use Types Packs/Day Years Used Date Smoking Tobacco: Never Assessed Sex and Gender Information Value Date Recorded Sex Assigned at Not on file Gender Identity Not on file Sexual Orientation Not on file documented as of this encounter Procedure Notes * Ricki, Conv Shift Production Supervisor - 02/13/2011 1243 EDT DATE: 10/05/2004 SURGEON: ADE MALLOY MD CELLULAR TOWER CLIMBER: JOSE ARMANDO ALEJO MD; ROSEY LITTLEJOHN MD; CONSTANTINO BERMUDEZ MD PREOPERATIVE DIAGNOSIS: POSTOPERATIVE DIAGNOSIS: PROCEDURE: Endoscopic drainage of sellar cyst (craniopharyngioma). ANESTHESIA: General. INDICATIONS: The patient is a 14-year-old male, who presented with left eye blindness. He had pallor of the left optic nerve on ophthalmologic exam. This prompted an MRI ofthe brain, which showed a large cystic lesion in the sellar region extending superiorly within the right frontal lobe and left greater than right hypothalamus. He did not have hydrocephalus. He presents today for elective drainage of the cyst with hope that with drainage of the cyst that he will get some return of vision and also the tumor would deliver itself, over time, down more to aneasily resectable location. NARRATIVE: After the full risks, benefits, and alternatives were described to the patient and the patients family, including blindness, , stroke, intracranial hemorrhage requiring craniotomy, cerebral spinal fluid leak, and the need for placement of a lumbar drain or fat graft harvesting as well as worsening damage to the good eye, endocrine dysfunction, and panhypopituitarism were describedand they understood. He was taken to the operating room and underwent general endotracheal anesthesia. He was given 75 mg of IV Hydrocortisone before the induction. He was noted to be preoperatively somewhat cortisol deficient. He underwent general endotracheal anesthesia. He was given perioperative antibiotics, and his head was placed in the [place] three-point headholder fixator device. At that point, the approach was done by Dr. Jose Armando Alejo. Please see his dictation for the details regarding this, but briefly, an endoscopic transnasal/transethmoidal/transsphenoidal approach was done toget me to the sella. When Ientered the field, the sphenoid sinus was nicely opened. The midline septum had been taken down and I could see the posterior portion of the anterior skull base as well as the inferior floor of the sella turcica. Several attempts were made with a pituitary rongeur to remove the inferior floor of the sella; however, this proved to be quite thick. A straight curette was th en used to try and thin out the outer surface cortex of the sella, but this was difficult as well. Therefore, a high speed air drillwas brought in and a small hole was made in the floor of the sella.Then this was enlarged with Kerrison 1 and 2 punches. Immediately noted underneath was a large darkmass, which appeared to be the anterior wall of his cyst. This was opened sharply with a [place] blade scalpel, and immediately, a large amount of fluid of a yellow color with some crystallization present in it egressed out of the hole under a moderate amount of pressure. Some of the solid particlesof the cyst were attempted to be removed and sent down for pathology. The specimen was not optimal,however. The cyst was then irrigated with a ventricular catheter gently. Some more thick secretions were removed this way. Then a piece of bone that had been harvested from the nasal approach was used to reconstruct the sellar floor. Tisseel was then placed over this, and at that point, the endoscope was removed and a nasal pack was placed on the right side. I was present for the entire procedure. Sponge and needle counts were correct x2. At the end of the case, he was taken out of the three-point headholder fixator, awoken from anesthesia, and taken to the intensive care unit. EBL: 50 cc. COMPLICATIONS: None. SPECIMENS: Cyst fluid. d - 10/05/2004 13:56:00 - ADE MALLOY MD t - 10/08/2004 07:58:16 - n Voice ID - [id number] Document ID - [id number] cc: JOSE ARMANDO LITTLEJOHN MD RESIDENT CONSTANTINO BERMUDEZ MD RESIDENT TOO DIAZ MD, REFERRING PHYSICIAN ADE MALLOY MD, ATTENDING PHYSICIAN This document has been electronically signed by ADE MALLOY MD on 10/08/2004 10:50:11. documented in this encounter Plan of Treatment Upcoming Encounters Date Type Department Care Team (Late st Contact Info) Description 09/09/2024 10:20 EST Office Visit [facility] Endocrinology - [address] [phone] Day Littlejohn MD PhD [address] [facility] [address] [place] [phone] documented as of this encounter Visit Diagnoses Not on filedocumented in this encounter Care Teams Director Of Product Management Relationship Specialty Start Date End Date Yan Demarco MD [address] [place] [address] PCP - General 08/22/09 02/20/10 Corin Skinner MD [address] [address] PCP - General 10/24/08 08/21/09 Akil Serrano MD 74 [facility] [address] [place], [place] [phone] PCP - General 02/21/10 04/16/11 documented as of this encounter
--- OUTSIDE RECORDS SUMMARY | 2024-03-05 15:55 | XMS_ITS | Encounter Summary ---
Author Organization [facility] Address [address] [place] [address] Care Team Providers Care Wood Machinist Apprentice Name Role Phone Yan Demarco MD Primary Care Provider Corin Skinner MD Primary Care Provider Akil Serrano MD Primary Care Provider [phone] Encounter Details Date Type Department Care Team (Late st Contact Info) Description 09/21/2004 Before PRISM Converted Visit (Maple) [facility] - Maple conversion [address] [place] [address] Ade Malloy MD [address] [place] [address] [phone] Social History Tobacco Use Types Packs/Day Years Used Date Smoking Tobacco: Never Assessed Sex and Gender Information Value Date Recorded Sex Assigned at Not on file Gender Identity Not on file Sexual Orientation Not on file documented as of this encounter Progress Notes * Ricki, Conv Retail Sales Clerk - 02/13/2011 1150 EDT INITIAL EVALUATION September 20, 2004 Kris Drew MD [address] [place] [address] [place] [address] Drew, I had the pleasure of meeting Miguel Angel in the pediatric neurosurgery clinic today. I saw him as a referral from Dr. Mckenna for his craniopharyngioma. This is newly diagnosed. 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 He also has some decreased vision in his right eye. He is essentially only able to perceive motion in his left eye. An MRI shows a rather large midline cystic craniopharyngioma projecting anteriorly to the chiasm. It does extend up superiorly with a little bit of the solid component of the tumor embedded in the right frontal lobe. There of course is some compression of the hypothalamus. Past medical history is significant for serious anxiety disorder, learning disability, and some other psychosocial issues. His mother is on chronic dialysis for diabetes. Family history is not significant. On physical exam he is a pleasant but anxious 14-year-old male. Although I did not examine his genitaliatoday, there is report of him not quite reaching puberty. His left eye is obviously affected with him only being able to perceive gross motion. His right eye for the most part seems to be okay. His bulk and tone are normal. He is slightly overweight. He has quite a short attention span. He has no extremity weakness. I reviewed his MRI and the one good favorable portion of this case is there is fairly large cystic component, which may help us decompress his optic nerve. The approach to this specific tumor will mitzy at least debulk it, entering in cyst, removing compression off of his optic nerve. If we can getthe tumor complete excised without difficulty, we will proceed in that direction. However if we encounter any resistance specifically related to the hypothalamus, I have no problem leaving some tumorbehind and then having it subsequently treated with radiotherapy. I had a long discussion with the mother and the social work msw about the risks of surgery including , paralysis,stroke, blindness, cerebral spinal fluid leak, pituitary and hypothalamic damage, bleeding requiring blood transfusion, need for jail hormone replacement, seizures. They understand this and would like to proceed;knowing that the biggest threat here is that if it is left untreated it certainly will threaten hisgood eye. I will set him up for surgery on the of this month. I would like him to see our pediatric journalists and other writers Dr. Edwards, and I have ordered a battery of endocrinological and other tests today. Because he is a very difficult blood stick, we will attempt this at the hospital here. Should this fail, we may need to invoke your help in obtaining in obtaining a blood sample. Hopefully this will not be the case. We will keep you abreast to this progress, and hopefully we are able to help Miguel Angel out. Thank you very much. Sincerely, This document has been electronically signed by ADE MALLOY MD on 09/24/2004 09:42:19. ADE MALLOY MD Accounts Payable Technician [facility] Division of Neurological Surgery - ADE MALLOY MD - an Voice ID: [id number] Document ID: [id number] CC: KRIS MCKENNA MD documented in this encounter Plan of Treatment Upcoming Encounters Date Type Department Care Team (Late st Contact Info) Description 09/09/2024 10:20 EST Office Visit [facility] Endocrinology - [address] [id number] Day Littlejohn MD PhD [address] [place] [address] [address] [place] [address] documented as of this encounter Visit Diagnoses Not on filedocumented in this encounter Care Teams Wood Machinist Apprentice Relationship Specialty Start Date End Date Yan Demarco MD [address] [place] [address] PCP - General 08/22/09 02/20/10 Corin Skinner MD [address] [place] [address] [phone] PCP - General 10/24/08 08/21/09 Akil Serrano MD [address] [id number] PCP - General 02/21/10 04/16/11 documented as of this encounter
--- OUTSIDE RECORDS SUMMARY | 2024-03-05 15:55 | XMS_ITS | Encounter Summary ---
Author Organization [facility] Address [facility] [place] [address] Care Team Providers Care Press Tender Incendiary Grenade Name Role Phone Lc Venegas Primary Care Provider [phone] Encounter Details Date Type Department Care Team (Late st Contact Info) Description 03/22/2019 [place] [phone] Heidi Yi MD [facility] [place] [address] Social History Tobacco Use Types Packs/Day Years [...] encounter Miscellaneous Notes * Telephone Encounter - Heidi Yi MD - 03/22/2019 10:05 AM EDT Patient seen at [facility] for lethargy, workup negative so far including CBC, CMP, CT Head, CXR and UA. Interestingly Utox was positive for THC. Patient missed his Desmopressin doses yesterday and routinerepeat BMP today noted a Na of 153. According to chart review it seems that the patient was on a strict schedule of 0.1mg QAM, 0.15mg QHS and 3.5L fluid restrict which his care takers were following vigilantly. We recommended restarting this regimen and monitoring him with serial BMPs and I/O untilhe is stable. We also recommended giving [facility] a call since it seems he was most recently followed by them and there may be information we do not have access to. Case discussed with on-call attending Dr. Morris. Heidi Yi MD PGY-4 [facility] Endocrinology Fellow Pager #[phone] documented in this encounter Plan of Treatment Not on file documented as of this encounter Visit Diagnoses Not on filedocumented in this encounter Care Teams Press Tender Incendiary Grenade Relationship Specialty Start Date End Date Lc Veneags PA [address] [place] [address] PCP - General General Internal Medicine 09/03/17 documented as of this encounter
--- OUTSIDE RECORDS SUMMARY | 2024-03-05 15:55 | XMS_ITS | Encounter Summary ---
Author Organization [facility] Address [facility] [place] [address] Care Team Providers Care Willow Specialists Name Role Phone Ren Vaz MD Primary Care Provider [phone] Reason for Visit * Consultation (Routine) - Closed Specialty Diagnoses / Procedures Referred By Contshalonda bui Referred To Contact Maxillofacial Surgery Diagnoses Extraction of tooth needed Marques Hu, DMD [address] [place] [address] Joyce Kelly PA [facility] [place] [address] Referral ID Status Reason Start Date Expiration Date V isits Requested Visits Authorized [id number] Closed Consult, Test & Treat 08/17/2021 08/17/2022 1 1 Encounter Details Date Type Department Care Team (Late st Contact Info) Description 11/01/2021 11:00 AM EDT Office Visit [place] [address] Joyce Kelly PA [facility] [place] [address] Dental caries Social History Tobacco Use Types Packs/Day Years [...] Taken Comments Blood Pressure - - Pulse - - Temperature - - Respiratory Rate - - Oxygen Saturation - - Inhaled Oxygen Concentration - - Weight 93.4 kg (206 lb) 11/01/2021 11:10 AM EDT Height 165.1 cm (5' 5) 11/01/2021 11:10 AM EDT Body Mass Index 34.28 11/01/2021 11:10 AM EDT documented in this encounter Progress Notes * Joyce Kelly PA - 11/01/2021 11:00 AM EDT Images from the original note were not included. [facility]-MAXILLOFACIAL SURGERY OUTPATIENT CLINIC INITIAL CONSULTATION VISIT - EXTRACTION Name: Miguel Angel Burgos Age/Sex: 31 y.o. male History of Present Illness Miguel Angel Burgos is a 31 y.o. male referred by Marques Hu for consultation regarding potential dental extractions Authorized by: Marques Hu DMD Referral to Maxillofacial Surgery To: JOYCE KELLY [phone] Specialty: My question or request is: evaluate patient for hospitalized dental care for special needs adult ext [phone] ? Referral Information Reference# [id number] Referral type: Consultation # Visits requested: 1 Referral Reason: Consult, Test & Treat Start Date: Aug 17, 2021 End Date: To be determined by Insurer Diagnosis: Extraction of tooth needed (K08.9) ?? A complete history of the Miguel Angel 's symptoms and physical signs were reviewed with attention to initial findings and progression, pain, bleeding, swelling, lumps, bumps, drainage, dysphagia, odynophagia, paresthesia, dysarthria and systemic effects. Pertinent notations from today's history: ?? Presents with animal care supervisor, Carmel, today ?? The patient's guardian is his sister, Bettina, he reportedly resides at [facility] ?? Per chart review has history of panhypopituitarism, DI, adrenal insufficiency, hypothyroidism, and CVA with residual partial left-sided weakness, cortical blindness, seizure disorder ?? His longtime dentist is Dr. Ray ?? He reportedly developed issues with an abscessed tooth over a year ago. Subsequently had this along with other teeth extracted by another oral surgeon, Dr. Walden, with general anesthesia ?? Per documentation we were able to receive, extractions included teeth #1, 2, 15, 18, 19, 32 ??? Reports no complaints of pain or difficulty with eating ??? Reportedly the oral surgeon had recommended additional extractions including some of the anterior maxillary teeth. Per the showcase trimmer this was mainly in the setting of concern that the teeth may be fragile and will require extraction in the future. They would appreciate a second opinion as tothe anterior maxillary teeth ??? It is somewhat unclear as to the dentist's recommendations in regards to these teeth ??? Reportedly they are able to perform oral care at the longterm with the patient on a daily basis including brushing and flossing ??? He reportedly is able to eat and drink without issue at this time Past Medical/Social/Dental History No past medical history on file. Patient Active Problem List Diagnosis Code ??? 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 Secondary hypothyroidism E03.8 ??? Seizure disorder G40.909 ??? Insomnia G47.00 ??? Blind H54.7 ??? CVA (cerebral vascular accident) I63.9 ??? Urinary incontinence R32 ??? Gastroesophageal reflux disease K21.9 ??? Osteoporosis M81.0 ??? Sleep disorder G47.9 Social History Tobacco Use ??? Smoking status: Never Smoker ??? Smokeless tobacco: Never Used Substance Use Topics ??? Alcohol use: No ??? baclofen (LIORESAL) 20 mg Tablet ??? cetirizine (ZyrTEC) 10 mg Tablet ??? hydrOXYzine (Atarax) 25 mg Tablet ??? montelukast (Singulair) 10 mg Tablet ??? Magnesium Gluconate 27 mg magnesium (500 mg) Tablet ??? mupirocin (Bactroban) 2 % Ointment ??? pyridoxine, Vitamin B6, (Vitamin B6) 50 mg Tablet ??? menthol/camphor (BIOFREEZE-ILEX TOP) ??? ferrous gluconate 324 mg (37.5 mg iron) Tablet ??? acetaminophen (TYLENOL) 325 mg Tablet ??? aspirin 81 mg Tablet, Chewable ??? atorvastatin (LIPITOR) 40 mg Tablet ??? calcium carbonate (TUMS) 200 mg calcium (500 mg) Tablet, Chewable ??? cholecalciferol, Vitamin D3, 1,000 unit Tablet ??? desmopressin (DDAVP) 0.1 mg Tablet ??? desmopressin (DDAVP) 0.1 mg Tablet ??? hydrocortisone (CORTEF) 20 mg Tablet ??? hydrocortisone (CORTEF) 10 mg Tablet ??? levothyroxine (SYNTHROID) 75 mcg Tablet ??? melatonin 3 mg Tablet ??? methyl salicylate-menthol (BENGAY) 15-10 % Cream ??? omeprazole (PRILOSEC) 40 mg Capsule, Delayed Release(E.C.) ??? polyethylene glycol (MIRALAX) 17 gram Powder in Packet ??? QUEtiapine (SEROQUEL) 50 mg Tablet ??? senna-docusate (PERICOLACE) 8.6-50 mg Tablet ??? traZODone (DESYREL) 50 mg Tablet ??? zonisamide (ZONEGRAN) 100 mg Capsule ??? QUEtiapine (SEROQUEL) 50 mg Tablet ??? Diaper,Brief, Adult,Disposable Misc ??? metoprolol succinate (TOPROL-XL) 25 mg Tablet Sustained Release 24 hr Allergies Allergen Reactions ??? Lopid [Gemfibrozil] Review of Systems Pertinent positive and negative findings discussed above. ROS with attention to cardiac, pulmonary,hepatic, renal, neurologic and dermatologic systems reviewed with relevant findings as noted. Physical Exam Vitals: Height 165.1 cm (5' 5), weight 93.4 kg (206 lb). Body mass index is 34.28 kg/m??. General: No acute distress, pleasant, seated in wheelchair, appears to respond to commands and is cooperative with dental examination Focused oral exam: No trismus No oral lesions visualized Class 5 caries #7, 9, 10, 11 Plaque build up along gingiva mainly maxillary teeth Mild gingival erythema No obvious carious involvement of mandibular teeth Neuro: a/o x3 Neck: soft, supple Psych: appropriate, responds to questions normally Imaging Panorex obtained today as well as PA films available from dental office. Panorex appears to be status post extraction of the teeth mentioned in HPI. There are various restorations of most of the remaining teeth. No obvious periapical radiolucencies Personally reviewed and evaluated ASSESSMENT & RECOMMENDATIONS Assessment: class V caries of #7,9,10,11 in patient residing in longterm setting with complex medical history as described above Recommendations/plan: Clinical scenario was discussed with Dr. Luke. Discussed with the patient and group care worker thatultimately our recommendations would typically be to defer to the dentist's evaluation and recommended treatment plan, and that we are not able to offer restorative measures in our practice nor distinguish whether this would be the most appropriate course. We were able to contact her dentist's office and it does seem they had proposed shinto of teeth #7,9,10,11,31. As above would ultimately defer to their recommendations; nonetheless, I do think from a quality oflife standpoint it may make sense to preserve these teeth as it does sound as though he has good ability to eat at this point and is cooperative with dental care at his residence which does sound to be appropriate. I did discuss that we would be happy to coordinate extractions under anesthesia should this become part of a recommended plan. Additional questions were addressed and the group care worker appeared satisfied with the above discussion. We appreciate the opportunity to be involved in Mr. Burgos's care. NAKIA Mims-C - Oral-Maxillofacial Surgery 11/02/2021 10:01 AM This note may have incorporated [id number] technology and though reviewed typographical or syntax errors may remain. documented in this encounter Plan of Treatment Not on file documented as of this encounter Visit Diagnoses Diagnosis Dental caries Unspecified dental caries documented in this encounter Care Teams Willow Specialists Relationship Specialty Start Date End [place] [phone] PCP - General Family Medicine 06/02/20 documented as of this encounter
--- OUTSIDE RECORDS SUMMARY | 2024-03-05 15:55 | XMS_ITS | Encounter Summary ---
Author Organization [facility] Address [facility] [place] [address] Care Team Providers Care Partridge Farmer Name Role Phone Lc Venegas Primary Care Provider [phone] Reason for Visit * Reason Comments Other Patient is here for new evaluation panhypopituitarism. * Consultation (Routine) - Specialty Diagnoses / Procedures Referred By Duyen bui Referred To Contact Endocrinology Diagnoses panhypopituitarism Lc Venegas PA [address] [place] [address] [facility] [address] [place] [phone] Referral ID Status Reason Start Date Expiration Date V isits Requested Visits Authorized [id number] Consult, Test & Treat Connection Center 04/14/2018 04/14/2019 6 6 Encounter Details Date Type Department Care Team (Latest Contact Info) Description 07/15/2018 11:00 AM EST Office [place] [address] Christopher Hess MD [facility] [place] [address] Mariola Thomson MD [facility] [place] [address] Hypopituitarism (Primary Dx) Social History Tobacco Use Types [...] Sign Reading Time Taken Comments Blood Pressure 116/79 07/15/2018 11:22 AM EST Pulse 91 07/15/2018 11:22 AM EST Temperature - - Respiratory Rate - - Oxygen Saturation 97% 07/15/2018 11: 22 AM EST Inhaled Oxygen Concentration - - Weight 96.9 kg (213 lb 9.6 oz) 07/15/2018 11:22 AM EST With shoes Height 177.8 cm (5' 10) 07/15/2018 11: 22 AM EST Patient reports Body Mass Index 30.65 07/15/2018 11:22 AM EST documented in this encounter Progress Notes * Mariola Thomson CW - 07/15/2018 11:00 AM EST Subjective: Patient ID: Miguel Angel Burgos is a 28 y.o. male. HPI Miguel Angel Burgos is a 28 y/o male with a past medical hx significant for panhypopituitarism, hypothyroidism, and CVA with residual partial left-sided weakness, cortical blindness, seizure disorder. Miguel Angel was admitted to [facility] from 09/02/2017 until 03/12/2018 due to a seizure with associated acetabular fracture. Pt reports that he has not had a seizure in over 1 year. He is largely confined to his wheelchair but physical therapy works with him 1x monthly. He has very frequent muscle contractions in the calves, hands, lumbar spine which cause severe pain to the point of screaming out. He was begun on flexeril for this but this seems to be helping less and less. Pt was noted to be very sensitive to adjustment in his DDAVP dosing. Per d/c summary: His hospital course was notable for post-operative hyponatremia in the setting of his prior history of panhypopituitarism and polydipsia. Following sodium stablization, his DDAVP was inadvertently held all day when his serum sodium was noted to be 135 resulting in signficant polyuria and hypernatremia. Following resumption of DDAVP and encouragement of PO fluids with the assistance of his caregivers this hypernatremia resolved and UOP returned to normal levels. He was fluid restricted and restarted on his home DDAVP. Sodium remained variable requiring modification of fluid restriction to as high as 4.5L and low as 2.oL. When he did not drink sufficient fluids he became hypernatremic to as high as 155. At that time his ddavp was increased from 0.05 mg TID to 0.1 mg TID. Generally, when hedoes not drink sufficient fluids, his sodium level increases above normal range. As he is very sensitive to changes in ddavp dosing, please attempt to increase fluid intake to correct hypernatrmeia before increasing ddavp dosing. Current dosing is 0.05, 0.05, 0.1 with 3L fluid restriction with appropriate sodium levels, but continues to require close monitoring going forward particularly if any changes. Also per d/c summary: Decreased hydrocortisone from 20/10/10 to 20/10 per endocrine on 11/16. Follow-up with endocrinology for discussion on bisphosphonate with steroid use and fracture. Increased synthroid to 225 mcg during hospitalization based on multiple TSH/free T4 measurements, with the assistance of the endocrinology team. Miguel Angel is urinating normal amount daily. Getting 3.5 L water daily. Desmopressin 1 tab then 1.5 atnight. (0.1mg) -->0.15 Levothyroxine is with breakfast, there is no pause before food ingestion with this. He is taking his hydrocortisone 20mg qAM and 10mg at lunch. Previous endocrinology provider noted: With regards to his secondary hypogonadism, currently on AndroGel 1% 3 pumps daily. He has had low-normal levels of testosterone in the past, but any attempt to increase his AndroGel has caused significant agitation and irritation, so we are maintaining him on a low dose of testosterone to help protect his bones, perhaps derive some energy for him. Social Hx: Lives in [facility] [phone] Lala Posada Sister is DOPA Meds: Current Outpatient Medications: ??? ferrous gluconate 324 mg (37.5 mg iron) Tablet, Take 324 mg by mouth daily., Disp: , Rfl: ??? cyclobenzaprine (FLEXERIL) 5 mg Tablet, Take 5 mg by mouth 3 times daily as needed for Muscle spasms., Disp: , Rfl: ??? acetaminophen (TYLENOL) 325 mg Tablet, Take 2 tablets by mouth every 6 hours as needed for Pain., Disp: 30 tablet, Rfl: 1 ??? aspirin 81 mg Tablet, Chewable, Take 81 mg by mouth daily., Disp: 30 tablet, Rfl: 3 ??? atorvastatin (LIPITOR) 40 mg Tablet, Take 1 tablet by mouth every evening., Disp: 90 tablet, Rfl: 3 ??? calcium carbonate (TUMS) 200 mg calcium (500 mg) Tablet, Chewable, Take 1 tablet by mouth nightly., Disp: 30 tablet, Rfl: 3 ??? cholecalciferol, Vitamin D3, 1,000 unit Tablet, Take 1 tablet by mouth daily., Disp: 90 tablet,Rfl: 3 ??? desmopressin (DDAVP) 0.1 mg Tablet, Take 1 tablet by mouth every morning., Disp: 30 tablet, Rfl: 3 ??? hydrocortisone (CORTEF) 20 mg Tablet, Take 1 tablet by mouth every morning., Disp: 30 tablet, Rfl: 3 ??? hydrocortisone (CORTEF) 10 mg Tablet, Take 1 tablet by mouth Daily at Noon., Disp: 30 tablet, Rfl: 3 ??? levothyroxine (SYNTHROID) 75 mcg Tablet, Take 3 tablets by mouth every morning., Disp: 90 tablet, Rfl: 3 ??? melatonin 3 mg Tablet, Take 3 tablets by mouth nightly., Disp: 90 tablet, Rfl: 3 ??? methyl salicylate-menthol (BENGAY) 15-10 % Cream, Apply 1 Application topically 2 times daily.,Disp: 30 g, Rfl: 0 ??? metoprolol succinate (TOPROL-XL) 25 mg Tablet Sustained Release 24 hr, Take 3 tablets by mouth daily., Disp: 30 tablet, Rfl: 12 ??? omeprazole (PRILOSEC) 40 mg Capsule, Delayed Release(E.C.), Take 1 capsule by mouth daily., Disp: 30 capsule, Rfl: 3 ??? polyethylene glycol (MIRALAX) 17 gram Powder in Packet, Take 17 g by mouth daily as needed (If not bowel movement in last 24 hours.)., Disp: 14 each, Rfl: 0 ??? QUEtiapine (SEROQUEL) 50 mg Tablet, Take 5 tablets by mouth nightly., Disp: 30 tablet, Rfl: 3 ??? senna-docusate (PERICOLACE) 8.6-50 mg Tablet, Take 2 tablets by mouth 2 times daily., Disp: 60 tablet, Rfl: 11 ??? testosterone (ANDROGEL) 1 % (25 mg/2.5 g) Gel in Packet, Place 5 g onto the skin nightly., Disp: 60 packet, Rfl: 3 ??? traZODone (DESYREL) 50 mg Tablet, Take 1 tablet by mouth nightly., Disp: 90 tablet, Rfl: 3 ??? zonisamide (ZONEGRAN) 100 mg Capsule, Take 2 capsules by mouth nightly., Disp: 30 capsule, Rfl:3 ??? QUEtiapine (SEROQUEL) 50 mg Tablet, Take 1 tablet by mouth 2 times daily as needed., Disp: 60 tablet, Rfl: 3 ??? bisacodyl (DULCOLAX) 10 mg Suppository, Place 1 suppository rectally daily as needed. (Patient not taking: Reported on 07/15/2018), Disp: 60 suppository, Rfl: 3 ??? desmopressin (DDAVP) 0.1 mg Tablet, Take 1.5 tablets by mouth nightly. (Patient not taking: Reported on 07/15/2018), Disp: 30 tablet, Rfl: 3 ??? simethicone (MYLICON) 80 mg Tablet, Chewable, Take 0.5 tablets by mouth every 6 hours as needed. (Patient not taking: Reported on 07/15/2018), Disp: 30 tablet, Rfl: 0 ??? Diaper,Brief, Adult,Disposable Misc, Daily 24/ as needed for incontinence, Disp: 90 each, Rfl:3 Review of Systems Musculoskeletal: Cramps in the legs- just rx flexeril TID Neurological: Positive for headaches (per value engineer). Objective:BP 116/79 (BP Location (NBP): Left arm, Patient Position: Sitting, BP Cuff Sizes: Large Adult (32-43 cm)) Pulse 91 Ht 177.8 cm (5' 10) Comment: Patient reports Wt 96.9 kg (213 lb 9.6oz) Comment: With shoes SpO2 97% BMI 30.65 kg/m?? Physical Exam Constitutional: Young male sitting in wheelchair, does scream out in pain due to cramping in hands and legs Responds appropriately to questions Neck: No thyromegaly present. Cardiovascular: Normal rate and regular rhythm. Pulmonary/Chest: Effort normal and breath sounds normal. Abdominal: He exhibits no distension. There is no tenderness. Musculoskeletal: Mild dependent edema in lower extremities Muscle waiting of the arms and legs is present Skin: Skin is warm and dry. Ref. Range 03/10/2018 13:48 Sodium Latest Ref Range: 135 - 145 mmol/L 138 Potassium Latest Ref Range: 3.5 - 5.0 mmol/L 3.9 Chloride Latest Ref Range: 98 - 107 mmol/L 100 CO2 Latest Ref Range: 22 - 31 mmol/L 24 Anion Gap Latest Ref Range: 5 - 15 mmol/L 14 BUN Latest Ref Range: 10 - 20 mg/dL 11 Creatinine Latest Ref Range: 0.80 - 1.50 mg/dL 0.70 (L) eGFR Latest Ref Range: >=60 mL/min/1.73 m?? 129 eGFR Latest Ref Range: >=60 mL/min/1.73 m?? 150 Glucose Lvl Latest Ref Range: 65 - 199 mg/dL 90 Calcium Latest Ref Range: 8.5 - 10.5 mg/dL 8.7 Ref. Range 01/26/2018 06:13 Free T4 Latest Ref Range: 0.93 - 1.70 ng/dL 0.95 Ref. Range 07/15/2018 12:49 Sodium Latest Ref Range: 135 - 145 mmol/L 138 Potassium Latest Ref Range: 3.5 - 5.0 mmol/L 3.9 Chloride Latest Ref Range: 98 - 107 mmol/L 104 CO2 Latest Ref Range: 22 - 31 mmol/L 19 (L) Anion Gap Latest Ref Range: 5 - 15 mmol/L 15 BUN Latest Ref Range: 10 - 20 mg/dL 16 Creatinine Latest Ref Range: 0.80 - 1.50 mg/dL 0.83 eGFR Latest Ref Range: >=60 mL/min/1.73 m?? 120 eGFR Latest Ref Range: >=60 mL/min/1.73 m?? 139 Glucose Lvl Latest Ref Range: 65 - 199 mg/dL 105 Calcium Latest Ref Range: 8.5 - 10.5 mg/dL 9.2 25-OH Vit D Total Latest Ref Range: 30 - 100 ng/mL 32 Free T4 Latest Ref Range: 0.93 - 1.70 ng/dL 1.24 Assessment and Plan: Miguel Angel Burgos is a 28 y/o male with a past medical hx significant for panhypopituitarism and CVA with residual partial left-sided weakness, cortical blindness, seizure disorder. He is presenting todayin f/u from hospital discharge for a prolonged and complicated course. As highlighted above, his sod ium was quite challenging to manage and he required frequent adjustments in DDAVP and or fluid intake. Unfortunately, Miguel Angel is experiencing severe muscle cramping which is recalcitrant to flexeril. Electrolyte abnormalities do not appear to be contributing to this issue as they are all normal today. At this point, Miguel Angel is using 0.1mg every morning and 0.15mg every evening of DDAVP. His fluid restriction has been liberalized to 3.5L. Based upon his serum sodium level and his urine output which is hard to measure given incontinence but sounds to be regular, this is working well for him. I will not make adjustments in this medication or his fluid restriction. I have asked his value engineer Lala gardneret me know if his urinary output appears to have significantly changed. She reported that his PCP NAKIA Cifuentes was checking q1 month BMPs to ensure sodium is normal. I encouraged them to consider spacing these out as it appears we have reached a steady dose of DDAVP. With respect to Miguel Angel's hypothyroidism, his Free T4 level is normal today. I will leave his levothyroxine dose at 75mcg qd. Finally, I have discussed with Lala the fact that Miguel Angel's hydrocortisone dose is likely sufficient at this time. I did provide her with sick day rules and encouraged her to ensure emergency care workers are aware of Miguel Angel's condition in the setting of inability to take PO intake at which point he would need stress dose IV steroids. Finally, one important consideration we should decide is the treatment of Miguel Angel's likely osteoporosis. He incurred a lower extremity fracture with a seizure last year. We know he has low testosterone. This coupled with his largely wheelchair bound state does make osteoporosis extremely likely. Thismay prove challenging to manage but the first step towards treatment will be to obtain a DEXA of the wrist locally. I have asked Lala to attempt to coordinate this. Unable to obtain NTX urine sample today unfortunately (pt does not control bladder). It appears that he was previously on testosteronetherapy via gel- will potentially restart this pending DEXA results. #dutta-hypopituitarism with secondary adrenal insufficiency, diabetes insipidus, hypogonadism, hypothyroidism -continue DDAVP 0.1mg qAM, 0.15mg qhs without changes in this dose or fluid restriction -okay to space out BMPs from monthly to q2 or q3 months with NAKIA Cifuentes -continue levothyroxine 75mcg qd -continue hydrocortisone 20mg qAM, 10mg at noon -provided sick day rules for Lala -encouraged her to inform all workers at the facility where Miguel Angel lives to consider the fact that he will require stress dose steroids in critical illness -Miguel Angel likely will not wear an emergency alert bracelet -holding off on treatment of hypogonadism at this time #suspect osteoporosis in setting of low testosterone, wheelchair bound state -obtain wrist DEXA locally Case discussed and seen with staff Waredresser, Christopher Hess MD. Of note, pt previously followed with Wilder Zaidi at [facility]- will route this note to him as pt's care providers wish him to follow here since it is closer for them in his new home. Route to NAKIA Cifuentes and Dejuan. F/u in 1 year or sooner for any changes whatsoever. Will f/u DEXA over the telephone as it is hard for them to get here. Mariola Thomson MD PGY-4 [facility] Endocrinology Fellow Pager #[phone] * Christopher Hess MD - 07/15/2018 11:00 AM EST I saw this patient with Dr Thomson . I reviewed the santos portions of the history and physical exam, andreviewed pertinent lab data. I answered all patient questions. I was involved in all medical decision making and agree with this plan. I agree with Dr thomson that osteoporosis is likely an issue but difficult to assess in this circumstance- we will start with a wrist density documented in this encounter Plan of Treatment Not on file documented as of this encounter Results * T4, free (07/15/2018 12:49 PM EST) Free T4 1.24 0.93 - 1.70 ng/dL [facility] Blood specimen (specimen) 07/15/2018 12:49 PM EST 07/15/2018 12:55 PM EST Narrative Resulting Agency Comment Spec In Lab Christopher Hess MD CHEMISTRY ORDERABLES [facility] [place] [address] * (ABNORMAL) Basic Metabolic Panel (non-fasting) (07/15/2018 12:49 PM EST) Pathologist [facility] Glucose 105 65 - 199 mg/dL [facility] Comment:Diabetes: >=200 mg/d L plus symptoms Blood Urea Nitrogen 16 10 - 20 mg/dL [facility] Creatinine 0.83 0.80 - 1.50 mg/dL [facility] Sodium 138 135 - 145 mmol/L [facility] Potassium 3.9 3.5 - 5.0 mmol/L [facility] Comment: Please note: ??Patients with WBC >100,000 may have falsely elevated Potassium levels. ??For accurate Potassium quantification in these patients send serum separator tube (gold top) for subsequent determinations. ??Contact the Clinical Chemistry Laboratory if there are any questions. Chloride 104 98 - 107 mmol/L [facility] Carbon Dioxide 19(L) 22 - 31 mmol/L [facility] Anion Gap 15 5 - 15 mmol/L [facility] Calcium 9.2 8.5 - 10.5 mg/dL [facility] Est Glomerular Filtration Rate 120 >=60 mL/min/1. 73 m?? [facility] Comment: The eGFR was calculated using the CKD-EPI equation. As with all creatinine based estimates of kidney function, eGFR values calculated with the CKD-EPI equation are not accurate in patients with acute kidney failure, extremes of body mass or the acutely ill. http://[employer]/[facility] eGFR 139 >=60 mL/min/1. 73 m?? [facility] Comment: The eGFR was calculated using the CKD-EPI equation. As with all creatinine based estimates of kidney function, eGFR values calculated with the CKD-EPI equation are not accurate in patients with acute kidney failure, extremes of body mass or the acutely ill. http://[employer]/DHnkf Blood specimen (specimen) 07/15/2018 12:49 PM EST 07/15/2018 12:55 PM EST Narrative Resulting Agency Comment Spec In Lab Christopher Hess MD CHEMISTRY ORDERABLES Performing Organization Address [facility] Co de Phone Number [facility] [place] [address] * Vitamin D, 25-Hydroxy (07/15/2018 12:49 PM EST) Vitamin D Total 25 OH 32 30 - 100 ng/mL [facility] Comment: Deficient <10 ng/mL Insufficient 10 to 29 ng/mL Sufficient 30 to 100 ng/mL Potential Intoxication >100 ng/mL According to the [place] National Osteoporosis Foundation, Vitamin D concentrations >30 ng/mL are sufficient to protect bone health. ??The National Kidney Foundation has similarly stated that patients with Vitamin D concentrations <30ng/mL should be considered to be insufficient or deficient. http://[employer]/nkf-guidelines http://[employer]/nejm-VitD [employer] Vitamin D Immunoassay detects both 25-OH Vitamin D2 and 25-OH Vitamin D3, but only a total Vitamin D concentration is reported. Blood specimen (specimen) 07/15/2018 12:49 PM EST 07/16/2018 7:49 AM EST Narrative Resulting Agency Comment Spec In Lab Christopher Hess MD CHEMISTRY ORDERABLES Performing Organization Address [facility] Co de Phone Number [facility] [place] [address] documented in this encounter Visit Diagnoses Diagnosis Hypopituitarism- Primary Panhypopituitarism documented in this encounter Care Teams Partridge Farmer Relationship Specialty Start Date End Date Lc Venegas PA [address] [place] [address] PCP - General General Internal Medicine 09/03/17 documented as of this encounter
--- OUTSIDE RECORDS SUMMARY | 2024-03-05 15:55 | XMS_ITS | Encounter Summary ---
Author Organization [facility] Address [facility] [place] [address] Care Team Providers Care Marketing Compliance Manager Name Role Phone Lc Venegas Primary Care Provider [phone] Encounter Details Date Type Department Care Team (Late st Contact Info) Description 03/21/2019 2:40 PM EDT Ancillary Procedure [place] [id number] Pedro Colon MD [facility] [place] [address] Social History Tobacco Use Types Packs/Day Years [...] Diagnosis Comments FILM LIBRARY STORAGE ONLY CT HEAD Routine 03/21/2019 2:37 PM EDT documented in this encounter Results * Film Library- Storage Only CT Head (03/21/2019 2:37 PM EDT) Narrative [facility] - 03/21/2019 2:37 PM EDT This exam is auto-finalizing. It's purpose is for storage only. Pedro Colon MD G FILM LIBRARY O RDERABLES DH [place], [place] documented in this encounter Visit Diagnoses Not on filedocumented in this encounter Care Teams Marketing Compliance Manager Relationship Specialty Start Date End Date Lc Venegas PA [address] [place] [address] PCP - General General Internal Medicine 09/03/17 documented as of this encounter
--- OUTSIDE RECORDS SUMMARY | 2024-03-05 15:55 | XMS_ITS | Encounter Summary ---
Author Organization [facility] [place] [address] Care Team Providers Care Crusher And Binder Operator Name Role Phone Lc Venegas Primary Care Provider [phone] Encounter Details Date Type Department Care Team (Late st Contact Info) Description 09/09/2018 Telephone [place] [phone] Thuy Chu RN Social History Tobacco Use [...] Telephone Encounter - Thuy Holman RN - 09/09/2018 11:06 AM EST [place]ala left [facility] [place] call back for instruction because pt is really sick today. R/c and lm for Lala to call back. Rcvd call back from Lala. Pt vomited this AM, not peeing consistently, lips blue, inaccurate temp readings (widely variable). She is taking pt to [facility] ED in [facility] (this call taking place at 11:14) and Lala would like Dr Thomson to call the ED there to consult and advise. Endocrinology Telephone Note: Called [facility] ED MD Spoke with MD there, warned them about his adrenal insufficiency and advised to stress dose if there is any concern whatsoever for hypOtension. If sodium derangements are present, will need to be admitted possibly for DDAVP adjustments. Provided my pager #. Mariola Thomson MD PGY-4 [facility] Endocrinology Fellow Pager #[phone] documented in this encounter Plan of Treatment Not on file documented as of this encounter Visit Diagnoses Not on filedocumented in this encounter Care Teams Crusher And Binder Operator Relationship Specialty Start Date End Date Lc Venegas PA [address] [place] [address] PCP - General General Internal Medicine 09/03/17 documented as of this encounter
--- OUTSIDE RECORDS SUMMARY | 2024-03-05 15:55 | XMS_ITS | Encounter Summary ---
Author Organization [facility] Address [address] [place] [address] Care Team Providers Care Surgical Dressing Maker Name Role Phone Unavailable Primary Care Provider Unavailabl e Encounter Details Date Type Department Care Team (Late st Contact Info) Description 09/17/2004 11:07 EST - 09/17/2004 11:59 EST Hospital Encounter [facility] - Maple conversion [address] [place] [address] Jamie Mckenna MD [address] [facility], [facility] [address] [place] [phone] Discharge Disposition: Home or Self Care Social [...] EST Office Visit [facility] Endocrinology - [facility] [address] [place] [address] Day Littlejohn MD PhD [address] [facility] [address] [place] [address] documented as of this encounter Procedures Procedure Name Priority Date/Time Associated Diagnosis Comments MR ORBITS/FACE/NECK W/WO CONTRAST Routine 09/17/2004 14:45 EST MR HEAD W/WO CONTRAST Routine 09/17/2004 14:45 EST documented in this encounter Results * MR HEAD W/WO CONTRAST (09/17/2004 14:45 EST) Anatomical Region Laterality Modality Other 09/17/2004 14:4 5 EST Impressions 03/02/2009 12:06 EDT IMPRESSION: 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 Differential diagnosis includes unusual appearance of a germ cell tumor or pituitary macroadenoma, although these are much less likely. /guillermo Narrative 03/02/2009 12:06 EDT SO 3 FOR ANE ? DECREASE OF VISION OS-OD OPTIC ATROPY OS>>ODR/O PITUITARY CHEMICAL OPTIC NERVE ALVINA.*PC PLUS/MANAGED MCAID-NO P/A REQUIRED FOR [place] MEDICAID-RLR* MRI OF THE ORBITS: 09/17/04, 1300 MR HEAD WITH AND WITHOUT CONTRAST TECHNIQUE: Sagittal T1 FLAIR, transverse T2 FLAIR, FSE T2, diffusion and gradient echo non-contrast MR images of the brain were performed. Transverse, coronal and sagittal T1 images of the brain were obtained following contrast administration. Transverse and coronal FSE T1, Coronal fat saturated FSE T2, post contrast fat saturated transverse and coronal MR images of the orbits were performed. FINDINGS: MR images of the brain and orbits demonstrate a lobulated mass extending from the sella and displacing the anterior cerebral arteries anteriorly and superiorly and also apparently displacing the optic chiasm superiorly, although the optic chiasm is difficult to localize. The lesion demonstrates bright signal intensity on T2 and T2 FLAIR imaging, which is somewhat heterogeneous. At the left lateral aspect of the lesion, there is also a low T2 and low FLAIR signal component. The lesion demonstrates patchy enhancement, as well as multifocal susceptibility artifact, suggesting calcification. No other lesions are identified. Incidental note is made of a posterior fossa arachnoid cyst. The orbits are within normal limits. Procedure Note Wilder Mustafa MD / Jose Armando Barker MD - 03/02/2009 SO 3 FOR ANE DECREASE OF VISION OS-OD OPTIC ATROPY OS>>ODR/O PITUITARY CHEMICAL OPTIC NERVE ALVINA.*PC PLUS/MANAGED MCAID-NO P/A REQUIRED FOR [place] MEDICAID-RLR* MRI OF THE ORBITS: 09/17/04, 1300 MR HEAD WITH AND WITHOUT CONTRAST TECHNIQUE: Sagittal T1 FLAIR, transverse T2 FLAIR, FSE T2, diffusion and gradient echo non-contrast MR images of the brain were performed. Transverse, coronal and sagittal T1 images of the brain were obtained following contrast administration. Transverse and coronal FSE T1, Coronal fat saturated FSE T2, post contrast fat saturated transverse and coronal MR images of the orbits were performed. FINDINGS: MR images of the brain and orbits demonstrate a lobulated mass extending from the sella and displacing the anterior cerebral arteries anteriorly and superiorly and also apparently displacing the optic chiasm superiorly, although the optic chiasm is difficult to localize. The lesion demonstrates bright signal intensity on T2 and T2 FLAIR imaging, which is somewhat heterogeneous. At the left lateral aspect of the lesion, there is also a low T2 and low FLAIR signal component. The lesion demonstrates patchy enhancement, as well as multifocal susceptibility artifact, suggesting calcification. No other lesions are identified. Incidental note is made of a posterior fossa arachnoid cyst. The orbits are within normal limits. 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 Differential diagnosis includes unusual appearance of a germ cell tumor or pituitary macroadenoma, although these are much less likely. /[facility] Jamie Mckenna [place] [facility] [place] * MR ORBITS/FACE/NECK W/WO CONTRAST (09/17/2004 14:45 EST) Anatomical Region Laterality Modality Other 09/17/2004 14:4 5 EST Narrative 03/02/2009 12:06 EDT SO 3 FOR ANE ? DECREASE OF VISION OS-OD OPTIC ATROPY OS>>ODR/O PITUITARY CHEMICAL OPTIC NERVE ALVINA.*PC PLUS/MANAGED MCAID-NO P/A REQUIRED FOR [place] MEDICAID-RLR* Procedure Note Wilder Mustafa MD / Jose Armando Barker MD - 03/02/2009 SO 3 FOR ANE DECREASE OF VISION OS-OD OPTIC ATROPY OS>>ODR/O PITUITARY CHEMICAL OPTIC NERVE ALVINA.*PC PLUS/MANAGED MCAID-NO P/A REQUIRED FOR [place] MEDICA[place]-RLR* Jamie Mckenna MD IMG MRI ORDERABLES documented in this encounter Visit Diagnoses Not on filedocumented in this encounter
--- OUTSIDE RECORDS SUMMARY | 2024-03-05 15:55 | XMS_ITS | Encounter Summary ---
Author Organization [facility] Address [facility] [place] [address] Care Team Providers Care Deck Builder Name Role Phone Lc Venegas Primary Care Provider [phone] Encounter Details Date Type Department Care Team (Late st Contact Info) Description 09/09/2018 Telephone [place] [address] Mariola Thomson MD [facility] [place] [address] Social History Tobacco Use Types Packs/Day Years [...] Telephone Encounter - Mariola Thomson CW - 09/09/2018 2:11 PM EST Endocrinology Telephone Note: Spoke with ED MD again Miguel Angel was agitated upon arrival. They gave IM versed. Tachycardic but normotensive. 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 If not, admin. They will attempt to admit pt. Mariola Thomson MD PGY-4 [facility] Endocrinology Fellow Pager #[phone] documented in this encounter Plan of Treatment Not on file documented as of this encounter Visit Diagnoses Not on filedocumented in this encounter Care Teams Deck Builder Relationship Specialty Start Date End Date Lc Venegas PA [address] [place] [address] PCP - General General Internal Medicine 09/03/17 documented as of this encounter
--- OUTSIDE RECORDS SUMMARY | 2024-03-05 15:55 | XMS_ITS | Encounter Summary ---
Author Organization [facility] [place] [address] Care Team Providers Care Acls Specialist Name Role Phone Lc Venegas Primary Care Provider [phone] Reason for Visit * Auth/Cert Specialty Diagnoses / Procedures Referred By Nikolayac t Referred To Contact Diagnoses Acetabular fracture Left acetabulum fracture Procedures @OPEN TREATMENT, ACETABULAR FX (WRVU 25.41) Referral ID Status Reason Start Date Expiration Date Visits Re quested Visits Authorized [id number] 1 1 Encounter Details Date Type Department Care Team (Late st Contact Info) Description 10/20/2017 11:43 [place] [address] Asia Mota MD [facility] [place] [address] Marvin Vasquez CRNA Anesthesia Record Procedure Summary Procedure Name Responsible Anesthesiologist Anesthesia Start Time Anesthesia Stop Time CT Asia Mota MD 10/20/17 1143 10/20 1203 Events Date Time Event Comment 10/20/2017 1143 AN Verify 1143 Start 1144 An Start Data 1152 Anesthesia Ready 1203 an stop data 1203 Stop 1452 Meds Name Total IV Lidocaine 20 mg Propofol INF 129.9 mg Lactated Ringers 0 mL * Agents Name O2 Auxiliary Flowmeter 1 * Blood No blood administrations on file. Lines, Drains, and Airways Type Details Placement Removal Incision 09/04/17; 1005; hip; 12/19/17; 0927 09/04/17 1005 by Mohit Hawkins RN 12/19/17 0927 by Adia Clarke RN Incision 09/04/17; 1128; abdomen; 11/17/17 09/04/17 1128 by Mohit Hawkins RN 11/17/17 0000 by Genevieve Lebron RN Incision 09/04/17; 1202; thig h; Duplicate documentation; 11/18/17; 1105 09/04/17 1202 by Mohit Hawkins RN 11/18/17 1105 by Mavis Byers RN (RETIRED) Peripheral IV Line - Single Lumen 10/20/17; 0939; metacarpal vein (top of hand), left; [id number] catheter system; 20 gauge; distraction, intradermal injection, tolerated well; 10/20/17; 1526 10/20/17 0939 by Rickey Cox LPN 10/20/17 1526 by Josefina Flanagan RN documented in this encounter Social History [...] OR Notes * Anesthesia Postprocedure Evaluation - Asia Mota MD - 10/21/2017 7:39 AM EDT [facility] Department of Anesthesiology Post-procedure Note Patient: Miguel Angel Burgos Procedure Summary Date Anesthesia Start Anesthesia Stop Room / Location 10/20/17 1143 1203 [facility] ADULT RADIOLOGY / [facility] [place] Procedure Diagnosis Surgeon Responsible Provider CT (N/A ) (Broken tooth) RESOURCE, ANESTHESIA-Asia Santiago MD All Anesthesia Providers: Anesthesiologist: Asia Mota MD PRESS BUCKER: Echo Lema CRNA Most Recent Vitals: 10/20/172 BP: (!) 122/106 Pulse: Resp: Temp: SpO2: 95% Pain Patient Location: Level of Consciousness: Awake and Alert Pain Management: Satisfactory Analgesia PONV: None Cardiovascular Status: At Baseline Respiratory Status: At Baseline Postoperative Fluid Status: Intravascular HYPOvolemia Possible Anesthetic Complications: NONE apparent at time of evaluation Final Primary Anesthesia Type: MAC (The anesthetic type performed was the same as planned.) Comments: Received minimal sedation for procedure. Woke up in radiology - awake and alert - at baseline. Monitored briefly and then transferred back to his room with the nurses providing care for him. * Anesthesia Preprocedure Evaluation - Asia Mota MD - 10/20/2017 2:50 PM EDT Pre-Anesthesia Evaluation for: Miguel Angel Burgos a 27 y.o. male. Procedure(s): CT Patient Active Problem List Diagnosis ??? S/P ORIF left acetabulum fracture 09/04/2017 Dr. Lance ??? Postoperative anemia due to acute blood loss ??? Diabetes insipidus ??? Adrenal insufficiency ??? Panhypopituitarism ??? Seizure disorder ??? Insomnia ??? Blind ??? 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 Urinary incontinence ??? Hypothyroidism No past medical history on file. Past Surgical History: Procedure Laterality Date ??? PRO OPEN SERVICE SUPPORT REPRESENTATIVE FIX ACETABULAR FX Left 09/04/2017 @OPEN TREATMENT, ACETABULAR FX (WRVU 25.41) performed by Amy Lance MD at [facility] MAIN OR Social History Substance Use Topics ??? Smoking status: Never Smoker ??? Smokeless tobacco: Never Used ??? Alcohol use No History Drug Use No Allergies Allergen Reactions ??? Lopid [Gemfibrozil] Medications: MAR and/or home medications have been reviewed. Physical Exam: Most Recent Vitals: 10/20/17 1217 BP: 118/79 Pulse: Resp: 16 Temp: 36.3 ??C (97.3 ??F) SpO2: There is no height or weight on file to calculate BMI. Height: 177.8 cm (5' 10) Weight: 86.6 kg (191 lb) (weight taken postoperatively using bed scale from unit) Airway Assessment: Mallampati: I TM distance: >3 FB Neck ROM: full Cardiovascular Assessment: Pulmonary Assessment: Dental Assessment: [facility] Assessment: IV access: Peripheral line Anesthesia Plan: ASA 2 MAC, with a(n) intravenous induction 27 year old male with a PMH significant for CVA, severe developmental disability (combative currently), panhypopituitarism, and seizures for CT scan to evaluate possible fractured tooth. Telephone consent obtained from his sister kenneth ARCEO No problems with anesthesia in the past. Plan: MAC Region - Other Informed Consent: Anesthetic plan and risks discussed with legal guardian. Plan discussed with PRESS BUCKER. PAT Staff Note documented in this encounter Miscellaneous Notes * Addendum Note - Asia Mota MD - 10/21/2017 7:40 AM EDT Addendum created 10/21/17 0740 by Asia Mota MD Sign clinical note documented in this encounter Plan of Treatment Not on file documented as of this encounter Visit Diagnoses Not on filedocumented in this encounter Administered Medications Inactive Administered Medications - up to 3 most recent administrations Medication Order MAR Action Action Date Dose Rate Site lactated Ringers infusion CONTINUOUS PRN, Starting on Fri10/20/17 at 1147, Until Fri10/20/17 at 1203, Anesthesia Intra-op New Bag 10/20/2017 11:47 AM EDT lidocaine (PF) (XYLOCAINE) 100 mg/5 mL (2 %) injection PRN, Starting on Fri10/20/17 at 1150, Until Fri10/20/17 at 1203, Anesthesia Intra-op, Routine Given 10/20/2017 11:50 AM EDT 20 mg propofol (DIPRIVAN) infusion CONTINUOUS PRN, Starting on Fri10/20/17 at 1147, Until Fri10/20/17 at 1203, Anesthesia Intra-op, Routine Rate/Dose Change 10/20/2017 11:51 AM EDT 100 mcg/kg/min 52 mL/hr New Bag 10/20/2017 11:47 AM EDT 200 mcg/kg/min 103.9 mL /hr documented in this encounter Care Teams Acls Specialist Relationship Specialty Start Date End Date Guilfoyle, Peter A, PA [address] [place] [address] PCP - General General Internal Medicine 09/03/17 documented as of this encounter
--- OUTSIDE RECORDS SUMMARY | 2024-03-05 15:55 | XMS_ITS | Encounter Summary ---
Author Organization [facility] Address [address] [place] [address] Care Team Providers Care Manager Of Internal Audit Name Role Phone Yan Demarco MD Primary Care Provider [phone] Corin Skinner MD Primary Care Provider Akil Serrano MD Primary Care Provider [phone] Encounter Details Date Type Department Care Team (Late st Contact Info) Description 10/15/2004 Before PRISM Converted Visit (Maple) [facility] - Maple conversion [address] [place] [address] Jose Armando Alejo MD [address] [place] [address] Social History Tobacco Use Types Packs/Day Years Used Date Smoking Tobacco: Never Assessed Sex and Gender Information Value Date Recorded Sex Assigned at Not on file Gender Identity Not on file Sexual Orientation Not on file documented as of this encounter Plan of Treatment Upcoming Encounters Date Type Department Care Team (Late st Contact Info) Description 09/09/2024 10:20 EST Office Visit [facility] Endocrinology - [facility] [address] [place] [address] Day Littlejohn MD PhD [address] [facility] [address] [place] [address] documented as of this encounter Visit Diagnoses Not on filedocumented in this encounter Care Teams Manager Of Internal Audit Relationship Specialty Start Date End Date Yan Demarco MD [address] [place] [address] PCP - General 08/22/09 02/20/10 Corin Skinner MD [address] [place] [phone] PCP - General 10/24/08 08/21/09 Akil Serrano MD [address] [id number] PCP - General 02/21/10 04/16/11 documented as of this encounter
--- OUTSIDE RECORDS SUMMARY | 2024-03-05 15:55 | XMS_ITS | Clinical Summary ---
Author Organization [facility] Address [address] [facility] [place] [address] Care Team Providers Care Whirley Operator Name Role Phone Ren Vaz MD Primary Care Provider [phone] Allergies Active Allergy Reactions Criticality Noted Date Comments Gemfibrozil 09/02/2017 Medications Medication Sig Dispensed Refills Start Date End Date Status acetaminophen (TYLENOL) 325 mg Tablet Take 2 tablets by mouth every 6 hours as needed for Pain. 30 tablet 1 03/11/2018 Active aspirin 81 mg Tablet, Chewable Take 81 mg by mouth daily. 30 tablet 3 03/12/2018 Active atorvastatin (LIPITOR) 40 mg Tablet Take 1 tablet by mouth every evening. 90 tablet 3 03/11/2018 Active calcium carbonate (TUMS) 200 mg calcium (500 mg) Tablet, Chewable Take 1 tablet by mouth nightly. 30 tablet 3 03/11/2018 Active cholecalciferol, Vitamin D3, 1,000 unit Tablet Take 1 tablet by mouth daily. 90 tablet 3 03/12/2018 Active desmopressin (DDAVP) 0.1 mg Tablet Take 1 tablet by mouth every morning. 30 tablet 3 03/12/2018 Active desmopressin (DDAVP) 0.1 mg Tablet Take 1.5 tablets by mouth nightly. 30 tablet 3 03/11/2018 Active hydrocortisone (CORTEF) 20 mg Tablet Take 1 tablet by mouth every morning. 30 tablet 03/12/2018 Active hydrocortisone (CORTEF) 10 mg Tablet Take 1 tablet by mouth Daily at Noon. 30 tablet 3 03/12/2018 Active levothyroxine (SYNTHROID) 75 mcg Tablet Take 3 tablets by mouth every morning. 90 tablet 03/12/2018 Active melatonin 3 mg Tablet Take 3 tablets by mouth nightly. 90 tablet 3 03/11/2018 Active methyl salicylate-menthol (BENGAY) 15-10 % Cream Apply 1 Application topically 2 times daily. 30 g 03/11/2018 Active metoprolol succinate (TOPROL-XL) 25 mg Tablet Sustained Release 24 hr Take 3 tablets by mouth daily. 30 tablet 12 03/12/2018 Active Additional Information Patient not taking.Reported on 11/01/2021 omeprazole (PRILOSEC) 40 mg Capsule, Delayed Release(E.C.) Take 1 capsule by mouth daily. 30 capsule 3 03/11/2018 Active polyethylene glycol (MIRALAX) 17 gram Powder in Packet Take 17 g by mouth daily as needed (If not bowel movement in last 24 hours.). 14 each 03/11/2018 Active QUEtiapine (SEROQUEL) 50 mg Tablet Take 5 tablets by mouth nightly. 30 tablet 3 03/11/2018 Active senna-docusate (PERICOLACE) 8.6-50 mg Tablet Take 2 tablets by mouth 2 times daily. 60 tablet 11 03/11/2018 Active traZODone (DESYREL) 50 mg Tablet Take 1 tablet by mouth nightly. 90 tablet 3 03/11/2018 Active zonisamide (ZONEGRAN) 100 mg Capsule Take 2 capsules by mouth nightly. 30 capsule 3 03/11/2018 Active QUEtiapine (SEROQUEL) 50 mg Tablet Take 1 tablet by mouth 2 times daily as needed. 60 tablet 3 03/11/2018 Active Diaper,Brief, Adult,Disposable Misc Daily 27/01 as needed for incontinence 90 each 3 03/11/2018 Active ferrous gluconate 324 mg (37.5 mg iron) Tablet Take 324 mg by mouth daily. Active baclofen (LIORESAL) 20 mg Tablet 10/09/2021 Active cetirizine (ZyrTEC) 10 mg Tablet 10/09/2021 Active hydrOXYzine (Atarax) 25 mg Tablet 10/03/2021 Active montelukast (Singulair) 10 mg Tablet 08/22/2021 Active Magnesium Gluconate 27 mg magnesium (500 mg) Tablet 09/28/2021 Active mupirocin (Bactroban) 2 % Ointment 09/10/2021 Active pyridoxine, Vitamin B6, (Vitamin B6) 50 mg Tablet 10/22/2021 Active menthol/camphor (BIOFREEZE-ILEX TOP) Apply topically. Active Active Problems Problem Noted Date Diagnosed Date Gastroesophageal reflux disease 07/17/2018 Osteoporosis 07/17/2018 Sleep disorder 07/17/2018 Primary central diabetes insipidus 09/03/2017 Secondary hypothyroidism 09/03/2017 Seizure disorder 09/03/2017 Insomnia 09/03/2017 Blind 09/03/2017 CVA (cerebral vascular accident) 09/03/2017 Overview (09/03/2017): Residual left-sided weakness Urinary incontinence 09/03/2017 Resolved Problems Problem Noted Date Diagnosed Date Resolved Date Hypernatremia 01/24/2018 01/24/2018 Acute urinary retention 12/09/201701/05 Postoperative anemia due to acute blood loss 8 12/09/2017 S/P ORIF left acetabulum fra cture 09/04/2017 Dr. Lance 09/02/2017 03/11/2018 Social History Tobacco Use Types Packs/Day Years [...] Pulse 91 07/15/2018 11:22 AM EST Temperature 36.1 ??C (97 ??F) 03/12/2018 6:25 AM EDT Respiratory Rate 20 03/12/2018 6:25 AM EDT Oxygen Saturation 97% 07/15/2018 11:22 AM EST Inhaled Oxygen Concentration - - Weight 93.4 kg (206 lb) 11/01/2021 11:10 AM EDT Height 165.1 cm (5' 5) 11/01/2021 11:10 AM EDT Body Mass Index 34.28 11/01/2021 11:10 AM EDT Plan of Treatment Health Maintenance Due Date Last Done Comments HIV screen 2008 Hepatitis C Screening 2008 Hepatitis B vaccine (0-59 yrs) (1) 2009 Tdap adult 2009 Tetanus vaccine 2009 Covid-19 Vaccine (2022-24 season) 2023 Influenza (Flu) vaccine (1 o f 1 - Influenza standard series) 03/07/2024 Medical Devices Implanted Type Area Postal Worker Device Identifier Shelf Expiration Date Model / Serial / Lot Screw,Baljinder,Stap,3 .5x80mm ([id number]) (Autoreq) - [id number] Implanted:Qty: 1 on 09/04/2017 by Amy Lance MD at [facility] IMPLANTS Left: Pelvis DO NOT USE [employer] - [id number] / / Screw,Baljinder,Stap,3 .5x34mm ([id number]) ([employer]ore[employer]) - [id number] Implanted:Qty: 1 on 09/04/2017 by Amy Lance MD at [facility] IMPLANTS Left: Pelvis DO NOT USE [employer] - [id number] / / Screw,Baljinder,Stap,3 .5x36mm ([id number]) ([employer]) - [id number] Implanted:Qty: 1 on 09/04/2017 by Amy Lance MD at [facility] IMPLANTS Left: Pelvis DO NOT USE [employer] - [id number] / / Screw,Baljinder,Stap,3 .5x50mm ([id number]) - [id number] Implanted:Qty: 2 on 09/04/2017 by Amy Lance MD at [facility] IMPLANTS Left: Pelvis DO NOT USE [employer] - [id number] / / Screw,Baljinder,Stap,3 .5x55mm ([id number]) - [id number] Implanted:Qty: 3 on 09/04/2017 by Amy Lance MD at [facility] IMPLANTS Left: Pelvis DO NOT USE [employer] - [id number] / / Screw,Baljinder,Stap,3 .5x60mm ([id number]) - [id number] Implanted:Qty: 1 on 09/04/2017 by Amy Lance MD at [facility] IMPLANTS Left: Pelvis DO NOT USE [employer] - [id number] / / Screw,Baljinder,Stap,3 .5x65mm ([id number]) - [id number] Implanted:Qty: 2 on 09/04/2017 by Amy Lance MD at [facility] IMPLANTS Left: Pelvis DO NOT USE [employer] - [id number] / / Suprapectineal Plate (Qls Left) Implanted:Qty: 1 on 09/04/2017 by Amy Lance MD at [facility] Left: Pelvis 07/06/2022 [id number] / / [id number] 3.5mm Cortical Screw Self Tap 45mm Implanted:Qty: 1 on 09/04/2017 by Amy Lance MD at [facility] Left: Pelvis [id number] / / Explanted Type Area Postal Worker Device Identifier Shelf Expiration Date Model / Serial / Lot K-Wire [id number] Explanted:Qty: 1 on 09/04/2017 by Amy Lance MD at [facility] Left: Pelvis [id number] / / [id number] Advance Directives Documents on File Type Date Recorded Patient Program Associate Expl anation Guardianship document 07/14/2018 7:22 AM SE E SCANNED DOCS * Full Code (Latest Code Status on File) Date Activated Date Inactivated Comments 09/03/2017 1:28 AM 03/12/2018 3:26 PM Question Answer Comments Does patient have capacity to make decision: No Code Status decision being made per: Consent of Legal Guardian Name (and relationship if needed): sister Bettina Burgos Care Teams Whirley Operator Relationship Specialty Start Date End Date Ren Vaz MD [facility] [place] [address] PCP - General Family Medicine 06/02/20
--- OUTSIDE RECORDS SUMMARY | 2024-03-05 15:55 | XMS_ITS | Encounter Summary ---
Author Organization [facility] Address [facility] [place] [address] Care Team Providers Care Geopolitics Teacher Name Role Phone Corin Skinner MD Primary Care Provider [phone] Encounter Details Date Type Department Care Team (Latest Contact Info) Description 09/02/2017 12:10 AM EST - 09/02/2017 12:14 AM EST Hospital Encounter [place] [address] Neo Gar MD [facility] [place] [address] Discharge Disposition: Home Social History Tobacco Use [...] FILM LIBRARY STORAGE ONLY CT HEAD Routine 09/02/2017 12:10 AM EST documented in this encounter Results * Film Library- Storage Only CT Head (09/02/2017 12:10 AM EST) Narrative MATEO OSORIO - 09/02/2017 6:29 PM EST This exam is for storage only and is auto-finalizing. Neo Gar MD IMG FILM LIBRARY OR DERABLES JO [place] documented in this encounter Visit Diagnoses Not on filedocumented in this encounter Care Teams Geopolitics Teacher Relationship Specialty Start Date End Date Corin Skinner MD PCP - General 05/29/10 09/02/17 documented as of this encounter
--- OUTSIDE RECORDS SUMMARY | 2024-03-05 15:55 | XMS_ITS | Encounter Summary ---
Author Organization [facility] Address [address] [place] [address] Care Team Providers Care Manager Technical Services Name Role Phone Yan Demarco MD Primary Care Provider Corin Skinner MD Primary Care Provider Akil Serrano MD Primary Care Provider [phone] Encounter Details Date Type Department Care Team (Late st Contact Info) Description 10/15/2004 Before PRISM Converted Visit (Maple) [facility] - Maple conversion [address] [place] [address] Hilton Malloy MD [address] [place] [phone] Social History Tobacco Use Types Packs/Day Years Used Date Smoking Tobacco: Never Assessed Sex and Gender Information Value Date Recorded Sex Assigned at Not on file Gender Identity Not on file Sexual Orientation Not on file documented as of this encounter Procedure Notes * Ricki, Conv Paid Search Manager - 02/13/2011 1256 EDT DATE: 10/12/2004 SURGEON: HILTON MALLOY MD NURSE'S AIDES TEACHER: REYNA OLEA MD, ANCELMO FRIEDMAN MD, HOMAR RAINEY MD 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 Extended pterional/orbital craniotomy for resection of craniopharyngioma 2. Frameless stereotactic guidance ANESTHESIA: General INDICATIONS: The patient is a 14-year-old who had lost vision in the left eye. He presented with anMRI scan which showed a large cystic sellar lesion extending suprasellar anterior to the chiasm compressing both optic nerves and displacing the anterior cerebrals superiorly. He also had panhypopituitarism. He presents after a transsphenoidal drainage of the cyst for an elective resection of the tu mor. FINDINGS: PROCEDURE: After the full risks, benefits and alternatives of the procedure were described to the patients family including , stroke, intracranial/vascular injury, blindness, worsening of pituitary function, memory disturbance, hypothalamic injury, inability to regulate thirst and satiety as well as infection, bleeding requiring a blood transfusion and cosmetic deformity of the forehead or eyeball were described to the patient. The patients mother agreed to the consent and he was taken to the operating room for the above-stated surgical procedure. The patient was taken to the operating room and underwent general endotracheal anesthesia. At the beginning portion of the case, Dr. Alejo scoped the nose to debride it and clean it out. When he finished, we placedthe patient in the [facility] three-point host/hostess head fixation and then registered him with the BrainLAB device. Then the head was prepped and draped in the usual sterile manner for 10 minutes with Hibiclens and alcohol. Then the skin is infiltrated with local anesthetic and a standard pterional incision is made crossing the midline and extending posteriorly. It is all hidden within the hairline. Scalp clips are placed on and then dissection continues down through the temporalis fascia, the temporalis muscle and then across the pericranium. A Deena bar and Bj hooks are usedto retract the flap anteriorly. The flap is protected with a wet sponge. One centimeter of the zygoma is exposed. We also expose the frontal zygomatic suture and about a centimeter past that. Temporal fossa is stripped of the temporalis muscle and this is taken up with a flap in one piece. Then a pe rforator is used to place a perforation in the keyhole and then near the squamosal suture. Then thedura is stripped with a [place] #3 and an air drill is used to turn our craniotomy flap extending from the temporal fossa down through the keyhole up over the frontal bone and then back down into the temporal bone. This is taken off in one piece. Then an orbital osteotomy is made through the orbital bar with a high-speed air drill. The superior portion is also scored with the air drill. The zygoma is scored as well as the lateral portions of the orbit. The wing of the sphenoid is drilled down flush. Then the orbital bar is removed as a separate piece and set aside. Then the dura is opened after the patient receives mannitol. The dura is opened in a curvilinear fashion from the low temporalfossa up over to the frontal dura. This is retracted forward. At this point, the operating microscope is brought in and a distal sylvian fissure approach is used. The arachnoid is opened with a Zuni blade and the sylvian fissure is split. The Pickard retractor is then used to retract the frontal lobe superiorly and the temporal lobe posteriorly and inferiorly. We identify the sphenotemporal veins and these are coagulated and cut. Then we work down into the fissure and identify the carotid artery and the optic nerve on the right side. The arachnoid around these are opened. Seen in the optical carotid triangle is the tumor. It extends from middle temporal fossas bilaterally and then posterior up into the hypothalamus and anterior with a portion of the tumor extending up into the right gyrus rectus. The gyrus rectus is opened with bipolar cautery and a yellow calcified lesion is encount ered. This is opened and a similar fluid as from the transsphenoidal drainage is seen with cholesterol crystals in it. A portion of this tumor is sent fro frozen pathology and returns consistent withcholesterol clefts. The bipolar cautery is used to work around the edge of the tumor. The anterior cerebral artery is identified as well as the posterior communicating artery, the ipsilateral and contralateral carotid. The contralateral optic nerve is also identified and appears fairly atretic. Thechiasm is also identified. At this point, we dissect down laterally to the tumor down towards the takeoff of the left third nerve. We identify the third nerve and protect it. Then we work up posterior superioly towards the hypothalamus. There is a nice plane in this area and it is easily divided from the hypothalamus. Then next we work under the right optic nerve with care being taken to minimally manipulate or coagulate in and around the right optic nerve. The dorsal portion of thetumor is stuck to the inferior portion of the optic nerve and this is taken down both sharply and bluntly with care being taken to place no traction on the optic nerve. This is freed up and then as well as posteriorly we are able to get a #8 Rhoton dissector superioly up around the plane of the tumor and deliver it forward. We work circumferentially around the tumor with care being taken to prevent neurovascul ar structures. The tumor is then opened up and some small amount of cyst fluid is aspirated withcare being taken not to allow it to spill into the subarachnoid space. Then the tumor is debulked internally with the biopsy forceps and this is sent for permanent specimen. Then we work down the middle of the tumor and remove the left side portion of the tumor. This is sent for permanence as well. Thetumor is very tough, very fibrotic and difficult to cut even with microscissors and Dandy scissors.Then we work laterally to the portion of the tumor under the right carotid artery as well as the right optic nerve. There is a small adhesion medial to this which with minimal traction causes some brisk arterial bleeding. Then at this point, it is briefly packed and this gives us control of the bleeding. The patient is given 12 mg of intravenous adenosine and an aneurysm clip is placed over a small rent in the posterior cerebral artery. Care is taken not to encircle the basilar. Just a small portion of where a presumed perforating vessel or more likely an atretic P1 takes off from the basilar. A single small curved aneurysm clip is placed over the hole and this stops the bleeding. We inspect in and around the artery and ensure that the parent artery is patent. There is also good flow noticed in the sylvian fissure out of the middle cerebral artery branches and also the anterior cerebralartery. The anterior cerebral artery of note on the right is clearly atretic. This was noticed on his initial exposure. The right internal carotid artery did have a mild amount of spasm which some papaverine was placed onto a cottonoid pledget and then placed over the carotid artery with good response. Then next, the remaining portions of the connection of the tumor laterally on the right side are taken down with bipolar cautery and then sharp scissors. We are able to grossly excise the capsuleon the tumor from what we can see under the microscope. We did explore up and around the gyrus rectus on the right side and did not see any obvious tumor left there. At this point, the wound is copiously irrigated. It is extremely dry. Then the retractors are removed. The frontal and temporal lobe are inspected for any peel bleeding. There is one small area on the inferior frontal lobe which is coagulated. Then the retractors are removed and the dura is reapproximated with a piece of DuraGen over the dura. Then the supraorbital bar and craniotomy flap are placed back on in anatomical alignment with titanium miniplates. Then a medium Hemovac is placed over the bone flap in the subgaleal space and tunneled up through a separate stab incision. Then the wound is once again copiously irrigatedwith antibiotic solution, scalp clips are removed and then the galea is closed with inverted 2-0 Vicryls and then an absorbable stitch on the skin. The patient is removed from the [facility]vue headholder. The pupils appear 3 mm and minimally are active bilaterally. He does have some slow emergence fromanesthetic. He is extubated and subsequently re- intubated after he is brought down to CT for a headCT. The head CT showed no obvious intracranial hemorrhage or any stroke. He was intubated electively and then taken back up to the surgical intensive care unit in stable condition. Sponge and needle counts were correct x2. I was present for the entire portion of the case. Dr. Olea assisted in the opening and initial dissection and Dr. Friedman helped with the final removal of some portions of the tumor. ESTIMATED BLOOD LOSS: 1700 cc. FLUIDS: SPECIMENS: Portion of tumor. 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 d - 10/12/2004 22:45:39 - HILTNO PETERS t - 10/15/2004 10:37:52 - [employer] Voice ID - [id number] Document ID - [id number] cc: HOMAR DIAZ MD, REFERRING PHYSICIAN HILTON MALLOY MD, ATTENDING PHYSICIAN This document has been electronically signed by HILTON MALLOY MD on 10/16/2004 16:06:32. documented in this encounter Plan of Treatment Upcoming Encounters Date Type Department Care Team (Late st Contact Info) Description 09/09/2024 10:20 EST Office Visit [facility] Endocrinology - [address] [address] Day Littlejohn MD PhD [address] [facility] [address] [place] [address] documented as of this encounter Visit Diagnoses Not on filedocumented in this encounter Care Teams Manager Technical Services Relationship Specialty Start Date End Date Yan Demarco MD [address] [place] [address] PCP - General 08/22/09 02/20/10 Corin Skinner MD [address] [address] PCP - General 10/24/08 08/21/09 Akil Serrano MD [address] [facility] [address] [place], [place] [address] PCP - General 02/21/10 04/16/11 documented as of this encounter
--- OUTSIDE RECORDS SUMMARY | 2024-03-05 15:55 | XMS_ITS | Encounter Summary ---
[place] [address] Care Team Providers Care Winder Helper Name Role Phone Lc Venegas Primary Care Provider [phone] Encounter Details Date Type Department Care Team (Late st Contact Info) Description 06/11/2018 Telephone [place] [id number] Mariola Gipson Social History Tobacco Use Types Packs/Day Years [...] on filedocumented in this encounter Care Teams Winder Helper Relationship Specialty Start Date End Date Lc Venegas PA [address] [place] [address] PCP - General General Internal Medicine 09/03/17 documented as of this encounter
--- OUTSIDE RECORDS SUMMARY | 2024-03-05 15:55 | XMS_ITS | Encounter Summary ---
Author Organization [facility] [place] [address] Care Team Providers Care Cartridge Feeder Name Role Phone Lc Venegas Primary Care Provider [phone] Encounter Details Date Type Department Care Team (Late st Contact Info) Description 09/03/2017 Orders [place] [address] Tobias Sotomayor MD [facility] [place] [address] Social History Tobacco Use Types Packs/Day Years [...] on filedocumented in this encounter Care Teams Cartridge Feeder Relationship Specialty Start Date End Date Lc Venegas PA [address] [place] [address] PCP - General General Internal Medicine 09/03/17 documented as of this encounter
[2024-03-05 16:08] LABS: Abs Immature Grans 0.03 10^3/uL (0.0-0.06); Absolute Basophil Count 0.03 10^3/uL (0.0-0.2); Absolute Eosinophil Count 0.13 10^3/uL (0.0-0.7); Absolute Lymphocyte Count 1.76 10^3/uL (1.2-3.4); Absolute Monocyte Count 0.65 10^3/uL (0.1-0.8); Absolute Neutrophil Count 4.37 10^3/uL (1.2-6.7); Basophils % 0.4 %; Eosinophils % 1.9 %; HCT 40.3 % (40.0-50.0); Immature Grans % 0.4 %; Lymphocytes % 25.3 %; MCH 24.9 pg (27.0-33.0); MCHC 32.3 % (32.0-36.0); MCV 77 fL (80-95); MPV 10.4 fL (8.0-11.0); Monocytes % 9.3 %; Neutrophils % 62.7 %; Platelet Count 237 10^3/uL (130-400); RBC 5.23 10^6/uL (4.36-5.78); RDW 15.7 % (11.8-14.1); RDW-SD 43.2 fL; WBC 6.97 10^3/uL (4.4-10.8)
[2024-03-05 16:10] LABS: ESR 2 mm/hr (0-15)
[2024-03-05 16:32] LABS: ALT 67 U/L (16-63); AST 29 U/L (15-37); Albumin 4.1 g/dL (3.4-5.0); Alkaline Phosphatase 124 U/L (46-116); BUN 24 mg/dL (7-18); Bilirubin, Total 0.22 mg/dL (0.2-1.0); C-Reactive Protein 0.52 mg/dL (<or=0.5); CREATININE 1.1 mg/dL (0.70-1.30); Calcium 9.3 mg/dL (8.5-10.1); Chloride 106 mmol/L (98-107); Glucose 88 mg/dL (74-106); Potassium 3.7 mmol/L (3.5-5.1); Sodium 142 mmol/L (136-145); TSH (W/Ref FT4) < 0.01 uIU/mL (0.36-3.74); Total Protein 7.3 g/dL (6.4-8.2)
[2024-03-05 17:00] LABS: FREE T4 1.23 ng/dL (0.76-1.46)
[2024-03-05 17:18] LABS: Calculated LDL 28 mg/dL (<100); Cholesterol 91 mg/dL (<200); HDL Cholesterol 40 mg/dL (40-60); Triglyceride 117 mg/dL (<150)
== END 2024-03-05 15:41 | disposition home or self-care (01) ==
LOC: NCHCN 15:40
PROVIDERS: PCP Student in an Organized Health Care Education/Training Program; Visit Provider Student in an Organized Health Care Education/Training Program
DX: R45.1 Restlessness and agitation (principal); E03.9 Hypothyroidism, unspecified; Z13.220 Encounter for screening for lipoid disorders
CPT/HCPCS: 80053; 80061; 85652; 84439; 84443; 85025; 86140

== ENCOUNTER 2024-03-10 03:08 | Outpatient (CLI) | payer MEDICAID, SELFPAY ==
[2024-03-10 17:01] LABS: Anion Gap 8.4 mmol/L (3-11); BUN 17 mg/dL (7-18); CO2 27.6 mmol/L (21.0-32.0); CREATININE 0.9 mg/dL (0.70-1.30); Calcium 9.2 mg/dL (8.5-10.1); Chloride 104 mmol/L (98-107); Estimated GFR 115.65 (mL/min/1.73m2); Glucose 86 mg/dL (74-106); Potassium 4.1 mmol/L (3.5-5.1); Sodium 140 mmol/L (136-145)
[2024-03-10 18:00] LABS: Bilirubin Negative (Negative); Blood Negative (Negative); Clarity Clear (Clear); Glucose Negative (Negative); Ketones Negative (Negative); Leukocyte Esterase Negative (Negative); Nitrite Negative (Negative); Urobilinogen 0.2 mg/dL (Up to 0.2); pH 5.5 (5-8)
[2024-03-13 14:17] LABS: Free Thyroxine Index 9.8 mcg/dL (4.8 - 12.7); Thyroxine Total 10.8 mcg/dL (4.5 - 11.7)
== END 2024-03-10 03:09 | disposition home or self-care (01) ==
LOC: LBO 03:09
PROVIDERS: PCP Student in an Organized Health Care Education/Training Program; Visit Provider Internal Medicine Endocrinology, Diabetes & Metabolism
DX: E23.0 Hypopituitarism (principal); R35.0 Frequency of micturition
CPT/HCPCS: 80048; 81003; 84479

== ENCOUNTER 2024-06-13 20:38 | Emergency (ER) | payer MEDICAID, SELFPAY ==
[2024-06-13] VITALS (25 sets, daily range): BP systolic 128–151; BP diastolic 58–121; PULSE 73–119; RESP 15–27; TEMP 35.9; O2SAT 90–100
--- NOTE | 2024-06-13 20:30 | DI.CT_ITS ---
Exam(s) CT HEAD WO EXAM: CT HEAD WO CLINICAL HISTORY: Breakthrough sz. TECHNIQUE: Imaging Protocol: Axial computed tomography images with coronal and sagittal reformatted images were created and reviewed COMPARISON: CT CT HEAD WO from 10/03/2023 FINDINGS: Again noted is evidence of prior right frontotemporal craniotomy. There are no skull fractures. The re is streak artifact aneurysm clip in the right anterior skull base which obscures adjacent brain ti ssue. There is no fluid in the visualized paranasal sinuses. There is no evidence of intracranial hemorrhage. Large area encephalomalacia in the right fronto tem poral region again noted, unchanged, and again noted is the associated ex vacuo dilatation of the fro ntal horn of the right lateral ventricle. Also unchanged lacunar infarcts in the anterior aspect of both thalami again noted. In the right middle cranial fossa there is a subtle suggestion of a roundish mass density measuring a pproximately 3 x 2.8 x 2.9 cm which may be significant but difficult to assess without IV contrast. IMPRESSION: 1. No evidence of acute hemorrhage in this patient who has aneurysm clip and unchanged encephalomalac ia in the right frontal and temporal lobes. 2. There is a suggestion of a 3 x 2.8 x 2.9 cm hypodense masslike finding in the medial half of the r ight middle cranial fossa, partially obscured by artifact but possibly increased in size from the era or study of September 2028.. Recommend follow-up contrast infused MRI study to determine if this is neop lastic, aneurysm, or other pathology. Study 1st read by [facility]. RADIATION DOSE DELIVERED: 865.98mGy.cm Total DLP DATA REPOSITORY: All CT scans at this facility are submitted to the National Radiology Data Registry (NRDR) Dose Index Registry (DIR) with the [employer] (A[employer]). RADIATION OPTIMIZATION: All CT scans at this facility use at least one of these dose optimization te chniques: automated exposure control; mA and/or kV adjustment per patient size (includes targeted exa ms where dose is matched to clinical indication); or iterative reconstruction.
--- NOTE | 2024-06-13 20:45 | ED.GENADUL_ITS ---
Discharge Plan Disposition Patient Disposition: Transfer-Acute Inpatient Care Specific Acute Inpt Facility: [facility] Condition: Fair Discharge Details Clinical Impression: Hyponatremia, Diabetes insipidus, Panhypopituitarism, TBI (traumatic brain injury), Seizure, Cortical blindness, Intracranial mass Primary Care Provider: Jimbo More ED Provider: Ladonna Winchester Home Meds and New Rx's Prescriptions: No Action acetylcysteine 600 mg capsule 600 mg PO BID cetirizine 10 mg tablet 20 mg PO DAILY PRN hydroxyzine HCl 25 mg tablet 25 mg PO TID PRN levothyroxine 200 mcg capsule 200 mcg PO DAILY magnesium gluconate 27 mg magnesium (500 mg) tablet 27 mg PO DAILY melatonin-lemon balm leaf extr 10-1 mg tablet 1 tab PO HS prazosin 2 mg capsule 2 mg PO QHS pyridoxine (vitamin B6) 50 mg tablet 50 mg PO DAILY quetiapine 150 mg tablet extended release 24 hr 150 mg PO DAILY polyethylene glycol 3350 17 gram powder in packet 17 gm PO DAILY PRN bisacodyl 10 mg suppository 10 mg [place] DAILY PRN aspirin 81 mg tablet 81 mg PO DAILY omeprazole 40 mg capsule,delayed release(DR/EC) 40 mg PO DAILY zonisamide 100 mg capsule 400 mg PO QPM Qty: 120 0RF desmopressin 0.1 mg tablet 0.15 mg PO QNOON atorvastatin 40 mg Tablet 40 mg PO DAILY quetiapine [Seroquel] 200 mg Tablet 200 mg PO PRN PRN desmopressin 0.1 mg Tablet 0.1 mg PO QAM ferrous gluconate 324 mg (38 mg iron) Tablet 324 mg PO DAILY baclofen 20 mg Tablet 20 mg PO TID hydrocortisone 10 mg tablet 10 mg PO QNOON Qty: 0 0RF Rx Instructions: Resume on 03/30/19 hydrocortisone [Cortef] 10 MG tablet 20 mg PO QAM Qty: 0 0RF Rx Instructions: resume on 03/30/19 clonazepam 2 mg Tablet 2 mg PO Q6H PRN PRN montelukast 10 mg Tablet 10 mg PO DAILY HPI General Mode of arrival: EMS . Date/Time Provider Initiated Documentation: 06/13/24 20:39 . Limitations to Documentation: altered mental status . Information obtained by: family, EMS and old records reviewed . HPI Narrative: HPI: This is a 33-year-old male patient with a past medical history significant for diabetes insipidus, epilepsy, blindness, TBI, who is presenting for evaluation of a breakthrough seizure. History is obtained from the manager strategic development of the [facility] at which the patient resides. The patient had a seizure lasting in between 1 and 2 minutes today, described as whole body tonic-clonic activity. The patient has not had a seizure in some time, has not had any recent adjustments to his medication, and has not missed any doses of medications, though he has not had his nighttime medicines yet with the exception of his Se roquel. The patient has not had any recent fevers or chills, has not had any illnesses or injuries, has reached his allotted daily fluid for his diabetes insipidus management. The patient was transported by EMS, was quite verbally upset and yelling during interventions, they did note a blood glucose that was appropriate, and a normal SpO2. The patient did not have any further seizure activity and seemed to have improvement in his mental status and responded to his name and answered simple questions by the time he arrived at the emergency department. He did not receive any medications prior to arrival at our facility. Exam: Gen: Awake, appears to be improving from a postictal stand point, quite distressed with interventions or contact HEENT: Non-icteric sclera, pupils nonreactive and dilated to 5 mm, baseline per staff for patient's blindness. The patient does have a laceration to the tongue, hemostatic Neck: Supple Lungs: No apparent respiratory distress, normal respiratory effort. Lungs clear and equal CV: Appears well perfused, heart with regular rate and rhythm, strong distal pulses Abdomen: Non-distended, soft, nontender MSK: Moves 4 extremities without apparent limitation in ROM Skin: Visualized skin without rashes, cyanosis. Neuro: Baseline left-sided hemiparesis, no apparent changes from baseline. Awake, responds to name, answers no to simple questions. Slightly below baseline per staff member MDM: This is a 33-year-old male patient presenting for evaluation of breakthrough seizure. My differential includes but is not limited to intracranial abnormality including hemorrhage, mass, stroke/CVA was also considered that the patient has no significant new deficits. I also considered metabolic electrolyte derangements, especially sodium abnormalities in the setting of his diabetes insipidus. I considered kidney injury, liver disease, and infections including urinary tract infections. I considered missed medications and subtherapeutic medication levels. We will obtain laboratory studies to include CBC, CMP, magnesium, and urinalysis. I will send a zonisamide level for guidance of outpatient therapies. We will obtain a CT head when the patient is calm to evaluate for abnormalities. The patient has no active seizure activity at this time, and I do not see an indication for benzodiazepine administration, but will provide the patient with his nighttime dosing of trazodone and baclofen to avoid withdrawal syndromes and help the patient to be calm in this new environment. ED Course: I reviewed the patient's laboratory studies, which are most notable for a sodium of 121, significantly below his baseline and is significantly lower than expected for this patient's history of diabetes insipidus and his highly dilute urine. A repeat confirmatory laboratory study was sent prior to intervention. He has no leukocytosis, has a stable anemia and no thrombocytopenia. His chemistry panel otherwise demonstrates no significant abnormalities, kidney dysfunction, or evidence of liver disease. He does have a mildly low glucose at 60, was able to tolerate some juice by p.o.. Urinalysis, while dilute, is without evidence of infection. Repeat sodium 122, while awaiting this value the patient also had a second episode of seizure activity, 30 seconds of tonic-clonic activity, and was provided with 2 mg of Ativan. In collaboration with the [facility] critical care team, we also provided him with the standard 150 mL of 3% saline. The patient CT scan is significant for a large hypoattenuating mass in the right middle cranial fossa, per radiology concerning for enlarging neoplasm given its increase in size since prior examinations. This mass was not specifically noted on the CT obtained on 10/03/2023, but is visible in retrospect on my review of that study. He also has baseline encephalomalacia consistent with his prior aneurysm clipping, and no evidence of midline shift or intracranial hemorrhage. Of note, we did make several attempts to reach out to the patient's guardian, his sister Bettina. The staff of [facility] also did so, and sent several staff members to her home to try to get in contact with her. We were ultimately able to contact her and she gave us consent to transport the patient to the track. The [facility] critical care team also recommended stress dose hydrocortisone, 100 mg, and states that if the patient was correcting too quickly, he should be provided with subcutaneous DDAVP. Since this patient will be transported by medics prior to our ability to recheck the sodium, and because the risk of overcorrection outweighs the risks of under correction, I empirically provided this patient with 1 mcg of DDAVP prior to transport. The patient was transported by [facility] to [facility] for definitive management of his condition. Remained hemodynamically appropriate and protected his airway throughout his time under my care. Following transport, repeat sodium immediately after completion of the 3% noted to be 125. Ladonna Winchester MD Related Data Home Medications ?Medication ?Instructions ?Recorded ?Confirmed atorvastatin 40 mg tablet 40 mg PO DAILY 05/08/18 06/13/24 desmopressin 0.1 mg tablet 0.1 mg PO QAM 09/09/18 06/13/24 ferrous gluconate 324 mg (38 mg 324 mg PO DAILY 09/09/18 06/13/24 iron) tablet quetiapine 200 mg tablet (Seroquel) 200 mg PO PRN PRN 09/09/18 06/13/24 baclofen 20 mg tablet 20 mg PO TID 03/24/19 06/13/24 hydrocortisone 10 mg tablet 10 mg PO QNOON #0 tabs 03/28/19 06/13/24 hydrocortisone 10 mg tablet 20 mg (2 x 10 mg) PO QAM #0 tabs 03/28/19 06/13/24 (Cortef) aspirin 81 mg tablet 81 mg PO DAILY 08/23/19 06/13/24 bisacodyl 10 mg rectal suppository 10 mg [place] DAILY PRN 08/23/19 06/13/24 omeprazole 40 mg capsule,delayed 40 mg PO DAILY 08/23/19 06/13/24 release polyethylene glycol 3350 17 gram 17 gm PO DAILY PRN 08/23/19 06/13/24 oral powder packet desmopressin 0.1 mg tablet 0.15 mg PO QNOON 10/06/19 06/13/24 clonazepam 2 mg tablet 2 mg PO Q6H PRN PRN 11/17/20 06/13/24 montelukast 10 mg tablet 10 mg PO DAILY 11/17/20 06/13/24 zonisamide 100 mg capsule 400 mg (4 x 100 mg) PO QPM #120 12/13/20 06/13/24 caps acetylcysteine 600 mg capsule 600 mg PO BID 02/19/24 06/13/24 cetirizine 10 mg tablet 20 mg PO DAILY PRN 02/19/24 06/13/24 hydroxyzine HCl 25 mg tablet 25 mg PO TID PRN 02/19/24 06/13/24 levothyroxine 200 mcg capsule 200 mcg PO DAILY 02/19/24 06/13/24 magnesium gluconate 27 mg 27 mg PO DAILY 02/19/24 06/13/24 magnesium (500 mg) tablet melatonin 10 mg-lemon balm leaf 1 tab PO HS 02/19/24 06/13/24 extract 1 mg tablet prazosin 2 mg capsule 2 mg PO QHS 02/19/24 06/13/24 pyridoxine (vitamin B6) 50 mg 50 mg PO DAILY 02/19/24 06/13/24 tablet quetiapine 150 mg tablet,extended 150 mg PO DAILY 02/19/24 06/13/24 release 24 hr Previous Rx's ?Medication ?Instructions ?Recorded hydrocortisone 10 mg tablet 10 mg PO QNOON #0 tabs 03/28/19 hydrocortisone 10 mg tablet 20 mg (2 x 10 mg) PO QAM #0 tabs 03/28/19 (Cortef) zonisamide 100 mg capsule 400 mg (4 x 100 mg) PO QPM #120 12/13/20 caps Allergies Allergy/AdvReac Type Severity Reaction Status Date / Time gemfibrozil (From [facility]) AdvReac Unknown Unverified 11/17/20 22:09 General Stated Complaint: Seizure KWASI: 3 Course Vital Signs Vital signs: Vital Signs Temperature 35.9 C L 06/13/24 20:32 Pulse 90 06/13/24 20:32 Respiratory Rate 15 06/13/24 20:32 Blood Pressure 151/121 H 06/13/24 20:32 Pulse Oximetry 98 06/13/24 20:32 Temperature 35.9 C L 06/13/24 20:32 Temperature Source Tympanic 06/13/24 20:32 Pulse 90 06/13/24 20:32 Respiratory Rate 15 06/13/24 20:32 Respiratory Effort Normal 06/13/24 20:41 Blood Pressure 151/121 H 06/13/24 20:32 Blood Pressure Position Sitting 06/13/24 20:32 Pulse Oximetry 98 12/08/24 20:32 Oxygen Delivery Method Room Air 06/13/24 20:32 Oxygen Flow Rate 0 06/13/24 20:32 Medical Decision Making Quality:SDOH Health Related Social Needs: No Data to Display Critical Care Time Critical Care Time Critical Care Time: Yes Total Critical Care Time: 60 Attestation: Upon my evaluation, this patient had a high probability of imminent or life- threatening deterioration due to severe hyponatremia causing seizures, which required my direct attention, intervention, and personal management. I have personally provided 60 minutes of critical care time exclusive of time spent on separately billable procedures. Time includes review of laboratory data, radiology results, discussion with consultants, and monitoring for potential decompensation. Interventions were performed as documented above. Ladonna Winchester MD PFSH All Active Problems (Updated 06/13/24 @ 23:00 by Ladonna Winchester MD) Intracranial mass (Acute) Seizure (Acute) Hyponatremia (Acute) Avulsion of nail (Acute) Nonspecific paroxysmal spell (Acute) Focal epilepsy (Acute) Otitis media (Acute) Urinary retention with incomplete bladder emptying (Acute) Chemical gastritis (Acute) On beta gui at home (Acute) Gastric outlet obstruction (Acute) Vomiting (Acute) Gastroenteritis (Acute) Intractable diarrhea (Acute) Discharge planning issues (Acute) Wheezing (Chronic) DVT prophylaxis (Acute) 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Chronic) Diabetes insipidus (Chronic) Cortical blindness (Chronic) Constipation (Chronic) Leg cramps (Chronic) Insomnia (Chronic) GERD (gastroesophageal reflux disease) (Chronic) Seizures (Chronic) TBI (traumatic brain injury) (Chronic) Medical History (Updated 06/13/24 @ 23:00 by Ladonna Winchester MD) Chronic excoriation Furuncle of left axilla Hx of benign neoplasm of 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 osteoporosis Contracture of joint Pruritic disorder Steatosis of liver Gastritis Optic atrophy Hemiplegia Speech and language disorder Trichotillomania Restlessness and agitation Anemia, iron deficiency Obesity Hypo-osmolality and hyponatremia Diabetes Hypopituitarism Hypothyroidism History of pica 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 Cortical blindness Mood disorder Osteoporosis Hypertriglyceridemia Urinary incontinence H/O secondary hypogonadism Hemiparesis, left History of craniopharyngioma Poor dentition Hypocalcemia Elevated liver enzymes Urinary retention Hx of fracture of pelvis 2017 s/s seizure CVA (cerebral vascular accident) post-surgical Surgical History H/O brain surgery right craniotomy for craniopharyngioma Family History (Updated 01/13/24 @ 08:25 by Veronica Turner) Mother Renal failure syndrome Social History Smoking/Tobacco Use Status: Never Smoking risk assessment performed?: Yes Alcohol Intake: current Alcohol type: other Drug use: Never Substance use type: does not use Household members: caregiver current occupation: Disabled Do you feel safe at home: Yes Do you feel safe in your relationship?: Yes
[2024-06-13 20:49] LABS: Abs Immature Grans 0.13 10^3/uL (0.0-0.06); Absolute Basophil Count 0.02 10^3/uL (0.0-0.2); Absolute Eosinophil Count 0.07 10^3/uL (0.0-0.7); Absolute Lymphocyte Count 1.77 10^3/uL (1.2-3.4); Absolute Monocyte Count 0.54 10^3/uL (0.1-0.8); Absolute Neutrophil Count 4.13 10^3/uL (1.2-6.7); Basophils % 0.3 %; Eosinophils % 1.1 %; HCT 38.5 % (40.0-50.0); HGB 12.9 g/dL (13.5-17.5); Lymphocytes % 26.6 %; MCH 24.6 pg (27.0-33.0); MCHC 33.5 % (32.0-36.0); MCV 73 fL (80-95); MPV 8.9 fL (8.0-11.0); Monocytes % 8.1 %; Neutrophils % 61.9 %; Platelet Count 260 10^3/uL (130-400); RBC 5.25 10^6/uL (4.36-5.78); RDW 13.6 % (11.8-14.1); RDW-SD 36.1 fL; WBC 6.66 10^3/uL (4.4-10.8)
[2024-06-13 20:51] LABS: Bilirubin Negative (Negative); Blood Negative (Negative); Clarity Clear (Clear); Glucose Negative (Negative); Ketones Negative (Negative); Leukocyte Esterase Negative (Negative); Nitrite Negative (Negative); Specific Gravity <= 1.005 (1.005-1.025); Urobilinogen 0.2 mg/dL (Up to 0.2)
[2024-06-13] MEDS: Baclofen 10 MG TAB 20 MG PO (20:56)
[2024-06-13] MEDS: traZODone 100 MG TAB PO (20:56)
[2024-06-13 20:59] LABS: INR 1.1 (0.9-1.1)
[2024-06-13 21:03] LABS: Diff Comment RBC Morph Reviewed; Microcytosis 1+
[2024-06-13 21:04] LABS: ALT 59 U/L (16-63); AST 23 U/L (15-37); Albumin 4.1 g/dL (3.4-5.0); Alkaline Phosphatase 132 U/L (46-116); Anion Gap 12.4 mmol/L (3-11); BUN 15 mg/dL (7-18); Bilirubin, Total 0.59 mg/dL (0.2-1.0); CO2 22.6 mmol/L (21.0-32.0); CREATININE 1.1 mg/dL (0.70-1.30); Calcium 8.2 mg/dL (8.5-10.1); Chloride 86 mmol/L (98-107); Glucose 60 mg/dL (74-106); Magnesium 2.1 mg/dL (1.8-2.4); Potassium 4.2 mmol/L (3.5-5.1); Total Protein 8.1 g/dL (6.4-8.2)
[2024-06-13 21:11] LABS: Sodium 121 mmol/L (136-145)
[2024-06-13] MEDS: LORazepam 2 MG/ML VIAL IVP (22:10)
--- NOTE | 2024-06-13 22:22 | DI.VRAD_ITS ---
PROCEDURE INFORMATION: Exam: CT Head Without Contrast Exam date and time: 06/13/2024 9:37 PM Age: 33 years old Clinical indication: Other: Breakthrough sz TECHNIQUE: Imaging protocol: Computed tomography of the head without contrast. COMPARISON: CT HEAD WO 10/03/2023 8:38 AM FINDINGS: Brain: There is a 3.1 cm x 3.0 cm x 2.8 cm relatively hypoattenuating masslike finding in the medial aspect of the right middle cranial fossa on images 49 of series 2 and 36 of series 5. This finding measured 2.6 cm x 2.7 cm x 2.3 cm on the comparison exam from October 02. There is a large region of parenchymal encephalomalacia involving the right frontal and temporal lobe subjacent to the cranial plate, grossly stable. Otherwise preserved. No acute intracranial hemorrhage or midline shift is seen. There is no acute extra-axial collection. Cerebral ventricles: There is ex vacuo dilatation of the anterior horn of the right lateral ventricle, as seen on the prior exam. There is no hydrocephalus. Focal prominence of the extra-axial space along the posterior midline of the posterior fossa presumably represents prominence of the cisterna magna. Paranasal sinuses: There is patchy mucoperiosteal thickening in the paranasal sinuses. There appears to have been prior sinus surgery with ethmoidectomy defects, a middle turbinectomy on the right, and a medial antrostomy on the right. Correlation with surgical history is recommended. No air-fluid levels are seen. Mastoid air cells: The mastoid air cells appear well-aerated. Auditory system: The middle ear cavities appear clear. Orbital cavities: The globes and intraorbital structures appear grossly intact. Bones: There is an old right frontotemporal craniotomy defect. No acute skull fracture is seen. There is streak artifact from an aneurysm clip at the right anterior skull base. The adjacent brain is obscured. Soft tissues: No significant scalp lesion is seen. IMPRESSION: 1. 3.1 cm x 3.0 cm x 2.8 cm round relatively hypoattenuating masslike finding in the medial aspect of the right middle cranial fossa, partially obscured by artifact and not well evaluated but increased in size since the comparison exam from October 03, 2023. Further evaluation by contrast-enhanced MRI is recommended. An enlarging neoplasm would be considered primarily; however, an unusual large aneurysm is not excluded by the CT exam. 2. No acute intracranial hemorrhage or midline shift. 3. Prior aneurysm clipping with encephalomalacia in the right frontal and temporal lobes. Dictated and Authenticated by: Jaime Ceballos MD. Ordering:LANCE Ortega MD
[2024-06-13 22:25] LABS: Sodium 122 mmol/L (136-145)
[2024-06-13] MEDS: Hydrocortisone SOD SUC. 100 MG VIAL IVP (23:00)
[2024-06-13] MEDS: SODIUM CHLORIDE 3% 150 ML 450 ML IV (23:00)
[2024-06-13 23:34] LABS: Sodium 125 mmol/L (136-145)
[2024-06-14 00:11] VITALS: BP 128/85; PULSE 93; RESP 18; O2SAT 99
[2024-06-16 22:25] LABS: Zonisamide 17 mcg/mL (10-40)
== END 2024-06-14 00:11 | disposition short-term general hospital (02) ==
LOC: ER 23:57
PROVIDERS: Emergency Provider Emergency Medicine; PCP Student in an Organized Health Care Education/Training Program
DX: G40.409 Other generalized epilepsy and epileptic syndromes, not intractable, without status epilepticus (principal); E87.1 Hypo-osmolality and hyponatremia; E23.2 Diabetes insipidus; E23.0 Hypopituitarism; H47.612 Cortical blindness, left side of brain; H47.611 Cortical blindness, right side of brain; G93.9 Disorder of brain, unspecified; Z87.820 Personal history of traumatic brain injury
CPT/HCPCS: 80053; 80203; 82962; 96361; 96372; 96374; 96375; 99285; 70450; 81003; 83735; 84295; 85025; 85610; J1720; J2060; J2597

== ENCOUNTER 2024-06-28 13:44 | Outpatient (REF) | payer MEDICAID, SELFPAY ==
--- OUTSIDE RECORDS SUMMARY | 2024-06-28 13:47 | XMS_ITS | Data Portability ---
Author Organization [place] - [facility] Address [address] [facility] [address] Care Team Providers Care Risk And Compliance Analytics Director Name Role Phone [facility] Psychiatrist Assessment Encounter Date Assessment Date Assessment LastModified by Organization Details LastModified Time 09/18/2023 09/18/2023 Pt. 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 He does take aspirin which may explain this, but we will check liver labs and PT/INR to see if there is any correlation. [email or web address] Not available 09/18/2023 10:32:26 Plan of Treatment Reminders Order Date Submit Date Provider Last Modified By Organization Details Last Modified Time Details Appointments Follow Up 30 2023 11:20A Torito More Not available Not available Not available Lab CMP, serum or plasma 2023 024 [facility] (Registration ), [address] [place] [address] [place], [address], 09/18/2023 16:32:24 PT/INR 2023 024 [facility] (Registration ), [address] [place] [address] [place], [address], 09/25/2023 10:33:39 CBC w/ auto diff - 1 [place], 1 LAVB, 1 Blue 2023 024 [facility] (Registration ), [address] [place] [address] [place], [address], 09/18/2023 16:41:31 lipids, total, serum [address] [facility] (Registration ), [address] [place] [address] [facility] [place], [address], 03/12/2024 14:26:44 CBC w/ auto diff 2023 024 [email or web address] [facility] (Registration ), [address] [place] [address] [place], [address], 03/05/2024 16:55:12 C-reactiv e protein, quantitat bebe, serum or plasma [address] [facility] (Registration ), [address] [place] [address] [place], [address], 03/12/2024 14:26:43 ESR (erythroc yte sedimenta tion rate), blood [address] [facility] (Registration ), [address] [place] [address] [place], [address], 03/12/2024 14:26:44 CMP, serum or plasma - 1 SST, 1 [place], 1 LAV 2023 024 [facility] (Registration ), [address] [place] [address] [place], [address], 03/05/2024 16:36:05 urinalysi s, dipstick [address] [facility] ([facility]), [address] [place] [address] [place], [address], 03/12/2024 14:26:43 TSH, serum, reflex free T4 [address] [facility] (Registration ), [address] [place] [address] [place], [address], 03/12/2024 14:26:44 Referral None recorded. Procedures None recorded. Surgeries None recorded. Imaging None recorded. Medication Orders mupirocin 2 % topical ointment 2023 [email or web address] [place] [id number] [address] [place], [address], 06/28/2024 12:44:27 hydroxyzi ne HCl 25 mg tablet 2023 024 [place] [id number] [address] [place], [address], 09/18/2023 10:33:44 quetiapin e ER 200 mg tablet,ex tended release 24 hr 2023 [place] [address] [address] [place], [address], 03/05/2024 12:23:09 cephalexi n 500 mg capsule 2023 024 [place] [address] [address] [place], [address], 06/28/2024 13:34:22 Patient TargetsNo targets recorded. Patient Instructions Encounter Date Encounter Id Patient Instructions Last Modified By Organization Details Last Modified Time 05/04/2024 [id number] cellulitis: care instructions [email or web address] Not available 05/04/2024 11:24:50 Reason for Referral None Reported. Results Created Date Observation Date Name Description Value Unit Range Abnormal Flag Note LastModifiedBy Organization Detail LastModifiedTime 09/18/1909/18/2023 PROTH ROMBI N TIME prothrombin time 10.7 sec 9.1-11 .1 normal Not Available [facility] [address] [place], [address] 09/18/2023 16:14:17 09/18/1909/18/2023 PROTH ROMBI N TIME INR 1.1 0.9-1. 1 normal Recom ivon d INR thera peuti c range s for orall y admin ister ed drugs are as follo ws: -Elias dard Inten sity 2.0 to 3.0 -High er Inten sity 3.0 to 4.5 Not Available [address] [place], [address] 09/18/2023 16:14:17 09/18/19 24 09/18/2023 COMPR EHENS BEBE METAB OLIC PANEL calcium 8.8 mg/dL 8.5-10 .1 normal Not Available [address] [place], [address] 09/18/2023 16:32:24 09/18/19 24 09/18/2023 COMPR EHENS BEBE METAB OLIC PANEL glucose 95 mg/dL 74-106 normal Not Available Barrie gomez [address] [place], [address] 09/18/2023 16:32:24 09/18/19 24 09/18/2023 COMPR EHENS BEBE METAB OLIC PANEL BUN 18 mg/dL 7-18 normal Not Available Barrie [address] [place], [address] 09/18/2023 16:32:24 09/18/19 24 09/18/2023 COMPR EHENS BEBE METAB OLIC PANEL creatinine 1.0 mg/dL 0.70-1 .30 normal Not Available [address] [place], [address] 09/18/2023 16:32:24 09/18/19 24 09/18/2023 COMPR EHENS [...] young er-ag ed adult s. Not Available [address] [place], [address] 09/18/2023 16:32:24 09/18/19 24 09/18/2023 COMPR EHENS BEBE METAB OLIC PANEL total protein 7.2 g/dL 6.4-8. 2 normal Not Available [address] [place], [address] 09/18/2023 16:32:24 09/18/19 24 09/18/2023 COMPR EHENS BEBE METAB OLIC PANEL albumin 4.0 g/dL 3.4-5. 0 normal Not Available [address] [place], [address] 09/18/2023 16:32:24 09/18/19 24 09/18/2023 COMPR EHENS BEBE METAB OLIC PANEL bilirubin, total 0.4 mg/dL 0.2-1. 0 normal Not Available [address] [place], [address] 09/18/2023 16:32:24 09/18/19 24 09/18/2023 COMPR EHENS BEBE METAB OLIC PANEL alk phos 111 U/L 46-116 normal Not Available [address] [place], [address] 09/18/2023 16:32:24 09/18/19 24 09/18/2023 COMPR EHENS BEBE METAB OLIC PANEL sodium 148 mmol/ L 136-14 5 high Not Available [address] [place], [address] 09/18/2023 16:32:24 09/18/19 24 09/18/2023 COMPR EHENS BEBE METAB OLIC PANEL potassium 3.7 mmol/ L 3.5-5. 1 normal Not Available [address] [place], [address] 09/18/2023 16:32:24 09/18/19 24 09/18/2023 COMPR EHENS BEBE METAB OLIC PANEL chloride 109 mmol/ L 98-107 high Not Available [address] [place], [address] 09/18/2023 16:32:24 09/18/19 24 09/18/2023 COMPR EHENS BEBE METAB OLIC PANEL CO2 26.2 mmol/ L 21.0-3 2.0 normal Not Available [address] [place], [address] 09/18/2023 16:32:24 09/18/19 24 09/18/2023 COMPR EHENS BEBE METAB OLIC PANEL anion gap 12.8 mmol/ L 3-11 high Not Available [address] [place], [address] 09/18/2023 16:32:24 09/18/19 24 09/18/2023 COMPR EHENS BEBE METAB OLIC PANEL AST 23 U/L 15-37 normal Not Available Barrie gomez [address] [place], [address] 09/18/2023 16:32:24 09/18/19 24 09/18/2023 COMPR EHENS BEBE METAB OLIC PANEL ALT 69 U/L 16-63 high Not Available Barrie gomez [address] [place], [address] 09/18/2023 16:32:24 09/18/19 24 09/18/2023 COMPL ETE BLOOD COUNT W/DIF F WBC 6.40 10_3/ uL 4.4-10 .8 normal Not Available [address] [place], [address] 09/18/2023 16:41:31 09/18/19 24 09/18/2023 COMPL ETE BLOOD COUNT W/DIF F RBC 5.16 10_6/ uL 4.36-5 .78 normal Not Available [address] [place], [address] 09/18/2023 16:41:31 09/18/19 24 09/18/2023 COMPL ETE BLOOD COUNT W/DIF F HGB 13.0 g/dL 13.5-1 7.5 low Not Available [address] [place], [address] 09/18/2023 16:41:31 09/18/19 24 09/18/2023 COMPL ETE BLOOD COUNT W/DIF F HCT 39.6 % 40.0-5 0.0 low Not Available [address] [place], [address] 09/18/2023 16:41:31 09/18/19 24 09/18/2023 COMPL ETE BLOOD COUNT W/DIF F MCV 77 fL 80-95 low Not Available [address] [place], [address] 09/18/2023 16:41:31 09/18/19 24 09/18/2023 COMPL ETE BLOOD COUNT W/DIF F MCH 25.2 pg 27.0-3 3.0 low Not Available [address] [place], [address] 09/18/2023 16:41:31 09/18/19 24 09/18/2023 COMPL ETE BLOOD COUNT W/DIF F MCHC 32.8 % 32.0-3 6.0 normal Not Available [address] [place], [address] 09/18/2023 16:41:31 09/18/19 24 09/18/2023 COMPL ETE BLOOD COUNT W/DIF F RDW 15.2 % 11.8-1 4.1 high Not Available [address] [place], [address] 09/18/2023 16:41:31 09/18/19 24 09/18/2023 COMPL ETE BLOOD COUNT W/DIF F platelet count 267 10_3/ uL 130-40 0 normal Not Available [address] [place], [address] 09/18/2023 16:41:31 09/18/19 24 09/18/2023 COMPL ETE BLOOD COUNT W/DIF F MPV 10.4 fL 8.0-11 .0 normal Not Available [address] [place], [address] 09/18/2023 16:41:31 09/18/19 24 09/18/2023 COMPL ETE BLOOD COUNT W/DIF F neutrophils % 51.5 Not Available [facility] [address] [place], [address] 09/18/2023 16:41:31 09/18/19 24 09/18/2023 COMPL ETE BLOOD COUNT W/DIF F lymphocytes % 37.0 Not Available [facility] [address] [place], [address] 09/18/2023 16:41:31 09/18/19 24 09/18/2023 COMPL ETE BLOOD COUNT W/DIF F monocytes % 8.3 Not Available [address] [place], [address] 09/18/2023 16:41:31 09/18/19 24 09/18/2023 COMPL ETE BLOOD COUNT W/DIF F eosinophils % 2.5 Not Available [address] [place], [address] 09/18/2023 16:41:31 09/18/19 24 09/18/2023 COMPL ETE BLOOD COUNT W/DIF F basophils % 0.5 Not Available [address] [place], [address] 09/18/2023 16:41:31 09/18/19 24 09/18/2023 COMPL ETE BLOOD COUNT W/DIF F immature grans % 0.2 Not Available [address] [place], [address] 09/18/2023 16:41:31 09/18/19 24 09/18/2023 COMPL ETE BLOOD COUNT W/DIF F nucleated RBC 0.0 % 0.0-0. 3 normal Not Available [address] [place], [address] 09/18/2023 16:41:31 09/18/19 24 09/18/2023 COMPL ETE BLOOD COUNT W/DIF F absolute neutrophil count 3.30 10_3/ uL 1.2-6. 7 normal Not Available [address] [place], [address] 09/18/2023 16:41:31 09/18/19 24 09/18/2023 COMPL ETE BLOOD COUNT W/DIF F absolute lymphocyte count 2.37 10_3/ uL 1.2-3. 4 normal Not Available [address] [place], [address] 09/18/2023 16:41:31 09/18/19 24 09/18/2023 COMPL ETE BLOOD COUNT W/DIF F absolute monocyte count 0.53 10_3/ uL 0.1-0. 8 normal Not Available [address] [place], [address] 09/18/2023 16:41:31 09/18/19 24 09/18/2023 COMPL ETE BLOOD COUNT W/DIF F absolute eosinophil count 0.16 10_3/ uL 0.0-0. 7 normal Not Available [address] [place], [address] 09/18/2023 16:41:31 09/18/19 24 09/18/2023 COMPL ETE BLOOD COUNT W/DIF F absolute basophil count 0.03 10_3/ uL 0.0-0. 2 normal Not Available [address] [place], [address] 09/18/2023 16:41:31 03/05/20 24 03/05/2024 COMPL ETE BLOOD COUNT W/DIF F WBC 6.97 10_3/ uL 4.4-10 .8 normal Not Available [address] [place], [address] 03/05/2024 16:12:09 03/05/20 24 03/05/2024 COMPL ETE BLOOD COUNT W/DIF F RBC 5.23 10_6/ uL 4.36-5 .78 normal Not Available [address] [place], [address] 03/05/2024 16:12:09 03/05/20 24 03/05/2024 COMPL ETE BLOOD COUNT W/DIF F HGB 13.0 g/dL 13.5-1 7.5 low Not Available [address] [place], [address] 03/05/2024 16:12:09 03/05/20 24 03/05/2024 COMPL ETE BLOOD COUNT W/DIF F HCT 40.3 % 40.0-5 0.0 normal Not Available [address] [place], [address] 03/05/2024 16:12:09 03/05/20 24 03/05/2024 COMPL ETE BLOOD COUNT W/DIF F MCV 77 fL 80-95 low Not Available Barrie gomez [address] [place], [address] 03/05/2024 16:12:09 03/05/20 24 03/05/2024 COMPL ETE BLOOD COUNT W/DIF F MCH 24.9 pg 27.0-3 3.0 low Not Available [address] [place], [address] 03/05/2024 16:12:09 03/05/20 24 03/05/2024 COMPL ETE BLOOD COUNT W/DIF F MCHC 32.3 % 32.0-3 6.0 normal Not Available [address] [place], [address] 03/05/2024 16:12:09 03/05/20 24 03/05/2024 COMPL ETE BLOOD COUNT W/DIF F RDW 15.7 % 11.8-1 4.1 high Not Available [address] [place], [address] 03/05/2024 16:12:09 03/05/20 24 03/05/2024 COMPL ETE BLOOD COUNT W/DIF F platelet count 237 10_3/ uL 130-40 0 normal Not Available [address] [place], [address] 03/05/2024 16:12:09 03/05/20 24 03/05/2024 COMPL ETE BLOOD COUNT W/DIF F MPV 10.4 fL 8.0-11 .0 normal Not Available [address] [place], [address] 03/05/2024 16:12:09 03/05/20 24 03/05/2024 COMPL ETE BLOOD COUNT W/DIF F neutrophils % 62.7 % Not Available [facility] [address] [place], [address] 03/05/2024 16:12:09 03/05/20 24 03/05/2024 COMPL ETE BLOOD COUNT W/DIF F lymphocytes % 25.3 % Not Available [facility] [address] [place], [address] 03/05/2024 16:12:09 03/05/20 03/05/2024 COMPL ETE BLOOD COUNT W/DIF F monocytes % 9.3 % Not Available [address] [place], [address] 03/05/2024 16:12:09 03/05/20 24 03/05/2024 COMPL ETE BLOOD COUNT W/DIF F eosinophils % 1.9 % Not Available [address] [place], [address] 03/05/2024 16:12:09 03/05/20 24 03/05/2024 COMPL ETE BLOOD COUNT W/DIF F basophils % 0.4 % Not Available [address] [place], [address] 03/05/2024 16:12:09 03/05/20 24 03/05/2024 COMPL ETE BLOOD COUNT W/DIF F immature grans % 0.4 % Not Available [address] [place], [address] 03/05/2024 16:12:09 03/05/20 24 03/05/2024 COMPL ETE BLOOD COUNT W/DIF F nucleated RBC 0.0 % 0.0-0. 3 normal Not Available [address] [place], [address] 03/05/2024 16:12:09 03/05/20 24 03/05/2024 COMPL ETE BLOOD COUNT W/DIF F absolute neutrophil count 4.37 10_3/ uL 1.2-6. 7 normal Not Available [address] [place], [address] 03/05/2024 16:12:09 03/05/20 24 03/05/2024 COMPL ETE BLOOD COUNT W/DIF F absolute lymphocyte count 1.76 10_3/ uL 1.2-3. 4 normal Not Available [address] [place], [address] 03/05/2024 16:12:09 03/05/20 24 03/05/2024 COMPL ETE BLOOD COUNT W/DIF F absolute monocyte count 0.65 10_3/ uL 0.1-0. 8 normal Not Available [address] [place], [address] 03/05/2024 16:12:09 03/05/20 24 03/05/2024 COMPL ETE BLOOD COUNT W/DIF F absolute eosinophil count 0.13 10_3/ uL 0.0-0. 7 normal Not Available [address] [place], [address] 03/05/2024 16:12:09 03/05/20 24 03/05/2024 COMPL ETE BLOOD COUNT W/DIF F absolute basophil count 0.03 10_3/ uL 0.0-0. 2 normal Not Available [address] [place], [address] 03/05/2024 16:12:09 03/05/20 24 03/05/2024 ESR ESR 2 mm/HR 0-15 normal Not Available [address] [place], [address] 03/05/2024 16:13:06 03/05/20 24 03/05/2024 COMPR EHENS BEBE METAB OLIC PANEL calcium 9.3 mg/dL 8.5-10 .1 normal Not Available [address] [place], [address] 03/05/2024 17:45:19 03/05/20 24 03/05/2024 COMPR EHENS BEBE METAB OLIC PANEL glucose 88 mg/dL 74-106 normal Not Available Barrie gomez [address] [place], [address] 03/05/2024 17:45:19 03/05/20 24 03/05/2024 COMPR EHENS BEBE METAB OLIC PANEL BUN 24 mg/dL 7-18 high Not Available Barrie gomez [address] [place], [address] 03/05/2024 17:45:19 03/05/20 24 03/05/2024 COMPR EHENS BEBE METAB OLIC PANEL creatinine 1.1 mg/dL 0.70-1 .30 normal Not Available [address] [place], [address] 03/05/2024 17:45:19 03/05/20 24 03/05/2024 COMPR EHENS BEBE METAB OLIC PANEL estimated GFR 90.90 mL/min /1.73m 2 The eGFR is calcu [...] young er-ag ed adult s. Not Available [address] [place], [address] 03/05/2024 17:45:19 03/05/20 24 03/05/2024 COMPR EHENS BEBE METAB OLIC PANEL total protein 7.3 g/dL 6.4-8. 2 normal Not Available [address] [place], [address] 03/05/2024 17:45:19 03/05/20 24 03/05/2024 COMPR EHENS BEBE METAB OLIC PANEL albumin 4.1 g/dL 3.4-5. 0 normal Not Available [address] [place], [address] 03/05/2024 17:45:19 03/05/20 24 03/05/2024 COMPR EHENS BEBE METAB OLIC PANEL bilirubin, total 0.22 mg/dL 0.2-1. 0 normal Not Available [address] [place], [address] 03/05/2024 17:45:19 03/05/20 24 03/05/2024 COMPR EHENS BEBE METAB OLIC PANEL alk phos 124 U/L 46-116 high Not Available [address] [place], [address] 03/05/2024 17:45:19 03/05/20 24 03/05/2024 COMPR EHENS BEBE METAB OLIC PANEL sodium 142 mmol/ L 136-14 5 normal Not Available [address] [place], [address] 03/05/2024 17:45:19 03/05/20 24 03/05/2024 COMPR EHENS BEBE METAB OLIC PANEL potassium 3.7 mmol/ L 3.5-5. 1 normal Not Available [address] [place], [address] 03/05/2024 17:45:19 03/05/20 24 03/05/2024 COMPR EHENS BEBE METAB OLIC PANEL chloride 106 mmol/ L 98-107 normal Not Available [address] [place], [address] 03/05/2024 17:45:19 03/05/20 24 03/05/2024 COMPR EHENS BEBE METAB OLIC PANEL CO2 26.0 mmol/ L 21.0-3 2.0 normal Not Available [address] [place], [address] 03/05/2024 17:45:19 03/05/20 24 03/05/2024 COMPR EHENS BEBE METAB OLIC PANEL anion gap 10.0 mmol/ L 3-11 normal Not Available [address] [place], [address] 03/05/2024 17:45:19 03/05/20 24 03/05/2024 COMPR EHENS BEBE METAB OLIC PANEL AST 29 U/L 15-37 normal Not Available Barrie [address] [place], [address] 03/05/2024 17:45:19 03/05/20 24 03/05/2024 COMPR EHENS BEBE METAB OLIC PANEL ALT 67 U/L 16-63 high Not Available Barrie [address] [place], [address] 03/05/2024 17:45:19 03/05/20 24 03/05/2024 TSH (W/RE F FT4) TSH (w/ref FT4) < 0.01 uIU/m L 0.36-3 .74 low Not Available [address] [place], [address] 03/05/2024 16:36:06 03/05/20 24 03/05/2024 C-CHELSEA CTIVE PROTE IN C-reactive protein 0.52 mg/dL <or=0. 5 high Not Available [address] [place], [address] 03/05/2024 16:36:06 03/05/20 24 03/05/2024 TSH (W/RE F FT4) TSH (w/ref FT4) < 0.01 uIU/m L 0.36-3 .74 low Not Available [address] [place], [address] 03/05/2024 17:05:17 03/05/20 24 03/05/2024 FREE T4 free T4 1.23 NG/dL 0.76-1 .46 normal Not Available [address] [place], [address] 03/05/2024 17:45:21 03/05/20 24 03/05/2024 C-CHELSEA CTIVE PROTE IN C-reactive protein 0.52 mg/dL <or=0. 5 high Not Available [address] [place], [address] 03/05/2024 17:05:18 03/05/20 24 03/05/2024 LIPID 2 cholesterol 91 mg/dL <200 Not Available [address] [place], [address] 03/05/2024 17:45:20 03/05/20 24 03/05/2024 LIPID 2 triglyceride 117 mg/dL <150 Not Available [address] [place], [address] 03/05/2024 17:45:20 03/05/20 24 03/05/2024 LIPID 2 HDL cholesterol 40 mg/dL 40-60 Not Available [facility] [address] [place], [address] 03/05/2024 17:45:20 03/05/20 24 03/05/2024 LIPID 2 calculated LDL 28 mg/dL <100 Natio nal Jackelin stero l Educa tion Progr am (NCEP -ATPI II) class ifica tions : Jackelin stero l <200 mg/dL Jayden able Jackelin stero l 200-2 39 mg/dL [place] High Jackelin stero l >or=2 40 mg/dL High HDL <40 mg/dL Low HDL >or=6 0 mg/dL High LDL <100 mg/dL Optim al LDL 100-1 29 mg/dL Near Optim al/Ab ove Optim al LDL 130-1 59 mg/dL [place] High LDL 160-1 89 mg/dL High LDL >or=1 90 mg/dL Very High *The above refer ence range is for adult s 18 years or older . Not Available [address] [place], [address] 03/05/2024 17:45:20 03/05/20 24 03/05/2024 TSH (W/RE F FT4) TSH (w/ref FT4) < 0.01 uIU/m L 0.36-3 .74 low Not Available [address] [place], [address] 03/05/2024 17:45:20 03/05/20 24 03/05/2024 C-CHELSEA CTIVE PROTE IN C-reactive protein 0.52 mg/dL <or=0. 5 high Not Available [address] [place], [address] 03/05/2024 17:45:21 03/10/20 24 03/10/2024 BASIC METAB OLIC PANEL calcium 9.2 mg/dL 8.5-10 .1 normal Not Available [address] [place], [address] 03/10/2024 17:04:57 03/10/20 24 03/10/2024 BASIC METAB OLIC PANEL glucose 86 mg/dL 74-106 normal Not Available Barrie gomez [address] [place], [address] 03/10/2024 17:04:57 03/10/20 24 03/10/2024 BASIC METAB OLIC PANEL BUN 17 mg/dL 7-18 normal Not Available Barrie gomez [address] [place], [address] 03/10/2024 17:04:57 03/10/20 24 03/10/2024 BASIC METAB OLIC PANEL creatinine 0.9 mg/dL 0.70-1 .30 normal Not Available [address] [place], [address] 03/10/2024 17:04:57 03/10/20 24 03/10/2024 BASIC METAB OLIC PANEL estimated GFR 115.65 mL/min /1.73m 2 The eGFR is calcu [...] young er-ag ed adult s. Not Available [address] [place], [address] 03/10/2024 17:04:57 03/10/20 24 03/10/2024 BASIC METAB OLIC PANEL sodium 140 mmol/ L 136-14 5 normal Not Available [address] [place], [address] 03/10/2024 17:04:57 03/10/20 24 03/10/2024 BASIC METAB OLIC PANEL potassium 4.1 mmol/ L 3.5-5. 1 normal Not Available [address] [place], [address] 03/10/2024 17:04:57 03/10/20 24 03/10/2024 BASIC METAB OLIC PANEL chloride 104 mmol/ L 98-107 normal Not Available [address] [place], [address] 03/10/2024 17:04:57 03/10/20 24 03/10/2024 BASIC METAB OLIC PANEL CO2 27.6 mmol/ L 21.0-3 2.0 normal Not Available [address] [place], [address] 03/10/2024 17:04:57 03/10/20 24 03/10/2024 BASIC METAB OLIC PANEL anion gap 8.4 mmol/ L 3-11 normal Not Available [address] [place], [address] 03/10/2024 17:04:57 03/10/20 24 03/10/2024 URINA LYSIS color Yellow yellow Not Available Barrie gomez [address] [place], [address] 03/10/2024 18:14:16 03/10/20 24 03/10/2024 URINA LYSIS clarity Clear clear Not Available Barrie gomez [address] [place], [address] 03/10/2024 18:14:16 03/10/20 24 03/10/2024 URINA LYSIS specific gravity 1.020 1.005- 1.025 normal Not Available [address] [place], [address] 03/10/2024 18:14:16 03/10/20 24 03/10/2024 URINA LYSIS pH 5.5 5-8 normal Not Available Barrie gomez [address] [place], [address] 03/10/2024 18:14:16 03/10/20 24 03/10/2024 URINA LYSIS leukocyte esterase Negati ve negati ve Not Available [address] [place], [address] 03/10/2024 18:14:16 03/10/20 24 03/10/2024 URINA LYSIS nitrite Negati ve negati ve Not Available [address] [place], [id number] 03/10/2024 18:14:16 03/10/20 24 03/10/2024 URINA LYSIS protein Negati ve mg/dL neg-tr mike Not Available [address] [place], [id number] 03/10/2024 18:14:16 03/10/20 24 03/10/2024 URINA LYSIS glucose Negati ve mg/dL negati ve Not Available [address] [place], [id number] 03/10/2024 18:14:16 03/10/20 24 03/10/2024 URINA LYSIS ketones Negati ve mg/dL negati ve Not Available [address] [place], [id number] 03/10/2024 18:14:16 03/10/20 24 03/10/2024 URINA LYSIS urobilinogen 0.2 mg/dL up to 0.2 Not Available [address] [place], [id number] 03/10/2024 18:14:16 03/10/20 24 03/10/2024 URINA LYSIS bilirubin Negati ve negati ve Not Available [address] [place], [id number] 03/10/2024 18:14:16 03/10/20 24 03/10/2024 URINA LYSIS blood Negati ve negati ve Not Available [address] [place], [id number] 03/10/2024 18:14:16 03/10/20 24 03/13/2024 FREE THYRO XINE INDEX thyroxine total 10.8 mcg/d L 4.5 - 11.7 Not Available [address] [place], [id number] 03/15/2024 08:25:07 03/10/20 24 03/13/2024 FREE THYRO XINE INDEX thyroxine binding capacity 1.1 tbi 0.8 - 1.3 Not Available [address] [place], [id number] 03/15/2024 08:25:07 03/10/20 24 03/13/2024 FREE THYRO XINE INDEX free thyroxine index 9.8 mcg/d L 4.8 - 12.7 Test Perfo rmed by: [facility] [address], [place] [address] Lab Direc tor: Rosita Oreilly nn Ph.D. ; CLIA# [id number] Not Available [address] [place], [address] 03/15/2024 08:25:07 03/10/20 24 03/10/2024 BASIC METAB OLIC PANEL calcium 9.2 mg/dL 8.5-10 .1 normal Not Available [address] [place] [place], [address] 03/16/2024 03:04:04 03/10/20 24 03/10/2024 BASIC METAB OLIC PANEL glucose 86 mg/dL 74-106 normal Not Available Barrie gomez [address] [place], [address] 03/16/2024 03:04:04 03/10/20 24 03/10/2024 BASIC METAB OLIC PANEL BUN 17 mg/dL 7-18 normal Not Available Barrie gomez [address] [place], [address] 03/16/2024 03:04:04 03/10/20 24 03/10/2024 BASIC METAB OLIC PANEL creatinine 0.9 mg/dL 0.70-1 .30 normal Not Available [address] [place], [address] 03/16/2024 03:04:04 03/10/2003/10/2024 BASIC METAB OLIC PANEL estimated GFR 115.65 mL/min /1.73m 2 The eGFR is calcu [...] young er-ag ed adult s. Not Available [address] [place], [address] 03/16/2024 03:04:04 03/10/20 24 03/10/2024 BASIC METAB OLIC PANEL sodium 140 mmol/ L 136-14 5 normal Not Available [address] [place], [address] 03/16/2024 03:04:04 03/10/20 24 03/10/2024 BASIC METAB OLIC PANEL potassium 4.1 mmol/ L 3.5-5. 1 normal Not Available [address] [place], [address] 03/16/2024 03:04:04 03/10/2003/10/2024 BASIC METAB OLIC PANEL chloride 104 mmol/ L 98-107 normal Not Available [address] [place], [address] 03/16/2024 03:04:04 03/10/2003/10/2024 BASIC METAB OLIC PANEL CO2 27.6 mmol/ L 21.0-3 2.0 normal Not Available [address] [place], [address] 03/16/2024 03:04:04 03/10/2003/10/2024 BASIC METAB OLIC PANEL anion gap 8.4 mmol/ L 3-11 normal Not Available [address] [place], [address] 03/16/2024 03:04:04 03/10/2003/10/2024 URINA LYSIS color Yellow yellow Not Available Barrie gomez [address] [place], [address] 03/16/2024 03:04:07 03/10/2003/10/2024 URINA LYSIS clarity Clear clear Not Available Barrie gomez [address] [place], [address] 03/16/2024 03:04:07 03/10/2003/10/2024 URINA LYSIS specific gravity 1.020 1.005- 1.025 normal Not Available [address] [place], [address] 03/16/2024 03:04:07 03/10/2003/10/2024 URINA LYSIS pH 5.5 5-8 normal Not Available Barrie gomez [address] [place], [address] 03/16/2024 03:04:07 03/10/2003/10/2024 URINA LYSIS leukocyte esterase Negati ve negati ve Not Available [address] [place], [address] 03/16/2024 03:04:07 03/10/20 24 03/10/2024 URINA LYSIS nitrite Negati ve negati ve Not Available [address] [place], [address] 03/16/2024 03:04:07 03/10/20 24 03/10/2024 URINA LYSIS protein Negati ve mg/dL neg-tr mike Not Available [address] [place], [address] 03/16/2024 03:04:07 03/10/20 24 03/10/2024 URINA LYSIS glucose Negati ve mg/dL negati ve Not Available [address] [place], [address] 03/16/2024 03:04:07 03/10/20 24 03/10/2024 URINA LYSIS ketones Negati ve mg/dL negati ve Not Available [address] [place], [address] 03/16/2024 03:04:07 03/10/20 24 03/10/2024 URINA LYSIS urobilinogen 0.2 mg/dL up to 0.2 Not Available [address] [place], [address] 03/16/2024 03:04:07 03/10/2003/10/2024 URINA LYSIS bilirubin Negati ve negati ve Not Available [address] [place], [address] 03/16/2024 03:04:07 03/10/20 24 03/10/2024 URINA LYSIS blood Negati ve negati ve Not Available [address] [place], [address] 03/16/2024 03:04:07 06/13/20 24 06/13/2024 SODIU M sodium 125 mmol/ L 136-14 5 low Not Available [address] [place], [address] 06/13/2024 23:39:16 06/13/2006/13/2024 SODIU M sodium 122 mmol/ L 136-14 5 critical low Criti zurdo value repor ivana to and readb ack from OLINDA [facility] (PLANT EQUIPMENT ENGINEER) at 2222 06/13 by LAB.I TI Resul t verif ied by repea t guillermo sis Not Available [address] [place], [address] 06/13/2024 22:28:11 06/13/20 24 06/13/2024 URINA LYSIS color Yellow yellow Not Available Barrie gomez [address] [place], [address] 06/13/2024 20:53:56 06/13/20 24 06/13/2024 URINA LYSIS clarity Clear clear Not Available Barrie gomez [address] [place], [address] 06/13/2024 20:53:56 06/13/20 24 06/13/2024 URINA LYSIS specific gravity <= 1.005 1.005- 1.025 normal Not Available [address] [place], [address] 06/13/2024 20:53:56 06/13/20 24 06/13/2024 URINA LYSIS pH 5.0 5-8 normal Not Available Barrie gomez [address] [place], [address] 06/13/2024 20:53:56 06/13/20 24 06/13/2024 URINA LYSIS leukocyte esterase Negati ve negati ve Not Available [address] [place], [address] 06/13/2024 20:53:56 06/13/20 24 06/13/2024 URINA LYSIS nitrite Negati ve negati ve Not Available [address] [place], [address] 06/13/2024 20:53:56 06/13/20 24 06/13/2024 URINA LYSIS protein Negati ve mg/dL neg-tr mike Not Available [address] [place], [address] 06/13/2024 20:53:56 06/13/20 24 06/13/2024 URINA LYSIS glucose Negati ve mg/dL negati ve Not Available [address] [place], [address] 06/13/2024 20:53:56 06/13/20 24 06/13/2024 URINA LYSIS ketones Negati ve mg/dL negati ve Not Available [address] [place], [address] 06/13/2024 20:53:56 06/13/20 24 06/13/2024 URINA LYSIS urobilinogen 0.2 mg/dL up to 0.2 Not Available [address] [place], [address] 06/13/2024 20:53:56 06/13/20 24 06/13/2024 URINA LYSIS bilirubin Negati ve negati ve Not Available [address] [place], [address] 06/13/2024 20:53:56 06/13/20 24 06/13/2024 URINA LYSIS blood Negati ve negati ve Not Available [address] [place], [address] 06/13/2024 20:53:56 06/13/20 24 06/16/2024 ZONIS AMIDE zonisamide 17 mcg/m L 10-40 ----- ----- ----- ----A DDITI ONAL INFOR MATIO N---- ----- ----- ----- This test was sydney padilla and its perfo rmanc e cristina cteri stics deter mined by [facility] in a elidia r consi stent with JEANNIE chanel ts. This test has not been clear ed or appro elly by the U.S. Food and Drug Admin istra tion. Test Perfo rmed by: [facility] Labor atori es - [address] [place] [address] Lab Direc tor: Rosita Oreilly nn Ph.D. ; CLIA# [id number] Not Available [address] [place], [address] 06/17/2024 04:46:05 06/13/20 24 06/13/2024 MAGNE SIUM magnesium 2.1 mg/dL 1.8-2. 4 normal Not Available [address] [place], [address] 06/13/2024 21:12:58 06/13/20 24 06/13/2024 COMPR EHENS BEBE METAB OLIC PANEL calcium 8.2 mg/dL 8.5-10 .1 low Not Available [address] [place], [address] 06/13/2024 21:12:57 06/13/20 24 06/13/2024 COMPR EHENS BEBE METAB OLIC PANEL glucose 60 mg/dL 74-106 low Not Available Barrie gomez [address] [place], [address] 06/13/2024 21:12:57 06/13/20 24 06/13/2024 COMPR EHENS BEBE METAB OLIC PANEL BUN 15 mg/dL 7-18 normal Not Available Barrie [address] [place], [address] 06/13/2024 21:12:57 06/13/20 24 06/13/2024 COMPR EHENS BEBE METAB OLIC PANEL creatinine 1.1 mg/dL 0.70-1 .30 normal Not Available [address] [place], [address] 06/13/2024 21:12:57 06/13/20 24 06/13/2024 COMPR EHENS BEBE METAB OLIC PANEL estimated GFR 90.90 mL/min /1.73M 2 The eGFR is calcu lated from [...] young er-ag ed adult s. Not Available [address] [place], [address] 06/13/2024 21:12:57 06/13/20 24 06/13/2024 COMPR EHENS BEBE METAB OLIC PANEL total protein 8.1 g/dL 6.4-8. 2 normal Not Available [address] [place], [address] 06/13/2024 21:12:57 06/13/20 24 06/13/2024 COMPR EHENS BEBE METAB OLIC PANEL albumin 4.1 g/dL 3.4-5. 0 normal Not Available [address] [place], [address] 06/13/2024 21:12:57 06/13/20 24 06/13/2024 COMPR EHENS BEBE METAB OLIC PANEL bilirubin, total 0.59 mg/dL 0.2-1. 0 normal Not Available [address] [place], [address] 06/13/2024 21:12:57 06/13/20 24 06/13/2024 COMPR EHENS BEBE METAB OLIC PANEL alk phos 132 U/L 46-116 high Not Available [address] [place], [address] 06/13/2024 21:12:57 06/13/20 24 06/13/2024 COMPR EHENS BEBE METAB OLIC PANEL sodium 121 mmol/ L 136-14 5 critical low Criti zurdo value repor ivana to and readb ack [place] LEIL[place] (RN), [place] [address]/13 by LAB.I TI Resul t verif ied by repea t guillermo sis Not Available [address] [place], [address] 06/13/2024 21:12:57 06/13/20 24 06/13/2024 COMPR EHENS BEBE METAB OLIC PANEL potassium 4.2 mmol/ L 3.5-5. 1 normal Not Available [address] [place], [address] 06/13/2024 21:12:57 06/13/20 24 06/13/2024 COMPR EHENS BEBE METAB OLIC PANEL chloride 86 mmol/ L 98-107 low Not Available [address] [place], [address] 06/13/2024 21:12:57 06/13/20 24 06/13/2024 COMPR EHENS BEBE METAB OLIC PANEL CO2 22.6 mmol/ L 21.0-3 2.0 normal Not Available [address] [place], [address] 06/13/2024 21:12:57 06/13/20 24 06/13/2024 COMPR EHENS BEBE METAB OLIC PANEL anion gap 12.4 mmol/ L 3-11 high Not Available [address] [place], [address] 06/13/2024 21:12:57 06/13/20 24 06/13/2024 COMPR EHENS BEBE METAB OLIC PANEL AST 23 U/L 15-37 normal Not Available Barrie [address] [place], [address] 06/13/2024 21:12:57 06/13/20 24 06/13/2024 COMPR EHENS BEBE METAB OLIC PANEL ALT 59 U/L 16-63 normal Not Available Barrie [address] [place], [address] 06/13/2024 21:12:57 06/13/20 24 06/13/2024 COMPL ETE BLOOD COUNT W/DIF F WBC 6.66 10_3/ uL 4.4-10 .8 normal Not Available [address] [place], [address] 06/13/2024 21:04:58 06/13/20 24 06/13/2024 COMPL ETE BLOOD COUNT W/DIF F RBC 5.25 10_6/ uL 4.36-5 .78 normal Not Available [address] [place], [address] 06/13/2024 21:04:58 06/13/20 24 06/13/2024 COMPL ETE BLOOD COUNT W/DIF F HGB 12.9 g/dL 13.5-1 7.5 low Not Available [address] [place], [address] 06/13/2024 21:04:58 06/13/20 24 06/13/2024 COMPL ETE BLOOD COUNT W/DIF F HCT 38.5 % 40.0-5 0.0 low Not Available [address] [place], [address] 06/13/2024 21:04:58 06/13/20 24 06/13/2024 COMPL ETE BLOOD COUNT W/DIF F MCV 73 fL 80-95 low Not Available Barrie gomez [address] [place], [address] 06/13/2024 21:04:58 06/13/20 24 06/13/2024 COMPL ETE BLOOD COUNT W/DIF F MCH 24.6 pg 27.0-3 3.0 low Not Available [address] [place], [address] 06/13/2024 21:04:58 06/13/20 24 06/13/2024 COMPL ETE BLOOD COUNT W/DIF F MCHC 33.5 % 32.0-3 6.0 normal Not Available [address] [place], [address] 06/13/2024 21:04:58 06/13/20 24 06/13/2024 COMPL ETE BLOOD COUNT W/DIF F RDW 13.6 % 11.8-1 4.1 normal Not Available [address] [place], [address] 06/13/2024 21:04:58 06/13/20 24 06/13/2024 COMPL ETE BLOOD COUNT W/DIF F platelet count 260 10_3/ uL 130-40 0 normal Not Available [address] [place], [address] 06/13/2024 21:04:58 06/13/20 24 06/13/2024 COMPL ETE BLOOD COUNT W/DIF F MPV 8.9 fL 8.0-11 .0 normal Not Available [address] [place], [address] 06/13/2024 21:04:58 06/13/20 24 06/13/2024 COMPL ETE BLOOD COUNT W/DIF F neutrophils % 61.9 % Not Available [email or web address] [place], [address] 06/13/2024 21:04:58 06/13/20 24 06/13/2024 COMPL ETE BLOOD COUNT W/DIF F lymphocytes % 26.6 % Not Available [address] [place], [address] 06/13/2024 21:04:58 06/13/20 24 06/13/2024 COMPL ETE BLOOD COUNT W/DIF F monocytes % 8.1 % Not Available [address] [place], [address] 06/13/2024 21:04:58 06/13/20 24 06/13/2024 COMPL ETE BLOOD COUNT W/DIF F eosinophils % 1.1 % Not Available [address] [place], [address] 06/13/2024 21:04:58 06/13/20 24 06/13/2024 COMPL ETE BLOOD COUNT W/DIF F basophils % 0.3 % Not Available [address] [place], [address] 06/13/2024 21:04:58 06/13/20 24 06/13/2024 COMPL ETE BLOOD COUNT W/DIF F immature grans % 2.0 % Not Available [address] [place], [address] 06/13/2024 21:04:58 06/13/20 24 06/13/2024 COMPL ETE BLOOD COUNT W/DIF F nucleated RBC 0.0 % 0.0-0. 3 normal Not Available [address] [place], [address] 06/13/2024 21:04:58 06/13/20 24 06/13/2024 COMPL ETE BLOOD COUNT W/DIF F absolute neutrophil count 4.13 10_3/ uL 1.2-6. 7 normal Not Available [address] [place], [address] 06/13/2024 21:04:58 06/13/20 24 06/13/2024 COMPL ETE BLOOD COUNT W/DIF F absolute lymphocyte count 1.77 10_3/ uL 1.2-3. 4 normal Not Available [address] [place], [address] 06/13/2024 21:04:58 06/13/20 24 06/13/2024 COMPL ETE BLOOD COUNT W/DIF F absolute monocyte count 0.54 10_3/ uL 0.1-0. 8 normal Not Available [address] [place], [address] 06/13/2024 21:04:58 06/13/20 24 06/13/2024 COMPL ETE BLOOD COUNT W/DIF F absolute eosinophil count 0.07 10_3/ uL 0.0-0. 7 normal Not Available [address] [place], [address] 06/13/2024 21:04:58 06/13/20 24 06/13/2024 COMPL ETE BLOOD COUNT W/DIF F absolute basophil count 0.02 10_3/ uL 0.0-0. 2 normal Not Available [address] [place], [address] 06/13/2024 21:04:58 06/13/20 24 06/13/2024 COMPL ETE BLOOD COUNT W/DIF F diff comment RBC Morph Review ed Not Available [address] [place], [address] 06/13/2024 21:04:58 06/13/20 24 06/13/2024 COMPL ETE BLOOD COUNT W/DIF F RBC morphology See Below Not Available [address] [place], [address] 06/13/2024 21:04:58 06/13/20 24 06/13/2024 COMPL ETE BLOOD COUNT W/DIF F microcytosis 1+ Not Available [address], [address] 06/13/2024 21:04:58 06/13/20 24 06/13/2024 PROTH ROMBI N TIME prothrombin time 11.0 sec 9.1-11 .1 normal Not Available [address] [place], [address] 06/13/2024 21:04:56 06/13/20 24 06/13/2024 PROTH ROMBI N TIME INR 1.1 0.9-1. 1 normal Recom vion d INR thera peuti c range s for orall y admin ister ed drugs are as follo ws: -Elias dard Inten sity 2.0 to 3.0 -High er Inten sity 3.0 to 4.5 Not Available [facility] [address] , [place], [address] 06/13/2024 21:04:56 10/03/19 24 10/03/2023 CT imagi ng repor t Patien t Name: Miguel Angel Burgos Unit #: [id number] Loc: DI Orderi ng Provid er: Rowan Littlejohn Accoun t #: [id number] Status : REG CLI Primar y [...] were create d and review ed COMPAR BRENDA: CT CT HEAD WO from 2019 FINDIN [...] facili ty are submit ivana to the [facility] al Radiol ogy Data Regist ry (NRDR) [...] ------ ---- Dictat ed By: Shani Bermudez 851 Transc ribed By: Brandon White 851 This [...] the addres s above. Thank- you. [email or web address] [facility] [address] [place], [address] 10/08/2023 14:54:07 10/03/19 24 10/03/2023 CT imagi ng repor t Patien t Name: Miguel Angel Burgos Unit #: [id number] Loc: DI Orderi ng Provid er: Rowan Littlejohn Accoun t #: [id number] Status : REG CLI Primar y [...] were create d and review ed COMPAR BRENDA: CT CT HEAD WO from 2019 FINDIN [...] the addres s above. Thank- you. [email or web address] [facility] [address], [place], [address] 10/03/2023 19:17:29 10/03/19 24 10/03/2023 bone densi tomet ry imagi ng rpt Patien t Name: Miguel Angel Burgos Unit #: [id number] Loc: DI Orderi ng Provid er: Rowan Littlejohn Accoun t #: [id number] Status : REG CLI Primar y Care Provid er: Ren Vaz Date of Exam: Sex: M Admiss ion Date: : 1989 Age: 33 Exam(s ) XR DEXA BONE DENSIT Y W/WO ALLISON EXAM: XR DEXA BONE DENSIT Y W/WO ALLISON CLINIC AL HISTOR Y: MALE HYPOGO NADISM E29.1 USE OF SYSTEM IC STEROI DS Z79.52 TECHNI QUE: COMPAR BRENDA: CT CT ABDOME N PELVIS W from [...] GRAYSON: 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 Ordere d By: Rowan Littlejohn CC: ------ ------ ------ ------ ------ ------ ------ ------ ------ ------ ------ ------ - Dictat ed By: Yossi Benitez M.D. 938 Transc ribed By: Yossi Benitez 938 [...] the addres s above. Thank- you. [email or web address] [facility] [address], [place], [address] 10/03/2023 19:17:30 03/21/20 24 08/04/2019 imagi ng/di agnos tic resul t No observ ation record ed. [email or web address] Not Available 03/21 21:46:55 03/21/20 24 08/04/2019 imagi ng/di agnos tic resul t No observ ation record ed. [email or web address] Not Available 03/21 21:46:56 03/21/20 24 08/07/2019 imagi ng/di agnos tic resul t No observ ation record ed. [email or web address] Not Available 03/21 21:46:56 03/21/20 24 08/07/2019 imagi ng/di agnos tic resul t No observ ation record ed. [email or web address] Not Available 03/21 21:46:57 03/21/20 24 08/07/2019 imagi ng/di agnos tic resul t No observ ation record ed. [email or web address] Not Available 03/21 21:46:58 03/21/20 24 08/08/2019 imagi ng/di agnos tic resul t No observ ation record ed. [email or web address] Not Available 03/21 21:46:59 03/21/20 24 08/08/2019 imagi ng/di agnos tic resul t No observ ation record ed. [email or web address] Not Available 03/21 21:47:00 03/21/20 24 03/21/2019 imagi ng/di agnos tic resul t No observ ation record ed. [email or web address] Not Available 03/21 21:47:01 03/21/20 24 03/21/2019 imagi ng/di agnos tic resul t No observ ation record ed. [email or web address] Not Available 03/21 21:47:02 03/21/20 24 03/27/2019 imagi ng/di agnos tic resul t No observ ation record ed. [email or web address] Not Available 03/21 21:47:02 03/21/20 24 08/19/2019 imagi ng/di agnos tic resul t No observ ation record ed. [email or web address] Not Available 03/21 21:47:03 03/21/20 24 11/17/2020 imagi ng/di agnos tic resul t No observ ation record ed. [email or web address] Not Available 03/21 21:47:04 03/21/20 24 03/21/2019 imagi ng/di agnos tic resul t No observ ation record ed. [email or web address] Not Available 03/21 21:48:19 03/21/20 24 08/05/2019 imagi ng/di agnos tic resul t No observ ation record ed. [email or web address] Not Available 03/21 21:48:20 03/21/20 24 08/08/2019 imagi ng/di agnos tic resul t No observ ation record ed. [email or web address] Not Available 03/21 21:48:21 03/21/20 24 08/08/2019 imagi ng/di agnos tic resul t No observ ation record ed. [email or web address] Not Available 03/21 21:48:22 03/21/20 24 09/08/2020 imagi ng/di agnos tic resul t No observ ation record ed. [email or web address] Not Available 03/21 21:48:25 03/21/20 24 09/13/2021 US, abdom en No observ ation record ed. [email or web address] Not Available 03/21 21:48:58 03/21/20 24 08/05/2019 imagi ng/di agnos tic resul t No observ ation record ed. [email or web address] Not Available 03/21 21:53:32 03/21/20 24 08/08/2019 imagi ng/di agnos tic resul t No observ ation record ed. [email or web address] Not Available 03/21 21:53:33 03/21/20 24 08/08/2019 imagi ng/di agnos tic resul t No observ ation record ed. [email or web address] Not Available 03/21 21:53:34 03/21/20 24 08/08/2019 imagi ng/di agnos tic resul t No observ ation record ed. [email or web address] Not Available 03/21 21:53:35 03/21/20 24 08/18/2019 imagi ng/di agnos tic resul t No observ ation record ed. [email or web address] Not Available 03/21 21:53:36 03/21/20 24 08/20/2019 imagi ng/di agnos tic resul t No observ ation record ed. [email or web address] Not Available 03/21 21:53:37 03/21/20 24 09/09/2018 imagi ng/di agnos tic resul t No observ ation record ed. [email or web address] Not Available 03/21 21:53:38 03/21/20 24 09/11/2018 imagi ng/di agnos tic resul t No observ ation record ed. [email or web address] Not Available 03/21 21:53:39 03/21/20 24 03/21/2019 imagi ng/di agnos tic resul t No observ ation record ed. [email or web address] Not Available 03/21 21:53:40 03/21/20 24 03/28/2019 imagi ng/di agnos tic resul t No observ ation record ed. [email or web address] Not Available 03/21 21:53:41 03/21/20 24 03/24/2019 imagi ng/di agnos tic resul t No observ ation record ed. [email or web address] Not Available 03/21 21:53:42 03/21/20 24 07/10/2020 imagi ng/di agnos tic resul t No observ ation record ed. [email or web address] Not Available 03/21 21:53:42 03/21/20 24 11/18/2020 imagi ng/di agnos tic resul t No observ ation record ed. [email or web address] Not Available 03/21 21:53:43 06/13/20 24 06/13/2024 vrad repor t Patien t Name: Miguel Angel Burgos Unit #: [id number] Loc: ER Orderi ng Provid er: Accoun t #: [id number] Status : PRE ER Primar y Care Provid er: Jose More Date of Exam: 02/27 Sex: M : 1989 Age: 33 Exam(s ) PROCED URE INFORM ATION: Exam: CT Head Withou t Contra st Exam date and time: 9:37 PM Age: 33 years old Clinic al indica tion: Other: Breakt hrough sz TECHNI QUE: Imagin g protoc ol: Comput ed tomogr aphy of the head withou t contra st. COMPAR BRENDA: CT HEAD WO 8:38 AM FINDIN GS: Brain: There is a 3.1 cm x 3.0 cm x 2.8 cm relati vely hypoat tenuat ing massli ke findin g in the medial aspect of the right middle crania l fossa on images 49 of series 2 and 36 of series 5. This findin g measur ed 2.6 cm x 2.7 cm x 2.3 cm on the compar brenda exam from October 02. 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 Otherw ise preser elly. No acute intrac ranial hemorr pamela or midlin e shift is seen. There is no acute extra- axial collec tion. Cerebr al ventri cles: There is ex vacuo dilata tion of the anteri or horn of the right latera l ventri ben, as seen on the prior exam. There is no hydroc ephalu s. Focal promin ence of the extra- axial space along the real estate leasing manager ior midlin e of the real estate leasing manager ior fossa presum ably repres ents promin ence of the cister na magna. Parana vel sinuse s: There is patchy mucope rioste al thicke jack in the parana vel sinuse s. There appear s to have been prior sinus surger y with ethmoi dectom y defect s, a middle turbin ectomy on the right, and a medial antros des on the right. Correl ation with surgic al histor y is recomm ended. No air-fl uid levels are seen. Mastoi d air cells: The mastoi d air cells appear well-a erated . Audito ry system : The middle ear caviti es appear clear. Orbita l caviti es: The globes and intrao rbital struct ures appear grossl y intact . Bones: There is an old right fronto tempor al cranio des defect . No acute skull fractu re is seen. There is streak artifa ct from an aneury sm clip at the right anteri or skull base. The adjace nt brain is obscur ed. Soft tissue s: No signif icant scalp lesion is seen. IMPRES GRAYSON: 1. 3.1 cm x 3.0 cm x 2.8 cm round relati vely hypoat tenuat ing massli ke findin g in the medial aspect of the right middle crania l fossa, partia lly obscur ed by artifa ct and not well evalua ivana but increa sed in size since the compar brenda exam from October 03, 2023. Furthe r evalua tion by contra st-enh anced MRI is recomm ended. An enlarg ing neopla sm would be consid ered primar mirela; howeve r, an unusua l large aneury sm is not exclud ed by the CT exam. 2. No acute intrac ranial hemorr pamela or midlin e shift. 3. 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 Dictat ed and Nikhil escalona d by: Jaime Ceballos MD. Orderi ng:Madeleine Ortega MD Access ion#=[id number] Orderfaustino d By: CC: ------ ------ ------ ------ ------ ------ ------ ------ ------ ------ ------ ------ ---- Dictat ed By: Report s vrad [id number] Transc ribed By: Tamica Merge 2136 This is privil eged, confid ential inform ation intend ed only for the provid er named. Any use or distri bution by any person other than this provid er is strict ly prohib ited. If you receiv e this report in error, please notify us immedi ately at [phone] and return the origin al report to us at the addres s above. Thank- you. [email or web address] [facility] [address] , [place], [address] 06/14/2024 13:39:40 06/14/20 24 06/14/2024 CT imagi ng repor t Patigato t Name: Miguel Angel Burgos Unit #: [id number] Loc: ER Orderkarina jacobo Provid er: Diego Winchester M.D. t #: [id number] Status : [facility] ER Primar y Care [facility] er: Jose More Date of Exam: 02/27 Sex: M : 1989 Age: 33 Exam(s ) a CT:CT head wo Exam(s ) CT HEAD WO EXAM: CT HEAD WO CLINIC AL HISTOR Y: Breakt citlali sz. TECHNI QUE: Imagin g Protoc ol: Axial comput ed tomogr aphy images with johnston l and sagitt al reform atted images were create d and review ed COMPAR BRENDA: CT CT HEAD WO from 2023 FINDIN GS: Again noted is eviden ce of prior right fronto tempor al cranio des. There are no skull fractu res. There is streak artifa ct aneury sm clip in the right anteri or skull base which obscur es adjace nt brain tissue . There is no fluid in the visual ized parana vel sinuse s. There is no eviden ce of intrac ranial hemorr pamela. Large area enceph alomal acia in the right fronto tempor al region again noted, unchan ged, and again noted is the associ ated ex vacuo dilata tion of the fronta l horn of the right latera l ventri ben. Also unchan ged lacuna r infarc ts in the anteri or aspect of both thalam i again noted. In the right middle crania l fossa there is a subtle sugges tion of a roundi sh mass densit y measur ing approx imatel y 3 x 2.8 x 2.9 cm which may be signif icant but diffic ult to assess withou t IV contra st. IMPRES GRAYSON: 1. No eviden ce of acute hemorr pamela in this patien t who has aneury sm clip and unchan ged enceph alomal acia in the right fronta l and tempor al lobes. 2. There is a sugges tion of a 3 x 2.8 x 2.9 cm hypode nse massli ke findin g in the medial half of the right middle crania l fossa, partia lly obscur ed by artifa ct but possib ly increa sed in size from the prior study of September 2028.. Recomm end follow -up contra st infuse d MRI study to determ ine if this is neopla stic, aneury sm, or other pathol ogy. Study 1st read by Fannie Alonzo diolog y. RADIAT ION DOSE DELIVE RED: 865.98 mGy.cm Total DLP DATA REPOSI TORY: All CT [...] tion); or iterat bebe recons tructi on. 1208-0 018: Total DLP = 0.00 mGy-cm Ordere d By: Diego Winchester M.D. CC: ------ ------ ------ ------ ------ ------ ------ ------ ------ ------ ------ ------ ---- Dictat ed By: Otto Herrera M.D. [id number] [phone] Transc ribed By: Javier PANG,Rosmery rubin 856 This is privil eged, confid ential inform ation intend ed only for the provid er named. Any use or distri bution by any person other than this provid er is strict ly prohib ited. If you receiv e this report in error, please notify us immedi ately at and return the origin al report to us at the addres s above. Thank- you. INTERFACE [address] [place], [address] 06/14/2024 09:01:48 Result Notes None recorded. Problems Name Problem SNOMED Code Status Onset Date Resolution Date Notes Provider Name and Address Organization Details Recorded Time Saumya hanson 76727247 Active 2023 NAKIA SANTOS [address], [place], [address] , [facility]. 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 2016 Problem Code: H47.20; Problem Code Type: ICD-10; Not Available [facility] 3 04:21:52 Gastriti s 7062464 Active 2016 Problem Code: K29.70; Problem Code Type: ICD-10; Not Available [facility] 3 04:21:52 Urinary incontin ence 660893440 Active 2016 Problem Code: R32; Problem Code Type: ICD-10; Not Available [facility] 3 04:21:52 Senile osteopor osis 20679124 Active 201602/22/20 21 - Comments only - [...] M81.0; Problem Code Type: ICD-10; Not Available [facility] 3 04:21:52 Pure hypergly ceridemi a 402778803 Active 201602/27/20 22 - Comments only - Ren Vaz MD - tolerati ng statin. However with elevated LFTs could consider cutting statin dose to see if helps LFTs. 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 See above. 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 Cycloben zaprine no longer effectiv e. Will change to baclofen 10mg TID. escrow manager will call in 1-2 weeks to report effectiv eness. Pain may be influenc ing increase d agitatio n and poor sleep. Problem Code: M24.50; Problem Code Type: ICD-10; Not Available [facility] 3 04:21:53 Amnesia 66517909 Active 2016 Problem Code: R41.3; Problem Code Type: ICD-10; Not Available [facility] 3 04:21:53 Hemipleg ia 43139953 Active 201602/22/20 21 - Comments only - Ren Vaz MD - Encourag ing increase in activty. I agree with PT. Problem Code: G81.90; Problem Code Type: ICD-10; Not Available [facility] 3 04:21:54 Red blood cell finding 489696844 Active 2017 Problem Code: R71.8; Problem Code Type: ICD-10; Not Available [facility] 3 04:21:54 Retentio n of urine 931942485 Active 201805/18/20 19 - Comments only - Subha Colon APRN - Suscepti ble to UTIs. They will return urine sample for testing. Problem Code: R33.9; Problem Code Type: ICD-10; Not Available [facility] 3 04:21:54 Restless ness and agitatio n 764503667 Active 2018 Problem Code: R45.1; Problem Code Type: ICD-10; Not Available [facility] 3 04:21:54 Seizure 23710545 Active 2018 Problem Code: R56.9; Problem Code Type: ICD-10; Not Available [facility] 3 04:21:54 Dyspnea 821730825 Completed 201806/01/2019 Problem Code: R06.02; Problem Code Type: ICD-10; Not Available [facility] 3 04:21:54 Acute upper respirat ory infectio n 73440045 Completed 201806/01/2019 05/18/20 19 - Comments only - 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 Pt is quite suscepti ble to both respirat ory and urinary tract infectio ns. Will start doxycycl ine to cover for possible pneumoni a. Advised to increase use of nebulize r to TID. Problem Code: J06.9; Problem Code Type: ICD-10; Not Available [facility] 3 04:21:55 Steatosi s of liver 261383332 Active 201903/03/20 23 - Comments only - Ren Vaz MD - Improved last year with weight loss. REcheck CBC/CMP with labs Problem Code: K76.0; Problem Code Type: ICD-10; Not Available [facility] 3 04:21:55 Adult health examinat [...] Z00.00; Problem Code Type: ICD-10; Not Available [facility] 3 04:21:55 Bradycar hossein 62933455 Completed 201909/01/2019 08/25/19 20 - Comments only - Ren Vaz MD - Resolved after stopping metoprol ol. BP still okay, no hard indicati on for metoprol ol, so continue off this medicati on. Problem Code: R00.1; Problem Code Type: ICD-10; Not Available [facility] 3 04:21:55 Urticari a 103103872 Active 201908/14/19 21 - Comments only - Ren Vaz MD - irmpoved . continue higher dose H2 gui for now. 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 We discusse d I iron stores actually normal, low TIBC suggests chronic disease cause. Continue to follow. Problem Code: D64.9; Problem Code Type: ICD-10; Not Available [facility] 3 04:21:56 Hypo-osm olality and or hyponatr emia 708589509 Active 202002/22/20 21 - Comments only - Ren Vaz MD - Doing well on fluid restrict ion, continue . 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 Problem Code: E23.2; Problem Code Type: ICD-10; Not Available [facility] 3 04:21:57 Hypopitu itarism 03195630 Active 2016 Problem Code: E23.0; Problem Code Type: ICD-10; Not Available [facility] 3 04:21:57 Hypothyr oidism 66839649 Active 201602/22/20 21 - Comments only - Ren Vaz MD - FT4 at goal, continue current supplume ntation Problem Code: E03.8; Problem Code Type: ICD-10; Not Available [facility] 3 04:21:57 History and physical examinat ion, administ yamil Completed 201807/09/2019 Problem Code: Z02.89; Problem Code Type: ICD-10; Not Available [facility] 3 04:21:58 Disorder of eye 309632024 Completed 201804/05/2019 Problem Code: H44.89; Problem Code Type: ICD-10; Not Available [facility] 3 04:21:59 Pain of left knee joint 66714965874 4107 Completed 201707/09/2019 Problem Code: M25.562; Problem Code Type: ICD-10; Not Available [facility] 3 04:21:59 Bleeding 811937070 Completed 202002/21/2021 Problem Code: R58; Problem Code Type: ICD-10; Not Available [facility] 3 04:21:59 Fever 031033680 Completed 201804/05/2019 Problem Code: R50.9; Problem Code Type: ICD-10; Not Available [facility] 3 04:21:59 Family history of diabetes mellitus 237394931 Completed 201607/09/2019 Problem Code: Z83.3; Problem Code Type: ICD-10; Not Available [facility] 3 04:22:00 Fever 286755368 Completed 201805/24/2019 Problem Code: R50.9; Problem Code Type: ICD-10; Not Available [facility] 3 04:22:00 Gastroes ophageal reflux disease without esophagi tis 230286126 Completed 201604/02/2023 Problem Code: K21.9; Problem Code Type: ICD-10; Not Available [facility] 3 04:22:00 Wheezing 97099001 Completed 201709/18/2018 Problem Code: R06.2; Problem Code Type: ICD-10; Not Available [facility] 3 04:22:00 High enzyme level in serum 538800713 Completed 201904/02/2023 02/27/20 22 - Comments only [...] R74.8; Problem Code Type: ICD-10; Not Available [facility] 3 04:22:01 Body mass index 30+ - obesity 295459060 Completed 202004/02/2023 Problem Code: Z68.34; Problem Code Type: ICD-10; Not Available [facility] 3 04:22:01 Disorder of intestin e 60739616 Completed 202008/14/2020 Problem Code: K63.9; Problem Code Type: ICD-10; Not Available [facility] 3 04:22:01 Screenin g for disorder Completed 201809/18/2018 Problem Code: Z13.9; Problem Code Type: ICD-10; Not Available [facility] 3 04:22:01 Spasm 22642826 Completed 201704/02/2023 08/25/19 20 - Comments only - Ren Vaz MD - Ongoing problem since CVA. Has neuro consult in october to consiide botox. For now try higher dose lorazepa m along with baclofen . Problem Code: R25.2; Problem Code Type: ICD-10; Not Available [facility] 3 04:22:02 Pain of right knee joint 49445137269 4100 Completed 201704/30/2018 Problem Code: M25.561; Problem Code Type: ICD-10; Not Available [facility] 3 04:22:02 Cough 37968169 Completed 201709/08/2019 Problem Code: R05; Problem Code Type: ICD-10; Not Available [facility] 3 04:22:02 Iron deficien cy anemia 16852163 Completed 201704/02/2023 Problem Code: D50.8; Problem Code Type: ICD-10; NAKIA SANTOS [address], [place], [address] , [facility]. 4 09:14:59 Counseli odalis Completed 201812/08/2018 Problem Code: Z71.89; Problem Code Type: ICD-10; Not Available [facility] 3 04:22:03 Disorder of tooth developm ent 473633540 Completed 201808/14/2020 Problem Code: K00.9; Problem Code Type: ICD-10; Not Available [facility] 3 04:22:03 Hypocalc emia 1354882 Completed 201910/25/2019 Problem Code: E83.51; Problem Code Type: ICD-10; Not Available [facility] 3 04:22:03 Hyperosm olality and or hypernat remia 771399812 Completed 201908/14/2020 Problem Code: E87.0; Problem Code Type: ICD-10; Not Available [facility] 3 04:22:04 Testicul ar hypofunc tion 336954859 Completed 201604/02/2023 Problem Code: E29.1; Problem Code Type: ICD-10; Not Available [facility] 3 04:22:04 Seasonal allergic rhinitis 278152036 Completed 201904/02/2023 10/25/19 20 - Comments only - Ren Vaz MD - try H1 block Problem Code: J30.2; Problem Code Type: ICD-10; Not Available [facility] 3 04:22:05 Wheezing 67486798 Completed 201805/24/2019 Problem Code: R06.2; Problem Code Type: ICD-10; Not Available [facility] 3 04:22:05 Seizure 53583851 Completed 201607/09/2019 Problem Code: R56.9; Problem Code Type: ICD-10; Not Available [facility] 3 04:22:05 Chronic excoriat ion of skin 444140250 Active [address], [place], [address] , [facility] 4 09:12:56 Non-alco holic fatty liver disease Active [address], [place], [address] , [facility] 4 09:14:30 Iron deficien cy anemia 72596328 Active 2023 Problem Code: D50.8; Problem Code Type: ICD-10; NAKIA SANTOS Dr, [facility] [address] , [facility] 4 09:14:59 Pruritic disorder 077803165 Active [address], [facility] [address] , [facility] 4 09:21:10 Seizure disorder 083086219 Active [address], [facility] [address] , [facility] 4 10:59:32 Finding of frequenc y of urinatio n 108407143 Active [address], [facility] [address] , [facility] 4 11:23:00 Notes:*Problem Name: Blindne ss - both eyes *Problem Status: active *Comments: *Problem Code: H54.0 *Problem Code Type: ICD-10 *Note Date: 11/11/2016 Problem Notes None recorded. Procedures Surgical History None recorded. Imaging Results Imaging Date Name Status LastModified by Organization Details LastModified Time 10/03/2023 CT imaging report completed [email or web address] [place], [address] 10/08/2023 14:54:07 10/03/2023 CT imaging report completed [email or web address] [address] [place], [address] 10/03/2023 19:17:29 10/03/2023 bone densitometry imaging rpt completed [email or web address] [address] [place], [address] 10/03/2023 19:17:30 08/04/2019 imaging/diagnost ic result completed Information not available 03/21/2024 21:46:55 08/04/2019 imaging/diagnost ic result completed Information not available 03/21/2024 21:46:56 08/07/2019 imaging/diagnost ic result completed Information not available 03/21/2024 21:46:56 08/07/2019 imaging/diagnost ic result completed Information not available 03/21/2024 21:46:57 08/07/2019 imaging/diagnost ic result completed Information not available 03/21/2024 21:46:58 08/08/2019 imaging/diagnost ic result completed Information not available 03/21/2024 21:46:59 08/08/2019 imaging/diagnost ic result completed Information not available 03/21/2024 21:47:00 03/21/2019 imaging/diagnost ic result completed Information not available 03/21/2024 21:47:01 03/21/2019 imaging/diagnost ic result completed Information not available 03/21/2024 21:47:02 03/27/2019 imaging/diagnost ic result completed Information not available 03/21/2024 21:47:02 08/19/2019 imaging/diagnost ic result completed Information not available 03/21/2024 21:47:03 11/17/2020 imaging/diagnost ic result completed Information not available 03/21/2024 21:47:04 03/21/2019 imaging/diagnost ic result completed Information not available 03/21/2024 21:48:19 08/05/2019 imaging/diagnost ic result completed Information not available 03/21/2024 21:48:20 08/08/2019 imaging/diagnost ic result completed Information not available 03/21/2024 21:48:21 08/08/2019 imaging/diagnost ic result completed Information not available 03/21/2024 21:48:22 09/08/2020 imaging/diagnost ic result completed Information not available 03/21/2024 21:48:25 09/13/2021 US, abdomen completed Information n ot available 03/21/2024 21:48:58 08/05/2019 imaging/diagnost ic result completed Information not available 03/21/2024 21:53:32 08/08/2019 imaging/diagnost ic result completed Information not available 03/21/2024 21:53:33 08/08/2019 imaging/diagnost ic result completed Information not available 03/21/2024 21:53:34 08/08/2019 imaging/diagnost ic result completed Information not available 03/21/2024 21:53:35 08/18/2019 imaging/diagnost ic result completed Information not available 03/21/2024 21:53:36 08/20/2019 imaging/diagnost ic result completed Information not available 03/21/2024 21:53:37 09/09/2018 imaging/diagnost ic result completed Information not available 03/21/2024 21:53:38 09/11/2018 imaging/diagnost ic result completed Information not available 03/21/2024 21:53:39 03/21/2019 imaging/diagnost ic result completed Information not available 03/21/2024 21:53:40 03/28/2019 imaging/diagnost ic result completed Information not available 03/21/2024 21:53:41 03/24/2019 imaging/diagnost ic result completed Information not available 03/21/2024 21:53:42 07/10/2020 imaging/diagnost ic result completed Information not available 03/21/2024 21:53:42 11/18/2020 imaging/diagnost ic result completed Information not available 03/21/2024 21:53:43 06/13/2024 vrad report completed [email or web address] [place], [address] 06/14/2024 13:39:40 06/14/2024 CT imaging report completed INTERFACE [address] [place], [address] 06/14/2024 09:01:48 Procedure Notes None recorded. Medical Equipment None Reported. Allergies Allergen ID Allergen Name Allergen Category Reaction Reaction Severity Criticality Documentation Date Start Date Code Code System Note Provider Name and Address Organization Details Recorded Time 88915 Lopid medicatio n Not available Not available Not available 05/04/2024 9 RxNorm Ashley England MA [facility], [place] [facility] 10:58:41 Medications Name Sig Start Date Stop Date [...] tablet by mouth three times a day 2023 active Not Available Not Available Not Avai lable levothyro xine 75 mcg tablet TAKE 3 [...] completed Not Available Not Available Not Available Radhaatul Sherley s 15 %-10 % topical cream 1 [...] Not Available Not Available Not Avai lable cephalexi n 500 mg capsule Take 1 capsule every 6 hours by oral route for 7 days. 06/28 completed Not Available Not Available Not Available levothyro xine 150 mcg tablet Take 1 [...] lable hydroxyzi ne HCl 25 mg tablet TAKE 1 TABLET BY MOUTH TWICE A DAY NEEDED AND TAKE 1 TO 2 TABLETS AT NIGHT NEEDED FOR PRUITIS NOT TO EXCEED 4 TABLET\ 2023 active Not Available Not Available Not Avai lable levothyro xine 200 mcg tablet Take 1 tablet by mouth once a day EVERY MORNING 2023 active Not Available Not Available Not Avai lable mupirocin 2 % topical ointment APPLY TOPICALL Y TO SORES ON SHOULDER /UPPER LEGS THREE TIMES A DAY NEEDED FOR INFECTTI ON SIGNS 06/28 completed Not Available Not Available Not Available metoprolo l succinate ER 25 mg tablet,ex [...] carbonate 500 mg) chewable tablet 1 tablet everyday at 5 pm active Not Available Not Available No t Available loratadin e 10 mg tablet Take 1 [...] 1 1/2 by mouth in the evening. active Not Available Not Available No t Available Bactrim DS 800 mg-160 mg tablet Take [...] AT BEDTIME; FOLLOW UP IN 1-2 MONTHS 06/28 completed Not Available Not Available Not Available Nebulizer Use as directed for wheezing 2017 active Not Available Not Available Not Avai lable Bengay Ultra Strength Use as needed for muscle aches active Not Available Not Available No t Available Vitamin D3 10 mcg (400 unit) capsule Take 1 tablet by mouth twice a day. 06/05 completed Not Available Not Available Not Available magnesium gluconate 27 mg magnesium (500 mg) tablet take twice daily 2023 active Not Available Not Available Not Avai lable Seroquel 50 mg tablet Take 5 tablets by mouth daily at bedtime. Take one tablet by mouth twice a day as needed. 2016 active Not Available Not Available Not Avai lable BAG BALM As needed for chronic wound picking active Not Available Not Available No t Available ferrous gluconate 324 mg (38 mg iron) tablet Take 1 tablet by mouth every other day take with meal in evening (not in morning after thyroid) 2023 active Not Available Not Available Not Avai lable acetylcys teine 600 mg capsule Take 1 capsule twice a day by oral route. 06/28 completed Not Available Not Available Not Available quetiapin e ER 200 mg tablet,ex tended release 24 hr Take 1 tablet every day by oral route. 2023 active Not Available Not Available Not Avdoroteo garcia Dx: G81.90 - replacem ent for broken one 03/03 completed Not Available Not Available Not Available quetiapin e ER 150 mg tablet,ex tended release 24 hr 04/21 completed Not Available Not Available Not Available cholecalc [...] completed Not Available Not Available Not Available Hetlioz 20 mg capsule TAKE 1 CAPSULE (20 MG) BY ORAL ROUTE each night active Not Available Not Available No t Available melatonin 10 mg-lemon balm leaf extract [...] DateTime 4 167.157 4 cm 34.9 kg/m2 36915.3 6 g 97.3 [degF] 100 % 100 % 100 /min 120 mm[Hg] 82 mm[Hg] KRISTYN SINGH MA [facility] 4 08:40:28 Date Recorded Body height Body mass index (BMI) Body weight Body temperature Oxygen saturation Oxygen saturation in Arterial blood by Pulse oximetry Heart rate Systolic blood pressure Diastolic blood pressure Provider Name and Address Organization Details Last Updated DateTime 4 167.157 4 cm 33.5 kg/m2 05593.1 8 g 97.7 [degF] 96 % 96 % 83 /min 118 mm[Hg] 82 mm[Hg] KRISTYN SINGH MA [facility] 4 11:07:26 Date Recorded Body height Body mass index (BMI) Body weight Body temperature Oxygen saturation Oxygen saturation in Arterial blood by Pulse oximetry Heart rate Respiratory rate Systolic blood pressure Diastolic blood pressure Provider Name and Address Organization Details Last Updated DateTime 4 167.157 4 cm 33.3 kg/m2 12446.4 4 g 97.7 [degF] 97 % 97 % 92 /min 18 /min 110 mm[Hg] 76 mm[Hg] Ashley England MA [facility] 4 10:58:12 Date Recorded Body height Body mass index (BMI) Body weight Body temperature Oxygen saturation Oxygen saturation in Arterial blood by Pulse oximetry Heart rate Systolic blood pressure Diastolic blood pressure Provider Name and Address Organization Details Last Updated DateTime 4 167.157 4 cm 34.3 kg/m2 88491.9 9 g 97.2 [degF] 97 % 97 % 80 /min 128 mm[Hg] 70 mm[Hg] KRISTYN SINGH MA [facility] 4 11:35:36 Social History Question Answer Notes LastModified by Organizat ion Details LastModified Time Tobacco Smoking Status Never Smoker Ashley England MA [facility], [facility] 05/04/2024 11:00:43 What Was The Date Of Your Most Recent Tobacco Screening? 05/04/2024 [email or web address] Information not available 05/04/2024 Has Tobacco Cessation Counseling Been Provided? Yes Information not available 05/04/2024 On What Date Was Tobacco Cessation Counseling Provided? 05/04/2024 [email or web address] Information not available 05/04/2024 Sex: Male Functional Status None recorded. Mental Status None recorded. Family History Nothing Reported Notes:*Problem: Mom had trever l failure Diabetes in the family Medical History No medical history recorded. Immunizations Vaccine Type Date Status Note Provider Nam e and Address Organization Details Recorded Time MMR 0 completed Not Available [facility] 05/16/2023 04:39:45 MMR 2 completed Not Available [facility] 05/16/2023 04:39:46 Tdap 1 completed Not Available [facility] 05/16/2023 04:39:47 Tdap 1 completed Not Available [facility] 05/16/2023 04:39:48 Influenza, split virus, quadrivalent, PF 9 completed Not Available [facility] 05/16/2023 04:39:48 Hib, unspecified formulation 1 completed Not Available [facility] 05/16/2023 04:39:48 Hib, unspecified formulation 1 completed Not Available [facility] 05/16/2023 04:39:49 Hib, unspecified formulation 2 completed Not Available [facility] 05/16/2023 04:39:49 Hib, unspecified formulation 1 completed Not Available [facility] 05/16/2023 04:39:49 DTaP 1 completed Not Available [facility] 05/16/2023 04:39:50 DTaP 1 completed Not Available [facility] 05/16/2023 04:39:50 DTaP 6 completed Not Available [facility] 05/16/2023 04:39:50 DTaP 1 completed Not Available [facility] 05/16/2023 04:39:50 DTaP 2 completed Not Available [facility] 05/16/2023 04:39:50 COVID-19, mRNA, LNP-S, PF, 100 mcg/0.5mL dose or 50 mcg/0.25mL dose 1 completed Not Available [facility] 05/16/2023 04:39:50 COVID-19, mRNA, LNP-S, PF, 100 mcg/0.5mL dose or 50 mcg/0.25mL dose 2 completed Not Available [facility] 05/16/2023 04:39:51 SARS-COV-2 (COVID-19) vaccine, UNSPECIFIED 1 completed Not Available [facility] 05/16/2023 04:39:52 SARS-COV-2 (COVID-19) vaccine, UNSPECIFIED 1 completed Not Available [facility] 05/16/2023 04:39:52 Hep B, unspecified formulation 3 completed Not Available [facility] 05/16/2023 04:39:52 Hep B, unspecified formulation 3 completed Not Available [facility] 05/16/2023 04:39:52 Hep B, unspecified formulation 3 completed Not Available [facility] 05/16/2023 04:39:52 influenza, unspecified formulation 4 completed Not Available [facility] 05/16/2023 04:39:53 polio, unspecified formulation 1 completed Not Available [facility] 05/16/2023 04:39:53 polio, unspecified formulation 1 completed Not Available [facility] 05/16/2023 04:39:54 polio, unspecified formulation 6 completed Not Available [facility] 05/16/2023 04:39:54 polio, unspecified formulation 1 completed Not Available [facility] 05/16/2023 04:39:54 polio, unspecified formulation 2 completed Not Available [facility] 05/16/2023 04:39:54 rabies, unspecified formulation 5 completed Not Available [facility] 05/16/2023 04:39:55 rabies, unspecified formulation 5 completed Not Available [facility] 05/16/2023 04:39:55 Influenza, split virus, trivalent, PF 4 completed NAKIA SANTOS [address], [place], [address], [facility] 06/28/2024 12:55:00 Influenza, split virus, quadrivalent, PF 3 completed Not Available [facility] 07/18/2023 05:33:06 COVID-19, mRNA, LNP-S, PF, kota-sucrose, 30 mcg/0.3 mL 3 completed Not Available [facility] 07/18/2023 05:33:07 Past Encounters Encounter ID Performer Location Encounter Start Date Encounter Closed Date Diagnosis/Indication Diagnosis SNOMED-CT Code Diagnosis ICD10 Code [id number] NAKIA SANTOS [facility] [address] [place] [address] 09/18/2023 08:30:46 09/18/2023 09:43:31 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 Chronic ex coriation of skin 746590718 T14.8XXA Non-alcoho lic fatty liver disease 5791508689 K76.0 Iron defic iency anemia 19870651 D50.9 Pruritic disorder 871731 002 L29.9 [id number] NAKIA SANTOS [facility] [address] [place] [address] 03/05/2024 10:55:01 03/05/2024 12:03:04 Finding of frequency of urination 420195551 R35.0 Restlessne ss and agitation 561013061 R45.1 Adult heal th examination 869777353 Z00.00 Hyperlipid emia screening 819300770 Z13.220 Hypothyroidism 09647193 E03.9 [id number] LAURIE RODGERS [address] [place] [address] 05/04/2024 09:55:01 05/04/2024 11:28:26 Cellulitis of right lower limb [id number] 4308297 L03.346 [id number] [facility] [address] [place] [address] 06/28/2024 11:23:42 06/28/2024 12:54:45 Hyponatremia 35222556 E87.1 Active or passive immunization 278336999 Z23 Health Concerns Section Related Observation LastModified by Organization Detai ls LastModified Time None Recorded Concern Status LastModified by Organization Details LastModified Time None Recorded Advance Directives Directive None Recorded Payers Encounter Date Sequence Insurance Name Policy Number Policy Soliman Covered Member ID Soliman Member ID Guarantor Name 09/18/2023 1 [facility] (MEDICAID) Miguel Angel Judy Barrup [id number] Miguel Angel Judy Sweetup 03/05/2024 1 [facility] (MEDICAID) Miguel Angel D Barrup [id number] Miguel Angel D Barrup 05/04/2024 1 [facility] (MEDICAID) Miguel Angel D Barrup [id number] Miguel Angel D Barrup Notes Date Note Type Note Provider Name and Address Organization Details Recorded Time 09/18/2023 text/html Pt. 33-M, with P MH notable for cognitive impairment, left hemiparesis, cortical [...] weeks ago. He had a NAKIA SANTOS [address], [place], [address], [facility]. 09/18/2023 10:32:35 03/05/2024 text/html Pt. 33-M, with P notable for cognitive impairment, left hemiparesis, cortical [...] denies fevers, chills, night sweats, and unexplained headaches.Ears: Pt. denies ear pain, discharge, loss of hearing.Eyes: No changes reportedNose: No signs of infection or bloody noseMouth: Pt. denies any mouth sores, dental complaints, dry mouth.GI: No choking episodes, pt denies abdominal pain. No change in bowel pattern per caregiver.Pulmonary: Pt. denies any shortness of breath, cough, wheezing.Cardiac: Pt. denies any chest pain,: occasional caregiver endorses baseline of frequencyMSK: Pt. denies any MSK complaints.Skin:Skin improved over prior per caregiver reportNeuro: No loss of function apparent to caregiver in ambulation status.Endocrine: Caregiver denies new pattern of cold or hot manifestation in patientHematologic: No frequent bleeding, epistaxis, easy bruisability reported by caregiver. NAKIA SANTOS [address], [place], [address], [facility]. 03/05/2024 12:22:56 05/04/2024 text/html Patient with pos sible abscess/boil to posterior R thigh, first noticed 2 nights ago, has become larger is more tender.Does have a small head with no visible drainage per caregivers at correction.Has had no fevers.Has had past skin infection to axilla. No recent antibiotic use. No history of drug resistant skin infections. LAURIE RODGERS [address], [place], [address], [facility]. 05/04/2024 16:17:55
--- OUTSIDE RECORDS SUMMARY | 2024-06-28 13:47 | XMS_ITS | Encounter Summary ---
Author Organization [facility] Address [address] [place] [address] Care Team Providers Care Medicare Insurance Specialist Name Role Phone Ren Vaz MD Primary Care Provider [phone] Reason for Visit * Reason Onset Date Comments Labs Only 04/11/2020 Encounter Details Date Type Department Care Team (Late st Contact Info) Description 04/11/2020 Telephone [facility] Endocrinology - [facility] [address] [place] [address] Wilder Zaidi, DO 62 [facility] [address] [place] [address] Labs Only Social History Tobacco [...] Recorded Sex Assigned at Not on file Legal Sex Male 18:35 EST Gender Identity Not on file Sexual Orientation Not on file documented as of this encounter Functional Status * Is this person blind or does he/she have serious difficulty seeing even when wearing glasses? Answer Date of Assessment Author Yes 10/01/2018 13:33 EDT * Because of a physical, mental, or emotional condition, does this person have difficulty doing errands alone such as visiting a doctor's office or shopping? Answer Date of Assessment Author Yes 10/01/2018 13:33 EDT documented as of this encounter Mental Status * Because of a physical, mental, or emotional condition, does this person have serious difficulty concentrating, remembering, or making decisions? Answer Entry Date Author Yes 10/01/2018 13:33 EDT [place], RN documented in this encounter Miscellaneous Notes * Telephone Encounter - Lesley Jeffrey RN - 04/11/2020 1527 EDT Lab orders entered by Dr. Zaidi have been electronically faxed 04/11/20 15:[address] [facility] at [phone]. Lab orders entered by Dr. Zaidi have been electronically faxed 04/11/20 15:31 to [facility] at [phone]. LESLEY COURTNEY RN 04/11/2020 15:31 * Telephone Encounter - Lesley Jeffrey RN - 04/11/2020 1229 EDT Returning call 04/11/20 12:29 Spoke to : Mavis Per caller, patient is to have sodium checked every 3 months. Caller does not have the order. Would need the order faxed to her or hospital. This promotion writer will be faxing it to both fax numbers once we have the answer from the provider. Mavis's fax number : [phone] [facility] : [phone] (fax) LESLEY COURTNEY RN 04/11/2020 12:33 * Telephone Encounter - Mirna Ervin - 04/11/[address] [facility] is calling to ask if orders have been put in for patient's blood work. Patient is there now. Director Of Planning tried to reach nurse but was unable. 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
--- OUTSIDE RECORDS SUMMARY | 2024-06-28 13:47 | XMS_ITS | Encounter Summary ---
Author Organization [facility] Address [address] [place] [address] Care Team Providers Care Ticket Sales Agent Name Role Phone Ren Vaz MD Primary Care Provider [phone] Reason for Visit * Reason Onset Date Comments Other 06/21/2024 Needs permission to discuss Follow-up 06/21/2024 Encounter Details Date Type Department Care Team (Late st Contact Info) Description 06/21/2024 Telephone [facility] Endocrinology - [facility] [address] [place] [address] Wilder Zaidi, 62 [facility] [address] [place] [address] Other (Needs permission to discuss); Follow-up Social History Tobacco Use Types Packs/Day [...] encounter Miscellaneous Notes * Telephone Encounter - Jeannette Coates - 06/22/2024 1006 EST Spoke with pt's sister. Coordinated appt for Dr. Zaidi. Asked Carlos Alberto to schedule due to override. * Telephone Encounter - Jessika Mart - 06/22/2024 1000 EST Patient's sister called back to confirm patient can do 07/[address] Zaidi. Please call Bettina back to schedule [phone] * Telephone Encounter - Mavis Franco RN - 06/21/2024 1624 EST Images from the original note were not included. Spoke with Prachi at [facility]. Fax will be sent of document stating June Burgos is legal guardian. Fax received. Spoke to Bettina who was distraught after learning that the patient no longer is being seen by Dr. Zaidi. Patient does not want patient seeing Dr. Littlejohn. Patient said she doesn't understand why shegot taking off the release list since she is Miguel Angel's legal guardian. Bettina would like to reschedule appointment with Dr. Zaidi. Bettina plans on attending the visit. Bettina would like Dr. Zaidi to review Miguel Angel's file for guidance on fluid intake and sodium checks. Also mentions that patient is off Androgel too which she never consented to. Patient has appointment coming up with the group [facility] in regarding lack of communication. Bettina requested new medical release forms to be mailed to her. Bettina reports Miguel Angel just got out of the ICU today. Bettina Before [address] [place] [address] Routing to Salud Burton, Dr. Zaidi, and [facility] carrie. MAVIS FRANCO RN 06/21/2024 17:02 * Telephone Encounter - Lucille Carmichael - 06/21/2024 1433 EST Bettina Aubrey (sister) calling. Asking if patient is still seeing Dr Zaidi/when is next appt, etc. This person is not listed on his permission to discuss and science writer could not give her any answers. Bettina because annoyed and asked that Dr. Zaidi call and speak with her directly. documented in this encounter Plan of Treatment Upcoming Encounters Date Type Department Care Team (Late st Contact Info) Description 07/06/2024 13:40 EST Office Visit [facility] Endocrinology - [address] [phone] Wilder Zaidi, DO [address] [place] [address] 09/09/2024 10:20 EST Office Visit [facility] Endocrinology - [address] [id number] Day Littlejohn MD PhD [address] [place] [address] documented as of this encounter Visit Diagnoses Not on filedocumented in this encounter Care Teams Ticket Sales Agent Relationship Specialty Start Date End Date Ren Vaz MD [facility] [place] [address] PCP - General 09/30/18 documented as of this encounter
--- OUTSIDE RECORDS SUMMARY | 2024-06-28 13:47 | XMS_ITS | Encounter Summary ---
Author Organization [facility] Address [address] [place] [address] Care Team Providers Care Nuclear Auxiliary Operator Name Role Phone Ren Vaz MD Primary Care Provider [phone] Reason for Visit * Reason Onset Date Comments Medication Questions 11/09/2020 Encounter Details Date Type Department Care Team (Late st Contact Info) Description 11/09/2020 Telephone [facility] Endocrinology - [facility] [address] [place] [address] Wilder Zaidi, 62 [facility] [address] [place] [address] Medication Questions Social History Tobacco [...] - 11/09/2020 1432 EDT Call to: Prachi manager meeting Relayed Dr. Zaidi's message: Wilder Zaidi DO Note Testosterone is [...] 1123 EDT 11/26/[address] Zaidi There was some increase in agitation, biting himself and rolling over his own foot with his wheelchair on occasion. He also had been more aggressive with staff. His testosterone was discontinued. Noother changes have been made in his medication. * Telephone Encounter - Sanjuana Braxton - 11/09/2020 1107 EDT Caller is the casework specialist for patient, advising that the patient saw [...] Info) Description 07/06/2024 13:40 EST Office Visit [facility] Endocrinology - [address] [phone] Wilder Zaidi, 62 [facility] [address] [place] [address] 09/09/2024 10:20 EST Office Visit [facility] Endocrinology - [address] [phone] Day Littlejohn MD PhD [address] [facility] [address] [place] [phone] documented as of this encounter Visit Diagnoses Not on filedocumented in this encounter Care Teams Nuclear Auxiliary Operator Relationship Specialty Start Date End Date Ren Vaz MD [address] [place] [address] PCP - General 09/30/18 documented as of this encounter
--- OUTSIDE RECORDS SUMMARY | 2024-06-28 13:47 | XMS_ITS | Encounter Summary ---
Author Organization [facility] Address [address] [place] [address] Care Team Providers Care Data Processor Name Role Phone Ren Vaz MD Primary Care Provider [phone] Reason for Visit * Reason Onset Date Comments Follow-up 10/20/2023 Paperwork request 10/20/2023 Encounter Details Date Type Department Care Team (Late st Contact Info) Description 10/20/2023 Telephone [facility] Endocrinology - [address] [address] Day Littlejohn MD PhD [address] [place] [address] [place] [phone] Follow-up; Paperwork request Social History Tobacco [...] EDT Printed and faxed MICKEY notes to [facility] Routing to Dr. Littlejohn re: f/u about DXA and head CT scan results. MAVIS FRANCO RN 10/21/2023 13:52 * Telephone Encounter - Laura Freeman - 10/20/2023 1121 EDT Endocrinology Incoming Call Reason for call: follow up and records Labs Request/Results If known, which test are you inquiring about? Head scan and bone density Where was your test performed (which lab)? [facility] What date was the test performed? september Next Appointment: 03/04/2024 Last Office Visit: 09/04/2023 Day Littlejohn MD PhD Last Telehealth Encounter: Visit date not found Send as Routine Priority to [facility] Nurse Rito oDugherty calling, asking for follow up after having the head CT and DEXA done. She is also requesting a signed copy of the office visit dated 09/04/23 for the pts records at the facility documented in this encounter Plan of Treatment Upcoming Encounters Date Type Department Care Team (Late st Contact Info) Description 07/06/2024 13:40 EST Office Visit [facility] Endocrinology - [place] [address] [place] [address] Wilder Zaidi, DO 62 [facility] [address] [place] [phone] 09/09/2024 10:20 EST Office Visit [facility] Endocrinology - [facility] [address] [place] [address] Day Littlejohn MD PhD [address] [phone] documented as of this encounter Visit Diagnoses Not on filedocumented in this encounter Care Teams Data Processor Relationship Specialty Start Date End Date [place] [address] PCP - General 09/30/18 documented as of this encounter
--- OUTSIDE RECORDS SUMMARY | 2024-06-28 13:47 | XMS_ITS | Encounter Summary ---
Author Organization [facility] Address [address] [place] [address] Care Team Providers Care Crisis Clinician Name Role Phone Ren Vaz MD Primary Care Provider [phone] Reason for Referral * (Routine/Next Available) - Receiving Office to Obtain Authorization Specialty Diagnoses / Procedures Referred By Contac t Referred To Contact Procedures XR OUTSIDE IMAGES DEXA Imaging, External Referral ID Status Reason Start Date Expiration Date Visits Requested Visits Authorized [id number] Receiving Office to Obtain Authorization 10/03/2023 1 1 Reason for Visit * (Routine/Next Available) - Receiving Office to Obtain Authorization Specialty Diagnoses / Procedures Referred By Contac t Referred To Contact Procedures XR OUTSIDE IMAGES DEXA Imaging, External Referral ID Status Reason Start Date Expiration Date Visits Requested Visits Authorized [id number] Receiving Office to Obtain Authorization 10/03/2023 1 1 Encounter Details Date Type Department Care Team (Latest Contact Info) Description 10/03/2023 15:30 EDT - 10/03/2023 23:59 EDT Hospital Encounter [facility] Radiology - [place] [address] [place], [place] [phone] Discharge Disposition: Home or Self Care Social [...] [place], RN documented in this encounter Medications at Time of Discharge acetaminophen (TYLENOL) 325 mg tablet Take 200 [...] 1 Tablet by mouth daily with breakfast. HYDROCODONE/ACETAMIN OPHEN (VICODIN ORAL) Take 5 mg by mouth. [...] at bedtime. 08/24/2010 QUEtiapine (SEROQUEL) 50 mg tabletIndications:Go nadotropin deficiency (HCC-CMS),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HCC-CMS),Panhypopit uitarism (HCC-CMS),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HCC-CMS),Secondary hypothyroidism Take 25 mg by mouth daily. Takes at 25 mg at noon sennosides (SENEXON ORAL) Take by mouth. testosterone (ANDROGEL) 1 % (50 mg/5 gram) gel packet Apply 5 g topically daily. traZODone (DESYREL) 50 mg tabletIndications:Go nadotropin deficiency (HCC-CMS),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HCC-CMS),Panhypopit uitarism (HCC-CMS),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HCC-CMS),Secondary hypothyroidism Take [...] Info) Description 07/06/2024 13:40 EST Office Visit [facility] Endocrinology - [address] [phone] Wilder Zaidi, 62 [facility] [address] [place] [address] [place] [address] 09/09/2024 10:20 EST Office Visit [facility] Endocrinology - [facility] [address] [place] [address] Day Littlejohn MD PhD 62 [facility] [address] [place] [address] documented as of this encounter Procedures Procedure Name Priority Date/Time Associated Diagnosis Comments XR OUTSIDE IMAGES DEXA Routine 10/03/2023 15:30 EDT documented in this encounter Results * XR OUTSIDE IMAGES DEXA (10/03/2023 15:30 EDT) Narrative DONGKIERSTENCHIDI - 10/03/2023 15:30 EDT This is a non-reportable exam. us External Imaging IMG OTHER IMAGING ORDERABLES Fi nal Result KRISTI documented in this encounter Visit Diagnoses Not on filedocumented in this encounter Care Teams Crisis Clinician Relationship Specialty Start Date End Date [place] [address] PCP - General 09/30/18 documented as of this encounter
--- OUTSIDE RECORDS SUMMARY | 2024-06-28 13:47 | XMS_ITS | Encounter Summary ---
Author Organization [facility] Address [address] [place] [address] Care Team Providers Care Fish Conservationist Name Role Phone Ren Vaz MD Primary Care Provider [phone] Reason for Referral * (Routine/Next Available) - Receiving Office to Obtain Authorization Specialty Diagnoses / Procedures Referred By Contac t Referred To Contact Procedures CT OUTSIDE IMAGES HEAD Imaging, External Referral ID Status Reason Start Date Expiration Date Visits Requested Visits Authorized [id number] Receiving Office to Obtain Authorization 10/03/2023 1 1 Reason for Visit * (Routine/Next Available) - Receiving Office to Obtain Authorization Specialty Diagnoses / Procedures Referred By Contac t Referred To Contact Procedures CT OUTSIDE IMAGES HEAD Imaging, External Referral ID Status Reason Start Date Expiration Date Visits Requested Visits Authorized [id number] Receiving Office to Obtain Authorization 10/03/2023 1 1 Encounter Details Date Type Department Care Team (Latest Contact Info) Description 10/03/2023 15:30 EDT - 10/03/2023 23:59 EDT Hospital Encounter [facility] [place] Discharge Disposition: Home [...] Info) Description 07/06/2024 13:40 EST Office Visit [facility] Endocrinology - [facility] [address] [place] [address] Wilder Zaidi, 62 [facility] [address] [place] [address] 09/09/2024 10:20 EST Office Visit [facility] Endocrinology - [place] [address] [place], [place] [phone] Day Littlejohn MD PhD 62 [facility] [address] [place] [address] documented as of this encounter Procedures Procedure Name Priority Date/Time Associated Diagnosis Comments CT OUTSIDE IMAGES HEAD Routine 10/03/2023 15:31 EDT documented in this encounter Results * CT OUTSIDE IMAGES HEAD (10/03/2023 15:31 EDT) Narrative 10/03/2023 15:31 EDT This is a non-reportable exam. us External Imaging IMG OTHER IMAGING ORDERABLES Fi nal Result documented in this encounter Visit Diagnoses Not on filedocumented in this encounter Care Teams Fish Conservationist Relationship Specialty Start Date End Date [place] [address] PCP - General 09/30/18 documented as of this encounter
--- OUTSIDE RECORDS SUMMARY | 2024-06-28 13:47 | XMS_ITS | Encounter Summary ---
Author Organization [facility] Address [address] [place] [address] Care Team Providers Care Personal Lines Agent Name Role Phone Ren Vaz MD Primary Care Provider [phone] Reason for Visit * Reason Onset Date Comments Paperwork request 03/09/2024 Encounter Details Date Type Department Care Team (Late st Contact Info) Description 03/09/2024 Telephone [facility] Endocrinology - [address] [address] Day Littlejohn MD PhD [address] [facility] [address] [place] [address] Paperwork request Social History Tobacco Use Types [...] encounter Miscellaneous Notes * Telephone Encounter - Win Penningtonoren - 03/09/2024 1025 EDT Sanitation Manager faxed most recent office note to [phone] documented in this encounter Plan of Treatment Upcoming Encounters Date Type Department Care Team (Late st Contact Info) Description 07/06/2024 13:40 EST Office Visit [facility] Endocrinology - [address] [phone] Wilder Zaidi, [address] [place] [phone] 09/09/2024 10:20 EST Office Visit [facility] Endocrinology - [address] [phone] Day Littlejohn MD PhD [address] [place] [phone] documented as of this encounter Visit Diagnoses Not on filedocumented in this encounter Care Teams Personal Lines Agent Relationship Specialty Start Date End Date Ren Vaz MD [address] [place] [address] PCP - General 09/30/18 documented as of this encounter
--- OUTSIDE RECORDS SUMMARY | 2024-06-28 13:47 | XMS_ITS | Encounter Summary ---
Author Organization [facility] Address [address] [place] [address] Care Team Providers Care Java Security Engineer Name Role Phone Ren Vaz MD Primary Care Provider [phone] Reason for Visit * Reason Comments Other Secondary adrenal in sufficiency * Referral (Routine) - Receiving Office to Obtain Authorization Specialty Diagnoses / Procedures Referred By Duyen bui Referred To Contact Endocrinology Diagnoses 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HCC-CMS) Ren Vaz MD [address] [place] [address] [place] [address] Phone: tel: fax: [facility] Endocrinology [address] [address] Phone: tel: fax: Referral ID Status Reason Start Date Expiration Date Visits Requested Visits Authorized [id number] Receiving Office to Obtain Authorization 1 1 Encounter Details Date Type Department Care Team (Latest Contact Info) Description 03/06/2023 15:00 EDT Office Visit [facility] Endocrinology [address] [address] Jono Sanchez MD [address] [place] [phone] 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HCC-CMS) (Primary Dx); Secondary adrenal insufficiency (HCC-CMS); 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HCC-CMS); Gonadotropin deficiency ([facility]) Social History Tobacco Use Types Packs/Day Years [...] EDT documented in this encounter Functional Status * Is this [...] Sunni Park, RN documented in this encounter Progress Notes * Jono Sanchez MD - 03/06/2023 1500 EDT Endocrine ff up CC: Mr. Miguel Angel Burgos Trean is a 32 y.o. male, who was [...] transferred on november 2020 to a [facility] prison. No hospitalization No new med Current med [...] Info) Description 07/06/2024 13:40 EST Office Visit [facility] Endocrinology - [address] [address] Wilder Zaidi, [address] [place] [phone] 09/09/2024 10:20 EST Office Visit [facility] Endocrinology - [address] [address] Day Littlejohn MD PhD [address] [place] [phone] documented as of this encounter Visit Diagnoses Diagnosis 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HCC-CMS)- Primary Panhypopituitarism Secondary adrenal insufficiency (HCC-CMS) Glucocorticoid deficiency 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HCC-CMS) Diabetes insipidus 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 montelukast (SINGULAIR) 10 mg tablet 01/27/2023 cetirizine (ZYRTEC) 10 mg tablet Take 1 Tablet by mouth daily. pyridoxine, vitamin B6, (VITAMIN B6) 50 mg tablet Take 1 Tablet by mouth daily. quetiapine (SEROQUEL XR) 150 mg ER 24 hr tablet 03/04/2023 Prazosin (MINIPRESS) 2 mg capsule 03/03/2023 added in this encounter Care Teams Java Security Engineer Relationship Specialty Start Date End Date Ren Vaz MD [address] [place] [address] PCP - General 09/30/18 documented as of this encounter
--- OUTSIDE RECORDS SUMMARY | 2024-06-28 13:47 | XMS_ITS | Encounter Summary ---
Author Organization [facility] Address [address] [place] [address] Care Team Providers Care Scalloper Name Role Phone Ren Vaz MD Primary Care Provider Reason for Visit * Reason Comments Hypogonadism Encounter Details Date Type Department Care Team (Latest Contact Info) Description 03/04/2024 11:00 EDT Office Visit [facility] Endocrinology - [address] [phone] Day Littlejohn MD PhD [address] [facility] [address] [place] [address] Hypopituitarism involving multiple pituitary deficiencies [...] Sunni Park, RN documented in this encounter Ordered Prescriptions Prescription Sig Dispense Quantity Refills Last Filled Start Date End Date alendronate (FOSAMAX) 70 mg tablet Take 1 [...] Miguel Angel Burgos Jr. CHIEF COMPLAINT Panhypopituitarism DIRECTOR OF PROGRAMMING deficiency (formerly Diabetes Insipidus) HISTORY OF PRESENT [...] 20 mg AM and 10 mg PM DIRECTOR OF PROGRAMMING deficiency-on DDAVP 100 mcg AM and 150 [...] ICD-9-CM 1. 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 ramelteon (ROZEREM) 8 mg tablet Take 1 Tablet by mouth daily. added in this encounter Care Teams Scalloper Relationship Specialty Start Date End Date Ren Vaz MD [address] [place] [address] PCP - General 09/30/18 documented as of this encounter
--- OUTSIDE RECORDS SUMMARY | 2024-06-28 13:47 | XMS_ITS | Referral Summary ---
Author Organization [facility] Address [address] [place] [address] Care Team Providers Care Log Manager Name Role Phone Ren Vaz MD Primary Care Provider [phone] Encounters Date Type Department Care Team Description 06/21/2024 Telephone [facility] Endocrinology - [facility] [address] [place] [address] Wilder Zaidi, DO Other (Needs permission to discuss); Follow-up from Last 3 Months Allergies Active Allergy Reactions Criticality Noted Date Comments Gemfibrozil Unknown Reaction 08/24/2010 Medications Cholecalciferol, Vitamin D3, 400 unit Tab Take 2.5 Tablets by mouth daily. 08/24/19 11 Active quetiapine (SEROQUEL) 300 mg tablet Take 200 mg by mouth at bedtime. 08/24/19 11 Active Melatonin 3 mg Tab Take 10 mg by mouth at bedtime. 08/24/19 11 Active acetaminophen (TYLENOL) 325 mg tablet Take 200 mg by mouth every 4 hours as needed for Pain or Fever. Reported on 10/31/2016 02/26/20 11 Active Additional Information Patient not taking.Reported on 03/06/2023 QUEtiapine (SEROQUEL) 50 mg tabletIndications: Gonadotropin deficiency (HCC-CMS),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HCC-CMS),Panhypop ituitarism (HCC-CMS),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HCC-CMS),Secondar y hypothyroidism Take 25 mg by mouth daily. Takes at 25 mg at noon Active traZODone (DESYREL) 50 mg tabletIndications: Gonadotropin deficiency (HCC-CMS),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HCC-CMS),Panhypop ituitarism (HCC-CMS),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HCC-CMS),Secondar y hypothyroidism Take 100 mg by mouth daily. Active desmopressin (DDAVP) 0.1 mg tablet Take 0.5 Tabs by mouth 3 times daily. Take 1/2 tab three times daily 45 Tab 3 07/29/19 14 Active Additional Information Patient taking differently: 0.1 mgoral,(No frequency reported), 0.1 mg in the am, 0.15 mg PM (1.5 tabs), Reported on 09/04/2023 HYDROCODONE/ACETAM INOPHEN (VICODIN ORAL) Take 5 mg by mouth. Active testosterone (ANDROGEL) 1 % (50 mg/5 gram) gel packet Apply 5 g topically daily. Active hydrocortisone (CORTEF) 10 mg tablet Take 1 Tab by mouth 2 times daily Takes @@ 1200 & 1700 180 Tab 3 11/09/19 15 Active Additional Information Patient taking differently:10 mg oral 2 TIMES DAILY,TAke 20 mg AM and 10 mg at mid-afternoon, Reported on 09/04/2023 zonisamide (ZONEGRAN) 100 mg capsule Take 1 Cap by mouth daily 90 Each 3 12/28/19 15 Active Additional Information Patient taking differently: 400 mgoral DAILY, Reported on 03/06/2023 testosterone (ANDROGEL) 20.25 mg/1.25 gram (1.62 %) transdermal gel pumpIndications:Pa nhypopituitarism ([facility]) Apply 3 pump actuations topically daily for 90 days Daily Max: 60.75 mg 337.5 g 0 03/15/20 15 Active Additional Information Patient not taking.Reported on [...] daily. Active Prazosin (MINIPRESS) 2 mg capsule 03/03/20 23 Active quetiapine (SEROQUEL XR) 150 mg ER 24 hr tablet 03/04/20 23 Active pyridoxine, vitamin B6, (VITAMIN B6) 50 mg tablet Take 1 Tablet by mouth daily. Active cetirizine (ZYRTEC) 10 mg tablet Take 1 Tablet by mouth daily. Active montelukast (SINGULAIR) 10 mg tablet 01/28/20 23 Active levothyroxine (SYNTHROID) 200 mcg tablet Take [...] do not lie down. 12 Tablet 3 03/04/20 24 Active Active Problems Patient Care Coordination No te Formatting of this note migh t be different from the original. 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 Answer Date of Assessment Author Yes 10/01/2018 13:33 EDT * Because of a physical, mental, or emotional condition, does this person have difficulty doing errands alone such as visiting a doctor's office or shopping? Answer Date of Assessment Author Yes 10/01/2018 13:33 EDT Mental Status * Because of a physical, mental, or emotional condition, does this person have serious difficulty concentrating, remembering, or making decisions? Answer Entry Date Author Yes 10/01/2018 13:33 EDT Sunni Park, RN Plan of Treatment Upcoming Encounters Date Type Department Care Team (Late st Contact Info) Description 07/06/2024 13:40 EST Office Visit [facility] Endocrinology - [place] [phone] Wilder Zaidi, DO [address] [facility] [address] [place] [address] 09/09/2024 10:20 EST Office Visit [facility] Endocrinology - [facility] [address] [place] [address] Day Littlejohn MD PhD [address] [facility] [address] [place] [address] Medical Devices Implanted Type Area Client Integration Manager Device Identifier Shelf Expiration Date Model / [...] C Antibody Negative Negative 08/02/2019 11:26 EST [facility] Blood VENOUS BLOOD / Unknown 07/30/2019 11:59 EST 07/30/2019 16:45 EST us Provider Unknown CHEMISTRY & BLOOD GAS ORDERA BLES Final Result [facility] [address] [place] [address] from Last 3 Months or Most Recently Relevant to Health Maintenance Insurance MEDICAID ACO [place] Advance Directives For more information, please contact: [phone] Documents on File Type Date Recorded Patient Indirect Fire Infantryman Expl anation Guardianship 06/25/2024 9:[address] [address] [place] [address], [facility] Appointment of Gu * Full Code (Latest Code Status on File) Date Activated Date Inactivated Comments 02/24/2011 22:28 02/25/2011 20:41 Care Teams Log Manager Relationship Specialty Start Date End Date Ren Vaz MD [facility] [place] [address] PCP - General 09/30/18
--- OUTSIDE RECORDS SUMMARY | 2024-06-28 13:47 | XMS_ITS | Encounter Summary ---
Author Organization [facility] Address [address] [place] [address] Care Team Providers Care Stained Glass Glazier Name Role Phone Ren Vaz MD Primary Care Provider [phone] Reason for Referral * Radiology Services (Routine/Next Available) - Specialty Report Received Specialty Diagnoses / Procedures Referred By Duyen bui Referred To Contact Diagnoses History of pituitary surgery Craniopharyngioma (HCC-CMS) Procedures CT HEAD WO CONTRAST Day Littlejohn MD PhD Phone: tel: fax: Referral ID Status Reason Start Date Expiration Date V isits Requested Visits Authorized [id number] Specialty Report Received 09/04/2023 1 1 * Radiology Services (Routine/Next Available) - Specialty Report Received Specialty Diagnoses / Procedures Referred By Duyen bui Referred To Contact Diagnoses 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 Procedures DXA BONE DENSITY Day Littlejohn MD PhD Phone: tel: fax: Referral ID Status Reason Start Date Expiration Date V isits Requested Visits Authorized [id number] Specialty Report Received 1 1 Reason for Visit * Reason Comments Other Panhypopituitarism Encounter Details Date Type Department Care Team (Latest Contact Info) Description 09/04/2023 10:00 EST Office Visit [facility] Endocrinology - [facility] [address] [place], [place] [phone] Day Littlejohn MD PhD [address] [place] [address] 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); Current chronic use of systemic steroids; History of pituitary surgery; Craniopharyngioma (HCC-CMS) Social History Tobacco Use Types Packs/Day [...] EST documented in this encounter Functional Status * [...] Sunni Park, RN documented in this encounter Patient Instructions * [...] and [address] hd-at [facility] ([facility]) Order a bone dexascan to [...] mentation, seizure disorder. He lives in a skilled nursing, usually sees Dr. Zaidi. Central Diabetes Insipidus-On [...] on 3.5 L water/d. HPI Had dexascan 2019 with osteopenia, but had fracture hip in [...] risk due to vision/gait. Dexascan ordered at [facility]-warned may not have there. LOsat scan showed osteopenia-on Ca/D. Will update and see if worsening. CT ordered--will avoid MRI due to enclosure/noise that may startle him. Day Littlejohn MD PhD 09/04/2023 13:14 documented in this encounter Plan of Treatment Upcoming Encounters Date Type Department Care Team (Late st Contact Info) Description 07/06/2024 13:40 EST Office Visit [facility] Endocrinology - [address] [place] [address] Wilder Zaidi, [address] [facility] [address] [place] [address] 09/09/2024 10:20 EST Office Visit [facility] Endocrinology - [address] [address] Day Littlejohn MD PhD [address] [facility] [address] [place] [address] Scheduled Orders Name Type Priority Associated [...] may reflect changes made after this encounter. levothyroxine (SYNTHROID) 200 mcg tablet Take 1 Tablet by mouth daily. added in this encounter Care Teams Stained Glass Glazier Relationship Specialty Start Date End [place] [address] PCP - General 09/30/18 documented as of this encounter
--- OUTSIDE RECORDS SUMMARY | 2024-06-28 13:47 | XMS_ITS | Clinical Summary ---
Author Organization [facility] Address [address] [place] [address] Care Team Providers Care Down Filler Name Role Phone Ren Vaz MD Primary Care Provider [phone] Allergies Active Allergy Reactions Criticality Noted Date [...] 20.25 mg/1.25 gram (1.62 %) transdermal gel pumpIndications:Jose lastypopituitarism ([facility]) Apply 3 pump actuations topically daily for [...] original. 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 Gonadotropin deficiency ([facility]) 06/14/2010 Secondary hypothyroidism 06/14/2010 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[facility]) 06/14/2010 Encounters Date Type Department Care Team Description 06/21/2024 Telephone [facility] Endocrinology - [address] [phone] Wilder Zaidi, DO Other (Needs permission to discuss); Follow-up from Last 3 Months Medical History Medical [...] Info) Description 07/06/2024 13:40 EST Office Visit [facility] Endocrinology [facility] [address] [place], [place] [phone] Wilder Zaidi, DO [address] [facility] [address] [place] [phone] 09/09/2024 10:20 EST Office Visit [facility] Endocrinology [address] [phone] Day Littlejohn MD PhD [address] [place] [phone] Health Maintenance Due Date Last Done Comments Hepatitis B Vaccine (1 of 3 - 19+ 3-dose series) 2009 COVID-19 Vaccine (2023- season) 2024, 02/26/2022 Hepatitis C Screen Completed 07/30/2019, 02/26/2005 Medical Devices Implanted Type Area Veterinarian Epidemiologist Device Identifier Shelf Expiration Date Model / [...] C Antibody Negative Negative 08/02/2019 11:26 EST [facility] Blood VENOUS BLOOD / Unknown 07/30/2019 11:59 EST 07/30/2019 16:45 EST us Provider Unknown CHEMISTRY & BLOOD GAS ORDERA BLES Final Result [facility] [address] [place] [address] from Last 3 Months or Most Recently Relevant to Health Maintenance Insurance MEDICAID [place] Advance Directives For more information, please contact: [phone] Documents on File Type Date Recorded Patient Mounter Automatic Expl anation Guardianship 06/25/2024 9:50 S [address] of [place] [address], [facility] Appointment of Gu * Full Code (Latest Code Status on File) Date Activated Date Inactivated Comments 02/24/2011 22:28 02/25/2011 20:41 Care Teams Down Filler Relationship Specialty Start Date End Date Ren Vaz MD [address] [place] [address] PCP - General 09/30/18
--- OUTSIDE RECORDS SUMMARY | 2024-06-28 13:48 | XMS_ITS | Encounter Summary ---
Author Organization [facility] Address [address] [place] [address] Care Team Providers Care Form Setter Steel Forms Name Role Phone Ren Vaz MD Primary Care Provider Reason for Visit * Reason Onset Date Comments Appointment Related 11/19/2019 Encounter Details Date Type Department Care Team (Late st Contact Info) Description 11/19/2019 Telephone [facility] Endocrinology - [facility] [address] [place] [address] Wilder Zaidi, DO [address] [facility] [address] [place] [address] Appointment Related Social History Tobacco [...] Tomasa Merrill - 11/19/2019 1347 EDT 11/19/2019- [facility] for patient to call back to change 11/26/2019 Dr. Zaidi appointment to a televideo visit. documented in this encounter Plan of Treatment Upcoming Encounters Date Type Department Care Team (Late st Contact Info) Description 07/06/2024 13:40 EST Office Visit [facility] Endocrinology - [address] [phone] Wilder Zaidi, [address] [place] [phone] 09/09/2024 10:20 EST Office Visit [facility] Endocrinology - [address] [phone] Day Littlejohn MD PhD [address] [place] [phone] documented as of this encounter Visit Diagnoses Not on filedocumented in this encounter Care Teams Form Setter Steel Forms Relationship Specialty Start Date End Date Ren Vaz MD [facility] [address] PCP - General 09/30/18 documented as of this encounter
--- OUTSIDE RECORDS SUMMARY | 2024-06-28 13:48 | XMS_ITS | Encounter Summary ---
Author Organization [facility] Address [address] [place] [address] Care Team Providers Care Client Consultant Name Role Phone Emilee Cody MD Primary Care Provider + Ren Vaz MD Primary Care Provider [phone] Reason for Visit * Reason Onset Date Comments Medications Refill 08/07/2017 Encounter Details Date Type Department Care Team (Late st Contact Info) Description 08/07/[address] [facility] Endocrinology [facility] [address] [place] [address] Carlito Paul MD [address] [place] [address] [address] [place] [address] Medications Refill Social History Tobacco [...] Info) Description 07/06/2024 13:[address] [facility] [address] [place] [address] Wilder Zaidi, [address] [facility] [address] [place] [phone] 09/09/2024 10:20 EST Office Visit [facility] Endocrinology - [facility] [address] [place], [place] [phone] Day Littlejohn MD PhD [address] [facility] [address] [place] [phone] documented as of this encounter Visit Diagnoses Not on filedocumented in this encounter Care Teams Client Consultant Relationship Specialty Start Date End Date Emilee Cody MD [address] [place] [address] PCP - General 03/15/16 09/29/18 Ren Vaz MD [facility] [place] [address] PCP - General 09/30/18 documented as of this encounter
--- OUTSIDE RECORDS SUMMARY | 2024-06-28 13:48 | XMS_ITS | Encounter Summary ---
Author Organization [facility] [place] [facility] Address [address] [place] [address] Care Team Providers Care Internet Site Designer Name Role Phone Yossi Torres MD Primary Care Provider Reason for Visit * Reason Onset Date Comments Labs Only 08/24/2015 Encounter Details Date Type Department Care Team (Late st Contact Info) Description 08/24/2015 Telephone [facility] Endocrinology - [facility] [address] [place] [address] Wilder Zaidi DO 62 [facility] [address] [place] [address] Labs Only Social History Tobacco [...] call to Amy. Santoyo detailed message on LumiFoldil. Call back if any questions or problems. * Telephone Encounter - Wilder Zaidi DO - 08/25/2015 1037 EST No change in dose or fluid restriction. Repeat labs in 3 months. Sooner if there is a change in activity or behavior. * Telephone Encounter - Belgica Chavez - 08/25/2015 1014 EST Sodium drawn on 08/14/15 was 141 (136-145) * Telephone Encounter - Goergia Condon - 08/24/2015 1346 EST Reason for Call: Labs Only Summary/Symptoms: Patient had labs drawn on 08/14/15 at [facility], called for results. Not in PRISM. [place] Condon 08/24/2015 13:47 documented in this encounter Plan of Treatment Upcoming Encounters Date Type Department Care Team (Late st Contact Info) Description 07/06/2024 13:40 EST Office Visit [facility] Endocrinology - [address] [address] Wilder Zaidi DO [address] [address] 09/09/2024 10:20 EST Office Visit [facility] Endocrinology - [address] [phone] Day Littlejohn MD PhD [address] [place] [phone] documented as of this encounter Visit Diagnoses Not on filedocumented in this encounter Care Teams Internet Site Designer Relationship Specialty Start Date End Date Yossi Torres MD [address] [place] [address] DR BUITRAGO [address] [place] [phone] PCP - General 04/17/11 03/14/16 documented as of this encounter
--- OUTSIDE RECORDS SUMMARY | 2024-06-28 13:48 | XMS_ITS | Encounter Summary ---
Author Organization [facility] Address [address] [place] [address] Care Team Providers Care Inspector Multifocal Lens Name Role Phone Emilee Cody MD Primary Care Provider + Reason for Visit * Reason Onset Date Comments Update 04/08/2016 Going to ED Sinus Problems 04/08/2016 Difficulty Walking 04/08/2016 Encounter Details Date Type Department Care Team (Late st Contact Info) Description 04/08/2016 Telephone [facility] Endocrinology - [facility] [address] [place] [address] Wilder Zaidi, 62 [facility] [address] [place] [address] Update (Going to ED); Sinus [...] Info) Description 07/06/2024 13:40 EST Office Visit [facility] Endocrinology - [address] [phone] Wilder Zaidi DO [address] [place] [phone] 09/09/2024 10:20 EST Office Visit [facility] Endocrinology - [address] [phone] Day Littlejohn MD PhD [address] [place] [phone] documented as of this encounter Visit Diagnoses Not on filedocumented in this encounter Care Teams Inspector Multifocal Lens Relationship Specialty Start Date End Date Emilee Cody MD [address] [place] [address] PCP - General 03/15/16 09/29/18 documented as of this encounter
--- OUTSIDE RECORDS SUMMARY | 2024-06-28 13:48 | XMS_ITS | Encounter Summary ---
Author Organization [facility] Address [address] [place] [address] Care Team Providers Care Operations Support Coordinator Name Role Phone Emilee Cody MD Primary Care Provider + Reason for Visit * Reason Comments Pituitary Abnormality Encounter Details Date Type Department Care Team (Latest Contact Info) Description 10/31/2016 13:20 EDT Office Visit [facility] Endocrinology - [facility] [address] [place] [address] Wilder Zaidi, DO 62 [facility] [address] [place] [address] 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HCC-CMS) (Primary Dx); Primary [...] Miguel Angel was accompanied by the assistant press operator of his detention. He has been living with 2 other [...] No need to str ess dose. His events solutions consultant was able to articulate how and when [...] seems stable. ?? LABORATORY DATA: Obtained at [facility] on 10/04/2016 showed a sodium of 138. [...] Info) Description 07/06/2024 13:40 EST Office Visit [facility] Endocrinology - [address] [phone] Wilder Zaidi DO [address] [place] [phone] 09/09/2024 10:20 EST Office Visit [facility] Endocrinology [address] [address] Day Littlejohn MD PhD [address] [place] [phone] documented as of this encounter Visit Diagnoses Diagnosis 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HCC-CMS)- Primary Panhypopituitarism 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HCC-CMS) Diabetes insipidus documented in this encounter Historical Medications * This list may reflect changes made after this encounter. omeprazole (PRILOSEC) 20 mg capsule Take 2 Capsules by mouth daily. added in this encounter Care Teams Operations Support Coordinator Relationship Specialty Start Date End Date Emilee Cody MD [address] [place] [address] PCP - General 03/15/16 09/29/18 documented as of this encounter
--- OUTSIDE RECORDS SUMMARY | 2024-06-28 13:48 | XMS_ITS | Encounter Summary ---
Author Organization [facility] Address [address] [place] [address] Care Team Providers Care Plater Printed Circuit Board Panels Name Role Phone Emilee Cody MD Primary Care Provider + Reason for Visit * Reason Onset Date Comments Results 04/14/2017 Encounter Details Date Type Department Care Team (Late st Contact Info) Description 04/14/2017 Telephone [facility] Endocrinology - [address] [address] Hafsa Babcock RN [address] [place] [address] Results Social History Tobacco Use Types Packs/Day [...] Encounter - Hafsa Babcock RN - 04/14/2017 1455 EDT Called Patients' sister Bettina to inform her lab results within normal limits , No change in DDAVP dosage. Please extend information to intermediate. documented in this encounter Plan of Treatment Upcoming Encounters Date Type Department Care Team (Late st Contact Info) Description 07/06/2024 13:40 EST Office Visit [facility] Endocrinology [address] [place] [address] Wilder Zaidi, 62 [facility] [address] [place] [address] 09/09/2024 10:20 EST Office Visit [facility] Endocrinology - [address] [address] Day Littlejohn MD PhD [address] [phone] documented as of this encounter Visit Diagnoses Not on filedocumented in this encounter Care Teams Plater Printed Circuit Board Panels Relationship Specialty Start Date End Date Emilee Cody MD [address] [place] [address] PCP - General 03/15/16 09/29/18 documented as of this encounter
--- OUTSIDE RECORDS SUMMARY | 2024-06-28 13:48 | XMS_ITS | Encounter Summary ---
Author Organization [facility] Address [address] [place] [address] Care Team Providers Care Services Delivery Driver Name Role Phone Emilee Cody MD Primary Care Provider + Reason for Visit * Reason Onset Date Comments Follow-up 12/19/2016 Encounter Details Date Type Department Care Team (Late st Contact Info) Description 12/19/2016 Telephone [facility] Endocrinology - [facility] [address] [place] [address] Wilder Zaidi DO 62 [facility] [address] [place] [address] Follow-up Social History Tobacco Use [...] sodium that was drawn on 12/18/2016 at [facility] and [place], [place]. His sodium was normal at 141. He should continue his current dose of DDAVP and current fluid levels. documented in this encounter Plan of Treatment Upcoming Encounters Date Type Department Care Team (Late st Contact Info) Description 07/06/2024 13:40 EST Office Visit [facility] Endocrinology - [address] [address] Wilder Zaidi DO [address] [place] [phone] 09/09/2024 10:20 EST Office Visit [facility] Endocrinology - [address] [phone] Day Littlejohn MD PhD [address] [place] [phone] documented as of this encounter Visit Diagnoses Not on filedocumented in this encounter Care Teams Services Delivery Driver Relationship Specialty Start Date End Date Emilee Cody MD [address] [place] [address] PCP - General 03/15/16 09/29/18 documented as of this encounter
--- OUTSIDE RECORDS SUMMARY | 2024-06-28 13:48 | XMS_ITS | Encounter Summary ---
Author Organization [facility] Address [address] [place] [address] Care Team Providers Care Rand Butter Name Role Phone Ren Vaz MD Primary Care Provider [phone] Reason for Visit * Reason Onset Date Comments Home Health 01/12/2020 discuss other la b draws and flexeril Encounter Details Date Type Department Care Team (Late st Contact Info) Description 01/12/2020 Telephone [facility] Endocrinology - [facility] [address] [place] [address] Wilder Zaidi, 62 [facility] [address] [place] [address] Home Health (discuss other lab [...] Robin Baird - 01/12/2020 1449 EDT [facility] RN She megan labs today that were ordered. Ladonna doesn't know what else Miguel Angel would need [facility]. Also maybe In need for flexeril and should patient go through PCP for that . Please call to discuss. documented in this encounter Plan of Treatment Upcoming Encounters Date Type Department Care Team (Late st Contact Info) Description 07/06/2024 13:40 EST Office Visit [facility] Endocrinology - [address] [address] Wilder Zaidi, DO [address] [place] [address] [place] [phone] 09/09/2024 10:20 EST Office Visit [facility] Endocrinology - [address] [address] Day Littlejohn MD PhD [address] [place] [phone] documented as of this encounter Visit Diagnoses Not on filedocumented in this encounter Care Teams Rand Butter Relationship Specialty Start Date End Date Ren Vaz MD [facility] [place] [address] PCP - General 09/30/18 documented as of this encounter
--- OUTSIDE RECORDS SUMMARY | 2024-06-28 13:48 | XMS_ITS | Encounter Summary ---
Author Organization [facility] Address [address] [place] [address] Care Team Providers Care Safety Leader Name Role Phone Ren Vaz MD Primary Care Provider [phone] Reason for Visit * Reason Onset Date Comments Requesting Sooner Appointment 05/21/2019 Patient Information Update 05/21/2019 Encounter Details Date Type Department Care Team (Late st Contact Info) Description 05/21/2019 Telephone [facility] Endocrinology - [address] [phone] Lesley Jeffrey RN Requesting Sooner Appointment; Patient [...] Telephone Encounter - Wilder Zaidi DO - 05/23/2019 1641 EST Add him to any open space that I have this week in my clinic. 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 Please send me an email confirming date and time of appointment so I can put on my calendar. * Telephone Encounter - Lesley Jeffrey RN - 05/21/2019 1059 EST Images from the original note were not included. Message received from PAC : Cam Pisano 10:29 []Hide copied text []Hover for details Gluer Machine Operator calling on behalf of client to get sooner FUR w/Dr Zaidi. Soonest this underwriter could schedule was September 2019. ?? Stated patient had 'an incident' that would qualify him for sooner appt date and that Dr Zaidi knows about this patient's history and would want to see him sooner than that. ?? Asked for nurse to call her back as well as director digital marketing for sooner appt date Returning call to case worker 05/21/19 10:37 Tube Laser Operator and underwriter identified that the patient that was to [...] that had originally been sent to this underwriter LESLEY COURTNEY RN 05/21/2019 11:01 documented in this encounter Plan of Treatment Upcoming Encounters Date Type Department Care Team (Late st Contact Info) Description 07/06/2024 13:40 EST Office Visit [facility] Endocrinology - [place] [address] [place] [address] Wilder Zaidi, 62 [facility] [address] [place] [address] 09/09/2024 10:20 EST Office Visit [facility] Endocrinology - [facility] [address] [place] [address] Day Littlejohn MD PhD [address] [phone] documented as of this encounter Visit Diagnoses Not on filedocumented in this encounter Care Teams Safety Leader Relationship Specialty Start Date End Date Ren Vaz MD [facility] [place] [address] PCP - General 09/30/18 documented as of this encounter
--- OUTSIDE RECORDS SUMMARY | 2024-06-28 13:48 | XMS_ITS | Encounter Summary ---
Author Organization [facility] [place] [facility] Address [address] [place] [address] Care Team Providers Care Fundraising Sale Representative Name Role Phone Emilee Cody MD Primary Care Provider + Ren Vaz MD Primary Care Provider [phone] Encounter Details Date Type Department Care Team (Late st Contact Info) Description 03/15/2018 Historical Results Only [facility] - [place] [address] [place] [address] Delfino Gallegos MD [address] [place] [address] [place] [phone] Social History Tobacco Use Types Packs/Day [...] 07/06/2024 13:40 EST Office Visit [facility] Endocrinology - [facility] [address] [place] [address] Wilder Zaidi, 62 [facility] [address] [place] [address] 09/09/2024 10:20 EST Office Visit [facility] Endocrinology - [facility] [address] [place], [place] [phone] Day Littlejohn MD PhD [address] [facility] [address] [place] [address] documented as of this encounter Procedures Procedure Name Priority Date/Time Associated Diagnosis Comments SODIUM Routine 03/15/2018 16:50 EDT documented in this encounter Results * SODIUM (03/15/2018 16:50 EDT) Sodium 136 136 - 145 mEq/L 03/17/2018 10:41 EDT [facility] Comment: A waiver of liability has been signed and scanned into the patient's medical record. 03/15/2018 16:5 0 EDT 03/16/2018 10:05 EDT Delfino Gallegos MD CHEMISTRY & BLOOD GAS OR DERABLES Final Result [facility] documented in this encounter Visit Diagnoses Not on filedocumented in this encounter Care Teams Fundraising Sale Representative Relationship Specialty Start Date End Date Emilee Cody MD [address] [place] [address] PCP - General 03/15/16 09/29/18 Ren Vaz MD [facility] [place] [address] PCP - General 09/30/18 documented as of this encounter
--- OUTSIDE RECORDS SUMMARY | 2024-06-28 13:48 | XMS_ITS | Encounter Summary ---
Author Organization [facility] Address [address] [place] [address] Care Team Providers Care Car Seat Maker Name Role Phone Ren Vaz MD Primary Care Provider [phone] Reason for Visit * Reason Comments Pituitary Abnormality Encounter Details Date Type Department Care Team (Latest Contact Info) Description 11/26/2019 11:00 EDT Telemedicine [facility] Endocrinology - [facility] [address] [place] [address] Wilder Zaidi, DO 62 [facility] [address] [place] [address] Secondary adrenal insufficiency (HCC-CMS) (Primary [...] encounter Progress Notes * Wilder Zaidi, - 11/26/2019 1100 EDT TELEMEDICINE CONSENT [...] participate in today's encounter visit: Wilder Zaidi, SUBJECTIVE: Mr Miguel Angel Burgos is a 29-year-old male who returns to the endocrine clinic today for 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 Miguel Angel was accompanied by his sister actually and he has 2 living caretakers. Miguel Angel is currently living in his own home in [place], [place]. He has 2 caretakers are with [...] imtiaz. Unfortunately, Miguel Angel was hospitalized at [facility] from 09/02/2017 until 03/12/2018 due to [...] as his follow- up endocrinology visit at [facility]. ?? With regards to his secondary [...] the Centers for Disease Control and The [place] Department of Health we are practicing social distancing to protect both our patients and our providers during the COVID-19 pandemic. ??LABORATORY DATA: 1. Pending at time of dictation STUDIES: 1. Repeat DEXA scan performed on 06/21/2019 at [facility] showed a Z score of -2.3 [...] receive his endocrine care here at the [facility] despite living in [place]. However, if he is hospitalized he will likely be sent to [facility] and I be happy to coordinate with our endocrinology group as needed. 8. Given his testosterone deficiency, secondary to insufficiency, and history of fracture, I think a consultation to the metabolic bone clinic to discuss bone health and subsequent need for possible treatment is prudent. This will be done here at the [facility] endocrine clinic. documented in this encounter Plan of Treatment Upcoming Encounters Date Type Department Care Team (Late st Contact Info) Description 07/06/2024 13:40 EST Office Visit [facility] Endocrinology - [address] [address] Wilder Zaidi DO [address] [place] [phone] 09/09/2024 10:20 EST Office Visit [facility] Endocrinology [address] [address] Day Littlejohn MD PhD [address] [place] [phone] documented as of this encounter Visit Diagnoses Diagnosis Secondary adrenal insufficiency (HCC-CMS)- Primary Glucocorticoid deficiency 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HCC-CMS) Diabetes insipidus 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HCC-CMS) Panhypopituitarism Gonadotropin deficiency (HCC-CMS) Other anterior pituitary disorders Secondary hypothyroidism Other specified acquired hypothyroidism 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HCC-CMS) Pituitary dwarfism Fracture Closed fracture of unspecified bone documented in this encounter Care Teams Car Seat Maker Relationship Specialty Start Date End Date Ren Vaz MD [address] [place] [address] PCP - General 09/30/18 documented as of this encounter
--- OUTSIDE RECORDS SUMMARY | 2024-06-28 13:48 | XMS_ITS | Encounter Summary ---
Author Organization [facility] Address [address] [place] [address] Care Team Providers Care Privacy Officer Name Role Phone Yossi Torres MD Primary Care Provider [phone] Reason for Visit * Reason Onset Date Comments Results 05/02/2015 Encounter Details Date Type Department Care Team (Late st Contact Info) Description 05/02/2015 Telephone [facility] Endocrinology - [facility] [address] [place] [address] Wilder Zaidi DO 62 [facility] [address] [place] [address] Results Social History Tobacco Use [...] Left detailed message for jason strickland at [facility]. She will call back if any questions. * Telephone Encounter - Wilder Zaidi DO - 05/02/2015 0302 EDT Please contact the facility where Miguel [...] Info) Description 07/06/2024 13:40 EST Office Visit [facility] Endocrinology - [address] [address] Wilder Zaidi DO [address] [place] [phone] 09/09/2024 10:20 EST Office Visit [facility] Endocrinology - [address] [address] Day Littlejohn MD PhD [address] [place] [phone] documented as of this encounter Visit Diagnoses Not on filedocumented in this encounter Care Teams Privacy Officer Relationship Specialty Start Date End Date Yossi Torres MD [address] [place] [address] DR BUITRAGO [address] [place] [phone] PCP - General 04/17/11 03/14/16 documented as of this encounter
--- OUTSIDE RECORDS SUMMARY | 2024-06-28 13:48 | XMS_ITS | Encounter Summary ---
Author Organization [facility] Address [address] [place] [address] Care Team Providers Care Color Corrector Name Role Phone Emilee Cody MD Primary Care Provider + Reason for Visit * Reason Onset Date Comments Results 06/02/2017 Encounter Details Date Type Department Care Team (Late st Contact Info) Description 06/02/2017 Telephone [facility] - [facility] [address] [place] [address] Wilder Zaidi DO 62 [facility] [address] [place] [address] Results Social History Tobacco Use [...] Encounter - Jennifer Au RN - 06/03/2017 5532 EST Relayed to clinical engineering manager of [facility] the sodium results of 05/28 with no changes. She verbalized understanding. Labs will be repeated in 6-8 weeks. * Telephone Encounter - Wilder Zaidi DO - 06/02/20172055 EST Please contact patient's living facility. His [facility] [address] [phone] Wilder Zaidi DO [address] [place] [phone] 09/09/2024 10:20 EST Office Visit [facility] Endocrinology - [address] [address] Day Littlejohn MD PhD [address] [place] [phone] documented as of this encounter Visit Diagnoses Not on filedocumented in this encounter Care Teams Color Corrector Relationship Specialty Start Date End Date Emilee Cody MD [address] [place] [address] PCP - General 03/15/16 09/29/18 documented as of this encounter
--- OUTSIDE RECORDS SUMMARY | 2024-06-28 13:48 | XMS_ITS | Encounter Summary ---
Author Organization [facility] Address [address] [place] [address] Care Team Providers Care Spar Finisher Name Role Phone Emilee Cody MD Primary Care Provider + Reason for Visit * Reason Onset Date Comments Prior Auth, Medication 07/12/2016 Levothyro xine 150 mcg needs 30 day overide thru Insurance Encounter Details Date Type Department Care Team (Late st Contact Info) Description 07/12/2016 Telephone [facility] Endocrinology - [facility] [address] [place] [address] Wilder Zaidi DO 62 [facility] [place] [facility] [address] [place] [address] Prior Auth, Medication (Levothyroxine 150 [...] Telephone Encounter - Lucía Bundy - 07/15/2016 1403 EST Rcvd fax from [place] [employer] with APPROVAL for: Drug NDC # and Name: [id number] - LEvothyroxin tab 150 mcg Tracking #: [id number] PA #: [id number] Dates: 07/15/2016 - 07/15/2017 Qty / Days Supply Restrictions: 30.0 / 30 [place] Medicaid ID #: [id number] Called pharmacy - they already rcvd notice and script has been picked up. * Telephone Encounter - Lucía Bundy - 07/15/2016 1155 EST Completed [place] Medicaid [place] Request form and e-filed using [facility] to initiate this process. * Telephone Encounter [...] Info) Description 07/06/2024 13:40 EST Office Visit [facility] Endocrinology - [address] [phone] Wilder Zaidi, [address] [place] [phone] 09/09/2024 10:20 EST Office Visit [facility] Endocrinology - [address] [address] Day Littlejohn MD PhD [address] [place] [address] [place] [phone] documented as of this encounter Visit Diagnoses Not on filedocumented in this encounter Care Teams Spar Finisher Relationship Specialty Start Date End Date Emilee Cody MD [address] [place] [address] PCP - General 03/15/16 09/29/18 documented as of this encounter
--- OUTSIDE RECORDS SUMMARY | 2024-06-28 13:48 | XMS_ITS | Encounter Summary ---
Author Organization [facility] Address [address] [place] [address] Care Team Providers Care Stock Checker Name Role Phone Emilee Cody MD Primary Care Provider + Reason for Visit * Reason Onset Date Comments Prior Auth, Medication 08/05/2017 Encounter Details Date Type Department Care Team (Late st Contact Info) Description 08/05/[address] [facility] Endocrinology - [address] [phone] Emilee Cody MD [address] [place] [address] Prior Auth, Medication Social History Tobacco [...] - 08/08/2017 0831 EST Rcvd fax from [place] Medicaid with APPROVAL for Levothyroxine 150 mcg tablet. PA #: [id number] Dates: 08/07/2017 - 08/07/2018 Tracking #: [id number] Qty/Days Supply Restrictions: Called pharmacy to provide approval details. * Telephone Encounter - Lucía Bundy - 08/07/2017 1608 EST Completed [place] Medicaid PA request form for levothyroxine blister pack and e-filed using [facility] to initiate this process. Response time is 3-5 days. To f/u, call [phone] * Telephone Encounter - Kristin Osman - 08/05/2017 1904 EST Rec sherrill from [facility] [address] [place] [id number] Rx # [id number] Every Day /Blisster Pack LEVOTHYROXINE 150 MCG TAB QTY 30 PA NEEDED documented in this encounter Plan of Treatment Upcoming Encounters Date Type Department Care Team (Late st Contact Info) Description 07/06/2024 13:[address] [facility] Endocrinology - [address] [phone] Wilder Zaidi, [address] [place] [address] [place] [phone] 09/09/2024 10:[address] [facility] Endocrinology - [address] [address] Day Littlejohn MD PhD [address] [place] [address] [place] [phone] documented as of this encounter Visit Diagnoses Not on filedocumented in this encounter Care Teams Stock Checker Relationship Specialty Start Date End Date Emilee Cody MD [address] [place] [address] PCP - General 03/15/16 09/29/18 documented as of this encounter
--- OUTSIDE RECORDS SUMMARY | 2024-06-28 13:48 | XMS_ITS | Encounter Summary ---
Author Organization [facility] Address [address] [place] [address] Care Team Providers Care Log Hooker Name Role Phone Emilee Cody MD Primary Care Provider + Reason for Visit * Reason Onset Date Comments Medications Refill 05/27/2017 Encounter Details Date Type Department Care Team (Late st Contact Info) Description 05/27/[address] [facility] Endocrinology - [facility] [address] [place] [address] Wilder Zaidi, [address] [facility] [address] [place] [address] Medications Refill Social History Tobacco [...] of this encounter Ordered Prescriptions Prescription Sig Dispense Quantity Refills Last Filled Start Date End Date levothyroxine (SYNTHROID) 150 mcg tablet TAKE ONE TABLET BY MOUTH EVERY DAY/ Blister pack 90 Tab 3 05/27/2017 4 documented in this encounter Miscellaneous Notes * Telephone Encounter - Belgica Camara V. - 05/27/2017 1205 EST Medication(s) Requested : Levothyroxine 150mcg Pharmacy: [facility] Next Visit Date 10/23/2017 Out of Medication? No Belgica Camara 05/27/2017 12:05 documented in this encounter Plan of Treatment Upcoming Encounters Date Type Department Care Team (Late st Contact Info) Description 07/06/2024 13:[address] [facility] Endocrinology - [address] [phone] Wilder Zaidi, [address] [place] [phone] 09/09/2024 10:20 EST Office Visit [address] [phone] Day Littlejohn MD PhD [address] [place] [phone] documented as of this encounter Visit Diagnoses Not on filedocumented in this encounter Discontinued Medications Medication Sig Discontinue Reason Start Date End Da te levothyroxine (SYNTHROID) 150 mcg tablet TAKE ONE TABLET BY MOUTH EVERY DAY/ Blister pack Reorder 07/12/2016 05/27/2017 documented as of this encounter Care Teams Log Hooker Relationship Specialty Start Date End Date Emilee Cody MD [address] [place] [address] PCP - General 03/15/16 09/29/18 documented as of this encounter
--- OUTSIDE RECORDS SUMMARY | 2024-06-28 13:48 | XMS_ITS | Encounter Summary ---
Author Organization [facility] Address [address] [place] [address] Care Team Providers Care High Court Justice Name Role Phone Emilee Cody MD Primary Care Provider + Reason for Visit * Reason Onset Date Comments Update 04/09/2016 standing medicat ion form Encounter Details Date Type Department Care Team (Late st Contact Info) Description 04/09/2016 Telephone [facility] Endocrinology - [facility] [address] [place] [address] Wilder Zaidi, [address] [facility] [address] [place] [address] Update (standing medication form) Social [...] Update (standing medication form) Summary/Symptoms: Lali from [facility] is calling to discuss a prescription that [...] EST Office Visit [facility] Endocrinology - [address] [address] Wilder Zaidi, [address] [place] [phone] 09/09/2024 10:20 EST Office Visit [facility] Endocrinology [address] [address] Day Littlejohn MD PhD [address] [place] [phone] documented as of this encounter Visit Diagnoses Not on filedocumented in this encounter Care Teams High Court Justice Relationship Specialty Start Date End Date Emilee Cody MD [address] [place] [address] PCP - General 03/15/16 09/29/18 documented as of this encounter
--- OUTSIDE RECORDS SUMMARY | 2024-06-28 13:48 | XMS_ITS | Encounter Summary ---
Author Organization [facility] Address [address] [place] [address] Care Team Providers Care Adjunct Faculty Mathematics Department Name Role Phone Ren Vaz MD Primary Care Provider [phone] Encounter Details Date Type Department Care Team (Late st Contact Info) Description 08/09/2019 Lab Requisition [facility] Pathology & Laboratory Medicine - [facility] [address] [place] [address] Mary Jo Eldridge, DO [address] [place], [place] [phone] Vomiting, unspecified; Adult hypertrophic pyloric stenosis; Unspecified convulsions (HCC-CMS); Hypopituitarism (HCC-CMS); Cramp and spasm; Gastro-esophageal reflux disease without esophagitis; Diabetes insipidus (HCC-CMS); Fever, unspecified; Other specified health status; Transient alteration of awareness; Unspecified intracranial injury with loss of consciousness of unspecified duration, initial encounter (HCC-CMS); Other gastritis without bleeding Social History Tobacco [...] [place], RN documented in this encounter Plan of Treatment Upcoming Encounters Date Type Department Care Team (Late st Contact Info) Description 07/06/2024 13:40 EST Office Visit [facility] Endocrinology [address] [address] Wilder aZidi, [address] [place] [phone] 09/09/2024 10:20 EST Office Visit [facility] Endocrinology - [address] [phone] Day Littlejohn MD PhD [address] [place] [phone] documented as of this encounter Procedures Procedure Name Priority Date/Time Associated Diagnosis Comments SURGICAL PATHOLOGY Today 08/08/2019 14 :49 EST Vomiting, unspecified Adult hypertrophic pyloric stenosis Unspecified convulsions ([facility]) Hypopituitarism ([facility]) Cramp and spasm Gastro-esophageal reflux disease without esophagitis Diabetes insipidus ([facility]) Fever, unspecified Other specified health status Transient alteration of awareness Unspecified intracranial injury with loss of consciousness of unspecified duration, initial encounter ([facility]) Other gastritis without bleeding documented in this [...] Organisms compatible with sarcina noted. 08/18/2019 12:07 [facility] at 1207 Diagnosis Comment Iron stain is negative for iron deposition (A2). 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 Clinical correlation is recommended. 08/18/2019 12:07 [facility] Clinical History Gastric outlet obstruction 08/18/2019 12:07 [facility] Attestation By the signature below, the attending physician certifies that they have personally conducted a gross and/or microscopic examination of the described specimens and rendered or confirmed the above diagnosis. 08/18/2019 12:07 [facility] at 1207 Gross Description A. [...] is submitted in toto in B1. Candice Rowan 08/09/2019 16:08 08/18/2019 12:07 [facility] Scanned Images 08/18/2019 12:07 [facility] Tissue ENTIRE STOMACH / Unknown 08/08/2019 14:49 EST 08/09/2019 15:52 EST Tissue specimen (specimen) STOMACH STRUCTURE / Unknown 08/08/2019 14:49 EST 08/09/2019 15:52 EST us Mary Jo Eldridge DO PATHOLOGY ORDERABLES Final Re sult [facility] [address] [place] [address] documented in this encounter Visit Diagnoses Diagnosis Vomiting, unspecified Adult hypertrophic pyloric stenosis Acquired hypertrophic pyloric stenosis Unspecified convulsions ([facility]) Hypopituitarism ([facility]) Panhypopituitarism Cramp and spasm Gastro-esophageal reflux disease without esophagitis Esophageal reflux Diabetes insipidus ([facility]) Diabetes insipidus Fever, unspecified Other specified health status Transient alteration of awareness Unspecified intracranial injury with loss of consciousness of unspecified duration, initial encounter ([facility]) Other gastritis without bleeding documented in this encounter Care Teams Adjunct Faculty Mathematics Department Relationship Specialty Start Date End Date Ren Vaz MD [address] [place] [address] PCP - General 09/30/18 documented as of this encounter
--- OUTSIDE RECORDS SUMMARY | 2024-06-28 13:48 | XMS_ITS | Encounter Summary ---
Author Organization [facility] Address [address] [place] [address] Care Team Providers Care Family Resource Management Professor Name Role Phone Emilee Cody MD Primary Care Provider + Reason for Visit * Reason Onset Date Comments Medication Problem 07/12/2016 needs overrid e Encounter Details Date Type Department Care Team (Late st Contact Info) Description 07/12/[address] [facility] Endocrinology - [facility] [address] [place] [address] Wilder Zaidi, [address] [facility] [address] [place] [address] Medication Problem (needs override) Social [...] EVERY DAY/ Blister pack 30 Tab 07/12/2016 7 documented in this encounter Miscellaneous Notes * Telephone Encounter - Jennifer Au RN - 07/12/2016 1643 EST Script filled./JOSE * Telephone Encounter - JavadGladys gallegos - 07/12/2016 1251 EST Reason for Call: Medication Problem (needs override) Summary/Symptoms: Pt needs 30 day override for levothyroxine. Pt only has 4 tabs left. Gladys Willingham 07/12/2016 12:51 documented in this encounter Plan of Treatment Upcoming Encounters Date Type Department Care Team (Late st Contact Info) Description 07/06/2024 13:40 EST Office Visit [facility] Endocrinology [address] [phone] Wilder Zaidi, [address] [place] [phone] 09/09/2024 10:20 EST Office Visit [facility] Endocrinology - [address] [phone] Day Littlejohn MD PhD [address] [place] [phone] documented as of this encounter Visit Diagnoses Not on filedocumented in this encounter Discontinued Medications Medication Sig Discontinue Reason Start Date End Da te levothyroxine (SYNTHROID) 150 mcg tablet TAKE ONE TABLET BY MOUTH EVERY DAY/ Blister pack Reorder 06/14/2016 07/12/2016 documented as of this encounter Care Teams Family Resource Management Professor Relationship Specialty Start Date End Date Emilee Cody MD [address] [place] [address] PCP - General 03/15/16 09/29/18 documented as of this encounter
--- OUTSIDE RECORDS SUMMARY | 2024-06-28 13:48 | XMS_ITS | Encounter Summary ---
Author Organization [facility] Address [address] [place] [address] Care Team Providers Care Distributor Of Directories Name Role Phone Yossi Torres MD Primary Care Provider [phone] Reason for Visit * Reason Onset Date Comments Discuss Test Results 05/18/2015 Encounter Details Date Type Department Care Team (Late st Contact Info) Description 05/18/2015 Telephone [facility] Endocrinology - [facility] [address] [place] [address] Wilder Zaidi, [address] [facility] [address] [place] [address] Discuss Test Results Social History [...] * Telephone Encounter - Belgica Chavez - 05/18/2015 1628 EST Left message for Lali, same dose retest in 4 wks. * Telephone Encounter - Belgica Chavez - 05/18/2015 1544 EST Sodium 143 from [facility]. * Telephone Encounter - Tracy Nunez - 05/18/2015 7493 EST Reason for Call: Discuss Test Results Summary/Symptoms: S[facility] results done [facility] Tracy Nunez 05/18/2015 13:44 documented in this encounter Plan of Treatment Upcoming Encounters Date Type Department Care Team (Late st Contact Info) Description 07/06/2024 13:40 EST Office Visit [facility] Endocrinology - [address] [address] Wilder Zaidi, [address] [facility] [address] [place] [phone] 09/09/2024 10:20 EST Office Visit [facility] Endocrinology - [address] [phone] Day Littlejohn MD PhD [address] [facility] [address] [place] [phone] documented as of this encounter Visit Diagnoses Not on filedocumented in this encounter Care Teams Distributor Of Directories Relationship Specialty Start Date End Date Yossi Torres MD [address] [place] [address] [phone] PCP - General 04/17/11 03/14/16 documented as of this encounter
--- OUTSIDE RECORDS SUMMARY | 2024-06-28 13:48 | XMS_ITS | Encounter Summary ---
Author Organization [facility] Address [address] [place] [address] Care Team Providers Care Lead Maintenance Technician Name Role Phone Ren Vaz MD Primary Care Provider [phone] Reason for Visit * Reason Comments Pituitary Abnormality Encounter Details Date Type Department Care Team (Latest Contact Info) Description 05/26/2019 11:40 EST Office Visit [facility] Endocrinology - [facility] [address] [place] [address] Jr Salas, DO [address] [facility] [address] [place] [address] Secondary adrenal insufficiency (HCC-CMS) (Primary [...] - documented in this encounter Functional Status * [...] 5. Dr. Salas to schedule [place] [facility] documented in this encounter Progress Notes * [...] currently living in his own home in [place], [place]. He has 2 caretakers are with [...] imtiaz. Unfortunately, Miguel Angel was hospitalized at [facility] from 09/02/2017 until 03/12/2018 due to [...] as his follow- up endocrinology visit at [facility]. ?? With regards to his secondary [...] at the [facility] despite living in [place]. However, if he is hospitalized he will likely be sent to [facility] and I be happy to coordinate with our endocrinology group as needed. 8. Will obtain previous DEXA scan performed at [facility] and reorder scan. 9. Given his testosterone deficiency, secondary to insufficiency, and history of fracture. Once I have his DEXA data I think a one-time consultation to the metabolic bone clinic to discuss bone health and subsequent need for possible treatment is prudent. This will be done here at the [facility] [place] [facility] endocrine clinic. documented in this encounter Miscellaneous Notes * Addendum Note - Jr Salas DO - 05/26/2019 1140 ESTAddended by: JR SALAS on: 05/26/2019 12:45 Modules accepted: Orders documented in this encounter Plan of Treatment Upcoming Encounters Date Type Department Care Team (Late st Contact Info) Description 07/06/2024 13:40 EST Office Visit [facility] Endocrinology - [address] [address] Jr Salas DO [address] [facility] [address] [place] [address] 09/09/2024 10:20 EST Office Visit [facility] Endocrinology - [address] [address] Day Littlejohn MD PhD [address] [facility] [address] [place] [phone] documented as of this encounter [...] may reflect changes made after this encounter. baclofen (LIORESAL) 20 mg tablet Take 1 Tablet by mouth 4 times daily. sennosides (SENEXON ORAL) Take by mouth. magnesium gluconate (MAG-G ORAL) Take 250 mg by mouth 2 times daily. added in this encounter Care Teams Lead Maintenance Technician Relationship Specialty Start Date End [place] [address] PCP - General 09/30/18 documented as of this encounter
--- OUTSIDE RECORDS SUMMARY | 2024-06-28 13:48 | XMS_ITS | Encounter Summary ---
Author Organization [facility] Address [address] [place] [address] Care Team Providers Care Desulphuring Operator Name Role Phone Ren Vaz MD Primary Care Provider [phone] Reason for Visit * Reason Onset Date Comments Coordination Of Care 01/05/2020 Encounter Details Date Type Department Care Team (Late st Contact Info) Description 01/05/2020 Telephone [facility] Endocrinology - [facility] [address] [place] [address] Wilder Zaidi, [address] [facility] [address] [place] [address] Coordination Of Care Social History [...] EDT Electronically faxed requested information back to [facility]. * Telephone Encounter - Flavio Carmel - 01/05/2020 0908 EDT Raphael with [facility] following up on the referral. They have received it but need a [facility] problem list as well. Please fax to [phone]. documented in this encounter Plan of Treatment Upcoming Encounters Date Type Department Care Team (Late st Contact Info) Description 07/06/2024 13:40 EST Office Visit [facility] Endocrinology - [address] [phone] Wilder Zaidi, [address] [place] [phone] 09/09/2024 10:20 EST Office Visit [facility] Endocrinology - [address] [address] Day Littlejohn MD PhD [address] [place] [phone] documented as of this encounter Visit Diagnoses Not on filedocumented in this encounter Care Teams Desulphuring Operator Relationship Specialty Start Date End Date Ren Vaz MD [facility] [facility] [address] PCP - General 09/30/18 documented as of this encounter
--- OUTSIDE RECORDS SUMMARY | 2024-06-28 13:48 | XMS_ITS | Encounter Summary ---
Author Organization [facility] Address [address] [place] [address] Care Team Providers Care Ready Mix Truck Driver Name Role Phone Emilee Cody MD Primary Care Provider + Reason for Visit * Reason Onset Date Comments Orders (Non Pre-visit) 06/21/2016 Encounter Details Date Type Department Care Team (Late st Contact Info) Description 06/21/2016 Telephone [facility] Endocrinology - [facility] [address] [place] [address] Wilder Zaidi, [address] [facility] [address] [place] [phone] Orders (Non Pre-visit) Social History [...] Encounter - Jennifer Au RN - 06/21/2016 1159 EST Lab orders faxed as requested./JOSE * Telephone Encounter - Gladys Willingham - 06/21/2016 8549 EST Reason for Call: Orders (Non Pre-visit) Summary/Symptoms: Pt needs lab orders faxed to [facility] @ [phone]. 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
--- OUTSIDE RECORDS SUMMARY | 2024-06-28 13:48 | XMS_ITS | Encounter Summary ---
Author Organization [facility] Address [address] [place] [address] Care Team Providers Care Hospitality Specialist Name Role Phone Ren Vaz MD Primary Care Provider [phone] Reason for Visit * Reason Onset Date Comments Results 03/10/2019 Encounter Details Date Type Department Care Team (Late st Contact Info) Description 03/10/[address] [facility] Endocrinology - [facility] [address] [place] [address] Wilder Zaidi, DO [address] [facility] [address] [place] [address] Results Social History Tobacco Use [...] 1237 EDT Called and spoke with pt test case developer and relayed Dr. Zaidi's message below: Please contact patient's caregivers. The patient Miguel Angel is nonverbal. Please advise him that I have reviewed his blood work obtained at [facility] [place] [facility] drawn on 03/04/2019. His sodium was stable at 144. They should continue his current dose of DDAVP and fluid restriction. Repeat sodium in 3 months unless there is any significant changes in his behavior or urine output etc. Please advise his caretakers to contact me with any questions or concerns Patient test case developer verbalized understanding. No barriers to learning noted. * Telephone Encounter - Wilder Zaidi Do - 03/10/2019 0933 EDT Please contact patient's caregivers. The patient Miguel Angel is nonverbal. Please advise him that I have reviewed his blood work obtained at [facility] [place] [facility] drawn on 03/04/2019. His sodium was [...] 13:40 EST Office Visit [facility] Endocrinology [facility] [address] [place] [address] Wilder Zaidi DO [address] [facility] [address] [place] [phone] 09/09/2024 10:20 EST Office Visit [facility] Endocrinology - [facility] [address] [place], [place] [phone] Day Littlejohn MD PhD [address] [facility] [address] [place] [phone] documented as of this encounter Visit Diagnoses Not on filedocumented in this encounter Care Teams Hospitality Specialist Relationship Specialty Start Date End Date Ren Vaz MD [facility] [place] [address] PCP - General 09/30/18 documented as of this encounter
--- OUTSIDE RECORDS SUMMARY | 2024-06-28 13:48 | XMS_ITS | Encounter Summary ---
Author Organization [facility] Address [address] [place] [address] Care Team Providers Care Transliterator Name Role Phone Yossi Torres MD Primary Care Provider [phone] Reason for Visit * Reason Onset Date Comments Labs Only 01/29/2016 Results 01/31/2016 lab,7.22,[facility] Encounter Details Date Type Department Care Team (Late st Contact Info) Description 01/29/2016 Telephone [facility] Endocrinology - [address] [phone] Georgia Rice RN Labs Only; Results (lab,7.22,[facility]) Social History Tobacco Use Types Packs/Day [...] and repeat in 2 wks. [facility] detention notified. * Telephone Encounter - Day Littlejohn MD - 01/31/2016 1710 EDT Repeat the Na done in [place] and found slip in Dr. Zaidi's box. Level is 133 (o=[phone])---but last few draws 141-146. In October his [...] if lab results from 01.25 done at [facility] are available yet. Per Dr. Dejuan Ho out sick and will ask a covering. Will call back as soon as she has an answer. Alicia Chi 01/31/2016 15:49 * Telephone Encounter - Georgia Rice RN - 01/29/2016 1234 EDT Received lab results from [facility] Resulted 01/26/16 Sodium-133 L (T=[id number]) documented in this encounter Plan of Treatment Upcoming Encounters Date Type Department Care Team (Late st Contact Info) Description 07/06/2024 13:40 EST Office Visit [facility] Endocrinology - [place] [address] [place] [address] Wilder Zaidi, 62 [facility] [address] [place] [address] 09/09/2024 10:20 EST Office Visit [facility] Endocrinology - [facility] [address] [place] [address] Day Littlejohn MD PhD [address] [address] documented as of this encounter Visit Diagnoses Not on filedocumented in this encounter Care Teams Transliterator Relationship Specialty Start Date End Date Yossi Torres MD [address] [place] [phone] PCP - General 04/17/11 03/14/16 documented as of this encounter
--- OUTSIDE RECORDS SUMMARY | 2024-06-28 13:48 | XMS_ITS | Encounter Summary ---
Author Organization [facility] Address [address] [place] [address] Care Team Providers Care Rehabilitation Services Aide Name Role Phone Emilee Cody MD Primary Care Provider + Reason for Visit * Reason Onset Date Comments Results 10/07/2016 done 10/04 Follow-up 10/09/2016 sodium results Encounter Details Date Type Department Care Team (Late st Contact Info) Description 10/07/2016 Telephone [facility] Endocrinology - [facility] [address] [place] [address] Wilder Zaidi, 62 [facility] [address] [place] [address] Results (done 10/04); Follow-up (sodium [...] 1335 EDT Please contact Lali at patient's fpc. His sodium on 10/04/16 was normal at 138 * Telephone Encounter - Maxine Roy - 10/09/2016 1110 EDT Lali @[facility] requesting sodium results. Lali made aware this was pending Dr. Zaidi's review. * Telephone Encounter - Jennifer Au, HEATHER - 10/07/2016 1353 EDT Spoke with Lali, do not have labs - will kimble them down at [facility]./Jose * Telephone Encounter - Arlene Monroy - 10/07/2016 1319 EDT Per Lali from [facility] calling for sodium lab results done on 10/04/16. Lali is requestinga call back with results. documented in this encounter Plan of Treatment Upcoming Encounters Date Type Department Care Team (Late st Contact Info) Description 07/06/2024 13:40 EST Office Visit [facility] Endocrinology - [address] [address] Wilder Zaidi DO [address] [place] [address] 09/09/2024 10:20 EST Office Visit [facility] Endocrinology [address] [address] Day Littlejohn MD PhD [address] [place] [address] documented as of this encounter Visit Diagnoses Not on filedocumented in this encounter Care Teams Rehabilitation Services Aide Relationship Specialty Start Date End Date Emilee Cody MD [address] [place] [address] PCP - General 03/15/16 09/29/18 documented as of this encounter
--- OUTSIDE RECORDS SUMMARY | 2024-06-28 13:48 | XMS_ITS | Encounter Summary ---
Author Organization [facility] Address [address] [place] [address] Care Team Providers Care Lymphedema Therapist Name Role Phone Yossi Torres MD Primary Care Provider [phone] Reason for Visit * Reason Onset Date Comments Results 10/13/2015 Encounter Details Date Type Department Care Team (Late st Contact Info) Description 10/13/2015 Telephone [facility] Endocrinology - [facility] [address] [place] [address] Belgica ChavezBRENNEN 62 [facility] [address] [place] [address] Results Social History Tobacco Use [...] Info) Description 07/06/2024 13:40 EST Office Visit [facility] Endocrinology - [address] [address] Wilder Zaidi, [address] [place] [address] [address] [place] [address] 09/09/2024 10:20 EST Office Visit [facility] Endocrinology - [address] [address] Day Littlejohn MD PhD [address] [place] [phone] documented as of this encounter Visit Diagnoses Not on filedocumented in this encounter Care Teams Lymphedema Therapist Relationship Specialty Start Date End Date Yossi Torres MD [address] [place] [phone] PCP - General 04/17/11 03/14/16 documented as of this encounter
--- OUTSIDE RECORDS SUMMARY | 2024-06-28 13:48 | XMS_ITS | Encounter Summary ---
Author Organization [facility] Address [address] [place] [address] Care Team Providers Care Shop Director Name Role Phone Ren Vaz MD Primary Care Provider [phone] Reason for Visit * Reason Onset Date Comments Referral Request 01/04/2020 referral for Bl ood draw in home Encounter Details Date Type Department Care Team (Late st Contact Info) Description 01/04/2020 Telephone [facility] Endocrinology - [facility] [address] [place] [address] Wilder Zaidi, DO 62 [facility] [address] [place] [address] Referral Request (referral for Blood [...] Miscellaneous Notes * Telephone Encounter - Lesley Jeffrey, HEATHER - 01/04/2020 1139 EDT Lab orders from 11/26/2019 electronically faxed to : [facility] Fax number : [phone] LESLEY COURTNEY RN 01/04/2020 11:42 * Telephone Encounter - Robin [place] - 01/04/2020 0959 EDT Please send referral to [facility] for patient to have a blood draw. His Guardian is requesting he doesn't go into the hospital. He needs blood drawn by end january. . documented in this encounter Plan of Treatment Upcoming Encounters Date Type Department Care Team (Late st Contact Info) Description 07/06/2024 13:40 EST Office Visit [facility] Endocrinology - [address] [address] Wilder Zaidi, [address] [place] [phone] 09/09/2024 10:20 EST Office Visit [facility] Endocrinology - [address] [address] Day Littlejohn MD PhD [address] [place] [phone] documented as of this encounter Visit Diagnoses Not on filedocumented in this encounter Care Teams Shop Director Relationship Specialty Start Date End Date Ren Vaz MD [address] [place] [address] PCP - General 09/30/18 documented as of this encounter
--- OUTSIDE RECORDS SUMMARY | 2024-06-28 13:48 | XMS_ITS | Encounter Summary ---
Author Organization [facility] Address [address] [place] [address] Care Team Providers Care Office Supervisor Name Role Phone Yossi Torres MD Primary Care Provider [phone] Reason for Visit * Reason Onset Date Comments Medications Refill 05/03/2015 Encounter Details Date Type Department Care Team (Late st Contact Info) Description 05/03/[address] [facility] Endocrinology - [facility] [address] [place] [address] Wilder Zaidi, 62 [facility] [address] [place] [address] Medications Refill Social History Tobacco [...] 0956 EDT Medication(s) Requested: Levothyroxine 150mcg Pharmacy: [facility] Last Refill Date: 08/25/14 Last Visit Date: 08/04/14 Next Visit Date: 10/23/2015 Is patient out of medication? Dinorah Burgess 05/03/2015 9:56 documented in this encounter Plan of Treatment Upcoming Encounters Date Type Department Care Team (Late st Contact Info) Description 07/06/2024 13:[address] [facility] Endocrinology [address] [address] Wilder Zaidi, [address] [place] [phone] 09/09/2024 10:20 EST Office Visit [address] [address] Day Littlejohn MD PhD [address] [place] [phone] documented as of this encounter Visit Diagnoses Not on filedocumented in this encounter Discontinued Medications Medication Sig Discontinue Reason Start Date End Da te levothyroxine (SYNTHROID) 150 mcg tablet TAKE ONE TABLET BY MOUTH EVERY DAY Reorder 08/25/2014 05/03/2015 documented as of this encounter Care Teams Office Supervisor Relationship Specialty Start Date End Date Yossi Torres MD [address] [place] [address] [address] [place] [phone] PCP - General 04/17/11 03/14/16 documented as of this encounter
--- OUTSIDE RECORDS SUMMARY | 2024-06-28 13:48 | XMS_ITS | Encounter Summary ---
Author Organization [facility] Address [address] [place] [address] Care Team Providers Care Sow Farm Barn Technician Name Role Phone Ren Vaz MD Primary Care Provider [phone] Reason for Visit * Reason Onset Date Comments Coordination Of Care 03/24/2019 Encounter Details Date Type Department Care Team (Late st Contact Info) Description 03/24/2019 Telephone [facility] Endocrinology - [facility] [address] [place] [address] Wilder Zaidi, 62 [facility] [address] [place] [address] Coordination Of Care Social History [...] and go to the emergency department. Instructed safety manager to call back with any questions. [...] 1313 EDT Called and left message for safety manager to call back. * Telephone Encounter - Georgia Cervantes - 03/24/2019 1016 EDT Evelyn mendiola as patient is running a high fever today and was hospitalized a couple of days ago Evelyn stated they have hard time with the local hospital and Dr. Zaidi has called them before to explain patients medical condition Evelyn is thinking of taking patient to the ER today and possibly have Dr. Zaidi call the [facility] but would like to speak to a nurse first Please call Evelyn back SHEEBA documented in this encounter Plan of Treatment Upcoming Encounters Date Type Department Care Team (Late st Contact Info) Description 07/06/2024 13:40 EST Office Visit [facility] Endocrinology - [address] [address] Wilder Zaidi, [address] [address] 09/09/2024 10:20 EST Office Visit [facility] Endocrinology - [address] [address] Day Littlejohn MD PhD [address] [place] [address] documented as of this encounter Visit Diagnoses Not on filedocumented in this encounter Care Teams Sow Farm Barn Technician Relationship Specialty Start Date End Date Ren Vaz MD [address] [facility] [place] [address] PCP - General 09/30/18 documented as of this encounter
--- OUTSIDE RECORDS SUMMARY | 2024-06-28 13:48 | XMS_ITS | Encounter Summary ---
Author Organization [facility] Address [address] [place] [address] Care Team Providers Care Marketing Assistant Manager Name Role Phone Emilee Cody MD Primary Care Provider + Reason for Visit * Reason Onset Date Comments Appointment Related 07/14/2018 cancelled 07/15 appt Encounter Details Date Type Department Care Team (Late st Contact Info) Description 07/14/2018 Telephone [facility] Endocrinology - [facility] [address] [place] [address] Wilder Zaidi DO 62 [facility] [address] [place] [address] Appointment Related (cancelled 07/15 appt) [...] Violet Artis - 07/14/2018 1703 EST Patients case resource manager called to cancel an appt for 07/[address] Zaidi as the patient also had an appt at [facility] Endocrinology for the same time documented in this encounter Plan of Treatment Upcoming Encounters Date Type Department Care Team (Late st Contact Info) Description 07/06/2024 13:40 EST Office Visit [facility] Endocrinology - [address] [address] Wilder Zaidi, 62 [facility] [address] [place] [phone] 09/09/2024 10:20 EST Office Visit [facility] Endocrinology - [address] [address] Day Littlejohn MD PhD [address] [place] [address] [place] [phone] documented as of this encounter Visit Diagnoses Not on filedocumented in this encounter Care Teams Marketing Assistant Manager Relationship Specialty Start Date End Date Emilee Cody MD [address] [place] [address] PCP - General 03/15/16 09/29/18 documented as of this encounter
--- OUTSIDE RECORDS SUMMARY | 2024-06-28 13:48 | XMS_ITS | Encounter Summary ---
Author Organization [facility] Address [address] [place] [address] Care Team Providers Care Skating Carhop Name Role Phone Yossi Torres MD Primary Care Provider [phone] Reason for Visit * Reason Onset Date Comments Diarrhea 08/28/2015 2 days now Medication Questions 08/28/2015 Hydrocortis one Coordination Of Care 08/30/2015 Medication clarification Encounter Details Date Type Department Care Team (Late st Contact Info) Description 08/28/2015 Telephone [facility] Endocrinology - [facility] [address] [place] [address] Wilder Zaidi, 62 [facility] [address] [place] [address] Diarrhea (2 days now); Medication [...] Encounter - Georgia Rice RN - 08/30/2015 1355 EST Phone call to Belgica at the [facility] Miguel Angel is not having diarrhea [...] Saenz - 08/30/2015 0820 EST Belgica from [facility] would like to verify the medication that Dr. Stanley wants them to increase the dose on. He continues to have diarrhea. Pls advise * Telephone Encounter - Gladys Huang RN - 08/29/2015 0922 EST Images from the original note were not included. Message Received: Yesterday ? Guerrero Gonzalez MD Sinclair, Barbara, RN ? Yes it should be doubled, the retirement physician should be notified so that he finds out thecause of the diarrhea, double dose as long as she is sick Phone call to [facility]. Above message given. Erick Kidd no longer has diarrhea so will not double dose. Verbalized understanding. No barriers to understanding. * Telephone Encounter - Gladys Huang RN - 08/28/2015 1530 EST Phone call to Adriane at [facility]. Diarrhea since mid day yesterday. Today 4 times since 8 am. No other symptoms. Feeling ok. No fever. Eating well. Drinking good. Will send to Dr. Stanley for review. * Telephone Encounter - Alicia Chi - 08/28/2015 1501 EST Reason for Call: Diarrhea and Medication Questions Summary/Symptoms: Erick Forrest, caregiver at the [facility], pt has had diarrhea for 2 days now and pt's family is wondering if the hydrocortisone should be doubled. Adriane requesting a call back today when a moment. Please call her back at [phone] or [phone]. Alicia Chi 08/28/2015 15:01 documented in this encounter Plan of Treatment Upcoming Encounters Date Type Department Care Team (Late st Contact Info) Description 07/06/2024 13:40 EST Office Visit [facility] Endocrinology - [address] [address] Wilder Zaidi, 62 [facility] [address] [place] [phone] 09/09/2024 10:20 EST Office Visit [facility] Endocrinology - [address] [address] Day Littlejohn MD PhD 62 [facility] [address] [place] [phone] documented as of this encounter Visit Diagnoses Not on filedocumented in this encounter Care Teams Skating Carhop Relationship Specialty Start Date End Date Yossi Torres MD [address] [place] [address] [address] [place] [phone] PCP - General 04/17/11 03/14/16 documented as of this encounter
--- OUTSIDE RECORDS SUMMARY | 2024-06-28 13:48 | XMS_ITS | Encounter Summary ---
Author Organization [facility] Address [address] [place] [address] Care Team Providers Care Medical Staff Physician Name Role Phone Ren Vaz MD Primary Care Provider [phone] Reason for Visit * Reason Onset Date Comments Follow-up 01/04/2020 Encounter Details Date Type Department Care Team (Late st Contact Info) Description 01/04/2020 Telephone [facility] Endocrinology - [facility] [address] [place] [address] Wilder Zaidi, 62 [facility] [address] [place] [address] Follow-up Social History Tobacco Use [...] progress note printed. Both documents faxed to [phone] by this policy writer typist. Informed to call back if needs more information. LESLEY COURTNEY RN 01/04/2020 16:49 * Telephone Encounter - Lesley Jeffrey RN - 01/04/2020 1315 EDT Kwesi calling from [facility] 01/04/20 13:16 Need a referral to be able to draw the lab requisitions that were electronically faxed 01/04/20 by this policy writer typist. [facility] 1. Facility needs referral to be completed/signed by provider 2. Include last progress note 3. Attention : not necessary Kwesi will be faxing the referral to [phone]. The fax will be to this policy writer typist's attention. Referral received 01/04/20 at 12:18. Form will be handed to the provider. LESLEY COURTNEY RN 01/04/2020 13:21 * Telephone Encounter - Debbie Choudhary - 01/04/2020 1313 EDT Raphael calling back for Lesley. documented in this encounter Plan of Treatment Upcoming Encounters Date Type Department Care Team (Late st Contact Info) Description 07/06/2024 13:40 EST Office Visit [facility] Endocrinology - [address] [address] Wilder Zaidi, DO 62 [facility] [address] [place] [address] 09/09/2024 10:20 EST Office Visit [facility] Endocrinology - [facility] [address] [place] [address] Day Littlejohn MD PhD 62 [facility] [address] [place] [address] documented as of this encounter Visit Diagnoses Not on filedocumented in this encounter Care Teams Medical Staff Physician Relationship Specialty Start Date End Date Ren Vaz MD [facility] [place] [address] PCP - General 09/30/18 documented as of this encounter
--- OUTSIDE RECORDS SUMMARY | 2024-06-28 13:48 | XMS_ITS | Encounter Summary ---
Author Organization [facility] Address [address] [place] [address] Care Team Providers Care Reserves Clerk Name Role Phone Yossi Torres MD Primary Care Provider [phone] Reason for Visit * Reason Onset Date Comments Discuss Test Results 10/19/2015 Lab work Encounter Details Date Type Department Care Team (Late st Contact Info) Description 10/19/2015 Telephone [facility] Endocrinology - [facility] [address] [place] [address] Wilder Zaidi DO 62 [facility] [address] [place] [address] Discuss Test Results (Lab work) [...] Encounter - Georgia Rice RN - 10/19/2015 1534 EDT Phone call to Krissy Informed her of Dr. Zaidi's review, and message below. Verbalizes understanding with no barriers. * Telephone Encounter - Wilder Zaidi DO - 10/19/2015 1255 EDT Please contact pt's facility. No change in DDAVP or fluid prescription. Recheck sodium in 6-8 weeksor if there is any change in patient's symptoms * Telephone Encounter - Georgia Rice RN - 10/19/2015 1141 EDT Phone call to [facility] [place] Faxing results from 10/17/15 Sodium 140 (136-145) * Telephone Encounter - Josefina Rivera - 10/19/2015 1041 EDT Reason for Call: Discuss Test Results Summary/Symptoms: Lali Denise from [facility] is wanting the lab results for this patient. Please call back. Spoke with Georgia and results were not in yet. Josefina Rivrea 10/19/2015 10:41 documented in this encounter Plan of Treatment Upcoming Encounters Date Type Department Care Team (Late st Contact Info) Description 07/06/2024 13:40 EST Office Visit [facility] Endocrinology - [address] [address] Wilder Zaidi DO [address] [place] [address] 09/09/2024 10:20 EST Office Visit [facility] Endocrinology - [address] [address] Day Littlejohn MD PhD [address] [place] [address] documented as of this encounter Visit Diagnoses Not on filedocumented in this encounter Care Teams Reserves Clerk Relationship Specialty Start Date End Date Yossi Torres MD [address] [place] [address] [address] [place] [phone] PCP - General 04/17/11 03/14/16 documented as of this encounter
--- OUTSIDE RECORDS SUMMARY | 2024-06-28 13:48 | XMS_ITS | Encounter Summary ---
Author Organization [facility] Address [address] [place] [address] Care Team Providers Care Hog Operator Name Role Phone Emilee Cody MD Primary Care Provider + Reason for Visit * Reason Onset Date Comments Discuss Test Results 06/13/2016 Encounter Details Date Type Department Care Team (Late st Contact Info) Description 06/13/2016 Telephone [facility] Endocrinology - [facility] [address] [place] [address] Wilder Zaidi, 62 [facility] [address] [place] [address] Discuss Test Results Social History [...] Telephone Encounter - Tracy Cowan - 06/13/2016 4238 EST Lail from [facility] calling for sodium results drawn a few weeks ago @ [facility] documented in this encounter Plan of Treatment Upcoming Encounters Date Type Department Care Team (Late st Contact Info) Description 07/06/2024 13:40 EST Office Visit [facility] Endocrinology - [facility] [address] [place] [address] Wilder Zaidi, 62 [facility] [address] [place] [address] 09/09/2024 10:20 EST Office Visit [facility] Endocrinology - [facility] [address] [place] [address] Day Littlejohn MD PhD [address] [address] documented as of this encounter Visit Diagnoses Not on filedocumented in this encounter Care Teams Hog Operator Relationship Specialty Start Date End Date Emilee Cody MD [address] [place] [address] PCP - General 03/15/16 09/29/18 documented as of this encounter
--- OUTSIDE RECORDS SUMMARY | 2024-06-28 13:48 | XMS_ITS | Encounter Summary ---
Author Organization [facility] Address [address] [place] [address] Care Team Providers Care Shaving Machine Operator Name Role Phone Yossi Torres MD Primary Care Provider [phone] Emilee Cody MD Primary Care Provider + Reason for Visit * Reason Onset Date Comments Prior Auth, Medication 03/13/2016 levothyro xine Encounter Details Date Type Department Care Team (Late st Contact Info) Description 03/13/2016 Telephone [facility] End[facility]ology - [facility] [address] [place] [address] Wilder Zaidi, [address] [facility] [address] [place] [address] Prior Auth, Medication (levothyroxine) Social [...] Durant - 03/13/2016 1311 EDT Miguel Angel's case hardener called to advise that the pharmacy has [...] Info) Description 07/06/2024 13:40 EST Office Visit [facility] End[facility]ology - [address] [address] Wilder Zaidi, [address] [address] 09/09/2024 10:20 EST Office Visit [facility] Endocrinology - [address] [address] Day Littlejohn MD PhD [address] [place] [phone] documented as of this encounter Visit Diagnoses Not on filedocumented in this encounter Discontinued Medications Medication Sig Discontinue Reason Start Date End Da te levothyroxine (SYNTHROID) 150 mcg tablet TAKE ONE TABLET BY MOUTH EVERY DAY Reorder 05/04/2015 03/18/2016 documented as of this encounter Care Teams Shaving Machine Operator Relationship Specialty Start Date End Date Yossi Torres MD [address] [place] [address] DR BUITRAGO [address] [place] [phone] PCP - General 04/17/11 03/14/16 Emilee Cody MD [address] [place] [id number] PCP - General 03/15/16 09/29/18 documented as of this encounter
--- OUTSIDE RECORDS SUMMARY | 2024-06-28 13:48 | XMS_ITS | Encounter Summary ---
Author Organization [facility] Address [address] [place] [address] Care Team Providers Care Sheet Manufacturing Supervisor Name Role Phone Yossi Torres MD Primary Care Provider [phone] Reason for Visit * Reason Onset Date Comments Discuss Test Results 06/20/201506/12 [facility] Encounter Details Date Type Department Care Team (Late st Contact Info) Description 06/20/2015 Telephone [facility] Endocrinology - [facility] [address] [place] [address] Wilder Zaidi DO [address] [facility] [address] [place] [address] Discuss Test Results (06/12 [facility] ) Social History Tobacco Use Types [...] Telephone Encounter - [place] Chavez - 06/22/2015 0857 EST Spoke to Lali, the nurse at [...] Sodium 145 (136-145) * Telephone Encounter - Jen Sanchez - 06/20/2015 1522 EST Reason for Call: Discuss Test Results Summary/Symptoms: Lali from [facility] calling for results. States kabs were done 06/12 [facility]. Please call. Jen Sanchez 06/20/2015 15:22 documented in this encounter Plan of Treatment Upcoming Encounters Date Type Department Care Team (Late st Contact Info) Description 07/06/2024 13:40 EST Office Visit [facility] Endocrinology - [address] [address] Wilder Zaidi, [address] [address] 09/09/2024 10:20 EST Office Visit [facility] Endocrinology - [address] [phone] Day Littlejohn MD PhD [address] [place] [address] [place] [phone] documented as of this encounter Visit Diagnoses Not on filedocumented in this encounter Care Teams Sheet Manufacturing Supervisor Relationship Specialty Start Date End Date Yossi Torres MD [address] [place] [address] DR BUITRAGO [address] [place] [phone] PCP - General 04/17/11 03/14/16 documented as of this encounter
--- OUTSIDE RECORDS SUMMARY | 2024-06-28 13:48 | XMS_ITS | Encounter Summary ---
Author Organization [facility] Address [address] [place] [address] Care Team Providers Care Horseradish Grinder Name Role Phone Ren Vaz MD Primary Care Provider [phone] Reason for Visit * Reason Comments Pituitary Abnormality Encounter Details Date Type Department Care Team (Latest Contact Info) Description 10/01/2018 13:20 EDT Office Visit [facility] Endocrinology - [facility] [address] [place] [address] Wilder Zaidi, DO [address] [facility] [address] [place] [address] 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HCC-CMS) (Primary Dx); Primary [...] directly via e-mail with any scheduling issues ([email or web address]) documented in this encounter Progress Notes * [...] currently living in his own home in [place], [place]. He has 2 caretakers are with him 24 hours a day and administer all of his medications. Appears to be doing extremely well. This is the most interactive I seen Miguel Angel in any visit in the manyyears I been taking care of him. Unfortunately, Miguel Angel was hospitalized at [facility] from 09/02/2017 until 03/12/2018 due to [...] as his follow- up endocrinology visit at [facility]. ?? With regards to his secondary [...] unchanged. No need to stress dose. His environmental resource specialist was able to articulate how and when [...] I believe they are doing them on amonthly basis at this point. We can likely [...] receive his endocrine care here at the [facility] despite living in [place]. However, if he is hospitalized he will likely be sent to [facility] and I be happy to coordinate with our endocrinology group as needed. 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 cyclobenzaprine (FLEXERIL) 10 mg tablet Take 10 [...] daily. added in this encounter Care Teams Horseradish Grinder Relationship Specialty Start Date End Date Ren Vaz MD [facility] [place] [address] PCP - General 09/30/18 documented as of this encounter
--- OUTSIDE RECORDS SUMMARY | 2024-06-28 13:48 | XMS_ITS | Encounter Summary ---
Author Organization [facility] Address [address] [place] [address] Care Team Providers Care Furniture And Bedding Inspector Name Role Phone Ren Vaz MD Primary Care Provider [phone] Encounter Details Date Type Department Care Team (Late st Contact Info) Description 07/30/2019 Lab Requisition [facility] Pathology & Laboratory Medicine - [address] [address] Unknown, Provider, Social History Tobacco Use Types [...] Description 07/06/2024 13:40 EST Office Visit [facility] Endocrinology - [place] [address] [place] [address] Wilder Zaidi, DO [address] [facility] [address] [place] [address] 09/09/2024 10:20 EST Office Visit [facility] Endocrinology - [facility] [address] [place] [address] Day Littlejohn MD PhD [address] [facility] [address] [place] [address] documented as of this encounter Procedures Procedure Name Priority Date/Time Associated Diagnosis Comments CALCIUM, IONIZED Routine 07/30/2019 11:5 9 EST documented in this encounter Results * CALCIUM, IONIZED (07/30/2019 11:59 EST) Calcium, Ionized 1.12 1.12 - 1.32 mmol/L 07/30/2019 16:51 EST [facility] Comment:Testing performed on heparinized plasma. Results may be biased 5% lower than that of whole blood. Blood VENOUS BLOOD / Unknown 07/30/2019 11:59 EST 07/30/2019 16:41 EST us Provider Unknown CHEMISTRY & BLOOD GAS ORDERA BLES Final Result [facility] [address] [place] [address] documented in this encounter Visit Diagnoses Not on filedocumented in this encounter Care Teams Furniture And Bedding Inspector Relationship Specialty Start Date End Date Ren Vaz MD [facility] [place] [address] PCP - General 09/30/18 documented as of this encounter
--- OUTSIDE RECORDS SUMMARY | 2024-06-28 13:48 | XMS_ITS | Encounter Summary ---
Author Organization [facility] Address [address] [place] [address] Care Team Providers Care Lump Inspector Name Role Phone Ren Vaz MD Primary Care Provider [phone] Reason for Visit * Reason Onset Date Comments Labs Only 03/03/2019 Encounter Details Date Type Department Care Team (Late st Contact Info) Description 03/03/2019 Telephone [facility] Endocrinology - [facility] [address] [place] [address] Wilder Zaidi, DO 62 [facility] [address] [place] [address] Labs Only Social History Tobacco [...] - Carlos Alberto Benitez RN - 03/03/2019 6315 EDT Called and left message for Evelyn relaying Dr. Zaidi's message below: Would have electrolytes drawn every 3 months with a as needed order if there is any significant change in behavior Standing lab orders for electrolytes faxed to [facility] as requested for Electrolytes as requested. Labs printed and faxed to [facility] * Telephone Encounter - Wilder Zaidi Do - 03/03/2019 9544 EDT Would have electrolytes drawn every 3 months with a as needed order if there is any significant change in behavior * Telephone Encounter - Alicia Chi - 03/03/2019 1422 EDT Per Evelyn, please fax lab orders to [facility] [phone]. Per Evelyn, needs toknow when his last lab was done and if received as well as how often he should be having the labs done. Evelyn is requesting a call back today when a moment. 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
--- OUTSIDE RECORDS SUMMARY | 2024-06-28 13:48 | XMS_ITS | Encounter Summary ---
Author Organization [facility] Address [address] [place] [address] Care Team Providers Care Coarse Wire Drawer Name Role Phone Emilee Cody MD Primary Care Provider + Reason for Visit * Reason Onset Date Comments Medication Questions 07/16/2016 Encounter Details Date Type Department Care Team (Late st Contact Info) Description 07/16/2016 Telephone [facility] Endocrinology - [facility] [address] [place] [address] Wilder Zaidi, 62 [facility] [address] [place] [address] Medication Questions Social History Tobacco [...] Info) Description 07/06/2024 13:40 EST Office Visit [facility] Endocrinology - [address] [address] Wilder Zaidi, [address] [place] [phone] 09/09/2024 10:20 EST Office Visit [address] [address] Day Littlejohn MD PhD [address] [place] [phone] documented as of this encounter Visit Diagnoses Not on filedocumented in this encounter Care Teams Coarse Wire Drawer Relationship Specialty Start Date End Date Emilee Cody MD [address] [place] [phone] PCP - General 03/15/16 09/29/18 documented as of this encounter
--- OUTSIDE RECORDS SUMMARY | 2024-06-28 13:48 | XMS_ITS | Encounter Summary ---
Author Organization [facility] Address [address] [place] [address] Care Team Providers Care Security Shift Supervisor Name Role Phone Yossi Torres MD Primary Care Provider [phone] Reason for Visit * Reason Onset Date Comments Appointment Related 02/06/2016 was schedule d for 03/18/16 Encounter Details Date Type Department Care Team (Late st Contact Info) Description 02/06/2016 Telephone [facility] Endocrinology - [facility] [address] [place] [address] Wilder Zaidi, 62 [facility] [address] [place] [address] Appointment Related (was scheduled for [...] EDT Reason for Call: Appointment Related Summary/Symptoms: [facility] is wondering when patient's upcoming appointment was. The 03/18/16 was canceled, and not only would they like a call when it is scheduled, but his sister Bettinaas well. Josefina iRvera 02/06/2016 15:04 documented in this encounter Plan of Treatment Upcoming Encounters Date Type Department Care Team (Late st Contact Info) Description 07/06/2024 13:40 EST Office Visit [facility] Endocrinology - [address] [address] Wilder Zadii, [address] [address] 09/09/2024 10:20 EST Office Visit [facility] Endocrinology - [address] [address] Day Littlejohn MD PhD [address] [place] [phone] documented as of this encounter Visit Diagnoses Not on filedocumented in this encounter Care Teams Security Shift Supervisor Relationship Specialty Start Date End Date Yossi Torres MD [address] [place] [address] DR BUITR[address]O [address] [place] [phone] PCP - General 04/17/11 03/14/16 documented as of this encounter
--- OUTSIDE RECORDS SUMMARY | 2024-06-28 13:48 | XMS_ITS | Encounter Summary ---
Author Organization [facility] Address [address] [place] [address] Care Team Providers Care Workers' Compensation Hearings Officer Name Role Phone Ren Vaz MD Primary Care Provider [phone] Encounter Details Date Type Department Care Team (Late st Contact Info) Description 07/30/2019 Lab Requisition [facility] Pathology & Laboratory Medicine - [address] [address] Unknown, Provider, Social History Tobacco Use Types [...] Info) Description 07/06/2024 13:40 EST Office Visit [facility] Endocrinology - [facility] [address] [place] [address] Wilder Zaidi, 62 [facility] [address] [place] [address] 09/09/2024 10:20 EST Office Visit [facility] Endocrinology - [facility] [address] [place] [address] Day Littlejohn MD PhD [address] [facility] [address] [place] [address] documented as of this encounter Procedures Procedure Name Priority Date/Time Associated Diagnosis Comments HEPATITIS C AB W REFLEX TO HCV RNA BY PCR Routine 07/30/2019 11:59 EST HEPATITIS B SURFACE ANTIGEN Routine 07/30/2019 11:59 EST documented in this encounter Results * HEPATITIS B SURFACE ANTIGEN (07/30/2019 11:59 EST) Hep B Surface Ag Negative Negative 08/02/2019 9:49 EST [facility] Blood VENOUS BLOOD / Unknown 07/30/2019 11:59 EST 07/30/2019 16:46 EST us Provider Unknown CHEMISTRY & BLOOD GAS ORDERA BLES Final Result [facility] [address] [place] [address] * HEPATITIS C AB W REFLEX TO HCV RNA BY PCR (07/30/2019 11:59 EST) Hep C Antibody Negative Negative 08/02/2019 11:26 EST [facility] Blood VENOUS BLOOD / Unknown 07/30/2019 11:59 EST 07/30/2019 16:45 EST us Provider Unknown CHEMISTRY & BLOOD GAS ORDERA BLES Final Result [facility] [address] [place] [address] documented in this encounter Visit Diagnoses Not on filedocumented in this encounter Care Teams Workers' Compensation Hearings Officer Relationship Specialty Start Date End Date Ren Vaz MD [address] [place] [address] PCP - General 09/30/18 documented as of this encounter
--- OUTSIDE RECORDS SUMMARY | 2024-06-28 13:48 | XMS_ITS | Encounter Summary ---
Author Organization [facility] Address [address] [place] [address] Care Team Providers Care Ad Operations Intern Name Role Phone Emilee Cody MD Primary Care Provider + Reason for Visit * Reason Onset Date Comments Discuss Test Results 06/25/201606/21 @[facility] Discuss Test Results 06/25/2016 Sodium Results 07/04/2016 Encounter Details Date Type Department Care Team (Late st Contact Info) Description 06/25/2016 Telephone [facility] Endocrinology - [facility] [address] [place] [address] Wilder Zaidi DO [address] [facility] [address] [place] [address] Discuss Test Results (06/21 @[facility]); Discuss Test Results (Sodium); Results Social [...] Encounter - Jennifer Au RN - 07/10/2016 5226 EST Spoke to Jessika and relayed Dr. Pa recommendation to recheck labs in 3 months./JOSE * Telephone Encounter - Wilder Zaidi DO - 07/10/2016 1431 EST No change. Sodium in normal range. Recheck in 3 moths or if there is change in behavior or clinicalstatus. * Telephone Encounter - Jennifer Au RN - 07/10/2016 1317 EST Called [place] looking for latest sodium labs from 07/09. Sodium remains at 140. * Telephone Encounter - Jennifer Au RN - 07/08/2016 1009 EST Spoke with - at [place], confirming that Miguel Angel is on fluid restrictions of 110 ounces daily. Willhave sodium drawn tomorrow at [facility]. /JOSE * Telephone Encounter - Wilder Zaidi DO - 07/08/2016 0948 EST Retest sodium. Call [place] Lamarnce with results. Please have them confirm current [...] Maxine Roy - 07/04/2016 0927 EST Lali @[facility] states his sodium level was drawn on 06/21 @[facility] and was at 140. Requesting Dr[address] Pa advice as to when to re-test. * Telephone Encounter - aPtrica Mari - 07/03/2016 1501 EST Lali calling for Sodium test result. Please call. * Telephone Encounter - Maxine Roy - 06/25/2016 0900 EST Jose Manuel checking to see if the pt's lab results from 06/21 have been received from [facility]. documented in this encounter Plan of Treatment Upcoming Encounters Date Type Department Care Team (Late st Contact Info) Description 07/06/2024 13:40 EST Office Visit [facility] Endocrinology - [address] [phone] Wilder Zaidi, DO [address] [place] [phone] 09/09/2024 10:20 EST Office Visit [facility] Endocrinology - [address] [phone] Day Littlejohn MD PhD [address] [place] [phone] documented as of this encounter Visit Diagnoses Not on filedocumented in this encounter Care Teams Ad Operations Intern Relationship Specialty Start Date End Date Emilee Cody MD [address] [place] [phone] PCP - General 03/15/16 09/29/18 documented as of this encounter
--- OUTSIDE RECORDS SUMMARY | 2024-06-28 13:48 | XMS_ITS | Encounter Summary ---
Author Organization [facility] Address [address] [place] [address] Care Team Providers Care Content Producer Name Role Phone Emilee Cody MD Primary Care Provider + Reason for Visit * Reason Onset Date Comments Prior Auth, Medication 06/14/2016 Levothyro xine Encounter Details Date Type Department Care Team (Late st Contact Info) Description 06/14/2016 Telephone [facility] Endocrinology - [facility] [address] [place] [address] Wilder Zaidi, 62 [facility] [address] [place] [address] Prior Auth, Medication (Levothyroxine) Social [...] DAY/ Blister pack 30 Tab 11 06/14/2016 7 documented in this encounter Miscellaneous Notes * Telephone Encounter - ChavezBelgica harmon - 06/14/2016 1128 EST Spoke to lali, [...] Mari - 06/14/2016 0839 EST Lali from [facility] calling states that pt will be out of medication tomorrow and that they need an urgent PA for Levothyroxine. Please call. documented in this encounter Plan of Treatment Upcoming Encounters Date Type Department Care Team (Late st Contact Info) Description 07/06/2024 13:40 EST Office Visit [facility] Endocrinology - [address] [phone] Wilder Zaidi, [address] [place] [phone] 09/09/2024 10:20 EST Office Visit [facility] Endocrinology - [address] [phone] Day Littlejohn MD PhD [address] [place] [phone] documented as of this encounter Visit Diagnoses Not on filedocumented in this encounter Discontinued Medications Medication Sig Discontinue Reason Start Date End Da te levothyroxine (SYNTHROID) 150 mcg tablet TAKE ONE TABLET BY MOUTH EVERY DAY Reorder 05/01/2016 06/14/2016 documented as of this encounter Care Teams Content Producer Relationship Specialty Start Date End Date Emilee Cody MD [address] [place] [id number] PCP - General 03/15/16 09/29/18 documented as of this encounter
--- OUTSIDE RECORDS SUMMARY | 2024-06-28 13:48 | XMS_ITS | Encounter Summary ---
Author Organization [facility] Address [address] [place] [address] Care Team Providers Care Casualty Insurance Claim Adjuster Name Role Phone Emilee Cody MD Primary Care Provider + Reason for Visit * Reason Onset Date Comments Medications Refill 05/01/2016 Encounter Details Date Type Department Care Team (Late st Contact Info) Description 05/01/2016 Refill [facility] Endocrinology - [facility] [address] [place] [address] Wilder Zaidi, [address] [facility] [address] [place] [address] Medications Refill Social History Tobacco [...] Info) Description 07/06/2024 13:40 EST Office Visit [facility] Endocrinology [address] [phone] Wilder Zaidi, [address] [place] [phone] 09/09/2024 10:20 EST Office Visit [address] [address] Day Littlejohn MD PhD [address] [place] [phone] documented as of this encounter Visit Diagnoses Not on filedocumented in this encounter Discontinued Medications Medication Sig Discontinue Reason Start Date End Da te levothyroxine (SYNTHROID) 150 mcg tablet TAKE ONE TABLET BY MOUTH EVERY DAY Reorder 03/18/2016 05/01/2016 documented as of this encounter Care Teams Casualty Insurance Claim Adjuster Relationship Specialty Start Date End Date Emilee Cody MD [address] [place] [id number] PCP - General 03/15/16 09/29/18 documented as of this encounter
--- OUTSIDE RECORDS SUMMARY | 2024-06-28 13:49 | XMS_ITS | Encounter Summary ---
Author Organization [facility] Address [address] [place] [address] Care Team Providers Care Penetration Tester Name Role Phone Yossi Torres MD Primary Care Provider +1 [phone] Reason for Visit * Reason Comments Other Encounter Details Date Type Department Care Team (Late st Contact Info) Description 08/25/2014 Refill [facility] Endocrinology [facility] [address] [place], [place] [phone] Day Littlejohn MD PhD 62 [facility] [address] [place] [address] Other Social History Tobacco Use [...] Visit [facility] Endocrinology [facility] [address] [place] [address] Wilder Zaidi, 62 [facility] [address] [place] [address] 09/09/2024 10:20 EST Office Visit [facility] Endocrinology - [facility] [address] [place] [address] Day Littlejohn MD PhD 62 [facility] [address] [place] [address] documented as of this encounter Visit Diagnoses Not on filedocumented in this encounter Discontinued Medications Medication Sig Discontinue Reason Start Date End Da te levothyroxine (SYNTHROID) 150 mcg tablet Take 1 Tab by mouth daily. Reorder 09/01/2013 08/25/2014 documented as of this encounter Care Teams Penetration Tester Relationship Specialty Start Date End Date Yossi Torres MD [address] [place] [address] [address] BU[address]RAGO [address] [place] [phone] PCP - General 04/17/11 03/14/16 documented as of this encounter
--- OUTSIDE RECORDS SUMMARY | 2024-06-28 13:49 | XMS_ITS | Encounter Summary ---
Author Organization [facility] Address [address] [place] [address] Care Team Providers Care Consultant Nurse Name Role Phone Yossi Torres MD Primary Care Provider +1 [phone] Reason for Visit * Reason Comments Other Encounter Details Date Type Department Care Team (Late st Contact Info) Description 01/12/2013 Refill [facility] Endocrinology [facility] [address] [place], [place] [phone] Wilder Zaidi, 62 [facility] [address] [place] [address] Other Social History Tobacco Use [...] Refills Last Filled Start Date End Date desmopressin (DDAVP) 0.1 mg tablet TAKE ONE TABLET BY MOUTH EVERY MORNING AND ONE HALF TABLET AT BEDTIME 45 Tab 0 01/12/2013 3 documented in this encounter Plan of Treatment Upcoming Encounters Date Type Department Care Team (Late st Contact Info) Description 07/06/2024 13:40 EST Office Visit [facility] Endocrinology [facility] [address] [place], [place] [phone] Wilder Zaidi, DO 62 [facility] [address] [place] [address] 09/09/2024 10:20 EST Office Visit [facility] Endocrinology - [facility] [address] [place] [address] Day Littlejohn MD PhD 62 [facility] [address] [place] [address] documented as of this encounter Visit Diagnoses Not on filedocumented in this encounter Discontinued Medications Medication Sig Discontinue Reason Start Date End Da te desmopressin (DDAVP) 0.1 mg tablet TAKE ONE TABLET BY MOUTH EVERY MORNING AND 1/2 TABLET AT BEDTIME Reorder 04/16/2012 01/12/2013 documented as of this encounter Care Teams Consultant Nurse Relationship Specialty Start Date End Date Yossi Torres MD [address] [place] [address] DR BUITRAGO [address] [place] [phone] PCP - General 04/17/11 03/14/16 documented as of this encounter
--- OUTSIDE RECORDS SUMMARY | 2024-06-28 13:49 | XMS_ITS | Encounter Summary ---
Author Organization [facility] Address [address] [place] [address] Care Team Providers Care Sheet Metal Insulator Name Role Phone Yossi Torres MD Primary Care Provider +[phone]- [phone] Reason for Visit * Reason Onset Date Comments Labs Only 01/10/2015 Returning Call 01/10/2015 [place] Encounter Details Date Type Department Care Team (Late st Contact Info) Description 01/10/2015 Telephone [facility] Endocrinology - [facility] [address] [place] [address] Wilder Zaidi, 62 [facility] [address] [place] [address] Labs Only; Returning Call ([place]) [...] 01/10/2015 1603 EDT 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 They did increase his fluids to 70 [...] in 7 days. * Telephone Encounter - [place] Chavez - 01/10/2015 1313 EDT Telephone call to [facility] lab. 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
--- OUTSIDE RECORDS SUMMARY | 2024-06-28 13:49 | XMS_ITS | Encounter Summary ---
Author Organization [facility] Address [address] [place] [address] Care Team Providers Care Clothes Drier Assembler Name Role Phone Yossi Torres MD Primary Care Provider [phone] Reason for Visit * Reason Comments Hypothyroidism F/U Encounter Details Date Type Department Care Team (Latest Contact Info) Description 08/04/2014 14:20 EST Office Visit [facility] Endocrinology - [facility] [address] [place] [address] Wilder Zaidi, DO 62 [facility] [address] [place] [address] 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HCC-CMS) (Primary Dx); Primary [...] Mood seems stable. LABORATORY DATA: Obtained at [facility] on 08/01/2013 showed a sodium of 131. [...] Info) Description 07/06/2024 13:40 EST Office Visit [facility] Endocrinology - [facility] [address] [place] [address] Wilder Zaidi, 62 [facility] [address] [place] [address] 09/09/2024 10:20 EST Office Visit [facility] Endocrinology - [facility] [address] [place] [address] Day Littlejohn MD PhD 62 [facility] [address] [place] [address] documented as of this encounter Results * (ABNORMAL) ELECTROLYTES (08/04/2014 15:24 EST) Sodium 125(L) 136 - 145 mEq/L 08/04/2014 20:16 [facility] Potassium 4.0 3.5 - 5.0 mEq/L 08/04/2014 20:16 [facility] Chloride 89(L) 96 - 110 mEq/L 08/04/2014 20:16 [facility] CO2 28 24 - 32 mEq/L 08/04/2014 20:16 [facility] Blood specimen (specimen) BLOOD SPECIMEN / Unknown 08/04/2014 15:24 EST 08/04/2014 19:15 EST us Wilder Zaidi DO CHEMISTRY & BLOOD GAS ORDERABLES Final Result [facility] [address] [place] [address] * T3 FREE (08/04/2014 15:24 EST) T3, Free 2.5 2.3 - 4.2 pg/mL 08/04/2014 21:27 [facility] Blood specimen (specimen) BLOOD SPECIMEN / Unknown 08/04/2014 15:24 EST 08/04/2014 19:15 EST us Wilder Zaidi DO CHEMISTRY & BLOOD GAS ORDERABLES Final Result Performing Organization Address [facility]/ZIP Co de Phone Number [facility] [address] [place] [address] * T4 FREE (08/04/2014 15:24 EST) Free T4 1.4 0.8 - 1.8 ng/dl 08/04/2014 21:27 EST [facility] Blood specimen (specimen) BLOOD SPECIMEN / Unknown 08/04/2014 15:24 EST 08/04/2014 19:15 EST Wilder Zaidi DO CHEMISTRY & BLOOD GAS ORDERABLES Final Result Performing Organization Address [facility] Co de Phone Number [facility] [address] [place] [address] documented in this encounter Visit Diagnoses Diagnosis 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HCC-CMS)- Primary Panhypopituitarism 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HCC-CMS) Diabetes insipidus Gonadotropin deficiency (HCC-CMS) Other anterior pituitary disorders Secondary hypothyroidism Other specified acquired hypothyroidism documented in this encounter Historical Medications * This list may reflect changes made after this encounter. testosterone (ANDROGEL) 1 % (50 mg/5 gram) gel packet Apply 5 g topically daily. HYDROCODONE/ACET AMINOPHEN (VICODIN ORAL) Take 5 mg by mouth. added in this encounter Care Teams Clothes Drier Assembler Relationship Specialty Start Date End Date Yossi Torres MD [address] [place] [address] DR BUITRAGO [address] [place] [phone] PCP - General 04/17/11 03/14/16 documented as of this encounter
--- OUTSIDE RECORDS SUMMARY | 2024-06-28 13:49 | XMS_ITS | Encounter Summary ---
Author Organization [facility] Address [address] [place] [address] Care Team Providers Care Double Cutter Name Role Phone Yossi Torres MD Primary Care Provider +1 [phone] Emilee Cody MD Primary Care Provider + Reason for Visit * Reason Onset Date Comments Results 08/05/2014 Encounter Details Date Type Department Care Team (Late st Contact Info) Description 08/05/2014 Telephone [facility] Endocrinology - [facility] [address] [place] [address] Wilder Zaidi DO 62 [facility] [address] [place] [address] Results Social History Tobacco Use [...] Encounter - Wilder Zaidi DO - 08/05/2014 9776 EST Spoke with sister. They held his am dose of DDAVP and he went for recheck of sodium. Will await results. Continue 40 oz and recheck sodium in 48 hours. Instructed Bettina to have Miguel Angel seen in ED if behavorial changes. * Telephone Encounter - [place] harmon - 08/05/2014 0831 EST She took him [...] patient's most recent laboratory results from the [facility] dated 08/04/14 . Advise patient that miguel [...] Description 07/06/2024 13:40 EST Office Visit [facility] Endocrinology - [address] [address] Wilder Zaidi DO [address] [place] [address] 09/09/2024 10:20 EST Office Visit [facility] Endocrinology - [address] [phone] Day Littlejohn MD PhD [address] [place] [address] documented as of this encounter Visit Diagnoses Not on filedocumented in this encounter Care Teams Double Cutter Relationship Specialty Start Date End Date Yossi Torres MD [address] [place] [address] 2 [place] [phone] PCP - General 04/17/11 03/14/16 Emilee Cody MD [address] [place] [phone] PCP - General 03/15/16 09/29/18 documented as of this encounter
--- OUTSIDE RECORDS SUMMARY | 2024-06-28 13:49 | XMS_ITS | Encounter Summary ---
Author Organization [facility] Address [address] [place] [address] Care Team Providers Care Medical Laboratory Assistant Name Role Phone Yossi Torres MD Primary Care Provider +1 [phone] Reason for Visit * Reason Comments Hypothyroidism Pituitary Abnormality Encounter Details Date Type Department Care Team (Latest Contact Info) Description 02/01/2014 10:40 EDT Office Visit [facility] Endocrinology - [facility] [address] [place] [phone] Wilder Zaidi, 62 [facility] [address] [place] [address] Central hypothyroidism (Primary Dx) Social [...] Refills Last Filled Start Date End Date testosterone (ANDROGEL) 20.25 mg/1.25 gram (1.62 %) transdermal gel pump Apply 1 pump actuation topically daily. 75 g 3 02/03/2014 5 documented in this encounter Progress Notes * Georiga Rice RN - 02/03/2014 1515 EDT Phoned [...] Mood has been stable, according to the project management analyst. LABORATORY DATA: Obtained on at [facility] on 01/21/2014 showed a sodium normal [...] Office Visit [facility] Endocrinology [address] [address] Wilder Zaidi DO [address] [place] [address] 09/09/2024 10:20 EST Office Visit [facility] Endocrinology [address] [address] Day Littlejohn MD PhD [address] [place] [address] documented as of this encounter Results * T4 FREE (02/01/2014 10:50 EDT) [facility] Signature Free T4 1.4 0.8 - 1.8 ng/dl [facility] Blood specimen (specimen) 02/01/2014 10:50 EDT 02/01/2014 15:54 EDT Wilder Zaidi DO CHEMISTRY & BLOOD GAS ORDERABLES Final Result [facility] [address] [place] [address] documented in this encounter Visit Diagnoses Diagnosis Central hypothyroidism- Primary Unspecified hypothyroidism documented in this encounter Discontinued Medications Medication Sig Discontinue Reason Start Date End Da te testosterone (ANDROGEL) 1 %(50 mg/5 gram) gel Place 5 g onto the skin daily. Pt needs appt for further refills. 02/01/2013 02/03/2014 documented as of this encounter Care Teams Medical Laboratory Assistant Relationship Specialty Start Date End Date Yossi Torres MD [address] [place] [address] [address]O [address] [place] [phone] PCP - General 04/17/11 03/14/16 documented as of this encounter
--- OUTSIDE RECORDS SUMMARY | 2024-06-28 13:49 | XMS_ITS | Encounter Summary ---
Author Organization [facility] Address [address] [place] [address] Care Team Providers Care Rf Design Engineer Name Role Phone Yossi Torres MD Primary Care Provider [phone] [phone] Reason for Visit * Reason Comments Labs Only Encounter Details Date Type Department Care Team (Latest Contact Info) Description 08/04/2014 15:[address] [facility] Endocrinology - [address] [address] Unknown, Provider, Phlebotomy, [facility] 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CMS-HCC) (HCC-CMS); Secondary [...] Description 07/06/2024 13:[address] [facility] Endocrinology - [facility] [address] [place] [address] Wilder Zaidi, 62 [facility] [address] [place] [address] 09/09/2024 10:[address] [facility] Endocrinology - [facility] [address] [place] [address] Day Littlejohn MD PhD 62 [facility] [address] [place] [address] documented as of this encounter Procedures Procedure Name Priority Date/Time Associated Diagnosis Comments T3 FREE Routine 08/04/2014 15:24 EST Secondary hypothyroidism T4 FREE Routine 08/04/2014 15:24 EST Secondary hypothyroidism ELECTROLYTES Routine 08/04/2014 15:24 EST 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CMS-HCC) (HCC-CMS) documented in this encounter Results * T3 FREE (08/04/2014 15:24 EST) T3, Free 2.5 2.3 - 4.2 pg/mL 08/04/2014 21:27 EST [facility] Blood specimen (specimen) BLOOD SPECIMEN / Unknown 08/04/2014 15:24 EST 08/04/2014 19:15 EST us Wilder Zaidi DO CHEMISTRY & BLOOD GAS ORDERABLES Final Result [facility] [address] [place] [address] * T4 FREE (08/04/2014 15:24 EST) Free T4 1.4 0.8 - 1.8 ng/dl 08/04/2014 21:27 EST [facility] Blood specimen (specimen) BLOOD SPECIMEN / Unknown 08/04/2014 15:24 EST 08/04/2014 19:15 EST Wilder Zaidi DO CHEMISTRY & BLOOD GAS ORDERABLES Final Result Performing Organization Address [facility] de Phone Number [facility] [address] [place] [address] * (ABNORMAL) ELECTROLYTES (08/04/2014 15:24 EST) Sodium 125(L) 136 - 145 mEq/L 08/04/2014 20:16 EST [facility] Potassium 4.0 3.5 - 5.0 mEq/L 08/04/2014 20:16 EST [facility] Chloride 89(L) 96 - 110 mEq/L 08/04/2014 20:16 [facility] CO2 28 24 - 32 mEq/L 08/04/2014 20:16 EST [facility] Blood specimen (specimen) BLOOD SPECIMEN / Unknown 08/04/2014 15:24 EST 08/04/2014 19:15 EST Wilder Zaidi DO CHEMISTRY & BLOOD GAS ORDERABLES Final Result Performing Organization Address [facility] Co de Phone Number [facility] [address] [place] [address] documented in this encounter Visit Diagnoses Diagnosis 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HCC-CMS) Diabetes insipidus Secondary hypothyroidism Other specified acquired hypothyroidism documented in this encounter Care Teams Rf Design Engineer Relationship Specialty Start Date End Date Yossi Torres MD [address] [place] [address] DR BUITRAGO [address] [place] [phone] PCP - General 04/17/11 03/14/16 documented as of this encounter
--- OUTSIDE RECORDS SUMMARY | 2024-06-28 13:49 | XMS_ITS | Encounter Summary ---
Author Organization [facility] Address [address] [place] [address] Care Team Providers Care Bending Shed Worker Name Role Phone Yossi Torres MD Primary Care Provider [phone] Emilee Cody MD Primary Care Provider + Ren Vaz MD Primary Care Provider [phone] Reason for Visit * Reason Comments Other Encounter Details Date Type Department Care Team (Late st Contact Info) Description 03/03/2013 Refill [facility] Endocrinology - [facility] [address] [place] [address] Wilder Zaidi, [address] [facility] [address] [place] [address] Other Social History Tobacco Use [...] TABLET EVERY EVENING 45 Tab 0 03/03/2013 3 documented in this encounter Miscellaneous Notes * Telephone Encounter - Georgia Rice RN - 03/03/2013 1445 EDT Patient last visit 11/04/11. Dr. Zaidi wanted to see him back in 6 months. documented in this encounter Plan of Treatment Upcoming Encounters Date Type Department Care Team (Late st Contact Info) Description 07/06/2024 13:40 EST Office Visit [facility] Endocrinology - [address] [phone] Wilder Zaidi, DO [address] [place] [address] 09/09/2024 10:20 EST Office Visit [facility] Endocrinology - [address] [address] Day Littlejohn MD PhD [address] [place] [address] documented as of this encounter Visit Diagnoses Not on filedocumented in this encounter Discontinued Medications Medication Sig Discontinue Reason Start Date End Da te desmopressin (DDAVP) 0.1 mg tablet Take 1 tab PO q AM, 1/2 tab q PM - pt needs appt for further refills. Reorder 02/03/2013 03/03/2013 documented as of this encounter Care Teams Bending Shed Worker Relationship Specialty Start Date End Date Yossi Torres MD [address] [place] [address] [phone] PCP - General 04/17/11 03/14/16 Emilee Cody MD [address] [place] [phone] PCP - General 03/15/16 09/29/18 Ren Vaz MD [address] [place] [address] PCP - General 09/30/18 documented as of this encounter
--- OUTSIDE RECORDS SUMMARY | 2024-06-28 13:49 | XMS_ITS | Encounter Summary ---
Author Organization [facility] Address [address] [place] [address] Care Team Providers Care Florist'S Decorator Name Role Phone Yossi Torres MD Primary Care Provider [phone] Reason for Visit * Reason Onset Date Comments Labs Only 09/13/2012 Encounter Details Date Type Department Care Team (Late st Contact Info) Description 09/13/2012 Telephone [facility] Endocrinology - [address] [address] Ramon Lucero MD [address] [place] [address], [address] [phone] Labs Only Social History Tobacco [...] 60 oz fluid restriction. Investigate with new mattress spring encaser regarding inadvertent free water intake. Call lateafternoon [...] Info) Description 07/06/2024 13:40 EST Office Visit [facility] Endocrinology - [address] [address] Wilder Zaidi, [address] [address] 09/09/2024 10:20 EST Office Visit [facility] Endocrinology - [address] [phone] Day Littlejohn MD PhD [address] [place] [address] documented as of this encounter Visit Diagnoses Not on filedocumented in this encounter Care Teams Florist'S Decorator Relationship Specialty Start Date End Date Yossi Torres MD [address] [place] [address] DR BUITRAGO [address] [place] [phone] PCP - General 04/17/11 03/14/16 documented as of this encounter
--- OUTSIDE RECORDS SUMMARY | 2024-06-28 13:49 | XMS_ITS | Encounter Summary ---
Author Organization [facility] Address [address] [place] [address] Care Team Providers Care Migration Specialist Name Role Phone Yossi Torres MD Primary Care Provider [phone] Reason for Visit * Reason Onset Date Comments Other 01/27/2014 Encounter Details Date Type Department Care Team (Late st Contact Info) Description 01/27/2014 Telephone [facility] - [facility] [address] [place] [address] Wilder Zaidi, 62 [facility] [address] [place] [address] Other Social History Tobacco Use [...] Info) Description 07/06/2024 13:40 EST Office Visit [facility] Endocrinology [address] [address] Wilder Zaidi, DO 62 [facility] [address] [place] [address] 09/09/2024 10:20 EST Office Visit [facility] Endocrinology - [facility] [address] [place] [address] Day Littlejohn MD PhD 62 [facility] [address] [place] [address] documented as of this encounter Visit Diagnoses Not on filedocumented in this encounter Care Teams Migration Specialist Relationship Specialty Start Date End Date Yossi Torres MD [address] [place] [address] [address] [place] [phone] PCP - General 04/17/11 03/14/16 documented as of this encounter
--- OUTSIDE RECORDS SUMMARY | 2024-06-28 13:49 | XMS_ITS | Encounter Summary ---
Author Organization Health system Address [address] [place] [address] Care Team Providers Care Brim Stitcher Name Role Phone Yossi Torres MD Primary Care Provider +1 [phone] Reason for Visit * Reason Comments Labs Only Encounter Details Date Type Department Care Team (Latest Contact Info) Description 07/26/2013 12:00 EST Procedure visit [facility] End[facility]ology - [address] [address] Unknown, Provider, Phlebotomy, 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[facility]) ([facility]); Secondary hypothyroidism Discharge Disposition: Auto Discharge Social [...] 07/06/2024 13:40 EST Office Visit [facility] - [address] [address] Wilder Zaidi, 62 [facility] [address] [place] [phone] 09/09/2024 10:20 EST Office Visit [facility] - [address] [address] Day Littlejohn MD PhD 62 [facility] [address] [place] [phone] documented as of this encounter Procedures [...] LAB RBC 5.66 4.36 - 5.78 M/cmm [facility] Hemoglobin 15.4 13.8 - 17.3 gm/dl [facility] HCT 45.4 39.5 - 50.2 % [facility] MCV 80(L) 81 - 95 fl [facility] MCH 27.2(L) 27.6 - 33.0 pg [facility] MCHC 33.9 32.8 - 36.4 gm/dl [facility] PLT 148 141 - 320 K/cmm [facility] RDW-CV 14.5(H) 11.8 - 14.1 % [facility] Blood specimen (specimen) 07/26/2013 12:17 EST 07/26/2013 15:09 EST Wilder Zaidi DO HEMATOLOGY & PF4 ORDER LYNDSEY Final Result Performing Organization Address [facility] Co de Phone Number [facility] [address] [place] [address] * (ABNORMAL) T4 FREE (07/26/2013 12:17 EST) Free T4 2.3(H) 0.8 - 1.8 ng/dL [facility] Blood specimen (specimen) 07/26/2013 12:17 EST 07/26/2013 15:09 EST Wilder Zaidi DO CHEMISTRY & BLOOD GAS ORDERABLES Final Result Performing Organization Address [facility] Co de Phone Number [facility] [address] [place] [address] * (ABNORMAL) ELECTROLYTES (07/26/2013 12:17 EST) Sodium 137 136 - 145 mEq/L [facility] Potassium 4.3 3.5 - 5.0 mEq/L [facility] Chloride 94(L) 96 - 110 mEq/L [facility] CO2 32 24 - 32 mEq/L [facility] Blood specimen (specimen) 07/26/2013 12:17 EST 07/26/2013 15:09 EST Wilder Zaidi DO CHEMISTRY & BLOOD GAS ORDERABLES Final Result [facility] [address] [place] [address] documented in this encounter Visit Diagnoses Diagnosis Gonadotropin deficiency (HCC-CMS) Other anterior pituitary disorders 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HCC-CMS) Pituitary dwarfism 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HCC-CMS) 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
--- OUTSIDE RECORDS SUMMARY | 2024-06-28 13:49 | XMS_ITS | Encounter Summary ---
Author Organization [facility] Address [address] [place] [address] Care Team Providers Care Director For Beauty School Name Role Phone Yossi Torres MD Primary Care Provider [phone]- [phone] Reason for Visit * Reason Onset Date Comments Results 12/30/2014 Encounter Details Date Type Department Care Team (Late st Contact Info) Description 12/30/2014 Telephone [facility] Endocrinology - [facility] [address] [place] [address] Wilder Zaidi DO 62 [facility] [address] [place] [address] Results Social History Tobacco Use [...] in one week * Telephone Encounter - [place] Chavez - 01/02/2015 1512 EDT Sodium 12/30/14 Sodium 145 136-145 * Telephone Encounter - [place] Chavez - 01/02/2015 1427 EDT Faxing sodium results. * Telephone Encounter - Gladys Willingham - 12/30/2014 1415 EDT Reason for Call: Results Summary/Symptoms Pt has sodium level testing todayt @ [facility] and caregiver is calling for results. Onset and Duration? na Urgent? Gladys Willingham 12/30/2014 14:15 documented in this encounter Plan of Treatment Upcoming Encounters Date Type Department Care Team (Late st Contact Info) Description 07/06/2024 13:40 EST Office Visit [facility] Endocrinology - [address] [phone] Wilder Zaidi, [address] [place] [address] [place] [phone] 09/09/2024 10:20 EST Office Visit [facility] Endocrinology - [address] [phone] Day Littlejohn MD PhD [address] [place] [address] [place] [phone] documented as of this encounter Visit Diagnoses Not on filedocumented in this encounter Care Teams Director For Beauty School Relationship Specialty Start Date End Date Yossi Torres MD [address] [place] [address] [phone] PCP - General 04/17/11 03/14/16 documented as of this encounter
--- OUTSIDE RECORDS SUMMARY | 2024-06-28 13:49 | XMS_ITS | Encounter Summary ---
Author Organization [facility] Address [address] [place] [address] Care Team Providers Care State Inspector Name Role Phone Yossi Torres MD Primary Care Provider [phone] Emilee Cody MD Primary Care Provider + Reason for Visit * Reason Onset Date Comments Results 01/19/2015 Medication Management 01/19/2015 Encounter Details Date Type Department Care Team (Late st Contact Info) Description 01/19/2015 Telephone [facility] Endocrinology - [facility] [address] [place] [address] Wilder Zaidi, 62 [facility] [address] [place] [address] Results; Medication Management Social History [...] Results and Medication Management Summary/Symptoms: Please call retirement and speak to Jonatan or Lali. They have questions about Fluid restriction for Miguel Angel. Requesting call back today when a moment. Alicia Chi 01/19/2015 11:52 * Telephone Encounter - Wilder Zaidi DO - 01/19/2015 1133 EDT Please contact patient via phone. [facility] . Advise patient's caretakers that his sodium wasnormal at 141. Please continue current dose of DDAVP and fluid restriction. Repeat sodium and 14 days documented in this encounter Plan of Treatment Upcoming Encounters Date Type Department Care Team (Late st Contact Info) Description 07/06/2024 13:40 EST Office Visit [facility] Endocrinology - [address] [phone] Wilder Zaidi DO [address] [place] [phone] 09/09/2024 10:20 EST Office Visit [facility] Endocrinology - [address] [address] Day Littlejohn MD PhD [address] [place] [address] [place] [phone] documented as of this encounter Visit Diagnoses Not on filedocumented in this encounter Care Teams State Inspector Relationship Specialty Start Date End Date Yossi Torres MD [address] [place] [address] DR BIUTRAGO [address] [place] [phone] PCP - General 04/17/11 03/14/16 Emilee Cody MD [address] [place] [address] PCP - General 03/15/16 09/29/18 documented as of this encounter
--- OUTSIDE RECORDS SUMMARY | 2024-06-28 13:49 | XMS_ITS | Encounter Summary ---
Author Organization [facility] Address [address] [place] [address] Care Team Providers Care Material Handler 1St Shift Name Role Phone Yossi Torres MD Primary Care Provider [phone]- [phone] Reason for Visit * Reason Onset Date Comments Medications Refill 08/29/2014 Encounter Details Date Type Department Care Team (Late st Contact Info) Description 08/29/2014 Refill [facility] Endocrinology - [facility] [address] [place] [address] Wilder Zaidi DO 62 [facility] [address] [place] [address] Medications Refill Social History Tobacco [...] mg/1.25 gram (1.62 %) transdermal gel pumpIndications:Jose nhypopituitarism ([facility]) Apply 1 pump actuation topically daily Daily Max: 20.25 mg 75 g 3 08/29/2014 5 documented in this encounter Miscellaneous Notes * Telephone Encounter - Chavez, [place] - 09/02/2014 0950 EST Androgel refill phoned in to [facility] in [place]. Androgel 1.62%, apply 1 pump daily #75gm with 3 refills. * Telephone Encounter - Shruti Michael, RN - 08/29/2014 1500 EST Refill request for androgel. Last visit 08/04/14, next visit 03/27/15. Last fill 02/03/14. Refill doneper protocol. documented in this encounter Plan of Treatment Upcoming Encounters Date Type Department Care Team (Late st Contact Info) Description 07/06/2024 13:40 EST Office Visit [facility] Endocrinology - [address] [phone] Wilder Zaidi, [address] [place] [phone] 09/09/2024 10:20 EST Office Visit [facility] Endocrinology [address] [phone] Day Littlejohn MD PhD [address] [place] [phone] documented as of this encounter Visit Diagnoses Diagnosis 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[facility] Primary Panhypopituitarism documented in this encounter Discontinued Medications Medication Sig Discontinue Reason Start Date End Da te testosterone (ANDROGEL) 20.25 mg/1.25 gram (1.62 %) transdermal gel pump Apply 1 pump actuation topically daily. Reorder 02/03/2014 08/29/2014 documented as of this encounter Care Teams Material Handler 1St Shift Relationship Specialty Start Date End Date Yossi Torres MD [address] [place] [address] [address] [place] [phone] PCP - General 04/17/11 03/14/16 documented as of this encounter
--- OUTSIDE RECORDS SUMMARY | 2024-06-28 13:49 | XMS_ITS | Encounter Summary ---
Author Organization [facility] Address [address] [place] [address] Care Team Providers Care Special Education Preschool Teacher Name Role Phone Yossi Torres MD Primary Care Provider [phone]- [phone] Reason for Visit * Reason Onset Date Comments Results 08/04/2014 Encounter Details Date Type Department Care Team (Late Contact Info) Description 08/04/[address] [facility] Endocrinology - [address] [address] Wilder Zaidi, 62 [facility] [address] [place] [address] Results Social History Tobacco Use [...] 13:[address] [facility] Endocrinology - [place] [address] [place] [address] Wilder Zaidi, 62 [facility] [address] [place] [address] 09/09/2024 10:[address] [facility] Endocrinology - [facility] [address] [place] [address] Day Littlejohn MD PhD 62 [facility] [address] [place] [address] documented as of this encounter Visit Diagnoses Not on filedocumented in this encounter Care Teams Special Education Preschool Teacher Relationship Specialty Start Date End Date Yossi Torres MD [address] [place] [phone] PCP - General 04/17/11 03/14/16 documented as of this encounter
--- OUTSIDE RECORDS SUMMARY | 2024-06-28 13:49 | XMS_ITS | Encounter Summary ---
Author Organization [facility] Address [address] [place] [address] Care Team Providers Care Two Needle Machine Operator Name Role Phone Yossi Torres MD Primary Care Provider [phone]- [phone] Reason for Visit * Reason Onset Date Comments Letter for School/Work 10/17/2014 Encounter Details Date Type Department Care Team (Late st Contact Info) Description 10/17/2014 Telephone [facility] Endocrinology - [facility] [address] [place] [address] [place] Chavez CDE 62 [facility] [address] [place] [address] Letter for School/Work Social History [...] - 10/19/2014 1122 EDT Faxed letter to [facility] [employer] services. * Telephone Encounter - Wilder Zaidi DO - 10/17/2014 9968 EDT Please type up letter for me [...] Info) Description 07/06/2024 13:40 EST Office Visit [facility] Endocrinology - [address] [phone] Wilder Zaidi DO [address] [phone] 09/09/2024 10:20 EST Office Visit [facility] Endocrinology - [address] [phone] Day Littlejohn MD PhD [address] [place] [phone] documented as of this encounter Visit Diagnoses Not on filedocumented in this encounter Care Teams Two Needle Machine Operator Relationship Specialty Start Date End Date Yossi Torres MD [address] [place] [address] [phone] PCP - General 04/17/11 03/14/16 documented as of this encounter
--- OUTSIDE RECORDS SUMMARY | 2024-06-28 13:49 | XMS_ITS | Encounter Summary ---
Author Organization [facility] Address [address] [place] [address] Care Team Providers Care Fruit Preserver Name Role Phone Yossi Torres MD Primary Care Provider [phone]- [phone] Encounter Details Date Type Department Care Team (Latest Contact Info) Description 07/29/2013 Orders Only [facility] Endocrinology - [address] [address] Tejal Carreno, RN CDE 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[facility]) (Primary Dx) Social History Tobacco Use Types [...] 07/06/2024 13:40 EST Office Visit [facility] Endocrinology [facility] [address] [place] [address] Wilder Zaidi DO 62 [facility] [address] [place] [address] 09/09/2024 10:20 EST Office Visit [address] [address] Day Littlejohn MD PhD 62 [facility] [address] [place] [address] documented as of this encounter Visit Diagnoses Diagnosis 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HCC-CMS)- Primary Panhypopituitarism documented in this encounter Care Teams Fruit Preserver Relationship Specialty Start Date End Date Yossi Torres MD [address] [place] [phone] PCP - General 04/17/11 03/14/16 documented as of this encounter
--- OUTSIDE RECORDS SUMMARY | 2024-06-28 13:49 | XMS_ITS | Encounter Summary ---
Author Organization [facility] Address [address] [place] [address] Care Team Providers Care Senior Quality Assurance Engineer Name Role Phone Yossi Torres MD Primary Care Provider [phone] Reason for Visit * Reason Comments Seizures * Referral (Routine) - Closed Specialty Diagnoses / Procedures Referred By Duyen bui Referred To Contact Neurology Diagnoses Seizure ([facility] Yossi Torres MD Phone: tel: fax: [facility] Neurology [facility] [address] [place] [address] Phone: tel: fax: Referral ID Status Reason Start Date Expiration Date Visits Re quested Visits Authorized [id number] Closed 1 1 Encounter Details Date Type Department Care Team (Late st Contact Info) Description 12/27/2014 10:30 EDT Office Visit [facility] Neurology [facility] [address] [place], [place] [phone] Dioni Jovel MD [address] [place] [phone] Seizure disorder ([facility]) (Primary Dx) Social History Tobacco Use Types [...] Refills Last Filled Start Date End Date zonisamide (ZONEGRAN) 100 mg capsule Take 1 Cap by mouth daily 90 Each 3 12/27/2014 documented in this encounter Progress Notes * Dioni Jovel MD - 12/27/2014 1101 EDT This office note has been dictated. documented in this encounter Consult Notes * Dioni Jovel MD - 12/27/2014 1207 EDT [facility] NEUROLOGY CONSULTATION - 12/27/2014 HISTORY: The patient is a 24-year-old right-handed gentleman seen at request of Dr Torres for evaluation of seizures. The patient was accompanied by his guardian and housefellow. I also reviewed records from [facility]. The patient's past medical history is significant [...] he was with home provider in the [facility] he had a spell where he was [...] general anesthesia. He is also followed with education and development manager for hypoglycemia and panhypopituitarism. He will follow with me in a few months or sooner if problems come. Dioni Jovel MD 11 13 AM - Dioni Jovel MD cn Dictation ID: [id number] documented in this encounter Plan of Treatment Upcoming Encounters Date Type Department Care Team (Late st Contact Info) Description 07/06/2024 13:40 EST Office Visit [facility] Endocrinology - [facility] [address] [place] [address] Wilder Zaidi, 62 [facility] [address] [place] [address] 09/09/2024 10:20 EST Office Visit [facility] Endocrinology - [facility] [address] [place] [address] Day Littlejohn MD PhD 62 [facility] [address] [place] [phone] documented as of this encounter Visit Diagnoses Diagnosis Seizure disorder ([facility])- Primary Unspecified epilepsy without mention of intractable epilepsy documented in this encounter Discontinued Medications Medication Sig Discontinue Reason Start Date End Da te ZONISAMIDE ORAL Take 75 mg by mouth at bedtime. 08/24/2010 12/27/2014 documented as of this encounter Care Teams Senior Quality Assurance Engineer Relationship Specialty Start Date End Date Yossi Torres MD [address] [place] [address] [address]O [address] [place] [phone] PCP - General 04/17/11 03/14/16 documented as of this encounter
--- OUTSIDE RECORDS SUMMARY | 2024-06-28 13:49 | XMS_ITS | Encounter Summary ---
Author Organization [facility] Address [address] [place] [address] Care Team Providers Care Bounty Trapper Name Role Phone Yossi Torres MD Primary Care Provider [phone] Reason for Visit * Reason Onset Date Comments Prior Auth, Medication 03/15/2015 Androgel Encounter Details Date Type Department Care Team (Late st Contact Info) Description 03/15/2015 Telephone [facility] Endocrinology - [facility] [address] [place] [address] Wilder Zaidi, 62 [facility] [address] [place] [address] Prior Auth, Medication (Androgel) Social [...] encounter Miscellaneous Notes * Telephone Encounter - Ramin Oteroin - 03/15/2015 1631 EDT Rec'd incoming fax with APPROVAL for: Androgel Gel 1.62%, 150/30 days Drug [facility]#: [id number] Tracking Number: [id number] Dates: 03/15/2015 to 03/15/2016 PA #: [id number] Called pharmacy & left message with patients sister that androgel has been approved. * Telephone Encounter - Lucía Bundy - 03/15/2015 1457 EDT Rcvd fax from pharmacy requesting PA for Androgel - completed [place] Medicaid PA Form using [employer] and e-filed to initiate process. documented in this encounter Plan of Treatment Upcoming Encounters Date Type Department Care Team (Late st Contact Info) Description 07/06/2024 13:40 EST Office Visit [facility] Endocrinology - [address] [phone] Wilder Zaidi, [address] [place] [phone] 09/09/2024 10:20 EST Office Visit [address] [address] Day Littlejohn MD PhD [address] [place] [phone] documented as of this encounter Visit Diagnoses Not on filedocumented in this encounter Care Teams Bounty Trapper Relationship Specialty Start Date End Date Yossi Torres MD [address] [place] [address] [address] [place] [phone] PCP - General 04/17/11 03/14/16 documented as of this encounter
--- OUTSIDE RECORDS SUMMARY | 2024-06-28 13:49 | XMS_ITS | Encounter Summary ---
Author Organization [facility] Address [address] [place] [address] Care Team Providers Care Drafter Civil Engineering Name Role Phone Yossi Torres MD Primary Care Provider [phone] Reason for Visit * Reason Onset Date Comments Discuss Test Results 02/03/2015 Sodium Leve ls Encounter Details Date Type Department Care Team (Late st Contact Info) Description 02/03/[address] [facility] Endocrinology - [facility] [address] [place] [address] Wilder Zaidi DO 62 [facility] [address] [place] [address] Discuss Test Results (Sodium Levels) [...] Belg[place] Chavez - 02/03/2015 0929 EDT Called [facility] drawn 01/31/15 Na level: 141 Unchanged from previous 2 wks ago. Continue current fluid restricton of 80 oz and retest again in 2 wks. * Telephone Encounter - Scar Sladehanie - 02/03/2015 0901 EDT Reason for Call: Discuss Test Results Summary/Symptoms: Jonatan at [facility] calling to receive [facility] Sodium levels he had done at [facility]. Please call back to discuss. Jonatan states as soon as possible because he will notbe available all day. Lauren Slade 02/03/2015 9:01 documented in this encounter Plan of Treatment Upcoming Encounters Date Type Department Care Team (Late st Contact Info) Description 07/06/2024 13:40 EST Office Visit [facility] Endocrinology - [address] [address] Wilder Zaidi, [address] [phone] 09/09/2024 10:20 EST Office Visit [facility] Endocrinology - [address] [address] Day Littlejohn MD PhD [address] [place] [phone] documented as of this encounter Visit Diagnoses Not on filedocumented in this encounter Care Teams Drafter Civil Engineering Relationship Specialty Start Date End Date oYssi Torres MD [address] [place] [address] [address] [place] [phone] PCP - General 04/17/11 03/14/16 documented as of this encounter
--- OUTSIDE RECORDS SUMMARY | 2024-06-28 13:49 | XMS_ITS | Encounter Summary ---
Author Organization [facility] Address [address] [place] [address] Care Team Providers Care Core Baker Name Role Phone Yossi Torres MD Primary Care Provider [phone] Reason for Visit * Reason Onset Date Comments Medications Refill 03/14/2015 Encounter Details Date Type Department Care Team (Late st Contact Info) Description 03/14/[address] [facility] Endocrinology - [facility] [address] [place] [address] Wilder Zaidi, 62 [facility] [address] [place] [address] Medications Refill Social History Tobacco [...] gram (1.62 %) transdermal gel pumpIndications:Jose nhypopituitarism ([facility]) Apply 3 pump actuations topically daily for 90 days Daily Max: 60.75 mg 337.5 g 0 03/15/2015 documented in this encounter Miscellaneous Notes * Telephone Encounter - Georgia Rice RN - 03/15/2015 1413 EDT Phone call to [facility] pharmacist I called in the Androg, but it needs a PA, they said they faxed it 2 days ago.? I had them refax,and will give to front staff. * Telephone Encounter - Addie Burgess - 03/14/2015 1313 EDT Medication(s) Requested: androg Pharmacy: [facility] Last Refill Date: 11/08/14 Last Visit Date: 08/04/14 Next Visit Date: 10/23/2015 Is patient out of medication? yes Addie Burgess 03/14/2015 13:13 documented in this encounter Plan of Treatment Upcoming Encounters Date Type Department Care Team (Late st Contact Info) Description 07/06/2024 13:40 EST Office [facility] Endocrinology - [address] [phone] Wilder Zaidi, [address] [place] [address] 09/09/2024 10:20 EST Office [facility] Endocrinology - [address] [address] Day Littlejohn MD PhD [address] [place] [address] documented as of this encounter Visit Diagnoses Diagnosis 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HCC-CMS)- Primary Panhypopituitarism documented in this encounter Discontinued Medications Medication Sig Discontinue Reason Start Date End Da te testosterone (ANDROGEL) 20.25 mg/1.25 gram (1.62 %) transdermal gel pumpIndications:Panhypo pituitarism (HCC-CMS) Apply 3 pump actuations topically daily for 90 days Daily Max: 60.75 mg Reorder 11/08/2014 03/14/2015 documented as of this encounter Care Teams Core Baker Relationship Specialty Start Date End Date Yossi Torres MD [address] [place] [address] DR BUITR[address]O [address] [place] [phone] PCP - General 04/17/11 03/14/16 documented as of this encounter
--- OUTSIDE RECORDS SUMMARY | 2024-06-28 13:49 | XMS_ITS | Encounter Summary ---
Author Organization [facility] Address [address] [place] [address] Care Team Providers Care Fuel Dock Attendant Name Role Phone Yossi Torres MD Primary Care Provider Emilee Cody MD Primary Care Provider + Ren Vaz MD Primary Care Provider [phone] Reason for Visit * Reason Comments Other Encounter Details Date Type Department Care Team (Late st Contact Info) Description 07/27/2013 Refill [facility] Endocrinology - [facility] [address] [place] [address] Wilder Zaidi, 62 [facility] [address] [place] [address] Other Social History Tobacco Use [...] End Date desmopressin (DDAVP) 0.1 mg tablet Take 0.5 Tabs by mouth 3 times daily. Take 1/2 tab three times daily 45 Tab 3 07/29/2013 documented in this encounter Plan of Treatment Upcoming Encounters Date Type Department Care Team (Late st Contact Info) Description 07/06/2024 13:40 EST Office Visit [facility] Endocrinology - [facility] [address] [place] [address] Wilder Zaidi, 62 [facility] [address] [place] [phone] 09/09/2024 10:20 EST Office Visit [facility] Endocrinology - [facility] [address] [place], [place] [phone] Day Littlejohn MD PhD [address] [address] documented as of this encounter Visit Diagnoses Not on filedocumented in this encounter Discontinued Medications Medication Sig Discontinue Reason Start Date End Da te desmopressin (DDAVP) 0.1 mg tablet TAKE ONE TABLET BY MOUTH EVERY DAY AND TAKE 1/2 TABLET EVERY EVENING Dose adjustment 04/19/2013 07/29/2013 documented as of this encounter Care Teams Fuel Dock Attendant Relationship Specialty Start Date End Date Yossi Torres MD [address] [place] [address] [phone] PCP - General 04/17/11 03/14/16 Emilee Cody MD [address] [place] [phone] PCP - General 03/15/16 09/29/18 Ren Vaz MD [address] [place] [address] [place] [address] PCP - General 09/30/18 documented as of this encounter
--- OUTSIDE RECORDS SUMMARY | 2024-06-28 13:49 | XMS_ITS | Encounter Summary ---
Author Organization [facility] Address [address] [place] [address] Care Team Providers Care Patient Financial Coordinator Name Role Phone Yossi Torres MD Primary Care Provider [phone] Emilee Cody MD Primary Care Provider + Reason for Visit * Reason Onset Date Comments Discuss Test Results 02/20/2015 Sodium Chec k last week Encounter Details Date Type Department Care Team (Late st Contact Info) Description 02/20/2015 Telephone [facility] Endocrinology - [facility] [address] [place] [address] Wilder Zaidi DO 62 [facility] [address] [place] [address] Discuss Test Results (Sodium Check [...] Encounter - Georgia Rice RN - 02/21/2015 5232 EDT Phone call to [facility] Informed her of Dr. Zaidi's review, and instructions below. Verbalizes understanding with no barriers. * Telephone Encounter - Wilder Zaidi DO - 02/21/2015 1131 EDT Sodium normal. Continue current dose of DDAVP and fluid restriction. Repeat labs in 6 weeks or if there is a change in symptoms. * Telephone Encounter - Georgia Rice RN - 02/21/2015 1117 EDT Phone call to [facility] Resulted on 02/15/15 Sodium-141 * Telephone Encounter - Addie Burgess - 02/20/2015 1512 EDT Reason for Call: Discuss Test Results Summary/Symptoms: Please call [facility]'s mobile with Sodium check results. Addie Burgess 02/20/2015 15:12 * Telephone Encounter - Belgica Camara V. - 02/20/2015 1248 EDT Please call Jonatan or [facility] with Sodium Check results done at [facility] last week. documented in this encounter Plan of Treatment Upcoming Encounters Date Type Department Care Team (Late st Contact Info) Description 07/06/2024 13:40 EST Office Visit [facility] Endocrinology - [address] [phone] Wilder Zaidi DO [address] [place] [phone] 09/09/2024 10:20 EST Office Visit [facility] Endocrinology [address] [address] Day Littlejohn MD PhD [address] [place] [phone] documented as of this encounter Visit Diagnoses Not on filedocumented in this encounter Care Teams Patient Financial Coordinator Relationship Specialty Start Date End Date Yossi Torres MD [address] [place] [phone] PCP - General 04/17/11 03/14/16 Emilee Cody MD [address] [place] [phone] PCP - General 03/15/16 09/29/18 documented as of this encounter
--- OUTSIDE RECORDS SUMMARY | 2024-06-28 13:49 | XMS_ITS | Encounter Summary ---
Author Organization [facility] Address [address] [place] [address] Care Team Providers Care Conservation Engineer Name Role Phone Yossi Torres MD Primary Care Provider [phone] Encounter Details Date Type Department Care Team (Late st Contact Info) Description 02/01/2013 Orders Only [facility] Endocrinology - [address] [address] Karen Tellez RN Social History Tobacco Use [...] Filled Start Date End Date testosterone (ANDROGEL) 1 %(50 mg/5 gram) gel Place 5 g onto the skin daily. Pt needs appt for further refills. 30 Packet 0 02/01/2013 4 documented in this encounter Progress Notes * Georgia Rice RN - 02/04/2013 1120 EDT Called Androgel into his pharmacy. He needs an appointment before further refills per Dr. Zaidi. documented in this encounter Plan of Treatment Upcoming Encounters Date Type Department Care Team (Late st Contact Info) Description 07/06/2024 13:40 EST Office Visit [facility] Endocrinology - [facility] [address] [place] [address] Wilder Zaidi, 62 [facility] [address] [place] [address] 09/09/2024 10:20 EST Office Visit [facility] Endocrinology - [facility] [address] [place] [address] Day Littlejohn MD PhD 62 [facility] [address] [place] [phone] documented as of this encounter Visit Diagnoses Not on filedocumented in this encounter Discontinued Medications Medication Sig Discontinue Reason Start Date End Da te ANDROGEL 1 %(50 mg/5 gram) gel ONE PACKET ONCE DAILY TOPICALLY Reorder 06/28/2012 02/01/2013 documented as of this encounter Care Teams Conservation Engineer Relationship Specialty Start Date End Date Yossi Torres MD [address] [place] [address] [address] [place] [phone] PCP - General 04/17/11 03/14/16 documented as of this encounter
--- OUTSIDE RECORDS SUMMARY | 2024-06-28 13:49 | XMS_ITS | Encounter Summary ---
Author Organization [facility] Address [address] [place] [address] Care Team Providers Care Business Lawyer Name Role Phone Yossi Torres MD Primary Care Provider [phone] Reason for Visit * Reason Onset Date Comments Results 05/02/2015 Encounter Details Date Type Department Care Team (Late st Contact Info) Description 05/02/2015 Telephone [facility] Endocrinology - [address] [address] Gladys Huang RN Results Social [...] Info) Description 07/06/2024 13:40 EST Office Visit [facility] Endocrinology [facility] [address] [place] [address] Wilder Zaidi, 62 [facility] [address] [place] [address] 09/09/2024 10:20 EST Office Visit [facility] Endocrinology - [facility] [address] [place] [address] Day Littlejohn MD PhD 62 [facility] [address] [place] [address] documented as of this encounter Visit Diagnoses Not on filedocumented in this encounter Care Teams Business Lawyer Relationship Specialty Start Date End Date Yossi Torres MD [address] [place] [address] [address] [place] [phone] PCP - General 04/17/11 03/14/16 documented as of this encounter
--- OUTSIDE RECORDS SUMMARY | 2024-06-28 13:49 | XMS_ITS | Encounter Summary ---
Author Organization [facility] Address [address] [place] [address] Care Team Providers Care Dining Room Host/Hostess Name Role Phone Yossi Torres MD Primary Care Provider [phone] Reason for Visit * Reason Comments Pituitary Abnormality Encounter Details Date Type Department Care Team (Latest Contact Info) Description 07/26/2013 11:00 EST Office Visit [facility] Endocrinology - [facility] [address] [place], [place] [phone] Wilder Zaidi, 62 [facility] [address] [place] [address] Gonadotropin deficiency (CMS-HCC) (HCC-CMS) (Primary [...] Filled Start Date End Date levothyroxine (SYNTHROID) 200 mcg tabletIndications:Go nadotropin deficiency (HCC-CMS),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HCC-CMS),Panhypopit uitarism (HCC-CMS),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HCC-CMS),Secondary hypothyroidism Take 1 Tab by mouth daily. 90 Tab 3 07/26/2013 4 documented in this encounter Progress Notes [...] he said he was sad by his employment counselor today. Mood has been stable according to his employment counselor and sister. 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 Currently lives with his caretakers accompanied today by his employment counselor and his sister, Bettina. Central diabetes insipidus [...] Info) Description 07/06/2024 13:40 EST Office Visit [facility] Endocrinology - [address] [address] Wilder Zaidi DO [address] [place] [address] [address] [place] [address] 09/09/2024 10:20 EST Office Visit [facility] Endocrinology - [facility] [address] [place] [address] Day Littlejohn MD PhD 62 [facility] [address] [place] [address] documented as of this [...] (specimen) 07/26/2013 12:17 EST 07/26/2013 15:09 EST us Wilder Zaidi DO HEMATOLOGY & PF4 ORDER LYNDSEY Final Result [facility] [address] [place] [address] * (ABNORMAL) T4 FREE (07/26/2013 12:17 EST) Free T4 2.3(H) 0.8 - 1.8 ng/dL [facility] Blood specimen (specimen) 07/26/2013 12:17 EST 07/26/2013 15:09 EST Wilder Erik Dejuan DO CHEMISTRY & BLOOD GAS ORDERABLES Final Result Performing Organization Address [facility] Co de Phone Number [facility] [address] [place] [address] * (ABNORMAL) ELECTROLYTES (07/26/2013 12:17 EST) Sodium [...] GAS ORDERABLES Final Result Performing Organization Address [facility] de Phone Number [facility] [address] [place] [address] documented in this encounter Visit Diagnoses Diagnosis [...] may reflect changes made after this encounter. traZODone (DESYREL) 50 mg tabletIndications:Go nadotropin deficiency (HCC-CMS),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HCC-CMS),Panhypopit uitarism (HCC-CMS),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HCC-CMS),Secondary hypothyroidism Take 100 mg by mouth daily. QUEtiapine (SEROQUEL) 50 mg tabletIndications:Go nadotropin deficiency (HCC-CMS),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HCC-CMS),Panhypopit uitarism (HCC-CMS),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[facility]),Secondary hypothyroidism Take 25 mg by mouth daily. Takes at 25 mg at noon added in this encounter Care Teams Dining Room Host/Hostess Relationship Specialty Start Date End Date Yossi Torres MD [address] [place] [address] [address] [place] [phone] PCP - General 04/17/11 03/14/16 documented as of this encounter
--- OUTSIDE RECORDS SUMMARY | 2024-06-28 13:49 | XMS_ITS | Encounter Summary ---
Author Organization [facility] Address [address] [place] [address] Care Team Providers Care Data Center Engineer Name Role Phone Yossi Torres MD Primary Care Provider [phone] Reason for Visit * Reason Onset Date Comments Update 04/17/2015 Encounter Details Date Type Department Care Team (Late st Contact Info) Description 04/17/2015 Telephone [facility] Endocrinology - [facility] [address] [place] [address] Wilder Zaidi, 62 [facility] [address] [place] [address] Update Social History Tobacco Use [...] Miscellaneous Notes * Telephone Encounter - Belgica Chavze - 04/21/2015 1427 EDT Return call from [...] Reason for Call: Update Summary/Symptoms: Lali from senior living looking for pt's sodium levels. Addie Burgess 04/17/2015 11:20 documented in this encounter Plan of Treatment Upcoming Encounters Date Type Department Care Team (Late st Contact Info) Description 07/06/2024 13:40 EST Office Visit [facility] Endocrinology - [address] [address] Wilder Zaidi, 62 [facility] [address] [place] [phone] 09/09/2024 10:20 EST Office Visit [facility] Endocrinology - [address] [address] Day Littlejohn MD PhD [address] [place] [address] [place] [phone] documented as of this encounter Visit Diagnoses Not on filedocumented in this encounter Care Teams Data Center Engineer Relationship Specialty Start Date End Date Yossi Torres MD [address] [place] [address] DR BU[address]O [address] [place] [phone] PCP - General 04/17/11 03/14/16 documented as of this encounter
--- OUTSIDE RECORDS SUMMARY | 2024-06-28 13:49 | XMS_ITS | Encounter Summary ---
Author Organization [facility] Address [address] [place] [address] Care Team Providers Care Tire Retreader Name Role Phone Yossi Torres MD Primary Care Provider [phone] Reason for Visit * Reason Onset Date Comments Orders (Non Pre-visit) 11/08/2014 MEDICATIO NS Encounter Details Date Type Department Care Team (Late st Contact Info) Description 11/08/2014 Telephone [facility] Endocrinology - [facility] [address] [place] [address] Wilder Zaidi, 62 [facility] [address] [place] [address] Orders (Non Pre-visit) (MEDICATIONS) Social [...] Refills Last Filled Start Date End Date hydrocortisone (CORTEF) 10 mg tablet Take 1 Tab by mouth 2 times daily Takes @@ 1200 & 1700 180 Tab 3 11/08/2014 testosterone (ANDROGEL) 20.25 mg/1.25 gram (1.62 %) transdermal gel pumpIndications:Jose nhypopituitarism ([facility]) Apply 3 pump actuations topically daily for 90 days Daily Max: 60.75 mg 75 g 1 11/08/2014 5 documented in this encounter Miscellaneous Notes * Telephone Encounter - Belgica Chavez - 11/08/2014 1556 EDT Phoned in androgel to [facility] in [facility]. Spoke to pharmacist. * Telephone Encounter - Tracy Nunez - 11/08/2014 1037 EDT Reason for Call: Orders (Non Pre-visit) Summary/Symptoms - Pt is [facility] to his [facility], needing new orders of hydrocortisone and androgel sent [facility]. Also the androgel is currently 3 pumps 1x daily @ 1% per Lali (differs from script). Pt has 5 days left of both meds Tracy Nunez 11/08/2014 10:37 documented in this encounter Plan of Treatment Upcoming Encounters Date Type Department Care Team (Late st Contact Info) Description 07/06/2024 13:40 EST Office Visit [facility] Endocrinology - [address] [address] Wilder Zaidi, [address] [place] [phone] 09/09/2024 10:20 EST Office Visit [facility] Endocrinology - [address] [address] Day Littlejohn MD PhD [address] [place] [address] [place] [phone] documented as of this encounter Visit [...] documented as of this encounter Care Teams Tire Retreader Relationship Specialty Start Date End Date Yossi Torres MD [address] [place] [address] [address] [place] [phone] PCP - General 04/17/11 03/14/16 documented as of this encounter
--- OUTSIDE RECORDS SUMMARY | 2024-06-28 13:49 | XMS_ITS | Encounter Summary ---
Author Organization [facility] Address [address] [place] [address] Care Team Providers Care Medical Facilities Section Director Name Role Phone Yossi Torres MD Primary Care Provider [phone] Reason for Visit * Reason Onset Date Comments Results 04/04/2015 Encounter Details Date Type Department Care Team (Late st Contact Info) Description 04/04/2015 Telephone [facility] Endocrinology - [facility] [address] [place] [address] Belgica Chavez CDE 62 [facility] [address] [place] [address] Results Social History Tobacco Use [...] 1710 EDT Discussed with Lali nurse at [facility]. Advised of plan. She verbalized understanding. * [...] 07/06/2024 13:40 EST Office Visit [facility] Endocrinology - [address] [phone] Wilder Zaidi DO [address] [place] [phone] 09/09/2024 10:20 EST Office Visit [facility] Endocrinology - [address] [address] Day Littlejohn MD PhD [address] [place] [phone] documented as of this encounter Visit Diagnoses Not on filedocumented in this encounter Care Teams Medical Facilities Section Director Relationship Specialty Start Date End Date Yossi Torres MD [address] [place] [address] [address] [place] [phone] PCP - General 04/17/11 03/14/16 documented as of this encounter
--- OUTSIDE RECORDS SUMMARY | 2024-06-28 13:49 | XMS_ITS | Encounter Summary ---
Author Organization [facility] Address [address] [place] [address] Care Team Providers Care Program Officer Name Role Phone Yossi Torres MD Primary Care Provider [phone] Reason for Visit * Reason Onset Date Comments Follow-up 09/01/2013 Encounter Details Date Type Department Care Team (Late st Contact Info) Description 09/01/2013 Telephone [facility] Endocrinology - [facility] [address] [place] [address] Wilder Zaidi, 62 [facility] [address] [place] [address] Follow-up Social History Tobacco Use [...] End Date levothyroxine (SYNTHROID) 150 mcg tablet Take 1 [...] and discussed with Dr. Paul and Dr. Littlejohn TSH is not accurate and is not [...] out of range as well. I called [facility] to have the results faxed to [...] since he is onvacation asking for the fiction writer provider, I relayed to Bettina that the nurse will give this messageto the covering MDBettina states concerns are w/ his high sodium of 150 and sees yuly for Primary central diabetes insipidus, Bettina disconnected call abruptly documented in this encounter Plan of Treatment Upcoming Encounters Date Type Department Care Team (Late st Contact Info) Description 07/06/2024 13:40 EST Office Visit [facility] Endocrinology - [facility] [address] [place] [address] Wilder Zaidi, DO 62 [facility] [address] [place] [address] 09/09/2024 10:20 EST Office Visit [facility] Endocrinology - [facility] [address] [place] [address] Day Littlejohn MD PhD 62 [facility] [address] [place] [address] documented as of this encounter Visit Diagnoses Not on filedocumented in this encounter Discontinued Medications Medication Sig Discontinue Reason Start Date End Da te levothyroxine (SYNTHROID) 175 mcg tablet Take 1 Tab by mouth daily. Reorder 07/29/2013 09/01/2013 documented as of this encounter Care Teams Program Officer Relationship Specialty Start Date End Date Yossi Torres MD [address] [place] [address] [phone] PCP - General 04/17/11 03/14/16 documented as of this encounter
--- OUTSIDE RECORDS SUMMARY | 2024-06-28 13:49 | XMS_ITS | Encounter Summary ---
Author Organization [facility] Address [address] [place] [address] Care Team Providers Care Draw Off Worker Name Role Phone Yossi Torres MD Primary Care Provider +1 [phone] Reason for Visit * Reason Onset Date Comments Medications Refill 02/08/2013 Encounter Details Date Type Department Care Team (Late st Contact Info) Description 02/08/2013 Refill [facility] Endocrinology - [facility] [address] [place] [address] Wilder Zaidi, 62 [facility] [address] [place] [address] Medications Refill Social History Tobacco [...] in last week. * Telephone Encounter - Bettina Fischer - 02/08/2013 1606 EDT Medication(s) Requested: androgel Pharmacy: [facility] Last Refill Date: 02/03/13 Last Visit Date: 11/04/11 Next Visit Date: Visit date not found Is patient out of medication? bobby Fischer 02/08/2013 16:06 documented in this encounter Plan of Treatment Upcoming Encounters Date Type Department Care Team (Late st Contact Info) Description 07/06/2024 13:40 EST Office Visit [facility] Endocrinology - [address] [address] Wilder Zaidi, [address] [place] [phone] 09/09/2024 10:20 EST Office Visit [address] [address] Day Littlejohn MD PhD [address] [place] [phone] documented as of this encounter Visit Diagnoses Not on filedocumented in this encounter Care Teams Draw Off Worker Relationship Specialty Start Date End Date Yossi Torres MD [address] [place] [address] [address] BU[address]O [address] [place] [phone] PCP - General 04/17/11 03/14/16 documented as of this encounter
--- OUTSIDE RECORDS SUMMARY | 2024-06-28 13:49 | XMS_ITS | Encounter Summary ---
Author Organization [facility] Address [address] [place] [address] Care Team Providers Care Table Cut Off Saw Operator Name Role Phone Yossi Torres MD Primary Care Provider +1 [phone] Reason for Visit * Reason Onset Date Comments Abnormal Lab 09/12/2013 Encounter Details Date Type Department Care Team (Late st Contact Info) Description 09/12/2013 Telephone [facility] Endocrinology - [facility] [address] [place] [address] Day Littlejohn MD PhD [address] [facility] [address] [place] [address] Abnormal Lab Social History Tobacco [...] Encounter - Day Littlejohn MD - 09/12/2013 4505 EDT Called from [facility] that [...] [facility] Endocrinology - [address] [address] Wilder Zaidi, [address] [place] [phone] 09/09/2024 10:20 EST Office Visit [facility] Endocrinology - [address] [address] Day Littlejohn MD PhD [address] [place] [address] documented as of this encounter Visit Diagnoses Not on filedocumented in this encounter Care Teams Table Cut Off Saw Operator Relationship Specialty Start Date End Date Yossi Torres MD [address] [place] [phone] PCP - General 04/17/11 03/14/16 documented as of this encounter
--- OUTSIDE RECORDS SUMMARY | 2024-06-28 13:49 | XMS_ITS | Encounter Summary ---
Author Organization [facility] Address [address] [place] [address] Care Team Providers Care Marine Habitat Resource Specialist Name Role Phone Yossi Torres MD Primary Care Provider +1- [phone] Reason for Visit * Reason Onset Date Comments Labs Only 01/18/2015 Sodium results Encounter Details Date Type Department Care Team (Late st Contact Info) Description 01/18/2015 Telephone [facility] Endocrinology - [facility] [address] [place] [address] Wilder Zaidi DO 62 [facility] [address] [place] [address] Labs Only (Sodium results ) [...] Results and plan reviewed with staff at [facility]. * Telephone Encounter - Hayley Odonnell - 01/18/2015 1210 EDT Reason for Call: Labs Only Summary/Symptoms: [facility] called to verify sodium labs had been received. Requested call back. Hayley Odonnell 01/18/2015 12:10 documented in this encounter Plan of Treatment Upcoming Encounters Date Type Department Care Team (Late st Contact Info) Description 07/06/2024 13:40 EST Office Visit [facility] Endocrinology - [address] [address] Wilder Zaidi, [address] [place] [phone] 09/09/2024 10:20 EST Office Visit [facility] - [address] [address] Day Littlejohn MD PhD [address] [place] [phone] documented as of this encounter Visit Diagnoses Not on filedocumented in this encounter Care Teams Marine Habitat Resource Specialist Relationship Specialty Start Date End Date Yossi Torres MD [address] [place] [phone] PCP - General 04/17/11 03/14/16 documented as of this encounter
--- OUTSIDE RECORDS SUMMARY | 2024-06-28 13:49 | XMS_ITS | Encounter Summary ---
Author Organization [facility] Address [address] [place] [address] Care Team Providers Care Retail Banking Manager Name Role Phone Yossi Torres MD Primary Care Provider +1 [phone] Reason for Visit * Reason Comments Other Encounter Details Date Type Department Care Team (Late st Contact Info) Description 02/02/2013 Refill [facility] Endocrinology - [facility] [address] [place], [place] [phone] Wilder Zaidi, 62 [facility] [address] [place] [address] Other Social History Tobacco Use [...] Date desmopressin (DDAVP) 0.1 mg tablet Take 1 tab PO q AM, 1/2 tab q PM - pt needs appt for further refills. 45 Tab 0 02/03/2013 3 documented in this encounter Plan of Treatment Upcoming Encounters Date Type Department Care Team (Late st Contact Info) Description 07/06/2024 13:40 EST Office Visit [facility] Endocrinology - [facility] [address] [place] [address] Wilder Zaidi, DO 62 [facility] [address] [place] [address] 09/09/2024 10:20 EST Office Visit [facility] Endocrinology - [facility] [address] [place] [address] Day Littlejohn MD PhD 62 [facility] [address] [place] [address] documented as of this encounter Visit Diagnoses Not on filedocumented in this encounter Discontinued Medications Medication Sig Discontinue Reason Start Date End Da te desmopressin (DDAVP) 0.1 mg tablet TAKE ONE TABLET BY MOUTH EVERY MORNING AND ONE HALF TABLET AT BEDTIME Reorder 01/12/2013 02/02/2013 documented as of this encounter Care Teams Retail Banking Manager Relationship Specialty Start Date End Date Yossi Torres MD [address] [place] [address] [address] [place] [phone] PCP - General 04/17/11 03/14/16 documented as of this encounter
--- OUTSIDE RECORDS SUMMARY | 2024-06-28 13:49 | XMS_ITS | Encounter Summary ---
Author Organization [facility] Address [address] [place] [address] Care Team Providers Care Yeast Fermentation Attendant Name Role Phone Yossi Torres MD Primary Care Provider +1 [phone] Reason for Visit * Reason Comments Other Encounter Details Date Type Department Care Team (Late st Contact Info) Description 04/19/2013 Refill [facility] Endocrinology - [facility] [address] [place] [address] Wilder Zaidi, 62 [facility] [address] [place] [address] Other Social History Tobacco Use [...] TABLET EVERY EVENING 150 Tab 0 04/19/2013 4 documented in this encounter Miscellaneous Notes * Telephone Encounter - Karen Tellez L - 04/19/2013 0577 EDT Miguel Angel has not been seen in over 1 year (4.2012). I called and spoke with his caregiver Bettina and she made him a follow up visit for July. I reminded her we will refill meds until that visit and he needs to be seen at least yearly. documented in this encounter Plan of Treatment Upcoming Encounters Date Type Department Care Team (Late st Contact Info) Description 07/06/2024 13:40 EST Office Visit [facility] Endocrinology - [address] [address] Wilder Zaidi, [address] [place] [address] 09/09/2024 10:20 EST Office Visit [facility] Endocrinology [address] [address] Day Littlejohn MD PhD [address] [place] [phone] documented as of this encounter Visit Diagnoses Not on filedocumented in this encounter Discontinued Medications Medication Sig Discontinue Reason Start Date End Da te desmopressin (DDAVP) 0.1 mg tablet TAKE ONE TABLET BY MOUTH EVERY MORNING AND 1/2 TABLET EVERY EVENING Reorder 03/03/2013 04/19/2013 documented as of this encounter Care Teams Yeast Fermentation Attendant Relationship Specialty Start Date End Date Yossi Torres MD [address] [place] [address] DR BUITRAGO [address] [place] [phone] PCP - General 04/17/11 03/14/16 documented as of this encounter
--- OUTSIDE RECORDS SUMMARY | 2024-06-28 13:49 | XMS_ITS | Encounter Summary ---
Author Organization [facility] Address [address] [place] [address] Care Team Providers Care Cash Application Representative Name Role Phone Yossi Torres MD Primary Care Provider [phone] Emilee oCdy MD Primary Care Provider + Reason for Visit * Reason Onset Date Comments Results 08/05/2014 Encounter Details Date Type Department Care Team (Late st Contact Info) Description 08/05/2014 Telephone [facility] Endocrinology - [facility] [address] [place] [address] Wilder Zaidi DO 62 [facility] [address] [place] [address] Results Social History Tobacco Use [...] 1317 EST Received faxed lab results from [facility] Sodium--145 Range (137-145) * Telephone Encounter - [...] 07/06/2024 13:40 EST Office Visit [facility] Endocrinology - [address] [address] Wilder Zaidi DO [address] [address] 09/09/2024 10:20 EST Office Visit [facility] Endocrinology - [address] [phone] Day Littlejohn MD PhD [address] [address] documented as of this encounter Visit Diagnoses Not on filedocumented in this encounter Care Teams Cash Application Representative Relationship Specialty Start Date End Date Yossi Torres MD [address] [place] [phone] PCP - General 04/17/11 03/14/16 Emilee Cody MD [address] [place] [address] PCP - General 03/15/16 09/29/18 documented as of this encounter
--- OUTSIDE RECORDS SUMMARY | 2024-06-28 13:49 | XMS_ITS | Encounter Summary ---
Author Organization [facility] Address [address] [place] [address] Care Team Providers Care Special Investigation Unit Investigator Name Role Phone Yossi Torres MD Primary Care Provider [phone] Emilee Cody MD Primary Care Provider + Reason for Visit * Reason Onset Date Comments Results 10/08/2012 Encounter Details Date Type Department Care Team (Late st Contact Info) Description 10/08/2012 Telephone [facility] Endocrinology - [facility] [address] [place] [address] Wilder Zaidi DO 62 [facility] [address] [place] [address] Results Social History Tobacco Use [...] Encounter - Georgia Rice RN - 10/08/2012 9783 EDT Phone call to Bettina (pt's sister) [...] Office Visit [facility] Endocrinology - [address] [address] Wilder Zaidi DO [address] [place] [address] 09/09/2024 10:20 EST Office Visit [facility] Endocrinology - [address] [phone] Day Littlejohn MD PhD [address] [address] documented as of this encounter Visit Diagnoses Not on filedocumented in this encounter Care Teams Special Investigation Unit Investigator Relationship Specialty Start Date End Date Yossi Torres MD [address] [place] [phone] PCP - General 04/17/11 03/14/16 Emilee Cody MD [address] [place] [phone] PCP - General 03/15/16 09/29/18 documented as of this encounter
--- OUTSIDE RECORDS SUMMARY | 2024-06-28 13:49 | XMS_ITS | Encounter Summary ---
Author Organization [facility] Address [address] [place] [address] Care Team Providers Care Occ Med Physician Name Role Phone Yossi Torres MD Primary Care Provider +[phone] Emilee Cody MD Primary Care Provider + Reason for Visit * Reason Onset Date Comments Returning Call 02/02/2014 to [place] Returning Call 02/02/2014 Encounter Details Date Type Department Care Team (Late st Contact Info) Description 02/01/2014 Telephone [facility] Endocrinology - [facility] [address] [place] [address] Wilder Zaidi, 62 [facility] [address] [place] [address] Returning Call (to Georgia); Returning [...] Telephone Encounter - Ludmila Harris - 02/02/2014 9470 EDT Bettina is returning Georgia's call. * Telephone Encounter - Mady Cardenas - 02/02/2014 1302 EDT Bettina Ho's call. Please call back. OK to leave results on VM if not reachable. * Telephone Encounter - Georgia Rice, HEATHER - 02/02/2014 1254 EDT Phone call to [...] Office Visit [facility] Endocrinology - [address] [address] Wilder Zaidi DO [address] [place] [phone] 09/09/2024 10:20 EST Office Visit [facility] Endocrinology - [address] [address] Day Littlejohn MD PhD [address] [place] [phone] documented as of this encounter Visit Diagnoses Not on filedocumented in this encounter Care Teams Occ Med Physician Relationship Specialty Start Date End Date Yossi Torres MD [address] [place] [address] [address] [place] [phone] PCP - General 04/17/11 03/14/16 Emilee Cody MD [address] [place] [phone] PCP - General 03/15/16 09/29/18 documented as of this encounter
--- OUTSIDE RECORDS SUMMARY | 2024-06-28 13:49 | XMS_ITS | Encounter Summary ---
Author Organization [facility] Address [address] [place] [address] Care Team Providers Care Senior Trainer Name Role Phone Yossi Torres MD Primary Care Provider [phone] Emilee Cody MD Primary Care Provider + Ren Vaz MD Primary Care Provider [phone] Reason for Visit * Reason Onset Date Comments Follow-up 09/07/2013 Update 09/07/2013 Encounter Details Date Type Department Care Team (Late st Contact Info) Description 09/07/2013 Telephone [facility] Endocrinology - [facility] [address] [place] [address] Wilder Zaidi, 62 [facility] [address] [place] [address] Follow-up; Update Social History Tobacco [...] got a verbal result from lab at [facility] of 152. She is wondering if pt [...] Office Visit [facility] Endocrinology - [facility] [address] [place] [address] Wilder Zaidi, 62 [facility] [address] [place] [phone] 09/09/2024 10:20 EST Office Visit [facility] Endocrinology - [facility] [address] [place] [address] Day Littlejohn MD PhD [address] [address] documented as of this encounter Visit Diagnoses Not on filedocumented in this encounter Care Teams Senior Trainer Relationship Specialty Start Date End Date Yossi Torres MD [address] [place] [address] [phone] PCP - General 04/17/11 03/14/16 Emilee Cody MD [address] [place] [phone] PCP - General 03/15/16 09/29/18 Ren Vaz MD [facility] [place] [address] PCP - General 09/30/18 documented as of this encounter
--- OUTSIDE RECORDS SUMMARY | 2024-06-28 13:49 | XMS_ITS | Encounter Summary ---
Author Organization [facility] Address [address] [place] [address] Care Team Providers Care Cured Meats Supervisor Name Role Phone Yossi Torres MD Primary Care Provider [phone] Reason for Visit * Reason Onset Date Comments Prior Auth, Medication 01/17/2015 Encounter Details Date Type Department Care Team (Late st Contact Info) Description 01/17/2015 Telephone [facility]ology - [facility] [address] [place] [address] Wilder Zaidi, 62 [facility] [address] [place] [address] Prior Auth, Medication Social History [...] - Lucía Bundy - 01/19/2015 1650 EDT Lisseth fax from [place] Medicaid with APPROVAL for: Drug NDC # and Name: [id number] - Levothyroxin Tab 150 mcg Tracking #: [id number] PA #: [id number] Dates: 01/19/2015- 01/20/2016 Qty / Days Supply Restrictions: [place] Medicaid ID#: [id number] Called Pharmacy and they had all ready blister packed and ready to go as soon as we provided approval. * Telephone Encounter - Lucía Bundy - 01/18/2015 1104 EDT [facility] signed form back from Dr. Zaidi and faxed to [place] Medicaid at [phone] to initiate PA process. * Telephone Encounter - Dina Otero - 01/17/2015 1712 EDT Received fax for Levothyroxine override to blister pack - the pharmacy indicates the patient lives in a long term and they can only fill 30 day supply at a time. Completed [place] Exception to required 90 day maintenance medication fill form & provided to Dr. Zaidi for signature. * Telephone Encounter - Gladys Willingham - 01/17/2015 0908 EDT Reason for Call: Prior Auth, Medication Summary/SymptomsPt said that [facility] needs PA for levothyroxine 30 day supply not 90 day supply for bubble wrap. Please call if you have questions. Onset and Duration? na Urgent? Gladys Willingham 01/17/2015 9:08 documented in this encounter Plan of Treatment Upcoming Encounters Date Type Department Care Team (Late st Contact Info) Description 07/06/2024 13:40 EST Office Visit [facility]ology - [facility] [address] [place], [place] [address] Wilder Zaidi, DO 62 [facility] [address] [place] [address] 09/09/2024 10:20 EST Office Visit [facility] Endocrinology - [facility] [address] [place] [address] Day Littlejohn MD PhD 62 [facility] [address] [place] [phone] documented as of this encounter Visit Diagnoses Not on filedocumented in this encounter Care Teams Cured Meats Supervisor Relationship Specialty Start Date End Date Yossi Torres MD [address] [place] [address] [facility] [address] [place] [phone] PCP - General 04/17/11 03/14/16 documented as of this encounter
--- OUTSIDE RECORDS SUMMARY | 2024-06-28 13:49 | XMS_ITS | Encounter Summary ---
Author Organization [facility] Address [address] [place] [address] Care Team Providers Care Laboratory Equipment Installer Name Role Phone Yossi Torres MD Primary Care Provider [phone] Reason for Visit * Reason Onset Date Comments Other 09/06/2013 high sodium Encounter Details Date Type Department Care Team (Late st Contact Info) Description 09/06/2013 Telephone [facility] Endocrinology - [facility] [address] [place] [address] Wilder Zaidi, 62 [facility] [address] [place] [address] Other (high sodium ) Social [...] Telephone Encounter - Ramon Lucero - 09/06/2013 3582 EST I spoke with Miguel Angel's sister [...] 07/06/2024 13:40 EST Office Visit [facility] Endocrinology - [address] [address] Wilder Zaidi, 62 [facility] [address] [place] [phone] 09/09/2024 10:20 EST Office Visit [facility] Endocrinology - [address] [address] Day Littlejohn MD PhD 62 [facility] [address] [place] [phone] documented as of this encounter Visit Diagnoses Not on filedocumented in this encounter Care Teams Laboratory Equipment Installer Relationship Specialty Start Date End Date Yossi Torres MD [address] [place] [address] DR BUITRAGO [address] [place] [phone] PCP - General 04/17/11 03/14/16 documented as of this encounter
--- OUTSIDE RECORDS SUMMARY | 2024-06-28 13:49 | XMS_ITS | Encounter Summary ---
Author Organization [facility] Address [address] [place] [address] Care Team Providers Care Supervisor Reactor Fueling Name Role Phone Yossi Torres MD Primary Care Provider [phone] Reason for Visit * Reason Comments Other Encounter Details Date Type Department Care Team (Late st Contact Info) Description 06/28/2012 Refill [facility] Endocrinology - [facility] [address] [place] [address] Wilder Zaidi, 62 [facility] [address] [place] [address] Other Social History Tobacco Use [...] Refills Last Filled Start Date End Date ANDROGEL 1 %(50 mg/5 gram) gel ONE PACKET ONCE DAILY TOPICALLY 30 Packet 5 06/28/2012 3 documented in this encounter Miscellaneous Notes * Telephone Encounter - Karen Tellez - 07/09/2012 1213 EST [facility] documented in this encounter Plan of Treatment Upcoming Encounters Date Type Department Care Team (Late st Contact Info) Description 07/06/2024 13:40 EST Office Visit [facility] Endocrinology - [facility] [address] [place] [address] Wilder Zaidi, 62 [facility] [address] [place] [phone] 09/09/2024 10:20 EST Office Visit [facility] Endocrinology - [facility] [address] [place] [address] Day Littlejohn MD PhD [address] [address] documented as of this encounter Visit Diagnoses Not on filedocumented in this encounter Discontinued Medications Medication Sig Discontinue Reason Start Date End Da te ANDROGEL 1 %(50 mg/5 gram) gel APPLY 5GM (1 PACKET) ONCE DAILY TO SKIN Reorder 12/25/2011 06/28/2012 documented as of this encounter Care Teams Supervisor Reactor Fueling Relationship Specialty Start Date End Date Yossi Torres MD [address] [place] [address] DR BU[address]RAGO [address] [place] [phone] PCP - General 04/17/11 03/14/16 documented as of this encounter
--- OUTSIDE RECORDS SUMMARY | 2024-06-28 13:49 | XMS_ITS | Encounter Summary ---
Author Organization [facility] Address [address] [place] [address] Care Team Providers Care Payroll Assistant Name Role Phone Yossi Torres MD Primary Care Provider +1- [phone] Reason for Visit * Reason Comments Labs Only Encounter Details Date Type Department Care Team (Latest Contact Info) Description 02/01/2014 10:45 EDT Procedure visit [facility] Endocrinology - [facility] [address] [place], [place] [phone] Wilder Zaidi, 62 [facility] [address] [place] [address] Phlebotomy, [facility] Central hypothyroidism Social History Tobacco Use Types [...] Info) Description 07/06/2024 13:40 EST Office Visit [facility] Endocrinology - [address] [address] Wilder Zaidi, 62 [facility] [address] [place] [phone] 09/09/2024 10:20 EST Office Visit [facility] Endocrinology - [address] [address] Day Littlejohn MD PhD [address] [place] [phone] documented as of this encounter Procedures Procedure Name Priority Date/Time Associated Diagnosis Comments T4 FREE Routine 02/01/2014 10:50 EDT Central hypothyroidism documented in this encounter Results * T4 FREE (02/01/2014 10:50 EDT) Free T4 1.4 0.8 - 1.8 ng/dl [facility] Blood specimen (specimen) 02/01/2014 10:50 EDT 02/01/2014 15:54 EDT us Wilder Zaidi DO CHEMISTRY & BLOOD GAS ORDERABLES Final Result Performing Organization Address City/State/[facility] Co de Phone Number [facility] [address] [place] [address] documented in this encounter Visit Diagnoses Diagnosis Central hypothyroidism Unspecified hypothyroidism documented in this encounter Care Teams Payroll Assistant Relationship Specialty Start Date End Date Yossi Torres MD [address] [place] [address] [address] [place] [phone] PCP - General 04/17/11 03/14/16 documented as of this encounter
--- OUTSIDE RECORDS SUMMARY | 2024-06-28 13:49 | XMS_ITS | Encounter Summary ---
Author Organization [facility] Address [address] [place] [address] Care Team Providers Care Student Outreach Coordinator Name Role Phone Yossi Torres MD Primary Care Provider [phone] Reason for Visit * Reason Onset Date Comments Results 07/29/2013 Encounter Details Date Type Department Care Team (Late st Contact Info) Description 07/29/[address] [facility] Endocrinology - [facility] [address] [place] [address] Wilder Zaidi, 62 [facility] [address] [place] [address] Results Social History Tobacco [...] Filled Start Date End Date levothyroxine (SYNTHROID) 175 mcg tablet Take 1 [...] reviewed the patient's mostrecent laboratory results from [facility] dated 07/26/13. Advise that sodium is normal [...] Office Visit [facility] Endocrinology - [address] [address] Wilder Zaidi DO [address] [place] [address] 09/09/2024 10:[address] [facility] Endocrinology - [address] [address] Day Littlejohn MD PhD [address] [place] [address] documented as of this encounter Visit Diagnoses Not on filedocumented in this encounter Discontinued Medications Medication Sig Discontinue Reason Start Date End Da te levothyroxine (SYNTHROID) 200 mcg tabletIndications:Gonadotro pin deficiency (HCC-CMS),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HCC-CMS),Panhypopituitaris m (HCC-CMS),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HCC-CMS),Secondary hypothyroidism Take 1 Tab by mouth daily. Dose adjustment 07/26/2013 07/29/2013 documented as of this encounter Care Teams Student Outreach Coordinator Relationship Specialty Start Date End Date Yossi Torres MD [address] [place] [address] [address] [place] [phone] PCP - General 04/17/11 03/14/16 documented as of this encounter
--- OUTSIDE RECORDS SUMMARY | 2024-06-28 13:49 | XMS_ITS | Encounter Summary ---
Author Organization [facility] Address [address] [place] [address] Care Team Providers Care Residential Energy Auditor Name Role Phone Yossi Torres MD Primary Care Provider [phone] Reason for Visit * Reason Onset Date Comments Update 09/13/2013 Encounter Details Date Type Department Care Team (Late st Contact Info) Description 09/13/2013 Telephone [facility] Endocrinology - [facility] [address] [phone] Wilder Zaidi, 62 [facility] [address] [place] [address] Update Social History Tobacco Use [...] 13:40 EST Office Visit [facility] Endocrinology - [facility] [address] [place] [address] Wilder Zaidi, 62 [facility] [address] [place] [address] 09/09/2024 10:20 EST Office Visit [facility] Endocrinology - [facility] [address] [place] [address] Day Littlejohn MD PhD 62 [facility] [address] [place] [address] documented as of this encounter Visit Diagnoses Not on filedocumented in this encounter Care Teams Residential Energy Auditor Relationship Specialty Start Date End Date Yossi Torres MD [address] [place] [phone] PCP - General 04/17/11 03/14/16 documented as of this encounter
--- OUTSIDE RECORDS SUMMARY | 2024-06-28 13:49 | XMS_ITS | Encounter Summary ---
Author Organization [facility] Address [address] [place] [address] Care Team Providers Care Chemical Dependency Professional Name Role Phone Yossi Torres MD Primary Care Provider [phone] Reason for Visit * Reason Onset Date Comments Follow-up 03/31/2015 Encounter Details Date Type Department Care Team (Late st Contact Info) Description 03/31/2015 Telephone [facility] Endocrinology - [facility] [address] [place] [address] Wilder Zaidi, 62 [facility] [address] [place] [address] Follow-up Social History Tobacco Use [...] EDT Phone call to Lali (nurse at [facility]) Left message on her personal voice mail Per Dr. Zaidi please repeat Sodium level on Friday04/03/15. Sodium level was 146 ([id number]) * Telephone Encounter - Addie Burgess - 03/31/2015 1010 EDT Reason for Call: Follow-up Summary/Symptoms: Lali (RN) requesting a call back when nurses receive pt's sodium levels from [facility]. Addie Burgess 03/31/2015 10:10 documented in this encounter Plan of Treatment Upcoming Encounters Date Type Department Care Team (Late st Contact Info) Description 07/06/2024 13:40 EST Office Visit [facility] Endocrinology - [address] [address] Wilder Zaidi, 62 [facility] [address] [place] [address] 09/09/2024 10:20 EST Office Visit [facility] Endocrinology - [address] [phone] Day Littlejohn MD PhD [address] [phone] documented as of this encounter Visit Diagnoses Not on filedocumented in this encounter Care Teams Chemical Dependency Professional Relationship Specialty Start Date End Date Yossi Torres MD [address] [place] [address] [address] [place] [phone] PCP - General 04/17/11 03/14/16 documented as of this encounter
--- OUTSIDE RECORDS SUMMARY | 2024-06-28 13:50 | XMS_ITS | Encounter Summary ---
Author Organization [facility] Address [address] [place] [address] Care Team Providers Care Moss Bleacher Name Role Phone Yossi Torres MD Primary Care Provider [phone] Reason for Visit * Reason Onset Date Comments Other 01/06/2012 not urinating ye sterday Encounter Details Date Type Department Care Team (Late st Contact Info) Description 01/06/2012 Telephone [facility] Endocrinology - [facility] [address] [place] [address] Wilder Zaidi DO 62 [facility] [address] [place] [address] Other (not urinating yesterday) Social [...] EST Office Visit [facility] Endocrinology - [address] [phone] Wilder Zaidi DO [address] [address] 09/09/2024 10:20 EST Office Visit [facility] Endocrinology [address] [phone] Day Littlejohn MD PhD [address] [place] [phone] documented as of this encounter Visit Diagnoses Not on filedocumented in this encounter Care Teams Moss Bleacher Relationship Specialty Start Date End Date Yossi Torres MD [address] [place] [address] [address] [place] [phone] PCP - General 04/17/11 03/14/16 documented as of this encounter
--- OUTSIDE RECORDS SUMMARY | 2024-06-28 13:50 | XMS_ITS | Encounter Summary ---
Author Organization [facility] Address [address] [place] [address] Care Team Providers Care Regulatory Affairs Specialist Name Role Phone Yossi Torres MD Primary Care Provider [phone] Reason for Visit * Reason Comments Other Encounter Details Date Type Department Care Team (Late st Contact Info) Description 04/16/2012 Refill [facility] Endocrinology [facility] [address] [place], [place] [phone] Wilder Zaidi DO [address] [facility] [address] [place] [address] Other Social History Tobacco Use [...] TABLET AT BEDTIME 140 Each 2 04/16/2012 3 documented in this encounter Plan of Treatment Upcoming Encounters Date Type Department Care Team (Late st Contact Info) Description 07/06/2024 13:40 EST Office Visit [facility] Endocrinology [facility] [address] [place], [place] [phone] Wilder Zaidi, DO [address] [facility] [address] [place] [address] 09/09/2024 10:20 EST Office Visit [facility] Endocrinology - [facility] [address] [place] [address] Day Littlejohn MD PhD [address] [facility] [address] [place] [address] documented as of this encounter Visit Diagnoses Not on filedocumented in this encounter Discontinued Medications Medication Sig Discontinue Reason Start Date End Da te desmopressin (DDAVP) 0.1 mg tablet Take one tab in the morning and 1/2 tab at bedtime Reorder 05/03/2011 04/16/2012 documented as of this encounter Care Teams Regulatory Affairs Specialist Relationship Specialty Start Date End Date Yossi Torres MD [address] [place] [address] [address] [place] [phone] PCP - General 04/17/11 03/14/16 documented as of this encounter
--- OUTSIDE RECORDS SUMMARY | 2024-06-28 13:50 | XMS_ITS | Encounter Summary ---
Author Organization [facility] Address [address] [place] [address] Care Team Providers Care Rodbuster Name Role Phone Akil Serrano MD Primary Care Provider [phone] Reason for Visit * Reason Onset Date Comments Medication Management 06/20/2010 Bettina hankins ld like call back regarding medication change. Encounter Details Date Type Department Care Team (Late Contact Info) Description 06/20/2010 Telephone [facility] Endocrinology - [facility] [address] [place] [address] Wilder Zaidi DO 62 [facility] [address] [place] [address] Medication Management (Bettina would like [...] Encounter - Wilder Zaidi DO - 06/22/2010 1503 EST Left message with Bettina. documented in this encounter Plan of Treatment Upcoming Encounters Date Type Department Care Team (Late st Contact Info) Description 07/06/2024 13:40 EST Office Visit [facility] Endocrinology - [facility] [address] [place] [address] Wilder Zaidi, 62 [facility] [address] [place] [address] 09/09/2024 10:20 EST Office Visit [facility] Endocrinology - [facility] [address] [place] [address] Day Littlejohn MD PhD [address] [address] documented as of this encounter Visit Diagnoses Not on filedocumented in this encounter Care Teams Rodbuster Relationship Specialty Start Date End Date Akil Serrano MD [address] [place], [place] [address] PCP - General 02/21/10 04/16/11 documented as of this encounter
--- OUTSIDE RECORDS SUMMARY | 2024-06-28 13:50 | XMS_ITS | Encounter Summary ---
Author Organization [facility] Address [address] [place] [address] Care Team Providers Care Smasher Name Role Phone Akil Serrano MD Primary Care Provider [phone] Reason for Visit * Reason Onset Date Comments Results 11/26/2010 Sodium 151 up fr om 148 last week on 80 oz daily water (increase from baseline) - I told her to go up to 100 oz daily water and recheck Encounter Details Date Type Department Care Team (Late st Contact Info) Description 11/26/2010 Telephone [facility] Endocrinology - [address] [address] Ramon Lucero MD [address] [place] [address], [address] [phone] Results (Sodium 151 up from [...] Telephone Encounter - Ramon Lucero - 11/26/2010 3421 EDT Sodium 151 up from 148 last week on 80 oz daily water (increase from baseline) - I told her to go up to 100 oz daily water and recheck . documented in this encounter Plan of Treatment Upcoming Encounters Date Type Department Care Team (Late st Contact Info) Description 07/06/2024 13:40 EST Office Visit [facility] Endocrinology - [address] [address] Wilder Zaidi, 62 [facility] [address] [place] [address] 09/09/2024 10:20 EST Office Visit [facility] Endocrinology - [address] [address] Day Littlejohn MD PhD [address] [place] [address] documented as of this encounter Visit Diagnoses Not on filedocumented in this encounter Care Teams Smasher Relationship Specialty Start Date End Date Akil Serrano MD [address] [address] [place] [address] PCP - General 02/21/10 04/16/11 documented as of this encounter
--- OUTSIDE RECORDS SUMMARY | 2024-06-28 13:50 | XMS_ITS | Encounter Summary ---
Author Organization [facility] Address [address] [place] [address] Care Team Providers Care Community Coordinator For High School Name Role Phone Akil Serrano MD Primary Care Provider [phone] Encounter Details Date Type Department Care Team (Latest Contact Info) Description 08/31/2010 10:42 EST - 08/31/2010 23:37 EST Hospital Encounter [facility] Perioperative Services- [facility] [address] [place], [place] [address] Hilton Quick MD [address] [place] [phone] Discharge Disposition: Home [...] this encounter Medications at Time of Discharge Cholecalciferol, Vitamin D3, 400 unit Tab Take 2.5 Tablets by mouth daily. 08/24/2010 Melatonin 3 mg Tab Take 10 mg by mouth at bedtime. 08/24/2010 quetiapine (SEROQUEL) 300 mg tablet Take 200 mg by mouth at bedtime. 08/24/2010 desmopressin (DDAVP) 0.1 mg tabletIndications :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HCC-CMS) Take by mouth. [...] or cancellation due to eating * Maxine Vines, RN - 08/24/2010 1450 EST Miguel Angel [...] Visit [facility] Endocrinology - [address] [address] Wilder Zaidi, [address] [place] [address] 09/09/2024 10:20 EST Office Visit [facility] Endocrinology - [address] [address] Day Littlejohn MD PhD [address] [place] [address] documented as of this encounter Visit Diagnoses Not on filedocumented in this encounter Discontinued Medications Medication Sig Discontinue Reason Start Date End Da te zonisamide (ZONEGRAN) 25 mg capsule Take 25 mg by mouth daily. Takes 75 mg @@ HS Therapy completed 08/24/2010 documented as of this encounter Historical Medications * This list may reflect changes made after this encounter. Melatonin 3 mg Tab Take 10 mg by mouth at bedtime. 08/24/2010 ZONISAMIDE ORAL Take 75 mg by mouth at bedtime. 08/24/2010 12/27/2014 added in this encounter Care Teams Community Coordinator For High [employer] Relationship Specialty Start Date End Date Akil Serrano MD [address] [facility] [place] [address] PCP - General 02/21/10 04/16/11 documented as of this encounter
--- OUTSIDE RECORDS SUMMARY | 2024-06-28 13:50 | XMS_ITS | Encounter Summary ---
Author Organization [facility] Address [address] [place] [address] Care Team Providers Care Customer Acquisition Specialist Name Role Phone Akil Serrano MD Primary Care Provider [phone] Encounter Details Date Type Department Care Team (Late st Contact Info) Description 02/21/2010 11:47 EDT - 02/21/2010 23:59 EDT Hospital Encounter [facility] [address] [place] [address] [facility] [address] [place] [phone] Discharge Disposition: Home or Self Care Social History Tobacco Use Types Packs/Day Years Used Date Smoking Tobacco: Never Assessed Sex and Gender Information Value Date Recorded Sex Assigned at Not on file Legal Sex Male 18:35 EST Gender Identity Not on file Sexual Orientation Not on file documented as of this encounter Discharge Disposition Disposition Code Departure Means Destination Home or Self Correction documented in this encounter Plan of Treatment Upcoming Encounters Date Type Department Care Team (Late st Contact Info) Description 07/06/2024 13:40 EST Office Visit [facility] Endocr[facility] - [facility] [address] [place] [address] Wilder Zaidi, DO 62 [facility] [address] [place] [phone] 09/09/2024 10:20 EST Office Visit [facility] Endocrinology - [facility] [address] [place], [place] [phone] Day Litltejohn MD PhD 62 [facility] [address] [place] [address] documented as of this encounter Visit Diagnoses Not on filedocumented in this encounter Care Teams Customer Acquisition Specialist Relationship Specialty Start Date End Date Akil Serrano MD [address] [place] [address] PCP - General 02/21/10 04/16/11 documented as of this encounter
--- OUTSIDE RECORDS SUMMARY | 2024-06-28 13:50 | XMS_ITS | Encounter Summary ---
Author Organization [facility] Address [address] [place] [address] Care Team Providers Care Pharmacy Manager Name Role Phone Akil Serrano MD Primary Care Provider Encounter Details Date Type Department Care Team (Late st Contact Info) Description 12/13/2010 Results Only Imaging [facility] [phone] Yossi Torres MD [address] [place] [address] [address] [place] [phone] Social History Tobacco Use Types Packs/Day Years [...] 07/06/2024 13:40 EST Office Visit [facility] Endocrinology - [facility] [address] [place] [address] Wilder Zaidi DO 62 [facility] [address] [place] [address] 09/09/2024 10:20 EST Office Visit [facility] Endocrinology - [facility] [address] [place] [address] Day Littlejohn MD PhD 62 [facility] [address] [place] [address] documented as of this encounter Visit Diagnoses Not on filedocumented in this encounter Care Teams Pharmacy Manager Relationship Specialty Start Date End Date Akil Serrano MD 74 [facility] [address] [place], [place] [address] PCP - General 02/21/10 04/16/11 documented as of this encounter
--- OUTSIDE RECORDS SUMMARY | 2024-06-28 13:50 | XMS_ITS | Encounter Summary ---
Author Organization [facility] Address [address] [place] [address] Care Team Providers Care Electroencephalographic Technologist Name Role Phone Akil Serrano MD Primary Care Provider [phone] Reason for Visit * Reason Onset Date Comments Medication Problem 07/10/2010 REQUESTING CA LL BACK TO DISCUSS PT'S MEDICATION. REQUESTING CALL BACK FROM THE Encounter Details Date Type Department Care Team (Late st Contact Info) Description [facility]2010 [facility] [address] [address] Wilder Zaidi DO 62 [facility] [address] [place] [address] Medication Problem (REQUESTING CALL BACK [...] Encounter - Wilder Zaidi DO - 07/10/2010 8352 EST Spoke with Bettina Michelle's sister. She [...] slight darkening of his urine. Miguel Angel's optical sales associate Marta noticed a continued decrease in urination to 3 times per day and dark beer colored urine Sunday 07/09 and Monday 07/10. Patient had sodium level drawn on 07/09/10 at [facility] ER after being told to go [...] Bettina to speak with Marta (Miguel Angel's optical sales associate) and reduce DDAVP to 0.1 mg tablet one half tab BID and to increase fluid to 60 oz per day. Miguel Angel will have a repeat sodium level in the am Friday07/11/10. I have faxed the orders to [facility]. I advised Bettina to have Miguel Angel taken to ED if hiscondition were to change. documented in this encounter Plan of Treatment Upcoming Encounters Date Type Department Care Team (Late st Contact Info) Description 07/06/2024 13:[address] [facility] Endocrinology - [address] [address] Wilder Zaidi DO [address] [place] [address] 09/09/2024 10:[address] [facility] Endocrinology - [address] [address] Day Littlejohn MD PhD [address] [place] [address] documented as of this encounter Visit Diagnoses Diagnosis 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[facility])- Primary Diabetes insipidus documented in this encounter Care Teams Electroencephalographic Technologist Relationship Specialty Start Date End Date Akil Serrano MD 74 [facility] [address] [place] [address] PCP - General 02/21/10 04/16/11 documented as of this encounter
--- OUTSIDE RECORDS SUMMARY | 2024-06-28 13:50 | XMS_ITS | Encounter Summary ---
Author Organization [facility] Address [address] [place] [address] Care Team Providers Care Circular Knife Machine Cutter Name Role Phone Akil Serrano MD Primary Care Provider [phone] Reason for Visit * Reason Onset Date Comments Medication Problem 06/19/2010 Encounter Details Date Type Department Care Team (Late st Contact Info) Description 06/19/2010 Refill [facility] Endocrinology - [facility] [address] [place], [place] [phone] Wilder Zaidi DO [address] [facility] [address] [place] [address] Medication Problem Social History Tobacco [...] Date End Date desmopressin (DDAVP) 0.1 mg tabletIndications:P rimary central diabetes insipidus (HCC-CMS) Take by mouth. Take one-half tab by mouth twice a day. 15 Tab 11 06/19/2010 03/19/2011 documented in this encounter Miscellaneous Notes * Telephone Encounter - Wilder Zaidi, - 06/19/2010 8982 EST Spoke with Gerry nurse Radha this afternoon. There is a manufactures delay [...] you have been able to find it. [phone] documented in this encounter Plan of Treatment Upcoming Encounters Date Type Department Care Team (Late st Contact Info) Description 07/06/2024 13:40 EST Office Visit [facility] Endocrinology - [address] [address] Wilder Zaidi DO [address] [address] 09/09/2024 10:20 EST Office Visit [facility] Endocrinology - [address] [phone] Day Littlejohn MD PhD [address] [place] [address] [place] [address] documented as of this encounter Visit Diagnoses Diagnosis 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HCC-CMS)- Primary Diabetes insipidus documented in this encounter Discontinued Medications Medication Sig Discontinue Reason Start Date End Da te DESMOPRESSIN ACETATE (DESMOPRESSIN INJ) Inject as directed. Takes .08 ml SQ BID 06/19/2010 documented as of this encounter Care Teams Circular Knife Machine Cutter Relationship Specialty Start Date End Date Akil Serrano MD [address] [facility] [address] [place] [address] PCP - General 02/21/10 04/16/11 documented as of this encounter
--- OUTSIDE RECORDS SUMMARY | 2024-06-28 13:50 | XMS_ITS | Encounter Summary ---
Author Organization [facility] Address [address] [place] [address] Care Team Providers Care Prosthetics Lab Technician Name Role Phone Yan Demarco MD Primary Care Provider [phone] Encounter Details Date Type Department Care Team (Late st Contact Info) Description 10/04/2009 12:00 EDT - 10/04/2009 23:59 EDT Hospital Encounter [facility] [address] [place] [address] [facility] [address] [place] [phone] Discharge Disposition: Home or Self Care Social History Tobacco Use Types Packs/Day Years Used Date Smoking Tobacco: Never Assessed Sex and Gender Information Value Date Recorded Sex Assigned at Not on file Legal Sex Male 18:35 EST Gender Identity Not on file Sexual Orientation Not on file documented as of this encounter Discharge Disposition Disposition Code Departure Means Destination Home or Self Snf documented in this encounter Plan of Treatment Upcoming Encounters Date Type Department Care Team (Late st Contact Info) Description 07/06/2024 13:[address] [facility] Endocrinology - [facility] [address] [place], [place] [phone] Wilder Zaidi, DO [address] [facility] [address] [place] [phone] 09/09/2024 10:[address] [facility] Endocrinology - [facility] [address] [place] [address] Day Littlejohn MD PhD [address] [facility] [address] [place] [address] documented as of this encounter Procedures Procedure Name Priority Date/Time Associated Diagnosis Comments T4 FREE Routine 10/04/2009 12:42 EDT SODIUM Routine 10/04/2009 12:42 EDT documented in this encounter Results * SODIUM (10/04/2009 12:42 EDT) Sodium 140 136 - 145 mEq/L [facility] Blood specimen (specimen) 10/04/2009 12:42 EDT 10/04/2009 12:43 EDT [facility] CHEMISTRY & BL OOD GAS ORDERABLES Final Result Performing Organization Address City/[facility] Co de Phone Number [facility] [address] [place] [address] * T4 FREE (10/04/2009 12:42 EDT) Free T4 1.4 0.8 - 1.8 ng/dL [facility] Blood specimen (specimen) 10/04/2009 12:42 EDT 10/04/2009 12:43 EDT [facility]yler [facility]to [facility] CHEMISTRY & BL OOD GAS ORDERABLES Final Result Performing Organization Address City/[facility] Co de Phone Number [facility] [address] [place] [address] documented in this encounter Visit Diagnoses Not on filedocumented in this encounter Care Teams Prosthetics Lab Technician Relationship Specialty Start Date End Date Yan Demarco MD [address] [place] [address] PCP - General 2/16/10 8/17/10 documented as of this encounter
--- OUTSIDE RECORDS SUMMARY | 2024-06-28 13:50 | XMS_ITS | Encounter Summary ---
Author Organization [facility] Address [address] [place] [address] Care Team Providers Care Chimney Construction Supervisor Name Role Phone Akil Serrano MD Primary Care Provider [phone] Encounter Details Date Type Department Care Team (Late st Contact Info) Description 01/25/2011 Results Only Imaging [facility] [phone] Yossi Torres MD [address] [place] [address] [address] [place] [phone] Social History Tobacco Use Types Packs/Day Years [...] Info) Description 07/06/2024 13:40 EST Office Visit [facility] Endocrinology - [facility] [address] [place] [address] Wilder Zaidi DO 62 [facility] [address] [place] [address] 09/09/2024 10:20 EST Office Visit [facility] Endocrinology - [facility] [address] [place] [address] Dya Littlejohn MD PhD [address] [employer] [address] [place] [phone] documented as of this encounter Procedures [...] above interpretation and agree with the findings. us Yossi Torres MD IMG MRI ORDERABLES Final Re sult documented in this encounter Visit Diagnoses Not on filedocumented in this encounter Care Teams Chimney Construction Supervisor Relationship Specialty Start Date End Date Akil Serrano MD [address] [facility] [place] [address] PCP - General 02/21/10 04/16/11 documented as of this encounter
--- OUTSIDE RECORDS SUMMARY | 2024-06-28 13:50 | XMS_ITS | Encounter Summary ---
Author Organization [facility] Address [address] [place] [address] Care Team Providers Care Knockdown Worker Name Role Phone Akil Serrano MD Primary Care Provider [phone] Encounter Details Date Type Department Care Team (Late st Contact Info) Description 02/24/2011 22:08 EDT - 02/25/2011 18:38 EDT Hospital Encounter [facility] Neurosurgery Unit [address] [place], [place] [phone] Jason Olea MD [address] [facility] [place] [address] Anatoliy Perez MD [address] [place] [phone] 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CMS-HCC) (HCC-CMS) [...] history, PICA syndrome, and seizure history. Mr. Brugos is scheduled for an MRI on 02/24/11. [...] Anatoliy Marrufo MD Discharge Summary Completed: 02/25/2011 Cosigned by Anatoliy Perez at 02/26/2011 9:57 EDT documented in this encounter Discharge Instructions * [...] at bedtime. 08/24/2010 desmopressin (DDAVP) 0.1 mg tabletIndication s: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HCC-CMS) Take by mouth. [...] past HH use. They do have a steelworker who assist's Miguel Angel when he stay's [...] Notes * Elsi Guillen MD - 02/24/2011 2190 EDT Neurosurgery Chief Complaint/ History of Present Illness/ Miguel Angel Judy Burgos Jr. is a 20 y.o. Male with a [...] spontaneously and on command. UE strength, 5/5, blender helper bilaterally Downward toes No clonus Assesment/ [...] SAYRA/SCD for DVT prophylaxis Elsi Guillen MD Cosigned by Anatoliy Perez at 02/26/2011 9:57 EDT documented in this encounter Procedure Notes * Senior Accounting Associate, Scan - 02/24/2011 0000 EDTAssociated Order(s): ECG REPORT - SCANNED documented in this encounter OR Notes * Anesthesia Procedure Notes - Senior Accounting Associate, Scan - 02/24/2011 0000 EDT * Anesthesia Procedure Notes - Senior Accounting Associate, Scan - 02/24/2011 0000 EDT documented in [...] rating were reviewed: Height: 170.2 cm (67) (02/25/11 141), Weight : 83.462 kg (184 lb) (02/25/11 141), BSA (Calculated - sq m): 1.99 sq meters (02/25/111415), Temp: 36 ??C (96.8 ??F) (02/25/11 1515), Heart Rate: 75 BPM (02/25/11 1515), BP: 115/61 mmHg (02/25/11 1515), Resp: 18 (02/25/11 1515), SpO2: 98 % (02/25/11 1515),Adult Nonverbal Pain ScaleTotal: 0 Total Vocal: 1 [...] No High Blood Pressure: No History of LA: No Cardiac Functional Limitations:: <4 METS Angina/Palpitations: [...] patient checks Active Multi-Disciplinary problems: FALL RISK [[id number]] (02/25/11) Data: patient lying with eyes closed [...] Call morris at BS. Caregiver at BS. /4 siderails up. Response: pt sleeping comfortably. Continue to monitor Lali Park RN 02/25/2011 3:01 * Scanned Note-Null - Senior Accounting Associate, Scan - 02/24/2011 0000 EDT * Scanned Note-Null - Senior Accounting Associate, Scan - 02/24/2011 0000 EDT * Scanned Note-Null - Senior Accounting Associate, Scan - 02/24/2011 0000 EDT documented in this encounter Plan of Treatment Upcoming Encounters Date Type Department Care Team (Late st Contact Info) Description 07/06/2024 13:40 EST Office Visit [facility] Endocrinology [address] [address] Wilder Zaidi, [address] [place] [address] [place] [phone] 09/09/2024 10:20 EST Office Visit [facility] Endocrinology - [address] [address] Day Littlejohn MD PhD [address] [place] [phone] documented as of this encounter Procedures Procedure Name Priority Date/Time Associated Diagnosis Comments ECG REPORT - SCANNED 02/28/2011 11:47 EDT documented in this encounter Results * ECG REPORT - SCANNED (02/28/2011 11:47 EDT) 02/28/2011 11:4 7 EDT Narrative Procedure Note Senior Accounting Associate, Scan - 02/24/2011 0:00 EDT us Scan Senior Accounting Associate PROCEDURE/MINOR SURGICAL ORDEmerald HANNON Final Result documented in this encounter Visit Diagnoses Diagnosis 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HCC-CMS) Diabetes insipidus documented in this encounter Administered Medications Inactive Administered Medications - up to 3 most recent administrations Medication Order MAR Action Action Date Dose Rate Site Cholecalciferol (Vitamin D3) tablet 400 Units 400 Units, oral, 2 TIMES DAILY, First dose on Fri02/24/11 at 2245, Until Discontinued, Routine Given 02/25/2011 8:03 EDT 400 Units desmopressin (DDAVP) tablet 0.05 mg 0.05 mg, oral, 2 TIMES DAILY, First dose (after last modification) on Fri02/25/11 at 0900, Until Discontinued, RoutineIndications: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HCC-CMS) Given 02/25/2011 8:04 EDT 0.05 mg hydrocortisone [...] may reflect changes made after this encounter. acetaminophen (TYLENOL) 325 mg tablet Take 200 [...] Lali Park RN - Reason: Patient/family refused) 0803 (Given - Provider: Indiana Lawson RN) desmopressin [...] gave only 10mg)1803 (Hold - Provider: Lindsey Amaro - Reason: Other - Comment: pt get [...] on 02/24/11 at 2227, Until Fri02/25/11 at 2040, Pain, Fever, Routine Linked Groups Order Group 1: acetaminophen (TYLENOL) tablet 325-650 mgJump to med 325-650 mg, oral, EVERY 4 HOURS PRN, Starting on 02/24/11 at 2227, Until Fri02/25/11 at 2040, Pain, Fever, Routine Or acetaminophen (TYLENOL) solution 325-650 mg (CANCELED) 325-650 mg, per ng tube, EVERY 4 HOURS PRN, Starting on 02/24/11 at 2227, Until Fri02/25/11 at 2040, Pain, Fever, Routine Or acetaminophen (TYLENOL) suppository 325-650 mg (CANCELED) 325-650 mg, rectal, EVERY 4 HOURS PRN, Starting on 02/24/11 at 2227, Until Fri02/25/11 at 204, Pain, Fever, Routine documented in this encounter [...] 1 02/24/2011 acetaminophen (TYLENOL) tablet 325-650 mg 02/24/2011 desmopressin (DDAVP) tablet 0.1 mg 1 [...] 1 02/25/2011 NOTIFY PPS OF DISCHARGE COMPLETE 1 02/26/20 11 NOTIFY PPS PATIENT ARRIVAL IN PACU 1 2010 NOTIFY PPS PATIENT TRANSFERRED OUT OF PACU 1 02/25/2011 PPS NOTIFICATION OF PATIENT ARRIVAL ON UNIT 1 02/25/2011 ADMIT TO OBSERVATION 1 02/24/2011 ADMITTING CONDITION 1 02/24/2011 TEACHING SERVICE 1 02/24/2011 Discharge Count Last Ordered Date First Orde red Date DISCHARGE PATIENT 1 02/25/2011 documented in this encounter Care Teams Knockdown Worker Relationship Specialty Start Date End Date Akil Serrano MD [address] [facility] [place] [address] PCP - General 02/21/10 04/16/11 documented as of this encounter
--- OUTSIDE RECORDS SUMMARY | 2024-06-28 13:50 | XMS_ITS | Encounter Summary ---
Author Organization [facility] Address [address] [place] [address] Care Team Providers Care Economic Development Specialist Name Role Phone Corin Skinner MD Primary Care Provider [phone] Encounter Details Date Type Department Care Team (Latest Contact Info) Description 12/28/2008 9:53 EDT - 12/28/2008 23:59 EDT Hospital Encounter [facility] [address] [place] [address] Jacqueline Early MD [address] [place] [phone] Discharge Disposition: Home or Self Care Social History Tobacco Use Types Packs/Day Years Used Date Smoking Tobacco: Never Assessed Sex and Gender Information Value Date Recorded Sex Assigned at Not on file Legal Sex Male 18:35 EST Gender Identity Not on file Sexual Orientation Not on file documented as of this encounter Discharge Disposition Disposition Code Departure Means Destination Home or Self Residential documented in this encounter Plan of Treatment Upcoming Encounters Date Type Department Care Team (Late st Contact Info) Description 07/06/2024 13:40 EST Office Visit [facility] Endocrinology - [facility] [address] [place] [address] Wilder Zaidi, DO 62 [facility] [address] [place] [phone] 09/09/2024 10:20 EST Office Visit [facility] Endocrinology - [facility] [address] [place] [address] Day Littlejohn MD PhD [address] [facility] [address] [place] [address] documented as of this encounter [...] NEG [facility] Comment:PER FATHER Specific [place], Urine Unable to obtain specimen 1.005 - 1.02 [facility] Comment:PER FATHER Blood, UA Unable to obtain specimen(A) [facility] Comment:PER FATHER pH, UA Unable to obtain specimen 5.0 - 9.0 [facility] Comment:PER FATHER Protein, UA Unable to obtain specimen(A) NEG [facility] Comment:PER FATHER Urobilinogen, UA Unable to obtain specimen 0.2 - 1.0 mg/dL [facility] Comment:PER FATHER Nitrite, UA Unable to obtain specimen(A) NEG [facility] Comment:PER FATHER Leuk Esterase Unable to obtain specimen(A) NEG [facility] Comment:PER FATHER Urine specimen (specimen) 12/28/2008 11:03 EDT 12/28/2008 11:04 EDT Jacqueline Early MD URINALYSIS ORDERABLES Final Re sult Performing Organization Address [facility] Co de Phone Number [facility] [address] [place] [address] * DIRECT BILIRUBIN (12/28/2008 10:01 EDT) Pathologist [facility] Conjugated Bilirubin 0.0 0.0 - 0.3 mg/dl [facility] Unconjugated Bilirubin 0.3 0.1 - 1.1 mg/dl [facility] 12/28/2008 10:0 1 EDT 12/28/2008 10:22 EDT us Jacqueline Early MD CHEMISTRY & BLOOD GAS ORDERABL ES Final Result Performing Organization Address [facility] de Phone Number [facility] [address] [place] [address] * (ABNORMAL) COMPREHENSIVE METABOLIC PANEL (12/28/2008 10:01 EDT) Pathologist [facility] Potassium 4.4 3.5 - 5.0 mEq/L [facility] Sodium 137 136 - 145 mEq/L [facility] Chloride 101 96 - 110 mEq/L [facility] CO2 26 24 - 32 mEq/L [facility] Alkaline Phosphatase 106 38 - 126 U/L [facility] Bilirubin, Total <0.5 0.2 - 1.3 mg/dl [facility] AST 18 15 - 46 U/L [facility] ALT 30 21 - 72 U/L [facility] Albumin 4.6 3.4 - 4.9 g/dl [facility] Total Protein 7.4 6.5 - 8.3 g/dl [facility] Creatinine 0.69(L) 0.7 - 1.5 mg/dl [facility] GFR, Calculated >60 ml/min/1.7 3m2 [facility] BUN 13 10 - 26 mg/dl [facility] Calcium 9.6 8.5 - 10.5 mg/dl [facility] Calculated Calcium 9.4 8.5 - 10.5 mg/dl [facility] Glucose, Serum 49(LL) 70 - 100 mg/dl [facility] Comment:Sample retested, res ult confirmed Fasting? Unknown [facility] 12/28/2008 10:0 1 EDT 12/28/2008 10:22 EDT us Jacqueline Early MD CHEMISTRY & BLOOD GAS ORDERABL ES Final Result Performing Organization Address [facility] de Phone Number [facility] [address] [place] [address] * TESTS ADDED BY PHONE (12/28/2008 10:01 EDT) Tests to be added CMP,DBIL [facility] Diagnosis Code SAME [facility] Who Called [facility] Location Code [facility] Read Back/Confirmed ? YES [facility] 12/28/2008 10:0 1 EDT 12/28/2008 10:22 EDT us Jacqueline Early MD CHEMISTRY & BLOOD GAS ORDERABL ES Final Result Performing Organization Address City/[facility] Co de Phone Number [facility] [address] [place] [address] * CORTISOL (12/28/2008 10:01 EDT) Cortisol 18 ug/dl [facility] Comment: 7-9a.m.=4.3-22.4 3-5p.m.=3.1-16.7 Blood specimen (specimen) 12/28/2008 10:01 EDT 12/28/2008 10:22 EDT us Jacqueline Early MD CHEMISTRY & BLOOD GAS ORDERABL ES Final Result Performing Organization Address [facility] de Phone Number [facility] [address] [place] [address] * ELECTROLYTES (12/28/2008 10:01 EDT) Sodium 137 136 - 145 mEq/L [facility] Potassium 4.4 3.5 - 5.0 mEq/L [facility] Chloride 101 96 - 110 mEq/L [facility] CO2 26 24 - 32 mEq/L [facility] Blood specimen (specimen) 12/28/2008 10:01 EDT 12/28/2008 10:22 EDT us Jacqueline Early MD CHEMISTRY & BLOOD GAS ORDERABL ES Final Result Performing Organization Address [facility] de Phone Number [facility] [address] [place] [address] * (ABNORMAL) GLUCOSE, SERUM (12/28/2008 10:01 EDT) Glucose, Serum 49(LL) 70 - 100 mg/dl [facility] Comment:Sample retested, res ult confirmed Blood specimen (specimen) 12/28/2008 10:01 EDT 12/28/2008 10:22 EDT us Jacqueline Early MD CHEMISTRY & BLOOD GAS ORDERABL ES Final Result Performing Organization Address [facility] de Phone Number [facility] [address] [place] [address] documented in this encounter Visit Diagnoses Not on filedocumented in this encounter Care Teams Economic Development Specialist Relationship Specialty Start Date End Date Corin Skinner MD [address] [place] [phone] PCP - General 10/24/08 08/21/09 documented as of this encounter
--- OUTSIDE RECORDS SUMMARY | 2024-06-28 13:50 | XMS_ITS | Encounter Summary ---
Author Organization [facility] Address [address] [place] [address] Care Team Providers Care Care Manager Name Role Phone Yossi Torres MD Primary Care Provider [phone] Reason for Visit * Reason Onset Date Comments Medications Refill 06/18/2011 Encounter Details Date Type Department Care Team (Late st Contact Info) Description 06/18/2011 Refill [facility] [address] [place] [address] Georgia Rice RN Medications Refill Social [...] Info) Description 07/06/2024 13:40 EST Office Visit [facility] [address] [place] [address] Wilder Zaidi DO 62 [facility] [address] [place] [address] 09/09/2024 10:20 EST Office Visit [facility] Endocrinology - [facility] [address] [place] [address] Day Littlejohn MD PhD [address] [facility] [address] [place] [address] documented as of this encounter Visit Diagnoses Not on filedocumented in this encounter Discontinued Medications Medication Sig Discontinue Reason Start Date End Da te testosterone (ANDROGEL) 1 %(50 mg/5 gram) gel Place 5 g onto the skin daily. Reorder 07/27/2010 06/18/2011 documented as of this encounter Care Teams Care Manager Relationship Specialty Start Date End Date Yossi Torres MD [address] [place] [address] [phone] PCP - General 04/17/11 03/14/16 documented as of this encounter
--- OUTSIDE RECORDS SUMMARY | 2024-06-28 13:50 | XMS_ITS | Encounter Summary ---
Author Organization [facility] Address [address] [place] [address] Care Team Providers Care Washtub Worker Helper Name Role Phone Akil Serrano MD Primary Care Provider [phone] Reason for Visit * Reason Comments Hypogonadism Encounter Details Date Type Department Care Team (Latest Contact Info) Description 06/14/2010 13:00 EST Office Visit [facility] Endocrinology - [facility] [address] [place] [phone] Wilder Zaidi, DO 62 [facility] [address] [place] [address] 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HCC-CMS) (Primary Dx) Social [...] encounter Progress Notes * Wilder Zaidi, - 06/14/2010 1501 EST This office note has been dictated. documented in this encounter Consult Notes * Wilder Zaidi DO - 2010 1652 EST DIVISION OF ENDOCRINOLOGY CONSULTATION - 06/14/[address] Serrano: I had the pleasure of seeing your patient, Mr. 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 I had the pleasure of meeting Mr. Burgos and his sister as well as his caretakers from the [facility] at the pediatric endocrine transition clinic with Dr. Edwards, on 02/21/2010. Please see that note for full details. Dr. Edwards did have a follow-up visit on 02/28/2010 with Miguel Angel's caregivers, as well as Bettina and his nurse from the [facility], Radha Conteh. Today both his caretakers and Radha Conteh are present, but sister was unable to make the visit. From a discussion with the folks who accompanied Miguel Angel today, it appears that his parents have relinquished their parental rights, although t here is still some discussion regarding who has been appointed guardian. The goal is to appoint hissisterBettina, as a guardian, with estate guardian as [...] is applied oncea day by his male bobcat driver/labor using gloves. They use of pump at [...] He currently lives with his caretakers in [place], [place], and has the services as described [...] compounded DDAVP delivered from our pharmacy at [facility]. Will speak briefly with Dr. Edwards to [...] being.We will consider further therapy once his bobcat driver/labor has been established. Plan: 1. Will address [...] - DSP Job ID: SM Doc ID: [id number] Ext Doc ID: [id number] cc: MD Akil Marsh MD Paul James Zimakas, MD documented in this encounter Plan of Treatment Upcoming Encounters Date Type Department Care Team (Late st Contact Info) Description 07/06/2024 13:40 EST Office Visit [facility] Endocrinology - [address] [address] Wilder Zaidi DO [address] [place] [phone] 09/09/2024 10:20 EST Office Visit [facility] Endocrinology - [address] [address] Day Littlejohn MD PhD [address] [place] [phone] documented as of this encounter Visit Diagnoses Diagnosis 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[facility]-CMS)- Primary Panhypopituitarism documented in this encounter Care Teams Washtub Worker Helper Relationship Specialty Start Date End Date Akil Serrano MD [address] [facility] [address] PCP - General 02/21/10 04/16/11 documented as of this encounter
--- OUTSIDE RECORDS SUMMARY | 2024-06-28 13:50 | XMS_ITS | Encounter Summary ---
Author Organization [facility] Address [address] [place] [address] Care Team Providers Care Grounds And Nursery Specialist Name Role Phone Akil Serrano MD Primary Care Provider [phone] Reason for Visit * Reason Onset Date Comments Results 07/17/2010 Encounter Details Date Type Department Care Team (Late st Contact Info) Description 07/17/2010 Telephone [facility] Endocrinology - [facility] [address] [place] [address] Wilder Zaidi DO 62 [facility] [address] [place] [address] Results Social History Tobacco Use [...] Encounter - Wilder Zaidi DO - 07/17/2010 4702 EST Recent blood work from at [facility] showed sodium normal at 139. Recheck of [...] Visit [facility] Endocrinology - [address] [address] Wilder Zaidi, [address] [place] [phone] 09/09/2024 10:20 EST Office Visit [address] [address] Day Littlejohn MD PhD [address] [place] [phone] documented as of this encounter Visit Diagnoses Not on filedocumented in this encounter Care Teams Grounds And Nursery Specialist Relationship Specialty Start Date End Date Akil Serrano MD [address] [facility] [address] [place] [address] PCP - General 02/21/10 04/16/11 documented as of this encounter
--- OUTSIDE RECORDS SUMMARY | 2024-06-28 13:50 | XMS_ITS | Encounter Summary ---
Author Organization [facility] Address [address] [place] [address] Care Team Providers Care Fuel Oil Clerk Name Role Phone Akil Serrano MD Primary Care Provider [phone] Reason for Visit * Reason Onset Date Comments Other 07/09/2010 Patient had sodi um level checked, injection of Desmpressin changed to pill form. Guardian noticed urination frequency down and bright yellow in color Encounter Details Date Type Department Care Team (Late st Contact Info) Description 07/09/2010 Telephone [facility] Endocrinology - [facility] [address] [place] [address] Wilder Zaidi DO 62 [facility] [address] [place] [address] Other (Patient had sodium level [...] Encounter - Wilder Zaidi DO - 07/10/2010 2935 EST Spoke with front man Marta via phone. Patient's guardian Marta and sister attempted to contact office yesterday. Message was not routed to this provider until this am. Patient with complicated medical history including central diabetes insipidus. Switched from SQ to oral DDAVP as a result of national shortage of SQ DDAVP. 4 days after switch front man noticed change in behavior. ER trip last night showed sodium allegedly high. Contacted on-call endocrinologists who increased oral DDAVP to 0.1 mg int he am and 0.5 mg in the evening. Advised family to increased fluid intake to 60 oz per day andto closely monitor urine output. Gave front man PAS number to contact me directly with any questions or concerns. Will check in tomorrow am 07/11/10. May obtain repeat sodium. documented in this encounter Plan of Treatment Upcoming Encounters Date Type Department Care Team (Late st Contact Info) Description 07/06/2024 13:40 EST Office Visit [facility] Endocrinology - [address] [id number] Wilder Zaidi DO [address] [place] [address] 09/09/2024 10:20 EST Office Visit [facility] Endocrinology - [address] [address] Day Littlejohn MD PhD [address] [place] [address] [place] [address] documented as of this encounter Visit Diagnoses Diagnosis 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HCC-CMS)- Primary Diabetes insipidus documented in this encounter Care Teams Fuel Oil Clerk Relationship Specialty Start Date End Date Akil Serrano MD 74 [facility] [address] [place] [address] PCP - General 02/21/10 04/16/11 documented as of this encounter
--- OUTSIDE RECORDS SUMMARY | 2024-06-28 13:50 | XMS_ITS | Encounter Summary ---
Author Organization [facility] Address [address] [place] [address] Care Team Providers Care Top And Seat Cover Fitter Name Role Phone Akil Serrano MD Primary Care Provider [phone] Reason for Visit * Reason Onset Date Comments Medications Refill 03/19/2011 Encounter Details Date Type Department Care Team (Late st Contact Info) Description 03/19/[address] [facility] Endocrinology - [address] [address] Tejal Carreno RN CDE Medications Refill Social [...] EST Office Visit [facility] Endocrinology [address] [address] Wilder Zaidi, DO 62 [facility] [address] [place] [address] 09/09/2024 10:[address] [facility] Endocrinology - [facility] [address] [place] [address] Day Littlejohn MD PhD 62 [facility] [address] [place] [address] documented as of this encounter Visit Diagnoses Not on filedocumented in this encounter Care Teams Top And Seat Cover Fitter Relationship Specialty Start Date End Date Akil Serrano MD [address] [place] [address] PCP - General 02/21/10 04/16/11 documented as of this encounter
--- OUTSIDE RECORDS SUMMARY | 2024-06-28 13:50 | XMS_ITS | Encounter Summary ---
Author Organization [facility] Address [address] [place] [address] Care Team Providers Care Traveling Inventory Associate Name Role Phone Yossi Torres MD Primary Care Provider [phone] Reason for Visit * Reason Onset Date Comments Results 07/23/2011 Encounter Details Date Type Department Care Team (Late st Contact Info) Description 07/23/2011 Telephone [facility] Endocrinology - [facility] [address] [place] [address] Wilder Zaidi DO 62 [facility] [address] [place] [address] Results Social History Tobacco Use [...] Encounter - Wilder Zaidi DO - 07/23/2011 3706 EST Left message with Bettina (patient's sister) regarding most recent sodium level that was normal at 137. Continue current treatment. documented in this encounter Plan of Treatment Upcoming Encounters Date Type Department Care Team (Late st Contact Info) Description 07/06/2024 13:40 EST Office Visit [facility] Endocrinology - [facility] [address] [place] [address] Wilder Zaidi, 62 [facility] [address] [place] [address] 09/09/2024 10:20 EST Office Visit [facility] Endocrinology - [facility] [address] [place] [address] Day Littlejohn MD PhD [address] [address] documented as of this encounter Visit Diagnoses Not on filedocumented in this encounter Care Teams Traveling Inventory Associate Relationship Specialty Start Date End Date Yossi Torres MD [address] [place] [address] [address] BU[address]O [address] [place] [phone] PCP - General 04/17/11 03/14/16 documented as of this encounter
--- OUTSIDE RECORDS SUMMARY | 2024-06-28 13:50 | XMS_ITS | Encounter Summary ---
Author Organization [facility] Address [address] [place] [address] Care Team Providers Care Health And Wellness Coach Name Role Phone Akil Serrano MD Primary Care Provider [phone] Reason for Visit * Reason Onset Date Comments Other 11/21/2010 Encounter Details Date Type Department Care Team (Late Contact Info) Description 11/21/2010 Telephone [facility] Endocrinology - [facility] [address] [place] [address] Wilder Zaidi, 62 [facility] [address] [place] [address] Other Social History Tobacco Use [...] Department Care Team (Late Contact Info) Description 07/06/2024 13:40 EST Office Visit [facility] Endocrinology - [facility] [address] [place] [address] Wilder Zaidi, 62 [facility] [address] [place] [address] 09/09/2024 10:20 EST Office Visit [facility] Endocrinology - [address] [address] Day Littlejohn MD PhD 62 [facility] [address] [place] [address] documented as of this encounter Visit Diagnoses Not on filedocumented in this encounter Care Teams Health And Wellness Coach Relationship Specialty Start Date End Date Akil Serrano MD [address] [place] [address] PCP - General 02/21/10 04/16/11 documented as of this encounter
--- OUTSIDE RECORDS SUMMARY | 2024-06-28 13:50 | XMS_ITS | Encounter Summary ---
Author Organization [facility] Address [address] [place] [address] Care Team Providers Care Computational Sciences Professor Name Role Phone Yossi Torres MD Primary Care Provider [phone] Reason for Visit * Reason Comments New Patient Visit head MRI Encounter Details Date Type Department Care Team (Latest Contact Info) Description 04/18/2011 12:00 EDT Office Visit [facility] Neurosurgery - [facility] [place] [address] [place] [address] Marvin Perez MD [address] [place] [phone] Craniopharyngioma (CMS-HCC) (HCC-CMS) (Primary Dx) Discharge [...] documented in this encounter Progress Notes * Mixing Roll Operator, Farshad - 04/19/2011 1045 EDT * Marvin Perez - 04/18/2011 1241 EDT This office note has been dictated. documented in this encounter Plan of Treatment Upcoming Encounters Date Type Department Care Team (Late st Contact Info) Description 07/06/2024 13:40 EST Office Visit [facility] Endocrinology - [address] [address] Wilder Zaidi, [address] [place] [address] [address] [place] [address] 09/09/2024 10:20 EST Office Visit [facility] Endocrinology - [address] [phone] Day Littlejohn MD PhD [address] [place] [address] [place] [address] documented as of this encounter Visit Diagnoses Diagnosis 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 04/18/2011 documented as of this encounter Care Teams Computational Sciences Professor Relationship Specialty Start Date End Date Yossi Torres MD [address] [place] [address] [address] BU[address]O [address] [place] [phone] PCP - General 04/17/11 03/14/16 documented as of this encounter
--- OUTSIDE RECORDS SUMMARY | 2024-06-28 13:50 | XMS_ITS | Encounter Summary ---
Author Organization [facility] Address [address] [place] [address] Care Team Providers Care Manager Fund Name Role Phone Yossi Torres MD Primary Care Provider [phone] Reason for Visit * Reason Onset Date Comments Medication Questions 05/15/2012 Encounter Details Date Type Department Care Team (Late st Contact Info) Description 05/15/2012 Telephone [facility] Endocrinology - [facility] [address] [place] [address] Wilder Zaidi DO 62 [facility] [address] [place] [address] Medication Questions Social History Tobacco [...] 07/06/2024 13:40 EST Office Visit [facility] Endocrinology - [address] [address] Wilder Zaidi, 62 [facility] [address] [place] [address] 09/09/2024 10:20 EST Office Visit [facility] Endocrinology - [address] [address] Day Littlejohn MD PhD [address] [address] documented as of this encounter Visit Diagnoses Not on filedocumented in this encounter Care Teams Manager Fund Relationship Specialty Start Date End Date Yossi Torres MD [address] [place] [address] [address] [place] [phone] PCP - General 04/17/11 03/14/16 documented as of this encounter
--- OUTSIDE RECORDS SUMMARY | 2024-06-28 13:50 | XMS_ITS | Encounter Summary ---
Author Organization [facility] Address [address] [place] [address] Care Team Providers Care Customs Entry Clerk Name Role Phone Akil Serrano MD Primary Care Provider [phone] Encounter Details Date Type Department Care Team (Latest Contact Info) Description 03/19/2011 Orders Only [facility] Endocrinology - [facility] [address] [place] [address] Tejal Carreno RN CDE 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[facility]-CMS) (Primary Dx) Social History Tobacco Use Types [...] Office Visit [facility] Endocrinology [facility] [address] [place] [address] Wilder Zaidi, 62 [facility] [address] [place] [address] 09/09/2024 10:20 EST Office Visit [address] [address] Day Littlejohn MD PhD [address] [facility] [address] [place] [address] documented as of this encounter Visit Diagnoses Diagnosis 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HCC-CMS)- Primary Panhypopituitarism documented in this encounter Care Teams Customs Entry Clerk Relationship Specialty Start Date End Date Akil Serrano MD [address] [facility] [address] [place] [address] PCP - General 02/21/10 04/16/11 documented as of this encounter
--- OUTSIDE RECORDS SUMMARY | 2024-06-28 13:50 | XMS_ITS | Encounter Summary ---
Author Organization [facility] Address [address] [place] [address] Care Team Providers Care Manager Android Name Role Phone Yossi Torres MD Primary Care Provider [phone] Reason for Visit * Reason Onset Date Comments Abnormal Lab 01/22/2012 Encounter Details Date Type Department Care Team (Late st Contact Info) Description 01/22/2012 Telephone [facility] Endocrinology - [facility] [address] [place] [address] Wilder Zaidi DO 62 [facility] [address] [place] [address] Abnormal Lab Social History Tobacco [...] Info) Description 07/06/2024 13:40 EST Office Visit [facility] Endocrinology - [address] [address] Wilder Zaidi DO [address] [place] [address] 09/09/2024 10:20 EST Office Visit [facility] Endocrinology - [address] [address] Day Littlejohn MD PhD [address] [place] [address] documented as of this encounter Visit Diagnoses Not on filedocumented in this encounter Care Teams Manager Android Relationship Specialty Start Date End Date Yossi Torres MD [address] [place] [address] [phone] PCP - General 04/17/11 03/14/16 documented as of this encounter
--- OUTSIDE RECORDS SUMMARY | 2024-06-28 13:50 | XMS_ITS | Encounter Summary ---
Author Organization [facility] Address [address] [place] [address] Care Team Providers Care Motor Vehicle Representative Name Role Phone Akil Serrano MD Primary Care Provider Encounter Details Date Type Department Care Team (Late st Contact Info) Description 05/23/2010 Abstract [facility] Endocrinology - [address] [id number] Wilder Zaidi DO [address] [place] [address] Social History Tobacco Use Types Packs/Day [...] [facility] Endocrinology [address] [address] Wilder Zaidi DO [address] [place] [address] 09/09/2024 10:20 EST Office Visit [facility] Endocrinology [address] [address] Day Littlejohn MD PhD [address] [place] [address] [place] [address] documented as of this encounter Visit [...] may reflect changes made after this encounter. quetiapine (SEROQUEL) 300 mg tablet Take 200 mg by mouth at bedtime. 08/24/2010 Cholecalciferol, Vitamin D3, 400 unit Tab Take 2.5 Tablets by mouth daily. 08/24/2010 hydrocortisone sod succ, PF, (SOLU-CORTEF, PF,) 100 mg/2 mL SolR injection Inject 50 mg into the vein every 6 hours. 0 testosterone (ANDROGEL) 1 % (25 mg/2.5 g) GlPk Apply topically daily. 1 potassium chloride SA (K-DUR, KLOR-CON M10) 10 mEq tablet Take 10 mEq by mouth daily. 05/23/2010 0 potassium chloride (KLOR-CON) 20 mEq packet Take 20 mEq by mouth. 1 1/2 tabs daily 0 ranitidine (ZANTAC) 150 mg tablet Take 150 mg by mouth 2 times daily. 0 zonisamide (ZONEGRAN) 25 mg capsule Take 25 mg by mouth 3 times daily. 05/23/2010 0 zonisamide (ZONEGRAN) 100 mg capsule Take 100 mg by mouth daily. 0 modafinil (PROVIGIL) 200 mg tablet Take 200 mg by mouth daily. 1 levothyroxine (SYNTHROID) 200 mcg tablet Take 200 mcg by mouth daily. 4 hydrocortisone (CORTEF) 10 mg tablet Take 10 mg by mouth 2 times daily. 0 added in this encounter Care Teams Motor Vehicle Representative Relationship Specialty Start Date End Date Akil Serrano MD 74 [facility] [address] [place] [address] PCP - General 02/21/10 04/16/11 documented as of this encounter
--- OUTSIDE RECORDS SUMMARY | 2024-06-28 13:50 | XMS_ITS | Encounter Summary ---
Author Organization [facility] Address [address] [place] [address] Care Team Providers Care Animal Attendant Name Role Phone Akil Serrano MD Primary Care Provider [phone] Reason for Visit * Reason Onset Date Comments Results 11/30/2010 his sodium was 1 40 (down from 151 the week before) from 100 oz water for several dys (4 days?) I am having them go back to 60 oz today and recheck Friday Encounter Details Date Type Department Care Team (Late st Contact Info) Description 11/30/2010 Telephone [facility] Endocrinology - [address] [address] Ramon Lucero MD [address] [place] [address], [facility] [address] [place] [address] Results (his sodium was 140 [...] Telephone Encounter - Ramon Lucero - 11/30/2010 1865 EDT Sodium came down to 140 on 100 oz of water daily. I spoke with his sister Bettina and told her to godown to 80 oz on , 11/29. Then today, 11/30 I got nervous and asked the career education teacher to go downto 60 oz again and recheck Friday. She understands. He's behaving normally and stools are more formed (had some loose stools). documented in this encounter Plan of Treatment Upcoming Encounters Date Type Department Care Team (Late st Contact Info) Description 07/06/2024 13:40 EST Office Visit [facility] Endocrinology - [address] [address] Wilder Zaidi, [address] [place] [address] [place] [address] 09/09/2024 10:20 EST Office Visit [facility] Endocrinology - [address] [address] Day Littlejohn MD PhD [address] [place] [address] [place] [address] documented as of this encounter Visit Diagnoses Not on filedocumented in this encounter Care Teams Animal Attendant Relationship Specialty Start Date End Date Akil Serrano MD 74 [facility] [address] [place] [address] PCP - General 02/21/10 04/16/11 documented as of this encounter
--- OUTSIDE RECORDS SUMMARY | 2024-06-28 13:50 | XMS_ITS | Encounter Summary ---
Author Organization [facility] Address [address] [place] [address] Care Team Providers Care Public Health Specialist Name Role Phone Akil Serrano MD Primary Care Provider [phone] Reason for Visit * Reason Onset Date Comments Medications Refill 07/26/2010 PATIENT OUT O F MED Encounter Details Date Type Department Care Team (Late st Contact Info) Description 07/26/[address] [address] Wilder Zaidi, 62 [facility] [address] [place] [address] Medications Refill (PATIENT OUT OF [...] Info) Description 07/06/2024 13:40 EST Office Visit [address] [place] [address] Wilder Zaidi, DO 62 [facility] [address] [place] [address] 09/09/2024 10:20 EST Office Visit [facility] Endocrinology - [facility] [address] [place] [address] Day Littlejohn MD PhD [address] [facility] [address] [place] [address] documented as of this encounter Visit Diagnoses Not on filedocumented in this encounter Discontinued Medications Medication Sig Discontinue Reason Start Date End Da te testosterone (ANDROGEL) 1 % (25 mg/2.5 g) GlPk Apply topically daily. 07/27/2010 documented as of this encounter Care Teams Public Health Specialist Relationship Specialty Start Date End Date Akil Serrano MD [address] [place] [address] PCP - General 02/21/10 04/16/11 documented as of this encounter
--- OUTSIDE RECORDS SUMMARY | 2024-06-28 13:50 | XMS_ITS | Encounter Summary ---
Author Organization [facility] Address [address] [place] [address] Care Team Providers Care Cooler Room Worker Name Role Phone Yossi Torres MD Primary Care Provider [phone] Reason for Visit * Reason Comments Pituitary Abnormality f/u Encounter Details Date Type Department Care Team (Latest Contact Info) Description 05/03/2011 11:20 EDT Office Visit [facility] Endocrinology - [facility] [address] [place] [address] Wilder Zaidi, [address] 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 Radha Conteh is here from [facility] as well as both his caretakers. I received a letter from Dr Rondon on 03/26/2011 where he expressed concern that the caregivers had told him that there was some increase in urine volume and behavioral issues, that Miguel Angel's head of talent management did not contact my office with these [...] and symptoms of hyponatremia today with the head of talent management, nurse and patient's sister, although the subtle [...] DO - Job ID: SM Doc ID: [id number] Ext Doc ID: [id number] cc: Yossi Torres MD * Wilder Zaidi DO - 05/09/2011 0941 EDT This office note has been dictated. documented in this encounter Plan of Treatment Upcoming Encounters Date Type Department Care Team (Late st Contact Info) Description 07/06/2024 13:40 EST Office Visit [facility] Endocrinology - [address] [address] Wilder Zaidi DO [address] [place] [address] 09/09/2024 10:20 EST Office Visit [facility] Endocrinology [address] [address] Day Littlejohn MD PhD [address] [place] [phone] documented as of this encounter Visit Diagnoses Diagnosis 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HCC-CMS) Diabetes insipidus 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HCC-CMS) Panhypopituitarism documented in this encounter Discontinued Medications Medication Sig Discontinue Reason Start Date End Da te desmopressin (DDAVP) 0.1 mg tablet TAKE 1/2 TABLET TWO TIMES A DAY Reorder 03/18/2011 05/03/2011 documented as of this encounter Care Teams Cooler Room Worker Relationship Specialty Start Date End Date Yossi Torres MD [address] [place] [address] [address] [place] [phone] PCP - General 04/17/11 03/14/16 documented as of this encounter
--- OUTSIDE RECORDS SUMMARY | 2024-06-28 13:50 | XMS_ITS | Encounter Summary ---
Author Organization [facility] Address [address] [place] [address] Care Team Providers Care Director Of Diversity And Inclusion Name Role Phone Corin Skinner MD Primary Care Provider Encounter Details Date Type Department Care Team (Latest Contact Info) Description 04/13/2009 11:12 EDT - 04/13/2009 23:59 EDT Hospital Encounter [facility] [address] [place] [address] Maxine Felix, BIKE TECHNICIAN Discharge Disposition: Home or Self Care Social History Tobacco Use Types Packs/Day Years Used Date Smoking Tobacco: Never Assessed Sex and Gender Information Value Date Recorded Sex Assigned at Not on file Legal Sex Male 18:35 EST Gender Identity Not on file Sexual Orientation Not on file documented as of this encounter Discharge Disposition Disposition Code Departure Means Destination Home or Self Intermediate documented in this encounter Plan of Treatment Upcoming Encounters Date Type Department Care Team (Late st Contact Info) Description 07/06/2024 13:40 EST Office Visit [facility] Endocrinology - [facility] [address] [place], [place] [id number] Wilder Zaidi, 62 [facility] [address] [place] [address] 09/09/2024 10:20 EST Office Visit [facility] Endocrinology - [facility] [address] [place], [place] [phone] aDy Littlejohn MD PhD 62 [employer] [address] [place] [phone] documented as of this encounter Procedures Procedure Name Priority Date/Time Associated Diagnosis Comments OSMOLALITY Routine 04/13/2009 11:41 EDT T4 FREE Routine 04/13/2009 11:41 EDT CORTISOL Routine 04/13/2009 11:41 EDT BASIC METABOLIC PANEL (BMP) Routine 04/13/2009 11:41 EDT documented in this encounter Results * (ABNORMAL) BASIC METABOLIC PANEL (04/13/2009 11:41 EDT) Pathologist [facility] Sodium 132(L) 136 - 145 mEq/L [facility] [...] (specimen) 04/13/2009 11:41 EDT 04/13/2009 11:43 EDT us Maxine Felix BIKE TECHNICIAN CHEMISTRY & BLOOD GAS OR DERABLES Final Result [facility] [address] [place] [address] * T4 FREE (04/13/2009 11:41 EDT) Free T4 1.6 0.8 - 1.8 ng/dL [facility] Blood specimen (specimen) 04/13/2009 11:41 EDT 04/13/2009 11:43 EDT Maxine Felix APRN CHEMISTRY & BLOOD GAS OR DERABLES Final Result Performing Organization Address [facility] Co de Phone Number [facility] [address] [place] [address] * (ABNORMAL) OSMOLALITY (04/13/2009 11:41 EDT) Osmolality Cintia 273(L) 280 - 300 MOS/KG [facility] Blood specimen (specimen) 04/13/2009 11:41 EDT 04/13/2009 11:43 EDT Maxine Torito Isidro SANTANA CHEMISTRY & BLOOD GAS OR DERABLES Final Result Performing Organization Address [facility] de Phone Number [facility] [address] [place] [address] * CORTISOL (04/13/2009 11:41 EDT) Pathologist [facility] Cortisol 25 ug/dl [facility] Comment: 7-9a.m.=4.3-22.4 3-5p.m.=3.1-16.7 Blood specimen (specimen) 04/13/2009 11:41 EDT 04/13/2009 11:43 EDT Maxine Felix APRN CHEMISTRY & BLOOD GAS OR DERABLES Final Result Performing Organization Address [facility] de Phone Number [facility] [address] [place] [address] documented in this encounter Visit Diagnoses Not on filedocumented in this encounter Care Teams Director Of Diversity And Inclusion Relationship Specialty Start Date End Date Corin Skinner MD [address] [place] [phone] PCP - General 10/24/08 08/21/09 documented as of this encounter
--- OUTSIDE RECORDS SUMMARY | 2024-06-28 13:50 | XMS_ITS | Encounter Summary ---
Author Organization [facility] Address [address] [place] [address] Care Team Providers Care Critical Care Unit Manager Name Role Phone Akil Serrano MD Primary Care Provider Encounter Details Date Type Department Care Team (Late st Contact Info) Description 04/10/2010 Results Only [facility] [phone] Akil Serrano MD [address] [place] [address] [address] [place] [address] Social History Tobacco Use Types Packs/Day Years [...] Info) Description 07/06/2024 13:40 EST Office Visit [facility] Endocrinology - [facility] [address] [place], [place] [phone] Wilder Zaidi, 62 [facility] [address] [place] [address] 09/09/2024 10:20 EST Office Visit [facility] Endocrinology [facility] [address] [place] [address] Day Littlejohn MD PhD 62 [facility] [address] [place] [address] documented as of this encounter Visit Diagnoses Not on filedocumented in this encounter Care Teams Critical Care Unit Manager Relationship Specialty Start Date End Date Akil Serrano MD 74 [facility] [place] [address] PCP - General 02/21/10 04/16/11 documented as of this encounter
--- OUTSIDE RECORDS SUMMARY | 2024-06-28 13:50 | XMS_ITS | Encounter Summary ---
Author Organization [facility] Address [address] [place] [address] Care Team Providers Care Photo Specialist Name Role Phone Akil Serrano MD Primary Care Provider [phone] Yossi Torres MD Primary Care Provider [phone] Emilee Cody MD Primary Care Provider + Ren Vaz MD Primary Care Provider [phone] Reason for Visit * Reason Comments Other Encounter Details Date Type Department Care Team (Late st Contact Info) Description 03/18/2011 Refill [facility] Endocrinology - [facility] [address] [place] [address] Wilder Zaidi 62 [facility] [address] [place] [address] Other Social History Tobacco Use [...] Date desmopressin (DDAVP) 0.1 mg tablet TAKE 1/2 [...] Info) Description 07/06/2024 13:40 EST Office Visit [facility] Endocrinology - [address] [address] Wilder Zaidi, 62 [facility] [address] [place] [address] 09/09/2024 10:20 EST Office Visit [facility] Endocrinology - [address] [address] Day Littlejohn MD PhD [address] [address] documented as of this encounter Visit Diagnoses Not on filedocumented in this encounter Discontinued Medications Medication Sig Discontinue Reason Start Date End Da te desmopressin (DDAVP) 0.1 mg tabletIndications: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HCC-CMS) Take by mouth. Take one-half tab by mouth twice a day. 06/19/2010 03/19/2011 documented as of this encounter Care Teams Photo Specialist Relationship Specialty Start Date End Date Akil Serrano MD 74 [facility] [address] [place], [place] [address] PCP - General 02/21/10 04/16/11 Yossi Torres MD [address] [place] [address] [address] [place] [phone] PCP - General 04/17/11 03/14/16 Emilee Cody MD [address] [place] [address] PCP - General 03/15/16 09/29/18 Ren Vaz MD [address] [place] [address] [place] [address] PCP - General 09/30/18 documented as of this encounter
--- OUTSIDE RECORDS SUMMARY | 2024-06-28 13:50 | XMS_ITS | Encounter Summary ---
Author Organization [facility] Address [address] [place] [address] Care Team Providers Care Order Administrator Name Role Phone Corin Skinner MD Primary Care Provider Encounter Details Date Type Department Care Team (Late st Contact Info) Description 12/07/2008 11:45 EDT - 12/07/2008 23:59 EDT Hospital Encounter [facility] [address] [place] [address] [facility] [address] [place] [phone] Discharge Disposition: Home or Self Care Social History Tobacco Use Types Packs/Day Years Used Date Smoking Tobacco: Never Assessed Sex and Gender Information Value Date Recorded Sex Assigned at Not on file Legal Sex Male 18:35 EST Gender Identity Not on file Sexual Orientation Not on file documented as of this encounter Discharge Disposition Disposition Code Departure Means Destination Home or Self Alf documented in this encounter Plan of Treatment Upcoming Encounters Date Type Department Care Team (Late st Contact Info) Description 07/06/2024 13:40 EST Office Visit [facility] Endocrinology - [facility] [address] [place] [address] Wilder Zaidi, DO 62 [facility] [address] [place] [phone] 09/09/2024 10:20 EST Office Visit [facility] Endocrinology - [facility] [address] [place] [address] Day Littlejohn MD PhD 62 [facility] [address] [place] [address] documented as of this encounter Procedures Procedure Name Priority Date/Time Associated Diagnosis Comments T4 FREE Routine 12/07/2008 12:01 EDT BASIC METABOLIC PANEL (BMP) Routine 12/07/2008 12:01 EDT documented in this encounter Results * T4 FREE (12/07/2008 12:01 EDT) Free T4 1.6 0.8 - 1.8 ng/dL [facility] Blood specimen (specimen) 12/07/2008 12:01 EDT 12/07/2008 12:03 EDT Skyler Edwards [facility] CHEMISTRY & BL OOD GAS ORDERABLES Final Result [facility] [address] [place] [address] * (ABNORMAL) BASIC METABOLIC PANEL (12/07/2008 12:01 [...] mg/dl [facility] Fasting? No [facility] Blood specimen (specimen) 12/07/2008 12:01 EDT 12/07/2008 12:03 EDT Skyler Edwards [facility] CHEMISTRY & BL OOD GAS ORDERABLES Final Result Performing Organization Address City/State/[facility] Co de Phone Number [facility] [address] [place] [address] documented in this encounter Visit Diagnoses Not on filedocumented in this encounter Care Teams Order Administrator Relationship Specialty Start Date End Date Corin Skinner MD [address] [place] [phone] PCP - General 10/24/08 08/21/09 documented as of this encounter
--- OUTSIDE RECORDS SUMMARY | 2024-06-28 13:50 | XMS_ITS | Encounter Summary ---
Author Organization [facility] Address [address] [place] [address] Care Team Providers Care Tax Advisor Name Role Phone Akil Serrano MD Primary Care Provider [phone] Encounter Details Date Type Department Care Team (Late st Contact Info) Description 02/21/2010 Results Only [facility] - [facility] [address] [place], [place] [address] [facility] [address] [place] [phone] Social History Tobacco Use Types Packs/Day Years [...] Info) Description 07/06/2024 13:40 EST Office Visit [facility] Endocrinology - [facility] [address] [place] [address] Wilder Zaidi DO 62 [facility] [address] [place] [address] 09/09/2024 10:20 EST Office Visit [facility] Endocrinology - [facility] [address] [place] [address] Day Littlejohn MD PhD [address] [employer] [address] [place] [phone] documented as of this encounter Procedures [...] Protein 7.3 6.5 - 8.3 g/dl [facility] Creatinine 0.81 0.7 - 1.5 mg/dl [...] 12:28 EDT 02/21/2010 12:30 EDT Skyler Edwards [facility] CHEMISTRY & BL OOD GAS ORDERABLES Final Result Performing Organization Address [facility]/ZIP Co de Phone Number [facility] [address] [place] [address] * (ABNORMAL) TESTOSTERONE (02/21/2010 12:28 EDT) Testosterone, Total <10(L) 241 - 827 ng/dL [facility] Comment:Sample retested, res ult confirmed Blood specimen (specimen) 02/21/2010 12:28 EDT 02/21/2010 12:30 EDT Skyler Edwards [facility] CHEMISTRY & BL OOD GAS ORDERABLES Final Result Performing Organization Address [facility] de Phone Number [facility] [address] [place] [address] * T4 FREE (02/21/2010 12:28 EDT) Free T4 1.3 0.8 - 1.8 ng/dL [facility] Blood specimen (specimen) 02/21/2010 12:28 EDT 02/21/2010 12:30 EDT Skyler Edwards [facility] CHEMISTRY & BL OOD GAS ORDERABLES Final Result Performing Organization Address [facility] de Phone Number [facility] [address] [place] [address] documented in this encounter Visit Diagnoses Not on filedocumented in this encounter Care Teams Tax Advisor Relationship Specialty Start Date End Date Akil Serrano MD 74 [facility],[address] [place] [address] PCP - General 02/21/10 04/16/11 documented as of this encounter
--- OUTSIDE RECORDS SUMMARY | 2024-06-28 13:50 | XMS_ITS | Encounter Summary ---
Author Organization [facility] Address [address] [place] [address] Care Team Providers Care Valet Runner Name Role Phone Yossi Torres MD Primary Care Provider [phone] Reason for Visit * Reason Onset Date Comments Results 12/25/2011 Encounter Details Date Type Department Care Team (Late st Contact Info) Description 12/25/2011 Telephone [facility] Endocrinology - [facility] [address] [place] [address] Wilder Zaidi, 62 [facility] [address] [place] [address] Results Social History Tobacco Use [...] Encounter - Marta Rice RN - 12/25/2011 6729 EDT Phone call to Miguel Angel's home (left message for caregiver to call back) Phone call from Bettina (his guardian)--informed her of Dr. Zaidi's message below. * Telephone Encounter - Wilder Zaidi DO - 12/25/2011 1359 EDT Please contact Miguel Angel's caretakers by phone. Labs from [facility] dated 12/21/11 show normal sodium at 143. Kidney and thyroid function tests were normal. documented in this encounter Plan of Treatment Upcoming Encounters Date Type Department Care Team (Late st Contact Info) Description 07/06/2024 13:40 EST Office Visit [facility] Endocrinology - [address] [address] Wilder Zaidi, [address] [place] [phone] 09/09/2024 10:20 EST Office Visit [facility] Endocrinology - [address] [phone] Day Littlejohn MD PhD [address] [phone] documented as of this encounter Visit Diagnoses Not on filedocumented in this encounter Care Teams Valet Runner Relationship Specialty Start Date End Date Yossi Torres MD [address] [place] [address] [address] [place] [phone] PCP - General 04/17/11 03/14/16 documented as of this encounter
--- OUTSIDE RECORDS SUMMARY | 2024-06-28 13:50 | XMS_ITS | Encounter Summary ---
Author Organization [facility] Address [address] [place] [address] Care Team Providers Care Qual Research Manager Name Role Phone Akil Serrano MD Primary Care Provider [phone] Reason for Visit * Reason Onset Date Comments Appointment Related 04/12/2011 Encounter Details Date Type Department Care Team (Late st Contact Info) Description 04/12/2011 Telephone [facility] Endocrinology - [facility] [address] [place] [address] Wilder Zaidi DO 62 [facility] [address] [place] [address] Appointment Related Social History Tobacco [...] Office Visit [facility] Endocrinology - [address] [phone] Wilder Zaidi, [address] [place] [phone] 09/09/2024 10:20 EST Office Visit [facility] Endocrinology - [address] [address] Day Littlejohn MD PhD [address] [place] [phone] documented as of this encounter Visit Diagnoses Not on filedocumented in this encounter Care Teams Qual Research Manager Relationship Specialty Start Date End Date Akil Serrano MD 74 [facility],[address] [place] [address] PCP - General 02/21/10 04/16/11 documented as of this encounter
--- OUTSIDE RECORDS SUMMARY | 2024-06-28 13:50 | XMS_ITS | Encounter Summary ---
Author Organization [facility] Address [address] [place] [address] Care Team Providers Care Mailhouse Operator Name Role Phone Yossi Torres MD Primary Care Provider [phone] Reason for Visit * Reason Onset Date Comments Other 06/23/2012 sodium 134 Encounter Details Date Type Department Care Team (Late st Contact Info) Description 06/23/2012 Telephone [facility] Endocrinology - [facility] [address] [place] [address] Wilder Zaidi DO 62 [facility] [address] [place] [address] Other (sodium 134) Social History [...] [facility] Endocrinology - [address] [phone] Wilder Zaidi DO [address] [place] [phone] 09/09/2024 10:20 EST Office Visit [facility] Endocrinology - [address] [address] Day Littlejohn MD PhD [address] [place] [phone] documented as of this encounter Visit Diagnoses Not on filedocumented in this encounter Care Teams Mailhouse Operator Relationship Specialty Start Date End Date Yossi Torres MD [address] [place] [address] [address] [place] [phone] PCP - General 04/17/11 03/14/16 documented as of this encounter
--- OUTSIDE RECORDS SUMMARY | 2024-06-28 13:50 | XMS_ITS | Encounter Summary ---
Author Organization [facility] Address [address] [place] [address] Care Team Providers Care Cleaner Industrial Name Role Phone Akil Serrano MD Primary Care Provider [phone] Reason for Visit * Reason Onset Date Comments Diabetes 07/13/[address] Trena Zaidi know [facility] patient's sodium level checked today at [facility], at 139. Encounter Details Date Type Department Care Team (Late st Contact Info) Description 07/13/2010 Telephone [facility] Endocrinology - [facility] [address] [place] [address] Wilder Zaidi, 62 [facility] [address] [place] [address] Diabetes (Called to let Dr. Zaidi know sweetie patient's sodium level checked today at [facility], at 139. ) Social History Tobacco [...] 07/06/2024 13:40 EST Office Visit [facility] Endocrinology - [address] [address] Wilder Zaidi, 62 [facility] [address] [place] [address] 09/09/2024 10:20 EST Office Visit [facility] Endocrinology - [address] [address] Day Littlejohn MD PhD [address] [place] [address] [place] [phone] documented as of this encounter Visit Diagnoses Not on filedocumented in this encounter Care Teams Cleaner Industrial Relationship Specialty Start Date End Date Akil Serrano MD [address] [place] [address] PCP - General 02/21/10 04/16/11 documented as of this encounter
--- OUTSIDE RECORDS SUMMARY | 2024-06-28 13:50 | XMS_ITS | Encounter Summary ---
Author Organization [facility] Address [address] [place] [address] Care Team Providers Care Case Resource Manager Name Role Phone Akil Serrano MD Primary Care Provider [phone] Reason for Visit * Reason Onset Date Comments Results 02/07/2011 Encounter Details Date Type Department Care Team (Late st Contact Info) Description 02/07/2011 Telephone [facility] Endocrinology - [facility] [address] [place] [address] Wilder Zaidi DO 62 [facility] [address] [place] [address] Results Social History Tobacco Use [...] 07/06/2024 13:40 EST Office Visit [facility] Endocrinology - [facility] [address] [place] [address] Wilder Zaidi, 62 [facility] [address] [place] [phone] 09/09/2024 10:20 EST Office Visit [facility] Endocrinology - [address] [address] Day Littlejohn MD PhD [address] [phone] documented as of this encounter Visit Diagnoses Not on filedocumented in this encounter Care Teams Case Resource Manager Relationship Specialty Start Date End Date Akil Serrano MD [address] [place] [address] PCP - General 02/21/10 04/16/11 documented as of this encounter
--- OUTSIDE RECORDS SUMMARY | 2024-06-28 13:50 | XMS_ITS | Encounter Summary ---
Author Organization [facility] Address [address] [place] [address] Care Team Providers Care Mushroom Cutter Name Role Phone Yossi Torres MD Primary Care Provider [phone] Reason for Visit * Reason Onset Date Comments Results 09/18/2011 Encounter Details Date Type Department Care Team (Late st Contact Info) Description 09/18/2011 Telephone [facility] Endocrinology - [facility] [address] [place] [address] Wilder Zaidi, 62 [facility] [address] [place] [address] Results Social History Tobacco Use [...] Encounter - Marta Rice RN - 09/18/2011 1337 EDT Phone call to Miguel Angel Burgos's [...] Office Visit [facility] Endocrinology - [address] [address] Wilder Zaidi DO [address] [place] [phone] 09/09/2024 10:20 EST Office Visit [facility] Endocrinology - [address] [address] Day Littlejohn MD PhD [address] [place] [phone] documented as of this encounter Visit Diagnoses Not on filedocumented in this encounter Care Teams Mushroom Cutter Relationship Specialty Start Date End Date Yossi Torres MD [address] [place] [address] [address] [place] [phone] PCP - General 04/17/11 03/14/16 documented as of this encounter
--- OUTSIDE RECORDS SUMMARY | 2024-06-28 13:50 | XMS_ITS | Encounter Summary ---
Author Organization [facility] Address [address] [place] [address] Care Team Providers Care Senior Naval Parachutist Name Role Phone Akil Serrano MD Primary Care Provider [phone] Reason for Visit * Reason Onset Date Comments Medications Refill 06/12/2010 Encounter Details Date Type Department Care Team (Late st Contact Info) Description 06/12/2010 Refill [facility] - [facility] [address] [place], [place] [address] [facility] [address] [place] [address] Medications Refill Social History Tobacco [...] 06/13/2010 0913 EST Spoke to Radha at [facility]. Miguel Angel has enough DDAVP until next week and sees Dr. Zaidi, adult endo, 06/14/10. Advised her that Dr. Zaidi's office will prescribe medication for the future; he just needs to know what pharmacy to use. * Telephone Encounter - [place] Cool - 06/12/2010 1600 EST Radha is calling from [facility] [employer] (her EXT is [phone]). Pt's medication can not befilled in the [...] Info) Description 07/06/2024 13:40 EST Office Visit [facility] Endocrinology - [address] [address] Wilder Zaidi, [address] [place] [address] [place] [phone] 09/09/2024 10:20 EST Office Visit [facility] Endocrinology - [address] [address] Day Littlejohn MD PhD [address] [place] [phone] documented as of this encounter Visit Diagnoses Not on filedocumented in this encounter Care Teams Senior Naval Parachutist Relationship Specialty Start Date End Date Akil Serrano MD 74 [facility] [address] [place] [address] PCP - General 02/21/10 04/16/11 documented as of this encounter
--- OUTSIDE RECORDS SUMMARY | 2024-06-28 13:50 | XMS_ITS | Encounter Summary ---
Author Organization [facility] Address [address] [place] [address] Care Team Providers Care Wrapper Stripper Name Role Phone Yossi Torres MD Primary Care Provider [phone] Reason for Visit * Reason Onset Date Comments Results 06/01/2011 Results 06/03/2011 Encounter Details Date Type Department Care Team (Late st Contact Info) Description 06/01/2011 Telephone [facility] Endocrinology - [facility] [address] [place] [address] Wilder Zaidi DO 62 [facility] [address] [place] [address] Results; Results Social History Tobacco [...] [facility] Endocr[facility]ology - [address] [phone] Wilder Zaidi DO [address] [place] [address] 09/09/2024 10:20 EST Office Visit [facility] Endocrinology - [address] [address] Day Littlejohn MD PhD [address] [place] [address] documented as of this encounter Visit Diagnoses Not on filedocumented in this encounter Care Teams Wrapper Stripper Relationship Specialty Start Date End Date Yossi Torres MD [address] [place] [address] [address] [place] [phone] PCP - General 04/17/11 03/14/16 documented as of this encounter
--- OUTSIDE RECORDS SUMMARY | 2024-06-28 13:50 | XMS_ITS | Encounter Summary ---
Author Organization [facility] Address [address] [place] [address] Care Team Providers Care Rn Clinical Name Role Phone Yossi Torres MD Primary Care Provider [phone] Reason for Visit * Reason Onset Date Comments Results 05/09/2011 Encounter Details Date Type Department Care Team (Late st Contact Info) Description 05/09/2011 Telephone [facility] Endocrinology - [facility] [address] [place] [address] Wilder Zaidi DO 62 [facility] [address] [place] [address] Results Social History Tobacco Use [...] Visit [facility] Endocrinology - [facility] [address] [place] [address] Wilder Zaidi, 62 [facility] [address] [place] [address] 09/09/2024 10:20 EST Office Visit [facility] Endocrinology - [facility] [address] [place] [address] Day Littlejohn MD PhD 62 [facility] [address] [place] [address] documented as of this encounter Visit Diagnoses Not on filedocumented in this encounter Care Teams Rn Clinical Relationship Specialty Start Date End Date Yossi Torres MD [address] [place] [address] DR BU[address]O [address] [place] [phone] PCP - General 04/17/11 03/14/16 documented as of this encounter
--- OUTSIDE RECORDS SUMMARY | 2024-06-28 13:50 | XMS_ITS | Encounter Summary ---
Author Organization [facility] Address [address] [place] [address] Care Team Providers Care Dry Wall Installations Mechanic Name Role Phone Akil Serrano MD Primary Care Provider Reason for Visit * Reason Onset Date Comments Labs Only 07/17/2010 Encounter Details Date Type Department Care Team (Late st Contact Info) Description 07/17/2010 Orders Only [facility] Endocrinology - [facility] [address] [place] [address] Wilder Zaidi DO 62 [facility] [address] [place] [address] Primary central diabetes insipidus [...] Info) Description 07/06/2024 13:40 EST Office Visit [facility] Endocrinology - [facility] [address] [place] [address] Wilder Zaidi DO 62 [facility] [address] [place] [address] 09/09/2024 10:20 EST Office Visit [facility] Endocrinology - [facility] [address] [place] [address] Day Littlejohn MD PhD 62 [facility] [address] [place] [address] documented as of this encounter Visit Diagnoses Diagnosis 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
--- OUTSIDE RECORDS SUMMARY | 2024-06-28 13:50 | XMS_ITS | Encounter Summary ---
Author Organization [facility] Address [address] [place] [address] Care Team Providers Care Domestic Housekeeper Name Role Phone Yossi Torres MD Primary Care Provider [phone] Reason for Visit * Reason Onset Date Comments Results 04/21/2012 Follow-up 04/21/2012 Encounter Details Date Type Department Care Team (Late st Contact Info) Description 04/21/2012 Telephone [facility] Endocrinology - [facility] [address] [place] [address] Wilder Zaidi, 62 [facility] [address] [place] [address] Results; Follow-up Social History Tobacco [...] phone. I have review laboratory results from [facility] dated 04/20/12. Advise that solidum level was normal at 128. Continue current doses. documented in this encounter Plan of Treatment Upcoming Encounters Date Type Department Care Team (Late st Contact Info) Description 07/06/2024 13:40 EST Office Visit [facility] Endocrinology - [address] [phone] Wilder Zaidi, [address] [place] [address] 09/09/2024 10:20 EST Office Visit [facility] Endocrinology - [address] [address] Day Littlejohn MD PhD [address] [place] [address] documented as of this encounter Visit Diagnoses Not on filedocumented in this encounter Care Teams Domestic Housekeeper Relationship Specialty Start Date End Date Yossi Torres MD [address] [place] [address] DR BUITRAGO [address] [place] [phone] PCP - General 04/17/11 03/14/16 documented as of this encounter
--- OUTSIDE RECORDS SUMMARY | 2024-06-28 13:50 | XMS_ITS | Encounter Summary ---
Author Organization [facility] Address [address] [place] [address] Care Team Providers Care Industrial Cleaner Name Role Phone Akil Serrano MD Primary Care Provider Encounter Details Date Type Department Care Team (Late st Contact Info) Description 07/03/2010 Results Only Imaging [facility]- PRISM [phone] Akil Serrano MD [address] [place] [address],[facility] [address] [place], [place] [address] Social History Tobacco Use Types Packs/Day Years [...] Description 07/06/2024 13:40 EST Office Visit [facility] Endocrinology - [facility] [address] [place] [address] Wilder Zaidi DO 62 [facility] [address] [place] [address] 09/09/2024 10:20 EST Office Visit [facility] Endocrinology - [facility] [address] [place] [address] Day Littlejohn MD PhD [address] [place] [address] documented as of this encounter Visit Diagnoses Not on filedocumented in this encounter Care Teams Industrial Cleaner Relationship Specialty Start Date End Date Akil Serrano MD 74 [facility] [place], [place] [address] PCP - General 02/21/10 04/16/11 documented as of this encounter
--- OUTSIDE RECORDS SUMMARY | 2024-06-28 13:50 | XMS_ITS | Encounter Summary ---
Author Organization [facility] Address [address] [place] [address] Care Team Providers Care Xerox Machine Mechanic Name Role Phone Yossi Torres MD Primary Care Provider [phone] Reason for Visit * Reason Comments Other Encounter Details Date Type Department Care Team (Late st Contact Info) Description 12/25/2011 Refill [facility] Endocrinology - [facility] [address] [place] [address] Wilder Zaidi, 62 [facility] [address] [place] [address] Other Social History Tobacco Use [...] Date ANDROGEL 1 %(50 mg/5 gram) gel APPLY 5GM (1 PACKET) ONCE DAILY TO SKIN 30 Packet 5 12/25/2011 06/28/2012 documented in this encounter Miscellaneous Notes * Telephone Encounter - Karen Tellez - 12/25/2011 6663 EDT Testosterone called in to [facility] in [place] documented in this encounter Plan of Treatment Upcoming Encounters Date Type Department Care Team (Late st Contact Info) Description 07/06/2024 13:40 EST Office Visit [facility] Endocrinology - [address] [address] Wilder Zaidi, 62 [facility] [address] [place] [address] 09/09/2024 10:20 EST Office Visit [facility] Endocrinology - [address] [address] Day Littlejohn MD PhD [address] [address] documented as of this encounter Visit Diagnoses Not on filedocumented in this encounter Discontinued Medications Medication Sig Discontinue Reason Start Date End Da te testosterone (ANDROGEL) 1 %(50 mg/5 gram) gel Place 5 g onto the skin daily. Reorder 06/18/2011 12/25/2011 documented as of this encounter Care Teams Xerox Machine Mechanic Relationship Specialty Start Date End Date Yossi Torres MD [address] [place] [address] DR BUITRAGO [address] [place] [phone] PCP - General 04/17/11 03/14/16 documented as of this encounter
--- OUTSIDE RECORDS SUMMARY | 2024-06-28 13:50 | XMS_ITS | Encounter Summary ---
Author Organization [facility] Address [address] [place] [address] Care Team Providers Care Oncology Rn Name Role Phone Yossi Torres MD Primary Care Provider [phone] Reason for Visit * Reason Comments Follow-up Panhypopituitarism,d iabetes insipidus,hypogonadism Encounter Details Date Type Department Care Team (Latest Contact Info) Description 11/04/2011 13:40 EDT Office Visit [facility] Endocrinology - [facility] [address] [place] [address] Wilder Zaidi, 62 [facility] [address] [place] [address] 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HCC-CMS) (Primary Dx) Social [...] today by his sister Bettina and his coach driver from [facility] as well as both of his caretakers. [...] nonverbal but seems appropriate, according to his post anesthesia nurse and sister. He was able to sit [...] caretakers. He is accompanied today by his post anesthesia nurse from [facility] as well as his sister Bettina. A. [...] and symptoms of hyponatremia today with the post anesthesia nurse and patient's sister, although the subtle [...] Info) Description 07/06/2024 13:40 EST Office Visit [facility] Endocrinology - [address] [address] Wilder Zaidi DO [address] [place] [address] 09/09/2024 10:20 EST Office Visit [facility] Endocrinology [address] [phone] Day Littlejohn MD PhD [address] [place] [address] documented as of this encounter Visit Diagnoses Diagnosis 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[facility])- Primary Panhypopituitarism documented in this encounter Care Teams Oncology Rn Relationship Specialty Start Date End Date Yossi Torres MD [address] [place] [address] DR BUITRAGO [address] [place] [phone] PCP - General 04/17/11 03/14/16 documented as of this encounter
--- OUTSIDE RECORDS SUMMARY | 2024-06-28 13:51 | XMS_ITS | Encounter Summary ---
Author Organization [facility] Address [address] [place] [address] Care Team Providers Care Adult Parole Officer Name Role Phone Corin Skinner MD Primary Care Provider Encounter Details Date Type Department Care Team (Late st Contact Info) Description 10/21/2008 Before PRISM Converted Visit (Maple) [facility] - Maple conversion [address] [place] [address] Christopher Ga MD [address] [place] [phone] Social History Tobacco Use Types Packs/Day [...] Visit [facility] Endocrinology - [facility] [address] [place] [address] Wilder Zaidi DO 62 [facility] [address] [place] [address] 09/09/2024 10:20 EST Office Visit [facility] Endocrinology - [facility] [address] [place] [address] Day Littlejohn MD PhD [address] [place] [place] [address] documented as of this encounter [...] [facility] Sample Type ARTERIAL [facility] shipping and receiving associate ID [id number] Test Performed by Respiratory For non-arterial reference ranges, please see ISTAT procedure. [facility] 10/21/2008 16:4 6 EDT 10/22/2008 1:20 EDT us Christopher Ga MD CHEMISTRY & BLOOD GAS ORDER LYNDSEY Final Result [facility] [address] [place] [address] documented in this encounter Visit Diagnoses Not on filedocumented in this encounter Care Teams Adult Parole Officer Relationship Specialty Start Date End Date Corin Skinner MD [address] [place] [phone] PCP - General 10/24/08 08/21/09 documented as of this encounter
--- OUTSIDE RECORDS SUMMARY | 2024-06-28 13:51 | XMS_ITS | Encounter Summary ---
Author Organization [facility] Address [address] [place] [address] Care Team Providers Care Loan Clerk Name Role Phone Yan Demarco MD Primary Care Provider [phone] Corin Skinner MD Primary Care Provider [phone] Akil Serrano MD Primary Care Provider [phone] Yossi Torres MD Primary Care Provider [phone] Emilee Cody MD Primary Care Provider + Ren Vaz MD Primary Care Provider [phone] Encounter Details Date Type Department Care Team (Late st Contact Info) Description 10/23/2008 Before PRISM Converted Visit (Maple) [facility] Pediatric Primary Care [address] [phone] Aisha Otero MD 111 [facility] [place], [address] [place] [address] Social History Tobacco Use Types [...] Info) Description 07/06/2024 13:40 EST Office Visit [facility] Endocrinology - [place] [address] [place] [address] Wilder Zaidi, DO 62 [facility] [address] [place] [address] 09/09/2024 10:20 EST Office Visit [facility] Endocrinology - [facility] [address] [place] [address] Day Littlejohn MD PhD 62 [facility] [address] [place] [address] documented as of this encounter [...] interpretation and agree with the findings. us Aisha Otero MD IMG DIAGNOSTIC IMAGING ORDERAB LES Final Result documented in this encounter Visit Diagnoses Not on filedocumented in this encounter Care Teams Loan Clerk Relationship Specialty Start Date End Date Yan Demarco MD [address] [place] [address] PCP - General 08/22/09 02/20/10 Corin Skinner MD [address] [place] [phone] PCP - General 10/24/08 08/21/09 Akil Serrano MD [address] [place] [address] [address] [place] [address] PCP - General 02/21/10 04/16/11 Yossi Torres MD [address] [place] [phone] PCP - General 04/17/11 03/14/16 Emilee Cody MD [address] [place] [address] PCP - General 03/15/16 09/29/18 Ren Vaz MD [address] [place] [address] [place] [address] PCP - General 09/30/18 documented as of this encounter
--- OUTSIDE RECORDS SUMMARY | 2024-06-28 13:51 | XMS_ITS | Encounter Summary ---
Author Organization [facility] Address [address] [place] [address] Care Team Providers Care Hemodialysis Charge Nurse Name Role Phone Yan Demarco MD Primary Care Provider [phone] Corin Skinner MD Primary Care Provider [phone] Encounter Details Date Type Department Care Team (Late st Contact Info) Description 10/21/2008 Office Visit [facility] - Map conversion [address] [place] [address] Slava Pineda MD Social History Tobacco Use Types Packs/Day Years Used Date Smoking Tobacco: Never Assessed Sex and Gender Information Value Date Recorded Sex Assigned at Not on file Legal Sex Male 18:35 EST Gender Identity Not on file Sexual Orientation Not on file documented as of this encounter Progress Notes * Slava Pineda MD - 10/14/2009 2343 EDT Department - Physician Summary Registration Date/Time: 10/21/2008 14:55 Time Seen; upon arrival. Arrived- By ambulance. Historian- EMS personnel. History limited by altered mental status. PhysicalExam limited by altered mental status. HISTORY OF PRESENT ILLNESS Chief Complaint: DECREASED MENTAL STATUS. Pt found by dad with 3 days of decreased MS. sent from [facility] after being found hyponatremic and hypothermic [...] gm. Pt received stress dose steroid at [facility] (D10 at 60 cc/hr). . Critical [...] Slava Pineda M.D. 10/21/2008 18:43) Addenda for MIGUEL ANGEL BURGOS JR VisitID: [id number] Date: 10/21/2008 10/21/2008 14:[address] JUAREZ. PT COMING BY AMBULANCE FROM [facility] FOR ED EVAL. PAGE PED ON ARRIVAL. signed by Landy Garcia 10/21/2008 14:56) 10/21/2008 15:[address] ONTIVEROS. PT COMING FROM [facility]. HYPOTHERMIC R TEMP 87.4 HYPONAUTREMIC NA [...] (unable to determine as pt unresponsive). Treatment HELP AID: (Solucortef 100mg IV). Arrived by EMS. Historian: EMS. (Pt presented to [facility] with hypotension/ hypothermia and unresponsive. Pt transfered to [facility] for pediatric/ neuro consult.). --1638 Philippe [...] morse catheter attached to bedside drainage bag (HELP AID). (Dr. Pineda at bedside to assess pt. [...] --1712 Philippe Healy R.N. (EKG performed by [facility], showed to Dr. Pineda.). --1713 Philippe Healy R.N. Finger stick glucose: 166. --171 Philippe Healy R.N. Temp: 32.5 rectal. --173 [...] X 8 cm irregular light brown bruise [id number] diameter darker brown bruise #3. (no standard) [...] (follow up phone call to Domonique at [facility] confirming that photographs have been taken and there is concern for some pattern-type bruises). --2333 Kaylie Ibrahim R.N., [place]. IV / I&O Flowsheet IV fluids started. IV bag #2 of 1000 mL NS; rate = wide open; warmed fluids. --170 Philippe Healy R.N.. DISPOSITION / DISCHARGE Transported via by nurse with monitor, IV and O2. Admitted to pediatrics- ICU. --1808 Philippe Healy R.N.. Kaylie Thakur R.N., R.N., [facility] Locked/Released at 10/22/2008 7:44 by Anabelle Perez R.N. documented in this encounter Plan of Treatment Upcoming Encounters Date Type Department Care Team (Late st Contact Info) Description 07/06/2024 13:40 EST Office Visit [facility] Endocrinology - [address] [phone] Wilder Zaidi, [address] [place] [address] 09/09/2024 10:20 EST Office Visit [facility] - [address] [address] Day Littlejohn MD PhD [address] [place] [address] documented as of this encounter Visit Diagnoses Not on filedocumented in this encounter Care Teams Hemodialysis Charge Nurse Relationship Specialty Start Date End Date Yan Demarco MD [facility] [place] [address] PCP - General 08/22/09 02/20/10 Corin Skinner MD [address] [place] [phone] PCP - General 10/24/08 08/21/09 documented as of this encounter
--- OUTSIDE RECORDS SUMMARY | 2024-06-28 13:51 | XMS_ITS | Encounter Summary ---
Author Organization [facility] Address [address] [place] [address] Care Team Providers Care Sewing Machine Repairer Name Role Phone Yan Demarco MD Primary Care Provider [phone] Corin Skinner MD Primary Care Provider [phone] Akil Serrano MD Primary Care Provider [phone] Yossi Torres MD Primary Care Provider [phone] Emilee Cody MD Primary Care Provider + Ren Vaz MD Primary Care Provider [phone] Encounter Details Date Type Department Care Team (Late st Contact Info) Description 10/22/2008 Before PRISM Converted Visit (Maple) [facility] - Maple conversion [address] [place] [address] Christopher Ga MD [address] [place] [phone] Social History Tobacco Use Types Packs/Day [...] Office Visit [facility] Endocrinology - [address] [address] Shonjalyn Wilder Valencia, DO [address] [facility] [address] [place] [address] 09/09/2024 10:20 EST Office Visit [facility] Endocrinology - [facility] [address] [place] [address] Day Littlejohn MD PhD [address] [facility] [address] [place] [address] documented as of this encounter [...] interpretation and agree with the findings. us Christopher Ga MD IMG DIAGNOSTIC IMAGING [facility] [place] Final Result documented in this encounter Visit Diagnoses Not on filedocumented in this encounter Care Teams Sewing Machine Repairer Relationship Specialty Start Date End Date Yan Demarco MD [address] [place] [address] PCP - General 08/22/09 02/20/10 Corin Skinner MD [address] [place] [phone] PCP - General 10/24/08 08/21/09 Akil Serrano MD 74 [facility] 100 [place], [place] [address] PCP - General 02/21/10 04/16/11 Yossi Torres MD [address] [place] [phone] PCP - General 04/17/11 03/14/16 Emilee Cody MD [address] [place] [phone] PCP - General 03/15/16 09/29/18 Ren Vaz MD [address] [place] [address] PCP - General 09/30/18 documented as of this encounter
--- OUTSIDE RECORDS SUMMARY | 2024-06-28 13:51 | XMS_ITS | Encounter Summary ---
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 Phone Number [facility] [address] [place] [address] * ELECTROLYTES (10/30/2008 7:15 EDT) [facility] Sodium 142 136 - 145 mEq/L [facility] Comment:Heparinized plasma. Potassium 3.8 3.5 - 5.0 mEq/L [facility] Comment:Heparinized plasma. Chloride 107 96 - 110 mEq/L [facility] Comment:Heparinized plasma. CO2 26 24 - 32 mEq/L [facility] Comment:Heparinized plasma. Blood specimen (specimen) 10/30/2008 7:15 EDT 10/30/2008 7:32 EDT Christopher Ga MD CHEMISTRY & BLOOD GAS ORDER LYNDSEY Final Result Performing Organization Address [facility] de Phone Number [facility] [address] [place] [address] * CREATININE (10/30/2008 7:15 EDT) [facility] Creatinine 0.70 0.7 - 1.5 mg/dl [facility] Comment:Heparinized plasma. GFR, Calculated >60 ml/min/1.7 3m2 [facility] Comment:Heparinized plasma. Blood specimen (specimen) 10/30/2008 7:15 EDT 10/30/2008 7:32 EDT us Christopher Ga MD CHEMISTRY & BLOOD GAS ORDER LYNDSEY Final Result Performing Organization Address [facility] de Phone Number [facility] [address] [place] [address] * BUN (10/30/2008 7:15 EDT) [facility] BUN 13 10 - 26 mg/dl [facility] Comment:Heparinized plasma. Blood specimen (specimen) 10/30/2008 7:15 EDT 10/30/2008 7:32 EDT us Christopher Ga MD CHEMISTRY & BLOOD GAS ORDER LYNDSEY Final Result Performing Organization Address [facility] de Phone Number [facility] [address] [place] [address] * (ABNORMAL) OSMOLALITY,URINE (10/29/2008 19:50 EDT) [facility] Osmolality, Ur 106(L) 392 - 1090 MOS/KG [facility] Urine specimen (specimen) 10/29/2008 19:50 EDT 10/29/2008 20:08 EDT Christopher Ga MD URINALYSIS ORDERABLES Final Result Performing Organization Address [facility] de Phone Number [facility] [address] [place] [address] * GLUCOSE, SERUM (10/29/2008 18:15 EDT) [facility] Glucose, Serum 87 70 - 100 mg/dl [facility] Blood specimen (specimen) 10/29/2008 18:15 EDT 10/29/2008 18:44 EDT us Christopher Ga MD CHEMISTRY & BLOOD GAS ORDER LYNDSEY Final Result Performing Organization Address [facility] Phone Number [facility] [address] [place] [address] * SODIUM (10/29/2008 18:15 EDT) Sodium 136 136 - 145 mEq/L [facility] Blood specimen (specimen) 10/29/2008 18:15 EDT 10/29/2008 18:44 EDT us Christopher Ga MD CHEMISTRY & BLOOD GAS ORDER LYNDSEY Final Result Performing Organization Address [facility] Phone Number [facility] [address] [place] [address] * SODIUM, URINE RANDOM (10/29/2008 18:15 EDT) Sodium, Ur 87.0 mEq/L [facility] Urine specimen (specimen) 10/29/2008 18:15 EDT 10/29/2008 18:45 EDT us Christopher Ga MD URINALYSIS ORDERABLES Final Result Performing Organization Address [facility] Phone Number [facility] [address] [place] [address] * (ABNORMAL) OSMOLALITY,URINE (10/29/2008 18:15 EDT) Osmolality, Ur 336(L) 392 - 1090 MOS/KG [facility] Urine specimen (specimen) 10/29/2008 18:15 EDT 10/29/2008 18:45 EDT us Christopher Ga MD URINALYSIS ORDERABLES Final Result Performing Organization Address [facility] Phone Number [facility] [address] [place] [address] * (ABNORMAL) GLUCOSE, SERUM (10/29/2008 6:40 EDT) Glucose, Serum 63(L) 70 - 100 mg/dl [facility] Blood specimen (specimen) 10/29/2008 6:40 EDT 10/29/2008 6:55 EDT us Christopher Ga MD CHEMISTRY & BLOOD GAS ORDER LYNDSEY Final Result Performing Organization Address [facility] Co de Phone Number [facility] [address] [place] [address] * ELECTROLYTES (10/29/2008 6:40 EDT) Sodium 138 136 - 145 mEq/L [facility] Potassium 3.7 3.5 - 5.0 mEq/L [facility] Chloride 105 96 - 110 mEq/L [facility] CO2 27 24 - 32 mEq/L [facility] Blood specimen (specimen) 10/29/2008 6:40 EDT 10/29/2008 6:55 EDT us Christopher Ga MD CHEMISTRY & BLOOD GAS ORDER LYNDSEY Final Result Performing Organization Address [facility] de Phone Number [facility] [address] [place] [address] * CREATININE (10/29/2008 6:40 EDT) Creatinine 0.70 0.7 - 1.5 mg/dl [facility] GFR, Calculated >60 ml/min/1.7 3m2 [facility] Blood specimen (specimen) 10/29/2008 6:40 EDT 10/29/2008 6:55 EDT us Christopher Ga MD CHEMISTRY & BLOOD GAS ORDER LYNDSEY Final Result Performing Organization Address [facility] Co de Phone Number [facility] [address] [place] [address] * BUN (10/29/2008 6:40 EDT) BUN 13 10 - 26 mg/dl [facility] Blood specimen (specimen) 10/29/2008 6:40 EDT 10/29/2008 6:55 EDT us Christopher Ga MD CHEMISTRY & BLOOD GAS ORDER LYNDSEY Final Result Performing Organization Address [facility] Phone Number [facility] [address] [place] [address] * (ABNORMAL) OSMOLALITY,URINE (10/29/2008 6:35 EDT) Pathologist [facility] Osmolality, Ur 171(L) 392 - 1090 MOS/KG [facility] 10/29/2008 6:35 EDT 10/29/2008 6:57 EDT us Christopher Ga MD URINALYSIS ORDERABLES Final Result Performing Organization Address [facility] Phone Number [facility] [address] [place] [address] * SODIUM, URINE RANDOM (10/29/2008 6:35 EDT) Sodium, Ur 71.0 mEq/L [facility] 10/29/2008 6:35 EDT 10/29/2008 6:57 EDT us Christopher Ga MD URINALYSIS ORDERABLES Final Result Performing Organization Address [facility] Phone Number [facility] [address] [place] [address] * SODIUM, URINE RANDOM (10/29/2008 1:35 EDT) Sodium, Ur 262.0 mEq/L [facility] Urine specimen (specimen) 10/29/2008 1:35 EDT 10/29/2008 1:54 EDT us Christopher Ga MD URINALYSIS ORDERABLES Final Result Performing Organization Address [facility] Phone Number [facility] [address] [place] [address] * OSMOLALITY,URINE (10/29/2008 1:35 EDT) Osmolality, Ur 581 392 - 1090 MOS/KG [facility] Urine specimen (specimen) 10/29/2008 1:35 EDT 10/29/2008 1:54 EDT us Christopher Ga MD URINALYSIS ORDERABLES Final Result Performing Organization Address [facility] de Phone Number [facility] [address] [place] [address] * TESTS ADDED BY PHONE (10/28/2008 19:25 EDT) 10/28/2008 19:2 5 EDT 10/28/2008 19:34 EDT us Christopher Ga MD CHEMISTRY & BLOOD GAS ORDER LYNDSEY Final Result Performing Organization Address [facility] Phone Number [facility] [address] [place] [address] * (ABNORMAL) OSMOLALITY,URINE (10/28/2008 19:25 EDT) Pathologist [facility] Osmolality, Ur 327(L) 392 - 1090 MOS/KG [facility] 10/28/2008 19:2 5 EDT 10/28/2008 19:36 EDT us Christopher Ga MD URINALYSIS ORDERABLES Final Result Performing Organization Address [facility] Phone Number [facility] [address] [place] [address] * HOLD GREEN TOP (10/28/2008 19:25 EDT) Pathologist [facility] Hold Green Top Hold for further testing. Specimen will be held for 5 days. [facility] 10/28/2008 19:2 5 EDT 10/28/2008 19:34 EDT us Christopher Ga MD LAB INFO SERVICE AND SUPPOR T & PHONE RESULT Final Result Performing Organization Address [facility] de Phone Number [facility] [address] [place] [address] * SODIUM, URINE RANDOM (10/28/2008 19:25 EDT) Sodium, Ur 115.0 mEq/L [facility] Urine specimen (specimen) 10/28/2008 19:25 EDT 10/28/2008 19:36 EDT Christopher Ga MD URINALYSIS ORDERABLES Final Result Performing Organization Address [facility] de Phone Number [facility] [address] [place] [address] * GLUCOSE, SERUM (10/28/2008 19:25 EDT) Glucose, Serum 80 70 - 100 mg/dl [facility] Blood specimen (specimen) 10/28/2008 19:25 EDT 10/28/2008 19:34 EDT Christopher Ga MD CHEMISTRY & BLOOD GAS ORDER LYNDSEY Final Result Performing Organization Address [facility] Phone Number [facility] [address] [place] [address] * ELECTROLYTES (10/28/2008 19:25 EDT) Sodium 142 136 - 145 mEq/L [facility] Potassium 3.7 3.5 - 5.0 mEq/L [facility] Chloride 107 96 - 110 mEq/L [facility] CO2 29 24 - 32 mEq/L [facility] Blood specimen (specimen) 10/28/2008 19:25 EDT 10/28/2008 19:34 EDT Christopher Ga MD CHEMISTRY & BLOOD GAS ORDER LYNDSEY Final Result Performing Organization Address [facility] de Phone Number [facility] [address] [place] [address] * CORTISOL (10/28/2008 19:25 EDT) Cortisol 20 ug/dl [facility] Comment: 7-9a.m.=4.3-22.4 3-5p.m.=3.1-16.7 Blood specimen (specimen) 10/28/2008 19:25 EDT 10/28/2008 19:34 EDT us Christopher Ga MD CHEMISTRY & BLOOD GAS ORDER LYNDSEY Final Result Performing Organization Address [facility] de Phone Number [facility] [address] [place] [address] * TESTOSTERONE (10/28/2008 12:41 EDT) Testosterone, Total 398 241 - 827 ng/dL [facility] Blood specimen (specimen) 10/28/2008 12:41 EDT 10/28/2008 12:44 EDT us Christopher Ga MD CHEMISTRY & BLOOD GAS ORDER LYNDSEY Final Result Performing Organization Address [facility] Phone Number [facility] [address] [place] [address] * (ABNORMAL) SODIUM (10/28/2008 11:55 EDT) Sodium 146(H) 136 - 145 mEq/L [facility] 10/28/2008 11:5 5 EDT 10/28/2008 12:24 EDT us Christopher Ga MD CHEMISTRY & BLOOD GAS ORDER LYNDSEY Final Result Performing Organization Address [facility] de Phone Number [facility] [address] [place] [address] * TESTOSTERONE (10/28/2008 11:55 EDT) Testosterone, Total Wrong tube/speci men type 241 - 827 ng/dL [facility] Blood specimen (specimen) 10/28/2008 11:55 EDT 10/28/2008 12:16 EDT us Christopher Ga MD CHEMISTRY & BLOOD GAS ORDER LYNDSEY Final Result Performing Organization Address [facility] de Phone Number [facility] [address] [place] [address] * CORTISOL (10/28/2008 11:55 EDT) Cortisol Wrong tube/speci men type ug/dl [facility] Comment:SPOKE TO ANKITA Blood specimen (specimen) 10/28/2008 11:55 EDT 10/28/2008 12:16 EDT us Christopher Ga MD CHEMISTRY & BLOOD GAS ORDER LYNDSEY Final Result Performing Organization Address [facility] Co de Phone Number [facility] [address] [place] [address] * SODIUM (10/28/2008 11:55 EDT) Sodium Wrong tube/speci men type 136 - 145 mEq/L [facility] Comment:SPOKE TO ANKITA Blood specimen (specimen) 10/28/2008 11:55 EDT 10/28/2008 12:16 EDT us Christopher Ga MD CHEMISTRY & BLOOD GAS ORDER LYNDSEY Final Result Performing Organization Address [facility] de Phone Number [facility] [address] [place] [address] * SODIUM, URINE RANDOM (10/28/2008 11:45 EDT) Sodium, Ur 214.0 mEq/L [facility] Urine specimen (specimen) 10/28/2008 11:45 EDT 10/28/2008 12:14 EDT us Christopher Ga MD URINALYSIS ORDERABLES Final Result Performing Organization Address [facility] Co de Phone Number [facility] [address] [place] [address] * OSMOLALITY,URINE (10/28/2008 11:45 EDT) Osmolality, Ur 512 392 - 1090 MOS/KG [facility] Urine specimen (specimen) 10/28/2008 11:45 EDT 10/28/2008 12:14 EDT us Christopher Ga MD URINALYSIS ORDERABLES Final Result Performing Organization Address [facility] de Phone Number [facility] [address] [place] [address] * SODIUM, URINE RANDOM (10/28/2008 10:13 EDT) Sodium, Ur 58.0 mEq/L [facility] Urine specimen (specimen) 10/28/2008 10:13 EDT 10/28/2008 10:18 EDT us Christopher Ga MD URINALYSIS ORDERABLES Final Result Performing Organization Address [facility] Phone Number [facility] [address] [place] [address] * (ABNORMAL) OSMOLALITY,URINE (10/28/2008 10:13 EDT) Osmolality, Ur 171(L) 392 - 1090 MOS/KG [facility] Urine specimen (specimen) 10/28/2008 10:13 EDT 10/28/2008 10:18 EDT us Christopher Ga MD URINALYSIS ORDERABLES Final Result Performing Organization Address [facility] Phone Number [facility] [address] [place] [address] * SODIUM (10/28/2008 10:13 EDT) Sodium 144 136 - 145 mEq/L [facility] Blood specimen (specimen) 10/28/2008 10:13 EDT 10/28/2008 10:18 EDT us Christopher Ga MD CHEMISTRY & BLOOD GAS ORDER LYNDSEY Final Result Performing Organization Address [facility] Phone Number [facility] [address] [place] [address] * TESTS ADDED BY PHONE (10/28/2008 8:15 EDT) Tests to be added OSM [facility] Who Called DR NAVI [facility] Location Code M3 TRUE [facility] Read Back/Confirmed ? YES [facility] 10/28/2008 8:15 EDT 10/28/2008 8:30 EDT Christopher Ga MD CHEMISTRY & BLOOD GAS ORDER LYNDSEY Final Result Performing Organization Address [facility] de Phone Number [facility] [address] [place] [address] * (ABNORMAL) OSMOLALITY,URINE (10/28/2008 8:15 EDT) [facility] Osmolality, Ur 295(L) 392 - 1090 MOS/KG [facility] 10/28/2008 8:15 EDT 10/28/2008 8:30 EDT us Christopher Ga MD URINALYSIS ORDERABLES Final Result Performing Organization Address [facility] de Phone Number [facility] [address] [place] [address] * SODIUM, URINE RANDOM (10/28/2008 8:15 EDT) [facility] Sodium, Ur 131.0 mEq/L [facility] Urine specimen (specimen) 10/28/2008 8:15 EDT 10/28/2008 8:30 EDT us Christopher Ga MD URINALYSIS ORDERABLES Final Result Performing Organization Address [facility] de Phone Number [facility] [address] [place] [address] * (ABNORMAL) ELECTROLYTES (10/28/2008 8:15 EDT) [facility] Sodium 143 136 - 145 mEq/L [facility] Potassium 3.3(L) 3.5 - 5.0 mEq/L [facility] Chloride 109 96 - 110 mEq/L [facility] CO2 30 24 - 32 mEq/L [facility] Blood specimen (specimen) 10/28/2008 8:15 EDT 10/28/2008 8:29 EDT us Christopher Ga MD CHEMISTRY & BLOOD GAS ORDER LYNDSEY Final Result Performing Organization Address [facility] de Phone Number [facility] [address] [place] [address] * (ABNORMAL) ELECTROLYTES (10/28/2008 6:00 EDT) Sodium 136 136 - 145 mEq/L [facility] Potassium 2.8(LL) 3.5 - 5.0 mEq/L [facility] Comment:Sample retested, res ult confirmed Chloride 104 96 - 110 mEq/L [facility] CO2 25 24 - 32 mEq/L [facility] 10/28/2008 6:00 EDT 10/28/2008 6:16 EDT us Christopher Ga MD CHEMISTRY & BLOOD GAS ORDER LYNDSEY Final Result Performing Organization Address [facility] de Phone Number [facility] [address] [place] [address] * (ABNORMAL) CREATININE (10/28/2008 6:00 EDT) Creatinine 0.65(L) 0.7 - 1.5 mg/dl [facility] GFR, Calculated >60 ml/min/1.7 3m2 [facility] 10/28/2008 6:00 EDT 10/28/2008 6:16 EDT us Christopher Ga MD CHEMISTRY & BLOOD GAS ORDER LYNDSEY Final Result Performing Organization Address [facility] de Phone Number [facility] [address] [place] [address] * (ABNORMAL) BUN (10/28/2008 6:00 EDT) BUN 9(L) 10 - 26 mg/dl [facility] 10/28/2008 6:00 EDT 10/28/2008 6:16 EDT us Christopher Ga MD CHEMISTRY & BLOOD GAS ORDER LYNDSEY Final Result Performing Organization Address [facility] Phone Number [facility] [address] [place] [address] * SODIUM, URINE RANDOM (10/28/2008 6:00 EDT) Sodium, Ur 169.0 mEq/L [facility] Urine specimen (specimen) 10/28/2008 6:00 EDT 10/28/2008 6:15 EDT us Christopher Ga MD URINALYSIS ORDERABLES Final Result Performing Organization Address [facility] [address] [place] [address] * OSMOLALITY,URINE (10/28/2008 6:00 EDT) Osmolality, Ur 397 392 - 1090 MOS/KG [facility] Urine specimen (specimen) 10/28/2008 6:00 EDT 10/28/2008 6:15 EDT us Christopher Ga MD URINALYSIS ORDERABLES Final Result Performing Organization Address [facility] Phone Number [facility] [address] [place] [address] * GLUCOSE, SERUM (10/28/2008 4:00 EDT) Glucose, Serum 74 70 - 100 mg/dl [facility] Blood specimen (specimen) 10/28/2008 4:00 EDT 10/28/2008 4:01 EDT us Christopher Ga MD CHEMISTRY & BLOOD GAS ORDER LYNDSEY Final Result Performing Organization Address [facility] de Phone Number [facility] [address] [place] [address] * SODIUM (10/28/2008 4:00 EDT) Sodium 143 136 - 145 mEq/L [facility] Blood specimen (specimen) 10/28/2008 4:00 EDT 10/28/2008 4:01 EDT us Christopher Ga MD CHEMISTRY & BLOOD GAS ORDER LYNDSEY Final Result Performing Organization Address [facility] Phone Number [facility] [address] [place] [address] * SODIUM, URINE RANDOM (10/28/2008 4:00 EDT) Sodium, Ur 177.0 mEq/L [facility] Urine specimen (specimen) 10/28/2008 4:00 EDT 10/28/2008 4:01 EDT us Christopher Ga MD URINALYSIS ORDERABLES Final Result Performing Organization Address [facility] Phone Number [facility] [address] [place] [address] * OSMOLALITY,URINE (10/28/2008 4:00 EDT) Osmolality, Ur 402 392 - 1090 MOS/KG [facility] Urine specimen (specimen) 10/28/2008 4:00 EDT 10/28/2008 4:01 EDT us Christopher Ga MD URINALYSIS ORDERABLES Final Result Performing Organization Address [facility] Phone Number [facility] [address] [place] [address] * SODIUM, URINE RANDOM (10/28/2008 2:30 EDT) Sodium, Ur 175.0 mEq/L [facility] Urine specimen (specimen) 10/28/2008 2:30 EDT 10/28/2008 2:35 EDT us Christopher Ga MD URINALYSIS ORDERABLES Final Result Performing Organization Address [facility] Phone Number [facility] [address] [place] [address] * OSMOLALITY,URINE (10/28/2008 2:30 EDT) Osmolality, Ur 398 392 - 1090 MOS/KG [facility] Urine specimen (specimen) 10/28/2008 2:30 EDT 10/28/2008 2:35 EDT Christopher Ga MD URINALYSIS ORDERABLES Final Result Performing Organization Address [facility] Phone Number [facility] [address] [place] [address] * SODIUM (10/28/2008 2:00 EDT) Pathologist [facility] Sodium 144 136 - 145 mEq/L [facility] 10/28/2008 2:00 EDT 10/28/2008 2:14 EDT Christopher Ga MD CHEMISTRY & BLOOD GAS ORDER LYNDSEY Final Result Performing Organization Address [facility] Phone Number [facility] [address] [place] [address] * SODIUM, URINE RANDOM (10/27/2008 20:00 EDT) Pathologist [facility] Sodium, Ur 213.0 mEq/L [facility] [facility] Comment:Sample retested, res ult confirmed Urine specimen (specimen) 10/27/2008 20:00 EDT 10/27/2008 20:09 EDT Christopher Ga MD URINALYSIS ORDERABLES Final Result Performing Organization Address [facility] Phone Number [facility] [address] [place] [address] * OSMOLALITY,URINE (10/27/2008 20:00 EDT) Osmolality, Ur 544 392 - 1090 MOS/KG [facility] Urine specimen (specimen) 10/27/2008 20:00 EDT 10/27/2008 20:09 EDT us Christopher Ga MD URINALYSIS ORDERABLES Final Result Performing Organization Address [facility] de Phone Number [facility] [address] [place] [address] * (ABNORMAL) ELECTROLYTES (10/27/2008 20:00 EDT) Sodium 147(H) 136 - 145 mEq/L [facility] Potassium 3.4(L) 3.5 - 5.0 mEq/L [facility] Chloride 112(H) 96 - 110 mEq/L [facility] CO2 28 24 - 32 mEq/L [facility] Blood specimen (specimen) 10/27/2008 20:00 EDT 10/27/2008 20:09 EDT us Christopher Ga MD CHEMISTRY & BLOOD GAS ORDER LYNDSEY Final Result Performing Organization Address [facility] de Phone Number [facility] [address] [place] [address] * CREATININE (10/27/2008 20:00 EDT) Creatinine 0.80 0.7 - 1.5 mg/dl [facility] GFR, Calculated >60 ml/min/1.7 3m2 [facility] Blood specimen (specimen) 10/27/2008 20:00 EDT 10/27/2008 20:09 EDT us Christopher Ga MD CHEMISTRY & BLOOD GAS ORDER LYNDSEY Final Result Performing Organization Address [facility] de Phone Number [facility] [address] [place] [address] * BUN (10/27/2008 20:00 EDT) BUN 13 10 - 26 mg/dl [facility] Blood specimen (specimen) 10/27/2008 20:00 EDT 10/27/2008 20:09 EDT us Christopher Ga MD CHEMISTRY & BLOOD GAS ORDER LYNDSEY Final Result Performing Organization Address [facility] de Phone Number [facility] [address] [place] [address] * (ABNORMAL) SODIUM (10/27/2008 14:30 EDT) Sodium 152(H) 136 - 145 mEq/L [facility] Blood specimen (specimen) 10/27/2008 14:30 EDT 10/27/2008 14:47 EDT us Christopher Ga MD CHEMISTRY & BLOOD GAS ORDER LYNDSEY Final Result Performing Organization Address [facility] de Phone Number [facility] [address] [place] [address] * SODIUM, URINE RANDOM (10/27/2008 13:20 EDT) Sodium, Ur 19.0 mEq/L [facility] Urine specimen (specimen) 10/27/2008 13:20 EDT 10/27/2008 13:32 EDT us Christopher Ga MD URINALYSIS ORDERABLES Final Result Performing Organization Address [facility] de Phone Number [facility] [address] [place] [address] * (ABNORMAL) OSMOLALITY,URINE (10/27/2008 13:20 EDT) Osmolality, Ur 116(L) 392 - 1090 MOS/KG [facility] Urine specimen (specimen) 10/27/2008 13:20 EDT 10/27/2008 13:32 EDT us Christopher Ga MD URINALYSIS ORDERABLES Final Result Performing Organization Address [facility] de Phone Number [facility] [address] [place] [address] * SODIUM, URINE RANDOM (10/27/2008 12:23 EDT) Sodium, Ur 107.0 mEq/L [facility] Urine specimen (specimen) 10/27/2008 12:23 EDT 10/27/2008 12:23 EDT us Christopher Ga MD URINALYSIS ORDERABLES Final Result Performing Organization Address [facility] Phone Number [facility] [address] [place] [address] * OSMOLALITY,URINE (10/27/2008 12:23 EDT) Osmolality, Ur 808 392 - 1090 MOS/KG [facility] Urine specimen (specimen) 10/27/2008 12:23 EDT 10/27/2008 12:23 EDT us Christopher Ga MD URINALYSIS ORDERABLES Final Result Performing Organization Address [facility] de Phone Number [facility] [address] [place] [address] * (ABNORMAL) SODIUM (10/27/2008 12:21 EDT) Sodium 150(H) 136 - 145 mEq/L [facility] Blood specimen (specimen) 10/27/2008 12:21 EDT 10/27/2008 12:21 EDT us Christopher aG MD CHEMISTRY & BLOOD GAS ORDER LYNDSEY Final Result Performing Organization Address [facility] de Phone Number [facility] [address] [place] [address] * (ABNORMAL) SODIUM (10/27/2008 9:40 EDT) Sodium 151(H) 136 - 145 mEq/L [facility] Blood specimen (specimen) 10/27/2008 9:40 EDT 10/27/2008 9:59 EDT us Christopher Ga MD CHEMISTRY & BLOOD GAS ORDER LYNDSEY Final Result Performing Organization Address [facility] de Phone Number [facility] [address] [place] [address] * (ABNORMAL) SODIUM (10/27/2008 6:50 EDT) Sodium 152(H) 136 - 145 mEq/L [facility] Comment:Sample retested, res ult confirmed Blood specimen (specimen) 10/27/2008 6:50 EDT 10/27/2008 6:52 EDT us Christopher Ga MD CHEMISTRY & BLOOD GAS ORDER LYNDSEY Final Result Performing Organization Address [facility] de Phone Number [facility] [address] [place] [address] * (ABNORMAL) SODIUM (10/27/2008 6:15 EDT) Sodium 124(LL) 136 - 145 mEq/L [facility] Comment: Sample retested, result confirmed Question specimen contaminated. Repeat Requested Blood specimen (specimen) 10/27/2008 6:15 EDT 10/27/2008 6:16 EDT us Christopher Ga MD CHEMISTRY & BLOOD GAS ORDER LYNDSEY Final Result Performing Organization Address [facility] de Phone Number [facility] [address] [place] [address] * GLUCOSE, SERUM (10/27/2008 4:30 EDT) Glucose, Serum 86 70 - 100 mg/dl [facility] 10/27/2008 4:30 EDT 10/27/2008 4:34 EDT us Christopher Ga MD CHEMISTRY & BLOOD GAS ORDER LYNDSEY Final Result Performing Organization Address [facility] de Phone Number [facility] [address] [place] [address] * (ABNORMAL) ELECTROLYTES (10/27/2008 4:30 EDT) Sodium 154(H) 136 - 145 mEq/L [facility] Potassium 3.4(L) 3.5 - 5.0 mEq/L [facility] Chloride 118(H) 96 - 110 mEq/L [facility] CO2 28 24 - 32 mEq/L [facility] Blood specimen (specimen) 10/27/2008 4:30 EDT 10/27/2008 4:34 EDT us Christopher Ga MD CHEMISTRY & BLOOD GAS ORDER LYNDSEY Final Result Performing Organization Address [facility] de Phone Number [facility] [address] [place] [address] * CREATININE (10/27/2008 4:30 EDT) Creatinine 0.83 0.7 - 1.5 mg/dl [facility] GFR, Calculated >60 ml/min/1.7 3m2 [facility] Blood specimen (specimen) 10/27/2008 4:30 EDT 10/27/2008 4:34 EDT us Christopher Ga MD CHEMISTRY & BLOOD GAS ORDER LYNDSEY Final Result Performing Organization Address [facility] Phone Number [facility] [address] [place] [address] * BUN (10/27/2008 4:30 EDT) BUN 14 10 - 26 mg/dl [facility] Blood specimen (specimen) 10/27/2008 4:30 EDT 10/27/2008 4:34 EDT us Christopher Ga MD CHEMISTRY & BLOOD GAS ORDER LYNDSEY Final Result Performing Organization Address [facility] de Phone Number [facility] [address] [place] [address] * (ABNORMAL) SODIUM (10/27/2008 1:30 EDT) Sodium 159(HH) 136 - 145 mEq/L [facility] Comment:Sample retested, res ult confirmed Blood specimen (specimen) 10/27/2008 1:30 EDT 10/27/2008 1:41 EDT us Christopher Ga MD CHEMISTRY & BLOOD GAS ORDER LYNDSEY Final Result Performing Organization Address [facility] de Phone Number [facility] [address] [place] [address] * SODIUM, URINE RANDOM (10/27/2008 0:15 EDT) Sodium, Ur 40.0 mEq/L [facility] Urine specimen (specimen) 10/27/2008 0:15 EDT 10/27/2008 0:19 EDT us Christopher Ga MD URINALYSIS ORDERABLES Final Result Performing Organization Address [facility] de Phone Number [facility] [address] [place] [address] * (ABNORMAL) OSMOLALITY,URINE (10/27/2008 0:15 EDT) Pathologist [facility] Osmolality, Ur 201(L) 392 - 1090 MOS/KG [facility] Urine specimen (specimen) 10/27/2008 0:15 EDT 10/27/2008 0:19 EDT us Christopher Ga MD URINALYSIS ORDERABLES Final Result Performing Organization Address [facility] de Phone Number [facility] [address] [place] [address] * (ABNORMAL) SODIUM (10/26/2008 22:48 EDT) Sodium 161(HH) 136 - 145 mEq/L [facility] Comment:Sample retested, res ult confirmed Blood specimen (specimen) 10/26/2008 22:48 EDT 10/26/2008 23:00 EDT us Christopher Ga MD CHEMISTRY & BLOOD GAS ORDER LYNDSEY Final Result Performing Organization Address [facility] de Phone Number [facility] [address] [place] [address] * CORTISOL (10/26/2008 18:41 EDT) Cortisol 23 ug/dl [facility] Comment: 7-9a.m.=4.3-22.4 3-5p.m.=3.1-16.7 10/26/2008 18:4 1 EDT 10/26/2008 18:41 EDT Christopher Ga MD CHEMISTRY & BLOOD GAS ORDER LYNDSEY Final Result Performing Organization Address [facility] de Phone Number [facility] [address] [place] [address] * (ABNORMAL) SODIUM (10/26/2008 18:41 EDT) Sodium 154(H) 136 - 145 mEq/L [facility] Blood specimen (specimen) 10/26/2008 18:41 EDT 10/26/2008 18:41 EDT Christopher Ga MD CHEMISTRY & BLOOD GAS ORDER LYNDSEY Final Result Performing Organization Address [facility] Phone Number [facility] [address] [place] [address] * (ABNORMAL) SODIUM (10/26/2008 9:59 EDT) Sodium 148(H) 136 - 145 mEq/L [facility] specimen (specimen) 10/26/2008 9:59 EDT 10/26/2008 10:02 EDT Christopher Ga MD CHEMISTRY & BLOOD GAS ORDER LYNDSEY Final Result Performing Organization Address [facility] de Phone Number [facility] [address] [place] [address] * CORTISOL (10/26/2008 6:12 EDT) Cortisol 13 ug/dl [facility] Comment: 7-9a.m.=4.3-22.4 3-5p.m.=3.1-16.7 10/26/2008 6:12 EDT 10/26/2008 6:24 EDT us Christopher Ga MD CHEMISTRY & BLOOD GAS ORDER LYNDSEY Final Result Performing Organization Address City/[facility]/ZIP Co de Phone Number [facility] [address] [place] [address] * TESTS ADDED BY PHONE (10/26/2008 6:12 EDT) Pathologist [facility] Tests to be added STAT [facility] GARCIA Who Called TAMIE M3 FOR DR CHARLEEN GARCIA Location Code M3 [facility] Read Back/Confirmed ? YES [facility] 10/26/2008 6:12 EDT 10/26/2008 6:24 EDT us Christopher Ga MD CHEMISTRY & BLOOD GAS ORDER LYNDSEY Final Result Performing Organization Address [facility] Co de Phone Number [facility] [address] [place] [address] * (ABNORMAL) HEMAGRAM AND DIFFERENTIAL (10/26/2008 6:12 EDT) WBC 4.96 4.0 - 10.4 K/cmm [facility] RBC 3.12(L) 4.36 - 5.78 M/cmm [facility] Hemoglobin 7.9(L) 13.8 - 17.3 gm/dl [facility] HCT 23.9(L) 39.5 - 50.2 % [facility] MCV 76(L) 81 - 95 fl [facility] MCH 25.3(L) 27.6 - 33.0 pg [facility] MCHC 33.1 32.8 - 36.4 gm/dl [facility] PLT 98(L) 141 - 320 K/cmm [facility] RDW-CV 18.5(H) 11.8 - 14.1 % [facility] Neutrophils 67.8 45.5 - 79.7 % [facility] Lymphocytes 26.9 15.0 - 46.8 % [facility] Monocytes 4.7 1.8 - 12.0 % [facility] Eosinophils 0.3(L) 0.6 - 6.9 % [facility] Basophils 0.3 0.2 - 1.4 % [facility] ABS Neutrophils 3.36 2.20 - 8.85 K/cmm [facility] ABS Lymphs 1.34 1.09 - 3.30 K/cmm [facility] ABS Monocytes 0.23 0.1 - 0.8 K/cmm [facility] ABS Eosinophils 0.02(L) 0.03 - 0.61 K/cmm [facility] ABS Basophils 0.01 0.01 - 0.11 K/cmm [facility] Type of Diff: Automated [facility] Blood specimen (specimen) 10/26/2008 6:12 EDT 10/26/2008 6:24 EDT us Christopher Ga MD PACKAGES & DNA PROBE ORDERA BLES Final Result Performing Organization Address [facility] de Phone Number [facility] [address] [place] [address] * GLUCOSE, SERUM (10/26/2008 6:12 EDT) Glucose, Serum 71 70 - 100 mg/dl [facility] Blood specimen (specimen) 10/26/2008 6:12 EDT 10/26/2008 6:24 EDT us Christopher Ga MD CHEMISTRY & BLOOD GAS ORDER LYNDSEY Final Result Performing Organization Address [facility] de Phone Number [facility] [address] [place] [address] * (ABNORMAL) ELECTROLYTES (10/26/2008 6:12 EDT) Sodium 148(H) 136 - 145 mEq/L [facility] Potassium 3.6 3.5 - 5.0 mEq/L [facility] Chloride 113(H) 96 - 110 mEq/L [facility] CO2 29 24 - 32 mEq/L [facility] Blood specimen (specimen) 10/26/2008 6:12 EDT 10/26/2008 6:24 EDT us Christopher Ga MD CHEMISTRY & BLOOD GAS ORDER LYNDSEY Final Result Performing Organization Address City/[facility]/ZIP Co de Phone Number [facility] [address] [place] [address] * CREATININE (10/26/2008 6:12 EDT) Creatinine 0.90 0.7 - 1.5 mg/dl [facility] GFR, Calculated >60 ml/min/1.7 3m2 [facility] Blood specimen (specimen) 10/26/2008 6:12 EDT 10/26/2008 6:24 EDT us Christopher Ga MD CHEMISTRY & BLOOD GAS ORDER LYNDSEY Final Result Performing Organization Address [facility] Co de Phone Number [facility] [address] [place] [address] * BUN (10/26/2008 6:12 EDT) [facility] BUN 20 10 - 26 mg/dl [facility] Blood specimen (specimen) 10/26/2008 6:12 EDT 10/26/2008 6:24 EDT us Christopher Ga MD CHEMISTRY & BLOOD GAS ORDER LYNDSEY Final Result Performing Organization Address [facility] Co de Phone Number [facility] [address] [place] [address] * GLUCOSE, SERUM (10/26/2008 1:57 EDT) Glucose, Serum 71 70 - 100 mg/dl [facility] Blood specimen (specimen) 10/26/2008 1:57 EDT 10/26/2008 2:01 EDT us Christopher Ga MD CHEMISTRY & BLOOD GAS ORDER LYNDSEY Final Result Performing Organization Address [facility]/ZIP Co de Phone Number [facility] [address] [place] [address] * (ABNORMAL) SODIUM (10/26/2008 1:57 EDT) Sodium 148(H) 136 - 145 mEq/L [facility] Blood specimen (specimen) 10/26/2008 1:57 EDT 10/26/2008 2:01 EDT us Christopher Ga MD CHEMISTRY & BLOOD GAS ORDER LYNDSEY Final Result Performing Organization Address [facility] de Phone Number [facility] [address] [place] [address] * (ABNORMAL) SODIUM (10/25/2008 22:00 EDT) Sodium 147(H) 136 - 145 mEq/L [facility] Blood specimen (specimen) 10/25/2008 22:00 EDT 10/25/2008 22:08 EDT us Christopher Ga MD CHEMISTRY & BLOOD GAS ORDER LYNDSEY Final Result Performing Organization Address [facility] Phone Number [facility] [address] [place] [address] * GLUCOSE, GLUCOMETER (10/25/2008 20:59 EDT) Pathologist [facility] Glucose, Fingerstick 93 70 - 100 mg/dl [facility] [employer] ID [id number] Test Performed by Nursing Services [facility] 10/25/2008 20:5 9 EDT 10/25/2008 23:05 EDT us Christopher Ga MD CHEMISTRY & BLOOD GAS ORDER LYNDSEY Final Result Performing Organization Address [facility] de Phone Number [facility] [address] [place] [address] * HOLD GREEN TOP (10/25/2008 20:05 EDT) Pathologist [facility] Hold Green Top Hold for further testing. Specimen will be held for 5 days. [facility] 10/25/2008 20:0 5 EDT 10/25/2008 20:18 EDT us Christopher Ga MD LAB INFO SERVICE AND SUPPOR T & PHONE RESULT Final Result Performing Organization Address [facility] de Phone Number [facility] [address] [place] [address] * GLUCOSE, SERUM (10/25/2008 20:05 EDT) Glucose, Serum 73 70 - 100 mg/dl [facility] Blood specimen (specimen) 10/25/2008 20:05 EDT 10/25/2008 20:18 EDT us Christopher Ga MD CHEMISTRY & BLOOD GAS ORDER LYNDSEY Final Result Performing Organization Address [facility] de Phone Number [facility] [address] [place] [address] * (ABNORMAL) ELECTROLYTES (10/25/2008 20:05 EDT) Sodium 147(H) 136 - 145 mEq/L [facility] Potassium 3.7 3.5 - 5.0 mEq/L [facility] Chloride 113(H) 96 - 110 mEq/L [facility] CO2 27 24 - 32 mEq/L [facility] Blood specimen (specimen) 10/25/2008 20:05 EDT 10/25/2008 20:18 EDT us Christopher Ga MD CHEMISTRY & BLOOD GAS ORDER LYNDSEY Final Result Performing Organization Address [facility] de Phone Number [facility] [address] [place] [address] * CREATININE (10/25/2008 20:05 EDT) Creatinine 0.80 0.7 - 1.5 mg/dl [facility] GFR, Calculated >60 ml/min/1.7 3m2 [facility] Blood specimen (specimen) 10/25/2008 20:05 EDT 10/25/2008 20:18 EDT us Christopher Ga MD CHEMISTRY & BLOOD GAS ORDER LYNDSEY Final Result Performing Organization Address City/State/[facility] Co de Phone Number [facility] [address] [place] [address] * BUN (10/25/2008 20:05 EDT) BUN 16 10 - 26 mg/dl [facility] Blood specimen (specimen) 10/25/2008 20:05 EDT 10/25/2008 20:18 EDT us Christopher Ga MD CHEMISTRY & BLOOD GAS ORDER LYNDSEY Final Result Performing Organization Address [facility] de Phone Number [facility] [address] [place] [address] * (ABNORMAL) SODIUM (10/25/2008 18:00 EDT) Sodium 148(H) 136 - 145 mEq/L [facility] Blood specimen (specimen) 10/25/2008 18:00 EDT 10/25/2008 18:02 EDT us Christopher Ga MD CHEMISTRY & BLOOD GAS ORDER LYNDSEY Final Result Performing Organization Address [facility] de Phone Number [facility] [address] [place] [address] * (ABNORMAL) SODIUM (10/25/2008 16:00 EDT) Sodium 148(H) 136 - 145 mEq/L [facility] Blood specimen (specimen) 10/25/2008 16:00 EDT 10/25/2008 16:24 EDT us Christopher Ga MD CHEMISTRY & BLOOD GAS ORDER LYNDSEY Final Result Performing Organization Address [facility] de Phone Number [facility] [address] [place] [address] * PORTABLE CHEST 1 VIEW (10/25/2008 12:50 [...] with the findings. us Christopher Ga MD [facility] [place] [place] [facility] HERMES HANNON Final Result * GLUCOSE, SERUM (10/25/2008 12:45 EDT) Glucose, Serum 83 70 - 100 mg/dl [facility] 10/25/2008 12:4 5 EDT 10/25/2008 12:56 EDT Christopher Ga MD CHEMISTRY & BLOOD GAS ORDER LYNDSEY Final Result Performing Organization Address [facility] de Phone Number [facility] [address] [place] [address] * (ABNORMAL) SODIUM (10/25/2008 12:45 EDT) Sodium 148(H) 136 - 145 mEq/L [facility] Blood specimen (specimen) 10/25/2008 12:45 EDT 10/25/2008 12:56 EDT us Christopher Ga MD CHEMISTRY & BLOOD GAS ORDER LYNDSEY Final Result Performing Organization Address [facility] Phone Number [facility] [address] [place] [address] * (ABNORMAL) SODIUM (10/25/2008 10:00 EDT) Sodium 146(H) 136 - 145 mEq/L [facility] Blood specimen (specimen) 10/25/2008 10:00 EDT 10/25/2008 10:07 EDT us Christopher Ga MD CHEMISTRY & BLOOD GAS ORDER LYNDSEY Final Result Performing Organization Address [facility] Phone Number [facility] [address] [place] [address] * OSMOLALITY,URINE (10/25/2008 8:06 EDT) Osmolality, Ur 513 392 - 1090 MOS/KG [facility] 10/25/2008 8:06 EDT 10/25/2008 8:06 EDT us Christopher Ga MD URINALYSIS ORDERABLES Final Result Performing Organization Address [facility] de Phone Number [facility] [address] [place] [address] * SODIUM, URINE RANDOM (10/25/2008 8:06 EDT) Sodium, Ur <5.0 mEq/L [facility] 10/25/2008 8:06 EDT 10/25/2008 8:06 EDT Christopher Ga MD URINALYSIS ORDERABLES Final Result Performing Organization Address [facility] de Phone Number [facility] [address] [place] [address] * (ABNORMAL) OSMOLALITY (10/25/2008 8:04 EDT) Osmolality Cintia 310(H) 280 - 300 MOS/KG [facility] Blood specimen (specimen) 10/25/2008 8:04 EDT 10/25/2008 8:04 EDT Christopher Ga MD CHEMISTRY & BLOOD GAS ORDER LYNDSEY Final Result Performing Organization Address [facility] de Phone Number [facility] [address] [place] [address] * GLUCOSE, SERUM (10/25/2008 8:04 EDT) Glucose, Serum 80 70 - 100 mg/dl [facility] Blood specimen (specimen) 10/25/2008 8:04 EDT 10/25/2008 8:04 EDT Christopher Ga MD CHEMISTRY & BLOOD GAS ORDER LYNDSEY Final Result Performing Organization Address [facility] Phone Number [facility] [address] [place] [address] * (ABNORMAL) ELECTROLYTES (10/25/2008 8:04 EDT) Sodium 148(H) 136 - 145 mEq/L [facility] Potassium 3.8 3.5 - 5.0 mEq/L [facility] Chloride 114(H) 96 - 110 mEq/L [facility] CO2 27 24 - 32 mEq/L [facility] Blood specimen (specimen) 10/25/2008 8:04 EDT 10/25/2008 8:04 EDT us Christopher Ga MD CHEMISTRY & BLOOD GAS ORDER LYNDSEY Final Result Performing Organization Address [facility]/State/ZIP Co de Phone Number [facility] [address] [place] [address] * (ABNORMAL) GLUCOSE, SERUM (10/25/2008 4:49 EDT) Glucose, Serum 101(H) 70 - 100 mg/dl [facility] 10/25/2008 4:49 EDT 10/25/2008 4:49 EDT us Christopher Ga MD CHEMISTRY & BLOOD GAS ORDER LYNDSEY Final Result Performing Organization Address [facility] de Phone Number [facility] [address] [place] [address] * POTASSIUM (10/25/2008 4:49 EDT) Potassium 3.7 3.5 - 5.0 mEq/L [facility] 10/25/2008 4:49 EDT 10/25/2008 4:49 EDT us Christopher Ga MD CHEMISTRY & BLOOD GAS ORDER LYNDSEY Final Result Performing Organization Address [facility] de Phone Number [facility] [address] [place] [address] * CO2 (10/25/2008 4:49 EDT) CO2 25 24 - 32 mEq/L [facility] 10/25/2008 4:49 EDT 10/25/2008 4:49 EDT us Christopher Ga MD CHEMISTRY & BLOOD GAS ORDER LYNDSEY Final Result Performing Organization Address [facility] Co de Phone Number [facility] [address] [place] [address] * (ABNORMAL) CHLORIDE (10/25/2008 4:49 EDT) Chloride 115(H) 96 - 110 mEq/L [facility] 10/25/2008 4:49 EDT 10/25/2008 4:49 EDT us Christopher Ga MD CHEMISTRY & BLOOD GAS ORDER LYNDSEY Final Result Performing Organization Address [facility] de Phone Number [facility] [address] [place] [address] * (ABNORMAL) OSMOLALITY (10/25/2008 4:49 EDT) Osmolality Cintia 309(H) 280 - 300 MOS/KG [facility] 10/25/2008 4:49 EDT 10/25/2008 4:49 EDT us Christopher Ga MD CHEMISTRY & BLOOD GAS ORDER LYNDSEY Final Result Performing Organization Address [facility] de Phone Number [facility] [address] [place] [address] * (ABNORMAL) SODIUM (10/25/2008 4:49 EDT) Sodium 148(H) 136 - 145 mEq/L [facility] 10/25/2008 4:49 EDT 10/25/2008 4:49 EDT us Christopher Ga MD CHEMISTRY & BLOOD GAS ORDER LYNDSEY Final Result Performing Organization Address [facility] Phone Number [facility] [address] [place] [address] * (ABNORMAL) CREATININE (10/25/2008 4:49 EDT) Creatinine 0.69(L) 0.7 - 1.5 mg/dl [facility] GFR, Calculated >60 ml/min/1.7 3m2 [facility] 10/25/2008 4:49 EDT 10/25/2008 4:49 EDT us Christopher Ga MD CHEMISTRY & BLOOD GAS ORDER LYNDSEY Final Result Performing Organization Address [facility] de Phone Number [facility] [address] [place] [address] * BUN (10/25/2008 4:49 EDT) BUN 10 10 - 26 mg/dl [facility] 10/25/2008 4:49 EDT 10/25/2008 4:49 EDT Christopher Ga MD CHEMISTRY & BLOOD GAS ORDER LYNDSEY Final Result Performing Organization Address [facility] Phone Number [facility] [address] [place] [address] * (ABNORMAL) OSMOLALITY,URINE (10/25/2008 3:59 EDT) Pathologist [facility] Osmolality, Ur 143(L) 392 - 1090 MOS/KG [facility] 10/25/2008 3:59 EDT 10/25/2008 3:59 EDT us Christopher Ga MD URINALYSIS ORDERABLES Final Result Performing Organization Address [facility] Phone Number [facility] [address] [place] [address] * SODIUM, URINE RANDOM (10/25/2008 3:59 EDT) Pathologist [facility] Sodium, Ur <5.0 mEq/L [facility] 10/25/2008 3:59 EDT 10/25/2008 3:59 EDT us Christopher Ga MD URINALYSIS ORDERABLES Final Result Performing Organization Address [facility] Phone Number [facility] [address] [place] [address] * OSMOLALITY,URINE (10/25/2008 0:15 EDT) Pathologist [facility] Osmolality, Ur 413 392 - 1090 MOS/KG [facility] 10/25/2008 0:15 EDT 10/25/2008 0:15 EDT Christopher Ga MD URINALYSIS ORDERABLES Final Result [facility] [address] [place] [address] * SODIUM, URINE RANDOM (10/25/2008 0:15 EDT) Pathologist [facility] Sodium, Ur 9.0 mEq/L [facility] 10/25/2008 0:15 EDT 10/25/2008 0:15 EDT us Christopher Ga MD URINALYSIS ORDERABLES Final Result Performing Organization Address [facility] de Phone Number [facility] [address] [place] [address] * (ABNORMAL) GLUCOSE, SERUM (10/25/2008 0:15 EDT) [facility] Glucose, Serum 113(H) 70 - 100 mg/dl [facility] 10/25/2008 0:15 EDT 10/25/2008 0:15 EDT us Christopher Ga MD CHEMISTRY & BLOOD GAS ORDER LYNDSEY Final Result Performing Organization Address [facility] de Phone Number [facility] [address] [place] [address] * (ABNORMAL) OSMOLALITY (10/25/2008 0:15 EDT) [facility] Osmolality Cintia 309(H) 280 - 300 MOS/KG [facility] 10/25/2008 0:15 EDT 10/25/2008 0:15 EDT us Christopher Ga MD CHEMISTRY & BLOOD GAS ORDER LYNDSEY Final Result Performing Organization Address [facility] de Phone Number [facility] [address] [place] [address] * (ABNORMAL) ELECTROLYTES (10/25/2008 0:15 EDT) [facility] Sodium 147(H) 136 - 145 mEq/L [facility] Potassium 3.9 3.5 - 5.0 mEq/L [facility] Chloride 115(H) 96 - 110 mEq/L [facility] CO2 24 24 - 32 mEq/L [facility] 10/25/2008 0:15 EDT 10/25/2008 0:15 EDT us Christopher Ga MD CHEMISTRY & BLOOD GAS ORDER LYNDSEY Final Result Performing Organization Address [facility] Phone Number [facility] [address] [place] [address] * SODIUM, URINE RANDOM (10/24/2008 20:00 EDT) Sodium, Ur 92.0 mEq/L [facility] 10/24/2008 20:0 0 EDT 10/24/2008 20:23 EDT us Christopher Ga MD URINALYSIS ORDERABLES Final Result Performing Organization Address [facility] Phone Number [facility] [address] [place] [address] * OSMOLALITY,URINE (10/24/2008 20:00 EDT) Osmolality, Ur 594 392 - 1090 MOS/KG [facility] 10/24/2008 20:0 0 EDT 10/24/2008 20:23 EDT us Christopher Ga MD URINALYSIS ORDERABLES Final Result Performing Organization Address [facility] Phone Number [facility] [address] [place] [address] * (ABNORMAL) OSMOLALITY (10/24/2008 20:00 EDT) Osmolality Cint[place] 319(H) 280 - 300 MOS/KG [facility] 10/24/2008 20:0 0 EDT 10/24/2008 20:20 EDT us Christopher Ga MD CHEMISTRY & BLOOD GAS ORDER LYNDSEY Final Result Performing Organization Address [facility] Phone Number [facility] [address] [place] [address] * SODIUM, URINE RANDOM (10/23/2008 22:30 EDT) Sodium, Ur 70.0 mEq/L [facility] Comment:Sample retested, res ult confirmed 10/23/2008 22:3 0 EDT 10/23/2008 22:33 EDT us Christopher Ga MD URINALYSIS ORDERABLES Final Result Performing Organization Address [facility] de Phone Number [facility] [address] [place] [address] * OSMOLALITY, URINE (10/23/2008 22:30 EDT) Osmolality, Ur 426 392 - 1090 MOS/KG [facility] 10/23/2008 22:3 0 EDT 10/23/2008 22:33 EDT us Christopher Ga MD URINALYSIS ORDERABLES Final Result Performing Organization Address [facility] Phone Number [facility] [address] [place] [address] * (ABNORMAL) URINALYSIS, CHEMICAL (10/23/2008 22:30 EDT) Color, UA Yellow [facility] Clarity, UA Clear [facility] Glucose, UA Norm NORM [facility] Bilirubin, UA Neg NEG [facility] Ketones, UA Neg NEG [facility] Specific [place], Urine 1.015 1.005 - 1.02 [facility] Blood, UA Trace(A) NEG [facility] pH, UA 5.0 5.0 - 9.0 [facility] Protein, UA Neg NEG [facility] Urobilinogen, UA Norm NORM mg/dL [facility] Nitrite, UA Neg NEG [facility] Leuk Esterase Small(A) NEG [facility] 10/23/2008 22:3 0 EDT 10/23/2008 22:34 EDT us Christopher Ga MD URINALYSIS ORDERABLES Final Result Performing Organization Address [facility]/ZIP Co de Phone Number [facility] [address] [place] [address] * URINE MICROSCOPIC (10/23/2008 22:30 EDT) WBC, UA 1 to 5 0 - 5 /HPF [facility] RBC, UA less than 1 0 - 5 /HPF [facility] [...] 10/23/2008 22:3 0 EDT 10/23/2008 22:34 EDT us Christopher Ga MD URINALYSIS ORDERABLES Final Result Performing Organization Address [facility] Co de Phone Number [facility] [address] [place] [address] * (ABNORMAL) POTASSIUM (10/23/2008 20:49 EDT) Potassium 6.1(HH) 3.5 - 5.0 mEq/L [facility] Comment: Hemolysis may elevate potassium result. Slight hemolysis QNS to repeat 10/23/2008 20:4 9 EDT 10/23/2008 20:54 EDT us Christopher Ga MD CHEMISTRY & BLOOD GAS ORDER LYNDSEY Final Result Performing Organization Address [facility] Co de Phone Number [facility] [address] [place] [address] * CREATININE (10/23/2008 20:49 EDT) Creatinine 0.80 0.7 - 1.5 mg/dl [facility] Comment:Slight hemolysis GFR, Calculated >60 ml/min/1.7 3m2 [facility] Comment:Slight hemolysis 10/23/2008 20:4 9 EDT 10/23/2008 20:54 EDT us Christopher Ga MD CHEMISTRY & BLOOD GAS ORDER LYNDSEY Final Result Performing Organization Address [facility] de Phone Number [facility] [address] [place] [address] * BUN (10/23/2008 20:49 EDT) BUN 13 10 - 26 mg/dl [facility] Comment: Results may be affected due to hemolysis. Slight hemolysis 10/23/2008 20:4 9 EDT 10/23/2008 20:54 EDT us Christopher Ga MD CHEMISTRY & BLOOD GAS ORDER LYNDSEY Final Result Performing Organization Address [facility] de Phone Number [facility] [address] [place] [address] * (ABNORMAL) SODIUM (10/23/2008 20:49 EDT) Sodium 153(H) 136 - 145 mEq/L [facility] Comment:Slight hemolysis 10/23/2008 20:4 9 EDT 10/23/2008 20:54 EDT us Christopher Ga MD CHEMISTRY & BLOOD GAS ORDER LYNDSEY Final Result Performing Organization Address [facility] de Phone Number [facility] [address] [place] [address] * (ABNORMAL) ELECTROLYTES (10/23/2008 16:00 EDT) Sodium 150(H) 136 - 145 mEq/L [facility] Potassium 4.0 3.5 - 5.0 mEq/L [facility] Chloride 117(H) 96 - 110 mEq/L [facility] CO2 22(L) 24 - 32 mEq/L [facility] 10/23/2008 16:0 0 EDT 10/23/2008 16:07 EDT Christopher Ga MD CHEMISTRY & BLOOD GAS ORDER LYNDSEY Final Result Performing Organization Address [facility] de Phone Number [facility] [address] [place] [address] * GLUCOSE, SERUM (10/23/2008 8:45 EDT) Glucose, Serum 79 70 - 100 mg/dl [facility] 10/23/2008 8:45 EDT 10/23/2008 9:01 EDT Thad Marroquin MD, MSc CHEMISTRY & BLOOD GAS ORDER LYNDSEY Final Result Performing Organization Address [facility] de Phone Number [facility] [address] [place] [address] * CREATININE (10/23/2008 8:45 EDT) Creatinine 0.80 0.7 - 1.5 mg/dl [facility] GFR, Calculated >60 ml/min/1.7 3m2 [facility] 10/23/2008 8:45 EDT 10/23/2008 9:01 EDT Thad Marroquin MD, MSc CHEMISTRY & BLOOD GAS ORDER LYNDSEY Final Result Performing Organization Address [facility] de Phone Number [facility] [address] [place] [address] * BUN (10/23/2008 8:45 EDT) BUN 10 10 - 26 mg/dl [facility] 10/23/2008 8:45 EDT 10/23/2008 9:01 EDT Thad Marroquin MD, MSc CHEMISTRY & BLOOD GAS ORDER LYNDSEY Final Result Performing Organization Address [facility] Co de Phone Number [facility] [address] [place] [address] * (ABNORMAL) ELECTROLYTES (10/23/2008 8:45 EDT) Sodium 148(H) 136 - 145 mEq/L [facility] Potassium 3.4(L) 3.5 - 5.0 mEq/L [facility] Chloride 117(H) 96 - 110 mEq/L [facility] CO2 22(L) 24 - 32 mEq/L [facility] 10/23/2008 8:45 EDT 10/23/2008 9:01 EDT us Thad Marroquin MD MSc CHEMISTRY & BLOOD GAS ORDER LYNDSEY Final Result [facility] [address] [place] [address] * (ABNORMAL) HEMAGRAM AND DIFFERENTIAL (10/23/2008 8:45 EDT) Pathologist [facility] WBC 2.96(L) 4.0 - 10.4 K/cmm [facility] RBC 4.48 4.36 - 5.78 M/cmm [facility] Hemoglobin 11.5(L) 13.8 - 17.3 gm/dl [facility] HCT 33.7(L) 39.5 - 50.2 % [facility] MCV 75(L) 81 - 95 fl [facility] MCH 25.6(L) 27.6 - 33.0 pg [facility] MCHC 34.1 32.8 - 36.4 gm/dl [facility] PLT 97(L) 141 - 320 K/cmm [facility] RDW-CV 17.8(H) 11.8 - 14.1 % [facility] Neutrophils 78.4 45.5 - 79.7 % [facility] Lymphocytes 14.5(L) 15.0 - 46.8 % [...] [facility] Type of Diff: Automated [facility] 10/23/2008 8:45 EDT 10/23/2008 9:01 EDT Thad Marroquin MD, MSc PACKAGES & DNA PROBE ORDERA BLES Final Result Performing Organization Address [facility] Co de Phone Number [facility] [address] [place] [address] * GLUCOSE, SERUM (10/23/2008 6:15 EDT) Glucose, Serum 80 70 - 100 mg/dl [facility] 10/23/2008 6:15 EDT 10/23/2008 6:35 EDT Thad Marroquin MD MSc CHEMISTRY & BLOOD GAS ORDER LYNDSEY Final Result Performing Organization Address [facility] de Phone Number [facility] [address] [place] [address] * CREATININE (10/23/2008 6:15 EDT) Creatinine 0.80 0.7 - 1.5 mg/dl [facility] GFR, Calculated >60 ml/min/1.7 3m2 [facility] 10/23/2008 6:15 EDT 10/23/2008 6:35 EDT us Thad Marroquin MD MSc CHEMISTRY & BLOOD GAS ORDER LYNDSEY Final Result Performing Organization Address [facility] Co de Phone Number [facility] [address] [place] [address] * BUN (10/23/2008 6:15 EDT) BUN 11 10 - 26 mg/dl [facility] 10/23/2008 6:15 EDT 10/23/2008 6:35 EDT Thad Marroquin MD MSc CHEMISTRY & BLOOD GAS ORDER LYNDSEY Final Result Performing Organization Address [facility] de Phone Number [facility] [address] [place] [address] * (ABNORMAL) ELECTROLYTES (10/23/2008 6:15 EDT) Pathologist [facility] Sodium 146(H) 136 - 145 mEq/L [facility] Potassium 2.6(LL) 3.5 - 5.0 mEq/L [facility] Comment:Sample retested, res ult confirmed Chloride 112(H) 96 - 110 mEq/L [facility] CO2 23(L) 24 - 32 mEq/L [facility] 10/23/2008 6:15 EDT 10/23/2008 6:35 EDT Thad Marroquin MD, MSc CHEMISTRY & BLOOD GAS ORDER LYNDSEY Final Result Performing Organization Address [facility] de Phone Number [facility] [address] [place] [address] * (ABNORMAL) HEMAGRAM AND DIFFERENTIAL (10/23/2008 6:15 EDT) Pathologist [facility] WBC 1.91(L) 4.0 - 10.4 K/cmm [facility] [...] LAB RDW-CV 18.7(H) 11.8 - 14.1 % [facility] Neutrophils 59.0 45.5 - 79.7 % [...] LAB 10/23/2008 6:15 EDT 10/23/2008 6:35 EDT us Thad Marroquin MD MSc PACKAGES & DNA PROBE ORDERA BLES Final Result Performing Organization Address [facility] Co de Phone Number [facility] [address] [place] [address] * GLUCOSE, GLUCOMETER (10/23/2008 6:02 EDT) Glucose, Fingerstick 89 70 - 100 mg/dl [facility] [employer] ID [id number] Test Performed by Nursing Services [facility] 10/23/2008 6:02 EDT 10/25/2008 4:28 EDT us Christopher Ga MD CHEMISTRY & BLOOD GAS ORDER LYNDSEY Final Result Performing Organization Address [facility] Co de Phone Number [facility] [address] [place] [address] * (ABNORMAL) BLOOD GAS, G3 ISTAT (10/23/2008 [...] [facility]AE R [facility] Temperature 37.0 C [facility] FIO2 .28 [facility] Sample Type VENOUS [facility] community service aide [place] [id number] Test Performed by Respiratory For non-arterial reference ranges, please see ISTAT procedure. [facility] 10/23/2008 5:49 EDT 10/23/2008 5:58 EDT us Thad Marroquin MD MSc CHEMISTRY & BLOOD GAS ORDER LYNDSEY Final Result Performing Organization Address [facility] de Phone Number [facility] [address] [place] [address] * (ABNORMAL) BLOOD GAS, G3 ISTAT (10/23/2008 2:13 EDT) pH, i-STAT 7.34(L) 7.35 - 7.45 [facility] pCO2, i-STAT 43 35 - 45 mmHg [facility] pO2, i-STAT 81(L) 85 - 100 mmHg [facility] TCO2, i-STAT 24 mEq/L [facility] O2 Saturation 95 % TRUE [facility] Base Deficit 3 TRUEEmerald Hoffman [facility] Sample Type NOT GIVEN [facility] [place] [id number] Test performed by Chemistry [facility] 10/23/2008 2:13 EDT 10/23/2008 2:19 EDT us Thad Marroquin MD, MSc CHEMISTRY & BLOOD GAS ORDER LYNDSEY Final Result Performing Organization Address [facility] Co de Phone Number [facility] [address] [place] [address] * (ABNORMAL) ELECTROLYTES (10/23/2008 2:00 EDT) Sodium 146(H) 136 - 145 mEq/L [facility] Potassium 3.8 3.5 - 5.0 mEq/L [facility] Chloride 112(H) 96 - 110 mEq/L [facility] CO2 24 24 - 32 mEq/L [facility] 10/23/2008 2:00 EDT 10/23/2008 2:10 EDT Tahd Marroquin MD, MSc CHEMISTRY & BLOOD GAS ORDER LYNDSEY Final Result Performing Organization Address [facility] de Phone Number [facility] [address] [place] [address] * ELECTROLYTES (10/23/2008 2:00 EDT) 10/23/2008 2:00 EDT 10/23/2008 2:07 EDT Thad Marroquin MD, MSc CHEMISTRY & BLOOD GAS ORDER LYNDSEY Final Result Performing Organization Address [facility] de Phone Number [facility] [address] [place] [address] * BACTERIAL CULTURE, BLOOD (10/23/2008 2:00 EDT) Pathologist [facility] Specimen Description Blood Right Arm Total volume of blood collected: 6 ml Pediatric bottle received Volume of blood collected may not be adequate for detection of bacteremia/se pticemia. [facility] Result No growth [facility] Report Status Final [id number] [facility] 10/23/2008 2:00 EDT 10/23/2008 7:45 EDT Thad Marroquin MD MSc MICROBIOLOGY - GENERAL ORDE RABLES Final Result Performing Organization Address [facility] de Phone Number [facility] [address] [place] [address] * (ABNORMAL) GLUCOSE, GLUCOMETER (10/22/2008 21:12 EDT) Glucose, Fingerstick 122(H) 70 - 100 mg/dl [facility] [employer] [place] [id number] Test Performed by Nursing Services [facility] 10/22/2008 21:1 2 EDT 10/22/2008 21:23 EDT Christopher Ga MD CHEMISTRY & BLOOD GAS ORDER LYNDSEY Final Result Performing Organization Address [facility]/ZIP Co de Phone Number [facility] [address] [place] [address] * (ABNORMAL) GLUCOSE, SERUM (10/22/2008 18:07 EDT) Glucose, Serum 109(H) 70 - 100 mg/dl [facility] 10/22/2008 18:0 7 EDT 10/22/2008 18:07 EDT us Christopher Ga MD CHEMISTRY & BLOOD GAS ORDER LYNDSEY Final Result Performing Organization Address [facility] de Phone Number [facility] [address] [place] [address] * ELECTROLYTES (10/22/2008 18:07 EDT) Sodium 141 136 - 145 mEq/L [facility] Potassium 3.7 3.5 - 5.0 mEq/L [facility] Chloride 108 96 - 110 mEq/L [facility] CO2 24 24 - 32 mEq/L [facility] 10/22/2008 18:0 7 EDT 10/22/2008 18:07 EDT us Christopher Ga MD CHEMISTRY & BLOOD GAS ORDER LYNDSEY Final Result Performing Organization Address [facility] de Phone Number [facility] [address] [place] [address] * (ABNORMAL) ELECTROLYTES (10/22/2008 11:15 EDT) Sodium 142 136 - 145 mEq/L [facility] Potassium 4.2 3.5 - 5.0 mEq/L [facility] Chloride 107 96 - 110 mEq/L [facility] CO2 23(L) 24 - 32 mEq/L [facility] 10/22/2008 11:1 5 EDT 10/22/2008 11:15 EDT us Christopher Ga MD CHEMISTRY & BLOOD GAS ORDER LYNDSEY Final Result Performing Organization Address [facility] Phone Number [facility] [address] [place] [address] * (ABNORMAL) GLUCOSE, GLUCOMETER (10/22/2008 11:05 EDT) Glucose, Fingerstick 114(H) 70 - 100 mg/dl [facility] [employer] ID [id number] Test Performed by Nursing Services [facility] 10/22/2008 11:0 5 EDT 10/22/2008 23:16 EDT Thad Marroquin MD, MSc CHEMISTRY & BLOOD GAS ORDER LYNDSEY Final Result Performing Organization Address [facility] Phone Number [facility] [address] [place] [address] * (ABNORMAL) ELECTROLYTES (10/22/2008 7:36 EDT) Sodium 134(L) 136 - 145 mEq/L [facility] Potassium 4.5 3.5 - 5.0 mEq/L [facility] Chloride 106 96 - 110 mEq/L [facility] CO2 21(L) 24 - 32 mEq/L [facility] 10/22/2008 7:36 EDT 10/22/2008 7:36 EDT Christopher Ga MD CHEMISTRY & BLOOD GAS ORDER LYNDSEY Final Result Performing Organization Address [facility] Phone Number [facility] [address] [place] [address] * (ABNORMAL) GLUCOSE, GLUCOMETER (10/22/2008 7:26 EDT) Glucose, Fingerstick 124(H) 70 - 100 mg/dl [facility] [employer] [place] [id number] Test Performed by Nursing Services [facility] 10/22/2008 7:26 EDT 10/22/2008 23:16 EDT Thad Marroquin MD MSc CHEMISTRY & BLOOD GAS ORDER LYNDSEY Final Result Performing Organization Address [facility] de Phone Number [facility] [address] [place] [address] * GLUCOSE, SERUM (10/22/2008 3:29 EDT) Glucose, Serum 95 70 - 100 mg/dl [facility] 10/22/2008 3:29 EDT 10/22/2008 3:29 EDT us Christopher Ga MD CHEMISTRY & BLOOD GAS ORDER LYNDSEY Final Result Performing Organization Address [facility] de Phone Number [facility] [address] [place] [address] * (ABNORMAL) PTT (10/22/2008 3:29 EDT) PTT 39(H) 20 - 35 secs [facility] Comment:Therapeutic Heparin range: 60-100 seconds 10/22/2008 3:29 EDT 10/22/2008 3:29 EDT us Christopher Ga MD HEMATOLOGY & PF4 ORDERABLES Final Result Performing Organization Address [facility] de Phone Number [facility] [address] [place] [address] * (ABNORMAL) PROTIME (10/22/2008 3:29 EDT) Pro Time 15.4(H) 12.0 - 15.0 secs [facility] I.N.R. 1.2(H) 0.9 - 1.1 Ratio [facility] Comment: Moderate Intensity Coumadin INR = 2.0-3.0 Adjustments in anticoagulant therapy dose should be based upon the INR and NOT the Pro Time. 10/22/2008 3:29 EDT 10/22/2008 3:29 EDT us Christopher Ga MD HEMATOLOGY & PF4 ORDERABLES Final Result Performing Organization Address [facility] de Phone Number [facility] [address] [place] [address] * PHOSPHORUS (10/22/2008 3:29 EDT) Phosphorus 3.6 2.5 - 4.5 mg/dl [facility] 10/22/2008 3:29 EDT 10/22/2008 3:29 EDT us Christopher Ga MD CHEMISTRY & BLOOD GAS ORDER LYNDSEY Final Result Performing Organization Address [facility] de Phone Number [facility] [address] [place] [address] * (ABNORMAL) MAGNESIUM (10/22/2008 3:29 EDT) Magnesium 1.4(L) 1.7 - 2.8 mg/dl [facility] 10/22/2008 3:29 EDT 10/22/2008 3:29 EDT us Christopher Ga MD CHEMISTRY & BLOOD GAS ORDER LYNDSEY Final Result Performing Organization Address [facility] Phone Number [facility] [address] [place] [address] * (ABNORMAL) CREATININE (10/22/2008 3:29 EDT) Creatinine 0.60(L) 0.7 - 1.5 mg/dl [facility] GFR, Calculated >60 ml/min/1.7 3m2 [facility] 10/22/2008 3:29 EDT 10/22/2008 3:29 EDT us Christopher Ga MD CHEMISTRY & BLOOD GAS ORDER LYNDSEY Final Result Performing Organization Address [facility] de Phone Number [facility] [address] [place] [address] * (ABNORMAL) BUN (10/22/2008 3:29 EDT) BUN 6(L) 10 - 26 mg/dl [facility] 10/22/2008 3:29 EDT 10/22/2008 3:29 EDT us Christopher Ga MD CHEMISTRY & BLOOD GAS ORDER LYNDSEY Final Result Performing Organization Address [facility] Co de Phone Number [facility] [address] [place] [address] * (ABNORMAL) ELECTROLYTES (10/22/2008 3:29 EDT) Sodium 132(L) 136 - 145 mEq/L [facility] Potassium 5.3(H) 3.5 - 5.0 mEq/L [facility] Chloride 105 96 - 110 mEq/L [facility] CO2 21(L) 24 - 32 mEq/L [facility] 10/22/2008 3:29 EDT 10/22/2008 3:29 EDT us Christopher Ga MD CHEMISTRY & BLOOD GAS ORDER LYNDSEY Final Result Performing Organization Address [facility] de Phone Number [facility] [address] [place] [address] * (ABNORMAL) HEMAGRAM (10/22/2008 3:29 EDT) WBC 3.60(L) 4.0 - 10.4 K/cmm [facility] RBC 4.25(L) 4.36 - 5.78 M/cmm [facility] Hemoglobin 10.8(L) 13.8 - 17.3 gm/dl [facility] HCT 31.8(L) 39.5 - 50.2 % [facility] MCV 75(L) 81 - 95 fl [facility] MCH 25.5(L) 27.6 - 33.0 pg [facility] MCHC 34.1 32.8 - 36.4 gm/dl [facility] PLT 111(L) 141 - 320 K/cmm [facility] RDW-CV 17.1(H) 11.8 - 14.1 % [facility] 10/22/2008 3:29 EDT 10/22/2008 3:29 EDT us Christopher Ga MD HEMATOLOGY & PF4 ORDERABLES Final Result Performing Organization Address [facility] de Phone Number [facility] [address] [place] [address] * (ABNORMAL) OSMOLALITY, URINE (10/22/2008 0:43 EDT) Osmolality, Ur 64(L) 392 - 1090 MOS/KG [facility] 10/22/2008 0:43 EDT 10/22/2008 0:43 EDT us Christopher Ga MD URINALYSIS ORDERABLES Final Result Performing Organization Address [facility] Phone Number [facility] [address] [place] [address] * SODIUM, URINE RANDOM (10/22/2008 0:43 EDT) Sodium, Ur <5.0 mEq/L [facility] 10/22/2008 0:43 EDT 10/22/2008 0:43 EDT us Christopher Ga MD URINALYSIS ORDERABLES Final Result Performing Organization Address [facility] Phone Number [facility] [address] [place] [address] * GLUCOSE, GLUCOMETER (10/22/2008 0:19 EDT) Pathologist [facility] Glucose, Fingerstick 87 70 - 100 mg/dl [facility] [employer] ID [id number] Test Performed by Nursing Services [facility] 10/22/2008 0:19 EDT 10/22/2008 23:16 EDT us Thad Marroquin MD MSc CHEMISTRY & BLOOD GAS ORDER LYNDSEY Final Result Performing Organization Address [facility] de Phone Number [facility] [address] [place] [address] * (ABNORMAL) OSMOLALITY (10/22/2008 0:00 EDT) Pathologist [facility] Osmolality Cintia 273(L) 280 - 300 MOS/KG [facility] 10/22/2008 10/22/2008 0:2 2 EDT us Christopher Ga MD CHEMISTRY & BLOOD GAS ORDER LYNDSEY Final Result Performing Organization Address [facility] Co de Phone Number [facility] [address] [place] [address] * (ABNORMAL) ELECTROLYTES (10/22/2008 0:00 EDT) Sodium 127(L) 136 - 145 mEq/L [facility] Potassium 5.5(H) 3.5 - 5.0 mEq/L [facility] Chloride 101 96 - 110 mEq/L [facility] CO2 21(L) 24 - 32 mEq/L [facility] 10/22/2008 10/22/2008 0:2 2 EDT us Christopher Ga MD CHEMISTRY & BLOOD GAS ORDER LYNDSEY Final Result Performing Organization Address City/[facility] de Phone Number [facility] [address] [place] [address] documented in this encounter Visit Diagnoses Not on filedocumented in this encounter Care Teams Gaming Department Head Relationship Specialty Start Date End Date Corin Skinner MD [address] [place] [phone] PCP - General 10/24/08 08/21/09 documented as of this encounter
--- OUTSIDE RECORDS SUMMARY | 2024-06-28 13:51 | XMS_ITS | Encounter Summary ---
Author Organization [facility] Address [address] [place] [address] Care Team Providers Care Enrollment Services Dean Name Role Phone Corin Skinner MD Primary Care Provider Encounter Details Date Type Department Care Team (Late st Contact Info) Description 10/21/2008 Before PRISM Converted Visit (Maple) [facility] - Maple conversion [address] [place] [address] Christopher Ga MD [address] [place] [phone] Social History Tobacco Use Types Packs/Day [...] 13:40 EST Office Visit [facility] Endocrinology - [facility] [address] [place] [address] Wilder Zaidi DO 62 [facility] [address] [place] [address] 09/09/2024 10:20 EST Office Visit [facility] Endocrinology - [facility] [address] [place] [address] Day Littlejohn MD PhD 62 [facility] [address] [place] [phone] documented as of this encounter Procedures Procedure Name Priority Date/Time Associated Diagnosis Comments GLUCOSE, GLUCOMETER Routine 10/21/2008 2 1:18 EDT documented in this encounter Results * GLUCOSE, GLUCOMETER (10/21/2008 21:18 EDT) Glucose, Fingerstick 95 70 - 100 mg/dl [facility] Rn Infusion ID [id number] Test Performed by Nursing Services [facility] 10/21/2008 21:1 8 EDT 10/21/2008 23:29 EDT us Christopher Ga MD CHEMISTRY & BLOOD GAS ORDER LYNDSEY Final Result [facility] [address] [place] [address] documented in this encounter Visit Diagnoses Not on filedocumented in this encounter Care Teams Enrollment Services Dean Relationship Specialty Start Date End Date Corin Skinner MD [address] [place] [phone] PCP - General 10/24/08 08/21/09 documented as of this encounter
--- OUTSIDE RECORDS SUMMARY | 2024-06-28 13:51 | XMS_ITS | Encounter Summary ---
Author Organization [facility] Address [address] [place] [address] Care Team Providers Care Medical Surgery Nurse Name Role Phone Corin Skinner MD Primary Care Provider Encounter Details Date Type Department Care Team (Late st Contact Info) Description 10/21/2008 Before PRISM Converted Visit (Maple) [facility] - Maple conversion [address] [place] [address] Christopher Ga MD [address] [place] [phone] Social History Tobacco Use Types Packs/Day [...] Visit [facility] Endocrinology - [facility] [address] [place] [address] Wilder Zaidi DO 62 [facility] [address] [place] [address] 09/09/2024 10:20 EST Office Visit [facility] Endocrinology - [facility] [address] [place] [address] Day Littlejohn MD PhD 62 [facility] [address] [place] [phone] documented as of this encounter Procedures Procedure Name Priority Date/Time Associated Diagnosis Comments GLUCOSE, GLUCOMETER Routine 10/21/2008 2 2:27 EDT documented in this encounter Results * (ABNORMAL) GLUCOSE, GLUCOMETER (10/21/2008 22:27 EDT) Glucose, Fingerstick 103(H) 70 - 100 mg/dl [facility] Individual Pension Consultant ID [id number] Test Performed by Nursing Services [facility] 10/21/2008 22:2 7 EDT 10/21/2008 23:30 EDT us Christopher Ga MD CHEMISTRY & BLOOD GAS ORDER LYNDSEY Final Result [facility] [address] [place] [address] documented in this encounter Visit Diagnoses Not on filedocumented in this encounter Care Teams Medical Surgery Nurse Relationship Specialty Start Date End Date Corin Skinner MD [address] [place] [phone] PCP - General 10/24/08 08/21/09 documented as of this encounter
--- OUTSIDE RECORDS SUMMARY | 2024-06-28 13:52 | XMS_ITS | Encounter Summary ---
Author Organization [facility] Address [address] [place] [address] Care Team Providers Care Sales Engineering Manager Name Role Phone Corin Skinner MD Primary Care Provider [phone] Encounter Details Date Type Department Care Team (Late st Contact Info) Description 10/21/2008 Before PRISM Converted Visit (Maple) [facility] - Maple conversion [address] [place] [address] Christopher Ga MD [address] [place] [phone] Social History [...] Office Visit [facility] Endocrinology - [facility] [address] [place] [address] Wilder Zaidi DO 62 [facility] [address] [place] [address] 09/09/2024 10:20 EST Office Visit [facility] Endocrinology - [facility] [address] [place] [address] Day Littlejohn MD PhD 62 [facility] [address] [place] [phone] documented as of this encounter Procedures Procedure Name Priority Date/Time Associated Diagnosis Comments SMEAR REVIEW Routine 10/21/2008 22:35 EDT documented in this encounter Results * SMEAR REVIEW (10/21/2008 22:35 EDT) Platelet Morphology 1+ Large platelets [facility] 10/21/2008 22:3 5 EDT 10/21/2008 22:35 EDT us Christopher Ga MD HEMATOLOGY & PF4 ORDERABLES Final Result [facility] [address] [place] [address] documented in this encounter Visit Diagnoses Not on filedocumented in this encounter Care Teams Sales Engineering Manager Relationship Specialty Start Date End Date Corin Skinner MD [address] [place] [phone] PCP - General 10/24/08 08/21/09 documented as of this encounter
--- OUTSIDE RECORDS SUMMARY | 2024-06-28 13:52 | XMS_ITS | Encounter Summary ---
Author Organization [facility] Address [address] [place] [address] Care Team Providers Care Motor Racer Name Role Phone Corin Skinner MD Primary Care Provider Encounter Details Date Type Department Care Team (Late st Contact Info) Description 10/21/2008 Before PRISM Converted Visit (Maple) [facility] - Maple conversion [address] [place] [address] Christopher Ga MD [address] [place] [phone] Social History Tobacco Use Types Packs/Day [...] Description 07/06/2024 13:40 EST Office Visit [facility] Endocrinology - [facility] [address] [place] [address] Wilder Zaidi DO 62 [facility] [address] [place] [address] 09/09/2024 10:20 EST Office Visit [facility] Endocrinology - [facility] [address] [place] [address] Day Littlejohn MD PhD 62 [facility] [address] [place] [phone] documented as of this encounter Procedures Procedure Name Priority Date/Time Associated Diagnosis Comments FIBRINOGEN Routine 10/21/2008 21:00 EDT documented in this encounter Results * (ABNORMAL) FIBRINOGEN (10/21/2008 21:00 EDT) Fibrinogen 425(H) 220 - 410 mg/dl [facility] 10/21/2008 21:0 0 EDT 10/21/2008 21:17 EDT us Christopher Ga MD HEMATOLOGY & PF4 ORDERABLES Final Result [facility] [address] [place] [address] documented in this encounter Visit Diagnoses Not on filedocumented in this encounter Care Teams Motor Racer Relationship Specialty Start Date End Date Corin Skinner MD [address] [place] [phone] PCP - General 10/24/08 08/21/09 documented as of this encounter
--- OUTSIDE RECORDS SUMMARY | 2024-06-28 13:52 | XMS_ITS | Encounter Summary ---
Author Organization [facility] Address [address] [place] [address] Care Team Providers Care Aerial Applicator Pilot Name Role Phone Unavailable Primary Care Provider Unavailabl e Encounter Details Date Type Department Care Team (Late st Contact Info) Description 07/03/2008 16:20 EST - 07/05/2008 11:59 EST Hospital Encounter [facility] [address] [place] [address] Jodi Parr MD 111 [facility] [place] [address] [place] [phone] Arcadio Gamboa MD 111 [facility], [address] [place] [phone] Discharge Disposition: Home-Health Care Svc Social History [...] 12/13/2008 2321 EDT HISS DISCHARGE SUMMARY ADDRESS: [address] [place] [phone] PHONE: [phone] ATTENDING PHYSICIAN: JODI PARR MD ADDRESS: [address] [place] [address] PHONE: [phone] REFERRING PHYSICIAN: DOCTOR MARGARITA MD ADDRESS: PHONE: [...] home health services - Nursing, PT, OT, DRIVEWAY ATTENDANT ALLERGIES: The following allergies were reported by [...] 12) POTASSIUM CHLORIDE / (kcl ext-rel tab (detention)) 20MEQ EXTENDED RELEASE TABLET, 3 TIMES A DAY, BY MOUTH MEDICATIONS YOU WERE TAKING PRIOR TO ADMISSION THAT SHOULD BE STOPPED: NONE HERBAL REMEDIES, NUTRITIONAL SUPPLEMENTS, AND JDUE-UJJ-[id number] MEDICATIONS that have not been prescribed by a physician may have significant adverse side effect or may interfere with the medications that have been prescribed for you. If you are taking herbal remedies, nutritional supplements, or ijfv-ule-tbpmqxg medications you are strongly encouraged to discontinue [...] status change was due to seizure or JOURNEYMAN WELDER infection. Miguel Angel was continued on home [...] You have a follow up with Dr. dEwards on 07/11 [facility]: Previously followed by: [facility] __ Initial call by: _Voice mail to Agnes on 07/04/08 _ AGENCY: [facility] [phone] fax [phone] cc: Doctor Demarco at [facility] END OF REPORT D: YAN KHAN MD P - ZOHDocument ID: [id number] documented in this encounter Discharge Disposition Disposition [...] seems outstanding from the report of the parentsto residents at intake here. We spent over half of a 25-minute visit in coordination of care, including review of testing, symptom management, and plans/contingencies for followup as outlined above. I appreciate the chance to see Miguel Angel and hope the above is helpful. Sincerely, Signed by Lc Cheng MD 07/06/2008 13:44 Lc Cheng MD - Lc Cheng MD P - MH Job ID: [id number] Document ID: [id number] cc: MD Yan Walker MD Christa M [...] status. I doubt this is related to JOURNEYMAN WELDER infection or other systemic infection, especially considering [...] MD - Lc Cheng MD P - Job ID: [id number] Document ID: [id number] cc: MD Corin Walker MD Christa M Zehle, MD documented in this encounter Plan of Treatment Upcoming Encounters Date Type Department Care Team (Late st Contact Info) Description 07/06/2024 13:40 EST Office Visit [facility] Endocrinology - [facility] [address] [place] [address] Wilder Zaidi, 62 [facility] [address] [place] [address] 09/09/2024 10:20 EST Office Visit [facility] Endocrinology - [facility] [address] [place] [address] Day Littlejohn MD PhD [address] [place] [address] [place] [phone] documented as of this encounter Procedures [...] EST) Sodium 144 136 - 145 mEq/L [facility] Potassium 4.0 3.5 - 5.0 mEq/L [facility] Chloride 109 96 - 110 mEq/L [facility] CO2 25 24 - 32 mEq/L [facility] 07/04/2008 20:1 5 EST 07/04/2008 20:23 EST us Jodi Parr MD CHEMISTRY & BLOOD GAS ORDERABLE S Final Result Performing Organization Address [facility] de Phone Number [facility] [address] [place] [address] * ELECTROLYTES (07/04/2008 8:15 EST) Sodium 144 136 - 145 mEq/L [facility] Potassium 3.8 3.5 - 5.0 mEq/L [facility] Chloride 107 96 - 110 mEq/L [facility] CO2 24 24 - 32 mEq/L [facility] 07/04/2008 8:15 EST 07/04/2008 8:44 EST us Jodi Parr MD CHEMISTRY & BLOOD GAS ORDERABLE S Final Result Performing Organization Address [facility] de Phone Number [facility] [address] [place] [address] * (ABNORMAL) ELECTROLYTES (07/03/2008 20:00 EST) Sodium 143 136 - 145 mEq/L [facility] Potassium 4.7 3.5 - 5.0 mEq/L [facility] Chloride 104 96 - 110 mEq/L [facility] CO2 22(L) 24 - 32 mEq/L [facility] 07/03/2008 20:0 0 EST 07/03/2008 20:34 EST us Jodi Parr MD CHEMISTRY & BLOOD GAS ORDERABLE S Final Result Performing Organization Address [facility] de Phone Number [facility] [address] [place] [address] * CULTURE IF UA POSITIVE (07/03/2008 18:45 EST) Culture if Indicated Culture not indicated by urinalysis results. [facility] 07/03/2008 18:4 5 EST 07/03/2008 19:53 EST Jodi Parr MD MICROBIOLOGY - GENERAL ORDERABL ES Final Result Performing Organization Address [facility] de Phone Number [facility] [address] [place] [address] * DRUG SCREEN 6 (07/03/2008 18:45 EST) Amphetamine Screen, Urine Negative Screen Suitable for medical purposes only. Will not detect all drugs within class. Cutoff = 1000 ng/ml [facility] Barbiturate Screen, Urine Negative Screen Suitable for medical purposes only. Will not detect all drugs within class. Cutoff = 300 ng/ml [facility] Benzodiazepine Screen, Urine Presumptive positive, interpret [...] 07/03/2008 18:4 5 EST 07/03/2008 19:53 EST us Jodi Parr MD URINALYSIS ORDERABLES Final Res ult Performing Organization Address City/[facility] Co de Phone Number [facility] [address] [place] [address] * UA REFLEX (07/03/2008 18:45 EST) UA Billing Microscopic not indicated. [facility] 07/03/2008 18:4 5 EST 07/03/2008 19:53 EST us Jodi Parr MD URINALYSIS ORDERABLES Final Res ult Performing Organization Address [facility] Co de Phone Number [facility] [address] [place] [address] * (ABNORMAL) URINALYSIS, CHEMICAL (07/03/2008 18:45 EST) Color, UA Yellow [facility] Clarity, UA Clear [facility] Glucose, UA Norm NORM [facility] Bilirubin, UA Neg NEG [facility] Ketones, UA Neg NEG [facility] Specific [place], Urine <1.005(L) 1.005 - 1.02 [facility] Blood, UA Neg NEG [facility] pH, UA 6.0 5.0 - 9.0 [facility] Protein, UA Neg NEG [facility] Urobilinogen, UA Norm NORM mg/dL [facility] Nitrite, UA Neg NEG [facility] Leuk Esterase Neg NEG [facility] 07/03/2008 18:4 5 EST 07/03/2008 19:53 EST us Jodi Parr MD URINALYSIS ORDERABLES Final Res ult Performing Organization Address [facility] Co de Phone Number [facility] [address] [place] [address] * BACTERIAL CULTURE, BLOOD (07/03/2008 16:00 EST) Specimen Description Blood Right Groin [facility] Result No growth [facility] Report Status Final [id number] [facility] 07/03/2008 16:0 0 EST 07/03/2008 17:30 EST us Jodi Parr MD MICROBIOLOGY - GENERAL ORDERABL ES Final Result Performing Organization Address [facility] Co de Phone Number [facility] [address] [place] [address] * (ABNORMAL) BLOOD GAS, EG6 ISTAT (07/03/2008 [...] [facility] Sample Type ARTERIAL [facility] pricing intern ID [id number] Test Performed by Respiratory [facility] 07/03/2008 15:0 5 EST 07/04/2008 19:29 EST us Jodi Parr MD CHEMISTRY & BLOOD GAS ORDERABLE S Final Result [facility] [address] [place] [address] documented in this encounter Visit Diagnoses Not on filedocumented in this encounter
--- OUTSIDE RECORDS SUMMARY | 2024-06-28 13:52 | XMS_ITS | Encounter Summary ---
Author Organization [facility] Address [address] [place] [address] Care Team Providers Care Nurse Ob Name Role Phone Corin Skinner MD Primary Care Provider [phone] Encounter Details Date Type Department Care Team (Late st Contact Info) Description 10/21/2008 Before PRISM Converted Visit (Maple) [facility] - Maple conversion [address] [place] [address] Emergency, MD Diya Social History Tobacco Use [...] Description 07/06/2024 13:40 EST Office Visit [facility] Endocrinology - [address] [address] Wilder Zaidi, DO 62 [facility] [address] [place] [address] 09/09/2024 10:20 EST Office Visit [facility] Endocrinology - [address] [address] Day Littlejohn MD PhD [address] [place] [address] [address] [place] [address] documented as of this encounter Procedures Procedure Name Priority Date/Time Associated Diagnosis Comments OSMOLALITY Routine 10/21/2008 17:54 EDT documented in this encounter Results * (ABNORMAL) OSMOLALITY (10/21/2008 17:54 EDT) Osmolality Cintia 258(L) 280 - 300 MOS/KG [facility] 10/21/2008 17:5 4 EDT 10/21/2008 17:54 EDT us Default Emergency MD CHEMISTRY & BLOOD GAS ORDER LYNDSEY Final Result Performing Organization Address City/State/[facility] Co de Phone Number [facility] [address] [place] [address] documented in this encounter Visit Diagnoses Not on filedocumented in this encounter Care Teams Nurse Ob Relationship Specialty Start Date End Date Corin Skinner MD [address] [place] [phone] PCP - General 10/24/08 08/21/09 documented as of this encounter
--- OUTSIDE RECORDS SUMMARY | 2024-06-28 13:52 | XMS_ITS | Encounter Summary ---
Author Organization [facility] Address [address] [place] [address] Care Team Providers Care Electrical Discharge Machine Operator Name Role Phone Corin Skinner MD Primary Care Provider Encounter Details Date Type Department Care Team (Late st Contact Info) Description 10/21/2008 Before PRISM Converted Visit (Maple) [facility] - Maple conversion [address] [place] [address] Christopher Ga MD [address] [place] [phone] Social History Tobacco Use Types Packs/Day [...] Visit [facility] Endocrinology - [facility] [address] [place] [address] Wilder Zaidi DO 62 [facility] [address] [place] [address] 09/09/2024 10:20 EST Office Visit [facility] Endocrinology - [facility] [address] [place] [address] Day Littlejohn MD PhD [address] [employer] [address] [place] [address] documented as of this [...] Does not detect oxycodone, oxycontin or methadone. [facility] 10/21/2008 17:1 0 EDT 10/21/2008 18:05 EDT us Christopher Ga MD URINALYSIS ORDERABLES Final Result [facility] [address] [place] [address] documented in this encounter Visit Diagnoses Not on filedocumented in this encounter Care Teams Electrical Discharge Machine Operator Relationship Specialty Start Date End Date Corin Skinner MD [address] [place] [phone] PCP - General 10/24/08 08/21/09 documented as of this encounter
--- OUTSIDE RECORDS SUMMARY | 2024-06-28 13:52 | XMS_ITS | Encounter Summary ---
Author Organization [facility] Address [address] [place] [address] Care Team Providers Care Biological Science Technician Name Role Phone Corin Skinner MD Primary Care Provider [phone] Encounter Details Date Type Department Care Team (Late st Contact Info) Description 10/21/2008 Before PRISM Converted Visit (Maple) [facility] Adult Primary Care [address] [phone] Unknown, Provider, Social History Tobacco Use Types [...] Info) Description 07/06/2024 13:40 EST Office Visit [facility] Endocrinology [address] [phone] Wilder Zaidi, DO [address] [facility] [address] [place] [address] 09/09/2024 10:20 EST Office Visit [facility] Endocrinology [facility] [address] [place] [address] Day Littlejonh MD PhD [address] [place] [address] [address] [place] [address] documented as of this encounter Procedures Procedure Name Priority Date/Time Associated Diagnosis Comments GLUCOSE, GLUCOMETER Routine 10/21/2008 1 7:16 EDT documented in this encounter Results * (ABNORMAL) GLUCOSE, GLUCOMETER (10/21/2008 17:16 EDT) Glucose, Fingerstick 166(H) 70 - 100 mg/dl [facility] Damp[place] ID [id number] Test Performed by Nursing Services [facility] 10/21/2008 17:1 6 EDT 10/21/2008 17:33 EDT us Provider Unknown MD CHEMISTRY & BLOOD GAS ORDERA BLES Final Result Performing Organization Address City/State/[facility] Co de Phone Number [facility] [address] [place] [address] documented in this encounter Visit Diagnoses Not on filedocumented in this encounter Care Teams Biological Science Technician Relationship Specialty Start Date End Date Corin Skinner MD [address] [place] [phone] PCP - General 10/24/08 08/21/09 documented as of this encounter
--- OUTSIDE RECORDS SUMMARY | 2024-06-28 13:52 | XMS_ITS | Encounter Summary ---
Author Organization [facility] Address [address] [place] [address] Care Team Providers Care Reinforcing Iron And Rebar Workers Name Role Phone Corin Skinner MD Primary Care Provider Encounter Details Date Type Department Care Team (Late st Contact Info) Description 10/21/2008 Before PRISM Converted Visit (Maple) [facility] - Maple conversion [address] [place] [address] Christopher Ga MD [address] [place] [phone] Social History Tobacco Use Types Packs/Day [...] Info) Description 07/06/2024 13:40 EST Office Visit [facility] Endocrinology - [facility] [address] [place] [address] Wilder Zaidi DO [address] [facility] [address] [place] [address] 09/09/2024 10:20 EST Office Visit [facility] Endocrinology - [facility] [address] [place] [address] Day Littlejohn MD PhD [address] [facility] [address] [place] [address] documented as of this encounter [...] MD HEMATOLOGY & PF4 ORDERABLES Final Result [facility] [address] [place] [address] documented in this encounter Visit Diagnoses Not on filedocumented in this encounter Care Teams Reinforcing Iron And Rebar Workers Relationship Specialty Start Date End Date Corin Skinner MD [address] [place] [phone] PCP - General 10/24/08 08/21/09 documented as of this encounter
--- OUTSIDE RECORDS SUMMARY | 2024-06-28 13:52 | XMS_ITS | Encounter Summary ---
Author Organization [facility] Address [address] [place] [address] Care Team Providers Care Press Tender Star Signal Name Role Phone Corin Skinner MD Primary Care Provider Encounter Details Date Type Department Care Team (Late st Contact Info) Description 10/21/2008 Before PRISM Converted Visit (Maple) [facility] - Maple conversion [address] [place] [address] Christopher Ga MD [address] [place] [phone] Social History Tobacco Use Types Packs/Day [...] Visit [facility] Endocrinology - [facility] [address] [place] [address] Wilder Zaidi DO [address] [facility] [address] [place] [address] 09/09/2024 10:20 EST Office Visit [facility] Endocrinology - [facility] [address] [place] [address] Day Littlejohn MD PhD [address] [facility] [address] [place] [phone] documented as of this encounter Procedures Procedure Name Priority Date/Time Associated Diagnosis Comments GLUCOSE, GLUCOMETER Routine 10/21/2008 1 9:22 EDT documented in this encounter Results * GLUCOSE, GLUCOMETER (10/21/2008 19:22 EDT) Glucose, Fingerstick 89 70 - 100 mg/dl [facility] Forming Roll Operator ID [id number] Test Performed by Nursing Services [facility] 10/21/2008 19:2 2 EDT 10/21/2008 23:29 EDT us Christopher Ga MD CHEMISTRY & BLOOD GAS ORDER LYNDSEY Final Result [facility] [address] [place] [address] documented in this encounter Visit Diagnoses Not on filedocumented in this encounter Care Teams Press Tender Star Signal Relationship Specialty Start Date End Date Corin Skinner MD [address] [place] [phone] PCP - General 10/24/08 08/21/09 documented as of this encounter
--- OUTSIDE RECORDS SUMMARY | 2024-06-28 13:52 | XMS_ITS | Encounter Summary ---
Author Organization [facility] Address [address] [place] [address] Care Team Providers Care Pari Mutuel Ticket Cashier Name Role Phone Corin Skinner MD Primary Care Provider [phone] Encounter Details Date Type Department Care Team (Late st Contact Info) Description 07/11/2008 Before PRISM Converted Visit (Maple) [facility] - Maple conversion [address] [place] [address] Skyler Edwards [facility] [address] [place] [phone] Social History Tobacco Use Types Packs/Day Years [...] 07/11/2008 July 11, 2008 Yan Demarco M.D. [facility] [address] [place] [address], [address] [place] [address] Demarco, I had the pleasure [...] the family. They have hired a new [employer] who is a male and are hoping [...] by the visiting nurse. Mother knows that [facility] has an order for these injections and [...] Skyler Edwards MD Division of Pediatric Endocrinology [phone] - Skyler Edwards MD P - ROXI Job ID: [id number] Doc ID: [id number] cc: MD Yan Singh MD documented in this encounter Plan of Treatment Upcoming Encounters Date Type Department Care Team (Late st Contact Info) Description 07/06/2024 13:40 EST Office Visit [facility] Endocrinology - [address] [address] Wilder Zaidi, DO [address] [place] [phone] 09/09/2024 10:20 EST Office Visit [address] [phone] Day Littlejohn MD PhD [address] [place] [phone] documented as of this encounter Visit Diagnoses Not on filedocumented in this encounter Care Teams Pari Mutuel Ticket Cashier Relationship Specialty Start Date End Date Corin Skinner MD [address] [place] [phone] PCP - General 10/24/08 08/21/09 documented as of this encounter
--- OUTSIDE RECORDS SUMMARY | 2024-06-28 13:52 | XMS_ITS | Encounter Summary ---
Author Organization [facility] Address [address] [place] [address] Care Team Providers Care Terrazzo Helper Name Role Phone Unavailable Primary Care Provider Unavailabl e Encounter Details Date Type Department Care Team (Late st Contact Info) Description 07/12/2008 10:23 EST - 07/12/2008 11:59 EST Hospital Encounter [facility] [address] [place] [address] [facility] [address] [place] [phone] Discharge Disposition: Auto Discharge Social History Tobacco [...] Info) Description 07/06/2024 13:40 EST Office Visit [facility] Endocrinology - [address] [address] Wilder Zaidi, [address] [facility] [address] [place] [phone] 09/09/2024 10:20 EST Office Visit [facility] Endocrinology - [address] [address] Day Littlejohn MD PhD [address] [facility] [address] [place] [address] Pending Results Name Type Priority [...] 10/21/2008 17:54 EDT us Default Emergency MD LAB INFO SERVICE AND SUPPOR T & PHONE RESULT Final Result Performing Organization Address [facility] Co de Phone Number [facility] [address] [place] [address] * HOLD PURPLE TOP (10/21/2008 17:54 EDT) Hold Purple Top EDTA for hematology will be discarded after 48 hours, differential not available after 12 hours. [facility] 10/21/2008 17:5 4 EDT 10/21/2008 17:54 EDT us Default Emergency MD LAB INFO SERVICE AND SUPPOR T & PHONE RESULT Final Result Performing Organization Address [facility] Co de Phone Number [facility] [address] [place] [address] * HOLD GREEN TOP (10/21/2008 17:54 EDT) Hold Green Top Hold for further testing. Specimen will be held for 5 days. [facility] 10/21/2008 17:5 4 EDT 10/21/2008 17:54 EDT us Default Emergency MD LAB INFO SERVICE AND SUPPOR T & PHONE RESULT Final Result Performing Organization Address [facility] Co de Phone Number [facility] [address] [place] [address] * HOLD BLUE TOP (10/21/2008 17:54 EDT) Hold Blue Top Sample for coagulation will be discarded after 4 hours [facility] 10/21/2008 17:5 4 EDT 10/21/2008 17:54 EDT us Default Emergency MD LAB INFO SERVICE AND SUPPOR T & PHONE RESULT Final Result Performing Organization Address [facility] de Phone Number [facility] [address] [place] [address] * HOLD GREEN TOP (08/13/2008 11:13 EST) Hold Green Top Hold for further testing. Specimen will be held for 5 days. [facility] 08/13/2008 11:1 3 EST 08/13/2008 12:58 EST us Default Emergency MD LAB INFO SERVICE AND SUPPOR T & PHONE RESULT Final Result Performing Organization Address [facility] de Phone Number [facility] [address] [place] [address] * HOLD BLUE TOP (08/13/2008 11:13 EST) Hold Blue Top Sample for coagulation will be discarded after 4 hours [facility] 08/13/2008 11:1 3 EST 08/13/2008 12:58 EST us Default Emergency MD LAB INFO SERVICE AND SUPPOR T & PHONE RESULT Final Result Performing Organization Address [facility] de Phone Number [facility] [address] [place] [address] * PHOSPHORUS (08/13/2008 11:13 EST) Phosphorus 4.4 2.5 - 4.5 mg/dl [facility] 08/13/2008 11:1 3 EST 08/13/2008 12:58 EST us Default Emergency MD CHEMISTRY & BLOOD GAS ORDER LYNDSEY Final Result Performing Organization Address [facility] Co wa Phone Number [facility] [address] [place] [address] * MAGNESIUM (08/13/2008 11:13 EST) Magnesium 1.8 1.7 - 2.8 mg/dl [facility] 08/13/2008 11:1 3 EST 08/13/2008 12:58 EST us Default Emergency MD CHEMISTRY & BLOOD GAS ORDER LYNDSEY Final Result Performing Organization Address [facility] Phone Number [facility] [address] [place] [address] * LIPASE (08/13/2008 11:13 EST) Pathologist [facility] Lipase 97 0 - 250 U/L [facility] 08/13/2008 11:1 3 EST 08/13/2008 12:58 EST us Default Emergency MD CHEMISTRY & BLOOD GAS ORDER LYNDSEY Final Result Performing Organization Address [facility] Phone Number [facility] [address] [place] [address] * (ABNORMAL) SCREENING GLUCOSE (08/13/2008 11:13 EST) Glucose, Screening 68(L) 70 - 100 mg/dl [facility] 08/13/2008 11:1 3 EST 08/13/2008 12:58 EST us Default Emergency MD CHEMISTRY & BLOOD GAS ORDER LYNDSEY Final Result Performing Organization Address [facility] Phone Number [facility] [address] [place] [address] * CREATININE (08/13/2008 11:13 EST) Creatinine 0.90 0.7 - 1.5 mg/dl [facility] GFR, Calculated >60 ml/min/1.7 3m2 [facility] 08/13/2008 11:1 3 EST 08/13/2008 12:58 EST Default Emergency MD CHEMISTRY & BLOOD GAS ORDER LYNDSEY Final Result Performing Organization Address [facility] de Phone Number [facility] [address] [place] [address] * BUN (08/13/2008 11:13 EST) BUN 17 10 - 26 mg/dl [facility] 08/13/2008 11:1 3 EST 08/13/2008 12:58 EST Default Emergency MD CHEMISTRY & BLOOD GAS ORDER LYNDSEY Final Result Performing Organization Address [facility] Phone Number [facility] [address] [place] [address] * CALCIUM (08/13/2008 11:13 EST) Calcium 9.5 8.5 - 10.5 mg/dl [facility] Calculated Calcium 9.3 8.5 - 10.5 mg/dl [facility] 08/13/2008 11:1 3 EST 08/13/2008 12:58 EST Default Emergency MD CHEMISTRY & BLOOD GAS ORDER LYNDSEY Final Result Performing Organization Address [facility] de Phone Number [facility] [address] [place] [address] * LIVER FUNCTION TESTS (08/13/2008 11:13 EST) Albumin 4.6 3.4 - 4.9 g/dl [facility] Total Protein 8.0 6.5 - 8.3 g/dl [facility] Alkaline Phosphatase 120 38 - 126 U/L [facility] ALT 59 21 - 72 U/L [facility] AST 36 15 - 46 U/L [facility] Unconjugated Bilirubin 0.4 0.1 - 1.1 mg/dl [facility] Conjugated Bilirubin 0.0 0.0 - 0.3 mg/dl [facility] Bilirubin, Total <0.5 0.2 - 1.3 mg/dl [facility] 08/13/2008 11:1 3 EST 08/13/2008 12:58 EST Default Emergency MD CHEMISTRY & BLOOD GAS ORDER LYNDSEY Final Result Performing Organization Address City/[facility] de Phone Number [facility] [address] [place] [address] * (ABNORMAL) ELECTROLYTES (08/13/2008 11:13 EST) Sodium 153(H) 136 - 145 mEq/L [facility] Potassium 4.3 3.5 - 5.0 mEq/L [facility] Chloride 113(H) 96 - 110 mEq/L [facility] CO2 26 24 - 32 mEq/L [facility] 08/13/2008 11:1 3 EST 08/13/2008 12:58 EST Default Emergency MD CHEMISTRY & BLOOD GAS ORDER LYNDSEY Final Result Performing Organization Address [facility] de Phone Number [facility] [address] [place] [address] * (ABNORMAL) HEMAGRAM AND DIFFERENTIAL (08/13/2008 11:13 EST) WBC 2.32(L) 4.0 - 10.4 K/cmm [facility] RBC 5.19 4.36 - 5.78 M/cmm [facility] Hemoglobin 13.7(L) 13.8 - 17.3 gm/dl [facility] HCT 39.9 39.5 - 50.2 % [facility] MCV 77(L) 81 - 95 fl [facility] MCH 26.3(L) 27.6 - 33.0 pg [facility] MCHC 34.2 32.8 - 36.4 gm/dl [facility] PLT 202 141 - 320 K/cmm [facility] RDW-CV 16.2(H) 11.8 - 14.1 % [facility] Neutrophils 56.0 45.5 - 79.7 % [facility] Lymphocytes 38.0 15.0 - 46.8 % [facility] % Atyp Lymphs 1.0 % [facility] Monocytes 3.0 1.8 - 12.0 % [facility] Eosinophils 1.0 0.6 - 6.9 % [facility] Basophils 1.0 0.2 - 1.4 % [facility] ABS Neutrophils 1.31(L) 2.20 - 8.85 K/cmm [facility] ABS Lymphs 0.88(L) 1.09 - 3.30 K/cmm [facility] ABS Atyp Lymphs 0.02 K/cmm [facility] ABS Monocytes 0.07(L) 0.1 - 0.8 K/cmm [facility] ABS Eosinophils 0.02(L) 0.03 - 0.61 K/cmm [facility] ABS Basophils 0.02 0.01 - 0.11 K/cmm [facility] RBC Morphology 1+ Anisocytosis 2+ Microcytes [facility] Type of Diff: Manual [facility] 08/13/2008 11:1 3 EST 08/13/2008 12:58 EST Default Emergency MD PACKAGES & DNA PROBE ORDERA BLES Final Result Performing Organization Address [facility]/ZIP Co de Phone Number [facility] [address] [place] [address] * (ABNORMAL) TESTOSTERONE (07/12/2008 10:44 EST) Testosterone, Total 28(L) 241 - 827 ng/dL [facility] 07/12/2008 10:4 4 EST 07/12/2008 11:37 EST Skyler Edwards [facility] CHEMISTRY & BL OOD GAS ORDERABLES Final Result Performing Organization Address City/[facility]/ZIP Co de Phone Number [facility] [address] [place] [address] * T4 FREE (07/12/2008 10:44 EST) Free T4 1.7 0.8 - 1.8 ng/dL [facility] 07/12/2008 10:4 4 EST 07/12/2008 11:37 EST Skyler Edwards [facility] CHEMISTRY & BL OOD GAS ORDERABLES Final Result Performing Organization Address [facility] Co de Phone Number [facility] [address] [place] [address] * BASIC METABOLIC PANEL (07/12/2008 10:44 EST) [...] 4 EST 07/12/2008 11:37 EST Skyler Edwards [facility] CHEMISTRY & BL OOD GAS ORDERABLES Final Result Performing Organization Address City/[facility]/ZIP Co de Phone Number [facility] [address] [place] [address] documented in this encounter Visit Diagnoses Not on filedocumented in this encounter
--- OUTSIDE RECORDS SUMMARY | 2024-06-28 13:52 | XMS_ITS | Encounter Summary ---
Author Organization [facility] Address [address] [place] [address] Care Team Providers Care Keyboard Instrument Repairer Name Role Phone Yan Demarco MD Primary Care Provider [phone] Corin Skinner MD Primary Care Provider [phone] Akil Serrano MD Primary Care Provider [phone] Yossi Torres MD Primary Care Provider [phone] Emilee Cody MD Primary Care Provider + Ren Vaz MD Primary Care Provider [phone] Encounter Details Date Type Department Care Team (Late st Contact Info) Description 10/21/2008 Before PRISM Converted Visit (Maple) [facility] - Maple conversion [address] [place] [address] Slava Pineda MD Social History Tobacco Use [...] Info) Description 07/06/2024 13:40 EST Office Visit [facility] Endocrinology - [facility] [address] [place], [place] [phone] Wilder Zaidi, DO [address] [facility] [address] [place] [phone] 09/09/2024 10:20 EST Office Visit [facility] Endocrinology - [place] [address] [place] [address] Day Littlejohn MD PhD [address] [facility] [address] [place] [address] documented as of this encounter [...] no acute process other than intimal atelectasis. us Slava Pineda MD IMG DIAGNOSTIC IMAGING ORDER LYNDSEY Final Result documented in this encounter Visit Diagnoses Not on filedocumented in this encounter Care Teams Keyboard Instrument Repairer Relationship Specialty Start Date End Date Yan Demarco MD [address] [place] [address] PCP - General 08/22/09 02/20/10 Corin Skinner MD [address] [place] [phone] PCP - General 10/24/08 08/21/09 Akil Serrano MD [address] [facility] [address] [place] [address] PCP - General 02/21/10 04/16/11 Yossi Torres MD [address] [place] [phone] PCP - General 04/17/11 03/14/16 Emilee Cody MD [address] [place], [place] [phone] PCP - General 03/15/16 09/29/18 Ren Vaz MD [address] [place] [phone] PCP - General 09/30/18 documented as of this encounter
--- OUTSIDE RECORDS SUMMARY | 2024-06-28 13:52 | XMS_ITS | Encounter Summary ---
Author Organization [facility] Address [address] [place] [address] Care Team Providers Care Binder Stripper Machine Name Role Phone Corin Skinner MD Primary Care Provider Encounter Details Date Type Department Care Team (Late st Contact Info) Description 10/21/2008 Before PRISM Converted Visit (Maple) [facility] - Maple conversion [address] [place] [address] Christopher Ga MD [address] [place] [phone] Social History Tobacco Use Types Packs/Day [...] Info) Description 07/06/2024 13:40 EST Office Visit [facility] Endocrinology - [facility] [address] [place] [address] Wilder Zaidi DO [address] [facility] [address] [place] [address] 09/09/2024 10:20 EST Office Visit [facility] Endocrinology - [facility] [address] [place] [address] Day Littlejohn MD PhD [address] [facility] [address] [place] [phone] documented as of this encounter Procedures Procedure Name Priority Date/Time Associated Diagnosis Comments MAGNESIUM Routine 10/21/2008 21:00 EDT documented in this encounter Results * (ABNORMAL) MAGNESIUM (10/21/2008 21:00 EDT) Magnesium 1.1(L) 1.7 - 2.8 mg/dl [facility] 10/21/2008 21:0 0 EDT 10/21/2008 21:17 EDT us Christopher Ga MD CHEMISTRY & BLOOD GAS ORDER LYNDSEY Final Result [facility] [address] [place] [address] documented in this encounter Visit Diagnoses Not on filedocumented in this encounter Care Teams Binder Stripper Machine Relationship Specialty Start Date End Date Corin Skinner MD [address] [place] [phone] PCP - General 10/24/08 08/21/09 documented as of this encounter
--- OUTSIDE RECORDS SUMMARY | 2024-06-28 13:52 | XMS_ITS | Encounter Summary ---
Author Organization [facility] Address [address] [place] [address] Care Team Providers Care Chip Tester Name Role Phone Corin Skinner MD Primary Care Provider [phone] Encounter Details Date Type Department Care Team (Late st Contact Info) Description 10/21/2008 Before PRISM Converted Visit (Maple) [facility] - Maple conversion [address] [place] [address] Christopher Ga MD [address] [place] [phone] Social History Tobacco Use Types Packs/Day [...] EST Office Visit [facility] - [facility] [address] [place] [address] Wilder Zaidi DO [address] [facility] [address] [place] [address] 09/09/2024 10:20 EST Office Visit [facility]ology - [facility] [address] [place] [address] Day Littlejohn MD PhD [address] [facility] [address] [place] [phone] documented as of this encounter Procedures Procedure Name Priority Date/Time Associated Diagnosis Comments SODIUM, URINE RANDOM Routine 10/21/2008 21:00 EDT documented in this encounter Results * SODIUM, URINE RANDOM (10/21/2008 21:00 EDT) Sodium, Ur <5.0 mEq/L [facility] 10/21/2008 21:0 0 EDT 10/21/2008 21:16 EDT us Christopher Ga MD URINALYSIS ORDERABLES Final Result [facility] [address] [place] [address] documented in this encounter Visit Diagnoses Not on filedocumented in this encounter Care Teams Chip Tester Relationship Specialty Start Date End Date Corin Skinner MD [address] [place] [phone] PCP - General 10/24/08 08/21/09 documented as of this encounter
--- OUTSIDE RECORDS SUMMARY | 2024-06-28 13:52 | XMS_ITS | Encounter Summary ---
Author Organization [facility] Address [address] [place] [address] Care Team Providers Care Resident Services Coordinator Name Role Phone Corin Skinner MD Primary Care Provider [phone] Encounter Details Date Type Department Care Team (Late st Contact Info) Description 10/21/2008 Before PRISM Converted Visit (Maple) [facility] - Maple conversion [address] [place] [address] Emergency, MD Diya Social History Tobacco Use [...] Office Visit [facility] Endocrinology - [address] [address] Wilder Zaidi, DO [address] [facility] [address] [place] [phone] 09/09/2024 10:20 EST Office Visit [facility] Endocrinology - [address] [address] Day Littlejohn MD PhD [address] [place] [address] [address] [place] [phone] documented as of this encounter [...] LYNDSEY Final Result [facility] [address] [place] [address] documented in this encounter Visit Diagnoses Not on filedocumented in this encounter Care Teams Resident Services Coordinator Relationship Specialty Start Date End Date Corin Skinner MD [address] [place] [phone] PCP - General 10/24/08 08/21/09 documented as of this encounter
--- OUTSIDE RECORDS SUMMARY | 2024-06-28 13:52 | XMS_ITS | Encounter Summary ---
Author Organization [facility] Address [address] [place] [address] Care Team Providers Care Sales Service Supervisor Name Role Phone Unavailable Primary Care Provider Unavailabl e Encounter Details Date Type Department Care Team (Late st Contact Info) Description 07/21/2008 18:45 EST - 07/26/2008 11:59 EST Hospital Encounter [facility] [address] [place], [place] [address] Jodi Parr MD [address] [place] [address] [phone] Skyler Quinteros MD [address] [phone] Discharge Disposition: Home-Health Care Svc Social History [...] Office Visit [facility] Endocrinology - [address] [phone] Wilder Zaidi, DO [address] [facility] [address] [place] [address] 09/09/2024 10:[address] [facility] Endocr[facility]ology - [facility] [address] [place], [place] [phone] Day Littlejohn MD PhD [address] [facility] [address] [place] [address] documented [...] EST Skyler Quinteros MD MSc CHEMISTRY & BLOOD GAS ORDERABLES Final Result Performing Organization Address [facility] Co de Phone Number [facility] [address] [place] [address] * (ABNORMAL) ELECTROLYTES (07/26/2008 8:00 EST) Sodium 150(H) 136 - 145 mEq/L [facility] Potassium 4.1 3.5 - 5.0 mEq/L [facility] Chloride 112(H) 96 - 110 mEq/L [facility] CO2 25 24 - 32 mEq/L [facility] 07/26/2008 8:00 EST 07/26/2008 8:46 EST Skyler Quinteros MD MSc CHEMISTRY & BLOOD GAS ORDERABLES Final Result Performing Organization Address [facility] de Phone Number [facility] [address] [place] [address] * (ABNORMAL) ELECTROLYTES (07/25/2008 8:10 EST) Sodium 147(H) 136 - 145 mEq/L [facility] Potassium 3.8 3.5 - 5.0 mEq/L [facility] Chloride 110 96 - 110 mEq/L [facility] CO2 23(L) 24 - 32 mEq/L [facility] 07/25/2008 8:10 EST 07/25/2008 8:39 EST Skyler Quinteros MD MSc CHEMISTRY & BLOOD GAS ORDERABLES Final Result Performing Organization Address City/[facility] Co de Phone Number [facility] [address] [place] [address] * CALCIUM, IONIZED (07/24/2008 16:41 EST) Calcium, Ionized 1.27 1.12 - 1.32 mmol/L [facility] home energy [place] [id number] Test performed by Chemistry [facility] 07/24/2008 16:4 1 EST 07/24/2008 16:49 EST Skyler Quinteros MD MSc CHEMISTRY & BLOOD GAS ORDERABLES Final Result Performing Organization Address [facility] Co de Phone Number [facility] [address] [place] [address] * GLUCOSE, SERUM (07/24/2008 16:00 EST) Glucose, Serum 82 70 - 100 mg/dl [facility] 07/24/2008 16:0 0 EST 07/24/2008 16:36 EST Skyler Quinteros MD MSc CHEMISTRY & BLOOD GAS ORDERABLES Final Result Performing Organization Address [facility] de Phone Number [facility] [address] [place] [address] * CALCIUM (07/24/2008 16:00 EST) Calcium 9.2 8.5 - 10.5 mg/dl [facility] Calculated Calcium 10.0 8.5 - 10.5 mg/dl [facility] 07/24/2008 16:0 0 EST 07/24/2008 16:36 EST Skyler Quinteros MD MSc CHEMISTRY & BLOOD GAS ORDERABLES Final Result Performing Organization Address [facility] de Phone Number [facility] [address] [place] [address] * (ABNORMAL) ELECTROLYTES (07/24/2008 16:00 EST) Sodium 146(H) 136 - 145 mEq/L [facility] Potassium 4.5 3.5 - 5.0 mEq/L [facility] Chloride 108 96 - 110 mEq/L [facility] CO2 26 24 - 32 mEq/L [facility] 07/24/2008 16:0 0 EST 07/24/2008 16:36 EST Skyler Quinteros MD MSc CHEMISTRY & BLOOD GAS ORDERABLES Final Result Performing Organization Address [facility] de Phone Number [facility] [address] [place] [address] * CALCIUM IONIZED (07/24/2008 16:00 EST) Ionized Calcium Note Sample sent to Lab. [facility] 07/24/2008 16:0 0 EST 07/24/2008 16:36 EST Skyler Quinteros MD MSc CHEMISTRY & BLOOD GAS ORDERABLES Final Result Performing Organization Address [facility] de Phone Number [facility] [address] [place] [address] * (ABNORMAL) ELECTROLYTES (07/24/2008 8:00 EST) Sodium 147(H) 136 - 145 mEq/L [facility] Potassium 3.5 3.5 - 5.0 mEq/L [facility] Chloride 109 96 - 110 mEq/L [facility] CO2 21(L) 24 - 32 mEq/L [facility] 07/24/2008 8:00 EST 07/24/2008 8:28 EST Skyler Quinteros MD MSc CHEMISTRY & BLOOD GAS ORDERABLES Final Result Performing Organization Address [facility] de Phone Number [facility] [address] [place] [address] * WRIST 2 VIEWS (07/22/2008 15:15 EST) [...] on initial radiographs. Impression: Negative left wrist us Salud Nichole MD IMG DIAGNOSTIC IMAGING ORDERA BLES Final Result * FOREARM 2 VIEWS (07/22/2008 15:15 EST) [...] or dislocation. Salud Nichole MD IMG DIAGNOSTIC IMAGING ORDERA BLES Final Result * CULTURE IF UA POSITIVE (07/22/2008 12:00 EST) Culture if Indicated Culture not indicated by urinalysis results. [facility] 07/22/2008 12:0 0 EST 07/22/2008 12:23 EST Skyler Quinteros MD MSc MICROBIOLOGY - GENERA L ORDERABLES Final Result [facility] [address] [place] [address] * UA WITH MICROSCOPIC (07/22/2008 12:00 EST) Color, UA Yellow [facility] Clarity, UA Clear [facility] Glucose, UA Norm NORM [facility] Bilirubin, UA Neg NEG [facility] Ketones, UA Neg NEG [facility] Specific [place], Urine 1.010 1.005 - 1.02 [facility] Blood, UA Neg NEG [facility] pH, UA 6.0 5.0 - 9.0 [facility] Protein, UA Neg NEG [facility] Urobilinogen, UA Norm NORM mg/dL [facility] Nitrite, UA Neg NEG [facility] Leuk Esterase Neg NEG [facility] WBC, UA None seen 0 - 5 /HPF [facility] RBC, UA None seen 0 - 5 /HPF [facility] Squam Epithel, UA None seen NS /HPF [facility] Renal Epithel, UA None seen NS /HPF [facility] Bacteria, UA None seen NS /HPF [facility] Crystals, UA None seen /HPF [facility] Hyaline Casts, UA None seen /LPF [facility] Comment Microscopic results are unreliable on urines unrefrig >2hrs or refrig >8hrs. [facility] Comment Amorphous material present [facility] 07/22/2008 12:0 0 EST 07/22/2008 12:23 EST Skyler Quinteros MD MSc URINALYSIS ORDERABLES Final Result Performing Organization Address City/State/[facility] Co de Phone Number [facility] [address] [place] [address] * WRIST 2 VIEWS (07/21/2008 20:20 EST) [...] the wrist are recommended for further evaluation. us Salud Nichole MD IMG DIAGNOSTIC IMAGING ORDERA BLES Final Result documented in this encounter Visit Diagnoses Not on filedocumented in this encounter
--- OUTSIDE RECORDS SUMMARY | 2024-06-28 13:52 | XMS_ITS | Encounter Summary ---
Author Organization [facility] Address [address] [place] [address] Care Team Providers Care Homeworker Name Role Phone Corin Skinner MD Primary Care Provider Encounter Details Date Type Department Care Team (Late st Contact Info) Description 10/21/2008 Before PRISM Converted Visit (Maple) [facility] - Maple conversion [address] [place] [address] Christopher Ga MD [address] [place] [phone] Social History Tobacco Use Types Packs/Day [...] Description 07/06/2024 13:40 EST Office Visit [facility] Endocrinology - [facility] [address] [place] [address] Wilder Zaidi DO 62 [facility] [address] [place] [address] 09/09/2024 10:20 EST Office Visit [facility] Endocrinology - [facility] [address] [place] [address] Day Littlejohn MD PhD [address] [facility] [address] [place] [phone] documented as of this encounter Procedures Procedure Name Priority Date/Time Associated Diagnosis Comments OSMOLALITY, URINE Routine 10/21/2008 21: 00 EDT documented in this encounter Results * (ABNORMAL) OSMOLALITY, URINE (10/21/2008 21:00 EDT) Osmolality, Ur 106(L) 392 - 1090 MOS/KG [facility] 10/21/2008 21:0 0 EDT 10/21/2008 21:16 EDT us Christopher Ga MD URINALYSIS ORDERABLES Final Result [facility] [address] [place] [address] documented in this encounter Visit Diagnoses Not on filedocumented in this encounter Care Teams Homeworker Relationship Specialty Start Date End Date Corin Skinner MD [address] [place] [phone] PCP - General 10/24/08 08/21/09 documented as of this encounter
--- OUTSIDE RECORDS SUMMARY | 2024-06-28 13:52 | XMS_ITS | Encounter Summary ---
Author Organization [facility] Address [address] [place] [address] Care Team Providers Care Wind Tunnel Engineer Name Role Phone Corin Skinner MD Primary Care Provider [phone] Encounter Details Date Type Department Care Team (Late st Contact Info) Description 10/21/2008 Before PRISM Converted Visit (Maple) [facility] [place] - Maple conversion [address] [place] [address] Emergency, MD Diya Social History Tobacco Use [...] Description 07/06/2024 13:40 EST Office Visit [facility] [place] Endocrinology - [address] [address] Wilder Zaidi, DO [address] [facility] [address] [place] [address] 09/09/2024 10:20 EST Office Visit [facility] [place] Endocrinology - [address] [address] Day Littlejohn MD PhD [address] [place] [address] [address] [place] [address] documented as of this encounter [...] LYNDSEY Final Result [facility] [address] [place] [address] documented in this encounter Visit Diagnoses Not on filedocumented in this encounter Care Teams Wind Tunnel Engineer Relationship Specialty Start Date End Date Corin Skinner MD [address] [place] [phone] PCP - General 10/24/08 08/21/09 documented as of this encounter
--- OUTSIDE RECORDS SUMMARY | 2024-06-28 13:52 | XMS_ITS | Encounter Summary ---
Author Organization [facility] Address [address] [place] [address] Care Team Providers Care Ict Trainer Name Role Phone Unavailable Primary Care Provider Unavailabl e Encounter Details Date Type Department Care Team (Late st Contact Info) Description 06/11/2008 11:00 EST - 06/11/2008 11:59 EST Hospital Encounter [facility] [address] [place] [address] [facility] [address] [place] [phone] Discharge Disposition: Auto Discharge Social History Tobacco [...] 07/06/2024 13:40 EST Office Visit [facility] Endocrinology - [address] [address] Wilder Zaidi, 62 [facility] [address] [place] [phone] 09/09/2024 10:20 EST Office Visit [facility] Endocrinology - [address] [address] Day Littlejohn MD PhD [address] [facility] [address] [place] [address] documented as of this encounter [...] significant changes compared to the previous study. us Yan Clarke MD IMG CT ORDERABLES Final Resul t * PTT (07/03/2008 16:00 EST) PTT 34 20 - 35 secs [facility] Comment:Therapeutic Heparin range: 60-100 seconds 07/03/2008 16:0 0 EST 07/03/2008 16:07 EST Default Emergency HEMATOLOGY & PF4 ORDERABLES Final Result Performing Organization Address [facility] de Phone Number [facility] [address] [place] [address] * (ABNORMAL) PROTIME (07/03/2008 16:00 EST) Pro Time 15.3(H) 12.0 - 15.0 secs [facility] I.N.R. 1.2(H) 0.9 - 1.1 Ratio [facility] Comment: Moderate Intensity Coumadin INR = 2.0-3.0 Adjustments in anticoagulant therapy dose should be based upon the INR and NOT the Pro Time. 07/03/2008 16:0 0 EST 07/03/2008 16:07 EST us Default Emergency HEMATOLOGY & PF4 ORDERABLES Final Result Performing Organization Address [facility] de Phone Number [facility] [address] [place] [address] * (ABNORMAL) BLOOD GAS, G3 ISTAT (07/03/2008 15:23 EST) pH, i-STAT 7.22(L) 7.35 - 7.45 [facility] pCO2, i-STAT 63(H) 35 - 45 mmHg [facility] pO2, i-STAT 33(L) 85 - 100 mmHg [facility] TCO2, i-STAT 27 mEq/L [facility] O2 Saturation 51 % [facility] Base Deficit 4 [facility] Sample Type NOT GIVEN [facility] barrel endshake adjuster ID [id number] Test performed by Chemistry [facility] 07/03/2008 15:2 3 EST 07/03/2008 15:28 EST us Provider Unknown MD CHEMISTRY & BLOOD GAS ORDERA BLES Final Result Performing Organization Address [facility] de Phone Number [facility] [address] [place] [address] * (ABNORMAL) LACTIC ACID (07/03/2008 15:05 EST) Lactic Acid 3.0(H) 0.7 - 2.1 mmol/L [facility] 07/03/2008 15:0 5 EST 07/03/2008 15:19 EST us Default Emergency CHEMISTRY & BLOOD GAS ORDER LYNDSEY Final Result Performing Organization Address [facility] de Phone Number [facility] [address] [place] [address] * (ABNORMAL) GLUCOSE, SERUM (07/03/2008 15:05 EST) Glucose, Serum 69(L) 70 - 100 mg/dl [facility] Comment:Heparinized plasma. 07/03/2008 15:0 5 EST 07/03/2008 15:13 EST us Default Emergency CHEMISTRY & BLOOD GAS ORDER LYNDSEY Final Result Performing Organization Address [facility] de Phone Number [facility] [address] [place] [address] * CREATININE (07/03/2008 15:05 EST) Creatinine 0.80 0.7 - 1.5 mg/dl [facility] Comment:Heparinized plasma. GFR, Calculated >60 ml/min/1.7 3m2 [facility] Comment:Heparinized plasma. 07/03/2008 15:0 5 EST 07/03/2008 15:13 EST us Default Emergency MD CHEMISTRY & BLOOD GAS ORDER LYNDSEY Final Result Performing Organization Address [facility] de Phone Number [facility] [address] [place] [address] * BUN (07/03/2008 15:05 EST) BUN 14 10 - 26 mg/dl [facility] Comment:Heparinized plasma. 07/03/2008 15:0 5 EST 07/03/2008 15:13 EST Default Emergency MD CHEMISTRY & BLOOD GAS ORDER LYNDSEY Final Result Performing Organization Address [facility] Phone Number [facility] [address] [place] [address] * ELECTROLYTES (07/03/2008 15:05 EST) Sodium 145 136 - 145 mEq/L [facility] Comment:Heparinized plasma. Potassium 4.4 3.5 - 5.0 mEq/L [facility] Comment:Heparinized plasma. Chloride 103 96 - 110 mEq/L [facility] Comment:Heparinized plasma. CO2 24 24 - 32 mEq/L [facility] Comment:Heparinized plasma. 07/03/2008 15:0 5 EST 07/03/2008 15:13 EST Default Emergency MD CHEMISTRY & BLOOD GAS ORDER LYNDSEY Final Result Performing Organization Address [facility] de Phone Number [facility] [address] [place] [address] * (ABNORMAL) HEMAGRAM AND DIFFERENTIAL (07/03/2008 15:05 EST) WBC 4.29 4.0 - 10.4 K/cmm [facility] RBC 5.54 4.36 - 5.78 M/cmm [facility] Hemoglobin 15.2 13.8 - 17.3 gm/dl [facility] HCT 45.1 39.5 - 50.2 % [facility] MCV 81 81 - 95 fl [facility] MCH 27.4(L) 27.6 - 33.0 pg [facility] MCHC 33.7 32.8 - 36.4 gm/dl [...] 07/03/2008 15:0 5 EST 07/03/2008 15:13 EST us Default Emergency PACKAGES & DNA PROBE ORDERA BLES Final Result [facility] [address] [place] [address] * PORTABLE CHEST 1 VIEW (07/03/2008 14:52 [...] Note Leticia Solomon MD / Marlene Mensah, [facility] - 11/21/2008 Patient has cough, shortness of [...] interpretation and agree with the findings. us Shola Wolf MD IM DIAGNOSTIC IMAGING [facility] Final Result * ELECTROLYTES (06/11/2008 11:11 EST) Sodium 140 136 - 145 mEq/L [facility] Potassium 4.1 3.5 - 5.0 mEq/L [facility] Chloride 100 96 - 110 mEq/L [facility] CO2 24 24 - 32 mEq/L [facility] 06/11/2008 11:1 1 EST 06/11/2008 11:13 EST Skyler Edwards MDCM CHEMISTRY & BL OOD GAS ORDERABLES Final Result Performing Organization Address City/State/[facility] Co de Phone Number [facility] [address] [place] [address] documented in this encounter Visit Diagnoses Not on filedocumented in this encounter
--- OUTSIDE RECORDS SUMMARY | 2024-06-28 13:52 | XMS_ITS | Encounter Summary ---
Author Organization [facility] Address [address] [place] [address] Care Team Providers Care Workers Compensation Claims Specialist Name Role Phone Corin Skinner MD Primary Care Provider [phone] Encounter Details Date Type Department Care Team (Late st Contact Info) Description 10/21/2008 Before PRISM Converted Visit (Maple) [facility] - Maple conversion [address] [place] [address] Emergency, MD Diya Social History Tobacco Use [...] Office Visit [facility] Endocrinology - [address] [address] Wilder Zaidi, DO 62 [facility] [address] [place] [address] 09/09/2024 10:20 EST Office Visit [facility] Endocrinology - [address] [address] Day Littlejohn MD PhD [address] [place] [address] [address] [place] [address] documented as of this encounter Procedures Procedure Name Priority Date/Time Associated Diagnosis Comments PTT Routine 10/21/2008 17:54 EDT documented in this encounter Results * (ABNORMAL) PTT (10/21/2008 17:54 EDT) PTT 36(H) 20 - 35 secs [facility] Comment:Therapeutic Heparin range: 60-100 seconds 10/21/2008 17:5 4 EDT 10/21/2008 17:54 EDT us Default Emergency MD HEMATOLOGY & PF4 ORDERABLES Final Result Performing Organization Address City/State/[facility] Co de Phone Number [facility] [address] [place] [address] documented in this encounter Visit Diagnoses Not on filedocumented in this encounter Care Teams Workers Compensation Claims Specialist Relationship Specialty Start Date End Date Corin Skinner MD [address] [place] [phone] PCP - General 10/24/08 08/21/09 documented as of this encounter
--- OUTSIDE RECORDS SUMMARY | 2024-06-28 13:52 | XMS_ITS | Encounter Summary ---
Author Organization [facility] Address [address] [place] [address] Care Team Providers Care Belt Sander Stone Name Role Phone Corin Skinner MD Primary Care Provider Encounter Details Date Type Department Care Team (Late st Contact Info) Description 10/21/2008 Before PRISM Converted Visit (Maple) [facility] - Maple conversion [address] [place] [address] Christopher Ga MD [address] [place] [phone] Social History Tobacco Use Types Packs/Day [...] Description 07/06/2024 13:40 EST Office Visit [facility] Endocrinology - [facility] [address] [place] [address] Wilder Zaidi DO 62 [facility] [address] [place] [address] 09/09/2024 10:20 EST Office Visit [facility] Endocrinology - [facility] [address] [place] [address] Day Littlejohn MD PhD 62 [facility] [address] [place] [phone] documented as of this encounter Procedures Procedure Name Priority Date/Time Associated Diagnosis Comments CALCIUM Routine 10/21/2008 21:00 EDT documented in this encounter Results * (ABNORMAL) CALCIUM (10/21/2008 21:00 EDT) Calcium 8.4(L) 8.5 - 10.5 mg/dl [facility] Calculated Calcium 9.9 8.5 - 10.5 mg/dl [facility] 10/21/2008 21:0 0 EDT 10/21/2008 21:17 EDT us Christopher Ga MD CHEMISTRY & BLOOD GAS ORDER LYNDSEY Final Result [facility] [address] [place] [address] documented in this encounter Visit Diagnoses Not on filedocumented in this encounter Care Teams Belt Sander Stone Relationship Specialty Start Date End Date Corin Skinner MD [address] [place] [phone] PCP - General 10/24/08 08/21/09 documented as of this encounter
--- OUTSIDE RECORDS SUMMARY | 2024-06-28 13:52 | XMS_ITS | Encounter Summary ---
Author Organization [facility] Address [address] [place] [address] Care Team Providers Care Supervisor Real Estate Office Name Role Phone Corin Skinner MD Primary Care Provider [phone] Encounter Details Date Type Department Care Team (Late st Contact Info) Description 10/21/2008 Before PRISM Converted Visit (Maple) [facility] - Maple conversion [address] [place] [address] Emergency, MD Diya Social History Tobacco Use [...] Description 07/06/2024 13:40 EST Office Visit [facility] Endocrinology - [address] [address] Wilder Zaidi, DO 62 [facility] [address] [place] [address] 09/09/2024 10:20 EST Office Visit [facility] Endocrinology - [address] [address] Day Littlejohn MD PhD [address] [place] [address] [address] [place] [phone] documented as of this encounter Procedures Procedure Name Priority Date/Time Associated Diagnosis Comments TSH Routine 10/21/2008 17:54 EDT documented in this encounter Results * (ABNORMAL) TSH (10/21/2008 17:54 EDT) TSH <0.02(L) 0.35 - 5.00 uIU/ml [facility] 10/21/2008 17:5 4 EDT 10/21/2008 17:54 EDT us Default Emergency MD CHEMISTRY & BLOOD GAS ORDER LYNDSEY Final Result [facility] [address] [place] [address] documented in this encounter Visit Diagnoses Not on filedocumented in this encounter Care Teams Supervisor Real Estate Office Relationship Specialty Start Date End Date Corin Skinner MD [address] [place] [phone] PCP - General 10/24/08 08/21/09 documented as of this encounter
--- OUTSIDE RECORDS SUMMARY | 2024-06-28 13:52 | XMS_ITS | Encounter Summary ---
Author Organization [facility] Address [address] [place] [address] Care Team Providers Care Boat Outfitting Supervisor Name Role Phone Unavailable Primary Care Provider Unavailabl e Encounter Details Date Type Department Care Team (Late st Contact Info) Description 08/13/2008 14:44 EST - 08/14/2008 11:59 EST Hospital Encounter [facility] [address] [place] [address] Summer Parr MD 111 [facility], [address] [phone] Slava Pineda MD Discharge Disposition: [...] 12/14/2008 0820 EDT HISS DISCHARGE SUMMARY ADDRESS: [address] [place] [address] PHONE: [phone] ATTENDING PHYSICIAN: SUMMER PARR MD ADDRESS: [place] [address] [address] [place] [address] PHONE: [phone] REFERRING PHYSICIAN: ANCELMO MICHAEL MD ADDRESS: [facility] [address] [place] [address] PHONE: [phone] ADMISSION DATE: 08/13/08 SERVICE: PED. MEDICINE TRANSFER TO IP: DISCHARGE DATE: 08/14/08 SERVICE: PED. 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 If you are taking herbal remedies, nutritional supplements, or nynj-dlo-mnmrwyd medications you are strongly encouraged to discontinue [...] JOHAN PARIKH MD P - ZOHDocument ID: [id number] documented in this encounter Discharge Disposition Disposition Code Departure Means Destination Home or Self Care documented in this encounter Plan of Treatment Upcoming Encounters Date Type Department Care Team (Late st Contact Info) Description 07/06/2024 13:40 EST Office Visit [facility] Endocrinology - [facility] [address] [place] [address] Wilder Zaidi, DO 62 [facility] [address] [place] [address] 09/09/2024 10:20 EST Office Visit [facility] Endocrinology - [facility] [address] [place] [address] Day Littlejohn MD PhD 62 [facility] [address] [place] [address] documented as of this encounter Procedures Procedure Name Priority Date/Time Associated Diagnosis Comments BUN Routine 08/14/2008 6:00 EST CREATININE Routine 08/14/2008 6:00 EST ELECTROLYTES Routine 08/14/2008 6:00 EST documented in this encounter Results * CREATININE (08/14/2008 6:00 EST) Creatinine 0.90 0.7 - 1.5 mg/dl [facility] Comment:Heparinized plasma. GFR, Calculated >60 ml/min/1.7 3m2 [facility] Comment:Heparinized plasma. 08/14/2008 6:00 EST 08/14/2008 9:43 EST us Summer Parr MD CHEMISTRY & BLOOD GAS ORDERABLE S Final Result [facility] [address] [place] [address] * BUN (08/14/2008 6:00 EST) BUN 14 10 - 26 mg/dl [facility] Comment:Heparinized plasma. 08/14/2008 6:00 EST 08/14/2008 9:43 EST us Summer Parr MD CHEMISTRY & BLOOD GAS ORDERABLE S Final Result Performing Organization Address [facility] de Phone Number [facility] [address] [place] [address] * (ABNORMAL) ELECTROLYTES (08/14/2008 6:00 EST) Sodium 150(H) 136 - 145 mEq/L [facility] Comment:Heparinized plasma. Potassium 5.2(H) 3.5 - 5.0 mEq/L [facility] Comment:Heparinized plasma. Chloride 117(H) 96 - 110 mEq/L [facility] Comment:Heparinized plasma. CO2 19(L) 24 - 32 mEq/L [facility] Comment:Heparinized plasma. 08/14/2008 6:00 EST 08/14/2008 9:43 EST us Summer Parr MD CHEMISTRY & BLOOD GAS ORDERABLE S Final Result Performing Organization Address [facility] de Phone Number [facility] [address] [place] [address] documented in this encounter Visit Diagnoses Not on filedocumented in this encounter
--- OUTSIDE RECORDS SUMMARY | 2024-06-28 13:52 | XMS_ITS | Encounter Summary ---
Author Organization [facility] Address [address] [place] [address] Care Team Providers Care Health Center Assistant Name Role Phone Corin Skinner MD Primary Care Provider +1- [phone] Encounter Details Date Type Department Care Team (Late st Contact Info) Description 10/21/2008 Before PRISM Converted Visit (Maple) [facility] - Maple conversion [address] [place] [address] Emergency, MD Diya Social History Tobacco Use [...] Description 07/06/2024 13:40 EST Office Visit [facility] Endocrinology - [address] [address] Wilder Ziadi, DO 62 [facility] [address] [place] [address] 09/09/2024 10:20 EST Office Visit [facility] Endocrinology - [address] [address] Day Littlejohn MD PhD [address] [place] [address] [address] [place] [address] documented as of this encounter [...] ORDER LYNDSEY Final Result Performing Organization Address City/State/[facility] Co de Phone Number [facility] [address] [place] [address] documented in this encounter Visit Diagnoses Not on filedocumented in this encounter Care Teams Health Center Assistant Relationship Specialty Start Date End Date Corin Skinner MD [address] [place] [phone] PCP - General 10/24/08 08/21/09 documented as of this encounter
--- OUTSIDE RECORDS SUMMARY | 2024-06-28 13:52 | XMS_ITS | Encounter Summary ---
Author Organization [facility] Address [address] [place] [address] Care Team Providers Care Pearl Cutter Name Role Phone Corin Skinner MD Primary Care Provider +1- [phone] Encounter Details Date Type Department Care Team (Late st Contact Info) Description 10/21/2008 Before PRISM Converted Visit (Maple) [facility] - Maple conversion [address] [place] [address] Emergency, MD Diya Social History Tobacco Use [...] Visit [facility] Endocrinology - [address] [address] Wilder Zaidi, DO 62 [facility] [address] [place] [address] 09/09/2024 10:20 EST Office Visit [facility] Endocrinology - [address] [address] Day Littlejohn MD PhD [address] [place] [address] [address] [place] [address] documented [...] PF4 ORDERABLES Final Result Performing Organization Address City/State/[facility] Co de Phone Number [facility] [address] [place] [address] documented in this encounter Visit Diagnoses Not on filedocumented in this encounter Care Teams Pearl Cutter Relationship Specialty Start Date End Date Corin Skinner MD [address] [place] [phone] PCP - General 10/24/08 08/21/09 documented as of this encounter
--- OUTSIDE RECORDS SUMMARY | 2024-06-28 13:52 | XMS_ITS | Encounter Summary ---
Author Organization [facility] Address [address] [place] [address] Care Team Providers Care Bracelet Maker Novelty Name Role Phone Corin Skinner MD Primary Care Provider +1- [phone] Encounter Details Date Type Department Care Team (Late st Contact Info) Description 10/21/2008 Before PRISM Converted Visit (Maple) [facility] - Maple conversion [address] [place] [address] Emergency, MD Diya Social History Tobacco Use [...] EST Office Visit [facility] Endocrinology - [address] [address] Wilder Zaidi, DO 62 [facility] [address] [place] [address] 09/09/2024 10:20 EST Office Visit [facility] Endocrinology - [address] [address] Day Littlejohn MD PhD [address] [place] [address] [address] [place] [address] documented as of this encounter [...] ORDER LYNDSEY Final Result Performing Organization Address City/State/[facility] Co de Phone Number [facility] [address] [place] [address] documented in this encounter Visit Diagnoses Not on filedocumented in this encounter Care Teams Bracelet Maker Novelty Relationship Specialty Start Date End Date Corin Skinner MD [address] [place] [phone] PCP - General 10/24/08 08/21/09 documented as of this encounter
--- OUTSIDE RECORDS SUMMARY | 2024-06-28 13:52 | XMS_ITS | Encounter Summary ---
Author Organization [facility] Address [address] [place] [address] Care Team Providers Care Financial Reporting Manager Name Role Phone Corin Skinner MD Primary Care Provider Encounter Details Date Type Department Care Team (Late st Contact Info) Description 10/21/2008 Before PRISM Converted Visit (Maple) [facility] - Maple conversion [address] [place] [address] Christopher Ga MD [address] [place] [phone] Social History Tobacco Use Types Packs/Day [...] Info) Description 07/06/2024 13:40 EST Office Visit [facility] Endocrinology - [facility] [address] [place] [address] Wilder Zaidi DO 62 [facility] [address] [place] [address] 09/09/2024 10:20 EST Office Visit [facility] Endocrinology - [facility] [address] [place] [address] Day Littlejohn MD PhD 62 [facility] [address] [place] [phone] documented as of this encounter Procedures Procedure Name Priority Date/Time Associated Diagnosis Comments PHOSPHORUS Routine 10/21/2008 21:00 EDT documented in this encounter Results * PHOSPHORUS (10/21/2008 21:00 EDT) Phosphorus 3.6 2.5 - 4.5 mg/dl [facility] 10/21/2008 21:0 0 EDT 10/21/2008 21:17 EDT us Christopher Ga MD CHEMISTRY & BLOOD GAS ORDER LYNDSEY Final Result [facility] [address] [place] [address] documented in this encounter Visit Diagnoses Not on filedocumented in this encounter Care Teams Financial Reporting Manager Relationship Specialty Start Date End Date Corin Skinner MD [address] [place] [phone] PCP - General 10/24/08 08/21/09 documented as of this encounter
--- OUTSIDE RECORDS SUMMARY | 2024-06-28 13:52 | XMS_ITS | Encounter Summary ---
Author Organization [facility] Address [address] [place] [address] Care Team Providers Care Domestic Violence Advocate Name Role Phone Unavailable Primary Care Provider Unavailabl e Encounter Details Date Type Department Care Team (Late st Contact Info) Description 07/11/2008 10:40 EST Hospital Encounter [facility] [address] [place] [address] [facility] [address] [place] [phone] Lc Cheng MD 111 [facility], [address] [place] [phone] Social History Tobacco Use Types Packs/Day Years [...] Description 07/06/2024 13:40 EST Office Visit [facility] Endocrinology - [address] [address] Wilder Zaidi, DO 62 [facility] [address] [place] [address] 09/09/2024 10:20 EST Office Visit [facility] Endocrinology - [address] [address] Day Littlejohn MD PhD [address] [address] documented as of this encounter Visit Diagnoses Not on filedocumented in this encounter
--- OUTSIDE RECORDS SUMMARY | 2024-06-28 13:52 | XMS_ITS | Encounter Summary ---
Author Organization [facility] Address [address] [place] [address] Care Team Providers Care Wet Cleaner Machine Name Role Phone Corin Skinner MD Primary Care Provider Encounter Details Date Type Department Care Team (Late st Contact Info) Description 10/21/2008 Before PRISM Converted Visit (Maple) [facility] - Maple conversion [address] [place] [address] Christopher Ga MD [address] [place] [phone] Social History Tobacco Use Types Packs/Day [...] Office Visit [facility] Endocrinology - [facility] [address] [place] [address] Wilder Zaidi DO 62 [facility] [address] [place] [address] 09/09/2024 10:20 EST Office Visit [facility] Endocrinology - [facility] [address] [place] [address] Day Littlejohn MD PhD 62 [facility] [address] [place] [phone] documented as of this encounter Procedures Procedure Name Priority Date/Time Associated Diagnosis Comments ELECTROLYTES Routine 10/21/2008 21:00 EDT documented in this encounter Results * (ABNORMAL) ELECTROLYTES (10/21/2008 21:00 EDT) Sodium 123(LL) 136 - 145 mEq/L [facility] Comment:Sample retested, res ult confirmed Potassium 4.9 3.5 - 5.0 mEq/L [facility] Chloride 97 96 - 110 mEq/L [facility] CO2 21(L) 24 - 32 mEq/L [facility] 10/21/2008 21:0 0 EDT 10/21/2008 21:17 EDT us Christopher Ga MD CHEMISTRY & BLOOD GAS ORDER LYNDSEY Final Result [facility] [address] [place] [address] documented in this encounter Visit Diagnoses Not on filedocumented in this encounter Care Teams Wet Cleaner Machine Relationship Specialty Start Date End Date Corin Skinner MD [address] [place] [phone] PCP - General 10/24/08 08/21/09 documented as of this encounter
--- OUTSIDE RECORDS SUMMARY | 2024-06-28 13:52 | XMS_ITS | Encounter Summary ---
Author Organization [facility] Address [address] [place] [address] Care Team Providers Care Cotton Weigher Operator Name Role Phone Corin Skinner MD Primary Care Provider [phone] Encounter Details Date Type Department Care Team (Late st Contact Info) Description 08/13/2008 Office Visit [facility] - Maple conversion [address] [place] [address] Slava Pineda MD Social History Tobacco Use [...] M.D. 08/13/2008 16:19) Addenda for MIGUEL ANGEL BURGOS JR VisitID: [id number] Date: 08/13/2008 08/13/2008 10:30 Dr. Amaro refers [...] Alert. --1044 Juan QuezadaN.. Medications (Melatonin). --1403 Jazz Tatum R.N. Hydrocortisone Tablets: 10mg (at 7am 5mg at noon and 430pm). Levothyroxine: 200 mcg daily. Multivitamins. Potassium: 20meq. Quetiapine (400mg). Ranitidine: 150 mg. Restoril: 15mg daily. Vitamin D- (cholecalciferol). (Zonogram 50mg daily Desmopressin .4mcg subq). (Modafinil 200mg daily). --1415 Juan HandyN.. ). --1129 Kathy Gold R.N.. Allergies (lopid). --1044 Kathy Gold R.N.. History Chief Complaint: (seizure?). This started today. Pain level: unable to quantify. (pt has had facial and body twitching which started about 20 min ago, increased weakness. Pt has these symptoms when he is going to have grand mal seizure. ). No fever. Treatment ENGINE BUILDUP MECHANIC: None. PAST HX: (traumatic brain injury, seizures). [...] (Hydrocortisone 5mg PO). --1400 Rachel Reynolds R.N., [place] BP: 118/65. HR: 70. O2 saturation: 100% [...] 5 mL normal saline; (right FA by MILL FEEDER, rainbow to lab (first attempt unsuccessful by MILL FEEDER in right AC)). --1259 Nyasia Morelos R.N., [place] IV bag #1 of 500 mL NS; rate = wide open. --1441 Rachel Reynolds R.N., [place] IV fluids discontinued. IV bag #1. INTAKE: 500 mL. --1545 Lucille Carlson R.N.. DISPOSITION / DISCHARGE Report was given (Latrice ROMERO). Transported via stretcher by [facility] with IV. Admitted to pediatrics. --1546 Lucille Carlson R.N.. Kathy Gold R.N. Anabelle Perez R.N. Lucille Carlson R.N. Nyasia Morelos R.N., [facility] Rachel Reynolds R.N., [place] Locked/Released at 08/13/2008 16:08 by Lucille Carlson R.N. documented in this encounter Plan of Treatment Upcoming Encounters Date Type Department Care Team (Late st Contact Info) Description 07/06/2024 13:40 EST Office Visit [facility] Endocrinology - [address] [address] Wilder Zaidi, [address] [place] [phone] 09/09/2024 10:20 EST Office Visit [facility] Endocrinology - [address] [address] Day Littlejohn MD PhD [address] [place] [phone] documented as of this encounter Visit Diagnoses Not on filedocumented in this encounter Care Teams Cotton Weigher Operator Relationship Specialty Start Date End Date Corin Skinner MD [address] [place] [phone] PCP - General 10/24/08 08/21/09 documented as of this encounter
--- OUTSIDE RECORDS SUMMARY | 2024-06-28 13:52 | XMS_ITS | Encounter Summary ---
Author Organization [facility] Address [address] [place] [address] Care Team Providers Care Setter Molding And Coremaking Machines Name Role Phone Corin Skinner MD Primary Care Provider [phone]- [phone] Encounter Details Date Type Department Care Team (Late st Contact Info) Description 07/03/2008 Office Visit [facility] - Maple conversion [address] [place] [address] Arcadio Gamboa MD 111 [facility], Level 1 [place] [phone] Social History Tobacco Use Types Packs/Day Years [...] signed by Arcadio Gamboa MD 07/03/2008 17:52) Addenda for MIGUEL ANGEL MASON JR VisitID: [id number] Date: 07/03/2008 07/03/2008 12:16 DR. MACKAY PT [...] --1527 Lucille Carlson R.N. (Paediatric Residents and Ekg Manager at bedside). --1528 Lucille Carlson R.N. 16 fr morse catheter placed using sterile technique and attached to bedside drainage bag, with return of yellow-colored clear urine. The patient tolerated procedure well (inserted by Paediatric Resident Judy Clarke). --1537 Lucille Carlson R.N. (Patient appears more responsive). --1538 Lucille Carlson R.N. Patient transported to [facility] by stretcher with EasyProve. --1613 Lucille Carlson R.N. VANCOMYCIN 1 gram [...] gm IVPB infused, completed and discontinued. . --164 Lucille Carlson R.N. VANCOMYCIN 1 gram in 200mls IVPB (pre-mix) over 1 hour, via IV pump. IV patency established. IV site checked: no pain, redness, or swelling. IV flushed thoroughly pre- and post-medication administration. . --164 Lucille Carlson R.N.. IV / I&O Flowsheet IV Site #1. IV access: right antecubital space. IV start unsuccessful, with 22g angiocath; two attempts. --1512 Lucille Carlson R.N. (22g IV access in left inner wrist by CHEESE MAKER). --151 Lucille Carlson R.N. IV Site #2. IV access: left foot. IV started in ED; (22g IV access by CHEESE MAKER). --1522 Lucille Carlson R.N. Blood samples drawn. [...] was given (Kp). Transported via stretcher by EasyProve (NS running STAT, 1gm Vancomycin running via pump). Admitted to pediatrics. --172 Lucille Carlson R.N. Transported via stretcher by transport team (and hospital sitter). --173 Abigail Woodall R.N.. Jazz Carlson R.N. Nithin Morgan Abigail Woodall R.N. Locked/Released at 07/03/2008 17:33 by Abigail Woodall R.N. documented in this encounter Plan of Treatment Upcoming Encounters Date Type Department Care Team (Late st Contact Info) Description 07/06/2024 13:40 EST Office Visit [facility] Endocrinology - [address] [address] Wilder Zaidi, [address] [place] [phone] 09/09/2024 10:20 EST Office Visit [address] [address] Day Littlejohn MD PhD [address] [place] [phone] documented as of this encounter Visit Diagnoses Not on filedocumented in this encounter Care Teams Setter Molding And Coremaking Machines Relationship Specialty Start Date End Date Corin Skinner MD [address] [place] [phone] PCP - General 10/24/08 08/21/09 documented as of this encounter
--- OUTSIDE RECORDS SUMMARY | 2024-06-28 13:52 | XMS_ITS | Encounter Summary ---
Author Organization [facility] Address [address] [place] [address] Care Team Providers Care Lumber Yard Worker Name Role Phone Corin Skinner MD Primary Care Provider [phone]- [phone] Encounter Details Date Type Department Care Team (Late st Contact Info) Description 07/11/2008 Before PRISM Converted Visit (Maple) [facility] - Maple conversion [address] [place] [address] Lc Cheng MD 111 [facility], [address] [place] [address] Social History Tobacco Use Types [...] Edwards MD [facility] [address] [place] [address] Edwards; The father of 18-year-old [...] Cheng MD - Lc Cheng MD - CJDalton Job ID: [id number] Doc ID: [id number] cc: MD Skyler Singh MD documented in this encounter Plan of Treatment Upcoming Encounters Date Type Department Care Team (Late st Contact Info) Description 07/06/2024 13:40 EST Office Visit [facility] Endocrinology - [address] [address] Wilder Zaidi, DO [address] [place] [phone] 09/09/2024 10:20 EST Office Visit [facility] Endocrinology [address] [address] Day Littlejohn MD PhD [address] [place] [phone] documented as of this encounter Visit Diagnoses Not on filedocumented in this encounter Care Teams Lumber Yard Worker Relationship Specialty Start Date End Date Corin Skinner MD [address] [place] [phone] PCP - General 10/24/08 08/21/09 documented as of this encounter
--- OUTSIDE RECORDS SUMMARY | 2024-06-28 13:52 | XMS_ITS | Encounter Summary ---
Author Organization [facility] Address [address] [place] [address] Care Team Providers Care Physician Practice Manager Name Role Phone Corin Skinner MD Primary Care Provider [phone]- [phone] Encounter Details Date Type Department Care Team (Late st Contact Info) Description 10/21/2008 Before PRISM Converted Visit (Maple) [facility] - Maple conversion [address] [place] [address] Emergency, MD iDya Social History Tobacco Use Types Packs/Day Years [...] EST Office Visit [facility] Endocrinology - [address] [address] Wilder Zaidi, DO 62 [facility] [address] [place] [address] 09/09/2024 10:20 EST Office Visit [facility] Endocrinology - [address] [address] Day Littlejohn MD PhD [address] [place] [address] [address] [place] [address] documented as of this encounter Procedures Procedure Name Priority Date/Time Associated Diagnosis Comments ELECTROLYTES Routine 10/21/2008 17:54 EDT documented in this encounter Results * (ABNORMAL) ELECTROLYTES (10/21/2008 17:54 EDT) Sodium 120(LL) 136 - 145 mEq/L [facility] Comment:Sample retested, res ult confirmed Potassium 4.7 3.5 - 5.0 mEq/L [facility] Chloride 96 96 - 110 mEq/L [facility] CO2 20(L) 24 - 32 mEq/L [facility] 10/21/2008 17:5 4 EDT 10/21/2008 17:54 EDT us Default Emergency MD CHEMISTRY & BLOOD GAS ORDER LYNDSEY Final Result Performing Organization Address City/State/[facility] Co de Phone Number [facility] [address] [place] [address] documented in this encounter Visit Diagnoses Not on filedocumented in this encounter Care Teams Physician Practice Manager Relationship Specialty Start Date End Date Corin Skinner MD [address] [place] [phone] PCP - General 10/24/08 08/21/09 documented as of this encounter
--- OUTSIDE RECORDS SUMMARY | 2024-06-28 13:55 | XMS_ITS | Encounter Summary ---
Author Organization [facility] Address [address] [place] [address] Care Team Providers Care Enrollment Specialist Name Role Phone Corin Skinner MD Primary Care Provider [phone] Encounter Details Date Type Department Care Team (Late st Contact Info) Description 02/08/2008 Before PRISM Converted Visit (Maple) [facility] - Maple conversion [address] [place] [address] Rui Bazan MD Social History Tobacco Use Types Packs/Day Years Used Date Smoking Tobacco: Never Assessed Sex and Gender Information Value Date Recorded Sex Assigned at Not on file Legal Sex Male 18:35 EST Gender Identity Not on file Sexual Orientation Not on file documented as of this encounter Consult Notes * Rui Bazan III, MD - 04/03/2009 1368 EDT CONSULTATION - 02/08/2008 NEUROLOGY HEALTH CARE [...] before the family had gone out for [employer] food. He had had his medications at the usual time at 4:30 p.m. While at the [employer] the family stated that his body [...] Bazan III, MD - CHRISSY Job ID: [id number] Doc ID: [id number] cc: Yan Demarco MD documented in this encounter Plan of Treatment Upcoming Encounters Date Type Department Care Team (Late st Contact Info) Description 07/06/2024 13:40 EST Office Visit [facility] Endocrinology [address] [id number] Wilder Zaidi, [address] [place] [address] [address] [place] [phone] 09/09/2024 10:20 EST Office Visit [facility] Endocrinology - [address] [id number] Day Littlejohn MD PhD [address] [facility] [address] [place] [address] documented as of this encounter Visit Diagnoses Not on filedocumented in this encounter Care Teams Enrollment Specialist Relationship Specialty Start Date End Date Corin Skinner MD [address] [place] [phone] PCP - General 10/24/08 08/21/09 documented as of this encounter
--- OUTSIDE RECORDS SUMMARY | 2024-06-28 13:55 | XMS_ITS | Encounter Summary ---
Author Organization [facility] Address [address] [place] [address] Care Team Providers Care Marine Equipment Test Engineer Name Role Phone Unavailable Primary Care Provider Unavailabl e Encounter Details Date Type Department Care Team (Late st Contact Info) Description 05/08/2008 5:55 EST - 06/01/2008 11:59 EST Hospital Encounter [facility] [address] [place], [place] [id number] Millicent Garcia MD [address] [place] [address] Jose Alejandro Castro MD Discharge Disposition: Home-Health [...] Anatoliy Choudhury MD - 01/15/2009 0552 EDT HISS DISCHARGE SUMMARY ADDRESS: [address] [place] [id number] PHONE: [phone] ATTENDING PHYSICIAN: MILLICENT GARCIA MD ADDRESS: [facility] [address] [place] [address] PHONE: [phone] REFERRING PHYSICIAN: ALANA MARTINEZ MD ADDRESS: [facility] [address] [place] [address] PHONE: [phone] ADMISSION DATE: 05/08/08 SERVICE: PED. MEDICINE TRANSFER TO IP: DISCHARGE DATE: 06/01/08 SERVICE: PED. MEDICINE CHIEF COMPLAINT / REASON FOR ADMISSION: Respiratory distress PRINCIPAL/FINAL DIAGNOSIS: RLL PNA SECONDARY/FINAL DIAGNOSIS: Central diabetes insipidus Developmental delay Cortical blindness Seizures Panhypopituitarism Left hemiparesis PRINCIPAL PROCEDURE: PICC line placement CONDITION AT DISCHARGE: Stable Improved DISPOSITION AT DISCHARGE: Home with home health services - Speech, PT, OT, RETAIL ACCOUNT MANAGER-resume previous ALLERGIES: The following allergies were reported [...] STOPPED: NONE HERBAL REMEDIES, NUTRITIONAL SUPPLEMENTS, AND [id number] MEDICATIONS that have not been prescribed by a physician may have significant adverse side effect or may interfere with the medications that have been prescribed for you. If you are taking herbal remedies, nutritional supplements, or zkbo-xlh-tfycmfb medications you are strongly encouraged to discontinue [...] 05/30/08. Neuro - [facility] secondary to increased somnolence and ataxia on [...] to Dr. Demarco or [facility]. If Na < 132 or Na > 142, or if K+ < 3.8, page Dr. NAVI Edwards (even if not concessions manager). - Check weight daily. If > 1kg [...] RN ____ on @ __:__ fax : [phone] Day of discharge referral call by: on __/__/__ @ __:__ Spoke with: / Agency: Date/time of first visit needed: __/__/__ @ __:__ Discharged on __/__/__ @ __:__ with: To address: Phone: cashier and salesperson: Phone: Relationship: HOME INFUSION: IV Access Solo Power PICC Type Valved Catheter Date inserted 05/18/08 Last flushed Last drsg change 05/28/08 (external length 8cm) In-hospital teaching RE: Line care VENDOR [facility] OUTPT Pharmacy PATIENT/FAMILY EDUCATION: Central Line Care PATIENT/FAMILY EDUCATION: Subcutaneous Injection cc: MD Dr. NAVI CASTILLO (Pedi Endo) Dr. Demarco (PCP) ADDENDUM: Additional medication: zonisamide (Zonegran) 50mg PO daily (for seizures) END OF REPORT D: ANATOLIY CHOUDHURY MD P - ZOHDocument ID: [id number] documented in this encounter Discharge Disposition Disposition Code Departure Means Destination Home-Health Care [facility] documented in this encounter Progress Notes * [...] history as below, who was transported from [place] with respiratory failure and pneumonia in the setting of two weeks of cough and congestion. At 0200 on the morning of admission, his stepmom noted his respiratory distress had acutely worsened and he was transported by EMS to [place]. There, he required bag mask ventilation, intubation and mechanical ventilation. He [facility] [...] not tolerating p.o. of any consistency and RECONSTRUCTIVE DENTIST was consulted on May 12, 2008. Bedside [...] His parents had been restricting him to [id number] zurdo/day to maintain a weight of 160-170#. [...] stabilized on mechanical ventilation prior to transport andresdined on the ventilator for two days. On [...] from 12:15 to 1:15 with all of [place] care providers and family to discuss his disposition and coordination of care. DISPOSITION Transfer to [place] [address]. CONDITION AT DISCHARGE Stable. Supervising Physician Signed by Alanna Neil MD 05/30/2008 15:03 Zain Hdz MD Alanna Neil MD - Zain Hdz MD A - [facility] Job ID: [id number] Document ID: [id number] cc: MD Zain Walker, MD Alanna Bell MD Roger C Knakal, MD Daniel W Larrow, MD William V Raszka, MD Christopher Ga, MD Jodi Parr, MD Skyler Edwards MD * Lc Cheng MD - 05/12/2008 0000 EST INPATIENT PROGRESS NOTE Service Date: 05/12/2008 PT LOC: M003 This is an inpatient followup consultation at the request of Dr Alanna Neil for this [id number] complicated problems centering around earlier operative craniopharyngioma. [...] neurologically related to his earlier and static STOCK WORKER injury (bilateral thalamic hemorrhagicischemic changes). His examination [...] no definite evidence of a superimposed acquired STOCK WORKER injury ie hypoxic, ischemic or otherwise. I [...] Cheng MD P - [facility] Job ID: [id number] Document ID: [id number] cc: MD Jose Alejandro Walker MD Amelia Hopkins, MD Stewart Marcell, MD documented in this encounter Consult Notes [...] transsphenoidal resection and craniotomy. [facility] [place] on May 08, 2008, with respiratory failure [...] are doing to include PT, OT, and RECONSTRUCTIVE DENTIST. 2. Solar Water Heater Installer to clarify home disposition issues and assistance [...] MD 05/19/2008 14:21 Wicho Carlton MD - Wicho Carlton MD P - Job ID: [id number] Document ID: [id number] cc: Alexis Ocampo III, MD Barry W [...] neurology resident, Dr. Carr. Miguel Angel is [id number] and has a history of operated craniopharyngioma [...] respiratory distress culminating in presentation here early Friday, May 08, 2008, via [facility]. He had mild hypotension, 82/54, with fluid [...] his care and he was transferred to [facility], and, in the course of that hospitalization, [...] Lc Cheng MD P - Job ID: [id number] Document ID: [id number] cc: MD Jose Alejandro Walker MD Stewart Manchester, MD documented in this encounter Plan of Treatment Upcoming Encounters Date Type Department Care Team (Late st Contact Info) Description 07/06/2024 13:40 EST Office Visit [facility] Endocrinology - [address] [address] Wilder Zaidi, [address] [facility] [address] [place] [address] 09/09/2024 10:20 EST Office Visit [facility] Endocrinology - [address] [address] Day Littlejohn MD PhD [address] [address] documented as of this encounter [...] 70 - 100 mg/dl [facility] 06/01/2008 5:06 EST 06/01/2008 5:35 EST Jodi Parr MD CHEMISTRY & BLOOD GAS ORDERABLE S Final Result Performing Organization Address [facility] Co de Phone Number [facility] [address] [place] [address] * CREATININE (06/01/2008 5:06 EST) Creatinine 0.71 0.6 - 1.2 mg/dl [facility] GFR, Calculated Age <18 ml/min/1.7 3m2 [facility] 06/01/2008 5:06 EST 06/01/2008 5:35 EST Jodi aPrr MD CHEMISTRY & BLOOD GAS ORDERABLE S Final Result Performing Organization Address [facility] de Phone Number [facility] [address] [place] [address] * BUN (06/01/2008 5:06 EST) BUN 16 8 - 21 mg/dl [facility] 06/01/2008 5:06 EST 06/01/2008 5:35 EST Jodi Parr MD CHEMISTRY & BLOOD GAS ORDERABLE S Final Result Performing Organization Address [facility] Co de Phone Number [facility] [address] [place] [address] * (ABNORMAL) ELECTROLYTES (06/01/2008 5:06 EST) Sodium 138 136 - 145 mEq/L [facility] Potassium 4.0 3.5 - 5.0 mEq/L [facility] Chloride 103 96 - 110 mEq/L [facility] CO2 23(L) 24 - 32 mEq/L [facility] 06/01/2008 5:06 EST 06/01/2008 5:35 EST us Jodi Parr MD CHEMISTRY & BLOOD GAS ORDERABLE S Final Result Performing Organization Address [facility] de Phone Number [facility] [address] [place] [address] * ELECTROLYTES (05/31/2008 18:00 EST) Sodium 137 136 - 145 mEq/L [facility] Potassium 3.8 3.5 - 5.0 mEq/L [facility] Chloride 99 96 - 110 mEq/L [facility] CO2 24 24 - 32 mEq/L [facility] 05/31/2008 18:0 0 EST 05/31/2008 18:56 EST us Jodi Parr MD CHEMISTRY & BLOOD GAS ORDERABLE S Final Result Performing Organization Address [facility] de Phone Number [facility] [address] [place] [address] * ELECTROLYTES (05/31/2008 12:20 EST) Sodium 136 136 - 145 mEq/L [facility] Potassium 3.5 3.5 - 5.0 mEq/L [facility] Chloride 97 96 - 110 mEq/L [facility] CO2 25 24 - 32 mEq/L [facility] 05/31/2008 12:2 0 EST 05/31/2008 12:32 EST us Jodi Parr MD CHEMISTRY & BLOOD GAS ORDERABLE S Final Result Performing Organization Address [facility] Co de Phone Number [facility] [address] [place] [address] * (ABNORMAL) GLUCOSE, SERUM (05/31/2008 6:00 EST) Glucose, Serum 67(L) 70 - 100 mg/dl [facility] 05/31/2008 6:00 EST 05/31/2008 6:24 EST Jodi Parr MD CHEMISTRY & BLOOD GAS ORDERABLE S Final Result Performing Organization Address [facility] Co de Phone Number [facility] [address] [place] [address] * CREATININE (05/31/2008 6:00 EST) Creatinine 0.70 0.6 - 1.2 mg/dl [facility] GFR, Calculated Age <18 ml/min/1.7 3m2 [facility] 05/31/2008 6:00 EST 05/31/2008 6:24 EST Jodi Parr MD CHEMISTRY & BLOOD GAS ORDERABLE S Final Result Performing Organization Address [facility] Co de Phone Number [facility] [address] [place] [address] * BUN (05/31/2008 6:00 EST) BUN 18 8 - 21 mg/dl [facility] 05/31/2008 6:00 EST 05/31/2008 6:24 EST Jodi Parr MD CHEMISTRY & BLOOD GAS ORDERABLE S Final Result Performing Organization Address [facility] Co de Phone Number [facility] [address] [place] [address] * (ABNORMAL) ELECTROLYTES (05/31/2008 6:00 EST) Sodium 135(L) 136 - 145 mEq/L [facility] Potassium 4.3 3.5 - 5.0 mEq/L [facility] Chloride 100 96 - 110 mEq/L [facility] CO2 22(L) 24 - 32 mEq/L [facility] 05/31/2008 6:00 EST 05/31/2008 6:24 EST us Jodi Parr MD CHEMISTRY & BLOOD GAS ORDERABLE S Final Result Performing Organization Address [facility] de Phone Number [facility] [address] [place] [address] * (ABNORMAL) ELECTROLYTES (05/30/2008 18:00 EST) Sodium 136 136 - 145 mEq/L [facility] Comment:Slightly lipemic Potassium 4.1 3.5 - 5.0 mEq/L [facility] Comment:Slightly lipemic Chloride 98 96 - 110 mEq/L [facility] Comment:Slightly lipemic CO2 21(L) 24 - 32 mEq/L [facility] Comment:Slightly lipemic 05/30/2008 18:0 0 EST 05/30/2008 19:02 EST us Jodi Parr MD CHEMISTRY & BLOOD GAS ORDERABLE S Final Result Performing Organization Address [facility] de Phone Number [facility] [address] [place] [address] * ELECTROLYTES (05/30/2008 12:25 EST) Sodium 136 136 - 145 mEq/L [facility] Potassium 3.7 3.5 - 5.0 mEq/L [facility] Chloride 97 96 - 110 mEq/L [facility] CO2 25 24 - 32 mEq/L [facility] 05/30/2008 12:2 5 EST 05/30/2008 12:33 EST us Jodi Parr MD CHEMISTRY & BLOOD GAS ORDERABLE S Final Result Performing Organization Address [facility] de Phone Number [facility] [address] [place] [address] * (ABNORMAL) GLUCOSE, SERUM (05/30/2008 5:10 EST) Glucose, Serum 63(L) 70 - 100 mg/dl [facility] 05/30/2008 5:10 EST 05/30/2008 5:32 EST us Jodi Parr MD CHEMISTRY & BLOOD GAS ORDERABLE S Final Result Performing Organization Address [facility] Co de Phone Number [facility] [address] [place] [address] * CREATININE (05/30/2008 5:10 EST) Creatinine 0.70 0.6 - 1.2 mg/dl [facility] GFR, Calculated Age <18 ml/min/1.7 3m2 [facility] 05/30/2008 5:10 EST 05/30/2008 5:32 EST us Jodi Parr MD CHEMISTRY & BLOOD GAS ORDERABLE S Final Result Performing Organization Address [facility] Phone Number [facility] [address] [place] [address] * BUN (05/30/2008 5:10 EST) BUN 16 8 - 21 mg/dl [facility] 05/30/2008 5:10 EST 05/30/2008 5:32 EST us Jodi Parr MD CHEMISTRY & BLOOD GAS ORDERABLE S Final Result Performing Organization Address [facility] de Phone Number [facility] [address] [place] [address] * (ABNORMAL) ELECTROLYTES (05/30/2008 5:10 EST) Sodium 132(L) 136 - 145 mEq/L [facility] Potassium 4.4 3.5 - 5.0 mEq/L [facility] Chloride 98 96 - 110 mEq/L [facility] CO2 25 24 - 32 mEq/L [facility] 05/30/2008 5:10 EST 05/30/2008 5:32 EST us Jodi Parr MD CHEMISTRY & BLOOD GAS ORDERABLE S Final Result Performing Organization Address [facility] de Phone Number [facility] [address] [place] [address] * (ABNORMAL) ELECTROLYTES (05/29/2008 18:00 EST) Sodium [...] Jose Alejandro Castro MD CHEMISTRY & BLOOD GAS ORDERABLE S Final Result Performing Organization Address [facility] de Phone Number [facility] [address] [place] [address] * (ABNORMAL) ELECTROLYTES (05/29/2008 12:32 EST) Sodium 134(L) 136 - 145 mEq/L [facility] Comment:Heparinized plasma. Potassium 3.7 3.5 - 5.0 mEq/L [facility] Comment:Heparinized plasma. Chloride 97 96 - 110 mEq/L [facility] Comment:Heparinized plasma. CO2 25 24 - 32 mEq/L [facility] Comment:Heparinized plasma. 05/29/2008 12:3 2 EST 05/29/2008 12:32 EST us Jodi Parr MD CHEMISTRY & BLOOD GAS ORDERABLE S Final Result Performing Organization Address [facility] de Phone Number [facility] [address] [place] [address] * (ABNORMAL) GLUCOSE, SERUM (05/29/2008 6:55 EST) Glucose, Serum 62(L) 70 - 100 mg/dl [facility] 05/29/2008 6:55 EST 05/29/2008 7:36 EST us Jose Alejandro Castro MD CHEMISTRY & BLOOD GAS ORDERABLE S Final Result Performing Organization Address City/[facility] Co de Phone Number [facility] [address] [place] [address] * CREATININE (05/29/2008 6:55 EST) Creatinine 0.60 0.6 - 1.2 mg/dl [facility] GFR, Calculated Age <18 ml/min/1.7 3m2 [facility] 05/29/2008 6:55 EST 05/29/2008 7:36 EST us Jose Alejandro Castro MD CHEMISTRY & BLOOD GAS ORDERABLE S Final Result Performing Organization Address [facility] Phone Number [facility] [address] [place] [address] * BUN (05/29/2008 6:55 EST) BUN 16 8 - 21 mg/dl [facility] 05/29/2008 6:55 EST 05/29/2008 7:36 EST us Jose Alejandro Castro MD CHEMISTRY & BLOOD GAS ORDERABLE S Final Result Performing Organization Address [facility] de Phone Number [facility] [address] [place] [address] * (ABNORMAL) ELECTROLYTES (05/29/2008 6:55 EST) Sodium 134(L) 136 - 145 mEq/L [facility] Potassium 4.0 3.5 - 5.0 mEq/L [facility] Chloride 99 96 - 110 mEq/L [facility] CO2 22(L) 24 - 32 mEq/L [facility] 05/29/2008 6:55 EST 05/29/2008 7:36 EST us Jose Alejandro Castro MD CHEMISTRY & BLOOD GAS ORDERABLE S Final Result Performing Organization Address City/[facility]/ZIP Co de Phone Number [facility] [address] [place] [address] * ELECTROLYTES (05/28/2008 19:00 EST) Sodium 136 136 - 145 mEq/L [facility] Potassium 4.2 3.5 - 5.0 mEq/L [facility] Chloride 98 96 - 110 mEq/L [facility] CO2 26 24 - 32 mEq/L [facility] 05/28/2008 19:0 0 EST 05/28/2008 19:12 EST Jose Alejandro Castro MD CHEMISTRY & BLOOD GAS ORDERABLE S Final Result [facility] [address] [place] [address] * (ABNORMAL) GLUCOSE, SERUM (05/28/2008 6:59 EST) Glucose, Serum 66(L) 70 - 100 mg/dl [facility] 05/28/2008 6:59 EST 05/28/2008 6:59 EST Jose Alejandro Castro MD CHEMISTRY & BLOOD GAS ORDERABLE S Final Result Performing Organization Address City/[facility]/ZIP Co de Phone Number [facility] [address] [place] [address] * (ABNORMAL) CREATININE (05/28/2008 6:59 EST) Creatinine 0.50(L) 0.6 - 1.2 mg/dl [facility] GFR, Calculated Age <18 ml/min/1.7 3m2 [facility] 05/28/2008 6:59 EST 05/28/2008 6:59 EST Jose Alejandro Castro MD CHEMISTRY & BLOOD GAS ORDERABLE S Final Result [facility] [address] [place] [address] * BUN (05/28/2008 6:59 EST) BUN 15 8 - 21 mg/dl [facility] 05/28/2008 6:59 EST 05/28/2008 6:59 EST Jose Alejandro Castro MD CHEMISTRY & BLOOD GAS ORDERABLE S Final Result Performing Organization Address [facility] Co de Phone Number [facility] [address] [place] [address] * (ABNORMAL) ELECTROLYTES (05/28/2008 6:59 EST) Sodium 134(L) 136 - 145 mEq/L [facility] Potassium 4.4 3.5 - 5.0 mEq/L [facility] Chloride 99 96 - 110 mEq/L [facility] CO2 25 24 - 32 mEq/L [facility] 05/28/2008 6:59 EST 05/28/2008 6:59 EST Jose Alejandro Castro MD CHEMISTRY & BLOOD GAS ORDERABLE S Final Result Performing Organization Address [facility] de Phone Number [facility] [address] [place] [address] * (ABNORMAL) CREATININE (05/27/2008 19:07 EST) Creatinine 0.50(L) 0.6 - 1.2 mg/dl [facility] GFR, Calculated Age <18 ml/min/1.7 3m2 [facility] 05/27/2008 19:0 7 EST 05/27/2008 19:07 EST Jose Alejandro Castro MD CHEMISTRY & BLOOD GAS ORDERABLE S Final Result Performing Organization Address [facility] Co de Phone Number [facility] [address] [place] [address] * BUN (05/27/2008 19:07 EST) BUN 16 8 - 21 mg/dl [facility] 05/27/2008 19:0 7 EST 05/27/2008 19:07 EST Jose Alejandro Castro MD CHEMISTRY & BLOOD GAS ORDERABLE S Final Result Performing Organization Address [facility] Co de Phone Number [facility] [address] [place] [address] * TESTS ADDED BY PHONE (05/27/2008 19:07 EST) Tests to be added STAT KEELY WRIGHTAT [facility] Who Called DR ALDO [facility] Location Code M3 [facility] 05/27/2008 19:0 7 EST 05/27/2008 19:07 EST us Jose Alejandro Castro MD CHEMISTRY & BLOOD GAS ORDERABLE S Final Result Performing Organization Address [facility] de Phone Number [facility] [address] [place] [address] * (ABNORMAL) ELECTROLYTES (05/27/2008 19:07 EST) Sodium 135(L) 136 - 145 mEq/L [facility] Potassium 3.8 3.5 - 5.0 mEq/L [facility] Chloride 98 96 - 110 mEq/L [facility] CO2 26 24 - 32 mEq/L [facility] 05/27/2008 19:0 7 EST 05/27/2008 19:07 EST us Jose Alejandro Castro MD CHEMISTRY & BLOOD GAS ORDERABLE S Final Result Performing Organization Address [facility] de Phone Number [facility] [address] [place] [address] * (ABNORMAL) GLUCOSE, GLUCOMETER (05/27/2008 16:21 EST) Glucose, Fingerstick 124(H) 70 - 100 mg/dl [facility] Corrections Counselor ID [id number] Test Performed by Nursing Services [facility] 05/27/2008 16:2 1 EST 05/27/2008 23:27 EST us Jose Alejandro Castro MD CHEMISTRY & BLOOD GAS ORDERABLE S Final Result Performing Organization Address City/State/[facility] Co de Phone Number [facility] [address] [place] [address] * (ABNORMAL) ELECTROLYTES (05/27/2008 16:21 EST) Pathologist [facility] Sodium 134(L) 136 - 145 mEq/L [facility] Potassium 3.9 3.5 - 5.0 mEq/L [facility] Chloride 97 96 - 110 mEq/L [facility] CO2 26 24 - 32 mEq/L [facility] 05/27/2008 16:2 1 EST 05/27/2008 16:21 EST us Jose Alejandro Castro MD CHEMISTRY & BLOOD GAS ORDERABLE S Final Result Performing Organization Address [facility] Co de Phone Number [facility] [address] [place] [address] * GLUCOSE, GLUCOMETER (05/27/2008 12:26 EST) [facility] Glucose, Fingerstick 87 70 - 100 mg/dl [facility] Corrections Counselor ID [id number] Test Performed by Nursing Services [facility] 05/27/2008 12:2 6 EST 05/27/2008 23:27 EST Jose Alejandro Castro MD CHEMISTRY & BLOOD GAS ORDERABLE S Final Result Performing Organization Address [facility] de Phone Number [facility] [address] [place] [address] * BACTERIAL CULTURE, URINE (05/27/2008 12:04 EST) [facility] Specimen Description Urine [facility] Result No growth [facility] Report Status Final 05/28/2008 [facility] 05/27/2008 12:0 4 EST 05/27/2008 13:14 EST us Jose Alejandro Castro MD MICROBIOLOGY - GENERAL ORDERABL ES Final Result Performing Organization Address [facility] Co de Phone Number [facility] [address] [place] [address] * (ABNORMAL) URINALYSIS, CHEMICAL (05/27/2008 12:04 EST) Color, UA Yellow [facility] Clarity, UA Clear [facility] Glucose, UA Norm NORM [facility] Bilirubin, UA Neg NEG [facility] Ketones, UA Neg NEG [facility] Specific Kinde, Urine >1.030(H) 1.005 - 1.02 [facility] Blood, UA Small(A) NEG [facility] pH, UA 5.5 5.0 - 9.0 [facility] Protein, UA Trace(A) NEG [facility] Urobilinogen, UA Norm NORM mg/dL [facility] Nitrite, UA Neg NEG [facility] Leuk Esterase Neg NEG [facility] Refractometer SG,Urine 1.028(H) 1.005 - 1.02 [facility] 05/27/2008 12:0 4 EST 05/27/2008 13:15 EST Jose Alejandro Castro MD URINALYSIS ORDERABLES Final Res ult [facility] [address] [place] [address] * URINE MICROSCOPIC (05/27/2008 12:04 EST) WBC, UA 1 to 5 0 - 5 /HPF [facility] RBC, UA 5 to 10 0 - 5 /HPF [facility] Squam Epithel, UA None seen NS /HPF [facility] Renal Epithel, UA None seen NS /HPF [facility] Bacteria, UA None seen NS /HPF [facility] Crystals, UA 1 to 10 /HPF [facility] Comment:Calcium Oxalate Hyaline Casts, UA None seen /LPF [facility] Comment Microscopic results are unreliable on urines unrefrig >2hrs or refrig >8hrs. [facility] Mucus, UA Present [facility] 05/27/2008 12:0 4 EST 05/27/2008 13:15 EST Jose Alejandro Castro MD URINALYSIS ORDERABLES Final Res ult Performing Organization Address [facility] de Phone Number [facility] [address] [place] [address] * (ABNORMAL) ELECTROLYTES (05/27/2008 11:45 EST) Sodium 135(L) 136 - 145 mEq/L [facility] Potassium 4.1 3.5 - 5.0 mEq/L [facility] Chloride 97 96 - 110 mEq/L [facility] CO2 26 24 - 32 mEq/L [facility] 05/27/2008 11:4 5 EST 05/27/2008 11:45 EST Jose Alejandro Castro MD CHEMISTRY & BLOOD GAS ORDERABLE S Final Result Performing Organization Address [facility] de Phone Number [facility] [address] [place] [address] * GLUCOSE, SERUM (05/27/2008 6:45 EST) Glucose, Serum 74 70 - 100 mg/dl [facility] 05/27/2008 6:45 EST 05/27/2008 6:55 EST Jose Alejandro Castro MD CHEMISTRY & BLOOD GAS ORDERABLE S Final Result Performing Organization Address [facility] de Phone Number [facility] [address] [place] [address] * (ABNORMAL) ELECTROLYTES (05/27/2008 6:45 EST) Sodium 133(L) 136 - 145 mEq/L [facility] Potassium 3.9 3.5 - 5.0 mEq/L [facility] Chloride 98 96 - 110 mEq/L [facility] CO2 25 24 - 32 mEq/L [facility] 05/27/2008 6:45 EST 05/27/2008 6:55 EST Jose Alejandro Castro MD CHEMISTRY & BLOOD GAS ORDERABLE S Final Result Performing Organization Address City/[facility]/ZIP Co de Phone Number [facility] [address] [place] [address] * CREATININE (05/27/2008 3:00 EST) Creatinine 0.60 0.6 - 1.2 mg/dl [facility] GFR, Calculated Age <18 ml/min/1.7 3m2 [facility] 05/27/2008 3:00 EST 05/27/2008 3:06 EST Jose Alejandro Castro MD CHEMISTRY & BLOOD GAS ORDERABLE S Final Result Performing Organization Address [facility] de Phone Number [facility] [address] [place] [address] * (ABNORMAL) BUN (05/27/2008 3:00 EST) Pathologist [facility] BUN 22(H) 8 - 21 mg/dl [facility] 05/27/2008 3:00 EST 05/27/2008 3:06 EST us Jose Alejandro Castro MD CHEMISTRY & BLOOD GAS ORDERABLE S Final Result Performing Organization Address [facility] Phone Number [facility] [address] [place] [address] * (ABNORMAL) ELECTROLYTES (05/27/2008 3:00 EST) Pathologist [facility] Sodium 132(L) 136 - 145 mEq/L [facility] Potassium 4.1 3.5 - 5.0 mEq/L [facility] Chloride 98 96 - 110 mEq/L [facility] CO2 26 24 - 32 mEq/L [facility] 05/27/2008 3:00 EST 05/27/2008 3:06 EST us Jose Alejandro Castro MD CHEMISTRY & BLOOD GAS ORDERABLE S Final Result Performing Organization Address [facility] Co de Phone Number [facility] [address] [place] [address] * (ABNORMAL) ELECTROLYTES (05/26/2008 23:04 EST) Sodium 135(L) 136 - 145 mEq/L [facility] Potassium 4.3 3.5 - 5.0 mEq/L [facility] Chloride 99 96 - 110 mEq/L [facility] CO2 25 24 - 32 mEq/L [facility] 05/26/2008 23:0 4 EST 05/26/2008 23:04 EST Jose Alejandro Castro MD CHEMISTRY & BLOOD GAS ORDERABLE S Final Result Performing Organization Address [facility] de Phone Number [facility] [address] [place] [address] * ELECTROLYTES (05/26/2008 19:14 EST) Sodium 136 136 - 145 mEq/L [facility] Potassium 4.2 3.5 - 5.0 mEq/L [facility] Chloride 99 96 - 110 mEq/L [facility] CO2 25 24 - 32 mEq/L [facility] 05/26/2008 19:1 4 EST 05/26/2008 19:14 EST Jose Alejandro Castro MD CHEMISTRY & BLOOD GAS ORDERABLE S Final Result Performing Organization Address [facility] de Phone Number [facility] [address] [place] [address] * (ABNORMAL) ELECTROLYTES (05/26/2008 15:47 EST) Sodium 134(L) 136 - 145 mEq/L [facility] Potassium 4.5 3.5 - 5.0 mEq/L [facility] Chloride 99 96 - 110 mEq/L [facility] CO2 25 24 - 32 mEq/L [facility] 05/26/2008 15:4 7 EST 05/26/2008 15:47 EST Jose Alejandro Castro MD CHEMISTRY & BLOOD GAS ORDERABLE S Final Result Performing Organization Address [facility] de Phone Number [facility] [address] [place] [address] * GLUCOSE, GLUCOMETER (05/26/2008 15:44 EST) Glucose, Fingerstick 98 70 - 100 mg/dl [facility] Cor[employer] Counselor [place] [id number] Test Performed by Nursing Services [facility] 05/26/2008 15:4 4 EST 05/26/2008 23:27 EST Jose Alejandro Castro MD CHEMISTRY & BLOOD GAS ORDERABLE S Final Result Performing Organization Address [facility] de Phone Number [facility] [address] [place] [address] * ELECTROLYTES (05/26/2008 11:50 EST) Sodium 136 136 - 145 mEq/L [facility] Potassium 4.4 3.5 - 5.0 mEq/L [facility] Chloride 100 96 - 110 mEq/L [facility] CO2 24 24 - 32 mEq/L [facility] 05/26/2008 11:5 0 EST 05/26/2008 11:50 EST Jose Alejandro Castro MD CHEMISTRY & BLOOD GAS ORDERABLE S Final Result Performing Organization Address [facility] de Phone Number [facility] [address] [place] [address] * (ABNORMAL) GLUCOSE, GLUCOMETER (05/26/2008 11:39 EST) Glucose, Fingerstick 107(H) 70 - 100 mg/dl [facility] Cor[employer] Counselor [place] [id number] Test Performed by Nursing Services [facility] 05/26/2008 11:3 9 EST 05/26/2008 23:27 EST Jose Alejandro Castro MD CHEMISTRY & BLOOD GAS ORDERABLE S Final Result Performing Organization Address [facility] de Phone Number [facility] [address] [place] [address] * ELECTROLYTES (05/26/2008 7:09 EST) Sodium 138 136 - 145 mEq/L [facility] Potassium 4.5 3.5 - 5.0 mEq/L [facility] Chloride 102 96 - 110 mEq/L [facility] CO2 25 24 - 32 mEq/L [facility] 05/26/2008 7:09 EST 05/26/2008 7:09 EST Jose Alejandro Castro MD CHEMISTRY & BLOOD GAS ORDERABLE S Final Result Performing Organization Address [facility] Co de Phone Number [facility] [address] [place] [address] * GLUCOSE, SERUM (05/26/2008 2:58 EST) Glucose, Serum 79 70 - 100 mg/dl [facility] Comment:Slightly lipemic 05/26/2008 2:58 EST 05/26/2008 2:58 EST Jose Alejandro Castro MD CHEMISTRY & BLOOD GAS ORDERABLE S Final Result Performing Organization Address [facility] de Phone Number [facility] [address] [place] [address] * CREATININE (05/26/2008 2:58 EST) Creatinine 0.70 0.6 - 1.2 mg/dl [facility] Comment:Slightly lipemic GFR, Calculated Age <18 Slightly lipemic ml/min/1. 73m2 [facility] 05/26/2008 2:58 EST 05/26/2008 2:58 EST Jose Alejandro Castro MD CHEMISTRY & BLOOD GAS ORDERABLE S Final Result Performing Organization Address [facility] de Phone Number [facility] [address] [place] [address] * BUN (05/26/2008 2:58 EST) BUN 17 8 - 21 mg/dl [facility] Comment:Slightly lipemic 05/26/2008 2:58 EST 05/26/2008 2:58 EST Jose Alejandro Castro MD CHEMISTRY & BLOOD GAS ORDERABLE S Final Result Performing Organization Address [facility] Phone Number [facility] [address] [place] [address] * ELECTROLYTES (05/26/2008 2:58 EST) Sodium 137 136 - 145 mEq/L [facility] Comment:Slightly lipemic Potassium 4.7 3.5 - 5.0 mEq/L [facility] Comment:Slightly lipemic Chloride 101 96 - 110 mEq/L [facility] Comment:Slightly lipemic CO2 25 24 - 32 mEq/L [facility] Comment:Slightly lipemic 05/26/2008 2:58 EST 05/26/2008 2:58 EST Jose Alejandro Castro MD CHEMISTRY & BLOOD GAS ORDERABLE S Final Result Performing Organization Address [facility] Phone Number [facility] [address] [place] [address] * ELECTROLYTES (05/26/2008 0:00 EST) Sodium 139 136 - 145 mEq/L [facility] Comment:Slightly lipemic Potassium 4.3 3.5 - 5.0 mEq/L [facility] Comment:Slightly lipemic Chloride 100 96 - 110 mEq/L [facility] Comment:Slightly lipemic CO2 24 24 - 32 mEq/L [facility] Comment:Slightly lipemic 05/26/2008 05/26/2008 0:1 0 EST Jose Alejandro Castro MD CHEMISTRY & BLOOD GAS ORDERABLE S Final Result Performing Organization Address [facility] Phone Number [facility] [address] [place] [address] * (ABNORMAL) ELECTROLYTES (05/25/2008 19:59 EST) Sodium 135(L) 136 - 145 mEq/L [facility] Potassium 4.6 3.5 - 5.0 mEq/L [facility] Chloride 97 96 - 110 mEq/L [facility] CO2 26 24 - 32 mEq/L [facility] 05/25/2008 19:5 9 EST 05/25/2008 19:59 EST Jose Alejandro Castro MD CHEMISTRY & BLOOD GAS ORDERABLE S Final Result Performing Organization Address [facility] Co de Phone Number [facility] [address] [place] [address] * ELECTROLYTES (05/25/2008 16:20 EST) Sodium 137 136 - 145 mEq/L [facility] Potassium 4.4 3.5 - 5.0 mEq/L [facility] Chloride 98 96 - 110 mEq/L [facility] CO2 26 24 - 32 mEq/L [facility] 05/25/2008 16:2 0 EST 05/25/2008 16:20 EST Jose Alejandro Castro MD CHEMISTRY & BLOOD GAS ORDERABLE S Final Result Performing Organization Address [facility] de Phone Number [facility] [address] [place] [address] * ELECTROLYTES (05/25/2008 13:05 EST) Sodium 138 136 - 145 mEq/L [facility] Potassium 4.5 3.5 - 5.0 mEq/L [facility] Chloride 98 96 - 110 mEq/L [facility] CO2 26 24 - 32 mEq/L [facility] 05/25/2008 13:0 5 EST 05/25/2008 13:05 EST Jose Alejandro Castro MD CHEMISTRY & BLOOD GAS ORDERABLE S Final Result Performing Organization Address [facility] de Phone Number [facility] [address] [place] [address] * GLUCOSE, GLUCOMETER (05/25/2008 13:00 EST) Glucose, Fingerstick 88 70 - 100 mg/dl [facility] Cor[employer] Counselor [place] [id number] Test Performed by Nursing Services [facility] 05/25/2008 13:0 0 EST 05/25/2008 23:23 EST Jose Alejandro Castro MD CHEMISTRY & BLOOD GAS ORDERABLE S Final Result Performing Organization Address [facility] de Phone Number [facility] [address] [place] [address] * MRSA MOLECULAR DETECTION (05/25/2008 12:40 EST) Specimen Description Nares [facility] Result NEGATIVE for Methicillin Resistant Staphylococcus aureus DNA by PCR. [facility] Report Status Final 05/26/2008 [facility] 05/25/2008 12:4 0 EST 05/25/2008 14:30 EST Jose Alejandro Castro MD MICROBIOLOGY - GENERAL ORDERABL ES Final Result Performing Organization Address [facility] de Phone Number [facility] [address] [place] [address] * ELECTROLYTES (05/25/2008 10:00 EST) Sodium 139 136 - 145 mEq/L [facility] Potassium 4.5 3.5 - 5.0 mEq/L [facility] Chloride 101 96 - 110 mEq/L [facility] CO2 26 24 - 32 mEq/L [facility] 05/25/2008 10:0 0 EST 05/25/2008 10:00 EST Jose Alejandro Castro MD CHEMISTRY & BLOOD GAS ORDERABLE S Final Result Performing Organization Address [facility] de Phone Number [facility] [address] [place] [address] * (ABNORMAL) ELECTROLYTES (05/25/2008 5:52 EST) Sodium 134(L) 136 - 145 mEq/L [facility] Potassium 4.1 3.5 - 5.0 mEq/L [facility] Chloride 99 96 - 110 mEq/L [facility] CO2 24 24 - 32 mEq/L [facility] 05/25/2008 5:52 EST 05/25/2008 5:52 EST us Jose Alejandro Castro MD CHEMISTRY & BLOOD GAS ORDERABLE S Final Result Performing Organization Address [facility] Phone Number [facility] [address] [place] [address] * GLUCOSE, SERUM (05/25/2008 2:54 EST) Glucose, Serum 75 70 - 100 mg/dl [facility] 05/25/2008 2:54 EST 05/25/2008 2:56 EST us Jose Alejandro Castro MD CHEMISTRY & BLOOD GAS ORDERABLE S Final Result Performing Organization Address [facility] Phone Number [facility] [address] [place] [address] * BUN (05/25/2008 2:54 EST) BUN 16 8 - 21 mg/dl [facility] 05/25/2008 2:54 EST 05/25/2008 2:56 EST us Jose Alejandro Castro MD CHEMISTRY & BLOOD GAS ORDERABLE S Final Result Performing Organization Address [facility] Phone Number [facility] [address] [place] [address] * (ABNORMAL) ELECTROLYTES (05/25/2008 2:54 EST) Sodium 132(L) 136 - 145 mEq/L [facility] Potassium 4.4 3.5 - 5.0 mEq/L [facility] Chloride 98 96 - 110 mEq/L [facility] CO2 25 24 - 32 mEq/L [facility] 05/25/2008 2:54 EST 05/25/2008 2:56 EST us Jose Alejandro Castro MD CHEMISTRY & BLOOD GAS ORDERABLE S Final Result Performing Organization Address [facility]/State/ZIP Co de Phone Number [facility] [address] [place] [address] * (ABNORMAL) ELECTROLYTES (05/24/2008 23:58 EST) Sodium 133(L) 136 - 145 mEq/L [facility] Potassium 4.6 3.5 - 5.0 mEq/L [facility] Chloride 98 96 - 110 mEq/L [facility] CO2 24 24 - 32 mEq/L [facility] 05/24/2008 23:5 8 EST 05/24/2008 23:58 EST Jose Alejandro Castro MD CHEMISTRY & BLOOD GAS ORDERABLE S Final Result Performing Organization Address City/[facility] Co de Phone Number [facility] [address] [place] [address] * (ABNORMAL) ELECTROLYTES (05/24/2008 19:45 EST) Sodium 135(L) 136 - 145 mEq/L [facility] Potassium 4.5 3.5 - 5.0 mEq/L [facility] Chloride 99 96 - 110 mEq/L [facility] CO2 25 24 - 32 mEq/L [facility] 05/24/2008 19:4 5 EST 05/24/2008 20:53 EST us Jose Alejandro Castro MD CHEMISTRY & BLOOD GAS ORDERABLE S Final Result Performing Organization Address City/[facility]/ZIP Co de Phone Number [facility] [address] [place] [address] * ELECTROLYTES (05/24/2008 17:36 EST) Sodium 136 136 - 145 mEq/L [facility] Potassium 4.4 3.5 - 5.0 mEq/L [facility] Chloride 99 96 - 110 mEq/L [facility] CO2 24 24 - 32 mEq/L [facility] 05/24/2008 17:3 6 EST 05/24/2008 17:37 EST us Jose Alejandro Castro MD CHEMISTRY & BLOOD GAS ORDERABLE S Final Result Performing Organization Address [facility] Phone Number [facility] [address] [place] [address] * ELECTROLYTES (05/24/2008 15:20 EST) Sodium 137 136 - 145 mEq/L [facility] Potassium 4.1 3.5 - 5.0 mEq/L [facility] Chloride 100 96 - 110 mEq/L [facility] CO2 25 24 - 32 mEq/L [facility] 05/24/2008 15:2 0 EST 05/24/2008 15:25 EST Jose Alejandro Castro MD CHEMISTRY & BLOOD GAS ORDERABLE S Final Result Performing Organization Address [facility] Phone Number [facility] [address] [place] [address] * (ABNORMAL) ELECTROLYTES (05/24/2008 12:00 EST) Sodium 134(L) 136 - 145 mEq/L [facility] Potassium 3.9 3.5 - 5.0 mEq/L [facility] Chloride 97 96 - 110 mEq/L [facility] CO2 24 24 - 32 mEq/L [facility] 05/24/2008 12:0 0 EST 05/24/2008 12:27 EST Result [facility] Jose Alejandro Castro MD CHEMISTRY & BLOOD GAS ORDERABLE S Final Result Performing Organization Address [facility] Phone Number [facility] [address] [place] [address] * CREATININE (05/24/2008 9:47 EST) Creatinine 0.60 0.6 - 1.2 mg/dl [facility] GFR, Calculated Age <18 ml/min/1.7 3m2 [facility] 05/24/2008 9:47 EST 05/24/2008 9:47 EST Jose Alejandro Castro MD CHEMISTRY & BLOOD GAS ORDERABLE S Final Result Performing Organization Address [facility] de Phone Number [facility] [address] [place] [address] * (ABNORMAL) ELECTROLYTES (05/24/2008 9:47 EST) Sodium 134(L) 136 - 145 mEq/L [facility] Potassium 4.5 3.5 - 5.0 mEq/L [facility] Chloride 96 96 - 110 mEq/L [facility] CO2 27 24 - 32 mEq/L [facility] 05/24/2008 9:47 EST 05/24/2008 9:47 EST Jose Alejandro Castro MD CHEMISTRY & BLOOD GAS ORDERABLE S Final Result Performing Organization Address [facility] de Phone Number [facility] [address] [place] [address] * (ABNORMAL) GLUCOSE, GLUCOMETER (05/24/2008 7:24 EST) Glucose, Fingerstick 67(L) 70 - 100 mg/dl [facility] Cor[employer] Counselor ID [id number] Test Performed by Nursing Services [facility] 05/24/2008 7:24 EST 05/24/2008 23:10 EST us Jose Alejandro Castro MD CHEMISTRY & BLOOD GAS ORDERABLE S Final Result Performing Organization Address [facility] de Phone Number [facility] [address] [place] [address] * CREATININE (05/24/2008 6:05 EST) Creatinine 0.60 0.6 - 1.2 mg/dl [facility] GFR, Calculated Age <18 ml/min/1.7 3m2 [facility] 05/24/2008 6:05 EST 05/24/2008 6:11 EST us Jose Alejandro Castro MD CHEMISTRY & BLOOD GAS ORDERABLE S Final Result Performing Organization Address [facility] Co de Phone Number [facility] [address] [place] [address] * TESTS ADDED BY PHONE (05/24/2008 6:05 EST) [facility] Tests to be added STAT CREAT [facility] Who Called JOSELUIS Packer FOR DR [facility] Location Code [id number] [facility] 05/24/2008 6:05 EST 05/24/2008 6:11 EST Jose Alejandro Castro MD CHEMISTRY & BLOOD GAS ORDERABLE S Final Result Performing Organization Address City/[facility]/ZIP Co de Phone Number [facility] [address] [place] [address] * (ABNORMAL) GLUCOSE, SERUM (05/24/2008 6:05 EST) [facility] Glucose, Serum 66(L) 70 - 100 mg/dl [facility] 05/24/2008 6:05 EST 05/24/2008 6:11 EST Jose Alejandro Castro MD CHEMISTRY & BLOOD GAS ORDERABLE S Final Result Performing Organization Address [facility]/ZIP Co de Phone Number [facility] [address] [place] [address] * BUN (05/24/2008 6:05 EST) Pathologist [facility] BUN 16 8 - 21 mg/dl [facility] 05/24/2008 6:05 EST 05/24/2008 6:11 EST Jose Alejandro Castro MD CHEMISTRY & BLOOD GAS ORDERABLE S Final Result Performing Organization Address City/[facility]/ZIP Co de Phone Number [facility] [address] [place] [address] * (ABNORMAL) ELECTROLYTES (05/24/2008 6:05 EST) Sodium 130(L) 136 - 145 mEq/L [facility] Potassium 4.4 3.5 - 5.0 mEq/L [facility] Chloride 96 96 - 110 mEq/L [facility] CO2 26 24 - 32 mEq/L [facility] 05/24/2008 6:05 EST 05/24/2008 6:11 EST Jose Alejandro Castro MD CHEMISTRY & BLOOD GAS ORDERABLE S Final Result Performing Organization Address [facility] de Phone Number [facility] [address] [place] [address] * (ABNORMAL) ELECTROLYTES (05/24/2008 3:20 EST) Sodium 133(L) 136 - 145 mEq/L [facility] Comment:Slightly lipemic Potassium 4.6 3.5 - 5.0 mEq/L [facility] Comment:Slightly lipemic Chloride 97 96 - 110 mEq/L [facility] Comment:Slightly lipemic CO2 24 24 - 32 mEq/L [facility] Comment:Slightly lipemic 05/24/2008 3:20 EST 05/24/2008 3:24 EST Jose Alejandro Castro MD CHEMISTRY & BLOOD GAS ORDERABLE S Final Result Performing Organization Address [facility] de Phone Number [facility] [address] [place] [address] * (ABNORMAL) GLUCOSE, GLUCOMETER (05/24/2008 0:07 EST) Glucose, Fingerstick 119(H) 70 - 100 mg/dl [facility] Cor[employer] Counselor ID [id number] Test Performed by Nursing Services [facility] 05/24/2008 0:07 EST 05/24/2008 23:10 EST Jose Alejandro Castro MD CHEMISTRY & BLOOD GAS ORDERABLE S Final Result Performing Organization Address [facility] de Phone Number [facility] [address] [place] [address] * (ABNORMAL) ELECTROLYTES (05/24/2008 0:05 EST) Sodium 134(L) 136 - 145 mEq/L [facility] Comment:Slightly lipemic Potassium 4.6 3.5 - 5.0 mEq/L [facility] Comment:Slightly lipemic Chloride 99 96 - 110 mEq/L [facility] Comment:Slightly lipemic CO2 24 24 - 32 mEq/L [facility] Comment:Slightly lipemic 05/24/2008 0:05 EST 05/24/2008 0:17 EST Jose Alejandro Castro MD CHEMISTRY & BLOOD GAS ORDERABLE S Final Result Performing Organization Address [facility] de Phone Number [facility] [address] [place] [address] * ELECTROLYTES (05/23/2008 21:00 EST) Sodium 138 136 - 145 mEq/L [facility] Potassium 3.8 3.5 - 5.0 mEq/L [facility] Chloride 99 96 - 110 mEq/L [facility] CO2 25 24 - 32 mEq/L [facility] 05/23/2008 21:0 0 EST 05/23/2008 21:07 EST Jose Alejandro Castro MD CHEMISTRY & BLOOD GAS ORDERABLE S Final Result Performing Organization Address [facility] de Phone Number [facility] [address] [place] [address] * ELECTROLYTES (05/23/2008 18:24 EST) Sodium 137 136 - 145 mEq/L [facility] Potassium 4.9 3.5 - 5.0 mEq/L [facility] Chloride 99 96 - 110 mEq/L [facility] CO2 27 24 - 32 mEq/L [facility] 05/23/2008 18:2 4 EST 05/23/2008 18:24 EST Jose Alejandro Castro MD CHEMISTRY & BLOOD GAS ORDERABLE S Final Result Performing Organization Address [facility] de Phone Number [facility] [address] [place] [address] * ELECTROLYTES (05/23/2008 15:41 EST) Sodium 137 136 - 145 mEq/L [facility] Potassium 4.1 3.5 - 5.0 mEq/L [facility] Chloride 97 96 - 110 mEq/L [facility] CO2 26 24 - 32 mEq/L [facility] 05/23/2008 15:4 1 EST 05/23/2008 15:41 EST Jose Alejandro Castro MD CHEMISTRY & BLOOD GAS ORDERABLE S Final Result Performing Organization Address [facility] Co de Phone Number [facility] [address] [place] [address] * ELECTROLYTES (05/23/2008 11:58 EST) Sodium 137 136 - 145 mEq/L [facility] Potassium 3.6 3.5 - 5.0 mEq/L [facility] Chloride 99 96 - 110 mEq/L [facility] CO2 25 24 - 32 mEq/L [facility] 05/23/2008 11:5 8 EST 05/23/2008 11:58 EST Jose Alejandro Castro MD CHEMISTRY & BLOOD GAS ORDERABLE S Final Result Performing Organization Address [facility] de Phone Number [facility] [address] [place] [address] * ELECTROLYTES (05/23/2008 9:15 EST) Sodium 139 136 - 145 mEq/L [facility] Potassium 4.0 3.5 - 5.0 mEq/L [facility] Chloride 100 96 - 110 mEq/L [facility] CO2 26 24 - 32 mEq/L [facility] 05/23/2008 9:15 EST 05/23/2008 9:15 EST Jose Alejandro Castro MD CHEMISTRY & BLOOD GAS ORDERABLE S Final Result Performing Organization Address [facility] Co de Phone Number [facility] [address] [place] [address] * GLUCOSE, GLUCOMETER (05/23/2008 9:11 EST) Glucose, Fingerstick 90 70 - 100 mg/dl [facility] [employer] Counselor [place] [id number] Test Performed by Nursing Services [facility] 05/23/2008 9:11 EST 05/23/2008 23:07 EST Jose Alejandro Castro MD CHEMISTRY & BLOOD GAS ORDERABLE S Final Result Performing Organization Address [facility]/ZIP Co de Phone Number [facility] [address] [place] [address] * CREATININE (05/23/2008 6:00 EST) Pathologist [facility] Creatinine 0.60 0.6 - 1.2 mg/dl [facility] GFR, Calculated Age <18 ml/min/1.7 3m2 [facility] 05/23/2008 6:00 EST 05/23/2008 6:11 EST Jose Alejandro Castro MD CHEMISTRY & BLOOD GAS ORDERABLE S Final Result Performing Organization Address [facility] Co de Phone Number [facility] [address] [place] [address] * BUN (05/23/2008 6:00 EST) Pathologist [facility] BUN 13 8 - 21 mg/dl [facility] 05/23/2008 6:00 EST 05/23/2008 6:11 EST Jose Alejandro Castro MD CHEMISTRY & BLOOD GAS ORDERABLE S Final Result Performing Organization Address [facility] Co de Phone Number [facility] [address] [place] [address] * (ABNORMAL) ELECTROLYTES (05/23/2008 6:00 EST) Pathologist [facility] Sodium 134(L) 136 - 145 mEq/L [facility] Potassium 4.4 3.5 - 5.0 mEq/L [facility] Chloride 99 96 - 110 mEq/L [facility] CO2 25 24 - 32 mEq/L [facility] 05/23/2008 6:00 EST 05/23/2008 6:11 EST us Jose Alejandro Castro MD CHEMISTRY & BLOOD GAS ORDERABLE S Final Result Performing Organization Address [facility] Co de Phone Number [facility] [address] [place] [address] * (ABNORMAL) GLUCOSE, GLUCOMETER (05/23/2008 3:59 EST) Glucose, Fingerstick 105(H) 70 - 100 mg/dl [facility] [employer]or [place] [id number] Test Performed by Nursing Services [facility] 05/23/2008 3:59 EST 05/23/2008 23:07 EST us Jose Alejandro Castro MD CHEMISTRY & BLOOD GAS ORDERABLE S Final Result Performing Organization Address [facility] Co de Phone Number [facility] [address] [place] [address] * GLUCOSE, SERUM (05/23/2008 3:00 EST) Glucose, Serum 76 70 - 100 mg/dl [facility] 05/23/2008 3:00 EST 05/23/2008 3:05 EST us Jose Alejandro Castro MD CHEMISTRY & BLOOD GAS ORDERABLE S Final Result Performing Organization Address [facility] de Phone Number [facility] [address] [place] [address] * (ABNORMAL) ELECTROLYTES (05/23/2008 3:00 EST) Sodium 132(L) 136 - 145 mEq/L [facility] Potassium 4.2 3.5 - 5.0 mEq/L [facility] Chloride 99 96 - 110 mEq/L [facility] CO2 24 24 - 32 mEq/L [facility] 05/23/2008 3:00 EST 05/23/2008 3:05 EST us Jose Alejandro Castro MD CHEMISTRY & BLOOD GAS ORDERABLE S Final Result Performing Organization Address [facility] de Phone Number [facility] [address] [place] [address] * (ABNORMAL) GLUCOSE, GLUCOMETER (05/23/2008 0:16 EST) Glucose, Fingerstick 104(H) 70 - 100 mg/dl [facility] Cor[employer] Counselor ID [id number] Test Performed by Nursing Services [facility] 05/23/2008 0:16 EST 05/23/2008 23:07 EST Jose Alejandro Castro MD CHEMISTRY & BLOOD GAS ORDERABLE S Final Result Performing Organization Address [facility] de Phone Number [facility] [address] [place] [address] * (ABNORMAL) ELECTROLYTES (05/23/2008 0:15 EST) Sodium 133(L) 136 - 145 mEq/L [facility] Potassium 4.1 3.5 - 5.0 mEq/L [facility] Chloride 95(L) 96 - 110 mEq/L [facility] CO2 26 24 - 32 mEq/L [facility] 05/23/2008 0:15 EST 05/23/2008 0:23 EST Jose Alejandro Castro MD CHEMISTRY & BLOOD GAS ORDERABLE S Final Result Performing Organization Address [facility] de Phone Number [facility] [address] [place] [address] * GLUCOSE, SERUM (05/22/2008 21:25 EST) Glucose, Serum 90 70 - 100 mg/dl [facility] 05/22/2008 21:2 5 EST 05/22/2008 21:32 EST Jose Alejandro Castro MD CHEMISTRY & BLOOD GAS ORDERABLE S Final Result Performing Organization Address [facility] Co de Phone Number [facility] [address] [place] [address] * (ABNORMAL) ELECTROLYTES (05/22/2008 21:25 EST) Sodium 132(L) 136 - 145 mEq/L [facility] Potassium 4.1 3.5 - 5.0 mEq/L [facility] Chloride 96 96 - 110 mEq/L [facility] CO2 25 24 - 32 mEq/L [facility] 05/22/2008 21:2 5 EST 05/22/2008 21:32 EST Jose Alejandro Castro MD CHEMISTRY & BLOOD GAS ORDERABLE S Final Result Performing Organization Address [facility] de Phone Number [facility] [address] [place] [address] * (ABNORMAL) ELECTROLYTES (05/22/2008 18:10 EST) Sodium 134(L) 136 - 145 mEq/L [facility] Potassium 4.5 3.5 - 5.0 mEq/L [facility] Chloride 96 96 - 110 mEq/L [facility] CO2 26 24 - 32 mEq/L [facility] 05/22/2008 18:1 0 EST 05/22/2008 18:12 EST Jose Alejandro Castro MD CHEMISTRY & BLOOD GAS ORDERABLE S Final Result Performing Organization Address [facility] de Phone Number [facility] [address] [place] [address] * (ABNORMAL) GLUCOSE, GLUCOMETER (05/22/2008 18:08 EST) Glucose, Fingerstick 101(H) 70 - 100 mg/dl [facility] Cor[employer] Counselor [place] [id number] Test Performed by Nursing Services [facility] 05/22/2008 18:0 8 EST 05/22/2008 23:44 EST Jose Alejandro Castro MD CHEMISTRY & BLOOD GAS ORDERABLE S Final Result Performing Organization Address [facility] Co de Phone Number [facility] [address] [place] [address] * (ABNORMAL) ELECTROLYTES (05/22/2008 14:22 EST) Sodium 133(L) 136 - 145 mEq/L [facility] Potassium 4.3 3.5 - 5.0 mEq/L [facility] Chloride 97 96 - 110 mEq/L [facility] CO2 28 24 - 32 mEq/L [facility] 05/22/2008 14:2 2 EST 05/22/2008 14:22 EST Jose Alejandro Castro MD CHEMISTRY & BLOOD GAS ORDERABLE S Final Result Performing Organization Address [facility] de Phone Number [facility] [address] [place] [address] * (ABNORMAL) ELECTROLYTES (05/22/2008 10:11 EST) Sodium 135(L) 136 - 145 mEq/L [facility] Comment:Heparinized plasma. Potassium 3.9 3.5 - 5.0 mEq/L [facility] Comment:Heparinized plasma. Chloride 99 96 - 110 mEq/L [facility] Comment:Heparinized plasma. CO2 28 24 - 32 mEq/L [facility] Comment:Heparinized plasma. 05/22/2008 10:1 1 EST 05/22/2008 10:11 EST Result [facility] Jose Alejandro Castro MD CHEMISTRY & BLOOD GAS ORDERABLE S Final Result Performing Organization Address City/[facility] Co de Phone Number [facility] [address] [place] [address] * ELECTROLYTES (05/22/2008 6:25 EST) Sodium 136 136 - 145 mEq/L [facility] Potassium 4.1 3.5 - 5.0 mEq/L [facility] Chloride 102 96 - 110 mEq/L [facility] CO2 25 24 - 32 mEq/L [facility] 05/22/2008 6:25 EST 05/22/2008 6:33 EST Jose Alejandro Castro MD CHEMISTRY & BLOOD GAS ORDERABLE S Final Result [facility] [address] [place] [address] * CREATININE (05/22/2008 3:15 EST) Creatinine 0.70 0.6 - 1.2 mg/dl [facility] GFR, Calculated Age <18 ml/min/1.7 3m2 [facility] 05/22/2008 3:15 EST 05/22/2008 3:20 EST Jose Alejandro Castro MD CHEMISTRY & BLOOD GAS ORDERABLE S Final Result Performing Organization Address [facility] Co de Phone Number [facility] [address] [place] [address] * BUN (05/22/2008 3:15 EST) BUN 15 8 - 21 mg/dl [facility] 05/22/2008 3:15 EST 05/22/2008 3:20 EST Jose Alejandro Castro MD CHEMISTRY & BLOOD GAS ORDERABLE S Final Result Performing Organization Address [facility] Co de Phone Number [facility] [address] [place] [address] * ELECTROLYTES (05/22/2008 3:15 EST) Sodium 137 136 - 145 mEq/L [facility] Potassium 4.2 3.5 - 5.0 mEq/L [facility] Chloride 103 96 - 110 mEq/L [facility] CO2 24 24 - 32 mEq/L [facility] 05/22/2008 3:15 EST 05/22/2008 3:20 EST Jose Alejandro Castro MD CHEMISTRY & BLOOD GAS ORDERABLE S Final Result Performing Organization Address City/[facility]/ZIP Co de Phone Number [facility] [address] [place] [address] * GLUCOSE, GLUCOMETER (05/22/2008 3:14 EST) Glucose, Fingerstick 97 70 - 100 mg/dl [facility] Cor[employer] Counselor ID [id number] Test Performed by Nursing Services [facility] 05/22/2008 3:14 EST 05/22/2008 23:43 EST Jose Alejandro Castro MD CHEMISTRY & BLOOD GAS ORDERABLE S Final Result Performing Organization Address [facility] de Phone Number [facility] [address] [place] [address] * GLUCOSE, GLUCOMETER (05/21/2008 23:09 EST) Glucose, Fingerstick 82 70 - 100 mg/dl [facility] Cor[employer] Counselor ID [id number] Test Performed by Nursing Services [facility] 05/21/2008 23:0 9 EST 05/21/2008 23:11 EST Jose Alejandro Castro MD CHEMISTRY & BLOOD GAS ORDERABLE S Final Result Performing Organization Address [facility] de Phone Number [facility] [address] [place] [address] * ELECTROLYTES (05/21/2008 23:05 EST) Sodium 140 136 - 145 mEq/L [facility] Potassium 4.5 3.5 - 5.0 mEq/L [facility] Chloride 105 96 - 110 mEq/L [facility] CO2 24 24 - 32 mEq/L [facility] 05/21/2008 23:0 5 EST 05/21/2008 23:18 EST Jose Alejandro Castro MD CHEMISTRY & BLOOD GAS ORDERABLE S Final Result Performing Organization Address [facility] de Phone Number [facility] [address] [place] [address] * ELECTROLYTES (05/21/2008 19:02 EST) Sodium 141 136 - 145 mEq/L [facility] Potassium 4.1 3.5 - 5.0 mEq/L [facility] Chloride 103 96 - 110 mEq/L [facility] CO2 26 24 - 32 mEq/L [facility] 05/21/2008 19:0 2 EST 05/21/2008 19:04 EST Jose Alejandro Castro MD CHEMISTRY & BLOOD GAS ORDERABLE S Final Result Performing Organization Address [facility] de Phone Number [facility] [address] [place] [address] * ELECTROLYTES (05/21/2008 15:20 EST) Sodium 141 136 - 145 mEq/L [facility] Potassium 4.3 3.5 - 5.0 mEq/L [facility] Chloride 104 96 - 110 mEq/L [facility] CO2 28 24 - 32 mEq/L [facility] 05/21/2008 15:2 0 EST 05/21/2008 15:21 EST Jose Alejandro Castro MD CHEMISTRY & BLOOD GAS ORDERABLE S Final Result Performing Organization Address [facility] de Phone Number [facility] [address] [place] [address] * (ABNORMAL) GLUCOSE, GLUCOMETER (05/21/2008 10:49 EST) Glucose, Fingerstick 137(H) 70 - 100 mg/dl [facility] Cor[employer] Counselor ID [id number] Test Performed by Nursing Services [facility] 05/21/2008 10:4 9 EST 05/21/2008 23:05 EST Jose Alejandro Castro MD CHEMISTRY & BLOOD GAS ORDERABLE S Final Result Performing Organization Address [facility] de Phone Number [facility] [address] [place] [address] * ELECTROLYTES (05/21/2008 10:44 EST) Sodium 143 136 - 145 mEq/L [facility] Potassium 3.5 3.5 - 5.0 mEq/L [facility] Chloride 107 96 - 110 mEq/L [facility] CO2 25 24 - 32 mEq/L [facility] 05/21/2008 10:4 4 EST 05/21/2008 10:50 EST us Jose Alejandro Castro MD CHEMISTRY & BLOOD GAS ORDERABLE S Final Result Performing Organization Address [facility] de Phone Number [facility] [address] [place] [address] * (ABNORMAL) GLUCOSE, SERUM (05/21/2008 6:17 EST) Glucose, Serum 66(L) 70 - 100 mg/dl [facility] 05/21/2008 6:17 EST 05/21/2008 6:17 EST us Jose Alejandro Castro MD CHEMISTRY & BLOOD GAS ORDERABLE S Final Result Performing Organization Address [facility] Phone Number [facility] [address] [place] [address] * CREATININE (05/21/2008 6:17 EST) Creatinine 0.66 0.6 - 1.2 mg/dl [facility] GFR, Calculated Age <18 ml/min/1.7 3m2 [facility] 05/21/2008 6:17 EST 05/21/2008 6:17 EST us Jose Alejandro Castro MD CHEMISTRY & BLOOD GAS ORDERABLE S Final Result Performing Organization Address [facility] de Phone Number [facility] [address] [place] [address] * BUN (05/21/2008 6:17 EST) BUN 12 8 - 21 mg/dl [facility] 05/21/2008 6:17 EST 05/21/2008 6:17 EST us Jose Alejandro Castro MD CHEMISTRY & BLOOD GAS ORDERABLE S Final Result Performing Organization Address City/[facility]/ZIP Co de Phone Number [facility] [address] [place] [address] * ELECTROLYTES (05/21/2008 6:17 EST) Sodium 142 136 - 145 mEq/L [facility] Potassium 4.3 3.5 - 5.0 mEq/L [facility] Chloride 109 96 - 110 mEq/L [facility] CO2 26 24 - 32 mEq/L [facility] 05/21/2008 6:17 EST 05/21/2008 6:17 EST us Jose Alejandro Castro MD CHEMISTRY & BLOOD GAS ORDERABLE S Final Result Performing Organization Address [facility] de Phone Number [facility] [address] [place] [address] * (ABNORMAL) ELECTROLYTES (05/21/2008 2:10 EST) Sodium 144 136 - 145 mEq/L [facility] Potassium 4.9 3.5 - 5.0 mEq/L [facility] Chloride 112(H) 96 - 110 mEq/L [facility] CO2 22(L) 24 - 32 mEq/L [facility] 05/21/2008 2:10 EST 05/21/2008 2:10 EST us Jose Alejandro Castro MD CHEMISTRY & BLOOD GAS ORDERABLE S Final Result Performing Organization Address [facility] de Phone Number [facility] [address] [place] [address] * GLUCOSE, SERUM (05/20/2008 22:13 EST) Glucose, Serum 89 70 - 100 mg/dl [facility] 05/20/2008 22:1 3 EST 05/20/2008 22:13 EST us Jose Alejandro Castro MD CHEMISTRY & BLOOD GAS ORDERABLE S Final Result Performing Organization Address [facility] Co de Phone Number [facility] [address] [place] [address] * (ABNORMAL) ELECTROLYTES (05/20/2008 22:13 EST) Sodium 148(H) 136 - 145 mEq/L [facility] Potassium 4.7 3.5 - 5.0 mEq/L [facility] Chloride 112(H) 96 - 110 mEq/L [facility] CO2 25 24 - 32 mEq/L [facility] 05/20/2008 22:1 3 EST 05/20/2008 22:13 EST Jose Alejandro Castro MD CHEMISTRY & BLOOD GAS ORDERABLE S Final Result Performing Organization Address [facility] de Phone Number [facility] [address] [place] [address] * ELECTROLYTES (05/20/2008 18:35 EST) Sodium 143 136 - 145 mEq/L [facility] Comment:Heparinized plasma. Potassium 4.0 3.5 - 5.0 mEq/L [facility] Comment:Heparinized plasma. Chloride 105 96 - 110 mEq/L [facility] Comment:Heparinized plasma. CO2 25 24 - 32 mEq/L [facility] Comment:Heparinized plasma. 05/20/2008 18:3 5 EST 05/20/2008 18:35 EST Jose Alejandro Castro MD CHEMISTRY & BLOOD GAS ORDERABLE S Final Result Performing Organization Address [facility] de Phone Number [facility] [address] [place] [address] * ELECTROLYTES (05/20/2008 15:21 EST) Sodium 140 136 - 145 mEq/L [facility] Comment:Heparinized plasma. Potassium 4.5 3.5 - 5.0 mEq/L [facility] Comment:Heparinized plasma. Chloride 102 96 - 110 mEq/L [facility] Comment:Heparinized plasma. CO2 25 24 - 32 mEq/L [facility] Comment:Heparinized plasma. 05/20/2008 15:2 1 EST 05/20/2008 15:21 EST Jose Alejandro Castro MD CHEMISTRY & BLOOD GAS ORDERABLE S Final Result Performing Organization Address [facility] Phone Number [facility] [address] [place] [address] * ELECTROLYTES (05/20/2008 11:47 EST) Sodium 140 136 - 145 mEq/L [facility] Comment:Heparinized plasma. Potassium 4.0 3.5 - 5.0 mEq/L [facility] Comment:Heparinized plasma. Chloride 100 96 - 110 mEq/L [facility] Comment:Heparinized plasma. CO2 27 24 - 32 mEq/L [facility] Comment:Heparinized plasma. 05/20/2008 11:4 7 EST 05/20/2008 12:26 EST Jose Alejandro Castro MD CHEMISTRY & BLOOD GAS ORDERABLE S Final Result Performing Organization Address [facility] Phone Number [facility] [address] [place] [address] * PREALBUMIN (05/20/2008 9:38 EST) Prealbumin 33 mg/dl [facility] 05/20/2008 9:38 EST 05/20/2008 9:38 EST Jose Alejandro Castro MD CHEMISTRY & BLOOD GAS ORDERABLE S Final Result Performing Organization Address [facility] Phone Number [facility] [address] [place] [address] * (ABNORMAL) ELECTROLYTES (05/20/2008 9:38 EST) Sodium 133(L) 136 - 145 mEq/L [facility] Potassium 4.8 3.5 - 5.0 mEq/L [facility] Chloride 96 96 - 110 mEq/L [facility] CO2 28 24 - 32 mEq/L [facility] 05/20/2008 9:38 EST 05/20/2008 9:38 EST Jose Alejandro Castro MD CHEMISTRY & BLOOD GAS ORDERABLE S Final Result Performing Organization Address [facility] Co de Phone Number [facility] [address] [place] [address] * TESTS ADDED BY PHONE (05/20/2008 9:38 EST) Tests to be added [facility] Who Called [facility] Location Code [id number] [facility] 05/20/2008 9:38 EST 05/20/2008 9:38 EST Jose Alejandro Castro MD CHEMISTRY & BLOOD GAS ORDERABLE S Final Result Performing Organization Address [facility] de Phone Number [facility] [address] [place] [address] * (ABNORMAL) ELECTROLYTES (05/20/2008 5:50 EST) Sodium 128(L) 136 - 145 mEq/L [facility] Potassium 4.5 3.5 - 5.0 mEq/L [facility] Chloride 93(L) 96 - 110 mEq/L [facility] CO2 26 24 - 32 mEq/L [facility] 05/20/2008 5:50 EST 05/20/2008 5:58 EST Jose Alejandro Castro MD CHEMISTRY & BLOOD GAS ORDERABLE S Final Result Performing Organization Address [facility] Co de Phone Number [facility] [address] [place] [address] * (ABNORMAL) ELECTROLYTES (05/20/2008 2:50 EST) Sodium 127(L) 136 - 145 mEq/L [facility] Potassium 4.6 3.5 - 5.0 mEq/L [facility] Chloride 92(L) 96 - 110 mEq/L [facility] CO2 26 24 - 32 mEq/L [facility] 05/20/2008 2:50 EST 05/20/2008 2:51 EST Jose Alejandro Castro MD CHEMISTRY & BLOOD GAS ORDERABLE S Final Result Performing Organization Address [facility]/ZIP Co de Phone Number [facility] [address] [place] [address] * CREATININE (05/20/2008 0:00 EST) Creatinine 0.70 0.6 - 1.2 mg/dl [facility] GFR, Calculated Age <18 ml/min/1.7 3m2 [facility] 05/20/2008 05/20/2008 0:1 4 EST Jose Alejandro Castro MD CHEMISTRY & BLOOD GAS ORDERABLE S Final Result Performing Organization Address [facility] de Phone Number [facility] [address] [place] [address] * BUN (05/20/2008 0:00 EST) BUN 15 8 - 21 mg/dl [facility] 05/20/2008 05/20/2008 0:1 4 EST Jose Alejandro Castro MD CHEMISTRY & BLOOD GAS ORDERABLE S Final Result Performing Organization Address [facility] de Phone Number [facility] [address] [place] [address] * (ABNORMAL) ELECTROLYTES (05/20/2008 0:00 EST) Sodium 127(L) 136 - 145 mEq/L [facility] Potassium 4.7 3.5 - 5.0 mEq/L [facility] Chloride 92(L) 96 - 110 mEq/L [facility] CO2 26 24 - 32 mEq/L [facility] 05/20/2008 05/20/2008 0:1 4 EST us Jose Alejandro Castro MD CHEMISTRY & BLOOD GAS ORDERABLE S Final Result Performing Organization Address [facility] Co de Phone Number [facility] [address] [place] [address] * (ABNORMAL) ELECTROLYTES (05/19/2008 18:10 EST) Sodium 130(L) 136 - 145 mEq/L [facility] Potassium 4.2 3.5 - 5.0 mEq/L [facility] Chloride 92(L) 96 - 110 mEq/L [facility] CO2 26 24 - 32 mEq/L [facility] 05/19/2008 18:1 0 EST 05/19/2008 18:15 EST Jose Alejandro Castro MD CHEMISTRY & BLOOD GAS ORDERABLE S Final Result Performing Organization Address [facility] de Phone Number [facility] [address] [place] [address] * (ABNORMAL) ELECTROLYTES (05/19/2008 13:40 EST) Sodium 130(L) 136 - 145 mEq/L [facility] Potassium 3.8 3.5 - 5.0 mEq/L [facility] Chloride 91(L) 96 - 110 mEq/L [facility] CO2 27 24 - 32 mEq/L [facility] 05/19/2008 13:4 0 EST 05/19/2008 13:45 EST Jose Alejandro Castro MD CHEMISTRY & BLOOD GAS ORDERABLE S Final Result Performing Organization Address [facility] de Phone Number [facility] [address] [place] [address] * SODIUM, URINE RANDOM (05/19/2008 12:00 EST) Sodium, Ur 123.0 mEq/L [facility] 05/19/2008 12:0 0 EST 05/19/2008 12:30 EST us Jose Alejandro Castro MD URINALYSIS ORDERABLES Final Res ult Performing Organization Address [facility] Co de Phone Number [facility] [address] [place] [address] * PORTABLE CHEST 1 VIEW (05/19/2008 9:46 [...] interpretation and agree with the findings. us Jose Alejandro Castro MD IMG DIAGNOSTIC IMAGING ORDERABL ES Final Result * GLUCOSE, GLUCOMETER (05/19/2008 9:38 EST) Pathologist [facility] Glucose, Fingerstick 80 70 - 100 mg/dl [facility] Cor[employer] Counselor [place] [id number] Test Performed by Nursing Services [facility] 05/19/2008 9:38 EST 05/20/2008 23:05 EST Jose Alejandro Castro MD CHEMISTRY & BLOOD GAS ORDERABLE S Final Result Performing Organization Address [facility] de Phone Number [facility] [address] [place] [address] * (ABNORMAL) ELECTROLYTES (05/19/2008 9:35 EST) Pathologist [facility] Sodium 126(L) 136 - 145 mEq/L [facility] Comment:Heparinized plasma. Potassium 3.7 3.5 - 5.0 mEq/L [facility] Comment:Heparinized plasma. Chloride 91(L) 96 - 110 mEq/L [facility] Comment:Heparinized plasma. CO2 26 24 - 32 mEq/L [facility] Comment:Heparinized plasma. 05/19/2008 9:35 EST 05/19/2008 9:40 EST Jose Alejandro Castro MD CHEMISTRY & BLOOD GAS ORDERABLE S Final Result Performing Organization Address [facility] Phone Number [facility] [address] [place] [address] * (ABNORMAL) ELECTROLYTES (05/19/2008 6:00 EST) Pathologist [facility] Sodium 126(L) 136 - 145 mEq/L [facility] Potassium 4.2 3.5 - 5.0 mEq/L [facility] Chloride 90(L) 96 - 110 mEq/L [facility] CO2 26 24 - 32 mEq/L [facility] 05/19/2008 6:00 EST 05/19/2008 6:04 EST Jose Alejandro Castro MD CHEMISTRY & BLOOD GAS ORDERABLE S Final Result Performing Organization Address [facility] de Phone Number [facility] [address] [place] [address] * GLUCOSE, SERUM (05/19/2008 2:58 EST) Pathologist [facility] Glucose, Serum 72 70 - 100 mg/dl [facility] 05/19/2008 2:58 EST 05/19/2008 2:59 EST Jose Alejandro Castro MD CHEMISTRY & BLOOD GAS ORDERABLE S Final Result Performing Organization Address [facility]/ZIP Co de Phone Number [facility] [address] [place] [address] * CREATININE (05/19/2008 2:58 EST) Pathologist [facility] Creatinine 0.60 0.6 - 1.2 mg/dl [facility] GFR, Calculated Age <18 ml/min/1.7 3m2 [facility] 05/19/2008 2:58 EST 05/19/2008 2:59 EST Jose Alejandro Castro MD CHEMISTRY & BLOOD GAS ORDERABLE S Final Result Performing Organization Address City/[facility]/ZIP Co de Phone Number [facility] [address] [place] [address] * BUN (05/19/2008 2:58 EST) Pathologist [facility] BUN 9 8 - 21 mg/dl [facility] 05/19/2008 2:58 EST 05/19/2008 2:59 EST Jose Alejandro Castro MD CHEMISTRY & BLOOD GAS ORDERABLE S Final Result Performing Organization Address City/[facility]/ZIP Co de Phone Number [facility] [address] [place] [address] * (ABNORMAL) ELECTROLYTES (05/19/2008 2:58 EST) Pathologist [facility] Sodium 127(L) 136 - 145 mEq/L [facility] Potassium 4.1 3.5 - 5.0 mEq/L [facility] Chloride 91(L) 96 - 110 mEq/L [facility] CO2 27 24 - 32 mEq/L [facility] 05/19/2008 2:58 EST 05/19/2008 2:59 EST us Jose Alejandro Castro MD CHEMISTRY & BLOOD GAS ORDERABLE S Final Result Performing Organization Address [facility] Co de Phone Number [facility] [address] [place] [address] * OSMOLALITY, URINE (05/18/2008 21:20 EST) Osmolality, Ur 639 MOS/KG [facility] 05/18/2008 21:2 0 EST 05/18/2008 21:23 EST Jose Alejandro Castro MD URINALYSIS ORDERABLES Final Res ult Performing Organization Address [facility] de Phone Number [facility] [address] [place] [address] * SODIUM, URINE RANDOM (05/18/2008 21:20 EST) Sodium, Ur 289.0 mEq/L [facility] 05/18/2008 21:2 0 EST 05/18/2008 21:23 EST Jose Alejandro Castro MD URINALYSIS ORDERABLES Final Res ult Performing Organization Address [facility] Phone Number [facility] [address] [place] [address] * POTASSIUM, URINE RANDOM (05/18/2008 21:20 EST) Potassium, Urine 34.4 mEq/L [facility] 05/18/2008 21:2 0 EST 05/18/2008 21:23 EST us Jose Alejandro Castro MD URINALYSIS ORDERABLES Final Res ult Performing Organization Address [facility] de Phone Number [facility] [address] [place] [address] * CREATININE, URINE RANDOM (05/18/2008 21:20 EST) Creatinine, Urn [place] 25.1 mg/dl [facility] 05/18/2008 21:2 0 EST 05/18/2008 21:23 EST us Jose Alejandro Castro MD URINALYSIS ORDERABLES Final Res ult Performing Organization Address City/[facility]/ZIP Co de Phone Number [facility] [address] [place] [address] * CALCIUM, IONIZED (05/18/2008 21:17 EST) Calcium, Ionized 1.17 1.12 - 1.32 mmol/L [facility] technical proposal [place] [id number] Test performed by Chemistry [facility] 05/18/2008 21:1 7 EST 05/18/2008 21:20 EST us Jose Alejandro Castro MD CHEMISTRY & BLOOD GAS ORDERABLE S Final Result Performing Organization Address [facility] Co de Phone Number [facility] [address] [place] [address] * GLUCOSE, SERUM (05/18/2008 21:00 EST) Glucose, Serum 77 70 - 100 mg/dl [facility] 05/18/2008 21:0 0 EST 05/18/2008 21:07 EST us Jose Alejandro Castro MD CHEMISTRY & BLOOD GAS ORDERABLE S Final Result Performing Organization Address City/[facility] Co de Phone Number [facility] [address] [place] [address] * PHOSPHORUS (05/18/2008 21:00 EST) Phosphorus 3.4 2.7 - 4.7 mg/dl [facility] 05/18/2008 21:0 0 EST 05/18/2008 21:07 EST us Jose Alejandro Castro MD CHEMISTRY & BLOOD GAS ORDERABLE S Final Result Performing Organization Address City/[facility]/ZIP Co de Phone Number [facility] [address] [place] [id number] * MAGNESIUM (05/18/2008 21:00 EST) Magnesium 1.8 1.7 - 2.8 mg/dl [facility] 05/18/2008 21:0 0 EST 05/18/2008 21:07 EST Jose Alejandro Castro MD CHEMISTRY & BLOOD GAS ORDERABLE S Final Result Performing Organization Address City/[facility]/ZIP Co de Phone Number [facility] [address] [place] [address] * CREATININE (05/18/2008 21:00 EST) Creatinine 0.60 0.6 - 1.2 mg/dl [facility] GFR, Calculated Age <18 ml/min/1.7 3m2 [facility] 05/18/2008 21:0 0 EST 05/18/2008 21:07 EST Jose Alejandro Castro MD CHEMISTRY & BLOOD GAS ORDERABLE S Final Result Performing Organization Address [facility] Co de Phone Number [facility] [address] [place] [address] * BUN (05/18/2008 21:00 EST) BUN 8 8 - 21 mg/dl [facility] 05/18/2008 21:0 0 EST 05/18/2008 21:07 EST Jose Alejandro Castro MD CHEMISTRY & BLOOD GAS ORDERABLE S Final Result Performing Organization Address City/[facility] Co de Phone Number [facility] [address] [place] [address] * (ABNORMAL) ELECTROLYTES (05/18/2008 21:00 EST) Sodium 130(L) 136 - 145 mEq/L [facility] Potassium 4.3 3.5 - 5.0 mEq/L [facility] Chloride 93(L) 96 - 110 mEq/L [facility] CO2 28 24 - 32 mEq/L [facility] 05/18/2008 21:0 0 EST 05/18/2008 21:07 EST Jose Alejandro Castro MD CHEMISTRY & BLOOD GAS ORDERABLE S Final Result Performing Organization Address [facility] Co de Phone Number [facility] [address] [place] [address] * CALCIUM IONIZED (05/18/2008 21:00 EST) Ionized Calcium Note Sample sent to Lab. [facility] 05/18/2008 21:0 0 EST 05/18/2008 21:07 EST Jose Alejandro Castro MD CHEMISTRY & BLOOD GAS ORDERABLE S Final Result Performing Organization Address [facility] de Phone Number [facility] [address] [place] [address] * GLUCOSE, GLUCOMETER (05/18/2008 15:50 EST) Pathologist [facility] Glucose, Fingerstick 90 70 - 100 mg/dl [facility] Corrections Counselor ID [id number] Test Performed by Nursing Services [facility] 05/18/2008 15:5 0 EST 05/18/2008 23:25 EST Jose Alejandro Castro MD CHEMISTRY & BLOOD GAS ORDERABLE S Final Result Performing Organization Address [facility] Phone Number [facility] [address] [place] [address] * (ABNORMAL) ELECTROLYTES (05/18/2008 15:48 EST) Sodium 135(L) 136 - 145 mEq/L [facility] Comment:Heparinized plasma. Potassium 4.0 3.5 - 5.0 mEq/L [facility] Comment:Heparinized plasma. Chloride 99 96 - 110 mEq/L [facility] Comment:Heparinized plasma. CO2 27 24 - 32 mEq/L [facility] Comment:Heparinized plasma. 05/18/2008 15:4 8 EST 05/18/2008 16:10 EST Jose Alejandro Castro MD CHEMISTRY & BLOOD GAS ORDERABLE S Final Result Performing Organization Address [facility] Phone Number [facility] [address] [place] [address] * GLUCOSE, GLUCOMETER (05/18/2008 9:24 EST) Glucose, Fingerstick 88 70 - 100 mg/dl [facility] Corrections Counselor ID [id number] Test Performed by Nursing Services [facility] 05/18/2008 9:24 EST 05/18/2008 23:25 EST Jose Alejandro Castro MD CHEMISTRY & BLOOD GAS ORDERABLE S Final Result Performing Organization Address [facility] Phone Number [facility] [address] [place] [address] * ELECTROLYTES (05/18/2008 9:20 EST) Sodium 140 136 - 145 mEq/L [facility] Comment:Heparinized plasma. Potassium 3.9 3.5 - 5.0 mEq/L [facility] Comment:Heparinized plasma. Chloride 105 96 - 110 mEq/L [facility] Comment:Heparinized plasma. CO2 26 24 - 32 mEq/L [facility] Comment:Heparinized plasma. 05/18/2008 9:20 EST 05/18/2008 9:30 EST Jose Alejandro Castro MD CHEMISTRY & BLOOD GAS ORDERABLE S Final Result Performing Organization Address [facility] de Phone Number [facility] [address] [place] [address] * GLUCOSE, SERUM (05/18/2008 3:00 EST) Glucose, Serum 97 70 - 100 mg/dl [facility] 05/18/2008 3:00 EST 05/18/2008 3:15 EST Jose Alejandro Castro MD CHEMISTRY & BLOOD GAS ORDERABLE S Final Result [facility] [address] [place] [address] * CREATININE (05/18/2008 3:00 EST) Creatinine 0.60 0.6 - 1.2 mg/dl [facility] GFR, Calculated Age <18 ml/min/1.7 3m2 [facility] 05/18/2008 3:00 EST 05/18/2008 3:15 EST Jose Alejandro Castro MD CHEMISTRY & BLOOD GAS ORDERABLE S Final Result Performing Organization Address [facility] de Phone Number [facility] [address] [place] [address] * BUN (05/18/2008 3:00 EST) BUN 9 8 - 21 mg/dl [facility] 05/18/2008 3:00 EST 05/18/2008 3:15 EST Jose Alejandro Csatro MD CHEMISTRY & BLOOD GAS ORDERABLE S Final Result Performing Organization Address [facility] Co de Phone Number [facility] [address] [place] [address] * ELECTROLYTES (05/18/2008 3:00 EST) Sodium 142 136 - 145 mEq/L [facility] Potassium 3.5 3.5 - 5.0 mEq/L [facility] Chloride 105 96 - 110 mEq/L [facility] CO2 26 24 - 32 mEq/L [facility] 05/18/2008 3:00 EST 05/18/2008 3:15 EST us Jose Alejandro Castro MD CHEMISTRY & BLOOD GAS ORDERABLE S Final Result Performing Organization Address [facility] Co de Phone Number [facility] [address] [place] [address] * GLUCOSE, SERUM (05/17/2008 21:10 EST) Glucose, Serum 82 70 - 100 mg/dl [facility] 05/17/2008 21:1 0 EST 05/17/2008 21:30 EST Jose Alejandro Castro MD CHEMISTRY & BLOOD GAS ORDERABLE S Final Result Performing Organization Address [facility] de Phone Number [facility] [address] [place] [address] * ELECTROLYTES (05/17/2008 21:10 EST) Sodium 142 136 - 145 mEq/L [facility] Potassium 4.1 3.5 - 5.0 mEq/L [facility] Chloride 105 96 - 110 mEq/L [facility] CO2 27 24 - 32 mEq/L [facility] 05/17/2008 21:1 0 EST 05/17/2008 21:30 EST Jose Alejandro Castro MD CHEMISTRY & BLOOD GAS ORDERABLE S Final Result Performing Organization Address [facility] de Phone Number [facility] [address] [place] [address] * GLUCOSE, SERUM (05/17/2008 15:00 EST) Glucose, Serum 86 70 - 100 mg/dl [facility] 05/17/2008 15:0 0 EST 05/17/2008 15:16 EST Jose Alejandro Castro MD CHEMISTRY & BLOOD GAS ORDERABLE S Final Result Performing Organization Address [facility] de Phone Number [facility] [address] [place] [address] * ELECTROLYTES (05/17/2008 15:00 EST) Sodium 137 136 - 145 mEq/L [facility] Potassium 4.1 3.5 - 5.0 mEq/L [facility] Chloride 99 96 - 110 mEq/L [facility] CO2 27 24 - 32 mEq/L [facility] 05/17/2008 15:0 0 EST 05/17/2008 15:16 EST us Jose Alejandro Castro MD CHEMISTRY & BLOOD GAS ORDERABLE S Final Result [facility] [address] [place] [address] * (ABNORMAL) T4 FREE (05/17/2008 9:00 EST) Free T4 0.7(L) 0.8 - 1.5 ng/dL [facility] 05/17/2008 9:00 EST 05/17/2008 9:29 EST us Jose Alejandro Castro MD CHEMISTRY & BLOOD GAS ORDERABLE S Final Result Performing Organization Address [facility] Co de Phone Number [facility] [address] [place] [address] * TESTS ADDED BY PHONE (05/17/2008 9:00 EST) Tests to be added FT4 [facility] Who Called [facility] Location Code M3 [facility] 05/17/2008 9:00 EST 05/17/2008 9:29 EST Jose Alejandro Castro MD CHEMISTRY & BLOOD GAS ORDERABLE S Final Result Performing Organization Address [facility] Co de Phone Number [facility] [address] [place] [address] * GLUCOSE, SERUM (05/17/2008 9:00 EST) Glucose, Serum 87 70 - 100 mg/dl [facility] Comment:Heparinized plasma. 05/17/2008 9:00 EST 05/17/2008 9:29 EST us Jose Alejandro Castro MD CHEMISTRY & BLOOD GAS ORDERABLE S Final Result Performing Organization Address City/[facility]/ZIP Co de Phone Number [facility] [address] [place] [address] * (ABNORMAL) ELECTROLYTES (05/17/2008 9:00 EST) Sodium 135(L) 136 - 145 mEq/L [facility] Comment:Heparinized plasma. Potassium 3.6 3.5 - 5.0 mEq/L [facility] Comment:Heparinized plasma. Chloride 100 96 - 110 mEq/L [facility] Comment:Heparinized plasma. CO2 23(L) 24 - 32 mEq/L [facility] Comment:Heparinized plasma. 05/17/2008 9:00 EST 05/17/2008 9:29 EST us Jose Alejandro Castro MD CHEMISTRY & BLOOD GAS ORDERABLE S Final Result Performing Organization Address [facility] de Phone Number [facility] [address] [place] [address] * HOLD GREEN TOP (05/17/2008 5:48 EST) Hold Green Top Hold for further testing. Specimen will be held for 5 days. [facility] 05/17/2008 5:48 EST 05/17/2008 5:48 EST us Jose Alejandro Castro MD LAB INFO SERVICE AND SUPPORT & PHONE RESULT Final Result Performing Organization Address [facility] Phone Number [facility] [address] [place] [address] * HOLD PURPLE TOP (05/17/2008 5:46 EST) Hold Purple Top EDTA for hematology will be discarded after 48 hours, differential not available after 12 hours. [facility] 05/17/2008 5:46 EST 05/17/2008 5:46 EST us Jose Alejandro Castro MD LAB INFO SERVICE AND SUPPORT & PHONE RESULT Final Result Performing Organization Address [facility] Co de Phone Number [facility] [address] [place] [address] * (ABNORMAL) HEMAGRAM (05/17/2008 5:46 EST) WBC 9.92 4.6 - 11.2 K/cmm [facility] RBC 3.69(L) 4.50 - 5.30 M/cmm [facility] Hemoglobin 9.9(L) 13.0 - 16.0 gm/dl [facility] HCT 29.2(L) 37.0 - 49.0 % [facility] MCV 79 78 - 98 fl [facility] MCH 26.7 pg [facility] MCHC 33.7 gm/dl [facility] PLT 638(H) 156 - 312 K/cmm [facility] RDW-CV 17.2 % [facility] 05/17/2008 5:46 EST 05/17/2008 5:46 EST Jose Alejandro Castro MD HEMATOLOGY & PF4 ORDERABLES Fin al Result Performing Organization Address [facility] de Phone Number [facility] [address] [place] [address] * GLUCOSE, SERUM (05/17/2008 5:46 EST) Glucose, Serum 76 70 - 100 mg/dl [facility] 05/17/2008 5:46 EST 05/17/2008 5:46 EST Jose Alejandro Castro MD CHEMISTRY & BLOOD GAS ORDERABLE S Final Result Performing Organization Address [facility] Co de Phone Number [facility] [address] [place] [address] * CREATININE (05/17/2008 5:46 EST) Creatinine 0.60 0.6 - 1.2 mg/dl [facility] GFR, Calculated Age <18 ml/min/1.7 3m2 [facility] 05/17/2008 5:46 EST 05/17/2008 5:46 EST Jose Alejandro Castro MD CHEMISTRY & BLOOD GAS ORDERABLE S Final Result Performing Organization Address [facility] Co de Phone Number [facility] [address] [place] [address] * (ABNORMAL) BUN (05/17/2008 5:46 EST) BUN 7(L) 8 - 21 mg/dl [facility] 05/17/2008 5:46 EST 05/17/2008 5:46 EST Jose Alejandro Castro MD CHEMISTRY & BLOOD GAS ORDERABLE S Final Result Performing Organization Address City/[facility] Co de Phone Number [facility] [address] [place] [address] * ELECTROLYTES (05/17/2008 5:46 EST) Sodium 137 136 - 145 mEq/L [facility] Potassium 4.0 3.5 - 5.0 mEq/L [facility] Chloride 101 96 - 110 mEq/L [facility] CO2 26 24 - 32 mEq/L [facility] 05/17/2008 5:46 EST 05/17/2008 5:46 EST Jose Alejandro Castro MD CHEMISTRY & BLOOD GAS ORDERABLE S Final Result Performing Organization Address City/[facility] Co de Phone Number [facility] [address] [place] [address] * GLUCOSE, SERUM (05/17/2008 2:09 EST) Glucose, Serum 79 70 - 100 mg/dl [facility] 05/17/2008 2:09 EST 05/17/2008 2:09 EST Jose Alejandro Castro MD CHEMISTRY & BLOOD GAS ORDERABLE S Final Result [facility] [address] [place] [address] * ELECTROLYTES (05/17/2008 2:09 EST) Sodium 140 136 - 145 mEq/L [facility] Potassium 4.5 3.5 - 5.0 mEq/L [facility] Chloride 105 96 - 110 mEq/L [facility] CO2 26 24 - 32 mEq/L [facility] 05/17/2008 2:09 EST 05/17/2008 2:09 EST us Jose Alejandro Castro MD CHEMISTRY & BLOOD GAS ORDERABLE S Final Result Performing Organization Address [facility] Co de Phone Number [facility] [address] [place] [address] * GLUCOSE, SERUM (05/16/2008 22:09 EST) Glucose, Serum 92 70 - 100 mg/dl [facility] 05/16/2008 22:0 9 EST 05/16/2008 22:09 EST us Jose Alejandro Castro MD CHEMISTRY & BLOOD GAS ORDERABLE S Final Result Performing Organization Address [facility] de Phone Number [facility] [address] [place] [address] * ELECTROLYTES (05/16/2008 22:09 EST) Sodium 144 136 - 145 mEq/L [facility] Potassium 3.8 3.5 - 5.0 mEq/L [facility] Chloride 108 96 - 110 mEq/L [facility] CO2 26 24 - 32 mEq/L [facility] 05/16/2008 22:0 9 EST 05/16/2008 22:09 EST us Jose Alejandro Castro MD CHEMISTRY & BLOOD GAS ORDERABLE S Final Result Performing Organization Address City/[facility] Co de Phone Number [facility] [address] [place] [address] * (ABNORMAL) GLUCOSE, SERUM (05/16/2008 18:53 EST) Glucose, Serum 106(H) 70 - 100 mg/dl [facility] 05/16/2008 18:5 3 EST 05/16/2008 18:54 EST us Jose Alejandro Castro MD CHEMISTRY & BLOOD GAS ORDERABLE S Final Result Performing Organization Address [facility] de Phone Number [facility] [address] [place] [address] * ELECTROLYTES (05/16/2008 18:53 EST) Sodium 138 136 - 145 mEq/L [facility] Potassium 3.7 3.5 - 5.0 mEq/L [facility] Chloride 102 96 - 110 mEq/L [facility] CO2 26 24 - 32 mEq/L [facility] 05/16/2008 18:5 3 EST 05/16/2008 18:54 EST Jose Alejandro Castro MD CHEMISTRY & BLOOD GAS ORDERABLE S Final Result Performing Organization Address [facility] de Phone Number [facility] [address] [place] [address] * (ABNORMAL) GLUCOSE, SERUM (05/16/2008 16:00 EST) Glucose, Serum 63(L) 70 - 100 mg/dl [facility] 05/16/2008 16:0 0 EST 05/16/2008 16:27 EST Jose Alejandro Castro MD CHEMISTRY & BLOOD GAS ORDERABLE S Final Result Performing Organization Address [facility] Phone Number [facility] [address] [place] [address] * (ABNORMAL) ELECTROLYTES (05/16/2008 16:00 EST) Sodium 134(L) 136 - 145 mEq/L [facility] Potassium 3.9 3.5 - 5.0 mEq/L [facility] Chloride 100 96 - 110 mEq/L [facility] CO2 25 24 - 32 mEq/L [facility] 05/16/2008 16:0 0 EST 05/16/2008 16:27 EST Jose Alejandro Castro MD CHEMISTRY & BLOOD GAS ORDERABLE S Final Result Performing Organization Address [facility] Co de Phone Number [facility] [address] [place] [address] * (ABNORMAL) GLUCOSE, SERUM (05/16/2008 12:59 EST) Glucose, Serum 101(H) 70 - 100 mg/dl [facility] 05/16/2008 12:5 9 EST 05/16/2008 12:59 EST Jose Alejandro Castro MD CHEMISTRY & BLOOD GAS ORDERABLE S Final Result Performing Organization Address [facility] de Phone Number [facility] [address] [place] [address] * (ABNORMAL) ELECTROLYTES (05/16/2008 12:59 EST) Sodium 135(L) 136 - 145 mEq/L [facility] Potassium 4.0 3.5 - 5.0 mEq/L [facility] Chloride 102 96 - 110 mEq/L [facility] CO2 22(L) 24 - 32 mEq/L [facility] 05/16/2008 12:5 9 EST 05/16/2008 12:59 EST Jose Alejandro Castro MD CHEMISTRY & BLOOD GAS ORDERABLE S Final Result Performing Organization Address [facility] de Phone Number [facility] [address] [place] [address] * GLUCOSE, SERUM (05/16/2008 9:58 EST) Glucose, Serum 82 70 - 100 mg/dl [facility] 05/16/2008 9:58 EST 05/16/2008 9:58 EST Jose Alejandro Castro MD CHEMISTRY & BLOOD GAS ORDERABLE S Final Result Performing Organization Address [facility] Co de Phone Number [facility] [address] [place] [address] * (ABNORMAL) ELECTROLYTES (05/16/2008 9:58 EST) Sodium 138 136 - 145 mEq/L [facility] Potassium 4.4 3.5 - 5.0 mEq/L [facility] Chloride 106 96 - 110 mEq/L [facility] CO2 22(L) 24 - 32 mEq/L [facility] 05/16/2008 9:58 EST 05/16/2008 9:58 EST Jose Alejandro Castro MD CHEMISTRY & BLOOD GAS ORDERABLE S Final Result Performing Organization Address [facility] de Phone Number [facility] [address] [place] [address] * GLUCOSE, SERUM (05/16/2008 6:50 EST) Glucose, Serum 77 70 - 100 mg/dl [facility] 05/16/2008 6:50 EST 05/16/2008 7:05 EST Jose Alejandro Castro MD CHEMISTRY & BLOOD GAS ORDERABLE S Final Result Performing Organization Address [facility] de Phone Number [facility] [address] [place] [address] * ELECTROLYTES (05/16/2008 6:50 EST) Sodium 138 136 - 145 mEq/L [facility] Potassium 4.2 3.5 - 5.0 mEq/L [facility] Chloride 105 96 - 110 mEq/L [facility] CO2 26 24 - 32 mEq/L [facility] 05/16/2008 6:50 EST 05/16/2008 7:05 EST Jose Alejandro Castro MD CHEMISTRY & BLOOD GAS ORDERABLE S Final Result Performing Organization Address [facility] de Phone Number [facility] [address] [place] [address] * TESTS ADDED BY PHONE (05/16/2008 4:15 EST) Tests to be added HIVS,HBAG,HC AB CHARGE TO [id number] [facility] Who Called [facility] Location Code [facility] 05/16/2008 4:15 EST 05/16/2008 4:23 EST us Jose Alejandro Castro MD CHEMISTRY & BLOOD GAS ORDERABLE S Final Result Performing Organization Address [facility] Phone Number [facility] [address] [place] [address] * TESTS ADDED BY PHONE (05/16/2008 4:15 EST) Tests to be added CARLOS HAY TO [facility] [id number] [facility] Who Called [email or web address] Location Code [facility] 05/16/2008 4:15 EST 05/16/2008 4:23 EST us Jose Alejandro Castro MD CHEMISTRY & BLOOD GAS ORDERABLE S Final Result Performing Organization Address [facility] Phone Number [facility] [address] [place] [address] * (ABNORMAL) TOTAL PROTEIN (05/16/2008 4:15 EST) Total Protein 5.5(L) 6.3 - 8.6 g/dl [facility] 05/16/2008 4:15 EST 05/16/2008 4:23 EST us Jose Alejandro Castro MD CHEMISTRY & BLOOD GAS ORDERABLE S Final Result Performing Organization Address City/[facility] de Phone Number [facility] [address] [place] [address] * GLUCOSE, SERUM (05/16/2008 4:15 EST) Glucose, Serum 100 70 - 100 mg/dl [facility] 05/16/2008 4:15 EST 05/16/2008 4:23 EST us Jose Alejandro Castro MD CHEMISTRY & BLOOD GAS ORDERABLE S Final Result Performing Organization Address City/[facility]/ZIP Co de Phone Number [facility] [address] [place] [address] * CREATININE (05/16/2008 4:15 EST) Creatinine 0.60 0.6 - 1.2 mg/dl [facility] GFR, Calculated Age <18 ml/min/1.7 3m2 [facility] 05/16/2008 4:15 EST 05/16/2008 4:23 EST Jose Alejandro Castro MD CHEMISTRY & BLOOD GAS ORDERABLE S Final Result [facility] [address] [place] [address] * BUN (05/16/2008 4:15 EST) BUN 9 8 - 21 mg/dl [facility] 05/16/2008 4:15 EST 05/16/2008 4:23 EST Jose Alejandro Castro MD CHEMISTRY & BLOOD GAS ORDERABLE S Final Result Performing Organization Address City/[facility]/ZIP Co de Phone Number [facility] [address] [place] [address] * TOTAL & DIRECT BILIRUBIN (05/16/2008 4:15 EST) Conjugated Bilirubin 0.0 0.0 - 0.3 mg/dl [facility] Unconjugated Bilirubin 0.7 0.1 - 1.1 mg/dl [facility] Bilirubin, Total 0.7 0.0 - 1.4 mg/dl [facility] 05/16/2008 4:15 EST 05/16/2008 4:23 EST Jose Alejandro Castro MD CHEMISTRY & BLOOD GAS ORDERABLE S Final Result [facility] [address] [place] [address] * AST (05/16/2008 4:15 EST) AST 25 15 - 46 U/L [facility] 05/16/2008 4:15 EST 05/16/2008 4:23 EST Jose Alejandro Castro MD CHEMISTRY & BLOOD GAS ORDERABLE S Final Result Performing Organization Address [facility]/ZIP Co de Phone Number [facility] [address] [place] [address] * ALT (05/16/2008 4:15 EST) ALT 41 0 - 45 U/L [facility] 05/16/2008 4:15 EST 05/16/2008 4:23 EST Jose Alejandro Castro MD CHEMISTRY & BLOOD GAS ORDERABLE S Final Result Performing Organization Address [facility] de Phone Number [facility] [address] [place] [address] * ALKALINE PHOSPHATASE (05/16/2008 4:15 EST) Alkaline Phosphatase 96 65 - 260 U/L [facility] 05/16/2008 4:15 EST 05/16/2008 4:23 EST Jose Alejandro Castro MD CHEMISTRY & BLOOD GAS ORDERABLE S Final Result Performing Organization Address [facility] de Phone Number [facility] [address] [place] [address] * (ABNORMAL) ALBUMIN (05/16/2008 4:15 EST) Albumin 2.7(L) 3.0 - 5.5 g/dl [facility] 05/16/2008 4:15 EST 05/16/2008 4:23 EST Jose Alejandro Castro MD CHEMISTRY & BLOOD GAS ORDERABLE S Final Result Performing Organization Address [facility] Co de Phone Number [facility] [address] [place] [address] * ELECTROLYTES (05/16/2008 4:15 EST) Sodium 138 136 - 145 mEq/L [facility] Potassium 4.3 3.5 - 5.0 mEq/L [facility] Chloride 106 96 - 110 mEq/L [facility] CO2 25 24 - 32 mEq/L [facility] 05/16/2008 4:15 EST 05/16/2008 4:23 EST Jose Alejandro Castro MD CHEMISTRY & BLOOD GAS ORDERABLE S Final Result Performing Organization Address [facility] Co de Phone Number [facility] [address] [place] [address] * GLUCOSE, SERUM (05/16/2008 1:05 EST) Glucose, Serum 85 70 - 100 mg/dl [facility] 05/16/2008 1:05 EST 05/16/2008 1:32 EST Jose Alejandro Castro MD CHEMISTRY & BLOOD GAS ORDERABLE S Final Result Performing Organization Address [facility] de Phone Number [facility] [address] [place] [address] * ELECTROLYTES (05/16/2008 1:05 EST) Sodium 140 136 - 145 mEq/L [facility] Potassium 4.0 3.5 - 5.0 mEq/L [facility] Chloride 107 96 - 110 mEq/L [facility] CO2 26 24 - 32 mEq/L [facility] 05/16/2008 1:05 EST 05/16/2008 1:32 EST Jose Alejandro Castro MD CHEMISTRY & BLOOD GAS ORDERABLE S Final Result Performing Organization Address [facility] de Phone Number [facility] [address] [place] [address] * GLUCOSE, SERUM (05/15/2008 22:35 EST) Glucose, Serum 70 70 - 100 mg/dl [facility] 05/15/2008 22:3 5 EST 05/15/2008 22:43 EST us Jose Alejandro Castro MD CHEMISTRY & BLOOD GAS ORDERABLE S Final Result Performing Organization Address [facility] de Phone Number [facility] [address] [place] [address] * ELECTROLYTES (05/15/2008 22:35 EST) Sodium 140 136 - 145 mEq/L [facility] Potassium 4.8 3.5 - 5.0 mEq/L [facility] Chloride 106 96 - 110 mEq/L [facility] CO2 26 24 - 32 mEq/L [facility] 05/15/2008 22:3 5 EST 05/15/2008 22:43 EST us Jose Alejandro Castro MD CHEMISTRY & BLOOD GAS ORDERABLE S Final Result Performing Organization Address [facility] Phone Number [facility] [address] [place] [address] * GLUCOSE, SERUM (05/15/2008 19:35 EST) Glucose, Serum 87 70 - 100 mg/dl [facility] 05/15/2008 19:3 5 EST 05/15/2008 19:38 EST us Jose Alejandro Castro MD CHEMISTRY & BLOOD GAS ORDERABLE S Final Result Performing Organization Address [facility] de Phone Number [facility] [address] [place] [address] * ELECTROLYTES (05/15/2008 19:35 EST) Sodium 137 136 - 145 mEq/L [facility] Potassium 4.2 3.5 - 5.0 mEq/L [facility] Chloride 101 96 - 110 mEq/L [facility] CO2 28 24 - 32 mEq/L [facility] 05/15/2008 19:3 5 EST 05/15/2008 19:38 EST us Jose Alejandro Castro MD CHEMISTRY & BLOOD GAS ORDERABLE S Final Result Performing Organization Address City/[facility] Co de Phone Number [facility] [address] [place] [address] * XRAY FEEDING TUBE PLACEMENT (05/15/2008 18:28 [...] right atrium. Chinyere Blount MD IMG DIAGNOSTIC IMAGING OR DERABLES Final Result * GLUCOSE, GLUCOMETER (05/15/2008 17:29 EST) [facility] Glucose, Fingerstick 90 70 - 100 mg/dl [facility] Corrections Counselor ID [id number] Test Performed by Nursing Services [facility] 05/15/2008 17:2 9 EST 05/15/2008 23:00 EST Jose Alejandro Castro MD CHEMISTRY & BLOOD GAS ORDERABLE S Final Result Performing Organization Address City/[facility] Co de Phone Number [facility] [address] [place] [address] * (ABNORMAL) GLUCOSE, SERUM (05/15/2008 16:32 EST) Glucose, Serum 68(L) 70 - 100 mg/dl [facility] 05/15/2008 16:3 2 EST 05/15/2008 16:32 EST Jose Alejandro Castro MD CHEMISTRY & BLOOD GAS ORDERABLE S Final Result Performing Organization Address [facility] Co de Phone Number [facility] [address] [place] [address] * (ABNORMAL) ELECTROLYTES (05/15/2008 16:32 EST) Sodium 130(L) 136 - 145 mEq/L [facility] Potassium 4.4 3.5 - 5.0 mEq/L [facility] Chloride 96 96 - 110 mEq/L [facility] CO2 26 24 - 32 mEq/L [facility] 05/15/2008 16:3 2 EST 05/15/2008 16:32 EST Jose Alejandro Castro MD CHEMISTRY & BLOOD GAS ORDERABLE S Final Result Performing Organization Address [facility] de Phone Number [facility] [address] [place] [address] * (ABNORMAL) ELECTROLYTES (05/15/2008 13:28 EST) Sodium [...] Jose Alejandro Castro MD CHEMISTRY & BLOOD GAS ORDERABLE S Final Result Performing Organization Address [facility] Co de Phone Number [facility] [address] [place] [address] * GLUCOSE, GLUCOMETER (05/15/2008 13:26 EST) Glucose, Fingerstick 70 70 - 100 mg/dl [facility] Cor[employer] Counselor [place] [id number] Test Performed by Nursing Services [facility] 05/15/2008 13:2 6 EST 05/15/2008 23:00 EST Jose Alejandro Castro MD CHEMISTRY & BLOOD GAS ORDERABLE S Final Result Performing Organization Address [facility] de Phone Number [facility] [address] [place] [address] * (ABNORMAL) ELECTROLYTES (05/15/2008 10:05 EST) Sodium 125(L) 136 - 145 mEq/L [facility] Potassium 4.2 3.5 - 5.0 mEq/L [facility] Chloride 91(L) 96 - 110 mEq/L [facility] CO2 26 24 - 32 mEq/L [facility] 05/15/2008 10:0 5 EST 05/15/2008 10:05 EST Jose Alejandro Castro MD CHEMISTRY & BLOOD GAS ORDERABLE S Final Result Performing Organization Address [facility] de Phone Number [facility] [address] [place] [address] * GLUCOSE, GLUCOMETER (05/15/2008 10:00 EST) Glucose, Fingerstick 99 70 - 100 mg/dl [facility] Cor[employer] Counselor ID [id number] Test Performed by Nursing Services [facility] 05/15/2008 10:0 0 EST 05/15/2008 23:00 EST Jose Alejandro Castro MD CHEMISTRY & BLOOD GAS ORDERABLE S Final Result Performing Organization Address [facility] de Phone Number [facility] [address] [place] [address] * (ABNORMAL) GLUCOSE, GLUCOMETER (05/15/2008 8:35 EST) Glucose, Fingerstick 113(H) 70 - 100 mg/dl [facility] Cor[employer] Counselor [place] [id number] Test Performed by Nursing Services [facility] 05/15/2008 8:35 EST 05/15/2008 23:00 EST us Jose Alejandro Castro MD CHEMISTRY & BLOOD GAS ORDERABLE S Final Result Performing Organization Address [facility] Phone Number [facility] [address] [place] [address] * OSMOLALITY, URINE (05/15/2008 8:09 EST) Osmolality, Ur 298 MOS/KG [facility] 05/15/2008 8:09 EST 05/15/2008 8:09 EST us Jose Alejandro Castro MD URINALYSIS ORDERABLES Final Res ult Performing Organization Address [facility] Phone Number [facility] [address] [place] [address] * SODIUM, URINE RANDOM (05/15/2008 8:09 EST) Sodium, Ur 133.0 mEq/L [facility] 05/15/2008 8:09 EST 05/15/2008 8:09 EST us Jose Alejandro Castro MD URINALYSIS ORDERABLES Final Res ult Performing Organization Address [facility] Phone Number [facility] [address] [place] [address] * POTASSIUM, URINE RANDOM (05/15/2008 8:09 EST) Potassium, Urine 6.4 mEq/L [facility] 05/15/2008 8:09 EST 05/15/2008 8:09 EST us Jose Alejandro Castro MD URINALYSIS ORDERABLES Final Res ult Performing Organization Address [facility] Phone Number [facility] [address] [place] [address] * CREATININE, URINE RANDOM (05/15/2008 8:09 EST) Creatinine, Urn [place] 12.8 mg/dl [facility] 05/15/2008 8:09 EST 05/15/2008 8:09 EST us Jose Alejandro Castro MD URINALYSIS ORDERABLES Final Res ult Performing Organization Address [facility] de Phone Number [facility] [address] [place] [address] * (ABNORMAL) ALBUMIN (05/15/2008 6:40 EST) Albumin 2.7(L) 3.0 - 5.5 g/dl [facility] 05/15/2008 6:40 EST 05/15/2008 7:00 EST us Jose Alejandro Castro MD CHEMISTRY & BLOOD GAS ORDERABLE S Final Result Performing Organization Address [facility] Phone Number [facility] [address] [place] [address] * (ABNORMAL) GLUCOSE, SERUM (05/15/2008 6:40 EST) Glucose, Serum 65(L) 70 - 100 mg/dl [facility] 05/15/2008 6:40 EST 05/15/2008 7:00 EST us Jose Alejandro Castro MD CHEMISTRY & BLOOD GAS ORDERABLE S Final Result Performing Organization Address [facility] de Phone Number [facility] [address] [place] [address] * (ABNORMAL) PHOSPHORUS (05/15/2008 6:40 EST) Phosphorus 2.4(L) 2.7 - 4.7 mg/dl [facility] 05/15/2008 6:40 EST 05/15/2008 7:00 EST us Jose Alejandro Castro MD CHEMISTRY & BLOOD GAS ORDERABLE S Final Result Performing Organization Address [facility] de Phone Number [facility] [address] [place] [address] * (ABNORMAL) MAGNESIUM (05/15/2008 6:40 EST) Magnesium 1.5(L) 1.7 - 2.8 mg/dl [facility] 05/15/2008 6:40 EST 05/15/2008 7:00 EST Jose Alejandro Castro MD CHEMISTRY & BLOOD GAS ORDERABLE S Final Result Performing Organization Address [facility] de Phone Number [facility] [address] [place] [address] * (ABNORMAL) CALCIUM (05/15/2008 6:40 EST) Calcium 7.5(L) 8.5 - 10.5 mg/dl [facility] Calculated Calcium 9.2 8.5 - 10.5 mg/dl [facility] 05/15/2008 6:40 EST 05/15/2008 7:00 EST us Jose Alejandro Castro MD CHEMISTRY & BLOOD GAS ORDERABLE S Final Result Performing Organization Address [facility] Phone Number [facility] [address] [place] [address] * (ABNORMAL) ELECTROLYTES (05/15/2008 6:40 EST) Sodium 123(LL) 136 - 145 mEq/L [facility] Comment:Sample retested, res ult confirmed Potassium 4.1 3.5 - 5.0 mEq/L [facility] Chloride 89(L) 96 - 110 mEq/L [facility] CO2 27 24 - 32 mEq/L [facility] 05/15/2008 6:40 EST 05/15/2008 7:00 EST us Jose Alejandro Catsro MD CHEMISTRY & BLOOD GAS ORDERABLE S Final Result Performing Organization Address [facility]/ZIP Co de Phone Number [facility] [address] [place] [address] * GLUCOSE, SERUM (05/15/2008 3:55 EST) Glucose, Serum 89 70 - 100 mg/dl [facility] 05/15/2008 3:55 EST 05/15/2008 4:03 EST Jose Alejandro Castro MD CHEMISTRY & BLOOD GAS ORDERABLE S Final Result Performing Organization Address [facility] Co de Phone Number [facility] [address] [place] [address] * (ABNORMAL) CREATININE (05/15/2008 3:55 EST) Pathologist [facility] Creatinine 0.50(L) 0.6 - 1.2 mg/dl [facility] GFR, Calculated Age <18 ml/min/1.7 3m2 [facility] 05/15/2008 3:55 EST 05/15/2008 4:03 EST Jose Alejandro Castro MD CHEMISTRY & BLOOD GAS ORDERABLE S Final Result Performing Organization Address [facility] Co de Phone Number [facility] [address] [place] [address] * (ABNORMAL) BUN (05/15/2008 3:55 EST) BUN 6(L) 8 - 21 mg/dl [facility] 05/15/2008 3:55 EST 05/15/2008 4:03 EST Jose Alejandro Castro MD CHEMISTRY & BLOOD GAS ORDERABLE S Final Result Performing Organization Address [facility] Co de Phone Number [facility] [address] [place] [address] * (ABNORMAL) ELECTROLYTES (05/15/2008 3:55 EST) Sodium 123(LL) 136 - 145 mEq/L [facility] Comment:Sample retested, res ult confirmed Potassium 3.2(L) 3.5 - 5.0 mEq/L [facility] Chloride 88(L) 96 - 110 mEq/L [facility] CO2 29 24 - 32 mEq/L [facility] 05/15/2008 3:55 EST 05/15/2008 4:03 EST us Jose Alejandro Castro MD CHEMISTRY & BLOOD GAS ORDERABLE S Final Result Performing Organization Address [facility] Phone Number [facility] [address] [place] [address] * OSMOLALITY, URINE (05/15/2008 2:10 EST) Osmolality, Ur 372 MOS/KG [facility] 05/15/2008 2:10 EST 05/15/2008 2:15 EST us Jose Alejandro Castro MD URINALYSIS ORDERABLES Final Res ult Performing Organization Address [facility] Phone Number [facility] [address] [place] [address] * SODIUM, URINE RANDOM (05/15/2008 2:10 EST) Sodium, Ur 167.0 mEq/L [facility] 05/15/2008 2:10 EST 05/15/2008 2:15 EST us Jose Alejandro Castro MD URINALYSIS ORDERABLES Final Res ult Performing Organization Address [facility] Phone Number [facility] [address] [place] [address] * GLUCOSE, SERUM (05/15/2008 0:45 EST) Glucose, Serum 97 70 - 100 mg/dl [facility] 05/15/2008 0:45 EST 05/15/2008 0:50 EST us Jose Alejandro Castro MD CHEMISTRY & BLOOD GAS ORDERABLE S Final Result Performing Organization Address [facility] Phone Number [facility] [address] [place] [address] * (ABNORMAL) PHOSPHORUS (05/15/2008 0:45 EST) Phosphorus 2.5(L) 2.7 - 4.7 mg/dl [facility] 05/15/2008 0:45 EST 05/15/2008 0:50 EST Jose Alejandro Castro MD CHEMISTRY & BLOOD GAS ORDERABLE S Final Result Performing Organization Address [facility] de Phone Number [facility] [address] [place] [address] * (ABNORMAL) MAGNESIUM (05/15/2008 0:45 EST) Magnesium 1.5(L) 1.7 - 2.8 mg/dl [facility] 05/15/2008 0:45 EST 05/15/2008 0:50 EST Jose Alejandro Castro MD CHEMISTRY & BLOOD GAS ORDERABLE S Final Result Performing Organization Address [facility] Phone Number [facility] [address] [place] [address] * (ABNORMAL) CALCIUM (05/15/2008 0:45 EST) Calcium 7.1(L) 8.5 - 10.5 mg/dl [facility] Calculated Calcium 8.9 8.5 - 10.5 mg/dl [facility] 05/15/2008 0:45 EST 05/15/2008 0:50 EST Jose Alejandro Castro MD CHEMISTRY & BLOOD GAS ORDERABLE S Final Result Performing Organization Address [facility] de Phone Number [facility] [address] [place] [address] * (ABNORMAL) ELECTROLYTES (05/15/2008 0:45 EST) Sodium 123(LL) 136 - 145 mEq/L [facility] Comment:Sample retested, res ult confirmed Potassium 3.5 3.5 - 5.0 mEq/L [facility] Chloride 90(L) 96 - 110 mEq/L [facility] CO2 26 24 - 32 mEq/L [facility] 05/15/2008 0:45 EST 05/15/2008 0:50 EST Jose Alejandro Castro MD CHEMISTRY & BLOOD GAS ORDERABLE S Final Result Performing Organization Address [facility] Phone Number [facility] [address] [place] [address] * GLUCOSE, SERUM (05/14/2008 22:10 EST) Glucose, Serum 88 70 - 100 mg/dl [facility] 05/14/2008 22:1 0 EST 05/14/2008 22:15 EST Jose Alejandro Castro MD CHEMISTRY & BLOOD GAS ORDERABLE S Final Result Performing Organization Address [facility] Phone Number [facility] [address] [place] [address] * (ABNORMAL) ELECTROLYTES (05/14/2008 22:10 EST) Sodium 125(L) 136 - 145 mEq/L [facility] Potassium 3.4(L) 3.5 - 5.0 mEq/L [facility] Chloride 92(L) 96 - 110 mEq/L [facility] CO2 26 24 - 32 mEq/L [facility] 05/14/2008 22:1 0 EST 05/14/2008 22:15 EST us Jose Alejandro Castro MD CHEMISTRY & BLOOD GAS ORDERABLE S Final Result Performing Organization Address [facility] de Phone Number [facility] [address] [place] [address] * GLUCOSE, SERUM (05/14/2008 18:50 EST) Glucose, Serum 99 70 - 100 mg/dl [facility] 05/14/2008 18:5 0 EST 05/14/2008 18:59 EST Jose Alejandro aCstro MD CHEMISTRY & BLOOD GAS ORDERABLE S Final Result Performing Organization Address [facility] de Phone Number [facility] [address] [place] [address] * (ABNORMAL) ELECTROLYTES (05/14/2008 18:50 EST) Sodium 126(L) 136 - 145 mEq/L [facility] Potassium 3.2(L) 3.5 - 5.0 mEq/L [facility] Chloride 93(L) 96 - 110 mEq/L [facility] CO2 26 24 - 32 mEq/L [facility] 05/14/2008 18:5 0 EST 05/14/2008 18:59 EST us Jose Alejandro Castro MD CHEMISTRY & BLOOD GAS ORDERABLE S Final Result Performing Organization Address [facility] Phone Number [facility] [address] [place] [address] * (ABNORMAL) PHOSPHORUS (05/14/2008 16:26 EST) Phosphorus 1.7(L) 2.7 - 4.7 mg/dl [facility] 05/14/2008 16:2 6 EST 05/14/2008 16:26 EST Jose Alejandro Castro MD CHEMISTRY & BLOOD GAS ORDERABLE S Final Result Performing Organization Address [facility] de Phone Number [facility] [address] [place] [address] * (ABNORMAL) CALCIUM (05/14/2008 16:26 EST) Calcium 6.8(L) 8.5 - 10.5 mg/dl [facility] Calculated Calcium 8.6 8.5 - 10.5 mg/dl [facility] 05/14/2008 16:2 6 EST 05/14/2008 16:26 EST us Jose Alejandro Castro MD CHEMISTRY & BLOOD GAS ORDERABLE S Final Result Performing Organization Address [facility] de Phone Number [facility] [address] [place] [address] * (ABNORMAL) GLUCOSE, SERUM (05/14/2008 16:26 EST) Glucose, Serum 107(H) 70 - 100 mg/dl [facility] 05/14/2008 16:2 6 EST 05/14/2008 16:26 EST Jose Alejandro Castro MD CHEMISTRY & BLOOD GAS ORDERABLE S Final Result Performing Organization Address [facility] de Phone Number [facility] [address] [place] [address] * (ABNORMAL) ELECTROLYTES (05/14/2008 16:26 EST) Sodium 129(L) 136 - 145 mEq/L [facility] Potassium 3.0(L) 3.5 - 5.0 mEq/L [facility] Chloride 95(L) 96 - 110 mEq/L [facility] CO2 25 24 - 32 mEq/L [facility] 05/14/2008 16:2 6 EST 05/14/2008 16:26 EST Jose Alejandro Castro MD CHEMISTRY & BLOOD GAS ORDERABLE S Final Result Performing Organization Address [facility] de Phone Number [facility] [address] [place] [address] * C. DIFFICILE TOXIN (05/14/2008 13:55 EST) Specimen Description Feces [facility] Result No C.difficil e toxin A or toxin B detected. [facility] Report Status Final 05/14/2008 [facility] 05/14/2008 13:5 5 EST 05/14/2008 16:05 EST Jose Alejandro Castro MD MICROBIOLOGY - GENERAL ORDERABL ES Final Result Performing Organization Address [facility] Co de Phone Number [facility] [address] [place] [address] * GLUCOSE, SERUM (05/14/2008 10:21 EST) Glucose, Serum 74 70 - 100 mg/dl [facility] Comment:Heparinized plasma. 05/14/2008 10:2 1 EST 05/14/2008 10:21 EST us Jose Alejandro Castro MD CHEMISTRY & BLOOD GAS ORDERABLE S Final Result Performing Organization Address [facility] de Phone Number [facility] [address] [place] [address] * (ABNORMAL) ELECTROLYTES (05/14/2008 10:21 EST) Sodium 133(L) 136 - 145 mEq/L [facility] Comment:Heparinized plasma. Potassium 3.2(L) 3.5 - 5.0 mEq/L [facility] Comment:Heparinized plasma. Chloride 100 96 - 110 mEq/L [facility] Comment:Heparinized plasma. CO2 27 24 - 32 mEq/L [facility] Comment:Heparinized plasma. 05/14/2008 10:2 1 EST 05/14/2008 10:21 EST us Jose Alejandro Castro MD CHEMISTRY & BLOOD GAS ORDERABLE S Final Result Performing Organization Address [facility] de Phone Number [facility] [address] [place] [address] * (ABNORMAL) CALCIUM, IONIZED (05/14/2008 5:38 EST) Pathologist [facility] Calcium, Ionized 1.00(L) 1.12 - 1.32 mmol/L [facility] technical proposal writer [place] [id number] Test performed by Chemistry [facility] 05/14/2008 5:38 EST 05/14/2008 5:49 EST us Jose Alejandro Castro MD CHEMISTRY & BLOOD GAS ORDERABLE S Final Result Performing Organization Address [facility] de Phone Number [facility] [address] [place] [address] * CALCIUM IONIZED (05/14/2008 5:27 EST) Ionized Calcium Note Sample sent to Lab. [facility] 05/14/2008 5:27 EST 05/14/2008 5:27 EST Jose Alejandro Castro MD CHEMISTRY & BLOOD GAS ORDERABLE S Final Result Performing Organization Address [facility] de Phone Number [facility] [address] [place] [address] * (ABNORMAL) PHOSPHORUS (05/14/2008 4:07 EST) Phosphorus 2.0(L) 2.7 - 4.7 mg/dl [facility] 05/14/2008 4:07 EST 05/14/2008 4:07 EST Jose Alejandro Castro MD CHEMISTRY & BLOOD GAS ORDERABLE S Final Result Performing Organization Address [facility] Phone Number [facility] [address] [place] [address] * (ABNORMAL) MAGNESIUM (05/14/2008 4:07 EST) Magnesium 1.5(L) 1.7 - 2.8 mg/dl [facility] 05/14/2008 4:07 EST 05/14/2008 4:07 EST Jose Alejandro Castro MD CHEMISTRY & BLOOD GAS ORDERABLE S Final Result Performing Organization Address [facility] de Phone Number [facility] [address] [place] [address] * (ABNORMAL) CALCIUM (05/14/2008 4:07 EST) Calcium 6.6(L) 8.5 - 10.5 mg/dl [facility] Calculated Calcium 8.7 8.5 - 10.5 mg/dl [facility] 05/14/2008 4:07 EST 05/14/2008 4:07 EST Jose Alejandro Castro MD CHEMISTRY & BLOOD GAS ORDERABLE S Final Result Performing Organization Address [facility] de Phone Number [facility] [address] [place] [address] * (ABNORMAL) ELECTROLYTES (05/14/2008 4:07 EST) Sodium 134(L) 136 - 145 mEq/L [facility] Potassium 2.9(LL) 3.5 - 5.0 mEq/L [facility] Comment:Sample retested, res ult confirmed Chloride 102 96 - 110 mEq/L [facility] CO2 24 24 - 32 mEq/L [facility] 05/14/2008 4:07 EST 05/14/2008 4:07 EST us Jose Alejandro Castro MD CHEMISTRY & BLOOD GAS ORDERABLE S Final Result Performing Organization Address [facility] de Phone Number [facility] [address] [place] [address] * (ABNORMAL) CREATININE (05/14/2008 4:07 EST) Creatinine 0.50(L) 0.6 - 1.2 mg/dl [facility] GFR, Calculated Age <18 ml/min/1.7 3m2 [facility] 05/14/2008 4:07 EST 05/14/2008 4:07 EST Jose Alejandro Castro MD CHEMISTRY & BLOOD GAS ORDERABLE S Final Result Performing Organization Address [facility] de Phone Number [facility] [address] [place] [address] * (ABNORMAL) BUN (05/14/2008 4:07 EST) BUN 7(L) 8 - 21 mg/dl [facility] 05/14/2008 4:07 EST 05/14/2008 4:07 EST Jose Alejandro Castro MD CHEMISTRY & BLOOD GAS ORDERABLE S Final Result Performing Organization Address [facility] de Phone Number [facility] [address] [place] [address] * (ABNORMAL) HEMAGRAM (05/14/2008 4:07 EST) Pathologist [facility] WBC 3.27(L) 4.6 - 11.2 K/cmm [facility] RBC 3.58(L) 4.50 - 5.30 M/cmm [facility] Hemoglobin 9.4(L) 13.0 - 16.0 gm/dl [facility] HCT 27.9(L) 37.0 - 49.0 % [facility] MCV 78 78 - 98 fl [facility] MCH 26.3 pg [facility] MCHC 33.8 gm/dl [facility] PLT 187 156 - 312 K/cmm [facility] RDW-CV 16.3 % [facility] 05/14/2008 4:07 EST 05/14/2008 4:07 EST Jose Alejandro Castro MD HEMATOLOGY & PF4 ORDERABLES Fin al Result Performing Organization Address [facility] de Phone Number [facility] [address] [place] [address] * GLUCOSE, GLUCOMETER (05/14/2008 4:04 EST) Pathologist [facility] Glucose, Fingerstick 97 70 - 100 mg/dl [facility] Cor[employer] Counselor ID [id number] Test Performed by Nursing Services [facility] 05/14/2008 4:04 EST 05/14/2008 23:15 EST Jose Alejandro Castro MD CHEMISTRY & BLOOD GAS ORDERABLE S Final Result Performing Organization Address [facility] Co de Phone Number [facility] [address] [place] [address] * (ABNORMAL) ELECTROLYTES (05/13/2008 22:11 EST) Sodium 134(L) 136 - 145 mEq/L [facility] Potassium 2.9(LL) 3.5 - 5.0 mEq/L [facility] Comment:Sample retested, res ult confirmed Chloride 103 96 - 110 mEq/L [facility] CO2 27 24 - 32 mEq/L [facility] 05/13/2008 22:1 1 EST 05/13/2008 22:11 EST Jose Alejandro Castro MD CHEMISTRY & BLOOD GAS ORDERABLE S Final Result Performing Organization Address [facility] de Phone Number [facility] [address] [place] [address] * GLUCOSE, GLUCOMETER (05/13/2008 22:07 EST) [facility] Signature Glucose, Fingerstick 93 70 - 100 mg/dl [facility] Cor[employer] Counselor ID [id number] Test Performed by Nursing Services [facility] 05/13/2008 22:0 7 EST 05/15/2008 8:34 EST Jose Alejandro Castro MD CHEMISTRY & BLOOD GAS ORDERABLE S Final Result Performing Organization Address [facility] de Phone Number [facility] [address] [place] [address] * XRAY FEEDING TUBE PLACEMENT (05/13/2008 21:33 [...] pylorus. Jose Alejandro Castro MD IMG DIAGNOSTIC IMAGING ORDERABL ES Final Result * (ABNORMAL) GLUCOSE, GLUCOMETER (05/13/2008 16:53 EST) Glucose, Fingerstick 105(H) 70 - 100 mg/dl [facility] Cor[employer] Counselor [place] [id number] Test Performed by Nursing Services [facility] 05/13/2008 16:5 3 EST 05/15/2008 8:34 EST Jose Alejandro Castro MD CHEMISTRY & BLOOD GAS ORDERABLE S Final Result Performing Organization Address [facility] Phone Number [facility] [address] [place] [address] * (ABNORMAL) ELECTROLYTES (05/13/2008 16:50 EST) Sodium 133(L) 136 - 145 mEq/L [facility] Potassium 2.8(LL) 3.5 - 5.0 mEq/L [facility] Comment:Sample retested, res ult confirmed Chloride 99 96 - 110 mEq/L [facility] CO2 29 24 - 32 mEq/L [facility] 05/13/2008 16:5 0 EST 05/13/2008 16:57 EST Jose Alejandro Castro MD CHEMISTRY & BLOOD GAS ORDERABLE S Final Result Performing Organization Address [facility] Phone Number [facility] [address] [place] [address] * SODIUM, URINE RANDOM (05/13/2008 13:00 EST) Sodium, Ur 130.0 mEq/L [facility] 05/13/2008 13:0 0 EST 05/13/2008 13:01 EST Jose Alejandro Castro MD URINALYSIS ORDERABLES Final Res ult Performing Organization Address [facility] de Phone Number [facility] [address] [place] [address] * MR HEAD W/WO CONTRAST (05/13/2008 11:47 [...] other new findings Jose Alejandro Castro MD IMG MRI ORDERABLES Final Result * (ABNORMAL) GLUCOSE, SERUM (05/13/2008 10:00 EST) Glucose, Serum 151(H) 70 - 100 mg/dl [facility] Comment:Sample retested, res ult confirmed 05/13/2008 10:0 0 EST 05/13/2008 10:23 EST Jose Alejandro Castro MD CHEMISTRY & BLOOD GAS ORDERABLE S Final Result [facility] [address] [place] [address] * (ABNORMAL) ALBUMIN (05/13/2008 10:00 EST) Albumin 2.2(L) 3.0 - 5.5 g/dl [facility] Comment:Sample retested, res ult confirmed 05/13/2008 10:0 0 EST 05/13/2008 10:23 EST Jose Alejandro Castro MD CHEMISTRY & BLOOD GAS ORDERABLE S Final Result Performing Organization Address [facility] Phone Number [facility] [address] [place] [address] * (ABNORMAL) ELECTROLYTES (05/13/2008 10:00 EST) Pathologist [facility] Sodium 134(L) 136 - 145 mEq/L [facility] [...] Jose Alejandro Castro MD CHEMISTRY & BLOOD GAS ORDERABLE S Final Result Performing Organization Address [facility] Phone Number [facility] [address] [place] [address] * (ABNORMAL) BNP (05/13/2008 10:00 EST) Pathologist [facility] BNP 653(H) <100 pg/ml [facility] 05/13/2008 10:0 0 EST 05/13/2008 10:23 EST Jose Alejandro Castro MD CHEMISTRY & BLOOD GAS ORDERABLE S Final Result Performing Organization Address [facility] Phone Number [facility] [address] [place] [address] * (ABNORMAL) CALCIUM, IONIZED (05/13/2008 4:18 EST) Pathologist [facility] Calcium, Ionized 1.09(L) 1.12 - 1.32 mmol/L [facility] technical [place] [id number] Test performed by Chemistry [facility] 05/13/2008 4:18 EST 05/13/2008 4:22 EST us Jose Alejandro Castro MD CHEMISTRY & BLOOD GAS ORDERABLE S Final Result Performing Organization Address City/State/[facility] Co de Phone Number [facility] [address] [place] [address] * PORTABLE ABDOMEN 1 VIEW (05/13/2008 4:15 [...] pulmonary vascularity when compared to prior exam. us Salud Nichole MD IMG DIAGNOSTIC IMAGING ORDERA BLES Final Result * PORTABLE CHEST 1 VIEW (05/13/2008 4:14 [...] compared to prior exam. Salud Nichole MD [facility] DIAGNOSTIC IMAGING ORDERA BLES Final Result * (ABNORMAL) GLUCOSE, SERUM (05/13/2008 4:13 EST) Glucose, Serum 126(H) 70 - 100 mg/dl [facility] 05/13/2008 4:13 EST 05/13/2008 4:13 EST Jose Alejandro Castro MD CHEMISTRY & BLOOD GAS ORDERABLE S Final Result [facility] [address] [place] [address] * PHOSPHORUS (05/13/2008 4:13 EST) Phosphorus 2.8 2.7 - 4.7 mg/dl [facility] 05/13/2008 4:13 EST 05/13/2008 4:13 EST Jose Alejandro Castro MD CHEMISTRY & BLOOD GAS ORDERABLE S Final Result Performing Organization Address [facility] Phone Number [facility] [address] [place] [address] * (ABNORMAL) MAGNESIUM (05/13/2008 4:13 EST) Magnesium 1.5(L) 1.7 - 2.8 mg/dl [facility] 05/13/2008 4:13 EST 05/13/2008 4:13 EST Jose Alejandro Castro MD CHEMISTRY & BLOOD GAS ORDERABLE S Final Result Performing Organization Address [facility] Phone Number [facility] [address] [place] [address] * CREATININE (05/13/2008 4:13 EST) Creatinine 0.70 0.6 - 1.2 mg/dl [facility] GFR, Calculated Age <18 ml/min/1.7 3m2 [facility] 05/13/2008 4:13 EST 05/13/2008 4:13 EST Jose Alejandro Castro MD CHEMISTRY & BLOOD GAS ORDERABLE S Final Result Performing Organization Address [facility] de Phone Number [facility] [address] [place] [address] * BUN (05/13/2008 4:13 EST) BUN 12 8 - 21 mg/dl [facility] 05/13/2008 4:13 EST 05/13/2008 4:13 EST us Jose Alejandro Castro MD CHEMISTRY & BLOOD GAS ORDERABLE S Final Result Performing Organization Address [facility] Co de Phone Number [facility] [address] [place] [address] * (ABNORMAL) ELECTROLYTES (05/13/2008 4:13 EST) Pathologist [facility] Sodium 144 136 - 145 mEq/L [facility] Potassium 3.0(L) 3.5 - 5.0 mEq/L [facility] Chloride 108 96 - 110 mEq/L [facility] CO2 29 24 - 32 mEq/L [facility] 05/13/2008 4:13 EST 05/13/2008 4:13 EST Jose Alejandro Castro MD CHEMISTRY & BLOOD GAS ORDERABLE S Final Result Performing Organization Address [facility] de Phone Number [facility] [address] [place] [address] * (ABNORMAL) HEMAGRAM AND DIFFERENTIAL (05/13/2008 4:13 EST) [facility] WBC 3.60(L) 4.6 - 11.2 K/cmm [facility] [...] [facility] ABS Neutrophils 2.51 K/cmm [facility] Lymphs 0.85 K/cmm [facility] ABS Monocytes 0.18 K/cmm [facility] Eosinophils 0.05 K/cmm [facility] Basophils 0.01 K/cmm [facility] Type of Diff: Automated [facility] 05/13/2008 4:13 EST 05/13/2008 4:13 EST Jose Alejandro Castro MD PACKAGES & DNA PROBE ORDERABLES Final Result Performing Organization Address [facility] de Phone Number [facility] [address] [place] [address] * CALCIUM IONIZED (05/13/2008 4:13 EST) Ionized Calcium Note Sample sent to Lab. [facility] 05/13/2008 4:13 EST 05/13/2008 4:13 EST Jose Alejandro Castro MD CHEMISTRY & BLOOD GAS ORDERABLE S Final Result Performing Organization Address [facility] de Phone Number [facility] [address] [place] [address] * (ABNORMAL) GLUCOSE, GLUCOMETER (05/13/2008 4:08 EST) Glucose, Fingerstick 141(H) 70 - 100 mg/dl [facility] Cor[employer] Counselor ID [id number] Test Performed by Nursing Services [facility] 05/13/2008 4:08 EST 05/15/2008 8:33 EST Jose Alejandro Castro MD CHEMISTRY & BLOOD GAS ORDERABLE S Final Result Performing Organization Address [facility] de Phone Number [facility] [address] [place] [address] * UA WITH MICROSCOPIC (05/13/2008 2:03 EST) Color, UA Straw [facility] Clarity, UA Clear [facility] Glucose, UA Norm NORM [facility] Bilirubin, UA Neg NEG [facility] Ketones, UA Neg NEG [facility] Specific Kinde, Urine 1.015 1.005 - 1.02 [facility] Blood, UA Neg NEG [facility] pH, UA 7.5 5.0 - 9.0 [facility] Protein, UA Neg NEG [facility] Urobilinogen, UA Norm NORM mg/dL [facility] Nitrite, UA Neg NEG [facility] Leuk Esterase Neg NEG [facility] WBC, UA less [...] 2:03 EST Jose Alejandro Castro MD URINALYSIS ORDERABLES Final Res ult Performing Organization Address [facility] de Phone Number [facility] [address] [place] [address] * (ABNORMAL) ELECTROLYTES (05/12/2008 21:57 EST) Pathologist [facility] Sodium 145 136 - 145 mEq/L [facility] Potassium 3.3(L) 3.5 - 5.0 mEq/L [facility] Chloride 110 96 - 110 mEq/L [facility] CO2 28 24 - 32 mEq/L [facility] 05/12/2008 21:5 7 EST 05/12/2008 21:57 EST Jose Alejandro Castro MD CHEMISTRY & BLOOD GAS ORDERABLE S Final Result Performing Organization Address [facility] Co de Phone Number [facility] [address] [place] [address] * (ABNORMAL) GLUCOSE, GLUCOMETER (05/12/2008 21:49 EST) Glucose, Fingerstick 126(H) 70 - 100 mg/dl [facility] Cor[employer] Counselor [place] [id number] Test Performed by Nursing Services [facility] 05/12/2008 21:4 9 EST 05/12/2008 23:19 EST Jose Alejandro Castro MD CHEMISTRY & BLOOD GAS ORDERABLE S Final Result Performing Organization Address [facility] de Phone Number [facility] [address] [place] [address] * (ABNORMAL) GLUCOSE, GLUCOMETER (05/12/2008 16:06 EST) Glucose, Fingerstick 119(H) 70 - 100 mg/dl [facility] Cor[employer] Counselor [place] [id number] Test Performed by Nursing Services [facility] 05/12/2008 16:0 6 EST 05/12/2008 23:19 EST Jose Alejandro Castro MD CHEMISTRY & BLOOD GAS ORDERABLE S Final Result Performing Organization Address [facility] de Phone Number [facility] [address] [place] [address] * (ABNORMAL) ELECTROLYTES (05/12/2008 16:05 EST) Sodium 146(H) 136 - 145 mEq/L [facility] Potassium 3.2(L) 3.5 - 5.0 mEq/L [facility] Chloride 111(H) 96 - 110 mEq/L [facility] CO2 29 24 - 32 mEq/L [facility] 05/12/2008 16:0 5 EST 05/12/2008 16:25 EST Jose Alejandro Castro MD CHEMISTRY & BLOOD GAS ORDERABLE S Final Result Performing Organization Address [facility] de Phone Number [facility] [address] [place] [address] * (ABNORMAL) GLUCOSE, GLUCOMETER (05/12/2008 9:21 EST) Glucose, Fingerstick 133(H) 70 - 100 mg/dl [facility] Cor[employer] Counselor ID [id number] Test Performed by Nursing Services [facility] 05/12/2008 9:21 EST 05/12/2008 23:18 EST Jose Alejandro Castro MD CHEMISTRY & BLOOD GAS ORDERABLE S Final Result Performing Organization Address City/[facility] Co de Phone Number [facility] [address] [place] [address] * (ABNORMAL) ELECTROLYTES (05/12/2008 9:20 EST) Sodium 147(H) 136 - 145 mEq/L [facility] Potassium 3.2(L) 3.5 - 5.0 mEq/L [facility] Chloride 113(H) 96 - 110 mEq/L [facility] CO2 28 24 - 32 mEq/L [facility] 05/12/2008 9:20 EST 05/12/2008 9:30 EST Jose Alejandro Castro MD CHEMISTRY & BLOOD GAS ORDERABLE S Final Result Performing Organization Address [facility]/ZIP Co de Phone Number [facility] [address] [place] [address] * CREATININE (05/12/2008 4:10 EST) Creatinine 0.70 0.6 - 1.2 mg/dl [facility] GFR, Calculated Age <18 ml/min/1.7 3m2 [facility] 05/12/2008 4:10 EST 05/12/2008 5:17 EST Jose Alejandro Castro MD CHEMISTRY & BLOOD GAS ORDERABLE S Final Result Performing Organization Address City/[facility] Co de Phone Number [facility] [address] [place] [address] * BUN (05/12/2008 4:10 EST) BUN 14 8 - 21 mg/dl [facility] 05/12/2008 4:10 EST 05/12/2008 5:17 EST Jose Alejandro Castro MD CHEMISTRY & BLOOD GAS ORDERABLE S Final Result Performing Organization Address [facility]/ZIP Co de Phone Number [facility] [address] [place] [address] * (ABNORMAL) ELECTROLYTES (05/12/2008 4:10 EST) Sodium 147(H) 136 - 145 mEq/L [facility] Potassium 3.6 3.5 - 5.0 mEq/L [facility] Chloride 113(H) 96 - 110 mEq/L [facility] CO2 28 24 - 32 mEq/L [facility] 05/12/2008 4:10 EST 05/12/2008 5:17 EST Jose Alejandro Castro MD CHEMISTRY & BLOOD GAS ORDERABLE S Final Result Performing Organization Address [facility] de Phone Number [facility] [address] [place] [address] * (ABNORMAL) HEMAGRAM AND DIFFERENTIAL (05/12/2008 4:10 EST) WBC 8.07 4.6 - 11.2 K/cmm [facility] RBC 3.33(L) 4.50 - 5.30 M/cmm [facility] Hemoglobin 8.7(L) 13.0 - 16.0 gm/dl [facility] HCT 25.8(L) 37.0 - 49.0 % [facility] MCV 77(L) 78 - 98 fl [facility] MCH 26.2 pg [facility] MCHC 33.8 gm/dl [facility] PLT 122(L) 156 - 312 K/cmm [facility] RDW-CV 17.3 % [facility] Neutrophils 82.6 % [facility] Lymphocytes 13.1 % [facility] Monocytes 3.5 % [facility] Eosinophils 0.8 % [facility] Basophils 0.0 % [facility] ABS Neutrophils 6.67 K/cmm [facility] Lymphs 1.06 K/cmm [facility] ABS Monocytes 0.28 K/cmm [facility] Eosinophils 0.06 K/cmm [facility] Basophils 0.00 K/cmm [facility] Type of Diff: Automated [facility] 05/12/2008 4:10 EST 05/12/2008 5:17 EST Jose Alejandro Castro MD PACKAGES & DNA PROBE ORDERABLES Final Result Performing Organization Address [facility] de Phone Number [facility] [address] [place] [address] * GLUCOSE, GLUCOMETER (05/11/2008 20:32 EST) Pathologist [facility] Glucose, Fingerstick 87 70 - 100 mg/dl [facility] Cor[employer] Counselor ID [id number] Test Performed by Nursing Services [facility] 05/11/2008 20:3 2 EST 05/11/2008 23:32 EST Jose Alejandro Castro MD CHEMISTRY & BLOOD GAS ORDERABLE S Final Result Performing Organization Address [facility] de Phone Number [facility] [address] [place] [address] * (ABNORMAL) ELECTROLYTES (05/11/2008 20:30 EST) [facility] Sodium 145 136 - 145 mEq/L [facility] Potassium 3.5 3.5 - 5.0 mEq/L [facility] Chloride 111(H) 96 - 110 mEq/L [facility] CO2 26 24 - 32 mEq/L [facility] 05/11/2008 20:3 0 EST 05/11/2008 20:46 EST Jose Alejandro Castro MD CHEMISTRY & BLOOD GAS ORDERABLE S Final Result Performing Organization Address [facility] de Phone Number [facility] [address] [place] [address] * MRSA MOLECULAR DETECTION (05/11/2008 18:42 EST) Pathologist [facility] Specimen Description Nares [facility] Result NEGATIVE for Methicillin Resistant Staphylococcus aureus DNA by PCR. [facility] Report Status Final 05/12/2008 [facility] 05/11/2008 18:4 2 EST 05/11/2008 18:42 EST us Jose Alejandro Castro MD MICROBIOLOGY - GENERAL ORDERABL ES Final Result Performing Organization Address [facility] de Phone Number [facility] [address] [place] [address] * (ABNORMAL) GLUCOSE, SERUM (05/11/2008 15:17 EST) Glucose, Serum 174(H) 70 - 100 mg/dl [facility] 05/11/2008 15:1 7 EST 05/11/2008 15:17 EST Jose Alejandro Castro MD CHEMISTRY & BLOOD GAS ORDERABLE S Final Result Performing Organization Address [facility] de Phone Number [facility] [address] [place] [address] * ELECTROLYTES (05/11/2008 15:17 EST) Sodium 139 136 - 145 mEq/L [facility] Potassium 4.1 3.5 - 5.0 mEq/L [facility] Chloride 107 96 - 110 mEq/L [facility] CO2 26 24 - 32 mEq/L [facility] 05/11/2008 15:1 7 EST 05/11/2008 15:17 EST us Jose Alejandro Castro MD CHEMISTRY & BLOOD GAS ORDERABLE S Final Result Performing Organization Address [facility] de Phone Number [facility] [address] [place] [address] * XRAY FEEDING TUBE PLACEMENT (05/11/2008 11:27 [...] quadrant. Jose Alejandro Castro MD IMG DIAGNOSTIC IMAGING ORDERABL ES Final Result * GLUCOSE, SERUM (05/11/2008 8:18 EST) Glucose, Serum 93 70 - 100 mg/dl [facility] Comment:Heparinized plasma. 05/11/2008 8:18 EST 05/11/2008 8:18 EST Jose Alejandro Castro MD CHEMISTRY & BLOOD GAS ORDERABLE S Final Result [facility] [address] [place] [address] * ELECTROLYTES (05/11/2008 8:18 EST) Sodium 140 136 - 145 mEq/L [facility] Comment:Heparinized plasma. Potassium 4.0 3.5 - 5.0 mEq/L [facility] Comment:Heparinized plasma. Chloride 109 96 - 110 mEq/L [facility] Comment:Heparinized plasma. CO2 27 24 - 32 mEq/L [facility] Comment:Heparinized plasma. 05/11/2008 8:18 EST 05/11/2008 8:18 EST Jose Alejandro Castro MD CHEMISTRY & BLOOD GAS ORDERABLE S Final Result Performing Organization Address [facility] Co de Phone Number [facility] [address] [place] [address] * CALCIUM, IONIZED (05/11/2008 4:07 EST) Calcium, Ionized 1.19 1.12 - 1.32 mmol/L [facility] technical proposal [place] [id number] Test performed by Chemistry [facility] 05/11/2008 4:07 EST 05/11/2008 4:14 EST Jose Alejandro Castro MD CHEMISTRY & BLOOD GAS ORDERABLE S Final Result Performing Organization Address [facility] de Phone Number [facility] [address] [place] [address] * (ABNORMAL) GLUCOSE, SERUM (05/11/2008 3:55 EST) Glucose, Serum 126(H) 70 - 100 mg/dl [facility] 05/11/2008 3:55 EST 05/11/2008 4:01 EST Jose Alejandro Castro MD CHEMISTRY & BLOOD GAS ORDERABLE S Final Result Performing Organization Address [facility] Co de Phone Number [facility] [address] [place] [address] * PHOSPHORUS (05/11/2008 3:55 EST) Phosphorus 2.9 2.7 - 4.7 mg/dl [facility] 05/11/2008 3:55 EST 05/11/2008 4:01 EST us Jose Alejandro Castro MD CHEMISTRY & BLOOD GAS ORDERABLE S Final Result [facility] [address] [place] [address] * MAGNESIUM (05/11/2008 3:55 EST) Magnesium 1.7 1.7 - 2.8 mg/dl [facility] 05/11/2008 3:55 EST 05/11/2008 4:01 EST us Jose Alejandro Castro MD CHEMISTRY & BLOOD GAS ORDERABLE S Final Result Performing Organization Address [facility]/ZIP Co de Phone Number [facility] [address] [place] [address] * CREATININE (05/11/2008 3:55 EST) Creatinine 0.60 0.6 - 1.2 mg/dl [facility] GFR, Calculated Age <18 ml/min/1.7 3m2 [facility] 05/11/2008 3:55 EST 05/11/2008 4:01 EST us Jose Alejandro Castro MD CHEMISTRY & BLOOD GAS ORDERABLE S Final Result Performing Organization Address City/[facility]/ZIP Co de Phone Number [facility] [address] [place] [address] * BUN (05/11/2008 3:55 EST) BUN 17 8 - 21 mg/dl [facility] 05/11/2008 3:55 EST 05/11/2008 4:01 EST us Jose Alejandro Castro MD CHEMISTRY & BLOOD GAS ORDERABLE S Final Result [facility] [address] [place] [address] * ELECTROLYTES (05/11/2008 3:55 EST) Sodium 139 136 - 145 mEq/L [facility] Potassium 4.0 3.5 - 5.0 mEq/L [facility] Chloride 107 96 - 110 mEq/L [facility] CO2 25 24 - 32 mEq/L [facility] 05/11/2008 3:55 EST 05/11/2008 4:01 EST us Jose Alejandro Castro MD CHEMISTRY & BLOOD GAS ORDERABLE S Final Result [facility] [address] [place] [address] * (ABNORMAL) HEMAGRAM AND DIFFERENTIAL (05/11/2008 3:55 EST) WBC 15.84(H) 4.6 - 11.2 K/cmm [facility] RBC 3.34(L) 4.50 - 5.30 M/cmm [facility] Hemoglobin 8.7(L) 13.0 - 16.0 gm/dl [facility] HCT 26.0(L) 37.0 - 49.0 % [facility] MCV 78 78 - 98 fl [facility] MCH 26.1 pg [facility] MCHC 33.5 gm/dl [facility] PLT 85(L) 156 - 312 K/cmm [facility] RDW-CV 17.3 % [facility] Neutrophils 89.0 % [facility] % Bands 1.0 % [facility] Lymphocytes 6.0 % [facility] Monocytes 4.0 % [facility] ABS Neutrophils 14.10 K/cmm [facility] ABS Bands 0.16 K/cmm [facility] ABS Lymphs 0.95 K/cmm [facility] ABS Monocytes 0.63 K/cmm [facility] RBC Morphology 1+ Anisocytosis 1+ Poikilocytosis 1+ Microcytes [facility] WBC Morphology 1+ [employer] [facility] Type of Diff: Manual [facility] 05/11/2008 3:55 EST 05/11/2008 4:01 EST Jose Alejandro Castro MD PACKAGES & DNA PROBE ORDERABLES Final Result [facility] [address] [place] [address] * CALCIUM IONIZED (05/11/2008 3:55 EST) Ionized Calcium Note Sample sent to Lab. [facility] 05/11/2008 3:55 EST 05/11/2008 4:01 EST Jose Alejandro Castro MD CHEMISTRY & BLOOD GAS ORDERABLE S Final Result Performing Organization Address [facility] Co de Phone Number [facility] [address] [place] [address] * CALCIUM, IONIZED (05/11/2008 0:56 EST) Pathologist [facility] Calcium, Ionized 1.21 1.12 - 1.32 mmol/L [facility] technical proposal writer ID [id number] Test performed by Chemistry [facility] 05/11/2008 0:56 EST 05/11/2008 0:59 EST Jose Alejandro Castro MD CHEMISTRY & BLOOD GAS ORDERABLE S Final Result Performing Organization Address [facility] Co de Phone Number [facility] [address] [place] [address] * (ABNORMAL) GLUCOSE, SERUM (05/11/2008 0:20 EST) Glucose, Serum 131(H) 70 - 100 mg/dl [facility] 05/11/2008 0:20 EST 05/11/2008 0:36 EST Jose Alejandro Castro MD CHEMISTRY & BLOOD GAS ORDERABLE S Final Result Performing Organization Address City/[facility] Co de Phone Number [facility] [address] [place] [address] * PHOSPHORUS (05/11/2008 0:20 EST) Phosphorus 2.9 2.7 - 4.7 mg/dl [facility] 05/11/2008 0:20 EST 05/11/2008 0:36 EST Jose Alejandro Castro MD CHEMISTRY & BLOOD GAS ORDERABLE S Final Result Performing Organization Address [facility] Phone Number [facility] [address] [place] [address] * MAGNESIUM (05/11/2008 0:20 EST) Magnesium 1.7 1.7 - 2.8 mg/dl [facility] 05/11/2008 0:20 EST 05/11/2008 0:36 EST Jose Alejandro Castro MD CHEMISTRY & BLOOD GAS ORDERABLE S Final Result Performing Organization Address [facility] Phone Number [facility] [address] [place] [address] * ELECTROLYTES (05/11/2008 0:20 EST) Sodium 139 136 - 145 mEq/L [facility] Potassium 4.2 3.5 - 5.0 mEq/L [facility] Chloride 105 96 - 110 mEq/L [facility] CO2 28 24 - 32 mEq/L [facility] 05/11/2008 0:20 EST 05/11/2008 0:36 EST Jose Alejandro Castro MD CHEMISTRY & BLOOD GAS ORDERABLE S Final Result Performing Organization Address [facility] de Phone Number [facility] [address] [place] [address] * CALCIUM IONIZED (05/11/2008 0:20 EST) Ionized Calcium Note Sample sent to Lab. [facility] 05/11/2008 0:20 EST 05/11/2008 0:36 EST Jose Alejandro Castro MD CHEMISTRY & BLOOD GAS ORDERABLE S Final Result Performing Organization Address City/[facility]/ZIP Co de Phone Number [facility] [address] [place] [address] * CALCIUM, IONIZED (05/10/2008 20:18 EST) Calcium, Ionized 1.19 1.12 - 1.32 mmol/L [facility] technical proposal [place] [id number] Test performed by Chemistry [facility] 05/10/2008 20:1 8 EST 05/10/2008 20:20 EST Jose Alejandro Castro MD CHEMISTRY & BLOOD GAS ORDERABLE S Final Result Performing Organization Address [facility] de Phone Number [facility] [address] [place] [address] * (ABNORMAL) GLUCOSE, SERUM (05/10/2008 19:55 EST) Glucose, Serum 126(H) 70 - 100 mg/dl [facility] 05/10/2008 19:5 5 EST 05/10/2008 20:02 EST Jose Alejandro Castro MD CHEMISTRY & BLOOD GAS ORDERABLE S Final Result Performing Organization Address [facility] de Phone Number [facility] [address] [place] [address] * PHOSPHORUS (05/10/2008 19:55 EST) Phosphorus 2.7 2.7 - 4.7 mg/dl [facility] 05/10/2008 19:5 5 EST 05/10/2008 20:02 EST Jose Alejandro Castro MD CHEMISTRY & BLOOD GAS ORDERABLE S Final Result Performing Organization Address [facility] Co de Phone Number [facility] [address] [place] [address] * MAGNESIUM (05/10/2008 19:55 EST) Magnesium 1.7 1.7 - 2.8 mg/dl [facility] 05/10/2008 19:5 5 EST 05/10/2008 20:02 EST Jose Alejandro Castro MD CHEMISTRY & BLOOD GAS ORDERABLE S Final Result Performing Organization Address City/[facility] Co de Phone Number [facility] [address] [place] [address] * ELECTROLYTES (05/10/2008 19:55 EST) Sodium 136 136 - 145 mEq/L [facility] Potassium 4.3 3.5 - 5.0 mEq/L [facility] Chloride 103 96 - 110 mEq/L [facility] CO2 25 24 - 32 mEq/L [facility] 05/10/2008 19:5 5 EST 05/10/2008 20:02 EST Jose Alejandro Castro MD CHEMISTRY & BLOOD GAS ORDERABLE S Final Result Performing Organization Address [facility] de Phone Number [facility] [address] [place] [address] * (ABNORMAL) HEMAGRAM AND DIFFERENTIAL (05/10/2008 19:55 EST) WBC 19.67(H) 4.6 - 11.2 K/cmm [facility] RBC 3.48(L) 4.50 - 5.30 M/cmm [facility] Hemoglobin 9.2(L) 13.0 - 16.0 gm/dl [facility] HCT 27.1(L) 37.0 - 49.0 % [facility] MCV 78 78 - 98 fl [facility] MCH 26.3 pg [facility] MCHC 33.9 gm/dl [facility] PLT 84(L) 156 - 312 K/cmm [facility] RDW-CV 17.1 % [facility] Neutrophils 92.0 % [facility] % Bands 2.0 % [facility] Lymphocytes 4.0 % [facility] Monocytes 2.0 % [facility] ABS Neutrophils 18.10 K/cmm [facility] ABS Bands 0.39 K/cmm [facility] ABS Lymphs 0.79 K/cmm [facility] ABS Monocytes 0.39 K/cmm [facility] RBC Morphology 1+ Anisocytosis 1+ Microcytes [facility] Type of Diff: Manual [facility] 05/10/2008 19:5 5 EST 05/10/2008 20:02 EST Jose Alejandro Castro MD PACKAGES & DNA PROBE ORDERABLES Final Result Performing Organization Address [facility] de Phone Number [facility] [address] [place] [address] * CALCIUM IONIZED (05/10/2008 19:55 EST) Ionized Calcium Note Sample sent to Lab. [facility] 05/10/2008 19:5 5 EST 05/10/2008 20:02 EST Jose Alejandro Castro MD CHEMISTRY & BLOOD GAS ORDERABLE S Final Result Performing Organization Address [facility] de Phone Number [facility] [address] [place] [address] * CALCIUM, IONIZED (05/10/2008 16:34 EST) Calcium, Ionized 1.19 1.12 - 1.32 mmol/L [facility]IS[facility] technical [place] [id number] Test performed by Chemistry [facility] 05/10/2008 16:3 4 EST 05/10/2008 16:37 EST Jose Alejandro Castro MD CHEMISTRY & BLOOD GAS ORDERABLE S Final Result Performing Organization Address [facility] de Phone Number [facility] [address] [place] [address] * (ABNORMAL) GLUCOSE, SERUM (05/10/2008 16:23 EST) Glucose, Serum 109(H) 70 - 100 mg/dl [facility] 05/10/2008 16:2 3 EST 05/10/2008 16:23 EST Jose Alejandro Castro MD CHEMISTRY & BLOOD GAS ORDERABLE S Final Result Performing Organization Address City/[facility]/ZIP Co de Phone Number [facility] [address] [place] [address] * PHOSPHORUS (05/10/2008 16:23 EST) Phosphorus 3.1 2.7 - 4.7 mg/dl [facility] 05/10/2008 16:2 3 EST 05/10/2008 16:23 EST Jose Alejandro Castro MD CHEMISTRY & BLOOD GAS ORDERABLE S Final Result Performing Organization Address [facility] de Phone Number [facility] [address] [place] [address] * MAGNESIUM (05/10/2008 16:23 EST) Magnesium 1.7 1.7 - 2.8 mg/dl [facility] 05/10/2008 16:2 3 EST 05/10/2008 16:23 EST Jose Alejandro Castro MD CHEMISTRY & BLOOD GAS ORDERABLE S Final Result Performing Organization Address [facility] de Phone Number [facility] [address] [place] [address] * (ABNORMAL) ELECTROLYTES (05/10/2008 16:23 EST) Sodium 135(L) 136 - 145 mEq/L [facility] Potassium 4.6 3.5 - 5.0 mEq/L [facility] Chloride 104 96 - 110 mEq/L [facility] CO2 27 24 - 32 mEq/L [facility] 05/10/2008 16:2 3 EST 05/10/2008 16:23 EST Jose Alejandro Castro MD CHEMISTRY & BLOOD GAS ORDERABLE S Final Result Performing Organization Address [facility] Co de Phone Number [facility] [address] [place] [address] * CALCIUM IONIZED (05/10/2008 16:23 EST) Ionized Calcium Note Sample sent to Lab. [facility] 05/10/2008 16:2 3 EST 05/10/2008 16:23 EST Jose Alejandro Castro MD CHEMISTRY & BLOOD GAS ORDERABLE S Final Result Performing Organization Address [facility] de Phone Number [facility] [address] [place] [address] * (ABNORMAL) GLUCOSE, GLUCOMETER (05/10/2008 16:16 EST) Pathologist [facility] Glucose, Fingerstick 126(H) 70 - 100 mg/dl [facility] Corrections Counselor [place] [id number] Test Performed by Nursing Services [facility] 05/10/2008 16:1 6 EST 05/10/2008 23:15 EST Jose Alejandro Castro MD CHEMISTRY & BLOOD GAS ORDERABLE S Final Result Performing Organization Address [facility] de Phone Number [facility] [address] [place] [address] * (ABNORMAL) BLOOD GAS, G3 ISTAT (05/10/2008 13:08 EST) Pathologist [facility] pH, i-STAT 7.42 7.35 - 7.45 [facility] [...] [facility] Sample Type VENOUS [facility]IS[facility] technical proposal writer ID [id number] Test Performed by Respiratory [facility] 05/10/2008 13:0 8 EST 05/10/2008 13:17 EST us Jose Alejandro Castro MD CHEMISTRY & BLOOD GAS ORDERABLE S Final Result Performing Organization Address [facility] Co de Phone Number [facility] [address] [place] [address] * SODIUM, URINE RANDOM (05/10/2008 12:27 EST) Sodium, Ur 65.0 mEq/L [facility] 05/10/2008 12:2 7 EST 05/10/2008 12:30 EST Jose Alejandro Castro MD URINALYSIS ORDERABLES Final Res ult Performing Organization Address [facility] Co de Phone Number [facility] [address] [place] [address] * CALCIUM, IONIZED (05/10/2008 12:27 EST) Calcium, Ionized 1.19 1.12 - 1.32 mmol/L ANISHA [facility] technical [place] [id number] Test performed by Chemistry [facility] 05/10/2008 12:2 7 EST 05/10/2008 12:53 EST Jose Alejandro Castro MD CHEMISTRY & BLOOD GAS ORDERABLE S Final Result Performing Organization Address [facility] de Phone Number [facility] [address] [place] [address] * (ABNORMAL) GLUCOSE, GLUCOMETER (05/10/2008 12:03 EST) Glucose, Fingerstick 120(H) 70 - 100 mg/dl [facility] Cor[employer] Counselor ID [id number] Test Performed by Nursing Services [facility] 05/10/2008 12:0 3 EST 05/10/2008 23:15 EST Jose Alejandro Castro MD CHEMISTRY & BLOOD GAS ORDERABLE S Final Result Performing Organization Address [facility] de Phone Number [facility] [address] [place] [address] * PHOSPHORUS (05/10/2008 11:28 EST) Phosphorus 2.9 2.7 - 4.7 mg/dl [facility] Comment:Heparinized plasma. 05/10/2008 11:2 8 EST 05/10/2008 12:14 EST Jose Alejandro Castro MD CHEMISTRY & BLOOD GAS ORDERABLE S Final Result Performing Organization Address [facility] Phone Number [facility] [address] [place] [address] * MAGNESIUM (05/10/2008 11:28 EST) Magnesium 1.8 1.7 - 2.8 mg/dl [facility] Comment:Heparinized plasma. 05/10/2008 11:2 8 EST 05/10/2008 12:14 EST Jose Alejandro Castro MD CHEMISTRY & BLOOD GAS ORDERABLE S Final Result Performing Organization Address [facility] Phone Number [facility] [address] [place] [address] * GLUCOSE, SERUM (05/10/2008 11:28 EST) Glucose, Serum 97 70 - 100 mg/dl [facility] Comment:Heparinized plasma. 05/10/2008 11:2 8 EST 05/10/2008 12:14 EST Jose Alejandro Castro MD CHEMISTRY & BLOOD GAS ORDERABLE S Final Result Performing Organization Address [facility] Phone Number [facility] [address] [place] [address] * (ABNORMAL) ELECTROLYTES (05/10/2008 11:28 EST) Sodium 134(L) 136 - 145 mEq/L [facility] Comment:Heparinized plasma. Potassium 4.6 3.5 - 5.0 mEq/L [facility] Comment:Heparinized plasma. Chloride 104 96 - 110 mEq/L [facility] Comment:Heparinized plasma. CO2 25 24 - 32 mEq/L [facility] Comment:Heparinized plasma. 05/10/2008 11:2 8 EST 05/10/2008 12:14 EST Jose Alejandro Castro MD CHEMISTRY & BLOOD GAS ORDERABLE S Final Result Performing Organization Address City/[facility]/ZIP Co de Phone Number [facility] [address] [place] [address] * CALCIUM IONIZED (05/10/2008 11:28 EST) Ionized Calcium Note Sample sent to Lab. [facility] 05/10/2008 11:2 8 EST 05/10/2008 12:14 EST Jose Alejandro Castro MD CHEMISTRY & BLOOD GAS ORDERABLE S Final Result Performing Organization Address City/[facility]/ZIP Co de Phone Number [facility] [address] [place] [address] * GLUCOSE, GLUCOMETER (05/10/2008 9:44 EST) [facility] Glucose, Fingerstick 95 70 - 100 mg/dl [facility] Corrections Counselor ID [id number] Test Performed by Nursing Services [facility] 05/10/2008 9:44 EST 05/10/2008 23:15 EST us Jose Alejandro Castro MD CHEMISTRY & BLOOD GAS ORDERABLE S Final Result Performing Organization Address [facility]/ZIP Co de Phone Number [facility] [address] [place] [address] * CALCIUM, IONIZED (05/10/2008 8:33 EST) [facility] Calcium, Ionized 1.20 1.12 - 1.32 mmol/L [facility]IS[facility] technical proposal writer [place] [id number] Test performed by Chemistry [facility] 05/10/2008 8:33 EST 05/10/2008 8:36 EST Jose Alejandro Castro MD CHEMISTRY & BLOOD GAS ORDERABLE S Final Result Performing Organization Address City/[facility]/ZIP Co de Phone Number [facility] [address] [place] [address] * (ABNORMAL) BLOOD GAS, CG4 ISTAT (05/10/2008 8:29 EST) pH, i-STAT 7.40 7.35 - 7.45 [facility] pCO2, i-STAT 34(L) 35 - [...] [facility] Sample Type ARTERIAL [facility]IS[facility] technical proposal writer ID [id number] Test Performed by Respiratory [facility] 05/10/2008 8:29 EST 05/10/2008 8:33 EST us Jose Alejandro Castro MD CHEMISTRY & BLOOD GAS ORDERABLE S Final Result Performing Organization Address [facility] Co de Phone Number [facility] [address] [place] [address] * TESTS ADDED BY PHONE (05/10/2008 8:28 EST) Tests to be added STAT MG,PHOS [facility] Who Called JOSELU[facility] FOR DR TONIE [facility] Location Code M3 [facility] 05/10/2008 8:28 EST 05/10/2008 8:28 EST us Jose Alejandro Castro MD CHEMISTRY & BLOOD GAS ORDERABLE S Final Result [facility] [address] [place] [address] * (ABNORMAL) ELECTROLYTES (05/10/2008 8:28 EST) Sodium 135(L) 136 - 145 mEq/L [facility] Potassium 4.6 3.5 - 5.0 mEq/L [facility] Chloride 104 96 - 110 mEq/L [facility] CO2 26 24 - 32 mEq/L [facility] 05/10/2008 8:28 EST 05/10/2008 8:28 EST Jose Alejandro Castro MD CHEMISTRY & BLOOD GAS ORDERABLE S Final Result [facility] [address] [place] [address] * CALCIUM IONIZED (05/10/2008 8:28 EST) Ionized Calcium Note Sample sent to Lab. [facility] 05/10/2008 8:28 EST 05/10/2008 8:28 EST Jose Alejandro Castro MD CHEMISTRY & BLOOD GAS ORDERABLE S Final Result Performing Organization Address City/[facility] Co de Phone Number [facility] [address] [place] [address] * PHOSPHORUS (05/10/2008 8:28 EST) Phosphorus 3.1 2.7 - 4.7 mg/dl [facility] 05/10/2008 8:28 EST 05/10/2008 8:28 EST Jose Alejandro Castro MD CHEMISTRY & BLOOD GAS ORDERABLE S Final Result Performing Organization Address [facility] Co de Phone Number [facility] [address] [place] [address] * MAGNESIUM (05/10/2008 8:28 EST) Magnesium 1.8 1.7 - 2.8 mg/dl [facility] 05/10/2008 8:28 EST 05/10/2008 8:28 EST Jose Alejandro Castro MD CHEMISTRY & BLOOD GAS ORDERABLE S Final Result Performing Organization Address City/[facility] Co de Phone Number [facility] [address] [place] [address] * (ABNORMAL) GLUCOSE, GLUCOMETER (05/10/2008 8:27 EST) Glucose, Fingerstick 102(H) 70 - 100 mg/dl [facility] Corrections Counselor ID [id number] Test Performed by Nursing Services [facility] 05/10/2008 8:27 EST 05/10/2008 23:15 EST Jose Alejandro Castro MD CHEMISTRY & BLOOD GAS ORDERABLE S Final Result Performing Organization Address [facility] de Phone Number [facility] [address] [place] [address] * (ABNORMAL) BLOOD GAS, G3 ISTAT (05/10/2008 8:19 EST) Pathologist [facility] pH, i-STAT 7.43 7.35 - 7.45 [facility] pCO2, i-STAT 37 35 - 45 mmHg [facility] pO2, i-STAT 36(L) 85 - 100 mmHg [facility] TCO2, i-STAT 26 mEq/L [facility] O2 Saturation 77 % [facility] Base Excess 0 [facility] Temperature 34.8 C [facility] FIO2 25 [facility] Sample Type VENOUS [facility] technical proposal writer ID [id number] Test Performed by Respiratory [facility] 05/10/2008 8:19 EST 05/10/2008 8:33 EST Jose Alejandro Castro MD CHEMISTRY & BLOOD GAS ORDERABLE S Final Result Performing Organization Address [facility] de Phone Number [facility] [address] [place] [address] * PORTABLE CHEST 1 VIEW (05/10/2008 7:24 EST) Anatomical Region Laterality Modality Other 05/10/2008 7:24 EST Narrative 11/21/2008 8:29 EDT acute resp failure cardex order r/o infiltrate PORTABLE CHEST 1 VIEW ??May 10, 2008 7:24:00 AM Signs and Symptoms: ??acute resp failure cardex order r/o infiltrate Comparisons: May 08 and Findings: Bibasilar airspace opacities have improved slightly over the past 2 days and likely represent predominantly atelectasis. The lungs are clear elsewhere. The cardiac silhouette and pulmonary vascularity are normal. The endotracheal tube tip is about 2 cm above the davon. The tip of the NG tube is probably in the duodenal bulb. Procedure Note Hamzah Torres, [facility] - 11/21/2008 acute resp failure cardex order r/o infiltrate PORTABLE CHEST 1 VIEW May 10, 2008 7:24:00 AM Signs and Symptoms: acute resp failure cardex order r/o infiltrate Comparisons: May 08 and Findings: Bibasilar airspace opacities have improved slightly over the past 2 days and likely represent predominantly atelectasis. The lungs are clear elsewhere. The cardiac silhouette and pulmonary vascularity are normal. The endotracheal tube tip is about 2 cm above the davon. The tip of the NG tube is probably in the duodenal bulb. us Jose Alejandro Castro MD IMG DIAGNOSTIC IMAGING ORDERABL ES Final Result * GLUCOSE, GLUCOMETER (05/10/2008 7:02 EST) Glucose, Fingerstick 83 70 - 100 mg/dl [facility] Corrections Counselor ID [id number] Test Performed by Nursing Services [facility] 05/10/2008 7:02 EST 05/10/2008 23:15 EST us Jose Alejandro Castro MD CHEMISTRY & BLOOD GAS ORDERABLE S Final Result Performing Organization Address [facility] Co de Phone Number [facility] [address] [place] [address] * (ABNORMAL) GLUCOSE, GLUCOMETER (05/10/2008 6:11 EST) Glucose, Fingerstick 110(H) 70 - 100 mg/dl [facility] Corrections Counselor ID [id number] Test Performed by Nursing Services [facility] 05/10/2008 6:11 EST 05/10/2008 23:15 EST us Jose Alejandro Castro MD CHEMISTRY & BLOOD GAS ORDERABLE S Final Result Performing Organization Address [facility] Co de Phone Number [facility] [address] [place] [address] * CALCIUM, IONIZED (05/10/2008 5:24 EST) Calcium, Ionized 1.13 1.12 - 1.32 mmol/L [facility]IS[facility] technical proposal writer [place] [id number] Test performed by Chemistry [facility] 05/10/2008 5:24 EST 05/10/2008 5:33 EST us Jose Alejandro Castro MD CHEMISTRY & BLOOD GAS ORDERABLE S Final Result Performing Organization Address City/[facility]/ZIP Co de Phone Number [facility] [address] [place] [address] * (ABNORMAL) BLOOD GAS, G3 ISTAT (05/10/2008 5:04 EST) Pathologist [facility] pH, i-STAT 7.38 7.35 - 7.45 [facility] pCO2, i-STAT 40 35 - 45 mmHg [facility] pO2, i-STAT 36(L) 85 - 100 mmHg [facility] TCO2, i-STAT 25 mEq/L [facility] O2 Saturation 71 % [facility] Base Deficit 2 [facility] Temperature 36.0 C [facility] FIO2 25 [facility] Sample Type VENOUS ANISHA [facility] technical proposal writer ID [id number] Test Performed by Respiratory [facility] 05/10/2008 5:04 EST 05/10/2008 5:38 EST us Jose Alejandro Castro MD CHEMISTRY & BLOOD GAS ORDERABLE S Final Result [facility] [address] [place] [address] * (ABNORMAL) GLUCOSE, GLUCOMETER (05/10/2008 5:02 EST) Glucose, Fingerstick 110(H) 70 - 100 mg/dl [facility] Corrections Counselor ID [id number] Test Performed by Nursing Services [facility] 05/10/2008 5:02 EST 05/10/2008 23:15 EST Jose Alejandro Castro MD CHEMISTRY & BLOOD GAS ORDERABLE S Final Result Performing Organization Address [facility] de Phone Number [facility] [address] [place] [address] * TROPONIN I (05/10/2008 5:00 EST) Troponin I pre 2012 0.19 ng/ml [facility] Comment: Reference Range: Normal: ??Less than 0.05 Indeterminate: ??0.05-0.80 Positive: ??Greater than 0.80 05/10/2008 5:00 EST 05/10/2008 5:11 EST Jose Alejandro Castro MD CHEMISTRY & BLOOD GAS ORDERABLE S Final Result Performing Organization Address [facility] Phone Number [facility] [address] [place] [address] * (ABNORMAL) CK MB WITH TOTAL CK (05/10/2008 5:00 EST) Pathologist [facility] CK 3,919 U/L [facility] MB 38.9(H) 0 - 5.0 ng/ml [facility] CK-MB Index 1.0 0 - 2.5 [facility] 05/10/2008 5:00 EST 05/10/2008 5:11 EST Jose Alejandro Castro MD CHEMISTRY & BLOOD GAS ORDERABLE S Final Result Performing Organization Address [facility] de Phone Number [facility] [address] [place] [address] * (ABNORMAL) TOTAL PROTEIN (05/10/2008 5:00 EST) Total Protein 4.2(L) 6.3 - 8.6 g/dl [facility] 05/10/2008 5:00 EST 05/10/2008 5:11 EST Jose Alejandro Castro MD CHEMISTRY & BLOOD GAS ORDERABLE S Final Result [facility] [address] [place] [address] * GLUCOSE, SERUM (05/10/2008 5:00 EST) Glucose, Serum 97 70 - 100 mg/dl [facility] 05/10/2008 5:00 EST 05/10/2008 5:11 EST Jose Alejandro Castro MD CHEMISTRY & BLOOD GAS ORDERABLE S Final Result Performing Organization Address [facility] Co de Phone Number [facility] [address] [place] [address] * PHOSPHORUS (05/10/2008 5:00 EST) Phosphorus 3.3 2.7 - 4.7 mg/dl [facility] 05/10/2008 5:00 EST 05/10/2008 5:11 EST us Jose Alejandro Castro MD CHEMISTRY & BLOOD GAS ORDERABLE S Final Result Performing Organization Address [facility] de Phone Number [facility] [address] [place] [address] * MAGNESIUM (05/10/2008 5:00 EST) Magnesium 1.8 1.7 - 2.8 mg/dl [facility] 05/10/2008 5:00 EST 05/10/2008 5:11 EST us Jose Alejandro Castro MD CHEMISTRY & BLOOD GAS ORDERABLE S Final Result Performing Organization Address [facility] Co de Phone Number [facility] [address] [place] [address] * GGT (05/10/2008 5:00 EST) GGT 23 10 - 35 U/L [facility] 05/10/2008 5:00 EST 05/10/2008 5:11 EST us Jose Alejandro Castro MD CHEMISTRY & BLOOD GAS ORDERABLE S Final Result Performing Organization Address City/[facility] Co de Phone Number [facility] [address] [place] [address] * CREATININE (05/10/2008 5:00 EST) Creatinine 0.70 0.6 - 1.2 mg/dl [facility] GFR, Calculated Age <18 ml/min/1.7 3m2 [facility] 05/10/2008 5:00 EST 05/10/2008 5:11 EST Jose Alejandro Castro MD CHEMISTRY & BLOOD GAS ORDERABLE S Final Result Performing Organization Address [facility] de Phone Number [facility] [address] [place] [address] * BUN (05/10/2008 5:00 EST) BUN 18 8 - 21 mg/dl [facility] 05/10/2008 5:00 EST 05/10/2008 5:11 EST Jose Alejandro Castro MD CHEMISTRY & BLOOD GAS ORDERABLE S Final Result Performing Organization Address [facility] de Phone Number [facility] [address] [place] [address] * (ABNORMAL) AST (05/10/2008 5:00 EST) AST 202(H) 15 - 46 U/L [facility] 05/10/2008 5:00 EST 05/10/2008 5:11 EST Jose Alejandro Castro MD CHEMISTRY & BLOOD GAS ORDERABLE S Final Result Performing Organization Address [facility] Co de Phone Number [facility] [address] [place] [address] * (ABNORMAL) ALT (05/10/2008 5:00 EST) ALT 82(H) 0 - 45 U/L [facility] 05/10/2008 5:00 EST 05/10/2008 5:11 EST Jose Alejandro Castro MD CHEMISTRY & BLOOD GAS ORDERABLE S Final Result Performing Organization Address City/[facility] Co de Phone Number [facility] [address] [place] [address] * ALKALINE PHOSPHATASE (05/10/2008 5:00 EST) Alkaline Phosphatase 112 65 - 260 U/L [facility] 05/10/2008 5:00 EST 05/10/2008 5:11 EST Jose Alejandro Castro MD CHEMISTRY & BLOOD GAS ORDERABLE S Final Result Performing Organization Address [facility] de Phone Number [facility] [address] [place] [address] * (ABNORMAL) ALBUMIN (05/10/2008 5:00 EST) Albumin 2.1(L) 3.0 - 5.5 g/dl [facility] 05/10/2008 5:00 EST 05/10/2008 5:11 EST Jose Alejandro Castro MD CHEMISTRY & BLOOD GAS ORDERABLE S Final Result Performing Organization Address [facility] de Phone Number [facility] [address] [place] [address] * (ABNORMAL) ELECTROLYTES (05/10/2008 5:00 EST) Sodium 134(L) 136 - 145 mEq/L [facility] Potassium 4.7 3.5 - 5.0 mEq/L [facility] Chloride 106 96 - 110 mEq/L [facility] CO2 24 24 - 32 mEq/L [facility] 05/10/2008 5:00 EST 05/10/2008 5:11 EST us Jose Alejandro Castro MD CHEMISTRY & BLOOD GAS ORDERABLE S Final Result Performing Organization Address [facility] de Phone Number [facility] [address] [place] [address] * (ABNORMAL) HEMAGRAM AND DIFFERENTIAL (05/10/2008 5:00 [...] LAB 05/10/2008 5:00 EST 05/10/2008 5:11 EST us Jose Alejandro Castro MD PACKAGES & DNA PROBE ORDERABLES Final Result [facility] [address] [place] [address] * (ABNORMAL) PTT (05/10/2008 5:00 EST) PTT 38(H) 20 - 35 secs [facility] Comment:Therapeutic Heparin range: 60-100 seconds 05/10/2008 5:00 EST 05/10/2008 5:11 EST Jose Alejandro Castro MD HEMATOLOGY & PF4 ORDERABLES Fin al Result Performing Organization Address [facility] de Phone Number [facility] [address] [place] [address] * (ABNORMAL) PROTIME (05/10/2008 5:00 EST) Pro Time 16.6(H) 12.0 - 15.0 secs [facility] I.N.R. 1.3(H) 0.9 - 1.1 Ratio [facility] Comment: Moderate Intensity Coumadin INR = 2.0-3.0 Adjustments in anticoagulant therapy dose should be based upon the INR and NOT the Pro Time. 05/10/2008 5:00 EST 05/10/2008 5:11 EST Jose Alejandro Castro MD HEMATOLOGY & PF4 ORDERABLES Fin al Result Performing Organization Address [facility] de Phone Number [facility] [address] [place] [address] * CALCIUM IONIZED (05/10/2008 5:00 EST) Ionized Calcium Note Sample sent to Lab. [facility] 05/10/2008 5:00 EST 05/10/2008 5:11 EST Jose Alejandro Castro MD CHEMISTRY & BLOOD GAS ORDERABLE S Final Result Performing Organization Address [facility] de Phone Number [facility] [address] [place] [address] * (ABNORMAL) BLOOD GAS, CG4 ISTAT (05/10/2008 4:59 EST) pH, i-STAT 7.41 7.35 - 7.45 [facility] pCO2, i-STAT 34(L) 35 - 45 mmHg [facility] pO2, i-STAT 102(H) 85 - 100 mmHg [facility] TCO2, i-STAT 23 mEq/L [facility] O2 Saturation 98 % [facility] Lactate, i-STAT 1.1 mmol/L [facility] Base Deficit 3 [facility] Temperature 36.0 C [facility] FIO2 25 [facility] Sample Type ARTERIAL [facility] technical proposal writer ID [id number] Test Performed by Respiratory [facility] 05/10/2008 4:59 EST 05/10/2008 5:38 EST Jose Alejandro Castro MD CHEMISTRY & BLOOD GAS ORDERABLE S Final Result Performing Organization Address [facility] Co de Phone Number [facility] [address] [place] [address] * GLUCOSE, GLUCOMETER (05/10/2008 4:03 EST) Glucose, Fingerstick 87 70 - 100 mg/dl [facility] Cor[employer] Counselor ID [id number] Test Performed by Nursing Services [facility] 05/10/2008 4:03 EST 05/10/2008 23:15 EST Jose Alejandro Castro MD CHEMISTRY & BLOOD GAS ORDERABLE S Final Result Performing Organization Address [facility] de Phone Number [facility] [address] [place] [address] * (ABNORMAL) GLUCOSE, GLUCOMETER (05/10/2008 3:00 EST) Glucose, Fingerstick 68(L) 70 - 100 mg/dl [facility] Cor[employer] Counselor ID [id number] Test Performed by Nursing Services [facility] 05/10/2008 3:00 EST 05/10/2008 23:15 EST Jose Alejandro Castro MD CHEMISTRY & BLOOD GAS ORDERABLE S Final Result Performing Organization Address [facility] de Phone Number [facility] [address] [place] [address] * (ABNORMAL) GLUCOSE, GLUCOMETER (05/10/2008 2:03 EST) Glucose, Fingerstick 116(H) 70 - 100 mg/dl [facility] Cor[employer] Counselor ID [id number] Test Performed by Nursing Services [facility] 05/10/2008 2:03 EST 05/10/2008 23:15 EST Jose Alejandro Castro MD CHEMISTRY & BLOOD GAS ORDERABLE S Final Result Performing Organization Address [facility] Co de Phone Number [facility] [address] [place] [address] * (ABNORMAL) BLOOD GAS, CG4 ISTAT (05/10/2008 [...] [facility] Sample Type ARTERIAL [facility] technical proposal writer ID [id number] Test Performed by Respiratory [facility] 05/10/2008 1:22 EST 05/10/2008 1:26 EST us Jose Alejandro Castro MD CHEMISTRY & BLOOD GAS ORDERABLE S Final Result Performing Organization Address [facility] de Phone Number [facility] [address] [place] [address] * (ABNORMAL) GLUCOSE, GLUCOMETER (05/10/2008 1:21 EST) Glucose, Fingerstick 130(H) 70 - 100 mg/dl [facility] Cor[employer] Counselor [place] [id number] Test Performed by Nursing Services [facility] 05/10/2008 1:21 EST 05/10/2008 23:15 EST us Jose Alejandro Castro MD CHEMISTRY & BLOOD GAS ORDERABLE S Final Result Performing Organization Address City/[facility]/ZIP Co de Phone Number [facility] [address] [place] [address] * CALCIUM, IONIZED (05/10/2008 1:20 EST) Calcium, Ionized 1.15 1.12 - 1.32 mmol/L [facility] technical [place] [id number] Test performed by Chemistry [facility] 05/10/2008 1:20 EST 05/10/2008 1:23 EST us Jose Alejandro Castro MD CHEMISTRY & BLOOD GAS ORDERABLE S Final Result Performing Organization Address City/[facility] Co de Phone Number [facility] [address] [place] [address] * (ABNORMAL) BLOOD GAS, G3 ISTAT (05/10/2008 1:17 EST) pH, i-STAT 7.37 7.35 - 7.45 [facility] pCO2, i-STAT 38 35 - 45 mmHg [facility] pO2, i-STAT 39(L) 85 - 100 mmHg [facility] TCO2, i-STAT 23 mEq/L [facility] O2 Saturation 74 % [facility] Base Deficit 3 [facility] Temperature 36.4 C [facility] FIO2 25 [facility] Sample Type VENOUS [facility] technical proposal writer ID [id number] Test Performed by Respiratory [facility] 05/10/2008 1:17 EST 05/10/2008 1:26 EST us Jose Alejandro Castro MD CHEMISTRY & BLOOD GAS ORDERABLE S Final Result Performing Organization Address [facility]/ZIP Co de Phone Number [facility] [address] [place] [address] * (ABNORMAL) BLOOD GAS, CG4 ISTAT (05/10/2008 1:12 EST) pH, i-STAT 7.38 7.35 - 7.45 [facility] pCO2, i-STAT 33(L) 35 - 45 mmHg [facility] pO2, i-STAT 105(H) 85 - 100 mmHg [facility] TCO2, i-STAT 20 mEq/L [facility] O2 Saturation 98 % [facility] Lactate, i-STAT 0.6 mmol/L [facility] Base Deficit 5 [facility] Temperature 36.4 C [facility] FIO2 25 [facility] Sample Type ARTERIAL [facility] technical proposal writer ID [id number] Test Performed by Respiratory [facility] 05/10/2008 1:12 EST 05/10/2008 1:26 EST Jose Alejnadro Castro MD CHEMISTRY & BLOOD GAS ORDERABLE S Final Result Performing Organization Address [facility] de Phone Number [facility] [address] [place] [address] * PHOSPHORUS (05/10/2008 1:10 EST) Pathologist [facility] Phosphorus 3.1 2.7 - 4.7 mg/dl [facility] 05/10/2008 1:10 EST 05/10/2008 1:17 EST Jose Alejandro Castro MD CHEMISTRY & BLOOD GAS ORDERABLE S Final Result Performing Organization Address [facility] de Phone Number [facility] [address] [place] [address] * MAGNESIUM (05/10/2008 1:10 EST) Pathologist [facility] Magnesium 1.9 1.7 - 2.8 mg/dl [facility] 05/10/2008 1:10 EST 05/10/2008 1:17 EST Jose Alejandro Castro MD CHEMISTRY & BLOOD GAS ORDERABLE S Final Result Performing Organization Address [facility] Co de Phone Number [facility] [address] [place] [address] * (ABNORMAL) ELECTROLYTES (05/10/2008 1:10 EST) Sodium 134(L) 136 - 145 mEq/L [facility] Potassium 5.1(H) 3.5 - 5.0 mEq/L [facility] Chloride 105 96 - 110 mEq/L [facility] CO2 21(L) 24 - 32 mEq/L [facility] 05/10/2008 1:10 EST 05/10/2008 1:17 EST Jose Alejandro Castro MD CHEMISTRY & BLOOD GAS ORDERABLE S Final Result Performing Organization Address [facility] Phone Number [facility] [address] [place] [address] * CALCIUM IONIZED (05/10/2008 1:10 EST) Ionized Calcium Note Sample sent to Lab. [facility] 05/10/2008 1:10 EST 05/10/2008 1:17 EST Jose Alejandro Castro MD CHEMISTRY & BLOOD GAS ORDERABLE S Final Result Performing Organization Address [facility] Phone Number [facility] [address] [place] [address] * (ABNORMAL) GLUCOSE, GLUCOMETER (05/10/2008 0:20 EST) Glucose, Fingerstick 115(H) 70 - 100 mg/dl [facility] Cor[employer] Counselor ID [id number] Test Performed by Nursing Services [facility] 05/10/2008 0:20 EST 05/10/2008 23:14 EST us Jose Alejandro Castro MD CHEMISTRY & BLOOD GAS ORDERABLE S Final Result Performing Organization Address [facility] Phone Number [facility] [address] [place] [address] * (ABNORMAL) GLUCOSE, GLUCOMETER (05/09/2008 23:03 EST) Glucose, Fingerstick 113(H) 70 - 100 mg/dl [facility] Cor[employer] Counselor [place] [id number] Test Performed by Nursing Services [facility] 05/09/2008 23:0 3 EST 05/09/2008 23:14 EST Jose Alejandro Castro MD CHEMISTRY & BLOOD GAS ORDERABLE S Final Result Performing Organization Address [facility]/ZIP Co de Phone Number [facility] [address] [place] [address] * (ABNORMAL) GLUCOSE, GLUCOMETER (05/09/2008 22:11 EST) Glucose, Fingerstick 118(H) 70 - 100 mg/dl [facility] Cor[employer] Counselor ID [id number] Test Performed by Nursing Services [facility] 05/09/2008 22:1 1 EST 05/09/2008 23:14 EST Jose Alejandro Castro MD CHEMISTRY & BLOOD GAS ORDERABLE S Final Result Performing Organization Address [facility] Co de Phone Number [facility] [address] [place] [address] * (ABNORMAL) CALCIUM, IONIZED (05/09/2008 21:26 EST) Calcium, Ionized 1.08(L) 1.12 - 1.32 mmol/L [facility] technical proposal writer [place] [id number] Test performed by Chemistry [facility] 05/09/2008 21:2 6 EST 05/09/2008 21:29 EST Jose Alejandro Castro MD CHEMISTRY & BLOOD GAS ORDERABLE S Final Result Performing Organization Address [facility] Co de Phone Number [facility] [address] [place] [address] * GLUCOSE, GLUCOMETER (05/09/2008 21:25 EST) Glucose, Fingerstick 87 70 - 100 mg/dl [facility] Cor[employer] Counselor ID [id number] Test Performed by Nursing Services [facility] 05/09/2008 21:2 5 EST 05/09/2008 23:14 EST us Jose Alejandro Castro MD CHEMISTRY & BLOOD GAS ORDERABLE S Final Result Performing Organization Address [facility]/ZIP Co de Phone Number [facility] [address] [place] [address] * (ABNORMAL) BLOOD GAS, G3 ISTAT (05/09/2008 21:15 EST) pH, i-STAT 7.40 7.35 - 7.45 [facility] pCO2, i-STAT 36 35 - 45 mmHg [facility] pO2, i-STAT 44(L) 85 - 100 mmHg [facility] TCO2, i-STAT 23 mEq/L [facility] O2 Saturation 79 % [facility] Base Deficit 2 [facility] Temperature 37.3 C [facility] FIO2 25 [facility] Sample Type VENOUS [facility] technical proposal writer ID [id number] Test Performed by Respiratory [facility] 05/09/2008 21:1 5 EST 05/09/2008 21:25 EST Jose Alejandro Castro MD CHEMISTRY & BLOOD GAS ORDERABLE S Final Result Performing Organization Address [facility] de Phone Number [facility] [address] [place] [address] * PHOSPHORUS (05/09/2008 21:10 EST) Phosphorus 2.9 2.7 - 4.7 mg/dl [facility] 05/09/2008 21:1 0 EST 05/09/2008 21:16 EST Jose Alejandro Castro MD CHEMISTRY & BLOOD GAS ORDERABLE S Final Result Performing Organization Address City/[facility] Co de Phone Number [facility] [address] [place] [address] * MAGNESIUM (05/09/2008 21:10 EST) Magnesium 1.9 1.7 - 2.8 mg/dl [facility] 05/09/2008 21:1 0 EST 05/09/2008 21:16 EST us Jose Alejandro Castro MD CHEMISTRY & BLOOD GAS ORDERABLE S Final Result Performing Organization Address [facility] Co de Phone Number [facility] [address] [place] [address] * (ABNORMAL) ELECTROLYTES (05/09/2008 21:10 EST) Sodium 134(L) 136 - 145 mEq/L [facility] Potassium 5.7(H) 3.5 - 5.0 mEq/L [facility] Chloride 106 96 - 110 mEq/L [facility] CO2 21(L) 24 - 32 mEq/L [facility] 05/09/2008 21:1 0 EST 05/09/2008 21:16 EST Jose Alejandro Castro MD CHEMISTRY & BLOOD GAS ORDERABLE S Final Result Performing Organization Address [facility] Co de Phone Number [facility] [address] [place] [address] * CALCIUM IONIZED (05/09/2008 21:10 EST) Ionized Calcium Note Sample sent to Lab. [facility] 05/09/2008 21:1 0 EST 05/09/2008 21:16 EST Jose Alejandro Castro MD CHEMISTRY & BLOOD GAS ORDERABLE S Final Result Performing Organization Address [facility] de Phone Number [facility] [address] [place] [address] * (ABNORMAL) BLOOD GAS, CG4 ISTAT (05/09/2008 [...] [facility] Sample Type ARTERIAL [facility] technical proposal writer ID [id number] Test Performed by Respiratory [facility] 05/09/2008 21:0 9 EST 05/09/2008 21:25 EST us Jose Alejandro Castro MD CHEMISTRY & BLOOD GAS ORDERABLE S Final Result Performing Organization Address [facility] Co de Phone Number [facility] [address] [place] [address] * GLUCOSE, GLUCOMETER (05/09/2008 20:15 EST) Glucose, Fingerstick 94 70 - 100 mg/dl [facility] Cor[employer] Counselor ID [id number] Test Performed by Nursing Services [facility] 05/09/2008 20:1 5 EST 05/09/2008 23:14 EST us Jose Alejandro Castro MD CHEMISTRY & BLOOD GAS ORDERABLE S Final Result Performing Organization Address [facility] Co de Phone Number [facility] [address] [place] [address] * GLUCOSE, GLUCOMETER (05/09/2008 19:03 EST) Glucose, Fingerstick 84 70 - 100 mg/dl [facility] Cor[employer] Counselor ID [id number] Test Performed by Nursing Services [facility] 05/09/2008 19:0 3 EST 05/09/2008 23:14 EST us Jose Alejandro Castro MD CHEMISTRY & BLOOD GAS ORDERABLE S Final Result Performing Organization Address [facility] Co de Phone Number [facility] [address] [place] [address] * GLUCOSE, GLUCOMETER (05/09/2008 18:09 EST) Glucose, Fingerstick 72 70 - 100 mg/dl [facility] Cor[employer] Counselor ID [id number] Test Performed by Nursing Services [facility] 05/09/2008 18:0 9 EST 05/09/2008 23:14 EST us Jose Alejandro Castro MD CHEMISTRY & BLOOD GAS ORDERABLE S Final Result Performing Organization Address [facility] Co de Phone Number [facility] [address] [place] [address] * CALCIUM, IONIZED (05/09/2008 17:20 EST) Calcium, Ionized 1.12 1.12 - 1.32 mmol/L [facility] technical proposal [place] [id number] Test performed by Chemistry [facility] 05/09/2008 17:2 0 EST 05/09/2008 17:24 EST us Jose Alejandro Castro MD CHEMISTRY & BLOOD GAS ORDERABLE S Final Result Performing Organization Address [facility] Co de Phone Number [facility] [address] [place] [address] * (ABNORMAL) BLOOD GAS, CG4 ISTAT (05/09/2008 17:16 EST) pH, i-STAT 7.36 7.35 - 7.45 [facility] pCO2, i-STAT 33(L) 35 - 45 mmHg [facility] pO2, i-STAT 84(L) 85 - 100 mmHg [facility] TCO2, i-STAT 20 mEq/L [facility] O2 Saturation 96 % [facility] Lactate, i-STAT 0.6 mmol/L [facility] Base Deficit 6 [facility] Temperature 36.9 C [facility] FIO2 .25 [facility] Sample Type ARTERIAL [facility] technical proposal writer ID [id number] Test Performed by Respiratory [facility] 05/09/2008 17:1 6 EST 05/09/2008 17:22 EST us Jose Alejandro Castro MD CHEMISTRY & BLOOD GAS ORDERABLE S Final Result Performing Organization Address [facility] Co de Phone Number [facility] [address] [place] [address] * (ABNORMAL) BLOOD GAS, G3 ISTAT (05/09/2008 17:09 EST) pH, i-STAT 7.39 7.35 - 7.45 [facility] pCO2, i-STAT 36 35 - 45 mmHg [facility] pO2, i-STAT 39(L) 85 - 100 mmHg [facility] TCO2, i-STAT 23 mEq/L [facility] O2 Saturation 74 % [facility] Base Deficit 3 [facility] Temperature 36.9 C [facility] FIO2 .25 [facility] Sample Type VENOUS [facility] technical proposal writer ID [id number] Test Performed by Respiratory [facility] 05/09/2008 17:0 9 EST 05/09/2008 17:22 EST us Jose Alejandro Castro MD CHEMISTRY & BLOOD GAS ORDERABLE S Final Result Performing Organization Address City/[facility]/ZIP Co de Phone Number [facility] [address] [place] [address] * GLUCOSE, GLUCOMETER (05/09/2008 17:06 EST) Glucose, Fingerstick 85 70 - 100 mg/dl [facility] Cor[employer] Counselor ID [id number] Test Performed by Nursing Services [facility] 05/09/2008 17:0 6 EST 05/09/2008 23:14 EST Jose Alejandro Castro MD CHEMISTRY & BLOOD GAS ORDERABLE S Final Result Performing Organization Address City/[facility] Co de Phone Number [facility] [address] [place] [address] * GLUCOSE, SERUM (05/09/2008 17:00 EST) Glucose, Serum 72 70 - 100 mg/dl [facility] 05/09/2008 17:0 0 EST 05/09/2008 17:15 EST us Jose Alejandro Castro MD CHEMISTRY & BLOOD GAS ORDERABLE S Final Result Performing Organization Address City/[facility] Co de Phone Number [facility] [address] [place] [address] * PHOSPHORUS (05/09/2008 17:00 EST) Phosphorus 2.9 2.7 - 4.7 mg/dl [facility] 05/09/2008 17:0 0 EST 05/09/2008 17:15 EST us Jose Alejandro Castro MD CHEMISTRY & BLOOD GAS ORDERABLE S Final Result Performing Organization Address [facility] de Phone Number [facility] [address] [place] [address] * MAGNESIUM (05/09/2008 17:00 EST) Magnesium 2.0 1.7 - 2.8 mg/dl [facility] 05/09/2008 17:0 0 EST 05/09/2008 17:15 EST Jose Alejandro Castro MD CHEMISTRY & BLOOD GAS ORDERABLE S Final Result Performing Organization Address [facility] Phone Number [facility] [address] [place] [address] * CREATININE (05/09/2008 17:00 EST) Creatinine 0.80 0.6 - 1.2 mg/dl [facility] GFR, Calculated Age <18 ml/min/1.7 3m2 [facility] 05/09/2008 17:0 0 EST 05/09/2008 17:15 EST us Jose Alejandro Castro MD CHEMISTRY & BLOOD GAS ORDERABLE S Final Result Performing Organization Address [facility] de Phone Number [facility] [address] [place] [address] * BUN (05/09/2008 17:00 EST) BUN 16 8 - 21 mg/dl [facility] 05/09/2008 17:0 0 EST 05/09/2008 17:15 EST us Jose Alejandro Castro MD CHEMISTRY & BLOOD GAS ORDERABLE S Final Result Performing Organization Address [facility] Co de Phone Number [facility] [address] [place] [address] * (ABNORMAL) ELECTROLYTES (05/09/2008 17:00 EST) Sodium 134(L) 136 - 145 mEq/L [facility] Potassium 6.1(HH) 3.5 - 5.0 mEq/L [facility] Comment:Sample retested, res ult confirmed Chloride 105 96 - 110 mEq/L [facility] CO2 23(L) 24 - 32 mEq/L [facility] 05/09/2008 17:0 0 EST 05/09/2008 17:15 EST Jose Alejandro Castro MD CHEMISTRY & BLOOD GAS ORDERABLE S Final Result Performing Organization Address [facility] Co de Phone Number [facility] [address] [place] [address] * CALCIUM IONIZED (05/09/2008 17:00 EST) Ionized Calcium Note Sample sent to Lab. [facility] 05/09/2008 17:0 0 EST 05/09/2008 17:15 EST Jose Alejandro Castro MD CHEMISTRY & BLOOD GAS ORDERABLE S Final Result Performing Organization Address [facility] Co de Phone Number [facility] [address] [place] [address] * GLUCOSE, GLUCOMETER (05/09/2008 15:58 EST) Glucose, Fingerstick 85 70 - 100 mg/dl [facility] LAB [employer] Counselor [place] [id number] Test Performed by Nursing Services [facility] 05/09/2008 15:5 8 EST 05/09/2008 23:14 EST Jose Alejandro Castro MD CHEMISTRY & BLOOD GAS ORDERABLE S Final Result Performing Organization Address City/[facility] Co de Phone Number [facility] [address] [place] [address] * GLUCOSE, GLUCOMETER (05/09/2008 15:04 EST) Glucose, Fingerstick 83 70 - 100 mg/dl [facility] Cor[employer] Counselor ID [id number] Test Performed by Nursing Services [facility] 05/09/2008 15:0 4 EST 05/09/2008 23:14 EST us Jose Alejandro Castro MD CHEMISTRY & BLOOD GAS ORDERABLE S Final Result Performing Organization Address [facility] de Phone Number [facility] [address] [place] [address] * GLUCOSE, GLUCOMETER (05/09/2008 14:05 EST) Glucose, Fingerstick 88 70 - 100 mg/dl [facility] Cor[employer] Counselor ID [id number] Test Performed by Nursing Services [facility] 05/09/2008 14:0 5 EST 05/09/2008 23:14 EST Jose Alejandro Castro MD CHEMISTRY & BLOOD GAS ORDERABLE S Final Result Performing Organization Address [facility] Phone Number [facility] [address] [place] [address] * (ABNORMAL) BLOOD GAS, G3 ISTAT (05/09/2008 13:26 EST) pH, i-STAT 7.36 7.35 - 7.45 [facility] pCO2, i-STAT 38 35 - 45 mmHg [facility] pO2, i-STAT 44(L) 85 - 100 mmHg [facility] TCO2, i-STAT 23 mEq/L [facility] O2 Saturation 78 % [facility] Base Deficit 3 [facility] Temperature 37.1 C [facility] FIO2 .30 [facility] Sample Type VENOUS [facility] technical proposal writer ID [id number] Test Performed by Respiratory [facility] 05/09/2008 13:2 6 EST 05/09/2008 13:30 EST us Jose Alejandro Castro MD CHEMISTRY & BLOOD GAS ORDERABLE S Final Result Performing Organization Address [facility] de Phone Number [facility] [address] [place] [address] * (ABNORMAL) CALCIUM, IONIZED (05/09/2008 13:21 EST) Pathologist [facility] Calcium, Ionized 1.11(L) 1.12 - 1.32 mmol/L [facility] technical proposal writer [place] [id number] Test performed by Chemistry [facility] 05/09/2008 13:2 1 EST 05/09/2008 13:30 EST Jose Alejandro Castro MD CHEMISTRY & BLOOD GAS ORDERABLE S Final Result Performing Organization Address City/[facility] Co de Phone Number [facility] [address] [place] [address] * (ABNORMAL) BLOOD GAS, CG4 ISTAT (05/09/2008 13:12 EST) Pathologist [facility] pH, i-STAT 7.39 7.35 - 7.45 [facility] [...] [facility] Sample Type ARTERIAL [facility]IS[facility] technical proposal writer ID [id number] Test Performed by Respiratory [facility] 05/09/2008 13:1 2 EST 05/09/2008 13:30 EST Jose Alejandro Castro MD CHEMISTRY & BLOOD GAS ORDERABLE S Final Result Performing Organization Address [facility] Co de Phone Number [facility] [address] [place] [address] * GLUCOSE, GLUCOMETER (05/09/2008 13:08 EST) Pathologist [facility] Glucose, Fingerstick 94 70 - 100 mg/dl [facility] Cor[employer] Counselor ID [id number] Test Performed by Nursing Services [facility] 05/09/2008 13:0 8 EST 05/09/2008 23:14 EST Jose Alejandro Castro MD CHEMISTRY & BLOOD GAS ORDERABLE S Final Result Performing Organization Address [facility] Phone Number [facility] [address] [place] [address] * GLUCOSE, SERUM (05/09/2008 13:00 EST) Glucose, Serum 87 70 - 100 mg/dl [facility] 05/09/2008 13:0 0 EST 05/09/2008 13:13 EST Jose Alejandro Castro MD CHEMISTRY & BLOOD GAS ORDERABLE S Final Result Performing Organization Address [facility] Phone Number [facility] [address] [place] [address] * PHOSPHORUS (05/09/2008 13:00 EST) Phosphorus 3.2 2.7 - 4.7 mg/dl [facility] 05/09/2008 13:0 0 EST 05/09/2008 13:13 EST Jose Alejandro Castro MD CHEMISTRY & BLOOD GAS ORDERABLE S Final Result Performing Organization Address [facility] Phone Number [facility] [address] [place] [address] * MAGNESIUM (05/09/2008 13:00 EST) Magnesium 1.9 1.7 - 2.8 mg/dl [facility] 05/09/2008 13:0 0 EST 05/09/2008 13:13 EST us Jose Alejandro Castro MD CHEMISTRY & BLOOD GAS ORDERABLE S Final Result Performing Organization Address [facility] Phone Number [facility] [address] [place] [address] * (ABNORMAL) ELECTROLYTES (05/09/2008 13:00 EST) Sodium 133(L) 136 - 145 mEq/L [facility] Potassium 5.8(H) 3.5 - 5.0 mEq/L [facility] Chloride 106 96 - 110 mEq/L [facility] CO2 21(L) 24 - 32 mEq/L [facility] 05/09/2008 13:0 0 EST 05/09/2008 13:13 EST Jose Alejandro Castro MD CHEMISTRY & BLOOD GAS ORDERABLE S Final Result Performing Organization Address [facility] Co de Phone Number [facility] [address] [place] [address] * CALCIUM IONIZED (05/09/2008 13:00 EST) Ionized Calcium Note Sample sent to Lab. [facility] 05/09/2008 13:0 0 EST 05/09/2008 13:13 EST Jose Alejandro Castro MD CHEMISTRY & BLOOD GAS ORDERABLE S Final Result Performing Organization Address [facility] de Phone Number [facility] [address] [place] [address] * (ABNORMAL) GLUCOSE, GLUCOMETER (05/09/2008 11:57 EST) Glucose, Fingerstick 104(H) 70 - 100 mg/dl [facility] Corrections Counselor ID [id number] Test Performed by Nursing Services [facility] 05/09/2008 11:5 7 EST 05/09/2008 23:14 EST Jose Alejandro Castro MD CHEMISTRY & BLOOD GAS ORDERABLE S Final Result Performing Organization Address [facility] de Phone Number [facility] [address] [place] [address] * (ABNORMAL) GLUCOSE, GLUCOMETER (05/09/2008 11:07 EST) Glucose, Fingerstick 128(H) 70 - 100 mg/dl [facility] Corrections Counselor ID [id number] Test Performed by Nursing Services [facility] 05/09/2008 11:0 7 EST 05/09/2008 23:14 EST us Jose Alejandro Castro MD CHEMISTRY & BLOOD GAS ORDERABLE S Final Result Performing Organization Address [facility] Co de Phone Number [facility] [address] [place] [address] * (ABNORMAL) GLUCOSE, GLUCOMETER (05/09/2008 10:17 EST) Glucose, Fingerstick 123(H) 70 - 100 mg/dl [facility] Corrections Counselor ID [id number] Test Performed by Nursing Services [facility] 05/09/2008 10:1 7 EST 05/09/2008 23:14 EST Jose Alejandro Castro MD CHEMISTRY & BLOOD GAS ORDERABLE S Final Result Performing Organization Address [facility] Phone Number [facility] [address] [place] [address] * SODIUM, URINE RANDOM (05/09/2008 10:17 EST) Sodium, Ur 99.0 mEq/L [facility] 05/09/2008 10:1 7 EST 05/09/2008 10:27 EST Jose Alejandro Castro MD URINALYSIS ORDERABLES Final Res ult Performing Organization Address [facility] de Phone Number [facility] [address] [place] [address] * (ABNORMAL) GLUCOSE, GLUCOMETER (05/09/2008 9:10 EST) Glucose, Fingerstick 105(H) 70 - 100 mg/dl [facility] Corrections Counselor ID [id number] Test Performed by Nursing Services [facility] 05/09/2008 9:10 EST 05/09/2008 23:14 EST us Jose Alejandro Castro MD CHEMISTRY & BLOOD GAS ORDERABLE S Final Result Performing Organization Address [facility] Co de Phone Number [facility] [address] [place] [address] * (ABNORMAL) CALCIUM, IONIZED (05/09/2008 8:24 EST) Calcium, Ionized 1.07(L) 1.12 - 1.32 mmol/L [facility] technical proposal [place] [id number] Test performed by Chemistry [facility] 05/09/2008 8:24 EST 05/09/2008 8:27 EST us Jose Alejandro Castro MD CHEMISTRY & BLOOD GAS ORDERABLE S Final Result Performing Organization Address [facility]/ZIP Co de Phone Number [facility] [address] [place] [address] * (ABNORMAL) BLOOD GAS, G3 ISTAT (05/09/2008 8:18 EST) pH, i-STAT 7.36 7.35 - 7.45 [facility] pCO2, i-STAT 37 35 - 45 mmHg [facility] pO2, i-STAT 40(L) 85 - 100 mmHg [facility] TCO2, i-STAT 22 mEq/L [facility] O2 Saturation 73 % [facility] Base Deficit 4 [facility]AE [facility] Temperature 36.9 C [facility] FIO2 .40 [facility] Sample Type VENOUS [facility]IS[facility] technical proposal writer ID [id number] Test Performed by Respiratory [facility] 05/09/2008 8:18 EST 05/09/2008 8:25 EST us Jose Alejandro Castro MD CHEMISTRY & BLOOD GAS ORDERABLE S Final Result [facility] [address] [place] [address] * (ABNORMAL) BLOOD GAS, CG4 ISTAT (05/09/2008 8:08 EST) pH, i-STAT 7.38 7.35 - 7.45 [facility] pCO2, i-STAT 29(L) 35 - 45 mmHg [facility] pO2, i-STAT 138(H) 85 - 100 mmHg [facility] TCO2, i-STAT 18 mEq/L [facility] O2 Saturation 99 % [facility] Lactate, i-STAT 1.2 mmol/L [facility] Base Deficit 7 [facility] Temperature 36.9 C [facility] FIO2 .40 [facility] Sample Type ARTERIAL [facility] technical proposal writer ID [id number] Test Performed by Respiratory [facility] 05/09/2008 8:08 EST 05/09/2008 8:25 EST Jose Alejandro Castro MD CHEMISTRY & BLOOD GAS ORDERABLE S Final Result Performing Organization Address [facility] Co de Phone Number [facility] [address] [place] [address] * (ABNORMAL) GLUCOSE, GLUCOMETER (05/09/2008 8:05 EST) Glucose, Fingerstick 109(H) 70 - 100 mg/dl [facility] Corrections Counselor ID [id number] Test Performed by Nursing Services [facility] 05/09/2008 8:05 EST 05/09/2008 23:14 EST Jose Alejandro Castro MD CHEMISTRY & BLOOD GAS ORDERABLE S Final Result Performing Organization Address [facility] Co de Phone Number [facility] [address] [place] [address] * (ABNORMAL) GLUCOSE, SERUM (05/09/2008 8:00 EST) Glucose, Serum 103(H) 70 - 100 mg/dl [facility] Comment:Heparinized plasma. 05/09/2008 8:00 EST 05/09/2008 8:19 EST Jose Alejandro Castro MD CHEMISTRY & BLOOD GAS ORDERABLE S Final Result Performing Organization Address [facility] Co de Phone Number [facility] [address] [place] [address] * PHOSPHORUS (05/09/2008 8:00 EST) Phosphorus 3.2 2.7 - 4.7 mg/dl [facility] Comment:Heparinized plasma. 05/09/2008 8:00 EST 05/09/2008 8:19 EST us Jose Alejandro Castro MD CHEMISTRY & BLOOD GAS ORDERABLE S Final Result Performing Organization Address [facility] de Phone Number [facility] [address] [place] [address] * MAGNESIUM (05/09/2008 8:00 EST) Magnesium 1.7 1.7 - 2.8 mg/dl [facility] Comment:Heparinized plasma. 05/09/2008 8:00 EST 05/09/2008 8:19 EST Jose Alejandro Castro MD CHEMISTRY & BLOOD GAS ORDERABLE S Final Result Performing Organization Address [facility] Phone Number [facility] [address] [place] [address] * (ABNORMAL) ELECTROLYTES (05/09/2008 8:00 EST) Sodium 133(L) 136 - 145 mEq/L [facility] Comment:Heparinized plasma. Potassium 5.6(H) 3.5 - 5.0 mEq/L [facility] Comment:Heparinized plasma. Chloride 106 96 - 110 mEq/L [facility] Comment:Heparinized plasma. CO2 21(L) 24 - 32 mEq/L [facility] Comment:Heparinized plasma. 05/09/2008 8:00 EST 05/09/2008 8:19 EST us Jose Alejandro Castro MD CHEMISTRY & BLOOD GAS ORDERABLE S Final Result Performing Organization Address [facility] de Phone Number [facility] [address] [place] [address] * CALCIUM IONIZED (05/09/2008 8:00 EST) Ionized Calcium Note Sample sent to Lab. [facility] 05/09/2008 8:00 EST 05/09/2008 8:19 EST us Jose Alejandro Castro MD CHEMISTRY & BLOOD GAS ORDERABLE S Final Result [facility] [address] [place] [address] * PORTABLE CHEST 1 VIEW (05/09/2008 7:15 [...] highly suspicious for pneumonia, no improvement seen. Result [facility] Jessika Rivera MD IMG DIAGNOSTIC IMAGING ORDER LYNDSEY Final Result * (ABNORMAL) GLUCOSE, GLUCOMETER (05/09/2008 7:00 EST) Glucose, Fingerstick 62(L) 70 - 100 mg/dl [facility] Corrections Counselor ID [id number] Test Performed by Nursing Services [facility] 05/09/2008 7:00 EST 05/09/2008 23:14 EST Result [facility] Jose Alejandro Castro MD CHEMISTRY & BLOOD GAS ORDERABLE S Final Result Performing Organization Address [facility] de Phone Number [facility] [address] [place] [address] * GLUCOSE, GLUCOMETER (05/09/2008 6:03 EST) Glucose, Fingerstick 78 70 - 100 mg/dl [facility] Corrections Counselor ID [id number] Test Performed by Nursing Services [facility] 05/09/2008 6:03 EST 05/09/2008 23:14 EST Result [facility] Jose Alejandro Castro MD CHEMISTRY & BLOOD GAS ORDERABLE S Final Result Performing Organization Address City/[facility] Co de Phone Number [facility] [address] [place] [address] * TROPONIN I (05/09/2008 5:20 EST) Troponin I pre 2011 0.73 ng/ml [facility] Comment: Reference Range: Normal: ??Less than 0.05 Indeterminate: ??0.05-0.80 Positive: ??Greater than 0.80 05/09/2008 5:20 EST 05/09/2008 5:23 EST Result [facility] Jose Alejandro Castro MD CHEMISTRY & BLOOD GAS ORDERABLE S Final Result Performing Organization Address [facility] Co de Phone Number [facility] [address] [place] [address] * (ABNORMAL) CK MB WITH TOTAL CK (05/09/2008 5:20 EST) CK 6,434 U/L [facility] MB 125.6(H) 0 - 5.0 ng/ml [facility] CK-MB Index 2.0 0 - 2.5 [facility] 05/09/2008 5:20 EST 05/09/2008 5:23 EST Jose Alejandro Castro MD CHEMISTRY & BLOOD GAS ORDERABLE S Final Result Performing Organization Address [facility] de Phone Number [facility] [address] [place] [address] * (ABNORMAL) GLUCOSE, GLUCOMETER (05/09/2008 5:00 EST) Glucose, Fingerstick 119(H) 70 - 100 mg/dl [facility] Corrections Counselor ID [id number] Test Performed by Nursing Services [facility] 05/09/2008 5:00 EST 05/09/2008 23:14 EST Jose Alejandro Castro MD CHEMISTRY & BLOOD GAS ORDERABLE S Final Result Performing Organization Address [facility] de Phone Number [facility] [address] [place] [address] * (ABNORMAL) CALCIUM, IONIZED (05/09/2008 4:27 EST) Calcium, Ionized 1.05(L) 1.12 - 1.32 mmol/L [facility] technical proposal writer [place] [id number] Test performed by Chemistry [facility] 05/09/2008 4:27 EST 05/09/2008 4:31 EST Jose Alejandro Castro MD CHEMISTRY & BLOOD GAS ORDERABLE S Final Result Performing Organization Address City/[facility]/ZIP Co de Phone Number [facility] [address] [place] [address] * (ABNORMAL) BLOOD GAS, G3 ISTAT (05/09/2008 4:19 EST) pH, i-STAT 7.33(L) 7.35 - 7.45 [facility] pCO2, i-STAT 35 35 - 45 mmHg [facility] pO2, i-STAT 52(L) 85 - 100 mmHg [facility] TCO2, i-STAT 20 mEq/L [facility] O2 Saturation 85 % [facility] Base Deficit 7 [facility] Temperature 36.4 C [facility] FIO2 .40 [facility] Sample Type VENOUS [facility] technical proposal writer ID [id number] Test Performed by Respiratory [facility] 05/09/2008 4:19 EST 05/09/2008 4:22 EST us Jose Alejandro Castro MD CHEMISTRY & BLOOD GAS ORDERABLE S Final Result Performing Organization Address City/State/[facility] Co de Phone Number [facility] [address] [place] [address] * (ABNORMAL) BLOOD GAS, CG4 ISTAT (05/09/2008 4:13 EST) pH, i-STAT 7.39 7.35 - 7.45 [facility] pCO2, i-STAT 30(L) 35 - 45 mmHg [facility] pO2, i-STAT 174(H) 85 - 100 mmHg [facility] TCO2, i-STAT 19 mEq/L [facility] O2 Saturation 100 % TRUE [facility] Lactate, i-STAT 1.6 mmol/L [facility] Base Deficit 6 [facility] Temperature 36.4 C [facility] FIO2 .40 [facility] Sample Type ARTERIAL [facility] technical proposal writer ID [id number] Test Performed by Respiratory [facility] 05/09/2008 4:13 EST 05/09/2008 4:22 EST us Jose Alejandro Castro MD CHEMISTRY & BLOOD GAS ORDERABLE S Final Result Performing Organization Address City/State/[facility] de Phone Number [facility] [address] [place] [address] * (ABNORMAL) GLUCOSE, GLUCOMETER (05/09/2008 4:10 EST) Pathologist [facility] Glucose, Fingerstick 112(H) 70 - 100 mg/dl [facility] Corrections Counselor ID [id number] Test Performed by Nursing Services [facility] 05/09/2008 4:10 EST 05/09/2008 23:14 EST Jose Alejandro Castro MD CHEMISTRY & BLOOD GAS ORDERABLE S Final Result Performing Organization Address [facility] de Phone Number [facility] [address] [place] [address] * (ABNORMAL) AST (05/09/2008 4:10 EST) Pathologist [facility] AST 273(H) 15 - 46 U/L [facility] Comment:Sample retested, res ult confirmed 05/09/2008 4:10 EST 05/09/2008 4:17 EST Jose Alejandro Castro MD CHEMISTRY & BLOOD GAS ORDERABLE S Final Result Performing Organization Address [facility] Phone Number [facility] [address] [place] [address] * (ABNORMAL) PTT (05/09/2008 4:10 EST) Pathologist [facility] PTT 42(H) 20 - 35 secs [facility] Comment:Therapeutic Heparin range: 60-100 seconds 05/09/2008 4:10 EST 05/09/2008 4:17 EST Jose Alejandro Castro MD HEMATOLOGY & PF4 ORDERABLES Fin al Result Performing Organization Address [facility] de Phone Number [facility] [address] [place] [address] * (ABNORMAL) PROTIME (05/09/2008 4:10 EST) Pathologist [facility] Pro Time 23.1(H) 12.0 - 15.0 secs [facility] I.N.R. 2.0(H) 0.9 - 1.1 Ratio [facility] Comment: Moderate Intensity Coumadin INR = 2.0-3.0 Adjustments in anticoagulant therapy dose should be based upon the INR and NOT the Pro Time. 05/09/2008 4:10 EST 05/09/2008 4:17 EST Jose Alejandro Castro MD HEMATOLOGY & PF4 ORDERABLES Fin al Result Performing Organization Address [facility] Co de Phone Number [facility] [address] [place] [address] * (ABNORMAL) GLUCOSE, SERUM (05/09/2008 4:10 EST) Glucose, Serum 101(H) 70 - 100 mg/dl [facility] 05/09/2008 4:10 EST 05/09/2008 4:17 EST Jose Alejandro Castro MD CHEMISTRY & BLOOD GAS ORDERABLE S Final Result Performing Organization Address [facility] Phone Number [facility] [address] [place] [address] * PHOSPHORUS (05/09/2008 4:10 EST) Phosphorus 3.1 2.7 - 4.7 mg/dl [facility] 05/09/2008 4:10 EST 05/09/2008 4:17 EST Jose Alejandro Castro MD CHEMISTRY & BLOOD GAS ORDERABLE S Final Result Performing Organization Address [facility] de Phone Number [facility] [address] [place] [address] * MAGNESIUM (05/09/2008 4:10 EST) Magnesium 1.8 1.7 - 2.8 mg/dl [facility] 05/09/2008 4:10 EST 05/09/2008 4:17 EST Jose Alejandro Castro MD CHEMISTRY & BLOOD GAS ORDERABLE S Final Result [facility] [address] [place] [address] * GGT (05/09/2008 4:10 EST) GGT 34 10 - 35 U/L [facility] 05/09/2008 4:10 EST 05/09/2008 4:17 EST Jose Alejandro Castro MD CHEMISTRY & BLOOD GAS ORDERABLE S Final Result [facility] [address] [place] [address] * CREATININE (05/09/2008 4:10 EST) Creatinine 0.80 0.6 - 1.2 mg/dl [facility] GFR, Calculated Age <18 ml/min/1.7 3m2 [facility] 05/09/2008 4:10 EST 05/09/2008 4:17 EST Jose Alejandro Castro MD CHEMISTRY & BLOOD GAS ORDERABLE S Final Result Performing Organization Address [facility] Co de Phone Number [facility] [address] [place] [address] * BUN (05/09/2008 4:10 EST) BUN 10 8 - 21 mg/dl [facility] 05/09/2008 4:10 EST 05/09/2008 4:17 EST Jose Alejandro Castro MD CHEMISTRY & BLOOD GAS ORDERABLE S Final Result [facility] [address] [place] [address] * TOTAL & DIRECT BILIRUBIN (05/09/2008 4:10 EST) Conjugated Bilirubin 0.0 0.0 - 0.3 mg/dl [facility] Unconjugated Bilirubin 0.6 0.1 - 1.1 mg/dl [facility] Bilirubin, Total <0.5 0.0 - 1.4 mg/dl [facility] 05/09/2008 4:10 EST 05/09/2008 4:17 EST us Jose Alejandro Castro MD CHEMISTRY & BLOOD GAS ORDERABLE S Final Result Performing Organization Address [facility] Phone Number [facility] [address] [place] [address] * (ABNORMAL) ALT (05/09/2008 4:10 EST) ALT 89(H) 0 - 45 U/L [facility] 05/09/2008 4:10 EST 05/09/2008 4:17 EST Jose Alejandro Castro MD CHEMISTRY & BLOOD GAS ORDERABLE S Final Result Performing Organization Address [facility] Phone Number [facility] [address] [place] [address] * (ABNORMAL) ALBUMIN (05/09/2008 4:10 EST) Albumin 2.7(L) 3.0 - 5.5 g/dl [facility] 05/09/2008 4:10 EST 05/09/2008 4:17 EST us Jose Alejandro Castro MD CHEMISTRY & BLOOD GAS ORDERABLE S Final Result Performing Organization Address [facility] Phone Number [facility] [address] [place] [address] * (ABNORMAL) ELECTROLYTES (05/09/2008 4:10 EST) Sodium 135(L) 136 - 145 mEq/L [facility] Potassium 5.3(H) 3.5 - 5.0 mEq/L [facility] Chloride 107 96 - 110 mEq/L [facility] CO2 22(L) 24 - 32 mEq/L [facility] 05/09/2008 4:10 EST 05/09/2008 4:17 EST Jose Alejandro Castro MD CHEMISTRY & BLOOD GAS ORDERABLE S Final Result Performing Organization Address [facility] Co de Phone Number [facility] [address] [place] [address] * TROPONIN I (05/09/2008 4:10 EST) Troponin I pre 2012 Sample quantity insufficient for testing. ng/ml [facility] 05/09/2008 4:10 EST 05/09/2008 4:17 EST Jose Alejandro Castro MD CHEMISTRY & BLOOD GAS ORDERABLE S Final Result Performing Organization Address [facility] de Phone Number [facility] [address] [place] [address] * CK MB WITH TOTAL CK (05/09/2008 4:10 EST) Pathologist [facility] CK Sample quantity insufficient for testing. U/L [facility] MB Sample quantity insufficient for testing. 0 - 5.0 ng/ml [facility] CK-MB Index Sample quantity insufficient for testing. 0 - 2.5 [facility] 05/09/2008 4:10 EST 05/09/2008 4:17 EST Jose Alejandro Castro MD CHEMISTRY & BLOOD GAS ORDERABLE S Final Result Performing Organization Address [facility] de Phone Number [facility] [address] [place] [address] * (ABNORMAL) HEMAGRAM AND DIFFERENTIAL (05/09/2008 4:10 [...] LAB ABS Metamyelocytes 0.83 K/cmm [facility] RBC Morphology 1+ Anisocytosis 1+ Poikilocytosis 1+ Target cells [facility] Type of Diff: Manual [facility] 05/09/2008 4:10 EST 05/09/2008 4:17 EST Jose Alejandro Castro MD PACKAGES & DNA PROBE ORDERABLES Final Result Performing Organization Address City/[facility] Co de Phone Number [facility] [address] [place] [id number] * CALCIUM IONIZED (05/09/2008 4:10 EST) [facility] Ionized Calcium Note Sample sent to Lab. [facility] 05/09/2008 4:10 EST 05/09/2008 4:17 EST Jose Alejandro Castro MD CHEMISTRY & BLOOD GAS ORDERABLE S Final Result Performing Organization Address City/[facility]/ZIP Co de Phone Number [facility] [address] [place] [address] * (ABNORMAL) GLUCOSE, GLUCOMETER (05/09/2008 3:03 EST) [facility] Glucose, Fingerstick 219(H) 70 - 100 mg/dl [facility] Corrections Counselor ID [id number] Test Performed by Nursing Services [facility] 05/09/2008 3:03 EST 05/09/2008 23:14 EST Jose Alejandro Castro MD CHEMISTRY & BLOOD GAS ORDERABLE S Final Result Performing Organization Address [facility] Phone Number [facility] [address] [place] [address] * (ABNORMAL) GLUCOSE, GLUCOMETER (05/09/2008 2:04 EST) Glucose, Fingerstick 259(H) 70 - 100 mg/dl [facility] Corrections Counselor ID [id number] Test Performed by Nursing Services [facility] 05/09/2008 2:04 EST 05/09/2008 23:14 EST Jose Alejandro Castro MD CHEMISTRY & BLOOD GAS ORDERABLE S Final Result Performing Organization Address [facility] Phone Number [facility] [address] [place] [address] * (ABNORMAL) GLUCOSE, GLUCOMETER (05/09/2008 1:11 EST) Glucose, Fingerstick 258(H) 70 - 100 mg/dl [facility] Corrections Counselor ID [id number] Test Performed by Nursing Services [facility] 05/09/2008 1:11 EST 05/09/2008 23:14 EST Jose Alejandro Castro MD CHEMISTRY & BLOOD GAS ORDERABLE S Final Result Performing Organization Address [facility] Phone Number [facility] [address] [place] [address] * (ABNORMAL) BLOOD GAS, G3 ISTAT (05/09/2008 [...] [facility] Sample Type ARTERIAL [facility] technical proposal writer ID [id number] Test Performed by Respiratory [facility] 05/09/2008 0:29 EST 05/09/2008 4:22 EST Jose Alejandro Castro MD CHEMISTRY & BLOOD GAS ORDERABLE S Final Result Performing Organization Address [facility] de Phone Number [facility] [address] [place] [address] * (ABNORMAL) CALCIUM, IONIZED (05/09/2008 0:28 EST) Calcium, Ionized 1.08(L) 1.12 - 1.32 mmol/L [facility] technical proposal writer [place] [id number] Test performed by Chemistry [facility] 05/09/2008 0:28 EST 05/09/2008 0:31 EST Jose Alejandro Castro MD CHEMISTRY & BLOOD GAS ORDERABLE S Final Result Performing Organization Address [facility] de Phone Number [facility] [address] [place] [address] * (ABNORMAL) BLOOD GAS, CG4 ISTAT (05/09/2008 [...] [facility] Sample Type ARTERIAL [facility]IS[facility] technical proposal writer ID [id number] Test Performed by Respiratory [facility] 05/09/2008 0:25 EST 05/09/2008 4:22 EST Jose Alejandro Castro MD CHEMISTRY & BLOOD GAS ORDERABLE S Final Result Performing Organization Address [facility]/State/ZIP Co de Phone Number [facility] [address] [place] [address] * (ABNORMAL) GLUCOSE, GLUCOMETER (05/09/2008 0:17 EST) Glucose, Fingerstick 270(H) 70 - 100 mg/dl [facility] Corrections Counselor ID [id number] Test Performed by Nursing Services [facility] 05/09/2008 0:17 EST 05/09/2008 23:14 EST Jose Alejandro Castro MD CHEMISTRY & BLOOD GAS ORDERABLE S Final Result Performing Organization Address [facility] Co de Phone Number [facility] [address] [place] [address] * (ABNORMAL) GLUCOSE, SERUM (05/09/2008 0:10 EST) Glucose, Serum 243(H) 70 - 100 mg/dl [facility] 05/09/2008 0:10 EST 05/09/2008 0:22 EST Jose Alejandro Castro MD CHEMISTRY & BLOOD GAS ORDERABLE S Final Result Performing Organization Address [facility] Co de Phone Number [facility] [address] [place] [address] * PHOSPHORUS (05/09/2008 0:10 EST) Phosphorus 3.0 2.7 - 4.7 mg/dl [facility] 05/09/2008 0:10 EST 05/09/2008 0:22 EST Jose Alejandro Castro MD CHEMISTRY & BLOOD GAS ORDERABLE S Final Result Performing Organization Address [facility] Co de Phone Number [facility] [address] [place] [address] * (ABNORMAL) MAGNESIUM (05/09/2008 0:10 EST) Magnesium 1.5(L) 1.7 - 2.8 mg/dl [facility] 05/09/2008 0:10 EST 05/09/2008 0:22 EST Jose Alejandro Castro MD CHEMISTRY & BLOOD GAS ORDERABLE S Final Result Performing Organization Address [facility] de Phone Number [facility] [address] [place] [address] * (ABNORMAL) ELECTROLYTES (05/09/2008 0:10 EST) Sodium 138 136 - 145 mEq/L [facility] Potassium 5.6(H) 3.5 - 5.0 mEq/L [facility] Chloride 109 96 - 110 mEq/L [facility] CO2 19(L) 24 - 32 mEq/L [facility] 05/09/2008 0:10 EST 05/09/2008 0:22 EST Jose Alejandro Castro MD CHEMISTRY & BLOOD GAS ORDERABLE S Final Result Performing Organization Address [facility] de Phone Number [facility] [address] [place] [address] * CALCIUM IONIZED (05/09/2008 0:10 EST) Pathologist [facility] Ionized Calcium Note Sample sent to Lab. [facility] 05/09/2008 0:10 EST 05/09/2008 0:22 EST Jose Alejandro Castro MD CHEMISTRY & BLOOD GAS ORDERABLE S Final Result Performing Organization Address [facility] de Phone Number [facility] [address] [place] [address] * (ABNORMAL) GLUCOSE, GLUCOMETER (05/08/2008 22:59 EST) Glucose, Fingerstick 333(H) 70 - 100 mg/dl [facility] Corrections Counselor ID [id number] Test Performed by Nursing Services [facility] 05/08/2008 22:5 9 EST 05/08/2008 23:11 EST Jose Alejandro Castro MD CHEMISTRY & BLOOD GAS ORDERABLE S Final Result Performing Organization Address [facility] Co de Phone Number [facility] [address] [place] [address] * (ABNORMAL) GLUCOSE, GLUCOMETER (05/08/2008 21:07 EST) Glucose, Fingerstick 345(H) 70 - 100 mg/dl [facility] Corrections Counselor ID [id number] Test Performed by Nursing Services [facility] 05/08/2008 21:0 7 EST 05/08/2008 21:20 EST Jose Alejandro Castro MD CHEMISTRY & BLOOD GAS ORDERABLE S Final Result Performing Organization Address [facility] de Phone Number [facility] [address] [place] [address] * CALCIUM, IONIZED (05/08/2008 20:17 EST) Calcium, Ionized 1.23 1.12 - 1.32 mmol/L [facility] technical proposal writer [place] [id number] Test performed by Chemistry [facility] 05/08/2008 20:1 7 EST 05/08/2008 20:19 EST Jose Alejandro Castro MD CHEMISTRY & BLOOD GAS ORDERABLE S Final Result Performing Organization Address [facility] de Phone Number [facility] [address] [place] [address] * (ABNORMAL) BLOOD GAS, G3 ISTAT (05/08/2008 20:08 EST) pH, i-STAT 7.25(L) 7.35 - 7.45 [facility] pCO2, i-STAT 33(L) 35 - 45 mmHg [facility] pO2, i-STAT 47(L) 85 - 100 mmHg [facility] TCO2, i-STAT 16 mEq/L [facility] O2 Saturation 78 % [facility] Base Deficit 12 [facility] Temperature 36.4 C [facility] FIO2 .40 [facility] Sample Type VENOUS [facility]IS[facility] technical proposal writer ID [id number] Test Performed by Respiratory [facility] 05/08/2008 20:0 8 EST 05/08/2008 20:15 EST Jose Alejandro Castro MD CHEMISTRY & BLOOD GAS ORDERABLE S Final Result Performing Organization Address [facility] de Phone Number [facility] [address] [place] [address] * (ABNORMAL) GLUCOSE, GLUCOMETER (05/08/2008 20:06 EST) Glucose, Fingerstick 363(H) 70 - 100 mg/dl [facility] Corrections Counselor ID [id number] Test Performed by Nursing Services [facility] 05/08/2008 20:0 6 EST 05/08/2008 21:19 EST Jose Alejandro Castro MD CHEMISTRY & BLOOD GAS ORDERABLE S Final Result Performing Organization Address [facility] Phone Number [facility] [address] [place] [address] * VANCOMYCIN, RANDOM (05/08/2008 20:05 EST) Vancomycin Random 10.7 ug/ml [facility] Comment: Reference Range: Trough: 5.0-20.0 Peak: ??30.0-40.0 05/08/2008 20:0 5 EST 05/08/2008 20:11 EST Jose Alejandro Castro MD CHEMISTRY & BLOOD GAS ORDERABLE S Final Result Performing Organization Address [facility] de Phone Number [facility] [address] [place] [address] * (ABNORMAL) GLUCOSE, SERUM (05/08/2008 20:05 EST) Glucose, Serum 362(H) 70 - 100 mg/dl [facility] 05/08/2008 20:0 5 EST 05/08/2008 20:11 EST Jose Alejandro Castro MD CHEMISTRY & BLOOD GAS ORDERABLE S Final Result [facility] [address] [place] [address] * PHOSPHORUS (05/08/2008 20:05 EST) Phosphorus 2.8 2.7 - 4.7 mg/dl [facility] 05/08/2008 20:0 5 EST 05/08/2008 20:11 EST Jose Alejandro Castro MD CHEMISTRY & BLOOD GAS ORDERABLE S Final Result Performing Organization Address City/[facility]/ZIP Co de Phone Number [facility] [address] [place] [address] * (ABNORMAL) MAGNESIUM (05/08/2008 20:05 EST) Magnesium 1.5(L) 1.7 - 2.8 mg/dl [facility] 05/08/2008 20:0 5 EST 05/08/2008 20:11 EST Jose Alejandro Castro MD CHEMISTRY & BLOOD GAS ORDERABLE S Final Result Performing Organization Address [facility]/ZIP Co de Phone Number [facility] [address] [place] [address] * CREATININE (05/08/2008 20:05 EST) Creatinine 1.10 0.6 - 1.2 mg/dl [facility] GFR, Calculated Age <18 ml/min/1.7 3m2 [facility] 05/08/2008 20:0 5 EST 05/08/2008 20:11 EST Jose Alejandro Castro MD CHEMISTRY & BLOOD GAS ORDERABLE S Final Result [facility] [address] [place] [address] * BUN (05/08/2008 20:05 EST) BUN 14 8 - 21 mg/dl [facility] 05/08/2008 20:0 5 EST 05/08/2008 20:11 EST Jose Alejandro Castro MD CHEMISTRY & BLOOD GAS ORDERABLE S Final Result Performing Organization Address [facility] de Phone Number [facility] [address] [place] [address] * (ABNORMAL) ELECTROLYTES (05/08/2008 20:05 EST) Pathologist [facility] Sodium 142 136 - 145 mEq/L [facility] Potassium 4.7 3.5 - 5.0 mEq/L [facility] Chloride 111(H) 96 - 110 mEq/L [facility] CO2 17(L) 24 - 32 mEq/L [facility] 05/08/2008 20:0 5 EST 05/08/2008 20:11 EST Jose Alejandro Castro MD CHEMISTRY & BLOOD GAS ORDERABLE S Final Result Performing Organization Address City/[facility] de Phone Number [facility] [address] [place] [address] * (ABNORMAL) HEMAGRAM (05/08/2008 20:05 EST) WBC 51.68(HH) 4.6 - 11.2 K/cmm [facility] RBC 4.32(L) 4.50 - 5.30 M/cmm [facility] Hemoglobin 11.5(L) 13.0 - 16.0 gm/dl [facility] Comment:HGB may be effected by elevated WBC HCT 33.8(L) 37.0 - 49.0 % [facility] MCV 78 78 - 98 fl [facility] MCH 26.5 pg [facility] MCHC 34.0 gm/dl [facility] PLT 204 156 - 312 K/cmm [facility] RDW-CV 17.2 % [facility] 05/08/2008 20:0 5 EST 05/08/2008 20:11 EST Jose Alejandro Castro MD HEMATOLOGY & PF4 ORDERABLES Fin al Result [facility] [address] [place] [address] * CALCIUM IONIZED (05/08/2008 20:05 EST) Ionized Calcium Note Sample sent to Lab. [facility] 05/08/2008 20:0 5 EST 05/08/2008 20:11 EST Jose Alejandro Castro MD CHEMISTRY & BLOOD GAS ORDERABLE S Final Result Performing Organization Address City/[facility]/ZIP Co de Phone Number [facility] [address] [place] [address] * (ABNORMAL) BLOOD GAS, CG4 ISTAT (05/08/2008 [...] [facility] Sample Type ARTERIAL [facility]IS[facility] technical proposal writer ID [id number] Test Performed by Respiratory [facility] 05/08/2008 20:0 2 EST 05/08/2008 20:15 EST Jose Alejandro Castro MD CHEMISTRY & BLOOD GAS ORDERABLE S Final Result Performing Organization Address City/[facility]/ZIP Co de Phone Number [facility] [address] [place] [address] * MRSA MOLECULAR DETECTION (05/08/2008 20:00 EST) Specimen Description Nares Specimen submitted on a swab [facility] Result NEGATIVE for Methicillin Resistant Staphylococcus aureus DNA by PCR. [facility] Report Status Final 05/09/2008 [facility] 05/08/2008 20:0 0 EST 05/08/2008 20:44 EST us Jose Alejandro Castro MD MICROBIOLOGY - GENERAL ORDERABL ES Final Result Performing Organization Address [facility] Phone Number [facility] [address] [place] [address] * POTASSIUM (05/08/2008 19:00 EST) Potassium 4.5 3.5 - 5.0 mEq/L [facility] 05/08/2008 19:0 0 EST 05/08/2008 19:03 EST us Jose Alejandro Castro MD CHEMISTRY & BLOOD GAS ORDERABLE S Final Result Performing Organization Address [facility] Phone Number [facility] [address] [place] [address] * (ABNORMAL) GLUCOSE, GLUCOMETER (05/08/2008 18:13 EST) Glucose, Fingerstick 422(H) 70 - 100 mg/dl [facility] Corrections Counselor ID [id number] Test Performed by Nursing Services [facility] 05/08/2008 18:1 3 EST 05/08/2008 21:19 EST us Jose Alejandro Castro MD CHEMISTRY & BLOOD GAS ORDERABLE S Final Result Performing Organization Address [facility] Phone Number [facility] [address] [place] [address] * (ABNORMAL) CALCIUM, IONIZED (05/08/2008 16:31 EST) Calcium, Ionized 1.37(H) 1.12 - 1.32 mmol/L [facility] technical proposal writer [place] [id number] Test performed by Chemistry [facility] 05/08/2008 16:3 1 EST 05/08/2008 16:35 EST us Jose Alejandro Castro MD CHEMISTRY & BLOOD GAS ORDERABLE S Final Result Performing Organization Address [facility]/ZIP Co de Phone Number [facility] [address] [place] [address] * (ABNORMAL) GLUCOSE, SERUM (05/08/2008 16:27 EST) Glucose, Serum 456(H) 70 - 100 mg/dl [facility] 05/08/2008 16:2 7 EST 05/08/2008 16:27 EST Jose Alejandro Castro MD CHEMISTRY & BLOOD GAS ORDERABLE S Final Result Performing Organization Address [facility] Co de Phone Number [facility] [address] [place] [address] * (ABNORMAL) PHOSPHORUS (05/08/2008 16:27 EST) Phosphorus 1.5(L) 2.7 - 4.7 mg/dl [facility] 05/08/2008 16:2 7 EST 05/08/2008 16:27 EST Jose Alejandro Castro MD CHEMISTRY & BLOOD GAS ORDERABLE S Final Result Performing Organization Address [facility] de Phone Number [facility] [address] [place] [address] * MAGNESIUM (05/08/2008 16:27 EST) Magnesium 1.8 1.7 - 2.8 mg/dl [facility] 05/08/2008 16:2 7 EST 05/08/2008 16:27 EST Jose Alejandro Castro MD CHEMISTRY & BLOOD GAS ORDERABLE S Final Result Performing Organization Address [facility] Co de Phone Number [facility] [address] [place] [address] * (ABNORMAL) CREATININE (05/08/2008 16:27 EST) Creatinine 1.40(H) 0.6 - 1.2 mg/dl [facility] Comment:Sample retested, res ult confirmed GFR, Calculated Age <18 ml/min/1.7 3m2 [facility] 05/08/2008 16:2 7 EST 05/08/2008 16:27 EST Jose Alejandro Castro MD CHEMISTRY & BLOOD GAS ORDERABLE S Final Result Performing Organization Address [facility] Co de Phone Number [facility] [address] [place] [address] * BUN (05/08/2008 16:27 EST) BUN 16 8 - 21 mg/dl [facility] 05/08/2008 16:2 7 EST 05/08/2008 16:27 EST Jose Alejandro Castro MD CHEMISTRY & BLOOD GAS ORDERABLE S Final Result Performing Organization Address [facility] de Phone Number [facility] [address] [place] [address] * (ABNORMAL) ELECTROLYTES (05/08/2008 16:27 EST) Pathologist [facility] Sodium 142 136 - 145 mEq/L [facility] Potassium 3.0(L) 3.5 - 5.0 mEq/L [facility] Chloride 111(H) 96 - 110 mEq/L [facility] CO2 14(L) 24 - 32 mEq/L [facility] 05/08/2008 16:2 7 EST 05/08/2008 16:27 EST Jose Alejandro Castro MD CHEMISTRY & BLOOD GAS ORDERABLE S Final Result Performing Organization Address City/[facility] Co de Phone Number [facility] [address] [place] [address] * CALCIUM IONIZED (05/08/2008 16:27 EST) Ionized Calcium Note Sample sent to Lab. [facility] 05/08/2008 16:2 7 EST 05/08/2008 16:27 EST Jose Alejandro Castro MD CHEMISTRY & BLOOD GAS ORDERABLE S Final Result Performing Organization Address [facility] Co de Phone Number [facility] [address] [place] [address] * (ABNORMAL) BLOOD GAS, G3 ISTAT (05/08/2008 16:22 EST) pH, i-STAT 7.16(L) 7.35 - 7.45 [facility] pCO2, i-STAT 38 35 - 45 mmHg [facility] pO2, i-STAT 54(L) 85 - 100 mmHg [facility] TCO2, i-STAT 15 mEq/L [facility] O2 Saturation 82 % [facility] Base Deficit 15 [facility] Temperature 35.6 C [facility] FIO2 .40 [facility] Sample Type VENOUS [facility] technical proposal writer ID [id number] Test Performed by Respiratory [facility] 05/08/2008 16:2 2 EST 05/08/2008 16:30 EST Jose Alejandro Castro MD CHEMISTRY & BLOOD GAS ORDERABLE S Final Result Performing Organization Address [facility] Co de Phone Number [facility] [address] [place] [address] * (ABNORMAL) BLOOD GAS, CG4 ISTAT (05/08/2008 16:14 EST) pH, i-STAT 7.17(L) 7.35 - 7.45 [facility] pCO2, i-STAT 31(L) 35 - 45 mmHg [facility] pO2, i-STAT 119(H) 85 - 100 mmHg [facility] TCO2, i-STAT 13 mEq/L [facility] O2 Saturation 98 % [facility] Lactate, i-STAT 7.2 mmol/L [facility] Base Deficit 16 [facility] Temperature 35.6 C [facility] FIO2 .40 [facility] Sample Type ARTERIAL [facility] technical proposal writer ID [id number] Test Performed by Respiratory [facility] 05/08/2008 16:1 4 EST 05/08/2008 16:30 EST Jose Alejandro Castro MD CHEMISTRY & BLOOD GAS ORDERABLE S Final Result Performing Organization Address City/[facility] Co de Phone Number [facility] [address] [place] [address] * (ABNORMAL) GLUCOSE, GLUCOMETER (05/08/2008 16:11 EST) Glucose, Fingerstick 456(H) 70 - 100 mg/dl [facility] Corrections Counselor ID [id number] Test Performed by Nursing Services [facility] 05/08/2008 16:1 1 EST 05/08/2008 21:19 EST Jose Alejandro Castro MD CHEMISTRY & BLOOD GAS ORDERABLE S Final Result Performing Organization Address [facility] de Phone Number [facility] [address] [place] [address] * PORTABLE CHEST 1 VIEW (05/08/2008 14:48 [...] the findings. Jessika Rivera MD IMG DIAGNOSTIC IMAGING ORDER LYNDSEY Final Result * (ABNORMAL) CALCIUM, IONIZED (05/08/2008 13:04 EST) Calcium, Ionized 1.42(H) 1.12 - 1.32 mmol/L [facility] technical proposal [place] [id number] Test performed by Chemistry [facility] 05/08/2008 13:0 4 EST 05/08/2008 13:08 EST Jose Alejandro Castro MD CHEMISTRY & BLOOD GAS ORDERABLE S Final Result [facility] [address] [place] [address] * (ABNORMAL) PHOSPHORUS (05/08/2008 12:57 EST) Phosphorus <1.0(L) 2.7 - 4.7 mg/dl [facility] Comment:Sample retested, res ult confirmed 05/08/2008 12:5 7 EST 05/08/2008 12:57 EST Jose Alejandro Castro MD CHEMISTRY & BLOOD GAS ORDERABLE S Final Result Performing Organization Address City/[facility]/ZIP Co de Phone Number [facility] [address] [place] [address] * (ABNORMAL) HEMAGRAM AND DIFFERENTIAL (05/08/2008 12:57 [...] LAB PLT 141(L) 156 - 312 K/cmm [facility] RDW-CV 17.5 % [facility] Neutrophils 65.0 % [facility] % Bands 27.0 % [facility] Lymphocytes 3.0 % [facility] Monocytes 1.0 % [facility] % Metamyelocytes 4.0 % [facility] ABS Neutrophils 13.02 K/cmm [facility] ABS Bands 5.41 K/cmm [facility] ABS Lymphs 0.60 K/cmm [facility] ABS Monocytes 0.20 K/cmm [facility] ABS Metamyelocytes 0.80 K/cmm [facility] RBC Morphology 1+ Poikilocytosis 1+ Anisocytosis 1+ Microcytes 1+ Ovalocytes [facility] Comment Rev'd by Pathologist [facility]IS[facility] G[facility] Type of Diff: Manual [facility] 05/08/2008 12:5 7 EST 05/08/2008 12:57 EST Jose Alejandro Castro MD PACKAGES & DNA PROBE ORDERABLES Final Result [facility] [address] [place] [address] * (ABNORMAL) TOTAL PROTEIN (05/08/2008 12:57 EST) Pathologist [facility] Total Protein 5.0(L) 6.3 - 8.6 g/dl [facility] 05/08/2008 12:5 7 EST 05/08/2008 12:57 EST Jose Alejandro Castro MD CHEMISTRY & BLOOD GAS ORDERABLE S Final Result Performing Organization Address [facility] Co de Phone Number [facility] [address] [place] [address] * (ABNORMAL) GLUCOSE, SERUM (05/08/2008 12:57 EST) Pathologist [facility] Glucose, Serum 488(H) 70 - 100 mg/dl [facility] 05/08/2008 12:5 7 EST 05/08/2008 12:57 EST Jose Alejandro Castro MD CHEMISTRY & BLOOD GAS ORDERABLE S Final Result Performing Organization Address [facility] de Phone Number [facility] [address] [place] [address] * (ABNORMAL) MAGNESIUM (05/08/2008 12:57 EST) Pathologist [facility] Magnesium 1.4(L) 1.7 - 2.8 mg/dl [facility] 05/08/2008 12:5 7 EST 05/08/2008 12:57 EST us Jose Alejandro Castro MD CHEMISTRY & BLOOD GAS ORDERABLE S Final Result Performing Organization Address [facility] Co de Phone Number [facility] [address] [place] [address] * TOTAL & DIRECT BILIRUBIN (05/08/2008 12:57 EST) Pathologist [facility] Conjugated Bilirubin 0.0 0.0 - 0.3 mg/dl [facility] Unconjugated Bilirubin 0.3 0.1 - 1.1 mg/dl [facility] Bilirubin, Total <0.5 0.0 - 1.4 mg/dl [facility] 05/08/2008 12:5 7 EST 05/08/2008 12:57 EST Jose Alejandro Castro MD CHEMISTRY & BLOOD GAS ORDERABLE S Final Result Performing Organization Address [facility] Co de Phone Number [facility] [address] [place] [address] * (ABNORMAL) ALBUMIN (05/08/2008 12:57 EST) Albumin 2.7(L) 3.0 - 5.5 g/dl [facility] 05/08/2008 12:5 7 EST 05/08/2008 12:57 EST Jose Alejandro Castro MD CHEMISTRY & BLOOD GAS ORDERABLE S Final Result Performing Organization Address [facility] de Phone Number [facility] [address] [place] [address] * (ABNORMAL) ELECTROLYTES (05/08/2008 12:57 EST) Sodium 141 136 - 145 mEq/L [facility] Potassium 2.6(LL) 3.5 - 5.0 mEq/L [facility] Comment:Sample retested, res ult confirmed Chloride 110 96 - 110 mEq/L [facility] CO2 15(L) 24 - 32 mEq/L [facility] 05/08/2008 12:5 7 EST 05/08/2008 12:57 EST Jose Alejandro Castro MD CHEMISTRY & BLOOD GAS ORDERABLE S Final Result Performing Organization Address [facility] de Phone Number [facility] [address] [place] [address] * CALCIUM IONIZED (05/08/2008 12:57 EST) Ionized Calcium Note Sample sent to Lab. [facility] 05/08/2008 12:5 7 EST 05/08/2008 12:57 EST us Jose Alejandro Castro MD CHEMISTRY & BLOOD GAS ORDERABLE S Final Result [facility] [address] [place] [address] * (ABNORMAL) BLOOD GAS, G3 ISTAT (05/08/2008 12:52 EST) pH, i-STAT 7.13(L) 7.35 - 7.45 [facility] pCO2, i-STAT 36 35 - 45 mmHg [facility] pO2, i-STAT 58(L) 85 - 100 mmHg [facility] TCO2, i-STAT 13 mEq/L [facility] O2 Saturation 82 % [facility]MARSHA [facility] Base Deficit 16 [facility] Temperature 36.2 C [facility] Sample Type VENOUS [facility] technical proposal writer ID [id number] Test Performed by Respiratory [facility] 05/08/2008 12:5 2 EST 05/08/2008 12:56 EST us Jose Alejandro Castro MD CHEMISTRY & BLOOD GAS ORDERABLE S Final Result [facility] [address] [place] [address] * (ABNORMAL) BLOOD GAS, CG4 ISTAT (05/08/2008 12:46 EST) pH, i-STAT 7.20(L) 7.35 - 7.45 [facility] pCO2, i-STAT 28(L) 35 - 45 mmHg [facility] pO2, i-STAT 101(H) 85 - 100 mmHg [facility] TCO2, i-STAT 12 mEq/L [facility] O2 Saturation 97 % TRUE STEVENS [facility] Lactate, i-STAT 6.9 mmol/L [facility] Base Deficit 16 [facility] Temperature 36.2 C [facility] Sample Type ARTERIAL [facility] technical proposal writer ID [id number] Test Performed by Respiratory [facility] 05/08/2008 12:4 6 EST 05/08/2008 12:56 EST Jose Alejandro Castro MD CHEMISTRY & BLOOD GAS ORDERABLE S Final Result Performing Organization Address [facility] de Phone Number [facility] [address] [place] [address] * BACTERIAL CULTURE, BLOOD (05/08/2008 12:00 EST) Specimen Description Blood Arterial Line Pediatric bottle received Volume of blood collected may not be adequate for detection of bacteremia/se pticemia. [facility] Result No growth [facility] Report Status Final [id number] [facility] 05/08/2008 12:0 0 EST 05/08/2008 12:00 EST Jose Alejandro Castro MD MICROBIOLOGY - GENERAL ORDERABL ES Final Result Performing Organization Address [facility] de Phone Number [facility] [address] [place] [address] * BACTERIAL CULTURE, BLOOD (05/08/2008 11:59 EST) Specimen Description Blood Venous specimen. [facility] Result No growth [facility] Report Status Final [id number] [facility] 05/08/2008 11:5 9 EST 05/08/2008 11:59 EST Jose Alejandro Castro MD MICROBIOLOGY - GENERAL ORDERABL ES Final Result Performing Organization Address [facility] de Phone Number [facility] [address] [place] [address] * ECHOCARDIOGRAM (05/08/2008 10:55 EST) Anatomical Region Laterality Modality Other 05/08/2008 10:5 5 EST Narrative 11/21/2008 8:55 EDT ? ventricular dysfunction Site Location: Date of Appt: Thursday, May 08, 2008, 10:55 AM Pediatric Echocardiogram Report Demographics and Visit Data: : 1990. ??Age: 17y/10m/23d. ??BSA (m 2): 1.78. Weight (kg): 75. ??Patient location: [facility]. ??Weight Centile: 67.41. Person requesting test: JOSE ALEJANDRO CASTRO MD ??Reason for test: ? ventricular dysfunction. Referral [...] Midwall Diastolic Dimension ? 6.18 ? cm [place]'s Name: YASMINE MEJIA MD Date/time of reading: Fri, May 09 2008 - 11:30:43 AM Report created at 11:31:25 AM on Friday, May 09, 2008 Procedure Note Yasmine Mejia MD - 11/21/2008 ? ventricular dysfunction Site Location: Date of Appt: Thursday, May 08, 2008, 10:55 AM Pediatric Echocardiogram Report Demographics and Visit Data: : 1990. Age: 17y/10m/23d. BSA (m 2): 1.78. Weight (kg): 75. Patient location: [place] [address]. Weight Centile: 67.41. Person requesting test: TONIE PANG,JOSE ALEJANDRO Suarez Reason for test: ?ventricular dysfunction. Referral diagnosis: [...] 2 LV Midwall Diastolic Dimension 6.18 cm [place]'s Name: ROBERTO PANG,YASMINE LEIVA Date/time of reading: May 09 2008 - 11:30:43 AM Report created at 11:31:25 AM on Friday, May 09, 2008 Jose Alejandro Castro MD CARDIAC ECHO ORDERABLES Final R esult * BACTERIAL CULTURE/SMEAR, RESPIRATORY (05/08/2008 10:20 EST) Specimen Description Bronchoalveolar Lavage Blind [facility] Gram Smear Result Polys present Alveolar macrophages present present Gram positive cocci present Gram negative bacilli present Results reviewed by supervisory staff [facility] Result 10,000 to 100,000 CFU/ml STAPHYLOCOCCUS COAGULASE POSITIVE (STAPHYLOCOCCUS AUREUS) Less than 10,000 CFU/ml Gram positive cocci [facility] Report Status Final 05/10/2008 [facility] [...] Susceptible Jose Alejandro Castro MD MICROBIOLOGY - GENERAL ORDERABL ES Final Result Performing Organization Address [facility] de Phone Number [facility] [address] [place] [address] * (ABNORMAL) BLOOD GAS, G3 ISTAT (05/08/2008 8:45 EST) pH, i-STAT 7.16(L) 7.35 - 7.45 [facility] pCO2, i-STAT 43 35 - 45 mmHg [facility] pO2, i-STAT 66(L) 85 - 100 mmHg [facility] TCO2, i-STAT 16 mEq/L [facility] O2 Saturation 86 % [facility] Base Deficit 13 [facility]SHAE [facility] Sample Type NOT GIVEN [facility] technical proposal writer ID [id number] Test Performed by Respiratory [facility] 05/08/2008 8:45 EST 05/08/2008 8:51 EST Jose Alejandro Castro MD CHEMISTRY & BLOOD GAS ORDERABLE S Final Result Performing Organization Address [facility] de Phone Number [facility] [address] [place] [address] * (ABNORMAL) BLOOD GAS, CG4 ISTAT (05/08/2008 8:35 EST) pH, i-STAT 7.22(L) 7.35 - 7.45 [facility] pCO2, i-STAT 32(L) 35 - 45 mmHg [facility] pO2, i-STAT 114(H) 85 - 100 mmHg [facility] TCO2, i-STAT 14 mEq/L [facility] O2 Saturation 98 % TRUE [facility] Lactate, i-STAT 4.8 mmol/L [facility]I ALMEIDA [facility] Base Deficit 14 FRANKIE Dalton [facility] Temperature 35.4 C [facility] Sample Type ARTERIAL [facility] ALLEN technical proposal writer ID [id number] Test Performed by Respiratory [facility] 05/08/2008 8:35 EST 05/08/2008 8:51 EST us Jose Alejandro Castro MD CHEMISTRY & BLOOD GAS ORDERABLE S Final Result [facility] [address] [place] [address] * ABDOMEN AP 1 VIEW (05/08/2008 8:35 [...] endotracheal tube and vascular catheters described above. us Zain Benavides MD IMG DIAGNOSTIC IMAGING ORDER LYNDSEY Final Result * PORTABLE CHEST 1 VIEW (05/08/2008 8:35 [...] endotracheal tube and vascular catheters described above. us Zain Benavides MD IMG DIAGNOSTIC IMAGING ORDER LYNDSEY Final Result * (ABNORMAL) BLOOD GAS, CG4 ISTAT (05/08/2008 8:28 EST) pH, i-STAT 7.22(L) 7.35 - 7.45 [facility] pCO2, i-STAT 32(L) 35 - 45 mmHg [facility] pO2, i-STAT Results not available 85 - 100 mmHg [facility] TCO2, i-STAT 14 mEq/L [facility] O2 Saturation Results not available % [facility] Lactate, i-STAT Results not available mmol/L [facility] Base Deficit 14 F[facility]TC[facility] R [facility] Temperature 35.4 C [facility] Sample Type ARTERIAL [facility] technical proposal writer ID [id number] Test Performed by Respiratory [facility] 05/08/2008 8:28 EST 05/08/2008 8:51 EST us Jose Alejandro Castro MD CHEMISTRY & BLOOD GAS ORDERABLE S Final Result [facility] [address] [place] [address] * (ABNORMAL) GLUCOSE, GLUCOMETER (05/08/2008 8:24 EST) Glucose, Fingerstick 173(H) 70 - 100 mg/dl [facility] Corrections Counselor ID [id number] Test Performed by Nursing Services [facility] 05/08/2008 8:24 EST 05/08/2008 21:19 EST us Jose Alejandro Castro MD CHEMISTRY & BLOOD GAS ORDERABLE S Final Result Performing Organization Address [facility] Co de Phone Number [facility] [address] [place] [address] * (ABNORMAL) BLOOD GAS, CG4 ISTAT (05/08/2008 6:56 EST) pH, i-STAT 7.12(L) 7.35 - 7.45 [facility] pCO2, i-STAT 50(H) 35 - 45 mmHg [facility] pO2, i-STAT 50(L) 85 - 100 mmHg [facility] TCO2, i-STAT 18 mEq/L [facility] O2 Saturation 76 % TRUE [facility] Lactate, i-STAT 4.7 mmol/L [facility] Base Deficit 13 FLENANCY [facility] Temperature 35.4 C [facility] FIO2 100 [facility] Sample Type VENOUS [facility] technical proposal writer ID [id number] Test Performed by Respiratory [facility] 05/08/2008 6:56 EST 05/08/2008 18:53 EST us Jose Alejandro Castro MD CHEMISTRY & BLOOD GAS ORDERABLE S Final Result Performing Organization Address [facility] Co de Phone Number [facility] [address] [place] [address] * PTT (05/08/2008 6:50 EST) PTT 33 20 - 35 secs [facility] Comment:Therapeutic Heparin range: 60-100 seconds 05/08/2008 6:50 EST 05/08/2008 7:00 EST us Jose Alejandro Castro MD HEMATOLOGY & PF4 ORDERABLES Fin al Result Performing Organization Address City/[facility]/ZIP Co de Phone Number [facility] [address] [place] [address] * (ABNORMAL) PROTIME (05/08/2008 6:50 EST) Pro Time 16.3(H) 12.0 - 15.0 secs [facility] I.N.R. 1.3(H) 0.9 - 1.1 Ratio [facility] Comment: Moderate Intensity Coumadin INR = 2.0-3.0 Adjustments in anticoagulant therapy dose should be based upon the INR and NOT the Pro Time. 05/08/2008 6:50 EST 05/08/2008 7:00 EST Jose Alejandro Castro MD HEMATOLOGY & PF4 ORDERABLES Fin al Result Performing Organization Address [facility] Phone Number [facility] [address] [place] [address] * FIBRINOGEN (05/08/2008 6:50 EST) Pathologist [facility] Fibrinogen 406 220 - 410 mg/dl [facility] 05/08/2008 6:50 EST 05/08/2008 7:00 EST Jose Alejandro Castro MD HEMATOLOGY & PF4 ORDERABLES Fin al Result Performing Organization Address [facility] Phone Number [facility] [address] [place] [address] * (ABNORMAL) D-DIMER (05/08/2008 6:50 EST) Pathologist [facility] D-Dimer 1.88(H) <0.50 ug FEU/ml [facility] [...] FEU/mL 05/08/2008 6:50 EST 05/08/2008 7:00 EST us Jose Alejandro Castro MD HEMATOLOGY & PF4 ORDERABLES Fin al Result Performing Organization Address City/[facility]/ZIP Co de Phone Number [facility] [address] [place] [address] * (ABNORMAL) HEMAGRAM AND DIFFERENTIAL (05/08/2008 6:50 [...] [facility] Neutrophils 53.0 % [facility] % Bands 4.0 % [facility] Lymphocytes 35.0 % [facility] Monocytes 5.0 % [facility] % Metamyelocytes 3.0 % [facility] Nucleated RBC's 1 /100 WBC'S [facility] ABS Neutrophils 4.40 K/cmm [facility] ABS Bands 0.33 K/cmm [facility] ABS Lymphs 2.90 K/cmm [facility] ABS Monocytes 0.41 K/cmm TRUE [facility] ABS Metamyelocytes 0.25 K/cmm [facility] RBC Morphology 1+ Anisocytosis 1+ Poikilocytosis 1+ Microcytes 1+ Ovalocytes [facility] Platelet Morphology 1+ Clumped platelets [facility] Type of Diff: Manual RTUE [facility] 05/08/2008 6:50 EST 05/08/2008 7:00 EST Jose Alejandro Castro MD PACKAGES & DNA PROBE ORDERABLES Final Result Performing Organization Address City/[facility]/ZIP Co de Phone Number [facility] [address] [place] [address] * TROPONIN I (05/08/2008 6:50 EST) [facility] Troponin I pre 2012 1.34 ng/ml [facility] Comment: Reference Range: Normal: ??Less than 0.05 Indeterminate: ??0.05-0.80 Positive: ??Greater than 0.80 05/08/2008 6:50 EST 05/08/2008 13:16 EST Jose Alejandro Castro MD CHEMISTRY & BLOOD GAS ORDERABLE S Final Result [facility] [address] [place] [address] * LACTIC ACID (05/08/2008 6:50 EST) [facility] Lactic Acid 5.0 mmol/L [facility] 05/08/2008 6:50 EST 05/08/2008 13:16 EST Jose Alejandro Castro MD CHEMISTRY & BLOOD GAS ORDERABLE S Final Result Performing Organization Address City/[facility]/ZIP Co de Phone Number [facility] [address] [place] [address] * (ABNORMAL) CK MB WITH TOTAL CK (05/08/2008 6:50 EST) [facility] CK 140 U/L [facility] MB 9.0(H) 0 - 5.0 ng/ml [facility] CK-MB Index 6.4(H) 0 - 2.5 [facility] 05/08/2008 6:50 EST 05/08/2008 13:16 EST Jose Alejandro Castro MD CHEMISTRY & BLOOD GAS ORDERABLE S Final Result [facility] [address] [place] [address] * (ABNORMAL) ALT (05/08/2008 6:50 EST) ALT 55(H) 0 - 45 U/L [facility] 05/08/2008 6:50 EST 05/08/2008 13:16 EST us Jose Alejandro Castro MD CHEMISTRY & BLOOD GAS ORDERABLE S Final Result Performing Organization Address [facility]/ZIP Co de Phone Number [facility] [address] [place] [address] * (ABNORMAL) AST (05/08/2008 6:50 EST) AST 51(H) 15 - 46 U/L [facility] 05/08/2008 6:50 EST 05/08/2008 13:16 EST us Jose Alejandro Castro MD CHEMISTRY & BLOOD GAS ORDERABLE S Final Result Performing Organization Address [facility] Phone Number [facility] [address] [place] [address] * (ABNORMAL) GGT (05/08/2008 6:50 EST) GGT 42(H) 10 - 35 U/L [facility] 05/08/2008 6:50 EST 05/08/2008 13:16 EST us Jose Alejandro Castro MD CHEMISTRY & BLOOD GAS ORDERABLE S Final Result Performing Organization Address [facility] Phone Number [facility] [address] [place] [address] * (ABNORMAL) PHOSPHORUS (05/08/2008 6:50 EST) Phosphorus 1.6(L) 2.7 - 4.7 mg/dl [facility] 05/08/2008 6:50 EST 05/08/2008 13:16 EST us Jose Alejandro Castro MD CHEMISTRY & BLOOD GAS ORDERABLE S Final Result Performing Organization Address [facility] de Phone Number [facility] [address] [place] [address] * MAGNESIUM (05/08/2008 6:50 EST) Magnesium 1.7 1.7 - 2.8 mg/dl [facility] 05/08/2008 6:50 EST 05/08/2008 13:16 EST Jose Alejandro Castro MD CHEMISTRY & BLOOD GAS ORDERABLE S Final Result Performing Organization Address [facility] de Phone Number [facility] [address] [place] [address] * (ABNORMAL) GLUCOSE, SERUM (05/08/2008 6:50 EST) Glucose, Serum 66(L) 70 - 100 mg/dl [facility] 05/08/2008 6:50 EST 05/08/2008 13:16 EST Jose Alejandro Castro MD CHEMISTRY & BLOOD GAS ORDERABLE S Final Result Performing Organization Address [facility] Phone Number [facility] [address] [place] [address] * (ABNORMAL) CREATININE (05/08/2008 6:50 EST) Creatinine 2.10(H) 0.6 - 1.2 mg/dl [facility] GFR, Calculated Age <18 ml/min/1.7 3m2 [facility] 05/08/2008 6:50 EST 05/08/2008 13:16 EST Jose Alejandro Castro MD CHEMISTRY & BLOOD GAS ORDERABLE S Final Result Performing Organization Address [facility] de Phone Number [facility] [address] [place] [address] * (ABNORMAL) BUN (05/08/2008 6:50 EST) BUN 25(H) 8 - 21 mg/dl [facility] 05/08/2008 6:50 EST 05/08/2008 13:16 EST Jose Alejandro Castro MD CHEMISTRY & BLOOD GAS ORDERABLE S Final Result Performing Organization Address [facility] de Phone Number [facility] [address] [place] [address] * (ABNORMAL) ELECTROLYTES (05/08/2008 6:50 EST) Sodium 144 136 - 145 mEq/L [facility] Potassium 2.9(LL) 3.5 - 5.0 mEq/L [facility] Comment:Sample retested, res ult confirmed Chloride 113(H) 96 - 110 mEq/L [facility] CO2 18(L) 24 - 32 mEq/L [facility] 05/08/2008 6:50 EST 05/08/2008 13:16 EST us Jose Alejandro Castro MD CHEMISTRY & BLOOD GAS ORDERABLE S Final Result Performing Organization Address [facility] Phone Number [facility] [address] [place] [address] * (ABNORMAL) DELTA CREATININE (05/08/2008 6:50 EST) Delta Creatinine Elevated initial creatinine or critical change in creatinine value.(AA) [facility] 05/08/2008 6:50 EST 05/08/2008 13:16 EST Jose Alejandro Castro MD CHEMISTRY & BLOOD GAS ORDERABLE S Final Result Performing Organization Address [facility] de Phone Number [facility] [address] [place] [address] * GLUCOSE, GLUCOMETER (05/08/2008 6:31 EST) Glucose, Fingerstick 84 70 - 100 mg/dl [facility] Corrections Counselor ID [id number] Test Performed by Nursing Services [facility] 05/08/2008 6:31 EST 05/08/2008 21:19 EST Jose Alejandro Castro MD CHEMISTRY & BLOOD GAS ORDERABLE S Final Result Performing Organization Address [facility]/ZIP Co de Phone Number [facility] [address] [place] [address] documented in this encounter Visit Diagnoses Not on filedocumented in this encounter
--- OUTSIDE RECORDS SUMMARY | 2024-06-28 13:55 | XMS_ITS | Encounter Summary ---
Author Organization [facility] Address [address] [place] [address] Care Team Providers Care Tonsorial Artist Name Role Phone Unavailable Primary Care Provider Unavailabl e Encounter Details Date Type Department Care Team (Late st Contact Info) Description 11/27/2007 19:42 EDT - 11/30/2007 11:59 EDT Hospital Encounter [facility] Children's [facility] Pediatric Unit [address] [place], [place] [id number] Florida Enriquez MD MSc [address] [place] [address] Neo Benitez MD [address] [place] [phone] Discharge Disposition: Home or Self Care [...] SERVICE DATE: 11/27/2007 STUDY NUMBER: Inpatient EEG 2007 REFERRING PROVIDER: Yossi Garcia MD,PhD CLINICAL [...] Jose Lopez MD,PHD ABPN Certified in Neurology [place] Board Clinical Neurophysiology - Jose Lopez MD,PHD P - LBR Job ID: [id number] Document ID: [id number] cc: Yossi Garcia MD,PhD Jose Lopez MD,PHD P - lbr Job ID: [id number] Document ID: [id number] cc: Yossi Garcia MD,PhD documented in this [...] and neurological impairment. He was admitted to [facility] on November 27, 2007, from an outside hospital with mental status changes and hyponatremia, which has since been corrected. Following his surgery, he has been left with cognitive deficits and has spent considerable time in rehabilitation and is followed by Dr. Feliciano at [place] for behavioral problems. After talking with his [...] alternate taking care of him. He attends [employer] in [place], [place]. His biological mother two years ago [...] morning to get prepared to go to [employer], his school for the day, and so [...] limited due to his cognitivedeficits. 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 [place] II: Deferred. Spart[place] III: Panhypopituitarism status post craniopharyngioma resection, diabetes [...] Harris MD A - SS Job ID: [id number] Document ID: [id number] cc: MD Yan Cleveland MD Alisson L Richards, MD Jillian Sullivan, MD Jillian Sullivan, MD documented in this encounter Plan of Treatment Upcoming Encounters Date Type Department Care Team (Late st Contact Info) Description 07/06/2024 13:40 EST Office Visit [facility] Endocrinology - [address] [address] Wilder Zaidi, DO [address] [place] [phone] 09/09/2024 10:20 EST Office Visit [facility] Endocrinology [address] [address] Day Littlejohn MD PhD [address] [place] [phone] documented as of this encounter Procedures [...] 136 - 145 mEq/L [facility] 11/30/2007 9:10 EDT 11/30/2007 9:30 EDT Florida Enriquez MD MSc CHEMISTRY & BLOOD GAS ORDERABLES Final Result Performing Organization Address City/[facility]/ZIP Co de Phone Number [facility] [address] [place] [address] * GLUCOSE, GLUCOMETER (11/30/2007 6:14 EDT) Glucose, Fingerstick 70 70 - 100 mg/dl [facility] Procedure Rn ID [id number] Test Performed by Nursing Services [facility] 11/30/2007 6:14 EDT 11/30/2007 23:34 EDT Florida Enriquez MD MSc CHEMISTRY & BLOOD GAS ORDERABLES Final Result Performing Organization Address [facility] Co de Phone Number [facility] [address] [place] [address] * SODIUM (11/30/2007 6:00 EDT) Sodium 139 136 - 145 mEq/L [facility] 11/30/2007 6:00 EDT 11/30/2007 7:15 EDT us Florida Enriquez MD MSc CHEMISTRY & BLOOD GAS ORDERABLES Final Result [facility] [address] [place] [address] * GLUCOSE, SERUM (11/29/2007 18:00 EDT) Glucose, Serum 78 70 - 100 mg/dl [facility] 11/29/2007 18:0 0 EDT 11/29/2007 19:03 EDT us Florida Enriquez MD MSc CHEMISTRY & BLOOD GAS ORDERABLES Final Result Performing Organization Address [facility] de Phone Number [facility] [address] [place] [address] * SODIUM (11/29/2007 18:00 EDT) Sodium 139 136 - 145 mEq/L [facility] 11/29/2007 18:0 0 EDT 11/29/2007 19:03 EDT Florida Enriquez MD MSc CHEMISTRY & BLOOD GAS ORDERABLES Final Result Performing Organization Address [facility] Co de Phone Number [facility] [address] [place] [address] * GLUCOSE, SERUM (11/29/2007 8:36 EDT) Glucose, Serum 78 70 - 100 mg/dl [facility] 11/29/2007 8:36 EDT 11/29/2007 8:42 EDT us Florida Enriquez MD MSc CHEMISTRY & BLOOD GAS ORDERABLES Final Result Performing Organization Address [facility]/ZIP Co de Phone Number [facility] [address] [place] [address] * SODIUM (11/29/2007 8:36 EDT) Sodium 144 136 - 145 mEq/L [facility] 11/29/2007 8:36 EDT 11/29/2007 8:42 EDT us Florida Enriquez MD MSc CHEMISTRY & BLOOD GAS ORDERABLES Final Result Performing Organization Address [facility] Phone Number [facility] [address] [place] [address] * GLUCOSE, SERUM (11/29/2007 3:22 EDT) Glucose, Serum 87 70 - 100 mg/dl [facility] 11/29/2007 3:22 EDT 11/29/2007 3:27 EDT us Florida Enriquez MD MSc CHEMISTRY & BLOOD GAS ORDERABLES Final Result Performing Organization Address [facility] de Phone Number [facility] [address] [place] [address] * SODIUM (11/29/2007 3:22 EDT) Sodium 141 136 - 145 mEq/L [facility] 11/29/2007 3:22 EDT 11/29/2007 3:27 EDT us Florida Enriquez MD MSc CHEMISTRY & BLOOD GAS ORDERABLES Final Result Performing Organization Address [facility] Phone Number [facility] [address] [place] [address] * (ABNORMAL) GLUCOSE, SERUM (11/29/2007 0:23 EDT) Glucose, Serum 101(H) 70 - 100 mg/dl [facility] 11/29/2007 0:23 EDT 11/29/2007 0:23 EDT us Florida Enriquez MD MSc CHEMISTRY & BLOOD GAS ORDERABLES Final Result Performing Organization Address [facility]/ZIP Co de Phone Number [facility] [address] [place] [address] * SODIUM (11/29/2007 0:23 EDT) Sodium 142 136 - 145 mEq/L [facility] 11/29/2007 0:23 EDT 11/29/2007 0:23 EDT Florida Enriquez MD MSc CHEMISTRY & BLOOD GAS ORDERABLES Final Result Performing Organization Address [facility] Co de Phone Number [facility] [address] [place] [address] * SODIUM (11/28/2007 16:00 EDT) Sodium 143 136 - 145 mEq/L [facility] 11/28/2007 16:0 0 EDT 11/28/2007 21:30 EDT Florida Enriqeuz MD MSc CHEMISTRY & BLOOD GAS ORDERABLES Final Result Performing Organization Address [facility] de Phone Number [facility] [address] [place] [address] * GLUCOSE, SERUM (11/28/2007 12:00 EDT) Glucose, Serum 73 70 - 100 mg/dl [facility] 11/28/2007 12:0 0 EDT 11/28/2007 12:12 EDT Florida Enriquez MD MSc CHEMISTRY & BLOOD GAS ORDERABLES Final Result Performing Organization Address [facility] de Phone Number [facility] [address] [place] [address] * PHOSPHORUS (11/28/2007 12:00 EDT) Phosphorus 4.6 2.7 - 4.7 mg/dl [facility] 11/28/2007 12:0 0 EDT 11/28/2007 12:12 EDT Florida Enriquez MD MSc CHEMISTRY & BLOOD GAS ORDERABLES Final Result Performing Organization Address [facility] de Phone Number [facility] [address] [place] [address] * MAGNESIUM (11/28/2007 12:00 EDT) Magnesium 1.9 1.7 - 2.8 mg/dl [facility] 11/28/2007 12:0 0 EDT 11/28/2007 12:12 EDT Florida Enriquez MD MSc CHEMISTRY & BLOOD GAS ORDERABLES Final Result Performing Organization Address [facility] de Phone Number [facility] [address] [place] [address] * ELECTROLYTES (11/28/2007 12:00 EDT) Sodium 137 136 - 145 mEq/L [facility] Potassium 4.2 3.5 - 5.0 mEq/L [facility] Chloride 99 96 - 110 mEq/L [facility] CO2 26 24 - 32 mEq/L [facility] 11/28/2007 12:0 0 EDT 11/28/2007 12:12 EDT Florida Enriquez MD MSc CHEMISTRY & BLOOD GAS ORDERABLES Final Result Performing Organization Address [facility] de Phone Number [facility] [address] [place] [address] * (ABNORMAL) HEMAGRAM AND DIFFERENTIAL (11/28/2007 12:00 EDT) WBC 3.60(L) 4.6 - 11.2 K/cmm [facility] RBC 5.56(H) 4.50 - 5.30 M/cmm [facility] Hemoglobin 14.2 13.0 - 16.0 gm/dl [facility] HCT 41.6 37.0 - 49.0 % [facility] MCV 75(L) 78 - 98 fl [facility] MCH 25.6 pg [facility] MCHC 34.2 gm/dl [facility] PLT 216 156 - 312 K/cmm [facility] RDW-CV 18.1 % [facility] Neutrophils 64.0 % [facility] Lymphocytes 26.0 % [facility] Monocytes 10.0 % [facility] ABS Neutrophils 2.30 K/cmm [facility] ABS Lymphs 0.94 K/cmm [facility] ABS Monocytes 0.36 K/cmm [facility] RBC Morphology 1+ Anisocytosis 1+ Microcytes [facility] Type of Diff: Manual [facility] 11/28/2007 12:0 0 EDT 11/28/2007 12:12 EDT us Florida Enriquez MD, MSc PACKAGES & DNA PRO BE ORDERABLES Final Result Performing Organization Address [facility] Co de Phone Number [facility] [address] [place] [address] * CALCIUM (11/28/2007 12:00 EDT) Calcium 9.4 8.5 - 10.5 mg/dl [facility] Calculated Calcium 9.1 8.5 - 10.5 mg/dl [facility] 11/28/2007 12:0 0 EDT 11/28/2007 12:12 EDT Florida Enriquez MD MSc CHEMISTRY & BLOOD GAS ORDERABLES Final Result Performing Organization Address City/[facility]/ZIP Co de Phone Number [facility] [address] [place] [address] * TESTS ADDED BY PHONE (11/28/2007 12:00 EDT) Tests to be added NA [facility] Who Called SKYLA FOR DR. SHAKIR G[facility]IA Location Code B5 [facility] 11/28/2007 12:0 0 EDT 11/28/2007 12:12 EDT Florida Enriquez MD MSc CHEMISTRY & BLOOD GAS ORDERABLES Final Result Performing Organization Address [facility]/ZIP Co de Phone Number [facility] [address] [place] [address] * SODIUM (11/28/2007 8:15 EDT) Sodium 138 136 - 145 mEq/L [facility] 11/28/2007 8:15 EDT 11/28/2007 8:52 EDT Florida Enriquez MD MSc CHEMISTRY & BLOOD GAS ORDERABLES Final Result Performing Organization Address [facility] de Phone Number [facility] [address] [place] [address] * GLUCOSE, SERUM (11/28/2007 4:15 EDT) Glucose, Serum 79 70 - 100 mg/dl [facility] 11/28/2007 4:15 EDT 11/28/2007 4:22 EDT Florida Enriquez MD MSc CHEMISTRY & BLOOD GAS ORDERABLES Final Result Performing Organization Address [facility] [place] [address] * (ABNORMAL) SODIUM (11/28/2007 4:15 EDT) Sodium 135(L) 136 - 145 mEq/L [facility] 11/28/2007 4:15 EDT 11/28/2007 4:22 EDT Florida Enriquez MD MSc CHEMISTRY & BLOOD GAS ORDERABLES Final Result Performing Organization Address [facility] [place] [address] * CT HEAD WO CONTRAST (11/28/2007 2:42 [...] Postoperative changes as described. Procedure Note Louis Crain, - 12/18/2008 ms change in 17yo m [...] recurrent solid tumor. Postoperative changes as described. us Neo Benitez MD IMG CT ORDERABLES Final Resu lt * ELECTROLYTES (11/28/2007 0:10 EDT) Sodium 136 136 - 145 mEq/L [facility] Potassium 4.5 3.5 - 5.0 mEq/L [facility] Chloride 101 96 - 110 mEq/L [facility] CO2 25 24 - 32 mEq/L [facility] 11/28/2007 0:10 EDT 11/28/2007 0:13 EDT Florida Enriquez MD MSc CHEMISTRY & BLOOD GAS ORDERABLES Final Result Performing Organization Address [facility] Co de Phone Number [facility] [address] [place] [address] * GLUCOSE, GLUCOMETER (11/27/2007 23:47 EDT) Glucose, Fingerstick 80 70 - 100 mg/dl [facility] Procedure Rn ID [id number] Test Performed by Nursing Services [facility] 11/27/2007 23:4 7 EDT 11/27/2007 23:48 EDT Florida Enriquez MD MSc CHEMISTRY & BLOOD GAS ORDERABLES Final Result Performing Organization Address [facility] Co de Phone Number [facility] [address] [place] [address] * (ABNORMAL) GLUCOSE, GLUCOMETER (11/27/2007 18:32 EDT) Glucose, Fingerstick 52(L) 70 - 100 mg/dl [facility] Procedure Rn ID [id number] Test Performed by Nursing Services [facility] 11/27/2007 18:3 2 EDT 11/27/2007 23:48 EDT Florida Enriquez MD MSc CHEMISTRY & BLOOD GAS ORDERABLES Final Result Performing Organization Address [facility]/ZIP Co de Phone Number [facility] [address] [place] [address] documented in this encounter Visit Diagnoses Not on filedocumented in this encounter
--- OUTSIDE RECORDS SUMMARY | 2024-06-28 13:55 | XMS_ITS | Encounter Summary ---
Author Organization [facility] Address [address] [place] [address] Care Team Providers Care Vice President Of Communications Name Role Phone Unavailable Primary Care Provider Unavailabl e Encounter Details Date Type Department Care Team (Late st Contact Info) Description 04/11/2008 14:00 EDT - 04/13/2008 11:59 EDT Hospital Encounter [facility] Children[facility] Pediatric Unit [address] [place] [address] Skyler Valencia MD [facility] [address] [facility], [address] [phone] Christopher Ga MD [address] [place] [phone] Discharge Disposition: Home-Health Care Svc Social History Tobacco Use Types Packs/Day Years Used Date Smoking Tobacco: Never Assessed Sex and Gender Information Value Date Recorded Sex Assigned at Not on file Legal Sex Male 18:35 EST Gender Identity Not on file Sexual Orientation Not on file documented as of this encounter Discharge Summaries * Yan Khan MD, MD - 01/17/20092037 EDT HISS DISCHARGE SUMMARY ADDRESS: [address] [place] [address] PHONE: [phone] ATTENDING PHYSICIAN: SKYLER VALENCIA MD ADDRESS: [place] [address] [address] [place] [address] PHONE: [phone] REFERRING PHYSICIAN: JOSEY SKINNER MD ADDRESS: [facility] [address] [place] [address] PHONE: [phone] ADMISSION DATE: 04/11/08 SERVICE: PED. MEDICINE TRANSFER TO IP: DISCHARGE DATE: 04/13/08 SERVICE: PED. MEDICINE CHIEF COMPLAINT / REASON FOR ADMISSION: seizure PRINCIPAL/FINAL DIAGNOSIS: Seizure COMPLICATIONS/CO-MORBID CONDTITIONS: Panhypopitutarism Central diabetes insipitus Adrenal isufficiency Hypothyroidism Cortical blindness Developmental delay CONDITION AT DISCHARGE: Stable Improved DISPOSITION AT DISCHARGE: Home with home health services - Nursing, PT, OT, ANIMAL CYTOLOGIST ALLERGIES: The following allergies were reported by [...] STOPPED: NONE HERBAL REMEDIES, NUTRITIONAL SUPPLEMENTS, AND [id number] MEDICATIONS that have not been prescribed by a physician may have significant adverse side effect or may interfere with the medications that have been prescribed for you. If you are taking herbal remedies, nutritional supplements, or gczi-zrh-pstkpri medications you are strongly encouraged to discontinue [...] also given IM ceftriaxone x1. Transferred to [facility]. 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 His seizure threashold was most likely lowered by a viral infection, disurbed sleep pattern, or other unknown entity. Started Keppra per Neuro recommendations. He has an appt to see a neurologist at [facility] in May. Disturbed sleep and and apparent [...] lytes as an outpatient 04/14. Nutrition: the enterprise resource planning consultant were consulted regarding Miguel Angel's very restrictive calorie restriction and recommended a new diet plan of 1800 kcal/day and 75g protien. They are happy to see Miguel Angel with his parents as an outpatient at [facility] as they were unable to meet with [...] Follow up with your new neurologist at [facility] Follow up with Dr. King in [place], endocrinology Follow up with Dr. Skinner at 3:30PM HOME HEALTH CARE REFERRAL SERVICES: Previously followed by: [facility] __ Initial call by: _Jazz Bush on 04/12/08_@ __:__ Spoke with: _Jyothi in intake [phone] fax [phone] The primary care physician has been notified of the home health referral and has given verbal permission for all orders and/or clarifications pursuant to this referral to be managed by the primary care physician's office. Marta Pisano (Director Of Residence Life) to follow as outpt through [place] office cc: Patient chart MD JOSEY SCHMITZ MD Dr. Larrow at [phone] Pediatric Neurology at [facility] END OF REPORT D: YAN KHAN MD P - ZOHDocument ID: [id number] documented in this encounter Discharge Disposition Disposition Code Departure Means Destination Home-Health Care [facility] documented in this encounter Consult Notes * [...] frustration with the care they received at [facility] but apparently had made a spontaneous recovery. [...] his early February admission here and at [facility]. There was no fever but he was [...] that there is a follow-up appointment at [facility] Neurology and perhaps that will be [...] Lc Cheng MD P - Job ID: [id number] Document ID: [id number] cc: MD Yan Walker MD Paul Rosenau, MD documented in this encounter Plan of Treatment Upcoming Encounters Date Type Department Care Team (Late st Contact Info) Description 07/06/2024 13:40 EST Office Visit [facility] Endocrinology - [facility] [address] [place] [address] Wilder Zaidi, DO [address] [facility] [address] [place] [address] 09/09/2024 10:20 EST Office Visit [facility] Endocrinology - [facility] [address] [place] [address] Day Littlejohn MD PhD [address] [facility] [address] [place] [address] documented as of this [...] - 145 mEq/L [facility] Comment: Slight hemolysis Heparinized plasma. [...] EDT Skyler Valencia MD MSc CHEMISTRY & BLOOD GAS ORDERABLES Final Result Performing Organization Address [facility] de Phone Number [facility] [address] [place] [address] * (ABNORMAL) ELECTROLYTES (04/12/2008 18:38 EDT) Sodium 130(L) 136 - 145 mEq/L [facility] Comment:Slight hemolysis Potassium 6.5(HH) 3.5 - 5.0 mEq/L [facility] Comment: Hemolysis may elevate potassium result. Slight hemolysis Sample retested, result confirmed Chloride 96 96 - 110 mEq/L [facility] Comment:Slight hemolysis CO2 18(L) 24 - 32 mEq/L [facility] Comment:Slight hemolysis 04/12/2008 18:3 8 EDT 04/12/2008 18:53 EDT Skyler Valencia MD MSc CHEMISTRY & BLOOD GAS ORDERABLES Final Result Performing Organization Address [facility] Phone Number [facility] [address] [place] [address] * CREATININE (04/12/2008 10:29 EDT) Creatinine 0.60 0.6 - 1.2 mg/dl [facility] GFR, Calculated Age <18 ml/min/1.7 3m2 [facility] 04/12/2008 10:2 9 EDT 04/12/2008 10:30 EDT Skyler Valencia MD MSc CHEMISTRY & BLOOD GAS ORDERABLES Final Result Performing Organization Address [facility]/State/ZIP Co de Phone Number [facility] [address] [place] [address] * BUN (04/12/2008 10:29 EDT) Pathologist [facility] BUN 13 8 - 21 mg/dl [facility] 04/12/2008 10:2 9 EDT 04/12/2008 10:30 EDT Skyler Valencia MD MSc CHEMISTRY & BLOOD GAS ORDERABLES Final Result Performing Organization Address City/[facility] Co de Phone Number [facility] [address] [place] [address] * (ABNORMAL) ELECTROLYTES (04/12/2008 10:29 EDT) [facility] Sodium 129(L) 136 - 145 mEq/L [facility] Potassium 3.9 3.5 - 5.0 mEq/L [facility] Chloride 94(L) 96 - 110 mEq/L [facility] CO2 25 24 - 32 mEq/L [facility] 04/12/2008 10:2 9 EDT 04/12/2008 10:30 EDT Skyler Valencia MD MSc CHEMISTRY & BLOOD GAS ORDERABLES Final Result Performing Organization Address [facility] de Phone Number [facility] [address] [place] [address] * (ABNORMAL) HEMAGRAM AND DIFFERENTIAL (04/12/2008 10:29 EDT) Pathologist [facility] WBC 3.12(L) 4.6 - 11.2 K/cmm [facility] RBC 4.23(L) 4.50 - 5.30 M/cmm [facility] Hemoglobin 11.0(L) 13.0 - 16.0 gm/dl [facility] HCT 32.5(L) 37.0 - 49.0 % [facility] MCV 77(L) 78 - 98 fl [facility] MCH 26.0 pg [facility] MCHC 33.8 gm/dl [facility] PLT 119(L) 156 - 312 K/cmm [facility] RDW-CV 16.7 % [facility] Neutrophils 28.0 % [facility] % Bands 1.0 % [facility] Lymphocytes 55.0 % [facility] Monocytes 15.0 % [facility] Eosinophils 1.0 % [facility] ABS Neutrophils 0.87 K/cmm [facility] Bands 0.03 K/cmm [facility] ABS Lymphs 1.72 K/cmm [facility] ABS Monocytes 0.47 K/cmm [facility] ABS Eosinophils 0.03 K/cmm [facility] RBC Morphology 1+ Anisocytosis 1+ Microcytes [facility] Type of Diff: Manual [facility] 04/12/2008 10:2 9 EDT 04/12/2008 10:30 EDT Skyler Valencia MD MSc PACKAGES & DNA PROBE ORDERABLES Final Result Performing Organization Address [facility] de Phone Number [facility] [address] [place] [address] * CREATININE (04/11/2008 16:00 EDT) Creatinine 0.81 0.6 - 1.2 mg/dl [facility] GFR, Calculated Age <18 ml/min/1.7 3m2 [facility] 04/11/2008 16:0 0 EDT 04/11/2008 17:27 EDT Skyler Valencia MD MSc CHEMISTRY & BLOOD GAS ORDERABLES Final Result Performing Organization Address City/[facility] Co de Phone Number [facility] [address] [place] [address] * BUN (04/11/2008 16:00 EDT) BUN 17 8 - 21 mg/dl [facility] 04/11/2008 16:0 0 EDT 04/11/2008 17:27 EDT Skyler Valencia MD MSc CHEMISTRY & BLOOD GAS ORDERABLES Final Result Performing Organization Address [facility] de Phone Number [facility] [address] [place] [address] * (ABNORMAL) ELECTROLYTES (04/11/2008 16:00 EDT) Sodium 130(L) 136 - 145 mEq/L [facility] Potassium 4.1 3.5 - 5.0 mEq/L [facility] Chloride 95(L) 96 - 110 mEq/L [facility] CO2 23(L) 24 - 32 mEq/L [facility] 04/11/2008 16:0 0 EDT 04/11/2008 17:27 EDT Skyler Valencia MD MSc CHEMISTRY & BLOOD GAS ORDERABLES Final Result Performing Organization Address [facility] Co de Phone Number [facility] [address] [place] [address] documented in this encounter Visit Diagnoses Not on filedocumented in this encounter
--- OUTSIDE RECORDS SUMMARY | 2024-06-28 13:55 | XMS_ITS | Encounter Summary ---
Author Organization [facility] Address [address] [place] [address] Care Team Providers Care Embroidery Finisher Name Role Phone Corin Skinner MD Primary Care Provider [phone]- [phone] Encounter Details Date Type Department Care Team (Late st Contact Info) Description 04/11/2008 Office Visit [facility] [place] conversion [address] [place] [address] Nurse, Emergency Room, Social History Tobacco Use Types Packs/Day Years Used Date Smoking Tobacco: Never Assessed Sex and Gender Information Value Date Recorded Sex Assigned at Not on file Legal Sex Male 18:35 EST Gender Identity Not on file Sexual Orientation Not on file documented as of this encounter Progress Notes * Ricki, Conv Junior Web Designer - 08/16/2009 1849 EST Department - Physician Summary Registration Date/Time: 04/11/2008 6:00 Addenda for MIGUEL ANGEL MASON JR VisitID: [id number] Date: 04/11/2008 04/11/2008 4:46 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 POSTICTAL, INCONTINENT, RECTAL TEMP: 89 F, NOW 89 F. HX: DM, BLOOD CX, WBC 1.8, [id number]. VS: 98 113/64 16. signed by Wilder Driscoll - 04/11/2008 4:46) 04/11/2008 4:48 Dr. aG accepting signed by Rosy Garcia 04/11/2008 4:48) Department -Nursing Summary Registration Date/Time: [...] today. Pain level: unable to quantify. Treatment BUSINESS OPERATIONS MANAGER: (see transfer paperwork). PAST HX: Diabetes mellitus (insipidus). (traumatic brain injury, seizure disorder). SOCIAL HX: Nonsmoker. No alcohol use. The nutritional risk assessment revealed no deficiencies. No report of abuse. Arrived by EMS. Historian: EMS. --634 Rosy Ramírez R.N. (Father states when at [place] 2 months ago, it was discovered that [...] succ given to pt. error in entry.. --0728 Rosy Ramírez R.N. BP: 98 / 47 lying. HR: 122. Temp: 36.9 tympanic. O2 saturation: 98 % room air. --0758 Estela Lomax Blood samples drawn from the right forearm [...] DISPOSITION / DISCHARGE Report was given (to Mandy-HEATHER Boyd 5). Admitted to pediatrics. --1232 Lucille Carlson R.N. Transported via stretcher by transport team. Patient has no belongings. --1341 Lucille Carlson R.N.. Estela Sahni R.N., R.N. Locked/Released at 04/12/2008 11:37 by Anabelle Perez R.N. documented in this encounter Plan of Treatment Upcoming Encounters Date Type Department Care Team (Late st Contact Info) Description 07/06/2024 13:40 EST Office Visit [facility] Endocrinology - [facility] [address] [place] [address] Wilder Zaidi, DO [address] [facility] [address] [place] [phone] 09/09/2024 10:20 EST Office Visit [facility] Endocrinology - [facility] [address] [place] [address] Day Littlejohn MD PhD [address] [phone] documented as of this encounter Visit Diagnoses Not on filedocumented in this encounter Care Teams Embroidery Finisher Relationship Specialty Start Date End Date Corin Skinner MD [address] [place] [phone] PCP - General 10/24/08 08/21/09 documented as of this encounter
--- OUTSIDE RECORDS SUMMARY | 2024-06-28 13:55 | XMS_ITS | Encounter Summary ---
Author Organization [facility] Address [address] [place] [address] Care Team Providers Care Flask Carrier Name Role Phone Unavailable Primary Care Provider Unavailabl e Encounter Details Date Type Department Care Team (Late st Contact Info) Description 02/09/2008 2:41 EDT - 02/12/2008 11:59 EDT Hospital Encounter [facility] Pediatric Unit [address] [place] [address] Jodi Christie MD [address] [facility], [address] [place] [phone] Yossi Murphy MD 111 [facility], [address] [place] [address] Discharge Disposition: Another Health Care Institution Not [...] 01/13/2009 1403 EDT HISS DISCHARGE SUMMARY ADDRESS: [address] [place] [address] PHONE: [phone] ATTENDING PHYSICIAN: JODI CHRISTIE MD ADDRESS: [address] [address] PHONE: [phone] REFERRING PHYSICIAN: YAN GOEL MD ADDRESS: [address] [place] [address] PHONE: [phone] ADMISSION DATE: 02/09/08 SERVICE: PED. MEDICINE TRANSFER TO : DISCHARGE DATE: 02/12/08 SERVICE: PED. MEDICINE CHIEF [...] STOPPED: NONE HERBAL REMEDIES, NUTRITIONAL SUPPLEMENTS, AND [id number]-[id number] MEDICATIONS that have not been prescribed by a physician may have significant adverse side effect or may interfere with the medications that have been prescribed for you. If you are taking herbal remedies, nutritional supplements, or yeay-sjh-fibuzvb medications you are strongly encouraged to discontinue [...] a history of panhypopituitarism who [facility] due to altered mental status. One week prior the patient had been seen at the [facility] ER following some seizure like activity [...] symptoms on 02/08 he was taken to [facility] where he had a Temperature of 31, [...] continued to express interest in transfer to [place] and transport was arranged. He was transferred to [facility] on 02/12/08 by [facility]. Recommendations from Endocrinology 02/11 were to decrease [...] JESSIKA RIVERA MD P - ZOHDocument ID: [id number] documented in this encounter Discharge Disposition Disposition [...] panhypopituitarism, who presentedon February 09, 2008, to [facility] ER with severe hyponatremia and mental status [...] The plan is to transfer him to therelar inpatient floor with continued close monitoring of [...] room air throughout the admission. 3. Cardiovascular. Bettian hemodynamics were stable throughout his PICU admission. [...] DISPOSITION Miguel Angel will be transferred to [place] [address] today. His family wishes to seek transfer to [facility], and those investigations are occurring at the time of transfer. CONDITION AT DISCHARGE Stable. Supervising Physician Signed by Otilio Castro MD 02/09/2008 15:43 Wilder Bejarano MD Otilio Castro MD - Wilder Bejarano MD P - CSS Job ID: [id number] Document ID: [id number] cc: MD Otilio Alcantar MD Daniel W [...] the parents have insisted on transfer to [facility]; arrival of transport is expected imminently. I would recommend that he continue on a relatively modest dose of [id number] mg b.i.d., in part because of his [...] 15:31 Lc Cheng MD D: - Lc Cheng MD P - SS Job ID: [id number] Document ID: [id number] cc: MD Yan Walker MD Christa M Zehle, MD * Lc Cheng MD - 02/11/2008 0000 EDT INPATIENT CONSULTATION Admission Date: 02/09/2008 Date of consultation: 02/11/2008 This is an inpatient pediatric neurologic follow-up consultation/reconsultation on this [id number] left hemiparesis, panhypopituitarism, craniopharyngioma resection, new onset [...] Lc Cheng MD P - Job ID: [id number] Document ID: [id number] cc: MD Yan Walker MD Christa M Zehle, MD * Lc Cheng MD - 02/10/2008 0000 EDT INPATIENT CONSULTATION Admission Date: 02/09/2008 Date of consultation: 02/10/2008 This is an inpatient neurologic evaluation at the request of Dr. oJdi Christie. The question concerns continuation of seizure [...] treatment for that including [facility] at [facility], was started on phenytoin. Since that time, he has had some decreased responsivenessand balance (phenytoin 100 mg t.i.d.). He came in because of mental status change and has been hospitalized here for the last three days and had correction of what was found to be hyponatremia and church of his usual DDAVP regime along with [...] his step-mother. His step-mother is his principle water trainer. There is no family history of epilepsy. [...] Cheng MD A - SADE Job ID: [id number] Document ID: [id number] cc: MD Rui Walker III, MD Daniel W Larrow, MD Christa M Zehle, MD documented in this encounter Plan of Treatment Upcoming Encounters Date Type Department Care Team (Late st Contact Info) Description 07/06/2024 13:40 EST Office Visit [facility] Endocrinology - [address] [address] Wilder Zaidi, [address] [place] [phone] 09/09/2024 10:20 EST Office Visit [facility] Endocrinology [address] [address] Day Littlejohn MD PhD [address] [place] [phone] documented as of this encounter Procedures [...] [facility] Comment: Slight hemolysis Heparinized plasma. Potassium 3.6 3.5 - 5.0 mEq/L [facility] Comment: Hemolysis may elevate potassium result. Slight hemolysis Heparinized plasma. Chloride 119(H) 96 - 110 mEq/L [facility] Comment: Slight hemolysis Heparinized plasma. CO2 21(L) 24 - 32 mEq/L [facility] Comment: Slight hemolysis Heparinized plasma. 02/12/2008 12:0 0 EDT 02/12/2008 12:22 EDT us Jodi Christie MD CHEMISTRY & BLOOD GAS ORDERABLE S Final Result [facility] [address] [place] [address] * (ABNORMAL) BLOOD GAS, G3 ISTAT (02/12/2008 10:45 EDT) pH, i-STAT 7.38 7.35 - 7.45 [facility] pCO2, i-STAT 45 35 - 45 mmHg [facility] pO2, i-STAT 113(H) 85 - 100 mmHg [facility] TCO2, i-STAT 28 mEq/L [facility] O2 Saturation 98 % [facility] Base Excess 1 [facility] Sample Type NOT GIVEN [facility] [place] [id number] Test performed by Chemistry [facility] 02/12/2008 10:4 5 EDT 02/12/2008 10:50 EDT us Jodi Christie MD CHEMISTRY & BLOOD GAS ORDERABLE S Final Result Performing Organization Address [facility] Co de Phone Number [facility] [address] [place] [address] * (ABNORMAL) GLUCOSE, GLUCOMETER (02/12/2008 10:05 EDT) Glucose, Fingerstick 125(H) 70 - 100 mg/dl [facility] Hvac Controls Technician ID [id number] Test Performed by Nursing Services [facility] 02/12/2008 10:0 5 EDT 02/13/2008 3:40 EDT us Jodi Christie MD CHEMISTRY & BLOOD GAS ORDERABLE S Final Result Performing Organization Address City/[facility]/ZIP Co de Phone Number [facility] [address] [place] [address] * (ABNORMAL) BLOOD GAS, G3 ISTAT (02/12/2008 8:58 EDT) pH, i-STAT 7.50(H) 7.35 - 7.45 [facility] pCO2, i-STAT 31(L) 35 - 45 mmHg [facility] pO2, i-STAT 248(H) 85 - 100 mmHg [facility] TCO2, i-STAT 25 mEq/L [facility] O2 Saturation 100 % [facility] Base Excess 2 [facility] Sample Type NOT GIVEN [facility] [place] [id number] Test performed by Chemistry [facility] 02/12/2008 8:58 EDT 02/12/2008 9:03 EDT Jodi Christie MD CHEMISTRY & BLOOD GAS ORDERABLE S Final Result Performing Organization Address [facility] de Phone Number [facility] [address] [place] [address] * (ABNORMAL) GLUCOSE, GLUCOMETER (02/12/2008 8:51 EDT) Glucose, Fingerstick 130(H) 70 - 100 mg/dl [facility] Hvac Controls Technician ID [id number] Test Performed by Nursing Services [facility] 02/12/2008 8:51 EDT 02/13/2008 3:29 EDT us Jodi Christie MD CHEMISTRY & BLOOD GAS ORDERABLE S Final Result Performing Organization Address [facility] de Phone Number [facility] [address] [place] [address] * (ABNORMAL) PHOSPHORUS (02/12/2008 8:35 EDT) Phosphorus 5.6(H) 2.7 - 4.7 mg/dl [facility] Comment: Results may be affected due to hemolysis. Slight hemolysis 02/12/2008 8:35 EDT 02/12/2008 8:48 EDT Jodi Christie MD CHEMISTRY & BLOOD GAS ORDERABLE S Final Result Performing Organization Address [facility] de Phone Number [facility] [address] [place] [address] * MAGNESIUM (02/12/2008 8:35 EDT) Magnesium 2.1 1.7 - 2.8 mg/dl [facility] Comment: Results may be affected due to hemolysis. Slight hemolysis 02/12/2008 8:35 EDT 02/12/2008 8:48 EDT us Jodi Christie MD CHEMISTRY & BLOOD GAS ORDERABLE S Final Result Performing Organization Address [facility] de Phone Number [facility] [address] [place] [address] * CALCIUM (02/12/2008 8:35 EDT) Calcium 9.2 8.5 - 10.5 mg/dl [facility] Comment:Slight hemolysis Calculated Calcium 8.8 8.5 - 10.5 mg/dl [facility] Comment: Results may be affected due to hemolysis. Slight hemolysis 02/12/2008 8:35 EDT 02/12/2008 8:48 EDT Jodi Christie MD CHEMISTRY & BLOOD GAS ORDERABLE S Final Result Performing Organization Address [facility] de Phone Number [facility] [address] [place] [address] * (ABNORMAL) GLUCOSE, GLUCOMETER (02/12/2008 8:17 EDT) Glucose, Fingerstick 53(L) 70 - 100 mg/dl [facility] Hvac Controls Technician ID [id number] Test Performed by Nursing Services [facility] 02/12/2008 8:17 EDT 02/13/2008 3:29 EDT us Jodi Christie MD CHEMISTRY & BLOOD GAS ORDERABLE S Final Result Performing Organization Address [facility] de Phone Number [facility] [address] [place] [address] * CREATININE (02/12/2008 5:55 EDT) Creatinine 1.10 0.6 - 1.2 mg/dl [facility] Comment:Heparinized plasma. GFR, Calculated Age <18 Heparinize d plasma. ml/min/1.7 3m2 [facility] 02/12/2008 5:55 EDT 02/12/2008 6:21 EDT us Jodi Christie MD CHEMISTRY & BLOOD GAS ORDERABLE S Final Result Performing Organization Address [facility] de Phone Number [facility] [address] [place] [address] * BUN (02/12/2008 5:55 EDT) BUN 15 8 - 21 mg/dl [facility] Comment:Heparinized plasma. 02/12/2008 5:55 EDT 02/12/2008 6:21 EDT us Jodi Christie MD CHEMISTRY & BLOOD GAS ORDERABLE S Final Result Performing Organization Address [facility] de Phone Number [facility] [address] [place] [address] * TESTS ADDED BY PHONE (02/12/2008 5:55 EDT) Tests to be added [facility] Who Called [facility] Location Code B5 [facility] 02/12/2008 5:55 EDT 02/12/2008 6:21 EDT us Jodi Christie MD CHEMISTRY & BLOOD GAS ORDERABLE S Final Result Performing Organization Address [facility] Phone Number [facility] [address] [place] [address] * (ABNORMAL) ELECTROLYTES (02/12/2008 5:55 EDT) Sodium 151(H) 136 - 145 mEq/L [facility] Comment:Heparinized plasma. Potassium 3.4(L) 3.5 - 5.0 mEq/L [facility] Comment:Heparinized plasma. Chloride 110 96 - 110 mEq/L [facility] Comment:Heparinized plasma. CO2 27 24 - 32 mEq/L [facility] Comment:Heparinized plasma. 02/12/2008 5:55 EDT 02/12/2008 6:21 EDT us Jodi Christie MD CHEMISTRY & BLOOD GAS ORDERABLE S Final Result Performing Organization Address [facility]/ZIP Co de Phone Number [facility] [address] [place] [address] * CORTISOL (02/12/2008 2:05 EDT) Cortisol Wrong tube/speci men type ug/dl [facility] Comment:CANNOT BE RUN ON GRE EN MICROTAINER 02/12/2008 2:05 EDT 02/12/2008 2:17 EDT us Jodi Christie MD CHEMISTRY & BLOOD GAS ORDERABLE S Final Result Performing Organization Address [facility] de Phone Number [facility] [address] [place] [address] * TESTS ADDED BY PHONE (02/12/2008 2:05 EDT) Tests to be added [facility] Who Called [facility] Location Code B5 [facility] 02/12/2008 2:05 EDT 02/12/2008 2:17 EDT Jodi Christie MD CHEMISTRY & BLOOD GAS ORDERABLE S Final Result Performing Organization Address [facility] de Phone Number [facility] [address] [place] [address] * (ABNORMAL) ELECTROLYTES (02/12/2008 2:05 EDT) Sodium 146(H) 136 - 145 mEq/L [facility] Potassium 3.9 3.5 - 5.0 mEq/L [facility] Chloride 108 96 - 110 mEq/L [facility] CO2 27 24 - 32 mEq/L [facility] 02/12/2008 2:05 EDT 02/12/2008 2:17 EDT us Jodi Christie MD CHEMISTRY & BLOOD GAS ORDERABLE S Final Result Performing Organization Address [facility] Co de Phone Number [facility] [address] [place] [address] * (ABNORMAL) BLOOD GAS, G3 ISTAT (02/11/2008 [...] LAB Sample Type NOT GIVEN [facility] table operator ID [id number] Test performed by Chemistry [facility] 02/11/2008 22:1 5 EDT 02/11/2008 22:20 EDT Jodi Christie MD CHEMISTRY & BLOOD GAS ORDERABLE S Final Result Performing Organization Address [facility] de Phone Number [facility] [address] [place] [address] * (ABNORMAL) ELECTROLYTES (02/11/2008 21:50 EDT) Sodium 149(H) 136 - 145 mEq/L [facility] Potassium 4.4 3.5 - 5.0 mEq/L [facility] Chloride 108 96 - 110 mEq/L [facility] CO2 29 24 - 32 mEq/L [facility] 02/11/2008 21:5 0 EDT 02/11/2008 22:07 EDT Jodi Christie MD CHEMISTRY & BLOOD GAS ORDERABLE S Final Result Performing Organization Address [facility] de Phone Number [facility] [address] [place] [address] * MR HEAD W/WO CONTRAST (02/11/2008 20:14 [...] present. Jodi Christie MD IMG MRI ORDERABLES Final Result * CULTURE IF UA POSITIVE (02/11/2008 19:10 EDT) Pathologist [facility] Culture if Indicated Culture not indicated by urinalysis results. [facility] 02/11/2008 19:1 0 EDT 02/11/2008 19:21 EDT Jodi Christie MD MICROBIOLOGY - GENERAL ORDERABL ES Final Result Performing Organization Address City/[facility]/ZIP Co de Phone Number [facility] [address] [place] [address] * UA REFLEX (02/11/2008 19:10 EDT) Pathologist [facility] UA Billing Microscopic not indicated. [facility] 02/11/2008 19:1 0 EDT 02/11/2008 19:21 EDT Jodi Christie MD URINALYSIS ORDERABLES Final Res ult Performing Organization Address City/[facility]/ZIP Co de Phone Number [facility] [address] [place] [address] * (ABNORMAL) URINALYSIS, CHEMICAL (02/11/2008 19:10 EDT) Color, UA Straw [facility] Clarity, UA Clear [facility] Glucose, UA Norm NORM [facility] Bilirubin, UA Neg NEG [facility] Ketones, UA Neg NEG [facility] Specific [place], Urine <1.005(L) 1.005 - 1.02 [facility] Blood, UA Neg NEG [facility] pH, UA 6.0 5.0 - 9.0 [facility] Protein, UA Neg NEG [facility] Urobilinogen, UA Norm NORM mg/dL [facility] Nitrite, UA Neg NEG [facility] Leuk Esterase Neg NEG [facility] 02/11/2008 19:1 0 EDT 02/11/2008 19:21 EDT us Jodi Christie MD URINALYSIS ORDERABLES Final Res ult Performing Organization Address [facility] Co de Phone Number [facility] [address] [place] [address] * (ABNORMAL) BLOOD GAS, G3 ISTAT (02/11/2008 18:45 EDT) pH, i-STAT 7.31(L) 7.35 - 7.45 [facility] pCO2, i-STAT 54(H) 35 - 45 mmHg [facility] pO2, i-STAT 53(L) 85 - 100 mmHg [facility] TCO2, i-STAT 29 mEq/L [facility] O2 Saturation 83 % [facility] Base Excess 0 [facility] Sample Type NOT GIVEN [facility] table operator ID [id number] Test performed by Chemistry [facility] 02/11/2008 18:4 5 EDT 02/11/2008 18:50 EDT Jodi Christie MD CHEMISTRY & BLOOD GAS ORDERABLE S Final Result Performing Organization Address [facility] Co de Phone Number [facility] [address] [place] [address] * CT HEAD WO CONTRAST (02/11/2008 18:44 [...] interpretation and agree with the findings. us Mariana Mast MD IMG CT ORDERABLES Final Result * POTASSIUM (02/11/2008 18:12 EDT) Potassium 4.4 3.5 - 5.0 mEq/L [facility] 02/11/2008 18:1 2 EDT 02/11/2008 18:40 EDT us Jodi Christie MD CHEMISTRY & BLOOD GAS ORDERABLE S Final Result Performing Organization Address [facility] de Phone Number [facility] [address] [place] [address] * CO2 (02/11/2008 18:12 EDT) CO2 25 24 - 32 mEq/L [facility] 02/11/2008 18:1 2 EDT 02/11/2008 18:40 EDT Jodi Christie MD CHEMISTRY & BLOOD GAS ORDERABLE S Final Result Performing Organization Address [facility] Co de Phone Number [facility] [address] [place] [address] * CHLORIDE (02/11/2008 18:12 EDT) Chloride 107 96 - 110 mEq/L [facility] 02/11/2008 18:1 2 EDT 02/11/2008 18:40 EDT us Jodi Christie MD CHEMISTRY & BLOOD GAS ORDERABLE S Final Result Performing Organization Address [facility] Co de Phone Number [facility] [address] [place] [address] * (ABNORMAL) SODIUM (02/11/2008 18:12 EDT) Sodium 148(H) 136 - 145 mEq/L [facility] 02/11/2008 18:1 2 EDT 02/11/2008 18:40 EDT us Jodi Christie MD CHEMISTRY & BLOOD GAS ORDERABLE S Final Result Performing Organization Address [facility] Co de Phone Number [facility] [address] [place] [address] * CREATININE (02/11/2008 18:12 EDT) Creatinine 0.90 0.6 - 1.2 mg/dl [facility] GFR, Calculated Age <18 ml/min/1.7 3m2 [facility] 02/11/2008 18:1 2 EDT 02/11/2008 18:40 EDT us Jodi Christie MD CHEMISTRY & BLOOD GAS ORDERABLE S Final Result Performing Organization Address [facility] de Phone Number [facility] [address] [place] [address] * BUN (02/11/2008 18:12 EDT) BUN 13 8 - 21 mg/dl [facility] 02/11/2008 18:1 2 EDT 02/11/2008 18:40 EDT us Jodi Christie MD CHEMISTRY & BLOOD GAS ORDERABLE S Final Result Performing Organization Address [facility] Co de Phone Number [facility] [address] [place] [address] * TESTS ADDED BY PHONE (02/11/2008 18:12 EDT) Tests to be added LYT STAT [facility] Who Called DR CATHY [facility] Location Code B5 [facility] 02/11/2008 18:1 2 EDT 02/11/2008 18:40 EDT Jodi Christie MD CHEMISTRY & BLOOD GAS ORDERABLE S Final Result Performing Organization Address [facility] Co de Phone Number [facility] [address] [place] [address] * (ABNORMAL) AMMONIA (02/11/2008 18:12 EDT) Ammonia 40(H) 9 - 33 umol/L [facility] 02/11/2008 18:1 2 EDT 02/11/2008 18:40 EDT Jodi Christie MD CHEMISTRY & BLOOD GAS ORDERABLE S Final Result Performing Organization Address [facility] de Phone Number [facility] [address] [place] [address] * DIFFERENTIAL (02/11/2008 15:28 EDT) Neutrophils 55.0 % [facility] Lymphocytes 40.0 % [facility] Monocytes 4.0 % [facility] Basophils 1.0 % [facility] ABS Neutrophils 3.06 K/cmm [facility] ABS Lymphs 2.23 K/cmm [facility] ABS Monocytes 0.22 K/cmm [facility] ABS Basophils 0.06 K/cmm [facility] RBC Morphology 1+ Anisocytosis 1+ Poikilocytosis 2+ Microcytes [facility] Type of Diff: Manual [facility] 02/11/2008 15:2 8 EDT 02/11/2008 15:39 EDT Jodi Christie MD HEMATOLOGY & PF4 ORDERABLES Fin al Result Performing Organization Address [facility] Co de Phone Number [facility] [address] [place] [address] * TOTAL & DIRECT BILIRUBIN (02/11/2008 15:28 EDT) Conjugated Bilirubin 0.0 0.0 - 0.3 mg/dl [facility] Unconjugated Bilirubin 0.3 0.1 - 1.1 mg/dl [facility] Bilirubin, Total <0.5 0.0 - 1.4 mg/dl [facility] 02/11/2008 15:2 8 EDT 02/11/2008 15:39 EDT us Jodi Christie MD CHEMISTRY & BLOOD GAS ORDERABLE S Final Result Performing Organization Address [facility] de Phone Number [facility] [address] [place] [address] * AST (02/11/2008 15:28 EDT) AST 42 15 - 46 U/L [facility] 02/11/2008 15:2 8 EDT 02/11/2008 15:39 EDT us Jodi Christie MD CHEMISTRY & BLOOD GAS ORDERABLE S Final Result Performing Organization Address [facility] de Phone Number [facility] [address] [place] [address] * ALT (02/11/2008 15:28 EDT) ALT <11 0 - 45 U/L [facility] 02/11/2008 15:2 8 EDT 02/11/2008 15:39 EDT us Jodi Christie MD CHEMISTRY & BLOOD GAS ORDERABLE S Final Result Performing Organization Address [facility] Co de Phone Number [facility] [address] [place] [address] * ALKALINE PHOSPHATASE (02/11/2008 15:28 EDT) Alkaline Phosphatase 179 65 - 260 U/L [facility] 02/11/2008 15:2 8 EDT 02/11/2008 15:39 EDT us Jodi Christie MD CHEMISTRY & BLOOD GAS ORDERABLE S Final Result Performing Organization Address [facility] Co de Phone Number [facility] [address] [place] [address] * TESTS ADDED BY PHONE (02/11/2008 15:28 EDT) Tests to be added STAT ALT,AST,TDBI L,ALKP [facility] Who Called DR CATHY [facility] Location Code B5 [facility] 02/11/2008 15:2 8 EDT 02/11/2008 15:39 EDT us Jodi Christie MD CHEMISTRY & BLOOD GAS ORDERABLE S Final Result Performing Organization Address [facility]/ZIP Co de Phone Number [facility] [address] [place] [address] * (ABNORMAL) HEMAGRAM (02/11/2008 15:28 EDT) WBC 5.57 4.6 - 11.2 K/cmm [facility] RBC 5.83(H) 4.50 - 5.30 M/cmm [facility] Hemoglobin 15.2 13.0 - 16.0 gm/dl [facility] HCT 44.7 37.0 - 49.0 % [facility] MCV 77(L) 78 - 98 fl [facility] MCH 26.0 pg [facility] MCHC 33.9 gm/dl [facility] PLT 183 156 - 312 K/cmm [facility] RDW-CV 17.0 % [facility] 02/11/2008 15:2 8 EDT 02/11/2008 15:39 EDT us Jodi Christie MD HEMATOLOGY & PF4 ORDERABLES Fin al Result Performing Organization Address [facility]/ZIP Co de Phone Number [facility] [address] [place] [address] * (ABNORMAL) PHOSPHORUS (02/11/2008 15:28 EDT) Phosphorus 4.9(H) 2.7 - 4.7 mg/dl [facility] 02/11/2008 15:2 8 EDT 02/11/2008 15:39 EDT Jodi Christie MD CHEMISTRY & BLOOD GAS ORDERABLE S Final Result Performing Organization Address [facility] Co de Phone Number [facility] [address] [place] [address] * MAGNESIUM (02/11/2008 15:28 EDT) Magnesium 2.0 1.7 - 2.8 mg/dl [facility] 02/11/2008 15:2 8 EDT 02/11/2008 15:39 EDT Jodi Christie MD CHEMISTRY & BLOOD GAS ORDERABLE S Final Result Performing Organization Address [facility] de Phone Number [facility] [address] [place] [address] * CALCIUM (02/11/2008 15:28 EDT) Calcium 9.1 8.5 - 10.5 mg/dl [facility] Calculated Calcium 9.0 8.5 - 10.5 mg/dl [facility] 02/11/2008 15:2 8 EDT 02/11/2008 15:39 EDT Jodi Christie MD CHEMISTRY & BLOOD GAS ORDERABLE S Final Result Performing Organization Address [facility] de Phone Number [facility] [address] [place] [address] * (ABNORMAL) ELECTROLYTES (02/11/2008 15:28 EDT) Sodium 148(H) 136 - 145 mEq/L [facility] Potassium 4.4 3.5 - 5.0 mEq/L [facility] Chloride 111(H) 96 - 110 mEq/L [facility] CO2 21(L) 24 - 32 mEq/L [facility] 02/11/2008 15:2 8 EDT 02/11/2008 15:39 EDT us Jodi Christie MD CHEMISTRY & BLOOD GAS ORDERABLE S Final Result Performing Organization Address [facility] de Phone Number [facility] [address] [place] [address] * GLUCOSE, GLUCOMETER (02/11/2008 15:22 EDT) Glucose, Fingerstick 81 70 - 100 mg/dl [facility] Hvac Controls Technician ID [id number] Test Performed by Nursing Services [facility] 02/11/2008 15:2 2 EDT 02/12/2008 1:19 EDT us Jodi Christie MD CHEMISTRY & BLOOD GAS ORDERABLE S Final Result Performing Organization Address [facility] de Phone Number [facility] [address] [place] [address] * ELECTROLYTES (02/11/2008 6:00 EDT) Sodium 142 136 - 145 mEq/L [facility] Potassium 4.1 3.5 - 5.0 mEq/L [facility] Chloride 103 96 - 110 mEq/L [facility] CO2 26 24 - 32 mEq/L [facility] 02/11/2008 6:00 EDT 02/11/2008 6:15 EDT us Jodi Christie MD CHEMISTRY & BLOOD GAS ORDERABLE S Final Result Performing Organization Address [facility] de Phone Number [facility] [address] [place] [address] * ELECTROLYTES (02/11/2008 2:05 EDT) Sodium 140 136 - 145 mEq/L [facility] Potassium 4.1 3.5 - 5.0 mEq/L [facility] Chloride 104 96 - 110 mEq/L [facility] CO2 24 24 - 32 mEq/L [facility] 02/11/2008 2:05 EDT 02/11/2008 2:32 EDT us Jodi Christie MD CHEMISTRY & BLOOD GAS ORDERABLE S Final Result Performing Organization Address [facility] de Phone Number [facility] [address] [place] [address] * (ABNORMAL) ELECTROLYTES (02/10/2008 21:55 EDT) Sodium 142 136 - 145 mEq/L [facility] Potassium 3.9 3.5 - 5.0 mEq/L [facility] Chloride 110 96 - 110 mEq/L [facility] CO2 22(L) 24 - 32 mEq/L [facility] 02/10/2008 21:5 5 EDT 02/10/2008 22:15 EDT Jodi Christie MD CHEMISTRY & BLOOD GAS ORDERABLE S Final Result Performing Organization Address [facility] de Phone Number [facility] [address] [place] [address] * ELECTROLYTES (02/10/2008 18:15 EDT) Sodium 139 136 - 145 mEq/L [facility] Potassium 4.1 3.5 - 5.0 mEq/L [facility] Chloride 103 96 - 110 mEq/L [facility] CO2 25 24 - 32 mEq/L [facility] 02/10/2008 18:1 5 EDT 02/10/2008 19:10 EDT Jodi Christie MD CHEMISTRY & BLOOD GAS ORDERABLE S Final Result Performing Organization Address [facility] de Phone Number [facility] [address] [place] [address] * ELECTROLYTES (02/10/2008 14:00 EDT) Sodium 136 136 - 145 mEq/L [facility] Potassium 3.6 3.5 - 5.0 mEq/L [facility] Chloride 100 96 - 110 mEq/L [facility] CO2 26 24 - 32 mEq/L [facility] 02/10/2008 14:0 0 EDT 02/10/2008 14:33 EDT Jodi Christie MD CHEMISTRY & BLOOD GAS ORDERABLE S Final Result Performing Organization Address [facility] de Phone Number [facility] [address] [place] [address] * (ABNORMAL) ELECTROLYTES (02/10/2008 10:12 EDT) Sodium 134(L) 136 - 145 mEq/L [facility] Comment:Heparinized plasma. Potassium 4.1 3.5 - 5.0 mEq/L [facility] Comment:Heparinized plasma. Chloride 99 96 - 110 mEq/L [facility] Comment:Heparinized plasma. CO2 25 24 - 32 mEq/L [facility] Comment:Heparinized plasma. 02/10/2008 10:1 2 EDT 02/10/2008 10:12 EDT Jodi Christie MD CHEMISTRY & BLOOD GAS ORDERABLE S Final Result Performing Organization Address [facility] de Phone Number [facility] [address] [place] [address] * GLUCOSE, GLUCOMETER (02/10/2008 8:13 EDT) Glucose, Fingerstick 74 70 - 100 mg/dl [facility] Hvac Controls Technician ID [id number] Test Performed by Nursing Services [facility] 02/10/2008 8:13 EDT 02/10/2008 9:15 EDT Jodi Christie MD CHEMISTRY & BLOOD GAS ORDERABLE S Final Result Performing Organization Address [facility] de Phone Number [facility] [address] [place] [address] * ELECTROLYTES (02/10/2008 8:05 EDT) Sodium Marked hemolysis Specimen unsuitable for analysis. Repeat Requested Heparinized plasma. Credit Issued 136 - 145 mEq/L [facility] Potassium Marked hemolysis Specimen unsuitable [...] EDT Jodi Christie MD CHEMISTRY & BLOOD GAS ORDERABLE S Final Result Performing Organization Address [facility] de Phone Number [facility] [address] [place] [address] * (ABNORMAL) ELECTROLYTES (02/10/2008 4:00 EDT) Sodium 130(L) 136 - 145 mEq/L [facility] Potassium 3.7 3.5 - 5.0 mEq/L [facility] Chloride 95(L) 96 - 110 mEq/L [facility] CO2 23(L) 24 - 32 mEq/L [facility] 02/10/2008 4:00 EDT 02/10/2008 4:29 EDT Jodi Christie MD CHEMISTRY & BLOOD GAS ORDERABLE S Final Result Performing Organization Address [facility] de Phone Number [facility] [address] [place] [address] * (ABNORMAL) ELECTROLYTES (02/09/2008 23:15 EDT) Sodium 129(L) 136 - 145 mEq/L [facility] Potassium 3.6 3.5 - 5.0 mEq/L [facility] Chloride 96 96 - 110 mEq/L [facility] CO2 22(L) 24 - 32 mEq/L [facility] 02/09/2008 23:1 5 EDT 02/09/2008 23:41 EDT Jodi Christie MD CHEMISTRY & BLOOD GAS ORDERABLE S Final Result Performing Organization Address [facility] de Phone Number [facility] [address] [place] [address] * BACTERIAL CULTURE, URINE (02/09/2008 21:15 EDT) Specimen Description Urine [facility] Result No growth [facility] Report Status Final [id number] [facility] 02/09/2008 21:1 5 EDT 02/09/2008 22:47 EDT Jodi Christie MD MICROBIOLOGY - GENERAL ORDERABL ES Final Result Performing Organization Address [facility] Co de Phone Number [facility] [address] [place] [address] * CULTURE IF UA POSITIVE (02/09/2008 21:15 EDT) Culture if Indicated Culture indicated by urinalysis results. [facility] 02/09/2008 21:1 5 EDT 02/09/2008 22:00 EDT us Jodi Christie MD MICROBIOLOGY - GENERAL ORDERABL ES Final Result Performing Organization Address [facility] de Phone Number [facility] [address] [place] [address] * (ABNORMAL) ELECTROLYTES (02/09/2008 21:15 EDT) Sodium 127(L) 136 - 145 mEq/L [facility] Potassium 4.1 3.5 - 5.0 mEq/L [facility] Chloride 89(L) 96 - 110 mEq/L [facility] CO2 25 24 - 32 mEq/L [facility] 02/09/2008 21:1 5 EDT 02/09/2008 21:57 EDT Jodi Christie MD CHEMISTRY & BLOOD GAS ORDERABLE S Final Result Performing Organization Address [facility] Co de Phone Number [facility] [address] [place] [address] * (ABNORMAL) UA WITH MICROSCOPIC (02/09/2008 21:15 EDT) Color, UA Straw [facility] Clarity, UA Hazy [facility] Glucose, UA 1+(A) NORM [facility] Bilirubin, UA Neg NEG [facility] Ketones, UA Neg NEG [facility] Specific [place], Urine <1.005(L) 1.005 - 1.02 [facility] [...] [facility] Crystals, UA Many /HPF [facility] Comment:Amorphous phosphates Hyaline Casts, UA None seen /LPF [facility] Comment Microscopic results are unreliable on urines unrefrig >2hrs or refrig >8hrs. [facility] 02/09/2008 21:1 5 EDT 02/09/2008 22:00 EDT us Jdoi Christie MD URINALYSIS ORDERABLES Final Res ult [facility] [address] [place] [address] * (ABNORMAL) ELECTROLYTES (02/09/2008 18:05 EDT) Sodium 122(LL) 136 - 145 mEq/L [facility] Comment:Sample retested, res ult confirmed Potassium 4.2 3.5 - 5.0 mEq/L [facility] Chloride 88(L) 96 - 110 mEq/L [facility] CO2 26 24 - 32 mEq/L [facility] 02/09/2008 18:0 5 EDT 02/09/2008 18:05 EDT Kris Izquierdo MD CHEMISTRY & BLOOD GAS ORDERABLE S Final Result Performing Organization Address [facility] Co de Phone Number [facility] [address] [place] [address] * GLUCOSE, GLUCOMETER (02/09/2008 17:59 EDT) Glucose, Fingerstick 98 70 - 100 mg/dl [facility] Hvac Controls Technician ID [id number] Test Performed by Nursing Services [facility] 02/09/2008 17:5 9 EDT 02/09/2008 23:28 EDT us Jodi hCristie MD CHEMISTRY & BLOOD GAS ORDERABLE S Final Result Performing Organization Address [facility] de Phone Number [facility] [address] [place] [address] * (ABNORMAL) ELECTROLYTES (02/09/2008 16:10 EDT) Sodium 120(LL) 136 - 145 mEq/L [facility] Comment:Sample retested, res ult confirmed Potassium 3.9 3.5 - 5.0 mEq/L [facility] Chloride 86(L) 96 - 110 mEq/L [facility] CO2 26 24 - 32 mEq/L [facility] 02/09/2008 16:1 0 EDT 02/09/2008 16:10 EDT Kris Izquierdo MD CHEMISTRY & BLOOD GAS ORDERABLE S Final Result Performing Organization Address [facility] Co de Phone Number [facility] [address] [place] [address] * (ABNORMAL) GLUCOSE, GLUCOMETER (02/09/2008 16:06 EDT) Glucose, Fingerstick 105(H) 70 - 100 mg/dl [facility] Hvac Controls Technician ID [id number] Test Performed by Nursing Services [facility] 02/09/2008 16:0 6 EDT 02/09/2008 23:28 EDT us Jodi Christie MD CHEMISTRY & BLOOD GAS ORDERABLE S Final Result Performing Organization Address [facility] Phone Number [facility] [address] [place] [address] * (ABNORMAL) ELECTROLYTES (02/09/2008 14:09 EDT) Sodium 121(LL) 136 - 145 mEq/L [facility] Comment:Sample retested, res ult confirmed Potassium 4.6 3.5 - 5.0 mEq/L [facility] Chloride 85(L) 96 - 110 mEq/L [facility] CO2 25 24 - 32 mEq/L [facility] 02/09/2008 14:0 9 EDT 02/09/2008 14:09 EDT Kris Izquierdo MD CHEMISTRY & BLOOD GAS ORDERABLE S Final Result Performing Organization Address [facility] Phone Number [facility] [address] [place] [address] * (ABNORMAL) GLUCOSE, GLUCOMETER (02/09/2008 14:01 EDT) Glucose, Fingerstick 104(H) 70 - 100 mg/dl [facility] H[employer] Controls Technician ID [id number] Test Performed by Nursing Services [facility] 02/09/2008 14:0 1 EDT 02/09/2008 23:28 EDT us Jodi Christie MD CHEMISTRY & BLOOD GAS ORDERABLE S Final Result Performing Organization Address [facility] de Phone Number [facility] [address] [place] [address] * OSMOLALITY, URINE (02/09/2008 13:37 EDT) Osmolality, Ur 406 MOS/KG [facility] 02/09/2008 13:3 7 EDT 02/09/2008 13:37 EDT us Kris Izquierod MD URINALYSIS ORDERABLES Final Res ult Performing Organization Address [facility] Co de Phone Number [facility] [address] [place] [address] * SODIUM, URINE RANDOM (02/09/2008 13:37 EDT) Sodium, Ur 91.0 mEq/L [facility] 02/09/2008 13:3 7 EDT 02/09/2008 13:37 EDT Kris Izquierdo MD URINALYSIS ORDERABLES Final Res ult Performing Organization Address [facility] de Phone Number [facility] [address] [place] [address] * (ABNORMAL) URINALYSIS, CHEMICAL (02/09/2008 13:37 EDT) Color, UA Straw [facility] Clarity, UA Hazy [facility] Glucose, UA Norm NORM [facility] Bilirubin, UA Neg NEG [facility] Ketones, UA Neg NEG [facility] Specific [place], Urine 1.015 1.005 - 1.02 [facility] Blood, UA Mod(A) NEG [facility] pH, UA 7.0 5.0 - 9.0 [facility] Protein, UA Neg NEG [facility] Urobilinogen, UA Norm NORM mg/dL [facility] Nitrite, UA Neg NEG [facility] Leuk Esterase Trace(A) NEG [facility] Comment Small sample, less than 12 ml received. [facility] 02/09/2008 13:3 7 EDT 02/09/2008 13:37 EDT Kris Izquierdo MD URINALYSIS ORDERABLES Final Res ult Performing Organization Address [facility] Co de Phone Number [facility] [address] [place] [address] * URINE MICROSCOPIC (02/09/2008 13:37 EDT) WBC, [...] LAB Crystals, UA None seen /HPF [facility] Hyaline Casts, UA Rare Hyaline /LPF [facility] Comment Microscopic results are unreliable on urines unrefrig >2hrs or refrig >8hrs. [facility] Mucus, UA Present [facility] Comment Amorphous material present [facility] 02/09/2008 13:3 7 EDT 02/09/2008 13:37 EDT us Kris Izquierdo MD URINALYSIS ORDERABLES Final Res ult Performing Organization Address [facility] Co de Phone Number [facility] [address] [place] [address] * (ABNORMAL) T4 FREE (02/09/2008 12:06 EDT) Free T4 0.6(L) 0.8 - 1.5 ng/dL [facility] 02/09/2008 12:0 6 EDT 02/09/2008 12:06 EDT us Kris Izquierdo MD CHEMISTRY & BLOOD GAS ORDERABLE S Final Result Performing Organization Address [facility] Co de Phone Number [facility] [address] [place] [address] * TESTS ADDED BY PHONE (02/09/2008 12:06 EDT) Tests to be added FT4 [facility] Who Called KAYLI FOR DR TONIE [facility] Location Code M3 [facility] 02/09/2008 12:0 6 EDT 02/09/2008 12:06 EDT Kris Izquierdo MD CHEMISTRY & BLOOD GAS ORDERABLE S Final Result Performing Organization Address [facility] Co de Phone Number [facility] [address] [place] [address] * (ABNORMAL) ELECTROLYTES (02/09/2008 12:06 EDT) Sodium 120(LL) 136 - 145 mEq/L [facility] Comment:Sample retested, res ult confirmed Potassium 4.4 3.5 - 5.0 mEq/L [facility] Chloride 87(L) 96 - 110 mEq/L [facility] CO2 24 24 - 32 mEq/L [facility] 02/09/2008 12:0 6 EDT 02/09/2008 12:06 EDT us Kris Izquierdo MD CHEMISTRY & BLOOD GAS ORDERABLE S Final Result Performing Organization Address [facility] de Phone Number [facility] [address] [place] [address] * (ABNORMAL) GLUCOSE, GLUCOMETER (02/09/2008 11:59 EDT) Glucose, Fingerstick 102(H) 70 - 100 mg/dl [facility] Hvac Controls Technician ID [id number] Test Performed by Nursing Services [facility] 02/09/2008 11:5 9 EDT 02/09/2008 23:28 EDT us Jodi Christie MD CHEMISTRY & BLOOD GAS ORDERABLE S Final Result Performing Organization Address [facility] Co de Phone Number [facility] [address] [place] [address] * GLUCOSE, GLUCOMETER (02/09/2008 10:09 EDT) Glucose, Fingerstick 82 70 - 100 mg/dl [facility] Hvac Controls Technician ID [id number] Test Performed by Nursing Services [facility] 02/09/2008 10:0 9 EDT 02/09/2008 23:28 EDT us Jodi Christie MD CHEMISTRY & BLOOD GAS ORDERABLE S Final Result Performing Organization Address [facility] Co de Phone Number [facility] [address] [place] [address] * (ABNORMAL) ELECTROLYTES (02/09/2008 9:49 EDT) Sodium 120(LL) 136 - 145 mEq/L [facility] Comment:Sample retested, res ult confirmed Potassium 4.4 3.5 - 5.0 mEq/L [facility] Chloride 85(L) 96 - 110 mEq/L [facility] CO2 25 24 - 32 mEq/L [facility] 02/09/2008 9:49 EDT 02/09/2008 10:20 EDT Kris Izquierdo MD CHEMISTRY & BLOOD GAS ORDERABLE S Final Result Performing Organization Address [facility] de Phone Number [facility] [address] [place] [address] * (ABNORMAL) ELECTROLYTES (02/09/2008 8:09 EDT) Sodium 119(LL) 136 - 145 mEq/L [facility] Comment:Sample retested, res ult confirmed Potassium 4.0 3.5 - 5.0 mEq/L [facility] Chloride 87(L) 96 - 110 mEq/L [facility] Comment:Sample retested, res ult confirmed CO2 24 24 - 32 mEq/L [facility] 02/09/2008 8:09 EDT 02/09/2008 8:09 EDT Kris Izquierdo MD CHEMISTRY & BLOOD GAS ORDERABLE S Final Result Performing Organization Address [facility] Co de Phone Number [facility] [address] [place] [address] * GLUCOSE, GLUCOMETER (02/09/2008 8:08 EDT) Glucose, Fingerstick 85 70 - 100 mg/dl [facility] Hvac Controls Technician ID [id number] Test Performed by Nursing Services [facility] 02/09/2008 8:08 EDT 02/09/2008 23:28 EDT us Jodi Christie MD CHEMISTRY & BLOOD GAS ORDERABLE S Final Result Performing Organization Address [facility] de Phone Number [facility] [address] [place] [address] * (ABNORMAL) BLOOD GAS, G3 ISTAT (02/09/2008 8:08 EDT) pH, i-STAT 7.42 7.35 - 7.45 [facility] pCO2, i-STAT 34(L) 35 - 45 mmHg [facility] pO2, i-STAT 43(L) 85 - 100 mmHg [facility] TCO2, i-STAT 23 mEq/L [facility] O2 Saturation 86 % FLEMARSHA STEVENS [facility] Base Deficit 3 [facility]MARSHAE [facility] Temperature 34.1 C [facility] FIO2 21 [facility] Sample Type VENOUS [facility] table operator ID [id number] Test Performed by Respiratory [facility] 02/09/2008 8:08 EDT 02/09/2008 8:13 EDT us Kris Izquierdo MD CHEMISTRY & BLOOD GAS ORDERABLE S Final Result Performing Organization Address [facility] de Phone Number [facility] [address] [place] [address] * (ABNORMAL) ELECTROLYTES (02/09/2008 6:55 EDT) Sodium 128(L) 136 - 145 mEq/L [facility] Comment:Sample retested, res ult confirmed Potassium 2.1(LL) 3.5 - 5.0 mEq/L [facility] Comment:Sample retested, res ult confirmed Chloride 109 96 - 110 mEq/L [facility] Comment:Sample retested, res ult confirmed CO2 16(L) 24 - 32 mEq/L [facility] Comment:Sample retested, res ult confirmed 02/09/2008 6:55 EDT 02/09/2008 6:58 EDT us Kris Izquierdo MD CHEMISTRY & BLOOD GAS ORDERABLE S Final Result Performing Organization Address [facility]ZIP Co de Phone Number [facility] [address] [place] [address] * (ABNORMAL) BLOOD GAS, G3 ISTAT (02/09/2008 [...] LAB Sample Type NOT GIVEN [facility] [place] [id number] Test performed by Chemistry [facility] 02/09/2008 5:35 EDT 02/09/2008 5:43 EDT Kris Izquierdo MD CHEMISTRY & BLOOD GAS ORDERABLE S Final Result Performing Organization Address [facility] Co de Phone Number [facility] [address] [place] [address] * MRSA MOLECULAR DETECTION (02/09/2008 5:18 EDT) Pathologist [facility] Specimen Description Nasal [facility] Result NEGATIVE for Methicillin Resistant Staphylococcus aureus DNA by PCR. [facility] Report Status Final [id number] [facility] 02/09/2008 5:18 EDT 02/09/2008 7:21 EDT Kris Izquierdo MD MICROBIOLOGY - GENERAL ORDERABL ES Final Result Performing Organization Address [facility]ZIP Co de Phone Number [facility] [address] [place] [address] * GLUCOSE, SERUM (02/09/2008 5:15 EDT) Glucose, Serum 76 70 - 100 mg/dl [facility] 02/09/2008 5:15 EDT 02/09/2008 5:22 EDT Kris Izquierdo MD CHEMISTRY & BLOOD GAS ORDERABLE S Final Result Performing Organization Address [facility]/ZIP Co de Phone Number [facility] [address] [place] [address] * (ABNORMAL) CREATININE (02/09/2008 5:15 EDT) Creatinine 0.57(L) 0.6 - 1.2 mg/dl [facility] GFR, Calculated Age <18 ml/min/1.7 3m2 [facility] 02/09/2008 5:15 EDT 02/09/2008 5:22 EDT us Kris Izquierdo MD CHEMISTRY & BLOOD GAS ORDERABLE S Final Result Performing Organization Address [facility] Co de Phone Number [facility] [address] [place] [address] * (ABNORMAL) BUN (02/09/2008 5:15 EDT) BUN 7(L) 8 - 21 mg/dl [facility] 02/09/2008 5:15 EDT 02/09/2008 5:22 EDT us Kris Izquierdo MD CHEMISTRY & BLOOD GAS ORDERABLE S Final Result Performing Organization Address [facility] de Phone Number [facility] [address] [place] [address] * PHOSPHORUS (02/09/2008 5:15 EDT) Phosphorus 3.3 2.7 - 4.7 mg/dl [facility] 02/09/2008 5:15 EDT 02/09/2008 5:22 EDT us Kris Izquierdo MD CHEMISTRY & BLOOD GAS ORDERABLE S Final Result Performing Organization Address [facility] Co de Phone Number [facility] [address] [place] [address] * (ABNORMAL) MAGNESIUM (02/09/2008 5:15 EDT) Magnesium 1.6(L) 1.7 - 2.8 mg/dl [facility] 02/09/2008 5:15 EDT 02/09/2008 5:22 EDT Kirs Izquierdo MD CHEMISTRY & BLOOD GAS ORDERABLE S Final Result Performing Organization Address [facility] de Phone Number [facility] [address] [place] [address] * (ABNORMAL) ELECTROLYTES (02/09/2008 5:15 EDT) Sodium 120(LL) 136 - 145 mEq/L [facility] Comment:Sample retested, res ult confirmed Potassium 4.1 3.5 - 5.0 mEq/L [facility] Chloride 83(L) 96 - 110 mEq/L [facility] CO2 26 24 - 32 mEq/L [facility] 02/09/2008 5:15 EDT 02/09/2008 5:22 EDT Kris Izquierdo MD CHEMISTRY & BLOOD GAS ORDERABLE S Final Result Performing Organization Address [facility] de Phone Number [facility] [address] [place] [address] * CULTURE IF UA POSITIVE (02/09/2008 5:15 EDT) Culture if Indicated Culture not indicated by urinalysis results. [facility] 02/09/2008 5:15 EDT 02/09/2008 5:24 EDT Kris Izquierdo MD MICROBIOLOGY - GENERAL ORDERABL ES Final Result Performing Organization Address [facility] Co de Phone Number [facility] [address] [place] [address] * UA REFLEX (02/09/2008 5:15 EDT) UA Billing Microscopic not indicated. [facility] 02/09/2008 5:15 EDT 02/09/2008 5:24 EDT Kris Izquierdo MD URINALYSIS ORDERABLES Final Res ult Performing Organization Address [facility] de Phone Number [facility] [address] [place] [address] * (ABNORMAL) URINALYSIS, CHEMICAL (02/09/2008 5:15 EDT) Color, UA Yellow [facility] Clarity, UA Clear [facility] Glucose, UA Norm NORM [facility] Bilirubin, UA Neg NEG [facility] Ketones, UA Neg NEG [facility] Specific [place], Urine >1.030(H) 1.005 - 1.02 [facility] Blood, UA Neg NEG [facility] pH, UA 6.0 5.0 - 9.0 [facility] Protein, UA Neg NEG [facility] Urobilinogen, UA Norm NORM mg/dL [facility] Nitrite, UA Neg NEG [facility] Leuk Esterase Neg NEG [facility] Refractometer SG,Urine 1.015 1.005 - 1.02 [facility] 02/09/2008 5:15 EDT 02/09/2008 5:24 EDT us Kris Izquierdo MD URINALYSIS ORDERABLES Final Res ult Performing Organization Address [facility] [facility] de Phone Number [facility] [address] [place] [address] * GLUCOSE, GLUCOMETER (02/09/2008 0:01 EDT) Glucose, Fingerstick 96 70 - 100 mg/dl [facility] Hvac Controls Technician ID [id number] Test Performed by Nursing Services [facility] 02/09/2008 0:01 EDT 02/09/2008 19:26 EDT us Jodi Christie MD CHEMISTRY & BLOOD GAS ORDERABLE S Final Result Performing Organization Address [facility] Co de Phone Number [facility] [address] [place] [address] documented in this encounter Visit Diagnoses Not on filedocumented in this encounter
--- OUTSIDE RECORDS SUMMARY | 2024-06-28 13:55 | XMS_ITS | Encounter Summary ---
Author Organization [facility] Address [address] [place] [address] Care Team Providers Care Medical Facilities Section Director Name Role Phone Yan Demarco MD Primary Care Provider Corin Skinner MD Primary Care Provider [phone] Encounter Details Date Type Department Care Team (Late st Contact Info) Description 02/08/2008 Office Visit [facility] - [facility] conversion [address] [place] [address] Yossi Murphy MD 111 [facility], Level 1 [place] [address] Social History Tobacco Use Types [...] At pt's family's request, PICU attending at [facility] notified. PICU attending agreed with plan of [...] endocrine), peds resident, PICU attending physician at [facility]. Reviewed test results. Agreed upon treatment plan. [...] qd, calcium, vitamin d, niacin 1000mg tid, ihjaxified092iv hs, hydrocortisone 5mg -2tabs am, 1 tab [...] --2237 Bryant Baker R.N.. NURSING PROGRESS NOTES (hazmat truck driver at bedside.). --2236 Bryant Baker R.N. (FS [...] 14. O2 saturation: 100%. Roberson-Carter pain scale: 10/14. --0134 Manuel Bejarano R.N. HYDROCORTISONE 100 mg [...] was locked and in the lowest position.). --033 Manuel Bejarano R.N.. IV / I&O Flowsheet 4887 late entry -. IV Site #1. IV access: left hand. IV started in ED with 20g angiocath using aseptic technique; one attempt. Saline lock placed; (iv started and blood drawn by hazmat truck driver.). --0033 Bryant Baker R.N. IV Site #1. IV fluids started. IV bag #1; 300 mL bolus 3% NaClat 100 mL/hr. --022 Manuel Bejarano R.N.. DISPOSITION / DISCHARGE (Transported to on environmental monitoring technician by this RN and turned over to care of M3 nursing staff.). --0453 Manuel Bejarano R.N.. Clara Chung R.N., R.N. Locked/Released at 02/09/2008 7:29 by Manuel Bejarano R.N. documented in this encounter Plan of Treatment Upcoming Encounters Date Type Department Care Team (Late st Contact Info) Description 07/06/2024 13:40 EST Office Visit [facility] Endocrinology - [facility] [address] [place] [address] Wilder Zaidi, 62 [facility] [address] [place] [address] 09/09/2024 10:20 EST Office Visit [facility] Endocrinology - [facility] [address] [place] [address] Day Littlejohn MD PhD 62 [facility] [address] [place] [address] documented as of this encounter Visit Diagnoses Not on filedocumented in this encounter Care Teams Medical Facilities Section Director Relationship Specialty Start Date End Date Yan Demarco MD [address] [place] [address] PCP - General 08/22/09 02/20/10 Corin Skinner MD [address] [place] [phone] PCP - General 10/24/08 08/21/09 documented as of this encounter
--- OUTSIDE RECORDS SUMMARY | 2024-06-28 13:55 | XMS_ITS | Encounter Summary ---
Author Organization [facility] Address [address] [place] [address] Care Team Providers Care Outdoor Recreation Specialist Name Role Phone Corin Skinner MD Primary Care Provider [phone] Encounter Details Date Type Department Care Team (Late st Contact Info) Description 02/11/2008 Before PRISM Converted Visit (Maple) [facility] - Maple conversion [address] [place] [address] Jose Lopez MD PhD 111 [facility]. Level 5 [place] [phone] Social History Tobacco Use Types Packs/Day Years [...] Jose Lopez MD,PHD ABPN Certified in Neurology [place] Board Clinical Neurophysiology - Jose Lopez MD,PHD P - LBR Job ID: [id number] Document ID: [id number] cc: MD Yan Walker MD lbr Job ID: [id number] Document ID: [id number] cc: MD Yan Walker MD documented in this encounter Plan of Treatment Upcoming Encounters Date Type Department Care Team (Late st Contact Info) Description 07/06/2024 13:40 EST Office Visit [facility] Endocrinology - [facility] [address] [place] [address] Wilder Zaidi, DO 62 [facility] [address] [place] [address] 09/09/2024 10:20 EST Office Visit [facility] Endocrinology - [facility] [address] [place] [address] Day Littlejohn MD PhD 62 [facility] [address] [place] [address] documented as of this encounter Visit Diagnoses Not on filedocumented in this encounter Care Teams Outdoor Recreation Specialist Relationship Specialty Start Date End Date Corin Skinner MD [address] [place] [phone] PCP - General 10/24/08 08/21/09 documented as of this encounter
--- OUTSIDE RECORDS SUMMARY | 2024-06-28 13:56 | XMS_ITS | Encounter Summary ---
Author Organization [facility] Address [address] [place] [address] Care Team Providers Care Joint Sealer Name Role Phone Unavailable Primary Care Provider Unavailabl e Encounter Details Date Type Department Care Team (Late st Contact Info) Description 05/23/2006 7:52 EST - 05/23/2006 11:59 EST Hospital Encounter [facility] Perioperative Services- [facility] [address] [place], [place] [address] Jason Olea MD 111 [facility], Level 5 [place] [address] Marvin Perez MD [address] [place] [phone] Discharge Disposition: Home or Self Care [...] Office Visit [facility] Endocrinology - [facility] [address] [place], [place] [phone] Wilder Zaidi, 62 [facility] [address] [place] [address] 09/09/2024 10:20 EST Office Visit [facility] Endocrinology - [facility] [address] [place] [address] Day Littlejohn MD PhD 62 [facility] [address] [place] [address] documented as of this encounter [...] void ??is seen in the intracranial vessels. [id number] D: ??05/24/2006 11:09 T: ??05/26/2006 17:31 Addendum [...] void is seen in the intracranial vessels. [id number] Addendum Begins MRI of the brain was done with and without IV contrast. Addendum Ends us Jason Olea MD IMG MRI ORDERABLES Final Re sult documented in this encounter Visit Diagnoses Not on filedocumented in this encounter
--- OUTSIDE RECORDS SUMMARY | 2024-06-28 13:56 | XMS_ITS | Encounter Summary ---
Author Organization [facility] Address [address] [place] [address] Care Team Providers Care Deck Lid Fitter Name Role Phone Yan Demarco MD Primary Care Provider [phone] Corin Skinner MD Primary Care Provider [phone] Akil Serrano MD Primary Care Provider [phone] Yossi Torres MD Primary Care Provider [phone] Emilee Cody MD Primary Care Provider + Ren Vaz MD Primary Care Provider [phone] Encounter Details Date Type Department Care Team (Late st Contact Info) Description 08/13/2005 Before PRISM Converted Visit (Maple) [facility] Pediatric [facility] - [facility] [address] [place], [place] [address] Hilton Álvarez MD [address] [place] [phone] Social History Tobacco Use Types Packs/Day Years Used Date Smoking Tobacco: Never Assessed Sex and Gender Information Value Date Recorded Sex Assigned at Not on file Legal Sex Male 18:35 EST Gender Identity Not on file Sexual Orientation Not on file documented as of this encounter Progress Notes * Ricki, Conv Security Technician - 09/06/20092034 EST DIVISION OF NEUROSURGERY PROGRESS/FOLLOWUP NOTE August 13, 2005 Kris Drew MD [address] [place] [address] [place] [address] Drew: I had the pleasure of following up Miguel Angel Burgos in the pediatric neurosurgery clinic today with hismother, the social science analyst from your institution, and two of his care attendants at [facility]. Since I saw Miguel Angel last, he has made large gains. It is unclear how well he sees at this point. He may have some light perception or not but intermittently it seems like from thi ngs he said to his caregivers that he [...] Hilton Álvarez MD 08/20/2005 13:44 Carolina Tang ProfessorRockingham [facility] HospitalDivision of Neurological SurgeryHilton Álvarez MD Hilton Álvarez MD Geospatial Extractor Analysis [facility] Division of Neurological Surgery - Hilton Álvarez MD P - bb Job ID: [id number] Document ID: [id number] cc: Kris Drew MD documented in this encounter Plan of Treatment Upcoming Encounters Date Type Department Care Team (Late st Contact Info) Description 07/06/2024 13:40 EST Office Visit [facility] Endocrinology - [facility] [address] [place] [address] Wilder Zaidi, DO 62 [facility] [address] [place] [phone] 09/09/2024 10:20 EST Office Visit [facility] Endocrinology - [address] [address] Day Littlejohn MD PhD [address] [place] [address] [place] [phone] documented as of this encounter Procedures Procedure Name Priority Date/Time Associated Diagnosis Comments MR HEAD W/WO CONTRAST 08/13/2005 13:23 EST documented in this encounter Results * MR HEAD W/WO CONTRAST (08/13/2005 13:23 EST) Anatomical Region Laterality Modality Other 08/13/2005 13:2 3 EST Narrative 02/03/2009 5:03 EDT PATIENT NEEDS TO BE SENT TO [facility] FOR ANESTHESIA HEADACHES, S/P CRANIOPHOYRGRAM RESECTION 10/12/04,CVA'S [...] 02/03/2009 PATIENT NEEDS TO BE SENT TO [facility] FOR ANESTHESIA HEADACHES, S/P CRANIOPHOYRGRAM RESECTION 10/12/04,CVA'S [...] interpretation and agree with the findings. us Hilton Álvarez MD IMG MRI ORDERABLES Final R esult documented in this encounter Visit Diagnoses Not on filedocumented in this encounter Care Teams Deck Lid Fitter Relationship Specialty Start Date End Date Yan Demarco MD [address] [place] [address] PCP - General 08/22/09 02/20/10 Corin Skinner MD [address] [place] [phone] PCP - General 10/24/08 08/21/09 Akil Serrano MD [address] [phone] PCP - General 02/21/10 04/16/11 Yossi Torres MD [address] [place] [phone] PCP - General 04/17/11 03/14/16 Emilee Cody MD [address] [place] [phone] PCP - General 03/15/16 09/29/18 Ren Vaz MD [address] [place] [address] [place], [place] [phone] PCP - General 09/30/18 documented as of this encounter
--- OUTSIDE RECORDS SUMMARY | 2024-06-28 13:56 | XMS_ITS | Encounter Summary ---
Author Organization [facility] Address [address] [place] [address] Care Team Providers Care Spark Tester Name Role Phone Yan Demarco MD Primary Care Provider [phone] Corin Skinner MD Primary Care Provider Akil Serrano MD Primary Care Provider [phone] Encounter Details Date Type Department Care Team (Late st Contact Info) Description 11/27/2007 Results Only [facility] conversion [address] [place] [address] Emergency, MD Diya Social History Tobacco Use [...] Visit [facility] Endocrinology - [facility] [address] [place], [place] [phone] Wilder Zaidi, 62 [facility] [address] [place] [address] 09/09/2024 10:20 EST Office Visit [facility] Endocrinology - [facility] [address] [place] [address] Day Littlejohn MD PhD [address] [place] [address] [address] documented as of this encounter [...] * (ABNORMAL) GLUCOSE, SERUM (11/27/2007 18:20 EDT) Glucose, Serum 64(L) 70 - 100 mg/dl [facility] 11/27/2007 18:2 0 EDT 11/27/2007 18:51 EDT us Default Emergency CHEMISTRY & BLOOD GAS ORDER LYNDSEY Final Result [facility] [address] [place] [address] * (ABNORMAL) ELECTROLYTES (11/27/2007 18:20 EDT) Sodium 129(L) 136 - 145 mEq/L [facility] Potassium 4.7 3.5 - 5.0 mEq/L [facility] Chloride 92(L) 96 - 110 mEq/L [facility] CO2 27 24 - 32 mEq/L [facility] 11/27/2007 18:2 0 EDT 11/27/2007 18:51 EDT us Default Emergency MD CHEMISTRY & BLOOD GAS ORDER LYNDSEY Final Result Performing Organization Address [facility] de Phone Number [facility] [address] [place] [address] * T4 FREE (11/27/2007 18:20 EDT) Free T4 0.9 0.8 - 1.5 ng/dL [facility] 11/27/2007 18:2 0 EDT 11/27/2007 18:51 EDT us Default Emergency MD CHEMISTRY & BLOOD GAS ORDER LYNDSEY Final Result Performing Organization Address [facility] de Phone Number [facility] [address] [place] [address] * CREATININE (11/27/2007 18:20 EDT) Creatinine 0.60 0.6 - 1.2 mg/dl [facility] GFR, Calculated Age <18 ml/min/1.7 3m2 [facility] 11/27/2007 18:2 0 EDT 11/27/2007 18:51 EDT us Default Emergency MD CHEMISTRY & BLOOD GAS ORDER LYNDSEY Final Result Performing Organization Address [facility] de Phone Number [facility] [address] [place] [address] * (ABNORMAL) HEMAGRAM AND DIFFERENTIAL (11/27/2007 18:20 EDT) WBC 4.74 4.6 - 11.2 K/cmm [facility] RBC 5.57(H) 4.50 - 5.30 M/cmm [facility] Hemoglobin 14.2 13.0 - 16.0 [...] % [facility] Monocytes 12.0 % [facility] ABS Neutrophils 2.13 K/cmm [facility] ABS Lymphs 2.04 K/cmm [facility] ABS Monocytes 0.57 K/cmm [facility] RBC Morphology 1+ Anisocytosis 1+ Microcytes 1+ Poikilocytosis 1+ Ovalocytes [facility] Type of Diff: Manual [facility] 11/27/2007 18:2 0 EDT 11/27/2007 18:51 EDT us Default Emergency MD PACKAGES & DNA PROBE ORDERA BLES Final Result Performing Organization Address [facility] Co de Phone Number [facility] [address] [place] [address] * BUN (11/27/2007 18:20 EDT) BUN 9 8 - 21 mg/dl [facility] 11/27/2007 18:2 0 EDT 11/27/2007 18:51 EDT us Default Emergency MD CHEMISTRY & BLOOD GAS ORDER LYNDSEY Final Result Performing Organization Address [facility] Co de Phone Number [facility] [address] [place] [address] * TESTS ADDED BY PHONE (11/27/2007 18:20 EDT) Tests to be added STAT SGL [facility] Who Called [facility] Location Code Emergency Department [facility] 11/27/2007 18:2 0 EDT 11/27/2007 18:51 EDT us Default Emergency MD CHEMISTRY & BLOOD GAS ORDER LYNDSEY Final Result Performing Organization Address City/[facility] Co de Phone Number [facility] [address] [place] [address] * TESTS ADDED BY PHONE (11/27/2007 18:20 EDT) Tests to be added FT4 [facility] Who Called [facility] Location Code Emergency Department [facility] 11/27/2007 18:2 0 EDT 11/27/2007 18:51 EDT us Default Emergency MD CHEMISTRY & BLOOD GAS ORDER LYNDSEY Final Result [facility] [address] [place] [address] documented in this encounter Visit Diagnoses Not on filedocumented in this encounter Care Teams Spark Tester Relationship Specialty Start Date End Date Yan Demarco MD [address] [place] [address] PCP - General 08/22/09 02/20/10 Corin Skinner MD [address] [place] [phone] PCP - General 10/24/08 08/21/09 Akil Serrano MD [address] [place] [address] PCP - General 02/21/10 04/16/11 documented as of this encounter
--- OUTSIDE RECORDS SUMMARY | 2024-06-28 13:56 | XMS_ITS | Encounter Summary ---
Author Organization [facility] Address [address] [place] [address] Care Team Providers Care Panel Coverer Name Role Phone Unavailable Primary Care Provider Unavailabl e Encounter Details Date Type Department Care Team (Late st Contact Info) Description 08/19/2007 9:10 EST Hospital Encounter [facility] [place] [address] [place] [address] [facility] [address] [place] [phone] Social History Tobacco Use Types Packs/Day Years [...] EST Office Visit [facility] Endocrinology - [facility] [address] [facility] [place] [address] Wilder Zaidi, DO 62 [facility] [address] [place] [address] 09/09/2024 10:20 EST Office Visit [facility] Endocrinology - [facility] [address] [place] [address] Day Littlejohn MD PhD [address] [address] documented as of this encounter Visit Diagnoses Not on filedocumented in this encounter
--- OUTSIDE RECORDS SUMMARY | 2024-06-28 13:56 | XMS_ITS | Encounter Summary ---
Author Organization [facility] Address [address] [place] [address] Care Team Providers Care Pulp Piler Name Role Phone Corin Skinner MD Primary Care Provider Encounter Details Date Type Department Care Team (Late st Contact Info) Description 08/13/2006 Before PRISM Converted Visit (Maple) [facility] - Maple conversion [address] [place] [address] Skyler Edwards [facility] [address] [place] [phone] Social History Tobacco Use Types Packs/Day Years Used Date Smoking Tobacco: Never Assessed Sex and Gender Information Value Date Recorded Sex Assigned at Not on file Legal Sex Male 18:35 EST Gender Identity Not on file Sexual Orientation Not on file documented as of this encounter Progress Notes * Skyler Edwards MD - 07/13/2009 0325 EST PROGRESS/FOLLOWUP NOTE - 08/13/2006 Kris Drew MD [address] [place] [address] [place] [address] 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 His foster mother, Krissy Wilson, and electric sign wirer, Edel Jones, accompanied him to the visit. Miguel Angel is now 16 years and2 months old. Miguel Angel was discharged from [facility] in June 2006, and has been in this foster home since that time. While father reportedly still wants to take careof Miguel Angel, his house will need modifications in order to accommodate Miguel Angel's wheelchair. In the interim, he is with his new foster family indefinitely. Miguel Angel is attending [employer] for twohours per day. He receives [...] reportedly been stable since his discharge from [facility]. While she does not measure [...] medications. I did receive a call from [facility] in April 2006, at which [...] exam. I have requested a repeat free H9lhile with his next blood draw. He will [...] by Skyler Edwards MD 08/28/2006 13:32 Lincoln Edwards, [facility] [id number] James Zimakas, MD Skyler Edwards MD Division of Pediatric Endocrinology [phone] - Von Edwards MD P - O1 Job ID: [id number] Document ID: [id number] cc: Kris Drew MD documented in this encounter Plan of Treatment Upcoming Encounters Date Type Department Care Team (Late st Contact Info) Description 07/06/2024 13:40 EST Office Visit [facility] Endocrinology - [address] [address] Wilder Zaidi, DO [address] [place] [address] 09/09/2024 10:20 EST Office Visit [facility] Endocrinology [address] [address] Day Littlejohn MD PhD [address] [place] [address] documented as of this encounter Visit Diagnoses Not on filedocumented in this encounter Care Teams Pulp Piler Relationship Specialty Start Date End Date Corin Skinner MD [address] [place] [phone] PCP - General 10/24/08 08/21/09 documented as of this encounter
--- OUTSIDE RECORDS SUMMARY | 2024-06-28 13:56 | XMS_ITS | Encounter Summary ---
Author Organization [facility] Address [address] [place] [address] Care Team Providers Care Computer Operations Technician Name Role Phone Unavailable Primary Care Provider Unavailabl e Encounter Details Date Type Department Care Team (Late st Contact Info) Description 02/06/2006 11:26 EDT Hospital Encounter [facility] [address] [place] [address] [facility] [address] [place] [phone] Social History Tobacco Use Types Packs/Day Years [...] Info) Description 07/06/2024 13:40 EST Office Visit [facility] Endocrinology - [facility] [address] [facility] [address] Wilder Zaidi, DO 62 [facility] [address] [place] [address] 09/09/2024 10:20 EST Office Visit [facility] Endocrinology - [facility] [address] [place] [address] Day Littlejohn MD PhD [address] [place] [phone] documented as of this encounter Visit Diagnoses Not on filedocumented in this encounter
--- OUTSIDE RECORDS SUMMARY | 2024-06-28 13:56 | XMS_ITS | Encounter Summary ---
Author Organization [facility] Address [address] [place] [address] Care Team Providers Care Global Safety Officer Name Role Phone Corin Skinner MD Primary Care Provider [phone] Encounter Details Date Type Department Care Team (Late st Contact Info) Description 02/11/2007 Before PRISM Converted Visit (Maple) [facility] - Maple conversion [address] [place] [address] Skyler Edwards [facility] [address] [place] [phone] Social History Tobacco Use Types Packs/Day Years [...] - February 11, 2007 Ren Lynch MD [address] [place] [address] Lynch: I had the pleasure [...] by Skyler Edwards MD 02/13/2007 14:11 Lincoln Edwards [facility] [id number] James Zimakas, [facility] Von Edwards, [facility] of Pediatric [id number] Skyler Edwards MD Division of Pediatric Endocrinology [phone] Pamerrick Edwards MD P - YASMINE Job ID: [id number] Doc ID: [id number] cc: Ren Lynch MD - Skyler Edwards MD P - yasmine Job ID: [id number] Doc ID: [id number] cc: MD Kris Ricks MD documented in this encounter Plan of Treatment Upcoming Encounters Date Type Department Care Team (Late st Contact Info) Description 07/06/2024 13:40 EST Office Visit [facility] Endocrinology [address] [address] Wilder Zaidi, [address] [place] [phone] 09/09/2024 10:20 EST Office Visit [address] [address] Day Littlejohn MD PhD [address] [place] [phone] documented as of this encounter Visit Diagnoses Not on filedocumented in this encounter Care Teams Global Safety Officer Relationship Specialty Start Date End Date Corin Skinner MD [address] [place] [phone] PCP - General 10/24/08 08/21/09 documented as of this encounter
--- OUTSIDE RECORDS SUMMARY | 2024-06-28 13:56 | XMS_ITS | Encounter Summary ---
Author Organization [facility] Address [address] [place] [address] Care Team Providers Care Senior Ux Developer Name Role Phone Corin Skinner MD Primary Care Provider [phone] Encounter Details Date Type Department Care Team (Late st Contact Info) Description 05/23/2006 Before PRISM Converted Visit (Maple) [facility] - Maple conversion [address] [place] [address] Marvin Perez MD [address] [place] [phone] Social History Tobacco Use Types Packs/Day [...] 05/23/2006 May 23, 2006 Kris Drew MD [address] [place] [id number] Drew: Miguel Angel Burgos was in to see me. He is 1 year from his most recent MRI. 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 The 1stapproach was through a transsphenoidal avenue. The 2nd, intracranial. He had a resultant stroke as well . Miguel Angel Barruplast MRI showed some residual tumor and his [...] [place] half south of [place], [place] and this is quite a trip for him to make. He and his family would like to considereither going to [place] or [place] for followup but I would also be [...] Perez MD 06/02/2006 10:50 Anastasiya Perez MDAssociate ProfessorSouthwestern Vermont Medical CenterDivision of Neurological SurgeryMarvin Perez MD Marvin Perez MD Dance Studio Manager [facility] Division of Neurological Surgery - Sunni Perez MD P - bb Job ID: [id number] Document ID: [id number] cc: Kris Drew MD documented in this encounter Plan of Treatment Upcoming Encounters Date Type Department Care Team (Late st Contact Info) Description 07/06/2024 13:40 EST Office Visit [facility] Endocrinology - [facility] [address] [place] [address] Wilder Zaidi, DO [address] [facility] [address] [place] [address] 09/09/2024 10:20 EST Office Visit [facility] Endocrinology - [facility] [address] [place] [address] Day Littlejohn MD PhD [address] [facility] [address] [place] [address] documented as of this encounter Visit Diagnoses Not on filedocumented in this encounter Care Teams Senior Ux Developer Relationship Specialty Start Date End Date Corin Skinner MD [address] [place] [phone] PCP - General 10/24/08 08/21/09 documented as of this encounter
--- OUTSIDE RECORDS SUMMARY | 2024-06-28 13:56 | XMS_ITS | Encounter Summary ---
Author Organization [facility] Address [address] [place] [address] Care Team Providers Care Feller Machine Operator Name Role Phone Corin Skinner MD Primary Care Provider Encounter Details Date Type Department Care Team (Late st Contact Info) Description 08/19/2007 Before PRISM Converted Visit (Maple) [facility] - Maple conversion [address] [place] [address] Skyler Edwards [facility] [address] [place] [phone] Social History Tobacco Use Types Packs/Day Years Used Date Smoking Tobacco: Never Assessed Sex and Gender Information Value Date Recorded Sex Assigned at Not on file Legal Sex Male 18:35 EST Gender Identity Not on file Sexual Orientation Not on file documented as of this encounter Progress Notes * Skyler Edwards MD - 05/17/2009 1424 EST PROGRESS/FOLLOWUP NOTE - Yan Demarco M.D. [facility] [address] [place] [address] [address] [place] [address] Demarco: I had the pleasure [...] stepmother, aunt, and [facility]. Miguel Angel is now 17 years and 2 months old. Since our last visit, he has needed stress corticosteroid coverage on two occasions; for an upper respiratory tract infection and one gastrointestinal illness but did not require ER visits for these. There have been several significant changes in Miguel Angel's living situation. Parents have moved to [facility], and so Miguel Angel stays with them only on the weekends and stays with his aunt on weekdays so that he may continue to attend the [employer]. Both aunt and stepmother, who are [...] bowel medications were recentlyadjusted beacuse of constipation. Lulus weight continues to been an issue, and [...] other significant changes from previous. I contacted [facility] to obtain all of the blood [...] he is receiving locally and through the [facility]. I have recommended that a referral be made to Dr. Drew Larson, our pediatric psychiatrist, who has seen Miguel Angel in the [...] Skyler Edwards MD Division of Pediatric Endocrinology [phone] - Skyler Edwards MD P - YASMINE Job ID: [id number] Doc ID: [id number] cc: MD Yan Mancera MD P - yasmine Job ID: [id number] Doc ID: [id number] cc: MD Yan Mancera MD documented in this encounter Plan of Treatment Upcoming Encounters Date Type Department Care Team (Late st Contact Info) Description 07/06/2024 13:40 EST Office Visit [facility] Endocrinology - [facility] [address] [place] [address] Wilder Zaidi, DO [address] [facility] [address] [place] [address] 09/09/2024 10:20 EST Office Visit [facility] Endocrinology - [facility] [address] [place] [address] Day Littlejohn MD PhD [address] [facility] [address] [place] [address] documented as of this encounter Visit Diagnoses Not on filedocumented in this encounter Care Teams Feller Machine Operator Relationship Specialty Start Date End Date Corin Skinner MD [address] [place] [phone] PCP - General 10/24/08 08/21/09 documented as of this encounter
--- OUTSIDE RECORDS SUMMARY | 2024-06-28 13:56 | XMS_ITS | Encounter Summary ---
Author Organization [facility] Address [address] [place] [address] Care Team Providers Care Client Services Assistant Name Role Phone Yan Demarco MD Primary Care Provider Corin Skinner MD Primary Care Provider [phone] Encounter Details Date Type Department Care Team (Late st Contact Info) Description 08/13/2005 Before PRISM Converted Visit (Maple) [facility] - Maple conversion [address] [place] [address] Skyler Edwards [facility] [address] [place] [address] Social History Tobacco Use Types Packs/Day Years Used Date Smoking Tobacco: Never Assessed Sex and Gender Information Value Date Recorded Sex Assigned at Not on file Legal Sex Male 18:35 EST Gender Identity Not on file Sexual Orientation Not on file documented as of this encounter Progress Notes * Skyler Edwards MD - 09/06/2009 2009 EST August 13, 2005 Kris Drew MD [address] [place] [id number] 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 His mother, social media designer and two members of his care team at [facility] accompanied him to today's visit. Miguel Angel is now 15 years and one month old. This is his first visit back to the clinic since his transfer to the [facility] in [place]. However I have been in frequent contact with his physician, Dr. Ren Read, at the [facility] to address the multiple endocrine issues. Miguel [...] well as his nursing care at the [facility]. He still has no functional vision, has mu ltiple behavioral issues and concern regarding depression for which he is being treated. While the nursing staff is aware of the potential need for stress corticosteroid coverage he has not needed this as he has not had any significant illness since his transfer to the [facility]. I will review Miguel Angel's progress with [...] to controlling his weight given his relative karina honeycutt and the hyperphagia which can often occur following surgery for craniopharyngioma. 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 He should target [id number] mg of elemental calcium and 400 to 800 international units of vitamin D per day. This should be reviewed with his injector assembler at [facility]. I will adjust his DDAVP and levothyroxine if needed based on today's results. I will see Miguel Angel againin clinic in six months whether he is still at [facility] or has found a suitable foster home in [place]. Thank you for allowing me to participate in the care of this patient. If you have any further questions or concerns, please do not hesitate to contact me. ADDENDUM: free T4 1.4, sodium 134. No change. Thyroid function neded only be rechecked in 6 months unless any clinical change.. Sincerely, Signed by Skylre Edwards MD 08/16/2005 14:06 Lincoln Edwards, [facility] [id number] James Zimakas, MD Skyler Edwards MD Division of Pediatric Endocrinology [phone] - Skyler Edwards MD P - O1 Job ID: [id number] Document ID: [id number] cc: MD Kris Mccauley MD * [facility] [place]* documented in this encounter Plan of Treatment Upcoming Encounters Date Type Department Care Team (Late st Contact Info) Description 07/06/2024 13:40 EST Office Visit [facility] Endocrinology - [address] [address] Wilder Zaidi, [address] [facility] [address] [place] [address] 09/09/2024 10:20 EST Office Visit [facility] Endocrinology - [facility] [address] [place] [address] Day Littlejohn MD PhD [address] [facility] [address] [place] [address] documented as of this encounter Visit Diagnoses Not on filedocumented in this encounter Care Teams Client Services Assistant Relationship Specialty Start Date End Date Yan Demarco MD [address] [place] [address] PCP - General 08/22/09 02/20/10 Corin Skinner MD [address] [place] [phone] PCP - General 10/24/08 08/21/09 documented as of this encounter
--- OUTSIDE RECORDS SUMMARY | 2024-06-28 13:56 | XMS_ITS | Encounter Summary ---
Author Organization [facility] Address [address] [place] [address] Care Team Providers Care Oyster Grader Name Role Phone Unavailable Primary Care Provider Unavailabl e Encounter Details Date Type Department Care Team (Latest Contact Info) Description 01/15/2005 12:20 EDT - 03/28/2005 11:59 EDT Hospital Encounter [facility] Unit Level 2 [address] [place] [address] Allison Alarcon MD [address] [place] [phone] Discharge Disposition: Nursing Facility (Skilled) Social History [...] admitted to the inpatient rehabilitation service at [facility] on November 20, 2004. From a rehabilitation [...] She will continue to reside in the [place] area and she presently requires hemodialysis three times a week. She will make attempts to travel and visit her son in the facility when able. DISCHARGE PLAN: 1. Transfer to [facility] for continuation of subacute level rehab services. 2. 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 The following recommendations are being given by the pediatric endocrinology service. Further questions can be referredto the endocrinology service at [facility] by calling and asking to be connected to the endocrinology service physicians and surgeons and if available, Dr. Davin Edwards, the pediatric supervisor joiners. a. For management of his central diabetes [...] In the case of an acute crisis, dinesh english should receive 100 mg IV or IM [...] dictation. 5. If patient returns to the [facility] at some point, patients previous primary care [...] Alarcon MD A - mt Job ID: [id number] Document ID: [id number] cc: MD Kris Mccauley MD Christa M Zehle, MD Paul James Zimakas, MD *Floresita Ramos MD, [facility], [address], [place] [address] documented in this encounter Discharge Disposition Disposition [...] [facility] that will be his primary physician there yesterday. PLAN: 1. Discharge from our services. 2. Transfer to [facility]. 3. Dictation of discharge summary. (Discharge work, greater than 30 minutes.) Signed by Allison Alarcon MD 03/29/2005 08:45 Sky Hollingsworth MD Allison Alarcon MD - Allison Alarcon MD P - lr Job ID: [id number] Document ID: [id number] cc: * Raleigh Castañeda MD - 03/28/2005 [...] Castañeda MD A - mt Job ID: [id number] Document ID: [id number] cc: * Allison Alarcon MD - 03/27/2005 [...] the procedure, the findings and plan for Robpauransfer tomorrow. Transfer forms completed. Length[facility] [place] multiple issues and needs. PLAN: 1. Recheck [...] Alarcon MD A - mt Job ID: [id number] Document ID: [id number] cc: * Raleigh Castañeda MD - 03/27/2005 [...] MD - Raleigh Castañeda MD A - outsewer Job ID: [id number] Document ID: [id number] cc: * Allison Alarcon MD - 03/26/2005 [...] confirms the patient will be transferred to [facility] on . ASSESSMENT: patient status post CVA with craniopharyngioma. The patient still has difficulty calming himself and communicating needs appropriately when he gets more anxious or frustrated. Final details of MRI planned for tomorrow confirmed with the floor bilingual secretary. Also discussed with ENT for them to evaluate him for foreign bodies in his right ear canal. [facility] S[facility] levels are showing good control. We [...] Alarcon MD A - re Job ID: [id number] Document ID: [id number] cc: * Raleigh Castañeda MD - 03/26/2005 [...] Castañeda MD A - ss Job ID: [id number] Document ID: [id number] cc: * Allison Alarcon MD - 03/25/2005 [...] Alarcon MD A - mt Job ID: [id number] Document ID: [id number] cc: * Raleigh Castañeda MD - 03/25/2005 [...] Signed by Raleigh Castañeda MD 04/01/2005 13:53 Dena Castañeda, Pipe Castañeda MD MD Judy Oquendo: 03/31/2005 - Raleigh Castañeda MD P - lr Job ID: [id number] Document ID: [id number] cc: * Allison Alarcon MD - 03/24/2005 [...] Alarcon MD A - mt Job ID: [id number] Document ID: [id number] cc: * Allison Alarcon MD - 03/23/2005 [...] Alarcon MD A - re Job ID: [id number] Document ID: [id number] cc: * Raleigh Castañeda MD - 03/22/2005 [...] Castañeda MD P - lr Job ID: [id number] Document ID: [id number] cc: * Wicho Carlton MD - 03/22/2005 [...] Carlton MD P - lr Job ID: [id number] Document ID: [id number] cc: * Allison Alarcon MD - 03/21/2005 0000 EDT INPATIENT PROGRESS NOTE PT LOC: F002 Service Date: 03/21/2005 DIAGNOSIS: Bilateral cerebrovascular accidents/panhypopituitarism. SUBJECTIVE: Miguel Angel responsive and awake this morning. Denying any pain. Participating in therapies. OBJECTIVE: Vital signs are stable. Affect pleasant. Left hemiparesis continues. Verbal output remains with dysarthria. ASSESSMENT: CVA with panhypopituitarism. Anticipated discharge today to [facility] has been delayed to administrative and approval issues from the Medicaid system per our social science teacher. Mom has been informed. In that the [...] coordinate this were covered at length with commercial hvac service technician today. Reviewed with mom availability. PLAN: [...] will be able to be transferred to [facility] on that day. (Fifty minutes total time, greater than 50% direct patient and family discussion of issues as aboveand care coordination with team.) Signed by Allison Alarcon MD 03/23/2005 16:47 Sky Hollingsworth MD Allison Alarcon MD - Allison Alarcon MD A - mt Job ID: [id number] Document ID: [id number] cc: * Raleigh Castañeda MD - 03/21/2005 [...] Castañeda MD P - lr Job ID: [id number] Document ID: [id number] cc: * Allisno Alarcon MD - 03/20/2005 0000 EDT INPATIENT [...] been approved and cleared for transfer to [facility] tomorrow. Mom is aware that this [...] Alarcon MD A - mt Job ID: [id number] Document ID: [id number] cc: * Raleigh Castañeda MD - 03/20/2005 [...] Raleigh Castañeda MD 04/01/2005 13:54 Dena Castañeda, [facility] Raleigh Castañeda MD - Raleigh Castañeda MD A - re Job ID: [id number] Document ID: [id number] cc: * Allison Alarcon MD - 03/19/2005 [...] work reports patient has been accepted at [facility]. This final plan is to be reviewed with mom. Miguel Angel has not yet been informed. Staff are videotaping sessions to help give the next staff a baseline of where his sessions have been at and what to continue to work with. [facility] has also asked for a PPD [...] with the patientprimary care physician from the [facility], Dr. Drew, who was here to see him. Reviewed the medical issues on him at present and focus of care. Dr. Drew indicates he feels he has made excellent progress. At present, there still is not enough staff or support in the [facility] to return him to a home environment. PLAN: 1. PPD to be placed today. 2. Social work working on contacting the mom, who is out of the hospital today, to start establishing a firm plan for when patient will be transferred to [facility] potentially or next Friday. 3. Continue all present medications. 4. Reinforce patient needs to have between 2 to 2.5 liters in fluids per day. Forty minutes total time, greater then 50% care coordination with team. Signed by Allison Alarcon MD 03/20/2005 08:43 Sky Hollingsworth MD Allison Alarcon MD - Allison Alarcon MD A - mt Job ID: [id number] Document ID: [id number] cc: * Raleigh Castañeda MD - 03/19/2005 0000 EDT INPATIENT [...] Signed by Raleigh Castañeda MD 03/27/2005 17:21 Dena Castañeda, [facility] MD Rlaeigh Castañeda MD - Raleigh Castañeda MD A - mt Job ID: [id number] Document ID: [id number] cc: * Allison Alarcon MD - 03/18/2005 [...] Alarcon MD A - mt Job ID: [id number] Document ID: [id number] cc: * Raleigh Castañeda MD - 03/18/2005 [...] Castañeda MD A - re Job ID: [id number] Document ID: [id number] cc: * Raleigh Castañeda MD - 03/17/2005 [...] Castañeda MD A - ss Job ID: [id number] Document ID: [id number] cc: * Raleigh Castañeda MD - 03/16/2005 [...] Signed by Raleigh Castañeda MD 03/26/2005 10:01 Dena Castañeda, [facility] MD Raleigh Castañeda MD - Raleigh Castañeda MD P - lr Job ID: [id number] Document ID: [id number] cc: * Wicho Carlton MD - 03/15/2005 [...] Carlton MD P - re Job ID: [id number] Document ID: [id number] cc: * Raleigh Castañeda MD - 03/15/2005 [...] Castañeda MD A - lr Job ID: [id number] Document ID: [id number] cc: * Allison Alarcon MD - 03/14/2005 [...] Signed by Allison Alarcon MD 03/15/2005 13:08 ACarol Sky Flowers MD Allison Alarcon MD - Allison Alarcon MD A - mt Job ID: [id number] Document ID: [id number] cc: * Raleigh Castañeda MD - 03/14/2005 [...] by Raleigh Castañeda MD 03/21/2005 16:08 Pipe Corey, Pipe Castañeda MD Raleigh Castañeda MD - Raleigh Castañeda MD P - mh Job ID: [id number] Document ID: [id number] cc: * Allison Alarcon MD - 03/13/2005 [...] Alarcon MD A - re Job ID: [id number] Document ID: [id number] cc: * Raleigh Castañeda MD - 03/13/2005 [...] Castañeda MD P - mh Job ID: [id number] Document ID: [id number] cc: * Allison Alarcon MD - 03/12/2005 [...] Alarcon MD A - mt Job ID: [id number] Document ID: [id number] cc: * Raleigh Castañeda MD - 03/12/2005 [...] Castañeda MD P - mt Job ID: [id number] Document ID: [id number] cc: * Kris Thomas MD - 03/11/2005 [...] Kris Thomas MD P - Job ID: [id number] Document ID: [id number] cc: * Kris Thomas MD - 03/10/2005 [...] Kris Thomas MD P - Job ID: [id number] Document ID: [id number] cc: * Kris Thomas MD - 03/09/2005 [...] Thomas MD P - mh Job ID: [id number] Document ID: [id number] cc: * Wicho Carlton MD - 03/08/2005 [...] Carlton MD P - re Job ID: [id number] Document ID: [id number] cc: * Raleigh Castañeda MD - 03/08/2005 [...] Continue niacin for hypertriglyceridemia. Signed by Raleigh aCstañeda MD 03/13/2005 11:21 Dena Castañeda, Pipe Castañeda, Pipe Castañeda MD Raleigh Castañeda MD - Raleigh Castañeda MD P - Job ID: [id number] Document ID: [id number] cc: * Raleigh Castañeda MD - 03/07/2005 [...] Castañeda MD A - re Job ID: [id number] Document ID: [id number] cc: * Wicho Carlton MD - 03/07/2005 [...] Carlton MD P - ss Job ID: [id number] Document ID: [id number] cc: * Raleigh Castañeda MD - 03/06/2005 [...] Castañeda MD P - chelle Job ID: [id number] Document ID: [id number] cc: * Wicho Carltno MD - 03/06/2005 0000 EDT INPATIENT PROGRESS [...] Signed by Wicho Carlton MD 03/07/2005 14:51 Nadine Garcia MD Wicho Carlton MD - Wicho Carlton MD A - mt Job ID: [id number] Document ID: [id number] cc: * Wicho Carlton MD - 03/05/2005 [...] disposition options, as well, as discussed with perinatal social worker. Apparently,his title insurance examiner is uncertain whether he can meet his ongoing needs. He is planning isha in the area in approximately two weeks and said he could tentatively make a decision at that point. Subacute level programs are being pursued and the patients mother is aware as I discussed with her. Signed by Wicho Carlton MD 03/05/2005 15:58 Nadnie Garcia MD Wicho Carlton MD - iWcho Carlton MD P - ss Job ID: [id number] Document ID: [id number] cc: * Raleigh Castañeda MD - 03/05/2005 [...] Castañeda MD A - re Job ID: [id number] Document ID: [id number] cc: * Raleigh Castañeda MD - 03/04/2005 0000 EDT INPATIENT PROGRESS NOTE PT LOC: F002 Service Date: 03/04/2005 Mr. Brugos is a 14-year-old with stroke syndrome and [...] Castañeda MD A - ss Job ID: [id number] Document ID: [id number] cc: * Wicho Carlton MD - 03/04/2005 0000 EDT INPATIENT PROGRESS NOTE PT LOC: F002 Service Date: 03/04/2005 Miguel Angel appears to be more agitated over the last several days with uncertain etiology. Vital signs are stable, afebrile. Heart regular, lungs clear. Abdomen: G-tube is intact. Calves soft and nontender. Neurologic without change. IMPRESSION: 1. Craniopharyngioma resection: Continue present therapy program. media services director is actively involved. I am of the understanding that outside agencies are going to be looking at him this week. 2. Hyponatremia: Continue to monitor intermittently. Signed by Wicho Carlton MD 03/05/2005 15:58 Nadine Garcia MD Wicho Carlton MD - Wicho Carlton MD P - ss Job ID: [id number] Document ID: [id number] cc: * Drew Larson MD - 03/03/2005 [...] Larson MD A - re Job ID: [id number] Document ID: [id number] cc: * Raleigh Castañeda MD - 03/02/2005 [...] by Raleigh Castañeda MD 03/05/2005 11:27 Pipe Corey, Pipe Castañeda MD Raleigh Castañeda MD - Raleigh Castañeda MD A - chelle Job ID: [id number] Document ID: [id number] cc: * Raleigh Castañeda MD - 03/01/2005 [...] Raleigh Castañeda MD 03/05/2005 11:27 Dena Castañeda, Pipe Castañeda, Pipe Castañeda MD Raleigh Castañeda MD - Raleigh Castañeda MD A - outsewer Job ID: [id number] Document ID: [id number] cc: * Wicho Carlotn MD - 02/28/2005 0000 EDT INPATIENT PROGRESS [...] elevated but stable. We are awaiting placement. [facility]. Signed by Wicho Carlton MD 02/28/2005 14:08 Nadine Garcia MD Wicho Carlton MD - Wicho Carlton MD P - ss Job ID: [id number] Document ID: [id number] cc: * Raleigh Castañeda MD - 02/28/2005 [...] Castañeda MD A - mt Job ID: [id number] Document ID: [id number] cc: * Wicho Carlton MD - 02/27/2005 [...] Signed by Wicho Carlton MD 02/28/2005 14:08 Gregor Carlton, Nadine Carlton MD MD Judy March: 02/27/2005- Wicho Carlton MD A - ss Job ID: [id number] Document ID: [id number] cc: * Raleigh Castañeda MD - 02/27/2005 [...] Castañeda MD A - re Job ID: [id number] Document ID: [id number] cc: * Wicho Carlton MD - 02/26/2005 [...] Carlton MD A - ss Job ID: [id number] Document ID: [id number] cc: * Raleigh Castañeda MD - 02/26/2005 [...] Castañeda MD A - re Job ID: [id number] Document ID: [id number] cc: * Wicho Carlton MD - 02/25/2005 [...] Carlton MD P - ss Job ID: [id number] Document ID: [id number] cc: * Raleigh Castañeda MD - 02/25/2005 0000 EDT INPATIENT PROGRESS NOTE PT LOC: F002 Service Date: 02/25/2005 Mr. Burgos is a 89-bfhs-hxeoaowhydrui from resection of craniopharyngioma with resultant stroke syndrome and panhypopituitarism. Other issues include fatty liver infiltration and hypertriglyceridemia. Vital signs are stable, the patient is afebrile. Cardiac rhythm is regular. Lung medellin are clear. Abdomen is soft. JVD is not visible. ASSESSMENT/PLAN: Continue multihormonal for support of panhypopituitarism. Continue low-dose niacinfor hypertriglyceridemia. Signed by Raleigh Castañeda MD 02/28/2005 15:20 Dena Castañeda, Pipe Castañeda MD Raleigh Castañeda MD - Raleigh Castañeda MD P - ss Job ID: [id number] Document ID: [id number] cc: * Allison Alarcon MD - 02/24/2005 [...] to try and help with some of [place] behaviors. PLAN: 1. Change Ritalin to 15 mg q.a.m. and 5 mg q.p.m. 2. Start risperidone 1 mg p.o. q.p.m. 3. Labs as ordered for tomorrow. Allow Robaxin as a p.r.n. for discomfort at night. Signed by Allison Alarcon MD 02/26/2005 23:34 Sky Hollingsworth MD Allison Alarcon MD - Allison Alarcon MD A - re Job ID: [id number] Document ID: [id number] cc: * Allison Alarcon MD - 02/23/2005 [...] Alarcon MD P - lr Job ID: [id number] Document ID: [id number] cc: * Wicho Carlton MD - 02/22/2005 [...] Dr. Alarcon had worked aggressively with the state regarding potential disposition issues. Continue to monitor effect of change in DDAVP dosing. Signed by Wicho Carlton MD 02/25/2005 08:22 Nadine Garcia MD Wicho Carlton MD - Wicho Cartlon MD P - ss Job ID: [id number] Document ID: [id number] cc: * Raleigh Castañeda MD - 02/22/2005 [...] by Raleigh Castañeda MD 02/25/2005 12:14 Pipe Corey, MD Raleigh Castañeda MD - Raleigh Castañeda MD A - mt Job ID: [id number] Document ID: [id number] cc: * Allison Alarcon MD - 02/21/2005 [...] primary care physician, Dr. Drew, in the [place] area and reviewed with him the concerns regarding Robinpotential return to the [facility]. Details of agency management still being worked [...] patient contact and care coordination with team [facility]). Signed by Allison Alarcon MD 02/23/2005 17:08 ACarol Sunni Alarcon MDCarol Sunni Alarcon MD Allison Alarcon MD - Allison Alarcon MD A - re Job ID: [id number] Document ID: [id number] cc: * Raleigh Castañeda MD - 02/21/2005 [...] Castañeda MD A - ss Job ID: [id number] Document ID: [id number] cc: * Allison Alarcon MD - 02/20/2005 [...] need back from his team in the [facility] area in terms of their ability to [...] Alarcon MD 02/21/2005 12:21 Sky Hollingsworth MD MD Judy Orellana: 02/20/2005- Allison Alarcon MD A - ss Job ID: [id number] Document ID: [id number] cc: * Raleigh Castañeda MD - 02/20/2005 [...] Castañeda MD 02/25/2005 10:13 Pipe Corey MD aRleigh Castañeda MD - Raleigh Castañeda MD A - re Job ID: [id number] Document ID: [id number] cc: * Raleigh Castañeda MD - 02/19/2005 [...] Castañeda MD A - mt Job ID: [id number] Document ID: [id number] cc: * Allison Alarcon MD - 02/19/2005 [...] consultation if needed. Met also with Bett[place] social science teacher out of his primary careoffice, who continues to follow. There was a case management meeting called last week in his local area. Primary care physician still concerned that there are not sufficient services that are going to be available in the local area from a home therapy standpoint, as well as needing to have a clear understanding of [place] behaviors and a good behavioral back-up plan. [...] Signed by Allison Alarcon MD 02/21/2005 12:21 Armand Alarcon, Sky Alarcon MD Allison Alarcon MD - Allison Alarcon MD A - re Job ID: [id number] Document ID: [id number] cc: * Allison Alarcon MD - 02/18/2005 [...] Alarcon MD P - ss Job ID: [id number] Document ID: [id number] cc: * Raleigh Castañeda MD - 02/18/2005 [...] Castañeda MD A - ss Job ID: [id number] Document ID: [id number] cc: * Drew Larson MD - 02/17/2005 [...] will repeat labs tomorrow. Primary service will product picker anychanges in his LFTs andrefer to appropriate specialists as necessary. Dr. Castañeda will continue to follow closely. Electrolytes generally are under adequate control today. Follow-up electrolytes for tomorrow. Signed by Drew Larson MD 02/18/2005 11:45 Leroy Boateng MD Drew Larson MD - Drew Larson MD P - re Job ID: [id number] Document ID: [id number] cc: * Drew Larson MD - 02/16/2005 [...] Larson MD P - re Job ID: [id number] Document ID: [id number] cc: * Raleigh Castañeda MD - 02/15/2005 [...] Castañeda MD A - ss Job ID: [id number] Document ID: [id number] cc: * Raleigh Castañeda MD - 02/14/2005 [...] Castañeda MD P - mt Job ID: [id number] Document ID: [id number] cc: * Allison Alarcon MD - 02/14/2005 [...] Allison Alarcon MD 02/15/2005 09:37 ACarol KYLE Flowersarol Sunni Alarcon MD Allison Alarcon MD - Allison Alarcon MD A - mt Job ID: [id number] Document ID: [id number] cc: * Allison Alarcon MD - 02/13/2005 [...] Signed by Allison Alarcon MD 02/14/2005 14:39 ACaSky Dumont MD Allison Alarcon MD - Allison Alarcon MD A - [place] Job ID: [id number] Document ID: [id number] cc: * Raleigh Castañeda MD - 02/13/2005 [...] Castañeda MD P - mh Job ID: [id number] Document ID: [id number] cc: * Allison Alarcon MD - 02/12/2005 [...] Dr. Edwards, who [facility] and his foster parents before [...] Alarcon MD A - mt Job ID: [id number] Document ID: [id number] cc: * Raleigh Castañeda MD - 02/12/2005 [...] Castañeda MD P - mh Job ID: [id number] Document ID: [id number] cc: * Raleigh Castañeda MD - 02/11/2005 [...] Castañeda MD P - mh Job ID: [id number] Document ID: [id number] cc: * Allison Alarcon MD - 02/11/2005 [...] and have education provided by a pediatric supervisor joiners. Sodium continues to fluctuate be within an [...] Alarcon MD A - mo Job ID: [id number] Document ID: [id number] cc: * Allison Alarcon MD - 02/10/2005 [...] Alarcon MD A - mo Job ID: [id number] Document ID: [id number] cc: * Jai Barrera MD - 02/09/2005 [...] MD - Jai Barrera MD A - ct Job ID: [id number] Document ID: [id number] cc: * Raleigh Castañeda MD - 02/08/2005 [...] Castañeda MD A - mt Job ID: [id number] Document ID: [id number] cc: * Wicho Carlton MD - 02/08/2005 [...] Carlton MD A - mt Job ID: [id number] Document ID: [id number] cc: * Allison Alarcon MD - 02/07/2005 [...] Conference: Met with social work and nurse test case developer from his local area and his mom [...] Alarcon MD A - mt Job ID: [id number] Document ID: [id number] cc: * Raleigh Castañeda MD - 02/07/2005 [...] Castañeda MD P - lr Job ID: [id number] Document ID: [id number] cc: * Allison Alarcon MD - 02/06/2005 [...] by Allison Alarcon MD 02/07/2005 16:52 ACarol KYLE Flowersaroliudmila Alarcon MD Allison Alarcon MD - Allison Alarcon MD A - re Job ID: [id number] Document ID: [id number] cc: * Raleigh Castañeda MD - 02/06/2005 [...] Castañeda MD A - re Job ID: [id number] Document ID: [id number] cc: * Allison Alarcon MD - 02/05/2005 [...] Alarcon MD A - re Job ID: [id number] Document ID: [id number] cc: * Raleigh Castañeda MD - 02/05/2005 0000 EDT INPATIENT PROGRESS NOTE PT LOC: F002 Service Date: 02/05/2005 Night sheets reviewed. Patient tolerating the therapy program. Vital signs are stable. Patient is afebrile. Medical status is suitable to continue full program activities. Signed by Raleigh Castañeda MD 02/08/2005 08:21 Jignesh Coreyis D Castañeda, MD Raleigh Castañeda MD - Raleigh Castañeda MD P - lr Job ID: [id number] Document ID: [id number] cc: * Wicho Carlton MD - 02/04/2005 [...] Carlton MD P - mo Job ID: [id number] Document ID: [id number] cc: * Raleigh Castañeda MD - 02/04/2005 [...] Castañeda MD A - mt Job ID: [id number] Document ID: [id number] cc: * Raleigh Castañeda MD - 02/03/2005 [...] Raleigh Castañeda MD A - Job ID: [id number] Document ID: [id number] cc: * Drew Larson MD - 02/02/2005 [...] Larson MD P - lr Job ID: [id number] Document ID: [id number] cc: * Wicho Carlton MD - 02/01/2005 [...] Carlton MD P - ss Job ID: [id number] Document ID: [id number] cc: * Raleigh Castañeda MD - 02/01/2005 [...] Castañeda MD P - mh Job ID: [id number] Document ID: [id number] cc: * Raleigh Castañeda MD - 01/31/2005 [...] Castañeda MD P - lr Job ID: [id number] Document ID: [id number] cc: * Wicho Carlton MD - 01/30/2005 0000 EDT INPATIENT PROGRESS NOTE PT LOC: F002 Service Date: 01/30/2005 The patient is relatively calm this morning. He was evaluated by perinatal social worker yesterday at the [facility] level for evaluation of next appropriate setting. [...] doses of Ritalin and Zoloft. DISPOSITION: Social ervices at the [facility] is working with Lashon Lawton the [facility] to help assess placement issues. Case discussed with perinatal social worker this morning. Signed by Wicho Carlton MD 01/31/2005 08:05 Nadine Garcia MD Wicho Carlton MD - Wicho Carlton MD A - re Job ID: [id number] Document ID: [id number] cc: * Raleigh Castañeda MD - 01/30/2005 [...] Castañeda MD P - re Job ID: [id number] Document ID: [id number] cc: * Wicho Carlton MD - 01/29/2005 [...] Carlton MD P - mo Job ID: [id number] Document ID: [id number] cc: * Raleigh Castañeda MD - 01/29/2005 [...] Castañeda MD P - re Job ID: [id number] Document ID: [id number] cc: * Wicho Carlton MD - 01/28/2005 [...] Carlton MD P - chelle Job ID: [id number] Document ID: [id number] cc: * Raleigh Castañeda MD - 01/28/2005 [...] Castañeda MD P - lr Job ID: [id number] Document ID: [id number] cc: * Wicho Carlton MD - 01/27/2005 [...] Carlton MD P - re Job ID: [id number] Document ID: [id number] cc: * Wicho Carlton MD - 01/26/2005 [...] Carlton MD P - lr Job ID: [id number] Document ID: [id number] cc: * Wicho Carlton MD - 01/25/2005 [...] Carlton MD P - ss Job ID: [id number] Document ID: [id number] cc: * Raleigh Castañeda MD - 01/25/2005 [...] Castañeda MD A - mt Job ID: [id number] Document ID: [id number] cc: * Allison Alarcon MD - 01/24/2005 [...] Alarcon MD A - MO Job ID: [id number] Document ID: [id number] cc: A - mo Job ID: [id number] Document ID: [id number] cc: * Raleigh Castañeda MD - 01/24/2005 [...] Castañeda MD P - re Job ID: [id number] Document ID: [id number] cc: * Allison Alarcon MD - 01/23/2005 [...] Signed by Allison Alarcon MD 01/25/2005 10:18 ACarol KYLE Flowersaroliudmila Alarcon MD Allison Alarcon MD - Allison Alarcon MD A - ss Job ID: [id number] Document ID: [id number] cc: * Raleigh Castañeda MD - 01/23/2005 [...] Castañeda MD P - ss Job ID: [id number] Document ID: [id number] cc: * Allison Alarcon MD - 01/22/2005 [...] 5. Med psych to talk to prior test case developer and discuss medication regimen options. 6. Allow Percocet and Benadryl. 7. Team to work on behavioral plan with MEd Psych. minutes total time, greater than 50% direct patient, family education and care coordination with team). Signed by Allison Alarcon MD 01/23/2005 09:29 ACaSky Dumont MD Allison Alarcon MD - Allison Alarcon MD A - RE Job ID: [id number] Document ID: [id number] cc: * Raleigh Castañeda MD - 01/22/2005 [...] Castañeda MD P - ss Job ID: [id number] Document ID: [id number] cc: * Allison Alarcon MD - 01/21/2005 [...] Alarcon MD A - ss Job ID: [id number] Document ID: [id number] cc: * Raleigh Castañeda MD - 01/21/2005 [...] Castañeda MD P - lr Job ID: [id number] Document ID: [id number] cc: * Drew Larson MD - 01/20/2005 [...] on the rehab unit with a nursing attendant wheeling him around. When he is distracted, [...] Signed by Drew Larson MD 01/22/2005 15:47 Leroy Boateng MDScott E Benjamin, MD Drew Larson MD - Drew Larson MD A - chelle Job ID: [id number] Document ID: [id number] cc: * Raleigh Castañeda MD - 01/19/2005 [...] Castañeda MD P - re Job ID: [id number] Document ID: [id number] cc: * Wciho Carlton MD - 01/18/2005 0000 EDT INPATIENT [...] Carlton MD A - re Job ID: [id number] Document ID: [id number] cc: * Raleigh Castañeda MD - 01/18/2005 0000 EDT INPATIENT PROGRESS NOTE PT LOC: [id number] Service Date: 01/18/2005 Mr. Burgos is a [id number] from resection of a craniopharyngioma with secondary [...] Raleigh Castañeda MD 01/25/2005 11:39 Dena Castañeda, [facility] Raleigh Castañeda MD - Raleigh Castañeda MD A - ss Job ID: [id number] Document ID: [id number] cc: * Allison Alarcon MD - 01/17/2005 [...] Alarcon MD P - lr Job ID: [id number] Document ID: [id number] cc: * Allison Alarcon MD - 01/16/2005 [...] Alarcon MD A - re Job ID: [id number] Document ID: [id number] cc: documented in this encounter Plan of Treatment Upcoming Encounters Date Type Department Care Team (Late st Contact Info) Description 07/06/2024 13:40 EST Office Visit [facility] - [address] [address] Wilder Zaidi, [address] [place] [phone] 09/09/2024 10:20 EST Office Visit [facility] [address] [address] Day Littlejohn MD PhD [address] [place] [phone] documented as of this encounter Procedures [...] 145 mEq/L [facility] Comment:Performed at [place], [place] 03/26/2005 6:50 EDT 03/26/2005 7:12 EDT Allison Alarcon MD CHEMISTRY & BLOOD GAS ORDERA BLES Final Result Performing Organization Address [facility] de Phone Number [facility] [address] [place] [address] * (ABNORMAL) LIPID PROFILE (INCLUDES CHOLESTEROL, TRIGLYCERIDES, HDL, LDL) (03/22/2005 6:35 EDT) Cholesterol 174 mg/dl [facility] Comment: Desirable:<200 Borderline:200-239 High Risk:>be=249 Triglycerides 675(H) 34 - 165 mg/dl [facility] Comment:Performed at [place], [place] HDL 24 mg/dl [facility] Comment: Highly Desirable:>60 Desirable:35-60 High Risk:<35 FASTING LDL, Calculated Triglyceride greater than 400 mg/dl, LDL calculation invalid. Desirable:<130 Borderline:130- 159 High Risk:>sp=463 mg/dl [facility] Comment:FASTING Chol/HDL Ratio 7.3 FASTING [facility] Fasting? Yes [facility] 03/22/2005 6:35 EDT 03/22/2005 6:49 EDT Allison Alarcon MD CHEMISTRY & BLOOD GAS ORDERA BLES Final Result Performing Organization Address [facility] Co de Phone Number [facility] [address] [place] [address] * (ABNORMAL) AST (03/22/2005 6:35 EDT) AST 86(H) 16 - 38 U/L [facility] Comment:Performed at [place], [place] 03/22/2005 6:35 EDT 03/22/2005 6:49 EDT us Allison Alarcon MD CHEMISTRY & BLOOD GAS ORDERA BLES Final Result Performing Organization Address [facility] de Phone Number [facility] [address] [place] [address] * (ABNORMAL) ALT (03/22/2005 6:35 EDT) ALT 335(H) 10 - 45 U/L [facility] Comment:Performed at [place], [place] 03/22/2005 6:35 EDT 03/22/2005 6:49 EDT us Allison Alarcon MD CHEMISTRY & BLOOD GAS ORDERA BLES Final Result Performing Organization Address [facility] de Phone Number [facility] [address] [place] [address] * ALKALINE PHOSPHATASE (03/22/2005 6:35 EDT) Total Alkaline Phosphatase 309 130 - 525 U/L [facility] Comment:Performed at [place], [place] 03/22/2005 6:35 EDT 03/22/2005 6:49 EDT us Allison Alarcon MD CHEMISTRY & BLOOD GAS ORDERA BLES Final Result Performing Organization Address [facility] de Phone Number [facility] [address] [place] [address] * (ABNORMAL) SODIUM (03/20/2005 6:45 EDT) Sodium 149(H) 136 - 145 mEq/L [facility] Comment:Performed at [place], [place] 03/20/2005 6:45 EDT 03/20/2005 6:47 EDT us Allison Alarcon MD CHEMISTRY & BLOOD GAS ORDERA BLES Final Result Performing Organization Address [facility] Co de Phone Number [facility] [address] [place] [address] * (ABNORMAL) SODIUM (03/18/2005 6:45 EDT) Sodium 148(H) 136 - 145 mEq/L [facility] Comment:Performed at [place], [place] 03/18/2005 6:45 EDT 03/18/2005 6:56 EDT us Allison Alarcon MD CHEMISTRY & BLOOD GAS ORDERA BLES Final Result Performing Organization Address [facility] de Phone Number [facility] [address] [place] [address] * GLUCOSE, GLUCOMETER (03/15/2005 5:32 EDT) Glucose, Fingerstick 89 70 - 110 mg/dl [facility] Associate Professor Of Musicology ID [id number] Test Performed by Nursing Services [facility] 03/15/2005 5:32 EDT 03/15/2005 22:32 EDT us Allison Alarcon MD CHEMISTRY & BLOOD GAS ORDERA BLES Final Result Performing Organization Address [facility] de Phone Number [facility] [address] [place] [address] * SODIUM (03/14/2005 6:25 EDT) Sodium 145 136 - 145 mEq/L [facility] Comment:Performed at [place], [place] 03/14/2005 6:25 EDT 03/14/2005 6:53 EDT us Allison Alarcon MD CHEMISTRY & BLOOD GAS ORDERA BLES Final Result Performing Organization Address [facility] de Phone Number [facility] [address] [place] [address] * (ABNORMAL) SODIUM (03/13/2005 6:00 EDT) Sodium 152(H) 136 - 145 mEq/L [facility] Comment:Performed at [facility] [place], [place] 03/13/2005 6:00 EDT 03/13/2005 6:59 EDT Allison Alarcon MD CHEMISTRY & BLOOD GAS ORDERA BLES Final Result Performing Organization Address [facility] de Phone Number [facility] [address] [place] [address] * (ABNORMAL) SODIUM (03/12/2005 17:04 EDT) Sodium 151(H) 136 - 145 mEq/L [facility] Comment:Slight hemolysis 03/12/2005 17:0 4 EDT 03/12/2005 17:05 EDT Allison Alarcon MD CHEMISTRY & BLOOD GAS ORDERA BLES Final Result Performing Organization Address [facility] de Phone Number [facility] [address] [place] [address] * (ABNORMAL) TRIGLYCERIDE (03/06/2005 6:25 EDT) Triglycerides 342(H) 34 - 165 mg/dl [facility] Comment:Performed at [facility] [employer] [place], [place] 03/06/2005 6:25 EDT 03/06/2005 6:32 EDT us Allison Alarcon MD CHEMISTRY & BLOOD GAS ORDERA BLES Final Result Performing Organization Address [facility] de Phone Number [facility] [address] [place] [address] * T3, TOTAL (03/06/2005 6:25 EDT) T3, Total 147 60 - 181 ng/dl [facility] 03/06/2005 6:25 EDT 03/06/2005 6:32 EDT Allison Alarcon MD CHEMISTRY & BLOOD GAS ORDERA BLES Final Result Performing Organization Address [facility]/ZIP Co de Phone Number [facility] [address] [place] [address] * GLUCOSE, SERUM (03/06/2005 6:25 EDT) Glucose, Serum 90 70 - 110 mg/dl [facility] Comment:Performed at [facility] [place] 03/06/2005 6:25 EDT 03/06/2005 6:32 EDT Allison Alarcon MD CHEMISTRY & BLOOD GAS ORDERA BLES Final Result Performing Organization Address City/[facility] Co de Phone Number [facility] [address] [place] [address] * PREALBUMIN (03/06/2005 6:25 EDT) Prealbumin 35 mg/dl [facility] 03/06/2005 6:25 EDT 03/06/2005 6:32 EDT us Allison Alarcon MD CHEMISTRY & BLOOD GAS ORDERA BLES Final Result Performing Organization Address [facility] de Phone Number [facility] [address] [place] [address] * (ABNORMAL) ELECTROLYTES (03/06/2005 6:25 EDT) Sodium 147(H) 136 - 145 mEq/L [facility] Potassium 4.6 3.6 - 5.2 mEq/L [facility] Chloride 111(H) 96 - 110 mEq/L [facility] CO2 25 24 - 32 mEq/L [facility] Comment:Performed at [facility], [place], [place] 03/06/2005 6:25 EDT 03/06/2005 6:32 EDT us Allison Alarcon MD CHEMISTRY & BLOOD GAS ORDERA BLES Final Result Performing Organization Address City/[facility]/ZIP Co de Phone Number [facility] [address] [place] [address] * (ABNORMAL) HEMAGRAM (03/06/2005 6:25 EDT) WBC 5.50 4.5 - 13.0 K/cmm [facility] RBC 4.62 4.50 - 5.30 M/cmm [facility] Hemoglobin 12.8(L) 13.0 - 16.0 gm/dl [facility] HCT 37.4 37.0 - 49.0 % [facility] MCV 81 78 - 98 fl [facility] MCH 27.6 pg [facility] MCHC 34.1 gm/dl [facility] PLT 346(H) 156 - 312 K/cmm [facility] RDW-CV 15.2 % [facility] Comment:[facility] [place] [place] 03/06/2005 6:25 EDT 03/06/2005 6:32 EDT Allison Alarcon MD HEMATOLOGY & PF4 ORDERABLES Final Result Performing Organization Address [facility] Co de Phone Number [facility] [address] [place] [address] * T4 FREE (03/06/2005 6:25 EDT) Free T4 1.0 0.8 - 1.8 ng/dl [facility] 03/06/2005 6:25 EDT 03/06/2005 6:32 EDT Allison Alarcon MD CHEMISTRY & BLOOD GAS ORDERA BLES Final Result Performing Organization Address [facility] de Phone Number [facility] [address] [place] [address] * T3 FREE (03/06/2005 6:25 EDT) T3, Free 2.6 2.3 - 4.2 pg/mL [facility] 03/06/2005 6:25 EDT 03/06/2005 6:32 EDT Allison Alarcon MD CHEMISTRY & BLOOD GAS ORDERA BLES Final Result Performing Organization Address [facility]/ZIP Co de Phone Number [facility] [address] [place] [address] * CREATININE (03/06/2005 6:25 EDT) Creatinine 0.6 0.6 - 1.2 mg/dl [facility] Comment:Performed at [place], [place] 03/06/2005 6:25 EDT 03/06/2005 6:32 EDT us Allison Alarcon MD HISTORICAL LAB FOR SQ LOAD F inal Result Performing Organization Address [facility] de Phone Number [facility] [address] [place] [address] * (ABNORMAL) BUN (03/06/2005 6:25 EDT) Pathologist [facility] BUN 7(L) 8 - 21 mg/dl [facility] Comment:Performed at [place], [place] 03/06/2005 6:25 EDT 03/06/2005 6:32 EDT us Allison Alarcon MD CHEMISTRY & BLOOD GAS ORDERA BLES Final Result Performing Organization Address [facility] de Phone Number [facility] [address] [place] [address] * (ABNORMAL) AST (03/06/2005 6:25 EDT) AST 155(H) 16 - 38 U/L [facility] Comment:Performed at [place], [place] 03/06/2005 6:25 EDT 03/06/2005 6:32 EDT us Allison Alarcon MD CHEMISTRY & BLOOD GAS ORDERA BLES Final Result Performing Organization Address [facility] Co de Phone Number [facility] [address] [place] [address] * (ABNORMAL) ALT (03/06/2005 6:25 EDT) ALT 397(H) 10 - 45 U/L [facility] Comment:Performed at [place], [place] 03/06/2005 6:25 EDT 03/06/2005 6:32 EDT Allison Alarcon MD CHEMISTRY & BLOOD GAS ORDERA BLES Final Result Performing Organization Address [facility] de Phone Number [facility] [address] [place] [address] * SODIUM (03/01/2005 6:55 EDT) Sodium 140 136 - 145 mEq/L [facility] Comment:Performed at [place], [place] 03/01/2005 6:55 EDT 03/01/2005 7:29 EDT Allison Alarcon MD CHEMISTRY & BLOOD GAS ORDERA BLES Final Result Performing Organization Address [facility] de Phone Number [facility] [address] [place] [address] * (ABNORMAL) ELECTROLYTES (02/28/2005 6:30 EDT) Pathologist [facility] Sodium 143 136 - 145 mEq/L [facility] Potassium 4.2 3.6 - 5.2 mEq/L [facility] Chloride 107 96 - 110 mEq/L [facility] CO2 23(L) 24 - 32 mEq/L [facility] Comment:Performed at [place], [place] 02/28/2005 6:30 EDT 02/28/2005 8:22 EDT Allison Alarcon MD CHEMISTRY & BLOOD GAS ORDERA BLES Final Result Performing Organization Address [facility] de Phone Number [facility] [address] [place] [address] * CREATININE (02/28/2005 6:30 EDT) Creatinine 0.7 0.6 - 1.2 mg/dl [facility] Comment:Performed at [facility], [place], [place] 02/28/2005 6:30 EDT 02/28/2005 8:22 EDT us Allison Alarcon MD HISTORICAL LAB FOR SQ LOAD F inal Result Performing Organization Address [facility] de Phone Number [facility] [address] [place] [address] * BUN (02/28/2005 6:30 EDT) BUN 14 8 - 21 mg/dl [facility] Comment:Performed at [facility], [place], [place] 02/28/2005 6:30 EDT 02/28/2005 8:22 EDT us Allison Alarcon MD CHEMISTRY & BLOOD GAS ORDERA BLES Final Result Performing Organization Address [facility] de Phone Number [facility] [address] [place] [address] * SODIUM (02/26/2005 8:52 EDT) Sodium 144 136 - 145 mEq/L [facility] Comment:Performed at [facility], [place], [place] 02/26/2005 8:52 EDT 02/26/2005 8:54 EDT us Allison Alarcon MD CHEMISTRY & BLOOD GAS ORDERA BLES Final Result Performing Organization Address [facility] de Phone Number [facility] [address] [place] [address] * HEPATITIS C ANTIBODY (02/26/2005 8:52 EDT) Hepatitis C Ab Neg [facility] 02/26/2005 8:52 EDT 02/26/2005 8:54 EDT us Allison Alarcon MD CHEMISTRY & BLOOD GAS ORDERA BLES Final Result Performing Organization Address [facility] Co de Phone Number [facility] [address] [place] [address] * HEPATITIS B SURFACE ANTIBODY (02/26/2005 8:52 EDT) Pathologist [facility] Hepatitis B Surface Ab Indeterminate - consider retesting or reimmunization. [facility] 02/26/2005 8:52 EDT 02/26/2005 8:54 EDT Allison Alarcon MD CHEMISTRY & BLOOD GAS ORDERA BLES Final Result Performing Organization Address [facility] Co de Phone Number [facility] [address] [place] [address] * HEPATITIS A TOTAL ANTIBODY (02/26/2005 8:52 EDT) Pathologist [facility] Hep A Antibody Neg [facility] 02/26/2005 8:52 EDT 02/26/2005 8:54 EDT Allison Alarcon MD CHEMISTRY & BLOOD GAS ORDERA BLES Final Result Performing Organization Address [facility] Co de Phone Number [facility] [address] [place] [address] * BUN (02/26/2005 8:52 EDT) Pathologist [facility] BUN 14 8 - 21 mg/dl [facility] Comment:Performed at [place], [place] 02/26/2005 8:52 EDT 02/26/2005 8:54 EDT Allison Alarcon MD CHEMISTRY & BLOOD GAS ORDERA BLES Final Result Performing Organization Address [facility] Co de Phone Number [facility] [address] [place] [address] * (ABNORMAL) AST (02/26/2005 8:52 EDT) Pathologist [facility] AST 88(H) 16 - 38 U/L [facility] Comment:Performed at [place], [place] 02/26/2005 8:52 EDT 02/26/2005 8:54 EDT us Allison Alarcon MD CHEMISTRY & BLOOD GAS ORDERA BLES Final Result Performing Organization Address [facility] Co de Phone Number [facility] [address] [place] [address] * (ABNORMAL) ALT (02/26/2005 8:52 EDT) ALT 274(H) 10 - 45 U/L [facility] Comment:Performed at [place], [place] 02/26/2005 8:52 EDT 02/26/2005 8:54 EDT us Allison Alarcon MD CHEMISTRY & BLOOD GAS ORDERA BLES Final Result Performing Organization Address [facility] de Phone Number [facility] [address] [place] [address] * ALKALINE PHOSPHATASE (02/26/2005 8:52 EDT) Total Alkaline Phosphatase 227 130 - 525 U/L [facility] Comment:Performed at [place], [place] 02/26/2005 8:52 EDT 02/26/2005 8:54 EDT us Allison Alarcon MD CHEMISTRY & BLOOD GAS ORDERA BLES Final Result Performing Organization Address [facility] de Phone Number [facility] [address] [place] [address] * ALBUMIN (02/26/2005 8:52 EDT) Albumin 4.6 3.0 - 5.5 g/dl [facility] Comment:Performed at [place], [place] 02/26/2005 8:52 EDT 02/26/2005 8:54 EDT us Allison Alarcon MD CHEMISTRY & BLOOD GAS ORDERA BLES Final Result Performing Organization Address [facility] Co de Phone Number [facility] [address] [place] [address] * (ABNORMAL) SODIUM (02/24/2005 10:40 EDT) Sodium 135(L) 136 - 145 mEq/L [facility] Comment:Performed at [place], [place] 02/24/2005 10:4 0 EDT 02/24/2005 10:58 EDT us Allison Alarcon MD CHEMISTRY & BLOOD GAS ORDERA BLES Final Result [facility] [address] [place] [address] * SODIUM (02/22/2005 6:00 EDT) Sodium 144 136 - 145 mEq/L [facility] Comment:Performed at [place], [place] 02/22/2005 6:00 EDT 02/22/2005 6:53 EDT us Allison Alarcon MD CHEMISTRY & BLOOD GAS ORDERA BLES Final Result [facility] [address] [place] [address] * (ABNORMAL) SODIUM (02/21/2005 10:22 EDT) Sodium 154(H) 136 - 145 mEq/L [facility] Comment: BY F.S. Performed at [place], [place] 02/21/2005 10:2 2 EDT 02/21/2005 10:24 EDT us Allison Alarcon MD CHEMISTRY & BLOOD GAS ORDERA BLES Final Result Performing Organization Address City/[facility]/ZIP Co de Phone Number [facility] [address] [place] [address] * (ABNORMAL) SODIUM (02/20/2005 6:00 EDT) Sodium 153(H) 136 - 145 mEq/L [facility] Comment: Sample retested, result confirmed Performed at [facility] [place], [place] 02/20/2005 6:00 EDT 02/20/2005 6:37 EDT us Allison Alarcon MD CHEMISTRY & BLOOD GAS ORDERA BLES Final Result Performing Organization Address [facility]/ZIP Co de Phone Number [facility] [address] [place] [address] * SODIUM (02/18/2005 8:06 EDT) Sodium 139 136 - 145 mEq/L [facility] Comment:Performed at [facility] [place], [place] 02/18/2005 8:06 EDT 02/18/2005 8:08 EDT us Allison Alarcon MD CHEMISTRY & BLOOD GAS ORDERA BLES Final Result Performing Organization Address [facility] Co de Phone Number [facility] [address] [place] [address] * (ABNORMAL) SODIUM (02/17/2005 6:20 EDT) Sodium 149(H) 136 - 145 mEq/L [facility] 02/17/2005 6:20 EDT 02/17/2005 6:45 EDT us Allison Alarcon MD CHEMISTRY & BLOOD GAS ORDERA BLES Final Result Performing Organization Address [facility] Co de Phone Number [facility] [address] [place] [address] * (ABNORMAL) AST (02/17/2005 6:20 EDT) AST 176(H) 16 - 38 U/L [facility] 02/17/2005 6:20 EDT 02/17/2005 6:45 EDT us Allison Alarcon MD CHEMISTRY & BLOOD GAS ORDERA BLES Final Result Performing Organization Address [facility]/ZIP Co de Phone Number [facility] [address] [place] [address] * (ABNORMAL) ALT (02/17/2005 6:20 EDT) ALT 338(H) 10 - 45 U/L [facility] 02/17/2005 6:20 EDT 02/17/2005 6:45 EDT Allison Alarcon MD CHEMISTRY & BLOOD GAS ORDERA BLES Final Result Performing Organization Address [facility] de Phone Number [facility] [address] [place] [address] * (ABNORMAL) SODIUM (02/16/2005 6:00 EDT) Sodium 154(H) 136 - 145 mEq/L [facility] Comment:Performed at [place], [place] 02/16/2005 6:00 EDT 02/16/2005 7:48 EDT us Allison Alarcon MD CHEMISTRY & BLOOD GAS ORDERA BLES Final Result Performing Organization Address [facility] de Phone Number [facility] [address] [place] [address] * (ABNORMAL) SODIUM (02/15/2005 12:52 EDT) Sodium 155(H) 136 - 145 mEq/L [facility] Comment:Performed at [place], [place] 02/15/2005 12:5 2 EDT 02/15/2005 12:54 EDT Allison Alarcon MD CHEMISTRY & BLOOD GAS ORDERA BLES Final Result Performing Organization Address [facility] de Phone Number [facility] [address] [place] [address] * UA REFLEX (02/15/2005 10:17 EDT) UA Billing Microscopic not indicated. [facility] 02/15/2005 10:1 7 EDT 02/15/2005 10:31 EDT Allison Alarcon MD URINALYSIS ORDERABLES Final Result [facility] [address] [place] [address] * URINALYSIS (02/15/2005 10:17 EDT) Color, UA [facility] Clarity, UA [facility] Glucose, UA NORM [facility] Bilirubin, UA NEG [facility] Ketones, UA NEG [facility] Specific [place], Urine 1.005 - 1.02 [facility] Blood, UA NEG [facility] pH, UA 5.0 - 9.0 [facility] Protein, UA NEG [facility] Urobilinogen, UA NORM mg/dL [facility] Nitrite, UA NEG [facility] Leuk Esterase NEG [facility] 02/15/2005 10:1 7 EDT 02/15/2005 10:31 EDT Allison Alarcon MD URINALYSIS ORDERABLES Final Result [facility] [address] [place] [address] * URINALYSIS (02/15/2005 10:17 EDT) Color, UA Yellow [facility] Clarity, UA Clear [facility] Glucose, UA Norm NORM [facility] Bilirubin, UA Neg NEG [facility] Ketones, UA Neg NEG [facility] Specific [place], Urine 1.010 1.005 - 1.02 [facility] Blood, UA Neg NEG [facility] pH, UA 6.0 5.0 - 9.0 [facility] Protein, UA Neg NEG [facility] Urobilinogen, UA Norm NORM mg/dL [facility] Nitrite, UA Neg NEG [facility] Leuk Esterase Neg NEG [facility] 02/15/2005 10:1 7 EDT 02/15/2005 10:31 EDT Allison Alarcon MD URINALYSIS ORDERABLES Final Result Performing Organization Address [facility] de Phone Number [facility] [address] [place] [address] * (ABNORMAL) PHOSPHORUS (02/15/2005 6:20 EDT) Phosphorus 6.2(H) 2.9 - 5.4 mg/dl [facility] Comment:Performed at [facility] [employer] [place], [place] 02/15/2005 6:20 EDT 02/15/2005 6:34 EDT Allison Alarcon MD CHEMISTRY & BLOOD GAS ORDERA BLES Final Result Performing Organization Address [facility] de Phone Number [facility] [address] [place] [address] * PREALBUMIN (02/15/2005 6:20 EDT) Prealbumin 34 mg/dl [facility] Comment:Slightly lipemic 02/15/2005 6:20 EDT 02/15/2005 6:34 EDT Allison Alarcon MD CHEMISTRY & BLOOD GAS ORDERA BLES Final Result Performing Organization Address [facility] de Phone Number [facility] [address] [place] [address] * (ABNORMAL) SODIUM (02/15/2005 6:20 EDT) Sodium 158(HH) 136 - 145 mEq/L [facility] Comment: Sample retested, result confirmed [facility] [place], [place] 02/15/2005 6:20 EDT 02/15/2005 6:34 EDT Allison Alarcon MD CHEMISTRY & BLOOD GAS ORDERA BLES Final Result Performing Organization Address [facility] de Phone Number [facility] [address] [place] [address] * MAGNESIUM (02/15/2005 6:20 EDT) Magnesium 2.2 1.7 - 2.8 mg/dl [facility] Comment:Performed at [place], [place] 02/15/2005 6:20 EDT 02/15/2005 6:34 EDT Allison Alarcon MD CHEMISTRY & BLOOD GAS ORDERA BLES Final Result Performing Organization Address City/[facility]/ZIP Co de Phone Number [facility] [address] [place] [address] * (ABNORMAL) LIPID PROFILE (INCLUDES CHOLESTEROL, TRIGLYCERIDES, HDL, LDL) (02/15/2005 6:20 EDT) Cholesterol 283 mg/dl [facility] Comment: Desirable:<200 Borderline:200-239 High Risk:>[id number] Sample retested, result confirmed Triglycerides 958(H) 34 - 165 mg/dl [facility] HDL 39 mg/dl [facility] Comment: Highly Desirable:>60 Desirable:35-60 High Risk:<35 LDL, Calculated Triglyceride greater than 400 mg/dl, LDL calculation invalid. Desirable:<130 Borderline:130- 159 High Risk:>oi=411 mg/dl [facility] Chol/HDL Ratio 7.3 [facility] Fasting? Unknown Performed at [place], [place] [facility] 02/15/2005 6:20 EDT 02/15/2005 6:34 EDT us Allison Alarcon MD CHEMISTRY & BLOOD GAS ORDERA BLES Final Result Performing Organization Address City/[facility]/ZIP Co de Phone Number [facility] [address] [place] [address] * CREATININE (02/15/2005 6:20 EDT) Creatinine 0.8 0.6 - 1.2 mg/dl [facility] Comment:Performed at [place], [place] 02/15/2005 6:20 EDT 02/15/2005 6:34 EDT us Allison Alarcon MD HISTORICAL LAB FOR SQ LOAD F inal Result Performing Organization Address [facility] de Phone Number [facility] [address] [place] [address] * BUN (02/15/2005 6:20 EDT) BUN 17 8 - 21 mg/dl [facility] Comment:Performed at [place], [place] 02/15/2005 6:20 EDT 02/15/2005 6:34 EDT us Allison Alarcon MD CHEMISTRY & BLOOD GAS ORDERA BLES Final Result Performing Organization Address [facility] de Phone Number [facility] [address] [place] [address] * (ABNORMAL) AST (02/15/2005 6:20 EDT) AST 134(H) 16 - 38 U/L [facility] Comment:Performed at [place], [place] 02/15/2005 6:20 EDT 02/15/2005 6:34 EDT us Allison Alarcon MD CHEMISTRY & BLOOD GAS ORDERA BLES Final Result Performing Organization Address [facility] de Phone Number [facility] [address] [place] [address] * (ABNORMAL) ALT (02/15/2005 6:20 EDT) ALT 391(H) 10 - 45 U/L [facility] Comment:Performed at [place], [place] 02/15/2005 6:20 EDT 02/15/2005 6:34 EDT us Allison Alarcon MD CHEMISTRY & BLOOD GAS ORDERA BLES Final Result Performing Organization Address [facility] Co de Phone Number [facility] [address] [place] [address] * ALKALINE PHOSPHATASE (02/15/2005 6:20 EDT) Total Alkaline Phosphatase 223 130 - 525 U/L [facility] Comment:Performed at [place], [place] 02/15/2005 6:20 EDT 02/15/2005 6:34 EDT us Allison Alarcon MD CHEMISTRY & BLOOD GAS ORDERA BLES Final Result Performing Organization Address [facility] Co de Phone Number [facility] [address] [place] [address] * SODIUM (02/13/2005 6:25 EDT) Sodium 140 136 - 145 mEq/L [facility] Comment:Performed at [place], [place] 02/13/2005 6:25 EDT 02/13/2005 6:38 EDT us Allison Alarcon MD CHEMISTRY & BLOOD GAS ORDERA BLES Final Result Performing Organization Address [facility] Co de Phone Number [facility] [address] [place] [address] * (ABNORMAL) SODIUM (02/11/2005 6:50 EDT) Sodium 135(L) 136 - 145 mEq/L [facility] Comment:Performed at [place], [place] 02/11/2005 6:50 EDT 02/11/2005 7:07 EDT us Allison Alarcon MD CHEMISTRY & BLOOD GAS ORDERA BLES Final Result Performing Organization Address [facility] Co de Phone Number [facility] [address] [place] [address] * (ABNORMAL) SODIUM (02/08/2005 6:40 EDT) Sodium 147(H) 136 - 145 mEq/L [facility] Comment:Performed at [place], [place] 02/08/2005 6:40 EDT 02/08/2005 6:43 EDT Allison Alarcon MD CHEMISTRY & BLOOD GAS ORDERA BLES Final Result Performing Organization Address [facility] de Phone Number [facility] [address] [place] [address] * SODIUM (02/07/2005 6:00 EDT) Sodium 145 136 - 145 mEq/L [facility] Comment:Performed at [place], [place] 02/07/2005 6:00 EDT 02/07/2005 6:33 EDT Allison Alarcon MD CHEMISTRY & BLOOD GAS ORDERA BLES Final Result Performing Organization Address [facility] de Phone Number [facility] [address] [place] [address] * (ABNORMAL) SODIUM (02/06/2005 7:00 EDT) Sodium 146(H) 136 - 145 mEq/L [facility] Comment: Sample retested, result confirmed Performed at [place], [place] 02/06/2005 7:00 EDT 02/06/2005 7:03 EDT Allison Alarcon MD CHEMISTRY & BLOOD GAS ORDERA BLES Final Result Performing Organization Address [facility] de Phone Number [facility] [address] [place] [address] * (ABNORMAL) ELECTROLYTES (02/03/2005 10:00 EDT) Sodium 135(L) 136 - 145 mEq/L [facility] Potassium 5.2 3.6 - 5.2 mEq/L [facility] Chloride 96 96 - 110 mEq/L [facility] CO2 27 24 - 32 mEq/L [facility] Comment:Performed at [place], [place] 02/03/2005 10:0 0 EDT 02/03/2005 10:19 EDT Allison Alarcon MD CHEMISTRY & BLOOD GAS ORDERA BLES Final Result Performing Organization Address [facility] Co de Phone Number [facility] [address] [place] [address] * (ABNORMAL) SODIUM (02/01/2005 11:47 EDT) Sodium 134(L) 136 - 145 mEq/L [facility] Comment:Performed at [place], [place] 02/01/2005 11:4 7 EDT 02/01/2005 11:49 EDT Allison Alarcon MD CHEMISTRY & BLOOD GAS ORDERA BLES Final Result Performing Organization Address [facility] Co de Phone Number [facility] [address] [place] [address] * PREALBUMIN (01/30/2005 6:45 EDT) Prealbumin 25 mg/dl [facility] 01/30/2005 6:45 EDT 01/30/2005 7:18 EDT Allison Alarcon MD CHEMISTRY & BLOOD GAS ORDERA BLES Final Result Performing Organization Address [facility] Co de Phone Number [facility] [address] [place] [address] * ELECTROLYTES (01/30/2005 6:45 EDT) Sodium 144 136 - 145 mEq/L [facility] Potassium 4.4 3.6 - 5.2 mEq/L [facility] Chloride 105 96 - 110 mEq/L [facility] CO2 27 24 - 32 mEq/L [facility] Comment:Performed at [place], [place] 01/30/2005 6:45 EDT 01/30/2005 7:18 EDT Allison Alarcon MD CHEMISTRY & BLOOD GAS ORDERA BLES Final Result Performing Organization Address [facility]/ZIP Co de Phone Number [facility] [address] [place] [address] * CREATININE (01/30/2005 6:45 EDT) Creatinine 0.7 0.6 - 1.2 mg/dl [facility] Comment:Performed at [facility] [place] 01/30/2005 6:45 EDT 01/30/2005 7:18 EDT us Allison Alarcon MD HISTORICAL LAB FOR SQ LOAD F inal Result Performing Organization Address [facility] Co de Phone Number [facility] [address] [place] [address] * BUN (01/30/2005 6:45 EDT) BUN 12 8 - 21 mg/dl [facility] Comment:Performed at [facility] 01/30/2005 6:45 EDT 01/30/2005 7:18 EDT us Allison Alarcon MD CHEMISTRY & BLOOD GAS ORDERA BLES Final Result Performing Organization Address [facility] de Phone Number [facility] [address] [place] [address] * (ABNORMAL) SODIUM (01/28/2005 6:40 EDT) Sodium 151(H) 136 - 145 mEq/L [facility] Comment:Performed at [facility] [employer] [place], [place] 01/28/2005 6:40 EDT 01/28/2005 6:41 EDT Allison Alarcon MD CHEMISTRY & BLOOD GAS ORDERA BLES Final Result Performing Organization Address [facility] Co de Phone Number [facility] [address] [place] [address] * (ABNORMAL) SODIUM (01/27/2005 7:10 EDT) Sodium 155(H) 136 - 145 mEq/L [facility] 01/27/2005 7:10 EDT 01/27/2005 7:40 EDT Allison Alarcon MD CHEMISTRY & BLOOD GAS ORDERA BLES Final Result Performing Organization Address [facility] de Phone Number [facility] [address] [place] [address] * (ABNORMAL) SODIUM (01/26/2005 7:45 EDT) Sodium 148(H) 136 - 145 mEq/L [facility] Comment:Heparinized plasma. 01/26/2005 7:45 EDT 01/26/2005 8:47 EDT Allison Alarcon MD CHEMISTRY & BLOOD GAS ORDERA BLES Final Result Performing Organization Address [facility] de Phone Number [facility] [address] [place] [address] * (ABNORMAL) SODIUM (01/25/2005 11:15 EDT) Sodium 152(H) 136 - 145 mEq/L [facility] Comment:Performed at [facility] [place], [place] 01/25/2005 11:1 5 EDT 01/25/2005 11:17 EDT Allison Alarcon MD CHEMISTRY & BLOOD GAS ORDERA BLES Final Result Performing Organization Address [facility] de Phone Number [facility] [address] [place] [address] * (ABNORMAL) SODIUM (01/25/2005 6:45 EDT) Sodium 153(H) 136 - 145 mEq/L [facility] Comment: Sample retested, result confirmed Performed at [facility], [place], [place] 01/25/2005 6:45 EDT 01/25/2005 7:13 EDT us Allison Alarcon MD CHEMISTRY & BLOOD GAS ORDERA BLES Final Result Performing Organization Address [facility] Co de Phone Number [facility] [address] [place] [address] * SODIUM (01/24/2005 6:45 EDT) Sodium 140 136 - 145 mEq/L [facility] Comment:Performed at [place], [place] 01/24/2005 6:45 EDT 01/24/2005 6:53 EDT us Allison Alarcon MD CHEMISTRY & BLOOD GAS ORDERA BLES Final Result Performing Organization Address [facility] de Phone Number [facility] [address] [place] [address] * SODIUM (01/23/2005 6:50 EDT) Sodium 136 136 - 145 mEq/L [facility] Comment:Performed at [place], [place] 01/23/2005 6:50 EDT 01/23/2005 7:20 EDT us Allison Alarcon MD CHEMISTRY & BLOOD GAS ORDERA BLES Final Result Performing Organization Address [facility] de Phone Number [facility] [address] [place] [address] * (ABNORMAL) LIPID PROFILE (INCLUDES CHOLESTEROL, TRIGLYCERIDES, HDL, LDL) (01/23/2005 6:50 EDT) Cholesterol 154 mg/dl [facility] Comment: Desirable:<200 Borderline:200-239 High Risk:>[id number] Triglycerides 426(H) 34 - 165 mg/dl [facility] HDL 32 mg/dl [facility] Comment: Highly Desirable:>60 Desirable:35-60 High Risk:<35 Slightly lipemic LDL, Calculated Triglyceride greater than 400 mg/dl, LDL calculation invalid. Desirable:<130 Borderline:130- 159 High Risk:>[id number] Slightly lipemic mg/dl [facility] Chol/HDL Ratio 4.8 Slightly lipemic [facility] Fasting? Unknown Performed at [facility], [place], [place] [facility] 01/23/2005 6:50 EDT 01/23/2005 7:20 EDT us Allison Alarcon MD CHEMISTRY & BLOOD GAS ORDERA BLES Final Result Performing Organization Address [facility] de Phone Number [facility] [address] [place] [address] * (ABNORMAL) AST (01/23/2005 6:50 EDT) AST 44(H) 16 - 38 U/L [facility] Comment:Performed at [place], [place] 01/23/2005 6:50 EDT 01/23/2005 7:20 EDT us Allison Alarcon MD CHEMISTRY & BLOOD GAS ORDERA BLES Final Result Performing Organization Address [facility] de Phone Number [facility] [address] [place] [address] * (ABNORMAL) ALT (01/23/2005 6:50 EDT) ALT 105(H) 10 - 45 U/L [facility] Comment:Performed at [place], [place] 01/23/2005 6:50 EDT 01/23/2005 7:20 EDT us Allison Alarcon MD CHEMISTRY & BLOOD GAS ORDERA BLES Final Result Performing Organization Address [facility] de Phone Number [facility] [address] [place] [address] * ALKALINE PHOSPHATASE (01/23/2005 6:50 EDT) Total Alkaline Phosphatase 192 130 - 525 U/L [facility] Comment:Performed at [place], [place] 01/23/2005 6:50 EDT 01/23/2005 7:20 EDT us Allison Alarcon MD CHEMISTRY & BLOOD GAS ORDERA BLES Final Result Performing Organization Address [facility] Co de Phone Number [facility] [address] [place] [address] * (ABNORMAL) SODIUM (01/22/2005 6:25 EDT) Sodium 135(L) 136 - 145 mEq/L [facility] Comment:Performed at [place], [place] 01/22/2005 6:25 EDT 01/22/2005 6:34 EDT us Allison Alarcon MD CHEMISTRY & BLOOD GAS ORDERA BLES Final Result Performing Organization Address [facility] de Phone Number [facility] [address] [place] [address] * (ABNORMAL) SODIUM (01/21/2005 16:10 EDT) Sodium 130(L) 136 - 145 mEq/L [facility] Comment:Performed at [place], [place] 01/21/2005 16:1 0 EDT 01/21/2005 16:12 EDT us Allison Alarcon MD CHEMISTRY & BLOOD GAS ORDERA BLES Final Result Performing Organization Address [facility] de Phone Number [facility] [address] [place] [address] * (ABNORMAL) SODIUM (01/21/2005 6:50 EDT) Sodium 129(L) 136 - 145 mEq/L [facility] Comment:Performed at [place], [place] 01/21/2005 6:50 EDT 01/21/2005 6:59 EDT Allison Alarcon MD CHEMISTRY & BLOOD GAS ORDERA BLES Final Result Performing Organization Address [facility] Co de Phone Number [facility] [address] [place] [address] * BACTERIAL CULTURE, URINE (01/20/2005 13:30 EDT) Specimen Description Urine [facility] Result No growth [facility] Report Status Final [id number] [facility] 01/20/2005 13:3 0 EDT 01/20/2005 16:43 EDT Allison Alarcon MD MICROBIOLOGY - GENERAL ORDER LYNDSEY Final Result [facility] [address] [place] [address] * (ABNORMAL) UA WITH MICROSCOPIC (01/20/2005 13:30 EDT) Color, UA Yellow [facility] Clarity, UA Clear [facility] Glucose, UA Norm NORM [facility] Bilirubin, UA Neg NEG [facility] Ketones, UA Neg NEG [facility] Specific [place], Urine >1.030(H) 1.005 - 1.02 [facility] [...] /HPF [facility] Squam Epithel, UA Few(A) NS /HPF FL KRISTOFER [facility] Renal Epithel, UA None seen NS /HPF FL KRISTOFER [facility] Bacteria, UA None seen NS /HPF FRANKIE R [facility] Crystals, UA None seen /HPF TRUEE R [facility] Hyaline Casts, UA None seen /LPF FL ETCHHILDA [facility] UA Comment Microscopic results are unreliable on urines unrefrig >2hrs or refrig >8hrs. [facility] Mucus, UA Present [facility] Refractometer SG,Urine 1.044(H) 1.005 - 1.02 [facility] Comment:Refractometer specif ic gravity 01/20/2005 13:3 0 EDT 01/20/2005 13:47 EDT Allison Alarcon MD URINALYSIS ORDERABLES Final Result Performing Organization Address City/[facility]/ZIP Co de Phone Number [facility] [address] [place] [address] * UA WITH MICROSCOPIC (01/20/2005 13:30 EDT) Color, UA [facility] Clarity, UA [facility] Glucose, UA NORM [facility] Bilirubin, UA NEG FLETCH ER [facility] Ketones, UA NEG [facility] Specific [place], Urine 1.005 - 1.02 [facility] Blood, UA NEG [facility] pH, UA 5.0 - 9.0 [facility] Protein, UA NEG [facility] Urobilinogen, UA NORM mg/dL [facility] Nitrite, UA NEG [facility] Leuk Esterase NEG FLEMARSHA ER [facility] WBC, UA 0 - 5 /HPF [facility] RBC, UA 0 - 5 /HPF [facility] Squam Epithel, UA NS /HPF [facility] Renal Epithel, UA NS /HPF [facility] Bacteria, UA NS /HPF FRANKIE R [facility] Crystals, UA /HPF [facility] Hyaline Casts, UA /LPF [facility] UA Comment [facility] 01/20/2005 13:3 0 EDT 01/20/2005 13:47 EDT Allison Alarcon MD URINALYSIS ORDERABLES Final Result Performing Organization Address City/[facility]/ZIP Co de Phone Number [facility] [address] [place] [address] * CULTURE IF UA POSITIVE (01/20/2005 13:30 EDT) Culture if Indicated Culture indicated by urinalysis results. [facility] 01/20/2005 13:3 0 EDT 01/20/2005 13:47 EDT us Allison Alarcon MD MICROBIOLOGY - GENERAL ORDER LYNDSEY Final Result [facility] [address] [place] [address] * SODIUM (01/20/2005 6:30 EDT) Sodium 136 136 - 145 mEq/L [facility] 01/20/2005 6:30 EDT 01/20/2005 7:06 EDT us Allison Alarcon MD CHEMISTRY & BLOOD GAS ORDERA BLES Final Result Performing Organization Address [facility]/ZIP Co de Phone Number [facility] [address] [place] [address] * SODIUM (01/19/2005 7:45 EDT) Sodium 143 136 - 145 mEq/L [facility] Comment: SHORT SAMPLED Performed at [place], [place] 01/19/2005 7:45 EDT 01/19/2005 7:53 EDT us Allison Alarcon MD CHEMISTRY & BLOOD GAS ORDERA BLES Final Result Performing Organization Address [facility] Co de Phone Number [facility] [address] [place] [address] * (ABNORMAL) SODIUM (01/18/2005 6:15 EDT) Sodium 135(L) 136 - 145 mEq/L [facility] Comment:Performed at [facility] [place], [place] 01/18/2005 6:15 EDT 01/18/2005 6:31 EDT us Allison Alarcon MD CHEMISTRY & BLOOD GAS ORDERA BLES Final Result Performing Organization Address City/[facility]/ZIP Co de Phone Number [facility] [address] [place] [address] * SODIUM (01/17/2005 6:45 EDT) Sodium 141 136 - 145 mEq/L [facility] Comment:Performed at [facility], [place], [place] 01/17/2005 6:45 EDT 01/17/2005 6:48 EDT us Allison Alarcon MD CHEMISTRY & BLOOD GAS ORDERA BLES Final Result Performing Organization Address [facility] de Phone Number [facility] [address] [place] [address] * (ABNORMAL) LIPID PROFILE (INCLUDES CHOLESTEROL, TRIGLYCERIDES, HDL, LDL) (01/17/2005 6:45 EDT) Cholesterol 151 mg/dl [facility] Comment: Desirable:<200 Borderline:200-239 High Risk:>ts=[id number] Triglycerides 425(H) 34 - 165 mg/dl [facility] Comment:Performed at [facility], [place], [place] HDL 26 mg/dl [facility] Comment: Highly Desirable:>60 Desirable:35-60 High Risk:<35 LDL, Calculated Triglyceride greater than 400 mg/dl, LDL calculation invalid. Desirable:<130 Borderline:130- 159 High Risk:>ty=960 mg/dl [facility] Chol/HDL Ratio 5.8 [facility] Fasting? Unknown [facility] 01/17/2005 6:45 EDT 01/17/2005 6:48 EDT Allison Alarcon MD CHEMISTRY & BLOOD GAS ORDERA BLES Final Result Performing Organization Address [facility] Co de Phone Number [facility] [address] [place] [address] * T4 FREE (01/17/2005 6:45 EDT) Free T4 1.3 0.8 - 1.8 ng/dl [facility] 01/17/2005 6:45 EDT 01/17/2005 6:48 EDT Allison Alarcon MD CHEMISTRY & BLOOD GAS ORDERA BLES Final Result Performing Organization Address City/[facility] Co de Phone Number [facility] [address] [place] [address] * (ABNORMAL) AST (01/17/2005 6:45 EDT) Pathologist [facility] AST 49(H) 16 - 38 U/L [facility] Comment:Performed at [place], [place] 01/17/2005 6:45 EDT 01/17/2005 6:48 EDT us Allison Alarcon MD CHEMISTRY & BLOOD GAS ORDERA BLES Final Result Performing Organization Address [facility] de Phone Number [facility] [address] [place] [address] * (ABNORMAL) ALT (01/17/2005 6:45 EDT) Pathologist [facility] ALT 170(H) 10 - 45 U/L [facility] Comment:Performed at [place], [place] 01/17/2005 6:45 EDT 01/17/2005 6:48 EDT us Allison Alarcon MD CHEMISTRY & BLOOD GAS ORDERA BLES Final Result Performing Organization Address [facility] de Phone Number [facility] [address] [place] [address] * ALKALINE PHOSPHATASE (01/17/2005 6:45 EDT) Pathologist [facility] Total Alkaline Phosphatase 149 130 - 525 U/L [facility] Comment:Performed at [place], [place] 01/17/2005 6:45 EDT 01/17/2005 6:48 EDT us Allison Alarcon MD CHEMISTRY & BLOOD GAS ORDERA BLES Final Result Performing Organization Address [facility] Co de Phone Number [facility] [address] [place] [address] * SODIUM (01/16/2005 6:45 EDT) Pathologist [facility] Sodium 137 136 - 145 mEq/L [facility] Comment:Performed at [facility], [place], [place] 01/16/2005 6:45 EDT 01/16/2005 7:16 EDT us Allison Alarcon MD CHEMISTRY & BLOOD GAS ORDERA BLES Final Result [facility] [address] [place] [address] documented in this encounter Visit Diagnoses Not on filedocumented in this encounter
--- OUTSIDE RECORDS SUMMARY | 2024-06-28 13:56 | XMS_ITS | Encounter Summary ---
Author Organization [facility] Address [address] [place] [address] Care Team Providers Care Cryptological Technician Name Role Phone Unavailable Primary Care Provider Unavailabl e Encounter Details Date Type Department Care Team (Late st Contact Info) Description 11/28/2007 8:34 EDT - 11/28/2007 11:59 EDT Hospital Encounter [facility] [place] [address] [place] [address] Desean Huerta MD [address] [facility]. [address] [place] [phone] Discharge Disposition: Auto Discharge Social History Tobacco [...] Info) Description 07/06/2024 13:40 EST Office Visit [facility] - [facility] [address], [place] [phone] Wilder Zaidi, [address] [facility] [address] [place] [phone] 09/09/2024 10:20 EST Office Visit [facility] Endocrinology - [facility] [address] [place] [address] Day Littlejohn MD PhD [address] [facility] [address] [place] [phone] documented as of this encounter [...] of Diff: Automated [facility] 04/11/2008 8:55 EDT 04/11/2008 9:09 EDT us Default Emergency MD PACKAGES & DNA PROBE ORDERA BLES Final Result Performing Organization Address [facility] Co de Phone Number [facility] [address] [place] [address] * (ABNORMAL) TSH (04/11/2008 8:55 EDT) TSH <0.02(L) 0.35 - 5.00 uIU/mL [facility] 04/11/2008 8:55 EDT 04/11/2008 9:09 EDT us Default Emergency MD CHEMISTRY & BLOOD GAS ORDER LYNDSEY Final Result Performing Organization Address [facility] de Phone Number [facility] [address] [place] [address] * (ABNORMAL) T4 FREE (04/11/2008 8:55 EDT) Free T4 1.7(H) 0.8 - 1.5 ng/dL [facility] 04/11/2008 8:55 EDT 04/11/2008 9:09 EDT us Default Emergency CHEMISTRY & BLOOD GAS ORDER LYNDSEY Final Result Performing Organization Address [facility] Co de Phone Number [facility] [address] [place] [address] * GLUCOSE, SERUM (04/11/2008 8:55 EDT) Glucose, Serum 79 70 - 100 mg/dl [facility] 04/11/2008 8:55 EDT 04/11/2008 9:09 EDT us Default Emergency MD CHEMISTRY & BLOOD GAS ORDER LYNDSEY Final Result Performing Organization Address [facility] de Phone Number [facility] [address] [place] [address] * CREATININE (04/11/2008 8:55 EDT) Creatinine 0.60 0.6 - 1.2 mg/dl [facility] GFR, Calculated Age <18 ml/min/1.7 3m2 [facility] 04/11/2008 8:55 EDT 04/11/2008 9:09 EDT us Default Emergency MD CHEMISTRY & BLOOD GAS ORDER LYNDSEY Final Result Performing Organization Address [facility] Phone Number [facility] [address] [place] [address] * BUN (04/11/2008 8:55 EDT) BUN 14 8 - 21 mg/dl [facility] 04/11/2008 8:55 EDT 04/11/2008 9:09 EDT us Default Emergency MD CHEMISTRY & BLOOD GAS ORDER LYNDSEY Final Result Performing Organization Address [facility] Phone Number [facility] [address] [place] [address] * (ABNORMAL) ELECTROLYTES (04/11/2008 8:55 EDT) Sodium 131(L) 136 - 145 mEq/L [facility] Potassium 4.4 3.5 - 5.0 mEq/L [facility] Chloride 95(L) 96 - 110 mEq/L [facility] CO2 25 24 - 32 mEq/L [facility] 04/11/2008 8:55 EDT 04/11/2008 9:09 EDT us Default Emergency MD CHEMISTRY & BLOOD GAS ORDER LYNDSEY Final Result [facility] [address] [place] [address] * PORTABLE CHEST 1 VIEW (02/12/2008 14:29 [...] have occurred since the January 2005 exam. us Jodi Parr MD IMG DIAGNOSTIC IMAGING ORDERABL ES Final Result * GLUCOSE, GLUCOMETER (02/08/2008 23:38 EDT) Glucose, Fingerstick 88 70 - 100 mg/dl [facility] Anatomical Embalmer ID [id number] Test Performed by Nursing Services [facility] 02/08/2008 23:3 8 EDT 02/09/2008 6:19 EDT us Provider Olga PANG CHEMISTRY & BLOOD GAS ORDERA BLES Final Result [facility] [address] [place] [address] * PHOSPHORUS (02/08/2008 22:45 EDT) Phosphorus 4.0 2.7 - 4.7 mg/dl [facility] 02/08/2008 22:4 5 EDT 02/08/2008 22:58 EDT us Default Emergency MD CHEMISTRY & BLOOD GAS ORDER LYNDSEY Final Result Performing Organization Address [facility] de Phone Number [facility] [address] [place] [address] * (ABNORMAL) MAGNESIUM (02/08/2008 22:45 EDT) Magnesium 1.4(L) 1.7 - 2.8 mg/dl [facility] 02/08/2008 22:4 5 EDT 02/08/2008 22:58 EDT us Default Emergency MD CHEMISTRY & BLOOD GAS ORDER LYNDSEY Final Result Performing Organization Address [facility] de Phone Number [facility] [address] [place] [address] * CALCIUM (02/08/2008 22:45 EDT) Calcium 8.6 8.5 - 10.5 mg/dl [facility] Calculated Calcium 9.3 8.5 - 10.5 mg/dl [facility] 02/08/2008 22:4 5 EDT 02/08/2008 22:58 EDT Default Emergency MD CHEMISTRY & BLOOD GAS ORDER LYNDSEY Final Result Performing Organization Address [facility] de Phone Number [facility] [address] [place] [address] * CORTISOL (02/08/2008 22:45 EDT) Cortisol 9 ug/dl [facility] Comment: 7-9a.m.=4.3-22.4 3-5p.m.=3.1-16.7 02/08/2008 22:4 5 EDT 02/08/2008 22:58 EDT Default Emergency MD CHEMISTRY & BLOOD GAS ORDER LYNDSEY Final Result Performing Organization Address [facility] de Phone Number [facility] [address] [place] [address] * GLUCOSE, SERUM (02/08/2008 22:45 EDT) Glucose, Serum 87 70 - 100 mg/dl [facility] 02/08/2008 22:4 5 EDT 02/08/2008 22:58 EDT Default Emergency MD CHEMISTRY & BLOOD GAS ORDER LYNDSEY Final Result Performing Organization Address [facility] de Phone Number [facility] [address] [place] [address] * (ABNORMAL) BUN (02/08/2008 22:45 EDT) BUN 6(L) 8 - 21 mg/dl [facility] 02/08/2008 22:4 5 EDT 02/08/2008 22:58 EDT Default Emergency MD CHEMISTRY & BLOOD GAS ORDER LYNDSEY Final Result Performing Organization Address [facility] Phone Number [facility] [address] [place] [address] * (ABNORMAL) ELECTROLYTES (02/08/2008 22:45 EDT) Sodium 117(LL) 136 - 145 mEq/L [facility] Comment:Sample retested, res ult confirmed Potassium 3.8 3.5 - 5.0 mEq/L [facility] Chloride 81(L) 96 - 110 mEq/L [facility] CO2 25 24 - 32 mEq/L [facility] 02/08/2008 22:4 5 EDT 02/08/2008 22:58 EDT us Default Emergency MD CHEMISTRY & BLOOD GAS ORDER LYNDSEY Final Result Performing Organization Address [facility]/ZIP Co de Phone Number [facility] [address] [place] [address] * (ABNORMAL) CREATININE (02/08/2008 22:45 EDT) Pathologist [facility] Creatinine 0.40(L) 0.6 - 1.2 mg/dl [facility] GFR, Calculated Age <18 ml/min/1.7 3m2 [facility] 02/08/2008 22:4 5 EDT 02/08/2008 22:58 EDT us Default Emergency MD CHEMISTRY & BLOOD GAS ORDER LYNDSEY Final Result Performing Organization Address [facility] Co de Phone Number [facility] [address] [place] [address] * PHENYTOIN (02/08/2008 22:45 EDT) Pathologist [facility] Phenytoin 12.9 ug/ml [facility] Calculated Phenytoin 13.4 ug/ml [facility] Comment: Calculated phenytoin is adjusted for albumin level. 02/08/2008 22:4 5 EDT 02/08/2008 22:58 EDT us Default Emergency MD CHEMISTRY & BLOOD GAS ORDER LYNDSEY Final Result Performing Organization Address [facility] Co de Phone Number [facility] [address] [place] [address] * (ABNORMAL) HEMAGRAM AND DIFFERENTIAL (02/08/2008 22:45 EDT) Pathologist [facility] WBC 3.05(L) 4.6 - 11.2 K/cmm [facility] RBC 4.92 4.50 - 5.30 M/cmm [facility] Hemoglobin 12.8(L) 13.0 - 16.0 gm/dl [facility] HCT 36.9(L) 37.0 - 49.0 % [facility] MCV 75(L) 78 - 98 fl [facility] MCH 26.0 pg [facility] MCHC 34.7 gm/dl [facility] PLT 129(L) 156 - 312 K/cmm [facility] RDW-CV 15.6 % [facility] Neutrophils 62.8 % [facility] Lymphocytes 27.5 % [facility] Monocytes 8.7 % [facility] Eosinophils 0.7 % [facility] Basophils 0.3 % [facility] ABS Neutrophils 1.91 K/cmm [facility] ABS Lymphs 0.84 K/cmm [facility] ABS Monocytes 0.27 K/cmm [facility] Eosinophils 0.02 K/cmm [facility] Basophils 0.01 K/cmm [facility] Type of Diff: Automated [facility] 02/08/2008 22:4 5 EDT 02/08/2008 22:58 EDT Default Emergency PACKAGES & DNA PROBE ORDERA BLES Final Result Performing Organization Address [facility] Co de Phone Number [facility] [address] [place] [address] * (ABNORMAL) GLUCOSE, PLASMA (02/08/2008 17:12 EDT) Glucose, Plasma 64(L) 70 - 100 mg/dl [facility] 02/08/2008 17:1 2 EDT 02/08/2008 17:14 EDT Rui Bazan MD CHEMISTRY & BLOOD GAS ORDERABL ES Final Result Performing Organization Address [facility] de Phone Number [facility] [address] [place] [address] * (ABNORMAL) CREATININE (02/08/2008 17:12 EDT) Creatinine 0.57(L) 0.6 - 1.2 mg/dl [facility] GFR, Calculated Age <18 ml/min/1.7 3m2 [facility] 02/08/2008 17:1 2 EDT 02/08/2008 17:14 EDT us Edward S Florence MD CHEMISTRY & BLOOD GAS ORDERABL ES Final Result Performing Organization Address [facility] Co de Phone Number [facility] [address] [place] [address] * PHENYTOIN (02/08/2008 17:12 EDT) Pathologist [facility] Phenytoin 11.3 ug/ml [facility] Calculated Phenytoin 9.9 ug/ml [facility] Comment: Calculated phenytoin is adjusted for albumin level. 02/08/2008 17:1 2 EDT 02/08/2008 17:14 EDT Rui Bazan MD CHEMISTRY & BLOOD GAS ORDERABL ES Final Result Performing Organization Address [facility] de Phone Number [facility] [address] [place] [address] * (ABNORMAL) LIVER FUNCTION TESTS (02/08/2008 17:12 EDT) Pathologist [facility] Albumin 5.2 3.0 - 5.5 g/dl [facility] Total Protein 8.1 6.3 - 8.6 g/dl [facility] Alkaline Phosphatase 135 65 - 260 U/L [facility] ALT 30 0 - 45 U/L [facility] AST 48(H) 15 - 46 U/L [facility] Unconjugated Bilirubin 0.5 0.1 - 1.1 mg/dl [facility] Conjugated Bilirubin 0.0 0.0 - 0.3 mg/dl [facility] Bilirubin, Total <0.5 0.0 - 1.4 mg/dl [facility] 02/08/2008 17:1 2 EDT 02/08/2008 17:14 EDT Rui Bazan MD CHEMISTRY & BLOOD GAS ORDERABL ES Final Result Performing Organization Address [facility] Co de Phone Number [facility] [address] [place] [address] * (ABNORMAL) ELECTROLYTES (02/08/2008 17:12 EDT) Pathologist [facility] Sodium 118(LL) 136 - 145 mEq/L [facility] Comment:Sample retested, res ult confirmed Potassium 4.6 3.5 - 5.0 mEq/L [facility] Chloride 78(L) 96 - 110 mEq/L [facility] CO2 28 24 - 32 mEq/L [facility] 02/08/2008 17:1 2 EDT 02/08/2008 17:14 EDT Rui Bazan MD CHEMISTRY & BLOOD GAS ORDERABL ES Final Result Performing Organization Address [facility] Co de Phone Number [facility] [address] [place] [address] * (ABNORMAL) HEMAGRAM (02/08/2008 17:12 EDT) Pathologist [facility] WBC 3.51(L) 4.6 - 11.2 K/cmm [facility] RBC 5.40(H) 4.50 - 5.30 M/cmm [facility] Hemoglobin 14.0 13.0 - 16.0 gm/dl [facility] HCT 41.2 37.0 - 49.0 % [facility] MCV 76(L) 78 - 98 fl [facility] MCH 25.9 pg [facility] MCHC 34.0 gm/dl [facility] PLT 158 156 - 312 K/cmm [facility] RDW-CV 15.8 % [facility] 02/08/2008 17:1 2 EDT 02/08/2008 17:14 EDT Rui Bazan MD HEMATOLOGY & PF4 ORDERABLES Fi nal Result Performing Organization Address [facility] Co de Phone Number [facility] [address] [place] [address] * MR HEAD W/WO CONTRAST (11/29/2007 22:06 [...] identified. [place] Enriquez MD MSc IMG MRI ORDERABLES Final Result documented in this encounter Visit Diagnoses Not on filedocumented in this encounter
--- OUTSIDE RECORDS SUMMARY | 2024-06-28 13:56 | XMS_ITS | Encounter Summary ---
Author Organization [facility] Address [address] [place] [address] Care Team Providers Care Food Crops Farm Hand Name Role Phone Corin Skinner MD Primary Care Provider [phone] Encounter Details Date Type Department Care Team (Late st Contact Info) Description 05/15/2007 Before PRISM Converted Visit ([place]) [facility] - [place] conversion [address] [place] [address] Marvin Perez MD [address] [place] [phone] Social History Tobacco Use Types Packs/Day Years Used Date Smoking Tobacco: Never Assessed Sex and Gender Information Value Date Recorded Sex Assigned at Not on file Legal Sex Male 18:35 EST Gender Identity Not on file Sexual Orientation Not on file documented as of this encounter Progress Notes * Marvin Perez - 05/17/2009 1400 EST DIVISION OF NEUROSURGERY PROGRESS/FOLLOWUP NOTE - 05/15/2007 Kris Drew MD [address] [place] [phone] Drew: Miguel Angel Burgos was [...] - Marvin Perez MD - Job ID: [id number] Doc ID: [id number] cc: Kris Drew MD - Job ID: [id number] Doc ID: [id number] cc: Kris Drew MD documented in this encounter Plan of Treatment Upcoming Encounters Date Type Department Care Team (Late st Contact Info) Description 07/06/2024 13:40 EST Office Visit [facility] Endocrinology [address] [address] Wilder Zaidi, [address] [place] [phone] 09/09/2024 10:20 EST Office Visit [address] [address] Day Littlejohn MD PhD [address] [place] [phone] documented as of this encounter Visit Diagnoses Not on filedocumented in this encounter Care Teams Food Crops Farm Hand Relationship Specialty Start Date End Date Corin Skinner MD [address] [place] [phone] PCP - General 10/24/08 08/21/09 documented as of this encounter
--- OUTSIDE RECORDS SUMMARY | 2024-06-28 13:56 | XMS_ITS | Encounter Summary ---
Author Organization [facility] Address [address] [place] [address] Care Team Providers Care Research Center Partner Name Role Phone Yan Demarco MD Primary Care Provider Corin Skinner MD Primary Care Provider [phone] Encounter Details Date Type Department Care Team (Late st Contact Info) Description 11/27/2007 Office Visit [facility] - [place] conversion [address] [place] [address] Neo Benitez MD [address] [place] [phone] Social History Tobacco Use Types Packs/Day [...] Neo Benitez MD 11/28/2007 23:17) Addenda for MIGUEL ANGEL BURGOS JR VisitID: [id number] Date: 11/27/2007 11/27/2007 15:41 MARGUERITE ONTIVEROS FROM [...] at 0800 and 1600, colace 1-200mg bid, dlpycmgyivqs25 mg every 8 hours, niacin 75mg tid, temazepan 30 mg at 1600 daily - last doses given not available on transfer paperwork). --1809 Dinorah Boyd R.N.. History Chief Complaint: (altered mental status). This started today. Roberson-Carter pain scale: 2/10. Treatment MANAGER COMPLIANCE: (see transfer paperwork). SOCIAL HX: Nonsmoker. No alcohol use. 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 pt. has around the clock care. Arrived by EMS. Historian: EMS (transportation lead). --1809 Dinorah Boyd R.N.. PHYSICAL ASSESSMENT Alert. [...] 52 mg/dL; performed by nurse. --1832 Emerald Overton R.N. (Attempted to draw blood unsuccessfully. Phlebotomy [...] Previti, E.M.T. (Pt resting quietly.). --2236 Jennifer Booth, E.M.T. BP: 98 / 54. HR: 106. RR: 10. O2 saturation: 99% room air. school lunch monitor, pulse oximeter and NIBPmonitor placed on patient; monitor alarms on. (pt. parents report pt. with brief episode ofhe was gone states pt. eyes rolled back in his head and it was like he wasn't there deny any kind of motor movement or eye movement - this not witnessed by this fiction and nonfiction prose writer; pt. is upon assessment at what [...] 80 mg/dL; performed by tech. --2347 Lc Castro, E.M.T. [facility] ([facility]botomy). --0013 Dinorah Boyd R.N. HR: [...] mL/hr infusing via IV pump. --012 Brittny AguilarMTrenaTTrena. DISPOSITION / DISCHARGE Report was given (liyah on m6). --2358 Dinorah Boyd R.N. Report was given (Jc on B5). --011 Brittny AguilarMAnnabel Departure time: 314. --035 Chela Escalante R.N.. Clara Montiel R.N., R.N., R.N. Lisa Previti [facility].Trena Castro [facility].Trena Escalante R.N. Locked/Released at 11/28/2007 3:51 by Chela Escalante R.N. documented in this encounter Plan of Treatment Upcoming Encounters Date Type Department Care Team (Late st Contact Info) Description 07/06/2024 13:40 EST Office Visit [facility] Endocrinology [address] [address] Wilder Zaidi, [address] [place] [phone] 09/09/2024 10:20 EST Office Visit [facility] Endocrinology [address] [address] Day Littlejohn MD PhD [address] [place] [phone] documented as of this encounter Visit Diagnoses Not on filedocumented in this encounter Care Teams Research Center Partner Relationship Specialty Start Date End Date Yan Demarco MD [address] [place] [phone] PCP - General 08/22/09 02/20/10 Corin Skinner MD [address] [place] [phone] PCP - General 10/24/08 08/21/09 documented as of this encounter
--- OUTSIDE RECORDS SUMMARY | 2024-06-28 13:56 | XMS_ITS | Encounter Summary ---
Author Organization [facility] Address [address] [place] [address] Care Team Providers Care Shredding Machine Knife Changer Name Role Phone Unavailable Primary Care Provider Unavailabl e Encounter Details Date Type Department Care Team (Latest Contact Info) Description 05/15/2007 6:45 EST - 05/15/2007 11:59 EST Hospital Encounter [facility] Perioperative Services- [facility] [address] [place], [place] [phone] Marvin Perez MD [address] [place] [phone] Discharge Disposition: Home or Self Care Social [...] Office Visit [facility] Endocrinology - [facility] [address] [place] [address] Wilder Zaidi, 62 [facility] [address] [place] [phone] 09/09/2024 10:20 EST Office Visit [facility] Endocrinology - [facility] [address] [place], [place] [phone] Day Littlejohn MD PhD [address] [facility] [address] [place] [phone] documented as of this encounter [...] interpretation and agree with the findings. us Marvin Perez MD IMG MRI ORDERABLES Final Res ult documented in this encounter Visit Diagnoses Not on filedocumented in this encounter
--- OUTSIDE RECORDS SUMMARY | 2024-06-28 13:56 | XMS_ITS | Encounter Summary ---
Author Organization [facility] Address [address] [place] [address] Care Team Providers Care Ship Ceiler Name Role Phone Corin Skinner MD Primary Care Provider [phone] Encounter Details Date Type Department Care Team (Late st Contact Info) Description 02/06/2006 Before PRISM Converted Visit ([place]) [facility] - [place] conversion [address] [place] [address] Skyler Edwards [facility] [address] [place] [phone] Social History Tobacco Use Types Packs/Day Years [...] 02/06/2006 February 06, 2006 Kris Drew MD [address] [place] [phone] 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 Members of his nursing team, his manager progressive care, and his father accompanied him to the [...] take Miguel Angel homewith him to the [place] area. Father lives with his new and several other children. He is in the process of preparing his home for Miguel Angel's return which will likely occur in the next month. Miguel Angel currently remains at the [facility]. Based on review of notes [...] testing when he moves back to the [place] area. His caregivers had questions regarding the [...] Signed by Skyler Edwards MD 02/23/2006 22:09 Lincoln Edwards [facility] Pediatric [id number] James Zimakas, MD Skyler Edwards MD Division of Pediatric Endocrinology [phone] - Skyler Edwards MD A - O2 Job ID: [id number] Document ID: [id number] cc: MD Kris Mccauley MD *Solitario Ramos MD, [facility], [address] [place] [address]* documented in this encounter Plan of Treatment Upcoming Encounters Date Type Department Care Team (Late st Contact Info) Description 07/06/2024 13:40 EST Office Visit [facility] Endocrinology - [address] [address] Wilder Zaidi, [address] [place] [phone] 09/09/2024 10:20 EST Office Visit [facility] [place] [address] [address] Day Littlejohn MD PhD [address] [place] [phone] documented as of this encounter Visit Diagnoses Not on filedocumented in this encounter Care Teams Ship Ceiler Relationship Specialty Start Date End Date Corin Skinner MD [address] [place] [phone] PCP - General 10/24/08 08/21/09 documented as of this encounter
--- OUTSIDE RECORDS SUMMARY | 2024-06-28 13:56 | XMS_ITS | Encounter Summary ---
Author Organization [facility] Address [address] [place] [address] Care Team Providers Care Conservation Coordinator Name Role Phone Unavailable Primary Care Provider Unavailabl e Encounter Details Date Type Department Care Team (Late st Contact Info) Description 08/13/2005 9:56 EST - 08/13/2005 11:59 EST Hospital Encounter [facility] Perioperative Services- [facility] [address] [place], [place] [address] Hilton Álvarez MD [address] [place] [phone] Discharge Disposition: Home or Self Care Social [...] Visit [facility] Endocrinology - [facility] [address] [place], [place] [phone] Wilder Zaidi, [address] [facility] [address] [place] [phone] 09/09/2024 10:20 EST Office Visit [facility] Endocrinology - [facility] [address] [place] [phone] Day Littlejohn MD PhD [address] [facility] [address] [place] [address] documented as of this encounter [...] TSH 0.03(L) 0.50 - 5.00 uIU/ml [facility] 08/13/2005 17:0 3 EST 08/13/2005 17:30 EST Skyler Edwards [facility] CHEMISTRY & BL OOD GAS ORDERABLES Final Result Performing Organization Address City/State/[facility] Co de Phone Number [facility] [address] [place] [address] * (ABNORMAL) INSULIN LIKE GROWTH FACTOR I (IGF-1) (08/13/2005 17:03 EST) Insulin-Like GF-1 54Unit: ng/mL(Note) -- EXPECTED VALUES -- ? (Ref Range) 237 to 996 ? Test Performed by: ? [facility] Dpt of Lab Med and Pathology ? [address] [facility], [place] [address] ? Off Premise Service Representative: Hamzah Mcghee M.D. ?(L) [facility] 08/13/2005 17:0 3 EST 08/13/2005 17:30 EST us Skyler Edwards MDCM CHEMISTRY & BL OOD GAS ORDERABLES Final Result [facility] [address] [place] [address] * (ABNORMAL) INSULIN-LIKE GROWTH FACTOR BINDING PROTEIN 3 (IGFBP-3), SERUM (08/13/2005 17:03 EST) IGFBP-3 2.6Unit: ug/mL(Note) -- EXPECTED VALUES -- ? (Ref Range) 3.5 to 10 ? Devonte Stages ??Males ?I ? 1.2-6.4 ? II ? 2.8-6.9 ? III ?3.9-9.4 ? IV ? 3.3-8.1 ?V ? 2.7-9.1 ? Test Performed by: ? [facility] Dpt of Lab Med and Pathology ? [address], [place] [address] ? Off Premise Service Representative: Hamzah Mcghee M.D. ?(L) [facility] 08/13/2005 17:0 3 EST 08/13/2005 17:30 EST Skyler Edwards [facility] CHEMISTRY & BL OOD GAS ORDERABLES Final Result Performing Organization Address [facility] de Phone Number [facility] [address] [place] [address] * T4 FREE (08/13/2005 17:03 EST) Free T4 1.4 0.8 - 1.8 ng/dl [facility] 08/13/2005 17:0 3 EST 08/13/2005 17:30 EST Skyler Edwards [facility] CHEMISTRY & BL OOD GAS ORDERABLES Final Result Performing Organization Address [facility] de Phone Number [facility] [address] [place] [address] * (ABNORMAL) COMPREHENSIVE METABOLIC PANEL (08/13/2005 17:03 EST) Potassium 3.8 3.6 - 5.2 mEq/L [facility] Sodium 134(L) 136 - 145 mEq/L [facility] Chloride 98 96 - 110 mEq/L [facility] CO2 27 24 - 32 mEq/L [facility] Total Alkaline Phosphatase 179 130 - 525 U/L [facility] Bilirubin, Total <0.5 0.0 [...] Glucose, Serum 82 70 - 110 mg/dl [facility] Fasting? No [facility] Albumin/Globulin Ratio 1.6 [facility] 08/13/2005 17:0 3 EST 08/13/2005 17:30 EST Skyler Edwards MDCM CHEMISTRY & BL OOD GAS ORDERABLES Final Result Performing Organization Address City/State/[facility] Co de Phone Number [facility] [address] [place] [address] documented in this encounter Visit Diagnoses Not on filedocumented in this encounter
--- OUTSIDE RECORDS SUMMARY | 2024-06-28 13:56 | XMS_ITS | Encounter Summary ---
Author Organization [facility] Address [address] [place] [address] Care Team Providers Care Americanization Teacher Name Role Phone Yan Demarco MD Primary Care Provider Corin Skinner MD Primary Care Provider Akil Serrano MD Primary Care Provider [phone] Encounter Details Date Type Department Care Team (Late st Contact Info) Description 08/19/2007 Results Only [facility] - [facility] [address] [place], [place] [phone] [facility] [address] [place] [phone] Social History Tobacco Use Types Packs/Day Years [...] Office Visit [facility] Endocrinology - [facility] [address] [place] [address] Wilder Zaidi, DO [address] [facility] [address] [place] [address] 09/09/2024 10:20 EST Office Visit [facility] Endocrinology - [facility] [address] [place] [address] Day Littlejohn MD PhD [address] [facility] [address] [place] [address] documented as of this encounter [...] 5 EST 08/19/2007 11:20 EST Skyler Edwards [facility] CHEMISTRY & BL OOD GAS ORDERABLES Final Result Performing Organization Address City/[facility] Co de Phone Number [facility] [address] [place] [address] * LH (08/19/2007 11:15 EST) LH <0.1 mIU/ml [facility] 08/19/2007 11:1 5 EST 08/19/2007 11:20 EST Skyler Edwards [facility] CHEMISTRY & BL OOD GAS ORDERABLES Final Result Performing Organization Address City/[facility]/ZIP Co de Phone Number [facility] [address] [place] [address] * T4 FREE (08/19/2007 11:15 EST) Free T4 0.8 0.8 - 1.5 ng/dL [facility] 08/19/2007 11:1 5 EST 08/19/2007 11:20 EST Skyler Edwards [facility] CHEMISTRY & BL OOD GAS ORDERABLES Final Result Performing Organization Address [facility] de Phone Number [facility] [address] [place] [address] * FSH (08/19/2007 11:15 EST) [facility] FSH <0.3 mIU/ml [facility] 08/19/2007 11:1 5 EST 08/19/2007 11:20 EST Skyler Edwards [facility] CHEMISTRY & BL OOD GAS ORDERABLES Final Result Performing Organization Address [facility] Phone Number [facility] [address] [place] [address] * (ABNORMAL) COMPREHENSIVE METABOLIC PANEL (08/19/2007 11:15 EST) [facility] Potassium 3.7 3.5 - 5.0 mEq/L [facility] Sodium 118(LL) 136 - 145 mEq/L [facility] Comment:Sample retested, res ult confirmed Chloride 81(L) 96 - 110 mEq/L [facility] CO2 26 24 - 32 mEq/L [facility] Total Alkaline Phosphatase 150 65 - 260 U/L [facility] Bilirubin, Total 0.5 0.0 - 1.4 mg/dl [facility] AST 33 15 - 46 U/L [facility] ALT 40 0 - 45 U/L [facility] Albumin 4.9 3.0 - 5.5 g/dl [facility] Total Protein 7.9 6.3 - 8.6 g/dl [facility] Creatinine 0.67 0.6 - 1.2 mg/dl [facility] GFR, Calculated Age <18 ml/min/1.7 3m2 [facility] BUN 6(L) 8 - 21 mg/dl [facility] Calcium 9.0 8.5 - 10.5 mg/dl [facility] Calculated Calcium 8.5 8.5 - 10.5 mg/dl [facility] Glucose, Serum 81 70 - 100 mg/dl [facility] Fasting? No [facility] 08/19/2007 11:1 5 EST 08/19/2007 11:20 EST Skyler Edwadrs MDCM CHEMISTRY & BL OOD GAS ORDERABLES Final Result [facility] [address] [place] [address] documented in this encounter Visit Diagnoses Not on filedocumented in this encounter Care Teams Americanization Teacher Relationship Specialty Start Date End Date Yan Demarco MD [address] [place] [phone] PCP - General 08/22/09 02/20/10 Corin Skinner MD [address] [place] [phone] PCP - General 10/24/08 08/21/09 Akil Serrano MD 74 [facility] [address] [place] [address] PCP - General 02/21/10 04/16/11 documented as of this encounter
--- OUTSIDE RECORDS SUMMARY | 2024-06-28 13:56 | XMS_ITS | Encounter Summary ---
Author Organization [facility] Address [address] [place] [address] Care Team Providers Care Weatherization Operations Manager Name Role Phone Unavailable Primary Care Provider Unavailabl e Encounter Details Date Type Department Care Team (Late st Contact Info) Description 08/13/2006 12:57 EST Hospital Encounter [facility] [address] [place] [address] [facility] [address] [place] [phone] Social History Tobacco Use Types Packs/Day Years [...] Visit [facility] Endocrinology - [facility] [address] [facility] [place] [address] Wilder Zaidi, DO 62 [facility] [address] [place] [address] 09/09/2024 10:20 EST Office Visit [facility] Endocrinology - [facility] [address] [place] [address] Day Littlejohn MD PhD [address] [phone] documented as of this encounter Visit Diagnoses Not on filedocumented in this encounter
--- OUTSIDE RECORDS SUMMARY | 2024-06-28 13:57 | XMS_ITS | Encounter Summary ---
Author Organization [facility] Address [address] [place] [address] Care Team Providers Care Extension Service Specialist In Charge Name Role Phone Yan Demarco MD Primary Care Provider Corin Skinner MD Primary Care Provider Akil Serrano MD Primary Care Provider [phone] Encounter Details Date Type Department Care Team (Late st Contact Info) Description 11/30/2004 Before PRISM Converted Visit (Maple) [facility] - Maple conversion [address] [place], [place] [address] Raleigh Angelo MD [address] [phone] Social History Tobacco Use Types Packs/Day Years [...] - RALEIGH ANGELO MD /ss Voice ID: [id number] Doc ID: [id number] phaD: 11/30/2004 - RALEIGH ANGELO MD /ss Voice ID: [id number] Doc ID: [id number] documented in this encounter Plan of Treatment Upcoming Encounters Date Type Department Care Team (Late st Contact Info) Description 07/06/2024 13:40 EST Office Visit [facility] Endocrinology - [address] [phone] Wilder Zaidi, DO [address] [place] [phone] 09/09/2024 10:20 EST Office Visit [address] [phone] Day Littlejohn MD PhD [address] [place] [phone] documented as of this encounter Visit Diagnoses Not on filedocumented in this encounter Care Teams Extension Service Specialist In Charge Relationship Specialty Start Date End Date Yan Demarco MD [address] [place] [address] PCP - General 08/22/09 02/20/10 Corin Skinner MD [address] [place] [phone] PCP - General 10/24/08 08/21/09 Akil Serrano MD 74 [facility] [place],[address] [address] PCP - General 02/21/10 04/16/11 documented as of this encounter
--- OUTSIDE RECORDS SUMMARY | 2024-06-28 13:57 | XMS_ITS | Encounter Summary ---
Author Organization [facility] Address [address] [place] [address] Care Team Providers Care Hazardous Waste Management Specialist Name Role Phone Yan Demarco MD Primary Care Provider Corin Skinner MD Primary Care Provider [phone] Akil Serrano MD Primary Care Provider [phone] Encounter Details Date Type Department Care Team (Late st Contact Info) Description 11/29/2004 Before PRISM Converted Visit (Maple) [facility] - Maple conversion [address] [place] [address] Allison Alarcon MD [address] [place] [phone] Social History Tobacco Use Types Packs/Day Years [...] subacute rehab facility which is December, at [facility] in [place].Social work has identified there are still a [...] - ALLISON ALARCON MD / Voice ID: [id number] Doc ID: [id number] - ALLISON ALARCON MD /mh Voice ID: [id number] Doc ID: [id number] documented in this encounter Plan of Treatment Upcoming Encounters Date Type Department Care Team (Late st Contact Info) Description 07/06/2024 13:40 EST Office Visit [facility] Endocrinology - [facility] [address] [place] [address] Wilder Zaidi, DO 62 [facility] [address] [place] [phone] 09/09/2024 10:20 EST Office Visit [facility] Endocrinology - [address] [address] Day Littlejohn MD PhD [address] [place] [phone] documented as of this encounter Visit Diagnoses Not on filedocumented in this encounter Care Teams Hazardous Waste Management Specialist Relationship Specialty Start Date End Date Yan Demarco MD [address] [place] [phone] PCP - General 08/22/09 02/20/10 Corin Skinner MD [address] [place] [phone] PCP - General 10/24/08 08/21/09 Akil Serrano MD [address] [phone] PCP - General 02/21/10 04/16/11 documented as of this encounter
--- OUTSIDE RECORDS SUMMARY | 2024-06-28 13:57 | XMS_ITS | Encounter Summary ---
Author Organization [facility] Address [address] [place] [address] Care Team Providers Care Customer Marketing Manager Name Role Phone Yan Demarco MD Primary Care Provider Corin Skinner MD Primary Care Provider Akil Serrano MD Primary Care Provider [phone] Encounter Details Date Type Department Care Team (Late st Contact Info) Description 11/26/2004 Before PRISM Converted Visit (Maple) [facility] - Maple conversion [address] [place], [place] [address] Raleigh Angelo MD [address] [phone] Social History Tobacco Use Types Packs/Day Years [...] - RALEIGH ANGELO MD /mt Voice ID: [id number] Doc ID: [id number] spalpha - RALEIGH ANGELO MD /mt Voice ID: [id number] Doc ID: [id number] documented in this encounter Plan of Treatment Upcoming Encounters Date Type Department Care Team (Late st Contact Info) Description 07/06/2024 13:40 EST Office Visit [facility] Endocrinology - [address] [phone] Wilder Zaidi, DO [address] [place] [phone] 09/09/2024 10:20 EST Office Visit [facility] Endocrinology - [address] [phone] Day Littlejohn MD PhD [address] [place] [phone] documented as of this encounter Visit Diagnoses Not on filedocumented in this encounter Care Teams Customer Marketing Manager Relationship Specialty Start Date End Date Yan Demarco MD [address] [place] [address] PCP - General 08/22/09 02/20/10 Corin Skinner MD [address] [phone] PCP - General 10/24/08 08/21/09 Akil Serrano MD 74 [facility] 100 [place], [place] [address] PCP - General 02/21/10 04/16/11 documented as of this encounter
--- OUTSIDE RECORDS SUMMARY | 2024-06-28 13:57 | XMS_ITS | Encounter Summary ---
Author Organization [facility] Address [address] [place] [address] Care Team Providers Care Water Engineer Name Role Phone Yan Demarco MD Primary Care Provider [phone] Corin Skinner MD Primary Care Provider [phone] Akil Serrano MD Primary Care Provider [phone] Encounter Details Date Type Department Care Team (Late st Contact Info) Description 11/22/2004 Before PRISM Converted Visit (Maple) [facility] - Maple conversion [address] [place] [address] Kylie Larson MD [address] [place] [address] [address] [place], [place] [address] Social History Tobacco Use Types Packs/Day Years [...] - KYLIE LARSON MD /re Voice ID: [id number] Doc ID: [id number] [facility]. No other medication changes will be made today. He will continue comprehensive therapy services for neurorehabilitation. - KYLIE LARSON MD re Voice ID: [id number] Doc ID: [id number] documented in this encounter Plan of Treatment Upcoming Encounters Date Type Department Care Team (Late st Contact Info) Description 07/06/2024 13:40 EST Office Visit [facility] Endocrinology [address] [address] Wilder Zaidi, [address] [place] [address] [address] [place] [address] 09/09/2024 10:20 EST Office Visit [facility] Endocrinology - [place] [address] [place], [place] [phone] Day Littlejohn MD PhD 62 [facility] [address] [place] [address] documented as of this encounter Visit Diagnoses Not on filedocumented in this encounter Care Teams Water Engineer Relationship Specialty Start Date End Date Yan Demarco MD [address] [place] [address] PCP - General 08/22/09 02/20/10 Corin Skinner MD [address] [place] [phone] PCP - General 10/24/08 08/21/09 Akil Serrano MD [address] [facility] [place] [address] PCP - General 02/21/10 04/16/11 documented as of this encounter
--- OUTSIDE RECORDS SUMMARY | 2024-06-28 13:57 | XMS_ITS | Encounter Summary ---
Author Organization [facility] Address [address] [place] [address] Care Team Providers Care Warehouse Clerk Name Role Phone Yan Demarco MD Primary Care Provider [phone] Corin Skinner MD Primary Care Provider [phone] Akil Serrano MD Primary Care Provider [phone] Yossi Torres MD Primary Care Provider [phone] Emilee Cody MD Primary Care Provider + Ren Vaz MD Primary Care Provider [phone] Encounter Details Date Type Department Care Team (Late st Contact Info) Description 03/27/2005 Before PRISM Converted Visit (Maple) [facility] Pediatric Neurology [facility] [address] [place], [place] [address] Hilton Álvarez MD [address] [place] [phone] Social History Tobacco Use Types Packs/Day [...] EST Office Visit [facility] Endocrinology - [address] [address] Wilder Zaidi, DO 62 [facility] [address] [place] [address] 09/09/2024 10:20 EST Office Visit [facility] Endocrinology - [facility] [address] [place] [address] Day Littlejohn MD PhD 62 [facility] [address] [place] [address] documented as of this [...] ??This most likely represents some residual tumor. /nell [...] This most likely represents some residual tumor. /tns I have personally reviewed the images and the above interpretation and agree with the findings. us Hilton Álvarez MD IMG MRI ORDERABLES Final R esult documented in this encounter Visit Diagnoses Not on filedocumented in this encounter Care Teams Warehouse Clerk Relationship Specialty Start Date End Date Yan Demarco MD [address] [place] [address] PCP - General 08/22/09 02/20/10 Corin Skinner MD [address] [place] [phone] PCP - General 10/24/08 08/21/09 Akil Serrano MD [address] [place] [address] [address] [place] [address] PCP - General 02/21/10 04/16/11 Yossi Torres MD [address] [place] [phone] PCP - General 04/17/11 03/14/16 Emilee Cody MD [address] [place] [phone] PCP - General 03/15/16 09/29/18 Ren Vaz MD [facility] [place] [address] PCP - General 09/30/18 documented as of this encounter
--- OUTSIDE RECORDS SUMMARY | 2024-06-28 13:57 | XMS_ITS | Encounter Summary ---
Author Organization [facility] Address [address] [place] [address] Care Team Providers Care Quality Compliance Consultant Name Role Phone Unavailable Primary Care Provider Unavailabl e Encounter Details Date Type Department Care Team (Latest Contact Info) Description 11/20/2004 12:11 EDT - 12/31/2004 11:59 EDT Hospital Encounter [facility] Rehabilitation Therapy Unit Level 2 [address] [place] [address] Allison Alarcon MD [address] [place] [phone] [facility] Social History [...] triglyceride was repeated and continued to be [id number]. The patient was seen further in evaluation [...] Alarcon MD A - LR Job ID: [id number] Document ID: [id number] cc: MD Kris Mccauley MD Christa M Zehle, MD Paul James Zimakas, MD [address] \* MERGEFORMAT Acosta Enriquez MD A - ck Job ID: [id number] Document ID: [id number] cc: MD Acosta Oakley MD Carol L Thayer, [place] [id number] \* MERGEFORMAT Krissy Chamberlain MD D: - Krissy Chamberlain MD P - mo Job ID: Document ID: [id number] cc: Marvin Hernandez MD Adrian [facility], [email or web address] documented in this encounter Discharge Disposition Disposition [...] Signed by Allison Alarcon MD 01/02/2005 14:01 Armand Alarcon, Sky Alarcon MD Allison Alarcon MD - Allison Alarcon MD A - mt Job ID: [id number] Document ID: [id number] cc: 29 [id number] * Allison Alarcon MD - 12/30/2004 0000 [...] Signed by Allison Alarcon MD 12/30/2004 21:46 Sky Hollingsworth MD Allison Alarcon MD - Allison Alarcon MD P - lr Job ID: [id number] Document ID: [id number] cc: * Allison Alarcon [...] Alarcon MD P - re Job ID: [id number] Document ID: [id number] cc: * Wicho Carlton [...] Continue to monitor clinically. I await Dr. Virgen followup. Signed by Wicho Carlton MD 12/28/2004 15:40 Nadine Garcia MD Wicho Carlton MD - Wicho Carlton MD P - lr Job ID: [id number] Document ID: [id number] cc: * Allison Alarcon [...] Alarcon MD A - mt Job ID: [id number] Document ID: [id number] cc: [email or web address] * Allison Alarcon MD - 12/26/2004 0000 EDT INPATIENT PROGRESS NOTE PT LOC: F002 Service Date: 12/26/2004 DIAGNOSIS: Status post CVAs, status post craniopharyngioma resection. SUBJECTIVE: Patient seeming more restless this morning. 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 SUBJECTIVE: [place] team has been noting excellent gains in [...] Alarcon MD P - chelle Job ID: [id number] Document ID: [id number] cc: le * Wicho [...] Carlton MD P - re Job ID: [id number] Document ID: [id number] cc: 24 * Wicho [...] Signed by Wicho Carlton MD 12/22/2004 12:27 ARoNadine Valentine MD Wicho Carlton MD - Wicho Carlton MD A - mo Job ID: [id number] Document ID: [id number] cc: 6 * Wicho [...] Dr. Castañeda. I also discussed case with [facility] morning and OT aides. Signed by Wicho Carlton MD 12/21/2004 15:23 Nadine Garcia MD Wicho Carlton MD - Wicho Carlton MD A - mo Job ID: [id number] Document ID: [id number] cc: [email or web address] * [place] [...] Signed by [place] Castañeda MD 12/21/2004 22:08 Dena Castañeda, Pipe Castañeda MD [place] Castañeda MD - [place] Castañeda MD P - lr Job ID: [id number] Document ID: [id number] cc: * Wicho Carlton [...] have dictated a letter this morning for social security assessor to assist with placement into a subacute [...] Carlton MD P - mo Job ID: [id number] Document ID: [id number] cc: [id number] * [place] Castañeda MD - 12/20/2004 0000 [...] Castañeda MD P - mo Job ID: [id number] Document ID: [id number] cc: P, hyd * [...] Carlton MD P - ss Job ID: [id number] Document ID: [id number] cc: [id number] * [place] [...] Castañeda MD A - mt Job ID: [id number] Document ID: [id number] cc: * [place] Castañeda [...] Castañeda MD P - [place] Job ID: [id number] Document ID: [id number] cc: * Wicho Carlton MD - 12/18/2004 1361 EDT INPATIENT PROGRESS NOTE PT LOC: F002 [...] Carlton MD P - mo Job ID: [id number] Document ID: [id number] cc: g * [place] [...] Castañeda MD P - mt Job ID: [id number] Document ID: [id number] cc: inst * Wicho [...] Carlton MD P - MT Job ID: [id number] Document ID: [id number] cc: * [place] Castañeda [...] Castañeda MD P - mt Job ID: [id number] Document ID: [id number] cc: * Drew Larson [...] Larson MD P - lr Job ID: [id number] Document ID: [id number] cc: [id number] * Drew Larson MD - 12/15/2004 1939 [...] Signed by Drew Larson MD 12/17/2004 14:16 Maurice Larson, Leroy Larson MD Drew Larson MD - Drew Larson MD P - lr Job ID: [id number] Document ID: [id number] cc: [facility] CC * Allison Alarcon MD - [...] Alarcon MD A - re Job ID: [id number] Document ID: [id number] cc: *st * Allison Alarcon MD - 12/14/2004 3453 EDT INPATIENT PROGRESS NOTE PT LOC: F002 [...] Alarcon MD P - re Job ID: [id number] Document ID: [id number] cc: [id number]??? * Wicho [...] Carlton MD P - mh Job ID: [id number] Document ID: [id number] cc: kend I * [...] Castañeda MD A - re Job ID: [id number] Document ID: [id number] cc: 24 * [place] [...] Castañeda MD P - ss Job ID: [id number] Document ID: [id number] cc: * [place] Castañeda MD - 12/13/2004 1345 EDT INPATIENT PROGRESS NOTE PT LOC: F002 Service Date: 12/10/2004 Mr. Burgos is a 14-year-old recovering from [...] Castañeda MD P - ss Job ID: [id number] Document ID: [id number] cc: 2 * Allison [...] Consider increasing free water. 2. 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 Continue 1:1 with other shifts. (40 minutes total time, greater than 50% care coordination with team and discussion and education with family). Signed by Allison Alarcon MD 12/12/2004 23:51 Sky Hollingsworth MD Allison Alarcon MD - Allison Alarcon MD P - ss Job ID: [id number] Document ID: [id number] cc: t ID: * [...] Signed by [place] Castañeda MD 12/13/2004 11:18 Dena Castañeda, Pipe Castañeda MD [place] Castañeda MD - [place] Castañeda MD A - ss Job ID: [id number] Document ID: [id number] cc: 80 documented in this encounter Plan of Treatment Upcoming Encounters Date Type Department Care Team (Late st Contact Info) Description 07/06/2024 13:40 EST Office Visit [facility] Endocrinology - [address] [phone] Wilder Zaidi, [address] [place] [phone] 09/09/2024 10:20 EST Office Visit [address] [address] Day Littlejohn MD PhD [address] [place] [phone] documented as of this encounter Procedures [...] Doppler interrogation could not be performed adequately. /[facility] Narrative 03/02/2009 14:19 EDT POST [...] Doppler interrogation could not be performed adequately. /[facility] Ermelinda Lee MD [facility] US ORDERABLES Final Resul t * (ABNORMAL) SODIUM (12/02/2004 16:30 EDT) Sodium 134(L) 136 - 145 mEq/L [facility] 12/02/2004 16:3 0 EDT 12/02/2004 16:36 EDT Allison Alarcon MD CHEMISTRY & BLOOD GAS ORDERA BLES Final Result Performing Organization Address City/[facility] Co de Phone Number [facility] [address] [place] [address] * BUN (12/02/2004 16:30 EDT) BUN 17 8 - 21 mg/dl [facility] 12/02/2004 16:3 0 EDT 12/02/2004 16:36 EDT Allison Alarcon MD CHEMISTRY & BLOOD GAS ORDERA BLES Final Result Performing Organization Address [facility] de Phone Number [facility] [address] [place] [address] * CT HEAD WO CONTRAST (11/29/2004 14:39 [...] future is suggested. D 11/29/04 T 12/03/04 Procedure Note Jose Armando Barker MD - 03/02/2009 H/O CONTINUED SIG DEFICITS, [...] future is suggested. D 11/29/04 T 12/03/04 us Jodi Parr MD IMG CT ORDERABLES Final Result * SODIUM (11/29/2004 6:25 EDT) Sodium 137 136 - 145 mEq/L [facility] Comment:Performed at [facility], [place], [place] 11/29/2004 6:25 EDT 11/29/2004 6:36 EDT us Allison Alarcon MD CHEMISTRY & BLOOD GAS ORDERA BLES Final Result [facility] [address] [place] [address] * BUN (11/29/2004 6:25 EDT) BUN 18 8 - 21 mg/dl [facility] Comment:Performed at [place], [place] 11/29/2004 6:25 EDT 11/29/2004 6:36 EDT Allison Alarcon MD CHEMISTRY & BLOOD GAS ORDERA BLES Final Result Performing Organization Address [facility] de Phone Number [facility] [address] [place] [address] * C. DIFFICILE TOXIN (11/28/2004 13:30 EDT) Specimen Description Feces [facility] Result No C.difficil e toxin A or toxin B detected. [facility] Report Status Final [id number] [facility] 11/28/2004 13:3 0 EDT 11/28/2004 16:20 EDT Allison Alarcon MD MICROBIOLOGY - GENERAL ORDER LYNDSEY Final Result Performing Organization Address [facility] de Phone Number [facility] [address] [place] [address] * (ABNORMAL) SODIUM (11/28/2004 12:20 EDT) Pathologist [facility] Sodium 134(L) 136 - 145 mEq/L [facility] Comment:Performed at [place], [place] 11/28/2004 12:2 0 EDT 11/28/2004 12:41 EDT Allison Alarcon MD CHEMISTRY & BLOOD GAS ORDERA BLES Final Result Performing Organization Address [facility] de Phone Number [facility] [address] [place] [address] * BUN (11/28/2004 12:20 EDT) BUN 19 8 - 21 mg/dl [facility] Comment:Performed at [place], [place] 11/28/2004 12:2 0 EDT 11/28/2004 12:41 EDT us Allison Alarcon MD CHEMISTRY & BLOOD GAS ORDERA BLES Final Result Performing Organization Address [facility] Co de Phone Number [facility] [address] [place] [address] * SODIUM (11/27/2004 6:15 EDT) Sodium 137 136 - 145 mEq/L [facility] Comment:Performed at [facility] [place], [place] 11/27/2004 6:15 EDT 11/27/2004 6:26 EDT us Allison Alarcon MD CHEMISTRY & BLOOD GAS ORDERA BLES Final Result Performing Organization Address [facility] de Phone Number [facility] [address] [place] [address] * BUN (11/27/2004 6:15 EDT) BUN 21 8 - 21 mg/dl [facility] Comment:Performed at [facility] [place], [place] 11/27/2004 6:15 EDT 11/27/2004 6:26 EDT us Allison Alarcon MD CHEMISTRY & BLOOD GAS ORDERA BLES Final Result Performing Organization Address [facility] Co de Phone Number [facility] [address] [place] [address] * (ABNORMAL) TSH (11/26/2004 5:50 EDT) TSH 0.15(L) 0.50 - 5.00 uIU/ml [facility] 11/26/2004 5:50 EDT 11/26/2004 6:53 EDT us Allison Alarcon MD CHEMISTRY & BLOOD GAS ORDERA BLES Final Result Performing Organization Address City/[facility]/ZIP Co de Phone Number [facility] [address] [place] [address] * SODIUM (11/26/2004 5:50 EDT) Sodium 138 136 - 145 mEq/L [facility] Comment:Performed at [place], [place] 11/26/2004 5:50 EDT 11/26/2004 6:53 EDT Allison Alarcon MD CHEMISTRY & BLOOD GAS ORDERA BLES Final Result [facility] [address] [place] [address] * T4 FREE (11/26/2004 5:50 EDT) Free T4 1.2 0.8 - 1.8 ng/dl [facility] 11/26/2004 5:50 EDT 11/26/2004 6:53 EDT us Allison Alarcon MD CHEMISTRY & BLOOD GAS ORDERA BLES Final Result Performing Organization Address City/[facility]/ZIP Co de Phone Number [facility] [address] [place] [address] * BUN (11/26/2004 5:50 EDT) BUN 20 8 - 21 mg/dl [facility] Comment:Performed at [place], [place] 11/26/2004 5:50 EDT 11/26/2004 6:53 EDT us Allison Alarcon MD CHEMISTRY & BLOOD GAS ORDERA BLES Final Result Performing Organization Address City/[facility]/ZIP Co de Phone Number [facility] [address] [place] [address] * TESTS ADDED BY PHONE (11/26/2004 5:50 EDT) Tests to be added TSH,FT4 [facility] 11/26/2004 5:50 EDT 11/26/2004 6:53 EDT us Allison Alarcon MD CHEMISTRY & BLOOD GAS ORDERA BLES Final Result [facility] [address] [place] [address] * SODIUM (11/25/2004 15:00 EDT) Sodium 137 136 - 145 mEq/L [facility] 11/25/2004 15:0 0 EDT 11/25/2004 15:12 EDT us Allison Alarcon MD CHEMISTRY & BLOOD GAS ORDERA BLES Final Result Performing Organization Address [facility]/ZIP Co de Phone Number [facility] [address] [place] [address] * SODIUM (11/25/2004 6:05 EDT) Sodium 137 136 - 145 mEq/L [facility] Comment:Performed at [place], [place] 11/25/2004 6:05 EDT 11/25/2004 9:31 EDT us Allison Alarcon MD CHEMISTRY & BLOOD GAS ORDERA BLES Final Result Performing Organization Address [facility]/ZIP Co de Phone Number [facility] [address] [place] [address] * BUN (11/25/2004 6:05 EDT) BUN 21 8 - 21 mg/dl [facility] Comment:Performed at [place], [place] 11/25/2004 6:05 EDT 11/25/2004 9:31 EDT us Allison Alarcon MD CHEMISTRY & BLOOD GAS ORDERA BLES Final Result [facility] [address] [place] [address] * SODIUM (11/24/2004 6:15 EDT) Sodium 144 136 - 145 mEq/L [facility] Comment:Performed at [place], [place] 11/24/2004 6:15 EDT 11/24/2004 9:58 EDT Allison Alarcon MD CHEMISTRY & BLOOD GAS ORDERA BLES Final Result Performing Organization Address [facility] Co de Phone Number [facility] [address] [place] [address] * (ABNORMAL) BUN (11/24/2004 6:15 EDT) BUN 22(H) 8 - 21 mg/dl [facility] Comment:Performed at [place], [place] 11/24/2004 6:15 EDT 11/24/2004 9:58 EDT us Allison Alarcon MD CHEMISTRY & BLOOD GAS ORDERA BLES Final Result Performing Organization Address [facility] Co de Phone Number [facility] [address] [place] [address] * (ABNORMAL) SODIUM (11/23/2004 5:50 EDT) Sodium 146(H) 136 - 145 mEq/L [facility] Comment:Performed at [place], [place] 11/23/2004 5:50 EDT 11/23/2004 7:26 EDT us Allison Alarcon MD CHEMISTRY & BLOOD GAS ORDERA BLES Final Result Performing Organization Address [facility] Co de Phone Number [facility] [address] [place] [address] * (ABNORMAL) BUN (11/23/2004 5:50 EDT) BUN 25(H) 8 - 21 mg/dl [facility] Comment:Performed at [place], [place] 11/23/2004 5:50 EDT 11/23/2004 7:26 EDT us Allison Alarcon MD CHEMISTRY & BLOOD GAS ORDERA BLES Final Result Performing Organization Address [facility] Co de Phone Number [facility] [address] [place] [address] * (ABNORMAL) SODIUM (11/22/2004 7:00 EDT) Sodium 147(H) 136 - 145 mEq/L [facility] Comment:Performed at [place], [place] 11/22/2004 7:00 EDT 11/22/2004 7:09 EDT us Allison Alarcon MD CHEMISTRY & BLOOD GAS ORDERA BLES Final Result Performing Organization Address [facility] de Phone Number [facility] [address] [place] [address] * CREATININE (11/22/2004 7:00 EDT) Creatinine 0.8 0.6 - 1.2 mg/dl [facility] Comment:Performed at [place], [place] 11/22/2004 7:00 EDT 11/22/2004 7:09 EDT us Allison Alarcon MD HISTORICAL LAB FOR SQ LOAD F inal Result Performing Organization Address [facility] de Phone Number [facility] [address] [place] [address] * (ABNORMAL) BUN (11/22/2004 7:00 EDT) BUN 28(H) 8 - 21 mg/dl [facility] Comment:Performed at [place], [place] 11/22/2004 7:00 EDT 11/22/2004 7:09 EDT us Allison Alarcon MD CHEMISTRY & BLOOD GAS ORDERA BLES Final Result Performing Organization Address [facility] Co de Phone Number [facility] [address] [place] [address] * (ABNORMAL) ELECTROLYTES (11/21/2004 6:50 EDT) Sodium 146(H) 136 - 145 mEq/L [facility] Potassium 4.4 3.6 - 5.2 mEq/L [facility] Chloride 105 96 - 110 mEq/L [facility] CO2 33(H) 24 - 32 mEq/L [facility] Comment:Performed at [facility], [place], [place] 11/21/2004 6:50 EDT 11/21/2004 7:26 EDT Allison Alarcon MD CHEMISTRY & BLOOD GAS ORDERA BLES Final Result Performing Organization Address [facility] de Phone Number [facility] [address] [place] [address] * (ABNORMAL) HEMAGRAM (11/21/2004 6:50 EDT) WBC 5.20 4.5 - 13.0 K/cmm [facility] RBC 3.79(L) 4.50 - 5.30 M/cmm [facility] Hemoglobin 10.7(L) 13.0 - 16.0 gm/dl [facility] HCT 31.9(L) 37.0 - 49.0 % [facility] MCV 84 78 - 98 fl [facility] MCH 28.2 pg [facility] MCHC 33.6 gm/dl [facility] PLT 259 156 - 312 K/cmm [facility] RDW-CV 16.0 % [facility] 11/21/2004 6:50 EDT 11/21/2004 7:26 EDT Allison Alarcon MD HEMATOLOGY & PF4 ORDERABLES Final Result Performing Organization Address [facility] Co de Phone Number [facility] [address] [place] [address] * CREATININE (11/21/2004 6:50 EDT) Creatinine 0.8 0.6 - 1.2 mg/dl [facility] Comment:Performed at [facility] [place], [place] 11/21/2004 6:50 EDT 11/21/2004 7:26 EDT Allison Alarcon MD HISTORICAL LAB FOR SQ LOAD F inal Result Performing Organization Address [facility] Co de Phone Number [facility] [address] [place] [address] * (ABNORMAL) BUN (11/21/2004 6:50 EDT) BUN 30(H) 8 - 21 mg/dl [facility] Comment:Performed at [facility], [place], [place] 11/21/2004 6:50 EDT 11/21/2004 7:26 EDT us Allison Alarcon MD CHEMISTRY & BLOOD GAS ORDERA BLES Final Result Performing Organization Address [facility] Co de Phone Number [facility] [address] [place] [address] * SODIUM (11/21/2004 6:00 EDT) Sodium 136 - 145 mEq/L [facility] 11/21/2004 6:00 EDT 11/21/2004 6:41 EDT us Allison Alarcon MD CHEMISTRY & BLOOD GAS ORDERA BLES Final Result Performing Organization Address [facility] Co de Phone Number [facility] [address] [place] [address] documented in this encounter Visit Diagnoses Not on filedocumented in this encounter
--- OUTSIDE RECORDS SUMMARY | 2024-06-28 13:57 | XMS_ITS | Encounter Summary ---
Author Organization [facility] Address [address] [place] [address] Care Team Providers Care Exhaust And Muffler Repairer Name Role Phone Yan Demarco MD Primary Care Provider Corin Skinner MD Primary Care Provider Akil Serrano MD Primary Care Provider [phone] Encounter Details Date Type Department Care Team (Late st Contact Info) Description 11/20/2004 Before PRISM Converted Visit (Maple) [facility] - Maple conversion [address] [place] [address] Kylie Larson MD [address] [place] [address] [address] [place], [place] [address] Social History Tobacco Use Types Packs/Day Years [...] 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 He will withdraw [...] MD - 11/20/2004 14:46:57 - ss Voice ID- [id number] Document ID - [id number] cc: SUMMER CHRISTIE MD, REFERRING PHYSICIAN ANCELMO MALLOY MD, REFERRING PHYSICIAN Approved by: KYLIE LARSON MD Attending Physician This document has been electronically signed by KYLIE LARSON MD on 11/21/2004 17:25:21. y. 8. Dr. Castañeda will be consulted to monitor this complicated patient along with us. 11/20/2004 13:25:35 - KYLIE LARSON MD - 11/20/2004 14:46:57 - ss Voice ID - [id number] Document ID - [id number] cc: ADE MALLOY MD, REFERRING PHYSICIAN SUMMER CHRISTIE MD, REFERRING PHYSICIAN ANCELMO MICHAEL MD Approved by: KYLIE LARSON MD Attending Physician documented in this encounter Plan of Treatment Upcoming Encounters Date Type Department Care Team (Late st Contact Info) Description 07/06/2024 13:40 EST Office Visit [address] [address] Wilder Zaidi, [address] [place] [address] [address] [place] [phone] 09/09/2024 10:20 EST Office Visit [address] [phone] Day Littlejohn MD PhD [address] [place] [address] [address] [place] [phone] documented as of this encounter Visit Diagnoses Not on filedocumented in this encounter Care Teams Exhaust And Muffler Repairer Relationship Specialty Start Date End Date Yan Demarco MD [address] [place] [address] PCP - General 08/22/09 02/20/10 Corin Skinner MD [address] [place] [phone] PCP - General 10/24/08 08/21/09 Akil Serrano MD [address] [place] [id number] PCP - General 02/21/10 04/16/11 documented as of this encounter
--- OUTSIDE RECORDS SUMMARY | 2024-06-28 13:57 | XMS_ITS | Encounter Summary ---
Author Organization [facility] Address [address] [place] [address] Care Team Providers Care Developmental Training Counselor Name Role Phone Yan Demarco MD Primary Care Provider Corin Skinner MD Primary Care Provider [phone] Encounter Details Date Type Department Care Team (Late st Contact Info) Description 12/31/2004 Office Visit [facility] - Maple conversion [address] [place] [address] Yan Guadarrama MD [address] [facility], Level [address] [place] [address] Social History Tobacco Use Types [...] 23:08) Addenda for MIGUEL ANGEL MASON VisitID: [id number] Date: 12/31/2004 12/31/2004 22:44 transferred from rehab [...] Gabapentin, Hydrocortosone, Levothyroxin, Methylphenidate, MOM). --2339 Alona Figueroa R.N. Allergies No known drug allergies. --2339 Alona Figueroa R.N. History Chief Complaint: (Child increasingly restless today and screaming intermittantly. G-tube not fuctioning as normal and abdomen distended and firm.). Unable to quantify level of pain. 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 PAST HX: No [...] drug warning given to patient. --0025 Milady Tavreas R.N. (Mother refuses urine cath You ain't puttin one of those in his wenie). --0026 Milady Taveras R.N. (Mother will attempt to obtain clean catch). --0026 Milady Taveras R.N. (Gastroview started via peg tube 30cc in 500cc). --0042 Milady Taveras R.N. RR: 16 regular (unlabored). The patient is sleeping. --0106 Raleigh Lazo R.N. [facility] [place] [facility] --0322 Milady Taveras R.N. Patient transported to [place] by stretcher with nurse and tech. --0348 [...] is sleeping. Patient waiting for admit bed. --0453 Milady Taveras R.N. IV / I&O Flowsheet IVsite: location left hand. Started: 20g angiocath; aseptic technique used; good blood return noted; one attempt. Saline lock in place. IV line accessed- flushed with saline and blood drawn. --002 Raleigh Lazo R.N. IV start unsuccessful: two attempts. --002 Milady Taveras R.N. DISPOSITION / DISCHARGE Transported via stretcher by tech. Report was given (to Deb Garcia). --12 Tenisha Heredia, Nurse Associate. Clara Guzman R.N., R.N., Nurse Associate. Locked/Released at 01/02/2005 9:37 by Rachel Reynolds R.N. documented in this encounter Plan of Treatment Upcoming Encounters Date Type Department Care Team (Late st Contact Info) Description 07/06/2024 13:40 EST Office Visit [facility] Endocrinology - [address] [address] Wilder Zaidi, [address] [place] [phone] 09/09/2024 10:20 EST Office Visit [facility] End[facility] [address] [address] Day Littlejohn MD PhD [address] [place] [phone] documented as of this encounter Visit Diagnoses Not on filedocumented in this encounter Care Teams Developmental Training Counselor Relationship Specialty Start Date End Date Yan Demarco MD [address] [place] [address] PCP - General 08/22/09 02/20/10 Corin Skinner MD [address] [place] [phone] PCP - General 10/24/08 08/21/09 documented as of this encounter
--- OUTSIDE RECORDS SUMMARY | 2024-06-28 13:57 | XMS_ITS | Encounter Summary ---
Author Organization [facility] Address [address] [place] [address] Care Team Providers Care Press Operator Carbon Products Name Role Phone Yan Demarco MD Primary Care Provider Corin Skinner MD Primary Care Provider [phone] Akil Serrano MD Primary Care Provider [phone] Encounter Details Date Type Department Care Team (Late st Contact Info) Description 11/21/2004 Before PRISM Converted Visit (Maple) [facility] - Maple conversion [address] [place] [address] Kylie Larson MD [address] [place] [address] [address] [place], [place] [address] Social History Tobacco Use Types Packs/Day Years [...] - KYLIE LARSON MD /re Voice ID: [id number] Doc ID: [id number] eurostimulation to try and wake him up a bit. I will review his medical course with Dr. Castañeda, who will be assisting in endocrine and electrolyte management. I will continue to keep in touch closely with Dr. Edwards, who will spearheading his endocrine management. Full evaluations will take place today to begin neuro rehab. - KYLIE LARSON MD /re Voice ID: [id number] Doc ID: [id number] documented in this encounter Plan of Treatment Upcoming Encounters Date Type Department Care Team (Late st Contact Info) Description 07/06/2024 13:40 EST Office Visit [facility] Endocrinology - [address] [address] Wilder Zaidi, DO [address] [facility] [address] [place] [address] 09/09/2024 10:20 EST Office Visit [facility] Endocrinology - [facility] [address] [place], [place] [phone] Day Littlejohn MD PhD [address] [facility] [address] [place] [address] documented as of this encounter Visit Diagnoses Not on filedocumented in this encounter Care Teams Press Operator Carbon Products Relationship Specialty Start Date End Date Yan Demarco MD [address] [place] [address] PCP - General 08/22/09 02/20/10 Corin Skinner MD [address] [place] [phone] PCP - General 10/24/08 08/21/09 Akil Serrano MD [address] [place] [address] PCP - General 02/21/10 04/16/11 documented as of this encounter
--- OUTSIDE RECORDS SUMMARY | 2024-06-28 13:57 | XMS_ITS | Encounter Summary ---
Author Organization [facility] Address [address] [place] [address] Care Team Providers Care Water Plant Pump Operator Supervisor Name Role Phone Yan Demarco MD Primary Care Provider [phone] Corin Skinner MD Primary Care Provider Akil Serrano MD Primary Care Provider [phone] Encounter Details Date Type Department Care Team (Late st Contact Info) Description 11/28/2004 Before PRISM Converted Visit (Maple) [facility] - Maple conversion [address] [place] [address] Allison Alarcon MD [address] [place] [phone] Social History Tobacco Use Types Packs/Day Years [...] - ALLISON ALARCON MD /re Voice ID: [id number] Doc ID: [id number] agitation and wailing have to do with pain. Amantadine has been increased, but this is not resulting in a marked change in his overall status. Questionable whether it has increased his agitation. Neurontin is a reasonable medication to start and trial. PLAN: 1. Will start Neurontin 100 mg bid 2. Re-check BUN and sodium tomorrow. - ALLISON ALARCON MD /re Voice ID: [id number] Doc ID: [id number] documented in this encounter Plan of Treatment Upcoming Encounters Date Type Department Care Team (Late st Contact Info) Description 07/06/2024 13:40 EST Office Visit [facility] Endocrinology - [facility] [address] [place] [address] Wilder Zaidi, DO 62 [facility] [address] [place] [address] 09/09/2024 10:20 EST Office Visit [facility] Endocrinology - [facility] [address] [place] [address] Day Littlejohn MD PhD 62 [facility] [address] [place] [address] documented as of this encounter Visit Diagnoses Not on filedocumented in this encounter Care Teams Water Plant Pump Operator Supervisor Relationship Specialty Start Date End Date Yan Demarco MD [address] [place] [address] PCP - General 08/22/09 02/20/10 Corin Skinner MD [address] [place] [phone] PCP - General 10/24/08 08/21/09 Aikl Serrano MD 74 [facility] [place], [place] [address] PCP - General 02/21/10 04/16/11 documented as of this encounter
--- OUTSIDE RECORDS SUMMARY | 2024-06-28 13:57 | XMS_ITS | Encounter Summary ---
Author Organization [facility] Address [address] [place] [address] Care Team Providers Care Behavioral Health Care Manager Name Role Phone Yan Demarco MD Primary Care Provider Corin Skinner MD Primary Care Provider Akil Serrano MD Primary Care Provider [phone] Encounter Details Date Type Department Care Team (Late st Contact Info) Description 12/04/2004 Before PRISM Converted Visit (Maple) [facility] - Maple conversion [address] [place] [address] Allison Alarcon MD 0 [place] [phone] Social History Tobacco Use Types Packs/Day Years [...] - ALLISON ALARCON MD /ss Voice ID: [id number] Doc ID: [id number] times of therapies. PLAN: Continue with full program. (Thirty-five minutes total time, greater than 50% direct discussion and review of patient's care with mom and care coordination with team). - ALLISON ALARCON MD /ss Voice ID: [id number] Doc ID: [id number] documented in this encounter Plan of Treatment Upcoming Encounters Date Type Department Care Team (Late st Contact Info) Description 07/06/2024 13:40 EST Office Visit [facility] Endocrinology - [facility] [address] [place] [address] Wilder Zaidi, DO 62 [facility] [address] [place] [address] 09/09/2024 10:20 EST Office Visit [facility] Endocrinology - [facility] [address] [place] [address] Day Littlejohn MD PhD 62 [facility] [address] [place] [address] documented as of this encounter Visit Diagnoses Not on filedocumented in this encounter Care Teams Behavioral Health Care Manager Relationship Specialty Start Date End Date Yan Demarco MD [address] [place] [phone] PCP - General 08/22/09 02/20/10 Corin Skinner MD [address] [place] [phone] PCP - General 10/24/08 08/21/09 Akil Serrano MD 74 [facility] [place], [place] [address] PCP - General 02/21/10 04/16/11 documented as of this encounter
--- OUTSIDE RECORDS SUMMARY | 2024-06-28 13:57 | XMS_ITS | Encounter Summary ---
Author Organization [facility] Address [address] [place] [address] Care Team Providers Care Tool Distributor Name Role Phone Yan Demarco MD Primary Care Provider Corin Skinner MD Primary Care Provider Akil Serrano MD Primary Care Provider [phone] Encounter Details Date Type Department Care Team (Late st Contact Info) Description 11/26/2004 Before PRISM Converted Visit (Maple) [facility] - Maple conversion [address] [place] [address] Allison Alarcon MD 0 [place] [phone] Social History Tobacco Use Types Packs/Day Years [...] on 11/27/2004 12:05:06. - ALLISON ALARCON MD /electronics installer Voice ID: [id number] Doc ID: [id number] blish some consistency as far as yes [...] team rounds tomorrow. - ALLISON ALARCON MD /electronics installer Voice ID: [id number] Doc ID: [id number] documented in this encounter Plan of Treatment Upcoming Encounters Date Type Department Care Team (Late st Contact Info) Description 07/06/2024 13:40 EST Office Visit [facility] Endocrinology - [facility] [address] [place] [address] Wilder Zaidi, DO 62 [facility] [address] [place] [phone] 09/09/2024 10:20 EST Office Visit [facility] Endocrinology - [address] [address] Day Littlejohn MD PhD [address] [place] [phone] documented as of this encounter Visit Diagnoses Not on filedocumented in this encounter Care Teams Tool Distributor Relationship Specialty Start Date End Date Yan Demarco MD [address] [place] [address] PCP - General 08/22/09 02/20/10 Corin Skinner MD [address] [place] [phone] PCP - General 10/24/08 08/21/09 Akil Serrano MD 74 [facility] [address] PCP - General 02/21/10 04/16/11 documented as of this encounter
--- OUTSIDE RECORDS SUMMARY | 2024-06-28 13:57 | XMS_ITS | Encounter Summary ---
Author Organization [facility] Address [address] [place] [address] Care Team Providers Care Shook Splicer Name Role Phone Yan Demarco MD Primary Care Provider Corin Skinner MD Primary Care Provider Akil Serrano MD Primary Care Provider [phone] Encounter Details Date Type Department Care Team (Late st Contact Info) Description 11/25/2004 Before PRISM Converted Visit (Maple) [facility] - Maple conversion [address] [place] [address] Kylie Larson MD [address] [place] [address] [address] [place], [place] [address] Social History Tobacco Use Types Packs/Day Years [...] - KYLIE LARSON MD /re Voice ID: [id number]: [id number] aspalpha -KYLIE LARSON MD /re Voice ID: [id number] Doc ID: [id number] documented in this encounter Plan of Treatment Upcoming Encounters Date Type Department Care Team (Late st Contact Info) Description 07/06/2024 13:40 EST Office Visit [facility] Endocrinology - [address] [address] Wilder Zaidi, [address] [place] [address] 09/09/2024 10:20 EST Office Visit [facility] Endocrinology - [address] [phone] Day Littlejohn MD PhD [address] [place] [phone] documented as of this encounter Visit Diagnoses Not on filedocumented in this encounter Care Teams Shook Splicer Relationship Specialty Start Date End Date Yan Demarco MD [address] [place] [address] PCP - General 08/22/09 02/20/10 Corin Skinner MD [address] [place] [phone] PCP - General 10/24/08 08/21/09 Akil Serrano MD [address] [place] [address] PCP - General 02/21/10 04/16/11 documented as of this encounter
--- OUTSIDE RECORDS SUMMARY | 2024-06-28 13:57 | XMS_ITS | Encounter Summary ---
Author Organization [facility] Address [address] [place] [address] Care Team Providers Care Stopper Setter Name Role Phone Yan Demarco MD Primary Care Provider Corin Skinner MD Primary Care Provider Akil Serrano MD Primary Care Provider [phone] Encounter Details Date Type Department Care Team (Late st Contact Info) Description 12/08/2004 Before PRISM Converted Visit (Maple) [facility] - Maple conversion [address] [place], [place] [address] Raleigh Angelo MD [address] [phone] Social History Tobacco Use Types Packs/Day Years [...] RALEIGH ANGELO MD on 12/09/2004 10:44:20. - RALEIGH ANGELO MD /lr Voice ID: [id number] Doc ID: [id number] nthroid, and hydrocortisone. Continue periodic monitoring of electrolytes and renal function. - RALEIGH ANGELO MD /lr Voice ID: [id number] Doc ID: [id number] documented in this encounter Plan of Treatment Upcoming Encounters Date Type Department Care Team (Late st Contact Info) Description 07/06/2024 13:40 EST Office Visit [facility] Endocrinology - [address] [phone] Wilder Zaidi, [address] [place] [phone] 09/09/2024 10:20 EST Office Visit [facility] Endocrinology - [address] [phone] Day Littlejohn MD PhD [address] [place] [phone] documented as of this encounter Visit Diagnoses Not on filedocumented in this encounter Care Teams Stopper Setter Relationship Specialty Start Date End Date Yan Demarco MD [address] [place] [address] PCP - General 08/22/09 02/20/10 Corin Skinner MD [address] [place] [phone] PCP - General 10/24/08 08/21/09 Akil Serrano MD [address] [place] [address] PCP - General 02/21/10 04/16/11 documented as of this encounter
--- OUTSIDE RECORDS SUMMARY | 2024-06-28 13:57 | XMS_ITS | Encounter Summary ---
Author Organization [facility] Address [address] [place] [address] Care Team Providers Care Dietary Aide Teacher Name Role Phone Yan Demarco MD Primary Care Provider [phone] Corin Skinner MD Primary Care Provider Akil Serrano MD Primary Care Provider [phone] Encounter Details Date Type Department Care Team (Late st Contact Info) Description 12/07/2004 Before PRISM Converted Visit (Maple) [facility] - Maple conversion [address] [place], [place] [address] Raleigh Angelo MD [address] [phone] Social History Tobacco Use Types Packs/Day Years [...] - RALEIGH ANGELO MD /lr Voice ID: [id number] Doc ID: [id number] [facility] ASSESSMENT AND PLAN: Continue full program activities. Review laboratory results when available. - RALEIGH ANGELO MD /lr Voice ID: [id number] Doc ID: [id number] documented in this encounter Plan of Treatment Upcoming Encounters Date Type Department Care Team (Late st Contact Info) Description 07/06/2024 13:40 EST Office Visit [facility] Endocrinology - [address] [phone] Wilder Zaidi, DO [address] [place] [phone] 09/09/2024 10:20 EST Office Visit [facility] Endocrinology - [address] [address] Day Littlejohn MD PhD [address] [place] [phone] documented as of this encounter Visit Diagnoses Not on filedocumented in this encounter Care Teams Dietary Aide Teacher Relationship Specialty Start Date End Date Yan Demarco MD [address] [place] [address] PCP - General 08/22/09 02/20/10 Corin Skinner MD [address] [phone] PCP - General 10/24/08 08/21/09 Akil Serrano MD [address] [address] PCP - General 02/21/10 04/16/11 documented as of this encounter
--- OUTSIDE RECORDS SUMMARY | 2024-06-28 13:57 | XMS_ITS | Encounter Summary ---
Author Organization [facility] Address [address] [place] [address] Care Team Providers Care Solar Energy Installation Manager Name Role Phone Unavailable Primary Care Provider Unavailabl e Encounter Details Date Type Department Care Team (Late st Contact Info) Description 01/01/2005 4:51 EDT - 01/15/2005 11:59 EDT Hospital Encounter [facility] Pediatric Unit [address] [place] [address] Jodi Parr MD 111 [facility], [address] [phone] Slava Pineda MD Discharge Disposition: [facility] Social History Tobacco Use Types Packs/Day [...] left-sided weakness. Miguel Angel had been at [facility] since his discharge from [facility] on November 20, 2004. He had been sent to the [facility] Department because of increased irritability and agitation, [...] date. DISPOSITION: The patient was discharged to [facility] facility. CONDITION AT DISCHARGE: Fair. DISCHARGE INSTRUCTIONS: Per patient family and [facility] facility: Discharge medications: Omeprazole 40 mg PO per G-tube twice daily Gabapentin 100 mg per G-tube twice daily DDAVP 0.15 mg per G-tube at 8:00 a.m., at midnight, and 0.1 mg per G-tube at 1600 Hydrocortisone 10 mg, 5 mg, 5 mg PO q8 hours Levothyroxine 150 mcg per G-tube daily Methylphenidate 5 mg per G-tube daily. [facility] was instructed to restrict free fluids to no more than 2 liters on day of discharge. They were also instructed to check serum sodium levels daily and call Dr. Edwards at [facility] if there were any questions regarding his sodium. Free fluid targets would be based on daily sodium levels. The patient has already been followed by Dr. Edwards and he is involvedin his care. [facility] is aware that they can call Dr. Edwards when they have any questions regarding endocrine issues for Miguel Angel. Signed by Jodi Parr MD 02/20/2005 07:31 Isaebl Tilley, [facility], [facility] OK[place]HOMA CITYchu Parr MD= - Isabel Tilley MD P - MH Job ID: [id number] Document ID: [id number] cc: MD Thad Jones MD Thomas Moseley, [...] Info) Description 07/06/2024 13:40 EST Office Visit [facility] Endocrinology - [address] [address] Wilder Zaidi, [address] [place] [phone] 09/09/2024 10:20 EST Office Visit [facility] Endocrinology [address] [address] Day Littlejohn MD PhD [address] [place] [phone] documented as of this encounter Procedures [...] since previous examinations. D: ??01/10/05 T: ??01/15/05 /[facility] Procedure Note Jose Armando Barker [...] No other new findings since previous examinations. /[facility] us Wes Borja MD IMG MRI ORDERABLES Final Resul t * PORTABLE CHEST 1 VIEW (01/09/2005 9:51 [...] 01/12/05 /vicky Isabel Tilley MD IMG DIAGNOSTIC IMAGING HERMES HANNON Final Result documented in this encounter Visit Diagnoses Not on filedocumented in this encounter
--- OUTSIDE RECORDS SUMMARY | 2024-06-28 13:57 | XMS_ITS | Encounter Summary ---
Author Organization [facility] Address [address] [place] [address] Care Team Providers Care Lumber Driver Name Role Phone Yan Demarco MD Primary Care Provider Corin Skinner MD Primary Care Provider [phone] Akil Serrano MD Primary Care Provider [phone] Encounter Details Date Type Department Care Team (Late st Contact Info) Description 11/21/2004 Before PRISM Converted Visit (Maple) [facility] - Maple conversion [address] [place], [place] [address] Raleigh Angelo MD [address] [phone] Social History Tobacco Use Types Packs/Day Years [...] HISTORY: The patient lives withhis mother in [place], [place]. His mother has endstage renal disease [...] 11/22/2004 15:57:53 - re Voice ID - [id number] Document ID - [id number] cc: KYLIE TREJO MD, REQUESTING PHYSICIAN ADE [...] 11/22/2004 15:57:53 - re Voice ID - [id number] Document ID - [id number] cc: ADE MALLOY MD, REFERRING PHYSICIAN TOO DIAZ MD, PRIMARY CARE PHYSICIAN KYLIE TREJO MD, REQUESTING PHYSICIAN documented in this encounter Plan of Treatment Upcoming Encounters Date Type Department Care Team (Late st Contact Info) Description 07/06/2024 13:40 EST Office Visit [facility] Endocrinology - [address] [address] Wilder Zaidi, 62 [facility] [address] [place] [address] 09/09/2024 10:20 EST Office Visit [facility] Endocrinology - [facility] [address] [place] [address] Day Littlejohn MD PhD 62 [facility] [address] [place] [address] documented as of this encounter Visit Diagnoses Not on filedocumented in this encounter Care Teams Lumber Driver Relationship Specialty Start Date End Date Yan Demarco MD [address] [place] [address] PCP - General 08/22/09 02/20/10 Corin Skinner MD [address] [place] [phone] PCP - General 10/24/08 08/21/09 Akil Serrano MD [address] [place] [address] PCP - General 02/21/10 04/16/11 documented as of this encounter
--- OUTSIDE RECORDS SUMMARY | 2024-06-28 13:57 | XMS_ITS | Encounter Summary ---
Author Organization [facility] Address [address] [place] [address] Care Team Providers Care Billing Clinician Name Role Phone Yan Demarco MD Primary Care Provider Corin Skinner MD Primary Care Provider Akil Serrano MD Primary Care Provider [phone] Encounter Details Date Type Department Care Team (Late st Contact Info) Description 11/28/2004 Before PRISM Converted Visit (Maple) [facility] - Maple conversion [address] [place], [place] [address] Raleigh Angelo MD [address] [phone] Social History Tobacco Use Types Packs/Day Years [...] - RALEIGH ANGELO MD /lr Voice ID: [id number] Doc ID: [id number] 0Vital signs are stable. The patient is afebrile. Cardiac rhythm is regular. Lung medellin are clear.Abdomen is soft. JVD is not visible. ASSESSMENT AND PLAN: Continue full program activities. Continue gastrostomy tube feedings and fluidadministration. - RALEIGH ANGELO MD /lr Voice ID: [id number] Doc ID: [id number] documented in this encounter Plan of Treatment Upcoming Encounters Date Type Department Care Team (Late st Contact Info) Description 07/06/2024 13:40 EST Office Visit [facility] Endocrinology - [address] [phone] Wilder Zaidi, [address] [place] [phone] 09/09/2024 10:20 EST Office Visit [facility] Endocrinology - [address] [address] Day Littlejohn MD PhD [address] [place] [phone] documented as of this encounter Visit Diagnoses Not on filedocumented in this encounter Care Teams Billing Clinician Relationship Specialty Start Date End Date Yan Demarco MD [address] [place] [address] PCP - General 08/22/09 02/20/10 Corin Skinner MD [address] [place] [phone] PCP - General 10/24/08 08/21/09 Akil Serrano MD 74 [facility],[address] [address] PCP - General 02/21/10 04/16/11 documented as of this encounter
--- OUTSIDE RECORDS SUMMARY | 2024-06-28 13:57 | XMS_ITS | Encounter Summary ---
Author Organization [facility] Address [address] [place] [address] Care Team Providers Care Strip Mill Operator Name Role Phone Yan Demarco MD Primary Care Provider [phone] Corin Skinner MD Primary Care Provider Akil Serrano MD Primary Care Provider [phone] Encounter Details Date Type Department Care Team (Late st Contact Info) Description 11/29/2004 Before PRISM Converted Visit (Maple) [facility] - Maple conversion [address] [place], [place] 336151 Raleigh Angelo MD [address] [phone] Social History Tobacco Use Types Packs/Day Years [...] - RALEIGH ANGELO MD /re Voice ID: [id number] Doc ID: [id number] oring electrolytes, now on an every other day schedule. - RALEIGH ANGELO MD /re Voice ID: [id number] Doc ID: [id number] documented in this encounter Plan of Treatment Upcoming Encounters Date Type Department Care Team (Late st Contact Info) Description 07/06/2024 13:40 EST Office Visit [facility] Endocrinology - [address] [phone] Wilder Zaidi, [address] [place] [phone] 09/09/2024 10:20 EST Office Visit [facility] Endocrinology - [address] [phone] Day Littlejohn MD PhD [address] [place] [phone] documented as of this encounter Visit Diagnoses Not on filedocumented in this encounter Care Teams Strip Mill Operator Relationship Specialty Start Date End Date Yan Demarco MD [address] [place] [address] PCP - General 08/22/09 02/20/10 Corin Skinner MD [address] [phone] PCP - General 10/24/08 08/21/09 Akil Serrano MD 74 [facility] [address] [place] [address] PCP - General 02/21/10 04/16/11 documented as of this encounter
--- OUTSIDE RECORDS SUMMARY | 2024-06-28 13:57 | XMS_ITS | Encounter Summary ---
Author Organization [facility] Address [address] [place] [address] Care Team Providers Care Sort Operations Supervisor Name Role Phone Yan Demarco MD Primary Care Provider Corin Skinner MD Primary Care Provider Akil Serraon MD Primary Care Provider [phone] Encounter Details Date Type Department Care Team (Late st Contact Info) Description 11/22/2004 Before PRISM Converted Visit (Maple) [facility] - Maple conversion [address] [place], [place] [address] Raleigh Angelo MD [address] [phone] Social History Tobacco Use Types Packs/Day Years [...] - RALEIGH ANGELO MD /lr Voice ID: [id number] Doc ID: [id number] stright ASSESSMENT AND PLAN: Continue program activities. Increase free water by 200 cc q.i.d. Continue monitoring of electrolytes and renal status. Continue DDAVP, hydrocortisone, and levothyroxine. - RALEIGH ANGELO MD /lr Voice ID: [id number] Doc ID: [id number] documented in this encounter Plan of Treatment Upcoming Encounters Date Type Department Care Team (Late st Contact Info) Description 07/06/2024 13:40 EST Office Visit [facility] Endocrinology - [address] [address] Wilder Zaidi, DO [address] [place] [address] [place] [phone] 09/09/2024 10:20 EST Office Visit [facility] Endocrinology [address] [address] Day Littlejohn MD PhD [address] [place] [phone] documented as of this encounter Visit Diagnoses Not on filedocumented in this encounter Care Teams Sort Operations Supervisor Relationship Specialty Start Date End Date Yan Demarco MD [address] [place] [address] PCP - General 08/22/09 02/20/10 Corin Skinner MD [address] [place] [phone] PCP - General 10/24/08 08/21/09 Akil Serrano MD 74 [facility] 100 [place] [address] PCP - General 02/21/10 04/16/11 documented as of this encounter
--- OUTSIDE RECORDS SUMMARY | 2024-06-28 13:57 | XMS_ITS | Encounter Summary ---
Author Organization [facility] Address [address] [place] [address] Care Team Providers Care Cook Chili Name Role Phone Yan Demarco MD Primary Care Provider [phone] Corin Skinner MD Primary Care Provider [phone] Encounter Details Date Type Department Care Team (Late st Contact Info) Description 01/31/2005 Before PRISM Converted Visit (Maple) [facility] - Maple conversion [address] [place] [address] Wicho Carlton MD 0 [place] [address] Social History Tobacco Use Types [...] Carlton MD P - ss Job ID: [id number] Document ID: [id number] cc: documented in this encounter Plan of Treatment Upcoming Encounters Date Type Department Care Team (Late st Contact Info) Description 07/06/2024 13:40 EST Office Visit [facility] Endocrinology - [address] [phone] Wilder Zaidi, [address] [place] [phone] 09/09/2024 10:20 EST Office Visit [address] [phone] Day Littlejohn MD PhD [address] [place] [phone] documented as of this encounter Visit Diagnoses Not on filedocumented in this encounter Care Teams Cook Chili Relationship Specialty Start Date End Date Yan Demarco MD [address] [place] [address] PCP - General 08/22/09 02/20/10 Corin Skinner MD [address] [place] [phone] PCP - General 10/24/08 08/21/09 documented as of this encounter
--- OUTSIDE RECORDS SUMMARY | 2024-06-28 13:57 | XMS_ITS | Encounter Summary ---
Author Organization [facility] Address [address] [place] [address] Care Team Providers Care Packaging Inspector Name Role Phone Yan Demarco MD Primary Care Provider Corin Skinner MD Primary Care Provider Akil Serrano MD Primary Care Provider [phone] Encounter Details Date Type Department Care Team (Late st Contact Info) Description 12/06/2004 Before PRISM Converted Visit (Maple) [facility] - Maple conversion [address] [place] [address] Allison Alarcon MD 0 [place] [phone] Social History Tobacco Use Types Packs/Day Years [...] - ALLISON ALARCON MD /re Voice ID: [id number] Doc ID: [id number] ir recommendations later this afternoon. PLAN: 1. Discontinue amantadine. 2. Start Ritalin give dose today then start him tomorrow morning. 3. Offer Percocet as an alternative to codeine. 4. Will flush the PICC with heparin every day to hopefully decrease clotting off. 5. Check BUN, creatinine, sodium, and free T4 tomorrow. 6. UA/C and S. - ALLISON ALARCON MD /re Voice ID: [id number] Doc ID: [id number] documented in this encounter Plan of Treatment Upcoming Encounters Date Type Department Care Team (Late st Contact Info) Description 07/06/2024 13:40 EST Office Visit [facility] Endocrinology - [address] [address] Wilder Zaidi, 62 [facility] [address] [place] [address] 09/09/2024 10:20 EST Office Visit [facility] Endocrinology - [address] [address] Day Littlejohn MD PhD 62 [facility] [address] [place] [address] documented as of this encounter Visit Diagnoses Not on filedocumented in this encounter Care Teams Packaging Inspector Relationship Specialty Start Date End Date Yan Demarco MD [address] [place] [address] PCP - General 08/22/09 02/20/10 Corin Skinner MD [address] [place] [phone] PCP - General 10/24/08 08/21/09 Akil Serrano MD [address] [address] PCP - General 02/21/10 04/16/11 documented as of this encounter
--- OUTSIDE RECORDS SUMMARY | 2024-06-28 13:57 | XMS_ITS | Encounter Summary ---
Author Organization [facility] Address [address] [place] [address] Care Team Providers Care Soa Integration Developer Name Role Phone Yan Demarco MD Primary Care Provider Corin Skinner MD Primary Care Provider Akil Serrano MD Primary Care Provider [phone] Encounter Details Date Type Department Care Team (Late st Contact Info) Description 12/02/2004 Before PRISM Converted Visit (Maple) [facility] - Maple conversion [address] [place] [address] Allison Alarcon MD 0 [place] [phone] Social History Tobacco Use Types Packs/Day Years [...] - ALLISON ALARCON MD /re Voice ID: [id number] Doc ID: [id number] PICC line has clotted off. IV team is recommending a TPA treatment and we are waiting for that to be acquired before we can try to get his labs. Otherwise, the patient is remaining stable. - ALLISON ALARCON MD /re Voice ID: [id number] Doc ID: [id number] documented in this encounter Plan of Treatment Upcoming Encounters Date Type Department Care Team (Late st Contact Info) Description 07/06/2024 13:40 EST Office Visit [facility] Endocrinology - [address] [phone] Wilder Zaidi, DO [address] [place] [phone] 09/09/2024 10:20 EST Office Visit [address] [address] Day Littlejohn MD PhD [address] [place] [phone] documented as of this encounter Visit Diagnoses Not on filedocumented in this encounter Care Teams Soa Integration Developer Relationship Specialty Start Date End Date Yan Demarco MD [address] [place] [phone] PCP - General 08/22/09 02/20/10 Corin Skinner MD [address] [place] [phone] PCP - General 10/24/08 08/21/09 Akil Serrano MD 74 [facility] [address] [place] [address] PCP - General 02/21/10 04/16/11 documented as of this encounter
--- OUTSIDE RECORDS SUMMARY | 2024-06-28 13:57 | XMS_ITS | Encounter Summary ---
Author Organization [facility] Address [address] [place] [address] Care Team Providers Care Director Of Primary Care Name Role Phone Yan Demarco MD Primary Care Provider Corin Skinner MD Primary Care Provider Akil Serrano MD Primary Care Provider [phone] Encounter Details Date Type Department Care Team (Late st Contact Info) Description 11/20/2004 Before PRISM Converted Visit (Maple) [facility] - Maple conversion [address] [place] [address] Marvin Gonzalez MD [address] [place] [phone] Social History Tobacco Use Types Packs/Day [...] 07/06/2024 13:40 EST Office Visit [facility] Endocrinology - [facility] [address] [place] [address] Wilder Zaidi, 62 [facility] [address] [place] [address] 09/09/2024 10:20 EST Office Visit [facility] Endocrinology - [place] [address] [place], [place] [phone] Day Littlejohn MD PhD 62 [facility] [address] [place] [phone] documented as of this encounter Visit Diagnoses Not on filedocumented in this encounter Care Teams Director Of Primary Care Relationship Specialty Start Date End Date Yan Demarco MD [address] [place] [phone] PCP - General 08/22/09 02/20/10 Corin Skinner MD [address] [place] [phone] PCP - General 10/24/08 08/21/09 Akil Serrano MD 74 [facility] [address] [place] [address] PCP - General 02/21/10 04/16/11 documented as of this encounter
--- OUTSIDE RECORDS SUMMARY | 2024-06-28 13:57 | XMS_ITS | Encounter Summary ---
Author Organization [facility] Address [address] [place] [address] Care Team Providers Care Employee Communications Intern Name Role Phone Yan Demarco MD Primary Care Provider Corin Skinner MD Primary Care Provider Akil Serrano MD Primary Care Provider [phone] Encounter Details Date Type Department Care Team (Late st Contact Info) Description 11/27/2004 Before PRISM Converted Visit (Maple) [facility] - Maple conversion [address] [place] [address] Allison Alarcon MD 0 [place] [phone] Social History Tobacco Use Types Packs/Day Years [...] working on being able to establish transfer [facility]. Team supports, at this point, that we are probably looking at making that transition towards the end of next week on December 07. Teams concerns reviewed in terms of moms interaction and participation and how to work with her around this. Also additional extended discussion with [employer] regarding best modes of communication and management [...] - ALLISON ALARCON MD /lr Voice ID: [id number] Doc ID: [id number] Continues to be appropriate for acute inpatient rehab. 2. We will trial an increase of amantadine. 3. Continue present water intake. 4. Will follow up with Dr. Edwards regarding TSH results. (Total time 45 minutes, greater than 50% direct discussion and review with mom and care coordination with team on aboveissues.) - ALLISON ALARCON MD /lr Voice ID: [id number] Doc ID: [id number] documented in this encounter Plan of Treatment Upcoming Encounters Date Type Department Care Team (Late st Contact Info) Description 07/06/2024 13:40 EST Office Visit [facility] Endocrinology - [facility] [address] [place] [address] Wilder Zaidi, DO 62 [facility] [address] [place] [phone] 09/09/2024 10:20 EST Office Visit [facility] Endocrinology - [facility] [address] [place] [address] Day Littlejohn MD PhD [address] [place] [phone] documented as of this encounter Visit Diagnoses Not on filedocumented in this encounter Care Teams Employee Communications Intern Relationship Specialty Start Date End Date Yan Demarco MD [address] [place] [phone] PCP - General 08/22/09 02/20/10 Corin Skinner MD [address] [place] [phone] PCP - General 10/24/08 08/21/09 Akil Serrano MD 74 [facility] 100 [place] [address] PCP - General 02/21/10 04/16/11 documented as of this encounter
--- OUTSIDE RECORDS SUMMARY | 2024-06-28 13:57 | XMS_ITS | Encounter Summary ---
Author Organization [facility] Address [address] [place] [address] Care Team Providers Care Rodent Exterminator Name Role Phone Yan Demarco MD Primary Care Provider [phone] Corin Skinner MD Primary Care Provider [phone] Akil Serrano MD Primary Care Provider [phone] Encounter Details Date Type Department Care Team (Late st Contact Info) Description 11/24/2004 Before PRISM Converted Visit (Maple) [facility] - Maple conversion [address] [place] [address] Kylie Larson MD [address] [place] [address] [address] [place], [place] [address] Social History Tobacco Use Types Packs/Day Years [...] - KYLIE LARSON MD /re Voice ID: [id number] Doc ID: [id number] - KYLIE LARSON MD /re Voice ID: [id number] Doc ID: [id number] documented in this encounter Plan of Treatment Upcoming Encounters Date Type Department Care Team (Late st Contact Info) Description 07/06/2024 13:40 EST Office Visit [facility] Endocrinology - [facility] [address] [place] [address] Wilder Zaidi, DO 62 [facility] [address] [place] [address] 09/09/2024 10:20 EST Office Visit [facility] Endocrinology - [facility] [address] [place] [address] Day Littlejohn MD PhD 62 [facility] [address] [place] [address] documented as of this encounter Visit Diagnoses Not on filedocumented in this encounter Care Teams Rodent Exterminator Relationship Specialty Start Date End Date Yan Demarco MD [address] [place] [address] PCP - General 08/22/09 02/20/10 Corin Skinner MD [address] [place] [phone] PCP - General 10/24/08 08/21/09 Akil Serrano MD 74 [facility] [place], [place] [address] PCP - General 02/21/10 04/16/11 documented as of this encounter
--- OUTSIDE RECORDS SUMMARY | 2024-06-28 13:57 | XMS_ITS | Encounter Summary ---
Author Organization [facility] Address [address] [place] [address] Care Team Providers Care Program Supervisor Name Role Phone Yan Demarco MD Primary Care Provider Corin Skinner MD Primary Care Provider Akil Serrano MD Primary Care Provider [phone] Encounter Details Date Type Department Care Team (Late st Contact Info) Description 12/05/2004 Before PRISM Converted Visit (Maple) [facility] - Maple conversion [address] [place] [address] Allison Alarcon MD 0 [place] [phone] Social History Tobacco Use Types Packs/Day Years [...] - ALLISON ALARCON MD /re Voice ID: [id number] Doc ID: [id number] [facility] - ALLISON ALARCON MD /re Voice ID: [id number] Doc ID: [id number] documented in this encounter Plan of Treatment Upcoming Encounters Date Type Department Care Team (Late st Contact Info) Description 07/06/2024 13:40 EST Office Visit [facility] Endocrinology - [address] [phone] Wilder Zaidi, [address] [place] [address] [place] [phone] 09/09/2024 10:20 EST Office Visit [facility] - [address] [address] Day Littlejohn MD PhD [address] [place] [phone] documented as of this encounter Visit Diagnoses Not on filedocumented in this encounter Care Teams Program Supervisor Relationship Specialty Start Date End Date Yan Demarco MD [address] [place] [phone] PCP - General 08/22/09 02/20/10 Corin Skinner MD [address] [place] [phone] PCP - General 10/24/08 08/21/09 Akil Serrano MD [address] [place] [address] [place] [address] PCP - General 02/21/10 04/16/11 documented as of this encounter
--- OUTSIDE RECORDS SUMMARY | 2024-06-28 13:57 | XMS_ITS | Encounter Summary ---
Author Organization [facility] Address [address] [place] [address] Care Team Providers Care Water Quality Technician Name Role Phone Yan Demarco MD Primary Care Provider Corin Skinner MD Primary Care Provider Akil Serrano MD Primary Care Provider [phone] Encounter Details Date Type Department Care Team (Late st Contact Info) Description 12/10/2004 Before PRISM Converted Visit (Maple) [facility] - Maple conversion [address] [place] [address] Allison Alarcon MD [address] [place] [phone] Social History Tobacco Use Types Packs/Day Years Used Date Smoking Tobacco: Never Assessed Sex and Gender Information Value Date Recorded Sex Assigned at Not on file Legal Sex Male 18:35 EST Gender Identity Not on file Sexual Orientation Not on file documented as of this encounter Progress Notes * Allison Alracon MD - 02/15/2011 1204 EDT INPATIENT REHABILITATION [...] - ALLISON ALARCON MD /mo Voice ID: [id number] Doc ID: [id number] documented in this encounter Plan of Treatment Upcoming Encounters Date Type Department Care Team (Late st Contact Info) Description 07/06/2024 13:40 EST Office Visit [facility] Endocrinology - [address] [address] Wilder Zaidi, [address] [place] [address] [place] [phone] 09/09/2024 10:20 EST Office Visit [facility] Endocrinology [address] [address] Day Littlejohn MD PhD [address] [place] [phone] documented as of this encounter Visit Diagnoses Not on filedocumented in this encounter Care Teams Water Quality Technician Relationship Specialty Start Date End Date Yan Demarco MD [address] [place] [address] PCP - General 08/22/09 02/20/10 Corin Skinner MD [address] [place] [phone] PCP - General 10/24/08 08/21/09 Akil Serrano MD [address] [address] PCP - General 02/21/10 04/16/11 documented as of this encounter
--- OUTSIDE RECORDS SUMMARY | 2024-06-28 13:57 | XMS_ITS | Encounter Summary ---
Author Organization [facility] Address [address] [place] [address] Care Team Providers Care Childbirth Educator Name Role Phone Yan Demarco MD Primary Care Provider [phone] Corin Skinner MD Primary Care Provider Akil Serrano MD Primary Care Provider [phone] Encounter Details Date Type Department Care Team (Late st Contact Info) Description 12/01/2004 Before PRISM Converted Visit (Maple) [facility] - Maple conversion [address] [place] [address] Allison Alarcon MD 0 [place] [phone] Social History Tobacco Use Types Packs/Day Years [...] - ALLISON ALARCON MD /re Voice ID: [id number] Doc ID: [id number] ry liquid anesthetic drops to the ear and see how he responds. BUN and sodium were not drawn today due to an error. As these have been relatively stable, we will wait until tomorrow. PLAN: 1. BUN and sodium tomorrow. 2. Auralgan drops to his right ear. - ALLISON ALARCON MD /re Voice ID: [id number] Doc ID: [id number] documented in this encounter Plan of Treatment Upcoming Encounters Date Type Department Care Team (Late st Contact Info) Description 07/06/2024 13:40 EST Office Visit [facility] Endocrinology - [address] [address] Wilder Zaidi, DO [address] [place] [phone] 09/09/2024 10:20 EST Office Visit [facility] Endocrinology [address] [address] Day Littlejohn MD PhD [address] [place] [phone] documented as of this encounter Visit Diagnoses Not on filedocumented in this encounter Care Teams Childbirth Educator Relationship Specialty Start Date End Date Yan Demarco MD [address] [place] [address] PCP - General 08/22/09 02/20/10 Corin Skinner MD [address] [place] [phone] PCP - General 10/24/08 08/21/09 Akil Serrano MD [address] [address] PCP - General 02/21/10 04/16/11 documented as of this encounter
--- OUTSIDE RECORDS SUMMARY | 2024-06-28 13:57 | XMS_ITS | Encounter Summary ---
Author Organization [facility] Address [address] [place] [address] Care Team Providers Care Quality Review Specialist Name Role Phone Yan Demarco MD Primary Care Provider Corin Skinner MD Primary Care Provider [phone] Akil Serrano MD Primary Care Provider [phone] Encounter Details Date Type Department Care Team (Late st Contact Info) Description 12/03/2004 Before PRISM Converted Visit (Maple) [facility] - Maple conversion [address] [place] [address] Allison Alarcon MD [address] [place] [phone] Social History Tobacco Use Types Packs/Day Years [...] - ALLISON ALARCON MD /mt Voice ID: [id number] Doc ID: [id number] patient's care and care coordination with team and outside providers.) - ALLISON ALARCON MD /mt Voice ID: [id number] Doc ID: [id number] documented in this encounter Plan of Treatment Upcoming Encounters Date Type Department Care Team (Late st Contact Info) Description 07/06/2024 13:40 EST Office Visit [facility] Endocrinology - [facility] [address] [place] [address] Wilder Zaidi, DO [address] [facility] [address] [place] [address] 09/09/2024 10:20 EST Office Visit [facility] Endocrinology - [facility] [address] [place] [address] Day Littlejohn MD PhD [address] [facility] [address] [place] [address] documented as of this encounter Visit Diagnoses Not on filedocumented in this encounter Care Teams Quality Review Specialist Relationship Specialty Start Date End Date Yan Demarco MD [address] [place] [address] PCP - General 08/22/09 02/20/10 Corin Skinner MD [address] [place] [phone] PCP - General 10/24/08 08/21/09 Akil Serrano MD [address] [address] PCP - General 02/21/10 04/16/11 documented as of this encounter
--- OUTSIDE RECORDS SUMMARY | 2024-06-28 13:57 | XMS_ITS | Encounter Summary ---
Author Organization [facility] Address [address] [place] [address] Care Team Providers Care Sofa Back Upholsterer Name Role Phone Yan Demarco MD Primary Care Provider [phone] Corin Skinner MD Primary Care Provider [phone] Akil Serrano MD Primary Care Provider [phone] Yossi Torres MD Primary Care Provider [phone] Emilee Cody MD Primary Care Provider + Ren Vaz MD Primary Care Provider [phone] Encounter Details Date Type Department Care Team (Late st Contact Info) Description 01/01/2005 Before PRISM Converted Visit (Maple) [facility] Rehabilitation Therapy - [address] [address] Allison Alarcon MD [address] [place] [phone] Social History Tobacco Use Types Packs/Day Years [...] Info) Description 07/06/2024 13:40 EST Office Visit [facility] Endocrinology - [place] [address] [place] [address] Wilder Zaidi, DO [address] [facility] [address] [place] [address] 09/09/2024 10:20 EST Office Visit [facility] Endocrinology - [facility] [address] [place] [address] Day Littlejohn MD PhD [address] [facility] [address] [place] [address] documented as of this encounter [...] 3. ??Normal-appearing bowel without evidence of obstruction. /tns I have personally reviewed the images and the above interpretation and agree with the findings. Procedure Note Otto Mehta MD / Herve Woods MD - 02/09/2009 [...] findings. Allison Alarcon MD IMG CT ORDERABLES Final Resu lt documented in this encounter Visit Diagnoses Not on filedocumented in this encounter Care Teams Sofa Back Upholsterer Relationship Specialty Start Date End Date Yan Demarco MD [address] [place] [phone] PCP - General 08/22/09 02/20/10 Corin Skinner MD [address] [place] [phone] PCP - General 10/24/08 08/21/09 Akil Serrano MD 74 [facility] [address] [place], [place] [phone] PCP - General 02/21/10 04/16/11 Yossi Torres MD [address] [place] [phone] PCP - General 04/17/11 03/14/16 Emilee Cody MD [address] [place], [place] [phone] PCP - General 03/15/16 09/29/18 Ren Vaz MD [address] [place] [phone] PCP - General 09/30/18 documented as of this encounter
--- OUTSIDE RECORDS SUMMARY | 2024-06-28 13:57 | XMS_ITS | Encounter Summary ---
Author Organization [facility] Address [address] [place] [address] Care Team Providers Care Esthetician Spa Name Role Phone Yan Demarco MD Primary Care Provider [phone] Corin Skinner MD Primary Care Provider Akil Serrano MD Primary Care Provider [phone] Encounter Details Date Type Department Care Team (Late st Contact Info) Description 11/23/2004 Before PRISM Converted Visit (Maple) [facility] - Maple conversion [address] [place] [address] Kylie Larson MD [address] [place] [address] [address] [place], [place] [address] Social History Tobacco Use Types Packs/Day Years [...] - KYLIE LARSON MD /re Voice ID: [id number] Doc ID: [id number] n the next few days. We will continue to keep watch on his electrolyte and fluid status. I will keep in contact with Dr. Edwards as necessary. - KYLIE LARSON MD /re Voice ID: [id number] Doc ID:[id number] documented in this encounter Plan of Treatment Upcoming Encounters Date Type Department Care Team (Late st Contact Info) Description 07/06/2024 13:40 EST Office Visit [facility] Endocrinology - [address] [address] Wilder Zaidi, DO [address] [place] [address] [address] [place] [phone] 09/09/2024 10:20 EST Office Visit [facility] Endocrinology - [address] [phone] Day Littlejohn MD PhD [address] [facility] [address] [place] [address] documented as of this encounter Visit Diagnoses Not on filedocumented in this encounter Care Teams Esthetician Spa Relationship Specialty Start Date End Date Yan Demarco MD [address] [place] [address] PCP - General 08/22/09 02/20/10 Corin Skinner MD [address] [phone] PCP - General 10/24/08 08/21/09 Akil Serrano MD 74 [facility] [address] [place] [address] PCP - General 02/21/10 04/16/11 documented as of this encounter
--- OUTSIDE RECORDS SUMMARY | 2024-06-28 13:57 | XMS_ITS | Encounter Summary ---
Author Organization [facility] Address [address] [place] [address] Care Team Providers Care Atmospheric Sciences Professor Name Role Phone Yan Demarco MD Primary Care Provider [phone] Corin Skinner MD Primary Care Provider Akil Serrano MD Primary Care Provider [phone] Encounter Details Date Type Department Care Team (Late st Contact Info) Description 11/27/2004 Before PRISM Converted Visit (Maple) [facility] - Maple conversion [address] [place], [place] [address] Raleigh Angelo MD [address] [phone] Social History Tobacco Use Types Packs/Day Years Used Date Smoking Tobacco: Never Assessed Sex and Gender Information Value Date Recorded Sex Assigned at Not on file Legal Sex Male 18:35 EST Gender Identity Not on file Sexual Orientation Not on file documented as of this encounter Progress Notes * Raleigh Angelo MD - 02/15/2011 1154 EDT INPATIENT REHABILITATION [...] - RALEIGH ANGELO MD / Voice ID: [id number] Doc ID: [id number] trolytes, and renal function. - ROCKY ANGELO MD / Voice ID: [id number] Doc ID: [id number] documented in this encounter Plan of Treatment Upcoming Encounters Date Type Department Care Team (Late st Contact Info) Description 07/06/2024 13:40 EST Office Visit [facility] Endocrinology - [address] [phone] Wilder Zaidi, DO [address] [place] [phone] 09/09/2024 10:20 EST Office Visit [facility] Endocrinology [address] [phone] Day Littlejohn MD PhD [address] [place] [address] documented as of this encounter Visit Diagnoses Not on filedocumented in this encounter Care Teams Atmospheric Sciences Professor Relationship Specialty Start Date End Date Yan Demarco MD [address] [place] [phone] PCP - General 08/22/09 02/20/10 Corin Skinner MD [address] [place] [phone] PCP - General 10/24/08 08/21/09 Akil Serrano MD 74 [facility] [address] [place] [address] PCP - General 02/21/10 04/16/11 documented as of this encounter
--- OUTSIDE RECORDS SUMMARY | 2024-06-28 14:00 | XMS_ITS | Encounter Summary ---
Author Organization [facility] Address [address] [place] [address] Care Team Providers Care Pneumatic Hoist Operator Name Role Phone Yan Demarco MD Primary Care Provider Corin Skinner MD Primary Care Provider [phone] Akil Serrano MD Primary Care Provider [phone] Encounter Details Date Type Department Care Team (Late st Contact Info) Description 09/21/2004 Before PRISM Converted Visit (Maple) [facility] - Maple conversion [address] [place] [address] Ade Malloy MD [address] [place] [phone] Social History Tobacco Use Types Packs/Day Years Used Date Smoking Tobacco: Never Assessed Sex and Gender Information Value Date Recorded Sex Assigned at Not on file Legal Sex Male 18:35 EST Gender Identity Not on file Sexual Orientation Not on file documented as of this encounter Progress Notes * Ricki, Conv Character Actress - 02/13/2011 1150 EDT INITIAL EVALUATION September 20, 2004 Kris Drew MD [address] [place] [address] [place] [address] Drew, I had the pleasure [...] long discussion with the mother and the director social service about the risks of surgery including , paralysis,stroke, blindness, cerebral spinal fluid leak, pituitary and hypothalamic damage, bleeding requiring blood transfusion, need for assisted hormone replacement, seizures. They understand this and would like to proceed;knowing that the biggest threat here is that if it is left untreated it certainly will threaten hisgood eye. I will set him up for surgery on the of this month. I would like him to see our pediatric it applications analyst Dr. Edwards, and I have ordered a [...] MD on 09/24/2004 09:42:19. ADE MALLOY MD Chopper Gun Operator [facility] Division of Neurological Surgery - ADE MALLOY MD - an Voice ID: [id number] Document ID: [id number] CC: KRIS MCKENNA MD documented in this encounter Plan of Treatment Upcoming Encounters Date Type Department Care Team (Late st Contact Info) Description 07/06/2024 13:40 EST Office Visit [facility] Endocrinology - [address] [address] Wilder Zaidi, [address] [place] [address] 09/09/2024 10:20 EST Office Visit [address] [address] Day Littlejohn MD PhD [address] [place] [phone] documented as of this encounter Visit Diagnoses Not on filedocumented in this encounter Care Teams Pneumatic Hoist Operator Relationship Specialty Start Date End Date Yan Demarco MD [address] [place] [phone] PCP - General 08/22/09 02/20/10 Corin Skinner MD [address] [place] [phone] PCP - General 10/24/08 08/21/09 Akil Serrano MD 74 [facility] [place] [address] PCP - General 02/21/10 04/16/11 documented as of this encounter
--- OUTSIDE RECORDS SUMMARY | 2024-06-28 14:00 | XMS_ITS | Encounter Summary ---
Author Organization [facility] Address [address] [place] [address] Care Team Providers Care Private Branch Exchange Installer Name Role Phone Yan Demarco MD Primary Care Provider Corin Skinner MD Primary Care Provider Akil Serrano MD Primary Care Provider [phone] Encounter Details Date Type Department Care Team (Late st Contact Info) Description 11/15/2004 Before PRISM Converted Visit (Maple) [facility] - Maple conversion [address] [place] [address] Kylie Larson MD [address] [place] [address] [address] [place], [place] [phone] Social History Tobacco Use Types Packs/Day Years [...] last couple of days. Nursing over at [facility] will review his nursing care needs to see if they can provide the appropriate level of care for him. We will continue to monitor him over the next couple of days to assess for appropriate transition to the [facility] on Friday. d - 11/15/2004 16:16:25 - KYLIE LARSON MD t - 11/15/2004 16:50:13 - Voice ID - [id number] Document ID - [id number] cc: ANCELMO DIAZ MD, REFERRING PHYSICIAN This document has been electronically signed by KYLIE LARSON MD on 11/16/2004 15:48:37. l3 documented in this encounter Plan of Treatment Upcoming Encounters Date Type Department Care Team (Late st Contact Info) Description 07/06/2024 13:40 EST Office Visit [facility] Endocrinology - [facility] [address] [place] [address] Wilder Zaidi, DO 62 [facility] [address] [place] [address] 09/09/2024 10:20 EST Office Visit [facility] Endocrinology - [facility] [address] [place] [address] Day Littlejohn MD PhD 62 [facility] [address] [place] [address] documented as of this encounter Visit Diagnoses Not on filedocumented in this encounter Care Teams Private Branch Exchange Installer Relationship Specialty Start Date End Date Yan Demarco MD [address] [place] [address] PCP - General 08/22/09 02/20/10 Corin Skinner MD [address] [place] [phone] PCP - General 10/24/08 08/21/09 Akil Serrano MD [address] [address] PCP - General 02/21/10 04/16/11 documented as of this encounter
--- OUTSIDE RECORDS SUMMARY | 2024-06-28 14:00 | XMS_ITS | Encounter Summary ---
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 He was transferred to [address] on November 07, 2004. HOSPITAL COURSE: [...] of DDAVP (desmopressin) q.8h. at 0600, 1400 [id number] via his G-tube. His sodiums originally were [...] Signed by Jodi Parr MD 02/20/2005 07:31 raj Gonzalez, [facility], [facility]paresh Parr MD Dictated by: Marvin Gonzalez MD Jodi Parr MD - Marvin Gonzalez MD - chelle Job ID: [id number] Document ID: [id number] Re-created from [employer] 01/24/2005 cc: MD Too [...] immediate postoperative course. He was transferred to [address] [facility] on November 07, 2004. HOSPITAL COURSE: . [...] of DDAVP (desmopressin) q.8h. at 0600, 1400 [id number] via his G-tube. His sodiums originally were [...] Signed by Jodi Parr MD 02/20/2005 07:31 Cassie Gonzalez, Dottie Teresa MD Dictated by: Marvin Gonzalez MD Jodi Parr MD - Marvin Gonzalez MD - chelle Job ID: [id number] Document ID: [id number] Re-created in [employer] 01/29/2005 cc: MD Marvin Ross MD Christa M Zehle, MD Paul James Zimakas, MD documented in this encounter Discharge Disposition Disposition Code Departure Means Destination [facility] documented in this encounter Plan of Treatment Upcoming Encounters Date Type Department Care Team (Late st Contact Info) Description 07/06/2024 13:40 EST Office Visit [facility] End[facility]ology - [facility] [address] [place] [address] Wilder Zaidi, [address] [facility] [address] [place] [address] 09/09/2024 10:20 EST Office Visit [facility] - [facility] [address] [place] [address] Day Littlejohn MD PhD [address] [facility] [address] [place] [address] documented as of this encounter [...] EDT Jodi Parr MD CHEMISTRY & BLOOD GAS ORDERABLE S Final Result Performing Organization Address [facility] de Phone Number [facility] [address] [place] [address] * SODIUM (11/19/2004 20:05 EDT) Sodium 145 136 - 145 mEq/L [facility] 11/19/2004 20:0 5 EDT 11/19/2004 20:29 EDT Jodi Parr MD CHEMISTRY & BLOOD GAS ORDERABLE S Final Result Performing Organization Address [facility] de Phone Number [facility] [address] [place] [address] * (ABNORMAL) SODIUM (11/19/2004 8:00 EDT) Sodium 147(H) 136 - 145 mEq/L [facility] Comment:Heparinized plasma. 11/19/2004 8:00 EDT 11/19/2004 8:16 EDT Jodi Parr MD CHEMISTRY & BLOOD GAS ORDERABLE S Final Result Performing Organization Address [facility] de Phone Number [facility] [address] [place] [address] * SODIUM (11/18/2004 20:00 EDT) Sodium 144 136 - 145 mEq/L [facility] 11/18/2004 20:0 0 EDT 11/18/2004 20:41 EDT us Jodi Parr MD CHEMISTRY & BLOOD GAS ORDERABLE S Final Result Performing Organization Address [facility] de Phone Number [facility] [address] [place] [address] * (ABNORMAL) SODIUM (11/18/2004 14:00 EDT) Sodium 147(H) 136 - 145 mEq/L [facility] 11/18/2004 14:0 0 EDT 11/18/2004 14:38 EDT us Jodi Parr MD CHEMISTRY & BLOOD GAS ORDERABLE S Final Result Performing Organization Address [facility] de Phone Number [facility] [address] [place] [address] * (ABNORMAL) SODIUM (11/18/2004 8:00 EDT) Sodium 146(H) 136 - 145 mEq/L [facility] 11/18/2004 8:00 EDT 11/18/2004 8:24 EDT us Jodi Parr MD CHEMISTRY & BLOOD GAS ORDERABLE S Final Result Performing Organization Address [facility] de Phone Number [facility] [address] [place] [address] * SODIUM (11/17/2004 20:15 EDT) Sodium 141 136 - 145 mEq/L [facility] 11/17/2004 20:1 5 EDT 11/17/2004 20:46 EDT us Jodi Parr MD CHEMISTRY & BLOOD GAS ORDERABLE S Final Result Performing Organization Address [facility] Co de Phone Number [facility] [address] [place] [address] * SODIUM (11/17/2004 12:00 EDT) Sodium 142 136 - 145 mEq/L [facility] Comment:Heparinized plasma. 11/17/2004 12:0 0 EDT 11/17/2004 12:37 EDT Jodi Parr MD CHEMISTRY & BLOOD GAS ORDERABLE S Final Result Performing Organization Address [facility] de Phone Number [facility] [address] [place] [address] * SODIUM (11/17/2004 4:00 EDT) Sodium 140 136 - 145 mEq/L [facility] 11/17/2004 4:00 EDT 11/17/2004 4:01 EDT us Jodi Parr MD CHEMISTRY & BLOOD GAS ORDERABLE S Final Result Performing Organization Address [facility] Phone Number [facility] [address] [place] [address] * SODIUM (11/16/2004 19:45 EDT) Sodium 141 136 - 145 mEq/L [facility] 11/16/2004 19:4 5 EDT 11/16/2004 20:20 EDT Jodi Parr MD CHEMISTRY & BLOOD GAS ORDERABLE S Final Result Performing Organization Address [facility] de Phone Number [facility] [address] [place] [address] * SODIUM (11/16/2004 11:30 EDT) Sodium 142 136 - 145 mEq/L [facility] 11/16/2004 11:3 0 EDT 11/16/2004 12:18 EDT Jodi Parr MD CHEMISTRY & BLOOD GAS ORDERABLE S Final Result Performing Organization Address [facility]/ZIP Co de Phone Number [facility] [address] [place] [address] * SODIUM (11/16/2004 3:45 EDT) Sodium 136 136 - 145 mEq/L [facility] 11/16/2004 3:45 EDT 11/16/2004 3:52 EDT us Jodi Parr MD CHEMISTRY & BLOOD GAS ORDERABLE S Final Result Performing Organization Address City/[facility] Co de Phone Number [facility] [address] [place] [address] * SODIUM (11/15/2004 19:45 EDT) Sodium 139 136 - 145 mEq/L [facility] 11/15/2004 19:4 5 EDT 11/15/2004 20:00 EDT us Jodi Parr MD CHEMISTRY & BLOOD GAS ORDERABLE S Final Result Performing Organization Address [facility] de Phone Number [facility] [address] [place] [address] * SODIUM (11/15/2004 12:00 EDT) Sodium 141 136 - 145 mEq/L [facility] 11/15/2004 12:0 0 EDT 11/15/2004 12:42 EDT us Jodi Parr MD CHEMISTRY & BLOOD GAS ORDERABLE S Final Result Performing Organization Address [facility] Co de Phone Number [facility] [address] [place] [address] * SODIUM (11/15/2004 4:45 EDT) Sodium 141 136 - 145 mEq/L [facility] 11/15/2004 4:45 EDT 11/15/2004 5:07 EDT Jodi Parr MD CHEMISTRY & BLOOD GAS ORDERABLE S Final Result [facility] [address] [place] [address] * SODIUM (11/14/2004 20:00 EDT) Sodium 144 136 - 145 mEq/L [facility] 11/14/2004 20:0 0 EDT 11/14/2004 20:20 EDT us Jodi Parr MD CHEMISTRY & BLOOD GAS ORDERABLE S Final Result Performing Organization Address [facility]/ZIP Co de Phone Number [facility] [address] [place] [address] * SODIUM (11/14/2004 11:35 EDT) Sodium 141 136 - 145 mEq/L [facility] 11/14/2004 11:3 5 EDT 11/14/2004 12:32 EDT us Jodi Parr MD CHEMISTRY & BLOOD GAS ORDERABLE S Final Result Performing Organization Address [facility] de Phone Number [facility] [address] [place] [address] * SODIUM (11/14/2004 4:00 EDT) Sodium 140 136 - 145 mEq/L [facility] Comment:Heparinized plasma. 11/14/2004 4:00 EDT 11/14/2004 4:32 EDT us Jodi Parr MD CHEMISTRY & BLOOD GAS ORDERABLE S Final Result Performing Organization Address [facility] Co de Phone Number [facility] [address] [place] [address] * SODIUM (11/13/2004 20:00 EDT) Sodium 142 136 - 145 mEq/L [facility] 11/13/2004 20:0 0 EDT 11/13/2004 20:59 EDT us Jodi Parr MD CHEMISTRY & BLOOD GAS ORDERABLE S Final Result [facility] [address] [place] [address] * SODIUM (11/13/2004 20:00 EDT) Sodium 136 - 145 mEq/L [facility] 11/13/2004 20:0 0 EDT 11/20/2004 12:48 EDT us Jodi Parr MD CHEMISTRY & BLOOD GAS ORDERABLE S Final Result [facility] [address] [place] [address] * SODIUM (11/13/2004 11:55 EDT) Sodium 141 136 - 145 mEq/L [facility] 11/13/2004 11:5 5 EDT 11/13/2004 12:31 EDT us Jodi Parr MD CHEMISTRY & BLOOD GAS ORDERABLE S Final Result Performing Organization Address City/[facility]/ZIP Co de Phone Number [facility] [address] [place] [address] * SODIUM (11/13/2004 4:02 EDT) Sodium 141 136 - 145 mEq/L [facility] 11/13/2004 4:02 EDT 11/13/2004 4:03 EDT us Jodi Parr MD CHEMISTRY & BLOOD GAS ORDERABLE S Final Result [facility] [address] [place] [address] * SODIUM (11/12/2004 19:50 EDT) Sodium 140 136 - 145 mEq/L [facility] 11/12/2004 19:5 0 EDT 11/12/2004 21:02 EDT us Jodi Parr MD CHEMISTRY & BLOOD GAS ORDERABLE S Final Result [facility] [address] [place] [address] * PHOSPHORUS (11/12/2004 11:55 EDT) Phosphorus 4.9 2.9 - 5.4 mg/dl [facility] Comment:Heparinized plasma. 11/12/2004 11:5 5 EDT 11/12/2004 12:09 EDT us Jodi Parr MD CHEMISTRY & BLOOD GAS ORDERABLE S Final Result Performing Organization Address [facility] de Phone Number [facility] [address] [place] [address] * PREALBUMIN (11/12/2004 11:55 EDT) Prealbumin 38 mg/dl [facility] 11/12/2004 11:5 5 EDT 11/12/2004 12:09 EDT us Jodi Parr MD CHEMISTRY & BLOOD GAS ORDERABLE S Final Result Performing Organization Address [facility] de Phone Number [facility] [address] [place] [address] * SODIUM (11/12/2004 11:55 EDT) Sodium 138 136 - 145 mEq/L [facility] Comment:Heparinized plasma. 11/12/2004 11:5 5 EDT 11/12/2004 12:09 EDT us Jodi Parr MD CHEMISTRY & BLOOD GAS ORDERABLE S Final Result Performing Organization Address [facility] Co de Phone Number [facility] [address] [place] [address] * MAGNESIUM (11/12/2004 11:55 EDT) Magnesium 2.1 1.7 - 2.8 mg/dl [facility] Comment:Heparinized plasma. 11/12/2004 11:5 5 EDT 11/12/2004 12:09 EDT Jodi Parr MD CHEMISTRY & BLOOD GAS ORDERABLE S Final Result Performing Organization Address [facility] Co de Phone Number [facility] [address] [place] [address] * PHOSPHORUS (11/12/2004 4:00 EDT) Phosphorus 4.9 2.9 - 5.4 mg/dl [facility] 11/12/2004 4:00 EDT 11/12/2004 4:07 EDT us Jodi Parr MD CHEMISTRY & BLOOD GAS ORDERABLE S Final Result Performing Organization Address [facility] de Phone Number [facility] [address] [place] [address] * SODIUM (11/12/2004 4:00 EDT) Sodium 136 136 - 145 mEq/L [facility] 11/12/2004 4:00 EDT 11/12/2004 4:07 EDT Jodi Parr MD CHEMISTRY & BLOOD GAS ORDERABLE S Final Result Performing Organization Address [facility] de Phone Number [facility] [address] [place] [address] * MAGNESIUM (11/12/2004 4:00 EDT) Magnesium 2.0 1.7 - 2.8 mg/dl [facility] 11/12/2004 4:00 EDT 11/12/2004 4:07 EDT us Jodi Parr MD CHEMISTRY & BLOOD GAS ORDERABLE S Final Result Performing Organization Address [facility] Co de Phone Number [facility] [address] [place] [address] * T4 FREE (11/12/2004 4:00 EDT) Free T4 0.8 0.8 - 1.8 ng/dl [facility] 11/12/2004 4:00 EDT 11/12/2004 4:07 EDT us Jodi Parr MD CHEMISTRY & BLOOD GAS ORDERABLE S Final Result Performing Organization Address [facility] de Phone Number [facility] [address] [place] [address] * CALCIUM (11/12/2004 4:00 EDT) Calcium 9.3 8.5 - 10.5 mg/dl [facility] Calculated Calcium 9.6 8.5 - 10.5 mg/dl [facility] 11/12/2004 4:00 EDT 11/12/2004 4:07 EDT us Jodi Parr MD CHEMISTRY & BLOOD GAS ORDERABLE S Final Result Performing Organization Address [facility] de Phone Number [facility] [address] [place] [address] * ALBUMIN (11/12/2004 4:00 EDT) Albumin 4.1 3.0 - 5.5 g/dl [facility] 11/12/2004 4:00 EDT 11/12/2004 4:07 EDT us Jodi Parr MD CHEMISTRY & BLOOD GAS ORDERABLE S Final Result Performing Organization Address [facility] de Phone Number [facility] [address] [place] [address] * SODIUM (11/11/2004 20:08 EDT) Sodium 137 136 - 145 mEq/L [facility] 11/11/2004 20:0 8 EDT 11/11/2004 20:13 EDT Jodi Parr MD CHEMISTRY & BLOOD GAS ORDERABLE S Final Result [facility] [address] [place] [address] * SODIUM (11/11/2004 12:00 EDT) Sodium 137 136 - 145 mEq/L [facility] 11/11/2004 12:0 0 EDT 11/11/2004 12:28 EDT us Jodi Parr MD CHEMISTRY & BLOOD GAS ORDERABLE S Final Result Performing Organization Address [facility]/ZIP Co de Phone Number [facility] [address] [place] [address] * (ABNORMAL) SODIUM (11/11/2004 4:00 EDT) Sodium 132(L) 136 - 145 mEq/L [facility] 11/11/2004 4:00 EDT 11/11/2004 4:08 EDT us Jodi Parr MD CHEMISTRY & BLOOD GAS ORDERABLE S Final Result Performing Organization Address [facility] Co de Phone Number [facility] [address] [place] [address] * (ABNORMAL) SODIUM (11/10/2004 20:45 EDT) Sodium 132(L) 136 - 145 mEq/L [facility] 11/10/2004 20:4 5 EDT 11/10/2004 20:54 EDT us Jodi Parr MD CHEMISTRY & BLOOD GAS ORDERABLE S Final Result Performing Organization Address City/[facility] Co de Phone Number [facility] [address] [place] [address] * SODIUM (11/10/2004 11:55 EDT) Sodium 137 136 - 145 mEq/L [facility] 11/10/2004 11:5 5 EDT 11/10/2004 12:53 EDT us Jodi Parr MD CHEMISTRY & BLOOD GAS ORDERABLE S Final Result [facility] [address] [place] [address] * (ABNORMAL) SODIUM (11/10/2004 3:45 EDT) Sodium 132(L) 136 - 145 mEq/L [facility] 11/10/2004 3:45 EDT 11/10/2004 4:11 EDT us Jodi Parr MD CHEMISTRY & BLOOD GAS ORDERABLE S Final Result Performing Organization Address [facility] Co de Phone Number [facility] [address] [place] [address] * SODIUM (11/09/2004 20:00 EDT) Sodium 136 136 - 145 mEq/L [facility] Comment:Heparinized plasma. 11/09/2004 20:0 0 EDT 11/09/2004 20:25 EDT us Hilton Álvarez MD CHEMISTRY & BLOOD GAS HERMES HANNON Final Result Performing Organization Address [facility] de Phone Number [facility] [address] [place] [address] * SODIUM (11/09/2004 13:20 EDT) Sodium 136 136 - 145 mEq/L [facility] Comment:Heparinized plasma. 11/09/2004 13:2 0 EDT 11/09/2004 13:39 EDT us Jodi Parr MD CHEMISTRY & BLOOD GAS ORDERABLE S Final Result Performing Organization Address [facility] Co de Phone Number [facility] [address] [place] [address] * (ABNORMAL) SODIUM (11/09/2004 4:20 EDT) Sodium 132(L) 136 - 145 mEq/L [facility] Comment:Heparinized plasma. 11/09/2004 4:20 EDT 11/09/2004 5:00 EDT us Hilton Álvarez MD CHEMISTRY & BLOOD GAS ORDE RABLES Final Result Performing Organization Address [facility] de Phone Number [facility] [address] [place] [address] * (ABNORMAL) SODIUM (11/08/2004 19:55 EDT) Sodium 133(L) 136 - 145 mEq/L [facility] 11/08/2004 19:5 5 EDT 11/08/2004 20:26 EDT us Hilton Álvarez MD CHEMISTRY & BLOOD GAS ORDE RABLES Final Result Performing Organization Address [facility] de Phone Number [facility] [address] [place] [address] * (ABNORMAL) SODIUM (11/08/2004 17:00 EDT) Sodium 133(L) 136 - 145 mEq/L [facility] 11/08/2004 17:0 0 EDT 11/08/2004 17:23 EDT Jodi Parr MD CHEMISTRY & BLOOD GAS ORDERABLE S Final Result Performing Organization Address [facility] de Phone Number [facility] [address] [place] [address] * (ABNORMAL) SODIUM (11/08/2004 12:15 EDT) Sodium 131(L) 136 - 145 mEq/L [facility] 11/08/2004 12:1 5 EDT 11/08/2004 13:58 EDT Hilton Álvarez MD CHEMISTRY & BLOOD GAS ORDE RABLES Final Result Performing Organization Address [facility] Co de Phone Number [facility] [address] [place] [address] * (ABNORMAL) SODIUM (11/08/2004 4:00 EDT) Sodium 135(L) 136 - 145 mEq/L [facility] 11/08/2004 4:00 EDT 11/08/2004 5:19 EDT Hilton Álvarez MD CHEMISTRY & BLOOD GAS ORDE RABLES Final Result Performing Organization Address [facility] Co de Phone Number [facility] [address] [place] [address] * (ABNORMAL) SODIUM (11/07/2004 20:29 EDT) Sodium 135(L) 136 - 145 mEq/L [facility] Comment:Heparinized plasma. 11/07/2004 20:2 9 EDT 11/07/2004 20:30 EDT Hilton Álvarez MD CHEMISTRY & BLOOD GAS ORDE RABLES Final Result Performing Organization Address [facility] Co de Phone Number [facility] [address] [place] [address] * (ABNORMAL) SODIUM (11/07/2004 12:24 EDT) Sodium 133(L) 136 - 145 mEq/L [facility] Comment:Heparinized plasma. 11/07/2004 12:2 4 EDT 11/07/2004 12:24 EDT Hilton Álvarez MD CHEMISTRY & BLOOD GAS ORDE RABLES Final Result Performing Organization Address City/[facility] Co de Phone Number [facility] [address] [place] [address] * (ABNORMAL) SODIUM (11/07/2004 6:25 EDT) Sodium 133(L) 136 - 145 mEq/L [facility] 11/07/2004 6:25 EDT 11/07/2004 6:26 EDT us Hilton Álvarez MD CHEMISTRY & BLOOD GAS ORDE RABLES Final Result Performing Organization Address [facility]/ZIP Co de Phone Number [facility] [address] [place] [address] * SODIUM (11/06/2004 22:00 EDT) Sodium 136 136 - 145 mEq/L [facility] 11/06/2004 22:0 0 EDT 11/06/2004 22:07 EDT us Hilton Álvarez MD CHEMISTRY & BLOOD GAS ORDE RABLES Final Result Performing Organization Address [facility] de Phone Number [facility] [address] [place] [address] * SODIUM (11/06/2004 13:58 EDT) Sodium 138 136 - 145 mEq/L [facility] 11/06/2004 13:5 8 EDT 11/06/2004 13:58 EDT us Hilton Álvarez MD CHEMISTRY & BLOOD GAS ORDE RABLES Final Result Performing Organization Address [facility] de Phone Number [facility] [address] [place] [address] * ELECTROLYTES (11/06/2004 9:56 EDT) Sodium 137 136 - 145 mEq/L [facility] Potassium 4.3 3.6 - 5.2 mEq/L [facility] Chloride 97 96 - 110 mEq/L [facility] CO2 30 24 - 32 mEq/L [facility] 11/06/2004 9:56 EDT 11/06/2004 9:56 EDT us Hilton Álvarez MD CHEMISTRY & BLOOD GAS ORDE RABLES Final Result Performing Organization Address City/[facility]/ZIP Co de Phone Number [facility] [address] [place] [address] * ELECTROLYTES (11/06/2004 3:22 EDT) Sodium 136 136 - 145 mEq/L [facility] Potassium 4.2 3.6 - 5.2 mEq/L [facility] Chloride 100 96 - 110 mEq/L [facility] CO2 30 24 - 32 mEq/L [facility] 11/06/2004 3:22 EDT 11/06/2004 3:22 EDT Hilton Álvarez MD CHEMISTRY & BLOOD GAS ORDE RABLES Final Result Performing Organization Address [facility] Co de Phone Number [facility] [address] [place] [address] * ELECTROLYTES (11/05/2004 20:50 EDT) Sodium 137 136 - 145 mEq/L [facility] Potassium 4.2 3.6 - 5.2 mEq/L [facility] Chloride 101 96 - 110 mEq/L [facility] CO2 30 24 - 32 mEq/L [facility] 11/05/2004 20:5 0 EDT 11/05/2004 20:50 EDT Hilton Álvarez MD CHEMISTRY & BLOOD GAS ORDE RABLES Final Result Performing Organization Address [facility] de Phone Number [facility] [address] [place] [address] * CT HEAD W/WO CONTRAST (11/05/2004 19:02 [...] Stable chronic pansinusitis. /jv Hilton Álvarez MD IMG CT ORDERABLES Final Re sult * ELECTROLYTES (11/05/2004 12:30 EDT) [facility] Sodium 141 136 - 145 mEq/L [facility] Comment:Heparinized plasma. Potassium 4.0 3.6 - 5.2 mEq/L [facility] Comment:Heparinized plasma. Chloride 105 96 - 110 mEq/L [facility] Comment:Heparinized plasma. CO2 28 24 - 32 mEq/L [facility] Comment:Heparinized plasma. 11/05/2004 12:3 0 EDT 11/05/2004 12:52 EDT Hilton Álvarez MD CHEMISTRY & BLOOD GAS ORDE [facility] Final Result [facility] [address] [place] [address] * SODIUM (11/05/2004 4:34 EDT) Sodium 136 - 145 mEq/L [facility] 11/05/2004 4:34 EDT 11/05/2004 4:34 EDT Hilton Álvarez MD CHEMISTRY & BLOOD GAS ORDE RABLES Final Result Performing Organization Address [facility] Co de Phone Number [facility] [address] [place] [address] * ELECTROLYTES (11/05/2004 4:34 EDT) Sodium 142 136 - 145 mEq/L [facility] Potassium 4.0 3.6 - 5.2 mEq/L [facility] Chloride 106 96 - 110 mEq/L [facility] CO2 29 24 - 32 mEq/L [facility] 11/05/2004 4:34 EDT 11/05/2004 4:34 EDT Hilton Álvarez MD CHEMISTRY & BLOOD GAS ORDE RABLES Final Result Performing Organization Address [facility] Co de Phone Number [facility] [address] [place] [address] * (ABNORMAL) T4 FREE (11/05/2004 4:34 EDT) Free T4 0.6(L) 0.8 - 1.8 ng/dl [facility] 11/05/2004 4:34 EDT 11/05/2004 4:34 EDT Hilton Álvarez MD CHEMISTRY & BLOOD GAS ORDE RABLES Final Result Performing Organization Address [facility] Co de Phone Number [facility] [address] [place] [address] * (ABNORMAL) ELECTROLYTES (11/04/2004 22:06 EDT) Sodium 143 136 - 145 mEq/L [facility] Potassium 3.5(L) 3.6 - 5.2 mEq/L [facility] Chloride 106 96 - 110 mEq/L [facility] CO2 28 24 - 32 mEq/L [facility] 11/04/2004 22:0 6 EDT 11/04/2004 22:06 EDT Hilton Álvarez MD CHEMISTRY & BLOOD GAS ORDE RABLES Final Result Performing Organization Address [facility] de Phone Number [facility] [address] [place] [address] * ELECTROLYTES (11/04/2004 14:25 EDT) Sodium 143 136 - 145 mEq/L [facility] Potassium 4.2 3.6 - 5.2 mEq/L [facility] Chloride 107 96 - 110 mEq/L [facility] CO2 28 24 - 32 mEq/L [facility] 11/04/2004 14:2 5 EDT 11/04/2004 14:26 EDT Hilton Álvarez MD CHEMISTRY & BLOOD GAS ORDE RABLES Final Result Performing Organization Address [facility] de Phone Number [facility] [address] [place] [address] * SODIUM (11/04/2004 8:25 EDT) Sodium 142 136 - 145 mEq/L [facility] 11/04/2004 8:25 EDT 11/04/2004 8:38 EDT Hilton Álvarez MD CHEMISTRY & BLOOD GAS ORDE RABLES Final Result Performing Organization Address [facility] de Phone Number [facility] [address] [place] [address] * ELECTROLYTES (11/04/2004 4:15 EDT) Sodium 143 136 - 145 mEq/L [facility] Potassium 4.2 3.6 - 5.2 mEq/L [facility] Chloride 104 96 - 110 mEq/L [facility] CO2 28 24 - 32 mEq/L [facility] 11/04/2004 4:15 EDT 11/04/2004 4:15 EDT us Hilton Álvarez MD CHEMISTRY & BLOOD GAS ORDE RABLES Final Result Performing Organization Address [facility] de Phone Number [facility] [address] [place] [address] * SODIUM (11/04/2004 0:31 EDT) Sodium 144 136 - 145 mEq/L [facility] 11/04/2004 0:31 EDT 11/04/2004 0:31 EDT us Hilton Álvarez MD CHEMISTRY & BLOOD GAS ORDE RABLES Final Result Performing Organization Address [facility] de Phone Number [facility] [address] [place] [address] * ELECTROLYTES (11/03/2004 20:16 EDT) Sodium 144 136 - 145 mEq/L [facility] Potassium 3.8 3.6 - 5.2 mEq/L [facility] Chloride 104 96 - 110 mEq/L [facility] CO2 29 24 - 32 mEq/L [facility] 11/03/2004 20:1 6 EDT 11/03/2004 20:16 EDT Hilton Álvarez MD CHEMISTRY & BLOOD GAS ORDE RABLES Final Result Performing Organization Address [facility] de Phone Number [facility] [address] [place] [address] * SODIUM (11/03/2004 16:15 EDT) Sodium 142 136 - 145 mEq/L [facility] 11/03/2004 16:1 5 EDT 11/03/2004 16:30 EDT Hilton Álvarez MD CHEMISTRY & BLOOD GAS ORDE RABLES Final Result Performing Organization Address [facility]/ZIP Co de Phone Number [facility] [address] [place] [address] * ELECTROLYTES (11/03/2004 12:21 EDT) Sodium 144 136 - 145 mEq/L [facility] Potassium 3.9 3.6 - 5.2 mEq/L [facility] Chloride 106 96 - 110 mEq/L [facility] CO2 28 24 - 32 mEq/L [facility] 11/03/2004 12:2 1 EDT 11/03/2004 12:21 EDT Hilton Álvarez MD CHEMISTRY & BLOOD GAS ORDE RABLES Final Result Performing Organization Address [facility] de Phone Number [facility] [address] [place] [address] * SODIUM (11/03/2004 9:30 EDT) Sodium 145 136 - 145 mEq/L [facility] Comment:Heparinized plasma. 11/03/2004 9:30 EDT 11/03/2004 9:32 EDT Hilton Álvarez MD CHEMISTRY & BLOOD GAS ORDE RABLES Final Result Performing Organization Address [facility] Phone Number [facility] [address] [place] [address] * ELECTROLYTES (11/03/2004 3:00 EDT) Sodium 142 136 - 145 mEq/L [facility] Comment:Heparinized plasma. Potassium 3.9 3.6 - 5.2 mEq/L [facility] Comment:Heparinized plasma. Chloride 105 96 - 110 mEq/L [facility] Comment:Heparinized plasma. CO2 30 24 - 32 mEq/L [facility] Comment:Heparinized plasma. 11/03/2004 3:00 EDT 11/03/2004 4:13 EDT Hilton Álvarez MD CHEMISTRY & BLOOD GAS ORDE RABLES Final Result Performing Organization Address [facility] de Phone Number [facility] [address] [place] [address] * SODIUM (11/03/2004 0:14 EDT) Sodium 144 136 - 145 mEq/L [facility] Comment:Heparinized plasma. 11/03/2004 0:14 EDT 11/03/2004 0:14 EDT Hilton Álvarez MD CHEMISTRY & BLOOD GAS ORDE RABREBECA Final Result Performing Organization Address [facility] de Phone Number [facility] [address] [place] [address] * (ABNORMAL) ELECTROLYTES (11/02/2004 20:02 EDT) Sodium 146(H) 136 - 145 mEq/L [facility] Potassium 4.1 3.6 - 5.2 mEq/L [facility] Chloride 107 96 - 110 mEq/L [facility] CO2 30 24 - 32 mEq/L [facility] 11/02/2004 20:0 2 EDT 11/02/2004 20:02 EDT Hilton Álvarez MD CHEMISTRY & BLOOD GAS ORDE RABREBECA Final Result Performing Organization Address [facility] de Phone Number [facility] [address] [place] [address] * SODIUM (11/02/2004 16:34 EDT) Sodium 145 136 - 145 mEq/L [facility] 11/02/2004 16:3 4 EDT 11/02/2004 16:34 EDT Hilton Álvarez MD CHEMISTRY & BLOOD GAS ORDE RABREBECA Final Result Performing Organization Address [facility] Co de Phone Number [facility] [address] [place] [address] * (ABNORMAL) ELECTROLYTES (11/02/2004 12:32 EDT) Sodium 148(H) 136 - 145 mEq/L [facility] Comment:Heparinized plasma. Potassium 4.3 3.6 - 5.2 mEq/L [facility] Comment:Heparinized plasma. Chloride 108 96 - 110 mEq/L [facility] Comment:Heparinized plasma. CO2 30 24 - 32 mEq/L [facility] Comment:Heparinized plasma. 11/02/2004 12:3 2 EDT 11/02/2004 12:32 EDT Hilton Álvarez MD CHEMISTRY & BLOOD GAS ORDE RABLES Final Result Performing Organization Address [facility] Co de Phone Number [facility] [address] [place] [address] * SODIUM (11/02/2004 8:39 EDT) Sodium 141 136 - 145 mEq/L [facility] Comment:Heparinized plasma. 11/02/2004 8:39 EDT 11/02/2004 8:39 EDT Hilton Álvarez MD CHEMISTRY & BLOOD GAS ORDE RABLES Final Result Performing Organization Address [facility] de Phone Number [facility] [address] [place] [address] * (ABNORMAL) HEMAGRAM (11/02/2004 8:39 EDT) WBC 7.69 4.5 - 13.0 K/cmm [facility] RBC 3.14(L) 4.50 - 5.30 M/cmm [facility] Hemoglobin 9.0(L) 13.0 - 16.0 gm/dl [facility] HCT 26.4(L) 37.0 - 49.0 % [facility] MCV 84 78 - 98 fl [facility] MCH 28.7 pg [facility] MCHC 34.2 gm/dl [facility] PLT 275 156 - 312 K/cmm [facility] RDW-CV 16.7 % [facility] 11/02/2004 8:39 EDT 11/02/2004 8:39 EDT us Hilton Álvarez MD HEMATOLOGY & PF4 ORDERABLE S Final Result [facility] [address] [place] [address] * BACTERIAL CULTURE, BLOOD (11/02/2004 5:45 EDT) Specimen Description Blood PICC Line [facility] Result No growth [facility] Report Status Final [id number] [facility] 11/02/2004 5:45 EDT 11/02/2004 5:45 EDT Hilton Álvarez MD MICROBIOLOGY - GENERAL ORD ERABLES Final Result Performing Organization Address [facility] Co de Phone Number [facility] [address] [place] [address] * BACTERIAL CULTURE, URINE (11/02/2004 5:43 EDT) Specimen Description Urine [facility] Result Greater than 100,000 CFU/ml STAPHYLOCOCCU S COAGULASE POSITIVE (STAPHYLOCOCC US AUREUS) [facility] Report Status Final [id number] [facility] 11/02/2004 5:43 EDT 11/02/2004 [...] aureus) Ciprofloxacin SUSCEPTIBILITY (TRISTEN) <=0.5 Susceptible Susceptible us Hilton Álvarez MD MICROBIOLOGY - GENERAL ORD ERABLES Final Result [facility] [address] [place] [address] * (ABNORMAL) UA WITH MICROSCOPIC (11/02/2004 5:43 EDT) Color, UA Yellow [facility] Clarity, UA Cloudy [facility] Glucose, UA Norm NORM [facility] Bilirubin, UA Neg NEG [facility] Ketones, UA Neg NEG [facility] Specific [place], Urine 1.015 1.005 - 1.02 [facility] Blood, UA Mod(A) NEG [facility] pH, UA 6.0 5.0 - 9.0 [facility] Protein, UA 1+(A) NEG [facility] Urobilinogen, UA Norm NORM mg/dL [facility] Nitrite, UA Pos(A) NEG [facility] Leuk Esterase Large(A) NEG [facility] WBC, UA Innum 0 - 5 /HPF [facility] RBC, UA 5 to 10 0 - 5 /HPF [facility] Squam Epithel, UA Microscopic field obscured by WBC's(A) NS /HPF [facility] Renal Epithel, UA Microscopic field obscured by WBC's(A) NS /HPF [facility] Bacteria, UA Many(A) NS /HPF [facility] Crystals, UA Microscopic field obscured by WBC's /HPF [facility] Hyaline Casts, UA Microscopic field obscured by WBC's /LPF [facility] UA Comment Microscopic results are unreliable on urines unrefrig >2hrs or refrig >8hrs. [facility] 11/02/2004 5:43 EDT 11/02/2004 5:43 EDT Hilton Álvarez MD URINALYSIS ORDERABLES Jacquie l Result Performing Organization Address [facility] Co de Phone Number [facility] [address] [place] [address] * CULTURE IF UA POSITIVE (11/02/2004 5:43 EDT) Culture if Indicated Culture indicated by urinalysis results. [facility] 11/02/2004 5:43 EDT 11/02/2004 5:43 EDT Hilton Álvarez MD MICROBIOLOGY - GENERAL ORD ERABLES Final Result Performing Organization Address [facility] de Phone Number [facility] [address] [place] [address] * ELECTROLYTES (11/02/2004 4:10 EDT) Sodium 143 136 - 145 mEq/L [facility] Potassium 4.2 3.6 - 5.2 mEq/L [facility] Chloride 104 96 - 110 mEq/L [facility] CO2 31 24 - 32 mEq/L [facility] 11/02/2004 4:10 EDT 11/02/2004 4:10 EDT Hilton Álvarez MD CHEMISTRY & BLOOD GAS ORDE RABLES Final Result Performing Organization Address [facility] Co de Phone Number [facility] [address] [place] [address] * SODIUM (11/02/2004 0:09 EDT) Sodium 143 136 - 145 mEq/L [facility] 11/02/2004 0:09 EDT 11/02/2004 0:09 EDT Hilton Álvarez MD CHEMISTRY & BLOOD GAS ORDE RABLES Final Result Performing Organization Address City/[facility] Co de Phone Number [facility] [address] [place] [address] * ELECTROLYTES (11/01/2004 20:00 EDT) Sodium 142 136 - 145 mEq/L [facility] Potassium 4.2 3.6 - 5.2 mEq/L [facility] Chloride 104 96 - 110 mEq/L [facility] CO2 27 24 - 32 mEq/L [facility] 11/01/2004 20:0 0 EDT 11/01/2004 20:30 EDT Hilton Álvarez MD CHEMISTRY & BLOOD GAS ORDE RABLES Final Result Performing Organization Address City/[facility]/ZIP Co de Phone Number [facility] [address] [place] [address] * SODIUM (11/01/2004 16:19 EDT) Sodium 142 136 - 145 mEq/L [facility] 11/01/2004 16:1 9 EDT 11/01/2004 16:19 EDT Hilton Álvarez MD CHEMISTRY & BLOOD GAS ORDE RABLES Final Result Performing Organization Address [facility] Co de Phone Number [facility] [address] [place] [address] * SODIUM (11/01/2004 12:28 EDT) Sodium 143 136 - 145 mEq/L [facility] Comment:Heparinized plasma. 11/01/2004 12:2 8 EDT 11/01/2004 12:28 EDT Hilton Álvarez MD CHEMISTRY & BLOOD GAS ORDE RABLES Final Result Performing Organization Address [facility] Co de Phone Number [facility] [address] [place] [address] * POTASSIUM (11/01/2004 12:28 EDT) Potassium 4.6 3.6 - 5.2 mEq/L [facility] Comment:Heparinized plasma. 11/01/2004 12:2 8 EDT 11/01/2004 12:28 EDT us Hilton Álvarez MD CHEMISTRY & BLOOD GAS ORDE RABLES Final Result Performing Organization Address City/[facility]/ZIP Co de Phone Number [facility] [address] [place] [address] * CO2 (11/01/2004 12:28 EDT) CO2 26 24 - 32 mEq/L [facility] Comment:Heparinized plasma. 11/01/2004 12:2 8 EDT 11/01/2004 12:28 EDT us Hilton Álvarez MD CHEMISTRY & BLOOD GAS ORDE RABLES Final Result Performing Organization Address [facility] Co de Phone Number [facility] [address] [place] [address] * CHLORIDE (11/01/2004 12:28 EDT) Chloride 107 96 - 110 mEq/L [facility] Comment:Heparinized plasma. 11/01/2004 12:2 8 EDT 11/01/2004 12:28 EDT us Hilton Álvarez MD CHEMISTRY & BLOOD GAS ORDE RABLES Final Result Performing Organization Address [facility] Co de Phone Number [facility] [address] [place] [address] * TESTS ADDED BY PHONE (11/01/2004 12:28 EDT) Tests to be added STAT K,CL,CO2 [facility] 11/01/2004 12:2 8 EDT 11/01/2004 12:28 EDT us Hilton Álvarez MD CHEMISTRY & BLOOD GAS ORDE RABLES Final Result Performing Organization Address City/[facility]/ZIP Co de Phone Number [facility] [address] [place] [address] * SODIUM (11/01/2004 8:26 EDT) Sodium 143 136 - 145 mEq/L [facility] Comment:Heparinized plasma. 11/01/2004 8:26 EDT 11/01/2004 8:26 EDT Hilton Álvarez MD CHEMISTRY & BLOOD GAS ORDE RABLES Final Result Performing Organization Address [facility] de Phone Number [facility] [address] [place] [address] * PHENYTOIN (11/01/2004 4:18 EDT) Phenytoin 11.1 ug/ml [facility] Comment:Heparinized plasma. Calculated Phenytoin 15.0 ug/ml [facility] Comment: Calculated phenytoin is adjusted for albumin level. Phenytoin levels may be further altered by severe renal failure (CrCl<10 ml/min). Consult pharmacy for renal or therapeutic dosing questions. Heparinized plasma. 11/01/2004 4:18 EDT 11/01/2004 4:18 EDT Hilton Álvarez MD CHEMISTRY & BLOOD GAS ORDE RABLES Final Result Performing Organization Address [facility] Phone Number [facility] [address] [place] [address] * ELECTROLYTES (11/01/2004 4:18 EDT) Sodium 141 136 - 145 mEq/L [facility] Comment:Heparinized plasma. Potassium 4.4 3.6 - 5.2 mEq/L [facility] Comment:Heparinized plasma. Chloride 105 96 - 110 mEq/L [facility] Comment:Heparinized plasma. CO2 28 24 - 32 mEq/L [facility] Comment:Heparinized plasma. 11/01/2004 4:18 EDT 11/01/2004 4:18 EDT Hilton Álvarez MD CHEMISTRY & BLOOD GAS ORDE RABLES Final Result Performing Organization Address [facility] Co de Phone Number [facility] [address] [place] [address] * SODIUM (11/01/2004 2:27 EDT) Sodium 145 136 - 145 mEq/L [facility] Comment:Heparinized plasma. 11/01/2004 2:27 EDT 11/01/2004 2:27 EDT Hilton Álvarez MD CHEMISTRY & BLOOD GAS ORDE RIDDHI Final Result Performing Organization Address [facility] de Phone Number [facility] [address] [place] [address] * ELECTROLYTES (11/01/2004 0:10 EDT) Sodium 143 136 - 145 mEq/L [facility] Potassium 4.1 3.6 - 5.2 mEq/L [facility] Chloride 103 96 - 110 mEq/L [facility] Comment:Sample retested, res ult confirmed CO2 29 24 - 32 mEq/L [facility] 11/01/2004 0:10 EDT 11/01/2004 0:10 EDT Hilton Álvarez MD CHEMISTRY & BLOOD GAS ORDEmerald HANNON Final Result Performing Organization Address [facility] de Phone Number [facility] [address] [place] [address] * SODIUM (10/31/2004 18:48 EDT) Sodium 137 136 - 145 mEq/L [facility] 10/31/2004 18:4 8 EDT 10/31/2004 18:48 EDT Hilton Álvarez MD CHEMISTRY & BLOOD GAS ORDEmerald RABREBECA Final Result Performing Organization Address [facility] Co de Phone Number [facility] [address] [place] [address] * (ABNORMAL) SODIUM (10/31/2004 16:29 EDT) Sodium 133(L) 136 - 145 mEq/L [facility] Comment:Heparinized plasma. 10/31/2004 16:2 9 EDT 10/31/2004 16:29 EDT Hilton Álvarez MD CHEMISTRY & BLOOD GAS ORDE RIDDHI Final Result Performing Organization Address [facility] de Phone Number [facility] [address] [place] [address] * (ABNORMAL) ELECTROLYTES (10/31/2004 12:08 EDT) Sodium 129(L) 136 - 145 mEq/L [facility] Comment:Heparinized plasma. Potassium 4.0 3.6 - 5.2 mEq/L [facility] Comment:Heparinized plasma. Chloride 91(L) 96 - 110 mEq/L [facility] Comment:Heparinized plasma. CO2 30 24 - 32 mEq/L [facility] Comment:Heparinized plasma. 10/31/2004 12:0 8 EDT 10/31/2004 12:08 EDT Hilton Álvarez MD CHEMISTRY & BLOOD GAS ORDE RIDDHI Final Result Performing Organization Address [facility] de Phone Number [facility] [address] [place] [address] * (ABNORMAL) SODIUM (10/31/2004 8:18 EDT) Sodium 130(L) 136 - 145 mEq/L [facility] 10/31/2004 8:18 EDT 10/31/2004 8:18 EDT us Hilton Álvarez MD CHEMISTRY & BLOOD GAS ORDE RABREBECA Final Result Performing Organization Address [facility] de Phone Number [facility] [address] [place] [address] * OSMOLALITY, URINE (10/31/2004 6:28 EDT) Osmolality, Ur 723 MOS/KG [facility] 10/31/2004 6:28 EDT 10/31/2004 6:28 EDT Hilton Álvarez MD URINALYSIS ORDERABLES Jacquie l Result Performing Organization Address [facility] de Phone Number [facility] [address] [place] [address] * SODIUM, URINE RANDOM (10/31/2004 6:28 EDT) Sodium, Ur 188.0 mEq/L [facility] 10/31/2004 6:28 EDT 10/31/2004 6:28 EDT Hilton Álvarez MD URINALYSIS ORDERABLES Jacquie l Result Performing Organization Address [facility] Phone Number [facility] [address] [place] [address] * OSMOLALITY (10/31/2004 6:26 EDT) Osmolality Cintia 280 MOS/KG [facility] 10/31/2004 6:26 EDT 10/31/2004 6:26 EDT Hilton Álvarez MD CHEMISTRY & BLOOD GAS ORDE RABLES Final Result Performing Organization Address [facility] Phone Number [facility] [address] [place] [address] * (ABNORMAL) SODIUM (10/31/2004 6:26 EDT) Sodium 128(L) 136 - 145 mEq/L [facility] 10/31/2004 6:26 EDT 10/31/2004 6:26 EDT Hilton Álvarez MD CHEMISTRY & BLOOD GAS ORDE RABLES Final Result Performing Organization Address [facility] Phone Number [facility] [address] [place] [address] * (ABNORMAL) ELECTROLYTES (10/31/2004 4:18 EDT) Sodium 128(L) 136 - 145 mEq/L [facility] Potassium 4.3 3.6 - 5.2 mEq/L [facility] Chloride 91(L) 96 - 110 mEq/L [facility] CO2 28 24 - 32 mEq/L [facility] 10/31/2004 4:18 EDT 10/31/2004 4:18 EDT us Hilton Álvarez MD CHEMISTRY & BLOOD GAS HERMES HANNON Final Result [facility] [address] [place] [address] * (ABNORMAL) HEMAGRAM AND DIFFERENTIAL (10/31/2004 4:18 EDT) WBC 9.50 4.5 - 13.0 K/cmm [facility] [...] EDT Hilton Álvarez MD PACKAGES & DNA PROBE ORDER LYNDSEY Final Result Performing Organization Address [facility] de Phone Number [facility] [address] [place] [address] * (ABNORMAL) ELECTROLYTES (10/30/2004 20:33 EDT) Sodium 131(L) 136 - 145 mEq/L [facility] Potassium 4.3 3.6 - 5.2 mEq/L [facility] Chloride 94(L) 96 - 110 mEq/L [facility] CO2 29 24 - 32 mEq/L [facility] 10/30/2004 20:3 3 EDT 10/30/2004 20:33 EDT Hilton Álvarez MD CHEMISTRY & BLOOD GAS ORDE RABREBECA Final Result Performing Organization Address [facility] de Phone Number [facility] [address] [place] [address] * (ABNORMAL) SODIUM (10/30/2004 16:02 EDT) Sodium 133(L) 136 - 145 mEq/L [facility] 10/30/2004 16:0 2 EDT 10/30/2004 16:02 EDT Hilton Álvarez MD CHEMISTRY & BLOOD GAS ORDE RABLES Final Result Performing Organization Address [facility] de Phone Number [facility] [address] [place] [address] * (ABNORMAL) ELECTROLYTES (10/30/2004 12:09 EDT) Sodium 133(L) 136 - 145 mEq/L [facility] Potassium 3.8 3.6 - 5.2 mEq/L [facility] Chloride 95(L) 96 - 110 mEq/L [facility] CO2 28 24 - 32 mEq/L [facility] 10/30/2004 12:0 9 EDT 10/30/2004 12:09 EDT Hilton Álvarez MD CHEMISTRY & BLOOD GAS ORDE RABLES Final Result Performing Organization Address [facility] Co de Phone Number [facility] [address] [place] [address] * (ABNORMAL) SODIUM (10/30/2004 10:28 EDT) Sodium 132(L) 136 - 145 mEq/L [facility] 10/30/2004 10:2 8 EDT 10/30/2004 10:28 EDT Hilton Álvarez MD CHEMISTRY & BLOOD GAS ORDE RABLES Final Result Performing Organization Address [facility] de Phone Number [facility] [address] [place] [address] * PHENYTOIN (10/30/2004 4:13 EDT) Phenytoin 13.3 ug/ml [facility] Calculated Phenytoin 18.0 ug/ml [facility] Comment: Calculated phenytoin is adjusted for albumin level. Phenytoin levels may be further altered by severe renal failure (CrCl<10 ml/min). Consult pharmacy for renal or therapeutic dosing questions. 10/30/2004 4:13 EDT 10/30/2004 4:13 EDT Hilton Álvarez MD CHEMISTRY & BLOOD GAS ORDE RABLES Final Result Performing Organization Address [facility] de Phone Number [facility] [address] [place] [address] * (ABNORMAL) ELECTROLYTES (10/30/2004 4:13 EDT) Sodium 132(L) 136 - 145 mEq/L [facility] Potassium 4.4 3.6 - 5.2 mEq/L [facility] Chloride 97 96 - 110 mEq/L [facility] CO2 27 24 - 32 mEq/L [facility] 10/30/2004 4:13 EDT 10/30/2004 4:13 EDT us Hilton Álvarez MD CHEMISTRY & BLOOD GAS ORDE RIDDHI Final Result Performing Organization Address City/[facility]/ZIP Co de Phone Number [facility] [address] [place] [address] * (ABNORMAL) HEMAGRAM AND DIFFERENTIAL (10/30/2004 4:13 EDT) WBC 9.30 4.5 - 13.0 K/cmm [facility] RBC 3.13(L) 4.50 - 5.30 M/cmm [facility] Hemoglobin 9.0(L) 13.0 - 16.0 gm/dl [facility] HCT 25.8(L) 37.0 - 49.0 % [facility] MCV 83 78 - 98 fl [facility] MCH 28.6 pg [facility] MCHC 34.7 gm/dl [facility] PLT 304 156 - 312 K/cmm [facility] RDW-CV 16.1 % [facility] % Neutrophils 64.5 % [facility] % Lymphocytes 23.9 % [facility] % Monocytes 9.4 % [facility] % Eosinophils 1.2 % [facility] % Basophils 1.0 % [facility] ABS Neutrophils 6.01 K/cmm [facility] ABS Lymphs 2.22 K/cmm [facility] ABS Monocytes 0.87 K/cmm [facility] Eosinophils 0.11 K/cmm [facility] Basophils 0.09 K/cmm [facility] Type of Diff: Automated [facility] 10/30/2004 4:13 EDT 10/30/2004 4:13 EDT Hilton Álvarez MD PACKAGES & DNA PROBE ORDER LYNDSEY Final Result Performing Organization Address City/[facility]/ZIP Co de Phone Number [facility] [address] [place] [address] * (ABNORMAL) ELECTROLYTES (10/30/2004 0:11 EDT) Sodium 135(L) 136 - 145 mEq/L [facility] Potassium 3.7 3.6 - 5.2 mEq/L [facility] Chloride 97 96 - 110 mEq/L [facility] CO2 28 24 - 32 mEq/L [facility] 10/30/2004 0:11 EDT 10/30/2004 0:11 EDT Hilton Álvarez MD CHEMISTRY & BLOOD GAS ORDE RABLES Final Result Performing Organization Address City/[facility]/ZIP Co de Phone Number [facility] [address] [place] [address] * (ABNORMAL) SODIUM (10/30/2004 0:04 EDT) Sodium 131(L) 136 - 145 mEq/L [facility] 10/30/2004 0:04 EDT 10/31/2004 0:04 EDT Hilton Álvarez MD CHEMISTRY & BLOOD GAS ORDE RABLES Final Result Performing Organization Address City/[facility] Co de Phone Number [facility] [address] [place] [address] * (ABNORMAL) SODIUM (10/29/2004 22:00 EDT) Sodium 135(L) 136 - 145 mEq/L [facility] 10/29/2004 22:0 0 EDT 10/29/2004 22:00 EDT Hitlon Álvarez MD CHEMISTRY & BLOOD GAS ORDE RABLES Final Result Performing Organization Address City/[facility]/ZIP Co de Phone Number [facility] [address] [place] [address] * (ABNORMAL) ELECTROLYTES (10/29/2004 18:14 EDT) Sodium 134(L) 136 - 145 mEq/L [facility] Potassium 5.0 3.6 - 5.2 mEq/L [facility] Chloride 99 96 - 110 mEq/L [facility] CO2 27 24 - 32 mEq/L [facility] 10/29/2004 18:1 4 EDT 10/29/2004 18:14 EDT Hilton Álvarez MD CHEMISTRY & BLOOD GAS ORDE RABLES Final Result Performing Organization Address [facility] Co de Phone Number [facility] [address] [place] [address] * (ABNORMAL) ELECTROLYTES (10/29/2004 16:19 EDT) Sodium 133(L) 136 - 145 mEq/L [facility] Potassium 6.2(HH) 3.6 - 5.2 mEq/L [facility] Comment:Sample retested, res ult confirmed Chloride 99 96 - 110 mEq/L [facility] CO2 26 24 - 32 mEq/L [facility] 10/29/2004 16:1 9 EDT 10/29/2004 16:19 EDT Hilton Álvarez MD CHEMISTRY & BLOOD GAS ORDE RABLES Final Result Performing Organization Address [facility] de Phone Number [facility] [address] [place] [address] * (ABNORMAL) SODIUM (10/29/2004 12:59 EDT) Sodium 132(L) 136 - 145 mEq/L [facility] Comment:Heparinized plasma. 10/29/2004 12:5 9 EDT 10/29/2004 12:59 EDT Hilton Álvarez MD CHEMISTRY & BLOOD GAS ORDE RABLES Final Result Performing Organization Address [facility] Co de Phone Number [facility] [address] [place] [address] * (ABNORMAL) ELECTROLYTES (10/29/2004 8:16 EDT) Sodium 135(L) 136 - 145 mEq/L [facility] Potassium 4.2 3.6 - 5.2 mEq/L [facility] Chloride 98 96 - 110 mEq/L [facility] CO2 30 24 - 32 mEq/L [facility] 10/29/2004 8:16 EDT 10/29/2004 8:16 EDT Hilton Álvarez MD CHEMISTRY & BLOOD GAS ORDE RABLES Final Result Performing Organization Address [facility] de Phone Number [facility] [address] [place] [address] * (ABNORMAL) SODIUM (10/29/2004 4:11 EDT) Sodium 135(L) 136 - 145 mEq/L [facility] 10/29/2004 4:11 EDT 10/29/2004 4:11 EDT Hilton Álvarez MD CHEMISTRY & BLOOD GAS ORDE RABLES Final Result Performing Organization Address [facility] de Phone Number [facility] [address] [place] [address] * (ABNORMAL) T4 FREE (10/29/2004 4:11 EDT) Free T4 0.5(L) 0.8 - 1.8 ng/dl [facility] 10/29/2004 4:11 EDT 10/29/2004 4:11 EDT Hilton Álvarez MD CHEMISTRY & BLOOD GAS ORDE RABLES Final Result Performing Organization Address [facility] de Phone Number [facility] [address] [place] [address] * (ABNORMAL) HEMAGRAM AND DIFFERENTIAL (10/29/2004 4:11 EDT) WBC 7.66 4.5 - 13.0 K/cmm [facility] RBC 3.14(L) 4.50 - 5.30 M/cmm [facility] Hemoglobin 8.9(L) 13.0 - 16.0 gm/dl [facility] HCT 26.3(L) 37.0 - 49.0 % [facility] MCV 84 78 - 98 fl [facility] MCH 28.3 pg [facility] MCHC 33.8 gm/dl [facility] PLT 264 156 - 312 K/cmm [facility] RDW-CV 15.7 % [facility] [...] of Diff: Automated [facility] 10/29/2004 4:11 EDT 10/29/2004 4:11 EDT us Hilton Álvarez MD PACKAGES & DNA PROBE ORDER LYNDSEY Final Result Performing Organization Address City/[facility]/ZIP Co de Phone Number [facility] [address] [place] [address] * SODIUM (10/29/2004 4:00 EDT) Sodium 136 - 145 mEq/L [facility] 10/29/2004 4:00 EDT 11/12/2004 7:24 EDT us Hilton Álvarez MD CHEMISTRY & BLOOD GAS ORDE RIDDHI Final Result [facility] [address] [place] [address] * ELECTROLYTES (10/29/2004 0:06 EDT) Sodium 136 136 - 145 mEq/L [facility] Potassium 4.6 3.6 - 5.2 mEq/L [facility] Chloride 98 96 - 110 mEq/L [facility] CO2 31 24 - 32 mEq/L [facility] 10/29/2004 0:06 EDT 10/29/2004 0:06 EDT Hilton Álvarez MD CHEMISTRY & BLOOD GAS ORDE RABLES Final Result Performing Organization Address [facility] de Phone Number [facility] [address] [place] [address] * SODIUM (10/28/2004 20:20 EDT) Sodium 136 136 - 145 mEq/L [facility] 10/28/2004 20:2 0 EDT 10/28/2004 20:25 EDT Hilton Álvarez MD CHEMISTRY & BLOOD GAS ORDE RABLES Final Result Performing Organization Address [facility] de Phone Number [facility] [address] [place] [address] * ELECTROLYTES (10/28/2004 16:32 EDT) Sodium 136 136 - 145 mEq/L [facility] Potassium 4.1 3.6 - 5.2 mEq/L [facility] Chloride 100 96 - 110 mEq/L [facility] CO2 27 24 - 32 mEq/L [facility] 10/28/2004 16:3 2 EDT 10/28/2004 16:37 EDT Hilton Álvarez MD CHEMISTRY & BLOOD GAS ORDE RABLES Final Result Performing Organization Address [facility] de Phone Number [facility] [address] [place] [address] * SODIUM (10/28/2004 12:21 EDT) Sodium 136 136 - 145 mEq/L [facility] Comment:Heparinized plasma. 10/28/2004 12:2 1 EDT 10/28/2004 12:21 EDT Hilton Álvarez MD CHEMISTRY & BLOOD GAS ORDE RIDDHI Final Result Performing Organization Address [facility] Phone Number [facility] [address] [place] [address] * (ABNORMAL) ELECTROLYTES (10/28/2004 8:53 EDT) Sodium 134(L) 136 - 145 mEq/L [facility] Comment:Heparinized plasma. Potassium 4.3 3.6 - 5.2 mEq/L [facility] Comment:Heparinized plasma. Chloride 96 96 - 110 mEq/L [facility] Comment:Heparinized plasma. CO2 28 24 - 32 mEq/L [facility] Comment:Heparinized plasma. 10/28/2004 8:53 EDT 10/28/2004 8:53 EDT Hilton Álvarez MD CHEMISTRY & BLOOD GAS ORDE RABREBECA Final Result Performing Organization Address [facility] Phone Number [facility] [address] [place] [address] * PHENYTOIN (10/28/2004 4:41 EDT) Phenytoin 7.0 ug/ml [facility] Calculated Phenytoin 9.7 ug/ml [facility] Comment: Calculated phenytoin is adjusted for albumin level. Phenytoin levels may be further altered by severe renal failure (CrCl<10 ml/min). Consult pharmacy for renal or therapeutic dosing questions. 10/28/2004 4:41 EDT 10/28/2004 4:41 EDT Hilton Álvarez MD CHEMISTRY & BLOOD GAS ORDE RABREBECA Final Result Performing Organization Address [facility] de Phone Number [facility] [address] [place] [address] * ELECTROLYTES (10/28/2004 4:41 EDT) Sodium 139 136 - 145 mEq/L [facility] Potassium 4.2 3.6 - 5.2 mEq/L [facility] Chloride 99 96 - 110 mEq/L [facility] CO2 25 24 - 32 mEq/L [facility] 10/28/2004 4:41 EDT 10/28/2004 4:41 EDT Hilton Álvarez MD CHEMISTRY & BLOOD GAS ORDE RABLES Final Result Performing Organization Address [facility] de Phone Number [facility] [address] [place] [address] * (ABNORMAL) CREATININE (10/28/2004 4:41 EDT) Pathologist [facility] [place] Creatinine 0.5(L) 0.6 - 1.2 mg/dl [facility] 10/28/2004 4:41 EDT 10/28/2004 4:41 EDT Hilton Álvarez MD HISTORICAL LAB FOR SQ LOAD Final Result Performing Organization Address [facility] de Phone Number [facility] [address] [place] [address] * (ABNORMAL) HEMAGRAM AND DIFFERENTIAL (10/28/2004 4:41 EDT) Pathologist [facility] [place] WBC 8.20 4.5 - 13.0 K/cmm [facility] RBC 3.20(L) 4.50 - 5.30 M/cmm [facility] Hemoglobin 9.1(L) 13.0 - 16.0 gm/dl [facility] HCT 26.6(L) 37.0 - 49.0 % [facility] MCV 83 78 - 98 fl [facility] MCH 28.4 pg [facility] MCHC 34.2 gm/dl [facility] PLT 262 156 - 312 K/cmm [facility] RDW-CV 16.5 % [facility] Neutrophils 48.0 % [facility] % Bands 1.0 % [facility] Lymphocytes 30.0 % [facility] Monocytes 15.0 % [facility] Basophils 2.0 % [facility] % Metamyelocytes 4.0 % [facility] ABS Neutrophils 3.94 K/cmm [facility] Bands 0.08 K/cmm [facility] ABS Lymphs 2.46 K/cmm [facility] ABS Monocytes 1.23 K/cmm [facility] ABS Basophils 0.16 K/cmm [facility] ABS Metamyelocytes 0.33 K/cmm [facility] RBC Morphology 1+ Anisocytosis 1+ Baso. stippling 1+ Microcytes 1+ Poikilocytosis 1+ Polychromasia [facility] Type of Diff: Manual [facility]AR[facility] 10/28/2004 4:41 EDT 10/28/2004 4:41 EDT Hilton Álvarez MD PACKAGES & DNA PROBE ORDER LYNDSEY Final Result Performing Organization Address [facility] de Phone Number [facility] [address] [place] [address] * BUN (10/28/2004 4:41 EDT) BUN 17 8 - 21 mg/dl [facility] 10/28/2004 4:41 EDT 10/28/2004 4:41 EDT Hilton Álvarez MD CHEMISTRY & BLOOD GAS ORDE RABLES Final Result Performing Organization Address [facility] de Phone Number [facility] [address] [place] [address] * (ABNORMAL) ELECTROLYTES (10/28/2004 0:20 EDT) Sodium 134(L) 136 - 145 mEq/L [facility] Potassium 4.8 3.6 - 5.2 mEq/L [facility] Chloride 98 96 - 110 mEq/L [facility] CO2 29 24 - 32 mEq/L [facility] 10/28/2004 0:20 EDT 10/28/2004 0:42 EDT Hilton Álvarez MD CHEMISTRY & BLOOD GAS ORDE RABLES Final Result Performing Organization Address [facility] Co de Phone Number [facility] [address] [place] [address] * SODIUM (10/27/2004 20:52 EDT) Sodium 136 136 - 145 mEq/L [facility] Comment:Heparinized plasma. 10/27/2004 20:5 2 EDT 10/27/2004 20:52 EDT us Hilton Álvarez MD CHEMISTRY & BLOOD GAS ORDE RABLES Final Result Performing Organization Address [facility] de Phone Number [facility] [address] [place] [address] * ELECTROLYTES (10/27/2004 16:02 EDT) Sodium 136 136 - 145 mEq/L [facility] Potassium 4.8 3.6 - 5.2 mEq/L [facility] Chloride 100 96 - 110 mEq/L [facility] Comment:Sample retested, res ult confirmed CO2 27 24 - 32 mEq/L [facility] 10/27/2004 16:0 2 EDT 10/27/2004 16:02 EDT us Hilton Álvarez MD CHEMISTRY & BLOOD GAS ORDE RABLES Final Result Performing Organization Address [facility] de Phone Number [facility] [address] [place] [address] * (ABNORMAL) SODIUM (10/27/2004 12:49 EDT) Sodium 135(L) 136 - 145 mEq/L [facility] 10/27/2004 12:4 9 EDT 10/27/2004 12:49 EDT us Hilton Álvarez MD CHEMISTRY & BLOOD GAS ORDE RABLES Final Result Performing Organization Address [facility] Co de Phone Number [facility] [address] [place] [address] * (ABNORMAL) ELECTROLYTES (10/27/2004 8:21 EDT) Sodium 137 136 - 145 mEq/L [facility] Potassium 3.4(L) 3.6 - 5.2 mEq/L [facility] Chloride 112(H) 96 - 110 mEq/L [facility] CO2 21(L) 24 - 32 mEq/L [facility] 10/27/2004 8:21 EDT 10/27/2004 8:21 EDT us Hilton Álvarez MD CHEMISTRY & BLOOD GAS ORDE RABLES Final Result Performing Organization Address [facility] Co de Phone Number [facility] [address] [place] [address] * PHENYTOIN (10/27/2004 4:18 EDT) Phenytoin 10.6 ug/ml [facility] Calculated Phenytoin 14.7 ug/ml [facility] Comment: Calculated phenytoin is adjusted for albumin level. Phenytoin levels may be further altered by severe renal failure (CrCl<10 ml/min). Consult pharmacy for renal or therapeutic dosing questions. 10/27/2004 4:18 EDT 10/27/2004 4:18 EDT us Hilton Álvarez MD CHEMISTRY & BLOOD GAS ORDE RABLES Final Result Performing Organization Address [facility] Co de Phone Number [facility] [address] [place] [address] * SODIUM (10/27/2004 4:18 EDT) Sodium 137 136 - 145 mEq/L [facility] 10/27/2004 4:18 EDT 10/27/2004 4:18 EDT Hilton Álvarez MD CHEMISTRY & BLOOD GAS ORDE RABLES Final Result Performing Organization Address City/[facility] Co de Phone Number [facility] [address] [place] [address] * (ABNORMAL) CREATININE (10/27/2004 4:18 EDT) Creatinine 0.5(L) 0.6 - 1.2 mg/dl [facility] 10/27/2004 4:18 EDT 10/27/2004 4:18 EDT Hilton Álvarez MD HISTORICAL LAB FOR SQ LOAD Final Result [facility] [address] [place] [address] * (ABNORMAL) HEMAGRAM AND DIFFERENTIAL (10/27/2004 4:18 EDT) WBC 8.04 4.5 - 13.0 K/cmm [facility] [...] [facility] RDW-CV 16.5 % [facility] Neutrophils 65.0 % [facility] Lymphocytes 17.0 % [facility] Monocytes 6.0 % [facility] Eosinophils 4.0 % [facility] Basophils 1.0 % [facility] % Metamyelocytes 6.0 % [facility] % Myelocytes 1.0 % [facility] Neutrophils 5.23 K/cmm [facility] Lymphs 1.37 K/cmm [facility] Monocytes 0.48 K/cmm [facility] Eosinophils 0.32 K/cmm [facility] Basophils 0.08 K/cmm [facility] ABS Metamyelocytes 0.48 K/cmm [facility] ABS Myelocytes 0.08 K/cmm [facility] RBC Morphology 1+ Anisocytosis 1+ Poikilocytosis 1+ Polychromasia 1+ Ovalocytes 1+ Teardrop cells [facility] WBC Morphology 1+ Smudge cells [facility] Type of Diff: Manual [facility] 10/27/2004 4:18 EDT 10/27/2004 4:18 EDT Hilton Álvarez MD PACKAGES & DNA PROBE ORDER LYNDSEY Final Result Performing Organization Address [facility] de Phone Number [facility] [address] [place] [address] * BUN (10/27/2004 4:18 EDT) BUN 13 8 - 21 mg/dl [facility] 10/27/2004 4:18 EDT 10/27/2004 4:18 EDT Hilton Álvarez MD CHEMISTRY & BLOOD GAS ORDE RABLES Final Result Performing Organization Address [facility] de Phone Number [facility] [address] [place] [address] * ELECTROLYTES (10/27/2004 2:28 EDT) Sodium 136 136 - 145 mEq/L [facility] Potassium 4.6 3.6 - 5.2 mEq/L [facility] Chloride 101 96 - 110 mEq/L [facility] CO2 28 24 - 32 mEq/L [facility] 10/27/2004 2:28 EDT 10/27/2004 2:28 EDT Hilton Álvarez MD CHEMISTRY & BLOOD GAS ORDE RABLES Final Result Performing Organization Address [facility] de Phone Number [facility] [address] [place] [address] * SODIUM (10/26/2004 20:40 EDT) Sodium 138 136 - 145 mEq/L [facility] 10/26/2004 20:4 0 EDT 10/26/2004 20:52 EDT us Hilton Ávlarez MD CHEMISTRY & BLOOD GAS ORDE RABLES Final Result Performing Organization Address [facility] de Phone Number [facility] [address] [place] [address] * ELECTROLYTES (10/26/2004 16:01 EDT) Sodium 137 136 - 145 mEq/L [facility] Potassium 4.2 3.6 - 5.2 mEq/L [facility] Chloride 104 96 - 110 mEq/L [facility] CO2 27 24 - 32 mEq/L [facility] 10/26/2004 16:0 1 EDT 10/26/2004 16:01 EDT us Hilton Álvarez MD CHEMISTRY & BLOOD GAS ORDE RABLES Final Result Performing Organization Address [facility] de Phone Number [facility] [address] [place] [address] * SODIUM (10/26/2004 12:39 EDT) Sodium 138 136 - 145 mEq/L [facility] Comment:Heparinized plasma. 10/26/2004 12:3 9 EDT 10/26/2004 12:39 EDT Hilton Álvarez MD CHEMISTRY & BLOOD GAS ORDE RABLES Final Result Performing Organization Address [facility] de Phone Number [facility] [address] [place] [address] * MAGNESIUM (10/26/2004 8:05 EDT) Magnesium 2.4 1.7 - 2.8 mg/dl [facility] Comment:Heparinized plasma. 10/26/2004 8:05 EDT 10/26/2004 8:05 EDT Hilton Álvarez MD CHEMISTRY & BLOOD GAS ORDE RABLES Final Result Performing Organization Address [facility] de Phone Number [facility] [address] [place] [address] * ELECTROLYTES (10/26/2004 8:05 EDT) Sodium 138 136 - 145 mEq/L [facility] Comment:Heparinized plasma. Potassium 4.1 3.6 - 5.2 mEq/L [facility] Comment:Heparinized plasma. Chloride 102 96 - 110 mEq/L [facility] Comment:Heparinized plasma. CO2 28 24 - 32 mEq/L [facility] Comment:Heparinized plasma. 10/26/2004 8:05 EDT 10/26/2004 8:05 EDT Hilton Álvarez MD CHEMISTRY & BLOOD GAS ORDE [facility] Final Result Performing Organization Address [facility] de Phone Number [facility] [address] [place] [address] * PHENYTOIN (10/26/2004 3:53 EDT) Pathologist [facility] [place] Phenytoin 13.6 ug/ml [facility] Comment:Heparinized plasma. Calculated Phenytoin 20.0 ug/ml [facility] Comment: Calculated phenytoin is adjusted for albumin level. Phenytoin levels may be further altered by severe renal failure (CrCl<10 ml/min). Consult pharmacy for renal or therapeutic dosing questions. Heparinized plasma. 10/26/2004 3:53 EDT 10/26/2004 3:53 EDT Hilton Álvraez MD CHEMISTRY & BLOOD GAS ORDE RABLES Final Result Performing Organization Address [facility] Co de Phone Number [facility] [address] [place] [address] * (ABNORMAL) SODIUM (10/26/2004 3:53 EDT) Sodium 134(L) 136 - 145 mEq/L [facility] Comment:Heparinized plasma. 10/26/2004 3:53 EDT 10/26/2004 3:53 EDT Hilton Álvarez MD CHEMISTRY & BLOOD GAS ORDE RABREBECA Final Result [facility] [address] [place] [address] * (ABNORMAL) CREATININE (10/26/2004 3:53 EDT) Creatinine 0.5(L) 0.6 - 1.2 mg/dl [facility] Comment:Heparinized plasma. 10/26/2004 3:53 EDT 10/26/2004 3:53 EDT Hilton Álvarez MD HISTORICAL LAB FOR SQ LOAD Final Result Performing Organization Address [facility] Co de Phone Number [facility] [address] [place] [address] * (ABNORMAL) HEMAGRAM AND DIFFERENTIAL (10/26/2004 3:53 EDT) Pathologist [facility] [place] WBC 12.68 4.5 - 13.0 K/cmm [facility] RBC 3.23(L) 4.50 - 5.30 M/cmm [facility] Hemoglobin 9.3(L) 13.0 - 16.0 gm/dl [facility] HCT 26.7(L) 37.0 - 49.0 % [facility] MCV 83 78 - 98 fl [facility] MCH 28.9 pg [facility] MCHC 34.9 gm/dl [facility] PLT 301 156 - 312 K/cmm [facility] RDW-CV 16.3 % [facility] % Neutrophils 79.9 % TRUE [facility] % Lymphocytes 13.3 % [facility] % Monocytes 5.9 % [facility] % Eosinophils 0.4 % [facility] % Basophils 0.5 % [facility] ABS Neutrophils 10.13 K/cmm FLENoe [facility] ABS Lymphs 1.68 K/cmm [facility] ABS Monocytes 0.75 K/cmm [facility] ABS Eosinophils 0.05 K/cmm FLENoe [facility] ABS Basophils 0.07 K/cmm [facility] Type of Diff: Automated [facility] 10/26/2004 3:53 EDT 10/26/2004 3:53 EDT Hilton Álvarez MD PACKAGES & DNA PROBE ORDER LYNDSEY Final Result Performing Organization Address [facility] de Phone Number [facility] [address] [place] [address] * BUN (10/26/2004 3:53 EDT) BUN 18 8 - 21 mg/dl [facility] Comment:Heparinized plasma. 10/26/2004 3:53 EDT 10/26/2004 3:53 EDT Hilton Álvarez MD CHEMISTRY & BLOOD GAS ORDE RABLES Final Result Performing Organization Address [facility] de Phone Number [facility] [address] [place] [address] * (ABNORMAL) ELECTROLYTES (10/26/2004 0:15 EDT) Sodium 135(L) 136 - 145 mEq/L [facility] Potassium 3.8 3.6 - 5.2 mEq/L [facility] Chloride 100 96 - 110 mEq/L [facility] CO2 27 24 - 32 mEq/L [facility] 10/26/2004 0:15 EDT 10/26/2004 0:15 EDT Hilton Álvarez MD CHEMISTRY & BLOOD GAS ORDE RABLES Final Result Performing Organization Address [facility] de Phone Number [facility] [address] [place] [address] * SODIUM (10/25/2004 20:41 EDT) Sodium 139 136 - 145 mEq/L [facility] 10/25/2004 20:4 1 EDT 10/25/2004 20:41 EDT Hilton Álvraez MD CHEMISTRY & BLOOD GAS ORDE RABLES Final Result Performing Organization Address [facility] Co de Phone Number [facility] [address] [place] [address] * ELECTROLYTES (10/25/2004 17:25 EDT) Sodium 137 136 - 145 mEq/L [facility] Potassium 3.9 3.6 - 5.2 mEq/L [facility] Chloride 100 96 - 110 mEq/L [facility] CO2 28 24 - 32 mEq/L [facility] 10/25/2004 17:2 5 EDT 10/25/2004 17:27 EDT Hilton Álvarez MD CHEMISTRY & BLOOD GAS ORDE RABLES Final Result Performing Organization Address [facility] Co de Phone Number [facility] [address] [place] [address] * SODIUM (10/25/2004 12:15 EDT) Sodium 137 136 - 145 mEq/L [facility] Comment:Heparinized plasma. 10/25/2004 12:1 5 EDT 10/25/2004 12:32 EDT Hilton Álvarez MD CHEMISTRY & BLOOD GAS ORDE RABLES Final Result Performing Organization Address [facility] de Phone Number [facility] [address] [place] [address] * ELECTROLYTES (10/25/2004 8:30 EDT) Sodium 136 136 - 145 mEq/L [facility] Comment:Heparinized plasma. Potassium 3.8 3.6 - 5.2 mEq/L [facility] Comment:Heparinized plasma. Chloride 102 96 - 110 mEq/L [facility] Comment:Heparinized plasma. CO2 26 24 - 32 mEq/L [facility] Comment:Heparinized plasma. 10/25/2004 8:30 EDT 10/25/2004 8:34 EDT Hilton Álvarez MD CHEMISTRY & BLOOD GAS ORDE RABLES Final Result Performing Organization Address [facility] Co de Phone Number [facility] [address] [place] [address] * TOTAL BILIRUBIN (10/25/2004 4:13 EDT) Bilirubin, Total <0.5 0.0 - 1.4 mg/dl [facility] 10/25/2004 4:13 EDT 10/25/2004 4:13 EDT Hilton Álvarez MD CHEMISTRY & BLOOD GAS ORDE RABLES Final Result Performing Organization Address [facility] de Phone Number [place] [address] * PHOSPHORUS (10/25/2004 4:13 EDT) Phosphorus 2.9 2.9 - 5.4 mg/dl [facility] 10/25/2004 4:13 EDT 10/25/2004 4:13 EDT Hilton Álvarez MD CHEMISTRY & BLOOD GAS ORDE RABLES Final Result Performing Organization Address [facility] Phone Number [place] [address] * PHENYTOIN (10/25/2004 4:13 EDT) Phenytoin 12.2 ug/ml [facility] Calculated Phenytoin 19.7 ug/ml [facility] Comment: Calculated phenytoin is adjusted for albumin level. Phenytoin levels may be further altered by severe renal failure (CrCl<10 ml/min). Consult pharmacy for renal or therapeutic dosing questions. 10/25/2004 4:13 EDT 10/25/2004 4:13 EDT Hilton Álvarez MD CHEMISTRY & BLOOD GAS ORDE RABLES Final Result Performing Organization Address [facility]/ZIP Co de Phone Number [facility] [address] [place] [address] * MAGNESIUM (10/25/2004 4:13 EDT) [facility] Magnesium 1.8 1.7 - 2.8 mg/dl [facility] 10/25/2004 4:13 EDT 10/25/2004 4:13 EDT Hilton Álvarez MD CHEMISTRY & BLOOD GAS ORDE [facility] Final Result Performing Organization Address [facility] Co de Phone Number [facility] [address] [place] [address] * (ABNORMAL) ELECTROLYTES (10/25/2004 4:13 EDT) [facility] Sodium 140 136 - 145 mEq/L [facility] Potassium 3.4(L) 3.6 - 5.2 mEq/L [facility] Chloride 112(H) 96 - 110 mEq/L [facility] CO2 18(L) 24 - 32 mEq/L [facility] 10/25/2004 4:13 EDT 10/25/2004 4:13 EDT Hilton Álvarez MD CHEMISTRY & BLOOD GAS ORDE [facility] Final Result Performing Organization Address [facility] Co de Phone Number [facility] [address] [place] [address] * (ABNORMAL) CREATININE (10/25/2004 4:13 EDT) [facility] Creatinine 0.4(L) 0.6 - 1.2 mg/dl [facility] 10/25/2004 4:13 EDT 10/25/2004 4:13 EDT Hilton Álvarez MD HISTORICAL LAB FOR SQ LOAD Final Result Performing Organization Address [facility] Co de Phone Number [facility] [address] [place] [address] * (ABNORMAL) HEMAGRAM AND DIFFERENTIAL (10/25/2004 4:13 EDT) WBC 6.43 4.5 - 13.0 K/cmm [facility] RBC 2.68(L) 4.50 - 5.30 M/cmm [facility] Hemoglobin 7.6(LL) 13.0 - 16.0 gm/dl [facility] Comment:QNS to repeat HCT 22.3(LL) 37.0 - 49.0 % [facility] MCV 83 78 - 98 fl [facility] MCH 28.2 pg [facility] MCHC 34.0 gm/dl [...] of Diff: Automated [facility] 10/25/2004 4:13 EDT 10/25/2004 4:13 EDT us Hilton Álvarez MD PACKAGES & DNA PROBE ORDER LYNDSEY Final Result [facility] [address] [place] [address] * (ABNORMAL) CALCIUM (10/25/2004 4:13 EDT) Calcium 7.1(L) 8.5 - 10.5 mg/dl [facility] Calculated Calcium 8.9 8.5 - 10.5 mg/dl [facility] 10/25/2004 4:13 EDT 10/25/2004 4:13 EDT us Hilton Álvarez MD CHEMISTRY & BLOOD GAS ORDE RABLES Final Result [facility] [address] [place] [address] * BUN (10/25/2004 4:13 EDT) BUN 14 8 - 21 mg/dl [facility] 10/25/2004 4:13 EDT 10/25/2004 4:13 EDT us Hilton Álvarez MD CHEMISTRY & BLOOD GAS ORDE RABLES Final Result Performing Organization Address City/[facility]/ZIP Co de Phone Number [facility] [address] [place] [address] * (ABNORMAL) AST (10/25/2004 4:13 EDT) AST 179(H) 16 - 38 U/L [facility] 10/25/2004 4:13 EDT 10/25/2004 4:13 EDT us Hilton Álvarez MD CHEMISTRY & BLOOD GAS ORDE RABLES Final Result Performing Organization Address [facility] Co de Phone Number [facility] [address] [place] [address] * (ABNORMAL) ALT (10/25/2004 4:13 EDT) ALT 493(H) 10 - 45 U/L [facility] 10/25/2004 4:13 EDT 10/25/2004 4:13 EDT us Hilton Álvarez MD CHEMISTRY & BLOOD GAS ORDE RABLES Final Result [facility] [address] [place] [address] * (ABNORMAL) ALKALINE PHOSPHATASE (10/25/2004 4:13 EDT) Total Alkaline Phosphatase 90(L) 130 - 525 U/L [facility] 10/25/2004 4:13 EDT 10/25/2004 4:13 EDT Hilton Álvarez MD CHEMISTRY & BLOOD GAS ORDE RABLES Final Result Performing Organization Address [facility] de Phone Number [facility] [address] [place] [address] * (ABNORMAL) ELECTROLYTES (10/25/2004 0:07 EDT) Sodium 140 136 - 145 mEq/L [facility] Potassium 3.3(L) 3.6 - 5.2 mEq/L [facility] Chloride 110 96 - 110 mEq/L [facility] CO2 24 24 - 32 mEq/L [facility] 10/25/2004 0:07 EDT 10/25/2004 0:07 EDT us Hilton Álvarez MD CHEMISTRY & BLOOD GAS ORDE RABLES Final Result Performing Organization Address [facility] de Phone Number [facility] [address] [place] [address] * SODIUM (10/24/2004 20:14 EDT) Sodium 139 136 - 145 mEq/L [facility] 10/24/2004 20:1 4 EDT 10/24/2004 20:14 EDT Hilton Álvarez MD CHEMISTRY & BLOOD GAS ORDE RABLES Final Result Performing Organization Address [facility] de Phone Number [facility] [address] [place] [address] * PHOSPHORUS (10/24/2004 16:01 EDT) Phosphorus 2.9 2.9 - 5.4 mg/dl [facility] 10/24/2004 16:0 1 EDT 10/24/2004 16:06 EDT Hilton Álvarez MD CHEMISTRY & BLOOD GAS ORDE RABLES Final Result Performing Organization Address [facility] de Phone Number [facility] [address] [place] [address] * ELECTROLYTES (10/24/2004 16:01 EDT) Sodium 140 136 - 145 mEq/L [facility] Potassium 3.8 3.6 - 5.2 mEq/L [facility] Chloride 108 96 - 110 mEq/L [facility] CO2 27 24 - 32 mEq/L [facility] 10/24/2004 16:0 1 EDT 10/24/2004 16:06 EDT Hilton Álvarez MD CHEMISTRY & BLOOD GAS ORDE RABREBECA Final Result Performing Organization Address [facility] de Phone Number [facility] [address] [place] [address] * SODIUM (10/24/2004 12:05 EDT) Sodium 142 136 - 145 mEq/L [facility] 10/24/2004 12:0 5 EDT 10/24/2004 12:05 EDT Hilton Álvarez MD CHEMISTRY & BLOOD GAS ORDE RABREBECA Final Result Performing Organization Address [facility] de Phone Number [facility] [address] [place] [address] * (ABNORMAL) ELECTROLYTES (10/24/2004 10:36 EDT) Sodium [...] Hilton Álvarez MD CHEMISTRY & BLOOD GAS ORDE RABLES Final Result Performing Organization Address [facility] Co de Phone Number [facility] [address] [place] [address] * SODIUM (10/24/2004 8:01 EDT) Sodium 140 136 - 145 mEq/L [facility] 10/24/2004 8:01 EDT 10/24/2004 8:01 EDT Hilton Álvarez MD CHEMISTRY & BLOOD GAS ORDE RABLES Final Result Performing Organization Address [facility] Co de Phone Number [facility] [address] [place] [address] * SODIUM (10/24/2004 6:07 EDT) Sodium 136 - 145 mEq/L [facility] 10/24/2004 6:07 EDT 10/24/2004 6:07 EDT Hilton Álvarez MD CHEMISTRY & BLOOD GAS ORDE RABLES Final Result Performing Organization Address [facility] de Phone Number [facility] [address] [place] [address] * (ABNORMAL) ELECTROLYTES (10/24/2004 6:07 EDT) Sodium 140 136 - 145 mEq/L [facility] Comment:Heparinized plasma. Potassium 3.4(L) 3.6 - 5.2 mEq/L [facility] Comment:Heparinized plasma. Chloride 105 96 - 110 mEq/L [facility] Comment:Heparinized plasma. CO2 27 24 - 32 mEq/L [facility] Comment:Heparinized plasma. 10/24/2004 6:07 EDT 10/24/2004 6:07 EDT Hilton Álvarez MD CHEMISTRY & BLOOD GAS ORDE RABLES Final Result Performing Organization Address [facility] Co de Phone Number [facility] [address] [place] [address] * (ABNORMAL) PHENYTOIN (10/24/2004 4:07 EDT) Phenytoin 17.5 ug/ml [facility] Comment:Heparinized plasma. Calculated Phenytoin 25.7(HH) ug/ml [facility] Comment: Calculated phenytoin is adjusted for albumin level. Phenytoin levels may be further altered by severe renal failure (CrCl<10 ml/min). Consult pharmacy for renal or therapeutic dosing questions. Heparinized plasma. 10/24/2004 4:07 EDT 10/24/2004 4:07 EDT Hilton Álvarez MD CHEMISTRY & BLOOD GAS [facility]DE [facility] Final Result Performing Organization Address [facility] de Phone Number [facility] [address] [place] [address] * SODIUM (10/24/2004 4:07 EDT) Sodium 138 136 - 145 mEq/L [facility] Comment:Heparinized plasma. 10/24/2004 4:07 EDT 10/24/2004 4:07 EDT Hilton Álvarez MD CHEMISTRY & BLOOD GAS ORDE RIDDHI Final Result Performing Organization Address [facility] de Phone Number [facility] [address] [place] [address] * (ABNORMAL) CREATININE (10/24/2004 4:07 EDT) Creatinine 0.5(L) 0.6 - 1.2 mg/dl [facility] Comment:Heparinized plasma. 10/24/2004 4:07 EDT 10/24/2004 4:07 EDT Hilton Álvarez MD HISTORICAL LAB FOR SQ LOAD Final Result Performing Organization Address [facility] Co de Phone Number [facility] [address] [place] [address] * (ABNORMAL) HEMAGRAM AND DIFFERENTIAL (10/24/2004 4:07 EDT) WBC 7.77 4.5 - 13.0 K/cmm [facility] RBC 3.02(L) 4.50 - 5.30 M/cmm [facility] Hemoglobin 8.7(L) 13.0 - 16.0 gm/dl [facility] HCT 25.0(L) 37.0 - 49.0 % [facility] MCV 83 78 - 98 fl [facility] MCH 28.7 pg [facility] MCHC 34.7 gm/dl [facility] PLT 341(H) 156 - 312 K/cmm [facility] RDW-CV 16.4 % [facility] % Neutrophils 74.2 % [facility] % Lymphocytes 16.4 % [facility] % Monocytes 6.1 % [facility] % Eosinophils 2.1 % [facility] % Basophils 1.2 % [facility] ABS Neutrophils 5.77 K/cmm [facility] ABS Lymphs 1.27 K/cmm [facility] ABS Monocytes 0.48 K/cmm [facility] ABS Eosinophils 0.16 K/cmm [facility] ABS Basophils 0.09 K/cmm [facility] Type of Diff: Automated TRUE [facility] 10/24/2004 4:07 EDT 10/24/2004 4:07 EDT us Hilton Álvarez MD PACKAGES & DNA PROBE ORDER LYNDSEY Final Result [facility] [address] [place] [address] * BUN (10/24/2004 4:07 EDT) BUN 15 8 - 21 mg/dl [facility] Comment:Heparinized plasma. 10/24/2004 4:07 EDT 10/24/2004 4:07 EDT us Hilton Álvarez MD CHEMISTRY & BLOOD GAS ORDE RABREBECA Final Result [facility] [address] [place] [address] * (ABNORMAL) ELECTROLYTES (10/24/2004 2:23 EDT) Sodium 140 136 - 145 mEq/L [facility] Comment:Heparinized plasma. Potassium 3.4(L) 3.6 - 5.2 mEq/L [facility] Comment:Heparinized plasma. Chloride 104 96 - 110 mEq/L [facility] Comment:Heparinized plasma. CO2 27 24 - 32 mEq/L [facility] Comment:Heparinized plasma. 10/24/2004 2:23 EDT 10/24/2004 2:23 EDT Hilton Álvarez MD CHEMISTRY & BLOOD GAS ORDE RABLES Final Result Performing Organization Address [facility] Co de Phone Number [facility] [address] [place] [address] * SODIUM (10/24/2004 2:12 EDT) Sodium 136 - 145 mEq/L [facility] 10/24/2004 2:12 EDT 10/24/2004 2:22 EDT Hilton Álvarez MD CHEMISTRY & BLOOD GAS ORDE RABLES Final Result Performing Organization Address [facility] Co de Phone Number [facility] [address] [place] [address] * SODIUM (10/24/2004 0:47 EDT) Sodium 141 136 - 145 mEq/L [facility] Comment:Heparinized plasma. 10/24/2004 0:47 EDT 10/24/2004 0:47 EDT Hilton Álvarez MD CHEMISTRY & BLOOD GAS ORDE RABLES Final Result Performing Organization Address City/[facility]/ZIP Co de Phone Number [facility] [address] [place] [address] * (ABNORMAL) GLUCOSE, GLUCOMETER (10/24/2004 0:12 EDT) Glucose, Fingerstick 145(H) 70 - 110 mg/dl [facility] Interface Developer ID [id number] Test Performed by Nursing Services [facility] 10/24/2004 0:12 EDT 10/25/2004 0:24 EDT us Hilton Álvarez MD CHEMISTRY & BLOOD GAS ORDE RIDDHI Final Result Performing Organization Address City/[facility] Co de Phone Number [facility] [address] [place] [address] * (ABNORMAL) ELECTROLYTES (10/23/2004 22:07 EDT) Sodium 141 136 - 145 mEq/L [facility] Potassium 2.9(LL) 3.6 - 5.2 mEq/L [facility] Chloride 107 96 - 110 mEq/L [facility] CO2 27 24 - 32 mEq/L [facility] 10/23/2004 22:0 7 EDT 10/23/2004 22:07 EDT Hilton Álvarez MD CHEMISTRY & BLOOD GAS ORDE RIDDHI Final Result Performing Organization Address [facility] de Phone Number [facility] [address] [place] [address] * (ABNORMAL) SODIUM (10/23/2004 20:02 EDT) Sodium 146(H) 136 - 145 mEq/L [facility] 10/23/2004 20:0 2 EDT 10/23/2004 20:02 EDT us Hilton Álvarez MD CHEMISTRY & BLOOD GAS ORDEmerald HANNON Final Result Performing Organization Address [facility] Co de Phone Number [facility] [address] [place] [address] * (ABNORMAL) ELECTROLYTES (10/23/2004 17:40 EDT) Sodium 146(H) 136 - 145 mEq/L [facility] Potassium 3.2(L) 3.6 - 5.2 mEq/L [facility] Chloride 110 96 - 110 mEq/L [facility] CO2 28 24 - 32 mEq/L [facility] 10/23/2004 17:4 0 EDT 10/23/2004 17:40 EDT us Hilton Álvarez MD CHEMISTRY & BLOOD GAS HERMES HANNON Final Result [facility] [address] [place] [address] * CT HEAD WO CONTRAST (10/23/2004 15:29 [...] since previous, as is the sinus thickening. /[facility] Narrative 03/06/2009 9:26 EDT H/O AKINETIC MUTISM [...] interval resolution of intracranial edema. Procedure Note AlsoJose Armando ferris MD - 03/06/2009 H/O AKINETIC MUTISM S/P [...] since previous, as is the sinus thickening. /[facility] Hilton Álvarez MD IMG CT ORDERABLES Final Re sult * PHENYTOIN (10/23/2004 14:07 EDT) [facility] Phenytoin 4.1 ug/ml [facility] Comment:Slight hemolysis Calculated Phenytoin 6.8 ug/ml [facility] Comment: Calculated phenytoin is adjusted for albumin level. Phenytoin levels may be further altered by severe renal failure (CrCl<10 ml/min). Consult pharmacy for renal or therapeutic dosing questions. Slight hemolysis 10/23/2004 14:0 7 EDT 10/23/2004 14:07 EDT Hilton Álvarez MD CHEMISTRY & BLOOD GAS [facility] Final Result [facility] [address] [place] [address] * (ABNORMAL) SODIUM (10/23/2004 14:07 EDT) Sodium 146(H) 136 - 145 mEq/L [facility] Comment:Slight hemolysis 10/23/2004 14:0 7 EDT 10/23/2004 14:07 EDT Hilton Álvarez MD CHEMISTRY & BLOOD GAS ORDE RABREBECA Final Result Performing Organization Address [facility] Co de Phone Number [facility] [address] [place] [address] * (ABNORMAL) ELECTROLYTES (10/23/2004 11:54 EDT) Sodium [...] Hilton Álvarez MD CHEMISTRY & BLOOD GAS ORDE RABREBECA Final Result Performing Organization Address [facility] Co de Phone Number [facility] [address] [place] [address] * (ABNORMAL) SODIUM (10/23/2004 10:00 EDT) Sodium 149(H) 136 - 145 mEq/L [facility] Comment:Heparinized plasma. 10/23/2004 10:0 0 EDT 10/23/2004 10:00 EDT Hilton Álvarez MD CHEMISTRY & BLOOD GAS ORDE RABLES Final Result Performing Organization Address [facility] Co de Phone Number [facility] [address] [place] [address] * (ABNORMAL) ELECTROLYTES (10/23/2004 7:51 EDT) Sodium 149(H) 136 - 145 mEq/L [facility] Potassium 3.3(L) 3.6 - 5.2 mEq/L [facility] Chloride 116(H) 96 - 110 mEq/L [facility] CO2 26 24 - 32 mEq/L [facility] 10/23/2004 7:51 EDT 10/23/2004 7:51 EDT Hilton Álvarez MD CHEMISTRY & BLOOD GAS ORDE RABLES Final Result Performing Organization Address [facility] Co de Phone Number [facility] [address] [place] [address] * (ABNORMAL) SODIUM (10/23/2004 6:00 EDT) Sodium 150(H) 136 - 145 mEq/L [facility] 10/23/2004 6:00 EDT 10/23/2004 6:21 EDT Hilton Álvarez MD CHEMISTRY & BLOOD GAS ORDE RABLES Final Result Performing Organization Address [facility] Phone Number [facility] [address] [place] [address] * (ABNORMAL) ELECTROLYTES (10/23/2004 4:00 EDT) Sodium 150(H) 136 - 145 mEq/L [facility] Potassium 3.6 3.6 - 5.2 mEq/L [facility] Chloride 118(H) 96 - 110 mEq/L [facility] CO2 26 24 - 32 mEq/L [facility] 10/23/2004 4:00 EDT 10/23/2004 4:17 EDT Hilton Álvarez MD CHEMISTRY & BLOOD GAS ORDE RABLES Final Result Performing Organization Address [facility] Co de Phone Number [facility] [address] [place] [address] * (ABNORMAL) CREATININE (10/23/2004 4:00 EDT) Creatinine 0.5(L) 0.6 - 1.2 mg/dl [facility] 10/23/2004 4:00 EDT 10/23/2004 4:17 EDT Hilton Álvarez MD HISTORICAL LAB FOR SQ LOAD Final Result Performing Organization Address City/[facility]/ZIP Co de Phone Number [facility] [address] [place] [address] * (ABNORMAL) HEMAGRAM AND DIFFERENTIAL (10/23/2004 4:00 EDT) Pathologist [facility] WBC 7.67 4.5 - 13.0 K/cmm [facility] RBC 3.17(L) 4.50 - 5.30 M/cmm [facility] Hemoglobin 9.1(L) 13.0 - 16.0 gm/dl [facility] HCT 26.5(L) 37.0 - 49.0 % [facility] MCV 84 78 - 98 fl [facility] MCH 28.5 pg [facility] MCHC 34.1 gm/dl [facility] PLT 366(H) 156 - 312 K/cmm [facility] RDW-CV 16.6 % [facility] Neutrophils 78.0 % [facility] Lymphocytes 16.0 % [facility] Monocytes 2.0 % [facility] Basophils 4.0 % [facility] ABS Neutrophils 5.98 K/cmm [facility] ABS Lymphs 1.23 K/cmm [facility] ABS Monocytes 0.15 K/cmm [facility] ABS Basophils 0.31 K/cmm [facility] RBC Morphology 1+ Anisocytosis 1+ Microcytes [facility] Type of Diff: Manual [facility] 10/23/2004 4:00 EDT 10/23/2004 4:17 EDT Hilton Álvarez MD PACKAGES & DNA PROBE ORDER LYNDSEY Final Result Performing Organization Address City/[facility]/ZIP Co de Phone Number [facility] [address] [place] [address] * BUN (10/23/2004 4:00 EDT) BUN 16 8 - 21 mg/dl [facility] 10/23/2004 4:00 EDT 10/23/2004 4:17 EDT Hilton Álvarez MD CHEMISTRY & BLOOD GAS ORDE RABLES Final Result Performing Organization Address [facility] de Phone Number [facility] [address] [place] [address] * (ABNORMAL) SODIUM (10/23/2004 2:00 EDT) Sodium 153(H) 136 - 145 mEq/L [facility] 10/23/2004 2:00 EDT 10/23/2004 2:13 EDT Hilton Álvarez MD CHEMISTRY & BLOOD GAS ORDE RABLES Final Result Performing Organization Address [facility] de Phone Number [facility] [address] [place] [address] * (ABNORMAL) ELECTROLYTES (10/23/2004 0:00 EDT) Sodium 151(H) 136 - 145 mEq/L [facility] Potassium 3.9 3.6 - 5.2 mEq/L [facility] Chloride 117(H) 96 - 110 mEq/L [facility] CO2 27 24 - 32 mEq/L [facility] 10/23/2004 10/23/2004 0:3 8 EDT Hilton Álvarez MD CHEMISTRY & BLOOD GAS ORDE RABLES Final Result Performing Organization Address [facility] de Phone Number [facility] [address] [place] [address] * (ABNORMAL) SODIUM (10/22/2004 21:59 EDT) Sodium 149(H) 136 - 145 mEq/L [facility] 10/22/2004 21:5 9 EDT 10/22/2004 21:59 EDT Hilton Álvarez MD CHEMISTRY & BLOOD GAS ORDE RABLES Final Result Performing Organization Address [facility] de Phone Number [facility] [address] [place] [address] * (ABNORMAL) ELECTROLYTES (10/22/2004 20:23 EDT) Sodium 151(H) 136 - 145 mEq/L [facility] Potassium 3.8 3.6 - 5.2 mEq/L [facility] Chloride 117(H) 96 - 110 mEq/L [facility] CO2 28 24 - 32 mEq/L [facility] 10/22/2004 20:2 3 EDT 10/22/2004 20:23 EDT Hilton Álvarez MD CHEMISTRY & BLOOD GAS ORDE RABLES Final Result Performing Organization Address [facility] de Phone Number [facility] [address] [place] [address] * (ABNORMAL) SODIUM (10/22/2004 18:05 EDT) Sodium 147(H) 136 - 145 mEq/L [facility] 10/22/2004 18:0 5 EDT 10/22/2004 18:09 EDT Hilton Álvarez MD CHEMISTRY & BLOOD GAS ORDE RABLES Final Result Performing Organization Address [facility] de Phone Number [facility] [address] [place] [address] * (ABNORMAL) ELECTROLYTES (10/22/2004 16:40 EDT) Sodium 148(H) 136 - 145 mEq/L [facility] Potassium 3.4(L) 3.6 - 5.2 mEq/L [facility] Chloride 120(H) 96 - 110 mEq/L [facility] CO2 24 24 - 32 mEq/L [facility] 10/22/2004 16:4 0 EDT 10/22/2004 16:43 EDT Hilton Álvarez MD CHEMISTRY & BLOOD GAS ORDE RIDDHI Final Result Performing Organization Address [facility] Co de Phone Number [facility] [address] [place] [address] * TRIGLYCERIDE (10/22/2004 14:10 EDT) Triglycerides 164 34 - 165 mg/dl [facility] Comment:Heparinized plasma. 10/22/2004 14:1 0 EDT 10/22/2004 14:16 EDT Hilton Álvarez MD CHEMISTRY & BLOOD GAS ORDE RIDDHI Final Result Performing Organization Address [facility] Phone Number [facility] [address] [place] [address] * (ABNORMAL) SODIUM (10/22/2004 14:10 EDT) Sodium 147(H) 136 - 145 mEq/L [facility] Comment:Heparinized plasma. 10/22/2004 14:1 0 EDT 10/22/2004 14:16 EDT Hilton Álvarez MD CHEMISTRY & BLOOD GAS ORDE RIDDHI Final Result Performing Organization Address [facility] de Phone Number [facility] [address] [place] [address] * OSMOLALITY, URINE (10/22/2004 12:50 EDT) Osmolality, Ur 864 MOS/KG HOLLY GARCIA 10/22/2004 12:5 0 EDT 10/22/2004 12:52 EDT Hilton Álvarez MD URINALYSIS ORDERABLES Jacquie l Result Performing Organization Address [facility] Co de Phone Number [facility] [address] [place] [address] * SODIUM, URINE RANDOM (10/22/2004 12:50 EDT) Sodium, Ur 191.0 mEq/L [facility] 10/22/2004 12:5 0 EDT 10/22/2004 12:52 EDT Hilton Álvarez MD URINALYSIS ORDERABLES Jacquie l Result Performing Organization Address [facility] de Phone Number [facility] [address] [place] [address] * (ABNORMAL) GLUCOSE, GLUCOMETER (10/22/2004 12:16 EDT) Glucose, Fingerstick 124(H) 70 - 110 mg/dl [facility] Interface Developer ID [id number] Test Performed by Nursing Services [facility] 10/22/2004 12:1 6 EDT 10/23/2004 0:41 EDT Hilton Álvarez MD CHEMISTRY & BLOOD GAS ORDE RABLES Final Result Performing Organization Address [facility] Phone Number [facility] [address] [place] [address] * (ABNORMAL) T4 FREE (10/22/2004 12:05 EDT) Free T4 0.5(L) 0.8 - 1.8 ng/dl [facility] Comment:Test added by phone 10/22/2004 12:0 5 EDT 10/22/2004 14:04 EDT Hilton Álvarez MD CHEMISTRY & BLOOD GAS ORDE RABLES Final Result Performing Organization Address [facility] de Phone Number [facility] [address] [place] [address] * (ABNORMAL) ELECTROLYTES (10/22/2004 12:05 EDT) Sodium 147(H) 136 - 145 mEq/L [facility] Potassium 3.6 3.6 - 5.2 mEq/L [facility] Chloride 116(H) 96 - 110 mEq/L [facility] CO2 25 24 - 32 mEq/L [facility] 10/22/2004 12:0 5 EDT 10/22/2004 12:19 EDT us Hilton Álvarez MD CHEMISTRY & BLOOD GAS ORDE RABLES Final Result Performing Organization Address [facility] de Phone Number [facility] [address] [place] [address] * T4 FREE (10/22/2004 12:05 EDT) Free T4 Testing cannot be performed on heparinized samples. 0.8 - 1.8 ng/dl [facility] 10/22/2004 12:0 5 EDT 10/22/2004 12:19 EDT us Hilton Álvarez MD CHEMISTRY & BLOOD GAS ORDE RABLES Final Result Performing Organization Address [facility] de Phone Number [facility] [address] [place] [address] * TESTS ADDED BY PHONE (10/22/2004 12:05 EDT) Tests to be added FT4 [facility] 10/22/2004 12:0 5 EDT 10/22/2004 12:19 EDT Hilton Álvarez MD CHEMISTRY & BLOOD GAS ORDE RABLES Final Result Performing Organization Address [facility] de Phone Number [facility] [address] [place] [address] * (ABNORMAL) SODIUM (10/22/2004 10:00 EDT) Sodium 148(H) 136 - 145 mEq/L [facility] 10/22/2004 10:0 0 EDT 10/22/2004 10:03 EDT Hilton Álvarez MD CHEMISTRY & BLOOD GAS ORDE RABLES Final Result Performing Organization Address [facility] Co de Phone Number [facility] [address] [place] [address] * (ABNORMAL) ELECTROLYTES (10/22/2004 8:10 EDT) Sodium 147(H) 136 - 145 mEq/L [facility] Comment:Heparinized plasma. Potassium 3.6 3.6 - 5.2 mEq/L [facility] Comment:Heparinized plasma. Chloride 115(H) 96 - 110 mEq/L [facility] Comment:Heparinized plasma. CO2 25 24 - 32 mEq/L [facility] Comment:Heparinized plasma. 10/22/2004 8:10 EDT 10/22/2004 8:19 EDT Hilton Álvarez MD CHEMISTRY & BLOOD GAS ORDE RABREBECA Final Result Performing Organization Address [facility] de Phone Number [facility] [address] [place] [address] * T4 FREE (10/22/2004 8:10 EDT) Free T4 Testing cannot be performed on heparinized samples. 0.8 - 1.8 ng/dl [facility] 10/22/2004 8:10 EDT 10/22/2004 8:19 EDT Hilton Álvarez MD CHEMISTRY & BLOOD GAS ORDEmerald HANNON Final Result Performing Organization Address [facility] Co de Phone Number [facility] [address] [place] [address] * TESTS ADDED BY PHONE (10/22/2004 8:10 EDT) Tests to be added FT4 [facility] 10/22/2004 8:10 EDT 10/22/2004 8:19 EDT Hilton Álvarez MD CHEMISTRY & BLOOD GAS ORDE RIDDHI Final Result Performing Organization Address [facility] Co de Phone Number [facility] [address] [place] [address] * (ABNORMAL) SODIUM (10/22/2004 6:05 EDT) Sodium 149(H) 136 - 145 mEq/L [facility] 10/22/2004 6:05 EDT 10/22/2004 6:05 EDT Hilton Álvarez MD CHEMISTRY & BLOOD GAS ORDE RABLES Final Result Performing Organization Address [facility] Co de Phone Number [facility] [address] [place] [address] * TOTAL BILIRUBIN (10/22/2004 4:15 EDT) Bilirubin, Total <0.5 0.0 - 1.4 mg/dl [facility] Comment:Heparinized plasma. 10/22/2004 4:15 EDT 10/22/2004 4:15 EDT Hilton Álvarez MD CHEMISTRY & BLOOD GAS ORDE RABLES Final Result Performing Organization Address [facility] Co de Phone Number [facility] [address] [place] [address] * GLUCOSE, SERUM (10/22/2004 4:15 EDT) Glucose, Serum 104 70 - 110 mg/dl [facility] Comment:Heparinized plasma. 10/22/2004 4:15 EDT 10/22/2004 4:15 EDT Hilton Álvarez MD CHEMISTRY & BLOOD GAS ORDE RABLES Final Result Performing Organization Address [facility] Co de Phone Number [facility] [address] [place] [address] * (ABNORMAL) PHOSPHORUS (10/22/2004 4:15 EDT) Phosphorus 2.8(L) 2.9 - 5.4 mg/dl [facility] Comment:Heparinized plasma. 10/22/2004 4:15 EDT 10/22/2004 4:15 EDT Hilton Álvarez MD CHEMISTRY & BLOOD GAS ORDE RABREBECA Final Result Performing Organization Address [facility] Co de Phone Number [facility] [address] [place] [address] * MAGNESIUM (10/22/2004 4:15 EDT) Magnesium 2.6 1.7 - 2.8 mg/dl [facility] Comment:Heparinized plasma. 10/22/2004 4:15 EDT 10/22/2004 4:15 EDT Hilton Álvarez MD CHEMISTRY & BLOOD GAS ORDE RIDDHI Final Result Performing Organization Address [facility] de Phone Number [facility] [address] [place] [address] * (ABNORMAL) ELECTROLYTES (10/22/2004 4:15 EDT) Sodium 148(H) 136 - 145 mEq/L [facility] Comment:Heparinized plasma. Potassium 3.7 3.6 - 5.2 mEq/L [facility] Comment:Heparinized plasma. Chloride 115(H) 96 - 110 mEq/L [facility] Comment:Heparinized plasma. CO2 25 24 - 32 mEq/L [facility] Comment:Heparinized plasma. 10/22/2004 4:15 EDT 10/22/2004 4:15 EDT us Hilton Álvarez MD CHEMISTRY & BLOOD GAS ORDE RABREBECA Final Result Performing Organization Address [facility] Co de Phone Number [facility] [address] [place] [address] * (ABNORMAL) CREATININE (10/22/2004 4:15 EDT) Creatinine 0.5(L) 0.6 - 1.2 mg/dl [facility] Comment:Heparinized plasma. 10/22/2004 4:15 EDT 10/22/2004 4:15 EDT us Hilton Álvarez MD HISTORICAL LAB FOR SQ LOAD Final Result [facility] [address] [place] [address] * (ABNORMAL) HEMAGRAM AND DIFFERENTIAL (10/22/2004 4:15 EDT) WBC 6.26 4.5 - 13.0 K/cmm [facility] 10/22/2004 4:15 EDT 10/22/2004 4:15 EDT us Hilton Álvarez MD PACKAGES & DNA PROBE ORDER LYNDSEY Final Result [facility] [address] [place] [address] * (ABNORMAL) CALCIUM (10/22/2004 4:15 EDT) Calcium 7.6(L) 8.5 - 10.5 mg/dl [facility] Comment:Heparinized plasma. Calculated Calcium 9.0 8.5 - 10.5 mg/dl [facility] Comment:Heparinized plasma. 10/22/2004 4:15 EDT 10/22/2004 4:15 EDT Hilton Álvarez MD CHEMISTRY & BLOOD GAS ORDE RABLES Final Result Performing Organization Address [facility] Co de Phone Number [facility] [address] [place] [address] * BUN (10/22/2004 4:15 EDT) Pathologist [facility] BUN 15 8 - 21 mg/dl [facility] Comment:Heparinized plasma. 10/22/2004 4:15 EDT 10/22/2004 4:15 EDT Hilton Álvarez MD CHEMISTRY & BLOOD GAS ORDE RABLES Final Result Performing Organization Address [facility] de Phone Number [facility] [address] [place] [address] * (ABNORMAL) AST (10/22/2004 4:15 EDT) Pathologist [facility] AST 91(H) 16 - 38 U/L [facility] Comment: Sample retested, result confirmed Heparinized plasma. 10/22/2004 4:15 EDT 10/22/2004 4:15 EDT Hilton Álvarez MD CHEMISTRY & BLOOD GAS ORDE RABLES Final Result Performing Organization Address [facility] de Phone Number [facility] [address] [place] [address] * (ABNORMAL) ALT (10/22/2004 4:15 EDT) Pathologist [facility] ALT 222(H) 10 - 45 U/L [facility] Comment: Sample retested, result confirmed Heparinized plasma. 10/22/2004 4:15 EDT 10/22/2004 4:15 EDT Hilton Álvarez MD CHEMISTRY & BLOOD GAS ORDE RABLES Final Result Performing Organization Address [facility] Co de Phone Number [facility] [address] [place] [address] * (ABNORMAL) ALKALINE PHOSPHATASE (10/22/2004 4:15 EDT) Total Alkaline Phosphatase 92(L) 130 - 525 U/L [facility] Comment:Heparinized plasma. 10/22/2004 4:15 EDT 10/22/2004 4:15 EDT Hilton Álvarez MD CHEMISTRY & BLOOD GAS ORDE RABLES Final Result Performing Organization Address [facility] de Phone Number [facility] [address] [place] [address] * SODIUM (10/22/2004 1:58 EDT) Sodium 144 136 - 145 mEq/L [facility] Comment:Heparinized plasma. 10/22/2004 1:58 EDT 10/22/2004 1:58 EDT Hilton Álvarez MD CHEMISTRY & BLOOD GAS ORDE RABLES Final Result Performing Organization Address [facility] de Phone Number [facility] [address] [place] [address] * ELECTROLYTES (10/22/2004 0:05 EDT) Sodium 140 136 - 145 mEq/L [facility] Comment:Heparinized plasma. Potassium 3.8 3.6 - 5.2 mEq/L [facility] Comment:Heparinized plasma. Chloride 104 96 - 110 mEq/L [facility] Comment:Heparinized plasma. CO2 28 24 - 32 mEq/L [facility] Comment:Heparinized plasma. 10/22/2004 0:05 EDT 10/22/2004 0:05 EDT us Hilton Álvarez MD CHEMISTRY & BLOOD GAS ORDE RABLES Final Result Performing Organization Address [facility]/ZIP Co de Phone Number [facility] [address] [place] [address] * (ABNORMAL) GLUCOSE, GLUCOMETER (10/22/2004 0:01 EDT) Glucose, Fingerstick 132(H) 70 - 110 mg/dl [facility] Interface Developer ID [id number] Test Performed by Nursing Services [facility] 10/22/2004 0:01 EDT 10/23/2004 1:02 EDT us Hilton Álvarez MD CHEMISTRY & BLOOD GAS ORDE RABLES Final Result Performing Organization Address [facility] Co de Phone Number [facility] [address] [place] [address] * SODIUM (10/21/2004 22:04 EDT) Sodium 137 136 - 145 mEq/L [facility] 10/21/2004 22:0 4 EDT 10/21/2004 22:04 EDT us Hilton Álvarez MD CHEMISTRY & BLOOD GAS ORDE RABLES Final Result Performing Organization Address [facility] Co de Phone Number [facility] [address] [place] [address] * (ABNORMAL) GLUCOSE, GLUCOMETER (10/21/2004 21:59 EDT) Glucose, Fingerstick 121(H) 70 - 110 mg/dl [facility] Interface Developer ID [id number] Test Performed by Nursing Services [facility] 10/21/2004 21:5 9 EDT 10/22/2004 0:20 EDT us Hilton Álvarez MD CHEMISTRY & BLOOD GAS ORDE RABLES Final Result Performing Organization Address City/[facility]/ZIP Co de Phone Number [facility] [address] [place] [address] * (ABNORMAL) ELECTROLYTES (10/21/2004 19:46 EDT) Sodium 138 136 - 145 mEq/L [facility] Comment:Heparinized plasma. Potassium 3.4(L) 3.6 - 5.2 mEq/L [facility] Comment:Heparinized plasma. Chloride 104 96 - 110 mEq/L [facility] Comment:Heparinized plasma. CO2 26 24 - 32 mEq/L [facility] Comment:Heparinized plasma. 10/21/2004 19:4 6 EDT 10/21/2004 19:51 EDT Hilton Álvarez MD CHEMISTRY & BLOOD GAS ORDE RABLES Final Result Performing Organization Address [facility] Co de Phone Number [facility] [address] [place] [address] * (ABNORMAL) GLUCOSE, GLUCOMETER (10/21/2004 18:19 EDT) Glucose, Fingerstick 129(H) 70 - 110 mg/dl [facility] Interface Developer ID [id number] Test Performed by Nursing Services [facility] 10/21/2004 18:1 9 EDT 10/22/2004 0:26 EDT Hilton Álvarez MD CHEMISTRY & BLOOD GAS ORDE RABLES Final Result Performing Organization Address [facility] Co de Phone Number [facility] [address] [place] [address] * SODIUM (10/21/2004 18:18 EDT) Sodium 138 136 - 145 mEq/L [facility] 10/21/2004 18:1 8 EDT 10/21/2004 18:23 EDT Hilton Álvarez MD CHEMISTRY & BLOOD GAS ORDE RABREBECA Final Result Performing Organization Address [facility] Co de Phone Number [facility] [address] [place] [address] * ELECTROLYTES (10/21/2004 15:58 EDT) Sodium 138 136 - 145 mEq/L [facility] Comment:Heparinized plasma. Potassium 3.8 3.6 - 5.2 mEq/L [facility] Comment:Heparinized plasma. Chloride 101 96 - 110 mEq/L [facility] Comment:Heparinized plasma. CO2 28 24 - 32 mEq/L [facility] Comment:Heparinized plasma. 10/21/2004 15:5 8 EDT 10/21/2004 15:59 EDT Hilton Álvarez MD CHEMISTRY & BLOOD GAS ORDE RABLES Final Result Performing Organization Address [facility] Co de Phone Number [facility] [address] [place] [address] * (ABNORMAL) SODIUM (10/21/2004 14:13 EDT) Sodium 132(L) 136 - 145 mEq/L [facility] Comment:Heparinized plasma. 10/21/2004 14:1 3 EDT 10/21/2004 14:13 EDT Hilton Álvarez MD CHEMISTRY & BLOOD GAS ORDE RABLES Final Result Performing Organization Address [facility] Co de Phone Number [facility] [address] [place] [address] * (ABNORMAL) GLUCOSE, GLUCOMETER (10/21/2004 14:07 EDT) Glucose, Fingerstick 116(H) 70 - 110 mg/dl [facility] Interface Developer ID [id number] Test Performed by Nursing Services [facility] 10/21/2004 14:0 7 EDT 10/22/2004 0:24 EDT Hilton Álvarez MD CHEMISTRY & BLOOD GAS ORDE RABLES Final Result Performing Organization Address [facility] Co de Phone Number [facility] [address] [place] [address] * (ABNORMAL) ELECTROLYTES (10/21/2004 12:00 EDT) Sodium 131(L) 136 - 145 mEq/L [facility] Potassium 4.0 3.6 - 5.2 mEq/L [facility] Chloride 98 96 - 110 mEq/L [facility] CO2 27 24 - 32 mEq/L [facility] 10/21/2004 12:0 0 EDT 10/21/2004 12:07 EDT Hilton Álvarez MD CHEMISTRY & BLOOD GAS ORDE RABREBECA Final Result Performing Organization Address City/[facility]/ZIP Co de Phone Number [facility] [address] [place] [address] * (ABNORMAL) SODIUM (10/21/2004 10:00 EDT) Sodium 133(L) 136 - 145 mEq/L [facility] Comment:Heparinized plasma. 10/21/2004 10:0 0 EDT 10/21/2004 10:05 EDT Hilton Álvarez MD CHEMISTRY & BLOOD GAS ORDE RIDDHI Final Result Performing Organization Address City/[facility]/ZIP Co de Phone Number [facility] [address] [place] [address] * (ABNORMAL) GLUCOSE, GLUCOMETER (10/21/2004 8:10 EDT) Glucose, Fingerstick 111(H) 70 - 110 mg/dl [facility] Interface Developer ID [id number] Test Performed by Nursing Services [facility] 10/21/2004 8:10 EDT 10/22/2004 0:22 EDT Hilton Álvarez MD CHEMISTRY & BLOOD GAS ORDE RABREBECA Final Result Performing Organization Address City/[facility]/ZIP Co de Phone Number [facility] [address] [place] [address] * (ABNORMAL) ELECTROLYTES (10/21/2004 8:00 EDT) Sodium 132(L) 136 - 145 mEq/L [facility] Comment:Heparinized plasma. Potassium 4.0 3.6 - 5.2 mEq/L [facility] Comment:Heparinized plasma. Chloride 98 96 - 110 mEq/L [facility] Comment:Heparinized plasma. CO2 29 24 - 32 mEq/L [facility] Comment:Heparinized plasma. 10/21/2004 8:00 EDT 10/21/2004 8:16 EDT Hilton Álvarez MD CHEMISTRY & BLOOD GAS ORDE RABLES Final Result Performing Organization Address [facility] Co de Phone Number [facility] [address] [place] [address] * (ABNORMAL) SODIUM (10/21/2004 6:05 EDT) Sodium 133(L) 136 - 145 mEq/L [facility] 10/21/2004 6:05 EDT 10/21/2004 6:05 EDT Hilton Álvarez MD CHEMISTRY & BLOOD GAS ORDE RABLES Final Result Performing Organization Address [facility] de Phone Number [facility] [address] [place] [address] * (ABNORMAL) GLUCOSE, GLUCOMETER (10/21/2004 4:06 EDT) Glucose, Fingerstick 123(H) 70 - 110 mg/dl [facility] Interface Developer ID [id number] Test Performed by Nursing Services [facility] 10/21/2004 4:06 EDT 10/22/2004 0:11 EDT Hilton Álvarez MD CHEMISTRY & BLOOD GAS ORDE RABLES Final Result Performing Organization Address [facility] Co de Phone Number [facility] [address] [place] [address] * (ABNORMAL) ELECTROLYTES (10/21/2004 4:06 EDT) Sodium 133(L) 136 - 145 mEq/L [facility] Potassium 4.0 3.6 - 5.2 mEq/L [facility] Chloride 98 96 - 110 mEq/L [facility] CO2 28 24 - 32 mEq/L [facility] 10/21/2004 4:06 EDT 10/21/2004 4:06 EDT Hilton Álvarez MD CHEMISTRY & BLOOD GAS ORDE RABLES Final Result Performing Organization Address [facility] Co de Phone Number [facility] [address] [place] [address] * CREATININE (10/21/2004 4:06 EDT) Pathologist [facility] Creatinine 0.7 0.6 - 1.2 mg/dl [facility] 10/21/2004 4:06 EDT 10/21/2004 4:06 EDT Hilton Álvarez MD HISTORICAL LAB FOR SQ LOAD Final Result Performing Organization Address [facility] de Phone Number [facility] [address] [place] [address] * (ABNORMAL) HEMAGRAM AND DIFFERENTIAL (10/21/2004 4:06 EDT) WBC 10.25 4.5 - 13.0 K/cmm [facility] RBC 3.52(L) 4.50 - 5.30 M/cmm [facility] Hemoglobin 10.1(L) 13.0 - 16.0 gm/dl [facility] HCT 29.0(L) 37.0 - 49.0 % [facility] MCV 83 78 - 98 fl [facility] MCH 28.8 pg [facility] MCHC 34.8 gm/dl [facility] PLT 415(H) 156 - 312 K/cmm [facility] RDW-CV 16.0 % [facility] Neutrophils 66.0 % [facility] Lymphocytes 29.0 % [facility] Monocytes 2.0 % [facility] Basophils 1.0 % [facility] % Metamyelocytes 2.0 % [facility] ABS Neutrophils 6.76 K/cmm [facility] Lymphs 2.97 K/cmm [facility] ABS Monocytes 0.21 K/cmm [facility] Basophils 0.10 K/cmm [facility] ABS Metamyelocytes 0.21 K/cmm [facility] RBC Morphology 1+ Anisocytosis 1+ Poikilocytosis 1+ Microcytes 1+ Teardrop cells [facility] WBC Morphology 1+ Smudge cells [facility] Type of Diff: Manual [facility] 10/21/2004 4:06 EDT 10/21/2004 4:06 EDT Hilton Álvarez MD PACKAGES & DNA PROBE ORDER LYNDSEY Final Result Performing Organization Address [facility] de Phone Number [facility] [address] [place] [address] * BUN (10/21/2004 4:06 EDT) BUN 13 8 - 21 mg/dl [facility] 10/21/2004 4:06 EDT 10/21/2004 4:06 EDT Hilton Álvarez MD CHEMISTRY & BLOOD GAS ORDE RABLES Final Result Performing Organization Address [facility] de Phone Number [facility] [address] [place] [address] * (ABNORMAL) SODIUM (10/21/2004 2:01 EDT) Sodium 134(L) 136 - 145 mEq/L [facility] 10/21/2004 2:01 EDT 10/21/2004 2:01 EDT Hilton Álvarez MD CHEMISTRY & BLOOD GAS ORDE RABLES Final Result Performing Organization Address [facility] Co de Phone Number [facility] [address] [place] [address] * SODIUM (10/20/2004 22:07 EDT) Sodium 140 136 - 145 mEq/L [facility] 10/20/2004 22:0 7 EDT 10/20/2004 22:07 EDT Hilton Álvarez MD CHEMISTRY & BLOOD GAS ORDE RABREBECA Final Result Performing Organization Address [facility] Co de Phone Number [facility] [address] [place] [address] * (ABNORMAL) GLUCOSE, GLUCOMETER (10/20/2004 22:00 EDT) Glucose, Fingerstick 151(H) 70 - 110 mg/dl [facility] Interface Developer ID [id number] Test Performed by Nursing Services [facility] 10/20/2004 22:0 0 EDT 10/20/2004 23:06 EDT Hilton Álvarez MD CHEMISTRY & BLOOD GAS ORDE RABREBECA Final Result Performing Organization Address [facility] de Phone Number [facility] [address] [place] [address] * ELECTROLYTES (10/20/2004 20:08 EDT) Sodium 136 136 - 145 mEq/L [facility] Potassium 3.8 3.6 - 5.2 mEq/L [facility] Chloride 101 96 - 110 mEq/L [facility] CO2 28 24 - 32 mEq/L [facility] 10/20/2004 20:0 8 EDT 10/20/2004 20:08 EDT Hilton Álvarez MD CHEMISTRY & BLOOD GAS ORDE RABLES Final Result Performing Organization Address [facility] de Phone Number [facility] [address] [place] [address] * (ABNORMAL) GLUCOSE, GLUCOMETER (10/20/2004 20:05 EDT) Glucose, Fingerstick 219(H) 70 - 110 mg/dl [facility] Interface Developer ID [id number] Test Performed by Nursing Services [facility] 10/20/2004 20:0 5 EDT 10/20/2004 21:43 EDT Hilton Álvarez MD CHEMISTRY & BLOOD GAS ORDE RABLES Final Result Performing Organization Address [facility] de Phone Number [facility] [address] [place] [address] * SODIUM (10/20/2004 18:00 EDT) Sodium 140 136 - 145 mEq/L [facility] 10/20/2004 18:0 0 EDT 10/20/2004 18:07 EDT Hilton Álvarez MD CHEMISTRY & BLOOD GAS ORDE RABLES Final Result Performing Organization Address [facility] Phone Number [facility] [address] [place] [address] * (ABNORMAL) ELECTROLYTES (10/20/2004 16:00 EDT) Sodium 141 136 - 145 mEq/L [facility] Comment:Heparinized plasma. Potassium 3.2(L) 3.6 - 5.2 mEq/L [facility] Comment:Heparinized plasma. Chloride 110 96 - 110 mEq/L [facility] Comment:Heparinized plasma. CO2 25 24 - 32 mEq/L [facility] Comment:Heparinized plasma. 10/20/2004 16:0 0 EDT 10/20/2004 16:22 EDT Hilton Álvarez MD CHEMISTRY & BLOOD GAS ORDE RABLES Final Result Performing Organization Address [facility] de Phone Number [facility] [address] [place] [address] * SODIUM (10/20/2004 14:00 EDT) Sodium 140 136 - 145 mEq/L [facility] 10/20/2004 14:0 0 EDT 10/20/2004 14:14 EDT Hilton Álvarez MD CHEMISTRY & BLOOD GAS ORDE RIDDHI Final Result Performing Organization Address [facility] de Phone Number [facility] [address] [place] [address] * (ABNORMAL) ELECTROLYTES (10/20/2004 12:42 EDT) Sodium 141 136 - 145 mEq/L [facility] Potassium 3.4(L) 3.6 - 5.2 mEq/L [facility] Chloride 109 96 - 110 mEq/L [facility] CO2 26 24 - 32 mEq/L [facility] 10/20/2004 12:4 2 EDT 10/20/2004 12:42 EDT Hilton Álvarez MD CHEMISTRY & BLOOD GAS ORDE RIDDHI Final Result Performing Organization Address [facility] de Phone Number [facility] [address] [place] [address] * SODIUM (10/20/2004 10:00 EDT) Sodium 143 136 - 145 mEq/L [facility] 10/20/2004 10:0 0 EDT 10/20/2004 10:28 EDT Hilton Álvarez MD CHEMISTRY & BLOOD GAS ORDE RABREBECA Final Result Performing Organization Address [facility] de Phone Number [facility] [address] [place] [address] * (ABNORMAL) ELECTROLYTES (10/20/2004 8:21 EDT) Sodium 144 136 - 145 mEq/L [facility] Comment:Heparinized plasma. Potassium 3.0(L) 3.6 - 5.2 mEq/L [facility] Comment:Heparinized plasma. Chloride 114(H) 96 - 110 mEq/L [facility] Comment:Heparinized plasma. CO2 25 24 - 32 mEq/L [facility] Comment:Heparinized plasma. 10/20/2004 8:21 EDT 10/20/2004 8:21 EDT Hilton Álvarez MD CHEMISTRY & BLOOD GAS HERMES HANNON Final Result Performing Organization Address [facility] Co de Phone Number [facility] [address] [place] [address] * SODIUM (10/20/2004 6:06 EDT) Sodium 143 136 - 145 mEq/L [facility] 10/20/2004 6:06 EDT 10/20/2004 6:06 EDT us Hilton Álvarez MD CHEMISTRY & BLOOD GAS HERMES HANNON Final Result Performing Organization Address [facility] de Phone Number [facility] [address] [place] [address] * TOTAL & DIRECT BILIRUBIN (10/20/2004 4:00 EDT) Conjugated Bilirubin 0.0 0.0 - 0.3 mg/dl [facility] Unconjugated Bilirubin 0.3 0.1 - 1.1 mg/dl [facility] Bilirubin, Total <0.5 0.0 - 1.4 mg/dl [facility] 10/20/2004 4:00 EDT 10/20/2004 4:00 EDT us Hilton Álvarez MD CHEMISTRY & BLOOD GAS ORDEmerald HANNON Final Result Performing Organization Address [facility] Co de Phone Number [facility] [address] [place] [address] * TOTAL BILIRUBIN (10/20/2004 4:00 EDT) Bilirubin, Total 0.0 - 1.4 mg/dl [facility] 10/20/2004 4:00 EDT 10/20/2004 4:00 EDT Hilton Álvarez MD CHEMISTRY & BLOOD GAS ORDE RABLES Final Result Performing Organization Address City/[facility]/ZIP Co de Phone Number [facility] [address] [place] [address] * PHOSPHORUS (10/20/2004 4:00 EDT) Phosphorus 3.4 2.9 - 5.4 mg/dl [facility] 10/20/2004 4:00 EDT 10/20/2004 4:00 EDT Hilton Álvarez MD CHEMISTRY & BLOOD GAS ORDE RABLES Final Result Performing Organization Address [facility] Co de Phone Number [facility] [address] [place] [address] * MAGNESIUM (10/20/2004 4:00 EDT) Magnesium 2.5 1.7 - 2.8 mg/dl [facility] 10/20/2004 4:00 EDT 10/20/2004 4:00 EDT Hilton Álvarez MD CHEMISTRY & BLOOD GAS ORDE RABLES Final Result Performing Organization Address [facility] de Phone Number [facility] [address] [place] [address] * (ABNORMAL) ELECTROLYTES (10/20/2004 4:00 EDT) Sodium 145 136 - 145 mEq/L [facility] Potassium 3.8 3.6 - 5.2 mEq/L [facility] Chloride 111(H) 96 - 110 mEq/L [facility] CO2 28 24 - 32 mEq/L [facility] 10/20/2004 4:00 EDT 10/20/2004 4:00 EDT Hilton Álvarez MD CHEMISTRY & BLOOD GAS ORDE RABLES Final Result Performing Organization Address City/[facility] Co de Phone Number [facility] [address] [place] [address] * CREATININE (10/20/2004 4:00 EDT) Creatinine 0.7 0.6 - 1.2 mg/dl [facility] 10/20/2004 4:00 EDT 10/20/2004 4:00 EDT Hilton Álvarez MD HISTORICAL LAB FOR SQ LOAD Final Result Performing Organization Address City/[facility]/ZIP Co de Phone Number [facility] [address] [place] [id number] * (ABNORMAL) HEMAGRAM AND DIFFERENTIAL (10/20/2004 4:00 EDT) WBC 9.88 4.5 - 13.0 K/cmm [facility] RBC 3.37(L) 4.50 - 5.30 M/cmm [facility] Hemoglobin 9.6(L) 13.0 - 16.0 gm/dl [facility] HCT 27.8(L) 37.0 - 49.0 % [facility] MCV 83 78 - 98 fl [facility] MCH 28.4 pg [facility] MCHC 34.4 gm/dl [facility] PLT 376(H) 156 - 312 K/cmm [facility] RDW-CV 15.7 % [facility] % Neutrophils 72.7 % [facility] % Lymphocytes 18.6 % [facility] % Monocytes 7.2 % [facility] % Eosinophils 0.8 % [facility] % Basophils 0.7 % [facility] ABS Neutrophils 7.19 K/cmm [facility] ABS Lymphs 1.84 K/cmm [facility] ABS Monocytes 0.71 K/cmm [facility] ABS Eosinophils 0.07 K/cmm [facility] ABS Basophils 0.07 K/cmm [facility] Type of Diff: Automated [facility] 10/20/2004 4:00 EDT 10/20/2004 4:00 EDT Hilton Álvarez MD PACKAGES & DNA PROBE ORDER LYNDSEY Final Result [facility] [address] [place] [address] * (ABNORMAL) CALCIUM (10/20/2004 4:00 EDT) Calcium 7.9(L) 8.5 - 10.5 mg/dl [facility] Calculated Calcium 9.4 8.5 - 10.5 mg/dl [facility] 10/20/2004 4:00 EDT 10/20/2004 4:00 EDT Hilton Álvarez MD CHEMISTRY & BLOOD GAS ORDE RABLES Final Result Performing Organization Address [facility] Co de Phone Number [facility] [address] [place] [address] * BUN (10/20/2004 4:00 EDT) BUN 15 8 - 21 mg/dl [facility] 10/20/2004 4:00 EDT 10/20/2004 4:00 EDT Hilton Álvarez MD CHEMISTRY & BLOOD GAS ORDE RABLES Final Result Performing Organization Address [facility] Co de Phone Number [facility] [address] [place] [address] * AST (10/20/2004 4:00 EDT) AST 27 16 - 38 U/L [facility] 10/20/2004 4:00 EDT 10/20/2004 4:00 EDT Hilton Álvarez MD CHEMISTRY & BLOOD GAS ORDE RABLES Final Result Performing Organization Address [facility] Co de Phone Number [facility] [address] [place] [address] * (ABNORMAL) ALT (10/20/2004 4:00 EDT) ALT 50(H) 10 - 45 U/L [facility] 10/20/2004 4:00 EDT 10/20/2004 4:00 EDT us Hilton Álvarez MD CHEMISTRY & BLOOD GAS ORDE RABREBECA Final Result Performing Organization Address [facility] Co de Phone Number [facility] [address] [place] [address] * (ABNORMAL) ALKALINE PHOSPHATASE (10/20/2004 4:00 EDT) Total Alkaline Phosphatase 91(L) 130 - 525 U/L [facility] 10/20/2004 4:00 EDT 10/20/2004 4:00 EDT us Hilton Álvarez MD CHEMISTRY & BLOOD GAS ORDE RABREBECA Final Result Performing Organization Address [facility] de Phone Number [facility] [address] [place] [address] * (ABNORMAL) GLUCOSE, GLUCOMETER (10/20/2004 3:53 EDT) Glucose, Fingerstick 183(H) 70 - 110 mg/dl [facility] Interface Developer ID [id number] Test Performed by Nursing Services [facility] 10/20/2004 3:53 EDT 10/21/2004 0:38 EDT Hilton Álvarez MD CHEMISTRY & BLOOD GAS ORDE RABREBECA Final Result Performing Organization Address [facility] de Phone Number [facility] [address] [place] [address] * SODIUM (10/20/2004 2:07 EDT) Sodium 143 136 - 145 mEq/L [facility] 10/20/2004 2:07 EDT 10/20/2004 2:07 EDT us Hilton Álvarez MD CHEMISTRY & BLOOD GAS ORDE RABREBECA Final Result Performing Organization Address [facility] Co de Phone Number [facility] [address] [place] [address] * (ABNORMAL) ELECTROLYTES (10/20/2004 0:08 EDT) Sodium 145 136 - 145 mEq/L [facility] Potassium 3.7 3.6 - 5.2 mEq/L [facility] Chloride 113(H) 96 - 110 mEq/L [facility] CO2 28 24 - 32 mEq/L [facility] 10/20/2004 0:08 EDT 10/20/2004 0:08 EDT Hilton Álvarez MD CHEMISTRY & BLOOD GAS ORDE RABLES Final Result Performing Organization Address [facility] de Phone Number [facility] [address] [place] [address] * (ABNORMAL) ELECTROLYTES (10/20/2004 0:04 EDT) Sodium 135(L) 136 - 145 mEq/L [facility] Potassium 4.0 3.6 - 5.2 mEq/L [facility] Chloride 101 96 - 110 mEq/L [facility] CO2 25 24 - 32 mEq/L [facility] 10/20/2004 0:04 EDT 10/21/2004 0:04 EDT Hilton Álvarez MD CHEMISTRY & BLOOD GAS ORDE RABLES Final Result Performing Organization Address [facility] de Phone Number [facility] [address] [place] [address] * (ABNORMAL) GLUCOSE, GLUCOMETER (10/20/2004 0:02 EDT) Glucose, Fingerstick 139(H) 70 - 110 mg/dl [facility] Interface Developer ID [id number] Test Performed by Nursing Services [facility] 10/20/2004 0:02 EDT 10/20/2004 21:53 EDT Hilton Álvarez MD CHEMISTRY & BLOOD GAS ORDE RABLES Final Result Performing Organization Address City/[facility] Co de Phone Number [facility] [address] [place] [address] * (ABNORMAL) SODIUM (10/19/2004 22:12 EDT) Sodium 147(H) 136 - 145 mEq/L [facility] 10/19/2004 22:1 2 EDT 10/19/2004 22:12 EDT Hilton Álvarez MD CHEMISTRY & BLOOD GAS ORDEmerald HANNON Final Result Performing Organization Address [facility] de Phone Number [facility] [address] [place] [address] * (ABNORMAL) ELECTROLYTES (10/19/2004 20:00 EDT) Sodium 149(H) 136 - 145 mEq/L [facility] Comment:Heparinized plasma. Potassium 3.7 3.6 - 5.2 mEq/L [facility] Comment:Heparinized plasma. Chloride 116(H) 96 - 110 mEq/L [facility] Comment:Heparinized plasma. CO2 27 24 - 32 mEq/L [facility] Comment:Heparinized plasma. 10/19/2004 20:0 0 EDT 10/19/2004 20:00 EDT us Hilton Álvarez MD CHEMISTRY & BLOOD GAS ORDE RABREBECA Final Result Performing Organization Address [facility] de Phone Number [facility] [address] [place] [address] * (ABNORMAL) GLUCOSE, GLUCOMETER (10/19/2004 19:55 EDT) Glucose, Fingerstick 165(H) 70 - 110 mg/dl [facility] Interface Developer ID [id number] Test Performed by Nursing Services [facility] 10/19/2004 19:5 5 EDT 10/19/2004 23:17 EDT Hilton Álvarez MD CHEMISTRY & BLOOD GAS ORDE RABREBECA Final Result Performing Organization Address [facility]/State/ZIP Co de Phone Number [facility] [address] [place] [address] * (ABNORMAL) SODIUM (10/19/2004 18:27 EDT) Sodium 149(H) 136 - 145 mEq/L [facility] 10/19/2004 18:2 7 EDT 10/19/2004 18:27 EDT Hilton Álvarez MD CHEMISTRY & BLOOD GAS ORDE RABLES Final Result Performing Organization Address [facility] Co de Phone Number [facility] [address] [place] [address] * GLUCOSE, SERUM (10/19/2004 16:52 EDT) Glucose, Serum 90 70 - 110 mg/dl [facility] 10/19/2004 16:5 2 EDT 10/19/2004 16:52 EDT Hilton Álvarez MD CHEMISTRY & BLOOD GAS ORDE RABLES Final Result Performing Organization Address [facility] de Phone Number [facility] [address] [place] [address] * (ABNORMAL) ELECTROLYTES (10/19/2004 16:52 EDT) Sodium 146(H) 136 - 145 mEq/L [facility] Potassium 3.9 3.6 - 5.2 mEq/L [facility] Chloride 115(H) 96 - 110 mEq/L [facility] CO2 25 24 - 32 mEq/L [facility] 10/19/2004 16:5 2 EDT 10/19/2004 16:52 EDT Hilton Álvarez MD CHEMISTRY & BLOOD GAS ORDE RABLES Final Result Performing Organization Address [facility] Co de Phone Number [facility] [address] [place] [address] * SODIUM (10/19/2004 14:25 EDT) Sodium 143 136 - 145 mEq/L [facility] 10/19/2004 14:2 5 EDT 10/19/2004 14:25 EDT Hilton Álvarez MD CHEMISTRY & BLOOD GAS ORDE RABLES Final Result Performing Organization Address [facility] Co de Phone Number [facility] [address] [place] [address] * ELECTROLYTES (10/19/2004 12:09 EDT) Sodium 139 136 - 145 mEq/L [facility] Comment:Heparinized plasma. Potassium 3.9 3.6 - 5.2 mEq/L [facility] Comment:Heparinized plasma. Chloride 102 96 - 110 mEq/L [facility] Comment:Heparinized plasma. CO2 27 24 - 32 mEq/L [facility] Comment:Heparinized plasma. 10/19/2004 12:0 9 EDT 10/19/2004 12:09 EDT Hilton Álvarez MD CHEMISTRY & BLOOD GAS ORDE RABLES Final Result Performing Organization Address [facility] Co de Phone Number [facility] [address] [place] [address] * SODIUM (10/19/2004 10:17 EDT) Sodium 139 136 - 145 mEq/L [facility] Comment:Heparinized plasma. 10/19/2004 10:1 7 EDT 10/19/2004 10:17 EDT Hilton Álvarez MD CHEMISTRY & BLOOD GAS ORDE RABLES Final Result Performing Organization Address City/[facility] Co de Phone Number [facility] [address] [place] [address] * ELECTROLYTES (10/19/2004 8:20 EDT) Sodium 137 136 - 145 mEq/L [facility] Potassium 4.2 3.6 - 5.2 mEq/L [facility] Chloride 103 96 - 110 mEq/L [facility] CO2 25 24 - 32 mEq/L [facility] 10/19/2004 8:20 EDT 10/19/2004 8:20 EDT Hilton Álvarez MD CHEMISTRY & BLOOD GAS ORDE RIDDHI Final Result Performing Organization Address [facility] de Phone Number [facility] [address] [place] [address] * OSMOLALITY, URINE (10/19/2004 6:54 EDT) Osmolality, Ur 874 MOS/KG [facility] 10/19/2004 6:54 EDT 10/19/2004 6:54 EDT Hilton Álvarez MD URINALYSIS ORDERABLES Jacquie l Result Performing Organization Address [facility] Phone Number [facility] [address] [place] [address] * SODIUM, URINE RANDOM (10/19/2004 6:54 EDT) Sodium, Ur 201.0 mEq/L [facility] 10/19/2004 6:54 EDT 10/19/2004 6:54 EDT Hilton Álvarez MD URINALYSIS ORDERABLES Jacquie l Result Performing Organization Address [facility] de Phone Number [facility] [address] [place] [address] * GLUCOSE, SERUM (10/19/2004 6:21 EDT) Glucose, Serum 81 70 - 110 mg/dl [facility] Comment:Heparinized plasma. 10/19/2004 6:21 EDT 10/19/2004 6:21 EDT Hilton Álvarez MD CHEMISTRY & BLOOD GAS ORDE RABREBECA Final Result Performing Organization Address [facility] Co de Phone Number [facility] [address] [place] [address] * OSMOLALITY (10/19/2004 6:21 EDT) Pathologist [facility] Osmolality Cintia 285 MOS/KG [facility]I [facility] 10/19/2004 6:21 EDT 10/19/2004 6:21 EDT Hilton Álvarez MD CHEMISTRY & BLOOD GAS ORDE RABLES Final Result Performing Organization Address [facility] de Phone Number [facility] [address] [place] [address] * (ABNORMAL) ELECTROLYTES (10/19/2004 6:21 EDT) [facility] Sodium 137 136 - 145 mEq/L [facility] Comment:Heparinized plasma. Potassium 3.9 3.6 - 5.2 mEq/L [facility] Comment:Heparinized plasma. Chloride 110 96 - 110 mEq/L [facility] Comment: Sample retested, result confirmed Heparinized plasma. CO2 20(L) 24 - 32 mEq/L [facility] Comment:Heparinized plasma. 10/19/2004 6:21 EDT 10/19/2004 6:21 EDT Hilton Álvarez MD CHEMISTRY & BLOOD GAS ORDE RABLES Final Result Performing Organization Address [facility] de Phone Number [facility] [address] [place] [address] * (ABNORMAL) GLUCOSE, SERUM (10/19/2004 4:25 EDT) Pathologist [facility] Glucose, Serum 60(L) 70 - 110 mg/dl [facility] Comment:Heparinized plasma. 10/19/2004 4:25 EDT 10/19/2004 4:25 EDT Hilton Álvarez MD CHEMISTRY & BLOOD GAS ORDE RABLES Final Result Performing Organization Address [facility] Co de Phone Number [facility] [address] [place] [address] * (ABNORMAL) ELECTROLYTES (10/19/2004 4:25 EDT) Sodium 138 136 - 145 mEq/L [facility] Comment:Heparinized plasma. Potassium 2.8(LL) 3.6 - 5.2 mEq/L [facility] Comment: Sample retested, result confirmed Heparinized plasma. Chloride 122(H) 96 - 110 mEq/L [facility] Comment: Sample retested, result confirmed Heparinized plasma. CO2 16(L) 24 - 32 mEq/L [facility] Comment:Heparinized plasma. 10/19/2004 4:25 EDT 10/19/2004 4:25 EDT Hilton Álvarez MD CHEMISTRY & BLOOD GAS ORDEmerald HANNON Final Result Performing Organization Address [facility] Co de Phone Number [facility] [address] [place] [address] * TOTAL & DIRECT BILIRUBIN (10/19/2004 2:10 EDT) Conjugated Bilirubin 0.0 0.0 - 0.3 mg/dl [facility] Unconjugated Bilirubin 0.3 0.1 - 1.1 mg/dl [facility] Bilirubin, Total <0.5 0.0 - 1.4 mg/dl [facility] 10/19/2004 2:10 EDT 10/19/2004 2:10 EDT Hilton Álvarez MD CHEMISTRY & BLOOD GAS ORDEmerald HANNON Final Result Performing Organization Address City/[facility] Co de Phone Number [facility] [address] [place] [address] * PHOSPHORUS (10/19/2004 2:10 EDT) Phosphorus 4.4 2.9 - 5.4 mg/dl [facility] 10/19/2004 2:10 EDT 10/19/2004 2:10 EDT Hilton Álvarez MD CHEMISTRY & BLOOD GAS ORDE RABLES Final Result Performing Organization Address City/[facility] Co de Phone Number [facility] [address] [place] [address] * MAGNESIUM (10/19/2004 2:10 EDT) Pathologist [facility] Magnesium 2.4 1.7 - 2.8 mg/dl [facility] 10/19/2004 2:10 EDT 10/19/2004 2:10 EDT us Hilton Álvarez MD CHEMISTRY & BLOOD GAS ORDE RABREBECA Final Result Performing Organization Address [facility] de Phone Number [facility] [address] [place] [address] * ELECTROLYTES (10/19/2004 2:10 EDT) Sodium 137 136 - 145 mEq/L [facility] Potassium 4.1 3.6 - 5.2 mEq/L [facility] Chloride 101 96 - 110 mEq/L [facility] Comment:Sample retested, res ult confirmed CO2 26 24 - 32 mEq/L [facility] 10/19/2004 2:10 EDT 10/19/2004 2:10 EDT Hilton Álvarez MD CHEMISTRY & BLOOD GAS ORDE RABREBECA Final Result Performing Organization Address [facility] de Phone Number [facility] [address] [place] [address] * CREATININE (10/19/2004 2:10 EDT) Pathologist [facility] Creatinine 0.7 0.6 - 1.2 mg/dl [facility] 10/19/2004 2:10 EDT 10/19/2004 2:10 EDT Hilton Álvarez MD HISTORICAL LAB FOR SQ LOAD Final Result Performing Organization Address [facility] Co de Phone Number [facility] [address] [place] [address] * (ABNORMAL) HEMAGRAM AND DIFFERENTIAL (10/19/2004 2:10 EDT) WBC 11.74 4.5 - 13.0 K/cmm [facility] RBC 3.81(L) 4.50 - 5.30 M/cmm [facility] Hemoglobin 10.7(L) 13.0 - 16.0 gm/dl [facility] HCT 31.2(L) 37.0 - 49.0 % [facility] MCV 82 78 - 98 fl [facility] MCH 28.1 pg [facility] MCHC 34.4 gm/dl [facility] PLT 375(H) 156 - 312 K/cmm [facility] RDW-CV 15.5 % [facility] Neutrophils 79.0 % [facility] Lymphocytes 20.0 % [facility] Monocytes 1.0 % [facility] ABS Neutrophils 9.27 K/cmm [facility] ABS Lymphs 2.35 K/cmm [facility] ABS Monocytes 0.12 K/cmm [facility] RBC Morphology 1+ Anisocytosis 1+ Polychromasia 1+ Microcytes [facility] Type of Diff: Manual TRUE [facility] 10/19/2004 2:10 EDT 10/19/2004 2:10 EDT us Hilton Álvarez MD PACKAGES & DNA PROBE ORDER LYNDSEY Final Result Performing Organization Address [facility] Co de Phone Number [facility] [address] [place] [address] * (ABNORMAL) CALCIUM (10/19/2004 2:10 EDT) Calcium 8.0(L) 8.5 - 10.5 mg/dl [facility] Calculated Calcium 8.8 8.5 - 10.5 mg/dl [facility] 10/19/2004 2:10 EDT 10/19/2004 2:10 EDT Hilton Álvarez MD CHEMISTRY & BLOOD GAS ORDE [facility] Final Result [facility] [address] [place] [address] * BUN (10/19/2004 2:10 EDT) BUN 14 8 - 21 mg/dl [facility] 10/19/2004 2:10 EDT 10/19/2004 2:10 EDT us Hilton Álvarez MD CHEMISTRY & BLOOD GAS ORDE RABLES Final Result Performing Organization Address [facility] Co de Phone Number [facility] [address] [place] [address] * AST (10/19/2004 2:10 EDT) Pathologist [facility] AST 27 16 - 38 U/L [facility] 10/19/2004 2:10 EDT 10/19/2004 2:10 EDT us Hilton Álvarez MD CHEMISTRY & BLOOD GAS ORDE RABLES Final Result Performing Organization Address [facility] de Phone Number [facility] [address] [place] [address] * (ABNORMAL) ALT (10/19/2004 2:10 EDT) ALT 50(H) 10 - 45 U/L [facility] 10/19/2004 2:10 EDT 10/19/2004 2:10 EDT us Hilton Álvarez MD CHEMISTRY & BLOOD GAS ORDE RABLES Final Result Performing Organization Address [facility] de Phone Number [facility] [address] [place] [address] * (ABNORMAL) ALKALINE PHOSPHATASE (10/19/2004 2:10 EDT) Total Alkaline Phosphatase 103(L) 130 - 525 U/L [facility] 10/19/2004 2:10 EDT 10/19/2004 2:10 EDT Hilton Álvarez MD CHEMISTRY & BLOOD GAS ORDE RABLES Final Result Performing Organization Address [facility] de Phone Number [facility] [address] [place] [address] * (ABNORMAL) ELECTROLYTES (10/19/2004 0:12 EDT) Sodium [...] Hilton Álvarez MD CHEMISTRY & BLOOD GAS ORDE RABLES Final Result Performing Organization Address [facility] de Phone Number [facility] [address] [place] [address] * SODIUM (10/18/2004 22:11 EDT) Sodium 137 136 - 145 mEq/L [facility] 10/18/2004 22:1 1 EDT 10/18/2004 22:11 EDT Hilton Álvarez MD CHEMISTRY & BLOOD GAS ORDE RABLES Final Result Performing Organization Address [facility] Co de Phone Number [facility] [address] [place] [address] * (ABNORMAL) ELECTROLYTES (10/18/2004 20:13 EDT) Sodium 132(L) 136 - 145 mEq/L [facility] Potassium 3.5(L) 3.6 - 5.2 mEq/L [facility] Chloride 96 96 - 110 mEq/L [facility] CO2 25 24 - 32 mEq/L [facility] 10/18/2004 20:1 3 EDT 10/18/2004 20:13 EDT Hilton Álvarez MD CHEMISTRY & BLOOD GAS ORDE RABLES Final Result Performing Organization Address [facility] de Phone Number [facility] [address] [place] [address] * GLUCOSE, GLUCOMETER (10/18/2004 20:06 EDT) Glucose, Fingerstick 89 70 - 110 mg/dl [facility] Interface Developer ID [id number] Test Performed by Nursing Services [facility] 10/18/2004 20:0 6 EDT 10/19/2004 0:23 EDT Hilton Álvarez MD CHEMISTRY & BLOOD GAS ORDE RABLES Final Result Performing Organization Address [facility] de Phone Number [facility] [address] [place] [address] * (ABNORMAL) SODIUM (10/18/2004 18:15 EDT) Sodium 128(L) 136 - 145 mEq/L [facility] 10/18/2004 18:1 5 EDT 10/18/2004 18:15 EDT Hilton Álvarez MD CHEMISTRY & BLOOD GAS ORDE RABLES Final Result Performing Organization Address [facility] de Phone Number [facility] [address] [place] [address] * (ABNORMAL) ELECTROLYTES (10/18/2004 16:08 EDT) Sodium 128(L) 136 - 145 mEq/L [facility] Potassium 3.7 3.6 - 5.2 mEq/L [facility] Chloride 93(L) 96 - 110 mEq/L [facility] CO2 27 24 - 32 mEq/L [facility] 10/18/2004 16:0 8 EDT 10/18/2004 16:08 EDT us Hilton Álvarez MD CHEMISTRY & BLOOD GAS ORDE RABLES Final Result Performing Organization Address [facility] Co de Phone Number [facility] [address] [place] [address] * GLUCOSE, GLUCOMETER (10/18/2004 16:00 EDT) Glucose, Fingerstick 106 70 - 110 mg/dl [facility] Interface Developer ID [id number] Test Performed by Nursing Services [facility] 10/18/2004 16:0 0 EDT 10/19/2004 0:23 EDT Hilton Álvarez MD CHEMISTRY & BLOOD GAS ORDE RABLES Final Result Performing Organization Address [facility] de Phone Number [facility] [address] [place] [address] * (ABNORMAL) SODIUM (10/18/2004 14:37 EDT) Sodium 128(L) 136 - 145 mEq/L [facility] 10/18/2004 14:3 7 EDT 10/18/2004 14:37 EDT Hilton Álvarez MD CHEMISTRY & BLOOD GAS ORDE RABLES Final Result Performing Organization Address [facility] de Phone Number [facility] [address] [place] [address] * GLUCOSE, GLUCOMETER (10/18/2004 11:59 EDT) Glucose, Fingerstick 98 70 - 110 mg/dl [facility] Interface Developer ID [id number] Test Performed by Nursing Services [facility] 10/18/2004 11:5 9 EDT 10/19/2004 0:22 EDT us Hilton Álvarez MD CHEMISTRY & BLOOD GAS ORDE RABLES Final Result Performing Organization Address [facility]/ZIP Co de Phone Number [facility] [address] [place] [address] * (ABNORMAL) ELECTROLYTES (10/18/2004 11:56 EDT) Sodium 127(L) 136 - 145 mEq/L [facility] Potassium 3.9 3.6 - 5.2 mEq/L [facility] Chloride 92(L) 96 - 110 mEq/L [facility] CO2 29 24 - 32 mEq/L [facility] 10/18/2004 11:5 6 EDT 10/18/2004 11:56 EDT Hilton Álvarez MD CHEMISTRY & BLOOD GAS ORDE RABLES Final Result Performing Organization Address [facility] de Phone Number [facility] [address] [place] [address] * (ABNORMAL) GLUCOSE, GLUCOMETER (10/18/2004 10:07 EDT) Glucose, Fingerstick 130(H) 70 - 110 mg/dl [facility] Interface Developer ID [id number] Test Performed by Nursing Services [facility] 10/18/2004 10:0 7 EDT 10/19/2004 0:21 EDT Hilton Álvarez MD CHEMISTRY & BLOOD GAS ORDE RABLES Final Result Performing Organization Address [facility] Co de Phone Number [facility] [address] [place] [address] * (ABNORMAL) SODIUM (10/18/2004 10:06 EDT) Sodium 128(L) 136 - 145 mEq/L [facility] Comment:Heparinized plasma. 10/18/2004 10:0 6 EDT 10/18/2004 10:06 EDT Hilton Álvarez MD CHEMISTRY & BLOOD GAS ORDE RABLES Final Result Performing Organization Address [facility] Co de Phone Number [facility] [address] [place] [address] * (ABNORMAL) ELECTROLYTES (10/18/2004 8:18 EDT) Sodium 130(L) 136 - 145 mEq/L [facility] Potassium 3.6 3.6 - 5.2 mEq/L [facility] Chloride 92(L) 96 - 110 mEq/L [facility] CO2 30 24 - 32 mEq/L [facility] 10/18/2004 8:18 EDT 10/18/2004 8:18 EDT Hilton Álvarez MD CHEMISTRY & BLOOD GAS ORDE RABLES Final Result Performing Organization Address [facility] Co de Phone Number [facility] [address] [place] [address] * UA REFLEX (10/18/2004 7:59 EDT) Pathologist [facility] [place] UA Billing Microscopic not indicated. [facility] 10/18/2004 7:59 EDT 10/18/2004 7:59 EDT Hilton Álvarez MD URINALYSIS ORDERABLES Jacquie l Result Performing Organization Address [facility] Co de Phone Number [facility] [address] [place] [address] * URINALYSIS (10/18/2004 7:59 EDT) Pathologist [facility] [place] Color, UA Yellow [facility] Clarity, UA Cloudy [facility] Glucose, UA Norm NORM [facility] Bilirubin, UA Neg NEG [facility] Ketones, UA Neg NEG [facility] Specific [place], Urine 1.020 1.005 - 1.02 [facility] Blood, UA Neg NEG [facility] pH, UA 8.0 5.0 - 9.0 [facility] Protein, UA Neg NEG [facility] Urobilinogen, UA Norm NORM mg/dL [facility] Nitrite, UA Neg NEG [facility] Leuk Esterase Neg NEG [facility] 10/18/2004 7:59 EDT 10/18/2004 7:59 EDT Hilton Álvarez MD URINALYSIS ORDERABLES Jacquie l Result Performing Organization Address [facility] Co de Phone Number [facility] [address] [place] [address] * CULTURE IF UA POSITIVE (10/18/2004 7:59 EDT) Culture if Indicated Culture not indicated by urinalysis results. [facility] 10/18/2004 7:59 EDT 10/18/2004 7:59 EDT Hilton Álvarez MD MICROBIOLOGY - GENERAL ORD ERABLES Final Result Performing Organization Address [facility] de Phone Number [facility] [address] [place] [address] * (ABNORMAL) SODIUM (10/18/2004 6:38 EDT) Pathologist [facility] Sodium 130(L) 136 - 145 mEq/L [facility] Comment:Heparinized plasma. 10/18/2004 6:38 EDT 10/18/2004 6:38 EDT Hilton Álvarez MD CHEMISTRY & BLOOD GAS ORDE RABREBECA Final Result Performing Organization Address [facility] de Phone Number [facility] [address] [place] [address] * TOTAL & DIRECT BILIRUBIN (10/18/2004 4:23 EDT) Conjugated Bilirubin 0.0 0.0 - 0.3 mg/dl [facility] Unconjugated Bilirubin 0.2 0.1 - 1.1 mg/dl [facility] Bilirubin, Total <0.5 0.0 - 1.4 mg/dl [facility] 10/18/2004 4:23 EDT 10/18/2004 4:23 EDT Hilton Álvarez MD CHEMISTRY & BLOOD GAS ORDE RABREBECA Final Result Performing Organization Address [facility]/ZIP Co de Phone Number [facility] [address] [place] [address] * PHOSPHORUS (10/18/2004 4:23 EDT) Phosphorus 3.3 2.9 - 5.4 mg/dl [facility] 10/18/2004 4:23 EDT 10/18/2004 4:23 EDT Hilton Álvarez MD CHEMISTRY & BLOOD GAS ORDE RABLES Final Result Performing Organization Address City/State/[facility] Co de Phone Number [facility] [address] [place] [address] * MAGNESIUM (10/18/2004 4:23 EDT) Magnesium 2.1 1.7 - 2.8 mg/dl [facility] 10/18/2004 4:23 EDT 10/18/2004 4:23 EDT Hilton Álvarez MD CHEMISTRY & BLOOD GAS ORDE RABLES Final Result Performing Organization Address [facility] Co de Phone Number [facility] [address] [place] [address] * (ABNORMAL) ELECTROLYTES (10/18/2004 4:23 EDT) Pathologist [facility] [place] Sodium 132(L) 136 - 145 mEq/L [facility] Potassium 3.6 3.6 - 5.2 mEq/L [facility] Chloride 94(L) 96 - 110 mEq/L [facility] CO2 30 24 - 32 mEq/L [facility] 10/18/2004 4:23 EDT 10/18/2004 4:23 EDT Hilton Álvarez MD CHEMISTRY & BLOOD GAS ORDE RABLES Final Result Performing Organization Address [facility]/ZIP Co de Phone Number [facility] [address] [place] [address] * CREATININE (10/18/2004 4:23 EDT) Pathologist [facility] Creatinine 0.6 0.6 - 1.2 mg/dl [facility] 10/18/2004 4:23 EDT 10/18/2004 4:23 EDT us Hilton Álvarez MD HISTORICAL LAB FOR SQ LOAD Final Result Performing Organization Address City/[facility]/ZIP Co de Phone Number [facility] [address] [place] [address] * (ABNORMAL) HEMAGRAM AND DIFFERENTIAL (10/18/2004 4:23 EDT) WBC 10.96 4.5 - 13.0 K/cmm [facility] RBC 3.35(L) 4.50 - 5.30 M/cmm [facility] Hemoglobin 9.6(L) 13.0 - 16.0 gm/dl [facility] HCT 27.2(L) 37.0 - 49.0 % [facility] MCV 81 78 - 98 fl [facility] MCH 28.7 pg [facility] MCHC 35.4 gm/dl [facility] PLT 362(H) 156 - 312 K/cmm [facility] RDW-CV 14.8 % [facility] [...] EDT Hilton Álvarez MD PACKAGES & DNA PROBE ORDER LYNDSEY Final Result Performing Organization Address City/[facility]/ZIP Co de Phone Number [facility] [address] [place] [address] * (ABNORMAL) CALCIUM (10/18/2004 4:23 EDT) Calcium 7.9(L) 8.5 - 10.5 mg/dl [facility] Calculated Calcium 9.0 8.5 - 10.5 mg/dl [facility] 10/18/2004 4:23 EDT 10/18/2004 4:23 EDT Hliton Álvarez MD CHEMISTRY & BLOOD GAS ORDE RABLES Final Result [facility] [address] [place] [address] * BUN (10/18/2004 4:23 EDT) BUN 16 8 - 21 mg/dl [facility] 10/18/2004 4:23 EDT 10/18/2004 4:23 EDT Hilton Álvarez MD CHEMISTRY & BLOOD GAS ORDE RABLES Final Result [facility] [address] [place] [address] * AST (10/18/2004 4:23 EDT) AST 24 16 - 38 U/L [facility] 10/18/2004 4:23 EDT 10/18/2004 4:23 EDT Hilton Álvarez MD CHEMISTRY & BLOOD GAS ORDE RABLES Final Result [facility] [address] [place] [address] * (ABNORMAL) ALT (10/18/2004 4:23 EDT) ALT 55(H) 10 - 45 U/L [facility] 10/18/2004 4:23 EDT 10/18/2004 4:23 EDT us Hilton Álvarez MD CHEMISTRY & BLOOD GAS ORDE RABREBECA Final Result Performing Organization Address [facility]/State/ZIP Co de Phone Number [facility] [address] [place] [address] * (ABNORMAL) ALKALINE PHOSPHATASE (10/18/2004 4:23 EDT) Total Alkaline Phosphatase 100(L) 130 - 525 U/L [facility] 10/18/2004 4:23 EDT 10/18/2004 4:23 EDT us Hilton Álvarez MD CHEMISTRY & BLOOD GAS ORDE RABREBECA Final Result Performing Organization Address [facility] Co de Phone Number [facility] [address] [place] [address] * (ABNORMAL) SODIUM (10/18/2004 2:13 EDT) Sodium 132(L) 136 - 145 mEq/L [facility] 10/18/2004 2:13 EDT 10/18/2004 2:13 EDT Hilton Álvarez MD CHEMISTRY & BLOOD GAS ORDE RABREBECA Final Result Performing Organization Address [facility] Co de Phone Number [facility] [address] [place] [address] * (ABNORMAL) SODIUM (10/18/2004 1:00 EDT) Sodium 133(L) 136 - 145 mEq/L [facility] 10/18/2004 1:00 EDT 10/18/2004 1:00 EDT us Hilton Álvarez MD CHEMISTRY & BLOOD GAS ORDE RABREBECA Final Result Performing Organization Address [facility] Co de Phone Number [facility] [address] [place] [address] * (ABNORMAL) BLOOD GAS, EG6 ISTAT (10/18/2004 [...] [facility] Sample Type Venous [facility]ISHA [facility] automotive instructor ID [id number] Test Performed by Respiratory [facility] 10/18/2004 0:10 EDT 10/18/2004 0:06 EDT us Hilton Álvarez MD CHEMISTRY & BLOOD GAS HERMES HANNON Final Result Performing Organization Address City/[facility]/ZIP Co de Phone Number [facility] [address] [place] [address] * OSMOLALITY (10/18/2004 0:07 EDT) [facility] Osmolality Cintia 287 MOS/KG SHERI [facility] 10/18/2004 0:07 EDT 10/18/2004 0:07 EDT Hilton Álvarez MD CHEMISTRY & BLOOD GAS HERMES HANNON Final Result Performing Organization Address City/[facility]/ZIP Co de Phone Number [facility] [address] [place] [address] * (ABNORMAL) ELECTROLYTES (10/18/2004 0:07 EDT) [facility] Sodium 135(L) 136 - 145 mEq/L [facility] Potassium 3.5(L) 3.6 - 5.2 mEq/L [facility] Chloride 99 96 - 110 mEq/L [facility] CO2 27 24 - 32 mEq/L [facility] 10/18/2004 0:07 EDT 10/18/2004 0:07 EDT Hilton Álvarez MD CHEMISTRY & BLOOD GAS HERMES HANNON Final Result Performing Organization Address [facility] de Phone Number [facility] [address] [place] [address] * (ABNORMAL) GLUCOSE, GLUCOMETER (10/18/2004 0:06 EDT) Pathologist [facility] Glucose, Fingerstick 112(H) 70 - 110 mg/dl [facility] Interface Developer ID [id number] Test Performed by Nursing Services [facility] 10/18/2004 0:06 EDT 10/19/2004 0:19 EDT Hilton Álvarez MD CHEMISTRY & BLOOD GAS ORDEmerald HANNON Final Result Performing Organization Address [facility] Phone Number [facility] [address] [place] [address] * (ABNORMAL) ELECTROLYTES (10/17/2004 22:42 EDT) Sodium 125(L) 136 - 145 mEq/L [facility] Comment:Markedly lipemic Potassium 5.8(H) 3.6 - 5.2 mEq/L [facility] Comment:Markedly lipemic Chloride 92(L) 96 - 110 mEq/L [facility] Comment:Markedly lipemic CO2 24 24 - 32 mEq/L [facility] Comment:Markedly lipemic 10/17/2004 22:4 2 EDT 10/17/2004 22:42 EDT Hilton Álvarez MD CHEMISTRY & BLOOD GAS ORDEmerald HANNON Final Result Performing Organization Address [facility] de Phone Number [facility] [address] [place] [address] * OSMOLALITY (10/17/2004 21:34 EDT) Osmolality Cintia 342 MOS/KG SHER[facility] Comment:Markedly lipemic 10/17/2004 21:3 4 EDT 10/17/2004 21:34 EDT Hilton Álvarez MD CHEMISTRY & BLOOD GAS ORDEmerald HANNON Final Result Performing Organization Address [facility] de Phone Number [facility] [address] [place] [address] * (ABNORMAL) ELECTROLYTES (10/17/2004 21:34 EDT) Sodium 128(L) 136 - 145 mEq/L [facility] Comment: Sample retested, result confirmed Markedly lipemic Potassium 5.6(H) 3.6 - 5.2 mEq/L [facility] Comment: Sample retested, result confirmed Markedly lipemic Chloride 94(L) 96 - 110 mEq/L [facility] Comment: Sample retested, result confirmed Markedly lipemic CO2 25 24 - 32 mEq/L [facility] Comment: Sample retested, result confirmed Markedly lipemic 10/17/2004 21:3 4 EDT 10/17/2004 21:34 EDT Hilton Álvarez MD CHEMISTRY & BLOOD GAS HERMES HANNON Final Result Performing Organization Address [facility] de Phone Number [facility] [address] [place] [address] * OSMOLALITY (10/17/2004 15:50 EDT) Osmolality Cintia 296 MOS/KG SHERI [facility] 10/17/2004 15:5 0 EDT 10/17/2004 15:51 EDT Hilton Álvarez MD CHEMISTRY & BLOOD GAS HERMES HANNON Final Result Performing Organization Address [facility] Co de Phone Number [facility] [address] [place] [address] * (ABNORMAL) ELECTROLYTES (10/17/2004 15:50 EDT) Sodium 141 136 - 145 mEq/L [facility] Potassium 3.2(L) 3.6 - 5.2 mEq/L [facility] Chloride 108 96 - 110 mEq/L [facility] CO2 25 24 - 32 mEq/L [facility] 10/17/2004 15:5 0 EDT 10/17/2004 15:51 EDT Hilton Álvarez MD CHEMISTRY & BLOOD GAS ORDE RIDDHI Final Result Performing Organization Address [facility] de Phone Number [facility] [address] [place] [address] * OSMOLALITY, URINE (10/17/2004 11:36 EDT) Osmolality, Ur 532 MOS/KG HOLLY [facility] 10/17/2004 11:3 6 EDT 10/17/2004 11:37 EDT Hilton Álvarez MD URINALYSIS ORDERABLES Jacquie l Result Performing Organization Address [facility] Phone Number [facility] [address] [place] [address] * SODIUM, URINE RANDOM (10/17/2004 11:36 EDT) Sodium, Ur 199.0 mEq/L [facility] 10/17/2004 11:3 6 EDT 10/17/2004 11:37 EDT Hilton Álvarez MD URINALYSIS ORDERABLES Jacquie l Result Performing Organization Address [facility] de Phone Number [facility] [address] [place] [address] * OSMOLALITY (10/17/2004 11:35 EDT) Osmolality Cintia 305 MOS/KG [facility]I [facility] 10/17/2004 11:3 5 EDT 10/17/2004 11:36 EDT Hilton Álvarez MD CHEMISTRY & BLOOD GAS ORDEmerald HANNON Final Result [facility] [address] [place] [address] * (ABNORMAL) ELECTROLYTES (10/17/2004 11:35 EDT) Sodium 142 136 - 145 mEq/L [facility] Comment:Heparinized plasma. Potassium 3.1(L) 3.6 - 5.2 mEq/L [facility] Comment:Heparinized plasma. Chloride 116(H) 96 - 110 mEq/L [facility] Comment:Heparinized plasma. CO2 23(L) 24 - 32 mEq/L [facility] Comment:Heparinized plasma. 10/17/2004 11:3 5 EDT 10/17/2004 11:36 EDT us Hilton Álvarez MD CHEMISTRY & BLOOD GAS ORDEmerald [facility] Final Result Performing Organization Address City/State/[facility] Co de Phone Number [facility] [address] [place] [address] * CT HEAD WO CONTRAST (10/17/2004 11:04 [...] likely secondary to most recent surgery. /tns us Hilton Álvarez MD IMG CT ORDERABLES Final Re sult * IR CHANGE PICC (10/17/2004 11:00 EDT) [...] line to double-lumen. 2. Fluoroscopic guidance used. /[facility] Hilton Álvarez MD IMG IR ORDERABLES Final Re sult * OSMOLALITY, URINE (10/17/2004 8:00 EDT) Osmolality, Ur 209 MOS/KG HOLLY [facility] 10/17/2004 8:00 EDT 10/17/2004 8:04 EDT Hilton Álvarez MD URINALYSIS ORDERABLES Jacquie l Result Performing Organization Address [facility] de Phone Number [facility] [address] [address] * SODIUM, URINE RANDOM (10/17/2004 8:00 EDT) Sodium, Ur 66.0 mEq/L [facility] 10/17/2004 8:00 EDT 10/17/2004 8:04 EDT Hilton Álvarez MD URINALYSIS ORDERABLES Jacquie l Result Performing Organization Address [facility] de Phone Number [facility] [address] [place] [address] * OSMOLALITY (10/17/2004 8:00 EDT) Osmolality Cintia 304 MOS/KG SHERI [facility] 10/17/2004 8:00 EDT 10/17/2004 8:05 EDT us Hilton Álvarez MD CHEMISTRY & BLOOD GAS ORDE [facility] Final Result Performing Organization Address [facility] Co de Phone Number [facility] [address] [place] [address] * (ABNORMAL) ELECTROLYTES (10/17/2004 8:00 EDT) Sodium 143 136 - 145 mEq/L [facility] Potassium 3.6 3.6 - 5.2 mEq/L [facility] Chloride 111(H) 96 - 110 mEq/L [facility] CO2 26 24 - 32 mEq/L [facility] 10/17/2004 8:00 EDT 10/17/2004 8:05 EDT Hilton Álvarez MD CHEMISTRY & BLOOD GAS ORDE [facility] Final Result Performing Organization Address City/[facility]/ZIP Co de Phone Number [facility] [address] [place] [address] * SODIUM (10/17/2004 6:13 EDT) Sodium 142 136 - 145 mEq/L [facility] 10/17/2004 6:13 EDT 10/17/2004 6:13 EDT Hilton Álvarez MD CHEMISTRY & BLOOD GAS ORDE RABLES Final Result Performing Organization Address City/[facility] Co de Phone Number [facility] [address] [place] [address] * OSMOLALITY, URINE (10/17/2004 3:58 EDT) Osmolality, Ur 578 MOS/KG HOLLY [facility] 10/17/2004 3:58 EDT 10/17/2004 3:58 EDT Hilton Álvarez MD URINALYSIS ORDERABLES Jacquie l Result Performing Organization Address City/[facility] Co de Phone Number [facility] [address] [place] [address] * SODIUM, URINE RANDOM (10/17/2004 3:58 EDT) Sodium, Ur 175.0 mEq/L [facility] 10/17/2004 3:58 EDT 10/17/2004 3:58 EDT us Hilton Álvarez MD URINALYSIS ORDERABLES Jacquie l Result Performing Organization Address [facility] Co de Phone Number [facility] [address] [place] [address] * TOTAL BILIRUBIN (10/17/2004 3:57 EDT) Bilirubin, Total <0.5 0.0 - 1.4 mg/dl [facility] 10/17/2004 3:57 EDT 10/17/2004 3:57 EDT us Hilton Álvarez MD CHEMISTRY & BLOOD GAS ORDE RIDDHI Final Result Performing Organization Address [facility] Phone Number [facility] [address] [place] [address] * GLUCOSE, SERUM (10/17/2004 3:57 EDT) Glucose, Serum 96 70 - 110 mg/dl [facility] 10/17/2004 3:57 EDT 10/17/2004 3:57 EDT Hilton Álvarez MD CHEMISTRY & BLOOD GAS ORDE RIDDHI Final Result Performing Organization Address [facility] de Phone Number [facility] [address] [place] [address] * PTT (10/17/2004 3:57 EDT) PTT 26 23 - [address] [facility] Comment:Therapeutic Heparin range: 72-120 seconds 10/17/2004 3:57 EDT 10/17/2004 3:57 EDT us Hilton Álvarez MD HEMATOLOGY & PF4 ORDERABLE S Final Result Performing Organization Address [facility] Co de Phone Number [facility] [address] [place] [address] * (ABNORMAL) PROTIME (10/17/2004 3:57 EDT) Pathologist [facility] Pro Time 14.9(H) 12.3 - 14.7 secs [facility] I.N.R. 1.1 0.9 - 1.1 Ratio [facility] Comment: Moderate Intensity Coumadin INR = 2.0-3.0 Adjustments in anticoagulant therapy dose should be based upon the INR and NOT the Pro Time. 10/17/2004 3:57 EDT 10/17/2004 3:57 EDT Hilton Álvarez MD HEMATOLOGY & PF4 ORDERABLE S Final Result Performing Organization Address [facility] Co de Phone Number [facility] [address] [place] [address] * PHOSPHORUS (10/17/2004 3:57 EDT) [facility] Phosphorus 3.8 2.9 - 5.4 mg/dl [facility] 10/17/2004 3:57 EDT 10/17/2004 3:57 EDT Hilton Álvarez MD CHEMISTRY & BLOOD GAS ORDE RABLES Final Result Performing Organization Address [facility] de Phone Number [facility] [address] [place] [address] * OSMOLALITY (10/17/2004 3:57 EDT) [facility] Osmolality Cintia 296 MOS/KG SHERI GARCIA 10/17/2004 3:57 EDT 10/17/2004 3:57 EDT Hilton Álvarez MD CHEMISTRY & BLOOD GAS ORDE RABREBECA Final Result Performing Organization Address [facility] Co de Phone Number [facility] [address] [place] [address] * BILIRUBIN (10/17/2004 3:57 EDT) [facility] Conjugated Bilirubin 0.0 0.0 - 0.3 mg/dl [facility] Unconjugated Bilirubin 0.2 0.1 - 1.1 mg/dl [facility] Calculated Total Bilirubin 0.2 0.0 - 1.4 mg/dl [facility] 10/17/2004 3:57 EDT 10/17/2004 3:57 EDT Hilton Álvarez MD CHEMISTRY & BLOOD GAS ORDE RABLES Final Result Performing Organization Address City/[facility]/ZIP Co de Phone Number [facility] [address] [place] [address] * ELECTROLYTES (10/17/2004 3:57 EDT) Sodium 141 136 - 145 mEq/L [facility] Potassium 3.7 3.6 - 5.2 mEq/L [facility] Chloride 105 96 - 110 mEq/L [facility] CO2 28 24 - 32 mEq/L [facility] 10/17/2004 3:57 EDT 10/17/2004 3:57 EDT Hilton Álvarez MD CHEMISTRY & BLOOD GAS ORDE RABLES Final Result Performing Organization Address [facility] Co de Phone Number [facility] [address] [place] [address] * BILIRUBIN DIRECT/INDIRECT (10/17/2004 3:57 EDT) Conjugated Bilirubin 0.0 - 0.3 mg/dl [facility] Unconjugated Bilirubin 0.1 - 1.1 mg/dl [facility] 10/17/2004 3:57 EDT 10/17/2004 3:57 EDT Hliton Álvarez MD CHEMISTRY & BLOOD GAS ORDE RABLES Final Result Performing Organization Address City/[facility] Co de Phone Number [facility] [address] [place] [address] * CREATININE (10/17/2004 3:57 EDT) Creatinine 0.8 0.6 - 1.2 mg/dl [facility] 10/17/2004 3:57 EDT 10/17/2004 3:57 EDT us Hilton Álvarez MD HISTORICAL LAB FOR SQ LOAD Final Result Performing Organization Address City/[facility]/ZIP Co de Phone Number [facility] [address] [place] [address] * (ABNORMAL) HEMAGRAM AND DIFFERENTIAL (10/17/2004 3:57 [...] PLT 325(H) 156 - 312 K/cmm [facility] [...] of Diff: Automated [facility] 10/17/2004 3:57 EDT 10/17/2004 3:57 EDT us Hilton Álvarez MD PACKAGES & DNA PROBE ORDER LYNDSEY Final Result Performing Organization Address City/[facility]/ZIP Co de Phone Number [facility] [address] [place] [address] * (ABNORMAL) CALCIUM (10/17/2004 3:57 EDT) Calcium 7.9(L) 8.5 - 10.5 mg/dl [facility] Calculated Calcium 9.4 8.5 - 10.5 mg/dl [facility] 10/17/2004 3:57 EDT 10/17/2004 3:57 EDT us Hilton Álvarez MD CHEMISTRY & BLOOD GAS ORDE RABLES Final Result Performing Organization Address [facility] de Phone Number [facility] [address] [place] [address] * BUN (10/17/2004 3:57 EDT) BUN 17 8 - 21 mg/dl [facility] 10/17/2004 3:57 EDT 10/17/2004 3:57 EDT us Hilton Álvarez MD CHEMISTRY & BLOOD GAS ORDE RABLES Final Result Performing Organization Address [facility] de Phone Number [facility] [address] [place] [address] * AST (10/17/2004 3:57 EDT) AST 27 16 - 38 U/L [facility] 10/17/2004 3:57 EDT 10/17/2004 3:57 EDT Hilton Álvarez MD CHEMISTRY & BLOOD GAS ORDE RABLES Final Result Performing Organization Address [facility] de Phone Number [facility] [address] [place] [address] * (ABNORMAL) ALT (10/17/2004 3:57 EDT) ALT 59(H) 10 - 45 U/L [facility] 10/17/2004 3:57 EDT 10/17/2004 3:57 EDT Hilton Álvarez MD CHEMISTRY & BLOOD GAS ORDE RABLES Final Result Performing Organization Address [facility] Co de Phone Number [facility] [address] [place] [address] * (ABNORMAL) ALKALINE PHOSPHATASE (10/17/2004 3:57 EDT) [facility] Total Alkaline Phosphatase 91(L) 130 - 525 U/L [facility] 10/17/2004 3:57 EDT 10/17/2004 3:57 EDT Hilton Álvarez MD CHEMISTRY & BLOOD GAS ORDE RABREBECA Final Result Performing Organization Address [facility] de Phone Number [facility] [address] [place] [address] * SODIUM (10/17/2004 1:56 EDT) [facility] Sodium 141 136 - 145 mEq/L [facility] 10/17/2004 1:56 EDT 10/17/2004 1:56 EDT Hilton Álvarez MD CHEMISTRY & BLOOD GAS ORDE RABREBECA Final Result Performing Organization Address [facility] Phone Number [facility] [address] [place] [address] * OSMOLALITY, URINE (10/17/2004 0:10 EDT) [facility] Osmolality, Ur 620 MOS/KG [facility] 10/17/2004 0:10 EDT 10/17/2004 0:10 EDT Hilton Álvarez MD URINALYSIS ORDERABLES Jacquie l Result Performing Organization Address [facility] de Phone Number [facility] [address] [place] [address] * SODIUM, URINE RANDOM (10/17/2004 0:10 EDT) [facility] Sodium, Ur 214.0 mEq/L [facility] 10/17/2004 0:10 EDT 10/17/2004 0:10 EDT Hilton Álvarez MD URINALYSIS ORDERABLES Jacquie l Result Performing Organization Address [facility] Co de Phone Number [facility] [address] [place] [address] * OSMOLALITY (10/17/2004 0:09 EDT) Osmolality Cintia 295 MOS/KG MELONIENoe [facility] 10/17/2004 0:09 EDT 10/17/2004 0:09 EDT Hilton Álvarez MD CHEMISTRY & BLOOD GAS ORDE RABLES Final Result Performing Organization Address [facility] de Phone Number [facility] [address] [place] [address] * ELECTROLYTES (10/17/2004 0:09 EDT) Sodium 142 136 - 145 mEq/L [facility] Potassium 3.8 3.6 - 5.2 mEq/L [facility] Chloride 109 96 - 110 mEq/L [facility] CO2 28 24 - 32 mEq/L [facility] 10/17/2004 0:09 EDT 10/17/2004 0:09 EDT Hilton Álvarez MD CHEMISTRY & BLOOD GAS ORDE RABLES Final Result Performing Organization Address [facility] Co de Phone Number [facility] [address] [place] [address] * SODIUM (10/16/2004 21:56 EDT) Sodium 141 136 - 145 mEq/L [facility] 10/16/2004 21:5 6 EDT 10/16/2004 21:56 EDT Hilton Álvarez MD CHEMISTRY & BLOOD GAS ORDE RABLES Final Result Performing Organization Address [facility] Co de Phone Number [facility] [address] [place] [address] * SODIUM, URINE RANDOM (10/16/2004 20:15 EDT) Sodium, Ur 190.0 mEq/L [facility] 10/16/2004 20:1 5 EDT 10/16/2004 20:15 EDT Hilton Álvarez MD URINALYSIS ORDERABLES Jacquie l Result Performing Organization Address [facility] de Phone Number [facility] [address] [place] [address] * OSMOLALITY (10/16/2004 20:05 EDT) Osmolality Cintia 295 MOS/KG SHERI [facility] 10/16/2004 20:0 5 EDT 10/16/2004 20:41 EDT Hilton Álvarez MD CHEMISTRY & BLOOD GAS ORDE RABLES Final Result Performing Organization Address [facility] de Phone Number [facility] [address] [place] [address] * ELECTROLYTES (10/16/2004 20:05 EDT) Sodium 143 136 - 145 mEq/L [facility] Potassium 3.7 3.6 - 5.2 mEq/L [facility] Chloride 108 96 - 110 mEq/L [facility] CO2 29 24 - 32 mEq/L [facility] 10/16/2004 20:0 5 EDT 10/16/2004 20:41 EDT Hilton Álvarez MD CHEMISTRY & BLOOD GAS ORDE RABLES Final Result Performing Organization Address [facility] de Phone Number [facility] [address] [place] [address] * SODIUM (10/16/2004 18:07 EDT) Sodium 144 136 - 145 mEq/L [facility] 10/16/2004 18:0 7 EDT 10/16/2004 18:07 EDT Hilton Álvarez MD CHEMISTRY & BLOOD GAS ORDE RABREBECA Final Result Performing Organization Address [facility] Co de Phone Number [facility] [address] [place] [address] * OSMOLALITY, URINE (10/16/2004 16:27 EDT) Osmolality, Ur 338 MOS/KG [facility] 10/16/2004 16:2 7 EDT 10/16/2004 16:27 EDT Hilton Álvarez MD URINALYSIS ORDERABLES Jacquie l Result Performing Organization Address [facility] de Phone Number [facility] [address] [place] [address] * SODIUM, URINE RANDOM (10/16/2004 16:27 EDT) Sodium, Ur 100.0 mEq/L [facility] 10/16/2004 16:2 7 EDT 10/16/2004 16:27 EDT Hilton Álvarez MD URINALYSIS ORDERABLES Jacquie l Result Performing Organization Address [facility] de Phone Number [facility] [address] [place] [address] * GLUCOSE, SERUM (10/16/2004 16:27 EDT) Glucose, Serum 95 70 - 110 mg/dl [facility] 10/16/2004 16:2 7 EDT 10/16/2004 16:27 EDT Hilton Álvarez MD CHEMISTRY & BLOOD GAS ORDE RABLES Final Result Performing Organization Address [facility] Co de Phone Number [facility] [address] [place] [address] * OSMOLALITY (10/16/2004 16:27 EDT) Osmolality Cintia 297 MOS/KG [facility]I [facility] 10/16/2004 16:2 7 EDT 10/16/2004 16:27 EDT Hliton Álvarez MD CHEMISTRY & BLOOD GAS ORDE RABLES Final Result Performing Organization Address [facility] de Phone Number [facility] [address] [place] [address] * SODIUM (10/16/2004 16:27 EDT) Sodium 136 - 145 mEq/L [facility] 10/16/2004 16:2 7 EDT 10/16/2004 16:27 EDT us Hilton Álvarez MD CHEMISTRY & BLOOD GAS ORDE RABLES Final Result Performing Organization Address [facility] de Phone Number [facility] [address] [place] [address] * ELECTROLYTES (10/16/2004 16:27 EDT) Sodium 143 136 - 145 mEq/L [facility] Potassium 3.8 3.6 - 5.2 mEq/L [facility] Chloride 109 96 - 110 mEq/L [facility] CO2 28 24 - 32 mEq/L [facility] 10/16/2004 16:2 7 EDT 10/16/2004 16:27 EDT Hilton Álvarez MD CHEMISTRY & BLOOD GAS ORDE RABLES Final Result Performing Organization Address [facility] de Phone Number [facility] [address] [place] [address] * SODIUM (10/16/2004 14:14 EDT) Sodium 141 136 - 145 mEq/L [facility] 10/16/2004 14:1 4 EDT 10/16/2004 14:14 EDT Hilton Álvarez MD CHEMISTRY & BLOOD GAS ORDE RABLES Final Result Performing Organization Address [facility]/State/ZIP Co de Phone Number [facility] [address] [place] [address] * OSMOLALITY, URINE (10/16/2004 12:14 EDT) Osmolality, Ur 191 MOS/KG MELONIETEA HER [facility] 10/16/2004 12:1 4 EDT 10/16/2004 12:14 EDT Hilton Álvarez MD URINALYSIS ORDERABLES Jacquie l Result Performing Organization Address [facility] Co de Phone Number [facility] [address] [place] [address] * SODIUM, URINE RANDOM (10/16/2004 12:14 EDT) Sodium, Ur 27.0 mEq/L [facility] 10/16/2004 12:1 4 EDT 10/16/2004 12:14 EDT Hilton Álvarez MD URINALYSIS ORDERABLES Jacquie l Result Performing Organization Address [facility] de Phone Number [facility] [address] [place] [address] * OSMOLALITY (10/16/2004 12:13 EDT) Osmolality Cintia 298 MOS/KG SHERI [facility]ME[facility] 10/16/2004 12:1 3 EDT 10/16/2004 12:13 EDT Hilton Álvarez MD CHEMISTRY & BLOOD GAS [facility] Final Result Performing Organization Address [facility] Co de Phone Number [facility] [address] [place] [address] * ELECTROLYTES (10/16/2004 12:13 EDT) Sodium 138 136 - 145 mEq/L [facility] Potassium 3.6 3.6 - 5.2 mEq/L [facility] Chloride 103 96 - 110 mEq/L [facility] CO2 27 24 - 32 mEq/L [facility] 10/16/2004 12:1 3 EDT 10/16/2004 12:13 EDT us Hilton Álvarez MD CHEMISTRY & BLOOD GAS ORDE RIDDHI Final Result Performing Organization Address [facility] Co de Phone Number [facility] [address] [place] [address] * (ABNORMAL) SODIUM (10/16/2004 10:21 EDT) Sodium 135(L) 136 - 145 mEq/L [facility] Comment:Heparinized plasma. 10/16/2004 10:2 1 EDT 10/16/2004 10:21 EDT us Hilton Álvarez MD CHEMISTRY & BLOOD GAS ORDE RIDDHI Final Result Performing Organization Address [facility] de Phone Number [facility] [address] [place] [address] * OSMOLALITY, URINE (10/16/2004 8:22 EDT) Osmolality, Ur 792 MOS/KG [facility] 10/16/2004 8:22 EDT 10/16/2004 8:22 EDT us Hilton Álvarez MD URINALYSIS ORDERABLES Jacquie l Result Performing Organization Address [facility] Co de Phone Number [facility] [address] [place] [address] * SODIUM, URINE RANDOM (10/16/2004 8:22 EDT) Sodium, Ur 186.0 mEq/L [facility] 10/16/2004 8:22 EDT 10/16/2004 8:22 EDT us Hilton Álvarez MD URINALYSIS ORDERABLES Jacquie l Result Performing Organization Address [facility] Co de Phone Number [facility] [address] [place] [address] * OSMOLALITY (10/16/2004 8:21 EDT) Osmolality Cintia 289 MOS/KG SHERI [facility] 10/16/2004 8:21 EDT 10/16/2004 8:21 EDT Hilton Álvarez MD CHEMISTRY & BLOOD GAS ORDE RABLES Final Result Performing Organization Address [facility] de Phone Number [facility] [address] [place] [address] * SODIUM (10/16/2004 8:21 EDT) Sodium 136 - 145 mEq/L [facility] 10/16/2004 8:21 EDT 10/16/2004 8:21 EDT Hilton Álvarez MD CHEMISTRY & BLOOD GAS ORDE RABLES Final Result Performing Organization Address [facility] Phone Number [facility] [address] [place] [address] * (ABNORMAL) ELECTROLYTES (10/16/2004 8:21 EDT) Sodium 135(L) 136 - 145 mEq/L [facility] Potassium 3.9 3.6 - 5.2 mEq/L [facility] Chloride 101 96 - 110 mEq/L [facility] CO2 28 24 - 32 mEq/L [facility] 10/16/2004 8:21 EDT 10/16/2004 8:21 EDT Hilton Álvarez MD CHEMISTRY & BLOOD GAS ORDE RABLES Final Result Performing Organization Address [facility] de Phone Number [facility] [address] [place] [address] * SODIUM (10/16/2004 6:19 EDT) Sodium 137 136 - 145 mEq/L [facility] 10/16/2004 6:19 EDT 10/16/2004 6:19 EDT Hilton Álvarez MD CHEMISTRY & BLOOD GAS ORDE RABREBECA Final Result Performing Organization Address [facility] de Phone Number [facility] [address] [place] [address] * GLUCOSE, SERUM (10/16/2004 4:25 EDT) Glucose, Serum 100 70 - 110 mg/dl [facility] 10/16/2004 4:25 EDT 10/16/2004 4:25 EDT Hilton Álvarez MD CHEMISTRY & BLOOD GAS ORDE RABLES Final Result Performing Organization Address [facility] Phone Number [facility] [address] [place] [address] * PTT (10/16/2004 4:25 EDT) PTT 27 23 - 34 secs [facility] Comment:Therapeutic Heparin range: 72-120 seconds 10/16/2004 4:25 EDT 10/16/2004 4:25 EDT Hilton Álvarez MD HEMATOLOGY & PF4 ORDERABLE S Final Result Performing Organization Address [facility] Phone Number [facility] [address] [place] [address] * (ABNORMAL) PROTIME (10/16/2004 4:25 EDT) Pro Time 14.8(H) 12.3 - 14.7 secs [facility] I.N.R. 1.1 0.9 - 1.1 Ratio [facility] Comment: Moderate Intensity Coumadin INR = 2.0-3.0 Adjustments in anticoagulant therapy dose should be based upon the INR and NOT the Pro Time. 10/16/2004 4:25 EDT 10/16/2004 4:25 EDT Hilton Álvarez MD HEMATOLOGY & PF4 ORDERABLE S Final Result Performing Organization Address [facility] de Phone Number [facility] [address] [place] [address] * OSMOLALITY (10/16/2004 4:25 EDT) Osmolality Cintia 283 MOS/KG SH[facility]I [facility] 10/16/2004 4:25 EDT 10/16/2004 4:25 EDT us Hilton Álvarez MD CHEMISTRY & BLOOD GAS ORDE [facility] Final Result Performing Organization Address [facility] de Phone Number [facility] [address] [place] [address] * ELECTROLYTES (10/16/2004 4:25 EDT) Sodium 138 136 - 145 mEq/L [facility] Potassium 3.7 3.6 - 5.2 mEq/L [facility] Chloride 103 96 - 110 mEq/L [facility] CO2 30 24 - 32 mEq/L [facility] 10/16/2004 4:25 EDT 10/16/2004 4:25 EDT Hilton Álvarez MD CHEMISTRY & BLOOD GAS ORDE RABREBECA Final Result Performing Organization Address [facility] de Phone Number [facility] [address] [place] [address] * CREATININE (10/16/2004 4:25 EDT) Creatinine 0.8 0.6 - 1.2 mg/dl [facility] 10/16/2004 4:25 EDT 10/16/2004 4:25 EDT us Hilton Álvarez MD HISTORICAL LAB FOR SQ LOAD Final Result Performing Organization Address [facility] de Phone Number [facility] [address] [place] [address] * (ABNORMAL) HEMAGRAM AND DIFFERENTIAL (10/16/2004 4:25 EDT) WBC 10.35 4.5 - 13.0 K/cmm [facility] [...] EDT Hilton Álvarez MD PACKAGES & DNA PROBE ORDER LYNDSEY Final Result Performing Organization Address City/[facility] Co de Phone Number [facility] [address] [place] [address] * BUN (10/16/2004 4:25 EDT) BUN 19 8 - 21 mg/dl [facility] 10/16/2004 4:25 EDT 10/16/2004 4:25 EDT Hilton Álvarez MD CHEMISTRY & BLOOD GAS ORDE RIDDHI Final Result Performing Organization Address City/[facility]/ZIP Co de Phone Number [facility] [address] [place] [address] * OSMOLALITY, URINE (10/16/2004 4:25 EDT) Osmolality, Ur 845 MOS/KG HOLLY ROJAS [facility] 10/16/2004 4:25 EDT 10/16/2004 4:25 EDT Hilton Álvarez MD URINALYSIS ORDERABLES Jacquie l Result Performing Organization Address [facility] Phone Number [facility] [address] [place] [address] * SODIUM, URINE RANDOM (10/16/2004 4:25 EDT) Sodium, Ur 165.0 mEq/L [facility] 10/16/2004 4:25 EDT 10/16/2004 4:25 EDT Hilton Álvarez MD URINALYSIS ORDERABLES Jacquie l Result Performing Organization Address [facility] Phone Number [facility] [address] [place] [address] * SODIUM (10/16/2004 2:11 EDT) Sodium 136 136 - 145 mEq/L [facility] 10/16/2004 2:11 EDT 10/16/2004 2:11 EDT Hilton Álvarez MD CHEMISTRY & BLOOD GAS ORDE RABREBECA Final Result Performing Organization Address [facility] Phone Number [place] [address] * OSMOLALITY (10/16/2004 0:18 EDT) Osmolality Cintia 292 MOS/KG SHERI ALMEIDA [facility] 10/16/2004 0:18 EDT 10/16/2004 0:18 EDT us Hilton Álvarez MD CHEMISTRY & BLOOD GAS ORDE RABLES Final Result Performing Organization Address [facility] Phone Number [facility] [address] [place] [address] * ELECTROLYTES (10/16/2004 0:18 EDT) Sodium 139 136 - 145 mEq/L [facility] Potassium 3.6 3.6 - 5.2 mEq/L [facility] Chloride 104 96 - 110 mEq/L [facility] CO2 29 24 - 32 mEq/L [facility] 10/16/2004 0:18 EDT 10/16/2004 0:18 EDT Hilton Álvarez MD CHEMISTRY & BLOOD GAS HERMES HANNON Final Result Performing Organization Address [facility] Co de Phone Number [facility] [address] [place] [address] * OSMOLALITY, URINE (10/16/2004 0:18 EDT) Osmolality, Ur 276 MOS/KG [facility] 10/16/2004 0:18 EDT 10/16/2004 0:18 EDT Hilton Álvarez MD URINALYSIS ORDERABLES Jacquie l Result Performing Organization Address [facility] Co de Phone Number [facility] [address] [place] [address] * SODIUM, URINE RANDOM (10/16/2004 0:18 EDT) Sodium, Ur 60.0 mEq/L [facility] 10/16/2004 0:18 EDT 10/16/2004 0:18 EDT Hilton Álvarez MD URINALYSIS ORDERABLES Jacquie l Result Performing Organization Address [facility] Co de Phone Number [facility] [address] [place] [address] * SODIUM (10/15/2004 21:55 EDT) Sodium 141 136 - 145 mEq/L [facility] 10/15/2004 21:5 5 EDT 10/15/2004 21:55 EDT Hilton Álvarez MD CHEMISTRY & BLOOD GAS HERMES HANNON Final Result Performing Organization Address [facility] Co de Phone Number [facility] [address] [place] [address] * OSMOLALITY, URINE (10/15/2004 20:04 EDT) Osmolality, Ur 117 MOS/KG [facility] 10/15/2004 20:0 4 EDT 10/15/2004 20:04 EDT Hilton Álvarez MD URINALYSIS ORDERABLES Jacquie l Result Performing Organization Address [facility] de Phone Number [facility] [address] [place] [address] * SODIUM, URINE RANDOM (10/15/2004 20:04 EDT) Sodium, Ur 29.0 mEq/L [facility] 10/15/2004 20:0 4 EDT 10/15/2004 20:04 EDT Hilton Álvarez MD URINALYSIS ORDERABLES Jacquie l Result Performing Organization Address [facility] de Phone Number [facility] [address] [place] [address] * OSMOLALITY (10/15/2004 20:04 EDT) Osmolality Cintia 285 MOS/KG SHERI [facility] 10/15/2004 20:0 4 EDT 10/15/2004 20:04 EDT Hilton Álvarez MD CHEMISTRY & BLOOD GAS HERMES HANNON Final Result Performing Organization Address [facility] de Phone Number [facility] [address] [place] [address] * ELECTROLYTES (10/15/2004 20:04 EDT) Sodium 136 136 - 145 mEq/L [facility] Potassium 3.6 3.6 - 5.2 mEq/L [facility] Chloride 99 96 - 110 mEq/L [facility] CO2 29 24 - 32 mEq/L [facility] 10/15/2004 20:0 4 EDT 10/15/2004 20:04 EDT Hilton Álvarez MD CHEMISTRY & BLOOD GAS [facility] Final Result Performing Organization Address City/[facility] Co de Phone Number [facility] [address] [place] [address] * (ABNORMAL) HEMAGRAM (10/15/2004 20:04 EDT) WBC 12.67 4.5 - 13.0 K/cmm [facility] RBC 3.77(L) 4.50 - 5.30 M/cmm [facility] Hemoglobin 10.8(L) 13.0 - 16.0 gm/dl [facility] HCT 31.0(L) 37.0 - 49.0 % [facility] MCV 82 78 - 98 fl [facility] MCH 28.6 pg [facility] MCHC 34.7 gm/dl [facility] PLT 320(H) 156 - 312 K/cmm [facility] RDW-CV 15.2 % [facility] 10/15/2004 20:0 4 EDT 10/15/2004 20:04 EDT Hilton Álvarez MD HEMATOLOGY & PF4 ORDERABLE S Final Result Performing Organization Address City/[facility] Co de Phone Number [facility] [address] [place] [address] * (ABNORMAL) SODIUM (10/15/2004 18:23 EDT) Sodium 133(L) 136 - 145 mEq/L [facility] 10/15/2004 18:2 3 EDT 10/15/2004 18:27 EDT Hilton Álvarez MD CHEMISTRY & BLOOD GAS HERMES HANNON Final Result Performing Organization Address [facility] Co de Phone Number [facility] [address] [place] [address] * OSMOLALITY, URINE (10/15/2004 16:23 EDT) Osmolality, Ur 405 MOS/KG HOLLY [facility] 10/15/2004 16:2 3 EDT 10/15/2004 16:23 EDT Hilton Álvarez MD URINALYSIS ORDERABLES Jacquie l Result Performing Organization Address [facility] Co de Phone Number [facility] [address] [place] [address] * SODIUM, URINE RANDOM (10/15/2004 16:23 EDT) Sodium, Ur 96.0 mEq/L [facility] 10/15/2004 16:2 3 EDT 10/15/2004 16:23 EDT Hilton Álvarez MD URINALYSIS ORDERABLES Jacquie l Result Performing Organization Address [facility] de Phone Number [place] [address] * GLUCOSE, SERUM (10/15/2004 16:22 EDT) Glucose, Serum 97 70 - 110 mg/dl [facility] 10/15/2004 16:2 2 EDT 10/15/2004 16:22 EDT Hilton Álvarez MD CHEMISTRY & BLOOD GAS HERMES HANNON Final Result Performing Organization Address [facility] de Phone Number [place] [address] * OSMOLALITY (10/15/2004 16:22 EDT) Osmolality Cintia 269 MOS/KG SHERI ALMEIDA [facility] 10/15/2004 16:2 2 EDT 10/15/2004 16:22 EDT us Hilton Álvarez MD CHEMISTRY & BLOOD GAS ORDE RABREBECA Final Result Performing Organization Address [facility] de Phone Number [facility] [address] [place] [address] * (ABNORMAL) ELECTROLYTES (10/15/2004 16:22 EDT) Sodium 130(L) 136 - 145 mEq/L [facility] Potassium 3.6 3.6 - 5.2 mEq/L [facility] Chloride 96 96 - 110 mEq/L [facility] CO2 28 24 - 32 mEq/L [facility] 10/15/2004 16:2 2 EDT 10/15/2004 16:22 EDT us Hilton Álvarez MD CHEMISTRY & BLOOD GAS ORDE RIDDHI Final Result Performing Organization Address [facility] de Phone Number [facility] [address] [place] [address] * (ABNORMAL) SODIUM (10/15/2004 14:04 EDT) Sodium 129(L) 136 - 145 mEq/L [facility] Comment:Heparinized plasma. 10/15/2004 14:0 4 EDT 10/15/2004 14:04 EDT Hilton Álvarez MD CHEMISTRY & BLOOD GAS ORDE RIDDHI Final Result Performing Organization Address [facility] de Phone Number [facility] [address] [place] [address] * OSMOLALITY (10/15/2004 12:06 EDT) Osmolality Cintia 275 MOS/KG SHERI [facility] 10/15/2004 12:0 6 EDT 10/15/2004 12:06 EDT Hilton Álvarez MD CHEMISTRY & BLOOD GAS ORDE RABREBECA Final Result Performing Organization Address [facility]/ZIP Co de Phone Number [facility] [address] [place] [address] * SODIUM (10/15/2004 12:06 EDT) Sodium 136 - 145 mEq/L [facility] 10/15/2004 12:0 6 EDT 10/15/2004 12:06 EDT Hilton Álvarez MD CHEMISTRY & BLOOD GAS ORDEmerald HANNON Final Result Performing Organization Address [facility] Co de Phone Number [facility] [address] [place] [address] * (ABNORMAL) ELECTROLYTES (10/15/2004 12:06 EDT) Sodium 130(L) 136 - 145 mEq/L [facility] Comment:Heparinized plasma. Potassium 3.7 3.6 - 5.2 mEq/L [facility] Comment:Heparinized plasma. Chloride 96 96 - 110 mEq/L [facility] Comment:Heparinized plasma. CO2 28 24 - 32 mEq/L [facility] Comment:Heparinized plasma. 10/15/2004 12:0 6 EDT 10/15/2004 12:06 EDT Hilton Álvarez MD CHEMISTRY & BLOOD GAS HERMES HANNON Final Result Performing Organization Address [facility] de Phone Number [facility] [address] [place] [address] * OSMOLALITY, URINE (10/15/2004 12:04 EDT) Osmolality, Ur 840 MOS/KG [facility] 10/15/2004 12:0 4 EDT 10/15/2004 12:04 EDT Hilton Álvarez MD URINALYSIS ORDERABLES Jacquie l Result Performing Organization Address [facility] Co de Phone Number [facility] [address] [place] [address] * SODIUM, URINE RANDOM (10/15/2004 12:04 EDT) Sodium, Ur 243.0 mEq/L [facility] 10/15/2004 12:0 4 EDT 10/15/2004 12:04 EDT Hilton Álvarez MD URINALYSIS ORDERABLES Jacquie l Result Performing Organization Address [facility] Co de Phone Number [facility] [address] [place] [address] * (ABNORMAL) SODIUM (10/15/2004 10:07 EDT) Sodium 130(L) 136 - 145 mEq/L [facility] Comment:Heparinized plasma. 10/15/2004 10:0 7 EDT 10/15/2004 10:07 EDT Hilton Álvarez MD CHEMISTRY & BLOOD GAS [facility] Final Result Performing Organization Address [facility] Co de Phone Number [facility] [address] [place] [address] * OSMOLALITY, URINE (10/15/2004 8:17 EDT) Osmolality, Ur 791 MOS/KG [facility] 10/15/2004 8:17 EDT 10/15/2004 8:17 EDT Hilton Álvarez MD URINALYSIS ORDERABLES Jacquie l Result Performing Organization Address [facility] Co de Phone Number [facility] [address] [place] [address] * SODIUM, URINE RANDOM (10/15/2004 8:17 EDT) Sodium, Ur 254.0 mEq/L [facility] 10/15/2004 8:17 EDT 10/15/2004 8:17 EDT Hilton Álvarez MD URINALYSIS ORDERABLES Jacquie l Result Performing Organization Address [facility] Co de Phone Number [facility] [address] [place] [address] * URINE MICROSCOPIC (10/15/2004 8:17 EDT) WBC, UA None seen 0 - 5 /HPF [facility] RBC, UA less than 1 0 - 5 /HPF [facility] Squam Epithel, UA None seen NS /HPF [facility] Renal Epithel, UA None seen NS /HPF [facility] Bacteria, UA None seen NS /HPF FRANKIE R [facility] Crystals, UA 1 to 10 /HPF TRUEE [facility] Comment:Calcium phosphate Hyaline Casts, UA None seen /LPF [facility] UA Comment Microscopic results are unreliable on urines unrefrig >2hrs or refrig >8hrs. [facility] Mucus, UA Present [facility] Additional Findings Amorphous material present [facility] 10/15/2004 8:17 EDT 10/15/2004 8:17 EDT us Hilton Álvarez MD URINALYSIS ORDERABLES Jacquie l Result Performing Organization Address [facility] de Phone Number [facility] [address] [place] [address] * (ABNORMAL) URINALYSIS (10/15/2004 8:17 EDT) Color, UA Yellow [facility] Clarity, UA Clear [facility] Glucose, UA Norm NORM [facility] Bilirubin, UA Neg NEG TRUE ER [facility] Ketones, UA Neg NEG [facility] Specific [place], Urine 1.020 1.005 - 1.02 [facility] [...] 10/15/2004 8:17 EDT Hilton Álvarez MD URINALYSIS ORDERABLES Jacquie l Result Performing Organization Address [facility] Co de Phone Number [facility] [address] [place] [address] * TESTS ADDED BY PHONE (10/15/2004 8:17 EDT) Tests to be added UA [facility] 10/15/2004 8:17 EDT 10/15/2004 8:17 EDT Hilton Álvarez MD CHEMISTRY & BLOOD GAS ORDE RABLES Final Result Performing Organization Address [facility] de Phone Number [facility] [address] [place] [address] * OSMOLALITY (10/15/2004 8:16 EDT) Osmolality Cintia 271 MOS/KG SHERI ALMEIDA [facility] 10/15/2004 8:16 EDT 10/15/2004 8:16 EDT Hilton Álvarez MD CHEMISTRY & BLOOD GAS ORDE RABLES Final Result Performing Organization Address [facility] Phone Number [facility] [address] [place] [address] * (ABNORMAL) ELECTROLYTES (10/15/2004 8:16 EDT) Sodium 131(L) 136 - 145 mEq/L [facility] Potassium 3.6 3.6 - 5.2 mEq/L [facility] Chloride 98 96 - 110 mEq/L [facility] CO2 29 24 - 32 mEq/L [facility] 10/15/2004 8:16 EDT 10/15/2004 8:16 EDT us Hilton Álvarez MD CHEMISTRY & BLOOD GAS ORDE RABLES Final Result Performing Organization Address [facility] Co de Phone Number [facility] [address] [place] [address] * OSMOLALITY, URINE (10/15/2004 4:21 EDT) Osmolality, Ur 587 MOS/KG [facility] 10/15/2004 4:21 EDT 10/15/2004 4:21 EDT Hilton Álvarez MD URINALYSIS ORDERABLES Jacquie l Result Performing Organization Address [facility] de Phone Number [facility] [address] [place] [address] * SODIUM, URINE RANDOM (10/15/2004 4:21 EDT) Sodium, Ur 189.0 mEq/L [facility] 10/15/2004 4:21 EDT 10/15/2004 4:21 EDT Hilton Álvarez MD URINALYSIS ORDERABLES Jacquie l Result Performing Organization Address [facility] Phone Number [facility] [address] [place] [address] * GLUCOSE, SERUM (10/15/2004 4:21 EDT) Glucose, Serum 110 70 - 110 mg/dl [facility] 10/15/2004 4:21 EDT 10/15/2004 4:21 EDT Hilton Álvarez MD CHEMISTRY & BLOOD GAS ORDE RABLES Final Result Performing Organization Address [facility] Phone Number [facility] [address] [place] [address] * PTT (10/15/2004 4:21 EDT) PTT 27 23 - 34 secs [facility] Comment:Therapeutic Heparin range: 72-120 seconds 10/15/2004 4:21 EDT 10/15/2004 4:21 EDT us Hilton Álvarez MD HEMATOLOGY & PF4 ORDERABLE S Final Result Performing Organization Address [facility] de Phone Number [facility] [address] [place] [address] * (ABNORMAL) PROTIME (10/15/2004 4:21 EDT) Pro Time 14.9(H) 12.3 - 14.7 secs [facility] I.N.R. 1.1 0.9 - 1.1 Ratio [facility] Comment: Moderate Intensity Coumadin INR = 2.0-3.0 Adjustments in anticoagulant therapy dose should be based upon the INR and NOT the Pro Time. 10/15/2004 4:21 EDT 10/15/2004 4:21 EDT Hilton Álvarez MD HEMATOLOGY & PF4 ORDERABLE S Final Result Performing Organization Address [facility] de Phone Number [facility] [address] [place] [address] * OSMOLALITY (10/15/2004 4:21 EDT) Pathologist [facility] Osmolality Cintia 270 MOS/KG [facility] 10/15/2004 4:21 EDT 10/15/2004 4:21 EDT Hilton Álvarez MD CHEMISTRY & BLOOD GAS [facility] Final Result Performing Organization Address [facility] de Phone Number [facility] [address] [place] [address] * (ABNORMAL) ELECTROLYTES (10/15/2004 4:21 EDT) Pathologist [facility] Sodium 126(L) 136 - 145 mEq/L [facility] Potassium 3.5(L) 3.6 - 5.2 mEq/L [facility] Chloride 90(L) 96 - 110 mEq/L [facility] CO2 30 24 - 32 mEq/L [facility] 10/15/2004 4:21 EDT 10/15/2004 4:21 EDT Hilton Álvarez MD CHEMISTRY & BLOOD GAS ORDE RABLES Final Result [facility] [address] [place] [address] * CREATININE (10/15/2004 4:21 EDT) Creatinine 0.6 0.6 - 1.2 mg/dl [facility] 10/15/2004 4:21 EDT 10/15/2004 4:21 EDT us Hilton Álvarez MD HISTORICAL LAB FOR SQ LOAD Final Result Performing Organization Address [facility] Co de Phone Number [facility] [address] [place] [address] * (ABNORMAL) HEMAGRAM AND DIFFERENTIAL (10/15/2004 4:21 EDT) Pathologist [facility] WBC 13.00 4.5 - 13.0 K/cmm [facility] [...] of Diff: Automated TRUE STEVENS [facility] 10/15/2004 4:21 EDT 10/15/2004 4:21 EDT Hilton Álvarez MD PACKAGES & DNA PROBE ORDER LYNDSEY Final Result Performing Organization Address [facility] Phone Number [facility] [address] [place] [address] * BUN (10/15/2004 4:21 EDT) BUN 12 8 - 21 mg/dl [facility] 10/15/2004 4:21 EDT 10/15/2004 4:21 EDT Hilton Álvarez MD CHEMISTRY & BLOOD GAS ORDE RABLES Final Result Performing Organization Address [facility] Phone Number [facility] [address] [place] [address] * OSMOLALITY, URINE (10/15/2004 0:55 EDT) Pathologist [facility] Osmolality, Ur 646 MOS/KG HOLLY ROJAS [facility] 10/15/2004 0:55 EDT 10/15/2004 0:55 EDT Hilton Álvarez MD URINALYSIS ORDERABLES Jacquie l Result Performing Organization Address [facility] Phone Number [facility] [address] [place] [address] * SODIUM, URINE RANDOM (10/15/2004 0:55 EDT) Pathologist [facility] Sodium, Ur 258.0 mEq/L [facility] 10/15/2004 0:55 EDT 10/15/2004 0:55 EDT Hilton Álvarez MD URINALYSIS ORDERABLES Jacquie l Result Performing Organization Address [facility] Phone Number [facility] [address] [place] [address] * OSMOLALITY (10/15/2004 0:54 EDT) Osmolality Cintia 266 MOS/KG SHERI ALMEIDA [facility] 10/15/2004 0:54 EDT 10/15/2004 0:54 EDT Hilton Álvarez MD CHEMISTRY & BLOOD GAS ORDEmerald [facility] Final Result Performing Organization Address [facility] de Phone Number [facility] [address] [place] [address] * (ABNORMAL) ELECTROLYTES (10/15/2004 0:54 EDT) Sodium 127(L) 136 - 145 mEq/L [facility] Potassium 3.6 3.6 - 5.2 mEq/L [facility] Chloride 92(L) 96 - 110 mEq/L [facility] CO2 29 24 - 32 mEq/L [facility] 10/15/2004 0:54 EDT 10/15/2004 0:54 EDT Hilton Álvarez MD CHEMISTRY & BLOOD GAS HERMES HANNON Final Result Performing Organization Address [facility] de Phone Number [facility] [address] [place] [address] * SODIUM, URINE RANDOM (10/14/2004 22:05 EDT) Sodium, Ur 148.0 mEq/L [facility] 10/14/2004 22:0 5 EDT 10/14/2004 22:05 EDT Hilton Álvarez MD URINALYSIS ORDERABLES Jacquie l Result Performing Organization Address [facility] de Phone Number [facility] [address] [place] [address] * (ABNORMAL) SODIUM (10/14/2004 21:44 EDT) Sodium 130(L) 136 - 145 mEq/L [facility] 10/14/2004 21:4 4 EDT 10/14/2004 22:05 EDT Hilton Álvarez MD CHEMISTRY & BLOOD GAS ORDE RABLES Final Result Performing Organization Address City/[facility]/ZIP Co de Phone Number [facility] [address] [place] [address] * (ABNORMAL) GLUCOSE, SERUM (10/14/2004 20:25 EDT) Glucose, Serum 125(H) 70 - 110 mg/dl [facility] 10/14/2004 20:2 5 EDT 10/14/2004 20:25 EDT Hilton Álvarez MD CHEMISTRY & BLOOD GAS ORDE RABLES Final Result Performing Organization Address [facility] de Phone Number [facility] [address] [place] [address] * OSMOLALITY (10/14/2004 20:25 EDT) Osmolality Cintia 272 MOS/KG [facility] 10/14/2004 20:2 5 EDT 10/14/2004 20:25 EDT Hilton Álvarez MD CHEMISTRY & BLOOD GAS ORDE RABLES Final Result Performing Organization Address [facility] de Phone Number [facility] [address] [place] [address] * (ABNORMAL) ELECTROLYTES (10/14/2004 20:25 EDT) Sodium 130(L) 136 - 145 mEq/L [facility] Potassium 3.7 3.6 - 5.2 mEq/L [facility] Chloride 94(L) 96 - 110 mEq/L [facility] CO2 29 24 - 32 mEq/L [facility] 10/14/2004 20:2 5 EDT 10/14/2004 20:25 EDT Hilton Álvarez MD CHEMISTRY & BLOOD GAS ORDE RABLES Final Result Performing Organization Address City/[facility] Co de Phone Number [facility] [address] [place] [address] * CREATININE (10/14/2004 20:25 EDT) Creatinine 0.6 0.6 - 1.2 mg/dl [facility] 10/14/2004 20:2 5 EDT 10/14/2004 20:25 EDT Hilton Álvarez MD HISTORICAL LAB FOR SQ LOAD Final Result Performing Organization Address [facility] Phone Number [facility] [address] [place] [address] * BUN (10/14/2004 20:25 EDT) BUN 13 8 - 21 mg/dl [facility] 10/14/2004 20:2 5 EDT 10/14/2004 20:25 EDT Hilton Álvarez MD CHEMISTRY & BLOOD GAS ORDE RABLES Final Result Performing Organization Address [facility] Phone Number [facility] [address] [place] [address] * OSMOLALITY, URINE (10/14/2004 20:25 EDT) Osmolality, Ur 697 MOS/KG MELONIETEA ROJAS [facility] 10/14/2004 20:2 5 EDT 10/14/2004 20:25 EDT us Hilton Álvarez MD URINALYSIS ORDERABLES Jacquie l Result Performing Organization Address [facility] Phone Number [facility] [address] [place] [address] * SODIUM, URINE RANDOM (10/14/2004 20:25 EDT) Sodium, Ur 275.0 mEq/L [facility] 10/14/2004 20:2 5 EDT 10/14/2004 20:25 EDT us Hilton Álvarez MD URINALYSIS ORDERABLES Jacquie l Result Performing Organization Address [facility] Phone Number [facility] [address] [place] [address] * (ABNORMAL) GLUCOSE, SERUM (10/14/2004 15:58 EDT) [facility] Glucose, Serum 113(H) 70 - 110 mg/dl [facility] 10/14/2004 15:5 8 EDT 10/14/2004 16:03 EDT Hilton Álvarez MD CHEMISTRY & BLOOD GAS ORDE RABLES Final Result Performing Organization Address [facility] de Phone Number [facility] [address] [place] [address] * OSMOLALITY (10/14/2004 15:58 EDT) [facility] Osmolality Cintia 285 MOS/KG [facility] 10/14/2004 15:5 8 EDT 10/14/2004 16:03 EDT Hilton Álvarez MD CHEMISTRY & BLOOD GAS ORDE RABLES Final Result Performing Organization Address [facility] de Phone Number [facility] [address] [place] [address] * (ABNORMAL) ELECTROLYTES (10/14/2004 15:58 EDT) [facility] Sodium 133(L) 136 - 145 mEq/L [facility] Potassium 3.9 3.6 - 5.2 mEq/L [facility] Chloride 100 96 - 110 mEq/L [facility] CO2 27 24 - 32 mEq/L [facility] 10/14/2004 15:5 8 EDT 10/14/2004 16:03 EDT Hilton Álvarez MD CHEMISTRY & BLOOD GAS ORDE RABLES Final Result Performing Organization Address [facility] Co de Phone Number [facility] [address] [place] [address] * OSMOLALITY, URINE (10/14/2004 15:57 EDT) [facility] Osmolality, Ur 823 MOS/KG HO[facility] 10/14/2004 15:5 7 EDT 10/14/2004 16:02 EDT Hilton Álvarez MD URINALYSIS ORDERABLES Jacquie l Result Performing Organization Address [facility] Co de Phone Number [facility] [address] [place] [address] * SODIUM, URINE RANDOM (10/14/2004 15:57 EDT) Sodium, Ur 265.0 mEq/L [facility] 10/14/2004 15:5 7 EDT 10/14/2004 16:02 EDT Hilton Álvarez MD URINALYSIS ORDERABLES Jacquie nur Result Performing Organization Address [facility] Phone Number [facility] [address] [place] [address] * CT HEAD WO CONTRAST (10/14/2004 13:25 [...] seen in the left ethmoid air cells. /[facility] Narrative 03/02/2009 16:36 EDT H/O S/P CRANIOPHARYNGIOMA [...] seen in the left ethmoid air cells. /[facility] Trice Scott MD IMG CT ORDERABLES Final Re sult * OSMOLALITY, URINE (10/14/2004 11:49 EDT) Osmolality, Ur 888 MOS/KG HOLLY GARC[facility] 10/14/2004 11:4 9 EDT 10/14/2004 11:49 EDT Hilton Álvarez MD URINALYSIS ORDERABLES Jacquie nur Result [facility] [address] [place] [address] * SODIUM, URINE RANDOM (10/14/2004 11:49 EDT) Sodium, Ur 249.0 mEq/L [facility] 10/14/2004 11:4 9 EDT 10/14/2004 11:49 EDT Hilton Álvarez MD URINALYSIS ORDERABLES Jacquie l Result Performing Organization Address [facility] de Phone Number [facility] [address] [place] [address] * OSMOLALITY (10/14/2004 11:48 EDT) Osmolality Cintia 283 MOS/KG SHERI ALMEIDA [facility] 10/14/2004 11:4 8 EDT 10/14/2004 11:48 EDT Hilton Álvarez MD CHEMISTRY & BLOOD GAS ORDE RABREBECA Final Result Performing Organization Address [facility] Phone Number [facility] [address] [place] [address] * (ABNORMAL) ELECTROLYTES (10/14/2004 11:48 EDT) Sodium 136 136 - 145 mEq/L [facility] Potassium 3.5(L) 3.6 - 5.2 mEq/L [facility] Chloride 102 96 - 110 mEq/L [facility] CO2 31 24 - 32 mEq/L [facility] 10/14/2004 11:4 8 EDT 10/14/2004 11:48 EDT Hilton Álvarez MD CHEMISTRY & BLOOD GAS ORDE RABLES Final Result Performing Organization Address [facility] de Phone Number [facility] [address] [place] [address] * OSMOLALITY, URINE (10/14/2004 8:01 EDT) Osmolality, Ur 899 MOS/KG [facility] 10/14/2004 8:01 EDT 10/14/2004 8:01 EDT Hilton Álvarez MD URINALYSIS ORDERABLES Jacquie l Result Performing Organization Address [facility] de Phone Number [facility] [address] [place] [address] * SODIUM, URINE RANDOM (10/14/2004 8:01 EDT) Sodium, Ur 287.0 mEq/L [facility] 10/14/2004 8:01 EDT 10/14/2004 8:01 EDT Hilton Álvarez MD URINALYSIS ORDERABLES Jacquie l Result Performing Organization Address [facility] Phone Number [facility] [address] [place] [address] * OSMOLALITY (10/14/2004 8:01 EDT) Osmolality Cintia 286 MOS/KG [facility] 10/14/2004 8:01 EDT 10/14/2004 8:01 EDT Hilton Álvarez MD CHEMISTRY & BLOOD GAS ORDE RABREBECA Final Result Performing Organization Address [facility] de Phone Number [facility] [address] [place] [address] * (ABNORMAL) ELECTROLYTES (10/14/2004 8:01 EDT) Sodium 139 136 - 145 mEq/L [facility] Potassium 3.2(L) 3.6 - 5.2 mEq/L [facility] Chloride 105 96 - 110 mEq/L [facility] CO2 28 24 - 32 mEq/L [facility] 10/14/2004 8:01 EDT 10/14/2004 8:01 EDT Hilton Álvarez MD CHEMISTRY & BLOOD GAS ORDE RABLES Final Result Performing Organization Address [facility]/ZIP Co de Phone Number [facility] [address] [place] [address] * GLUCOSE, SERUM (10/14/2004 4:22 EDT) Glucose, Serum 99 70 - 110 mg/dl [facility] 10/14/2004 4:22 EDT 10/14/2004 4:22 EDT Hilton Álvarez MD CHEMISTRY & BLOOD GAS ORDE RABLES Final Result Performing Organization Address [facility] Co de Phone Number [facility] [address] [place] [address] * PTT (10/14/2004 4:22 EDT) PTT 25 23 - 34 secs [facility] Comment:Therapeutic Heparin range: 72-120 seconds 10/14/2004 4:22 EDT 10/14/2004 4:22 EDT Hilton Álvarez MD HEMATOLOGY & PF4 ORDERABLE S Final Result Performing Organization Address [facility] de Phone Number [facility] [address] [place] [address] * (ABNORMAL) PROTIME (10/14/2004 4:22 EDT) Pro Time 16.0(H) 12.3 - 14.7 secs [facility] I.N.R. 1.2(H) 0.9 - 1.1 Ratio [facility] Comment: Moderate Intensity Coumadin INR = 2.0-3.0 Adjustments in anticoagulant therapy dose should be based upon the INR and NOT the Pro Time. 10/14/2004 4:22 EDT 10/14/2004 4:22 EDT Hilton Álvarez MD HEMATOLOGY & PF4 ORDERABLE S Final Result Performing Organization Address [facility] Co de Phone Number [facility] [address] [place] [address] * OSMOLALITY (10/14/2004 4:22 EDT) Osmolality Cintia 291 MOS/KG SHERI ALMEIDA [facility] 10/14/2004 4:22 EDT 10/14/2004 4:22 EDT Hilton Álvarez MD CHEMISTRY & BLOOD GAS ORDE [facility] Final Result Performing Organization Address [facility] Co de Phone Number [facility] [address] [place] [address] * (ABNORMAL) ELECTROLYTES (10/14/2004 4:22 EDT) Pathologist [facility] Sodium 137 136 - 145 mEq/L [facility] Potassium 3.3(L) 3.6 - 5.2 mEq/L [facility] Chloride 103 96 - 110 mEq/L [facility] CO2 31 24 - 32 mEq/L [facility] 10/14/2004 4:22 EDT 10/14/2004 4:22 EDT Hilton Álvarez MD CHEMISTRY & BLOOD GAS ORDE [facility] Final Result Performing Organization Address [facility] Co de Phone Number [facility] [address] [place] [address] * CREATININE (10/14/2004 4:22 EDT) [facility] Creatinine 0.8 0.6 - 1.2 mg/dl [facility] 10/14/2004 4:22 EDT 10/14/2004 4:22 EDT Hilton Álvarez MD HISTORICAL LAB FOR SQ LOAD Final Result Performing Organization Address [facility] Co de Phone Number [facility] [address] [place] [address] * (ABNORMAL) HEMAGRAM AND DIFFERENTIAL (10/14/2004 4:22 EDT) Pathologist [facility] WBC 11.30 4.5 - 13.0 K/cmm [facility] RBC 3.34(L) 4.50 - 5.30 M/cmm [facility] Hemoglobin 9.4(L) 13.0 - 16.0 gm/dl [facility] HCT 27.2(L) 37.0 - 49.0 % [facility] MCV 82 78 - 98 fl [facility] MCH 28.1 pg [facility] MCHC 34.4 gm/dl [facility] PLT 249 156 - 312 K/cmm [facility] RDW-CV 15.3 % [facility] % Neutrophils 69.2 % TRUE STEVENS [facility] % Lymphocytes 16.8 % [facility] % Monocytes 13.1 % [facility] % Eosinophils 0.3 % FLEMARSHA [facility] % Basophils 0.6 % [facility] ABS Neutrophils 7.82 K/cmm SHERI ALMEIDA [facility] ABS Lymphs 1.90 K/cmm [facility] ABS Monocytes 1.48 K/cmm FLEMARSHA ER [facility] ABS Eosinophils 0.03 K/cmm FLET ELLE [facility] ABS Basophils 0.07 K/cmm TRUE [facility]ENS [facility] Type of Diff: Automated [facility] 10/14/2004 4:22 EDT 10/14/2004 4:22 EDT us Hilton Álvarez MD PACKAGES & DNA PROBE ORDER LYNDSEY Final Result Performing Organization Address City/[facility] Co de Phone Number [facility] [address] [place] [address] * BUN (10/14/2004 4:22 EDT) BUN 16 8 - 21 mg/dl [facility] 10/14/2004 4:22 EDT 10/14/2004 4:22 EDT us Hilton Álvarez MD CHEMISTRY & BLOOD GAS ORDE RABLES Final Result Performing Organization Address City/[facility] Co de Phone Number [facility] [address] [place] [address] * REFRACTOMETER SPECIFIC GRAVITY, URINE (10/14/2004 4:21 EDT) Refractometer SG,Urine 1.019 1.005 - 1.02 [facility] 10/14/2004 4:21 EDT 10/14/2004 4:21 EDT us Hilton Álvarez MD URINALYSIS ORDERABLES Jacquie l Result Performing Organization Address [facility] Co de Phone Number [facility] [address] [place] [address] * OSMOLALITY, URINE (10/14/2004 4:21 EDT) Osmolality, Ur 852 MOS/KG HOLLY ROJAS [facility] 10/14/2004 4:21 EDT 10/14/2004 4:21 EDT us Hilton Álvarez MD URINALYSIS ORDERABLES Jacquie l Result Performing Organization Address [facility] Phone Number [facility] [address] [place] [address] * SODIUM, URINE RANDOM (10/14/2004 4:21 EDT) Sodium, Ur 306.0 mEq/L [facility] 10/14/2004 4:21 EDT 10/14/2004 4:21 EDT us Hilton Álvarez MD URINALYSIS ORDERABLES Jacquie l Result Performing Organization Address [facility] de Phone Number [facility] [address] [place] [address] * GLUCOSE, SERUM (10/14/2004 0:22 EDT) Glucose, Serum 91 70 - 110 mg/dl [facility] 10/14/2004 0:22 EDT 10/14/2004 0:22 EDT us Hilton Álvarez MD CHEMISTRY & BLOOD GAS ORDE RIDDHI Final Result Performing Organization Address [facility] Co de Phone Number [facility] [address] [place] [address] * OSMOLALITY (10/14/2004 0:22 EDT) Osmolality Cintia 290 MOS/KG SHERI ALMEIDA [facility] 10/14/2004 0:22 EDT 10/14/2004 0:22 EDT Hilton Álvarez MD CHEMISTRY & BLOOD GAS ORDEmerald [facility] Final Result Performing Organization Address City/[facility] Co de Phone Number [facility] [address] [place] [address] * (ABNORMAL) ELECTROLYTES (10/14/2004 0:22 EDT) Sodium 141 136 - 145 mEq/L [facility] Potassium 3.4(L) 3.6 - 5.2 mEq/L [facility] Chloride 106 96 - 110 mEq/L [facility] CO2 30 24 - 32 mEq/L [facility] 10/14/2004 0:22 EDT 10/14/2004 0:22 EDT Hilton Álvarez MD CHEMISTRY & BLOOD GAS ORDEmerald [facility] Final Result Performing Organization Address [facility] Co de Phone Number [facility] [address] [place] [address] * OSMOLALITY, URINE (10/14/2004 0:22 EDT) Osmolality, Ur 767 MOS/KG HOLLY [facility] 10/14/2004 0:22 EDT 10/14/2004 0:22 EDT Hilton Álvarez MD URINALYSIS ORDERABLES Jacquie l Result Performing Organization Address City/[facility] Co de Phone Number [facility] [address] [place] [address] * SODIUM, URINE RANDOM (10/14/2004 0:22 EDT) Sodium, Ur 293.0 mEq/L [facility] 10/14/2004 0:22 EDT 10/14/2004 0:22 EDT Hilton Álvarez MD URINALYSIS ORDERABLES Jacquie l Result Performing Organization Address [facility] Co de Phone Number [facility] [address] [place] [address] * SODIUM (10/13/2004 22:02 EDT) Sodium 143 136 - 145 mEq/L [facility] 10/13/2004 22:0 2 EDT 10/13/2004 22:02 EDT Hilton Álvarez MD CHEMISTRY & BLOOD GAS ORDE RABLES Final Result Performing Organization Address [facility] Phone Number [facility] [address] [place] [address] * OSMOLALITY (10/13/2004 20:19 EDT) Osmolality Cintia 300 MOS/KG SHERI ALMEIDA [facility] 10/13/2004 20:1 9 EDT 10/13/2004 20:19 EDT Hilton Álvarez MD CHEMISTRY & BLOOD GAS ORDE RABLES Final Result Performing Organization Address [facility] Phone Number [facility] [address] [place] [address] * (ABNORMAL) ELECTROLYTES (10/13/2004 20:19 EDT) Sodium 147(H) 136 - 145 mEq/L [facility] Potassium 3.5(L) 3.6 - 5.2 mEq/L [facility] Chloride 111(H) 96 - 110 mEq/L [facility] CO2 29 24 - 32 mEq/L [facility] 10/13/2004 20:1 9 EDT 10/13/2004 20:19 EDT Hilton Álvarez MD CHEMISTRY & BLOOD GAS ORDE RABLES Final Result Performing Organization Address [facility] Co de Phone Number [facility] [address] [place] [address] * (ABNORMAL) REFRACTOMETER SPECIFIC GRAVITY, URINE (10/13/2004 20:16 EDT) Refractometer SG,Urine 1.002(L) 1.005 - 1.02 [facility] Comment: Refractometer specific gravity Results greater than 1.035 suggest possible interference from glucose or radiographic dye. 10/13/2004 20:1 6 EDT 10/13/2004 20:16 EDT Hilton Álvarez MD URINALYSIS ORDERABLES Jacquie l Result Performing Organization Address [facility] Co de Phone Number [facility] [address] [place] [address] * OSMOLALITY, URINE (10/13/2004 20:16 EDT) Osmolality, Ur 87 MOS/KG HOLLY [facility] 10/13/2004 20:1 6 EDT 10/13/2004 20:16 EDT Hilton Álvarez MD URINALYSIS ORDERABLES Jacquie l Result Performing Organization Address City/[facility] Co de Phone Number [facility] [address] [place] [address] * SODIUM, URINE RANDOM (10/13/2004 20:16 EDT) Sodium, Ur 18.0 mEq/L [facility] 10/13/2004 20:1 6 EDT 10/13/2004 20:16 EDT Hilton Álvarez MD URINALYSIS ORDERABLES Jacquie l Result Performing Organization Address [facility] Co de Phone Number [facility] [address] [place] [address] * SODIUM (10/13/2004 18:38 EDT) Sodium 144 136 - 145 mEq/L ANIS[facility] 10/13/2004 18:3 8 EDT 10/13/2004 18:38 EDT Hilton Álvarez MD CHEMISTRY & BLOOD GAS HERMES HANNON Final Result Performing Organization Address [facility] Co de Phone Number [facility] [address] [place] [address] * SODIUM, URINE RANDOM (10/13/2004 17:34 EDT) Sodium, Ur 17.0 mEq/L [facility] 10/13/2004 17:3 4 EDT 10/13/2004 17:34 EDT Hilton Álvarez MD URINALYSIS ORDERABLES Jcaquie l Result Performing Organization Address [facility] de Phone Number [facility] [address] [place] [address] * OSMOLALITY, URINE (10/13/2004 15:42 EDT) Osmolality, Ur 145 MOS/KG HOLLY [facility] 10/13/2004 15:4 2 EDT 10/13/2004 15:42 EDT Hilton Álvarez MD URINALYSIS ORDERABLES Jacquie l Result Performing Organization Address [facility] de Phone Number [facility] [address] [place] [address] * SODIUM, URINE RANDOM (10/13/2004 15:42 EDT) Sodium, Ur 16.0 mEq/L [facility] 10/13/2004 15:4 2 EDT 10/13/2004 15:42 EDT Hilton Álvarez MD URINALYSIS ORDERABLES Jacquie l Result Performing Organization Address [facility] Co de Phone Number [facility] [address] [place] [address] * (ABNORMAL) PHENYTOIN (10/13/2004 15:33 EDT) Phenytoin [...] Hilton Álvarez MD CHEMISTRY & BLOOD GAS ORDE RABLES Final Result Performing Organization Address [facility] de Phone Number [facility] [address] [place] [address] * OSMOLALITY (10/13/2004 15:33 EDT) Pathologist [facility] Osmolality Cintia 294 MOS/KG SHERI [facility] 10/13/2004 15:3 3 EDT 10/13/2004 15:33 EDT Hilton Álvarez MD CHEMISTRY & BLOOD GAS ORDE RABLES Final Result Performing Organization Address [facility] de Phone Number [facility] [address] [place] [address] * (ABNORMAL) ELECTROLYTES (10/13/2004 15:33 EDT) [facility] Sodium 139 136 - 145 mEq/L [facility] Potassium 3.5(L) 3.6 - 5.2 mEq/L [facility] Chloride 100 96 - 110 mEq/L [facility] CO2 31 24 - 32 mEq/L [facility] 10/13/2004 15:3 3 EDT 10/13/2004 15:33 EDT Hilton Álvarez MD CHEMISTRY & BLOOD GAS ORDE RABLES Final Result Performing Organization Address [facility] Co de Phone Number [facility] [address] [place] [address] * OSMOLALITY (10/13/2004 12:01 EDT) Pathologist [facility] Osmolality Cintia 280 MOS/KG SHERI [facility] 10/13/2004 12:0 1 EDT 10/13/2004 12:01 EDT Hilton Álvarez MD CHEMISTRY & BLOOD GAS ORDE RABLES Final Result Performing Organization Address [facility]/ZIP Co de Phone Number [facility] [address] [place] [address] * (ABNORMAL) ELECTROLYTES (10/13/2004 12:01 EDT) [facility] Sodium 135(L) 136 - 145 mEq/L [facility] Potassium 3.7 3.6 - 5.2 mEq/L [facility] Chloride 100 96 - 110 mEq/L [facility] CO2 30 24 - 32 mEq/L [facility] 10/13/2004 12:0 1 EDT 10/13/2004 12:01 EDT Hilton Álvarez MD CHEMISTRY & BLOOD GAS ORDE RABLES Final Result Performing Organization Address [facility] Co de Phone Number [facility] [address] [place] [address] * BACTERIAL CULTURE/SMEAR, RESPIRATORY (10/13/2004 12:00 EDT) [facility] Specimen Description Sputum [facility] Gram Smear Result Many Polys Few Squamous epithelial cells Alveolar macrophages present Respiratory epithelial cells present No bacteria seen [facility] Result No growth [facility] Report Status Final [id number] [facility] 10/13/2004 12:0 0 EDT 10/13/2004 12:21 EDT Hilton Álvarez MD MICROBIOLOGY - GENERAL ORD ERABLES Final Result Performing Organization Address City/[facility]/ZIP Co de Phone Number [facility] [address] [place] [address] * UA REFLEX (10/13/2004 12:00 EDT) [facility] UA Billing Microscopic not indicated. [facility] 10/13/2004 12:0 0 EDT 10/13/2004 12:00 EDT Hilton Álvarez MD URINALYSIS ORDERABLES Jacquie l Result Performing Organization Address [facility] Co de Phone Number [facility] [address] [place] [address] * SODIUM, URINE RANDOM (10/13/2004 12:00 EDT) Sodium, Ur 49.0 mEq/L [facility] 10/13/2004 12:0 0 EDT 10/13/2004 12:00 EDT Hilton Álvarez MD URINALYSIS ORDERABLES Jacquie l Result Performing Organization Address [facility] Phone Number [facility] [address] [place] [address] * URINALYSIS (10/13/2004 12:00 EDT) Color, UA Yellow [facility] Clarity, UA Cloudy [facility] Glucose, UA Norm NORM [facility] Bilirubin, UA Neg NEG TRUE [facility] Ketones, UA Neg NEG [facility] Specific [place], Urine 1.020 1.005 - 1.02 [facility] Blood, UA Neg NEG [facility] pH, UA 6.5 5.0 - 9.0 [facility] Protein, UA Neg NEG [facility] Urobilinogen, UA Norm NORM mg/dL [facility] Nitrite, UA Neg NEG [facility] Leuk Esterase Neg NEG TRUE STEVENS [facility] 10/13/2004 12:0 0 EDT 10/13/2004 12:00 EDT Hilton Álvarez MD URINALYSIS ORDERABLES Jacquie l Result Performing Organization Address [facility] de Phone Number [facility] [address] [place] [address] * CT HEAD WO CONTRAST (10/13/2004 10:50 [...] new CT findings on 10/13/04 at 1245. /lds Narrative 03/02/2009 13:29 EDT H/O TUMOR RESECTION [...] new CT findings on 10/13/04 at 1245. /[facility] Trice Scott MD IMG CT ORDERABLES Final Re sult * BACTERIAL CULTURE, BLOOD (10/13/2004 10:25 EDT) Specimen Description Blood Right Arm Pediatric bottle received [facility] Result No growth [facility] Report Status Final [id number] [facility] 10/13/2004 10:2 5 EDT 10/13/2004 11:42 EDT Hilton Álvarez MD MICROBIOLOGY - GENERAL ORD ERABLES Final Result Performing Organization Address [facility] Co de Phone Number [facility] [address] [place] [address] * BACTERIAL CULTURE, BLOOD (10/13/2004 10:15 EDT) [facility] Specimen Description Blood Arterial Line [facility] Result No growth [facility] Report Status Final [id number] [facility] 10/13/2004 10:1 5 EDT 10/13/2004 11:41 EDT Hilton Álvarez MD MICROBIOLOGY - GENERAL ORD ERABLES Final Result Performing Organization Address [facility] Co de Phone Number [facility] [address] [place] [address] * (ABNORMAL) REFRACTOMETER SPECIFIC GRAVITY, URINE (10/13/2004 8:19 EDT) Pathologist [facility] Refractometer SG,Urine 1.052(H) 1.005 - 1.02 [facility] Comment: Refractometer specific gravity Results greater than 1.035 suggest possible interference from glucose or radiographic dye. 10/13/2004 8:19 EDT 10/13/2004 8:19 EDT Hilton Álvarez MD URINALYSIS ORDERABLES Jacquie l Result Performing Organization Address [facility] Co de Phone Number [facility] [address] [place] [address] * OSMOLALITY (10/13/2004 8:16 EDT) Osmolality Cintia 287 MOS/KG SHERI [facility] 10/13/2004 8:16 EDT 10/13/2004 8:16 EDT Hilton Álvarez MD CHEMISTRY & BLOOD GAS ORDEmerald HANNON Final Result Performing Organization Address [facility] de Phone Number [facility] [address] [place] [address] * (ABNORMAL) ELECTROLYTES (10/13/2004 8:16 EDT) Sodium 133(L) 136 - 145 mEq/L [facility] Potassium 3.8 3.6 - 5.2 mEq/L [facility] Chloride 99 96 - 110 mEq/L [facility] CO2 27 24 - 32 mEq/L [facility] 10/13/2004 8:16 EDT 10/13/2004 8:16 EDT Hilton Álvarez MD CHEMISTRY & BLOOD GAS ORDE RABREBECA Final Result Performing Organization Address [facility] de Phone Number [facility] [address] [place] [address] * PORTABLE CHEST 1 VIEW (10/13/2004 7:00 [...] the right, but new on the left. /liu Alexus Davey MD IMG DIAGNOSTIC IMAGING HERMES HANNON Final Result * PTT (10/13/2004 5:52 EDT) PTT 27 23 - 34 secs [facility] Comment:Therapeutic Heparin range: 72-120 seconds 10/13/2004 5:52 EDT 10/13/2004 5:52 EDT Hilton Álvarez MD HEMATOLOGY & PF4 ORDERABLE S Final Result [facility] [address] [place] [address] * (ABNORMAL) PROTIME (10/13/2004 5:52 EDT) Pro Time 16.1(H) 12.3 - 14.7 secs [facility] G[facility] I.N.R. 1.3(H) 0.9 - 1.1 Ratio [facility] Comment: Moderate Intensity Coumadin INR = 2.0-3.0 Adjustments in anticoagulant therapy dose should be based upon the INR and NOT the Pro Time. 10/13/2004 5:52 EDT 10/13/2004 5:52 EDT Hilton Álvarez MD HEMATOLOGY & PF4 ORDERABLE S Final Result Performing Organization Address [facility] de Phone Number [facility] [address] [place] [address] * CREATININE (10/13/2004 5:52 EDT) Creatinine 0.7 0.6 - 1.2 mg/dl [facility] 10/13/2004 5:52 EDT 10/13/2004 5:52 EDT Hilton Álvarez MD HISTORICAL LAB FOR SQ LOAD Final Result Performing Organization Address [facility] de Phone Number [facility] [address] [place] [address] * (ABNORMAL) HEMAGRAM (10/13/2004 5:52 EDT) WBC 13.29(H) 4.5 - 13.0 K/cmm [facility] RBC 3.59(L) 4.50 - 5.30 M/cmm [facility] Hemoglobin 10.2(L) 13.0 - 16.0 gm/dl [facility] HCT 29.4(L) 37.0 - 49.0 % [facility] MCV 82 78 - 98 fl [facility] MCH 28.3 pg [facility] MCHC 34.5 gm/dl [facility] PLT 330(H) 156 - 312 K/cmm [facility] RDW-CV 15.8 % [facility] 10/13/2004 5:52 EDT 10/13/2004 5:52 EDT us Hilton Álvarez MD HEMATOLOGY & PF4 ORDERABLE S Final Result Performing Organization Address [facility]/ZIP Co de Phone Number [facility] [address] [place] [address] * BUN (10/13/2004 5:52 EDT) Pathologist [facility] BUN 16 8 - 21 mg/dl [facility] 10/13/2004 5:52 EDT 10/13/2004 5:52 EDT us Hilton lÁvarez MD CHEMISTRY & BLOOD GAS ORDE [facility] Final Result Performing Organization Address [facility] Co de Phone Number [facility] [address] [place] [address] * (ABNORMAL) BLOOD GAS, G3 ISTAT (10/13/2004 4:34 EDT) [facility] pH, i-STAT 7.50(H) 7.35 - 7.45 ANISHA [...] [facility] Sample Type Arterial ANISHA MCFARLAND automotive instructor ID [id number] Test Performed by Respiratory [facility] 10/13/2004 4:34 EDT 10/13/2004 5:03 EDT us Hilton Álvarez MD CHEMISTRY & BLOOD GAS ORDE [facility] Final Result Performing Organization Address [facility] Co de Phone Number [facility] [address] [place] [address] * (ABNORMAL) REFRACTOMETER SPECIFIC GRAVITY, URINE (10/13/2004 4:33 EDT) Pathologist [facility] Refractometer SG,Urine 1.036(H) 1.005 - 1.02 [facility] Comment: Refractometer specific gravity Results greater than 1.035 suggest possible interference from glucose or radiographic dye. 10/13/2004 4:33 EDT 10/13/2004 4:33 EDT Hilton Álvarez MD URINALYSIS ORDERABLES Jacquie l Result Performing Organization Address [facility] de Phone Number [facility] [address] [place] [address] * SODIUM, URINE RANDOM (10/13/2004 4:33 EDT) Sodium, Ur 168.0 mEq/L [facility] 10/13/2004 4:33 EDT 10/13/2004 4:33 EDT Hilton Álvarez MD URINALYSIS ORDERABLES Jacquie l Result Performing Organization Address [facility] Phone Number [facility] [address] [place] [address] * OSMOLALITY (10/13/2004 4:15 EDT) Osmolality Cintia 287 MOS/KG SHERI [facility] 10/13/2004 4:15 EDT 10/13/2004 4:33 EDT Hilton Álvarez MD CHEMISTRY & BLOOD GAS ORDE RABLES Final Result Performing Organization Address [facility] Phone Number [facility] [address] [place] [address] * (ABNORMAL) ELECTROLYTES (10/13/2004 4:15 EDT) Sodium 135(L) 136 - 145 mEq/L [facility] Potassium 3.7 3.6 - 5.2 mEq/L [facility] Chloride 101 96 - 110 mEq/L [facility] CO2 25 24 - 32 mEq/L [facility] 10/13/2004 4:15 EDT 10/13/2004 4:33 EDT us Hilton Álvarez MD CHEMISTRY & BLOOD GAS ORDE RABLES Final Result Performing Organization Address City/[facility]/ZIP Co de Phone Number [facility] [address] [place] [address] * SODIUM (10/13/2004 2:03 EDT) Sodium 138 136 - 145 mEq/L [facility] 10/13/2004 2:03 EDT 10/13/2004 2:03 EDT us Hilton Álvarez MD CHEMISTRY & BLOOD GAS ORDE RIDDHI Final Result Performing Organization Address [facility] Co de Phone Number [facility] [address] [place] [address] * (ABNORMAL) BLOOD GAS, G3 ISTAT (10/13/2004 0:01 EDT) pH, i-STAT 7.48(H) 7.35 - 7.45 [facility] pCO2, i-STAT 35 35 - 45 mmHg [facility] pO2, i-STAT 115(H) 85 - 100 mmHg [facility] TCO2, i-STAT 27 mEq/L FRANKIE [facility] O2 Saturation 99 % TRUE STEVENS [facility] Temperature 36.2 C [facility] FIO2 .50 [facility] Vent Support MODE:IMV,TYPE:V olume,RATE=13,P EEP=05 [facility] Sample Type Arterial 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 New mild right lower lobe atelectasis. 2. Satisfactory positioning of tubes. /liu Narrative 03/02/2009 13:28 EDT HX BRAIN TUMOR [...] lobe atelectasis. 2. Satisfactory positioning of tubes. liu Trice Scott MD IMG DIAGNOSTIC IMAGING ORD ERABLES Final Result * CT HEAD WO CONTRAST (10/12/2004 23:12 [...] left ethmoid sinuses. The ventricles are age-appropriate. /[facility] Narrative 03/02/2009 13:28 EDT S/P SUPRACELLAR TUMOR [...] left ethmoid sinuses. The ventricles are age-appropriate. /[facility] Tony Gómez MD IM CT ORDERABLES Final R esult * OSMOLALITY, URINE (10/12/2004 23:00 EDT) Osmolality, Ur 803 MOS/KG HOLLY [facility] 10/12/2004 23:0 0 EDT 10/12/2004 23:25 EDT Hilton Álvarez MD URINALYSIS ORDERABLES Jacquie l Result Performing Organization Address [facility] Phone Number [facility] [address] [place] [address] * SODIUM, URINE RANDOM (10/12/2004 23:00 EDT) Sodium, Ur 115.0 mEq/L [facility] 10/12/2004 23:0 0 EDT 10/12/2004 23:25 EDT Hilton Álvarez MD URINALYSIS ORDERABLES Jacquie l Result Performing Organization Address [facility] Phone Number [facility] [address] [place] [address] * PTT (10/12/2004 23:00 EDT) Pathologist [facility] PTT 28 23 - 34 secs [facility] Comment:Therapeutic Heparin range: 72-120 seconds 10/12/2004 23:0 0 EDT 10/12/2004 23:25 EDT Hilton Álvarez MD HEMATOLOGY & PF4 ORDERABLE S Final Result Performing Organization Address [facility] Phone Number [facility] [address] [place] [address] * (ABNORMAL) PROTIME (10/12/2004 23:00 EDT) Pro Time 17.5(H) 12.3 - 14.7 secs [facility] I.N.R. 1.4(H) 0.9 - 1.1 Ratio [facility] Comment: Moderate Intensity Coumadin INR = 2.0-3.0 Adjustments in anticoagulant therapy dose should be based upon the INR and NOT the Pro Time. 10/12/2004 23:0 0 EDT 10/12/2004 23:25 EDT us Hilton Álvarez MD HEMATOLOGY & PF4 ORDERABLE S Final Result Performing Organization Address [facility] de Phone Number [facility] [address] [place] [address] * OSMOLALITY (10/12/2004 23:00 EDT) Osmolality Cintia 294 MOS/KG SHERI [facility] 10/12/2004 23:0 0 EDT 10/12/2004 23:25 EDT us Hilton Álvarez MD CHEMISTRY & BLOOD GAS ORDE RABLES Final Result Performing Organization Address [facility] de Phone Number [facility] [address] [place] [address] * ELECTROLYTES (10/12/2004 23:00 EDT) Sodium 136 136 - 145 mEq/L [facility] Potassium 3.9 3.6 - 5.2 mEq/L [facility] Chloride 103 96 - 110 mEq/L [facility] CO2 26 24 - 32 mEq/L [facility] 10/12/2004 23:0 0 EDT 10/12/2004 23:25 EDT us Hilton Álvarez MD CHEMISTRY & BLOOD GAS ORDE RABLES Final Result Performing Organization Address [facility] de Phone Number [facility] [address] [place] [address] * CREATININE (10/12/2004 23:00 EDT) Creatinine 0.8 0.6 - 1.2 mg/dl [facility] 10/12/2004 23:0 0 EDT 10/12/2004 23:25 EDT us Hilton Álvarez MD HISTORICAL LAB FOR SQ LOAD Final Result Performing Organization Address [facility] de Phone Number [facility] [address] [place] [address] * (ABNORMAL) HEMAGRAM (10/12/2004 23:00 EDT) WBC 16.05(H) 4.5 - 13.0 K/cmm [facility] RBC 3.73(L) 4.50 - 5.30 M/cmm [facility] Hemoglobin 10.3(L) 13.0 - 16.0 gm/dl [facility] HCT 30.8(L) 37.0 - 49.0 % [facility] MCV 83 78 - 98 fl [facility] MCH 27.6 pg [facility] MCHC 33.5 gm/dl [facility] PLT 366(H) 156 - 312 K/cmm [facility] RDW-CV 15.6 % [facility] 10/12/2004 23:0 0 EDT 10/12/2004 23:25 EDT us Hilton Álvarez MD HEMATOLOGY & PF4 ORDERABLE S Final Result [facility] [address] [place] [address] * BUN (10/12/2004 23:00 EDT) BUN 18 8 - 21 mg/dl [facility] 10/12/2004 23:0 0 EDT 10/12/2004 23:25 EDT us Hilton Álvarez MD CHEMISTRY & BLOOD G[facility] Final Result [facility] [address] [place] [address] * CT ANGIO HEAD (10/12/2004 22:49 EDT) Anatomical Region Laterality Modality Other 10/12/2004 22:4 9 EDT Narrative 03/02/2009 13:28 EDT 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 VESSELS CT ANGIOGRAPHY OF THE [place] OF [place]: 10/12/2004, 22:35 PM IMPRESSIONS: Anatomical variation of the burns [place] of [place], but no vascular occlusion is demonstrated. CLINICAL HISTORY: Status post craniopharyngeal resection with clipping bleeding vessel. Evaluate intracranial circulation. TECHNIQUE: Dynamic contrast enhanced scans of the burns [place] of [place] were obtained with off line [...] R/O EVAL. VESSELS CT ANGIOGRAPHY OF THE [place]: 10/12/2004, 22:35 PM IMPRESSIONS: Anatomical variation of the burns [place] of [place], but no vascular occlusion is demonstrated. CLINICAL HISTORY: Status post craniopharyngeal resection with clipping bleeding vessel. Evaluate intracranial circulation. TECHNIQUE: Dynamic contrast enhanced scans of the burns [place] of [place] were obtained with off line [...] and supplying only the right PICA. /tns us Agostino J Visioni MD IMG CT ORDERABLES Final Re sult * (ABNORMAL) BLOOD GAS, EG6 ISTAT (10/12/2004 19:31 EDT) pH, i-STAT 7.56(H) 7.35 - 7.45 [facility] pCO2, i-STAT 23(L) 35 - 45 mmHg [facility] pO2, i-STAT 160(H) 85 - 100 mmHg [facility] TCO2, i-STAT 21 mEq/L [facility] O2 Saturation 100 % [facility] Sodium, i-STAT 135(L) 136 - 145 mEq/L [facility] Potassium, i-STAT 4.1 3.6 - 5.2 mEq/L [facility] Hematocrit,iSTA T 22(LL) 37 - 49 % [facility] Temperature Body Temp not noted; 37 degrees assumed. C [facility] FIO2 NOT GIVEN [facility] Sample Type Arterial [facility] automotive instructor ID [id number] Test performed by Anesthesia. [facility] 10/12/2004 19:3 1 EDT 10/13/2004 7:36 EDT us Hilton Álvarez MD CHEMISTRY & BLOOD GAS EHRMES HANNON Final Result [facility] [address] [place] [address] * (ABNORMAL) BLOOD GAS, EG6 ISTAT (10/12/2004 16:39 EDT) pH, i-STAT 7.52(H) 7.35 - 7.45 [facility] pCO2, i-STAT 25(L) 35 - 45 mmHg [facility] pO2, i-STAT 93 85 - 100 mmHg [facility] TCO2, i-STAT 21 mEq/L [facility] O2 Saturation 98 % [facility] Sodium, i-STAT 134(L) 136 - 145 mEq/L [facility] Potassium, i-STAT 3.9 3.6 - 5.2 mEq/L [facility] Hematocrit,iSTA T 25(L) 37 - 49 % [facility] Temperature Body Temp not noted; 37 degrees assumed. C [facility] FIO2 NOT GIVEN [facility] Sample Type Arterial [facility] automotive instructor ID [id number] Test performed by Anesthesia. [facility] 10/12/2004 16:3 9 EDT 10/13/2004 7:33 EDT us Hilton Álvarez MD CHEMISTRY & BLOOD GAS HERMES HANNON Final Result Performing Organization Address [facility] de Phone Number [facility] [address] [place] [address] * (ABNORMAL) BLOOD GAS, EG6 ISTAT (10/12/2004 15:29 EDT) pH, i-STAT 7.47(H) 7.35 - 7.45 [facility] pCO2, i-STAT 33(L) 35 - 45 mmHg [facility] pO2, i-STAT 154(H) 85 - 100 mmHg [facility] TCO2, i-STAT 25 mEq/L [facility] O2 Saturation 100 % [facility] Sodium, i-STAT 137 136 - 145 mEq/L [facility] Potassium, i-STAT 3.9 3.6 - 5.2 mEq/L [facility] Hematocrit,iSTA T 27(L) 37 - 49 % [facility] Temperature Body Temp not noted; 37 degrees assumed. C [facility] FIO2 NOT GIVEN [facility] Sample Type Arterial [facility] automotive instructor ID [id number] Test performed by Anesthesia. [facility] 10/12/2004 15:2 9 EDT 10/13/2004 7:32 EDT Hilton Álvarez MD CHEMISTRY & BLOOD GAS HERMSE HANNON Final Result Performing Organization Address [facility] Co de Phone Number [facility] [address] [place] [address] * GLUCOSE, GLUCOMETER (10/12/2004 15:21 EDT) Glucose, Fingerstick 109 70 - 110 mg/dl [facility] Interface Developer ID [id number] Test Performed by Nursing Services [facility] 10/12/2004 15:2 1 EDT 10/13/2004 7:27 EDT us Hilton Álvarez MD [facility] Final Result [facility] [address] [place] [address] * SURGICAL PATHOLOGY (10/12/2004 0:00 EDT) Pathology Report: SURGICAL PATHOLOGY REPORT Reports generated via electronic interface contain original data; however they are lacking the format of the original report. Caution should be taken when reading/interpreti ng unformatted reports. Name: ? MIGUEL ANGEL BURGOS ? Accession #: ? [id number] ? : ? 1990 (Age: 14) ??M ? Collect Date: ? 10/12/2004 ? Location: ? B005 ? Receive Date: ? 10/13/2004 ? Provider: HILTON ÁLVAREZ MD Copy to: OTO DIAZ MD ? Final Pathologic Diagnosis: A. [...] x 0.6 x 0.2 cm in aggregate. Pain[employer] Apprentice tissue is submitted for scrape preparation and [...] 10: 08 EDT Hilton Álvarez MD PATHOLOGY ORDERABLES Final Result [facility] [address] [place] [address] * CHEST PA (10/10/2004 14:35 EDT) Anatomical [...] The bony structures appear normal for age. /[facility] Procedure Note Delgado Valdes Jr., MD / Maxi Kirby MD - 03/03/2009 CYST R/O PICC PLACEMENT RIGHT BASILIC PA CHEST, 10/10/04 HISTORY: Patient status post PICC placement. FINDINGS: There is a right PIC catheter with its tip in the lower SVC near the right atrial junction. The cardiomediastinal silhouette is normal and the lungs are clear. The bony structures appear normal for age. /[facility] Hilton Álvarez MD IMG DIAGNOSTIC IMAGING ORD ERABLES Final Result * MR HEAD W/WO CONTRAST (10/09/2004 12:20 [...] secondary to the most recent transsphenoidal surgery. /[facility] 03/02/2009 11:36 EDT S/P TRANSPENOIDAL CYST DRAINAGE [...] secondary to the most recent transsphenoidal surgery. /[facility] us Hilton Álvarez MD IMG MRI ORDERABLES Final R esult * REFRACTOMETER SPECIFIC GRAVITY, URINE (10/08/2004 16:00 EDT) Refractometer SG,Urine 1.022 1.005 - 1.02 [facility] Comment:Refractometer specif ic gravity 10/08/2004 16:0 0 EDT 10/08/2004 16:14 EDT Hilton Álvarez MD URINALYSIS ORDERABLES Jacquie l Result Performing Organization Address [facility] de Phone Number [facility] [address] [place] [address] * OSMOLALITY, URINE (10/08/2004 8:30 EDT) Osmolality, Ur 906 MOS/KG [facility] 10/08/2004 8:30 EDT 10/08/2004 8:40 EDT Hilton Álvarez MD URINALYSIS ORDERABLES Jacquie l Result Performing Organization Address [facility] de Phone Number [facility] [address] [place] [address] * SODIUM, URINE RANDOM (10/08/2004 8:30 EDT) Sodium, Ur 137.0 mEq/L [facility] 10/08/2004 8:30 EDT 10/08/2004 8:40 EDT us Hilton Álvarez MD URINALYSIS ORDERABLES Jacquie l Result Performing Organization Address [facility] Co de Phone Number [facility] [address] [place] [address] * OSMOLALITY, URINE (10/08/2004 0:30 EDT) Osmolality, Ur 727 MOS/KG [facility] 10/08/2004 0:30 EDT 10/08/2004 0:32 EDT Hilton Álvarez MD URINALYSIS ORDERABLES Jacquie l Result Performing Organization Address [facility] de Phone Number [facility] [address] [place] [address] * SODIUM, URINE RANDOM (10/08/2004 0:30 EDT) Sodium, Ur 186.0 mEq/L [facility] 10/08/2004 0:30 EDT 10/08/2004 0:32 EDT Hilton Álvarez MD URINALYSIS ORDERABLES Jacquie l Result Performing Organization Address [facility] Phone Number [facility] [address] [place] [address] * OSMOLALITY (10/08/2004 0:25 EDT) Osmolality Cintia 302 MOS/KG SH[facility] 10/08/2004 0:25 EDT 10/08/2004 0:32 EDT Hilton Álvarez MD CHEMISTRY & BLOOD GAS ORDE RABLES Final Result Performing Organization Address [facility] de Phone Number [facility] [address] [place] [address] * (ABNORMAL) ELECTROLYTES (10/08/2004 0:25 EDT) Sodium 145 136 - 145 mEq/L [facility] Potassium 3.2(L) 3.6 - 5.2 mEq/L [facility] Chloride 116(H) 96 - 110 mEq/L [facility] CO2 19(L) 24 - 32 mEq/L [facility] 10/08/2004 0:25 EDT 10/08/2004 0:32 EDT Hilton Álvarez MD CHEMISTRY & BLOOD GAS HERMES HANNON Final Result Performing Organization Address [facility] Co de Phone Number [facility] [address] [place] [address] * REFRACTOMETER SPECIFIC GRAVITY, URINE (10/07/2004 19:00 EDT) Refractometer SG,Urine 1.021 1.005 - 1.02 [facility] Comment:Refractometer specif ic gravity 10/07/2004 19:0 0 EDT 10/07/2004 19:38 EDT Hilton Álvarez MD URINALYSIS ORDERABLES Jacquie l Result Performing Organization Address [facility] de Phone Number [facility] [address] [place] [address] * OSMOLALITY, URINE (10/07/2004 19:00 EDT) Osmolality, Ur 817 MOS/KG [facility] 10/07/2004 19:0 0 EDT 10/07/2004 19:38 EDT Hilton Álvarez MD URINALYSIS ORDERABLES Jacquie l Result Performing Organization Address [facility] Co de Phone Number [facility] [address] [place] [address] * SODIUM, URINE RANDOM (10/07/2004 19:00 EDT) Sodium, Ur 272.0 mEq/L [facility] 10/07/2004 19:0 0 EDT 10/07/2004 19:38 EDT Hilton Álvarez MD URINALYSIS ORDERABLES Jacquie l Result Performing Organization Address [facility] Co de Phone Number [facility] [address] [place] [address] * OSMOLALITY (10/07/2004 19:00 EDT) Osmolality Cintia 300 MOS/KG SHERI [facility] 10/07/2004 19:0 0 EDT 10/07/2004 19:37 EDT Hilton Álvarez MD CHEMISTRY & BLOOD GAS [facility] Final Result Performing Organization Address [facility] de Phone Number [facility] [address] [place] [address] * ELECTROLYTES (10/07/2004 19:00 EDT) Pathologist [facility] Sodium 144 136 - 145 mEq/L [facility] Potassium 3.8 3.6 - 5.2 mEq/L [facility] Chloride 109 96 - 110 mEq/L [facility] CO2 25 24 - 32 mEq/L [facility] 10/07/2004 19:0 0 EDT 10/07/2004 19:37 EDT Hilton Álvarez MD CHEMISTRY & BLOOD GAS ORDE RIDDHI Final Result Performing Organization Address [facility] de Phone Number [facility] [address] [place] [address] * REFRACTOMETER SPECIFIC GRAVITY, URINE (10/07/2004 11:47 EDT) Pathologist [facility] Refractometer SG,Urine 1.019 1.005 - 1.02 [facility] Comment: Refractometer specific gravity Results greater than 1.035 suggest possible interference from glucose or radiographic dye. 10/07/2004 11:4 7 EDT 10/07/2004 11:47 EDT Hilton Álvarez MD URINALYSIS ORDERABLES Jacquie l Result Performing Organization Address [facility] Phone Number [facility] [address] [place] [address] * OSMOLALITY, URINE (10/07/2004 11:47 EDT) Osmolality, Ur 801 MOS/KG [facility] 10/07/2004 11:4 7 EDT 10/07/2004 11:47 EDT Hilton Álvarez MD URINALYSIS ORDERABLES Jacquie l Result Performing Organization Address [facility] Co de Phone Number [facility] [address] [place] [address] * SODIUM, URINE RANDOM (10/07/2004 11:47 EDT) Sodium, Ur 198.0 mEq/L [facility] 10/07/2004 11:4 7 EDT 10/07/2004 11:47 EDT Hilton Álvarez MD URINALYSIS ORDERABLES Jacquie l Result Performing Organization Address [facility] Co de Phone Number [facility] [address] [place] [address] * REFRACTOMETER SPECIFIC GRAVITY, URINE (10/07/2004 4:20 EDT) Refractometer SG,Urine 1.017 1.005 - 1.02 [facility] Comment:Refractometer specif ic gravity 10/07/2004 4:20 EDT 10/07/2004 4:20 EDT Hilton Álvarez MD URINALYSIS ORDERABLES Jacquie l Result Performing Organization Address [facility] de Phone Number [facility] [address] [place] [address] * OSMOLALITY, URINE (10/07/2004 4:20 EDT) Osmolality, Ur 682 MOS/KG [facility] 10/07/2004 4:20 EDT 10/07/2004 4:20 EDT us Hilton Álvarez MD URINALYSIS ORDERABLES Jacquie l Result Performing Organization Address [facility] Co de Phone Number [facility] [address] [place] [address] * SODIUM, URINE RANDOM (10/07/2004 4:20 EDT) Sodium, Ur 122.0 mEq/L [facility] 10/07/2004 4:20 EDT 10/07/2004 4:20 EDT Hilton Álvarez MD URINALYSIS ORDERABLES Jacquie l Result Performing Organization Address [facility] de Phone Number [facility] [address] [place] [address] * OSMOLALITY (10/07/2004 4:20 EDT) Pathologist [facility] Osmolality Cintia 304 MOS/KG SHERI [facility] 10/07/2004 4:20 EDT 10/07/2004 4:20 EDT Hilton Álvarez MD CHEMISTRY & BLOOD GAS [facility] Final Result Performing Organization Address [facility] de Phone Number [facility] [address] [place] [address] * (ABNORMAL) ELECTROLYTES (10/07/2004 4:20 EDT) [facility] Sodium 145 136 - 145 mEq/L [facility] Potassium 3.9 3.6 - 5.2 mEq/L [facility] Chloride 111(H) 96 - 110 mEq/L [facility] CO2 25 24 - 32 mEq/L [facility] 10/07/2004 4:20 EDT 10/07/2004 4:20 EDT Hilton Álvarez MD CHEMISTRY & BLOOD GAS ORDE RABLES Final Result Performing Organization Address [facility] de Phone Number [facility] [address] [place] [address] * REFRACTOMETER SPECIFIC GRAVITY, URINE (10/06/2004 18:33 EST) [facility] Refractometer SG,Urine 1.021 1.005 - 1.02 [facility] Comment: Refractometer specific gravity Results greater than 1.035 suggest possible interference from glucose or radiographic dye. 10/06/2004 18:3 3 EST 10/06/2004 18:33 EST Hilton Álvarez MD URINALYSIS ORDERABLES Jacquie l Result Performing Organization Address [facility] Phone Number [facility] [address] [place] [address] * OSMOLALITY, URINE (10/06/2004 18:33 EST) Osmolality, Ur 782 MOS/KG [facility] 10/06/2004 18:3 3 EST 10/06/2004 18:33 EST Hilton Álvarez MD URINALYSIS ORDERABLES Jacquie l Result Performing Organization Address [facility] Phone Number [facility] [address] [place] [address] * SODIUM, URINE RANDOM (10/06/2004 18:33 EST) Sodium, Ur 138.0 mEq/L [facility] 10/06/2004 18:3 3 EST 10/06/2004 18:33 EST Hilton Álvarez MD URINALYSIS ORDERABLES Jacquie l Result Performing Organization Address [facility] Phone Number [facility] [address] [place] [address] * OSMOLALITY (10/06/2004 18:32 EST) Osmolality Cintia 303 MOS/KG [facility] 10/06/2004 18:3 2 EST 10/06/2004 18:32 EST Hilton Álvarez MD CHEMISTRY & BLOOD GAS ORDE RABLES Final Result Performing Organization Address [facility] Phone Number [facility] [address] [place] [address] * (ABNORMAL) ELECTROLYTES (10/06/2004 18:32 EST) Sodium 147(H) 136 - 145 mEq/L [facility] Potassium 3.6 3.6 - 5.2 mEq/L [facility] Chloride 111(H) 96 - 110 mEq/L [facility] CO2 24 24 - 32 mEq/L [facility] 10/06/2004 18:3 2 EST 10/06/2004 18:32 EST Hilton Álvarez MD CHEMISTRY & BLOOD GAS ORDE RIDDHI Final Result Performing Organization Address [facility] de Phone Number [facility] [address] [place] [address] * OSMOLALITY (10/06/2004 14:45 EST) Osmolality Cintia 306 MOS/KG MELONIENoe ELLE [facility] 10/06/2004 14:4 5 EST 10/06/2004 14:51 EST Hilton Álvarez MD CHEMISTRY & BLOOD GAS ORDE RABREBECA Final Result Performing Organization Address [facility] de Phone Number [facility] [address] [place] [address] * (ABNORMAL) ELECTROLYTES (10/06/2004 14:45 EST) Sodium 146(H) 136 - 145 mEq/L [facility] Potassium 3.7 3.6 - 5.2 mEq/L [facility] Chloride 111(H) 96 - 110 mEq/L [facility] CO2 26 24 - 32 mEq/L [facility] 10/06/2004 14:4 5 EST 10/06/2004 14:51 EST Hilton Álvarez MD CHEMISTRY & BLOOD GAS ORDE RABREBECA Final Result Performing Organization Address [facility] de Phone Number [facility] [address] [place] [address] * REFRACTOMETER SPECIFIC GRAVITY, URINE (10/06/2004 14:45 EST) Refractometer SG,Urine 1.021 1.005 - 1.02 [facility] 10/06/2004 14:4 5 EST 10/06/2004 14:52 EST Hilton Álvarez MD URINALYSIS ORDERABLES Jacquie l Result Performing Organization Address [facility] Phone Number [facility] [address] [place] [address] * OSMOLALITY, URINE (10/06/2004 14:45 EST) Osmolality, Ur 762 MOS/KG [facility] 10/06/2004 14:4 5 EST 10/06/2004 14:52 EST Hilton Álvarez MD URINALYSIS ORDERABLES Jacquie l Result Performing Organization Address [facility] Phone Number [facility] [address] [place] [address] * SODIUM, URINE RANDOM (10/06/2004 14:45 EST) Sodium, Ur 132.0 mEq/L [facility] 10/06/2004 14:4 5 EST 10/06/2004 14:52 EST Hilton Álvarez MD URINALYSIS ORDERABLES Jacquie l Result Performing Organization Address [facility] Phone Number [facility] [address] [place] [address] * OSMOLALITY (10/06/2004 11:00 EST) Osmolality Cintia 299 MOS/KG SHERI [facility] 10/06/2004 11:0 0 EST 10/06/2004 11:08 EST Hilton Álvarez MD CHEMISTRY & BLOOD GAS ORDE RABLES Final Result Performing Organization Address [facility] Phone Number [facility] [address] [place] [address] * ELECTROLYTES (10/06/2004 11:00 EST) Sodium 145 136 - 145 mEq/L [facility] Potassium 3.6 3.6 - 5.2 mEq/L [facility] Chloride 110 96 - 110 mEq/L [facility] CO2 25 24 - 32 mEq/L [facility] 10/06/2004 11:0 0 EST 10/06/2004 11:08 EST Hilton Álvarez MD CHEMISTRY & BLOOD GAS HERMES HANNON Final Result Performing Organization Address [facility] de Phone Number [facility] [address] [place] [address] * REFRACTOMETER SPECIFIC GRAVITY, URINE (10/06/2004 11:00 EST) Refractometer SG,Urine 1.019 1.005 - 1.02 [facility] 10/06/2004 11:0 0 EST 10/06/2004 11:10 EST Hilton Álvarez MD URINALYSIS ORDERABLES Jacquie l Result Performing Organization Address [facility] Phone Number [facility] [address] [place] [address] * OSMOLALITY, URINE (10/06/2004 11:00 EST) Osmolality, Ur 735 MOS/KG [facility]JAS [facility] 10/06/2004 11:0 0 EST 10/06/2004 11:10 EST Hilton Álvarez MD URINALYSIS ORDERABLES Jacquie l Result Performing Organization Address [facility] de Phone Number [facility] [address] [place] [address] * SODIUM, URINE RANDOM (10/06/2004 11:00 EST) Sodium, Ur 140.0 mEq/L [facility] 10/06/2004 11:0 0 EST 10/06/2004 11:10 EST Hilton Álvarez MD URINALYSIS ORDERABLES Jacquie l Result [facility] [address] [place] [address] * OSMOLALITY, URINE (10/06/2004 6:40 EST) Osmolality, Ur 522 MOS/KG HOLLY HER [facility] 10/06/2004 6:40 EST 10/06/2004 7:03 EST Hilton Álvarez MD URINALYSIS ORDERABLES Jacquie l Result Performing Organization Address [facility] Co de Phone Number [facility] [address] [place] [address] * SODIUM, URINE RANDOM (10/06/2004 6:40 EST) Sodium, Ur 92.0 mEq/L [facility] 10/06/2004 6:40 EST 10/06/2004 7:03 EST Hilton Álvarez MD URINALYSIS ORDERABLES Jacquie l Result Performing Organization Address [facility] de Phone Number [facility] [address] [place] [address] * OSMOLALITY (10/06/2004 6:40 EST) Osmolality Cintia 301 MOS/KG SH[facility] 10/06/2004 6:40 EST 10/06/2004 7:01 EST Hilton Álvarez MD CHEMISTRY & BLOOD G[facility] Final Result Performing Organization Address [facility] Co de Phone Number [facility] [address] [place] [address] * ELECTROLYTES (10/06/2004 6:40 EST) Sodium 142 136 - 145 mEq/L [facility] Potassium 3.9 3.6 - 5.2 mEq/L [facility] Chloride 108 96 - 110 mEq/L [facility] CO2 25 24 - 32 mEq/L [facility] 10/06/2004 6:40 EST 10/06/2004 7:01 EST us Hilton Álvarez MD CHEMISTRY & BLOOD GAS ORDE RABLES Final Result Performing Organization Address [facility] de Phone Number [facility] [address] [place] [address] * OSMOLALITY (10/06/2004 2:44 EST) Osmolality Cintia 295 MOS/KG SH[facility] 10/06/2004 2:44 EST 10/06/2004 2:44 EST us Hilton Álvarez MD CHEMISTRY & BLOOD GAS ORDE RABLES Final Result Performing Organization Address [facility] Phone Number [facility] [address] [place] [address] * ELECTROLYTES (10/06/2004 2:44 EST) Sodium 143 136 - 145 mEq/L [facility] Potassium 4.0 3.6 - 5.2 mEq/L [facility] Chloride 107 96 - 110 mEq/L [facility] CO2 28 24 - 32 mEq/L [facility] 10/06/2004 2:44 EST 10/06/2004 2:44 EST Hilton Álvarez MD CHEMISTRY & BLOOD GAS ORDE RABLES Final Result Performing Organization Address [facility] de Phone Number [facility] [address] [place] [address] * OSMOLALITY, URINE (10/06/2004 2:43 EST) Osmolality, Ur 628 MOS/KG HOLLY HER [facility] 10/06/2004 2:43 EST 10/06/2004 2:43 EST us Hilton Álvarez MD URINALYSIS ORDERABLES Jacquie l Result Performing Organization Address [facility] de Phone Number [facility] [address] [place] [address] * SODIUM, URINE RANDOM (10/06/2004 2:43 EST) Sodium, Ur 115.0 mEq/L [facility] 10/06/2004 2:43 EST 10/06/2004 2:43 EST Hilton Álvarez MD URINALYSIS ORDERABLES Jacquie l Result Performing Organization Address [facility] de Phone Number [facility] [address] [place] [address] * OSMOLALITY, URINE (10/05/2004 22:11 EST) Osmolality, Ur 229 MOS/KG [facility] 10/05/2004 22:1 1 EST 10/05/2004 22:11 EST Hilton Álvarez MD URINALYSIS ORDERABLES Jacquie l Result Performing Organization Address [facility] Phone Number [facility] [address] [place] [address] * SODIUM, URINE RANDOM (10/05/2004 22:11 EST) Sodium, Ur 28.0 mEq/L [facility] 10/05/2004 22:1 1 EST 10/05/2004 22:11 EST Hilton Álvarez MD URINALYSIS ORDERABLES Jacquie l Result Performing Organization Address [facility] de Phone Number [facility] [address] [place] [address] * OSMOLALITY (10/05/2004 22:10 EST) Osmolality Cintia 297 MOS/KG [facility] 10/05/2004 22:1 0 EST 10/05/2004 22:10 EST us Hilton Álvarez MD CHEMISTRY & BLOOD GAS ORDE RIDDHI Final Result Performing Organization Address [facility]/ZIP Co de Phone Number [facility] [address] [place] [address] * ELECTROLYTES (10/05/2004 22:10 EST) Sodium 144 136 - 145 mEq/L [facility] Potassium 3.9 3.6 - 5.2 mEq/L [facility] Chloride 107 96 - 110 mEq/L [facility] CO2 26 24 - 32 mEq/L [facility] 10/05/2004 22:1 0 EST 10/05/2004 22:10 EST us Hilton Álvarez MD CHEMISTRY & BLOOD GAS ORDEmerald [facility] Final Result [facility] [address] [place] [address] * CT HEAD WO CONTRAST (10/05/2004 20:26 [...] /shravan Trice Scott MD IM CT ORDERABLES Final Re sult * OSMOLALITY, URINE (10/05/2004 18:24 EST) Osmolality, Ur 754 MOS/KG FLETC [facility] 10/05/2004 18:2 4 EST 10/05/2004 18:29 EST Hilton Álvarez MD URINALYSIS ORDERABLES Jacquie l Result Performing Organization Address [facility] Co de Phone Number [facility] [address] [place] [address] * SODIUM, URINE RANDOM (10/05/2004 18:24 EST) Sodium, Ur 216.0 mEq/L [facility] 10/05/2004 18:2 4 EST 10/05/2004 18:29 EST Hilton Álvarez MD URINALYSIS ORDERABLES Jacquie l Result Performing Organization Address [facility] de Phone Number [facility] [address] [place] [address] * OSMOLALITY (10/05/2004 18:06 EST) Osmolality Cintia 294 MOS/KG [facility] 10/05/2004 18:0 6 EST 10/05/2004 18:06 EST Hilton Álvarez MD CHEMISTRY & BLOOD GAS ORDE RABREBECA Final Result Performing Organization Address [facility] de Phone Number [facility] [address] [place] [address] * ELECTROLYTES (10/05/2004 18:06 EST) Sodium 141 136 - 145 mEq/L [facility] Potassium 4.4 3.6 - 5.2 mEq/L [facility] Chloride 106 96 - 110 mEq/L [facility] CO2 26 24 - 32 mEq/L [facility] 10/05/2004 18:0 6 EST 10/05/2004 18:06 EST Hilton Álvarez MD CHEMISTRY & BLOOD GAS ORDE RABLES Final Result Performing Organization Address [facility] Co de Phone Number [facility] [address] [place] [address] * OSMOLALITY, URINE (10/05/2004 15:36 EST) Osmolality, Ur 406 MOS/KG HOLLY [facility] 10/05/2004 15:3 6 EST 10/05/2004 15:36 EST Hilton Álvarez MD URINALYSIS ORDERABLES Jacquie l Result Performing Organization Address [facility] Phone Number [facility] [address] [place] [address] * SODIUM, URINE RANDOM (10/05/2004 15:36 EST) Sodium, Ur 109.0 mEq/L [facility] 10/05/2004 15:3 6 EST 10/05/2004 15:36 EST Hilton Álvarez MD URINALYSIS ORDERABLES Jacquie l Result Performing Organization Address [facility] Phone Number [facility] [address] [place] [address] * OSMOLALITY (10/05/2004 14:19 EST) Osmolality Cintia 296 MOS/KG [facility] 10/05/2004 14:1 9 EST 10/05/2004 14:19 EST Hilton Álvarez MD CHEMISTRY & BLOOD GAS ORDE PROSPERLES Final Result Performing Organization Address [facility] de Phone Number [facility] [address] [place] [address] * ELECTROLYTES (10/05/2004 14:19 EST) Sodium 141 136 - 145 mEq/L [facility] Potassium 4.3 3.6 - 5.2 mEq/L [facility] Chloride 108 96 - 110 mEq/L [facility] CO2 26 24 - 32 mEq/L [facility] 10/05/2004 14:1 9 EST 10/05/2004 14:19 EST Hilton Álvarez MD CHEMISTRY & BLOOD GAS ORDE RABLES Final Result [facility] [address] [place] [address] * CREATININE (10/05/2004 14:19 EST) Creatinine 0.7 0.6 - 1.2 mg/dl [facility] 10/05/2004 14:1 9 EST 10/05/2004 14:19 EST Hilton Álvarez MD HISTORICAL LAB FOR SQ LOAD Final Result Performing Organization Address [facility]/ZIP Co de Phone Number [facility] [address] [place] [address] * (ABNORMAL) HEMAGRAM (10/05/2004 14:19 EST) WBC 5.73 4.5 - 13.0 K/cmm [facility] RBC 3.87(L) 4.50 - 5.30 M/cmm [facility] Hemoglobin 10.6(L) 13.0 - 16.0 gm/dl [facility] HCT 29.6(L) 37.0 - 49.0 % [facility] MCV 76(L) 78 - 98 fl [facility] MCH 27.4 pg [facility] MCHC 35.9 gm/dl [facility] PLT 268 156 - 312 K/cmm [facility] RDW-CV 14.9 % [facility] 10/05/2004 14:1 9 EST 10/05/2004 14:19 EST Hilton Álvarez MD HEMATOLOGY & PF4 ORDERABLE S Final Result Performing Organization Address City/[facility]/ZIP Co de Phone Number [facility] [address] [place] [address] * BUN (10/05/2004 14:19 EST) BUN 16 8 - 21 mg/dl [facility] 10/05/2004 14:1 9 EST 10/05/2004 14:19 EST us Hilton Álvarez MD CHEMISTRY & BLOOD GAS HERMES HANNON Final Result Performing Organization Address [facility] Co de Phone Number [facility] [address] [place] [address] * (ABNORMAL) GLUCOSE, GLUCOMETER (10/05/2004 14:16 EST) [facility] Signature Glucose, Fingerstick 123(H) 70 - 110 mg/dl [facility] Interface Developer ID [id number] Test Performed by Nursing Services [facility] 10/05/2004 14:1 6 EST 10/06/2004 0:42 EST us Hilton Álvarez MD CHEMISTRY & BLOOD GAS HERMES HANNON Final Result Performing Organization Address [facility] Co de Phone Number [facility] [address] [place] [address] documented in this encounter Visit Diagnoses Not on filedocumented in this encounter
--- OUTSIDE RECORDS SUMMARY | 2024-06-28 14:00 | XMS_ITS | Encounter Summary ---
Author Organization [facility] Address [address] [place] [address] Care Team Providers Care Planning Director Name Role Phone Yan Demarco MD Primary Care Provider Corin Skinner MD Primary Care Provider Akil Serrano MD Primary Care Provider [phone] Encounter Details Date Type Department Care Team (Late st Contact Info) Description 10/15/2004 Before PRISM Converted Visit (Maple) [facility] - Maple conversion [address] [place] [address] Jose Armando Alejo MD [address] [place] [address] Social History Tobacco Use Types Packs/Day Years [...] 13:40 EST Office Visit [facility] Endocrinology - [facility] [address] [place] [address] Wilder Zaidi, [address] [facility] [address] [place] [address] 09/09/2024 10:20 EST Office Visit [facility] Endocrinology - [facility] [address] [place] [address] Day Littlejohn MD PhD [address] [facility] [address] [place] [address] documented as of this encounter Visit Diagnoses Not on filedocumented in this encounter Care Teams Planning Director Relationship Specialty Start Date End Date Yan Demarco MD [address] [place] [phone] PCP - General 08/22/09 02/20/10 Corin Skinner MD [address] [place] [phone] PCP - General 10/24/08 08/21/09 Akil Serrano MD [address] [facility] [place], [place] [id number] PCP - General 02/21/10 04/16/11 documented as of this encounter
--- OUTSIDE RECORDS SUMMARY | 2024-06-28 14:00 | XMS_ITS | Encounter Summary ---
Author Organization [facility] Address [address] [place] [address] Care Team Providers Care Spindraw Operator Name Role Phone Yan Demarco MD Primary Care Provider Corin Skinner MD Primary Care Provider [phone] Akil Serrano MD Primary Care Provider [phone] Encounter Details Date Type Department Care Team (Late st Contact Info) Description 10/15/2004 Before PRISM Converted Visit (Maple) [facility] - Maple conversion [address] [place] [address] Hilton Álvarez MD [address] [place] [phone] Social History Tobacco Use Types Packs/Day Years Used Date Smoking Tobacco: Never Assessed Sex and Gender Information Value Date Recorded Sex Assigned at Not on file Legal Sex Male 18:35 EST Gender Identity Not on file Sexual Orientation Not on file documented as of this encounter Procedure Notes * Ricki, Conv Wet And Dry Sugar Bin Operator - 02/13/2011 1256 EDT DATE: 10/12/2004 SURGEON: HILTON ÁLVAREZ MD EXHAUST AND MUFFLER FITTER: REYNA CASTELLANOS MD, ANCELMO FRIEDMAN MD, HOMAR RAINEY MD [...] he finished, we placedthe patient in the Preston three-point head concierge fixation and then registered him with the [...] suture. Then thedura is stripped with a [place] #3 and an air drill is used [...] used. The arachnoid is opened with a Yuhaaviatam blade and the sylvian fissure is split. [...] skin. The patient is removed from the Preston headholder. The pupils appear 3 mm and [...] the entire portion of the case. Dr. Castellanos assisted in the opening and initial dissection and Dr. Friedman helped with the final removal of some portions of the tumor. ESTIMATED BLOOD LOSS: 1700 cc. FLUIDS: SPECIMENS: Portion of tumor. 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 d - 10/12/2004 22:45:39 - HILTON PETERS t - 10/15/2004 10:37:52 - chelle Voice ID - [id number] Document ID - [id number] cc: HOMAR DIAZ MD, REFERRING PHYSICIAN HILTON ÁLVAREZ MD, ATTENDING PHYSICIAN This document has been electronically signed by HILTON ÁLVAREZ MD on 10/16/2004 16:06:32. documented in this encounter Plan of Treatment Upcoming Encounters Date Type Department Care Team (Late st Contact Info) Description 07/06/2024 13:40 EST Office Visit [facility] Endocrinology - [address] [address] Wilder Zaidi, DO [address] [facility] [address] [place] [address] 09/09/2024 10:20 EST Office Visit [facility] Endocr[facility] - [facility] [address] [place] [address] Day Littlejohn MD PhD [address] [facility] [address] [place] [address] documented as of this encounter Visit Diagnoses Not on filedocumented in this encounter Care Teams Spindraw Operator Relationship Specialty Start Date End Date Yan Demarco MD [address] [place] [phone] PCP - General 08/22/09 02/20/10 Corin Skinner MD [address] [place] [phone] PCP - General 10/24/08 08/21/09 Akil Serrano MD [address] [place] [address] [address] [place] [address] PCP - General 02/21/10 04/16/11 documented as of this encounter
--- OUTSIDE RECORDS SUMMARY | 2024-06-28 14:00 | XMS_ITS | Clinical Summary ---
Author Organization [facility] Address [facility] [place] [address] Care Team Providers Care Sole Splitter Name Role Phone Jimbo More Primary Care Provider + Allergies Active Allergy Reactions Criticality Noted Date [...] tablet by mouth every evening. 90 tablet 03/11/2018 Active calcium carbonate (TUMS) 200 mg [...] every morning. 30 tablet 3 03/12/2018 Active hydrocortisone (CORTEF) 10 mg Tablet Take 1 tablet by mouth Daily at Noon. 30 tablet 3 03/12/2018 Active levothyroxine (SYNTHROID) 75 mcg Tablet Take 3 tablets by mouth every morning. 90 tablet 3 03/12/2018 Active melatonin 3 mg Tablet Take 3 tablets by mouth nightly. 90 tablet 3 03/11/2018 Active methyl salicylate-menthol (BENGAY) 15-10 % Cream Apply 1 Application topically 2 times daily. 30 g 03/11/2018 Active omeprazole (PRILOSEC) 40 mg Capsule, Delayed Release(E.C.) [...] Active Problems Problem Noted Date Diagnosed Date Hyponatremia 06/14/2024 Gastroesophageal reflux disease 07/17/2018 Osteoporosis 07/17/2018 Sleep [...] fra cture 09/04/2017 Dr. Lance 09/02/2017 03/11/2018 Encounters Date Type Department Care Team Description 06/16/2024 [place] [address] Lauren Ruby MD Appointment 2024 3:10 PM EST - 2024 4:30 [place] [address] RESOURCE, ANESTHESIA-BLISS MRI WITH ANESTHESIA (WRVU *) 2024 2:56 PM [place] [address] Akin Mcneill MD 06/14/2024 9:50 AM EST Ancillary Procedure Radiology Library at [facility] [place] [id number] 06/14/2024 12:57 AM EST - 06/21/2024 3:06 PM EST Hospital Encounter Neuro Special Care Unit Level 3 [place] [address] Mariola Alfred MD Saunders, Richard K, MD Loukas, Elias E, MD Raicek, Jacqueline E, DO Amell, Fredrik B, MD Sleep disorder; Hyponatremia; Agitation Discharge Disposition: Residential Facility 06/13/2024 Ancillary Procedure Radiology Library at [facility] [place] [address] Ren Vaz MD from Last 3 Months Social History Tobacco Use Types Packs/Day Years Used Date Smoking Tobacco: Never Smokeless Tobacco: Never Alcohol Use Standard Drinks/Week Comments No 0 (1 standard drink = 0.6 oz pur e alcohol) [facility] Utilities Answer Date Recorded In the past 12 months has th e electric, gas, oil, or water [employer] threatened to shut off services in your home? No 2024 Hunger Vital Sign Answer Date Recorded Within the past 12 months, y ou worried that your food would run out before you got the money to buy more. Never true 06/15/20 24 Within the past 12 months, t he food you bought just didn't last and you didn't have money to get more. Never true 2024 PRAPARE - Transportation Answer Date Re corded In the past 12 months, has l ack of transportation kept you from medical appointments or from getting medications? No 06/06 In the past 12 months, has l ack of transportation kept you from meetings, work, or from getting things needed for daily living? No 2024 Housing Stability Vital Sign Answer Abner e Recorded In the last 12 months, was t here a time when you were not able to pay the mortgage or rent on time? No 2024 In the past 12 months, how m any times have you moved where you were living? 0 2024 At any time in the past 12 m [facility], were you homeless or living in a detention (including now)? No 2024 IPV Inpatient Questions Answer Date Recorded Prevent Contact with Others Not on file 03/2024 Feels Threatened by Someone Not on file 03/2024 Feels Unsafe at Home or Work/School unable to an swer (comment required) 06/14/2024 Physical Signs of Abuse Present Not on file 06/14/2024 Sex and Gender Information Value Date Recorded Sex Assigned at Not on file Gender Identity Not on file Sexual Orientation Not on file Last Filed Vital Signs Vital Sign Reading Time Taken Comments Blood Pressure 116/82 06/21/2024 6:00 AM EST Pulse 103 06/20/2024 10:00 PM EST Temperature 36.7 ??C (98.1 ??F) 06/20/2024 8:00 PM ES T Respiratory Rate 12 06/20/2024 10:00 PM EST Oxygen Saturation 97% 06/21/2024 6:00 AM EST Inhaled Oxygen Concentration - - Weight 98.8 kg (217 lb 13 oz) 06/14/2024 11:44 A M EST Height 178 cm (5' 10.08) 06/14/2024 1:02 AM EST Body Mass Index 31.18 06/14/2024 1:02 AM EST Plan of Treatment Upcoming Encounters Date Type Department Care Team (Late st Contact Info) Description 07/20/2024 1:30 PM EST [place] [address] [facility] [place] [address] Health Maintenance Due Date Last Done Comments HIV screen 2008 Hepatitis C Screening 2008 Hepatitis B vaccine (0-59 yrs) (1) 2009 Tetanus/Diphtheria/Pertussis Vaccines (1 - Tdap) 06/15 Covid-19 Vaccine (1 - season) 2024 Influenza (Flu) vaccine (1 o f 1 - Influenza standard series) 03/07/2024 Medical Devices Implanted Type Area Cutting Room Supervisor Device Identifier Shelf Expiration Date Model / Serial / Lot Screw,Baljinder,Stap,3 .5x80mm ([id number]) (Autoreq) - [id number] Implanted:Qty: 1 on 09/04/2017 by Amy Lance MD at [facility] IMPLANTS Left: Pelvis DO NOT USE [employer] - [id number] / / Screw,Baljinder,Stap,3 .5x34mm ([id number]) ([employer]) - [id number] Implanted:Qty: 1 on 09/04/2017 by Amy Lance MD at [facility] IMPLANTS Left: Pelvis DO NOT USE [employer] - [id number] / / Screw,Baljinder,Stap,3 .5x36mm ([id number]) ([employer]) - [id number] Implanted:Qty: 1 on 09/04/2017 by Amy Lance MD at [facility] IMPLANTS Left: Pelvis DO NOT USE [employer] - [id number] / / Screw,Baljinder,Stap,3 .5x50mm ([id number]) - [id number] Implanted:Qty: 2 on 09/04/2017 by Amy Lance MD at [facility] IMPLANTS Left: Pelvis DO NOT USE [employer] - [id number] / / Screw,Baljinder,Stap,3 .5x55mm ([id number]) - [id number] Implanted:Qty: 3 on 09/04/2017 by Amy Lance MD at [facility] IMPLANTS Left: Pelvis DO NOT USE [employer] - [id number] / / Screw,Baljinder,Stap,3 .5x60mm ([id number]) - [id number] Implanted:Qty: 1 on 09/04/2017 by Amy Lance MD at [facility] IMPLANTS Left: Pelvis DO NOT USE [employer] - [id number] / / Screw,Baljinder,Stap,3 .5x65mm ([id number]) - [id number] Implanted:Qty: 2 on 09/04/2017 by Amy Lance MD at [facility] IMPLANTS Left: Pelvis DO NOT USE [employer] - [id number] / / Suprapectineal Plate (Qls Left) Implanted:Qty: 1 on 09/04/2017 by Amy Lance MD at [facility] Left: Pelvis 07/06/2022 [id number] / / [id number] 3.5mm Cortical Screw Self Tap 45mm Implanted:Qty: 1 on 09/04/2017 by Amy Lance MD at [facility] Left: Pelvis [id number] / / Explanted Type Area Cutting Room Supervisor Device Identifier Shelf Expiration Date Model / Serial / Lot K-Wire [id number] Explanted:Qty: 1 on 09/04/2017 by Amy Lance MD at [facility] Left: Pelvis [id number] / / [id number] Procedures Procedure Name Priority Date/Time Associated Diagnosis Comments HEPATIC FUNCTION PANEL Routine 06/21/2024 12:50 AM EST CBC (WITH DIFF) STAT 06/21/2024 12:50 AM EST PHOSPHORUS STAT 06/21/2024 12:50 AM EST MAGNESIUM STAT 06/21/2024 12:50 AM EST BASIC METABOLIC PANEL STAT 06/21/2024 12:50 AM EST SCAN DOC: TELEMETRY STRIPS 06/20/2024 9:23 AM EST HEPATIC FUNCTION PANEL Routine 06/20/2024 12:53 AM EST CBC (WITH DIFF) STAT 06/20/2024 12:53 AM EST PHOSPHORUS STAT 06/20/2024 12:53 AM EST MAGNESIUM STAT 06/20/2024 12:53 AM EST BASIC METABOLIC PANEL STAT 06/20/2024 12:53 AM EST SCAN DOC: TELEMETRY STRIPS 06/19/2024 10:35 AM EST HEPATIC FUNCTION PANEL Routine 06/19/2024 4:10 AM EST CBC (WITH DIFF) STAT 06/19/2024 4:10 AM EST PHOSPHORUS STAT 06/19/2024 4:10 AM EST MAGNESIUM STAT 06/19/2024 4:10 AM EST BASIC METABOLIC PANEL STAT 06/19/2024 4:10 AM EST URINALYSIS WITH REFLEX CULTURE Routine 06/19/2024 3:22 AM EST XR CHEST ONE VIEW STAT 06/18/2024 7:5 5 PM EST BLOOD CULTURE STAT 06/18/2024 7:00 PM EST BLOOD CULTURE STAT 06/18/2024 7:00 PM EST POC, GLUCOSE Routine 06/18/2024 6:55 PM EST EKG 12-LEAD Routine 06/18/2024 1:41 PM EST Sleep disorder SODIUM Routine 06/18/2024 12:[address] HEAD WO CONTRAST (GENERIC) STAT 06/18/2024 11:18 AM EST HEPATIC FUNCTION PANEL Routine 06/18/2024 1:26 AM EST CBC (WITH DIFF) STAT 06/18/2024 1:26 AM EST PHOSPHORUS STAT 06/18/2024 1:26 AM EST MAGNESIUM STAT 06/18/2024 1:26 AM EST BASIC METABOLIC PANEL STAT 06/18/2024 1:26 AM EST EKG 12-LEAD STAT 06/18/2024 12:53 AM EST Agitation SODIUM Routine 06/17/2024 5:50 PM EST HEPATIC FUNCTION PANEL STAT Add-On 06/17/2024 11:58 AM EST SODIUM Routine 06/17/2024 11:58 AM EST SODIUM Routine 06/17/2024 6:23 AM EST SCAN DOC: TELEMETRY STRIPS 06/17/2024 4:03 AM EST CBC (WITH DIFF) STAT 06/17/2024 12:22 AM EST PHOSPHORUS STAT 06/17/2024 12:22 AM EST MAGNESIUM STAT 06/17/2024 12:22 AM EST BASIC METABOLIC PANEL STAT 06/17/2024 12:22 AM EST SODIUM Routine 06/16/2024 6:37 PM EST SCAN DOC: TELEMETRY STRIPS 06/16/2024 3:18 PM EST SODIUM STAT 06/16/2024 2:05 PM EST SODIUM Routine 06/16/2024 12:03 PM EST SODIUM Routine 06/16/2024 6:00 AM EST CBC (WITH DIFF) STAT 06/16/2024 12:09 AM EST PHOSPHORUS STAT 06/16/2024 12:09 AM EST MAGNESIUM STAT 06/16/2024 12:09 AM EST BASIC METABOLIC PANEL STAT 06/16/2024 12:09 AM EST SODIUM Routine 2024 5:58 PM EST MRI BRAIN WWO CONTRAST (GENERIC) STAT 2024 4:20 PM EST Unlisted Mri Procedure ([id number]) 2024 2:56 PM EST Please evaluate lesion seen on CT: Hypoattenuating, 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 measuring 3.1 cm with local mass effect on the RIGHT temporal lobe SODIUM Routine 2024 12:07 PM EST SODIUM Routine 2024 5:54 AM EST CBC (WITH DIFF) STAT 2024 12:06 AM EST PHOSPHORUS STAT 2024 12:06 AM EST MAGNESIUM STAT 2024 12:06 AM EST BASIC METABOLIC PANEL STAT 2024 12:06 AM EST SODIUM Routine 06/14/2024 6:49 PM EST EEG CONTINUOUS MONITORING INPATIENT Routine 06/14/2024 3:33 PM EST SODIUM Routine 06/14/2024 2:15 PM EST SODIUM Routine 06/14/2024 12:12 PM EST SODIUM Routine 06/14/2024 10:35 AM EST REQUEST FOR 2ND READ CT HEAD Routine 06/14/2024 9:46 AM EST URINALYSIS BEAKER MICROSCOPIC ([facility]/TESS) SHEEBA 06/14/2024 8:06 AM EST URINALYSIS MICROSCOPIC EXAM STAT Add-On 06/14/2024 8:06 AM EST URINALYSIS DIPSTICK STAT Add-On 06/14/2024 8 :06 AM EST _URINALYSIS WITH MICRSOCOPIC STAT Add-On 06/14/2024 8:06 AM EST SODIUM Routine 06/14/2024 8:06 AM EST ELECTROLYTES, URINE, RANDOM Routine 06/14/2024 8:06 AM EST OSMOLALITY, URINE, RANDOM Routine 06/14/2024 8:06 AM EST CBC (WITH DIFF) STAT 06/14/2024 5:27 AM EST PHOSPHORUS STAT 06/14/2024 5:27 AM EST MAGNESIUM STAT 06/14/2024 5:27 AM EST BASIC METABOLIC PANEL STAT 06/14/2024 5:27 AM EST XR CHEST ONE VIEW Routine 06/14/2024 4:0 2 AM EST SODIUM Routine 06/14/2024 3:32 AM EST BLOOD GAS VENOUS POC Routine 06/14/2024 1:35 AM EST POC, GLUCOSE Routine 06/14/2024 1:06 AM EST EKG 12-LEAD STAT 06/14/2024 1:04 AM EST Sleep disorder SCAN, PERIPHERAL BLOOD SHEEBA 06/14/2024 1:03 AM EST OSMOLALITY Routine 06/14/2024 1:03 AM EST CBC (WITH DIFF) STAT 06/14/2024 1:03 AM EST PHOSPHORUS STAT 06/14/2024 1:03 AM EST MAGNESIUM STAT 06/14/2024 1:03 AM EST BASIC METABOLIC PANEL STAT 06/14/2024 1:03 AM EST T3 TOTAL Routine 06/14/2024 1:03 AM EST T4, FREE Routine 06/14/2024 1:03 AM EST ZONISAMIDE LEVEL Routine 06/14/2024 1:03 AM EST FILM LIBRARY STORAGE ONLY CT HEAD Routine 06/13/2024 12:00 AM EST from Last 3 Months Results * (ABNORMAL) CBC (with Diff) (06/21/2024 12:[address] [facility]) Only the most recent of9 resultswithin the time period is included. White Blood Cell 7.52 4.00 - 9.50 x10(3)/mc L 06/21/2024 1:09 AM [facility] Red Blood Cell 5.33 4.58 - 5.54 x10(6)/mc L 06/21/2024 1:09 AM [facility] Hemoglobin 12.9(L) 13.7 - 16.5 g/dL 06/21/2024 1:09 AM [facility] Hematocrit 39.9(L) 40.5 - 48.5 % 06/21/2024 1:09 AM [facility] Mean Cell Volume 74.9(L) 82.9 - 93.1 fL 06/21/2024 1:09 AM [facility] Mean Cell Hemoglobin 24.2(L) 27.5 - 32.1 pg 06/21/2024 1:09 AM [facility] Mean Cell Hemoglobin Concentration 32.3 32.0 - 35.7 g/dL 06/21/2024 1:09 AM [facility] Platelet 268 145 - 357 x10(3)/mc L 06/21/2024 1:09 AM [facility] Mean Platelet Volume 9.1 7.6 - 12.9 fL 06/21/2024 1:09 AM [facility] RDW Standard Deviation 39.8 36.0 - 45.0 fL 06/21/2024 1:09 AM [facility] RDW coefficient of variation 15.0(H) 11.4 - 13.8 % 06/21/2024 1:09 AM [facility] NRBC% auto 0.0 % 06/21/2024 1:09 AM [facility] NRBC Absolute <0.01 <0.01 x10(3)/mc L 06/21/2024 1:09 AM [facility] Neutrophil % 63.6 % 06/21/2024 1:09 AM [facility] Neutrophil Absolute (ANC) - Automated 4.78 1.70 - 6.10 x10(3)/mc L 06/21/2024 1:09 AM [facility] Lymph % 23.7 % 06/21/2024 1:09 AM [facility] Lymph Absolute 1.78 0.90 - 3.20 x10(3)/mc L 06/21/2024 1:09 AM [facility] Monocyte % 9.8 % 06/21/2024 1:09 AM [facility] Monocyte Absolute 0.74 0.30 - 0.90 x10(3)/mc L 06/21/2024 1:09 AM [facility] Eos % 2.0 % 06/21/2024 1:09 AM [facility] Eos Absolute 0.15 0.00 - 0.40 x10(3)/mc L 06/21/2024 1:09 AM [facility] Basophil % 0.4 % 06/21/2024 1:09 AM [facility] Baso Absolute <0.04 0.00 - 0.10 x10(3)/mc L 06/21/2024 1:09 AM [facility] Immature Gran % 0.5 % 1:09 AM [facility] Immature Gran Absolute 0.04 0.00 - 0.04 x10(3)/mc L 06/21/2024 1:09 AM [facility] Blood VENOUS BLOOD SPECIMEN / Unknown Venipuncture / Unknown 06/21/2024 12:50 AM EST 06/21/2024 12:56 AM EST Martinez Reynolds MD HEMATOLOGY ORDERABLE S [facility] [place] [address] * Phosphorus (06/21/2024 12:50 AM EST) Only the most recent of9 resultswithin the time period is included. Phosphorus 3.2 2.5 - 4.5 mg/dL 06/21/2024 1:30 AM EST [facility] Blood VENOUS BLOOD SPECIMEN / Unknown Venipuncture / Unknown 06/21/2024 12:50 AM EST 06/21/2024 12:56 AM EST Martinez Reynolds MD CHEMISTRY ORDERABLES Performing Organization Address City/[facility]/ZIP Co de Phone Number [facility] [place] [address] * Magnesium (06/21/2024 12:50 AM EST) Only the most recent of9 resultswithin the time period is included. Magnesium 0.81 0.69 - 1.07 mMol/L 06/21/2024 1:30 AM EST [facility] Blood VENOUS BLOOD SPECIMEN / Unknown Venipuncture / Unknown 06/21/2024 12:50 AM EST 06/21/2024 12:56 AM EST Martinez Reynolds MD CHEMISTRY ORDERABLES Performing Organization Address City/[facility]/ZIP Co de Phone Number [facility] [place] [address] * (ABNORMAL) Hepatic Function Panel (06/21/2024 12:50 AM EST) Only the most recent of5 resultswithin the time period is included. Albumin 4.0 3.2 - 5.2 g/dL 06/21/2024 1:30 AM EST [facility] Aspartate Aminotransferase 47(H) <=39 unit/L 06/21/2024 1:30 AM [facility] Alanine Aminotransferase 64(H) 0 - 55 unit/L 06/21/2024 1:30 AM [facility] Alkaline Phosphatase 141(H) 40 - 130 unit/L 06/21/2024 1:30 AM [facility] Bilirubin, Total <0.2 <=1.3 mg/dL 06/21/2024 1:30 AM [facility] Bilirubin, Direct <0.2 0.0 - 0.3 mg/dL 06/21/2024 1:30 AM [facility] Protein, Total 7.1 6.1 - 8.0 g/dL 06/21/2024 1:30 AM [facility] Blood VENOUS BLOOD SPECIMEN / Unknown Venipuncture / Unknown 06/21/2024 12:50 AM EST 06/21/2024 12:56 AM EST Martinez Reynolds MD CHEMISTRY ORDERABLES [facility] [place] [address] * (ABNORMAL) Basic Metabolic Panel (06/21/2024 12:50 AM EST) Only the most recent of9 resultswithin the time period is included. Glucose 126 65 - 199 mg/dL 06/21/2024 1:44 AM [facility] Comment:Glucose Concentratio n >=200 mg/dL plus symptoms is consistent with Diabetes Mellitus. Blood Urea Nitrogen 12 10 - 20 mg/dL 06/21/2024 1:44 AM [facility] Creatinine 0.82 0.80 - 1.50 mg/dL 06/21/2024 1:44 AM [facility] Sodium 141 135 - 145 mMol/L 06/21/2024 1:44 AM [facility] Potassium 4.3 3.5 - 5.0 mMol/L 06/21/2024 1:44 AM [facility] Chloride 111(H) 98 - 107 mMol/L 06/21/2024 1:44 AM [facility] Carbon Dioxide 18(L) 22 - 31 mMol/L 06/21/2024 1:44 AM [facility] Anion Gap 12 5 - 15 mMol/L 06/21/2024 1:44 AM EST [facility] Calcium 9.0 8.5 - 10.5 mg/dL 06/21/2024 1:44 AM EST [facility] Est Glomerular Filtration Rate - Male 118 mL/min/1. 73 m?? 06/21/2024 1:44 AM EST [facility] Comment: This patient's estimated GFR was calculated using the 2020 CKD-EPI equation. The estimated GFR can vary from the measured GFR by up to 30% in the absence of rapidly changing kidney function. Assessment of the estimated GFR is not appropriate when creatinine concentrations are rapidly changing. For clinical situations in which a more precise estimate of GFR is necessary, consider alternative methods of GFR estimation such as a 24-hour urine creatinine clearance. Assignment of CKD stage 1 - 5 for patients with an eGFR near the transition point between stages may be based on clinical assessment of muscle mass and symptoms in addition to eGFR. Link: eGFR Calculator [employer] Blood VENOUS BLOOD SPECIMEN / Unknown Venipuncture / Unknown 06/21/2024 12:50 AM EST 06/21/2024 12:56 AM EST Martinez Reynolds MD CHEMISTRY ORDERABLES [facility] [place] [address] * Scan Doc: Telemetry Strips (06/20/2024 9:23 AM EST) Only the most recent of4 resultswithin the time period is included. Narrative 06/20/2024 9:23 AM EST Ordered by an unspecified provider. Scanning Provider MEDIA MGR SCAN EXT O RDR/RSLT * (ABNORMAL) Urinalysis with reflex Culture (06/19/2024 3:22 AM EST) Glucose, Urine Dipstick Negative Negative 06/19/2024 3:37 AM EST [facility] Protein, Urine Dipstick Negative Negative 06/19/2024 3:37 AM EST [facility] Bilirubin, Urine Dipstick Negative Negative 06/19/2024 3:37 AM [facility] Comment:Clinical correlation required for positive Urine Bilirubin results as false positive may occur with some drugs and drug related products. If a false positive is suspected a serum total bilirubin should be considered if clinically indicated. Urobilinogen, Urine Dipstick Normal Normal, 0.2 mg/dL, 1.0 mg/dL 06/19/2024 3:37 AM [facility] pH, Urine (dipstick) 6.5 5.0 - 8.0 06/19/2024 3:37 AM [facility] Blood, Urine Dipstick Negative Negative 06/19/2024 3:37 AM [facility] Ketone, Urine Dipstick Negative Negative 06/19/2024 3:37 AM [facility] Nitrite, Urine Dipstick Negative Negative 06/19/2024 3:37 AM [facility] Leukocytes, Urine Dipstick Negative Negative 06/19/2024 3:37 AM [facility] Specific [place] Urine Automated 1.021 1.005 - 1.030 06/19/2024 3:37 AM [facility] Appearance, Urine Dipstick Cloudy(A) Clear 06/19/2024 3:37 AM [facility] Color, Urine Dipstick Yellow Yellow, Dark Yellow 06/19/2024 3:37 AM [facility] CULTURE ADDED? 06/19/2024 3:37 AM [facility] Urine URINE SPECIMEN OBTAINED VIA STRAIGHT CATHETER / Unknown Non Blood Collection / Unknown 06/19/2024 3:22 AM EST 06/19/2024 3:31 AM EST Pamela Johnson DO URINE ORDERABLES [facility] [place] [address] * XR Chest One View (06/18/2024 7:55 PM EST) Only the most recent of2 resultswithin the time period is included. Pathologist [facility] WORKSTATION ID [id number] RAD Anatomical Region Laterality Modality Chest N/A Digital Radiogra phy Impressions 06/18/2024 8:09 PM EST FINDINGS/IMPRESSION: Submaximal lung volumes. No confluent airspace opacity, pleural effusion, or pneumothorax definitively identified. Cardiomediastinal contours without substantial change appreciated. Dilated bowel segments within the upper abdomen, partially imaged. Please note, this examination was ordered, performed, and interpreted in a STAT/emergency setting. Thank you for letting us participate in the care of this patient. ??If you are a health care provider and have any questions regarding this report, please contact the number below. ??For patients who have questions please contact the health child care sitter that requested your imaging first. ? Electronically signed by: Tobias Sotomayor MD, [facility] ([phone]), at 06/18/2024 8:09 PM Narrative 06/18/2024 8:09 PM EST EXAMINATION: XR CHEST ONE VIEW CLINICAL HISTORY: low temp, AMS, evaluate for infection (History as entered by ordering provider in the order requisition) TECHNIQUE: Limited portable semiupright rotated frontal chest COMPARISON: 06/14/2024 Procedure Note Tobias Sotomayor MD - 06/18/2024 EXAMINATION: XR CHEST ONE VIEW CLINICAL HISTORY: low temp, AMS, evaluate for infection (History as entered by ordering provider in the order requisition) TECHNIQUE: Limited portable semiupright rotated frontal chest COMPARISON: 06/14/2024 IMPRESSION FINDINGS/IMPRESSION: Submaximal lung volumes. No confluent airspace opacity, pleural effusion, or pneumothoraxdefinitively identified. Cardiomediastinal contours without substantial change appreciated. Dilated bowel segments within the upper abdomen, partially imaged. Please note, this examination was ordered, performed, and interpreted migdalia STAT/emergency setting. Thank you for letting us participate in the care of this patient. If youare a health care provider and have any questions regarding this report,please contact the number below. For patients who have questions please contactthe health child care sitter that requested your imaging first. Electronically signed by: Tobias Sotomayor MD, [facility]([phone]), at 06/18/2024 8:09 PM Pamela Gottik DO IMG DX ORDERABLES * Blood culture (06/18/2024 7:00 PM EST) Only the most recent of2 resultswithin the time period is included. Blood Culture No growth at 120 hours 06/23/2024 8:00 PM EST [facility] Blood VENOUS BLOOD SPECIMEN / Unknown Venipuncture / Unknown 06/18/2024 7:00 PM EST 06/18/2024 7:05 PM EST Pamela Johnson DO MICROBIOLOGY - BL OOD ORDERABLES Performing Organization Address City/[facility]/ZIP Co de Phone Number [facility] [place] [address] * POC, GLUCOSE (06/18/2024 6:55 PM EST) Only the most recent of2 resultswithin the time period is included. Glucometer, POC 100 65 - 199 mg/dL 06/18/2024 6:56 PM EST [facility] Comment:Supplemental ranges: <140 mg/dL before meals <180 mg/dL all other times of the day. Blood CAPILLARY BLOOD / Unknown 06/18/2024 6:55 PM EST 06/18/2024 6:56 PM EST Pamela Johnson DO POINT OF CARE TABATHA T ORDERABLES [facility] [place] [address] * EKG 12 Lead (06/18/2024 1:41 PM EST) Only the most recent of3 resultswithin the time period is included. Ventricular rate 47 BPM MUSE SYSTEM Atrial Rate 47 BPM MUSE SYSTEM P-R Interval 186 ms MUSE SYSTEM QRS Duration 114 ms MUSE SYSTEM Q-T Interval 558 ms MUSE SYSTEM QTC Calculated (Bezet) 493 ms MUSE SYSTEM Calculated P Chandler 11 degrees MUSE SYSTEM Calculated R Chandler 45 degrees MUSE SYSTEM Calculated T Chandler 45 degrees MUSE SYSTEM INTERPRETATION Sinus bradycardia with sinus arrhythmia Abnormal ECG When compared with ECG of 18-JUN-2024 00:53, (unconfirmed) Vent. rate has decreased BY ??32 BPM Nonspecific T wave abnormality no longer evident in Anterior leads Confirmed by MD SELVIN, OZZY () on 06/20/2024 2:52:15 PM MUSE SYSTEM 06/18/2024 1:41 PM EST 06/20/2024 2:52 PM EST Martinez Reynolds MD ECG ORDERABLES MUSE SYSTEM * Sodium (06/18/2024 12:22 PM EST) Only the most recent of17 resultswithin the time period is included. [facility] Sodium 135 135 - 145 mMol/L 06/18/2024 1:01 PM EST [facility] Blood VENOUS BLOOD SPECIMEN / Unknown Venipuncture / Unknown 06/18/2024 12:22 PM EST 06/18/2024 12:35 PM EST Pamela Johnson DO CHEMISTRY ORDERAB LES [facility] [place] [address] * CT Head wo Contrast (Generic) (06/18/2024 11:18 AM EST) Pathologist [facility] WORKSTATION ID [id number] RAD Anatomical Region Laterality Modality Head Computed Tomogra phy Impressions 06/18/2024 11:37 AM EST 1. ??No acute intracranial hemorrhage. 2. 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 3. 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 Thank you for letting us participate in the care of this patient. ??If you are a health care provider and have any questions regarding this report, please contact the number below. ??For patients who have questions please contact the health child care sitter that requested your imaging first. ? Electronically signed by: Jimbo Casillas MD, [facility] ([phone]), at 06/18/2024 11:37 AM Narrative 06/18/2024 11:37 AM EST EXAMINATION: CT HEAD WO CONTRAST (GENERIC) CLINICAL HISTORY: somnolent TECHNIQUE: CT head performed without intravenous contrast administration. COMPARISON: Brain MRI 06/14/2024. Head CT 06/13/2024 FINDINGS: Streak artifact from aneurysm clip positioned superior medial to right Meckel's cave, in the expected location of the right posterior communicating artery. Unchanged ex vacuo dilation of the anterior horn of the right lateral ventricle secondary to right hemisphere encephalomalacia. Unchanged dilation of the third ventricle. The fourth ventricle is normal in size. Basal cisterns are patent. Unchanged 3.6 by 2.8 cm well-circumscribed ??low-attenuation mass within the medial aspect of the right middle cranial fossa with portion the mass extending through right Meckel's cave which is expanded, concordant with enhancing mass better seen on MRI 06/14/2024. No acute intracranial hemorrhage. No extra-axial fluid collections. Unchanged encephalomalacia involving the anterior right temporal lobe and anterior right frontal lobe. Lowe matter white matter differentiation is otherwise well preserved, no evidence of acute cortical infarction. The orbits are unremarkable however the gaze is deviated laterally for both eyes. Small mucous retention cysts versus discontinuous mucosal thickening of the maxillary and sphenoid sinuses. Chronic osseous remodeling of the superior lateral right frontal bone consistent with postoperative changes. Surgical material within the right superior lateral orbital wall. Additional surgical material along the right lateral middle cranial fossa wall. The mastoid air cells are clear. No suspicious osseous lesions. No calvarial fracture. No scalp hematoma. Procedure Note Jimbo Casillas MD - 06/18/2024 EXAMINATION: CT HEAD WO CONTRAST (GENERIC) CLINICAL HISTORY: somnolent TECHNIQUE: CT head performed without intravenous contrast administration. COMPARISON: Brain MRI 06/14/2024. Head CT 06/13/2024 FINDINGS: Streak artifact from aneurysm clip positioned superior medial to rightMeckel's cave, in the expected location of the right posterior communicatingartery. Unchanged ex vacuo dilation of the anterior horn of the right lateralventricle secondary to right hemisphere encephalomalacia. Unchanged dilation of thethird ventricle. The fourth ventricle is normal in size. Basal cisterns arepatent. Unchanged 3.6 by 2.8 cm well-circumscribed low-attenuation mass withinthe medial aspect of the right middle cranial fossa with portion the massextending through right Meckel's cave which is expanded, concordant with enhancingmass better seen on MRI 06/14/2024. No acute intracranial hemorrhage. No extra-axial fluid collections. Unchanged encephalomalacia involving the anterior right temporal lobeand anterior right frontal lobe. Lowe matter white matter differentiation is otherwise well preserved, no evidence of acute cortical infarction. The orbits are unremarkable however the gaze is deviated laterally forboth eyes. Small mucous retention cysts versus discontinuous mucosal thickening ofthe maxillary and sphenoid sinuses. Chronic osseous remodeling of thesuperior lateral right frontal bone consistent with postoperative changes.Surgical material within the right superior lateral orbital wall. Additionalsurgical material along the right lateral middle cranial fossa wall. The mastoidair cells are clear. No suspicious osseous lesions. No calvarial fracture. Noscalp hematoma. IMPRESSION 1. No acute intracranial hemorrhage. 2. Unchanged right middle cranial fossa mass which projects throughMeckel's cave, better characterized on recent MRI as a probable schwannoma or lesslikely meningioma. 3. Unchanged right frontal and right anterior temporalencephalomalacia. Thank you for letting us participate in the care of this patient. If youare a health care provider and have any questions regarding this report,please contact the number below. For patients who have questions please contactthe health child care sitter that requested your imaging first. Pameladillon Gottidaniela DO IMG CT ORDERABLES * MRI Brain wwo Contrast (Generic) (2024 4:20 PM EST) [employer] WORKSTATION ID [id number] RAD Anatomical Region Laterality Modality Head Magnetic Resonan ce Impressions 2024 4:46 PM EST Homogeneously enhancing 3.5 cm mass along the cisternal right 5th cranial nerve and extending into Meckel's cave. This most likely represents a schwannoma. Differential considerations could include meningioma, though this is felt to be less likely. Thank you for letting us participate in the care of this patient. ??If you are a health care provider and have any questions regarding this report, please contact the number below. ??For patients who have questions please contact the health child care sitter that requested your imaging first. ? Electronically signed by: Raudel Heredia MD, [facility] ([phone]), at 2024 4:46 PM Narrative 2024 4:46 PM EST EXAMINATION: MRI BRAIN WWO CONTRAST (GENERIC) CLINICAL HISTORY: please evaluate lesion seen on CT: Hypoattenuating, 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 measuring 3.1 cm with local mass effect on the RIGHT temporal lobe TECHNIQUE: MRI of the brain was performed before and after the intravenous administration of 20cc Dotarem. COMPARISON: Head CT 06/13/2024, 03/21/2019, 09/02/2017 FINDINGS: A homogeneously enhancing mass extends along the course of the cisternal right 5th cranial nerve into Meckel's cave. The mass measures 3.5 x 2.7 x 2.8 cm. The mass contacts and slightly displaces the right carotid flow void, but the flow void does not appear to be narrowed. No mass or abnormal enhancement elsewhere. There are right-sided craniotomy changes of encephalomalacia involving the right frontal lobe, right anterior temporal lobe, common inferior mesial left frontal lobe, and bilateral thalami. There is artifact related to aneurysm clip with its blades near the right [employer]. Procedure Note Raudel Heredia MD - 2024 EXAMINATION: MRI BRAIN WWO CONTRAST (GENERIC) CLINICAL HISTORY: please evaluate lesion seen on CT: Hypoattenuating,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measuring 3.1 cm with local mass effect on the RIGHT temporal lobe TECHNIQUE: MRI of the brain was performed before and after the intravenousadministration of 20cc Dotarem. COMPARISON: Head CT 06/13/2024, 03/21/2019, 09/02/2017 FINDINGS: A homogeneously enhancing mass extends along the course of the cisternalright 5th cranial nerve into Meckel's cave. The mass measures 3.5 x 2.7 x 2.8cm. The mass contacts and slightly displaces the right carotid flow void, but theflow void does not appear to be narrowed. No mass or abnormal enhancementelsewhere. There are right-sided craniotomy changes of encephalomalacia involving theright frontal lobe, right anterior temporal lobe, common inferior mesial leftfrontal lobe, and bilateral thalami. 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 IMPRESSION Homogeneously enhancing 3.5 cm mass along the cisternal right 5th cranialnerve and extending into Meckel's cave. This most likely represents aschwannoma. Differential considerations could include meningioma, though this is feltto be less likely. Thank you for letting us participate in the care of this patient. If youare a health care provider and have any questions regarding this report,please contact the number below. For patients who have questions please contactthe health child care sitter that requested your imaging first. Marline Calderon APRN IMG MRI ORDERABLES * EEG Continuous Monitoring Inpatient (06/14/2024 3:33 PM EST) Narrative Camron Gee MD - 06/14/2024 3:33 PM EST Rashard Navarrete MD ? 06/14/2024 ??3:36 PM Preliminary continuous video EEG Note: 06/14/2024 - 3:33 PM Start Time: 14:49 Review of the first 45 minutes of this cEEG recording shows generalized slowing with superimposed r hemispheric slowing. No seizures seen during this time. ?? Formal report will follow in the AM. Rashard Navarrete MD 06/14/2024 Marline Calderon APRN NEUROLOGY ORDERABL ES * Request For 2nd Read CT Head (06/14/2024 9:46 AM EST) WORKSTATION ID [id number] RAD Anatomical Region Laterality Modality Head SO Impressions 06/14/2024 10:41 AM EST Hypoattenuating, 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 Recommend dedicated MRI brain with and without contrast for further characterization. Thank you for letting us participate in the care of this patient. ??If you are a health care provider and have any questions regarding this report, please contact the number below. ??For patients who have questions please contact the health child care sitter that requested your imaging first. ? Narrative 06/14/2024 10:41 AM EST EXAMINATION: REQUEST FOR 2ND READ CT HEAD CLINICAL HISTORY: New seizure with known mass, ?enlargening. Presenting with seizure; Sending Institution [facility]; Date of exam [id number]; I believe a reinterpretation of this exam may alter care of Patient. Yes TECHNIQUE: Reinterpretation of noncontrast CT head performed at [facility] 06/13/2024 at 2143 hours COMPARISON: Noncontrast CT head 03/21/2019 FINDINGS: Within the medial RIGHT cranial fossa is a 2.7 x 3.1 x 3.1 cm primarily hypoattenuating mass presumably extending from Meckel's cave with local mass effect on the anterior and medial RIGHT temporal lobe. 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 Surgical changes of the sella with surgical clips projecting anterior to the azeb. No new territorial abnormalities of lowe-white matter differentiation. No intracranial hemorrhage. Mastoid air cells are clear. Mucosal thickening of the paranasal sinuses. No acute calvarial abnormality. Procedure Note Galen Balderas MD - 06/14/2024 EXAMINATION: REQUEST FOR 2ND READ CT HEAD CLINICAL HISTORY: New seizure with known mass, ?enlargening. Presentingwith seizure; Sending Institution [facility]; Date of exam [id number]; I believe a reinterpretation of this exam may alter care of Patient. Yes TECHNIQUE: Reinterpretation of noncontrast CT head performed at [facility] 06/13/2024 at 2143 hours COMPARISON: Noncontrast CT head 03/21/2019 FINDINGS: Within the medial RIGHT cranial fossa is a 2.7 x 3.1 x 3.1 cm primarily hypoattenuating mass presumably extending from Meckel's cave with localmass effect on the anterior and medial RIGHT temporal lobe. 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 Surgical changes of thesella with surgical clips projecting anterior to the azeb. No new territorial abnormalities of lowe-white matter differentiation.No intracranial hemorrhage. Mastoid air cells are clear. Mucosal thickeningof the paranasal sinuses. No acute calvarial abnormality. IMPRESSION Hypoattenuating, likely cystic mass appears to be arising from Meckel'scave on the RIGHT measuring 3.1 cm with local mass effect on the RIGHT temporallobe. Recommend dedicated MRI brain with and without contrast for further characterization. Thank you for letting us participate in the care of this patient. If youare a health care provider and have any questions regarding this report,please contact the number below. For patients who have questions please contactthe health child care sitter that requested your imaging first. Lexie Osullivan APRN IMG OUTSIDE INTERP RETATION ORDERABLES * (ABNORMAL) Urinalysis Microscopic (06/14/2024 8:06 AM EST) Bacteria, Urine None None /HPF 12:26 PM EST [facility] Amorphous Crystals, Urine Many(A) None /HPF 06/14/2024 12:26 PM EST [facility] RBC, Urine 1 0 - 3 /HPF 06/14/2024 12:26 PM EST [facility] WBC, Urine 1 0 - 3 /HPF 06/14/2024 12:26 PM EST [facility] Squamous Epithelial Cells, Urine 0 0 - 5 /HPF 06/14/2024 12:26 PM EST [facility] Hyaline Casts, Urine 0 0 - 2 /LPF 06/14/2024 12:26 PM EST [facility] Urine URINE SPECIMEN / Unknown Non Blood Collection / Unknown 06/14/2024 8:06 AM EST 06/14/2024 8:52 AM EST Marline Calderon BALANCER URINE ORDERABLES [facility] [place] [address] * Urinalysis Microscopic Exam (06/14/2024 8:06 AM EST) Urine URINE SPECIMEN / Unknown Non Blood Collection / Unknown 06/14/2024 8:06 AM EST 06/14/2024 8:52 AM EST Marline Calderon APRN URINE ORDERABLES [facility] [place] [address] * Electrolytes, urine, random (06/14/2024 8:06 AM EST) Sodium, Urine 76 mMol/L 06/14/2024 10:44 AM EST [facility] Potassium, Urine 41 mMol/L 06/14/2024 10:44 AM EST [facility] Chloride, Urine 52 mMol/L 06/14/2024 10:44 AM EST [facility] Urine URINE SPECIMEN / Unknown Non Blood Collection / Unknown 06/14/2024 8:06 AM EST 06/14/2024 8:52 AM EST Mariola Alfred MD URINE ORDERABLES Performing Organization Address City/[facility]/ZIP Co de Phone Number [facility] [place] [address] * Osmolality, urine, random (06/14/2024 8:06 AM EST) Osmolality, Urine 496 50 - 1,200 mOsm/kg 06/14/2024 10:55 AM EST [facility] Urine URINE SPECIMEN / Unknown Non Blood Collection / Unknown 06/14/2024 8:06 AM EST 06/14/2024 8:52 AM EST Mariola Alfred MD URINE ORDERABLES [facility] [place] [address] * (ABNORMAL) Urinalysis Dipstick (06/14/2024 8:06 AM EST) Glucose, Urine Dipstick Negative Negative 06/14/2024 12:26 PM [facility] Protein, Urine Dipstick Negative Negative 06/14/2024 12:26 PM [facility] Bilirubin, Urine Dipstick Negative Negative 06/14/2024 12:26 PM [facility] Comment:Clinical correlation required for positive Urine Bilirubin results as false positive may occur with some drugs and drug related products. If a false positive is suspected a serum total bilirubin should be considered if clinically indicated. Urobilinogen, Urine Dipstick Normal Normal, 0.2 mg/dL, 1.0 mg/dL 06/14/2024 12:26 PM [facility] pH, Urine (dipstick) 7.0 5.0 - 8.0 06/14/2024 12:26 PM [facility] Blood, Urine Dipstick Negative Negative 06/14/2024 12:26 PM [facility] Ketone, Urine Dipstick Negative Negative 06/14/2024 12:26 PM [facility] Nitrite, Urine Dipstick Negative Negative 06/14/2024 12:26 PM [facility] Leukocytes, Urine Dipstick Negative Negative 06/14/2024 12:26 PM [facility] Specific [place] Urine Automated 1.016 1.005 - 1.030 06/14/2024 12:26 PM [facility] Appearance, Urine Dipstick Turbid(A) Clear 06/14/2024 12:26 PM [facility] Color, Urine Dipstick Yellow Yellow, Dark Yellow 06/14/2024 12:26 PM [facility] CULTURE ADDED? 06/14/2024 12:26 PM [facility] Urine URINE SPECIMEN / Unknown Non Blood Collection / Unknown 06/14/2024 8:06 AM EST 06/14/2024 8:52 AM EST Marline Calderon BALANCER URINE ORDERABLES [facility] [place] [address] * (ABNORMAL) Blood Gas, Venous POC (06/14/2024 1:35 AM EST) pH, Venous 7.39 7.32 - 7.42 06/14/2024 1:36 AM [facility] PCO2, Venous 37(L) 38 - 58 mmHg 06/14/2024 1:36 AM [facility] PO2, Venous 27 16 - 65 mmHg 06/14/2024 1:36 AM [facility] Bicarbonate, Venous 21.9(L) 22 - 31 mmol/L 06/14/2024 1:36 AM [facility] Base Excess, Venous -3.1(L) 1.9 - 4.5 mmol/L 06/14/2024 1:36 AM [facility] Hemoglobin, Venous 13.4(L) 13.7 - 16.5 g/dL 06/14/2024 1:36 AM [facility] Oxyhemoglobin, Venous 46.8 % 06/14/2024 1:36 AM [facility] Carboxyhemoglobin , Venous 0.7 % 06/14/2024 1:36 AM [facility] Comment: Nonsmokers: 0.5-1.5% COHB ?? Smokers: Variable ??but usually less than 10% ?? Toxic: 20-30% COHB ?? Lethal: Greater than 60% COHB Methemoglobin, Venous 0.3 <=1.5 % 06/14/2024 1:36 AM [facility] Sodium, Venous 123(L) 135 - 145 mmol/L 06/14/2024 1:36 AM [facility] Potassium, Venous 3.7 3.5 - 5.0 mmol/L 06/14/2024 1:36 AM [facility] Chloride, Venous 92(L) 98 - 107 mmol/L 06/14/2024 1:36 AM [facility] Glucose, Venous 85 65 - 199 mg/dL 06/14/2024 1:36 AM [facility] Comment:Glucose Concentratio n >=200 mg/dL plus symptoms is consistent with Diabetes Mellitus. Lactate, Venous 2.3(H) 0.5 - 2.2 mmol/L 06/14/2024 1:36 AM [facility] Ionized Calcium, Venous 1.10(L) 1.15 - 1.33 mmol/L 06/14/2024 1:36 AM [facility] Blood VENOUS BLOOD SPECIMEN / Unknown 06/14/2024 1:35 AM EST 06/14/2024 1:36 AM EST Mariola Alfred MD POINT OF CARE TEST O RDERABLES Performing Organization Address City/[facility]/ZIP Co de Phone Number [facility] [place] [address] * Scan, Peripheral Blood (06/14/2024 1:03 AM EST) RBC Morphology Abnormal 06/14/2024 2:00 AM [facility] Platelet Estimate Normal Normal 06/14/2024 2:00 AM [facility] Microcyte 1-5 /HPF 06/14/2024 2:00 AM [facility] Tear Cell 1-5 /HPF 06/14/2024 2:00 AM [facility] Blood VENOUS BLOOD SPECIMEN / Unknown Venipuncture / Unknown 06/14/2024 1:03 AM EST 06/14/2024 1:08 AM EST Mariola Alfred MD HEMATOLOGY ORDERABLE S [facility] [place] [address] * Zonisamide level (06/14/2024 1:03 AM EST) Zonisamide Lvl November 17 10 - 40 mcg/mL 06/16/2024 9:22 PM EST [facility] Comment: ADDITIONAL INFORMATION This test was developed and its performance characteristics determined by [facility] in a manner consistent with CLIA requirements. This test has not been cleared or approved by the U.S. Food and Drug Administration. Blood VENOUS BLOOD SPECIMEN / Unknown Venipuncture / Unknown 06/14/2024 1:03 AM EST 06/14/2024 1:08 AM EST Narrative [facility] 06/16/2024 9:22 PM EST Test Performed by: [place] [address] Field Services Manager: Xavier Velásquez Ph.D.; CLIA# [id number] Mariola Alfred MD LAB SEND OUT ORDERAB LES Performing Organization Address [facility] Co de Phone Number [facility] [address] * T3 Total (06/14/2024 1:03 AM EST) T3 Total 87 80 - 200 ng/dL 06/14/2024 1:46 AM EST [facility] Blood VENOUS BLOOD SPECIMEN / Unknown Venipuncture / Unknown 06/14/2024 1:03 AM EST 06/14/2024 1:08 AM EST Mariola Alfred MD CHEMISTRY ORDERABLES Performing Organization Address City/[facility]/ZIP Co de Phone Number [facility] [place] [address] * T4, free (06/14/2024 1:03 AM EST) Free T4 1.37 0.93 - 1.70 ng/dL 06/14/2024 1:46 AM EST [facility] Blood VENOUS BLOOD SPECIMEN / Unknown Venipuncture / Unknown 06/14/2024 1:03 AM EST 06/14/2024 1:08 AM EST Mariola Alfred MD CHEMISTRY ORDERABLES Performing Organization Address City/[facility]/ZIP Co de Phone Number [facility] [place] [address] * (ABNORMAL) Osmolality (06/14/2024 1:03 AM EST) Osmolality 259(L) 275 - 295 mOsm/kg 06/14/2024 1:40 AM EST [facility] Blood VENOUS BLOOD SPECIMEN / Unknown Venipuncture / Unknown 06/14/2024 1:03 AM EST 06/14/2024 1:08 AM EST Mariola Alfred MD CHEMISTRY ORDERABLES Performing Organization Address [facility] Co de Phone Number [facility] [place] [address] * Film Library- Storage Only CT Head (06/13/2024 12:00 AM EST) Narrative [facility] - 06/14/2024 12:43 AM EST This exam is auto-finalizing. It's purpose is for storage only. Ren Vaz MD IMG FILM LIBRARY ORD ERABLES Performing Organization Address City/[facility]/[place] Co de Phone Number [place], [place] from Last 3 Months Advance Directives Documents on File Type Date Recorded Patient Arch Pad Cementer Expl anation Guardianship document 06/22/2024 1:11 PM JAYME BURGOS Effective 06/21/10 Guardianship document 07/14/2018 7:22 AM SE E SCANNED DOCS * Attempt Cardiopulmonary Resuscitation - Inpatient (Latest Code Status on File) Date Activated Date Inactivated Comments 06/14/2024 12:34 AM 06/21/2024 5:12 PM Question Answer Comments Code Status decision made by: PatientLegal Guard darryl Name (and relationship if needed): Will confirm on arrival * Full Code Date Activated Date Inactivated Comments 09/03/2017 1:28 AM 03/12/2018 3:26 PM Question Answer Comments Does patient have capacity to make decision: No Code Status decision being made per: Consent of Legal Guardian Name (and relationship if needed): sister Jayme Aubrey Care Teams Sole Splitter Relationship Specialty Start Date End Date Jimbo More PA Kerry [address] DR [place] [address] PCP - General Internal Medicine 06/18/24
--- OUTSIDE RECORDS SUMMARY | 2024-06-28 14:00 | XMS_ITS | Encounter Summary ---
Author Organization [facility] Address [address] [place] [address] Care Team Providers Care Gelatin Plant Supervisor Name Role Phone Yan Demarco MD Primary Care Provider Corin Skinner MD Primary Care Provider Akil Serrano MD Primary Care Provider [phone] Encounter Details Date Type Department Care Team (Late st Contact Info) Description 10/05/2004 Results Only [facility] Pediatric Neurology - Main [place] [address] [place], [place] [address] Ade Malloy MD [address] [place] [address] [phone] Social History Tobacco Use Types Packs/Day Years [...] Office Visit [facility] Endocrinology - [facility] [address] [place] [address] Wilder Zaidi, DO [address] [place] [address] 09/09/2024 10:20 EST Office Visit [facility] Endocrinology - [facility] [address] [place] [address] Day Littlejohn MD PhD [address] [place] [address] documented as of this encounter [...] MIGUEL ANGEL MASON ? Accession #: ? [id number] : ? 1990 (Age: 14) ??M ?Collect Date: ? 10/05/2004 Location: ? B005 ? Receive Date: ? 10/05/2004 Provider: ? ADE MALLOY MD Copy to: ?TOO DIAZ MD ? CYTOLOGIC [...] cleft cyst. Clinical correlation is recommended. ??(Dr. Jimenez)/kmjavid Document reviewed and electronically signed by: ? GABRIEL JACOBS MD [facility] Report Date: ??10/09/2004 12:19 By the [...] ANISHA GARCIA 10/05/2004 10/05/2004 13: 56 EST us Ade Malloy MD PATHOLOGY ORDERABLES Final Result [facility] [address] [place] [address] documented in this encounter Visit Diagnoses Not on filedocumented in this encounter Care Teams Gelatin Plant Supervisor Relationship Specialty Start Date End Date Yan Demarco MD [address] [place] [address] PCP - General 08/22/09 02/20/10 Corin Skinner MD [address] [place] [phone] PCP - General 10/24/08 08/21/09 Akil Serrano MD [address] [place] [address] PCP - General 02/21/10 04/16/11 documented as of this encounter
--- OUTSIDE RECORDS SUMMARY | 2024-06-28 14:00 | XMS_ITS | Encounter Summary ---
Author Organization [facility] Address [address] [place] [address] Care Team Providers Care Rehabilitation Services Counselor Name Role Phone Yan Demarco MD Primary Care Provider Corin Skinner MD Primary Care Provider Akil Serrano MD Primary Care Provider [phone] Encounter Details Date Type Department Care Team (Late st Contact Info) Description 10/08/2004 Before PRISM Converted Visit (Maple) [facility] - Maple conversion [address] [place] [address] Hiltno Malloy MD [address] [place] [phone] Social History Tobacco Use Types Packs/Day Years Used Date Smoking Tobacco: Never Assessed Sex and Gender Information Value Date Recorded Sex Assigned at Not on file Legal Sex Male 18:35 EST Gender Identity Not on file Sexual Orientation Not on file documented as of this encounter Procedure Notes * Ricki, Conv Welder Setter Resistance Machine - 02/13/2011 1243 EDT DATE: 10/05/2004 SURGEON: HILTON MALLOY MD PIPE AND BOILER [employer]OVERS SUPERVISOR: JOSE ARMANDO ALEJO MD; ROSEY LITTLEJOHN MD; [...] and his head was placed in the [place] three-point headholder fixator device. At that point, [...] cyst. This was opened sharply with a [place] blade scalpel, and immediately, a large amount [...] Cyst fluid. d - 10/05/2004 13:56:00 - HILTON MALLOY MD t - 10/08/2004 07:58:16 - shmuel Voice ID - [id number] Document ID - [id number] cc: JOSE ARMANDO LITTLEJOHN MD RESIDENT CONSTANTINO BERMUDEZ MD RESIDENT TOO DIAZ MD, REFERRING PHYSICIAN HILTON MALLOY MD, ATTENDING PHYSICIAN This document has been electronically signed by HILTON MALLOY MD on 10/08/2004 10:50:11. documented in this encounter Plan of Treatment Upcoming Encounters Date Type Department Care Team (Late st Contact Info) Description 07/06/2024 13:40 EST Office Visit [facility] Endocrinology [address] [phone] Wilder Zaidi, [address] [place] [phone] 09/09/2024 10:20 EST Office Visit [facility] Endocrinology [address] [phone] Day Littlejohn MD PhD [address] [place] [phone] documented as of this encounter Visit Diagnoses Not on filedocumented in this encounter Care Teams Rehabilitation Services Counselor Relationship Specialty Start Date End Date Yan Demarco MD [address] [place] [address] PCP - General 08/22/09 02/20/10 Corin Skinner MD [address] [place] [phone] PCP - General 10/24/08 08/21/09 Akil Serrano MD [address] [place] [address] [address] [place] [address] PCP - General 02/21/10 04/16/11 documented as of this encounter
--- OUTSIDE RECORDS SUMMARY | 2024-06-28 14:00 | XMS_ITS | Encounter Summary ---
Author Organization [facility] Address [address] [place] [address] Care Team Providers Care Cloth Pattern Maker Name Role Phone Yan Demarco MD Primary Care Provider [phone] Corin Skinner MD Primary Care Provider Akil Serrano MD Primary Care Provider [phone] Encounter Details Date Type Department Care Team (Late st Contact Info) Description 11/13/2004 Before PRISM Converted Visit (Maple) [facility] - Maple conversion [address] [place] [address] Kylie Larson MD [address] [place] [address] [address] [place], [place] [address] Social History Tobacco Use Types Packs/Day Years [...] scratch his face spontaneously. He did not immigration services officer specifically to command but seemed to automatically immigration services officer my hand when I gripped his. He [...] response when trying to open his mouth. conference services manager and social work continued to work on [...] that respect. There is a neurology consult pendin as to other possibilities for lack of [...] LARSON MD t - 11/13/2004 17:06:53 - chelle Voice ID - [id number] Document ID - [id number] cc: KYLIE DIAZ MD, REFERRING PHYSICIAN This document has been electronically signed by KYLIE LARSON MD on 11/14/2004 13:52:29. documented in this encounter Plan of Treatment Upcoming Encounters Date Type Department Care Team (Late st Contact Info) Description 07/06/2024 13:40 EST Office Visit [facility] Endocrinology [address] [address] Wilder Zaidi, DO [address] [place] [phone] 09/09/2024 10:20 EST Office Visit [facility] Endocrinology [address] [phone] Day Littlejohn MD PhD [address] [place] [phone] documented as of this encounter Visit Diagnoses Not on filedocumented in this encounter Care Teams Cloth Pattern Maker Relationship Specialty Start Date End Date Yan Demarco MD [address] [place] [address] PCP - General 08/22/09 02/20/10 Corin Skinner MD [address] [place] [phone] PCP - General 10/24/08 08/21/09 Akil Serrano MD [address] [place] [address] [address] [place] [address] PCP - General 02/21/10 04/16/11 documented as of this encounter
--- OUTSIDE RECORDS SUMMARY | 2024-06-28 14:00 | XMS_ITS | Encounter Summary ---
Author Organization [facility] Address [address] [place] [address] Care Team Providers Care Environmental Remediation Consultant Name Role Phone Yan Demarco MD Primary Care Provider [phone] Corin Skinner MD Primary Care Provider Akil Serrano MD Primary Care Provider [phone] Encounter Details Date Type Department Care Team (Late st Contact Info) Description 10/08/2004 Before PRISM Converted Visit (Maple) [facility] - Maple conversion [address] [place] [address] Jose Armando Alejo MD [address] [place] [address] Social History Tobacco Use Types Packs/Day Years [...] JOSE ARMANDO ALEJO MD, ADE MALLOY MD WORKING SECOND HAND: CONSTANTINO BERMUDEZ MD PREOPERATIVE DIAGNOSIS: Craniopharyngioma cyst. [...] in preparation for removal of craniopharyngioma. Dr. Malloy then proceeded to take down the posterior wall of the sphenoid sinus. ESTIMATED BLOOD LOSS: For the transnasal, transethmoidal, transsphenoidal approach, less than 100 cc. FLUIDS: Ringer lactate. SPECIMENS: COMPLICATIONS: d - 10/06/2004 12:34:17 - JOSE ARMANDO ALEJO MD t - 10/08/2004 14:14:21 - Voice ID - [id number] Document ID - [id number] cc: ADE DIAZ MD, REFERRING PHYSICIAN JOSE ARMANDO ALEJO MD, ATTENDING PHYSICIAN This document has been electronically signed by JOSE ARMANDO ALEJO MD on 10/11/2004 15:42:12. documented in this encounter Plan of Treatment Upcoming Encounters Date Type Department Care Team (Late st Contact Info) Description 07/06/2024 13:40 EST Office Visit [facility] Endocrinology - [address] [address] Wilder Zaidi, DO [address] [place] [address] [place] [phone] 09/09/2024 10:20 EST Office Visit [facility] Endocrinology [address] [address] Day Littlejohn MD PhD [address] [place] [address] [place] [phone] documented as of this encounter Visit Diagnoses Not on filedocumented in this encounter Care Teams Environmental Remediation Consultant Relationship Specialty Start Date End Date Yan Demarco MD [address] [place] [phone] PCP - General 08/22/09 02/20/10 Corin Skinner MD [address] [place] [phone] PCP - General 10/24/08 08/21/09 Akil Serrano MD [address] [place] [address] PCP - General 02/21/10 04/16/11 documented as of this encounter
--- OUTSIDE RECORDS SUMMARY | 2024-06-28 14:00 | XMS_ITS | Encounter Summary ---
Author Organization [facility] Address [address] [place] [address] Care Team Providers Care Other Sports Coach Or Instructor Name Role Phone Unavailable Primary Care Provider Unavailabl e Encounter Details Date Type Department Care Team (Late st Contact Info) Description 09/17/2004 11:07 EST - 09/17/2004 11:59 EST Hospital Encounter [facility] - Maple conversion [address] [place] [address] Jamie Mckenna MD [address] [facility], [facility] [address] [place] [phone] Discharge Disposition: Home or Self Care Social [...] Office Visit [facility] Endocrinology [facility] [address] [place], [place] [phone] Wilder Zaidi DO [address] [facility] [address] [place] [phone] 09/09/2024 10:20 EST Office Visit [place] [address] [place] [address] Day Littlejohn MD PhD [address] [place] [address] documented as of this encounter [...] macroadenoma, although these are much less likely. /[facility] Jamie Mckenna MD [facility] MRI ORDERABLES Final Re sult * MR ORBITS/FACE/NECK W/WO CONTRAST (09/17/2004 14:45 [...] PLUS/MANAGED MCAID-NO P/A REQUIRED FOR [place] MEDICAID-[place]* us Jamie Mckenna MD IMG MRI ORDERABLES Final Re sult documented in this encounter Visit Diagnoses Not on filedocumented in this encounter
--- OUTSIDE RECORDS SUMMARY | 2024-06-28 14:01 | XMS_ITS | Encounter Summary ---
[facility] [place] [address] Care Team Providers Care Food Processing Chemist Name Role Phone Ren Vaz MD Primary Care Provider [phone] Reason for Visit * Auth/Cert (Routine) Specialty Diagnoses / Procedures Referred By Contac t Referred To Contact Diagnoses Hyponatremia hyponatremia Procedures ER Mariola Crisostomo MD [facility] [place] [address] [facility] Referral ID Status Reason Start Date Expiration Date Visits Re quested Visits Authorized [id number] 1 1 Encounter Details Date Type Department Care Team (Late st Contact Info) Description 2024 2:56 [place] [address] Akin Mcneill MD [facility] [place] [address] Anesthesia Record Procedure Summary Procedure Name Responsible Anesthesiologist Anesthesia Start Time Anesthesia Stop Time MRI WITH ANESTHESIA (WRVU *) (Brain) Akin Mcneill MD 06/15/24 1456 06/15/24 1627 Events Date Time Event Comment 2024 1428 1456 AN Verify 1456 Start 1458 An Start Data 1502 An Induction 1504 An Intubation 1505 Anesthesia Ready 1513 Procedure Start 1601 an marcela now 1610 Extubation/LMA Out 1619 an stop data 1627 Recovery or ICU Handoff Christina ent care was transferred to the destination unit staff after review of the patient's medical history, current anesthetic/surgical status and plan, according to the Provider Handoff Checklist. 1627 Stop Meds Name Total lidocaine IV 50 mg propofoL 240 mg ePHEDrine 10 mg PHENYLephrine 480 mcg ondansetron 4 mg rocuronium 30 mg neostigmine 5 mg glycopyrrolate 1 mg sodium chloride 0.9% 500 mL * Agents No agents on file. * Blood No blood administrations on file. Lines, Drains, and Airways Type Details Placement Removal PIV 06/15/24; 0245; 20 g auge; basilic vein (medial side of arm), right; Anatomical Landmarks; US Not Used; Carlos Alberto Wilson RN; distraction, tolerated well, appears comfortable; 0; 06/16/24; 220606/15/24 024 by Carlos Alberto Wilson RN 06/16/242206 by Delgado Ray RN Supraglottic Mask Ventilation: Ea ehsan (1); LMA Type: air-Q; LMA Size: 4; Inserted by: Lamin Adams CRNA; Removal Date: 06/15/24; Removal Time: 1610 06/15/24 1504 by Real Adams CRNA 06/15/24 1610 by Real Adams CRNA documented in this encounter Social History Tobacco Use Types Packs/Day Years Used Date Smoking Tobacco: Never Smokeless Tobacco: Never Alcohol Use Standard Drinks/Week Comments No 0 (1 standard drink = 0.6 oz pur e alcohol) [facility] Utilities Answer Date Recorded In the past 12 months has e [employer], gas, oil, or water [employer] threatened to shut off services in your home? No 2024 Hunger Vital Sign Answer Date Recorded Within the past 12 months, y ou worried that your food would run out before you got the money to buy more. Never true 06/15/20 Within the past 12 months, t he [...] any time in the past 12 m [facility], were you homeless or living in a half-way (including now)? 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 Patient Location: ICU Level of Consciousness: Conscious but Sleepy Pain Management: Satisfactory Analgesia PONV: None Cardiovascular Status: At Baseline and Hemodynamically Stable Respiratory Status: At Baseline Postoperative Fluid Status: Intravascular EUvolemia Possible Anesthetic Complications: NONE apparent at time of evaluation Final Primary Anesthesia Type: General (The anesthetic type performed was the same as planned.) Comments: Akin Mcneill MD * Anesthesia Preprocedure Evaluation - Akin Mcneill MD - 2024 1:45 PM EST Pre-Anesthesia Evaluation for: Miguel Angel Burgos a 34 y.o. male. 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 Past Surgical History: Procedure Laterality Date PRO OPEN CARE MANAGEMENT ASSISTANT FIX ACETABULAR FX Left 09/04/2017 @OPEN TREATMENT, ACETABULAR FX (WRVU 25.41) performed by Amy Lance MD at [facility] MAIN OR Social History Tobacco Use Smoking status: Never Smokeless tobacco: Never Substance Use Topics Alcohol use: No Social History Substance and Sexual Activity Drug Use No Allergies Allergen Reactions Lopid [Gemfibrozil] Medications: MAR and/or home medications have been reviewed. Physical Exam: Preprocedure Vitals Current as of 06/15/24 1345 BP: 100/61 Pulse: Resp: SpO2: 99 Temp: 35.5 ??C (95.9 ??F) Height: 178 cm (5' 10.08) (06/14/24) Weight: 98.8 kg (217 lb 13 oz) (06/14/24) BMI: 31.18 IBW: 73.2 kg (161 lb 5.4 oz) Last edited 06/15/24 1200 by SS Airway Assessment: Mallampati: (Unable to Assess) Cardiovascular Assessment: Rhythm: regular Rate: normal Pulmonary Assessment: unlabored breathing Dental Assessment: Misc Assessment: Patient is wearing No contact(s). IV access: Peripheral line Last Filed Perioperative Cognitive Screening None Anesthesia Plan: ASA 4 general, with a(n) intravenous induction Miguel Angel Burgos is a 34 y.o. 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 Now admitted to the ICU with seizures and hyponatremia. Prior anesthetic hx: no prior anesthesia history on file Labs were reviewed Allergies: -- Lopid [Gemfibrozil] NPO Status: Appropriate Anesthetic Plan: GA with ETT Standard ASA monitoring Adequate IV access Akin Mcneill MD PhD #[id number] Region - Other Informed Consent: Anesthetic plan and risks discussed with patient. Plan discussed with ONCOLOGY RESEARCH RN. Anesthesia Screening documented in this encounter Plan of Treatment Upcoming Encounters Date Type Department Care Team (Late st Contact Info) Description 07/20/2024 1:30 PM EST Office [place] [address] Eron Barriga MD [facility] [place] [address] documented as of this encounter Visit Diagnoses Not on filedocumented in this encounter Administered Medications Inactive Administered Medications - up to 3 most recent administrations Medication Order MAR Action Action Date Dose Rate Site ePHEDrine sulfate (5 mg/mL) multi-dose injection Intravenous, PRN, Starting on Fri06/15/24 at 1524, Until Fri06/15/24 at 1627, Anesthesia Intra-op, Routine Given 2024 3:36 PM EST 5 mg Given 2024 3:24 PM EST 5 mg glycopyrrolate (Robinul) (0.2 mg/mL) multi-dose injection Intravenous, PRN, Starting on Fri06/15/24 at 1605, Until Fri06/15/24 at 1627, Anesthesia Intra-op, Routine Given 2024 4:05 PM EST 1 mg lidocaine (pf) (Xylocaine) (20 mg/mL) 2% injection syringe Intravenous, PRN, Starting on Fri06/15/24 at 1502, Until Fri06/15/24 at 1627, Anesthesia Intra-op, Routine Given 2024 3:02 PM EST 50 mg neostigmine (Bloxiver) (1 mg/mL) injection Intravenous, PRN, Starting on Fri06/15/24 at 1605, Until Fri06/15/24 at 1627, Anesthesia Intra-op, Routine Given 2024 4:05 PM EST 5 mg ondansetron (pf) (Zofran) (2 mg/mL) injection Intravenous, PRN, Starting on Fri06/15/24 at 1459, Until Fri06/15/24 at 1627, Anesthesia Intra-op, Routine Given 2024 2:59 PM EST 4 mg PHENYLephrine in NS (PF) (JEANNETTE-SYNEPHRINE) 0.8 mg/10 mL (80 mcg/mL) multi-dose injection Syringe Intravenous, PRN, Starting on Fri06/15/24 at 1510, Until Fri06/15/24 at 1627, Anesthesia Intra-op, Routine Given 2024 3:36 PM EST 160 mcg Given 2024 3:24 PM EST 160 mcg Given 2024 3:10 PM EST 160 mcg propofoL (Diprivan) 10 mg/mL bolus injection (Anesthesia) Intravenous, PRN, Starting on Fri06/15/24 at 1502, Until Fri06/15/24 at 1627, Anesthesia Intra-op Given 2024 3:36 PM EST 40 mg Given 2024 3:02 PM EST 200 mg rocuronium (Zemuron) (10 mg/mL) multi-dose injection Intravenous, PRN, Starting on Fri06/15/24 at 1548, Until Fri06/15/24 at 1627, Anesthesia Intra-op, Routine Given 2024 3:51 PM EST 20 mg Given 2024 3:48 PM EST 10 mg sodium chloride 0.9% infusion Intravenous, CONTINUOUS PRN, Starting on Fri06/15/24 at 1456, Until Fri06/15/24 at 1627, Anesthesia Intra-op New Bag 2024 2:56 PM EST documented in this encounter Care Teams Food Processing Chemist Relationship Specialty Start Date End Date Ren Vaz MD PCP - General Family Medicine 06/02/20 06/17/24 documented as of this encounter
--- OUTSIDE RECORDS SUMMARY | 2024-06-28 14:01 | XMS_ITS | Encounter Summary ---
Author Organization [facility] [place] [address] Care Team Providers Care Interior Designer Name Role Phone Jimbo More Primary Care Provider + Reason for Visit * Auth/Cert (Routine) Specialty Diagnoses / Procedures Referred By Contac t Referred To Contact Diagnoses Hyponatremia hyponatremia Procedures ER IPI Mariola Alfred MD [facility] [place] [address] [facility] Referral ID Status Reason Start Date Expiration Date Visits Re quested Visits Authorized [id number] 1 1 Encounter Details Date Type Department Care Team (Late st Contact Info) Description 06/14/2024 12:57 AM EST - 06/21/2024 3:06 PM EST Hospital Encounter Neuro Special Care Unit Level 3 [place] [id number] Mariola Alfred MD [facility] [place] [address] [place] [address] [place] [address] [place] [address] [place] [address] Sleep disorder; Hyponatremia; Agitation Discharge Disposition: Senior Living Facility Social History Tobacco Use Types Packs/Day Years Used Date Smoking Tobacco: Never Smokeless Tobacco: Never Alcohol Use Standard Drinks/Week Comments No 0 (1 standard drink = 0.6 oz pur e alcohol) [facility] Utilities Answer Date Recorded In the past 12 months has th e electric, gas, oil, or water company threatened to shut off services in your [...] any time in the past 12 m [facility], were you homeless or living in a alf (including now)? No 2024 [facility] IPV Inpatient Questions Answer Date Recorded Prevent [...] 98.8 kg (217 lb 13 oz) 06/14/2024 1:02 AM EST Height 178 cm (5' 10.08) 06/14/2024 1:02 AM EST Body Mass Index 31.18 06/14/2024 1:02 AM EST documented in this encounter Discharge Summaries * Martinez Reynolds MD - 06/21/2024 10:00 AM EST Images from the original note were not included. Discharge Summary Admitted: 06/14/2024 12:57 AM Attending: Martinez Reynolds MD Discharge Attending: Casey Reynolds MD Instructions for Provider: Try to get him 2.5 L per day of fluid of fliud intake. He had fallen behind a little on 1-1.5L per day and Na was risking from 135 to 141. However, it might be worthwhile adjusting the intake goal based on his next Na check. Should continue check a Na level in coming week or two. Has a neurosurgery evaluaiton for 3.5 cm schwanoma vs meningioma in mid July. Not at all clear that he would be a surgical candidate though. ID: Abram Burgos is a 34 y.o. male with PMH significant for TBI, craniopharyngioma (resected 2004, c/b panhypopituitarism), Diabetes insipidus (on DDAVP at baseline), hypothyroidism, Adrenal insufficiency (hydrocortisone 20mg AM and 10mg PM), epilepsy, legally blind, who presents to the ICU on 06/14/24 with seizures. Assessment/Plan: Abram Burgos is a 34 y.o. male with PMH significant for TBI, craniopharyngioma (resected 2004, c/b panhypopituitarism), Diabetes insipidus (on DDAVP at baseline), hypothyroidism, Adrenal insufficiency (hydrocortisone 20mg AM and 10mg PM), epilepsy, legally blind, who presents to the ICU on 06/14/24 with seizures due to suspected hyponatremia. Big change in mental status since yesterday after 2 doses of Depakote and initiating long acting seroquel. Per review of his facility medications his antipsychotic/evening regimen there includes: Melatonin 10 mg qHS Quetiapine XL 200 mg qHS Quetiapine 100 mg BID Quetiapine 100 mg daily PRN Hetlioz [address] head without acute findings and 1 hour EEG without seizure activity. Unable to square the pupil findings but Neurology was able to get more of a reaction on their exam today but noted this as a possible baseline as well. Slight leukocytosis today with low temp 95.5F, will obtain Bcx, CXR and obtain urinalysis. Have been needing to straight cath him today given his encephalopathy. His LFTs haveincreased with the depakote as well likely affecting medication clearance. Have discontinued the XLseroquel and depakote and continue supportive care for now. Sodium drifting down today after robust PO intake yesterday. Was able to take DDAVP later this morning but unsure if he will be able to this evening. Can switch to nasal formulation tonight if needed(dose would be 1 spray BID). Will not start dextrose given downtrending Na. Have also linked his hydrocortisone for PO/IV dosing if needed. Per discussion with Madeleine from the shelter where he lives 06/17. She notes his baseline fluid goal was 3.5L (1.5/07/07). Perhaps this was too much fluid for him. She also describes months of behavioral issues where he can become very combative in a manner of minutes. Spoke to Guardian, sister Bettina today who notes his normal behavior in the hospital is very combative and confirms that he swings quickly from agitation to sedation at home, especially because he is blind and does not have appropriate night/day cycles. ICU course has been significant for: Hyponatremia: Presented to [facility] following witnessed tonic-clonic seizure at detention, found to have sodium of 122. On transfer to , sodium 122 and treated with 50cc 3%NaCl. Trending q2 for goal 127-128 by 20:00 on 06/14. DDAVP discussed with endocrine, plan to maintain current regimen as Abram has historically dropped his sodium rapidly with changes to DDAVP. Most likely cause for hyponatremiais nonadherence to fluid restriction; less likely medication changes. Endocrine consulted. Na became stable. No major changes to outpatient regimen. 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, hydrocortisone, DDAVP) #Hyponatremia, likely due to excess free water intake, improving #Primary central diabetes insipidus First noted on CT in September 2023. 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 MRI ordered and showed a likely Schwanoma but could be, better estimated at 3.5cm. Will need outpatient follow up for reimaging and has follow up with neurosurgery outpatient in July. Liberalize fluid restriction to 3L daily per endo BMP daily and Na checks q6h --> BID per Endo Endocrine following DDAVP 0.1 mg daily PO / 0.15 mg qHS or 1 nasal spray BID Hydrocortisone 20 mg in the AM, 10 mg before dinner, has IV option too Levothyroxine 200 mcg daily (IV dosing is usually weekly) Seizures: 2 min tonic-clonic seizure witnessed at shelter, 30 sec seziure at [facility] ED (2mg ativangiven). None since arrival to . Possibly due to hyponatremia, if seizure threshold lowered at baseline may be more sensitive to sodium shifts. Unclear whether R cranial fossa mass may be playing a role, neurology and neurosurgery consulted. Per sister has been stable on zonisamide without seziures for several years. EEG monitoring in place, zonisamide level was 14- normal range. Zonisamide 400 mg QHS, level wnl ASA 81 mg daily Atorvastatin 40 mg daily Baclofen 20 mg TID Lorazepam 2 mg q4h prn for seizure #Acute toxic metabolic encephalopathy #Acute on chronic agitation in setting of seizure and metabolic derangements Quetiapine 150 mg XL daily - STOPPED Quetiapine 100 mg BID prn (first PRN) Haldol IM 2mg BID prn (2nd PRN) Depakote 250 mg BID, monitor LFTs - STOPPED -MRI read: most likely schwannoma, DDx includes meningioma -Na 129-->131 Last value Range last 24 hrs Temp: 36.7 ??C (98.1 ??F) Temp: [35.9 ??C (96.6 ??F)-36.7 ??C (98.1 ??F)] Heart Rate: (!) 103 Heart Rate: [56-103] BP: 116/82 BP: (106-122)/(67-101) Resp: 12 Resp: [12-17] SpO2: 97 % SpO2: [97 %-100 %] BP (Arterial Line): -- No data found. BMI: Weight: 98.8 kg (217 lb 13 oz) (06/14/24 0102) BMI (Calculated): 31.18 BMI Classification: Obese Mode: , SET VARIABLES RR: TV: PEEP: FiO2: PATIENT OUTPUT RR: PIP: Pplateau: SpO2: Resp: 12 SpO2: 97 % No results for input(s): PHART, OXT3HYL, PO2ART, QZB4WLP in the last 168 hours. I/O: Date 06/21/24 0700 - 06/22/24 0659 Shift 2258-3880 0454-6639 2292-5141 24 Hour Total INTAKE P.O. 354 354 Shift Total(mL/kg) 354(3.6) 354(3.6) OUTPUT Urine(mL/kg/hr) 825 825 Shift Total(mL/kg) 825(8.4) 825(8.4) Weight (kg) 98.8 98.8 98.8 98.8 Labs: Recent Labs 06/21/24 0050 06/20/24 0053 06/19/24 0410 NA 141 137 135 K 4.3 3.7 3.8 CL 111* 102 97* CO2 18* 20* 25 BUN 12 10 19 CREATININE 0.82 0.75* 0.86 CALCIUM 9.0 9.1 9.4 MAGNESIUM 0.81 0.76 0.74 PHOS 3.2 3.7 5.0* AST 47* 65* 57* ALT 64* 80* 76* ALKPHOS 141* 128 133* BILITOT <0.2 <0.2 0.2 BILIDIR <0.2 <0.2 <0.2 Recent Labs 06/21/24 0050 06/20/24 0053 06/19/24 0410 WBC 7.52 5.59 6.86 HGB 12.9* 13.5* 13.8 HCT 39.9* 40.9 41.6 MCV 74.9* 74.4* 74.3* PLATELET 268 303 297 No results for input(s): PT, INR, PTT in the last 72 hours. Microbiology: Microbiology Results (Last 30 days) Procedure Component Value Units Date/Time Blood culture [[id number]] (Abnormal) Collected: 06/18/241899 Lab Status: Preliminary result Specimen: Blood, Venous Updated: 06/20/241947 Blood Culture Coagulase Negative Staphylococcus species Comment: detected by PCR Interpretation of the importance of skin akbar such as Coag Negative Staph, Viridans Strep, Corynebacteria and other Gram Positive orgs from a single Blood Culture set requires clinical correlation. Gram Stain Anaerobic Bottle: Gram positive cocci in clusters Comment: This is an appended report. These results have been appended to a previously preliminary verified report. Blood culture [[id number]] Collected: 06/18/241899 Lab Status: Preliminary result Specimen: Blood, Venous Updated: 06/20/241999 Blood Culture No growth at 48 hours Code Status: Attempt Cardiopulmonary Resuscitation - Inpatient Active Hospital Problems Diagnosis Hyponatremia Resolved Hospital Problems No resolved problems to display. documented in this encounter Discharge Instructions * Patient Instructions* Martinez Reynolds MD - 06/18/2024 8:52 AM EST Try to get him 2.5 L per day of fluid of fliud intake. He had fallen behind a little on 1-1.5L per day and Na was risking from 135 to 141. However, it might be worthwhile adjusting the intake goal based on his next Na check. Should continue check a Na level in coming week or two. You have a hospital follow up appointment scheduled with your primary care provider, Dr. Jimbo More- Friday June 28, 2024 11:20 Future Appointments Date Time Provider Department Center 07/20/2024 1:30 PM Eron Barriga MD [facility] [place] [id number] [place] * Attachments The following attachments cannot be sent through Care Everywhere. * Hyponatremia (American) documented in this encounter Medications at Time of Discharge Medication Sig Dispensed Refills Start Date End Date baclofen (LIORESAL) 20 mg Tablet 10/09/2021 cetirizine (ZyrTEC) 10 mg Tablet 10/09/2021 hydrOXYzine (Atarax) 25 mg Tablet 10/03/2021 montelukast (Singulair) 10 mg Tablet 08/22/2021 Magnesium Gluconate 27 mg magnesium (500 mg) Tablet 09/28/2021 mupirocin (Bactroban) 2 % Ointment 09/10/2021 pyridoxine, Vitamin B6, (Vitamin B6) 50 mg Tablet 10/22/2021 menthol/camphor (BIOFREEZE-ILEX TOP) Apply topically. ferrous gluconate 324 mg (37.5 mg iron) [...] needed for incontinence 90 each 3 03/11/2018 documented as of this encounter Progress Notes * Martinez Reynolds MD - 06/21/2024 2:33 PM EST Hospital Medicine - Attending Day of Discharge Documentation Discharge diagnosis Active Hospital Problems Diagnosis Hyponatremia Resolved Hospital Problems No resolved problems to display. Secondary Issues Active Non-Hospital Problems Diagnosis Gastroesophageal reflux disease Osteoporosis Sleep disorder Primary central diabetes insipidus Secondary hypothyroidism Seizure disorder Insomnia Blind CVA (cerebral vascular accident) Urinary incontinence I have personally seen and examined the patient and they are ready for discharge. Select the appropriate statement that describes your involvement and care and omit the other: I spent >30 minutes (Day of Discharge Code 42244) involved in the final examination of the patient, discussion of the hospital stay, instructions for continuing care to all relevant caregivers, and preparation of discharge records, prescriptions and referral forms. Plans Discharge to shelter Follow-up scheduled with PCP and neurosurge Please see the Discharge Summary for complete details of any medication changes and additional plans. * Sunitha Sanderson PT - 06/21/2024 10:20 AM EST Physical Therapy Contact Note 06/21/24 1020 Evaluation & Treatment Document Type contact Total Minutes, Physical Therapy 0 Comment, Session Not Performed Pt not appropriate for PT at this time d/t agitation. Will continue to follow and provide skilled services as appropriate/able. Sunitha Sanderson PT, DPT, NCS Pager: [phone] Physical Therapy Inpatient Rehabilitation Department * Martinez Reynolds MD - 06/20/2024 2:23 PM EST Inpatient Medicine Progress Note Hospital Day 6 days Active Hospital Problems Diagnosis Hyponatremia Resolved Hospital Problems No resolved problems to display. Patient ID: Abram Burgos is a 34 y.o. 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 Hospital course c/b acute toxic and metabolic encephalopathy. 24 Hour Events: -less agitated and also less sedated. Downgraded to med surge from step down. Subjective: awake, at times feels great Vitals: Last value Range last 24 hrs Temperature Temp: 35.9 ??C (96.6 ??F) Temp: [35.7 ??C (96.3 ??F)-37.3 ??C (99.1 ??F)] Heart Rate Heart Rate: 75 Heart Rate: [75-127] Blood Pressure BP: 114/61 BP: (114-156)/(61-89) Respiratory Rate Resp: 16 Resp: [12-26] SpO2 SpO2: 96 % SpO2: -- Ins/Outs: Intake/Output Summary (Last 24 hours) at 06/20/2024 1423 Last data filed at 06/20/2024 1321 Gross per 24 hour Intake 2230 ml Output 1950 ml Net 280 ml Patient Vitals for the past 168 hrs: Weight 06/14/24 0102 98.8 kg (217 lb 13 oz) Physical Exam: Gen: Unable to arouse HEENT: Pupils nonreactive on my exam CV: Regular Pulm: Clear Abd: Soft, NT Ext: No edema Neuro: closed mouth partially with straw to upper palate, no sucking noted and not moving extremities Labs: Recent Labs 06/20/24 0053 06/19/24 0410 06/18/24 0126 WBC 5.59 6.86 9.78* HGB 13.5* 13.8 12.4* PLATELET 303 297 262 Recent Labs 06/20/24 0053 06/19/24 0410 06/18/24 1222 06/18/24 0126 NA 137 135 135 138 K 3.7 3.8 -- 4.4 CL 102 97* -- 102 CO2 20* 25 -- 25 BUN 10 19 -- 15 CREATININE 0.75* 0.86 -- 1.05 Recent Labs 06/20/24 0053 06/19/24 0410 06/18/24 0126 CALCIUM 9.1 9.4 9.3 MAGNESIUM 0.76 0.74 0.84 PHOS 3.7 5.0* 5.7* Recent Labs 06/20/24 0053 06/19/24 0410 06/18/24 0126 AST 65* 57* 52* ALT 80* 76* 61* ALKPHOS 128 133* 118 BILITOT <0.2 0.2 0.3 BILIDIR <0.2 <0.2 <0.2 No results for input(s): TROPONINT, CK in the last 168 hours. No results for input(s): PHART, BZN7NPS, PO2ART, PDY4DEG in the last 168 hours. Microbiology: None Imaginnd Read CT Head Hypoattenuating, 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 Recommend dedicated MRI brain with and without contrast for further characterization. MRI Brain Homogeneously enhancing 3.5 cm mass along the cisternal right 5th cranial nerve and extending into Meckel's cave. This most likely represents a schwannoma. Differential considerations could include meningioma, though this is felt to be less likely. CT head 1. No acute intracranial hemorrhage. 2. Unchanged right middle cranial fossa mass which projects through Meckel's cave, better characterized on recent MRI as a probable schwannoma or less likely meningioma. 3. Unchanged right frontal and right anterior temporal encephalomalacia. Inpatient Medications: Scheduled Meds: QUEtiapine XR 50 mg Oral Daily acetylcysteine 600 mg Oral BID melatonin 10.5 mg Oral Nightly pantoprazole 40 mg Intravenous Daily hydrocortisone 20 mg Oral QAM Or hydrocortisone sodium succinate 20 mg Intravenous QAM hydrocortisone 10 mg Oral Daily before dinner polyethylene glycoL (MIRALAX) oral powder 17 g Oral BID senna-docusate 2 tablet Oral BID pyridoxine (Vitamin B6) 50 mg Oral Daily aspirin 81 mg Oral Daily atorvastatin 40 mg Oral QPM levothyroxine 200 mcg Oral Daily desmopressin 0.1 mg Oral Daily desmopressin 0.15 mg Oral Nightly heparin (porcine) 5,000 Units Subcutaneous 2 times per day traZODone 100 mg Oral Nightly prazosin 2 mg Oral Nightly baclofen 20 mg Oral TID montelukast 10 mg Oral Daily zonisamide 400 mg Oral Nightly Continuous Infusions: PRN Meds:.ondansetron OR ondansetron, haloperidol lactate, QUEtiapine, acetaminophen, polyethylene glycoL (MIRALAX) oral powder AND bisacodyL AND bisacodyL EC AND lactulose AND lactulose AND magnesium citrate AND Tap water enema Assessment/Plan: Abram Burgos is a 34 y.o. male with PMH significant for TBI, craniopharyngioma (resected 2004, c/b panhypopituitarism), Diabetes insipidus (on DDAVP at baseline), hypothyroidism, Adrenal insufficiency (hydrocortisone 20mg AM and 10mg PM), epilepsy, legally blind, who presents to the ICU on 06/14/24 with seizures due to suspected hyponatremia. Big change in mental status since yesterday after 2 doses of Depakote and initiating long acting seroquel. Per review of his facility medications his antipsychotic/evening regimen there includes: Melatonin 10 mg qHS Quetiapine XL 200 mg qHS Quetiapine 100 mg BID Quetiapine 100 mg daily PRN Hetlioz [address] head without acute findings and 1 hour EEG without seizure activity. Unable to square the pupil findings but Neurology was able to get more of a reaction on their exam today but noted this as a possible baseline as well. Slight leukocytosis today with low temp 95.5F, will obtain Bcx, CXR and obtain urinalysis. Have been needing to straight cath him today given his encephalopathy. His LFTs haveincreased with the depakote as well likely affecting medication clearance. Have discontinued the XLseroquel and depakote and continue supportive care for now. Sodium drifting down today after robust PO intake yesterday. Was able to take DDAVP later this morning but unsure if he will be able to this evening. Can switch to nasal formulation tonight if needed(dose would be 1 spray BID). Will not start dextrose given downtrending Na. Have also linked his hydrocortisone for PO/IV dosing if needed. Per discussion with Madeleine from the shelter where he lives 06/17. She notes his baseline fluid goal was 3.5L (1.5/07/07). Perhaps this was too much fluid for him. She also describes months of behavioral issues where he can become very combative in a manner of minutes. Spoke to Guardian, sister Bettina today who notes his normal behavior in the hospital is very combative and confirms that he swings quickly from agitation to sedation at home, especially because he is blind and does not have appropriate night/day cycles. 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, cortical blindness, seizure disorder Zonisamide 400 mg QHS, level wnl ASA 81 mg daily Atorvastatin 40 mg daily Baclofen 20 mg TID Lorazepam 2 mg q4h prn for seizure #Asthma Montelukast 10 mg daily #GERD Pantoprazole 40 mg daily #Acute toxic metabolic encephalopathy #Acute on chronic agitation in setting of seizure and metabolic derangements Quetiapine 150 mg XL daily - STOPPED Quetiapine 100 mg BID prn (first PRN) Haldol IM 2mg BID prn (2nd PRN) Depakote 250 mg BID, monitor LFTs - STOPPED #Home meds Melatonin 9 mg QHS Trazodone 100 mg QHS Prazosin 2 mg QHS Resume home pyridoxine 50 mg daily #Hx constipation Miralax daily Bowel regimen prn #3.5 cm Right middle cranial fossa mass, uncertain etiology schwannoma vs meningioma Outpatient neurosurgery followup # Other - DVT ppx: SQH - Diet/Fluids: Regular - Access: pIV - Code Status: FULL - Dispo: Back to shelter when Martinez Reynolds MD Hospital medicine Service: 2900 06/20/2024 * Martinez Reynolds MD - 06/19/2024 4:33 PM EST Inpatient Medicine Progress Note Hospital Day 5 days Active Hospital Problems Diagnosis Hyponatremia Resolved Hospital Problems No resolved problems to display. Patient ID: Abram Burgos is a 34 y.o. 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 Hospital course c/b acute toxic and metabolic encephalopathy. 24 Hour Events: -less agitated and less sedated. Appreciate psych input... they said it would be ok to build back to slowly build up scheduled seroquel XL if we felt like the benefits>risk of lower seizure threshold. I felt like it was given how dangerous his agitation can be. Switched IV hydrocortisone to PO, spacing out Na checks. Subjective: awake, at times feels great Vitals: Last value Range last 24 hrs Temperature Temp: 36.3 ??C (97.4 ??F) Temp: [35.1 ??C (95.2 ??F)-36.3 ??C (97.4 ??F)] Heart Rate Heart Rate: (!) 112 Heart Rate: [67-112] Blood Pressure BP: 126/76 BP: (103-126)/(66-89) Respiratory Rate Resp: 17 Resp: [9-24] SpO2 SpO2: 96 % SpO2: [96 %-100 %] Ins/Outs: Intake/Output Summary (Last 24 hours) at 06/19/2024 1634 Last data filed at 06/19/2024 1627 Gross per 24 hour Intake 1213 ml Output 1920 ml Net -707 ml Patient Vitals for the past 168 hrs: Weight 06/14/24 0102 98.8 kg (217 lb 13 oz) Physical Exam: Gen: Unable to arouse HEENT: Pupils nonreactive on my exam CV: Regular Pulm: Clear Abd: Soft, NT Ext: No edema Neuro: closed mouth partially with straw to upper palate, no sucking noted and not moving extremities Labs: Recent Labs 06/19/24 0410 06/18/24 0126 06/17/24 0022 WBC 6.86 9.78* 6.81 HGB 13.8 12.4* 12.9* PLATELET 297 262 301 Recent Labs 06/19/24 0410 06/18/24 1222 06/18/24 0126 06/17/24 0623 06/17/24 0022 NA 135 135 138 < > 140 K 3.8 -- 4.4 -- 4.1 CL 97* -- 102 -- 105 CO2 25 -- 25 -- 24 BUN 19 -- 15 -- 14 CREATININE 0.86 -- 1.05 -- 0.90 < > = values in this interval not displayed. Recent Labs 06/19/24 0410 06/18/24 0126 06/17/24 0022 CALCIUM 9.4 9.3 9.4 MAGNESIUM 0.74 0.84 0.88 PHOS 5.0* 5.7* 4.3 Recent Labs 06/19/24 0410 06/18/24 0126 06/17/24 1158 AST 57* 52* 37 ALT 76* 61* 58* ALKPHOS 133* 118 118 BILITOT 0.2 0.3 0.2 BILIDIR <0.2 <0.2 <0.2 No results for input(s): TROPONINT, CK in the last 168 hours. No results for input(s): PHART, VVP1MPW, PO2ART, BGQ2DVF in the last 168 hours. Microbiology: None Imaginnd Read CT Head Hypoattenuating, 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 Recommend dedicated MRI brain with and without contrast for further characterization. MRI Brain Homogeneously enhancing 3.5 cm mass along the cisternal right 5th cranial nerve and extending into Meckel's cave. This most likely represents a schwannoma. Differential considerations could include meningioma, though this is felt to be less likely. CT head 1. No acute intracranial hemorrhage. 2. Unchanged right middle cranial fossa mass which projects through Meckel's cave, better characterized on recent MRI as a probable schwannoma or less likely meningioma. 3. Unchanged right frontal and right anterior temporal encephalomalacia. Inpatient Medications: Scheduled Meds: QUEtiapine XR 50 mg Oral Daily acetylcysteine 600 mg Oral BID melatonin 10.5 mg Oral Nightly pantoprazole 40 mg Intravenous Daily hydrocortisone 20 mg Oral QAM Or hydrocortisone sodium succinate 20 mg Intravenous QAM hydrocortisone 10 mg Oral Daily before dinner polyethylene glycoL (MIRALAX) oral powder 17 g Oral BID senna-docusate 2 tablet Oral BID pyridoxine (Vitamin B6) 50 mg Oral Daily aspirin 81 mg Oral Daily atorvastatin 40 mg Oral QPM levothyroxine 200 mcg Oral Daily desmopressin 0.1 mg Oral Daily desmopressin 0.15 mg Oral Nightly heparin (porcine) 5,000 Units Subcutaneous 2 times per day traZODone 100 mg Oral Nightly prazosin 2 mg Oral Nightly baclofen 20 mg Oral TID montelukast 10 mg Oral Daily zonisamide 400 mg Oral Nightly Continuous Infusions: PRN Meds:.haloperidol lactate, QUEtiapine, acetaminophen, polyethylene glycoL (MIRALAX) oral powderAND bisacodyL AND bisacodyL EC AND lactulose AND lactulose AND magnesium citrate AND Tap water enema Assessment/Plan: Abram Burgos is a 34 y.o. male with PMH significant for TBI, craniopharyngioma (resected 2004, c/b panhypopituitarism), Diabetes insipidus (on DDAVP at baseline), hypothyroidism, Adrenal insufficiency (hydrocortisone 20mg AM and 10mg PM), epilepsy, legally blind, who presents to the ICU on 06/14/24 with seizures due to suspected hyponatremia. Big change in mental status since yesterday after 2 doses of Depakote and initiating long acting seroquel. Per review of his facility medications his antipsychotic/evening regimen there includes: Melatonin 10 mg qHS Quetiapine XL 200 mg qHS Quetiapine 100 mg BID Quetiapine 100 mg daily PRN Hetlioz [address] head without acute findings and 1 hour EEG without seizure activity. Unable to square the pupil findings but Neurology was able to get more of a reaction on their exam today but noted this as a possible baseline as well. Slight leukocytosis today with low temp 95.5F, will obtain Bcx, CXR and obtain urinalysis. Have been needing to straight cath him today given his encephalopathy. His LFTs haveincreased with the depakote as well likely affecting medication clearance. Have discontinued the XLseroquel and depakote and continue supportive care for now. Sodium drifting down today after robust PO intake yesterday. Was able to take DDAVP later this morning but unsure if he will be able to this evening. Can switch to nasal formulation tonight if needed(dose would be 1 spray BID). Will not start dextrose given downtrending Na. Have also linked his hydrocortisone for PO/IV dosing if needed. Per discussion with Madeleine from the shelter where he lives 06/17. She notes his baseline fluid goal was 3.5L (1.5/07/07). Perhaps this was too much fluid for him. She also describes months of behavioral issues where he can become very combative in a manner of minutes. Spoke to Guardian, sister Bettina today who notes his normal behavior in the hospital is very combative and confirms that he swings quickly from agitation to sedation at home, especially because he is blind and does not have appropriate night/day cycles. 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, cortical blindness, seizure disorder Zonisamide 400 mg QHS, level wnl ASA 81 mg daily Atorvastatin 40 mg daily Baclofen 20 mg TID Lorazepam 2 mg q4h prn for seizure #Asthma Montelukast 10 mg daily #GERD Pantoprazole 40 mg daily #Acute toxic metabolic encephalopathy #Acute on chronic agitation in setting of seizure and metabolic derangements Quetiapine 150 mg XL daily - STOPPED Quetiapine 100 mg BID prn (first PRN) Haldol IM 2mg BID prn (2nd PRN) Depakote 250 mg BID, monitor LFTs - STOPPED #Home meds Melatonin 9 mg QHS Trazodone 100 mg QHS Prazosin 2 mg QHS Resume home pyridoxine 50 mg daily #Hx constipation Miralax daily Bowel regimen prn #3.5 cm Right middle cranial fossa mass, uncertain etiology schwannoma vs meningioma Outpatient neurosurgery followup # Other - DVT ppx: SQH - Diet/Fluids: Regular - Access: pIV - Code Status: FULL - Dispo: Back to shelter when MR Martinez Reynolds MD [facility] medicine Service: [id number] 06/19/2024 * Shola Morris MD - 06/19/2024 10:15 AM EST Images from the original note were not included. Endocrinology Follow up Note Name: Abram Burgos Date: 06/19/24 Room: [address] [place] [address] Reason for Consult: panhypopituitarism HPI Abram Burgos is a 34 y.o. male with a PMH significant for TBI, craniopharyngioma s/p resected 2004, c/b panhypopituitarism with central hypothyroidism, secondary adrenal insufficiency, and diabetesinsipidus, epilepsy, legally blind and osteopenia who presents to the ICU on 06/14/24 for managementof seizure and hyponatremia. Endocrinology was consulted given his history of panhypopituitarism, DI and hyponatremia. Interim Events: - Patient had a change in status yesterday and went for CT head which was unchanged. He had received multiple sedating agents for persistent agitation and was started on depakote 250 mg BID and seroquel XL 150 mg. Additionally had received PRN seroquel and IM haldol overnight. - He was quite somnolent yesterday morning. - Hydrocortisone was changed from p.o. to IV. DDAVP was able to be given in the morning yesterday and there was a plan in place after talking with pharmacy about giving IV or intranasal DDAVP in the evening if patient was still not awake enough to take oral. Patient's mental status improved and he was able to eat yesterday evening. Review of Systems ROS negative except above Vitals BP 121/84 (BP Location (NBP): Left arm, Patient Position: Lying) Pulse 100 Temp 36.3 ??C (97.4 ??F) (Temporal) Resp 23 Ht 178 cm (5' 10.08) Wt 98.8 kg (217 lb 13 oz) SpO2 96% BMI 31.18kg/m?? Physical Exam: General appearance: pleasant male pt, appears stated age, not in distress HEENT: anicteric, EOMI, no lymphadenopathy, moist mucus membranes CVS/Pulm: non labored breathing Extremities: no peripheral edema Skin: multiple healed scabs over left upper chest, right hip flexure Current Medications: Scheduled Meds: melatonin 10.5 mg Oral Nightly pantoprazole 40 mg Intravenous Daily hydrocortisone 20 mg Oral QAM Or hydrocortisone sodium succinate 20 mg Intravenous QAM hydrocortisone 10 mg Oral Daily before dinner Or hydrocortisone sodium succinate 10 mg Intravenous Daily before dinner polyethylene glycoL (MIRALAX) oral powder 17 g Oral BID senna-docusate 2 tablet Oral BID pyridoxine (Vitamin B6) 50 mg Oral Daily aspirin 81 mg Oral Daily atorvastatin 40 mg Oral QPM levothyroxine 200 mcg Oral Daily desmopressin 0.1 mg Oral Daily desmopressin 0.15 mg Oral Nightly heparin (porcine) 5,000 Units Subcutaneous 2 times per day traZODone 100 mg Oral Nightly prazosin 2 mg Oral Nightly baclofen 20 mg Oral TID montelukast 10 mg Oral Daily zonisamide 400 mg Oral Nightly Continuous Infusions: PRN Meds:.haloperidol lactate, QUEtiapine, acetaminophen, polyethylene glycoL (MIRALAX) oral powderAND bisacodyL AND bisacodyL EC AND lactulose AND lactulose AND magnesium citrate AND Tap water enema Labs: Latest Reference Range & Units 06/17/24 06:23 06/17/24 11:58 06/17/24 17:50 06/18/24 01:26 06/18/24 12:22 06/19/24 04:10 Sodium 135 - 145 mMol/L 140 141 141 138 135 135 Assessment and plan: Abram Burgos is a 34 y.o. male with a PMH significant for TBI, craniopharyngioma s/p resected 2004, c/b panhypopituitarism with central hypothyroidism, secondary adrenal insufficiency, diabetes insipidus, epilepsy, legally blind and osteopenia who presents to the ICU on 06/14/24 for management of seizure and hyponatremia. Endocrinology was consulted given his history of panhypopituitarism, DI and hyponatremia. After speaking with patients sister and guardian, Bettina, there have been no dose adjustments of any of his hormonal replacement medications in many years. Low suspicion of him having access to additional DDAVP dosing at his shelter after speaking with Jennifer from the shelter. Possibility of him having access to additional water/fluid intake over the last few weeks. Bettina said that this is possible given there is often childcare provider turnover and not everyone is up to date on what is recommended. He is on a 3.5 L restriction per day at the shelter. Patient was continued on home dose of DDAVP and fluid restriction was initially 2 L/day which was not increased to 3 L/day. His free T4 is within normal range and thus will continue home dose of levothyroxine. Additionally, he remains hemodynamically stable and would continue his home dose of hydrocortisone at this time. Craniopharyngioma s/p resection Panhypopituitarism Diabetes Insipidus - continue levothyroxine 200 mcg daily - continue hydrocortisone 20 mg in AM, 10 mg afternoon dose (would change back to PO home dosing when able) - continue home DDAVP 100 mcg in AM, 150 mcg in PM - recommend to increase fluid restriction from 2 L daily to 3 L daily, monitor urinary output/volume intake - can decrease frequency of sodium checks to daily - will need follow up with his [employer] Estate [employer] Principal, Dr. Zaidi or Dr. Day Littlejohn at discharge Endocrinology will sign off at this time but are available for any questions or concerns during hisremaining hospital stay. Thank you for allowing us to participate in the care of this patient. Discussed with Dr. Morris. Crista Gill MD. PGY4 [facility] [place] Endocrinology I have seen the patient and reviewed Dr Gill's history and I agree with the details as written. The assessment and plan were formulated in discussion with me and I agree with them as documented. Agree with liberalizing fluid intake goal. It appears recently that an intake ~2-3L has been effective at keeping Na within the normal range. Upon discharge he can resume his usual intake of 3.5L fluid daily under close observation from his outpatient endocrine team Agree given that PO levothyroxine and hydrocortisone are optimal given he is able to safely take POat this time Shola Morris MD [employer]iler[employer] machine tender Endocrinology Section [facility] * Doris Judd MD - 06/19/2024 6:58 AM EST Psychiatric Inpatient Consultation Follow Up Note Time of Consultation: 8:10 am Reason for consultation: agitation Information Sources: Patient. Electronic Medical Record. Chief Complaint (in patient's own words): awesome Interim History: NAEO No PRNs for agitation Episode of unresponsiveness yesterday AM w fixed pupils on pupillometer- neuro suspects latter is technical device error vs medication induced. Depakote and standing seroquel held. Pt appears restless but not agitated this AM. Responds he is feeling awesome when asked. Independent Collateral: None today Review of Systems: Psychiatric: See above Physical Exam: Last value Range last 24 hrs Temperature Temp: 36.3 ??C (97.4 ??F) Temp: [35.1 ??C (95.2 ??F)-36.6 ??C (97.9 ??F)] Heart Rate Heart Rate: 100 Heart Rate: [52-100] Blood Pressure BP: 121/84 BP: (103-125)/(66-89) Respiratory Rate Resp: 23 Resp: [9-24] SpO2 SpO2: 96 % SpO2: [96 %-100 %] Mental Status Examination: Musculoskeletal System: Muscle Strength/Tone (note atrophy, abnormal movements): did not formally assess, patient was lyingin bed and moving limbs in an anxious and slightly agitated manner Gait and Station: Psychiatric: Appearance: younger than stated age and unkempt, acromegaly Behavior: unable to see interviewer and not making eye contact therefore Speech: loud, slurred, and only able to glean yes and no Language: fluent in cameroonian and with word finding difficulty Mood: awesome Affect: anxious Thought Process: unable to assess Associations: unable to assess Thought Content: unable to assess Perception: not observed responding to internal stimuli no depersonalization no derealization unable to full assess Orientation: person Attention/Concentration: difficulty paying attention noted Cognition: grossly impaired by interview Memory: memory impairment noted: patient unable to communicate memory Fund of Knowledge: below what would be expected for age, gross disability noted Insight: unable to assess Judgment: unable to assess Pertinent Diagnostic Testing (include your own review/interpretation of results): Last wbc, hgb, hct plt Recent Labs 06/19/24 0410 WBC 6.86 HGB 13.8 HCT 41.6 Last 3 wbc, hgb, hct plt Recent Labs 06/19/24 0410 06/18/24 0126 06/17/24 0022 WBC 6.86 9.78* 6.81 HGB 13.8 12.4* 12.9* HCT 41.6 37.2* 37.9* PLATELET 297 262 301 Last 3 Lytes Recent Labs 06/19/24 0410 06/18/24 1222 06/18/24 0126 06/17/24 0623 06/17/24 0022 NA 135 135 138 < > 140 K 3.8 -- 4.4 -- 4.1 CL 97* -- 102 -- 105 CO2 25 -- 25 -- 24 BUN 19 -- 15 -- 14 CREATININE 0.86 -- 1.05 -- 0.90 < > = values in this interval not displayed. Last 3 LFTs Recent Labs 06/19/24 0410 06/18/24 0126 06/17/24 1158 AST 57* 52* 37 ALT 76* 61* 58* ALKPHOS 133* 118 118 BILITOT 0.2 0.3 0.2 BILIDIR <0.2 <0.2 <0.2 External Record Review (include your own review of external notes from any unique sources): Assessment: Abram Burgos is a 34 y.o. male with hx of TBI, craniopharyngioma (resected 2004, c/b panhypopituitarism), Diabetes insipidus (on DDAVP at baseline), hypothyroidism, Adrenal insufficiency (hydrocortisone 20mg AM and 10mg PM), epilepsy, legally blind, who presents to the ICU on 06/14/24 with seizures. At this juncture abram presents with a complex neurological picture, with known long standing seizures, TBI, and a new finding as of September 2023 of a large hypoattenuating mass in the right cranial fossa. During hospital admission he has struggled with behavioral agitation, consisting of pulling out Ivsand yelling and has been placed in restraints at one instance and given IM haldol. The origin of this agitation is most likely multifactorial and complex. At baseline, Abram has suffered multiple insults to his brain, including TBI and has stable encephalomalacia. There may be a degree of frontal disinhibition that is part of his presentation, and which may result in greater agitation expression due to this fact. Additionally, he has known seizure disorder, and although he has not had known seizures while here in the hospital since admission, he has had recent seizures in thecommunity, which may lead to a possible hypoactive delirium in the following days. And finally, there is also likely an important component of his agitation that is in regards to how difficult it is for him to be here in the hospital, with the overstimulation of loud sounds in the setting of his blindness, as well as a juxtaposing and opposite idea of being under stimulated and bored, and unable to access the things he enjoys or that give him purpose. It seems that this struggle is also a nascar driver of agitation, and one of the aspects that makes it hard for him to be here in the hospital. Meeting his physical comfort needs such as pain physical discomfort such as itching will also be important. 06/18/2024-Abram has been agitated overnight and has been un directable at times. Per collateral from his shelter, this is a baseline that has been going on for many months. On learning of his shelter regimen, not reflected in surescripts, we will recommend to restart home medications. Additionally, given the jump in his LFTs today, we will discontinue the depakote 250 mg BID started yesterday. 06/19/2024 - Unresponsive episode with fixed pupils yesterday AM and seroquel/trazodone also held. Neuro has seen and signed off. When safe, could consider restarting seroquel. Also, could consider NAC for agitation/skin picking behavior. IF severe agitation, would use 2mg NOT 5mg IV/IM, as outlined below. Diagnoses (chronic, acute, include progression/severity): Agitation in the setting of medical illness Plan/Recommendations: - restart quetiapine at 50 mg XR daily when safe -quetiapine 100 mg daily prn BID -Haldol 2 mg q8 prn IM for extreme agitation -continue prazosin 2 mg nightly\ -hetlioz 20 mg qHS -melatonin 10.5 mg nightly - Consider NAC for skin picking and agitation - start 600mg BID, titrate to MDD 5348-1423 in divided doses - monitor for increased respiratory secretions -discontinue depakote Patient on IEA Status? IEA: NO, patient is not an on IEA. Awaiting voluntary psychiatric placement but safety concerns exist if patient decides to leave and will require urgent psychiatric assessmentprior to discharge or leaving AMA. Recommendations were communicated to primary team truck driver Dr. Johnson. H Samson Judd MD 06/19/2024 Coding Determination 1. Problems/Diagnosis (check one): Moderate Minimal refers to a single minor problem. Example: Poor sleep due to noise in the hospital room. Low refers to two minor problems, or one stable/uncomplicated illness. Examples: Major depression in remission; adjustment disorder with depressed mood. Moderate refers to one illness with new onset, progression, exacerbation, complication, or side effects; or two stable problems. Examples: Recurrent major depression with exacerbation or progression or side effects of treatment; stable schizophrenia and alcohol use disorder; acute alcohol withdrawal; anorexia with systemic symptoms such as bradycardia. High refers to one chronic problem with severe progression, exacerbation, or side effects; or one problem with threat to life or bodily function. Examples: any psychiatric illness with suicidal or homicidal ideation or thoughts of self- harm; delirium; any eating disorder with severe medical consequences; major depression with significant functional decline; any severe side effects of psychiatric interventions (NMS, hyponatremia, lithium toxicity syndrome, etc); any psychiatric illness meeting the severe specifier. 2. Data Review/Analysis (check one): Moderate Low refers to (1) review of notes and test results or (2) assessment from a collateral source. Moderate requires one of the following: All three of the following: review of notes, review of test results, assessment from a collateral source. Discussion of test interpretation or management with an external physician/provider (primary team included). High requires both of the following (same options from Moderate above): All three of the following: review of notes, review of test results, assessment from a collateral source. Discussion of test interpretation or management with an external physician/provider (primary team included). 3. Patient Risk (check one): Moderate Minimal refers to minimal risk from additional testing/treatment. Example: Bereavement. No medications recommended. Low refers to low risk from additional testing/treatment. Example: only interventions are minimallyinvasive or otherwise low risk (serum labs, melatonin, continuing an SSRI). Moderate refers to moderate risk from additional testing/treatment. Examples: starting prescriptionmedication with only moderate risk. Moderate also includes diagnosis or treatment significantly limited by social determinants of health such as food/housing insecurity, transportation issues, financial limitations, etc. High refers to high risk from additional testing/treatment. Examples: therapies requiring monitoring of serum level (lithium, valproate), medications with specific identified risks (QTc-prolonging medications in certain patients, SSRIs in patients with risk of bleeding). Discussions of higher levels of psychiatric intervention/care (1:1 sitter, voluntary psychiatric hospitalization, IEA, ECT). Patients who may require medical interventions against their wishes when they lack capacity to refuse those interventions; patients who lack capacity to choose to leave the hospital AMA. Discussion of high risk interventions that may be necessary to ensure safety (parenteral medications for managementof agitation; restraints; security presence). Risk of acute withdrawal. Complexity of MDM Determination: Choose the appropriate level in the first 3 columns based upon what you indicated above. Then 2 outof 3 elements must be met to qualify for the highest appropriate level of complexity. Problems/Diagnosis Data Review/Analysis Patient Risk Complexity of Medical Decision-Making CPT CODE [] Minimal/Low [] Low [] Minimal/Low [] Low 77314 [] Moderate [] Moderate [] Moderate [] Moderate 03470 [] High [] High [] High [] High [id number] Final Coding Determination: Moderate * Pamela Johnson DO - 06/18/2024 5:51 PM EST Inpatient Medicine Progress Note Hospital Day 4 days Active Hospital Problems Diagnosis Hyponatremia Resolved Hospital Problems No resolved problems to display. Patient ID: Abram Burgos is a 34 y.o. 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 Hospital course c/b acute toxic and metabolic encephalopathy. 24 Hour Events: -Intake 2.8L yesterday, Na 140 > 141 > 138 > 135 -Very agitated yesterday and started depakote 250 mg BID (got 2 doses close together) and seroquel XL 150 mg (home dose 200 mg qHS) -Agitated overnight despite PRN seroquel and IM haldol, ultimately settled and then very somnolent this morning -Able to take ~500 cc PO but then very somnolent with absent pupillary reflex -STAT CT head without acute findings -1 hour EEG without seizure activity, final read pending -No O2 requirement Subjective: Somnolent Vitals: Last value Range last 24 hrs Temperature Temp: 35.3 ??C (95.5 ??F) Temp: [35.3 ??C (95.5 ??F)-36.6 ??C (97.9 ??F)] Heart Rate Heart Rate: 55 Heart Rate: [52-55] Blood Pressure BP: 111/77 BP: (109-129)/(74-94) Respiratory Rate Resp: 15 Resp: [14-18] SpO2 SpO2: 98 % SpO2: [97 %-100 %] Ins/Outs: Intake/Output Summary (Last 24 hours) at 06/18/2024 1751 Last data filed at 06/18/2024 1709 Gross per 24 hour Intake 3244.6 ml Output 300 ml Net 2944.6 ml Patient Vitals for the past 168 hrs: Weight 06/14/24 0102 98.8 kg (217 lb 13 oz) Physical Exam: Gen: Unable to arouse HEENT: Pupils nonreactive on my exam CV: Regular Pulm: Clear Abd: Soft, NT Ext: No edema Neuro: closed mouth partially with straw to upper palate, no sucking noted and not moving extremities Labs: Recent Labs 06/18/24 0126 06/17/24 0022 06/16/24 0009 WBC 9.78* 6.81 7.71 HGB 12.4* 12.9* 11.7* PLATELET 262 301 241 Recent Labs 06/18/24 1222 06/18/24 0126 06/17/24 1750 06/17/24 0623 06/17/24 0022 06/16/24 0600 06/16/24 0009 NA 135 138 141 < > 140 < > 131* K -- 4.4 -- -- 4.1 -- 3.9 CL -- 102 -- -- 105 -- 99 CO2 -- 25 -- -- 24 -- 22 BUN -- 15 -- -- 14 -- 12 CREATININE -- 1.05 -- -- 0.90 -- 0.92 < > = values in this interval not displayed. Recent Labs 06/18/24 0126 06/17/24 0022 06/16/24 0009 CALCIUM 9.3 9.4 8.3* MAGNESIUM 0.84 0.88 0.85 PHOS 5.7* 4.3 3.2 Recent Labs 06/18/24 0126 06/17/24 1158 AST 52* 37 ALT 61* 58* ALKPHOS 118 118 BILITOT 0.3 0.2 BILIDIR <0.2 <0.2 No results for input(s): TROPONINT, CK in the last 168 hours. No results for input(s): PHART, [id number], PO2ART, HES0GDY in the last 168 hours. Microbiology: None Imaginnd Read CT Head Hypoattenuating, 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 Recommend dedicated MRI brain with and without contrast for further characterization. MRI Brain Homogeneously enhancing 3.5 cm mass along the cisternal right 5th cranial nerve and extending into Meckel's cave. This most likely represents a schwannoma. Differential considerations could include meningioma, though this is felt to be less likely. CT head 1. No acute intracranial hemorrhage. 2. Unchanged right middle cranial fossa mass which projects through Meckel's cave, better characterized on recent MRI as a probable schwannoma or less likely meningioma. 3. Unchanged right frontal and right anterior temporal encephalomalacia. Inpatient Medications: Scheduled Meds: melatonin 10.5 mg Oral Nightly pantoprazole 40 mg Intravenous Daily hydrocortisone 20 mg Oral QAM Or hydrocortisone sodium succinate 20 mg Intravenous QAM hydrocortisone 10 mg Oral Daily before dinner Or hydrocortisone sodium succinate 10 mg Intravenous Daily before dinner QUEtiapine XR 150 mg Oral Nightly polyethylene glycoL (MIRALAX) oral powder 17 g Oral BID senna-docusate 2 tablet Oral BID pyridoxine (Vitamin B6) 50 mg Oral Daily aspirin 81 mg Oral Daily atorvastatin 40 mg Oral QPM levothyroxine 200 mcg Oral Daily desmopressin 0.1 mg Oral Daily desmopressin 0.15 mg Oral Nightly heparin (porcine) 5,000 Units Subcutaneous 2 times per day traZODone 100 mg Oral Nightly prazosin 2 mg Oral Nightly baclofen 20 mg Oral TID montelukast 10 mg Oral Daily zonisamide 400 mg Oral Nightly Continuous Infusions: PRN Meds:.haloperidol lactate, QUEtiapine, acetaminophen, polyethylene glycoL (MIRALAX) oral powderAND bisacodyL AND bisacodyL EC AND lactulose AND lactulose AND magnesium citrate AND Tap water enema Assessment/Plan: Abram Burgos is a 34 y.o. male with PMH significant for TBI, craniopharyngioma (resected 2004, c/b panhypopituitarism), Diabetes insipidus (on DDAVP at baseline), hypothyroidism, Adrenal insufficiency (hydrocortisone 20mg AM and 10mg PM), epilepsy, legally blind, who presents to the ICU on 06/14/24 with seizures due to suspected hyponatremia. Big change in mental status since yesterday after 2 doses of Depakote and initiating long acting seroquel. Per review of his facility medications his antipsychotic/evening regimen there includes: Melatonin 10 mg qHS Quetiapine XL 200 mg qHS Quetiapine 100 mg BID Quetiapine 100 mg daily PRN Hetlioz [address] head without acute findings and 1 hour EEG without seizure activity. Unable to square the pupil findings but Neurology was able to get more of a reaction on their exam today but noted this as a possible baseline as well. Slight leukocytosis today with low temp 95.5F, will obtain Bcx, CXR and obtain urinalysis. Have been needing to straight cath him today given his encephalopathy. His LFTs haveincreased with the depakote as well likely affecting medication clearance. Have discontinued the XLseroquel and depakote and continue supportive care for now. Sodium drifting down today after robust PO intake yesterday. Was able to take DDAVP later this morning but unsure if he will be able to this evening. Can switch to nasal formulation tonight if needed(dose would be 1 spray BID). Will not start dextrose given downtrending Na. Have also linked his hydrocortisone for PO/IV dosing if needed. Per discussion with Madeleine from the shelter where he lives 06/17. She notes his baseline fluid goal was 3.5L (1.5/07/07). Perhaps this was too much fluid for him. She also describes months of behavioral issues where he can become very combative in a manner of minutes. Spoke to Guardian, sister Bettina today who notes his normal behavior in the hospital is very combative and confirms that he swings quickly from agitation to sedation at home, especially because he is blind and does not have appropriate night/day cycles. 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, cortical blindness, seizure disorder Zonisamide 400 mg QHS, level wnl ASA 81 mg daily Atorvastatin 40 mg daily Baclofen 20 mg TID Lorazepam 2 mg q4h prn for seizure #Asthma Montelukast 10 mg daily #GERD Pantoprazole 40 mg daily #Acute toxic metabolic encephalopathy #Acute on chronic agitation in setting of seizure and metabolic derangements Quetiapine 150 mg XL daily - STOPPED Quetiapine 100 mg BID prn (first PRN) Haldol IM 2mg BID prn (2nd PRN) Depakote 250 mg BID, monitor LFTs - STOPPED #Home meds Melatonin 9 mg QHS Trazodone 100 mg QHS Prazosin 2 mg QHS Resume home pyridoxine 50 mg daily #Hx constipation Miralax daily Bowel regimen prn #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 She explains that he normally take his medications around 7 am, and she is concerned if he did not get his medicines until 11 am today. 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 She explains that around this time they lost their mother, and that she was his rock and his person, making the complications after the surgery even harder. Bettina shares that abram understands everything and has excellent hearing and does well communicating with yes and no questions. She also shares that he has an excellent memory for things that have happened in the past, and that his short term memory is harder for him. She explains that his mood is often low and that he feels anger towards to he world given what has happened and struggles with self hate. Bettina explains that the two of them are very close and that phone calls with herself and her son bring Abram viet. Bettina would greatly appreciate calls and updates at: [phone] * Ximena Turner RN - 06/18/2024 1:42 PM EST Office of Case Management: CM updated in IDR rounds that patient is not medically ready but will return to shelter when MR. [facility] [address] [place] [address] [place] [address] Spoke with Jennifer Woods RN. Updated not anticipated discharge until next week. Will submit referralto [facility] to update facility with clinicals. [facility] provides transport. * Sunitha Sanderson PT - 06/18/2024 10:49 AM EST Physical Therapy Contact Note 06/18/24 8989 Evaluation & Treatment Document Type contact Total Minutes, Physical Therapy 0 Comment, Session Not Performed Checked in with nursing, pt awaiting stat HCT for somnolence. PT will defer and follow up as appropriate/able. Sunitha Sanderson PT, DPT, NCS Pager: [phone] Physical Therapy Inpatient Rehabilitation Department * Zoë Braden RN - 06/18/2024 9:01 AM EST During VAS Purposeful Rounding, an assessment of your patient's venous access was performed fby theVascular Access Service. The following tasks were performed if needed and communicated to the bedside RN Choose all that apply: [] PIV(s) checked for patency if daily need for flush needs to be performed [] CVAD was checked for patency if daily flush needs to be performed [] IV tubing clamped or capped if needed [] Visual inspection of your patient's central line dressing integrity [x] Review of indications for vascular access [] A photo was taken of your patient's central line [x] Visual inspection of your patient's IV dressing integrity [] Other While rounding an intervention was needed and communicated to the bedside RN Choose all that apply: [] Nonocclusive IV dressing addressed [] Nonocclusive CVAD dressing (please identify type of line) [] Infusion site leaking [] IV not patent and removed [] IV not indicated [] IV placed [] IV restarted [] Implanted Port, PICC or ML dressing changed if needed (either PRN or weekly) [] Other * Jaja Chin MD - 06/18/2024 8:30 AM EST Psychiatric Inpatient Consultation Follow Up Note Time of Consultation: 8:10 am Reason for consultation: agitation Information Sources: Patient. Electronic Medical Record. Chief Complaint (in patient's own words): no Interim History: Abram was intermittently agitated overnight. He received haldol 5 mg IM at 23:41 and Seroquel 100 mg at 22:55. His medications from his shelter were shared by their staff, with his home medicationregimen being 200 XL seroquel nightly and 100 mg BID with 100 mg PRN daily and hetlioz 20 mg qHS and melatonin nightly. Per Dr. Benítez in conversation with Madeleine from his shelter, Abram goes from 0-100 very quickly and will throw things and become agitated in his home setting, and that this has been going on for many months now. On interview this morning: Abram is lying in bed under the covers having his vitals checked. He denies pain, thoughts of hurting himself,f and denies needing anything at this time. His CV/CVN CV TSC SYSTEM OPERATOR at bedside shares that he has been intermittently waking up and falling asleep and has been moaning and expressing that he is hungry thismorning. Of note, his LFTs from this morning are elevated from yesterday, at 61 and 52, up from yesterday of58 and 37. Independent Collateral: Review of Systems: Psychiatric: See above Physical Exam: Last value Range last 24 hrs Temperature Temp: 35.8 ??C (96.4 ??F) Temp: [35.8 ??C (96.4 ??F)-36.4 ??C (97.5 ??F)] Heart Rate Heart Rate: 65 Heart Rate: -- Blood Pressure BP: 117/88 BP: (116-129)/(84-94) Respiratory Rate Resp: 18 Resp: [18] SpO2 SpO2: 100 % SpO2: [100 %] Mental Status Examination: Musculoskeletal System: Muscle Strength/Tone (note atrophy, abnormal movements): did not formally assess, patient was lyingin bed and moving limbs in an anxious and slightly agitated manner Gait and Station: Psychiatric: Appearance: younger than stated age and unkempt Behavior: unable to see interviewer and not making eye contact therefore Speech: loud, slurred, and only able to glean yes and no Language: fluent in cameroonian and with word finding difficulty Mood: no Affect: anxious Thought Process: unable to assess Associations: unable to assess Thought Content: unable to assess Perception: not observed responding to internal stimuli no depersonalization no derealization unable to full assess Orientation: person Attention/Concentration: difficulty paying attention noted Cognition: grossly impaired by interview Memory: memory impairment noted: patient unable to communicate memory Fund of Knowledge: below what would be expected for age, gross disability noted Insight: unable to assess Judgment: unable to assess Pertinent Diagnostic Testing (include your own review/interpretation of results): Last wbc, hgb, hct plt Recent Labs 06/18/24 0126 WBC 9.78* HGB 12.4* HCT 37.2* Last 3 wbc, hgb, hct plt Recent Labs 06/18/24 0126 06/17/24 0022 06/16/24 0009 WBC 9.78* 6.81 7.71 HGB 12.4* 12.9* 11.7* HCT 37.2* 37.9* 33.8* PLATELET 262 301 241 Last 3 Lytes Recent Labs 06/18/24 0126 06/17/24 1750 06/17/24 1158 06/17/24 0623 06/17/24 0022 06/16/24 0600 06/16/24 0009 NA 138 141 141 < > 140 < > 131* K 4.4 -- -- -- 4.1 -- 3.9 CL 102 -- -- -- 105 -- 99 CO2 25 -- -- -- 24 -- 22 BUN 15 -- -- -- 14 -- 12 CREATININE 1.05 -- -- -- 0.90 -- 0.92 < > = values in this interval not displayed. Last 3 LFTs Recent Labs 06/18/24 0126 06/17/24 1158 AST 52* 37 ALT 61* 58* ALKPHOS 118 118 BILITOT 0.3 0.2 BILIDIR <0.2 <0.2 External Record Review (include your own review of external notes from any unique sources): Assessment: Abram Burgos is a 34 y.o. male with hx of TBI, craniopharyngioma (resected 2004, c/b panhypopituitarism), Diabetes insipidus (on DDAVP at baseline), hypothyroidism, Adrenal insufficiency (hydrocortisone 20mg AM and 10mg PM), epilepsy, legally blind, who presents to the ICU on 06/14/24 with seizures. At this juncture abram presents with a complex neurological picture, with known long standing seizures, TBI, and a new finding as of September 2023 of a large hypoattenuating mass in the right cranial fossa. During hospital admission he has struggled with behavioral agitation, consisting of pulling out Ivsand yelling and has been placed in restraints at one instance and given IM haldol. The origin of this agitation is most likely multifactorial and complex. At baseline, Abram has suffered multiple insults to his brain, including TBI and has stable encephalomalacia. There may be a degree of frontal disinhibition that is part of his presentation, and which may result in greater agitation expression due to this fact. Additionally, he has known seizure disorder, and although he has not had known seizures while here in the hospital since admission, he has had recent seizures in thecommunity, which may lead to a possible hypoactive delirium in the following days. And finally, there is also likely an important component of his agitation that is in regards to how difficult it is for him to be here in the hospital, with the overstimulation of loud sounds in the setting of his blindness, as well as a juxtaposing and opposite idea of being under stimulated and bored, and unable to access the things he enjoys or that give him purpose. It seems that this struggle is also a nascar driver of agitation, and one of the aspects that makes it hard for him to be here in the hospital. Meeting his physical comfort needs such as pain physical discomfort such as itching will also be important. 06/18/2024-Abram has been agitated overnight and has been un directable at times. Per collateral from his shelter, this is a baseline that has been going on for many months. On learning of his shelter regimen, not reflected in surescripts, we will recommend to restart home medications. Additionally, given the jump in his LFTs today, we will discontinue the depakote 250 mg BID started yesterday. Diagnoses (chronic, acute, include progression/severity): Agitation in the setting of medical illness Plan/Recommendations: -quetiapine 150 mg XR daily -quetiapine 100 mg daily prn BID -Haldol 2 mg q8 prn IM for extreme agitation -continue prazosin 2 mg nightly -hetlioz 20 mg qHS -melatonin 10.5 mg nightly -discontinue depakote Patient on IEA Status? IEA: NO, patient is not an on IEA. Awaiting voluntary psychiatric placement but safety concerns exist if patient decides to leave and will require urgent psychiatric assessmentprior to discharge or leaving AMA. Recommendations were communicated to primary team truck driver Dr. Johnson. Jaja Chin MD 06/18/2024 Coding Determination 1. Problems/Diagnosis (check one): Moderate Minimal refers to a single minor problem. Example: Poor sleep due to noise in the hospital room. Low refers to two minor problems, or one stable/uncomplicated illness. Examples: Major depression in remission; adjustment disorder with depressed mood. Moderate refers to one illness with new onset, progression, exacerbation, complication, or side effects; or two stable problems. Examples: Recurrent major depression with exacerbation or progression or side effects of treatment; stable schizophrenia and alcohol use disorder; acute alcohol withdrawal; anorexia with systemic symptoms such as bradycardia. High refers to one chronic problem with severe progression, exacerbation, or side effects; or one problem with threat to life or bodily function. Examples: any psychiatric illness with suicidal or homicidal ideation or thoughts of self- harm; delirium; any eating disorder with severe medical consequences; major depression with significant functional decline; any severe side effects of psychiatric interventions (NMS, hyponatremia, lithium toxicity syndrome, etc); any psychiatric illness meeting the severe specifier. 2. Data Review/Analysis (check one): Moderate Low refers to (1) review of notes and test results or (2) assessment from a collateral source. Moderate requires one of the following: All three of the following: review of notes, review of test results, assessment from a collateral source. Discussion of test interpretation or management with an external physician/provider (primary team included). High requires both of the following (same options from Moderate above): All three of the following: review of notes, review of test results, assessment from a collateral source. Discussion of test interpretation or management with an external physician/provider (primary team included). 3. Patient Risk (check one): Moderate Minimal refers to minimal risk from additional testing/treatment. Example: Bereavement. No medications recommended. Low refers to low risk from additional testing/treatment. Example: only interventions are minimallyinvasive or otherwise low risk (serum labs, melatonin, continuing an SSRI). Moderate refers to moderate risk from additional testing/treatment. Examples: starting prescriptionmedication with only moderate risk. Moderate also includes diagnosis or treatment significantly limited by social determinants of health such as food/housing insecurity, transportation issues, financial limitations, etc. High refers to high risk from additional testing/treatment. Examples: therapies requiring monitoring of serum level (lithium, valproate), medications with specific identified risks (QTc-prolonging medications in certain patients, SSRIs in patients with risk of bleeding). Discussions of higher levels of psychiatric intervention/care (1:1 sitter, voluntary psychiatric hospitalization, IEA, ECT). Patients who may require medical interventions against their wishes when they lack capacity to refuse those interventions; patients who lack capacity to choose to leave the hospital AMA. Discussion of high risk interventions that may be necessary to ensure safety (parenteral medications for managementof agitation; restraints; security presence). Risk of acute withdrawal. Complexity of MDM Determination: Choose the appropriate level in the first 3 columns based upon what you indicated above. Then 2 outof 3 elements must be met to qualify for the highest appropriate level of complexity. Problems/Diagnosis Data Review/Analysis Patient Risk Complexity of Medical Decision-Making CPT CODE [] Minimal/Low [] Low [] Minimal/Low [] Low 26212 [] Moderate [] Moderate [] Moderate [] Moderate 27684 [] High [] High [] High [] High 91249 Final Coding Determination: Moderate Associated attestation - Luis Enrique Gaspar MD - 06/18/2024 4:58 PM EST Psychiatry Attending Note I saw and evaluated the patient with the resident. I reviewed the patient???s history during the visit and I agree with the details as written. My exam confirms the resident's findings. The assessment and plan were formulated in discussion with me and I agree with them as documented. Major issues addressed/discussed: Agitation I saw Abram this afternoon and he was very sedated. He did not open his eyes to noxious stimuli andwas unable to engage with me. Per unit RN, his mental status tends to fluctuate but today he seems more sedated than other times. A CT head without contrast was obtained today and it did not show anyacute pathology. There are concerns for underlying seizure activity, and he is currently connected to an EEG. Recommendation as per Dr. Chin's note. As Abram appears more sedated today, we do not recommend increasing his night dose of Seroquel XR (keep it at 150 mg qhs for now), and would recommend keeping Seroquel IR 100 mg bid as a PRN (he takes it as a standing medication at his shelter). Given his mild increase in LFTs we also recommend stopping VPA, but if his LFTs normalize in the future then Depakote could certainly be a good option for symptom management. Can continue melatonin and prazosin at night. If patient is severely agitated and his behavior is posing a danger to self/others, can give Haldol2 mg IM q8h. If multiple PRNs of haloperidol and quetiapine are given, would recommend obtaining an EKG to monitor his QTc interval. Psychiatry will evaluate the patient during the weekend and monitor for any benefits/side effects stemming from his current medication regimen. Brittny Hanna MD Department of Psychiatry Pager #[phone] * Pamela Johnson, DO - 06/17/2024 5:30 PM EST Inpatient Medicine Progress Note Hospital Day 3 days Active Hospital Problems Diagnosis Hyponatremia Resolved Hospital Problems No resolved problems to display. Patient ID: Abram Burgos is a 34 y.o. 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 24 Hour Events: -Na 140 --> 141 -Fluid goal 3L -Very agitated overnight, removed IV, swinging at staff, required mitts and sitter ordered. Received 2 mg IV ativan. Then ripped off tele leads -2 mg IV haldol administered with some benefit, then increased agitation -0.25 mg IV ativan given with positive effect -Up out of bed with PT/OT today, recommended d/c back to facility 27/01 supervision -EKG done, Qtc 461 -PO intake up to 1.2L so far -Straight cathed for 175 cc Subjective: Denies complaints including pain, dyspnea Vitals: Last value Range last 24 hrs Temperature Temp: 36.4 ??C (97.5 ??F) Temp: [35.8 ??C (96.5 ??F)-37 ??C (98.6 ??F)] Heart Rate Heart Rate: 65 Heart Rate: [63-97] Blood Pressure BP: 123/90 BP: (102-129)/(75-90) Respiratory Rate Resp: 10 Resp: [10-20] SpO2 SpO2: 99 % SpO2: [94 %-99 %] Ins/Outs: Intake/Output Summary (Last 24 hours) at 06/17/2024 1730 Last data filed at 06/17/2024 1700 Gross per 24 hour Intake 1446 ml Output 825 ml Net 621 ml Patient Vitals for the past 168 hrs: Weight 06/14/24 0102 98.8 kg (217 lb 13 oz) Physical Exam: Gen: NAD, initially combative, then calm answering yes/no questions, follows commands HEENT: MMM CV: Regular Pulm: Clear Abd: Soft, NT Ext: No edema Neuro: no focal deficits grossly noted. Labs: Recent Labs 06/17/24 00206/16/24806/15/24 000 WBC 6.81 7.71 6.30 HGB 12.9* 11.7* 11.9* PLATELET 301 241 269 Recent Labs 06/17/24 1158 06/17/24 0623 06/17/24 0022 06/16/24 0600 06/16/24 0009 06/15/24 0554 06/15/24 0006 NA 141 140 140 < > 131* < > 128* K -- -- 4.1 -- 3.9 -- 4.1 CL -- -- 105 -- 99 -- 97* CO2 -- -- 24 -- 22 -- 19* BUN -- -- 14 -- 12 -- 14 CREATININE -- -- 0.90 -- 0.92 -- 0.74* < > = values in this interval not displayed. Recent Labs 06/17/24 0022 06/16/24 0009 06/15/24 0006 CALCIUM 9.4 8.3* 8.1* MAGNESIUM 0.88 0.85 0.79 PHOS 4.3 3.2 2.8 Recent Labs 06/17/24 1158 AST 37 ALT 58* ALKPHOS 118 BILITOT 0.2 BILIDIR <0.2 No results for input(s): TROPONINT, CK in the last 168 hours. No results for input(s): PHART, EVM8RNK, PO2ART, JNN4TCC in the last 168 hours. Microbiology: None Imaginnd Read CT Head Hypoattenuating, 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 Recommend dedicated MRI brain with and without contrast for further characterization. MRI Brain Homogeneously enhancing 3.5 cm mass along the cisternal right 5th cranial nerve and extending into Meckel's cave. This most likely represents a schwannoma. Differential considerations could include meningioma, though this is felt to be less likely. Inpatient Medications: Scheduled Meds: QUEtiapine XR 150 mg Oral Daily divalproex EC 250 mg Oral BID senna-docusate 2 tablet Oral BID pyridoxine (Vitamin B6) 50 mg Oral Daily polyethylene glycoL (MIRALAX) oral powder 17 g Oral Daily aspirin 81 mg Oral Daily atorvastatin 40 mg Oral QPM hydrocortisone 10 mg Oral Daily before dinner hydrocortisone 20 mg Oral QAM levothyroxine 200 mcg Oral Daily pantoprazole EC 40 mg Oral Daily desmopressin 0.1 mg Oral Daily desmopressin 0.15 mg Oral Nightly heparin (porcine) 5,000 Units Subcutaneous 2 times per day traZODone 100 mg Oral Nightly prazosin 2 mg Oral Nightly baclofen 20 mg Oral TID melatonin 9 mg Oral Nightly montelukast 10 mg Oral Daily zonisamide 400 mg Oral Nightly Continuous Infusions: PRN Meds:.acetaminophen, haloperidol lactate, QUEtiapine, polyethylene glycoL (MIRALAX) oral powderAND bisacodyL AND bisacodyL EC AND lactulose AND lactulose AND magnesium citrate AND Tap water enema Assessment/Plan: Abram Burgos is a 34 y.o. male with PMH significant for TBI, craniopharyngioma (resected 2004, c/b panhypopituitarism), Diabetes insipidus (on DDAVP at baseline), hypothyroidism, Adrenal insufficiency (hydrocortisone 20mg AM and 10mg PM), epilepsy, legally blind, who presents to the ICU on 06/14/24 with seizures due to suspected hyponatremia. Hyponatremia has stabilized and his fluid goal is currently 3L daily. Spoke to Madeleine from the [facility] where he lives. She notes his baseline fluid goal was 3.5L (1.5/1/1). Perhaps this was too much fluid for him. She also describes months of behavioral issues where he can become very combative in a manner of minutes. Will continue current DI regimen and encourage nursing/sitter to reach the 3L goal. Consulted Psychiatry today regarding agitation. Will start long acting quetiapine and continue 100 mg PRN available with haldol IM as a backup. Will also start depakote BID and monitor LFTs. Ativan PRN discontinued. 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, cortical blindness, seizure disorder Zonisamide 400 mg QHS, level wnl ASA 81 mg daily Atorvastatin 40 mg daily Baclofen 20 mg TID Lorazepam 2 mg q4h prn for seizure #Asthma Montelukast 10 mg daily #GERD Pantoprazole 40 mg daily #Acute toxic metabolic encephalopathy #Acute on chronic agitation in setting of seizure and metabolic derangements Quetiapine 150 mg XL daily Quetiapine 100 mg BID prn (first PRN) Haldol IM 2mg BID prn (2nd PRN) Depakote 250 mg BID, monitor LFTs #Home meds Melatonin 9 mg QHS Trazodone 100 mg QHS Prazosin 2 mg QHS Resume home pyridoxine 50 mg daily #Hx constipation Miralax daily Bowel regimen prn #3.5 cm Right middle cranial fossa mass, uncertain etiology schwannoma vs meningioma Outpatient neurosurgery followup # Other - DVT ppx: SQH - Diet/Fluids: Regular - Access: pIV - Code Status: FULL - Dispo: Back to shelter when MR GonzalezPamela E DO [facility] medicine Service: [id number] 06/17/2024 * Roya Kingsley, OT - 06/17/2024 9:42 AM EST Occupational Therapy Treatment Note Treatment Number OT: 2 Patient profile: Abram Burgos is a 33 y.o. male admitted on 06/14/2024 with a PMH significant for TBI, craniopharyngioma (resected 2004, c/b panhypopituitarism), Diabetes insipidus (on DDAVP at baseline), hypothyroidism, Adrenal insufficiency (hydrocortisone 20mg AM and 10mg PM), epilepsy, legally blind, who presents to the ICU on 06/14/24 with seizures. No past medical history on file. Past Surgical History: Procedure Laterality Date PRO OPEN MEDICARE CONTACT SPECIALIST FIX ACETABULAR FX Left 09/04/2017 @OPEN TREATMENT, ACETABULAR FX (WRVU 25.41) performed by Amy Lance MD at [facility] MAIN OR Social History: Patient lives in a shelter. Home Setup: accessible DME: none Baseline ADL/Mobility: assistance from staff. Devices removed 2/2 safety concerns (had white cane but removed). Sister also assists as able. Precautions/Special Considerations: full code, falls, seizure precautions, regular diet, PIV, AAT Interval History: (Per Neurology note on 06/17/24) Yesterday: - spoke with pt's guardian Bettina concerning pt's behavior, see prior consult note Overnight: - moved rooms at 21:00, received prn IV Ativan 2 mg at 23:46. Dexmetedomidine discontinued as transitioned to floor yesterday in AM. - got 100 mg x2 quetiapine prn on top of scheduled dosing - prn tylenol at 04:48 Today: - Pt with covers over head though following commands. Pt with 1:1 sitter and per conversation with nursing pt has been aggressive and combative requiring multiple sedating medications as documented above. S: Pt with garbled speech and difficult to understand most of session O: Patient seen for skilled OT treatment, and demonstrated the following: Self-care/Functional Mobility: Pt received supine in bed, agreeable to participating in session, although intermittently agitated Dependent to don socks and gown while supine Supine to sit: min assist x 1 with HOB elevated, increased time and cues provided Set-up assist to wash face and hands sitting EOB Sit to stand x 2 from EOB: min assist x 2 with GENERAL [employer]OR Pt able to side step to L side ~4-5 steps with min assist x 2 using GENERAL [employer], cues provided for step initiation and sequencing Stand to sit x 2: min assist x 2 with GENERAL [employer]OR Sit to supine: mod assist x 2 with HOB mostly flat Pt able to boost himself without assistance Dependent to doff socks Pt became agitated several minutes after returning to supine. Pt attempting to pull gown off and whipping blanket around before pulling it up over his face Pt left supine in bed with all needs met, call light in reach and 1:1 sitter at bedside, RN updatedon session Cognition: Behavior / Mood: cooperative, agitated, and impaired task initiation, pt with bouts of agitation mixed with calm and pleasant bouts Alert and oriented to: person Follows commands: 1 step, 100% of the time, and requires increased time Attention: distractible, difficulty attending to task/directions, and requires cues to redirect Safety awareness: decreased insight into deficits and impulsive Pt was able to follow all commands throughout session and was eager to participate in OOB activity.However, soon after returning to supine pt was somewhat agitated and grasping and pulling at gown and blankets Vision: legally blind Vitals: BP: 121/88 (100) Strength/ROM: grossly WFL in all extremities but moving against gravity to complete functional tasks Pain: unable to verbalize if having pain Education: Pt/family/caregiver education ongoing regarding: Role of occupational therapy/rehabilitation, Transfers, ADL, Safety, Precautions/Protocol, Functional Mobility, Activity pacing/Energy conservation, Home Management, Balance, Recommendations, and Discharge planning. Staff Communication: Patient status, treatment, and mobility recommendations discussed with nursing/other staff. ASSESSMENT: Pt seen this morning for OT treatment session to progress POC. Abram was pleasant, cooperative and eager to participate in OOB activities. He was able to transition to sitting EOB and complete light grooming tasks with only set-up assist. He also completed sit to stand x 2 and take minimal side steps to L side with GENERAL [employer]OR. Unsure of pt's most recent functional status but anticipate pt will be able to return to his shelter pending level of assistance they can provide. Pt will benefitfrom ongoing therapeutic interventions to achieve pt's and therapy goals. Anticipated Discharge Disposition (OT): other (see comments) (return to shelter) Equipment Recommendations: Equipment Needs Upon Discharge (OT): to be determined EPM Level 4: Pivot to chair/commode, Participate in self care Daily schedule / Staff Recommendations: Open shades and turn on lights during the day/lights off at night, Set-up patient with ADL tasks, allow patient to complete ADL tasks as independently as possible Assist patient to the toilet (no bed dutta) Provide choices as able, encourage safe coping skills (such as music, reading, coloring, word search, journaling) Have patient sit up in recliner, sit EOB, or bed in chair position during the day as much as possible Sit upright for all meals Ambulate as tolerated Occupational Therapy Goals: To be achieved by 06/28/24. Patient will complete sink level ADLs with supervision and least restrictive assistive device. Patient will participate in LB dressing with Min A and least restrictive assistive device. Patient will transfer to the toilet with CGA of one person safely. Patient will complete jenise-care and clothing management with SBA and least restrictive assistive device. Spouse and/or family will demonstrate and state safe techniques to assist and care for the patient and limit harm to themself. Therapy Frequency (OT): 1-3 more times Total Minutes, Occupational Therapy: 28 (09:42-10:10 SCx2) Pager: [phone] Roya Kingsley OTR/L Occupational Therapy Rehabilitation Department * Tomás Priest, RN - 06/16/2024 8:58 PM EST Abram Burgos arrived to 349 @ 2100.Oriented to room, call morris within reach, educated on importance of using prior to getting OOB, AVSS, belongings updated in eDH, bed locked in low position, purposeful hourly rounding, bed/chair alarm on. * Ludivina Stover, PT - 06/16/2024 9:34 AM EST Physical Therapy Evaluation Patient profile: Abram Burgos is a 34 y.o. male not on any antiplatelet or anticoagulation therapy, with a history notable for craniopharyngioma resection c/b panhypopituitarism, bilateral thalamicstrokes, blindness, and epilepsy who is admitted to the MICU for seizures and hyponatremia. Per family, he is at his neurologic baseline. CT head revealed a circular hypodensity in the medial right anterior aspect of the middle cranial fossa of unclear etiology. Follow up MRI Brain wwo contrast was obtained and shows a homogenously enhancing mass along the R 5th cranial nerve c/f schwannoma vs meningioma. There is not much mass effect and no edema. Patient with the following active problems: No past medical history on file. Past Surgical History: Procedure Laterality Date EEG CONTINUOUS MONITORING INPATIENT 2024 PRO OPEN MEDICARE CONTACT SPECIALIST FIX ACETABULAR FX Left 09/04/2017 @OPEN TREATMENT, ACETABULAR FX (WRVU 25.41) performed by Amy Lance MD at [facility] MAIN OR Social History: Home setup: Pt resides in an accessible shelter in [facility] Baseline Mobility/Prior level of function: Had assistance for ADLs and IADLs, does not use a device. DME: unknown Precautions/Special Considerations: fall risk; activity as kendra; legally blind Activity Orders (From admission to next 72h) Start Ordered Unscheduled Activity as tolerated PRN 06/14/24 0057 No active infections No active isolations Patient Lines/Drains/Airways Status Active Tubes/Lines/Drains Name Placement date Placement time Site Days PIV 06/15/24 0245 20 gauge basilic vein (medial side of arm), right 06/15/24 0245 -- 1 Active Orders Diet Regular diet Frequency: Effective Now Number of Occurrences: Until Specified Mobility and Positioning Recommendations: EPM Level 5: Ambulate, Participate in self care Pt. to utilize B handhold and min A for ambulation and transfers with nursing. Please encourage up to chair for meal times as able. Pt encouraged to ambulate frequently with staff, getting into the bathroom for toileting and walking out in the quinn >/= 3 times daily as able. Subjective: Pt's speech is dysarthric and difficult to understand but he made basic needs known (I'm peeing!, Have to poop) and answered yes/no questions appropriately. Objective: Pt seen for evaluation today with assistance from RN and mobility tech Pain: none reported, in NAD for duration of session Vital Signs: HR: 70bpm SpO2: 99% on RA BP: 125/63 Mental status: alert, cooperative, impaired task initiation Orientation: difficult to assess, re-oriented pt to location, date and situation. Safety Awareness: decreased safety awareness and insight, impulsive, redirectable. Command followin% of the time and requires repetition and multi-modal cues Attention: distractible, difficulty attending to task/directions, tended to be distracted by lines in particular. Vision: legally blind Skin: multiple areas of scabbed abrasions on pt's trunk and R hip Musculoskeletal: ROM: B LEs grossly WFL except for Bhip and knee extension, with knees lacking at least 20 degrees of AROM bilaterally. Strength: difficult to formally assess, B LEs appear grossly at least 3/5 based on automatic movements. L side grossly weaker than R. Bed Mobility: Supine to Sit: min A to pull self upright Sit to Supine: supervision Boosting: max A x2 with pt assisting by pushing against footboard Transfers: Sit to Stand: min Ax2 with B handhold Stand to Sit: min Ax2, decreased eccentric control noted Bed to Chair: NA Toilet: min Ax2 with B handhold Gait: Distance: 10ftx2, bed to/from toilet Device used: no device Level of assist: min Ax2 Gait mechanics: Decreased gait speed and carmen, decreased B step length, NBOS, excessive B knee flexion, hip flexion and hip external rotation. Stairs: NA Seated Balance: Static: variable from good to poor, able to sit unsupported with supervision but tended to lean backward and laterally to the R, requiring cues to return to upright Dynamic: fair Standing Balance: Static: poor, required min Ax2 for balance Dynamic / Gait: poor, required min Ax2 for balance while ambulating Education: patient has been educated on Bed mobility, Transfers, Safety , Precautions/protocol, Gait , Activity pacing/Energy conservation, Role of therapy, and Discharge planning and verbalized understanding but will benefit from ongoing reinforcement. Patient status, treatment, and mobility recommendations discussed with nursing. Assessment: Pt seen today for physical therapy initial evaluation. Pt presents with decreased L sided strength, impaired balance, postural and motor control, impaired communication, impaired cognition, and impaired vision. These impairments currently limit pt's ability to safely and independently perform functional mobility tasks, including bed mobility, transfers, ambulation, stair negotiation, and daily activities. Pt expressed his need to use the toilet today; he was assisted OOB and ambulated a short distance to the toilet and back with handhold assist x2 for steadying. Anticipate that mobility will continue to improve with practice, however per chart review pt did require staff assistance for mobility and ADLs at baseline. Recommend d/c to swing bed rehabilitation vs return to shelter when medically stable, pending functional progress while in the hospital and level of care available at shelter. Pt will benefit from ongoing physical therapy to address the above impairments and facilitate return to PLOF. Discharge Recommendations: Based on the current findings, Anticipated Discharge Disposition (PT): swing bed rehabilitation facility, adult foster care/shelter when medically ready for hospital discharge. Plan: Therapy Frequency (PT): 2-3 times/wk for therapy including balance training, bed mobility training, gait training, stair training, strengthening, transfer training, and endurance training . Consult Recommendations: No other consults recommended at this time. Equipment needs: TBD Goals: To be achieved by 06/30/24: Pt. to perform bed mobility with supervision. Pt. to perform sit to stand and stand pivot transfers with CGA using one hand hold. Pt. to ambulate at least 50 feet with CGA using a one hand hold. 2017 PT Evaluation Code Rationale: Diagnosis & Pertinent Co-Morbidities, personal factors, and present illness affecting Plan of Care: (see above); Additional personal factors or co- morbidities that impact plan: Total # of Factors: 0 1-2 3+ X (admitted for seizures; complex PMH; lives in shelter) Examination of body system impairments, functional limitations and behaviors, and/or participation restrictions. Addressing 1-2 elements Addressing 3 + elements Addressing 4 + elements X Clinical presentation: See assessment above. Stable/Uncomplicated Evolving/Fluctuating Symptoms Unstable/Unpredictable X Clinical decision making of moderate complexity based on pt's functional performance as outlined inthis evaluation. Time IN / OUT: 6062-6475 Total Minutes, Physical Therapy: 30 (eval). Ludivina Stover, PT DPT 06/16/2024 Pager: [phone] Physical Therapy Inpatient Rehabilitation Department * Christopher Stanley MD - 06/16/2024 8:24 AM EST Critical Care Staff I saw and examined the patient. 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 Respiratory Support: room air On exam, Abram is calm, eating breakfast with assistance from his nurse Jak, listening to musicon headphones. Cor reg, abdomen soft. Mucous membranes moist Fluid Balance: Intake/Output Summary (Last 24 hours) at 06/16/2024 0824 Last data filed at 06/16/2024 0600 Gross per 24 hour Intake 1550 ml Output 1275 ml Net 275 ml Pertinent Labs WBC 7.7 Hgb 11.7 Platelets 241 Na 131 K 3.9 Cl 99 HCO3 22 Bun 12 Cr 0.92 Ca 8.3 Mg 0.85 PO4 3.2 T4, T3 within normal limits Zonisamide level pending Urine Na 76 Urine osm 496 Serum osm 259 Microbiology No positive studies Radiology & Studies MRI brain wwo IMPRESSION Homogeneously enhancing 3.5 cm mass along the cisternal right 5th cranial nerve and extending into Meckel's cave. This most likely represents a schwannoma. Differential considerations could include meningioma, though this is felt to be less likely. Assessment and Plan Breakthrough seizures in the setting of hyponatremia and [employer]MER structural abnormalities. This most likely provoked by new hyponatremia rather than chronic structural brain disease. Our working theory is hyponatremia provoked by issues with fluid restriction at his shelter, and it is so far improving at an appropriate rate with conservative management including fluid restriction while we continuehis home DDAVP for central DI. He is not yet at his baseline sodium and continues to correct on a 2L fluid restriction, so finding the correct balance between this and his DDAVP dosing is an ongoingproject. Neuro: Home zonisamide (level pending), baclofen. Home quetiapine, prazosin. Neurology, neurosurgery input appreciated CV: Home statin and aspirin Resp: Home montelukast GI: Tolerating diet, 2 L fluid restriction for Na issues. When Na corrected may trial more liberal fluid intake to maintain steady state Renal: Monitor Na, goal correction < / = 6 mmol / L. 2 L fluid restriction. Continue home dose of DDAVP, may consider dose reductions if sodium does not rise appropriately with fluid restriction but currently on track Endo: Goal blood glucose 140-180. Continue home hydrocortisone, levothyroxine. Continue current dose of DDAVP as above Heme: SQH PPX ID: No current evidence of infection Prophylaxis: SQH, HOB > 30 Tubes/Lines/Drains: PIV Code Status: Full Communication: We will update Abram's guardian Disposition: No ICU needs. Discuss transfer to neurology with endocrine consultation for DDAVP / Namanagement Christopher Stanley MD IPI Certification I certify that I am a D-H credentialed attending provider with admitting privileges and that the patient meets or has met medical necessity to require an inpatient IPI level of care meeting a minimumof two midnights or is on the [facility] inpatient only procedure list (status C) due to: monitoring of fluid status given an inability to regulate fluid balance and the need for administration or restriction of fluids and breakthrough seizures * Lauren Ruby MD - 06/16/2024 6:54 AM EST [facility] NEUROSURGERY PROGRESS NOTE ID: Abram Burgos 34 y.o. male : 1990 LOS: 2 Neurosurgical Procedures this Admission: None INTERVAL Hx: -MRI Brain wwo done -Neuro stable -Hyponatremia improving MEDICATIONS: Scheduled Meds: aspirin 81 mg Oral Daily atorvastatin 40 mg Oral QPM hydrocortisone 10 mg Oral Daily before dinner hydrocortisone 20 mg Oral QAM levothyroxine 200 mcg Oral Daily pantoprazole EC 40 mg Oral Daily desmopressin 0.1 mg Oral Daily desmopressin 0.15 mg Oral Nightly heparin (porcine) 5,000 Units Subcutaneous 2 times per day traZODone 100 mg Oral Nightly QUEtiapine 100 mg Oral BID prazosin 2 mg Oral Nightly baclofen 20 mg Oral TID melatonin 9 mg Oral Nightly montelukast 10 mg Oral Daily zonisamide 400 mg Oral Nightly Continuous Infusions: PRN: QUEtiapine, 100 mg, BID PRN LORazepam, 2 mg, Q4H PRN EXAM: Temp: [35.4 ??C (95.7 ??F)-36 ??C (96.8 ??F)] Heart Rate: [56-91] Resp: [11-22] BP: (91-123)/(56-80) SpO2: [96 %-100 %] Heart Rate from SpO2: [62 bpm-90 bpm] I/O: Intake/Output Summary (Last 24 hours) at 06/16/2024 0722 Last data filed at 06/16/2024 0600 Gross per 24 hour Intake 1550 ml Output 1325 ml Net 225 ml Drains: None GEN: Adult male, lying in bed, restlessly moving sheets around NEURO: AA+Ox3 Speech disarticulate and dysarthric but fluent and appropriate. PERRL. Dysconjugate gaze but able to look around in all directions in uncoordinated manner. V1-3 intact bilaterally Face symmetric with activation Hearing intact bilaterally to finger rub Palate/uvula midline Trapezius 5/5 bilaterally Tongue midline No pronator drift MOTOR: RUE:5/5 LUE:5/5 RLE: 5/5 LLE: 5/5 LT sensation intact x 4 LABS: Recent Labs 06/16/24 0009 06/15/24 0006 06/14/24 0527 WBC 7.71 6.30 8.68 HGB 11.7* 11.9* 12.5* PLATELET 241 269 284 Recent Labs 06/16/24 0600 06/16/24 0009 06/15/24 1758 06/15/24 0554 06/15/24 0006 06/14/24 0806 06/14/24 0527 NA 131* 131* 129* < > 128* < > 124* K -- 3.9 -- -- 4.1 -- 4.0 CL -- 99 -- -- 97* -- 93* CO2 -- 22 -- -- 19* -- 19* BUN -- 12 -- -- 14 -- 14 CREATININE -- 0.92 -- -- 0.74* -- 0.76* < > = values in this interval not displayed. No results for input(s): PT, INR in the last 72 hours. IMAGIN06/15/24 MRI Brain wwo contrast IMPRESSION Homogeneously enhancing 3.5 cm mass along the cisternal right 5th cranial nerve and extending into Meckel's cave. This most likely represents a schwannoma. Differential considerations could include meningioma, though this is felt to be less likely. Assessment: 34 y.o. male not on any antiplatelet or anticoagulation therapy, with a history notablefor craniopharyngioma resection c/b panhypopituitarism, bilateral thalamic strokes, blindness, and epilepsy who is admitted to the MICU for seizures and hyponatremia. Per family, he is at his neurologic baseline. CT head revealed a circular hypodensity in the medial right anterior aspect of the middle cranial fossa of unclear etiology. Follow up MRI Brain wwo contrast was obtained and shows a homogenously enhancing mass along the R 5th cranial nerve c/f schwannoma vs meningioma. There is not much mass effect and no edema. Additionally, patient is not symptomatic from this - he remains at his neurologic baseline, vEEG was negative for seizures (and seizures on presentation were more likely due to his severe hyponatremia - 123 on admit with jazmín of 122 while at [facility] thus far corrected to 131). Therefore no acute neurosurgical intervention warranted. We will follow up with the patient and hisfamily/legal guardian outpatient to discuss management options. We are signing off for now, rest ofcare per primary, but remain available at pager [phone] should further questions/concerns arise. Plan: -No acute neurosurgical intervention warranted -We are signing off now, but will follow up outpatient with patient/family to discuss management options -Rest of care per primary including frequency of neuro checks For questions please call NSGY pager [phone] Lauren Ruby MD 06/16/2024 7:22 AM Clinical Documentation Improvement: Active Hospital Problems Diagnosis Hyponatremia Resolved Hospital Problems No resolved problems to display. * Maxine Silverio, PT - 2024 11:20 AM EST Physical Therapy Note 06/15/24 1120 Evaluation & Treatment Document Type contact Total Minutes, Physical Therapy 0 Comment, Session Not Performed Spoke with RN regarding patient's status. She stated patient has been assisted up to the commode and stated that less is more right now due to patient's agitation andripping things off when stimulated. He was uncooperative for MRI with precedex yesterday so is awaiting MRI under anesthesia today. Per neuro, no seizures on EEG. Will follow up with him tomorrow. Maxine Silverio, PT Pager [phone] * Christopher Stanley MD - 2024 8:13 AM EST Critical Care Staff I saw and examined the patient. Active Problems: Hyponatremia, likely due to excess free water intake Acute toxic metabolic encephalopathy Seizures Epilepsy History of craniopharyngioma, status post resection 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on levothyroxine, hydrocortisone, DDAVP) Right middle cranial fossa mass, uncertain etiology 24 Hour Events: Tried MRI with precedex, un-cooperative, planned with anesthesia today Na up to 128 with fluid restriction, continuation of home DDAVP cEEG with no seizures reported Physical Exam Last value Range last 24 hrs Temperature Temp: 35.5 ??C (95.9 ??F) Temp: [35.5 ??C (95.9 ??F)-36.6 ??C (97.9 ??F)] Heart Rate Heart Rate: 61 Heart Rate: [39-83] Blood Pressure BP: 97/62 BP: (90-111)/(54-90) Respiratory Rate Resp: 18 Resp: [10-26] SpO2 SpO2: 99 % SpO2: [92 %-99 %] Art BP BP (Arterial Line): -- Body mass index is 31.18 kg/m??. Respiratory Support: room air On exam, Abram is calm and lightly sedate on precedex. Some excoriations across upper abdomen and trunk. Moist mucous membranes, peripheries warm without edema. 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 Recommend dedicated MRI brain with and without contrast for further characterization. MRI pending Assessment and Plan Breakthrough seizures in the setting of hyponatremia and AUTOMATIC HEMMER structural abnormalities. This most likely provoked by new hyponatremia rather than chronic structural brain disease, but as yet uncertain. 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 Seizures less likely provoked by the as yet not fully characterized cystic lesion on his head imaging, although structural brain disease does increase his overall risk of seizures. Neuro: Home zonisamide (level pending), baclofen. Home quetiapine, prazosin. MRI pending which willrequire anesthesia. Wean off dexmedetomidine. CV: Home statin and aspirin Resp: Home montelukast GI: NPO pending MRI with anesthesia Renal: Monitor Na, goal correction < / = 6 mmol / L. 2 L fluid restriction. Continue home dose of DDAVP, may consider dose reductions if sodium does not rise appropriately with fluid restriction but currently on track Endo: Goal blood glucose 140-180. Continue home hydrocortisone, levothyroxine. Continue current dose of DDAVP as above Heme: SQH PPX ID: No current evidence of infection Prophylaxis: SQH, HOB > 30 Tubes/Lines/Drains: PIV Code Status: Full Communication: We will update Abram's guardian Disposition: MICU while on dexmedetomidine for agitation Christopher Stanley MD IS PATIENT CRITICALLY ILL ? Is there a high potential of sudden, clinically significant, or life threatening deterioration? Yes Is there a need for direct personal assessment and management to treat/prevent multiple vital organfailure/deterioration? Yes PATIENT IS CRITICALLY ILL WITH THESE DIAGNOSES BEING MANAGED BY [facility] TEAM: Acute toxic metabolic encephalopathy on dexmedetomidine for agitation Hyponatremia Seizures I personally performed 30 minutes of aggregate critical care time exclusive of procedures and teaching. This includes time spent during direct patient evaluation and reassessment, interpreting diagnostic tests, directing life and/or organ supporting interventions and documentation on the unit. * Maxine Silverio PT - 06/14/2024 12:15 PM EST Physical Therapy Note 06/14/24 1215 Evaluation & Treatment Document Type contact Total Minutes, Physical Therapy 0 Comment, Session Not Performed PT consult received, chart reviewed and spoke with nursing staff regarding status. He has been pulling at lines and recently required increased sedation in preparation for an MRI. Will follow up with him tomorrow for evaluation as appropriate. Pain Assessment Pain Score 0 Vital Signs Heart Rate from SpO2 68 bpm Heart Rate 70 Heart Rate Source Monitor Resp 15 BP 96/62 MAP (NBP) 73 mmHg BP Method Automatic Patient Position Lying SpO2 95 % O2 Device RA Maxine Silverio, PT Pager [phone] * Wilder Davis - 06/14/2024 11:19 AM EST Per nurse, patient will be better able to tolerate EEG lead placement after meds given, will attempt this afternoon. * Christopher Stanley MD - 06/14/2024 8:05 AM EST Critical Care Staff I saw and examined the patient. 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 admitted to the intensive care unit for seizure in the setting of hyponatremia. He has beenon stable doses of DDAVP and other medications for dutta hypopituitarism. His guardian is uncertain whether he has had indiscretion with his fluid restriction of late. His seizure medications have not been adjusted based on our knowledge. Was at shelter when he had ~2 minute tonic clonic seizure. Presented to [facility] where he was found to be hyponatremic. Given hypertonic saline and ativan and transferred to [facility] [place]. Physical Exam Last value Range last 24 hrs Temperature Temp: 36.4 ??C (97.5 ??F) Temp: [36.4 ??C (97.5 ??F)-36.5 ??C (97.7 ??F)] Heart Rate Heart Rate: 79 Heart Rate: [73-89] Blood Pressure BP: 104/61 BP: (104-132)/(61-120) Respiratory Rate Resp: 12 Resp: [12-19] SpO2 SpO2: 95 % SpO2: [93 %-98 %] Art BP BP (Arterial Line): -- Body mass index is 31.18 kg/m??. Respiratory Support: room air On exam, Abram is awake and interacts with simple answers. At times flailing but shook my hand purposefully. Moist mucous membranes, abdomen soft, peripheries warm without edema. Fluid Balance: Intake/Output Summary (Last 24 hours) at 06/14/2024 0805 Last data filed at 06/14/2024 0600 Gross per 24 hour Intake 150 ml Output 0 ml Net 150 ml Pertinent Labs WBC 8.6 Hgb 12.5 Platelets 284 Na 124 K 4 Cl 93 HCO3 19 BUN 14 Cr 0.76 Ca 7.9 Mg 0.87 T4, T3 within normal limits Zonisamide level pending Urine Na 76 Urine osm 496 Serum osm 259 Microbiology No positive studies Radiology & Studies 2nd read of CT head pending, images reviewed with ~3 * 3 * 3 cm right middle crania fossa Assessment and Plan Breakthrough seizures in the setting of hyponatremia and AUTOMATIC HEMMER structural abnormalities. 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 Will fluid restrict and continue current doses of dutta- hypopituitarism medications and discuss with endocrine. His right middle cranial fossa lesion needs further evaluationbut I doubt this alone is the reason he had a seizure. While Abram doesn't have strict ICU indications, will clarify plans with multiple consulting services before considering transfer as there are many competing priorities for his care. Neuro: Home zonisamide (level pending), baclofen. Home quetiapine, prazosin. MRI may be needed to clarify further, but he has previously required anesthesia for this. 2nd read of CT head requested asa starting point. Anticipate neurology input regarding seizure Rx and neurosurgery input regarding structural lesion CV: Home statin and aspirin Resp: Home montelukast GI: Advance diet as tolerated Renal: Monitor Na, goal correction < / = 6 mmol / L. Check every 6 hours. 2 L fluid restriction.Continue home dose of DDAVP, may consider dose reductions if sodium does not rise appropriately with fluid restriction Endo: Goal blood glucose 140-180. Continue home hydrocortisone, levothyroxine. Continue current dose of DDAVP as above Heme: SQH PPX ID: No current evidence of infection Prophylaxis: SQH, HOB > 30 Tubes/Lines/Drains: PIV Code Status: Full Communication: Updated Abram and his guardian at bedside Disposition: Observe in ICU while we gather more data; may be able to transfer to medicine later today vs tomorrow Christopher Stanley MD IPI Certification I certify that I am a [facility] credentialed attending provider with admitting privileges and that the patient meets or has met medical necessity to require an inpatient IPI level of care meeting a minimumof two midnights or is on the CMS inpatient only procedure list (status C) due to: monitoring of fluid status given an inability to regulate fluid balance and the need for administration or restriction of fluids and seizur * Marline Calderon APRN - 06/14/2024 6:42 AM EST Critical Care Progress Note Abram Burgos : 1990 Admitted: 06/14/2024 12:57 AM Hospital day: 0 ICU day: ID: Abram Burgos is a 33 y.o. 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 He was found to be hypon atremic to 121 (from apparent baseline in 140s). At [facility] he received 150cc 3% NaCl and 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 He wastransferred to [facility] [place] where sodium of 122 was treated with 50cc 3%NaCl and Neutra-Phos. No evidence of seizure since arrival. Neurology, neurosurgery, and endocrine teams were consulted. Hospital/ICU course has been significant for: #Hyponatremia #Seizure Activity (prior to arrival at [facility] [place]) #possible enlarging lesion in R middle cranial fossa 24-hour events: -Transferred to [facility] [place] -Na treated with 3% (once at OSH, once at ) -Na trending up appropriately -EEG monitoring intiated -MRI ordered Subjective/ROS: Denies pain. Limited ability for subjective assessment. Last value Range last 24 hrs Temperature Temp: 36.6 ??C (97.9 ??F) Temp: [36.4 ??C (97.5 ??F)-36.6 ??C (97.9 ??F)] Heart Rate Heart Rate: 65 Heart Rate: [55-89] Blood Pressure BP: 93/54 BP: (93-132)/(54-120) Respiratory Rate Resp: 14 Resp: [12-25] SpO2 SpO2: 92 % SpO2: [92 %-99 %] Art BP BP (Arterial Line): -- No results for input(s): PHART, SCU6XTG, PO2ART, FDW8ZWO in the last 168 hours. Intake/Output Summary (Last 24 hours) at 06/14/2024 1601 Last data filed at 06/14/2024 1400 Gross per 24 hour Intake 450 ml Output 2000 ml Net -1550 ml Output: voiding Physical Exam: General: No apparent distress HEENT: Mucosa moist, pink. Sclera anicteric. Irregularly shaped skull Neuro: Disconjugate gaze. Moves all extremities. Pulmonary: LS clear Cardiovascular: S1/S2, no M/R/G, reg rate and rhythm Abdomen: Soft, NTND : No morse Extremities: No peripheral edema Skin: Warm, dry, appropriate tone Labs Last wbc, hgb, hct plt Recent Labs 06/14/24 0527 WBC 8.68 HGB 12.5* HCT 35.8* Last 3 Lytes Recent Labs 06/14/24 1415 06/14/24 1212 06/14/24 1035 06/14/24 0806 06/14/24 0527 06/14/24 0332 06/14/24 0103 NA 126* 125* 125* < > 124* < > 123* K -- -- -- -- 4.0 -- 3.7 CL -- -- -- -- 93* -- 91* CO2 -- -- -- -- 19* -- 19* BUN -- -- -- -- 14 -- 14 CREATININE -- -- -- -- 0.76* -- 0.80 < > = values in this interval not displayed. ECG: Imaging: large hypoattenuating mass in the right middle cranial fossa which was seen on imaging in September 2023 but appears larger and is concerning for enlarging neoplasm. He also also stable encephalomalacia . Medications/Drips: dexmedeTOMIDine 0.1 mcg/kg/hr (06/14/24 1545) Microbiology: Microbiology Results (Last 30 days) No results found for the last 720 hours. Antimicrobials: None Assessment: Abram is a 33 year old male with the PMH described above who presented following a tonic-clonic seizure and was found to be hyponatremic to 121 from reported baseline in mid to high 140s.Per his sister, he has reportedly been stable from the standpoint of seizures as well as his hyponatremia for several years. While a sodium of 121 is not typically associated with seizures, it's quite possible that with his history of epilepsy he has a lower threshold and is more sensitive to changes in sodium. Regarding his hyponatremia, unclear what precipitated it. He reportedly has had some recent medication changes in response to behavioral issues and trouble sleeping, but in discussing with his psychiatrist these changes were made in December and there are no clear culprit meds on his list.At his shelter he is maintained on a 3.5L fluid restriction but his sister endorses that he might not always have adequate oversight on this. He reportedly has had severe recurrence of his DI withholding of his DDAVP, so we will continue this as previously dosed and employ a more conservative fluid limit of 2L. So far, his sodium has been responding appropriately and he is on track to achievea goal of 127 this evening. Neurology is consulted for evaluation of his seizures; a zonisamide level is pending and EEG monitoring has been ordered. Neurology is following for input on his cranial fossa lesion, for which an MRI has been ordered to better characterize it. Plan: Neuro: #Epilepsy- per sister, no seizures for several years. -Zosinamide level pending -Zosinamide 400 mg nightly -neurology consulting, appreciate recs -continuous EEG #R cranial fossa mass -MRI ordered -dexmedetomidine for MRI -neurosurgery consulted -Home meds: Baclofen 20 mg TID, melatonin 9 mg nightly, seroquel 100 mg BID, prazosin 2mg nightly, trazodone 100 mg nightly Pulm: #Asthma -montelukast 10 mg daily CV: JAMAL -ASCVD risk- continue atorvastatin 40 mg daily, ASA 81 mg GI: #GERD -pantoprazole 40 mg daily for home omeprazole -Regular diet with 2L fluid restriction Renal/FEK: -Goal 127 by this evening -s/p 50 mL 3%, NaPhos -122 --> 124-->125 -Continue home desmopressin -Na q2h -Urine lytes, osmo Hematology: -DVT ppx: heparin 5000U SQ q8h ID: [id number] Endocrine: Panhypopituitarism -Endocrine consulted, appreciate recs -continue hydrocortisone 20 mg every morning, 10 mg every evening -levothyroxine 200 mcg daily -Continue DDAVP 100 mcg in AM, 150 mcg in PM Prophylaxis: Heparin for DVT prophylaxis Pantoprazole for GI prophylaxis Lines/Tubes/Drains PIV Consults: Endocrine, Neurology, Neurosurgery Decision Making: Code Status: Attempt Cardiopulmonary Resuscitation - Inpatient Summary of changes to be made today: -MRI brain -Trend sodium q2, target 127 this evening Patient seen and examined with Dr. Lizeth Calderon APRN June 14, 2024 Pager #[phone] Critical Care Green Team documented in this encounter H&P Notes * Tim Yuen MD - 06/16/2024 11:50 AM EST Medicine Admission H&P Patient Name: ABRAM BURGOS Date of : 1990 Age: 34 y.o. Hospital Admit Date: 06/14/2024 Inpatient Attending: Christopher Stanley MD PCP: Ren Vaz MD Presenting Diagnosis/Chief Complaint: Seizures History of Present Illness: Abram Burgos is a 34 y.o. male with hx of TBI, craniopharyngioma (resected 2004, c/b panhypopituitarism), Diabetes insipidus (on DDAVP at baseline), hypothyroidism, Adrenal insufficiency (hydrocortisone 20mg AM and 10mg PM), epilepsy, legally blind, who presents to the ICU on 06/14/24 with seizures. The patient was transferred from [facility] from a shelter ([facility]) for a seizure. He had been in his usual state of health, though notably he did have COVID within the past month. He reported that he had not been missing any of his medications, however due to some recent behavioral troubles and problems with sleeping, some of his medications have been altered recently. Hospital course notable for: Hyponatremia: Presented to [facility] following witnessed tonic-clonic seizure at detention, found to have sodium of 122. On transfer to , sodium 122 and treated with 50cc 3%NaCl. Trending q2 for goal 127-128 by 20:00 on 06/14. DDAVP discussed with endocrine, plan to maintain current regimen as Abram has historically dropped his sodium rapidly with changes to DDAVP. Most likely cause for hyponatremiais nonadherence to fluid restriction; less likely medication changes. Endocrine consulting. Na improved to 131 as of today. Hypoattenuating mass: First noted on CT in September 2023. 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 MRI ordered which showed the mass to be 3.5cm homogenously enhancing and thought to be likely Schwannoma vs meningioma. Neurosurgery was consulted and stated that since patient is asymptomatic from this, neurologically at his baseline, that no neurosurgical interventions were warranted at this time. They plan to follow up with him outpatient along with his family/legal guardian to discuss management options. Seizures: 2 min tonic-clonic seizure witnessed at shelter, 30 sec seziure at [facility] ED (2mg ativangiven). None since arrival to . Possibly due to hyponatremia, if seizure threshold lowered at baseline may be more sensitive to sodium shifts. Unclear whether R cranial fossa mass may be playing a role, neurology and neurosurgery consulted. Per sister has been stable on zonisamide without seziures for several years. EEG monitoring showed moderate generalized slowing of background and R hemispheric slowing c/w moderate encephalopathy. The R hemispheric slowing was thought to be attributable tothe 3.5 cm Schwannoma vs meningioma. Zonisamide level pending. Today, Abram states that he does not have any complaints. Review of Systems(Positives in Bold): Unable to obtain d/t patient's dysarthria Past Medical History: No past medical history on file. 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 Secondary hypothyroidism E03.8 Seizure disorder G40.909 Insomnia G47.00 Blind H54.7 CVA (cerebral vascular accident) I63.9 Urinary incontinence R32 Gastroesophageal reflux disease K21.9 Osteoporosis M81.0 Sleep disorder G47.9 Hyponatremia E87.1 Past Surgical History: Past Surgical History: Procedure Laterality Date EEG CONTINUOUS MONITORING INPATIENT 2024 PRO OPEN MEDICARE CONTACT SPECIALIST FIX ACETABULAR FX Left 09/04/2017 @OPEN TREATMENT, ACETABULAR FX (WRVU 25.41) performed by Amy Lance MD at [facility] MAIN OR Social History: Social History Socioeconomic History Marital status: Single Spouse name: Not on file Number of children: Not on file Years of education: Not on file Highest education level: Not on file Occupational History Not on file Tobacco Use Smoking status: Never Smokeless tobacco: Never Vaping Use Vaping status: Never Used Substance and Sexual Activity Alcohol use: No Drug use: No Sexual activity: Not on file Other Topics Concern Not on file Social History [place]ative [place] [facility] [place]. Social Determinants of Health Financial Resource Strain: Not on file Food Insecurity: No Food Insecurity (2024) Hunger Vital Sign Worried About Running Out of Food in the Last Year: Never true Ran Out of Food in the Last Year: Never true Transportation Needs: No Transportation Needs (2024) PRAPARE - Transportation Lack of Transportation (Medical): No Lack of Transportation (Non-Medical): No Physical Activity: Not on file Intimate Partner Violence: Unknown (06/14/2024) IPV Inpatient Questions Prevent Contact with Others: Not on file Feels Threatened by Someone: Not on file Feels Unsafe at Home: unable to answer (comment required) Physical Signs of Abuse Present: Not on file Housing Stability: Low Risk (2024) Housing Stability Vital Sign Unable to Pay for Housing in the Last Year: No Number of Times Moved in the Last Year: 0 Homeless in the Last Year: No Family History: No family history on file. Allergies: Allergies Allergen Reactions Lopid [Gemfibrozil] Medications: Medications Prior to Admission Medication Sig Dispense Refill Last Dose baclofen (LIORESAL) 20 mg Tablet Unknown cetirizine (ZyrTEC) 10 mg Tablet Unknown hydrOXYzine (Atarax) 25 mg Tablet Unknown montelukast (Singulair) 10 mg Tablet Unknown Magnesium Gluconate 27 mg magnesium (500 mg) Tablet Unknown mupirocin (Bactroban) 2 % Ointment Unknown pyridoxine, Vitamin B6, (Vitamin B6) 50 mg Tablet Unknown menthol/camphor (BIOFREEZE-ILEX TOP) Apply topically. Unknown ferrous gluconate 324 mg (37.5 mg iron) Tablet Take 324 mg by mouth daily. Unknown acetaminophen (TYLENOL) 325 mg Tablet Take 2 tablets by mouth every 6 hours as needed for Pain. 30 tablet 1 Unknown aspirin 81 mg Tablet, Chewable Take 81 mg by mouth daily. 30 tablet 3 Unknown atorvastatin (LIPITOR) 40 mg Tablet Take 1 tablet by mouth every evening. 90 tablet 3 Unknown calcium carbonate (TUMS) 200 mg calcium (500 mg) Tablet, Chewable Take 1 tablet by mouth nightly. 30 tablet 3 Unknown cholecalciferol, Vitamin D3, 1,000 unit Tablet Take 1 tablet by mouth daily. 90 tablet 3 Unknown desmopressin (DDAVP) 0.1 mg Tablet Take 1 tablet by mouth every morning. 30 tablet 3 Unknown desmopressin (DDAVP) 0.1 mg Tablet Take 1.5 tablets by mouth nightly. 30 tablet 3 Unknown hydrocortisone (CORTEF) 20 mg Tablet Take 1 tablet by mouth every morning. 30 tablet 3 Unknown hydrocortisone (CORTEF) 10 mg Tablet Take 1 tablet by mouth Daily at Noon. 30 tablet 3 Unknown levothyroxine (SYNTHROID) 75 mcg Tablet Take 3 tablets by mouth every morning. 90 tablet 3 Unknown melatonin 3 mg Tablet Take 3 tablets by mouth nightly. 90 tablet 3 Unknown methyl salicylate-menthol (BENGAY) 15-10 % Cream Apply 1 Application topically 2 times daily. 30 g 0 Unknown metoprolol succinate (TOPROL-XL) 25 mg Tablet Sustained Release 24 hr Take 3 tablets by mouth daily. (Patient not taking: Reported on 11/01/2021) 30 tablet 12 Unknown omeprazole (PRILOSEC) 40 mg Capsule, Delayed Release(E.C.) Take 1 capsule by mouth daily. 30 capsule 3 Unknown polyethylene glycol (MIRALAX) 17 gram Powder in Packet Take 17 g by mouth daily as needed (If not bowel movement in last 24 hours.). 14 each 0 Unknown QUEtiapine (SEROQUEL) 50 mg Tablet Take 5 tablets by mouth nightly. 30 tablet 3 Unknown senna-docusate (PERICOLACE) 8.6-50 mg Tablet Take 2 tablets by mouth 2 times daily. 60 tablet 11 Unknown traZODone (DESYREL) 50 mg Tablet Take 1 tablet by mouth nightly. 90 tablet 3 Unknown zonisamide (ZONEGRAN) 100 mg Capsule Take 2 capsules by mouth nightly. 30 capsule 3 Unknown QUEtiapine (SEROQUEL) 50 mg Tablet Take 1 tablet by mouth 2 times daily as needed. 60 tablet 3 Unknown Diaper,Brief, Adult,Disposable Misc Daily 24/ as needed for incontinence 90 each 3 Unknown PHYSICAL EXAM: Last value Range last 24 hrs Temperature Temp: 36 ??C (96.8 ??F) Temp: [35.4 ??C (95.7 ??F)-36 ??C (96.8 ??F)] Heart Rate Heart Rate: 67 Heart Rate: [56-91] Blood Pressure BP: 125/63 BP: (91-125)/(56-80) Respiratory Rate Resp: 12 Resp: [11-22] SpO2 SpO2: 100 % SpO2: [96 %-100 %] I/O last 3 completed shifts: In: 177 [P.O.:1170; I.V.:608] Out: 1874 [Urine:1874] Gen: Alert & oriented x3, NAD, well nourished HEENT: Eyes: PERRLA, EOMI, no conjunctival injection, no icterus Neck: No JVD Supple, no thyromegaly/nodules, no Submandibular LAD Throat: no lip/tongue lesions,MMM, oropharynx clear of edema/erythema/exudate/lesions CV: Regular rate and rhythm, no murmurs/rubs/gallops, 2+ radial/DP pulses; Pulm: Normal respiratory effort, CTA with good air entery bilaterally, no rales/rhonchi/wheezes Abd: Non-distended, normal active bowel sounds, soft, NT, ND, no masses, no guarding Ext: No pedal edema Neuro: L-sided weakness (chronic), cortical blindness (chronic) Skin: Warm, dry, no rashes Lymph: no cervical/supraclavicular/axillary lympha LABS: Recent Labs 06/16/24 0009 06/15/24 0006 06/14/24 0527 WBC 7.71 6.30 8.68 HGB 11.7* 11.9* 12.5* HCT 33.8* 34.2* 35.8* PLATELET 241 269 284 Recent Labs 06/16/24 0600 06/16/24 0009 06/15/24 1758 06/15/24 0554 06/15/24 0006 06/14/24 0806 06/14/24 0527 NA 131* 131* 129* < > 128* < > 124* K -- 3.9 -- -- 4.1 -- 4.0 CL -- 99 -- -- 97* -- 93* CO2 -- 22 -- -- 19* -- 19* BUN -- 12 -- -- 14 -- 14 CREATININE -- 0.92 -- -- 0.74* -- 0.76* < > = values in this interval not displayed. Recent Labs 06/16/24 0009 06/15/24 0006 06/14/24 0527 CALCIUM 8.3* 8.1* 7.9* MAGNESIUM 0.85 0.79 0.83 PHOS 3.2 2.8 2.8 No results for input(s): PT, PTT, FIBRINOGEN, DDIMER in the last 168 hours. Invalid input(s): THROMBIN TIME No results for input(s): INR in the last 168 hours. No results for input(s): AST, ALT, ALKPHOS, BILITOT, BILIDIR in the last 168 hours. No results for input(s): CK, TROPONINT in the last 168 hours. No results for input(s): LDH, URICACID in the last 168 hours. No results for input(s): TSH in the last 7068 hours. No results for input(s): HA1C in the last 7068 hours. Lab Results Component Value Date CHLPL 273 03/01/2018 HDL 13 03/01/2018 CHOLHDL 21.0 03/01/2018 TRIG 2,210 03/01/2018 LDLCHOL Not Calculated 03/01/2018 LDLDIRECT 31 03/01/2018 Imaging/Diagnostics: Results for orders placed or performed during the hospital encounter of 06/14/24 XR Chest One View (Exam End: 06/14/2024 4:02 AM) Result Value WORKSTATION ID [id number] Narrative EXAMINATION: XR CHEST ONE VIEW CLINICAL HISTORY: seizure, recent covid, r/o infection TECHNIQUE: 1 view of the chest COMPARISON: September 14, 2017 FINDINGS: Low lung volumes. Crowding of bronchovascular markings. No consolidation. No radiographically evident pneumothorax or pleural effusion. Allowing for patient position and technique, cardiac and mediastinal contours are within normal limits. No displaced rib fracture. Impression Low lung volumes with crowding of bronchovascular markings without radiographically evident acute cardiopulmonary process. Thank you for letting us participate in the care of this patient. If you are a health care provider and have any questions regarding this report, please contact the number below. For patients who have questions please contact the health child day care teacher that requested your imaging first. Electronically signed by: Beverley Valencia MD, [facility] ([phone]), at 06/14/2024 4:32 AM Request For 2nd Read CT Head (Exam End: 06/14/2024 9:46 AM) Result Value WORKSTATION ID [id number] Narrative EXAMINATION: REQUEST FOR 2ND READ CT HEAD CLINICAL HISTORY: New seizure with known mass, ?enlargening. Presenting with seizure; Sending Institution [facility]; Date of exam [id number]; I believe a reinterpretation of this exam may alter care of Patient. Yes TECHNIQUE: Reinterpretation of noncontrast CT head performed at [facility] 06/13/2024 at 2143 hours COMPARISON: Noncontrast [...] the paranasal sinuses. No acute calvarial abnormality. Impression Hypoattenuating, 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 Recommend dedicated MRI brain with and without contrast for further characterization. Thank you for letting us participate in the care of this patient. If you are a health care provider and have any questions regarding this report, please contact the number below. For patients who have questions please contact the health child day care teacher that requested your imaging first. Brain wwo Contrast (Generic) (Exam End: 2024 4:20 PM) Result Value WORKSTATION ID [id number] Narrative EXAMINATION: MRI BRAIN WWO CONTRAST (GENERIC) CLINICAL [...] clip with its blades near the right JAILER CHIEF. Impression Homogeneously enhancing 3.5 cm mass along the cisternal right 5th cranial nerve and extending into Meckel's cave. This most likely represents a schwannoma. Differential considerations could include meningioma, though this is felt to be less likely. Thank you for letting us participate in the care of this patient. If you are a health care provider and have any questions regarding this report, please contact the number below. For patients who have questions please contact the health child day care teacher that requested your imaging first. Electronically signed by: Raudel Heredia MD, [facility] ([phone]), at 2024 4:46 PM ASSESSMENT and PLAN: Abram Burgos is a 34 y.o. male with PMH significant for TBI, craniopharyngioma (resected 2004, c/b panhypopituitarism), Diabetes insipidus (on DDAVP at baseline), hypothyroidism, Adrenal insufficiency (hydrocortisone 20mg AM and 10mg PM), epilepsy, legally blind, who presents to the ICU on 06/14/24 with seizures. Abram appears stable today and appropriate for downgrade to stepdown. His sodium increased to 135 today (initial value was 139 but recheck was 135), which is within the target range for. Endocrine isfollowing. Continuing regimen for panhypopituitarism. Checked home meds and added pyridoxine as well as a bowel regimen as he is on several laxatives at home and has not had a BM here so far. 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, cortical blindness, seizure disorder Zonisamide 400 mg QHS ASA 81 mg daily Atorvastatin 40 mg daily Baclofen 20 mg TID Lorazepam 2 mg q4h prn for seizure #Asthma Montelukast 10 mg daily #GERD Pantoprazole 40 mg daily #Acute toxic metabolic encephalopathy #Home meds Melatonin 9 mg QHS Trazodone 100 mg QHS Quetiapine 100 mg BID Quetiapine BID prn for agitation Prazosin 2 mg QHS Resume home pyridoxine 50 mg daily #Hx constipation Miralax daily Bowel regimen prn #3.5 cm Right middle cranial fossa mass, uncertain etiology schwannoma vs meningioma Outpatient neurosurgery followup #Housekeeping: - DVT PPx: Heparin - GI PPx: Pantoprazole - Diet: Regular diet - Level of care: Stepdown - Vitals: q4h Discussed Advanced Directives and Code Status. The patient wishes to be Attempt Cardiopulmonary Resuscitation - Inpatient. Tim Yuen MD Internal Medicine PGY-2 Pager: [phone] 06/16/24 Associated attestation - Channing Ballesteros MD - 06/16/2024 3:58 PM EST Attending Staff Admission Documentation I have examined the patient myself on 06/16/2024 and reviewed all labs and studies personally. Please see Dr. Yuen's documentation for details of the patient history of presentation and data. I have discussed, reviewed and agree with the documented history with ROS, physical findings, labs/studies, assessment and plan of care. 34-year-old man with history of TBI, cranial meningioma s/p resection complicated by panhypopituitarism on chronic levothyroxine, hydrocortisone and DDAVP, epilepsy, legal blindness who presents in transfer from an outside hospital with seizures and hyponatremia. Patient was admitted to the medical intensive care unit and was managed with hypertonic saline and close monitoring of serum sodium levels. Endocrinology was consulted and patient was continued on home DDAVP dosing as well as a 2 L fluid restriction. Sodium level has improved to 131 as of this morning and 139 this afternoon. Neurology has been consulted for management of seizures and likely culprit is hyponatremia which now has been corrected. Patient has been stable on zonisamide without seizures for years. EEG monitoring did not show any active evidence for epileptiform discharges. Patient did have an MRI brain whichdid show a right middle cranial fossa mass consistent with a possible schwannoma for which neurosurgery was consulted. At this time, no acute neurosurgical intervention is warranted. They will follow-up as outpatient for further discussions with family/guardian to discuss management options. Will repeat serum sodium level now to ensure that the increased to 139 is consistent. Will liberalize fluid restriction to 3L and discussed with him about possibly starting dextrose fluids to reduce the rate of correction. Patient is alert and able to answer questions. Continue levothyroxine and hydrocortisone home dosing Channing Ballesteros MD * Minerva Small PA - 06/13/2024 11:12 PM EST Critical Care Admission Note Abram Burgos is a 33 y.o. male with a PMH significant for TBI, craniopharyngioma (resected 2004, c/b panhypopituitarism), Diabetes insipidus (on DDAVP at baseline), hypothyroidism, Adrenal insufficiency (hydrocortisone 20mg AM and 10mg PM), epilepsy, legally blind, who presents to the ICU on with seizures. HPI: Per report presented to [facility] from a shelter ([facility]) for seizure. He has been in his usual state of health although did have covid within the past month. He has been taking his medications as prescribed although due to behavioral troubles and problems sleeping some of his medications have been altered recently. This afternoon at his shelter he had a two minute whitnesses tonic clonic seizure and was brought to the ED via EMS. He hasnot had a seizure in some time. In the ED he had returned to baseline and then had another 30 second tonic clonic seizure for which he got 2mg ativan. He was hemodynamically stable, protecting his airway and oxygenating well on room air. Pertinent ED workup: WBC 6.6 Na 121 (typically in high 140s) --> 122 on recheck K 4.2 Cl 86 BUN 15 Cr 1.1 Urine specific gravity <1.005 CTH: large hypoattenuating mass in the right middle cranial fossa which was seen on imaging in September 2023 but appears larger and is concerning for enlarging neoplasm. He also also stable encephalomalacia Interventions that the pt received at [facility] included 150cc 3% NaCl, 100mg of hydrocortisone and a dose (unknown amount) of desmopressin. [facility] was contacted for transfer. Neuro critical care declined admission and deferred to medicine and ultimately the pt was accepted to the MICU for further care. On arrival to the MICU, the pt will answer questions with yes and no which is reportedly his baseline. His vitals are stable. ROS: .Review of Systems - Denies pain, dyspnea Last value Range last 24 hrs Temperature Temp: 36.5 ??C (97.7 ??F) Temp: [36.5 ??C (97.7 ??F)] Heart Rate Heart Rate: 89 Heart Rate: [84-89] Blood Pressure BP: 122/80 BP: (111-132)/(80-120) Respiratory Rate Resp: 14 Resp: [14-19] SpO2 SpO2: 96 % SpO2: [95 %-98 %] Art BP BP (Arterial Line): -- No past medical history on file. Past Surgical History: Procedure Laterality Date PRO OPEN MEDICARE CONTACT SPECIALIST FIX ACETABULAR FX Left 09/04/2017 @OPEN TREATMENT, ACETABULAR FX (WRVU 25.41) performed by Amy Lance MD at [facility] MAIN OR No family history on file. Social History: Lives in a shelter. Ventilator Settings: Room air. Physical Exam: General: Male breathing comfortably on room air. HEENT: no scleral icterus. Irregularly shaped skull. Neuro: PERRL. Able to follow basic commands and state yes/no to questions. Pulmonary: CTA BL. Cardiovascular: RRR. No M/G/R Abdomen: Soft, nontentder. : No morse Extremities: No lower or upper extremity edema. Skin: Warm and dry Labs: Last 3 wbc, hgb, hct plt Recent Labs 06/14/24 0103 WBC 10.38* HGB 12.2* HCT 35.5* PLATELET 276 Last 3 Lytes Recent Labs 06/14/24 0103 NA 123* K 3.7 CL 91* CO2 19* BUN 14 CREATININE 0.80 Last Ca, Mg, Phos Recent Labs 06/14/24 0103 CALCIUM 8.1* PHOS 1.5* MAGNESIUM 0.90 EKG: normal EKG, normal sinus rhythm. No results found for this visit on 06/14/24. Assessment: Mr. Burgos is a 33 y/o M with panhypopituitarism and epilepsy who presents to the MICU with hyponatremia and seizures. Will perform hyponatremia workup with osmolality and urine studies and send a Zonisamide level. His panhypopituitarism certainly complicates his reasons for hyponatremia and we should consult endocrinology in the morning for recommendations and guidance on medication changes moving forward. His specific gravity was low at the OSH which would suggest his kidneys are expelling water, however, due to the fact that he is on DDAVP at baseline, he should be retaining water. Appears euvolemic on exam without any noted changes in diet or water intake over the past few days. For now, we will continue his current hydrocortisone and DDAVP prescriptions and shoot to replete Na by 6 mMol/L in 24 hours. Plan: Neuro: seizures, history of epilepsy Check Zonisamide level Consider MRI brain for further evaluation of lesion seen on CTH. Per family pt has required anesthesia for this in the past. Continue home ASA, Baclofen, seroquel, Zonisamide Hold home Ramelteon Consult Neurology Pulm: JUSTIN SpO2 >92% CV: MAP goal >65 Baseline EKG Continue home atorvastatin GI: Bowel regiment Continue home PPI Renal/FEK: hyponatremia Goal Na over the next 24 hours is 127 from the time of arrival to [facility] Should attempt 6mMol/L increase in Na every 24 hours until normalized q2h Na checks Serum and urine osmolality Urine lytes Daily BMP/ Mag/ Phos Hematology: Daily CBC w/ diff SQH for ppx ID: No acute concern for infection Recent covid infection Endocrine: Panhypopituitarism Endocrinology consult in the morning Continue home synthroid 200mcg daily Continue home DDAVP dose 100mcg in AM and 150 mcg in PM Continue home hydrocortisone 20mg AM and 10mg PM Other prophylaxis: SQH for DVT prophylaxis PPI for GI prophylaxis HOB > 30 Chlorhexidine mouth care Mepliex to sacrum PT/OT Patient Lines/Drains/Airways Status Active Tubes/Lines/Drains Name Placement date Placement time Site Days PIV 06/14/24 0110 18 gauge median cubital vein (antecubital fossa), right 06/14/24 0110 -- less than 1 Consults: Endocrinology and neurology. Decision Making: GuardianBettina Code Status: Full IS PATIENT CRITICALLY ILL ? Is there a high potential of sudden, clinically significant, or life threatening deterioration? Yes Is there a need for direct personal assessment and management to treat/prevent multiple vital organfailure/deterioration? Yes PATIENT IS CRITICALLY ILL WITH THESE DIAGNOSES BEING MANAGED BY CCS TEAM: Hyponatremia I personally performed 60 of aggregate critical care time exclusive of procedures and teaching between 000 to 0230. This includes time spent during direct patient evaluation and reassessment, interpreting diagnostic tests, directing life and/or organ supporting interventions and documentation on the unit. NAKIA Blair June 14, 2024 Critical Care [place] Team (pager [phone]) Dr. Alfred is the attending of record for this admission documented in this encounter Procedure Notes * Camron Gee MD - 2024 5:19 PM ESTProcedure(s): EEG CONTINUOUS MONITORING INPATIENT [facility] Department of Neurology Inpatient Continuous Video EEG Tail Report Name of the Patient: Abram Burgos Date of : 1990 [facility] Date of Service: 2024 Referring physician: Marline Calderon Fellow: MD Gladys Walden Attending: Camron Gee MD Initial time and date cEEG monitoring started: 14:49:14 on 06/14/2024 Daily report EEG start time: 05:00 2024 Daily report EEG end time: 17:07 2024 Total recording time: ~12 hours, 3 minutes (break in recording) Indication for cvEEG: Seizure and Epilepsy BRIEF HISTORY: Abram Burgos is a 34 y.o. male with seizure in the setting of hyponatremia. He has been on stabledoses of DDAVP and other medications for dutta hypopituitarism. MEDICATIONS: - zonisimide 400mg qhs PRIOR EEG(s): None prior to this admission METHODS: A 21 channel digitized continuous electroencephalogram with video was set up and recording started at 14:49:14 on 06/14/2024. Following explanation of the procedure, the 10/20 international system of electrode placement was used to determine electrode placement and disposable MRI conditional electrodes were applied using the paste/collodion method of application. In addition to EEG the patient wasmonitored for EKG. Video was recorded during the session. SEWING MACHINE TESTER'S REPORT: Performed by: At the onset of the recording the patient was asleep and obtunded. Movement and other artifact was not significant. Comments:None ELECTROENCEPHALOGRAPHER'S REPORT Background: The background was continuous and consisted of generalized poorly-organized admixed polymorphic theta and delta frequency activity with admixed faster freqeuencies. No well-developed posterior dominant rhythm or anterior-posterior gradient was identified. Reactivity was present. Variability was present. Focal Asymmetries: Right hemispheric slowing was noted throughout recoding. Sleep: Stage changes and some sleep transients better formed over left hemisphere and central regions werenoted. Interictal Activity: There were no epileptiform discharges, rhythmic or periodic patterns. Patient Events or Seizures: No patient events or electrographic seizures were recorded. Provocative Maneuvers: Hyperventilation and photic stimulation were not performed. EKG: Single lead EKG with artifact. Technical Limitations: Off between 14:51 to 16:47 2024 INTERPRETATION: This 10 hours continuous EEG monitoring tail study is abnormal due to: Moderate generalized slowing of background 2. Right hemispheric slowing CLINICAL CORRELATION: The study is consistent with moderate encephalopathy of non specific to etiology. There is underlying right hemispheric structural or functional abnormality. No seizures or concerning patterns seen during this epoch. Rashard Navarrete MD FINANCIAL SYSTEMS MANAGER Fellow, PGY-5 2024 EPILEPSY ATTENDING ADDENDUM - I reviewed the EEG with the FINANCIAL SYSTEMS MANAGER/Epilepsy fellow, and I agree with the interpretation as documented. Camron Gee MD, PhD Professor of Neurology [facility] Epilepsy Center Clinical Neurophysiology Laboratory [facility] Rashard Castrejon MD - 06/14/2024 3:33 PM ESTAssociated Order(s): EEG CONTINUOUS MONITORING INPATIENT Preliminary continuous video EEG Note: 06/14/2024 - 3:33 PM Start Time: 14:49 Review of the first 45 minutes of this cEEG recording shows generalized slowing with superimposed rhemispheric slowing. No seizures seen during this time. Formal report will follow in the AM. Rashard Navarrete MD 06/14/2024 Rashard Castrejon MD - 06/14/2024 3:03 PM EST [facility] Department of Neurology Inpatient Continuous Video EEG Report Name of the Patient: Abram Burgos Date of : 1990 Patient Location: [facility] Date of Service: 06/14/2024 Referring physician: Marline Calderon Fellow: Rashard Navarrete MD Reading Attending: Camron Gee MD Initial time and date cEEG monitoring started: 14:49:14 on 06/14/2024 Daily report EEG start time: 14:49 06/14/2024 Daily report EEG end time: 05:00 2024 Total recording time: 13 hours, 11 minutes (one hour break in study) Indication for cvEEG: Seizure and Epilepsy BRIEF HISTORY: Abram Burgos is a 33 y.o. male with seizure in the setting of hyponatremia. He has been on stabledoses of DDAVP and other medications for dutta hypopituitarism. MEDICATIONS: - zonisimide 400mg qhs PRIOR EEG(s): None prior to this admission METHODS: A 21 channel digitized continuous electroencephalogram with video was set up and recording started at 14:49:14 on 06/14/2024. Following explanation of the procedure, the 10/20 international system of electrode placement was used to determine electrode placement and disposable MRI conditional electrodes were applied using the paste/collodion method of application. In addition to EEG the patient wasmonitored for EKG. Video was recorded during the session. SEWING MACHINE TESTER'S REPORT: Performed by: At the onset of the recording the patient was asleep and obtunded. Movement and other artifact was not significant. Comments:None ELECTROENCEPHALOGRAPHER'S REPORT Background: The background was continuous and consisted of generalized poorly-organized admixed polymorphic theta and delta frequency activity with admixed faster freqeuencies. No well-developed posterior dominant rhythm or anterior-posterior gradient was identified. Reactivity was present . Variability was present. Focal Asymmetries: Right hemispheric slowing was noted throughout recoding. Sleep: No well formed sleep architecture was noted. Interictal Activity: There were no epileptiform discharges, rhythmic or periodic patterns. Patient Events or Seizures: No patient events or electrographic seizures were recorded. Provocative Maneuvers: Hyperventilation and photic stimulation were not performed. EKG: Single lead EKG with artifact. Technical Limitations: Off between 17:05 to 18:05 06/14/2024 INTERPRETATION: This 14 hours + continuous EEG monitoring study is abnormal due to: Moderate generalized slowing of background 2. Right hemispheric slowing CLINICAL CORRELATION: The study is consistent with moderate encephalopathy of non specific to etiology. There is underlying right hemispheric structural or functional abnormality. No seizures or concerning patterns seen during this epoch. Rashard Navarrete MD FINANCIAL SYSTEMS MANAGER Fellow, PGY-5 06/14/2024 Associated attestation - Camron Gee MD - 2024 1:03 PM EST EPILEPSY ATTENDING ADDENDUM - I reviewed the EEG with the FINANCIAL SYSTEMS MANAGER/Epilepsy fellow, and I agree with the interpretation as documented. Given the lack of evidence for underlying epileptic seizures from this recording of ~24 hours, we'd recommend considering discontinuing the CEEG study. We are available to discuss this matter with the Neurology consultation and inpatient bravo team. Camron Gee MD, PhD Professor of Neurology [facility] Epilepsy Center Clinical Neurophysiology Laboratory [facility] documented in this encounter Miscellaneous Notes * Plan of Care - Bell Amezcua RN - 06/21/2024 3:04 PM EST Abram [facility]'s [facility] with staff from shelter. All belongings sent with patient. ALLISON removed, skin free from pressure ulcers. Discharge instructions, medications, and follow-up appointments reviewed, education provided on DI, hyponatremia. paper prescriptions given to patient, all questions answered. Patient instructed to call with concerns. * Care Management Discharge - Sudarshan Marie RN - 06/21/2024 2:18 PM EST CARE MANAGEMENT FINAL DISCHARGE NOTE Chart reviewed, care reviewed with primary team and at interdisciplinary rounds. Patient is medically ready for discharge to [address] [place] [address] '[id number] . Community Relations Director: Kemi Noriega at [facility] will be picking him up. I also spoke with Bettina Burgoshis Guardian to give her updates. Needs for Transition of Care: Plan for discharge is: Senior Living Facility / Swing Outpatient Agency/Support Group Needs: detention Agency Referrals & Follow-up Care: Transportation: Community Relations Director: Kemi Noriega at [facility] will be picking him up. I also spoke with Bettina Burgos his Guardian to give her updates Wheelchair van/Ambulance? No Functional status prior to admission: Assistive Equipment and Assistive Person Home Environment: Others in the home: other (see comments) (Lives in a shelter.). Current LivingArrangements: shelter. Accessibility Concerns:Easy access to his surroundings. Fully supported.. Current Functional Ability: Completely Dependent, Assistive Person and Equipment DME used at home: wheelchair - manual (utilizes wheelchair at times) DME Needed at Discharge: Patient is insured through: Primary Insurance: [place] Pay[place] / Plan[place] / Product Type: *No Product type* / Secondary Insurance: N/A Prescription Coverage: Yes This plan was formulated with input from patient, Community Relations Director: Kemi Noriega at [place] will be picking him up. I also spoke with Bettina Burgos his Guardian to give her updates and team Dr. Reynolds. All are in agreement with plan. Sudarshan Marie DRILL OPERATOR [employer] [facility] * Plan of Care - Erik Dumont RN - 06/20/2024 10:55 PM EST Problem: Fall Injury Risk Goal: Absence of Fall and Fall-Related Injury Outcome: Ongoing (Interventions Implemented as Appropriate) Problem: Adult Inpatient Plan of Care Goal: Plan of Care Review Outcome: Ongoing (Interventions Implemented as Appropriate) Goal: Patient-Specific Goal (Individualized) Outcome: Ongoing (Interventions Implemented as Appropriate) Goal: Absence of Hospital-Acquired Illness or Injury Outcome: Ongoing (Interventions Implemented as Appropriate) Goal: Optimal Comfort and Wellbeing Outcome: Ongoing (Interventions Implemented as Appropriate) Goal: Readiness for Transition of Care Outcome: Ongoing (Interventions Implemented as Appropriate) Problem: Seizure, Active Management Goal: Absence of Seizure/Seizure-Related Injury Outcome: Ongoing (Interventions Implemented as Appropriate) * Plan of Care - Bell Amezcua RN - 06/20/2024 4:55 PM EST OUTCOME EVALUATION NOTE: OUTCOME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 epilepsy, and blindness who was admitted to the Critical Care service for seizures and hyponatremia. Neurosurgery is consulted for a 3 cm hypodensity in the anterior right middle fossa. He lives at a shelter. This past weekend, he was in his normal state of health when he had a witnessed 2 minute seizure, reportedly with generalized stiffening. He was brought to [facility], where he was found to have Na of 121. He had a tongue laceration. In the ED there he had an additional witnessed seizure. He was transferred to the [facility]U for a higher level of care with Na 123 on arrival following 150 cc 3% saline. During workup, he was found to have a circular hypodensity in the medial right anterior middle fossa, reportedly with growth from imaging from 09/2023 although these images are not available for review in our system. This hypodensity does not appear to be present on the last available comparison CT head we have from 2019. He has been on a stable medication regimen of zonisamide for many years and rarely has seizures. The last seizure the family is aware of was around 2018. He has since recovered to his neurologic baseline per family. When he was 14 years old, he was found to have a large cystic mass during workup for left eye blindness. 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 Álvarez at [facility]. This was complicated by arterial bleeding with 2u PRBC transfused i ntraoperatively as well as transection of the pituitary stalk. An aneurysm clip was placed for hemostasis. 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 Patient seen and examined in the MICU. History per providers, chart review, and sister/DPOA Bettina. PAST MEDICAL HISTORY: No past medical history on file. PAST SURGICAL HISTORY: Past Surgical History: Procedure Laterality Date PRO OPEN MEDICARE CONTACT SPECIALIST FIX ACETABULAR FX Left 09/04/2017 @OPEN TREATMENT, ACETABULAR FX (WRVU 25.41) performed by Amy Lance MD at [facility] MAIN OR MEDICATIONS: No current facility-administered medications on file prior to encounter. Current Outpatient Medications on File Prior to Encounter Medication Sig Dispense Refill baclofen (LIORESAL) 20 mg Tablet cetirizine (ZyrTEC) 10 mg Tablet hydrOXYzine (Atarax) 25 mg Tablet montelukast (Singulair) 10 mg Tablet Magnesium Gluconate 27 mg magnesium (500 mg) Tablet mupirocin (Bactroban) 2 % Ointment pyridoxine, Vitamin B6, (Vitamin B6) 50 mg Tablet menthol/camphor (BIOFREEZE-ILEX TOP) Apply topically. ferrous gluconate 324 mg (37.5 mg iron) Tablet Take 324 mg by mouth daily. acetaminophen (TYLENOL) 325 mg Tablet Take 2 tablets by mouth every 6 hours as needed for Pain. 30 tablet 1 aspirin 81 mg Tablet, Chewable Take 81 mg by mouth daily. 30 tablet 3 atorvastatin (LIPITOR) 40 mg Tablet Take 1 tablet by mouth every evening. 90 tablet 3 calcium carbonate (TUMS) 200 mg calcium (500 mg) Tablet, Chewable Take 1 tablet by mouth nightly. 30 tablet 3 cholecalciferol, Vitamin D3, 1,000 unit Tablet Take 1 tablet by mouth daily. 90 tablet 3 desmopressin (DDAVP) 0.1 mg Tablet Take 1 tablet by mouth every morning. 30 tablet 3 desmopressin (DDAVP) 0.1 mg Tablet Take 1.5 tablets by mouth nightly. 30 tablet 3 hydrocortisone (CORTEF) 20 mg Tablet Take 1 tablet by mouth every morning. 30 tablet 3 hydrocortisone (CORTEF) 10 mg Tablet Take 1 tablet by mouth Daily at Noon. 30 tablet 3 levothyroxine (SYNTHROID) 75 mcg Tablet Take 3 tablets by mouth every morning. 90 tablet 3 melatonin 3 mg Tablet Take 3 tablets by mouth nightly. 90 tablet 3 methyl salicylate-menthol (BENGAY) 15-10 % Cream Apply 1 Application topically 2 times daily. 30 g 0 metoprolol succinate (TOPROL-XL) 25 mg Tablet Sustained Release 24 hr Take 3 tablets by mouth daily. (Patient not taking: Reported on 11/01/2021) 30 tablet 12 omeprazole (PRILOSEC) 40 mg Capsule, Delayed Release(E.C.) Take 1 capsule by mouth daily. 30 capsule 3 polyethylene glycol (MIRALAX) 17 gram Powder in Packet Take 17 g by mouth daily as needed (If not bowel movement in last 24 hours.). 14 each 0 QUEtiapine (SEROQUEL) 50 mg Tablet Take 5 tablets by mouth nightly. 30 tablet 3 senna-docusate (PERICOLACE) 8.6-50 mg Tablet Take 2 tablets by mouth 2 times daily. 60 tablet 11 traZODone (DESYREL) 50 mg Tablet Take 1 tablet by mouth nightly. 90 tablet 3 zonisamide (ZONEGRAN) 100 mg Capsule Take 2 capsules by mouth nightly. 30 capsule 3 QUEtiapine (SEROQUEL) 50 mg Tablet Take 1 tablet by mouth 2 times daily as needed. 60 tablet 3 Diaper,Brief, Adult,Disposable Misc Daily 27/01 as needed for incontinence 90 each 3 ALLERGIES: Allergies Allergen Reactions Lopid [Gemfibrozil] SOCIAL HISTORY: Social History Socioeconomic History Marital status: Single Spouse name: Not on file Number of children: Not on file Years of education: Not on file Highest education level: Not on file Occupational History Not on file Tobacco Use Smoking status: Never Smokeless tobacco: Never Vaping Use Vaping status: Never Used Substance and Sexual Activity Alcohol use: No Drug use: No Sexual activity: Not on file Other Topics Concern Not on file Social History Narrative [place] [facility] [place]. Social Determinants of Health Financial Resource Strain: Not on file Food Insecurity: Not on file Transportation Needs: Not on file Physical Activity: Not on file Intimate Partner Violence: Unknown (06/14/2024) DH IPV Inpatient Questions Prevent Contact with Others: Not on file Feels Threatened by Someone: Not on file Feels Unsafe at Home: unable to answer (comment required) Physical Signs of Abuse Present: Not on file Housing Stability: Not on file FAMILY HISTORY: No family history on file. REVIEW OF SYSTEMS: Unable to obtain due to patient condition. VITAL SIGNS: Visit Vitals BP 91/61 Pulse 66 Temp 36.6 ??C (97.9 ??F) (Oral) Resp 13 Ht 178 cm (5' 10.08) Wt 98.8 kg (217 lb 13 oz) SpO2 94% BMI 31.18 kg/m?? PHYSICAL EXAM: General: laying in hospital bed in no acute distress, on 0.2 of precedex. Obese. HEENT: Anterior/right lateral tongue laceration. EEG leads in place. Pulmonary: Nonlabored breathing on RA Neuro Exam: Asleep, wakes to voice. Sedated on 0.2 precedex. Slowly answers yes/no questions. Face symmetric. PERRL, eyes opened with assistance, rolled upwards. TML. Follows commands x4 to thumbs up, lift arms, move feet. Sensation grossly intact to light touch x4 LABS: CBC: Lab Results Component Value Date/Time WBC 8.68 06/14/2024 05:27 AM WBC 5.4 03/01/2018 08:35 AM HGB 12.5 (L) 06/14/2024 05:27 AM HGB 11.9 (L) 03/01/2018 08:35 AM PLATELET 284 06/14/2024 05:27 AM PLATELET 272 03/01/2018 08:35 AM BMP: Lab Results Component Value Date/Time NA 126 (L) 06/14/2024 02:15 PM NA 138 07/15/2018 12:49 PM K 4.0 06/14/2024 05:27 AM K 3.9 07/15/2018 12:49 PM CL 93 (L) 06/14/2024 05:27 AM CL 104 07/15/2018 12:49 PM CO2 19 (L) 06/14/2024 05:27 AM CO2 19 (L) 07/15/2018 12:49 PM BUN 14 06/14/2024 05:27 AM BUN 16 07/15/2018 12:49 PM CREATININE 0.76 (L) 06/14/2024 05:27 AM CREATININE 0.83 07/15/2018 12:49 PM Coags: No results found for: INR, PT, PTT IMAGINnd read CT, 06/14 IMPRESSION Hypoattenuating, 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 Recommend dedicated MRI brain with and without contrast for further characterization. Imaging independently reviewed and reviewed with radiology. ASSESSMENT: This is a 33 y.o. male, not on any antiplatelet or anticoagulation therapy, with a history notable for craniopharyngioma resection c/b panhypopituitarism, bilateral thalamic strokes, blindness, and epilepsy who is admitted to the MICU for seizures and hyponatremia. Per family, he is at his neurologic baseline. CT head revealed a circular hypodensity in the medial right anterior aspectof the middle cranial fossa of unclear etiology. This could be due to imaging artifact from the nearby surgical clip or may represent new or recurrent pathology, none of which is likely to need intervention in the inpatient setting. We will follow for when MRI imaging is obtained. PLAN / RECOMMENDATIONS: - No acute neurosurgical intervention indicated - Q4 hour neuro checks - DVT prophylaxis per primary team - Agree with involvement of Neurology and Endocrinology teams - Imaging plan: MRI wwo when able - Appreciate rest of excellent care per MICU X Consult service will continue to follow patient. We are signing off. Recommendations above. Please page if further consultation is required. Case discussed with Dr. Nieto, PGY-7, neurosurgery chief resident and Dr. Cardenas, neurosurgery resident Case has been discussed with Dr. Barriga, neurosurgery attending. No future appointments. Neurosurgery Pager: [phone] Gonzalez Kirkpatrick MD Neurosurgery PGY-1 06/14/2024 6:44 PM Clinical Documentation Improvement: Active Hospital Problems Diagnosis Hyponatremia Resolved Hospital Problems No resolved problems to display. * Initial Assessments - Dinorah Navas OT - 06/14/2024 11:19 AM EST Occupational Therapy Evaluation Patient profile: Abram Burgos is a 33 y.o. male admitted on 06/14/2024 with a PMH significant for TBI, craniopharyngioma (resected 2004, c/b panhypopituitarism), Diabetes insipidus (on DDAVP at baseline), hypothyroidism, Adrenal insufficiency (hydrocortisone 20mg AM and 10mg PM), epilepsy, legally blind, who presents to the ICU on 06/14/24 with seizures. No past medical history on file. Past Surgical History: Procedure Laterality Date PRO OPEN MEDICARE CONTACT SPECIALIST FIX ACETABULAR FX Left 09/04/2017 @OPEN TREATMENT, ACETABULAR FX (WRVU 25.41) performed by Amy Lance MD at [facility] MAIN OR Social History: Patient lives in a shelter. Home Setup: accessible DME: none Baseline ADL/Mobility: assistance from staff. Devices removed 2/2 safety concerns (had white cane but removed). Sister also assists as able. Precautions/Special Considerations: Full code. Risk for falls. Seizures. Risk for delirium. Prior TBI. Staff Recommendations/Things to know (prior admission and may need some continued update from sister): Obtain a radio for Pt's room, as he loves country music. Keep carrots and celery in the refrigerator, as it's a good distraction for him. He uses chewing as a coping mechanism. Gum also could be provided with supervision. He likes knock knock jokes. He usually just wears depends and jeans around his home. He likes to rip things and sometimes rips shirts off. Subjective: Why? Objective: Seen today for OT evaluation. Cognitive Status/Behavior: Behavior / Mood: alert, cooperative, confused, and impaired task initiation Alert and oriented to: person Follows commands: 1 step, initiation impaired, requires increased time/delayed response, requires repetition of directions/verbal cueing, and requires tactile cueing Attention: difficulty attending to task / directions and requires cues to redirect Safety awareness: decreased insight into deficits and impulsive Likely at or close to baseline Baseline TBI Vision & Perception: legally blind Communication: gestures and garbled , likely baseline Range of motion, strength, coordination: Hand dominance: right Bilateral UEs are functional, strong LE limitations: functional with assistance for mobility Sensation: no acute impairments noted, will continue to assess Activities of Daily Living: Self-feeding: supervision Grooming: demonstrates need for assistance, likely at baseline Dressing: Min-Mod A Bathing: demonstrates need for assistance Toileting: Transfer: CGA x2 with handhold Hygiene: supervision Functional Mobility: Supine to sit: CGA Sit to stand: CGA x2 handhold Ambulation: [facility] x2 handhold for [id number] transfer EOB<>commode Stand to sit: CGA Sit to supine: independent Assisted with sister who is very helpful and pt appreciates Balance: Sitting balance: supervision Standing balance: CGA with handhold Vitals: HR 83 SpO2 96% BP 123/70 Pain: no complaints Skin: PIV Education: family and patient have been educated on Role of occupational therapy/rehabilitation, Transfers, ADL, Exercise, Positioning, Safety, Functional Mobility, Balance, Recommendations, Family training, and Discharge planning and verbalizes understanding. Patient status, treatment, and mobility recommendations discussed with nursing. Assessment: Pt has been seen for occupational therapy evaluation. Abram Burgos presents with the following performance skill deficits and client factors: decreased activity tolerance, visual deficits, cognitive deficits, communication deficits, compromised mobility status, coping, and skin integrity. These performance deficits have led to activity limitations and participation restrictions in the following areas of occupation: dressing, bathing, grooming, toileting, self-feeding, transfers / mobility, rest / sleep, leisure, driving, community mobility, communication, and social participating. Abram demonstrates decreased participate with ADLs and functional mobility. Anticipate that pt will return home with assistance once medically ready. However, pt would benefit from further inpatient OT interventions to address performance deficits and maximize participation and independence with occupations of daily living. Equipment needs at discharge: to be determined Anticipated Discharge Dispostion: adult foster care/shelter (pending on progress) Other Recommendations: Open shades and turn on lights during the day/lights off at night, Set-up patient with ADL tasks, allow patient to complete ADL tasks as independently as possible Assist patient to the toilet (no bed dutta) Provide choices as able, encourage safe coping skills (such as music, reading, coloring, word search, journaling) Have patient sit up in recliner, sit EOB, or bed in chair position during the day as much as possible Sit upright for all meals Ambulate as tolerated Other Recommendations: No other consults recommended at this time. Goals: To be achieved by 06/28/24. Patient will complete sink level ADLs with supervision and least restrictive assistive device. Patient will participate in LB dressing with Min A and least restrictive assistive device. Patient will transfer to the toilet with CGA of one person safely. Patient will complete jenise-care and clothing management with SBA and least restrictive assistive device. Spouse and/or family will demonstrate and state safe techniques to assist and care for the patient and limit harm to themself. Plan: OT: Therapy Frequency (OT): 1-2 more times Planned OT interventions: Role of occupational therapy/rehabilitation, Transfers, Assistive device/technique, Adaptive equipment training, ADL, Exercise, Breathing exercises, Positioning, Safety, Precautions/Protocol, Functional Mobility, Activity pacing/Energy conservation, Home Program, Home Management, Balance, Recommendations, Family training, and Discharge planning. Total Minutes, Occupational Therapy: 16 ([id number] (evaluation)) 2017 OT Evaluation Code Rationale: Diagnosis & Pertinent Co-Morbidities affecting Plan of Care: see PMHx Occupational Profile & Client History: Brief Expanded Extensive X Assessment of Occupational Performance: 1-3 performance deficits 3-5 performance deficits XX 5 + performance deficits Clinical Decision Making: Low Moderate High X Clinical decision making of low complexity using standardized patient assessment instrument and measurable assessment of functional outcome. Pager: [phone] Dinorah Navas OTR/L 06/14/2024 Occupational Therapy Rehabilitation Department * Consult Note - Shola Morris MD - 06/14/2024 10:39 AM EST Images from the original note were not included. Endocrinology Consult Note Name: Abram Burgos : 1990 Date: 06/14/24 Reason for Consult: panhypopituitarism HPI: Abram Burgos is a 33 y.o. male with a PMH significant for TBI, craniopharyngioma s/p resected 2004, c/b panhypopituitarism with central hypothyroidism, secondary adrenal insufficiency, and diabetesinsipidus, epilepsy, legally blind and osteopenia who presents to the ICU on 06/14/24 for managementof seizure and hyponatremia. Endocrinology was consulted given his history of panhypopituitarism, DI and hyponatremia. History taken from patient at bedside from his sister and legal guardian, Bettina, as well as chart review. He follows with Dr. Zaidi of Endocrinology at [facility]. Recently saw a covering provider, Day Littlejohn in March 2024. He currently resides in a shelter, [facility] where nurses and medical assistants provide care, monitor volume intake and his medications. He has been on thesame doses of his medication including levothyroxine, hydrocortisone and DDAVP for years. Typically, when he is ill or has any changes to his level of alertness, there is an issue with his sodium. Sodium was last checked about one month ago and Bettina does not believe it was abnormal as someone would have notified her. She believes there has been no changes to his medications particularly the DDAVP as it is pre-packed for the month and not given from the bottle. It is recommended he be on a fluid restriction of which care givers are required to monitor his volume intake. Abram will consume any liquid that is close to him and this needs to be monitored. In the past, his fluid restriction needed to be adjusted in the summer and the winter as he would sweat less in the winter months. Previously was getting his sodium checked monthly but this was stopped as sodium was routinely normal. He had COVID infection in March-April. He has been struggling with his sleep patterns at his living facility in which they have been making adjustments to his medications. Spoke to patients nurse regarding home regimen of DDAVP and fluid restriction. He is on a 3.5 L fluid restriction at the facility. This is measured out by staff prior to eat meal and snack throughoutthe day. He has a caregiver with him at all times and the nurse denied there be a chance of having access to or getting extra fluids throughout the day. Review of Systems ROS negative except above No past medical history on file. Past Surgical History: Procedure Laterality Date PRO OPEN MEDICARE CONTACT SPECIALIST FIX ACETABULAR FX Left 09/04/2017 @OPEN TREATMENT, ACETABULAR FX (WRVU 25.41) performed by Amy Lance MD at [facility] OR No family history on file. Social History Socioeconomic History Marital status: Single Spouse name: Not on file Number of children: Not on file Years of education: Not on file Highest education level: Not on file Occupational History Not on file Tobacco Use Smoking status: Never Smokeless tobacco: Never Vaping Use Vaping status: Never Used Substance and Sexual Activity Alcohol use: No Drug use: No Sexual activity: Not on file Other Topics Concern Not on file Social History Narrative [place] [facility] [place]. Social Determinants of Health Financial Resource Strain: Not on file Food Insecurity: Not on file Transportation Needs: Not on file Physical Activity: Not on file Intimate Partner Violence: Unknown (06/14/2024) IPV Inpatient Questions Prevent Contact with Others: Not on file Feels Threatened by Someone: Not on file Feels Unsafe at Home: unable to answer (comment required) Physical Signs of Abuse Present: Not on file Housing Stability: Not on file Current Medications: Scheduled Meds: aspirin 81 mg Oral Daily atorvastatin 40 mg Oral QPM hydrocortisone 10 mg Oral Daily before dinner hydrocortisone 20 mg Oral QAM levothyroxine 200 mcg Oral Daily pantoprazole EC 40 mg Oral Daily desmopressin 0.1 mg Oral Daily desmopressin 0.15 mg Oral Nightly heparin (porcine) 5,000 Units Subcutaneous 2 times per day traZODone 100 mg Oral Nightly QUEtiapine 100 mg Oral BID prazosin 2 mg Oral Nightly baclofen 20 mg Oral TID melatonin 9 mg Oral Nightly montelukast 10 mg Oral Daily zonisamide 400 mg Oral Nightly Continuous Infusions: PRN Meds:.QUEtiapine, LORazepam Allergies Allergen Reactions Lopid [Gemfibrozil] Vitals BP 110/56 (BP Location (NBP): Left arm, Patient Position: Lying) Pulse 83 Temp 36.4 ??C (97.5 ??F) (Oral) Resp 25 Ht 178 cm (5' 10.08) Wt 98.8 kg (217 lb 13 oz) SpO2 97% BMI 31.18 kg/m?? Physical Exam: General appearance: pleasant male pt, appears stated age, not in distress HEENT: anicteric, EOMI, no lymphadenopathy, moist mucus membranes CVS/Pulm: non labored breathing Extremities: no peripheral edema Skin: multiple healed scabs over left upper chest, right hip flexure Labs: Latest Reference Range & Units 06/14/24 01:03 06/14/24 03:32 06/14/24 05:27 06/14/24 08:06 06/14/24 10:35 Sodium 135 - 145 mMol/L 123 (L) 122 (L) 124 (L) 124 (L) 125 (L) (L): Data is abnormally low Latest Reference Range & Units 06/14/24 01:03 Osmolality 275 - 295 mOsm/kg 259 (L) (L): Data is abnormally low Latest Reference Range & Units 06/14/24 01:03 T3 Total 80 - 200 ng/dL 87 Free T4 0.93 - 1.70 ng/dL 1.37 Assessment and plan: Abram Burgos is a 33 y.o. male with a PMH significant for TBI, craniopharyngioma s/p resected 2004, c/b panhypopituitarism with central hypothyroidism, secondary adrenal insufficiency, and diabetesinsipidus, epilepsy, legally blind and osteopenia who presents to the ICU on 06/14/24 for managementof seizure and hyponatremia. Endocrinology was consulted given his history of panhypopituitarism, DI and hyponatremia. There has been no dose adjustments of any of his hormonal replacement medications in many years. Low suspicion of him having access to additional DDAVP dosing at his shelter. Pos sibility of him having access to additional water/fluid intake over the last few weeks. Patients sister and legal guardian said that this is possible given there is often childcare provider turnover and not everyone is up to date on what is recommended. Would continue home dose of DDAVP at this time and adjust his fluid balance mainly by strict fluid restriction and monitoring of urinary output and his sodium level every 8-12 hours. His free T4 is within normal range and thus will continue home dose oflevothyroxine. Additionally, he remains hemodynamically stable and would continue his home dose of hydrocortisone at this time. Craniopharyngioma s/p resection Panhypopituitarism Diabetes Insipidus - continue levothyroxine 200 mcg daily - continue hydrocortisone 20 mg in AM, 10 mg afternoon dose - continue home DDAVP 100 mcg in AM, 150 mcg in PM - recommend fluid restriction to 2 L daily, monitor urinary output/volume intake - monitor sodium every 8-12 hours, be cautious to increase sodium by only 6-8 mMol/L over 24 hours Thank you for allowing us participate in the care of this patient. Will follow along. Patient was discussed with Dr. Morris. Crista Gill MD. PGY4 [facility] [place] Endocrinology Pager #[phone] I have seen the patient and reviewed Dr Gill's history and I agree with the details as written. The assessment and plan were formulated in discussion with me and I agree with them as documented. We discussed with patient and his sister Bettina the options of either fluid restriction along with continuing usual DDAVP dose vs holding the DDAVP dose to allow for the Na to rise more rapidly and they favor the former which we do also. The benefit of fluid restriction and continuing usual DDAVP dose is that this would allow for safer/slower rise in serum Na. Agree with ongoing intensive monitoring of sodium to ensure that this regimen of DDAVP and fluid restriction is effective and safe Shola Morris MD Walking Dragline Oilerbranner machine tender Endocrinology Section [facility] * Consult Note - Kellen Braxton MD - 06/14/2024 6:49 AM EST Neurology Inpatient Consult Note - 06/14/2024 Admit date: 06/14/2024 Attending: Mariola Alfred MD ID: Abram Judy Aubrey is a 33 y.o. 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 HPI: Per ICU documentation He has been in his usual state of health although did have covid within the past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 10.5 mg/dL 06/20/2024 1:42 AM [facility] Est Glomerular Filtration Rate - Male 121 mL/min/1. 73 m?? 06/20/2024 1:42 AM [facility] Comment: This patient's estimated GFR was [...] BLOOD SPECIMEN / Unknown Venipuncture / Unknown 06/20/2024 12:53 AM EST 06/20/2024 1:11 AM EST Martinez Reynolds MD CHEMISTRY ORDERABLES Performing Organization Address City/State/[facility] Co de Phone Number [facility] [place] [address] * (ABNORMAL) Hepatic Function Panel (06/19/2024 4:10 AM EST) Albumin 4.2 3.2 - 5.2 g/dL 06/19/2024 4:51 AM [facility] Aspartate Aminotransferase 57(H) <=39 unit/L 06/19/2024 4:51 AM [facility] Alanine Aminotransferase 76(H) 0 - 55 unit/L 06/19/2024 4:51 AM [facility] Alkaline Phosphatase 133(H) 40 - 130 unit/L 06/19/2024 4:51 AM [facility] Bilirubin, Total 0.2 <=1.3 mg/dL 06/19/2024 4:51 AM [facility] Bilirubin, Direct <0.2 0.0 - 0.3 mg/dL 06/19/2024 4:51 AM [facility] Protein, Total 7.5 6.1 - 8.0 g/dL 06/19/2024 4:51 AM [facility] Blood VENOUS BLOOD SPECIMEN / Unknown Venipuncture / Unknown 06/19/2024 4:10 AM EST 06/19/2024 4:21 AM EST Martinez Reynolds MD CHEMISTRY ORDERABLES [facility] [place] [place] [address] * (ABNORMAL) CBC (with Diff) (06/19/2024 4:10 AM EST) White Blood Cell 6.86 4.00 - 9.50 x10(3)/mc L 06/19/2024 4:28 AM [facility] Red Blood Cell 5.60(H) 4.58 - 5.54 x10(6)/mc L 06/19/2024 4:28 AM [facility] Hemoglobin 13.8 13.7 - 16.5 g/dL 06/19/2024 4:28 AM [facility] Hematocrit 41.6 40.5 - 48.5 % 06/19/2024 4:28 AM [facility] Mean Cell Volume 74.3(L) 82.9 - 93.1 fL 06/19/2024 4:28 AM [facility] Mean Cell Hemoglobin 24.6(L) 27.5 - 32.1 pg 06/19/2024 4:28 AM [facility] Mean Cell Hemoglobin Concentration 33.2 32.0 - 35.7 g/dL 06/19/2024 4:28 AM [facility] Platelet 297 145 - 357 x10(3)/mc L 06/19/2024 4:28 AM [facility] Mean Platelet Volume 9.1 7.6 - 12.9 fL 06/19/2024 4:28 AM [facility] RDW Standard Deviation 39.1 36.0 - 45.0 fL 06/19/2024 4:28 AM [facility] RDW coefficient of variation 14.8(H) 11.4 - 13.8 % 06/19/2024 4:28 AM [facility] NRBC% auto 0.0 % 06/19/2024 4:28 AM [facility] NRBC Absolute <0.01 <0.01 x10(3)/mc L 06/19/2024 4:28 AM [facility] Neutrophil % 64.0 % 06/19/2024 4:28 AM [facility] Neutrophil Absolute (ANC) - Automated 4.39 1.70 - 6.10 x10(3)/mc L 06/19/2024 4:28 AM [facility] Lymph % 28.7 % 06/19/2024 4:28 AM [facility] Lymph Absolute 1.97 0.90 - 3.20 x10(3)/mc L 06/19/2024 4:28 AM [facility] Monocyte % 4.1 % 06/19/2024 4:28 AM [facility] Monocyte Absolute 0.28(L) 0.30 - 0.90 x10(3)/mc L 06/19/2024 4:28 AM [facility] Eos % 2.2 % 06/19/2024 4:28 AM [facility] Eos Absolute 0.15 0.00 - 0.40 x10(3)/mc L 06/19/2024 4:28 AM [facility] Basophil % 0.4 % 06/19/2024 4:28 AM [facility] Baso Absolute <0.04 0.00 - 0.10 x10(3)/mc L 06/19/2024 4:28 AM [facility] Immature Gran % 0.6 % 4:28 AM [facility] Immature Gran Absolute 0.04 0.00 - 0.04 x10(3)/mc L 06/19/2024 4:28 AM [facility] Blood VENOUS BLOOD SPECIMEN / Unknown Venipuncture / Unknown 06/19/2024 4:10 AM EST 06/19/2024 4:21 AM EST Martinez Reynolds MD HEMATOLOGY ORDERABLE S Performing Organization Address City/[facility]/ZIP Co de Phone Number [facility] [place] [address] * (ABNORMAL) Phosphorus (06/19/2024 4:10 AM EST) Phosphorus 5.0(H) 2.5 - 4.5 mg/dL 06/19/2024 4:51 AM EST [facility] Blood VENOUS BLOOD SPECIMEN / Unknown Venipuncture / Unknown 06/19/2024 4:10 AM EST 06/19/2024 4:21 AM EST Martinez Reynolds MD CHEMISTRY ORDERABLES Performing Organization Address City/[facility]/ZIP Co de Phone Number [facility] [place] [address] * Magnesium (06/19/2024 4:10 AM EST) Magnesium 0.74 0.69 - 1.07 mMol/L 06/19/2024 4:51 AM EST [facility] Blood VENOUS BLOOD SPECIMEN / Unknown Venipuncture / Unknown 06/19/2024 4:10 AM EST 06/19/2024 4:21 AM EST Martinez Reynolds MD CHEMISTRY ORDERABLES Performing Organization Address City/[facility]/ZIP Co de Phone Number [facility] [place] [address] * (ABNORMAL) Basic Metabolic Panel (06/19/2024 4:10 AM EST) Glucose 112 65 - 199 mg/dL 06/19/2024 4:51 AM EST [facility] Comment:Glucose Concentratio n >=200 mg/dL plus symptoms is consistent with Diabetes Mellitus. Blood Urea Nitrogen 19 10 - 20 mg/dL 06/19/2024 4:51 AM [facility] Creatinine 0.86 0.80 - 1.50 mg/dL 06/19/2024 4:51 AM [facility] Sodium 135 135 - 145 mMol/L 06/19/2024 4:51 AM [facility] Potassium 3.8 3.5 - 5.0 mMol/L 06/19/2024 4:51 AM [facility] Chloride 97(L) 98 - 107 mMol/L 06/19/2024 4:51 AM [facility] Carbon Dioxide 25 22 - 31 mMol/L 06/19/2024 4:51 AM [facility] Anion Gap 13 5 - 15 mMol/L 06/19/2024 4:51 AM [facility] Calcium 9.4 8.5 - 10.5 mg/dL 06/19/2024 4:51 AM [facility] Est Glomerular Filtration Rate - Male 117 mL/min/1. 73 m?? 06/19/2024 4:51 AM [facility] Comment: This patient's estimated GFR was [...] BLOOD SPECIMEN / Unknown Venipuncture / Unknown 06/19/2024 4:10 AM EST 06/19/2024 4:21 AM EST Martinez Reynolds MD CHEMISTRY ORDERABLES [facility] [place] [place] [address] * (ABNORMAL) Urinalysis with reflex Culture (06/19/2024 3:22 AM EST) Glucose, Urine Dipstick Negative Negative 06/19/2024 3:37 AM [facility] Protein, Urine Dipstick Negative Negative 06/19/2024 3:37 AM [facility] Bilirubin, Urine Dipstick Negative Negative 06/19/2024 3:37 AM [facility] Comment:Clinical correlation required for positive Urine Bilirubin results as false positive may occur with some drugs and drug related products. If a false positive is suspected a serum total bilirubin should be considered if clinically indicated. Urobilinogen, Urine Dipstick Normal Normal, 0.2 mg/dL, 1.0 mg/dL 06/19/2024 3:37 AM [facility] pH, Urine (dipstick) 6.5 5.0 - 8.0 06/19/2024 3:37 AM [facility] Blood, Urine Dipstick Negative Negative 06/19/2024 3:37 AM [facility] Ketone, Urine Dipstick Negative Negative 06/19/2024 3:37 AM [facility] Nitrite, Urine Dipstick Negative Negative 06/19/2024 3:37 AM [facility] Leukocytes, Urine Dipstick Negative Negative 06/19/2024 3:37 AM [facility] Specific [place] Urine Automated 1.021 1.005 - 1.030 06/19/2024 3:37 AM [facility] Appearance, Urine Dipstick Cloudy(A) Clear 06/19/2024 3:37 AM [facility] Color, Urine Dipstick Yellow Yellow, Dark Yellow 06/19/2024 3:37 AM [facility] CULTURE ADDED? 06/19/2024 3:37 AM [facility] Urine URINE SPECIMEN OBTAINED VIA STRAIGHT CATHETER / Unknown Non Blood Collection / Unknown 06/19/2024 3:22 AM EST 06/19/2024 3:31 AM EST Pamela Johnson [place] [address] * XR Chest One View (06/18/2024 7:55 PM EST) WORKSTATION ID [id number] RAD Anatomical Region Laterality Modality Chest N/A [...] have questions please contact the health child day care teacher that requested your imaging first. ? Narrative 06/18/2024 8:09 PM EST EXAMINATION: XR [...] who have questions please contactthe health child day care teacher that requested your imaging first. Electronically signed by: Tobias Sotomayor MD, [facility]([phone]), at 06/18/2024 8:09 PM Pamela Johnson DO IMG DX ORDERABLES * Blood culture (06/18/2024 7:00 PM EST) Blood Culture No growth at 120 hours 06/23/2024 8:00 PM EST [facility] Blood VENOUS BLOOD SPECIMEN / Unknown Venipuncture / Unknown 06/18/2024 7:00 PM EST 06/18/2024 7:05 PM EST Pamela Johnson DO MICROBIOLOGY - BL OOD ORDERABLES Performing Organization Address City/State/[facility] Co de Phone Number [facility] [place] [address] * (ABNORMAL) Blood culture (06/18/2024 7:00 PM EST) Blood Culture Coagulase Negative Staphylococcus species(Critical) VITEK 2 METHOD 06/23/2024 6:52 AM EST [facility] Comment: detected by PCR Interpretation of the importance of skin akbar such as Coag Negative Staph, Viridans Strep, Corynebacteria and other Gram Positive orgs from a single Blood Culture set requires clinical correlation. Gram Stain Anaerobic Bottle: Gram positive cocci in clusters(Critical ) 06/23/2024 6:52 AM EST [facility] Comment:This is an appended report. These results have been appended to a previously preliminary verified report. Blood VENOUS BLOOD SPECIMEN / Unknown Venipuncture / Unknown 06/18/2024 7:00 PM EST 06/18/2024 7:05 PM EST Pamela Johnson DO MICROBIOLOGY - BL OOD ORDERABLES Performing Organization Address [facility] Co de Phone Number [facility] [place] [address] * POC, GLUCOSE (06/18/2024 6:55 PM EST) Pathologist [facility] Glucometer, POC 100 65 - 199 mg/dL 06/18/2024 6:56 PM EST [facility] Comment:Supplemental ranges: <140 mg/dL before meals <180 mg/dL all other times of the day. Blood CAPILLARY BLOOD / Unknown 06/18/2024 6:55 PM EST 06/18/2024 6:56 PM EST Pamela Johnson DO POINT OF CARE TABATHA T ORDERABLES Performing Organization Address [facility] de Phone Number [facility] [place] [address] * EKG 12 Lead (06/18/2024 1:41 PM EST) Ventricular rate 47 BPM MUSE SYSTEM Atrial Rate 47 BPM MUSE SYSTEM P-R Interval 186 ms MUSE SYSTEM QRS Duration 114 ms MUSE SYSTEM Q-T Interval 558 ms MUSE SYSTEM QTC Calculated (Bezet) 493 ms MUSE SYSTEM Calculated P Norman 11 degrees MUSE SYSTEM Calculated R Norman 45 degrees MUSE SYSTEM Calculated T Norman 45 degrees MUSE SYSTEM INTERPRETATION Sinus bradycardia with sinus arrhythmia Abnormal ECG When compared with ECG of 18-JUN-2024 00:53, (unconfirmed) Vent. rate has decreased BY ??32 BPM Nonspecific T wave abnormality no longer evident in Anterior leads Confirmed by MD MONTALVO SALVATORE ([id number]) on 06/20/2024 2:52:15 PM MUSE SYSTEM 06/18/2024 1:41 PM EST 06/20/2024 2:52 PM EST Martinez Reynolds MD ECG ORDERABLES MUSE SYSTEM * Sodium (06/18/2024 12:22 PM EST) Sodium 135 135 - 145 mMol/L 06/18/2024 1:01 PM EST [facility] Blood VENOUS BLOOD SPECIMEN / Unknown Venipuncture / Unknown 06/18/2024 12:22 PM EST 06/18/2024 12:35 PM EST Pamela Johnson DO CHEMISTRY ORDERAB LES Performing Organization Address [facility] Co de Phone Number [facility] [place] [address] * CT Head wo Contrast (Generic) (06/18/2024 11:18 AM EST) WORKSTATION ID [id number] RAD Anatomical Region Laterality Modality Head Computed [...] have questions please contact the health child day care teacher that requested your imaging first. ? Electronically signed by: Jimbo Casillas MD, [facility] ([phone]), at 06/18/2024 11:37 AM Narrative 06/18/2024 11:37 [...] who have questions please contactthe health child day care teacher that requested your imaging first. Pamela Johnson DO IMG CT ORDERABLES * (ABNORMAL) Hepatic Function Panel (06/18/2024 1:26 AM EST) Albumin 4.2 3.2 - 5.2 g/dL 06/18/2024 2:02 AM EST [facility] Aspartate Aminotransferase 52(H) <=39 unit/L 06/18/2024 2:02 AM EST [facility] Alanine Aminotransferase 61(H) 0 - 55 unit/L 06/18/2024 2:02 AM [facility] Alkaline Phosphatase 118 40 - 130 unit/L 06/18/2024 2:02 AM [facility] Bilirubin, Total 0.3 <=1.3 mg/dL 06/18/2024 2:02 AM [facility] Bilirubin, Direct <0.2 0.0 - 0.3 mg/dL 06/18/2024 2:02 AM [facility] Protein, Total 6.9 6.1 - 8.0 g/dL 06/18/2024 2:02 AM [facility] Blood VENOUS BLOOD SPECIMEN / Unknown Venipuncture / Unknown 06/18/2024 1:26 AM EST 06/18/2024 1:34 AM EST Martinez Reynolds MD CHEMISTRY ORDERABLES Performing Organization Address City/State/[facility] Co de Phone Number [facility] [place] [phone] * (ABNORMAL) CBC (with Diff) (06/18/2024 1:26 AM EST) White Blood Cell 9.78(H) 4.00 - 9.50 x10(3)/mc L 06/18/2024 1:38 AM [facility] Red Blood Cell 5.02 4.58 - 5.54 x10(6)/mc L 06/18/2024 1:38 AM [facility] Hemoglobin 12.4(L) 13.7 - 16.5 g/dL 06/18/2024 1:38 AM [facility] Hematocrit 37.2(L) 40.5 - 48.5 % 06/18/2024 1:38 AM [facility] Mean Cell Volume 74.1(L) 82.9 - 93.1 fL 06/18/2024 1:38 AM [facility] Mean Cell Hemoglobin 24.7(L) 27.5 - 32.1 pg 06/18/2024 1:38 AM [facility] Mean Cell Hemoglobin Concentration 33.3 32.0 - 35.7 g/dL 06/18/2024 1:38 AM [facility] Platelet 262 145 - 357 x10(3)/mc L 06/18/2024 1:38 AM [facility] Mean Platelet Volume 9.2 7.6 - 12.9 fL 06/18/2024 1:38 AM [facility] RDW Standard Deviation 40.8 36.0 - 45.0 fL 06/18/2024 1:38 AM [facility] RDW coefficient of variation 15.3(H) 11.4 - 13.8 % 06/18/2024 1:38 AM [facility] NRBC% auto 0.0 % 06/18/2024 1:38 AM [facility] NRBC Absolute <0.01 <0.01 x10(3)/mc L 06/18/2024 1:38 AM [facility] Neutrophil % 72.8 % 06/18/2024 1:38 AM [facility] Neutrophil Absolute (ANC) - Automated 7.12(H) 1.70 - 6.10 x10(3)/mc L 06/18/2024 1:38 AM [facility] Lymph % 16.9 % 06/18/2024 1:38 AM [facility] Lymph Absolute 1.65 0.90 - 3.20 x10(3)/mc L 06/18/2024 1:38 AM [facility] Monocyte % 8.7 % 06/18/2024 1:38 AM [facility] Monocyte Absolute 0.85 0.30 - 0.90 x10(3)/mc L 06/18/2024 1:38 AM [facility] Eos % 1.0 % 06/18/2024 1:38 AM [facility] Eos Absolute 0.10 0.00 - 0.40 x10(3)/mc L 06/18/2024 1:38 AM EST [facility] Basophil % 0.2 % 06/18/2024 1:38 AM EST [facility] Baso Absolute <0.04 0.00 - 0.10 x10(3)/mc L 06/18/2024 1:38 AM EST [facility] Immature Gran % 0.4 % 1:38 AM EST [facility] Immature Gran Absolute 0.04 0.00 - 0.04 x10(3)/mc L 06/18/2024 1:38 AM EST [facility] Blood VENOUS BLOOD SPECIMEN / Unknown Venipuncture / Unknown 06/18/2024 1:26 AM EST 06/18/2024 1:34 AM EST Martinez Reynolds MD HEMATOLOGY ORDERABLE S Performing Organization Address City/[facility]/ZIP Co de Phone Number [facility] [place] [address] * (ABNORMAL) Phosphorus (06/18/2024 1:26 AM EST) Phosphorus 5.7(H) 2.5 - 4.5 mg/dL 06/18/2024 2:02 AM EST [facility] Blood VENOUS BLOOD SPECIMEN / Unknown Venipuncture / Unknown 06/18/2024 1:26 AM EST 06/18/2024 1:34 AM EST Martinez Reynolds MD CHEMISTRY ORDERABLES [facility] [place] [address] * Magnesium (06/18/2024 1:26 AM EST) Magnesium 0.84 0.69 - 1.07 mMol/L 06/18/2024 2:02 AM EST [facility] Blood VENOUS BLOOD SPECIMEN / Unknown Venipuncture / Unknown 06/18/2024 1:26 AM EST 06/18/2024 1:34 AM EST Martinez Reynolds MD CHEMISTRY ORDERABLES [facility] [place] [address] * Basic Metabolic Panel (06/18/2024 1:26 AM EST) Glucose 106 65 - 199 mg/dL 06/18/2024 2:02 AM [facility] Comment:Glucose Concentratio n >=200 mg/dL plus symptoms is consistent with Diabetes Mellitus. Blood Urea Nitrogen 15 10 - 20 mg/dL 06/18/2024 2:02 AM [facility] Creatinine 1.05 0.80 - 1.50 mg/dL 06/18/2024 2:02 AM [facility] Sodium 138 135 - 145 mMol/L 06/18/2024 2:02 AM [facility] Potassium 4.4 3.5 - 5.0 mMol/L 06/18/2024 2:02 AM [facility] Chloride 102 98 - 107 mMol/L 06/18/2024 2:02 AM [facility] Carbon Dioxide 25 22 - 31 mMol/L 06/18/2024 2:02 AM [facility] Anion Gap 11 5 - 15 mMol/L 06/18/2024 2:02 AM [facility] Calcium 9.3 8.5 - 10.5 mg/dL 06/18/2024 2:02 AM [facility] Est Glomerular Filtration Rate - Male 96 mL/min/1. 73 m?? 06/18/2024 2:02 AM [facility] Comment: This patient's estimated GFR was [...] SPECIMEN / Unknown Venipuncture / Unknown 06/18/2024 1:26 AM EST 06/18/2024 1:34 AM EST Martinez Reynolds MD CHEMISTRY ORDERABLES Performing Organization Address City/[facility]/ZIP Co de Phone Number [facility] [place] [address] * EKG 12 Lead (06/18/2024 12:53 AM EST) Ventricular rate 79 BPM MUSE SYSTEM Atrial Rate 79 BPM MUSE SYSTEM P-R Interval 160 ms MUSE SYSTEM QRS Duration 98 ms MUSE SYSTEM Q-T Interval 420 ms MUSE SYSTEM QTC Calculated (Bezet) 481 ms MUSE SYSTEM Calculated P [place] 17 degrees MUSE SYSTEM Calculated R [place] 46 degrees MUSE SYSTEM Calculated T [place] 45 degrees MUSE SYSTEM INTERPRETATION Normal sinus rhythm Nonspecific T wave abnormality Prolonged QT Abnormal ECG When compared with ECG of 14-JUN-2024 01:04, Nonspecific T wave abnormality now evident in Anterior leads I personally reviewed the tracing and edited the fellows interpretation Confirmed by fellow MD Corbin, Maninder ([id number]) on 06/18/2024 4:57:53 PM Confirmed by Anthony Penn MD ([id number]) on 06/19/2024 3:21:54 PM MUSE SYSTEM 06/18/2024 12:5 3 AM EST 06/19/2024 3:21 PM EST Samantha Babb MD ECG ORDERABLES Performing Organization Address City/[facility]/ZIP Co de Phone Number MUSE SYSTEM * Sodium (06/17/2024 5:50 PM EST) Sodium 141 135 - 145 mMol/L 06/17/2024 6:38 PM EST [facility] Blood VENOUS BLOOD SPECIMEN / Unknown Venipuncture / Unknown 06/17/2024 5:50 PM EST 06/17/2024 6:07 PM EST Channing Ballesteros MD CHEMISTRY ORDERABLES [facility] [place] [address] * (ABNORMAL) Hepatic Function Panel (06/17/2024 11:58 AM EST) Albumin 4.2 3.2 - 5.2 g/dL 06/17/2024 12:45 PM EST [facility] Aspartate Aminotransferase 37 <=39 unit/L 06/17/2024 12:45 PM EST [facility] Alanine Aminotransferase 58(H) 0 - 55 unit/L 06/17/2024 12:45 PM EST [facility] Alkaline Phosphatase 118 40 - 130 unit/L 06/17/2024 12:45 PM EST [facility] Bilirubin, Total 0.2 <=1.3 mg/dL 06/17/2024 12:45 PM EST [facility] Bilirubin, Direct <0.2 0.0 - 0.3 mg/dL 06/17/2024 12:45 PM EST [facility] Protein, Total 7.1 6.1 - 8.0 g/dL 06/17/2024 12:45 PM EST [facility] Blood VENOUS BLOOD SPECIMEN / Unknown Venipuncture / Unknown 06/17/2024 11:58 AM EST 06/17/2024 12:11 PM EST Pamela Johnson DO CHEMISTRY ORDERAB LES [facility] [place] [address] * Sodium (06/17/2024 11:58 AM EST) Sodium 141 135 - 145 mMol/L 06/17/2024 12:45 PM EST [facility] Blood VENOUS BLOOD SPECIMEN / Unknown Venipuncture / Unknown 06/17/2024 11:58 AM EST 06/17/2024 12:11 PM EST Channing Ballesteros MD CHEMISTRY ORDERABLES [facility] [place] [address] * Sodium (06/17/2024 6:23 AM EST) Sodium 140 135 - 145 mMol/L 06/17/2024 6:53 AM [facility] Blood VENOUS BLOOD SPECIMEN / Unknown Venipuncture / Unknown 06/17/2024 6:23 AM EST 06/17/2024 6:29 AM EST Channing Ballesteros MD CHEMISTRY ORDERABLES Performing Organization Address City/[facility]/ZIP Co de Phone Number [facility] [place] [address] * (ABNORMAL) CBC (with Diff) (06/17/2024 12:22 AM EST) [facility] White Blood Cell 6.81 4.00 - 9.50 x10(3)/mc L 06/17/2024 12:37 AM [facility] Red Blood Cell 5.20 4.58 - 5.54 x10(6)/mc L 06/17/2024 12:37 AM [facility] Hemoglobin 12.9(L) 13.7 - 16.5 g/dL 06/17/2024 12:37 AM [facility] Hematocrit 37.9(L) 40.5 - 48.5 % 06/17/2024 12:37 AM [facility] Mean Cell Volume 72.9(L) 82.9 - 93.1 fL 06/17/2024 12:37 AM [facility] Mean Cell Hemoglobin 24.8(L) 27.5 - 32.1 pg 06/17/2024 12:37 AM [facility] Mean Cell Hemoglobin Concentration 34.0 32.0 - 35.7 g/dL 06/17/2024 12:37 AM [facility] Platelet 301 145 - 357 x10(3)/mc L 06/17/2024 12:37 AM [facility] Mean Platelet Volume 9.0 7.6 - 12.9 fL 06/17/2024 12:37 AM [facility] RDW Standard Deviation 38.8 36.0 - 45.0 fL 06/17/2024 12:37 AM [facility] RDW coefficient of variation 14.9(H) 11.4 - 13.8 % 06/17/2024 12:37 AM [facility] NRBC% auto 0.0 % 06/17/2024 12:37 AM [facility] NRBC Absolute <0.01 <0.01 x10(3)/mc L 06/17/2024 12:37 AM [facility] Neutrophil % 58.2 % 06/17/2024 12:37 AM [facility] Neutrophil Absolute (ANC) - Automated 3.96 1.70 - 6.10 x10(3)/mc L 06/17/2024 12:37 AM [facility] Lymph % 30.1 % 06/17/2024 12:37 AM [facility] Lymph Absolute 2.05 0.90 - 3.20 x10(3)/mc L 06/17/2024 12:37 AM [facility] Monocyte % 9.8 % 06/17/2024 12:37 AM [facility] Monocyte Absolute 0.67 0.30 - 0.90 x10(3)/mc L 06/17/2024 12:37 AM [facility] Eos % 1.0 % 06/17/2024 12:37 AM [facility] Eos Absolute 0.07 0.00 - 0.40 x10(3)/mc L 06/17/2024 12:37 AM [facility] Basophil % 0.3 % 06/17/2024 12:37 AM [facility] Baso Absolute <0.04 0.00 - 0.10 x10(3)/mc L 06/17/2024 12:37 AM EST [facility] Immature Gran % 0.6 % 12:37 AM EST [facility] Immature Gran Absolute 0.04 0.00 - 0.04 x10(3)/mc L 06/17/2024 12:37 AM EST [facility] Blood VENOUS BLOOD SPECIMEN / Unknown Venipuncture / Unknown 06/17/2024 12:22 AM EST 06/17/2024 12:28 AM EST Martinez Reynolds MD HEMATOLOGY ORDERABLE S [facility] [place] [address] * Phosphorus (06/17/2024 12:22 AM EST) Phosphorus 4.3 2.5 - 4.5 mg/dL 06/17/2024 12:58 AM EST [facility] Blood VENOUS BLOOD SPECIMEN / Unknown Venipuncture / Unknown 06/17/2024 12:22 AM EST 06/17/2024 12:28 AM EST Martinez Reynolds MD CHEMISTRY ORDERABLES Performing Organization Address City/[facility]/ZIP Co de Phone Number [facility] [place] [address] * Magnesium (06/17/2024 12:22 AM EST) Magnesium 0.88 0.69 - 1.07 mMol/L 06/17/2024 12:58 AM EST [facility] Blood VENOUS BLOOD SPECIMEN / Unknown Venipuncture / Unknown 06/17/2024 12:22 AM EST 06/17/2024 12:28 AM EST Martinez Reynolds MD CHEMISTRY ORDERABLES [facility] [place] [address] * Basic Metabolic Panel (06/17/2024 12:22 AM EST) Glucose 99 65 - 199 mg/dL 06/17/2024 1:12 AM [facility] Comment:Glucose Concentratio n >=200 mg/dL plus symptoms is consistent with Diabetes Mellitus. Blood Urea Nitrogen 14 10 - 20 mg/dL 06/17/2024 1:12 AM [facility] Creatinine 0.90 0.80 - 1.50 mg/dL 06/17/2024 1:12 AM [facility] Sodium 140 135 - 145 mMol/L 06/17/2024 1:12 AM [facility] Potassium 4.1 3.5 - 5.0 mMol/L 06/17/2024 1:12 AM [facility] Chloride 105 98 - 107 mMol/L 06/17/2024 1:12 AM [facility] Carbon Dioxide 24 22 - 31 mMol/L 06/17/2024 1:12 AM [facility] Anion Gap 11 5 - 15 mMol/L 06/17/2024 1:12 AM [facility] Calcium 9.4 8.5 - 10.5 mg/dL 06/17/2024 1:12 AM [facility] Est Glomerular Filtration Rate - Male 115 mL/min/1. 73 m?? 06/17/2024 1:12 AM [facility] Comment: This patient's estimated GFR was [...] BLOOD SPECIMEN / Unknown Venipuncture / Unknown 06/17/2024 12:22 AM EST 06/17/2024 12:28 AM EST Martinez Reynolds MD CHEMISTRY ORDERABLES Performing Organization Address [facility] Co de Phone Number [facility] [place] [place] [address] * Sodium (06/16/2024 6:37 PM EST) Sodium 142 135 - 145 mMol/L 06/16/2024 6:55 PM EST [facility] Blood VENOUS BLOOD SPECIMEN / Unknown Venipuncture / Unknown 06/16/2024 6:37 PM EST 06/16/2024 6:42 PM EST Channing Ballesteros MD CHEMISTRY ORDERABLES Performing Organization Address [facility] de Phone Number [facility] [place] [address] * Sodium (06/16/2024 2:05 PM EST) Sodium 135 135 - 145 mMol/L 06/16/2024 2:54 PM EST [facility] Blood VENOUS BLOOD SPECIMEN / Unknown Venipuncture / Unknown 06/16/2024 2:05 PM EST 06/16/2024 2:23 PM EST Channing Ballesteros MD CHEMISTRY ORDERABLES Performing Organization Address [facility] Co de Phone Number [facility] [place] [place] [address] * Sodium (06/16/2024 12:03 PM EST) Sodium 139 135 - 145 mMol/L 06/16/2024 1:02 PM EST [facility] Blood VENOUS BLOOD SPECIMEN / Unknown Venipuncture / Unknown 06/16/2024 12:03 PM EST 06/16/2024 12:06 PM EST Marline Calderon APRN CHEMISTRY ORDERABL ES Performing Organization Address City/[facility]/ZIP Co de Phone Number [facility] [place] [address] * (ABNORMAL) Sodium (06/16/2024 6:00 AM EST) Pathologist [facility] Sodium 131(L) 135 - 145 mMol/L 06/16/2024 6:26 AM [facility] Blood VENOUS BLOOD SPECIMEN / Unknown Venipuncture / Unknown 06/16/2024 6:00 AM EST 06/16/2024 6:03 AM EST Marline Pack Kvng SANTANA CHEMISTRY ORDERABL ES [facility] [place] [place] [address] * (ABNORMAL) CBC (with Diff) (06/16/2024 12:09 AM EST) [facility] White Blood Cell 7.71 4.00 - 9.50 x10(3)/mc L 06/16/2024 12:26 AM [facility] Red Blood Cell 4.69 4.58 - 5.54 x10(6)/mc L 06/16/2024 12:26 AM [facility] Hemoglobin 11.7(L) 13.7 - 16.5 g/dL 06/16/2024 12:26 AM [facility] Hematocrit 33.8(L) 40.5 - 48.5 % 06/16/2024 12:26 AM [facility] Mean Cell Volume 72.1(L) 82.9 - 93.1 fL 06/16/2024 12:26 AM [facility] Mean Cell Hemoglobin 24.9(L) 27.5 - 32.1 pg 06/16/2024 12:26 AM [facility] Mean Cell Hemoglobin Concentration 34.6 32.0 - 35.7 g/dL 06/16/2024 12:26 AM [facility] Platelet 241 145 - 357 x10(3)/mc L 06/16/2024 12:26 AM [facility] Mean Platelet Volume 9.3 7.6 - 12.9 fL 06/16/2024 12:26 AM [facility] RDW Standard Deviation 37.3 36.0 - 45.0 fL 06/16/2024 12:26 AM [facility] RDW coefficient of variation 14.5(H) 11.4 - 13.8 % 06/16/2024 12:26 AM [facility] NRBC% auto 0.0 % 06/16/2024 12:26 AM [facility] NRBC Absolute <0.01 <0.01 x10(3)/mc L 06/16/2024 12:26 AM [facility] Neutrophil % 64.4 % 06/16/2024 12:26 AM [facility] Neutrophil Absolute (ANC) - Automated 4.96 1.70 - 6.10 x10(3)/mc L 06/16/2024 12:26 AM [facility] Lymph % 23.7 % 06/16/2024 12:26 AM [facility] Lymph Absolute 1.83 0.90 - 3.20 x10(3)/mc L 06/16/2024 12:26 AM [facility] Monocyte % 9.7 % 06/16/2024 12:26 AM [facility] Monocyte Absolute 0.75 0.30 - 0.90 x10(3)/mc L 06/16/2024 12:26 AM [facility] Eos % 1.0 % 06/16/2024 12:26 AM [facility] Eos Absolute 0.08 0.00 - 0.40 x10(3)/mc L 06/16/2024 12:26 AM [facility] Basophil % 0.4 % 06/16/2024 12:26 AM [facility] Baso Absolute <0.04 0.00 - 0.10 x10(3)/mc L 06/16/2024 12:26 AM [facility] Immature Gran % 0.8 % 12:26 AM EST [facility] Immature Gran Absolute 0.06(H) 0.00 - 0.04 x10(3)/mc L 06/16/2024 12:26 AM EST [facility] Blood VENOUS BLOOD SPECIMEN / Unknown Venipuncture / Unknown 06/16/2024 12:09 AM EST 06/16/2024 12:21 AM EST Martinez Reynolds MD HEMATOLOGY ORDERABLE S [facility] [place] [address] * Phosphorus (06/16/2024 12:09 AM EST) Phosphorus 3.2 2.5 - 4.5 mg/dL 06/16/2024 12:50 AM EST [facility] Blood VENOUS BLOOD SPECIMEN / Unknown Venipuncture / Unknown 06/16/2024 12:09 AM EST 06/16/2024 12:21 AM EST Martinez Reynolds MD CHEMISTRY ORDERABLES Performing Organization Address City/[facility]/ZIP Co de Phone Number [facility] [place] [address] * Magnesium (06/16/2024 12:09 AM EST) Magnesium 0.85 0.69 - 1.07 mMol/L 06/16/2024 12:50 AM EST [facility] Blood VENOUS BLOOD SPECIMEN / Unknown Venipuncture / Unknown 06/16/2024 12:09 AM EST 06/16/2024 12:21 AM EST Martinez Reynolds MD CHEMISTRY ORDERABLES Performing Organization Address City/[facility]/ZIP Co de Phone Number [facility] [place] [address] * (ABNORMAL) Basic Metabolic Panel (06/16/2024 12:09 AM EST) Glucose 92 65 - 199 mg/dL 06/16/2024 12:50 AM [facility] Comment:Glucose Concentratio n >=200 mg/dL plus symptoms is consistent with Diabetes Mellitus. Blood Urea Nitrogen 12 10 - 20 mg/dL 06/16/2024 12:50 AM [facility] Creatinine 0.92 0.80 - 1.50 mg/dL 06/16/2024 12:50 AM [facility] Sodium 131(L) 135 - 145 mMol/L 06/16/2024 12:50 AM [facility] Potassium 3.9 3.5 - 5.0 mMol/L 06/16/2024 12:50 AM [facility] Chloride 99 98 - 107 mMol/L 06/16/2024 12:50 AM [facility] Carbon Dioxide 22 22 - 31 mMol/L 06/16/2024 12:50 AM [facility] Anion Gap 10 5 - 15 mMol/L 06/16/2024 12:50 AM [facility] Calcium 8.3(L) 8.5 - 10.5 mg/dL 06/16/2024 12:50 AM [facility] Est Glomerular Filtration Rate - Male 112 mL/min/1. 73 m?? 06/16/2024 12:50 AM [facility] Comment: This patient's estimated GFR was [...] BLOOD SPECIMEN / Unknown Venipuncture / Unknown 06/16/2024 12:09 AM EST 06/16/2024 12:21 AM EST Martinez Reynolds MD CHEMISTRY ORDERABLES [facility] [place] [address] * (ABNORMAL) Sodium (2024 5:58 PM EST) Pathologist [facility] Sodium 129(L) 135 - 145 mMol/L 2024 6:37 PM EST [facility] Blood VENOUS BLOOD SPECIMEN / Unknown Venipuncture / Unknown 2024 5:58 PM EST 2024 6:05 PM EST Marline Calderon APRN CHEMISTRY ORDERABL ES Performing Organization Address [facility]/[place] [address] * MRI Brain wwo Contrast (Generic) (2024 4:20 PM EST) [facility] WORKSTATION ID [id number] DH RAD Anatomical Region Laterality Modality Head Magnetic [...] have questions please contact the health child day care teacher that requested your imaging first. ? Electronically signed by: Raudel Heredia MD, [facility] ([phone]), at 2024 4:46 PM Narrative 2024 4:46 [...] clip with its blades near the right JAILER CHIEF. Procedure Note Raudel Heredia MD - 2024 [...] aneurysm clipwith its blades near the right JAILER CHIEF. IMPRESSION Homogeneously enhancing 3.5 cm mass along [...] who have questions please contactthe health child day care teacher that requested your imaging first. Marline Calderon APRN IMG MRI ORDERABLES * (ABNORMAL) Sodium (2024 12:07 PM EST) Sodium 129(L) 135 - 145 mMol/L 2024 12:47 PM EST [facility] Blood VENOUS BLOOD SPECIMEN / Unknown Venipuncture / Unknown 2024 12:07 PM EST 2024 12:33 PM EST Marline Calderon TEAM PHYSICIAN CHEMISTRY ORDERABL ES Performing Organization Address City/[facility]/[place] [address] * (ABNORMAL) Sodium (2024 5:54 AM EST) Sodium 128(L) 135 - 145 mMol/L 2024 6:42 AM EST [facility] Blood VENOUS BLOOD SPECIMEN / Unknown Venipuncture / Unknown 2024 5:54 AM EST 2024 6:14 AM EST Marline Calderon TEAM PHYSICIAN CHEMISTRY ORDERABL ES [facility] [place] [address] * (ABNORMAL) CBC (with Diff) (2024 12:06 AM EST) White Blood Cell 6.30 4.00 - 9.50 x10(3)/mc L 2024 12:17 AM [facility] Red Blood Cell 4.79 4.58 - 5.54 x10(6)/mc L 2024 12:17 AM [facility] Hemoglobin 11.9(L) 13.7 - 16.5 g/dL 2024 12:17 AM [facility] Hematocrit 34.2(L) 40.5 - 48.5 % 2024 12:17 AM [facility] Mean Cell Volume 71.4(L) 82.9 - 93.1 fL 2024 12:17 AM [facility] Mean Cell Hemoglobin 24.8(L) 27.5 - 32.1 pg 2024 12:17 AM [facility] Mean Cell Hemoglobin Concentration 34.8 32.0 - 35.7 g/dL 2024 12:17 AM [facility] Platelet 269 145 - 357 x10(3)/mc L 2024 12:17 AM [facility] Mean Platelet Volume 9.1 7.6 - 12.9 fL 2024 12:17 AM [facility] RDW Standard Deviation 35.5(L) 36.0 - 45.0 fL 2024 12:17 AM [facility] RDW coefficient of variation 13.9(H) 11.4 - 13.8 % 2024 12:17 AM [facility] NRBC% auto 0.0 % 2024 12:17 AM [facility] NRBC Absolute <0.01 <0.01 x10(3)/mc L 2024 12:17 AM [facility] Neutrophil % 57.9 % 2024 12:17 AM [facility] Neutrophil Absolute (ANC) - Automated 3.65 1.70 - 6.10 x10(3)/mc L 2024 12:17 AM [facility] Lymph % 30.3 % 2024 12:17 AM [facility] Lymph Absolute 1.91 0.90 - 3.20 x10(3)/mc L 2024 12:17 AM [facility] Monocyte % 9.7 % 2024 12:17 AM [facility] Monocyte Absolute 0.61 0.30 - 0.90 x10(3)/mc L 2024 12:17 AM [facility] Eos % 1.3 % 2024 12:17 AM [facility] Eos Absolute 0.08 0.00 - 0.40 x10(3)/mc L 2024 12:17 AM [facility] Basophil % 0.3 % 2024 12:17 AM [facility] Baso Absolute <0.04 0.00 - 0.10 x10(3)/mc L 2024 12:17 AM [facility] Immature Gran % 0.5 % 12:17 AM [facility] Immature Gran Absolute <0.04 0.00 - 0.04 x10(3)/mc L 2024 12:17 AM [facility] Blood VENOUS BLOOD SPECIMEN / Unknown Venipuncture / Unknown 2024 12:06 AM EST 2024 12:10 AM EST Martinez Reynolds MD HEMATOLOGY ORDERABLE S [facility] [place] [address] * Phosphorus (2024 12:06 AM EST) Pathologist [facility] Phosphorus 2.8 2.5 - 4.5 mg/dL 2024 12:39 AM [facility] Blood VENOUS BLOOD SPECIMEN / Unknown Venipuncture / Unknown 2024 12:06 AM EST 2024 12:10 AM EST Martinez Reynolds MD CHEMISTRY ORDERABLES [facility] [place] [place] [address] * Magnesium (2024 12:06 AM EST) Pathologist [facility] Magnesium 0.79 0.69 - 1.07 mMol/L 2024 12:39 AM [facility] Blood VENOUS BLOOD SPECIMEN / Unknown Venipuncture / Unknown 2024 12:06 AM EST 2024 12:10 AM EST Martinez Reynolds MD CHEMISTRY ORDERABLES [facility] [place] [address] * (ABNORMAL) Basic Metabolic Panel (2024 12:06 AM EST) Pathologist [facility] Glucose 103 65 - 199 mg/dL 2024 12:39 AM [facility] Comment:Glucose Concentratio n >=200 mg/dL plus symptoms is consistent with Diabetes Mellitus. Blood Urea Nitrogen 14 10 - 20 mg/dL 2024 12:39 AM [facility] Creatinine 0.74(L) 0.80 - 1.50 mg/dL 2024 12:39 AM [facility] Sodium 128(L) 135 - 145 mMol/L 2024 12:39 AM [facility] Potassium 4.1 3.5 - 5.0 mMol/L 2024 12:39 AM EST [facility] Chloride 97(L) 98 - 107 mMol/L 2024 12:39 AM EST [facility] Carbon Dioxide 19(L) 22 - 31 mMol/L 2024 12:39 AM EST [facility] Anion Gap 12 5 - 15 mMol/L 2024 12:39 AM [facility] Calcium 8.1(L) 8.5 - 10.5 mg/dL 2024 12:39 AM [facility] Est Glomerular Filtration Rate - Male 122 mL/min/1. 73 m?? 2024 12:39 AM [facility] Comment: This patient's estimated GFR was [...] BLOOD SPECIMEN / Unknown Venipuncture / Unknown 2024 12:06 AM EST 2024 12:10 AM EST Martinez Reynolds MD CHEMISTRY ORDERABLES [facility] [place] [address] * (ABNORMAL) Sodium (06/14/2024 6:49 PM EST) Sodium 126(L) 135 - 145 mMol/L 06/14/2024 7:17 PM EST [facility] Blood VENOUS BLOOD SPECIMEN / Unknown Venipuncture / Unknown 06/14/2024 6:49 PM EST 06/14/2024 6:53 PM EST Marline Calderon APRN CHEMISTRY ORDERABL ES Performing Organization Address City/[facility]/ZIP Co de Phone Number [facility] [place] [address] * EEG Continuous Monitoring Inpatient (06/14/2024 3:33 [...] Marline Calderon APRN NEUROLOGY ORDERABL ES * (ABNORMAL) Sodium (06/14/2024 2:15 PM EST) Sodium 126(L) 135 - 145 mMol/L 06/14/2024 3:18 PM EST [facility] Blood VENOUS BLOOD SPECIMEN / Unknown Venipuncture / Unknown 06/14/2024 2:15 PM EST 06/14/2024 2:36 PM EST Mariola Alfred MD CHEMISTRY ORDERABLES Performing Organization Address City/[facility]/ZIP Co de Phone Number [facility] [place] [place] [address] * (ABNORMAL) Sodium (06/14/2024 12:12 PM EST) Sodium 125(L) 135 - 145 mMol/L 06/14/2024 12:48 PM EST [facility] Blood VENOUS BLOOD SPECIMEN / Unknown Venipuncture / Unknown 06/14/2024 12:12 PM EST 06/14/2024 12:20 PM EST Mariola Alfred MD CHEMISTRY ORDERABLES [facility] [place] [address] * (ABNORMAL) Sodium (06/14/2024 10:35 AM EST) Pathologist [facility] Sodium 125(L) 135 - 145 mMol/L 06/14/2024 11:21 AM EST [facility] Blood VENOUS BLOOD SPECIMEN / Unknown Venipuncture / Unknown 06/14/2024 10:35 AM EST 06/14/2024 10:44 AM EST Mariola Alfred MD CHEMISTRY ORDERABLES Performing Organization Address [facility] Co de Phone Number [facility] [place] [address] * Request For 2nd Read CT Head (06/14/2024 9:46 AM EST) [facility] WORKSTATION ID [id number] [facility] Anatomical Region Laterality Modality Head SO Impressions [...] have questions please contact the health child day care teacher that requested your imaging first. ? Narrative 06/14/2024 10:41 AM EST EXAMINATION: REQUEST FOR 2ND READ CT HEAD CLINICAL HISTORY: New seizure with known mass, ?enlargening. Presenting with seizure; Sending Institution [facility]; Date of exam [id number]; I believe a reinterpretation of this exam may alter care of Patient. Yes TECHNIQUE: Reinterpretation of noncontrast CT head performed at [facility] 06/13/2024 at 2143 hours COMPARISON: Noncontrast [...] known mass, ?enlargening. Presentingwith seizure; Sending Institution [facility]; Date of exam [id number]; I believe a reinterpretation of this exam may alter care of Patient. Yes TECHNIQUE: Reinterpretation of noncontrast CT head performed at [facility] 06/13/2024 at 2143 hours COMPARISON: Noncontrast [...] who have questions please contactthe health child day care teacher that requested your imaging first. Lexie Osullivan TEAM PHYSICIAN IMG OUTSIDE INTERP [facility] ORDERABLES * (ABNORMAL) Urinalysis Microscopic (06/14/2024 8:06 AM EST) Bacteria, Urine None None /HPF 12:26 PM EST [facility] Amorphous Crystals, Urine Many(A) None /HPF 06/14/2024 12:26 PM EST [facility] RBC, Urine 1 0 - 3 /HPF 06/14/2024 12:26 PM EST [facility] WBC, Urine 1 0 - 3 /HPF 06/14/2024 12:26 PM EST [facility] Squamous Epithelial Cells, Urine 0 0 - 5 /HPF 06/14/2024 12:26 PM EST [facility] Hyaline Casts, Urine 0 0 - 2 /LPF 06/14/2024 12:26 PM EST [facility] Urine URINE SPECIMEN / Unknown Non Blood Collection / Unknown 06/14/2024 8:06 AM EST 06/14/2024 8:52 AM EST Marline Calderon TEAM PHYSICIAN URINE ORDERABLES [facility] [place] [address] * Urinalysis Microscopic Exam (06/14/2024 8:06 AM EST) Urine URINE SPECIMEN / Unknown Non Blood Collection / Unknown 06/14/2024 8:06 AM EST 06/14/2024 8:52 AM EST Marline Calderon APRN URINE ORDERABLES [facility] [place] [address] * (ABNORMAL) Urinalysis Dipstick (06/14/2024 8:06 AM EST) Glucose, Urine Dipstick Negative Negative 06/14/2024 12:26 PM [facility] Protein, Urine Dipstick Negative Negative 06/14/2024 12:26 PM [facility] Bilirubin, Urine Dipstick Negative Negative 06/14/2024 12:26 PM [facility] Comment:Clinical correlation required for positive Urine Bilirubin results as false positive may occur with some drugs and drug related products. If a false positive is suspected a serum total bilirubin should be considered if clinically indicated. Urobilinogen, Urine Dipstick Normal Normal, 0.2 mg/dL, 1.0 mg/dL 06/14/2024 12:26 PM [facility] pH, Urine (dipstick) 7.0 5.0 - 8.0 06/14/2024 12:26 PM [facility] Blood, Urine Dipstick Negative Negative 06/14/2024 12:26 PM [facility] Ketone, Urine Dipstick Negative Negative 06/14/2024 12:26 PM [facility] Nitrite, Urine Dipstick Negative Negative 06/14/2024 12:26 PM [facility] Leukocytes, Urine Dipstick Negative Negative 06/14/2024 12:26 PM [facility] Specific [place] Urine Automated 1.016 1.005 - 1.030 06/14/2024 12:26 PM [facility] Appearance, Urine Dipstick Turbid(A) Clear 06/14/2024 12:26 PM [facility] Color, Urine Dipstick Yellow Yellow, Dark Yellow 06/14/2024 12:26 PM [facility] CULTURE ADDED? 06/14/2024 12:26 PM EST [facility] Urine URINE SPECIMEN / Unknown Non Blood Collection / Unknown 06/14/2024 8:06 AM EST 06/14/2024 8:52 AM EST Marline Calderon APRN URINE ORDERABLES Performing Organization Address City/[facility]/ZIP Co de Phone Number [facility] [place] [place] [address] * (ABNORMAL) Sodium (06/14/2024 8:06 AM EST) Sodium 124(L) 135 - 145 mMol/L 06/14/2024 9:59 AM EST [facility] Blood VENOUS BLOOD SPECIMEN / Unknown Venipuncture / Unknown 06/14/2024 8:06 AM EST 06/14/2024 8:53 AM EST Mariola Alfred MD CHEMISTRY ORDERABLES Performing Organization Address City/[facility]/ZIP Co de Phone Number [facility] [place] [address] * Electrolytes, urine, random (06/14/2024 8:06 AM EST) Sodium, Urine 76 mMol/L 06/14/2024 10:44 AM EST [facility] Potassium, Urine 41 mMol/L 06/14/2024 10:44 AM EST [facility] Chloride, Urine 52 mMol/L 06/14/2024 10:44 AM EST [facility] Urine URINE SPECIMEN / Unknown Non Blood Collection / Unknown 06/14/2024 8:06 AM EST 06/14/2024 8:52 AM EST Mariola Alfred MD URINE ORDERABLES [facility] [place] [place] [address] * Osmolality, urine, random (06/14/2024 8:06 AM EST) Osmolality, Urine 496 50 - 1,200 mOsm/kg 06/14/2024 10:55 AM [facility] Urine URINE SPECIMEN / Unknown Non Blood Collection / Unknown 06/14/2024 8:06 AM EST 06/14/2024 8:52 AM EST Mariola Alfred MD URINE ORDERABLES Performing Organization Address City/State/[facility] Co de Phone Number [facility] [place] [address] * (ABNORMAL) CBC (with Diff) (06/14/2024 5:27 AM EST) Pathologist [facility] White Blood Cell 8.68 4.00 - 9.50 x10(3)/mc L 06/14/2024 5:54 AM [facility] Red Blood Cell 5.08 4.58 - 5.54 x10(6)/mc L 06/14/2024 5:54 AM [facility] Hemoglobin 12.5(L) 13.7 - 16.5 g/dL 06/14/2024 5:54 AM [facility] Hematocrit 35.8(L) 40.5 - 48.5 % 06/14/2024 5:54 AM [facility] Mean Cell Volume 70.5(L) 82.9 - 93.1 fL 06/14/2024 5:54 AM [facility] Mean Cell Hemoglobin 24.6(L) 27.5 - 32.1 pg 06/14/2024 5:54 AM [facility] Mean Cell Hemoglobin Concentration 34.9 32.0 - 35.7 g/dL 06/14/2024 5:54 AM [facility] Platelet 284 145 - 357 x10(3)/mc L 06/14/2024 5:54 AM [facility] Mean Platelet Volume 9.2 7.6 - 12.9 fL 06/14/2024 5:54 AM [facility] RDW Standard Deviation 34.3(L) 36.0 - 45.0 fL 06/14/2024 5:54 AM [facility] RDW coefficient of variation 13.6 11.4 - 13.8 % 06/14/2024 5:54 AM [facility] NRBC% auto 0.0 % 06/14/2024 5:54 AM [facility] NRBC Absolute <0.01 <0.01 x10(3)/mc L 06/14/2024 5:54 AM [facility] Neutrophil % 81.7 % 06/14/2024 5:54 AM [facility] Neutrophil Absolute (ANC) - Automated 7.09(H) 1.70 - 6.10 x10(3)/mc L 06/14/2024 5:54 AM [facility] Lymph % 13.0 % 06/14/2024 5:54 AM [facility] Lymph Absolute 1.13 0.90 - 3.20 x10(3)/mc L 06/14/2024 5:54 AM [facility] Monocyte % 4.3 % 06/14/2024 5:54 AM [facility] Monocyte Absolute 0.37 0.30 - 0.90 x10(3)/mc L 06/14/2024 5:54 AM [facility] Eos % 0.2 % 06/14/2024 5:54 AM [facility] Eos Absolute <0.04 0.00 - 0.40 x10(3)/mc L 06/14/2024 5:54 AM [facility] Basophil % 0.2 % 06/14/2024 5:54 AM [facility] Baso Absolute <0.04 0.00 - 0.10 x10(3)/mc L 06/14/2024 5:54 AM [facility] Immature Gran % 0.6 % 5:54 AM [facility] Immature Gran Absolute 0.05(H) 0.00 - 0.04 x10(3)/mc L 06/14/2024 5:54 AM EST [facility] Blood VENOUS BLOOD SPECIMEN / Unknown Venipuncture / Unknown 06/14/2024 5:27 AM EST 06/14/2024 5:45 AM EST Martinez Reynolds MD HEMATOLOGY ORDERABLE S [facility] [place] [address] * Phosphorus (06/14/2024 5:27 AM EST) Phosphorus 2.8 2.5 - 4.5 mg/dL 06/14/2024 8:36 AM EST [facility] Blood VENOUS BLOOD SPECIMEN / Unknown Venipuncture / Unknown 06/14/2024 5:27 AM EST 06/14/2024 5:45 AM EST Martinez Reynolds MD CHEMISTRY ORDERABLES Performing Organization Address City/[facility]/ZIP Co de Phone Number [facility] [place] [address] * Magnesium (06/14/2024 5:27 AM EST) Pathologist [facility] Magnesium 0.83 0.69 - 1.07 mMol/L 06/14/2024 6:22 AM EST [facility] Blood VENOUS BLOOD SPECIMEN / Unknown Venipuncture / Unknown 06/14/2024 5:27 AM EST 06/14/2024 5:45 AM EST Martinez Reynolds MD CHEMISTRY ORDERABLES Performing Organization Address City/[facility]/ZIP Co de Phone Number [facility] [place] [address] * (ABNORMAL) Basic Metabolic Panel (06/14/2024 5:27 AM EST) Glucose 109 65 - 199 mg/dL 06/14/2024 6:22 AM EST [facility] Comment:Glucose Concentratio n >=200 mg/dL plus symptoms is consistent with Diabetes Mellitus. Blood Urea Nitrogen 14 10 - 20 mg/dL 06/14/2024 6:22 AM [facility] Creatinine 0.76(L) 0.80 - 1.50 mg/dL 06/14/2024 6:22 AM [facility] Sodium 124(L) 135 - 145 mMol/L 06/14/2024 6:22 AM [facility] Potassium 4.0 3.5 - 5.0 mMol/L 06/14/2024 6:22 AM [facility] Chloride 93(L) 98 - 107 mMol/L 06/14/2024 6:22 AM [facility] Carbon Dioxide 19(L) 22 - 31 mMol/L 06/14/2024 6:22 AM [facility] Anion Gap 12 5 - 15 mMol/L 06/14/2024 6:22 AM [facility] Calcium 7.9(L) 8.5 - 10.5 mg/dL 06/14/2024 6:22 AM [facility] Est Glomerular Filtration Rate - Male 122 mL/min/1. 73 m?? 06/14/2024 6:22 AM [facility] Comment: This patient's estimated GFR was [...] SPECIMEN / Unknown Venipuncture / Unknown 06/14/2024 5:27 AM EST 06/14/2024 5:45 AM EST Martinez Reynolds MD CHEMISTRY ORDERABLES [facility] [place] [address] * XR Chest One View (06/14/2024 4:02 AM EST) WORKSTATION ID [id number] RAD Anatomical Region Laterality Modality Chest N/A Digital Radiogra phy Impressions 06/14/2024 4:32 AM EST Low lung volumes with crowding of bronchovascular markings without radiographically evident acute cardiopulmonary process. Thank you for letting us participate in the care of this patient. ??If you are a health care provider and have any questions regarding this report, please contact the number below. ??For patients who have questions please contact the health child day care teacher that requested your imaging first. ? Electronically signed by: Beverley Valencia MD, [facility] ([phone]), at 06/14/2024 4:32 AM Narrative 06/14/2024 4:32 AM EST EXAMINATION: XR CHEST ONE VIEW CLINICAL HISTORY: seizure, recent covid, ??r/o infection TECHNIQUE: 1 view of the chest COMPARISON: September 14, 2017 FINDINGS: Low lung volumes. Crowding of bronchovascular markings. No consolidation. No radiographically evident pneumothorax or pleural effusion. Allowing for patient position and technique, cardiac and mediastinal contours are within normal limits. No displaced rib fracture. Procedure Note Beverley Valencia MD - 06/14/2024 EXAMINATION: XR CHEST ONE VIEW CLINICAL HISTORY: seizure, recent covid, r/o infection TECHNIQUE: 1 view of the chest COMPARISON: September 14, 2017 FINDINGS: Low lung volumes. Crowding of bronchovascular markings. No consolidation.No radiographically evident pneumothorax or pleural effusion. Allowing forpatient position and technique, cardiac and mediastinal contours are withinnormal limits. No displaced rib fracture. IMPRESSION Low lung volumes with crowding of bronchovascular markings without radiographically evident acute cardiopulmonary process. Thank you for letting us participate in the care of this patient. If youare a health care provider and have any questions regarding this report,please contact the number below. For patients who have questions please contactthe health child day care teacher that requested your imaging first. Electronically signed by: Beverley Valencia MD, [facility]([phone]), at 06/14/2024 4:32 AM Mariola Alfred MD IMG DX ORDERABLES * (ABNORMAL) Sodium (06/14/2024 3:32 AM EST) Pathologist [facility] Sodium 122(L) 135 - 145 mMol/L 06/14/2024 4:02 AM EST [facility] Blood VENOUS BLOOD SPECIMEN / Unknown Venipuncture / Unknown 06/14/2024 3:32 AM EST 06/14/2024 3:37 AM EST Mariola Alfred MD CHEMISTRY ORDERABLES [facility] [place] [address] * (ABNORMAL) Blood Gas, Venous POC (06/14/2024 1:35 AM EST) pH, Venous 7.39 7.32 - 7.42 06/14/2024 1:36 AM EST [facility] PCO2, Venous 37(L) 38 - 58 mmHg 06/14/2024 1:36 AM EST [facility] PO2, Venous 27 16 - 65 mmHg 06/14/2024 1:36 AM EST [facility] Bicarbonate, Venous 21.9(L) 22 - 31 mmol/L 06/14/2024 1:36 AM [facility] Base Excess, Venous -3.1(L) 1.9 - 4.5 mmol/L 06/14/2024 1:36 AM EST [facility] Hemoglobin, Venous 13.4(L) 13.7 - 16.5 g/dL 06/14/2024 1:36 AM [facility] Oxyhemoglobin, Venous 46.8 % 06/14/2024 1:36 AM [facility] Carboxyhemoglobin , Venous 0.7 % 06/14/2024 1:36 AM [facility] Comment: Nonsmokers: 0.5-1.5% COHB ?? Smokers: Variable ??but usually less than 10% ?? Toxic: 20-30% COHB ?? Lethal: Greater than 60% COHB Methemoglobin, Venous 0.3 <=1.5 % 06/14/2024 1:36 AM [facility] Sodium, Venous 123(L) 135 - 145 mmol/L 06/14/2024 1:36 AM [facility] Potassium, Venous 3.7 3.5 - 5.0 mmol/L 06/14/2024 1:36 AM [facility] Chloride, Venous 92(L) 98 - 107 mmol/L 06/14/2024 1:36 AM [facility] Glucose, Venous 85 65 - 199 mg/dL 06/14/2024 1:36 AM [facility] Comment:Glucose Concentratio n >=200 mg/dL plus symptoms is consistent with Diabetes Mellitus. Lactate, Venous 2.3(H) 0.5 - 2.2 mmol/L 06/14/2024 1:36 AM EST [facility] Ionized Calcium, Venous 1.10(L) 1.15 - 1.33 mmol/L 06/14/2024 1:36 AM [facility] Blood VENOUS BLOOD SPECIMEN / Unknown 06/14/2024 1:35 AM EST 06/14/2024 1:36 AM EST Mariola Alfred MD POINT OF CARE TEST O RDERABLES [facility] [place] [place] [address] * POC, GLUCOSE (06/14/2024 1:06 AM EST) Glucometer, POC 113 65 - 199 mg/dL 06/14/2024 1:06 AM EST [facility] Comment:Supplemental ranges: <140 mg/dL before meals <180 mg/dL all other times of the day. Blood CAPILLARY BLOOD / Unknown 06/14/2024 1:06 AM EST 06/14/2024 1:06 AM EST Mariola Alfred MD POINT OF CARE TEST O RDERABLES Performing Organization Address City/[facility]/ZIP Co de Phone Number [facility] [place] [address] * EKG 12 Lead (06/14/2024 1:04 AM EST) Ventricular rate 85 BPM MUSE SYSTEM Atrial Rate 85 BPM MUSE SYSTEM P-R Interval 182 ms MUSE SYSTEM QRS Duration 94 ms MUSE SYSTEM Q-T Interval 388 ms MUSE SYSTEM QTC Calculated (Bezet) 461 ms MUSE SYSTEM Calculated P Norman 35 degrees MUSE SYSTEM Calculated R Norman 57 degrees MUSE SYSTEM Calculated T Norman 48 degrees MUSE SYSTEM INTERPRETATION Normal sinus rhythm Normal ECG When compared with ECG of 01-MAR-2018 09:20, Nonspecific T wave abnormality no longer evident in Inferior leads T wave inversion no longer evident in Lateral leads I personally reviewed the tracing and edited the fellows interpretation Confirmed by fellow Rosalie Obrien ([id number]) on 2024 9:31:30 PM Confirmed by Hannah Marin MD ([id number]) on 06/17/2024 11:43:44 AM MUSE SYSTEM 06/14/2024 1:04 AM EST 06/17/2024 11:43 AM EST Mariola Alfred MD ECG ORDERABLES Performing Organization Address City/[facility]/ZIP Co de Phone Number MUSE SYSTEM * Scan, Peripheral Blood (06/14/2024 1:03 AM EST) Pathologist [facility] RBC Morphology Abnormal 06/14/2024 2:00 AM EST [facility] Platelet Estimate Normal Normal 06/14/2024 2:00 AM [facility] Microcyte 1-5 /HPF 06/14/2024 2:00 AM [facility] Tear Cell 1-5 /HPF 06/14/2024 2:00 AM [facility] Blood VENOUS BLOOD SPECIMEN / Unknown Venipuncture / Unknown 06/14/2024 1:03 AM EST 06/14/2024 1:08 AM EST Mariola Alfred MD HEMATOLOGY ORDERABLE S [facility] [place] [address] * (ABNORMAL) CBC (with Diff) (06/14/2024 1:03 AM EST) White Blood Cell 10.38(H) 4.00 - 9.50 x10(3)/mc L 06/14/2024 2:00 AM [facility] Red Blood Cell 5.05 4.58 - 5.54 x10(6)/mc L 06/14/2024 2:00 AM [facility] Hemoglobin 12.2(L) 13.7 - 16.5 g/dL 06/14/2024 2:00 AM [facility] Hematocrit 35.5(L) 40.5 - 48.5 % 06/14/2024 2:00 AM [facility] Mean Cell Volume 70.3(L) 82.9 - 93.1 fL 06/14/2024 2:00 AM [facility] Mean Cell Hemoglobin 24.2(L) 27.5 - 32.1 pg 06/14/2024 2:00 AM [facility] Mean Cell Hemoglobin Concentration 34.4 32.0 - 35.7 g/dL 06/14/2024 2:00 AM [facility] Platelet 276 145 - 357 x10(3)/mc L 06/14/2024 2:00 AM [facility] Mean Platelet Volume 9.0 7.6 - 12.9 fL 06/14/2024 2:00 AM [facility] RDW Standard Deviation 33.6(L) 36.0 - 45.0 fL 06/14/2024 2:00 AM [facility] RDW coefficient of variation 13.4 11.4 - 13.8 % 06/14/2024 2:00 AM [facility] NRBC% auto 0.0 % 06/14/2024 2:00 AM [facility] NRBC Absolute <0.01 <0.01 x10(3)/mc L 06/14/2024 2:00 AM [facility] Neutrophil % 85.7 % 06/14/2024 2:00 AM [facility] Neutrophil Absolute (ANC) - Automated 8.90(H) 1.70 - 6.10 x10(3)/mc L 06/14/2024 2:00 AM [facility] Lymph % 8.4 % 06/14/2024 2:00 AM [facility] Lymph Absolute 0.87(L) 0.90 - 3.20 x10(3)/mc L 06/14/2024 2:00 AM [facility] Monocyte % 4.4 % 06/14/2024 2:00 AM [facility] Monocyte Absolute 0.46 0.30 - 0.90 x10(3)/mc L 06/14/2024 2:00 AM [facility] Eos % 0.5 % 06/14/2024 2:00 AM [facility] Eos Absolute 0.05 0.00 - 0.40 x10(3)/mc L 06/14/2024 2:00 AM [facility] Basophil % 0.2 % 06/14/2024 2:00 AM [facility] Baso Absolute <0.04 0.00 - 0.10 x10(3)/mc L 06/14/2024 2:00 AM [facility] Immature Gran % 0.8 % 2:00 AM EST [facility] Immature Gran Absolute 0.08(H) 0.00 - 0.04 x10(3)/mc L 06/14/2024 2:00 AM EST [facility] Blood VENOUS BLOOD SPECIMEN / Unknown Venipuncture / Unknown 06/14/2024 1:03 AM EST 06/14/2024 1:08 AM EST Martinez Reynolds MD HEMATOLOGY ORDERABLE S [facility] [place] [address] * (ABNORMAL) Phosphorus (06/14/2024 1:03 AM EST) Phosphorus 1.5(L) 2.5 - 4.5 mg/dL 06/14/2024 1:46 AM EST [facility] Blood VENOUS BLOOD SPECIMEN / Unknown Venipuncture / Unknown 06/14/2024 1:03 AM EST 06/14/2024 1:08 AM EST Martinez Reynolds MD CHEMISTRY ORDERABLES Performing Organization Address City/[facility]/ZIP Co de Phone Number [facility] [place] [address] * Magnesium (06/14/2024 1:03 AM EST) Magnesium 0.90 0.69 - 1.07 mMol/L 06/14/2024 1:46 AM EST [facility] Blood VENOUS BLOOD SPECIMEN / Unknown Venipuncture / Unknown 06/14/2024 1:03 AM EST 06/14/2024 1:08 AM EST Martinez Reynolds MD CHEMISTRY ORDERABLES Performing Organization Address City/[facility]/ZIP Co de Phone Number [facility] [place] [address] * (ABNORMAL) Basic Metabolic Panel (06/14/2024 1:03 AM EST) Glucose 95 65 - 199 mg/dL 06/14/2024 1:49 AM [facility] Comment:Glucose Concentratio n >=200 mg/dL plus symptoms is consistent with Diabetes Mellitus. Blood Urea Nitrogen 14 10 - 20 mg/dL 06/14/2024 1:49 AM [facility] Creatinine 0.80 0.80 - 1.50 mg/dL 06/14/2024 1:49 AM [facility] Sodium 123(L) 135 - 145 mMol/L 06/14/2024 1:49 AM [facility] Potassium 3.7 3.5 - 5.0 mMol/L 06/14/2024 1:49 AM [facility] Chloride 91(L) 98 - 107 mMol/L 06/14/2024 1:49 AM [facility] Carbon Dioxide 19(L) 22 - 31 mMol/L 06/14/2024 1:49 AM [facility] Anion Gap 13 5 - 15 mMol/L 06/14/2024 1:49 AM [facility] Calcium 8.1(L) 8.5 - 10.5 mg/dL 06/14/2024 1:49 AM [facility] Est Glomerular Filtration Rate - Male 120 mL/min/1. 73 m?? 06/14/2024 1:49 AM [facility] Comment: This patient's estimated GFR was [...] 1:03 AM EST 06/14/2024 1:08 AM EST Martinez Reynolds MD CHEMISTRY ORDERABLES Performing Organization Address [facility] Co de Phone Number [facility] [place] [address] * (ABNORMAL) Osmolality (06/14/2024 1:03 AM EST) Osmolality 259(L) 275 - 295 mOsm/kg 06/14/2024 1:40 AM EST [facility] Blood VENOUS BLOOD SPECIMEN / Unknown Venipuncture / Unknown 06/14/2024 1:03 AM EST 06/14/2024 1:08 AM EST Mariola Alfred MD CHEMISTRY ORDERABLES Performing Organization Address [facility] [place] [address] * T3 Total (06/14/2024 1:03 AM EST) T3 Total 87 80 - 200 ng/dL 06/14/2024 1:46 AM EST [facility] Blood VENOUS BLOOD SPECIMEN / Unknown Venipuncture / Unknown 06/14/2024 1:03 AM EST 06/14/2024 1:08 AM EST Mariola Alfred MD CHEMISTRY ORDERABLES Performing Organization Address [facility] de Phone Number [facility] [place] [place] [address] * T4, free (06/14/2024 1:03 AM EST) Free T4 1.37 0.93 - 1.70 ng/dL 06/14/2024 1:46 AM EST [facility] Blood VENOUS BLOOD SPECIMEN / Unknown Venipuncture / Unknown 06/14/2024 1:03 AM EST 06/14/2024 1:08 AM EST Mariola Alfred MD CHEMISTRY ORDERABLES [facility] [address] [place] [address] * Zonisamide level (06/14/2024 1:03 AM EST) Zonisamide Lvl November 17 10 - 40 mcg/mL 06/16/2024 9:22 PM EST [facility]F [facility] Comment: ADDITIONAL INFORMATION This test was developed and its performance characteristics determined by [facility] in a manner consistent with CLIA requirements. This test has not been cleared or approved by the U.S. Food and Drug Administration. Blood VENOUS BLOOD SPECIMEN / Unknown Venipuncture / Unknown 06/14/2024 1:03 AM EST 06/14/2024 1:08 AM EST Narrative REF LAB [facility] 06/16/2024 9:22 PM EST Test Performed by: [place] [address] Ring Packer: Xavier Velásquez Ph.D.; CLIA# [id number] Mariola Alfred MD LAB SEND OUT ORDERAB LES REF LAB [address] documented in this encounter Visit Diagnoses Diagnosis Hyponatremia- Primary Hyposmolality and/or hyponatremia Sleep disorder Sleep disturbance, unspecified Hyponatremia Hyposmolality and/or hyponatremia Agitation Other and unspecified special symptom or syndrome, not elsewhere classified documented in this encounter Admitting Diagnoses Diagnosis Hyponatremia Hyposmolality and/or hyponatremia documented in this encounter Administered Medications Inactive Administered Medications - up to 3 most recent administrations Medication Order MAR Action Action Date Dose Rate Site acetaminophen (Tylenol) tablet 975 mg 975 mg, Oral, EVERY 6 HOURS PRN, Starting on Jo Ann 06/17/24 at 0445, Until 06/21/24 at 1707, Pain, - Maximum dose of acetaminophen is 4,000 mg from all sources in 24 hours. - Unless otherwise specified, when ordered PRN for pain, acetaminophen should be given first if other PRN pain medications are ordered., Routine Given 06/20/2024 8:14 PM EST 975 mg Given 06/20/2024 12:27 AM EST 975 mg Given 06/19/2024 4:14 PM EST 975 mg acetylcysteine (Mucomyst) 200 mg/mL (20 %) oral solution 600 mg 600 mg, Oral, 2 TIMES DAILY, First dose on Fri06/19/24 at 1145, Until Discontinued, Routine Given 06/20/2024 8:15 PM EST 600 mg Given 06/19/2024 9:48 PM EST 600 mg aspirin chewable tablet 81 mg 81 mg, Oral, DAILY, First dose on Fri06/14/24 at 0900, Until Discontinued, Routine Given 06/21/2024 9:04 AM EST 81 mg Given 06/20/2024 8:32 AM EST 81 mg Given 06/19/2024 9:43 AM EST 81 mg atorvastatin (Lipitor) tablet 40 mg 40 mg, Oral, EVERY EVENING, First dose on Fri06/14/24 at 1700, Until Discontinued, Routine Given 06/20/2024 5:56 PM EST 40 mg Given 06/19/2024 4:14 PM EST 40 mg Given 06/18/2024 4:08 PM EST 40 mg baclofen (Lioresal) tablet 20 mg 20 mg, Oral, 3 TIMES DAILY, First dose (after last modification) on Fri06/14/24 at 0900, Until Discontinued, Routine Given 06/21/2024 9:04 AM EST 20 mg Given 06/20/2024 8:14 PM EST 20 mg Given 06/20/2024 3:48 PM EST 20 mg bisacodyL (Dulcolax) suppository 10 mg 10 mg, Rectal, DAILY PRN, Starting on Fri06/16/24 at 1400, Until Fri06/21/24 at 1707, Constipation, Give if no BM within last 24 hr and rectal fullness is reported or assessed. Give concomitantly with any scheduled bowel medications ordered. , Routine Given 06/17/2024 6:26 PM EST 10 mg bisacodyL EC (Dulcolax) tablet 10 mg 10 mg, Oral, 2 TIMES DAILY PRN, Starting on Fri06/16/24 at 1400, Until Fri06/21/24 at 1707, Constipation, Give if no BM after 24 hr after prior interventions. BM expected in 6-8 hours. If BM desired sooner, use next ordered agent. Give concomitantly with any scheduled bowel medications ordered., Routine Given 06/17/2024 5:59 PM EST 10 mg desmopressin (Ddavp) tablet 0.1 mg 0.1 mg, Oral, DAILY, First dose on Fri06/14/24 at 0900, Until Discontinued, Routine Given 06/21/2024 9:01 AM EST 0.1 mg Given 06/20/2024 8:35 AM EST 0.1 mg Given 06/19/2024 9:44 AM EST 0.1 mg desmopressin (Ddavp) tablet 0.15 mg 0.15 mg, Oral, NIGHTLY, First dose on Fri06/14/24 at 2100, Until Discontinued, Routine Given 06/20/2024 8:17 PM EST 0.15 mg Given 06/19/2024 8:33 PM EST 0.15 mg Given 06/18/2024 9:42 PM EST 0.15 mg dexmedeTOMIDine (Precedex) (4 mcg/mL) in sodium chloride 0.9% 100 mL infusion 0-1.7 mcg/kg/hr ? 83.4 kg Adjusted weight (0-35.445 mL/hr, rounded to 0-35.4 mL/hr), Intravenous, CONTINUOUS, Starting on Fri06/14/24 at 1130, Until Fri06/16/24 at 0458, Titrate to sedation level of RASS Goal (-)1 to 0. Start at 0.4 mcg/kg/hr. Increase/decrease by 0.4 mcg/kg/hr every 15 minutes until goal reached. Once stable, reassess patient every 30 minutes. Do not exceed 1.7 mcg/kg/hr. Change rate only after assessing and documenting RASS. Reassess sedation scores within 30 minutes after every rate change. If under sedated, increase rate by 0.4 mcg/kg/hr. If over sedated, hold sedative until target RASS (-)1 to 0 achieved and then restart at 50% of previous rate. Call powerhouse helper if goal not achieved at maximum rate. If SAT is ordered, and if patient meets criteria for Spontaneous Awakening Trial, titrate per protocol., Routine, Please indicate the name & specialty of the Attending Provider who authorized the use of this medication: Tommy Stanley Rate/Dose Change 2024 7:30 AM EST 0.05 mcg/kg/hr 1 mL/hr Rate/Dose Change 2024 5:17 AM EST 0.3 mcg/kg/hr 6.3 mL/hr Rate/Dose Change 2024 1:57 AM EST 0.3 mcg/kg/hr 6.3 mL/hr divalproex EC (Depakote) tablet 250 mg 250 mg, Oral, 2 TIMES DAILY, First dose on Fri06/17/24 at 1330, Until Discontinued, DO NOT SPLIT, CRUSH OR OPEN, Routine Given 06/17/2024 8:12 PM EST 250 mg Given 06/17/2024 5:24 PM EST 250 mg gadoterate meglumine (Dotarem) (0.5 mMol/mL) injection solution 0-100 mL 0-100 mL, Intravenous, ONCE PRN, 1 dose, Starting on Fri06/15/24 at 1502, Until Fri06/15/24 at 1556, Per Protocol, Radiology Contrast, Routine Given 2024 3:56 PM EST 20 mLs haloperidoL lactate (Haldol) (5 mg/mL) injection 2 mg 2 mg, Intravenous, ONCE, 1 dose, On Fri06/17/24 at 0915, If medication ordered subcutaneously, do not administer more than 3 mL as a single injection., Routine Given 06/17/2024 9:05 AM EST 2 mg haloperidoL lactate (Haldol) (5 mg/mL) injection 2 mg 2 mg, Intramuscular, 2 TIMES DAILY PRN, Starting on Fri06/18/24 at 0841, Until Fri06/21/24 at 1707, Agitation, Use as second agent after Quetiapine PRN, If medication ordered subcutaneously, do not administer more than 3 mL as a single injection., Routine Given 06/20/2024 11:03 PM EST 2 mg Given 06/20/2024 12:30 AM EST 2 mg Given 06/19/2024 12:21 PM EST 2 mg haloperidoL lactate (Haldol) (5 mg/mL) injection 5 mg 5 mg, Intramuscular, 2 TIMES DAILY PRN, Starting on Fri06/17/24 at 1223, Until Fri06/18/24 at 0841, Agitation, Use as second agent after Quetiapine PRN, If medication ordered subcutaneously, do not administer more than 3 mL as a single injection., Routine Given 06/17/2024 11:41 PM EST 5 mg heparin (porcine) (5,000 units/1 mL) subcutaneous injection 5,000 Units 5,000 Units, Subcutaneous, EVERY 12 HOURS SCHEDULED (2 times per day), First dose on Fri06/14/24 at 0200, Until Discontinued, Routine Given 06/20/2024 8:14 PM EST 5,000 Units Given 06/20/2024 8:33 AM EST 5,000 Units Given 06/19/2024 8:30 PM EST 5,000 Units hydrocortisone (Cortef) tablet 10 mg 10 mg, Oral, DAILY BEFORE DINNER, First dose on Fri06/14/24 at 1630, Until Discontinued, Routine Given 06/17/2024 5:24 PM EST 10 mg Given 06/16/2024 3:41 PM EST 10 mg Given 2024 6:59 PM EST 10 mg hydrocortisone (Cortef) tablet 10 mg 10 mg, Oral, DAILY BEFORE DINNER, First dose (after last modification) on Fri06/18/24 at 1630, Until Discontinued, Routine Given 06/20/2024 3:49 PM EST 10 mg Given 06/19/2024 4:14 PM EST 10 mg hydrocortisone (Cortef) tablet 20 mg 20 mg, Oral, EVERY MORNING, First dose on Fri06/14/24 at 0900, Until Discontinued, Routine Given 06/16/2024 9:24 AM EST 20 mg Given 2024 9:32 AM EST 20 mg Given 06/14/2024 9:24 AM EST 20 mg hydrocortisone (Cortef) tablet 20 mg 20 mg, Oral, EVERY MORNING, First dose (after last reorder) on Fri06/18/24 at 1245, Until Discontinued, Routine Given 06/21/2024 9:00 AM EST 20 mg hydrocortisone sod succ (pf) (Solu-CORTEF) (100 mg/2 mL) injection 10 mg 10 mg, Intravenous, DAILY BEFORE DINNER, First dose on Fri06/18/24 at 1630, Until Discontinued, Give if unable to take orally Given 06/18/2024 4:09 PM EST 10 mg hydrocortisone sod succ (pf) (Solu-CORTEF) (100 mg/2 mL) injection 20 mg 20 mg, Intravenous, EVERY MORNING, First dose on Fri06/18/24 at 1245, Until Discontinued, Give if unable to receive orally Given 06/20/2024 8:33 AM EST 20 mg Given 06/19/2024 9:45 AM EST 20 mg Given 06/18/2024 12:18 PM EST 20 mg lactulose (Chronulac) (0.67 gram/mL) oral liquid 20 g 20 g, Oral, DAILY PRN, Starting on Fri06/16/24 at 1400, Until Fri06/21/24 at 1707, Constipation, Give if no BM 24 hr after prior interventions or if BM is desired within 2 hr. Give concomitantly with any scheduled bowel medications ordered, Routine lactulose (Chronulac) (0.67 gram/mL) oral liquid 20 g 20 g, Oral, DAILY PRN, Starting on Fri06/16/24 at 1400, Until Fri06/21/24 at 1707, Constipation, Give an additional (2nd) dose of lactulose 2 hr after 1st dose if still no BM. Disregard if 1st dose of lactulose not ordered. Give concomitantly with any scheduled bowel medications ordered. , Routine levothyroxine (Synthroid) tablet 200 mcg 200 mcg, Oral, DAILY, First dose on Fri06/14/24 at 0600, Until Discontinued, Routine Given 06/21/2024 5:50 AM EST 200 mcg Given 06/20/2024 7:01 AM EST 200 mcg Given 06/19/2024 6:53 AM EST 200 mcg lidocaine (Glydo) 2 % gel 11 mL 11 mL, INTRA-URETHRAL, ONCE, 1 dose, On Fri06/15/24 at 1830, STAT Given 2024 6:43 PM EST 11 mLs LORazepam (Ativan) (2 mg/mL) injection 0.26 mg 0.26 mg (rounded from 0.25 mg), Intravenous, ONCE, 1 dose, On Fri06/17/24 at 1100, Routine Given 06/17/2024 11:56 AM EST 0.26 mg LORazepam (Ativan) (2 mg/mL) injection 2 mg 2 mg, Intravenous, ONCE, 1 dose, On Fri06/17/24 at 0000, STAT Given 06/16/2024 11:46 PM EST 2 mg magnesium citrate oral liquid 296 mL 296 mL, Oral, ONCE PRN, 1 dose, Starting on Fri06/16/24 at 1400, Until Fri06/21/24 at 1707, Constipation, Give if no BM 2 hr after previous interventions. If 2 hr after mag citrate there is still no BM, see order for tap water enema, if placed. Give concomitantly with any scheduled bowel medications ordered., Routine magnesium sulfate 2 g in sterile water 50 mL infusion 2 g, Intravenous, ONCE, 1 dose, On Fri06/15/24 at 0130, Administer over 120 Minutes New Bag 2024 1:51 AM EST 2 g 25 mL/hr melatonin tablet 10.5 mg 10.5 mg (rounded from 10 mg), Oral, NIGHTLY, First dose (after last modification) on Fri06/18/24 at 1800, Until Discontinued, Routine Given 06/20/2024 5:56 PM EST 10.5 mg Given 06/19/2024 5:34 PM EST 10.5 mg melatonin tablet 9 mg 9 mg, Oral, NIGHTLY, First dose on Fri06/14/24 at 2100, Until Discontinued, Routine Given 06/17/2024 8:12 PM EST 9 mg Given 06/16/2024 8:11 PM EST 9 mg Given 2024 8:25 PM EST 9 mg montelukast (Singulair) tablet 10 mg 10 mg, Oral, DAILY, First dose on Fri06/14/24 at 0900, Until Discontinued, Routine Given 06/21/2024 9:04 AM EST 10 mg Given 06/20/2024 8:33 AM EST 10 mg Given 06/19/2024 9:46 AM EST 10 mg ondansetron (pf) (Zofran) (2 mg/mL) injection 4 mg 4 mg, Intravenous, EVERY 8 HOURS PRN, Starting on 06/20/24 at 0028, Until Fri06/21/24 at 1707, Nausea, Vomiting Given 06/20/2024 12:34 AM EST 4 mg ondansetron (Zofran) tablet 4 mg 4 mg, Oral, EVERY 8 HOURS PRN, Starting on 06/20/24 at 0028, Until Fri06/21/24 at 1707, Nausea, Vomiting, Routine pantoprazole (Protonix) injection 40 mg 40 mg, Intravenous, DAILY, First dose on Fri06/18/24 at 1200, Until Discontinued, Reconstitute with 10 mL of normal saline to a concentration of 4 mg/mL and inject slowly over 2 minutes. Given 06/20/2024 8:33 AM EST 40 mg Given 06/19/2024 9:47 AM EST 40 mg Given 06/18/2024 11:42 AM EST 40 mg pantoprazole EC (Protonix) tablet 40 mg 40 mg, Oral, DAILY, First dose on Fri06/14/24 at 0900, Until Discontinued, DO NOT CRUSH OR OPEN, Routine Given 06/17/2024 8:08 AM EST 40 mg Given 06/16/2024 9:23 AM EST 40 mg Given 2024 9:39 AM EST 40 mg pantoprazole EC (Protonix) tablet 40 mg 40 mg, Oral, DAILY, First dose on Fri06/21/24 at 0930, Until Discontinued, DO NOT CRUSH OR OPEN, Routine polyethylene glycoL (Miralax) packet 17 g 17 g, Oral, DAILY PRN, Starting on Fri06/16/24 at 1400, Until Fri06/21/24 at 1707, Constipation, Give if no BM within last 24 hr. Give concomitantly with any scheduled bowel medications ordered. , Routine polyethylene glycoL (Miralax) packet 17 g 17 g, Oral, DAILY, First dose on Fri06/16/24 at 1345, Until Discontinued, Routine Given 06/17/2024 8:09 AM EST 17 g Given 06/16/2024 1:48 PM EST 17 g polyethylene glycoL (Miralax) packet 17 g 17 g, Oral, 2 TIMES DAILY, First dose (after last modification) on Fri06/17/24 at 2100, Until Discontinued, Routine Given 06/20/2024 8:13 PM EST 17 g Given 06/19/2024 8:45 PM EST 17 g Given 06/18/2024 9:50 PM EST 17 g potassium, sodium phosphates (Neutra-Phos) 280-160-250 mg oral packet 3 g 3 g, Oral, ONCE, 1 dose, On Fri06/14/24 at 0245, Take with full glass of water, Routine Given 06/14/2024 2:30 AM EST 3 g prazosin (Minipress) capsule 2 mg 2 mg, Oral, NIGHTLY, First dose on Fri06/14/24 at 2100, Until Discontinued, Routine Given 06/20/2024 8:41 PM EST 2 mg Given 06/19/2024 8:36 PM EST 2 mg Given 06/18/2024 9:51 PM EST 2 mg pyridoxine (Vitamin B6) (Vitamin B6) tablet 50 mg 50 mg, Oral, DAILY, First dose on Fri06/16/24 at 1400, Until Discontinued, Routine Given 06/21/2024 9:01 AM EST 50 mg Given 06/20/2024 8:35 AM EST 50 mg Given 06/19/2024 9:48 AM EST 50 mg QUEtiapine (Seroquel) tablet 100 mg 100 mg, Oral, 2 TIMES DAILY, First dose on Fri06/14/24 at 0900, Until Discontinued, Routine Given 06/17/2024 8:07 AM EST 100 mg Given 06/16/2024 8:11 PM EST 100 mg Given 06/16/2024 9:23 AM EST 100 mg QUEtiapine (Seroquel) tablet 100 mg 100 mg, Oral, 2 TIMES DAILY PRN, Starting on Fri06/14/24 at 0130, Until Fri06/17/24 at 1229, Agitation, Routine Given 06/16/2024 9:53 PM EST 100 mg Given 06/16/2024 2:22 AM EST 100 mg Given 2024 5:41 AM EST 100 mg QUEtiapine (Seroquel) tablet 100 mg 100 mg, Oral, 2 TIMES DAILY PRN, Starting on Fri06/17/24 at 1229, Until Fri06/18/24 at 0814, Agitation, Use as first agent for agitation, then haldol, Routine Given 06/17/2024 10:55 PM EST 100 mg QUEtiapine (Seroquel) tablet 100 mg 100 mg, Oral, 2 TIMES DAILY PRN, Starting on Fri06/18/24 at 1515, Until Fri06/21/24 at 1707, Agitation, Use before IM Haldol, Routine Given 06/20/2024 8:14 PM EST 100 mg Given 06/19/2024 3:11 PM EST 100 mg Given 06/19/2024 12:05 PM EST 100 mg QUEtiapine XR (SeroqueL XR) tablet 150 mg 150 mg, Oral, NIGHTLY, First dose (after last modification) on Jo Ann 06/17/24 at 2100, Until Discontinued, DO NOT CRUSH OR OPEN Given 06/17/2024 8:14 PM EST 150 m g QUEtiapine XR (SeroqueL XR) tablet 50 mg 50 mg, Oral, DAILY, First dose on 06/19/24 at 1130, Until Discontinued, DO NOT CRUSH OR OPEN, Routine Given 06/21/2024 9:01 AM EST 50 mg Given 06/20/2024 8:35 AM EST 50 mg Given 06/19/2024 11:29 AM EST 50 mg senna-docusate (Pericolace) 8.6-50 mg per tablet 2 tablet 2 tablet, Oral, 2 TIMES DAILY, First dose on 06/16/24 at 1430, Until Discontinued, Hold for loose stool. , Routine Given 06/20/2024 8:14 PM EST 2 tablets Given 06/19/2024 8:45 PM EST 2 tablets Given 06/18/2024 9:44 PM EST 2 tablets sodium chloride 3 % infusion 50 mL 50 mL, Intravenous, CONTINUOUS, Starting on 06/14/24 at 0430, Until 06/14/24 at 0902, Routine New Bag 06/14/2024 4:56 AM EST 50 mLs traZODone (Desyrel) tablet 100 mg 100 mg, Oral, NIGHTLY, First dose on 06/14/24 at 2100, Until Discontinued, Routine Given 06/20/2024 8:14 PM EST 100 mg Given 06/19/2024 8:30 PM EST 100 mg Given 06/17/2024 8:12 PM EST 100 mg zonisamide (Zonegran) capsule 400 mg 400 mg, Oral, NIGHTLY, First dose (after last modification) on 06/14/24 at 0430, Until Discontinued, DO NOT SPLIT, CRUSH OR OPEN, Routine Given 06/20/2024 8:41 PM EST 400 mg Given 06/19/2024 8:35 PM EST 400 mg Given 06/18/2024 9:47 PM EST 400 mg documented in this encounter Active and Recently Administered Medications Times are shown in EST. Scheduled Medication Order 06/19/2024 06/20/2024 06/21/2024 acetylcysteine (Mucomyst) 200 mg/mL (20 %) oral solution 600 mg 600 mg, Oral, 2 TIMES DAILY, First dose on Fri06/19/24 at 1145, Until Discontinued, Routine 1145 (Not Given - Provider: Bell Amezcua RN - Reason: Medication not available)2148 (Given - Provider: Erik Dumont RN) 0900 (Not Given - Provider: Bell Amezcua RN - Reason: Patient/family refused - Comment: pt agitated)2014 (Given - Provider: Erik Dumont RN) 0900 (Not Given - Provider: Bell Amezcua RN - Reason: Patient/family refused - Comment: pt agitated) aspirin chewable tablet 81 mg 81 mg, Oral, DAILY, First dose on Fri06/14/24 at 0900, Until Discontinued, Routine 0943 (Given - Provider: Bell Amezcua RN) 0832 (Given - Provider: Bell Amezcua RN) 0904 (Given - Provider: Bell Amezcua RN) atorvastatin (Lipitor) tablet 40 mg 40 mg, Oral, EVERY EVENING, First dose on Fri06/14/24 at 1700, Until Discontinued, Routine 1614 (Given - Provider: Bell Amezcua RN) 1756 (Given - Provider: Bell Amezcua RN) baclofen (Lioresal) tablet 20 mg 20 mg, Oral, 3 TIMES DAILY, First dose (after last modification) on Fri06/14/24 at 0900, Until Discontinued, Routine 0944 (Given - Provider: Bell Amezcua RN)1511 (Given - Provider: Bell Amezcua RN)2030 (Given - Provider: Erik Dumont RN) 0833 (Given - Provider: Bell Amezcua RN)1548 (Given - Provider: Bell Amezcua RN)2013 (Given - Provider: Erik Dumont RN) 0904 (Given - Provider: Bell Amezcua RN)1500 (Due) desmopressin (Ddavp) tablet 0.1 mg 0.1 mg, Oral, DAILY, First dose on Fri06/14/24 at 0900, Until Discontinued, Routine 0944 (Given - Provider: Bell Amezcua RN) 0835 (Given - Provider: Bell Amezcua RN) 0901 (Given - Provider: Bell Amezcua RN) desmopressin (Ddavp) tablet 0.15 mg 0.15 mg, Oral, NIGHTLY, First dose on Fri06/14/24 at 2100, Until Discontinued, Routine 2032 (Given - Provider: Erik Dumont RN) 2016 (Given - Provider: Erik Dumont RN) heparin (porcine) (5,000 units/1 mL) subcutaneous injection 5,000 Units 5,000 Units, Subcutaneous, EVERY 12 HOURS SCHEDULED (2 times per day), First dose on Fri06/14/24 at 0200, Until Discontinued, Routine 0945 (Given - Provider: Bell Amezcua RN)2029 (Given - Provider: Erik Dmuont RN) 0833 (Given - Provider: Bell Amezcua RN)2013 (Given - Provider: Erik Dumont RN) 0904 (Not Given - Provider: Bell Amezcua RN - Reason: Patient/family refused - Comment: pt agitated) hydrocortisone (Cortef) tablet 10 mg(Linked Group 1) 10 mg, Oral, DAILY BEFORE DINNER, First dose (after last modification) on Fri06/18/24 at 1630, Until Discontinued, Routine 1614 (Given - Provider: Bell Amezcua RN) 1549 (Given - Provider: Bell Amezcua RN) hydrocortisone (Cortef) tablet 20 mg(Linked Group 2) 20 mg, Oral, EVERY MORNING, First dose (after last reorder) on Fri06/18/24 at 1245, Until Discontinued, Routine 0945 (See Alternative - Provider: Bell Amezcua RN) 0833 (See Alternative - Provider: Bell Amezcua RN) 0900 (Given - Provider: Bell Amezcua RN) hydrocortisone sod succ (pf) (Solu-CORTEF) (100 mg/2 mL) injection 20 mg(Linked Group 2) 20 mg, Intravenous, EVERY MORNING, First dose on Fri06/18/24 at 1245, Until Discontinued, Give if unable to receive orally 0945 (Given - Provider: Bell Amezcua RN) 0833 (Given - Provider: Bell Amezcua RN) 0900 (See Alternative - Provider: Bell Amezcua RN) levothyroxine (Synthroid) tablet 200 mcg 200 mcg, Oral, DAILY, First dose on Fri06/14/24 at 0600, Until Discontinued, Routine 0653 (Given - Provider: Tomás Priest RN) 0701 (Given - Provider: Erik Dumont, HEATHER) 0550 (Given - Provider: Erik Dumont RN) melatonin tablet 10.5 mg 10.5 mg (rounded from 10 mg), Oral, NIGHTLY, First dose (after last modification) on Fri06/18/24 at 1800, Until Discontinued, Routine 1734 (Given - Provider: Bell Amezcua RN) 1756 (Given - Provider: Bell Amezcua RN) montelukast (Singulair) tablet 10 mg 10 mg, Oral, DAILY, First dose on Fri06/14/24 at 0900, Until Discontinued, Routine 0946 (Given - Provider: Bell Amezcua RN) 0833 (Given - Provider: Bell Amezcua RN) 0904 (Given - Provider: Bell Amezcua RN) pantoprazole (Protonix) injection 40 mg (CANCELED) 40 mg, Intravenous, DAILY, First dose on Fri06/18/24 at 1200, Until Discontinued, Reconstitute with 10 mL of normal saline to a concentration of 4 mg/mL and inject slowly over 2 minutes. 0947 (Given - Provider: Bell Amezcua RN) 0833 (Given - Provider: Bell Amezcua RN) 0900 (Not Given - Provider: Bell Amezcua RN - Reason: Medication Discontinued) pantoprazole EC (Protonix) tablet 40 mg 40 mg, Oral, DAILY, First dose on Fri06/21/24 at 0930, Until Discontinued, DO NOT CRUSH OR OPEN, Routine 0930 (Not Given - Provider: Bell Amezcua RN - Reason: See comment - Comment: pt agitated) polyethylene glycoL (Miralax) packet 17 g 17 g, Oral, 2 TIMES DAILY, First dose (after last modification) on Fri06/17/24 at 2100, Until Discontinued, Routine 0900 (Not Given - Provider: Bell Amezcua RN - Reason: Order parameters not met)2044 (Given - Provider: Erik Dumont RN) 0900 (Not Given - Provider: Bell Amezcua RN - Reason: Order parameters not met)2012 (Given - Provider: Erik Dumont RN) 0900 (Not Given - Provider: Bell Amezcua RN - Reason: Order parameters not met) prazosin (Minipress) capsule 2 mg 2 mg, Oral, NIGHTLY, First dose on Fri06/14/24 at 2100, Until Discontinued, Routine 2035 (Given - Provider: Erik Dumont RN) 2040 (Given - Provider: Erik Dumont RN) pyridoxine (Vitamin B6) (Vitamin B6) tablet 50 mg 50 mg, Oral, DAILY, First dose on Fri06/16/24 at 1400, Until Discontinued, Routine 0948 (Given - Provider: Bell Amezcua RN) 0835 (Given - Provider: Bell Amezcua RN) 0901 (Given - Provider: Bell Amezcua RN) QUEtiapine XR (SeroqueL XR) tablet 50 mg 50 mg, Oral, DAILY, First dose on Fri06/19/24 at 1130, Until Discontinued, DO NOT CRUSH OR OPEN, Routine 1129 (Given - Provider: Bell Amezcua RN) 0835 (Given - Provider: Bell Amezcua RN) 0901 (Given - Provider: Bell Amezcua RN) senna-docusate (Pericolace) 8.6-50 mg per tablet 2 tablet 2 tablet, Oral, 2 TIMES DAILY, First dose on Fri06/16/24 at 1430, Until Discontinued, Hold for loose stool. , Routine 0900 (Not Given - Provider: Bell Amezcua RN - Reason: Patient/family refused)2044 (Given - Provider: Erik Dumont RN) 0900 (Not Given - Provider: Bell Amezcua RN - Reason: Order parameters not met)2013 (Given - Provider: Erik Dumont RN) 0900 (Not Given - Provider: Bell L Buffalo, RN - Reason: Order parameters not met) traZODone (Desyrel) tablet 100 mg 100 mg, Oral, NIGHTLY, First dose on Fri06/14/24 at 2100, Until Discontinued, Routine 2029 (Given - Provider: Erik Dumont RN) 2013 (Given - Provider: Erik Dumont RN) zonisamide (Zonegran) capsule 400 mg 400 mg, Oral, NIGHTLY, First dose (after last modification) on Fri06/14/24 at 0430, Until Discontinued, DO NOT SPLIT, CRUSH OR OPEN, Routine 2034 (Given - Provider: Erik Dumont, HEATHER) 2040 (Given - Provider: Erik Dumont, HEATHER) PRN Medication Order 06/19/2024 06/20/2024 06/21/2024 acetaminophen (Tylenol) tablet 975 mg 975 mg, Oral, EVERY 6 HOURS PRN, Starting on Jo Ann 06/17/24 at 0445, Until Fri06/21/24 at 1707, Pain, - Maximum dose of acetaminophen is 4,000 mg from all sources in 24 hours. - Unless otherwise specified, when ordered PRN for pain, acetaminophen should be given first if other PRN pain medications are ordered., Routine 1613 (Given - Provider: Bell Amezcua RN) 26 (Given - Provider: Erik Dumont RN)2013 (Given - Provider: Erik Dumont RN) bisacodyL (Dulcolax) suppository 10 mg(Linked Group 3) 10 mg, Rectal, DAILY PRN, Starting on Fri06/16/24 at 1400, Until Fri06/21/24 at 1707, Constipation, Give if no BM within last 24 hr and rectal fullness is reported or assessed. Give concomitantly with any scheduled bowel medications ordered. , Routine bisacodyL EC (Dulcolax) tablet 10 mg(Linked Group 3) 10 mg, Oral, 2 TIMES DAILY PRN, Starting on Fri06/16/24 at 1400, Until Fri06/21/24 at 1707, Constipation, Give if no BM after 24 hr after prior interventions. BM expected in 6-8 hours. If BM desired sooner, use next ordered agent. Give concomitantly with any scheduled bowel medications ordered., Routine haloperidoL lactate (Haldol) (5 mg/mL) injection 2 mg 2 mg, Intramuscular, 2 TIMES DAILY PRN, Starting on Fri06/18/24 at 0841, Until Fri06/21/24 at 1707, Agitation, Use as second agent after Quetiapine PRN, If medication ordered subcutaneously, do not administer more than 3 mL as a single injection., Routine 1221 (Given - Provider: Bell Amezcua RN) 0030 (Given - Provider: Erik Dumont, RN)2303 (Given - Provider: Erik Dumont RN) lactulose (Chronulac) (0.67 gram/mL) oral liquid 20 g(Linked Group 3) 20 g, Oral, DAILY PRN, Starting on Fri06/16/24 at 1400, Until Fri06/21/24 at 1707, Constipation, Give if no BM 24 hr after prior interventions or if BM is desired within 2 hr. Give concomitantly with any scheduled bowel medications ordered, Routine lactulose (Chronulac) (0.67 gram/mL) oral liquid 20 g(Linked Group 3) 20 g, Oral, DAILY PRN, Starting on Fri06/16/24 at 1400, Until Fri06/21/24 at 1707, Constipation, Give an additional (2nd) dose of lactulose 2 hr after 1st dose if still no BM. Disregard if 1st dose of lactulose not ordered. Give concomitantly with any scheduled bowel medications ordered. , Routine magnesium citrate oral liquid 296 mL(Linked Group 3) 296 mL, Oral, ONCE PRN, 1 dose, Starting on Fri06/16/24 at 1400, Until Fri06/21/24 at 1707, Constipation, Give if no BM 2 hr after previous interventions. If 2 hr after mag citrate there is still no BM, see order for tap water enema, if placed. Give concomitantly with any scheduled bowel medications ordered., Routine ondansetron (pf) (Zofran) (2 mg/mL) injection 4 mg(Linked Group 4) 4 mg, Intravenous, EVERY 8 HOURS PRN, Starting on Fri06/20/24 at 0028, Until Fri06/21/24 at 1707, Nausea, Vomiting 0034 (Given - Provider: Erik Dumont, HEATHER) ondansetron (Zofran) tablet 4 mg(Linked Group 4) 4 mg, Oral, EVERY 8 HOURS PRN, Starting on Fri06/20/24 at 0028, Until Fri06/21/24 at 1707, Nausea, Vomiting, Routine 0034 (See Alternative - Provider: Erik Dumont, HEATHER) polyethylene glycoL (Miralax) packet 17 g(Linked Group 3) 17 g, Oral, DAILY PRN, Starting on Fri06/16/24 at 1400, Until Fri06/21/24 at 1707, Constipation, Give if no BM within last 24 hr. Give concomitantly with any scheduled bowel medications ordered. , Routine QUEtiapine (Seroquel) tablet 100 mg 100 mg, Oral, 2 TIMES DAILY PRN, Starting on Fri06/18/24 at 1515, Until Fri06/21/24 at 1707, Agitation, Use before IM Haldol, Routine 1205 (Given - Provider: Bell Amezcua, HEATHER)1511 (Given - Provider: Bell Amezcua, HEATHER) 2013 (Given - Provider: Erik Dumont, HEATHER) Linked Groups Order Group 1: hydrocortisone (Cortef) tablet 10 mgJump to med 10 mg, Oral, DAILY BEFORE DINNER, First dose (after last modification) on Fri06/18/24 at 1630, Until Discontinued, Routine Or hydrocortisone sod succ (pf) (Solu-CORTEF) (100 mg/2 mL) injection 10 mg (CANCELED) 10 mg, Intravenous, DAILY BEFORE DINNER, First dose on Fri06/18/24 at 1630, Until Discontinued, Give if unable to take orally Group 2: hydrocortisone (Cortef) tablet 20 mgJump to med 20 mg, Oral, EVERY MORNING, First dose (after last reorder) on Fri06/18/24 at 1245, Until Discontinued, Routine Or hydrocortisone sod succ (pf) (Solu-CORTEF) (100 mg/2 mL) injection 20 mgJump to med 20 mg, Intravenous, EVERY MORNING, First dose on Fri06/18/24 at 1245, Until Discontinued, Give if unable to receive orally Group 3: polyethylene glycoL (Miralax) packet 17 gJump to med 17 g, Oral, DAILY PRN, Starting on Fri06/16/24 at 1400, Until Fri06/21/24 at 1707, Constipation, Give if no BM within last 24 hr. Give concomitantly with any scheduled bowel medications ordered. , Routine And bisacodyL (Dulcolax) suppository 10 mgJump to med 10 mg, Rectal, DAILY PRN, Starting on Fri06/16/24 at 1400, Until Fri06/21/24 at 1707, Constipation, Give if no BM within last 24 hr and rectal fullness is reported or assessed. Give concomitantly with any scheduled bowel medications ordered. , Routine And bisacodyL EC (Dulcolax) tablet 10 mgJump to med 10 mg, Oral, 2 TIMES DAILY PRN, Starting on Fri06/16/24 at 1400, Until Fri06/21/24 at 1707, Constipation, Give if no BM after 24 hr after prior interventions. BM expected in 6-8 hours. If BM desired sooner, use next ordered agent. Give concomitantly with any scheduled bowel medications ordered., Routine And lactulose (Chronulac) (0.67 gram/mL) oral liquid 20 gJump to med 20 g, Oral, DAILY PRN, Starting on Fri06/16/24 at 1400, Until Fri06/21/24 at 1707, Constipation, Give if no BM 24 hr after prior interventions or if BM is desired within 2 hr. Give concomitantly with any scheduled bowel medications ordered, Routine And lactulose (Chronulac) (0.67 gram/mL) oral liquid 20 gJump to med 20 g, Oral, DAILY PRN, Starting on Fri06/16/24 at 1400, Until Fri06/21/24 at 1707, Constipation, Give an additional (2nd) dose of lactulose 2 hr after 1st dose if still no BM. Disregard if 1st dose of lactulose not ordered. Give concomitantly with any scheduled bowel medications ordered. , Routine And magnesium citrate oral liquid 296 mLJump to med 296 mL, Oral, ONCE PRN, 1 dose, Starting on Fri06/16/24 at 1400, Until Fri06/21/24 at 1707, Constipation, Give if no BM 2 hr after previous interventions. If 2 hr after mag citrate there is still no BM, see order for tap water enema, if placed. Give concomitantly with any scheduled bowel medications ordered., Routine And Tap water enema (CANCELED) Routine, DAILY PRN, Starting on Fri06/16/24 at 1400, Until Specified, Give if no BM in at least 24 hr and all other ordered bowel regimen medications have been unsuccessful. Give concomitantly with any scheduled bowel medications ordered. Group 4: ondansetron (Zofran) tablet 4 mgJump to med 4 mg, Oral, EVERY 8 HOURS PRN, Starting on 06/20/24 at 0028, Until Fri06/21/24 at 1707, Nausea, Vomiting, Routine Or ondansetron (pf) (Zofran) (2 mg/mL) injection 4 mgJump to med 4 mg, Intravenous, EVERY 8 HOURS PRN, Starting on 06/20/24 at 0028, Until Fri06/21/24 at 1707, Nausea, Vomiting documented in this encounter Care Teams Interior Designer Relationship Specialty Start Date End Date Jimbo More [place] [address] PCP - General Internal Medicine 06/18/24 documented as of this encounter
--- OUTSIDE RECORDS SUMMARY | 2024-06-28 14:01 | XMS_ITS | Encounter Summary ---
Author Organization [facility] Address [facility] [place] [address] Care Team Providers Care Panel Fitter Name Role Phone Jimbo More Primary Care Provider + Reason for Visit * Reason Onset Date Comments Appointment 06/16/2024 Encounter Details Date Type Department Care Team (Late st Contact Info) Description 06/16/2024 [place] [address] Lauren Ruby MD [facility] [place] [address] Appointment Social History Tobacco Use Types Packs/Day Years Used Date Smoking Tobacco: Never Smokeless Tobacco: Never Alcohol Use Standard Drinks/Week Comments No 0 (1 standard drink = 0.6 oz pur e alcohol) [facility] Utilities Answer Date Recorded In the past 12 months has [employer], gas, oil, or water [employer] threatened to shut off services in your [...] any time in the past 12 m [facility], were you homeless or living in a group home (including now)? No 2024 IPV Inpatient Questions [...] encounter Miscellaneous Notes * Telephone Encounter - Isabel Gallegos - 06/16/2024 8:03 AM EST Images from the original note were not included. Scheduled Consult with Dr. Barriga 07/20 Pt admitted, appointment(s) will be on the discharge paperwork. Lauren Ruby MD [facility] Labor Training Manager Jared, Please help me schedule a follow up appointment as per below. ID: Miguel Angel Burgos, 34 y.o. 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 Barriga Timeframe: 1 month Imaging: Completed while inpatient 06/2024 Thank you, Lauren Ruby MD 06/16/2024 7:39 AM documented in this encounter Plan of Treatment Upcoming Encounters Date Type Department Care Team (Late st Contact Info) Description 07/20/2024 1:30 PM EST Office [place] [address] Eron Barriga MD [facility] [place] [address] documented as of this encounter Visit Diagnoses Not on filedocumented in this encounter Care Teams Panel Fitter Relationship Specialty Start Date End Date Jimbo More [place] [place] [address] PCP - General Internal Medicine 06/18/24 documented as of this encounter
--- OUTSIDE RECORDS SUMMARY | 2024-06-28 14:02 | XMS_ITS | Encounter Summary ---
Author Organization [facility] Address [facility] [place] [address] Care Team Providers Care Medical Underwriter Name Role Phone Ren Vaz MD Primary Care Provider [phone] Reason for Visit * Consultation (Routine) - Closed Specialty Diagnoses / Procedures Referred By Contac t Referred To Contact Maxillofacial Surgery Diagnoses Extraction of tooth needed Marques Hu, DMD [address] [place] [address] Joyce Kelly PA [facility] [place] [address] Referral ID Status Reason Start Date Expiration Date V isits Requested Visits Authorized [id number] Closed Consult, Test & Treat 08/17/2021 08/17/2022 1 1 Encounter Details Date Type Department Care Team (Late st Contact Info) Description 11/01/2021 11:00 AM EDT Office Visit [place] [address] Joyce Kelly PA Dental caries Social History Tobacco Use Types [...] DMD Referral to Maxillofacial Surgery To: JOYCE EKLLY [phone] Specialty: My question or request is: evaluate patient for hospitalized dental care for special needs adult ext [phone] ? Referral Information Reference# [id number] Referral type: Consultation # Visits requested: 1 [...] notations from today's history: ?? Presents with career consultant, Carmel, today ?? The patient's guardian is his sister, Bettina, he reportedly resides at [facility] ?? Per chart review has history of [...] of the anterior maxillary teeth. Per the case reviewer this was mainly in the setting of concern that the teeth may be fragile and will require extraction in the future. They would appreciate a second opinion as tothe anterior maxillary teeth ??? It is somewhat unclear as to the dentist's recommendations in regards to these teeth ??? Reportedly they are able to perform oral care at the assisted with the patient on a daily basis [...] caries of #7,9,10,11 in patient residing in assisted setting with complex medical history as described above Recommendations/plan: Clinical scenario was discussed with Dr. Luke. Discussed with the patient and rn primary care thatultimately our recommendations would typically be to defer to the dentist's evaluation and recommended treatment plan, and that we are not able to offer restorative measures in our practice nor distinguish whether this would be the most appropriate course. We were able to contact her dentist's office and it does seem they had proposed gnosticism of teeth #7,9,10,11,31. As above would ultimately [...] plan. Additional questions were addressed and the rn primary care appeared satisfied with the above discussion. We appreciate the opportunity to be involved in Mr. Burgos's care. NAKIA Mims-C - Oral-Maxillofacial Surgery 11/02/2021 10:01 AM This note may have incorporated [id number] technology and though reviewed typographical or syntax errors may remain. documented in this encounter Plan of Treatment Upcoming Encounters Date Type Department Care Team (Late st Contact Info) Description 07/20/2024 1:30 PM EST Office [place] [address] Eron Barriga MD [facility] [place] [address] documented as of this encounter Visit Diagnoses Diagnosis Dental caries Unspecified dental caries documented in this encounter Care Teams Medical Underwriter Relationship Specialty Start Date End Date Ren Vaz MD PCP - General Family Medicine 06/02/20 06/17/24 documented as of this encounter
--- OUTSIDE RECORDS SUMMARY | 2024-06-28 14:02 | XMS_ITS | Encounter Summary ---
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 * Consultation (Routine) - Specialty Diagnoses / Procedures Referred By Duyen bui Referred To Contact Endocrinology Diagnoses panhypopituitarism Lc Venegas PA [address] [place] [address] [facility] [address] [place] [id number] Referral ID Status Reason Start Date Expiration Date V isits Requested Visits Authorized [id number] Consult, Test & Treat [facility] 04/14/2018 04/14/2019 6 6 Encounter Details Date Type Department Care Team (Latest Contact Info) Description 07/15/2018 11:00 AM EST Office [place] [address] Christopher Hess MD [facility] [place] [address] Mariola Thomson MD [facility] [place] [address] Hypopituitarism (Primary Dx) Social History [...] seizure disorder. Miguel Angel was admitted to [facility] from 09/02/2017 until 03/12/2018 due to a [...] Also per d/c summary: Decreased hydrocortisone from 25/04/10 to 20/10 per endocrine on 11/16. Follow-up [...] energy for him. Social Hx: Lives in [facility] [phone] Lala Posada Sister is DOPA Meds: Current [...] flexeril TID Neurological: Positive for headaches (per authorizer). Objective:BP 116/79 (BP Location (NBP): Left arm, [...] his fluid restriction. I have asked his authorizer Lala gardnerraquel me know if his urinary output appears [...] locally Case discussed and seen with staff Cold Roll Catcher, Christopher Hess MD. Of note, pt previously followed with Wilder Zaidi at [facility]- will route this note to him as pt's care providers wish him to follow here since it is closer for them in his new home. Route to [facility] Cifuentes and Dejuan. F/u in 1 year or sooner for any changes whatsoever. Will f/u DEXA over the telephone as it is hard for them to get here. Mariola Thomson MD PGY-4 [facility] Endocrinology Fellow Pager #[phone] * Christopher Hess MD - 07/15/2018 11:00 [...] 1:30 PM EST [place] [address] Eron Barriga MD [facility] [address] documented as of this encounter Results * T4, free (07/15/2018 12:49 PM EST) Free T4 1.24 0.93 - 1.70 ng/dL [facility] Blood specimen (specimen) 07/15/2018 12:49 PM EST 07/15/2018 12:55 PM EST Narrative Resulting Agency Comment Spec In Lab Christopher Hess MD CHEMISTRY ORDERABLES [facility] [place] [address] * (ABNORMAL) Basic Metabolic Panel (non-fasting) (07/15/2018 12:49 PM EST) Pathologist [facility] Glucose 105 65 - 199 mg/dL [facility] Comment:Diabetes: >=200 mg/d L plus symptoms Blood Urea Nitrogen 16 10 - 20 mg/dL [facility] Creatinine 0.83 0.80 - 1.50 mg/dL [facility] Sodium 138 135 - 145 mmol/L [facility] Potassium 3.9 3.5 - 5.0 mmol/L [facility] Comment: Please note: ??Patients with WBC >100,000 may have falsely elevated Potassium levels. ??For accurate Potassium quantification in these patients send serum separator tube (gold top) for subsequent determinations. ??Contact the Clinical Chemistry Laboratory if there are any questions. Chloride 104 98 - 107 mmol/L [facility] Carbon Dioxide 19(L) 22 - 31 mmol/L [facility] Anion Gap 15 5 - 15 mmol/L [facility] Calcium 9.2 8.5 - 10.5 mg/dL [facility] Est Glomerular Filtration Rate 120 >=60 mL/min/1. 73 m?? [facility] Comment: The eGFR was calculated using the CKD-EPI equation. As with all creatinine based estimates of kidney function, eGFR values calculated with the CKD-EPI equation are not accurate in patients with acute kidney failure, extremes of body mass or the acutely ill. [email or web address] eGFR 139 >=60 mL/min/1. 73 m?? [facility] Comment: The eGFR was calculated using the CKD-EPI equation. As with all creatinine based estimates of kidney function, eGFR values calculated with the CKD-EPI equation are not accurate in patients with acute kidney failure, extremes of body mass or the acutely ill. [email or web address] Blood specimen (specimen) 07/15/2018 12:49 PM EST 07/15/2018 12:55 PM EST Narrative Resulting Agency Comment Spec In Lab Christopher Hess MD CHEMISTRY ORDERABLES [facility] [place] [address] * Vitamin D, 25-Hydroxy (07/15/2018 12:49 PM EST) Vitamin D Total 25 OH 32 30 - 100 ng/mL [facility] Comment: Deficient <10 ng/mL Insufficient 10 to 29 ng/mL Sufficient 30 to 100 ng/mL Potential Intoxication >100 ng/mL According to the [place] National Osteoporosis Foundation, Vitamin D concentrations >30 ng/mL are sufficient to protect bone health. ??The National Kidney Foundation has similarly stated that patients with Vitamin D concentrations <30ng/mL should be considered to be insufficient or deficient. http://ComActivity/nkf-guidelines http://ComActivity/nejm-VitD The [employer] i[employer] Vitamin D Immunoassay detects both 25-OH Vitamin D2 and 25-OH Vitamin D3, but only a total Vitamin D concentration is reported. Blood specimen (specimen) 07/15/2018 12:49 PM EST 07/16/2018 7:49 AM EST Narrative Resulting Agency Comment Spec In Lab Christopher Hess MD CHEMISTRY ORDERABLES [facility] [place] [address] documented in this encounter Visit Diagnoses Diagnosis Hypopituitarism- Primary Panhypopituitarism documented in this encounter Care Teams Transfer Iron Operator Relationship Specialty Start Date End Date Lc Venegas PA [address] [place] [address] PCP - General General Internal Medicine 09/03/17 documented as of this encounter
--- OUTSIDE RECORDS SUMMARY | 2024-06-28 14:02 | XMS_ITS | Encounter Summary ---
Author Organization [facility] [place] [address] Care Team Providers Care Cleaning Specialist Name Role Phone Lc Venegas Primary Care Provider [phone] Encounter Details Date Type Department Care Team (Late st Contact Info) Description 03/22/2019 Telephone [place] [phone] Heidi Yi MD Social History Tobacco Use Types Packs/Day [...] 03/22/2019 10:05 AM EDT Patient seen at [facility] for lethargy, workup negative so far including [...] to. Case discussed with on-call attending Dr. Mroris. Heidi Yi MD PGY-4 [facility] Endocrinology Fellow Pager #[phone] documented in this encounter Plan of Treatment Upcoming Encounters Date Type Department Care Team (Late st Contact Info) Description 07/20/2024 1:30 PM EST [place] [address] Eron Barriga MD [facility] [place] [address] documented as of this encounter Visit Diagnoses Not on filedocumented in this encounter Care Teams Cleaning Specialist Relationship Specialty Start Date End Date Lc Venegas PA [address] [place] [address] PCP - General General Internal Medicine 09/03/17 documented as of this encounter
--- OUTSIDE RECORDS SUMMARY | 2024-06-28 14:02 | XMS_ITS | Encounter Summary ---
Author Organization [facility] [place] [address] Care Team Providers Care Classified Copy Control Clerk Name Role Phone Lc Venegas Primary Care Provider [phone] Encounter Details Date Type Department Care Team (Late st Contact Info) Description 03/21/2019 2:40 PM EDT Ancillary Procedure Radiology Library at [facility] ([place] [phone] Pedro Colon MD [facility] [place] [address] Social History Tobacco Use Types Packs/Day Years [...] 1:30 PM EST Office Visit Neurosurgery at [facility] [place] [address] Eron Barriga MD [facility] [place] [address] documented as of this encounter Procedures Procedure Name Priority Date/Time Associated Diagnosis Comments FILM LIBRARY STORAGE ONLY CT HEAD Routine 03/21/2019 2:37 PM EDT documented in this encounter Results * Film Library- Storage Only CT Head (03/21/2019 2:37 PM EDT) Narrative [facility] - 03/21/2019 2:37 PM EDT This exam is auto-finalizing. It's purpose is for storage only. Pedro Colon MD IMG FILM LIBRARY O RDERABLES Performing Organization Address City/State/[facility] Co de Phone Number [place], [place] documented in this encounter Visit Diagnoses Not on filedocumented in this encounter Care Teams Classified Copy Control Clerk Relationship Specialty Start Date End Date Lc Venegas PA [address] [place] [address] PCP - General General Internal Medicine 09/03/17 documented as of this encounter
--- OUTSIDE RECORDS SUMMARY | 2024-06-28 14:02 | XMS_ITS | Encounter Summary ---
Author Organization [facility] [place] [address] Care Team Providers Care River Guide Name Role Phone Ren Vaz MD Primary Care Provider [phone] Encounter Details Date Type Department Care Team (Late st Contact Info) Description 08/16/2021 Transcribe Orders [place] [address] Gabriela Sandra Social History Tobacco Use Types [...] 1:30 PM EST [place] [address] Eron Barriga MD [facility] [place] [address] documented as of this encounter Visit Diagnoses Not on filedocumented in this encounter Care Teams River Guide Relationship Specialty Start Date End Date Ren Vaz MD PCP - General Family Medicine 06/02/20 06/17/24 documented as of this encounter
--- OUTSIDE RECORDS SUMMARY | 2024-06-28 14:02 | XMS_ITS | Encounter Summary ---
Author Organization [facility] [place] [address] Care Team Providers Care Telecommunication Equipment Repairer Name Role Phone Ren Vaz MD Primary Care Provider [phone] Reason for Referral * Consultation (Routine) - Closed Specialty Diagnoses / Procedures Referred By Contshalonda bui Referred To Contact Maxillofacial Surgery Diagnoses Extraction of tooth needed Marques Hu DMD [address] [place] [address] Joe Nguyen, NAKIA [facility] [place] [address] Referral ID Status Reason Start Date Expiration Date V isits Requested Visits Authorized [id number] Closed Consult, Test & Treat 08/17/2021 08/17/2022 1 1 Encounter Details Date Type Department Care Team (Latest Contact Info) Description 08/17/2021 Transcribe Orders [place] [address] Gabriela Sandra Extraction of tooth needed Social [...] 1:30 PM EST Office [place] [address] Eron Barriga MD [facility] [place] [address] Scheduled Referrals Name Type Priority Associated Diagnoses Order Schedule Referral to Maxillofacial Surgery Outpatient Referral Routine Extraction Of Tooth Needed Ordered: 08/17/2021 documented as of this encounter Visit Diagnoses Diagnosis Extraction of tooth needed documented in this encounter Care Teams Telecommunication Equipment Repairer Relationship Specialty Start Date End Date Ren Vaz MD PCP - General Family Medicine 06/02/20 06/17/24 documented as of this encounter
--- OUTSIDE RECORDS SUMMARY | 2024-06-28 14:02 | XMS_ITS | Encounter Summary ---
Author Organization [facility] Address [facility] [place] [address] Care Team Providers Care Director Of Sports Medicine Name Role Phone Lc Venegas Primary Care Provider [phone] Encounter Details Date Type Department Care Team (Latest Contact Info) Description 07/15/2018 12:40 PM EST Laboratory Appointment Lab [address] [address] Hypopituitarism Social History Tobacco Use Types Packs/Day [...] 1:30 PM EST Office [place] [address] Eron Barriga MD [facility] [place] [address] documented as of this encounter Procedures Procedure Name Priority Date/Time Associated Diagnosis Comments VITAMIN D, 25-HYDROXY Routine 07/15/2018 12:49 PM EST Hypopituitarism T4, FREE Routine 07/15/2018 12:49 PM EST Hypopituitarism BASIC METABOLIC PANEL Routine 07/15/2018 12:49 PM EST Hypopituitarism documented in this encounter Results * Vitamin D, 25-Hydroxy (07/15/2018 12:49 PM EST) Vitamin D Total 25 OH 32 30 - 100 ng/mL [facility] Comment: Deficient <10 ng/mL Insufficient 10 to 29 ng/mL Sufficient 30 to 100 ng/mL Potential Intoxication >100 ng/mL According to the [place] National Osteoporosis Foundation, Vitamin D concentrations >30 ng/mL are sufficient to protect bone health. ??The National Kidney Foundation has similarly stated that patients with Vitamin D concentrations <30ng/mL should be considered to be insufficient or deficient. http://Cluepedia/nkf-guidelines http://Cluepedia/nejm-VitD The [employer] i[employer] Vitamin D Immunoassay detects both 25-OH Vitamin D2 and 25-OH Vitamin D3, but only a total Vitamin D concentration is reported. Blood specimen (specimen) 07/15/2018 12:49 PM EST 07/16/2018 7:49 AM EST Narrative Resulting Agency Comment Spec In Lab Christopher Hess MD CHEMISTRY ORDERABLES [facility] [place] [address] * (ABNORMAL) Basic Metabolic Panel (non-fasting) (07/15/2018 12:49 PM EST) Glucose 105 65 - 199 mg/dL [facility] Comment:Diabetes: >=200 mg/d L plus symptoms Blood Urea Nitrogen 16 10 - 20 mg/dL [facility] Creatinine 0.83 0.80 - 1.50 mg/dL [facility] Sodium 138 135 - 145 mmol/L [facility] Potassium 3.9 3.5 - 5.0 mmol/L [facility] Comment: Please note: ??Patients with WBC >100,000 may have falsely elevated Potassium levels. ??For accurate Potassium quantification in these patients send serum separator tube (gold top) for subsequent determinations. ??Contact the Clinical Chemistry Laboratory if there are any questions. Chloride 104 98 - 107 mmol/L [facility] Carbon Dioxide 19(L) 22 - 31 mmol/L [facility] Anion Gap 15 5 - 15 mmol/L [facility] Calcium 9.2 8.5 - 10.5 mg/dL [facility] Est Glomerular Filtration Rate 120 >=60 mL/min/1. 73 m?? [facility] Comment: The eGFR was calculated using the CKD-EPI equation. As with all creatinine based estimates of kidney function, eGFR values calculated with the CKD-EPI equation are not accurate in patients with acute kidney failure, extremes of body mass or the acutely ill. http://Cluepedia/[facility] – SEMINOLEnkf eGFR 139 >=60 mL/min/1. 73 m?? [facility] Comment: The eGFR was calculated using the CKD-EPI equation. As with all creatinine based estimates of kidney function, eGFR values calculated with the CKD-EPI equation are not accurate in patients with acute kidney failure, extremes of body mass or the acutely ill. http://Cluepedia/DHnkf Blood specimen (specimen) 07/15/2018 12:49 PM EST 07/15/2018 12:55 PM EST Narrative Resulting Agency Comment Spec In Lab Christopher Hess MD CHEMISTRY ORDERABLES Performing Organization Address [facility] Co de Phone Number [facility] [place] [address] * T4, free (07/15/2018 12:49 PM EST) Free T4 1.24 0.93 - 1.70 ng/dL [facility] Blood specimen (specimen) 07/15/2018 12:49 PM EST 07/15/2018 12:55 PM EST Narrative Resulting Agency Comment Spec In Lab Christopher Hess MD CHEMISTRY ORDERABLES Performing Organization Address [facility]/[place] [address] documented in this encounter 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
--- OUTSIDE RECORDS SUMMARY | 2024-06-28 14:02 | XMS_ITS | Encounter Summary ---
Author Organization [facility] [place] [address] Care Team Providers Care Beauty Culture Teacher Name Role Phone Randa Colonh MAX Primary Care Provider [phone] Reason for Referral * Diagnostic Test (Routine) - Closed Specialty Diagnoses / Procedures Referred By Contac t Referred To Contact Radiology Diagnoses Growth hormone deficiency Fracture Procedures DXA Central Spine, Hip, and/or Whole Body (Generic) Wilder Zaidi DO [address] [employer] [address] [address] [facility] [email or web address] [address] [place] [address] Referral ID Status Reason Start Date Expiration Date V isits Requested Visits Authorized [id number] Closed Specialty Service Requested 05/26/2019 05/25/2020 1 1 Reason for Visit * Diagnostic Test (Routine) - Closed Specialty Diagnoses / Procedures Referred By Contac t Referred To Contact Radiology Diagnoses Growth hormone deficiency Fracture Procedures DXA Central Spine, Hip, and/or Whole Body (Generic) Wilder Zaidi DO [address] [employer] [address] [place] [phone] [facility] Rad Xray [address] [address] Referral ID Status Reason Start Date Expiration Date V isits Requested Visits Authorized [id number] Closed Specialty Service Requested 05/26/2019 05/25/2020 1 1 Encounter Details Date Type Department Care Team (Latest Contact Info) Description 06/21/2019 10:30 AM EST - 06/21/2019 11:59 PM [facility] Hospital Encounter XRay at [address] [place] [address] Wilder Zaidi, DO [address] [address] Growth hormone deficiency; Fracture Discharge [...] needed for incontinence 90 each 3 03/11/2018 cyclobenzaprine (FLEXERIL) 5 mg Tablet Take 5 mg by mouth 3 times daily as needed for Muscle spasms. 11/01/2021 bisacodyl (DULCOLAX) [address] 1 suppository rectally daily as needed. 60 suppository 3 03/11/2018 11/01/2021 metoprolol succinate (TOPROL-XL) 25 mg Tablet Sustained Release 24 hr Take 3 tablets by mouth daily. 30 tablet 12 03/12/2018 06/21/2024 simethicone (MYLICON) 80 mg Tablet, Chewable Take [...] 1:30 PM EST [place] [address] Eron Barriga MD [facility] [place] [address] documented as of this encounter Procedures Procedure [...] BMD measurements and plots are available in [employer] under the imaging tab. Paper copies will be sent to providers without [employer] access. If you have received this report without the data sheet and do not have access to [employer], please contact Radiology [employer] at [phone] Friday thru Friday 8am-4pm. ?? Thank you for letting us participate in the care of this patient. For questions regarding this report, please contact the number below. ? Narrative 06/24/2019 7:15 PM EST EXAMINATION: DXA CENTRAL SPINE, HIP, AND/OR WHOLE BODY (GENERIC) CLINICAL HISTORY: director decision support steroid use, low testosterone, history of fracture, per ordering provider TECHNIQUE: Scans were acquired at the lumbar spine, and right hip. Patient has hardware and left hip COMPARISON: none FINDINGS: Lowest Z-score at a diagnostic region of interest: Z-score: -2.3, ALLISON: Lumbar spine Procedure Note Park Dalal MD - 06/24/2019 EXAMINATION: DXA CENTRAL SPINE, HIP, AND/OR WHOLE BODY (GENERIC) CLINICAL HISTORY: director decision support steroid use, low testosterone, history offracture, per [...] BMD measurements and plots are available in [employer] the imaging tab. Paper copies will be sent to providers without [employer] access.If you have received this report without the data sheet and do not haveaccess to [employer], please contact Radiology [facility] at [phone] Friday thrrid 8am-4pm. Thank you for letting us participate in the care of this patient. Forquestions regarding this report, please contact the number below. Wilder Zaidi DO IMG DEXA ORDERABLES documented in this encounter Visit Diagnoses Diagnosis Growth hormone deficiency Pituitary dwarfism Fracture Closed fracture of unspecified bone documented in this encounter Care Teams Beauty Culture Teacher Relationship Specialty Start Date End Date Subha Colon, MAX [address] [place] [address] PCP - General Family Medicine 04/30/19 06/01/20 documented as of this encounter
--- OUTSIDE RECORDS SUMMARY | 2024-06-28 14:02 | XMS_ITS | Encounter Summary ---
[place] [address] Care Team Providers Care Straight Cutter Machine Name Role Phone Ren Vaz MD Primary Care Provider [phone] Reason for Visit * Auth/Cert (Routine) Specialty Diagnoses / Procedures Referred By Contac t Referred To Contact Diagnoses Hyponatremia hyponatremia Procedures ER Mariola Crisostomo MD [facility] [place] [address] [facility] Referral ID Status Reason Start Date Expiration Date Visits Re quested Visits Authorized [id number] 1 1 Encounter Details Date Type Department Care Team (Late st Contact Info) Description 2024 3:10 PM EST - 2024 4:30 [place] [id number] RESOURCE, ANESTHESIA-LERNA None MRI WITH ANESTHESIA (WRVU *) Social History Tobacco Use Types Packs/Day Years Used Date Smoking Tobacco: Never Smokeless Tobacco: Never Alcohol Use Standard Drinks/Week Comments No 0 (1 standard drink = 0.6 oz pur e alcohol) [facility] Utilities Answer Date Recorded In the past 12 months has e electric, gas, oil, or water company [...] any time in the past 12 m [facility], were you homeless or living in a skilled nursing (including now)? No 2024 DH IPV Inpatient [...] Sign Reading Time Taken Comments Blood Pressure 105/64 2024 4:30 PM EST Pulse 62 2024 4:30 PM EST Temperature 35.4 ??C (95.7 ??F) 2024 4:30 PM ES T Respiratory Rate 12 2024 4:30 PM EST Oxygen Saturation 98% 2024 4:30 PM EST Inhaled Oxygen Concentration - - Weight [...] needed. Per discussion with Madeleine from the nursing home where he lives 06/17. She notes his [...] has been significant for: Hyponatremia: Presented to [facility] following witnessed tonic-clonic seizure at [facility], found to have sodium of 122. On [...] in September 2023. On second read of [facility] scan described as hypoattenuating, likely cystic mass [...] Seizures: 2 min tonic-clonic seizure witnessed at nursing home, 30 sec seziure at [facility] ED (2mg ativangiven). None since arrival to [...] 97 % No results for input(s): PHART, VCB8ZNE, PO2ART, RHO7WCP in the last 168 hours. I/O: Date 06/21/24 0700 - 06/22/24 0659 Shift 8352-4965 8554-4586 5022-5645 24 Hour Total INTAKE P.O. 354 354 Shift Total(mL/kg) 354(3.6) 354(3.6) OUTPUT Urine(mL/kg/hr) 825 825 Shift Total(mL/kg) 825(8.4) 825(8.4) Weight (kg) 98.8 98.8 98.8 98.8 Labs: Recent Labs 06/21/24 0050 06/20/245206/19/24 0410 NA 141 137 135 K 4.3 3.7 3.8 CL 111* 102 97* CO2 18* 20* 25 BUN 12 10 19 CREATININE 0.82 0.75* 0.86 CALCIUM 9.0 9.1 9.4 MAGNESIUM 0.81 0.76 0.74 PHOS 3.2 3.7 5.0* AST 47* 65* 57* ALT 64* 80* 76* ALKPHOS 141* 128 133* BILITOT <0.2 <0.2 0.2 BILIDIR <0.2 <0.2 <0.2 Recent Labs 06/21/24 00506/20/245206/19/24 0410 WBC 7.52 5.59 6.86 HGB 12.9* 13.5* 13.8 HCT 39.9* 40.9 41.6 MCV 74.9* 74.4* 74.3* PLATELET 268 303 297 No results for input(s): PT, INR, PTT in the last 72 hours. Microbiology: Microbiology Results (Last 30 days) Procedure Component Value Units Date/Time Blood culture [[id number]] (Abnormal) Collected: 06/18/241899 Lab Status: Preliminary result [...] a previously preliminary verified report. Blood culture [[id number]] Collected: 06/18/241899 Lab Status: Preliminary result Specimen: [...] Center 07/20/2024 1:30 PM Eron Barriga MD [facility] [id number] * Attachments The following attachments cannot be sent through Care Everywhere. * Hyponatremia (Cambodian) documented in this encounter Medications at Time [...] 1 tablet by mouth nightly. 90 tablet 03/11/2018 zonisamide (ZONEGRAN) 100 mg Capsule Take 2 capsules by mouth nightly. 30 capsule 3 03/11/2018 QUEtiapine (SEROQUEL) 50 mg Tablet Take 1 tablet by mouth 2 times daily as needed. 60 tablet 03/11/2018 Diaper,Brief, Adult,Disposable Misc Daily 27/01 as needed for incontinence 90 each 03/11/2018 documented as of this encounter Progress [...] spent >30 minutes (Day of Discharge Code 47787) involved in the final examination of the patient, discussion of the hospital stay, instructions for continuing care to all relevant caregivers, and preparation of discharge records, prescriptions and referral forms. Plans Discharge to nursing home Follow-up scheduled with PCP and neurosurge Please [...] appropriate/able. Sunitha Sanderson PT, DPT, NCS Pager: [phone] Physical Therapy Inpatient Rehabilitation Department * Martinez [...] BP: (114-156)/(61-89) Respiratory Rate Resp: 16 Resp: [12-] SpO2 SpO2: 96 % SpO2: -- Ins/Outs: [...] 168 hours. No results for input(s): PHART, MDL3AEU, PO2ART, EUL9SXC in the last 168 hours. Microbiology: None [...] magnesium citrate AND Tap water enema Assessment/Plan: Arbam Burgos is a 34 y.o. male with [...] needed. Per discussion with Madeleine from the nursing home where he lives 06/17. She notes his [...] Code Status: FULL - Dispo: Back to nursing home when MR Martinez Reynolds MD Hospital medicine Service: 2900 [...] 168 hours. No results for input(s): PHART, YWF0VPP, PO2ART, TTB1ISN in the last 168 hours. Microbiology: None [...] needed. Per discussion with Madeleine from the nursing home where he lives 06/17. She notes his [...] Code Status: FULL - Dispo: Back to nursing home when Martinez Kain MD [facility] medicine Service: 2900 06/19/2024 * Shola Morris MD - 06/19/2024 10:15 AM EST Images from the original note were not included. Endocrinology Follow up Note Name: Abram Burgos Date: 06/19/24 Room: [address] [place] [address] Reason for Consult: panhypopituitarism HPI Abram Burgos [...] access to additional DDAVP dosing at his nursing home after speaking with Jennifer from the nursing home. Possibility of him having access to additional water/fluid intake over the last few weeks. Bettina said that this is possible given there is often healthcare economics consultant turnover and not everyone is up to date on what is recommended. He is on a 3.5 L restriction per day at the nursing home. Patient was continued on home dose of [...] - will need follow up with his Flash Drier Operator, Dr. Zaidi or Dr. Day Littlejohn at discharge Endocrinology will sign off at this time but are available for any questions or concerns during hisremaining hospital stay. Thank you for allowing us to participate in the care of this patient. Discussed with Dr. Morris. Crista Gill MD. PGY4 [facility] Endocrinology I have seen the patient and [...] take POat this time Shola Morris MD Trailer Techniciancoding specialist home health Endocrinology Section [facility] * Doris Judd MD - 06/19/2024 6:58 [...] glean yes and no Language: fluent in turkmen and with word finding difficulty Mood: awesome [...] not displayed. Last 3 LFTs Recent Labs 06/19/240 06/18/24 0126 06/17/24 1158 AST 57* 52* [...] seems that this struggle is also a taxicab driver of agitation, and one of the aspects that makes it hard for him to be here in the hospital. Meeting his physical comfort needs such as pain physical discomfort such as itching will also be important. 06/18/2024-Abram has been agitated overnight and has been un directable at times. Per collateral from his nursing home, this is a baseline that has been going on for many months. On learning of his nursing home regimen, not reflected in surescripts, we will [...] - start 600mg BID, titrate to MDD 5091-2953 in divided doses - monitor for increased respiratory secretions -discontinue depakote Patient on IEA Status? IEA: NO, patient is not an on IEA. Awaiting voluntary psychiatric placement but safety concerns exist if patient decides to leave and will require urgent psychiatric assessmentprior to discharge or leaving AMA. Recommendations were communicated to primary executive officer special warfare team Dr. Johnson. H Samson Judd MD 06/19/2024 [...] Minimal/Low [] Low [] Minimal/Low [] Low 40231 [] Moderate [] Moderate [] Moderate [] Moderate 92490 [] High [] High [] High [] High 70648 Final Coding Determination: Moderate * Pamela Jonhson DO - 06/18/2024 5:51 PM EST Inpatient [...] 168 hours. No results for input(s): PHART, QVT1QOK, PO2ART, NZQ8HZP in the last 168 hours. Microbiology: None [...] needed. Per discussion with Madeleine from the nursing home where he lives 06/17. She notes his [...] Code Status: FULL - Dispo: Back to nursing home when MR Pamela Corbin DO [facility] medicine Service: 2900 06/18/2024 * Jaja Chin [...] not medically ready but will return to nursing home when MR. [facility] [address] [place], [place] [address] Spoke with Jennifer Woods RN. Updated not anticipated discharge until next week. Will submit referralto [facility] to update facility with clinicals. Confirmed [facility] provides transport. * Sunitha Sanderson, PT - 06/18/2024 10:49 AM EST Physical Therapy Contact Note 06/18/24 4648 Evaluation & Treatment Document Type contact Total Minutes, Physical Therapy 0 Comment, Session Not Performed Checked in with nursing, pt awaiting stat HCT for somnolence. PT will defer and follow up as appropriate/able. Sunitha Sanderson, PT, DPT, NCS Pager: [phone] Physical Therapy Inpatient Rehabilitation Department * Zoë [...] mg at 22:55. His medications from his nursing home were shared by their staff, with his home medicationregimen being 200 XL seroquel nightly and 100 mg BID with 100 mg PRN daily and hetlioz 20 mg qHS and melatonin nightly. Per Dr. Benítez in conversation with Madeleine from his nursing home, Abram goes from 0-100 very quickly and will throw things and become agitated in his home setting, and that this has been going on for many months now. On interview this morning: Abram is lying in bed under the covers having his vitals checked. He denies pain, thoughts of hurting himself,f and denies needing anything at this time. His LOSS CONTROL TECHNICIAN at bedside shares that he has been [...] glean yes and no Language: fluent in turkmen and with word finding difficulty Mood: no [...] Last wbc, hgb, hct plt Recent Labs 06/18/24125 WBC 9.78* HGB 12.4* HCT 37.2* Last 3 wbc, hgb, hct plt Recent Labs 06/18/24 0126 06/17/24 0022 06/16/24 0009 WBC 9.78* 6.81 7.71 HGB 12.4* 12.9* 11.7* HCT 37.2* 37.9* 33.8* PLATELET 262 301 241 Last 3 Lytes Recent Labs 06/18/24 01206/17/24 1750 06/17/24 1158 06/17/24 0623 06/17/24 0022 [...] seems that this struggle is also a taxicab driver of agitation, and one of the aspects that makes it hard for him to be here in the hospital. Meeting his physical comfort needs such as pain physical discomfort such as itching will also be important. 06/18/2024-Abram has been agitated overnight and has been un directable at times. Per collateral from his nursing home, this is a baseline that has been going on for many months. On learning of his nursing home regimen, not reflected in surescripts, we will [...] leaving AMA. Recommendations were communicated to primary executive officer special warfare team Dr. Johnson. Jaja Chin MD 06/18/2024 Coding [...] Minimal/Low [] Low [] Minimal/Low [] Low 40389 [] Moderate [] Moderate [] Moderate [] Moderate 90102 [] High [] High [] High [] High 23195 Final Coding Determination: Moderate Associated attestation - [...] it as a standing medication at his nursing home). Given his mild increase in LFTs we [...] Brittny Hanna MD Department of Psychiatry Pager #[phone] * Pamela Johnson, - 06/17/2024 5:30 PM EST Inpatient Medicine [...] deficits grossly noted. Labs: Recent Labs 06/17/24 0022 06/16/24 0009 06/15/24 0006 WBC 6.81 7.71 6.30 HGB 12.9* 11.7* [...] 168 hours. No results for input(s): PHART, AAU4TGE, PO2ART, WHD3NBJ in the last 168 hours. Microbiology: None [...] 3L daily. Spoke to Madeleine from the [facility] where he lives. She notes his [...] Code Status: FULL - Dispo: Back to nursing home when MR GonzalezPamela E DO [facility] medicine Service: 2900 06/17/2024 * Roya Kingsley OT - 06/17/2024 9:42 AM EST Occupational [...] Surgical History: Procedure Laterality Date PRO OPEN EQUAL OPPORTUNITY DIRECTOR FIX ACETABULAR FX Left 09/04/2017 @OPEN TREATMENT, ACETABULAR FX (WRVU 25.41) performed by Amy Lance MD at [facility] MAIN OR Social History: Patient lives in a nursing home. Home Setup: accessible DME: none Baseline ADL/Mobility: [...] from EOB: min assist x 2 with EVENT TECHNICIAN Pt able to side step to L side ~4-5 steps with min assist x 2 using EVENT TECHNICIAN, cues provided for step initiation and sequencing Stand to sit x 2: min assist x 2 with EVENT TECHNICIAN Sit to supine: mod assist x 2 [...] minimal side steps to L side with EVENT TECHNICIAN. Unsure of pt's most recent functional status but anticipate pt will be able to return to his nursing home pending level of assistance they can provide. Pt will benefitfrom ongoing therapeutic interventions to achieve pt's and therapy goals. Anticipated Discharge Disposition (OT): other (see comments) (return to nursing home) Equipment Recommendations: Equipment Needs Upon Discharge (OT): [...] Minutes, Occupational Therapy: 28 (09:42-10:10 SCx2) Pager: [phone] TERRELL Isabel/Ramone Occupational Therapy Rehabilitation Department * Tomás Priest RN - 06/16/2024 8:58 PM EST Abram Burgos arrived to 349 @ 2100.Oriented to room, call morris within reach, educated on importance of using prior to getting OOB, AVSS, belongings updated in eDH, bed locked in low position, purposeful hourly rounding, bed/chair alarm on. * Ludivina Stover PT - 06/16/2024 9:34 AM EST Physical [...] EEG CONTINUOUS MONITORING INPATIENT 2024 PRO OPEN EQUAL OPPORTUNITY DIRECTOR FIX ACETABULAR FX Left 09/04/2017 @OPEN TREATMENT, ACETABULAR FX (WRVU 25.41) performed by Amy Lance MD at [facility] MAIN OR Social History: Home setup: Pt resides in an accessible nursing home in [facility] Baseline Mobility/Prior level of function: Had assistance for ADLs and IADLs, does not use a device. DME: unknown Precautions/Special Considerations: fall risk; activity as kendra; legally blind Activity Orders (From admission to next 72h) Start Ordered Unscheduled Activity as tolerated PRN 06/14/24 0057 No active infections No active isolations Patient Lines/Drains/Airways Status Active Tubes/Lines/Drains Name Placement date Placement time Site Days PIV 06/15/24244 20 gauge basilic vein (medial side of [...] to swing bed rehabilitation vs return to nursing home when medically stable, pending functional progress while in the hospital and level of care available at nursing home. Pt will benefit from ongoing physical therapy to address the above impairments and facilitate return to OF. Discharge Recommendations: Based on the current findings, Anticipated Discharge Disposition (PT): swing bed rehabilitation facility, adult foster care/nursing home when medically ready for hospital discharge. Plan: [...] (admitted for seizures; complex PMH; lives in nursing home) Examination of body system impairments, functional limitations and behaviors, and/or participation restrictions. Addressing 1-2 elements Addressing 3 + elements Addressing 4 + elements X Clinical presentation: See assessment above. Stable/Uncomplicated Evolving/Fluctuating Symptoms Unstable/Unpredictable X Clinical decision making of moderate complexity based on pt's functional performance as outlined inthis evaluation. Time IN / OUT: 0559-0358 Total Minutes, Physical Therapy: 30 (eval). Ludivina Stover PT DPT 06/16/2024 Pager: [phone] Physical Therapy Inpatient Rehabilitation Department * Christopher [...] seizures in the setting of hyponatremia and SOFTWARE SPECIALIST structural abnormalities. This most likely provoked by new hyponatremia rather than chronic structural brain disease. Our working theory is hyponatremia provoked by issues with fluid restriction at his nursing home, and it is so far improving at [...] minimumof two midnights or is on the [facility] inpatient only procedure list (status C) due to: monitoring of fluid status given an inability to regulate fluid balance and the need for administration or restriction of fluids and breakthrough seizures * Lauren Ruby MD - 06/16/2024 6:54 AM EST [facility] NEUROSURGERY PROGRESS NOTE ID: Abram Burgos [...] admit with jazmín of 122 while at [facility] thus far corrected to 131). Therefore no acute neurosurgical intervention warranted. We will follow up with the patient and hisfamily/legal guardian outpatient to discuss management options. We are signing off for now, rest ofcare per primary, but remain available at pager [phone] should further questions/concerns arise. Plan: -No acute neurosurgical intervention warranted -We are signing off now, but will follow up outpatient with patient/family to discuss management options -Rest of care per primary including frequency of neuro checks For questions please call NSGY pager [phone] Lauren Ruby MD 06/16/2024 7:22 AM Clinical Documentation Improvement: Active Hospital Problems Diagnosis Hyponatremia Resolved Hospital Problems No resolved problems to display. * Maxine Silverio PT - 2024 11:20 AM EST Physical [...] with him tomorrow. Maxine Silverio, PT Pager [phone] * Christopher Stanley MD - 2024 8:13 [...] seizures in the setting of hyponatremia and SOFTWARE SPECIALIST structural abnormalities. This most likely provoked by new hyponatremia rather than chronic structural brain disease, but as yet uncertain. Our working theory is hyponatremia provoked by issues with fluid restriction at his nursing home, and it is so far improving at [...] and documentation on the unit. * Maxine Silverio, PT - 06/14/2024 12:15 PM EST Physical Therapy Note 06/14/24 8976 Evaluation & Treatment Document Type contact Total [...] O2 Device RA Maxine Silverio, PT Pager [phone] * Wilder Davis - 06/14/2024 11:19 AM [...] adjusted based on our knowledge. Was at nursing home when he had ~2 minute tonic clonic seizure. Presented to [facility] where he was found to be hyponatremic. Given hypertonic saline and ativan and transferred to [facility]. Physical Exam Last value Range last 24 [...] seizures in the setting of hyponatremia and SOFTWARE SPECIALIST structural abnormalities. His hyponatremia is likely mixed: [...] Tubes/Lines/Drains: PIV Code Status: Full Communication: Updated bAram and his guardian at bedside Disposition: Observe [...] minimumof two midnights or is on the [facility] inpatient only procedure list (status C) due to: monitoring of fluid status given an inability to regulate fluid balance and the need for administration or restriction of fluids and seizur * Marline Calderon, MESS ATTENDANT CREW - 06/14/2024 6:42 AM EST Critical Care Progress Note Abram Burgos : 1990 Admitted: 06/14/2024 12:57 AM Hospital day: 0 ICU day: ID: Abram Burgos is a 33 y.o. 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 He was found to be hypon atremic to 121 (from apparent baseline in 140s). At [facility] he received 150cc 3% NaCl and 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 He wastransferred to [facility] where sodium of 122 was treated with 50cc 3%NaCl and Neutra-Phos. No evidence of seizure since arrival. Neurology, neurosurgery, and endocrine teams were consulted. Hospital/ICU course has been significant for: #Hyponatremia #Seizure Activity (prior to arrival at [facility]) #possible enlarging lesion in R middle cranial fossa 24-hour events: -Transferred to [facility] -Na treated with 3% (once at OSH, [...] Line): -- No results for input(s): PHART, BKW3AHT, PO2ART, EQH1DQC in the last 168 hours. Intake/Output Summary [...] clear culprit meds on his list.At his nursing home he is maintained on a 3.5L fluid [...] Lizeth Calderon APRN June 14, 2024 Pager #[phone] Critical Care Green Team documented in this [...] with seizures. The patient was transferred from [facility] from a nursing home ([facility]) for a seizure. He had been in his usual state of health, though notably he did have COVID within the past month. He reported that he had not been missing any of his medications, however due to some recent behavioral troubles and problems with sleeping, some of his medications have been altered recently. Hospital course notable for: Hyponatremia: Presented to [facility] following witnessed tonic-clonic seizure at [facility], found to have sodium of 122. On [...] in September 2023. On second read of [facility] scan described as hypoattenuating, likely cystic mass [...] Seizures: 2 min tonic-clonic seizure witnessed at nursing home, 30 sec seziure at [facility] ED (2mg ativangiven). None since arrival to [...] EEG CONTINUOUS MONITORING INPATIENT 2024 PRO OPEN EQUAL OPPORTUNITY DIRECTOR FIX ACETABULAR FX Left 09/04/2017 @OPEN TREATMENT, ACETABULAR FX (WRVU 25.41) performed by Amy Lance MD at [facility] MAIN OR Social History: Social History Socioeconomic [...] file Social History Narrative Lives at the [facility], moved in 11/07/2014. Social Determinants of Health [...] tablet 3 Unknown Diaper,Brief, Adult,Disposable Misc Daily 27/01 as needed [...] %] I/O last 3 completed shifts: In: 1777 [P.O.:1170; I.V.:608] Out: 1874 [Urine:1874] Gen: Alert [...] Lymph: no cervical/supraclavicular/axillary lympha LABS: Recent Labs 06/16/24806/15/24506/14/24 05 WBC 7.71 6.30 8.68 HGB 11.7* 11.9* 12.5* HCT 33.8* 34.2* 35.8* PLATELET 241 269 284 Recent Labs 06/16/24 0600 06/16/24 00006/15/24 1758 06/15/24 0554 06/15/24506/14/24 0806 06/14/24 05 NA 131* 131* 129* < > 128* < > 124* K -- 3.9 -- -- 4.1 -- 4.0 CL -- 99 -- -- 97* -- 93* CO2 -- 22 -- -- 19* -- 19* BUN -- 12 -- -- 14 -- 14 CREATININE -- 0.92 -- -- 0.74* -- 0.76* < > = values in this interval not displayed. Recent Labs 06/16/24806/15/24506/14/24526 CALCIUM 8.3* 8.1* 7.9* MAGNESIUM 0.85 0.79 [...] 06/14/2024 4:02 AM) Result Value WORKSTATION ID [id number] Narrative EXAMINATION: XR CHEST ONE VIEW CLINICAL [...] who have questions please contact the health coronary care unit nurse that requested your imaging first. Electronically signed by: Beverley Valencia MD, [facility] ([phone]), at 06/14/2024 4:32 AM Request For 2nd Read CT Head (Exam End: 06/14/2024 9:46 AM) Result Value WORKSTATION ID [id number] Narrative EXAMINATION: REQUEST FOR 2ND READ CT HEAD CLINICAL HISTORY: New seizure with known mass, ?enlargening. Presenting with seizure; Sending Institution [facility]; Date of exam [id number]; I believe a reinterpretation of this exam may alter care of Patient. Yes TECHNIQUE: Reinterpretation of noncontrast CT head performed at [facility] 06/13/2024 at 2143 hours COMPARISON: [...] who have questions please contact the health coronary care unit nurse that requested your imaging first. Brain wwo Contrast (Generic) (Exam End: 2024 4:20 PM) Result Value WORKSTATION ID [id number] Narrative EXAMINATION: MRI BRAIN WWO CONTRAST (GENERIC) [...] clip with its blades near the right TEST TECH. Impression Homogeneously enhancing 3.5 cm mass along [...] who have questions please contact the health coronary care unit nurse that requested your imaging first. Electronically signed by: Raudel Heredia MD, [facility] ([phone]), at 2024 4:46 PM ASSESSMENT and PLAN: [...] Tim Yuen MD Internal Medicine PGY-2 Pager: [phone] 06/16/24 Associated attestation - Channing Ballesteros MD [...] with seizures. HPI: Per report presented to [facility] from a nursing home ([facility]) for seizure. He has been in his usual state of health although did have covid within the past month. He has been taking his medications as prescribed although due to behavioral troubles and problems sleeping some of his medications have been altered recently. This afternoon at his nursing home he had a two minute whitnesses tonic [...] encephalomalacia Interventions that the pt received at [facility] included 150cc 3% NaCl, 100mg of hydrocortisone and a dose (unknown amount) of desmopressin. [facility] [place]. Neuro critical care [...] Surgical History: Procedure Laterality Date PRO OPEN EQUAL OPPORTUNITY DIRECTOR FIX ACETABULAR FX Left 09/04/2017 @OPEN TREATMENT, ACETABULAR FX (WRVU 25.41) performed by Amy Lance MD at [facility] MAIN OR No family history on file. Social History: Lives in a nursing home. Ventilator Settings: Room air. Physical Exam: General: [...] 127 from the time of arrival to [facility] Should attempt 6mMol/L increase in Na every [...] date Placement time Site Days PIV 06/14/24 011 18 gauge median cubital vein (antecubital fossa), right 06/14/24 011 -- less than 1 Consults: Endocrinology and neurology. Decision Making: Guardian, Bettina Code Status: Full IS PATIENT CRITICALLY ILL [...] NAKIA Blair June 14, 2024 Critical Care Green Team (pager [phone]) Dr. Alfred is the attending of record for this admission documented in this encounter Procedure Notes * Camron Gee MD - 2024 5:19 PM ESTProcedure(s): EEG CONTINUOUS MONITORING INPATIENT [facility] Department of Neurology Inpatient Continuous Video EEG Tail Report Name of the Patient: Abram Burgos Date of : 1990 Patient Location: [facility] Date of Service: 2024 Referring physician: Marline [...] EKG. Video was recorded during the session. CUSHION COVER INSPECTOR'S REPORT: Performed by: At the onset of [...] seen during this epoch. Rashard Navarrete MD FISH STRAIGHTENER Fellow, PGY-5 2024 EPILEPSY ATTENDING ADDENDUM - I reviewed the EEG with the FISH STRAIGHTENER/Epilepsy fellow, and I agree with the interpretation as documented. Camron Gee MD, PhD Professor of Neurology [facility] Clinical Neurophysiology Laboratory [facility] O * Rashard Navarrete MD - 06/14/2024 3:33 PM ESTAssociated Order(s): [...] Castrejon MD - 06/14/2024 3:03 PM EST [facility] Department of Neurology Inpatient Continuous Video EEG Report Name of the Patient: Abram Burgos Date of : 1990 [facility] Date of Service: 06/14/2024 Referring physician: Marline Calderon Fellow: MD Gladys [...] EKG. Video was recorded during the session. CUSHION COVER INSPECTOR'S REPORT: Performed by: At the onset of [...] seen during this epoch. Rashard Navarrete MD FISH STRAIGHTENER Fellow, PGY-5 06/14/2024 Associated attestation - Camron Gee MD - 2024 1:03 PM EST EPILEPSY ATTENDING ADDENDUM - I reviewed the EEG with the FISH STRAIGHTENER/Epilepsy fellow, and I agree with the interpretation as documented. Given the lack of evidence for underlying epileptic seizures from this recording of ~24 hours, we'd recommend considering discontinuing the CEEG study. We are available to discuss this matter with the Neurology consultation and inpatient bravo team. Camron Gee MD, PhD Professor of Neurology [facility] Clinical Neurophysiology Laboratory [facility] documented in this encounter Miscellaneous Notes * Plan of Care - Bell Amezcua RN - 06/21/2024 3:04 PM EST Abram Burgos discharged to correction by care facility's vehicle with staff from nursing home. All belongings sent with patient. ALLISON removed, [...] Patient is medically ready for discharge to [facility] [address] [place], [place] [address] . Air Analysis Engineering Technician: Kemi Noriega at [facility] will be picking him up. I also spoke with Bettina Burgoshis Guardian to give her updates. Needs for Transition of Care: Plan for discharge is: Penitentiary Facility / Swing Outpatient Agency/Support Group Needs: [facility] Agency Referrals & Follow-up Care: Transportation: Air Analysis Engineering Technician: Kemi Noriega at [facility] will be picking him up. I also spoke with Bettina Aubrey his Guardian to give her updates Wheelchair van/Ambulance? No Functional status prior to admission: Assistive Equipment and Assistive Person Home Environment: Others in the home: other (see comments) (Lives in a nursing home.). Current LivingArrangements: nursing home. Accessibility Concerns:Easy access to his surroundings. Fully [...] plan was formulated with input from patient, Air Analysis Engineering Technician: Kemi Noriega at [facility] will be picking him up. I also spoke with Bettina Mickitomy his Guardian to give her updates and team Dr. Reynolds. All are in agreement with plan. Sudarshan Marie GENERAL EXPEDITOR CCM * Plan of Care - Erik Dumont [...] better mood today, less agitation. Visitor from nursing home. Downgraded to med surg. PLAN MOVING FORWARD: [...] - 06/18/2024 Admit date: 06/14/2024 Attending: Pamela Johnson, ID: Abram Kim Aubrey is a 34 [...] been altered recently. This afternoon at his nursing home he had a two minutewitnessed tonic clonic [...] nightly to twice daily dosing at his nursing home, which she had not been on before. 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 Sister reports that he has had low sodium in the past, she believes in the 120s or lower, but has not triggered seizures in the past. Patient has previously been seen at [facility] in 2014. His deficits at that time included left hemiparesis, cortical blindness, urine incontinence, dysarthria and gait disorder. 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 According to [facility] documentation, he had a spell at his nursing home that was concerning for seizure one month prior to his visit. BG at the time was in the 40s and he was started on Keppra in addition to Zonegran. [facility] neurologist planned for discontinuation of Keppra at [...] tablet 200 mg 200 mg Oral Nightly Raicek, Pamela E, DO QUEtiapine (Seroquel) tablet 100 mg 100 mg Oral BID Raicek, Pamela E, DO QUEtiapine (Seroquel) tablet 50 mg 50 mg Oral Daily PRN RaCarla jaramilloline E, DO melatonin tablet 10.5 mg 10.5 mg Oral Nightly Raicek, Pamela E, DO haloperidoL lactate (Haldol) (5 mg/mL) injection 2 mg 2 mg Intramuscular BID PRN Flyod Johnson, DO acetaminophen (Tylenol) tablet 975 mg 975 mg Oral Q6H PRN Samantha Babb MD 975 mg at 06/17/24 2332 polyethylene glycoL (Miralax) packet 17 g 17 g Oral BID Pamela Johnson E, DO 17 g at 06/17/242011 senna-docusate (Pericolace) 8.6-50 mg per tablet 2 tablet 2 tablet Oral BID Tim Yuen MD 2 tablet at 06/17/242011 polyethylene glycoL (Miralax) packet 17 g 17 g Oral Daily PRN Tim Yuen MD And bisacodyL (Dulcolax) suppository 10 mg 10 mg Rectal Daily PRN Tim Yuen MD 10 mg at 826 And bisacodyL EC (Dulcolax) tablet 10 mg 10 mg Oral BID PRN Tim Yuen MD 10 mg at 06/17/24 175 And lactulose (Chronulac) (0.67 gram/mL) oral liquid [...] Daily Tim Yuen MD 200 mcg at 619 pantoprazole EC (Protonix) tablet 40 mg 40 mg Oral Daily Tim Yuen MD 40 mg at 06/17/2408 desmopressin (Ddavp) tablet 0.1 mg 0.1 mg Oral Daily Tim Yuen MD 0.1 mg at 06/16/2424 desmopressin (Ddavp) tablet 0.15 mg 0.15 mg Oral Nightly Tim Yuen MD 0.15 mg at 06/17/242117 heparin (porcine) (5,000 units/1 mL) subcutaneous injection 5,000 Units 5,000 Units Subcutaneous 2 times per day Tim Yuen MD 5,000 Units at 06/18/24935 traZODone (Desyrel) tablet 100 mg 100 mg [...] MRI WITH ANESTHESIA (WRVU *) performed by JERSEY ANESTHESIA-GEORGIE at [facility] [place]IE PRO OPEN EQUAL OPPORTUNITY DIRECTOR FIX ACETABULAR FX Left 09/04/2017 @OPEN TREATMENT, ACETABULAR FX (WRVU 25.41) performed by Amy Lance MD at [facility] MAIN OR Allergies: Allergies Allergen Reactions Lopid [...] gaze No facial asymmetry Able to weakly computer bookkeeper BL hands 2/5, wiggles BL toes to command Labs: Last wbc, hgb, hct plt Recent Labs 06/18/24 012 WBC 9.78* HGB 12.4* HCT 37.2* Last [...] Last Ca, Mg, Phos Recent Labs 06/18/24 012 CALCIUM 9.3 PHOS 5.7* MAGNESIUM 0.84 Last 3 Coags No results for input(s): PT, INR, PTT in the last 168 hours. Diagnostic Tests and Imaging: Results for orders placed or performed during the hospital encounter of 06/14/24 XR Chest One View (Exam End: 06/14/2024 4:02 AM) Result Value WORKSTATION ID [id number] Impression Low lung volumes with crowding of bronchovascular markings without radiographically evident acute cardiopulmonary process. Thank you for letting us participate in the care of this patient. If you are a health care provider and have any questions regarding this report, please contact the number below. For patients who have questions please contact the health coronary care unit nurse that requested your imaging first. Electronically signed by: Beverley Valencia MD, [facility] ([phone]), at 06/14/2024 4:32 AM Request For 2nd Read CT Head (Exam End: 06/14/2024 9:46 AM) Result Value WORKSTATION ID [id number] Impression Hypoattenuating, likely cystic mass appears to [...] who have questions please contact the health coronary care unit nurse that requested your imaging first. Brain wwo Contrast (Generic) (Exam End: 2024 4:20 PM) Result Value WORKSTATION ID [id number] Impression Homogeneously enhancing 3.5 cm mass along [...] who have questions please contact the health coronary care unit nurse that requested your imaging first. Electronically signed by: Raudel Heredia MD, [facility] ([phone]), at 2024 4:46 PM Assessment: Abram Burgos [...] Qtc within normal limits. Staff member from nursing home came to visit. Scheduled medications adjusted. PLAN [...] Implemented as Appropriate) * Consult Note - SandraAmerico - 06/17/2024 7:23 AM EST Neurology Inpatient Consult Note - 06/17/2024 Admit date: 06/14/2024 Attending: Pamela Johnson, ID: Abram Kim Aubrey is a 34 [...] normal sats I/O: 06/16 0701 - 06/17 07 In: 1170 [P.O.:1160; I.V.:10] Out: 650 [Urine:650] [...] focal atrophy Arm flexion 5/5 b/l Hand computer bookkeeper 5/5 b/l Able to wiggle toes Reflexes: [...] Neurology to sign off Americo Flores, MS4 [employer] * Care Management - Raudel [...] Guardian Name: Bettina Burgos-sister Guardian Contact Information: [phone] Financial Decision Maker: Guardian Guardianship paperwork on file: 1 Guardian Name: see above Guardian Contact Information: see above Functional status prior to admission: Assistive Equipment and Assistive Person Home Environment: Others in the home: other (see comments) (Lives in a nursing home.). Current LivingArrangements: nursing home. Accessibility Concerns: Easy access to his surroundings. [...] Recommendation: swing bed rehabilitation facility, adult foster care/nursing home with to be determined Last Occupational Therapy Recommendation: adult foster care/nursing home (pending on progress) with to be determined Plan for discharge is: Penitentiary Facility / Swing Transition Plan for After Rehab: [facility] Outpatient Agency/Support Group Needs: [facility] Agency Choices: [facility] Agency Referrals: Current referrals placed to: N/A Transportation: Barriers to discharge: Global: Discharge planning Global Comment: Coordination of returning to nursing home Items to Consider for Discharge: Pt's sister and guardian Bettina Burgos has given permission for the following people from his [facility] to receive updates: Lives in [facility]) -Kemi Hari -[facility] family preservation caseworker -Ladonna Tate -Jennifer Woods -[facility] RN CM Interventions today: CM is notified [...] hx patient anticipated to go return to [facility]) with possible VNA services on top what is already offered. The patient's sister and guardian Bettina Burgos as assisting with dispo coordination. CM will continue to monitor progress, follow for continuity of care, and assist with discharge planning while patient is inpatient status on current unit. Investigate address and contact information for [facility]) and place referral so they have updated information to review to assist in dispo Review team recommendations and place referrals for VNA if medical status changes after treatments/interventions. Monitor and update referrals Anticipated Date of Discharge: 06/18/2024 Raudel Tate RN Case Exterminator Helper of Care Management * Consult Note - [...] been altered recently. This afternoon at his nursing home he had a two minutewitnessed tonic clonic [...] nightly to twice daily dosing at his nursing home, which she had not been on before. 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 Sister reports that he has had low sodium in the past, she believes in the 120s or lower, but has not triggered seizures in the past. Patient has previously been seen at [facility] in 2015. His deficits at that time included left hemiparesis, cortical blindness, urine incontinence, dysarthria and gait disorder. 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 According to [facility] documentation, he had a spell at his nursing home that was concerning for seizure one month prior to his visit. BG at the time was in the 40s and he was started on Keppra in addition to Zonegran. [facility] neurologist planned for discontinuation of Keppra at [...] mg Oral BID PRN Tim Yuen MD And lactulose (Chronulac) [...] dinner Tim Yuen MD 10 mg at 06/16/24 1541 hydrocortisone (Cortef) tablet 20 mg 20 mg Oral QAM Tim Yuen MD 20 mg at 06/16/2424 levothyroxine (Synthroid) tablet 200 mcg 200 mcg Oral Daily Tim Yuen MD 200 mcg at 610 pantoprazole EC (Protonix) tablet 40 mg 40 mg Oral Daily Tim Yuen MD 40 mg at 06/16/24922 desmopressin (Ddavp) tablet 0.1 mg 0.1 mg [...] Tim Yuen MD 10 mg at 06/16/24 09 LORazepam (Ativan) (2 mg/mL) injection 2 mg [...] EEG CONTINUOUS MONITORING INPATIENT 2024 PRO OPEN EQUAL OPPORTUNITY DIRECTOR FIX ACETABULAR FX Left 09/04/2017 @OPEN TREATMENT, ACETABULAR FX (WRVU 25.41) performed by Amy Lance MD at [facility] MAIN OR Allergies: Allergies Allergen Reactions Lopid [...] %-100 %] I/O: 06/16 0701 - 06/17 07 In: 1170 [P.O.:1160; I.V.:10] Out: 650 [Urine:650] [...] 06/14/2024 4:02 AM) Result Value WORKSTATION ID [id number] Impression Low lung volumes with crowding of bronchovascular markings without radiographically evident acute cardiopulmonary process. Thank you for letting us participate in the care of this patient. If you are a health care provider and have any questions regarding this report, please contact the number below. For patients who have questions please contact the health coronary care unit nurse that requested your imaging first. Electronically signed by: Beverley Valencia MD, [facility] ([phone]), at 06/14/2024 4:32 AM Request For 2nd Read CT Head (Exam End: 06/14/2024 9:46 AM) Result Value WORKSTATION ID [id number] Impression Hypoattenuating, likely cystic mass appears to [...] who have questions please contact the health coronary care unit nurse that requested your imaging first. Brain wwo Contrast (Generic) (Exam End: 2024 4:20 PM) Result Value WORKSTATION ID [id number] Impression Homogeneously enhancing 3.5 cm mass along [...] who have questions please contact the health coronary care unit nurse that requested your imaging first. Electronically signed by: Raudel Heredia MD, [facility] ([phone]), at 2024 4:46 PM Assessment: Abram Burgos [...] Holland MD Neurology, PGY-3 Consult Neurology Service #[id number] 06/17/2024 ATTENDING NOTE: I reviewed the pertinent [...] tends to do much better at his nursing home than the hospital environment as he is [...] EEG CONTINUOUS MONITORING INPATIENT 2024 PRO OPEN EQUAL OPPORTUNITY DIRECTOR FIX ACETABULAR FX Left 09/04/2017 @OPEN TREATMENT, ACETABULAR FX (WRVU 25.41) performed by Amy Lance MD at [facility] MAIN OR Allergies: Allergies Allergen Reactions Lopid [...] on RA. I/O: 06/15 0701 - 06/16 07 In: 1550 [P.O.:1050; I.V.:500] Out: 1325 [Urine:1325] [...] focal atrophy Arm flexion 5/5 b/l Hand computer bookkeeper 5/5 b/l Able to wiggle toes Reflexes: [...] will continue to follow. Americo Flores, MS4 [facility] * Consult Note - Kellen Braxton MD [...] been altered recently. This afternoon at his nursing home he had a two minutewitnessed tonic clonic [...] nightly to twice daily dosing at his nursing home, which she had not been on before. 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 Sister reports that he has had low sodium in the past, she believes in the 120s or lower, but has not triggered seizures in the past. Patient has previously been seen at [facility] in 2014. His deficits at that time included left hemiparesis, cortical blindness, urine incontinence, dysarthria and gait disorder. 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 According to [facility] documentation, he had a spell at his nursing home that was concerning for seizure one month prior to his visit. BG at the time was in the 40s and he was started on Keppra in addition to Zonegran. [facility] neurologist planned for discontinuation of Keppra at [...] Daily Minerva Small PA 81 mg at 06/15/24938 atorvastatin (Lipitor) tablet 40 mg 40 mg Oral QPM Minerva Small PA 40 mg at 06/15/241858 hydrocortisone (Cortef) tablet 10 mg 10 mg Oral Daily before dinner Minerva Small PA 10 mg at 06/15/241858 hydrocortisone (Cortef) tablet 20 mg 20 mg Oral QAM Minerva Small PA 20 mg at 06/15/24931 levothyroxine (Synthroid) tablet 200 mcg 200 mcg Oral Daily Minerva Small PA 200 mcg at 06/15/24507 pantoprazole EC (Protonix) tablet 40 mg 40 mg Oral Daily Minerva Small PA 40 mg at 06/15/24938 desmopressin (Ddavp) tablet 0.1 mg 0.1 mg Oral Daily Minerva Small PA 0.1 mg at 06/15/24931 desmopressin (Ddavp) tablet 0.15 mg 0.15 mg [...] Nightly Minerva Small PA 400 mg at 06/15/242029 Home Medications: No current facility-administered medications on [...] EEG CONTINUOUS MONITORING INPATIENT 2024 PRO OPEN EQUAL OPPORTUNITY DIRECTOR FIX ACETABULAR FX Left 09/04/2017 @OPEN TREATMENT, ACETABULAR FX (WRVU 25.41) performed by Amy Lance MD at [facility] MAIN OR Allergies: Allergies Allergen Reactions Lopid [...] 06/14/2024 4:02 AM) Result Value WORKSTATION ID [id number] Impression Low lung volumes with crowding of bronchovascular markings without radiographically evident acute cardiopulmonary process. Thank you for letting us participate in the care of this patient. If you are a health care provider and have any questions regarding this report, please contact the number below. For patients who have questions please contact the health coronary care unit nurse that requested your imaging first. Electronically signed by: Beverley Valencia MD, [facility] ([phone]), at 06/14/2024 4:32 AM Request For 2nd Read CT Head (Exam End: 06/14/2024 9:46 AM) Result Value WORKSTATION ID [id number] Impression Hypoattenuating, likely cystic mass appears to [...] who have questions please contact the health coronary care unit nurse that requested your imaging first. Brain wwo Contrast (Generic) (Exam End: 2024 4:20 PM) Result Value WORKSTATION ID [id number] Impression Homogeneously enhancing 3.5 cm mass along [...] who have questions please contact the health coronary care unit nurse that requested your imaging first. Electronically signed by: Raudel Heredia MD, [facility] ([phone]), at 2024 4:46 PM Assessment: Abram Burgos [...] altered mental status prior to presentation is insurance verification representative of ongoing seizures at home. This [...] once nightly to twice daily by his nursing home. He may need titration of medicationsto promote [...] * Plan of Care - Carlos Alberto Wilson RN - 06/16/2024 4:27 AM EST Problem: [...] nurse, medical record, and Guardian (Spoke with Bettina-Guardian) This BONE PLANT SUPERVISOR Introduced self/reviewed role; services accepted. Admitted From: Transfer from another hospital Location: [facility] Reason for Hospitalization: Per sister, patient had seizure activity for the first time in 9 years.EMS called. Past medical History: No past medical history on file. Hospitalizations Within the Past 30 Days: no previous admission in last 30 days Current Decision-Making Capacity: Guardian Name(s): Bettina Burgos Contact Information: [phone] (cell) Proxy Activated: Yes Paperwork on file?: [...] home: other (see comments) (Lives in a nursing home.). Current LivingArrangements: nursing home. Accessibility Concerns:Easy access to his surroundings. Fully supported.. In the last 12 months, was there a time when you were not able to pay the mortgage or rent on time?: No In the past 12 months, how many times have you moved where you were living?: 0 At any time in the past 12 months, were you homeless or living in a skilled nursing (including now)?: No In the past 12 months has the [facility], gas, oil, or water [employer] threatened to shut off services in your [...] at times) Home Address confirmed as: [address] [facility] [place] [address] Attn: Lia [facility] [address] Social & Family Supports: All names listed below confirmed with patient as current and correct Extended Emergency Contact Information Primary Emergency Contact: Bettina Burgos Address: [address] [place] [address] [facility] Relation: Guardianship Secondary Emergency Contact: Lc Merlos [facility] Relation: Other Current Care Provided by: [facility] Provides Primary Care For: no one, unable/limited ability to care for self Caregiver if needed: other (see comments) ([facility]) Quality of Family relationships: supportive, involved Community Resources being provided currently: nursing home Behavioral Health History: Per chart review, Pt [...] N/A ; Prescription Coverage: Yes Preferred Pharmacy: [facility] - [place], [place] - [address] [facility] [address] [facility] [address] [place], [place] [address] [address] [address] [facility] [place], [place] - [address] [id number] [facility] [address] [place] Status: Patient is a : No Primary Care Provider confirmed: Ren Vaz MD [phone] Patient/Caregiver Goals of Treatment: Anticipating return to nursing home when medically ready Potential Needs for Transition of Care: none Agency Referrals: [facility] Transportation: no concerns Transportation Anticipated: agency Concerns to be Addressed: other (see comments) (Needing transportation via [facility] at discharge) Assessment: Patient is admitted to service for Hyponatremia Pt is a 34 year dependent male, living in a nursing home. Pt guardian is his sister, Bettina. Bettina is very involved and supportive. Guardianship paperwork is on file. Pt is cared for by his group homestaff while his finances remain in the care of his guardian. [facility] The nursing home will reach out with any information regarding this. Plan going forward: Pending hospital course Care Management team will continue to follow and assist with discharge planing and coordination of care as indicated. JAMSHID Ramirez Medicine SW Pager [phone] * Consult Note - Kellen Braxton MD [...] been altered recently. This afternoon at his nursing home he had a two minutewitnessed tonic clonic [...] nightly to twice daily dosing at his nursing home, which she had not been on before. 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 Sister reports that he has had low sodium in the past, she believes in the 120s or lower, but has not triggered seizures in the past. Patient has previously been seen at [facility] in 2014. His deficits at that time included left hemiparesis, cortical blindness, urine incontinence, dysarthria and gait disorder. 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 According to [facility] documentation, he had a spell at his nursing home that was concerning for seizure one month prior to his visit. BG at the time was in the 40s and he was started on Keppra in addition to Zonegran. [facility] neurologist planned for discontinuation of Keppra at [...] Daily Minerva Small PA 200 mcg at 06/15/24507 pantoprazole EC (Protonix) tablet 40 mg 40 [...] Continuous Marline Calderon APRN Paused at 06/15/24 0531 Home Medications: No current facility-administered medications on [...] Surgical History: Procedure Laterality Date PRO OPEN EQUAL OPPORTUNITY DIRECTOR FIX ACETABULAR FX Left 09/04/2017 @OPEN TREATMENT, ACETABULAR FX (WRVU 25.41) performed by Amy Lance MD at [facility] MAIN OR Allergies: Allergies Allergen Reactions Lopid [...] 06/14/2024 4:02 AM) Result Value WORKSTATION ID [id number] Impression Low lung volumes with crowding of bronchovascular markings without radiographically evident acute cardiopulmonary process. Thank you for letting us participate in the care of this patient. If you are a health care provider and have any questions regarding this report, please contact the number below. For patients who have questions please contact the health coronary care unit nurse that requested your imaging first. Electronically signed by: Beverley Valencia MD, [facility] ([phone]), at 06/14/2024 4:32 AM Request For 2nd Read CT Head (Exam End: 06/14/2024 9:46 AM) Result Value WORKSTATION ID [id number] Impression Hypoattenuating, likely cystic mass appears to [...] who have questions please contact the health coronary care unit nurse that requested your imaging first. Assessment: Abram Burgos is a 34 y.o. 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 cvEEG thus far shows right hemispheric slowing [...] Holland MD Neurology, PGY-3 Consult Neurology Service #[id number] 2024 ATTENDING NOTE: I reviewed the pertinent [...] Kirkpatrick MD - 06/14/2024 11:59 AM EST [facility] NEUROSURGERY CONSULT NOTE ID: Abram Judy Aubrey 33 y.o. male : 1990 Consult Requesting Service: Critical Care Consult Requesting Attending: MARIOLA ALFRED RICHARD K PCP: Ren Vaz MD Time of consultation: 11:45 Time of patient evaluation: 12:30 Reason for consultation: Possible mass in R middle fossa, seizure HISTORY OF PRESENT ILLNESS: Abram Burgos is a 33 y.o. 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 Neurosurgery is consulted for a 3 cm hypodensity in the anterior right middle fossa. He lives at a nursing home. This past weekend, he was in his normal state of health when he had a witnessed 2 minute seizure, reportedly with generalized stiffening. He was brought to [facility], where he was found to have Na of 121. He had a tongue laceration. In the ED there he had an additional witnessed seizure. He was transferred to the [facility] for a higher level of care [...] underwent tumor resection with Dr. Álvarez at [facility]. This was complicated by arterial bleeding with [...] Surgical History: Procedure Laterality Date PRO OPEN EQUAL OPPORTUNITY DIRECTOR FIX ACETABULAR FX Left 09/04/2017 @OPEN TREATMENT, ACETABULAR FX (WRVU 25.41) performed by Amy Lance MD at [facility] MAIN OR MEDICATIONS: No current facility-administered medications [...] file Social History Narrative Lives at the [facility], moved in 11/07/2014. Social Determinants of Health [...] found for: INR, PT, PTT IMAGINnd read CTH, 06/14 IMPRESSION Hypoattenuating, likely cystic mass appears [...] neurosurgery attending. No future appointments. Neurosurgery Pager: [phone] Gonzalez Kirkpatrick MD Neurosurgery PGY-1 06/14/2024 6:44 [...] Surgical History: Procedure Laterality Date PRO OPEN EQUAL OPPORTUNITY DIRECTOR FIX ACETABULAR FX Left 09/04/2017 @OPEN TREATMENT, ACETABULAR FX (WRVU 25.41) performed by Amy Lance MD at [facility] MAIN OR Social History: Patient lives in a nursing home. Home Setup: accessible DME: none Baseline ADL/Mobility: [...] Sit to stand: CGA x2 handhold Ambulation: CGA x2 handhold for [id number] transfer EOB<>commode Stand to sit: CGA Sit [...] be determined Anticipated Discharge Dispostion: adult foster care/nursing home (pending on progress) Other Recommendations: Open shades [...] Discharge planning. Total Minutes, Occupational Therapy: 16 ([id number] (evaluation)) 2017 OT Evaluation Code Rationale: Diagnosis [...] and measurable assessment of functional outcome. Pager: [phone] Dinorah Navas OTR/L 06/14/2024 Occupational Therapy Rehabilitation [...] follows with Dr. Zaidi of Endocrinology at [facility]. Recently saw a covering provider, Day Littlejohn in March 2024. He currently resides in a nursing home, [facility] where nurses and medical assistants provide [...] Surgical History: Procedure Laterality Date PRO OPEN EQUAL OPPORTUNITY DIRECTOR FIX ACETABULAR FX Left 09/04/2017 @OPEN TREATMENT, ACETABULAR FX (WRVU 25.41) performed by Amy Lance MD at [facility] MAIN OR No family history on file. [...] file Social History Narrative Lives at the [facility], moved in 11/07/2014. Social Determinants of Health [...] access to additional DDAVP dosing at his nursing home. Pos sibility of him having access to additional water/fluid intake over the last few weeks. Patients sister and legal guardian said that this is possible given there is often healthcare economics consultant turnover and not everyone is up to [...] with Dr. Morris. Crista Gill MD. PGY4 [facility] Endocrinology Pager #[phone] I have seen the patient and reviewed [...] is effective and safe Shola Morris MD Trailer Techniciancoding specialist home health Endocrinology Section [facility] * Consult Note - Kellen Braxton MD - 06/14/2024 6:49 AM EST Neurology Inpatient Consult Note - 06/14/2024 Admit date: 06/14/2024 Attending: Mariola Alfred MD ID: Abram Kim Aubrey is a 33 y.o. male with [...] been altered recently. This afternoon at his nursing home he had a two minutewitnessed tonic clonic [...] nightly to twice daily dosing at his nursing home, which she had not been on before. 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 Sister reports that he has had low sodium in the past, she believes in the 120s or lower, but has not triggered seizures in the past. Patient has previously been seen at [facility] in 2014. His deficits at that time included left hemiparesis, cortical blindness, urine incontinence, dysarthria and gait disorder. 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 According to [facility] documentation, he had a spell at his nursing home that was concerning for seizure one month prior to his visit. BG at the time was in the 40s and he was started on Keppra in addition to Zonegran. [facility] neurologist planned for discontinuation of Keppra at [...] Surgical History: Procedure Laterality Date PRO OPEN EQUAL OPPORTUNITY DIRECTOR FIX ACETABULAR FX Left 09/04/2017 @OPEN TREATMENT, ACETABULAR FX (WRVU 25.41) performed by Amy Lance MD at [facility] MA[facility] OR Allergies: Allergies Allergen Reactions Lopid [...] % SpO2: [93 %-98 %] I/O: 06/13 0701 - 06/14 0700 In: 60 [P.O.:60] Out: 0 Extremities: Excoriations [...] digitorum profundus Digit II-V flexion / senior budget analyst 5 5 L2-3 Iliopsoas Hip flexion 5 [...] 3 Lytes Recent Labs 06/14/2452606/14/24 0332 06/14/24 0103 NA 124* 122* 123* K 4.0 -- [...] 06/14/2024 4:02 AM) Result Value WORKSTATION ID [id number] Impression Low lung volumes with crowding of bronchovascular markings without radiographically evident acute cardiopulmonary process. Thank you for letting us participate in the care of this patient. If you are a health care provider and have any questions regarding this report, please contact the number below. For patients who have questions please contact the health coronary care unit nurse that requested your imaging first. Electronically signed by: Beverley Valencia MD, [facility] ([phone]), at 06/14/2024 4:32 AM Assessment: Abram Burgos [...] Holland MD Neurology, PGY-3 Consult Neurology Service #[id number] 06/14/2024 ATTENDING NOTE: I reviewed the pertinent [...] additional RF for poor control. Agree with elginelevel and cEEG. Kellen Braxton MD Associate Prof Neurol Neuromuscular Medicine & Clinical Neurophysiology documented in this encounter Plan of Treatment Upcoming Encounters Date Type Department Care Team (Late st Contact Info) Description 07/20/2024 1:30 PM EST Office Visit Neurosurgery at [facility] [place] [address] Eron Barriga MD [facility] [place] [address] Scheduled Orders Name Type Priority Associated Diagnoses [...] 2024 4:20 PM EST Unlisted Mri Procedure ([id number]) 2024 2:56 PM EST Please evaluate lesion [...] 06/14/2024 9:46 AM EST URINALYSIS BEAKER MICROSCOPIC ([facility]) SHEEBA 06/14/2024 8:06 AM EST _URINALYSIS WITH [...] Hepatic Function Panel (06/21/2024 12:50 AM EST) Pathologist [facility] Albumin 4.0 3.2 - 5.2 g/dL 06/21/2024 1:30 AM EST [facility] Aspartate Aminotransferase 47(H) <=39 unit/L 06/21/2024 1:30 AM [facility] Alanine Aminotransferase 64(H) 0 - 55 unit/L 06/21/2024 1:30 AM [facility] Alkaline Phosphatase 141(H) 40 - 130 unit/L 06/21/2024 1:30 AM [facility] Bilirubin, Total <0.2 <=1.3 mg/dL 06/21/2024 1:30 AM [facility] Bilirubin, Direct <0.2 0.0 - 0.3 mg/dL 06/21/2024 1:30 AM [facility] Protein, Total 7.1 6.1 - 8.0 g/dL 06/21/2024 1:30 AM [facility] Blood VENOUS BLOOD SPECIMEN / Unknown Venipuncture / Unknown 06/21/2024 12:50 AM EST 06/21/2024 12:56 AM EST Martinez Reynolds MD CHEMISTRY ORDERABLES [facility] [place] [address] * (ABNORMAL) CBC (with Diff) (06/21/2024 12:50 AM EST) Pathologist [facility] White Blood Cell 7.52 4.00 - 9.50 x10(3)/mc L 06/21/2024 1:09 AM EST [facility] Red Blood Cell 5.33 4.58 - 5.54 x10(6)/mc L 06/21/2024 1:09 AM [facility] Hemoglobin 12.9(L) 13.7 - 16.5 g/dL 06/21/2024 1:09 AM [facility] Hematocrit 39.9(L) 40.5 - 48.5 % 06/21/2024 1:09 AM [facility] Mean Cell Volume 74.9(L) 82.9 - 93.1 fL 06/21/2024 1:09 AM [facility] Mean Cell Hemoglobin 24.2(L) 27.5 - 32.1 pg 06/21/2024 1:09 AM [facility] Mean Cell Hemoglobin Concentration 32.3 32.0 - 35.7 g/dL 06/21/2024 1:09 AM [facility] Platelet 268 145 - 357 x10(3)/mc L 06/21/2024 1:09 AM [facility] Mean Platelet Volume 9.1 7.6 - 12.9 fL 06/21/2024 1:09 AM [facility] RDW Standard Deviation 39.8 36.0 - 45.0 fL 06/21/2024 1:09 AM [facility] RDW coefficient of variation 15.0(H) 11.4 - 13.8 % 06/21/2024 1:09 AM [facility] NRBC% auto 0.0 % 06/21/2024 1:09 AM [facility] NRBC Absolute <0.01 <0.01 x10(3)/mc L 06/21/2024 1:09 AM [facility] Neutrophil % 63.6 % 06/21/2024 1:09 AM [facility] Neutrophil Absolute (ANC) - Automated 4.78 1.70 - 6.10 x10(3)/mc L 06/21/2024 1:09 AM [facility] Lymph % 23.7 % 06/21/2024 1:09 AM [facility] Lymph Absolute 1.78 0.90 - 3.20 x10(3)/mc L 06/21/2024 1:09 AM [facility] Monocyte % 9.8 % 06/21/2024 1:09 AM [facility] Monocyte Absolute 0.74 0.30 - 0.90 x10(3)/mc L 06/21/2024 1:09 AM [facility] Eos % 2.0 % 06/21/2024 1:09 AM [facility] Eos Absolute 0.15 0.00 - 0.40 x10(3)/mc L 06/21/2024 1:09 AM [facility] Basophil % 0.4 % 06/21/2024 1:09 AM [facility] Baso Absolute <0.04 0.00 - 0.10 x10(3)/mc L 06/21/2024 1:09 AM [facility] Immature Gran % 0.5 % 1:09 AM [facility] Immature Gran Absolute 0.04 0.00 - 0.04 x10(3)/mc L 06/21/2024 1:09 AM [facility] Blood VENOUS BLOOD SPECIMEN / Unknown Venipuncture / Unknown 06/21/2024 12:50 AM EST 06/21/2024 12:56 AM EST Martinez Ryenolds MD HEMATOLOGY ORDERABLE S [facility] [place] [address] * Phosphorus (06/21/2024 12:50 AM EST) Phosphorus 3.2 2.5 - 4.5 mg/dL 06/21/2024 1:30 AM [facility] Blood VENOUS BLOOD SPECIMEN / Unknown Venipuncture / Unknown 06/21/2024 12:50 AM EST 06/21/2024 12:56 AM EST Martinez Reynolds MD CHEMISTRY ORDERABLES [facility] [place] [address] * Magnesium (06/21/2024 12:50 AM EST) Magnesium 0.81 0.69 - 1.07 mMol/L 06/21/2024 1:30 AM [facility] Blood VENOUS BLOOD SPECIMEN / Unknown Venipuncture / Unknown 06/21/2024 12:50 AM EST 06/21/2024 12:56 AM EST Martinez Reynolds MD CHEMISTRY ORDERABLES Performing Organization Address City/[facility]/ZIP Co de Phone Number [facility] [place] [address] * (ABNORMAL) Basic Metabolic Panel (06/21/2024 12:50 AM EST) Pathologist [facility] Glucose 126 65 - 199 mg/dL 06/21/2024 1:44 AM [facility] Comment:Glucose Concentratio n >=200 mg/dL plus symptoms is consistent with Diabetes Mellitus. Blood Urea Nitrogen 12 10 - 20 mg/dL 06/21/2024 1:44 AM [facility] Creatinine 0.82 0.80 - 1.50 mg/dL 06/21/2024 1:44 AM [facility] Sodium 141 135 - 145 mMol/L 06/21/2024 1:44 AM [facility] Potassium 4.3 3.5 - 5.0 mMol/L 06/21/2024 1:44 AM [facility] Chloride 111(H) 98 - 107 mMol/L 06/21/2024 1:44 AM [facility] Carbon Dioxide 18(L) 22 - 31 mMol/L 06/21/2024 1:44 AM [facility] Anion Gap 12 5 - 15 mMol/L 06/21/2024 1:44 AM [facility] Calcium 9.0 8.5 - 10.5 mg/dL 06/21/2024 1:44 AM EST [facility] Est Glomerular Filtration Rate - Male 118 mL/min/1. 73 m?? 06/21/2024 1:44 AM EST [facility] Comment: This patient's estimated GFR was [...] AM EST Martinez Reynolds MD CHEMISTRY ORDERABLES [facility] [place] [address] * (ABNORMAL) Hepatic Function Panel (06/20/2024 12:53 AM EST) Albumin 4.4 3.2 - 5.2 g/dL 06/20/2024 1:42 AM EST [facility] Aspartate Aminotransferase 65(H) <=39 unit/L 06/20/2024 1:42 AM EST [facility] Alanine Aminotransferase 80(H) 0 - 55 unit/L 06/20/2024 1:42 AM [facility] Alkaline Phosphatase 128 40 - 130 unit/L 06/20/2024 1:42 AM [facility] Bilirubin, Total <0.2 <=1.3 mg/dL 06/20/2024 1:42 AM [facility] Bilirubin, Direct <0.2 0.0 - 0.3 mg/dL 06/20/2024 1:42 AM [facility] Protein, Total 7.4 6.1 - 8.0 g/dL 06/20/2024 1:42 AM [facility] Blood VENOUS BLOOD SPECIMEN / Unknown Venipuncture / Unknown 06/20/2024 12:53 AM EST 06/20/2024 1:11 AM EST Martinez Reynolds MD CHEMISTRY ORDERABLES [facility] [place] [address] * (ABNORMAL) CBC (with Diff) (06/20/2024 12:53 AM EST) White Blood Cell 5.59 4.00 - 9.50 x10(3)/mc L 06/20/2024 1:23 AM [facility] Red Blood Cell 5.50 4.58 - 5.54 x10(6)/mc L 06/20/2024 1:23 AM [facility] Hemoglobin 13.5(L) 13.7 - 16.5 g/dL 06/20/2024 1:23 AM [facility] Hematocrit 40.9 40.5 - 48.5 % 06/20/2024 1:23 AM [facility] Mean Cell Volume 74.4(L) 82.9 - 93.1 fL 06/20/2024 1:23 AM [facility] Mean Cell Hemoglobin 24.5(L) 27.5 - 32.1 pg 06/20/2024 1:23 AM [facility] Mean Cell Hemoglobin Concentration 33.0 32.0 - 35.7 g/dL 06/20/2024 1:23 AM [facility] Platelet 303 145 - 357 x10(3)/mc L 06/20/2024 1:23 AM [facility] Mean Platelet Volume 8.9 7.6 - 12.9 fL 06/20/2024 1:23 AM [facility] RDW Standard Deviation 39.6 36.0 - 45.0 fL 06/20/2024 1:23 AM [facility] RDW coefficient of variation 14.7(H) 11.4 - 13.8 % 06/20/2024 1:23 AM [facility] NRBC% auto 0.0 % 06/20/2024 1:23 AM [facility] NRBC Absolute <0.01 <0.01 x10(3)/mc L 06/20/2024 1:23 AM [facility] Neutrophil % 54.2 % 06/20/2024 1:23 AM [facility] Neutrophil Absolute (ANC) - Automated 3.03 1.70 - 6.10 x10(3)/mc L 06/20/2024 1:23 AM [facility] Lymph % 31.1 % 06/20/2024 1:23 AM [facility] Lymph Absolute 1.74 0.90 - 3.20 x10(3)/mc L 06/20/2024 1:23 AM [facility] Monocyte % 11.8 % 06/20/2024 1:23 AM [facility] Monocyte Absolute 0.66 0.30 - 0.90 x10(3)/mc L 06/20/2024 1:23 AM [facility] Eos % 2.0 % 06/20/2024 1:23 AM [facility] Eos Absolute 0.11 0.00 - 0.40 x10(3)/mc L 06/20/2024 1:23 AM [facility] Basophil % 0.4 % 06/20/2024 1:23 AM [facility] Baso Absolute <0.04 0.00 - 0.10 x10(3)/mc L 06/20/2024 1:23 AM [facility] Immature Gran % 0.5 % 1:23 AM [facility] Immature Gran Absolute <0.04 0.00 - 0.04 x10(3)/mc L 06/20/2024 1:23 AM EST [facility] Blood VENOUS BLOOD SPECIMEN / Unknown Venipuncture / Unknown 06/20/2024 12:53 AM EST 06/20/2024 1:12 AM EST Martinez Reynolds MD HEMATOLOGY ORDERABLE S Performing Organization Address City/[facility]/ZIP Co de Phone Number [facility] [place] [address] * Phosphorus (06/20/2024 12:53 AM EST) Phosphorus 3.7 2.5 - 4.5 mg/dL 06/20/2024 1:42 AM EST [facility] Blood VENOUS BLOOD SPECIMEN / Unknown Venipuncture / Unknown 06/20/2024 12:53 AM EST 06/20/2024 1:11 AM EST Martinez Reynolds MD CHEMISTRY ORDERABLES Performing Organization Address [facility] Co de Phone Number [facility] [place] [address] * Magnesium (06/20/2024 12:53 AM EST) Magnesium 0.76 0.69 - 1.07 mMol/L 06/20/2024 1:42 AM EST [facility] Blood VENOUS BLOOD SPECIMEN / Unknown Venipuncture / Unknown 06/20/2024 12:53 AM EST 06/20/2024 1:11 AM EST Martinez Reynolds MD CHEMISTRY ORDERABLES Performing Organization Address City/[facility] Co de Phone Number [facility] [place] [address] * (ABNORMAL) Basic Metabolic Panel (06/20/2024 12:53 AM EST) Glucose 95 65 - 199 mg/dL 06/20/2024 1:42 AM EST [facility] Comment:Glucose Concentratio n >=200 mg/dL plus symptoms is consistent with Diabetes Mellitus. Blood Urea Nitrogen 10 10 - 20 mg/dL 06/20/2024 1:42 AM [facility] Creatinine 0.75(L) 0.80 - 1.50 mg/dL 06/20/2024 1:42 AM [facility] Sodium 137 135 - 145 mMol/L 06/20/2024 1:42 AM [facility] Potassium 3.7 3.5 - 5.0 mMol/L 06/20/2024 1:42 AM [facility] Chloride 102 98 - 107 mMol/L 06/20/2024 1:42 AM [facility] Carbon Dioxide 20(L) 22 - 31 mMol/L 06/20/2024 1:42 AM [facility] Anion Gap 15 5 - 15 mMol/L 06/20/2024 1:42 AM [facility] Calcium 9.1 8.5 - 10.5 mg/dL 06/20/2024 1:42 AM [facility] Est Glomerular Filtration Rate - Male 121 mL/min/1. 73 m?? 06/20/2024 1:42 AM [facility] Comment: This patient's estimated GFR was [...] AM EST Martinez Reynolds MD CHEMISTRY ORDERABLES [facility] [place] [address] * (ABNORMAL) Hepatic Function Panel (06/19/2024 4:10 AM EST) [facility] Albumin 4.2 3.2 - 5.2 g/dL 06/19/2024 4:51 AM [facility] Aspartate Aminotransferase 57(H) <=39 unit/L 06/19/2024 4:51 AM [facility] Alanine Aminotransferase 76(H) 0 - 55 unit/L 06/19/2024 4:51 AM [facility] Alkaline Phosphatase 133(H) 40 - 130 unit/L 06/19/2024 4:51 AM [facility] Bilirubin, Total 0.2 <=1.3 mg/dL 06/19/2024 4:51 AM [facility] Bilirubin, Direct <0.2 0.0 - 0.3 mg/dL 06/19/2024 4:51 AM [facility] Protein, Total 7.5 6.1 - 8.0 g/dL 06/19/2024 4:51 AM [facility] Blood VENOUS BLOOD SPECIMEN / Unknown Venipuncture / Unknown 06/19/2024 4:10 AM EST 06/19/2024 4:21 AM EST Martinez Reynolds MD CHEMISTRY ORDERABLES [facility] [place] [address] * (ABNORMAL) CBC (with Diff) (06/19/2024 4:10 AM EST) [facility] White Blood Cell 6.86 4.00 - 9.50 x10(3)/mc L 06/19/2024 4:28 AM [facility] Red Blood Cell 5.60(H) 4.58 - 5.54 x10(6)/mc L 06/19/2024 4:28 AM [facility] Hemoglobin 13.8 13.7 - 16.5 g/dL 06/19/2024 4:28 AM [facility] Hematocrit 41.6 40.5 - 48.5 % 06/19/2024 4:28 AM [facility] Mean Cell Volume 74.3(L) 82.9 - 93.1 fL 06/19/2024 4:28 AM [facility] Mean Cell Hemoglobin 24.6(L) 27.5 - 32.1 pg 06/19/2024 4:28 AM [facility] Mean Cell Hemoglobin Concentration 33.2 32.0 - 35.7 g/dL 06/19/2024 4:28 AM [facility] Platelet 297 145 - 357 x10(3)/mc L 06/19/2024 4:28 AM [facility] Mean Platelet Volume 9.1 7.6 - 12.9 fL 06/19/2024 4:28 AM [facility] RDW Standard Deviation 39.1 36.0 - 45.0 fL 06/19/2024 4:28 AM [facility] RDW coefficient of variation 14.8(H) 11.4 - 13.8 % 06/19/2024 4:28 AM [facility] NRBC% auto 0.0 % 06/19/2024 4:28 AM [facility] NRBC Absolute <0.01 <0.01 x10(3)/mc L 06/19/2024 4:28 AM [facility] Neutrophil % 64.0 % 06/19/2024 4:28 AM [facility] Neutrophil Absolute (ANC) - Automated 4.39 1.70 - 6.10 x10(3)/mc L 06/19/2024 4:28 AM [facility] Lymph % 28.7 % 06/19/2024 4:28 AM [facility] Lymph Absolute 1.97 0.90 - 3.20 x10(3)/mc L 06/19/2024 4:28 AM [facility] Monocyte % 4.1 % 06/19/2024 4:28 AM [facility] Monocyte Absolute 0.28(L) 0.30 - 0.90 x10(3)/mc L 06/19/2024 4:28 AM [facility] Eos % 2.2 % 06/19/2024 4:28 AM [facility] Eos Absolute 0.15 0.00 - 0.40 x10(3)/mc L 06/19/2024 4:28 AM [facility] Basophil % 0.4 % 06/19/2024 4:28 AM [facility] Baso Absolute <0.04 0.00 - 0.10 x10(3)/mc L 06/19/2024 4:28 AM [facility] Immature Gran % 0.6 % 4:28 AM [facility] Immature Gran Absolute 0.04 0.00 - 0.04 x10(3)/mc L 06/19/2024 4:28 AM [facility] Blood VENOUS BLOOD SPECIMEN / Unknown Venipuncture / Unknown 06/19/2024 4:10 AM EST 06/19/2024 4:21 AM EST Martinez Reynolds MD HEMATOLOGY ORDERABLE S [facility] [place] [address] * (ABNORMAL) Phosphorus (06/19/2024 4:10 AM EST) Phosphorus 5.0(H) 2.5 - 4.5 mg/dL 06/19/2024 4:51 AM [facility] Blood VENOUS BLOOD SPECIMEN / Unknown Venipuncture / Unknown 06/19/2024 4:10 AM EST 06/19/2024 4:21 AM EST Martinez Reynolds MD CHEMISTRY ORDERABLES [facility] [place] [address] * Magnesium (06/19/2024 4:10 AM EST) Pathologist [facility] Magnesium 0.74 0.69 - 1.07 mMol/L 06/19/2024 4:51 AM [facility] Blood VENOUS BLOOD SPECIMEN / Unknown Venipuncture / Unknown 06/19/2024 4:10 AM EST 06/19/2024 4:21 AM EST Martinez Reynolds MD CHEMISTRY ORDERABLES [facility] [place] [address] * (ABNORMAL) Basic Metabolic Panel (06/19/2024 4:10 AM EST) Pathologist [facility] Glucose 112 65 - 199 mg/dL 06/19/2024 4:51 AM [facility] Comment:Glucose Concentratio n >=200 mg/dL plus symptoms is consistent with Diabetes Mellitus. Blood Urea Nitrogen 19 10 - 20 mg/dL 06/19/2024 4:51 AM [facility] Creatinine 0.86 0.80 - 1.50 mg/dL 06/19/2024 4:51 AM [facility] Sodium 135 135 - 145 mMol/L 06/19/2024 4:51 AM [facility] Potassium 3.8 3.5 - 5.0 mMol/L 06/19/2024 4:51 AM [facility] Chloride 97(L) 98 - 107 mMol/L 06/19/2024 4:51 AM [facility] Carbon Dioxide 25 22 - 31 mMol/L 06/19/2024 4:51 AM [facility] Anion Gap 13 5 - 15 mMol/L 06/19/2024 4:51 AM [facility] Calcium 9.4 8.5 - 10.5 mg/dL 06/19/2024 4:51 AM [facility] Est Glomerular Filtration Rate - Male 117 mL/min/1. 73 m?? 06/19/2024 4:51 AM EST [facility] Comment: This patient's estimated GFR was [...] Reynolds MD CHEMISTRY ORDERABLES Performing Organization Address City/State/[facility] Co de Phone Number [facility] [place] [address] * (ABNORMAL) Urinalysis with reflex Culture (06/19/2024 3:22 AM EST) Glucose, Urine Dipstick Negative Negative 06/19/2024 3:37 AM EST [facility] Protein, Urine Dipstick Negative Negative 06/19/2024 3:37 AM EST [facility] Bilirubin, Urine Dipstick Negative Negative 06/19/2024 3:37 AM EST [facility] Comment:Clinical correlation required for positive Urine Bilirubin results as false positive may occur with some drugs and drug related products. If a false positive is suspected a serum total bilirubin should be considered if clinically indicated. Urobilinogen, Urine Dipstick Normal Normal, 0.2 mg/dL, 1.0 mg/dL 06/19/2024 3:37 AM EST [facility] pH, Urine (dipstick) 6.5 5.0 - 8.0 06/19/2024 3:37 AM EST [facility] Blood, Urine Dipstick Negative Negative 06/19/2024 3:37 AM [facility] Ketone, Urine Dipstick Negative Negative 06/19/2024 3:37 AM [facility] Nitrite, Urine Dipstick Negative Negative 06/19/2024 3:37 AM [facility] Leukocytes, Urine Dipstick Negative Negative 06/19/2024 3:37 AM [facility] Specific [place] Urine Automated 1.021 1.005 - 1.030 06/19/2024 3:37 AM [facility] Appearance, Urine Dipstick Cloudy(A) Clear 06/19/2024 3:37 AM [facility] Color, Urine Dipstick Yellow Yellow, Dark Yellow 06/19/2024 3:37 AM [facility] CULTURE ADDED? 06/19/2024 3:37 AM [facility] Urine URINE SPECIMEN OBTAINED VIA STRAIGHT CATHETER / Unknown Non Blood Collection / Unknown 06/19/2024 3:22 AM EST 06/19/2024 3:31 AM EST Pamela Johnson DO URINE ORDERABLES [facility] [place] [address] * XR Chest One View (06/18/2024 7:55 PM EST) Delivery Agent WORKSTATION ID [id number] RAD Anatomical Region Laterality Modality Chest N/A [...] who have questions please contact the health coronary care unit nurse that requested your imaging first. ? Electronically signed by: Tobias Sotomayor MD, [facility] ([phone]), at 06/18/2024 8:09 PM Narrative 06/18/2024 8:09 [...] patients who have questions please contactthe health coronary care unit nurse that requested your imaging first. Electronically signed by: Tobias Sotomayor MD, [facility]([phone]), at 06/18/2024 8:09 PM Pamela Johnson DO IMG DX ORDERABLES * Blood culture (06/18/2024 7:00 PM EST) Blood Culture No growth at 120 hours 06/23/2024 8:00 PM [facility] Blood VENOUS BLOOD SPECIMEN / Unknown Venipuncture / Unknown 06/18/2024 7:00 PM EST 06/18/2024 7:05 PM EST Pamela Johnson DO MICROBIOLOGY - BL OOD ORDERABLES Performing Organization Address City/[facility] Co de Phone Number [facility] [place] [address] * (ABNORMAL) Blood culture (06/18/2024 7:00 PM EST) [facility] Blood Culture Coagulase Negative Staphylococcus species(Critical) VITEK 2 METHOD 06/23/2024 6:52 AM [facility] Comment: detected by PCR Interpretation of the importance of skin akbar such as Coag Negative Staph, Viridans Strep, Corynebacteria and other Gram Positive orgs from a single Blood Culture set requires clinical correlation. Gram Stain Anaerobic Bottle: Gram positive cocci in clusters(Critical ) 06/23/2024 6:52 AM [facility] Comment:This is an appended report. These results have been appended to a previously preliminary verified report. Blood VENOUS BLOOD SPECIMEN / Unknown Venipuncture / Unknown 06/18/2024 7:00 PM EST 06/18/2024 7:05 PM EST Pamela Johnson DO MICROBIOLOGY - BL OOD ORDERABLES Performing Organization Address [facility]/ZIP Co de Phone Number [facility] [place] [address] * POC, GLUCOSE (06/18/2024 6:55 PM EST) Glucometer, POC 100 65 - 199 mg/dL 06/18/2024 6:56 PM EST [facility] Comment:Supplemental ranges: <140 mg/dL before meals <180 mg/dL all other times of the day. Blood CAPILLARY BLOOD / Unknown 06/18/2024 6:55 PM EST 06/18/2024 6:56 PM EST Pamela Johnson DO POINT OF CARE TABATHA T ORDERABLES Performing Organization Address [facility]/ZIP Co de Phone Number [facility] [place] [address] * EKG 12 Lead (06/18/2024 1:41 PM EST) Ventricular rate 47 BPM MUSE SYSTEM Atrial Rate 47 BPM MUSE SYSTEM P-R Interval 186 ms MUSE SYSTEM QRS Duration 114 ms MUSE SYSTEM Q-T Interval 558 ms MUSE SYSTEM QTC Calculated (Bezet) 493 ms MUSE SYSTEM Calculated P [place] 11 degrees MUSE SYSTEM Calculated R [place] 45 degrees MUSE SYSTEM Calculated T [place] 45 degrees MUSE SYSTEM INTERPRETATION Sinus bradycardia with sinus arrhythmia Abnormal ECG When compared with ECG of 18-JUN-2024 00:53, (unconfirmed) Vent. rate has decreased BY ??32 BPM Nonspecific T wave abnormality no longer evident in Anterior leads Confirmed by MD SELVIN, OZZY ([id number]) on 06/20/2024 2:52:15 PM MUSE SYSTEM 06/18/2024 1:41 PM EST 06/20/2024 2:52 PM EST Martinez Reynolds MD ECG ORDERABLES Performing Organization Address [facility] Co de Phone Number MUSE SYSTEM * Sodium (06/18/2024 12:22 PM EST) Sodium 135 135 - 145 mMol/L 06/18/2024 1:01 PM EST [facility] Blood VENOUS BLOOD SPECIMEN / Unknown Venipuncture / Unknown 06/18/2024 12:22 PM EST 06/18/2024 12:35 PM EST Pamela Johnson DO CHEMISTRY ORDERAB LES Performing Organization Address [facility]/ZIP Co de Phone Number [facility] [place] [address] * CT Head wo Contrast (Generic) (06/18/2024 11:18 AM EST) WORKSTATION ID [id number] RAD Anatomical Region Laterality Modality Head Computed [...] who have questions please contact the health coronary care unit nurse that requested your imaging first. ? Electronically signed by: Jimbo Casillas MD, [facility] ([phone]), at 06/18/2024 11:37 AM Narrative 06/18/2024 11:37 [...] patients who have questions please contactthe health coronary care unit nurse that requested your imaging first. Pamela Johnson DO IMG CT ORDERABLES * (ABNORMAL) Hepatic Function Panel (06/18/2024 1:26 AM EST) Albumin 4.2 3.2 - 5.2 g/dL 06/18/2024 2:02 AM EST [facility] Aspartate Aminotransferase 52(H) <=39 unit/L 06/18/2024 2:02 AM EST [facility] Alanine Aminotransferase 61(H) 0 - 55 unit/L 06/18/2024 2:02 AM EST [facility] Alkaline Phosphatase 118 40 - 130 unit/L 06/18/2024 2:02 AM EST [facility] Bilirubin, Total 0.3 <=1.3 mg/dL 06/18/2024 2:02 AM EST [facility] Bilirubin, Direct <0.2 0.0 - 0.3 mg/dL 06/18/2024 2:02 AM EST [facility] Protein, Total 6.9 6.1 - 8.0 g/dL 06/18/2024 2:02 AM EST [facility] Blood VENOUS BLOOD SPECIMEN / Unknown Venipuncture / Unknown 06/18/2024 1:26 AM EST 06/18/2024 1:34 AM EST Martinez Reynolds MD CHEMISTRY ORDERABLES [facility] [place] [address] * (ABNORMAL) CBC (with Diff) (06/18/2024 1:26 AM EST) White Blood Cell 9.78(H) 4.00 - 9.50 x10(3)/mc L 06/18/2024 1:38 AM [facility] Red Blood Cell 5.02 4.58 - 5.54 x10(6)/mc L 06/18/2024 1:38 AM [facility] Hemoglobin 12.4(L) 13.7 - 16.5 g/dL 06/18/2024 1:38 AM [facility] Hematocrit 37.2(L) 40.5 - 48.5 % 06/18/2024 1:38 AM [facility] Mean Cell Volume 74.1(L) 82.9 - 93.1 fL 06/18/2024 1:38 AM [facility] Mean Cell Hemoglobin 24.7(L) 27.5 - 32.1 pg 06/18/2024 1:38 AM [facility] Mean Cell Hemoglobin Concentration 33.3 32.0 - 35.7 g/dL 06/18/2024 1:38 AM [facility] Platelet 262 145 - 357 x10(3)/mc L 06/18/2024 1:38 AM [facility] Mean Platelet Volume 9.2 7.6 - 12.9 fL 06/18/2024 1:38 AM [facility] RDW Standard Deviation 40.8 36.0 - 45.0 fL 06/18/2024 1:38 AM [facility] RDW coefficient of variation 15.3(H) 11.4 - 13.8 % 06/18/2024 1:38 AM [facility] NRBC% auto 0.0 % 06/18/2024 1:38 AM [facility] NRBC Absolute <0.01 <0.01 x10(3)/mc L 06/18/2024 1:38 AM [facility] Neutrophil % 72.8 % 06/18/2024 1:38 AM [facility] Neutrophil Absolute (ANC) - Automated 7.12(H) 1.70 - 6.10 x10(3)/mc L 06/18/2024 1:38 AM [facility] Lymph % 16.9 % 06/18/2024 1:38 AM [facility] Lymph Absolute 1.65 0.90 - 3.20 x10(3)/mc L 06/18/2024 1:38 AM [facility] Monocyte % 8.7 % 06/18/2024 1:38 AM [facility] Monocyte Absolute 0.85 0.30 - 0.90 x10(3)/mc L 06/18/2024 1:38 AM [facility] Eos % 1.0 % 06/18/2024 1:38 AM [facility] Eos Absolute 0.10 0.00 - 0.40 x10(3)/mc L 06/18/2024 1:38 AM [facility] Basophil % 0.2 % 06/18/2024 1:38 AM [facility] Baso Absolute <0.04 0.00 - 0.10 x10(3)/mc L 06/18/2024 1:38 AM EST [facility] Immature Gran % 0.4 % 1:38 AM [facility] Immature Gran Absolute 0.04 0.00 - 0.04 x10(3)/mc L 06/18/2024 1:38 AM [facility] Blood VENOUS BLOOD SPECIMEN / Unknown Venipuncture / Unknown 06/18/2024 1:26 AM EST 06/18/2024 1:34 AM EST Martinez Reynolds MD HEMATOLOGY ORDERABLE S [facility] [place] [address] * (ABNORMAL) Phosphorus (06/18/2024 1:26 AM EST) Pathologist [facility] Phosphorus 5.7(H) 2.5 - 4.5 mg/dL 06/18/2024 2:02 AM EST [facility] Blood VENOUS BLOOD SPECIMEN / Unknown Venipuncture / Unknown 06/18/2024 1:26 AM EST 06/18/2024 1:34 AM EST Martinez Reynolds MD CHEMISTRY ORDERABLES [facility] [place] [address] * Magnesium (06/18/2024 1:26 AM EST) [facility] Magnesium 0.84 0.69 - 1.07 mMol/L 06/18/2024 2:02 AM [facility] Blood VENOUS BLOOD SPECIMEN / Unknown Venipuncture / Unknown 06/18/2024 1:26 AM EST 06/18/2024 1:34 AM EST Martinez Reynolds MD CHEMISTRY ORDERABLES [facility] [place] [address] * Basic Metabolic Panel (06/18/2024 1:26 AM EST) [facility] Glucose 106 65 - 199 mg/dL 06/18/2024 2:02 AM [facility] Comment:Glucose Concentratio n >=200 mg/dL plus symptoms is consistent with Diabetes Mellitus. Blood Urea Nitrogen 15 10 - 20 mg/dL 06/18/2024 2:02 AM [facility] Creatinine 1.05 0.80 - 1.50 mg/dL 06/18/2024 2:02 AM EST [facility] Sodium 138 135 - 145 mMol/L 06/18/2024 2:02 AM [facility] Potassium 4.4 3.5 - 5.0 mMol/L 06/18/2024 2:02 AM [facility] Chloride 102 98 - 107 mMol/L 06/18/2024 2:02 AM [facility] Carbon Dioxide 25 22 - 31 mMol/L 06/18/2024 2:02 AM [facility] Anion Gap 11 5 - 15 mMol/L 06/18/2024 2:02 AM [facility] Calcium 9.3 8.5 - 10.5 mg/dL 06/18/2024 2:02 AM [facility] Est Glomerular Filtration Rate - Male 96 mL/min/1. 73 m?? 06/18/2024 2:02 AM [facility] Comment: This patient's estimated GFR was [...] AM EST Martinez Reynolds MD CHEMISTRY ORDERABLES [facility] [place] [address] * EKG 12 Lead (06/18/2024 12:53 AM EST) Ventricular rate 79 BPM MUSE SYSTEM Atrial Rate 79 BPM MUSE SYSTEM P-R Interval 160 ms MUSE SYSTEM QRS Duration 98 ms MUSE SYSTEM Q-T Interval 420 ms MUSE SYSTEM QTC Calculated (Bezet) 481 ms MUSE SYSTEM Calculated P [place] 17 degrees MUSE SYSTEM Calculated R [place] 46 degrees MUSE SYSTEM Calculated T [place] 45 degrees MUSE SYSTEM INTERPRETATION Normal sinus rhythm Nonspecific T wave abnormality Prolonged QT Abnormal ECG When compared with ECG of 14-JUN-2024 01:04, Nonspecific T wave abnormality now evident in Anterior leads I personally reviewed the tracing and edited the fellows interpretation Confirmed by fellow MD Corbin, Maninder ([id number]) on 06/18/2024 4:57:53 PM Confirmed by Anthony Penn MD ([id number]) on 06/19/2024 3:21:54 PM MUSE SYSTEM 06/18/2024 12:5 3 AM EST 06/19/2024 3:21 PM EST Samantha Babb MD ECG ORDERABLES Performing Organization Address City/[facility]/ZIP Co de Phone Number MUSE SYSTEM * Sodium (06/17/2024 5:50 PM EST) Sodium 141 135 - 145 mMol/L 06/17/2024 6:38 PM EST [facility] Blood VENOUS BLOOD SPECIMEN / Unknown Venipuncture / Unknown 06/17/2024 5:50 PM EST 06/17/2024 6:07 PM EST Channing Ballesteros MD CHEMISTRY ORDERABLES Performing Organization Address City/[facility]/ZIP Co de Phone Number [facility] [place] [address] * (ABNORMAL) Hepatic Function Panel (06/17/2024 11:58 AM EST) Albumin 4.2 3.2 - 5.2 g/dL 06/17/2024 12:45 PM EST [facility] Aspartate Aminotransferase 37 <=39 unit/L 06/17/2024 12:45 PM EST [facility] Alanine Aminotransferase 58(H) 0 - 55 unit/L 06/17/2024 12:45 PM EST [facility] Alkaline Phosphatase 118 40 - 130 unit/L 06/17/2024 12:45 PM EST [facility] Bilirubin, Total 0.2 <=1.3 mg/dL 06/17/2024 12:45 PM EST [facility] Bilirubin, Direct <0.2 0.0 - 0.3 mg/dL 06/17/2024 12:45 PM EST [facility] Protein, Total 7.1 6.1 - 8.0 g/dL 06/17/2024 12:45 PM EST [facility] Blood VENOUS BLOOD SPECIMEN / Unknown Venipuncture / Unknown 06/17/2024 11:58 AM EST 06/17/2024 12:11 PM EST Pamela Johnson DO CHEMISTRY ORDERAB LES [facility] [place] [address] * Sodium (06/17/2024 11:58 AM EST) Sodium 141 135 - 145 mMol/L 06/17/2024 12:45 PM EST [facility] Blood VENOUS BLOOD SPECIMEN / Unknown Venipuncture / Unknown 06/17/2024 11:58 AM EST 06/17/2024 12:11 PM EST Channing Ballesteros MD CHEMISTRY ORDERABLES Performing Organization Address City/[facility]/ZIP Co de Phone Number [facility] [place] [address] * Sodium (06/17/2024 6:23 AM EST) Sodium 140 135 - 145 mMol/L 06/17/2024 6:53 AM EST [facility] Blood VENOUS BLOOD SPECIMEN / Unknown Venipuncture / Unknown 06/17/2024 6:23 AM EST 06/17/2024 6:29 AM EST Channing Ballesteros MD CHEMISTRY ORDERABLES [facility] [place] [address] * (ABNORMAL) CBC (with Diff) (06/17/2024 12:22 AM EST) White Blood Cell 6.81 4.00 - 9.50 x10(3)/mc L 06/17/2024 12:37 AM [facility] Red Blood Cell 5.20 4.58 - 5.54 x10(6)/mc L 06/17/2024 12:37 AM [facility] Hemoglobin 12.9(L) 13.7 - 16.5 g/dL 06/17/2024 12:37 AM [facility] Hematocrit 37.9(L) 40.5 - 48.5 % 06/17/2024 12:37 AM [facility] Mean Cell Volume 72.9(L) 82.9 - 93.1 fL 06/17/2024 12:37 AM [facility] Mean Cell Hemoglobin 24.8(L) 27.5 - 32.1 pg 06/17/2024 12:37 AM [facility] Mean Cell Hemoglobin Concentration 34.0 32.0 - 35.7 g/dL 06/17/2024 12:37 AM [facility] Platelet 301 145 - 357 x10(3)/mc L 06/17/2024 12:37 AM [facility] Mean Platelet Volume 9.0 7.6 - 12.9 fL 06/17/2024 12:37 AM [facility] RDW Standard Deviation 38.8 36.0 - 45.0 fL 06/17/2024 12:37 AM [facility] RDW coefficient of variation 14.9(H) 11.4 - 13.8 % 06/17/2024 12:37 AM [facility] NRBC% auto 0.0 % 06/17/2024 12:37 AM [facility] NRBC Absolute <0.01 <0.01 x10(3)/mc L 06/17/2024 12:37 AM [facility] Neutrophil % 58.2 % 06/17/2024 12:37 AM [facility] Neutrophil Absolute (ANC) - Automated 3.96 1.70 - 6.10 x10(3)/mc L 06/17/2024 12:37 AM [facility] Lymph % 30.1 % 06/17/2024 12:37 AM [facility] Lymph Absolute 2.05 0.90 - 3.20 x10(3)/mc L 06/17/2024 12:37 AM [facility] Monocyte % 9.8 % 06/17/2024 12:37 AM [facility] Monocyte Absolute 0.67 0.30 - 0.90 x10(3)/mc L 06/17/2024 12:37 AM [facility] Eos % 1.0 % 06/17/2024 12:37 AM [facility] Eos Absolute 0.07 0.00 - 0.40 x10(3)/mc L 06/17/2024 12:37 AM [facility] Basophil % 0.3 % 06/17/2024 12:37 AM [facility] Baso Absolute <0.04 0.00 - 0.10 x10(3)/mc L 06/17/2024 12:37 AM [facility] Immature Gran % 0.6 % 12:37 AM [facility] Immature Gran Absolute 0.04 0.00 - 0.04 x10(3)/mc L 06/17/2024 12:37 AM [facility] Blood VENOUS BLOOD SPECIMEN / Unknown Venipuncture / Unknown 06/17/2024 12:22 AM EST 06/17/2024 12:28 AM EST Martinez Reynolds MD HEMATOLOGY ORDERABLE S [facility] [place] [address] * Phosphorus (06/17/2024 12:22 AM EST) Phosphorus 4.3 2.5 - 4.5 mg/dL 06/17/2024 12:58 AM EST [facility] Blood VENOUS BLOOD SPECIMEN / Unknown Venipuncture / Unknown 06/17/2024 12:22 AM EST 06/17/2024 12:28 AM EST Martinez Reynolds MD CHEMISTRY ORDERABLES Performing Organization Address [facility] Co de Phone Number [facility] [place] [address] * Magnesium (06/17/2024 12:22 AM EST) Magnesium 0.88 0.69 - 1.07 mMol/L 06/17/2024 12:58 AM [facility] Blood VENOUS BLOOD SPECIMEN / Unknown Venipuncture / Unknown 06/17/2024 12:22 AM EST 06/17/2024 12:28 AM EST Martinez Reynolds MD CHEMISTRY ORDERABLES Performing Organization Address City/[facility] Co de Phone Number [facility] [place] [address] * Basic Metabolic Panel (06/17/2024 12:22 AM EST) Glucose 99 65 - 199 mg/dL 06/17/2024 1:12 AM [facility] Comment:Glucose Concentratio n >=200 mg/dL plus symptoms is consistent with Diabetes Mellitus. Blood Urea Nitrogen 14 10 - 20 mg/dL 06/17/2024 1:12 AM [facility] Creatinine 0.90 0.80 - 1.50 mg/dL 06/17/2024 1:12 AM [facility] Sodium 140 135 - 145 mMol/L 06/17/2024 1:12 AM [facility] Potassium 4.1 3.5 - 5.0 mMol/L 06/17/2024 1:12 AM [facility] Chloride 105 98 - 107 mMol/L 06/17/2024 1:12 AM [facility] Carbon Dioxide 24 22 - 31 mMol/L 06/17/2024 1:12 AM EST [facility] Anion Gap 11 5 - 15 mMol/L 06/17/2024 1:12 AM EST [facility] Calcium 9.4 8.5 - 10.5 mg/dL 06/17/2024 1:12 AM EST [facility] Est Glomerular Filtration Rate - Male 115 mL/min/1. 73 m?? 06/17/2024 1:12 AM EST [facility] Comment: This patient's estimated GFR was [...] Reynolds MD CHEMISTRY ORDERABLES Performing Organization Address City/[facility]/ZIP Co de Phone Number [facility] [place] [address] * Sodium (06/16/2024 6:37 PM EST) Sodium 142 135 - 145 mMol/L 06/16/2024 6:55 PM EST [facility] Blood VENOUS BLOOD SPECIMEN / Unknown Venipuncture / Unknown 06/16/2024 6:37 PM EST 06/16/2024 6:42 PM EST Channing Ballesteros MD CHEMISTRY ORDERABLES [facility] [place] [address] * Sodium (06/16/2024 2:05 PM EST) Sodium 135 135 - 145 mMol/L 06/16/2024 2:54 PM EST [facility] Blood VENOUS BLOOD SPECIMEN / Unknown Venipuncture / Unknown 06/16/2024 2:05 PM EST 06/16/2024 2:23 PM EST Channing Ballesteros MD CHEMISTRY ORDERABLES [facility] [place] [address] * Sodium (06/16/2024 12:03 PM EST) Sodium 139 135 - 145 mMol/L 06/16/2024 1:02 PM EST [facility] Blood VENOUS BLOOD SPECIMEN / Unknown Venipuncture / Unknown 06/16/2024 12:03 PM EST 06/16/2024 12:06 PM EST Marline Calderon APRN CHEMISTRY ORDERABL ES Performing Organization Address [facility]/ZIP Co de Phone Number [facility] [place] [address] * (ABNORMAL) Sodium (06/16/2024 6:00 AM EST) Sodium 131(L) 135 - 145 mMol/L 06/16/2024 6:26 AM EST [facility] Blood VENOUS BLOOD SPECIMEN / Unknown Venipuncture / Unknown 06/16/2024 6:00 AM EST 06/16/2024 6:03 AM EST Marline Calderon MESS ATTENDANT CREW CHEMISTRY ORDERABL ES Performing Organization Address City/[facility]/ZIP Co de Phone Number [facility] [place] [address] * (ABNORMAL) CBC (with Diff) (06/16/2024 12:09 AM EST) White Blood Cell 7.71 4.00 - 9.50 x10(3)/mc L 06/16/2024 12:26 AM [facility] Red Blood Cell 4.69 4.58 - 5.54 x10(6)/mc L 06/16/2024 12:26 AM [facility] Hemoglobin 11.7(L) 13.7 - 16.5 g/dL 06/16/2024 12:26 AM [facility] Hematocrit 33.8(L) 40.5 - 48.5 % 06/16/2024 12:26 AM [facility] Mean Cell Volume 72.1(L) 82.9 - 93.1 fL 06/16/2024 12:26 AM [facility] Mean Cell Hemoglobin 24.9(L) 27.5 - 32.1 pg 06/16/2024 12:26 AM [facility] Mean Cell Hemoglobin Concentration 34.6 32.0 - 35.7 g/dL 06/16/2024 12:26 AM [facility] Platelet 241 145 - 357 x10(3)/mc L 06/16/2024 12:26 AM [facility] Mean Platelet Volume 9.3 7.6 - 12.9 fL 06/16/2024 12:26 AM [facility] RDW Standard Deviation 37.3 36.0 - 45.0 fL 06/16/2024 12:26 AM [facility] RDW coefficient of variation 14.5(H) 11.4 - 13.8 % 06/16/2024 12:26 AM [facility] NRBC% auto 0.0 % 06/16/2024 12:26 AM [facility] NRBC Absolute <0.01 <0.01 x10(3)/mc L 06/16/2024 12:26 AM [facility] Neutrophil % 64.4 % 06/16/2024 12:26 AM [facility] Neutrophil Absolute (ANC) - Automated 4.96 1.70 - 6.10 x10(3)/mc L 06/16/2024 12:26 AM EST [facility] Lymph % 23.7 % 06/16/2024 12:26 AM [facility] Lymph Absolute 1.83 0.90 - 3.20 x10(3)/mc L 06/16/2024 12:26 AM [facility] Monocyte % 9.7 % 06/16/2024 12:26 AM [facility] Monocyte Absolute 0.75 0.30 - 0.90 x10(3)/mc L 06/16/2024 12:26 AM EST [facility] Eos % 1.0 % 06/16/2024 12:26 AM [facility] Eos Absolute 0.08 0.00 - 0.40 x10(3)/mc L 06/16/2024 12:26 AM [facility] Basophil % 0.4 % 06/16/2024 12:26 AM [facility] Baso Absolute <0.04 0.00 - 0.10 x10(3)/mc L 06/16/2024 12:26 AM [facility] Immature Gran % 0.8 % 12:26 AM [facility] Immature Gran Absolute 0.06(H) 0.00 - 0.04 x10(3)/mc L 06/16/2024 12:26 AM [facility] Blood VENOUS BLOOD SPECIMEN / Unknown Venipuncture / Unknown 06/16/2024 12:09 AM EST 06/16/2024 12:21 AM EST Martinez Reynolds MD HEMATOLOGY ORDERABLE S [facility] [place] [address] * Phosphorus (06/16/2024 12:09 AM EST) Phosphorus 3.2 2.5 - 4.5 mg/dL 06/16/2024 12:50 AM [facility] Blood VENOUS BLOOD SPECIMEN / Unknown Venipuncture / Unknown 06/16/2024 12:09 AM EST 06/16/2024 12:21 AM EST Martinez Reynolds MD CHEMISTRY ORDERABLES [facility] [place] [address] * Magnesium (06/16/2024 12:09 AM EST) Magnesium 0.85 0.69 - 1.07 mMol/L 06/16/2024 12:50 AM [facility] Blood VENOUS BLOOD SPECIMEN / Unknown Venipuncture / Unknown 06/16/2024 12:09 AM EST 06/16/2024 12:21 AM EST Martinez Reynolds MD CHEMISTRY ORDERABLES Performing Organization Address City/[facility]/ZIP Co de Phone Number [facility] [place] [address] * (ABNORMAL) Basic Metabolic Panel (06/16/2024 12:09 AM EST) Glucose 92 65 - 199 mg/dL 06/16/2024 12:50 AM [facility] Comment:Glucose Concentratio n >=200 mg/dL plus symptoms is consistent with Diabetes Mellitus. Blood Urea Nitrogen 12 10 - 20 mg/dL 06/16/2024 12:50 AM [facility] Creatinine 0.92 0.80 - 1.50 mg/dL 06/16/2024 12:50 AM [facility] Sodium 131(L) 135 - 145 mMol/L 06/16/2024 12:50 AM [facility] Potassium 3.9 3.5 - 5.0 mMol/L 06/16/2024 12:50 AM [facility] Chloride 99 98 - 107 mMol/L 06/16/2024 12:50 AM [facility] Carbon Dioxide 22 22 - 31 mMol/L 06/16/2024 12:50 AM [facility] Anion Gap 10 5 - 15 mMol/L 06/16/2024 12:50 AM EST [facility] Calcium 8.3(L) 8.5 - 10.5 mg/dL 06/16/2024 12:50 AM EST [facility] Est Glomerular Filtration Rate - Male 112 mL/min/1. 73 m?? 06/16/2024 12:50 AM EST [facility] Comment: This patient's estimated GFR was [...] AM EST Martinez Reynolds MD CHEMISTRY ORDERABLES [facility] [place] [address] * (ABNORMAL) Sodium (2024 5:58 PM EST) Sodium 129(L) 135 - 145 mMol/L 2024 6:37 PM EST [facility] Blood VENOUS BLOOD SPECIMEN / Unknown Venipuncture / Unknown 2024 5:58 PM EST 2024 6:05 PM EST Marline Calderon APRN CHEMISTRY ORDERABL ES Performing Organization Address City/[facility]/ZIP Co de Phone Number [facility] [place] [address] * MRI Brain wwo Contrast (Generic) (2024 4:20 PM EST) WORKSTATION ID [id number] RAD Anatomical Region Laterality Modality Head Magnetic [...] who have questions please contact the health coronary care unit nurse that requested your imaging first. ? Electronically signed by: Raudel Heredia MD, [facility] ([phone]), at 2024 4:46 PM Narrative 2024 4:46 [...] clip with its blades near the right TEST TECH. Procedure Note Raudel Heredia MD - 2024 [...] aneurysm clipwith its blades near the right TEST TECH. IMPRESSION Homogeneously enhancing 3.5 cm mass along [...] patients who have questions please contactthe health coronary care unit nurse that requested your imaging first. Marline Calderon APRN IMG MRI ORDERABLES * (ABNORMAL) Sodium (2024 12:07 PM EST) Sodium 129(L) 135 - 145 mMol/L 2024 12:47 PM EST [facility] Blood VENOUS BLOOD SPECIMEN / Unknown Venipuncture / Unknown 2024 12:07 PM EST 2024 12:33 PM EST Marline Calderon MESS ATTENDANT CREW CHEMISTRY ORDERABL ES Performing Organization Address City/[facility]/ZIP Co de Phone Number [facility] [place] [address] * (ABNORMAL) Sodium (2024 5:54 AM EST) Sodium 128(L) 135 - 145 mMol/L 2024 6:42 AM EST [facility] Blood VENOUS BLOOD SPECIMEN / Unknown Venipuncture / Unknown 2024 5:54 AM EST 2024 6:14 AM EST Marline Pack Kvng MESS ATTENDANT CREW CHEMISTRY ORDERABL ES Performing Organization Address City/[facility]/ZIP Co de Phone Number [facility] [place] [address] * (ABNORMAL) CBC (with Diff) (2024 12:06 AM EST) White Blood Cell 6.30 4.00 - 9.50 x10(3)/mc L 2024 12:17 AM [facility] Red Blood Cell 4.79 4.58 - 5.54 x10(6)/mc L 2024 12:17 AM [facility] Hemoglobin 11.9(L) 13.7 - 16.5 g/dL 2024 12:17 AM [facility] Hematocrit 34.2(L) 40.5 - 48.5 % 2024 12:17 AM [facility] Mean Cell Volume 71.4(L) 82.9 - 93.1 fL 2024 12:17 AM [facility] Mean Cell Hemoglobin 24.8(L) 27.5 - 32.1 pg 2024 12:17 AM [facility] Mean Cell Hemoglobin Concentration 34.8 32.0 - 35.7 g/dL 2024 12:17 AM [facility] Platelet 269 145 - 357 x10(3)/mc L 2024 12:17 AM [facility] Mean Platelet Volume 9.1 7.6 - 12.9 fL 2024 12:17 AM [facility] RDW Standard Deviation 35.5(L) 36.0 - 45.0 fL 2024 12:17 AM [facility] RDW coefficient of variation 13.9(H) 11.4 - 13.8 % 2024 12:17 AM [facility] NRBC% auto 0.0 % 2024 12:17 AM [facility] NRBC Absolute <0.01 <0.01 x10(3)/mc L 2024 12:17 AM [facility] Neutrophil % 57.9 % 2024 12:17 AM [facility] Neutrophil Absolute (ANC) - Automated 3.65 1.70 - 6.10 x10(3)/mc L 2024 12:17 AM [facility] Lymph % 30.3 % 2024 12:17 AM [facility] Lymph Absolute 1.91 0.90 - 3.20 x10(3)/mc L 2024 12:17 AM [facility] Monocyte % 9.7 % 2024 12:17 AM [facility] Monocyte Absolute 0.61 0.30 - 0.90 x10(3)/mc L 2024 12:17 AM [facility] Eos % 1.3 % 2024 12:17 AM [facility] Eos Absolute 0.08 0.00 - 0.40 x10(3)/mc L 2024 12:17 AM EST [facility] Basophil % 0.3 % 2024 12:17 AM [facility] Baso Absolute <0.04 0.00 - 0.10 x10(3)/mc L 2024 12:17 AM [facility] Immature Gran % 0.5 % 12:17 AM [facility] Immature Gran Absolute <0.04 0.00 - 0.04 x10(3)/mc L 2024 12:17 AM [facility] Blood VENOUS BLOOD SPECIMEN / Unknown Venipuncture / Unknown 2024 12:06 AM EST 2024 12:10 AM EST Martinez Reynolds MD HEMATOLOGY ORDERABLE S [facility] [place] [address] * Phosphorus (2024 12:06 AM EST) Phosphorus 2.8 2.5 - 4.5 mg/dL 2024 12:39 AM [facility] Blood VENOUS BLOOD SPECIMEN / Unknown Venipuncture / Unknown 2024 12:06 AM EST 2024 12:10 AM EST Martinez Reynolds [place] [address] * Magnesium (2024 12:06 AM EST) Magnesium 0.79 0.69 - 1.07 mMol/L 2024 12:39 AM EST [facility] Blood VENOUS BLOOD SPECIMEN / Unknown Venipuncture / Unknown 2024 12:06 AM EST 2024 12:10 AM EST Martinez Reynolds MD CHEMISTRY ORDERABLES [facility] [place] [address] * (ABNORMAL) Basic Metabolic Panel (2024 12:06 AM EST) Glucose 103 65 - 199 mg/dL 2024 12:39 AM [facility] Comment:Glucose Concentratio n >=200 mg/dL plus symptoms is consistent with Diabetes Mellitus. Blood Urea Nitrogen 14 10 - 20 mg/dL 2024 12:39 AM [facility] Creatinine 0.74(L) 0.80 - 1.50 mg/dL 2024 12:39 AM [facility] Sodium 128(L) 135 - 145 mMol/L 2024 12:39 AM [facility] Potassium 4.1 3.5 - 5.0 mMol/L 2024 12:39 AM [facility] Chloride 97(L) 98 - 107 mMol/L 2024 12:39 AM [facility] Carbon Dioxide 19(L) 22 - 31 mMol/L 2024 12:39 AM [facility] Anion Gap 12 5 - 15 mMol/L 2024 12:39 AM [facility] Calcium 8.1(L) 8.5 - 10.5 mg/dL 2024 12:39 AM [facility] Est Glomerular Filtration Rate - Male 122 mL/min/1. 73 m?? 2024 12:39 AM [facility] Comment: This patient's estimated GFR was [...] Reynolds MD CHEMISTRY ORDERABLES Performing Organization Address City/[facility]/ZIP Co de Phone Number [facility] [place] [address] * (ABNORMAL) Sodium (06/14/2024 6:49 PM EST) Sodium 126(L) 135 - 145 mMol/L 06/14/2024 7:17 PM EST [facility] Blood VENOUS BLOOD SPECIMEN / Unknown Venipuncture / Unknown 06/14/2024 6:49 PM EST 06/14/2024 6:53 PM EST Marline Calderon APRN CHEMISTRY ORDERABL ES Performing Organization Address [facility] Co de Phone Number [facility] [place] [address] * EEG Continuous Monitoring Inpatient (06/14/2024 3:33 [...] - 145 mMol/L 06/14/2024 3:18 PM EST [facility] Blood VENOUS BLOOD SPECIMEN / Unknown Venipuncture / Unknown 06/14/2024 2:15 PM EST 06/14/2024 2:36 PM EST Mariola Alfred MD CHEMISTRY ORDERABLES Performing Organization Address City/[facility]/ZIP Co de Phone Number [facility] [place] [address] * (ABNORMAL) Sodium (06/14/2024 12:12 PM EST) Sodium 125(L) 135 - 145 mMol/L 06/14/2024 12:48 PM EST [facility] Blood VENOUS BLOOD SPECIMEN / Unknown Venipuncture / Unknown 06/14/2024 12:12 PM EST 06/14/2024 12:20 PM EST Mariola Alfred MD CHEMISTRY ORDERABLES Performing Organization Address City/[facility]/ZIP Co de Phone Number [facility] [place] [address] * (ABNORMAL) Sodium (06/14/2024 10:35 AM EST) Sodium 125(L) 135 - 145 mMol/L 06/14/2024 11:21 AM EST [facility] Blood VENOUS BLOOD SPECIMEN / Unknown Venipuncture / Unknown 06/14/2024 10:35 AM EST 06/14/2024 10:44 AM EST Mariola Alfred MD CHEMISTRY ORDERABLES Performing Organization Address City/[facility] Co de Phone Number [facility] [place] [address] * Request For 2nd Read CT Head (06/14/2024 9:46 AM EST) WORKSTATION ID [id number] RAD Anatomical Region Laterality Modality Head SO [...] who have questions please contact the health coronary care unit nurse that requested your imaging first. ? Narrative 06/14/2024 10:41 AM EST EXAMINATION: REQUEST FOR 2ND READ CT HEAD CLINICAL HISTORY: New seizure with known mass, ?enlargening. Presenting with seizure; Sending Institution [facility]; Date of exam [id number]; I believe a reinterpretation of this exam may alter care of Patient. Yes TECHNIQUE: Reinterpretation of noncontrast CT head performed at [facility] 06/13/2024 at 2143 hours COMPARISON: [...] known mass, ?enlargening. Presentingwith seizure; Sending Institution [facility]; Date of exam [id number]; I believe a reinterpretation of this exam may alter care of Patient. Yes TECHNIQUE: Reinterpretation of noncontrast CT head performed at [facility] 06/13/2024 at 2143 hours COMPARISON: Noncontrast [...] patients who have questions please contactthe health coronary care unit nurse that requested your imaging first. Lexie Osullivan MESS ATTENDANT CREW IMG OUTSIDE INTERP RETATION ORDERABLES * (ABNORMAL) Urinalysis Microscopic (06/14/2024 8:06 AM EST) Bacteria, Urine None None /HPF 12:26 PM EST [facility] Amorphous Crystals, Urine Many(A) None /HPF 06/14/2024 12:26 PM [facility] RBC, Urine 1 0 - 3 /HPF 06/14/2024 12:26 PM [facility] WBC, Urine 1 0 - 3 /HPF 06/14/2024 12:26 PM [facility] Squamous Epithelial Cells, Urine 0 0 - 5 /HPF 06/14/2024 12:26 PM [facility] Hyaline Casts, Urine 0 0 - 2 /LPF 06/14/2024 12:26 PM [facility] Urine URINE SPECIMEN / Unknown Non Blood Collection / Unknown 06/14/2024 8:06 AM EST 06/14/2024 8:52 AM EST Marline L Kvng KELLOGGN URINE ORDERABLES Performing Organization Address [facility] Phone Number [facility] [place] [address] * Urinalysis Microscopic Exam (06/14/2024 8:06 AM EST) Urine URINE SPECIMEN / Unknown Non Blood Collection / Unknown 06/14/2024 8:06 AM EST 06/14/2024 8:52 AM EST Marline Calderon APRN URINE ORDERABLES Performing Organization Address City/[facility] Co ar Phone Number [facility] [place] [address] * (ABNORMAL) Urinalysis Dipstick (06/14/2024 8:06 AM EST) Glucose, Urine Dipstick Negative Negative 06/14/2024 12:26 PM [facility] Protein, Urine Dipstick Negative Negative 06/14/2024 12:26 PM [facility] Bilirubin, Urine Dipstick Negative Negative 06/14/2024 12:26 PM [facility] Comment:Clinical correlation required for positive Urine Bilirubin results as false positive may occur with some drugs and drug related products. If a false positive is suspected a serum total bilirubin should be considered if clinically indicated. Urobilinogen, Urine Dipstick Normal Normal, 0.2 mg/dL, 1.0 mg/dL 06/14/2024 12:26 PM [facility] pH, Urine (dipstick) 7.0 5.0 - 8.0 06/14/2024 12:26 PM [facility] Blood, Urine Dipstick Negative Negative 06/14/2024 12:26 PM [facility] Ketone, Urine Dipstick Negative Negative 06/14/2024 12:26 PM [facility] Nitrite, Urine Dipstick Negative Negative 06/14/2024 12:26 PM [facility] Leukocytes, Urine Dipstick Negative Negative 06/14/2024 12:26 PM [facility] Specific [place] Urine Automated 1.016 1.005 - 1.030 06/14/2024 12:26 PM [facility] Appearance, Urine Dipstick Turbid(A) Clear 06/14/2024 12:26 PM [facility] Color, Urine Dipstick Yellow Yellow, Dark Yellow 06/14/2024 12:26 PM [facility] CULTURE ADDED? 06/14/2024 12:26 PM [facility] Urine URINE SPECIMEN / Unknown Non Blood Collection / Unknown 06/14/2024 8:06 AM EST 06/14/2024 8:52 AM EST Marline Calderon APRN URINE ORDERABLES [facility] [place] [address] * (ABNORMAL) Sodium (06/14/2024 8:06 AM EST) Sodium 124(L) 135 - 145 mMol/L 06/14/2024 9:59 AM [facility] Blood VENOUS BLOOD SPECIMEN / Unknown Venipuncture / Unknown 06/14/2024 8:06 AM EST 06/14/2024 8:53 AM EST Mariola Alfred MD CHEMISTRY ORDERABLES Performing Organization Address [facility]/ZIP Co de Phone Number [facility] [place] [address] * Electrolytes, urine, random (06/14/2024 8:06 AM EST) Sodium, Urine 76 mMol/L 06/14/2024 10:44 AM EST [facility] Potassium, Urine 41 mMol/L 06/14/2024 10:44 AM EST [facility] Chloride, Urine 52 mMol/L 06/14/2024 10:44 AM EST [facility] Urine URINE SPECIMEN / Unknown Non Blood Collection / Unknown 06/14/2024 8:06 AM EST 06/14/2024 8:52 AM EST Mariola Alfred MD URINE ORDERABLES Performing Organization Address [facility] Co de Phone Number [facility] [place] [address] * Osmolality, urine, random (06/14/2024 8:06 AM EST) Osmolality, Urine 496 50 - 1,200 mOsm/kg 06/14/2024 10:55 AM EST [facility] Urine URINE SPECIMEN / Unknown Non Blood Collection / Unknown 06/14/2024 8:06 AM EST 06/14/2024 8:52 AM EST Mariola Alfred MD URINE ORDERABLES Performing Organization Address City/[facility]/ZIP Co de Phone Number [facility] [place] [address] * (ABNORMAL) CBC (with Diff) (06/14/2024 5:27 AM EST) White Blood Cell 8.68 4.00 - 9.50 x10(3)/mc L 06/14/2024 5:54 AM EST [facility] Red Blood Cell 5.08 4.58 - 5.54 x10(6)/mc L 06/14/2024 5:54 AM [facility] Hemoglobin 12.5(L) 13.7 - 16.5 g/dL 06/14/2024 5:54 AM [facility] Hematocrit 35.8(L) 40.5 - 48.5 % 06/14/2024 5:54 AM [facility] Mean Cell Volume 70.5(L) 82.9 - 93.1 fL 06/14/2024 5:54 AM [facility] Mean Cell Hemoglobin 24.6(L) 27.5 - 32.1 pg 06/14/2024 5:54 AM [facility] Mean Cell Hemoglobin Concentration 34.9 32.0 - 35.7 g/dL 06/14/2024 5:54 AM [facility] Platelet 284 145 - 357 x10(3)/mc L 06/14/2024 5:54 AM [facility] Mean Platelet Volume 9.2 7.6 - 12.9 fL 06/14/2024 5:54 AM [facility] RDW Standard Deviation 34.3(L) 36.0 - 45.0 fL 06/14/2024 5:54 AM [facility] RDW coefficient of variation 13.6 11.4 - 13.8 % 06/14/2024 5:54 AM [facility] NRBC% auto 0.0 % 06/14/2024 5:54 AM [facility] NRBC Absolute <0.01 <0.01 x10(3)/mc L 06/14/2024 5:54 AM [facility] Neutrophil % 81.7 % 06/14/2024 5:54 AM [facility] Neutrophil Absolute (ANC) - Automated 7.09(H) 1.70 - 6.10 x10(3)/mc L 06/14/2024 5:54 AM [facility] Lymph % 13.0 % 06/14/2024 5:54 AM [facility] Lymph Absolute 1.13 0.90 - 3.20 x10(3)/mc L 06/14/2024 5:54 AM [facility] Monocyte % 4.3 % 06/14/2024 5:54 AM [facility] Monocyte Absolute 0.37 0.30 - 0.90 x10(3)/mc L 06/14/2024 5:54 AM [facility] Eos % 0.2 % 06/14/2024 5:54 AM [facility] Eos Absolute <0.04 0.00 - 0.40 x10(3)/mc L 06/14/2024 5:54 AM [facility] Basophil % 0.2 % 06/14/2024 5:54 AM [facility] Baso Absolute <0.04 0.00 - 0.10 x10(3)/mc L 06/14/2024 5:54 AM [facility] Immature Gran % 0.6 % 5:54 AM [facility] Immature Gran Absolute 0.05(H) 0.00 - 0.04 x10(3)/mc L 06/14/2024 5:54 AM [facility] Blood VENOUS BLOOD SPECIMEN / Unknown Venipuncture / Unknown 06/14/2024 5:27 AM EST 06/14/2024 5:45 AM EST Martinez Reynolds MD HEMATOLOGY ORDERABLE S Performing Organization Address City/State/[facility] Co de Phone Number [facility] [place] [address] * Phosphorus (06/14/2024 5:27 AM EST) Phosphorus 2.8 2.5 - 4.5 mg/dL 06/14/2024 8:36 AM [facility] Blood VENOUS BLOOD SPECIMEN / Unknown Venipuncture / Unknown 06/14/2024 5:27 AM EST 06/14/2024 5:45 AM EST Martinez Reynolds MD CHEMISTRY ORDERABLES [facility] [place] [address] * Magnesium (06/14/2024 5:27 AM EST) Pathologist [facility] Magnesium 0.83 0.69 - 1.07 mMol/L 06/14/2024 6:22 AM [facility] Blood VENOUS BLOOD SPECIMEN / Unknown Venipuncture / Unknown 06/14/2024 5:27 AM EST 06/14/2024 5:45 AM EST Martinez Reynolds MD CHEMISTRY ORDERABLES Performing Organization Address City/[facility]/ZIP Co de Phone Number [facility] [place] [address] * (ABNORMAL) Basic Metabolic Panel (06/14/2024 5:27 AM EST) Pathologist [facility] Glucose 109 65 - 199 mg/dL 06/14/2024 6:22 AM [facility] Comment:Glucose Concentratio n >=200 mg/dL plus symptoms is consistent with Diabetes Mellitus. Blood Urea Nitrogen 14 10 - 20 mg/dL 06/14/2024 6:22 AM [facility] Creatinine 0.76(L) 0.80 - 1.50 mg/dL 06/14/2024 6:22 AM [facility] Sodium 124(L) 135 - 145 mMol/L 06/14/2024 6:22 AM [facility] Potassium 4.0 3.5 - 5.0 mMol/L 06/14/2024 6:22 AM [facility] Chloride 93(L) 98 - 107 mMol/L 06/14/2024 6:22 AM [facility] Carbon Dioxide 19(L) 22 - 31 mMol/L 06/14/2024 6:22 AM [facility] Anion Gap 12 5 - 15 mMol/L 06/14/2024 6:22 AM [facility] Calcium 7.9(L) 8.5 - 10.5 mg/dL 06/14/2024 6:22 AM EST [facility] Est Glomerular Filtration Rate - Male 122 mL/min/1. 73 m?? 06/14/2024 6:22 AM EST [facility] Comment: This patient's estimated GFR was [...] AM EST Martinez Reynolds MD CHEMISTRY ORDERABLES [facility] [place] [id number] * XR Chest One [place] (06/14/2024 4:02 AM EST) Delivery Agent WORKSTATION ID [id number] RAD Anatomical Region Laterality Modality Chest N/A [...] who have questions please contact the health coronary care unit nurse that requested your imaging first. ? Electronically signed by: Beverley Valencia MD, [facility] ([phone]), at 06/14/2024 4:32 AM Narrative 06/14/2024 4:32 [...] patients who have questions please contactthe health coronary care unit nurse that requested your imaging first. Electronically signed by: Beverley Valencia MD, [facility]([phone]), at 06/14/2024 4:32 AM Mariola Alfred MD IMG DX ORDERABLES * (ABNORMAL) Sodium (06/14/2024 3:32 AM EST) Sodium 122(L) 135 - 145 mMol/L 06/14/2024 4:02 AM EST [facility] Blood VENOUS BLOOD SPECIMEN / Unknown Venipuncture / Unknown 06/14/2024 3:32 AM EST 06/14/2024 3:37 AM EST Mariola Alfred MD CHEMISTRY ORDERABLES [facility] [place] [address] * (ABNORMAL) Blood Gas, Venous POC (06/14/2024 1:35 AM EST) pH, Venous 7.39 7.32 - 7.42 06/14/2024 1:36 AM [facility] PCO2, Venous 37(L) 38 - 58 mmHg 06/14/2024 1:36 AM [facility] PO2, Venous 27 16 - 65 mmHg 06/14/2024 1:36 AM [facility] Bicarbonate, Venous 21.9(L) 22 - 31 mmol/L 06/14/2024 1:36 AM [facility] Base Excess, Venous -3.1(L) 1.9 - 4.5 mmol/L 06/14/2024 1:36 AM [facility] Hemoglobin, Venous 13.4(L) 13.7 - 16.5 g/dL 06/14/2024 1:36 AM [facility] Oxyhemoglobin, Venous 46.8 % 06/14/2024 1:36 AM [facility] Carboxyhemoglobin , Venous 0.7 % 06/14/2024 1:36 AM [facility] Comment: Nonsmokers: 0.5-1.5% COHB ?? Smokers: Variable ??but usually less than 10% ?? Toxic: 20-30% COHB ?? Lethal: Greater than 60% COHB Methemoglobin, Venous 0.3 <=1.5 % 06/14/2024 1:36 AM [facility] Sodium, Venous 123(L) 135 - 145 mmol/L 06/14/2024 1:36 AM [facility] Potassium, Venous 3.7 3.5 - 5.0 mmol/L 06/14/2024 1:36 AM [facility] Chloride, Venous 92(L) 98 - 107 mmol/L 06/14/2024 1:36 AM [facility] Glucose, Venous 85 65 - 199 mg/dL 06/14/2024 1:36 AM [facility] Comment:Glucose Concentratio n >=200 mg/dL plus symptoms is consistent with Diabetes Mellitus. Lactate, Venous 2.3(H) 0.5 - 2.2 mmol/L 06/14/2024 1:36 AM [facility] Ionized Calcium, Venous 1.10(L) 1.15 - 1.33 mmol/L 06/14/2024 1:36 AM [facility] Blood VENOUS BLOOD SPECIMEN / Unknown 06/14/2024 1:35 AM EST 06/14/2024 1:36 AM EST Mariola Alfred MD POINT OF CARE TEST O ELISABET Performing Organization Address [facility] Co de Phone Number [facility] [place] [address] * POC, GLUCOSE (06/14/2024 1:06 AM EST) [facility] Glucometer, POC 113 65 - 199 mg/dL 06/14/2024 1:06 AM [facility] Comment:Supplemental ranges: <140 mg/dL before meals <180 mg/dL all other times of the day. Blood CAPILLARY BLOOD / Unknown 06/14/2024 1:06 AM EST 06/14/2024 1:06 AM EST Mariola Alfred MD POINT OF CARE TEST O ELISABET Performing Organization Address City/[facility]/ZIP Co de Phone Number [facility] [place] [address] * EKG 12 Lead (06/14/2024 1:04 AM EST) Ventricular rate 85 BPM MUSE SYSTEM Atrial Rate 85 BPM MUSE SYSTEM P-R Interval 182 ms MUSE SYSTEM QRS Duration 94 ms MUSE SYSTEM Q-T Interval 388 ms MUSE SYSTEM QTC Calculated (Bezet) 461 ms MUSE SYSTEM Calculated P [place] 35 degrees MUSE SYSTEM Calculated R [place] 57 degrees MUSE SYSTEM Calculated T [place] 48 degrees MUSE SYSTEM INTERPRETATION Normal sinus rhythm Normal ECG When compared with ECG of 01-MAR-2018 09:20, Nonspecific T wave abnormality no longer evident in Inferior leads T wave inversion no longer evident in Lateral leads I personally reviewed the tracing and edited the fellows interpretation Confirmed by fellow Rosalie Obrien ([id number]) on 2024 9:31:30 PM Confirmed by Hannah Marin MD ([id number]) on 06/17/2024 11:43:44 AM MUSE SYSTEM 06/14/2024 1:04 AM EST 06/17/2024 11:43 AM EST Mariola Alfred MD ECG ORDERABLES MUSE SYSTEM * Scan, Peripheral Blood (06/14/2024 1:03 AM EST) RBC Morphology Abnormal 06/14/2024 2:00 AM EST [facility] Platelet Estimate Normal Normal 06/14/2024 2:00 AM [facility] Microcyte 1-5 /HPF 06/14/2024 2:00 AM [facility] Tear Cell 1-5 /HPF 06/14/2024 2:00 AM [facility] Blood VENOUS BLOOD SPECIMEN / Unknown Venipuncture / Unknown 06/14/2024 1:03 AM EST 06/14/2024 1:08 AM EST Mariola Alfred MD HEMATOLOGY ORDERABLE S [facility] [place] [address] * (ABNORMAL) CBC (with Diff) (06/14/2024 1:03 AM EST) White Blood Cell 10.38(H) 4.00 - 9.50 x10(3)/mc L 06/14/2024 2:00 AM EST [facility] Red Blood Cell 5.05 4.58 - 5.54 x10(6)/mc L 06/14/2024 2:00 AM [facility] Hemoglobin 12.2(L) 13.7 - 16.5 g/dL 06/14/2024 2:00 AM [facility] Hematocrit 35.5(L) 40.5 - 48.5 % 06/14/2024 2:00 AM [facility] Mean Cell Volume 70.3(L) 82.9 - 93.1 fL 06/14/2024 2:00 AM [facility] Mean Cell Hemoglobin 24.2(L) 27.5 - 32.1 pg 06/14/2024 2:00 AM [facility] Mean Cell Hemoglobin Concentration 34.4 32.0 - 35.7 g/dL 06/14/2024 2:00 AM [facility] Platelet 276 145 - 357 x10(3)/mc L 06/14/2024 2:00 AM [facility] Mean Platelet Volume 9.0 7.6 - 12.9 fL 06/14/2024 2:00 AM [facility] RDW Standard Deviation 33.6(L) 36.0 - 45.0 fL 06/14/2024 2:00 AM [facility] RDW coefficient of variation 13.4 11.4 - 13.8 % 06/14/2024 2:00 AM [facility] NRBC% auto 0.0 % 06/14/2024 2:00 AM [facility] NRBC Absolute <0.01 <0.01 x10(3)/mc L 06/14/2024 2:00 AM [facility] Neutrophil % 85.7 % 06/14/2024 2:00 AM [facility] Neutrophil Absolute (ANC) - Automated 8.90(H) 1.70 - 6.10 x10(3)/mc L 06/14/2024 2:00 AM [facility] Lymph % 8.4 % 06/14/2024 2:00 AM [facility] Lymph Absolute 0.87(L) 0.90 - 3.20 x10(3)/mc L 06/14/2024 2:00 AM [facility] Monocyte % 4.4 % 06/14/2024 2:00 AM [facility] Monocyte Absolute 0.46 0.30 - 0.90 x10(3)/mc L 06/14/2024 2:00 AM [facility] Eos % 0.5 % 06/14/2024 2:00 AM [facility] Eos Absolute 0.05 0.00 - 0.40 x10(3)/mc L 06/14/2024 2:00 AM [facility] Basophil % 0.2 % 06/14/2024 2:00 AM [facility] Baso Absolute <0.04 0.00 - 0.10 x10(3)/mc L 06/14/2024 2:00 AM [facility] Immature Gran % 0.8 % 2:00 AM [facility] Immature Gran Absolute 0.08(H) 0.00 - 0.04 x10(3)/mc L 06/14/2024 2:00 AM [facility] Blood VENOUS BLOOD SPECIMEN / Unknown Venipuncture / Unknown 06/14/2024 1:03 AM EST 06/14/2024 1:08 AM EST Martinez Reynolds MD HEMATOLOGY ORDERABLE S [facility] [place] [address] * (ABNORMAL) Phosphorus (06/14/2024 1:03 AM EST) Phosphorus 1.5(L) 2.5 - 4.5 mg/dL 06/14/2024 1:46 AM [facility] Blood VENOUS BLOOD SPECIMEN / Unknown Venipuncture / Unknown 06/14/2024 1:03 AM EST 06/14/2024 1:08 AM EST Martinez Reynolds MD CHEMISTRY ORDERABLES Performing Organization Address City/[facility]/ZIP Co de Phone Number [facility] [place] [address] * Magnesium (06/14/2024 1:03 AM EST) Magnesium 0.90 0.69 - 1.07 mMol/L 06/14/2024 1:46 AM [facility] Blood VENOUS BLOOD SPECIMEN / Unknown Venipuncture / Unknown 06/14/2024 1:03 AM EST 06/14/2024 1:08 AM EST Martinez Reynolds MD CHEMISTRY ORDERABLES Performing Organization Address City/[facility] Co de Phone Number [facility] [place] [address] * (ABNORMAL) Basic Metabolic Panel (06/14/2024 1:03 AM EST) Glucose 95 65 - 199 mg/dL 06/14/2024 1:49 AM [facility] Comment:Glucose Concentratio n >=200 mg/dL plus symptoms is consistent with Diabetes Mellitus. Blood Urea Nitrogen 14 10 - 20 mg/dL 06/14/2024 1:49 AM [facility] Creatinine 0.80 0.80 - 1.50 mg/dL 06/14/2024 1:49 AM [facility] Sodium 123(L) 135 - 145 mMol/L 06/14/2024 1:49 AM [facility] Potassium 3.7 3.5 - 5.0 mMol/L 06/14/2024 1:49 AM [facility] Chloride 91(L) 98 - 107 mMol/L 06/14/2024 1:49 AM [facility] Carbon Dioxide 19(L) 22 - 31 mMol/L 06/14/2024 1:49 AM [facility] Anion Gap 13 5 - 15 mMol/L 06/14/2024 1:49 AM EST [facility] Calcium 8.1(L) 8.5 - 10.5 mg/dL 06/14/2024 1:49 AM EST [facility] Est Glomerular Filtration Rate - Male 120 mL/min/1. 73 m?? 06/14/2024 1:49 AM EST [facility] Comment: This patient's estimated GFR was [...] AM EST Martinez Reynolds MD CHEMISTRY ORDERABLES [facility] [place] [address] * (ABNORMAL) Osmolality (06/14/2024 1:03 AM EST) Osmolality 259(L) 275 - 295 mOsm/kg 06/14/2024 1:40 AM EST [facility] Blood VENOUS BLOOD SPECIMEN / Unknown Venipuncture / Unknown 06/14/2024 1:03 AM EST 06/14/2024 1:08 AM EST Mariola Alfred MD CHEMISTRY ORDERABLES [facility] [place] [address] * T3 Total (06/14/2024 1:03 AM EST) T3 Total 87 80 - 200 ng/dL 06/14/2024 1:46 AM EST [facility] Blood VENOUS BLOOD SPECIMEN / Unknown Venipuncture / Unknown 06/14/2024 1:03 AM EST 06/14/2024 1:08 AM EST Mariola Alfred MD CHEMISTRY ORDERABLES Performing Organization Address [facility] Co de Phone Number [facility] [place] [address] * T4, free (06/14/2024 1:03 AM EST) Free T4 1.37 0.93 - 1.70 ng/dL 06/14/2024 1:46 AM EST [facility] Blood VENOUS BLOOD SPECIMEN / Unknown Venipuncture / Unknown 06/14/2024 1:03 AM EST 06/14/2024 1:08 AM EST Mariola Alfred MD CHEMISTRY ORDERABLES Performing Organization Address City/[facility] de Phone Number [facility] [place] [address] * Zonisamide level (06/14/2024 1:03 AM EST) Pathologist [facility] Zonisamide Lvl November 17 10 - 40 mcg/mL 06/16/2024 9:22 PM EST REF LAB [facility] Comment: ADDITIONAL INFORMATION This test was developed and its performance characteristics determined by [facility] in a manner consistent with CLIA requirements. This test has not been cleared or approved by the U.S. Food and Drug Administration. Blood VENOUS BLOOD SPECIMEN / Unknown Venipuncture / Unknown 06/14/2024 1:03 AM EST 06/14/2024 1:08 AM EST Narrative REF LAB [facility] 06/16/2024 9:22 PM EST Test Performed by: [facility] [address], [place] [address] Life Enrichment Specialist: Xavier Velásquez Ph.D.; CLIA# [id number] Mariola Alfred MD LAB SEND OUT ORDERAB LES REF LAB [place] [id number] [facility] [place] [address], [facility] documented in this encounter Visit Diagnoses Not on filedocumented in this encounter Admitting Diagnoses Diagnosis Hyponatremia [...] Oral, 2 TIMES DAILY, First dose on 06/19/24 at 1145, Until Discontinued, Routine Given 06/20/2024 8:15 PM EST 600 mg Given 06/19/2024 9:48 PM EST 600 mg aspirin chewable tablet 81 mg 81 mg, Oral, DAILY, First dose on 06/14/24 at 0900, Until Discontinued, Routine Given 06/21/2024 9:04 AM EST 81 mg Given 06/20/2024 8:32 AM EST 81 mg Given 06/19/2024 9:43 AM EST 81 mg atorvastatin (Lipitor) tablet 40 mg 40 mg, Oral, EVERY EVENING, First dose on 06/14/24 at 1700, Until Discontinued, Routine Given 06/20/2024 [...] Given 06/18/2024 9:42 PM EST 0.15 mg haloperidoL lactate (Haldol) (5 mg/mL) injection [...] Given 06/19/2024 12:21 PM EST 2 mg heparin (porcine) (5,000 units/1 mL) subcutaneous [...] Given 06/19/2024 6:53 AM EST 200 mcg magnesium citrate oral liquid 296 mL 296 mL, Oral, ONCE PRN, 1 dose, Starting on Fri06/16/24 at 1400, Until Fri06/21/24 at 1707, Constipation, Give if no BM 2 hr after previous interventions. If 2 hr after mag citrate there is still no BM, see order for tap water enema, if placed. Give concomitantly with any scheduled bowel medications ordered., Routine melatonin tablet 10.5 mg 10.5 mg (rounded from 10 mg), Oral, NIGHTLY, First dose (after last modification) on Fri06/18/24 at 1800, Until Discontinued, Routine Given 06/20/2024 5:56 PM EST 10.5 mg Given 06/19/2024 5:34 PM EST 10.5 mg montelukast (Singulair) tablet 10 mg 10 [...] Fri06/21/24 at 1707, Nausea, Vomiting, Routine pantoprazole EC (Protonix) tablet 40 mg 40 [...] DAILY, First dose (after last modification) on Jo Ann 06/17/24 at 2100, Until Discontinued, Routine Given 06/20/2024 8:13 PM EST 17 g Given 06/19/2024 8:45 PM EST 17 g Given 06/18/2024 9:50 PM EST 17 g prazosin (Minipress) capsule 2 mg 2 [...] 100 mg QUEtiapine XR (SeroqueL XR) tablet 50 mg [...] Given 06/18/2024 9:44 PM EST 2 tablets traZODone (Desyrel) tablet 100 mg 100 mg, [...] Oral, 2 TIMES DAILY, First dose on 06/19/24 at 1145, Until Discontinued, Routine 1145 (Not Given - Provider: Bell Amezcua RN - Reason: Medication not available)2147 (Given - Provider: Erik Dumont RN) 0900 [...] Amezcua RN)1548 (Given - Provider: Bell Amezcua RN)2014 (Given - Provider: Erik Dumont RN) 0904 [...] Routine 0945 (Given - Provider: Bell Amezcua RN)2030 (Given [...] Dumont, HEATHER) 0550 (Given - Provider: Erik Dumont, HEATHER) melatonin tablet 10.5 mg 10.5 mg (rounded from 10 mg), Oral, NIGHTLY, First dose (after last modification) on Fri06/18/24 at 1800, Until Discontinued, Routine 1734 (Given - Provider: Blel Amezcua RN) 175 (Given - Provider: Bell Amezcua RN) montelukast [...] on Fri06/17/24 at 2100, Until Discontinued, Routine 09 (Not Given - Provider: Bell Amezcua RN [...] 0835 (Given - Provider: Bell Amezcua RN) 09 (Given - Provider: Bell Amezcua RN) senna-docusate [...] Dumont RN) 2013 (Given - Provider: Erik Dumont, HEATHER) zonisamide (Zonegran) capsule 400 mg 400 mg, Oral, NIGHTLY, First dose (after last modification) on Fri06/14/24 at 0430, Until Discontinued, DO NOT SPLIT, CRUSH OR OPEN, Routine 2034 (Given - Provider: Erik Dumont RN) 2040 (Given - Provider: Erik Dumont RN) PRN Medication Order 06/19/2024 06/20/2024 06/21/2024 acetaminophen (Tylenol) tablet 975 mg 975 mg, Oral, EVERY 6 HOURS PRN, Starting on Fri06/17/24 at 0445, Until Fri06/21/24 at 1707, Pain, - Maximum dose of acetaminophen is 4,000 mg from all sources in 24 hours. - Unless otherwise specified, when ordered PRN for pain, acetaminophen should be given first if other PRN pain medications are ordered., Routine 161 (Given - Provider: Bell Amezcua RN) 26 (Given - Provider: Erik Dumont, RN)2013 (Given - Provider: Erik Dumont, RN) bisacodyL (Dulcolax) suppository 10 mg(Linked Group [...] 1221 (Given - Provider: Bell Amezcua RN) 29 (Given - Provider: Erik Dumont, HEATHER)2302 (Given - Provider: Erik Dumont, HEATHER) lactulose (Chronulac) (0.67 gram/mL) oral liquid 20 [...] Vomiting 0034 (Given - Provider: Erik Dumont, RN) ondansetron (Zofran) tablet 4 mg(Linked Group 4) 4 mg, Oral, EVERY 8 HOURS PRN, Starting on Fri06/20/24 at 0028, Until Fri06/21/24 at 1707, Nausea, Vomiting, Routine 0034 (See Alternative - Provider: Erik Dumont, RN) polyethylene glycoL (Miralax) packet 17 g(Linked Group [...] Routine 1205 (Given - Provider: Bell Amezcua, RN)1511 (Given - Provider: Bell Amezcua, RN) 2013 (Given - Provider: Erik Dumont, HEATHER) [...] Vomiting documented in this encounter Care Teams Straight Cutter Machine Relationship Specialty Start Date End Date Ren Vaz MD PCP - General Family Medicine 06/02/20 06/17/24 documented as of this encounter
--- OUTSIDE RECORDS SUMMARY | 2024-06-28 14:02 | XMS_ITS | Encounter Summary ---
Author Organization [facility] [place] [address] Care Team Providers Care Credit Control Administrator Name Role Phone Ren Vaz MD Primary Care Provider [phone] Encounter Details Date Type Department Care Team (Late st Contact Info) Description 06/13/2024 Ancillary Procedure Radiology Library at [facility], [place] [id number] Ren Vaz MD [address] [place] [address] [id number] Social History Tobacco Use Types Packs/Day Years Used Date Smoking Tobacco: Never Smokeless Tobacco: Never Alcohol Use Standard Drinks/Week Comments No 0 (1 standard drink = 0.6 oz pur e alcohol) IPV Inpatient Questions Answer Date Recorded Prevent [...] 1:30 PM EST Office Visit Neurosurgery at [facility], [place] [id number] Eron Barriga MD [facility] [place] [address] documented as of this encounter Procedures Procedure Name Priority Date/Time Associated Diagnosis Comments FILM LIBRARY STORAGE ONLY CT HEAD Routine 06/13/2024 12:00 AM EST documented in this encounter Results * Film Library- Storage Only CT Head (06/13/2024 12:00 AM EST) Narrative [facility] - 06/14/2024 12:43 AM EST This exam is auto-finalizing. It's purpose is for storage only. Ren Vaz MD IMG FILM LIBRARY ORD ERABLES Performing Organization Address City/State/[facility] Co de Phone Number [place], [place] documented in this encounter Visit Diagnoses Not on filedocumented in this encounter Care Teams Credit Control Administrator Relationship Specialty Start Date End Date Ren Vaz MD PCP - General Family Medicine 06/02/20 06/17/24 documented as of this encounter
--- OUTSIDE RECORDS SUMMARY | 2024-06-28 14:02 | XMS_ITS | Encounter Summary ---
Author Organization [facility] [place] [address] Care Team Providers Care Adobe Block Maker Name Role Phone Lc Venegas Primary Care Provider [phone] Encounter Details Date Type Department Care Team (Late st Contact Info) Description 09/11/2018 [place] [address] Thuy Chu RN Social History Tobacco Use [...] Msg from Jessika Woodall NP at [facility], left msg that pt is doing well, possible aspiration pneumonia. Would like call back on how to proceed with steroid dosing and taper. [phone] and have hospitalist paged. documented in this encounter Plan of Treatment Upcoming Encounters Date Type Department Care Team (Late st Contact Info) Description 07/20/2024 1:30 PM EST [place] [address] Eron Barriga MD [facility] [place] [address] documented as of this encounter Visit Diagnoses Not on filedocumented in this encounter Care Teams Adobe Block Maker Relationship Specialty Start Date End Date Lc Venegas PA [address] [place] [address] PCP - General General Internal Medicine 09/03/17 documented as of this encounter
--- OUTSIDE RECORDS SUMMARY | 2024-06-28 14:02 | XMS_ITS | Encounter Summary ---
Author Organization [facility] Address [facility] [place] [address] Care Team Providers Care Colored Leather Setter Name Role Phone Lc Venegas Primary Care Provider [phone] Encounter Details Date Type Department Care Team (Late st Contact Info) Description 09/11/2018 [place] [address] Mariola Thomson MD [facility] DR ENDOCRINOLOGY [place] [address] Social History Tobacco Use Types Packs/Day Years [...] Note: Msg from Jessika Woodall NP at [facility], left msg that pt is doing well, possible aspiration pneumonia. Would like call back on how to proceed with steroid dosing and taper. [phone] and have hospitalist paged. Spoke with hospitalist who reported that pt was d/c Tripled AM dose, doubled afternoon dose for first day. 60mg -->40mg 2 days in the AM, 15mg in the afternoon 2 days 20mg 10mg was not febrile at d/c, back to baseline off acetaminophen Suspect aspiration pna Mariola Thomson MD [place]Y-4 [facility] [place] Pager #[phone] documented in this encounter Plan of Treatment Upcoming Encounters Date Type Department Care Team (Late st Contact Info) Description 07/20/2024 1:30 PM EST [place] [address] Eron Barriga MD [facility] [place] [address] documented as of this encounter Visit Diagnoses Not on filedocumented in this encounter Care Teams Colored Leather Setter Relationship Specialty Start Date End Date Lc Venegas PA [address] [place] [address] PCP - General General Internal Medicine 09/03/17 documented as of this encounter
--- OUTSIDE RECORDS SUMMARY | 2024-06-28 14:02 | XMS_ITS | Encounter Summary ---
Author Organization [facility] [place] [address] Care Team Providers Care Placing Judge Name Role Phone Lc Venegas Primary Care Provider [phone] Encounter Details Date Type Department Care Team (Late st Contact Info) Description 09/09/2018 Telephone [place] [phone] Thuy Chu RN Social History Tobacco Use [...] - 09/09/2018 11:06 AM EST Lala left [facility] requesting call back for instruction because pt is really sick today. R/c and lm for Lala to call back. Rcvd call back from Lala. Pt vomited this AM, not peeing consistently, lips blue, inaccurate temp readings (widely variable). She is taking pt to [facility] ED in [facility] (this call taking place at 11:14) and Lala would like Dr Thomson to call the ED there to consult and advise. Endocrinology Telephone Note: Called [facility] ED MD Spoke with MD there, warned them about his adrenal insufficiency and advised to stress dose if there is any concern whatsoever for hypOtension. If sodium derangements are present, will need to be admitted possibly for DDAVP adjustments. Provided my pager #. Mariola Thomson MD PGY-4 [facility] [place]ocr[place] Fellow Pager #[phone] documented in this encounter Plan of Treatment Upcoming Encounters Date Type Department Care Team (Late st Contact Info) Description 07/20/2024 1:30 PM EST Office [place] [address] Eron Barriga MD [facility] [place] [address] documented as of this encounter Visit Diagnoses Not on filedocumented in this encounter Care Teams Placing Judge Relationship Specialty Start Date End Date Lc Venegas PA [address] [place] [address] PCP - General General Internal Medicine 09/03/17 documented as of this encounter
--- OUTSIDE RECORDS SUMMARY | 2024-06-28 14:02 | XMS_ITS | Encounter Summary ---
Author Organization [facility] Address [facility] [place] [address] Care Team Providers Care Platen Drier Operator Name Role Phone Ren Vaz MD Primary Care Provider [phone] Encounter Details Date Type Department Care Team (Late st Contact Info) Description 06/14/2024 9:50 AM EST Ancillary Procedure Radiology [facility] [phone] Social History Tobacco Use Types Packs/Day Years Used Date Smoking Tobacco: Never Smokeless Tobacco: Never Alcohol Use Standard Drinks/Week Comments No 0 (1 standard drink = 0.6 oz pur e alcohol) [facility] Utilities Answer Date Recorded In the [...] time in the past 12 m [facility], were you homeless or living in a alf (including now)? No 2024 IPV Inpatient Questions [...] 1:30 PM EST [place] [address] Eron Barriga MD [facility] [place] [address] documented as of this encounter Procedures Procedure Name Priority Date/Time Associated Diagnosis Comments REQUEST FOR 2ND READ CT HEAD Routine 06/14/2024 9:46 AM EST documented in this encounter Results * Request For 2nd Read CT Head (06/14/2024 9:46 AM EST) WORKSTATION ID [id number] RAD Anatomical Region Laterality Modality Head SO [...] who have questions please contact the health animal caregiver that requested your imaging first. ? Narrative 06/14/2024 10:41 AM EST EXAMINATION: REQUEST FOR 2ND READ CT HEAD CLINICAL HISTORY: New seizure with known mass, ?enlargening. Presenting with seizure; Sending Institution [facility]; Date of exam [id number]; I [...] the azeb. No new territorial abnormalities of sena-white matter differentiation. No intracranial hemorrhage. Mastoid air cells are clear. Mucosal thickening of the paranasal sinuses. No acute calvarial abnormality. Procedure Note Galen Balderas MD - 06/14/2024 EXAMINATION: REQUEST FOR 2ND READ CT HEAD CLINICAL HISTORY: New seizure with known mass, ?enlargening. Presentingwith seizure; Sending Institution [facility]; Date of exam [id number]; I believe a reinterpretation of this exam may alter care of Patient. Yes TECHNIQUE: Reinterpretation of noncontrast CT head performed at [facility] 06/13/2024 at 2143 hours COMPARISON: Noncontrast [...] the azeb. No new territorial abnormalities of sena-white matter differentiation.No intracranial hemorrhage. Mastoid air cells [...] patients who have questions please contactthe health animal caregiver that requested your imaging first. Lexie Osullivan APRN IMG OUTSIDE INTERP RETATION ORDERABLES documented in this encounter Visit Diagnoses Not on filedocumented in this encounter Care Teams Platen Drier Operator Relationship Specialty Start Date End Date Ren Vaz MD PCP - General Family Medicine 06/02/20 06/17/24 documented as of this encounter
--- OUTSIDE RECORDS SUMMARY | 2024-06-28 14:02 | XMS_ITS | Encounter Summary ---
Author Organization [facility] Address [facility] [place] [address] Care Team Providers Care Flying Squad Worker Name Role Phone Lc Venegas Primary Care Provider [phone] Encounter Details Date Type Department Care Team (Late st Contact Info) Description 09/09/2018 Telephone [place] [address] Mariola Thomson MD [facility] [place] [address] Social History Tobacco Use Types Packs/Day Years [...] to admit pt. Mariola Thomson MD PGY-4 [facility] [place] Endocrinology Fellow Pager #[phone] documented in this encounter Plan of Treatment Upcoming Encounters Date Type Department Care Team (Late st Contact Info) Description 07/20/2024 1:30 PM EST Office [place] [address] Eron Barriga MD [facility] [place] [address] documented as of this encounter Visit Diagnoses Not on filedocumented in this encounter Care Teams Flying Squad Worker Relationship Specialty Start Date End Date Lc Venegas PA [address] [place] [address] PCP - General General Internal Medicine 09/03/17 documented as of this encounter
--- OUTSIDE RECORDS SUMMARY | 2024-06-28 14:02 | XMS_ITS | Encounter Summary ---
Author Organization [facility] [place] [address] Care Team Providers Care Inbound Telemarketer Name Role Phone Lc Venegas Primary Care Provider [phone] Encounter Details Date Type Department Care Team (Late st Contact Info) Description 06/11/2018 Tele[place] [phone] Mariola Gipson Social History Tobacco Use Types [...] 1:30 PM EST [place] [phone] Eron Barriga MD [facility] [place] [address] documented as of this encounter Visit Diagnoses Not on filedocumented in this encounter Care Teams Inbound Telemarketer Relationship Specialty Start Date End Date Lc Venegas PA [address] [place] [address] PCP - General General Internal Medicine 09/03/17 documented as of this encounter
--- OUTSIDE RECORDS SUMMARY | 2024-06-28 14:06 | XMS_ITS | Encounter Summary ---
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 d/c planning on behalf of care management. Received call back from [facility] GLUE [employer]ER Kris Back, discussed with him the importance of timely discharge to a new living situation. Kris assured care management that the agency is working very hard to secure permanent housing and that he will obtain updates from his team and relay to care management. Again emphasized concern with protracted hospital stay given patient's status as a vulnerable adult. Advised that agency could have advocated to transfer DS services to another [facility] where client's needs could have been met sooner. Also relayed concern about communication delays from [facility]. Recvd calls from Carissa Posada [phone] confirming patient's plan for d/c to [facility] tomorrow via ambulance, and that [facility] staff are visiting patient today to retrieve DME and medications to prepare patient for tomorrow. Recvd call from Rob high rigger at [employer] to check patient status. Returned his call [phone] with update as above. Confirmed with primary RN LUCAS Clarke that DME, medications are ordered and in process of retrieval with [facility], and that ambulance will be arranged for early afternoon 03/12. Continue to be available for complex discharge planning needs on behalf of care mangement. Echo Hanson RN, MSN, ACM Dining Room Manager - Care Management [phone] / [phone] pager [email or web address] * Dario Gallegos MD - 03/11/2018 12:14 PM EDT Hospital Medicine Attending Inpatient Daily Progress Note Admit Date: 09/02/2017 Hospital Day 190 days Active Hospital Problems Diagnosis ??? S/P ORIF left acetabulum fracture 09/04/2017 Dr. Lance ??? Diabetes insipidus ??? Panhypopituitarism Resolved Hospital Problems Diagnosis Date Resolved ??? Hypernatremia 01/24/2018 ??? Acute urinary retention 01/24/2018 ??? Postoperative anemia due to acute blood loss 12/09/2017 PMH Active Non-Hospital Problems Diagnosis ??? Seizure disorder ??? Insomnia ??? Blind ??? CVA (cerebral vascular accident) ??? Urinary incontinence INTERVAL HISTORY/OVERNIGHT EVENTS: - unremarkable night - no other complaints - eating and drinking well - no other symptoms REVIEW OF SYSTEMS: No complaints, no pain, sleepign well. PHYSICAL EXAMINATION: Vitals Range last 24 hrs Temperature Temp: [36.5 ??C (97.7 ??F)-36.7 ??C (98.1 ??F)] Heart Rate Heart Rate: [86-93] Blood Pressure BP: (114-132)/(57-76) Respiratory Rate Resp: [16] SpO2 SpO2: [95 %-98 %] Intake/Output Summary (Last 24 hours) at 03/11/18 1214 Last data filed at 03/11/18 1000 Gross per 24 hour Intake 890 ml Output 1250 ml Net -360 ml Patient Vitals for the past 168 hrs: Weight 03/05/18 0912 98.4 kg (216 lb 14.4 oz) GENERAL: Awake, alert, NAD NEURO: Non focal Studies reviewed in eDH. Remarkable for the following: LABS: Last 3 wbc, hgb, hct plt Recent Labs 03/01/18 0835 01/16/18 0502 12/25/17 0550 WBC 5.4 5.0 4.9 HGB 11.9* 11.2* 11.9* HCT 36.7* 35.5* 36.4* PLATELET 272 298 313 Last 3 Lytes Recent Labs 03/10/18 1348 03/09/18 0846 03/08/18 0619 NA 138 133* 133* K 3.9 3.7 3.5 CL 100 98 97* CO2 24 22 21* BUN 11 9* 16 CREATININE 0.70* 0.68* 0.72* FSBG Trend: No results for input(s): POCGLU in the last 72 hours. MICROBIOLOGY: Recent Labs 02/28/18 1553 URINECULTURE 10,000-49,000 cfu/ml Citrobacter koseri (Citrobacter diversus)* No results for input(s): GRAMSTAIN, BFCX, LOWERRESPCX, TISSUECX in the last 720 hours. Recent Labs 02/28/18 1620 03/01/18 0835 BLOODCX No growth at 5 days. No growth at 5 days. ECG: Recent Labs 03/01/18 0920 DIAGLINE Normal sinus rhythm T wave abnormality, consider lateral ischemia Abnormal ECG When compared with ECG of 28-FEB-2018 11:26, No significant change was found Confirmed by MD Hernandez, Sacha ([id number]) on 03/01/2018 11:01:50 AM QTCCALC 446 VASCULAR: No results for input(s): VBTEXTRPT in the last 720 hours. IMAGING: Transthoracic Echocardiogram 03/02/2018: 1. The left ventricular chamber size is normal. Left ventricular wall thickness is normal. There isnormal global left ventricular systolic function. ??Ejection fraction is estimated to be 65%. Thereare no left ventricular segmental wall motion abnormalities. There are no left ventricular segmental wall motion abnormalities. Doppler assessment is consistent with normal left sided filling pressure. 2. The right ventricle is probably normal in size. Right ventricular global systolic function is probably normal. Pulmonary artery hypertension could not be assessed due to inadequate tricuspid regurgitation jet. 3. The atria are not well visualized. 4. There is no hemodynamically significant valvular disease. 5. See report below for remainder of findings. ?? Inpatient Medications: Scheduled ??? metoprolol succinate 75 mg Oral Daily ??? atorvastatin 40 mg Oral QPM ??? aspirin 81 mg Oral Daily ??? desmopressin 0.1 mg Oral QAM ??? desmopressin 0.15 mg Oral Nightly ??? levothyroxine 225 mcg Oral QAM ??? traZODone 50 mg Oral Nightly ??? acetaminophen 650 mg Oral TID ??? melatonin 9 mg Oral Nightly ??? QUEtiapine 250 mg Oral Nightly ??? calcium carbonate 500 mg Oral Nightly ??? hydrocortisone 10 mg Oral Daily at Noon ??? senna-docusate 2 tablet Oral BID ??? testosterone 5 g Transdermal Nightly ??? methyl salicylate-menthol Topical (Top) BID ??? cholecalciferol (Vitamin D3) 1,000 Units Oral Daily ??? hydrocortisone 20 mg Oral QAM ??? pantoprazole 40 mg Oral QAM AC ??? zonisamide 200 mg Oral Nightly Continuous infusions: PRN: ibuprofen, QUEtiapine, polyethylene glycol (MIRALAX)oral powder, simethicone, bisacodyl, naphazoline-pheniramine ASSESSMENT: 27M PMHx guillen hypotpituitarism, cognitive impairment, seizure disorder, who presented in September 02, 2017 with a seizure and associated left acetabular fracture in the context of osteopenia from chronic steroid use. He underwent operative repair on September 04. Hospital course is complicated by recurrent hypernatremia that would usually be very dependent on his fluid intake necessitating constantly being reminded to drink and a stable dose of desmopressin. Sodium a little low but stable. Will keep 2L fluid restriction and follow potassium Otherwise he has been afebrile for 96 hours. Urine and blood cultures with no significant growth. No further plans to workup at this time. ?? Cardiovascularly he remains stable and HR have improved. Given EKG changes and family history of premature cardiac disease, fasting lipids were checked which revealed triglycerides >2000. Echocardiogram WNL. Patient is allergic to fibrates - was placed on heart healthy diet. Tolerating well. He is currently awaiting placement; He remains to have 1:1 sitter at this time. No acute changes tomedical plan today. ?? PLAN: # mild hyponatremia - asymptomatic #Guillen-hypopituitarism #Diabetes insipidus #Hypothyroidism #Adrenal insufficiency #Hypogonadism - Continuing to encourage oral hydration with non-caffeine containing beverages - Continue present dosing of desmopressin, hydrocortisone, levothyroxine, testosterone - No indication for either GI or pneumocystis prophylaxis on basis of low total daily steroid dose (~7.5 mg prednisone equivalent) - 3L fluid restriction - today. Na 138 - follow sodium in AM # T-Wave Inversions # Hypertriglyceridemia - EKG stable - Continue ASA 81 mg PO daily - Continue atorvastatin 40 mg PO daily - Continue metoprolol succinate 75 mg PO daily - Continue healthy diet - Weekly weights ?? # Left acetabular fracture, status post operative repair 09/04/17 - Weight bearing as tolerated since 11/21 - Expert orthopedics recommendations appreciated, no follow up planned - Acetaminophen, ibuprofen PRNs - Intermittently cooperative with rehabilitation team, continue to encourage PT/OT as able ?? # Cognitive impairment with emotional disturbance - At baseline per caregiver and prior providers - Continue quetiapine scheduled and PRN - Continue trazodone, melatonin - Delirium precautions and non-pharmacologic interventions ?? # Seizure disorder - Zonisamide level low on admission, re-loaded per Neurology and home dose increased - Continue zonisamide 200 mg daily ?? # Urinary retention, now resolved - PRN bladder scan/straight catheterization intermittently ?? # Low bone mineral density - Calcium/Vitamin D supplementation - Initial injury occurred in context of seizure rather than pathologic fracture from low density - Endocrinology to consider bisphosphonate as oupatient ?? # Fractured left lower molar - Non-urgent extraction as outpatient ?? DVT Prophylaxis: Ambulatory patient Tubes/Drains: None IV Access: None Code Status: FULL Disposition: Awaiting placement Primary Care Provider: NAKIA Cifuentes [phone] Inpatient Certification Attestation: IPI Certification I certify that I am a D-H credentialed attending provider with admitting privileges and that the patient meets or has met medical necessity to require an inpatient IPI level of care meeting a minimumof two midnights or is on the [facility] inpatient only procedure list (status C) due to: the patient has met Inpatient IPI criteria and is awaiting rehabilitation or half-way facility placement withactive referrals in process DARIO GALLEGOS MD Team Pager(MD Coverage 27/01): [phone] 03/11/2018 * Dario Gallegos MD - 03/10/2018 5:49 PM EDT Hospital Medicine Attending Inpatient Daily Progress Note Admit Date: 09/02/2017 Hospital Day 189 days Active Hospital Problems Diagnosis ??? S/P ORIF left acetabulum fracture 09/04/2017 Dr. Lance ??? Diabetes insipidus ??? Panhypopituitarism Resolved Hospital Problems Diagnosis Date Resolved ??? Hypernatremia 01/24/2018 ??? Acute urinary retention 01/24/2018 ??? Postoperative anemia due to acute blood loss 12/09/2017 PMH Active Non-Hospital Problems Diagnosis ??? Seizure disorder ??? Insomnia ??? Blind ??? CVA (cerebral vascular accident) ??? Urinary incontinence INTERVAL HISTORY/OVERNIGHT EVENTS: - unremarkable night - no other complaints - eating and drinking well - no other symptoms REVIEW OF SYSTEMS: No complaints, no pain, sleepign well. PHYSICAL EXAMINATION: Vitals Range last 24 hrs Temperature Temp: [36.6 ??C (97.9 ??F)] Heart Rate Heart Rate: [74-77] Blood Pressure BP: (106-126)/(58-65) Respiratory Rate Resp: [16-17] SpO2 SpO2: [95 %] Intake/Output Summary (Last 24 hours) at 03/10/18 1749 Last data filed at 03/10/18 1713 Gross per 24 hour Intake 1450 ml Output 2625 ml Net -1175 ml Patient Vitals for the past 168 hrs: Weight 03/05/18 0912 98.4 kg (216 lb 14.4 oz) GENERAL: Awake, alert, NAD HEART: regular rate and rhythm, no murmur LUNGS: Clear sounds, poor effort EXT: no edema, no cyanosis NEURO: Non focal Studies reviewed in eDH. Remarkable for the following: LABS: Last 3 wbc, hgb, hct plt Recent Labs 03/01/18 0835 01/16/18 0502 12/25/17 0550 WBC 5.4 5.0 4.9 HGB 11.9* 11.2* 11.9* HCT 36.7* 35.5* 36.4* PLATELET 272 298 313 Last 3 Lytes Recent Labs 03/10/18 1348 03/09/18 0846 03/08/18 0619 NA 138 133* 133* K 3.9 3.7 3.5 CL 100 98 97* CO2 24 22 21* BUN 11 9* 16 CREATININE 0.70* 0.68* 0.72* FSBG Trend: No results for input(s): POCGLU in the last 72 hours. MICROBIOLOGY: Recent Labs 02/28/18 1553 URINECULTURE 10,000-49,000 cfu/ml Citrobacter koseri (Citrobacter diversus)* No results for input(s): GRAMSTAIN, BFCX, LOWERRESPCX, TISSUECX in the last 720 hours. Recent Labs 02/28/18 1620 03/01/18 0835 BLOODCX No growth at 5 days. No growth at 5 days. ECG: Recent Labs 03/01/18 0920 DIAGLINE Normal sinus rhythm T wave abnormality, consider lateral ischemia Abnormal ECG When compared with ECG of 28-FEB-2018 11:26, No significant change was found Confirmed by MD Ng Kevin ([id number]) on 03/01/2018 11:01:50 AM QTCCALC 446 VASCULAR: No results for input(s): VBTEXTRPT in the last 720 hours. IMAGING: Transthoracic Echocardiogram 03/02/2018: 1. The left ventricular chamber size is normal. Left ventricular wall thickness is normal. There isnormal global left ventricular systolic function. ??Ejection fraction is estimated to be 65%. Thereare no left ventricular segmental wall motion abnormalities. There are no left ventricular segmental wall motion abnormalities. Doppler assessment is consistent with normal left sided filling pressure. 2. The right ventricle is probably normal in size. Right ventricular global systolic function is probably normal. Pulmonary artery hypertension could not be assessed due to inadequate tricuspid regurgitation jet. 3. The atria are not well visualized. 4. There is no hemodynamically significant valvular disease. 5. See report below for remainder of findings. ?? Inpatient Medications: Scheduled ??? metoprolol succinate 75 mg Oral Daily ??? atorvastatin 40 mg Oral QPM ??? aspirin 81 mg Oral Daily ??? desmopressin 0.1 mg Oral QAM ??? desmopressin 0.15 mg Oral Nightly ??? levothyroxine 225 mcg Oral QAM ??? traZODone 50 mg Oral Nightly ??? acetaminophen 650 mg Oral TID ??? melatonin 9 mg Oral Nightly ??? QUEtiapine 250 mg Oral Nightly ??? calcium carbonate 500 mg Oral Nightly ??? hydrocortisone 10 mg Oral Daily at Noon ??? senna-docusate 2 tablet Oral BID ??? testosterone 5 g Transdermal Nightly ??? methyl salicylate-menthol Topical (Top) BID ??? cholecalciferol (Vitamin D3) 1,000 Units Oral Daily ??? hydrocortisone 20 mg Oral QAM ??? pantoprazole 40 mg Oral QAM AC ??? zonisamide 200 mg Oral Nightly Continuous infusions: PRN: ibuprofen, QUEtiapine, polyethylene glycol (MIRALAX)oral powder, simethicone, bisacodyl, naphazoline-pheniramine ASSESSMENT: 27M PMHx guillen hypotpituitarism, cognitive impairment, seizure disorder, who presented in September 02, 2017 with a seizure and associated left acetabular fracture in the context of osteopenia from chronic steroid use. He underwent operative repair on September 04. Hospital course is complicated by recurrent hypernatremia that would usually be very dependent on his fluid intake necessitating constantly being reminded to drink and a stable dose of desmopressin. Sodium a little low but stable. Will keep 2L fluid restriction and follow potassium Otherwise he has been afebrile for 96 hours. Urine and blood cultures with no significant growth. No further plans to workup at this time. ?? Cardiovascularly he remains stable and HR have improved. Given EKG changes and family history of premature cardiac disease, fasting lipids were checked which revealed triglycerides >2000. Echocardiogram WNL. Patient is allergic to fibrates - was placed on heart healthy diet. Tolerating well. He is currently awaiting placement; He remains to have 1:1 sitter at this time. No acute changes tomedical plan today. ?? PLAN: # mild hyponatremia - asymptomatic #Guillen-hypopituitarism #Diabetes insipidus #Hypothyroidism #Adrenal insufficiency #Hypogonadism - Continuing to encourage oral hydration with non-caffeine containing beverages - Continue present dosing of desmopressin, hydrocortisone, levothyroxine, testosterone - No indication for either GI or pneumocystis prophylaxis on basis of low total daily steroid dose (~7.5 mg prednisone equivalent) - 2L fluid restriction - follow sodium in AM # T-Wave Inversions # Hypertriglyceridemia - EKG stable - Continue ASA 81 mg PO daily - Continue atorvastatin 40 mg PO daily - Continue metoprolol succinate 75 mg PO daily - Continue healthy diet - Weekly weights ?? # Left acetabular fracture, status post operative repair 09/04/17 - Weight bearing as tolerated since 11/21 - Expert orthopedics recommendations appreciated, no follow up planned - Acetaminophen, ibuprofen PRNs - Intermittently cooperative with rehabilitation team, continue to encourage PT/OT as able ?? # Cognitive impairment with emotional disturbance - At baseline per caregiver and prior providers - Continue quetiapine scheduled and PRN - Continue trazodone, melatonin - Delirium precautions and non-pharmacologic interventions ?? # Seizure disorder - Zonisamide level low on admission, re-loaded per Neurology and home dose increased - Continue zonisamide 200 mg daily ?? # Urinary retention, now resolved - PRN bladder scan/straight catheterization intermittently ?? # Low bone mineral density - Calcium/Vitamin D supplementation - Initial injury occurred in context of seizure rather than pathologic fracture from low density - Endocrinology to consider bisphosphonate as oupatient ?? # Fractured left lower molar - Non-urgent extraction as outpatient ?? DVT Prophylaxis: Ambulatory patient Tubes/Drains: None IV Access: None Code Status: FULL Disposition: Awaiting placement Primary Care Provider: NAKIA Cifuentes [phone] Inpatient Certification Attestation: IPI Certification I certify that I am a D-H credentialed attending provider with admitting privileges and that the patient meets or has met medical necessity to require an inpatient IPI level of care meeting a minimumof two midnights or is on the CMS inpatient only procedure list (status C) due to: the patient has met Inpatient IPI criteria and is awaiting rehabilitation or half-way facility placement withactive referrals in process DARIO GALLEGOS MD Team Pager(MD Coverage 27/01): #[phone] 03/10/2018 * Mavis Solo, SENIOR PROFESSIONAL SERVICES CONSULTANT - 03/10/2018 3:27 PM EDT SENIOR PROFESSIONAL SERVICES CONSULTANT received a return call from Asael Valdez at [facility]. Per Asael, after his evaluation of [facility] on Friday, he feels that his needs can be met at their [place] bed. Asael informed this worker that his role is to determine if the pt.'s needs can be met safely, and then he informs Naheed Estrella whether or not the needs can be met safely. Naheed then decides to offer the bed, and Asael informs Lillian ([facility]'s [facility] worker) who then coordinates the transfer. Asael confirmed that he has left a voice message for Lillian informing her that Miguel Angel is appropriate for their [place] bed, and that the bed is available. He is awaiting a response from Lillian. JAMSHID Enamorado Pager: [phone] * Mavis Solo MSW - 03/10/2018 2:02 PM EDT SENIOR PROFESSIONAL SERVICES CONSULTANT left a voice message for Asael Courtney (cell: [phone]) at [facility] ([facility]) to check on bed availability. Awaiting a return call. JAMSHID Enamorado Pager: [phone] * Jazzmine Charlton RD - 03/10/2018 1:19 PM EDT Nutrition Progress Note Miguel Angel Mason is a 27 y.o. male Reason for intervention: Follow up Nutrition Recommendations: Recommend continuation of current diet order Consider daily multivitamin w/ minerals, Vit D and Calcium given supervisor long goods steroid use Sitters please assist patient with menu choices Provided sitter today with menu analysis Weigh patient twice weekly Patient Active Problem List Diagnosis Code ??? S/P ORIF left acetabulum fracture 09/04/2017 Dr. Lance S32.409A ??? 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 Seizure disorder G40.909 ??? Insomnia G47.00 ??? Blind H54.7 ??? CVA (cerebral vascular accident) I63.9 ??? Urinary incontinence R32 Active Orders Diet Daily Healthy Menu Choices/Cardiac diet ([facility]-Diet) 2000 mL FLUID Frequency: Effective Now Number of Occurrences: Until Specified Admit Weight: 86.64 kg Estimated body mass index is 31.12 kg/(m^2) as calculated from the following: Height as of this encounter: 177.8 cm (5' 10). Weight as of this encounter: 98.4 kg (216 lb 14.4 oz). [place] body weight: 73 kg (160 lb 15 oz) Adjusted ideal body weight: 83.2 kg (183 lb 5.1 oz) Today's medications: Tums, D3, Edna-Colace, others noted Lab Results Component Value Date NA 133 (L) 03/09/2018 K 3.7 03/09/2018 CL 98 03/09/2018 CO2 22 03/09/2018 BUN 9 (L) 03/09/2018 CREATININE 0.68 (L) 03/09/2018 GLUCOSE 97 03/09/2018 MAGNESIUM 0.92 11/15/2017 CALCIUM 9.0 03/09/2018 PHOS 3.2 09/08/2017 AST 23 09/04/2017 ALT 31 09/04/2017 ALKPHOS 75 09/04/2017 BILITOT 0.5 09/04/2017 BILIDIR 0.1 09/04/2017 TRIG 2210 03/01/2018 Last Bowel Movement: 03/08/18 Assessment: 27M PMHx guillen hypotpituitarism, cognitive impairment, seizure disorder, ??who presented in September 02, 2017 with a seizure and associated left acetabular fracture in the context of osteopenia from chronic steroid use. Spoke with patient's sitter today and provided her with menu analysis with portion size and calorie content of every food available. Discussed with SCREENER AND BLENDER attempting to encourage patient to eat lean proteins, low-fat dairy, complex carbohydrates, and avoid concentrated sweets and high-fat foods. Worked with SCREENER AND BLENDER to complete patient's breakfast lunch and dinner menus for tomorrow. Sitter reports that patient eats everything that he is and is not very picky. No further nutrition related questions or concerns at this time. ?? MARIYA Kat * Dina Ca - 03/09/2018 2:15 PM EDT [facility] Encounter Note Patient Name: Miguel Angel Mason : [id number] MR#: [id number] Admit Date: 09/02/2017 9:23 PM Hospital Day 188 days Narrative: Public Relations Consultant visited pt on routine rounds. Assessment: Pt was asleep in his bed, sitter was seated near the bedside. Intervention and Outcome: As pt was asleep, marine fuel dock attendant checked in with sitter on how he was doing. 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 Follow-up: Yes, on routine rounds Time in Direct Care: 5 mins Dina Ca 03/09/2018 * Gabriella Mahre MD - 03/09/2018 8:21 AM EDT Hospital Medicine Attending Inpatient Daily Progress Note Admit Date: 09/02/2017 Hospital Day 188 days Active Hospital Problems Diagnosis ??? S/P ORIF left acetabulum fracture 09/04/2017 Dr. Lance ??? Diabetes insipidus ??? Panhypopituitarism Resolved Hospital Problems Diagnosis Date Resolved ??? Hypernatremia 01/24/2018 ??? Acute urinary retention 01/24/2018 ??? Postoperative anemia due to acute blood loss 12/09/2017 PMH Active Non-Hospital Problems Diagnosis ??? Seizure disorder ??? Insomnia ??? Blind ??? CVA (cerebral vascular accident) ??? Urinary incontinence INTERVAL HISTORY/OVERNIGHT EVENTS: - unremarkable night - no other complaints - eating and drinking well - no other symptoms REVIEW OF SYSTEMS: Afebrile No chest pain No SOB No vomiting PHYSICAL EXAMINATION: Vitals Range last 24 hrs Temperature Temp: [36.4 ??C (97.5 ??F)-36.6 ??C (97.8 ??F)] Heart Rate Heart Rate: [85-93] Blood Pressure BP: (120-148)/(73-96) Respiratory Rate Resp: [19-20] SpO2 SpO2: [99 %] Intake/Output Summary (Last 24 hours) at 03/09/18 08 Last data filed at 03/08/18 1800 Gross per 24 hour Intake 2255 ml Output 250 ml Net 2005 ml Patient Vitals for the past 168 hrs: Weight 03/05/18 0912 98.4 kg (216 lb 14.4 oz) GENERAL: Awake, alert, NAD HEART: regular rate and rhythm, no murmur LUNGS: Clear sounds, poor effort ABDOMEN: soft, NT EXT: no edema, no cyanosis NEURO: Non focal Studies reviewed in eDH. Remarkable for the following: LABS: Last 3 wbc, hgb, hct plt Recent Labs 03/01/18 0835 01/16/18 0502 12/25/17 0550 WBC 5.4 5.0 4.9 HGB 11.9* 11.2* 11.9* HCT 36.7* 35.5* 36.4* PLATELET 272 298 313 Last 3 Lytes Recent Labs 03/08/18 0619 03/07/18 1723 03/05/18 1419 NA 133* 135 144 K 3.5 3.5 3.6 CL 97* 98 106 CO2 21* 22 24 BUN 16 15 14 CREATININE 0.72* 0.72* 0.81 FSBG Trend: No results for input(s): POCGLU in the last 72 hours. MICROBIOLOGY: Recent Labs 02/28/18 1553 URINECULTURE 10,000-49,000 cfu/ml Citrobacter koseri (Citrobacter diversus)* No results for input(s): GRAMSTAIN, BFCX, LOWERRESPCX, TISSUECX in the last 720 hours. Recent Labs 02/28/18 1620 03/01/18 0835 BLOODCX No growth at 5 days. No growth at 5 days. ECG: Recent Labs 03/01/18 0920 DIAGLINE Normal sinus rhythm T wave abnormality, consider lateral ischemia Abnormal ECG When compared with ECG of 28-FEB-2018 11:26, No significant change was found Confirmed by MD Hernandez, Sacha ([id number]) on 03/01/2018 11:01:50 AM QTCCALC 446 VASCULAR: No results for input(s): VBTEXTRPT in the last 720 hours. IMAGING: Transthoracic Echocardiogram 03/02/2018: 1. The left ventricular chamber size is normal. Left ventricular wall thickness is normal. There isnormal global left ventricular systolic function. ??Ejection fraction is estimated to be 65%. Thereare no left ventricular segmental wall motion abnormalities. There are no left ventricular segmental wall motion abnormalities. Doppler assessment is consistent with normal left sided filling pressure. 2. The right ventricle is probably normal in size. Right ventricular global systolic function is probably normal. Pulmonary artery hypertension could not be assessed due to inadequate tricuspid regurgitation jet. 3. The atria are not well visualized. 4. There is no hemodynamically significant valvular disease. 5. See report below for remainder of findings. ?? Inpatient Medications: Scheduled ??? metoprolol succinate 75 mg Oral Daily ??? atorvastatin 40 mg Oral QPM ??? aspirin 81 mg Oral Daily ??? desmopressin 0.1 mg Oral QAM ??? desmopressin 0.15 mg Oral Nightly ??? levothyroxine 225 mcg Oral QAM ??? traZODone 50 mg Oral Nightly ??? acetaminophen 650 mg Oral TID ??? melatonin 9 mg Oral Nightly ??? QUEtiapine 250 mg Oral Nightly ??? calcium carbonate 500 mg Oral Nightly ??? hydrocortisone 10 mg Oral Daily at Noon ??? senna-docusate 2 tablet Oral BID ??? testosterone 5 g Transdermal Nightly ??? methyl salicylate-menthol Topical (Top) BID ??? cholecalciferol (Vitamin D3) 1,000 Units Oral Daily ??? hydrocortisone 20 mg Oral QAM ??? pantoprazole 40 mg Oral QAM AC ??? zonisamide 200 mg Oral Nightly Continuous infusions: PRN: ibuprofen, QUEtiapine, polyethylene glycol (MIRALAX)oral powder, simethicone, bisacodyl, naphazoline-pheniramine ASSESSMENT: 27M PMHx guillen hypotpituitarism, cognitive impairment, seizure disorder, who presented in September 02, 2017 with a seizure and associated left acetabular fracture in the context of osteopenia from chronic steroid use. He underwent operative repair on September 04. Hospital course is complicated by recurrent hypernatremia that would usually be very dependent on his fluid intake necessitating constantly being reminded to drink and a stable dose of desmopressin. Sodium a little low but stable. Will keep 2L fluid restriction and follow potassium Otherwise he has been afebrile for 96 hours. Urine and blood cultures with no significant growth. No further plans to workup at this time. ?? Cardiovascularly he remains stable and HR have improved. Given EKG changes and family history of premature cardiac disease, fasting lipids were checked which revealed triglycerides >2000. Echocardiogram WNL. Patient is allergic to fibrates - was placed on heart healthy diet. Tolerating well. He is currently awaiting placement; He remains to have 1:1 sitter at this time. ?? PLAN: # mild hyponatremia - asymptomatic #Guillen-hypopituitarism #Diabetes insipidus #Hypothyroidism #Adrenal insufficiency #Hypogonadism - Continuing to encourage oral hydration with non-caffeine containing beverages - Continue present dosing of desmopressin, hydrocortisone, levothyroxine, testosterone - No indication for either GI or pneumocystis prophylaxis on basis of low total daily steroid dose (~7.5 mg prednisone equivalent) - 2L fluid restriction today - follow sodium in AM # SIRS, resolved - Workup unremarkable - No role for antibiotics at this time ?? # T-Wave Inversions # Hypertriglyceridemia - EKG stable - Continue ASA 81 mg PO daily - Continue atorvastatin 40 mg PO daily - Continue metoprolol succinate 75 mg PO daily - Continue healthy diet - Weekly weights ?? # Left acetabular fracture, status post operative repair 09/04/17 - Weight bearing as tolerated since 11/21 - Expert orthopedics recommendations appreciated, no follow up planned - Acetaminophen, ibuprofen PRNs - Intermittently cooperative with rehabilitation team, continue to encourage PT/OT as able ?? # Cognitive impairment with emotional disturbance - At baseline per caregiver and prior providers - Continue quetiapine scheduled and PRN - Continue trazodone, melatonin - Delirium precautions and non-pharmacologic interventions ?? # Seizure disorder - Zonisamide level low on admission, re-loaded per Neurology and home dose increased - Continue zonisamide 200 mg daily ?? # Urinary retention, now resolved - PRN bladder scan/straight catheterization intermittently ?? # Low bone mineral density - Calcium/Vitamin D supplementation - Initial injury occurred in context of seizure rather than pathologic fracture from low density - Endocrinology to consider bisphosphonate as oupatient ?? # Fractured left lower molar - Non-urgent extraction as outpatient ?? DVT Prophylaxis: Ambulatory patient Tubes/Drains: None IV Access: None Code Status: FULL Disposition: Awaiting placement Primary Care Provider: NAKIA Cifuentes [phone] Inpatient Certification Attestation: IPI Certification I certify that I am a D-H credentialed attending provider with admitting privileges and that the patient meets or has met medical necessity to require an inpatient IPI level of care meeting a minimumof two midnights or is on the [facility] inpatient only procedure list (status C) due to: the patient has met Inpatient IPI criteria and is awaiting rehabilitation or half-way facility placement withactive referrals in process Gabriella Maher MD Team Pager(MD Coverage 27/01): [phone] 03/09/2018 * Gabriella Maher MD - 03/08/2018 8:01 AM EDT Hospital Medicine Attending Inpatient Daily Progress Note Admit Date: 09/02/2017 Hospital Day 187 days Active Hospital Problems Diagnosis ??? S/P ORIF left acetabulum fracture 09/04/2017 Dr. Lance ??? Diabetes insipidus ??? Panhypopituitarism Resolved Hospital Problems Diagnosis Date Resolved ??? Hypernatremia 01/24/2018 ??? Acute urinary retention 01/24/2018 ??? Postoperative anemia due to acute blood loss 12/09/2017 [facility] Active Non-Hospital Problems Diagnosis ??? Seizure disorder ??? Insomnia ??? Blind ??? CVA (cerebral vascular accident) ??? Urinary incontinence INTERVAL HISTORY/OVERNIGHT EVENTS: - did not sleep last night - a little agitated today but redirectable - responsive, Denies any chest pain - not short of breath REVIEW OF SYSTEMS: No chest pain Afebrile Not short of breath Eating and drinking well No vomiting PHYSICAL EXAMINATION: Vitals Range last 24 hrs Temperature Temp: [36.5 ??C (97.7 ??F)-36.7 ??C (98.1 ??F)] Heart Rate Heart Rate: [86-105] Blood Pressure BP: (103-123)/(53-72) Respiratory Rate Resp: [20-22] SpO2 SpO2: [96 %-99 %] Intake/Output Summary (Last 24 hours) at 03/08/18 0801 Last data filed at 03/08/18 0644 Gross per 24 hour Intake 3070 ml Output 1125 ml Net 1945 ml Patient Vitals for the past 168 hrs: Weight 03/05/18 0912 98.4 kg (216 lb 14.4 oz) GENERAL: Awake, a little anxious, no acute distress HEART: regular rate and rhythm, no murmur LUNGS: Agitated - pushing stethoscope away ABDOMEN: soft, NT EXT: no edema, no cyanosis NEURO: Randomly moving extremities Studies reviewed in eDH. Remarkable for the following: LABS: Last 3 wbc, hgb, hct plt Recent Labs 03/01/18 0835 01/16/18 0502 12/25/17 0550 WBC 5.4 5.0 4.9 HGB 11.9* 11.2* 11.9* HCT 36.7* 35.5* 36.4* PLATELET 272 298 313 Last 3 Lytes Recent Labs 03/08/18 0619 03/07/18 1723 03/05/18 1419 NA 133* 135 144 K 3.5 3.5 3.6 CL 97* 98 106 CO2 21* 22 24 BUN 16 15 14 CREATININE 0.72* 0.72* 0.81 FSBG Trend: No results for input(s): POCGLU in the last 72 hours. MICROBIOLOGY: Recent Labs 02/28/18 1553 URINECULTURE 10,000-49,000 cfu/ml Citrobacter koseri (Citrobacter diversus)* No results for input(s): GRAMSTAIN, BFCX, LOWERRESPCX, TISSUECX in the last 720 hours. Recent Labs 02/28/18 1620 03/01/18 0835 BLOODCX No growth at 5 days. No growth at 5 days. ECG: Recent Labs 03/01/18 0920 DIAGLINE Normal sinus rhythm T wave abnormality, consider lateral ischemia Abnormal ECG When compared with ECG of 28-FEB-2018 11:26, No significant change was found Confirmed by MD Hernandez, Sacha ([id number]) on 03/01/2018 11:01:50 AM QTCCALC 446 VASCULAR: No results for input(s): VBTEXTRPT in the last 720 hours. IMAGING: Transthoracic Echocardiogram 03/02/2018: 1. The left ventricular chamber size is normal. Left ventricular wall thickness is normal. There isnormal global left ventricular systolic function. ??Ejection fraction is estimated to be 65%. Thereare no left ventricular segmental wall motion abnormalities. There are no left ventricular segmental wall motion abnormalities. Doppler assessment is consistent with normal left sided filling pressure. 2. The right ventricle is probably normal in size. Right ventricular global systolic function is probably normal. Pulmonary artery hypertension could not be assessed due to inadequate tricuspid regurgitation jet. 3. The atria are not well visualized. 4. There is no hemodynamically significant valvular disease. 5. See report below for remainder of findings. ?? Inpatient Medications: Scheduled ??? metoprolol succinate 75 mg Oral Daily ??? atorvastatin 40 mg Oral QPM ??? aspirin 81 mg Oral Daily ??? desmopressin 0.1 mg Oral QAM ??? desmopressin 0.15 mg Oral Nightly ??? levothyroxine 225 mcg Oral QAM ??? traZODone 50 mg Oral Nightly ??? acetaminophen 650 mg Oral TID ??? melatonin 9 mg Oral Nightly ??? QUEtiapine 250 mg Oral Nightly ??? calcium carbonate 500 mg Oral Nightly ??? hydrocortisone 10 mg Oral Daily at Noon ??? senna-docusate 2 tablet Oral BID ??? testosterone 5 g Transdermal Nightly ??? methyl salicylate-menthol Topical (Top) BID ??? cholecalciferol (Vitamin D3) 1,000 Units Oral Daily ??? hydrocortisone 20 mg Oral QAM ??? pantoprazole 40 mg Oral QAM AC ??? zonisamide 200 mg Oral Nightly Continuous infusions: PRN: ibuprofen, QUEtiapine, polyethylene glycol (MIRALAX)oral powder, simethicone, bisacodyl, naphazoline-pheniramine ASSESSMENT: 27M PMHx guillen hypotpituitarism, cognitive impairment, seizure disorder, who presented in September 02, 2017 with a seizure and associated left acetabular fracture in the context of osteopenia from chronic steroid use. He underwent operative repair on September 04. Hospital course is complicated by recurrent hypernatremia that would usually be very dependent on his fluid intake necessitating constantly being reminded to drink and a stable dose of desmopressin. Eating and drinking well at this time. Wasa little agitated today because he did not sleep well last night. ?? Otherwise he has been afebrile for 72 hours. Urine and blood cultures with no significant growth. No further plans to workup at this time. ?? Cardiovascularly he remains stable and HR have improved. Given EKG changes and family history of premature cardiac disease, fasting lipids were checked which revealed triglycerides >2000. Echocardiogram WNL. Unfortunately patient is allergic to fibrates (sister could not recall allergy specifically). Since he has gained >40 lbs since hospitalization, I have modified his diet to a heart healthy diet. In the interim will continue medical optimization as below. ?? PLAN: #drowsiness, possible Hypernatremia #Guillen-hypopituitarism #Diabetes insipidus #Hypothyroidism #Adrenal insufficiency #Hypogonadism - Continuing to encourage oral hydration with non-caffeine containing beverages - Continue present dosing of desmopressin, hydrocortisone, levothyroxine, testosterone - No indication for either GI or pneumocystis prophylaxis on basis of low total daily steroid dose (~7.5 mg prednisone equivalent) - recheck REGISTERED NURSING PROFESSOR today # SIRS, resolved - Workup unremarkable - No role for antibiotics at this time ?? # T-Wave Inversions # Hypertriglyceridemia - EKG stable - Continue ASA 81 mg PO daily - Continue atorvastatin 40 mg PO daily - Continue metoprolol succinate 75 mg PO daily - Continue healthy diet - Weekly weights ?? # Left acetabular fracture, status post operative repair 09/04/17 - Weight bearing as tolerated since 11/21 - Expert orthopedics recommendations appreciated, no follow up planned - Acetaminophen, ibuprofen PRNs - Intermittently cooperative with rehabilitation team, continue to encourage PT/OT as able ?? # Cognitive impairment with emotional disturbance - At baseline per caregiver and prior providers - Continue quetiapine scheduled and PRN - Continue trazodone, melatonin - Delirium precautions and non-pharmacologic interventions ?? # Seizure disorder - Zonisamide level low on admission, re-loaded per Neurology and home dose increased - Continue zonisamide 200 mg daily ?? # Urinary retention, now resolved - PRN bladder scan/straight catheterization intermittently ?? # Low bone mineral density - Calcium/Vitamin D supplementation - Initial injury occurred in context of seizure rather than pathologic fracture from low density - Endocrinology to consider bisphosphonate as oupatient ?? # Fractured left lower molar - Non-urgent extraction as outpatient ?? DVT Prophylaxis: Ambulatory patient Tubes/Drains: None IV Access: None Code Status: FULL Disposition: Awaiting placement Primary Care Provider: NAKIA Cifuentes [phone] Inpatient Certification Attestation: IPI Certification I certify that I am a D-H credentialed attending provider with admitting privileges and that the patient meets or has met medical necessity to require an inpatient IPI level of care meeting a minimumof two midnights or is on the [facility] inpatient only procedure list (status C) due to: the patient has met Inpatient IPI criteria and is awaiting rehabilitation or half-way facility placement withactive referrals in process Gabriella Maher MD Team Pager(MD Coverage 27/01): #[phone] 03/08/2018 * Gabriella Maher MD - 03/07/2018 4:10 PM EDT Hospital Medicine Attending Inpatient Daily Progress Note Admit Date: 09/02/2017 Hospital Day 185 days Active Hospital Problems Diagnosis ??? S/P ORIF left acetabulum fracture 09/04/2017 Dr. Lance ??? Diabetes insipidus ??? Panhypopituitarism Resolved Hospital Problems Diagnosis Date Resolved ??? Hypernatremia 01/24/2018 ??? Acute urinary retention 01/24/2018 ??? Postoperative anemia due to acute blood loss 12/09/2017 PMH Active Non-Hospital Problems Diagnosis ??? Seizure disorder ??? Insomnia ??? Blind ??? CVA (cerebral vascular accident) ??? Urinary incontinence INTERVAL HISTORY/OVERNIGHT EVENTS: - required seroquel for sleep last night - very sleepy this morning - able to eat breakfast but went back to sleep REVIEW OF SYSTEMS: Could not be obtained PHYSICAL EXAMINATION: Vitals Range last 24 hrs Temperature Temp: [36.4 ??C (97.5 ??F)-36.7 ??C (98.1 ??F)] Heart Rate Heart Rate: [90-111] Blood Pressure BP: (131-149)/(81-95) Respiratory Rate Resp: [21] SpO2 SpO2: [97 %-99 %] Intake/Output Summary (Last 24 hours) at 03/06/18 1610 Last data filed at 03/06/18 1300 Gross per 24 hour Intake 3539 ml Output 1625 ml Net 1914 ml Patient Vitals for the past 168 hrs: Weight 03/05/18 0912 98.4 kg (216 lb 14.4 oz) 02/27/18 1914 99.2 kg (218 lb 12.8 oz) GENERAL: Drowsy, wakes to agitation HEART: regular rate and rhythm, no murmur LUNGS: Clear, decreased respiratory effort ABDOMEN: soft, NT EXT: no edema, no cyanosis NEURO: Randomly moving extremities Studies reviewed in eDH. Remarkable for the following: LABS: Last 3 wbc, hgb, hct plt Recent Labs 03/01/18 0835 01/16/18 0502 12/25/17 0550 WBC 5.4 5.0 4.9 HGB 11.9* 11.2* 11.9* HCT 36.7* 35.5* 36.4* PLATELET 272 298 313 Last 3 Lytes Recent Labs 03/05/18 1419 03/04/18 0753 03/03/18 1247 NA 144 148* 150* K 3.6 3.5 4.3 CL 106 109* 114* CO2 24 25 22 BUN 14 15 14 CREATININE 0.81 0.75* 0.81 FSBG Trend: No results for input(s): POCGLU in the last 72 hours. MICROBIOLOGY: Recent Labs 02/28/18 1553 URINECULTURE 10,000-49,000 cfu/ml Citrobacter koseri (Citrobacter diversus)* No results for input(s): GRAMSTAIN, BFCX, LOWERRESPCX, TISSUECX in the last 720 hours. Recent Labs 02/28/18 1620 03/01/18 0835 BLOODCX No growth at 5 days. No growth at 5 days. ECG: Recent Labs 03/01/18 0920 DIAGLINE Normal sinus rhythm T wave abnormality, consider lateral ischemia Abnormal ECG When compared with ECG of 28-FEB-2018 11:26, No significant change was found Confirmed by MD Hernandez, Sacha ([id number]) on 03/01/2018 11:01:50 AM QTCCALC 446 VASCULAR: No results for input(s): VBTEXTRPT in the last 720 hours. IMAGING: Transthoracic Echocardiogram 03/02/2018: 1. The left ventricular chamber size is normal. Left ventricular wall thickness is normal. There isnormal global left ventricular systolic function. ??Ejection fraction is estimated to be 65%. Thereare no left ventricular segmental wall motion abnormalities. There are no left ventricular segmental wall motion abnormalities. Doppler assessment is consistent with normal left sided filling pressure. 2. The right ventricle is probably normal in size. Right ventricular global systolic function is probably normal. Pulmonary artery hypertension could not be assessed due to inadequate tricuspid regurgitation jet. 3. The atria are not well visualized. 4. There is no hemodynamically significant valvular disease. 5. See report below for remainder of findings. ?? Inpatient Medications: Scheduled ??? metoprolol succinate 75 mg Oral Daily ??? atorvastatin 40 mg Oral QPM ??? aspirin 81 mg Oral Daily ??? desmopressin 0.1 mg Oral QAM ??? desmopressin 0.15 mg Oral Nightly ??? levothyroxine 225 mcg Oral QAM ??? traZODone 50 mg Oral Nightly ??? acetaminophen 650 mg Oral TID ??? melatonin 9 mg Oral Nightly ??? QUEtiapine 250 mg Oral Nightly ??? calcium carbonate 500 mg Oral Nightly ??? hydrocortisone 10 mg Oral Daily at Noon ??? senna-docusate 2 tablet Oral BID ??? testosterone 5 g Transdermal Nightly ??? methyl salicylate-menthol Topical (Top) BID ??? cholecalciferol (Vitamin D3) 1,000 Units Oral Daily ??? hydrocortisone 20 mg Oral QAM ??? pantoprazole 40 mg Oral QAM AC ??? zonisamide 200 mg Oral Nightly Continuous infusions: PRN: ibuprofen, QUEtiapine, polyethylene glycol (MIRALAX)oral powder, simethicone, bisacodyl, naphazoline-pheniramine ASSESSMENT: 27M PMHx guillen hypotpituitarism, cognitive impairment, seizure disorder, who presented in September 02, 2017 with a seizure and associated left acetabular fracture in the context of osteopenia from chronic steroid use. He underwent operative repair on September 04. Hospital course is complicated by recurrent hypernatremia that would usually be very dependent on his fluid intake necessitating constantly being reminded to drink and a stable dose of desmopressin. His sodium has not been checked the past couple of days but may need recheck today in the setting of increased drowsiness. ?? Otherwise he has been afebrile for 72 hours. Urine and blood cultures with no significant growth. No further plans to workup at this time. ?? Cardiovascularly he remains stable and HR have improved. Given EKG changes and family history of premature cardiac disease, fasting lipids were checked which revealed triglycerides >2000. Echocardiogram WNL. Unfortunately patient is allergic to fibrates (sister could not recall allergy specifically). Since he has gained >40 lbs since hospitalization, I have modified his diet to a heart healthy diet. In the interim will continue medical optimization as below. Will monitor for cardiac symptoms. ?? PLAN: #drowsiness, possible Hypernatremia #Guillen-hypopituitarism #Diabetes insipidus #Hypothyroidism #Adrenal insufficiency #Hypogonadism - Continuing to encourage oral hydration with non-caffeine containing beverages - Continue present dosing of desmopressin, hydrocortisone, levothyroxine, testosterone - No indication for either GI or pneumocystis prophylaxis on basis of low total daily steroid dose (~7.5 mg prednisone equivalent) - recheck REGISTERED NURSING PROFESSOR today # SIRS, resolved - Workup unremarkable - No role for antibiotics at this time ?? # T-Wave Inversions # Hypertriglyceridemia - EKG stable - Continue ASA 81 mg PO daily - Continue atorvastatin 40 mg PO daily - Continue metoprolol succinate 75 mg PO daily - Continue healthy diet - Weekly weights ?? # Left acetabular fracture, status post operative repair 09/04/17 - Weight bearing as tolerated since 11/21 - Expert orthopedics recommendations appreciated, no follow up planned - Acetaminophen, ibuprofen PRNs - Intermittently cooperative with rehabilitation team, continue to encourage PT/OT as able ?? # Cognitive impairment with emotional disturbance - At baseline per caregiver and prior providers - Continue quetiapine scheduled and PRN - Continue trazodone, melatonin - Delirium precautions and non-pharmacologic interventions ?? # Seizure disorder - Zonisamide level low on admission, re-loaded per Neurology and home dose increased - Continue zonisamide 200 mg daily ?? # Urinary retention, now resolved - PRN bladder scan/straight catheterization intermittently ?? # Low bone mineral density - Calcium/Vitamin D supplementation - Initial injury occurred in context of seizure rather than pathologic fracture from low density - Endocrinology to consider bisphosphonate as oupatient ?? # Fractured left lower molar - Non-urgent extraction as outpatient ?? DVT Prophylaxis: Ambulatory patient Tubes/Drains: None IV Access: None Code Status: FULL Disposition: Awaiting placement Primary Care Provider: NAKIA Cifuentes [phone] Inpatient Certification Attestation: IPI Certification I certify that I am a D-H credentialed attending provider with admitting privileges and that the patient meets or has met medical necessity to require an inpatient IPI level of care meeting a minimumof two midnights or is on the [facility] inpatient only procedure list (status C) due to: the patient has met Inpatient IPI criteria and is awaiting rehabilitation or half-way facility placement withactive referrals in process Gabriella Maher MD Team Pager(MD Coverage 27/01): [phone] 03/07/2018 * Echo Hanson RN - 03/06/2018 5:18 PM EDT Continuing to support complex discharge planning on behalf of care management. For additional care management dept discharge planning efforts, see notes. Recvd information that patient may have [facility] (vs [facility]) placement setup (equipped home and care team) and that patient's DS budget is under review by [facility] leadership. Called [facility] and left , received call back from Carissa Posada who confirmed that a plan has been proposed, including a lease agr eement and budget and it is awaiting leadership approval. She agrees to have [facility] leadership return call to share further details about lack of signoff. Call placed to [place] [employer], gave update re: above to high riggeraustin Rivas who is following hissituation. He plans to call pt's guardian (sister Bettina) to obtain approval to continue to work ontheir behalf, will call with updates. Call placed to [facility] Director for Disability Services Georgia Jones to update with above information. She, too, will continue to advocate for [facility] to signoff on patient's budgetand clear the path to his [facility] placement. HEATHER Clarke updated. Will continue to follow and advocate on patient's behalf. Will return 03/10. Echo Hanson, RN, MSN, ACM Dining Room Manager - Care Management [phone] / [phone] pager [phone] * Tricia Gerber RN - 03/06/2018 4:56 PM EDT The patient/insurance sales representative has been provided a list of Home Health Agencies/DME vendors which servetheir preferred geographic area. A letter describing our affiliations was reviewed with them and they were educated about their right to choose where referrals are placed. Patient requests referral to [facility] for wheelchair and walker. Expected date of discharge: 03-10-18. Referral routed to the Audit Director for matching with agency/vendor and to provide any required information. Tricia Gerber RN Case Homemaker Companion of Care Management [email or web address] Pager: [phone] * Tricia Gerber RN - 03/06/2018 4:27 PM EDT Lillian Holcomb from [facility] Human Services and another insurance sales representative came to visit with Miguel Angel today and meet with [facility]. [facility] insurance sales representative Asael Valdez [phone] visited with patient, [facility] staff, and [facility] staff today. Charge nurse reviewed Miguel Angel's case/needs. [facility] to be in contact with [facility] on Saturday 03/10 regarding their tentative plan to accept. He was given pager number for attending should their psychiatrist have any questions regarding medications. We determined that patient will need wheelchair and walker for discharge. Land Agent will place order with [facility] for these items. Miguel Angel may also need hospital bed or rails added to bed at [facility]. Lashell discuss further with management at [facility] as bed rails may be considered a restraint and not allowed by the [facility]. Lillian reports that she did speak with Bettina Mason (Guardian/sister), she is in agreement with plan and would like to be present at time of transfer. Case management will continue to follow and assist with discharge planning needs. Tricia Gerber RN Case Homemaker Companion of Care Management Pager: [phone] * Reba Linton MD - 03/06/2018 1:59 PM EDT [facility] Medicine Attending Daily Progress Note Patient Description: 27 y.o. male admitted to the hospital medicine service for a left acetabular fracture sustained in the context of a seizure with low serum level of anti-seizure medication. 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 Active Hospital Problems Diagnosis ??? S/P ORIF left acetabulum fracture 09/04/2017 Dr. Lance ??? Diabetes insipidus ??? Panhypopituitarism Resolved Hospital Problems Diagnosis Date Resolved ??? Hypernatremia 01/24/2018 ??? Acute urinary retention 01/24/2018 ??? Postoperative anemia due to acute blood loss 12/09/2017 Active Non-Hospital Problems Diagnosis ??? Seizure disorder ??? Insomnia ??? Blind ??? CVA (cerebral vascular accident) ??? Urinary incontinence Interval Events: No acute events overnight. Could not complete ROS given baseline mentation. Physical Exam Vital Signs Temp: 36.4 ??C (97.5 ??F) Temp src: Oral Heart Rate: 90 Heart Rate Source: Monitor Resp: 21 BP: 136/83 MAP (NBP): 92 mmHg BP Method: Automatic BP Location: Left arm Patient Position: Lying SpO2: 99 % O2 Flow Rate (L/min): 0 L/min O2 Device: None (Room air) General: NAD and sleeping comfortably HEENT: Moist mucous membranes Neck: No jugular venous distention Cor: Normal rate, regular rhythm, s1/s2 present Lungs: Clear to auscultation anterior medellin Abdomen: Soft, non-tender, non-distended; bowel sounds (+) Extremities: warm, no LE edema Skin: no rash; warm, dry Neuro: Did not assess as patient was sleeping Fluid Balance: Intake/Output Summary (Last 24 hours) at 03/06/18 1359 Last data filed at 03/06/18 1300 Gross per 24 hour Intake 4249 ml Output 2125 ml Net 2124 ml Last Weight: 98.4 kg (216 lb 14.4 oz) Admission Weight: 86.64 kg Pertinent Labs Recent Labs 03/05/18 1419 03/04/18 0753 08/28/18 1247 NA 144 148* 150* K 3.6 3.5 4.3 CL 106 109* 114* CO2 24 25 22 BUN 14 15 14 CREATININE 0.81 0.75* 0.81 Recent Labs 03/05/18 1419 03/04/18 0753 03/03/18 1247 CALCIUM 9.1 9.8 9.6 Microbiology None recent Radiology & Studies in Last 24 Hours Transthoracic Echocardiogram 03/02/2018: 1. The left ventricular chamber size is normal. Left ventricular wall thickness is normal. There isnormal global left ventricular systolic function. Ejection fraction is estimated to be 65%. There are no left ventricular segmental wall motion abnormalities. There are no left ventricular segmental wall motion abnormalities. Doppler assessment is consistent with normal left sided filling pressure. 2. The right ventricle is probably normal in size. Right ventricular global systolic function is probably normal. Pulmonary artery hypertension could not be assessed due to inadequate tricuspid regurgitation jet. 3. The atria are not well visualized. 4. There is no hemodynamically significant valvular disease. 5. See report below for remainder of findings. Assessment and Plan 27 year old male with complex past medical history including guillen hypotpituitarism, cognitive impairment, seizure disorder, who presented in August with a seizure and associated left acetabular fracture in the context of osteopenia from chronic steroid use, status post operative repair September 04. His subsequent hospital course has been notable for recurrent hypernatremia - now on a stable dose of desmopressin. He has had some worsening hypernatremia over the past several days however that hasimproved with increased PO intake. Desmopressin dose remains the same. Otherwise he has remained afebrile for 48 hours. Urine and blood cultures with no significant growth. No further plans to workup at this time. Cardiovascularly he remains stable and HR have improved. Given EKG changes and family history of premature cardiac disease, fasting lipids were checked which revealed triglycerides >2000. Echocardiogram WNL. Unfortunately patient is allergic to fibrates (sister could not recall allergy specifically). Since he has gained >40 lbs since hospitalization, I have modified his diet to a heart healthy diet. In the interim will continue medical optimization as below. Plan: # Fever # Tachycardia - Resolved - Workup unremarkable - No role for antibiotics at this time - No further workup planned # T-Wave Inversions # Hypertriglyceridemia - EKG stable - Continue ASA 81 mg PO daily - Continue atorvastatin 40 mg PO daily - Continue metoprolol succinate 75 mg PO daily - Continue healthy diet - Weekly weights #Hypernatremia #Guillen-hypopituitarism #Diabetes insipidus #Hypothyroidism #Adrenal insufficiency #Hypogonadism - Continuing to encourage oral hydration with non-caffeine containing beverages - Continue present dosing of desmopressin, hydrocortisone, levothyroxine, testosterone - No indication for either GI or pneumocystis prophylaxis on basis of low total daily steroid dose (~7.5 mg prednisone equivalent) # Left acetabular fracture, status post operative repair 09/04/17 - Weight bearing as tolerated since 11/21 - Expert orthopedics recommendations appreciated, no follow up planned - Acetaminophen, ibuprofen PRNs - Intermittently cooperative with rehabilitation team, continue to encourage PT/OT as able # Cognitive impairment with emotional disturbance - At baseline per caregiver and prior providers - Continue quetiapine scheduled and PRN - Continue trazodone, melatonin - Delirium precautions and non-pharmacologic interventions # Seizure disorder - Zonisamide level low on admission, re-loaded per Neurology and home dose increased - Continue zonisamide 200 mg daily # Urinary retention - Resolved # Low bone mineral density - Calcium/Vitamin D supplementation - Initial injury occurred in context of seizure rather than pathologic fracture from low density - Endocrinology to consider bisphosphonate as oupatient # Fractured left lower molar - Non-urgent extraction as outpatient Diet [facility] Healthy Diet Discharge planning Awaiting placement, medically ready for discharge. CM working hard to secure placement Lines/Access None Morse catheter None DVT Prophylaxis None, patient is ambulatory Code status FULL Team Pager [phone] PCP NAKIA Cifuentes Attestation IPI Certification I certify that I am a D-H credentialed attending provider with admitting privileges and that the patient meets or has met medical necessity to require an inpatient IPI level of care meeting a minimumof two midnights or is on the CMS inpatient only procedure list (status C) due to: the patient has met Inpatient IPI criteria and is awaiting rehabilitation or half-way facility placement withactive referrals in process REBA LINTON MD * Tricia Gerber RN - 03/05/2018 5:36 PM EDT Called and spoke with Bettina Barrup (Guardian/sister) [phone] (W). Reviewed details of meeting held today and plan for evaluation by [facility]. She reports that she would have liked to attend meeting too but did not know it was taking place. Informed her that messages have been left for her. She acknowledged getting the messages but reports she has been working double shifts and unable to return any calls. She planned on returning calls tomorrow when she only worked from 8-5. States that she did get a message from whom she believes was Lillian from [facility]. States Lillian left [employer] phone number and she wanted to call and talk to Lillian to learn more about [facility]. Miguel Angel gettingout is great news, but also very nerve wrecking. She agreed to call scientific writer back after talking with Lillian. Case management will continue to follow. Tricia Gerber RN Case Homemaker Companion of Care Management [email or web address] Pager: [phone] * Mavis Solo MSW - 03/05/2018 2:55 PM EDT Care Conference call held with Hilton Barker- shirring machine operator automatic, Tricia- Newscast Producer, Echo Canas Community Health Worker, Dr. Goldstein, this worker, and multiple staff at [facility], and Naheed Estrella from [facility] to discuss Miguel Angel's medical status, behavioral tendencies, and needs for [facility] placement. All questions from participating parties appeared to have been answered. Per Carissa, Asael Valdez from [facility] will be coming to to see Miguel Angel tomorrow at 1100. Tricia provided Carissa with her contact information for Asael to reach out when he arrives. This worker faxedthe requested clinicals (MD Notes, RN notes, and med list) to Carissa per her request. If Miguel Angel is appropriate, there may be a bed available as early as Friday. Care Management will continue to follow, and assist as appropriate. JAMSHID Enamorado Pager: [phone] * Reba Linton MD - 03/05/2018 8:53 AM EDT [facility] Medicine Attending Daily Progress Note Patient Description: 27 y.o. male admitted to the hospital medicine service for a left acetabular fracture sustained in the context of a seizure with low serum level of anti-seizure medication. 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 Active Hospital Problems Diagnosis ??? S/P ORIF left acetabulum fracture 09/04/2017 Dr. Lance ??? Diabetes insipidus ??? Panhypopituitarism Resolved Hospital Problems Diagnosis Date Resolved ??? Hypernatremia 01/24/2018 ??? Acute urinary retention 01/24/2018 ??? Postoperative anemia due to acute blood loss 12/09/2017 Active Non-Hospital Problems Diagnosis ??? Seizure disorder ??? Insomnia ??? Blind ??? CVA (cerebral vascular accident) ??? Urinary incontinence Interval Events: No acute events overnight. Could not complete ROS given baseline mentation. Physical Exam Vital Signs Temp: 37 ??C (98.6 ??F) Temp src: Oral Heart Rate: 72 Heart Rate Source: SaO2 Resp: 15 BP: 116/81 MAP (NBP): 106 mmHg BP Method: Auscultated BP Location: Left arm Patient Position: Lying SpO2: 97 % O2 Flow Rate (L/min): 0 L/min O2 Device: None (Room air) General: NAD and sleeping comfortably HEENT: Moist mucous membranes Neck: No jugular venous distention Cor: Normal rate, regular rhythm, s1/s2 present Lungs: Clear to auscultation anterior medellin Abdomen: Soft, non-tender, non-distended; bowel sounds (+) Extremities: warm, no LE edema Skin: no rash; warm, dry Neuro: Did not assess as patient was sleeping Fluid Balance: Intake/Output Summary (Last 24 hours) at 03/05/18 0853 Last data filed at 03/05/18 0630 Gross per 24 hour Intake 2780 ml Output 2100 ml Net 680 ml Last Weight: 99.2 kg (218 lb 12.8 oz) Admission Weight: 86.64 kg Pertinent Labs Recent Labs 03/04/18 0753 03/03/18 1247 03/02/18 0626 NA 148* 150* 145 K 3.5 4.3 3.5 CL 109* 114* 109* CO2 25 22 23 BUN 15 14 17 CREATININE 0.75* 0.81 0.64* Recent Labs 03/04/18 0753 03/03/18 1247 03/02/18 0626 CALCIUM 9.8 9.6 9.5 Microbiology None recent Radiology & Studies in Last 24 Hours Transthoracic Echocardiogram 03/02/2018: 1. The left ventricular chamber size is normal. Left ventricular wall thickness is normal. There isnormal global left ventricular systolic function. Ejection fraction is estimated to be 65%. There are no left ventricular segmental wall motion abnormalities. There are no left ventricular segmental wall motion abnormalities. Doppler assessment is consistent with normal left sided filling pressure. 2. The right ventricle is probably normal in size. Right ventricular global systolic function is probably normal. Pulmonary artery hypertension could not be assessed due to inadequate tricuspid regurgitation jet. 3. The atria are not well visualized. 4. There is no hemodynamically significant valvular disease. 5. See report below for remainder of findings. Assessment and Plan 27 year old male with complex past medical history including guillen hypotpituitarism, cognitive impairment, seizure disorder, who presented in August with a seizure and associated left acetabular fracture in the context of osteopenia from chronic steroid use, status post operative repair September 04. His subsequent hospital course has been notable for recurrent hypernatremia - now on a stable dose of desmopressin. He has had some worsening hypernatremia over the past several days however that hasimproved with increased PO intake. Desmopressin dose remains the same. Otherwise he has remained afebrile for 48 hours. Urine and blood cultures with no significant growth. No further plans to workup at this time. Cardiovascularly he remains stable and HR have improved. Given EKG changes and family history of premature cardiac disease, fasting lipids were checked which revealed triglycerides >2000. Echocardiogram WNL. Unfortunately patient is allergic to fibrates (sister could not recall allergy specifically). Since he has gained >40 lbs since hospitalization, I have modified his diet to a heart healthy diet. In the interim will continue medical optimization as below. Plan: # Fever # Tachycardia - Resolved - Workup unremarkable - No role for antibiotics at this time - No further workup planned # T-Wave Inversions # Hypertriglyceridemia - EKG stable - Continue ASA 81 mg PO daily - Continue atorvastatin 40 mg PO daily - Continue metoprolol succinate 75 mg PO daily - Continue healthy diet - Weekly weights #Hypernatremia #Guillen-hypopituitarism #Diabetes insipidus #Hypothyroidism #Adrenal insufficiency #Hypogonadism - Continuing to encourage oral hydration with non-caffeine containing beverages - Continue present dosing of desmopressin, hydrocortisone, levothyroxine, testosterone - No indication for either GI or pneumocystis prophylaxis on basis of low total daily steroid dose (~7.5 mg prednisone equivalent) # Left acetabular fracture, status post operative repair 09/04/17 - Weight bearing as tolerated since 11/21 - Expert orthopedics recommendations appreciated, no follow up planned - Acetaminophen, ibuprofen PRNs - Intermittently cooperative with rehabilitation team, continue to encourage PT/OT as able # Cognitive impairment with emotional disturbance - At baseline per caregiver and prior providers - Continue quetiapine scheduled and PRN - Continue trazodone, melatonin - Delirium precautions and non-pharmacologic interventions # Seizure disorder - Zonisamide level low on admission, re-loaded per Neurology and home dose increased - Continue zonisamide 200 mg daily # Urinary retention, now resolved - PRN bladder scan/straight catheterization intermittently # Low bone mineral density - Calcium/Vitamin D supplementation - Initial injury occurred in context of seizure rather than pathologic fracture from low density - Endocrinology to consider bisphosphonate as oupatient # Fractured left lower molar - Non-urgent extraction as outpatient Diet [facility] Healthy Diet Discharge planning Awaiting placement, medically ready for discharge. CM working hard to secure placement Lines/Access None Morse catheter None DVT Prophylaxis None, patient is ambulatory Code status FULL Team Pager [phone] PCP NAKIA Cifuentes Attestation IPI Certification I certify that I am a D-H credentialed attending provider with admitting privileges and that the patient meets or has met medical necessity to require an inpatient IPI level of care meeting a minimumof two midnights or is on the CMS inpatient only procedure list (status C) due to: the patient has met Inpatient IPI criteria and is awaiting rehabilitation or half-way facility placement withactive referrals in process REBA LINTON MD * Shruti Lozoya, RN - 03/05/2018 2:05 AM EDT 03/03/18-03/04/18 [id number] Patient not wearing continuous masimo due to safety reasons. Pt agitated at times and decision madeby this RN to keep continuous masimo off but to do spot checks. Will continue to monitor Spo2 and will inform MD of any changes. * Echo Hanson RN - 03/04/2018 5:05 PM EDT Continuing to support complex discharge planning on behalf of care management. Patient continues to be medically ready and appropriate for nursing home/shared living provider. See recent nursing and provider notes for care needs. Communication ongoing with [facility] who is planning to arrange discharge situation for patient in [facility] with staff. [facility], as the [facility] crisis bed facilitation organization, isconsidering admitting patient to crisis bed shortterm with plan to transfer to [facility] setup. Recvd communication from [facility] they are now planning to do onsite visit to assess appropriateness ofcrisis bed placement vs gathering information about patient's needs and plan for discharge this week. [facility] will likely not be able to support transfer this week. Given patient's overall situation, crisis placement may not be therapeutic for patient as it can have frequent admits/discharges and disruptions for client, and he would endure another transition once a permanent placement is secured. Due to protracted planning with both [facility] and [place], call placed to [place] [facility] ([facility] [place] organization for the Designated MH Agencies) Director of MH services (Prosper Carter) and Director of Dev Services ([place] Jones) to review scenario with PHI redacted. [place] will be contacting Carissa Posada with [facility] to encourage increased communication of barriers to discharge. Both agreed with advocacy to [place] [employer] as well as informing patient's guardian that she does have the right to seek DS services in another [facility]. Call placed to [place] [employer] to jackscrew worker Erlinda [phone] [phone] who has passed Guido's case along for review with their high rigger. The main concern is protracted non-acute stay for individual with intellectual disabilities. Shared guardian contact information. Call placed to guardian Bettina STAFFORD left at her cell phone # to return call. Plan to update her andensure she is aware of [place] [employer] as a resource as well as [facility]. PLAN: - conference call scheduled for 03/05 at 2pm with ZOYA and staff - appreciate coordination by PRANEETH Garcia d/ollie to shared living provider or crisis bed if approved by NIKUNJ and/or ZOYA - onsite visit by [facility] is the first step and they have not yet agreed to a date/time - continue to advocate for services and support as above Echo Hanson RN, MSN, ACM Dining Room Manager - Care Management [phone] / [phone] pager [phone] [email or web address] * Shruti Lozoya RN - 03/04/2018 4:01 AM EDT 03/03/18-03/04/18 [id number] Patient does not have continuous masimo monitor in place, pt does allow spot checks. The reason forno masimo is due to safety and pt's level of agitation (intermittent). Will continue to assess needfor continuous masimo and will continue spot checks with VS. * Reba Linton MD - 03/03/2018 4:52 PM EDT Hospital Medicine Attending Daily Progress Note Patient Description: 27 y.o. male admitted to the hospital medicine service for a left acetabular fracture sustained in the context of a seizure with low serum level of anti-seizure medication. 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 Active Hospital Problems Diagnosis ??? S/P ORIF left acetabulum fracture 09/04/2017 Dr. Lance ??? Diabetes insipidus ??? Panhypopituitarism Resolved Hospital Problems Diagnosis Date Resolved ??? Hypernatremia 01/24/2018 ??? Acute urinary retention 01/24/2018 ??? Postoperative anemia due to acute blood loss 12/09/2017 Active Non-Hospital Problems Diagnosis ??? Seizure disorder ??? Insomnia ??? Blind ??? CVA (cerebral vascular accident) ??? Urinary incontinence Interval Events: No acute events overnight. Could not complete ROS given baseline mentation. Physical Exam Vital Signs Temp: 36.7 ??C (98.1 ??F) Temp src: Oral Heart Rate: (!) 105 Heart Rate Source: Monitor Resp: 24 BP: 138/81 MAP (NBP): 93 mmHg BP Method: Automatic BP Location: Left arm Patient Position: Lying SpO2: 98 % O2 Flow Rate (L/min): 0 L/min O2 Device: None (Room air) General: NAD, lying in bed and yelling out HEENT: Moist mucous membranes Neck: No jugular venous distention Cor: Normal rate, regular rhythm, s1/s2 present Lungs: Clear to auscultation anterior medellin Abdomen: Soft, non-tender, non-distended; bowel sounds (+) Extremities: warm, no LE edema Skin: no rash; warm, dry Neuro: Appears to be cognitively at baseline Fluid Balance: Intake/Output Summary (Last 24 hours) at 03/03/18 1652 Last data filed at 03/03/18 1614 Gross per 24 hour Intake 2514 ml Output 1850 ml Net 664 ml Last Weight: 99.2 kg (218 lb 12.8 oz) Admission Weight: 86.64 kg Pertinent Labs Recent Labs 03/03/18 1247 03/02/18 0626 03/01/18 0835 NA 150* 145 148* K 4.3 3.5 Not Perf CL 114* 109* 107 CO2 22 23 26 BUN 14 17 22* CREATININE 0.81 0.64* 0.96 Recent Labs 03/03/18 1247 03/02/18 0626 03/01/18 0835 CALCIUM 9.6 9.5 9.5 Microbiology None recent Radiology & Studies in Last 24 Hours Transthoracic Echocardiogram 03/02/2018: 1. The left ventricular chamber size is normal. Left ventricular wall thickness is normal. There isnormal global left ventricular systolic function. Ejection fraction is estimated to be 65%. There are no left ventricular segmental wall motion abnormalities. There are no left ventricular segmental wall motion abnormalities. Doppler assessment is consistent with normal left sided filling pressure. 2. The right ventricle is probably normal in size. Right ventricular global systolic function is probably normal. Pulmonary artery hypertension could not be assessed due to inadequate tricuspid regurgitation jet. 3. The atria are not well visualized. 4. There is no hemodynamically significant valvular disease. 5. See report below for remainder of findings. Assessment and Plan 27 year old male with complex past medical history including guillen hypotpituitarism, cognitive impairment, seizure disorder, who presented in August with a seizure and associated left acetabular fracture in the context of osteopenia from chronic steroid use, status post operative repair September 04. His subsequent hospital course has been notable for recurrent hypernatremia - now on a stable dose of desmopressin. He has had some worsening hypernatremia over the past several days however that hasimproved with increased PO intake. Desmopressin dose remains the same. Otherwise he has remained afebrile for 48 hours. Urine and blood cultures with no significant growth. No further plans to workup at this time. Cardiovascularly he remains stable and HR have improved. Given EKG changes and family history of premature cardiac disease, fasting lipids were checked which revealed triglycerides >2000. Echocardiogram WNL. Unfortunately patient is allergic to fibrates (sister could not recall allergy specifically). Sincehe has gained >40 lbs since hospitalization, will work with nutrition to modify diet in intensify activity where able. In the interim will continue medical optimization as below. Plan: # Fever # Tachycardia - Resolved - No role for antibiotics at this time - No further workup planned # T-Wave Inversions # Hypertriglyceridemia - EKG stable - Continue ASA 81 mg PO daily - Continue atorvastatin 40 mg PO daily - Continue metoprolol succinate 75 mg PO daily - Continue healthy diet - Weekly weights #Hypernatremia #Guillen-hypopituitarism #Diabetes insipidus #Hypothyroidism #Adrenal insufficiency #Hypogonadism - Continuing to encourage oral hydration with non-caffeine containing beverages - Continue present dosing of desmopressin, hydrocortisone, levothyroxine, testosterone - No indication for either GI or pneumocystis prophylaxis on basis of low total daily steroid dose (~7.5 mg prednisone equivalent) # Left acetabular fracture, status post operative repair 09/04/17 - Weight bearing as tolerated since 11/21 - Expert orthopedics recommendations appreciated, no follow up planned - Acetaminophen, ibuprofen PRNs - Intermittently cooperative with rehabilitation team, continue to encourage PT/OT as able # Cognitive impairment with emotional disturbance - At baseline per caregiver and prior providers - Continue quetiapine scheduled and PRN - Continue trazodone, melatonin - Delirium precautions and non-pharmacologic interventions # Seizure disorder - Zonisamide level low on admission, re-loaded per Neurology and home dose increased - Continue zonisamide 200 mg daily # Urinary retention, now resolved - PRN bladder scan/straight catheterization intermittently # Low bone mineral density - Calcium/Vitamin D supplementation - Initial injury occurred in context of seizure rather than pathologic fracture from low density - Endocrinology to consider bisphosphonate as oupatient # Fractured left lower molar - Non-urgent extraction as outpatient Diet [facility] Healthy Diet Discharge planning Awaiting placement, medically ready for discharge. CM working hard to secure placement Lines/Access None Morse catheter None DVT Prophylaxis None, patient is ambulatory Code status FULL Team Pager [phone] PCP NAKIA Cifuentes Attestation IPI Certification I certify that I am a D-H credentialed attending provider with admitting privileges and that the patient meets or has met medical necessity to require an inpatient IPI level of care meeting a minimumof two midnights or is on the [facility] inpatient only procedure list (status C) due to: the patient has met Inpatient IPI criteria and is awaiting rehabilitation or half-way facility placement withactive referrals in process REBA LINTON MD * Echo Hanson RN - 03/03/2018 3:32 PM EDT Continuing to support discharge planning for patient on behalf of care management. Patient medically ready since early October awaiting d/c plan arrangements from [facility]. Patient unableto return to nursing home setting due to inability to navigate stairs. [facility] continues to secure fci housing and a care team for him in a new residence. Email communication today with Carissa Posada, Chief Intellectual/Developmental Disabilities Services [facility] who is assisting with coordination of discharge plan. NIKUNJ, the crisis team for [facility], plans to visit patient this week (awaiting confirmation of date/time; continue to stress importance of a timely visit) to assess patient's needs in person. They are not able to do this via phone. Will alert care team once time/date confirmed. Carissa and [facility] team who will support patient upon d/c are also requesting phone care conference with team to discuss daily care needs in preparation for transition. PLAN: 1- [facility]IKUN[facility] crisis team to visit patient this week to assess care needs in anticipation of transition to crisis bed in [facility] with [facility] support 2- 03/05 afternoon phone care conference with [facility] and team (JAMSHID Dexter coordinating) to discuss daily care needs, meds and discharge transportation 3- discharge to crisis bed in [facility] in care of [facility] as patient comes from nursing home Anticipate discharge soon - unable to confirm date, likely during the week of 03/10. Care Management to continue to follow for d/c needs. Echo Hanson RN, MSN, ACM Dining Room Manager - Care Management [phone] / [phone] pager [phone] [email or web address] * Felecia Moran RN - 03/03/2018 2:20 AM EDT Assumed care of patient from 1900 to 2300. Patient in bed, restless and agitated intermittently. Compliant with medications this evening. Incontinence care provided as needed. Sitter remains at bedside. Report given to HEATHER Bledsoe. * Carla Palomares RD - 03/02/2018 2:20 PM EDT Nutrition Consult Note Miguel Angel Mason is a 27 y.o. male Reason for intervention: Consult Nutrition Recommendations: Recommend [facility] heart healthy diet order to restrict fat and sodium intake. Dietary guidelines for reducing elevated triglycerides provided to patients RN who will share with patients caregivers. Caloric intake should be limited to about 1700 calories per to day to promote gradual weight loss. Limit simple sugars, high fat dairy products, red and processed meats, eggs, etc. Encourage foods such as chicken, turkey, fish, low fat dairy products, beans/legumes, fruits, vegetables, and whole grains. Monitor weights at least weekly. Patient Active Problem List Diagnosis Code ??? S/P ORIF left acetabulum fracture 09/04/2017 Dr. Lance S32.409A ??? 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 Seizure disorder G40.909 ??? Insomnia G47.00 ??? Blind H54.7 ??? CVA (cerebral vascular accident) I63.9 ??? Urinary incontinence R32 History reviewed. No pertinent past medical history. Active Orders Diet Daily Healthy Menu Choices/Cardiac diet ([facility]-Diet) Frequency: Effective Now Number of Occurrences: Until Specified Admit Weight: 86.64 kg Estimated body mass index is 31.39 kg/(m^2) as calculated from the following: Height as of this encounter: 177.8 cm (5' 10). Weight as of this encounter: 99.2 kg (218 lb 12.8 oz). [place] Body Weight (IBW): [place] body weight: 73 kg (160 lb 15 oz) Adjusted ideal body weight: 83.5 kg (184 lb 1.3 oz) Weight gain: 27 lbs in 6 months since admission Estimated needs: Calories: 1700 or less Protein: 100 grams or less Today's medications: Lipitor, Tums, vitamin D3 1000 U, pericolace Lab Results Component Value Date NA 145 03/02/2018 K 3.5 03/02/2018 CL 109 (H) 03/02/2018 CO2 23 03/02/2018 BUN 17 03/02/2018 CREATININE 0.64 (L) 03/02/2018 GLUCOSE 102 03/02/2018 MAGNESIUM 0.92 11/15/2017 CALCIUM 9.5 03/02/2018 PHOS 3.2 09/08/2017 AST 23 09/04/2017 ALT 31 09/04/2017 ALKPHOS 75 09/04/2017 BILITOT 0.5 09/04/2017 BILIDIR 0.1 09/04/2017 TRIG 2210 03/01/2018 Results for MIGUEL ANGEL MASON ( ) as of 03/02/2018 14:26 Ref. Range 03/01/2018 08:35 Chol, Total Latest Units: mg/dL 273 HDL Latest Units: mg/dL 13 Chol/HDL Ratio Latest Units: ratio 21.0 Triglycerides Latest Units: mg/dL 2210 LDL Cholesterol Unknown Not Calculated LDL Chol Direct Latest Units: mg/dL 31 Lipid Interpretation Unknown See Note Last Bowel Movement: 03/01/18 Assessment: Pt seen for nutrition consult re elevated triglyceride levels (noted to be 2210!) and weight gain during admission. Per nursing staff patient has an excellent appetite and eats 100% of meals and snacks. Discussed my recommendation for adding heart healthy diet restrictions to his diet and nursing agreed and does not think patient will mind the change. Pt likes fruits, vegetables and all foods. Provided printed information to RN to share with patients caregivers so that it can be worked into his daily plan when they find placement for him at a new facility. MARIYA ZENDEJAS Beeper #: [phone] * Reba Linton MD - 03/02/2018 1:12 PM EDT [facility] Medicine Attending Daily Progress Note Patient Description: 27 y.o. male admitted to the hospital medicine service for a left acetabular fracture sustained in the context of a seizure with low serum level of anti-seizure medication. 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 Active Hospital Problems Diagnosis ??? S/P ORIF left acetabulum fracture 09/04/2017 Dr. Lance ??? Diabetes insipidus ??? Panhypopituitarism Resolved Hospital Problems Diagnosis Date Resolved ??? Hypernatremia 01/24/2018 ??? Acute urinary retention 01/24/2018 ??? Postoperative anemia due to acute blood loss 12/09/2017 Active Non-Hospital Problems Diagnosis ??? Seizure disorder ??? Insomnia ??? Blind ??? CVA (cerebral vascular accident) ??? Urinary incontinence Interval Events: No acute events overnight. Eating lunch when I see him today. Could not complete ROS given baseline mentation. Physical Exam Vital Signs Temp: 36.6 ??C (97.9 ??F) Temp src: Oral Heart Rate: 98 Heart Rate Source: Monitor Resp: 16 BP: 114/65 MAP (NBP): 75 mmHg BP Method: Automatic BP Location: Left arm Patient Position: Lying SpO2: 96 % O2 Flow Rate (L/min): 0 L/min O2 Device: None (Room air) General: NAD, eating lunch, sitting up in bed intermittently yelling out. HEENT: Moist mucous membranes Neck: No jugular venous distention Cor: Normal rate, regular rhythm, s1/s2 present Lungs: Clear to auscultation anterior medellin Abdomen: Soft, non-tender, non-distended; bowel sounds (+) Extremities: warm, no LE edema Skin: no rash; warm, dry Neuro: Appears to be cognitively at baseline Fluid Balance: Intake/Output Summary (Last 24 hours) at 03/02/18 1312 Last data filed at 03/02/18 1030 Gross per 24 hour Intake 2430 ml Output 2075 ml Net 355 ml Last Weight: 99.2 kg (218 lb 12.8 oz) Admission Weight: 86.64 kg Pertinent Labs Recent Labs 03/02/18 0626 03/01/18 0835 02/28/18 1620 NA 145 148* 147* K 3.5 Not Perf 4.1 Not Perf CL 109* 107 109* CO2 23 26 21* BUN 17 22* 15 CREATININE 0.64* 0.96 1.02 Recent Labs 03/02/18 0626 03/01/18 0835 02/28/18 1620 CALCIUM 9.5 9.5 9.3 Microbiology None recent Radiology & Studies in Last 24 Hours None Assessment and Plan 27 year old male with complex past medical history including guillen hypotpituitarism, cognitive impairment, seizure disorder, who presented in August with a seizure and associated left acetabular fracture in the context of osteopenia from chronic steroid use, status post operative repair September 04. His subsequent hospital course has been notable for recurrent hypernatremia - now on a stable dose of desmopressin. He has had some worsening hypernatremia over the past several days however that hasnow improved with increased PO intake. Desmopressin dose remains the same. Otherwise he has remained afebrile for 48 hours. Urine and blood cultures with no significant growth. No further plans to workup at this time. Cardiovascularly he remains stable and HR have improved. Given EKG changes and family history of premature cardiac disease, fasting lipids were checked which revealed triglycerides >2000. Unfortunately patient is allergic to fibrates (sister could not recall allergy specifically). Since he has gained >40 lbs since hospitalization, will work with nutrition to modify diet in intensify activity where able. In the interim will continue beta gui therapy, aspirin and statin. Will also plan for echocardiogram today. Plan: # Fever # Tachycardia - Resolved - No role for antibiotics at this time - No further workup planned # T-Wave Inversions # Hypertriglyceridemia - EKG stable - Continue ASA 81 mg PO daily - Continue atorvastatin 40 mg PO daily - Continue metoprolol succinate 75 mg PO daily - Transthoracic echocardiogram today - Nutrition consult, will transition to heart healthy diet #Hypernatremia #Guillen-hypopituitarism #Diabetes insipidus #Hypothyroidism #Adrenal insufficiency #Hypogonadism - Resolved - Continuing to encourage oral hydration with non-caffeine containing beverages - Continue present dosing of desmopressin, hydrocortisone, levothyroxine, testosterone - No indication for either GI or pneumocystis prophylaxis on basis of low total daily steroid dose (~7.5 mg prednisone equivalent) # Left acetabular fracture, status post operative repair 09/04/17 - Weight bearing as tolerated since 11/21 - Expert orthopedics recommendations appreciated, no follow up planned - Acetaminophen, ibuprofen PRNs - Intermittently cooperative with rehabilitation team, continue to encourage PT/OT as able # Cognitive impairment with emotional disturbance - At baseline per caregiver and prior providers - Continue quetiapine scheduled and PRN - Continue trazodone, melatonin - Delirium precautions and non-pharmacologic interventions # Seizure disorder - Zonisamide level low on admission, re-loaded per Neurology and home dose increased - Continue zonisamide 200 mg daily # Urinary retention, now resolved - PRN bladder scan/straight catheterization intermittently # Low bone mineral density - Calcium/Vitamin D supplementation - Initial injury occurred in context of seizure rather than pathologic fracture from low density - Endocrinology to consider bisphosphonate as oupatient # Fractured left lower molar - Non-urgent extraction as outpatient Diet [facility] Healthy Diet Discharge planning Awaiting placement, medically ready for discharge. CM working hard to secure placement Lines/Access None Morse catheter None DVT Prophylaxis None, patient is ambulatory Code status FULL Team Pager [phone] PCP NAKIA Cifuentes Attestation IPI Certification I certify that I am a D-H credentialed attending provider with admitting privileges and that the patient meets or has met medical necessity to require an inpatient IPI level of care meeting a minimumof two midnights or is on the [facility] inpatient only procedure list (status C) due to: the patient has met Inpatient IPI criteria and is awaiting rehabilitation or half-way facility placement withactive referrals in process REBA LINTON MD * Reba Linton MD - 03/01/2018 2:31 PM EDT Hospital Medicine Attending Daily Progress Note Patient Description: 27 y.o. male admitted to the hospital medicine service for a left acetabular fracture sustained in the context of a seizure with low serum level of anti-seizure medication. 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 Active Hospital Problems Diagnosis ??? S/P ORIF left acetabulum fracture 09/04/2017 Dr. Lance ??? Diabetes insipidus ??? Panhypopituitarism Resolved Hospital Problems Diagnosis Date Resolved ??? Hypernatremia 01/24/2018 ??? Acute urinary retention 01/24/2018 ??? Postoperative anemia due to acute blood loss 12/09/2017 Active Non-Hospital Problems Diagnosis ??? Seizure disorder ??? Insomnia ??? Blind ??? CVA (cerebral vascular accident) ??? Urinary incontinence Interval Events: No acute events overnight. Walking around the unit today with nursing. Afebrile. Tachycardia now at baseline. EKG unchanged and cardiac enzymes negative. Could not complete ROS givenbaseline mentation. Physical Exam Vital Signs Temp: 36.5 ??C (97.7 ??F) Temp src: Axillary Heart Rate: (!) 105 Heart Rate Source: Monitor Resp: 18 BP: 142/86 MAP (NBP): 98 mmHg BP Method: Automatic BP Location: Left arm Patient Position: Lying SpO2: 98 % O2 Flow Rate (L/min): 0 L/min O2 Device: None (Room air) General: NAD, yelling out intermittently, sitting at the edge of bed reading chaz potter with SCREENER AND BLENDER HEENT: Moist mucous membranes Neck: No jugular venous distention Cor: Normal rate, regular rhythm, s1/s2 present Lungs: Clear to auscultation anterior medellin Abdomen: Soft, non-tender, non-distended; bowel sounds (+) Extremities: warm, no LE edema Skin: no rash; warm, dry Neuro: Appears to be cognitively at baseline Fluid Balance: Intake/Output Summary (Last 24 hours) at 03/01/18 1432 Last data filed at 03/01/18 1100 Gross per 24 hour Intake 3415 ml Output 2000 ml Net 1415 ml Last Weight: 99.2 kg (218 lb 12.8 oz) Admission Weight: 86.64 kg Pertinent Labs Recent Labs 03/01/18 0835 02/28/18 1620 02/28/18 0926 NA 148* 147* 150* K Not Perf 4.1 Not Perf Not Perf CL 107 109* 112* CO2 26 21* 23 BUN 22* 15 13 CREATININE 0.96 1.02 0.89 Recent Labs 03/01/18 0835 02/28/18 1620 02/28/18 0926 CALCIUM 9.5 9.3 9.7 Microbiology None recent Radiology & Studies in Last 24 Hours None Assessment and Plan 27 year old male with complex past medical history including guillen hypotpituitarism, cognitive impairment, seizure disorder, who presented in August with a seizure and associated left acetabular fracture in the context of osteopenia from chronic steroid use, status post operative repair September 04. His subsequent hospital course has been notable for recurrent hypernatremia - now on a stable dose of desmopressin. He has had some worsening hypernatremia over the past several days however that hasimproved with increased PO intake. Desmopressin dose remains the same. Patient was febrile and tachycardic yesterday. Urine and blood cultures were drawn and are pending.Today he is afebrile without leukocytosis and his tachycardia has returned to baseline. Will not work up further unless fever recurs. No role for antibiotics at this time. His repeat EKG shows some pe rsistent TWI in leads II, III and avF as well as the lateral leads. Troponins are negative. Unclearif this is secondary to demand however in the absence of a troponin leak, ACS is unlikely. Given family history of premature cardiac disease, fasting lipids were checked which revealed triglycerides >2000. Unfortunately patient is allergic to fibrates (sister could not recall allergy specifically). Since he has gained >40 lbs since hospitalization, will work with nutrition to modify diet inintensify activity where able. In the interim will augment beta gui therapy, start aspirin and statin. Will also plan for echocardiogram tomorrow. I have called and updated the patient's sister today. Plan: # Fever # Tachycardia - Resolved - Blood and urine cultures pending - No role for antibiotics at this time # T-Wave Inversions # Hypertriglyceridemia - EKG stable - Start ASA 81 mg PO daily - Start atorvastatin 40 mg PO daily - Increase metoprolol succinate 75 mg PO daily - Transthoracic echocardiogram in AM #Hypernatremia #Guillen-hypopituitarism #Diabetes insipidus #Hypothyroidism #Adrenal insufficiency #Hypogonadism - Improving - Continuing to encourage oral hydration with non-caffeine containing beverages - Continue present dosing of desmopressin, hydrocortisone, levothyroxine, testosterone - No indication for either GI or pneumocystis prophylaxis on basis of low total daily steroid dose (~7.5 mg prednisone equivalent) # Left acetabular fracture, status post operative repair 09/04/17 - Weight bearing as tolerated since 11/21 - Expert orthopedics recommendations appreciated, no follow up planned - Acetaminophen, ibuprofen PRNs - Intermittently cooperative with rehabilitation team, continue to encourage PT/OT as able # Cognitive impairment with emotional disturbance - At baseline per caregiver and prior providers - Continue quetiapine scheduled and PRN - Continue trazodone, melatonin - Delirium precautions and non-pharmacologic interventions # Seizure disorder - Zonisamide level low on admission, re-loaded per Neurology and home dose increased - Continue zonisamide 200 mg daily # Urinary retention, now resolved - PRN bladder scan/straight catheterization intermittently # Low bone mineral density - Calcium/Vitamin D supplementation - Initial injury occurred in context of seizure rather than pathologic fracture from low density - Endocrinology to consider bisphosphonate as oupatient # Fractured left lower molar - Non-urgent extraction as outpatient Diet Regular diet Discharge planning Awaiting placement, medically ready for discharge. CM working hard to secure placement Lines/Access None Morse catheter None DVT Prophylaxis None, patient is ambulatory Code status FULL Team Pager [phone] PCP NAKIA Cifuentes Attestation IPI Certification I certify that I am a D-H credentialed attending provider with admitting privileges and that the patient meets or has met medical necessity to require an inpatient IPI level of care meeting a minimumof two midnights or is on the [facility] inpatient only procedure list (status C) due to: the patient has met Inpatient IPI criteria and is awaiting rehabilitation or half-way facility placement withactive referrals in process REBA LINTON MD * Reba Linton MD - 02/28/2018 3:44 PM EDT [facility] Medicine Attending Daily Progress Note Patient Description: 27 y.o. male admitted to the hospital medicine service for a left acetabular fracture sustained in the context of a seizure with low serum level of anti-seizure medication. 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 Active Hospital Problems Diagnosis ??? S/P ORIF left acetabulum fracture 09/04/2017 Dr. Lance ??? Diabetes insipidus ??? Panhypopituitarism Resolved Hospital Problems Diagnosis Date Resolved ??? Hypernatremia 01/24/2018 ??? Acute urinary retention 01/24/2018 ??? Postoperative anemia due to acute blood loss 12/09/2017 Active Non-Hospital Problems Diagnosis ??? Seizure disorder ??? Insomnia ??? Blind ??? CVA (cerebral vascular accident) ??? Urinary incontinence Interval Events: Tachycardic overnight. EKG with TWI. Cardiac enzymes hemolyzed. Patient asymptomatic and denies pain. Could not complete ROS given baseline mentation. Physical Exam Vital Signs Temp: 38.6 ??C (101.4 ??F) Temp src: Axillary Heart Rate: (!) 133 Heart Rate Source: SaO2 Resp: 26 BP: (!) 130/94 MAP (NBP): 90 mmHg BP Method: Automatic BP Location: Left arm Patient Position: Lying SpO2: 93 % O2 Flow Rate (L/min): 0 L/min O2 Device: None (Room air) General: NAD, yelling out intermittently HEENT: Moist mucous membranes Neck: No jugular venous distention Cor: Normal rate, regular rhythm, s1/s2 present Lungs: Clear to auscultation anterior medellin Abdomen: Soft, non-tender, non-distended; bowel sounds (+) Extremities: warm, no LE edema Skin: no rash; warm, dry Neuro: Appears to be cognitively at baseline Fluid Balance: Intake/Output Summary (Last 24 hours) at 02/28/18 1544 Last data filed at 02/28/18 1430 Gross per 24 hour Intake 3411 ml Output 800 ml Net 2611 ml Last Weight: 99.2 kg (218 lb 12.8 oz) Admission Weight: 86.64 kg Pertinent Labs Recent Labs 02/28/18 0926 02/27/18 0558 02/27/18 0414 02/24/18 0525 NA 150* -- 146* 146* K Not Perf 4.3 Not Perf 3.5 CL 112* -- 111* 106 CO2 23 -- 23 27 BUN 13 -- 12 22* CREATININE 0.89 -- 0.63* 0.79* Recent Labs 02/28/18 0926 02/27/18 0414 02/24/18 0525 CALCIUM 9.7 9.7 9.7 Microbiology None recent Radiology & Studies in Last 24 Hours None Assessment and Plan 27 year old male with complex past medical history including guillen hypotpituitarism, cognitive impairment, seizure disorder, who presented in August with a seizure and associated left acetabular fracture in the context of osteopenia from chronic steroid use, status post operative repair September 04. His subsequent hospital course has been notable for recurrent hypernatremia - now on a stable dose of desmopressin with fluctuating PO intake - and urinary retention, now resolved. Patient was tachycardic overnight. EKG performed revealed sinus tachycardia with TWI in II, III, avF, lateral leads. Multiple attempts were made to collect cardiac enzymes however all the specimens have hemolyzed. Today, he is febrile and tachycardic. Repeat EKG with now flattening t-waves in II, III and avF but persistent TWI in lateral leads. He is hypernatremic to 150. He has no localizing symptoms albeit this is difficult to assess given his baseline mentation. At this time, I am unclear on the source of his fever so will initiate infectious workup with urineand blood cultures. I suspect his EKG changes were 2/2 demand in the setting of an evolving underlying infectious process. Will re- draw cardiac enzymes. Since EKG is improving and he is asymptomatic,I will recheck in AM. His hypernatremia appears to be in the setting of decreased PO fluid intake over the past several days so will liberalize fluid intake and trend chemistries. Plan: # Fever # Tachycardia - Tylenol - Blood and urine cultures - Check WBC in AM - No role for antibiotics at this time # T-Wave Inversions - Improving on repeat EKG - Cardiac enzymes pending, will follow-up - Repeat EKG in AM #Hypernatremia #Guillen-hypopituitarism #Diabetes insipidus #Hypothyroidism #Adrenal insufficiency #Hypogonadism - Worsening - Encourage oral hydration with non-caffeine containing beverages - If able to place IV will give 500 cc IVF bolus - Recheck chemistry in AM - Continue present dosing of desmopressin, hydrocortisone, levothyroxine, testosterone - No indication for either GI or pneumocystis prophylaxis on basis of low total daily steroid dose (~7.5 mg prednisone equivalent) # Left acetabular fracture, status post operative repair 09/04/17 - Weight bearing as tolerated since 11/21 - Expert orthopedics recommendations appreciated, no follow up planned - Acetaminophen, ibuprofen PRNs - Intermittently cooperative with rehabilitation team, continue to encourage PT/OT as able # Cognitive impairment with emotional disturbance - At baseline per caregiver and prior providers - Continue quetiapine scheduled and PRN - Continue trazodone, melatonin - Delirium precautions and non-pharmacologic interventions # Seizure disorder - Zonisamide level low on admission, re-loaded per Neurology and home dose increased - Continue zonisamide 200 mg daily # Urinary retention, now resolved - PRN bladder scan/straight catheterization intermittently # Low bone mineral density - Calcium/Vitamin D supplementation - Initial injury occurred in context of seizure rather than pathologic fracture from low density - Endocrinology to consider bisphosphonate as oupatient # Fractured left lower molar - Non-urgent extraction as outpatient Diet Regular diet Discharge planning Awaiting placement, medically ready for discharge. CM working hard to secure placement Lines/Access None Morse catheter None DVT Prophylaxis None, patient is ambulatory Code status FULL Team Pager [phone] PCP NAKIA Cifuentes Attestation IPI Certification I certify that I am a D-H credentialed attending provider with admitting privileges and that the patient meets or has met medical necessity to require an inpatient IPI level of care meeting a minimumof two midnights or is on the CMS inpatient only procedure list (status C) due to: the patient has met Inpatient IPI criteria and is awaiting rehabilitation or half-way facility placement withactive referrals in process REBA LINTON MD * Tricia Gerber RN - 02/27/2018 11:04 AM EDT Received call back from Noel Estrella- [phone] PASSR reviewer. She reports that PASSR is not needed unless patient is placed in a fdc, which is not an appropriate setting for him. States she has been following case closely with YULISA Quevedo, and all parties involved would like him placed as soon as possible. Reports that they are looking at possible transfer to crisis center when there is a bed opening. Tricia Gerber RN Case Homemaker Companion of Care Management [email or web address] Pager: [phone] * Abimbola Goldstein MD - 02/27/2018 8:20 AM EDT Hospital Medicine Attending Daily Progress Note Patient Description: 27 y.o. male admitted to the hospital medicine service for a left acetabular fracture sustained in the context of a seizure with low serum level of anti-seizure medication. 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 Active Hospital Problems Diagnosis ??? S/P ORIF left acetabulum fracture 09/04/2017 Dr. Lance ??? Diabetes insipidus ??? Panhypopituitarism Resolved Hospital Problems Diagnosis Date Resolved ??? Hypernatremia 01/24/2018 ??? Acute urinary retention 01/24/2018 ??? Postoperative anemia due to acute blood loss 12/09/2017 Active Non-Hospital Problems Diagnosis ??? Seizure disorder ??? Insomnia ??? Blind ??? CVA (cerebral vascular accident) ??? Urinary incontinence Interval Events No episodes of agitation per RN. No other acute events. Physical Exam Vital Signs Temp: (Patient sleeping, no vitals per MD order.) Temp src: Oral Heart Rate: (!) 121 Heart Rate Source: Monitor Resp: 18 BP: 121/76 MAP (NBP): 84 mmHg BP Method: Automatic BP Location: Left arm Patient Position: Lying SpO2: 96 % O2 Flow Rate (L/min): 0 L/min O2 Device: None (Room air) General: NAD HEENT: Moist mucous membranes Neck: No jugular venous distention Cor: Normal rate, regular rhythm, s1/s2 present Lungs: Clear to auscultation anterior medellin Abdomen: Soft, non-tender, non-distended; bowel sounds (+) Extremities: warm, no LE edema Skin: no rash; warm, dry Neuro: Appears to be cognitively at baseline Fluid Balance: Intake/Output Summary (Last 24 hours) at 02/27/18 0820 Last data filed at 02/26/18 2130 Gross per 24 hour Intake 862 ml Output 1000 ml Net -138 ml Last Weight: 98.9 kg (218 lb 1.6 oz) Admission Weight: 86.64 kg Pertinent Labs Recent Labs 02/27/18 0558 02/27/18 0414 02/24/18 0525 02/23/18 0910 NA -- 146* 146* 150* K 4.3 Not Perf 3.5 3.9 CL -- 111* 106 111* CO2 -- 24 BUN -- 12 22* 19 CREATININE -- 0.63* 0.79* 0.79* Recent Labs 02/27/18 0414 02/24/18 0525 02/23/18 0910 CALCIUM 9.7 9.7 10.3 Microbiology None recent Radiology & Studies in Last 24 Hours None Assessment and Plan 27 year old male with complex past medical history including guillen hypotpituitarism, cognitive impairment, seizure disorder, who presented in August with a seizure and associated left acetabular fracture in the context of osteopenia from chronic steroid use, status post operative repair September 04. His subsequent hospital course has been notable for recurrent hypernatremia - now on a stable dose of desmopressin - and urinary retention, now resolved. He is medically stable for discharge and awaiting a safe disposition. Appreciate case management efforts in this regard. If recurrent issues with hypernatremia arise, we will plan to liberalize fluid restriction rather than alter desmopressin dosing. #Left acetabular fracture, status post operative repair 09/04/17 --Weight bearing as tolerated since 11/21 --Expert orthopedics recommendations appreciated, no follow up planned --Acetaminophen, ibuprofen PRNs --Intermittently cooperative with rehabilitation team, continue to encourage PT/OT as able #Cognitive impairment with emotional disturbance --At baseline per caregiver and prior providers --Continue quetiapine scheduled and PRN --Continue trazodone, melatonin --Delirium precautions and non-pharmacologic interventions #Guillen-hypopituitarism #Diabetes insipidus #Hypothyroidism #Adrenal insufficiency #Hypogonadism #Hypernatremia --Continue present dosing of desmopressin, hydrocortisone, levothyroxine, testosterone -- BMP check weekly, Na stable at 146 on 02/27. --Liberalized fluid restriction earlier in the week to 4L and encourage increased oral hydration --cont desmopressin, levothyroxine and hydrocortisone dosing all adjusted during hospitalization --Endocrinology recommendations appreciated --No indication for either GI or pneumocystis prophylaxis on basis of low total daily steroid dose (~7.5 mg prednisone equivalent) #Seizure disorder --Zonisamide level low on admission, re-loaded per Neurology and home dose increased --Continue zonisamide 200 mg daily #Urinary retention, now resolved --PRN bladder scan/straight catheterization intermittently #Low bone mineral density --Calcium/Vitamin D supplementation --Initial injury occurred in context of seizure rather than pathologic fracture from low density --Endocrinology to consider bisphosphonate as oupatient #Fractured left lower molar --Non-urgent extraction as outpatient #FEN/PPx/Dispo Fluids: oral ad mulu Nutrition: regular diet DVT PPx: ambulation, sequential compression devices Disposition: awaiting placement, medically ready for discharge. CM working hard to secure placement Code Status: Full Decision Maker: Guardian Sister Bettina Mason, contact information in Facesheet ABIMBOLA GOLDSTEIN MD [facility] Medicine Pager [phone] IPI Certification I certify that I am a D-H credentialed attending provider with admitting privileges and that the patient meets or has met medical necessity to require an inpatient IPI level of care meeting a minimumof two midnights or is on the CMS inpatient only procedure list (status C) due to: the patient has met Inpatient IPI criteria and is awaiting rehabilitation or half-way facility placement withactive referrals in process . * Echo Hanson RN - 02/26/2018 4:57 PM EDT Continuing to follow patient's situation to support discharge planning and facilitation by care management. Patient admitted from nursing home under Developmental Services in [facility] with [facility] Human Services. Exchanged emails this week with Carissa Posada, Chief of who is supporting Bhakti Riojas and others to secure appropriate housing and supports for him. Recvd email today from Carissa stating they are pending approval from the [facility] [employer] once they identify the leasing cost of a home. She is available tomorrow for a phone checkin and Care Management leadership will call to check in as she will be in the [facility] office [phone] ext [phone]. Guardian has been communicated with by HEATHER Clarke. Care Mgmt leadership to continue to follow and obtain regular updates from ZOYA. Patient requires single-level entry to home which prevents his return to previous living situation. Echo Hanson RN, MSN, ACM-disc pad grinding machine feeder, Care Management [email or web address] [phone] / pager [phone] * Abimbola Goldstein MD - 02/26/2018 8:28 AM EDT Hospital Medicine Attending Daily Progress Note Patient Description: 27 y.o. male admitted to the hospital medicine service for a left acetabular fracture sustained in the context of a seizure with low serum level of anti-seizure medication. 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 Active Hospital Problems Diagnosis ??? S/P ORIF left acetabulum fracture 09/04/2017 Dr. Lance ??? Diabetes insipidus ??? Panhypopituitarism Resolved Hospital Problems Diagnosis Date Resolved ??? Hypernatremia 01/24/2018 ??? Acute urinary retention 01/24/2018 ??? Postoperative anemia due to acute blood loss 12/09/2017 Active Non-Hospital Problems Diagnosis ??? Seizure disorder ??? Insomnia ??? Blind ??? CVA (cerebral vascular accident) ??? Urinary incontinence Interval Events No episodes of agitation. Offers no complaints. Physical Exam Vital Signs Temp: 36.6 ??C (97.9 ??F) Temp src: Oral Heart Rate: 97 Heart Rate Source: Monitor Resp: 15 BP: 125/83 MAP (NBP): 96 mmHg BP Method: Auscultated BP Location: Left arm Patient Position: Lying SpO2: 98 % O2 Flow Rate (L/min): 0 L/min O2 Device: None (Room air) General: NAD HEENT: Moist mucous membranes Neck: No jugular venous distention Cor: Normal rate, regular rhythm, s1/s2 present Lungs: Clear to auscultation anterior medellin Abdomen: Soft, non-tender, non-distended; bowel sounds (+) Extremities: warm, no LE edema Skin: no rash; warm, dry Neuro: Appears to be cognitively at baseline Fluid Balance: Intake/Output Summary (Last 24 hours) at 02/26/18 0828 Last data filed at 02/26/18 0819 Gross per 24 hour Intake 2580 ml Output 1950 ml Net 630 ml Last Weight: 98.9 kg (218 lb 1.6 oz) Admission Weight: 86.64 kg Pertinent Labs Recent Labs 02/24/18 0525 02/23/18 0910 02/20/18 0538 NA 146* 150* 142 K 3.5 3.9 3.4* CL 106 111* 106 CO2 27 24 24 BUN 22* 19 15 CREATININE 0.79* 0.79* 0.68* Recent Labs 02/24/18 0525 02/23/18 0910 02/20/18 0538 CALCIUM 9.7 10.3 9.7 Microbiology None recent Radiology & Studies in Last 24 Hours None Assessment and Plan 27 year old male with complex past medical history including guillen hypotpituitarism, cognitive impairment, seizure disorder, who presented in August with a seizure and associated left acetabular fracture in the context of osteopenia from chronic steroid use, status post operative repair September 04. His subsequent hospital course has been notable for recurrent hypernatremia - now on a stable dose of desmopressin - and urinary retention, now resolved. He is medically stable for discharge and awaiting a safe disposition. Appreciate case management efforts in this regard. If recurrent issues with hypernatremia arise, we will plan to liberalize fluid restriction rather than alter desmopressin dosing. #Left acetabular fracture, status post operative repair 09/04/17 --Weight bearing as tolerated since 11/21 --Expert orthopedics recommendations appreciated, no follow up planned --Acetaminophen, ibuprofen PRNs --Intermittently cooperative with rehabilitation team, continue to encourage PT/OT as able #Cognitive impairment with emotional disturbance --At baseline per caregiver and prior providers --Continue quetiapine scheduled and PRN --Continue trazodone, melatonin --Delirium precautions and non-pharmacologic interventions #Guillen-hypopituitarism #Diabetes insipidus #Hypothyroidism #Adrenal insufficiency #Hypogonadism #Hypernatremia --Continue present dosing of desmopressin, hydrocortisone, levothyroxine, testosterone -- BMP check weekly, next check on 02/23 AM labs- Na 146: liberalized fluid restriction to 4L and encourage increased oral hydration today. Repeat Na on 02/27 --cont desmopressin, levothyroxine and hydrocortisone dosing all adjusted during hospitalization --Endocrinology recommendations appreciated --No indication for either GI or pneumocystis prophylaxis on basis of low total daily steroid dose (~7.5 mg prednisone equivalent) #Seizure disorder --Zonisamide level low on admission, re-loaded per Neurology and home dose increased --Continue zonisamide 200 mg daily #Urinary retention, now resolved --PRN bladder scan/straight catheterization intermittently #Low bone mineral density --Calcium/Vitamin D supplementation --Initial injury occurred in context of seizure rather than pathologic fracture from low density --Endocrinology to consider bisphosphonate as oupatient #Fractured left lower molar --Non-urgent extraction as outpatient #FEN/PPx/Dispo Fluids: oral ad mulu Nutrition: regular diet DVT PPx: ambulation, sequential compression devices Disposition: awaiting placement, medically ready for discharge. LUCAS working hard to secure placement Code Status: Full Decision Maker: Guardian Sister Bettina Mason, contact information in Facesheet ABIMBOLA GOLDSTEIN MD [facility] Medicine Pager [phone] IPI Certification I certify that I am a D-H credentialed attending provider with admitting privileges and that the patient meets or has met medical necessity to require an inpatient IPI level of care meeting a minimumof two midnights or is on the [facility] inpatient only procedure list (status C) due to: the patient has met Inpatient IPI criteria and is awaiting rehabilitation or half-way facility placement withactive referrals in process . * Trciia Gerber RN - 02/25/2018 4:15 PM EDT Case reviewed in eDH and with interdisciplinary team. Patient was admitted on 09/02 with fractured acetabulum requiring ORIF (09/04). He continues to be medically ready for discharge. Placement has remained challenging. Statewide search for skilled facility has been completed however no bed offers have been received. Left voicemail for Bhakti Riojas, Senior Belt Fixer for [employer] [phone]. Called [facility] office [phone]. Spoke with Lali. She reports that Noel Estrella is assigned reviewer. States she will email her to check on status and call back. Spoke with Bettina Mason (Guardian/sister) [phone] (Z). She reports that she spoke with [employer] last week and they told her they were looking at a new nursing home in [place] and a rental property. States this was her last report from them. Tricia Gerber RN Case Homemaker Companion of Care Management [email or web address] Pager: [phone] * Abimbola Goldstein MD - 02/25/2018 12:06 PM EDT [facility] Medicine Attending Daily Progress Note Patient Description: 27 y.o. male admitted to the hospital medicine service for a left acetabular fracture sustained in the context of a seizure with low serum level of anti-seizure medication. 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 Active Hospital Problems Diagnosis ??? S/P ORIF left acetabulum fracture 09/04/2017 Dr. Lance ??? Diabetes insipidus ??? Panhypopituitarism Resolved Hospital Problems Diagnosis Date Resolved ??? Hypernatremia 01/24/2018 ??? Acute urinary retention 01/24/2018 ??? Postoperative anemia due to acute blood loss 12/09/2017 Active Non-Hospital Problems Diagnosis ??? Seizure disorder ??? Insomnia ??? Blind ??? CVA (cerebral vascular accident) ??? Urinary incontinence Interval Events No episodes of agitation. Offers no complaints. Physical Exam Vital Signs Temp: 36.7 ??C (98.1 ??F) Temp src: Oral Heart Rate: (!) 105 Heart Rate Source: Monitor Resp: 18 BP: 133/87 MAP (NBP): 97 mmHg BP Method: Automatic BP Location: Left arm Patient Position: Lying SpO2: 99 % O2 Flow Rate (L/min): 0 L/min O2 Device: None (Room air) General: NAD HEENT: Moist mucous membranes Neck: No jugular venous distention Cor: Normal rate, regular rhythm, s1/s2 present Lungs: Clear to auscultation anterior medellin Abdomen: Soft, non-tender, non-distended; bowel sounds (+) Extremities: warm, no LE edema Skin: no rash; warm, dry Neuro: Appears to be cognitively at baseline Fluid Balance: Intake/Output Summary (Last 24 hours) at 02/25/18 1206 Last data filed at 02/25/18 1200 Gross per 24 hour Intake 2705 ml Output 1250 ml Net 1455 ml Last Weight: 98.9 kg (218 lb 1.6 oz) Admission Weight: 86.64 kg Pertinent Labs Recent Labs 02/24/18 0525 02/23/18 0910 02/20/18 0538 NA 146* 150* 142 K 3.5 3.9 3.4* CL 106 111* 106 CO2 27 24 24 BUN 22* 19 15 CREATININE 0.79* 0.79* 0.68* Recent Labs 02/24/18 0525 02/23/18 0910 02/20/18 0538 CALCIUM 9.7 10.3 9.7 Microbiology None recent Radiology & Studies in Last 24 Hours None Assessment and Plan 27 year old male with complex past medical history including guillen hypotpituitarism, cognitive impairment, seizure disorder, who presented in August with a seizure and associated left acetabular fracture in the context of osteopenia from chronic steroid use, status post operative repair September 04. His subsequent hospital course has been notable for recurrent hypernatremia - now on a stable dose of desmopressin - and urinary retention, now resolved. He is medically stable for discharge and awaiting a safe disposition. Appreciate case management efforts in this regard. If recurrent issues with hypernatremia arise, we will plan to liberalize fluid restriction rather than alter desmopressin dosing. #Left acetabular fracture, status post operative repair 09/04/17 --Weight bearing as tolerated since 11/21 --Expert orthopedics recommendations appreciated, no follow up planned --Acetaminophen, ibuprofen PRNs --Intermittently cooperative with rehabilitation team, continue to encourage PT/OT as able #Cognitive impairment with emotional disturbance --At baseline per caregiver and prior providers --Continue quetiapine scheduled and PRN --Continue trazodone, melatonin --Delirium precautions and non-pharmacologic interventions #Guillen-hypopituitarism #Diabetes insipidus #Hypothyroidism #Adrenal insufficiency #Hypogonadism #Hypernatremia --Continue present dosing of desmopressin, hydrocortisone, levothyroxine, testosterone -- BMP check weekly, next check on 8 AM labs- Na 146: liberalized fluid restriction to 4L and encourage increased oral hydration today. Repeat Na later this wk --cont desmopressin, levothyroxine and hydrocortisone dosing all adjusted during hospitalization --Endocrinology recommendations appreciated --No indication for either GI or pneumocystis prophylaxis on basis of low total daily steroid dose (~7.5 mg prednisone equivalent) #Seizure disorder --Zonisamide level low on admission, re-loaded per Neurology and home dose increased --Continue zonisamide 200 mg daily #Urinary retention, now resolved --PRN bladder scan/straight catheterization intermittently #Low bone mineral density --Calcium/Vitamin D supplementation --Initial injury occurred in context of seizure rather than pathologic fracture from low density --Endocrinology to consider bisphosphonate as oupatient #Fractured left lower molar --Non-urgent extraction as outpatient #FEN/PPx/Dispo Fluids: oral ad mulu Nutrition: regular diet DVT PPx: ambulation, sequential compression devices Disposition: awaiting placement, medically ready for discharge. CM working hard to secure placement Code Status: Full Decision Maker: Guardian Sister Bettina Mason, contact information in Facesheet ABIMBOLA GOLDSTEIN MD [facility] Medicine Pager [phone] IPI Certification I certify that I am a D-H credentialed attending provider with admitting privileges and that the patient meets or has met medical necessity to require an inpatient IPI level of care meeting a minimumof two midnights or is on the [facility] inpatient only procedure list (status C) due to: the patient has met Inpatient IPI criteria and is awaiting rehabilitation or half-way facility placement withactive referrals in process . * Shruti Lozoya RN - 02/25/2018 4:52 AM EDT 02/24/18-02/25/18 [id number] Patient refusing to wear continuous masimo but does allow spot checks. The reason being the pt is not reliable to maintain safety with the cord continuously attached. Nursing will continue to monitor and will continue to spot check O2 levels with VS. * Abimbola Goldstein MD - 02/24/2018 10:37 AM EDT [facility] Medicine Attending Daily Progress Note Patient Description: 27 y.o. male admitted to the hospital medicine service for a left acetabular fracture sustained in the context of a seizure with low serum level of anti-seizure medication. 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 Active Hospital Problems Diagnosis ??? S/P ORIF left acetabulum fracture 09/04/2017 Dr. Lance ??? Diabetes insipidus ??? Panhypopituitarism Resolved Hospital Problems Diagnosis Date Resolved ??? Hypernatremia 01/24/2018 ??? Acute urinary retention 01/24/2018 ??? Postoperative anemia due to acute blood loss 12/09/2017 Active Non-Hospital Problems Diagnosis ??? Seizure disorder ??? Insomnia ??? Blind ??? CVA (cerebral vascular accident) ??? Urinary incontinence Interval Events No episodes of agitation. Offers no complaints. Physical Exam Vital Signs Temp: 36.6 ??C (97.9 ??F) Temp src: Oral Heart Rate: 86 Heart Rate Source: Monitor Resp: 15 BP: 119/82 MAP (NBP): 89 mmHg BP Method: Automatic BP Location: Left arm Patient Position: Lying SpO2: 97 % O2 Flow Rate (L/min): 0 L/min O2 Device: None (Room air) General: NAD HEENT: Moist mucous membranes Neck: No jugular venous distention Cor: Normal rate, regular rhythm, s1/s2 present Lungs: Clear to auscultation anterior medellin Abdomen: Soft, non-tender, non-distended; bowel sounds (+) Extremities: warm, no LE edema Skin: no rash; warm, dry Neuro: Appears to be cognitively at baseline Fluid Balance: Intake/Output Summary (Last 24 hours) at 02/24/18 1037 Last data filed at 02/24/18 0822 Gross per 24 hour Intake 2690 ml Output 1700 ml Net 990 ml Last Weight: 98.9 kg (218 lb 1.6 oz) Admission Weight: 86.64 kg Pertinent Labs Recent Labs 02/24/18 0525 02/23/18 0910 02/20/18 0538 NA 146* 150* 142 K 3.5 3.9 3.4* CL 106 111* 106 CO2 27 24 24 BUN 22* 19 15 CREATININE 0.79* 0.79* 0.68* Recent Labs 02/24/18 0525 02/23/18 0910 02/20/18 0538 CALCIUM 9.7 10.3 9.7 Microbiology None recent Radiology & Studies in Last 24 Hours None Assessment and Plan 27 year old male with complex past medical history including guillen hypotpituitarism, cognitive impairment, seizure disorder, who presented in August with a seizure and associated left acetabular fracture in the context of osteopenia from chronic steroid use, status post operative repair September 04. His subsequent hospital course has been notable for recurrent hypernatremia - now on a stable dose of desmopressin - and urinary retention, now resolved. He is medically stable for discharge and awaiting a safe disposition. Appreciate case management efforts in this regard. If recurrent issues with hypernatremia arise, we will plan to liberalize fluid restriction rather than alter desmopressin dosing. #Left acetabular fracture, status post operative repair 09/04/17 --Weight bearing as tolerated since 11/21 --Expert orthopedics recommendations appreciated, no follow up planned --Acetaminophen, ibuprofen PRNs --Intermittently cooperative with rehabilitation team, continue to encourage PT/OT as able #Cognitive impairment with emotional disturbance --At baseline per caregiver and prior providers --Continue quetiapine scheduled and PRN --Continue trazodone, melatonin --Delirium precautions and non-pharmacologic interventions #Guillen-hypopituitarism #Diabetes insipidus #Hypothyroidism #Adrenal insufficiency #Hypogonadism #Hypernatremia --Continue present dosing of desmopressin, hydrocortisone, levothyroxine, testosterone -- BMP check weekly, next check on 02/23 AM labs- Na 146: liberalized fluid restriction to 4L and encourage increased oral hydration today. Repeat Na later this wk --cont desmopressin, levothyroxine and hydrocortisone dosing all adjusted during hospitalization --Endocrinology recommendations appreciated --No indication for either GI or pneumocystis prophylaxis on basis of low total daily steroid dose (~7.5 mg prednisone equivalent) #Seizure disorder --Zonisamide level low on admission, re-loaded per Neurology and home dose increased --Continue zonisamide 200 mg daily #Urinary retention, now resolved --PRN bladder scan/straight catheterization intermittently #Low bone mineral density --Calcium/Vitamin D supplementation --Initial injury occurred in context of seizure rather than pathologic fracture from low density --Endocrinology to consider bisphosphonate as oupatient #Fractured left lower molar --Non-urgent extraction as outpatient #FEN/PPx/Dispo Fluids: oral ad mulu Electrolytes: as above Nutrition: regular diet DVT PPx: ambulation, sequential compression devices GI PPx: not indicated Disposition: awaiting placement, medically ready for discharge. CM working hard to secure placement Code Status: Full Decision Maker: Guardian Sister Bettina Mason, contact information in Facesheet ABIMBOLA GOLDSTEIN MD [facility] Medicine Pager [phone] IPI Certification I certify that I am a D-H credentialed attending provider with admitting privileges and that the patient meets or has met medical necessity to require an inpatient IPI level of care meeting a minimumof two midnights or is on the CMS inpatient only procedure list (status C) due to: the patient has met Inpatient IPI criteria and is awaiting rehabilitation or half-way facility placement withactive referrals in process . * Shruti Lozoya RN - 02/24/2018 4:48 AM EDT 02/23/18-02/24/18 [id number] Patient refusing to wear continuous masimo. The reason being agitation of pt when wearing it, safety issues. Pt does allow spot checks with VS. Nursing actions taken during this shift to address patient???s refusal included continued educationabout importance of care, importance of O2 monitoring. Will inform MD of any changes, * Abimbola Goldstein MD - 02/23/2018 9:12 AM EDT Hospital Medicine Attending Daily Progress Note Patient Description: 27 y.o. male admitted to the hospital medicine service for a left acetabular fracture sustained in the context of a seizure with low serum level of anti-seizure medication. 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 Active Hospital Problems Diagnosis ??? S/P ORIF left acetabulum fracture 09/04/2017 Dr. Lance ??? Diabetes insipidus ??? Panhypopituitarism Resolved Hospital Problems Diagnosis Date Resolved ??? Hypernatremia 01/24/2018 ??? Acute urinary retention 01/24/2018 ??? Postoperative anemia due to acute blood loss 12/09/2017 Active Non-Hospital Problems Diagnosis ??? Seizure disorder ??? Insomnia ??? Blind ??? CVA (cerebral vascular accident) ??? Urinary incontinence Interval Events Did require 1 dose PRN seroquel for agitaiton Offers no complaints. Physical Exam Vital Signs Temp: 36.6 ??C (97.9 ??F) Temp src: Oral Heart Rate: (!) 111 Heart Rate Source: Monitor Resp: 20 BP: 149/89 MAP (NBP): 99 mmHg BP Method: Automatic BP Location: Left arm Patient Position: Lying SpO2: 97 % O2 Flow Rate (L/min): 0 L/min O2 Device: None (Room air) General: NAD HEENT: Moist mucous membranes Neck: No jugular venous distention Cor: Normal rate, regular rhythm, s1/s2 present Lungs: Clear to auscultation anterior medellin Abdomen: Soft, non-tender, non-distended; bowel sounds (+) Extremities: warm, no LE edema Skin: no rash; warm, dry Neuro: Appears to be cognitively at baseline Fluid Balance: Intake/Output Summary (Last 24 hours) at 02/23/18 0912 Last data filed at 02/23/18 0834 Gross per 24 hour Intake 2075 ml Output 2825 ml Net -750 ml Last Weight: 98.9 kg (218 lb 1.6 oz) Admission Weight: 86.64 kg Pertinent Labs Recent Labs 02/20/18 0538 02/17/18 1129 02/16/18 1355 NA 142 144 143 K 3.4* 4.0 3.7 CL 106 105 105 CO2 24 20* 24 BUN 15 17 20 CREATININE 0.68* 0.78* 0.83 Recent Labs 02/20/18 0538 02/17/18 1129 02/16/18 1355 CALCIUM 9.7 9.7 9.3 Microbiology None recent Radiology & Studies in Last 24 Hours None Assessment and Plan 27 year old male with complex past medical history including guillen hypotpituitarism, cognitive impairment, seizure disorder, who presented in August with a seizure and associated left acetabular fracture in the context of osteopenia from chronic steroid use, status post operative repair September 04. His subsequent hospital course has been notable for recurrent hypernatremia - now on a stable dose of desmopressin - and urinary retention, now resolved. He is medically stable for discharge and awaiting a safe disposition. Appreciate case management efforts in this regard. If recurrent issues with hypernatremia arise, we will plan to liberalize fluid restriction rather than alter desmopressin dosing. #Left acetabular fracture, status post operative repair 09/04/17 --Weight bearing as tolerated since 11/21 --Expert orthopedics recommendations appreciated, no follow up planned --Acetaminophen, ibuprofen PRNs --Intermittently cooperative with rehabilitation team, continue to encourage PT/OT as able #Cognitive impairment with emotional disturbance --At baseline per caregiver and prior providers --Continue quetiapine scheduled and PRN --Continue trazodone, melatonin --Delirium precautions and non-pharmacologic interventions #Guillen-hypopituitarism #Diabetes insipidus #Hypothyroidism #Adrenal insufficiency #Hypogonadism #Hypernatremia --Continue present dosing of desmopressin, hydrocortisone, levothyroxine, testosterone -- BMP check weekly, next check on 02/23 AM labs- Na 150: will liberalize fluid restriction to 4L and encourage increased oral hydration today. Repeat Na 02/24 --cont desmopressin, levothyroxine and hydrocortisone dosing all adjusted during hospitalization --Encourage oral intake, 2 to 3 liters daily (upper limit 3.2L) --Endocrinology recommendations appreciated --No indication for either GI or pneumocystis prophylaxis on basis of low total daily steroid dose (~7.5 mg prednisone equivalent) #Seizure disorder --Zonisamide level low on admission, re-loaded per Neurology and home dose increased --Continue zonisamide 200 mg daily #Urinary retention, now resolved --PRN bladder scan/straight catheterization intermittently #Low bone mineral density --Calcium/Vitamin D supplementation --Initial injury occurred in context of seizure rather than pathologic fracture from low density --Endocrinology to consider bisphosphonate as oupatient #Fractured left lower molar --Non-urgent extraction as outpatient #FEN/PPx/Dispo Fluids: oral ad mulu Electrolytes: as above Nutrition: regular diet DVT PPx: ambulation, sequential compression devices GI PPx: not indicated Disposition: awaiting placement, medically ready for discharge. LUCAS working hard to secure placement Code Status: Full Decision Maker: Guardian Sister Bettina Mason, contact information in Facesheet ABIMBOLA GOLDSTEIN MD [facility] Medicine Pager [phone] IPI Certification I certify that I am a D-H credentialed attending provider with admitting privileges and that the patient meets or has met medical necessity to require an inpatient IPI level of care meeting a minimumof two midnights or is on the [facility] inpatient only procedure list (status C) due to: the patient has met Inpatient IPI criteria and is awaiting rehabilitation or half-way facility placement withactive referrals in process . * Abimbola Goldstein MD - 02/22/2018 8:45 AM EDT [facility] Medicine Attending Daily Progress Note Patient Description: 27 y.o. male admitted to the hospital medicine service for a left acetabular fracture sustained in the context of a seizure with low serum level of anti-seizure medication. 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 Active Hospital Problems Diagnosis ??? S/P ORIF left acetabulum fracture 09/04/2017 Dr. Lance ??? Diabetes insipidus ??? Panhypopituitarism Resolved Hospital Problems Diagnosis Date Resolved ??? Hypernatremia 01/24/2018 ??? Acute urinary retention 01/24/2018 ??? Postoperative anemia due to acute blood loss 12/09/2017 Active Non-Hospital Problems Diagnosis ??? Seizure disorder ??? Insomnia ??? Blind ??? CVA (cerebral vascular accident) ??? Urinary incontinence Interval Events No agitation last night and no need for PRN seroquel. Offers no complaints. Physical Exam Temp: [36.6 ??C (97.9 ??F)] Heart Rate: [109-130] Resp: [20-22] BP: (119-149)/(79-94) SpO2: [97 %-98 %] Heart Rate from SPO2: [109 bpm-114 bpm] General: NAD HEENT: Moist mucous membranes Neck: No jugular venous distention Cor: Normal rate, regular rhythm, s1/s2 present Lungs: Clear to auscultation anterior medellin Abdomen: Soft, non-tender, non-distended; bowel sounds (+) Extremities: warm, no LE edema Skin: no rash; warm, dry Neuro: Appears to be cognitively at baseline Fluid Balance: Intake/Output Summary (Last 24 hours) at 02/22/18 0845 Last data filed at 02/22/18 0618 Gross per 24 hour Intake 2080 ml Output 2700 ml Net -620 ml Last Weight: 98.9 kg (218 lb 1.6 oz) Admission Weight: 86.64 kg Pertinent Labs Recent Labs 02/20/18 0538 02/17/18 1129 02/16/18 1355 NA 142 144 143 K 3.4* 4.0 3.7 CL 106 105 105 CO2 24 20* 24 BUN 15 17 20 CREATININE 0.68* 0.78* 0.83 Recent Labs 02/20/18 0538 02/17/18 1129 02/16/18 1355 CALCIUM 9.7 9.7 9.3 Microbiology None recent Radiology & Studies in Last 24 Hours None Assessment and Plan 27 year old male with complex past medical history including guillen hypotpituitarism, cognitive impairment, seizure disorder, who presented in August with a seizure and associated left acetabular fracture in the context of osteopenia from chronic steroid use, status post operative repair September 04. His subsequent hospital course has been notable for recurrent hypernatremia - now on a stable dose of desmopressin - and urinary retention, now resolved. He is medically stable for discharge and awaiting a safe disposition. Appreciate case management efforts in this regard. If recurrent issues with hypernatremia arise, we will plan to liberalize fluid restriction rather than alter desmopressin dosing. #Left acetabular fracture, status post operative repair 09/04/17 --Weight bearing as tolerated since 11/21 --Expert orthopedics recommendations appreciated, no follow up planned --Acetaminophen, ibuprofen PRNs --Intermittently cooperative with rehabilitation team, continue to encourage PT/OT as able #Cognitive impairment with emotional disturbance --At baseline per caregiver and prior providers --Continue quetiapine scheduled and PRN --Continue trazodone, melatonin --Delirium precautions and non-pharmacologic interventions #Guillen-hypopituitarism #Diabetes insipidus #Hypothyroidism #Adrenal insufficiency #Hypogonadism --Continue present dosing of desmopressin, hydrocortisone, levothyroxine, testosterone -- BMP check weekly, next check on 02/23 AM labs --cont desmopressin, levothyroxine and hydrocortisone dosing all adjusted during hospitalization --Encourage oral intake, 2 to 3 liters daily (upper limit 3.2L) --Endocrinology recommendations appreciated --No indication for either GI or pneumocystis prophylaxis on basis of low total daily steroid dose (~7.5 mg prednisone equivalent) #Seizure disorder --Zonisamide level low on admission, re-loaded per Neurology and home dose increased --Continue zonisamide 200 mg daily #Urinary retention, now resolved --PRN bladder scan/straight catheterization intermittently #Low bone mineral density --Calcium/Vitamin D supplementation --Initial injury occurred in context of seizure rather than pathologic fracture from low density --Endocrinology to consider bisphosphonate as oupatient #Fractured left lower molar --Non-urgent extraction as outpatient #FEN/PPx/Dispo Fluids: oral ad mulu Electrolytes: as above Nutrition: regular diet DVT PPx: ambulation, sequential compression devices GI PPx: not indicated Disposition: awaiting placement, medically ready for discharge. CM working hard to secure placement Code Status: Full Decision Maker: Guardian Sister Bettina Mason, contact information in Facesheet ABIMBOLA GOLDSTEIN MD [facility] Medicine Pager [phone] IPI Certification I certify that I am a D-H credentialed attending provider with admitting privileges and that the patient meets or has met medical necessity to require an inpatient IPI level of care meeting a minimumof two midnights or is on the [facility] inpatient only procedure list (status C) due to: the patient has met Inpatient IPI criteria and is awaiting rehabilitation or half-way facility placement withactive referrals in process . * Abimbola Goldstein MD - 02/21/2018 10:33 AM EDT [facility] Medicine Attending Daily Progress Note Patient Description: 27 y.o. male admitted to the hospital medicine service for a left acetabular fracture sustained in the context of a seizure with low serum level of anti-seizure medication. 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 Active Hospital Problems Diagnosis ??? S/P ORIF left acetabulum fracture 09/04/2017 Dr. Lance ??? Diabetes insipidus ??? Panhypopituitarism Resolved Hospital Problems Diagnosis Date Resolved ??? Hypernatremia 01/24/2018 ??? Acute urinary retention 01/24/2018 ??? Postoperative anemia due to acute blood loss 12/09/2017 Active Non-Hospital Problems Diagnosis ??? Seizure disorder ??? Insomnia ??? Blind ??? CVA (cerebral vascular accident) ??? Urinary incontinence Interval Events Was a bit agitated last night and received a PRN dose of seroquel. Physical Exam Temp: [36.5 ??C (97.7 ??F)] Heart Rate: [90-130] Resp: [28] BP: (129-148)/(77-89) SpO2: [97 %] Heart Rate from SPO2: [100 bpm] General: NAD HEENT: Moist mucous membranes Neck: No jugular venous distention Cor: Normal rate, regular rhythm, s1/s2 present Lungs: Clear to auscultation anterior medellin Abdomen: Soft, non-tender, non-distended; bowel sounds (+) Extremities: warm, no LE edema Skin: no rash; warm, dry Neuro: Appears to be cognitively at baseline Fluid Balance: Intake/Output Summary (Last 24 hours) at 02/21/18 1033 Last data filed at 02/21/18 0700 Gross per 24 hour Intake 840 ml Output 500 ml Net 340 ml Last Weight: 98.9 kg (218 lb 1.6 oz) Admission Weight: 86.64 kg Pertinent Labs Recent Labs 02/20/18 0538 02/17/18 1129 02/16/18 1355 NA 142 144 143 K 3.4* 4.0 3.7 CL 106 105 105 CO2 24 20* 24 BUN 15 17 20 CREATININE 0.68* 0.78* 0.83 Recent Labs 02/20/18 0538 02/17/18 1129 02/16/18 1355 CALCIUM 9.7 9.7 9.3 Microbiology None recent Radiology & Studies in Last 24 Hours None Assessment and Plan 27 year old male with complex past medical history including guillen hypotpituitarism, cognitive impairment, seizure disorder, who presented in August with a seizure and associated left acetabular fracture in the context of osteopenia from chronic steroid use, status post operative repair September 04. His subsequent hospital course has been notable for recurrent hypernatremia - now on a stable dose of desmopressin - and urinary retention, now resolved. He is medically stable for discharge and awaiting a safe disposition. Appreciate case management efforts in this regard. If recurrent issues with hypernatremia arise, we will plan to liberalize fluid restriction rather than alter desmopressin dosing. #Left acetabular fracture, status post operative repair 09/04/17 --Weight bearing as tolerated since 11/21 --Expert orthopedics recommendations appreciated, no follow up planned --Acetaminophen, ibuprofen PRNs --Intermittently cooperative with rehabilitation team, continue to encourage PT/OT as able #Cognitive impairment with emotional disturbance --At baseline per caregiver and prior providers --Continue quetiapine scheduled and PRN --Continue trazodone, melatonin --Delirium precautions and non-pharmacologic interventions #Guillen-hypopituitarism #Diabetes insipidus #Hypothyroidism #Adrenal insufficiency #Hypogonadism --Continue present dosing of desmopressin, hydrocortisone, levothyroxine, testosterone -- BMP check weekly, next check on 02/23 AM labs --cont desmopressin, levothyroxine and hydrocortisone dosing all adjusted during hospitalization --Encourage oral intake, 2 to 3 liters daily (upper limit 3.2L) --Endocrinology recommendations appreciated --No indication for either GI or pneumocystis prophylaxis on basis of low total daily steroid dose (~7.5 mg prednisone equivalent) #Seizure disorder --Zonisamide level low on admission, re-loaded per Neurology and home dose increased --Continue zonisamide 200 mg daily #Urinary retention, now resolved --PRN bladder scan/straight catheterization intermittently #Low bone mineral density --Calcium/Vitamin D supplementation --Initial injury occurred in context of seizure rather than pathologic fracture from low density --Endocrinology to consider bisphosphonate as oupatient #Fractured left lower molar --Non-urgent extraction as outpatient #FEN/PPx/Dispo Fluids: oral ad mulu Electrolytes: as above Nutrition: regular diet DVT PPx: ambulation, sequential compression devices GI PPx: not indicated Disposition: awaiting placement, medically ready for discharge. CM working hard to secure placement Code Status: Full Decision Maker: Guardian Sister Bettina Mason, contact information in Facesheet ABIMBOLA GOLDSTEIN MD [facility] Medicine Pager [phone] IPI Certification I certify that I am a D-H credentialed attending provider with admitting privileges and that the patient meets or has met medical necessity to require an inpatient IPI level of care meeting a minimumof two midnights or is on the CMS inpatient only procedure list (status C) due to: the patient has met Inpatient IPI criteria and is awaiting rehabilitation or half-way facility placement withactive referrals in process . * Debbie Hale RN - 02/21/2018 3:23 AM EDT Pt oriented to self and place. VSS. Pt agitated for until about 2300.Pt continues to have bouts of incontinence. Pt uncooperative with care initially, but then allowed care. PRN Seroquel given with good effect. Pt has one on one sitter at bedside. Pt safety maintained. Will continue to monitor pt. * Tricia Gerber RN - 02/20/2018 4:54 PM EDT Case reviewed in eDH and with interdisciplinary team. Patient is medically ready for discharge. Currently pursuing placement. Have been in contact with [facility]. Per email on 02/18 looking at possible rental property Friday. We also have an opening in one of our group homes that may beable to meet his needs, however the director is on vacation until Friday so I cannot make the referral until then.. OCM management is also working with Carissa Posdaa Chief of Intellectual/Developmental Disabilities Services [facility] Services. Have requested to set-up weekly review meetings. Left voice mail for Level 2 reviewer at [facility] office [phone]. Request call back to discuss case. Case management will continue to follow and assist with discharge planning needs. Tricia Gerber RN Case Homemaker Companion of Care Management [email or web address] Pager: [phone] * Maldonado Salazar MD - 02/20/2018 12:09 PM EDT Hospital Medicine Attending Daily Progress Note Patient Description: 27 y.o. male admitted to the hospital medicine service for a left acetabular fracture sustained in the context of a seizure with low serum level of anti-seizure medication. 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 Active Hospital Problems Diagnosis ??? S/P ORIF left acetabulum fracture 09/04/2017 Dr. Lance ??? Diabetes insipidus ??? Panhypopituitarism Resolved Hospital Problems Diagnosis Date Resolved ??? Hypernatremia 01/24/2018 ??? Acute urinary retention 01/24/2018 ??? Postoperative anemia due to acute blood loss 12/09/2017 Active Non-Hospital Problems Diagnosis ??? Seizure disorder ??? Insomnia ??? Blind ??? CVA (cerebral vascular accident) ??? Urinary incontinence Interval Events No acute events. Reports he's bored today. Physical Exam Temp: [37 ??C (98.6 ??F)] Heart Rate: [95-99] Resp: [20] BP: (118-127)/(78) SpO2: [95 %] Heart Rate from SPO2: -- General: Alert, interactive, responsive to questions, seated in bed HEENT: Moist mucous membranes Neck: No jugular venous distention Cor: Normal rate, regular rhythm, s1/s2 present Lungs: Clear to auscultation anterior medellin Abdomen: Soft, non-tender, non-distended; bowel sounds (+) Extremities: warm, no edema Skin: no rash Neuro: Appears to be at cognitive baseline Fluid Balance: Intake/Output Summary (Last 24 hours) at 02/20/18 1209 Last data filed at 02/20/18 0200 Gross per 24 hour Intake 1310 ml Output 1350 ml Net -40 ml Last Weight: 98.9 kg (218 lb 1.6 oz) Admission Weight: 86.64 kg Pertinent Labs Recent Labs 02/20/18 0538 02/17/18 1129 02/16/18 1355 NA 142 144 143 K 3.4* 4.0 3.7 CL 106 105 105 CO2 24 20* 24 BUN 15 17 20 CREATININE 0.68* 0.78* 0.83 Recent Labs 02/20/18 0538 02/17/18 1129 02/16/18 1355 CALCIUM 9.7 9.7 9.3 Microbiology None recent Radiology & Studies in Last 24 Hours None Assessment and Plan 27 year old male with complex past medical history including guillen hypotpituitarism, cognitive impairment, seizure disorder, who presented in August with a seizure and associated left acetabular fracture in the context of osteopenia from chronic steroid use, status post operative repair September 04. His subsequent hospital course has been notable for recurrent hypernatremia - now on a stable dose of desmopressin - and urinary retention, now resolved. He is medically stable for discharge and awaiting a safe disposition. Appreciate case management efforts in this regard. If recurrent issues with hypernatremia arise, we will plan to liberalize fluid restriction rather than alter desmopressin dosing. #Left acetabular fracture, status post operative repair 09/04/17 --Weight bearing as tolerated since 11/21 --Expert orthopedics recommendations appreciated, no follow up planned --Acetaminophen, ibuprofen PRNs --Intermittently cooperative with rehabilitation team, continue to encourage PT/OT as able #Cognitive impairment with emotional disturbance --At baseline per caregiver and prior providers --Continue quetiapine scheduled and PRN --Continue trazodone, melatonin --Delirium precautions and non-pharmacologic interventions #Guillen-hypopituitarism #Diabetes insipidus #Hypothyroidism #Adrenal insufficiency #Hypogonadism --Continue present dosing of desmopressin, hydrocortisone, levothyroxine, testosterone --scale back BMP check to weekly, next check on 02/23 AM labs --n.b. desmopressin, levothyroxine and hydrocortisone dosing all adjusted during hospitalization --Encourage oral intake, 2 to 3 liters daily (upper limit 3.2L) --Expert endocrinology recommendations appreciated --No indication for either GI or pneumocystis prophylaxis on basis of low total daily steroid dose (~7.5 mg prednisone equivalent) #Seizure disorder --Zonisamide level low on admission, re-loaded with expert neurology guidance and home dose increased --Continue zonisamide at present dosing (200 mg) #Urinary retention, now resolved --PRN bladder scan/straight catheterization intermittently #Low bone mineral density --Calcium/Vitamin D supplementation --Initial injury occurred in context of seizure rather than pathologic fracture from low density --Endocrinology to consider bisphosphonate as oupatient #Fractured left lower molar --Non-urgent extraction pending availability #FEN/PPx/Dispo Fluids: oral ad mulu Electrolytes: as above Nutrition: regular diet DVT PPx: ambulation, sequential compression devices GI PPx: not indicated Disposition: awaiting placement, medically ready for discharge Code Status: Full Decision Maker: Guardian Sister Bettina Mason, contact information in Facesheet Maldonado Salazar MD [facility] Medicine Pager [phone] IPI Certification I certify that I am a D-H credentialed attending provider with admitting privileges and that the patient meets or has met medical necessity to require an inpatient IPI level of care meeting a minimumof two midnights or is on the CMS inpatient only procedure list (status C) due to: the patient has met Inpatient IPI criteria and is awaiting rehabilitation or half-way facility placement withactive referrals in process . * Maldonado Salazar MD - 02/19/2018 2:02 PM EDT [facility] Medicine Attending Daily Progress Note Patient Description: 27 y.o. male admitted to the hospital medicine service for a left acetabular fracture sustained in the context of a seizure with low serum level of anti-seizure medication. 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 Active Hospital Problems Diagnosis ??? S/P ORIF left acetabulum fracture 09/04/2017 Dr. Lance ??? Diabetes insipidus ??? Panhypopituitarism Resolved Hospital Problems Diagnosis Date Resolved ??? Hypernatremia 01/24/2018 ??? Acute urinary retention 01/24/2018 ??? Postoperative anemia due to acute blood loss 12/09/2017 Active Non-Hospital Problems Diagnosis ??? Seizure disorder ??? Insomnia ??? Blind ??? CVA (cerebral vascular accident) ??? Urinary incontinence Interval Events No acute events. No complaints today, as typical, reports he feels awesome. Walked around unit this morning (thirdday in a row!). Physical Exam Temp: [36.4 ??C (97.5 ??F)-36.6 ??C (97.9 ??F)] Heart Rate: [81-106] Resp: [18] BP: (132-150)/(43-83) SpO2: [97 %-99 %] Heart Rate from SPO2: [72 bpm-110 bpm] General: Alert, interactive, responsive to questions, seated in bed HEENT: Moist mucous membranes Neck: No jugular venous distention Cor: Normal rate, regular rhythm, s1/s2 present Lungs: Clear to auscultation anterior medellin Abdomen: Soft, non-tender, non-distended; bowel sounds (+) Extremities: warm, no edema Skin: no rash Neuro: Appears to be at cognitive baseline Fluid Balance: Intake/Output Summary (Last 24 hours) at 02/19/18 1403 Last data filed at 02/19/18 1200 Gross per 24 hour Intake 2100 ml Output 650 ml Net 1450 ml Last Weight: 98.9 kg (218 lb 1.6 oz) Admission Weight: 86.64 kg Pertinent Labs Recent Labs 02/17/18 1129 02/16/18 1355 02/15/18 0937 NA 144 143 150* K 4.0 3.7 4.0 CL 105 105 111* CO2 20* 24 21* BUN 17 20 16 CREATININE 0.78* 0.83 0.88 Recent Labs 02/17/18 1129 02/16/18 1355 02/15/18 0937 CALCIUM 9.7 9.3 9.9 Microbiology None recent Radiology & Studies in Last 24 Hours None Assessment and Plan 27 year old male with complex past medical history including guillen hypotpituitarism, cognitive impairment, seizure disorder, who presented in August with a seizure and associated left acetabular fracture in the context of osteopenia from chronic steroid use, status post operative repair September 04. His subsequent hospital course has been notable for recurrent hypernatremia - now on a stable dose of desmopressin - and urinary retention, now resolved. He is medically stable for discharge and awaiting a safe disposition. Appreciate case management efforts in this regard. If recurrent issues with hypernatremia arise, we will plan to liberalize fluid restriction rather than alter desmopressin dosing. #Left acetabular fracture, status post operative repair 09/04/17 --Weight bearing as tolerated since 11/21 --Expert orthopedics recommendations appreciated, no follow up planned --Acetaminophen, ibuprofen PRNs --Intermittently cooperative with rehabilitation team, continue to encourage PT/OT as able #Cognitive impairment with emotional disturbance --At baseline per caregiver and prior providers --Continue quetiapine scheduled and PRN --Continue trazodone, melatonin --Delirium precautions and non-pharmacologic interventions #Guillen-hypopituitarism #Diabetes insipidus #Hypothyroidism #Adrenal insufficiency #Hypogonadism --Continue present dosing of desmopressin, hydrocortisone, levothyroxine, testosterone --q72 hr BMP check (next check morning of 02/20) --n.b. desmopressin, levothyroxine and hydrocortisone dosing all adjusted during hospitalization --Encourage oral intake, 2 to 3 liters daily (upper limit 3.2L) --Expert endocrinology recommendations appreciated --No indication for either GI or pneumocystis prophylaxis on basis of low total daily steroid dose (~7.5 mg prednisone equivalent) #Seizure disorder --Zonisamide level low on admission, re-loaded with expert neurology guidance and home dose increased --Continue zonisamide at present dosing (200 mg) #Urinary retention, now resolved --PRN bladder scan/straight catheterization intermittently #Low bone mineral density --Calcium/Vitamin D supplementation --Initial injury occurred in context of seizure rather than pathologic fracture from low density --Endocrinology to consider bisphosphonate as oupatient #Fractured left lower molar --Non-urgent extraction pending availability #FEN/PPx/Dispo Fluids: oral ad mulu Electrolytes: as above Nutrition: regular diet DVT PPx: ambulation, sequential compression devices GI PPx: not indicated Disposition: awaiting placement, medically ready for discharge Code Status: Full Decision Maker: Guardian Sister Bettina Mason, contact information in Facesheet Maldonado Salazar MD [facility] Medicine Pager [phone] IPI Certification I certify that I am a D-H credentialed attending provider with admitting privileges and that the patient meets or has met medical necessity to require an inpatient IPI level of care meeting a minimumof two midnights or is on the [facility] inpatient only procedure list (status C) due to: the patient has met Inpatient IPI criteria and is awaiting rehabilitation or half-way facility placement withactive referrals in process . * Debbie Keller DT - 02/19/2018 12:52 PM EDT Nutrition Services - Follow-up Note Miguel Angel Mason : 1990 AGE: 27 y.o. Patient Active Problem List Diagnosis Date Noted ??? *Hospital-S/P ORIF left acetabulum fracture 09/04/2017 Dr. Lance 09/02/2017 ??? Hospital-Diabetes insipidus 09/03/2017 Chronic ??? 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 Seizure disorder 09/03/2017 ??? Insomnia 09/03/2017 ??? Blind 09/03/2017 ??? CVA (cerebral vascular accident) 09/03/2017 ??? Urinary incontinence 09/03/2017 Reason for Nutrition Intervention: Follow-up Diet Order: Regular Appetite: Very Good- per nursing Food allergies: NKFA Chewing/Swallowing difficulty: None noted- per nursing Ht Readings from Last 3 Encounters: 09/07/17 177.8 cm (5' 10) Wt Readings from Last 3 Encounters: 01/30/18 98.9 kg (218 lb 1.6 oz) Body mass index is 31.29 kg/(m^2). Vitamins/Minerals: Vitamin D3, Tums noted. Assessment: Patient seen for nutrition follow up. Nursing reported a very good appetite stating, pt is a good eater and without difficulty chewing or swallowing. He is tolerating current diet without nausea or vomiting. Pt consistently consuming 100% PO intake of meals daily. Pt receiving menu choices daily for his meals. Pt receiving mid-morning snack of fruit cup, water, carrot and celery sticks. Per nursing continue to send snack as he is enjoying it. Nursing had no further nutritionalconcerns at this time. Please contact Food and Nutrition services with any questions or requests that may arise. Nutrition will continue to follow. Nutrition Plan: Continue current diet. No standard trays. Cut up all foods. Recommend Daily Multi Vitamins. Mid-morning snack: fruit cup, bottled water, 12 carrot sticks, 12 celery sticks. Encourage good po intake. Monitor weight. Support and encouragement provided. Nutrition services to follow thru hospital course unless consulted in the interim. ADAM Kaur * Debbie Hale RN - 02/19/2018 4:53 AM EDT Pt oriented to self and place only. Pt has been incontinent and restless. Pt has been yelling out off and on at beginning of shift. Pt received meds per MAR and has settled down and is resting quietly in bed with eyes closed. One to one sitter at bedside is helping with calming measures. Pt safety maintained, will continue to monitor pt. * Maldonado Salazar MD - 02/18/2018 2:13 PM EDT [facility] Medicine Attending Daily Progress Note Patient Description: 27 y.o. male admitted to the hospital medicine service for a left acetabular fracture sustained in the context of a seizure with low serum level of anti-seizure medication. 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 Active Hospital Problems Diagnosis ??? S/P ORIF left acetabulum fracture 09/04/2017 Dr. Lance ??? Diabetes insipidus ??? Panhypopituitarism Resolved Hospital Problems Diagnosis Date Resolved ??? Hypernatremia 01/24/2018 ??? Acute urinary retention 01/24/2018 ??? Postoperative anemia due to acute blood loss 12/09/2017 Active Non-Hospital Problems Diagnosis ??? Seizure disorder ??? Insomnia ??? Blind ??? CVA (cerebral vascular accident) ??? Urinary incontinence Interval Events No acute events. No complaints today, feels awesome. Walked around unit this morning. Physical Exam Temp: [36.6 ??C (97.9 ??F)-37.2 ??C (99 ??F)] Heart Rate: [94-108] Resp: [16-18] BP: (117-140)/(72-94) SpO2: [97 %-99 %] Heart Rate from SPO2: [92 bpm-112 bpm] General: Alert, interactive, responsive to questions, seated in bed HEENT: Moist mucous membranes Neck: No jugular venous distention Cor: Normal rate, regular rhythm, s1/s2 present Lungs: Clear to auscultation anterior medellin Abdomen: Soft, non-tender, non-distended; bowel sounds (+) Extremities: warm, no edema Skin: no rash Neuro: Appears to be at cognitive baseline Fluid Balance: Intake/Output Summary (Last 24 hours) at 02/18/18 1416 Last data filed at 02/18/18 1347 Gross per 24 hour Intake 3490 ml Output 3275 ml Net 215 ml Last Weight: 98.9 kg (218 lb 1.6 oz) Admission Weight: 86.64 kg Pertinent Labs Recent Labs 02/17/18 1129 02/16/18 1355 02/15/18 0937 NA 144 143 150* K 4.0 3.7 4.0 CL 105 105 111* CO2 20* 24 21* BUN 17 20 16 CREATININE 0.78* 0.83 0.88 Recent Labs 02/17/18 1129 02/16/18 1355 02/15/18 0937 CALCIUM 9.7 9.3 9.9 Microbiology None recent Radiology & Studies in Last 24 Hours None Assessment and Plan 27 year old male with complex past medical history including guillen hypotpituitarism, cognitive impairment, seizure disorder, who presented in August with a seizure and associated left acetabular fracture in the context of osteopenia from chronic steroid use, status post operative repair September 04. His subsequent hospital course has been notable for recurrent hypernatremia - now on a stable dose of desmopressin - and urinary retention, now resolved. He is medically stable for discharge and awaiting a safe disposition. Appreciate case management efforts in this regard. Sodium was elevated for twodays to ~150 and now back down to 143 without any clear explanation. Scale back BMP monitoring to q72 hours. If recurrent issues with hypernatremia arise, we will plan to liberalize fluid restriction. #Left acetabular fracture, status post operative repair 09/04/17 --Weight bearing as tolerated since 11/21 --Expert orthopedics recommendations appreciated, no follow up planned --Acetaminophen, ibuprofen PRNs --Intermittently cooperative with rehabilitation team, continue to encourage PT/OT as able #Cognitive impairment with emotional disturbance --At baseline per caregiver and prior providers --Continue quetiapine scheduled and PRN --Continue trazodone, melatonin --Delirium precautions and non-pharmacologic interventions #Guillen-hypopituitarism #Diabetes insipidus #Hypothyroidism #Adrenal insufficiency #Hypogonadism --Continue present dosing of desmopressin, hydrocortisone, levothyroxine, testosterone --q72 hr BMP check (next check morning of 02/20) --n.b. desmopressin, levothyroxine and hydrocortisone dosing all adjusted during hospitalization --Encourage oral intake, 2 to 3 liters daily (upper limit 3.2L) --Expert endocrinology recommendations appreciated --No indication for either GI or pneumocystis prophylaxis on basis of low total daily steroid dose (~7.5 mg prednisone equivalent) #Seizure disorder --Zonisamide level low on admission, re-loaded with expert neurology guidance and home dose increased --Continue zonisamide at present dosing (200 mg) #Urinary retention, now resolved --PRN bladder scan/straight catheterization intermittently #Low bone mineral density --Calcium/Vitamin D supplementation --Initial injury occurred in context of seizure rather than pathologic fracture from low density --Endocrinology to consider bisphosphonate as oupatient #Fractured left lower molar --Non-urgent extraction pending availability #FEN/PPx/Dispo Fluids: oral ad mulu Electrolytes: as above Nutrition: regular diet DVT PPx: ambulation, sequential compression devices GI PPx: not indicated Disposition: awaiting placement, medically ready for discharge Code Status: Full Decision Maker: Guardian Sister Bettina Mason, contact information in Facesheet Malodnado Salazar MD [facility] Medicine Pager [phone] IPI Certification I certify that I am a D-H credentialed attending provider with admitting privileges and that the patient meets or has met medical necessity to require an inpatient IPI level of care meeting a minimumof two midnights or is on the [facility] inpatient only procedure list (status C) due to: the patient has met Inpatient IPI criteria and is awaiting rehabilitation or half-way facility placement withactive referrals in process . * Tricia Gerber RN - 02/17/2018 5:15 PM EDT Sent email message to Bhakti Riojas- Senior Belt Fixer with [facility] [employer] [phone].??Request update on status of search for a home. ? Tricia Gerber RN Case Homemaker Companion of Care Management [email or web address] ?Pager: [phone] * Maldonado Salazar MD - 02/17/2018 2:34 PM EDT Hospital Medicine Attending Daily Progress Note Patient Description: 27 y.o. male admitted to the hospital medicine service for a left acetabular fracture sustained in the context of a seizure with low serum level of anti-seizure medication. 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 Active Hospital Problems Diagnosis ??? S/P ORIF left acetabulum fracture 09/04/2017 Dr. Lance ??? Diabetes insipidus ??? Panhypopituitarism Resolved Hospital Problems Diagnosis Date Resolved ??? Hypernatremia 01/24/2018 ??? Acute urinary retention 01/24/2018 ??? Postoperative anemia due to acute blood loss 12/09/2017 Active Non-Hospital Problems Diagnosis ??? Seizure disorder ??? Insomnia ??? Blind ??? CVA (cerebral vascular accident) ??? Urinary incontinence Interval Events Required one PRN seroquel. No complaints today. Physical Exam Temp: [36.4 ??C (97.5 ??F)-36.6 ??C (97.9 ??F)] Heart Rate: [85-101] Resp: [16-18] BP: (112-126)/(64-73) SpO2: [97 %-99 %] Heart Rate from SPO2: [88 bpm] General: Alert, interactive, responsive to questions, seated in bed HEENT: Moist mucous membranes Neck: No jugular venous distention Cor: Normal rate, regular rhythm, s1/s2 present Lungs: Clear to auscultation anterior medellin Abdomen: Soft, non-tender, non-distended; bowel sounds (+) Extremities: warm, no edema Skin: no rash Neuro: Appears to be at cognitive baseline Fluid Balance: Intake/Output Summary (Last 24 hours) at 02/17/18 1434 Last data filed at 02/17/18 1352 Gross per 24 hour Intake 2410 ml Output 3050 ml Net -640 ml Last Weight: 98.9 kg (218 lb 1.6 oz) Admission Weight: 86.64 kg Pertinent Labs Recent Labs 02/17/18 1129 02/16/18 1355 02/15/18 0937 NA 144 143 150* K 4.0 3.7 4.0 CL 105 105 111* CO2 20* 24 21* BUN 17 20 16 CREATININE 0.78* 0.83 0.88 Recent Labs 02/17/18 1129 02/16/18 1355 02/15/18 0937 CALCIUM 9.7 9.3 9.9 Microbiology None recent Radiology & Studies in Last 24 Hours None Assessment and Plan 27 year old male with complex past medical history including guillen hypotpituitarism, cognitive impairment, seizure disorder, who presented in August with a seizure and associated left acetabular fracture in the context of osteopenia from chronic steroid use, status post operative repair September 04. His subsequent hospital course has been notable for recurrent hypernatremia - now on a stable dose of desmopressin - and urinary retention, now resolved. He is medically stable for discharge and awaiting a safe disposition. Appreciate case management efforts in this regard. Sodium was elevated for twodays to ~150 and now back down to 143 without any clear explanation. Scale back BMP monitoring to q72 hours. If recurrent issues with hypernatremia arise, we will plan to liberalize fluid restriction. #Left acetabular fracture, status post operative repair 09/04/17 --Weight bearing as tolerated since 11/21 --Expert orthopedics recommendations appreciated, no follow up planned --Acetaminophen, ibuprofen PRNs --Intermittently cooperative with rehabilitation team, continue to encourage PT/OT as able #Cognitive impairment with emotional disturbance --At baseline per caregiver and prior providers --Continue quetiapine scheduled and PRN --Continue trazodone, melatonin --Delirium precautions and non-pharmacologic interventions #Guillen-hypopituitarism #Diabetes insipidus #Hypothyroidism #Adrenal insufficiency #Hypogonadism --Continue present dosing of desmopressin, hydrocortisone, levothyroxine, testosterone --q72 hr BMP check --n.b. desmopressin, levothyroxine and hydrocortisone dosing all adjusted during hospitalization --Encourage oral intake, 2 to 3 liters daily (upper limit 3.2L) --Expert endocrinology recommendations appreciated --No indication for either GI or pneumocystis prophylaxis on basis of low total daily steroid dose (~7.5 mg prednisone equivalent) #Seizure disorder --Zonisamide level low on admission, re-loaded with expert neurology guidance and home dose increased --Continue zonisamide at present dosing (200 mg) #Urinary retention, now resolved --PRN bladder scan/straight catheterization intermittently #Low bone mineral density --Calcium/Vitamin D supplementation --Initial injury occurred in context of seizure rather than pathologic fracture from low density --Endocrinology to consider bisphosphonate as oupatient #Fractured left lower molar --Non-urgent extraction pending availability #FEN/PPx/Dispo Fluids: oral ad mulu Electrolytes: as above Nutrition: regular diet DVT PPx: ambulation, sequential compression devices GI PPx: not indicated Disposition: awaiting placement, medically ready for discharge Code Status: Full Decision Maker: Guardian Sister Bettina Mason, contact information in Facesheet Maldonado Salazar MD [facility] Medicine Pager [phone] IPI Certification I certify that I am a D-H credentialed attending provider with admitting privileges and that the patient meets or has met medical necessity to require an inpatient IPI level of care meeting a minimumof two midnights or is on the [facility] inpatient only procedure list (status C) due to: the patient has met Inpatient IPI criteria and is awaiting rehabilitation or half-way facility placement withactive referrals in process . * Maldonado Salazar MD - 02/16/2018 2:46 PM EDT [facility] Medicine Attending Daily Progress Note Patient Description: 27 y.o. male admitted to the hospital medicine service for a left acetabular fracture sustained in the context of a seizure with low serum level of anti-seizure medication. 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 Active Hospital Problems Diagnosis ??? S/P ORIF left acetabulum fracture 09/04/2017 Dr. Lance ??? Diabetes insipidus ??? Panhypopituitarism Resolved Hospital Problems Diagnosis Date Resolved ??? Hypernatremia 01/24/2018 ??? Acute urinary retention 01/24/2018 ??? Postoperative anemia due to acute blood loss 12/09/2017 Active Non-Hospital Problems Diagnosis ??? Seizure disorder ??? Insomnia ??? Blind ??? CVA (cerebral vascular accident) ??? Urinary incontinence Interval Events No acute overnight events No particular complaints today. Physical Exam Temp: [36.8 ??C (98.2 ??F)-37 ??C (98.6 ??F)] Heart Rate: [76-87] Resp: [15-19] BP: (118-122)/(83-88) SpO2: [97 %-98 %] Heart Rate from SPO2: -- General: Alert, interactive, responsive to questions, seated in bed HEENT: Moist mucous membranes Neck: No jugular venous distention Cor: Normal rate, regular rhythm, s1/s2 present Lungs: Clear to auscultation anterior medellin Abdomen: Soft, non-tender, non-distended; bowel sounds (+) Extremities: warm, no edema Skin: no rash Neuro: Appears to be at cognitive baseline Fluid Balance: Intake/Output Summary (Last 24 hours) at 02/16/18 1447 Last data filed at 02/16/18 1300 Gross per 24 hour Intake 2240 ml Output 2000 ml Net 240 ml Last Weight: 98.9 kg (218 lb 1.6 oz) Admission Weight: 86.64 kg Pertinent Labs Recent Labs 02/16/18 1355 02/15/18 0937 02/14/18 1138 NA 143 150* 150* K 3.7 4.0 4.1 CL 105 111* 112* CO2 24 21* 22 BUN 20 16 14 CREATININE 0.83 0.88 0.89 Recent Labs 02/16/18 1355 02/15/18 0937 02/14/18 1138 CALCIUM 9.3 9.9 9.8 Microbiology None recent Radiology & Studies in Last 24 Hours None Assessment and Plan 27 year old male with complex past medical history including guillen hypotpituitarism, cognitive impairment, seizure disorder, who presented in August with a seizure and associated left acetabular fracture in the context of osteopenia from chronic steroid use, status post operative repair September 04. His subsequent hospital course has been notable for recurrent hypernatremia - now on a stable dose of desmopressin - and urinary retention, now resolved. He is medically stable for discharge and awaiting a safe disposition. Appreciate case management efforts in this regard. Sodium was elevated for twodays to ~150 and now back down to 143 without any clear explanation. Continue to monitor daily BMP until Na level within range for at least 2-3 days then space back out to q72 hours. If recurrent issues with hypernatremia arise, we will plan to liberalize fluid restriction. #Left acetabular fracture, status post operative repair 09/04/17 --Weight bearing as tolerated since 11/21 --Expert orthopedics recommendations appreciated, no follow up planned --Acetaminophen, ibuprofen PRNs --Intermittently cooperative with rehabilitation team, continue to encourage PT/OT as able #Cognitive impairment with emotional disturbance --At baseline per caregiver and prior providers --Continue quetiapine scheduled and PRN --Continue trazodone, melatonin --Delirium precautions and non-pharmacologic interventions #Guillen-hypopituitarism #Diabetes insipidus #Hypothyroidism #Adrenal insufficiency #Hypogonadism --Continue present dosing of desmopressin, hydrocortisone, levothyroxine, testosterone --Daily electrolyte check, if remains stable can space out to q72 hr --n.b. desmopressin, levothyroxine and hydrocortisone dosing all adjusted during hospitalization --Encourage oral intake, 2 to 3 liters daily (upper limit 3.2L) --Expert endocrinology recommendations appreciated --No indication for either GI or pneumocystis prophylaxis on basis of low total daily steroid dose (~7.5 mg prednisone equivalent) #Seizure disorder --Zonisamide level low on admission, re-loaded with expert neurology guidance and home dose increased --Continue zonisamide at present dosing (200 mg) #Urinary retention, now resolved --PRN bladder scan/straight catheterization intermittently #Low bone mineral density --Calcium/Vitamin D supplementation --Initial injury occurred in context of seizure rather than pathologic fracture from low density --Endocrinology to consider bisphosphonate as oupatient #Fractured left lower molar --Non-urgent extraction pending availability #FEN/PPx/Dispo Fluids: oral ad mulu Electrolytes: as above Nutrition: regular diet DVT PPx: ambulation, sequential compression devices GI PPx: not indicated Disposition: awaiting placement, medically ready for discharge Code Status: Full Decision Maker: Guardian Sister Bettina Mason, contact information in Facesheet Maldonado Salazar MD [facility] Medicine Pager [phone] IPI Certification I certify that I am a D-H credentialed attending provider with admitting privileges and that the patient meets or has met medical necessity to require an inpatient IPI level of care meeting a minimumof two midnights or is on the CMS inpatient only procedure list (status C) due to: the patient has met Inpatient IPI criteria and is awaiting rehabilitation or half-way facility placement withactive referrals in process . * Maldonado Salazar MD - 02/15/2018 2:16 PM EDT [facility] Medicine Attending Daily Progress Note Patient Description: 27 y.o. male admitted to the hospital medicine service for a left acetabular fracture sustained in the context of a seizure with low serum level of anti-seizure medication. 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 Active Hospital Problems Diagnosis ??? S/P ORIF left acetabulum fracture 09/04/2017 Dr. Lance ??? Diabetes insipidus ??? Panhypopituitarism Resolved Hospital Problems Diagnosis Date Resolved ??? Hypernatremia 01/24/2018 ??? Acute urinary retention 01/24/2018 ??? Postoperative anemia due to acute blood loss 12/09/2017 Active Non-Hospital Problems Diagnosis ??? Seizure disorder ??? Insomnia ??? Blind ??? CVA (cerebral vascular accident) ??? Urinary incontinence Interval Events No acute overnight events Walking around the pod using walker today, made it halfway around before needing wheelchair. No particular complaints. Physical Exam Temp: [36.5 ??C (97.7 ??F)-36.7 ??C (98.1 ??F)] Heart Rate: [103-130] Resp: [20] BP: (121-146)/(83-94) SpO2: [98 %] Heart Rate from SPO2: [103 bpm-130 bpm] General: Alert, interactive, responsive to questions, seated in bed HEENT: Moist mucous membranes Neck: No jugular venous distention Cor: Normal rate, regular rhythm, s1/s2 present Lungs: Clear to auscultation anterior medellin Abdomen: Soft, non-tender, non-distended; bowel sounds (+) Extremities: warm, no edema Skin: no rash Neuro: Appears to be at cognitive baseline Fluid Balance: Intake/Output Summary (Last 24 hours) at 02/15/18 1416 Last data filed at 02/15/18 1305 Gross per 24 hour Intake 2350 ml Output 1500 ml Net 850 ml Last Weight: 98.9 kg (218 lb 1.6 oz) Admission Weight: 86.64 kg Pertinent Labs Recent Labs 02/15/18 0937 02/14/18 1138 02/14/18 0610 NA 150* 150* 151* K 4.0 4.1 3.8 CL 111* 112* 112* CO2 21* 22 24 BUN 16 14 15 CREATININE 0.88 0.89 0.62* Recent Labs 02/15/18 0937 02/14/18 1138 02/14/18 0610 CALCIUM 9.9 9.8 10.0 Microbiology None recent Radiology & Studies in Last 24 Hours None Assessment and Plan 27 year old male with complex past medical history including guillen hypotpituitarism, cognitive impairment, seizure disorder, who presented in August with a seizure and associated left acetabular fracture in the context of osteopenia from chronic steroid use, status post operative repair September 04. His subsequent hospital course has been notable for recurrent hypernatremia - now on a stable dose of desmopressin - and urinary retention, now resolved. He is medically stable for discharge and awaiting a safe disposition. Appreciate case management efforts in this regard. Given sodium elevation to ~150 (albeit it stable for >24 hours) we'll continue daily BMP for now and space back out to q72 hours as soon as possible. I suspect hypernatremia was due to poor PO intake, aim to have at least 2.5L fluid intake, up to 3.2L if possible. #Left acetabular fracture, status post operative repair 09/04/17 --Weight bearing as tolerated since 11/21 --Expert orthopedics recommendations appreciated, no follow up planned --Acetaminophen, ibuprofen PRNs --Intermittently cooperative with rehabilitation team, continue to encourage PT/OT as able #Cognitive impairment with emotional disturbance --At baseline per caregiver and prior providers --Continue quetiapine scheduled and PRN --Continue trazodone, melatonin --Delirium precautions and non-pharmacologic interventions #Guillen-hypopituitarism #Diabetes insipidus #Hypothyroidism #Adrenal insufficiency #Hypogonadism --Continue present dosing of desmopressin, hydrocortisone, levothyroxine, testosterone --Electrolyte check pending 8/12 AM labs, if remains stable can space out to q72 hr --n.b. desmopressin, levothyroxine and hydrocortisone dosing all adjusted during hospitalization --Encourage oral intake, 2 to 3 liters daily (upper limit 3.2L) --Expert endocrinology recommendations appreciated --No indication for either GI or pneumocystis prophylaxis on basis of low total daily steroid dose (~7.5 mg prednisone equivalent) #Seizure disorder --Zonisamide level low on admission, re-loaded with expert neurology guidance and home dose increased --Continue zonisamide at present dosing (200 mg) #Urinary retention, now resolved --PRN bladder scan/straight catheterization intermittently #Low bone mineral density --Calcium/Vitamin D supplementation --Initial injury occurred in context of seizure rather than pathologic fracture from low density --Endocrinology to consider bisphosphonate as oupatient #Fractured left lower molar --Non-urgent extraction pending availability #FEN/PPx/Dispo Fluids: oral ad mulu Electrolytes: as above Nutrition: regular diet DVT PPx: ambulation, sequential compression devices GI PPx: not indicated Disposition: awaiting placement, medically ready for discharge Code Status: Full Decision Maker: Guardian Sister Bettina Mason, contact information in Facesheet Maldonado Salazar MD [facility] Medicine Pager [phone] IPI Certification I certify that I am a D-H credentialed attending provider with admitting privileges and that the patient meets or has met medical necessity to require an inpatient IPI level of care meeting a minimumof two midnights or is on the [facility] inpatient only procedure list (status C) due to: the patient has met Inpatient IPI criteria and is awaiting rehabilitation or half-way facility placement withactive referrals in process . * Maldonado Salazar MD - 02/14/2018 1:52 PM EDT [facility] Medicine Attending Daily Progress Note Patient Description: 27 y.o. male admitted to the hospital medicine service for a left acetabular fracture sustained in the context of a seizure with low serum level of anti-seizure medication. 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 Active Hospital Problems Diagnosis ??? S/P ORIF left acetabulum fracture 09/04/2017 Dr. Lance ??? Diabetes insipidus ??? Panhypopituitarism Resolved Hospital Problems Diagnosis Date Resolved ??? Hypernatremia 01/24/2018 ??? Acute urinary retention 01/24/2018 ??? Postoperative anemia due to acute blood loss 12/09/2017 Active Non-Hospital Problems Diagnosis ??? Seizure disorder ??? Insomnia ??? Blind ??? CVA (cerebral vascular accident) ??? Urinary incontinence Interval Events No acute overnight events Quiet night, no behavioral issues. Told me his favorite Chaz Flynn character was Yeny because he's an animal lover. Unclear if he only took in 1.5L over prior 24 hours or if this is a documentation error. Continues to void regularly. No particular complaints. Physical Exam Temp: [36.5 ??C (97.7 ??F)-36.7 ??C (98.1 ??F)] Heart Rate: [115-128] Resp: [18] BP: (144-145)/(89-93) SpO2: [97 %] Heart Rate from SPO2: [120 bpm] General: Alert, interactive, responsive to questions, seated in wheelchair HEENT: Moist mucous membranes Neck: No jugular venous distention Cor: Normal rate, regular rhythm, s1/s2 present Lungs: Clear to auscultation anterior medellin Abdomen: Soft, non-tender, non-distended; bowel sounds (+) Extremities: warm, no edema Skin: no rash Neuro: Appears to be at cognitive baseline Fluid Balance: Intake/Output Summary (Last 24 hours) at 02/14/18 1352 Last data filed at 02/14/18 1200 Gross per 24 hour Intake 1060 ml Output 475 ml Net 585 ml Last Weight: 98.9 kg (218 lb 1.6 oz) Admission Weight: 86.64 kg Pertinent Labs Recent Labs 02/14/18 1138 02/14/18 0610 02/11/18 0723 NA 150* 151* 145 K 4.1 3.8 3.5 CL 112* 112* 106 CO2 22 24 23 BUN 14 15 15 CREATININE 0.89 0.62* 0.64* Recent Labs 02/14/18 1138 02/14/18 0610 02/11/18 0723 CALCIUM 9.8 10.0 9.4 Microbiology None recent Radiology & Studies in Last 24 Hours None Assessment and Plan 27 year old male with complex past medical history including guillen hypotpituitarism, cognitive impairment, seizure disorder, who presented in August with a seizure and associated left acetabular fracture in the context of osteopenia from chronic steroid use, status post operative repair September 04. His subsequent hospital course has been notable for recurrent hypernatremia - now on a stable dose of desmopressin - and urinary retention, now resolved. He is medically stable for discharge and awaiting a safe disposition. Appreciate case management efforts in this regard. Given sodium elevation to 151 (on recheck 150) will continue to check morning BMP, if <150 as of 02/15 we will space back outto q72 hours. I suspect hypernatremia was due to poor PO intake, aim to have at least 2.5L fluid intake, up to 3.2L if possible. #Left acetabular fracture, status post operative repair 09/04/17 --Weight bearing as tolerated since 11/21 --Expert orthopedics recommendations appreciated, no follow up planned --Acetaminophen, ibuprofen PRNs --Intermittently cooperative with rehabilitation team, continue to encourage PT/OT as able #Cognitive impairment with emotional disturbance --At baseline per caregiver and prior providers --Continue quetiapine scheduled and PRN --Continue trazodone, melatonin --Delirium precautions and non-pharmacologic interventions #Guillen-hypopituitarism #Diabetes insipidus #Hypothyroidism #Adrenal insufficiency #Hypogonadism --Continue present dosing of desmopressin, hydrocortisone, levothyroxine, testosterone --Electrolyte check pending 02/15 AM labs, if remains stable can space out to q72 hr --n.b. desmopressin, levothyroxine and hydrocortisone dosing all adjusted during hospitalization --Encourage oral intake, 2 to 3 liters daily (upper limit 3.2L) --Expert endocrinology recommendations appreciated --No indication for either GI or pneumocystis prophylaxis on basis of low total daily steroid dose (~7.5 mg prednisone equivalent) #Seizure disorder --Zonisamide level low on admission, re-loaded with expert neurology guidance and home dose increased --Continue zonisamide at present dosing (200 mg) #Urinary retention, now resolved --PRN bladder scan/straight catheterization intermittently #Low bone mineral density --Calcium/Vitamin D supplementation --Initial injury occurred in context of seizure rather than pathologic fracture from low density --Endocrinology to consider bisphosphonate as oupatient #Fractured left lower molar --Non-urgent extraction pending availability #FEN/PPx/Dispo Fluids: oral ad mulu Electrolytes: as above Nutrition: regular diet DVT PPx: ambulation, sequential compression devices GI PPx: not indicated Disposition: awaiting placement, medically ready for discharge Code Status: Full Decision Maker: Guardian Sister Bettina Mason, contact information in Facesheet Maldonado Salazar MD [facility] Medicine Pager [phone] IPI Certification I certify that I am a D-H credentialed attending provider with admitting privileges and that the patient meets or has met medical necessity to require an inpatient IPI level of care meeting a minimumof two midnights or is on the [facility] inpatient only procedure list (status C) due to: the patient has met Inpatient IPI criteria and is awaiting rehabilitation or half-way facility placement withactive referrals in process . * Christopher Stanley MD - 02/13/2018 8:01 AM EDT [facility] Medicine Attending Daily Progress Note Patient Description: 27 y.o. male admitted to the hospital medicine service for a left acetabular fracture sustained in the context of a seizure with low serum level of anti-seizure medication. 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 Active Hospital Problems Diagnosis ??? S/P ORIF left acetabulum fracture 09/04/2017 Dr. Lance ??? Diabetes insipidus ??? Panhypopituitarism Resolved Hospital Problems Diagnosis Date Resolved ??? Hypernatremia 01/24/2018 ??? Acute urinary retention 01/24/2018 ??? Postoperative anemia due to acute blood loss 12/09/2017 Active Non-Hospital Problems Diagnosis ??? Seizure disorder ??? Insomnia ??? Blind ??? CVA (cerebral vascular accident) ??? Urinary incontinence Interval Events No acute overnight events Case management reached out to nursing home about status of search A few behavioral outbursts overnight with no recent deviation from baseline. Feeling awesome thismorning and listening to [employer]. Good oral intake per nursing staff. Voiding regularly. Havingregular bowel movements. No other symptoms or offered complaints. Physical Exam Temp: [36.6 ??C (97.9 ??F)-36.8 ??C (98.2 ??F)] Heart Rate: [77-84] Resp: [18] BP: (134-143)/(71-75) SpO2: [99 %] Heart Rate from SPO2: -- General: Alert, interactive, responsive to questions, listening to [employer] HEENT: Moist mucous membranes Neck: No evident jugular venous distention Cor: Normal rate, regular rhythm, s1/s2; no murmurs, rubs Lungs: Clear to auscultation anterior and lateral medellin Abdomen: Soft, non-tender, non-distended; bowel sounds present Extremities: warm, no edema Skin: Warm, dry; no rash Neuro: Appears to be at cognitive baseline without recent outbursts Fluid Balance: Intake/Output Summary (Last 24 hours) at 02/13/18 0801 Last data filed at 02/13/18 0700 Gross per 24 hour Intake 2140 ml Output 3725 ml Net -1585 ml Last Weight: 98.9 kg (218 lb 1.6 oz) Admission Weight: 86.64 kg Pertinent Labs Recent Labs 02/11/18 0723 02/08/18 0553 02/06/18 1117 NA 145 144 143 K 3.5 3.6 3.9 CL 106 103 102 CO2 23 24 23 BUN 15 17 15 CREATININE 0.64* 0.88 0.74* Recent Labs 02/11/18 0723 02/08/18 0553 02/06/18 1117 CALCIUM 9.4 9.7 9.6 Microbiology None recent Radiology & Studies in Last 24 Hours None Assessment and Plan 27 year old male with complex past medical history including guillen hypotpituitarism, cognitive impairment, seizure disorder, who presented in August with a seizure and associated left acetabular fracture in the context of osteopenia from chronic steroid use, status post operative repair September 04. His subsequent hospital course has been notable for recurrent hypernatremia - now on a stable dose of desmopressin - and urinary retention, now resolved. He is medically stable for discharge and awaiting a safe disposition. Appreciate case management efforts in this regard. Labs 02/11 stable and appreciate creative efforts of staff to engage Miguel Angel. If electro-lytes remain stable 02/14, can transition to weekly unless significant polyuria or low oral intake. #Left acetabular fracture, status post operative repair 09/04/17 --Weight bearing as tolerated since 11/21 --Expert orthopedics recommendations appreciated, no follow up planned --Acetaminophen, ibuprofen PRNs --Intermittently cooperative with rehabilitation team, continue to encourage PT/OT as able #Cognitive impairment with emotional disturbance --At baseline per caregiver and prior providers --Continue quetiapine scheduled and PRN --Continue trazodone, melatonin --Delirium precautions and non-pharmacologic interventions #Guillen-hypopituitarism #Diabetes insipidus #Hypothyroidism #Adrenal insufficiency #Hypogonadism --Continue present dosing of desmopressin, hydrocortisone, levothyroxine, testosterone --Electrolyte checks space to q72h, if remains stable can make weekly based on 02/14 check --n.b. desmopressin, levothyroxine and hydrocortisone dosing all adjusted during hospitalization --Encourage oral intake, 2 to 3 liters daily --Expert endocrinology recommendations appreciated --No indication for either GI or pneumocystis prophylaxis on basis of low total daily steroid dose (~7.5 mg prednisone equivalent) #Seizure disorder --Zonisamide level low on admission, re-loaded with expert neurology guidance and home dose increased --Continue zonisamide at present dosing (200 mg) #Urinary retention, now resolved --PRN bladder scan/straight catheterization intermittently #Low bone mineral density --Calcium/Vitamin D supplementation --Initial injury occurred in context of seizure rather than pathologic fracture from low density --Endocrinology to consider bisphosphonate as oupatient #Fractured left lower molar --Non-urgent extraction pending availability #FEN/PPx/Dispo Fluids: oral ad mulu Electrolytes: as above Nutrition: regular diet DVT PPx: ambulation, sequential compression devices GI PPx: not indicated Disposition: awaiting placement, medically ready for discharge Code Status: Full Decision Maker: Guardian Sister Bettina Mason, contact information in Facesheet Christopher Stanley MD [facility] Medicine Pager [phone] IPI Certification I certify that I am a D-H credentialed attending provider with admitting privileges and that the patient meets or has met medical necessity to require an inpatient IPI level of care meeting a minimumof two midnights or is on the CMS inpatient only procedure list (status C) due to: the patient has met Inpatient IPI criteria and is awaiting rehabilitation or half-way facility placement withactive referrals in process . * Tricia Gerber RN - 02/12/2018 3:58 PM EDT Sent message to Bhakti Riojas- Senior Belt Fixer with [facility] [employer] [phone]. Request update on status of search for a home. ?? Tricia Gerber RN Case Homemaker Companion of Care Management [email or web address] Pager: [phone] * Christopher Stanley MD - 02/12/2018 7:40 AM EDT Hospital Medicine Attending Daily Progress Note Patient Description: 27 y.o. male admitted to the hospital medicine service for a left acetabular fracture sustained in the context of a seizure with low serum level of anti-seizure medication. 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 Active Hospital Problems Diagnosis ??? S/P ORIF left acetabulum fracture 09/04/2017 Dr. Lance ??? Diabetes insipidus ??? Panhypopituitarism Resolved Hospital Problems Diagnosis Date Resolved ??? Hypernatremia 01/24/2018 ??? Acute urinary retention 01/24/2018 ??? Postoperative anemia due to acute blood loss 12/09/2017 Active Non-Hospital Problems Diagnosis ??? Seizure disorder ??? Insomnia ??? Blind ??? CVA (cerebral vascular accident) ??? Urinary incontinence Interval Events No acute overnight events Miguel Angel denies new pain this morning. He is doing great and is excited for lunch. He has been voiding regularly and drinking plenty of water as well. No new concerns from nursing staff. Physical Exam Temp: [36.4 ??C (97.5 ??F)] Heart Rate: [84-91] Resp: [18-19] BP: (126-154)/(67-76) SpO2: [97 %-99 %] Heart Rate from SPO2: [80 bpm-84 bpm] General: Alert, interactive, responsive to questions HEENT: Moist mucous membranes Neck: No evident jugular venous distention Cor: Normal rate, regular rhythm, s1/s2; no murmurs, rubs Lungs: Clear to auscultation anterior and lateral medellin Abdomen: Soft, non-tender, non-distended; bowel sounds present Extremities: warm, no edema Skin: Warm, dry; no rash Neuro: Appears to be at cognitive baseline without recent outbursts Fluid Balance: Intake/Output Summary (Last 24 hours) at 02/12/18 0740 Last data filed at 02/12/18 0729 Gross per 24 hour Intake 1430 ml Output 1725 ml Net -295 ml Last Weight: 98.9 kg (218 lb 1.6 oz) Admission Weight: 86.64 kg Pertinent Labs Recent Labs 02/11/18 0723 02/08/18 0553 02/06/18 1117 NA 145 144 143 K 3.5 3.6 3.9 CL 106 103 102 CO2 23 24 23 BUN 15 17 15 CREATININE 0.64* 0.88 0.74* Recent Labs 02/11/18 0723 02/08/18 0553 02/06/18 1117 CALCIUM 9.4 9.7 9.6 Microbiology None recent Radiology & Studies in Last 24 Hours None Assessment and Plan 27 year old male with complex past medical history including guillen hypotpituitarism, cognitive impairment, seizure disorder, who presented in August with a seizure and associated left acetabular fracture in the context of osteopenia from chronic steroid use, status post operative repair September 04. His subsequent hospital course has been notable for recurrent hypernatremia - now on a stable dose of desmopressin - and urinary retention, now resolved. He is medically stable for discharge and awaiting a safe disposition. Appreciate case management efforts in this regard. Labs 02/11 stable and appreciate creative efforts of staff to engage Miguel Angel. #Left acetabular fracture, status post operative repair 09/04/17 --Weight bearing as tolerated since 11/21 --Expert orthopedics recommendations appreciated, no follow up planned --Acetaminophen, ibuprofen PRNs --Intermittently cooperative with rehabilitation team, continue to encourage PT/OT as able #Cognitive impairment with emotional disturbance --At baseline per caregiver and prior providers --Continue quetiapine scheduled and PRN --Continue trazodone, melatonin --Delirium precautions and non-pharmacologic interventions #Guillen-hypopituitarism #Diabetes insipidus #Hypothyroidism #Adrenal insufficiency #Hypogonadism --Continue present dosing of desmopressin, hydrocortisone, levothyroxine, testosterone --Electrolyte checks space to q72h, if remains stable can make weekly --n.b. desmopressin, levothyroxine and hydrocortisone dosing all adjusted during hospitalization --Encourage oral intake, 2 to 3 liters daily --Expert endocrinology recommendations appreciated --No indication for either GI or pneumocystis prophylaxis on basis of low total daily steroid dose (~7.5 mg prednisone equivalent) #Seizure disorder --Zonisamide level low on admission, re-loaded with expert neurology guidance and home dose increased --Continue zonisamide at present dosing (200 mg) #Urinary retention, now resolved --PRN bladder scan/straight catheterization intermittently #Low bone mineral density --Calcium/Vitamin D supplementation --Initial injury occurred in context of seizure rather than pathologic fracture from low density --Endocrinology to consider bisphosphonate as oupatient #Fractured left lower molar --Non-urgent extraction pending availability #FEN/PPx/Dispo Fluids: oral ad mulu Electrolytes: as above Nutrition: regular diet DVT PPx: ambulation, sequential compression devices GI PPx: not indicated Disposition: awaiting placement, medically ready for discharge Code Status: Full Decision Maker: Guardian Sister Bettina Mason, contact information in Facesheet Christopher Stanley MD [facility] Medicine Pager [phone] IPI Certification I certify that I am a D-H credentialed attending provider with admitting privileges and that the patient meets or has met medical necessity to require an inpatient IPI level of care meeting a minimumof two midnights or is on the [facility] inpatient only procedure list (status C) due to: the patient has met Inpatient IPI criteria and is awaiting rehabilitation or half-way facility placement withactive referrals in process . * Christopher Stanley MD - 02/11/2018 2:19 PM EDT [facility] Medicine Attending Daily Progress Note Patient Description: 27 y.o. male admitted to the hospital medicine service for a left acetabular fracture sustained in the context of a seizure with low serum level of anti-seizure medication. 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 Active Hospital Problems Diagnosis ??? S/P ORIF left acetabulum fracture 09/04/2017 Dr. Lance ??? Diabetes insipidus ??? Panhypopituitarism Resolved Hospital Problems Diagnosis Date Resolved ??? Hypernatremia 01/24/2018 ??? Acute urinary retention 01/24/2018 ??? Postoperative anemia due to acute blood loss 12/09/2017 Active Non-Hospital Problems Diagnosis ??? Seizure disorder ??? Insomnia ??? Blind ??? CVA (cerebral vascular accident) ??? Urinary incontinence Interval Events No acute overnight events Sleeping at time of my visit and had just fallen asleep and not awakened. Reviewed with nursing team and no events. Overall has been cooperative and mobile with assistance. His team have made him some unicorn poop out of [employer] and corn starch to play with today. Physical Exam Temp: [36.4 ??C (97.5 ??F)-36.6 ??C (97.9 ??F)] Heart Rate: [84-101] Resp: [18-20] BP: (121-143)/(64-82) SpO2: [97 %-99 %] Heart Rate from SPO2: [84 bpm-100 bpm] General: Sleeping during my visit and not awakened HEENT: Moist mucous membranes Neck: No evident jugular venous distention Cor: Normal rate, regular rhythm, s1/s2; no murmurs, rubs Lungs: Clear to auscultation Abdomen: Soft, non-tender, non-distended; bowel sounds present Extremities: warm, no edema Skin: Warm, dry; no rash Neuro: sleeping during my visit Fluid Balance: Intake/Output Summary (Last 24 hours) at 02/11/18 1419 Last data filed at 02/11/18 0928 Gross per 24 hour Intake 2136 ml Output 1100 ml Net 1036 ml Last Weight: 98.9 kg (218 lb 1.6 oz) Admission Weight: 86.64 kg Pertinent Labs Recent Labs 02/11/18 0723 02/08/18 0553 02/06/18 1117 NA 145 144 143 K 3.5 3.6 3.9 CL 106 103 102 CO2 23 24 23 BUN 15 17 15 CREATININE 0.64* 0.88 0.74* Recent Labs 02/11/18 0723 02/08/18 0553 02/06/18 1117 CALCIUM 9.4 9.7 9.6 Microbiology None recent Radiology & Studies in Last 24 Hours None Assessment and Plan 27 year old male with complex past medical history including guillen hypotpituitarism, cognitive impairment, seizure disorder, who presented in August with a seizure and associated left acetabular fracture in the context of osteopenia from chronic steroid use, status post operative repair September 04. His subsequent hospital course has been notable for recurrent hypernatremia - now on a stable dose of desmopressin - and urinary retention, now resolved. He is medically stable for discharge and awaiting a safe disposition. Appreciate case management efforts in this regard. Labs today stable and appreciate creative efforts of staff to engage Miguel Angel. #Left acetabular fracture, status post operative repair 09/04/17 --Weight bearing as tolerated since 11/21 --Expert orthopedics recommendations appreciated, no follow up planned --Acetaminophen, ibuprofen PRNs --Intermittently cooperative with rehabilitation team, continue to encourage PT/OT as able #Cognitive impairment with emotional disturbance --At baseline per caregiver and prior providers --Continue quetiapine scheduled and PRN --Continue trazodone, melatonin --Delirium precautions and non-pharmacologic interventions #Guillen-hypopituitarism #Diabetes insipidus #Hypothyroidism #Adrenal insufficiency #Hypogonadism --Continue present dosing of desmopressin, hydrocortisone, levothyroxine, testosterone --Electrolyte checks space to q72h, if remains stable can make weekly --n.b. desmopressin, levothyroxine and hydrocortisone dosing all adjusted during hospitalization --Encourage oral intake, 2 to 3 liters daily --Expert endocrinology recommendations appreciated --No indication for either GI or pneumocystis prophylaxis on basis of low total daily steroid dose (~7.5 mg prednisone equivalent) #Seizure disorder --Zonisamide level low on admission, re-loaded with expert neurology guidance and home dose increased --Continue zonisamide at present dosing (200 mg) #Urinary retention, now resolved --PRN bladder scan/straight catheterization intermittently #Low bone mineral density --Calcium/Vitamin D supplementation --Initial injury occurred in context of seizure rather than pathologic fracture from low density --Endocrinology to consider bisphosphonate as oupatient #Fractured left lower molar --Non-urgent extraction pending availability #FEN/PPx/Dispo Fluids: oral ad mulu Electrolytes: as above Nutrition: regular diet DVT PPx: ambulation, sequential compression devices GI PPx: not indicated Disposition: awaiting placement, medically ready for discharge Code Status: Full Decision Maker: Guardian Sister Bettina Mason, contact information in Facesheet Christopher Stanley MD [facility] Medicine Pager [phone] IPI Certification I certify that I am a D-H credentialed attending provider with admitting privileges and that the patient meets or has met medical necessity to require an inpatient IPI level of care meeting a minimumof two midnights or is on the [facility] inpatient only procedure list (status C) due to: the patient has met Inpatient IPI criteria and is awaiting rehabilitation or half-way facility placement withactive referrals in process . * Christopher Stanley MD - 02/10/2018 11:53 AM EDT [facility] Medicine Attending Daily Progress Note Patient Description: 27 y.o. male admitted to the hospital medicine service for a left acetabular fracture sustained in the context of a seizure with low serum level of anti-seizure medication. 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 Active Hospital Problems Diagnosis ??? S/P ORIF left acetabulum fracture 09/04/2017 Dr. Lance ??? Diabetes insipidus ??? Panhypopituitarism Resolved Hospital Problems Diagnosis Date Resolved ??? Hypernatremia 01/24/2018 ??? Acute urinary retention 01/24/2018 ??? Postoperative anemia due to acute blood loss 12/09/2017 Active Non-Hospital Problems Diagnosis ??? Seizure disorder ??? Insomnia ??? Blind ??? CVA (cerebral vascular accident) ??? Urinary incontinence Interval Events No acute overnight events Some agitation this morning which resolved with redirection. Eating carrots and celery during my visit. Denies specific complaints including pain. Reports appetite is good. Walked 50 steps yesterday with nursing assistance which he enjoyed greatly. He reports being a great country music fan. Physical Exam Temp: [36.9 ??C (98.5 ??F)] Heart Rate: [78-103] Resp: [16] BP: (119-128)/(68-82) SpO2: [97 %] Heart Rate from SPO2: -- General: Pleasant male, eating carrots and celery during my visit, listening to country music HEENT: Moist mucous membranes Neck: No evident jugular venous distention Cor: Normal rate, regular rhythm, s1/s2; no murmurs, rubs Lungs: Clear to auscultation Abdomen: Soft, non-tender, non-distended; bowel sounds present Extremities: warm, no edema Skin: Warm, dry; no rash Neuro: cooperative and calm today Fluid Balance: Intake/Output Summary (Last 24 hours) at 02/10/18 1153 Last data filed at 02/10/18 1134 Gross per 24 hour Intake 1234 ml Output 300 ml Net 934 ml Last Weight: 98.9 kg (218 lb 1.6 oz) Admission Weight: 86.64 kg Pertinent Labs Recent Labs 02/08/18 0553 02/06/18 1117 02/04/18 0630 NA 144 143 140 K 3.6 3.9 3.6 CL 103 102 100 CO2 24 23 23 BUN 17 15 15 CREATININE 0.88 0.74* 0.70* Recent Labs 02/08/18 0553 02/06/18 1117 02/04/18 0630 CALCIUM 9.7 9.6 9.8 Microbiology None recent Radiology & Studies in Last 24 Hours None Assessment and Plan 27 year old male with complex past medical history including guillen hypotpituitarism, cognitive impairment, seizure disorder, who presented in August with a seizure and associated left acetabular fracture in the context of osteopenia from chronic steroid use, status post operative repair September 04. His subsequent hospital course has been notable for recurrent hypernatremia - now on a stable dose of desmopressin - and urinary retention, now resolved. He is medically stable for discharge and awaiting a safe disposition. Appreciate case management efforts in this regard. #Left acetabular fracture, status post operative repair 09/04/17 --Weight bearing as tolerated since 11/21 --Expert orthopedics recommendations appreciated, no follow up planned --Acetaminophen, ibuprofen PRNs --Intermittently cooperative with rehabilitation team, continue to encourage PT/OT as able #Cognitive impairment with emotional disturbance --At baseline per caregiver and prior providers --Continue quetiapine scheduled and PRN --Continue trazodone, melatonin --Delirium precautions and non-pharmacologic interventions #Guillen-hypopituitarism #Diabetes insipidus #Hypothyroidism #Adrenal insufficiency #Hypogonadism --Continue present dosing of desmopressin, hydrocortisone, levothyroxine, testosterone --Electrolyte checks space to q72h, if remains stable can make weekly --n.b. desmopressin, levothyroxine and hydrocortisone dosing all adjusted during hospitalization --Encourage oral intake, 2 to 3 liters daily --Expert endocrinology recommendations appreciated --No indication for either GI or pneumocystis prophylaxis on basis of low total daily steroid dose (~7.5 mg prednisone equivalent) #Seizure disorder --Zonisamide level low on admission, re-loaded with expert neurology guidance and home dose increased --Continue zonisamide at present dosing (200 mg) #Urinary retention, now resolved --PRN bladder scan/straight catheterization intermittently #Low bone mineral density --Calcium/Vitamin D supplementation --Initial injury occurred in context of seizure rather than pathologic fracture from low density --Endocrinology to consider bisphosphonate as oupatient #Fractured left lower molar --Non-urgent extraction pending availability #FEN/PPx/Dispo Fluids: oral ad mulu Electrolytes: as above Nutrition: regular diet DVT PPx: ambulation, sequential compression devices GI PPx: not indicated Disposition: awaiting placement, medically ready for discharge Code Status: Full Decision Maker: Guardian Sister Bettina Mason, contact information in Facesheet Christopher Stanley MD [facility] Medicine Pager [phone] IPI Certification I certify that I am a D-H credentialed attending provider with admitting privileges and that the patient meets or has met medical necessity to require an inpatient IPI level of care meeting a minimumof two midnights or is on the [facility] inpatient only procedure list (status C) due to: the patient has met Inpatient IPI criteria and is awaiting rehabilitation or half-way facility placement withactive referrals in process . * Christopher Stanley MD - 02/09/2018 8:08 AM EDT [facility] Medicine Attending Daily Progress Note Patient Description: 27 y.o. male admitted to the hospital medicine service for a left acetabular fracture sustained in the context of a seizure with low serum level of anti-seizure medication. 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 Active Hospital Problems Diagnosis ??? S/P ORIF left acetabulum fracture 09/04/2017 Dr. Lance ??? Diabetes insipidus ??? Panhypopituitarism Resolved Hospital Problems Diagnosis Date Resolved ??? Hypernatremia 01/24/2018 ??? Acute urinary retention 01/24/2018 ??? Postoperative anemia due to acute blood loss 12/09/2017 Active Non-Hospital Problems Diagnosis ??? Seizure disorder ??? Insomnia ??? Blind ??? CVA (cerebral vascular accident) ??? Urinary incontinence Interval Events No acute overnight events Per nursing, remains intermittently agitated and yelling but more cooperative than in prior days. Miguel Angel was asleep when I examined him and I did not wake him, but reviewed his care with the nurses who did not report new symptoms. Physical Exam Temp: [36.6 ??C (97.9 ??F)-36.8 ??C (98.3 ??F)] Heart Rate: [107-125] Resp: [18] BP: (135-161)/(72-94) SpO2: [95 %-96 %] Heart Rate from SPO2: [97 bpm-125 bpm] General: Sleeping comfortably, not awakened HEENT: Anicteric sclerae; moist mucous membranes Neck: No evident jugular venous distention Cor: Normal rate, regular rhythm, s1/s2; no murmurs, rubs Lungs: Clear to auscultation Abdomen: Soft, non-tender, non-distended; bowel sounds present Extremities: warm, no edema Skin: Warm, dry; no rash Neuro: comfortable and sleeping, detailed exam deferred today Fluid Balance: Intake/Output Summary (Last 24 hours) at 02/09/18 0808 Last data filed at 02/08/18 2150 Gross per 24 hour Intake 1935 ml Output 2200 ml Net -265 ml Last Weight: 98.9 kg (218 lb 1.6 oz) Admission Weight: 86.64 kg Pertinent Labs Recent Labs 02/08/18 0553 02/06/18 1117 02/04/18 0630 NA 144 143 140 K 3.6 3.9 3.6 CL 103 102 100 CO2 24 23 23 BUN 17 15 15 CREATININE 0.88 0.74* 0.70* Recent Labs 02/08/18 0553 02/06/18 1117 02/04/18 0630 CALCIUM 9.7 9.6 9.8 Microbiology None recent Radiology & Studies in Last 24 Hours None Assessment and Plan 27 year old male with complex past medical history including guillen hypotpituitarism, cognitive impairment, seizure disorder, who presented in August with a seizure and associated left acetabular fracture in the context of osteopenia from chronic steroid use, status post operative repair September 04. His subsequent hospital course has been notable for recurrent hypernatremia - now on a stable dose of desmopressin - and urinary retention, now resolved. He is medically stable for discharge and awaiting a safe disposition. Appreciate case management efforts in this regard and reviewed with them this morning. #Left acetabular fracture, status post operative repair 09/04/17 --Weight bearing as tolerated since 11/21 --Expert orthopedics recommendations appreciated, no follow up planned --Acetaminophen, ibuprofen PRNs --Intermittently cooperative with rehabilitation team, continue to encourage PT/OT as able #Cognitive impairment with emotional disturbance --At baseline per caregiver and prior providers --Continue quetiapine scheduled and PRN --Continue trazodone, melatonin --Delirium precautions and non-pharmacologic interventions #Guillen-hypopituitarism #Diabetes insipidus #Hypothyroidism #Adrenal insufficiency #Hypogonadism --Continue present dosing of desmopressin, hydrocortisone, levothyroxine, testosterone --Electrolyte checks space to q72h, if remains stable can make weekly --n.b. desmopressin, levothyroxine and hydrocortisone dosing all adjusted during hospitalization --Encourage oral intake, 2 to 3 liters daily --Expert endocrinology recommendations appreciated --No indication for either GI or pneumocystis prophylaxis on basis of low total daily steroid dose (~7.5 mg prednisone equivalent) #Seizure disorder --Zonisamide level low on admission, re-loaded with expert neurology guidance and home dose increased --Continue zonisamide at present dosing (200 mg) #Urinary retention, now resolved --PRN bladder scan/straight catheterization intermittently #Low bone mineral density --Calcium/Vitamin D supplementation --Initial injury occurred in context of seizure rather than pathologic fracture from low density --Endocrinology to consider bisphosphonate as oupatient #Fractured left lower molar --Non-urgent extraction pending availability #FEN/PPx/Dispo Fluids: oral ad mulu Electrolytes: as above Nutrition: regular diet DVT PPx: ambulation, sequential compression devices GI PPx: not indicated Disposition: awaiting placement, medically ready for discharge Code Status: Full Decision Maker: Guardian Sister Bettina Mason, contact information in Facesheet Christopher Stanley MD [facility] Medicine Pager [phone] IPI Certification I certify that I am a D-H credentialed attending provider with admitting privileges and that the patient meets or has met medical necessity to require an inpatient IPI level of care meeting a minimumof two midnights or is on the [facility] inpatient only procedure list (status C) due to: the patient has met Inpatient IPI criteria and is awaiting rehabilitation or half-way facility placement withactive referrals in process . * Christopher Stanley MD - 02/08/2018 10:43 AM EDT [facility] Medicine Attending Daily Progress Note Patient Description: 27 y.o. male admitted to the hospital medicine service for a left acetabular fracture sustained in the context of a seizure with low serum level of anti-seizure medication. 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 Active Hospital Problems Diagnosis ??? S/P ORIF left acetabulum fracture 09/04/2017 Dr. Lance ??? Diabetes insipidus ??? Panhypopituitarism Resolved Hospital Problems Diagnosis Date Resolved ??? Hypernatremia 01/24/2018 ??? Acute urinary retention 01/24/2018 ??? Postoperative anemia due to acute blood loss 12/09/2017 Active Non-Hospital Problems Diagnosis ??? Seizure disorder ??? Insomnia ??? Blind ??? CVA (cerebral vascular accident) ??? Urinary incontinence Interval Events No acute overnight events, slept from 11 pm to 6 am with minimal interruption Calm this morning, eating and drinking well, denies pain or new complaints. Relates his love for [employer] pie. Physical Exam Temp: -- Heart Rate: [125] Resp: -- BP: (151)/(94) SpO2: -- Heart Rate from SPO2: [125 bpm] General: Awake, alert, less agitated today HEENT: Anicteric sclerae; moist mucous membranes Neck: No evident jugular venous distention Cor: Normal rate, regular rhythm, s1/s2; no murmurs, rubs Lungs: Clear to auscultation Abdomen: Soft, non-tender, non-distended; bowel sounds present Extremities: warm, no edema Skin: Warm, dry; no rash Neuro: intermittently agitated, able to follow commands Fluid Balance: Intake/Output Summary (Last 24 hours) at 02/08/18 1043 Last data filed at 02/08/18 1000 Gross per 24 hour Intake 2695 ml Output 1450 ml Net 1245 ml Last Weight: 98.9 kg (218 lb 1.6 oz) Admission Weight: 86.64 kg Pertinent Labs Recent Labs 02/08/18 0553 02/06/18 1117 02/04/18 0630 NA 144 143 140 K 3.6 3.9 3.6 CL 103 102 100 CO2 24 23 23 BUN 17 15 15 CREATININE 0.88 0.74* 0.70* Recent Labs 02/08/18 0553 02/06/18 1117 02/04/18 0630 CALCIUM 9.7 9.6 9.8 Microbiology None recent Radiology & Studies in Last 24 Hours None Assessment and Plan 27 year old male with complex past medical history including guillen hypotpituitarism, cognitive impairment, seizure disorder, who presented in August with a seizure and associated left acetabular fracture in the context of osteopenia from chronic steroid use, status post operative repair September 04. His subsequent hospital course has been notable for recurrent hypernatremia - now on a stable dose of desmopressin - and urinary retention, now resolved. He is medically stable for discharge and awaiting a safe disposition. Appreciate case management efforts in this regard. #Left acetabular fracture, status post operative repair 09/04/17 --Weight bearing as tolerated since 11/21 --Expert orthopedics recommendations appreciated, no follow up planned --Acetaminophen, ibuprofen PRNs --Intermittently cooperative with rehabilitation team, continue to encourage PT/OT as able #Cognitive impairment with emotional disturbance --At baseline per caregiver and prior providers --Continue quetiapine scheduled and PRN --Continue trazodone, melatonin --Delirium precautions and non-pharmacologic interventions #Guillen-hypopituitarism #Diabetes insipidus #Hypothyroidism #Adrenal insufficiency #Hypogonadism --Continue present dosing of desmopressin, hydrocortisone, levothyroxine, testosterone --Electrolyte checks space to q72h, if remains stable can make weekly --n.b. desmopressin, levothyroxine and hydrocortisone dosing all adjusted during hospitalization --Encourage oral intake, 2 to 3 liters daily --Expert endocrinology recommendations appreciated --No indication for either GI or pneumocystis prophylaxis on basis of low total daily steroid dose (~7.5 mg prednisone equivalent) #Seizure disorder --Zonisamide level low on admission, re-loaded with expert neurology guidance and home dose increased --Continue zonisamide at present dosing (200 mg) #Urinary retention, now resolved --PRN bladder scan/straight catheterization intermittently #Low bone mineral density --Calcium/Vitamin D supplementation --Initial injury occurred in context of seizure rather than pathologic fracture from low density --Endocrinology to consider bisphosphonate as oupatient #Fractured left lower molar --Non-urgent extraction pending availability #FEN/PPx/Dispo Fluids: oral ad mulu Electrolytes: as above, QOD checks Nutrition: regular diet DVT PPx: ambulation, sequential compression devices GI PPx: not indicated Disposition: awaiting placement, medically ready for discharge Code Status: Full Decision Maker: Guardian Sister Bettina Mason, contact information in Facesheet Summary for Today Space lab checks to q72h Encourage normal sleep-wake cycle Christopher Stanley MD [facility] Medicine Pager [phone] IPI Certification I certify that I am a D-H credentialed attending provider with admitting privileges and that the patient meets or has met medical necessity to require an inpatient IPI level of care meeting a minimumof two midnights or is on the CMS inpatient only procedure list (status C) due to: the patient has met Inpatient IPI criteria and is awaiting rehabilitation or half-way facility placement withactive referrals in process . * Christopher Stanley MD - 02/07/2018 7:45 AM EDT [facility] Medicine Attending Daily Progress Note Patient Description: 27 y.o. male admitted to the hospital medicine service for a left acetabular fracture sustained in the context of a seizure with low serum level of anti-seizure medication. 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 Active Hospital Problems Diagnosis ??? S/P ORIF left acetabulum fracture 09/04/2017 Dr. Lance ??? Diabetes insipidus ??? Panhypopituitarism Resolved Hospital Problems Diagnosis Date Resolved ??? Hypernatremia 01/24/2018 ??? Acute urinary retention 01/24/2018 ??? Postoperative anemia due to acute blood loss 12/09/2017 Active Non-Hospital Problems Diagnosis ??? Seizure disorder ??? Insomnia ??? Blind ??? CVA (cerebral vascular accident) ??? Urinary incontinence Interval Events No acute overnight events This morning agitated and tachyardic (134) with normal fever curve. Not re- directable. Given PRN quetiapine with minimal effect. Physical Exam Temp: [36.9 ??C (98.4 ??F)] Heart Rate: [113-134] Resp: [24] BP: (135-154)/(77-79) SpO2: -- Heart Rate from SPO2: [113 bpm-134 bpm] General: Awake, alert, agitated, eating carrots and celery with SCREENER AND BLENDER HEENT: Anicteric sclerae; moist mucous membranes Neck: No evident jugular venous distention Cor: Normal rate, regular rhythm, s1/s2; no murmurs, rubs Lungs: Clear to auscultation Abdomen: Soft, non-tender, non-distended; bowel sounds present Extremities: warm, no edema; occasionally kicking Skin: Warm, dry; no rash Neuro: No focal deficits observed Fluid Balance: Intake/Output Summary (Last 24 hours) at 02/07/18 1128 Last data filed at 02/07/18 1013 Gross per 24 hour Intake 1680 ml Output 2650 ml Net -970 ml Last Weight: 98.9 kg (218 lb 1.6 oz) Admission Weight: 86.64 kg Pertinent Labs Recent Labs 02/06/18 1117 02/04/18 0630 02/02/18 0934 NA 143 140 144 K 3.9 3.6 3.6 CL 102 100 104 CO2 23 23 24 BUN 15 15 13 CREATININE 0.74* 0.70* 0.76* Recent Labs 02/06/18 1117 02/04/18 0630 02/02/18 0934 CALCIUM 9.6 9.8 9.8 Microbiology None recent Radiology & Studies in Last 24 Hours None Assessment and Plan 27 year old male with complex past medical history including guillen hypotpituitarism, cognitive impairment, seizure disorder, who presented in August with a seizure and associated left acetabular fracture in the context of osteopenia from chronic steroid use, status post operative repair September 04. His subsequent hospital course has been notable for recurrent hypernatremia - now on a stable dose of desmopressin - and urinary retention, now resolved. He is medically stable for discharge and awaiting a safe disposition. Appreciate case management efforts in this regard. #Left acetabular fracture, status post operative repair 09/04/17 --Weight bearing as tolerated since 11/21 --Expert orthopedics recommendations appreciated, no follow up planned --Acetaminophen, ibuprofen PRNs --Intermittently cooperative with rehabilitation team, continue to encourage PT/OT as able #Cognitive impairment with emotional disturbance --At baseline per caregiver and prior providers --Continue quetiapine scheduled and PRN --Continue trazodone, melatonin --Delirium precautions and non-pharmacologic interventions #Guillen-hypopituitarism #Diabetes insipidus #Hypothyroidism #Adrenal insufficiency #Hypogonadism --Continue present dosing of desmopressin, hydrocortisone, levothyroxine, testosterone --Electrolyte checks space to q72h, if remains stable can make weekly --n.b. desmopressin, levothyroxine and hydrocortisone dosing all adjusted during hospitalization --Encourage oral intake, 2 to 3 liters daily --Expert endocrinology recommendations appreciated --No indication for either GI or pneumocystis prophylaxis on basis of low total daily steroid dose (~7.5 mg prednisone equivalent) #Seizure disorder --Zonisamide level low on admission, re-loaded with expert neurology guidance and home dose increased --Continue zonisamide at present dosing (200 mg) #Urinary retention, now resolved --PRN bladder scan/straight catheterization intermittently #Low bone mineral density --Calcium/Vitamin D supplementation --Initial injury occurred in context of seizure rather than pathologic fracture from low density --Endocrinology to consider bisphosphonate as oupatient #Fractured left lower molar --Non-urgent extraction pending availability #FEN/PPx/Dispo Fluids: oral ad mulu Electrolytes: as above, QOD checks Nutrition: regular diet DVT PPx: ambulation, sequential compression devices GI PPx: not indicated Disposition: awaiting placement, medically ready for discharge Code Status: Full Decision Maker: Guardian Sister Bettina Mason, contact information in Facesheet Summary for Today Space lab checks to q72h Bladder scan with ongoing agitation; continued attempts at redirection; if unsuccessful will provide extra dose of quetiapine Christopher Stanley MD [facility] Medicine Pager [phone] IPI Certification I certify that I am a D-H credentialed attending provider with admitting privileges and that the patient meets or has met medical necessity to require an inpatient IPI level of care meeting a minimumof two midnights or is on the [facility] inpatient only procedure list (status C) due to: the patient has met Inpatient IPI criteria and is awaiting rehabilitation or half-way facility placement withactive referrals in process . * Mariposa Harkins RN - 02/07/2018 5:47 AM EDT Problem: Patient Care Overview Goal: Plan of Care Review Outcome: Ongoing (Interventions Implemented as Appropriate) ?? 02/05/18 0536 02/06/18 1800 Coping/Psychosocial Plan Of Care Reviewed With -- patient Plan of Care Review Progress no change -- ?? OUTCOME EVALUATION NOTE: ?? OUTCOME SUMMARY: Miguel Angel spent most of the shift yelling and screaming. Sleeping in several long naps, otherwise very agitated and difficult to direct. Incontinent of both urine and stool, declining to use the toilet when offered, But staff was able to get him to take his medication. Otherwise no other events overnight, give medications per MAR. Continue to monitor for changes and encourage ambulation. PLAN MOVING FORWARD: 1:1 Sitter, rehab for discharge, encourage ambulation ?? INDIVIDUALIZED FALL PREVENTION INTERVENTIONS: ?? Patient-specific fall risk factors per assessment: [current deficits]: Confusion, generalized weakness, medications, agitation ?? Assistance [level of assistance required for transfers and ambulation]: 2 assist ?? Supervision [direct monitoring required during toileting and ADLs]: Hands on, eyes on ?? Surveillance [continuous indirect monitoring]: Hourly rounding, ?? Patient-specific fall prevention interventions for sensory deficits provided, if applicable: Yes ? CPG GOAL OUTCOME EVALUATION: ?? * Fran Gilliam MD - 02/06/2018 12:00 PM EDT Hospital Medicine Attending Daily Progress Note Patient Name: Miguel Angel Mason Service: Hospital Medicine Admit Date: 09/02/2017 Hospital Day: 157 Patient Description: Miguel Angel Mason is a 27 y.o. 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 His hospital course has been complicated by hypernatremia (resolved, now recurrent), andurinary retention (resolved). Active Problems: Active Hospital Problems Diagnosis ??? S/P ORIF left acetabulum fracture 09/04/2017 Dr. Lance ??? Diabetes insipidus ??? Panhypopituitarism Resolved Hospital Problems Diagnosis Date Resolved ??? Hypernatremia 01/24/2018 ??? Acute urinary retention 01/24/2018 ??? Postoperative anemia due to acute blood loss 12/09/2017 Interval History / ROS: -no new events or issues -pt reportedly had significant L knee pain yesterday when he ambulated -denies pain in knee or anywhere else today -otherwise without complaints Objective: Vitals: Last Value Range Last 24 hrs Temperature Temp: 36.4 ??C (97.5 ??F) Temp: [36.4 ??C (97.5 ??F)] Heart Rate Heart Rate: (!) 108 Heart Rate: [108] Blood Pressure BP: 140/67 BP: (140)/(67) Respiratory Rate Resp: 20 Resp: [20] SpO2 SpO2: 94 % SpO2: -- Weight: Last: 98.9 kg (218 lb 1.6 oz) I/Os: 02/05 07 - 02/06 0700 In: 2740 [P.O.:2740] Out: 1800 [Urine:1800] Admit: 86.64 kg Physical Exam: Awake, alert, calm, appears comfortable Anicteric, MMM RRR, no murmur CTAB Soft, NT/ND No edema, L knee nontender to palpation, no erythema or warmth, a little stiff but relatively full ROM Skin warm/dry, no rash Labs Notable For: Recent Results (from the past 24 hour(s)) Basic Metabolic Panel (non-fasting) Result Value Ref Range Glucose Lvl 104 65 - 199 mg/dL BUN 15 10 - 20 mg/dL Creatinine 0.74 (L) 0.80 - 1.50 mg/dL Sodium 143 135 - 145 mmol/L Potassium 3.9 3.5 - 5.0 mmol/L Chloride 102 98 - 107 mmol/L CO2 23 22 - 31 mmol/L Anion Gap 18 (H) 5 - 15 mmol/L Calcium 9.6 8.5 - 10.5 mg/dL eGFR 126 >=60 mL/min/1.73 m?? eGFR 147 >=60 mL/min/1.73 m?? Lavender Tube HOLD Result Value Ref Range Lavender Hold Sample in lab. Micro: None. Radiology/Studies: None new today. Assessment and Plan Miguel Angel Mason is a 27 y.o. 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 His hospital course has been complicated by hypernatremia (now recurrent), and urinary retention (resolved). The patient's DDAVP doses were recently adjusted (see below) with the guidance of the endocrinologyteam, given his hypernatremia (149) earlier this week. The patient's sodium appears to be stable onthis regimen, thus far. We will continue to monitor the patient's sodium closely. The patient is otherwise medically stable and the care management team is working to find a safe discharge plan for the patient. # Left acetabular fracture: s/p operative repair on 09/04/2017 and orthopedics advanced to WBAT BLE (11/21). - Acetaminophen 650mg q8hr - Ibuprofen 400mg q6hr PRN - no need for further Ortho follow up at this time per Ortho - PT/OT - currently not working with him as he had not been cooperating - would revisit this with PT and see if they will try working with him again ?? # Baseline cognitive impairment: 2/2 prior CVA/hemorrhage from pituitary surgery). Intermittent waxing/waning periods of restlessness and yelling/moaning loudly alternating with periods of relative calm are normal, per caregiver. - Quetiapine 250mg nightly - Trazodone 50mg nightly - Melatonin 9mg nightly - Additional quetiapine 50mg BID PRN agitation - Continue usual non-pharmacological interventions (awake during day, sitter, normalized routine, etc) # DI, Hypernatremia: Sodium intermittently elevated - currently back within the normal range. - Appreciate Endocrinology assistance - DDAVP dosing adjusted as follows: - DDAVP 0.1mg in morning - DDAVP 0.15mg in evening - ensure that he gets 2-3 L of PO fluid intake per day - monitor electrolytes every other day at this point (decrease frequency if Na remains stable) ?? # 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including DI, hypothyroidism, adrenal insufficiency, and hypogonadism): Stable other than hypernatremia (see above) - Hydrocortisone 20mg in AM, 10mg at Noon, - Desmopressin as described above, ensure that he gets between 2-3 L of PO fluid intake daily - Levothyroxine 225mcg daily - Testosterone 5mg gel nightly # Seizure disorder - Zonisamide 200mg nightly ? # Fractured left lower molar: Likely occurred with seizure, no evidence of acute infection. Extraction to occur in non-urgent manner pending availability. ?? # Urinary retention: Improved:? - PRN bladder scan/straight cath ?? # HTN - Continue metoprolol # Other Chronic Medical Conditions: - Osteopenia: Calcium carbonate and vitamin D - DVT proph: ambulation; SCDs - Nutrition: Regular diet - Code Status: Full Code IPI Certification I certify that I am a D-H credentialed attending provider with admitting privileges and that the patient meets or has met medical necessity to require an inpatient IPI level of care meeting a minimumof two midnights or is on the [facility] inpatient only procedure list (status C) due to: Patient previously met IPI criteria and is now awaiting placement at a half-way facility. FRAN GILLIAM MD 02/06/2018 Hospital Medicine Team Pager: #[phone] * Fran Gilliam MD - 02/05/2018 4:07 PM EDT Hospital Medicine Attending Daily Progress Note Patient Name: Miguel Angel Mason Service: Hospital Medicine Admit Date: 09/02/2017 Hospital Day: 156 Patient Description: Miguel Angel Mason is a 27 y.o. 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 His hospital course has been complicated by hypernatremia (resolved, now recurrent), andurinary retention (resolved). Active Problems: Active Hospital Problems Diagnosis ??? S/P ORIF left acetabulum fracture 09/04/2017 Dr. Lance ??? Diabetes insipidus ??? Panhypopituitarism Resolved Hospital Problems Diagnosis Date Resolved ??? Hypernatremia 01/24/2018 ??? Acute urinary retention 01/24/2018 ??? Postoperative anemia due to acute blood loss 12/09/2017 Interval History / ROS: -no new events or issues -pt without complaints Objective: Vitals: Last Value Range Last 24 hrs Temperature Temp: 36.5 ??C (97.7 ??F) Temp: [36.2 ??C (97.2 ??F)-36.5 ??C (97.7 ??F)] Heart Rate Heart Rate: (!) 101 Heart Rate: [89-101] Blood Pressure BP: 128/81 BP: (111-138)/(72-81) Respiratory Rate Resp: 22 Resp: [18-22] SpO2 SpO2: 94 % SpO2: [94 %-99 %] Weight: Last: 98.9 kg (218 lb 1.6 oz) I/Os: 02/04 0701 - 02/05 0700 In: 2585 [P.O.:2585] Out: 2100 [Urine:2100] Admit: 86.64 kg Physical Exam: Awake, alert, calm, appears comfortable Anicteric, MMM RRR, no murmur CTAB Soft, NT/ND No edema Skin warm/dry, no rash Labs Notable For: No results found for this or any previous visit (from the past 24 hour(s)). Micro: None. Radiology/Studies: None new today. Assessment and Plan Miguel Angel Mason is a 27 y.o. 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 His hospital course has been complicated by hypernatremia (now recurrent), and urinary retention (resolved). The patient's DDAVP doses were recently adjusted (see below) with the guidance of the endocrinologyteam, given his hypernatremia (149) earlier this week. The patient's sodium appears to be stable onthis regimen, thus far. We will continue to monitor the patient's sodium closely. The patient is otherwise medically stable and the care management team is working to find a safe discharge plan for the patient. # Left acetabular fracture: s/p operative repair on 09/04/2017 and orthopedics advanced to WBAT BLE (11/21). - Acetaminophen 650mg q8hr - Ibuprofen 400mg q6hr PRN - no need for further Ortho follow up at this time per Ortho - PT/OT - currently not working with him as he had not been cooperating with them - will ask them to revisit him and continue to try working with him ?? # Baseline cognitive impairment: 2/2 prior CVA/hemorrhage from pituitary surgery). Intermittent waxing/waning periods of restlessness and yelling/moaning loudly alternating with periods of relative calm are normal, per caregiver. - Quetiapine 250mg nightly - Trazodone 50mg nightly - Melatonin 9mg nightly - Additional quetiapine 50mg BID PRN agitation - Continue usual non-pharmacological interventions (awake during day, sitter, normalized routine, etc) # DI, Hypernatremia: Sodium intermittently elevated - currently back within the normal range. - Appreciate Endocrinology assistance - DDAVP dosing adjusted as follows: - DDAVP 0.1mg in morning - DDAVP 0.15mg in evening - ensure that he gets 2-3 L of PO fluid intake per day - monitor electrolytes every other day at this point (decrease frequency if Na remains stable) ?? # 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including DI, hypothyroidism, adrenal insufficiency, and hypogonadism): Stable other than hypernatremia (see above) - Hydrocortisone 20mg in AM, 10mg at Noon, - Desmopressin as described above, ensure that he gets between 2-3 L of PO fluid intake daily - Levothyroxine 225mcg daily - Testosterone 5mg gel nightly # Seizure disorder - Zonisamide 200mg nightly ? # Fractured left lower molar: Likely occurred with seizure, no evidence of acute infection. Extraction to occur in non-urgent manner pending availability. ?? # Urinary retention: Improved:? - PRN bladder scan/straight cath ?? # HTN - Continue metoprolol # Other Chronic Medical Conditions: - Osteopenia: Calcium carbonate and vitamin D - DVT proph: ambulation; SCDs - Nutrition: Regular diet - Code Status: Full Code IPI Certification I certify that I am a D-H credentialed attending provider with admitting privileges and that the patient meets or has met medical necessity to require an inpatient IPI level of care meeting a minimumof two midnights or is on the CMS inpatient only procedure list (status C) due to: Patient previously met IPI criteria and is now awaiting placement at a half-way facility. FRAN GILLIAM MD 02/05/2018 Hospital Medicine Team Pager: #[phone] * Fran Gilliam MD - 02/04/2018 9:44 PM EDT Hospital Medicine Attending Daily Progress Note Patient Name: Miguel Angel Mason Service: Hospital Medicine Admit Date: 09/02/2017 Hospital Day: 155 Patient Description: Miguel Angel Mason is a 27 y.o. 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 His hospital course has been complicated by hypernatremia (resolved, now recurrent), andurinary retention (resolved). Active Problems: Active Hospital Problems Diagnosis ??? S/P ORIF left acetabulum fracture 09/04/2017 Dr. Lance ??? Diabetes insipidus ??? Panhypopituitarism Resolved Hospital Problems Diagnosis Date Resolved ??? Hypernatremia 01/24/2018 ??? Acute urinary retention 01/24/2018 ??? Postoperative anemia due to acute blood loss 12/09/2017 Interval History / ROS: -somewhat agitated overnight last night, poor sleep -tired today but calm, cooperative, and active today - out and about wheelchair a lot today -no new issues Objective: Vitals: Last Value Range Last 24 hrs Temperature Temp: 36.5 ??C (97.7 ??F) Temp: [35.9 ??C (96.6 ??F)-36.8 ??C (98.2 ??F)] Heart Rate Heart Rate: 99 Heart Rate: [81-99] Blood Pressure BP: 138/81 BP: (117-138)/(60-81) Respiratory Rate Resp: 20 Resp: [17-20] SpO2 SpO2: 99 % SpO2: [98 %-99 %] Weight: Last: 98.9 kg (218 lb 1.6 oz) I/Os: 02/03 0701 - 02/04 0700 In: 2640 [P.O.:2640] Out: 2625 [Urine:2625] Admit: 86.64 kg Physical Exam: Awake, alert, calm, appears comfortable Anicteric, MMM RRR, no murmur CTAB Soft, NT/ND No edema Skin warm/dry, no rash Labs Notable For: Recent Results (from the past 24 hour(s)) Basic Metabolic Panel (non-fasting) Result Value Ref Range Glucose Lvl 93 65 - 199 mg/dL BUN 15 10 - 20 mg/dL Creatinine 0.70 (L) 0.80 - 1.50 mg/dL Sodium 140 135 - 145 mmol/L Potassium 3.6 3.5 - 5.0 mmol/L Chloride 100 98 - 107 mmol/L CO2 23 22 - 31 mmol/L Anion Gap 17 (H) 5 - 15 mmol/L Calcium 9.8 8.5 - 10.5 mg/dL eGFR 129 >=60 mL/min/1.73 m?? eGFR 150 >=60 mL/min/1.73 m?? Micro: None. Radiology/Studies: None new today. Assessment and Plan Miguel Angel Mason is a 27 y.o. 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 His hospital course has been complicated by hypernatremia (now recurrent), and urinary retention (resolved). The patient's DDAVP doses were recently adjusted (see below) with the guidance of the endocrinologyteam, given his hypernatremia (149) earlier this week. The patient's sodium appears to be stable onthis regimen, thus far. We will continue to monitor the patient's sodium closely. The patient is otherwise medically stable and the care management team is working to find a safe discharge plan for the patient. # Left acetabular fracture: s/p operative repair on 09/04/2017 and orthopedics advanced to WBAT BLE (11/21). - Acetaminophen 650mg q8hr - Ibuprofen 400mg q6hr PRN - no need for further Ortho follow up at this time per Ortho - PT/OT ?? # Baseline cognitive impairment: 2/2 prior CVA/hemorrhage from pituitary surgery). Intermittent waxing/waning periods of restlessness and yelling/moaning loudly alternating with periods of relative calm are normal, per caregiver. - Quetiapine 250mg nightly - Trazodone 50mg nightly - Melatonin 9mg nightly - Additional quetiapine 50mg BID PRN agitation - Continue usual non-pharmacological interventions (awake during day, sitter, normalized routine, etc) # DI, Hypernatremia: Sodium intermittently elevated - currently back within the normal range. - Appreciate Endocrinology assistance - DDAVP dosing adjusted as follows: - DDAVP 0.1mg in morning - DDAVP 0.15mg in evening - ensure that he gets 2-3 L of PO fluid intake per day - monitor electrolytes every other day at this point (decrease frequency if Na remains stable) ?? # 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including DI, hypothyroidism, adrenal insufficiency, and hypogonadism): Stable other than hypernatremia (see above) - Hydrocortisone 20mg in AM, 10mg at Noon, - Desmopressin as described above, ensure that he gets between 2-3 L of PO fluid intake daily - Levothyroxine 225mcg daily - Testosterone 5mg gel nightly # Seizure disorder - Zonisamide 200mg nightly ? # Fractured left lower molar: Likely occurred with seizure, no evidence of acute infection. Extraction to occur in non-urgent manner pending availability. ?? # Urinary retention: Improved:? - PRN bladder scan/straight cath ?? # HTN - Continue metoprolol # Other Chronic Medical Conditions: - Osteopenia: Calcium carbonate and vitamin D - DVT proph: ambulation; SCDs - Nutrition: Regular diet - Code Status: Full Code IPI Certification I certify that I am a D-H credentialed attending provider with admitting privileges and that the patient meets or has met medical necessity to require an inpatient IPI level of care meeting a minimumof two midnights or is on the CMS inpatient only procedure list (status C) due to: Patient previously met IPI criteria and is now awaiting placement at a half-way facility. FRAN GILLIAM MD 02/04/2018 Hospital Medicine Team Pager: [phone] * Fran Gillima MD - 02/03/2018 5:05 PM EDT Hospital Medicine Attending Daily Progress Note Patient Name: Miguel Angel Mason Service: Hospital Medicine Admit Date: 09/02/2017 Hospital Day: 154 Patient Description: Miguel Angel Mason is a 27 y.o. 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 His hospital course has been complicated by hypernatremia (resolved, now recurrent), andurinary retention (resolved). Active Problems: Active Hospital Problems Diagnosis ??? S/P ORIF left acetabulum fracture 09/04/2017 Dr. Lance ??? Diabetes insipidus ??? Panhypopituitarism Resolved Hospital Problems Diagnosis Date Resolved ??? Hypernatremia 01/24/2018 ??? Acute urinary retention 01/24/2018 ??? Postoperative anemia due to acute blood loss 12/09/2017 Interval History / ROS: -no events overnight -had a good night per nursing - up late but calm and cooperative -no new issues Objective: Vitals: Last Value Range Last 24 hrs Temperature Temp: 36.6 ??C (97.9 ??F) Temp: [36.6 ??C (97.9 ??F)-36.8 ??C (98.2 ??F)] Heart Rate Heart Rate: 90 Heart Rate: [90-97] Blood Pressure BP: 126/85 BP: (121-126)/(81-85) Respiratory Rate Resp: 18 Resp: [18-19] SpO2 SpO2: 96 % SpO2: [96 %-97 %] Weight: Last: 98.9 kg (218 lb 1.6 oz) I/Os: 02/02 0701 - 02/03 0700 In: 1830 [P.O.:1830] Out: 1550 [Urine:1550] Admit: 86.64 kg Physical Exam: Awake, alert, calm, appears comfortable Anicteric, MMM RRR, no murmur CTAB Soft, NT/ND No edema Skin warm/dry, no rash Labs Notable For: No results found for this or any previous visit (from the past 24 hour(s)). Micro: None. Radiology/Studies: None new today. Assessment and Plan Miguel Angel Mason is a 27 y.o. 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 His hospital course has been complicated by hypernatremia (now recurrent), and urinary retention (resolved). The patient's DDAVP doses were recently adjusted (see below) with the guidance of the endocrinologyteam, given his hypernatremia (149) earlier this week. The patient's sodium appears to be stable onthis regimen, thus far. We will continue to monitor the patient's sodium closely. The patient is otherwise medically stable and the care management team is working to find a safe discharge plan for the patient. # Left acetabular fracture: s/p operative repair on 09/04/2017 and orthopedics advanced to WBAT BLE (11/21). - Acetaminophen 650mg q8hr - Ibuprofen 400mg q6hr PRN - no need for further Ortho follow up at this time per Ortho - PT/OT ?? # Baseline cognitive impairment: 2/2 prior CVA/hemorrhage from pituitary surgery). Intermittent waxing/waning periods of restlessness and yelling/moaning loudly alternating with periods of relative calm are normal, per caregiver. - Quetiapine 250mg nightly - Trazodone 50mg nightly - Melatonin 9mg nightly - Additional quetiapine 50mg BID PRN agitation - Continue usual non-pharmacological interventions (awake during day, sitter, normalized routine, etc) # DI, Hypernatremia: Sodium intermittently elevated - currently back within the normal range. - Appreciate Endocrinology assistance - DDAVP dosing adjusted as follows: - DDAVP 0.1mg in morning - DDAVP 0.15mg in evening - ensure that he gets 2-3 L of PO fluid intake per day - monitor electrolytes every other day at this point (decrease frequency if Na remains stable) ?? # 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including DI, hypothyroidism, adrenal insufficiency, and hypogonadism): Stable other than hypernatremia (see above) - Hydrocortisone 20mg in AM, 10mg at Noon, - Desmopressin as described above, ensure that he gets between 2-3 L of PO fluid intake daily - Levothyroxine 225mcg daily - Testosterone 5mg gel nightly # Seizure disorder - Zonisamide 200mg nightly ? # Fractured left lower molar: Likely occurred with seizure, no evidence of acute infection. Extraction to occur in non-urgent manner pending availability. ?? # Urinary retention: Improved:? - PRN bladder scan/straight cath ?? # HTN - Continue metoprolol # Other Chronic Medical Conditions: - Osteopenia: Calcium carbonate and vitamin D - DVT proph: ambulation; SCDs - Nutrition: Regular diet - Code Status: Full Code IPI Certification I certify that I am a D-H credentialed attending provider with admitting privileges and that the patient meets or has met medical necessity to require an inpatient IPI level of care meeting a minimumof two midnights or is on the CMS inpatient only procedure list (status C) due to: Patient previously met IPI criteria and is now awaiting placement at a half-way facility. FRAN GILLIAM MD 02/03/2018 Hospital Medicine Team Pager: [phone] * Fran Gilliam MD - 02/02/2018 3:40 PM EDT Hospital Medicine Attending Daily Progress Note Patient Name: Miguel Angel Mason Service: Hospital Medicine Admit Date: 09/02/2017 Hospital Day: 153 Patient Description: Miguel Angel Mason is a 27 y.o. 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 His hospital course has been complicated by hypernatremia (resolved, now recurrent), andurinary retention (resolved). Active Problems: Active Hospital Problems Diagnosis ??? S/P ORIF left acetabulum fracture 09/04/2017 Dr. Lance ??? Diabetes insipidus ??? Panhypopituitarism Resolved Hospital Problems Diagnosis Date Resolved ??? Hypernatremia 01/24/2018 ??? Acute urinary retention 01/24/2018 ??? Postoperative anemia due to acute blood loss 12/09/2017 Interval History / ROS: -no events overnight -had a good night -sleeping today -no new issues Objective: Vitals: Last Value Range Last 24 hrs Temperature Temp: 36.6 ??C (97.9 ??F) Temp: -- Heart Rate Heart Rate: 89 Heart Rate: [74-97] Blood Pressure BP: 135/83 BP: (122-135)/(60-83) Respiratory Rate Resp: 16 Resp: [16] SpO2 SpO2: 96 % SpO2: [96 %-98 %] Weight: Last: 98.9 kg (218 lb 1.6 oz) I/Os: 02/01 0701 - 02/02 0700 In: 1260 [P.O.:1260] Out: 2500 [Urine:2500] Admit: 86.64 kg Physical Exam: Resting calmly in bed, appears comfortable Anicteric, MMM RRR, no murmur CTAB Soft, NT/ND No edema Skin warm/dry, no rash Labs Notable For: Recent Results (from the past 24 hour(s)) Basic Metabolic Panel (non-fasting) Result Value Ref Range Glucose Lvl 107 65 - 199 mg/dL BUN 13 10 - 20 mg/dL Creatinine 0.76 (L) 0.80 - 1.50 mg/dL Sodium 144 135 - 145 mmol/L Potassium 3.6 3.5 - 5.0 mmol/L Chloride 104 98 - 107 mmol/L CO2 24 22 - 31 mmol/L Anion Gap 16 (H) 5 - 15 mmol/L Calcium 9.8 8.5 - 10.5 mg/dL eGFR 125 >=60 mL/min/1.73 m?? eGFR 145 >=60 mL/min/1.73 m?? Micro: None. Radiology/Studies: None new today. Assessment and Plan Miguel Angel Mason is a 27 y.o. 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 His hospital course has been complicated by hypernatremia (now recurrent), and urinary retention (resolved). The patient's DDAVP doses were recently adjusted (see below) with the guidance of the endocrinologyteam, given his hypernatremia (149) earlier this week. The patient's sodium appears to be stable onthis regimen, thus far. We will continue to monitor the patient's sodium closely. The patient is otherwise medically stable and the care management team is working to find a safe discharge plan for the patient. # Left acetabular fracture: S/p operative repair on 09/04/2017 and orthopedics advanced to WBAT BLE (11/21). - Acetaminophen 650mg q8hr - Ibuprofen 400mg q6hr PRN - no need for further Ortho follow up at this time per Ortho ?? # Baseline cognitive impairment: 2/2 prior CVA/hemorrhage from pituitary surgery). Intermittent waxing/waning periods of restlessness and yelling/moaning loudly alternating with periods of relative calm are normal, per caregiver. - Quetiapine 250mg nightly - Trazodone 50mg nightly - Melatonin 9mg nightly - Additional quetiapine 50mg BID PRN agitation - Continue usual non-pharmacological interventions (awake during day, sitter, normalized routine, etc) # DI, Hypernatremia: Sodium intermittently elevated - currently back within the normal range. - Appreciate Endocrinology assistance - DDAVP dosing adjusted as follows: - DDAVP 0.1mg in morning - DDAVP 0.15mg in evening - monitor electrolytes every other day at this point (consider decreasing frequency if Na remains stable) ?? # 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including DI, hypothyroidism, adrenal insufficiency, and hypogonadism): Stable other than hypernatremia (see above) - Hydrocortisone 20mg in AM, 10mg at Noon, - Desmopressin as described above - Ensure that he gets between 2-3 L of IPO fluid intake daily - Levothyroxine 225mcg daily - Testosterone 5mg gel nightly # Seizure disorder - Zonisamide 200mg nightly ? # Fractured left lower molar: Likely occurred with seizure, no evidence of acute infection. Extraction to occur in non-urgent manner pending availability. ?? # Urinary retention: Improved:? - PRN bladder scan/straight cath ?? # HTN - Continue metoprolol # Other Chronic Medical Conditions: - Osteopenia: Calcium carbonate and vitamin D - DVT proph: ambulation; SCDs - Nutrition: Regular diet - Code Status: Full Code IPI Certification I certify that I am a D-H credentialed attending provider with admitting privileges and that the patient meets or has met medical necessity to require an inpatient IPI level of care meeting a minimumof two midnights or is on the [facility] inpatient only procedure list (status C) due to: Patient previously met IPI criteria and is now awaiting placement at a half-way facility. FRAN GILLIAM MD 02/02/2018 Hospital Medicine Team Pager: #[phone] * Fran Gilliam MD - 02/01/2018 5:15 PM EDT Hospital Medicine Attending Daily Progress Note Patient Name: Miguel Angel Mason Service: Hospital Medicine Admit Date: 09/02/2017 Hospital Day: 153 Patient Description: Miguel Angel Mason is a 27 y.o. 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 His hospital course has been complicated by hypernatremia (resolved, now recurrent), andurinary retention (resolved). Active Problems: Active Hospital Problems Diagnosis ??? S/P ORIF left acetabulum fracture 09/04/2017 Dr. Lance ??? Diabetes insipidus ??? Panhypopituitarism Resolved Hospital Problems Diagnosis Date Resolved ??? Hypernatremia 01/24/2018 ??? Acute urinary retention 01/24/2018 ??? Postoperative anemia due to acute blood loss 12/09/2017 Interval History / ROS: -no events overnight -having a good day -resting calmly, quietly today -no new complaints or issues today Objective: Vitals: Last Value Range Last 24 hrs Temperature Temp: 36.6 ??C (97.9 ??F) Temp: -- Heart Rate Heart Rate: 74 Heart Rate: [74-97] Blood Pressure BP: 122/72 BP: (122-130)/(60-72) Respiratory Rate Resp: 16 Resp: [16-18] SpO2 SpO2: 96 % SpO2: [96 %-98 %] Weight: Last: 98.9 kg (218 lb 1.6 oz) I/Os: 02/01 0701 - 02/02 0700 In: 1260 [P.O.:1260] Out: 2500 [Urine:2500] Admit: 86.64 kg Physical Exam: Resting calmly in bed, appears comfortable Anicteric, MMM RRR, no murmur CTAB Soft, NT/ND No edema Skin warm/dry, no rash Labs Notable For: Recent Results (from the past 24 hour(s)) Basic Metabolic Panel (non-fasting) Result Value Ref Range Glucose Lvl 119 65 - 199 mg/dL BUN 13 10 - 20 mg/dL Creatinine 0.69 (L) 0.80 - 1.50 mg/dL Sodium 144 135 - 145 mmol/L Potassium 3.9 3.5 - 5.0 mmol/L Chloride 106 98 - 107 mmol/L CO2 22 22 - 31 mmol/L Anion Gap 16 (H) 5 - 15 mmol/L Calcium 9.7 8.5 - 10.5 mg/dL eGFR 130 >=60 mL/min/1.73 m?? eGFR 151 >=60 mL/min/1.73 m?? Micro: None. Radiology/Studies: None new today. Assessment and Plan Miguel Angel Mason is a 27 y.o. 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 His hospital course has been complicated by hypernatremia (now recurrent), and urinary retention (resolved). The patient's DDAVP doses were recently adjusted (see below) with the guidance of the endocrinologyteam, given his hypernatremia (149) earlier this week. The patient's sodium appears to be stable onthis regimen, thus far. We will continue to monitor the patient's sodium closely. The patient is otherwise medically stable and the care management team is working to find a safe discharge plan for the patient. # Left acetabular fracture: S/p operative repair on 09/04/2017 and orthopedics advanced to WBAT BLE (11/21). - Acetaminophen 650mg q8hr - Ibuprofen 400mg q6hr PRN - Discussed with orthopedic surgery this week who do not feel any need for further follow up at this time ?? # Baseline cognitive impairment: 2/2 prior CVA/hemorrhage from pituitary surgery). Intermittent waxing/waning periods of restlessness and yelling/moaning loudly alternating with periods of relative calm are normal, per caregiver. - Quetiapine 250mg nightly - Trazodone 50mg nightly - Melatonin 9mg nightly - Additional quetiapine 50mg BID PRN for agitation - Continue usual non-pharmacological interventions (awake during day, sitter, normalized routine, etc) # DI, Hypernatremia: Sodium 149 earlier this week and now back within the normal range. - Appreciate Endocrinology assistance - DDAVP dosing adjusted as following: - DDAVP 0.1mg in morning - DDAVP 0.15mg in evening - Will continue to trend electrolytes daily at this point (consider decreasing frequency if Na remains stable) ?? # 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including DI, hypothyroidism, adrenal insufficiency, and hypogonadism): Stable other than hypernatremia (see above) - Hydrocortisone 20mg in AM, 10mg at Noon, - Desmopressin as described above - Ensure that he gets between 2-3 L of IPO fluid intake daily - Levothyroxine 225mcg daily - Testosterone 5mg gel nightly # Seizure disorder - Zonisamide 200mg nightly ? # Fractured left lower molar: Likely occurred with seizure, no evidence of acute infection. Extraction to occur in non-urgent manner pending availability. ?? # Urinary retention: Improved:? - PRN bladder scan/straight cath ?? # HTN - Continue metoprolol # Other Chronic Medical Conditions: - Osteopenia: Calcium carbonate and vitamin D - DVT proph: ambulation; SCDs - Nutrition: Regular diet - Code Status: Full Code IPI Certification I certify that I am a D-H credentialed attending provider with admitting privileges and that the patient meets or has met medical necessity to require an inpatient IPI level of care meeting a minimumof two midnights or is on the [facility] inpatient only procedure list (status C) due to: Patient previously met IPI criteria and is now awaiting placement at a half-way facility. FRAN GILLIAM MD 02/02/2018 Hospital Medicine Team Pager: #[phone] * Fran Gilliam MD - 01/31/2018 12:10 PM EDT Hospital Medicine Attending Daily Progress Note Patient Name: Miguel Angel Mason Service: Hospital Medicine Admit Date: 09/02/2017 Hospital Day: 152 Patient Description: Miguel Angel Mason is a 27 y.o. 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 His hospital course has been complicated by hypernatremia (resolved, now recurrent), andurinary retention (resolved). Active Problems: Active Hospital Problems Diagnosis ??? S/P ORIF left acetabulum fracture 09/04/2017 Dr. Lance ??? Diabetes insipidus ??? Panhypopituitarism Resolved Hospital Problems Diagnosis Date Resolved ??? Hypernatremia 01/24/2018 ??? Acute urinary retention 01/24/2018 ??? Postoperative anemia due to acute blood loss 12/09/2017 Interval History / ROS: -no events overnight -resting calmly, quietly today -no new complaints or issues today Objective: Vitals: Last Value Range Last 24 hrs Temperature Temp: 36.6 ??C (97.9 ??F) Temp: [36.6 ??C (97.9 ??F)] Heart Rate Heart Rate: (refused) Heart Rate: [100] Blood Pressure BP: 135/70 BP: (125-135)/(70-74) Respiratory Rate Resp: 18 Resp: [16-18] SpO2 SpO2: 98 % SpO2: [97 %-98 %] Weight: Last: 98.9 kg (218 lb 1.6 oz) I/Os: 01/31 0701 - 02/01 0700 In: 2720 [P.O.:2720] Out: 700 [Urine:700] Admit: 86.64 kg Physical Exam: Resting calmly in bed, appears comfortable Anicteric, MMM RRR, no murmur CTAB Soft, NT/ND No edema Skin warm/dry, no rash Labs Notable For: Recent Results (from the past 24 hour(s)) Basic Metabolic Panel (non-fasting) Result Value Ref Range Glucose Lvl 99 65 - 199 mg/dL BUN 16 10 - 20 mg/dL Creatinine 0.66 (L) 0.80 - 1.50 mg/dL Sodium 142 135 - 145 mmol/L Potassium 3.8 3.5 - 5.0 mmol/L Chloride 105 98 - 107 mmol/L CO2 22 22 - 31 mmol/L Anion Gap 15 5 - 15 mmol/L Calcium 9.6 8.5 - 10.5 mg/dL eGFR 132 >=60 mL/min/1.73 m?? eGFR 154 >=60 mL/min/1.73 m?? Micro: None. Radiology/Studies: None new today. Assessment and Plan Miguel Angel Mason is a 27 y.o. 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 His hospital course has been complicated by hypernatremia (now recurrent), and urinary retention (resolved). The patient's DDAVP doses were recently adjusted (see below) with the guidance of the endocrinologyteam, given his hypernatremia (149) earlier this week. The patient's sodium appears to be stable onthis regimen, thus far. We will continue to monitor the patient's sodium closely. The patient is otherwise medically stable and the care management team is working to find a safe discharge plan for the patient. # Left acetabular fracture: S/p operative repair on 09/04/2017 and orthopedics advanced to WBAT BLE (11/21). - Acetaminophen 650mg q8hr - Ibuprofen 400mg q6hr PRN - Discussed with orthopedic surgery this week who do not feel any need for further follow up at this time ?? # Baseline cognitive impairment: 2/2 prior CVA/hemorrhage from pituitary surgery). Intermittent waxing/waning periods of restlessness and yelling/moaning loudly alternating with periods of relative calm are normal, per caregiver. - Quetiapine 250mg nightly - Trazodone 50mg nightly - Melatonin 9mg nightly - Additional quetiapine 50mg BID PRN for agitation - Continue usual non-pharmacological interventions (awake during day, sitter, normalized routine, etc) # DI, Hypernatremia: Sodium 149 earlier this week and now back within the normal range. - Appreciate Endocrinology assistance - DDAVP dosing adjusted as following: - DDAVP 0.1mg in morning - DDAVP 0.15mg in evening - Will continue to trend electrolytes daily at this point (consider decreasing frequency if Na remains stable) ?? # 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including DI, hypothyroidism, adrenal insufficiency, and hypogonadism): Stable other than hypernatremia (see above) - Hydrocortisone 20mg in AM, 10mg at Noon, - Desmopressin as described above - Ensure that he gets between 2-3 L of IPO fluid intake daily - Levothyroxine 225mcg daily - Testosterone 5mg gel nightly # Seizure disorder - Zonisamide 200mg nightly ? # Fractured left lower molar: Likely occurred with seizure, no evidence of acute infection. Extraction to occur in non-urgent manner pending availability. ?? # Urinary retention: Improved:? - PRN bladder scan/straight cath ?? # HTN - Continue metoprolol # Other Chronic Medical Conditions: - Osteopenia: Calcium carbonate and vitamin D - DVT proph: ambulation; SCDs - Nutrition: Regular diet - Code Status: Full Code IPI Certification I certify that I am a D-H credentialed attending provider with admitting privileges and that the patient meets or has met medical necessity to require an inpatient IPI level of care meeting a minimumof two midnights or is on the [facility] inpatient only procedure list (status C) due to: Patient previously met IPI criteria and is now awaiting placement at a half-way facility. FRAN GILLIAM MD 02/01/2018 Hospital Medicine Team Pager: #[phone] * Tricia Gerber RN - 01/30/2018 3:33 PM EDT Sent message to Bhakti Riojas- Senior Belt Fixer with [facility] [phone]. Request update on status of search for a home. Tricia Gerber RN Case Homemaker Companion of Care Management [email or web address] Pager: [phone] * Noah Menard MD - 01/30/2018 8:06 AM EDT Hospital Medicine Attending Daily Progress Note Patient Name: Miguel Angel Mason Service: Hospital Medicine Admit Date: 09/02/2017 Hospital Day: 150 Patient Description: Miguel Angel Mason is a 27 y.o. 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 His hospital course has been complicated by hypernatremia (resolved, now recurrent), andurinary retention (resolved). Active Problems: Active Hospital Problems Diagnosis ??? S/P ORIF left acetabulum fracture 09/04/2017 Dr. Lance ??? Diabetes insipidus ??? Panhypopituitarism Resolved Hospital Problems Diagnosis Date Resolved ??? Hypernatremia 01/24/2018 ??? Acute urinary retention 01/24/2018 ??? Postoperative anemia due to acute blood loss 12/09/2017 Subjective: - Miguel Angel did not report any pain or other new symptoms this morning - Patient's sitter reports that both yesterday and today have been good days and that Miguel Angel has been enjoying short walks inside and outside of his room Major 24 Hour Events: - No major changes to management yesterday - No acute events overnight Objective: Vitals: Last Value Range Last 24 hrs Temperature Temp: 36.6 ??C (97.9 ??F) Temp: [36.5 ??C (97.7 ??F)-36.6 ??C (97.9 ??F)] Heart Rate Heart Rate: 89 Heart Rate: [89-113] Blood Pressure BP: 138/76 BP: (120-147)/(70-87) Respiratory Rate Resp: 18 Resp: [18-20] SpO2 SpO2: 98 % SpO2: [97 %-98 %] Weight: Last: 98.9 kg (218 lb 1.6 oz) I/Os: 01/29 0701 - 01/30 0700 In: 3180 [P.O.:3180] Out: 3200 [Urine:3200] Admit: 86.64 kg Physical Exam: GEN Resting in bed wrapped in covers, alert, in NAD HEENT Conjunctiva are anicteric and without injection, oropharynx clear, moist mucus membranes MSK No peripheral edema appreciated. DERM Skin warm and dry. No rashes appreciated. NEURO General: Alert but not able to answer orientation questions Cranial Nerves: EOMI, no facial asymmetry, hearing intact to normal voice Strength: Moves all 4 extremities without issue Labs Notable For: Na 140 (slowly down-trending from peak of 149 on 01/27), K 3.8, Cl 104, CO2 21, BUN 12, Cr 0.62 Micro: None. Radiology/Studies: None new today. Assessment and Plan Miguel Angel Mason is a 27 y.o. 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 His hospital course has been complicated by hypernatremia (now recurrent), and urinary retention (resolved). The patient's DDAVP doses were recently adjusted (see below) with the guidance of the endocrinologyteam, given his hypernatremia (149) earlier this week. The patient's sodium appears to be stable onthis regimen, thus far. We will continue to monitor the patient's sodium closely. The patient is otherwise medically stable and the care management team is working to find a safe discharge plan for the patient. # Left acetabular fracture: S/p operative repair on 09/04/2017 and orthopedics advanced to WBAT BLE (11/21). - Acetaminophen 650mg q8hr - Ibuprofen 400mg q6hr PRN - Discussed with orthopedic surgery this week who do not feel any need for further follow up at this time ?? # Baseline cognitive impairment: 2/2 prior CVA/hemorrhage from pituitary surgery). Intermittent waxing/waning periods of restlessness and yelling/moaning loudly alternating with periods of relative calm are normal, per caregiver. - Quetiapine 250mg nightly - Trazodone 50mg nightly - Melatonin 9mg nightly - Additional quetiapine 50mg BID PRN for agitation - Continue usual non-pharmacological interventions (awake during day, sitter, normalized routine, etc) # Hypernatremia: Sodium 149 earlier this week and now back within the normal range. - Appreciate the care of the nephrology team - DDAVP dosing adjusted as following: - DDAVP 0.1mg in morning - DDAVP 0.15mg in evening - Will continue to trend electrolytes daily at this point (can discuss decreasing frequency with endocrinology) ?? # 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including DI, hypothyroidism, adrenal insufficiency, and hypogonadism): Stable other than hypernatremia (see above) - Hydrocortisone 20mg in AM, 10mg at Noon, - Desmopressin as described above - Ensure between 2-3L of fluid intake daily - Levothyroxine 225mcg daily - Follow up electrolytes every other day - Testosterone 5mg gel nightly # Seizure disorder - Zonisamide 200mg nightly ? # Fractured left lower molar: Likely occurred with seizure, no evidence of acute infection. Extraction to occur in non-urgent manner pending availability, but per dentistry, not likely anytime soon. ?? # Urinary retention: Improved:? - PRN bladder scan/straight cath ?? # HTN - Continue metoprolol # Other Chronic Medical Conditions: - Osteopenia: Calcium carbonate and vitamin D # Routine: - Prophylaxis: GI: Not indicated DVT: Regular ambulation; SCDs Glycemic control: Not indicated - Nutrition: Regular diet - Code Status: Full Code IPI Certification I certify that I am a D-H credentialed attending provider with admitting privileges and that the patient meets or has met medical necessity to require an inpatient IPI level of care meeting a minimumof two midnights or is on the CMS inpatient only procedure list (status C) due to: Patient previously met IPI criteria and is now awaiting placement at a half-way facility. LOS >48hrs. Noah Menard MD 01/30/2018 Hospital Medicine Team Pager: #[phone] * Noah Menard MD - 01/29/2018 7:52 AM EDT Hospital Medicine Attending Daily Progress Note Patient Name: Miguel Angel Mason Service: Hospital Medicine Admit Date: 09/02/2017 Hospital Day: 149 Patient Description: Miguel Angel Mason is a 27 y.o. 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 His hospital course has been complicated by hypernatremia (resolved, now recurrent), andurinary retention (resolved). Active Problems: Active Hospital Problems Diagnosis ??? S/P ORIF left acetabulum fracture 09/04/2017 Dr. Lance ??? Diabetes insipidus ??? Panhypopituitarism Resolved Hospital Problems Diagnosis Date Resolved ??? Hypernatremia 01/24/2018 ??? Acute urinary retention 01/24/2018 ??? Postoperative anemia due to acute blood loss 12/09/2017 Subjective: - Patient reports he is feeling well today - Patient and his sitter both express interest in getting Miguel Angel to take several walks today - Patient doesn't describe any pain, fevers, or other new symptoms Major 24 Hour Events: - DDAVP dosing adjusted yesterday, with endocrinology assistance (see below) - No acute events overnight Objective: Vitals: Last Value Range Last 24 hrs Temperature Temp: 36.2 ??C (97.2 ??F) Temp: [36.2 ??C (97.2 ??F)-36.9 ??C (98.4 ??F)] Heart Rate Heart Rate: 95 Heart Rate: [95] Blood Pressure BP: 117/63 BP: (117-147)/(63-81) Respiratory Rate Resp: 14 Resp: [14-19] SpO2 SpO2: 99 % SpO2: [99 %-100 %] Weight: Last: 95.7 kg (211 lb) I/Os: 01/28 0701 - 01/29 0700 In: 2680 [P.O.:2680] Out: 1250 [Urine:1250] Admit: 86.64 kg Physical Exam: GEN Resting in bed wrapped in covers, alert, in NAD HEENT Conjunctiva are anicteric and without injection, oropharynx clear, moist mucus membranes CV RRR, normal S1/S2, no murmurs/rubs/gallops appreciated PULM Normal respiratory effort, clear to auscultation bilaterally, no wheezes or crackles appreciated in anterior lung medellin GI Abdomen soft, non-tender, non-distended, + bowel sounds, no guarding, no rebound MSK No peripheral edema appreciated. DERM Skin warm and dry. No rashes appreciated. NEURO General: Alert but not able to answer orientation questions Cranial Nerves: EOMI, no facial asymmetry, hearing intact to normal voice Strength: Moves all 4 extremities without issue Labs Notable For: Na 142 (improved from 149 yesterday), K 3.4, Cl 101, CO2 23, Cr 1.04, BUN 22 Micro: None. Radiology/Studies: None new today. Assessment and Plan Miguel Angel Mason is a 27 y.o. 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 His hospital course has been complicated by hypernatremia (now recurrent), and urinary retention (resolved). The patient's DDAVP doses were recently adjusted (see below) with the guidance of the endocrinologyteam, given his hypernatremia (149) earlier this week. The patient's sodium appears to be stable onthis regimen, thus far. We will continue to monitor the patient's sodium closely. The patient is otherwise medically stable and the care management team is working to find a safe discharge plan for the patient. # Left acetabular fracture: S/p operative repair on 09/04/2017 and orthopedics advanced to WBAT BLE (11/21). - Acetaminophen 650mg q8hr - Ibuprofen 400mg q6hr PRN - Discussed with orthopedic surgery this week who do not feel any need for further follow up at this time ?? # Baseline cognitive impairment: 2/2 prior CVA/hemorrhage from pituitary surgery). Intermittent waxing/waning periods of restlessness and yelling/moaning loudly alternating with periods of relative calm are normal, per caregiver. - Quetiapine 250mg nightly - Trazodone 50mg nightly - Melatonin 9mg nightly - Additional quetiapine 50mg BID PRN for agitation - Continue usual non-pharmacological interventions (awake during day, sitter, normalized routine, etc) # Hypernatremia: Sodium 149 earlier this week and now back within the normal range. - Appreciate the care of the nephrology team - DDAVP dosing adjusted as following: - DDAVP 0.1mg in morning - DDAVP 0.15mg in evening - Will continue to trend electrolytes daily at this point ?? # 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including DI, hypothyroidism, adrenal insufficiency, and hypogonadism): Stable other than hypernatremia (see above) - Hydrocortisone 20mg in AM, 10mg at Noon, - Desmopressin as described above - Ensure between 2-3L of fluid intake daily - Levothyroxine 225mcg daily - Follow up electrolytes every other day - Testosterone 5mg gel nightly # Seizure disorder - Zonisamide 200mg nightly ? # Fractured left lower molar: Likely occurred with seizure, no evidence of acute infection. Extraction to occur in non-urgent manner pending availability, but per dentistry, not likely anytime soon. ?? # Urinary retention: Improved:? - PRN bladder scan/straight cath ?? # HTN - Continue metoprolol # Other Chronic Medical Conditions: - Osteopenia: Calcium carbonate and vitamin D # Routine: - Prophylaxis: GI: Not indicated DVT: Regular ambulation; SCDs Glycemic control: Not indicated - Nutrition: Regular diet - Code Status: Full Code IPI Certification I certify that I am a D-H credentialed attending provider with admitting privileges and that the patient meets or has met medical necessity to require an inpatient IPI level of care meeting a minimumof two midnights or is on the CMS inpatient only procedure list (status C) due to: Patient previously met IPI criteria and is now awaiting placement at a half-way facility. LOS >48hrs. 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 Endocrinology consult requested to help manage panhypopituitarism and diabetes insipidus. Interim events: upward trend of sodium level to 149. Change in DDAVP dosing recommended. Past Surgical History: Procedure Laterality Date ??? PRO OPEN CROSSCUTTER ROLLED GLASS FIX ACETABULAR FX Left 09/04/2017 @OPEN TREATMENT, ACETABULAR FX (WRVU 25.41) performed by Amy Lance MD at [facility] MAIN OR Allergies Allergen Reactions ??? Lopid [Gemfibrozil] Current Medications: Scheduled Meds: ??? desmopressin 0.1 mg Oral QAM ??? desmopressin 0.15 mg Oral Nightly ??? levothyroxine 225 mcg Oral QAM ??? metoprolol succinate 50 mg Oral Daily ??? traZODone 50 mg Oral Nightly ??? acetaminophen 650 mg Oral TID ??? melatonin 9 mg Oral Nightly ??? QUEtiapine 250 mg Oral Nightly ??? calcium carbonate 500 mg Oral Nightly ??? hydrocortisone 10 mg Oral Daily at Noon ??? senna-docusate 2 tablet Oral BID ??? testosterone 5 g Transdermal Nightly ??? methyl salicylate-menthol Topical (Top) BID ??? cholecalciferol (Vitamin D3) 1,000 Units Oral Daily ??? hydrocortisone 20 mg Oral QAM ??? pantoprazole 40 mg Oral QAM AC ??? 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 Endocrinology consult requested to help manage panhypopituitarism and diabetes insipidus. Patient was seen by endocrinology team yesterday regarding rise in sodium to 149. It seems as though his sodium has been steadily rising over the past sodium checks and when he has run into issues inthe past it has largely been related to hypernatremia. He has required intermittent extra doses of DDAVP on occasion. Yesterday we recommend a dose change in DDAVP to total a daily dose of 2.5 mg. Wealso suggested a change in timing of the dose to BID for ease. This morning sodium level was more appropriate at 142. Plan: --- Best attempt to estimate/measure urine output ?? --- Best attempt to track fluid intake and stick to monitored fluids by bedside sitters ?? --- Please sure daily sodium checks ?? --- Would suggest to continue current regimen of 0.1 mg morning and 0.15 mg evening Thank you for allowing us participate in the care of this patient. Patient was discussed with the attending provider, Dr. Mccauley. Lindsey Walsh, Endocrinology, Diabetes and Metabolism Fellow 01/28/2018 8:29 AM I have seen the patient and reviewed Dr. Lindsey Walsh's above history and I agree with the details as written. The assessment and plan were formulated in discussion with me and I agree with them as documented. Yadi Mccauley MD, PhD, FACP, FACE I have seen the patient and reviewed Dr. Lindsey Walsh's above history and I agree with the details as written. The assessment and plan were formulated in discussion with me and I agree with them as documented. Yadi Mccauley MD, PhD, FACP, FACE * Noah Menard MD - 01/28/2018 7:51 AM EDT Hospital Medicine Attending Daily Progress Note Patient Name: Miguel Angel Mason Service: Hospital Medicine Admit Date: 09/02/2017 Hospital Day: 148 Patient Description: Miguel Angel Mason is a 27 y.o. 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 His hospital course has been complicated by hypernatremia (resolved, now recurrent), andurinary retention (resolved). Active Problems: Active Hospital Problems Diagnosis ??? S/P ORIF left acetabulum fracture 09/04/2017 Dr. Lance ??? Diabetes insipidus ??? Panhypopituitarism Resolved Hospital Problems Diagnosis Date Resolved ??? Hypernatremia 01/24/2018 ??? Acute urinary retention 01/24/2018 ??? Postoperative anemia due to acute blood loss 12/09/2017 Subjective: - Patient again reports that he is awesome today - Has been eating and drinking without issue - Does not describe any pain, nausea, or vomiting Major 24 Hour Events: - No acute events overnight - Sodium increased to 149 yesterday - Endocrinology recommended giving an additional one time dose of DDAVP 0.05mg PO - Endocrinology team also recommended changing future DDAVP dosing to 0.1mg in morning and 0.15mg in evening Objective: Vitals: Last Value Range Last 24 hrs Temperature Temp: 36.9 ??C (98.4 ??F) Temp: [36.6 ??C (97.9 ??F)-36.9 ??C (98.4 ??F)] Heart Rate Heart Rate: 95 Heart Rate: [89-104] Blood Pressure BP: 147/81 BP: (125-147)/(74-81) Respiratory Rate Resp: 19 Resp: [14-19] SpO2 SpO2: 100 % SpO2: [98 %-100 %] Weight: Last: 95.7 kg (211 lb) I/Os: 01/27 0701 - 01/28 0700 In: 3350 [P.O.:3350] Out: 1999 [Urine:2000] Admit: 86.64 kg Physical Exam: GEN Resting in bed wrapped in covers, alert, in NAD HEENT Conjunctiva are anicteric and without injection, oropharynx clear, moist mucus membranes CV RRR, normal S1/S2, no murmurs/rubs/gallops appreciated PULM Normal respiratory effort, clear to auscultation bilaterally, no wheezes or crackles appreciated in anterior lung medellin GI Abdomen soft, non-tender, non-distended, + bowel sounds, no guarding, no rebound MSK No peripheral edema appreciated. DERM Skin warm and dry. No rashes appreciated. NEURO General: Alert but not able to answer orientation questions Cranial Nerves: EOMI, no facial asymmetry, hearing intact to normal voice Strength: Moves all 4 extremities without issue Labs Notable For: Na 142 (improved from 149 yesterday), K 3.4, Cl 101, CO2 23, Cr 1.04, BUN 22 Micro: None. Radiology/Studies: None new today. Assessment and Plan Miguel Angel Mason is a 27 y.o. 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 His hospital course has been complicated by hypernatremia (now recurrent), and urinary retention (resolved). The patient received an extra one-time dose of DDAVP yesterday evening, per endocrinology team recommendations. The patient's sodium has now normalized to 142. The endocrinology team has recommended some slight adjustments to his DDAVP dosing (see below), which will make today with a plan to closely monitor the patient's electrolytes. # Left acetabular fracture: S/p operative repair on 09/04/2017 and orthopedics advanced to WBAT BLE (11/21). - Acetaminophen 650mg q8hr - Ibuprofen 400mg q6hr PRN - Discussed with orthopedic surgery this week who do not feel any need for further follow up at this time ?? # Baseline cognitive impairment: 2/2 prior CVA/hemorrhage from pituitary surgery). Intermittent waxing/waning periods of restlessness and yelling/moaning loudly alternating with periods of relative calm are normal, per caregiver. - Quetiapine 250mg nightly - Trazodone 50mg nightly - Melatonin 9mg nightly - Additional quetiapine 50mg BID PRN for agitation - Continue usual non-pharmacological interventions (awake during day, sitter, normalized routine, etc) # Hypernatremia: Sodium 149 yesterday and improved to 142 today. - DDAVP dosing adjusted as following: - DDAVP 0.1mg in morning - DDAVP 0.15mg in evening - Will continue to trend electrolytes daily at this point ?? # 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including DI, hypothyroidism, adrenal insufficiency, and hypogonadism): Stable other than hypernatremia (see above) - Hydrocortisone 20mg in AM, 10mg at Noon, - Desmopressin as described above - Ensure between 2-3L of fluid intake daily - Levothyroxine 225mcg daily - Follow up electrolytes every other day - Testosterone 5mg gel nightly # Seizure disorder - Zonisamide 200mg nightly ? # Fractured left lower molar: Likely occurred with seizure, no evidence of acute infection. Extraction to occur in non-urgent manner pending availability, but per dentistry, not likely anytime soon. ?? # Urinary retention: Improved:? - PRN bladder scan/straight cath ?? # HTN - Continue metoprolol # Other Chronic Medical Conditions: - Osteopenia: Calcium carbonate and vitamin D # Routine: - Prophylaxis: GI: Not indicated DVT: Regular ambulation; SCDs Glycemic control: Not indicated - Nutrition: Regular diet - Code Status: Full Code IPI Certification I certify that I am a D-H credentialed attending provider with admitting privileges and that the patient meets or has met medical necessity to require an inpatient IPI level of care meeting a minimumof two midnights or is on the [facility] inpatient only procedure list (status C) due to: Patient previously met IPI criteria and is now awaiting placement at a half-way facility. LOS >48hrs. Noah Menard MD 01/28/2018 Hospital Medicine Team Pager: #[phone] * Yadi Mccauley MD - 01/27/2018 4:19 PM EDT Images from the original note were not included. 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 Endocrinology consult requested to help manage panhypopituitarism and diabetes insipidus. Past Surgical History: Procedure Laterality Date ??? PRO OPEN CROSSCUTTER ROLLED GLASS FIX ACETABULAR FX Left 09/04/2017 @OPEN TREATMENT, ACETABULAR FX (WRVU 25.41) performed by Amy Lanec MD at [facility] MAIN OR Allergies Allergen Reactions ??? Lopid [Gemfibrozil] Current Medications: Scheduled Meds: ??? levothyroxine 225 mcg Oral QAM ??? desmopressin 0.05 mg Oral 2 times per day ??? desmopressin 0.1 mg Oral Nightly ??? metoprolol succinate 50 mg Oral Daily ??? traZODone 50 mg Oral Nightly ??? acetaminophen 650 mg Oral TID ??? melatonin 9 mg Oral Nightly ??? QUEtiapine 250 mg Oral Nightly ??? calcium carbonate 500 mg Oral Nightly ??? hydrocortisone 10 mg Oral Daily at Noon ??? senna-docusate 2 tablet Oral BID ??? testosterone 5 g Transdermal Nightly ??? methyl salicylate-menthol Topical (Top) BID ??? cholecalciferol (Vitamin D3) 1,000 Units Oral Daily ??? hydrocortisone 20 mg Oral QAM ??? pantoprazole 40 mg Oral QAM AC ??? 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 Endocrinology consult requested to help manage panhypopituitarism and diabetes insipidus. Endocrinology team is now reconnecting with this patient regarding increasing sodium on this mornings lab check. This patients sodium has been steady since 01/17/2018 with a rise today to 149. On review of his chart he had no missed doses of his usual regimen of DDAVP 0.05 mcg in the morning and afternoon and 0.1 mcg in the evening. According to his caregivers, his intake and output is unchanged from previous days however, again output can hardly be accurately measured. I personally reviewed hischart and there have been no missed doses of DDAVP to result in this sodium rise according to the patients MAR. Will suggest the follow management plan as outlined below. Plan: --- Best attempt to estimate/measure urine output --- Best attempt to track fluid intake and stick to monitored fluids by bedside sitters --- Suggest closer than routine monitoring of sodium levels for now (at least daily sodium levels) --- Recommend to adjust DDAVP regimen as follows: 0.1 mg morning and 0.15 evening (for ease of dosing only two times daily rather than three times daily given effectiveness for 12-24 hours) Thank you for allowing us participate in the care of this patient. Patient was discussed with the attending provider, Dr. Mccauley. Lindsey Walsh, Endocrinology, Diabetes and Metabolism Fellow 01/27/2018 4:19 PM I have seen the patient and reviewed Dr. Lindsey Walsh's above history and I agree with the details as written. The assessment and plan were formulated in discussion with me and I agree with them as documented. Yadi Mccauley MD, PhD, FACP, FACE. * Tricia Gerber RN - 01/27/2018 12:06 PM EDT Late note for 01/23: Met with Bhakti Riojas- Senior Belt Fixer with [facility] [phone]. We reviewed patient and his needs. Expressed to her concerns for the disservice that has been done to this patient. He has remained in the hospital for an extended amount of time and [facility] has not been responsive or assistive in finding placement. She reports that she is the newly assigned point person for his case and she is actively pursuing an appropriate home. Stated that she is currently working with a realtor to find a home or mobile home for Miguel Angel where they would also provide 24/hrcare to him. She assured me that both her and the state are working very hard. Case management will continue to follow and assist with discharge planning needs. Tricia Gerber RN Case Homemaker Companion of Care Management [email or web address] Pager: [phone] * Noah Menard MD - 01/27/2018 7:40 AM EDT Hospital Medicine Attending Daily Progress Note Patient Name: Miguel Angel Mason Service: Hospital Medicine Admit Date: 09/02/2017 Hospital Day: 147 Patient Description: Miguel Angel Mason is a 27 y.o. 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 His hospital course has been complicated by hypernatremia (resolved, now recurrent), and urinary retention (resolved). Active Problems: Active Hospital Problems Diagnosis ??? S/P ORIF left acetabulum fracture 09/04/2017 Dr. Lance ??? Diabetes insipidus ??? Panhypopituitarism Resolved Hospital Problems Diagnosis Date Resolved ??? Hypernatremia 01/24/2018 ??? Acute urinary retention 01/24/2018 ??? Postoperative anemia due to acute blood loss 12/09/2017 Subjective: - Patient tells me he feels awesome this morning - Happily eating lunch and does not describe any pain, nausea, vomiting, thirst, or other new symptoms this morning - Patient's sitter notes that the patient likely did not have much to drink between the hours of 2100 and 0600; unclear if this is because the patient wasn't offered anything to drink or if he was truly not thirsty Major 24 Hour Events: - No acute events overnight - Sodium increased to 149 this morning Objective: Vitals: Last Value Range Last 24 hrs Temperature Temp: 36.8 ??C (98.2 ??F) Temp: [36.8 ??C (98.2 ??F)] Heart Rate Heart Rate: 89 Heart Rate: [89-109] Blood Pressure BP: 133/72 BP: (125-133)/(72-77) Respiratory Rate Resp: 18 Resp: [18-22] SpO2 SpO2: 98 % SpO2: [97 %-98 %] Weight: Last: 95.7 kg (211 lb) I/Os: 01/26 701 - 01/27 0700 In: 3021 [P.O.:2601; I.V.:420] Out: 3050 [Urine:3050] Admit: 86.64 kg Physical Exam: GEN Resting in bed without clothing or covers, alert, in NAD HEENT Conjunctiva are anicteric and without injection, oropharynx clear, moist mucus membranes CV RRR, normal S1/S2, no murmurs/rubs/gallops appreciated PULM Normal respiratory effort, clear to auscultation bilaterally, no wheezes or crackles appreciated in anterior lung medellin GI Abdomen soft, non-tender, non-distended, + bowel sounds, no guarding, no rebound MSK No peripheral edema appreciated. DERM Skin warm and dry. No rashes appreciated. NEURO General: Alert but not able to answer orientation questions Cranial Nerves: EOMI, no facial asymmetry, hearing intact to normal voice Strength: Moves all 4 extremities without issue Labs Notable For: Na 149, K 3.8, Cl 109, CO2 25 Free T4 (01/26) of 0.95 Micro: None. Radiology/Studies: None new today. Assessment and Plan Miguel Angel Mason is a 27 y.o. 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 His hospital course has been complicated by hypernatremia (resolved), and urinary retention (resolved, now recurrent). The patient has recurrent hypernatremia this morning. This may be secondary to poor PO intake in the overnight hours before his electrolyte check. However, it is difficult to discern if this is due to poor thirst or inability to access liquid overnight. I will discuss further with endocrine and follow their recommendations regarding potential modification to DDAVP dosing. # Left acetabular fracture: S/p operative repair on 09/04/2017 and orthopedics advanced to WBAT BLE (11/21). - Acetaminophen 650mg q8hr - Ibuprofen 400mg q6hr PRN - Discussed with orthopedic surgery today who does not feel any need for further follow up at this time ?? # Baseline cognitive impairment: 2/2 prior CVA/hemorrhage from pituitary surgery). Intermittent waxing/waning periods of restlessness and yelling/moaning loudly alternating with periods of relative calm are normal, per caregiver. - Quetiapine 250mg nightly - Trazodone 50mg nightly - Melatonin 9mg nightly - Additional quetiapine 50mg BID PRN for agitation - Continue usual non-pharmacological interventions (awake during day, sitter, normalized routine, etc) # Hypernatremia: Sodium 149 this AM - Will discuss observation, vs DDAVP dosing modification with endocrinology today ?? 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 # Fractured left lower molar: Likely occurred with seizure, no evidence of acute infection. Extraction to occur in non-urgent manner pending availability, but per dentistry, not likely anytime soon. ?? # Urinary retention: Improved:? - PRN bladder scan/straight cath ?? # HTN - Continue metoprolol # Other Chronic Medical Conditions: - Osteopenia: Calcium carbonate and vitamin D # Routine: - Prophylaxis: GI: Not indicated DVT: Regular ambulation; SCDs Glycemic control: Not indicated - Nutrition: Regular diet - Code Status: Full Code IPI Certification I certify that I am a D-H credentialed attending provider with admitting privileges and that the patient meets or has met medical necessity to require an inpatient IPI level of care meeting a minimumof two midnights or is on the CMS inpatient only procedure list (status C) due to: Patient previously met IPI criteria and is now awaiting placement at a half-way facility. LOS >48hrs. Noah Menard MD 01/27/2018 Hospital Medicine Team Pager: #[phone] * Noah Menard MD - 01/26/2018 7:40 AM EDT Hospital Medicine Attending Daily Progress Note Patient Name: Miguel Angel Mason Service: Hospital Medicine Admit Date: 09/02/2017 Hospital Day: 146 Patient Description: Miguel Angel Mason is a 27 y.o. 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 His hospital course has been complicated by hypernatremia (resolved), and urinary retention (resolved). The patient is now medically ready for discharge and awaiting placement at a half-way facility. Active Problems: Active Hospital Problems Diagnosis ??? S/P ORIF left acetabulum fracture 09/04/2017 Dr. Lance ??? Diabetes insipidus ??? Panhypopituitarism Resolved Hospital Problems Diagnosis Date Resolved ??? Hypernatremia 01/24/2018 ??? Acute urinary retention 01/24/2018 ??? Postoperative anemia due to acute blood loss 12/09/2017 Subjective: - Patient is alert and in good spirits this morning - Reports that he is awesome and shakes my hand during my visit - Does not describe any pain or other new symptoms Major 24 Hour Events: - No acute events overnight Objective: Vitals: Last Value Range Last 24 hrs Temperature Temp: 36.6 ??C (97.8 ??F) Temp: [36.6 ??C (97.8 ??F)] Heart Rate Heart Rate: (!) 107 (sittin gup at edge of bed) Heart Rate: -- Blood Pressure BP: 124/62 BP: (124)/(62) Respiratory Rate Resp: 18 Resp: [18] SpO2 SpO2: 96 % SpO2: [96 %] Weight: Last: 95.7 kg (211 lb) I/Os: 01/25 0701 - 01/26 0700 In: 2540 [P.O.:2540] Out: 2049 [Urine:2049] Admit: 86.64 kg Physical Exam: GEN Resting in bed under covers, alert, in NAD HEENT Conjunctiva are anicteric and without injection, oropharynx clear, moist mucus membranes MSK No peripheral edema appreciated. DERM Skin warm and dry. No rashes appreciated. NEURO General: Alert but not able to answer orientation questions Cranial Nerves: EOMI, no facial asymmetry, hearing intact to normal voice Strength: Moves all 4 extremities without issue Labs Notable For: None new today Micro: None. Radiology/Studies: None new today. Assessment and Plan Miguel Angel Mason is a 27 y.o. 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 His hospital course has been complicated by hypernatremia (resolved), and urinary retention (resolved). The patient is now medically ready for discharge and awaiting placement at a half-way facility. # Left acetabular fracture: S/p operative repair on 09/04/2017 and orthopedics advanced to WBAT BLE (11/21). - Acetaminophen 650mg q8hr - Ibuprofen 400mg q6hr PRN - Will investigate timing of orthopedic surgery follow up this coming week ?? # Baseline cognitive impairment: 2/2 prior CVA/hemorrhage from pituitary surgery). Intermittent waxing/waning periods of restlessness and yelling/moaning loudly alternating with periods of relative calm are normal, per caregiver. - Quetiapine 250mg nightly - Trazodone 50mg nightly - Melatonin 9mg nightly - Additional quetiapine 50mg BID PRN for agitation - Continue usual non-pharmacological interventions (awake during day, sitter, normalized routine, etc) ?? 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 # Fractured left lower molar: Likely occurred with seizure, no evidence of acute infection. Extraction to occur in non-urgent manner pending availability, but per dentistry, not likely anytime soon. ?? # Urinary retention: Improved:? - PRN bladder scan/straight cath ?? # HTN - Continue metoprolol # Other Chronic Medical Conditions: - Osteopenia: Calcium carbonate and vitamin D # Routine: - Prophylaxis: GI: Not indicated DVT: Regular ambulation; SCDs Glycemic control: Not indicated - Nutrition: Regular diet - Code Status: Full Code IPI Certification I certify that I am a D-H credentialed attending provider with admitting privileges and that the patient meets or has met medical necessity to require an inpatient IPI level of care meeting a minimumof two midnights or is on the [facility] inpatient only procedure list (status C) due to: Patient previously met IPI criteria and is now awaiting placement at a half-way facility. LOS >48hrs. Noah Menard MD 01/26/2018 Hospital Medicine Team Pager: #[phone] * Dani Montoya RN - 01/25/2018 5:18 PM EDT Assumed care of patient at 1500. VSS, lung sounds clear to auscultation, skin intact. Patient alert. C/o of knee pain this evening, PRN ibuprofen administered with positive effect. No acute events, will continue to monitor. * Noah Menard MD - 01/25/2018 7:09 AM EDT Hospital Medicine Attending Daily Progress Note Patient Name: Miguel Angel Mason Service: Hospital Medicine Admit Date: 09/02/2017 Hospital Day: 145 Patient Description: Miguel Angel Mason is a 27 y.o. 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 His hospital course has been complicated by hypernatremia (resolved), and urinary retention (resolved). The patient is now medically ready for discharge and awaiting placement at a half-way facility. Active Problems: Active Hospital Problems Diagnosis ??? S/P ORIF left acetabulum fracture 09/04/2017 Dr. Lance ??? Diabetes insipidus ??? Panhypopituitarism Resolved Hospital Problems Diagnosis Date Resolved ??? Hypernatremia 01/24/2018 ??? Acute urinary retention 01/24/2018 ??? Postoperative anemia due to acute blood loss 12/09/2017 Subjective: - Patient is calling out to his bedside sitter this morning but is in no acute distress - Patient expresses that he is pleased he was able to walk 175 steps yesterday - Does not describe any pain, fevers, chills, or other new symptoms Major 24 Hour Events: - No acute events overnight Objective: Vitals: Last Value Range Last 24 hrs Temperature Temp: 36.5 ??C (97.7 ??F) Temp: [36.4 ??C (97.5 ??F)-36.7 ??C (98.1 ??F)] Heart Rate Heart Rate: (!) 107 (sittin gup at edge of bed) Heart Rate: [93-107] Blood Pressure BP: 132/66 BP: (108-154)/(66-92) Respiratory Rate Resp: 14 Resp: [14-20] SpO2 SpO2: 98 % SpO2: [96 %-98 %] Weight: Last: 95.7 kg (211 lb) I/Os: 01/24 0701 - 01/25 0700 In: 1860 [P.O.:1860] Out: 2625 [Urine:2625] Admit: 86.64 kg Physical Exam: GEN Resting in bed under covers, alert, in NAD HEENT Conjunctiva are anicteric and without injection, oropharynx clear, moist mucus membranes MSK No peripheral edema appreciated. DERM Skin warm and dry. No rashes appreciated. NEURO General: Alert but not able to answer orientation questions Cranial Nerves: EOMI, no facial asymmetry, hearing intact to normal voice Strength: Moves all 4 extremities without issue Labs Notable For: None new today Micro: None. Radiology/Studies: None new today. Assessment and Plan Miguel Angel Mason is a 27 y.o. 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 His hospital course has been complicated by hypernatremia (resolved), and urinary retention (resolved). The patient is now medically ready for discharge and awaiting placement at a half-way facility. # Left acetabular fracture: S/p operative repair on 09/04/2017 and orthopedics advanced to WBAT BLE (11/21). - Acetaminophen 650mg q8hr - Ibuprofen 400mg q6hr PRN - Will investigate timing of orthopedic surgery follow up this coming week ?? # Baseline cognitive impairment: 2/2 prior CVA/hemorrhage from pituitary surgery). Intermittent waxing/waning periods of restlessness and yelling/moaning loudly alternating with periods of relative calm are normal, per caregiver. - Quetiapine 250mg nightly - Trazodone 50mg nightly - Melatonin 9mg nightly - Additional quetiapine 50mg BID PRN for agitation - Continue usual non-pharmacological interventions (awake during day, sitter, normalized routine, etc) ?? 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 # Fractured left lower molar: Likely occurred with seizure, no evidence of acute infection. Extraction to occur in non-urgent manner pending availability, but per dentistry, not likely anytime soon. ?? # Urinary retention: Improved:? - PRN bladder scan/straight cath ?? # HTN - Continue metoprolol # Other Chronic Medical Conditions: - Osteopenia: Calcium carbonate and vitamin D # Routine: - Prophylaxis: GI: Not indicated DVT: Regular ambulation; SCDs Glycemic control: Not indicated - Nutrition: Regular diet - Code Status: Full Code IPI Certification I certify that I am a D-H credentialed attending provider with admitting privileges and that the patient meets or has met medical necessity to require an inpatient IPI level of care meeting a minimumof two midnights or is on the [facility] inpatient only procedure list (status C) due to: Patient previously met IPI criteria and is now awaiting placement at a half-way facility. LOS >48hrs. Noah Menard MD 01/25/2018 Hospital Medicine Team Pager: #[phone] * Noah Menard MD - 01/24/2018 7:14 AM EDT Hospital Medicine Attending Daily Progress Note Patient Name: Miguel Angel Mason Service: Hospital Medicine Admit Date: 09/02/2017 Hospital Day: 144 Patient Description: Miguel Angel Mason is a 27 y.o. 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 His hospital course has been complicated by hypernatremia (resolved), and urinary retention (resolved). The patient is now medically ready for discharge and awaiting placement at a half-way facility. Active Problems: Active Hospital Problems Diagnosis ??? S/P ORIF left acetabulum fracture 09/04/2017 Dr. Lance ??? Diabetes insipidus ??? Panhypopituitarism Resolved Hospital Problems Diagnosis Date Resolved ??? Hypernatremia 01/24/2018 ??? Acute urinary retention 01/24/2018 ??? Postoperative anemia due to acute blood loss 12/09/2017 Subjective: - Patient is pleasantly listening to a book on tape with his sitter today - Does not describe any pain or other new symptoms this morning Major 24 Hour Events: - No acute events overnight Objective: Vitals: Last Value Range Last 24 hrs Temperature Temp: 36.4 ??C (97.5 ??F) Temp: [36.4 ??C (97.5 ??F)-36.6 ??C (97.9 ??F)] Heart Rate Heart Rate: 93 Heart Rate: [93-98] Blood Pressure BP: 108/72 BP: (108-120)/(69-72) Respiratory Rate Resp: 20 Resp: [20] SpO2 SpO2: 98 % SpO2: [95 %-98 %] Weight: Last: 95.7 kg (211 lb) I/Os: 01/23 0701 - 01/24 0700 In: 575 [P.O.:575] Out: 650 [Urine:650] Admit: 86.64 kg Physical Exam: GEN Resting in bed under covers, alert, in NAD HEENT Conjunctiva are anicteric and without injection, oropharynx clear, moist mucus membranes CV RRR, normal S1/S2, no murmurs/rubs/gallops appreciated PULM Normal respiratory effort, clear to auscultation bilaterally, no wheezes or crackles appreciated in anterior lung medellin GI Abdomen soft, non-tender, non-distended, + bowel sounds, no guarding, no rebound MSK No peripheral edema appreciated. DERM Skin warm and dry. No rashes appreciated. NEURO General: Alert but not able to answer orientation questions Cranial Nerves: EOMI, no facial asymmetry, hearing intact to normal voice Strength: Moves all 4 extremities without issue Labs Notable For: Na 144, K 3.9, BUN 22 Micro: None. Radiology/Studies: None new today. Assessment and Plan Miguel Angel Mason is a 27 y.o. 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 His hospital course has been complicated by hypernatremia (resolved), and urinary retention (resolved). The patient is now medically ready for discharge and awaiting placement at a half-way facility. # Left acetabular fracture: S/p operative repair on 09/04/2017 and orthopedics advanced to WBAT BLE (11/21). - Acetaminophen 650mg q8hr - Ibuprofen 400mg q6hr PRN - Will investigate timing of orthopedic surgery follow up this coming week ?? # Baseline cognitive impairment: 2/2 prior CVA/hemorrhage from pituitary surgery). Intermittent waxing/waning periods of restlessness and yelling/moaning loudly alternating with periods of relative calm are normal per caregiver. - Quetiapine 250mg nightly - Trazodone 50mg nightly - Melatonin 9mg nightly - Additional quetiapine 50mg BID PRN for agitation - Continue usual non-pharmacological interventions (awake during day, sitter, normalized routine, etc) ?? 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 # Fractured left lower molar: Likely occurred with seizure, no evidence of acute infection. Extraction to occur in non-urgent manner pending availability, but per dentistry, not likely anytime soon. ?? # Urinary retention: Improved:? - PRN bladder scan/straight cath ?? # HTN - Continue metoprolol # Other Chronic Medical Conditions: - Osteopenia: Calcium carbonate and vitamin D # Routine: - Prophylaxis: GI: Not indicated DVT: Regular ambulation; SCDs Glycemic control: Not indicated - Nutrition: Regular diet - Code Status: Full Code IPI Certification I certify that I am a D-H credentialed attending provider with admitting privileges and that the patient meets or has met medical necessity to require an inpatient IPI level of care meeting a minimumof two midnights or is on the [facility] inpatient only procedure list (status C) due to: Patient previously met IPI criteria and is now awaiting placement at a half-way facility. LOS >48hrs. Noah Menard MD 01/24/2018 Hospital Medicine Team Pager: [phone] * Abimbola Goldstein MD - 01/23/2018 8:18 AM EDT Hospital Medicine Attending Daily Progress Note Admit Date: 09/02/2017 Hospital Day 143 days Active Hospital Problems Diagnosis ??? S/P ORIF left acetabulum fracture 09/04/2017 Dr. Lance ??? Acute urinary retention ??? Diabetes insipidus ??? Adrenal insufficiency ??? Panhypopituitarism ??? Seizure disorder ??? Hypothyroidism Resolved Hospital Problems Diagnosis Date Resolved ??? Postoperative anemia due to acute blood loss 12/09/2017 [facility] Active Non-Hospital Problems Diagnosis ??? Insomnia ??? Blind ??? CVA (cerebral vascular accident) ??? Urinary incontinence Inpatient Medications: Scheduled ??? levothyroxine 225 mcg Oral QAM ??? desmopressin 0.05 mg Oral 2 times per day ??? desmopressin 0.1 mg Oral Nightly ??? metoprolol succinate 50 mg Oral Daily ??? traZODone 50 mg Oral Nightly ??? acetaminophen 650 mg Oral TID ??? melatonin 9 mg Oral Nightly ??? QUEtiapine 250 mg Oral Nightly ??? calcium carbonate 500 mg Oral Nightly ??? hydrocortisone 10 mg Oral Daily at Noon ??? senna-docusate 2 tablet Oral BID ??? testosterone 5 g Transdermal Nightly ??? methyl salicylate-menthol Topical (Top) BID ??? cholecalciferol (Vitamin D3) 1,000 Units Oral Daily ??? hydrocortisone 20 mg Oral QAM ??? pantoprazole 40 mg Oral QAM AC ??? zonisamide 200 mg Oral Nightly Continuous infusions: PRN: ibuprofen, QUEtiapine, polyethylene glycol (MIRALAX)oral powder, simethicone, bisacodyl, naphazoline-pheniramine Interval History: no acute events overnight. He offers no complaints. Physical Exam Vitals Range last 24 hrs Temperature Temp: [36.4 ??C (97.5 ??F)-36.6 ??C (97.9 ??F)] Heart Rate Heart Rate: [105-118] Blood Pressure BP: (113-128)/(68-88) Respiratory Rate Resp: [18-20] SpO2 SpO2: [97 %-98 %] Intake/Output Summary (Last 24 hours) at 01/23/18 08 Last data filed at 01/22/18 1807 Gross per 24 hour Intake 1860 ml Output 1100 ml Net 760 ml Patient Vitals for the past 168 hrs: Weight 01/22/18 2324 95.7 kg (211 lb) 01/19/18 1300 95.8 kg (211 lb 4.8 oz) Body mass index is 30.28 kg/(m^2). Physical Exam General - lying in bed, NAD; obese CV - RRR, nl s1s2; no murmur Lungs - clear to ausculation; no crackles or wheezes Abd - Soft, ND, +BS, non-tender to palpation Ext - Warm, no edema Neuro - Pupils relative fixed (stable), grossly motor intact Skin: no rash; warm, dry Studies reviewed in eDH. Remarkable for the following: LABS: Last 3 wbc, hgb, hct plt Recent Labs 01/16/18 0502 12/25/17 0550 12/23/17 0641 WBC 5.0 4.9 4.8 HGB 11.2* 11.9* 10.6* HCT 35.5* 36.4* 34.7* PLATELET 298 313 286 Last 3 Lytes Recent Labs 01/23/18 0611 01/21/18 0434 01/19/18 0721 01/16/18 0502 12/28/17 0004 12/25/17 0550 NA 144 139 142 < > 146* < > 146* < > 149* K 3.9 4.0 3.6 < > 3.7 < > 3.6 -- 3.6 CL 106 103 103 < > 108* < > 104 -- 108* CO2 22 20* 23 < > 23 < > 25 -- 25 BUN -- -- -- -- 17 -- 22* -- 14 CREATININE -- -- -- -- 0.83 -- 0.90 -- 0.63* < > = values in this interval not displayed. Last 3 LFTs Recent Labs 09/04/17 0358 AST 23 ALT 31 ALKPHOS 75 BILITOT 0.5 BILIDIR 0.1 FSBG Trend No results for input(s): POCGLU in the last 72 hours. MICRO: No results for input(s): URINECULTURE in the last 720 hours. No results for input(s): GRAMSTAIN, BFCX, LOWERRESPCX, TISSUECX in the last 720 hours. No results for input(s): BLOODCX in the last 720 hours. ECG: No results for input(s): DIAGLINE, QTCCALC in the last 720 hours. VASCULAR: No results for input(s): VBTEXTRPT in the last 720 hours. IMAGING: CT facial 10/20 IMPRESSION Multiple dental caries. Dental restorations limits resolution somewhat but no definite molar fracture can be seen. Consider Panorex of the mandible. CT pelvis MSK 09/03 IMPRESSION 1. Comminuted left acetabular fracture involving the medial wall with posttraumatic protrusio deformity. 2. The flat contour of the left femoral head is consistent with fracture. I do not however see displaced fracture typical the shear injury is seen in the setting. It is possible this base of the represent a compression of the femoral surface. 3. Pelvic hematoma. XR Pelvis 11/18 Impression 1. Unchanged ORIF of left acetabular fracture. 2. The fracture lines are better characterized on CT exam. XR knee, L 11/17 Impression No fracture or dislocation No large knee effusion. 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 Agitated behavior issues presumed environmental given change from his normal nursing home to the variably hospital situation. Had been on opiates which were stopped earlier this stay - on tylenol and motrin prn. Earlier had consolidated sedating meds at bedtime to achieve better sleep schedule. Otherwise try to maintain activity during day and stimulated/interacting during the day with maintenance of his normal routine, as much as possible. He is WBAT, not able to return to current nursing home and appreciate CM/SW assistance who are reaching out to [facility] for other options - may be home opening in March per report. Denied at SNFs with behavior. [facility] seems only option but no viable current option for dispo. Plan: # Left acetabular fracture: Improved -s/p operative repair on 09/04/2017 and orthopedics advanced to WBAT BLE (11/21) -continue scheduled tylenol -continue prn ibuprofen # Toxic metabolic encephalopathy on baseline cognitive impairment with past CVA/hemorrhage from pituitary surgery: -encephalopathy has resolved - his ongoing waxing/waning periods of restlessness and yelling/moaning loudly alternating with periods of relative calm are normal per caregiver -continue quetiapine, trazodone, and melatonin at 8pm (his usual bed time per caregiver) -has additional quetiapine available prn for agitation -try to get him active and stimulated during the day -check bladder scan PRN / CIC PRN -cont bowel regimen -has not required physical restraints for several weeks # 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 -decreased hydrocortisone from 20/10/10 to 20/10 per endocrine on 11/16 -increased synthroid to 200 mcg 11/23 - free T4 0.98 11/28 - free T4 low again at 0.74 - discussed with endocrine 01/12 - recommended increased to 225mg (start 01/13) and repeat in 2 weeks (ordered for 01/26) -seizures managed with home zonisamide 200mg PO QHS per neurology. -treat DI as below # Diabetes insipidus, Hyponatremia and hypernatremia: -sodium stable though slighly higher to 148 today -outpt ddAVP dosing and fluid restriction are 0.05 mg tid and 3.2 L, respectively -Na elevated intermittently when not drinking enough - need to avail him of / allow him to take up to 3.2 liters of po fluid per day -ensure between 2-3 L of fluid intake daily -continue ddavp at 0.05 mg/0.05 mg/0.1 mg (0.05mg above home dose) -appreciate Endocrine involvement -labs QOD - decrease further if stable # Fractured left lower molar: -Likely occurred with seizure, no evidence of acute infection. Extraction to occur in non-urgent manner pending availability, but per dentistry, not likely anytime soon. # Urinary retention - improved: - monitor - PRN bladder scan/straight cath # HTN - continue metoprolol IV access: none Tubes/Drains: none DVT PPX: SCDs Anticipated Disposition: Currently nursing home is not feasible - needs to be able to (at a minimum) walk to the bathroom and go up/down 13 stairs (which mimics the current living situation at his nursing home). Per our SW, [facility] is discussing options but no current viable option. SNFs declined. Team Pager(MD Coverage 27/01): # [phone] PCP: NAKIA Cifuentes [phone] Attestation: IPI Certification I certify that I am a D-H credentialed attending provider with admitting privileges and that the patient meets or has met medical necessity to require an inpatient IPI level of care meeting a minimumof two midnights or is on the [facility] inpatient only procedure list (status C) due to: the patient has met Inpatient IPI criteria and is awaiting rehabilitation or half-way facility placement withactive referrals in process PCP: NAKIA Cifuentes [phone] ABIMBOLA GOLDSTEIN MD 01/23/2018 * Tricia Gerber RN - 01/22/2018 5:12 PM EDT Received call that YULISA Quevedo RN will be completing on-site visit on 01/23. Tricia Gerber RN [facility] [email or web address] Pager: [phone] * Debbie Keller DT - 01/22/2018 12:35 PM EDT Nutrition Services - Follow-up Note Miguel Angel Kim Isabella : 1990 AGE: 27 y.o. Patient Active Problem List Diagnosis Date Noted ??? *Hospital-S/P ORIF left acetabulum fracture 09/04/2017 Dr. Lance 09/02/2017 ??? Hospital-Acute urinary retention 12/09/2017 ??? Hospital-Diabetes insipidus 09/03/2017 Chronic ??? Hospital-Adrenal insufficiency 09/03/2017 ??? 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 Hospital-Seizure disorder 09/03/2017 ??? Insomnia 09/03/2017 ??? Blind 09/03/2017 ??? CVA (cerebral vascular accident) 09/03/2017 ??? Urinary incontinence 09/03/2017 ??? Hospital-Hypothyroidism 09/03/2017 Reason for Nutrition Intervention: Follow-up Diet Order: Regular Appetite: Fine- per nursing Food allergies: NKFA Chewing/Swallowing difficulty: None noted- per nursing Ht Readings from Last 3 Encounters: 09/07/17 177.8 cm (5' 10) Wt Readings from Last 3 Encounters: 01/19/18 95.8 kg (211 lb 4.8 oz) Body mass index is 30.32 kg/(m^2). Vitamins/Minerals: Vitamin D3, Tums noted. Assessment: Patient seen for nutrition follow up. Nursing reported a good appetite stating, pt is eating fine and receiving a lot of food w/ meals. Nursing noted no difficulty chewing or swallowing. He is tolerating current diet without nausea or vomiting. Nursing notes documenting 100% PO intakeat breakfast today 01/22, three 100% PO intakes on 01/21 and three 100% PO intakes on 01/20. Pt receiving menu choices daily. Pt receiving mid-morning snack. Will continue to send. Please call diet office [phone] to modify snack any time. Nursing had no further nutrition concerns at this time. Please contact Food and Nutrition services with any questions that may arise. Nutrition will continue to follow. Nutrition Plan: Continue current diet. Recommend Daily Multi Vitamins. No standard meal trays. Dietary to continue to send menu daily. Dietary to continue to cut up all foods daily. . Mid-morning snack-fruit cup, bottled water, 12 carrot sticks, 12 celery sticks. Encourage good po intake. Monitor weight. Support and encouragement provided. Nutrition services to follow thru hospital course unless consulted in the interim. ADAM Kaur * Abimbola Goldstein MD - 01/22/2018 12:05 PM EDT Hospital Medicine Attending Daily Progress Note Admit Date: 09/02/2017 Hospital Day 142 days Active Hospital Problems Diagnosis ??? S/P ORIF left acetabulum fracture 09/04/2017 Dr. Lance ??? Acute urinary retention ??? Diabetes insipidus ??? Adrenal insufficiency ??? Panhypopituitarism ??? Seizure disorder ??? Hypothyroidism Resolved Hospital Problems Diagnosis Date Resolved ??? Postoperative anemia due to acute blood loss 12/09/2017 PM Active Non-Hospital Problems Diagnosis ??? Insomnia ??? Blind ??? CVA (cerebral vascular accident) ??? Urinary incontinence Inpatient Medications: Scheduled ??? levothyroxine 225 mcg Oral QAM ??? desmopressin 0.05 mg Oral 2 times per day ??? desmopressin 0.1 mg Oral Nightly ??? metoprolol succinate 50 mg Oral Daily ??? traZODone 50 mg Oral Nightly ??? acetaminophen 650 mg Oral TID ??? melatonin 9 mg Oral Nightly ??? QUEtiapine 250 mg Oral Nightly ??? calcium carbonate 500 mg Oral Nightly ??? hydrocortisone 10 mg Oral Daily at Noon ??? senna-docusate 2 tablet Oral BID ??? testosterone 5 g Transdermal Nightly ??? methyl salicylate-menthol Topical (Top) BID ??? cholecalciferol (Vitamin D3) 1,000 Units Oral Daily ??? hydrocortisone 20 mg Oral QAM ??? pantoprazole 40 mg Oral QAM AC ??? zonisamide 200 mg Oral Nightly Continuous infusions: PRN: ibuprofen, QUEtiapine, polyethylene glycol (MIRALAX)oral powder, simethicone, bisacodyl, naphazoline-pheniramine Interval History: no acute events overnight. He offers no complaints. Physical Exam Vitals Range last 24 hrs Temperature Temp: [36.5 ??C (97.7 ??F)-36.9 ??C (98.4 ??F)] Heart Rate Heart Rate: [89-95] Blood Pressure BP: (107-125)/(62-75) Respiratory Rate Resp: [19] SpO2 SpO2: [98 %] Intake/Output Summary (Last 24 hours) at 01/22/18 1206 Last data filed at 01/22/18 1127 Gross per 24 hour Intake 2150 ml Output 3025 ml Net -875 ml Patient Vitals for the past 168 hrs: Weight 01/19/18 1300 95.8 kg (211 lb 4.8 oz) Body mass index is 30.32 kg/(m^2). Physical Exam General - lying in bed, NAD; obese CV - RRR, nl s1s2; no murmur Lungs - clear to ausculation; no crackles or wheezes Abd - Soft, ND, +BS, non-tender to palpation Ext - Warm, no edema Neuro - Pupils relative fixed (stable), grossly motor intact Skin: no rash; warm, dry Studies reviewed in eDH. Remarkable for the following: LABS: Last 3 wbc, hgb, hct plt Recent Labs 01/16/18 0502 12/25/17 0550 12/23/17 0641 WBC 5.0 4.9 4.8 HGB 11.2* 11.9* 10.6* HCT 35.5* 36.4* 34.7* PLATELET 298 313 286 Last 3 Lytes Recent Labs 01/21/18 0434 01/19/18 0721 01/17/18 0517 01/16/18 0502 12/28/17 0004 12/25/17 0550 NA 139 142 140 146* < > 146* < > 149* K 4.0 3.6 3.4* 3.7 < > 3.6 -- 3.6 CL 103 103 102 108* < > 104 -- 108* CO2 20* 23 24 23 < > 25 -- 25 BUN -- -- -- 17 -- 22* -- 14 CREATININE -- -- -- 0.83 -- 0.90 -- 0.63* < > = values in this interval not displayed. Last 3 LFTs Recent Labs 09/04/17 0358 AST 23 ALT 31 ALKPHOS 75 BILITOT 0.5 BILIDIR 0.1 FSBG Trend No results for input(s): POCGLU in the last 72 hours. MICRO: No results for input(s): URINECULTURE in the last 720 hours. No results for input(s): GRAMSTAIN, BFCX, LOWERRESPCX, TISSUECX in the last 720 hours. No results for input(s): BLOODCX in the last 720 hours. ECG: No results for input(s): DIAGLINE, QTCCALC in the last 720 hours. VASCULAR: No results for input(s): VBTEXTRPT in the last 720 hours[address] IMAGING: CT facial 10/20 IMPRESSION Multiple dental caries. Dental restorations limits resolution somewhat but no definite molar fracture can be seen. Consider Panorex of the mandible. CT pelvis MSK 09/03 IMPRESSION 1. Comminuted left acetabular fracture involving the medial wall with posttraumatic protrusio deformity. 2. The flat contour of the left femoral head is consistent with fracture. I do not however see displaced fracture typical the shear injury is seen in the setting. It is possible this base of the represent a compression of the femoral surface. 3. Pelvic hematoma. XR Pelvis 11/18 Impression 1. Unchanged ORIF of left acetabular fracture. 2. The fracture lines are better characterized on CT exam. XR knee, L 11/17 Impression No fracture or dislocation No large knee effusion. 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 Agitated behavior issues presumed environmental given change from his normal nursing home to the variably hospital situation. Had been on opiates which were stopped earlier this stay - on tylenol and motrin prn. Earlier had consolidated sedating meds at bedtime to achieve better sleep schedule. Otherwise try to maintain activity during day and stimulated/interacting during the day with maintenance of his normal routine, as much as possible. He is WBAT, not able to return to current nursing home and appreciate CM/SW assistance who are reaching out to [facility] for other options - may be home opening in March per report. Denied at SNFs with behavior. [facility] seems only option but no viable current option for dispo. Plan: # Left acetabular fracture: Improved -s/p operative repair on 09/04/2017 and orthopedics advanced to WBAT BLE (11/21) -continue scheduled tylenol -continue prn ibuprofen # Toxic metabolic encephalopathy on baseline cognitive impairment with past CVA/hemorrhage from pituitary surgery: -encephalopathy has resolved - his ongoing waxing/waning periods of restlessness and yelling/moaning loudly alternating with periods of relative calm are normal per caregiver -continue quetiapine, trazodone, and melatonin at 8pm (his usual bed time per caregiver) -has additional quetiapine available prn for agitation -try to get him active and stimulated during the day -check bladder scan PRN / CIC PRN -cont bowel regimen -has not required physical restraints for several weeks # 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 -decreased hydrocortisone from 20/10/10 to 20/10 per endocrine on 11/16 -increased synthroid to 200 mcg 11/23 - free T4 0.98 11/28 - free T4 low again at 0.74 - discussed with endocrine 01/12 - recommended increased to 225mg (start 01/13) and repeat in 2 weeks (ordered for 01/26) -seizures managed with home zonisamide 200mg PO QHS per neurology. -treat DI as below # Diabetes insipidus, Hyponatremia and hypernatremia: -sodium stable though slighly higher to 148 today -outpt ddAVP dosing and fluid restriction are 0.05 mg tid and 3.2 L, respectively -Na elevated intermittently when not drinking enough - need to avail him of / allow him to take up to 3.2 liters of po fluid per day -ensure between 2-3 L of fluid intake daily -continue ddavp at 0.05 mg/0.05 mg/0.1 mg (0.05mg above home dose) -appreciate Endocrine involvement -labs QOD - decrease further if stable # Fractured left lower molar: -Likely occurred with seizure, no evidence of acute infection. Extraction to occur in non-urgent manner pending availability, but per dentistry, not likely anytime soon. # Urinary retention - improved: - monitor - PRN bladder scan/straight cath # HTN - continue metoprolol IV access: none Tubes/Drains: none DVT PPX: SCDs Anticipated Disposition: Currently nursing home is not feasible - needs to be able to (at a minimum) walk to the bathroom and go up/down 13 stairs (which mimics the current living situation at his nursing home). Per our SW, [facility] is discussing options but no current viable option. SNFs declined. Team Pager(MD Coverage 27/01): # [phone] PCP: NAKIA Cifuentes [phone] Attestation: IPI Certification I certify that I am a D-H credentialed attending provider with admitting privileges and that the patient meets or has met medical necessity to require an inpatient IPI level of care meeting a minimumof two midnights or is on the [facility] inpatient only procedure list (status C) due to: the patient has met Inpatient IPI criteria and is awaiting rehabilitation or half-way facility placement withactive referrals in process PCP: NAKIA Cifuentes [phone] ABIMBOLA GOLDSTEIN MD 01/22/2018 * Danay Monge MD - 01/21/2018 3:18 PM EDT [facility] Medicine Attending Daily Progress Note Admit Date: 09/02/2017 Hospital Day 141 days Active Hospital Problems Diagnosis ??? S/P ORIF left acetabulum fracture 09/04/2017 Dr. Lance ??? Acute urinary retention ??? Diabetes insipidus ??? Adrenal insufficiency ??? Panhypopituitarism ??? Seizure disorder ??? Hypothyroidism Resolved Hospital Problems Diagnosis Date Resolved ??? Postoperative anemia due to acute blood loss 12/09/2017 PM Active Non-Hospital Problems Diagnosis ??? Insomnia ??? Blind ??? CVA (cerebral vascular accident) ??? Urinary incontinence Inpatient Medications: Scheduled ??? levothyroxine 225 mcg Oral QAM ??? desmopressin 0.05 mg Oral 2 times per day ??? desmopressin 0.1 mg Oral Nightly ??? metoprolol succinate 50 mg Oral Daily ??? traZODone 50 mg Oral Nightly ??? acetaminophen 650 mg Oral TID ??? melatonin 9 mg Oral Nightly ??? QUEtiapine 250 mg Oral Nightly ??? calcium carbonate 500 mg Oral Nightly ??? hydrocortisone 10 mg Oral Daily at Noon ??? senna-docusate 2 tablet Oral BID ??? testosterone 5 g Transdermal Nightly ??? methyl salicylate-menthol Topical (Top) BID ??? cholecalciferol (Vitamin D3) 1,000 Units Oral Daily ??? hydrocortisone 20 mg Oral QAM ??? pantoprazole 40 mg Oral QAM AC ??? zonisamide 200 mg Oral Nightly Continuous infusions: PRN: ibuprofen, QUEtiapine, polyethylene glycol (MIRALAX)oral powder, simethicone, bisacodyl, naphazoline-pheniramine Interval History: no events overnight Physical Exam Vitals Range last 24 hrs Temperature Temp: [36.4 ??C (97.5 ??F)-36.6 ??C (97.9 ??F)] Heart Rate Heart Rate: [92-108] Blood Pressure BP: (118-132)/(67-75) Respiratory Rate Resp: [14-22] SpO2 SpO2: [95 %-100 %] Intake/Output Summary (Last 24 hours) at 01/21/18 1518 Last data filed at 01/21/18 1400 Gross per 24 hour Intake 2350 ml Output 2525 ml Net -175 ml Patient Vitals for the past 168 hrs: Weight 01/19/18 1300 95.8 kg (211 lb 4.8 oz) Body mass index is 30.32 kg/(m^2). Physical Exam General - lying in bed, nad CV - RRR, no m/r/g Lungs - CTA anteriorly Abd - Soft, ND, +BS, non-tender to palpation Ext - Warm, no edema Neuro - Pupils relative fixed (stable), grossly motor intact - no acute changes Studies reviewed in eDH. Remarkable for the following: LABS: Last 3 wbc, hgb, hct plt Recent Labs 01/16/18 0502 12/25/17 0550 12/23/17 0641 WBC 5.0 4.9 4.8 HGB 11.2* 11.9* 10.6* HCT 35.5* 36.4* 34.7* PLATELET 298 313 286 Last 3 Lytes Recent Labs 01/21/18 0434 01/19/18 0721 01/17/18 0517 01/16/18 0502 12/28/17 0004 12/25/17 0550 NA 139 142 140 146* < > 146* < > 149* K 4.0 3.6 3.4* 3.7 < > 3.6 -- 3.6 CL 103 103 102 108* < > 104 -- 108* CO2 20* 23 24 23 < > 25 -- 25 BUN -- -- -- 17 -- 22* -- 14 CREATININE -- -- -- 0.83 -- 0.90 -- 0.63* < > = values in this interval not displayed. Last 3 LFTs Recent Labs 09/04/17 0358 AST 23 ALT 31 ALKPHOS 75 BILITOT 0.5 BILIDIR 0.1 FSBG Trend No results for input(s): POCGLU in the last 72 hours. MICRO: No results for input(s): URINECULTURE in the last 720 hours. No results for input(s): GRAMSTAIN, BFCX, LOWERRESPCX, TISSUECX in the last 720 hours. No results for input(s): BLOODCX in the last 720 hours. ECG: No results for input(s): DIAGLINE, QTCCALC in the last 720 hours. VASCULAR: No results for input(s): VBTEXTRPT in the last 720 hours. IMAGING: CT facial 10/20 IMPRESSION Multiple dental caries. Dental restorations limits resolution somewhat but no definite molar fracture can be seen. Consider Panorex of the mandible. CT pelvis MSK 09/03 IMPRESSION 1. Comminuted left acetabular fracture involving the medial wall with posttraumatic protrusio deformity. 2. The flat contour of the left femoral head is consistent with fracture. I do not however see displaced fracture typical the shear injury is seen in the setting. It is possible this base of the represent a compression of the femoral surface. 3. Pelvic hematoma. XR Pelvis 11/18 Impression 1. Unchanged ORIF of left acetabular fracture. 2. The fracture lines are better characterized on CT exam. XR knee, L 11/17 Impression No fracture or dislocation No large knee effusion. 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 Agitated behavior issues presumed environmental given change from his normal nursing home to the variably hospital situation. Had been on opiates which were stopped earlier this stay - on tylenol and motrin prn. Earlier had consolidated sedating meds at bedtime to achieve better sleep schedule. Otherwise try to maintain activity during day and stimulated/interacting during the day with maintenance of his normal routine, as much as possible. He is WBAT, not able to return to current nursing home and appreciate CM/SW assistance who are reaching out to [facility] for other options - may be home opening in March per report. Denied at SNFs with behavior. [facility] seems only option but no viable current option for dispo. Plan: # Left acetabular fracture: Improved -s/p operative repair on 09/04/2017 and orthopedics advanced to WBAT BLE (11/21) -continue scheduled tylenol -continue prn ibuprofen # Toxic metabolic encephalopathy on baseline cognitive impairment with past CVA/hemorrhage from pituitary surgery: -encephalopathy has resolved - his ongoing waxing/waning periods of restlessness and yelling/moaning loudly alternating with periods of relative calm are normal per caregiver -continue quetiapine, trazodone, and melatonin at 8pm (his usual bed time per caregiver) -has additional quetiapine available prn for agitation -try to get him active and stimulated during the day -check bladder scan PRN / CIC PRN -cont bowel regimen -has not required physical restraints for several weeks # 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 -decreased hydrocortisone from 20/10/10 to 20/10 per endocrine on 11/16 -increased synthroid to 200 mcg 11/23 - free T4 0.98 11/28 - free T4 low again at 0.74 - discussed with endocrine 01/12 - recommended increased to 225mg (start 01/13) and repeat in 2 weeks (ordered for 01/26) -seizures managed with home zonisamide 200mg PO QHS per neurology. -treat DI as below # DI, Hyponatremia and hypernatremia: -sodium stable though slighly higher to 148 today -outpt ddAVP dosing and fluid restriction are 0.05 mg tid and 3.2 L, respectively -Na elevated intermittently when not drinking enough - need to avail him of / allow him to take up to 3.2 liters of po fluid per day -ensure between 2-3 L of fluid intake daily -continue ddavp at 0.05 mg/0.05 mg/0.1 mg (0.05mg above home dose) -appreciate Endocrine involvement -labs QOD - decrease further if stable # Fractured left lower molar: -Likely occurred with seizure, no evidence of acute infection. Extraction to occur in non-urgent manner pending availability, but per dentistry, not likely anytime soon. # Urinary retention - improved: - monitor - PRN bladder scan/straight cath # HTN - continue metoprolol IV access: none Tubes/Drains: none DVT PPX: SCD Anticipated Disposition: Currently nursing home is not feasible - needs to be able to (at a minimum) walk to the bathroom and go up/down 13 stairs (which mimics the current living situation at his nursing home). Per our SW, [facility] is discussing options but no current viable option. SNFs declined. Team Pager( Coverage 27/01): # [phone] PCP: NAKIA Cifuentes [phone] Attestation: IPI Certification I certify that I am a D-H credentialed attending provider with admitting privileges and that the patient meets or has met medical necessity to require an inpatient IPI level of care meeting a minimumof two midnights or is on the CMS inpatient only procedure list (status C) due to: the patient has met Inpatient IPI criteria and is awaiting rehabilitation or half-way facility placement withactive referrals in process PCP: NAKIA Cifuentes [phone] DANAY MONGE MD 01/21/2018 * Danay Monge MD - 01/20/2018 11:38 AM EDT Hospital Medicine Attending Daily Progress Note Admit Date: 09/02/2017 Hospital Day 140 days Active Hospital Problems Diagnosis ??? S/P ORIF left acetabulum fracture 09/04/2017 Dr. Lance ??? Acute urinary retention ??? Diabetes insipidus ??? Adrenal insufficiency ??? Panhypopituitarism ??? Seizure disorder ??? Hypothyroidism Resolved Hospital Problems Diagnosis Date Resolved ??? Postoperative anemia due to acute blood loss 12/09/2017 [facility] Active Non-Hospital Problems Diagnosis ??? Insomnia ??? Blind ??? CVA (cerebral vascular accident) ??? Urinary incontinence Inpatient Medications: Scheduled ??? levothyroxine 225 mcg Oral QAM ??? desmopressin 0.05 mg Oral 2 times per day ??? desmopressin 0.1 mg Oral Nightly ??? metoprolol succinate 50 mg Oral Daily ??? traZODone 50 mg Oral Nightly ??? acetaminophen 650 mg Oral TID ??? melatonin 9 mg Oral Nightly ??? QUEtiapine 250 mg Oral Nightly ??? calcium carbonate 500 mg Oral Nightly ??? hydrocortisone 10 mg Oral Daily at Noon ??? senna-docusate 2 tablet Oral BID ??? testosterone 5 g Transdermal Nightly ??? methyl salicylate-menthol Topical (Top) BID ??? cholecalciferol (Vitamin D3) 1,000 Units Oral Daily ??? hydrocortisone 20 mg Oral QAM ??? pantoprazole 40 mg Oral QAM AC ??? zonisamide 200 mg Oral Nightly Continuous infusions: PRN: ibuprofen, QUEtiapine, polyethylene glycol (MIRALAX)oral powder, simethicone, bisacodyl, naphazoline-pheniramine Interval History: no events overnight Physical Exam Vitals Range last 24 hrs Temperature Temp: [36.5 ??C (97.7 ??F)-36.8 ??C (98.2 ??F)] Heart Rate Heart Rate: [88-99] Blood Pressure BP: (118-132)/(69-83) Respiratory Rate Resp: [20-23] SpO2 SpO2: [95 %-97 %] Intake/Output Summary (Last 24 hours) at 01/20/18 1138 Last data filed at 01/20/18 0946 Gross per 24 hour Intake 2312 ml Output 2475 ml Net -163 ml Patient Vitals for the past 168 hrs: Weight 01/19/18 1300 95.8 kg (211 lb 4.8 oz) Body mass index is 30.32 kg/(m^2). Physical Exam General - lying in bed, nad CV - RRR, no m/r/g Lungs - CTA anteriorly Abd - Soft, ND, +BS, non-tender to palpation Ext - Warm, no edema Neuro - Pupils relative fixed (stable), grossly motor intact - no acute changes Studies reviewed in eDH. Remarkable for the following: LABS: Last 3 wbc, hgb, hct plt Recent Labs 01/16/18 0502 12/25/17 0550 12/23/17 0641 WBC 5.0 4.9 4.8 HGB 11.2* 11.9* 10.6* HCT 35.5* 36.4* 34.7* PLATELET 298 313 286 Last 3 Lytes Recent Labs 01/19/18 0721 01/17/18 0517 01/16/18 0502 12/28/17 0004 12/25/17 0550 NA 142 140 146* < > 146* < > 149* K 3.6 3.4* 3.7 < > 3.6 -- 3.6 CL 103 102 108* < > 104 -- 108* CO2 23 24 23 < > 25 -- 25 BUN -- -- 17 -- 22* -- 14 CREATININE -- -- 0.83 -- 0.90 -- 0.63* < > = values in this interval not displayed. Last 3 LFTs Recent Labs 09/04/17 0358 AST 23 ALT 31 ALKPHOS 75 BILITOT 0.5 BILIDIR 0.1 FSBG Trend No results for input(s): POCGLU in the last 72 hours. MICRO: No results for input(s): URINECULTURE in the last 720 hours. No results for input(s): GRAMSTAIN, BFCX, LOWERRESPCX, TISSUECX in the last 720 hours. No results for input(s): BLOODCX in the last 720 hours. ECG: No results for input(s): DIAGLINE, QTCCALC in the last 720 hours. VASCULAR: No results for input(s): VBTEXTRPT in the last 720 hours[address] IMAGING: CT facial 10/20 IMPRESSION Multiple dental caries. Dental restorations limits resolution somewhat but no definite molar fracture can be seen. Consider Panorex of the mandible. CT pelvis MSK 09/03 IMPRESSION 1. Comminuted left acetabular fracture involving the medial wall with posttraumatic protrusio deformity. 2. The flat contour of the left femoral head is consistent with fracture. I do not however see displaced fracture typical the shear injury is seen in the setting. It is possible this base of the represent a compression of the femoral surface. 3. Pelvic hematoma. XR Pelvis 11/18 Impression 1. Unchanged ORIF of left acetabular fracture. 2. The fracture lines are better characterized on CT exam. XR knee, L 11/17 Impression No fracture or dislocation No large knee effusion. 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 Agitated behavior issues presumed environmental given change from his normal nursing home to the variably hospital situation. Had been on opiates which were stopped earlier this stay - on tylenol and motrin prn. Earlier had consolidated sedating meds at bedtime to achieve better sleep schedule. Otherwise try to maintain activity during day and stimulated/interacting during the day with maintenance of his normal routine, as much as possible. He is WBAT, not able to return to current nursing home and appreciate CM/SW assistance who are reaching out to [facility] for other options - may be home opening in March per report. Denied at SNFs with behavior. [facility] seems only option but no viable current option for dispo. Plan: # Left acetabular fracture: Improved -s/p operative repair on 09/04/2017 and orthopedics advanced to WBAT BLE (11/21) -continue scheduled tylenol -continue prn ibuprofen # Toxic metabolic encephalopathy on baseline cognitive impairment with past CVA/hemorrhage from pituitary surgery: -encephalopathy has resolved - his ongoing waxing/waning periods of restlessness and yelling/moaning loudly alternating with periods of relative calm are normal per caregiver -continue quetiapine, trazodone, and melatonin at 8pm (his usual bed time per caregiver) -has additional quetiapine available prn for agitation -try to get him active and stimulated during the day -check bladder scan PRN / CIC PRN -cont bowel regimen -has not required physical restraints for several weeks # 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 -decreased hydrocortisone from 20 to 20/10 per endocrine on 11/16 -increased synthroid to 200 mcg 11/23 - free T4 0.98 11/28 - free T4 low again at 0.74 - discussed with endocrine 01/12 - recommended increased to 225mg (start 01/13) and repeat in 2 weeks (ordered for 01/26) -seizures managed with home zonisamide 200mg PO QHS per neurology. -treat DI as below # DI, Hyponatremia and hypernatremia: -sodium stable though slighly higher to 148 today -outpt ddAVP dosing and fluid restriction are 0.05 mg tid and 3.2 L, respectively -Na elevated intermittently when not drinking enough - need to avail him of / allow him to take up to 3.2 liters of po fluid per day -ensure between 2-3 L of fluid intake daily -continue ddavp at 0.05 mg/0.05 mg/0.1 mg (0.05mg above home dose) -appreciate Endocrine involvement -labs QOD - decrease further if stable # Fractured left lower molar: -Likely occurred with seizure, no evidence of acute infection. Extraction to occur in non-urgent manner pending availability, but per dentistry, not likely anytime soon. # Urinary retention - improved: - monitor - PRN bladder scan/straight cath # HTN - continue metoprolol IV access: none Tubes/Drains: none DVT PPX: SCD Anticipated Disposition: Currently nursing home is not feasible - needs to be able to (at a minimum) walk to the bathroom and go up/down 13 stairs (which mimics the current living situation at his nursing home). Per our SW, [facility] is discussing options but no current viable option. SNFs declined. Team Pager( Coverage 27/01): # [phone] PCP: NAKIA Cifuentes [phone] Attestation: IPI Certification I certify that I am a D-H credentialed attending provider with admitting privileges and that the patient meets or has met medical necessity to require an inpatient IPI level of care meeting a minimumof two midnights or is on the CMS inpatient only procedure list (status C) due to: the patient has met Inpatient IPI criteria and is awaiting rehabilitation or half-way facility placement withactive referrals in process Crista Aguilar MD PCP: NAKIA Cifuentes [phone] DANAY MONGE MD 01/20/2018 * Danay Monge MD - 01/19/2018 12:17 PM EDT Hospital Medicine Attending Daily Progress Note Admit Date: 09/02/2017 Hospital Day 139 days Active Hospital Problems Diagnosis ??? S/P ORIF left acetabulum fracture 09/04/2017 Dr. Lance ??? Acute urinary retention ??? Diabetes insipidus ??? Adrenal insufficiency ??? Panhypopituitarism ??? Seizure disorder ??? Hypothyroidism Resolved Hospital Problems Diagnosis Date Resolved ??? Postoperative anemia due to acute blood loss 12/09/2017 [facility] Active Non-Hospital Problems Diagnosis ??? Insomnia ??? Blind ??? CVA (cerebral vascular accident) ??? Urinary incontinence Inpatient Medications: Scheduled ??? levothyroxine 225 mcg Oral QAM ??? desmopressin 0.05 mg Oral 2 times per day ??? desmopressin 0.1 mg Oral Nightly ??? metoprolol succinate 50 mg Oral Daily ??? traZODone 50 mg Oral Nightly ??? acetaminophen 650 mg Oral TID ??? melatonin 9 mg Oral Nightly ??? QUEtiapine 250 mg Oral Nightly ??? calcium carbonate 500 mg Oral Nightly ??? hydrocortisone 10 mg Oral Daily at Noon ??? senna-docusate 2 tablet Oral BID ??? testosterone 5 g Transdermal Nightly ??? methyl salicylate-menthol Topical (Top) BID ??? cholecalciferol (Vitamin D3) 1,000 Units Oral Daily ??? hydrocortisone 20 mg Oral QAM ??? pantoprazole 40 mg Oral QAM AC ??? zonisamide 200 mg Oral Nightly Continuous infusions: PRN: ibuprofen, QUEtiapine, polyethylene glycol (MIRALAX)oral powder, simethicone, bisacodyl, naphazoline-pheniramine Interval History: no events overnight Physical Exam Vitals Range last 24 hrs Temperature Temp: [36.5 ??C (97.7 ??F)-36.6 ??C (97.8 ??F)] Heart Rate Heart Rate: [95-101] Blood Pressure BP: (110-128)/(68-73) Respiratory Rate Resp: [17-19] SpO2 SpO2: [97 %-98 %] Intake/Output Summary (Last 24 hours) at 01/19/18 1217 Last data filed at 01/19/18 1100 Gross per 24 hour Intake 3200 ml Output 2525 ml Net 675 ml No data found. Body mass index is 30.85 kg/(m^2). Physical Exam General - lying in bed, nad CV - RRR, no m/r/g Lungs - CTA anteriorly Abd - Soft, ND, +BS, non-tender to palpation Ext - Warm, no edema Neuro - Pupils relative fixed (stable), grossly motor intact - no acute changes Studies reviewed in eDH. Remarkable for the following: LABS: Last 3 wbc, hgb, hct plt Recent Labs 01/16/18 0502 12/25/17 0550 12/23/17 0641 WBC 5.0 4.9 4.8 HGB 11.2* 11.9* 10.6* HCT 35.5* 36.4* 34.7* PLATELET 298 313 286 Last 3 Lytes Recent Labs 01/19/18 0721 01/17/18 0517 01/16/18 0502 12/28/17 0004 12/25/17 0550 NA 142 140 146* < > 146* < > 149* K 3.6 3.4* 3.7 < > 3.6 -- 3.6 CL 103 102 108* < > 104 -- 108* CO2 23 24 23 < > 25 -- 25 BUN -- -- 17 -- 22* -- 14 CREATININE -- -- 0.83 -- 0.90 -- 0.63* < > = values in this interval not displayed. Last 3 LFTs Recent Labs 09/04/17 0358 AST 23 ALT 31 ALKPHOS 75 BILITOT 0.5 BILIDIR 0.1 FSBG Trend No results for input(s): POCGLU in the last 72 hours. MICRO: No results for input(s): URINECULTURE in the last 720 hours. No results for input(s): GRAMSTAIN, BFCX, LOWERRESPCX, TISSUECX in the last 720 hours. No results for input(s): BLOODCX in the last 720 hours. ECG: No results for input(s): DIAGLINE, QTCCALC in the last 720 hours. VASCULAR: No results for input(s): VBTEXTRPT in the last 720 hours[address] IMAGING: CT facial 10/20 IMPRESSION Multiple dental caries. Dental restorations limits resolution somewhat but no definite molar fracture can be seen. Consider Panorex of the mandible. CT pelvis MSK 09/03 IMPRESSION 1. Comminuted left acetabular fracture involving the medial wall with posttraumatic protrusio deformity. 2. The flat contour of the left femoral head is consistent with fracture. I do not however see displaced fracture typical the shear injury is seen in the setting. It is possible this base of the represent a compression of the femoral surface. 3. Pelvic hematoma. XR Pelvis 11/18 Impression 1. Unchanged ORIF of left acetabular fracture. 2. The fracture lines are better characterized on CT exam. XR knee, L 11/17 Impression No fracture or dislocation No large knee effusion. 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 Agitated behavior issues presumed environmental given change from his normal nursing home to the variably hospital situation. Had been on opiates which were stopped earlier this stay - on tylenol and motrin prn. Earlier had consolidated sedating meds at bedtime to achieve better sleep schedule. Otherwise try to maintain activity during day and stimulated/interacting during the day with maintenance of his normal routine, as much as possible. He is WBAT, not able to return to current nursing home and appreciate CM/SW assistance who are reaching out to [facility] for other options - may be home opening in March per report. Denied at SNFs with behavior. [facility] seems only option but no viable current option for dispo. Plan: # Left acetabular fracture: Improved -s/p operative repair on 09/04/2017 and orthopedics advanced to WBAT BLE (11/21) -continue scheduled tylenol -continue prn ibuprofen # Toxic metabolic encephalopathy on baseline cognitive impairment with past CVA/hemorrhage from pituitary surgery: -encephalopathy has resolved - his ongoing waxing/waning periods of restlessness and yelling/moaning loudly alternating with periods of relative calm are normal per caregiver -continue quetiapine, trazodone, and melatonin at 8pm (his usual bed time per caregiver) -has additional quetiapine available prn for agitation -try to get him active and stimulated during the day -check bladder scan PRN / CIC PRN -cont bowel regimen -has not required physical restraints for several weeks # 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 -decreased hydrocortisone from 20/10/10 to 20/10 per endocrine on 11/16 -increased synthroid to 200 mcg 11/23 - free T4 0.98 11/28 - free T4 low again at 0.74 - discussed with endocrine 01/12 - recommended increased to 225mg (start 01/13) and repeat in 2 weeks (ordered for 01/26) -seizures managed with home zonisamide 200mg PO QHS per neurology. -treat DI as below # DI, Hyponatremia and hypernatremia: -sodium stable though slighly higher to 148 today -outpt ddAVP dosing and fluid restriction are 0.05 mg tid and 3.2 L, respectively -Na elevated intermittently when not drinking enough - need to avail him of / allow him to take up to 3.2 liters of po fluid per day -ensure between 2-3 L of fluid intake daily -continue ddavp at 0.05 mg/0.05 mg/0.1 mg (0.05mg above home dose) -appreciate Endocrine involvement -labs QOD - decrease further if stable # Fractured left lower molar: -Likely occurred with seizure, no evidence of acute infection. Extraction to occur in non-urgent manner pending availability, but per dentistry, not likely anytime soon. # Urinary retention - improved: - monitor - PRN bladder scan/straight cath # HTN - continue metoprolol IV access: none Tubes/Drains: none DVT PPX: SCD Anticipated Disposition: Currently nursing home is not feasible - needs to be able to (at a minimum) walk to the bathroom and go up/down 13 stairs (which mimics the current living situation at his nursing home). Per our SW, [facility] is discussing options but no current viable option. SNFs declined. Team Pager(MD Coverage 27/01): # [phone] PCP: NAKIA Cifuentes [phone] Attestation: IPI Certification I certify that I am a D-H credentialed attending provider with admitting privileges and that the patient meets or has met medical necessity to require an inpatient IPI level of care meeting a minimumof two midnights or is on the [facility] inpatient only procedure list (status C) due to: the patient has met Inpatient IPI criteria and is awaiting rehabilitation or half-way facility placement withactive referrals in process Crista Aguilar MD PCP: NAKIA Cifuentes [phone] DANAY MONGE MD 01/19/2018 * Danay Monge MD - 01/18/2018 11:25 AM EDT Hospital Medicine Attending Daily Progress Note Admit Date: 09/02/2017 Hospital Day 138 days Active Hospital Problems Diagnosis ??? S/P ORIF left acetabulum fracture 09/04/2017 Dr. Lance ??? Acute urinary retention ??? Diabetes insipidus ??? Adrenal insufficiency ??? Panhypopituitarism ??? Seizure disorder ??? Hypothyroidism Resolved Hospital Problems Diagnosis Date Resolved ??? Postoperative anemia due to acute blood loss 12/09/2017 [facility] Active Non-Hospital Problems Diagnosis ??? Insomnia ??? Blind ??? CVA (cerebral vascular accident) ??? Urinary incontinence Inpatient Medications: Scheduled ??? levothyroxine 225 mcg Oral QAM ??? desmopressin 0.05 mg Oral 2 times per day ??? desmopressin 0.1 mg Oral Nightly ??? metoprolol succinate 50 mg Oral Daily ??? traZODone 50 mg Oral Nightly ??? acetaminophen 650 mg Oral TID ??? melatonin 9 mg Oral Nightly ??? QUEtiapine 250 mg Oral Nightly ??? calcium carbonate 500 mg Oral Nightly ??? hydrocortisone 10 mg Oral Daily at Noon ??? senna-docusate 2 tablet Oral BID ??? testosterone 5 g Transdermal Nightly ??? methyl salicylate-menthol Topical (Top) BID ??? cholecalciferol (Vitamin D3) 1,000 Units Oral Daily ??? hydrocortisone 20 mg Oral QAM ??? pantoprazole 40 mg Oral QAM AC ??? zonisamide 200 mg Oral Nightly Continuous infusions: PRN: ibuprofen, QUEtiapine, polyethylene glycol (MIRALAX)oral powder, simethicone, bisacodyl, naphazoline-pheniramine Interval History: no events overnight Physical Exam Vitals Range last 24 hrs Temperature Temp: [36.5 ??C (97.7 ??F)-37.2 ??C (99 ??F)] Heart Rate Heart Rate: [88-101] Blood Pressure BP: (116-121)/(62-77) Respiratory Rate Resp: [20-22] SpO2 SpO2: [96 %] Intake/Output Summary (Last 24 hours) at 01/18/18 1125 Last data filed at 01/18/18 0811 Gross per 24 hour Intake 1320 ml Output 2650 ml Net -1330 ml No data found. Body mass index is 30.85 kg/(m^2). Physical Exam General - lying in bed, nad CV - RRR, no m/r/g Lungs - CTA anteriorly Abd - Soft, ND, +BS, non-tender to palpation Ext - Warm, no edema Neuro - Pupils relative fixed (stable), grossly motor intact - no acute changes Studies reviewed in eDH. Remarkable for the following: LABS: Last 3 wbc, hgb, hct plt Recent Labs 01/16/18 0502 12/25/17 0550 12/23/17 0641 WBC 5.0 4.9 4.8 HGB 11.2* 11.9* 10.6* HCT 35.5* 36.4* 34.7* PLATELET 298 313 286 Last 3 Lytes Recent Labs 01/17/18 0517 01/16/18 0502 01/15/18 0612 12/28/17 0004 12/25/17 0550 NA 140 146* 148* < > 146* < > 149* K 3.4* 3.7 Not Perf < > 3.6 -- 3.6 CL 102 108* 110* < > 104 -- 108* CO2 24 23 23 < > 25 -- 25 BUN -- 17 -- -- 22* -- 14 CREATININE -- 0.83 -- -- 0.90 -- 0.63* < > = values in this interval not displayed. Last 3 LFTs Recent Labs 09/04/17 0358 AST 23 ALT 31 ALKPHOS 75 BILITOT 0.5 BILIDIR 0.1 FSBG Trend No results for input(s): POCGLU in the last 72 hours. MICRO: No results for input(s): URINECULTURE in the last 720 hours. No results for input(s): GRAMSTAIN, BFCX, LOWERRESPCX, TISSUECX in the last 720 hours. No results for input(s): BLOODCX in the last 720 hours. ECG: No results for input(s): DIAGLINE, QTCCALC in the last 720 hours. VASCULAR: No results for input(s): VBTEXTRPT in the last 720 hours[address] IMAGING: CT facial 10/20 IMPRESSION Multiple dental caries. Dental restorations limits resolution somewhat but no definite molar fracture can be seen. Consider Panorex of the mandible. CT pelvis MSK 09/03 IMPRESSION 1. Comminuted left acetabular fracture involving the medial wall with posttraumatic protrusio deformity. 2. The flat contour of the left femoral head is consistent with fracture. I do not however see displaced fracture typical the shear injury is seen in the setting. It is possible this base of the represent a compression of the femoral surface. 3. Pelvic hematoma. XR Pelvis 11/18 Impression 1. Unchanged ORIF of left acetabular fracture. 2. The fracture lines are better characterized on CT exam. XR knee, L 11/17 Impression No fracture or dislocation No large knee effusion. 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 Agitated behavior issues presumed environmental given change from his normal nursing home to the variably hospital situation. Had been on opiates which were stopped earlier this stay - on tylenol and motrin prn. Earlier had consolidated sedating meds at bedtime to achieve better sleep schedule. Otherwise try to maintain activity during day and stimulated/interacting during the day with maintenance of his normal routine, as much as possible. He is WBAT, not able to return to current nursing home and appreciate CM/SW assistance who are reaching out to [facility] for other options - may be home opening in March per report. Denied at SNFs with behavior. [facility] seems only option but no viable current option for dispo. Plan: # Left acetabular fracture: Improved -s/p operative repair on 09/04/2017 and orthopedics advanced to WBAT BLE (11/21) -continue scheduled tylenol -continue prn ibuprofen # Toxic metabolic encephalopathy on baseline cognitive impairment with past CVA/hemorrhage from pituitary surgery: -encephalopathy has resolved - his ongoing waxing/waning periods of restlessness and yelling/moaning loudly alternating with periods of relative calm are normal per caregiver -continue quetiapine, trazodone, and melatonin at 8pm (his usual bed time per caregiver) -has additional quetiapine available prn for agitation -try to get him active and stimulated during the day -check bladder scan PRN / CIC PRN -cont bowel regimen -has not required physical restraints for several weeks # 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 -decreased hydrocortisone from 20/10/10 to 20/10 per endocrine on 11/16 -increased synthroid to 200 mcg 11/23 - free T4 0.98 11/28 - free T4 low again at 0.74 - discussed with endocrine 01/12 - recommended increased to 225mg (start 01/13) and repeat in 2 weeks (ordered for 01/26) -seizures managed with home zonisamide 200mg PO QHS per neurology. -treat DI as below # DI, Hyponatremia and hypernatremia: -sodium stable though slighly higher to 148 today -outpt ddAVP dosing and fluid restriction are 0.05 mg tid and 3.2 L, respectively -Na elevated intermittently when not drinking enough - need to avail him of / allow him to take up to 3.2 liters of po fluid per day -ensure between 2-3 L of fluid intake daily -continue ddavp at 0.05 mg/0.05 mg/0.1 mg (0.05mg above home dose) -appreciate Endocrine involvement -labs QOD - decrease further if stable # Fractured left lower molar: -Likely occurred with seizure, no evidence of acute infection. Extraction to occur in non-urgent manner pending availability, but per dentistry, not likely anytime soon. # Urinary retention - improved: - monitor - PRN bladder scan/straight cath # HTN - continue metoprolol IV access: none Tubes/Drains: none DVT PPX: SCD Anticipated Disposition: Currently nursing home is not feasible - needs to be able to (at a minimum) walk to the bathroom and go up/down 13 stairs (which mimics the current living situation at his nursing home). Per our SW, [facility] is discussing options but no current viable option. SNFs declined. Team Pager(MD Coverage 27/01): # [phone] PCP: NAKIA Cifuentes [phone] Attestation: IPI Certification I certify that I am a D-H credentialed attending provider with admitting privileges and that the patient meets or has met medical necessity to require an inpatient IPI level of care meeting a minimumof two midnights or is on the CMS inpatient only procedure list (status C) due to: the patient has met Inpatient IPI criteria and is awaiting rehabilitation or half-way facility placement withactive referrals in process Crista Aguilar MD PCP: NAKIA Cifuentes [phone] DANAY MONGE MD 01/18/2018 * Danay Monge MD - 01/17/2018 11:35 AM EDT Hospital Medicine Attending Daily Progress Note Admit Date: 09/02/2017 Hospital Day 137 days Active Hospital Problems Diagnosis ??? S/P ORIF left acetabulum fracture 09/04/2017 Dr. Lance ??? Acute urinary retention ??? Diabetes insipidus ??? Adrenal insufficiency ??? Panhypopituitarism ??? Seizure disorder ??? Hypothyroidism Resolved Hospital Problems Diagnosis Date Resolved ??? Postoperative anemia due to acute blood loss 12/09/2017 [facility] Active Non-Hospital Problems Diagnosis ??? Insomnia ??? Blind ??? CVA (cerebral vascular accident) ??? Urinary incontinence Inpatient Medications: Scheduled ??? levothyroxine 225 mcg Oral QAM ??? desmopressin 0.05 mg Oral 2 times per day ??? desmopressin 0.1 mg Oral Nightly ??? metoprolol succinate 50 mg Oral Daily ??? traZODone 50 mg Oral Nightly ??? acetaminophen 650 mg Oral TID ??? melatonin 9 mg Oral Nightly ??? QUEtiapine 250 mg Oral Nightly ??? calcium carbonate 500 mg Oral Nightly ??? hydrocortisone 10 mg Oral Daily at Noon ??? senna-docusate 2 tablet Oral BID ??? testosterone 5 g Transdermal Nightly ??? methyl salicylate-menthol Topical (Top) BID ??? cholecalciferol (Vitamin D3) 1,000 Units Oral Daily ??? hydrocortisone 20 mg Oral QAM ??? pantoprazole 40 mg Oral QAM AC ??? zonisamide 200 mg Oral Nightly Continuous infusions: PRN: ibuprofen, QUEtiapine, polyethylene glycol (MIRALAX)oral powder, simethicone, bisacodyl, naphazoline-pheniramine Interval History: no events overnight Physical Exam Vitals Range last 24 hrs Temperature Temp: [36.5 ??C (97.7 ??F)-36.6 ??C (97.9 ??F)] Heart Rate Heart Rate: [92-100] Blood Pressure BP: (118-120)/(77-91) Respiratory Rate Resp: [16-22] SpO2 SpO2: [96 %-98 %] Intake/Output Summary (Last 24 hours) at 01/17/18 1135 Last data filed at 01/17/18 1017 Gross per 24 hour Intake 1580 ml Output 2350 ml Net -770 ml No data found. Body mass index is 30.85 kg/(m^2). Physical Exam General - lying in bed, nad CV - RRR, no m/r/g Lungs - CTA anteriorly Abd - Soft, ND, +BS, non-tender to palpation Ext - Warm, no edema Neuro - Pupils relative fixed (stable), grossly motor intact - no acute changes Studies reviewed in eDH. Remarkable for the following: LABS: Last 3 wbc, hgb, hct plt Recent Labs 01/16/18 0502 12/25/17 0550 12/23/17 0641 WBC 5.0 4.9 4.8 HGB 11.2* 11.9* 10.6* HCT 35.5* 36.4* 34.7* PLATELET 298 313 286 Last 3 Lytes Recent Labs 01/17/18 0517 01/16/18 0502 01/15/18 0612 12/28/17 0004 12/25/17 0550 NA 140 146* 148* < > 146* < > 149* K 3.4* 3.7 Not Perf < > 3.6 -- 3.6 CL 102 108* 110* < > 104 -- 108* CO2 24 23 23 < > 25 -- 25 BUN -- 17 -- -- 22* -- 14 CREATININE -- 0.83 -- -- 0.90 -- 0.63* < > = values in this interval not displayed. Last 3 LFTs Recent Labs 09/04/17 0358 AST 23 ALT 31 ALKPHOS 75 BILITOT 0.5 BILIDIR 0.1 FSBG Trend No results for input(s): POCGLU in the last 72 hours. MICRO: No results for input(s): URINECULTURE in the last 720 hours. No results for input(s): GRAMSTAIN, BFCX, LOWERRESPCX, TISSUECX in the last 720 hours. No results for input(s): BLOODCX in the last 720 hours. ECG: No results for input(s): DIAGLINE, QTCCALC in the last 720 hours. VASCULAR: No results for input(s): VBTEXTRPT in the last 720 hours[address] IMAGING: CT facial 10/20 IMPRESSION Multiple dental caries. Dental restorations limits resolution somewhat but no definite molar fracture can be seen. Consider Panorex of the mandible. CT pelvis MSK 09/03 IMPRESSION 1. Comminuted left acetabular fracture involving the medial wall with posttraumatic protrusio deformity. 2. The flat contour of the left femoral head is consistent with fracture. I do not however see displaced fracture typical the shear injury is seen in the setting. It is possible this base of the represent a compression of the femoral surface. 3. Pelvic hematoma. XR Pelvis 11/18 Impression 1. Unchanged ORIF of left acetabular fracture. 2. The fracture lines are better characterized on CT exam. XR knee, L 11/17 Impression No fracture or dislocation No large knee effusion. 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 Agitated behavior issues presumed environmental given change from his normal nursing home to the variably hospital situation. Had been on opiates which were stopped earlier this stay - on tylenol and motrin prn. Earlier had consolidated sedating meds at bedtime to achieve better sleep schedule. Otherwise try to maintain activity during day and stimulated/interacting during the day with maintenance of his normal routine, as much as possible. He is WBAT, not able to return to current nursing home and appreciate CM/SW assistance who are reaching out to [facility] for other options - may be home opening in March per report. Denied at SNFs with behavior. [facility] seems only option but no viable current option for dispo. Plan: # Left acetabular fracture: Improved -s/p operative repair on 09/04/2017 and orthopedics advanced to WBAT BLE (11/21) -continue scheduled tylenol -continue prn ibuprofen # Toxic metabolic encephalopathy on baseline cognitive impairment with past CVA/hemorrhage from pituitary surgery: -encephalopathy has resolved - his ongoing waxing/waning periods of restlessness and yelling/moaning loudly alternating with periods of relative calm are normal per caregiver -continue quetiapine, trazodone, and melatonin at 8pm (his usual bed time per caregiver) -has additional quetiapine available prn for agitation -try to get him active and stimulated during the day -check bladder scan PRN / CIC PRN -cont bowel regimen -has not required physical restraints for several weeks # 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 -decreased hydrocortisone from 25/04/10 to 20/10 per endocrine on 11/16 -increased synthroid to 200 mcg 11/23 - free T4 0.98 11/28 - free T4 low again at 0.74 - discussed with endocrine 01/12 - recommended increased to 225mg (start 01/13) and repeat in 2 weeks (ordered for 01/26) -seizures managed with home zonisamide 200mg PO QHS per neurology. -treat DI as below # DI, Hyponatremia and hypernatremia: -sodium stable though slighly higher to 148 today -outpt ddAVP dosing and fluid restriction are 0.05 mg tid and 3.2 L, respectively -Na elevated intermittently when not drinking enough - need to avail him of / allow him to take up to 3.2 liters of po fluid per day -ensure between 2-3 L of fluid intake daily -continue ddavp at 0.05 mg/0.05 mg/0.1 mg (0.05mg above home dose) -appreciate Endocrine involvement -labs QOD - decrease further if stable # Fractured left lower molar: -Likely occurred with seizure, no evidence of acute infection. Extraction to occur in non-urgent manner pending availability, but per dentistry, not likely anytime soon. # Urinary retention - improved: - monitor - PRN bladder scan/straight cath # HTN - continue metoprolol IV access: none Tubes/Drains: none DVT PPX: SCD Anticipated Disposition: Currently nursing home is not feasible - needs to be able to (at a minimum) walk to the bathroom and go up/down 13 stairs (which mimics the current living situation at his nursing home). Per our SW, [facility] is discussing options but no current viable option. SNFs declined. Team Pager( Coverage 24/7): # [phone] PCP: NAKIA Cifuentes [phone] Attestation: IPI Certification I certify that I am a D-H credentialed attending provider with admitting privileges and that the patient meets or has met medical necessity to require an inpatient IPI level of care meeting a minimumof two midnights or is on the CMS inpatient only procedure list (status C) due to: the patient has met Inpatient IPI criteria and is awaiting rehabilitation or half-way facility placement withactive referrals in process Crista Aguilar MD PCP: NAKIA Cifuentes [phone] DANAY MONGE MD 01/17/2018 * Crista Aguilar MD - 01/16/2018 4:49 PM EDT Hospital Medicine Attending Daily Progress Note Admit Date: 09/02/2017 Hospital Day 136 days Active Hospital Problems Diagnosis ??? S/P ORIF left acetabulum fracture 09/04/2017 Dr. Lance ??? Acute urinary retention ??? Diabetes insipidus ??? Adrenal insufficiency ??? Panhypopituitarism ??? Seizure disorder ??? Hypothyroidism Resolved Hospital Problems Diagnosis Date Resolved ??? Postoperative anemia due to acute blood loss 12/09/2017 [facility] Active Non-Hospital Problems Diagnosis ??? Insomnia ??? Blind ??? CVA (cerebral vascular accident) ??? Urinary incontinence Interval History: No acute events ROS: Talked with [employer]ENER [employer] BLENDER. Miguel Angel went out to look at helicopters and sitting down for lunch. No acute concerns. Miguel Angel denies any complaints including pain. Physical Exam Vitals Range last 24 hrs Temperature Temp: [36.5 ??C (97.7 ??F)] Heart Rate Heart Rate: [104] Blood Pressure BP: (138)/(89) Respiratory Rate Resp: [20] SpO2 SpO2: [95 %] Intake/Output Summary (Last 24 hours) at 01/16/18 1649 Last data filed at 01/16/18 1155 Gross per 24 hour Intake 2640 ml Output 1850 ml Net 790 ml No data found. Body mass index is 30.85 kg/(m^2). Estimated Creatinine Clearance: 156.6 mL/min (based on Cr of 0.83). General - Sitting up in chair for lunch, NAD CV - RRR, no m/r/g Lungs - CTA anteriorly Abd - Soft, ND, +BS, non-tender to palpation Ext - Warm, no edema Neuro - Pupils relative fixed (stable), grossly motor intact - no acute changes Studies reviewed in eDH. Remarkable for the following: LABS: Recent Labs 01/16/18 0502 WBC 5.0 HGB 11.2* HCT 35.5* PLATELET 298 Recent Labs 01/16/18 0502 01/15/18 0612 01/13/18 0623 NA 146* 148* 142 K 3.7 Not Perf 3.6 CL 108* 110* 106 CO2 23 23 23 BUN 17 -- -- CREATININE 0.83 -- -- No results for input(s): AST, ALT, ALKPHOS, BILITOT, BILIDIR in the last 168 hours. Recent Labs 01/16/18 0502 CALCIUM 10.1 No results for input(s): PT, INR, PTT in the last 168 hours. No results for input(s): CK, TROPONINT in the last 168 hours. FSBG Trend No results for input(s): POCGLU in the last 72 hours. MICRO: No results for input(s): URINECULTURE in the last 720 hours. No results for input(s): GRAMSTAIN, BFCX, LOWERRESPCX, TISSUECX in the last 720 hours. No results for input(s): BLOODCX in the last 720 hours. ECG: No results for input(s): DIAGLINE, QTCCALC in the last 720 hours. VASCULAR: No results for input(s): VBTEXTRPT in the last 720 hours. IMAGING: CT facial 10/20 IMPRESSION Multiple dental caries. Dental restorations limits resolution somewhat but no definite molar fracture can be seen. Consider Panorex of the mandible. CT pelvis MSK 09/03 IMPRESSION 1. Comminuted left acetabular fracture involving the medial wall with posttraumatic protrusio deformity. 2. The flat contour of the left femoral head is consistent with fracture. I do not however see displaced fracture typical the shear injury is seen in the setting. It is possible this base of the represent a compression of the femoral surface. 3. Pelvic hematoma. XR Pelvis 11/18 Impression 1. Unchanged ORIF of left acetabular fracture. 2. The fracture lines are better characterized on CT exam. XR knee, L 11/17 Impression No fracture or dislocation No large knee effusion. 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 ?? Agitated behavior issues presumed environmental given change from his normal nursing home to the variably hospital situation. Had been on opiates which were stopped earlier this stay - on tylenol and motrin prn. Earlier had consolidated sedating meds at bedtime to achieve better sleep schedule. Otherwise try to maintain activity during day and stimulated/interacting during the day with maintenance of his normal routine, as much as possible. He is WBAT, not able to return to current nursing home and appreciate CM/SW assistance who are reaching out to [facility] for other options - may be home opening in March per report. Denied at SNFs with behavior. [facility] seems only option but no viable current option for dispo. Plan: # Left acetabular fracture: Improved -s/p operative repair on 09/04/2017 and orthopedics advanced to WBAT BLE (11/21) -continue scheduled tylenol -continue prn ibuprofen ?? # Toxic metabolic encephalopathy on baseline cognitive impairment with past CVA/hemorrhage from pituitary surgery: -encephalopathy has resolved - his ongoing waxing/waning periods of restlessness and yelling/moaning loudly alternating with periods of relative calm are normal per caregiver -continue quetiapine, trazodone, and melatonin at 8pm (his usual bed time per caregiver) -has additional quetiapine available prn for agitation -try to get him active and stimulated during the day -check bladder scan PRN / CIC PRN -cont bowel regimen -has not required physical restraints for several weeks ?? # 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 -decreased hydrocortisone from 20//10 to 20/10 per endocrine on 11/16 -increased synthroid to 200 mcg 11/23 ??- free T4 0.98 11/28 - free T4 low again at 0.74 - discussed with endocrine 01/12 - recommended increased to 225mg (start 01/13) and repeat in 2 weeks (ordered for 01/26) -seizures managed with home zonisamide 200mg PO QHS per neurology.?? -treat DI as below ?? # DI, Hyponatremia and hypernatremia: -sodium stable though slighly higher to 148 today -outpt ddAVP dosing and fluid restriction are 0.05 mg tid and 3.2 L, respectively -Na elevated intermittently when not drinking enough - need to avail him of / allow him to take up to 3.2 liters of po fluid per day -ensure between 2-3 L of fluid intake daily -continue ddavp at 0.05 mg/0.05 mg/0.1 mg (0.05mg above home dose) -appreciate Endocrine involvement -labs QOD - decrease further if stable # Fractured left lower molar: -Likely occurred with seizure, no evidence of acute infection. Extraction to occur in non-urgent manner pending availability, but per dentistry, not likely anytime soon. ?? # Urinary retention - improved: - monitor - PRN bladder scan/straight cath # HTN - continue metoprolol ?? IV access: none Tubes/Drains: none DVT PPX: SCD Anticipated Disposition: Currently nursing home is not feasible - needs to be able to (at a minimum) walk to the bathroom and go up/down 13 stairs (which mimics the current living situation at his nursing home). Per our SW, [facility] is discussing options but no current viable option. SNFs declined. Team Pager( Coverage 27/01): # [phone] PCP: NAKIA Cifuentes [phone] Attestation: IPI Certification I certify that I am a D-H credentialed attending provider with admitting privileges and that the patient meets or has met medical necessity to require an inpatient IPI level of care meeting a minimumof two midnights or is on the CMS inpatient only procedure list (status C) due to: the patient has met Inpatient IPI criteria and is awaiting rehabilitation or half-way facility placement withactive referrals in process Crista Aguilar MD 01/16/2018 * Crista Aguilar MD - 01/15/2018 3:23 PM EDT Hospital Medicine Attending Daily Progress Note Admit Date: 09/02/2017 Hospital Day 135 days Active Hospital Problems Diagnosis ??? S/P ORIF left acetabulum fracture 09/04/2017 Dr. Lance ??? Acute urinary retention ??? Diabetes insipidus ??? Adrenal insufficiency ??? Panhypopituitarism ??? Seizure disorder ??? Hypothyroidism Resolved Hospital Problems Diagnosis Date Resolved ??? Postoperative anemia due to acute blood loss 12/09/2017 [facility] Active Non-Hospital Problems Diagnosis ??? Insomnia ??? Blind ??? CVA (cerebral vascular accident) ??? Urinary incontinence Interval History: No acute events ROS: Miguel Angel is sleeping in chair on my visit. ROS limited by mental status. Per [employer] sleeping more today -did not finish lunch. No other acute concerns. Physical Exam Vitals Range last 24 hrs Temperature Temp: [36.4 ??C (97.5 ??F)-36.7 ??C (98.1 ??F)] Heart Rate Heart Rate: [84] Blood Pressure BP: (108-135)/(78-83) Respiratory Rate Resp: [18-21] SpO2 SpO2: [91 %-99 %] Intake/Output Summary (Last 24 hours) at 01/15/18 1523 Last data filed at 01/15/18 1448 Gross per 24 hour Intake 476 ml Output 1450 ml Net -974 ml No data found. Body mass index is 30.85 kg/(m^2). Estimated Creatinine Clearance: 144.4 mL/min (based on Cr of 0.9). General - Sleeping in chair, NAD, opened eyes some and grunted CV - RRR, no m/r/g Lungs - CTA anteriorly Abd - Soft, ND, +BS, non-tender to palpation Ext - Warm, no edema Neuro - Pupils relative fixed (stable), grossly motor intact - no acute changes Studies reviewed in eDH. Remarkable for the following: LABS: No results for input(s): WBC, HGB, HCT, PLATELET in the last 168 hours. Recent Labs 01/15/18 0612 01/13/18 0623 01/12/18 0753 NA 148* 142 143 K Not Perf 3.6 3.7 CL 110* 106 102 CO2 23 23 23 No results for input(s): AST, ALT, ALKPHOS, BILITOT, BILIDIR in the last 168 hours. No results for input(s): CALCIUM, PHOS in the last 168 hours. No results for input(s): PT, INR, PTT in the last 168 hours. No results for input(s): CK, TROPONINT in the last 168 hours. FSBG Trend No results for input(s): POCGLU in the last 72 hours. MICRO: No results for input(s): URINECULTURE in the last 720 hours. No results for input(s): GRAMSTAIN, BFCX, LOWERRESPCX, TISSUECX in the last 720 hours. No results for input(s): BLOODCX in the last 720 hours. ECG: No results for input(s): DIAGLINE, QTCCALC in the last 720 hours. VASCULAR: No results for input(s): VBTEXTRPT in the last 720 hours. IMAGING: CT facial 10/20 IMPRESSION Multiple dental caries. Dental restorations limits resolution somewhat but no definite molar fracture can be seen. Consider Panorex of the mandible. CT pelvis MSK 09/03 IMPRESSION 1. Comminuted left acetabular fracture involving the medial wall with posttraumatic protrusio deformity. 2. The flat contour of the left femoral head is consistent with fracture. I do not however see displaced fracture typical the shear injury is seen in the setting. It is possible this base of the represent a compression of the femoral surface. 3. Pelvic hematoma. XR Pelvis 11/18 Impression 1. Unchanged ORIF of left acetabular fracture. 2. The fracture lines are better characterized on CT exam. XR knee, L 11/17 Impression No fracture or dislocation No large knee effusion. 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 ?? Agitated behavior issues presumed environmental given change from his normal nursing home to the variably hospital situation. Had been on opiates which were stopped earlier this stay - on tylenol and motrin prn. Earlier had consolidated sedating meds at bedtime to achieve better sleep schedule. Otherwise try to maintain activity during day and stimulated/interacting during the day with maintenance of his normal routine, as much as possible. He is WBAT, not able to return to current nursing home and appreciate CM/SW assistance who are reaching out to [facility] for other options - may be home opening in March per report. Denied at SNFs with behavior. [facility] seems only option but no viable current option for dispo. Possible just sleepiertoday if up more at night - nothing else localizing. Will check basic labs in the am. Plan: # Left acetabular fracture: Improved -s/p operative repair on 09/04/2017 and orthopedics advanced to WBAT BLE (11/21) -continue scheduled tylenol -continue prn ibuprofen ?? # Toxic metabolic encephalopathy on baseline cognitive impairment with past CVA/hemorrhage from pituitary surgery: -encephalopathy has resolved - his ongoing waxing/waning periods of restlessness and yelling/moaning loudly alternating with periods of relative calm are normal per caregiver -continue quetiapine, trazodone, and melatonin at 8pm (his usual bed time per caregiver) -has additional quetiapine available prn for agitation -try to get him active and stimulated during the day -check bladder scan PRN / CIC PRN -cont bowel regimen -has not required physical restraints for several weeks ?? # 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 -decreased hydrocortisone from 20/10/10 to 20/10 per endocrine on 11/16 -increased synthroid to 200 mcg 11/23 ??- free T4 0.98 11/28 - free T4 low again at 0.74 - discussed with endocrine 01/12 - recommended increased to 225mg (start 7/10) and repeat in 2 weeks (ordered for 01/26) -seizures managed with home zonisamide 200mg PO QHS per neurology.?? -treat DI as below ?? # DI, Hyponatremia and hypernatremia: -sodium stable though slighly higher to 148 today -outpt ddAVP dosing and fluid restriction are 0.05 mg tid and 3.2 L, respectively -Na elevated intermittently when not drinking enough - need to avail him of / allow him to take up to 3.2 liters of po fluid per day -ensure between 2-3 L of fluid intake daily -continue ddavp at 0.05 mg/0.05 mg/0.1 mg (0.05mg above home dose) -appreciate Endocrine involvement -labs QOD - decrease further if stable # Fractured left lower molar: -Likely occurred with seizure, no evidence of acute infection. Extraction to occur in non-urgent manner pending availability, but per dentistry, not likely anytime soon. ?? # Urinary retention - improved: - monitor - PRN bladder scan/straight cath # HTN - continue metoprolol ?? IV access: none Tubes/Drains: none DVT PPX: SCD Anticipated Disposition: Currently nursing home is not feasible - needs to be able to (at a minimum) walk to the bathroom and go up/down 13 stairs (which mimics the current living situation at his nursing home). Per our SW, [facility] is discussing options but no current viable option. SNFs declined. Team Pager( Coverage 27/01): # [phone] PCP: NAKIA Cifuentes [phone] Attestation: IPI Certification I certify that I am a D-H credentialed attending provider with admitting privileges and that the patient meets or has met medical necessity to require an inpatient IPI level of care meeting a minimumof two midnights or is on the CMS inpatient only procedure list (status C) due to: the patient has met Inpatient IPI criteria and is awaiting rehabilitation or half-way facility placement withactive referrals in process Crista Aguilar MD 01/15/2018 * Tricia Gerber RN - 01/15/2018 1:14 PM EDT Left message for Lc Hull# [phone]- director [place] [facility] Left voice mail for Carissa Posada, Chief of Developmental Services for the [facility]. [phone]. Tricia Gerber RN Case Homemaker Companion of Care Management [email or web address] Pager: [phone] * Adia Clarke RN - 01/15/2018 10:34 AM EDT A+O to self and place. VSS. Pt agitated this morning, PRN seroquil given with good effect. Attempted to ambulate pt late morning, pt stood, took one step and then lifted legs. Four staff members assisted him back into the chair. Pt did not fall. No complaints of pain. Report given to HEATHER Whyte. * Crista Aguilar MD - 01/14/2018 2:36 PM EDT Hospital Medicine Attending Daily Progress Note Admit Date: 09/02/2017 Hospital Day 134 days Active Hospital Problems Diagnosis ??? S/P ORIF left acetabulum fracture 09/04/2017 Dr. Lance ??? Acute urinary retention ??? Diabetes insipidus ??? Adrenal insufficiency ??? Panhypopituitarism ??? Seizure disorder ??? Hypothyroidism Resolved Hospital Problems Diagnosis Date Resolved ??? Postoperative anemia due to acute blood loss 12/09/2017 PM Active Non-Hospital Problems Diagnosis ??? Insomnia ??? Blind ??? CVA (cerebral vascular accident) ??? Urinary incontinence Interval History: No acute events ROS: Miguel Angel is sitting in chair without acute complaints. Doing awesome. Denies pain or SOB. No acute concerns from [employer] but notices still some unsteadiness with gait. Physical Exam Vitals Range last 24 hrs Temperature Temp: [36.4 ??C (97.5 ??F)-36.7 ??C (98.1 ??F)] Heart Rate Heart Rate: [87-99] Blood Pressure BP: (127-140)/(78-87) Respiratory Rate Resp: [18-22] SpO2 SpO2: [97 %-98 %] Intake/Output Summary (Last 24 hours) at 01/14/18 1436 Last data filed at 01/14/18 1416 Gross per 24 hour Intake 1310 ml Output 1525 ml Net -215 ml No data found. Body mass index is 30.85 kg/(m^2). Estimated Creatinine Clearance: 144.4 mL/min (based on Cr of 0.9). General - Lying in bed awake, resting, NAD CV - RRR, no m/r/g Lungs - CTA anteriorly Abd - Soft, ND, +BS, non-tender to palpation Ext - Warm, no edema Neuro - Pupils relative fixed (stable), grossly motor intact - no acute changes Studies reviewed in eDH. Remarkable for the following: LABS: No results for input(s): WBC, HGB, HCT, PLATELET in the last 168 hours. Recent Labs 01/13/18 0623 01/12/18 0753 01/11/18 0722 NA 142 143 141 K 3.6 3.7 3.7 CL 106 102 101 CO2 23 23 24 No results for input(s): AST, ALT, ALKPHOS, BILITOT, BILIDIR in the last 168 hours. No results for input(s): CALCIUM, PHOS in the last 168 hours. No results for input(s): PT, INR, PTT in the last 168 hours. No results for input(s): CK, TROPONINT in the last 168 hours. FSBG Trend No results for input(s): POCGLU in the last 72 hours. MICRO: No results for input(s): URINECULTURE in the last 720 hours. No results for input(s): GRAMSTAIN, BFCX, LOWERRESPCX, TISSUECX in the last 720 hours. No results for input(s): BLOODCX in the last 720 hours. ECG: No results for input(s): DIAGLINE, QTCCALC in the last 720 hours. VASCULAR: No results for input(s): VBTEXTRPT in the last 720 hours. IMAGING: CT facial 10/20 IMPRESSION Multiple dental caries. Dental restorations limits resolution somewhat but no definite molar fracture can be seen. Consider Panorex of the mandible. CT pelvis MSK 09/03 IMPRESSION 1. Comminuted left acetabular fracture involving the medial wall with posttraumatic protrusio deformity. 2. The flat contour of the left femoral head is consistent with fracture. I do not however see displaced fracture typical the shear injury is seen in the setting. It is possible this base of the represent a compression of the femoral surface. 3. Pelvic hematoma. XR Pelvis 11/18 Impression 1. Unchanged ORIF of left acetabular fracture. 2. The fracture lines are better characterized on CT exam. XR knee, L 11/17 Impression No fracture or dislocation No large knee effusion. 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 ?? Agitated behavior issues presumed environmental given change from his normal nursing home to the variably hospital situation. Had been on opiates which were stopped earlier this stay - on tylenol and motrin prn. Earlier had consolidated sedating meds at bedtime to achieve better sleep schedule. Otherwise try to maintain activity during day and stimulated/interacting during the day with maintenance of his normal routine, as much as possible. He is WBAT, need to clarify if able to return to current nursing home and may need to explore other options with coordinator of his housing if this is not possible - per they are exploring options including facility that may be available in March. Plan: # Left acetabular fracture: Improved -s/p operative repair on 09/04/2017 and orthopedics advanced to WBAT BLE (11/21) -continue scheduled tylenol -continue prn ibuprofen ?? # Toxic metabolic encephalopathy on baseline cognitive impairment with past CVA/hemorrhage from pituitary surgery: -encephalopathy has resolved - his ongoing waxing/waning periods of restlessness and yelling/moaning loudly alternating with periods of relative calm are normal per caregiver -continue quetiapine, trazodone, and melatonin at 8pm (his usual bed time per caregiver) -has additional quetiapine available prn for agitation -try to get him active and stimulated during the day -check bladder scan PRN / CIC PRN -cont bowel regimen -has not required physical restraints for several weeks ?? # 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 -decreased hydrocortisone from 25/04/10 to 20 per endocrine on 11/16 -increased synthroid to 200 mcg 11/23 ??- free T4 0.98 11/28 - free T4 low again at 0.74 - discussed with endocrine 01/12 - recommended increased to 225mg (start 01/13) and repeat in 2 weeks (ordered for 01/26) -seizures managed with home zonisamide 200mg PO QHS per neurology.?? -treat DI as below ?? # DI, Hyponatremia and hypernatremia: sodium stable in low to mid 140s -outpt ddAVP dosing and fluid restriction are 0.05 mg tid and 3.2 L, respectively -Na elevated intermittently when not drinking enough - need to avail him of / allow him to take up to 3.2 liters of po fluid per day -ensure between 2-3 L of fluid intake daily -continue ddavp at 0.05 mg/0.05 mg/0.1 mg (0.05mg above home dose) -appreciate Endocrine involvement -labs QOD - decrease further if stable # Fractured left lower molar: -Likely occurred with seizure, no evidence of acute infection. Extraction to occur in non-urgent manner pending availability, but per dentistry, not likely anytime soon. ?? # Urinary retention - improved: - monitor - PRN bladder scan/straight cath # HTN - continue metoprolol ?? IV access: none Tubes/Drains: none DVT PPX: SCD Anticipated Disposition: Currently nursing home does not seem feasible - needs to be able to (at a minimum) walk to the bathroom and go up/down 13 stairs (which mimics the current living situation at his nursing home). Per our SW, [facility] is discussing options but no current viable option. SNFs declined. Team Pager( Coverage 27/01): # [phone] PCP: NAKIA Cifuentes [phone] Attestation: IPI Certification I certify that I am a D-H credentialed attending provider with admitting privileges and that the patient meets or has met medical necessity to require an inpatient IPI level of care meeting a minimumof two midnights or is on the CMS inpatient only procedure list (status C) due to: the patient has met Inpatient IPI criteria and is awaiting rehabilitation or half-way facility placement withactive referrals in process Crista Aguilar MD 01/14/2018 * Crista Aguilar MD - 01/13/2018 4:49 PM EDT Hospital Medicine Attending Daily Progress Note Admit Date: 09/02/2017 Hospital Day 133 days Active Hospital Problems Diagnosis ??? S/P ORIF left acetabulum fracture 09/04/2017 Dr. Lance ??? Acute urinary retention ??? Diabetes insipidus ??? Adrenal insufficiency ??? Panhypopituitarism ??? Seizure disorder ??? Hypothyroidism Resolved Hospital Problems Diagnosis Date Resolved ??? Postoperative anemia due to acute blood loss 12/09/2017 PMH Active Non-Hospital Problems Diagnosis ??? Insomnia ??? Blind ??? CVA (cerebral vascular accident) ??? Urinary incontinence Interval History: No acute events Na 142 this morning ROS: Miguel Angel is resting without complaints on my visit. No acute concerns per sitter - some typical vocalizing behavior. Physical Exam Vitals Range last 24 hrs Temperature Temp: [36.4 ??C (97.5 ??F)-36.7 ??C (98.1 ??F)] Heart Rate Heart Rate: [91-101] Blood Pressure BP: (108-140)/(71-87) Respiratory Rate Resp: [17-23] SpO2 SpO2: [97 %-98 %] Intake/Output Summary (Last 24 hours) at 01/13/18 1649 Last data filed at 01/13/18 1505 Gross per 24 hour Intake 1801 ml Output 1050 ml Net 751 ml No data found. Body mass index is 30.85 kg/(m^2). Estimated Creatinine Clearance: 144.4 mL/min (based on Cr of 0.9). General - Lying in bed awake, resting, NAD CV - RRR, no m/r/g Lungs - CTA anteriorly Abd - Soft, ND, +BS, non-tender to palpation Ext - Warm, no edema Neuro - Pupils relative fixed (stable), grossly motor intact - no acute changes Studies reviewed in eDH. Remarkable for the following: LABS: No results for input(s): WBC, HGB, HCT, PLATELET in the last 168 hours. Recent Labs 01/13/18 0623 01/12/18 0753 01/11/18 0722 NA 142 143 141 K 3.6 3.7 3.7 CL 106 102 101 CO2 23 23 24 No results for input(s): AST, ALT, ALKPHOS, BILITOT, BILIDIR in the last 168 hours. No results for input(s): CALCIUM, PHOS in the last 168 hours. No results for input(s): PT, INR, PTT in the last 168 hours. No results for input(s): CK, TROPONINT in the last 168 hours. FSBG Trend No results for input(s): POCGLU in the last 72 hours. MICRO: No results for input(s): URINECULTURE in the last 720 hours. No results for input(s): GRAMSTAIN, BFCX, LOWERRESPCX, TISSUECX in the last 720 hours. No results for input(s): BLOODCX in the last 720 hours. ECG: No results for input(s): DIAGLINE, QTCCALC in the last 720 hours. VASCULAR: No results for input(s): VBTEXTRPT in the last 720 hours. IMAGING: CT facial 10/20 IMPRESSION Multiple dental caries. Dental restorations limits resolution somewhat but no definite molar fracture can be seen. Consider Panorex of the mandible. CT pelvis MSK 09/03 IMPRESSION 1. Comminuted left acetabular fracture involving the medial wall with posttraumatic protrusio deformity. 2. The flat contour of the left femoral head is consistent with fracture. I do not however see displaced fracture typical the shear injury is seen in the setting. It is possible this base of the represent a compression of the femoral surface. 3. Pelvic hematoma. XR Pelvis 11/18 Impression 1. Unchanged ORIF of left acetabular fracture. 2. The fracture lines are better characterized on CT exam. XR knee, L 11/17 Impression No fracture or dislocation No large knee effusion. 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 ?? Agitated behavior issues presumed environmental given change from his normal nursing home to the variably hospital situation. Had been on opiates which were stopped earlier this stay - on tylenol and motrin prn. Earlier had consolidated sedating meds at bedtime to achieve better sleep schedule. Otherwise try to maintain activity during day and stimulated/interacting during the day with maintenance of his normal routine, as much as possible. He is WBAT, need to clarify if able to return to current nursing home and may need to explore other options with coordinator of his housing if this is not possible. Plan: # Left acetabular fracture: Improved -s/p operative repair on 09/04/2017 and orthopedics advanced to WBAT BLE (11/21) -continue scheduled tylenol -continue prn ibuprofen ?? # Toxic metabolic encephalopathy on baseline cognitive impairment with past CVA/hemorrhage from pituitary surgery: -encephalopathy has resolved - his ongoing waxing/waning periods of restlessness and yelling/moaning loudly alternating with periods of relative calm are normal per caregiver -continue quetiapine, trazodone, and melatonin at 8pm (his usual bed time per caregiver) -has additional quetiapine available prn for agitation -try to get him active and stimulated during the day -check bladder scan PRN / CIC PRN -cont bowel regimen -has not required physical restraints for several weeks ?? # 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 -decreased hydrocortisone from 20/10/10 to 20/10 per endocrine on 11/16 -increased synthroid to 200 mcg 11/23 ??- free T4 0.98 11/28 - free T4 low again at 0.74 - discussed with endocrine 01/12 - recommended increased to 225mg (start 01/13) and repeat in 2 weeks (ordered for 01/26) -seizures managed with home zonisamide 200mg PO QHS per neurology.?? -treat DI as below ?? # DI, Hyponatremia and hypernatremia: sodium stable in low to mid 140s -outpt ddAVP dosing and fluid restriction are 0.05 mg tid and 3.2 L, respectively -Na elevated intermittently when not drinking enough - need to avail him of / allow him to take up to 3.2 liters of po fluid per day -ensure between 2-3 L of fluid intake daily -continue ddavp at 0.05 mg/0.05 mg/0.1 mg (0.05mg above home dose) -appreciate Endocrine involvement -decrease labs to QOD # Fractured left lower molar: -Likely occurred with seizure, no evidence of acute infection. Extraction to occur in non-urgent manner pending availability, but per dentistry, not likely anytime soon. ?? # Urinary retention: appears to occur most often in AM - closely monitor for now - PRN bladder scan/straight cath # HTN - continue metoprolol ?? IV access: none Tubes/Drains: none DVT PPX: SCD Anticipated Disposition: SNF vs back to nursing home --> no longer being seen by PT/OT, he continues to take a few steps with assistance and using a walker but needs to be able to (at a minimum) walk to the bathroom and go up/down 13 stairs (which mimics the current living situation at his nursing home) Team Pager( Coverage 27/01): # [phone] PCP: NAKIA Cifuentes [phone] Attestation: IPI Certification I certify that I am a D-H credentialed attending provider with admitting privileges and that the patient meets or has met medical necessity to require an inpatient IPI level of care meeting a minimumof two midnights or is on the CMS inpatient only procedure list (status C) due to: the patient has met Inpatient IPI criteria and is awaiting rehabilitation or half-way facility placement withactive referrals in process Crista Aguilar MD 01/13/2018 * Tricia Gerber RN - 01/12/2018 4:32 PM EDT Received call from Carissa Posada, Chief of Developmental Services for the [facility]. [phone]. Stated they are having a large meeting with the state today to help findappropriate housing for Miguel Angel. Reports they should have an update on plan by 01/13/18. Tricia Gerber RN Case Homemaker Companion of Care Management [email or web address] Pager: [phone] * Guerrero Bah MD - 01/12/2018 4:29 PM EDT Images from the original note were not included. 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 Na is within normal limits - 143. Currently ordered for 0.05 mg of DDAVP PO 9 am 3 pm and 0.1 mg at9 pm. Prior days we gave some extra doses of DDAVP (0.05 mg 01/10/2018 at 10 am) as the sodium had uptrended 01/09/2018 (149). Primary team checked FT4 and is low 0.74. He has been on 200 mcg of levothyroxine since 11/23/2017 and no missed doses. I will add on TT3. Agreed to increase the dose of the levothyroxine to 225 mcg daily and check thyroid function test FT4 and total T3 in 1-2 weeks for trend. Guerrero Tillman MD Endocrinology, Diabetes and Metabolism Fellow Pager #[phone] 01/12/2018 * Crista Aguilar MD - 01/12/2018 4:19 PM EDT Hospital Medicine Attending Daily Progress Note Admit Date: 09/02/2017 Hospital Day 132 days Active Hospital Problems Diagnosis ??? S/P ORIF left acetabulum fracture 09/04/2017 Dr. Lance ??? Acute urinary retention ??? Diabetes insipidus ??? Adrenal insufficiency ??? Panhypopituitarism ??? Seizure disorder ??? Hypothyroidism Resolved Hospital Problems Diagnosis Date Resolved ??? Postoperative anemia due to acute blood loss 12/09/2017 PMH Active Non-Hospital Problems Diagnosis ??? Insomnia ??? Blind ??? CVA (cerebral vascular accident) ??? Urinary incontinence Interval History: No acute events Na 143 this morning ROS: Miguel Angel denies pain or abdominal pain. Groaning on my exam. No acute concerns from nursing today. Physical Exam Vitals Range last 24 hrs Temperature Temp: [36.7 ??C (98.1 ??F)] Heart Rate Heart Rate: [110-116] Blood Pressure BP: (116-132)/(71-87) Respiratory Rate Resp: [19] SpO2 SpO2: [96 %] Intake/Output Summary (Last 24 hours) at 01/12/18 1619 Last data filed at 01/12/18 1618 Gross per 24 hour Intake 950 ml Output 875 ml Net 75 ml No data found. Body mass index is 30.85 kg/(m^2). Estimated Creatinine Clearance: 144.4 mL/min (based on Cr of 0.9). General - Lying in bed awake, groaning intermittently HEENT - Anicteric sclera CV - RRR, no m/r/g Lungs - CTA anteriorly Abd - Soft, ND, +BS, non-tender to palpation Ext - Warm, no edema Neuro - Pupils relative fixed (stable), grossly motor intact - no acute changes Studies reviewed in eDH. Remarkable for the following: LABS: No results for input(s): WBC, HGB, HCT, PLATELET in the last 168 hours. Recent Labs 01/12/18 0753 01/11/18 0722 01/10/18 0510 NA 143 141 148* K 3.7 3.7 3.7 CL 102 101 106 CO2 23 24 24 No results for input(s): AST, ALT, ALKPHOS, BILITOT, BILIDIR in the last 168 hours. No results for input(s): CALCIUM, PHOS in the last 168 hours. No results for input(s): PT, INR, PTT in the last 168 hours. No results for input(s): CK, TROPONINT in the last 168 hours. FSBG Trend No results for input(s): POCGLU in the last 72 hours. MICRO: No results for input(s): URINECULTURE in the last 720 hours. No results for input(s): GRAMSTAIN, BFCX, LOWERRESPCX, TISSUECX in the last 720 hours. No results for input(s): BLOODCX in the last 720 hours. ECG: No results for input(s): DIAGLINE, QTCCALC in the last 720 hours. VASCULAR: No results for input(s): VBTEXTRPT in the last 720 hours. IMAGING: CT facial 10/20 IMPRESSION Multiple dental caries. Dental restorations limits resolution somewhat but no definite molar fracture can be seen. Consider Panorex of the mandible. CT pelvis MSK 09/03 IMPRESSION 1. Comminuted left acetabular fracture involving the medial wall with posttraumatic protrusio deformity. 2. The flat contour of the left femoral head is consistent with fracture. I do not however see displaced fracture typical the shear injury is seen in the setting. It is possible this base of the represent a compression of the femoral surface. 3. Pelvic hematoma. XR Pelvis 11/18 Impression 1. Unchanged ORIF of left acetabular fracture. 2. The fracture lines are better characterized on CT exam. XR knee, L 11/17 Impression No fracture or dislocation No large knee effusion. 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 ?? Agitated behavior issues presumed environmental given change from his normal nursing home to the variably hospital situation. Stopped opioids as it does not appear pain is driving agitation - will still treat as if L leg pain is part of the issue but try to spare opioids with tylenol and ibuprofen now that he is a few months out from acetabular fx repair. Also had consolidating sedating meds at bedtime to achieve better sleep schedule. Otherwise try to maintain activity during day and stimulated/interacting during the day with maintenance of his normal routine, as much as possible. He is WBAT, need to clarify if able to return to current nursing home and may need to explore other options with coordinator of his housing if this is not possible. Plan: # Left acetabular fracture: Improved -s/p operative repair on 09/04/2017 and orthopedics advanced to WBAT BLE (11/21) -continue scheduled tylenol -continue prn ibuprofen ?? # Toxic metabolic encephalopathy on baseline cognitive impairment with past CVA/hemorrhage from pituitary surgery: -encephalopathy has resolved - his ongoing waxing/waning periods of restlessness and yelling/moaning loudly alternating with periods of relative calm are normal per caregiver -continue quetiapine, trazodone, and melatonin at 8pm (his usual bed time per caregiver) -has additional quetiapine available prn for agitation -try to get him active and stimulated during the day -check bladder scan PRN / CIC PRN -cont bowel regimen -has not required physical restraints for several weeks ?? # 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 -decreased hydrocortisone from 20/10/10 to 20/10 per endocrine on 11/16 -increased synthroid to 200 mcg 11/23 ??- free T4 0.98 11/28 - free T4 low again at 0.74 - discussed with endocrine - recommended increased to 225mg (start 01/13) and repeat in 2 weeks (ordered for 01/26) -seizures managed with home zonisamide 200mg PO QHS per neurology.?? -treat DI as below ?? # DI, Hyponatremia and hypernatremia: sodium stable in low to mid 140s -outpt ddAVP dosing and fluid restriction are 0.05 mg tid and 3.2 L, respectively -Na elevated intermittently when not drinking enough - need to avail him of / allow him to take up to 3.2 liters of po fluid per day -ensure between 2-3 L of fluid intake daily -continue ddavp at 0.05 mg/0.05 mg/0.1 mg (0.05mg above home dose) -appreciate Endocrine involvement # Fractured left lower molar: -Likely occurred with seizure, no evidence of acute infection. Extraction to occur in non-urgent manner pending availability, but per dentistry, not likely anytime soon. ?? # Urinary retention: appears to occur most often in AM - closely monitor for now - PRN bladder scan/straight cath # HTN - continue metoprolol ?? IV access: none Tubes/Drains: none DVT PPX: SCD Anticipated Disposition: SNF vs back to nursing home --> no longer being seen by PT/OT, he continues to take a few steps with assistance and using a walker but needs to be able to (at a minimum) walk to the bathroom and go up/down 13 stairs (which mimics the current living situation at his nursing home) Team Pager( Coverage 27/01): # [phone] PCP: NAKIA Cifuentes [phone] Attestation: IPI Certification I certify that I am a D-H credentialed attending provider with admitting privileges and that the patient meets or has met medical necessity to require an inpatient IPI level of care meeting a minimumof two midnights or is on the CMS inpatient only procedure list (status C) due to: the patient has met Inpatient IPI criteria and is awaiting rehabilitation or half-way facility placement withactive referrals in process Crista Aguilar MD 01/12/2018 * Crista Aguilar MD - 01/11/2018 12:26 PM EDT Hospital Medicine Attending Daily Progress Note Admit Date: 09/02/2017 Hospital Day 131 days Active Hospital Problems Diagnosis ??? S/P ORIF left acetabulum fracture 09/04/2017 Dr. Lance ??? Acute urinary retention ??? Diabetes insipidus ??? Adrenal insufficiency ??? Panhypopituitarism ??? Seizure disorder ??? Hypothyroidism Resolved Hospital Problems Diagnosis Date Resolved ??? Postoperative anemia due to acute blood loss 12/09/2017 PMH Active Non-Hospital Problems Diagnosis ??? Insomnia ??? Blind ??? CVA (cerebral vascular accident) ??? Urinary incontinence Interval History: No acute events Na 141 this morning ROS: Awake and groaning on my visit. No acute concerns from sitter and caregiver. Miguel Angel denies pain or abdominal pain. Had BM this morning. Physical Exam Vitals Range last 24 hrs Temperature Temp: [36.7 ??C (98.1 ??F)] Heart Rate Heart Rate: [102-108] Blood Pressure BP: (103-122)/(68-83) Respiratory Rate Resp: [18] SpO2 SpO2: [95 %] Intake/Output Summary (Last 24 hours) at 01/11/18 1226 Last data filed at 01/11/18 0900 Gross per 24 hour Intake 2990 ml Output 0 ml Net 2990 ml No data found. Body mass index is 30.85 kg/(m^2). Estimated Creatinine Clearance: 144.4 mL/min (based on Cr of 0.9). General - Lying in bed awake HEENT - Anicteric sclera CV - RRR, no m/r/g Lungs - CTA anteriorly Abd - Soft, ND, +BS, non-tender to palpation Ext - Warm, no edema Neuro - Pupils relative fixed (stable), grossly motor intact - no acute changes Studies reviewed in eDH. Remarkable for the following: LABS: No results for input(s): WBC, HGB, HCT, PLATELET in the last 168 hours. Recent Labs 01/11/18 0722 01/10/18 0510 01/09/18 0506 NA 141 148* 149* K 3.7 3.7 3.8 CL 101 106 110* CO2 24 24 25 No results for input(s): AST, ALT, ALKPHOS, BILITOT, BILIDIR in the last 168 hours. No results for input(s): CALCIUM, PHOS in the last 168 hours. No results for input(s): PT, INR, PTT in the last 168 hours. No results for input(s): CK, TROPONINT in the last 168 hours. FSBG Trend No results for input(s): POCGLU in the last 72 hours. MICRO: No results for input(s): URINECULTURE in the last 720 hours. No results for input(s): GRAMSTAIN, BFCX, LOWERRESPCX, TISSUECX in the last 720 hours. No results for input(s): BLOODCX in the last 720 hours. ECG: No results for input(s): DIAGLINE, QTCCALC in the last 720 hours. VASCULAR: No results for input(s): VBTEXTRPT in the last 720 hours[address] IMAGING: CT facial 10/20 IMPRESSION Multiple dental caries. Dental restorations limits resolution somewhat but no definite molar fracture can be seen. Consider Panorex of the mandible. CT pelvis MSK 09/03 IMPRESSION 1. Comminuted left acetabular fracture involving the medial wall with posttraumatic protrusio deformity. 2. The flat contour of the left femoral head is consistent with fracture. I do not however see displaced fracture typical the shear injury is seen in the setting. It is possible this base of the represent a compression of the femoral surface. 3. Pelvic hematoma. XR Pelvis 11/18 Impression 1. Unchanged ORIF of left acetabular fracture. 2. The fracture lines are better characterized on CT exam. XR knee, L 11/17 Impression No fracture or dislocation No large knee effusion. 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 ?? Agitated behavior issues presumed environmental given change from his normal nursing home to the variably hospital situation. Stopped opioids as it does not appear pain is driving agitation - will still treat as if L leg pain is part of the issue but try to spare opioids with tylenol and ibuprofen now that he is a few months out from acetabular fx repair. Also had consolidating sedating meds at bedtime to achieve better sleep schedule. Otherwise try to maintain activity during day and stimulated/interacting during the day with maintenance of his normal routine, as much as possible. He is WBAT, need to clarify if able to return to current nursing home and may need to explore other options with coordinator of his housing if this is not possible. Plan: # Left acetabular fracture: Improved -s/p operative repair on 09/04/2017 and orthopedics advanced to WBAT BLE (11/21) -continue scheduled tylenol -continue prn ibuprofen ?? # Toxic metabolic encephalopathy on baseline cognitive impairment with past CVA/hemorrhage from pituitary surgery: -encephalopathy has resolved - his ongoing waxing/waning periods of restlessness and yelling/moaning loudly alternating with periods of relative calm are normal per caregiver -continue quetiapine, trazodone, and melatonin at 8pm (his usual bed time per caregiver) -has additional quetiapine available prn for agitation -try to get him active and stimulated during the day -check bladder scan PRN / CIC PRN -cont bowel regimen -has not required physical restraints for several weeks ?? # 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 -decreased hydrocortisone from 20/10/10 to 20/10 per endocrine on 11/16 -increased synthroid to 200 mcg 11/23 ??- free T4 0.98 11/28 - free T4 low again - discuss with endocrinology tomorrow -seizures managed with home zonisamide 200mg PO QHS per neurology.?? -treat DI as below ?? # DI, Hyponatremia and hypernatremia: sodium stable in high 140s but 141 today -outpt ddAVP dosing and fluid restriction are 0.05 mg tid and 3.2 L, respectively -Na elevated intermittently when not drinking enough - need to avail him of / allow him to take up to 3.2 liters of po fluid per day -ensure between 2-3 L of fluid intake daily -continue ddavp at 0.05 mg/0.05 mg/0.1 mg (0.05mg above home dose) -appreciate Endocrine involvement -Follow Na tomorrow - if lower consider decreased DDAVP back to home dose # Fractured left lower molar: -Likely occurred with seizure, no evidence of acute infection. Extraction to occur in non-urgent manner pending availability, but per dentistry, not likely anytime soon. ?? # Urinary retention: appears to occur most often in AM - closely monitor for now - PRN bladder scan/straight cath # HTN - continue metoprolol ?? IV access: none Tubes/Drains: none DVT PPX: SCD Anticipated Disposition: SNF vs back to nursing home --> no longer being seen by PT/OT, he continues to take a few steps with assistance and using a walker but needs to be able to (at a minimum) walk to the bathroom and go up/down 13 stairs (which mimics the current living situation at his nursing home) Team Pager(MD Coverage 27/01): # [phone] PCP: NAKIA Cifuentes [phone] Attestation: IPI Certification I certify that I am a D-H credentialed attending provider with admitting privileges and that the patient meets or has met medical necessity to require an inpatient IPI level of care meeting a minimumof two midnights or is on the [facility] inpatient only procedure list (status C) due to: the patient has met Inpatient IPI criteria and is awaiting rehabilitation or half-way facility placement withactive referrals in process Crista Aguilar MD 01/11/2018 * Kwesi Meneses, RN - 01/11/2018 5:40 AM EDT No acute events overnight, VSS. Pt appearing to have slept well, 1:1 sitter remains at bedside for safety. Pt incontinent urine, No BM this shift. * Crista Aguilar MD - 01/10/2018 1:35 PM EDT Hospital Medicine Attending Daily Progress Note Admit Date: 09/02/2017 Hospital Day 130 days Active Hospital Problems Diagnosis ??? S/P ORIF left acetabulum fracture 09/04/2017 Dr. Lance ??? Acute urinary retention ??? Diabetes insipidus ??? Adrenal insufficiency ??? Panhypopituitarism ??? Seizure disorder ??? Hypothyroidism Resolved Hospital Problems Diagnosis Date Resolved ??? Postoperative anemia due to acute blood loss 12/09/2017 PMH Active Non-Hospital Problems Diagnosis ??? Insomnia ??? Blind ??? CVA (cerebral vascular accident) ??? Urinary incontinence Interval History: No acute events Na 148 this morning ROS: Sleeping on my visit - discussed with sitter and nursing - he is having a calm day without acute concerns thus far Physical Exam Vitals Range last 24 hrs Temperature Temp: [36.4 ??C (97.5 ??F)-36.6 ??C (97.9 ??F)] Heart Rate Heart Rate: [97-105] Blood Pressure BP: (112-131)/(74-87) Respiratory Rate Resp: [17-20] SpO2 SpO2: [97 %] Intake/Output Summary (Last 24 hours) at 01/10/18 1354 Last data filed at 01/10/18 1231 Gross per 24 hour Intake 2010 ml Output 1400 ml Net 610 ml Patient Vitals for the past 168 hrs: Weight 01/03/18 2330 97.5 kg (215 lb) Body mass index is 30.85 kg/(m^2). Estimated Creatinine Clearance: 144.4 mL/min (based on Cr of 0.9). General - Sleeping comfortably on my exam Studies reviewed in eDH. Remarkable for the following: LABS: No results for input(s): WBC, HGB, HCT, PLATELET in the last 168 hours. Recent Labs 01/10/18 0510 01/09/18 0506 01/08/18 0607 NA 148* 149* 149* K 3.7 3.8 3.7 CL 106 110* 111* CO2 24 25 24 No results for input(s): AST, ALT, ALKPHOS, BILITOT, BILIDIR in the last 168 hours. No results for input(s): CALCIUM, PHOS in the last 168 hours. No results for input(s): PT, INR, PTT in the last 168 hours. No results for input(s): CK, TROPONINT in the last 168 hours. FSBG Trend No results for input(s): POCGLU in the last 72 hours. MICRO: No results for input(s): URINECULTURE in the last 720 hours. No results for input(s): GRAMSTAIN, BFCX, LOWERRESPCX, TISSUECX in the last 720 hours. No results for input(s): BLOODCX in the last 720 hours. ECG: No results for input(s): DIAGLINE, QTCCALC in the last 720 hours. VASCULAR: No results for input(s): VBTEXTRPT in the last 720 hours. IMAGING: CT facial 10/20 IMPRESSION Multiple dental caries. Dental restorations limits resolution somewhat but no definite molar fracture can be seen. Consider Panorex of the mandible. CT pelvis MSK 09/03 IMPRESSION 1. Comminuted left acetabular fracture involving the medial wall with posttraumatic protrusio deformity. 2. The flat contour of the left femoral head is consistent with fracture. I do not however see displaced fracture typical the shear injury is seen in the setting. It is possible this base of the represent a compression of the femoral surface. 3. Pelvic hematoma. XR Pelvis 11/18 Impression 1. Unchanged ORIF of left acetabular fracture. 2. The fracture lines are better characterized on CT exam. XR knee, L 11/17 Impression No fracture or dislocation No large knee effusion. 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 ?? Agitated behavior issues presumed environmental given change from his normal nursing home to the variably hospital situation. Stopped opioids as it does not appear pain is driving agitation - will still treat as if L leg pain is part of the issue but try to spare opioids with tylenol and ibuprofen now that he is a few months out from acetabular fx repair. Also had consolidating sedating meds at bedtime to achieve better sleep schedule. Otherwise try to maintain activity during day and stimulated/interacting during the day with maintenance of his normal routine, as much as possible. Now WBAT, need to clarify if able to return to current nursing home and may need to explore other options with coordinator of his housing if this is not possible. Plan: # Left acetabular fracture: Improved -s/p operative repair on 09/04/2017 and orthopedics advanced to WBAT BLE (11/21) -continue scheduled tylenol -continue prn ibuprofen ?? # Toxic metabolic encephalopathy on baseline cognitive impairment with past CVA/hemorrhage from pituitary surgery: -encephalopathy has resolved - his ongoing waxing/waning periods of restlessness and yelling/moaning loudly alternating with periods of relative calm are normal per caregiver -continue quetiapine, trazodone, and melatonin at 8pm (his usual bed time per caregiver) -has additional quetiapine available prn for agitation -try to get him active and stimulated during the day -check bladder scan PRN / CIC PRN -cont bowel regimen -has not required physical restraints for several weeks ?? # 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 -decreased hydrocortisone from 20/10/10 to 20/10 per endocrine on 11/16 -increased synthroid to 200 mcg 11/23 ??- free T4 0.98 11/28 - recheck with labs tomorrow -seizures managed with home zonisamide 200mg PO QHS per neurology.?? -treat DI as below ?? # DI, Hyponatremia and hypernatremia: sodium stable in high 140s -outpt ddAVP dosing and fluid restriction are 0.05 mg tid and 3.2 L, respectively -Na elevated intermittently when not drinking enough - need to avail him of / allow him to take up to 3.2 liters of po fluid per day -ensure between 2-3 L of fluid intake daily -continue ddavp at 0.05 mg/0.05 mg/0.1 mg (0.05mg above home dose) -appreciate Endocrine involvement # Fractured left lower molar: -Likely occurred with seizure, no evidence of acute infection. Extraction to occur in non-urgent manner pending availability, but per dentistry, not likely anytime soon. ?? # Urinary retention: appears to occur most often in AM - closely monitor for now - PRN bladder scan/straight cath # HTN - continue metoprolol ?? IV access: none Tubes/Drains: none DVT PPX: SCD Anticipated Disposition: SNF vs back to nursing home --> no longer being seen by PT/OT, he continues to take a few steps with assistance and using a walker but needs to be able to (at a minimum) walk to the bathroom and go up/down 13 stairs (which mimics the current living situation at his nursing home) Team Pager( Coverage 27/01): # [phone] PCP: NAKIA Cifuentes [phone] Attestation: IPI Certification I certify that I am a D-H credentialed attending provider with admitting privileges and that the patient meets or has met medical necessity to require an inpatient IPI level of care meeting a minimumof two midnights or is on the CMS inpatient only procedure list (status C) due to: the patient has met Inpatient IPI criteria and is awaiting rehabilitation or half-way facility placement withactive referrals in process Crista Aguilar MD 01/10/2018 * Yadi Mccauley MD - 01/10/2018 11:39 AM EDT Images from the original note were not included. 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 New events since last time seen: As we recommended, he has been getting DDAVP 0.05 mg morning, 0.05mg afternoon and 0.1 mg night time. His sodium has been trended and still above reference range. Patient was seen at the bedside and was sleeping. No past medical history on file. Past Surgical History: Procedure Laterality Date ??? PRO OPEN CROSSCUTTER ROLLED GLASS FIX ACETABULAR FX Left 09/04/2017 @OPEN TREATMENT, ACETABULAR FX (WRVU 25.41) performed by Amy Lance MD at [facility] MA[facility] OR No family history on file. Current Medications: Scheduled Meds: ??? desmopressin 0.05 mg Oral 2 times per day ??? desmopressin 0.1 mg Oral Nightly ??? metoprolol succinate 50 mg Oral Daily ??? traZODone 50 mg Oral Nightly ??? acetaminophen 650 mg Oral TID ??? melatonin 9 mg Oral Nightly ??? QUEtiapine 250 mg Oral Nightly ??? levothyroxine 200 mcg Oral QAM ??? calcium carbonate 500 mg Oral Nightly ??? hydrocortisone 10 mg Oral Daily at Noon ??? senna-docusate 2 tablet Oral BID ??? testosterone 5 g Transdermal Nightly ??? methyl salicylate-menthol Topical (Top) BID ??? cholecalciferol (Vitamin D3) 1,000 Units Oral Daily ??? hydrocortisone 20 mg Oral QAM ??? pantoprazole 40 mg Oral QAM AC ??? zonisamide 200 mg Oral Nightly Continuous Infusions: PRN Meds:.ibuprofen, QUEtiapine, polyethylene glycol (MIRALAX)oral powder, simethicone, bisacodyl, naphazoline-pheniramine Allergies Allergen Reactions ??? Lopid [Gemfibrozil] Physical Exam: BP 112/74 Pulse (!) 103 Temp 36.6 ??C (97.9 ??F) (Oral) Resp 20 Ht 177.8 cm (5' 10) Wt 97.5 kg (215 lb) SpO2 97% BMI 30.85 kg/m2 Patient was not examined Labs: Ref. 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 His main active issue is hypernatremia. He has known DI and receiving DDAVP 0.05 mg morning, 0.05 mg afternoon and 0.1 mg night time. Although we can correct hypernatremia with fluids, he sleeps throughout the day and difficult to encourage PO intake. For now we will give an extra dose of DDAVP 0.05 mg this morning (will get a total of 0.1 mg this morning). Will continue trending Na. Thank you for allowing us participate in the care of this patient. Patient was seen and discussed with Dr. Mccauley. Guerrero Tillman MD Endocrinology, Diabetes and Metabolism Fellow Pager #[phone] 01/10/2018 I have seen the patient and reviewed Dr. Guerrero Nick's above history and I agree with the details as written. The assessment and plan were formulated in discussion with me and I agree with them as documented. Yadi Mccauley MD, PhD, FACP, FACE * Tricia Gerber RN - 01/09/2018 3:02 PM EDT Left message for Subha Tejeda # [phone]- nurse who oversees nursing home. Left message for Lc Hull# [phone]- director of [facility] town offices in [place], [place] . They do not know of any other facilities that could accommodate patient needs. Left voice mail for Carissa Posada, Chief of Developmental Services for the [facility]. [phone]. Case management will continue to follow. Tricia Gerber RN Case Homemaker Companion of Care Management [email or web address] Pager: [phone] * Maldonado Salazar MD - 01/09/2018 11:43 AM EDT Hospital Medicine Attending Daily Progress Note Admit Date: 09/02/2017 Hospital Day 129 days Active Hospital Problems Diagnosis ??? S/P ORIF left acetabulum fracture 09/04/2017 Dr. Lance ??? Acute urinary retention ??? Diabetes insipidus ??? Adrenal insufficiency ??? Panhypopituitarism ??? Seizure disorder ??? Hypothyroidism Resolved Hospital Problems Diagnosis Date Resolved ??? Postoperative anemia due to acute blood loss 12/09/2017 PMH Active Non-Hospital Problems Diagnosis ??? Insomnia ??? Blind ??? CVA (cerebral vascular accident) ??? Urinary incontinence Interval History / ROS: - quietly listening to [employer] book this morning Physical Exam Vitals Range last 24 hrs Temperature Temp: [36.4 ??C (97.5 ??F)] Heart Rate Heart Rate: [103-106] Blood Pressure BP: (128-138)/(60-89) Respiratory Rate Resp: [16] SpO2 SpO2: [96 %] Intake/Output Summary (Last 24 hours) at 01/09/18 1143 Last data filed at 01/08/18 2350 Gross per 24 hour Intake 1200 ml Output 0 ml Net 1200 ml Patient Vitals for the past 168 hrs: Weight 01/03/18 2330 97.5 kg (215 lb) 01/03/18 1000 95.7 kg (210 lb 15.7 oz) Body mass index is 30.85 kg/(m^2). Estimated Creatinine Clearance: 144.4 mL/min (based on Cr of 0.9). CONSTITUTIONAL: awake, alert, participatory HEENT: Anticteric, MMM CHEST: RRR, no murmur LUNGS: CTAB ABDOMEN: soft, NT/ND EXTREMITIES: No edema SKIN: Warm/dry, no rash NEURO: pupils relatively fixed at ~4 mm diameter with no discernible constriction to light, horizontal nystagmus present, no facial asymmetry Studies reviewed in eDH. Remarkable for the following: LABS: No results for input(s): WBC, HGB, HCT, PLATELET in the last 168 hours. Recent Labs 01/09/18 0506 01/08/18 0607 01/07/18 0701 NA 149* 149* 148* K 3.8 3.7 Not Perf CL 110* 111* 112* CO2 25 24 26 No results for input(s): AST, ALT, ALKPHOS, BILITOT, BILIDIR in the last 168 hours. No results for input(s): CALCIUM, PHOS in the last 168 hours. No results for input(s): PT, INR, PTT in the last 168 hours. No results for input(s): CK, TROPONINT in the last 168 hours. FSBG Trend No results for input(s): POCGLU in the last 72 hours. MICRO: No results for input(s): URINECULTURE in the last 720 hours. No results for input(s): GRAMSTAIN, BFCX, LOWERRESPCX, TISSUECX in the last 720 hours. No results for input(s): BLOODCX in the last 720 hours. ECG: No results for input(s): DIAGLINE, QTCCALC in the last 720 hours. VASCULAR: No results for input(s): VBTEXTRPT in the last 720 hours[address] IMAGING: CT facial 10/20 IMPRESSION Multiple dental caries. Dental restorations limits resolution somewhat but no definite molar fracture can be seen. Consider Panorex of the mandible. CT pelvis MSK 09/03 IMPRESSION 1. Comminuted left acetabular fracture involving the medial wall with posttraumatic protrusio deformity. 2. The flat contour of the left femoral head is consistent with fracture. I do not however see displaced fracture typical the shear injury is seen in the setting. It is possible this base of the represent a compression of the femoral surface. 3. Pelvic hematoma. XR Pelvis 11/18 Impression 1. Unchanged ORIF of left acetabular fracture. 2. The fracture lines are better characterized on CT exam. XR knee, L 11/17 Impression No fracture or dislocation No large knee effusion. 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 Advanced to WBAT BLE on 11/21 with assistive device at all times. ?? Agitated behavior issues presumed environmental given change from his normal nursing home to the variably hospital situation. Stopped opioids as it does not appear pain is driving agitation - will still treat as if L leg pain is part of the issue but try to spare opioids with tylenol and ibuprofen now that he is a few months out from acetabular fx repair. Also consolidating sedating meds at bedtimeto achieve better sleep schedule. Otherwise try to get him out and about and stimulated/interactingduring the day with maintenance of his normal routine, as much as possible. Plan: # Left acetabular fracture: Improved -s/p operative repair on 09/04/2017 and orthopedics advanced to WBAT BLE (11/21) -continue scheduled tylenol -continue prn ibuprofen ?? # Toxic metabolic encephalopathy on baseline cognitive impairment with past CVA/hemorrhage from pituitary surgery: -encephalopathy has resolved - his ongoing waxing/waning periods of restlessness and yelling/moaning loudly alternating with periods of relative calm are normal per caregiver -continue quetiapine, trazodone, and melatonin at 8pm (his usual bed time per caregiver) -has additional quetiapine available prn for agitation -try to get him active and stimulated during the day -check bladder scan PRN / CIC PRN -cont bowel regimen -has not required physical restraints for several weeks ?? # 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 -decreased hydrocortisone from 20/10/10 to 20/10 per endocrine on 11/16 -increased synthroid to 200 mcg 11/23. ? -seizures managed with home zonisamide 200mg PO QHS per neurology.?? -treat DI as below ?? # DI, Hyponatremia and hypernatremia: sodium stable -outpt ddAVP dosing and fluid restriction are 0.05 mg tid and 3.2 L, respectively -Na elevated intermittently when not drinking enough - need to avail him of / allow him to take up to 3.2 liters of po fluid per day -ensure between 2-3 L of fluid intake daily -continue ddavp at 0.05 mg/0.05 mg/0.1 mg -appreciate Endocrine involvement # Fractured left lower molar: -Likely occurred with seizure, no evidence of acute infection. Extraction to occur in non-urgent manner pending availability, but per dentistry, not likely anytime soon. ?? # Urinary retention: appears to occur most often in AM - closely monitor for now - PRN bladder scan/straight cath # HTN - continue metoprolol ?? IV access: none Tubes/Drains: none DVT PPX: SCD Anticipated Disposition: SNF vs back to nursing home --> no longer being seen by PT/OT, he continues to take a few steps with assistance and using a walker but needs to be able to (at a minimum) walk to the bathroom and go up/down 13 stairs (which mimics the current living situation at his nursing home) Team Pager( Coverage 27/01): # [phone] PCP: NAKIA Cifuentes [phone] Attestation: IPI Certification I certify that I am a D-H credentialed attending provider with admitting privileges and that the patient meets or has met medical necessity to require an inpatient IPI level of care meeting a minimumof two midnights or is on the CMS inpatient only procedure list (status C) due to: the patient has met Inpatient IPI criteria and is awaiting rehabilitation or half-way facility placement withactive referrals in process Maldonado Salazar MD 01/09/2018 * Lauren Nelson DT - 01/08/2018 3:35 PM EDT Nutrition Services - Follow-up Note Miguel Angel Mason : 1990 AGE: 27 y.o. Patient Active Problem List Diagnosis Date Noted ??? *Hospital-S/P ORIF left acetabulum fracture 09/04/2017 Dr. Lance 09/02/2017 ??? Hospital-Acute urinary retention 12/09/2017 ??? Hospital-Diabetes insipidus 09/03/2017 Chronic ??? Hospital-Adrenal insufficiency 09/03/2017 ??? 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 Hospital-Seizure disorder 09/03/2017 ??? Insomnia 09/03/2017 ??? Blind 09/03/2017 ??? CVA (cerebral vascular accident) 09/03/2017 ??? Urinary incontinence 09/03/2017 ??? Hospital-Hypothyroidism 09/03/2017 Reason for Nutrition Intervention: Follow-up Diet Order: Regular Appetite: Good Food allergies: NKFA Ht Readings from Last 3 Encounters: 09/07/17 177.8 cm (5' 10) Wt Readings from Last 3 Encounters: 01/03/18 97.5 kg (215 lb) Body mass index is 30.85 kg/(m^2). Vitamins/Minerals: Vitamin D3 noted. Assessment: Patient seen for nutrition follow up. Spoke with SCREENER AND BLENDER who reported a good appetite that has been ongoing. No difficulty chewing or swallowing. No nausea or vomiting reported. SCREENER AND BLENDER requestedhealthy snacks at bedside: carrot sticks, celery stick, cheese and grapes & apples - will add to nourshments each day. SCREENER AND BLENDER had no questions or concerns at this time. Nutrition will continue to monitor and follow up weekly. Nutrition Plan: Continue current diet. Recommend Daily Multi Vitamins. Added snacks. Encourage good po intake. Monitor weight. Support and encouragement provided. Nutrition services to follow weekly thru hospital course unless consulted in the interim. ADAM Jones * Maldonado Salazar MD - 01/08/2018 12:11 PM EDT Hospital Medicine Attending Daily Progress Note Admit Date: 09/02/2017 Hospital Day 128 days Active Hospital Problems Diagnosis ??? S/P ORIF left acetabulum fracture 09/04/2017 Dr. Lance ??? Acute urinary retention ??? Diabetes insipidus ??? Adrenal insufficiency ??? Panhypopituitarism ??? Seizure disorder ??? Hypothyroidism Resolved Hospital Problems Diagnosis Date Resolved ??? Postoperative anemia due to acute blood loss 12/09/2017 [facility] Active Non-Hospital Problems Diagnosis ??? Insomnia ??? Blind ??? CVA (cerebral vascular accident) ??? Urinary incontinence Interval History / ROS: - awake, eating fruit while sitting up in bed - ambulated with staff, took several steps with walker yesterday Physical Exam Vitals Range last 24 hrs Temperature Temp: [36.5 ??C (97.7 ??F)-36.7 ??C (98.1 ??F)] Heart Rate Heart Rate: [108-109] Blood Pressure BP: (120-132)/(68-86) Respiratory Rate Resp: [20-22] SpO2 SpO2: [94 %-96 %] Intake/Output Summary (Last 24 hours) at 01/08/18 1211 Last data filed at 01/08/18 0800 Gross per 24 hour Intake 1200 ml Output 0 ml Net 1200 ml Patient Vitals for the past 168 hrs: Weight 01/03/18 2330 97.5 kg (215 lb) 01/03/18 1000 95.7 kg (210 lb 15.7 oz) Body mass index is 30.85 kg/(m^2). Estimated Creatinine Clearance: 144.4 mL/min (based on Cr of 0.9). CONSTITUTIONAL: awake, alert, participatory HEENT: Anticteric, MMM CHEST: RRR, no murmur LUNGS: CTAB ABDOMEN: soft, NT/ND EXTREMITIES: No edema SKIN: Warm/dry, no rash NEURO: pupils relatively fixed at ~4 mm diameter with no discernible constriction to light, horizontal nystagmus present, no facial asymmetry Studies reviewed in eDH. Remarkable for the following: LABS: No results for input(s): WBC, HGB, HCT, PLATELET in the last 168 hours. Recent Labs 01/08/18 0607 01/07/18 0701 01/06/18 2321 NA 149* 148* 148* K 3.7 Not Perf Not Perf CL 111* 112* 109* CO2 24 26 24 No results for input(s): AST, ALT, ALKPHOS, BILITOT, BILIDIR in the last 168 hours. No results for input(s): CALCIUM, PHOS in the last 168 hours. No results for input(s): PT, INR, PTT in the last 168 hours. No results for input(s): CK, TROPONINT in the last 168 hours. FSBG Trend No results for input(s): POCGLU in the last 72 hours. MICRO: No results for input(s): URINECULTURE in the last 720 hours. No results for input(s): GRAMSTAIN, BFCX, LOWERRESPCX, TISSUECX in the last 720 hours. No results for input(s): BLOODCX in the last 720 hours. ECG: No results for input(s): DIAGLINE, QTCCALC in the last 720 hours. VASCULAR: No results for input(s): VBTEXTRPT in the last 720 hours[address] IMAGING: CT facial 10/20 IMPRESSION Multiple dental caries. Dental restorations limits resolution somewhat but no definite molar fracture can be seen. Consider Panorex of the mandible. CT pelvis MSK 09/03 IMPRESSION 1. Comminuted left acetabular fracture involving the medial wall with posttraumatic protrusio deformity. 2. The flat contour of the left femoral head is consistent with fracture. I do not however see displaced fracture typical the shear injury is seen in the setting. It is possible this base of the represent a compression of the femoral surface. 3. Pelvic hematoma. XR Pelvis 11/18 Impression 1. Unchanged ORIF of left acetabular fracture. 2. The fracture lines are better characterized on CT exam. XR knee, L 11/17 Impression No fracture or dislocation No large knee effusion. 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 Advanced to WBAT BLE on 11/21 with assistive device at all times. ?? Agitated behavior issues may be environmental with baseline agitation and lack of normal routine. ??De-escalated opioids as not clear pain is driving agitation - will still treat as if L leg pain is part of the issue but try to spare opioids with tylenol and ibuprofen as well now that he is a few months out from acetabular fx repair. Also consolidating sedating meds closer to bedtime to try to achieve better sleep at night. Otherwise try to get him out and about and stimulated/interacting during the day with maintenance of his normal routine, as much as possible. Plan: # Left acetabular fracture: Improved -s/p operative repair on 09/04/2017 and orthopedics advanced to WBAT BLE (11/21) -continue scheduled tylenol -continue prn ibuprofen ?? # Toxic metabolic encephalopathy on baseline cognitive impairment with past CVA/hemorrhage from pituitary surgery: -encephalopathy has resolved - his ongoing waxing/waning periods of restlessness and yelling/moaning loudly alternating with periods of relative calm are normal per caregiver -continue quetiapine, trazodone, and melatonin at 8pm (his usual bed time per caregiver) -has additional quetiapine available prn for agitation -try to get him active and stimulated during the day -check bladder scan PRN / CIC PRN -cont bowel regimen -has not required physical restraints for several weeks ?? # 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 -decreased hydrocortisone from 20/10/10 to 20/10 per endocrine on 11/16 -increased synthroid to 200 mcg 11/23. ? -seizures managed with home zonisamide 200mg PO QHS per neurology.?? -treat DI as below ?? # DI, Hyponatremia and hypernatremia: sodium stable -outpt ddAVP dosing and fluid restriction are 0.05 mg tid and 3.2 L, respectively -Na elevated intermittently when not drinking enough - need to avail him of / allow him to take up to 3.2 liters of po fluid per day -ensure between 2-3 L of fluid intake daily -continue ddavp at 0.05 mg/0.05 mg/0.1 mg -appreciate Endocrine involvement # Fractured left lower molar: -Likely occurred with seizure, no evidence of acute infection. Extraction to occur in non-urgent manner pending availability, but per dentistry, not likely anytime soon. ?? # Urinary retention: appears to occur most often in AM - closely monitor for now # HTN - continue metoprolol ?? IV access: none Tubes/Drains: none DVT PPX: SCD Anticipated Disposition: SNF vs back to nursing home --> no longer being seen by PT/OT, he continues to take a few steps with assistance and using a walker but needs to be able to (at a minimum) walk to the bathroom and go up/down 13 stairs (which mimics the current living situation at his nursing home) Team Pager( Coverage 27/01): # [phone] PCP: NAKIA Cifuentes [phone] Attestation: IPI Certification I certify that I am a D-H credentialed attending provider with admitting privileges and that the patient meets or has met medical necessity to require an inpatient IPI level of care meeting a minimumof two midnights or is on the CMS inpatient only procedure list (status C) due to: the patient has met Inpatient IPI criteria and is awaiting rehabilitation or half-way facility placement withactive referrals in process Maldonado Salazar MD 01/08/2018 * Maldonado Salazar MD - 01/07/2018 11:18 AM EDT Hospital Medicine Attending Daily Progress Note Admit Date: 09/02/2017 Hospital Day 127 days Active Hospital Problems Diagnosis ??? S/P ORIF left acetabulum fracture 09/04/2017 Dr. Lance ??? Acute urinary retention ??? Diabetes insipidus ??? Adrenal insufficiency ??? Panhypopituitarism ??? Seizure disorder ??? Hypothyroidism Resolved Hospital Problems Diagnosis Date Resolved ??? Postoperative anemia due to acute blood loss 12/09/2017 [facility] Active Non-Hospital Problems Diagnosis ??? Insomnia ??? Blind ??? CVA (cerebral vascular accident) ??? Urinary incontinence Interval History / ROS: - sleeping this morning - up wheeling around unit yesterday with staff - ambulated with staff, took several steps with walker Physical Exam Vitals Range last 24 hrs Temperature Temp: [36.2 ??C (97.2 ??F)-36.7 ??C (98.1 ??F)] Heart Rate Heart Rate: [98-111] Blood Pressure BP: (113-133)/(63-79) Respiratory Rate Resp: [18-20] SpO2 SpO2: [96 %] Intake/Output Summary (Last 24 hours) at 01/07/18 1118 Last data filed at 01/07/18 0835 Gross per 24 hour Intake 2384 ml Output 1176 ml Net 1208 ml Patient Vitals for the past 168 hrs: Weight 01/03/18 2330 97.5 kg (215 lb) 01/03/18 1000 95.7 kg (210 lb 15.7 oz) Body mass index is 30.85 kg/(m^2). Estimated Creatinine Clearance: 144.4 mL/min (based on Cr of 0.9). CONSTITUTIONAL: sleeping in bed, woke up for exam HEENT: Anticteric, MMM CHEST: RRR, no murmur LUNGS: CTAB ABDOMEN: soft, NT/ND EXTREMITIES: No edema SKIN: Warm/dry, no rash NEURO: pupils relatively fixed at ~4 mm diameter with no discernible constriction to light, horizontal nystagmus present, no facial asymmetry Studies reviewed in eDH. Remarkable for the following: LABS: No results for input(s): WBC, HGB, HCT, PLATELET in the last 168 hours. Recent Labs 01/07/18 0701 01/06/18 2321 01/06/18 0647 NA 148* 148* 149* K Not Perf Not Perf Not Perf CL 112* 109* 110* CO2 26 24 23 No results for input(s): AST, ALT, ALKPHOS, BILITOT, BILIDIR in the last 168 hours. No results for input(s): CALCIUM, PHOS in the last 168 hours. No results for input(s): PT, INR, PTT in the last 168 hours. No results for input(s): CK, TROPONINT in the last 168 hours. FSBG Trend No results for input(s): POCGLU in the last 72 hours. MICRO: No results for input(s): URINECULTURE in the last 720 hours. No results for input(s): GRAMSTAIN, BFCX, LOWERRESPCX, TISSUECX in the last 720 hours. No results for input(s): BLOODCX in the last 720 hours. ECG: No results for input(s): DIAGLINE, QTCCALC in the last 720 hours. VASCULAR: No results for input(s): VBTEXTRPT in the last 720 hours. IMAGING: CT facial 10/20 IMPRESSION Multiple dental caries. Dental restorations limits resolution somewhat but no definite molar fracture can be seen. Consider Panorex of the mandible. CT pelvis MSK 09/03 IMPRESSION 1. Comminuted left acetabular fracture involving the medial wall with posttraumatic protrusio deformity. 2. The flat contour of the left femoral head is consistent with fracture. I do not however see displaced fracture typical the shear injury is seen in the setting. It is possible this base of the represent a compression of the femoral surface. 3. Pelvic hematoma. XR Pelvis 11/18 Impression 1. Unchanged ORIF of left acetabular fracture. 2. The fracture lines are better characterized on CT exam. XR knee, L 11/17 Impression No fracture or dislocation No large knee effusion. 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 Advanced to WBAT BLE on 11/21 with assistive device at all times. ?? Agitated behavior issues may be environmental with baseline agitation and lack of normal routine. ??De-escalated opioids as not clear pain is driving agitation - will still treat as if L leg pain is part of the issue but try to spare opioids with tylenol and ibuprofen as well now that he is a few months out from acetabular fx repair. Also consolidating sedating meds closer to bedtime to try to achieve better sleep at night. Otherwise try to get him out and about and stimulated/interacting during the day with maintenance of his normal routine, as much as possible. Plan: # Left acetabular fracture: Improved -s/p operative repair on 09/04/2017 and orthopedics advanced to WBAT BLE (11/21) -continue scheduled tylenol -continue prn ibuprofen ?? # Toxic metabolic encephalopathy on baseline cognitive impairment with past CVA/hemorrhage from pituitary surgery: -encephalopathy has resolved - his ongoing waxing/waning periods of restlessness and yelling/moaning loudly alternating with periods of relative calm are normal per caregiver -continue quetiapine, trazodone, and melatonin at 8pm (his usual bed time per caregiver) -has additional quetiapine available prn for agitation -try to get him active and stimulated during the day -check bladder scan PRN / CIC PRN -cont bowel regimen -has not required physical restraints for several weeks ?? # 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 -decreased hydrocortisone from 25/04/ to 20/10 per endocrine on 11/16 -increased synthroid to 200 mcg 11/23. ? -seizures managed with home zonisamide 200mg PO QHS per neurology.?? -treat DI as below ?? # DI, Hyponatremia and hypernatremia: sodium stable -outpt ddAVP dosing and fluid restriction are 0.05 mg tid and 3.2 L, respectively -Na elevated intermittently when not drinking enough - need to avail him of / allow him to take up to 3.2 liters of po fluid per day -ensure between 2-3 L of fluid intake daily -continue ddavp at 0.05 mg/0.05 mg/0.1 mg -appreciate Endocrine involvement # Fractured left lower molar: -Likely occurred with seizure, no evidence of acute infection. Extraction to occur in non-urgent manner pending availability, but per dentistry, not likely anytime soon. ?? # Urinary retention: appears to occur most often in AM - closely monitor for now # HTN - continue metoprolol ?? IV access: none Tubes/Drains: none DVT PPX: SCD Anticipated Disposition: SNF vs back to nursing home --> no longer being seen by PT/OT, he continues to take a few steps with assistance and using a walker but needs to be able to (at a minimum) walk to the bathroom and go up/down 13 stairs (which mimics the current living situation at his nursing home) Team Pager( Coverage 27/01): # [phone] PCP: NAKIA Cifuentes [phone] Attestation: IPI Certification I certify that I am a D-H credentialed attending provider with admitting privileges and that the patient meets or has met medical necessity to require an inpatient IPI level of care meeting a minimumof two midnights or is on the CMS inpatient only procedure list (status C) due to: the patient has met Inpatient IPI criteria and is awaiting rehabilitation or half-way facility placement withactive referrals in process Maldonado Salazar MD 01/07/2018 * Maldonado Salazar MD - 01/06/2018 12:43 PM EDT Hospital Medicine Attending Daily Progress Note Admit Date: 09/02/2017 Hospital Day 126 days Active Hospital Problems Diagnosis ??? S/P ORIF left acetabulum fracture 09/04/2017 Dr. Lance ??? Acute urinary retention ??? Diabetes insipidus ??? Adrenal insufficiency ??? Panhypopituitarism ??? Seizure disorder ??? Hypothyroidism Resolved Hospital Problems Diagnosis Date Resolved ??? Postoperative anemia due to acute blood loss 12/09/2017 [facility] Active Non-Hospital Problems Diagnosis ??? Insomnia ??? Blind ??? CVA (cerebral vascular accident) ??? Urinary incontinence Interval History / ROS: - sleeping this morning - up wheeling around unit yesterday with staff Physical Exam Vitals Range last 24 hrs Temperature Temp: [36.1 ??C (97 ??F)-36.5 ??C (97.7 ??F)] Heart Rate Heart Rate: [80-109] Blood Pressure BP: (127-134)/(74-86) Respiratory Rate Resp: [16-20] SpO2 SpO2: [96 %-97 %] Intake/Output Summary (Last 24 hours) at 01/06/18 1244 Last data filed at 01/06/18 1147 Gross per 24 hour Intake 2130 ml Output 1750 ml Net 380 ml Patient Vitals for the past 168 hrs: Weight 01/03/18 2330 97.5 kg (215 lb) 01/03/18 1000 95.7 kg (210 lb 15.7 oz) Body mass index is 30.85 kg/(m^2). Estimated Creatinine Clearance: 144.4 mL/min (based on Cr of 0.9). CONSTITUTIONAL: sleeping in bed, woke up for exam HEENT: Anticteric, MMM CHEST: RRR, no murmur LUNGS: CTAB ABDOMEN: soft, NT/ND EXTREMITIES: No edema SKIN: Warm/dry, no rash NEURO: pupils relatively fixed at ~4 mm diameter with no discernible constriction to light, horizontal nystagmus present, no facial asymmetry Studies reviewed in eDH. Remarkable for the following: LABS: No results for input(s): WBC, HGB, HCT, PLATELET in the last 168 hours. Recent Labs 01/06/18 0647 01/05/18 1748 01/05/18 0538 NA 149* 146* 151* K Not Perf 4.0 3.5 CL 110* 107 114* CO2 23 22 23 No results for input(s): AST, ALT, ALKPHOS, BILITOT, BILIDIR in the last 168 hours. No results for input(s): CALCIUM, PHOS in the last 168 hours. No results for input(s): PT, INR, PTT in the last 168 hours. No results for input(s): CK, TROPONINT in the last 168 hours. FSBG Trend No results for input(s): POCGLU in the last 72 hours. MICRO: No results for input(s): URINECULTURE in the last 720 hours. No results for input(s): GRAMSTAIN, BFCX, LOWERRESPCX, TISSUECX in the last 720 hours. No results for input(s): BLOODCX in the last 720 hours. ECG: No results for input(s): DIAGLINE, QTCCALC in the last 720 hours. VASCULAR: No results for input(s): VBTEXTRPT in the last 720 hours[address] IMAGING: CT facial 10/20 IMPRESSION Multiple dental caries. Dental restorations limits resolution somewhat but no definite molar fracture can be seen. Consider Panorex of the mandible. CT pelvis MSK 09/03 IMPRESSION 1. Comminuted left acetabular fracture involving the medial wall with posttraumatic protrusio deformity. 2. The flat contour of the left femoral head is consistent with fracture. I do not however see displaced fracture typical the shear injury is seen in the setting. It is possible this base of the represent a compression of the femoral surface. 3. Pelvic hematoma. XR Pelvis 11/18 Impression 1. Unchanged ORIF of left acetabular fracture. 2. The fracture lines are better characterized on CT exam. XR knee, L 11/17 Impression No fracture or dislocation No large knee effusion. 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 Advanced to WBAT BLE on 11/21 with assistive device at all times. ?? Agitated behavior issues may be environmental with baseline agitation and lack of normal routine. ??De-escalated opioids as not clear pain is driving agitation - will still treat as if L leg pain is part of the issue but try to spare opioids with tylenol and ibuprofen as well now that he is a few months out from acetabular fx repair. Also consolidating sedating meds closer to bedtime to try to achieve better sleep at night. Otherwise try to get him out and about and stimulated/interacting during the day, and if there is something he normally likes to do at nursing home, then try to avail him ofthat here. Caregiver indicates that this is normal behavior for him. Plan: # Left acetabular fracture: Improved -s/p operative repair on 09/04/2017 and orthopedics advanced to WBAT BLE (11/21) -continue scheduled tylenol -continue prn ibuprofen ?? # Toxic metabolic encephalopathy on baseline cognitive impairment with past CVA/hemorrhage from pituitary surgery: -encephalopathy has resolved - his ongoing waxing/waning periods of restlessness and yelling/moaning loudly alternating with periods of relative calm are normal per caregiver -continue quetiapine, trazodone, and melatonin at 8pm (his usual bed time per caregiver) -has additional quetiapine available prn agitation -try to get him active and stimulated during the day -check bladder scan PRN / CIC PRN -cont bowel regimen -has not required physical restraints for several weeks ?? # 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 -decreased hydrocortisone from 20/10/10 to 20/10 per endocrine on 11/16 -increased synthroid to 200 mcg 11/23. ? -seizures managed with home zonisamide 200mg PO QHS per neurology.?? -treat DI as below ?? # DI, Hyponatremia and hypernatremia: sodium stable -outpt ddAVP dosing and fluid restriction are 0.05 mg tid and 3.2 L, respectively -Na elevated intermittently when not drinking enough - need to avail him of / allow him to take the3.2+/- liters of po fluid per day -ensure between 2-3 L of fluid intake daily -01/06 ddavp dosin.05 mg/0.05 mg/0.1 mg -appreciate Endocrine involvement # Fractured left lower molar: -Likely occurred with seizure, no evidence of acute infection. Extraction to occur in non-urgent manner pending availability, but per dentistry, not likely anytime soon. ?? # Urinary retention: appears to occur most often in AM - closely monitor for now # HTN - continue metoprolol ?? IV access: none Tubes/Drains: none DVT PPX: SCD Anticipated Disposition: SNF vs back to nursing home pending progress with PT/OT --> need to discuss ongoing therapy involvement as he has not been seen in several days, at a minimum he needs to walk to bathroom and go up/down 13 stairs (which mimics the current living situation at his nursing home) Team Pager( Coverage 27/01): # [phone] PCP: NAKIA Cifuentes [phone] Attestation: IPI Certification I certify that I am a D-H credentialed attending provider with admitting privileges and that the patient meets or has met medical necessity to require an inpatient IPI level of care meeting a minimumof two midnights or is on the CMS inpatient only procedure list (status C) due to: the patient has met Inpatient IPI criteria and is awaiting rehabilitation or half-way facility placement withactive referrals in process Maldonado Salazar MD 01/06/2018 * Yadi Mccauley MD - 01/06/2018 9:57 AM EDT Images from the original note were not included. 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 New events since last time seen: Patient had a total of PO intake of 2.5 L and urine output of 1.7 L. As recommended he was given 0.1 mg of DDAVP last night and 0.5 mg twice earlier (total daily: 0.05 mg, 0.05 mg and 0.1 mg= 0.2 mg). Sodium was trended - it down trended from 151 to 146 and then back to 149 this morning. Patient was in bed at the time of my evaluation. No past medical history on file. Past Surgical History: Procedure Laterality Date ??? PRO OPEN CROSSCUTTER ROLLED GLASS FIX ACETABULAR FX Left 09/04/2017 @OPEN TREATMENT, ACETABULAR FX (WRVU 25.41) performed by Amy Lance MD at [facility] MAIN OR No family history on file. Current Medications: Scheduled Meds: ??? desmopressin 0.05 mg Oral TID ??? metoprolol succinate 50 mg Oral Daily ??? traZODone 50 mg Oral Nightly ??? acetaminophen 650 mg Oral TID ??? melatonin 9 mg Oral Nightly ??? QUEtiapine 250 mg Oral Nightly ??? levothyroxine 200 mcg Oral QAM ??? calcium carbonate 500 mg Oral Nightly ??? hydrocortisone 10 mg Oral Daily at Noon ??? senna-docusate 2 tablet Oral BID ??? testosterone 5 g Transdermal Nightly ??? methyl salicylate-menthol Topical (Top) BID ??? cholecalciferol (Vitamin D3) 1,000 Units Oral Daily ??? hydrocortisone 20 mg Oral QAM ??? pantoprazole 40 mg Oral QAM AC ??? zonisamide 200 mg Oral Nightly Continuous Infusions: PRN Meds:.ibuprofen, QUEtiapine, polyethylene glycol (MIRALAX)oral powder, simethicone, bisacodyl, naphazoline-pheniramine Allergies Allergen Reactions ??? Lopid [Gemfibrozil] Physical Exam: BP 134/84 Pulse 80 Temp 36.5 ??C (97.7 ??F) (Oral) Resp 16 Ht 177.8 cm (5' 10) Wt 97.5 kg (215 lb) SpO2 96% BMI 30.85 kg/m2 Patient was not examined today Labs: Ref. 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 Active issue includes hypernatremia related to DI. Continue encouraging PO intake (from 2.5 L to 3 L in 24 hours). Can again give an extra dose of DDAVP 0.05 mg tonight (he would get 0.05 mg morning,0.05 mg afternoon and 0.1 mg night time). Can continue trending Na every 12 hours. Plan was discussed with RN at the bedside. Thank you for allowing us participate in the care of this patient. Patient was discussed with Dr. Mccauley. Guerrero Tillman MD Endocrinology, Diabetes and Metabolism Fellow Pager #[phone] 01/06/2018 I have seen the patient and reviewed Dr. Guerrero Nick's above history and I agree with the details as written. The assessment and plan were formulated in discussion with me and I agree with them as documented. Yadi Mccauley MD, PhD, FACP, FACE * Maldonado Salazar MD - 01/05/2018 1:08 PM EDT [facility] Medicine Attending Daily Progress Note Admit Date: 09/02/2017 Hospital Day 125 days Active Hospital Problems Diagnosis ??? S/P ORIF left acetabulum fracture 09/04/2017 Dr. Lance ??? Acute urinary retention ??? Diabetes insipidus ??? Adrenal insufficiency ??? Panhypopituitarism ??? Seizure disorder ??? Hypothyroidism Resolved Hospital Problems Diagnosis Date Resolved ??? Postoperative anemia due to acute blood loss 12/09/2017 PMH Active Non-Hospital Problems Diagnosis ??? Insomnia ??? Blind ??? CVA (cerebral vascular accident) ??? Urinary incontinence Interval History / ROS: - up late last night, sleeping this morning - 3L fluid intake yesterday Physical Exam Vitals Range last 24 hrs Temperature Temp: [36.4 ??C (97.5 ??F)-36.6 ??C (97.9 ??F)] Heart Rate Heart Rate: [92-112] Blood Pressure BP: (103-128)/(78-82) Respiratory Rate Resp: [16-18] SpO2 SpO2: [96 %-98 %] Intake/Output Summary (Last 24 hours) at 01/05/18 1310 Last data filed at 01/05/18 0900 Gross per 24 hour Intake 2688 ml Output 1550 ml Net 1138 ml Patient Vitals for the past 168 hrs: Weight 01/03/18 2330 97.5 kg (215 lb) 01/03/18 1000 95.7 kg (210 lb 15.7 oz) Body mass index is 30.85 kg/(m^2). Estimated Creatinine Clearance: 144.4 mL/min (based on Cr of 0.9). CONSTITUTIONAL: sleeping in bed, woke up for exam HEENT: Anticteric, MMM CHEST: RRR, no murmur LUNGS: CTAB ABDOMEN: soft, NT/ND EXTREMITIES: No edema SKIN: Warm/dry, no rash NEURO: pupils relatively fixed at ~4 mm diameter with no discernible constriction to light, horizontal nystagmus present, no facial asymmetry, able to hold both hands/arms in front of body, able to lift right leg/flex hip in seated position, unable to lift left leg/flex hip due to pain Studies reviewed in eDH. Remarkable for the following: LABS: No results for input(s): WBC, HGB, HCT, PLATELET in the last 168 hours. Recent Labs 01/05/18 0538 01/04/18 0708 01/04/18 0314 NA 151* 146* 140 K 3.5 3.2* 3.6 CL 114* 102 103 CO2 23 25 23 No results for input(s): AST, ALT, ALKPHOS, BILITOT, BILIDIR in the last 168 hours. No results for input(s): CALCIUM, PHOS in the last 168 hours. No results for input(s): PT, INR, PTT in the last 168 hours. No results for input(s): CK, TROPONINT in the last 168 hours. FSBG Trend No results for input(s): POCGLU in the last 72 hours. MICRO: No results for input(s): URINECULTURE in the last 720 hours. No results for input(s): GRAMSTAIN, BFCX, LOWERRESPCX, TISSUECX in the last 720 hours. No results for input(s): BLOODCX in the last 720 hours. ECG: No results for input(s): DIAGLINE, QTCCALC in the last 720 hours. VASCULAR: No results for input(s): VBTEXTRPT in the last 720 hours[address] IMAGING: CT facial 10/20 IMPRESSION Multiple dental caries. Dental restorations limits resolution somewhat but no definite molar fracture can be seen. Consider Panorex of the mandible. CT pelvis MSK 09/03 IMPRESSION 1. Comminuted left acetabular fracture involving the medial wall with posttraumatic protrusio deformity. 2. The flat contour of the left femoral head is consistent with fracture. I do not however see displaced fracture typical the shear injury is seen in the setting. It is possible this base of the represent a compression of the femoral surface. 3. Pelvic hematoma. XR Pelvis 11/18 Impression 1. Unchanged ORIF of left acetabular fracture. 2. The fracture lines are better characterized on CT exam. XR knee, L 11/17 Impression No fracture or dislocation No large knee effusion. 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 Advanced to WBAT BLE on 11/21 with assistive device at all times. ?? Agitated behavior issues may be environmental with baseline agitation and lack of normal routine. ??De-escalated opioids as not clear pain is driving agitation - will still treat as if L leg pain is part of the issue but try to spare opioids with tylenol and ibuprofen as well now that he is a few months out from acetabular fx repair. Also consolidating sedating meds closer to bedtime to try to achieve better sleep at night. Otherwise try to get him out and about and stimulated/interacting during the day, and if there is something he normally likes to do at nursing home, then try to avail him ofthat here. Caregiver indicates that this is normal behavior for him. Plan: # Left acetabular fracture: Improved -s/p operative repair on 09/04/2017 and orthopedics advanced to WBAT BLE (11/21) -continue scheduled tylenol -continue prn ibuprofen ?? # Toxic metabolic encephalopathy on baseline cognitive impairment with past CVA/hemorrhage from pituitary surgery: -encephalopathy has resolved - his ongoing waxing/waning periods of restlessness and yelling/moaning loudly alternating with periods of relative calm are normal per caregiver -continue quetiapine, trazodone, and melatonin at 8pm (his usual bed time per caregiver) -has additional quetiapine available prn agitation -try to get him active and stimulated during the day -check bladder scan PRN / CIC PRN -cont bowel regimen -has not required physical restraints for several weeks ?? # 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 -decreased hydrocortisone from 20/10/10 to 20/10 per endocrine on 11/16 -increased synthroid to 200 mcg 11/23. ? -seizures managed with home zonisamide 200mg PO QHS per neurology.?? -treat DI as below ?? # DI, Hyponatremia and hypernatremia: sodium stable -outpt ddAVP dosing and fluid restriction are 0.05 mg tid and 3.2 L, respectively -Na elevated intermittently when not drinking enough - need to avail him of / allow him to take the3.2+/- liters of po fluid per day -continue outpatient regimen of 0.05 mg TID ddavp and between 2-3 L of fluid intake daily -Na elevated to 151 today, as discussed with endo at 16:00, will increase 21:00 dose to 0.1 mg if evening sodium check is >145 -appreciate Endocrine involvement # Fractured left lower molar: -Likely occurred with seizure, no evidence of acute infection. Extraction to occur in non-urgent manner pending availability, but per dentistry, not likely anytime soon. ?? # Urinary retention: appears to occur most often in AM - closely monitor for now # HTN - continue metoprolol ?? IV access: none Tubes/Drains: none DVT PPX: SCD Anticipated Disposition: SNF vs back to nursing home pending progress with PT/OT --> need to discuss ongoing therapy involvement as he has not been seen in several days, at a minimum he needs to walk to bathroom and go up/down 13 stairs (which mimics the current living situation at his nursing home) Team Pager( Coverage 27/01): # [phone] PCP: NAKIA Cifuentes [phone] Attestation: IPI Certification I certify that I am a D-H credentialed attending provider with admitting privileges and that the patient meets or has met medical necessity to require an inpatient IPI level of care meeting a minimumof two midnights or is on the CMS inpatient only procedure list (status C) due to: the patient has met Inpatient IPI criteria and is awaiting rehabilitation or half-way facility placement withactive referrals in process Maldonado Salazar MD 01/05/2018 * Yadi Mccauley MD - 01/05/2018 9:51 AM EDT Images from the original note were not included. 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 ?? New events since last time seen: Patient got DDAVP 0.05 mg TID yesterday. He had 3,050 mL PO intakeand about 1,550 mL urine output. Na up trended from 146 yesterday morning to 151 today. Patient was seen at the bedside he was awake and open eyes to verbal stimulus and following commands. No past medical history on file. Past Surgical History: Procedure Laterality Date ??? PRO OPEN CROSSCUTTER ROLLED GLASS FIX ACETABULAR FX Left 09/04/2017 @OPEN TREATMENT, ACETABULAR FX (WRVU 25.41) performed by Amy Lance MD at [facility] MAIN OR No family history on file. Current Medications: Scheduled Meds: ??? desmopressin 0.05 mg Oral TID ??? metoprolol succinate 50 mg Oral Daily ??? traZODone 50 mg Oral Nightly ??? acetaminophen 650 mg Oral TID ??? melatonin 9 mg Oral Nightly ??? QUEtiapine 250 mg Oral Nightly ??? levothyroxine 200 mcg Oral QAM ??? calcium carbonate 500 mg Oral Nightly ??? hydrocortisone 10 mg Oral Daily at Noon ??? senna-docusate 2 tablet Oral BID ??? testosterone 5 g Transdermal Nightly ??? methyl salicylate-menthol Topical (Top) BID ??? cholecalciferol (Vitamin D3) 1,000 Units Oral Daily ??? hydrocortisone 20 mg Oral QAM ??? pantoprazole 40 mg Oral QAM AC ??? zonisamide 200 mg Oral Nightly Continuous Infusions: PRN Meds:.ibuprofen, QUEtiapine, polyethylene glycol (MIRALAX)oral powder, simethicone, bisacodyl, naphazoline-pheniramine Allergies Allergen Reactions ??? Lopid [Gemfibrozil] Physical Exam: BP 104/78 (BP Location (NBP): Left leg, Patient Position: Lying) Pulse 92 Temp 36.4 ??C (97.5 ??F) (Axillary) Resp 16 Ht 177.8 cm (5' 10) Wt 97.5 kg (215 lb) SpO2 98% BMI 30.85 kg/m2 General appearance - uncooperative and following commands Neck - supple, no significant adenopathy Chest - clear to auscultation, no wheezes, rales or rhonchi, symmetric air entry Heart - normal rate, regular rhythm, normal S1, S2, no murmurs, rubs, clicks or gallops Abdomen - soft, nontender, nondistended, no masses or organomegaly Neurological - drowsy Skin - normal coloration and turgor, no rashes, no suspicious skin lesions noted Labs: Ref. 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 His sodium is above reference range. He has been getting DDAVP 0.05 mg TID as ordered and yesterdayuntil today the PO intake was 3.050 in 24 hours. We will continue to try correcting the hypernatremia by giving free water orally (goal PO intake in24 hours is about 3 L). If by tomorrow the Na has not corrected we will consider adding a 0.05 mg DDAVP extra dose. For example 0.05 mg/ 0.1 mg/ 0.05 mg daily. For now continue trending Na every 12 hours. PLAN WAS DISCUSSED WITH RN AT THE BEDSIDE. Thank you for allowing us participate in the care of this patient. Patient will be discussed with Dr. Mccauley. Guerrero Tillman MD Endocrinology, Diabetes and Metabolism Fellow Pager #[phone] 01/05/2018 Spoke with primary team. We recommend checking Na tonight. If Na is still >145, can increase thenight time DDAVP dose to 0.1 mg (from 0.05 mg). (DDAVP - 0.05 mg AM, 0.05 noon and 0.1 mg HS). I have seen the patient and reviewed Dr. Guerrero Nick's above history and I agree with the details as written. The assessment and plan were formulated in discussion with me and I agree with them as documented. Yadi Mccauley MD, PhD, FACP, FACE * Maldonado Salazar MD - 01/04/2018 2:02 PM EDT Hospital Medicine Attending Daily Progress Note Admit Date: 09/02/2017 Hospital Day 124 days Active Hospital Problems Diagnosis ??? S/P ORIF left acetabulum fracture 09/04/2017 Dr. Lance ??? Acute urinary retention ??? Diabetes insipidus ??? Adrenal insufficiency ??? Panhypopituitarism ??? Seizure disorder ??? Hypothyroidism Resolved Hospital Problems Diagnosis Date Resolved ??? Postoperative anemia due to acute blood loss 12/09/2017 PMH Active Non-Hospital Problems Diagnosis ??? Insomnia ??? Blind ??? CVA (cerebral vascular accident) ??? Urinary incontinence Interval History / ROS: - slept most of morning - missed morning dose of desmopressin, limited PO intake this morning Physical Exam Vitals Range last 24 hrs Temperature Temp: [36.6 ??C (97.9 ??F)-36.7 ??C (98.1 ??F)] Heart Rate Heart Rate: [104-120] Blood Pressure BP: (129-138)/(62-85) Respiratory Rate Resp: [20-25] SpO2 SpO2: [96 %-100 %] Intake/Output Summary (Last 24 hours) at 01/04/18 1402 Last data filed at 01/04/18 1000 Gross per 24 hour Intake 1550 ml Output 200 ml Net 1350 ml Patient Vitals for the past 168 hrs: Weight 01/03/18 2330 97.5 kg (215 lb) 01/03/18 1000 95.7 kg (210 lb 15.7 oz) Body mass index is 30.85 kg/(m^2). Estimated Creatinine Clearance: 144.4 mL/min (based on Cr of 0.9). CONSTITUTIONAL: calm, sitting up in bed HEENT: Anticteric, MMM CHEST: RRR, no murmur LUNGS: CTAB ABDOMEN: soft, NT/ND EXTREMITIES: No edema SKIN: Warm/dry, no rash NEURO: pupils relatively fixed at ~4 mm diameter with no discernible constriction to light, horizontal nystagmus present, no facial asymmetry, able to hold both hands/arms in front of body, able to lift right leg/flex hip in seated position, unable to lift left leg/flex hip due to pain Studies reviewed in eDH. Remarkable for the following: LABS: No results for input(s): WBC, HGB, HCT, PLATELET in the last 168 hours. Recent Labs 01/04/18 0708 01/04/18 0314 01/03/18 2248 NA 146* 140 142 K 3.2* 3.6 3.4* CL 102 103 102 CO2 25 23 25 No results for input(s): AST, ALT, ALKPHOS, BILITOT, BILIDIR in the last 168 hours. No results for input(s): CALCIUM, PHOS in the last 168 hours. No results for input(s): PT, INR, PTT in the last 168 hours. No results for input(s): CK, TROPONINT in the last 168 hours. FSBG Trend No results for input(s): POCGLU in the last 72 hours. MICRO: No results for input(s): URINECULTURE in the last 720 hours. No results for input(s): GRAMSTAIN, BFCX, LOWERRESPCX, TISSUECX in the last 720 hours. No results for input(s): BLOODCX in the last 720 hours. ECG: Recent Labs 12/05/17 1729 DIAGLINE Sinus tachycardia Nonspecific ST/T wave abnormality Abnormal ECG When compared with ECG of 04-SEP-2017 22:30, Rate slower Confirmed by MD Oh, Sukhi Walker ([id number]) on 12/06/2017 10:46:47 AM QTCCALC 452 VASCULAR: No results for input(s): VBTEXTRPT in the last 720 hours. IMAGING: CT facial 10/20 IMPRESSION Multiple dental caries. Dental restorations limits resolution somewhat but no definite molar fracture can be seen. Consider Panorex of the mandible. CT pelvis MSK 09/03 IMPRESSION 1. Comminuted left acetabular fracture involving the medial wall with posttraumatic protrusio deformity. 2. The flat contour of the left femoral head is consistent with fracture. I do not however see displaced fracture typical the shear injury is seen in the setting. It is possible this base of the represent a compression of the femoral surface. 3. Pelvic hematoma. XR Pelvis 11/18 Impression 1. Unchanged ORIF of left acetabular fracture. 2. The fracture lines are better characterized on CT exam. XR knee, L 11/17 Impression No fracture or dislocation No large knee effusion. 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 Advanced to WBAT BLE on 11/21 with assistive device at all times. ?? Agitated behavior issues may be environmental with baseline agitation and lack of normal routine. ??De-escalated opioids as not clear pain is driving agitation - will still treat as if L leg pain is part of the issue but try to spare opioids with tylenol and ibuprofen as well now that he is a few months out from acetabular fx repair. Also consolidating sedating meds closer to bedtime to try to achieve better sleep at night. Otherwise try to get him out and about and stimulated/interacting during the day, and if there is something he normally likes to do at nursing home, then try to avail him ofthat here. Caregiver indicates that this is normal behavior for him. Plan: # Left acetabular fracture: Improved -s/p operative repair on 09/04/2017 and orthopedics advanced to WBAT BLE (11/21) -continue scheduled tylenol -continue prn ibuprofen ?? # Toxic metabolic encephalopathy on baseline cognitive impairment with past CVA/hemorrhage from pituitary surgery: -encephalopathy has resolved - his ongoing waxing/waning periods of restlessness and yelling/moaning loudly alternating with periods of relative calm are normal per caregiver -continue quetiapine, trazodone, and melatonin at 8pm (his usual bed time per caregiver) -has additional quetiapine available prn agitation -try to get him active and stimulated during the day -check bladder scan PRN / CIC PRN -cont bowel regimen -has not required physical restraints for several weeks ?? # 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 -decreased hydrocortisone from 25/04/10 to 25/04 per endocrine on 11/16 -increased synthroid to 200 mcg 11/23. ? -seizures managed with home zonisamide 200mg PO QHS per neurology.?? -treat DI as below ?? # DI, Hyponatremia and hypernatremia: sodium stable -outpt ddAVP dosing and fluid restriction are 0.05 mg tid and 3.2 L, respectively -Na elevated intermittently when not drink enough - need to avail him of / allow him to take the 3.2+/- liters of po fluid per day -continue outpatient regimen of 0.05 mg TID ddavp and between 2-3 L of fluid intake daily -appreciate Endocrine involvement # Fractured left lower molar: -Likely occurred with seizure, no evidence of acute infection. Extraction to occur in non-urgent manner pending availability, but per dentistry, not likely anytime soon. ?? # Urinary retention: appears to occur most often in AM - closely monitor for now # HTN - continue metoprolol ?? IV access: none Tubes/Drains: none DVT PPX: SCD Anticipated Disposition: SNF vs back to nursing home pending progress with PT/OT Team Pager( Coverage 27/01): # [phone] PCP: NAKIA Cifuentes [phone] Attestation: IPI Certification I certify that I am a D-H credentialed attending provider with admitting privileges and that the patient meets or has met medical necessity to require an inpatient IPI level of care meeting a minimumof two midnights or is on the CMS inpatient only procedure list (status C) due to: the patient has met Inpatient IPI criteria and is awaiting rehabilitation or half-way facility placement withactive referrals in process Maldonado Salazar MD 01/04/2018 * Lindsey Walsh, - 01/04/2018 9:54 AM EDT Images from the original note were not included. ENDOCRINOLOGY FOLLOW UP INPATIENT NOTE [facility] Name: Miguel Angel Mason Date of Consultation: 01/04/2018 History of Present Illness: Miguel Angel Mason??is a 27 y.o.male??with PMH significant for panhypopituitarism from craniopharyngioma s/p transphenoidal surgery complicated by intracranial bleed with bilateral thalamic infarcts with neurologic impairment and total vision impairment, resulting adrenal ins ufficiency, hypothyroidism, DI and hypogonadism who was admitted 09/02/2017 after presenting with left acetabular fracture, s/p operative repair. Interim events: DDAVP restarted yesterday evening. Sodium down this morning just above normal range. Past Surgical History: Procedure Laterality Date ??? PRO OPEN CROSSCUTTER ROLLED GLASS FIX ACETABULAR FX Left 09/04/2017 @OPEN TREATMENT, ACETABULAR FX (WRVU 25.41) performed by Amy Lance MD at [facility] MAIN OR Allergies Allergen Reactions ??? Lopid [Gemfibrozil] Current Medications: Scheduled Meds: ??? desmopressin 0.05 mg Oral TID ??? metoprolol succinate 50 mg Oral Daily ??? traZODone 50 mg Oral Nightly ??? acetaminophen 650 mg Oral TID ??? melatonin 9 mg Oral Nightly ??? QUEtiapine 250 mg Oral Nightly ??? levothyroxine 200 mcg Oral QAM ??? calcium carbonate 500 mg Oral Nightly ??? hydrocortisone 10 mg Oral Daily at Noon ??? senna-docusate 2 tablet Oral BID ??? testosterone 5 g Transdermal Nightly ??? methyl salicylate-menthol Topical (Top) BID ??? cholecalciferol (Vitamin D3) 1,000 Units Oral Daily ??? hydrocortisone 20 mg Oral QAM ??? pantoprazole 40 mg Oral QAM AC ??? 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 On 12/29 there were no missed doses of DDAVP. The morning of 12/30 his sodium was slightly high at 147. That afternoon he missed his 1pm dose of DDAVP 0.05 mg (reported refused by patient or family in nursing notes). Repeat sodium checks were ordered on 12/31 and 01/01 but were not drawn. Missed dose ofDDAVP 0.05 mg at noon on 12/31, reason for missing reported as patient or family refused in nursing notes. He got all doses of DDAVP 0.05 mg TID on 01/01. Repeat sodium 01/02 peaked at 155. The patientsoral intake was also reviewed which revealed little PO intake recorded on 12/30 and approximately 2Lon 12/31 and 01/01. His dose of DDAVP was increased to 0.1mg by the primary team. He got several doses of DDAVP 0.1 mg. Sodium dropped quickly to 139. Because of this overdosing of DDAVP and rapid dropin sodium, DDAVP was then held until sodium was proven to be at a safe level. Sodium draw yesterdaynight revealed a sodium of 142 and his typical DDAVP pattern of 0.05 mg TID with 3.2L fluid restriction was recommended to environmental remediation consultant provider overnight. We continue to recommend this regimen which has been proven effective previously. Plan: --- Continue DDAVP 0.05 mg TID --- Resume 3.2L fluid restriction --- Daily sodium checks --- Please contact endocrinology with any change in DDAVP dose Thank you for allowing us participate in the care of this patient. Patient was discussed with the attending provider, Dr. Page. Lindsey Walsh, DO Endocrinology, Diabetes and Metabolism Fellow 01/04/2018 9:55 AM Associated attestation - Genevieve Page MD - 01/04/2018 6:09 PM EDT I saw this patient with Dr. Walsh. I reviewed the santos portions of the history and physical exam, and reviewed pertinent lab data. I was involved in all medical decision making and agree with this plan. This patient's fluid status and serum sodium levels are very sensitive to the slightest changes in his free water intake and swing wildly with even small changes to his DDAVP(desmopressin) dosing. Due to his disabilities, monitoring his urine output is difficult, if not impossible, and blood draws as well as medication administration can at times be very challenging. Therefore, are two very important things to emphasize in regards to the care of his diabetes insipidus: 1) Please take great care to not miss any scheduled DDAVP (desmopressin) doses. 2) Please do not change the DDAVP (desmopressin) dosing without first discussing the change with the on-call Endocrinology service. GENEVIEVE PAGE MD Engagement Engineerintensive care specialist Section of Endocrinology [facility] [place] * Maldonado Salazar MD - 01/03/2018 12:31 PM EDT Hospital Medicine Attending Daily Progress Note Admit Date: 09/02/2017 Hospital Day 123 days Active Hospital Problems Diagnosis ??? S/P ORIF left acetabulum fracture 09/04/2017 Dr. Lance ??? Acute urinary retention ??? Diabetes insipidus ??? Adrenal insufficiency ??? Panhypopituitarism ??? Seizure disorder ??? Hypothyroidism Resolved Hospital Problems Diagnosis Date Resolved ??? Postoperative anemia due to acute blood loss 12/09/2017 PMH Active Non-Hospital Problems Diagnosis ??? Insomnia ??? Blind ??? CVA (cerebral vascular accident) ??? Urinary incontinence Interval History / ROS: -able to stand up and walk into shower today, went for wheelchair ride outside, agitated when back in room -received 0.1 mg DDAVP dose in AM, switched to 0.05 mg for noon dose -denies pain Physical Exam Vitals Range last 24 hrs Temperature Temp: [36.6 ??C (97.9 ??F)] Heart Rate Heart Rate: -- Blood Pressure BP: (131-132)/(65-84) Respiratory Rate Resp: [18-20] SpO2 SpO2: [94 %-97 %] Intake/Output Summary (Last 24 hours) at 01/03/18 1232 Last data filed at 01/03/18 1118 Gross per 24 hour Intake 3180 ml Output 1650 ml Net 1530 ml Patient Vitals for the past 168 hrs: Weight 01/03/18 1000 95.7 kg (210 lb 15.7 oz) Body mass index is 30.27 kg/(m^2). Estimated Creatinine Clearance: 143.2 mL/min (based on Cr of 0.9). CONSTITUTIONAL: restless and agitated today HEENT: Anticteric, MMM CHEST: RRR, no murmur LUNGS: CTAB ABDOMEN: soft, NT/ND EXTREMITIES: No edema SKIN: Warm/dry, no rash NEURO: pupils relatively fixed at ~4 mm diameter with no discernible constriction to light, horizontal nystagmus present, no facial asymmetry, able to hold both hands/arms in front of body, able to lift right leg/flex hip in seated position, unable to lift left leg/flex hip due to pain Studies reviewed in eDH. Remarkable for the following: LABS: No results for input(s): WBC, HGB, HCT, PLATELET in the last 168 hours. Recent Labs 01/03/18 0838 01/02/18 0855 12/30/17 0824 12/28/17 0004 NA 145 155* 147* < > 146* K 3.7 3.8 3.9 < > 3.6 CL 105 113* 108* < > 104 CO2 23 27 25 < > 25 BUN -- -- -- -- 22* CREATININE -- -- -- -- 0.90 < > = values in this interval not displayed. No results for input(s): AST, ALT, ALKPHOS, BILITOT, BILIDIR in the last 168 hours. Recent Labs 12/28/17 0004 CALCIUM 9.4 No results for input(s): PT, INR, PTT in the last 168 hours. No results for input(s): CK, TROPONINT in the last 168 hours. FSBG Trend No results for input(s): POCGLU in the last 72 hours. MICRO: No results for input(s): URINECULTURE in the last 720 hours. No results for input(s): GRAMSTAIN, BFCX, LOWERRESPCX, TISSUECX in the last 720 hours. No results for input(s): BLOODCX in the last 720 hours. ECG: Recent Labs 12/05/17 1729 DIAGLINE Sinus tachycardia Nonspecific ST/T wave abnormality Abnormal ECG When compared with ECG of 04-SEP-2017 22:30, Rate slower Confirmed by MD Oh, Sukhi Walker ([id number]) on 12/06/2017 10:46:47 AM QTCCALC 452 VASCULAR: No results for input(s): VBTEXTRPT in the last 720 hours. IMAGING: CT facial 10/20 IMPRESSION Multiple dental caries. Dental restorations limits resolution somewhat but no definite molar fracture can be seen. Consider Panorex of the mandible. CT pelvis MSK 09/03 IMPRESSION 1. Comminuted left acetabular fracture involving the medial wall with posttraumatic protrusio deformity. 2. The flat contour of the left femoral head is consistent with fracture. I do not however see displaced fracture typical the shear injury is seen in the setting. It is possible this base of the represent a compression of the femoral surface. 3. Pelvic hematoma. XR Pelvis 11/18 Impression 1. Unchanged ORIF of left acetabular fracture. 2. The fracture lines are better characterized on CT exam. XR knee, L 11/17 Impression No fracture or dislocation No large knee effusion. 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 Advanced to WBAT BLE on 11/21 with assistive device at all times. ?? Agitated behavior issues may be environmental with baseline agitation and lack of normal routine. ??De-escalated opioids as not clear pain is driving agitation - will still treat as if L leg pain is part of the issue but try to spare opioids with tylenol and ibuprofen as well now that he is a few months out from acetabular fx repair. Also consolidating sedating meds closer to bedtime to try to achieve better sleep at night. Otherwise try to get him out and about and stimulated/interacting during the day, and if there is something he normally likes to do at nursing home, then try to avail him ofthat here. Caregiver indicates that this is normal behavior for him. Plan: # Left acetabular fracture: Improved -s/p operative repair on 09/04/2017 and orthopedics advanced to WBAT BLE (11/21) -continue scheduled tylenol -continue prn ibuprofen ?? # Toxic metabolic encephalopathy on baseline cognitive impairment with past CVA/hemorrhage from pituitary surgery: -encephalopathy seems like it has resolved - his ongoing waxing/waning periods of restlessness and yelling/moaning loudly alternating with periods of relative calm are apparently normal per caregiver -continue quetiapine, trazodone, and melatonin at 8pm (his usual bed time per caregiver) -has additional quetiapine available prn agitation -try to get him active and stimulated during the day -check bladder scan PRN / CIC PRN -cont bowel regimen -out of net bed now ?? # 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 -decreased hydrocortisone from 20/10/10 to 20/10 per endocrine on 11/16 -increased synthroid to 200 mcg 11/23. ? -seizures managed with home zonisamide 200mg PO QHS per neurology.?? -treat DI as below ?? # DI, Hyponatremia and hypernatremia: sodium stable -outpt ddAVP dosing and fluid restriction are 0.05 mg tid and 3.2 L, respectively -Na elevated intermittently when not drink enough - need to avail him of / allow him to take the 3.2+/- liters of po fluid per day -Na up to 155 on 01/02 and decreased to 145 on 01/03, ddAVP decreased from 0.1 mg to 0.05 mg -f/u repeat 'lytes at 14:00 -continue to emphasize at least 2.5 L fluid intake daily -appreciate Endocrine following # Fractured left lower molar: -Likely occurred with seizure, no evidence of acute infection. Extraction to occur in non-urgent manner pending availability, but per dentistry, not likely anytime soon. ?? # Urinary retention: appears to occur most often in AM - closely monitor for now # HTN - continue metoprolol ?? IV access: none Tubes/Drains: none DVT PPX: SCD Anticipated Disposition: SNF vs back to nursing home pending progress with PT/OT Team Pager( Coverage 27/01): # [phone] PCP: NAKIA Cifuentes [phone] Attestation: IPI Certification I certify that I am a D-H credentialed attending provider with admitting privileges and that the patient meets or has met medical necessity to require an inpatient IPI level of care meeting a minimumof two midnights or is on the CMS inpatient only procedure list (status C) due to: the patient has met Inpatient IPI criteria and is awaiting rehabilitation or half-way facility placement withactive referrals in process Maldonado Salazar MD 01/03/2018 Addendum 01/03/18: Sodium recheck at ~13:30 was 139 (decreased from 145 at 08:00 and 155 on 01/02 at 08:00). Mr. Masonreceived desmopressin 0.1 mg at 12:00 and 18:00 on 01/02 and 08:00 on 01/03. It was switched to 0.05 mg at 12:00 on 01/03. No appreciable change in mental status this afternoon (patient up taking a few steps with caregivers, wheeling around in wheelchair, responding in similar fashion to being read to) although difficult to assess given baseline cognitive impairment. Discussed sodium shifts and desmopressin dosing with endocrinology. Plan to hold evening desmopressin dose (order discontinued for now) and recheck sodium level at 17:00 and ~00:00. If greater than 130 will additionally hold 01/03 AMdose of desmopressin. If less than 130 will need to discuss with endocrine the need for starting hypertonic saline. I am in agreement with their assessment that hypertonic saline is not necessary fornow, absent change in mental status or further precipitous drop in sodium level. Care-plan suggestions (please include in patient's chart and treatment-team sticky note): Minimum Daily Daily Schedule - wake up by 8 a.m. - explain plan of the day and give Miguel Angel time to process - take shower - have breakfast - wheelchair vs walk around unit at least once (Miguel Angel can do this himself) - ensure he is put on toilet at least every 2-3 hours - lunch - wheelchair walk +/- sit outside on patient patio - dinner Additional Suggestions if Agitated/Upset - if yelling, attempt to feed crushed ice - if yelling and given food, please try fruit or sugar-free gum or other healthy foods first - toss beach ball with Miguel Angel - pillow fights (lightly toss pillows back and forth to Miguel Angel) - do pull-ups in bed with trapeze bar - Miguel Angel often says no to any suggestion or question, however, when given time to process what he is told or asked to do, he will often acquiesce * Fran Gilliam MD - 01/02/2018 12:00 PM EDT Hospital Medicine Attending Daily Progress Note Admit Date: 09/02/2017 Hospital Day 123 days Active Hospital Problems Diagnosis ??? S/P ORIF left acetabulum fracture 09/04/2017 Dr. Lance ??? Acute urinary retention ??? Diabetes insipidus ??? Adrenal insufficiency ??? Panhypopituitarism ??? Seizure disorder ??? Hypothyroidism Resolved Hospital Problems Diagnosis Date Resolved ??? Postoperative anemia due to acute blood loss 12/09/2017 PMH Active Non-Hospital Problems Diagnosis ??? Insomnia ??? Blind ??? CVA (cerebral vascular accident) ??? Urinary incontinence Interval History / ROS: -more restless, agitated over the past day -Na up to 155 today - caregiver not surprised because when his sodium's off, he's off -denies pain Physical Exam Vitals Range last 24 hrs Temperature Temp: [36.6 ??C (97.9 ??F)] Heart Rate Heart Rate: -- Blood Pressure BP: (131-132)/(65-84) Respiratory Rate Resp: [18-20] SpO2 SpO2: [94 %-97 %] Intake/Output Summary (Last 24 hours) at 01/03/18 1119 Last data filed at 01/03/18 1118 Gross per 24 hour Intake 3420 ml Output 1350 ml Net 2070 ml Patient Vitals for the past 168 hrs: Weight 01/03/18 1000 95.7 kg (210 lb 15.7 oz) Body mass index is 30.27 kg/(m^2). Estimated Creatinine Clearance: 143.2 mL/min (based on Cr of 0.9). CONSTITUTIONAL: restless and agitated today HEENT: Anticteric, MMM CHEST: RRR, no murmur LUNGS: CTAB ABDOMEN: soft, NT/ND EXTREMITIES: No edema SKIN: Warm/dry, no rash Studies reviewed in eDH. Remarkable for the following: LABS: No results for input(s): WBC, HGB, HCT, PLATELET in the last 168 hours. Recent Labs 01/03/18 0838 01/02/18 0855 12/30/17 0824 12/28/17 0004 NA 145 155* 147* < > 146* K 3.7 3.8 3.9 < > 3.6 CL 105 113* 108* < > 104 CO2 23 27 25 < > 25 BUN -- -- -- -- 22* CREATININE -- -- -- -- 0.90 < > = values in this interval not displayed. No results for input(s): AST, ALT, ALKPHOS, BILITOT, BILIDIR in the last 168 hours. Recent Labs 12/28/17 0004 CALCIUM 9.4 No results for input(s): PT, INR, PTT in the last 168 hours. No results for input(s): CK, TROPONINT in the last 168 hours. FSBG Trend No results for input(s): POCGLU in the last 72 hours. MICRO: No results for input(s): URINECULTURE in the last 720 hours. No results for input(s): GRAMSTAIN, BFCX, LOWERRESPCX, TISSUECX in the last 720 hours. No results for input(s): BLOODCX in the last 720 hours. ECG: Recent Labs 12/05/17 1729 DIAGLINE Sinus tachycardia Nonspecific ST/T wave abnormality Abnormal ECG When compared with ECG of 04-SEP-2017 22:30, Rate slower Confirmed by MD Oh, Sukhi Walker ([id number]) on 12/06/2017 10:46:47 AM QTCCALC 452 VASCULAR: No results for input(s): VBTEXTRPT in the last 720 hours. IMAGING: CT facial 10/20 IMPRESSION Multiple dental caries. Dental restorations limits resolution somewhat but no definite molar fracture can be seen. Consider Panorex of the mandible. CT pelvis MSK 09/03 IMPRESSION 1. Comminuted left acetabular fracture involving the medial wall with posttraumatic protrusio deformity. 2. The flat contour of the left femoral head is consistent with fracture. I do not however see displaced fracture typical the shear injury is seen in the setting. It is possible this base of the represent a compression of the femoral surface. 3. Pelvic hematoma. XR Pelvis 11/18 Impression 1. Unchanged ORIF of left acetabular fracture. 2. The fracture lines are better characterized on CT exam. XR knee, L 11/17 Impression No fracture or dislocation No large knee effusion. 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 11/21 advanced to WBAT BLE with assistive device at all times. ?? Agitated behavior issues may be environmental with baseline agitation and lack of normal routine. ??De-escalated opioids as not clear pain is driving agitation - will still treat as if L leg pain is part of the issue but try to spare opioids with tylenol and ibuprofen as well now that he is a few months out from acetabular fx repair. Also consolidating sedating meds closer to bedtime to try to achieve better sleep at night. Otherwise try to get him out and about and stimulated/interacting during the day, and if there is something he normally likes to do at nursing home, then try to avail him ofthat here. Caregiver indicates that this is normal behavior for him. Plan: # Left acetabular fracture: Improved -s/p operative repair on 09/04/2017 and orthopedics advanced to WBAT BLE (11/21) -continue scheduled tylenol -continue prn ibuprofen ?? # Toxic metabolic encephalopathy on baseline cognitive impairment with past CVA/hemorrhage from pituitary surgery: -encephalopathy seems like it has resolved - his ongoing waxing/waning periods of restlessness and yelling/moaning loudly alternating with periods of relative calm are apparently normal per caregiver -continue quetiapine, trazodone, and melatonin at 8pm (his usual bed time per caregiver) -has additional quetiapine available prn agitation -try to get him active and stimulated during the day -check bladder scan PRN / CIC PRN -cont bowel regimen -out of net bed now ?? # 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 -decreased hydrocortisone from 20/10/10 to 20/10 per endocrine on 11/16 -increased synthroid to 200 mcg 11/23. ? -seizures managed with home zonisamide 200mg PO QHS per neurology.?? -treat DI as below ?? # DI, Hyponatremia and hypernatremia: sodium stable -outpt ddAVP dosing and fluid restriction are 0.05 mg tid and 3.2 L, respectively - continue these and monitor Na level periodically -Na elevated intermittently when not drink enough - need to avail him of / allow him to take the 3.2+/- liters of po fluid per day -Na up to 155 today - will increase ddAVP to 0.1 mg for today, decrease back to 0.05 in the morningif Na down, also discussed with nursing the importance of allowing him to have about 3 L of fluid per day -appreciate Endocrine following # Fractured left lower molar: -Likely occurred with seizure, no evidence of acute infection. Extraction to occur in non-urgent manner pending availability, but per dentistry, not likely anytime soon. ?? # Urinary retention: But appears to only be in the morning - closely monitor for now # HTN - continue metoprolol ?? IV access: none Tubes/Drains: none DVT PPX: SCD Anticipated Disposition: SNF vs back to nursing home pending progress with PT/OT Team Pager( Coverage 27/01): # [phone] PCP: NAKIA Cifuentes [phone] Attestation: IPI Certification I certify that I am a D-H credentialed attending provider with admitting privileges and that the patient meets or has met medical necessity to require an inpatient IPI level of care meeting a minimumof two midnights or is on the [facility] inpatient only procedure list (status C) due to: the patient has met Inpatient IPI criteria and is awaiting rehabilitation or half-way facility placement withactive referrals in process FRAN GILLIAM MD 01/03/2018 * Lindsey Walsh, DO - 01/02/2018 11:00 AM EDT Images from the original note were not included. 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 Interim events: Patient had a peak sodium level on 12/26/2017 at 155. At that time it was recommended by the endocrinology team to increase his PO fluids to 2.5-3L daily. This less aggressive measureswere successful as his sodium trended down to 142 in the three days. His sodium again starting climbing on 12/30/2017 to 147. Repeat sodium levels ordered but not drawn. Repeat sodium level today 155. Past Surgical History: Procedure Laterality Date ??? PRO OPEN CROSSCUTTER ROLLED GLASS FIX ACETABULAR FX Left 09/04/2017 @OPEN TREATMENT, ACETABULAR FX (WRVU 25.41) performed by Amy Lance MD at [facility] MAIN OR Allergies Allergen Reactions ??? Lopid [Gemfibrozil] Current Medications: Scheduled Meds: ??? desmopressin 0.1 mg Oral TID ??? metoprolol succinate 50 mg Oral Daily ??? traZODone 50 mg Oral Nightly ??? acetaminophen 650 mg Oral TID ??? melatonin 9 mg Oral Nightly ??? QUEtiapine 250 mg Oral Nightly ??? levothyroxine 200 mcg Oral QAM ??? calcium carbonate 500 mg Oral Nightly ??? hydrocortisone 10 mg Oral Daily at Noon ??? senna-docusate 2 tablet Oral BID ??? testosterone 5 g Transdermal Nightly ??? methyl salicylate-menthol Topical (Top) BID ??? cholecalciferol (Vitamin D3) 1,000 Units Oral Daily ??? hydrocortisone 20 mg Oral QAM ??? pantoprazole 40 mg Oral QAM AC ??? 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 Sodium level rising over past three days. On 12/29 there were no missed doses of DDAVP. The morning of 12/30 his sodium was slightly high at 147. That afternoon he missed his 1pm dose of DDAVP 0.05 mg (reported refused by patient or family in nursing notes). Repeat sodium checks were ordered on 12/31 and 01/01 but were not drawn. Reason for lack of blood draw is unknown as the orders were placed by the primary team. The patient also missed a dose DDAVP 0.05 mg at noon on 12/31, reason for missing reported as patient or family refused in nursing notes. He got all doses of DDAVP 0.05 mg TID on 01/01.Repeat sodium this morning was peaked at 155. The patients oral intake was also reviewed which revealed little PO intake recorded on 12/30 and approximately 2L on 12/31 and 01/01. His fluid restriction is 3.2L total during this time. His current hypernatremia is likely a result of missing two doses ofDDAVP and inadequate oral hydration. Plan: --- Recommend suggest to continue DDAVP 0.05 mg TID, without any missed doses as best as possible --- Recommend liberalize fluid intake to 2.5-3L daily and have nurse/bedside aids encourage this --- Recommend increase sodium checks to every 12 hour until sodium back into acceptable range Thank you for allowing us participate in the care of this patient. Patient was discussed with the attending provider, Dr. Kaylee Walsh, Endocrinology, Diabetes and Metabolism Fellow 01/02/2018 11:00 AM Associated attestation - Genevieve Page MD - 01/02/2018 5:16 PM EDT I saw this patient with Dr. Walsh. I reviewed the santos portions of the history and physical exam, and reviewed pertinent lab data. I answered all patient questions. I was involved in all medical decision making and agree with this plan. GENEVIEVE PAGE MD Engagement Engineerintensive care specialist Section of Endocrinology [facility] [place] * Fran Gilliam MD - 01/01/2018 4:20 PM EDT Hospital Medicine Attending Daily Progress Note Admit Date: 09/02/2017 Hospital Day 121 days Active Hospital Problems Diagnosis ??? S/P ORIF left acetabulum fracture 09/04/2017 Dr. Lance ??? Acute urinary retention ??? Diabetes insipidus ??? Adrenal insufficiency ??? Panhypopituitarism ??? Seizure disorder ??? Hypothyroidism Resolved Hospital Problems Diagnosis Date Resolved ??? Postoperative anemia due to acute blood loss 12/09/2017 PMH Active Non-Hospital Problems Diagnosis ??? Insomnia ??? Blind ??? CVA (cerebral vascular accident) ??? Urinary incontinence Interval History / ROS: -had a good night -relatively restless and agitated today -denies pain or any other complaints -doing awesome, why? Physical Exam Vitals Range last 24 hrs Temperature Temp: [36.8 ??C (98.2 ??F)] Heart Rate Heart Rate: [82-94] Blood Pressure BP: (119-124)/(79-82) Respiratory Rate Resp: [15-19] SpO2 SpO2: [95 %-97 %] Intake/Output Summary (Last 24 hours) at 01/01/18 1621 Last data filed at 01/01/18 0800 Gross per 24 hour Intake 940 ml Output 850 ml Net 90 ml No data found. Body mass index is 29.2 kg/(m^2). Estimated Creatinine Clearance: 140.7 mL/min (based on Cr of 0.9). CONSTITUTIONAL: appears comfortable, calm HEENT: Anticteric, MMM CHEST: RRR, no murmur LUNGS: CTAB ABDOMEN: soft, NT/ND EXTREMITIES: No edema SKIN: Warm/dry, no rash Studies reviewed in eDH. Remarkable for the following: LABS: No results for input(s): WBC, HGB, HCT, PLATELET in the last 168 hours. Recent Labs 12/30/17 0824 12/29/17 0357 12/28/17202612/28/17 0004 NA 147* 142 145 < > 146* K 3.9 4.1 4.2 < > 3.6 CL 108* 103 104 < > 104 CO2 25 22 24 < > 25 BUN -- -- -- -- 22* CREATININE -- -- -- -- 0.90 < > = values in this interval not displayed. No results for input(s): AST, ALT, ALKPHOS, BILITOT, BILIDIR in the last 168 hours. Recent Labs 12/28/17 0004 CALCIUM 9.4 No results for input(s): PT, INR, PTT in the last 168 hours. No results for input(s): CK, TROPONINT in the last 168 hours. FSBG Trend No results for input(s): POCGLU in the last 72 hours. MICRO: No results for input(s): URINECULTURE in the last 720 hours. No results for input(s): GRAMSTAIN, BFCX, LOWERRESPCX, TISSUECX in the last 720 hours. No results for input(s): BLOODCX in the last 720 hours. ECG: Recent Labs 12/05/17 1729 DIAGLINE Sinus tachycardia Nonspecific ST/T wave abnormality Abnormal ECG When compared with ECG of 04-SEP-2017 22:30, Rate slower Confirmed by MD Oh, Sukhi Walker ([id number]) on 12/06/2017 10:46:47 AM QTCCALC 452 VASCULAR: No results for input(s): VBTEXTRPT in the last 720 hours. IMAGING: CT facial 10/20 IMPRESSION Multiple dental caries. Dental restorations limits resolution somewhat but no definite molar fracture can be seen. Consider Panorex of the mandible. CT pelvis MSK 09/03 IMPRESSION 1. Comminuted left acetabular fracture involving the medial wall with posttraumatic protrusio deformity. 2. The flat contour of the left femoral head is consistent with fracture. I do not however see displaced fracture typical the shear injury is seen in the setting. It is possible this base of the represent a compression of the femoral surface. 3. Pelvic hematoma. XR Pelvis 11/18 Impression 1. Unchanged ORIF of left acetabular fracture. 2. The fracture lines are better characterized on CT exam. XR knee, L 11/17 Impression No fracture or dislocation No large knee effusion. 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 11/21 advanced to WBAT BLE with assistive device at all times. ?? Agitated behavior issues may be environmental with baseline agitation and lack of normal routine. ??De-escalated opioids as not clear pain is driving agitation - will still treat as if L leg pain is part of the issue but try to spare opioids with tylenol and ibuprofen as well now that he is a few months out from acetabular fx repair. Also consolidating sedating meds closer to bedtime to try to achieve better sleep at night. Otherwise try to get him out and about and stimulated/interacting during the day, and if there is something he normally likes to do at nursing home, then try to avail him ofthat here. Caregiver indicates that this is normal behavior for him. Plan: # Left acetabular fracture: Improved -s/p operative repair on 09/04/2017 and orthopedics advanced to WBAT BLE (11/21) -continue scheduled tylenol -continue prn ibuprofen ?? # Toxic metabolic encephalopathy on baseline cognitive impairment with past CVA/hemorrhage from pituitary surgery: -encephalopathy seems like it has resolved - his ongoing waxing/waning periods of restlessness and yelling/moaning loudly alternating with periods of relative calm are apparently normal per caregiver -continue quetiapine, trazodone, and melatonin at 8pm (his usual bed time per caregiver) -has additional quetiapine available prn agitation -try to get him active and stimulated during the day -check bladder scan PRN / CIC PRN -cont bowel regimen -out of net bed now ?? # 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 -decreased hydrocortisone from 20/10/10 to 20/10 per endocrine on 11/16 -increased synthroid to 200 mcg 11/23. ? -seizures managed with home zonisamide 200mg PO QHS per neurology.?? -treat DI as below ?? # DI, Hyponatremia and hypernatremia: sodium stable -outpt ddAVP dosing and fluid restriction are 0.05 mg tid and 3.2 L, respectively - continue these and monitor Na level periodically -Na elevated intermittently when not drink enough - need to avail him of / allow him to take the 3.2+/- liters of po fluid per day - monitor Na periodically -appreciate Endocrine assistance # Fractured left lower molar: -Likely occurred with seizure, no evidence of acute infection. Extraction to occur in non-urgent manner pending availability, but per dentistry, not likely anytime soon. ?? # Urinary retention: But appears to only be in the morning - closely monitor for now # HTN - continue metoprolol ?? IV access: none Tubes/Drains: none DVT PPX: SCD Anticipated Disposition: SNF vs back to nursing home pending progress with PT/OT Team Pager(MD Coverage 27/01): # [phone] PCP: NAKIA Cifuentes [phone] Attestation: IPI Certification I certify that I am a D-H credentialed attending provider with admitting privileges and that the patient meets or has met medical necessity to require an inpatient IPI level of care meeting a minimumof two midnights or is on the [facility] inpatient only procedure list (status C) due to: the patient has met Inpatient IPI criteria and is awaiting rehabilitation or half-way facility placement withactive referrals in process FRAN GILLIAM MD 01/01/2018 * Chavez Kelsey RN - 01/01/2018 3:14 PM EDT OFFICE OF CARE MANAGEMENT Met briefly with miguel angel this afternoon. He is in bed and appears very agitated and upset at this time. CM call to [facility]- [phone] 2. VM left with CM contact to f/u and discuss state assistance for appropriate placement for this gentleman. He does not appear to require further formal PT. He has been cleared to walk with nursing. He is currently 2 person assist on stairs. Pt is unable to return to nursing home setting as his bedroom is second level and Miguel Angel unable to negotiate stairs safely. Discharge plan unclear at this time. * Fran Gilliam MD - 12/31/2017 2:04 PM EDT Hospital Medicine Attending Daily Progress Note Admit Date: 09/02/2017 Hospital Day 120 days Active Hospital Problems Diagnosis ??? S/P ORIF left acetabulum fracture 09/04/2017 Dr. Lance ??? Acute urinary retention ??? Diabetes insipidus ??? Adrenal insufficiency ??? Panhypopituitarism ??? Seizure disorder ??? Hypothyroidism Resolved Hospital Problems Diagnosis Date Resolved ??? Postoperative anemia due to acute blood loss 12/09/2017 PMH Active Non-Hospital Problems Diagnosis ??? Insomnia ??? Blind ??? CVA (cerebral vascular accident) ??? Urinary incontinence Interval History / ROS: -no events -doing well today -denies pain or any other complaints -doing awesome, why? Physical Exam Vitals Range last 24 hrs Temperature Temp: [36.5 ??C (97.7 ??F)] Heart Rate Heart Rate: [97] Blood Pressure BP: (128-136)/(81) Respiratory Rate Resp: [16] SpO2 SpO2: [96 %-99 %] Intake/Output Summary (Last 24 hours) at 12/31/17 1404 Last data filed at 12/31/17 1301 Gross per 24 hour Intake 1752 ml Output 1500 ml Net 252 ml No data found. Body mass index is 29.2 kg/(m^2). Estimated Creatinine Clearance: 140.7 mL/min (based on Cr of 0.9). CONSTITUTIONAL: appears comfortable, calm HEENT: Anticteric, MMM CHEST: RRR, no murmur LUNGS: CTAB ABDOMEN: soft, NT/ND EXTREMITIES: No edema SKIN: Warm/dry, no rash Studies reviewed in eDH. Remarkable for the following: LABS: Recent Labs 12/25/17 0550 WBC 4.9 HGB 11.9* HCT 36.4* PLATELET 313 Recent Labs 12/30/17 0824 12/29/17 0357 12/28/17202612/28/17 0004 12/25/17 0550 NA 147* 142 145 < > 146* < > 149* K 3.9 4.1 4.2 < > 3.6 -- 3.6 CL 108* 103 104 < > 104 -- 108* CO2 25 22 24 < > 25 -- 25 BUN -- -- -- -- 22* -- 14 CREATININE -- -- -- -- 0.90 -- 0.63* < > = values in this interval not displayed. No results for input(s): AST, ALT, ALKPHOS, BILITOT, BILIDIR in the last 168 hours. Recent Labs 12/28/17 0004 12/25/17 0550 CALCIUM 9.4 9.9 No results for input(s): PT, INR, PTT in the last 168 hours. No results for input(s): CK, TROPONINT in the last 168 hours. FSBG Trend No results for input(s): POCGLU in the last 72 hours. MICRO: No results for input(s): URINECULTURE in the last 720 hours. No results for input(s): GRAMSTAIN, BFCX, LOWERRESPCX, TISSUECX in the last 720 hours. No results for input(s): BLOODCX in the last 720 hours. ECG: Recent Labs 12/05/17 1729 DIAGLINE Sinus tachycardia Nonspecific ST/T wave abnormality Abnormal ECG When compared with ECG of 04-SEP-2017 22:30, Rate slower Confirmed by MD Oh, Sukhi Walker ([id number]) on 12/06/2017 10:46:47 AM QTCCALC 452 VASCULAR: No results for input(s): VBTEXTRPT in the last 720 hours. IMAGING: CT facial 10/20 IMPRESSION Multiple dental caries. Dental restorations limits resolution somewhat but no definite molar fracture can be seen. Consider Panorex of the mandible. CT pelvis MSK 09/03 IMPRESSION 1. Comminuted left acetabular fracture involving the medial wall with posttraumatic protrusio deformity. 2. The flat contour of the left femoral head is consistent with fracture. I do not however see displaced fracture typical the shear injury is seen in the setting. It is possible this base of the represent a compression of the femoral surface. 3. Pelvic hematoma. XR Pelvis 11/18 Impression 1. Unchanged ORIF of left acetabular fracture. 2. The fracture lines are better characterized on CT exam. XR knee, L 11/17 Impression No fracture or dislocation No large knee effusion. 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 11/21 advanced to WBAT BLE with assistive device at all times. ?? Agitated behavior issues may be environmental with baseline agitation and lack of normal routine. ??De-escalated opioids as not clear pain is driving agitation - will still treat as if L leg pain is part of the issue but try to spare opioids with tylenol and ibuprofen as well now that he is a few months out from acetabular fx repair. Also consolidating sedating meds closer to bedtime to try to achieve better sleep at night. Otherwise try to get him out and about and stimulated/interacting during the day, and if there is something he normally likes to do at nursing home, then try to avail him ofthat here. Caregiver indicates that this is normal behavior for him. Plan: # Left acetabular fracture: Improved -s/p operative repair on 09/04/2017 and orthopedics advanced to WBAT BLE (11/21) -continue scheduled tylenol -continue prn ibuprofen ?? # Toxic metabolic encephalopathy on baseline cognitive impairment with past CVA/hemorrhage from pituitary surgery: -encephalopathy seems like it has resolved - his ongoing waxing/waning periods of restlessness and yelling/moaning loudly alternating with periods of relative calm are apparently normal per caregiver -continue quetiapine, trazodone, and melatonin at 8pm (his usual bed time per caregiver) -has additional quetiapine available prn agitation -try to get him active and stimulated during the day -check bladder scan PRN / CIC PRN -cont bowel regimen -out of net bed now ?? # 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 -decreased hydrocortisone from 20/10/10 to 20/10 per endocrine on 11/16 -increased synthroid to 200 mcg 11/23. ? -seizures managed with home zonisamide 200mg PO QHS per neurology.?? -treat DI as below ?? # DI, Hyponatremia and hypernatremia: sodium stable -outpt ddAVP dosing and fluid restriction are 0.05 mg tid and 3.2 L, respectively - continue these and monitor Na level periodically -Na elevated intermittently when not drink enough - need to avail him of / allow him to take the 3.2+/- liters of po fluid per day - monitor Na periodically -appreciate Endocrine assistance # Fractured left lower molar: -Likely occurred with seizure, no evidence of acute infection. Extraction to occur in non-urgent manner pending availability, but per dentistry, not likely anytime soon. ?? # Urinary retention: But appears to only be in the morning - closely monitor for now # HTN - continue metoprolol ?? IV access: none Tubes/Drains: none DVT PPX: SCD Anticipated Disposition: SNF vs back to nursing home pending progress with PT/OT Team Pager(MD Coverage 27/01): # [phone] PCP: NAKIA Cifuentes [phone] Attestation: IPI Certification I certify that I am a D-H credentialed attending provider with admitting privileges and that the patient meets or has met medical necessity to require an inpatient IPI level of care meeting a minimumof two midnights or is on the [facility] inpatient only procedure list (status C) due to: the patient has met Inpatient IPI criteria and is awaiting rehabilitation or half-way facility placement withactive referrals in process FRAN GILLIAM MD 12/31/2017 * Leticia Yañez RN - 12/30/2017 6:50 PM EDT Assumed care of patient at 15:30; Patient continued with reported yelling and screaming out agitated and unable to be redirected. Patient did eat and tolerated PO meds in pudding at 18:00. Incontinent of urine x1 this shift. Unable to obtain 18:00 VS as pt was too agitated and refusing. Pt has been throwing blankets and pillows at staff. Remains with caregiver at bedside. 1:1 sitter maintained aswell. Will continue to monitor patient and update MD with any changes. * Fran Gilliam MD - 12/30/2017 3:02 PM EDT Hospital Medicine Attending Daily Progress Note Admit Date: 09/02/2017 Hospital Day 119 days Active Hospital Problems Diagnosis ??? S/P ORIF left acetabulum fracture 09/04/2017 Dr. Lance ??? Acute urinary retention ??? Diabetes insipidus ??? Adrenal insufficiency ??? Panhypopituitarism ??? Seizure disorder ??? Hypothyroidism Resolved Hospital Problems Diagnosis Date Resolved ??? Postoperative anemia due to acute blood loss 12/09/2017 PMH Active Non-Hospital Problems Diagnosis ??? Insomnia ??? Blind ??? CVA (cerebral vascular accident) ??? Urinary incontinence Interval History / ROS: -no events -calm and comfortable today -denies pain or any other complaints -doing awesome, why? Physical Exam Vitals Range last 24 hrs Temperature Temp: [36.6 ??C (97.9 ??F)-36.8 ??C (98.2 ??F)] Heart Rate Heart Rate: [97-114] Blood Pressure BP: (121-133)/(78-84) Respiratory Rate Resp: [15-18] SpO2 SpO2: [96 %-99 %] Intake/Output Summary (Last 24 hours) at 12/30/17 1502 Last data filed at 12/30/17 1259 Gross per 24 hour Intake 1660 ml Output 1700 ml Net -40 ml No data found. Body mass index is 29.2 kg/(m^2). Estimated Creatinine Clearance: 140.7 mL/min (based on Cr of 0.9). CONSTITUTIONAL: appears comfortable, calm at the moment HEENT: Anticteric, MMM CHEST: RRR, no murmur LUNGS: CTAB ABDOMEN: soft, NT/ND EXTREMITIES: No edema SKIN: Warm/dry, no rash Studies reviewed in eDH. Remarkable for the following: LABS: Recent Labs 12/25/17 0550 WBC 4.9 HGB 11.9* HCT 36.4* PLATELET 313 Recent Labs 12/30/17 0824 12/29/17 0357 12/28/177 12/28/17 0004 12/25/17 0550 NA 147* 142 145 < > 146* < > 149* K 3.9 4.1 4.2 < > 3.6 -- 3.6 CL 108* 103 104 < > 104 -- 108* CO2 25 22 24 < > 25 -- 25 BUN -- -- -- -- 22* -- 14 CREATININE -- -- -- -- 0.90 -- 0.63* < > = values in this interval not displayed. No results for input(s): AST, ALT, ALKPHOS, BILITOT, BILIDIR in the last 168 hours. Recent Labs 12/28/17 0004 12/25/17 0550 CALCIUM 9.4 9.9 No results for input(s): PT, INR, PTT in the last 168 hours. No results for input(s): CK, TROPONINT in the last 168 hours. FSBG Trend No results for input(s): POCGLU in the last 72 hours. MICRO: No results for input(s): URINECULTURE in the last 720 hours. No results for input(s): GRAMSTAIN, BFCX, LOWERRESPCX, TISSUECX in the last 720 hours. No results for input(s): BLOODCX in the last 720 hours. ECG: Recent Labs 12/05/17 1729 DIAGLINE Sinus tachycardia Nonspecific ST/T wave abnormality Abnormal ECG When compared with ECG of 04-SEP-2017 22:30, Rate slower Confirmed by MD Oh, Sukhi Walker ([id number]) on 12/06/2017 10:46:47 AM QTCCALC 452 VASCULAR: No results for input(s): VBTEXTRPT in the last 720 hours. IMAGING: CT facial 10/20 IMPRESSION Multiple dental caries. Dental restorations limits resolution somewhat but no definite molar fracture can be seen. Consider Panorex of the mandible. CT pelvis MSK 09/03 IMPRESSION 1. Comminuted left acetabular fracture involving the medial wall with posttraumatic protrusio deformity. 2. The flat contour of the left femoral head is consistent with fracture. I do not however see displaced fracture typical the shear injury is seen in the setting. It is possible this base of the represent a compression of the femoral surface. 3. Pelvic hematoma. XR Pelvis 11/18 Impression 1. Unchanged ORIF of left acetabular fracture. 2. The fracture lines are better characterized on CT exam. XR knee, L 11/17 Impression No fracture or dislocation No large knee effusion. 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 11/21 advanced to WBAT BLE with assistive device at all times. ?? Agitated behavior issues may be environmental with baseline agitation and lack of normal routine. ??De-escalated opioids as not clear pain is driving agitation - will still treat as if L leg pain is part of the issue but try to spare opioids with tylenol and ibuprofen as well now that he is a few months out from acetabular fx repair. Also consolidating sedating meds closer to bedtime to try to achieve better sleep at night. Otherwise try to get him out and about and stimulated/interacting during the day, and if there is something he normally likes to do at nursing home, then try to avail him ofthat here. Caregiver indicates that this is normal behavior for him. Plan: # Left acetabular fracture: Improved -s/p operative repair on 09/04/2017 and orthopedics advanced to WBAT BLE (11/21) -continue scheduled tylenol -continue prn ibuprofen ?? # Toxic metabolic encephalopathy on baseline cognitive impairment with past CVA/hemorrhage from pituitary surgery: -encephalopathy seems like it has resolved - his ongoing waxing/waning periods of restlessness and yelling/moaning loudly alternating with periods of relative calm are apparently normal per caregiver -continue quetiapine, trazodone, and melatonin at 8pm (his usual bed time per caregiver) -has additional quetiapine available prn agitation -try to get him active and stimulated during the day -check bladder scan PRN / CIC PRN -cont bowel regimen -out of net bed now ?? # 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 -decreased hydrocortisone from 20/10/10 to 20/10 per endocrine on 11/16 -increased synthroid to 200 mcg 11/23. ? -seizures managed with home zonisamide 200mg PO QHS per neurology.?? -treat DI as below ?? # DI, Hyponatremia and hypernatremia: sodium stable -outpt ddAVP dosing and fluid restriction are 0.05 mg tid and 3.2 L, respectively - continue these and monitor Na level periodically -Na elevated intermittently when not drink enough - need to avail him of / allow him to take the 3.2+/- liters of po fluid per day - monitor Na periodically -appreciate Endocrine assistance # Fractured left lower molar: -Likely occurred with seizure, no evidence of acute infection. Extraction to occur in non-urgent manner pending availability, but per dentistry, not likely anytime soon. ?? # Urinary retention: But appears to only be in the morning - closely monitor for now # HTN - continue metoprolol - increased from 25 to 50 mg qd on 12/28 ?? IV access: none Tubes/Drains: none DVT PPX: SCD Anticipated Disposition: SNF vs back to nursing home pending progress with PT/OT Team Pager( Coverage 27/01): # [phone] PCP: NAKIA Cifuentes [phone] Attestation: IPI Certification I certify that I am a D-H credentialed attending provider with admitting privileges and that the patient meets or has met medical necessity to require an inpatient IPI level of care meeting a minimumof two midnights or is on the CMS inpatient only procedure list (status C) due to: the patient has met Inpatient IPI criteria and is awaiting rehabilitation or half-way facility placement withactive referrals in process FRAN GILLIAM MD 12/30/2017 * Murtaza Bruce, PT - 12/29/2017 4:10 PM EDT PHYSICAL THERAPY CONTACT NOTE PT will be discontinuing therapy services effective today d/t the fact that therapy sessions have no longer become skillable with this patient. Pt is requiring 2 person assist on stairs and will likely be at this skill level for the forseable future. It was discussed in meeting today that nursing staff would work towards ambulating patient with FWW to/from bathroom and in room distances. If patient is behaving appropriately and making improvements in ambulation then therapy will consider trialing stairs again. Patient to be placed on monitor status. Murtaza Bruce PT, DPT Pager [phone] Inpatient Rehabilitation * Skyla Ayala, OT - 12/29/2017 2:00 PM EDT Occupational Therapy Note Attended Pt care rounds with PT, and discussed Pt's status and needs. Pt was seen for 13 OT sessions, and progressed to transferring with one assist. Pt could sustain sitting eob for care tasks as behavior/mood allowed with supervision. Pt continues to require assistance with toileting 2' incontinence, and has a hx of incontinence at baseline. Pt is assist with bathing at baseline and will participate at times with care as he has here. He isn't a fan of clothing, and given his mood and willingness will assist with dressing. From the OT standpoint, he has progressed to 1 assist from 2 on evaluation with ADLs, but progress now has stalled and he isn't showing gains. Plan to switch him to monitor as discussed with ZULMA. Nursing to continue maintenance level of care and encourage participation as able. Skyla Ayala, OTR Pager [phone] * Fran Gilliam MD - 12/29/2017 1:08 PM EDT Hospital Medicine Attending Daily Progress Note Admit Date: 09/02/2017 Hospital Day 118 days Active Hospital Problems Diagnosis ??? S/P ORIF left acetabulum fracture 09/04/2017 Dr. Lance ??? Acute urinary retention ??? Diabetes insipidus ??? Adrenal insufficiency ??? Panhypopituitarism ??? Seizure disorder ??? Hypothyroidism Resolved Hospital Problems Diagnosis Date Resolved ??? Postoperative anemia due to acute blood loss 12/09/2017 PM Active Non-Hospital Problems Diagnosis ??? Insomnia ??? Blind ??? CVA (cerebral vascular accident) ??? Urinary incontinence Interval History / ROS: -restless overnight -calm, quiet, and appears very comfortable today -Na improved to 142 -otherwise no new issues Physical Exam Vitals Range last 24 hrs Temperature Temp: [36.5 ??C (97.7 ??F)-36.9 ??C (98.4 ??F)] Heart Rate Heart Rate: [94-121] Blood Pressure BP: (123-147)/(75-82) Respiratory Rate Resp: [17-20] SpO2 SpO2: [97 %-98 %] Intake/Output Summary (Last 24 hours) at 12/29/17 1308 Last data filed at 12/29/17 0818 Gross per 24 hour Intake 1620 ml Output 1650 ml Net -30 ml No data found. Body mass index is 29.2 kg/(m^2). Estimated Creatinine Clearance: 140.7 mL/min (based on Cr of 0.9). CONSTITUTIONAL: appears comfortable, calm at the moment HEENT: Anticteric, MMM CHEST: RRR, no murmur LUNGS: CTAB ABDOMEN: soft, NT/ND EXTREMITIES: No edema SKIN: Warm/dry, no rash Studies reviewed in eDH. Remarkable for the following: LABS: Recent Labs 12/25/17 0550 12/23/17 0641 WBC 4.9 4.8 HGB 11.9* 10.6* HCT 36.4* 34.7* PLATELET 313 286 Recent Labs 12/29/17 0357 12/28/177 12/28/17 0508 12/28/17 0004 12/25/17 0550 12/23/17 0641 NA 142 145 148* 146* < > 149* < > 149* K 4.1 4.2 3.9 3.6 -- 3.6 -- 4.0 CL 103 104 105 104 -- 108* -- 111* CO2 22 24 25 25 -- 25 -- 24 BUN -- -- -- 22* -- 14 -- 14 CREATININE -- -- -- 0.90 -- 0.63* -- 0.61* < > = values in this interval not displayed. No results for input(s): AST, ALT, ALKPHOS, BILITOT, BILIDIR in the last 168 hours. Recent Labs 12/28/17 0004 12/25/17 0550 12/23/17 0641 CALCIUM 9.4 9.9 9.6 No results for input(s): PT, INR, PTT in the last 168 hours. No results for input(s): CK, TROPONINT in the last 168 hours. FSBG Trend No results for input(s): POCGLU in the last 72 hours. MICRO: No results for input(s): URINECULTURE in the last 720 hours. No results for input(s): GRAMSTAIN, BFCX, LOWERRESPCX, TISSUECX in the last 720 hours. No results for input(s): BLOODCX in the last 720 hours. ECG: Recent Labs 12/05/17 1729 DIAGLINE Sinus tachycardia Nonspecific ST/T wave abnormality Abnormal ECG When compared with ECG of 04-SEP-2017 22:30, Rate slower Confirmed by MD Oh, Sukhi Walker ([id number]) on 12/06/2017 10:46:47 AM QTCCALC 452 VASCULAR: No results for input(s): VBTEXTRPT in the last 720 hours. IMAGING: CT facial 10/20 IMPRESSION Multiple dental caries. Dental restorations limits resolution somewhat but no definite molar fracture can be seen. Consider Panorex of the mandible. CT pelvis MSK 09/03 IMPRESSION 1. Comminuted left acetabular fracture involving the medial wall with posttraumatic protrusio deformity. 2. The flat contour of the left femoral head is consistent with fracture. I do not however see displaced fracture typical the shear injury is seen in the setting. It is possible this base of the represent a compression of the femoral surface. 3. Pelvic hematoma. XR Pelvis 11/18 Impression 1. Unchanged ORIF of left acetabular fracture. 2. The fracture lines are better characterized on CT exam. XR knee, L 11/17 Impression No fracture or dislocation No large knee effusion. 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 11/21 advanced to WBAT BLE with assistive device at all times. ?? Agitated behavior issues may be environmental with baseline agitation and lack of normal routine. ??De-escalated opioids as not clear pain is driving agitation - will still treat as if L leg pain is part of the issue but try to spare opioids with tylenol and ibuprofen as well now that he is a few months out from acetabular fx repair. Also consolidating sedating meds closer to bedtime to try to achieve better sleep at night. Otherwise try to get him out and about and stimulated/interacting during the day, and if there is something he normally likes to do at nursing home, then try to avail him ofthat here. Caregiver indicates that this is normal behavior for him. Plan: # Left acetabular fracture: Improved -s/p operative repair on 09/04/2017 and orthopedics advanced to WBAT BLE (11/21) -continue scheduled tylenol -continue prn ibuprofen ?? # Toxic metabolic encephalopathy on baseline cognitive impairment with past CVA/hemorrhage from pituitary surgery: -encephalopathy seems like it has resolved - his ongoing waxing/waning periods of restlessness and yelling/moaning loudly alternating with periods of relative calm are apparently normal per caregiver -continue quetiapine, trazodone, and melatonin at 8pm (his usual bed time per caregiver) -has additional quetiapine available prn agitation -try to get him active and stimulated during the day -check bladder scan PRN / CIC PRN -cont bowel regimen -out of net bed now ?? # 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 -decreased hydrocortisone from 20/10/10 to 20/10 per endocrine on 11/16 -increased synthroid to 200 mcg 11/23. ? -seizures managed with home zonisamide 200mg PO QHS per neurology.?? -treat DI as below ?? # DI, Hyponatremia and hypernatremia: sodium stable -outpt ddAVP dosing and fluid restriction are 0.05 mg tid and 3.2 L, respectively - continue these and monitor Na level periodically -Na elevated intermittently when not given enough to drink - need to avail him of / allow him to take about 3 L po fluid per day - continue to trend daily for right now -appreciate Endocrine assistance # Fractured left lower molar: -Likely occurred with seizure, no evidence of acute infection. Extraction to occur in non-urgent manner pending availability, but per dentistry, not likely anytime soon. ?? # Urinary retention: But appears to only be in the morning - closely monitor for now # HTN - continue metoprolol - increased from 25 to 50 mg qd on 12/28 ?? IV access: none Tubes/Drains: none DVT PPX: SCD Anticipated Disposition: SNF vs back to nursing home pending progress with PT/OT Team Pager( Coverage 27/01): # [phone] PCP: NAKIA Cifuentes [phone] Attestation: IPI Certification I certify that I am a D-H credentialed attending provider with admitting privileges and that the patient meets or has met medical necessity to require an inpatient IPI level of care meeting a minimumof two midnights or is on the [facility] inpatient only procedure list (status C) due to: the patient has met Inpatient IPI criteria and is awaiting rehabilitation or half-way facility placement withactive referrals in process FRAN GILLIAM MD 12/29/2017 * Tricia Gerber RN - 12/29/2017 11:15 AM EDT Left another voice mail for Subha Tejeda [phone] at [facility] [employer] [facility]. Request additionalinformation regarding nursing home/ sitters/ developmental services waiver. [facility] has requested to remove the sitters they have been providing as they are getting burnedout and don't feel they are needed any more. Spoke with Lc Hull ([facility] [employer] Producer) at [phone]. He reports that having sitters here or not does not affect pateints funding. States what may affect his funding is length of time spent in the hospital. Reports funding can end after 90 days in hospital. [facility] department of aging and independent living along with Marcia Reilly would be the ones making that decision. Stated that the sitters coming in are clueless to the inter-workings of medicaid. He once again reiterated. whether there are sitters there are not has absolutely no bearing on the agencies involvement or payment. Questioned Lc on his agencies involvement in finding placement he reports that [facility] Estrella was working with [facility] on an agreement. Informed him that per [facility] liaison, patient is a regional denial. States he was not aware of that. Explained that patient is medically ready, in need of placement, and request assistance with placement. He reports that he will send RN out to review and determine if he is possibly ready for return to nursing home. Case management will continue to follow. Tricia Gerber RN Case Homemaker Companion of Care Management [email or web address] Pager: [phone] * Fran Gilliam MD - 12/28/2017 2:09 PM EDT Hospital Medicine Attending Daily Progress Note Admit Date: 09/02/2017 Hospital Day 117 days Active Hospital Problems Diagnosis ??? S/P ORIF left acetabulum fracture 09/04/2017 Dr. Lance ??? Acute urinary retention ??? Diabetes insipidus ??? Adrenal insufficiency ??? Panhypopituitarism ??? Seizure disorder ??? Hypothyroidism Resolved Hospital Problems Diagnosis Date Resolved ??? Postoperative anemia due to acute blood loss 12/09/2017 [facility] Active Non-Hospital Problems Diagnosis ??? Insomnia ??? Blind ??? CVA (cerebral vascular accident) ??? Urinary incontinence Interval History / ROS: -had a restless night -relatively calm today -caregiver and sitter report that c/o being bored -Na still mildly high at 148 -otherwise no new issues Physical Exam Vitals Range last 24 hrs Temperature Temp: [36.6 ??C (97.9 ??F)-36.7 ??C (98.1 ??F)] Heart Rate Heart Rate: [96-106] Blood Pressure BP: (118-154)/(80-122) Respiratory Rate Resp: [18-21] SpO2 SpO2: [97 %-100 %] Intake/Output Summary (Last 24 hours) at 12/28/17 1409 Last data filed at 12/28/17 1200 Gross per 24 hour Intake 1890 ml Output 0 ml Net 1890 ml No data found. Body mass index is 29.2 kg/(m^2). Estimated Creatinine Clearance: 140.7 mL/min (based on Cr of 0.9). CONSTITUTIONAL: appears comfortable, calm at the moment HEENT: Anticteric, MMM CHEST: RRR, no murmur LUNGS: CTAB ABDOMEN: soft, NT/ND EXTREMITIES: No edema SKIN: Warm/dry, no rash Studies reviewed in eDH. Remarkable for the following: LABS: Recent Labs 12/25/17 0550 12/23/17 0641 WBC 4.9 4.8 HGB 11.9* 10.6* HCT 36.4* 34.7* PLATELET 313 286 Recent Labs 12/28/17 0508 12/28/17 0004 12/26/17 2223 12/25/17 0550 12/23/17 0641 NA 148* 146* 147* < > 149* < > 149* K 3.9 3.6 -- -- 3.6 -- 4.0 CL 105 104 -- -- 108* -- 111* CO2 25 25 -- -- 25 -- 24 BUN -- 22* -- -- 14 -- 14 CREATININE -- 0.90 -- -- 0.63* -- 0.61* < > = values in this interval not displayed. No results for input(s): AST, ALT, ALKPHOS, BILITOT, BILIDIR in the last 168 hours. Recent Labs 12/28/17 0004 12/25/17 0550 12/23/17 0641 CALCIUM 9.4 9.9 9.6 No results for input(s): PT, INR, PTT in the last 168 hours. No results for input(s): CK, TROPONINT in the last 168 hours. FSBG Trend No results for input(s): POCGLU in the last 72 hours. MICRO: No results for input(s): URINECULTURE in the last 720 hours. No results for input(s): GRAMSTAIN, BFCX, LOWERRESPCX, TISSUECX in the last 720 hours. No results for input(s): BLOODCX in the last 720 hours. ECG: Recent Labs 12/05/17 1729 DIAGLINE Sinus tachycardia Nonspecific ST/T wave abnormality Abnormal ECG When compared with ECG of 04-SEP-2017 22:30, Rate slower Confirmed by MD Oh, Sukhi Walker ([id number]) on 12/06/2017 10:46:47 AM QTCCALC 452 VASCULAR: No results for input(s): VBTEXTRPT in the last 720 hours. IMAGING: CT facial 10/20 IMPRESSION Multiple dental caries. Dental restorations limits resolution somewhat but no definite molar fracture can be seen. Consider Panorex of the mandible. CT pelvis MSK 09/03 IMPRESSION 1. Comminuted left acetabular fracture involving the medial wall with posttraumatic protrusio deformity. 2. The flat contour of the left femoral head is consistent with fracture. I do not however see displaced fracture typical the shear injury is seen in the setting. It is possible this base of the represent a compression of the femoral surface. 3. Pelvic hematoma. XR Pelvis 11/18 Impression 1. Unchanged ORIF of left acetabular fracture. 2. The fracture lines are better characterized on CT exam. XR knee, L 11/17 Impression No fracture or dislocation No large knee effusion. 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 11/21 advanced to WBAT BLE with assistive device at all times. ?? Agitated behavior issues may be environmental with baseline agitation and lack of normal routine. ??De-escalated opioids as not clear pain is driving agitation - will still treat as if L leg pain is part of the issue but try to spare opioids with tylenol and ibuprofen as well now that he is a few months out from acetabular fx repair. Also consolidating sedating meds closer to bedtime to try to achieve better sleep at night. Otherwise try to get him out and about and stimulated/interacting during the day, and if there is something he normally likes to do at nursing home, then try to avail him ofthat here. Caregiver indicates that this is normal behavior for him. Plan: # Left acetabular fracture: Improved -s/p operative repair on 09/04/2017 and orthopedics advanced to WBAT BLE (11/21) -continue scheduled tylenol -continue prn ibuprofen ?? # Toxic metabolic encephalopathy on baseline cognitive impairment with past CVA/hemorrhage from pituitary surgery: -encephalopathy seems like it has resolved - his ongoing waxing/waning periods of restlessness and yelling/moaning loudly alternating with periods of relative calm are apparently normal per caregiver -continue quetiapine, trazodone, and melatonin at 8pm (his usual bed time per caregiver) -has additional quetiapine available prn agitation -try to get him active and stimulated during the day -check bladder scan PRN / CIC PRN -cont bowel regimen -out of net bed now ?? # 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 -decreased hydrocortisone from 20/ to 20/10 per endocrine on 11/16 -increased synthroid to 200 mcg 11/23. ? -seizures managed with home zonisamide 200mg PO QHS per neurology.?? -treat DI as below ?? # DI, Hyponatremia and hypernatremia: sodium stable -outpt ddAVP dosing and fluid restriction are 0.05 mg tid and 3.2 L, respectively - continue these and monitor Na level periodically -Na mildly elevated currently - need to avail him of / allow him to take about 3 L po fluid per day- continue to trend daily for right now -appreciate Endocrine assistance # Fractured left lower molar: -Likely occurred with seizure, no evidence of acute infection. Extraction to occur in non-urgent manner pending availability, but per dentistry, not likely anytime soon. ?? # Urinary retention: But appears to only be in the morning - closely monitor for now # HTN - continue metoprolol - increase from 25 to 50 mg qd ?? IV access: none Tubes/Drains: none DVT PPX: SCD Anticipated Disposition: SNF vs back to nursing home pending progress with PT/OT Team Pager( Coverage 27/01): # [phone] PCP: NAKIA Cifuentes [phone] Attestation: IPI Certification I certify that I am a D-H credentialed attending provider with admitting privileges and that the patient meets or has met medical necessity to require an inpatient IPI level of care meeting a minimumof two midnights or is on the CMS inpatient only procedure list (status C) due to: the patient has met Inpatient IPI criteria and is awaiting rehabilitation or half-way facility placement withactive referrals in process PETERS W DOMINIAK, MD 12/28/2017 * Ren Dumont MD - 12/28/2017 11:04 AM EDT Images from the original note were not included. 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 ?? New events since last time seen: We have been mostly following Na. Na peaked 155 on 12/26/2017 at 10:03 am. And now 148. For the past couple of days we have asked RN to encourage PO intake to at least2.5- 3 L. I have opted for that instead of giving any more DDAVP (which can decrease the Na much more/faster). In the last 24 hours, the PO intake was 540 mL (wereas the prior day it was 2,720 mL). No past medical history on file. Past Surgical History: Procedure Laterality Date ??? PRO OPEN CROSSCUTTER ROLLED GLASS FIX ACETABULAR FX Left 09/04/2017 @OPEN TREATMENT, ACETABULAR FX (WRVU 25.41) performed by Amy Lance MD at [facility] MAIN OR No family history on file. Current Medications: Scheduled Meds: ??? metoprolol succinate 25 mg Oral Daily ??? traZODone 50 mg Oral Nightly ??? desmopressin 0.05 mg Oral TID ??? acetaminophen 650 mg Oral TID ??? melatonin 9 mg Oral Nightly ??? QUEtiapine 250 mg Oral Nightly ??? levothyroxine 200 mcg Oral QAM ??? calcium carbonate 500 mg Oral Nightly ??? hydrocortisone 10 mg Oral Daily at Noon ??? senna-docusate 2 tablet Oral BID ??? testosterone 5 g Transdermal Nightly ??? methyl salicylate-menthol Topical (Top) BID ??? cholecalciferol (Vitamin D3) 1,000 Units Oral Daily ??? hydrocortisone 20 mg Oral QAM ??? pantoprazole 40 mg Oral QAM AC ??? zonisamide 200 mg Oral Nightly Continuous Infusions: PRN Meds:.ibuprofen, QUEtiapine, polyethylene glycol (MIRALAX)oral powder, simethicone, bisacodyl, naphazoline-pheniramine Allergies Allergen Reactions ??? Lopid [Gemfibrozil] Physical Exam: BP 144/83 Pulse (!) 106 Temp 36.7 ??C (98.1 ??F) (Oral) Resp 21 Ht 177.8 cm (5' 10) Wt 92.3 kg (203 lb 7.8 oz) SpO2 97% BMI 29.2 kg/m2 Patient was not examined today Labs: Ref. Range 12/28/2017 00:04 12/28/2017 05:08 Sodium Latest Ref Range: 135 - 145 mmol/L 146 (H) 148 (H) Potassium Latest Ref Range: 3.5 - 5.0 mmol/L 3.6 3.9 Chloride Latest Ref Range: 98 - 107 mmol/L 104 105 CO2 Latest Ref Range: 22 - 31 mmol/L 25 25 Anion Gap Latest Ref Range: 5 - 15 mmol/L 17 (H) 18 (H) BUN Latest Ref Range: 10 - 20 mg/dL 22 (H) Creatinine Latest Ref Range: 0.80 - 1.50 mg/dL 0.90 eGFR Latest Ref Range: >=60 mL/min/1.73 m?? 117 eGFR Latest Ref Range: >=60 mL/min/1.73 m?? 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 Main active issue is hypernatremia to be known to be secondary to DI. It peaked on 12/26/2017- 155 and then down trended to 148 earlier today. We have asked RN's at the bedside to promote increased oral PO intake (from 2.5 - 3 L) and will continue doing so. Other options to correct sodium include giving free water IV (as 5% dextrose), or giving more DDAVP. Spoke with the nurse who will continue to promote increasing PO intake- goal from 2.5- 3 L in 24 hours (until 7 am tomorrow). For now continue trending Na. Thank you for allowing us participate in the care of this patient. Patient was discussed with Dr. Dumont. Guerrero Tillman MD Endocrinology, Diabetes and Metabolism Fellow Pager #[phone] 12/28/2017 I have disucssed patient with Dr. Cage and agree owth his recommendations and plans. Benjie Dumont MD * Fran Gilliam MD - 12/27/2017 2:37 PM EDT Hospital Medicine Attending Daily Progress Note Admit Date: 09/02/2017 Hospital Day 116 days Active Hospital Problems Diagnosis ??? S/P ORIF left acetabulum fracture 09/04/2017 Dr. Lance ??? Acute urinary retention ??? Diabetes insipidus ??? Adrenal insufficiency ??? Panhypopituitarism ??? Seizure disorder ??? Hypothyroidism Resolved Hospital Problems Diagnosis Date Resolved ??? Postoperative anemia due to acute blood loss 12/09/2017 PMH Active Non-Hospital Problems Diagnosis ??? Insomnia ??? Blind ??? CVA (cerebral vascular accident) ??? Urinary incontinence Interval History / ROS: -no events overnight -sleeping a lot today -no new issues Physical Exam Vitals Range last 24 hrs Temperature Temp: [36.8 ??C (98.2 ??F)-37.4 ??C (99.4 ??F)] Heart Rate Heart Rate: [105-118] Blood Pressure BP: (127-138)/(77-93) Respiratory Rate Resp: [17-20] SpO2 SpO2: [94 %-100 %] Intake/Output Summary (Last 24 hours) at 12/27/17 1437 Last data filed at 12/27/17 1330 Gross per 24 hour Intake 1660 ml Output 700 ml Net 960 ml No data found. Body mass index is 29.2 kg/(m^2). Estimated Creatinine Clearance: 201 mL/min (based on Cr of 0.63). CONSTITUTIONAL: appears comfortable, calm at the moment HEENT: Anticteric, MMM CHEST: RRR, no murmur LUNGS: CTAB ABDOMEN: soft, NT/ND EXTREMITIES: No edema SKIN: Warm/dry, no rash Studies reviewed in eDH. Remarkable for the following: LABS: Recent Labs 12/25/17 0550 12/23/17 0641 12/21/17 1018 WBC 4.9 4.8 8.3 HGB 11.9* 10.6* 12.5* HCT 36.4* 34.7* 40.5 PLATELET 313 286 333 Recent Labs 12/26/17 2223 12/26/17 1003 12/26/17 0511 12/25/17 0550 12/23/17 0641 12/21/17 1018 NA 147* 155* 154* 149* < > 149* < > 147* K -- -- -- 3.6 -- 4.0 -- 4.2 CL -- -- -- 108* -- 111* -- 109* CO2 -- -- -- 25 -- 24 -- 22 BUN -- -- -- 14 -- 14 -- 15 CREATININE -- -- -- 0.63* -- 0.61* -- 0.82 < > = values in this interval not displayed. No results for input(s): AST, ALT, ALKPHOS, BILITOT, BILIDIR in the last 168 hours. Recent Labs 12/25/17 0550 12/23/17 0641 12/21/17 1018 CALCIUM 9.9 9.6 10.2 No results for input(s): PT, INR, PTT in the last 168 hours. No results for input(s): CK, TROPONINT in the last 168 hours. FSBG Trend No results for input(s): POCGLU in the last 72 hours. MICRO: No results for input(s): URINECULTURE in the last 720 hours. No results for input(s): GRAMSTAIN, BFCX, LOWERRESPCX, TISSUECX in the last 720 hours. No results for input(s): BLOODCX in the last 720 hours. ECG: Recent Labs 12/05/17 1729 DIAGLINE Sinus tachycardia Nonspecific ST/T wave abnormality Abnormal ECG When compared with ECG of 04-SEP-2017 22:30, Rate slower Confirmed by MD Oh, Sukhi Walker ([id number]) on 12/06/2017 10:46:47 AM QTCCALC 452 VASCULAR: No results for input(s): VBTEXTRPT in the last 720 hours. IMAGING: CT facial 10/20 IMPRESSION Multiple dental caries. Dental restorations limits resolution somewhat but no definite molar fracture can be seen. Consider Panorex of the mandible. CT pelvis MSK 09/03 IMPRESSION 1. Comminuted left acetabular fracture involving the medial wall with posttraumatic protrusio deformity. 2. The flat contour of the left femoral head is consistent with fracture. I do not however see displaced fracture typical the shear injury is seen in the setting. It is possible this base of the represent a compression of the femoral surface. 3. Pelvic hematoma. XR Pelvis 11/18 Impression 1. Unchanged ORIF of left acetabular fracture. 2. The fracture lines are better characterized on CT exam. XR knee, L 11/17 Impression No fracture or dislocation No large knee effusion. 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 11/21 advanced to WBAT BLE with assistive device at all times. ?? Agitated behavior issues may be environmental with baseline agitation and lack of normal routine. ??De-escalated opioids as not clear pain is driving agitation - will still treat as if L leg pain is part of the issue but try to spare opioids with tylenol and ibuprofen as well now that he is a few months out from acetabular fx repair. Also consolidating sedating meds closer to bedtime to try to achieve better sleep at night. Caregiver indicates that this is normal behavior for him. Otherwise try to get him out and about and stimulated/interacting during the day, and if there is something he normally likes to do at nursing home, then try to avail him of that here. Plan: # Left acetabular fracture: Improved -s/p operative repair on 09/04/2017 and orthopedics advanced to WBAT BLE (11/21) -continue scheduled tylenol -continue prn ibuprofen ?? # Toxic metabolic encephalopathy on baseline cognitive impairment with past CVA/hemorrhage from pituitary surgery: -encephalopathy seems like it has resolved - his ongoing waxing/waning periods of restlessness and yelling/moaning loudly alternating with periods of relative calm are apparently normal per caregiver -continue quetiapine, trazodone, and melatonin at 8pm (his usual bed time per caregiver) -has additional quetiapine available prn agitation -try to get him active and stimulated during the day -check bladder scan PRN / CIC PRN -cont bowel regimen -out of net bed now ?? # 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 -decreased hydrocortisone from 20/10/10 to 20/10 per endocrine on 11/16 -increased synthroid to 200 mcg 11/23. ? -seizures managed with home zonisamide 200mg PO QHS per neurology.?? -treat DI as below ?? # DI, Hyponatremia and hypernatremia: sodium stable -outpt ddAVP dosing and fluid restriction are 0.05 mg tid and 3.2 L, respectively - continue these and monitor Na level periodically -Na trending back down now with better po intake - continue to trend daily for the next few days toensure stability -appreciate Endocrine assistance # Fractured left lower molar: -Likely occurred with seizure, no evidence of acute infection. Extraction to occur in non-urgent manner pending availability, but per dentistry, not likely anytime soon. ?? # Urinary retention: But appears to only be in the morning - closely monitor for now ?? IV access: none Tubes/Drains: none DVT PPX: SCD Anticipated Disposition: SNF vs back to nursing home pending progress with PT/OT Team Pager( Coverage 27/01): # [phone] PCP: NAKIA Cifuentes [phone] Attestation: IPI Certification I certify that I am a [facility] credentialed attending provider with admitting privileges and that the patient meets or has met medical necessity to require an inpatient IPI level of care meeting a minimumof two midnights or is on the CMS inpatient only procedure list (status C) due to: the patient has met Inpatient IPI criteria and is awaiting rehabilitation or half-way facility placement withactive referrals in process FRAN GILLIAM MD 12/27/2017 * Ren Dumont MD - 12/27/2017 10:57 AM EDT Brief Endocrinology Progress note Sodium has been down trending after we recommended continuing the same dose of DDAVP and increasingPO intake (went from 155 to 147 in 12 hours). In the last 24 hours, the patient had a PO intake of 2,720 mL. Spoke with the nurse and asked her to stimulate PO intake (intake should be at least 2.5- 3 L in 24 hours). Continue trending Na. Patient was discussed with Dr. Dumont. I have discussed patient with Dr. Cage and agree with his recommendations and plans. Benjie Dumont MD * Ren Dumont MD - 12/26/2017 1:21 PM EDT Images from the original note were not included. 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 New events since last time seen: we have been following sodium and uptrending to 154 today. Patientcurrently on DDAVP 0.05 mg 3 times a day. Oral PO intake in 24 hours has been randing from 1,680 mL- 2,980 mL/hr and urine output 1,125 mL in the last 24 hours. Patient was sleeping at the time of my evaluation. He is thirsty and has mildly dry mucous membranes. Per the caregiver and nurse at the bedside we can stimulate he drink more fluids. He does not have an IV at the time. No past medical history on file. Past Surgical History: Procedure Laterality Date ??? PRO OPEN CROSSCUTTER ROLLED GLASS FIX ACETABULAR FX Left 09/04/2017 @OPEN TREATMENT, ACETABULAR FX (WRVU 25.41) performed by Amy Lance MD at [facility] MAIN OR No family history on file. Current Medications: Scheduled Meds: ??? metoprolol succinate 25 mg Oral Daily ??? traZODone 50 mg Oral Nightly ??? desmopressin 0.05 mg Oral TID ??? acetaminophen 650 mg Oral TID ??? melatonin 9 mg Oral Nightly ??? QUEtiapine 250 mg Oral Nightly ??? levothyroxine 200 mcg Oral QAM ??? calcium carbonate 500 mg Oral Nightly ??? hydrocortisone 10 mg Oral Daily at Noon ??? senna-docusate 2 tablet Oral BID ??? testosterone 5 g Transdermal Nightly ??? methyl salicylate-menthol Topical (Top) BID ??? cholecalciferol (Vitamin D3) 1,000 Units Oral Daily ??? hydrocortisone 20 mg Oral QAM ??? pantoprazole 40 mg Oral QAM AC ??? zonisamide 200 mg Oral Nightly Continuous Infusions: PRN Meds:.ibuprofen, QUEtiapine, polyethylene glycol (MIRALAX)oral powder, simethicone, bisacodyl, naphazoline-pheniramine Allergies Allergen Reactions ??? Lopid [Gemfibrozil] Physical Exam: BP 145/89 (BP Location (NBP): Left arm, Patient Position: Lying) Pulse (!) 116 Temp 37 ??C (98.6 ??F) (Oral) Resp 18 Ht 177.8 cm (5' 10) Wt 92.3 kg (203 lb 7.8 oz) SpO2 97% BMI 29.2 kg/m2 Patient was not examined Labs: Ref. Range 12/16/2017 09:01 12/21/2017 10:18 12/21/2017 20:00 12/23/2017 06:41 12/24/2017 00:19 12/25/2017 05:50 12/26/2017 05:11 12/26/2017 10:03 Sodium Latest Ref Range: 135 - 145 mmol/L 143 147 (H) 143 149 (H) 147 (H) 149 (H) 154 (H) 155 (H) Potassium Latest Ref Range: 3.5 - 5.0 mmol/L 3.8 4.2 4.0 3.6 Chloride Latest Ref Range: 98 - 107 mmol/L 103 109 (H) 111 (H) 108 (H) CO2 Latest Ref Range: 22 - 31 mmol/L 23 22 24 25 Anion Gap Latest Ref Range: 5 - 15 mmol/L 17 (H) 16 (H) 14 16 (H) BUN Latest Ref Range: 10 - 20 mg/dL 15 14 14 Creatinine Latest Ref Range: 0.80 - 1.50 mg/dL 0.82 0.61 (L) 0.63 (L) eGFR Latest Ref Range: >=60 mL/min/1.73 m?? 121 137 135 eGFR Latest Ref Range: >=60 mL/min/1.73 m?? 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 He is hypernatremic 155 today from 149 yesterday. He is currently on DDAVP 0.05 mg three times a day. So far he has just had 1.3 L oral intake and is sleeping. He needs more free water and I would recommend stimulating PO intake. Nurse and rn medicare think this is possible and will make sure he drinks more. Other options would be giving more DDAVP versus starting IV dextrose (but he does not have an IV and removes them). Hopefully by stimulating PO intake (has a restriction of 3.2 L) he will correct Na. Sodium level isin process- will follow. Thank you for allowing us participate in the care of this patient. Patient was discussed with Dr. Dumont. Guerrero Tillman MD Endocrinology, Diabetes and Metabolism Fellow Pager #[phone] 12/26/2017 I have discussed patient with Dr. Cage and agree with his recommendations and plans. Benjie Dumont MD * José Miguel Maher MD - 12/26/2017 7:49 AM EDT Hospital Medicine Attending Daily Progress Note Admit Date: 09/02/2017 Hospital Day 115 days Active Hospital Problems Diagnosis ??? S/P ORIF left acetabulum fracture 09/04/2017 Dr. Lance ??? Acute urinary retention ??? Diabetes insipidus ??? Adrenal insufficiency ??? Panhypopituitarism ??? Seizure disorder ??? Hypothyroidism Resolved Hospital Problems Diagnosis Date Resolved ??? Postoperative anemia due to acute blood loss 12/09/2017 PMH Active Non-Hospital Problems Diagnosis ??? Insomnia ??? Blind ??? CVA (cerebral vascular accident) ??? Urinary incontinence Interval History: - Oriented to self - Intermittently agitated - Sitter at bedside - Incontinent - Tramadol for R knee pain ROS: Unable to obtain Physical Exam Vitals Range last 24 hrs Temperature Temp: [36.4 ??C (97.5 ??F)-36.5 ??C (97.7 ??F)] Heart Rate Heart Rate: [97-106] Blood Pressure BP: (131-141)/(69-85) Respiratory Rate Resp: [18] SpO2 SpO2: [98 %] Intake/Output Summary (Last 24 hours) at 12/26/17 0742 Last data filed at 12/25/17 1934 Gross per 24 hour Intake 1680 ml Output 1125 ml Net 555 ml No data found. Body mass index is 29.2 kg/(m^2). Estimated Creatinine Clearance: 201 mL/min (based on Cr of 0.63). CONSTITUTIONAL: awake, alert, not in acute distress HEENT: PERRLA, EOMI, (-) JVD (-) thyromegaly CHEST: RRR, (-) murmur LUNGS: SCE, resonant to percussion, (-) wheeze, (-) crackles ABDOMEN: soft, NABS, (-) tenderness, (-) hepatomegaly, (-) splenomegaly EXTREMITIES: (-) edema, pulses full and equal SKIN: moist, (-) rash Studies reviewed in eDH. Remarkable for the following: LABS: Recent Labs 12/25/17 0550 12/23/17 0641 12/21/17 1018 WBC 4.9 4.8 8.3 HGB 11.9* 10.6* 12.5* HCT 36.4* 34.7* 40.5 PLATELET 313 286 333 Recent Labs 12/26/17 0511 12/25/17 0550 12/24/17 0019 12/23/17 0641 12/21/17 1018 NA 154* 149* 147* 149* < > 147* K -- 3.6 -- 4.0 -- 4.2 CL -- 108* -- 111* -- 109* CO2 -- 25 -- 24 -- 22 BUN -- 14 -- 14 -- 15 CREATININE -- 0.63* -- 0.61* -- 0.82 < > = values in this interval not displayed. No results for input(s): AST, ALT, ALKPHOS, BILITOT, BILIDIR in the last 168 hours. Recent Labs 12/25/17 0550 12/23/17 0641 12/21/17 1018 CALCIUM 9.9 9.6 10.2 No results for input(s): PT, INR, PTT in the last 168 hours. No results for input(s): CK, TROPONINT in the last 168 hours. FSBG Trend No results for input(s): POCGLU in the last 72 hours. MICRO: No results for input(s): URINECULTURE in the last 720 hours. No results for input(s): GRAMSTAIN, BFCX, LOWERRESPCX, TISSUECX in the last 720 hours. No results for input(s): BLOODCX in the last 720 hours. ECG: Recent Labs 12/05/17 1729 DIAGLINE Sinus tachycardia Nonspecific ST/T wave abnormality Abnormal ECG When compared with ECG of 04-SEP-2017 22:30, Rate slower Confirmed by MD Oh, Sukhi Walker ([id number]) on 12/06/2017 10:46:47 AM QTCCALC 452 VASCULAR: No results for input(s): VBTEXTRPT in the last 720 hours. IMAGING: CT facial 10/20 IMPRESSION Multiple dental caries. Dental restorations limits resolution somewhat but no definite molar fracture can be seen. Consider Panorex of the mandible. CT pelvis MSK 09/03 IMPRESSION 1. Comminuted left acetabular fracture involving the medial wall with posttraumatic protrusio deformity. 2. The flat contour of the left femoral head is consistent with fracture. I do not however see displaced fracture typical the shear injury is seen in the setting. It is possible this base of the represent a compression of the femoral surface. 3. Pelvic hematoma. XR Pelvis 11/18 Impression 1. Unchanged ORIF of left acetabular fracture. 2. The fracture lines are better characterized on CT exam. XR knee, L 11/17 Impression No fracture or dislocation No large knee effusion. XR knee, R 12/25 Impression No fracture or dislocation OTHER Studies: Inpatient Medications: Scheduled ??? metoprolol succinate 25 mg Oral Daily ??? traZODone 50 mg Oral Nightly ??? desmopressin 0.05 mg Oral TID ??? acetaminophen 650 mg Oral TID ??? melatonin 9 mg Oral Nightly ??? QUEtiapine 250 mg Oral Nightly ??? levothyroxine 200 mcg Oral QAM ??? calcium carbonate 500 mg Oral Nightly ??? hydrocortisone 10 mg Oral Daily at Noon ??? senna-docusate 2 tablet Oral BID ??? testosterone 5 g Transdermal Nightly ??? methyl salicylate-menthol Topical (Top) BID ??? cholecalciferol (Vitamin D3) 1,000 Units Oral Daily ??? hydrocortisone 20 mg Oral QAM ??? pantoprazole 40 mg Oral QAM AC ??? 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 11/21 advanced to WBAT BLE with assistive device at all times. ?? Agitated behavior issues may be environmental with baseline agitation and lack of normal routine. ??De-escalated opioids as not clear pain is driving agitation - will still treat as if L leg pain is part of the issue but try to spare opioids with tylenol and ibuprofen as well now that he is a few months out from acetabular fx repair. Also consolidating sedating meds closer to bedtime to try to achieve better sleep at night. Otherwise try to get him out and about and stimulated/interacting during the day, and if there is something he normally likes to do at nursing home, then try to avail him of that here. Caregiver indicates that this is normal behavior for him. Plan: # Left acetabular fracture: Improved -s/p operative repair on 09/04/2017 and orthopedics advanced to WBAT BLE (11/21) -continue scheduled tylenol -continue prn ibuprofen ?? # Toxic metabolic encephalopathy on baseline cognitive impairment with past CVA/hemorrhage from pituitary surgery: -encephalopathy seems like it has resolved - his ongoing waxing/waning periods of restlessness and yelling/moaning loudly alternating with periods of relative calm are apparently normal per caregiver -continue quetiapine, trazodone, and melatonin at 8pm (his usual bed time per caregiver) -has additional quetiapine available prn agitation -try to get him active and stimulated during the day -check bladder scan PRN / CIC PRN -cont bowel regimen -out of net bed now ?? # 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 -decreased hydrocortisone from 20/10/10 to 20/10 per endocrine on 11/16 -increased synthroid to 200 mcg 11/23. ? -seizures managed with home zonisamide 200mg PO QHS per neurology.?? -treat DI as below ?? # DI, Hyponatremia and hypernatremia: sodium stable -outpt ddAVP dosing and fluid restriction are 0.05 mg tid and 3.2 L, respectively - continue these and monitor Na level periodically -appreciate Endocrine assistance; additional dose of DDAVP today given Na > 150, also encouragedto drink water today # Fractured left lower molar: -Likely occurred with seizure, no evidence of acute infection. Extraction to occur in non-urgent manner pending availability, but per dentistry, not likely anytime soon. ?? # Urinary retention: But appears to only be in the morning - closely monitor for now ?? IV access: none Tubes/Drains: none DVT PPX: SCD Anticipated Disposition: SNF Team Pager(MD Coverage 27/01): # [phone] PCP: NAKIA Cifuentes [phone] Attestation: IPI Certification I certify that I am a D-H credentialed attending provider with admitting privileges and that the patient meets or has met medical necessity to require an inpatient IPI level of care meeting a minimumof two midnights or is on the CMS inpatient only procedure list (status C) due to: the patient has met Inpatient IPI criteria and is awaiting rehabilitation or half-way facility placement withactive referrals in process José Miguel Maher MD 12/26/2017 * Debbie Keller, DT - 12/25/2017 3:36 PM EDT Nutrition Services - Follow-up Note Miguel Angel Judy Mason : 1990 AGE: 27 y.o. Patient Active Problem List Diagnosis Date Noted ??? *Hospital-S/P ORIF left acetabulum fracture 09/04/2017 Dr. Lance 09/02/2017 ??? Hospital-Acute urinary retention 12/09/2017 ??? Hospital-Diabetes insipidus 09/03/2017 Chronic ??? Hospital-Adrenal insufficiency 09/03/2017 ??? 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 Hospital-Seizure disorder 09/03/2017 ??? Insomnia 09/03/2017 ??? Blind 09/03/2017 ??? CVA (cerebral vascular accident) 09/03/2017 ??? Urinary incontinence 09/03/2017 ??? Hospital-Hypothyroidism 09/03/2017 Reason for Nutrition Intervention: Follow-up Diet Order: Regular Appetite: Good- per nursing Food allergies: NKFA Chewing/Swallowing difficulty: none noted- per nursing Ht Readings from Last 3 Encounters: 09/07/17 177.8 cm (5' 10) Wt Readings from Last 3 Encounters: 12/11/17 92.3 kg (203 lb 7.8 oz) Body mass index is 29.2 kg/(m^2). Vitamins/Minerals: Vitamin D3, Tums noted. Assessment: Patient seen for nutrition follow up. Nursing reported a good appetite stating, pt is eating great, with pt stating more, more. Nursing noted no difficulty chewing or swallowing. He is tolerating current diet without nausea or vomiting. Nursing stated pt consumed 100% PO intake of meals today. Pt receiving meal choices daily. Nursing had no nutrition concerns at this time. Please contact Food and Nutrition services with any questions that may arise. Nutrition will continue to follow. Nutrition Plan: Continue current diet. Dietary to send menu daily. No standard trays. Cut all foods. Recommend Daily Multi Vitamins. Snack- fruit cup at mid-morning and afternoon snack. Encourage good po intake. Monitor weight. Support and encouragement provided. Nutrition services to follow thru hospital course unless consulted in the interim. ADAM Kaur * José Miguel Maher MD - 12/25/2017 8:49 AM EDT Hospital Medicine Attending Daily Progress Note Admit Date: 09/02/2017 Hospital Day 114 days Active Hospital Problems Diagnosis ??? S/P ORIF left acetabulum fracture 09/04/2017 Dr. Lance ??? Acute urinary retention ??? Diabetes insipidus ??? Adrenal insufficiency ??? Panhypopituitarism ??? Seizure disorder ??? Hypothyroidism Resolved Hospital Problems Diagnosis Date Resolved ??? Postoperative anemia due to acute blood loss 12/09/2017 [facility] Active Non-Hospital Problems Diagnosis ??? Insomnia ??? Blind ??? CVA (cerebral vascular accident) ??? Urinary incontinence Interval History: - Oriented to self - Intermittently agitated - Sitter at bedside - Incontinent ROS: Unable to obtain Physical Exam Vitals Range last 24 hrs Temperature Temp: [36.2 ??C (97.2 ??F)-36.5 ??C (97.7 ??F)] Heart Rate Heart Rate: [97-112] Blood Pressure BP: (119-152)/(69-93) Respiratory Rate Resp: [16-18] SpO2 SpO2: [98 %-100 %] Intake/Output Summary (Last 24 hours) at 12/25/17 1405 Last data filed at 12/25/17 0900 Gross per 24 hour Intake 2385 ml Output 1775 ml Net 610 ml No data found. Body mass index is 29.2 kg/(m^2). Estimated Creatinine Clearance: 201 mL/min (based on Cr of 0.63). CONSTITUTIONAL: awake, alert, not in acute distress HEENT: PERRLA, EOMI, (-) JVD (-) thyromegaly CHEST: RRR, (-) murmur LUNGS: SCE, resonant to percussion, (-) wheeze, (-) crackles ABDOMEN: soft, NABS, (-) tenderness, (-) hepatomegaly, (-) splenomegaly EXTREMITIES: (-) edema, pulses full and equal SKIN: moist, (-) rash Studies reviewed in eDH. Remarkable for the following: LABS: Recent Labs 12/25/17 0550 12/23/17 0641 12/21/17 1018 WBC 4.9 4.8 8.3 HGB 11.9* 10.6* 12.5* HCT 36.4* 34.7* 40.5 PLATELET 313 286 333 Recent Labs 12/25/17 0550 12/24/17 0019 12/23/17 0641 12/21/17 1018 NA 149* 147* 149* < > 147* K 3.6 -- 4.0 -- 4.2 CL 108* -- 111* -- 109* CO2 25 -- 24 -- 22 BUN 14 -- 14 -- 15 CREATININE 0.63* -- 0.61* -- 0.82 < > = values in this interval not displayed. No results for input(s): AST, ALT, ALKPHOS, BILITOT, BILIDIR in the last 168 hours. Recent Labs 12/25/17 0550 12/23/17 0641 12/21/17 1018 CALCIUM 9.9 9.6 10.2 No results for input(s): PT, INR, PTT in the last 168 hours. No results for input(s): CK, TROPONINT in the last 168 hours. FSBG Trend No results for input(s): POCGLU in the last 72 hours. MICRO: No results for input(s): URINECULTURE in the last 720 hours. No results for input(s): GRAMSTAIN, BFCX, LOWERRESPCX, TISSUECX in the last 720 hours. No results for input(s): BLOODCX in the last 720 hours. ECG: Recent Labs 12/05/17 1729 DIAGLINE Sinus tachycardia Nonspecific ST/T wave abnormality Abnormal ECG When compared with ECG of 04-SEP-2017 22:30, Rate slower Confirmed by MD Oh, Sukhi Walker ([id number]) on 12/06/2017 10:46:47 AM QTCCALC 452 VASCULAR: No results for input(s): VBTEXTRPT in the last 720 hours. IMAGING: CT facial 10/20 IMPRESSION Multiple dental caries. Dental restorations limits resolution somewhat but no definite molar fracture can be seen. Consider Panorex of the mandible. CT pelvis MSK 09/03 IMPRESSION 1. Comminuted left acetabular fracture involving the medial wall with posttraumatic protrusio deformity. 2. The flat contour of the left femoral head is consistent with fracture. I do not however see displaced fracture typical the shear injury is seen in the setting. It is possible this base of the represent a compression of the femoral surface. 3. Pelvic hematoma. XR Pelvis 11/18 Impression 1. Unchanged ORIF of left acetabular fracture. 2. The fracture lines are better characterized on CT exam. XR knee, L 11/17 Impression No fracture or dislocation No large knee effusion. OTHER Studies: Inpatient Medications: Scheduled ??? metoprolol succinate 25 mg Oral Daily ??? traZODone 50 mg Oral Nightly ??? desmopressin 0.05 mg Oral TID ??? acetaminophen 650 mg Oral TID ??? melatonin 9 mg Oral Nightly ??? QUEtiapine 250 mg Oral Nightly ??? levothyroxine 200 mcg Oral QAM ??? calcium carbonate 500 mg Oral Nightly ??? hydrocortisone 10 mg Oral Daily at Noon ??? senna-docusate 2 tablet Oral BID ??? testosterone 5 g Transdermal Nightly ??? methyl salicylate-menthol Topical (Top) BID ??? cholecalciferol (Vitamin D3) 1,000 Units Oral Daily ??? hydrocortisone 20 mg Oral QAM ??? pantoprazole 40 mg Oral QAM AC ??? 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 11/21 advanced to WBAT BLE with assistive device at all times. ?? Agitated behavior issues may be environmental with baseline agitation and lack of normal routine. ??De-escalated opioids as not clear pain is driving agitation - will still treat as if L leg pain is part of the issue but try to spare opioids with tylenol and ibuprofen as well now that he is a few months out from acetabular fx repair. Also consolidating sedating meds closer to bedtime to try to achieve better sleep at night. Otherwise try to get him out and about and stimulated/interacting during the day, and if there is something he normally likes to do at nursing home, then try to avail him of that here. Caregiver indicates that this is normal behavior for him. Plan: # Left acetabular fracture: Improved -s/p operative repair on 09/04/2017 and orthopedics advanced to WBAT BLE (11/21) -continue scheduled tylenol -continue prn ibuprofen ?? # Toxic metabolic encephalopathy on baseline cognitive impairment with past CVA/hemorrhage from pituitary surgery: -encephalopathy seems like it has resolved - his ongoing waxing/waning periods of restlessness and yelling/moaning loudly alternating with periods of relative calm are apparently normal per caregiver -continue quetiapine, trazodone, and melatonin at 8pm (his usual bed time per caregiver) -has additional quetiapine available prn agitation -try to get him active and stimulated during the day -check bladder scan PRN / CIC PRN -cont bowel regimen -out of net bed now ?? # 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 -decreased hydrocortisone from 20// to 20/10 per endocrine on 11/16 -increased synthroid to 200 mcg 11/23. ? -seizures managed with home zonisamide 200mg PO QHS per neurology.?? -treat DI as below ?? # DI, Hyponatremia and hypernatremia: sodium stable -outpt ddAVP dosing and fluid restriction are 0.05 mg tid and 3.2 L, respectively - continue these and monitor Na level periodically -appreciate Endocrine assistance; may consider additional dose of DDAVP if Na > 150 # Fractured left lower molar: -Likely occurred with seizure, no evidence of acute infection. Extraction to occur in non-urgent manner pending availability, but per dentistry, not likely anytime soon. ?? # Urinary retention: But appears to only be in the morning - closely monitor for now ?? IV access: none Tubes/Drains: none DVT PPX: SCD Anticipated Disposition: SNF Team Pager( Coverage 27/01): # [phone] PCP: NAKIA Cifuentes [phone] Attestation: IPI Certification I certify that I am a D-H credentialed attending provider with admitting privileges and that the patient meets or has met medical necessity to require an inpatient IPI level of care meeting a minimumof two midnights or is on the CMS inpatient only procedure list (status C) due to: the patient has met Inpatient IPI criteria and is awaiting rehabilitation or half-way facility placement withactive referrals in process José Miguel Maher MD 12/25/2017 * José Miguel Maher MD - 12/24/2017 12:52 PM EDT Hospital Medicine Attending Daily Progress Note Admit Date: 09/02/2017 Hospital Day 113 days Active Hospital Problems Diagnosis ??? S/P ORIF left acetabulum fracture 09/04/2017 Dr. Lance ??? Acute urinary retention ??? Diabetes insipidus ??? Adrenal insufficiency ??? Panhypopituitarism ??? Seizure disorder ??? Hypothyroidism Resolved Hospital Problems Diagnosis Date Resolved ??? Postoperative anemia due to acute blood loss 12/09/2017 H Active Non-Hospital Problems Diagnosis ??? Insomnia ??? Blind ??? CVA (cerebral vascular accident) ??? Urinary incontinence Interval History: - Intermittently agitated - Sitter at bedside - Incontinent - Slept well after large BM overnight ROS: Unable to obtain Physical Exam Vitals Range last 24 hrs Temperature Temp: [36.5 ??C (97.7 ??F)-36.7 ??C (98 ??F)] Heart Rate Heart Rate: [95-100] Blood Pressure BP: (126-144)/(77-90) Respiratory Rate Resp: [16-20] SpO2 SpO2: [93 %-98 %] Intake/Output Summary (Last 24 hours) at 12/24/17 1452 Last data filed at 12/24/17 1356 Gross per 24 hour Intake 1955 ml Output 1400 ml Net 555 ml No data found. Body mass index is 29.2 kg/(m^2). Estimated Creatinine Clearance: 207.6 mL/min (based on Cr of 0.61). CONSTITUTIONAL: awake, alert, not in acute distress HEENT: PERRLA, EOMI, (-) JVD (-) thyromegaly CHEST: RRR, (-) murmur LUNGS: SCE, resonant to percussion, (-) wheeze, (-) crackles ABDOMEN: soft, NABS, (-) tenderness, (-) hepatomegaly, (-) splenomegaly EXTREMITIES: (-) edema, pulses full and equal SKIN: moist, (-) rash Studies reviewed in eDH. Remarkable for the following: LABS: Recent Labs 12/23/17 0641 12/21/17 1018 WBC 4.8 8.3 HGB 10.6* 12.5* HCT 34.7* 40.5 PLATELET 286 333 Recent Labs 12/24/17 0019 12/23/17 0641 12/21/17 2000 12/21/17 1018 NA 147* 149* 143 147* K -- 4.0 -- 4.2 CL -- 111* -- 109* CO2 -- 24 -- 22 BUN -- 14 -- 15 CREATININE -- 0.61* -- 0.82 No results for input(s): AST, ALT, ALKPHOS, BILITOT, BILIDIR in the last 168 hours. Recent Labs 12/23/17 0641 12/21/17 1018 CALCIUM 9.6 10.2 No results for input(s): PT, INR, PTT in the last 168 hours. No results for input(s): CK, TROPONINT in the last 168 hours. FSBG Trend No results for input(s): POCGLU in the last 72 hours. MICRO: No results for input(s): URINECULTURE in the last 720 hours. No results for input(s): GRAMSTAIN, BFCX, LOWERRESPCX, TISSUECX in the last 720 hours. No results for input(s): BLOODCX in the last 720 hours. ECG: Recent Labs 12/05/17 1729 DIAGLINE Sinus tachycardia Nonspecific ST/T wave abnormality Abnormal ECG When compared with ECG of 04-SEP-2017 22:30, Rate slower Confirmed by MD Oh, Sukhi Walker ([id number]) on 12/06/2017 10:46:47 AM QTCCALC 452 VASCULAR: No results for input(s): VBTEXTRPT in the last 720 hours. IMAGING: CT facial 10/20 IMPRESSION Multiple dental caries. Dental restorations limits resolution somewhat but no definite molar fracture can be seen. Consider Panorex of the mandible. CT pelvis MSK 09/03 IMPRESSION 1. Comminuted left acetabular fracture involving the medial wall with posttraumatic protrusio deformity. 2. The flat contour of the left femoral head is consistent with fracture. I do not however see displaced fracture typical the shear injury is seen in the setting. It is possible this base of the represent a compression of the femoral surface. 3. Pelvic hematoma. XR Pelvis 11/18 Impression 1. Unchanged ORIF of left acetabular fracture. 2. The fracture lines are better characterized on CT exam. XR knee, L 11/17 Impression No fracture or dislocation No large knee effusion. OTHER Studies: Inpatient Medications: Scheduled ??? metoprolol succinate 25 mg Oral Daily ??? traZODone 50 mg Oral Nightly ??? desmopressin 0.05 mg Oral TID ??? acetaminophen 650 mg Oral TID ??? melatonin 9 mg Oral Nightly ??? QUEtiapine 250 mg Oral Nightly ??? levothyroxine 200 mcg Oral QAM ??? calcium carbonate 500 mg Oral Nightly ??? hydrocortisone 10 mg Oral Daily at Noon ??? senna-docusate 2 tablet Oral BID ??? testosterone 5 g Transdermal Nightly ??? methyl salicylate-menthol Topical (Top) BID ??? cholecalciferol (Vitamin D3) 1,000 Units Oral Daily ??? hydrocortisone 20 mg Oral QAM ??? pantoprazole 40 mg Oral QAM AC ??? 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 11/21 advanced to WBAT BLE with assistive device at all times. ?? Agitated behavior issues may be environmental with baseline agitation and lack of normal routine. ??De-escalated opioids as not clear pain is driving agitation - will still treat as if L leg pain is part of the issue but try to spare opioids with tylenol and ibuprofen as well now that he is a few months out from acetabular fx repair. Also consolidating sedating meds closer to bedtime to try to achieve better sleep at night. Otherwise try to get him out and about and stimulated/interacting during the day, and if there is something he normally likes to do at nursing home, then try to avail him of that here. Caregiver indicates that this is normal behavior for him. Plan: # Left acetabular fracture: Improved -s/p operative repair on 09/04/2017 and orthopedics advanced to WBAT BLE (11/21) -continue scheduled tylenol -continue prn ibuprofen ?? # Toxic metabolic encephalopathy on baseline cognitive impairment with past CVA/hemorrhage from pituitary surgery: -encephalopathy seems like it has resolved - his ongoing waxing/waning periods of restlessness and yelling/moaning loudly alternating with periods of relative calm are apparently normal per caregiver -continue quetiapine, trazodone, and melatonin at 8pm (his usual bed time per caregiver) -has additional quetiapine available prn agitation -try to get him active and stimulated during the day -check bladder scan PRN / CIC PRN -cont bowel regimen -out of net bed now ?? # 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 -decreased hydrocortisone from 25/04/10 to 25/04 per endocrine on 11/16 -increased synthroid to 200 mcg 11/23. ? -seizures managed with home zonisamide 200mg PO QHS per neurology.?? -treat DI as below ?? # DI, Hyponatremia and hypernatremia: sodium stable -outpt ddAVP dosing and fluid restriction are 0.05 mg tid and 3.2 L, respectively - continue these and monitor Na level periodically -appreciate Endocrine assistance; may consider additional dose of DDAVP if Na > 150 # Fractured left lower molar: -Likely occurred with seizure, no evidence of acute infection. Extraction to occur in non-urgent manner pending availability, but per dentistry, not likely anytime soon. ?? # Urinary retention: But appears to only be in the morning - closely monitor for now ?? IV access: none Tubes/Drains: none DVT PPX: SCD Anticipated Disposition: SNF Team Pager( Coverage 27/01): # [phone] PCP: NAKIA Cifuentes [phone] Attestation: IPI Certification I certify that I am a D-H credentialed attending provider with admitting privileges and that the patient meets or has met medical necessity to require an inpatient IPI level of care meeting a minimumof two midnights or is on the CMS inpatient only procedure list (status C) due to: the patient has met Inpatient IPI criteria and is awaiting rehabilitation or half-way facility placement withactive referrals in process José Miguel Maher MD 12/24/2017 * Tricia Gerber RN - 12/24/2017 11:13 AM EDT Case reviewed in eDH and with interdisciplinary team. Patient being reviewed for placement at [facility]. Placement is currently on hold due to lack of sitter. Spoke with nursing home director Lali [phone]. [facility] has been providing sitter for patient during daytime hours. She asked if they could withdraw sitter as [facility] is also providing a sitter at all times. Informed her of plan for transition to [facility]. She reports that [facility] is too far to send nursing home sitters up there. She stated that [facility] has made an agreement with [facility] for rehab there. Land Agent spoke with [facility] liaison who stated they have not accepted him as [facility] a [facility]. Left voice mail for Allison Mojica ([facility] [employer] Administrator) [phone]. Request call back with update of [facility] plans for placement. Case management will continue to follow and assist with discharge planning needs. Tricia Gerber RN Case Homemaker Companion of Care Management [email or web address] Pager: [phone] * Tricia Gerber RN - 12/23/2017 3:48 PM EDT Case reviewed with interdisciplinary team. Patient continues to be medically ready. Plan is for possible transfer to [facility]. Per note from [facility] transfer is currently still on hold as we do not have designated sitters. Patient has required 1-2 sitters while in hospital. One is provided by [facility] and the other is provided by [facility]. Case management will continue to follow. Tricia Gerber RN Case Homemaker Companion of Care Management [email or web address] Pager: [phone] * José Miguel Maher MD - 12/23/2017 8:41 AM EDT Hospital Medicine Attending Daily Progress Note Admit Date: 09/02/2017 Hospital Day 112 days Active Hospital Problems Diagnosis ??? S/P ORIF left acetabulum fracture 09/04/2017 Dr. Lance ??? Acute urinary retention ??? Diabetes insipidus ??? Adrenal insufficiency ??? Panhypopituitarism ??? Seizure disorder ??? Hypothyroidism Resolved Hospital Problems Diagnosis Date Resolved ??? Postoperative anemia due to acute blood loss 12/09/2017 H Active Non-Hospital Problems Diagnosis ??? Insomnia ??? Blind ??? CVA (cerebral vascular accident) ??? Urinary incontinence Interval History: - Intermittently agitated - Sitter at bedside - Incontinent - Refusing repeat lab draw ROS: Unable to obtain Physical Exam Vitals Range last 24 hrs Temperature Temp: [36.6 ??C (97.9 ??F)-37 ??C (98.6 ??F)] Heart Rate Heart Rate: [94-101] Blood Pressure BP: (132-141)/(72-78) Respiratory Rate Resp: [17-22] SpO2 SpO2: [94 %-97 %] Intake/Output Summary (Last 24 hours) at 12/23/17 0841 Last data filed at 12/22/17 2130 Gross per 24 hour Intake 2390 ml Output 300 ml Net 2090 ml No data found. Body mass index is 29.2 kg/(m^2). Estimated Creatinine Clearance: 207.6 mL/min (based on Cr of 0.61). CONSTITUTIONAL: awake, alert, not in acute distress HEENT: PERRLA, EOMI, (-) JVD (-) thyromegaly CHEST: RRR, (-) murmur LUNGS: SCE, resonant to percussion, (-) wheeze, (-) crackles ABDOMEN: soft, NABS, (-) tenderness, (-) hepatomegaly, (-) splenomegaly EXTREMITIES: (-) edema, pulses full and equal SKIN: moist, (-) rash Studies reviewed in eDH. Remarkable for the following: LABS: Recent Labs 12/23/17 0641 12/21/17 1018 WBC 4.8 8.3 HGB 10.6* 12.5* HCT 34.7* 40.5 PLATELET 286 333 Recent Labs 12/23/17 0641 12/21/17199912/21/17 1018 12/16/17 0901 NA 149* 143 147* 143 K 4.0 -- 4.2 3.8 CL 111* -- 109* 103 CO2 24 -- 22 23 BUN 14 -- 15 -- CREATININE 0.61* -- 0.82 -- No results for input(s): AST, ALT, ALKPHOS, BILITOT, BILIDIR in the last 168 hours. Recent Labs 12/23/17 0641 12/21/17 1018 CALCIUM 9.6 10.2 No results for input(s): PT, INR, PTT in the last 168 hours. No results for input(s): CK, TROPONINT in the last 168 hours. FSBG Trend No results for input(s): POCGLU in the last 72 hours. MICRO: No results for input(s): URINECULTURE in the last 720 hours. No results for input(s): GRAMSTAIN, BFCX, LOWERRESPCX, TISSUECX in the last 720 hours. No results for input(s): BLOODCX in the last 720 hours. ECG: Recent Labs 12/05/17 1729 DIAGLINE Sinus tachycardia Nonspecific ST/T wave abnormality Abnormal ECG When compared with ECG of 04-SEP-2017 22:30, Rate slower Confirmed by MD Oh, Sukhi Walker ([id number]) on 12/06/2017 10:46:47 AM QTCCALC 452 VASCULAR: No results for input(s): VBTEXTRPT in the last 720 hours. IMAGING: CT facial 10/20 IMPRESSION Multiple dental caries. Dental restorations limits resolution somewhat but no definite molar fracture can be seen. Consider Panorex of the mandible. CT pelvis MSK 09/03 IMPRESSION 1. Comminuted left acetabular fracture involving the medial wall with posttraumatic protrusio deformity. 2. The flat contour of the left femoral head is consistent with fracture. I do not however see displaced fracture typical the shear injury is seen in the setting. It is possible this base of the represent a compression of the femoral surface. 3. Pelvic hematoma. XR Pelvis 11/18 Impression 1. Unchanged ORIF of left acetabular fracture. 2. The fracture lines are better characterized on CT exam. XR knee, L 11/17 Impression No fracture or dislocation No large knee effusion. OTHER Studies: Inpatient Medications: Scheduled ??? metoprolol succinate 25 mg Oral Daily ??? traZODone 50 mg Oral Nightly ??? desmopressin 0.05 mg Oral TID ??? acetaminophen 650 mg Oral TID ??? melatonin 9 mg Oral Nightly ??? QUEtiapine 250 mg Oral Nightly ??? levothyroxine 200 mcg Oral QAM ??? calcium carbonate 500 mg Oral Nightly ??? hydrocortisone 10 mg Oral Daily at Noon ??? senna-docusate 2 tablet Oral BID ??? testosterone 5 g Transdermal Nightly ??? methyl salicylate-menthol Topical (Top) BID ??? cholecalciferol (Vitamin D3) 1,000 Units Oral Daily ??? hydrocortisone 20 mg Oral QAM ??? pantoprazole 40 mg Oral QAM AC ??? 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 11/21 advanced to WBAT BLE with assistive device at all times. ?? Agitated behavior issues may be environmental with baseline agitation and lack of normal routine. ??De-escalated opioids as not clear pain is driving agitation - will still treat as if L leg pain is part of the issue but try to spare opioids with tylenol and ibuprofen as well now that he is a few months out from acetabular fx repair. Also consolidating sedating meds closer to bedtime to try to achieve better sleep at night. Otherwise try to get him out and about and stimulated/interacting during the day, and if there is something he normally likes to do at nursing home, then try to avail him of that here. Caregiver indicates that this is normal behavior for him. Plan: # Left acetabular fracture: Improved -s/p operative repair on 09/04/2017 and orthopedics advanced to WBAT BLE (11/21) -continue scheduled tylenol -continue prn ibuprofen ?? # Toxic metabolic encephalopathy on baseline cognitive impairment with past CVA/hemorrhage from pituitary surgery: -encephalopathy seems like it has resolved - his ongoing waxing/waning periods of restlessness and yelling/moaning loudly alternating with periods of relative calm are apparently normal per caregiver -continue quetiapine, trazodone, and melatonin at 8pm (his usual bed time per caregiver) -has additional quetiapine available prn agitation -try to get him active and stimulated during the day -check bladder scan PRN / CIC PRN -cont bowel regimen -out of net bed now ?? # 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 -decreased hydrocortisone from 20//10 to 20/10 per endocrine on 11/16 -increased synthroid to 200 mcg 11/23. ? -seizures managed with home zonisamide 200mg PO QHS per neurology.?? -treat DI as below ?? # DI, Hyponatremia and hypernatremia: sodium stable -outpt ddAVP dosing and fluid restriction are 0.05 mg tid and 3.2 L, respectively - continue these and monitor Na level periodically -appreciate Endocrine assistance; may consider additional dose of DDAVP if Na > 150 # Fractured left lower molar: -Likely occurred with seizure, no evidence of acute infection. Extraction to occur in non-urgent manner pending availability, but per dentistry, not likely anytime soon. ?? # Urinary retention: But appears to only be in the morning - closely monitor for now ?? IV access: none Tubes/Drains: none DVT PPX: SCD Anticipated Disposition: SNF Team Pager( Coverage 27/01): # [phone] PCP: NAKIA Cifuentes [phone] Attestation: IPI Certification I certify that I am a D-H credentialed attending provider with admitting privileges and that the patient meets or has met medical necessity to require an inpatient IPI level of care meeting a minimumof two midnights or is on the CMS inpatient only procedure list (status C) due to: the patient has met Inpatient IPI criteria and is awaiting rehabilitation or half-way facility placement withactive referrals in process José Miguel Maher MD 12/23/2017 * José Miguel Maher MD - 12/22/2017 11:28 AM EDT Hospital Medicine Attending Daily Progress Note Admit Date: 09/02/2017 Hospital Day 111 days Active Hospital Problems Diagnosis ??? S/P ORIF left acetabulum fracture 09/04/2017 Dr. Lance ??? Acute urinary retention ??? Diabetes insipidus ??? Adrenal insufficiency ??? Panhypopituitarism ??? Seizure disorder ??? Hypothyroidism Resolved Hospital Problems Diagnosis Date Resolved ??? Postoperative anemia due to acute blood loss 12/09/2017 PMH Active Non-Hospital Problems Diagnosis ??? Insomnia ??? Blind ??? CVA (cerebral vascular accident) ??? Urinary incontinence Interval History: - Intermittently agitated - Sitter at bedside ROS: No fever, anorexia No cough, shortness of breath No chest pain, palpitation No abdominal pain, N/V No hematuria, dysuria Physical Exam Vitals Range last 24 hrs Temperature Temp: [36.5 ??C (97.7 ??F)-37.1 ??C (98.8 ??F)] Heart Rate Heart Rate: [104-118] Blood Pressure BP: (133-147)/(71-84) Respiratory Rate Resp: [16-22] SpO2 SpO2: [97 %-98 %] Intake/Output Summary (Last 24 hours) at 12/22/17 1128 Last data filed at 12/22/17 1105 Gross per 24 hour Intake 360 ml Output 1150 ml Net -790 ml No data found. Body mass index is 29.2 kg/(m^2). Estimated Creatinine Clearance: 154.5 mL/min (based on Cr of 0.82). CONSTITUTIONAL: awake, alert, not in acute distress HEENT: PERRLA, EOMI, (-) JVD (-) thyromegaly CHEST: RRR, (-) murmur LUNGS: SCE, resonant to percussion, (-) wheeze, (-) crackles ABDOMEN: soft, NABS, (-) tenderness, (-) hepatomegaly, (-) splenomegaly EXTREMITIES: (-) edema, pulses full and equal SKIN: moist, (-) rash Studies reviewed in eDH. Remarkable for the following: LABS: Recent Labs 12/21/17 1018 WBC 8.3 HGB 12.5* HCT 40.5 PLATELET 333 Recent Labs 12/21/17 2000 12/21/17 1018 12/16/17 0901 NA 143 147* 143 K -- 4.2 3.8 CL -- 109* 103 CO2 -- 22 23 BUN -- 15 -- CREATININE -- 0.82 -- No results for input(s): AST, ALT, ALKPHOS, BILITOT, BILIDIR in the last 168 hours. Recent Labs 12/21/17 1018 CALCIUM 10.2 No results for input(s): PT, INR, PTT in the last 168 hours. No results for input(s): CK, TROPONINT in the last 168 hours. FSBG Trend No results for input(s): POCGLU in the last 72 hours. MICRO: No results for input(s): URINECULTURE in the last 720 hours. No results for input(s): GRAMSTAIN, BFCX, LOWERRESPCX, TISSUECX in the last 720 hours. No results for input(s): BLOODCX in the last 720 hours. ECG: Recent Labs 12/05/17 1729 DIAGLINE Sinus tachycardia Nonspecific ST/T wave abnormality Abnormal ECG When compared with ECG of 04-SEP-2017 22:30, Rate slower Confirmed by MD Oh, Sukhi Walker ([id number]) on 12/06/2017 10:46:47 AM QTCCALC 452 VASCULAR: No results for input(s): VBTEXTRPT in the last 720 hours. IMAGING: CT facial 10/20 IMPRESSION Multiple dental caries. Dental restorations limits resolution somewhat but no definite molar fracture can be seen. Consider Panorex of the mandible. CT pelvis MSK 09/03 IMPRESSION 1. Comminuted left acetabular fracture involving the medial wall with posttraumatic protrusio deformity. 2. The flat contour of the left femoral head is consistent with fracture. I do not however see displaced fracture typical the shear injury is seen in the setting. It is possible this base of the represent a compression of the femoral surface. 3. Pelvic hematoma. XR Pelvis 11/18 Impression 1. Unchanged ORIF of left acetabular fracture. 2. The fracture lines are better characterized on CT exam. XR knee, L 11/17 Impression No fracture or dislocation No large knee effusion. OTHER Studies: Inpatient Medications: Scheduled ??? metoprolol succinate 25 mg Oral Daily ??? traZODone 50 mg Oral Nightly ??? desmopressin 0.05 mg Oral TID ??? acetaminophen 650 mg Oral TID ??? melatonin 9 mg Oral Nightly ??? QUEtiapine 250 mg Oral Nightly ??? levothyroxine 200 mcg Oral QAM ??? calcium carbonate 500 mg Oral Nightly ??? hydrocortisone 10 mg Oral Daily at Noon ??? senna-docusate 2 tablet Oral BID ??? testosterone 5 g Transdermal Nightly ??? methyl salicylate-menthol Topical (Top) BID ??? cholecalciferol (Vitamin D3) 1,000 Units Oral Daily ??? hydrocortisone 20 mg Oral QAM ??? pantoprazole 40 mg Oral QAM AC ??? 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 11/21 advanced to WBAT BLE with assistive device at all times. ?? Agitated behavior issues may be environmental with baseline agitation and lack of normal routine. ??De-escalated opioids as not clear pain is driving agitation - will still treat as if L leg pain is part of the issue but try to spare opioids with tylenol and ibuprofen as well now that he is a few months out from acetabular fx repair. Also consolidating sedating meds closer to bedtime to try to achieve better sleep at night. Otherwise try to get him out and about and stimulated/interacting during the day, and if there is something he normally likes to do at nursing home, then try to avail him of that here. Caregiver indicates that this is normal behavior for him. Plan: # Left acetabular fracture: Improved -s/p operative repair on 09/04/2017 and orthopedics advanced to WBAT BLE (11/21) -continue scheduled tylenol -continue prn ibuprofen ?? # Toxic metabolic encephalopathy on baseline cognitive impairment with past CVA/hemorrhage from pituitary surgery: -encephalopathy seems like it has resolved - his ongoing waxing/waning periods of restlessness and yelling/moaning loudly alternating with periods of relative calm are apparently normal per caregiver -continue quetiapine, trazodone, and melatonin at 8pm (his usual bed time per caregiver) -has additional quetiapine available prn agitation -try to get him active and stimulated during the day -check bladder scan PRN / CIC PRN -cont bowel regimen -out of net bed now ?? # 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 -decreased hydrocortisone from 20/10/10 to 20/10 per endocrine on 11/16 -increased synthroid to 200 mcg 11/23. ? -seizures managed with home zonisamide 200mg PO QHS per neurology.?? -treat DI as below ?? # DI, Hyponatremia and hypernatremia: sodium stable -outpt ddAVP dosing and fluid restriction are 0.05 mg tid and 3.2 L, respectively - continue these and monitor Na level periodically -appreciate Endocrine assistance # Fractured left lower molar: -Likely occurred with seizure, no evidence of acute infection. Extraction to occur in non-urgent manner pending availability, but per dentistry, not likely anytime soon. ?? # Urinary retention: But appears to only be in the morning - closely monitor for now ?? IV access: none Tubes/Drains: none DVT PPX: SCD Anticipated Disposition: SNF Team Pager( Coverage 27/01): # [phone] PCP: NAKIA Cifuentes [phone] Attestation: IPI Certification I certify that I am a D-H credentialed attending provider with admitting privileges and that the patient meets or has met medical necessity to require an inpatient IPI level of care meeting a minimumof two midnights or is on the [facility] inpatient only procedure list (status C) due to: the patient has met Inpatient IPI criteria and is awaiting rehabilitation or half-way facility placement withactive referrals in process José Miguel Maher MD 12/22/2017 * Tricia Gerber RN - 12/22/2017 11:18 AM EDT Based on discussions with the multi-disciplinary healthcare team, the patient would benefit from SNF level of care at discharge. ?? I have met with the patient/insurance sales representative to discuss discharge planning needs. I have provided the [facility], Office of Care Management letter from the [employer] pertaining to rehab referrals. I have also provided a letter describing our affiliations within the [facility] and educated them about their right to choose where referrals are placed. ?? I reviewed the different levels of rehab including SNF, swing, acute and LTAC with the patient/insurance sales representative. ?? The patient/insurance sales representative has been provided a list of facilities within their preferred geographic area. ?? I have requested that the patient/insurance sales representative provide at least three choices for referral. ?? The patient/insurance sales representative have requested referrals to: 1. [facility] ([facility] [address] [place] [address] ?? [phone] ? Expected date of discharge: Medically ready Note routed to Audit Director who will communicate referrals to facilities and provide any required information. * José Miguel Maher MD - 12/21/2017 8:43 AM EDT Hospital Medicine Attending Daily Progress Note Admit Date: 09/02/2017 Hospital Day 110 days Active Hospital Problems Diagnosis ??? S/P ORIF left acetabulum fracture 09/04/2017 Dr. Lance ??? Acute urinary retention ??? Diabetes insipidus ??? Adrenal insufficiency ??? Panhypopituitarism ??? Seizure disorder ??? Hypothyroidism Resolved Hospital Problems Diagnosis Date Resolved ??? Postoperative anemia due to acute blood loss 12/09/2017 PM Active Non-Hospital Problems Diagnosis ??? Insomnia ??? Blind ??? CVA (cerebral vascular accident) ??? Urinary incontinence Interval History: - Agitated - Na 147 ROS: No fever, anorexia No cough, shortness of breath No chest pain, palpitation No abdominal pain, N/V No hematuria, dysuria Physical Exam Vitals Range last 24 hrs Temperature Temp: [36.4 ??C (97.5 ??F)-36.7 ??C (98.1 ??F)] Heart Rate Heart Rate: [109-114] Blood Pressure BP: (113-139)/(66-88) Respiratory Rate Resp: [18-20] SpO2 SpO2: [98 %-99 %] Intake/Output Summary (Last 24 hours) at 12/21/17 0843 Last data filed at 12/21/17 0819 Gross per 24 hour Intake 1300 ml Output 1475 ml Net -175 ml No data found. Body mass index is 29.2 kg/(m^2). Estimated Creatinine Clearance: 147.3 mL/min (based on Cr of 0.86). CONSTITUTIONAL: awake, alert, not in acute distress HEENT: PERRLA, EOMI, (-) JVD (-) thyromegaly CHEST: RRR, (-) murmur LUNGS: SCE, resonant to percussion, (-) wheeze, (-) crackles ABDOMEN: soft, NABS, (-) tenderness, (-) hepatomegaly, (-) splenomegaly EXTREMITIES: (-) edema, pulses full and equal SKIN: moist, (-) rash Studies reviewed in eDH. Remarkable for the following: LABS: No results for input(s): WBC, HGB, HCT, PLATELET in the last 168 hours. Recent Labs 12/16/17 0901 12/14/17 1809 NA 143 145 K 3.8 4.1 CL 103 105 CO2 23 21* BUN -- 11 CREATININE -- 0.86 No results for input(s): AST, ALT, ALKPHOS, BILITOT, BILIDIR in the last 168 hours. Recent Labs 12/14/17 1809 CALCIUM 8.9 No results for input(s): PT, INR, PTT in the last 168 hours. No results for input(s): CK, TROPONINT in the last 168 hours. FSBG Trend No results for input(s): POCGLU in the last 72 hours. MICRO: No results for input(s): URINECULTURE in the last 720 hours. No results for input(s): GRAMSTAIN, BFCX, LOWERRESPCX, TISSUECX in the last 720 hours. No results for input(s): BLOODCX in the last 720 hours. ECG: Recent Labs 12/05/17 1729 DIAGLINE Sinus tachycardia Nonspecific ST/T wave abnormality Abnormal ECG When compared with ECG of 04-SEP-2017 22:30, Rate slower Confirmed by MD Oh, Sukhi Walker ([id number]) on 12/06/2017 10:46:47 AM QTCCALC 452 VASCULAR: No results for input(s): VBTEXTRPT in the last 720 hours. IMAGING: CT facial 10/20 IMPRESSION Multiple dental caries. Dental restorations limits resolution somewhat but no definite molar fracture can be seen. Consider Panorex of the mandible. CT pelvis MSK 09/03 IMPRESSION 1. Comminuted left acetabular fracture involving the medial wall with posttraumatic protrusio deformity. 2. The flat contour of the left femoral head is consistent with fracture. I do not however see displaced fracture typical the shear injury is seen in the setting. It is possible this base of the represent a compression of the femoral surface. 3. Pelvic hematoma. XR Pelvis 11/18 Impression 1. Unchanged ORIF of left acetabular fracture. 2. The fracture lines are better characterized on CT exam. XR knee, L 11/17 Impression No fracture or dislocation No large knee effusion. OTHER Studies: Inpatient Medications: Scheduled ??? metoprolol succinate 25 mg Oral Daily ??? traZODone 50 mg Oral Nightly ??? desmopressin 0.05 mg Oral TID ??? acetaminophen 650 mg Oral TID ??? melatonin 9 mg Oral Nightly ??? QUEtiapine 250 mg Oral Nightly ??? levothyroxine 200 mcg Oral QAM ??? calcium carbonate 500 mg Oral Nightly ??? hydrocortisone 10 mg Oral Daily at Noon ??? senna-docusate 2 tablet Oral BID ??? testosterone 5 g Transdermal Nightly ??? methyl salicylate-menthol Topical (Top) BID ??? cholecalciferol (Vitamin D3) 1,000 Units Oral Daily ??? hydrocortisone 20 mg Oral QAM ??? pantoprazole 40 mg Oral QAM AC ??? 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 11/21 advanced to WBAT BLE with assistive device at all times. ?? Agitated behavior issues may be environmental with baseline agitation and lack of normal routine. ??De-escalated opioids as not clear pain is driving agitation - will still treat as if L leg pain is part of the issue but try to spare opioids with tylenol and ibuprofen as well now that he is a few months out from acetabular fx repair. Also consolidating sedating meds closer to bedtime to try to achieve better sleep at night. Otherwise try to get him out and about and stimulated/interacting during the day, and if there is something he normally likes to do at nursing home, then try to avail him of that here. Caregiver indicates that this is normal behavior for him. Plan: # Left acetabular fracture: Improved -s/p operative repair on 09/04/2017 and orthopedics advanced to WBAT BLE (11/21) -continue scheduled tylenol -continue prn ibuprofen ?? # Toxic metabolic encephalopathy on baseline cognitive impairment with past CVA/hemorrhage from pituitary surgery: -encephalopathy seems like it has resolved - his ongoing waxing/waning periods of restlessness and yelling/moaning loudly alternating with periods of relative calm are apparently normal per caregiver -continue quetiapine, trazodone, and melatonin at 8pm (his usual bed time per caregiver) -has additional quetiapine available prn agitation -try to get him active and stimulated during the day -check bladder scan prn / CIC prn -cont bowel regimen -out of net bed now ?? # 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 -decreased hydrocortisone from 20/10/10 to 20/10 per endocrine on 11/16 -increased synthroid to 200 mcg 11/23. ? -seizures managed with home zonisamide 200mg PO QHS per neurology.?? -treat DI as below ?? # DI, Hyponatremia and hypernatremia: sodium stable -outpt ddAVP dosing and fluid restriction are 0.05 mg tid and 3.2 L, respectively - continue these and monitor Na level periodically -appreciate Endocrine assistance -Na 147 this AM plan to repeat tonight if Na > 150 then may consider one time dose of desmopressin 0.05 # Fractured left lower molar: -Likely occurred with seizure, no evidence of acute infection. Extraction to occur in non-urgent manner pending availability, but per dentistry, not likely anytime soon. ?? # Urinary retention: But appears to only be in the morning - closely monitor for now ?? IV access: none Tubes/Drains: none DVT PPX: SCD Anticipated Disposition: SNF Team Pager(MD Coverage 27/01): # [phone] PCP: NAKIA Cifuentes [phone] Attestation: IPI Certification I certify that I am a D-H credentialed attending provider with admitting privileges and that the patient meets or has met medical necessity to require an inpatient IPI level of care meeting a minimumof two midnights or is on the CMS inpatient only procedure list (status C) due to: the patient has met Inpatient IPI criteria and is awaiting rehabilitation or half-way facility placement withactive referrals in process José Miguel Maher MD 12/21/2017 * José Miguel Maher MD - 12/20/2017 8:56 AM EDT Hospital Medicine Attending Daily Progress Note Admit Date: 09/02/2017 Hospital Day 109 days Active Hospital Problems Diagnosis ??? S/P ORIF left acetabulum fracture 09/04/2017 Dr. Lance ??? Acute urinary retention ??? Diabetes insipidus ??? Adrenal insufficiency ??? Panhypopituitarism ??? Seizure disorder ??? Hypothyroidism Resolved Hospital Problems Diagnosis Date Resolved ??? Postoperative anemia due to acute blood loss 12/09/2017 PMH Active Non-Hospital Problems Diagnosis ??? Insomnia ??? Blind ??? CVA (cerebral vascular accident) ??? Urinary incontinence Interval History: - Agitated ROS: No fever, anorexia No cough, shortness of breath No chest pain, palpitation No abdominal pain, N/V No hematuria, dysuria Physical Exam Vitals Range last 24 hrs Temperature Temp: [36.7 ??C (98.1 ??F)] Heart Rate Heart Rate: [107-110] Blood Pressure BP: (130-140)/(72-93) Respiratory Rate Resp: [18-20] SpO2 SpO2: [95 %-98 %] Intake/Output Summary (Last 24 hours) at 12/20/17 0856 Last data filed at 12/19/172008 Gross per 24 hour Intake 1670 ml Output 100 ml Net 1570 ml No data found. Body mass index is 29.2 kg/(m^2). Estimated Creatinine Clearance: 147.3 mL/min (based on Cr of 0.86). CONSTITUTIONAL: awake, alert, not in acute distress HEENT: PERRLA, EOMI, (-) JVD (-) thyromegaly CHEST: RRR, (-) murmur LUNGS: SCE, resonant to percussion, (-) wheeze, (-) crackles ABDOMEN: soft, NABS, (-) tenderness, (-) hepatomegaly, (-) splenomegaly EXTREMITIES: (-) edema, pulses full and equal SKIN: moist, (-) rash Studies reviewed in eDH. Remarkable for the following: LABS: No results for input(s): WBC, HGB, HCT, PLATELET in the last 168 hours. Recent Labs 12/16/17 0901 12/14/17 1809 NA 143 145 K 3.8 4.1 CL 103 105 CO2 23 21* BUN -- 11 CREATININE -- 0.86 No results for input(s): AST, ALT, ALKPHOS, BILITOT, BILIDIR in the last 168 hours. Recent Labs 12/14/17 1809 CALCIUM 8.9 No results for input(s): PT, INR, PTT in the last 168 hours. No results for input(s): CK, TROPONINT in the last 168 hours. FSBG Trend No results for input(s): POCGLU in the last 72 hours. MICRO: No results for input(s): URINECULTURE in the last 720 hours. No results for input(s): GRAMSTAIN, BFCX, LOWERRESPCX, TISSUECX in the last 720 hours. No results for input(s): BLOODCX in the last 720 hours. ECG: Recent Labs 12/05/17 1729 DIAGLINE Sinus tachycardia Nonspecific ST/T wave abnormality Abnormal ECG When compared with ECG of 04-SEP-2017 22:30, Rate slower Confirmed by MD Oh, Sukhi Walker ([id number]) on 12/06/2017 10:46:47 AM QTCCALC 452 VASCULAR: No results for input(s): VBTEXTRPT in the last 720 hours. IMAGING: CT facial 10/20 IMPRESSION Multiple dental caries. Dental restorations limits resolution somewhat but no definite molar fracture can be seen. Consider Panorex of the mandible. CT pelvis MSK 09/03 IMPRESSION 1. Comminuted left acetabular fracture involving the medial wall with posttraumatic protrusio deformity. 2. The flat contour of the left femoral head is consistent with fracture. I do not however see displaced fracture typical the shear injury is seen in the setting. It is possible this base of the represent a compression of the femoral surface. 3. Pelvic hematoma. XR Pelvis 11/18 Impression 1. Unchanged ORIF of left acetabular fracture. 2. The fracture lines are better characterized on CT exam. XR knee, L 11/17 Impression No fracture or dislocation No large knee effusion. OTHER Studies: Inpatient Medications: Scheduled ??? metoprolol succinate 25 mg Oral Daily ??? traZODone 50 mg Oral Nightly ??? desmopressin 0.05 mg Oral TID ??? acetaminophen 650 mg Oral TID ??? melatonin 9 mg Oral Nightly ??? QUEtiapine 250 mg Oral Nightly ??? levothyroxine 200 mcg Oral QAM ??? calcium carbonate 500 mg Oral Nightly ??? hydrocortisone 10 mg Oral Daily at Noon ??? senna-docusate 2 tablet Oral BID ??? testosterone 5 g Transdermal Nightly ??? methyl salicylate-menthol Topical (Top) BID ??? cholecalciferol (Vitamin D3) 1,000 Units Oral Daily ??? hydrocortisone 20 mg Oral QAM ??? pantoprazole 40 mg Oral QAM AC ??? 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 11/21 advanced to WBAT BLE with assistive device at all times. ?? Agitated behavior issues may be environmental with baseline agitation and lack of normal routine. ??De-escalated opioids as not clear pain is driving agitation - will still treat as if L leg pain is part of the issue but try to spare opioids with tylenol and ibuprofen as well now that he is a few months out from acetabular fx repair. Also consolidating sedating meds closer to bedtime to try to achieve better sleep at night. Otherwise try to get him out and about and stimulated/interacting during the day, and if there is something he normally likes to do at nursing home, then try to avail him of that here. Caregiver indicates that this is normal behavior for him. Plan: # Left acetabular fracture: Improved -s/p operative repair on 09/04/2017 and orthopedics advanced to WBAT BLE (11/21) -continue scheduled tylenol -continue prn ibuprofen ?? # Toxic metabolic encephalopathy on baseline cognitive impairment with past CVA/hemorrhage from pituitary surgery: -encephalopathy seems like it has resolved - his ongoing waxing/waning periods of restlessness and yelling/moaning loudly alternating with periods of relative calm are apparently normal per caregiver -continue quetiapine, trazodone, and melatonin at 8pm (his usual bed time per caregiver) -has additional quetiapine available prn agitation -try to get him active and stimulated during the day -check bladder scan prn / CIC prn -cont bowel regimen -out of net bed now ?? # 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 -decreased hydrocortisone from 20/10/10 to 20/10 per endocrine on 11/16 -increased synthroid to 200 mcg 11/23. ? -seizures managed with home zonisamide 200mg PO QHS per neurology.?? -treat DI as below ?? # DI, Hyponatremia and hypernatremia: sodium stable -outpt ddAVP dosing and fluid restriction are 0.05 mg tid and 3.2 L, respectively - continue these and monitor Na level periodically -appreciate Endocrine assistance ?? # Fractured left lower molar: -Likely occurred with seizure, no evidence of acute infection. Extraction to occur in non-urgent manner pending availability, but per dentistry, not likely anytime soon. ?? # Urinary retention: But appears to only be in the morning - closely monitor for now ?? IV access: none Tubes/Drains: none DVT PPX: SCD Anticipated Disposition: SNF Team Pager( Coverage 27/01): # [phone] PCP: NAKIA Cifuentes [phone] Attestation: IPI Certification I certify that I am a D-H credentialed attending provider with admitting privileges and that the patient meets or has met medical necessity to require an inpatient IPI level of care meeting a minimumof two midnights or is on the CMS inpatient only procedure list (status C) due to: the patient has met Inpatient IPI criteria and is awaiting rehabilitation or half-way facility placement withactive referrals in process José Miguel Maher MD 12/20/2017 * Fran Gilliam MD - 12/19/2017 1:10 PM EDT [facility] Medicine Attending Daily Progress Note Admit Date: 09/02/2017 Hospital Day 109 days Active Hospital Problems Diagnosis ??? S/P ORIF left acetabulum fracture 09/04/2017 Dr. Lance ??? Acute urinary retention ??? Diabetes insipidus ??? Adrenal insufficiency ??? Panhypopituitarism ??? Seizure disorder ??? Hypothyroidism Resolved Hospital Problems Diagnosis Date Resolved ??? Postoperative anemia due to acute blood loss 12/09/2017 PM Active Non-Hospital Problems Diagnosis ??? Insomnia ??? Blind ??? CVA (cerebral vascular accident) ??? Urinary incontinence Inpatient Medications: Scheduled ??? metoprolol succinate 25 mg Oral Daily ??? traZODone 50 mg Oral Nightly ??? desmopressin 0.05 mg Oral TID ??? acetaminophen 650 mg Oral TID ??? melatonin 9 mg Oral Nightly ??? QUEtiapine 250 mg Oral Nightly ??? levothyroxine 200 mcg Oral QAM ??? calcium carbonate 500 mg Oral Nightly ??? hydrocortisone 10 mg Oral Daily at Noon ??? senna-docusate 2 tablet Oral BID ??? testosterone 5 g Transdermal Nightly ??? methyl salicylate-menthol Topical (Top) BID ??? cholecalciferol (Vitamin D3) 1,000 Units Oral Daily ??? hydrocortisone 20 mg Oral QAM ??? pantoprazole 40 mg Oral QAM AC ??? zonisamide 200 mg Oral Nightly Continuous infusions: PRN: ibuprofen, QUEtiapine, polyethylene glycol (MIRALAX)oral powder, simethicone, bisacodyl, senna-docusate, naphazoline-pheniramine Interval History: -no new issues -having a good day Physical Exam Vitals Range last 24 hrs Temperature Temp: [36.5 ??C (97.7 ??F)-36.7 ??C (98.1 ??F)] Heart Rate Heart Rate: [91-107] Blood Pressure BP: (130-140)/(77-93) Respiratory Rate Resp: [18-19] SpO2 SpO2: [95 %-98 %] Intake/Output Summary (Last 24 hours) at 12/20/177 Last data filed at 12/19/172008 Gross per 24 hour Intake 2330 ml Output 300 ml Net 2030 ml No data found. Body mass index is 29.2 kg/(m^2). Physical Exam General - NAD HEENT - anicteric, MMM CV - RRR Lungs - CTAB Abd - Soft, nondistended Ext - no c/c/e Studies reviewed in eDH. Remarkable for the following: LABS: Last 3 wbc, hgb, hct plt Recent Labs 12/06/17 0748 11/14/17 0508 10/22/17 0502 WBC 4.6 5.7 6.6 HGB 11.7* 11.5* 12.9* HCT 38.1* 37.4* 40.5 PLATELET 291 274 339 Last 3 Lytes Recent Labs 12/16/17 0901 12/14/17 1809 12/09/17 0407 12/06/17 0748 NA 143 145 139 143 K 3.8 4.1 3.8 3.7 CL 103 105 102 104 CO2 23 21* 22 24 BUN -- 11 20 23* CREATININE -- 0.86 0.74* 0.64* Last 3 LFTs Recent Labs 09/04/17 0358 AST 23 ALT 31 ALKPHOS 75 BILITOT 0.5 BILIDIR 0.1 FSBG Trend No results for input(s): POCGLU in the last 72 hours. MICRO: No results for input(s): URINECULTURE in the last 720 hours. No results for input(s): GRAMSTAIN, BFCX, LOWERRESPCX, TISSUECX in the last 720 hours. No results for input(s): BLOODCX in the last 720 hours. ECG: Recent Labs 12/05/17 1729 DIAGLINE Sinus tachycardia Nonspecific ST/T wave abnormality Abnormal ECG When compared with ECG of 04-SEP-2017 22:30, Rate slower Confirmed by MD Oh, Sukhi Walker ([id number]) on 12/06/2017 10:46:47 AM QTCCALC 452 VASCULAR: No results for input(s): VBTEXTRPT in the last 720 hours. 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 11/21 advanced to WBAT BLE with assistive device at all times. Agitated behavior issues may be environmental with baseline agitation and lack of normal routine. De-escalated opioids as not clear pain is driving agitation - will still treat as if L leg pain is part of the issue but try to spare opioids with tylenol and ibuprofen as well now that he is a few months out from acetabular fx repair. Also consolidating sedating meds closer to bedtime to try to achieve better sleep at night. Otherwise try to get him out and about and stimulated/interacting during the day, and if there is something he normally likes to do at nursing home, then try to avail him of that here. Caregiver indicates that this is normal behavior for him. Plan: Left acetabular fracture: Improved -s/p operative repair on 09/04/2017 and orthopedics advanced to WBAT BLE (11/21) -continue scheduled tylenol -continue prn ibuprofen Toxic metabolic encephalopathy on baseline cognitive impairment with past CVA/hemorrhage from pituitary surgery: -encephalopathy seems like it has resolved - his ongoing waxing/waning periods of restlessness and yelling/moaning loudly alternating with periods of relative calm are apparently normal per caregiver -continue quetiapine, trazodone, and melatonin at 8pm (his usual bed time per caregiver) -has additional quetiapine available prn agitation -try to get him active and stimulated during the day -Check bladder scan prn / CIC prn -Bowel regimen -out of net bed now Panhypopituitarism including DI: Stable -Due to 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 -Appreciate endocrinology recommendations. -Decreased hydrocortisone from 20/10/10 to 20/10 per endocrine on 11/16 -Increased synthroid to 200 mcg 11/23. -Seizures managed with home zonisamide 200mg PO QHS per neurology. -treat DI as below DI, Hyponatremia and hypernatremia: sodium stable -outpt ddAVP dosing and fluid restriction are 0.05 mg tid and 3.2 L, respectively - continue these and monitor Na level periodically -appreciate Endocrine assistance Fractured left lower molar: -Likely occurred with seizure, no evidence of acute infection. Extraction to occur in non-urgent manner pending availability, but per dentistry, not likely anytime soon. Urinary retention: But appears to only be in the morning - closely monitor for now IV access: None Tubes/Drains: None DVT PPX: None as moving alot Anticipated Disposition: Discharge limited by behaviors (rehabilitation) and inability to climb stairs (nursing home) - continue to try to make progress w/ measures described above and ongoing PT/OT Team Pager( Coverage 27/01): #[phone] PCP: NAKIA Cifuentes [phone] Attestation: IPI Certification I certify that I am a D-H credentialed attending provider with admitting privileges and that the patient meets or has met medical necessity to require an inpatient IPI level of care meeting a minimumof two midnights or is on the [facility] inpatient only procedure list (status C) due to: Acetabular fx and hypernatremia FRAN GILLIAM MD 12/20/2017 * Fran Gilliam MD - 12/18/2017 12:55 PM EDT Hospital Medicine Attending Daily Progress Note Admit Date: 09/02/2017 Hospital Day 107 days Active Hospital Problems Diagnosis ??? S/P ORIF left acetabulum fracture 09/04/2017 Dr. Lance ??? Acute urinary retention ??? Diabetes insipidus ??? Adrenal insufficiency ??? Panhypopituitarism ??? Seizure disorder ??? Hypothyroidism Resolved Hospital Problems Diagnosis Date Resolved ??? Postoperative anemia due to acute blood loss 12/09/2017 PMH Active Non-Hospital Problems Diagnosis ??? Insomnia ??? Blind ??? CVA (cerebral vascular accident) ??? Urinary incontinence Inpatient Medications: Scheduled ??? metoprolol succinate 25 mg Oral Daily ??? traZODone 50 mg Oral Nightly ??? desmopressin 0.05 mg Oral TID ??? acetaminophen 650 mg Oral TID ??? melatonin 9 mg Oral Nightly ??? QUEtiapine 250 mg Oral Nightly ??? levothyroxine 200 mcg Oral QAM ??? calcium carbonate 500 mg Oral Nightly ??? hydrocortisone 10 mg Oral Daily at Noon ??? senna-docusate 2 tablet Oral BID ??? testosterone 5 g Transdermal Nightly ??? methyl salicylate-menthol Topical (Top) BID ??? cholecalciferol (Vitamin D3) 1,000 Units Oral Daily ??? hydrocortisone 20 mg Oral QAM ??? pantoprazole 40 mg Oral QAM AC ??? zonisamide 200 mg Oral Nightly Continuous infusions: PRN: ibuprofen, QUEtiapine, polyethylene glycol (MIRALAX)oral powder, simethicone, bisacodyl, senna-docusate, naphazoline-pheniramine Interval History: -no new issues -louder today and less cooperative, declined PT - but typical for him to go through cycles like this Physical Exam Vitals Range last 24 hrs Temperature Temp: [36.3 ??C (97.3 ??F)-36.7 ??C (98.1 ??F)] Heart Rate Heart Rate: [103-108] Blood Pressure BP: (138-147)/(81-85) Respiratory Rate Resp: [17-19] SpO2 SpO2: [95 %-97 %] Intake/Output Summary (Last 24 hours) at 12/18/17 2341 Last data filed at 12/18/172009 Gross per 24 hour Intake 2150 ml Output 1750 ml Net 400 ml No data found. Body mass index is 29.2 kg/(m^2). Physical Exam General - NAD HEENT - anicteric, MMM CV - RRR Lungs - CTAB Abd - Soft, nondistended Ext - no c/c/e Studies reviewed in eDH. Remarkable for the following: LABS: Last 3 wbc, hgb, hct plt Recent Labs 12/06/17 0748 11/14/17 0508 10/22/17 0502 WBC 4.6 5.7 6.6 HGB 11.7* 11.5* 12.9* HCT 38.1* 37.4* 40.5 PLATELET 291 274 339 Last 3 Lytes Recent Labs 12/16/17 0901 12/14/17 1809 12/09/17 0407 12/06/17 0748 NA 143 145 139 143 K 3.8 4.1 3.8 3.7 CL 103 105 102 104 CO2 23 21* 22 24 BUN -- 11 20 23* CREATININE -- 0.86 0.74* 0.64* Last 3 LFTs Recent Labs 09/04/17 0358 AST 23 ALT 31 ALKPHOS 75 BILITOT 0.5 BILIDIR 0.1 FSBG Trend No results for input(s): POCGLU in the last 72 hours. MICRO: No results for input(s): URINECULTURE in the last 720 hours. No results for input(s): GRAMSTAIN, BFCX, LOWERRESPCX, TISSUECX in the last 720 hours. No results for input(s): BLOODCX in the last 720 hours. ECG: Recent Labs 12/05/17 1729 DIAGLINE Sinus tachycardia Nonspecific ST/T wave abnormality Abnormal ECG When compared with ECG of 04-SEP-2017 22:30, Rate slower Confirmed by MD Oh, Sukhi Walker ([id number]) on 12/06/2017 10:46:47 AM QTCCALC 452 VASCULAR: No results for input(s): VBTEXTRPT in the last 720 hours. 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 11/21 advanced to WBAT BLE with assistive device at all times. Agitated behavior issues may be environmental with baseline agitation and lack of normal routine. De-escalated opioids as not clear pain is driving agitation - will still treat as if L leg pain is part of the issue but try to spare opioids with tylenol and ibuprofen as well now that he is a few months out from acetabular fx repair. Also consolidating sedating meds closer to bedtime to try to achieve better sleep at night. Otherwise try to get him out and about and stimulated/interacting during the day, and if there is something he normally likes to do at nursing home, then try to avail him of that here. Caregiver indicates that this is normal behavior for him. Plan: Left acetabular fracture: Improved -s/p operative repair on 09/04/2017 and orthopedics advanced to WBAT BLE (11/21) -continue scheduled tylenol -continue prn ibuprofen Toxic metabolic encephalopathy on baseline cognitive impairment with past CVA/hemorrhage from pituitary surgery: -encephalopathy seems like it has resolved - his ongoing waxing/waning periods of restlessness and yelling/moaning loudly alternating with periods of relative calm are apparently normal per caregiver -continue quetiapine, trazodone, and melatonin at 8pm (his usual bed time per caregiver) -has additional quetiapine available prn agitation -try to get him active and stimulated during the day -Check bladder scan prn / CIC prn -Bowel regimen -out of net bed now Panhypopituitarism including DI: Stable -Due to 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 -Appreciate endocrinology recommendations. -Decreased hydrocortisone from 20/ to 20/10 per endocrine on 11/16 -Increased synthroid to 200 mcg 11/23. -Seizures managed with home zonisamide 200mg PO QHS per neurology. -treat DI as below DI, Hyponatremia and hypernatremia: sodium stable -outpt ddAVP dosing and fluid restriction are 0.05 mg tid and 3.2 L, respectively - continue these and monitor Na level periodically -appreciate Endocrine assistance Fractured left lower molar: -Likely occurred with seizure, no evidence of acute infection. Extraction to occur in non-urgent manner pending availability, but per dentistry, not likely anytime soon. Urinary retention: But appears to only be in the morning - closely monitor for now IV access: None Tubes/Drains: None DVT PPX: None as moving alot Anticipated Disposition: Discharge limited by behaviors (rehabilitation) and inability to climb stairs (nursing home) - continue to try to make progress w/ measures described above and ongoing PT/OT Team Pager( Coverage 27/01): #[phone] PCP: NAKIA Cifuentes [phone] Attestation: IPI Certification I certify that I am a D-H credentialed attending provider with admitting privileges and that the patient meets or has met medical necessity to require an inpatient IPI level of care meeting a minimumof two midnights or is on the [facility] inpatient only procedure list (status C) due to: Acetabular fx and hypernatremia FRAN GILLIAM MD 12/18/2017 * Kris Mcghee MD - 12/18/2017 12:08 PM EDT Orthopaedic Surgery Progress Note Surgery/Issue: ORIF left acetabulum Attending: Dr. Lance Date of surgery: 09/04/2017 Subjective/Events: 59 Days Post-Op, last seen 11/28/17. JAMAL in interim. Miguel Angel is still awaiting appropriate placement. He is making progress with PT but his mobility seems limited by behavior. He is still requiring 2 assist to get up stairs. He is mobilizing well on flat ground with a walker but will also intermittently throw his walker in apparent frustration. Today he evinces no pain in his left hip. Objcetive: Temp: [36.7 ??C (98.1 ??F)] Heart Rate: [106-107] Resp: [17-21] BP: (138-147)/(81-85) Intake/Output Summary (Last 24 hours) at 12/18/17 1226 Last data filed at 12/18/17 1200 Gross per 24 hour Intake 3670 ml Output 2550 ml Net 1120 ml Lab Results Component Value Date NA 143 12/16/2017 K 3.8 12/16/2017 CL 103 12/16/2017 CO2 23 12/16/2017 BUN 11 12/14/2017 CREATININE 0.86 12/14/2017 GLUCOSE 121 12/14/2017 GLUCFASTING 90 12/09/2017 CALCIUM 8.9 12/14/2017 Lab Results Component Value Date WBC 4.6 12/06/2017 HGB 11.7 (L) 12/06/2017 HCT 38.1 (L) 12/06/2017 MCV 75.7 (L) 12/06/2017 PLATELET 291 12/06/2017 Lab Results Component Value Date INR 1.1 09/03/2017 Exam: General: comfortable, sitting in wheelchair after returning from rehab gym. CV: RR assessed peripherally Resp: no increased work of breathing LLE: Anterior pelvic and left lower abdominal incisions well healed Unable to assess motor/sensory formally but moving all 4 extremities. Palpable DP/PT Imaging: XR Judet 11/18: Good alignment. Hardware in unchanged position. ?? A/P: 27 y.o. male s/p ORIF left acetabular fx on 09/04/17. Post op progression seems to be limited bybehavior. Further care per medicine, dental, and CM/SW for placement. Activity: WBAT BLE with assistive device DVT prophylaxis: per primary Follow up: to be re-tasked at discharge - please page #[phone] prior to discharge so follow up can be arranged Kris Mcghee MD, PGY-1 Orthopaedic Surgery Pager #: [phone] No future appointments. Associated attestation - Amy Lance MD - 12/19/2017 5:52 AM EDT Patient seen and examined. Agree with resident note. Dispo planning. Mandy Lance MD Department of Orthopaedics 12/19/17 * Louis Doran PTA - 12/18/2017 10:30 AM EDT Physical Therapy Note Attempted to work with pt this morning, initially agreeable to getting up to the wheelchair, donnedsocks, shoes and shorts with assistance, transferred to the wheelchair with FWW and went up to the gym. Pt then began to decline therapy activities, multiple attempts made at redirecting pt, however pt continued to decline ambulating or practicing the stairs. Pt unable to elaborate reasons behind declining therapy. Extra time required to get pt safely back to his room via wheelchair, and once in room needed a Max A x 2 arm in arm transfer to get back to bed. Will continue to follow up as appropriate. Total time spent with patient: 30 minutes Total timed interventions: 0 minutes Pager: [phone] LOUIS DORAN PTA Physical Therapy Rehabilitation Department * Melvina Motley, DT - 12/17/2017 2:45 PM EDT Nutrition Services - Follow-up Note Miguel Angel Mason : 1990 AGE: 27 y.o. Patient Active Problem List Diagnosis Date Noted ??? *Hospital-S/P ORIF left acetabulum fracture 09/04/2017 Dr. Lance 09/02/2017 ??? Hospital-Acute urinary retention 12/09/2017 ??? Hospital-Diabetes insipidus 09/03/2017 Chronic ??? Hospital-Adrenal insufficiency 09/03/2017 ??? 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 Hospital-Seizure disorder 09/03/2017 ??? Insomnia 09/03/2017 ??? Blind 09/03/2017 ??? CVA (cerebral vascular accident) 09/03/2017 ??? Urinary incontinence 09/03/2017 ??? Hospital-Hypothyroidism 09/03/2017 Reason for Nutrition Intervention: Follow-up Diet Order: Regular Appetite: Good Food allergies: NKFA Chewing/Swallowing difficulty: none Ht Readings from Last 3 Encounters: 09/07/17 177.8 cm (5' 10) Wt Readings from Last 3 Encounters: 12/11/17 92.3 kg (203 lb 7.8 oz) Body mass index is 29.2 kg/(m^2). Vitamins/Minerals: Vitamin D3, tums noted. Assessment: Followed up with patient to further assess current state of appetite. Nurse reported pthas a good appetite without difficulty chewing or swallowing. Nurse confirmed pt is tolerating current diet without nausea or vomiting. Nurse expressed that patient typically eats everything he is given, including snacks. Will continue to provide fruit cup for snack. Will continue to monitor po intake. Nutrition Plan: Continue current diet. Cut up all meal trays. Fruit cup as snack. Encourage good po intake. Monitor weight. Support and encouragement provided. Nutrition services to follow weekly thru hospital course unless consulted in the interim. ADAM Zuñiga * Fran Gilliam MD - 12/17/2017 1:15 PM EDT [facility] Medicine Attending Daily Progress Note Admit Date: 09/02/2017 Hospital Day 106 days Active Hospital Problems Diagnosis ??? S/P ORIF left acetabulum fracture 09/04/2017 Dr. Lance ??? Acute urinary retention ??? Diabetes insipidus ??? Adrenal insufficiency ??? Panhypopituitarism ??? Seizure disorder ??? Hypothyroidism Resolved Hospital Problems Diagnosis Date Resolved ??? Postoperative anemia due to acute blood loss 12/09/2017 PM Active Non-Hospital Problems Diagnosis ??? Insomnia ??? Blind ??? CVA (cerebral vascular accident) ??? Urinary incontinence Inpatient Medications: Scheduled ??? metoprolol succinate 25 mg Oral Daily ??? traZODone 50 mg Oral Nightly ??? desmopressin 0.05 mg Oral TID ??? acetaminophen 650 mg Oral TID ??? melatonin 9 mg Oral Nightly ??? QUEtiapine 250 mg Oral Nightly ??? levothyroxine 200 mcg Oral QAM ??? calcium carbonate 500 mg Oral Nightly ??? hydrocortisone 10 mg Oral Daily at Noon ??? senna-docusate 2 tablet Oral BID ??? sodium chloride 0.9 % 5 mL Intravenous Q12H ??? testosterone 5 g Transdermal Nightly ??? methyl salicylate-menthol Topical (Top) BID ??? cholecalciferol (Vitamin D3) 1,000 Units Oral Daily ??? hydrocortisone 20 mg Oral QAM ??? pantoprazole 40 mg Oral QAM AC ??? zonisamide 200 mg Oral Nightly Continuous infusions: PRN: ibuprofen, QUEtiapine, polyethylene glycol (MIRALAX)oral powder, simethicone, sodium chloride 0.9 %, lidocaine, bisacodyl, senna-docusate, naphazoline-pheniramine Interval History: -no new issues -having a good day -doing awesome, why -denies pain Physical Exam Vitals Range last 24 hrs Temperature Temp: [35.6 ??C (96.1 ??F)-36.7 ??C (98.1 ??F)] Heart Rate Heart Rate: [89-106] Blood Pressure BP: (126-154)/(68-95) Respiratory Rate Resp: [18-21] SpO2 SpO2: [93 %-97 %] Intake/Output Summary (Last 24 hours) at 12/17/17 2326 Last data filed at 12/17/17 2249 Gross per 24 hour Intake 2120 ml Output 1350 ml Net 770 ml Patient Vitals for the past 168 hrs: Weight 12/11/17 0917 92.3 kg (203 lb 7.8 oz) Body mass index is 29.2 kg/(m^2). Physical Exam General - NAD HEENT - anicteric, MMM CV - RRR Lungs - CTAB Abd - Soft, nondistended Ext - no c/c/e Studies reviewed in eDH. Remarkable for the following: LABS: Last 3 wbc, hgb, hct plt Recent Labs 12/06/17 0748 11/14/17 0508 10/22/17 0502 WBC 4.6 5.7 6.6 HGB 11.7* 11.5* 12.9* HCT 38.1* 37.4* 40.5 PLATELET 291 274 339 Last 3 Lytes Recent Labs 12/16/17 0901 12/14/17 1809 12/09/17 0407 12/06/17 0748 NA 143 145 139 143 K 3.8 4.1 3.8 3.7 CL 103 105 102 104 CO2 23 21* 22 24 BUN -- 11 20 23* CREATININE -- 0.86 0.74* 0.64* Last 3 LFTs Recent Labs 09/04/17 0358 AST 23 ALT 31 ALKPHOS 75 BILITOT 0.5 BILIDIR 0.1 FSBG Trend No results for input(s): POCGLU in the last 72 hours. MICRO: No results for input(s): URINECULTURE in the last 720 hours. No results for input(s): GRAMSTAIN, BFCX, LOWERRESPCX, TISSUECX in the last 720 hours. No results for input(s): BLOODCX in the last 720 hours. ECG: Recent Labs 12/05/17 1729 DIAGLINE Sinus tachycardia Nonspecific ST/T wave abnormality Abnormal ECG When compared with ECG of 04-SEP-2017 22:30, Rate slower Confirmed by MD Oh, Sukhi Walker ([id number]) on 12/06/2017 10:46:47 AM QTCCALC 452 VASCULAR: No results for input(s): VBTEXTRPT in the last 720 hours. 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 11/21 advanced to WBAT BLE with assistive device at all times. Agitated behavior issues may be environmental with baseline agitation and lack of normal routine. De-escalated opioids as not clear pain is driving agitation - will still treat as if L leg pain is part of the issue but try to spare opioids with tylenol and ibuprofen as well now that he is a few months out from acetabular fx repair. Also consolidating sedating meds closer to bedtime to try to achieve better sleep at night. Otherwise try to get him out and about and stimulated/interacting during the day, and if there is something he normally likes to do at nursing home, then try to avail him of that here. Caregiver indicates that this is normal behavior for him. Plan: Left acetabular fracture: Improved -s/p operative repair on 09/04/2017 and orthopedics advanced to WBAT BLE (11/21) -continue scheduled tylenol -continue prn ibuprofen Toxic metabolic encephalopathy on baseline cognitive impairment with past CVA/hemorrhage from pituitary surgery: -encephalopathy seems like it has resolved - his ongoing waxing/waning periods of restlessness and yelling/moaning loudly alternating with periods of relative calm are apparently normal per caregiver -continue quetiapine, trazodone, and melatonin at 8pm (his usual bed time per caregiver) -has additional quetiapine available prn agitation -try to get him active and stimulated during the day -Check bladder scan prn / CIC prn -Bowel regimen -out of net bed now Panhypopituitarism including DI: Stable -Due to 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 -Appreciate endocrinology recommendations. -Decreased hydrocortisone from 20/10/10 to 20/10 per endocrine on 11/16 -Increased synthroid to 200 mcg 11/23. -Seizures managed with home zonisamide 200mg PO QHS per neurology. -treat DI as below DI, Hyponatremia and hypernatremia: sodium stable -outpt ddAVP dosing and fluid restriction are 0.05 mg tid and 3.2 L, respectively - continue these and monitor Na level periodically -appreciate Endocrine assistance Fractured left lower molar: -Likely occurred with seizure, no evidence of acute infection. Extraction to occur in non-urgent manner pending availability, but per dentistry, not likely anytime soon. Urinary retention: But appears to only be in the morning - closely monitor for now IV access: None Tubes/Drains: None DVT PPX: None as moving alot Anticipated Disposition: Discharge limited by behaviors (rehabilitation) and inability to climb stairs (nursing home) - continue to try to make progress w/ measures described above and ongoing PT/OT Team Pager( Coverage 27/01): #[phone] PCP: NAKIA Cifuentes [phone] Attestation: IPI Certification I certify that I am a D-H credentialed attending provider with admitting privileges and that the patient meets or has met medical necessity to require an inpatient IPI level of care meeting a minimumof two midnights or is on the CMS inpatient only procedure list (status C) due to: Acetabular fx and hypernatremia FRAN GILLIAM MD 12/17/2017 * Tricia Gerber RN - 12/17/2017 10:27 AM EDT Based on discussions with the multi-disciplinary healthcare team, the patient would benefit from rehab at discharge. ?? OCM requested referrals to: ?? 1. [facility] ([place] [address] ?? [phone] ? Expected date of discharge: Medically ready Note routed to Audit Director who will communicate referrals to facilities and provide any required information. * Tricia Gerber RN - 12/16/2017 3:08 PM EDT Subha Tejeda [phone] (RN of [facility] who oversees the nursing home). She reports she is working on finding an appropriate facility for patient. She requested update on patients clinical status and mobility. All questions answered to the best of my ability. Also requested nurse call her with more detailed information. Discussed previous living environment and patients ability to return there. Per last therapy visit-patient was needing 2 assist with stairs. She feels he would be fine getting up stairs that lead into the home, but does not feel that 2 people could safely get him up the stairs to bedroom. As the stair case inside home is narrow and steep. States she will continue to assist with placement. Case management will continue to follow. Tricia Gerber RN Case [facility] Companion of Care Management [email or web address] Pager: [phone] * Fran Gilliam MD - 12/16/2017 11:40 AM EDT Hospital Medicine Attending Daily Progress Note Admit Date: 09/02/2017 Hospital Day 105 days Active Hospital Problems Diagnosis ??? S/P ORIF left acetabulum fracture 09/04/2017 Dr. Lance ??? Acute urinary retention ??? Diabetes insipidus ??? Adrenal insufficiency ??? Panhypopituitarism ??? Seizure disorder ??? Hypothyroidism Resolved Hospital Problems Diagnosis Date Resolved ??? Postoperative anemia due to acute blood loss 12/09/2017 [facility] Active Non-Hospital Problems Diagnosis ??? Insomnia ??? Blind ??? CVA (cerebral vascular accident) ??? Urinary incontinence Inpatient Medications: Scheduled ??? metoprolol succinate 25 mg Oral Daily ??? traZODone 50 mg Oral Nightly ??? desmopressin 0.05 mg Oral TID ??? acetaminophen 650 mg Oral TID ??? melatonin 9 mg Oral Nightly ??? QUEtiapine 250 mg Oral Nightly ??? levothyroxine 200 mcg Oral QAM ??? calcium carbonate 500 mg Oral Nightly ??? hydrocortisone 10 mg Oral Daily at Noon ??? senna-docusate 2 tablet Oral BID ??? sodium chloride 0.9 % 5 mL Intravenous Q12H ??? testosterone 5 g Transdermal Nightly ??? methyl salicylate-menthol Topical (Top) BID ??? cholecalciferol (Vitamin D3) 1,000 Units Oral Daily ??? hydrocortisone 20 mg Oral QAM ??? pantoprazole 40 mg Oral QAM AC ??? zonisamide 200 mg Oral Nightly Continuous infusions: PRN: ibuprofen, QUEtiapine, polyethylene glycol (MIRALAX)oral powder, simethicone, sodium chloride 0.9 %, lidocaine, bisacodyl, senna-docusate, naphazoline-pheniramine Interval History: -no new issues -doing awesome, why -denies pain Physical Exam Vitals Range last 24 hrs Temperature Temp: [36.3 ??C (97.3 ??F)-36.7 ??C (98.1 ??F)] Heart Rate Heart Rate: [84-95] Blood Pressure BP: (121-154)/(76-93) Respiratory Rate Resp: [14-18] SpO2 SpO2: [95 %-97 %] Intake/Output Summary (Last 24 hours) at 12/16/17 2354 Last data filed at 12/16/17 1745 Gross per 24 hour Intake 2530 ml Output 600 ml Net 1930 ml Patient Vitals for the past 168 hrs: Weight 12/11/17 0917 92.3 kg (203 lb 7.8 oz) Body mass index is 29.2 kg/(m^2). Physical Exam General - NAD HEENT - anicteric, MMM CV - RRR Lungs - CTAB Abd - Soft, nondistended Ext - no c/c/e Studies reviewed in eDH. Remarkable for the following: LABS: Last 3 wbc, hgb, hct plt Recent Labs 12/06/17 0748 11/14/17 0508 10/22/17 0502 WBC 4.6 5.7 6.6 HGB 11.7* 11.5* 12.9* HCT 38.1* 37.4* 40.5 PLATELET 291 274 339 Last 3 Lytes Recent Labs 12/16/17 0901 12/14/17 1809 12/09/17 0407 12/06/17 0748 NA 143 145 139 143 K 3.8 4.1 3.8 3.7 CL 103 105 102 104 CO2 23 21* 22 24 BUN -- 11 20 23* CREATININE -- 0.86 0.74* 0.64* Last 3 LFTs Recent Labs 09/04/17 0358 AST 23 ALT 31 ALKPHOS 75 BILITOT 0.5 BILIDIR 0.1 FSBG Trend No results for input(s): POCGLU in the last 72 hours. MICRO: No results for input(s): URINECULTURE in the last 720 hours. No results for input(s): GRAMSTAIN, BFCX, LOWERRESPCX, TISSUECX in the last 720 hours. No results for input(s): BLOODCX in the last 720 hours. ECG: Recent Labs 12/05/17 1729 DIAGLINE Sinus tachycardia Nonspecific ST/T wave abnormality Abnormal ECG When compared with ECG of 04-SEP-2017 22:30, Rate slower Confirmed by MD Oh, Sukhi Walker ([id number]) on 12/06/2017 10:46:47 AM QTCCALC 452 VASCULAR: No results for input(s): VBTEXTRPT in the last 720 hours. 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 11/21 advanced to WBAT BLE with assistive device at all times. Agitated behavior issues may be environmental with baseline agitation and lack of normal routine. De-escalated opioids as not clear pain is driving agitation - will still treat as if L leg pain is part of the issue but try to spare opioids with tylenol and ibuprofen as well now that he is a few months out from acetabular fx repair. Also consolidating sedating meds closer to bedtime to try to achieve better sleep at night. Otherwise try to get him out and about and stimulated/interacting during the day, and if there is something he normally likes to do at nursing home, then try to avail him of that here. Caregiver indicates that this is normal behavior for him. Plan: Left acetabular fracture: Improved -s/p operative repair on 09/04/2017 and orthopedics advanced to WBAT BLE (11/21) -continue scheduled tylenol -continue prn ibuprofen Toxic metabolic encephalopathy on baseline cognitive impairment with past CVA/hemorrhage from pituitary surgery: -encephalopathy seems like it has resolved - his ongoing waxing/waning periods of restlessness and yelling/moaning loudly alternating with periods of relative calm are apparently normal per caregiver -continue quetiapine, trazodone, and melatonin at 8pm (his usual bed time per caregiver) -has additional quetiapine available prn agitation -try to get him active and stimulated during the day -Check bladder scan prn / CIC prn -Bowel regimen -out of net bed now Panhypopituitarism including DI: Stable -Due to 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 -Appreciate endocrinology recommendations. -Decreased hydrocortisone from 20/10/10 to 20/10 per endocrine on 11/16 -Increased synthroid to 200 mcg 11/23. -Seizures managed with home zonisamide 200mg PO QHS per neurology. -treat DI as below DI, Hyponatremia and hypernatremia: sodium stable -outpt ddAVP dosing and fluid restriction are 0.05 mg tid and 3.2 L, respectively - continue these and monitor Na level periodically -appreciate Endocrine assistance Fractured left lower molar: -Likely occurred with seizure and no evidence of acute infection. Extraction to occur in non-urgentmanner pending availability, but per dentistry, not likely anytime soon. Urinary retention: But appears to only be in the morning - closely monitor for now IV access: None Tubes/Drains: None DVT PPX: None as moving alot Anticipated Disposition: Discharge limited by behaviors (rehabilitation) and inability to climb stairs (nursing home) - continue to try to make progress w/ measures described above and ongoing PT/OT Team Pager( Coverage 27/01): #[phone] PCP: NAKIA Cifuentes [phone] Attestation: IPI Certification I certify that I am a D-H credentialed attending provider with admitting privileges and that the patient meets or has met medical necessity to require an inpatient IPI level of care meeting a minimumof two midnights or is on the [facility] inpatient only procedure list (status C) due to: Acetabular fx and hypernatremia FRAN GILLIAM MD 12/16/2017 * Fran Gilliam MD - 12/15/2017 4:50 PM EDT [facility] Medicine Attending Daily Progress Note Admit Date: 09/02/2017 Hospital Day 104 days Active Hospital Problems Diagnosis ??? S/P ORIF left acetabulum fracture 09/04/2017 Dr. Lance ??? Acute urinary retention ??? Diabetes insipidus ??? Adrenal insufficiency ??? Panhypopituitarism ??? Seizure disorder ??? Hypothyroidism Resolved Hospital Problems Diagnosis Date Resolved ??? Postoperative anemia due to acute blood loss 12/09/2017 PM Active Non-Hospital Problems Diagnosis ??? Insomnia ??? Blind ??? CVA (cerebral vascular accident) ??? Urinary incontinence Inpatient Medications: Scheduled ??? metoprolol succinate 25 mg Oral Daily ??? traZODone 50 mg Oral Nightly ??? desmopressin 0.05 mg Oral TID ??? acetaminophen 650 mg Oral TID ??? melatonin 9 mg Oral Nightly ??? QUEtiapine 250 mg Oral Nightly ??? levothyroxine 200 mcg Oral QAM ??? calcium carbonate 500 mg Oral Nightly ??? hydrocortisone 10 mg Oral Daily at Noon ??? senna-docusate 2 tablet Oral BID ??? sodium chloride 0.9 % 5 mL Intravenous Q12H ??? testosterone 5 g Transdermal Nightly ??? methyl salicylate-menthol Topical (Top) BID ??? cholecalciferol (Vitamin D3) 1,000 Units Oral Daily ??? hydrocortisone 20 mg Oral QAM ??? pantoprazole 40 mg Oral QAM AC ??? zonisamide 200 mg Oral Nightly Continuous infusions: PRN: ibuprofen, QUEtiapine, polyethylene glycol (MIRALAX)oral powder, simethicone, sodium chloride 0.9 %, lidocaine, bisacodyl, senna-docusate, naphazoline-pheniramine Interval History: -no issues overnight -doing awesome Physical Exam Vitals Range last 24 hrs Temperature Temp: [36.4 ??C (97.6 ??F)-36.6 ??C (97.9 ??F)] Heart Rate Heart Rate: [113-115] Blood Pressure BP: (127-155)/(56-84) Respiratory Rate Resp: [18-24] SpO2 SpO2: [96 %-97 %] Intake/Output Summary (Last 24 hours) at 12/15/17 1650 Last data filed at 12/15/17 1600 Gross per 24 hour Intake 2810 ml Output 650 ml Net 2160 ml Patient Vitals for the past 168 hrs: Weight 12/11/17 0917 92.3 kg (203 lb 7.8 oz) Body mass index is 29.2 kg/(m^2). Physical Exam General - NAD HEENT - anicteric, left eye fixed CV - RRR Lungs - CTAB Abd - Soft, nondistended Ext - no c/c/e Studies reviewed in eDH. Remarkable for the following: LABS: Last 3 wbc, hgb, hct plt Recent Labs 12/06/17 0748 11/14/17 0508 10/22/17 0502 WBC 4.6 5.7 6.6 HGB 11.7* 11.5* 12.9* HCT 38.1* 37.4* 40.5 PLATELET 291 274 339 Last 3 Lytes Recent Labs 12/14/17 1809 12/09/17 0407 12/06/17 0748 NA 145 139 143 K 4.1 3.8 3.7 CL 105 102 104 CO2 21* 22 24 BUN 11 20 23* CREATININE 0.86 0.74* 0.64* Last 3 LFTs Recent Labs 09/04/17 0358 AST 23 ALT 31 ALKPHOS 75 BILITOT 0.5 BILIDIR 0.1 FSBG Trend No results for input(s): POCGLU in the last 72 hours. MICRO: No results for input(s): URINECULTURE in the last 720 hours. No results for input(s): GRAMSTAIN, BFCX, LOWERRESPCX, TISSUECX in the last 720 hours. No results for input(s): BLOODCX in the last 720 hours. ECG: Recent Labs 12/05/17 1729 DIAGLINE Sinus tachycardia Nonspecific ST/T wave abnormality Abnormal ECG When compared with ECG of 04-SEP-2017 22:30, Rate slower Confirmed by MD Oh, Sukhi Walker ([id number]) on 12/06/2017 10:46:47 AM QTCCALC 452 VASCULAR: No results for input(s): VBTEXTRPT in the last 720 hours. 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 11/21 advanced to WBAT BLE with assistive device at all times. Agitated behavior issues may be environmental with baseline agitation and lack of normal routine. De-escalated opioids as not clear pain is driving agitation - will still treat as if L leg pain is part of the issue but try to spare opioids with tylenol and ibuprofen as well now that he is a few months out from acetabular fx repair. Also consolidating sedating meds closer to bedtime to try to achieve better sleep at night. Otherwise try to get him out and about and stimulated/interacting during the day, and if there is something he normally likes to do at nursing home, then try to avail him of that here. Caregiver indicates that this is normal behavior for him. Plan: Left acetabular fracture: Improved -s/p operative repair on 09/04/2017 and orthopedics advanced to WBAT BLE (11/21) -continue scheduled tylenol -continue prn ibuprofen Toxic metabolic encephalopathy on baseline cognitive impairment with past CVA/hemorrhage from pituitary surgery: -encephalopathy seems like it has resolved - his ongoing waxing/waning periods of restlessness and yelling/moaning loudly alternating with periods of relative calm are apparently normal per caregiver -continue quetiapine, trazodone, and melatonin at 8pm (his usual bed time per caregiver) -has additional quetiapine available prn agitation -try to get him active and stimulated during the day -Check bladder scan prn / CIC prn -Bowel regimen -out of net bed now Panhypopituitarism including DI: Stable -Due to 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 -Appreciate endocrinology recommendations. -Decreased hydrocortisone from 20/10/10 to 20/10 per endocrine on 11/16 -Increased synthroid to 200 mcg 11/23. -Seizures managed with home zonisamide 200mg PO QHS per neurology. -treat DI as below DI, Hyponatremia and hypernatremia: sodium stable -outpt ddAVP dosing and fluid restriction are 0.05 mg tid and 3.2 L, respectively - continue these and monitor Na level periodically -appreciate Endocrine assistance Fractured left lower molar: -Likely occurred with seizure and no evidence of acute infection. Extraction to occur in non-urgentmanner pending availability, but per dentistry, not likely anytime soon. Urinary retention: But appears to only be in the morning - closely monitor for now IV access: None Tubes/Drains: None DVT PPX: None as moving alot Anticipated Disposition: Discharge limited by behaviors (rehabilitation) and inability to climb stairs (nursing home) - continue to try to make progress w/ measures described above and ongoing PT/OT Team Pager( Coverage 27/01): #[phone] PCP: NAKIA Cifuentes [phone] Attestation: IPI Certification I certify that I am a D-H credentialed attending provider with admitting privileges and that the patient meets or has met medical necessity to require an inpatient IPI level of care meeting a minimumof two midnights or is on the [facility] inpatient only procedure list (status C) due to: Acetabular fx and hypernatremia FRAN GILLIAM MD 12/15/2017 * Fran Gilliam MD - 12/14/2017 4:55 PM EDT Hospital Medicine Attending Daily Progress Note Admit Date: 09/02/2017 Hospital Day 103 days Active Hospital Problems Diagnosis ??? S/P ORIF left acetabulum fracture 09/04/2017 Dr. Lance ??? Acute urinary retention ??? Diabetes insipidus ??? Adrenal insufficiency ??? Panhypopituitarism ??? Seizure disorder ??? Hypothyroidism Resolved Hospital Problems Diagnosis Date Resolved ??? Postoperative anemia due to acute blood loss 12/09/2017 PM Active Non-Hospital Problems Diagnosis ??? Insomnia ??? Blind ??? CVA (cerebral vascular accident) ??? Urinary incontinence Inpatient Medications: Scheduled ??? traZODone 50 mg Oral Nightly ??? desmopressin 0.05 mg Oral TID ??? acetaminophen 650 mg Oral TID ??? melatonin 9 mg Oral Nightly ??? QUEtiapine 250 mg Oral Nightly ??? levothyroxine 200 mcg Oral QAM ??? calcium carbonate 500 mg Oral Nightly ??? hydrocortisone 10 mg Oral Daily at Noon ??? senna-docusate 2 tablet Oral BID ??? sodium chloride 0.9 % 5 mL Intravenous Q12H ??? testosterone 5 g Transdermal Nightly ??? methyl salicylate-menthol Topical (Top) BID ??? cholecalciferol (Vitamin D3) 1,000 Units Oral Daily ??? hydrocortisone 20 mg Oral QAM ??? pantoprazole 40 mg Oral QAM AC ??? zonisamide 200 mg Oral Nightly Continuous infusions: PRN: ibuprofen, QUEtiapine, polyethylene glycol (MIRALAX)oral powder, simethicone, sodium chloride 0.9 %, lidocaine, bisacodyl, senna-docusate, naphazoline-pheniramine Interval History: -no issues overnight -doing awesome -bored Physical Exam Vitals Range last 24 hrs Temperature Temp: [36.5 ??C (97.7 ??F)] Heart Rate Heart Rate: [101-102] Blood Pressure BP: (129-145)/(64-91) Respiratory Rate Resp: [18-24] SpO2 SpO2: [97 %] Intake/Output Summary (Last 24 hours) at 12/14/17 1655 Last data filed at 12/14/17 1410 Gross per 24 hour Intake 2510 ml Output 975 ml Net 1535 ml Patient Vitals for the past 168 hrs: Weight 12/11/17 0917 92.3 kg (203 lb 7.8 oz) Body mass index is 29.2 kg/(m^2). Physical Exam General - NAD HEENT - anicteric, left eye fixed CV - RRR Lungs - CTAB Abd - Soft, nondistended Ext - no c/c/e Studies reviewed in eDH. Remarkable for the following: LABS: Last 3 wbc, hgb, hct plt Recent Labs 12/06/17 0748 11/14/17 0508 10/22/17 0502 WBC 4.6 5.7 6.6 HGB 11.7* 11.5* 12.9* HCT 38.1* 37.4* 40.5 PLATELET 291 274 339 Last 3 Lytes Recent Labs 12/09/17 0407 12/06/17 0748 12/05/17 1317 12/03/17 1315 NA 139 143 143 < > 142 K 3.8 3.7 4.0 < > 3.9 CL 102 104 105 < > 105 CO2 22 24 21* < > 20* BUN 20 23* -- -- 24* CREATININE 0.74* 0.64* -- -- 0.84 < > = values in this interval not displayed. Last 3 LFTs Recent Labs 09/04/17 0358 AST 23 ALT 31 ALKPHOS 75 BILITOT 0.5 BILIDIR 0.1 FSBG Trend No results for input(s): POCGLU in the last 72 hours. MICRO: No results for input(s): URINECULTURE in the last 720 hours. No results for input(s): GRAMSTAIN, BFCX, LOWERRESPCX, TISSUECX in the last 720 hours. No results for input(s): BLOODCX in the last 720 hours. ECG: Recent Labs 12/05/17 1729 DIAGLINE Sinus tachycardia Nonspecific ST/T wave abnormality Abnormal ECG When compared with ECG of 04-SEP-2017 22:30, Rate slower Confirmed by MD Oh, Sukhi Walker ([id number]) on 12/06/2017 10:46:47 AM QTCCALC 452 VASCULAR: No results for input(s): VBTEXTRPT in the last 720 hours. 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 11/21 advanced to WBAT BLE with assistive device at all times. Agitated behavior issues may be environmental with baseline agitation and lack of normal routine. De-escalated opioids as not clear pain is driving agitation - will still treat as if L leg pain is part of the issue but try to spare opioids with tylenol and ibuprofen as well now that he is a few months out from acetabular fx repair. Also consolidating sedating meds closer to bedtime to try to achieve better sleep at night. Otherwise try to get him out and about and stimulated/interacting during the day, and if there is something he normally likes to do at nursing home, then try to avail him of that here. Caregiver indicates that this is normal behavior for him. Plan: Left acetabular fracture: Improved -s/p operative repair on 09/04/2017 and orthopedics advanced to WBAT BLE (11/21) -continue scheduled and prn tylenol -continue scheduled ibuprofen Toxic metabolic encephalopathy on baseline cognitive impairment with past CVA/hemorrhage from pituitary surgery: -encephalopathy seems like it has resolved - his ongoing waxing/waning periods of restlessness and yelling/moaning loudly alternating with periods of relative calm are apparently normal per caregiver -continue quetiapine, trazodone, and melatonin at 8pm (his usual bed time per caregiver) -has additional quetiapine available prn agitation -try to get him active and stimulated during the day -Check bladder scan prn / CIC prn -Bowel regimen -out of net bed now Panhypopituitarism including DI: Stable -Due to 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 -Appreciate endocrinology recommendations. -Decreased hydrocortisone from 25/04/10 to 25/04 per endocrine on 11/16 -Increased synthroid to 200 mcg 11/23. -Seizures managed with home zonisamide 200mg PO QHS per neurology. -treat DI as below DI, Hyponatremia and hypernatremia: sodium stable -outpt ddAVP dosing and fluid restriction are 0.05 mg tid and 3.2 L, respectively - continue these and monitor Na level periodically -appreciate Endocrine assistance Fractured left lower molar: -Likely occurred with seizure and no evidence of acute infection. Extraction to occur in non-urgentmanner pending availability, but per dentistry, not likely anytime soon. Urinary retention: But appears to only be in the morning - closely monitor for now IV access: None Tubes/Drains: None DVT PPX: None as moving alot Anticipated Disposition: Discharge limited by behaviors (rehabilitation) and inability to climb stairs (nursing home) - continue to try to make progress w/ measures described above and ongoing PT/OT Team Pager( Coverage 27/01): #[phone] PCP: NAKIA Cifuentes [phone] Attestation: IPI Certification I certify that I am a D-H credentialed attending provider with admitting privileges and that the patient meets or has met medical necessity to require an inpatient IPI level of care meeting a minimumof two midnights or is on the CMS inpatient only procedure list (status C) due to: Acetabular fx and hypernatremia FRAN GILLIAM MD 12/14/2017 * Fran Gilliam MD - 12/13/2017 11:10 AM EDT [facility] Medicine Attending Daily Progress Note Admit Date: 09/02/2017 Hospital Day 102 days Active Hospital Problems Diagnosis ??? S/P ORIF left acetabulum fracture 09/04/2017 Dr. Lance ??? Acute urinary retention ??? Diabetes insipidus ??? Adrenal insufficiency ??? Panhypopituitarism ??? Seizure disorder ??? Hypothyroidism Resolved Hospital Problems Diagnosis Date Resolved ??? Postoperative anemia due to acute blood loss 12/09/2017 [facility] Active Non-Hospital Problems Diagnosis ??? Insomnia ??? Blind ??? CVA (cerebral vascular accident) ??? Urinary incontinence Inpatient Medications: Scheduled ??? traZODone 50 mg Oral Nightly ??? desmopressin 0.05 mg Oral TID ??? acetaminophen 650 mg Oral TID ??? ibuprofen 400 mg Oral TID ??? melatonin 9 mg Oral Nightly ??? QUEtiapine 250 mg Oral Nightly ??? levothyroxine 200 mcg Oral QAM ??? calcium carbonate 500 mg Oral Nightly ??? hydrocortisone 10 mg Oral Daily at Noon ??? senna-docusate 2 tablet Oral BID ??? sodium chloride 0.9 % 5 mL Intravenous Q12H ??? testosterone 5 g Transdermal Nightly ??? methyl salicylate-menthol Topical (Top) BID ??? cholecalciferol (Vitamin D3) 1,000 Units Oral Daily ??? hydrocortisone 20 mg Oral QAM ??? pantoprazole 40 mg Oral QAM AC ??? zonisamide 200 mg Oral Nightly Continuous infusions: PRN: HYDROmorphone, acetaminophen, QUEtiapine, polyethylene glycol (MIRALAX)oral powder, simethicone, sodium chloride 0.9 %, lidocaine, bisacodyl, senna- docusate, naphazoline-pheniramine Interval History: -no issues overnight -having a good day -doing pull-ups on the trapeze in bed Physical Exam Vitals Range last 24 hrs Temperature Temp: [36.5 ??C (97.7 ??F)-36.6 ??C (97.9 ??F)] Heart Rate Heart Rate: [101-102] Blood Pressure BP: (126-145)/(72-91) Respiratory Rate Resp: [20-24] SpO2 SpO2: [96 %-97 %] Intake/Output Summary (Last 24 hours) at 12/13/172047 Last data filed at 12/13/17 1800 Gross per 24 hour Intake 2500 ml Output 1125 ml Net 1375 ml Patient Vitals for the past 168 hrs: Weight 12/11/17 0917 92.3 kg (203 lb 7.8 oz) Body mass index is 29.2 kg/(m^2). Physical Exam General - NAD HEENT - anicteric, left eye fixed CV - RRR Lungs - CTAB Abd - Soft, nondistended Ext - no c/c/e Studies reviewed in eDH. Remarkable for the following: LABS: Last 3 wbc, hgb, hct plt Recent Labs 12/06/17 0748 11/14/17 0508 10/22/17 0502 WBC 4.6 5.7 6.6 HGB 11.7* 11.5* 12.9* HCT 38.1* 37.4* 40.5 PLATELET 291 274 339 Last 3 Lytes Recent Labs 12/09/17 0407 12/06/17 0748 12/05/17 1317 12/03/17 1315 NA 139 143 143 < > 142 K 3.8 3.7 4.0 < > 3.9 CL 102 104 105 < > 105 CO2 22 24 21* < > 20* BUN 20 23* -- -- 24* CREATININE 0.74* 0.64* -- -- 0.84 < > = values in this interval not displayed. Last 3 LFTs Recent Labs 09/04/17 0358 AST 23 ALT 31 ALKPHOS 75 BILITOT 0.5 BILIDIR 0.1 FSBG Trend No results for input(s): POCGLU in the last 72 hours. MICRO: No results for input(s): URINECULTURE in the last 720 hours. No results for input(s): GRAMSTAIN, BFCX, LOWERRESPCX, TISSUECX in the last 720 hours. No results for input(s): BLOODCX in the last 720 hours. ECG: Recent Labs 12/05/17 1729 DIAGLINE Sinus tachycardia Nonspecific ST/T wave abnormality Abnormal ECG When compared with ECG of 04-SEP-2017 22:30, Rate slower Confirmed by MD Oh, Sukhi Walker ([id number]) on 12/06/2017 10:46:47 AM QTCCALC 452 VASCULAR: No results for input(s): VBTEXTRPT in the last 720 hours. 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 11/21 advanced to WBAT BLE with assistive device at all times. Agitated behavior issues may be environmental with baseline agitation and lack of normal routine. De-escalated opioids as not clear pain is driving agitation - will still treat as if L leg pain is part of the issue but try to spare opioids with tylenol and ibuprofen as well now that he is a few months out from acetabular fx repair. Also consolidating sedating meds closer to bedtime to try to achieve better sleep at night. Otherwise try to get him out and about and stimulated/interacting during the day, and if there is something he normally likes to do at nursing home, then try to avail him of that here. Caregiver indicates that this is normal behavior for him. Plan: Left acetabular fracture: Improved -s/p operative repair on 09/04/2017 and orthopedics advanced to WBAT BLE (11/21) -continue scheduled and prn tylenol -continue scheduled ibuprofen Toxic metabolic encephalopathy on baseline cognitive impairment with past CVA/hemorrhage from pituitary surgery: -encephalopathy seems like it has resolved - his ongoing waxing/waning periods of restlessness and yelling/moaning loudly alternating with periods of relative calm are apparently normal per caregiver -continue quetiapine, trazodone, and melatonin at 8pm (his usual bed time per caregiver) -has additional quetiapine available prn agitation -Otherwise try to get him active during the day -Check bladder scan prn -Bowel regimen -net bed for safety as needed - RN trying out of net bed today 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 -Appreciate endocrinology recommendations. -Decreased hydrocortisone from 20/10/10 to 20/10 per endocrine on 11/16 -Increased synthroid to 200 mcg 11/23. -Seizures managed with home zonisamide 200mg PO QHS per neurology. -treat DI as below DI, Hyponatremia and hypernatremia: sodium stable -outpt ddAVP dosing and fluid restriction are 0.05 mg tid and 3.2 L, respectively - continue these and monitor Na level periodically -appreciate Endocrine assistance Fractured left lower molar: -Likely occurred with seizure and no evidence of acute infection. Extraction to occur in non-urgentmanner pending availability, but per dentistry, not likely anytime soon. Urinary retention: But appears to only be in the morning - closely monitor for now IV access: None Tubes/Drains: None DVT PPX: None as moving alot Anticipated Disposition: Discharge limited by behaviors (rehabilitation) and inability to climb stairs (nursing home) - continue to try to make progress w/ measures described above and ongoing PT/OT Team Pager( Coverage 27/01): #[phone] PCP: NAKIA Cifuentes [phone] Attestation: IPI Certification I certify that I am a D-H credentialed attending provider with admitting privileges and that the patient meets or has met medical necessity to require an inpatient IPI level of care meeting a minimumof two midnights or is on the CMS inpatient only procedure list (status C) due to: Acetabular fx and hypernatremia FRAN GILLIAM MD 12/13/2017 * Danay Monge MD - 12/12/2017 11:15 AM EDT [facility] Medicine Attending Daily Progress Note Admit Date: 09/02/2017 Hospital Day 101 days Active Hospital Problems Diagnosis ??? S/P ORIF left acetabulum fracture 09/04/2017 Dr. Lance ??? Acute urinary retention ??? Diabetes insipidus ??? Adrenal insufficiency ??? Panhypopituitarism ??? Seizure disorder ??? Hypothyroidism Resolved Hospital Problems Diagnosis Date Resolved ??? Postoperative anemia due to acute blood loss 12/09/2017 [facility] Active Non-Hospital Problems Diagnosis ??? Insomnia ??? Blind ??? CVA (cerebral vascular accident) ??? Urinary incontinence Inpatient Medications: Scheduled ??? traZODone 50 mg Oral Nightly ??? desmopressin 0.05 mg Oral TID ??? acetaminophen 650 mg Oral TID ??? ibuprofen 400 mg Oral TID ??? melatonin 9 mg Oral Nightly ??? QUEtiapine 250 mg Oral Nightly ??? levothyroxine 200 mcg Oral QAM ??? calcium carbonate 500 mg Oral Nightly ??? hydrocortisone 10 mg Oral Daily at Noon ??? senna-docusate 2 tablet Oral BID ??? sodium chloride 0.9 % 5 mL Intravenous Q12H ??? testosterone 5 g Transdermal Nightly ??? methyl salicylate-menthol Topical (Top) BID ??? cholecalciferol (Vitamin D3) 1,000 Units Oral Daily ??? hydrocortisone 20 mg Oral QAM ??? pantoprazole 40 mg Oral QAM AC ??? zonisamide 200 mg Oral Nightly Continuous infusions: PRN: HYDROmorphone, acetaminophen, QUEtiapine, polyethylene glycol (MIRALAX)oral powder, simethicone, sodium chloride 0.9 %, lidocaine, bisacodyl, senna- docusate, naphazoline-pheniramine Interval History: cooperative, no issues overnight Physical Exam Vitals Range last 24 hrs Temperature Temp: [36.5 ??C (97.7 ??F)-36.8 ??C (98.2 ??F)] Heart Rate Heart Rate: [83-113] Blood Pressure BP: (132-161)/(77-90) Respiratory Rate Resp: [20-22] SpO2 SpO2: [97 %-98 %] Intake/Output Summary (Last 24 hours) at 12/12/17 1115 Last data filed at 12/12/17 0640 Gross per 24 hour Intake 760 ml Output 700 ml Net 60 ml Patient Vitals for the past 168 hrs: Weight 12/11/17 0917 92.3 kg (203 lb 7.8 oz) Body mass index is 29.2 kg/(m^2). Physical Exam General - NAD HEENT - anicteric, left eye fixed CV - RRR Lungs - CTAB Abd - Soft, nondistended Ext - no c/c/e Studies reviewed in eDH. Remarkable for the following: LABS: Last 3 wbc, hgb, hct plt Recent Labs 12/06/17 0748 11/14/17 0508 10/22/17 0502 WBC 4.6 5.7 6.6 HGB 11.7* 11.5* 12.9* HCT 38.1* 37.4* 40.5 PLATELET 291 274 339 Last 3 Lytes Recent Labs 12/09/17 0407 12/06/17 0748 12/05/17 1317 12/03/17 1315 NA 139 143 143 < > 142 K 3.8 3.7 4.0 < > 3.9 CL 102 104 105 < > 105 CO2 22 24 21* < > 20* BUN 20 23* -- -- 24* CREATININE 0.74* 0.64* -- -- 0.84 < > = values in this interval not displayed. Last 3 LFTs Recent Labs 09/04/17 0358 AST 23 ALT 31 ALKPHOS 75 BILITOT 0.5 BILIDIR 0.1 FSBG Trend No results for input(s): POCGLU in the last 72 hours. MICRO: No results for input(s): URINECULTURE in the last 720 hours. No results for input(s): GRAMSTAIN, BFCX, LOWERRESPCX, TISSUECX in the last 720 hours. No results for input(s): BLOODCX in the last 720 hours. ECG: Recent Labs 12/05/17 1729 DIAGLINE Sinus tachycardia Nonspecific ST/T wave abnormality Abnormal ECG When compared with ECG of 04-SEP-2017 22:30, Rate slower Confirmed by MD Oh, Sukhi Walker ([id number]) on 12/06/2017 10:46:47 AM QTCCALC 452 VASCULAR: No results for input(s): VBTEXTRPT in the last 720 hours. 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 11/21 advanced to WBAT BLE with assistive device at all times. Agitated behavior issues may be environmental with baseline agitation and lack of normal routine - difficult to assess if he is in pain given can be consistently agitated but he does seem to indicatesome L leg pain. De-escalating opioids as not clear pain is driving agitation - will still treat davis L leg pain is part of the issue but try to spare opioids with tylenol and ibuprofen as well now that he is a few months out from acetabular fx repair. Also consolidating sedating meds closer to bedtime to try to achieve better sleep at night. Otherwise try to get him out and about and stimulated/interacting during the day, and if there is something he normally likes to do at nursing home, then try to avail him of that here. Caregiver indicates that this is normal behavior for him. Plan: Left acetabular fracture: Improved -s/p operative repair on 09/04/2017 and orthopedics advanced to WBAT BLE (11/21) -continue scheduled and prn tylenol -continue scheduled ibuprofen Toxic metabolic encephalopathy on baseline cognitive impairment with past CVA/hemorrhage from pituitary surgery: -encephalopathy seems like it has resolved - his ongoing waxing/waning periods of restlessness and yelling/moaning loudly alternating with periods of relative calm are apparently normal per caregiver -continue quetiapine, trazodone, and melatonin at 8pm (his usual bed time per caregiver) -has additional seroquel available prn agitation -Otherwise try to get him active during the day -Check bladder scan prn -Bowel regimen -net bed for safety as needed - RN trying out of net bed today Panhypopituitarism including DI: Stable -Due to 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 -Appreciate endocrinology recommendations. -Decreased hydrocortisone from 20/10/10 to 20/10 per endocrine on 11/16 -Increased synthroid to 200 mcg 11/23. -Seizures managed with home zonisamide 200mg PO QHS per neurology. -treat DI as below DI, Hyponatremia and hypernatremia: sodium stable - Outpt ddAVP dosing and fluid restriction are 0.05 mg tid and 3.2 L, respectively -appreciate Endocrine assistance Fractured left lower molar: -Likely occurred with seizure and no evidence of acute infection. Extraction to occur in non-urgentmanner pending availability, but per dentistry, not likely anytime soon. Urinary retention: But appears to only be in the morning - closely monitor for now IV access: None Tubes/Drains: None DVT PPX: None as moving alot Anticipated Disposition: Discharge limited by behaviors (rehabilitation) and inability to climb stairs (nursing home) - continue to try to make progress w/ measures described above and ongoing PT, respectively Team Pager( Coverage 27/01): #[phone] PCP: NAKIA Cifuentes [phone] Attestation: IPI Certification I certify that I am a D-H credentialed attending provider with admitting privileges and that the patient meets or has met medical necessity to require an inpatient IPI level of care meeting a minimumof two midnights or is on the [facility] inpatient only procedure list (status C) due to: Acetabular fx and hypernatremia PCP: NAKIA Cifuentes [phone] DANAY MONGE MD 12/12/2017 * Danay Monge MD - 12/11/2017 12:37 PM EDT [facility] Medicine Attending Daily Progress Note Admit Date: 09/02/2017 Hospital Day 100 days Active Hospital Problems Diagnosis ??? S/P ORIF left acetabulum fracture 09/04/2017 Dr. Lance ??? Acute urinary retention ??? Diabetes insipidus ??? Adrenal insufficiency ??? Panhypopituitarism ??? Seizure disorder ??? Hypothyroidism Resolved Hospital Problems Diagnosis Date Resolved ??? Postoperative anemia due to acute blood loss 12/09/2017 [facility] Active Non-Hospital Problems Diagnosis ??? Insomnia ??? Blind ??? CVA (cerebral vascular accident) ??? Urinary incontinence Inpatient Medications: Scheduled ??? traZODone 50 mg Oral Nightly ??? desmopressin 0.05 mg Oral TID ??? acetaminophen 650 mg Oral TID ??? ibuprofen 400 mg Oral TID ??? melatonin 9 mg Oral Nightly ??? QUEtiapine 250 mg Oral Nightly ??? levothyroxine 200 mcg Oral QAM ??? calcium carbonate 500 mg Oral Nightly ??? hydrocortisone 10 mg Oral Daily at Noon ??? senna-docusate 2 tablet Oral BID ??? sodium chloride 0.9 % 5 mL Intravenous Q12H ??? testosterone 5 g Transdermal Nightly ??? methyl salicylate-menthol Topical (Top) BID ??? cholecalciferol (Vitamin D3) 1,000 Units Oral Daily ??? hydrocortisone 20 mg Oral QAM ??? pantoprazole 40 mg Oral QAM AC ??? zonisamide 200 mg Oral Nightly Continuous infusions: PRN: HYDROmorphone, acetaminophen, QUEtiapine, polyethylene glycol (MIRALAX)oral powder, simethicone, sodium chloride 0.9 %, lidocaine, bisacodyl, senna- docusate, naphazoline-pheniramine Interval History: cooperative, no issues overnight Physical Exam Vitals Range last 24 hrs Temperature Temp: [36.2 ??C (97.2 ??F)] Heart Rate Heart Rate: -- Blood Pressure BP: (120-154)/(73-92) Respiratory Rate Resp: [20-22] SpO2 SpO2: [95 %-97 %] Intake/Output Summary (Last 24 hours) at 12/11/17 1237 Last data filed at 12/11/17 1232 Gross per 24 hour Intake 1850 ml Output 950 ml Net 900 ml Patient Vitals for the past 168 hrs: Weight 12/11/17 0917 92.3 kg (203 lb 7.8 oz) Body mass index is 29.2 kg/(m^2). Physical Exam General - NAD HEENT - anicteric, left eye fixed CV - RRR Lungs - CTAB Abd - Soft, nondistended Ext - no c/c/e Studies reviewed in eDH. Remarkable for the following: LABS: Last 3 wbc, hgb, hct plt Recent Labs 12/06/17 0748 11/14/17 0508 10/22/17 0502 WBC 4.6 5.7 6.6 HGB 11.7* 11.5* 12.9* HCT 38.1* 37.4* 40.5 PLATELET 291 274 339 Last 3 Lytes Recent Labs 12/09/17 0407 12/06/17 0748 12/05/17 1317 12/03/17 1315 NA 139 143 143 < > 142 K 3.8 3.7 4.0 < > 3.9 CL 102 104 105 < > 105 CO2 22 24 21* < > 20* BUN 20 23* -- -- 24* CREATININE 0.74* 0.64* -- -- 0.84 < > = values in this interval not displayed. Last 3 LFTs Recent Labs 09/04/17 0358 AST 23 ALT 31 ALKPHOS 75 BILITOT 0.5 BILIDIR 0.1 FSBG Trend No results for input(s): POCGLU in the last 72 hours. MICRO: No results for input(s): URINECULTURE in the last 720 hours. No results for input(s): GRAMSTAIN, BFCX, LOWERRESPCX, TISSUECX in the last 720 hours. No results for input(s): BLOODCX in the last 720 hours. ECG: Recent Labs 12/05/17 1729 DIAGLINE Sinus tachycardia Nonspecific ST/T wave abnormality Abnormal ECG When compared with ECG of 04-SEP-2017 22:30, Rate slower Confirmed by MD Oh, Sukhi Walker ([id number]) on 12/06/2017 10:46:47 AM QTCCALC 452 VASCULAR: No results for input(s): VBTEXTRPT in the last 720 hours. 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 11/21 advanced to WBAT BLE with assistive device at all times. Agitated behavior issues may be environmental with baseline agitation and lack of normal routine - difficult to assess if he is in pain given can be consistently agitated but he does seem to indicatesome L leg pain. De-escalating opioids as not clear pain is driving agitation - will still treat davis L leg pain is part of the issue but try to spare opioids with tylenol and ibuprofen as well now that he is a few months out from acetabular fx repair. Also consolidating sedating meds closer to bedtime to try to achieve better sleep at night. Otherwise try to get him out and about and stimulated/interacting during the day, and if there is something he normally likes to do at nursing home, then try to avail him of that here. Caregiver indicates that this is normal behavior for him. Plan: Left acetabular fracture: Improved -s/p operative repair on 09/04/2017 and orthopedics advanced to WBAT BLE (11/21) -continue scheduled and prn tylenol -continue scheduled ibuprofen Toxic metabolic encephalopathy on baseline cognitive impairment with past CVA/hemorrhage from pituitary surgery: -encephalopathy seems like it has resolved - his ongoing waxing/waning periods of restlessness and yelling/moaning loudly alternating with periods of relative calm are apparently normal per caregiver -continue quetiapine, trazodone, and melatonin at 8pm (his usual bed time per caregiver) -has additional seroquel available prn agitation -Otherwise try to get him active during the day -Check bladder scan prn -Bowel regimen -net bed for safety as needed - RN trying out of net bed today Panhypopituitarism including DI: Stable -Due to 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 -Appreciate endocrinology recommendations. -Decreased hydrocortisone from 20/10/10 to 20/10 per endocrine on 11/16 -Increased synthroid to 200 mcg 11/23. -Seizures managed with home zonisamide 200mg PO QHS per neurology. -treat DI as below DI, Hyponatremia and hypernatremia: sodium stable - Outpt ddAVP dosing and fluid restriction are 0.05 mg tid and 3.2 L, respectively -appreciate Endocrine assistance Fractured left lower molar: -Likely occurred with seizure and no evidence of acute infection. Extraction to occur in non-urgentmanner pending availability, but per dentistry, not likely anytime soon. Urinary retention: But appears to only be in the morning - closely monitor for now IV access: None Tubes/Drains: None DVT PPX: None as moving alot Anticipated Disposition: Discharge limited by behaviors (rehabilitation) and inability to climb stairs (nursing home) - continue to try to make progress w/ measures described above and ongoing PT, respectively Team Pager( Coverage 27/01): #[phone] PCP: NAKIA Cifuentes [phone] Attestation: IPI Certification I certify that I am a D-H credentialed attending provider with admitting privileges and that the patient meets or has met medical necessity to require an inpatient IPI level of care meeting a minimumof two midnights or is on the [facility] inpatient only procedure list (status C) due to: Acetabular fx and hypernatremia PCP: NAKIA Cifuentes [phone] DANAY MONGE MD 12/11/2017 * Danay Monge MD - 12/10/2017 12:12 PM EDT Hospital Medicine Attending Daily Progress Note Admit Date: 09/02/2017 Hospital Day 99 days Active Hospital Problems Diagnosis ??? S/P ORIF left acetabulum fracture 09/04/2017 Dr. Lance ??? Acute urinary retention ??? Diabetes insipidus ??? Adrenal insufficiency ??? Panhypopituitarism ??? Seizure disorder ??? Hypothyroidism Resolved Hospital Problems Diagnosis Date Resolved ??? Postoperative anemia due to acute blood loss 12/09/2017 [facility] Active Non-Hospital Problems Diagnosis ??? Insomnia ??? Blind ??? CVA (cerebral vascular accident) ??? Urinary incontinence Inpatient Medications: Scheduled ??? traZODone 50 mg Oral Nightly ??? desmopressin 0.05 mg Oral TID ??? acetaminophen 650 mg Oral TID ??? ibuprofen 400 mg Oral TID ??? melatonin 9 mg Oral Nightly ??? QUEtiapine 250 mg Oral Nightly ??? levothyroxine 200 mcg Oral QAM ??? calcium carbonate 500 mg Oral Nightly ??? hydrocortisone 10 mg Oral Daily at Noon ??? senna-docusate 2 tablet Oral BID ??? sodium chloride 0.9 % 5 mL Intravenous Q12H ??? testosterone 5 g Transdermal Nightly ??? methyl salicylate-menthol Topical (Top) BID ??? cholecalciferol (Vitamin D3) 1,000 Units Oral Daily ??? hydrocortisone 20 mg Oral QAM ??? pantoprazole 40 mg Oral QAM AC ??? zonisamide 200 mg Oral Nightly Continuous infusions: PRN: HYDROmorphone, acetaminophen, QUEtiapine, polyethylene glycol (MIRALAX)oral powder, simethicone, sodium chloride 0.9 %, lidocaine, bisacodyl, senna- docusate, naphazoline-pheniramine Interval History: cooperative, no issues overnight Physical Exam Vitals Range last 24 hrs Temperature Temp: [36.4 ??C (97.5 ??F)-36.7 ??C (98.1 ??F)] Heart Rate Heart Rate: [83-116] Blood Pressure BP: (128-152)/(79-96) Respiratory Rate Resp: [19-24] SpO2 SpO2: [96 %-98 %] Intake/Output Summary (Last 24 hours) at 12/10/17 1212 Last data filed at 12/10/17 1100 Gross per 24 hour Intake 1670 ml Output 3225 ml Net -1555 ml No data found. There is no height or weight on file to calculate BMI. Physical Exam General - NAD HEENT - anicteric, left eye fixed CV - RRR Lungs - CTAB Abd - Soft, nondistended Ext - no c/c/e Studies reviewed in eDH. Remarkable for the following: LABS: Last 3 wbc, hgb, hct plt Recent Labs 12/06/17 0748 11/14/17 0508 10/22/17 0502 WBC 4.6 5.7 6.6 HGB 11.7* 11.5* 12.9* HCT 38.1* 37.4* 40.5 PLATELET 291 274 339 Last 3 Lytes Recent Labs 12/09/17 0407 12/06/17 0748 12/05/17 1317 12/03/17 1315 NA 139 143 143 < > 142 K 3.8 3.7 4.0 < > 3.9 CL 102 104 105 < > 105 CO2 22 24 21* < > 20* BUN 20 23* -- -- 24* CREATININE 0.74* 0.64* -- -- 0.84 < > = values in this interval not displayed. Last 3 LFTs Recent Labs 09/04/17 0358 AST 23 ALT 31 ALKPHOS 75 BILITOT 0.5 BILIDIR 0.1 FSBG Trend No results for input(s): POCGLU in the last 72 hours. MICRO: No results for input(s): URINECULTURE in the last 720 hours. No results for input(s): GRAMSTAIN, BFCX, LOWERRESPCX, TISSUECX in the last 720 hours. No results for input(s): BLOODCX in the last 720 hours. ECG: Recent Labs 12/05/17 1729 DIAGLINE Sinus tachycardia Nonspecific ST/T wave abnormality Abnormal ECG When compared with ECG of 04-SEP-2017 22:30, Rate slower Confirmed by MD Oh, Sukhi Walker ([id number]) on 12/06/2017 10:46:47 AM QTCCALC 452 VASCULAR: No results for input(s): VBTEXTRPT in the last 720 hours. 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 11/21 advanced to WBAT BLE with assistive device at all times. Agitated behavior issues may be environmental with baseline agitation and lack of normal routine - difficult to assess if he is in pain given can be consistently agitated but he does seem to indicatesome L leg pain. De-escalating opioids as not clear pain is driving agitation - will still treat davis L leg pain is part of the issue but try to spare opioids with tylenol and ibuprofen as well now that he is a few months out from acetabular fx repair. Also consolidating sedating meds closer to bedtime to try to achieve better sleep at night. Otherwise try to get him out and about and stimulated/interacting during the day, and if there is something he normally likes to do at nursing home, then try to avail him of that here. Caregiver indicates that this is normal behavior for him. Plan: Left acetabular fracture: Improved -s/p operative repair on 09/04/2017 and orthopedics advanced to WBAT BLE (11/21) -continue scheduled and prn tylenol -continue scheduled ibuprofen Toxic metabolic encephalopathy on baseline cognitive impairment with past CVA/hemorrhage from pituitary surgery: -encephalopathy seems like it has resolved - his ongoing waxing/waning periods of restlessness and yelling/moaning loudly alternating with periods of relative calm are apparently normal per caregiver -continue quetiapine, trazodone, and melatonin at 8pm (his usual bed time per caregiver) -has additional seroquel available prn agitation -Otherwise try to get him active during the day -Check bladder scan prn -Bowel regimen -net bed for safety as needed - RN trying out of net bed today Panhypopituitarism including DI: Stable -Due to 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 -Appreciate endocrinology recommendations. -Decreased hydrocortisone from 20/10/10 to 20/10 per endocrine on 11/16 -Increased synthroid to 200 mcg 11/23. -Seizures managed with home zonisamide 200mg PO QHS per neurology. -treat DI as below DI, Hyponatremia and hypernatremia: sodium stable - Outpt ddAVP dosing and fluid restriction are 0.05 mg tid and 3.2 L, respectively -appreciate Endocrine assistance Fractured left lower molar: -Likely occurred with seizure and no evidence of acute infection. Extraction to occur in non-urgentmanner pending availability, but per dentistry, not likely anytime soon. Urinary retention: But appears to only be in the morning - closely monitor for now IV access: None Tubes/Drains: None DVT PPX: None as moving alot Anticipated Disposition: Discharge limited by behaviors (rehabilitation) and inability to climb stairs (nursing home) - continue to try to make progress w/ measures described above and ongoing PT, respectively Team Pager( Coverage 27/01): #[phone] PCP: NAKIA Cifuentes [phone] Attestation: IPI Certification I certify that I am a D-H credentialed attending provider with admitting privileges and that the patient meets or has met medical necessity to require an inpatient IPI level of care meeting a minimumof two midnights or is on the [facility] inpatient only procedure list (status C) due to: Acetabular fx and hypernatremia PCP: NAKIA Cifuentes [phone] DANAY MONGE MD 12/10/2017 * Ren Sanchez III, MD - 12/09/2017 3:07 PM EDT Hospital Medicine Attending Daily Progress Note Admit Date: 09/02/2017 Hospital Day 98 days Active Hospital Problems Diagnosis ??? S/P ORIF left acetabulum fracture 09/04/2017 Dr. Lance ??? Acute urinary retention ??? Diabetes insipidus ??? Adrenal insufficiency ??? Panhypopituitarism ??? Seizure disorder ??? Hypothyroidism Resolved Hospital Problems Diagnosis Date Resolved ??? Postoperative anemia due to acute blood loss 12/09/2017 H Active Non-Hospital Problems Diagnosis ??? Insomnia ??? Blind ??? CVA (cerebral vascular accident) ??? Urinary incontinence Inpatient Medications: Scheduled ??? desmopressin 0.05 mg Oral TID ??? traZODone 100 mg Oral Nightly ??? acetaminophen 650 mg Oral TID ??? ibuprofen 400 mg Oral TID ??? melatonin 9 mg Oral Nightly ??? QUEtiapine 250 mg Oral Nightly ??? levothyroxine 200 mcg Oral QAM ??? calcium carbonate 500 mg Oral Nightly ??? hydrocortisone 10 mg Oral Daily at Noon ??? senna-docusate 2 tablet Oral BID ??? sodium chloride 0.9 % 5 mL Intravenous Q12H ??? testosterone 5 g Transdermal Nightly ??? methyl salicylate-menthol Topical (Top) BID ??? cholecalciferol (Vitamin D3) 1,000 Units Oral Daily ??? hydrocortisone 20 mg Oral QAM ??? pantoprazole 40 mg Oral QAM AC ??? zonisamide 200 mg Oral Nightly Continuous infusions: PRN: HYDROmorphone, acetaminophen, QUEtiapine, polyethylene glycol (MIRALAX)oral powder, simethicone, sodium chloride 0.9 %, lidocaine, bisacodyl, senna- docusate, naphazoline-pheniramine Interval History: Urinary retention noted overnight and AM. Straight cath for 1 Liter this afternoon. He denies pain. Physical Exam Vitals Range last 24 hrs Temperature Temp: [36.1 ??C (97 ??F)-36.7 ??C (98.1 ??F)] Heart Rate Heart Rate: [87-98] Blood Pressure BP: (138-154)/(76-82) Respiratory Rate Resp: [22-24] SpO2 SpO2: [97 %-98 %] Intake/Output Summary (Last 24 hours) at 12/09/17 1514 Last data filed at 12/09/17 1300 Gross per 24 hour Intake 2367 ml Output 2650 ml Net -283 ml No data found. There is no height or weight on file to calculate BMI. Physical Exam General - NAD HEENT - anicteric, left eye fixed CV - RRR Lungs - CTAB Abd - Soft, nondistended Ext - no c/c/e Studies reviewed in eDH. Remarkable for the following: LABS: Last 3 wbc, hgb, hct plt Recent Labs 12/06/17 0748 11/14/17 0508 10/22/17 0502 WBC 4.6 5.7 6.6 HGB 11.7* 11.5* 12.9* HCT 38.1* 37.4* 40.5 PLATELET 291 274 339 Last 3 Lytes Recent Labs 12/09/17 0407 12/06/17 0748 12/05/17 1317 12/03/17 1315 NA 139 143 143 < > 142 K 3.8 3.7 4.0 < > 3.9 CL 102 104 105 < > 105 CO2 22 24 21* < > 20* BUN 20 23* -- -- 24* CREATININE 0.74* 0.64* -- -- 0.84 < > = values in this interval not displayed. 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 11/21 advanced to WBAT BLE with assistive device at all times. Agitated behavior issues may be environmental with baseline agitation and lack of normal routine - difficult to assess if he is in pain given can be consistently agitated but he does seem to indicatesome L leg pain. De-escalating opioids as not clear pain is driving agitation - will still treat davis L leg pain is part of the issue but try to spare opioids with tylenol and ibuprofen as well now that he is a few months out from acetabular fx repair. Also consolidating sedating meds closer to bedtime to try to achieve better sleep at night. Otherwise try to get him out and about and stimulated/interacting during the day, and if there is something he normally likes to do at nursing home, then try to avail him of that here. Caregiver indicates that this is normal behavior for him. Plan: Acute urinary retention: Up to 1 L today. Has been incontinent of urine before. Etiology uncertain.I wonder if medication effect. Does not appear infected. -q6 hr PVR -q 3 hr voiding attempt -straight cath for >500 mL -will decrease trazodone dose back to 50 mg nightly Left acetabular fracture: Improved -s/p operative repair on 09/04/2017 and orthopedics advanced to WBAT BLE (11/21) -continue scheduled and prn tylenol -continue scheduled ibuprofen Toxic metabolic encephalopathy on baseline cognitive impairment with past CVA/hemorrhage from pituitary surgery: -encephalopathy seems like it has resolved - his ongoing waxing/waning periods of restlessness and yelling/moaning loudly alternating with periods of relative calm are apparently normal per caregiver -continue quetiapine, trazodone, and melatonin at 8pm (his usual bed time per caregiver) -has additional seroquel available prn agitation -Otherwise try to get him active during the day -Check bladder scan prn -Bowel regimen -net bed for safety as needed - RN trying out of net bed today Panhypopituitarism including DI: Stable -Due to 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 -Appreciate endocrinology recommendations. -Decreased hydrocortisone from 20/10/10 to 20/10 per endocrine on 11/16 -Increased synthroid to 200 mcg 11/23. -Seizures managed with home zonisamide 200mg PO QHS per neurology. -treat DI as below DI, Hyponatremia and hypernatremia: sodium stable - Outpt ddAVP dosing and fluid restriction are 0.05 mg tid and 3.2 L, respectively -appreciate Endocrine assistance Fractured left lower molar: -Likely occurred with seizure and no evidence of acute infection. Extraction to occur in non-urgentmanner pending availability, but per dentistry, not likely anytime soon. IV access: None Tubes/Drains: None DVT PPX: None as moving alot Anticipated Disposition: Discharge limited by behaviors (rehabilitation) and inability to climb stairs (nursing home) - continue to try to make progress w/ measures described above and ongoing PT, respectively Team Pager( Coverage 27/01): #[phone] PCP: NAKIA Cifuentes [phone] Attestation: IPI Certification I certify that I am a D-H credentialed attending provider with admitting privileges and that the patient meets or has met medical necessity to require an inpatient IPI level of care meeting a minimumof two midnights or is on the [facility] inpatient only procedure list (status C) due to: Acetabular fx and hypernatremia PCP: NAKIA Cifuentes [phone] REN SANCHEZ III, MD 12/09/2017 * Danay Monge MD - 12/08/2017 9:15 AM EDT Hospital Medicine Attending Daily Progress Note Admit Date: 09/02/2017 Hospital Day 97 days Active Hospital Problems Diagnosis ??? S/P ORIF left acetabulum fracture 09/04/2017 Dr. Lance ??? Postoperative anemia due to acute blood loss ??? Diabetes insipidus ??? Adrenal insufficiency ??? Panhypopituitarism ??? Seizure disorder ??? Hypothyroidism Resolved Hospital Problems Diagnosis Date Resolved No resolved problems to display. PMH Active Non-Hospital Problems Diagnosis ??? Insomnia ??? Blind ??? CVA (cerebral vascular accident) ??? Urinary incontinence Inpatient Medications: Scheduled ??? desmopressin 0.05 mg Oral TID ??? traZODone 100 mg Oral Nightly ??? acetaminophen 650 mg Oral TID ??? ibuprofen 400 mg Oral TID ??? melatonin 9 mg Oral Nightly ??? QUEtiapine 250 mg Oral Nightly ??? levothyroxine 200 mcg Oral QAM ??? calcium carbonate 500 mg Oral Nightly ??? hydrocortisone 10 mg Oral Daily at Noon ??? senna-docusate 2 tablet Oral BID ??? sodium chloride 0.9 % 5 mL Intravenous Q12H ??? testosterone 5 g Transdermal Nightly ??? methyl salicylate-menthol Topical (Top) BID ??? cholecalciferol (Vitamin D3) 1,000 Units Oral Daily ??? hydrocortisone 20 mg Oral QAM ??? pantoprazole 40 mg Oral QAM AC ??? zonisamide 200 mg Oral Nightly Continuous infusions: PRN: HYDROmorphone, acetaminophen, QUEtiapine, polyethylene glycol (MIRALAX)oral powder, simethicone, sodium chloride 0.9 %, lidocaine, bisacodyl, senna- docusate, naphazoline-pheniramine Interval History: cooperative, no issues overnight Physical Exam Vitals Range last 24 hrs Temperature Temp: [36.5 ??C (97.7 ??F)-37 ??C (98.6 ??F)] Heart Rate Heart Rate: [104-116] Blood Pressure BP: (102-132)/(57-98) Respiratory Rate Resp: [24-28] SpO2 SpO2: [96 %-99 %] Intake/Output Summary (Last 24 hours) at 12/08/17 0915 Last data filed at 12/08/17 0836 Gross per 24 hour Intake 1225 ml Output 400 ml Net 825 ml No data found. There is no height or weight on file to calculate BMI. Physical Exam General - NAD HEENT - anicteric, left eye fixed CV - RRR Lungs - CTAB Abd - Soft, nondistended Ext - no c/c/e Studies reviewed in eDH. Remarkable for the following: LABS: Last 3 wbc, hgb, hct plt Recent Labs 12/06/17 0748 11/14/17 0508 10/22/17 0502 WBC 4.6 5.7 6.6 HGB 11.7* 11.5* 12.9* HCT 38.1* 37.4* 40.5 PLATELET 291 274 339 Last 3 Lytes Recent Labs 12/06/17 0748 12/05/17 1317 12/04/17 1516 12/03/17 1315 12/01/17 2143 NA 143 143 142 < > 142 < > 148* K 3.7 4.0 4.6 < > 3.9 < > 3.6 CL 104 105 106 < > 105 < > 111* CO2 24 21* 22 < > 20* < > 25 BUN 23* -- -- -- 24* -- 23* CREATININE 0.64* -- -- -- 0.84 -- 0.92 < > = values in this interval not displayed. Last 3 LFTs Recent Labs 09/04/17 0358 AST 23 ALT 31 ALKPHOS 75 BILITOT 0.5 BILIDIR 0.1 FSBG Trend No results for input(s): POCGLU in the last 72 hours. MICRO: No results for input(s): URINECULTURE in the last 720 hours. No results for input(s): GRAMSTAIN, BFCX, LOWERRESPCX, TISSUECX in the last 720 hours. No results for input(s): BLOODCX in the last 720 hours. ECG: Recent Labs 12/05/17 1729 DIAGLINE Sinus tachycardia Nonspecific ST/T wave abnormality Abnormal ECG When compared with ECG of 04-SEP-2017 22:30, Rate slower Confirmed by MD Oh, Sukhi Walker ([id number]) on 12/06/2017 10:46:47 AM QTCCALC 452 VASCULAR: No results for input(s): VBTEXTRPT in the last 720 hours. 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 11/21 advanced to WBAT BLE with assistive device at all times. Agitated behavior issues may be environmental with baseline agitation and lack of normal routine - difficult to assess if he is in pain given can be consistently agitated but he does seem to indicatesome L leg pain. De-escalating opioids as not clear pain is driving agitation - will still treat davis L leg pain is part of the issue but try to spare opioids with tylenol and ibuprofen as well now that he is a few months out from acetabular fx repair. Also consolidating sedating meds closer to bedtime to try to achieve better sleep at night. Otherwise try to get him out and about and stimulated/interacting during the day, and if there is something he normally likes to do at nursing home, then try to avail him of that here. Caregiver indicates that this is normal behavior for him. Plan: Left acetabular fracture: Improved -s/p operative repair on 09/04/2017 and orthopedics advanced to WBAT BLE (11/21) -continue scheduled and prn tylenol -continue scheduled ibuprofen Toxic metabolic encephalopathy on baseline cognitive impairment with past CVA/hemorrhage from pituitary surgery: -encephalopathy seems like it has resolved - his ongoing waxing/waning periods of restlessness and yelling/moaning loudly alternating with periods of relative calm are apparently normal per caregiver -continue quetiapine, trazodone, and melatonin at 8pm (his usual bed time per caregiver) -has additional seroquel available prn agitation -Otherwise try to get him active during the day -Check bladder scan prn -Bowel regimen -net bed for safety as needed - RN trying out of net bed today Panhypopituitarism including DI: Stable -Due to 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 -Appreciate endocrinology recommendations. -Decreased hydrocortisone from 20/10/10 to 20/10 per endocrine on 11/16 -Increased synthroid to 200 mcg 11/23. -Seizures managed with home zonisamide 200mg PO QHS per neurology. -treat DI as below DI, Hyponatremia and hypernatremia: sodium stable - Outpt ddAVP dosing and fluid restriction are 0.05 mg tid and 3.2 L, respectively -appreciate Endocrine assistance Fractured left lower molar: -Likely occurred with seizure and no evidence of acute infection. Extraction to occur in non-urgentmanner pending availability, but per dentistry, not likely anytime soon. IV access: None Tubes/Drains: None DVT PPX: None as moving alot Anticipated Disposition: Discharge limited by behaviors (rehabilitation) and inability to climb stairs (nursing home) - continue to try to make progress w/ measures described above and ongoing PT, respectively Team Pager( Coverage 27/01): #[phone] PCP: NAKIA Cifuentes [phone] Attestation: IPI Certification I certify that I am a D-H credentialed attending provider with admitting privileges and that the patient meets or has met medical necessity to require an inpatient IPI level of care meeting a minimumof two midnights or is on the [facility] inpatient only procedure list (status C) due to: Acetabular fx and hypernatremia PCP: NAKIA Cifuentes [phone] DANAY MONGE MD 12/08/2017 * Danay Monge MD - 12/07/2017 3:05 PM EDT Hospital Medicine Attending Daily Progress Note Admit Date: 09/02/2017 Hospital Day 96 days Active Hospital Problems Diagnosis ??? S/P ORIF left acetabulum fracture 09/04/2017 Dr. Lance ??? Postoperative anemia due to acute blood loss ??? Diabetes insipidus ??? Adrenal insufficiency ??? Panhypopituitarism ??? Seizure disorder ??? Hypothyroidism Resolved Hospital Problems Diagnosis Date Resolved No resolved problems to display. PMH Active Non-Hospital Problems Diagnosis ??? Insomnia ??? Blind ??? CVA (cerebral vascular accident) ??? Urinary incontinence Inpatient Medications: Scheduled ??? desmopressin 0.05 mg Oral TID ??? traZODone 100 mg Oral Nightly ??? acetaminophen 650 mg Oral TID ??? ibuprofen 400 mg Oral TID ??? melatonin 9 mg Oral Nightly ??? QUEtiapine 250 mg Oral Nightly ??? levothyroxine 200 mcg Oral QAM ??? calcium carbonate 500 mg Oral Nightly ??? hydrocortisone 10 mg Oral Daily at Noon ??? senna-docusate 2 tablet Oral BID ??? sodium chloride 0.9 % 5 mL Intravenous Q12H ??? testosterone 5 g Transdermal Nightly ??? methyl salicylate-menthol Topical (Top) BID ??? cholecalciferol (Vitamin D3) 1,000 Units Oral Daily ??? hydrocortisone 20 mg Oral QAM ??? pantoprazole 40 mg Oral QAM AC ??? zonisamide 200 mg Oral Nightly Continuous infusions: PRN: HYDROmorphone, acetaminophen, QUEtiapine, polyethylene glycol (MIRALAX)oral powder, simethicone, sodium chloride 0.9 %, lidocaine, bisacodyl, senna- docusate, naphazoline-pheniramine Interval History: cooperative, no issues overnight Physical Exam Vitals Range last 24 hrs Temperature Temp: [36.2 ??C (97.1 ??F)-36.7 ??C (98.1 ??F)] Heart Rate Heart Rate: [101-125] Blood Pressure BP: (124-158)/(80-98) Respiratory Rate Resp: [22-24] SpO2 SpO2: [96 %-99 %] Intake/Output Summary (Last 24 hours) at 12/07/17 1506 Last data filed at 12/07/17 1425 Gross per 24 hour Intake 1465 ml Output 0 ml Net 1465 ml No data found. There is no height or weight on file to calculate BMI. Physical Exam General - NAD HEENT - anicteric, left eye fixed CV - RRR Lungs - CTAB Abd - Soft, nondistended Ext - no c/c/e Studies reviewed in eDH. Remarkable for the following: LABS: Last 3 wbc, hgb, hct plt Recent Labs 12/06/17 0748 11/14/17 0508 10/22/17 0502 WBC 4.6 5.7 6.6 HGB 11.7* 11.5* 12.9* HCT 38.1* 37.4* 40.5 PLATELET 291 274 339 Last 3 Lytes Recent Labs 12/06/17 0748 12/05/17 1317 12/04/17 1516 12/03/17 1315 12/01/17 2143 NA 143 143 142 < > 142 < > 148* K 3.7 4.0 4.6 < > 3.9 < > 3.6 CL 104 105 106 < > 105 < > 111* CO2 24 21* 22 < > 20* < > 25 BUN 23* -- -- -- 24* -- 23* CREATININE 0.64* -- -- -- 0.84 -- 0.92 < > = values in this interval not displayed. Last 3 LFTs Recent Labs 09/04/17 0358 AST 23 ALT 31 ALKPHOS 75 BILITOT 0.5 BILIDIR 0.1 FSBG Trend No results for input(s): POCGLU in the last 72 hours. MICRO: No results for input(s): URINECULTURE in the last 720 hours. No results for input(s): GRAMSTAIN, BFCX, LOWERRESPCX, TISSUECX in the last 720 hours. No results for input(s): BLOODCX in the last 720 hours. ECG: Recent Labs 12/05/17 1729 DIAGLINE Sinus tachycardia Nonspecific ST/T wave abnormality Abnormal ECG When compared with ECG of 04-SEP-2017 22:30, Rate slower Confirmed by MD Oh, Sukhi Walker ([id number]) on 12/06/2017 10:46:47 AM QTCCALC 452 VASCULAR: No results for input(s): VBTEXTRPT in the last 720 hours. 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 11/21 advanced to WBAT BLE with assistive device at all times. Agitated behavior issues may be environmental with baseline agitation and lack of normal routine - difficult to assess if he is in pain given can be consistently agitated but he does seem to indicatesome L leg pain. De-escalating opioids as not clear pain is driving agitation - will still treat davis L leg pain is part of the issue but try to spare opioids with tylenol and ibuprofen as well now that he is a few months out from acetabular fx repair. Also consolidating sedating meds closer to bedtime to try to achieve better sleep at night. Otherwise try to get him out and about and stimulated/interacting during the day, and if there is something he normally likes to do at nursing home, then try to avail him of that here. Caregiver indicates that this is normal behavior for him. Plan: Left acetabular fracture: Improved -s/p operative repair on 09/04/2017 and orthopedics advanced to WBAT BLE (11/21) -continue scheduled and prn tylenol -continue scheduled ibuprofen Toxic metabolic encephalopathy on baseline cognitive impairment with past CVA/hemorrhage from pituitary surgery: -encephalopathy seems like it has resolved - his ongoing waxing/waning periods of restlessness and yelling/moaning loudly alternating with periods of relative calm are apparently normal per caregiver -continue quetiapine, trazodone, and melatonin at 8pm (his usual bed time per caregiver) -has additional seroquel available prn agitation -Otherwise try to get him active during the day -Check bladder scan prn -Bowel regimen -net bed for safety as needed - RN trying out of net bed today Panhypopituitarism including DI: Stable -Due to 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 -Appreciate endocrinology recommendations. -Decreased hydrocortisone from 20//10 to 20/10 per endocrine on 11/16 -Increased synthroid to 200 mcg 11/23. -Seizures managed with home zonisamide 200mg PO QHS per neurology. -treat DI as below DI, Hyponatremia and hypernatremia: sodium stable - Outpt ddAVP dosing and fluid restriction are 0.05 mg tid and 3.2 L, respectively -appreciate Endocrine assistance Fractured left lower molar: -Likely occurred with seizure and no evidence of acute infection. Extraction to occur in non-urgentmanner pending availability, but per dentistry, not likely anytime soon. IV access: None Tubes/Drains: None DVT PPX: None as moving alot Anticipated Disposition: Discharge limited by behaviors (rehabilitation) and inability to climb stairs (nursing home) - continue to try to make progress w/ measures described above and ongoing PT, respectively Team Pager(MD Coverage 27/01): #[phone] PCP: NAKIA Cifuentes [phone] Attestation: IPI Certification I certify that I am a D-H credentialed attending provider with admitting privileges and that the patient meets or has met medical necessity to require an inpatient IPI level of care meeting a minimumof two midnights or is on the [facility] inpatient only procedure list (status C) due to: Acetabular fx and hypernatremia PCP: NAKIA Cifuentes [phone] DANAY MONGE MD 12/07/2017 * Danay Monge MD - 12/06/2017 2:30 PM EDT [facility] Medicine Attending Daily Progress Note Admit Date: 09/02/2017 Hospital Day 95 days Active Hospital Problems Diagnosis ??? S/P ORIF left acetabulum fracture 09/04/2017 Dr. Lance ??? Postoperative anemia due to acute blood loss ??? Diabetes insipidus ??? Adrenal insufficiency ??? Panhypopituitarism ??? Seizure disorder ??? Hypothyroidism Resolved Hospital Problems Diagnosis Date Resolved No resolved problems to display. PMH Active Non-Hospital Problems Diagnosis ??? Insomnia ??? Blind ??? CVA (cerebral vascular accident) ??? Urinary incontinence Inpatient Medications: Scheduled ??? desmopressin 0.05 mg Oral TID ??? traZODone 100 mg Oral Nightly ??? acetaminophen 650 mg Oral TID ??? ibuprofen 400 mg Oral TID ??? melatonin 9 mg Oral Nightly ??? QUEtiapine 250 mg Oral Nightly ??? levothyroxine 200 mcg Oral QAM ??? calcium carbonate 500 mg Oral Nightly ??? hydrocortisone 10 mg Oral Daily at Noon ??? senna-docusate 2 tablet Oral BID ??? sodium chloride 0.9 % 5 mL Intravenous Q12H ??? testosterone 5 g Transdermal Nightly ??? methyl salicylate-menthol Topical (Top) BID ??? cholecalciferol (Vitamin D3) 1,000 Units Oral Daily ??? hydrocortisone 20 mg Oral QAM ??? pantoprazole 40 mg Oral QAM AC ??? zonisamide 200 mg Oral Nightly Continuous infusions: PRN: HYDROmorphone, acetaminophen, QUEtiapine, polyethylene glycol (MIRALAX)oral powder, simethicone, sodium chloride 0.9 %, lidocaine, bisacodyl, senna- docusate, naphazoline-pheniramine Interval History: cooperative, no issues overnight Physical Exam Vitals Range last 24 hrs Temperature Temp: [35.8 ??C (96.4 ??F)-36.8 ??C (98.2 ??F)] Heart Rate Heart Rate: [95-123] Blood Pressure BP: (108-153)/(85-93) Respiratory Rate Resp: [16-27] SpO2 SpO2: [97 %] Intake/Output Summary (Last 24 hours) at 12/06/17 1430 Last data filed at 12/06/17 0800 Gross per 24 hour Intake 830 ml Output 200 ml Net 630 ml No data found. There is no height or weight on file to calculate BMI. Physical Exam General - NAD HEENT - NCAT, anicteric, MMM CV - RRR Lungs - CTAB Abd - Soft, nondistended Ext - no c/c/e Studies reviewed in eDH. Remarkable for the following: LABS: Last 3 wbc, hgb, hct plt Recent Labs 12/06/17 0748 11/14/17 0508 10/22/17 0502 WBC 4.6 5.7 6.6 HGB 11.7* 11.5* 12.9* HCT 38.1* 37.4* 40.5 PLATELET 291 274 339 Last 3 Lytes Recent Labs 12/06/17 0748 12/05/17 1317 12/04/17 1516 12/03/17 1315 12/01/17 2143 NA 143 143 142 < > 142 < > 148* K 3.7 4.0 4.6 < > 3.9 < > 3.6 CL 104 105 106 < > 105 < > 111* CO2 24 21* 22 < > 20* < > 25 BUN 23* -- -- -- 24* -- 23* CREATININE 0.64* -- -- -- 0.84 -- 0.92 < > = values in this interval not displayed. Last 3 LFTs Recent Labs 09/04/17 0358 AST 23 ALT 31 ALKPHOS 75 BILITOT 0.5 BILIDIR 0.1 FSBG Trend No results for input(s): POCGLU in the last 72 hours. MICRO: No results for input(s): URINECULTURE in the last 720 hours. No results for input(s): GRAMSTAIN, BFCX, LOWERRESPCX, TISSUECX in the last 720 hours. No results for input(s): BLOODCX in the last 720 hours. ECG: Recent Labs 12/05/17 1729 DIAGLINE Sinus tachycardia Nonspecific ST/T wave abnormality Abnormal ECG When compared with ECG of 04-SEP-2017 22:30, Rate slower Confirmed by MD Oh, Sukhi Walker ([id number]) on 12/06/2017 10:46:47 AM QTCCALC 452 VASCULAR: No results for input(s): VBTEXTRPT in the last 720 hours. 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 11/21 advanced to WBAT BLE with assistive device at all times. Agitated behavior issues may be environmental with baseline agitation and lack of normal routine - difficult to assess if he is in pain given can be consistently agitated but he does seem to indicatesome L leg pain. De-escalating opioids as not clear pain is driving agitation - will still treat davis L leg pain is part of the issue but try to spare opioids with tylenol and ibuprofen as well now that he is a few months out from acetabular fx repair. Also consolidating sedating meds closer to bedtime to try to achieve better sleep at night. Otherwise try to get him out and about and stimulated/interacting during the day, and if there is something he normally likes to do at nursing home, then try to avail him of that here. Caregiver indicates that this is normal behavior for him. Plan: Left acetabular fracture: Improved -s/p operative repair on 09/04/2017 and orthopedics advanced to WBAT BLE (11/21) -continue scheduled and prn tylenol -continue scheduled ibuprofen Toxic metabolic encephalopathy on baseline cognitive impairment with past CVA/hemorrhage from pituitary surgery: -encephalopathy seems like it has resolved - his ongoing waxing/waning periods of restlessness and yelling/moaning loudly alternating with periods of relative calm are apparently normal per caregiver -continue quetiapine, trazodone, and melatonin at 8pm (his usual bed time per caregiver) -has additional seroquel available prn agitation -Otherwise try to get him active during the day -Check bladder scan prn -Bowel regimen -net bed for safety as needed - RN trying out of net bed today 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 -Appreciate endocrinology recommendations. -Decreased hydrocortisone from 20/10/10 to 20/10 per endocrine on 11/16 -Increased synthroid to 200 mcg 11/23. -Seizures managed with home zonisamide 200mg PO QHS per neurology. -treat DI as below DI, Hyponatremia and hypernatremia: sodium stable - Outpt ddAVP dosing and fluid restriction are 0.05 mg tid and 3.2 L, respectively -appreciate Endocrine assistance Fractured left lower molar: -Likely occurred with seizure and no evidence of acute infection. Extraction to occur in non-urgentmanner pending availability, but per dentistry, not likely anytime soon. IV access: None Tubes/Drains: None DVT PPX: None as moving alot Anticipated Disposition: Discharge limited by behaviors (rehabilitation) and inability to climb stairs (nursing home) - continue to try to make progress w/ measures described above and ongoing PT, respectively Team Pager(MD Coverage 27/01): #[phone] PCP: NAKIA Cifunetes [phone] Attestation: IPI Certification I certify that I am a D-H credentialed attending provider with admitting privileges and that the patient meets or has met medical necessity to require an inpatient IPI level of care meeting a minimumof two midnights or is on the [facility] inpatient only procedure list (status C) due to: Acetabular fx and hypernatremia PCP: NAKIA Cifuentes [phone] DANAY MONGE MD 12/06/2017 * Constantino Courtney MD - 12/05/2017 2:35 PM EDT Hospital Medicine Attending Daily Progress Note Admit Date: 09/02/2017 Hospital Day 94 days Active Hospital Problems Diagnosis ??? S/P ORIF left acetabulum fracture 09/04/2017 Dr. Lance ??? Postoperative anemia due to acute blood loss ??? Diabetes insipidus ??? Adrenal insufficiency ??? Panhypopituitarism ??? Seizure disorder ??? Hypothyroidism Resolved Hospital Problems Diagnosis Date Resolved No resolved problems to display. PMH Active Non-Hospital Problems Diagnosis ??? Insomnia ??? Blind ??? CVA (cerebral vascular accident) ??? Urinary incontinence Inpatient Medications: Scheduled ??? desmopressin 0.05 mg Oral TID ??? traZODone 100 mg Oral Nightly ??? acetaminophen 650 mg Oral TID ??? ibuprofen 400 mg Oral TID ??? melatonin 9 mg Oral Nightly ??? QUEtiapine 250 mg Oral Nightly ??? levothyroxine 200 mcg Oral QAM ??? calcium carbonate 500 mg Oral Nightly ??? hydrocortisone 10 mg Oral Daily at Noon ??? senna-docusate 2 tablet Oral BID ??? sodium chloride 0.9 % 5 mL Intravenous Q12H ??? testosterone 5 g Transdermal Nightly ??? methyl salicylate-menthol Topical (Top) BID ??? cholecalciferol (Vitamin D3) 1,000 Units Oral Daily ??? hydrocortisone 20 mg Oral QAM ??? pantoprazole 40 mg Oral QAM AC ??? zonisamide 200 mg Oral Nightly Continuous infusions: PRN: HYDROmorphone, acetaminophen, QUEtiapine, polyethylene glycol (MIRALAX)oral powder, simethicone, sodium chloride 0.9 %, lidocaine, bisacodyl, senna- docusate, naphazoline-pheniramine Interval History / ROS: In a better mood today and cooperative. No acute events. One of his caretakers is present and eagerto get him out in a wheelchair. Physical Exam Vitals Range last 24 hrs Temperature Temp: [36.6 ??C (97.9 ??F)-36.7 ??C (98.1 ??F)] Heart Rate Heart Rate: [109-124] Blood Pressure BP: (131-143)/(81-91) Respiratory Rate Resp: [18-21] SpO2 SpO2: [95 %-98 %] Intake/Output Summary (Last 24 hours) at 12/05/17 1436 Last data filed at 12/05/17 1300 Gross per 24 hour Intake 1440 ml Output 0 ml Net 1440 ml No data found. There is no height or weight on file to calculate BMI. General - NAD HEENT - NCAT, anicteric, MMM CV - RRR Lungs - CTAB Abd - Soft, nondistended Ext - no c/c/e Studies reviewed in eDH. Remarkable for the following: LABS: Last 3 Lytes Recent Labs 12/05/17 1317 12/04/17 1516 12/04/17 0627 12/03/17 1315 12/01/17 2143 12/01/17 1127 NA 143 142 141 142 < > 148* 151* K 4.0 4.6 3.4* 3.9 < > 3.6 4.0 CL 105 106 102 105 < > 111* 114* CO2 21* 22 25 20* < > 25 24 BUN -- -- -- 24* -- 23* 21* CREATININE -- -- -- 0.84 -- 0.92 1.03 < > = values in this interval not displayed. Last Ca, Mg, Phos Recent Labs 12/03/17 1315 CALCIUM 9.2 IMAGING: None new Assessment: 27 y/o man with panhypopituitarism due to prior pituitary tumor resection complicated by hemorrhageand CVA with cognitive impairment and seizures, admitted with left acetabular fracture s/p operative repair on 09/04, had been NWB which limited ability to return to his prior residence. 11/21 advanced to WBAT BLE with assistive device at all times. Agitated behavior issues may be environmental with baseline agitation and lack of normal routine - difficult to assess if he is in pain given can be consistently agitated but he does seem to indicatesome L leg pain. De-escalating opioids as not clear pain is driving agitation - will still treat davis L leg pain is part of the issue but try to spare opioids with tylenol and ibuprofen as well now that he is a few months out from acetabular fx repair. Also consolidating sedating meds closer to bedtime to try to achieve better sleep at night. Otherwise try to get him out and about and stimulated/interacting during the day, and if there is something he normally likes to do at nursing home, then try to avail him of that here. Caregiver indicates that this is normal behavior for him. Plan: Left acetabular fracture: Improved -s/p operative repair on 09/04/2017 and orthopedics advanced to WBAT BLE (11/21) -continue scheduled and prn tylenol -continue scheduled ibuprofen Toxic metabolic encephalopathy on baseline cognitive impairment with past CVA/hemorrhage from pituitary surgery: -encephalopathy seems like it has resolved - his ongoing waxing/waning periods of restlessness and yelling/moaning loudly alternating with periods of relative calm are apparently normal per caregiver -continue quetiapine, trazodone, and melatonin at 8pm (his usual bed time per caregiver) -has additional seroquel available prn agitation -Otherwise try to get him active during the day -Check bladder scan prn -Bowel regimen -net bed for safety as needed - RN trying out of net bed today Panhypopituitarism including DI: Stable -Due to 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 -Appreciate endocrinology recommendations. -Decreased hydrocortisone from 20/10/10 to 20/10 per endocrine on 11/16 -Increased synthroid to 200 mcg 11/23. -Seizures managed with home zonisamide 200mg PO QHS per neurology. -treat DI as below DI, Hyponatremia and hypernatremia: sodium stable - Outpt ddAVP dosing and fluid restriction are 0.05 mg tid and 3.2 L, respectively -appreciate Endocrine assistance Fractured left lower molar: -Likely occurred with seizure and no evidence of acute infection. Extraction to occur in non-urgentmanner pending availability, but per dentistry, not likely anytime soon. ?? IV access: None Tubes/Drains: None DVT PPX: None as moving alot Anticipated Disposition: Discharge limited by behaviors (rehabilitation) and inability to climb stairs (nursing home) - continue to try to make progress w/ measures described above and ongoing PT, respectively Team Pager( Coverage 27/01): #[phone] PCP: NAKIA Cifeuntes [phone] Attestation: IPI Certification I certify that I am a D-H credentialed attending provider with admitting privileges and that the patient meets or has met medical necessity to require an inpatient IPI level of care meeting a minimumof two midnights or is on the [facility] inpatient only procedure list (status C) due to: Acetabular fx and hypernatremia CONSTANTINO COURTNEY MD 12/05/2017 * Fran Gilliam MD - 12/04/2017 2:15 PM EDT Hospital Medicine Attending Daily Progress Note Admit Date: 09/02/2017 Hospital Day 94 days Active Hospital Problems Diagnosis ??? S/P ORIF left acetabulum fracture 09/04/2017 Dr. Lance ??? Postoperative anemia due to acute blood loss ??? Diabetes insipidus ??? Adrenal insufficiency ??? Panhypopituitarism ??? Seizure disorder ??? Hypothyroidism Resolved Hospital Problems Diagnosis Date Resolved No resolved problems to display. PMH Active Non-Hospital Problems Diagnosis ??? Insomnia ??? Blind ??? CVA (cerebral vascular accident) ??? Urinary incontinence Inpatient Medications: Scheduled ??? desmopressin 0.05 mg Oral TID ??? traZODone 100 mg Oral Nightly ??? acetaminophen 650 mg Oral TID ??? ibuprofen 400 mg Oral TID ??? melatonin 9 mg Oral Nightly ??? QUEtiapine 250 mg Oral Nightly ??? levothyroxine 200 mcg Oral QAM ??? calcium carbonate 500 mg Oral Nightly ??? hydrocortisone 10 mg Oral Daily at Noon ??? senna-docusate 2 tablet Oral BID ??? sodium chloride 0.9 % 5 mL Intravenous Q12H ??? testosterone 5 g Transdermal Nightly ??? methyl salicylate-menthol Topical (Top) BID ??? cholecalciferol (Vitamin D3) 1,000 Units Oral Daily ??? hydrocortisone 20 mg Oral QAM ??? pantoprazole 40 mg Oral QAM AC ??? zonisamide 200 mg Oral Nightly Continuous infusions: PRN: HYDROmorphone, acetaminophen, QUEtiapine, polyethylene glycol (MIRALAX)oral powder, simethicone, sodium chloride 0.9 %, lidocaine, bisacodyl, senna- docusate, naphazoline-pheniramine Interval History / ROS: -no events overnight -continued waxing / waning agitation alternating with calm / sedation -sleeping soundly today Physical Exam Vitals Range last 24 hrs Temperature Temp: [36.5 ??C (97.7 ??F)-36.7 ??C (98.1 ??F)] Heart Rate Heart Rate: [86-124] Blood Pressure BP: (141-149)/(72-98) Respiratory Rate Resp: [18] SpO2 SpO2: [95 %] Intake/Output Summary (Last 24 hours) at 12/05/17 0221 Last data filed at 12/04/17 1800 Gross per 24 hour Intake 1080 ml Output 600 ml Net 480 ml No data found. There is no height or weight on file to calculate BMI. General - lying in bed, sleeping HEENT - NCAT, anicteric, MMM CV - RRR Lungs - CTAB Abd - Soft, nondistended Ext - no c/c/e Studies reviewed in eDH. Remarkable for the following: LABS: Last 3 Lytes Recent Labs 12/04/17 1516 12/04/17 0627 12/03/17 1315 12/01/17 2143 12/01/17 1127 NA 142 141 142 < > 148* 151* K 4.6 3.4* 3.9 < > 3.6 4.0 CL 106 102 105 < > 111* 114* CO2 22 25 20* < > 25 24 BUN -- -- 24* -- 23* 21* CREATININE -- -- 0.84 -- 0.92 1.03 < > = values in this interval not displayed. Last Ca, Mg, Phos Recent Labs 12/03/17 1315 CALCIUM 9.2 IMAGING: None new Assessment: 27 y/o man with panhypopituitarism due to prior pituitary tumor resection complicated by hemorrhageand CVA with cognitive impairment and seizures, admitted with left acetabular fracture s/p operative repair on 09/04, had been NWB which limited ability to return to his prior residence.. 11/21 advancedto WBAT BLE with assistive device at all times. Agitated behavior issues may be environmental with baseline agitation and lack of normal routine - difficult to assess if he is in pain given can be consistently agitated but he does seem to indicatesome L leg pain. De-escalating opioids as not clear pain is driving agitation - will still treat davis L leg pain is part of the issue but try to spare opioids with tylenol and ibuprofen as well now that he is a few months out from acetabular fx repair. Also consolidating sedating meds closer to bedtime to try to achieve better sleep at night. Otherwise try to get him out and about and stimulated/interacting during the day, and if there is something he normally likes to do at nursing home, then try to avail him of that here.... Did do much better, at least for a few days, in setting of these changes and weaning off scheduled opioids but still waxing/waning - caregiver indicates that this is normal behavior for him. Plan: Left acetabular fracture: Improved -s/p operative repair on 09/04/2017 and orthopedics advanced to WBAT BLE (11/21) -weaned off scheduled opioids at this point - will make dilaudid available nightly prn but otherwise try to use tylenol and ibuprofen -continue scheduled and prn tylenol -continue scheduled ibuprofen -d/c'd muscle relaxant due to possible contribution to AMS - seems to be doing OK without but monitor Toxic metabolic encephalopathy on baseline cognitive impairment with past CVA/hemorrhage from pituitary surgery: -encephalopathy seems like it has resolved - his ongoing waxing/waning periods of restlessness and yelling/moaning loudly alternating with periods of relative calm are apparently normal per caregiver -continue quetiapine, trazodone, and melatonin at 8pm (his usual bed time per caregiver) -has additional seroquel available prn agitation -Otherwise try to get him active during the day, and if there is something he normally likes to do at nursing home, then try to avail him of that -Check bladder scan prn -Bowel regimen -net bed for safety Panhypopituitarism including DI: Stable -Due to 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 -Appreciate endocrinology recommendations. -Decreased hydrocortisone from 20/10/10 to 20/10 per endocrine on 11/16 -Increased synthroid to 200 mcg 11/23. -Seizures managed with home zonisamide 200mg PO QHS per neurology. -treat DI as below DI, Hyponatremia and hypernatremia: - Outpt ddAVP dosing and fluid restriction are 0.05 mg tid and 3.2 L, respectively - Na up to 150's recently in setting of a lower fluid restriction -- now back to normal range after1 day of increased ddAVP dosing to 0.1 from 0.05 mg and liberalized fluid restriction from 2.8 L back to his usual 3.2 -- now decreased ddAVP back to 0.05 mg tid - continue to follow Na closely for the time being until stable -appreciate Endocrine assistance Fractured left lower molar: -Likely occurred with seizure and no evidence of acute infection. Extraction to occur in non-urgentmanner pending availability, but per dentistry, not likely anytime soon. ?? IV access: None Tubes/Drains: None DVT PPX: None as moving alot Anticipated Disposition: Discharge limited by behaviors (rehabilitation) and inability to climb stairs (nursing home) - continue to try to make progress w/ measures described above and ongoing PT, respectively Team Pager( Coverage 27/01): #[phone] PCP: NAKIA Cifuentes [phone] Attestation: IPI Certification I certify that I am a D-H credentialed attending provider with admitting privileges and that the patient meets or has met medical necessity to require an inpatient IPI level of care meeting a minimumof two midnights or is on the [facility] inpatient only procedure list (status C) due to: Acetabular fx and hypernatremia FRAN GILLIAM MD 12/05/2017 * Fran Gilliam MD - 12/03/2017 5:56 PM EDT Hospital Medicine Attending Daily Progress Note Admit Date: 09/02/2017 Hospital Day 92 days Active Hospital Problems Diagnosis ??? S/P ORIF left acetabulum fracture 09/04/2017 Dr. Lance ??? Postoperative anemia due to acute blood loss ??? Diabetes insipidus ??? Adrenal insufficiency ??? Panhypopituitarism ??? Seizure disorder ??? Hypothyroidism Resolved Hospital Problems Diagnosis Date Resolved No resolved problems to display. PMH Active Non-Hospital Problems Diagnosis ??? Insomnia ??? Blind ??? CVA (cerebral vascular accident) ??? Urinary incontinence Inpatient Medications: Scheduled ??? [START ON 12/04/2017] desmopressin 0.05 mg Oral TID ??? traZODone 100 mg Oral Nightly ??? acetaminophen 650 mg Oral TID ??? ibuprofen 400 mg Oral TID ??? melatonin 9 mg Oral Nightly ??? QUEtiapine 250 mg Oral Nightly ??? levothyroxine 200 mcg Oral QAM ??? calcium carbonate 500 mg Oral Nightly ??? hydrocortisone 10 mg Oral Daily at Noon ??? senna-docusate 2 tablet Oral BID ??? sodium chloride 0.9 % 5 mL Intravenous Q12H ??? testosterone 5 g Transdermal Nightly ??? methyl salicylate-menthol Topical (Top) BID ??? cholecalciferol (Vitamin D3) 1,000 Units Oral Daily ??? hydrocortisone 20 mg Oral QAM ??? pantoprazole 40 mg Oral QAM AC ??? zonisamide 200 mg Oral Nightly Continuous infusions: PRN: HYDROmorphone, acetaminophen, QUEtiapine, polyethylene glycol (MIRALAX)oral powder, simethicone, sodium chloride 0.9 %, lidocaine, bisacodyl, senna- docusate, naphazoline-pheniramine Interval History / ROS: -after being very calm the past few days/nights with much less yelling out, he then was awake all night last night yelling/moaning loudly -finally slept this morning - now awake and mostly yelling/moaning loudly again -caregiver who is here today says this is actually normal for him to cycle between periods of calm and periods of being yelling/moaning -patient able to be calm and quiet when spoken to -as usual he says he's doing awesomely -denies any pain Physical Exam Vitals Range last 24 hrs Temperature Temp: [35.9 ??C (96.6 ??F)-37.3 ??C (99.1 ??F)] Heart Rate Heart Rate: [95-102] Blood Pressure BP: (131-156)/(73-94) Respiratory Rate Resp: [18-24] SpO2 SpO2: [96 %-99 %] Intake/Output Summary (Last 24 hours) at 12/03/17 1756 Last data filed at 12/03/17 1700 Gross per 24 hour Intake 2596 ml Output 0 ml Net 2596 ml No data found. There is no height or weight on file to calculate BMI. General - lying in bed, restless, moaning loudly but able to calm down and answer simple questions when asked HEENT - NCAT, anicteric, MMM CV - RRR Lungs - CTAB Abd - Soft, NT/ND Ext - no c/c/e Studies reviewed in eDH. Remarkable for the following: LABS: Last 3 Lytes Recent Labs 12/03/17 1315 12/03/17 0548 12/02/17 2203 12/01/17 2143 12/01/17 1127 NA 142 144 146* < > 148* 151* K 3.9 3.5 3.9 < > 3.6 4.0 CL 105 106 110* < > 111* 114* CO2 20* 22 22 < > 25 24 BUN 24* -- -- -- 23* 21* CREATININE 0.84 -- -- -- 0.92 1.03 < > = values in this interval not displayed. Last Ca, Mg, Phos Recent Labs 12/03/17 1315 CALCIUM 9.2 IMAGING: None new Assessment: 27 y/o man with panhypopituitarism due to prior pituitary tumor resection complicated by hemorrhageand CVA with cognitive impairment and seizures, admitted with left acetabular fracture s/p operative repair on 09/04, had been NWB which limited ability to return to his prior residence.. 11/21 advancedto WBAT BLE with assistive device at all times. Agitated behavior issues may be environmental with baseline agitation and lack of normal routine - difficult to assess if he is in pain given can be consistently agitated but he does seem to indicatesome L leg pain. De-escalating opioids as not clear pain is driving agitation - will still treat davis L leg pain is part of the issue but try to spare opioids with tylenol and ibuprofen as well now that he is a few months out from acetabular fx repair. Also consolidating sedating meds closer to bedtime to try to achieve better sleep at night. Otherwise try to get him out and about and stimulated/interacting during the day, and if there is something he normally likes to do at nursing home, then try to avail him of that here.... Did do much better, at least for a few days, in setting of these changes and weaning off scheduled opioids but still waxing/waning and currently back to being restlessand yelling/moaning loudly; although, caregiver indicates that this is normal behavior for him. Plan: Left acetabular fracture: Improved -s/p operative repair on 09/04/2017 and orthopedics advanced to WBAT BLE (11/21) -weaned off scheduled opioids at this point - will make dilaudid available nightly prn but otherwise try to use tylenol and ibuprofen -continue scheduled and prn tylenol -continue scheduled ibuprofen -d/c'd muscle relaxant due to possible contribution to AMS - seems to be doing OK without but monitor Toxic metabolic encephalopathy on baseline cognitive impairment with past CVA/hemorrhage from pituitary surgery: -encephalopathy seems like it has resolved - his ongoing waxing/waning periods of restlessness and yelling/moaning loudly alternating with periods of relative calm are apparently normal per caregiver -continue quetiapine, trazodone, and melatonin at 8pm (his usual bed time per caregiver) - try increasing trazodone from 50 mg to 100 mg tonight given poor sleep at night -has additional seroquel available prn agitation -Otherwise try to get him out and about and active during the day, and if there is something he normally likes to do at nursing home, then try to avail him of that -Check bladder scan prn -Bowel regimen -net bed for safety Panhypopituitarism including DI: Stable -Due to 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 -Appreciate endocrinology recommendations. -Decreased hydrocortisone from 25/04/ to 20/10 per endocrine on 11/16 -Increased synthroid to 200 mcg 11/23. -Seizures managed with home zonisamide 200mg PO QHS per neurology. -treat DI as below DI, Hyponatremia and hypernatremia: - Outpt ddAVP dosing and fluid restriction are 0.05 mg tid and 3.2 L, respectively - Na up to 150's past few days in setting of a lower fluid restriction -- now back to normal range after 1 day of increased ddAVP dosing to 0.1 from 0.05 mg and liberalized fluid restriction from 2.8L back to his usual 3.2 -- now decreasing ddAVP back to 0.05 mg tid - continue to follow Na closelyfor the time being until stable -appreciate Endocrine assistance Fractured left lower molar: -Likely occurred with seizure and no evidence of acute infection. Extraction to occur in non-urgentmanner pending availability, but per dentistry, not likely anytime soon. ?? IV access: None Tubes/Drains: None DVT PPX: None as moving alot Anticipated Disposition: Discharge limited by behaviors (rehabilitation) and inability to climb stairs (nursing home) - continue to try to make progress w/ measures described above and ongoing PT, respectively Team Pager( Coverage 27/01): #[phone] PCP: NAKIA Cifuentes [phone] Attestation: IPI Certification I certify that I am a D-H credentialed attending provider with admitting privileges and that the patient meets or has met medical necessity to require an inpatient IPI level of care meeting a minimumof two midnights or is on the [facility] inpatient only procedure list (status C) due to: Acetabular fx and hypernatremia FRAN GILLIAM MD 12/03/2017 * Yadi Mccauley MD - 12/03/2017 2:25 PM EDT ENDOCRINOLOGY FOLLOW UP INPATIENT NOTE [facility] Name: Miguel Angel Mason Date of Consultation: 12/03/2017 History of Present Illness: Miguel Angel Mason is a 27 yo male??with 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 Endocrinology following this patient for panhypopituitarism and diabetes insipidus. ?? Interim events: Patients sodium down into normal range. Patient very agitated today, suspect left hip pain. Per bedside rn medicare, fluid restriction of 3.2L is being maintained. Urination is unchanged but unable to be truly tracked. Past Surgical History: Procedure Laterality Date ??? PRO OPEN CROSSCUTTER ROLLED GLASS FIX ACETABULAR FX Left 09/04/2017 @OPEN TREATMENT, ACETABULAR FX (WRVU 25.41) performed by Amy Lance MD at [facility] MAIN OR Allergies Allergen Reactions ??? Lopid [Gemfibrozil] Current Medications: Scheduled Meds: ??? desmopressin 0.1 mg Oral 3 times per day ??? acetaminophen 650 mg Oral TID ??? ibuprofen 400 mg Oral TID ??? melatonin 9 mg Oral Nightly ??? QUEtiapine 250 mg Oral Nightly ??? traZODone 50 mg Oral Nightly ??? levothyroxine 200 mcg Oral QAM ??? calcium carbonate 500 mg Oral Nightly ??? hydrocortisone 10 mg Oral Daily at Noon ??? senna-docusate 2 tablet Oral BID ??? sodium chloride 0.9 % 5 mL Intravenous Q12H ??? testosterone 5 g Transdermal Nightly ??? methyl salicylate-menthol Topical (Top) BID ??? cholecalciferol (Vitamin D3) 1,000 Units Oral Daily ??? hydrocortisone 20 mg Oral QAM ??? pantoprazole 40 mg Oral QAM AC ??? 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 Endocrinology following this patient for panhypopituitarism and diabetes insipidus. ?? Plan: 1) Diabetes Insipidus --- Would recommend changing back to DDAVP 0.05 mg TID With 3.2L fluid restriction to avoid hyponatremia/over correction --- [place] sodium level 138-145. --- Continue to try with accurate measurements of input and output 2) Central Hypothyroidism --- Continue Levothyroxine 200 mcg daily, increased from 175 mcg on 11/23/2017 for free T4 of 0.81 ?? 3) Adrenal insufficiency --- Continue current dosing of Hydrocortisone 20 mg am and 10 mg pm ?? 4) Hypogonadism --- Continue Androgel testosterone replacement therapy Thank you for allowing us participate in the care of this patient. Patient was discussed with the attending provider, Dr. Mccauley. Lindsey Walsh, DO Endocrinology, Diabetes and Metabolism Fellow 12/03/2017 2:26 PM I have seen the patient and reviewed Dr. Lindsey Walsh's above history and I agree with the details as written. The assessment and plan were formulated in discussion with me and I agree with them as documented. Yadi Mccauley MD, PhD, FACP, FACE * Fran Gilliam MD - 12/02/2017 6:24 PM EDT Hospital Medicine Attending Daily Progress Note Admit Date: 09/02/2017 Hospital Day 91 days Active Hospital Problems Diagnosis ??? S/P ORIF left acetabulum fracture 09/04/2017 Dr. Lance ??? Postoperative anemia due to acute blood loss ??? Diabetes insipidus ??? Adrenal insufficiency ??? Panhypopituitarism ??? Seizure disorder ??? Hypothyroidism Resolved Hospital Problems Diagnosis Date Resolved No resolved problems to display. PMH Active Non-Hospital Problems Diagnosis ??? Insomnia ??? Blind ??? CVA (cerebral vascular accident) ??? Urinary incontinence Inpatient Medications: Scheduled ??? desmopressin 0.1 mg Oral 3 times per day ??? acetaminophen 650 mg Oral TID ??? ibuprofen 400 mg Oral TID ??? melatonin 9 mg Oral Nightly ??? QUEtiapine 250 mg Oral Nightly ??? traZODone 50 mg Oral Nightly ??? levothyroxine 200 mcg Oral QAM ??? calcium carbonate 500 mg Oral Nightly ??? hydrocortisone 10 mg Oral Daily at Noon ??? senna-docusate 2 tablet Oral BID ??? sodium chloride 0.9 % 5 mL Intravenous Q12H ??? testosterone 5 g Transdermal Nightly ??? methyl salicylate-menthol Topical (Top) BID ??? cholecalciferol (Vitamin D3) 1,000 Units Oral Daily ??? hydrocortisone 20 mg Oral QAM ??? pantoprazole 40 mg Oral QAM AC ??? zonisamide 200 mg Oral Nightly Continuous infusions: PRN: acetaminophen, HYDROmorphone, QUEtiapine, polyethylene glycol (MIRALAX)oral powder, simethicone, sodium chloride 0.9 %, lidocaine, bisacodyl, senna- docusate, naphazoline-pheniramine Interval History / ROS: -calm the past few days/nights with much less yelling out -looks good today -says he's doing awesomely -denies any pain -Na increased in spite of no change in ddAVP dosing or fluid restriction recently; although, has not been reaching his 2.8 L fluid limit on some days recently Physical Exam Vitals Range last 24 hrs Temperature Temp: [36.7 ??C (98 ??F)-36.9 ??C (98.4 ??F)] Heart Rate Heart Rate: [113] Blood Pressure BP: (129-138)/(76-78) Respiratory Rate Resp: [20-22] SpO2 SpO2: [95 %-97 %] Intake/Output Summary (Last 24 hours) at 12/02/17 1824 Last data filed at 12/02/17 1725 Gross per 24 hour Intake 1588 ml Output 450 ml Net 1138 ml No data found. There is no height or weight on file to calculate BMI. General - sitting in bed, calm, looks relatively bright today, awake and alert today HEENT - at/nc CV - RRR Lungs - CTAB Abd - Soft, NT/ND Ext - no c/c/e Studies reviewed in eDH. Remarkable for the following: LABS: Last 3 Lytes Recent Labs 12/02/17 1140 12/02/17 0752 12/01/17 2143 12/01/17 1127 11/26/17 0549 NA 150* 153* 148* 151* 143 K -- 3.7 3.6 4.0 3.7 CL -- 114* 111* 114* 105 CO2 -- 22 25 24 26 BUN -- -- 23* 21* 13 CREATININE -- -- 0.92 1.03 0.80 Last Ca, Mg, Phos Recent Labs 12/01/17 2143 CALCIUM 8.6 IMAGING: None new Assessment: 27 y/o man with panhypopituitarism due to prior pituitary tumor resection complicated by hemorrhageand CVA with cognitive impairment and seizures, admitted with left acetabular fracture s/p operative repair on 09/04, had been NWB which limited ability to return his prior residence.. 11/21 advanced toWBAT BLE with assistive device at all times. Agitated behavior issues may be environmental with baseline agitation and lack of normal routine - difficult to assess if he is in pain given can be consistently agitated but he does seem to indicatesome L leg pain. De-escalating opioids as not clear pain is driving agitation - will still treat davis L leg pain is part of the issue but try to spare opioids with tylenol and ibuprofen as well now that he is a few months out from acetabular fx repair. Also consolidating sedating meds closer to bedtime to try to achieve better sleep at night. Otherwise try to get him out and about and stimulated/interacting during the day, and if there is something he normally likes to do at nursing home, then try to avail him of that here.... Now doing much better in setting of these changes and weaning off scheduled opioids. Plan: Left acetabular fracture: Improved -s/p operative repair on 09/04/2017 and orthopedics advanced to WBAT BLE (11/21) -continue weaning opioids - off scheduled at this point, will stop prn dilaudid now given that he does not appear to have any pain -continue scheduled and prn tylenol -continue scheduled ibuprofen -also d/c'd muscle relaxant due to possible contribution to AMS - seems to be doing fine without it Metabolic encephalopathy on baseline cognitive impairment with CVA/hemorrhage from pituitary surgery: -doing much better now with discontinuation of opioids -continue quetiapine, trazodone, and melatonin but giving at 8pm (which is actually his usual bed time per caregiver) instead of 6pm -Otherwise try to get him out and about and stimulated/interacting during the day, and if there is something he normally likes to do at nursing home, then try to avail him of that -Check bladder scan prn -Bowel regimen -net bed for safety Panhypopituitarism including DI: Stable -Due to 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 -Appreciate endocrinology recommendations. -Decreased hydrocortisone from 20/10/10 to 20/10 per endocrine on 11/16 -Increased synthroid to 200 mcg 11/23. -Seizures managed with home zonisamide 200mg PO QHS per neurology. -treat DI as below DI, Hyponatremia and hypernatremia: - Fluid restriction has been anywhere 2.5 - 4L restriction during this hospitalization. At home seems 3.2 L. Currently on 2.8 L. - Na up to 150-153 range at the moment - likely due to decreased po fluid intake on some days recently - increase fluid restriction up to 3.2 L per Endocrine - Continue DDAVP 3 times daily - increased from 0.05 mg to 0.1 mg for today but per Endocrine rec'swill decrease back to 0.05 but increase fluid restriction as above - repeat lytes tonight and again in AM - Follow Na more frequently for now - can space back out to q3 days when stable again Fractured left lower molar: -Likely occurred with seizure and no evidence of acute infection. Extraction to occur in non-urgentmanner pending availability, but per dentistry, not likely anytime soon. ?? IV access: None Tubes/Drains: None DVT PPX: None as moving alot Anticipated Disposition: Discharge limited by behaviors (rehabilitation) and inability to climb stairs (nursing home) - continue to try to make progress w/ measures described above and ongoing PT, respectively Team Pager( Coverage 27/01): #[phone] PCP: NAKIA Cifuentes [phone] Attestation: IPI Certification I certify that I am a D-H credentialed attending provider with admitting privileges and that the patient meets or has met medical necessity to require an inpatient IPI level of care meeting a minimumof two midnights or is on the CMS inpatient only procedure list (status C) due to: Acetabular fx and hypernatremia FRAN GILLIAM MD 12/02/2017 * Yadi Mccauley MD - 12/02/2017 1:59 PM EDT Images from the original note were not included. 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 Endocrinology following this patient for panhypopituitarism and diabetes insipidus. Interim events: Since seen last by endocrinology on 11/28/2017 patient has suffered hypernatremia. There has been no missed doses of DDAVP and no change in fluid restriction. Patients caregiver at bedside says he is doing well today. Patient seems to be in usual state of health compared to previous encounters and documentation. Past Surgical History: Procedure Laterality Date ??? PRO OPEN CROSSCUTTER ROLLED GLASS FIX ACETABULAR FX Left 09/04/2017 @OPEN TREATMENT, ACETABULAR FX (WRVU 25.41) performed by Amy Lance MD at [facility] MAIN OR Allergies Allergen Reactions ??? Lopid [Gemfibrozil] Current Medications: Scheduled Meds: ??? desmopressin 0.1 mg Oral 3 times per day ??? acetaminophen 650 mg Oral TID ??? ibuprofen 400 mg Oral TID ??? melatonin 9 mg Oral Nightly ??? QUEtiapine 250 mg Oral Nightly ??? traZODone 50 mg Oral Nightly ??? levothyroxine 200 mcg Oral QAM ??? calcium carbonate 500 mg Oral Nightly ??? hydrocortisone 10 mg Oral Daily at Noon ??? senna-docusate 2 tablet Oral BID ??? sodium chloride 0.9 % 5 mL Intravenous Q12H ??? testosterone 5 g Transdermal Nightly ??? methyl salicylate-menthol Topical (Top) BID ??? cholecalciferol (Vitamin D3) 1,000 Units Oral Daily ??? hydrocortisone 20 mg Oral QAM ??? pantoprazole 40 mg Oral QAM AC ??? zonisamide 200 mg Oral Nightly Continuous Infusions: PRN Meds:.acetaminophen, HYDROmorphone, QUEtiapine, polyethylene glycol (MIRALAX)oral powder, simethicone, sodium chloride 0.9 %, lidocaine, bisacodyl, senna-docusate, naphazoline-pheniramine Physical Exam: BP 138/78 (BP Location (NBP): Right arm, Patient Position: Lying) Pulse (!) 113 Temp 36.7 ??C (98 ??F) (Oral) Resp 20 Ht 177.8 cm (5' 10) Wt 86.6 kg (191 lb) Comment: weight taken postoperatively using bed scale from unit SpO2 97% Lying in bed Seemingly comfortable Patient calling out during our visit Labs: Assessment: Miguel Angel Mason is a 27 yo male with 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 Endocrinology following this patient for panhypopituitarism and diabetes insipidus. Plan: 1) Diabetes Insipidus --- Would recommend DDAVP 0.05 mg TID be continued --- Would liberalize fluid restriction given hypernatremia --- Continue to try with accurate measurements of input and output --- Re-educate bedside caregivers about importance of fluid intake 2) Central Hypothyroidism --- Continue Levothyroxine 200 mcg daily, increased from 175 mcg on 11/23/2017 for free T4 of 0.81 3) Adrenal insufficiency --- Continue current dosing of Hydrocortisone 20 mg am and 10 mg pm 4) Hypogonadism --- Continue Androgel testosterone replacement therapy Thank you for allowing us participate in the care of this patient. Patient was discussed with the attending provider, Dr. Mccauley. Lindsey Walsh, DO Endocrinology, Diabetes and Metabolism Fellow 12/02/2017 1:59 PM I have seen the patient and reviewed Dr. Lindsey Walsh's above history and I agree with the details as written. The assessment and plan were formulated in discussion with me and I agree with them as documented. Yadi Mccauley MD, PhD, FACP, FACE * Fran Gilliam MD - 12/01/2017 12:45 PM EDT Hospital Medicine Attending Daily Progress Note Admit Date: 09/02/2017 Hospital Day 91 days Active Hospital Problems Diagnosis ??? S/P ORIF left acetabulum fracture 09/04/2017 Dr. Lance ??? Postoperative anemia due to acute blood loss ??? Diabetes insipidus ??? Adrenal insufficiency ??? Panhypopituitarism ??? Seizure disorder ??? Hypothyroidism Resolved Hospital Problems Diagnosis Date Resolved No resolved problems to display. PMH Active Non-Hospital Problems Diagnosis ??? Insomnia ??? Blind ??? CVA (cerebral vascular accident) ??? Urinary incontinence Inpatient Medications: Scheduled ??? acetaminophen 650 mg Oral TID ??? ibuprofen 400 mg Oral TID ??? melatonin 9 mg Oral Nightly ??? QUEtiapine 250 mg Oral Nightly ??? traZODone 50 mg Oral Nightly ??? levothyroxine 200 mcg Oral QAM ??? calcium carbonate 500 mg Oral Nightly ??? hydrocortisone 10 mg Oral Daily at Noon ??? senna-docusate 2 tablet Oral BID ??? sodium chloride 0.9 % 5 mL Intravenous Q12H ??? testosterone 5 g Transdermal Nightly ??? desmopressin 0.05 mg Oral 3 times per day ??? methyl salicylate-menthol Topical (Top) BID ??? cholecalciferol (Vitamin D3) 1,000 Units Oral Daily ??? hydrocortisone 20 mg Oral QAM ??? pantoprazole 40 mg Oral QAM AC ??? zonisamide 200 mg Oral Nightly Continuous infusions: PRN: acetaminophen, HYDROmorphone, QUEtiapine, polyethylene glycol (MIRALAX)oral powder, simethicone, sodium chloride 0.9 %, lidocaine, bisacodyl, senna- docusate, naphazoline-pheniramine Interval History / ROS: -sleeping on/off during day and night -tired, groggy today again -not yelling out today, calm Physical Exam Vitals Range last 24 hrs Temperature Temp: [37 ??C (98.6 ??F)-37.3 ??C (99.1 ??F)] Heart Rate Heart Rate: [117] Blood Pressure BP: (137-157)/(73-98) Respiratory Rate Resp: [20] SpO2 SpO2: [97 %-98 %] Intake/Output Summary (Last 24 hours) at 12/02/17 0118 Last data filed at 12/01/171999 Gross per 24 hour Intake 1748 ml Output 475 ml Net 1273 ml No data found. There is no height or weight on file to calculate BMI. General - sitting in bed, calm, appears tired again today HEENT - at/nc CV - RRR Lungs - CTAB Abd - Soft, NT/ND Ext - no c/c/e Studies reviewed in eDH. Remarkable for the following: LABS: Last 3 Lytes Recent Labs 12/01/17 2143 12/01/17 1127 11/26/17 0549 NA 148* 151* 143 K 3.6 4.0 3.7 CL 111* 114* 105 CO2 25 24 26 BUN 23* 21* 13 CREATININE 0.92 1.03 0.80 Last Ca, Mg, Phos Recent Labs 12/01/17 214 CALCIUM 8.6 IMAGING: None new Assessment: 27 y/o man with panhypopituitarism due to prior pituitary tumor resection complicated by hemorrhageand CVA with cognitive impairment and seizures, admitted with left acetabular fracture s/p operative repair on 09/04, had been NWB which limited ability to return his prior residence.. 11/21 advanced toWBAT BLE with assistive device at all times. Agitated behavior issues may be environmental with baseline agitation and lack of normal routine - difficult to assess if he is in pain given can be consistently agitated but he does seem to indicatesome L leg pain. De-escalating opioids as not clear pain is driving agitation - will still treat davis L leg pain is part of the issue but try to spare opioids with tylenol and ibuprofen as well now that he is a few months out from acetabular fx repair. Also consolidating sedating meds closer to bedtime to try to achieve better sleep at night. Otherwise try to get him out and about and stimulated/interacting during the day, and if there is something he normally likes to do at nursing home, then try to avail him of that here. Plan: Left acetabular fracture: Improved -s/p operative repair on 09/04/2017 and orthopedics advanced to WBAT BLE (11/21) -continue weaning opioids - stopped scheduled dilaudid except for bedtime dose at this point, continue prn dilaudid -continue scheduled tylenol and ibuprofen TID -d/c muscle relaxant, which muddies the mauro in terms of mental status but monitor to see if muscle spasm does seem to be an issue Metabolic encephalopathy on baseline cognitive impairment with CVA/hemorrhage from pituitary surgery: Agitated behavior issues may be environmental with baseline agitation and lack of normal routine - difficult to assess if he is in pain given can be consistently agitated but he does seem to indicatesome L leg pain. -De-escalating opioids as not clear pain is driving agitation - will still treat as if L leg pain is part of the issue but try to spare opioids with tylenol and plus ibuprofen as well now that he is a few months out from acetabular fx repair. -Will also consolidate sedating meds closer to bedtime to try to achieve better sleep at night - continue quetiapine, trazodone, and melatonin but give at 8pm (which is actually his usual bed time per caregiver) instead of 6pm -Otherwise try to get him out and about and stimulated/interacting during the day, and if there is something he normally likes to do at nursing home, then try to avail him of that -Check bladder scan prn -Bowel regimen -net bed for safety Panhypopituitarism including DI: Stable -Due to 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 -Appreciate endocrinology recommendations. -Decreased hydrocortisone from 20/10/10 to 20/10 per endocrine on 11/16 -Increased synthroid to 200 mcg 11/23. -Seizures managed with home zonisamide 200mg PO QHS per neurology. DI, Hyponatremia and hypernatremia: - Has been anywhere 2.5 - 4L restriction during this hospitalization. At home seems 3.2L - Continue DDAVP 3 times daily - Follow Na every 3 days or more frequently prn, adjust ddAVP as indicated Fractured left lower molar: -Likely occurred with seizure and no evidence of acute infection. Extraction to occur in non-urgentmanner pending availability, but per dentistry, not likely anytime soon. ?? IV access: None Tubes/Drains: None DVT PPX: None as moving alot Anticipated Disposition: Discharge limited by behaviors (rehabilitation) and inability to climb stairs (nursing home) - continue to try to make progress w/ measures described above and ongoing PT, respectively Team Pager( Coverage 27/01): #[phone] PCP: NAKIA Cifuentes [phone] Attestation: IPI Certification I certify that I am a D-H credentialed attending provider with admitting privileges and that the patient meets or has met medical necessity to require an inpatient IPI level of care meeting a minimumof two midnights or is on the [facility] inpatient only procedure list (status C) due to: Acetabular fx and hypernatremia FRAN GILLIAM MD 12/02/2017 * Fran Gilliam MD - 11/30/2017 4:11 PM EDT Hospital Medicine Attending Daily Progress Note Admit Date: 09/02/2017 Hospital Day 89 days Active Hospital Problems Diagnosis ??? S/P ORIF left acetabulum fracture 09/04/2017 Dr. Lance ??? Postoperative anemia due to acute blood loss ??? Diabetes insipidus ??? Adrenal insufficiency ??? Panhypopituitarism ??? Seizure disorder ??? Hypothyroidism Resolved Hospital Problems Diagnosis Date Resolved No resolved problems to display. PMH Active Non-Hospital Problems Diagnosis ??? Insomnia ??? Blind ??? CVA (cerebral vascular accident) ??? Urinary incontinence Inpatient Medications: Scheduled ??? acetaminophen 650 mg Oral TID ??? ibuprofen 400 mg Oral TID ??? melatonin 9 mg Oral Nightly ??? QUEtiapine 250 mg Oral Nightly ??? traZODone 50 mg Oral Nightly ??? HYDROmorphone 2 mg Oral Nightly ??? levothyroxine 200 mcg Oral QAM ??? calcium carbonate 500 mg Oral Nightly ??? hydrocortisone 10 mg Oral Daily at Noon ??? senna-docusate 2 tablet Oral BID ??? sodium chloride 0.9 % 5 mL Intravenous Q12H ??? testosterone 5 g Transdermal Nightly ??? desmopressin 0.05 mg Oral 3 times per day ??? methyl salicylate-menthol Topical (Top) BID ??? cholecalciferol (Vitamin D3) 1,000 Units Oral Daily ??? hydrocortisone 20 mg Oral QAM ??? pantoprazole 40 mg Oral QAM AC ??? zonisamide 200 mg Oral Nightly Continuous infusions: PRN: acetaminophen, HYDROmorphone, QUEtiapine, polyethylene glycol (MIRALAX)oral powder, simethicone, sodium chloride 0.9 %, lidocaine, bisacodyl, senna- docusate, naphazoline-pheniramine Interval History / ROS: -did not sleep overnight in spite of consolidating sedating meds at bedtime last night without really any decrease in those sedating meds -tired, groggy today after no sleep overnight -not yelling out today, calm Physical Exam Vitals Range last 24 hrs Temperature Temp: [36.5 ??C (97.7 ??F)-36.6 ??C (97.9 ??F)] Heart Rate Heart Rate: [101] Blood Pressure BP: (108-151)/(70-82) Respiratory Rate Resp: [18-20] SpO2 SpO2: [95 %-97 %] Intake/Output Summary (Last 24 hours) at 11/30/17 1611 Last data filed at 11/30/17 1200 Gross per 24 hour Intake 2275 ml Output 0 ml Net 2275 ml No data found. There is no height or weight on file to calculate BMI. General - sitting in bed, calm, appears very tired today HEENT - at/nc CV - RRR Lungs - CTAB Abd - Soft, NT/ND Ext - no c/c/e Studies reviewed in eDH. Remarkable for the following: LABS: Last 3 Lytes Recent Labs 11/26/17 0549 11/23/17 0953 11/22/17 1105 NA 143 142 140 K 3.7 3.9 4.0 CL 105 106 101 CO2 26 21* 25 BUN 13 11 14 CREATININE 0.80 1.06 0.84 Last Ca, Mg, Phos Recent Labs 11/26/17 0549 CALCIUM 9.2 IMAGING: None new Assessment: 27 y/o man with panhypopituitarism due to prior pituitary tumor resection complicated by hemorrhageand CVA with cognitive impairment and seizures, admitted with left acetabular fracture s/p operative repair on 09/04, had been NWB which limited ability to return his prior residence.. 11/21 advanced toWBAT BLE with assistive device at all times. Agitated behavior issues may be environmental with baseline agitation and lack of normal routine - difficult to assess if he is in pain given can be consistently agitated but he does seem to indicatesome L leg pain. De-escalating opioids as not clear pain is driving agitation - will still treat davis L leg pain is part of the issue but try to spare opioids with tylenol and ibuprofen as well now that he is a few months out from acetabular fx repair. Also consolidating sedating meds closer to bedtime to try to achieve better sleep at night. Otherwise try to get him out and about and stimulated/interacting during the day, and if there is something he normally likes to do at nursing home, then try to avail him of that here. Plan: Left acetabular fracture: Improved -s/p operative repair on 09/04/2017 and orthopedics advanced to WBAT BLE (11/21) -continue weaning opioids - stopped scheduled dilaudid except for bedtime dose at this point, continue prn dilaudid -continue scheduled tylenol and ibuprofen TID -d/c muscle relaxant, which muddies the mauro in terms of mental status but monitor to see if muscle spasm does seem to be an issue Metabolic encephalopathy on baseline cognitive impairment with CVA/hemorrhage from pituitary surgery: Agitated behavior issues may be environmental with baseline agitation and lack of normal routine - difficult to assess if he is in pain given can be consistently agitated but he does seem to indicatesome L leg pain. -De-escalating opioids as not clear pain is driving agitation - will still treat as if L leg pain is part of the issue but try to spare opioids with tylenol and plus ibuprofen as well now that he is a few months out from acetabular fx repair. -Will also consolidate sedating meds closer to bedtime to try to achieve better sleep at night - continue quetiapine, trazodone, and melatonin but give at bedtime instead of 6pm -- gave at 10 pm lastnight and that seemed to be too late - will split the difference and give at 8pm (which is actuallyhis usual bed time per caregiver) -Otherwise try to get him out and about and stimulated/interacting during the day, and if there is something he normally likes to do at nursing home, then try to avail him of that -Check bladder scan prn -Bowel regimen -net bed for safety Panhypopituitarism including DI: Stable -Due to 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 -Appreciate endocrinology recommendations. -Decreased hydrocortisone from 25/04/10 to 20/10 per endocrine on 11/16 -Increased synthroid to 200 mcg 11/23. -Seizures managed with home zonesamide 200mg PO QHS per neurology. Hyponatremia and hypernatremia with DI: Stable - Has been anywhere 2.5 - 4L restriction during this hospitalization. At home seems 3.2L - Continue DDAVP 3 times daily - Follow Na every 3 days Fractured left lower molar: -Likely occurred with seizure and no evidence of acute infection. Extraction to occur in non-urgentmanner pending availability, but per dentistry, not likely anytime soon. ?? IV access: None Tubes/Drains: None DVT PPX: None as moving alot Anticipated Disposition: Discharge limited by behaviors (rehabilitation) and inability to climb stairs (nursing home) - continue to try to make progress w/ measures described above and ongoing PT, respectively Team Pager( Coverage 27/01): #[phone] PCP: NAKIA Cifuentes [phone] Attestation: IPI Certification I certify that I am a D-H credentialed attending provider with admitting privileges and that the patient meets or has met medical necessity to require an inpatient IPI level of care meeting a minimumof two midnights or is on the CMS inpatient only procedure list (status C) due to: Acetabular fx and hypernatremia FRAN GILLIAM MD 11/30/2017 * Fran Gilliam MD - 11/29/2017 11:00 AM EDT Hospital Medicine Attending Daily Progress Note Admit Date: 09/02/2017 Hospital Day 88 days Active Hospital Problems Diagnosis ??? S/P ORIF left acetabulum fracture 09/04/2017 Dr. Lance ??? Postoperative anemia due to acute blood loss ??? Diabetes insipidus ??? Adrenal insufficiency ??? Panhypopituitarism ??? Seizure disorder ??? Hypothyroidism Resolved Hospital Problems Diagnosis Date Resolved No resolved problems to display. PMH Active Non-Hospital Problems Diagnosis ??? Insomnia ??? Blind ??? CVA (cerebral vascular accident) ??? Urinary incontinence Inpatient Medications: Scheduled ??? acetaminophen 650 mg Oral Q8H CIRO ??? ibuprofen 400 mg Oral Q8H CIRO ??? melatonin 9 mg Oral Nightly ??? QUEtiapine 250 mg Oral Nightly ??? HYDROmorphone 2 mg Oral Nightly ??? traZODone 100 mg Oral Nightly ??? levothyroxine 200 mcg Oral QAM ??? calcium carbonate 500 mg Oral Nightly ??? hydrocortisone 10 mg Oral Daily at Noon ??? senna-docusate 2 tablet Oral BID ??? sodium chloride 0.9 % 5 mL Intravenous Q12H ??? testosterone 5 g Transdermal Nightly ??? desmopressin 0.05 mg Oral 3 times per day ??? methyl salicylate-menthol Topical (Top) BID ??? cholecalciferol (Vitamin D3) 1,000 Units Oral Daily ??? hydrocortisone 20 mg Oral QAM ??? pantoprazole 40 mg Oral QAM AC ??? zonisamide 200 mg Oral Nightly Continuous infusions: PRN: acetaminophen, HYDROmorphone, QUEtiapine, methocarbamol, polyethylene glycol (MIRALAX)oral powder, simethicone, sodium chloride 0.9 %, lidocaine, bisacodyl, senna-docusate, naphazoline-pheniramine Interval History / ROS: -No new changes -still yelling out time to time -- again, appears more from boredom than pain but he does also endorse L leg pain -otherwise says he is doing awesome -nursing reports that he is sleeps for a few hours in the early part of the night, then wakes up and is up all night (in setting of getting multiple sedating meds in the early evening) Physical Exam Vitals Range last 24 hrs Temperature Temp: [36.4 ??C (97.5 ??F)-36.6 ??C (97.9 ??F)] Heart Rate Heart Rate: [99] Blood Pressure BP: (108-129)/(70-80) Respiratory Rate Resp: [18-20] SpO2 SpO2: [95 %-97 %] Intake/Output Summary (Last 24 hours) at 11/29/17 191 Last data filed at 11/29/17 1829 Gross per 24 hour Intake 2630 ml Output 0 ml Net 2630 ml No data found. There is no height or weight on file to calculate BMI. General - lying in bed, yelling out but than calm and answering questions when spoken to HEENT - at/nc CV - RRR Lungs - CTAB Abd - Soft, NT/ND Ext - no c/c/e Studies reviewed in eDH. Remarkable for the following: LABS: Last 3 Lytes Recent Labs 11/26/17 0549 11/23/17 0953 11/22/17 1105 NA 143 142 140 K 3.7 3.9 4.0 CL 105 106 101 CO2 26 21* 25 BUN 13 11 14 CREATININE 0.80 1.06 0.84 Last Ca, Mg, Phos Recent Labs 11/26/17 0549 CALCIUM 9.2 IMAGING: None new Assessment: 27 y/o man with panhypopituitarism due to prior pituitary tumor resection complicated by hemorrhageand CVA with cognitive impairment and seizures, admitted with left acetabular fracture s/p operative repair on 09/04, had been NWB which limited ability to return his prior residence.. 11/21 advanced toWBAT BLE with assistive device at all times. Agitated behavior issues may be environmental with baseline agitation and lack of normal routine - difficult to assess if he is in pain given can be consistently agitated but he does seem to indicatesome L leg pain. De-escalating opioids as not clear pain is driving agitation - will still treat davis L leg pain is part of the issue but try to spare opioids with tylenol and add ibuprofen as well now that he is a few months out from acetabular fx repair. Will also consolidate sedating meds closer to bedtime to try to achieve better sleep at night. Otherwise try to get him out and about and stim ulated/interacting during the day, and if there is something he normally likes to do at nursing home,then try to avail him of that here. Plan: 1. Left acetabular fracture: Improved -s/p operative repair on 09/04/2017 and orthopedics advanced to WBAT BLE (11/21) -continue weaning opioids - stop scheduled dilaudid except for bedtime dose at this point, continueprn dilaudid -continue scheduled tylenol but increase from 500 to 650 mg q8hr -add scheduled ibuprofen 400 mg q8hr -continue methocarbamol PRN muscle spasm 2. 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 -Appreciate endocrinology recommendations. -Decreased hydrocortisone from 20//10 to 20/10 per endocrine on 11/16 -Increased synthroid to 200 mcg 11/23. -Seizures managed with home zonesamide 200mg PO QHS per neurology. 3. Hyponatremia and hypernatremia with DI: Stable - Has been anywhere 2.5 - 4L restriction during this hospitalization. At home seems 3.2L - Continue DDAVP 3 times daily - Follow Na every 3 days 4. Fractured left lower molar: -Likely occurred with seizure and no evidence of acute infection. Extraction to occur in non-urgentmanner pending availability, but per dentistry, not likely anytime soon. ?? 5. Metabolic encephalopathy on baseline cognitive impairment with CVA/hemorrhage from pituitary surgery: Agitated behavior issues may be environmental with baseline agitation and lack of normal routine - difficult to assess if he is in pain given can be consistently agitated but he does seem to indicatesome L leg pain. -De-escalating opioids as not clear pain is driving agitation - will still treat as if L leg pain is part of the issue but try to spare opioids with tylenol and add ibuprofen as well now that he is afew months out from acetabular fx repair. Will also consolidate sedating meds closer to bedtime to try to achieve better sleep at night - continue quetiapine, trazodone, and melatonin but give at bedtime instead of 6pm -Otherwise try to get him out and about and stimulated/interacting during the day, and if there is something he normally likes to do at nursing home, then try to avail him of that -Check bladder scan prn -Bowel regimen -net bed for safety IV access: None Tubes/Drains: None DVT PPX: None as moving alot Anticipated Disposition: Discharge limited by behaviors (rehabilitation) and inability to climb stairs (nursing home) - continue to try to make progress w/ measures described above and ongoing PT, respectively Team Pager( Coverage 27/01): #[phone] PCP: NAKIA Cifuentes [phone] Attestation: IPI Certification I certify that I am a D-H credentialed attending provider with admitting privileges and that the patient meets or has met medical necessity to require an inpatient IPI level of care meeting a minimumof two midnights or is on the [facility] inpatient only procedure list (status C) due to: Acetabular fx and hypernatremia FRAN GILLIAM MD 11/29/2017 * Tricia Gerber RN - 11/28/2017 3:37 PM EDT Case reviewed in eDH and with interdisciplinary team. Per H&P: 27 yo man with a history of??resection of pituitary tumor, intraoperative hemorrhage and??CVA, cognitive impairment, cortical blindness, partial L sided paralysis, seizure disorder, and panhypopituitarism (with DI, adrenal insufficiency, hypothyroidism, (hypogonadism) here with a left a cetabular fracture that occurred in the setting of a possible seizure. Patient is S/P ORIF left acetabulum fracture on 09/04/17. He lives in nursing home setting on 2nd level and unable to ascend stairs. He was previously showering self and navigating stairs with stand by assist r/t blindness per care givers. He is non communicative however the care givers seem able to understand at least some of pt's attempts of communication. Patient unable to return to home until he can safely navigate stairs again. Have been unsuccessful with rehab placement thus far. Left messages today for: Lc Childress ([facility] [employer]sc[employer] Producer) [phone], Subha Tejeda [phone] (RN of [facility] oversees the nursing home), and patients sister/guardian, Bettina Mason [phone]. To further discuss discharge options. Case management will continue to follow and assist with discharge planning needs. Tricia Gerber, safety analyst Office of Care Management [email or web address] Pager: [phone] * Debbie Keller DT - 11/28/2017 3:33 PM EDT Nutrition Services - Follow-up Note Miguel Angel Mason : 1990 AGE: 27 y.o. Patient Active Problem List Diagnosis Date Noted ??? *Hospital-S/P ORIF left acetabulum fracture 09/04/2017 Dr. Lance 09/02/2017 ??? Hospital-Postoperative anemia due to acute blood loss 09/04/2017 ??? Hospital-Diabetes insipidus 09/03/2017 ??? Hospital-Adrenal insufficiency 09/03/2017 ??? 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 Hospital-Seizure disorder 09/03/2017 ??? Insomnia 09/03/2017 ??? Blind 09/03/2017 ??? CVA (cerebral vascular accident) 09/03/2017 ??? Urinary incontinence 09/03/2017 ??? Hospital-Hypothyroidism 09/03/2017 Reason for Nutrition Intervention: Follow-up Diet Order: Regular Appetite: Well- per nursing Food allergies: NKFA Chewing/Swallowing difficulty: none noted- per nursing Ht Readings from Last 3 Encounters: 09/07/17 177.8 cm (5' 10) Wt Readings from Last 3 Encounters: 09/04/17 86.6 kg (191 lb) There is no height or weight on file to calculate BMI. Vitamins/Minerals: Vitamin D3, Tums noted. Assessment: Patient seen for nutrition follow up. Land Agent able to speak with nursing on pt's nutritional care. Nursing reported a good appetite stating, it's well and without difficulty chewing or swallowing. He is tolerating current diet without nausea or vomiting. Nursing stated pt consumed 100%PO intakes of both breakfast and lunch trays today. Nursing stated pt enjoys fruit & vegetables. Pt receiving fruit cup 2x/day for mid-morning and mid afternoon snack. Will continue to send. Provided tomorrow's menu to nursing and collected choices for dinner tonight. Nursing had no nutritionalconcerns at this time. Please contact Food and Nutrition services with any questions that may arise. Nutrition to follow. Nutrition Plan: Continue current diet. Cut up all foods on meal trays. Dietary sending menu daily. Recommend Daily Multi Vitamins. Added snacks- fresh fruit cups 2x/day. Encourage good po intake. Monitor weight. Support and encouragement provided. Nutrition services to follow thru hospital course unless consulted in the interim. ADAM Kaur * Christopher Hess MD - 11/28/2017 12:25 PM EDT Images from the original note were not included. 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 New events since last time seen: Patient's Na has been within normal limits- last one 143. Currently on 0.05 mg DDAVP TID. For adrenal insufficiency he is on hydrocortisone 20 mg AM and 10 mg PM. Forhypothyroidism patient is on 200 mcg daily since 11/23/2017 (increased from 175 mcg daily because ofa low FT4). No vital signs documented. No past medical history on file. Past Surgical History: Procedure Laterality Date ??? PRO OPEN CROSSCUTTER ROLLED GLASS FIX ACETABULAR FX Left 09/04/2017 @OPEN TREATMENT, ACETABULAR FX (WRVU 25.41) performed by Amy Lance MD at [facility] MAIN OR No family history on file. Current Medications: Scheduled Meds: ??? HYDROmorphone 2 mg Oral Nightly ??? HYDROmorphone 1 mg Oral TID AC ??? acetaminophen 500 mg Oral Q8H ??? levothyroxine 200 mcg Oral QAM ??? calcium carbonate 500 mg Oral Nightly ??? hydrocortisone 10 mg Oral Daily at Noon ??? senna-docusate 2 tablet Oral BID ??? sodium chloride 0.9 % 5 mL Intravenous Q12H ??? melatonin 9 mg Oral Nightly ??? testosterone 5 g Transdermal Nightly ??? desmopressin 0.05 mg Oral 3 times per day ??? methyl salicylate-menthol Topical (Top) BID ??? cholecalciferol (Vitamin D3) 1,000 Units Oral Daily ??? hydrocortisone 20 mg Oral QAM ??? pantoprazole 40 mg Oral QAM AC ??? QUEtiapine 250 mg Oral Nightly ??? traZODone 50 mg Oral Nightly ??? zonisamide 200 mg Oral Nightly Continuous Infusions: PRN Meds:.methocarbamol, HYDROmorphone, acetaminophen, haloperidol, polyethylene glycol (MIRALAX)oral powder, simethicone, sodium chloride 0.9 %, lidocaine, bisacodyl, senna-docusate, naphazoline-pheniramine Allergies Allergen Reactions ??? Lopid [Gemfibrozil] Physical Exam: BP (!) 147/98 (BP Location (NBP): Left leg, Patient Position: Lying) Pulse (!) 101 Temp 36.2 ??C (97.2 ??F) (Axillary) Resp 20 Ht 177.8 cm (5' 10) Wt 86.6 kg (191 lb) Comment: weight takenpostoperatively using bed scale from unit SpO2 97% Patient was not examined today Labs: Ref. Range 11/17/2017 05:11 11/22/2017 11:05 11/28/2017 10:52 T3, Total Latest Ref Range: 75 - 170 ng/dL 80 Free T4 Latest Ref Range: 0.93 - 1.70 ng/dL 0.72 (L) 0.81 (L) 0.98 Ref. 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 We have been following peripherally for panhypopituitarism (hypothyroidism, adrenal insufficiency and DI). FT4 today is within normal range (that after levothyroxine was increased from 175 mcg to 200 mcg 1 week ago). Can continue same dose- 200 mcg daily. For adrenal insufficiency he is stable on maintenance dosing hydrocortisone (20 mg AM and 10 mg PM). For DI patient is on replacement DDAVP TID and sodium has been within normal range. Thank you for allowing us participate in the care of this patient. Patient will be seen and discussed with Dr. Hess. Guerrero Tillman MD Endocrinology, Diabetes and Metabolism Fellow Pager #[phone] 11/28/2017 I reviewed this patient with Dr Nick . I reviewed the santos portions of the history and physical exam, and reviewed pertinent lab data. I was involved in all medical decision making and agree with this plan. * Ren Sanchez III, MD - 11/28/2017 12:17 PM EDT Hospital Medicine Attending Daily Progress Note Admit Date: 09/02/2017 Hospital Day 87 days Active Hospital Problems Diagnosis ??? S/P ORIF left acetabulum fracture 09/04/2017 Dr. Lance ??? Postoperative anemia due to acute blood loss ??? Diabetes insipidus ??? Adrenal insufficiency ??? Panhypopituitarism ??? Seizure disorder ??? Hypothyroidism Resolved Hospital Problems Diagnosis Date Resolved No resolved problems to display. PMH Active Non-Hospital Problems Diagnosis ??? Insomnia ??? Blind ??? CVA (cerebral vascular accident) ??? Urinary incontinence Inpatient Medications: Scheduled ??? HYDROmorphone 2 mg Oral Nightly ??? HYDROmorphone 1 mg Oral TID AC ??? acetaminophen 500 mg Oral Q8H ??? levothyroxine 200 mcg Oral QAM ??? calcium carbonate 500 mg Oral Nightly ??? hydrocortisone 10 mg Oral Daily at Noon ??? senna-docusate 2 tablet Oral BID ??? sodium chloride 0.9 % 5 mL Intravenous Q12H ??? melatonin 9 mg Oral Nightly ??? testosterone 5 g Transdermal Nightly ??? desmopressin 0.05 mg Oral 3 times per day ??? methyl salicylate-menthol Topical (Top) BID ??? cholecalciferol (Vitamin D3) 1,000 Units Oral Daily ??? hydrocortisone 20 mg Oral QAM ??? pantoprazole 40 mg Oral QAM AC ??? QUEtiapine 250 mg Oral Nightly ??? traZODone 50 mg Oral Nightly ??? zonisamide 200 mg Oral Nightly Continuous infusions: PRN: methocarbamol, HYDROmorphone, acetaminophen, haloperidol, polyethylene glycol (MIRALAX)oral powder, simethicone, sodium chloride 0.9 %, lidocaine, bisacodyl, senna-docusate, naphazoline-pheniramine Interval History: -No new changes, still yelling out time to time but appears more from boredom than pain - -Denies pain this AM and appears more relaxed. Doing awesomely Subjective/ROS: ROS limited by mental status. Physical Exam Vitals Range last 24 hrs Temperature Temp: [36.2 ??C (97.2 ??F)] Heart Rate Heart Rate: [101] Blood Pressure BP: (147)/(98) Respiratory Rate Resp: [20] SpO2 SpO2: [97 %] Intake/Output Summary (Last 24 hours) at 11/28/17 1217 Last data filed at 11/28/17 0818 Gross per 24 hour Intake 480 ml Output 0 ml Net 480 ml No data found. There is no height or weight on file to calculate BMI. General - laying in bed, yelling but distractable HEENT - at/nc CV - RRR, no m/r/g Lungs - CTA bilaterally Abd - Soft, ND, +BS, non-tender to palpation Ext - Warm, mild edema left foot compared to right, no pain with movement Studies reviewed in eDH. 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 11/21 advanced to WBAT BLE with assistive device at all times. He was less agitated this AM. Recent agitated behavior issues may be environmental with baseline agitation and lack of normal routine - difficult to assess if he is in pain given can be consistently agitated. Maintain good BM and normonatremia. No fevers to suggest infection. Deescalating pain medsas not clear he is having much pain. Currently in net bed but continue to assess if worsens agitation. Plan: 1. Left acetabular fracture: Improved -s/p operative repair on 09/04/2017 and orthopedics advanced to WBAT BLE (11/21) -Pain seems to be less of an issue - will cont decreasing scheduled dilaudid at this time and follow closely - I think agitation is more related to his baseline mentation and difficulty expressing himself -change methocarbamol to PRN -Discharge limited to nursing home with behaviors (rehabilitation) and inability to climb stairs (nursing home) 2. 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 -Appreciate endocrinology recommendations. -Decreased hydrocortisone from 20//10 to 20/10 per endocrine on 11/16 -Increased synthroid to 200 mcg 11/23. -Seizures managed with home zonesamide 200mg PO QHS per neurology. 3. Hyponatremia and hypernatremia with DI: Stable - Has been anywhere 2.5 - 4L restriction during this hospitalization. At home seems 3.2L - Continue DDAVP 3 times daily - Follow Na every 3 days 4. Fractured left lower molar: -Likely occurred with seizure and no evidence of acute infection. Extraction to occur in non-urgentmanner pending availability, but per dentistry, not likely anytime soon. ?? 5. 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 Continue to reassess. -Check bladder scan prn -Bowel regimen -Trying a net bed for safety - dc if worsening agitation IV access: None Tubes/Drains: None DVT PPX: None as moving alot Anticipated Disposition: Pending improved mobility and weight bearing status Team Pager( Coverage 27/01): [phone] PCP: NAKIA Cifuentes [phone] Attestation: IPI Certification I certify that I am a D-H credentialed attending provider with admitting privileges and that the patient meets or has met medical necessity to require an inpatient IPI level of care meeting a minimumof two midnights or is on the CMS inpatient only procedure list (status C) due to: Acetabular fx and hypernatremia REN SANCHEZ III, MD 11/28/2017 * Ren Walters OTA - 11/28/2017 8:25 AM EDT Attempted to see pt this morning, pt finishing with PT and presenting with increased negative behaviors, at this time. Will attempt again at a more appropriate time. Ren MAYA Pager: [phone] * Celine Power MD - 11/28/2017 6:03 AM EDT Orthopaedic Surgery Progress Note Surgery/Issue: ORIF left acetabulum Attending: Dr. Lance Date of surgery: 09/04/2017 Subjective/Events: - JAMAL over the past few days. - In net bed, sitter in room - Up most of the night - Does not endorse pain in LLE - Working with PT given new WBAT, recommending SNF Objcetive: Temp: [36.2 ??C (97.2 ??F)-37 ??C (98.6 ??F)] Heart Rate: [99-113] Resp: [20-22] BP: (130-148)/(82-98) Intake/Output Summary (Last 24 hours) at 11/28/17 0603 Last data filed at 11/27/17 0800 Gross per 24 hour Intake 480 ml Output 0 ml Net 480 ml Lab Results Component Value Date NA 143 11/26/2017 K 3.7 11/26/2017 CL 105 11/26/2017 CO2 26 11/26/2017 BUN 13 11/26/2017 CREATININE 0.80 11/26/2017 GLUCOSE 84 11/26/2017 GLUCFASTING 112 (H) 11/17/2017 CALCIUM 9.2 11/26/2017 Lab Results Component Value Date WBC 5.7 11/14/2017 HGB 11.5 (L) 11/14/2017 HCT 37.4 (L) 11/14/2017 MCV 81.1 (L) 11/14/2017 PLATELET 274 11/14/2017 Lab Results Component Value Date INR 1.1 09/03/2017 Exam: General: comfortable, resting in bed with sheet covering body; resting comfortably this morning. CV: RR assessed peripherally Resp: no increased work of breathing LLE: Anterior pelvic and left lower abdominal incisions c/d/i, no erythema or edema. Abdomen soft, non tender, no ecchymoses Unable to assess motor/sensory formally but moving all 4 extremities in the bed. SILT distally Palpable DP/PT Imaging: XR Judet 11/18: Good alignment. Hardware in unchanged position. ?? A/P: 27 y.o. male s/p ORIF left acetabular fx on 09/04/17. Progressing well post operatively. Furthercare per medicine, dental, and CM/SW for placement. X-rays reviewed for 10 week follow up and patient is ok to advance to WBAT in bilateral lower extremities, assistive devices at all times. Continue OOB with PT/OT and nursing. Activity: WBAT BLE DVT prophylaxis: lovenox Closure: carisa are removed, incisions show good healing Dressings: may leave open to air now Follow up: to be re-tasked at discharge - please page #[phone] prior to discharge so follow up can be arranged Celine Power MD, PGY-1 Orthopaedic Surgery Pager #: [phone] No future appointments. Associated attestation - Amy Lance MD - 11/28/2017 9:50 AM EDT Patient seen and examined. Agree with resident note. Dispo planning. Mandy Lance MD Department of Orthopaedics 11/28/17 * Ren Sanchez III, MD - 11/27/2017 12:04 PM EDT Hospital Medicine Attending Daily Progress Note Admit Date: 09/02/2017 Hospital Day 86 days Active Hospital Problems Diagnosis ??? S/P ORIF left acetabulum fracture 09/04/2017 Dr. Lance ??? Postoperative anemia due to acute blood loss ??? Diabetes insipidus ??? Adrenal insufficiency ??? Panhypopituitarism ??? Seizure disorder ??? Hypothyroidism Resolved Hospital Problems Diagnosis Date Resolved No resolved problems to display. PMH Active Non-Hospital Problems Diagnosis ??? Insomnia ??? Blind ??? CVA (cerebral vascular accident) ??? Urinary incontinence Inpatient Medications: Scheduled ??? HYDROmorphone 2 mg Oral Nightly ??? HYDROmorphone 1 mg Oral TID AC ??? acetaminophen 500 mg Oral Q8H ??? levothyroxine 200 mcg Oral QAM ??? calcium carbonate 500 mg Oral Nightly ??? hydrocortisone 10 mg Oral Daily at Noon ??? senna-docusate 2 tablet Oral BID ??? lidocaine 1 patch Transdermal Q24H And ??? lidocaine 1 patch Transdermal Q24H ??? sodium chloride 0.9 % 5 mL Intravenous Q12H ??? melatonin 9 mg Oral Nightly ??? testosterone 5 g Transdermal Nightly ??? desmopressin 0.05 mg Oral 3 times per day ??? methyl salicylate-menthol Topical (Top) BID ??? cholecalciferol (Vitamin D3) 1,000 Units Oral Daily ??? hydrocortisone 20 mg Oral QAM ??? pantoprazole 40 mg Oral QAM AC ??? QUEtiapine 250 mg Oral Nightly ??? traZODone 50 mg Oral Nightly ??? zonisamide 200 mg Oral Nightly Continuous infusions: PRN: methocarbamol, HYDROmorphone, acetaminophen, haloperidol, polyethylene glycol (MIRALAX)oral powder, simethicone, sodium chloride 0.9 %, lidocaine, bisacodyl, senna-docusate, naphazoline-pheniramine Interval History: -No new changes, still yelling out time to time but appears more from boredom than pain -Denies pain this AM and appears more relaxed Subjective/ROS: ROS limited by mental status. Physical Exam Vitals Range last 24 hrs Temperature Temp: [36.7 ??C (98.1 ??F)-37.4 ??C (99.3 ??F)] Heart Rate Heart Rate: [99-128] Blood Pressure BP: (130-151)/(75-83) Respiratory Rate Resp: [22-26] SpO2 SpO2: [95 %] Intake/Output Summary (Last 24 hours) at 11/27/17 1204 Last data filed at 11/27/17 0800 Gross per 24 hour Intake 1898 ml Output 0 ml Net 1898 ml No data found. There is no height or weight on file to calculate BMI. General - laying in bed, yelling but distractable HEENT - at/nc CV - RRR, no m/r/g Lungs - CTA bilaterally Abd - Soft, ND, +BS, non-tender to palpation Ext - Warm, mild edema left foot compared to right, no pain with movement Studies reviewed in eDH. 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 11/21 advanced to WBAT BLE with assistive device at all times. He was less agitated this AM. Recent agitated behavior issues may be environmental with baseline agitation and lack of normal routine - difficult to assess if he is in pain given can be consistently agitated. Maintain good BM and normonatremia. No fevers to suggest infection. Deescalating pain medsas not clear he is having much pain. Currently in net bed but continue to assess if worsens agitation. Plan: 1. Left acetabular fracture: Improved -s/p operative repair on 09/04/2017 and orthopedics advanced to WBAT BLE (11/21) -Pain seems to be less of an issue - will cont decreasing scheduled dilaudid at this time and follow closely - I think agitation is more related to his baseline mentation and difficulty expressing himself -change methocarbamol to PRN -Discharge limited to nursing home with behaviors (rehabilitation) and inability to climb stairs (nursing home) 2. 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 -Appreciate endocrinology recommendations. -Decreased hydrocortisone from 20/10/10 to 20/10 per endocrine on 11/16 -Increased synthroid to 200 mcg 11/23. -Seizures managed with home zonesamide 200mg PO QHS per neurology. 3. Hyponatremia and hypernatremia with DI: Stable - Has been anywhere 2.5 - 4L restriction during this hospitalization. At home seems 3.2L - Continue DDAVP 3 times daily - Follow Na every 3 days 4. Fractured left lower molar: -Likely occurred with seizure and no evidence of acute infection. Extraction to occur in non-urgentmanner pending availability, but per dentistry, not likely anytime soon. ?? 5. 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 Continue to reassess. -Check bladder scan prn -Bowel regimen -Trying a net bed for safety - dc if worsening agitation IV access: None Tubes/Drains: None DVT PPX: None as moving alot Anticipated Disposition: Pending improved mobility and weight bearing status Team Pager(MD Coverage 27/01): #[phone] PCP: NAKIA Cifuentes [phone] Attestation: IPI Certification I certify that I am a D-H credentialed attending provider with admitting privileges and that the patient meets or has met medical necessity to require an inpatient IPI level of care meeting a minimumof two midnights or is on the [facility] inpatient only procedure list (status C) due to: Acetabular fx and hypernatremia REN SANCHEZ III, MD 11/27/2017 * Ren Sanchez III, MD - 11/26/2017 11:42 AM EDT [facility] Medicine Attending Daily Progress Note Admit Date: 09/02/2017 Hospital Day 85 days Active Hospital Problems Diagnosis ??? S/P ORIF left acetabulum fracture 09/04/2017 Dr. Lance ??? Postoperative anemia due to acute blood loss ??? Diabetes insipidus ??? Adrenal insufficiency ??? Panhypopituitarism ??? Seizure disorder ??? Hypothyroidism Resolved Hospital Problems Diagnosis Date Resolved No resolved problems to display. PMH Active Non-Hospital Problems Diagnosis ??? Insomnia ??? Blind ??? CVA (cerebral vascular accident) ??? Urinary incontinence Inpatient Medications: Scheduled ??? HYDROmorphone 1 mg Oral TID AC ??? methocarbamol 500 mg Oral TID ??? acetaminophen 500 mg Oral Q8H ??? HYDROmorphone 4 mg Oral Nightly ??? levothyroxine 200 mcg Oral QAM ??? calcium carbonate 500 mg Oral Nightly ??? hydrocortisone 10 mg Oral Daily at Noon ??? senna-docusate 2 tablet Oral BID ??? lidocaine 1 patch Transdermal Q24H And ??? lidocaine 1 patch Transdermal Q24H ??? sodium chloride 0.9 % 5 mL Intravenous Q12H ??? melatonin 9 mg Oral Nightly ??? testosterone 5 g Transdermal Nightly ??? desmopressin 0.05 mg Oral 3 times per day ??? methyl salicylate-menthol Topical (Top) BID ??? cholecalciferol (Vitamin D3) 1,000 Units Oral Daily ??? hydrocortisone 20 mg Oral QAM ??? pantoprazole 40 mg Oral QAM AC ??? QUEtiapine 250 mg Oral Nightly ??? traZODone 50 mg Oral Nightly ??? zonisamide 200 mg Oral Nightly Continuous infusions: PRN: HYDROmorphone, acetaminophen, haloperidol, polyethylene glycol (MIRALAX)oral powder, simethicone, sodium chloride 0.9 %, lidocaine, bisacodyl, senna-docusate, naphazoline-pheniramine Interval History: -Some agitation overnight per usual for him -Denies pain this AM and appears more relaxed Subjective/ROS: ROS limited by mental status. Physical Exam Vitals Range last 24 hrs Temperature Temp: [36.5 ??C (97.7 ??F)] Heart Rate Heart Rate: [102] Blood Pressure BP: (132)/(76) Respiratory Rate Resp: -- SpO2 SpO2: [97 %] Intake/Output Summary (Last 24 hours) at 11/26/17 1142 Last data filed at 11/26/17 1008 Gross per 24 hour Intake 2092 ml Output 0 ml Net 2092 ml No data found. There is no height or weight on file to calculate BMI. General - laying in bed, yelling but distractable HEENT - at/nc CV - RRR, no m/r/g Lungs - CTA bilaterally Abd - Soft, ND, +BS, non-tender to palpation Ext - Warm, mild edema left foot compared to right, no pain with movement Studies reviewed in eDH. 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 11/21 advanced to WBAT BLE with assistive device at all times. He was less agitated this AM. Recent agitated behavior issues may be environmental with baseline agitation and lack of normal routine - difficult to assess if he is in pain given can be consistently agitated. Maintain good BM and normonatremia. No fevers to suggest infection. Deescalating pain medsas not clear he is having much pain. Currently in net bed but continue to assess if worsens agitation. Plan: 1. Left acetabular fracture: Improved -s/p operative repair on 09/04/2017 and orthopedics advanced to WBAT BLE (11/21) -Pain seems to be less of an issue - will cont decreasing scheduled dilaudid at this time and follow closely - I think agitation is more related to his baseline mentation and difficulty expressing himself -d/c methocarbamol -Discharge limited to nursing home with behaviors (rehabilitation) and inability to climb stairs (nursing home) 2. 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 -Appreciate endocrinology recommendations. -Decreased hydrocortisone from 20/10/10 to 20/10 per endocrine on 11/16 -Increased synthroid to 200 mcg 11/23. -Seizures managed with home zonesamide 200mg PO QHS per neurology. 3. Hyponatremia and hypernatremia with DI: Stable - Has been anywhere 2.5 - 4L restriction during this hospitalization. At home seems 3.2L - Continue DDAVP 3 times daily - Follow Na every 3 days 4. Fractured left lower molar: -Likely occurred with seizure and no evidence of acute infection. Extraction to occur in non-urgentmanner pending availability, but per dentistry, not likely anytime soon. ?? 5. 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 Continue to reassess. -Check bladder scan prn -Bowel regimen -Trying a net bed for safety - dc if worsening agitation IV access: None Tubes/Drains: None DVT PPX: None as moving alot Anticipated Disposition: Pending improved mobility and weight bearing status Team Pager( Coverage 27/01): #[phone] PCP: NAKIA Cifuentes [phone] Attestation: IPI Certification I certify that I am a D-H credentialed attending provider with admitting privileges and that the patient meets or has met medical necessity to require an inpatient IPI level of care meeting a minimumof two midnights or is on the [facility] inpatient only procedure list (status C) due to: Acetabular fx and hypernatremia REN SANCHEZ III, MD 11/26/2017 * Ren Sanchez III, MD - 11/25/2017 12:54 PM EDT Hospital Medicine Attending Daily Progress Note Admit Date: 09/02/2017 Hospital Day 84 days Active Hospital Problems Diagnosis ??? S/P ORIF left acetabulum fracture 09/04/2017 Dr. Lance ??? Postoperative anemia due to acute blood loss ??? Diabetes insipidus ??? Adrenal insufficiency ??? Panhypopituitarism ??? Seizure disorder ??? Hypothyroidism Resolved Hospital Problems Diagnosis Date Resolved No resolved problems to display. PMH Active Non-Hospital Problems Diagnosis ??? Insomnia ??? Blind ??? CVA (cerebral vascular accident) ??? Urinary incontinence Inpatient Medications: Scheduled ??? methocarbamol 500 mg Oral TID ??? acetaminophen 500 mg Oral Q8H ??? HYDROmorphone 4 mg Oral Nightly ??? HYDROmorphone 2 mg Oral TID AC ??? levothyroxine 200 mcg Oral QAM ??? calcium carbonate 500 mg Oral Nightly ??? hydrocortisone 10 mg Oral Daily at Noon ??? senna-docusate 2 tablet Oral BID ??? lidocaine 1 patch Transdermal Q24H And ??? lidocaine 1 patch Transdermal Q24H ??? sodium chloride 0.9 % 5 mL Intravenous Q12H ??? melatonin 9 mg Oral Nightly ??? testosterone 5 g Transdermal Nightly ??? desmopressin 0.05 mg Oral 3 times per day ??? methyl salicylate-menthol Topical (Top) BID ??? cholecalciferol (Vitamin D3) 1,000 Units Oral Daily ??? hydrocortisone 20 mg Oral QAM ??? pantoprazole 40 mg Oral QAM AC ??? QUEtiapine 250 mg Oral Nightly ??? traZODone 50 mg Oral Nightly ??? zonisamide 200 mg Oral Nightly Continuous infusions: PRN: acetaminophen, haloperidol, polyethylene glycol (MIRALAX)oral powder, HYDROmorphone, simethicone, sodium chloride 0.9 %, lidocaine, bisacodyl, senna- docusate, naphazoline-pheniramine Interval History: -Some agitation overnight - haldol given -Denies pain this AM - doing awesomely again Subjective/ROS: ROS limited by mental status. Physical Exam Vitals Range last 24 hrs Temperature Temp: [36.3 ??C (97.4 ??F)-37.2 ??C (99 ??F)] Heart Rate Heart Rate: [90-130] Blood Pressure BP: (130-149)/(84-85) Respiratory Rate Resp: [16-20] SpO2 SpO2: [95 %-99 %] Intake/Output Summary (Last 24 hours) at 11/25/17 1254 Last data filed at 11/25/17 1241 Gross per 24 hour Intake 1780 ml Output 350 ml Net 1430 ml No data found. There is no height or weight on file to calculate BMI. General - laying in bed, yelling but distractable HEENT - at/nc CV - RRR, no m/r/g Lungs - CTA bilaterally Abd - Soft, ND, +BS, non-tender to palpation Ext - Warm, mild edema left foot compared to right, no pain with movement Studies reviewed in eDH. 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 11/21 advanced to WBAT BLE with assistive device at all times. He was less agitated this AM. Recent agitated behavior issues may be environmental with baseline agitation and lack of normal routine - difficult to assess if he is in pain given can be consistently agitated. Maintain good BM and normonatremia. No fevers to suggest infection. Deescalating pain medsas not clear he is having much pain. Currently in net bed but continue to assess if worsens agitation. Plan: 1. Left acetabular fracture: Improved -s/p operative repair on 09/04/2017 and orthopedics advanced to WBAT BLE (11/21) -Pain seems to be less of an issue - will start decreasing scheduled dilaudid at this time and follow closely - I think agitation is more related to his baseline mentation and difficulty expressing himself -Continue methocarbamol 500 mg po TID (decreased from 1 gm TID on 11/24) -Discharge limited to nursing home with behaviors (rehabilitation) and inability to climb stairs (nursing home) 2. 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 -Appreciate endocrinology recommendations. -Decreased hydrocortisone from 20/10/10 to 20/10 per endocrine on 11/16 -Increased synthroid to 200 mcg 11/23. -Seizures managed with home zonesamide 200mg PO QHS per neurology. 3. Hyponatremia and hypernatremia with DI: Stable - Has been anywhere 2.5 - 4L restriction during this hospitalization. At home seems 3.2L - Continue DDAVP 3 times daily - Follow Na every 3 days 4. Fractured left lower molar: -Likely occurred with seizure and no evidence of acute infection. Extraction to occur in non-urgentmanner pending availability, but per dentistry, not likely anytime soon. ?? 5. 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 Continue to reassess. -Check bladder scan prn -Bowel regimen -Trying a net bed for safety - dc if worsening agitation IV access: None Tubes/Drains: None DVT PPX: Lovenox Anticipated Disposition: Pending improved mobility and weight bearing status Team Pager( Coverage 27/01): #[phone] PCP: NAKIA Cifuentes [phone] Attestation: IPI Certification I certify that I am a D-H credentialed attending provider with admitting privileges and that the patient meets or has met medical necessity to require an inpatient IPI level of care meeting a minimumof two midnights or is on the [facility] inpatient only procedure list (status C) due to: Acetabular fx and hypernatremia REN SANCHEZ III, MD 11/25/2017 * Shruti Lozoya RN - 11/25/2017 4:17 AM EDT 11/24/17-11/25/17 [id number] Patient is not wearing masimo due to safety reasons and baseline cognitive status. Spot checks withVS have been done and are WNL. Will continue to monitor. * Ren Sanchez III, MD - 11/24/2017 10:54 AM EDT [facility] Medicine Attending Daily Progress Note Admit Date: 09/02/2017 Hospital Day 83 days Active Hospital Problems Diagnosis ??? S/P ORIF left acetabulum fracture 09/04/2017 Dr. Lance ??? Postoperative anemia due to acute blood loss ??? Diabetes insipidus ??? Adrenal insufficiency ??? Panhypopituitarism ??? Seizure disorder ??? Hypothyroidism Resolved Hospital Problems Diagnosis Date Resolved No resolved problems to display. [facility] Active Non-Hospital Problems Diagnosis ??? Insomnia ??? Blind ??? CVA (cerebral vascular accident) ??? Urinary incontinence Inpatient Medications: Scheduled ??? acetaminophen 500 mg Oral Q8H ??? HYDROmorphone 4 mg Oral Nightly ??? HYDROmorphone 2 mg Oral TID AC ??? levothyroxine 200 mcg Oral QAM ??? calcium carbonate 500 mg Oral Nightly ??? hydrocortisone 10 mg Oral Daily at Noon ??? senna-docusate 2 tablet Oral BID ??? lidocaine 1 patch Transdermal Q24H And ??? lidocaine 1 patch Transdermal Q24H ??? methocarbamol 1,000 mg Oral TID ??? sodium chloride 0.9 % 5 mL Intravenous Q12H ??? melatonin 9 mg Oral Nightly ??? testosterone 5 g Transdermal Nightly ??? desmopressin 0.05 mg Oral 3 times per day ??? methyl salicylate-menthol Topical (Top) BID ??? cholecalciferol (Vitamin D3) 1,000 Units Oral Daily ??? hydrocortisone 20 mg Oral QAM ??? pantoprazole 40 mg Oral QAM AC ??? QUEtiapine 250 mg Oral Nightly ??? traZODone 50 mg Oral Nightly ??? zonisamide 200 mg Oral Nightly Continuous infusions: PRN: acetaminophen, haloperidol, polyethylene glycol (MIRALAX)oral powder, HYDROmorphone, simethicone, sodium chloride 0.9 %, lidocaine, bisacodyl, senna- docusate, naphazoline-pheniramine Interval History: -Some agitation overnight - haldol given -Denies pain this AM - doing awesomely again Subjective/ROS: ROS limited by mental status. Physical Exam Vitals Range last 24 hrs Temperature Temp: [36.8 ??C (98.2 ??F)-36.9 ??C (98.4 ??F)] Heart Rate Heart Rate: [102-115] Blood Pressure BP: (137-140)/(73-79) Respiratory Rate Resp: [16-20] SpO2 SpO2: [96 %-97 %] Intake/Output Summary (Last 24 hours) at 11/24/17 1054 Last data filed at 11/24/17 0828 Gross per 24 hour Intake 1440 ml Output 0 ml Net 1440 ml No data found. There is no height or weight on file to calculate BMI. General - Sitting up in chair playing with toy HEENT - at/nc CV - RRR, no m/r/g Lungs - CTA bilaterally Abd - Soft, ND, +BS, non-tender to palpation Ext - Warm, no edema Studies reviewed in eDH. 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 11/21 advanced to WBAT BLE with assistive device at all times. He was less agitated this AM. Recent agitated behavior issues may be environmental with baseline agitation and lack of normal routine - difficult to assess if he is in pain given can be consistently agitated. Maintain good BM and normonatremia. No fevers to suggest infection. 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 Currently in net bed but continue to assess if worsens agitation. Plan: 1. Left acetabular fracture: Improved -s/p operative repair on 09/04/2017 and orthopedics advanced to WBAT BLE (11/21) -Pain seems to be less of an issue - will start decreasing scheduled dilaudid at this time and follow closely - I think agitation is more related to his baseline mentation and difficulty expressing himself -Continue methocarbamol 1g PO TID for muscle spasms but plan to decrease over coming week -Discharge limited to nursing home with behaviors (rehabilitation) and inability to climb stairs (nursing home) 2. 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 -Appreciate endocrinology recommendations. -Decreased hydrocortisone from 20/ to 20/10 per endocrine on 11/16 -Increased synthroid to 200 mcg 11/23. -Seizures managed with home zonesamide 200mg PO QHS per neurology. 3. Hyponatremia and hypernatremia with DI: Stable - Has been anywhere 2.5 - 4L restriction during this hospitalization. At home seems 3.2L - Continue DDAVP 3 times daily - Follow Na every 3 days 4. Fractured left lower molar: -Likely occurred with seizure and no evidence of acute infection. Extraction to occur in non-urgentmanner pending availability, but per dentistry, not likely anytime soon. ?? 5. 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 Continue to reassess. -Check bladder scan prn -Bowel regimen -Trying a net bed for safety - dc if worsening agitation IV access: None Tubes/Drains: None DVT PPX: Lovenox Anticipated Disposition: Pending improved mobility and weight bearing status Team Pager( Coverage 27/01): #[phone] PCP: NAKIA Cifuentes [phone] Attestation: IPI Certification I certify that I am a D-H credentialed attending provider with admitting privileges and that the patient meets or has met medical necessity to require an inpatient IPI level of care meeting a minimumof two midnights or is on the [facility] inpatient only procedure list (status C) due to: Acetabular fx and hypernatremia REN SANCHEZ III, MD 11/24/2017 * Shruti Lozoya RN - 11/24/2017 6:09 AM EDT 11/23/17-11/24/17 [id number] Patient not wearing masimo due to safety reasons. Pt is not safe to have cords in place due to baseline cognitive status. Will continue to monitor. * Ren Sanchez III, MD - 11/23/2017 11:28 AM EDT Hospital Medicine Attending Daily Progress Note Admit Date: 09/02/2017 Hospital Day 82 days Active Hospital Problems Diagnosis ??? S/P ORIF left acetabulum fracture 09/04/2017 Dr. Lance ??? Postoperative anemia due to acute blood loss ??? Diabetes insipidus ??? Adrenal insufficiency ??? Panhypopituitarism ??? Seizure disorder ??? Hypothyroidism Resolved Hospital Problems Diagnosis Date Resolved No resolved problems to display. [facility] Active Non-Hospital Problems Diagnosis ??? Insomnia ??? Blind ??? CVA (cerebral vascular accident) ??? Urinary incontinence Inpatient Medications: Scheduled ??? acetaminophen 500 mg Oral Q8H ??? HYDROmorphone 4 mg Oral Nightly ??? HYDROmorphone 2 mg Oral TID AC ??? levothyroxine 200 mcg Oral QAM ??? calcium carbonate 500 mg Oral Nightly ??? hydrocortisone 10 mg Oral Daily at Noon ??? senna-docusate 2 tablet Oral BID ??? lidocaine 1 patch Transdermal Q24H And ??? lidocaine 1 patch Transdermal Q24H ??? methocarbamol 1,000 mg Oral TID ??? sodium chloride 0.9 % 5 mL Intravenous Q12H ??? melatonin 9 mg Oral Nightly ??? testosterone 5 g Transdermal Nightly ??? desmopressin 0.05 mg Oral 3 times per day ??? methyl salicylate-menthol Topical (Top) BID ??? cholecalciferol (Vitamin D3) 1,000 Units Oral Daily ??? hydrocortisone 20 mg Oral QAM ??? pantoprazole 40 mg Oral QAM AC ??? QUEtiapine 250 mg Oral Nightly ??? traZODone 50 mg Oral Nightly ??? zonisamide 200 mg Oral Nightly Continuous infusions: PRN: acetaminophen, haloperidol, polyethylene glycol (MIRALAX)oral powder, HYDROmorphone, simethicone, sodium chloride 0.9 %, lidocaine, bisacodyl, senna- docusate, naphazoline-pheniramine Interval History: -Some agitation overnight - haldol given -Denies pain this AM - doing awesomely Subjective/ROS: ROS limited by mental status. Physical Exam Vitals Range last 24 hrs Temperature Temp: [36.2 ??C (97.2 ??F)-37.1 ??C (98.8 ??F)] Heart Rate Heart Rate: [120-123] Blood Pressure BP: (145-171)/(79-89) Respiratory Rate Resp: [20-24] SpO2 SpO2: [97 %] Intake/Output Summary (Last 24 hours) at 11/23/17 1128 Last data filed at 11/23/17 0922 Gross per 24 hour Intake 1897 ml Output 0 ml Net 1897 ml No data found. There is no height or weight on file to calculate BMI. General - Sitting up in bed, naked HEENT - at/nc CV - RRR, no m/r/g Lungs - CTA bilaterally Abd - Soft, ND, +BS, non-tender to palpation Ext - Warm, no edema Studies reviewed in eDH. 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 11/21 advanced to WBAT BLE with assistive device at all times. He was less agitated this AM. Recent agitated behavior issues may be environmental with baseline agitation and lack of normal routine - difficult to assess if he is in pain given can be consistently agitated. Maintain good BM and normonatremia. No fevers to suggest infection. 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 Currently in net bed but continue to assess if worsens agitation. Plan: 1. Left acetabular fracture: Improved -s/p operative repair on 09/04/2017 and orthopedics advanced to WBAT BLE (11/21) -Pain seems to be less of an issue - will start decreasing scheduled dilaudid at this time and follow closely - I think agitation is more related to his baseline mentation and difficulty expressing himself -Continue methocarbamol 1g PO TID for muscle spasms but plan to decrease over coming week -Discharge limited to nursing home with behaviors (rehabilitation) and inability to climb stairs (nursing home) 2. 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 -Appreciate endocrinology recommendations. -Decreased hydrocortisone from 20/10/10 to 20/10 per endocrine on 11/16 -Increased synthroid to 200 mcg 11/23. -Seizures managed with home zonesamide 200mg PO QHS per neurology. 3. Hyponatremia and hypernatremia with DI: Stable - Has been anywhere 2.5 - 4L restriction during this hospitalization. At home seems 3.2L - Continue DDAVP 3 times daily - Follow Na every 3 days 4. Fractured left lower molar: -Likely occurred with seizure and no evidence of acute infection. Extraction to occur in non-urgentmanner pending availability, but per dentistry, not likely anytime soon. ?? 5. 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 Continue to reassess. -Check bladder scan prn -Bowel regimen -Trying a net bed for safety - dc if worsening agitation IV access: None Tubes/Drains: None DVT PPX: Lovenox Anticipated Disposition: Pending improved mobility and weight bearing status Team Pager( Coverage 27/01): #[phone] PCP: NAKIA Cifuentes [phone] Attestation: IPI Certification I certify that I am a D-H credentialed attending provider with admitting privileges and that the patient meets or has met medical necessity to require an inpatient IPI level of care meeting a minimumof two midnights or is on the [facility] inpatient only procedure list (status C) due to: Acetabular fx and hypernatremia REN SANCHEZ III, MD 11/23/2017 * Yadi Mccauley MD - 11/22/2017 1:32 PM EDT Endocrinology Follow Up Progress Note Na is back up from 132-134 to 140 today on DDAVP 0.05 mg po TID Encouraging free water intake given by RN or sister Normal I/O 1.5 L Otherwise stable in the hospital since 09/03/17 Ref. Range 11/18/2017 05:15 11/19/2017 05:52 11/19/2017 17:00 11/22/2017 11:05 Sodium Range: 135 - 145 mmol/L 137 132 (L) 134 (L) 140 Ref. Range 09/14/2017 14:09 11/15/2017 05:15 11/17/2017 05:11 11/22/2017 11:05 T3, Total Range: 75 - 170 ng/dL 80 Free T4 Range: 0.93 - 1.70 ng/dL 1.01 0.71 (L) 0.72 (L) 0.81 (L) Physical Exam: BP 141/77 (BP Location (NBP): Right arm) Pulse 92 Temp 36.7 ??C (98.1 ??F) (Axillary) Resp 20 Ht 177.8 cm (5' 10) Wt 86.6 kg (191 lb) Comment: weight taken postoperatively using bed scale from unit SpO2 100% Current Medications: ??? acetaminophen (TYLENOL) tablet 500 mg ??? haloperidol (HALDOL) tablet 2 mg ??? levothyroxine (SYNTHROID) tablet 175 mcg ??? calcium carbonate (TUMS) chewable tablet 500 mg ??? hydrocortisone (CORTEF) tablet 10 mg ??? senna-docusate (PERICOLACE) 8.6-50 mg per tablet 2 tablet ??? polyethylene glycol (MIRALAX) packet 17 g ??? HYDROmorphone (DILAUDID) tablet 4 mg ??? lidocaine (LIDODERM) 5 % patch 1 patch AND lidocaine (LIDODERM) 5 %(700 mg/patch) Patch Removal ??? HYDROmorphone (DILAUDID) tablet 4 mg ??? methocarbamol (ROBAXIN) tablet 1,000 mg ??? simethicone (MYLICON) chewable tablet 40 mg ??? sodium chloride 0.9 % flush 5 mL ??? sodium chloride 0.9 % flush 5-20 mL ??? lidocaine (XYLOCAINE) 10 mg/mL (1 %) injection 3 mg ??? melatonin tablet 9 mg ??? testosterone (ANDROGEL) 1 % (25 mg/2.5 g) gel 5 g ??? acetaminophen (TYLENOL) tablet 1,000 mg ??? HYDROmorphone (DILAUDID) tablet 6 mg ??? desmopressin (DDAVP) tablet 0.05 mg ??? bisacodyl (DULCOLAX) suppository 10 mg ??? methyl salicylate-menthol (BENGAY) 15-10 % cream ??? cholecalciferol (Vitamin D3) tablet 1,000 Units ??? hydrocortisone (CORTEF) tablet 20 mg ??? enoxaparin (LOVENOX) injection 40 mg ??? senna-docusate (PERICOLACE) 8.6-50 mg per tablet 2 tablet ??? pantoprazole (PROTONIX) tablet 40 mg ??? QUEtiapine (SEROquel) tablet 250 mg ??? traZODone (DESYREL) tablet 50 mg ??? naphazoline-pheniramine (NAPHCON-A) 0.025-0.3 % ophthalmic solution 1 drop ??? 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 Panhypopituitarism DI - Na WNL up from 132-134 to 140 this AM To cont current regimen DDAVP 0.05 mg po TID with holding parameter if low Na <135 Hypothyroidism Increase levothyroxine to 200 mcg daily and check free T4 next Friday Target FT4 in mid normal range. Adrenal insufficiency Ct hydrocortisone 20mg po AM and 10mg po qafternoon YADI MCCAULEY MD * Ren Sanchez III, MD - 11/22/2017 12:17 PM EDT Hospital Medicine Attending Daily Progress Note Admit Date: 09/02/2017 Hospital Day 81 days Active Hospital Problems Diagnosis ??? S/P ORIF left acetabulum fracture 09/04/2017 Dr. Lance ??? Postoperative anemia due to acute blood loss ??? Diabetes insipidus ??? Adrenal insufficiency ??? Panhypopituitarism ??? Seizure disorder ??? Hypothyroidism Resolved Hospital Problems Diagnosis Date Resolved No resolved problems to display. [facility] Active Non-Hospital Problems Diagnosis ??? Insomnia ??? Blind ??? CVA (cerebral vascular accident) ??? Urinary incontinence Inpatient Medications: Scheduled ??? levothyroxine 175 mcg Oral QAM ??? calcium carbonate 500 mg Oral Nightly ??? hydrocortisone 10 mg Oral Daily at Noon ??? senna-docusate 2 tablet Oral BID ??? HYDROmorphone 4 mg Oral TID AC ??? lidocaine 1 patch Transdermal Q24H And ??? lidocaine 1 patch Transdermal Q24H ??? methocarbamol 1,000 mg Oral TID ??? sodium chloride 0.9 % 5 mL Intravenous Q12H ??? melatonin 9 mg Oral Nightly ??? testosterone 5 g Transdermal Nightly ??? acetaminophen 1,000 mg Oral Q8H ??? HYDROmorphone 6 mg Oral Nightly ??? desmopressin 0.05 mg Oral 3 times per day ??? methyl salicylate-menthol Topical (Top) BID ??? cholecalciferol (Vitamin D3) 1,000 Units Oral Daily ??? hydrocortisone 20 mg Oral QAM ??? enoxaparin 40 mg Subcutaneous Nightly ??? pantoprazole 40 mg Oral QAM AC ??? QUEtiapine 250 mg Oral Nightly ??? traZODone 50 mg Oral Nightly ??? zonisamide 200 mg Oral Nightly Continuous infusions: PRN: acetaminophen, haloperidol, polyethylene glycol (MIRALAX)oral powder, HYDROmorphone, simethicone, sodium chloride 0.9 %, lidocaine, bisacodyl, senna- docusate, naphazoline-pheniramine Interval History: -Ate breakfast in chair this AM -Netbed later this AM while sleeping Subjective/ROS: ROS limited by mental status. Physical Exam Vitals Range last 24 hrs Temperature Temp: [36.7 ??C (98.1 ??F)] Heart Rate Heart Rate: [92] Blood Pressure BP: -- Respiratory Rate Resp: [20] SpO2 SpO2: -- Intake/Output Summary (Last 24 hours) at 11/22/17 1217 Last data filed at 11/22/17 1100 Gross per 24 hour Intake 2107 ml Output 0 ml Net 2107 ml No data found. There is no height or weight on file to calculate BMI. General - Lying in net bed, calm/quiet HEENT - at/nc CV - RRR, no m/r/g Lungs - CTA bilaterally Abd - Soft, ND, +BS, non-tender to palpation Ext - Warm, no edema Studies reviewed in eDH. Remarkable for the following: LABS: Last 3 wbc, hgb, hct plt Recent Labs 11/14/17 0508 10/22/17 0502 10/05/17 0555 WBC 5.7 6.6 6.4 HGB 11.5* 12.9* 11.1* HCT 37.4* 40.5 38.6* PLATELET 274 339 281 Last 3 Lytes Recent Labs 11/22/17 1105 11/19/17 1700 11/19/17 0552 NA 140 134* 132* K 4.0 4.2 3.7 CL 101 96* 93* CO2 25 21* 24 BUN 14 12 11 CREATININE 0.84 0.70* 0.79* Last Ca, Mg, Phos Recent Labs 11/22/17 1105 CALCIUM 9.2 IMAGING: XR Pelvis 09/04/2017: Improved alignment after left ischial and acetabular fracture ORIF without evidence of complication. ?? CT Pelvis MSK 09/03/2017: 1. ??Comminuted left acetabular fracture involving the medial wall with posttraumatic protrusio deformity. 2. ??The flat contour of the left femoral head is consistent with fracture. I do not however see displaced fracture typical the shear injury is seen in the setting. It is possible this base of the represent a compression of the femoral surface. 3. ??Pelvic hematoma. ?? XR Chest 09/03/2017: No acute cardiopulmonary pathology identified. ?? XR Knee Left 09/02/2017: Traction device is present. ?? XR pelvis 09/02/2017; Redemonstrated LEFT acetabular fracture extending into the ischium with acetabular protrusio, without appreciable change in alignment. ?? XR Knee Left 09/02/2017: Traction pin traverses the distal femur Assessment: 27 y/o man with panhypopituitarism due to prior pituitary tumor resection complicated by hemorrhage and CVA with cognitive impairment and seizures, with left acetabular fracture with operative repair on 09/04, had been NWB which limited ability to return his prior residence.. 11/21 advanced to WBAT BLE with assistive device at all times. He was less agitated this AM. Recent agitated behavior issues may be environmental with baseline agitation and lack of normal routine - difficult to assess if he is in pain given can be consistently agitated. Maintain good BM and normonatremia. No fevers to suggest infection. 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 Currently in net bed but continue to assess if worsens agitation. Plan: 1. Left acetabular fracture: Improved -s/p operative repair on 09/04/2017 and orthopedics advanced to WBAT BLE (11/21) -Continue current scheduled hydromorphone dose, including hydromorphone 6mg PO QHS, and scheduled APAP for pain control. Oral hydromorphone available PRN. -Continue methocarbamol 1g PO TID for muscle spasms. -Discharge limited to nursing home with behaviors (rehabilitation) and inability to climb stairs (nursing home) 2. 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 -Appreciate endocrinology recommendations. -Decreased hydrocortisone from 20/10/10 to 20/10 per endocrine on 11/16 -Increased synthroid to 175mcg 08/20, dc'd morning tums and repeat T4 in 1-2 weeks (11/23-11/30). -Seizures managed with home zonesamide 200mg PO QHS per neurology. 3. Hyponatremia and hypernatremia with DI: Stable - Has been anywhere 2.5 - 4L restriction during this hospitalization. At home seems 3.2L - Continue DDAVP 3 times daily - Follow Na every 3 days 4. Fractured left lower molar: -Likely occurred with seizure and no evidence of acute infection. Extraction to occur in non-urgentmanner pending availability, but per dentistry, not likely anytime soon. ?? 5. 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 Continue to reassess. -Check bladder scan prn -Bowel regimen -Trying a net bed for safety - dc if worsening agitation IV access: None Tubes/Drains: None DVT PPX: Lovenox Anticipated Disposition: Pending improved mobility and weight bearing status Team Pager( Coverage 27/01): [phone] PCP: NAKIA Cifuentes [phone] Attestation: IPI Certification I certify that I am a D-H credentialed attending provider with admitting privileges and that the patient meets or has met medical necessity to require an inpatient IPI level of care meeting a minimumof two midnights or is on the [facility] inpatient only procedure list (status C) due to: Acetabular fx and hypernatremia REN SANCHEZ III, MD 11/22/2017 * Crista Aguilar MD - 11/21/2017 11:26 AM EDT [facility] Medicine Attending Daily Progress Note Admit Date: 09/02/2017 Hospital Day 80 days Active Hospital Problems Diagnosis ??? S/P ORIF left acetabulum fracture 09/04/2017 Dr. Lance ??? Postoperative anemia due to acute blood loss ??? Diabetes insipidus ??? Adrenal insufficiency ??? Panhypopituitarism ??? Seizure disorder ??? Hypothyroidism Resolved Hospital Problems Diagnosis Date Resolved No resolved problems to display. PMH Active Non-Hospital Problems Diagnosis ??? Insomnia ??? Blind ??? CVA (cerebral vascular accident) ??? Urinary incontinence Inpatient Medications: Scheduled ??? levothyroxine 175 mcg Oral QAM ??? calcium carbonate 500 mg Oral Nightly ??? hydrocortisone 10 mg Oral Daily at Noon ??? senna-docusate 2 tablet Oral BID ??? HYDROmorphone 4 mg Oral TID AC ??? lidocaine 1 patch Transdermal Q24H And ??? lidocaine 1 patch Transdermal Q24H ??? methocarbamol 1,000 mg Oral TID ??? sodium chloride 0.9 % 5 mL Intravenous Q12H ??? melatonin 9 mg Oral Nightly ??? testosterone 5 g Transdermal Nightly ??? acetaminophen 1,000 mg Oral Q8H ??? HYDROmorphone 6 mg Oral Nightly ??? desmopressin 0.05 mg Oral 3 times per day ??? methyl salicylate-menthol Topical (Top) BID ??? cholecalciferol (Vitamin D3) 1,000 Units Oral Daily ??? hydrocortisone 20 mg Oral QAM ??? enoxaparin 40 mg Subcutaneous Nightly ??? pantoprazole 40 mg Oral QAM AC ??? QUEtiapine 250 mg Oral Nightly ??? traZODone 50 mg Oral Nightly ??? zonisamide 200 mg Oral Nightly Continuous infusions: PRN: acetaminophen, haloperidol, polyethylene glycol (MIRALAX)oral powder, HYDROmorphone, simethicone, sodium chloride 0.9 %, lidocaine, bisacodyl, senna- docusate, naphazoline-pheniramine Interval History: -Agitated and refused labs yesterday -Placed in net bed for agitation and concern for hurting himself on railings -Ortho reviewed films this morning - WBAT BLE with assistive device Subjective/ROS: ROS limited by mental status. Per nursing and sitter/caregiver still yelling out but they do not feel more agitated in the net bed. He denies pain but not reliable. Physical Exam Vitals Range last 24 hrs Temperature Temp: [37.2 ??C (99 ??F)] Heart Rate Heart Rate: [96-112] Blood Pressure BP: (135-149)/(75-82) Respiratory Rate Resp: [20] SpO2 SpO2: [97 %-100 %] Intake/Output Summary (Last 24 hours) at 11/21/17 1126 Last data filed at 11/21/17 0742 Gross per 24 hour Intake 1140 ml Output 0 ml Net 1140 ml No data found. There is no height or weight on file to calculate BMI. General - Lying in net bed, calm/quiet for my exam but then yelling out HEENT - Anicteric sclera CV - RRR, no m/r/g Lungs - CTA bilaterally Abd - Soft, ND, +BS, non-tender to palpation Ext - Warm, no edema Studies reviewed in eDH. Remarkable for the following: LABS: Last 3 wbc, hgb, hct plt Recent Labs 11/14/17 0508 10/22/17 0502 10/05/17 0555 WBC 5.7 6.6 6.4 HGB 11.5* 12.9* 11.1* HCT 37.4* 40.5 38.6* PLATELET 274 339 281 Last 3 Lytes Recent Labs 11/19/17 1700 11/19/17 0552 11/18/17 0515 NA 134* 132* 137 K 4.2 3.7 3.6 CL 96* 93* 99 CO2 21* 24 25 BUN 12 11 12 CREATININE 0.70* 0.79* 0.89 Last 3 LFTs Recent Labs 09/04/17 0358 AST 23 ALT 31 ALKPHOS 75 BILITOT 0.5 BILIDIR 0.1 Last Ca, Mg, Phos Recent Labs 11/19/17 1700 CALCIUM 8.7 Last 3 Coags No results for input(s): PT, INR, PTT in the last 168 hours. FSBG Trend No results for input(s): POCGLU in the last 72 hours. MICRO: No results for input(s): URINECULTURE in the last 720 hours. No results for input(s): GRAMSTAIN, BFCX, LOWERRESPCX, TISSUECX in the last 720 hours. No results for input(s): BLOODCX in the last 720 hours. ECG: No results for input(s): DIAGLINE, QTCCALC in the last 720 hours. VASCULAR: No results for input(s): VBTEXTRPT in the last 720 hours. IMAGING: XR Pelvis 09/04/2017: Improved alignment after left ischial and acetabular fracture ORIF without evidence of complication. ?? CT Pelvis MSK 09/03/2017: 1. ??Comminuted left acetabular fracture involving the medial wall with posttraumatic protrusio deformity. 2. ??The flat contour of the left femoral head is consistent with fracture. I do not however see displaced fracture typical the shear injury is seen in the setting. It is possible this base of the represent a compression of the femoral surface. 3. ??Pelvic hematoma. ?? XR Chest 09/03/2017: No acute cardiopulmonary pathology identified. ?? XR Knee Left 09/02/2017: Traction device is present. ?? XR pelvis 09/02/2017; Redemonstrated LEFT acetabular fracture extending into the ischium with acetabular protrusio, without appreciable change in alignment. ?? 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 Today advanced to WBAT BLE with assistive device at all times. He remains agitated but difficult to assess behavioral or related to pain. Does not seem that haldol made significant difference yesterday. Behavior may be environmental with baseline agitation and lack of normal routine - difficult to assess when in pain given can be consistently agitated. Maintain good BM and normonatremia. No fevers to suggest infection. Treating pain as possible class b driver thoughcontinue to assess as has been getting standing opiate dosing (18mg daily) - not sedating but monitor for constipation. Currently in net bed but continue to assess if worsens agitation. I discussed with DPOA, sister Bettina, who was worried that it could make behavior worse. I indicated if the bed increased agitation or not tolerating we would not continue. Sodium remains variable in past week. Na elevated 11/15 and improved with additional po fluid. Na to132 yesterday and decreased to 2.8L and f/u later 134 thus kept DDAVP dosing. Difficult getting labs with agitation but will continue to try. Plan: 1. Left acetabular fracture: -s/p operative repair on 09/04/2017 and orthopedics advanced to WBAT BLE today (11/21) -Continue current scheduled hydromorphone dose, including hydromorphone 6mg PO QHS, and scheduled APAP for pain control. Oral hydromorphone available PRN. - Continue methocarbamol 1g PO TID for musclespasms. -Discharge limited to nursing home with behaviors (rehabilitation) and inability to climb stairs (nursing home) 2. Panhypopituitarism including DI: -Due to 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 -Appreciate endocrinology recommendations. -Decreased hydrocortisone from to 20/10 per endocrine on 11/16 -Increased synthroid to 175mcg 08/20, dc'd morning tums and repeat T4 in 1-2 weeks (11/23-11/30). -Seizures managed with home zonesamide 200mg PO QHS per neurology. 3. Hyponatremia and hypernatremia with DI: - Na most recently lower - decreased from 3.5L to 2.8L (from 4.5L when hyperNa) on 11/19. Has been anywhere 2.5 - 4L restriction during this hospitalization. At home seems 3.2L - Continue DDAVP 3 times daily - Follow Na when able to draw labs 4. Fractured left lower molar: -Likely occurred with seizure and no evidence of acute infection. Extraction to occur in non-urgentmanner pending availability, but per dentistry, not likely anytime soon. ?? 5. 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 Continue to reassess. -Check bladder scan prn -Bowel regimen -Trying a net bed today for safety - dc if worsening agitation IV access: None Tubes/Drains: None DVT PPX: Lovenox Anticipated Disposition: Pending improved mobility and weight bearing status Team Pager( Coverage 27/01): #[phone] PCP: NAKIA Cifuentes [phone] Attestation: IPI Certification I certify that I am a D-H credentialed attending provider with admitting privileges and that the patient meets or has met medical necessity to require an inpatient IPI level of care meeting a minimumof two midnights or is on the CMS inpatient only procedure list (status C) due to: Acetabular fx and hypernatremia Crista Aguilar MD 11/21/2017 * Celine Power MD - 11/21/2017 8:11 AM EDT Orthopaedic Surgery Brief Progress Note: Patient is 11 weeks s/p ORIF left acetabular fx X-rays reviewed and patient is ok to advance to WBAT in bilateral lower extremities, assistive devices at all times. Celine Power MD #[id number] Associated attestation - Amy Lance MD - 11/21/2017 8:58 AM EDT Patient seen and examined. Agree with resident note. Radiographs demonstrate good alignment. Plan to advance to WBAT BLE. PT/OOB. Dispo planning. Mandy Lance MD Department of Orthopaedics 11/21/17 * Crista Aguilar MD - 11/20/2017 6:13 PM EDT Hospital Medicine Attending Daily Progress Note Admit Date: 09/02/2017 Hospital Day 79 days Active Hospital Problems Diagnosis ??? S/P ORIF left acetabulum fracture 09/04/2017 Dr. Lance ??? Postoperative anemia due to acute blood loss ??? Diabetes insipidus ??? Adrenal insufficiency ??? Panhypopituitarism ??? Seizure disorder ??? Hypothyroidism Resolved Hospital Problems Diagnosis Date Resolved No resolved problems to display. PMH Active Non-Hospital Problems Diagnosis ??? Insomnia ??? Blind ??? CVA (cerebral vascular accident) ??? Urinary incontinence Inpatient Medications: Scheduled ??? levothyroxine 175 mcg Oral QAM ??? calcium carbonate 500 mg Oral Nightly ??? hydrocortisone 10 mg Oral Daily at Noon ??? senna-docusate 2 tablet Oral BID ??? HYDROmorphone 4 mg Oral TID AC ??? lidocaine 1 patch Transdermal Q24H And ??? lidocaine 1 patch Transdermal Q24H ??? methocarbamol 1,000 mg Oral TID ??? sodium chloride 0.9 % 5 mL Intravenous Q12H ??? melatonin 9 mg Oral Nightly ??? testosterone 5 g Transdermal Nightly ??? acetaminophen 1,000 mg Oral Q8H ??? HYDROmorphone 6 mg Oral Nightly ??? desmopressin 0.05 mg Oral 3 times per day ??? methyl salicylate-menthol Topical (Top) BID ??? cholecalciferol (Vitamin D3) 1,000 Units Oral Daily ??? hydrocortisone 20 mg Oral QAM ??? enoxaparin 40 mg Subcutaneous Nightly ??? pantoprazole 40 mg Oral QAM AC ??? QUEtiapine 250 mg Oral Nightly ??? traZODone 50 mg Oral Nightly ??? zonisamide 200 mg Oral Nightly Continuous infusions: PRN: acetaminophen, haloperidol, polyethylene glycol (MIRALAX)oral powder, HYDROmorphone, simethicone, sodium chloride 0.9 %, lidocaine, bisacodyl, senna- docusate, naphazoline-pheniramine Interval History: -Na to 134 last night - too agitated for labs this morning Subjective/ROS: ROS limited by mental status. Per nursing agitated this morning and some aggressivebehavior - was calmer on a walk this afternoon but then agitated again. Continues to yell out. No documented fevers or chills. Last BM 11/18. Physical Exam Vitals Range last 24 hrs Temperature Temp: [36.6 ??C (97.9 ??F)-37.2 ??C (99 ??F)] Heart Rate Heart Rate: [90-112] Blood Pressure BP: (124-149)/(75-81) Respiratory Rate Resp: [20-22] SpO2 SpO2: [96 %-98 %] Intake/Output Summary (Last 24 hours) at 11/20/17 1813 Last data filed at 11/20/17 1700 Gross per 24 hour Intake 1076 ml Output 0 ml Net 1076 ml No data found. There is no height or weight on file to calculate BMI. General - Sitting in chair, calm for my exam HEENT - Anicteric sclera CV - RRR, no m/r/g Lungs - CTA bilaterally Abd - Soft, ND, +BS, non-tender to palpation Ext - Warm, no edema Studies reviewed in eDH. Remarkable for the following: LABS: Last 3 wbc, hgb, hct plt Recent Labs 11/14/17 0508 10/22/17 0502 10/05/17 0555 WBC 5.7 6.6 6.4 HGB 11.5* 12.9* 11.1* HCT 37.4* 40.5 38.6* PLATELET 274 339 281 Last 3 Lytes Recent Labs 11/19/17 1700 11/19/17 0552 11/18/17 0515 NA 134* 132* 137 K 4.2 3.7 3.6 CL 96* 93* 99 CO2 21* 24 25 BUN 12 11 12 CREATININE 0.70* 0.79* 0.89 Last 3 LFTs Recent Labs 09/04/17 0358 AST 23 ALT 31 ALKPHOS 75 BILITOT 0.5 BILIDIR 0.1 Last Ca, Mg, Phos Recent Labs 11/19/17 1700 CALCIUM 8.7 Last 3 Coags No results for input(s): PT, INR, PTT in the last 168 hours. FSBG Trend Recent Labs 11/18/17 0309 POCGLU 146 MICRO: No results for input(s): URINECULTURE in the last 720 hours. No results for input(s): GRAMSTAIN, BFCX, LOWERRESPCX, TISSUECX in the last 720 hours. No results for input(s): BLOODCX in the last 720 hours. ECG: No results for input(s): DIAGLINE, QTCCALC in the last 720 hours. VASCULAR: No results for input(s): VBTEXTRPT in the last 720 hours. IMAGING: XR Pelvis 09/04/2017: Improved alignment after left ischial and acetabular fracture ORIF without evidence of complication. ?? CT Pelvis MSK 09/03/2017: 1. ??Comminuted left acetabular fracture involving the medial wall with posttraumatic protrusio deformity. 2. ??The flat contour of the left femoral head is consistent with fracture. I do not however see displaced fracture typical the shear injury is seen in the setting. It is possible this base of the represent a compression of the femoral surface. 3. ??Pelvic hematoma. ?? XR Chest 09/03/2017: No acute cardiopulmonary pathology identified. ?? XR Knee Left 09/02/2017: Traction device is present. ?? XR pelvis 09/02/2017; Redemonstrated LEFT acetabular fracture extending into the ischium with acetabular protrusio, without appreciable change in alignment. ?? 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 He remains agitated but difficult to assess behavioral or related to pain. Does not seem that haldol made significant difference. Behavior may be environmental with baseline agitation and lack of normal routine - difficult to assess when in pain given can be consistently agitated. Maintain good BM and normonatremia. No fevers to suggest infection. 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 Discussed with nursing who are wondering about a net bed for safety. I discussed with DPOA who felt he would destroy a net bed and that it could make behavior worse. I indicated if the bed increased agitation or not tolerating we would not continue. Sodium remains variable in recent days. Na elevated 11/15 and improved with additional po fluid. Na to 132 yesterday and decreased to 2.8L and f/u later 134 thus kept DDAVP dosing. If remains low again, hold 1 dose of DDAVP with close monitoring. Endo recommended increasing synthroid to 175mcg 11/17. Spoke with ortho today who will review recent films with Dr. Lance to determine weight bearing status Plan: 1. Left acetabular fracture: -s/p operative repair on 09/04/2017 and orthopedics recommending NWB LLE for now until they reassess recent films (to review with Dr. Lance) -Continue current scheduled hydromorphone dose, including hydromorphone 6mg PO QHS, and scheduled APAP for pain control. Oral hydromorphone available PRN. - Continue methocarbamol 1g PO TID for musclespasms. -Follow-up images done - discuss with ortho for mobility recs - they will review with attending andget back to us -Discharge limited to nursing home with behaviors (rehabilitation) and inability to climb stairs (nursing home) 2. Panhypopituitarism including DI: -Due to 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 -Appreciate endocrinology recommendations. -Decreased hydrocortisone from 20//10 to 20/10 per endocrine on 11/16 -Increased synthroid to 175mcg 08/20, dc'd morning tums and repeat T4 in one week (11/23). -Seizures managed with home zonesamide 200mg PO QHS per neurology. 3. Hyponatremia and hypernatremia with DI: - Na now lower - decreased from 3.5L to 2.8L (from 4.5L when hyperNa) on 11/19 - Continue DDAVP 3 times daily - Follow Na later today and hold DDAVP for 1 dose if remains low 4. Fractured left lower molar: -Likely occurred with seizure and no evidence of acute infection. Extraction to occur in non-urgentmanner pending availability, but per dentistry, not likely anytime soon. ?? 5. 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 Continue to reassess. -Check bladder scan prn -Bowel regimen -Trying a net bed today for safety - dc if worsening agitation IV access: None Tubes/Drains: None DVT PPX: Lovenox Anticipated Disposition: Pending improved mobility and weight bearing status Team Pager(MD Coverage 27/01): #[phone] PCP: NAKIA Cifuentes [phone] Attestation: IPI Certification I certify that I am a D-H credentialed attending provider with admitting privileges and that the patient meets or has met medical necessity to require an inpatient IPI level of care meeting a minimumof two midnights or is on the [facility] inpatient only procedure list (status C) due to: Acetabular fx and hypernatremia Crista Aguilar MD 11/20/2017 * Louis Doran PTA - 11/20/2017 1:32 PM EDT Physical Therapy Treatment Note Attempted to see pt twice today however pt was agitated and not following directions well. Will follow up with pt at a later date. Pager: [phone] LOUIS DORAN PTA Physical Therapy Rehabilitation Department * Ren Walters OTA - 11/20/2017 11:10 AM EDT Met with pt this morning. Pt at first was eager to participate with therapy but quickly became agitated and aggressive when asked to follow commands. Reviewed with pt the expectations for his behavior during therapy. Attempt rewarding pt with grapes and ice but was unsuccessful. Will attempt again when pt is more appropriate. * Ren Walters OTA - 11/19/2017 2:38 PM EDT Attempted to work with pt this afternoon, pt presented with increased aggetation and not appropriate for therapy at this time. Will attempt again at a later time. Ren MAYA Pager: [phone] * Crista Aguilar MD - 11/19/2017 10:43 AM EDT Hospital Medicine Attending Daily Progress Note Admit Date: 09/02/2017 Hospital Day 78 days Active Hospital Problems Diagnosis ??? S/P ORIF left acetabulum fracture 09/04/2017 Dr. Lance ??? Postoperative anemia due to acute blood loss ??? Diabetes insipidus ??? Adrenal insufficiency ??? Panhypopituitarism ??? Seizure disorder ??? Hypothyroidism Resolved Hospital Problems Diagnosis Date Resolved No resolved problems to display. PMH Active Non-Hospital Problems Diagnosis ??? Insomnia ??? Blind ??? CVA (cerebral vascular accident) ??? Urinary incontinence Inpatient Medications: Scheduled ??? levothyroxine 175 mcg Oral QAM ??? calcium carbonate 500 mg Oral Nightly ??? hydrocortisone 10 mg Oral Daily at Noon ??? senna-docusate 2 tablet Oral BID ??? HYDROmorphone 4 mg Oral TID AC ??? lidocaine 1 patch Transdermal Q24H And ??? lidocaine 1 patch Transdermal Q24H ??? methocarbamol 1,000 mg Oral TID ??? sodium chloride 0.9 % 5 mL Intravenous Q12H ??? melatonin 9 mg Oral Nightly ??? testosterone 5 g Transdermal Nightly ??? acetaminophen 1,000 mg Oral Q8H ??? HYDROmorphone 6 mg Oral Nightly ??? desmopressin 0.05 mg Oral 3 times per day ??? methyl salicylate-menthol Topical (Top) BID ??? cholecalciferol (Vitamin D3) 1,000 Units Oral Daily ??? hydrocortisone 20 mg Oral QAM ??? enoxaparin 40 mg Subcutaneous Nightly ??? pantoprazole 40 mg Oral QAM AC ??? QUEtiapine 250 mg Oral Nightly ??? traZODone 50 mg Oral Nightly ??? zonisamide 200 mg Oral Nightly Continuous infusions: PRN: polyethylene glycol (MIRALAX)oral powder, HYDROmorphone, simethicone, sodium chloride 0.9 %, lidocaine, bisacodyl, senna-docusate, naphazoline-pheniramine Interval History: -Na to 132 today ROS: Calmer initially but again yelling/agitated later in day. ROS limited by mental status. Physical Exam Vitals Range last 24 hrs Temperature Temp: [36.1 ??C (97 ??F)-36.5 ??C (97.7 ??F)] Heart Rate Heart Rate: [98-106] Blood Pressure BP: (130-143)/(83-88) Respiratory Rate Resp: [16-26] SpO2 SpO2: [93 %-98 %] Intake/Output Summary (Last 24 hours) at 11/19/17 1043 Last data filed at 11/19/17 0945 Gross per 24 hour Intake 3365 ml Output 0 ml Net 3365 ml No data found. There is no height or weight on file to calculate BMI. General - Lying in bed, calm for my exam HEENT - Anicteric sclera CV - RRR, no m/r/g Lungs - CTA bilaterally Abd - Soft, ND, +BS, non-tender to palpation Ext - Warm, no edema Studies reviewed in eDH. Remarkable for the following: LABS: Last 3 wbc, hgb, hct plt Recent Labs 11/14/17 0508 10/22/17 0502 10/05/17 0555 WBC 5.7 6.6 6.4 HGB 11.5* 12.9* 11.1* HCT 37.4* 40.5 38.6* PLATELET 274 339 281 Last 3 Lytes Recent Labs 11/19/17 0552 11/18/17 0515 11/17/17 0909 NA 132* 137 139 K 3.7 3.6 3.4* CL 93* 99 100 CO2 24 25 24 BUN 11 12 17 CREATININE 0.79* 0.89 0.87 Last 3 LFTs Recent Labs 09/04/17 0358 AST 23 ALT 31 ALKPHOS 75 BILITOT 0.5 BILIDIR 0.1 Last Ca, Mg, Phos Recent Labs 11/19/17 0552 CALCIUM 8.9 Last 3 Coags No results for input(s): PT, INR, PTT in the last 168 hours. FSBG Trend Recent Labs 11/18/17 0309 POCGLU 146 MICRO: No results for input(s): URINECULTURE in the last 720 hours. No results for input(s): GRAMSTAIN, BFCX, LOWERRESPCX, TISSUECX in the last 720 hours. No results for input(s): BLOODCX in the last 720 hours. ECG: No results for input(s): DIAGLINE, QTCCALC in the last 720 hours. VASCULAR: No results for input(s): VBTEXTRPT in the last 720 hours. IMAGING: XR Pelvis 09/04/2017: Improved alignment after left ischial and acetabular fracture ORIF without evidence of complication. ?? CT Pelvis MSK 09/03/2017: 1. ??Comminuted left acetabular fracture involving the medial wall with posttraumatic protrusio deformity. 2. ??The flat contour of the left femoral head is consistent with fracture. I do not however see displaced fracture typical the shear injury is seen in the setting. It is possible this base of the represent a compression of the femoral surface. 3. ??Pelvic hematoma. ?? XR Chest 09/03/2017: No acute cardiopulmonary pathology identified. ?? XR Knee Left 09/02/2017: Traction device is present. ?? XR pelvis 09/02/2017; Redemonstrated LEFT acetabular fracture extending into the ischium with acetabular protrusio, without appreciable change in alignment. ?? 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 Sodium is primarily issue in recent days. Na elevated 11/15 and improved with additional po fluid. Now Na to 132 - will decrease to 2.8L and f/u later today. If remains low, hold 1 dose of DDAVP with close monitoring. Endo recommended increasing synthroid to 175mcg 11/17. Behavior may be environmental with baseline agitation and lack of normal routine - difficult to assess when in pain given can be consistently agitated. Maintain good BM and normonatremia. No fevers to suggest infection. 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 Spoke with ortho who will review recent films with Dr. Lance to determine weight bearing status Plan: 1. Left acetabular fracture: -s/p operative repair on 09/04/2017 and orthopedics recommending NWB LLE through at least November 21 follow-up; then reassess -Continue current scheduled hydromorphone dose, including hydromorphone 6mg PO QHS, and scheduled APAP for pain control. Oral hydromorphone available PRN. - Continue methocarbamol 1g PO TID for musclespasms. -Follow-up images done - discuss with ortho for mobility recs - will review with attending and get back to us -Discharge limited to nursing home with behaviors (rehabilitation) and inability to climb stairs (nursing home) 2. Panhypopituitarism including DI: -Due to 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 -Appreciate endocrinology recommendations. -Decreased hydrocortisone from 20/10/10 to 20/10 per endocrine on 11/16 -Increased synthroid to 175mcg 08/20, dc morning tums and repeat T4 in one week (11/23). -Seizures managed with home zonesamide 200mg PO QHS per neurology. 3. Hypernatremia with DI: - Na improved - but now lower - decrease from 3.5L to 2.8L (from 4.5L when hyperNa) - Continue DDAVP 3 times daily - Follow Na later today and hold DDAVP for 1 dose if remains low 4. Fractured left lower molar: -Likely occurred with seizure and no evidence of acute infection. Extraction to occur in non-urgentmanner pending availability, but per dentistry, not likely anytime soon. ?? 5. 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 Continue to reassess. -Check bladder scan prn -Bowel regimen IV access: None Tubes/Drains: None DVT PPX: Lovenox Anticipated Disposition: Pending improved mobility Team Pager( Coverage 27/01): [phone] PCP: NAKIA Cifuentes [phone] Attestation: IPI Certification I certify that I am a D-H credentialed attending provider with admitting privileges and that the patient meets or has met medical necessity to require an inpatient IPI level of care meeting a minimumof two midnights or is on the [facility] inpatient only procedure list (status C) due to: Acetabular fx and hypernatremia Crista Aguilar MD 11/19/2017 * Crista Aguilar MD - 11/18/2017 4:36 PM EDT Hospital Medicine Attending Daily Progress Note Admit Date: 09/02/2017 Hospital Day 77 days Active Hospital Problems Diagnosis ??? S/P ORIF left acetabulum fracture 09/04/2017 Dr. Lance ??? Postoperative anemia due to acute blood loss ??? Diabetes insipidus ??? Adrenal insufficiency ??? Panhypopituitarism ??? Seizure disorder ??? Hypothyroidism Resolved Hospital Problems Diagnosis Date Resolved No resolved problems to display. PMH Active Non-Hospital Problems Diagnosis ??? Insomnia ??? Blind ??? CVA (cerebral vascular accident) ??? Urinary incontinence Inpatient Medications: Scheduled ??? levothyroxine 175 mcg Oral QAM ??? calcium carbonate 500 mg Oral Nightly ??? hydrocortisone 10 mg Oral Daily at Noon ??? senna-docusate 2 tablet Oral BID ??? HYDROmorphone 4 mg Oral TID AC ??? lidocaine 1 patch Transdermal Q24H And ??? lidocaine 1 patch Transdermal Q24H ??? methocarbamol 1,000 mg Oral TID ??? sodium chloride 0.9 % 5 mL Intravenous Q12H ??? melatonin 9 mg Oral Nightly ??? testosterone 5 g Transdermal Nightly ??? acetaminophen 1,000 mg Oral Q8H ??? HYDROmorphone 6 mg Oral Nightly ??? desmopressin 0.05 mg Oral 3 times per day ??? methyl salicylate-menthol Topical (Top) BID ??? cholecalciferol (Vitamin D3) 1,000 Units Oral Daily ??? hydrocortisone 20 mg Oral QAM ??? enoxaparin 40 mg Subcutaneous Nightly ??? pantoprazole 40 mg Oral QAM AC ??? QUEtiapine 250 mg Oral Nightly ??? traZODone 50 mg Oral Nightly ??? zonisamide 200 mg Oral Nightly Continuous infusions: PRN: polyethylene glycol (MIRALAX)oral powder, HYDROmorphone, simethicone, sodium chloride 0.9 %, lidocaine, bisacodyl, senna-docusate, naphazoline-pheniramine Interval History: -Na improved -Fall with images without acute fracture ROS: Calmer on my visit today. Spoke with caregiver, [employer] and having a calmer day. No reported fevers, chills. Urinating. Physical Exam Vitals Range last 24 hrs Temperature Temp: [36.1 ??C (97 ??F)-36.7 ??C (98.1 ??F)] Heart Rate Heart Rate: [99-102] Blood Pressure BP: (111-143)/(81-83) Respiratory Rate Resp: [16-20] SpO2 SpO2: [93 %] Intake/Output Summary (Last 24 hours) at 11/18/17 1636 Last data filed at 11/18/17 1300 Gross per 24 hour Intake 2160 ml Output 0 ml Net 2160 ml No data found. There is no height or weight on file to calculate BMI. General - Lying in bed, calmer, NAD HEENT - Anicteric sclera CV - RRR, no m/r/g Lungs - CTA bilaterally Abd - Soft, ND, +BS, non-tender to palpation Ext - Warm, no edema Studies reviewed in eDH. Remarkable for the following: LABS: Last 3 wbc, hgb, hct plt Recent Labs 11/14/17 0508 10/22/17 0502 10/05/17 0555 WBC 5.7 6.6 6.4 HGB 11.5* 12.9* 11.1* HCT 37.4* 40.5 38.6* PLATELET 274 339 281 Last 3 Lytes Recent Labs 11/18/17 0515 11/17/17 0909 11/17/17 0511 NA 137 139 138 K 3.6 3.4* 3.4* CL 99 100 99 CO2 25 24 24 BUN 12 17 17 CREATININE 0.89 0.87 0.84 Last 3 LFTs Recent Labs 09/04/17 0358 AST 23 ALT 31 ALKPHOS 75 BILITOT 0.5 BILIDIR 0.1 Last Ca, Mg, Phos Recent Labs 11/18/17 0515 CALCIUM 8.4* Last 3 Coags No results for input(s): PT, INR, PTT in the last 168 hours. FSBG Trend Recent Labs 11/18/17 0309 POCGLU 146 MICRO: No results for input(s): URINECULTURE in the last 720 hours. No results for input(s): GRAMSTAIN, BFCX, LOWERRESPCX, TISSUECX in the last 720 hours. No results for input(s): BLOODCX in the last 720 hours. ECG: No results for input(s): DIAGLINE, QTCCALC in the last 720 hours. VASCULAR: No results for input(s): VBTEXTRPT in the last 720 hours. IMAGING: XR Pelvis 09/04/2017: Improved alignment after left ischial and acetabular fracture ORIF without evidence of complication. ?? CT Pelvis MSK 09/03/2017: 1. ??Comminuted left acetabular fracture involving the medial wall with posttraumatic protrusio deformity. 2. ??The flat contour of the left femoral head is consistent with fracture. I do not however see displaced fracture typical the shear injury is seen in the setting. It is possible this base of the represent a compression of the femoral surface. 3. ??Pelvic hematoma. ?? XR Chest 09/03/2017: No acute cardiopulmonary pathology identified. ?? XR Knee Left 09/02/2017: Traction device is present. ?? XR pelvis 09/02/2017; Redemonstrated LEFT acetabular fracture extending into the ischium with acetabular protrusio, without appreciable change in alignment. ?? 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 Na elevated 11/15 and improved with additional po fluid. Limited at this point to oral free water given behavior would limit ability for IV. Currently fluid at 3.5L and monitor. Endo recommended increasing synthroid to 175mcg 11/17. Behavior may be environmental with baseline agitation and lack of normal routine - calmer today. Maintain good BM and normonatremia. No fevers to suggest infection. 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 Plan: 1. Left acetabular fracture: -s/p operative repair on 09/04/2017 and orthopedics recommending NWB LLE through at least November 21 follow-up; then reassess -Continue current scheduled hydromorphone dose, including hydromorphone 6mg PO QHS, and scheduled APAP for pain control. Oral hydromorphone available PRN. - Continue methocarbamol 1g PO TID for musclespasms. -Follow-up images done - discuss with ortho for mobility recs, -Discharge limited to nursing home with behaviors (rehabilitation) and inability to climb stairs (nursing home) 2. Panhypopituitarism including DI: -Due to 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 -Appreciate endocrinology recommendations. -Decreased hydrocortisone from 20/10/10 to 20/10 per endocrine on 11/16 -Increased synthroid to 175mcg 08/20, dc morning tums and repeat T4 in one week (11/23). -Seizures managed with home zonesamide 200mg PO QHS per neurology. 3. Hypernatremia with DI: - Na improved - continue fluids at 3.5L (from 4.5L when hyperNa) - Continue DDAVP 3 times daily - Follow Na 4. Fractured left lower molar: -Likely occurred with seizure and no evidence of acute infection. Extraction to occur in non-urgentmanner pending availability, but per dentistry, not likely anytime soon. ?? 5. Metabolic encephalopathy: -Agitation seems in part due to pain. 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 Continue to reassess. -Check bladder scan prn -Bowel regimen IV access: None Tubes/Drains: None DVT PPX: Lovenox Anticipated Disposition: Pending improved mobility Team Pager( Coverage 27/01): #[phone] PCP: NAKIA Cifuentes [phone] Attestation: IPI Certification I certify that I am a D-H credentialed attending provider with admitting privileges and that the patient meets or has met medical necessity to require an inpatient IPI level of care meeting a minimumof two midnights or is on the [facility] inpatient only procedure list (status C) due to: Acetabular fx and hypernatremia Crista Aguilar MD 11/18/2017 * Yadi Mccauley MD - 11/17/2017 12:44 PM EDT Images from the original note were not included. Endocrinology Follow Up Progress Note Physical Exam: BP 124/68 (Patient Position: Lying) Pulse 96 Temp 36.9 ??C (98.4 ??F) (Oral) Resp 18 Ht 177.8 cm (5' 10) Wt 86.6 kg (191 lb) Comment: weight taken postoperatively using bed scale from unit SpO2 95% Current Medications: ??? calcium carbonate (TUMS) chewable tablet 500 mg ??? hydrocortisone (CORTEF) tablet 10 mg ??? senna-docusate (PERICOLACE) 8.6-50 mg per tablet 2 tablet ??? polyethylene glycol (MIRALAX) packet 17 g ??? HYDROmorphone (DILAUDID) tablet 4 mg ??? lidocaine (LIDODERM) 5 % patch 1 patch AND lidocaine (LIDODERM) 5 %(700 mg/patch) Patch Removal ??? HYDROmorphone (DILAUDID) tablet 4 mg ??? methocarbamol (ROBAXIN) tablet 1,000 mg ??? simethicone (MYLICON) chewable tablet 40 mg ??? sodium chloride 0.9 % flush 5 mL ??? sodium chloride 0.9 % flush 5-20 mL ??? lidocaine (XYLOCAINE) 10 mg/mL (1 %) injection 3 mg ??? melatonin tablet 9 mg ??? testosterone (ANDROGEL) 1 % (25 mg/2.5 g) gel 5 g ??? acetaminophen (TYLENOL) tablet 1,000 mg ??? HYDROmorphone (DILAUDID) tablet 6 mg ??? desmopressin (DDAVP) tablet 0.05 mg ??? bisacodyl (DULCOLAX) suppository 10 mg ??? methyl salicylate-menthol (BENGAY) 15-10 % cream ??? cholecalciferol (Vitamin D3) tablet 1,000 Units ??? hydrocortisone (CORTEF) tablet 20 mg ??? enoxaparin (LOVENOX) injection 40 mg ??? senna-docusate (PERICOLACE) 8.6-50 mg per tablet 2 tablet ??? levothyroxine (SYNTHROID) tablet 150 mcg ??? pantoprazole (PROTONIX) tablet 40 mg ??? QUEtiapine (SEROquel) tablet 250 mg ??? traZODone (DESYREL) tablet 50 mg ??? naphazoline-pheniramine (NAPHCON-A) 0.025-0.3 % ophthalmic solution 1 drop ??? zonisamide (ZONEGRAN) capsule 200 mg Labs: Recent Results (from the past 24 hour(s)) Basic Metabolic Panel (non-fasting) Result Value Ref Range Glucose Lvl 111 65 - 199 mg/dL BUN 20 10 - 20 mg/dL Creatinine 1.15 0.80 - 1.50 mg/dL Sodium 142 135 - 145 mmol/L Potassium 3.8 3.5 - 5.0 mmol/L Chloride 101 98 - 107 mmol/L CO2 25 22 - 31 mmol/L Anion Gap 16 (H) 5 - 15 mmol/L Calcium 8.8 8.5 - 10.5 mg/dL Estimated GFR >60 >=60 Basic Metabolic Panel (non-fasting) Result Value Ref Range Glucose Lvl 87 65 - 199 mg/dL BUN 17 10 - 20 mg/dL Creatinine 0.84 0.80 - 1.50 mg/dL Sodium 138 135 - 145 mmol/L Potassium 3.4 (L) 3.5 - 5.0 mmol/L Chloride 99 98 - 107 mmol/L CO2 24 22 - 31 mmol/L Anion Gap 15 5 - 15 mmol/L Calcium 8.5 8.5 - 10.5 mg/dL Estimated GFR >60 >=60 T4, free Result Value Ref Range Free T4 0.72 (L) 0.93 - 1.70 ng/dL T3 Total Result Value Ref Range T3, Total 80 75 - 170 ng/dL BMP w/fasting Glucose Result Value Ref Range Glucose Fasting 112 (H) 65 - 99 mg/dL BUN 17 10 - 20 mg/dL Creatinine 0.87 0.80 - 1.50 mg/dL Sodium 139 135 - 145 mmol/L Potassium 3.4 (L) 3.5 - 5.0 mmol/L Chloride 100 98 - 107 mmol/L CO2 24 22 - 31 mmol/L Anion Gap 15 5 - 15 mmol/L Calcium 8.9 8.5 - 10.5 mg/dL Estimated GFR >60 >=60 Assessment: 27 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 Panhypopituitarism DI - Na WNL No change to current regimen Hypothyroidism Increase levothyroxine to 175mcg daily and check free T4 on Friday Adrenal insufficiency Ct hydrocortisone 20mg po AM and 10mg po qafternoon Patient discussed with Dr Mccauley and Primary Team Felecia Oneil MD PGY-5 Endocrinology Fellow 11/17/2017 I have seen the patient and reviewed Dr. Oneil's above history and I agree with the details as written. The assessment and plan were formulated in discussion with me and I agree with them as documented. YADI MCCAULEY MD * Crista Aguilar MD - 11/17/2017 11:45 AM EDT Hospital Medicine Attending Daily Progress Note Admit Date: 09/02/2017 Hospital Day 76 days Active Hospital Problems Diagnosis ??? S/P ORIF left acetabulum fracture 09/04/2017 Dr. Lance ??? Postoperative anemia due to acute blood loss ??? Diabetes insipidus ??? Adrenal insufficiency ??? Panhypopituitarism ??? Seizure disorder ??? Hypothyroidism Resolved Hospital Problems Diagnosis Date Resolved No resolved problems to [facility]. PM Active Non-Hospital Problems Diagnosis ??? Insomnia ??? Blind ??? CVA (cerebral vascular accident) ??? Urinary incontinence Inpatient Medications: Scheduled ??? calcium carbonate 500 mg Oral Nightly ??? hydrocortisone 10 mg Oral Daily at Noon ??? senna-docusate 2 tablet Oral BID ??? HYDROmorphone 4 mg Oral TID AC ??? lidocaine 1 patch Transdermal Q24H And ??? lidocaine 1 patch Transdermal Q24H ??? methocarbamol 1,000 mg Oral TID ??? sodium chloride 0.9 % 5 mL Intravenous Q12H ??? melatonin 9 mg Oral Nightly ??? testosterone 5 g Transdermal Nightly ??? acetaminophen 1,000 mg Oral Q8H ??? HYDROmorphone 6 mg Oral Nightly ??? desmopressin 0.05 mg Oral 3 times per day ??? methyl salicylate-menthol Topical (Top) BID ??? cholecalciferol (Vitamin D3) 1,000 Units Oral Daily ??? hydrocortisone 20 mg Oral QAM ??? enoxaparin 40 mg Subcutaneous Nightly ??? levothyroxine 150 mcg Oral QAM ??? pantoprazole 40 mg Oral QAM AC ??? QUEtiapine 250 mg Oral Nightly ??? traZODone 50 mg Oral Nightly ??? zonisamide 200 mg Oral Nightly Continuous infusions: PRN: polyethylene glycol (MIRALAX)oral powder, HYDROmorphone, simethicone, sodium chloride 0.9 %, lidocaine, bisacodyl, senna-docusate, naphazoline-pheniramine Interval History: -Continues with sitter -Urinary retention -Na to 151 to 152 - encouraging free water given limited IV with behavior ROS: Agitated today and not able to complete ROS with mental status. Spoke with sitter who felt he was similar to last week when she was with him (yelling out). Difficult to discern but seems may be pain component and using dilaudid. No vomiting. Taking po well. Last BM 11/14. Physical Exam Vitals Range last 24 hrs Temperature Temp: [36.6 ??C (97.9 ??F)-37.3 ??C (99.1 ??F)] Heart Rate Heart Rate: [96-131] Blood Pressure BP: (124-144)/(68-85) Respiratory Rate Resp: [16-20] SpO2 SpO2: [95 %-96 %] Intake/Output Summary (Last 24 hours) at 11/17/17 1145 Last data filed at 11/17/17 0530 Gross per 24 hour Intake 1610 ml Output 1150 ml Net 460 ml No data found. There is no height or weight on file to calculate BMI. General - Lying in bed, yelling out but calm for my exam, was wincing and grabbing his knee HEENT - Anicteric sclera CV - RRR Lungs - CTA bilaterally Abd - Soft, ND, +BS, non-tender to palpation Ext - Warm, no edema Studies reviewed in eDH. Remarkable for the following: LABS: Last 3 wbc, hgb, hct plt Recent Labs 11/14/17 0508 10/22/17 0502 10/05/17 0555 WBC 5.7 6.6 6.4 HGB 11.5* 12.9* 11.1* HCT 37.4* 40.5 38.6* PLATELET 274 339 281 Last 3 Lytes Recent Labs 11/17/17 0909 11/17/17 0511 11/16/17 1952 NA 139 138 142 K 3.4* 3.4* 3.8 CL 100 99 101 CO2 24 24 25 BUN 17 17 20 CREATININE 0.87 0.84 1.15 Last 3 LFTs Recent Labs 09/04/17 0358 AST 23 ALT 31 ALKPHOS 75 BILITOT 0.5 BILIDIR 0.1 Last Ca, Mg, Phos Recent Labs 11/17/17 0909 CALCIUM 8.9 Last 3 Coags No results for input(s): PT, INR, PTT in the last 168 hours. FSBG Trend No results for input(s): POCGLU in the last 72 hours. MICRO: No results for input(s): URINECULTURE in the last 720 hours. No results for input(s): GRAMSTAIN, BFCX, LOWERRESPCX, TISSUECX in the last 720 hours. No results for input(s): BLOODCX in the last 720 hours. ECG: No results for input(s): DIAGLINE, QTCCALC in the last 720 hours. VASCULAR: No results for input(s): VBTEXTRPT in the last 720 hours. IMAGING: XR Pelvis 09/04/2017: Improved alignment after left ischial and acetabular fracture ORIF without evidence of complication. ?? CT Pelvis MSK 09/03/2017: 1. ??Comminuted left acetabular fracture involving the medial wall with posttraumatic protrusio deformity. 2. ??The flat contour of the left femoral head is consistent with fracture. I do not however see displaced fracture typical the shear injury is seen in the setting. It is possible this base of the represent a compression of the femoral surface. 3. ??Pelvic hematoma. ?? XR Chest 09/03/2017: No acute cardiopulmonary pathology identified. ?? XR Knee Left 09/02/2017: Traction device is present. ?? XR pelvis 09/02/2017; Redemonstrated LEFT acetabular fracture extending into the ischium with acetabular protrusio, without appreciable change in alignment. ?? 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 Na elevated 11/15 and improved with additional po fluid. Limited at this point to oral free water given behavior would limit ability for IV. Have decreased fluid to 3.5L and monitor. Endo recommended increasing synthroid to 175mcg. Behavior may be environmental with baseline agitation. Ensure not retaining urine, not constipated.No fevers to suggest infection. 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 Plan: 1. Left acetabular fracture: -s/p operative repair on 09/04/2017 and orthopedics recommending NWB LLE through at least November 21 follow-up; then reassess -Continue current scheduled hydromorphone dose, including hydromorphone 6mg PO QHS, and scheduled APAP for pain control. Oral hydromorphone available PRN. - Continue methocarbamol 1g PO TID for musclespasms. -Follow-up scheduled for 11/21/2017, but may not be able to be discharged before then due to behaviors (rehabilitation) and inability to climb stairs (nursing home). 2. Panhypopituitarism including DI: -Due to 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 -Appreciate endocrinology recommendations. -Decreased hydrocortisone from 20/10/10 to 20/10 per endocrine on 11/16 -Increase synthroid to 175mcg, dc morning tums and repeat T4 in one week (11/23). -Seizures managed with home zonesamide 200mg PO QHS per neurology. 3. Hypernatremia with DI: - Na improved - decrease fluids to 3.5L (from 4.5L when hyperNa) - Continue DDAVP 3 times daily - Follow Na 4. Fractured left lower molar: -Likely occurred with seizure and no evidence of acute infection. Extraction to occur in non-urgentmanner pending availability, but per dentistry, not likely anytime soon. ?? 5. Metabolic encephalopathy: -Agitation seems in part due to pain. 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 Continue to reassess. -Check bladder scan prn -Bowel regimen IV access: None Tubes/Drains: None DVT PPX: Lovenox Anticipated Disposition: Pending improved mobility Team Pager(MD Coverage 27/01): #[phone] PCP: NAKIA Cifuentes [phone] Attestation: IPI Certification I certify that I am a D-H credentialed attending provider with admitting privileges and that the patient meets or has met medical necessity to require an inpatient IPI level of care meeting a minimumof two midnights or is on the [facility] inpatient only procedure list (status C) due to: Acetabular fx and hypernatremia Crista Aguilar MD 11/17/2017 Addendum: Called for patient falling from bed. Apparently was on edge of bed, lunged forward and fell on leftside. May have hit head. No focal bruising, swelling on scalp. Physics Tutor 5/5, strength in legs observed symmetric. Right pupil slightly smaller than left, reactive. Discussed with ortho as was due for films on 11/21 regardless. PA/lateral hip, Judet hip. I will also XR knee given hard to localize pain. Tried work number for Bettina but no answer. * Crista Aguilar MD - 11/16/2017 12:05 PM EDT Hospital Medicine Attending Daily Progress Note Admit Date: 09/02/2017 Hospital Day 75 days Active Hospital Problems Diagnosis ??? S/P ORIF left acetabulum fracture 09/04/2017 Dr. Lance ??? Postoperative anemia due to acute blood loss ??? Diabetes insipidus ??? Adrenal insufficiency ??? Panhypopituitarism ??? Seizure disorder ??? Hypothyroidism Resolved Hospital Problems Diagnosis Date Resolved No resolved problems to display. PMH Active Non-Hospital Problems Diagnosis ??? Insomnia ??? Blind ??? CVA (cerebral vascular accident) ??? Urinary incontinence Inpatient Medications: Scheduled ??? [START ON 11/17/2017] calcium carbonate 500 mg Oral Nightly ??? hydrocortisone 10 mg Oral Daily at Noon ??? senna-docusate 2 tablet Oral BID ??? HYDROmorphone 4 mg Oral TID AC ??? lidocaine 1 patch Transdermal Q24H And ??? lidocaine 1 patch Transdermal Q24H ??? methocarbamol 1,000 mg Oral TID ??? sodium chloride 0.9 % 5 mL Intravenous Q12H ??? melatonin 9 mg Oral Nightly ??? testosterone 5 g Transdermal Nightly ??? acetaminophen 1,000 mg Oral Q8H ??? HYDROmorphone 6 mg Oral Nightly ??? desmopressin 0.05 mg Oral 3 times per day ??? methyl salicylate-menthol Topical (Top) BID ??? cholecalciferol (Vitamin D3) 1,000 Units Oral Daily ??? hydrocortisone 20 mg Oral QAM ??? enoxaparin 40 mg Subcutaneous Nightly ??? levothyroxine 150 mcg Oral QAM ??? pantoprazole 40 mg Oral QAM AC ??? QUEtiapine 250 mg Oral Nightly ??? traZODone 50 mg Oral Nightly ??? zonisamide 200 mg Oral Nightly Continuous infusions: PRN: polyethylene glycol (MIRALAX)oral powder, HYDROmorphone, simethicone, sodium chloride 0.9 %, lidocaine, bisacodyl, senna-docusate, naphazoline-pheniramine Interval History: -Continues with sitter -Urinary retention -Na to 151 to 152 - encouraging free water given limited IV with behavior ROS: Agitated today and not able to complete ROS with mental status. Spoke with sitter who felt he was similar to last week when she was with him (yelling out). Difficult to discern but seems may be pain component and using dilaudid. No vomiting. Taking po well. Last BM 11/14. Physical Exam Vitals Range last 24 hrs Temperature Temp: [36.5 ??C (97.7 ??F)-36.7 ??C (98.1 ??F)] Heart Rate Heart Rate: [89-126] Blood Pressure BP: (126-146)/(68-92) Respiratory Rate Resp: [16-20] SpO2 SpO2: [95 %-96 %] Intake/Output Summary (Last 24 hours) at 11/16/17 1205 Last data filed at 11/16/17 0615 Gross per 24 hour Intake 4500 ml Output 1030 ml Net 3470 ml No data found. There is no height or weight on file to calculate BMI. General - Lying in bed, yelling out but calm for my exam, was wincing and grabbing his knee HEENT - Anicteric sclera CV - RRR Lungs - CTA bilaterally Abd - Soft, ND, +BS, non-tender to palpation Ext - Warm, no edema Studies reviewed in eDH. Remarkable for the following: LABS: Last 3 wbc, hgb, hct plt Recent Labs 11/14/17 0508 10/22/17 0502 10/05/17 0555 WBC 5.7 6.6 6.4 HGB 11.5* 12.9* 11.1* HCT 37.4* 40.5 38.6* PLATELET 274 339 281 Last 3 Lytes Recent Labs 11/15/17 1744 11/15/17 0515 11/14/17 0508 NA 152* 151* 143 K 3.8 4.0 3.5 CL 110* 112* 103 CO2 25 27 28 BUN 13 13 12 CREATININE 0.87 0.92 0.85 Last 3 LFTs Recent Labs 09/04/17 0358 AST 23 ALT 31 ALKPHOS 75 BILITOT 0.5 BILIDIR 0.1 Last Ca, Mg, Phos Recent Labs 11/15/17 1744 CALCIUM 9.3 Last 3 Coags No results for input(s): PT, INR, PTT in the last 168 hours. FSBG Trend No results for input(s): POCGLU in the last 72 hours. MICRO: No results for input(s): URINECULTURE in the last 720 hours. No results for input(s): GRAMSTAIN, BFCX, LOWERRESPCX, TISSUECX in the last 720 hours. No results for input(s): BLOODCX in the last 720 hours. ECG: No results for input(s): DIAGLINE, QTCCALC in the last 720 hours. VASCULAR: No results for input(s): VBTEXTRPT in the last 720 hours. IMAGING: XR Pelvis 09/04/2017: Improved alignment after left ischial and acetabular fracture ORIF without evidence of complication. ?? CT Pelvis MSK 09/03/2017: 1. ??Comminuted left acetabular fracture involving the medial wall with posttraumatic protrusio deformity. 2. ??The flat contour of the left femoral head is consistent with fracture. I do not however see displaced fracture typical the shear injury is seen in the setting. It is possible this base of the represent a compression of the femoral surface. 3. ??Pelvic hematoma. ?? XR Chest 09/03/2017: No acute cardiopulmonary pathology identified. ?? XR Knee Left 09/02/2017: Traction device is present. ?? XR pelvis 09/02/2017; Redemonstrated LEFT acetabular fracture extending into the ischium with acetabular protrusio, without appreciable change in alignment. ?? 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 Na elevated yesterday and persisted last night. Behavior limiting blood draw and will continue to attempt. Will be very important to see Na as will determine if needs further free water, additional DDAVP, but also at risk for hyponatremia with DI. Limited at this point to oral free water given behavior would limit ability for IV. Behavior may be environmental with baseline agitation. Ensure not retaining urine, not constipated. No fevers to suggest infection. 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 Plan: 1. Left acetabular fracture: -s/p operative repair on 09/04/2017 and orthopedics recommending NWB LLE through November -Continue current scheduled hydromorphone dose, including hydromorphone 6mg PO QHS, and scheduled APAP for pain control. Oral hydromorphone available PRN. - Continue methocarbamol 1g PO TID for musclespasms. -Follow-up scheduled for 11/21/2017, but may not be able to be discharged before then due to behaviors (rehabilitation) and inability to climb stairs (nursing home). 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 -Appreciate endocrinology recommendations. -Decrease hydrocortisone from 25/04/10 to 2010 per endocrine -Continue current dose of synthroid - appreciate endocrine regarding low T4. Stop morning tums and repeat T4 in one week (11/23). -Seizures managed with home zonesamide 200mg PO QHS per neurology. 3. Hypernatremia with DI: - 2.5L fluid restriction at home. Has been increased since then but not clear if consistently reaching those goals. Increased to 4.5L goal 11/15. Very unlikely would allow or maintain an IV without chemical restraint or physical restratint - feel risks of IV are not insignificant and trying oral route -Still awaiting labs today - Continue DDAVP 3 times daily - if Na remains high despite increased water then d/w endo additional DDAVP dose - Na increased to 151, 152 last night - awaiting labs today - At bedside during lab attempt - not willing to allow arm and his strength is limiting. Continue to try when more calm. 4. Fractured left lower molar: -Likely occurred with seizure and no evidence of acute infection. Extraction to occur in non-urgentmanner pending availability, but per dentistry, not likely anytime soon. ?? 5. Metabolic encephalopathy: -Agitation seems in part due to pain. 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 Continue to reassess. -Check bladder scan -Bowel regimen IV access: None Tubes/Drains: None DVT PPX: Lovenox Anticipated Disposition: Pending improved mobility Team Pager( Coverage 27/01): [phone] PCP: NAKIA Cifuentes [phone] Attestation: IPI Certification I certify that I am a D-H credentialed attending provider with admitting privileges and that the patient meets or has met medical necessity to require an inpatient IPI level of care meeting a minimumof two midnights or is on the CMS inpatient only procedure list (status C) due to: Acetabular fx and hypernatremia Crista Aguilar MD 11/16/2017 * Radha Valencia MD - 11/16/2017 11:14 AM EDT Endocrinology Follow Up Progress Note Patient not interviewed, was agitated and shouting out in bed. Physical Exam: BP 135/83 (BP Location (NBP): Left arm, Patient Position: Lying) Pulse 89 Temp 36.5 ??C (97.7 ??F) (Axillary) Resp 18 Ht 177.8 cm (5' 10) Wt 86.6 kg (191 lb) Comment: weight taken postoperatively using bed scale from unit SpO2 96% Not examined today Current Medications: ??? [START ON 11/17/2017] calcium carbonate (TUMS) chewable tablet 500 mg ??? hydrocortisone (CORTEF) tablet 10 mg ??? senna-docusate (PERICOLACE) 8.6-50 mg per tablet 2 tablet ??? polyethylene glycol (MIRALAX) packet 17 g ??? HYDROmorphone (DILAUDID) tablet 4 mg ??? lidocaine (LIDODERM) 5 % patch 1 patch AND lidocaine (LIDODERM) 5 %(700 mg/patch) Patch Removal ??? HYDROmorphone (DILAUDID) tablet 4 mg ??? methocarbamol (ROBAXIN) tablet 1,000 mg ??? simethicone (MYLICON) chewable tablet 40 mg ??? sodium chloride 0.9 % flush 5 mL ??? sodium chloride 0.9 % flush 5-20 mL ??? lidocaine (XYLOCAINE) 10 mg/mL (1 %) injection 3 mg ??? melatonin tablet 9 mg ??? testosterone (ANDROGEL) 1 % (25 mg/2.5 g) gel 5 g ??? acetaminophen (TYLENOL) tablet 1,000 mg ??? HYDROmorphone (DILAUDID) tablet 6 mg ??? desmopressin (DDAVP) tablet 0.05 mg ??? bisacodyl (DULCOLAX) suppository 10 mg ??? methyl salicylate-menthol (BENGAY) 15-10 % cream ??? cholecalciferol (Vitamin D3) tablet 1,000 Units ??? hydrocortisone (CORTEF) tablet 20 mg ??? enoxaparin (LOVENOX) injection 40 mg ??? senna-docusate (PERICOLACE) 8.6-50 mg per tablet 2 tablet ??? levothyroxine (SYNTHROID) tablet 150 mcg ??? pantoprazole (PROTONIX) tablet 40 mg ??? QUEtiapine (SEROquel) tablet 250 mg ??? traZODone (DESYREL) tablet 50 mg ??? naphazoline-pheniramine (NAPHCON-A) 0.025-0.3 % ophthalmic solution 1 drop ??? zonisamide (ZONEGRAN) capsule 200 mg Labs: Recent Results (from the past 24 hour(s)) Basic Metabolic Panel (non-fasting) Result Value Ref Range Glucose Lvl 109 65 - 199 mg/dL BUN 13 10 - 20 mg/dL Creatinine 0.87 0.80 - 1.50 mg/dL Sodium 152 (H) 135 - 145 mmol/L Potassium 3.8 3.5 - 5.0 mmol/L Chloride 110 (H) 98 - 107 mmol/L CO2 25 22 - 31 mmol/L Anion Gap 17 (H) 5 - 15 mmol/L Calcium 9.3 8.5 - 10.5 mg/dL Estimated GFR >60 >=60 Osmolality, urine, random Result Value Ref Range U Osmolality 493 50 - 1200 mOsm/kg Electrolytes, urine, random Result Value Ref Range U Sodium 98 mmol/L U Potassium 49 mmol/L U Chloride 75 mmol/L Specific [place], Urine Result Value Ref Range Spec [place] UA 1.025 1.002 - 1.030 Assessment: 27 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 He has been acutely hypernatremic in the last 24 hours, his DDAVP dosing has not changed from 0.05mg TID and no doses have been missed. Primary team as appropriately liberalized his free water to 4.5L which is what his current water deficit is. He is due for a recheck of his Na today. Ideally, we would like to correct his hypernatremia within the 48 hour window if possible. However this patient has been challenging to maintain an IV access in which is why we are encouraging PO free water intakefirst. He was found to have a free T4 that was low at 0.71 yesterday. His home dose of LT4 150mcg po dailyhas not changed, this is more than his weight based dosing. When he first came in Aug, this dose was sufficient for him so we are hesitant to increase this dose even further. We think that we can start by discontinuing his AM calcium carbonate - which may be causing some malabsorption of his LT4. We would recommend rechecking in about 1 week. Additionally, since he had a major fracture resulting from a fall - we think that perhaps we can back down on his maintenance hydrocortisone dose from 20/10 to 20mg po AM and 10mg po qafternoon (~2pm). We have spoken to primary team extensively about the above recommendations. I have discussed this case with the attending physician, Dr. Coleman, who was fully involved in the formulation of the plan mentioned above. Radha Valencia MD Endocrinology Fellow, PGY-5 11/16/2017 Associated attestation - Neo Coleman DO - 11/16/2017 11:31 AM EDT I have reviewed Dr Valencia's history and I agree with the details as written. Physical exam was deferred as patient was visibly agitated. The assessment and plan were formulated in discussion with me and I agree with them as documented. Neo Coleman DO, MS Engagement Engineerintensive care specialist Section of Endocrinology [facility] * Crista Aguilar MD - 11/15/2017 10:30 AM EDT Hospital Medicine Attending Daily Progress Note Admit Date: 09/02/2017 Hospital Day 74 days Active Hospital Problems Diagnosis ??? S/P ORIF left acetabulum fracture 09/04/2017 Dr. Lance ??? Postoperative anemia due to acute blood loss ??? Diabetes insipidus ??? Adrenal insufficiency ??? Panhypopituitarism ??? Seizure disorder ??? Hypothyroidism Resolved Hospital Problems Diagnosis Date Resolved No resolved problems to display. PMH Active Non-Hospital Problems Diagnosis ??? Insomnia ??? Blind ??? CVA (cerebral vascular accident) ??? Urinary incontinence Inpatient Medications: Scheduled ??? senna-docusate 2 tablet Oral BID ??? HYDROmorphone 4 mg Oral TID AC ??? lidocaine 1 patch Transdermal Q24H And ??? lidocaine 1 patch Transdermal Q24H ??? methocarbamol 1,000 mg Oral TID ??? sodium chloride 0.9 % 5 mL Intravenous Q12H ??? melatonin 9 mg Oral Nightly ??? testosterone 5 g Transdermal Nightly ??? acetaminophen 1,000 mg Oral Q8H ??? HYDROmorphone 6 mg Oral Nightly ??? desmopressin 0.05 mg Oral 3 times per day ??? methyl salicylate-menthol Topical (Top) BID ??? calcium carbonate 500 mg Oral BID ??? cholecalciferol (Vitamin D3) 1,000 Units Oral Daily ??? hydrocortisone 20 mg Oral QAM ??? hydrocortisone 10 mg Oral Daily at Noon ??? hydrocortisone 10 mg Oral Q24H ??? enoxaparin 40 mg Subcutaneous Nightly ??? levothyroxine 150 mcg Oral QAM ??? pantoprazole 40 mg Oral QAM AC ??? QUEtiapine 250 mg Oral Nightly ??? traZODone 50 mg Oral Nightly ??? zonisamide 200 mg Oral Nightly Continuous infusions: PRN: polyethylene glycol (MIRALAX)oral powder, HYDROmorphone, simethicone, sodium chloride 0.9 %, lidocaine, bisacodyl, senna-docusate, naphazoline-pheniramine Interval History: -Continues with sitter -No acute events ROS: Spoke with sitter. Feels his behavior is at baseline. States that is good about drinking waterprovided. At home does around 110oz, increased to 133oz here (for 4L) - but has not consumed that amount. They record intake at his nursing home. Physical Exam Vitals Range last 24 hrs Temperature Temp: [37 ??C (98.6 ??F)] Heart Rate Heart Rate: [119] Blood Pressure BP: (152)/(76) Respiratory Rate Resp: [20] SpO2 SpO2: [98 %] Intake/Output Summary (Last 24 hours) at 11/15/17 1030 Last data filed at 11/15/17 0600 Gross per 24 hour Intake 1050 ml Output 0 ml Net 1050 ml No data found. There is no height or weight on file to calculate BMI. General - Lying in bed, yelling out but calmed with caregiver HEENT - Anicteric sclera CV - RRR Lungs - CTA bilaterally Abd - Soft, ND, +BS, non-tender to palpation Ext - Warm, no edema Studies reviewed in eDH. Remarkable for the following: LABS: Last 3 wbc, hgb, hct plt Recent Labs 11/14/17 0508 10/22/17 0502 10/05/17 0555 WBC 5.7 6.6 6.4 HGB 11.5* 12.9* 11.1* HCT 37.4* 40.5 38.6* PLATELET 274 339 281 Last 3 Lytes Recent Labs 11/15/17 0515 11/14/17 0508 11/13/17 1916 11/13/17 0633 NA 151* 143 142 148* K 4.0 3.5 -- Not Perf CL 112* 103 -- 109* CO2 27 28 -- Not Perf BUN 13 12 -- 11 CREATININE 0.92 0.85 -- 0.77* Last 3 LFTs Recent Labs 09/04/17 0358 AST 23 ALT 31 ALKPHOS 75 BILITOT 0.5 BILIDIR 0.1 Last Ca, Mg, Phos Recent Labs 11/15/17 0515 CALCIUM 9.4 Last 3 Coags No results for input(s): PT, INR, PTT in the last 168 hours. FSBG Trend No results for input(s): POCGLU in the last 72 hours. MICRO: No results for input(s): URINECULTURE in the last 720 hours. No results for input(s): GRAMSTAIN, BFCX, LOWERRESPCX, TISSUECX in the last 720 hours. No results for input(s): BLOODCX in the last 720 hours. ECG: No results for input(s): DIAGLINE, QTCCALC in the last 720 hours. VASCULAR: No results for input(s): VBTEXTRPT in the last 720 hours. IMAGING: XR Pelvis 09/04/2017: Improved alignment after left ischial and acetabular fracture ORIF without evidence of complication. ?? CT Pelvis MSK 09/03/2017: 1. ??Comminuted left acetabular fracture involving the medial wall with posttraumatic protrusio deformity. 2. ??The flat contour of the left femoral head is consistent with fracture. I do not however see displaced fracture typical the shear injury is seen in the setting. It is possible this base of the represent a compression of the femoral surface. 3. ??Pelvic hematoma. ?? XR Chest 09/03/2017: No acute cardiopulmonary pathology identified. ?? XR Knee Left 09/02/2017: Traction device is present. ?? XR pelvis 09/02/2017; Redemonstrated LEFT acetabular fracture extending into the ischium with acetabular protrusio, without appreciable change in alignment. ?? XR Knee Left 09/02/2017: Traction pin traverses the distal femur Assessment: 27 y/o with panhypopituitarism due to prior pituitary tumor resection complicated by hemorrhage and CVA with cognitive impairment and seizures, with left acetabular fracture with operative repair on 09/04, currently NWB which limites ability to his prior residence, optimizing pain controland behavior. Na elevated today - encourage free water and liberalizing free water. Discussed with caregiver and nurse. Per caregiver, he would not maintain an IV and would be agitating to place. They report he takes water well. Will liberalize and encourage free water and maintain current DDAVP - repeat Na this evening. If requires D5W may require restraints or chemical sedation to maintain IV access. Plan: 1. Left acetabular fracture: -s/p operative repair on 09/04/2017 and orthopedics recommending NWB LLE through November -Continue current scheduled hydromorphone dose, including hydromorphone 6mg PO QHS, and scheduled APAP for pain control. Oral hydromorphone available PRN. - Continue methocarbamol 1g PO TID for musclespasms. -Follow-up scheduled for 11/21/2017, but may not be able to be discharged before then due to behaviors (rehabilitation) and inability to climb stairs (nursing home). 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 -Appreciate endocrinology recommendations and encourage PO intake to 3.2L daily. -Continue hormone replacement with hydrocortisone and levothyroxine orally and AndroGel transdermally. -Seizures managed with home zonesamide 200mg PO QHS per neurology. 3. Hypernatremia with DI: - 2.5L fluid restriction at home and when last seen by Teodora early October. Has been increased since then but not clear if reaching those goals. Will increase to 4.5L goal - discussed with caregiver at bedside who states he can drink that amount. Feel risks of IV are not insignificant and will try oral liquids first. - Continue DDAVP 3 times daily with hold parameters - Na increased to 151 today - discussed with endocrine. Keep DDAVP dosing the same. Free water deficit to 145 2L - encouraging po liquids as above and recheck this evening 4. Fractured left lower molar: -Likely occurred with seizure and no evidence of acute infection. Extraction to occur in non-urgentmanner pending availability, but per dentistry, not likely anytime soon. ?? 5. Metabolic encephalopathy: -Agitation in part due to pain. -Stopped lorazepam and haloperidol as these medications continued to be given prior to hydromorphone as preferred. Continue to reassess. IV access: None Tubes/Drains: None DVT PPX: Lovenox Anticipated Disposition: Pending improved mobility Team Pager( Coverage 27/01): #[phone] PCP: NAKIA Cifuentes [phone] Attestation: IPI Certification I certify that I am a D-H credentialed attending provider with admitting privileges and that the patient meets or has met medical necessity to require an inpatient IPI level of care meeting a minimumof two midnights or is on the CMS inpatient only procedure list (status C) due to: Acetabular fx and hypernatremia Crista Aguilar MD 11/15/2017 * Yossi Morin DO - 11/14/2017 2:52 PM EDT HOSPITAL MEDICINE ATTENDING DAILY PROGRESS NOTE Patient: Miguel Angel Mason, 1990, [id number] Physician: Yossi Morin DO, Pager: [phone], Hospital Medicine Service Admit Date: 09/02/2017 Date of Service: November 14, 2017 LOS: 73 PCP: NAKIA Cifuentes, SUBJECTIVE: Today yesterday with caregiver and slept well overnight. Still appears to have some pain in his hip. OBJECTIVE: Last value Range last 24 hrs Temp: 37 ??C (98.6 ??F) Temp: [36 ??C (96.8 ??F)-37 ??C (98.6 ??F)] Heart Rate: (!) 119 Heart Rate: [89-119] BP: 152/76 BP: (133-152)/(76-83) Resp: 20 Resp: [20] SpO2: 98 % SpO2: [98 %] I/O last 1 completed shift: In: 480 [P.O.:480] Out: 550 [Urine:550] Intake/Output Summary (Last 24 hours) at 11/14/17 1452 Last data filed at 11/14/17 0800 Gross per 24 hour Intake 1460 ml Output 550 ml Net 910 ml No data found. There is no height or weight on file to calculate BMI. GEN: sleepy, alert, NAD HEENT: PERRLA, EOMI, MMM, trachea midline, no JVD CHEST: CTA B/L, no W/R/R, no accessory muscle use HEART: RRR, S1S2, no M/R/G, no LE edema ABD/PEL: soft, NT, ND, +BS EXT: no clubbing or cyanosis, no erythema, L hip unchanged PSYCH/NEURO: verbal and answering easy questions slowly LABS/IMAGING: Recent Labs 11/14/17 0508 11/13/17 1916 11/13/17 0633 NA 143 142 148* K 3.5 -- Not Perf CL 103 -- 109* CO2 28 -- Not Perf BUN 12 -- 11 CREATININE 0.85 -- 0.77* CALCIUM 9.2 -- 8.8 MAGNESIUM 0.84 -- -- Recent Labs 11/14/17 0508 WBC 5.7 HGB 11.5* HCT 37.4* MCV 81.1* PLATELET 274 No results for input(s): PT, INR, PTT in the last 72 hours. ASSESSMENT/PLAN: Active Hospital Problems Diagnosis ??? S/P ORIF left acetabulum fracture 09/04/2017 Dr. Lance ??? Postoperative anemia due to acute blood loss ??? Diabetes insipidus ??? Adrenal insufficiency ??? Panhypopituitarism ??? Seizure disorder ??? Hypothyroidism Resolved Hospital Problems Diagnosis Date Resolved No resolved problems to display. 1. L acetabular fracture: s/p operative repair on 09/04/2017 and orthopedics recommending NWB LLE through November. Continue current scheduled hydromorphone dose, including hydromorphone 6mg PO QHS, and scheduled APAP for pain control. Oral hydromorphone available PRN. Continue methocarbamol 1g PO TID formuscle spasms. Follow-up scheduled for 11/21/2017, but may not be able to be discharged before then due to behaviors (rehabilitation) and inability to climb stairs (nursing home). Discussed with orthopedics due to increasing pain or cramps in the last few days. Appreciate their assistance and evaluation. 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 Appreciate endocrinology recommendations and encourage PO intake to 3.2L daily. Continue hormone replacement with hydrocortisone and levothyroxine orally and AndroGel transdermally. Seizuresmanaged with home zonesamide 200mg PO QHS per neurology. Na stable. Given recent changes in behavior, will recheck Na tomorrow am. 3. Hypernatremia: Better with increased fluid restriction. Continue DDAVP 3 times daily with hold parameters. Recheck in am. 4. Fractured left lower molar: Likely occurred with seizure and no evidence of acute infection. Extraction to occur in non-urgent manner pending availability, but per dentistry, not likely anytime soon. 5. Metabolic encephalopathy: Agitation likely due to pain. Will stop lorazepam and haloperidol as these medications continue to be given prior to hydromorphone as preferred. 6. DVT Prophylaxis: enoxaparin SQ CODE STATUS: FULL RESOLVED PROBLEMS: NONE Disposition: Rehabilitation not planned until able to bear weight on LLE. If not able to climb stairs, will need to look for alternative placement in a nursing home. IPI Certification I certify that I am a D-H credentialed attending provider with admitting privileges and that the patient meets or has met medical necessity to require an inpatient IPI level of care meeting a minimumof two midnights or is on the [facility] inpatient only procedure list (status C) due to: the patient has met Inpatient IPI criteria and is awaiting rehabilitation or half-way facility placement withactive referrals in process MEDICATIONS: SCHEDULED ??? senna-docusate 2 tablet Oral BID ??? HYDROmorphone 4 mg Oral TID AC ??? lidocaine 1 patch Transdermal Q24H And ??? lidocaine 1 patch Transdermal Q24H ??? methocarbamol 1,000 mg Oral TID ??? sodium chloride 0.9 % 5 mL Intravenous Q12H ??? melatonin 9 mg Oral Nightly ??? testosterone 5 g Transdermal Nightly ??? acetaminophen 1,000 mg Oral Q8H ??? HYDROmorphone 6 mg Oral Nightly ??? desmopressin 0.05 mg Oral 3 times per day ??? methyl salicylate-menthol Topical (Top) BID ??? calcium carbonate 500 mg Oral BID ??? cholecalciferol (Vitamin D3) 1,000 Units Oral Daily ??? hydrocortisone 20 mg Oral QAM ??? hydrocortisone 10 mg Oral Daily at Noon ??? hydrocortisone 10 mg Oral Q24H ??? enoxaparin 40 mg Subcutaneous Nightly ??? levothyroxine 150 mcg Oral QAM ??? pantoprazole 40 mg Oral QAM AC ??? QUEtiapine 250 mg Oral Nightly ??? traZODone 50 mg Oral Nightly ??? zonisamide 200 mg Oral Nightly PRN polyethylene glycol (MIRALAX)oral powder 17 g Daily PRN HYDROmorphone 4 mg Q4H PRN simethicone 40 mg Q6H PRN sodium chloride 0.9 % 5-20 mL Q1 Min PRN lidocaine 0.3 mL Once PRN bisacodyl 10 mg Daily PRN senna-docusate 2 tablet BID PRN naphazoline-pheniramine 1 drop TID PRN Yossi Morin DO [id number] Hospitalist 11/14/2017 2:52 PM * Celine Power MD - 11/14/2017 12:48 PM EDT Paged by primary team for patient with increasing pain in left hip over past 2 days. On exam, patient alert and able to respond to questions. Although he is not always reliable with reporting pain, he says the hip is awesome. He is moving the extremity spontaneously. Able to passively flex to 90 degrees and does not show signs of pain with internal and external rotation at hip. Foot wwp. Caregiver in room reports that he does not appear to be complaining of pain in the hip but she thinks his somewhat agitation is related to wanting food. Physical exam today is reassuring for good ROM. Given unreliable nature of his exam for pain though would recommend continued monitoring. If exam changes or pain appears to increase, it is reasonable to consider XR. Celine Power MD #[id number] * Yossi Morin DO - 11/13/2017 1:36 PM EDT [facility] MED[facility] ATTENDING DAILY PROGRESS NOTE Patient: Miguel Angel Mason, 1990, [id number] Physician: Yossi Morin DO, Pager: [phone], [facility] Medicine Service Admit Date: 09/02/2017 Date of Service: November 13, 2017 LOS: 72 PCP: NAKIA Cifuentes, SUBJECTIVE: Didn't sleep much overnight. Appears more comfortable today. OBJECTIVE: Last value Range last 24 hrs Temp: 37 ??C (98.6 ??F) Temp: [37 ??C (98.6 ??F)] Heart Rate: (!) 110 Heart Rate: [107-110] BP: (!) 144/98 BP: (140-144)/(74-98) Resp: 20 Resp: [20] SpO2: 96 % SpO2: [96 %] Intake/Output Summary (Last 24 hours) at 11/13/17 1336 Last data filed at 11/13/17 1300 Gross per 24 hour Intake 2040 ml Output 0 ml Net 2040 ml No data found. There is no height or weight on file to calculate BMI. GEN: sleepy, alert, NAD HEENT: PERRLA, EOMI, MMM, trachea midline, no JVD CHEST: CTA B/L, no W/R/R, no accessory muscle use HEART: RRR, S1S2, no M/R/G, no LE edema ABD/PEL: soft, NT, ND, +BS EXT: no clubbing or cyanosis, no erythema PSYCH/NEURO: verbal and answering easy questions slowly LABS/IMAGING: Recent Labs 11/13/17 0633 NA 148* K Not Perf CL 109* CO2 Not Perf BUN 11 CREATININE 0.77* CALCIUM 8.8 No results for input(s): WBC, HGB, HCT, MCV, PLATELET in the last 72 hours. No results for input(s): PT, INR, PTT in the last 72 hours. ASSESSMENT/PLAN: Active Hospital Problems Diagnosis ??? S/P ORIF left acetabulum fracture 09/04/2017 Dr. Lance ??? Postoperative anemia due to acute blood loss ??? Diabetes insipidus ??? Adrenal insufficiency ??? Panhypopituitarism ??? Seizure disorder ??? Hypothyroidism Resolved Hospital Problems Diagnosis Date Resolved No resolved problems to display. 1. L acetabular fracture: s/p operative repair on 09/04/2017 and orthopedics recommending NWB LLE through November. Continue current scheduled hydromorphone dose, including hydromorphone 6mg PO QHS, and scheduled APAP for pain control. Oral hydromorphone available PRN. Continue methocarbamol 1g PO TID formuscle spasms. Follow-up scheduled for 11/21/2017, but may not be able to be discharged before then due to behaviors (rehabilitation) and inability to climb stairs (nursing home). 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 Appreciate endocrinology recommendations and encourage PO intake to 3.2L daily. Continue hormone replacement with hydrocortisone and levothyroxine orally and AndroGel transdermally. Seizuresmanaged with home zonesamide 200mg PO QHS per neurology. Na stable. Given recent changes in behavior, will recheck Na tomorrow am. 3. Hypernatremia: Rising over the last 3 days while on consistent DDAVP 3 times daily with hold parameters. Discussed with endocrinology again today and recommending increased free water ingestion. Will recheck this evening. If not falling, will need IV and D5W. 4. Fractured left lower molar: Likely occurred with seizure and no evidence of acute infection. Extraction to occur in non-urgent manner pending availability, but per dentistry, not likely anytime soon. 5. Metabolic encephalopathy: Agitation likely due to pain. Will stop lorazepam and haloperidol as these medications continue to be given prior to hydromorphone as preferred. 6. DVT Prophylaxis: enoxaparin SQ CODE STATUS: FULL RESOLVED PROBLEMS: Disposition: Rehabilitation not planned until able to bear weight on LLE. If not able to climb stairs, will need to look for alternative placement in a nursing home. IPI Certification I certify that I am a D-H credentialed attending provider with admitting privileges and that the patient meets or has met medical necessity to require an inpatient IPI level of care meeting a minimumof two midnights or is on the [facility] inpatient only procedure list (status C) due to: the patient has met Inpatient IPI criteria and is awaiting rehabilitation or half-way facility placement withactive referrals in process MEDICATIONS: SCHEDULED ??? senna-docusate 2 tablet Oral BID ??? HYDROmorphone 4 mg Oral TID AC ??? lidocaine 1 patch Transdermal Q24H And ??? lidocaine 1 patch Transdermal Q24H ??? methocarbamol 1,000 mg Oral TID ??? sodium chloride 0.9 % 5 mL Intravenous Q12H ??? melatonin 9 mg Oral Nightly ??? testosterone 5 g Transdermal Nightly ??? acetaminophen 1,000 mg Oral Q8H ??? HYDROmorphone 6 mg Oral Nightly ??? desmopressin 0.05 mg Oral 3 times per day ??? methyl salicylate-menthol Topical (Top) BID ??? calcium carbonate 500 mg Oral BID ??? cholecalciferol (Vitamin D3) 1,000 Units Oral Daily ??? hydrocortisone 20 mg Oral QAM ??? hydrocortisone 10 mg Oral Daily at Noon ??? hydrocortisone 10 mg Oral Q24H ??? enoxaparin 40 mg Subcutaneous Nightly ??? levothyroxine 150 mcg Oral QAM ??? pantoprazole 40 mg Oral QAM AC ??? QUEtiapine 250 mg Oral Nightly ??? traZODone 50 mg Oral Nightly ??? zonisamide 200 mg Oral Nightly PRN polyethylene glycol (MIRALAX)oral powder 17 g Daily PRN HYDROmorphone 4 mg Q4H PRN simethicone 40 mg Q6H PRN sodium chloride 0.9 % 5-20 mL Q1 Min PRN lidocaine 0.3 mL Once PRN bisacodyl 10 mg Daily PRN senna-docusate 2 tablet BID PRN naphazoline-pheniramine 1 drop TID PRN Yossi Morin DO 2700 Hospitalist 11/13/2017 1:36 PM * Debbie Keller DT - 11/13/2017 1:22 PM EDT Nutrition Services - Follow-up Note Miguel Angel Mason : 1990 AGE: 27 y.o. Patient Active Problem List Diagnosis Date Noted ??? *Hospital-S/P ORIF left acetabulum fracture 09/04/2017 Dr. Lance 09/02/2017 ??? Hospital-Postoperative anemia due to acute blood loss 09/04/2017 ??? Hospital-Diabetes insipidus 09/03/2017 ??? Hospital-Adrenal insufficiency 09/03/2017 ??? 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 Hospital-Seizure disorder 09/03/2017 ??? Insomnia 09/03/2017 ??? Blind 09/03/2017 ??? CVA (cerebral vascular accident) 09/03/2017 ??? Urinary incontinence 09/03/2017 ??? Hospital-Hypothyroidism 09/03/2017 Reason for Nutrition Intervention: Follow-up Diet Order: Regular Appetite: Great- per nursing Food allergies: NKFA Chewing/Swallowing difficulty: none noted- per nursing Ht Readings from Last 3 Encounters: 09/07/17 177.8 cm (5' 10) Wt Readings from Last 3 Encounters: 09/04/17 86.6 kg (191 lb) There is no height or weight on file to calculate BMI. Vitamins/Minerals: Vitamin D3, Tums noted. Assessment: Patient seen for nutrition follow up. Land Agent able to speak with nursing on pt's nutritional care. Nursing reported a great appetite stating, pt is eating everything. Only thing he doesn't eat is tomatoes. Nursing noted no difficulty chewing or swallowing. He is tolerating current diet without nausea or vomiting. Nursing stated pt consumed 100% PO intake of breakfast consisting of apple juice, melon, banana, hard boiled egg, multi grain pancake w/ syrup and 1% milk. Lunch consisting of vegetable sticks w/ ranch dressing, fruit cup, cheeseburger, macaroni & cheese, apple, brownie, deni amara and 1% milk. Nursing notes documenting 100% PO intake + a pudding on 11/11, two 25% + 75% PO intakes on 11/10, and two 100% PO intakes on 11/09. Nursing had no nutritional concerns at thistime. Please contact Food and Nutrition services with any questions/ requests that may arise. Nutrition will continue to follow. Nutrition Plan: Continue current diet. Dietary to send menus daily. Cut up all foods. Recommend Daily Multi Vitamins. Night snacks ordered- Carrot sticks, celery sticks, applesauce, chocolate pudding. Encourage good po intake. Monitor weight. Support and encouragement provided. Nutrition services to follow thru hospital course unless consulted in the interim. ADAM Kaur * Celine Power MD - 11/13/2017 9:01 AM EDT Orthopaedic Surgery Progress Note Surgery/Issue: ORIF left acetabulum Attending: Dr. Lance Date of surgery: 09/04/2017 Subjective/Events: - JAMAL over the past few days. - In room with caregiver and appears more calm and comfortable currently. - Shakes head to to pain Objcetive: Temp: [36.8 ??C (98.2 ??F)-37 ??C (98.6 ??F)] Heart Rate: [107] Resp: [20] BP: (140-151)/(74-96) Intake/Output Summary (Last 24 hours) at 11/13/17 0931 Last data filed at 11/12/17 1500 Gross per 24 hour Intake 2000 ml Output 0 ml Net 2000 ml Lab Results Component Value Date NA 148 (H) 11/13/2017 K Not Perf 11/13/2017 CL 109 (H) 11/13/2017 CO2 Not Perf 11/13/2017 BUN 11 11/13/2017 CREATININE 0.77 (L) 11/13/2017 GLUCOSE 101 11/13/2017 GLUCFASTING 82 10/28/2017 CALCIUM 8.8 11/13/2017 Lab Results Component Value Date WBC 6.6 10/22/2017 HGB 12.9 (L) 10/22/2017 HCT 40.5 10/22/2017 MCV 80.0 (L) 10/22/2017 PLATELET 339 10/22/2017 Lab Results Component Value Date INR 1.1 09/03/2017 Exam: General: comfortable, resting in bed with sheet covering body; resting comfortably this morning. CV: RR assessed peripherally Resp: no increased work of breathing LLE: Anterior pelvic and left lower abdominal incisions c/d/i, no erythema or edema. Abdomen soft, non tender, no ecchymoses Unable to assess motor/sensory formally but moving all 4 extremities in the bed. SILT distally Palpable DP/PT Imaging: XR pelvis IMPRESSION Unchanged osseous alignment. Difficult to identify interval callus formation/healing. No equipment complication seen. XR Judet IMPRESSION Stable bony alignment. Stable position internal fixation device. No appreciable overlying sclerosisor bony callus. ?? A/P: 27 y.o. male s/p ORIF left acetabular fx on 09/04/17. Progressing well post operatively. Furthercare per medicine, dental, and / for placement. He had his 6 week follow on 10/21 with unchangedimages of his injuries, v. early signs of healing noted. Today he is 10 weeks from surgery and his wound is well healed. Weight bearing status remains NWB LLE until mid to late November. Continue OOB withPT/OT and nursing. Activity: NWB LLE, OK for stand pivot transfer on right leg only DVT prophylaxis: lovenox Closure: carisa are removed, incisions show good healing Dressings: may leave open to air now Follow up: to be re-tasked at discharge - please page #[phone] prior to discharge so follow up can be arranged. If remains inpatient, will plan on repeat imaging ~11/18 to assess interval healing (will be almost 11 weeks form operation) Celine Power MD, PGY-1 Orthopaedic Surgery Pager #: [phone] Future Appointments Date Time Provider Department Center 11/21/2017 10:45 AM [facility] DX ROOM 2 Xray [facility] 11/21/2017 11:40 AM Amy Lance MD [facility] Associated attestation - Amy Lance MD - 11/15/2017 7:05 AM EDT Patient seen and examined. Agree with resident note. Plan for 10 week follow-up this week. Mandy Lance MD Department of Orthopaedics 11/15/17 * Yossi Morin DO - 11/12/2017 1:10 PM EDT [facility] ATTENDING DAILY PROGRESS NOTE Patient: Miguel Angel Mason, 1990, [id number] Physician: Yossi Morin DO, Pager: [phone], Hospital Medicine Service Admit Date: 09/02/2017 Date of Service: November 12, 2017 LOS: 71 PCP: NAKIA Cifuentes, SUBJECTIVE: Good night last night after difficult day. Worked with PT/OT. Pain seems more prevalentcurrently. OBJECTIVE: Last value Range last 24 hrs Temp: 36.6 ??C (97.8 ??F) Temp: [36.6 ??C (97.8 ??F)] Heart Rate: 86 Heart Rate: [86] BP: 135/82 BP: (135)/(82) Resp: 20 Resp: [20] SpO2: 96 % SpO2: [96 %] Intake/Output Summary (Last 24 hours) at 11/12/17 1310 Last data filed at 11/12/17 0744 Gross per 24 hour Intake 1438 ml Output 0 ml Net 1438 ml No data found. There is no height or weight on file to calculate BMI. GEN: sleepy, alert, NAD HEENT: PERRLA, EOMI, MMM, trachea midline, no JVD CHEST: CTA B/L, no W/R/R, no accessory muscle use HEART: RRR, S1S2, no M/R/G, no LE edema ABD/PEL: soft, NT, ND, +BS EXT: no clubbing or cyanosis, no erythema PSYCH/NEURO: verbal and answering easy questions slowly LABS/IMAGING: Recent Labs 11/10/17 0736 11/10/17 0624 11/09/17 2041 NA 145 Not Perf 145 K 3.7 Not Perf Not Perf CL 99 98 104 CO2 26 27 23 BUN 18 CREATININE 0.87 Not Perf 1.01 CALCIUM 8.9 8.8 8.9 No results for input(s): WBC, HGB, HCT, MCV, PLATELET in the last 72 hours. No results for input(s): PT, INR, PTT in the last 72 hours. ASSESSMENT/PLAN: Active Hospital Problems Diagnosis ??? S/P ORIF left acetabulum fracture 09/04/2017 Dr. Lance ??? Postoperative anemia due to acute blood loss ??? Diabetes insipidus ??? Adrenal insufficiency ??? Panhypopituitarism ??? Seizure disorder ??? Hypothyroidism Resolved Hospital Problems Diagnosis Date Resolved No resolved problems to display. 1. L acetabular fracture: s/p operative repair on 09/04/2017 and orthopedics recommending NWB LLE through November. Standing hydromorphone increased today. Continue hydromorphone 6mg PO QHS and scheduled APAP for pain control. Oral hydromorphone available PRN. Continue methocarbamol 1g PO TID for muscle spasms. Follow-up scheduled for 11/21/2017, but may not be able to be discharged before then due to behaviors (rehabilitation) and inability to climb stairs (nursing home). 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 Appreciate endocrinology recommendations and encourage PO intake to greater than 3.2L daily. Continue hormone replacement with hydrocortisone and levothyroxine orally and AndroGel transdermally. Seizures managed with home zonesamide 200mg PO QHS per neurology. Na stable. Given recent changes in behavior, will recheck Na tomorrow am. 3. Fractured left lower molar: Likely occurred with seizure and no evidence of acute infection. Extraction to occur in non-urgent manner pending availability, but per dentistry, not likely anytime soon. 4. Metabolic encephalopathy: Agitation likely due to pain. Will stop lorazepam and haloperidol as these medications continue to be given prior to hydromorphone as preferred. 5. DVT Prophylaxis: enoxaparin SQ CODE STATUS: FULL RESOLVED PROBLEMS: 1. Hypernatremia: Stable on on DDAVP 3 times daily with hold parameters per endocrinology recommendations. Follow weekly. Disposition: Rehabilitation not planned until able to bear weight on LLE. If not able to climb stairs, will need to look for alternative placement in a nursing home. IPI Certification I certify that I am a D-H credentialed attending provider with admitting privileges and that the patient meets or has met medical necessity to require an inpatient IPI level of care meeting a minimumof two midnights or is on the [facility] inpatient only procedure list (status C) due to: the patient has met Inpatient IPI criteria and is awaiting rehabilitation or half-way facility placement withactive referrals in process MEDICATIONS: SCHEDULED ??? senna-docusate 2 tablet Oral BID ??? HYDROmorphone 4 mg Oral TID AC ??? methocarbamol 1,000 mg Oral TID ??? sodium chloride 0.9 % 5 mL Intravenous Q12H ??? melatonin 9 mg Oral Nightly ??? testosterone 5 g Transdermal Nightly ??? acetaminophen 1,000 mg Oral Q8H ??? HYDROmorphone 6 mg Oral Nightly ??? desmopressin 0.05 mg Oral 3 times per day ??? methyl salicylate-menthol Topical (Top) BID ??? calcium carbonate 500 mg Oral BID ??? cholecalciferol (Vitamin D3) 1,000 Units Oral Daily ??? hydrocortisone 20 mg Oral QAM ??? hydrocortisone 10 mg Oral Daily at Noon ??? hydrocortisone 10 mg Oral Q24H ??? enoxaparin 40 mg Subcutaneous Nightly ??? levothyroxine 150 mcg Oral QAM ??? pantoprazole 40 mg Oral QAM AC ??? QUEtiapine 250 mg Oral Nightly ??? traZODone 50 mg Oral Nightly ??? zonisamide 200 mg Oral Nightly PRN polyethylene glycol (MIRALAX)oral powder 17 g Daily PRN HYDROmorphone 4 mg Q4H PRN simethicone 40 mg Q6H PRN sodium chloride 0.9 % 5-20 mL Q1 Min PRN lidocaine 0.3 mL Once PRN bisacodyl 10 mg Daily PRN senna-docusate 2 tablet BID PRN naphazoline-pheniramine 1 drop TID PRN Yossi Morin DO 6734 Hospitalist 11/12/2017 1:10 PM * Noel Martinez OTA - 11/12/2017 11:44 AM EDT Occupational Therapy note: Pt not appropriate for skilled OT at this time due to agitation. Will follow up when patient is more appropriate. Noel HORNE Pager:[phone] Occupational Therapy * Tricia Gerber RN - 11/11/2017 4:21 PM EDT Case reviewed in eDH and with interdisciplinary team. Per MD patient is medically ready for discharge. Case management has been working on discharge plan. Referrals have been submitted to SNF's throughout [place]. Left msg for both Lc Houghjeffry [phone] and Subha Tejeda [phone]. To further discuss discharge options. Tricia Gerber RN Case Homemaker Companion of Care Management [email or web address] Pager: [phone] * Yossi Morin DO - 11/11/2017 3:18 PM EDT HOSPITAL MEDICINE ATTENDING DAILY PROGRESS NOTE Patient: Miguel Angel Mason, 1990, [id number] Physician: Yossi Morin DO, Pager: [phone], Hospital Medicine Service Admit Date: 09/02/2017 Date of Service: November 11, 2017 LOS: 70 PCP: NAKIA Cifuentes, SUBJECTIVE: Good night last night again, but more agitated and uncomfortable this afternoon. OBJECTIVE: Last value Range last 24 hrs Temp: 36.4 ??C (97.5 ??F) Temp: [36.4 ??C (97.5 ??F)] Heart Rate: (!) 129 Heart Rate: [129] BP: 135/89 BP: (135-143)/(89-100) Resp: 18 Resp: [18] SpO2: 99 % SpO2: [99 %] I/O last 1 completed shift: In: 300 [P.O.:300] Out: 1200 [Urine:1200] Intake/Output Summary (Last 24 hours) at 11/11/17 1518 Last data filed at 11/11/17 0653 Gross per 24 hour Intake 1827 ml Output 1200 ml Net 627 ml No data found. There is no height or weight on file to calculate BMI. GEN: sleepy, alert, NAD HEENT: PERRLA, EOMI, MMM, trachea midline, no JVD CHEST: CTA B/L, no W/R/R, no accessory muscle use HEART: RRR, S1S2, no M/R/G, no LE edema ABD/PEL: soft, NT, ND, +BS EXT: no clubbing or cyanosis, no erythema PSYCH/NEURO: verbal and answering easy questions slowly LABS/IMAGING: Recent Labs 11/10/17 0736 11/10/17 0624 11/09/17 2041 NA 145 Not Perf 145 K 3.7 Not Perf Not Perf CL 99 98 104 CO2 26 27 23 BUN 18 18 18 CREATININE 0.87 Not Perf 1.01 CALCIUM 8.9 8.8 8.9 No results for input(s): WBC, HGB, HCT, MCV, PLATELET in the last 72 hours. No results for input(s): PT, INR, PTT in the last 72 hours. ASSESSMENT/PLAN: Active Hospital Problems Diagnosis ??? S/P ORIF left acetabulum fracture 09/04/2017 Dr. Lance ??? Postoperative anemia due to acute blood loss ??? Diabetes insipidus ??? Adrenal insufficiency ??? Panhypopituitarism ??? Seizure disorder ??? Hypothyroidism Resolved Hospital Problems Diagnosis Date Resolved No resolved problems to display. 1. L acetabular fracture: s/p operative repair on 09/04/2017 and orthopedics recommending NWB LLE through November. Standing hydromorphone, including a 6mg nighttime dose, and APAP for pain control. Oral hydromorphone available PRN, but has been used only twice in last 24hrs. Continue methocarbamol 1g PO TID for muscle spasms. Follow-up scheduled for 11/21/2017, but may not be able to be discharged before then due to behaviors (rehabilitation) and inability to climb stairs (nursing home). 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 Appreciate endocrinology recommendations and encourage PO intake to greater than 3.2L daily. Continue hormone replacement with hydrocortisone and levothyroxine orally and AndroGel transdermally. Seizures managed with home zonesamide 200mg PO QHS per neurology. Na stable. 3. Fractured left lower molar: Likely occurred with seizure and no evidence of acute infection. Extraction to occur in non-urgent manner pending availability, but per dentistry, not likely anytime soon. 4. Metabolic encephalopathy: Agitation likely due to pain. Will stop lorazepam and haloperidol as these medications continue to be given prior to hydromorphone as preferred. 5. DVT Prophylaxis: enoxaparin SQ CODE STATUS: FULL RESOLVED PROBLEMS: 1. Hypernatremia: Stable on on DDAVP 3 times daily with hold parameters per endocrinology recommendations. Follow weekly. Disposition: Rehabilitation not planned until able to bear weight on LLE. If not able to climb stairs, will need to look for alternative placement in a nursing home. IPI Certification I certify that I am a D-H credentialed attending provider with admitting privileges and that the patient meets or has met medical necessity to require an inpatient IPI level of care meeting a minimumof two midnights or is on the [facility] inpatient only procedure list (status C) due to: the patient has met Inpatient IPI criteria and is awaiting rehabilitation or half-way facility placement withactive referrals in process MEDICATIONS: SCHEDULED ??? HYDROmorphone 0.2 mg Intramuscular Once ??? HYDROmorphone 2 mg Oral TID AC ??? methocarbamol 1,000 mg Oral TID ??? senna-docusate 1 tablet Oral Daily ??? sodium chloride 0.9 % 5 mL Intravenous Q12H ??? melatonin 9 mg Oral Nightly ??? testosterone 5 g Transdermal Nightly ??? acetaminophen 1,000 mg Oral Q8H ??? HYDROmorphone 6 mg Oral Nightly ??? desmopressin 0.05 mg Oral 3 times per day ??? methyl salicylate-menthol Topical (Top) BID ??? calcium carbonate 500 mg Oral BID ??? cholecalciferol (Vitamin D3) 1,000 Units Oral Daily ??? hydrocortisone 20 mg Oral QAM ??? hydrocortisone 10 mg Oral Daily at Noon ??? hydrocortisone 10 mg Oral Q24H ??? enoxaparin 40 mg Subcutaneous Nightly ??? levothyroxine 150 mcg Oral QAM ??? pantoprazole 40 mg Oral QAM AC ??? QUEtiapine 250 mg Oral Nightly ??? traZODone 50 mg Oral Nightly ??? zonisamide 200 mg Oral Nightly PRN HYDROmorphone 4 mg Q4H PRN simethicone 40 mg Q6H PRN sodium chloride 0.9 % 5-20 mL Q1 Min PRN lidocaine 0.3 mL Once PRN bisacodyl 10 mg Daily PRN polyethylene glycol (MIRALAX)oral powder 17 g Daily PRN senna-docusate 2 tablet BID PRN naphazoline-pheniramine 1 drop TID PRN Yossi Morin DO [id number] Hospitalist 11/11/2017 3:18 PM * Yossi Morin DO - 11/10/2017 2:21 PM EDT HOSPITAL MEDICINE ATTENDING DAILY PROGRESS NOTE Patient: Miguel Angel Mason, 1990, [id number] Physician: Yossi Morin DO, Pager: [phone], [facility] Medicine Service Admit Date: 09/02/2017 Date of Service: November 10, 2017 LOS: 69 PCP: NAKIA Cifuentes, SUBJECTIVE: Good night last night again. More sleepy this afternoon and not eating well. OBJECTIVE: Last value Range last 24 hrs Temp: 36.6 ??C (97.9 ??F) Temp: [36.3 ??C (97.3 ??F)-36.6 ??C (97.9 ??F)] Heart Rate: (!) 110 Heart Rate: [110-111] BP: (!) 141/91 BP: (127-141)/(75-93) Resp: 20 Resp: [18-20] SpO2: 99 % SpO2: [93 %-99 %] I/O last 1 completed shift: In: 1800 [P.O.:1800] Out: - Intake/Output Summary (Last 24 hours) at 11/10/17 1421 Last data filed at 11/10/17 1130 Gross per 24 hour Intake 2490 ml Output 850 ml Net 1640 ml No data found. There is no height or weight on file to calculate BMI. GEN: sleepy, alert, NAD HEENT: PERRLA, EOMI, MMM, trachea midline, no JVD CHEST: CTA B/L, no W/R/R, no accessory muscle use HEART: RRR, S1S2, no M/R/G, no LE edema ABD/PEL: soft, NT, ND, +BS EXT: no clubbing or cyanosis, no erythema PSYCH/NEURO: verbal and answering easy questions slowly LABS/IMAGING: Recent Labs 11/10/17 0736 11/10/17 0624 11/09/17 2041 NA 145 Not Perf 145 K 3.7 Not Perf Not Perf CL 99 98 104 CO2 26 27 23 BUN 18 18 18 CREATININE 0.87 Not Perf 1.01 CALCIUM 8.9 8.8 8.9 No results for input(s): WBC, HGB, HCT, MCV, PLATELET in the last 72 hours. No results for input(s): PT, INR, PTT in the last 72 hours. ASSESSMENT/PLAN: Active Hospital Problems Diagnosis ??? S/P ORIF left acetabulum fracture 09/04/2017 Dr. Lance ??? Postoperative anemia due to acute blood loss ??? Diabetes insipidus ??? Adrenal insufficiency ??? Panhypopituitarism ??? Seizure disorder ??? Hypothyroidism Resolved Hospital Problems Diagnosis Date Resolved No resolved problems to display. 1. L acetabular fracture: s/p operative repair on 09/04/2017 and orthopedics recommending NWB LLE through November. Standing hydromorphone started today and continue standing APAP for pain control. Oral hydromorphone available as needed with standing nighttime dose of 6mg for pain control and agitation management overnight. Continue methocarbamol 1g PO TID for muscle spasms. Follow-up scheduled for 11/21/2017, but may not be able to be discharged before then due to behaviors (rehabilitation) and inability to climb stairs (nursing home). 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 Appreciate endocrinology recommendations and encourage PO intake to greater than 3.2L daily. Continue hormone replacement with hydrocortisone and levothyroxine orally and AndroGel transdermally. Seizures managed with home zonesamide 200mg PO QHS per neurology. Na stable. 3. Fractured left lower molar: Likely occurred with seizure and no evidence of acute infection. Extraction to occur in non-urgent manner pending availability, but per dentistry, not likely anytime soon. 4. Metabolic encephalopathy: Agitation likely due to pain. Please try hydromorphone PRIOR to lorazepam or haloperidol. 5. DVT Prophylaxis: enoxaparin SQ CODE STATUS: FULL RESOLVED PROBLEMS: 1. Hypernatremia: Stable on on DDAVP 3 times daily with hold parameters per endocrinology recommendations. Follow weekly. Disposition: Rehabilitation not planned until able to bear weight on LLE. If not able to climb stairs, will need to look for alternative placement in a nursing home. IPI Certification I certify that I am a D-H credentialed attending provider with admitting privileges and that the patient meets or has met medical necessity to require an inpatient IPI level of care meeting a minimumof two midnights or is on the CMS inpatient only procedure list (status C) due to: the patient has met Inpatient IPI criteria and is awaiting rehabilitation or half-way facility placement withactive referrals in process MEDICATIONS: SCHEDULED ??? HYDROmorphone 2 mg Oral TID AC ??? methocarbamol 1,000 mg Oral TID ??? senna-docusate 1 tablet Oral Daily ??? sodium chloride 0.9 % 5 mL Intravenous Q12H ??? melatonin 9 mg Oral Nightly ??? testosterone 5 g Transdermal Nightly ??? acetaminophen 1,000 mg Oral Q8H ??? HYDROmorphone 6 mg Oral Nightly ??? desmopressin 0.05 mg Oral 3 times per day ??? methyl salicylate-menthol Topical (Top) BID ??? calcium carbonate 500 mg Oral BID ??? cholecalciferol (Vitamin D3) 1,000 Units Oral Daily ??? hydrocortisone 20 mg Oral QAM ??? hydrocortisone 10 mg Oral Daily at Noon ??? hydrocortisone 10 mg Oral Q24H ??? enoxaparin 40 mg Subcutaneous Nightly ??? levothyroxine 150 mcg Oral QAM ??? pantoprazole 40 mg Oral QAM AC ??? QUEtiapine 250 mg Oral Nightly ??? traZODone 50 mg Oral Nightly ??? zonisamide 200 mg Oral Nightly PRN HYDROmorphone 4 mg Q4H PRN simethicone 40 mg Q6H PRN sodium chloride 0.9 % 5-20 mL Q1 Min PRN lidocaine 0.3 mL Once PRN bisacodyl 10 mg Daily PRN LORazepam 0.5 mg BID PRN haloperidol 2 mg Q6H PRN polyethylene glycol (MIRALAX)oral powder 17 g Daily PRN senna-docusate 2 tablet BID PRN naphazoline-pheniramine 1 drop TID PRN oYssi Morin DO 2700 Hospitalist 11/10/2017 2:21 PM * Isabell Laureano RN - 11/09/2017 8:11 PM EDT Pt alert, disoriented, transferred to 1 E this early evening. Cooperative with medication regimen. Tachycardic during the shift, agitated, redirectable with play. Had good appetite for dinner. Sitterat bedside. Continue to monitor, safety maintained. * Jeannette Don RN - 11/09/2017 4:06 PM EDT Pt being transferred to [facility]. Report given to RN. Jeannette Don RN * Yossi Morin DO - 11/09/2017 12:18 PM EDT [facility] MEDICINE ATTENDING DAILY PROGRESS NOTE Patient: Miguel Angel Mason, 1990, [id number] Physician: Yossi Morin DO, Pager: [phone], [facility] Medicine Service Admit Date: 09/02/2017 Date of Service: November 09, 2017 LOS: 68 PCP: NAKIA Cifuentes, SUBJECTIVE: Better night last night. Wake and eating breakfast. Responding to simple questions easily. No complaints. Denies pain. OBJECTIVE: Last value Range last 24 hrs Temp: 36.4 ??C (97.5 ??F) Temp: [36.4 ??C (97.5 ??F)] Heart Rate: (!) 105 Heart Rate: -- BP: (!) 162/115 BP: (111-162)/(58-115) Resp: 20 Resp: [17-22] SpO2: 92 % SpO2: [85 %-97 %] I/O last 1 completed shift: In: 210 [P.O.:210] Out: 1075 [Urine:1075] Intake/Output Summary (Last 24 hours) at 11/09/17 1220 Last data filed at 11/09/17 0949 Gross per 24 hour Intake 1436 ml Output 1075 ml Net 361 ml No data found. There is no height or weight on file to calculate BMI. GEN: awake, alert, NAD HEENT: PERRLA, EOMI, MMM, trachea midline, no JVD CHEST: CTA B/L, no W/R/R, no accessory muscle use HEART: RRR, S1S2, no M/R/G, no LE edema ABD/PEL: soft, NT, ND, +BS EXT: no clubbing or cyanosis, no erythema PSYCH/NEURO: verbal and answering easy questions easily, follows commands LABS/IMAGING: No results for input(s): NA, K, CL, CO2, BUN, CREATININE, CALCIUM, MAGNESIUM, PHOS in the last 72 hours. No results for input(s): WBC, HGB, HCT, MCV, PLATELET in the last 72 hours. No results for input(s): PT, INR, PTT in the last 72 hours. ASSESSMENT/PLAN: Active Hospital Problems Diagnosis ??? S/P ORIF left acetabulum fracture 09/04/2017 Dr. Lance ??? Postoperative anemia due to acute blood loss ??? Diabetes insipidus ??? Adrenal insufficiency ??? Panhypopituitarism ??? Seizure disorder ??? Hypothyroidism Resolved Hospital Problems Diagnosis Date Resolved No resolved problems to display. 1. L acetabular fracture: s/p operative repair on 09/04/2017 and orthopedics recommending NWB LLE through November. Can stand pivot transfer from wheelchair though. Continue hydromorphone and standing APAP for pain control. . Oral hydromorphone available as needed with standing nighttime dose of 6mg for pain control and agitation management overnight. Continue methocarbamol 1g PO TID for muscle spasms. 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 Appreciate endocrinology recommendations and encourage PO intake to greater than 3.2L daily. Continue hormone replacement with hydrocortisone and levothyroxine orally and AndroGel transdermally. Seizures managed with home zonesamide 200mg PO QHS per neurology. 3. Fractured left lower molar: Likely occurred with seizure and no evidence of acute infection. Extraction to occur in non-urgent manner pending availability, but per dentistry, not likely anytime soon. 4. Metabolic encephalopathy: Agitation likely due to pain. Please try hydromorphone PRIOR to lorazepam or haloperidol. 5. DVT Prophylaxis: enoxaparin SQ CODE STATUS: FULL RESOLVED PROBLEMS: 1. Hypernatremia: Stable on on DDAVP 3 times daily with hold parameters per endocrinology recommendations. Follow weekly. Disposition: Unclear disposition as his current room is on the second floor. His nonweightbearing status prevents him from returning to this home as he must be able to climb stairs. IPI Certification I certify that I am a D-H credentialed attending provider with admitting privileges and that the patient meets or has met medical necessity to require an inpatient IPI level of care meeting a minimumof two midnights or is on the [facility] inpatient only procedure list (status C) due to: the patient has met Inpatient IPI criteria and is awaiting rehabilitation or half-way facility placement withactive referrals in process MEDICATIONS: SCHEDULED ??? methocarbamol 1,000 mg Oral TID ??? senna-docusate 1 tablet Oral Daily ??? sodium chloride 0.9 % 5 mL Intravenous Q12H ??? melatonin 9 mg Oral Nightly ??? testosterone 5 g Transdermal Nightly ??? acetaminophen 1,000 mg Oral Q8H ??? HYDROmorphone 6 mg Oral Nightly ??? desmopressin 0.05 mg Oral 3 times per day ??? methyl salicylate-menthol Topical (Top) BID ??? calcium carbonate 500 mg Oral BID ??? cholecalciferol (Vitamin D3) 1,000 Units Oral Daily ??? hydrocortisone 20 mg Oral QAM ??? hydrocortisone 10 mg Oral Daily at Noon ??? hydrocortisone 10 mg Oral Q24H ??? enoxaparin 40 mg Subcutaneous Nightly ??? levothyroxine 150 mcg Oral QAM ??? pantoprazole 40 mg Oral QAM AC ??? QUEtiapine 250 mg Oral Nightly ??? traZODone 50 mg Oral Nightly ??? zonisamide 200 mg Oral Nightly PRN simethicone 40 mg Q6H PRN sodium chloride 0.9 % 5-20 mL Q1 Min PRN lidocaine 0.3 mL Once PRN HYDROmorphone 4-8 mg Q4H PRN bisacodyl 10 mg Daily PRN LORazepam 0.5 mg BID PRN haloperidol 2 mg Q6H PRN polyethylene glycol (MIRALAX)oral powder 17 g Daily PRN senna-docusate 2 tablet BID PRN naphazoline-pheniramine 1 drop TID PRN Yossi Morin DO [id number] Hospitalist 11/09/2017 12:20 PM * Yossi Morin DO - 11/08/2017 2:47 PM EDT HOSPITAL MEDICINE ATTENDING DAILY PROGRESS NOTE Patient: Miguel Angel Mason, 1990, [id number] Physician: Yossi Morin DO, Pager: [phone], Hospital Medicine Service Admit Date: 09/02/2017 Date of Service: November 08, 2017 LOS: 67 PCP: NAKIA Cifuentes, SUBJECTIVE: Sleeping, but awoke to shake my hand and followed commands easily. Difficulty sleeping last night and received haloperidol, lorazepam, and hydromorphone. OBJECTIVE: Last value Range last 24 hrs Temp: 36.2 ??C (97.2 ??F) Temp: [36.2 ??C (97.2 ??F)] Heart Rate: (!) 105 Heart Rate: -- BP: (!) 139/100 BP: (139-141)/(95-100) Resp: 18 Resp: [18] SpO2: (!) 85 % SpO2: [85 %-97 %] I/O last 1 completed shift: In: 600 [P.O.:600] Out: - Intake/Output Summary (Last 24 hours) at 11/08/17 1447 Last data filed at 11/08/17 1356 Gross per 24 hour Intake 1930 ml Output 0 ml Net 1930 ml No data found. There is no height or weight on file to calculate BMI. GEN: awake, alert, NAD HEENT: PERRLA, EOMI, MMM, trachea midline, no JVD CHEST: CTA B/L, no W/R/R, no accessory muscle use HEART: RRR S1S2, no M/R/G, no LE edema ABD/PEL: soft, NT, ND, +BS EXT: no clubbing or cyanosis, no erythema PSYCH/NEURO: non-verbal, follows commands LABS/IMAGING: No results for input(s): NA, K, CL, CO2, BUN, CREATININE, CALCIUM, MAGNESIUM, PHOS in the last 72 hours. No results for input(s): WBC, HGB, HCT, MCV, PLATELET in the last 72 hours. No results for input(s): PT, INR, PTT in the last 72 hours. ASSESSMENT/PLAN: Active Hospital Problems Diagnosis ??? S/P ORIF left acetabulum fracture 09/04/2017 Dr. Lance ??? Postoperative anemia due to acute blood loss ??? Diabetes insipidus ??? Adrenal insufficiency ??? Panhypopituitarism ??? Seizure disorder ??? Hypothyroidism Resolved Hospital Problems Diagnosis Date Resolved No resolved problems to display. 1. L acetabular fracture: s/p operative repair on 09/04/2017 and orthopedics recommending NWB LLE through November. Can stand pivot transfer from wheelchair though. Continue hydromorphone and standing APAP for pain control. . Oral hydromorphone available as needed with standing nighttime dose of 6mg for pain control and agitation management overnight. Continue methocarbamol 1g PO TID for muscle spasms. 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 Appreciate endocrinology recommendations and encourage PO intake to greater than 3.2L daily. Continue hormone replacement with hydrocortisone and levothyroxine orally and AndroGel transdermally. Seizures managed with home zonesamide 200mg PO QHS per neurology. 3. Fractured left lower molar: Likely occurred with seizure and no evidence of acute infection. Extraction to occur in non-urgent manner pending availability, but per dentistry, not likely anytime soon. 4. Metabolic encephalopathy: Agitation likely due to pain. Encourage use of hydromorphone prior to lorazepam or haloperidol. 5. DVT Prophylaxis: enoxaparin SQ CODE STATUS: FULL RESOLVED PROBLEMS: 1. Hypernatremia: Stable on on DDAVP 3 times daily with hold parameters per endocrinology recommendations. Follow weekly. Disposition: Unclear disposition as his current room is on the second floor. His nonweightbearing status prevents him from returning to this home as he must be able to climb stairs. IPI Certification I certify that I am a D-H credentialed attending provider with admitting privileges and that the patient meets or has met medical necessity to require an inpatient IPI level of care meeting a minimumof two midnights or is on the CMS inpatient only procedure list (status C) due to: the patient has met Inpatient IPI criteria and is awaiting rehabilitation or half-way facility placement withactive referrals in process MEDICATIONS: SCHEDULED ??? methocarbamol 1,000 mg Oral TID ??? senna-docusate 1 tablet Oral Daily ??? sodium chloride 0.9 % 5 mL Intravenous Q12H ??? melatonin 9 mg Oral Nightly ??? testosterone 5 g Transdermal Nightly ??? acetaminophen 1,000 mg Oral Q8H ??? HYDROmorphone 6 mg Oral Nightly ??? desmopressin 0.05 mg Oral 3 times per day ??? methyl salicylate-menthol Topical (Top) BID ??? calcium carbonate 500 mg Oral BID ??? cholecalciferol (Vitamin D3) 1,000 Units Oral Daily ??? hydrocortisone 20 mg Oral QAM ??? hydrocortisone 10 mg Oral Daily at Noon ??? hydrocortisone 10 mg Oral Q24H ??? enoxaparin 40 mg Subcutaneous Nightly ??? levothyroxine 150 mcg Oral QAM ??? pantoprazole 40 mg Oral QAM AC ??? QUEtiapine 250 mg Oral Nightly ??? traZODone 50 mg Oral Nightly ??? zonisamide 200 mg Oral Nightly PRN simethicone 40 mg Q6H PRN sodium chloride 0.9 % 5-20 mL Q1 Min PRN lidocaine 0.3 mL Once PRN HYDROmorphone 4-8 mg Q4H PRN bisacodyl 10 mg Daily PRN LORazepam 0.5 mg BID PRN haloperidol 2 mg Q6H PRN polyethylene glycol (MIRALAX)oral powder 17 g Daily PRN senna-docusate 2 tablet BID PRN naphazoline-pheniramine 1 drop TID PRN Yossi Morin DO 2700 Hospitalist 11/08/2017 2:47 PM * Isabel Donis MD - 11/07/2017 4:26 PM EDT Hospital Medicine Attending Daily Progress Note Admit Date: 09/02/2017 Hospital Day 66 days Active Hospital Problems Diagnosis ??? S/P ORIF left acetabulum fracture 09/04/2017 Dr. Lance ??? Postoperative anemia due to acute blood loss ??? Diabetes insipidus ??? Adrenal insufficiency ??? Panhypopituitarism ??? Seizure disorder ??? Hypothyroidism Resolved Hospital Problems Diagnosis Date Resolved No resolved problems to display. PMH Active Non-Hospital Problems Diagnosis ??? Insomnia ??? Blind ??? CVA (cerebral vascular accident) ??? Urinary incontinence Inpatient Medications: Scheduled ??? methocarbamol 1,000 mg Oral TID ??? senna-docusate 1 tablet Oral Daily ??? sodium chloride 0.9 % 5 mL Intravenous Q12H ??? melatonin 9 mg Oral Nightly ??? testosterone 5 g Transdermal Nightly ??? acetaminophen 1,000 mg Oral Q8H ??? HYDROmorphone 6 mg Oral Nightly ??? desmopressin 0.05 mg Oral 3 times per day ??? methyl salicylate-menthol Topical (Top) BID ??? calcium carbonate 500 mg Oral BID ??? cholecalciferol (Vitamin D3) 1,000 Units Oral Daily ??? hydrocortisone 20 mg Oral QAM ??? hydrocortisone 10 mg Oral Daily at Noon ??? hydrocortisone 10 mg Oral Q24H ??? enoxaparin 40 mg Subcutaneous Nightly ??? levothyroxine 150 mcg Oral QAM ??? pantoprazole 40 mg Oral QAM AC ??? QUEtiapine 250 mg Oral Nightly ??? traZODone 50 mg Oral Nightly ??? zonisamide 200 mg Oral Nightly Continuous infusions: PRN: simethicone, sodium chloride 0.9 %, lidocaine, HYDROmorphone, bisacodyl, LORazepam, haloperidol, polyethylene glycol (MIRALAX)oral powder, senna- docusate, naphazoline-pheniramine Interval History: - No acute events overnight Subjective: Unable to provide ROS due to nonverbal state. Resting calmly in bed with intermittent yelling/screaming. Caregiver at bedside. Physical Exam Vitals Range last 24 hrs Temperature Temp: [35.9 ??C (96.6 ??F)-37 ??C (98.6 ??F)] Heart Rate Heart Rate: -- Blood Pressure BP: (141-161)/(93-95) Respiratory Rate Resp: [18] SpO2 SpO2: [97 %-100 %] Intake/Output Summary (Last 24 hours) at 11/07/17 1626 Last data filed at 11/07/17 1550 Gross per 24 hour Intake 3705 ml Output 1275 ml Net 2430 ml No data found. There is no height or weight on file to calculate BMI. Gen: Young M in NAD, sitting on commode HEENT: EOMI, anicteric, MMM, OP clear, no lesions/exudate. Fractured #21 molar noted on left mandibular molar but nontender, no abscess concerns. Neck: Full ROM. No JVD. Heart: RRR, Nl S1, S2. No M/R/Gs Lungs: CTAB. No rales, rhonchi, wheezes Abdo: Soft, NT, ND. NABS. Ext: No erythema, edema or asymmetry. No clubbing. Pulses 2+ throughout. Skin: No rashes/lesions Neuro: Mental Status - Unable to obtain. Non verbal. ONTIVEROS. Studies reviewed in eDH. Remarkable for the following: LABS: No results for input(s): WBC, HGB, PLATELET in the last 168 hours. Recent Labs 11/03/17 0403 11/02/17 0738 11/01/17 0501 NA 140 136 138 No results for input(s): PROT, ALBUMIN, BILITOT, BILIDIR, AST, ALT, ALKPHOS in the last 168 hours. No results for input(s): INR, FIBRINOGEN in the last 168 hours. No results for input(s): TROPONINT, CK, LACTATE in the last 168 hours. Imaging: CT face (10/20) - IMPRESSION Multiple dental caries. Dental restorations limits resolution somewhat but no definite molar fracture can be seen. Consider Panorex of the mandible. Assessment: Mr. Miguel Angel Mason is an unfortunate 27 year old man with h/o resection of pituitary tumor complicated by interaoperative hemorrhage and CVA, cognitive impairment, cortical blindness, partial left-sided paralysis, seizure disorder and panhypopit (cDI, AI, hypothyroidism, hypogonadism) who was admitted on 09/02 with left acetabular fracture which occurred during a possible seizure. He is s/p operative repair 09/04 with course complicated by issues with sodium and fluid homeostasis when his DDAVP was stopped, but these have now resolved with restarting home DDAVP. Agitation is likely due to pain with improvement noted largely with dilaudid and robaxin, would continue to assume agitation is related to pain and continue such agitation management with dilaudid preferentially over ativan/haldol. Will also increase robaxin to 1000mg TID but consider changing to zanaflex. He is waiting for placementas he can't climb stairs (due to LLE NWB status) and his home facility has only a second floor roomfor him. However placement options have not yet been found, appreciate CM assistance. Dentist confirmed fracture of molar #21 at gingiva without evidence of acute infection. Extraction to occur in non-urgent manner pending availability but per dentist not likely anytime soon. 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, adrenal insufficiency, hypothyroidism, hypogonadism), resolved - Na check q week since Na stable x 1 week - Appreciate endocrine assistance - Continue TID DDAVP (will appropriate hold parameters), encourage PO intake of upwards of 3.2 L asper endocrine (or 110oz) - Continue to monitor urinary instances closely - Continue home hydrocortisone, levothyroxine - Resume home androgel daily - Continue Calcium with Vit D # Left acetabular fracture s/p operative repair on 09/04 - NWB LLE for at least another month (through November), ok for stand pivot transfer from wheelchair perortho - dilaudid prn, but will also continue scheduled 6mg dose at night to help limit nighttime agitation that is suspected to be pain related - continue standing tylenol 1g TID - continue methocarbamol TID for muscle spasms but increase dose to 1000mg TID, consider zanaflex # Seizure disorder - continue home zonesamide 200 qhs per neuro # Fractured left lower molar: - Likely occurred with seizure - CT complete - dentist confirmed fracture of molar at gingiva without evidence of acute infection.Extraction to occur in non-urgent manner pending availability but per dentist no likely anytime soon. IV access:none Tubes/Drains:none DVT PPX: lovenox Anticipated Disposition: unclear, CM working with [facility] IPI Certification I certify that I am a D-H credentialed attending provider with admitting privileges and that the patient meets or has met medical necessity to require an inpatient IPI level of care meeting a minimumof two midnights or is on the CMS inpatient only procedure list (status C) due to: the patient has met Inpatient IPI criteria and is awaiting rehabilitation or half-way facility placement withactive referrals in process Team Pager( Coverage 27/01): #[phone] PCP: NAKIA Cifuentes [phone] Isabel Donis MD 11/07/2017 * Isabel Donis MD - 11/06/2017 3:06 PM EDT Hospital Medicine Attending Daily Progress Note Admit Date: 09/02/2017 Hospital Day 65 days Active Hospital Problems Diagnosis ??? S/P ORIF left acetabulum fracture 09/04/2017 Dr. Lance ??? Postoperative anemia due to acute blood loss ??? Diabetes insipidus ??? Adrenal insufficiency ??? Panhypopituitarism ??? Seizure disorder ??? Hypothyroidism Resolved Hospital Problems Diagnosis Date Resolved No resolved problems to display. PMH Active Non-Hospital Problems Diagnosis ??? Insomnia ??? Blind ??? CVA (cerebral vascular accident) ??? Urinary incontinence Inpatient Medications: Scheduled ??? methocarbamol 1,000 mg Oral TID ??? senna-docusate 1 tablet Oral Daily ??? sodium chloride 0.9 % 5 mL Intravenous Q12H ??? melatonin 9 mg Oral Nightly ??? testosterone 5 g Transdermal Nightly ??? acetaminophen 1,000 mg Oral Q8H ??? HYDROmorphone 6 mg Oral Nightly ??? desmopressin 0.05 mg Oral 3 times per day ??? methyl salicylate-menthol Topical (Top) BID ??? calcium carbonate 500 mg Oral BID ??? cholecalciferol (Vitamin D3) 1,000 Units Oral Daily ??? hydrocortisone 20 mg Oral QAM ??? hydrocortisone 10 mg Oral Daily at Noon ??? hydrocortisone 10 mg Oral Q24H ??? enoxaparin 40 mg Subcutaneous Nightly ??? levothyroxine 150 mcg Oral QAM ??? pantoprazole 40 mg Oral QAM AC ??? QUEtiapine 250 mg Oral Nightly ??? traZODone 50 mg Oral Nightly ??? zonisamide 200 mg Oral Nightly Continuous infusions: PRN: simethicone, sodium chloride 0.9 %, lidocaine, HYDROmorphone, bisacodyl, LORazepam, haloperidol, polyethylene glycol (MIRALAX)oral powder, senna- docusate, naphazoline-pheniramine Interval History: - No acute events overnight Subjective: Unable to provide ROS due to nonverbal state. Resting calmly in bed with intermittent yelling/screaming. Caregiver at bedside. Physical Exam Vitals Range last 24 hrs Temperature Temp: [36.4 ??C (97.5 ??F)] Heart Rate Heart Rate: -- Blood Pressure BP: (135-163)/(85-93) Respiratory Rate Resp: [18] SpO2 SpO2: [98 %-100 %] Intake/Output Summary (Last 24 hours) at 11/06/17 1506 Last data filed at 11/06/17 1506 Gross per 24 hour Intake 2985 ml Output 1000 ml Net 1985 ml No data found. There is no height or weight on file to calculate BMI. Gen: Young M in NAD, sitting on commode HEENT: EOMI, anicteric, MMM, OP clear, no lesions/exudate. Fractured #21 molar noted on left mandibular molar but nontender, no abscess concerns. Neck: Full ROM. No JVD. Heart: RRR, Nl S1, S2. No M/R/Gs Lungs: CTAB. No rales, rhonchi, wheezes Abdo: Soft, NT, ND. NABS. Ext: No erythema, edema or asymmetry. No clubbing. Pulses 2+ throughout. Skin: No rashes/lesions Neuro: Mental Status - Unable to obtain. Non verbal. ONTIVEROS. Studies reviewed in eDH. Remarkable for the following: LABS: No results for input(s): WBC, HGB, PLATELET in the last 168 hours. Recent Labs 11/03/17 0403 11/02/17 0738 11/01/17 0501 NA 140 136 138 No results for input(s): PROT, ALBUMIN, BILITOT, BILIDIR, AST, ALT, ALKPHOS in the last 168 hours. No results for input(s): INR, FIBRINOGEN in the last 168 hours. No results for input(s): TROPONINT, CK, LACTATE in the last 168 hours. Imaging: CT face (10/20) - IMPRESSION Multiple dental caries. Dental restorations limits resolution somewhat but no definite molar fracture can be seen. Consider Panorex of the mandible. Assessment: Mr. Miguel Angel Mason is an unfortunate 27 year old man with h/o resection of pituitary tumor complicated by interaoperative hemorrhage and CVA, cognitive impairment, cortical blindness, partial left-sided paralysis, seizure disorder and panhypopit (cDI, AI, hypothyroidism, hypogonadism) who was admitted on 09/02 with left acetabular fracture which occurred during a possible seizure. He is s/p operative repair 09/04 with course complicated by issues with sodium and fluid homeostasis when his DDAVP was stopped, but these have now resolved with restarting home DDAVP. Agitation is likely due to pain with improvement noted largely with dilaudid and robaxin, would continue to assume agitation is related to pain and continue such agitation management with dilaudid preferentially over ativan/haldol. Will also increase robaxin to 1000mg TID but consider changing to zanaflex. He is waiting for placementas he can't climb stairs (due to LLE NWB status) and his home facility has only a second floor roomfor him. However placement options have not yet been found, appreciate CM assistance. Dentist confirmed fracture of molar #21 at gingiva without evidence of acute infection. Extraction to occur in non-urgent manner pending availability but per dentist not likely anytime soon. 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, adrenal insufficiency, hypothyroidism, hypogonadism), resolved - Na check q week since Na stable x 1 week - Appreciate endocrine assistance - Continue TID DDAVP (will appropriate hold parameters), encourage PO intake of upwards of 3.2 L asper endocrine (or 110oz) - Continue to monitor urinary instances closely - Continue home hydrocortisone, levothyroxine - Resume home androgel daily - Continue Calcium with Vit D # Left acetabular fracture s/p operative repair on 09/04 - NWB LLE for at least another month (through November), ok for stand pivot transfer from wheelchair perortho - dilaudid prn, but will also continue scheduled 6mg dose at night to help limit nighttime agitation that is suspected to be pain related - continue standing tylenol 1g TID - continue methocarbamol TID for muscle spasms but increase dose to 1000mg TID, consider zanaflex # Seizure disorder - continue home zonesamide 200 qhs per neuro # Fractured left lower molar: - Likely occurred with seizure - CT complete - dentist confirmed fracture of molar at gingiva without evidence of acute infection.Extraction to occur in non-urgent manner pending availability but per dentist no likely anytime soon. IV access:none Tubes/Drains:none DVT PPX: lovenox Anticipated Disposition: unclear, CM working with [place] IPI Certification I certify that I am a D-H credentialed attending provider with admitting privileges and that the patient meets or has met medical necessity to require an inpatient IPI level of care meeting a minimumof two midnights or is on the [facility] inpatient only procedure list (status C) due to: the patient has met Inpatient IPI criteria and is awaiting rehabilitation or half-way facility placement withactive referrals in process Team Pager( Coverage 27/01): #[phone] PCP: NAKIA Cifuentes [phone] Isabel Donis MD 11/06/2017 * Isabel Donis MD - 11/05/2017 3:46 PM EDT [facility] Medicine Attending Daily Progress Note Admit Date: 09/02/2017 Hospital Day 64 days Active Hospital Problems Diagnosis ??? S/P ORIF left acetabulum fracture 09/04/2017 Dr. Lance ??? Postoperative anemia due to acute blood loss ??? Diabetes insipidus ??? Adrenal insufficiency ??? Panhypopituitarism ??? Seizure disorder ??? Hypothyroidism Resolved Hospital Problems Diagnosis Date Resolved No resolved problems to display. PMH Active Non-Hospital Problems Diagnosis ??? Insomnia ??? Blind ??? CVA (cerebral vascular accident) ??? Urinary incontinence Inpatient Medications: Scheduled ??? methocarbamol 1,000 mg Oral TID ??? senna-docusate 1 tablet Oral Daily ??? sodium chloride 0.9 % 5 mL Intravenous Q12H ??? melatonin 9 mg Oral Nightly ??? testosterone 5 g Transdermal Nightly ??? acetaminophen 1,000 mg Oral Q8H ??? HYDROmorphone 6 mg Oral Nightly ??? desmopressin 0.05 mg Oral 3 times per day ??? methyl salicylate-menthol Topical (Top) BID ??? calcium carbonate 500 mg Oral BID ??? cholecalciferol (Vitamin D3) 1,000 Units Oral Daily ??? hydrocortisone 20 mg Oral QAM ??? hydrocortisone 10 mg Oral Daily at Noon ??? hydrocortisone 10 mg Oral Q24H ??? enoxaparin 40 mg Subcutaneous Nightly ??? levothyroxine 150 mcg Oral QAM ??? pantoprazole 40 mg Oral QAM AC ??? QUEtiapine 250 mg Oral Nightly ??? traZODone 50 mg Oral Nightly ??? zonisamide 200 mg Oral Nightly Continuous infusions: PRN: simethicone, sodium chloride 0.9 %, lidocaine, HYDROmorphone, bisacodyl, LORazepam, haloperidol, polyethylene glycol (MIRALAX)oral powder, senna- docusate, naphazoline-pheniramine Interval History: - No acute events overnight Subjective: Unable to provide ROS due to nonverbal state. Resting calmly in bed. Caregiver at bedside. Physical Exam Vitals Range last 24 hrs Temperature Temp: [36.8 ??C (98.2 ??F)] Heart Rate Heart Rate: -- Blood Pressure BP: (139-155)/(93-106) Respiratory Rate Resp: [18] SpO2 SpO2: [88 %-99 %] Intake/Output Summary (Last 24 hours) at 11/05/17 1546 Last data filed at 11/05/17 0600 Gross per 24 hour Intake 1960 ml Output 1100 ml Net 860 ml No data found. There is no height or weight on file to calculate BMI. Gen: Young M in NAD, sitting on commode HEENT: EOMI, anicteric, MMM, OP clear, no lesions/exudate. Fractured #21 molar noted on left mandibular molar but nontender, no abscess concerns. Neck: Full ROM. No JVD. Heart: RRR, Nl S1, S2. No M/R/Gs Lungs: CTAB. No rales, rhonchi, wheezes Abdo: Soft, NT, ND. NABS. Ext: No erythema, edema or asymmetry. No clubbing. Pulses 2+ throughout. Skin: No rashes/lesions Neuro: Mental Status - Unable to obtain. Non verbal. ONTIVEROS. Studies reviewed in eDH. Remarkable for the following: LABS: No results for input(s): WBC, HGB, PLATELET in the last 168 hours. Recent Labs 11/03/17 0403 11/02/17 0738 11/01/17 0501 NA 140 136 138 No results for input(s): PROT, ALBUMIN, BILITOT, BILIDIR, AST, ALT, ALKPHOS in the last 168 hours. No results for input(s): INR, FIBRINOGEN in the last 168 hours. No results for input(s): TROPONINT, CK, LACTATE in the last 168 hours. Imaging: CT face (10/20) - IMPRESSION Multiple dental caries. Dental restorations limits resolution somewhat but no definite molar fracture can be seen. Consider Panorex of the mandible. Assessment: Mr. Miguel Angel Mason is an unfortunate 27 year old man with h/o resection of pituitary tumor complicated by interaoperative hemorrhage and CVA, cognitive impairment, cortical blindness, partial left-sided paralysis, seizure disorder and panhypopit (cDI, AI, hypothyroidism, hypogonadism) who was admitted on 09/02 with left acetabular fracture which occurred during a possible seizure. He is s/p operative repair 09/04 with course complicated by issues with sodium and fluid homeostasis when his DDAVP was stopped, but these have now resolved with restarting home DDAVP. Agitation is likely due to pain with improvement noted largely with dilaudid and robaxin, would continue to assume agitation is related to pain and continue such agitation management with dilaudid preferentially over ativan/haldol. Will also increase robaxin to 1000mg TID but consider changing to zanaflex. He is waiting for placementas he can't climb stairs (due to LLE NWB status) and his home facility has only a second floor roomfor him. However placement options have not yet been found, appreciate CM assistance. Dentist confirmed fracture of molar #21 at gingiva without evidence of acute infection. Extraction to occur in non-urgent manner pending availability but per dentist not likely anytime soon. 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, adrenal insufficiency, hypothyroidism, hypogonadism), resolved - Na check q week since Na stable x 1 week - Appreciate endocrine assistance - Continue TID DDAVP (will appropriate hold parameters), encourage PO intake of upwards of 3.2 L asper endocrine (or 110oz) - Continue to monitor urinary instances closely - Continue home hydrocortisone, levothyroxine - Resume home androgel daily - Continue Calcium with Vit D # Left acetabular fracture s/p operative repair on 09/04 - NWB LLE for at least another month (through November), ok for stand pivot transfer from wheelchair perortho - dilaudid prn, but will also continue scheduled 6mg dose at night to help limit nighttime agitation that is suspected to be pain related - continue standing tylenol 1g TID - continue methocarbamol TID for muscle spasms but increase dose to 1000mg TID, consider zanaflex # Seizure disorder - continue home zonesamide 200 qhs per neuro # Fractured left lower molar: - Likely occurred with seizure - CT complete - dentist confirmed fracture of molar at gingiva without evidence of acute infection.Extraction to occur in non-urgent manner pending availability but per dentist no likely anytime soon. IV access:none Tubes/Drains:none DVT PPX: lovenox Anticipated Disposition: unclear, CM working with [place] IPI Certification I certify that I am a D-H credentialed attending provider with admitting privileges and that the patient meets or has met medical necessity to require an inpatient IPI level of care meeting a minimumof two midnights or is on the CMS inpatient only procedure list (status C) due to: the patient has met Inpatient IPI criteria and is awaiting rehabilitation or half-way facility placement withactive referrals in process Team Pager( Coverage 27/01): #[phone] PCP: NAKIA Cifuentes [phone] Isabel Donis MD 11/05/2017 * Isabel Donis MD - 11/04/2017 3:44 PM EDT Hospital Medicine Attending Daily Progress Note Admit Date: 09/02/2017 Hospital Day 63 days Active Hospital Problems Diagnosis ??? S/P ORIF left acetabulum fracture 09/04/2017 Dr. Lance ??? Postoperative anemia due to acute blood loss ??? Diabetes insipidus ??? Adrenal insufficiency ??? Panhypopituitarism ??? Seizure disorder ??? Hypothyroidism Resolved Hospital Problems Diagnosis Date Resolved No resolved problems to display. PMH Active Non-Hospital Problems Diagnosis ??? Insomnia ??? Blind ??? CVA (cerebral vascular accident) ??? Urinary incontinence Inpatient Medications: Scheduled ??? methocarbamol 1,000 mg Oral TID ??? senna-docusate 1 tablet Oral Daily ??? sodium chloride 0.9 % 5 mL Intravenous Q12H ??? melatonin 9 mg Oral Nightly ??? testosterone 5 g Transdermal Nightly ??? acetaminophen 1,000 mg Oral Q8H ??? HYDROmorphone 6 mg Oral Nightly ??? desmopressin 0.05 mg Oral 3 times per day ??? methyl salicylate-menthol Topical (Top) BID ??? calcium carbonate 500 mg Oral BID ??? cholecalciferol (Vitamin D3) 1,000 Units Oral Daily ??? hydrocortisone 20 mg Oral QAM ??? hydrocortisone 10 mg Oral Daily at Noon ??? hydrocortisone 10 mg Oral Q24H ??? enoxaparin 40 mg Subcutaneous Nightly ??? levothyroxine 150 mcg Oral QAM ??? pantoprazole 40 mg Oral QAM AC ??? QUEtiapine 250 mg Oral Nightly ??? traZODone 50 mg Oral Nightly ??? zonisamide 200 mg Oral Nightly Continuous infusions: PRN: simethicone, sodium chloride 0.9 %, lidocaine, HYDROmorphone, bisacodyl, LORazepam, haloperidol, polyethylene glycol (MIRALAX)oral powder, senna- docusate, naphazoline-pheniramine Interval History: - No acute events overnight - Hypertensive - Awaiting OT visit and then has an appointment for a haircut today. Subjective: Unable to provide ROS due to nonverbal state. Resting calmly in bed today, naked. Caregiver remainsat bedside. Physical Exam Vitals Range last 24 hrs Temperature Temp: [36.7 ??C (98.1 ??F)] Heart Rate Heart Rate: -- Blood Pressure BP: (137-156)/(102) Respiratory Rate Resp: [17-18] SpO2 SpO2: [96 %] Intake/Output Summary (Last 24 hours) at 11/04/17 1544 Last data filed at 11/04/17 1500 Gross per 24 hour Intake 3687 ml Output 1550 ml Net 2137 ml No data found. There is no height or weight on file to calculate BMI. Gen: Young M in NAD, sitting on commode HEENT: EOMI, anicteric, MMM, OP clear, no lesions/exudate. Fractured #21 molar noted on left mandibular molar but nontender, no abscess concerns. Neck: Full ROM. No JVD. Heart: RRR, Nl S1, S2. No M/R/Gs Lungs: CTAB. No rales, rhonchi, wheezes Abdo: Soft, NT, ND. NABS. Ext: No erythema, edema or asymmetry. No clubbing. Pulses 2+ throughout. Skin: No rashes/lesions Neuro: Mental Status - Unable to obtain. Non verbal. ONTIVEROS. Studies reviewed in eDH. Remarkable for the following: LABS: No results for input(s): WBC, HGB, PLATELET in the last 168 hours. Recent Labs 11/03/17 0403 11/02/17 0738 11/01/17 0501 NA 140 136 138 No results for input(s): PROT, ALBUMIN, BILITOT, BILIDIR, AST, ALT, ALKPHOS in the last 168 hours. No results for input(s): INR, FIBRINOGEN in the last 168 hours. No results for input(s): TROPONINT, CK, LACTATE in the last 168 hours. Imaging: CT face (10/20) - IMPRESSION Multiple dental caries. Dental restorations limits resolution somewhat but no definite molar fracture can be seen. Consider Panorex of the mandible. Assessment: Mr. Miguel Angel Mason is an unfortunate 27 year old man with h/o resection of pituitary tumor complicated by interaoperative hemorrhage and CVA, cognitive impairment, cortical blindness, partial left-sided paralysis, seizure disorder and panhypopit (cDI, AI, hypothyroidism, hypogonadism) who was admitted on 09/02 with left acetabular fracture which occurred during a possible seizure. He is s/p operative repair 09/04 with course complicated by issues with sodium and fluid homeostasis when his DDAVP was stopped, but these have now resolved with restarting home DDAVP. Agitation is likely due to pain with improvement noted largely with dilaudid and robaxin, would continue to assume agitation is related to pain and continue such agitation management with dilaudid preferentially over ativan/haldol. Will also increase robaxin to 1000mg TID but consider changing to zanaflex. He is waiting for placementas he can't climb stairs (due to LLE NWB status) and his home facility has only a second floor roomfor him. However placement options have not yet been found, appreciate CM assistance. Dentist confirmed fracture of molar #21 at gingiva without evidence of acute infection. Extraction to occur in non-urgent manner pending availability but per dentist not likely anytime soon. 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, adrenal insufficiency, hypothyroidism, hypogonadism), resolved - Na check q week since Na stable x 1 week - Appreciate endocrine assistance - Continue TID DDAVP (will appropriate hold parameters), encourage PO intake of upwards of 3.2 L asper endocrine (or 110oz) - Continue to monitor urinary instances closely - Continue home hydrocortisone, levothyroxine - Resume home androgel daily - Continue Calcium with Vit D # Left acetabular fracture s/p operative repair on 09/04 - NWB LLE for at least another month (through November), ok for stand pivot transfer from wheelchair perortho - dilaudid prn, but will also continue scheduled 6mg dose at night to help limit nighttime agitation that is suspected to be pain related - continue standing tylenol 1g TID - continue methocarbamol TID for muscle spasms but increase dose to 1000mg TID, consider zanaflex # Seizure disorder - continue home zonesamide 200 qhs per neuro # Fractured left lower molar: - Likely occurred with seizure - CT complete - dentist confirmed fracture of molar at gingiva without evidence of acute infection.Extraction to occur in non-urgent manner pending availability but per dentist no likely anytime soon. IV access:none Tubes/Drains:none DVT PPX: lovenox Anticipated Disposition: unclear, LUCAS working with [place] IPI Certification I certify that I am a D-H credentialed attending provider with admitting privileges and that the patient meets or has met medical necessity to require an inpatient IPI level of care meeting a minimumof two midnights or is on the CMS inpatient only procedure list (status C) due to: the patient has met Inpatient IPI criteria and is awaiting rehabilitation or half-way facility placement withactive referrals in process Team Pager(MD Baca 27/01): #[phone] PCP: NAKIA Cifuentes [phone] Isabel Donis MD 11/04/2017 * Celine Power MD - 11/04/2017 11:51 AM EDT Orthopaedic Surgery Progress Note Surgery/Issue: ORIF left acetabulum Attending: Dr. Lance Date of surgery: 09/04/2017 Subjective/Events: - JAMAL over the past few days. Has had some noted increase in agitation requiring sitter but has agitation at baseline. - Continues working with PT -Denies any pain on exam and moving all extremities in bed. - Continued intermittent incontinence that is not new for patient - Afebrile VSS Objcetive: Temp: [36.7 ??C (98.1 ??F)] Resp: [17-18] BP: (137-156)/(102) Intake/Output Summary (Last 24 hours) at 11/04/17 1157 Last data filed at 11/04/17 1000 Gross per 24 hour Intake 3329 ml Output 1550 ml Net 1779 ml Lab Results Component Value Date NA 140 11/03/2017 K 3.7 10/28/2017 CL 99 10/28/2017 CO2 24 10/28/2017 BUN 15 10/28/2017 CREATININE 0.85 10/28/2017 GLUCOSE 116 10/28/2017 GLUCFASTING 82 10/28/2017 CALCIUM 9.1 10/28/2017 Lab Results Component Value Date WBC 6.6 10/22/2017 HGB 12.9 (L) 10/22/2017 HCT 40.5 10/22/2017 MCV 80.0 (L) 10/22/2017 PLATELET 339 10/22/2017 Lab Results Component Value Date INR 1.1 09/03/2017 Exam: General: comfortable, resting in bed with sheet covering body; resting comfortably this morning. CV: RR assessed peripherally Resp: no increased work of breathing LLE: Anterior pelvic and left lower abdominal incisions c/d/i, no erythema or edema. Abdomen soft, non tender, no ecchymoses Unable to assess motor/sensory formally but moving all 4 extremities in the bed. SILT distally Palpable DP/PT Imaging: XR pelvis IMPRESSION Unchanged osseous alignment. Difficult to identify interval callus formation/healing. No equipment complication seen. XR Judet IMPRESSION Stable bony alignment. Stable position internal fixation device. No appreciable overlying sclerosisor bony callus. ?? A/P: 27 y.o. male s/p ORIF left acetabular fx on 09/04/17. Progressing well post operatively. Furthercare per medicine, dental, and CM/SW for placement. He had his 6 week follow on 10/21 with unchangedimages of his injuries, v. early signs of healing noted. Weight bearing status remains NWB LLE until mid to late November. Continue OOB with PT/OT and nursing. Activity: NWB LLE, OK for stand pivot transfer on right leg only DVT prophylaxis: lovenox Closure: carisa are removed, incisions show good healing Dressings: may leave open to air now Follow up: to be re-tasked at discharge - please page #[phone] prior to discharge so follow up can be arranged. If remains inpatient, will plan on repeat imaging about 11/18 to assess interval healing Celine Power MD, PGY-1 Orthopaedic Surgery Pager #: [phone] Future Appointments Date Time Provider Department Center 11/21/2017 10:45 AM [facility] DX ROOM 2 [facility] 11/21/2017 11:40 AM Amy Lance MD [facility] Associated attestation - Amy Lance MD - 11/05/2017 6:03 AM EDT Patient seen and examined. Agree with resident note. Mandy Lance MD Department of Orthopaedics 11/05/17 * Isabel Donis MD - 11/03/2017 2:55 PM EDT Hospital Medicine Attending Daily Progress Note Admit Date: 09/02/2017 Hospital Day 62 days Active Hospital Problems Diagnosis ??? S/P ORIF left acetabulum fracture 09/04/2017 Dr. Lance ??? Postoperative anemia due to acute blood loss ??? Diabetes insipidus ??? Adrenal insufficiency ??? Panhypopituitarism ??? Seizure disorder ??? Hypothyroidism Resolved Hospital Problems Diagnosis Date Resolved No resolved problems to display. PMH Active Non-Hospital Problems Diagnosis ??? Insomnia ??? Blind ??? CVA (cerebral vascular accident) ??? Urinary incontinence Inpatient Medications: Scheduled ??? methocarbamol 1,000 mg Oral TID ??? senna-docusate 1 tablet Oral Daily ??? sodium chloride 0.9 % 5 mL Intravenous Q12H ??? melatonin 9 mg Oral Nightly ??? testosterone 5 g Transdermal Nightly ??? acetaminophen 1,000 mg Oral Q8H ??? HYDROmorphone 6 mg Oral Nightly ??? desmopressin 0.05 mg Oral 3 times per day ??? methyl salicylate-menthol Topical (Top) BID ??? calcium carbonate 500 mg Oral BID ??? cholecalciferol (Vitamin D3) 1,000 Units Oral Daily ??? hydrocortisone 20 mg Oral QAM ??? hydrocortisone 10 mg Oral Daily at Noon ??? hydrocortisone 10 mg Oral Q24H ??? enoxaparin 40 mg Subcutaneous Nightly ??? levothyroxine 150 mcg Oral QAM ??? pantoprazole 40 mg Oral QAM AC ??? QUEtiapine 250 mg Oral Nightly ??? traZODone 50 mg Oral Nightly ??? zonisamide 200 mg Oral Nightly Continuous infusions: PRN: simethicone, sodium chloride 0.9 %, lidocaine, HYDROmorphone, bisacodyl, LORazepam, haloperidol, polyethylene glycol (MIRALAX)oral powder, senna- docusate, naphazoline-pheniramine Interval History: - No acute events overnight - Na stable - Agitated all day yesterday presumably due to boredom per RN - Awaiting PT visit now Subjective: Unable to provide ROS due to nonverbal state, screaming/yelling while sitting in wheelchair waitingon PT. Sitter remains at bedside. Physical Exam Vitals Range last 24 hrs Temperature Temp: [36.9 ??C (98.4 ??F)-37 ??C (98.6 ??F)] Heart Rate Heart Rate: -- Blood Pressure BP: (115-152)/(93-116) Respiratory Rate Resp: [16-19] SpO2 SpO2: [98 %] Intake/Output Summary (Last 24 hours) at 11/03/17 1455 Last data filed at 11/03/17 1300 Gross per 24 hour Intake 920 ml Output 1350 ml Net -430 ml No data found. There is no height or weight on file to calculate BMI. Gen: Young M in NAD, sitting on commode HEENT: EOMI, anicteric, MMM, OP clear, no lesions/exudate. Fractured #21 molar noted on left mandibular molar but nontender, no abscess concerns. Neck: Full ROM. No JVD. Heart: RRR, Nl S1, S2. No M/R/Gs Lungs: CTAB. No rales, rhonchi, wheezes Abdo: Soft, NT, ND. NABS. Ext: No erythema, edema or asymmetry. No clubbing. Pulses 2+ throughout. Skin: No rashes/lesions Neuro: Mental Status - Unable to obtain. Non verbal. ONTIVEROS. Studies reviewed in eDH. Remarkable for the following: LABS: No results for input(s): WBC, HGB, PLATELET in the last 168 hours. Recent Labs 11/03/17 0403 11/02/17 0738 11/01/17 0501 10/28/17 0922 10/28/17 0324 NA 140 136 138 < > 137 139 K -- -- -- -- 3.7 3.7 CO2 -- -- -- -- 24 26 CL -- -- -- -- 99 99 BUN -- -- -- -- 15 16 CREATININE -- -- -- -- 0.85 0.85 CALCIUM -- -- -- -- 9.1 8.9 < > = values in this interval not displayed. No results for input(s): PROT, ALBUMIN, BILITOT, BILIDIR, AST, ALT, ALKPHOS in the last 168 hours. No results for input(s): INR, FIBRINOGEN in the last 168 hours. No results for input(s): TROPONINT, CK, LACTATE in the last 168 hours. Imaging: CT face (10/20) - IMPRESSION Multiple dental caries. Dental restorations limits resolution somewhat but no definite molar fracture can be seen. Consider Panorex of the mandible. Assessment: Mr. Miguel Angel Mason is an unfortunate 27 year old man with h/o resection of pituitary tumor complicated by interaoperative hemorrhage and CVA, cognitive impairment, cortical blindness, partial left-sided paralysis, seizure disorder and panhypopit (cDI, AI, hypothyroidism, hypogonadism) who was admitted on 09/02 with left acetabular fracture which occurred during a possible seizure. He is s/p operative repair 09/04 with course complicated by issues with sodium and fluid homeostasis when his DDAVP was stopped, but these have now resolved with restarting home DDAVP. Agitation is likely due to pain with improvement noted largely with dilaudid and robaxin, would continue to assume agitation is related to pain and continue such agitation management with dilaudid preferentially over ativan/haldol. Will also increase robaxin to 1000mg TID but consider changing to zanaflex. He is waiting for placementas he can't climb stairs (due to LLE NWB status) and his home facility has only a second floor roomfor him. However placement options have not yet been found, appreciate CM assistance. Dentist confirmed fracture of molar #21 at gingiva without evidence of acute infection. Extraction to occur in non-urgent manner pending availability but per dentist not likely anytime soon. 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, adrenal insufficiency, hypothyroidism, hypogonadism), resolved - Na check q week since Na stable x 1 week - Appreciate endocrine assistance - Continue TID DDAVP (will appropriate hold parameters), encourage PO intake of upwards of 3.2 L asper endocrine (or 110oz) - continue to monitor urinary instances closely - Continue home hydrocortisone, levothyroxine - Resume home androgel daily - Continue Calcium with Vit D # Left acetabular fracture s/p operative repair on 09/04 - NWB LLE for at least another month (through November), ok for stand pivot transfer from wheelchair perortho - dilaudid prn, but will also continue scheduled 6mg dose at night to help limit nighttime agitation that is suspected to be pain related - continue standing tylenol 1g TID - continue methocarbamol TID for muscle spasms but increase dose to 1000mg TID, consider zanaflex # Seizure disorder - continue home zonesamide 200 qhs per neuro # Fractured left lower molar: - Likely occurred with seizure - CT complete - dentist confirmed fracture of molar at gingiva without evidence of acute infection.Extraction to occur in non-urgent manner pending availability but per dentist no likely anytime soon. IV access:none Tubes/Drains:none DVT PPX: lovenox Anticipated Disposition: unclear, CM working with [place] IPI Certification I certify that I am a D-H credentialed attending provider with admitting privileges and that the patient meets or has met medical necessity to require an inpatient IPI level of care meeting a minimumof two midnights or is on the [facility] inpatient only procedure list (status C) due to: the patient has met Inpatient IPI criteria and is awaiting rehabilitation or half-way facility placement withactive referrals in process Team Pager( Coverage 27/01): #[phone] PCP: NAKIA Cifuentes [phone] Isabel Donis MD 11/03/2017 * Isabel Donis MD - 11/02/2017 3:29 PM EDT Hospital Medicine Attending Daily Progress Note Admit Date: 09/02/2017 Hospital Day 61 days Active Hospital Problems Diagnosis ??? S/P ORIF left acetabulum fracture 09/04/2017 Dr. Lance ??? Postoperative anemia due to acute blood loss ??? Diabetes insipidus ??? Adrenal insufficiency ??? Panhypopituitarism ??? Seizure disorder ??? Hypothyroidism Resolved Hospital Problems Diagnosis Date Resolved No resolved problems to display. PMH Active Non-Hospital Problems Diagnosis ??? Insomnia ??? Blind ??? CVA (cerebral vascular accident) ??? Urinary incontinence Inpatient Medications: Scheduled ??? methocarbamol 1,000 mg Oral TID ??? senna-docusate 1 tablet Oral Daily ??? sodium chloride 0.9 % 5 mL Intravenous Q12H ??? melatonin 9 mg Oral Nightly ??? testosterone 5 g Transdermal Nightly ??? acetaminophen 1,000 mg Oral Q8H ??? HYDROmorphone 6 mg Oral Nightly ??? desmopressin 0.05 mg Oral 3 times per day ??? methyl salicylate-menthol Topical (Top) BID ??? calcium carbonate 500 mg Oral BID ??? cholecalciferol (Vitamin D3) 1,000 Units Oral Daily ??? hydrocortisone 20 mg Oral QAM ??? hydrocortisone 10 mg Oral Daily at Noon ??? hydrocortisone 10 mg Oral Q24H ??? enoxaparin 40 mg Subcutaneous Nightly ??? levothyroxine 150 mcg Oral QAM ??? pantoprazole 40 mg Oral QAM AC ??? QUEtiapine 250 mg Oral Nightly ??? traZODone 50 mg Oral Nightly ??? zonisamide 200 mg Oral Nightly Continuous infusions: PRN: simethicone, sodium chloride 0.9 %, lidocaine, HYDROmorphone, bisacodyl, LORazepam, haloperidol, polyethylene glycol (MIRALAX)oral powder, senna- docusate, naphazoline-pheniramine Interval History: - No acute events overnight - Agitation increased this morning without response to ativan, methocarbamol or 6 mg dilaudid - Requested administration of extra 2 mg Subjective: Unable to provide ROS due to nonverbal state, screaming/yelling and scooting his body to the edge of his bed. Sitter remains at bedside. Physical Exam Vitals Range last 24 hrs Temperature Temp: [36.6 ??C (97.9 ??F)-36.9 ??C (98.4 ??F)] Heart Rate Heart Rate: -- Blood Pressure BP: (146-148)/(86-116) Respiratory Rate Resp: [18] SpO2 SpO2: [92 %] Intake/Output Summary (Last 24 hours) at 11/02/17 1529 Last data filed at 11/02/17 1142 Gross per 24 hour Intake 3178 ml Output 325 ml Net 2853 ml No data found. There is no height or weight on file to calculate BMI. Gen: Young M in NAD, sitting on commode HEENT: EOMI, anicteric, MMM, OP clear, no lesions/exudate. Fractured #21 molar noted on left mandibular molar but nontender, no abscess concerns. Neck: Full ROM. No JVD. Heart: RRR, Nl S1, S2. No M/R/Gs Lungs: CTAB. No rales, rhonchi, wheezes Abdo: Soft, NT, ND. NABS. Ext: No erythema, edema or asymmetry. No clubbing. Pulses 2+ throughout. Skin: No rashes/lesions Neuro: Mental Status - Unable to obtain. Non verbal. ONTIVEROS. Studies reviewed in eDH. Remarkable for the following: LABS: No results for input(s): WBC, HGB, PLATELET in the last 168 hours. Recent Labs 11/02/17 0738 11/01/17 0501 10/31/17 1019 10/28/17 0922 10/28/17 0324 NA 136 138 139 < > 137 139 K -- -- -- -- 3.7 3.7 CO2 -- -- -- -- 24 26 CL -- -- -- -- 99 99 BUN -- -- -- -- 15 16 CREATININE -- -- -- -- 0.85 0.85 CALCIUM -- -- -- -- 9.1 8.9 < > = values in this interval not displayed. No results for input(s): PROT, ALBUMIN, BILITOT, BILIDIR, AST, ALT, ALKPHOS in the last 168 hours. No results for input(s): INR, FIBRINOGEN in the last 168 hours. No results for input(s): TROPONINT, CK, LACTATE in the last 168 hours. Imaging: CT face (10/20) - IMPRESSION Multiple dental caries. Dental restorations limits resolution somewhat but no definite molar fracture can be seen. Consider Panorex of the mandible. Assessment: Mr. Miguel Angel Mason is an unfortunate 27 year old man with h/o resection of pituitary tumor complicated by interaoperative hemorrhage and CVA, cognitive impairment, cortical blindness, partial left-sided paralysis, seizure disorder and panhypopit (cDI, AI, hypothyroidism, hypogonadism) who was admitted on 09/02 with left acetabular fracture which occurred during a possible seizure. He is s/p operative repair 09/04 with course complicated by issues with sodium and fluid homeostasis when his DDAVP was stopped, but these have now resolved with restarting home DDAVP. Agitation is likely due to pain with improvement noted largely with dilaudid and robaxin, would continue to assume agitation is related to pain and continue such agitation management with dilaudid preferentially over ativan/haldol. Will also increase robaxin to 1000mg TID but consider changing to zanaflex. He is waiting for placementas he can't climb stairs (due to LLE NWB status) and his home facility has only a second floor roomfor him. However placement options have not yet been found, appreciate CM assistance. Dentist confirmed fracture of molar #21 at gingiva without evidence of acute infection. Extraction to occur in non-urgent manner pending availability but per dentist not likely anytime soon. 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, adrenal insufficiency, hypothyroidism, hypogonadism) - Appreciate endocrine assistance - Continue TID DDAVP (will appropriate hold parameters), encourage PO intake of upwards of 3.2 L asper endocrine (or 110oz) - Continue BMP q3d as UOP and serum Na have normalized - continue to monitor urinary instances closely - Continue home hydrocortisone, levothyroxine - Resume home androgel daily - Continue Calcium with Vit D # Left acetabular fracture s/p operative repair on 09/04 - NWB LLE for at least another month (through November), ok for stand pivot transfer from wheelchair perortho - dilaudid prn, but will also continue scheduled 6mg dose at night to help limit nighttime agitation that is suspected to be pain related - continue standing tylenol 1g TID - continue methocarbamol TID for muscle spasms but increase dose to 1000mg TID, consider zanaflex # Seizure disorder - continue home zonesamide 200 qhs per neuro # Fractured left lower molar: - Likely occurred with seizure - CT complete - dentist confirmed fracture of molar at gingiva without evidence of acute infection.Extraction to occur in non-urgent manner pending availability but per dentist no likely anytime soon. IV access:none Tubes/Drains:none DVT PPX: lovenox Anticipated Disposition: unclear, CM working with [place] IPI Certification I certify that I am a D-H credentialed attending provider with admitting privileges and that the patient meets or has met medical necessity to require an inpatient IPI level of care meeting a minimumof two midnights or is on the CMS inpatient only procedure list (status C) due to: the patient has met Inpatient IPI criteria and is awaiting rehabilitation or half-way facility placement withactive referrals in process Team Pager( Coverage 27/01): #[phone] PCP: NAKIA Cifuentes [phone] Isabel Donis MD 11/02/2017 * Isabel Donis MD - 11/01/2017 3:39 PM EDT Hospital Medicine Attending Daily Progress Note Admit Date: 09/02/2017 Hospital Day 60 days Active Hospital Problems Diagnosis ??? S/P ORIF left acetabulum fracture 09/04/2017 Dr. Lance ??? Postoperative anemia due to acute blood loss ??? Diabetes insipidus ??? Adrenal insufficiency ??? Panhypopituitarism ??? Seizure disorder ??? Hypothyroidism Resolved Hospital Problems Diagnosis Date Resolved No resolved problems to display. PMH Active Non-Hospital Problems Diagnosis ??? Insomnia ??? Blind ??? CVA (cerebral vascular accident) ??? Urinary incontinence Inpatient Medications: Scheduled ??? methocarbamol 1,000 mg Oral TID ??? senna-docusate 1 tablet Oral Daily ??? sodium chloride 0.9 % 5 mL Intravenous Q12H ??? melatonin 9 mg Oral Nightly ??? testosterone 5 g Transdermal Nightly ??? acetaminophen 1,000 mg Oral Q8H ??? HYDROmorphone 6 mg Oral Nightly ??? desmopressin 0.05 mg Oral 3 times per day ??? methyl salicylate-menthol Topical (Top) BID ??? calcium carbonate 500 mg Oral BID ??? cholecalciferol (Vitamin D3) 1,000 Units Oral Daily ??? hydrocortisone 20 mg Oral QAM ??? hydrocortisone 10 mg Oral Daily at Noon ??? hydrocortisone 10 mg Oral Q24H ??? enoxaparin 40 mg Subcutaneous Nightly ??? levothyroxine 150 mcg Oral QAM ??? pantoprazole 40 mg Oral QAM AC ??? QUEtiapine 250 mg Oral Nightly ??? traZODone 50 mg Oral Nightly ??? zonisamide 200 mg Oral Nightly Continuous infusions: PRN: simethicone, sodium chloride 0.9 %, lidocaine, HYDROmorphone, bisacodyl, LORazepam, haloperidol, polyethylene glycol (MIRALAX)oral powder, senna- docusate, naphazoline-pheniramine Interval History: - No acute events overnight - Some agitation, responded to ativan Subjective: Unable to provide ROS due to nonverbal state but via thumbs up sign while also indicating no abdominal pain, nausea.. Sitting on commode. Sitter remains at bedside. Physical Exam Vitals Range last 24 hrs Temperature Temp: [36.5 ??C (97.7 ??F)-36.8 ??C (98.2 ??F)] Heart Rate Heart Rate: -- Blood Pressure BP: (129-139)/(84-89) Respiratory Rate Resp: [18] SpO2 SpO2: [97 %] Intake/Output Summary (Last 24 hours) at 11/01/17 1539 Last data filed at 11/01/17 1400 Gross per 24 hour Intake 2423 ml Output 650 ml Net 1773 ml No data found. There is no height or weight on file to calculate BMI. Gen: Young M in NAD, sitting on commode HEENT: EOMI, anicteric, MMM, OP clear, no lesions/exudate. Fractured #21 molar noted on left mandibular molar but nontender, no abscess concerns. Neck: Full ROM. No JVD. Heart: RRR, Nl S1, S2. No M/R/Gs Lungs: CTAB. No rales, rhonchi, wheezes Abdo: Soft, NT, ND. NABS. Ext: No erythema, edema or asymmetry. No clubbing. Pulses 2+ throughout. Skin: No rashes/lesions Neuro: Mental Status - Unable to obtain. Non verbal. ONTIVEROS. Studies reviewed in eDH. Remarkable for the following: LABS: No results for input(s): WBC, HGB, PLATELET in the last 168 hours. Recent Labs 11/01/17 0501 10/31/17 1019 10/31/17 0637 10/28/17 0922 10/28/17 0324 NA 138 139 134* < > 137 139 K -- -- -- -- 3.7 3.7 CO2 -- -- -- -- 24 26 CL -- -- -- -- 99 99 BUN -- -- -- -- 15 16 CREATININE -- -- -- -- 0.85 0.85 CALCIUM -- -- -- -- 9.1 8.9 < > = values in this interval not displayed. No results for input(s): PROT, ALBUMIN, BILITOT, BILIDIR, AST, ALT, ALKPHOS in the last 168 hours. No results for input(s): INR, FIBRINOGEN in the last 168 hours. No results for input(s): TROPONINT, CK, LACTATE in the last 168 hours. Imaging: CT face (10/20) - IMPRESSION Multiple dental caries. Dental restorations limits resolution somewhat but no definite molar fracture can be seen. Consider Panorex of the mandible. Assessment: Mr. Miguel Angel Mason is an unfortunate 27 year old man with h/o resection of pituitary tumor complicated by interaoperative hemorrhage and CVA, cognitive impairment, cortical blindness, partial left-sided paralysis, seizure disorder and panhypopit (cDI, AI, hypothyroidism, hypogonadism) who was admitted on 09/02 with left acetabular fracture which occurred during a possible seizure. He is s/p operative repair 09/04 with course complicated by issues with sodium and fluid homeostasis when his DDAVP was stopped, but these have now resolved with restarting home DDAVP. Agitation is likely due to pain with improvement noted largely with dilaudid and robaxin, would continue to assume agitation is related to pain and continue such agitation management with dilaudid preferentially over ativan/haldol. Will also increase robaxin to 1000mg TID but consider changing to zanaflex. He is waiting for placementas he can't climb stairs (due to LLE NWB status) and his home facility has only a second floor roomfor him. However placement options have not yet been found, appreciate CM assistance. Dentist confirmed fracture of molar #21 at gingiva without evidence of acute infection. Extraction to occur in non-urgent manner pending availability but per dentist not likely anytime soon. 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, adrenal insufficiency, hypothyroidism, hypogonadism) - Appreciate endocrine assistance - Continue TID DDAVP (will appropriate hold parameters), encourage PO intake of upwards of 3.2 L asper endocrine (or 110oz) - Continue BMP q3d as UOP and serum Na have normalized - continue to monitor urinary instances closely - Continue home hydrocortisone, levothyroxine - Resume home androgel daily - Continue Calcium with Vit D # Left acetabular fracture s/p operative repair on 09/04 - NWB LLE for at least another month (through November), ok for stand pivot transfer from wheelchair perortho - dilaudid prn, but will also continue scheduled 6mg dose at night to help limit nighttime agitation that is suspected to be pain related - continue standing tylenol 1g TID - continue methocarbamol TID for muscle spasms but increase dose to 1000mg TID, consider zanaflex # Seizure disorder - continue home zonesamide 200 qhs per neuro # Fractured left lower molar: - Likely occurred with seizure - CT complete - dentist confirmed fracture of molar at gingiva without evidence of acute infection.Extraction to occur in non-urgent manner pending availability but per dentist no likely anytime soon. IV access:none Tubes/Drains:none DVT PPX: lovenox Anticipated Disposition: unclear, CM working with [place] IPI Certification I certify that I am a D-H credentialed attending provider with admitting privileges and that the patient meets or has met medical necessity to require an inpatient IPI level of care meeting a minimumof two midnights or is on the CMS inpatient only procedure list (status C) due to: the patient has met Inpatient IPI criteria and is awaiting rehabilitation or half-way facility placement withactive referrals in process Team Pager( Coverage 27/01): #[phone] PCP: NAKIA Cifuentes [phone] Isabel Donis MD 11/01/2017 * Samson Alvarez - 10/31/2017 2:55 PM EDT Outside Property Agent Encounter Note Patient Name: Miguel Angel Mason : [id number] MR#: [id number] Admit Date: 09/02/2017 9:23 PM Hospital Day 59 days Narrative: Visited to introduce and assess acceptance of Outside Property Agent services. Assessment: Patient coping positively with stresses of illness/hospitalization at this time. Mr. Huggins was there and says that Miguel Angel is slowly feeling better. 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 Intervention and Outcome:provided listening presence to care provider. Outside Property Agent services accepted.Conversation to build trusting relationship.Provided pastoral presence. Follow-up: yes Time in Direct Care:15 Mins Samson Alvarez 10/31/2017 * Ren Walters OTA - 10/31/2017 11:30 AM EDT Attempted to see pt this morning, pt currently working with PT. Will attempt again at a later time. Ren MAAY Pager: [phone] * Dillon Koch MD - 10/31/2017 7:59 AM EDT Hospital Medicine Attending Daily Progress Note Admit Date: 09/02/2017 Hospital Day 59 days Active Hospital Problems Diagnosis ??? S/P ORIF left acetabulum fracture 09/04/2017 Dr. Lance ??? Postoperative anemia due to acute blood loss ??? Diabetes insipidus ??? Adrenal insufficiency ??? Panhypopituitarism ??? Seizure disorder ??? Hypothyroidism Resolved Hospital Problems Diagnosis Date Resolved No resolved problems to display. PMH Active Non-Hospital Problems Diagnosis ??? Insomnia ??? Blind ??? CVA (cerebral vascular accident) ??? Urinary incontinence Inpatient Medications: Scheduled ??? methocarbamol 1,000 mg Oral TID ??? senna-docusate 1 tablet Oral Daily ??? sodium chloride 0.9 % 5 mL Intravenous Q12H ??? melatonin 9 mg Oral Nightly ??? testosterone 5 g Transdermal Nightly ??? acetaminophen 1,000 mg Oral Q8H ??? HYDROmorphone 6 mg Oral Nightly ??? desmopressin 0.05 mg Oral 3 times per day ??? methyl salicylate-menthol Topical (Top) BID ??? calcium carbonate 500 mg Oral BID ??? cholecalciferol (Vitamin D3) 1,000 Units Oral Daily ??? hydrocortisone 20 mg Oral QAM ??? hydrocortisone 10 mg Oral Daily at Noon ??? hydrocortisone 10 mg Oral Q24H ??? enoxaparin 40 mg Subcutaneous Nightly ??? levothyroxine 150 mcg Oral QAM ??? pantoprazole 40 mg Oral QAM AC ??? QUEtiapine 250 mg Oral Nightly ??? traZODone 50 mg Oral Nightly ??? zonisamide 200 mg Oral Nightly Continuous infusions: PRN: simethicone, sodium chloride 0.9 %, lidocaine, HYDROmorphone, bisacodyl, LORazepam, haloperidol, polyethylene glycol (MIRALAX)oral powder, senna- docusate, naphazoline-pheniramine Interval History: - Mildly agitated overnight but responsive to usual sedative. - 5 urinary occurrences recorded Subjective: Unable to provide ROS due to nonverbal state but via thumbs up sign while also indicating no abdominal pain, nausea.. Sitter remains at bedside. Physical Exam Vitals Range last 24 hrs Temperature Temp: [36.3 ??C (97.3 ??F)-36.5 ??C (97.7 ??F)] Heart Rate Heart Rate: -- Blood Pressure BP: (140-143)/(87-88) Respiratory Rate Resp: [16-20] SpO2 SpO2: [92 %-94 %] Intake/Output Summary (Last 24 hours) at 10/31/17 0759 Last data filed at 10/30/17 2112 Gross per 24 hour Intake 2058 ml Output 0 ml Net 2058 ml No data found. There is no height or weight on file to calculate BMI. Gen: Young M in NAD, lying in bed HEENT: EOMI, anicteric, MMM, OP clear, no lesions/exudate. Fractured #21 molar noted on left mandibular molar but nontender, no abscess concerns. Neck: Full ROM. No JVD. Heart: RRR, Nl S1, S2. No M/R/Gs Lungs: CTAB. No rales, rhonchi, wheezes Abdo: Soft, NT, ND. NABS. Ext: No erythema, edema or asymmetry. No clubbing. Pulses 2+ throughout. Skin: No rashes/lesions Neuro: Mental Status - Unable to obtain. Non verbal. ONTIVEROS. Studies reviewed in eDH. Remarkable for the following: LABS: No results for input(s): WBC, HGB, PLATELET in the last 168 hours. Recent Labs 10/31/17 0637 10/30/17 0353 10/29/17 0554 10/28/17 0922 10/28/17 0324 10/25/17 0316 NA 134* 135 138 137 139 < > 139 K -- -- -- 3.7 3.7 -- 3.7 CO2 -- -- -- 24 26 -- 26 CL -- -- -- 99 99 -- 100 BUN -- -- -- 15 16 -- 17 CREATININE -- -- -- 0.85 0.85 -- 0.90 CALCIUM -- -- -- 9.1 8.9 -- 9.2 < > = values in this interval not displayed. No results for input(s): PROT, ALBUMIN, BILITOT, BILIDIR, AST, ALT, ALKPHOS in the last 168 hours. No results for input(s): INR, FIBRINOGEN in the last 168 hours. No results for input(s): TROPONINT, CK, LACTATE in the last 168 hours. Imaging: CT face (10/20) - IMPRESSION Multiple dental caries. Dental restorations limits resolution somewhat but no definite molar fracture can be seen. Consider Panorex of the mandible. Assessment: Mr. Miguel Angel Mason is an unfortunate 27 year old man with h/o resection of pituitary tumor complicated by interaoperative hemorrhage and CVA, cognitive impairment, cortical blindness, partial left-sided paralysis, seizure disorder and panhypopit (cDI, AI, hypothyroidism, hypogonadism) who was admitted on 09/02 with left acetabular fracture which occurred during a possible seizure. He is s/p operative repair 09/04 with course complicated by issues with sodium and fluid homeostasis when his DDAVP was stopped, but these have now resolved with restarting home DDAVP. Agitation is likely due to pain with improvement noted largely with dilaudid and robaxin, would continue to assume agitation is related to pain and continue such agitation management with dilaudid preferentially over ativan/haldol. Will also increase robaxin to 1000mg TID but consider changing to zanaflex. He is waiting for placementas he can't climb stairs (due to LLE NWB status) and his home facility has only a second floor roomfor him. However placement options have not yet been found, appreciate CM assistance. Dentist confirmed fracture of molar #21 at gingiva without evidence of acute infection. Extraction to occur in non-urgent manner pending availability but per dentist no likely anytime soon. 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, adrenal insufficiency, hypothyroidism, hypogonadism) - Appreciate endocrine assistance - Continue TID DDAVP (will appropriate hold parameters), encourage PO intake of upwards of 3.2 L asper endocrine (or 110oz) - Continu eBMP q3d as UOP and serum Na have normalized - continue to monitor urinary instances closely - Continue home hydrocortisone, levothyroxine - Resume home androgel daily - Continue Calcium with Vit D # Left acetabular fracture s/p operative repair on 09/04 - NWB LLE for at least another month (through November), ok for stand pivot transfer from wheelchair perortho - dilaudid prn, but will also continue scheduled 6mg dose at night to help limit nighttime agitation that is suspected to be pain related - continue standing tylenol 1g TID - continue methocarbamol TID for muscle spasms but increase dose to 1000mg TID, consider zanaflex # Seizure disorder - continue home zonesamide 200 qhs per neuro # Fractured left lower molar: - Likely occurred with seizure - CT complete - dentist confirmed fracture of molar at gingiva without evidence of acute infection.Extraction to occur in non-urgent manner pending availability but per dentist no likely anytime soon. IV access:none Tubes/Drains:none DVT PPX: lovenox Anticipated Disposition: unclear, CM working with [place] IPI Certification I certify that I am a D-H credentialed attending provider with admitting privileges and that the patient meets or has met medical necessity to require an inpatient IPI level of care meeting a minimumof two midnights or is on the CMS inpatient only procedure list (status C) due to: the patient has met Inpatient IPI criteria and is awaiting rehabilitation or half-way facility placement withactive referrals in process Team Pager( Coverage 27/01): #[phone] PCP: NAKIA Cifuentes [phone] DILLON KOCH MD 10/31/2017 * Debbie Keller, DT - 10/30/2017 2:47 PM EDT Nutrition Services - Follow-up Note Miguel Angel Mason : 1990 AGE: 27 y.o. Patient Active Problem List Diagnosis Date Noted ??? *Hospital-S/P ORIF left acetabulum fracture 09/04/2017 Dr. Lance 09/02/2017 ??? Hospital-Postoperative anemia due to acute blood loss 09/04/2017 ??? Hospital-Diabetes insipidus 09/03/2017 ??? Hospital-Adrenal insufficiency 09/03/2017 ??? 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 Hospital-Seizure disorder 09/03/2017 ??? Insomnia 09/03/2017 ??? Blind 09/03/2017 ??? CVA (cerebral vascular accident) 09/03/2017 ??? Urinary incontinence 09/03/2017 ??? Hospital-Hypothyroidism 09/03/2017 Reason for Nutrition Intervention: Follow-up Diet Order: Regular Appetite: Good- per caregiver (Soila) Food allergies: NKFA Chewing/Swallowing difficulty: none noted- per caregiver (Soila) Ht Readings from Last 3 Encounters: 09/07/17 177.8 cm (5' 10) Wt Readings from Last 3 Encounters: 09/04/17 86.6 kg (191 lb) There is no height or weight on file to calculate BMI. Vitamins/Minerals: Vitamin D3, Tums noted. Assessment: Patient seen for nutrition follow up. Land Agent able to speak with pt's caregiver (Soila) on pt's nutritional care. Soila reported a good appetite without difficulty chewing or swallowing. He is tolerating current diet without nausea or vomiting. Soila stated pt consumed oj, chocolate milk, 1/2 fruit cup (still working on), home fries, 1/4 mongolian toast, sausage, and white toast. Soila stated, he was really tired this morning. He didn't sleep well last night. Nursing notes [id number] PO intake on 10/29, 10/28, + 10/27. Soila stated dietary cutting up all foods is very helpful. Will continue to provide for pt. Dietary sending menus daily for meal choices. Soila agreeable to add a pplesauce and chocolate pudding to night snack along with the carrot and celery sticks. Soila had no further questions at this time. Encouraged Soila to contact Food and Nutrition services with any questions that may arise. Nutrition will continue to follow. Nutrition Plan: Continue current diet. Cut up all foods. Recommend Daily Multi Vitamins. Added evening snacks- Carrot sticks, celery sticks, chocolate pudding, applesauce. Encourage good po intake. Monitor weight. Support and encouragement provided. Nutrition services to follow thru hospital course unless consulted in the interim. ADAM Kaur * Ren Walters OTA - 10/30/2017 1:32 PM EDT Attempted twice today to see pt but pt was sleeping heavily both attempts. Pt difficult to arouse and participate with therapy. Will attempt again at a more appropriate time. Ren MAYA Pager:[phone] * Dillon Koch MD - 10/30/2017 7:58 AM EDT Hospital Medicine Attending Daily Progress Note Admit Date: 09/02/2017 Hospital Day 58 days Active Hospital Problems Diagnosis ??? S/P ORIF left acetabulum fracture 09/04/2017 Dr. Lance ??? Postoperative anemia due to acute blood loss ??? Diabetes insipidus ??? Adrenal insufficiency ??? Panhypopituitarism ??? Seizure disorder ??? Hypothyroidism Resolved Hospital Problems Diagnosis Date Resolved No resolved problems to display. PMH Active Non-Hospital Problems Diagnosis ??? Insomnia ??? Blind ??? CVA (cerebral vascular accident) ??? Urinary incontinence Inpatient Medications: Scheduled ??? methocarbamol 1,000 mg Oral TID ??? senna-docusate 1 tablet Oral Daily ??? sodium chloride 0.9 % 5 mL Intravenous Q12H ??? melatonin 9 mg Oral Nightly ??? testosterone 5 g Transdermal Nightly ??? acetaminophen 1,000 mg Oral Q8H ??? HYDROmorphone 6 mg Oral Nightly ??? desmopressin 0.05 mg Oral 3 times per day ??? methyl salicylate-menthol Topical (Top) BID ??? calcium carbonate 500 mg Oral BID ??? cholecalciferol (Vitamin D3) 1,000 Units Oral Daily ??? hydrocortisone 20 mg Oral QAM ??? hydrocortisone 10 mg Oral Daily at Noon ??? hydrocortisone 10 mg Oral Q24H ??? enoxaparin 40 mg Subcutaneous Nightly ??? levothyroxine 150 mcg Oral QAM ??? pantoprazole 40 mg Oral QAM AC ??? QUEtiapine 250 mg Oral Nightly ??? traZODone 50 mg Oral Nightly ??? zonisamide 200 mg Oral Nightly Continuous infusions: PRN: simethicone, sodium chloride 0.9 %, lidocaine, HYDROmorphone, bisacodyl, LORazepam, haloperidol, polyethylene glycol (MIRALAX)oral powder, senna- docusate, naphazoline-pheniramine Interval History: - Agitated overnight, required an additional ativan on top of usual usual ativan/ dilaudid. Staff suspects muscles spasms were problematic despite robaxin 750mg. Subjective: Unable to provide ROS due to nonverbal state but via thumbs up sign indicated no abdominal pain, nausea, eager for breakfast this AM with no concerns for appetite yesterday. Sitter remains at bedside. Physical Exam Vitals Range last 24 hrs Temperature Temp: [35.5 ??C (95.9 ??F)-36.4 ??C (97.5 ??F)] Heart Rate Heart Rate: -- Blood Pressure BP: (126-150)/(91-114) Respiratory Rate Resp: [17-18] SpO2 SpO2: [93 %-98 %] Intake/Output Summary (Last 24 hours) at 10/30/17 0758 Last data filed at 10/30/17 0647 Gross per 24 hour Intake 1712 ml Output 750 ml Net 962 ml No data found. There is no height or weight on file to calculate BMI. Gen: Young M in NAD, lying in bed HEENT: EOMI, anicteric, MMM, OP clear, no lesions/exudate. Fractured #21 molar noted on left mandibular molar but nontender, no abscess concerns. Neck: Full ROM. No JVD. Heart: RRR, Nl S1, S2. No M/R/Gs Lungs: CTAB. No rales, rhonchi, wheezes Abdo: Soft, NT, ND. NABS. Ext: No erythema, edema or asymmetry. No clubbing. Pulses 2+ throughout. Skin: No rashes/lesions Neuro: Mental Status - Unable to obtain. Non verbal. ONTIVEROS. Studies reviewed in eDH. Remarkable for the following: LABS: No results for input(s): WBC, HGB, PLATELET in the last 168 hours. Recent Labs 10/30/17 0353 10/29/17 0554 10/28/17 0922 10/28/17 0324 10/25/17 0316 NA 135 138 137 139 < > 139 K -- -- 3.7 3.7 -- 3.7 CO2 -- -- 24 26 -- 26 CL -- -- 99 99 -- 100 BUN -- -- 15 16 -- 17 CREATININE -- -- 0.85 0.85 -- 0.90 CALCIUM -- -- 9.1 8.9 -- 9.2 < > = values in this interval not displayed. No results for input(s): PROT, ALBUMIN, BILITOT, BILIDIR, AST, ALT, ALKPHOS in the last 168 hours. No results for input(s): INR, FIBRINOGEN in the last 168 hours. No results for input(s): TROPONINT, CK, LACTATE in the last 168 hours. Imaging: CT face (10/20) - IMPRESSION Multiple dental caries. Dental restorations limits resolution somewhat but no definite molar fracture can be seen. Consider Panorex of the mandible. Assessment: Mr. Miguel Angel Mason is an unfortunate 27 year old man with h/o resection of pituitary tumor complicated by interaoperative hemorrhage and CVA, cognitive impairment, cortical blindness, partial left-sided paralysis, seizure disorder and panhypopit (cDI, AI, hypothyroidism, hypogonadism) who was admitted on 09/02 with left acetabular fracture which occurred during a possible seizure. He is s/p operative repair 09/04 with course complicated by issues with sodium and fluid homeostasis when his DDAVP was stopped, but these have now resolved with restarting home DDAVP. Agitation is likely due to pain with improvement noted largely with dilaudid and robaxin, would continue to assume agitation is related to pain and continue such agitation management with dilaudid preferentially over ativan/haldol. Will also increase robaxin to 1000mg TID but consider changing to zanaflex. He is waiting for placementas he can't climb stairs (due to LLE NWB status) and his home facility has only a second floor roomfor him. However placement options have not yet been found, appreciate CM assistance. Dentist confirmed fracture of molar #21 at gingiva without evidence of acute infection. Extraction to occur in non-urgent manner pending availability but per dentist no likely anytime soon. 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, adrenal insufficiency, hypothyroidism, hypogonadism) - Appreciate endocrine assistance - Continue TID DDAVP (will appropriate hold parameters), encourage PO intake of upwards of 3.2 L asper endocrine (or 110oz) - Continu eBMP q3d as UOP and serum Na have normalized - continue to monitor urinary instances closely - Continue home hydrocortisone, levothyroxine - Resume home androgel daily - Continue Calcium with Vit D # Left acetabular fracture s/p operative repair on 09/04 - NWB LLE for at least another month (through November), ok for stand pivot transfer from wheelchair perortho - dilaudid prn, but will also continue scheduled 6mg dose at night to help limit nighttime agitation that is suspected to be pain related - continue standing tylenol 1g TID - continue methocarbamol TID for muscle spasms but increase dose to 1000mg TID, consider zanaflex # Seizure disorder - continue home zonesamide 200 qhs per neuro # Fractured left lower molar: - Likely occurred with seizure - CT complete - dentist confirmed fracture of molar at gingiva without evidence of acute infection.Extraction to occur in non-urgent manner pending availability but per dentist no likely anytime soon. IV access:none Tubes/Drains:none DVT PPX: lovenox Anticipated Disposition: unclear, CM working with [place] IPI Certification I certify that I am a D-H credentialed attending provider with admitting privileges and that the patient meets or has met medical necessity to require an inpatient IPI level of care meeting a minimumof two midnights or is on the CMS inpatient only procedure list (status C) due to: the patient has met Inpatient IPI criteria and is awaiting rehabilitation or half-way facility placement withactive referrals in process Team Pager( Coverage 27/01): #[phone] PCP: NAKIA Cifuentes [phone] DILLON KOCH MD 10/30/2017 * Dillon Koch MD - 10/29/2017 7:43 AM EDT Hospital Medicine Attending Daily Progress Note Admit Date: 09/02/2017 Hospital Day 57 days Active Hospital Problems Diagnosis ??? S/P ORIF left acetabulum fracture 09/04/2017 Dr. Lance ??? Postoperative anemia due to acute blood loss ??? Diabetes insipidus ??? Adrenal insufficiency ??? Panhypopituitarism ??? Seizure disorder ??? Hypothyroidism Resolved Hospital Problems Diagnosis Date Resolved No resolved problems to display. PMH Active Non-Hospital Problems Diagnosis ??? Insomnia ??? Blind ??? CVA (cerebral vascular accident) ??? Urinary incontinence Inpatient Medications: Scheduled ??? methocarbamol 750 mg Oral TID ??? senna-docusate 1 tablet Oral Daily ??? sodium chloride 0.9 % 5 mL Intravenous Q12H ??? melatonin 9 mg Oral Nightly ??? testosterone 5 g Transdermal Nightly ??? acetaminophen 1,000 mg Oral Q8H ??? HYDROmorphone 6 mg Oral Nightly ??? desmopressin 0.05 mg Oral 3 times per day ??? methyl salicylate-menthol Topical (Top) BID ??? calcium carbonate 500 mg Oral BID ??? cholecalciferol (Vitamin D3) 1,000 Units Oral Daily ??? hydrocortisone 20 mg Oral QAM ??? hydrocortisone 10 mg Oral Daily at Noon ??? hydrocortisone 10 mg Oral Q24H ??? enoxaparin 40 mg Subcutaneous Nightly ??? levothyroxine 150 mcg Oral QAM ??? pantoprazole 40 mg Oral QAM AC ??? QUEtiapine 250 mg Oral Nightly ??? traZODone 50 mg Oral Nightly ??? zonisamide 200 mg Oral Nightly Continuous infusions: PRN: simethicone, sodium chloride 0.9 %, lidocaine, HYDROmorphone, bisacodyl, LORazepam, haloperidol, polyethylene glycol (MIRALAX)oral powder, senna- docusate, naphazoline-pheniramine Interval History: - No acute events overnight aside from typical mild agitation but responded to usual ativan/ dilaudid. Mild increase in Robaxin ordered overnight as muscle cramps persisted. Continues to eat well. Subjective: Unable to provide ROS due to nonverbal state but via thumbs up sign indicated no abdominal pain, nausea, eager for breakfast this AM with no concerns for appetite yesterday. Sitter remains at bedside. Physical Exam Vitals Range last 24 hrs Temperature Temp: [36.6 ??C (97.9 ??F)-37 ??C (98.6 ??F)] Heart Rate Heart Rate: -- Blood Pressure BP: (138-152)/(99-105) Respiratory Rate Resp: [17-18] SpO2 SpO2: [91 %-97 %] Intake/Output Summary (Last 24 hours) at 10/29/17 0743 Last data filed at 10/28/17 2208 Gross per 24 hour Intake 1734 ml Output 0 ml Net 1734 ml No data found. There is no height or weight on file to calculate BMI. Gen: Young M in NAD, lying in bed HEENT: EOMI, anicteric, MMM, OP clear, no lesions/exudate. Fractured #21 molar noted on left mandibular molar but nontender, no abscess concerns. Neck: Full ROM. No JVD. Heart: RRR, Nl S1, S2. No M/R/Gs Lungs: CTAB. No rales, rhonchi, wheezes Abdo: Soft, NT, ND. NABS. Ext: No erythema, edema or asymmetry. No clubbing. Pulses 2+ throughout. Skin: No rashes/lesions Neuro: Mental Status - Unable to obtain. Non verbal. ONTIVEROS. Studies reviewed in eDH. Remarkable for the following: LABS: No results for input(s): WBC, HGB, PLATELET in the last 168 hours. Recent Labs 10/28/17 0922 10/28/17 0324 10/27/17 0616 10/25/17 0316 NA 137 139 140 139 K 3.7 3.7 -- 3.7 CO2 24 26 -- 26 CL 99 99 -- 100 BUN 15 16 -- 17 CREATININE 0.85 0.85 -- 0.90 CALCIUM 9.1 8.9 -- 9.2 No results for input(s): PROT, ALBUMIN, BILITOT, BILIDIR, AST, ALT, ALKPHOS in the last 168 hours. No results for input(s): INR, FIBRINOGEN in the last 168 hours. No results for input(s): TROPONINT, CK, LACTATE in the last 168 hours. Imaging: CT face (10/20) - IMPRESSION Multiple dental caries. Dental restorations limits resolution somewhat but no definite molar fracture can be seen. Consider Panorex of the mandible. Assessment: Mr. Miguel Angel Mason is an unfortunate 27 year old man with h/o resection of pituitary tumor complicated by interaoperative hemorrhage and CVA, cognitive impairment, cortical blindness, partial left-sided paralysis, seizure disorder and panhypopit (cDI, AI, hypothyroidism, hypogonadism) who was admitted on 09/02 with left acetabular fracture which occurred during a possible seizure. He is s/p operative repair 09/04 with course complicated by issues with sodium and fluid homeostasis when his DDAVP was stopped, but these have now resolved with restarting home DDAVP. Agitation is likely due to pain with improvement noted largely with dilaudid, would continue to assume agitation is related to pain and continue such agitation management with dilaudid preferentially over ativan/haldol. He is waiting for placement as he can't climb stairs (due to LLE NWB status) and his home facility has only a second floor room for him. However placement options have not yet been found, appreciate CM assistance. Dentist confirmed fracture of molar #21 at gingiva without evidence of acute infection. Extraction tooccur in non-urgent manner pending availability but per dentist no likely anytime soon. 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, adrenal insufficiency, hypothyroidism, hypogonadism) - Appreciate endocrine assistance - Continue TID DDAVP (will appropriate hold parameters), encourage PO intake of upwards of 3.2 L asper endocrine (or 110oz) - Continu eBMP q3d as UOP and serum Na have normalized - continue to monitor urinary instances closely - Continue home hydrocortisone, levothyroxine - Resume home androgel daily - Continue Calcium with Vit D # Left acetabular fracture s/p operative repair on 09/04 - NWB LLE for at least another month (through November), ok for stand pivot transfer from wheelchair perortho - dilaudid prn, but will also continue scheduled 6mg dose at night to help limit nighttime agitation that is suspected to be pain related - continue standing tylenol 1g TID - continue methocarbamol TID for muscle spasms # Seizure disorder - continue home zonesamide 200 qhs per neuro # Fractured left lower molar: - Likely occurred with seizure - CT complete - dentist confirmed fracture of molar at gingiva without evidence of acute infection.Extraction to occur in non-urgent manner pending availability but per dentist no likely anytime soon. IV access:none Tubes/Drains:none DVT PPX: lovenox Anticipated Disposition: unclear, CM working with [place] IPI Certification I certify that I am a D-H credentialed attending provider with admitting privileges and that the patient meets or has met medical necessity to require an inpatient IPI level of care meeting a minimumof two midnights or is on the CMS inpatient only procedure list (status C) due to: the patient has met Inpatient IPI criteria and is awaiting rehabilitation or half-way facility placement withactive referrals in process Team Pager( Coverage 27/01): #[phone] PCP: NAKIA Cifuentes [phone] DILLON KOCH MD 10/29/2017 * Dillon Koch MD - 10/28/2017 7:52 AM EDT Hospital Medicine Attending Daily Progress Note Admit Date: 09/02/2017 Hospital Day 56 days Active Hospital Problems Diagnosis ??? S/P ORIF left acetabulum fracture 09/04/2017 Dr. Lance ??? Postoperative anemia due to acute blood loss ??? Diabetes insipidus ??? Adrenal insufficiency ??? Panhypopituitarism ??? Seizure disorder ??? Hypothyroidism Resolved Hospital Problems Diagnosis Date Resolved No resolved problems to display. PMH Active Non-Hospital Problems Diagnosis ??? Insomnia ??? Blind ??? CVA (cerebral vascular accident) ??? Urinary incontinence Inpatient Medications: Scheduled ??? methocarbamol 500 mg Oral TID ??? senna-docusate 1 tablet Oral Daily ??? sodium chloride 0.9 % 5 mL Intravenous Q12H ??? melatonin 9 mg Oral Nightly ??? testosterone 5 g Transdermal Nightly ??? acetaminophen 1,000 mg Oral Q8H ??? HYDROmorphone 6 mg Oral Nightly ??? desmopressin 0.05 mg Oral 3 times per day ??? methyl salicylate-menthol Topical (Top) BID ??? calcium carbonate 500 mg Oral BID ??? cholecalciferol (Vitamin D3) 1,000 Units Oral Daily ??? hydrocortisone 20 mg Oral QAM ??? hydrocortisone 10 mg Oral Daily at Noon ??? hydrocortisone 10 mg Oral Q24H ??? enoxaparin 40 mg Subcutaneous Nightly ??? levothyroxine 150 mcg Oral QAM ??? pantoprazole 40 mg Oral QAM AC ??? QUEtiapine 250 mg Oral Nightly ??? traZODone 50 mg Oral Nightly ??? zonisamide 200 mg Oral Nightly Continuous infusions: PRN: simethicone, sodium chloride 0.9 %, lidocaine, HYDROmorphone, bisacodyl, LORazepam, haloperidol, polyethylene glycol (MIRALAX)oral powder, senna- docusate, naphazoline-pheniramine Interval History: - No acute events overnight aside from typical mild agitation but responded to usual ativan/ dilaudid. Continues to eat well. Subjective: Unable to provide ROS due to nonverbal state. Sitter at bedside. Physical Exam Vitals Range last 24 hrs Temperature Temp: [36.3 ??C (97.3 ??F)-36.7 ??C (98.1 ??F)] Heart Rate Heart Rate: [105] Blood Pressure BP: (151-157)/(105-107) Respiratory Rate Resp: [17-18] SpO2 SpO2: [95 %-97 %] Intake/Output Summary (Last 24 hours) at 10/28/17 0752 Last data filed at 10/28/17 0722 Gross per 24 hour Intake 3500 ml Output 200 ml Net 3300 ml No data found. There is no height or weight on file to calculate BMI. Gen: Young M in NAD, lying in bed HEENT: EOMI, anicteric, MMM, OP clear, no lesions/exudate. Fractured #21 molar noted on left mandibular molar but nontender, no abscess concerns. Neck: Full ROM. No JVD. Heart: RRR, Nl S1, S2. No M/R/Gs Lungs: CTAB. No rales, rhonchi, wheezes Abdo: Soft, NT, ND. NABS. Ext: No erythema, edema or asymmetry. No clubbing. Pulses 2+ throughout. Skin: No rashes/lesions Neuro: Mental Status - Unable to obtain. Non verbal. ONTIVEROS. Studies reviewed in eDH. Remarkable for the following: LABS: Recent Labs 10/22/17 0502 WBC 6.6 HGB 12.9* PLATELET 339 Recent Labs 10/28/17 0324 10/27/17 0616 10/25/17 0316 10/22/17 0502 NA 139 140 139 141 K 3.7 -- 3.7 4.0 CO2 26 -- 26 22 CL 99 -- 100 103 BUN 16 -- 17 11 CREATININE 0.85 -- 0.90 0.74* CALCIUM 8.9 -- 9.2 9.2 No results for input(s): PROT, ALBUMIN, BILITOT, BILIDIR, AST, ALT, ALKPHOS in the last 168 hours. No results for input(s): INR, FIBRINOGEN in the last 168 hours. No results for input(s): TROPONINT, CK, LACTATE in the last 168 hours. Imaging: CT face (10/20) - IMPRESSION Multiple dental caries. Dental restorations limits resolution somewhat but no definite molar fracture can be seen. Consider Panorex of the mandible. Assessment: Mr. Miguel Angel Mason is an unfortunate 27 year old man with h/o resection of pituitary tumor complicated by interaoperative hemorrhage and CVA, cognitive impairment, cortical blindness, partial left-sided paralysis, seizure disorder and panhypopit (cDI, AI, hypothyroidism, hypogonadism) who was admitted on 09/02 with left acetabular fracture which occurred during a possible seizure. He is s/p operative repair 3/1 with course complicated by issues with sodium and fluid homeostasis when his DDAVP was stopped, but these have now resolved with restarting home DDAVP. Agitation is likely due to pain with improvement noted largely with dilaudid, would continue to assume agitation is related to pain and continue such agitation management with dilaudid preferentially over ativan/haldol. He is waiting for placement as he can't climb stairs (due to LLE NWB status) and his home facility has only a second floor room for him. However placement options have not yet been found, appreciate CM assistance. Dentist confirmed fracture of molar #21 at gingiva without evidence of acute infection. Extraction tooccur in non-urgent manner pending availability but per dentist no likely anytime soon. 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, adrenal insufficiency, hypothyroidism, hypogonadism) - Appreciate endocrine assistance - Continue TID DDAVP (will appropriate hold parameters), encourage PO intake of upwards of 3.2 L asper endocrine (or 110oz) - Decrease BMP to q3d as UOP and serum Na have normalized - Continue home hydrocortisone, levothyroxine - Resume home androgel daily - Continue Calcium with Vit D # Left acetabular fracture s/p operative repair on 09/04 - NWB LLE for at least another month (through November), ok for stand pivot transfer from wheelchair perortho - dilaudid prn, but will also continue scheduled 6mg dose at night to help limit nighttime agitation that is suspected to be pain related - continue standing tylenol 1g TID - continue methocarbamol TID for muscle spasms # Seizure disorder - continue home zonesamide 200 qhs per neuro # Fractured left lower molar: - Likely occurred with seizure - CT complete - dentist confirmed fracture of molar at gingiva without evidence of acute infection.Extraction to occur in non-urgent manner pending availability but per dentist no likely anytime soon. IV access:none Tubes/Drains:none DVT PPX: lovenox Anticipated Disposition: unclear, LUCAS working with [place] IPI Certification I certify that I am a D-H credentialed attending provider with admitting privileges and that the patient meets or has met medical necessity to require an inpatient IPI level of care meeting a minimumof two midnights or is on the [facility] inpatient only procedure list (status C) due to: the patient has met Inpatient IPI criteria and is awaiting rehabilitation or half-way facility placement withactive referrals in process Team Pager( Coverage 27/01): #[phone] PCP: NAKIA Cifuentes [phone] DILLON KOCH MD 10/28/2017 * Skyla Aranda MD - 10/28/2017 7:50 AM EDT Orthopaedic Surgery Progress Note Surgery/Issue: ORIF left acetabulum Attending: Dr. Lance Date of surgery: 09/04/2017 Subjective/Events: JAMAL over the past week. Doing very well this morning and was sleeping when arrived. He slept peacefully throughout the evening with not acute issues. Dental Surgery was consulted and confirmed a fracture of left lower molar, most likely secondary to seizure, however, no active signs of infection and nothing to do acutely for this tooth. The patient was started on robaxin for muscle spasms yesterday. He was also OOB to wheelchair and was seen locally around the unit. Objcetive: Temp: [36.3 ??C (97.3 ??F)-36.7 ??C (98.1 ??F)] Heart Rate: [105] Resp: [17-18] BP: (151-157)/(105-107) Intake/Output Summary (Last 24 hours) at 10/28/17 0750 Last data filed at 10/28/17 0722 Gross per 24 hour Intake 3500 ml Output 200 ml Net 3300 ml Lab Results Component Value Date NA 139 10/28/2017 K 3.7 10/28/2017 CL 99 10/28/2017 CO2 26 10/28/2017 BUN 16 10/28/2017 CREATININE 0.85 10/28/2017 GLUCOSE 92 10/19/2017 GLUCFASTING 82 10/28/2017 CALCIUM 8.9 10/28/2017 Lab Results Component Value Date WBC 6.6 10/22/2017 HGB 12.9 (L) 10/22/2017 HCT 40.5 10/22/2017 MCV 80.0 (L) 10/22/2017 PLATELET 339 10/22/2017 Lab Results Component Value Date INR 1.1 09/03/2017 Exam: General: comfortable, resting in bed with sheet covering body; resting comfortably this morning. CV: RRR Resp: no increased work of breathing LLE: Anterior pelvic and left lower abdominal incisions c/d/i. Abdomen soft, non tender, no ecchymoses Unable to assess motor/sensory - formally but moving all 4 extremities in the bed Palpable DP/PT Imaging: XR pelvis IMPRESSION Unchanged osseous alignment. Difficult to identify interval callus formation/healing. No equipment complication seen. XR Judet IMPRESSION Stable bony alignment. Stable position internal fixation device. No appreciable overlying sclerosisor bony callus. ?? A/P: 27 y.o. male s/p ORIF left acetabular fx on 09/04/17. Progressing well post operatively. Furthercare per medicine, dental, and CM/SW for placement. He had his 6 week follow up two weeks ago with unchanged images of his injuries, early signs of healing noted. Weight bearing status stays the same, at least NWB LLE until mid to late November. Continue OOB with PT/OT and nursing. Activity: NWB LLE, OK for stand pivot transfer on right leg only DVT prophylaxis: lovenox Closure: carisa are removed Dressings: may leave open to air now Follow up: to be re-tasked at discharge - please page #[phone] prior to discharge so follow up can be arranged. Skyla Aranda MD, PGY-1 Orthopaedic Surgery Pager #: [phone] Future Appointments Date Time Provider Department Center 11/21/2017 10:45 AM [facility] DX ROOM 2 [facility] 11/21/2017 11:40 AM Amy Lance MD [facility] Associated attestation - Amy Lance MD - 10/30/2017 1:31 PM EDT Patient seen and examined. Agree with resident note. Mandy Lance MD Department of Orthopaedics 10/30/17 * Dillon Koch MD - 10/27/2017 8:02 AM EDT Hospital Medicine Attending Daily Progress Note Admit Date: 09/02/2017 Hospital Day 55 days Active Hospital Problems Diagnosis ??? S/P ORIF left acetabulum fracture 09/04/2017 Dr. Lance ??? Postoperative anemia due to acute blood loss ??? Diabetes insipidus ??? Adrenal insufficiency ??? Panhypopituitarism ??? Seizure disorder ??? Hypothyroidism Resolved Hospital Problems Diagnosis Date Resolved No resolved problems to display. PMH Active Non-Hospital Problems Diagnosis ??? Insomnia ??? Blind ??? CVA (cerebral vascular accident) ??? Urinary incontinence Inpatient Medications: Scheduled ??? methocarbamol 500 mg Oral TID ??? senna-docusate 1 tablet Oral Daily ??? sodium chloride 0.9 % 5 mL Intravenous Q12H ??? melatonin 9 mg Oral Nightly ??? testosterone 5 g Transdermal Nightly ??? acetaminophen 1,000 mg Oral Q8H ??? HYDROmorphone 6 mg Oral Nightly ??? desmopressin 0.05 mg Oral 3 times per day ??? methyl salicylate-menthol Topical (Top) BID ??? calcium carbonate 500 mg Oral BID ??? cholecalciferol (Vitamin D3) 1,000 Units Oral Daily ??? hydrocortisone 20 mg Oral QAM ??? hydrocortisone 10 mg Oral Daily at Noon ??? hydrocortisone 10 mg Oral Q24H ??? enoxaparin 40 mg Subcutaneous Nightly ??? levothyroxine 150 mcg Oral QAM ??? pantoprazole 40 mg Oral QAM AC ??? QUEtiapine 250 mg Oral Nightly ??? traZODone 50 mg Oral Nightly ??? zonisamide 200 mg Oral Nightly Continuous infusions: PRN: simethicone, sodium chloride 0.9 %, lidocaine, HYDROmorphone, bisacodyl, LORazepam, haloperidol, polyethylene glycol (MIRALAX)oral powder, senna- docusate, naphazoline-pheniramine Interval History: - No acute events overnight aside from typical mild agitation but responded to usual ativan/ dilaudid Subjective: Unable to provide ROS due to nonverbal state. Sitter at bedside. Physical Exam Vitals Range last 24 hrs Temperature Temp: [36.4 ??C (97.5 ??F)-36.6 ??C (97.9 ??F)] Heart Rate Heart Rate: [76-91] Blood Pressure BP: (141-150)/(75-100) Respiratory Rate Resp: [15-16] SpO2 SpO2: [97 %-100 %] Intake/Output Summary (Last 24 hours) at 10/27/17 0802 Last data filed at 10/27/17 0659 Gross per 24 hour Intake 2040 ml Output 0 ml Net 2040 ml No data found. There is no height or weight on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, adrenal insufficiency, hypothyroidism, hypogonadism) - Appreciate endocrine assistance - Continue TID DDAVP (will appropriate hold parameters), encourage PO intake of upwards of 3.2 L asper endocrine (or 110oz) - Decrease BMP to daily as UOP and serum Na have normalized - Continue home hydrocortisone, levothyroxine - Resume home androgel daily - Continue Calcium with Vit D # Left acetabular fracture s/p operative repair on 09/04 - NWB LLE for at least another month (through November), ok for stand pivot transfer from wheelchair perortho - dilaudid prn, but will also continue scheduled 6mg dose at night to help limit nighttime agitation that is suspected to be pain related - will also start standing tylenol 1g TID - Trial of methocarbamol TID for muscle spasms # Seizure disorder - continue home zonesamide 200 qhs per neuro # Fractured left lower molar: - Likely occurred with seizure - CT complete - dentist confirmed fracture of molar at gingiva without evidence of acute infection. IV access:none Tubes/Drains:none DVT PPX: lovenox Anticipated Disposition: unclear, CM working with [place] IPI Certification I certify that I am a D-H credentialed attending provider with admitting privileges and that the patient meets or has met medical necessity to require an inpatient IPI level of care meeting a minimumof two midnights or is on the CMS inpatient only procedure list (status C) due to: the patient has met Inpatient IPI criteria and is awaiting rehabilitation or half-way facility placement withactive referrals in process Team Pager( Coverage 27/01): #[phone] PCP: NAKIA Cifuentes [phone] Isabel Donis MD 10/24/2017 * Isabel Donis MD - 10/23/2017 4:10 PM EDT Hospital Medicine Attending Daily Progress Note Admit Date: 09/02/2017 Hospital Day 51 days Active Hospital Problems Diagnosis ??? S/P ORIF left acetabulum fracture 09/04/2017 Dr. Lance ??? Postoperative anemia due to acute blood loss ??? Diabetes insipidus ??? Adrenal insufficiency ??? Panhypopituitarism ??? Seizure disorder ??? Hypothyroidism Resolved Hospital Problems Diagnosis Date Resolved No resolved problems to display. PMH Active Non-Hospital Problems Diagnosis ??? Insomnia ??? Blind ??? CVA (cerebral vascular accident) ??? Urinary incontinence Inpatient Medications: Scheduled ??? sodium chloride 0.9 % 5 mL Intravenous Q12H ??? melatonin 9 mg Oral Nightly ??? testosterone 5 g Transdermal Nightly ??? acetaminophen 1,000 mg Oral Q8H ??? HYDROmorphone 6 mg Oral Nightly ??? desmopressin 0.05 mg Oral 3 times per day ??? methyl salicylate-menthol Topical (Top) BID ??? calcium carbonate 500 mg Oral BID ??? cholecalciferol (Vitamin D3) 1,000 Units Oral Daily ??? hydrocortisone 20 mg Oral QAM ??? hydrocortisone 10 mg Oral Daily at Noon ??? hydrocortisone 10 mg Oral Q24H ??? enoxaparin 40 mg Subcutaneous Nightly ??? levothyroxine 150 mcg Oral QAM ??? pantoprazole 40 mg Oral QAM AC ??? QUEtiapine 250 mg Oral Nightly ??? traZODone 50 mg Oral Nightly ??? zonisamide 200 mg Oral Nightly Continuous infusions: PRN: methocarbamol, sodium chloride 0.9 %, lidocaine, HYDROmorphone, bisacodyl, LORazepam, haloperidol, polyethylene glycol (MIRALAX)oral powder, senna- docusate, naphazoline-pheniramine Interval History: - No acute events overnight - Na stable Subjective: Unable to provide ROS due to nonverbal state. Gives thumbs up. Sister at bedside. Experience musclespasms while in chair, significant pain. Physical Exam Vitals Range last 24 hrs Temperature Temp: [36.5 ??C (97.7 ??F)-36.8 ??C (98.2 ??F)] Heart Rate Heart Rate: -- Blood Pressure BP: (139-141)/(99-102) Respiratory Rate Resp: [17-18] SpO2 SpO2: [95 %-97 %] Intake/Output Summary (Last 24 hours) at 10/23/17 1610 Last data filed at 10/23/17 1500 Gross per 24 hour Intake 1180 ml Output 0 ml Net 1180 ml No data found. There is no height or weight on file to calculate BMI. Gen: Young M in NAD, lying in bed HEENT: EOMI, anicteric, MMM, OP clear, no lesions/exudate. Fractured #21 molar noted on left mandibular molar but nontender, no abscess concerns. Neck: Full ROM. No JVD. Heart: RRR, Nl S1, S2. No M/R/Gs Lungs: CTAB. No rales, rhonchi, wheezes Abdo: Soft, NT, ND. NABS. Ext: No erythema, edema or asymmetry. No clubbing. Pulses 2+ throughout. Skin: No rashes/lesions Neuro: Mental Status - Unable to obtain. Non verbal. ONTIVEROS. Studies reviewed in eDH. Remarkable for the following: LABS: Recent Labs 10/22/17 0502 WBC 6.6 HGB 12.9* PLATELET 339 Recent Labs 10/22/17 0502 10/21/17 0403 10/19/17 0955 NA 141 134* 141 K 4.0 4.3 3.8 CO2 22 23 23 CL 103 95* 101 BUN 11 16 16 CREATININE 0.74* 0.91 0.98 CALCIUM 9.2 9.5 9.1 No results for input(s): PROT, ALBUMIN, BILITOT, BILIDIR, AST, ALT, ALKPHOS in the last 168 hours. No results for input(s): INR, FIBRINOGEN in the last 168 hours. No results for input(s): TROPONINT, CK, LACTATE in the last 168 hours. Imaging: CT face (10/20) - IMPRESSION Multiple dental caries. Dental restorations limits resolution somewhat but no definite molar fracture can be seen. Consider Panorex of the mandible. Assessment: Mr. Miguel Angel Mason is an unfortunate 27 year old man with h/o resection of pituitary tumor complicated by interaoperative hemorrhage and CVA, cognitive impairment, cortical blindness, partial left-sided paralysis, seizure disorder and panhypopit (cDI, AI, hypothyroidism, hypogonadism) who was admitted on 09/02 with left acetabular fracture which occurred during a possible seizure. He is s/p operative repair 09/04 with course complicated by issues with sodium and fluid homeostasis when his DDAVP was stopped, but these have now resolved with restarting home DDAVP. Agitation is likely due to pain with improvement noted largely with dilaudid, would continue to assume agitation is related to pain and continue such agitation management with dilaudid preferentially over ativan/haldol. He is waiting for placement as he can't climb stairs (due to LLE NWB status) and his home facility has only a second floor room for him. However placement options have not yet been found, appreciate CM assistance. Dentist confirmed fracture of molar #21 at gingiva without evidence of acute infection. Will attempt to arrange extraction in non-urgent manner pending availability. 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, adrenal insufficiency, hypothyroidism, hypogonadism) - Appreciate endocrine assistance - Continue TID DDAVP (will appropriate hold parameters), encourage PO intake of upwards of 3.2 L asper endocrine (or 110oz) - Decrease BMP to daily as UOP and serum Na have normalized - Continue home hydrocortisone, levothyroxine - Resume home androgel daily - Continue Calcium with Vit D # Left acetabular fracture s/p operative repair on 09/04 - NWB LLE for at least another month (through November), ok for stand pivot transfer from wheelchair perortho - dilaudid prn, but will also continue scheduled 6mg dose at night to help limit nighttime agitation that is suspected to be pain related - will also start standing tylenol 1g TID - Trial of methocarbamol QID PRN for muscle spasms # Seizure disorder - continue home zonesamide 200 qhs per neuro # Fractured left lower molar: - Likely occurred with seizure - CT complete - dentist confirmed fracture of molar at gingiva without evidence of acute infection. IV access:none Tubes/Drains:none DVT PPX: lovenox Anticipated Disposition: unclear, CM working with [place] IPI Certification I certify that I am a D-H credentialed attending provider with admitting privileges and that the patient meets or has met medical necessity to require an inpatient IPI level of care meeting a minimumof two midnights or is on the CMS inpatient only procedure list (status C) due to: the patient has met Inpatient IPI criteria and is awaiting rehabilitation or half-way facility placement withactive referrals in process Team Pager( Coverage 27/01): #[phone] PCP: NAKIA Cifuentes [phone] Isabel Donis MD 10/23/2017 * Krishna Debbie Ramone, DT - 10/23/2017 2:42 PM EDT Nutrition Services - Follow-up Note Miguel Angel Mason : 1990 AGE: 27 y.o. Patient Active Problem List Diagnosis Date Noted ??? *Hospital-S/P ORIF left acetabulum fracture 09/04/2017 Dr. Lance 09/02/2017 ??? Hospital-Postoperative anemia due to acute blood loss 09/04/2017 ??? Hospital-Diabetes insipidus 09/03/2017 ??? Hospital-Adrenal insufficiency 09/03/2017 ??? 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 Hospital-Seizure disorder 09/03/2017 ??? Insomnia 09/03/2017 ??? Blind 09/03/2017 ??? CVA (cerebral vascular accident) 09/03/2017 ??? Urinary incontinence 09/03/2017 ??? Hospital-Hypothyroidism 09/03/2017 Reason for Nutrition Intervention: Follow-up Diet Order: Regular Appetite: Good- per nursing Food allergies: NKFA Chewing/Swallowing difficulty: none noted- per nursing Ht Readings from Last 3 Encounters: 09/07/17 177.8 cm (5' 10) Wt Readings from Last 3 Encounters: 09/04/17 86.6 kg (191 lb) There is no height or weight on file to calculate BMI. Vitamins/Minerals: Vitamin D3, Tums noted. Assessment: Patient pt seen for nutrition follow up. Land Agent able to speak with nursing on pt's nutritional care. Nursing reported a good appetite today without any difficulty chewing or swallowing. Nursing noted no nausea or vomiting today. Nursing stated pt ate well today for both breakfast and lunch. Pt's breakfast consisted of a fruit cup, apple juice, pancake, sausage and whole milk. Nursing notes documenting three 100% PO intakes + and consuming a fruit cup on 10/22 and three 100% PO intakes on 10/21. Nursing stated pt will say, more, more!' (reference to more food). Per nursing, pt wouldeat constantly. Pt receiving an evening snack of carrot + celery sticks daily. Will continue to send. Please call [phone] should request be made to modify snack. Caregivers filling out menus daily. Nursing had no concerns at this time. Please contact Food and Nutrition services with any questions that may arise. Nutrition will continue to follow. Nutrition Plan: Continue current diet. Diet office will send menus daily. Cut up all foods. Recommend Daily Multi Vitamins. Snacks- Celery + carrot sticks for evening snack. Encourage good po intake. Monitor weight. Support and encouragement provided. Nutrition services to follow weekly thru hospital course unless consulted in the interim. ADAM Kaur * Leticia De La Fuente RN - 10/23/2017 2:00 PM EDT Assumed care at 1400. * Skyla Rutherford RN - 10/23/2017 1:12 PM EDT 1:1 in room and sister/caregiver with patient as well. Up to wheelchair and brought out for walk. Pt denied pain this shift, but thought to be having muscle spasms. See new orders. Pt remains incontinent of urine. Passing flatus, but no BM noted. Fluid restriction remains in place. VSS * Marta Alfred RN - 10/23/2017 12:47 PM EDT Chart reviewed ,care reviewed with primary team and at interdisciplinary rounds. Mr Mason continues to be medically ready for discharge to SNF level of care. Patient's sister and guardian asked that I send a referral to [facility]. I let her know that he had [place] Medicaid and she is familiar with people who work there and [place] Medicaid. Will ask human resources operations coordinator to refer to [facility]. * Tez Tate MSW - 10/23/2017 11:12 AM EDT SW called the pt sister, whom is his guardian for an update but she was unavailable. The SW left a voicemail for a return phone call. The SW will continue to reach out to the pt sister and work on finding the best D/C plan for the pt. SW to remain available for assistance and coordination of care. * Isabel Donis MD - 10/22/2017 2:50 PM EDT Hospital Medicine Attending Daily Progress Note Admit Date: 09/02/2017 Hospital Day 50 days Active Hospital Problems Diagnosis ??? S/P ORIF left acetabulum fracture 09/04/2017 Dr. Lance ??? Postoperative anemia due to acute blood loss ??? Diabetes insipidus ??? Adrenal insufficiency ??? Panhypopituitarism ??? Seizure disorder ??? Hypothyroidism Resolved Hospital Problems Diagnosis Date Resolved No resolved problems to display. PMH Active Non-Hospital Problems Diagnosis ??? Insomnia ??? Blind ??? CVA (cerebral vascular accident) ??? Urinary incontinence Inpatient Medications: Scheduled ??? sodium chloride 0.9 % 5 mL Intravenous Q12H ??? melatonin 9 mg Oral Nightly ??? testosterone 5 g Transdermal Nightly ??? acetaminophen 1,000 mg Oral Q8H ??? HYDROmorphone 6 mg Oral Nightly ??? desmopressin 0.05 mg Oral 3 times per day ??? methyl salicylate-menthol Topical (Top) BID ??? calcium carbonate 500 mg Oral BID ??? cholecalciferol (Vitamin D3) 1,000 Units Oral Daily ??? hydrocortisone 20 mg Oral QAM ??? hydrocortisone 10 mg Oral Daily at Noon ??? hydrocortisone 10 mg Oral Q24H ??? enoxaparin 40 mg Subcutaneous Nightly ??? levothyroxine 150 mcg Oral QAM ??? pantoprazole 40 mg Oral QAM AC ??? QUEtiapine 250 mg Oral Nightly ??? traZODone 50 mg Oral Nightly ??? zonisamide 200 mg Oral Nightly Continuous infusions: PRN: sodium chloride 0.9 %, lidocaine, HYDROmorphone, bisacodyl, LORazepam, haloperidol, polyethylene glycol (MIRALAX)oral powder, senna-docusate, naphazoline-pheniramine Interval History: - No acute events overnight - Na stable Subjective: Unable to provide ROS due to nonverbal state. Sitter at bedside. Physical Exam Vitals Range last 24 hrs Temperature Temp: [35.9 ??C (96.6 ??F)-36.3 ??C (97.3 ??F)] Heart Rate Heart Rate: -- Blood Pressure BP: (124-157)/(84-100) Respiratory Rate Resp: [16-18] SpO2 SpO2: [91 %-95 %] Intake/Output Summary (Last 24 hours) at 10/22/17 1450 Last data filed at 10/22/17 0754 Gross per 24 hour Intake 180 ml Output 550 ml Net -370 ml No data found. There is no height or weight on file to calculate BMI. Gen: Young M in NAD, lying in bed HEENT: EOMI, anicteric, MMM, OP clear, no lesions/exudate. Fractured #21 molar noted on left mandibular molar but nontender, no abscess concerns. Neck: Full ROM. No JVD. Heart: RRR, Nl S1, S2. No M/R/Gs Lungs: CTAB. No rales, rhonchi, wheezes Abdo: Soft, NT, ND. NABS. Ext: No erythema, edema or asymmetry. No clubbing. Pulses 2+ throughout. Skin: No rashes/lesions Neuro: Mental Status - Unable to obtain. Non verbal. ONTIVEROS. Studies reviewed in eDH. Remarkable for the following: LABS: Recent Labs 10/22/17 0502 WBC 6.6 HGB 12.9* PLATELET 339 Recent Labs 10/22/17 0502 10/21/17 0403 10/19/17 0955 NA 141 134* 141 K 4.0 4.3 3.8 CO2 22 23 23 CL 103 95* 101 BUN 11 16 16 CREATININE 0.74* 0.91 0.98 CALCIUM 9.2 9.5 9.1 No results for input(s): PROT, ALBUMIN, BILITOT, BILIDIR, AST, ALT, ALKPHOS in the last 168 hours. No results for input(s): INR, FIBRINOGEN in the last 168 hours. No results for input(s): TROPONINT, CK, LACTATE in the last 168 hours. Imaging: CT face (10/20) - IMPRESSION Multiple dental caries. Dental restorations limits resolution somewhat but no definite molar fracture can be seen. Consider Panorex of the mandible. Assessment: Mr. Miguel Angel Mason is an unfortunate 27 year old man with h/o resection of pituitary tumor complicated by interaoperative hemorrhage and CVA, cognitive impairment, cortical blindness, partial left-sided paralysis, seizure disorder and panhypopit (cDI, AI, hypothyroidism, hypogonadism) who was admitted on 09/02 with left acetabular fracture which occurred during a possible seizure. He is s/p operative repair 09/04 with course complicated by issues with sodium and fluid homeostasis when his DDAVP was stopped, but these have now resolved with restarting home DDAVP. Agitation is likely due to pain with improvement noted largely with dilaudid, would continue to assume agitation is related to pain and continue such agitation management with dilaudid preferentially over ativan/haldol. He is waiting for placement as he can't climb stairs (due to LLE NWB status) and his home facility has only a second floor room for him. However placement options have not yet been found, appreciate CM assistance. Dentist confirmed fracture of molar #21 at gingiva without evidence of acute infection. Will attempt to arrange extraction in non-urgent manner pending availability. 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, adrenal insufficiency, hypothyroidism, hypogonadism) - Appreciate endocrine assistance - Continue TID DDAVP (will appropriate hold parameters), encourage PO intake of upwards of 3.2 L asper endocrine (or 110oz) - Decrease BMP to daily as UOP and serum Na have normalized - Continue home hydrocortisone, levothyroxine - Resume home androgel daily - Continue Calcium with Vit D # Left acetabular fracture s/p operative repair on 09/04 - NWB LLE for at least another month (through November), ok for stand pivot transfer from wheelchair perortho - dilaudid prn, but will also continue scheduled 6mg dose at night to help limit nighttime agitation that is suspected to be pain related - will also start standing tylenol 1g TID # Seizure disorder - continue home zonesamide 200 qhs per neuro # Fractured left lower molar: - Likely occurred with seizure - CT complete - dentist confirmed fracture of molar at gingiva without evidence of acute infection. IV access:none Tubes/Drains:none DVT PPX: lovenox Anticipated Disposition: unclear, LUCAS working with [place] IPI Certification I certify that I am a D-H credentialed attending provider with admitting privileges and that the patient meets or has met medical necessity to require an inpatient IPI level of care meeting a minimumof two midnights or is on the [facility] inpatient only procedure list (status C) due to: the patient has met Inpatient IPI criteria and is awaiting rehabilitation or half-way facility placement withactive referrals in process Team Pager( Coverage 27/01): #[phone] PCP: NAKIA Cifuentes [phone] Isabel Donis MD 10/22/2017 * Marta Alfred RN - 10/22/2017 11:53 AM EDT Chart reviewed, care reviewed with primary team. Mr Mason continues ready for discharge to SNF/S[facility] level of care. Over 30 referrals have been placed (statewide referrals) and all declined. Barriers include behaviors and patient with [place] Medicaid only for insurance. Mr Mason was admitted on 09/02 with fractured acetabulum requiring ORIF (09/04). He will be non weight bearing for 4 more weeks. Prior to admission he was living in a nursing home. He was independent with ambulation and lived on the second floor without elevator access. To return there he must be able to manage stairs. He has a guardian who requests update calls on Friday, Friday and Friday. S[employer]IOR PROFESSIONAL SERVICES CONSULTANT following as well and states a call was made yesterday. Call placed to [facility] [employer] Lc Hull (?sp) [phone] updated the contact information on his face sheet with his information. I left a message to update him on status and seek additional support/suggestions. I also reached the him specialists Noel Estrella who asked that all calls go to his shoe caser. * Isabel Donis MD - 10/21/2017 3:39 PM EDT Hospital Medicine Attending Daily Progress Note Admit Date: 09/02/2017 Hospital Day 49 days Active Hospital Problems Diagnosis ??? S/P ORIF left acetabulum fracture 09/04/2017 Dr. Lance ??? Postoperative anemia due to acute blood loss ??? Diabetes insipidus ??? Adrenal insufficiency ??? Panhypopituitarism ??? Seizure disorder ??? Hypothyroidism Resolved Hospital Problems Diagnosis Date Resolved No resolved problems to display. PMH Active Non-Hospital Problems Diagnosis ??? Insomnia ??? Blind ??? CVA (cerebral vascular accident) ??? Urinary incontinence Inpatient Medications: Scheduled ??? sodium chloride 0.9 % 5 mL Intravenous Q12H ??? melatonin 9 mg Oral Nightly ??? testosterone 5 g Transdermal Nightly ??? acetaminophen 1,000 mg Oral Q8H ??? HYDROmorphone 6 mg Oral Nightly ??? desmopressin 0.05 mg Oral 3 times per day ??? methyl salicylate-menthol Topical (Top) BID ??? calcium carbonate 500 mg Oral BID ??? cholecalciferol (Vitamin D3) 1,000 Units Oral Daily ??? hydrocortisone 20 mg Oral QAM ??? hydrocortisone 10 mg Oral Daily at Noon ??? hydrocortisone 10 mg Oral Q24H ??? enoxaparin 40 mg Subcutaneous Nightly ??? levothyroxine 150 mcg Oral QAM ??? pantoprazole 40 mg Oral QAM AC ??? QUEtiapine 250 mg Oral Nightly ??? traZODone 50 mg Oral Nightly ??? zonisamide 200 mg Oral Nightly Continuous infusions: PRN: sodium chloride 0.9 %, lidocaine, HYDROmorphone, bisacodyl, LORazepam, haloperidol, polyethylene glycol (MIRALAX)oral powder, senna-docusate, naphazoline-pheniramine Interval History: - No acute events overnight - CT performed Subjective: Unable to provide ROS due to nonverbal state. Sitter at bedside. Miguel Angel just wanted to sleep, pulling blanket up over head. Physical Exam Vitals Range last 24 hrs Temperature Temp: [36.1 ??C (97 ??F)-36.8 ??C (98.2 ??F)] Heart Rate Heart Rate: -- Blood Pressure BP: (122-129)/(83-106) Respiratory Rate Resp: [16] SpO2 SpO2: [95 %-98 %] Intake/Output Summary (Last 24 hours) at 10/21/17 1539 Last data filed at 10/21/17 1400 Gross per 24 hour Intake 2407 ml Output 450 ml Net 1957 ml No data found. There is no height or weight on file to calculate BMI. Gen: Young M in NAD, lying in bed HEENT: EOMI, anicteric, MMM, OP clear, no lesions/exudate. Fractured #21 molar noted on left mandibular molar but nontender, no abscess concerns. Neck: Full ROM. No JVD. Heart: RRR, Nl S1, S2. No M/R/Gs Lungs: CTAB. No rales, rhonchi, wheezes Abdo: Soft, NT, ND. NABS. Ext: No erythema, edema or asymmetry. No clubbing. Pulses 2+ throughout. Skin: No rashes/lesions Neuro: Mental Status - Unable to obtain. Non verbal. ONTIVEROS. Studies reviewed in eDH. Remarkable for the following: LABS: No results for input(s): WBC, HGB, PLATELET in the last 168 hours. Recent Labs 10/21/17 0403 10/19/17 0955 10/17/17 1827 NA 134* 141 142 K 4.3 3.8 Not Perf CO2 23 23 22 CL 95* 101 102 BUN 16 16 15 CREATININE 0.91 0.98 0.86 CALCIUM 9.5 9.1 8.8 No results for input(s): PROT, ALBUMIN, BILITOT, BILIDIR, AST, ALT, ALKPHOS in the last 168 hours. No results for input(s): INR, FIBRINOGEN in the last 168 hours. No results for input(s): TROPONINT, CK, LACTATE in the last 168 hours. Imaging: CT face (10/20) - IMPRESSION Multiple dental caries. Dental restorations limits resolution somewhat but no definite molar fracture can be seen. Consider Panorex of the mandible. Assessment: Mr. Miguel Angel Mason is an unfortunate 27 year old man with h/o resection of pituitary tumor complicated by interaoperative hemorrhage and CVA, cognitive impairment, cortical blindness, partial left-sided paralysis, seizure disorder and panhypopit (cDI, AI, hypothyroidism, hypogonadism) who was admitted on 09/02 with left acetabular fracture which occurred during a possible seizure. He is s/p operative repair 09/04 with course complicated by issues with sodium and fluid homeostasis when his DDAVP was stopped, but these have now resolved with restarting home DDAVP. Agitation is likely due to pain with improvement noted largely with dilaudid, would continue to assume agitation is related to pain and continue such agitation management with dilaudid preferentially over ativan/haldol. He is waiting for placement as he can't climb stairs (due to LLE NWB status) and his home facility has only a second floor room for him. However placement options have not yet been found, appreciate CM assistance. Dentist confirmed fracture of molar #21 at gingiva without evidence of acute infection. Will attempt to arrange extraction in non-urgent manner pending availability. 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, adrenal insufficiency, hypothyroidism, hypogonadism) - Appreciate endocrine assistance - Continue TID DDAVP (will appropriate hold parameters), encourage PO intake of upwards of 3.2 L asper endocrine (or 110oz) - Decrease BMP to daily as UOP and serum Na have normalized - Continue home hydrocortisone, levothyroxine - Resume home androgel daily - Continue Calcium with Vit D # Left acetabular fracture s/p operative repair on 09/04 - NWB LLE for at least another month (through November), ok for stand pivot transfer from wheelchair perortho - dilaudid prn, but will also continue scheduled 6mg dose at night to help limit nighttime agitation that is suspected to be pain related - will also start standing tylenol 1g TID # Seizure disorder - continue home zonesamide 200 qhs per neuro # Fractured left lower molar: - Likely occurred with seizure - CT complete - dentist confirmed fracture of molar at gingiva without evidence of acute infection. IV access:none Tubes/Drains:none DVT PPX: lovenox Anticipated Disposition: unclear, CM working with [place] IPI Certification I certify that I am a D-H credentialed attending provider with admitting privileges and that the patient meets or has met medical necessity to require an inpatient IPI level of care meeting a minimumof two midnights or is on the [facility] inpatient only procedure list (status C) due to: the patient has met Inpatient IPI criteria and is awaiting rehabilitation or half-way facility placement withactive referrals in process Team Pager(MD Coverage 27/01): #[phone] PCP: NAKIA Cifuentes [phone] Isabel Donis MD 10/21/2017 * Skyla Aranda MD - 10/21/2017 7:57 AM EDT Orthopaedic Surgery Progress Note Surgery/Issue: ORIF left acetabulum Attending: Dr. Lance Date of surgery: 09/04/2017 Subjective/Events: AMPARO, doing well today, appears comfortable this morning. Had a restless night last night. Lookinginto arranging first floor placement at his home, no other beds have been found. A CT of the face was performed yesterday for concerns of tooth decay and dental caries exacerbating the patient's pain, agitation, and overall discomfort. Formal dental plan is pending their exam and overall evaluation. He has otherwise remained stable for the past week and continues to be very vocal throughout the day. Objcetive: Temp: [36.3 ??C (97.3 ??F)-36.8 ??C (98.2 ??F)] Resp: [14-16] BP: (118-144)/(79-106) Intake/Output Summary (Last 24 hours) at 10/21/17 0757 Last data filed at 10/21/17 0624 Gross per 24 hour Intake 1307 ml Output 450 ml Net 857 ml Lab Results Component Value Date NA 134 (L) 10/21/2017 K 4.3 10/21/2017 CL 95 (L) 10/21/2017 CO2 23 10/21/2017 BUN 16 10/21/2017 CREATININE 0.91 10/21/2017 GLUCOSE 92 10/19/2017 GLUCFASTING 90 10/21/2017 CALCIUM 9.5 10/21/2017 Lab Results Component Value Date WBC 6.4 10/05/2017 HGB 11.1 (L) 10/05/2017 HCT 38.6 (L) 10/05/2017 MCV 86.4 10/05/2017 PLATELET 281 10/05/2017 Lab Results Component Value Date INR 1.1 09/03/2017 Exam: General: comfortable, resting in bed with sheet covering body; resting comfortably this morning. CV: RRR Resp: no increased work of breathing LLE: Anterior pelvic and left lower abdominal incisions c/d/i. Abdomen soft, non tender, no ecchymoses Unable to assess motor/sensory - formally but moving all 4 extremities in the bed Palpable DP/PT Imaging: XR pelvis IMPRESSION Unchanged osseous alignment. Difficult to identify interval callus formation/healing. No equipment complication seen. XR Judet IMPRESSION Stable bony alignment. Stable position internal fixation device. No appreciable overlying sclerosisor bony callus. ?? A/P: 27 y.o. male s/p ORIF left acetabular fx on 09/04/17. Progressing well post operatively. Furthercare per medicine, dental, and CM/SW for placement. He had his 6 week follow up last week with unchanged images of his injuries, early signs of healing noted. Weight bearing status stays the same, atleast 4 more weeks of NWB LLE. Continue OOB with PT/OT and nursing. Activity: NWB LLE, OK for stand pivot transfer on right leg only DVT prophylaxis: lovenox Closure: carisa are removed Dressings: may leave open to air now Follow up: to be re-tasked at discharge - please page #[phone] prior to discharge so follow up can be arranged. Skyla Aranda MD, PGY-1 Orthopaedic Surgery Pager #: [phone] Associated attestation - Amy Lance MD - 10/22/2017 8:42 AM EDT Patient seen and examined. Agree with resident note. Dispo planning Mandy Lance MD Department of Orthopaedics 10/22/17 * Isabel Donis MD - 10/20/2017 2:45 PM EDT Hospital Medicine Attending Daily Progress Note Admit Date: 09/02/2017 Hospital Day 48 days Active Hospital Problems Diagnosis ??? S/P ORIF left acetabulum fracture 09/04/2017 Dr. Lance ??? Postoperative anemia due to acute blood loss ??? Diabetes insipidus ??? Adrenal insufficiency ??? Panhypopituitarism ??? Seizure disorder ??? Hypothyroidism Resolved Hospital Problems Diagnosis Date Resolved No resolved problems to display. PMH Active Non-Hospital Problems Diagnosis ??? Insomnia ??? Blind ??? CVA (cerebral vascular accident) ??? Urinary incontinence Inpatient Medications: Scheduled ??? sodium chloride 0.9 % 5 mL Intravenous Q12H ??? melatonin 9 mg Oral Nightly ??? testosterone 5 g Transdermal Nightly ??? acetaminophen 1,000 mg Oral Q8H ??? HYDROmorphone 6 mg Oral Nightly ??? desmopressin 0.05 mg Oral 3 times per day ??? methyl salicylate-menthol Topical (Top) BID ??? calcium carbonate 500 mg Oral BID ??? cholecalciferol (Vitamin D3) 1,000 Units Oral Daily ??? hydrocortisone 20 mg Oral QAM ??? hydrocortisone 10 mg Oral Daily at Noon ??? hydrocortisone 10 mg Oral Q24H ??? enoxaparin 40 mg Subcutaneous Nightly ??? levothyroxine 150 mcg Oral QAM ??? pantoprazole 40 mg Oral QAM AC ??? QUEtiapine 250 mg Oral Nightly ??? traZODone 50 mg Oral Nightly ??? zonisamide 200 mg Oral Nightly Continuous infusions: PRN: sodium chloride 0.9 %, lidocaine, HYDROmorphone, bisacodyl, LORazepam, haloperidol, polyethylene glycol (MIRALAX)oral powder, senna-docusate, naphazoline-pheniramine Interval History: No acute events overnight Subjective: Unable to provide ROS due to nonverbal state. Sitter at bedside. Physical Exam Vitals Range last 24 hrs Temperature Temp: [36.3 ??C (97.3 ??F)-36.6 ??C (97.9 ??F)] Heart Rate Heart Rate: -- Blood Pressure BP: (118-144)/(79-91) Respiratory Rate Resp: [14-16] SpO2 SpO2: [95 %] Intake/Output Summary (Last 24 hours) at 10/20/17 1445 Last data filed at 10/20/17 0400 Gross per 24 hour Intake 3230 ml Output 0 ml Net 3230 ml No data found. There is no height or weight on file to calculate BMI. Gen: Young M in NAD, lying in bed HEENT: EOMI, anicteric, MMM, OP clear, no lesions/exudate. Fractured molar noted on left mandibularmolar but nontender, no abscess concerns. Neck: Full ROM. No JVD. Heart: RRR, Nl S1, S2. No M/R/Gs Lungs: CTAB. No rales, rhonchi, wheezes Abdo: Soft, NT, ND. NABS. Ext: No erythema, edema or asymmetry. No clubbing. Pulses 2+ throughout. Skin: No rashes/lesions Neuro: Mental Status - Unable to obtain. Non verbal. ONTIVEROS. Studies reviewed in eDH. Remarkable for the following: LABS: No results for input(s): WBC, HGB, PLATELET in the last 168 hours. Recent Labs 10/19/17 0955 10/17/17 1827 10/16/17 1026 NA 141 142 141 K 3.8 Not Perf 4.0 CO2 23 22 22 CL 101 102 104 BUN 16 15 16 CREATININE 0.98 0.86 0.86 CALCIUM 9.1 8.8 9.2 No results for input(s): PROT, ALBUMIN, BILITOT, BILIDIR, AST, ALT, ALKPHOS in the last 168 hours. No results for input(s): INR, FIBRINOGEN in the last 168 hours. No results for input(s): TROPONINT, CK, LACTATE in the last 168 hours. Imaging: CT face (10/20) - IMPRESSION Multiple dental caries. Dental restorations limits resolution somewhat but no definite molar fracture can be seen. Consider Panorex of the mandible. Assessment: Mr. Miguel Angel Mason is an unfortunate 27 year old man with h/o resection of pituitary tumor complicated by interaoperative hemorrhage and CVA, cognitive impairment, cortical blindness, partial left-sided paralysis, seizure disorder and panhypopit (cDI, AI, hypothyroidism, hypogonadism) who was admitted on 09/02 with left acetabular fracture which occurred during a possible seizure. He is s/p operative repair 09/04 with course complicated by issues with sodium and fluid homeostasis when his DDAVP was stopped, but these have now resolved with restarting home DDAVP. Agitation is likely due to pain with improvement noted largely with dilaudid, would continue to assume agitation is related to pain and continue such agitation management with dilaudid preferentially over ativan/haldol. He is waiting for placement as he can't climb stairs (due to LLE NWB status) and his home facility has only a second floor room for him. However placement options have not yet been found, appreciate CM assistance. Awaiting dental weigh in after CT today. 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, adrenal insufficiency, hypothyroidism, hypogonadism) - Appreciate endocrine assistance - Continue TID DDAVP (will appropriate hold parameters), encourage PO intake of upwards of 3.2 L asper endocrine (or 110oz) - Decrease BMP to daily as UOP and serum Na have normalized - Continue home hydrocortisone, levothyroxine - Resume home androgel daily - Continue Calcium with Vit D # Left acetabular fracture s/p operative repair on 09/04 - NWB LLE for at least another month (through November), ok for stand pivot transfer from wheelchair perortho - dilaudid prn, but will also continue scheduled 6mg dose at night to help limit nighttime agitation that is suspected to be pain related - will also start standing tylenol 1g TID # Seizure disorder - continue home zonesamide 200 qhs per neuro # Fractured left lower molar: - Likely occurred with seizure - CT complete, awaiting to discuss with dentist IV access:none Tubes/Drains:none DVT PPX: lovenox Anticipated Disposition: unclear, LUCAS working with [place] IPI Certification I certify that I am a D-H credentialed attending provider with admitting privileges and that the patient meets or has met medical necessity to require an inpatient IPI level of care meeting a minimumof two midnights or is on the CMS inpatient only procedure list (status C) due to: the patient has met Inpatient IPI criteria and is awaiting rehabilitation or half-way facility placement withactive referrals in process Team Pager( Coverage 27/01): #[phone] PCP: NAKIA Cifuentes [phone] Isabel Donis MD 10/20/2017 * Judie Thrasher RN - 10/20/2017 12:25 PM EDT Patient back on unit from CT. Alert, verbal. Vital signs stable. Will continue to monitor. * Judie Thrasher RN - 10/20/2017 11:36 AM EDT Patient off unit with RN accompaniment to CT. * Isabel Donis MD - 10/19/2017 3:17 PM EDT Hospital Medicine Attending Daily Progress Note Admit Date: 09/02/2017 Hospital Day 47 days Active Hospital Problems Diagnosis ??? S/P ORIF left acetabulum fracture 09/04/2017 Dr. Lance ??? Postoperative anemia due to acute blood loss ??? Diabetes insipidus ??? Adrenal insufficiency ??? Panhypopituitarism ??? Seizure disorder ??? Hypothyroidism Resolved Hospital Problems Diagnosis Date Resolved No resolved problems to display. PMH Active Non-Hospital Problems Diagnosis ??? Insomnia ??? Blind ??? CVA (cerebral vascular accident) ??? Urinary incontinence Inpatient Medications: Scheduled ??? melatonin 9 mg Oral Nightly ??? testosterone 5 g Transdermal Nightly ??? acetaminophen 1,000 mg Oral Q8H ??? HYDROmorphone 6 mg Oral Nightly ??? desmopressin 0.05 mg Oral 3 times per day ??? methyl salicylate-menthol Topical (Top) BID ??? calcium carbonate 500 mg Oral BID ??? cholecalciferol (Vitamin D3) 1,000 Units Oral Daily ??? hydrocortisone 20 mg Oral QAM ??? hydrocortisone 10 mg Oral Daily at Noon ??? hydrocortisone 10 mg Oral Q24H ??? enoxaparin 40 mg Subcutaneous Nightly ??? levothyroxine 150 mcg Oral QAM ??? pantoprazole 40 mg Oral QAM AC ??? QUEtiapine 250 mg Oral Nightly ??? traZODone 50 mg Oral Nightly ??? zonisamide 200 mg Oral Nightly Continuous infusions: PRN: HYDROmorphone, bisacodyl, LORazepam, haloperidol, polyethylene glycol (MIRALAX)oral powder, senna-docusate, lidocaine, naphazoline-pheniramine Interval History: - Had a good night with minimal agitation Subjective: Unable to provide ROS due to nonverbal state. Very agitated now waiting for his lunch, screaming/yelling. Sitter at bedside. Physical Exam Vitals Range last 24 hrs Temperature Temp: [36.1 ??C (97 ??F)-36.4 ??C (97.5 ??F)] Heart Rate Heart Rate: -- Blood Pressure BP: (159)/(144) Respiratory Rate Resp: [14-18] SpO2 SpO2: [90 %-98 %] Intake/Output Summary (Last 24 hours) at 10/19/17 1517 Last data filed at 10/19/17 1357 Gross per 24 hour Intake 1197 ml Output 325 ml Net 872 ml No data found. There is no height or weight on file to calculate BMI. Gen: Young M in NAD, lying in bed HEENT: EOMI, anicteric, MMM, OP clear, no lesions/exudate. Fractured molar noted on left mandibularmolar but nontender, no abscess concerns. Neck: Full ROM. No JVD. Heart: RRR, Nl S1, S2. No M/R/Gs Lungs: CTAB. No rales, rhonchi, wheezes Abdo: Soft, NT, ND. NABS. Ext: No erythema, edema or asymmetry. No clubbing. Pulses 2+ throughout. Skin: No rashes/lesions Neuro: Mental Status - Unable to obtain. Non verbal. ONTIVEROS. Studies reviewed in eDH. Remarkable for the following: LABS: No results for input(s): WBC, HGB, PLATELET in the last 168 hours. Recent Labs 10/19/17 0955 10/17/17 1827 10/16/17 1026 NA 141 142 141 K 3.8 Not Perf 4.0 CO2 23 22 22 CL 101 102 104 BUN 16 15 16 CREATININE 0.98 0.86 0.86 CALCIUM 9.1 8.8 9.2 No results for input(s): PROT, ALBUMIN, BILITOT, BILIDIR, AST, ALT, ALKPHOS in the last 168 hours. No results for input(s): INR, FIBRINOGEN in the last 168 hours. No results for input(s): TROPONINT, CK, LACTATE in the last 168 hours. Assessment: Mr. Miguel Angel Mason is an unfortunate 27 year old man with h/o resection of pituitary tumor complicated by interaoperative hemorrhage and CVA, cognitive impairment, cortical blindness, partial left-sided paralysis, seizure disorder and panhypopit (cDI, AI, hypothyroidism, hypogonadism) who was admitted on 09/02 with left acetabular fracture which occurred during a possible seizure. He is s/p operative repair 09/04 with course complicated by issues with sodium and fluid homeostasis when his DDAVP was stopped, but these have now resolved with restarting home DDAVP. Agitation is likely due to pain with improvement noted largely with dilaudid, would continue to assume agitation is related to pain and continue such agitation management with dilaudid preferentially over ativan/haldol. He is waiting for placement as he can't climb stairs (due to LLE NWB status) and his home facility has only a second floor room for him. However placement options have not yet been found, appreciate CM assistance. NPO from [place] for CT tomorrow with anesthesia. 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, adrenal insufficiency, hypothyroidism, hypogonadism) - Appreciate endocrine assistance - Continue TID DDAVP (will appropriate hold parameters), encourage PO intake of upwards of 3.2 L asper endocrine (or 110oz) - Decrease BMP to daily as UOP and serum Na have normalized - Continue home hydrocortisone, levothyroxine - Resume home androgel daily - Continue Calcium with Vit D # Left acetabular fracture s/p operative repair on 09/04 - NWB LLE for at least another month (through November), ok for stand pivot transfer from wheelchair perortho - dilaudid prn, but will also continue scheduled 6mg dose at night to help limit nighttime agitation that is suspected to be pain related - will also start standing tylenol 1g TID # Seizure disorder - continue home zonesamide 200 qhs per neuro # Fractured left lower molar: - Likely occurred with seizure - Plan for CT under anesthesia on Friday 10/20 - After CT is obtained, will need to call dentist, who will decide whether maxillofacial surgery isneeded to remove tooth. IV access:none Tubes/Drains:none DVT PPX: lovenox Anticipated Disposition: unclear, LUCAS working with [place] IPI Certification I certify that I am a D-H credentialed attending provider with admitting privileges and that the patient meets or has met medical necessity to require an inpatient IPI level of care meeting a minimumof two midnights or is on the [facility] inpatient only procedure list (status C) due to: the patient has met Inpatient IPI criteria and is awaiting rehabilitation or half-way facility placement withactive referrals in process Team Pager(MD Coverage 27/01): #[phone] PCP: NAKIA Cifuentes [phone] Isabel Donis MD 10/19/2017 * Isabel Donis MD - 10/18/2017 3:22 PM EDT [facility] Medicine Attending Daily Progress Note Admit Date: 09/02/2017 Hospital Day 46 days Active Hospital Problems Diagnosis ??? S/P ORIF left acetabulum fracture 09/04/2017 Dr. Lance ??? Postoperative anemia due to acute blood loss ??? Diabetes insipidus ??? Adrenal insufficiency ??? Panhypopituitarism ??? Seizure disorder ??? Hypothyroidism Resolved Hospital Problems Diagnosis Date Resolved No resolved problems to display. PMH Active Non-Hospital Problems Diagnosis ??? Insomnia ??? Blind ??? CVA (cerebral vascular accident) ??? Urinary incontinence Inpatient Medications: Scheduled ??? melatonin 9 mg Oral Nightly ??? testosterone 5 g Transdermal Nightly ??? acetaminophen 1,000 mg Oral Q8H ??? HYDROmorphone 6 mg Oral Nightly ??? desmopressin 0.05 mg Oral 3 times per day ??? methyl salicylate-menthol Topical (Top) BID ??? calcium carbonate 500 mg Oral BID ??? cholecalciferol (Vitamin D3) 1,000 Units Oral Daily ??? hydrocortisone 20 mg Oral QAM ??? hydrocortisone 10 mg Oral Daily at Noon ??? hydrocortisone 10 mg Oral Q24H ??? enoxaparin 40 mg Subcutaneous Nightly ??? levothyroxine 150 mcg Oral QAM ??? pantoprazole 40 mg Oral QAM AC ??? QUEtiapine 250 mg Oral Nightly ??? traZODone 50 mg Oral Nightly ??? zonisamide 200 mg Oral Nightly Continuous infusions: PRN: HYDROmorphone, bisacodyl, LORazepam, haloperidol, polyethylene glycol (MIRALAX)oral powder, senna-docusate, lidocaine, naphazoline-pheniramine Interval History: - Had a good night with minimal agitation Subjective: Unable to provide ROS due to nonverbal state. Physical Exam Vitals Range last 24 hrs Temperature Temp: [36 ??C (96.8 ??F)-36.1 ??C (97 ??F)] Heart Rate Heart Rate: -- Blood Pressure BP: (132-160)/(92-115) Respiratory Rate Resp: [18-20] SpO2 SpO2: [92 %-100 %] Intake/Output Summary (Last 24 hours) at 10/18/17 1522 Last data filed at 10/18/17 1400 Gross per 24 hour Intake 1406 ml Output 0 ml Net 1406 ml No data found. There is no height or weight on file to calculate BMI. Gen: Young M in NAD, lying in bed HEENT: EOMI, anicteric, MMM, OP clear, no lesions/exudate. Fractured molar noted on left mandibularmolar but nontender, no abscess concerns. Neck: Full ROM. No JVD. Heart: RRR, Nl S1, S2. No M/R/Gs Lungs: CTAB. No rales, rhonchi, wheezes Abdo: Soft, NT, ND. NABS. Ext: No erythema, edema or asymmetry. No clubbing. Pulses 2+ throughout. Skin: No rashes/lesions Neuro: Mental Status - Unable to obtain. Non verbal. ONTIVEROS. Studies reviewed in eDH. Remarkable for the following: LABS: No results for input(s): WBC, HGB, PLATELET in the last 168 hours. Recent Labs 10/17/17 1827 10/16/17 1026 10/15/17 0827 NA 142 141 140 K Not Perf 4.0 3.7 CO2 22 22 24 CL 102 104 101 BUN 15 16 16 CREATININE 0.86 0.86 0.99 CALCIUM 8.8 9.2 8.9 No results for input(s): PROT, ALBUMIN, BILITOT, BILIDIR, AST, ALT, ALKPHOS in the last 168 hours. No results for input(s): INR, FIBRINOGEN in the last 168 hours. No results for input(s): TROPONINT, CK, LACTATE in the last 168 hours. Assessment: Mr. Miguel Angel Mason is an unfortunate 27 year old man with h/o resection of pituitary tumor complicated by interaoperative hemorrhage and CVA, cognitive impairment, cortical blindness, partial left-sided paralysis, seizure disorder and panhypopit (cDI, AI, hypothyroidism, hypogonadism) who was admitted on 09/02 with left acetabular fracture which occurred during a possible seizure. He is s/p operative repair 09/04 with course complicated by issues with sodium and fluid homeostasis when his DDAVP was stopped, but these have now resolved with restarting home DDAVP. Agitation is likely due to pain with improvement noted largely with dilaudid, would continue to assume agitation is related to pain and continue such agitation management with dilaudid preferentially over ativan/haldol. He is waiting for placement as he can't climb stairs (due to LLE NWB status) and his home facility has only a second floor room for him. However placement options have not yet been found, appreciate assistance. 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, adrenal insufficiency, hypothyroidism, hypogonadism) - Appreciate endocrine assistance - Continue TID DDAVP (will appropriate hold parameters), encourage PO intake of upwards of 3.2 L asper endocrine (or 110oz) - Decrease BMP to daily as UOP and serum Na have normalized - Continue home hydrocortisone, levothyroxine - Resume home androgel daily - Continue Calcium with Vit D # Left acetabular fracture s/p operative repair on 3/1 - NWB LLE for at least another month (through November), ok for stand pivot transfer from wheelchair perortho - dilaudid prn, but will also continue scheduled 6mg dose at night to help limit nighttime agitation that is suspected to be pain related - will also start standing tylenol 1g TID # Seizure disorder - continue home zonesamide 200 qhs per neuro # Fractured left lower molar: - Likely occurred with seizure - Plan for CT under anesthesia on Friday 10/20 - After CT is obtained, will need to call dentist, who will decide whether maxillofacial surgery isneeded to remove tooth. IV access:none Tubes/Drains:none DVT PPX: lovenox Anticipated Disposition: unclear, CM working with [place] IPI Certification I certify that I am a D-H credentialed attending provider with admitting privileges and that the patient meets or has met medical necessity to require an inpatient IPI level of care meeting a minimumof two midnights or is on the [facility] inpatient only procedure list (status C) due to: the patient has met Inpatient IPI criteria and is awaiting rehabilitation or half-way facility placement withactive referrals in process Team Pager(MD Coverage 27/01): #[phone] PCP: NAKIA Cifuentes [phone] Isabel Donis MD 10/18/2017 * Tez Tate, SENIOR PROFESSIONAL SERVICES CONSULTANT - 10/17/2017 5:31 PM EDT Based on discussions with the multi-disciplinary healthcare team, the patient would benefit from skilled level of care at discharge. ?? I have met with the patient/insurance sales representative to discuss discharge planning needs. I have provided the [facility], Office of Care Management letter from the [employer] pertaining to rehab referrals. I have also provided a letter describing our affiliations within the [facility] and educated them about their right to choose where referrals are placed. ?? I reviewed the different levels of rehab including SNF, swing, acute and LTAC with the patient/insurance sales representative. ?? The patient/insurance sales representative has been provided a list of facilities within their preferred geographic area. ?? I have requested that the patient/insurance sales representative provide at least three choices for referral. ?? The patient/insurance sales representative have requested referrals to: ?? 1. [facility] ?? Expected date of discharge: 10/17/2017 Note routed to Audit Director who will communicate referrals to facilities and provide any required information. * Jevon Rosales MD - 10/17/2017 1:24 PM EDT Hospital Medicine Attending Daily Progress Note Admit Date: 09/02/2017 Hospital Day 45 days Active Hospital Problems Diagnosis ??? S/P ORIF left acetabulum fracture 09/04/2017 Dr. Lance ??? Postoperative anemia due to acute blood loss ??? Diabetes insipidus ??? Adrenal insufficiency ??? Panhypopituitarism ??? Seizure disorder ??? Hypothyroidism Resolved Hospital Problems Diagnosis Date Resolved No resolved problems to display. PMH Active Non-Hospital Problems Diagnosis ??? Insomnia ??? Blind ??? CVA (cerebral vascular accident) ??? Urinary incontinence Inpatient Medications: Scheduled ??? melatonin 9 mg Oral Nightly ??? testosterone 5 g Transdermal Nightly ??? acetaminophen 1,000 mg Oral Q8H ??? HYDROmorphone 6 mg Oral Nightly ??? desmopressin 0.05 mg Oral 3 times per day ??? methyl salicylate-menthol Topical (Top) BID ??? calcium carbonate 500 mg Oral BID ??? cholecalciferol (Vitamin D3) 1,000 Units Oral Daily ??? hydrocortisone 20 mg Oral QAM ??? hydrocortisone 10 mg Oral Daily at Noon ??? hydrocortisone 10 mg Oral Q24H ??? enoxaparin 40 mg Subcutaneous Nightly ??? levothyroxine 150 mcg Oral QAM ??? pantoprazole 40 mg Oral QAM AC ??? QUEtiapine 250 mg Oral Nightly ??? traZODone 50 mg Oral Nightly ??? zonisamide 200 mg Oral Nightly Continuous infusions: PRN: HYDROmorphone, bisacodyl, LORazepam, haloperidol, polyethylene glycol (MIRALAX)oral powder, senna-docusate, lidocaine, naphazoline-pheniramine Interval History: uneventful; used 6mg dilaudid Physical Exam Vitals Range last 24 hrs Temperature Temp: [36 ??C (96.8 ??F)-36.8 ??C (98.2 ??F)] Heart Rate Heart Rate: -- Blood Pressure BP: (113-135)/(76-92) Respiratory Rate Resp: [18-20] SpO2 SpO2: [87 %-98 %] Intake/Output Summary (Last 24 hours) at 10/17/17 1324 Last data filed at 10/17/17 1000 Gross per 24 hour Intake 2380 ml Output 250 ml Net 2130 ml No data found. There is no height or weight on file to calculate BMI. General: young man in NAD, lying comfortably in bed HEENT: nc/at, perrl, eomi, op clear, mmmoist, anicteric sclera without conjunctival pallor MS: ONTIVEROS Ext: no c/c/e Neuro: CN II-XII intact, sensation grossly intact Skin: no lesions noted Studies reviewed in eDH. Remarkable for the following: LABS: Last wbc, hgb, hct plt No results for input(s): WBC, HGB, HCT in the last 72 hours. Invalid input(s): PLT Last 3 Lytes Recent Labs 10/16/17 1026 10/15/17 0827 10/14/17 1336 NA 141 140 140 K 4.0 3.7 3.6 CL 104 101 100 CO2 22 24 23 BUN 16 16 18 CREATININE 0.86 0.99 0.85 Assessment: Unfortunate 27 year old man with h/o recection of pituitary tumor complicated by interaoperative hemorrhage and CVA, cognitive impairment, cortical blindness, partial left-sided paralysis, seizure disorder and panhypopit (cDI, AI, hypothyroidism, hypogonadism) admitted with left acetabular fracture occurring during a possible seizure. He is s/p operative repair 09/04. He had issues withsodium and fluid homeostasis when his DDAVP was stopped, but these have resolved with restarting home DDAVP. He is waiting for placement as he can't climb stairs and his home facility has only a second floor room for him. Plan: Endo: Continue TID DDAVP with encouragement to take up to 110oz fluid Continue home hydrocortisone, levothyroxine, androgel Calcium with Vit D Ortho: S/p operative repair 3/1, re-task f/u on discharge NWB LLE through November, ok for stand pivot transfer from wheelchair per ortho Neuro: Continue home zonesamide 200 qhs per neuro ENT: Attempting to obtain CT face to eval fracture LL molar. After CT is obtained, will need to call dentist, who will decide whether maxillofacial surgery is needed to remove tooth. IV access:none Tubes/Drains:none DVT PPX: lovenox Anticipated Disposition: unclear, CM working with [place] Goals of Care: Full Team Pager(MD Coverage 27/01): #[phone] PCP: NAKIA Cifuentes [phone] JEVON ROSALES MD 10/17/2017 * Ren Walters OTA - 10/17/2017 10:58 AM EDT Attempted to see pt this morning, pt presents with increased agitation at this time. Will attempt again at a more appropriate time. Ren MAYA Pager: [phone] * Debbie Keller DT - 10/16/2017 4:08 PM EDT Nutrition Services - Follow-up Note Miguel Angel Mason : 1990 AGE: 27 y.o. Patient Active Problem List Diagnosis Date Noted ??? *Hospital-S/P ORIF left acetabulum fracture 09/04/2017 Dr. Lance 09/02/2017 ??? Hospital-Postoperative anemia due to acute blood loss 09/04/2017 ??? Hospital-Diabetes insipidus 09/03/2017 ??? Hospital-Adrenal insufficiency 09/03/2017 ??? 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 Hospital-Seizure disorder 09/03/2017 ??? Insomnia 09/03/2017 ??? Blind 09/03/2017 ??? CVA (cerebral vascular accident) 09/03/2017 ??? Urinary incontinence 09/03/2017 ??? Hospital-Hypothyroidism 09/03/2017 Reason for Nutrition Intervention: Follow-up Diet Order: Regular, FR 3000 Appetite: Fair/good- per nursing Food allergies: NKFA Chewing difficulty: noted- per nursing Ht Readings from Last 3 Encounters: 09/07/17 177.8 cm (5' 10) Wt Readings from Last 3 Encounters: 09/04/17 86.6 kg (191 lb) There is no height or weight on file to calculate BMI. Vitamins/Minerals: Vitamin D3, Tums noted. Assessment: Patient seen for follow up. Land Agent able to speak with nursing on pt's nutritional care.Nursing reported a fair/good appetite without difficulty swallowing however noted chewing concerns.Nursing stated, nutrition is going well, however concerns for pt pocketing food and pills. He is very tired during the day and showing agitation at night. Nutrition is best when pt is most alert andcooperative. He is tolerating current diet without nausea or vomiting. Pt consumed 50% PO intake of breakfast as nursing stated pt was tired. Nursing notes documenting 75% + 100% PO intake on 10/15. Dietary to send evening snack of carrot sticks and celery sticks daily. Please contact Food and Nutrition services with any questions that may arise. Nutrition will continue to follow. Nutrition Plan: Suggest adding Fluid Restriction to current diet order. Cut up all foods. Monitor for pocketing food in mouth. Dietary to send menu daily to caregivers. Recommend Daily Multi Vitamins. Evening snack- carrot and celery sticks. Encourage good po intake. Monitor weight. Support and encouragement provided. Nutrition services to follow weekly thru hospital course unless consulted in the interim. ADAM Kaur * Chavez Kelsey RN - 10/16/2017 2:39 PM EDT OFFICE OF CARE MANAGEMENT A multidisciplinary meeting was held on Friday10/14/17. Those present were : attending hospitalist MD Dr Koch, orthopedic MD Skyla Aranda, a insurance sales representative from PT, Nursing and [address] [place] [address] leadership were also present as well as this CM. Miguel Angel Dunbar and Lc Martinez [phone]: Director [facility] were able to attend in person and Subha Tejeda [phone] is the RN of [facility] who oversees the nursing home was available to participate via conference call. CM did reach out to Noel Estrella [phone]:??[facility] Dept of Aging and [place], Developmental Services Specialist however Noel was unavailable to participate in the meeting at this time. We reviewed that miguel angel continues to be a placement challenge. Statewide search for skilled facility has been initiated however no bed offers at this time. We discussed WB status continues to be TD however we also discussed that given Miguel Angel developmental challenges it would be prudent to plan for of wheel chair accessible housing for minimum of 3mths. It was brought to attention that miguel angel's care givers are having increasing difficulty providing consistent coverage for sitters for miguel angel. [facility] leadership discussed the challenges of staffing [facility] needs, if the care givers are unable to provide staff. It was discussed the caregivers may be more useful during the day to encourage [facility] ( fluid intake). We discussed pt's PCP is also new to Miguel Angel and not able to provide much insight. At this time, placement continues to be challenging. State wide referral in place to all skilled facilities in [place].- no bed offers Referrals are also in place to [facility] affiliates no bed offers. CM will continue to reach out to the state consistently until appropriate plmt. * Dillon Koch MD - 10/16/2017 8:15 AM EDT Hospital Medicine Attending Daily Progress Note Admit Date: 09/02/2017 Hospital Day 44 days Active Hospital Problems Diagnosis ??? S/P ORIF left acetabulum fracture 09/04/2017 Dr. Lance ??? Postoperative anemia due to acute blood loss ??? Diabetes insipidus ??? Adrenal insufficiency ??? Panhypopituitarism ??? Seizure disorder ??? Hypothyroidism Resolved Hospital Problems Diagnosis Date Resolved No resolved problems to display. PMH Active Non-Hospital Problems Diagnosis ??? Insomnia ??? Blind ??? CVA (cerebral vascular accident) ??? Urinary incontinence Inpatient Medications: Scheduled ??? melatonin 6 mg Oral Nightly ??? testosterone 5 g Transdermal Nightly ??? acetaminophen 1,000 mg Oral Q8H ??? HYDROmorphone 6 mg Oral Nightly ??? desmopressin 0.05 mg Oral 3 times per day ??? methyl salicylate-menthol Topical (Top) BID ??? calcium carbonate 500 mg Oral BID ??? cholecalciferol (Vitamin D3) 1,000 Units Oral Daily ??? hydrocortisone 20 mg Oral QAM ??? hydrocortisone 10 mg Oral Daily at Noon ??? hydrocortisone 10 mg Oral Q24H ??? enoxaparin 40 mg Subcutaneous Nightly ??? levothyroxine 150 mcg Oral QAM ??? pantoprazole 40 mg Oral QAM AC ??? QUEtiapine 250 mg Oral Nightly ??? traZODone 50 mg Oral Nightly ??? zonisamide 200 mg Oral Nightly Continuous infusions: PRN: HYDROmorphone, bisacodyl, LORazepam, haloperidol, polyethylene glycol (MIRALAX)oral powder, senna-docusate, lidocaine, naphazoline-pheniramine Interval History: Did require Haldol and Ativan yesterday but appears that dilaudid was not given as frequently. Unable to provide ROS due to nonverbal state but did give a thumbs up today as to how he was feeling today. Physical Exam Vitals Range last 24 hrs Temperature Temp: [36.2 ??C (97.2 ??F)-36.8 ??C (98.2 ??F)] Heart Rate Heart Rate: [85-89] Blood Pressure BP: (121-131)/(75-94) Respiratory Rate Resp: [17-18] SpO2 SpO2: [97 %-100 %] Intake/Output Summary (Last 24 hours) at 10/16/17 0815 Last data filed at 10/16/17 0800 Gross per 24 hour Intake 990 ml Output 1100 ml Net -110 ml No data found. There is no height or weight on file to calculate BMI. General: young man in NAD, lying comfortably in bed HEENT: nc/at, perrl, eomi, op clear, mmmoist, anicteric sclera without conjunctival pallor. Fractured molar noted on left mandibular molar but nontender, no abscess concerns. MS: ONTIVEROS Ext: no c/c/e Neuro: CN II-XII intact, sensation grossly intact Skin: no lesions noted Studies reviewed in eDH. Remarkable for the following: LABS: Last wbc, hgb, hct plt No results for input(s): WBC, HGB, HCT in the last 72 hours. Invalid input(s): PLT Last 3 Lytes Recent Labs 10/15/17 0827 10/14/17 1336 10/13/17 2354 NA 140 140 140 K 3.7 3.6 3.8 CL 101 100 103 CO2 24 23 24 BUN 16 18 15 CREATININE 0.99 0.85 0.88 Assessment: Unfortunate 27 year old man with h/o recection of pituitary tumor complicated by interaoperative hemorrhage and CVA, cognitive impairment, cortical blindness, partial left-sided paralysis, seizure disorder and panhypopit (cDI, AI, hypothyroidism, hypogonadism) admitted with left acetabular fracture occurring during a possible seizure. He is s/p operative repair 09/04. He had issues withsodium and fluid homeostasis when his DDAVP was stopped, but these had resolved with restarting home DDAVP. Recently DDAVP was held as per orders to hold based on sodium level but polyuria has resumed with recurrence of hypernatremia, will adjust hold parameters to prevent recurrence and continue as per his home regimen including his home fluid intake. Agitation likely due to pain with improvement noted largely with dilaudid, would continue to assume agitation is related to pain and continue such agitation management with dilaudid preferentially over ativan/haldol. He is waiting for placementas he can't climb stairs (due to LLE NWB status) and his home facility has only a second floor roomfor him. However placement options have not yet been found, appreciate assistance. Plan: * Hypernatremia in the setting of panhypopituitarism (with central DI, adrenal insufficiency, hypothyroidism, hypogonadism) - appreciate endocrine assistance - Continue TID DDAVP (will appropriate hold parameters), encourage PO intake of upwards of 3.2L as per endocrine (or 110oz) - decrease BMP to daily as UOP and serum Na have normalized - Continue home hydrocortisone, levothyroxine - resume home androgel daily - continue Calcium with Vit D * Left acetabular fracture s/p operative repair on 09/04 - NWB LLE for at least another month (through November), ok for stand pivot transfer from wheelchair perortho - dilaudid prn, but will also continue scheduled 6mg dose at night to help limit nighttime agitation that is suspected to be pain related - will also start standing tylenol 1g TID * Seizure disorder - continue home zonesamide 200 qhs per neuro * Fractured left lower molar: - likely occurred with seizure - dentistry consulted for potential extraction as may be a potential source of infection in the future that would be problematic with his hardware IV access:none Tubes/Drains:none DVT PPX: lovenox Anticipated Disposition: unclear, LUCAS working with [place] IPI Certification I certify that I am a D-H credentialed attending provider with admitting privileges and that the patient meets or has met medical necessity to require an inpatient IPI level of care meeting a minimumof two midnights or is on the [facility] inpatient only procedure list (status C) due to: the patient has met Inpatient IPI criteria and is awaiting rehabilitation or half-way facility placement withactive referrals in process Team Pager(MD Coverage 27/01): #[phone] PCP: NAKIA Cifuentes [phone] DILLON KOCH MD 10/16/2017 * Dillon Koch MD - 10/15/2017 7:52 AM EDT Hospital Medicine Attending Daily Progress Note Admit Date: 09/02/2017 Hospital Day 43 days Active Hospital Problems Diagnosis ??? S/P ORIF left acetabulum fracture 09/04/2017 Dr. Lance ??? Postoperative anemia due to acute blood loss ??? Diabetes insipidus ??? Adrenal insufficiency ??? Panhypopituitarism ??? Seizure disorder ??? Hypothyroidism Resolved Hospital Problems Diagnosis Date Resolved No resolved problems to display. PMH Active Non-Hospital Problems Diagnosis ??? Insomnia ??? Blind ??? CVA (cerebral vascular accident) ??? Urinary incontinence Inpatient Medications: Scheduled ??? acetaminophen 1,000 mg Oral Q8H ??? testosterone 3 Act Topical (Top) Daily ??? HYDROmorphone 6 mg Oral Nightly ??? desmopressin 0.05 mg Oral 3 times per day ??? methyl salicylate-menthol Topical (Top) BID ??? calcium carbonate 500 mg Oral BID ??? cholecalciferol (Vitamin D3) 1,000 Units Oral Daily ??? hydrocortisone 20 mg Oral QAM ??? hydrocortisone 10 mg Oral Daily at Noon ??? hydrocortisone 10 mg Oral Q24H ??? enoxaparin 40 mg Subcutaneous Nightly ??? levothyroxine 150 mcg Oral QAM ??? melatonin 3 mg Oral Nightly ??? pantoprazole 40 mg Oral QAM AC ??? QUEtiapine 250 mg Oral Nightly ??? traZODone 50 mg Oral Nightly ??? zonisamide 200 mg Oral Nightly Continuous infusions: PRN: HYDROmorphone, bisacodyl, LORazepam, haloperidol, polyethylene glycol (MIRALAX)oral powder, senna-docusate, lidocaine, naphazoline-pheniramine Interval History: Per caregiver at bedside reportedly had a good night but staffing notes do indicate some agitation at times - still no haldol nor ativan required. Unable to provide ROS due to nonverbal state but did give a thumbs up today as to how he was feeling today. Fractured molar noted by sister yesterday. Physical Exam Vitals Range last 24 hrs Temperature Temp: [36.2 ??C (97.2 ??F)] Heart Rate Heart Rate: -- Blood Pressure BP: (143)/(95) Respiratory Rate Resp: [18] SpO2 SpO2: -- Intake/Output Summary (Last 24 hours) at 10/15/17 0752 Last data filed at 10/15/17 0300 Gross per 24 hour Intake 2321 ml Output 200 ml Net 2121 ml No data found. There is no height or weight on file to calculate BMI. General: young man in NAD, lying comfortably in bed HEENT: nc/at, perrl, eomi, op clear, mmmoist, anicteric sclera without conjunctival pallor. Fractured molar noted on left mandibular molar but nontender, no abscess concerns. MS: ONTIVEROS Ext: no c/c/e Neuro: CN II-XII intact, sensation grossly intact Skin: no lesions noted Studies reviewed in eDH. Remarkable for the following: LABS: Last wbc, hgb, hct plt No results for input(s): WBC, HGB, HCT in the last 72 hours. Invalid input(s): PLT Last 3 Lytes Recent Labs 10/14/17 1336 10/13/17 2354 10/13/17 1812 NA 140 140 143 K 3.6 3.8 3.8 CL 100 103 104 CO2 23 24 23 BUN 18 15 14 CREATININE 0.85 0.88 0.69* Assessment: Unfortunate 27 year old man with h/o recection of pituitary tumor complicated by interaoperative hemorrhage and CVA, cognitive impairment, cortical blindness, partial left-sided paralysis, seizure disorder and panhypopit (cDI, AI, hypothyroidism, hypogonadism) admitted with left acetabular fracture occurring during a possible seizure. He is s/p operative repair 09/04. He had issues withsodium and fluid homeostasis when his DDAVP was stopped, but these had resolved with restarting home DDAVP. Recently DDAVP was held as per orders to hold based on sodium level but polyuria has resumed with recurrence of hypernatremia, will adjust hold parameters to prevent recurrence and continue as per his home regimen including his home fluid intake. He is waiting for placement as he can't climb stairs (due to LLE NWB status) and his home facility has only a second floor room for him. Howeverplacement options have not yet been found, appreciate assistance. Plan: * Hypernatremia in the setting of panhypopituitarism (with central DI, adrenal insufficiency, hypothyroidism, hypogonadism) - appreciate endocrine assistance - Continue TID DDAVP (will appropriate hold parameters), encourage PO intake of upwards of 3.2L as per endocrine (or 110oz) - decrease BMP to daily as UOP and serum Na have normalized - Continue home hydrocortisone, levothyroxine - resume home androgel daily - continue Calcium with Vit D * Left acetabular fracture s/p operative repair on 09/04 - NWB LLE for at least another month (through November), ok for stand pivot transfer from wheelchair perortho - dilaudid prn, but will also continue scheduled 6mg dose at night to help limit nighttime agitation that is suspected to be pain related - will also start standing tylenol 1g TID * Seizure disorder - continue home zonesamide 200 qhs per neuro * Fractured left lower molar: - likely occurred with seizure - will consult OMS for potential extraction as may be a potential source of infection in the futurethat would be problematic with his hardware IV access:none Tubes/Drains:none DVT PPX: lovenox Anticipated Disposition: unclear, CM working with [place] IPI Certification I certify that I am a D-H credentialed attending provider with admitting privileges and that the patient meets or has met medical necessity to require an inpatient IPI level of care meeting a minimumof two midnights or is on the [facility] inpatient only procedure list (status C) due to: the patient has met Inpatient IPI criteria and is awaiting rehabilitation or half-way facility placement withactive referrals in process Team Pager(MD Coverage 27/01): #[phone] PCP: NAKIA Cifuentes [phone] DILLON KOCH MD 10/15/2017 * Dillon Koch MD - 10/14/2017 8:24 AM EDT Hospital Medicine Attending Daily Progress Note Admit Date: 09/02/2017 Hospital Day 42 days Active Hospital Problems Diagnosis ??? S/P ORIF left acetabulum fracture 09/04/2017 Dr. Lance ??? Postoperative anemia due to acute blood loss ??? Diabetes insipidus ??? Adrenal insufficiency ??? Panhypopituitarism ??? Seizure disorder ??? Hypothyroidism Resolved Hospital Problems Diagnosis Date Resolved No resolved problems to display. PMH Active Non-Hospital Problems Diagnosis ??? Insomnia ??? Blind ??? CVA (cerebral vascular accident) ??? Urinary incontinence Inpatient Medications: Scheduled ??? HYDROmorphone 6 mg Oral Nightly ??? desmopressin 0.05 mg Oral 3 times per day ??? methyl salicylate-menthol Topical (Top) BID ??? calcium carbonate 500 mg Oral BID ??? cholecalciferol (Vitamin D3) 1,000 Units Oral Daily ??? hydrocortisone 20 mg Oral QAM ??? hydrocortisone 10 mg Oral Daily at Noon ??? hydrocortisone 10 mg Oral Q24H ??? enoxaparin 40 mg Subcutaneous Nightly ??? levothyroxine 150 mcg Oral QAM ??? melatonin 3 mg Oral Nightly ??? pantoprazole 40 mg Oral QAM AC ??? QUEtiapine 250 mg Oral Nightly ??? traZODone 50 mg Oral Nightly ??? zonisamide 200 mg Oral Nightly Continuous infusions: PRN: HYDROmorphone, bisacodyl, LORazepam, haloperidol, polyethylene glycol (MIRALAX)oral powder, senna-docusate, lidocaine, naphazoline-pheniramine Interval History: Per caregiver at bedside reportedly had a good night but staffing notes do indicate some agitation at times - no haldol nor ativan required. Unable to provide ROS due to nonverbal state but did give a thumbs up today as to how he was feeling today. Physical Exam Vitals Range last 24 hrs Temperature Temp: [36.3 ??C (97.3 ??F)-36.5 ??C (97.7 ??F)] Heart Rate Heart Rate: -- Blood Pressure BP: (142-146)/(97) Respiratory Rate Resp: [16-20] SpO2 SpO2: [96 %-99 %] Intake/Output Summary (Last 24 hours) at 10/14/17 0824 Last data filed at 10/14/17 0600 Gross per 24 hour Intake 2100 ml Output 575 ml Net 1525 ml No data found. There is no height or weight on file to calculate BMI. General: young man in NAD, lying comfortably in bed HEENT: nc/at, perrl, eomi, op clear, mmmoist, anicteric sclera without conjunctival pallor MS: ONTIVEROS Ext: no c/c/e Neuro: CN II-XII intact, sensation grossly intact Skin: no lesions noted Studies reviewed in eDH. Remarkable for the following: LABS: Last wbc, hgb, hct plt No results for input(s): WBC, HGB, HCT in the last 72 hours. Invalid input(s): PLT Last 3 Lytes Recent Labs 10/13/17 2354 10/13/17 1812 10/13/17 0334 NA 140 143 144 K 3.8 3.8 3.9 CL 103 104 105 CO2 24 23 23 BUN 15 14 16 CREATININE 0.88 0.69* 0.74* Assessment: Unfortunate 27 year old man with h/o recection of pituitary tumor complicated by interaoperative hemorrhage and CVA, cognitive impairment, cortical blindness, partial left-sided paralysis, seizure disorder and panhypopit (cDI, AI, hypothyroidism, hypogonadism) admitted with left acetabular fracture occurring during a possible seizure. He is s/p operative repair 09/04. He had issues withsodium and fluid homeostasis when his DDAVP was stopped, but these had resolved with restarting home DDAVP. Recently DDAVP was held as per orders to hold based on sodium level but polyuria has resumed with recurrence of hypernatremia, will adjust hold parameters to prevent recurrence and continue as per his home regimen including his home fluid intake. He is waiting for placement as he can't climb stairs (due to LLE NWB status) and his home facility has only a second floor room for him. Plan: * Hypernatremia in the setting of panhypopituitarism (with central DI, adrenal insufficiency, hypothyroidism, hypogonadism) - appreciate endocrine assistance - Continue TID DDAVP (will appropriate hold parameters), encourage PO intake of upwards of 3.2L as per endocrine (or 110oz) - decrease BMP to daily as UOP and serum Na have normalized - Continue home hydrocortisone, levothyroxine - resume home androgel daily - continue Calcium with Vit D * Left acetabular fracture s/p operative repair on 09/04 - NWB LLE for at least another month (through November), ok for stand pivot transfer from wheelchair perortho - dilaudid prn, but will also continue scheduled 6mg dose at night to help limit nighttime agitation that is suspected to be pain related - will also start standing tylenol 1g TID * Seizure disorder - continue home zonesamide 200 qhs per neuro IV access:none Tubes/Drains:none DVT PPX: lovenox Anticipated Disposition: da, LUCAS working with [place] IPI Certification I certify that I am a D-H credentialed attending provider with admitting privileges and that the patient meets or has met medical necessity to require an inpatient IPI level of care meeting a minimumof two midnights or is on the CMS inpatient only procedure list (status C) due to: the patient has met Inpatient IPI criteria and is awaiting rehabilitation or half-way facility placement withactive referrals in process Team Pager(MD Coverage 27/01): #[phone] PCP: NAKIA Cifuentes [phone] DILLON KOCH MD 10/14/2017 * Skyla Aranda MD - 10/14/2017 5:52 AM EDT Orthopaedic Surgery Progress Note & 6 Week Follow Up Surgery/Issue: ORIF left acetabulum Attending: Dr. Lance Date of surgery: 09/04/2017 Subjective/Events: NAEON, doing well today, appears comfortable. Restful overnight. Per nursing he has been able to get up out of bed with the walker frequently throughout the day, is very dilligent on maintaining NWB on LLE. Patient has been able to move in the bed without any issues. Medically ready for rehab, however, returning to previously attended nursing home not an option rightnow (no room on 1st floor given weight bearing restrictions), SW working with expanding search to state of [place] and CM working to expand to SNF to accommodate the patient's needs. [place] disability willingto assist in any accepting facility Objcetive: Temp: [36.3 ??C (97.3 ??F)-36.5 ??C (97.7 ??F)] Resp: [16-20] BP: (142-146)/(97) Intake/Output Summary (Last 24 hours) at 10/14/17 0552 Last data filed at 10/13/17 1923 Gross per 24 hour Intake 1860 ml Output 575 ml Net 1285 ml Lab Results Component Value Date NA 140 10/13/2017 K 3.8 10/13/2017 CL 103 10/13/2017 CO2 24 10/13/2017 BUN 15 10/13/2017 CREATININE 0.88 10/13/2017 GLUCOSE 95 10/13/2017 CALCIUM 8.6 10/13/2017 Lab Results Component Value Date WBC 6.4 10/05/2017 HGB 11.1 (L) 10/05/2017 HCT 38.6 (L) 10/05/2017 MCV 86.4 10/05/2017 PLATELET 281 10/05/2017 Lab Results Component Value Date INR 1.1 09/03/2017 Exam: General: comfortable, resting in bed with sheet over head CV: RRR Resp: no increased work of breathing LLE: Anterior pelvic and left lower abdominal incisions c/d/i. Abdomen soft, non tender, no ecchymoses Unable to assess motor/sensory - formally but moving all 4 extremities in the bed Palpable DP/PT Imaging: XR pelvis IMPRESSION Unchanged osseous alignment. Difficult to identify interval callus formation/healing. No equipment complication seen. XR Judet IMPRESSION Stable bony alignment. Stable position internal fixation device. No appreciable overlying sclerosis or bony callus. ?? A/P: 27 y.o. male s/p ORIF left acetabular fx on 09/04/17. Progressing well post operatively. Furthercare per medicine, plan to work with PT/OT. He has been able to get up OOB and ambulate with walker. No changes to weight bearing status, will re-evaluate @ 1 month from now. Activity: NWB LLE, OK for stand pivot transfer on right leg only DVT prophylaxis: lovenox Closure: carisa are removed Dressings: may leave open to air now Follow up: to be re-tasked at discharge - please page #[phone] prior to discharge so follow up can be arranged. Skyla Aranda MD, PGY-1 Orthopaedic Surgery Pager #: [phone] Associated attestation - Amy Lance MD - 10/18/2017 8:21 AM EDT Patient seen and examined. Agree with resident note. Continue NWB LLE. PT/OOB. Mandy Lance MD Department of Orthopaedics 10/18/17 * Dillon Koch MD - 10/13/2017 7:36 AM EDT Hospital Medicine Attending Daily Progress Note Admit Date: 09/02/2017 Hospital Day 41 days Active Hospital Problems Diagnosis ??? S/P ORIF left acetabulum fracture 09/04/2017 Dr. Lance ??? Postoperative anemia due to acute blood loss ??? Diabetes insipidus ??? Adrenal insufficiency ??? Panhypopituitarism ??? Seizure disorder ??? Hypothyroidism Resolved Hospital Problems Diagnosis Date Resolved No resolved problems to display. PMH Active Non-Hospital Problems Diagnosis ??? Insomnia ??? Blind ??? CVA (cerebral vascular accident) ??? Urinary incontinence Inpatient Medications: Scheduled ??? HYDROmorphone 6 mg Oral Nightly ??? desmopressin 0.05 mg Oral 3 times per day ??? methyl salicylate-menthol Topical (Top) BID ??? calcium carbonate 500 mg Oral BID ??? cholecalciferol (Vitamin D3) 1,000 Units Oral Daily ??? hydrocortisone 20 mg Oral QAM ??? hydrocortisone 10 mg Oral Daily at Noon ??? hydrocortisone 10 mg Oral Q24H ??? enoxaparin 40 mg Subcutaneous Nightly ??? levothyroxine 150 mcg Oral QAM ??? melatonin 3 mg Oral Nightly ??? pantoprazole 40 mg Oral QAM AC ??? QUEtiapine 250 mg Oral Nightly ??? traZODone 50 mg Oral Nightly ??? zonisamide 200 mg Oral Nightly Continuous infusions: PRN: HYDROmorphone, bisacodyl, LORazepam, haloperidol, polyethylene glycol (MIRALAX)oral powder, senna-docusate, lidocaine, naphazoline-pheniramine Interval History: UOP not able to be recorded due to incontinence. Per caregiver at bedside reportedly had a good night. Unable to provide ROS due to nonverbal state. Physical Exam Vitals Range last 24 hrs Temperature Temp: [36 ??C (96.8 ??F)-37 ??C (98.6 ??F)] Heart Rate Heart Rate: -- Blood Pressure BP: (131-140)/(81-90) Respiratory Rate Resp: [20] SpO2 SpO2: [92 %-98 %] Intake/Output Summary (Last 24 hours) at 10/13/17 0736 Last data filed at 10/13/17 0642 Gross per 24 hour Intake 2100 ml Output 500 ml Net 1600 ml No data found. There is no height or weight on file to calculate BMI. General: young man in NAD, lying comfortably in bed HEENT: nc/at, perrl, eomi, op clear, mmmoist, anicteric sclera without conjunctival pallor MS: ONTIVEROS Ext: no c/c/e Neuro: CN II-XII intact, sensation grossly intact Skin: no lesions noted Studies reviewed in eDH. Remarkable for the following: LABS: Last wbc, hgb, hct plt No results for input(s): WBC, HGB, HCT in the last 72 hours. Invalid input(s): PLT Last 3 Lytes Recent Labs 10/13/17 0334 10/12/17 1909 10/12/17 1133 NA 144 148* 146* K 3.9 3.6 3.8 CL 105 106 108* CO2 23 26 22 BUN 16 17 19 CREATININE 0.74* 0.80 0.78* Assessment: Unfortunate 27 year old man with h/o recection of pituitary tumor complicated by interaoperative hemorrhage and CVA, cognitive impairment, cortical blindness, partial left-sided paralysis, seizure disorder and panhypopit (cDI, AI, hypothyroidism, hypogonadism) admitted with left acetabular fracture occurring during a possible seizure. He is s/p operative repair 09/04. He had issues withsodium and fluid homeostasis when his DDAVP was stopped, but these had resolved with restarting home DDAVP. Recently DDAVP was held as per orders to hold based on sodium level but polyuria has resumed with recurrence of hypernatremia, will adjust hold parameters to prevent recurrence and continue as per his home regimen including his home fluid intake. He is waiting for placement as he can't climb stairs (due to LLE NWB status) and his home facility has only a second floor room for him. Plan: * Hypernatremia in the setting of panhypopituitarism (with central DI, adrenal insufficiency, hypothyroidism, hypogonadism) - appreciate endocrine assistance - Continue TID DDAVP (will appropriate hold parameters), encourage PO intake of upwards of 3.2L as per endocrine (or 110oz) - Continue BMP q8h until UOP and serum Na normalize - Continue home hydrocortisone, levothyroxine - androgel currently on hold but could be easily be resumed as is available from patient's own stock - Calcium with Vit D recommended on discharge * Left acetabular fracture s/p operative repair on 09/04 - NWB LLE for at least another month (through November), ok for stand pivot transfer from wheelchair perortho - dilaudid prn, but will also schedule 6mg dose at night to help limit nighttime agitation that is suspected to be pain related * Seizure disorder - continue home zonesamide 200 qhs per neuro IV access:none Tubes/Drains:none DVT PPX: lovenox Anticipated Disposition: unclear, CM working with [place] IPI Certification I certify that I am a D-H credentialed attending provider with admitting privileges and that the patient meets or has met medical necessity to require an inpatient IPI level of care meeting a minimumof two midnights or is on the [facility] inpatient only procedure list (status C) due to: the patient has met Inpatient IPI criteria and is awaiting rehabilitation or half-way facility placement withactive referrals in process Team Pager(MD Coverage 27/01): #[phone] PCP: NAKIA Cifuentes [phone] DILLON KOCH MD 10/13/2017 * Crista Diaz RN - 10/12/2017 11:30 PM EDT Care of patients transferred to Lori Das RN. Report given. * Dillon Koch MD - 10/12/2017 7:53 AM EDT Hospital Medicine Attending Daily Progress Note Admit Date: 09/02/2017 Hospital Day 40 days Active Hospital Problems Diagnosis ??? S/P ORIF left acetabulum fracture 09/04/2017 Dr. Lance ??? Postoperative anemia due to acute blood loss ??? Diabetes insipidus ??? Adrenal insufficiency ??? Panhypopituitarism ??? Seizure disorder ??? Hypothyroidism Resolved Hospital Problems Diagnosis Date Resolved No resolved problems to display. PMH Active Non-Hospital Problems Diagnosis ??? Insomnia ??? Blind ??? CVA (cerebral vascular accident) ??? Urinary incontinence Inpatient Medications: Scheduled ??? desmopressin 0.05 mg Oral 3 times per day ??? methyl salicylate-menthol Topical (Top) BID ??? calcium carbonate 500 mg Oral BID ??? cholecalciferol (Vitamin D3) 1,000 Units Oral Daily ??? hydrocortisone 20 mg Oral QAM ??? hydrocortisone 10 mg Oral Daily at Noon ??? hydrocortisone 10 mg Oral Q24H ??? enoxaparin 40 mg Subcutaneous Nightly ??? levothyroxine 150 mcg Oral QAM ??? melatonin 3 mg Oral Nightly ??? pantoprazole 40 mg Oral QAM AC ??? QUEtiapine 250 mg Oral Nightly ??? traZODone 50 mg Oral Nightly ??? zonisamide 200 mg Oral Nightly Continuous infusions: PRN: bisacodyl, LORazepam, HYDROmorphone, haloperidol, polyethylene glycol (MIRALAX)oral powder, senna-docusate, lidocaine, naphazoline-pheniramine Interval History: UOP not able to be recorded due to incontinence but 5 urinary occurrences noted in 24 hours. Per per diem, he did incredibly well with very limited agitation. Current caregivers indicate eagerness to provide fluids. Unable to provide ROS due to nonverbal state. Physical Exam Vitals Range last 24 hrs Temperature Temp: [36.6 ??C (97.9 ??F)-36.7 ??C (98.1 ??F)] Heart Rate Heart Rate: -- Blood Pressure BP: (125-136)/(76-96) Respiratory Rate Resp: [16-18] SpO2 SpO2: [90 %-92 %] Intake/Output Summary (Last 24 hours) at 10/12/17 0753 Last data filed at 10/12/17 0635 Gross per 24 hour Intake 2620 ml Output 0 ml Net 2620 ml No data found. There is no height or weight on file to calculate BMI. General: young man in NAD, lying comfortably in bed HEENT: nc/at, perrl, eomi, op clear, mmmoist, anicteric sclera without conjunctival pallor MS: ONTIVEROS Ext: no c/c/e Neuro: CN II-XII intact, sensation grossly intact Skin: no lesions noted Studies reviewed in eDH. Remarkable for the following: LABS: Last wbc, hgb, hct plt No results for input(s): WBC, HGB, HCT in the last 72 hours. Invalid input(s): PLT Last 3 Lytes Recent Labs 10/12/17 0334 10/11/17 2048 10/11/17 1146 NA 145 143 144 K 3.6 4.0 4.1 CL 104 102 104 CO2 26 22 22 BUN 20 22* 20 CREATININE 0.93 1.03 1.10 Assessment: Unfortunate 27 year old man with h/o recection of pituitary tumor complicated by interaoperative hemorrhage and CVA, cognitive impairment, cortical blindness, partial left-sided paralysis, seizure disorder and panhypopit (cDI, AI, hypothyroidism, hypogonadism) admitted with left acetabular fracture occurring during a possible seizure. He is s/p operative repair 09/04. He had issues withsodium and fluid homeostasis when his DDAVP was stopped, but these had resolved with restarting home DDAVP. Recently DDAVP was held as per orders to hold based on sodium level but polyuria has resumed with recurrence of hypernatremia, will adjust hold parameters to prevent recurrence and continue as per his home regimen but needs to have water correction enforced by caregivers to help correct hishypernatremia. He is waiting for placement as he can't climb stairs and his home facility has only a second floor room for him. Plan: * Hypernatremia in the setting of panhypopituitarism (with central DI, adrenal insufficiency, hypothyroidism, hypogonadism) - Continue TID DDAVP (will remove hold parameters), encourage PO intake of upwards of 2.5L as per endocrine (less than usual fluid intake of 3.2L or 110oz as per home regimen to avoid overly quick correction of hypernatremia) - Continue BMP q6h until UOP and serum Na normalize - Continue home hydrocortisone, levothyroxine, androgel - Calcium with Vit D recommended on discharge - appreciate endocrine assistance * Left acetabular fracture s/p operative repair on 09/04 - NWB LLE, ok for stand pivot transfer from wheelchair per ortho - repeat pelvis films performed yesterday, defer activity changes as per ortho pending their reviewof these films * Seizure disorder - continue home zonesamide 200 qhs per neuro IV access:none Tubes/Drains:none DVT PPX: lovenox Anticipated Disposition: unclear, CM working with [place] Team Pager(MD Coverage 27/01): #[phone] PCP: NAKIA Cifuentes [phone] DILLON KOCH MD 10/12/2017 * Christopher Hess MD - 10/11/2017 12:41 PM EDT Images from the original note were not included. 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 Endocrinology consult placed placed to help manage patients DI. ?? Interim Events: Patients now back on usual regimen of fluid restriction (liberalized to 2.5L) and TID dosing DDAVP dosing. Sodium just now coming back down. No mentation change reported by primary team. Patient is agitated, mostly at nighttime which is not new. Past Surgical History: Procedure Laterality Date ??? PRO OPEN CROSSCUTTER ROLLED GLASS FIX ACETABULAR FX Left 09/04/2017 @OPEN TREATMENT, ACETABULAR FX (WRVU 25.41) performed by Amy Lance MD at [facility] MAIN OR Allergies Allergen Reactions ??? Lopid [Gemfibrozil] Current Medications: Scheduled Meds: ??? desmopressin 0.05 mg Oral 3 times per day ??? methyl salicylate-menthol Topical (Top) BID ??? calcium carbonate 500 mg Oral BID ??? cholecalciferol (Vitamin D3) 1,000 Units Oral Daily ??? hydrocortisone 20 mg Oral QAM ??? hydrocortisone 10 mg Oral Daily at Noon ??? hydrocortisone 10 mg Oral Q24H ??? enoxaparin 40 mg Subcutaneous Nightly ??? levothyroxine 150 mcg Oral QAM ??? melatonin 3 mg Oral Nightly ??? pantoprazole 40 mg Oral QAM AC ??? QUEtiapine 250 mg Oral Nightly ??? traZODone 50 mg Oral Nightly ??? 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 DDAVP dosing was held once on 10/08/2018 and three times on 10/09/2017 for parameters hold if sodium not greater than 135. Subsequently, his sodium jackie to154. He has been placed back on his regimen of fluid restriction with TID dosing DDAVP and sodium now coming back to normal range. Plan: Continue DDAVP 0.05mg TID with dosing parameters to only hold ONE dose if sodium <135 Continue to monitor sodium, would recommend Q8 until patients condition more stabilized. Thank you for allowing us participate in the care of this patient. Patient was discussed with the attending provider, Dr. Hess. Lindsey Walsh, Endocrinology, Diabetes and Metabolism Fellow 10/11/2017 12:42 PM I reviewed this patient with Dr Walsh . I reviewed the santos portions of the history and physical exam, and reviewed pertinent lab data. I was involved in all medical decision making and agree with this plan. * Dillon Koch MD - 10/11/2017 8:17 AM EDT Hospital Medicine Attending Daily Progress Note Admit Date: 09/02/2017 Hospital Day 39 days Active Hospital Problems Diagnosis ??? S/P ORIF left acetabulum fracture 09/04/2017 Dr. Lance ??? Postoperative anemia due to acute blood loss ??? Diabetes insipidus ??? Adrenal insufficiency ??? Panhypopituitarism ??? Seizure disorder ??? Hypothyroidism Resolved Hospital Problems Diagnosis Date Resolved No resolved problems to display. PMH Active Non-Hospital Problems Diagnosis ??? Insomnia ??? Blind ??? CVA (cerebral vascular accident) ??? Urinary incontinence Inpatient Medications: Scheduled ??? desmopressin 0.05 mg Oral 3 times per day ??? methyl salicylate-menthol Topical (Top) BID ??? calcium carbonate 500 mg Oral BID ??? cholecalciferol (Vitamin D3) 1,000 Units Oral Daily ??? hydrocortisone 20 mg Oral QAM ??? hydrocortisone 10 mg Oral Daily at Noon ??? hydrocortisone 10 mg Oral Q24H ??? enoxaparin 40 mg Subcutaneous Nightly ??? levothyroxine 150 mcg Oral QAM ??? melatonin 3 mg Oral Nightly ??? pantoprazole 40 mg Oral QAM AC ??? QUEtiapine 250 mg Oral Nightly ??? traZODone 50 mg Oral Nightly ??? zonisamide 200 mg Oral Nightly Continuous infusions: PRN: bisacodyl, LORazepam, HYDROmorphone, haloperidol, polyethylene glycol (MIRALAX)oral powder, senna-docusate, lidocaine, naphazoline-pheniramine Interval History: UOP not able to be recorded due to incontinence but caregivers at bedside indicate he urinate twice overnight, which is a little on the high end of his typical routine as he usuallycan go the whole night without urinating. Was agitated yesterday evening requiring oral haloperidolbut per caregivers at bedside they indicate this is still normal behavior for him. Staff indicates possible concern that fluids may not have been encouraged by caregivers; current caregivers indicateeagerness to provide fluids and assist in showering today. Unable to provide ROS due to nonverbal state. Physical Exam Vitals Range last 24 hrs Temperature Temp: [36.8 ??C (98.2 ??F)-37.7 ??C (99.9 ??F)] Heart Rate Heart Rate: [82-111] Blood Pressure BP: (126-151)/(72-103) Respiratory Rate Resp: [15-18] SpO2 SpO2: [95 %-96 %] Intake/Output Summary (Last 24 hours) at 10/11/17 0817 Last data filed at 10/10/17 1800 Gross per 24 hour Intake 1800 ml Output 0 ml Net 1800 ml No data found. There is no height or weight on file to calculate BMI. General: young man in NAD, lying comfortably in bed HEENT: nc/at, perrl, eomi, op clear, mmmoist, anicteric sclera without conjunctival pallor MS: ONTIVEROS Ext: no c/c/e Neuro: CN II-XII intact, sensation grossly intact Skin: no lesions noted Studies reviewed in eDH. Remarkable for the following: LABS: Last wbc, hgb, hct plt No results for input(s): WBC, HGB, HCT in the last 72 hours. Invalid input(s): PLT Last 3 Lytes Recent Labs 10/11/17 0610/10/17200410/10/17 1124 NA 151* 153* 150* K 3.8 3.9 3.7 CL 109* 112* 111* CO2 24 23 23 BUN 21* 24* 20 CREATININE 1.09 1.35 1.01 Assessment: Unfortunate 27 year old man with h/o recection of pituitary tumor complicated by interaoperative hemorrhage and CVA, cognitive impairment, cortical blindness, partial left-sided paralysis, seizure disorder and panhypopit (cDI, AI, hypothyroidism, hypogonadism) admitted with left acetabular fracture occurring during a possible seizure. He is s/p operative repair 09/04. He had issues withsodium and fluid homeostasis when his DDAVP was stopped, but these had resolved with restarting home DDAVP. Recently DDAVP was held as per orders to hold based on sodium level but polyuria has resumed with recurrence of hypernatremia, will adjust hold parameters to prevent recurrence and continue as per his home regimen but needs to have water correction enforced by caregivers to help correct hishypernatremia. He is waiting for placement as he can't climb stairs and his home facility has only a second floor room for him. Plan: * Hypernatremia in the setting of panhypopituitarism (with central DI, adrenal insufficiency, hypothyroidism, hypogonadism) - Continue TID DDAVP (will remove hold parameters), encourage PO intake of upwards of 2.5L as per endocrine (less than usual fluid intake of 3.2L or 110oz as per home regimen to avoid overly quick correction of hypernatremia) - Continue BMP q6h until UOP and serum Na normalize - Continue home hydrocortisone, levothyroxine, androgel - Calcium with Vit D recommended on discharge * Left acetabular fracture s/p operative repair on 09/04 - NWB LLE, ok for stand pivot transfer from wheelchair per ortho - repeat pelvis films performed yesterday, defer activity changes as per ortho pending their reviewof these films * Seizure disorder - continue home zonesamide 200 qhs per neuro IV access:none Tubes/Drains:none DVT PPX: lovenox Anticipated Disposition: unclear, CM working with [facility] Team Pager(MD Coverage 27/01): #[phone] PCP: NAKIA Cifuentes [phone] DILLON KOCH MD 10/11/2017 * Chavez Kelsey RN - 10/10/2017 2:08 PM EDT OFFICE OF CARE MANAGEMENT Per review with SENIOR PROFESSIONAL SERVICES CONSULTANT she has spoken with state CM who suggests that [facility] open referrals for plmt statewide . Will ask RS to open referral to all SNF's in [place] per their recommendation. Per review with SENIOR PROFESSIONAL SERVICES CONSULTANT- Miguel Angel cortes is aware of this recommendation. * Marlene Boland MSW - 10/10/2017 12:47 PM EDT I was asked by Rosie Caruso RN to set up a complex care meeting for next week. I called patient's sister and guardian Bettina to see about her availability, and she says she will be able to come for a meeting Saturday 10/14 at 3. (Friday is her day off.) She appreciated my call and update; I told her wewere awaiting a response from Inez Jones. Bettina hoping we will hear back from Inez Jones today. I also called Noel Delores at [place] Medicaid state office, and left a message. I also called and spoke with Subha at [facility]. She will talk with her ovens supervisor Lc this pm, and let me know if they can attend. If they cannot attend in person, one or both of them should be able to participate by speaker phone. Subha asked if we had sent referrals to every SNF in [place]. We had not, but Radha will initiate those referrals today. Plan: Will contact medical team and nursing leadership to inform them about the meeting. 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 Endocrinology consult placed placed to help manage patients DI. Interim Events: Patients fluid restriction tightened from 3L to 2.5L 09/30/2017 because sodium continuously down trended. One patient started on this 2.5L fluid restriction and DDAVP TID dosing (closeto his home regimen) his sodium stabilized. Sodium checks were slowed given stabilization. DDAVP dosing was held on 10/09/2017 for parameters hold if sodium not greater than 135. Subsequently, his sodium is now 154. He has been given two doses of DDAVP since. Per nursing staff and caregiver at bedside, there is no change in his mentation or behavior.?? Past Surgical History: Procedure Laterality Date ??? PRO OPEN CROSSCUTTER ROLLED GLASS FIX ACETABULAR FX Left 09/04/2017 @OPEN TREATMENT, ACETABULAR FX (WRVU 25.41) performed by Amy Lance MD at [facility] MAIN OR Allergies Allergen Reactions ??? Lopid [Gemfibrozil] Current Medications: Scheduled Meds: ??? desmopressin 0.05 mg Oral 3 times per day ??? methyl salicylate-menthol Topical (Top) BID ??? calcium carbonate 500 mg Oral BID ??? cholecalciferol (Vitamin D3) 1,000 Units Oral Daily ??? hydrocortisone 20 mg Oral QAM ??? hydrocortisone 10 mg Oral Daily at Noon ??? hydrocortisone 10 mg Oral Q24H ??? enoxaparin 40 mg Subcutaneous Nightly ??? levothyroxine 150 mcg Oral QAM ??? melatonin 3 mg Oral Nightly ??? pantoprazole 40 mg Oral QAM AC ??? QUEtiapine 250 mg Oral Nightly ??? traZODone 50 mg Oral Nightly ??? 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 Endocrinology consult placed placed to help manage patients DI. Sodium checks were slowed given stabilization of sodium in attempt to get patient ready for discharge to supervisor [facility] care facility. DDAVP dosing was held once on 10/08/2018 and three times on 10/09/2017 for parameters hold if sodium not greater than 135. Subsequently, his sodium is now 154. He has been given two doses of DDAVP since. Plan: --- Monitor sodium every six hours --- Given patients sodium of 154, from 135 on 09/07, this may be considered chronic hyponatremia (48 hours) and avoiding rapid overcorrection becomes critical. Patient was given two doses of DDAVP thusfar, therefore monitoring for rebound to hyponatremia is santos through today --- Please adjust DDAVP order parameters to hold dose for one time if sodium less than 135 and ensure repeat sodium check if this is the case Thank you for allowing us participate in the care of this patient. Patient was discussed with the attending provider, Dr. Hess. Lindsey Walsh, DO Endocrinology, Diabetes and Metabolism Fellow 10/10/2017 8:49 AM I saw this patient with Dr Walsh . I reviewed the santos portions of the history and physical exam, and reviewed pertinent lab data. I answered all patient questions. I was involved in all medical decision making and agree with this plan. * Dillon Koch MD - 10/10/2017 8:02 AM EDT [facility] Medicine Attending Daily Progress Note Admit Date: 09/02/2017 Hospital Day 38 days Active Hospital Problems Diagnosis ??? S/P ORIF left acetabulum fracture 09/04/2017 Dr. Lance ??? Postoperative anemia due to acute blood loss ??? Diabetes insipidus ??? Adrenal insufficiency ??? Panhypopituitarism ??? Seizure disorder ??? Hypothyroidism Resolved Hospital Problems Diagnosis Date Resolved No resolved problems to display. PMH Active Non-Hospital Problems Diagnosis ??? Insomnia ??? Blind ??? CVA (cerebral vascular accident) ??? Urinary incontinence Inpatient Medications: Scheduled ??? desmopressin 0.05 mg Oral 3 times per day ??? methyl salicylate-menthol Topical (Top) BID ??? calcium carbonate 500 mg Oral BID ??? cholecalciferol (Vitamin D3) 1,000 Units Oral Daily ??? hydrocortisone 20 mg Oral QAM ??? hydrocortisone 10 mg Oral Daily at Noon ??? hydrocortisone 10 mg Oral Q24H ??? enoxaparin 40 mg Subcutaneous Nightly ??? levothyroxine 150 mcg Oral QAM ??? melatonin 3 mg Oral Nightly ??? pantoprazole 40 mg Oral QAM AC ??? QUEtiapine 250 mg Oral Nightly ??? traZODone 50 mg Oral Nightly ??? zonisamide 200 mg Oral Nightly Continuous infusions: PRN: bisacodyl, LORazepam, HYDROmorphone, haloperidol, polyethylene glycol (MIRALAX)oral powder, senna-docusate, lidocaine, naphazoline-pheniramine Interval History: Polyuria noted overnight after ddvap was held (as per hold parameters of Na 135. Unable to provide ROS due to nonverbal state but seen eating breakfast with the assistance of one ofhis caregivers. Physical Exam Vitals Range last 24 hrs Temperature Temp: [36.2 ??C (97.2 ??F)-36.9 ??C (98.4 ??F)] Heart Rate Heart Rate: [54-75] Blood Pressure BP: (132-135)/(88-89) Respiratory Rate Resp: [18-20] SpO2 SpO2: [92 %-96 %] Intake/Output Summary (Last 24 hours) at 10/10/17 0802 Last data filed at 10/09/17 1535 Gross per 24 hour Intake 1100 ml Output 0 ml Net 1100 ml No data found. There is no height or weight on file to calculate BMI. General: young man in NAD, lying comfortably in bed HEENT: nc/at, perrl, eomi, op clear, mmmoist, anicteric sclera without conjunctival pallor MS: ONTIVEROS Ext: no c/c/e Neuro: CN II-XII intact, sensation grossly intact Skin: no lesions noted Studies reviewed in eDH. Remarkable for the following: LABS: Last wbc, hgb, hct plt No results for input(s): WBC, HGB, HCT in the last 72 hours. Invalid input(s): PLT Last 3 Lytes Recent Labs 10/10/17 0314 10/08/17 0415 10/07/17 0415 NA 154* 135 137 K 4.2 3.6 3.9 CL 114* 97* 99 CO2 23 22 22 BUN 20 13 12 CREATININE 0.91 0.82 0.80 Assessment: Unfortunate 27 year old man with h/o recection of pituitary tumor complicated by interaoperative hemorrhage and CVA, cognitive impairment, cortical blindness, partial left-sided paralysis, seizure disorder and panhypopit (cDI, AI, hypothyroidism, hypogonadism) admitted with left acetabular fracture occurring during a possible seizure. He is s/p operative repair 09/04. He had issues withsodium and fluid homeostasis when his DDAVP was stopped, but these had resolved with restarting home DDAVP. Recently DDAVP was held as per orders to hold based on sodium level but polyuria has resumed with recurrence of hypernatremia, will remove hold parameters and continue as per his home regimen. He is waiting for placement as he can't climb stairs and his home facility has only a second floorroom for him. Plan: * Hypernatremia in the setting of panhypopituitarism (with central DI, adrenal insufficiency, hypothyroidism, hypogonadism) - Continue TID DDAVP (will remove hold parameters), encourage PO intake of upwards of 3.1L (or 110 oz) of fluid daily - BMP q6h until UOP and serum Na normalize - Continue home hydrocortisone, levothyroxine, androgel - Calcium with Vit D recommended on discharge * Left acetabular fracture s/p operative repair on 09/04 - NWB LLE, ok for stand pivot transfer from wheelchair per ortho - repeat pelvis films performed yesterday, defer activity changes as per ortho pending their reviewof these films * Seizure disorder - continue home zonesamide 200 qhs per neuro IV access:none Tubes/Drains:none DVT PPX: lovenox Anticipated Disposition: unclear, CM working with [facility] Team Pager( Coverage 27/01): #[phone] PCP: NAKIA Cifuentes [phone] DILLON KOCH MD 10/10/2017 * Dayne Rm RN - 10/10/2017 3:07 AM EDT Called physician due to patient having urinary frequency and patient's sister concerned and upset over desmopressin being held. Orders received to have laboratory draw on patient and if sodium is greater than 145 give an early dose of desmopressin. Will continue to monitor. * Chavez Kelsey RN - 10/09/2017 3:04 PM EDT OFFICE OF CARE MANAGEMENT [facility]. [facility] bed. * Kurt Blanco - 10/09/2017 2:58 PM EDT Nutrition Services - Follow-up Note Miguel Angel Mason : 1990 AGE: 27 y.o. Patient Active Problem List Diagnosis Date Noted ??? *Hospital-S/P ORIF left acetabulum fracture 09/04/2017 Dr. Lance 09/02/2017 ??? Hospital-Postoperative anemia due to acute blood loss 09/04/2017 ??? Hospital-Diabetes insipidus 09/03/2017 ??? Hospital-Adrenal insufficiency 09/03/2017 ??? 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 Hospital-Seizure disorder 09/03/2017 ??? Insomnia 09/03/2017 ??? Blind 09/03/2017 ??? CVA (cerebral vascular accident) 09/03/2017 ??? Urinary incontinence 09/03/2017 ??? Hospital-Hypothyroidism 09/03/2017 Reason for Nutrition Intervention: Follow-up Diet Order: Regular Appetite: Good-per Caregiver Lili Food allergies: NKFA Chewing/Swallowing difficulty: none noted. Ht Readings from Last 3 Encounters: 09/07/17 177.8 cm (5' 10) Wt Readings from Last 3 Encounters: 09/04/17 86.6 kg (191 lb) There is no height or weight on file to calculate BMI. Vitamins/Minerals: Tums noted. Vitamin D3 noted. Assessment: Patient seen for scheduled nutrition follow up. Pt's caregiver Lili reported a good appetite without difficulty chewing or swallowing. Nursing documentation notes 100% PO intake. He is tolerating his current diet without nausea or vomiting. Added evening snack--celery & carrots sticks with ranch dressing. Nursing and caregivers are ordering pt's meals daily. Pt's caregiver had no further questions at this time. Encouraged pt's caregiver to contact Food and Nutrition services with any questions that may arise. Last noted bowel movement 10/07/17. Nutrition Plan: Continue current diet. Recommend Daily Multi Vitamins. Added snack. Encourage good po intake. Monitor weight. Support and encouragement provided. Nutrition services to follow weekly thru hospital course unless consulted in the interim. ADAM Kathleen Pager # [phone] * Jevon Rosales MD - 10/09/2017 11:13 AM EDT Hospital Medicine Attending Daily Progress Note Admit Date: 09/02/2017 Hospital Day 37 days Active Hospital Problems Diagnosis ??? S/P ORIF left acetabulum fracture 09/04/2017 Dr. Lance ??? Postoperative anemia due to acute blood loss ??? Diabetes insipidus ??? Adrenal insufficiency ??? Panhypopituitarism ??? Seizure disorder ??? Hypothyroidism Resolved Hospital Problems Diagnosis Date Resolved No resolved problems to display. PMH Active Non-Hospital Problems Diagnosis ??? Insomnia ??? Blind ??? CVA (cerebral vascular accident) ??? Urinary incontinence Inpatient Medications: Scheduled ??? desmopressin 0.05 mg Oral 3 times per day ??? methyl salicylate-menthol Topical (Top) BID ??? calcium carbonate 500 mg Oral BID ??? cholecalciferol (Vitamin D3) 1,000 Units Oral Daily ??? hydrocortisone 20 mg Oral QAM ??? hydrocortisone 10 mg Oral Daily at Noon ??? hydrocortisone 10 mg Oral Q24H ??? enoxaparin 40 mg Subcutaneous Nightly ??? levothyroxine 150 mcg Oral QAM ??? melatonin 3 mg Oral Nightly ??? pantoprazole 40 mg Oral QAM AC ??? QUEtiapine 250 mg Oral Nightly ??? traZODone 50 mg Oral Nightly ??? zonisamide 200 mg Oral Nightly Continuous infusions: PRN: bisacodyl, LORazepam, HYDROmorphone, haloperidol, polyethylene glycol (MIRALAX)oral powder, senna-docusate, lidocaine, naphazoline-pheniramine Interval History: uneventful Physical Exam Vitals Range last 24 hrs Temperature Temp: [35.9 ??C (96.6 ??F)-36.8 ??C (98.2 ??F)] Heart Rate Heart Rate: [82-123] Blood Pressure BP: (130-167)/(85-109) Respiratory Rate Resp: [18-22] SpO2 SpO2: [92 %-95 %] Intake/Output Summary (Last 24 hours) at 10/09/17 1113 Last data filed at 10/09/17 0900 Gross per 24 hour Intake 1070 ml Output 0 ml Net 1070 ml No data found. There is no height or weight on file to calculate BMI. General: young man in NAD, lying comfortably in bed HEENT: nc/at, perrl, eomi, op clear, mmmoist, anicteric sclera without conjunctival pallor MS: ONTIVEROS Ext: no c/c/e Neuro: CN II-XII intact, sensation grossly intact Skin: no lesions noted Studies reviewed in eDH. Remarkable for the following: LABS: Last wbc, hgb, hct plt No results for input(s): WBC, HGB, HCT in the last 72 hours. Invalid input(s): PLT Last 3 Lytes Recent Labs 10/08/17 0415 10/07/17 0415 10/06/17 0405 NA 135 137 145 K 3.6 3.9 3.7 CL 97* 99 104 CO2 22 22 27 BUN 13 12 18 CREATININE 0.82 0.80 0.88 Assessment: Unfortunate 27 year old man with h/o recection of pituitary tumor complicated by interaoperative hemorrhage and CVA, cognitive impairment, cortical blindness, partial left-sided paralysis, seizure disorder and panhypopit (cDI, AI, hypothyroidism, hypogonadism) admitted with left acetabular fracture occurring during a possible seizure. He is s/p operative repair 09/04. He had issues withsodium and fluid homeostasis when his DDAVP was stopped, but these have resolved with restarting home DDAVP. He is waiting for placement as he can't climb stairs and his home facility has only a second floor room for him. Plan: Endo: Continue TID DDAVP with encouragement to take up to 2.5L fluid Continue home hydrocortisone, levothyroxine, androgel Calcium with Vit D recommended on discharge BMPs QOD given stability Ortho: S/p operative repair 09/04, re-task f/u on discharge NWB LLE, ok for stand pivot transfer from wheelchair per ortho Repeat pelvis xray on 10/09 to assess for healing and determine weight bearing status -> ordered today Neuro: Continue home zonesamide 200 qhs per neuro IV access:none Tubes/Drains:none DVT PPX: lovenox Anticipated Disposition: unclear, CM working with [facility] Goals of Care: Full Team Pager(MD Coverage 27/01): #[phone] PCP: NAKIA Cifuentes [phone] JEVON ROSALES MD 10/09/2017 * Skyla Ayala OT - 10/08/2017 3:56 PM EDT Occupational Therapy Note Spoke with ZULAM, and adjusted goals for bathing and therapeutic activity in doc flow. TERRELL aVnce Pager [phone] * Jevon Rosales MD - 10/08/2017 11:54 AM EDT Hospital Medicine Attending Daily Progress Note Admit Date: 09/02/2017 Hospital Day 36 days Active Hospital Problems Diagnosis ??? S/P ORIF left acetabulum fracture 09/04/2017 Dr. Lance ??? Postoperative anemia due to acute blood loss ??? Diabetes insipidus ??? Adrenal insufficiency ??? Panhypopituitarism ??? Seizure disorder ??? Hypothyroidism Resolved Hospital Problems Diagnosis Date Resolved No resolved problems to display. PMH Active Non-Hospital Problems Diagnosis ??? Insomnia ??? Blind ??? CVA (cerebral vascular accident) ??? Urinary incontinence Inpatient Medications: Scheduled ??? desmopressin 0.05 mg Oral 3 times per day ??? methyl salicylate-menthol Topical (Top) BID ??? calcium carbonate 500 mg Oral BID ??? cholecalciferol (Vitamin D3) 1,000 Units Oral Daily ??? hydrocortisone 20 mg Oral QAM ??? hydrocortisone 10 mg Oral Daily at Noon ??? hydrocortisone 10 mg Oral Q24H ??? enoxaparin 40 mg Subcutaneous Nightly ??? levothyroxine 150 mcg Oral QAM ??? melatonin 3 mg Oral Nightly ??? pantoprazole 40 mg Oral QAM AC ??? QUEtiapine 250 mg Oral Nightly ??? traZODone 50 mg Oral Nightly ??? zonisamide 200 mg Oral Nightly Continuous infusions: PRN: bisacodyl, LORazepam, HYDROmorphone, haloperidol, polyethylene glycol (MIRALAX)oral powder, senna-docusate, lidocaine, naphazoline-pheniramine Interval History: uneventful; electrolytes normal Physical Exam Vitals Range last 24 hrs Temperature Temp: [35.1 ??C (95.2 ??F)-36.3 ??C (97.3 ??F)] Heart Rate Heart Rate: [82-86] Blood Pressure BP: (132-134)/(82-93) Respiratory Rate Resp: [16-20] SpO2 SpO2: [96 %-100 %] Intake/Output Summary (Last 24 hours) at 10/08/17 1154 Last data filed at 10/08/17 0600 Gross per 24 hour Intake 930 ml Output 0 ml Net 930 ml No data found. There is no height or weight on file to calculate BMI. General: young man in NAD, lying comfortably in bed HEENT: nc/at, perrl, eomi, op clear, mmmoist, anicteric sclera without conjunctival pallor MS: ONTIVEROS Ext: no c/c/e Neuro: CN II-XII intact, sensation grossly intact Skin: no lesions noted Studies reviewed in eDH. Remarkable for the following: LABS: Last wbc, hgb, hct plt No results for input(s): WBC, HGB, HCT in the last 72 hours. Invalid input(s): PLT Last 3 Lytes Recent Labs 10/08/17 0415 10/07/17 0415 10/06/17 0405 NA 135 137 145 K 3.6 3.9 3.7 CL 97* 99 104 CO2 22 22 27 BUN 13 12 18 CREATININE 0.82 0.80 0.88 Assessment: Unfortunate 27 year old man with h/o recection of pituitary tumor complicated by interaoperative hemorrhage and CVA, cognitive impairment, cortical blindness, partial left-sided paralysis, seizure disorder and panhypopit (cDI, AI, hypothyroidism, hypogonadism) admitted with left acetabular fracture occurring during a possible seizure. He is s/p operative repair 09/04. He had issues withsodium and fluid homeostasis when his DDAVP was stopped, but these have resolved with restarting home DDAVP. He is waiting for placement as he can't climb stairs and his home facility has only a second floor room for him. Plan: Endo: Continue TID DDAVP with encouragement to take up to 2.5L fluid Continue home hydrocortisone, levothyroxine, androgel Calcium with Vit D recommended on discharge Changing BMPs to QOD Ortho: S/p operative repair 09/04, re-task f/u on discharge NWB LLE, ok for stand pivot transfer from wheelchair per ortho Repeat pelvis xray on 10/09 to assess for healing and determine weight bearing status Neuro: Continue home zonesamide 200 qhs per neuro IV access:none Tubes/Drains:none DVT PPX: lovenox Anticipated Disposition: unclear, CM working with [place] Goals of Care: Full Team Pager(MD Coverage 27/01): #[phone] PCP: NAKIA Cifuentes [phone] JEVON ROSALES MD 10/08/2017 * Chavez Kelsey RN - 10/07/2017 1:36 PM EDT OFFICE OF CARE MANAGEMENT [facility] and she explains she has been reaching out to a variety of facilities. She has communicated with facility called [facility] in [facility]. She explains she has spoken with admission coordinator Mavis. Subha explains in her discussion with admission coordinator,she explains they are willing to review for skilled stay for this gentleman and have had experiencewith challenging patient's in past. We discussed his nursing home continue to seek out appropriate first level housing to meet miguel angel'sWB limits at this time. Subha has already discussed this option with Miguel Angel Sister Bettina and while this [facility] they are all in agreement it is acceptable;e to open option for referral. At this time, will expand referral option to include - [facility] in [facility]. They request information be faxed : Att Mavis- * Jevon Rosales MD - 10/07/2017 10:48 AM EDT Hospital Medicine Attending Daily Progress Note Admit Date: 09/02/2017 Hospital Day 35 days Active Hospital Problems Diagnosis ??? S/P ORIF left acetabulum fracture 09/04/2017 Dr. Lance ??? Postoperative anemia due to acute blood loss ??? Diabetes insipidus ??? Adrenal insufficiency ??? Panhypopituitarism ??? Seizure disorder ??? Hypothyroidism Resolved Hospital Problems Diagnosis Date Resolved No resolved problems to display. PMH Active Non-Hospital Problems Diagnosis ??? Insomnia ??? Blind ??? CVA (cerebral vascular accident) ??? Urinary incontinence Inpatient Medications: Scheduled ??? desmopressin 0.05 mg Oral 3 times per day ??? methyl salicylate-menthol Topical (Top) BID ??? calcium carbonate 500 mg Oral BID ??? cholecalciferol (Vitamin D3) 1,000 Units Oral Daily ??? hydrocortisone 20 mg Oral QAM ??? hydrocortisone 10 mg Oral Daily at Noon ??? hydrocortisone 10 mg Oral Q24H ??? enoxaparin 40 mg Subcutaneous Nightly ??? levothyroxine 150 mcg Oral QAM ??? melatonin 3 mg Oral Nightly ??? pantoprazole 40 mg Oral QAM AC ??? QUEtiapine 250 mg Oral Nightly ??? traZODone 50 mg Oral Nightly ??? zonisamide 200 mg Oral Nightly Continuous infusions: PRN: bisacodyl, LORazepam, HYDROmorphone, haloperidol, polyethylene glycol (MIRALAX)oral powder, senna-docusate, lidocaine, naphazoline-pheniramine Interval History: up overnight, sleeping this AM Physical Exam Vitals Range last 24 hrs Temperature Temp: [36.4 ??C (97.5 ??F)-36.7 ??C (98.1 ??F)] Heart Rate Heart Rate: [100] Blood Pressure BP: (134-147)/(89-104) Respiratory Rate Resp: [18-19] SpO2 SpO2: -- Intake/Output Summary (Last 24 hours) at 10/07/17 1048 Last data filed at 10/07/17 0600 Gross per 24 hour Intake 2515 ml Output 0 ml Net 2515 ml No data found. There is no height or weight on file to calculate BMI. General: young man in NAD, lying comfortably in bed HEENT: nc/at, perrl, eomi, op clear, mmmoist, anicteric sclera without conjunctival pallor MS: ONTIVEROS Ext: no c/c/e Neuro: CN II-XII intact, sensation grossly intact Skin: no lesions noted Studies reviewed in eDH. Remarkable for the following: LABS: Last wbc, hgb, hct plt Recent Labs 10/05/17 0555 WBC 6.4 HGB 11.1* HCT 38.6* Last 3 Lytes Recent Labs 10/07/17 0415 10/06/17 0405 10/05/17 1435 NA 137 145 148* K 3.9 3.7 4.0 CL 99 104 105 CO2 22 27 28 BUN 12 18 18 CREATININE 0.80 0.88 1.03 Assessment: Unfortunate 27 year old man with h/o recection of pituitary tumor complicated by interaoperative hemorrhage and CVA, cognitive impairment, cortical blindness, partial left-sided paralysis, seizure disorder and panhypopit (cDI, AI, hypothyroidism, hypogonadism) admitted with left acetabular fracture occurring during a possible seizure. He is s/p operative repair 09/04. He had issues withsodium and fluid homeostasis when his DDAVP was stopped, but these have resolved with restarting home DDAVP. He is waiting for placement as he can't climb stairs and his home facility has only a second floor room for him. Plan: Endo: Continue TID DDAVP with encouragement to take up to 2.5L fluid Continue home hydrocortisone, levothyroxine, androgel Calcium with Vit D recommended on discharge Ortho: S/p operative repair 09/04, re-task f/u on discharge NWB LLE, ok for stand pivot transfer from wheelchair per ortho Repeat pelvis xray on 10/09 to assess for healing and determine weight bearing status Neuro: Continue home zonesamide 200 qhs per neuro IV access:none Tubes/Drains:none DVT PPX: lovenox Anticipated Disposition: unclear, CM working with [place] Goals of Care: Full Team Pager(MD Coverage 27/01): #[phone] PCP: NAKIA Cifuentes [phone] JEVON ROSALES MD 10/07/2017 * Skyla Aranda MD - 10/07/2017 5:16 AM EDT Orthopaedic Surgery Progress Note Surgery/Issue: ORIF left acetabulum Attending: Dr. Lance Date of surgery: 09/04/2017 Subjective/Events: AMPARO, doing well today, appears comfortable. Per nursing he has been able to get up out of bed with the walker frequently throughout the day. Patient has been able to move in the bed without any issues. Medically ready, however, returning to previously attended nursing home not an option right now (no room on 1st floor), SW working with expanding search to state of [place] to accommodate the patient's needs. [place] disability willing to assist in any accepting facility Objcetive: Temp: [36.6 ??C (97.9 ??F)-36.7 ??C (98.1 ??F)] Resp: [19] BP: (143-147)/(89-104) Intake/Output Summary (Last 24 hours) at 10/07/17 0516 Last data filed at 10/06/17 2100 Gross per 24 hour Intake 2515 ml Output 0 ml Net 2515 ml Lab Results Component Value Date NA 137 10/07/2017 K 3.9 10/07/2017 CL 99 10/07/2017 CO2 22 10/07/2017 BUN 12 10/07/2017 CREATININE 0.80 10/07/2017 GLUCOSE 95 10/07/2017 CALCIUM 9.0 10/07/2017 Lab Results Component Value Date WBC 6.4 10/05/2017 HGB 11.1 (L) 10/05/2017 HCT 38.6 (L) 10/05/2017 MCV 86.4 10/05/2017 PLATELET 281 10/05/2017 Lab Results Component Value Date INR 1.1 09/03/2017 Exam: General: restless this evening, screaming in bed, but appears to be comfortable CV: RRR Resp: no increased work of breathing LLE: Anterior pelvic and left lower abdominal incisions c/d/i. Abdomen soft, non tender, no ecchymoses Unable to assess motor/sensory - formally but moving all 4 extremities in the bed Palpable DP/PT A/P: 27 y.o. male s/p ORIF left acetabular fx on 09/04/17. Progressing well post operatively. Furthercare per medicine, plan to work with PT/OT. He has been able to get up OOB and ambulate with walker. Activity: NWB LLE, OK for stand pivot transfer on right leg only DVT prophylaxis: lovenox Closure: carisa are removed Dressings: may leave open to air now Follow up: to be re-tasked at discharge Skyla Aranda MD, PGY-1 Orthopaedic Surgery Pager #: [phone] Associated attestation - Amy Lance MD - 10/09/2017 6:02 AM EDT Patient seen and examined. Agree with resident note. Dispo planning. Mandy Lance MD Department of Orthopaedics 10/09/17 * Tez Tate MSW - 10/06/2017 11:10 AM EDT SW reviewed the patient chart and the pt is ready for D/C, however the pt is having issues with placement. The pt is unable to return home due to the home environment not being able to accommodate the pt. The pt lives in a nursing home and rooms are on the 2nd floor. Due to privacy and state guidelines, the pt can not be placed in any open areas, which means that a hospital bed can not be placed onthe first floor for the pt.PRANEETH also spoke with the pt sister and informed her that multiple referrals over the state f [place] will need to be sent out for the patient, as the pt is medically ready for D.C. The SW did speak with the state fire marshal of the nursing home who states that he is continuing to locate housing that can accommodate the pt. The SW sent out multiple referrals and awaiting to see if the pt canbe accepted. [facility] is willing to provide additional care for the pt of 27/01 to assist any accepting facility. PRANEETH sent an email to SW Dining Room Manager, Interim Director, Educator and CM to reach out for any other ideas or assistance in cordinating a safe D/C for the pt. SW to remain available as needed for D/C planningand coordination. Tez Tate Pager [phone] * Tez Tate MSW - 10/06/2017 11:00 AM EDT Based on discussions with the multi-disciplinary healthcare team, the patient would benefit from skilled level of care at discharge. ?? I have met with the patient/insurance sales representative to discuss discharge planning needs. I have provided the [facility], Office of Care Management letter from the [employer] pertaining to rehab referrals. I have also provided a letter describing our affiliations within the [facility] and educated them about their right to choose where referrals are placed. ?? I reviewed the different levels of rehab including SNF, swing, acute and LTAC with the patient/insurance sales representative. ?? The patient/insurance sales representative has been provided a list of facilities within their preferred geographic area. ?? I have requested that the patient/insurance sales representative provide at least three choices for referral. ?? The patient/insurance sales representative have requested referrals to: 1. [facility] 2. [facility] 3. [facility] 4. [facility] 5. [facility] 6. [facility] [employer] [facility] 7. [facility] ?? Expected date of discharge: 10/06/17 Note routed to Audit Director who will communicate referrals to facilities and provide any required information. * Jevon Rosales MD - 10/06/2017 10:52 AM EDT Hospital Medicine Attending Daily Progress Note Admit Date: 09/02/2017 Hospital Day 33 days Active Hospital Problems Diagnosis ??? S/P ORIF left acetabulum fracture 09/04/2017 Dr. Lance ??? Postoperative anemia due to acute blood loss ??? Diabetes insipidus ??? Adrenal insufficiency ??? Panhypopituitarism ??? Seizure disorder ??? Hypothyroidism Resolved Hospital Problems Diagnosis Date Resolved No resolved problems to display. [facility] Active Non-Hospital Problems Diagnosis ??? Insomnia ??? Blind ??? CVA (cerebral vascular accident) ??? Urinary incontinence Inpatient Medications: Scheduled ??? desmopressin 0.05 mg Oral 3 times per day ??? methyl salicylate-menthol Topical (Top) BID ??? calcium carbonate 500 mg Oral BID ??? cholecalciferol (Vitamin D3) 1,000 Units Oral Daily ??? hydrocortisone 20 mg Oral QAM ??? hydrocortisone 10 mg Oral Daily at Noon ??? hydrocortisone 10 mg Oral Q24H ??? enoxaparin 40 mg Subcutaneous Nightly ??? levothyroxine 150 mcg Oral QAM ??? melatonin 3 mg Oral Nightly ??? pantoprazole 40 mg Oral QAM AC ??? QUEtiapine 250 mg Oral Nightly ??? traZODone 50 mg Oral Nightly ??? zonisamide 200 mg Oral Nightly Continuous infusions: PRN: bisacodyl, LORazepam, HYDROmorphone, haloperidol, polyethylene glycol (MIRALAX)oral powder, senna-docusate, lidocaine, naphazoline-pheniramine Interval History: Inconsolable and screaming for much of shift, slept well Physical Exam Vitals Range last 24 hrs Temperature Temp: [36.3 ??C (97.3 ??F)] Heart Rate Heart Rate: [107] Blood Pressure BP: (155)/(91) Respiratory Rate Resp: [22] SpO2 SpO2: [96 %] Intake/Output Summary (Last 24 hours) at 10/05/17 2217 Last data filed at 10/05/17 1840 Gross per 24 hour Intake 2740 ml Output 0 ml Net 2740 ml No data found. There is no height or weight on file to calculate BMI. General: young man in NAD, lying comfortably in bed HEENT: nc/at, perrl, eomi, op clear, mmmoist, anicteric sclera without conjunctival pallor, Lungs: CTAB no wheezing CV: tachy but regular, s1 s2, no m/r/g, dps good bilaterally MS: 5/5 B UE & LE Ext: no c/c/e Neuro: CN II-XII intact, sensation grossly intact Skin: no lesions noted Abd: soft nt/nd/ng +BS no hsm Studies reviewed in eDH. Remarkable for the following: LABS: Last wbc, hgb, hct plt Recent Labs 10/05/17 0555 WBC 6.4 HGB 11.1* HCT 38.6* Last 3 Lytes Recent Labs 10/05/17 1435 10/05/17 0351 10/04/17 1909 NA 148* 148* 147* K 4.0 3.9 3.7 CL 105 107 104 CO2 28 27 29 BUN 18 19 19 CREATININE 1.03 1.07 1.16 Assessment: Unfortunate 27 year old man with h/o recection of pituitary tumor complicated by interaoperative hemorrhage and CVA, cognitive impairment, cortical blindness, partial left-sided paralysis, seizure disorder and panhypopit (cDI, AI, hypothyroidism, hypogonadism) admitted with left acetabular fracture occurring during a possible seizure. He is s/p operative repair 09/04. He had issues withsodium and fluid homeostasis when his DDAVP was stopped, but these have resolved with restarting home DDAVP. He is waiting for placement as he can't climb stairs and his home facility has only a second floor room for him. Plan: Endo: Continue TID DDAVP with encouragement to take up to 2.5L fluid Continue home hydrocortisone, levothyroxine, androgel Calcium with Vit D recommended on discharge Ortho: S/p operative repair 09/04, re-task f/u on discharge NWB LLE, ok for stand pivot transfer from wheelchair per ortho Repeat pelvis xray on 10/09 to assess for healing and determine weight bearing status Neuro: Continue home zonesamide 200 qhs per neuro IV access:none Tubes/Drains:none DVT PPX: lovenox Anticipated Disposition: unclear, CM working with [place] Goals of Care: Full Team Pager(MD Coverage 27/01): #[phone] PCP: NAKIA Cifuentes [phone] JEVON ROSALES MD 10/05/2017 * Reba Linton MD - 10/05/2017 2:15 PM EDT Hospital Medicine Daily Progress Note Admit Date: 09/02/2017 Hospital Day 33 days Active Hospital Problems Diagnosis ??? S/P ORIF left acetabulum fracture 09/04/2017 Dr. Lance ??? Postoperative anemia due to acute blood loss ??? Diabetes insipidus ??? Adrenal insufficiency ??? Panhypopituitarism ??? Seizure disorder ??? Hypothyroidism Resolved Hospital Problems Diagnosis Date Resolved No resolved problems to display. PMH Active Non-Hospital Problems Diagnosis ??? Insomnia ??? Blind ??? CVA (cerebral vascular accident) ??? Urinary incontinence Inpatient Medications: Scheduled ??? desmopressin 0.05 mg Oral 3 times per day ??? methyl salicylate-menthol Topical (Top) BID ??? calcium carbonate 500 mg Oral BID ??? cholecalciferol (Vitamin D3) 1,000 Units Oral Daily ??? hydrocortisone 20 mg Oral QAM ??? hydrocortisone 10 mg Oral Daily at Noon ??? hydrocortisone 10 mg Oral Q24H ??? enoxaparin 40 mg Subcutaneous Nightly ??? levothyroxine 150 mcg Oral QAM ??? melatonin 3 mg Oral Nightly ??? pantoprazole 40 mg Oral QAM AC ??? QUEtiapine 250 mg Oral Nightly ??? traZODone 50 mg Oral Nightly ??? zonisamide 200 mg Oral Nightly Continuous infusions: PRN: bisacodyl, LORazepam, HYDROmorphone, haloperidol, polyethylene glycol (MIRALAX)oral powder, senna-docusate, lidocaine, naphazoline-pheniramine ID: 27 y/o man with pmhx history of??resection of pituitary tumor, intraoperative hemorrhage and??CVA, cognitive impairment, cortical blindness, partial L sided paralysis, seizure disorder, and panhypopituitarism (with DI, adrenal insufficiency, hypothyroidism, hypogonadism) here with a left acetabular fracture that occurred in the setting of a possible seizure. Interval History: No acute events. Total PO intake 840 cc. Review of Systems: Unable to obtain full review of systems due to patient's mental status Physical Exam Vitals Range last 24 hrs Temperature Temp: [36.6 ??C (97.9 ??F)] Heart Rate Heart Rate: -- Blood Pressure BP: (137-165)/(88-90) Respiratory Rate Resp: [18-19] SpO2 SpO2: [95 %] Intake/Output Summary (Last 24 hours) at 10/05/17 1415 Last data filed at 10/05/17 1400 Gross per 24 hour Intake 1710 ml Output 0 ml Net 1710 ml No data found. Gen: NAD, eating breakfast CV: Tachycardic, regular rhythm, no murmurs/rubs/gallops auscultated Pulm: No respiratory distress, CTA bilaterally Abd: Non-distended, lower abd incision healing well with some minimal surrounding erythema, no tenderness to palpation Ext: No pedal edema, 2+ radial/DP pulses Skin: Warm, dry, no rashes LABS: Last 3 wbc, hgb, hct plt Recent Labs 10/05/17 0555 09/19/17 0321 09/18/17 0546 WBC 6.4 7.4 6.6 HGB 11.1* 9.1* 8.2* HCT 38.6* 31.4* 26.2* PLATELET 281 648* 580* Last 3 Lytes Recent Labs 10/05/17 0351 10/04/17 1909 10/04/17 1248 NA 148* 147* 147* K 3.9 3.7 3.8 CL 107 104 103 CO2 27 29 29 BUN 19 19 20 CREATININE 1.07 1.16 0.97 IMAGING: Pelvis Xray 09/23: Prior fixation of the left pelvic fracture. No change in appearance. Assessment: 27 y/o man with pmhx history of??resection of pituitary tumor, intraoperative hemorrhage and??CVA, cognitive impairment, cortical blindness, partial L sided paralysis, seizure disorder, and panhypopituitarism (with DI, adrenal insufficiency, hypothyroidism, hypogonadism) here with a left acetabular fracture that occurred in the setting of a possible seizure. ?? He is now s/p operative repair on 09/04 with post operative course c/b issues with sodium and fluid homeostasis for which he is now on his home regimen of DDAVP. There are intermittent fluctuations that are primarily in the setting of his variable fluid intake. He must be encouraged to drink to his new 2.5 L (previously 3L at home) fluid restriction given his thirst drive is impaired. Nursing and bedside facility staff are being reminded of this daily. ?? Plan: # Panhypopituitarism # Acute Hyponatremia (resolved) - DI: Remains hypernatremic today given poor PO intake yesterday. Continue daily chemistry. Continue TID DDAVP. Continue fluid restriction 2.5L. PATIENT NEEDS TO BE PROMPTED TO DRINK. - Adrenal insufficiency - Continue home hydrocortisone (20mg at 0700, 10mg at 1200 and 1900) - Hypothyroidism - TFT's at goal - continue levothyroxine 150 mcg - Hypogonadism - will continue androgel supplementation outpatient - Appreciate Endocrine input on all of the above ?? # Acetabular fracture - S/p operative repair 09/04 - Continue pain control with scheduled tylenol and prn po dilaudid - Continue DVT ppx with lovenox - PT/OT: NWB LLE, OK for stand pivot transfer from wheelchair per Ortho - Repeat pelvis xray on 10/09 to assess for healing and determine weight bearing status ? # Anemia, suspected due to iatrogenic cause - Responded appropriately to 1U PRBC on 09/16 - Will continue to monitor for changes in symptoms - Minimizing blood draws otherwise where able ?? # Seizure d/o with breakthrough seizure after no seizures for 4 years: Stable. - S/p Zonesamide load of 400mg, now 200mg QHS per Neuro # Decreased bone mineral density - Ca/ Vit D recommended on discharge # Sinus Tach - Baseline, intermittent - Likely partly??due to autonomic instability related to hx of [employer] insults described above?? Diet Regular diet with 2.5L fluid restriction Discharge planning No rehab acceptances as of yet. His current nursing home is unable to find first floor room for him. CM working with [facility] for further options. Lines/Access None Morse catheter None DVT Prophylaxis Enoxaparin Code status FULL Team Pager [phone] PCP NAKIA Cifuentes Attestation IPI Certification I certify that I am a [facility] credentialed attending provider with admitting privileges and that the patient meets or has met medical necessity to require an inpatient IPI level of care meeting a minimumof two midnights or is on the [facility] inpatient only procedure list (status C) due to: the patient has met Inpatient IPI criteria and is awaiting rehabilitation or half-way facility placement withactive referrals in process REBA LINTON MD * Reba Linton MD - 10/04/2017 3:44 PM EDT Hospital Medicine Daily Progress Note Admit Date: 09/02/2017 Hospital Day 32 days Active Hospital Problems Diagnosis ??? S/P ORIF left acetabulum fracture 09/04/2017 Dr. Lance ??? Postoperative anemia due to acute blood loss ??? Diabetes insipidus ??? Adrenal insufficiency ??? Panhypopituitarism ??? Seizure disorder ??? Hypothyroidism Resolved Hospital Problems Diagnosis Date Resolved No resolved problems to display. [facility] Active Non-Hospital Problems Diagnosis ??? Insomnia ??? Blind ??? CVA (cerebral vascular accident) ??? Urinary incontinence Inpatient Medications: Scheduled ??? desmopressin 0.05 mg Oral 3 times per day ??? methyl salicylate-menthol Topical (Top) BID ??? calcium carbonate 500 mg Oral BID ??? cholecalciferol (Vitamin D3) 1,000 Units Oral Daily ??? hydrocortisone 20 mg Oral QAM ??? hydrocortisone 10 mg Oral Daily at Noon ??? hydrocortisone 10 mg Oral Q24H ??? enoxaparin 40 mg Subcutaneous Nightly ??? levothyroxine 150 mcg Oral QAM ??? melatonin 3 mg Oral Nightly ??? pantoprazole 40 mg Oral QAM AC ??? QUEtiapine 250 mg Oral Nightly ??? traZODone 50 mg Oral Nightly ??? zonisamide 200 mg Oral Nightly Continuous infusions: PRN: bisacodyl, LORazepam, HYDROmorphone, haloperidol, polyethylene glycol (MIRALAX)oral powder, senna-docusate, lidocaine, naphazoline-pheniramine ID: 27 y/o man with pmhx history of??resection of pituitary tumor, intraoperative hemorrhage and??CVA, cognitive impairment, cortical blindness, partial L sided paralysis, seizure disorder, and panhypopituitarism (with DI, adrenal insufficiency, hypothyroidism, hypogonadism) here with a left acetabular fracture that occurred in the setting of a possible seizure. Interval History: No acute events. Total PO intake 1.3L. Review of Systems: Unable to obtain full review of systems due to patient's mental status Physical Exam Vitals Range last 24 hrs Temperature Temp: -- Heart Rate Heart Rate: -- Blood Pressure BP: -- Respiratory Rate Resp: -- SpO2 SpO2: -- Intake/Output Summary (Last 24 hours) at 10/04/17 1544 Last data filed at 10/04/17 1129 Gross per 24 hour Intake 1265 ml Output 0 ml Net 1265 ml No data found. Gen: NAD, sleeping comfortably CV: Normal rate, regular rhythm, no murmurs/rubs/gallops auscultated Pulm: No respiratory distress, CTA bilaterally Abd: Non-distended, lower abd incision healing well with some minimal surrounding erythema, no tenderness to palpation Ext: No pedal edema, 2+ radial/DP pulses Skin: Warm, dry, no rashes LABS: Last 3 wbc, hgb, hct plt Recent Labs 09/19/17 0321 09/18/17 0546 09/17/17 0628 WBC 7.4 6.6 6.8 HGB 9.1* 8.2* 8.1* HCT 31.4* 26.2* 26.0* PLATELET 648* 580* 497* Last 3 Lytes Recent Labs 10/04/17 1248 10/04/17 0501 10/03/17 1948 NA 147* 146* 148* K 3.8 3.8 4.3 CL 103 103 104 CO2 29 26 29 BUN 20 20 21* CREATININE 0.97 1.11 1.03 IMAGING: Pelvis Xray 09/23: Prior fixation of the left pelvic fracture. No change in appearance. Assessment: 27 y/o man with pmhx history of??resection of pituitary tumor, intraoperative hemorrhage and??CVA, cognitive impairment, cortical blindness, partial L sided paralysis, seizure disorder, and panhypopituitarism (with DI, adrenal insufficiency, hypothyroidism, hypogonadism) here with a left acetabular fracture that occurred in the setting of a possible seizure. ?? He is now s/p operative repair on 09/04 with post operative course c/b issues with sodium and fluid homeostasis which has stabilized with re-initiation of his home regimen of DDAVP. There are intermittent fluctuations that are primarily in the setting of his variable fluid intake. He must be encouraged to drink to his new 2.5 L fluid restriction given his thirst drive is impaired. Nursing and bedside facility staff are being reminded of this. ?? Plan: # Panhypopituitarism # Acute Hyponatremia (resolved) - DI: Remains hypernatremic today given poor PO intake yesterday. Continue Q8H sodium checks. Continue TID DDAVP at this time with dosing timed. Endocrinology following to assist with DDAVP dosing. Continue fluid restriction 2.5L. PATIENT NEEDS TO BE PROMPTED TO DRINK. - Adrenal insufficiency - Continue home hydrocortisone (20mg at 0700, 10mg at 1200 and 1900) - Hypothyroidism - TFT's at goal - continue levothyroxine 150 mcg - Hypogonadism - will continue androgel supplementation outpatient - Appreciate Endocrine input on all of the above ?? # Acetabular fracture - S/p operative repair 09/04 - Continue pain control with scheduled tylenol and prn po dilaudid - Continue DVT ppx with lovenox - PT/OT: NWB LLE, OK for stand pivot transfer from wheelchair per Ortho - Repeat pelvis xray on 10/09 to assess for healing and determine weight bearing status ? # Anemia, suspected due to iatrogenic cause - Responded appropriately to 1U PRBC on 09/16 - Will continue to monitor for changes in symptoms - Minimizing blood draws otherwise where able ?? # Seizure d/o with breakthrough seizure after no seizures for 4 years: Stable. - S/p Zonesamide load of 400mg, now 200mg QHS per Neuro # Decreased bone mineral density - Ca/ Vit D recommended on discharge # Sinus Tach - Baseline, intermittent - Likely partly??due to autonomic instability related to hx of [employer] insults described above?? Diet Regular diet with 2.5L fluid restriction Discharge planning No rehab acceptances as of yet. His current nursing home is unable to find first floor room for him. CM working with [facility] for further options. Lines/Access None Morse catheter None DVT Prophylaxis Enoxaparin Code status FULL Team Pager [phone] PCP NAKIA Cifuentes Attestation IPI Certification I certify that I am a D-H credentialed attending provider with admitting privileges and that the patient meets or has met medical necessity to require an inpatient IPI level of care meeting a minimumof two midnights or is on the [facility] inpatient only procedure list (status C) due to: the patient has met Inpatient IPI criteria and is awaiting rehabilitation or half-way facility placement withactive referrals in process REBA LINTON MD * Reba Linton MD - 10/03/2017 1:56 PM EDT Hospital Medicine Daily Progress Note Admit Date: 09/02/2017 Hospital Day 31 days Active Hospital Problems Diagnosis ??? S/P ORIF left acetabulum fracture 09/04/2017 Dr. Lance ??? Postoperative anemia due to acute blood loss ??? Diabetes insipidus ??? Adrenal insufficiency ??? Panhypopituitarism ??? Seizure disorder ??? Hypothyroidism Resolved Hospital Problems Diagnosis Date Resolved No resolved problems to display. PMH Active Non-Hospital Problems Diagnosis ??? Insomnia ??? Blind ??? CVA (cerebral vascular accident) ??? Urinary incontinence Inpatient Medications: Scheduled ??? desmopressin 0.05 mg Oral 3 times per day ??? methyl salicylate-menthol Topical (Top) BID ??? calcium carbonate 500 mg Oral BID ??? cholecalciferol (Vitamin D3) 1,000 Units Oral Daily ??? hydrocortisone 20 mg Oral QAM ??? hydrocortisone 10 mg Oral Daily at Noon ??? hydrocortisone 10 mg Oral Q24H ??? enoxaparin 40 mg Subcutaneous Nightly ??? levothyroxine 150 mcg Oral QAM ??? melatonin 3 mg Oral Nightly ??? pantoprazole 40 mg Oral QAM AC ??? QUEtiapine 250 mg Oral Nightly ??? traZODone 50 mg Oral Nightly ??? zonisamide 200 mg Oral Nightly Continuous infusions: PRN: bisacodyl, LORazepam, HYDROmorphone, haloperidol, polyethylene glycol (MIRALAX)oral powder, senna-docusate, lidocaine, naphazoline-pheniramine ID: 27 y/o man with pmhx history of??resection of pituitary tumor, intraoperative hemorrhage and??CVA, cognitive impairment, cortical blindness, partial L sided paralysis, seizure disorder, and panhypopituitarism (with DI, adrenal insufficiency, hypothyroidism, hypogonadism) here with a left acetabular fracture that occurred in the setting of a possible seizure. Interval History: - Some agitation for which haldol was tried with minimal effect - Otherwise no acute events overnight - Total PO intake of 1.6 L yesterday Review of Systems: Unable to obtain full review of systems due to patient's mental status Physical Exam Vitals Range last 24 hrs Temperature Temp: [36.6 ??C (97.9 ??F)] Heart Rate Heart Rate: -- Blood Pressure BP: (129-133)/(80-82) Respiratory Rate Resp: [16] SpO2 SpO2: [97 %-98 %] Intake/Output Summary (Last 24 hours) at 10/03/17 1356 Last data filed at 10/03/17 1047 Gross per 24 hour Intake 1540 ml Output 550 ml Net 990 ml No data found. Gen: NAD, appears calm today CV: Normal rate, regular rhythm, no murmurs/rubs/gallops auscultated Pulm: No respiratory distress Abd: Non-distended, lower abd incision healing well with some minimal surrounding erythema, no tenderness to palpation Ext: No pedal edema, 2+ radial/DP pulses Skin: Warm, dry, no rashes LABS: Last 3 wbc, hgb, hct plt Recent Labs 09/19/17 0321 09/18/17 0546 09/17/17 0628 WBC 7.4 6.6 6.8 HGB 9.1* 8.2* 8.1* HCT 31.4* 26.2* 26.0* PLATELET 648* 580* 497* Last 3 Lytes Recent Labs 10/03/17 1136 10/03/17 0415 10/02/17 1912 NA 146* 146* 146* K 3.7 3.9 4.0 CL 102 106 105 CO2 28 26 24 BUN 15 15 15 CREATININE 1.04 0.86 0.95 IMAGING: Pelvis Xray 09/23: Prior fixation of the left pelvic fracture. No change in appearance. Assessment: 27 y/o man with pmhx history of??resection of pituitary tumor, intraoperative hemorrhage and??CVA, cognitive impairment, cortical blindness, partial L sided paralysis, seizure disorder, and panhypopituitarism (with DI, adrenal insufficiency, hypothyroidism, hypogonadism) here with a left acetabular fracture that occurred in the setting of a possible seizure. ?? He is now s/p operative repair on 09/04 with post operative course c/b issues with sodium and fluid homeostasis which has stabilized with re-initiation of his home regimen of DDAVP. His hemoglobin has stabilized with decreased lab draws and it is likely the source of his anemia was iatrogenic. His sodium continues to fluctuate with his fluid intake. Will continue to encourage him to drink to his new 2.5 L fluid restriction as his thirst drive is impaired. ?? Plan: # Panhypopituitarism # Acute Hyponatremia (resolved) - DI: Sodium continues to fluctuate. Slightly hypernatremic today given poor PO intake. Continue Q8H sodium checks. Continue TID DDAVP at this time with dosing timed. Endocrinology following to assist with DDAVP dosing. Continue fluid restriction 2.5L. PATIENT NEEDS TO BE PROMPTED TO DRINK. - Adrenal insufficiency - Continue home hydrocortisone (20mg at 0700, 10mg at 1200 and 1900) - Hypothyroidism - TFT's at goal - continue levothyroxine 150 mcg - Hypogonadism - will continue androgel supplementation outpatient - Appreciate Endocrine input on all of the above ?? # Acetabular fracture - S/p operative repair 09/04 - Continue pain control with scheduled tylenol and prn po dilaudid - Continue DVT ppx with lovenox - PT/OT: NWB LLE, OK for stand pivot transfer from wheelchair per Ortho - Repeat pelvis xray on 10/09 to assess for healing and determine weight bearing status ? # Anemia, suspected due to iatrogenic cause - Responded appropriately to 1U PRBC on 09/16 - Will continue to monitor for changes in symptoms - Minimizing blood draws otherwise where able ?? # Seizure d/o with breakthrough seizure after no seizures for 4 years: Stable. - S/p Zonesamide load of 400mg, now 200mg QHS per Neuro # Decreased bone mineral density - Ca/ Vit D recommended on discharge # Sinus Tach - Baseline, intermittent - Likely partly??due to autonomic instability related to hx of [employer] insults described above?? Diet Regular diet with 2.5L fluid restriction Discharge planning No rehab acceptances as of yet. His current nursing home is unable to find first floor room for him. CM working with [facility] for further options. Lines/Access None Morse catheter None DVT Prophylaxis Enoxaparin Code status FULL Team Pager [phone] PCP NAKIA Cifuentes Attestation IPI Certification I certify that I am a D-H credentialed attending provider with admitting privileges and that the patient meets or has met medical necessity to require an inpatient IPI level of care meeting a minimumof two midnights or is on the [facility] inpatient only procedure list (status C) due to: the patient has met Inpatient IPI criteria and is awaiting rehabilitation or half-way facility placement withactive referrals in process REBA LINTON MD * Tez Tate, SENIOR PROFESSIONAL SERVICES CONSULTANT - 10/03/2017 10:52 AM EDT Based on discussions with the multi-disciplinary healthcare team, the patient would benefit from skilled level of care at discharge. ?? I have met with the patient/insurance sales representative to discuss discharge planning needs. I have provided the [facility], Office of Care Management letter from the [employer] pertaining to rehab referrals. I have also provided a letter describing our affiliations within the [facility] and educated them about their right to choose where referrals are placed. ?? I reviewed the different levels of rehab including SNF, swing, acute and LTAC with the patient/insurance sales representative. ?? The patient/insurance sales representative has been provided a list of facilities within their preferred geographic area. ?? I have requested that the patient/insurance sales representative provide at least three choices for referral. ?? The patient/insurance sales representative have requested referrals to: ?? 1. [facility] are willing to send in additional care for assistance, please inform the facility of this. ?? Expected date of discharge: 10/03/2017 Note routed to Audit Director who will communicate referrals to facilities and provide any required information. * Tez Tate MSW - 10/03/2017 10:30 AM EDT Sw reviewed the pt chart. The pt is medically ready for D/C but SW is having a hard time with placement. The SW reached out to Noel Estrella [phone]: [facility] Dept of Aging and [place], Developmental Services Specialist and Lc Martinez [phone]: Director [facility],as well as Subha Tejeda [phone] is the RN of [facility] who oversees the nursing home. Miguel Angel states that she is the nurse for the home where the pt is and when she spoke with cL, he says that the pt does need to D/C from the hospital and he was trying to work on a plan. The SW also spoke with Noel from [facility] who states that she is willing to authorize additional services in any facility the pt transfers to, to try and accommodate that staff at the facility. The SW was unable to talk to Lc but did leave a voice mail for a return call. The [facility] is aware of the pt being in the hospital and the placement issues. Noel states she will be talking to Lc today to try and come up with a different plan. SW to continue working with the pt on D/C planning. * Reba Linton MD - 10/02/2017 4:44 PM EDT Hospital Medicine Daily Progress Note Admit Date: 09/02/2017 Hospital Day 30 days Active Hospital Problems Diagnosis ??? S/P ORIF left acetabulum fracture 09/04/2017 Dr. Lance ??? Postoperative anemia due to acute blood loss ??? Diabetes insipidus ??? Adrenal insufficiency ??? Panhypopituitarism ??? Seizure disorder ??? Hypothyroidism Resolved Hospital Problems Diagnosis Date Resolved No resolved problems to display. PMH Active Non-Hospital Problems Diagnosis ??? Insomnia ??? Blind ??? CVA (cerebral vascular accident) ??? Urinary incontinence Inpatient Medications: Scheduled ??? desmopressin 0.05 mg Oral 3 times per day ??? methyl salicylate-menthol Topical (Top) BID ??? calcium carbonate 500 mg Oral BID ??? cholecalciferol (Vitamin D3) 1,000 Units Oral Daily ??? hydrocortisone 20 mg Oral QAM ??? hydrocortisone 10 mg Oral Daily at Noon ??? hydrocortisone 10 mg Oral Q24H ??? enoxaparin 40 mg Subcutaneous Nightly ??? levothyroxine 150 mcg Oral QAM ??? melatonin 3 mg Oral Nightly ??? pantoprazole 40 mg Oral QAM AC ??? QUEtiapine 250 mg Oral Nightly ??? traZODone 50 mg Oral Nightly ??? zonisamide 200 mg Oral Nightly Continuous infusions: PRN: bisacodyl, LORazepam, HYDROmorphone, haloperidol, polyethylene glycol (MIRALAX)oral powder, senna-docusate, lidocaine, naphazoline-pheniramine ID: 27 y/o man with pmhx history of??resection of pituitary tumor, intraoperative hemorrhage and??CVA, cognitive impairment, cortical blindness, partial L sided paralysis, seizure disorder, and panhypopituitarism (with DI, adrenal insufficiency, hypothyroidism, hypogonadism) here with a left acetabular fracture that occurred in the setting of a possible seizure. Interval History: - No acute events overnight - Total PO intake of 2.2L yesterday Review of Systems: Unable to obtain full review of systems due to patient's mental status Physical Exam Vitals Range last 24 hrs Temperature Temp: [35.6 ??C (96.1 ??F)-36.6 ??C (97.9 ??F)] Heart Rate Heart Rate: [116-129] Blood Pressure BP: (144-158)/(96-102) Respiratory Rate Resp: [18] SpO2 SpO2: [96 %-100 %] Intake/Output Summary (Last 24 hours) at 10/02/17 1644 Last data filed at 10/02/17 1307 Gross per 24 hour Intake 1820 ml Output 250 ml Net 1570 ml No data found. Gen: NAD, awake and yelling out but easily calmed down today CV: Normal rate, regular rhythm, no murmurs/rubs/gallops auscultated Pulm: No respiratory distress Abd: Non-distended, lower abd incision healing well with some minimal surrounding erythema, no tenderness to palpation Ext: No pedal edema, 2+ radial/DP pulses Skin: Warm, dry, no rashes LABS: Last 3 wbc, hgb, hct plt Recent Labs 09/19/17 0321 09/18/17 0546 09/17/17 0628 WBC 7.4 6.6 6.8 HGB 9.1* 8.2* 8.1* HCT 31.4* 26.2* 26.0* PLATELET 648* 580* 497* Last 3 Lytes Recent Labs 10/02/17 1214 10/02/17 0545 10/01/172 NA 146* 143 139 K 4.3 4.0 4.3 CL 105 103 100 CO2 25 26 26 BUN 13 15 14 CREATININE 0.84 0.85 0.95 IMAGING: Pelvis Xray 09/23: Prior fixation of the left pelvic fracture. No change in appearance. Assessment: 27 y/o man with pmhx history of??resection of pituitary tumor, intraoperative hemorrhage and??CVA, cognitive impairment, cortical blindness, partial L sided paralysis, seizure disorder, and panhypopituitarism (with DI, adrenal insufficiency, hypothyroidism, hypogonadism) here with a left acetabular fracture that occurred in the setting of a possible seizure. ?? He is now s/p operative repair on 09/04 with post operative course c/b issues with sodium and fluid homeostasis which has stabilized with re-initiation of his home regimen of DDAVP. His hemoglobin has stabilized with decreased lab draws and it is likely the source of his anemia was iatrogenic. His sodium continues to fluctuate with his fluid intake. Will continue to encourage him to drink to his new 2.5 L fluid restriction as his thirst drive is impaired. ?? Plan: # Panhypopituitarism # Acute Hyponatremia (resolved) - DI: Sodium continues to fluctuate. Slightly hypernatremic today because DDAVP was given late. Continue Q8H sodium checks. Continue TID DDAVP at this time with dosing timed. Endocrinology following to assist with DDAVP dosing. Continue fluid restriction 2.5L. - Adrenal insufficiency - Continue home hydrocortisone (20mg at 0700, 10mg at 1200 and 1900) - Hypothyroidism - TFT's at goal - continue levothyroxine 150 mcg - Hypogonadism - will continue androgel supplementation outpatient - Appreciate Endocrine input on all of the above ?? # Acetabular fracture - S/p operative repair 09/04 - Continue pain control with scheduled tylenol and prn po dilaudid - Continue DVT ppx with lovenox - PT/OT: NWB LLE, OK for stand pivot transfer from wheelchair per Ortho - Repeat pelvis xray on 10/09 to assess for healing and determine weight bearing status ? # Anemia, suspected due to iatrogenic cause - Responded appropriately to 1U PRBC on 09/16 - Will continue to monitor for changes in symptoms - Minimizing blood draws otherwise where able ?? # Seizure d/o with breakthrough seizure after no seizures for 4 years: Stable. - S/p Zonesamide load of 400mg, now 200mg QHS per Neuro # Decreased bone mineral density - Ca/ Vit D recommended on discharge # Sinus Tach - Baseline, intermittent - Likely partly??due to autonomic instability related to hx of [employer] insults described above?? Diet Regular diet Discharge planning No rehab acceptances as of yet. His current nursing home is unable to find first floor room for him. CM working with [facility] for further options. Lines/Access None Morse catheter None DVT Prophylaxis Enoxaparin Code status FULL Team Pager [phone] PCP NAKIA Cifuentes Attestation IPI Certification I certify that I am a D-H credentialed attending provider with admitting privileges and that the patient meets or has met medical necessity to require an inpatient IPI level of care meeting a minimumof two midnights or is on the [facility] inpatient only procedure list (status C) due to: the patient has met Inpatient IPI criteria and is awaiting rehabilitation or half-way facility placement withactive referrals in process REBA LINTON MD * Louis Doran PTA - 10/02/2017 3:30 PM EDT Physical Therapy Note Assisted nursing to transfer pt from bed to wheelchair with stand pivot transfer, caregiver presentand wheeled pt off the floor for a ride. Pt had been screaming throughout the day per RN report. Briefly discussed with staff performing stand pivot transfer with 2 assist to wheelchair to provide ptwith off the floor activities with caregiver. Recommend 2 assist transfers with FWW or hand hold assist Minimize transfer distance and transfer towards pt's right side Provide cues throughout transfer, talk over pt, if pt is screaming, he will listen/respond Provide verbal cues before attempting to touch/move pt and allow pt to perform as much as of the transfer as he can Pt may sit early, guide him to the chair Pager: [phone] LOUIS DORAN PTA Physical Therapy Rehabilitation Department * Guerrero Bah MD - 10/01/2017 3:28 PM EDT Images from the original note were not included. 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 New events since last time seen: Na was trended and down trended to 130 today at 03:41. Per the admin instructions, only give if Na >135, the morning dose of DDAVP was held this morning. Per thenurse this morning patient with urine output in the diaper. Na up trended to 137 at noon therefore we asked them to give the DDAVP. Oral intake until 7 am this morning was 1.5 L and from 7 am till now 1.080. Spoke with caregiver at the bedside and he is making sure that everything he drinks is being reported to RN's. No past medical history on file. Past Surgical History: Procedure Laterality Date ??? PRO OPEN CROSSCUTTER ROLLED GLASS FIX ACETABULAR FX Left 09/04/2017 @OPEN TREATMENT, ACETABULAR FX (WRVU 25.41) performed by Amy Lance MD at [facility] MAIN OR No family history on file. Current Medications: Scheduled Meds: ??? desmopressin 0.05 mg Oral 3 times per day ??? methyl salicylate-menthol Topical (Top) BID ??? calcium carbonate 500 mg Oral BID ??? cholecalciferol (Vitamin D3) 1,000 Units Oral Daily ??? hydrocortisone 20 mg Oral QAM ??? hydrocortisone 10 mg Oral Daily at Noon ??? hydrocortisone 10 mg Oral Q24H ??? enoxaparin 40 mg Subcutaneous Nightly ??? levothyroxine 150 mcg Oral QAM ??? melatonin 3 mg Oral Nightly ??? pantoprazole 40 mg Oral QAM AC ??? QUEtiapine 250 mg Oral Nightly ??? traZODone 50 mg Oral Nightly ??? zonisamide 200 mg Oral Nightly Continuous Infusions: PRN Meds:.bisacodyl, LORazepam, HYDROmorphone, haloperidol, polyethylene glycol (MIRALAX)oral powder, senna-docusate, lidocaine, naphazoline-pheniramine Allergies Allergen Reactions ??? Lopid [Gemfibrozil] Physical Exam: BP 125/81 (BP Location (NBP): Right arm, Patient Position: Lying) Pulse 70 Temp 35.6 ??C (96.1 ??F) (Axillary) Resp 16 Ht 177.8 cm (5' 10) Wt 86.6 kg (191 lb) Comment: weight taken postoperatively using bed scale from unit SpO2 98% Patient was not examined but seems comfortable Labs: Ref. 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 We have been following for DI. Although the Na had down trended (we think from over replacement DDAVP). It up trended from 130 to 137 at noon today. That probably happened after the morning dose of DDAVP was held (per admin instructions only give if sodium >135). Once it normalized we asked theRN to give noon dose. Yesterday night we had tightened the fluid restriction to 2.5 L (from 3 L) because the Na had kept down trending. We recommend following Na every 8 hours, continuing DDAVP TID, and 2.5 L fluid restriction. Be aware Na could up-trend a little bit more because the DDAVP was held (noon dose was given until 5 pm). Thank you for allowing us participate in the care of this patient. Patient was discussed with Dr. Page. Guerrero Tillman MD Endocrinology, Diabetes and Metabolism Fellow Pager #[phone] 10/01/2017 Associated attestation - Genevieve Page MD - 10/01/2017 6:59 PM EDT I discussed this patient with Dr. Niles Tillman. I reviewed the santos portions of the history and physical exam, and reviewed pertinent lab data. I was involved in all medical decision making and agree with this plan. GENEVIEVE PAGE MD Engagement Engineerintensive care specialist Section of Endocrinology [facility] * Kurt Blanco - 10/01/2017 3:23 PM EDT Nutrition Services - Follow-up Note Miguel Angel Mason : 1990 AGE: 27 y.o. Patient Active Problem List Diagnosis Date Noted ??? *Hospital-S/P ORIF left acetabulum fracture 09/04/2017 Dr. Lance 09/02/2017 ??? Hospital-Postoperative anemia due to acute blood loss 09/04/2017 ??? Hospital-Diabetes insipidus 09/03/2017 ??? Hospital-Adrenal insufficiency 09/03/2017 ??? 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 Hospital-Seizure disorder 09/03/2017 ??? Insomnia 09/03/2017 ??? Blind 09/03/2017 ??? CVA (cerebral vascular accident) 09/03/2017 ??? Urinary incontinence 09/03/2017 ??? Hospital-Hypothyroidism 09/03/2017 Reason for Nutrition Intervention: Follow-up Diet Order: Regular Appetite: Good-per Caregiver Food allergies: NKFA Chewing/Swallowing difficulty: none noted. Ht Readings from Last 3 Encounters: 09/07/17 177.8 cm (5' 10) Wt Readings from Last 3 Encounters: 09/04/17 86.6 kg (191 lb) There is no height or weight on file to calculate BMI. Assessment: Patient seen for scheduled nutrition follow up. Pt's caregiver reported a good appetitewithout difficulty chewing or swallowing. Pt had 50% of his breakfast and 100% of his lunch. He is tolerating his current diet without nausea or vomiting. Pt's caregiver declined need for assistance with open containers and cut up foods at this time stating someone will always be available to assist with meals. Added evening snack--mixed fruit salad. Nursing/ visitor/ family calling in meal choices daily. Pt's caregiver had no further questions at this time. Encouraged caregiver to contact [employer] [employer] services with any questions that may arise. Last noted bowel movement 09/30/17. Nutrition Plan: Suggest adding 3L fluid restriction to current diet order. Added snack. Encourage good po intake. Monitor weight. Support and encouragement provided. Nutrition services to follow weekly thru hospital course unless consulted in the interim. ADAM Kathleen Pager # [phone] * Samson Alvarez - 10/01/2017 3:10 PM EDT Outside Property Agent Encounter Note Patient Name: Miguel Angel Mason : [id number] MR#: [id number] Admit Date: 09/02/2017 9:23 PM Hospital Day 29 days Narrative: Pt was not available for visit. Assessment: Intervention and Outcome: Follow-up: Time in Direct Care Samson Alvarez 10/01/2017 * Reba Linton MD - 10/01/2017 2:52 PM EDT Hospital Medicine Daily Progress Note Admit Date: 09/02/2017 Hospital Day 29 days Active Hospital Problems Diagnosis ??? S/P ORIF left acetabulum fracture 09/04/2017 Dr. Lance ??? Postoperative anemia due to acute blood loss ??? Diabetes insipidus ??? Adrenal insufficiency ??? Panhypopituitarism ??? Seizure disorder ??? Hypothyroidism Resolved Hospital Problems Diagnosis Date Resolved No resolved problems to display. PMH Active Non-Hospital Problems Diagnosis ??? Insomnia ??? Blind ??? CVA (cerebral vascular accident) ??? Urinary incontinence Inpatient Medications: Scheduled ??? desmopressin 0.05 mg Oral 3 times per day ??? methyl salicylate-menthol Topical (Top) BID ??? calcium carbonate 500 mg Oral BID ??? cholecalciferol (Vitamin D3) 1,000 Units Oral Daily ??? hydrocortisone 20 mg Oral QAM ??? hydrocortisone 10 mg Oral Daily at Noon ??? hydrocortisone 10 mg Oral Q24H ??? enoxaparin 40 mg Subcutaneous Nightly ??? levothyroxine 150 mcg Oral QAM ??? melatonin 3 mg Oral Nightly ??? pantoprazole 40 mg Oral QAM AC ??? QUEtiapine 250 mg Oral Nightly ??? traZODone 50 mg Oral Nightly ??? zonisamide 200 mg Oral Nightly Continuous infusions: PRN: bisacodyl, LORazepam, HYDROmorphone, haloperidol, polyethylene glycol (MIRALAX)oral powder, senna-docusate, lidocaine, naphazoline-pheniramine ID: 27 y/o man with pmhx history of??resection of pituitary tumor, intraoperative hemorrhage and??CVA, cognitive impairment, cortical blindness, partial L sided paralysis, seizure disorder, and panhypopituitarism (with DI, adrenal insufficiency, hypothyroidism, hypogonadism) here with a left acetabular fracture that occurred in the setting of a possible seizure. Interval History: - No acute events overnight - Total PO intake of 1.5L yesterday - Calm today Review of Systems: Unable to obtain full review of systems due to patient's mental status Physical Exam Vitals Range last 24 hrs Temperature Temp: [35.6 ??C (96.1 ??F)] Heart Rate Heart Rate: -- Blood Pressure BP: (118-125)/(68-81) Respiratory Rate Resp: [16] SpO2 SpO2: [96 %-98 %] Intake/Output Summary (Last 24 hours) at 10/01/17 1452 Last data filed at 10/01/17 1416 Gross per 24 hour Intake 2070 ml Output 600 ml Net 1470 ml No data found. Gen: NAD, awake and interactive CV: Normal rate, regular rhythm, no murmurs/rubs/gallops auscultated Pulm: No respiratory distress Abd: Non-distended, lower abd incision healing well with some minimal surrounding erythema Ext: No pedal edema, 2+ radial/DP pulses Skin: Warm, dry, no rashes LABS: Last 3 wbc, hgb, hct plt Recent Labs 09/19/17 0321 09/18/17 0546 09/17/17 0628 WBC 7.4 6.6 6.8 HGB 9.1* 8.2* 8.1* HCT 31.4* 26.2* 26.0* PLATELET 648* 580* 497* Last 3 Lytes Recent Labs 10/01/17 1208 10/01/17 0341 09/30/17 2124 NA 137 130* 131* K 4.3 3.8 4.0 CL 97* 93* 91* CO2 27 BUN 12 13 16 CREATININE 0.78* 0.70* 0.80 IMAGING: Pelvis Xray 09/23: Prior fixation of the left pelvic fracture. No change in appearance. Assessment: 27 y/o man with pmhx history of??resection of pituitary tumor, intraoperative hemorrhage and??CVA, cognitive impairment, cortical blindness, partial L sided paralysis, seizure disorder, and panhypopituitarism (with DI, adrenal insufficiency, hypothyroidism, hypogonadism) here with a left acetabular fracture that occurred in the setting of a possible seizure. ?? He is now s/p operative repair on 09/04 with post operative course c/b issues with sodium and fluid homeostasis which has stabilized with re-initiation of his home regimen of DDAVP. His hemoglobin has stabilized with decreased lab draws and it is likely the source of his anemia was iatrogenic. His sodium continues to fluctuate with his fluid intake. Will continue to encourage him to drink to his new 2.5 L fluid restriction as his thirst drive is impaired. ?? Plan: # Panhypopituitarism # Acute Hyponatremia (resolved) - DI: Sodium improved to 137 without intervention. Continue Q8H sodium checks. Continue TID DDAVP at this time. Endocrinology following to assist with DDAVP dosing. Continue fluid restriction howeverdecrease to 2.5 given hyponatremia yesterday. - Adrenal insufficiency - Continue home hydrocortisone (20mg at 0700, 10mg at 1200 and 1900) - Hypothyroidism - TFT's at goal - continue levothyroxine 150 mcg - Hypogonadism - will continue androgel supplementation outpatient - Appreciate Endocrine input on all of the above ?? # Acetabular fracture - S/p operative repair 09/04 - Continue pain control with scheduled tylenol and prn po dilaudid - Continue DVT ppx with lovenox - PT/OT: NWB LLE, OK for stand pivot transfer from wheelchair per Ortho - Repeat pelvis xray on 10/09 to assess for healing and determine weight bearing status ? # Anemia, suspected due to iatrogenic cause - Responded appropriately to 1U PRBC on 09/16 - Will continue to monitor for changes in symptoms - Minimizing blood draws otherwise where able ?? # Seizure d/o with breakthrough seizure after no seizures for 4 years: Stable. - S/p Zonesamide load of 400mg, now 200mg QHS per Neuro # Decreased bone mineral density - Ca/ Vit D recommended on discharge # Sinus Tach - Baseline, intermittent - Likely partly??due to autonomic instability related to hx of [employer] insults described above?? Diet Regular diet Discharge planning No rehab acceptances as of yet. His current nursing home is unable to find first floor room for him. LUCSA working with [facility] for further options. Lines/Access None Morse catheter None DVT Prophylaxis Enoxaparin Code status FULL Team Pager [phone] PCP NAKIA Cifuentes Attestation IPI Certification I certify that I am a D-H credentialed attending provider with admitting privileges and that the patient meets or has met medical necessity to require an inpatient IPI level of care meeting a minimumof two midnights or is on the [facility] inpatient only procedure list (status C) due to: the patient has met Inpatient IPI criteria and is awaiting rehabilitation or half-way facility placement withactive referrals in process REBA LINTON MD * Guerrero Bah MD - 09/30/2017 10:42 PM EDT Brief Progress note- Endocrinology We have been following Mr Isabella Mcguire as below: Ref. Range 09/29/2017 10:51 09/29/2017 18:36 09/30/2017 06:09 09/30/2017 12:42 09/30/2017 21:24 Sodium Latest Ref Range: 135 - 145 mmol/L 140 136 133 (L) 133 (L) 131 (L) Na has down trended from 140 yesterday at 10:51 am to 131 at 21:24 today (+/-36 hours). From reviewing the intake/output- PO intake 1,510 mL so far (well below 3,000 mL daily fluid restriction) and charted urine output 300 mL (although probably inacurate). Differential diagnosis include SIADH (from over replacement from DDAVP), polydipsia (although if charted adequately, so far 1,510 mL intake), low solute intake. Other considerations are hypothyroidism (last time FT4 was checked 1.01). We will tighten fluid restriction to 2.5 L (from 3L) and continue to follow Na every 8 hours. Patient was discussed with Dr. Page. Addendum: 11 pm Spoke with the nurse and they are aware of the plan. They confirmed they have documented all intake. Associated attestation - Genevieve Page MD - 10/01/2017 1:46 PM EDT I discussed this patient with Dr. Niles Tillman. I reviewed the santos portions of the history and physical exam, and reviewed pertinent lab data. I was involved in all medical decision making and agree with this plan. GENEVIEVE PAGE MD Engagement Engineerintensive care specialist Section of Endocrinology [facility] [place] * Reba Linton MD - 09/30/2017 5:58 PM EDT Hospital Medicine Daily Progress Note Admit Date: 09/02/2017 Hospital Day 28 days Active Hospital Problems Diagnosis ??? S/P ORIF left acetabulum fracture 09/04/2017 Dr. Lance ??? Postoperative anemia due to acute blood loss ??? Diabetes insipidus ??? Adrenal insufficiency ??? Panhypopituitarism ??? Seizure disorder ??? Hypothyroidism Resolved Hospital Problems Diagnosis Date Resolved No resolved problems to display. PMH Active Non-Hospital Problems Diagnosis ??? Insomnia ??? Blind ??? CVA (cerebral vascular accident) ??? Urinary incontinence Inpatient Medications: Scheduled ??? desmopressin 0.05 mg Oral 3 times per day ??? methyl salicylate-menthol Topical (Top) BID ??? calcium carbonate 500 mg Oral BID ??? cholecalciferol (Vitamin D3) 1,000 Units Oral Daily ??? hydrocortisone 20 mg Oral QAM ??? hydrocortisone 10 mg Oral Daily at Noon ??? hydrocortisone 10 mg Oral Q24H ??? enoxaparin 40 mg Subcutaneous Nightly ??? levothyroxine 150 mcg Oral QAM ??? melatonin 3 mg Oral Nightly ??? pantoprazole 40 mg Oral QAM AC ??? QUEtiapine 250 mg Oral Nightly ??? traZODone 50 mg Oral Nightly ??? zonisamide 200 mg Oral Nightly Continuous infusions: PRN: bisacodyl, LORazepam, HYDROmorphone, haloperidol, polyethylene glycol (MIRALAX)oral powder, senna-docusate, lidocaine, naphazoline-pheniramine ID: 27 y/o man with pmhx history of??resection of pituitary tumor, intraoperative hemorrhage and??CVA, cognitive impairment, cortical blindness, partial L sided paralysis, seizure disorder, and panhypopituitarism (with DI, adrenal insufficiency, hypothyroidism, hypogonadism) here with a left acetabular fracture that occurred in the setting of a possible seizure. Interval History: - No acute events overnight - Total PO intake of 1.9L yesterday - Appears calm and agreeable today Review of Systems: Unable to obtain full review of systems due to patient's mental status Physical Exam Vitals Range last 24 hrs Temperature Temp: -- Heart Rate Heart Rate: [70] Blood Pressure BP: (129)/(87) Respiratory Rate Resp: [16] SpO2 SpO2: -- Intake/Output Summary (Last 24 hours) at 09/30/17 1758 Last data filed at 09/30/17 1600 Gross per 24 hour Intake 980 ml Output 200 ml Net 780 ml No data found. Gen: NAD, asleep but easily arousable and interactive when awake CV: Normal rate, regular rhythm, no murmurs/rubs/gallops auscultated Pulm: No respiratory distress Abd: Non-distended, lower abd incision c/d/i with improved erythema Ext: No pedal edema, 2+ radial/DP pulses Skin: Warm, dry, no rashes LABS: Last 3 wbc, hgb, hct plt Recent Labs 09/19/17 0321 09/18/17 0546 09/17/17 0628 WBC 7.4 6.6 6.8 HGB 9.1* 8.2* 8.1* HCT 31.4* 26.2* 26.0* PLATELET 648* 580* 497* Last 3 Lytes Recent Labs 09/30/17 1242 09/30/17 0609 09/29/17 1836 NA 133* 133* 136 K 3.6 3.9 3.9 CL 94* 94* 96* CO2 BUN 18 19 22* CREATININE 0.82 0.78* 0.73* IMAGING: Pelvis Xray 09/23: Prior fixation of the left pelvic fracture. No change in appearance. Assessment: 27 y/o man with pmhx history of??resection of pituitary tumor, intraoperative hemorrhage and??CVA, cognitive impairment, cortical blindness, partial L sided paralysis, seizure disorder, and panhypopituitarism (with DI, adrenal insufficiency, hypothyroidism, hypogonadism) here with a left acetabular fracture that occurred in the setting of a possible seizure. ?? He is now s/p operative repair on 09/04 with post operative course c/b issues with sodium and fluid homeostasis which has stabilized with re-initiation of his home regimen of DDAVP. His hemoglobin has stabilized with decreased lab draws and it is likely the source of his anemia was iatrogenic. His sodium continues to fluctuate with his fluid intake, and patient will need to be prompted to drink up to his 3L restriction as his thirst drive is impaired. ?? Plan: # Panhypopituitarism # Acute Hyponatremia (resolved) - DI: Sodium decreased to 133 today. Continue Q8H sodium checks. May need to change DDAVP dosing however will continue TID at this time. Endocrinology following to assist with DDAVP dosing. Continue 3L fluid restriction with encouragement to drink up to restriction. - Adrenal insufficiency - Continue home hydrocortisone (20mg at 0700, 10mg at 1200 and 1900) - Hypothyroidism - TFT's at goal - continue levothyroxine 150 mcg - Hypogonadism - will continue androgel supplementation outpatient - Appreciate Endocrine input on all of the above ?? # Acetabular fracture - S/p operative repair 09/04 - Continue pain control with scheduled tylenol and prn po dilaudid - Continue DVT ppx with lovenox - PT/OT: NWB LLE, OK for stand pivot transfer from wheelchair per Ortho - Repeat pelvis xray on 10/09 to assess for healing and determine weight bearing status ? # Anemia, suspected due to iatrogenic cause - Responded appropriately to 1U PRBC on 09/16 - Will continue to monitor for changes in symptoms - Minimizing blood draws otherwise where able ?? # Seizure d/o with breakthrough seizure after no seizures for 4 years: Stable. - S/p Zonesamide load of 400mg, now 200mg QHS per Neuro # Decreased bone mineral density - Ca/ Vit D recommended on discharge # Sinus Tach - Baseline, intermittent - Likely partly??due to autonomic instability related to hx of [employer] insults described above?? Diet Regular diet Discharge planning No rehab acceptances as of yet. His current nursing home is unable to find first floor room for him. LUCAS working with [facility] for further options. Lines/Access None Morse catheter None DVT Prophylaxis Enoxaparin Code status FULL Team Pager [phone] PCP NAKIA Cifuentes Attestation IPI Certification I certify that I am a D-H credentialed attending provider with admitting privileges and that the patient meets or has met medical necessity to require an inpatient IPI level of care meeting a minimumof two midnights or is on the [facility] inpatient only procedure list (status C) due to: the patient has met Inpatient IPI criteria and is awaiting rehabilitation or half-way facility placement withactive referrals in process REBA LINTON MD * Guerrero Bah MD - 09/30/2017 3:10 PM EDT Images from the original note were not included. 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 New events since last time seen: since yesterday, the Na has down trended from 140 to 133 in 24 hours. Per documented urine output, he had 200 mL of urine output in 24 hours and an intake of 1.980 L in 24 hours. Spoke with the nurse, the patient does not have a morse catheter and its been difficultto document urine output. Spoke with rn medicare at the bedside and at home the patient is on a 110 oz fluid restriction (3,000 mL). While in the hospital he is fluid restricted to 3,000 mL. No IV fluids given. No past medical history on file. Past Surgical History: Procedure Laterality Date ??? PRO OPEN CROSSCUTTER ROLLED GLASS FIX ACETABULAR FX Left 09/04/2017 @OPEN TREATMENT, ACETABULAR FX (WRVU 25.41) performed by Amy Lance MD at [facility] MAIN OR No family history on file. Current Medications: Scheduled Meds: ??? desmopressin 0.05 mg Oral 3 times per day ??? methyl salicylate-menthol Topical (Top) BID ??? calcium carbonate 500 mg Oral BID ??? cholecalciferol (Vitamin D3) 1,000 Units Oral Daily ??? hydrocortisone 20 mg Oral QAM ??? hydrocortisone 10 mg Oral Daily at Noon ??? hydrocortisone 10 mg Oral Q24H ??? enoxaparin 40 mg Subcutaneous Nightly ??? levothyroxine 150 mcg Oral QAM ??? melatonin 3 mg Oral Nightly ??? pantoprazole 40 mg Oral QAM AC ??? QUEtiapine 250 mg Oral Nightly ??? traZODone 50 mg Oral Nightly ??? zonisamide 200 mg Oral Nightly Continuous Infusions: PRN Meds:.bisacodyl, LORazepam, HYDROmorphone, haloperidol, polyethylene glycol (MIRALAX)oral powder, senna-docusate, lidocaine, naphazoline-pheniramine Allergies Allergen Reactions ??? Lopid [Gemfibrozil] Physical Exam: BP 129/87 (BP Location (NBP): Right arm, Patient Position: Lying) Pulse 70 Temp 36.3 ??C (97.3 ??F) Resp 16 Ht 177.8 cm (5' 10) Wt 86.6 kg (191 lb) Comment: weight taken postoperatively using bed scale from unit SpO2 97% Patient was seen at the bedside, was resting comfortably, no issues. Labs: Ref. Range 09/29/2017 10:51 09/29/2017 18:36 09/30/2017 06:09 09/30/2017 12:42 Sodium Latest Ref Range: 135 - 145 mmol/L 140 136 133 (L) 133 (L) Potassium Latest Ref Range: 3.5 - 5.0 mmol/L 3.7 3.9 3.9 3.6 Chloride Latest Ref Range: 98 - 107 mmol/L 99 96 (L) 94 (L) 94 (L) CO2 Latest Ref Range: 22 - 31 mmol/L 28 26 27 27 Anion Gap Latest Ref Range: 5 - 15 mmol/L 13 14 12 12 BUN Latest Ref Range: 10 - 20 mg/dL 22 (H) 22 (H) 19 18 Creatinine Latest Ref Range: 0.80 - 1.50 mg/dL 0.82 0.73 (L) 0.78 (L) 0.82 Estimated GFR Latest Ref Range: >=60 >60 >60 >60 >60 Glucose Lvl Latest Ref Range: 65 - 199 mg/dL 82 94 85 74 Calcium Latest Ref Range: 8.5 - 10.5 mg/dL 8.8 8.6 8.8 8.6 Assessment and plan: Miguel Angel Mason??is a 27 yea r oldleonora??with PMH significant for 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 Regarding Na abnormality and DI, patient is currently on prior to admission DDAVP 0.05 mg three times per day and fluid restriction (3,000 mL). The Na down trended from 140 (yesterday) down to 133 today. Will recommend continuing trending the Na every 8 hours. If his Na continues to down trend we might consider decreasing the dosing of DDAVP (to two times a day) vs lowering fluid restriction. It has been challenging to measure urine output as he has urinary incontinence. Thank you for allowing us participate in the care of this patient. Patient will be seen and discussed with Dr. Page. Guerrero Tillman MD Endocrinology, Diabetes and Metabolism Fellow Pager #[phone] 09/30/2017 ' Associated attestation - Genevieve Page MD - 09/30/2017 4:49 PM EDT I discussed this patient with Dr. Niles Tillman. I reviewed the santos portions of the history and physical exam, and reviewed pertinent lab data. I was involved in all medical decision making and agree with this plan. GENEVIEVE PAGE MD Engagement Engineerintensive care specialist Section of Endocrinology [facility] * Desean De Oliveira W - 09/30/2017 5:55 AM EDT Orthopaedic Surgery Progress Note Surgery/Issue: ORIF left acetabulum Attending: Dr. Lance Date of surgery: 09/04/2017 Subjective/Events: AMPARO, doing well today, appears comfortable. Per nursing he has been able to get up out of bed with the walker frequently throughout the day. Objcetive: Temp: [36.3 ??C (97.3 ??F)] Heart Rate: [79] Resp: [18-20] BP: (129-159)/(87-110) Intake/Output Summary (Last 24 hours) at 09/30/17 0556 Last data filed at 09/29/17 2241 Gross per 24 hour Intake 1980 ml Output 200 ml Net 1780 ml Lab Results Component Value Date NA 136 09/29/2017 K 3.9 09/29/2017 CL 96 (L) 09/29/2017 CO2 26 09/29/2017 BUN 22 (H) 09/29/2017 CREATININE 0.73 (L) 09/29/2017 GLUCOSE 94 09/29/2017 CALCIUM 8.6 09/29/2017 Lab Results Component Value Date WBC 7.4 09/19/2017 HGB 9.1 (L) 09/19/2017 HCT 31.4 (L) 09/19/2017 MCV 89.2 09/19/2017 PLATELET 648 (H) 09/19/2017 Lab Results Component Value Date INR 1.1 09/03/2017 Exam: General: sleeping comfortably CV: RRR Resp: no increased work of breathing LLE: Anterior pelvic and left lower abdominal incisions c/d/i. No erythema No drainage Abdomen soft, non tender, no ecchymoses Unable to assess motor/sensory Palpable DP/PT A/P: 27 y.o. male s/p ORIF left acetabular fx on 09/04/17. Progressing well post operatively. Furthercare per medicine, plan to work with PT/OT. He has been able to get up OOB and ambulate with walker. Activity: NWB LLE, OK for stand pivot transfer on right leg only DVT prophylaxis: lovenox Closure: carisa are removed Dressings: may leave open to air now Follow up: to be re-tasked at discharge * Reba Linton MD - 09/29/2017 6:23 PM EDT Hospital Medicine Daily Progress Note Admit Date: 09/02/2017 Hospital Day 27 days Active Hospital Problems Diagnosis ??? S/P ORIF left acetabulum fracture 09/04/2017 Dr. Lance ??? Postoperative anemia due to acute blood loss ??? Diabetes insipidus ??? Adrenal insufficiency ??? Panhypopituitarism ??? Seizure disorder ??? Hypothyroidism Resolved Hospital Problems Diagnosis Date Resolved No resolved problems to display. PMH Active Non-Hospital Problems Diagnosis ??? Insomnia ??? Blind ??? CVA (cerebral vascular accident) ??? Urinary incontinence Inpatient Medications: Scheduled ??? desmopressin 0.05 mg Oral 3 times per day ??? methyl salicylate-menthol Topical (Top) BID ??? calcium carbonate 500 mg Oral BID ??? cholecalciferol (Vitamin D3) 1,000 Units Oral Daily ??? hydrocortisone 20 mg Oral QAM ??? hydrocortisone 10 mg Oral Daily at Noon ??? hydrocortisone 10 mg Oral Q24H ??? enoxaparin 40 mg Subcutaneous Nightly ??? levothyroxine 150 mcg Oral QAM ??? melatonin 3 mg Oral Nightly ??? pantoprazole 40 mg Oral QAM AC ??? QUEtiapine 250 mg Oral Nightly ??? traZODone 50 mg Oral Nightly ??? zonisamide 200 mg Oral Nightly Continuous infusions: PRN: bisacodyl, LORazepam, HYDROmorphone, haloperidol, polyethylene glycol (MIRALAX)oral powder, senna-docusate, lidocaine, naphazoline-pheniramine ID: 27 y/o man with pmhx history of??resection of pituitary tumor, intraoperative hemorrhage and??CVA, cognitive impairment, cortical blindness, partial L sided paralysis, seizure disorder, and panhypopituitarism (with DI, adrenal insufficiency, hypothyroidism, hypogonadism) here with a left acetabular fracture that occurred in the setting of a possible seizure. Interval History: - No acute events overnight - Total PO intake of 2.4L yesterday - More alert and interactive today Review of Systems: Unable to obtain full review of systems due to patient's mental status Physical Exam Vitals Range last 24 hrs Temperature Temp: [35.2 ??C (95.4 ??F)-36.3 ??C (97.3 ??F)] Heart Rate Heart Rate: [78-79] Blood Pressure BP: (129-159)/(82-110) Respiratory Rate Resp: [18-20] SpO2 SpO2: [97 %] Intake/Output Summary (Last 24 hours) at 09/29/17 1823 Last data filed at 09/29/17 1752 Gross per 24 hour Intake 2220 ml Output 0 ml Net 2220 ml No data found. Gen: NAD, asleep but easily arousable and interactive when awake CV: Normal rate, regular rhythm, no murmurs/rubs/gallups auscultated Pulm: No respiratory distress Abd: Non-distended, lower abd incision c/d/i with improved erythema Ext: No pedal edema, 2+ radial/DP pulses Skin: Warm, dry, no rashes LABS: Last 3 wbc, hgb, hct plt Recent Labs 09/19/17 0321 09/18/17 0546 09/17/17 0628 WBC 7.4 6.6 6.8 HGB 9.1* 8.2* 8.1* HCT 31.4* 26.2* 26.0* PLATELET 648* 580* 497* Last 3 Lytes Recent Labs 09/29/17 1051 09/29/17 0217 09/28/17 1456 NA 140 140 146* K 3.7 3.5 4.0 CL 99 99 103 CO2 28 29 27 BUN 22* 23* 23* CREATININE 0.82 0.98 0.88 IMAGING: Pelvis Xray 09/23: Prior fixation of the left pelvic fracture. No change in appearance. Assessment: 27 y/o man with pmhx history of??resection of pituitary tumor, intraoperative hemorrhage and??CVA, cognitive impairment, cortical blindness, partial L sided paralysis, seizure disorder, and panhypopituitarism (with DI, adrenal insufficiency, hypothyroidism, hypogonadism) here with a left acetabular fracture that occurred in the setting of a possible seizure. ?? He is now s/p operative repair on 09/04 with post operative course c/b issues with sodium and fluid homeostasis which has stabilized with re-initiation of his home regimen of DDAVP. His hemoglobin has stabilized with decreased lab draws and it is likely the source of his anemia was iatrogenic. His sodium continues to fluctuate with his fluid intake, and patient will need to be prompted to drink up to his 3L restriction as his thirst drive is impaired. ?? Plan: # Panhypopituitarism # Acute Hyponatremia (resolved) - DI: Sodium has stabilized with improved PO intake. Continue 3L fluid restriction with encouragement to drink up to restriction. Continue DDAVP via home schedule (0700, 1200, 1900). - Adrenal insufficiency - Continue home hydrocortisone (20mg at 0700, 10mg at 1200 and 1900) - Hypothyroidism - TFT's at goal - continue levothyroxine 150 mcg - Hypogonadism - will continue androgel supplementation outpatienty - Appreciate Endocrine input on all of the above ?? # Acetabular fracture - S/p operative repair 09/04 - Continue pain control with scheduled tylenol and prn po dilaudid - Continue DVT ppx with lovenox - PT/OT: NWB LLE, OK for stand pivot transfer from wheelchair per Ortho - Repeat pelvis xray on 10/09 to assess for healing and determine weight bearing status ? # Anemia, suspected due to iatrogenic cause - Responded appropriately to 1U PRBC on 09/16 - Will continue to monitor for changes in symptoms - Minimizing blood draws otherwise where able ?? # Seizure d/o with breakthrough seizure after no seizures for 4 years: Stable. - S/p Zonesamide load of 400mg, now 200mg QHS per Neuro # Decreased bone mineral density - Ca/ Vit D recommended on discharge # Sinus Tach - Baseline, intermittent - Likely partly??due to autonomic instability related to hx of [employer] insults described above?? Diet Regular diet Discharge planning No rehab acceptances as of yet. His current nursing home is unable to find first floor room for him. CM working with [facility] for further options. Lines/Access None Morse catheter None DVT Prophylaxis Enoxaparin Code status FULL Team Pager [phone] PCP NAKIA Cifuentes Attestation IPI Certification I certify that I am a D-H credentialed attending provider with admitting privileges and that the patient meets or has met medical necessity to require an inpatient IPI level of care meeting a minimumof two midnights or is on the [facility] inpatient only procedure list (status C) due to: the patient has met Inpatient IPI criteria and is awaiting rehabilitation or half-way facility placement withactive referrals in process REBA LINTON MD * Guerrero Bah MD - 09/29/2017 11:38 AM EDT Images from the original note were not included. 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 New events since last time seen: Per yesterday note, free water deficit about 3 L for Na 148. This morning's Na 140 after was treated by primary team. Patient was seen at the bedside, he was laying comfortably, alert. Patient's rn medicare was at the bedside and according to her, he is at baseline neurologically. No past medical history on file. Past Surgical History: Procedure Laterality Date ??? PRO OPEN CROSSCUTTER ROLLED GLASS FIX ACETABULAR FX Left 09/04/2017 @OPEN TREATMENT, ACETABULAR FX (WRVU 25.41) performed by Amy Lance MD at [facility] MAIN OR No family history on file. Current Medications: Scheduled Meds: ??? desmopressin 0.05 mg Oral 3 times per day ??? methyl salicylate-menthol Topical (Top) BID ??? calcium carbonate 500 mg Oral BID ??? cholecalciferol (Vitamin D3) 1,000 Units Oral Daily ??? hydrocortisone 20 mg Oral QAM ??? hydrocortisone 10 mg Oral Daily at Noon ??? hydrocortisone 10 mg Oral Q24H ??? enoxaparin 40 mg Subcutaneous Nightly ??? levothyroxine 150 mcg Oral QAM ??? melatonin 3 mg Oral Nightly ??? pantoprazole 40 mg Oral QAM AC ??? QUEtiapine 250 mg Oral Nightly ??? traZODone 50 mg Oral Nightly ??? zonisamide 200 mg Oral Nightly Continuous Infusions: PRN Meds:.bisacodyl, LORazepam, HYDROmorphone, haloperidol, polyethylene glycol (MIRALAX)oral powder, senna-docusate, lidocaine, naphazoline-pheniramine Allergies Allergen Reactions ??? Lopid [Gemfibrozil] Physical Exam: BP 129/87 Pulse 78 Temp 35.2 ??C (95.4 ??F) (Axillary) Resp 20 Ht 177.8 cm (5' 10) Wt 86.6 kg (191 lb) Comment: weight taken postoperatively using bed scale from unit SpO2 97% Patient was not examined today Labs: Ref. Range 09/28/2017 06:57 09/28/2017 12:13 09/28/2017 14:56 09/29/2017 02:17 Sodium Latest Ref Range: 135 - 145 mmol/L 148 (H) 148 (H) 146 (H) 140 Ref. Range 09/14/2017 14:09 Free T4 Latest Ref Range: 0.93 - 1.70 ng/dL 1.01 Ref. 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 Regarding Na abnormality and DI, patient is currently on prior to admission DDAVP 0.05 mg three times per day and fluid restriction. Primary team effectively provided free water deficit and sodium this morning has normalized (140) from 148. Would continue Na check every 8-12 hours. Continue following urine output. Regarding hypothyroidism, patient is euthyroid per last result. Continue levothyroxine 150 mcg daily. Regarding adrenal insufficiency, patient is on maintenance hydrocortisone 20 mg/10 mg/10 mg. Regarding hypogonadism to continue prior to admission arnol gel upon discharge. Thank you for allowing us participate in the care of this patient. Patient was discussed with Dr. Page. Guerrero Tillman MD Endocrinology, Diabetes and Metabolism Fellow Pager #[phone] 09/29/2017 Associated attestation - Genevieve Page MD - 09/29/2017 5:38 PM EDT I discussed this patient with Dr. Niles Tillman. I reviewed the santos portions of the history and physical exam, and reviewed pertinent lab data. I was involved in all medical decision making and agree with this plan. GENEVIEVE PAGE MD Engagement Engineerintensive care specialist Section of Endocrinology [facility] [place] * Tez Tate MSW - 09/29/2017 9:51 AM EDT PRANEETH reviewed the pt chart, the pt is still in need of placement. PRANEETH received an email from care management asking to give the pt guardian a call to update. The SW called the pt sister Bettina on her cell phone and work phone. SW left a for a return call. SW to remain available to assist with D/C planning and coordination. * Samson Alvarez - 09/28/2017 3:52 PM EDT Outside Property Agent Encounter Note Patient Name: Miguel Angel Mason : [id number] MR#: [id number] Admit Date: 09/02/2017 9:23 PM Hospital Day 26 days Narrative: Pt was not available for visit. Assessment: Intervention and Outcome: Follow-up: Time in Direct Care: Samson Alvarez 09/28/2017 * Reba Linton MD - 09/28/2017 2:20 PM EDT Hospital Medicine Daily Progress Note Admit Date: 09/02/2017 Hospital Day 26 days Active Hospital Problems Diagnosis ??? S/P ORIF left acetabulum fracture 09/04/2017 Dr. Lance ??? Postoperative anemia due to acute blood loss ??? Diabetes insipidus ??? Adrenal insufficiency ??? Panhypopituitarism ??? Seizure disorder ??? Hypothyroidism Resolved Hospital Problems Diagnosis Date Resolved No resolved problems to display. PM Active Non-Hospital Problems Diagnosis ??? Insomnia ??? Blind ??? CVA (cerebral vascular accident) ??? Urinary incontinence Inpatient Medications: Scheduled ??? desmopressin 0.05 mg Oral 3 times per day ??? methyl salicylate-menthol Topical (Top) BID ??? calcium carbonate 500 mg Oral BID ??? cholecalciferol (Vitamin D3) 1,000 Units Oral Daily ??? hydrocortisone 20 mg Oral QAM ??? hydrocortisone 10 mg Oral Daily at Noon ??? hydrocortisone 10 mg Oral Q24H ??? enoxaparin 40 mg Subcutaneous Nightly ??? levothyroxine 150 mcg Oral QAM ??? melatonin 3 mg Oral Nightly ??? pantoprazole 40 mg Oral QAM AC ??? QUEtiapine 250 mg Oral Nightly ??? traZODone 50 mg Oral Nightly ??? zonisamide 200 mg Oral Nightly Continuous infusions: PRN: bisacodyl, LORazepam, HYDROmorphone, haloperidol, polyethylene glycol (MIRALAX)oral powder, senna-docusate, lidocaine, naphazoline-pheniramine ID: 27 y/o man with pmhx history of??resection of pituitary tumor, intraoperative hemorrhage and??CVA, cognitive impairment, cortical blindness, partial L sided paralysis, seizure disorder, and panhypopituitarism (with DI, adrenal insufficiency, hypothyroidism, hypogonadism) here with a left acetabular fracture that occurred in the setting of a possible seizure. Interval History: - No acute events overnight - Very sleepy this morning - Total PO intake of 720 cc over the past 24 hours Review of Systems: Unable to obtain full review of systems due to patient's mental status Physical Exam Vitals Range last 24 hrs Temperature Temp: [35 ??C (95 ??F)-37.1 ??C (98.8 ??F)] Heart Rate Heart Rate: [78-106] Blood Pressure BP: (122-132)/(77-86) Respiratory Rate Resp: [18-20] SpO2 SpO2: [96 %-97 %] Intake/Output Summary (Last 24 hours) at 09/28/17 1420 Last data filed at 09/28/17 1200 Gross per 24 hour Intake 1155 ml Output 0 ml Net 1155 ml No data found. Gen: NAD, somnolent, arousable but falling asleep quickly, at baseline mentation when awake CV: Normal rate, regular rhythm, no murmurs/rubs/gallups auscultated Pulm: No respiratory distress Abd: Non-distended, lower abd incision c/d/i with improving erythema Ext: No pedal edema, 2+ radial/DP pulses Skin: Warm, dry, no rashes LABS: Last 3 wbc, hgb, hct plt Recent Labs 09/19/17 0321 09/18/17 0546 09/17/17 0628 WBC 7.4 6.6 6.8 HGB 9.1* 8.2* 8.1* HCT 31.4* 26.2* 26.0* PLATELET 648* 580* 497* Last 3 Lytes Recent Labs 09/28/17 1213 09/28/17 0657 09/27/17 0943 NA 148* 148* 147* K 3.9 4.0 3.5 CL 106 107 106 CO2 27 26 22 BUN 22* 21* 17 CREATININE 0.86 0.89 1.00 IMAGING: Pelvis Xray 09/23: Prior fixation of the left pelvic fracture. No change in appearance. Assessment: 27 y/o man with pmhx history of??resection of pituitary tumor, intraoperative hemorrhage and??CVA, cognitive impairment, cortical blindness, partial L sided paralysis, seizure disorder, and panhypopituitarism (with DI, adrenal insufficiency, hypothyroidism, hypogonadism) here with a left acetabular fracture that occurred in the setting of a possible seizure. ?? He is now s/p operative repair on 09/04 with post operative course c/b issues with sodium and fluid homeostasis which has stabilized with re-initiation of his home regimen of DDAVP. His hemoglobin has stabilized with decreased lab draws and it is likely the source of his anemia was iatrogenic. His sodium continues to fluctuate with his fluid intake, and patient will need to be prompted to drink up to his 3L restriction as his thirst drive is impaired. ?? Plan: # Panhypopituitarism # Acute Hyponatremia (resolved) - DI: Sodium is trending up today and patient appears more lethargic. Have asked nursing to ensure he drinks up to his 3L free water restriction. Continue DDAVP via home schedule (0700, 1200, 1900). - Adrenal insufficiency - Continue home hydrocortisone (20mg at 0700, 10mg at 1200 and 1900) - Hypothyroidism - TFT's at goal - continue levothyroxine 150 mcg - Hypogonadism - will continue androgel supplementation outpatienty - Appreciate Endocrine input on all of the above ?? # Acetabular fracture - S/p operative repair 09/04 - Continue pain control with scheduled tylenol and prn po dilaudid - Continue DVT ppx with lovenox - PT/OT: NWB LLE, OK for stand pivot transfer from wheelchair per Ortho - Repeat pelvis xray on 10/09 to assess for healing and determine weight bearing status ? # Anemia, suspected due to iatrogenic cause - Responded appropriately to 1U PRBC on 09/16 - Will continue to monitor for changes in symptoms - Minimizing blood draws otherwise where able ?? # Seizure d/o with breakthrough seizure after no seizures for 4 years: Stable. - S/p Zonesamide load of 400mg, now 200mg QHS per Neuro # Decreased bone mineral density - Ca/ Vit D recommended on discharge # Sinus Tach - Baseline, intermittent - Likely partly??due to autonomic instability related to hx of [employer] insults described above?? Diet Regular diet Discharge planning No rehab acceptances as of yet. His current nursing home is unable to find first floor room for him. CM working with [facility] for further options. Lines/Access None Morse catheter None DVT Prophylaxis Enoxaparin Code status FULL Team Pager [phone] PCP NAKIA Cifuentes Attestation IPI Certification I certify that I am a D-H credentialed attending provider with admitting privileges and that the patient meets or has met medical necessity to require an inpatient IPI level of care meeting a minimumof two midnights or is on the [facility] inpatient only procedure list (status C) due to: the patient has met Inpatient IPI criteria and is awaiting rehabilitation or half-way facility placement withactive referrals in process REBA LINTON MD * Felecia Oneil MD - 09/28/2017 11:12 AM EDT Images from the original note were not included. ENDOCRINOLOGY FOLLOW UP -mother reports patient sleepy today but admits that he did drink some water this morning already. -patient has stripped off his clothes and sheets today. Allergies Allergen Reactions ??? Lopid [Gemfibrozil] ??? desmopressin (DDAVP) tablet 0.05 mg ??? bisacodyl (DULCOLAX) suppository 10 mg ??? LORazepam (ATIVAN) tablet 0.5 mg ??? HYDROmorphone (DILAUDID) tablet 4-6 mg ??? methyl salicylate-menthol (BENGAY) 15-10 % cream ??? haloperidol (HALDOL) 10 mg/5 mL oral solution 2 mg ??? calcium carbonate (TUMS) chewable tablet 500 mg ??? cholecalciferol (Vitamin D3) tablet 1,000 Units ??? hydrocortisone (CORTEF) tablet 20 mg ??? hydrocortisone (CORTEF) tablet 10 mg ??? hydrocortisone (CORTEF) tablet 10 mg ??? enoxaparin (LOVENOX) injection 40 mg ??? polyethylene glycol (MIRALAX) packet 17 g ??? senna-docusate (PERICOLACE) 8.6-50 mg per tablet 2 tablet ??? levothyroxine (SYNTHROID) tablet 150 mcg ??? melatonin tablet 3 mg ??? pantoprazole (PROTONIX) tablet 40 mg ??? QUEtiapine (SEROquel) tablet 250 mg ??? traZODone (DESYREL) tablet 50 mg ??? lidocaine (XYLOCAINE) 10 mg/mL (1 %) injection 3 mg ??? naphazoline-pheniramine (NAPHCON-A) 0.025-0.3 % ophthalmic solution 1 drop ??? 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 09/28/2017 -now with hypernatremia noted over the past 24hrs. ?? Plan: DI -free water deficit calculated at 3L which will need to be given over the next 24hrs for treatment of presumed acute hyponatremia. Primary team already managing. -ct DDAVP 0.05mg TID may need to switch to sc or IV formulation if this dosing no longer appears effective over the next few days. -check Na q8hrly today -I/O charting q4hrly Hypothyroidism ---Continue Levothyroxine 150 mcg daily Adrenal Insufficiency --- Continue Hydrocortisone 20/10/10 mg daily Patient reviewed with Dr Coleman. Team updated with plan as documented above. Felecia Oneil MD PGY-5 Endocrinology Fellow Associated attestation - Neo Coleman DO - 09/28/2017 11:26 AM EDT I have seen the patient and reviewed Dr Oneil' history and I agree with the details as written. Theassessment and plan were formulated in discussion with me and I agree with them as documented. Neo Coleman DO, MS Engagement Engineerintensive care specialist Section of Endocrinology [facility] * Reba Linton MD - 09/27/2017 3:36 PM EDT Hospital Medicine Daily Progress Note Admit Date: 09/02/2017 Hospital Day 25 days Active Hospital Problems Diagnosis ??? S/P ORIF left acetabulum fracture 09/04/2017 Dr. Lance ??? Postoperative anemia due to acute blood loss ??? Diabetes insipidus ??? Adrenal insufficiency ??? Panhypopituitarism ??? Seizure disorder ??? Hypothyroidism Resolved Hospital Problems Diagnosis Date Resolved No resolved problems to display. PMH Active Non-Hospital Problems Diagnosis ??? Insomnia ??? Blind ??? CVA (cerebral vascular accident) ??? Urinary incontinence Inpatient Medications: Scheduled ??? desmopressin 0.05 mg Oral 3 times per day ??? methyl salicylate-menthol Topical (Top) BID ??? calcium carbonate 500 mg Oral BID ??? cholecalciferol (Vitamin D3) 1,000 Units Oral Daily ??? hydrocortisone 20 mg Oral QAM ??? hydrocortisone 10 mg Oral Daily at Noon ??? hydrocortisone 10 mg Oral Q24H ??? enoxaparin 40 mg Subcutaneous Nightly ??? levothyroxine 150 mcg Oral QAM ??? melatonin 3 mg Oral Nightly ??? pantoprazole 40 mg Oral QAM AC ??? QUEtiapine 250 mg Oral Nightly ??? traZODone 50 mg Oral Nightly ??? zonisamide 200 mg Oral Nightly Continuous infusions: PRN: bisacodyl, LORazepam, HYDROmorphone, haloperidol, polyethylene glycol (MIRALAX)oral powder, senna-docusate, lidocaine, naphazoline-pheniramine ID: 27 y/o man with pmhx history of??resection of pituitary tumor, intraoperative hemorrhage and??CVA, cognitive impairment, cortical blindness, partial L sided paralysis, seizure disorder, and panhypopituitarism (with DI, adrenal insufficiency, hypothyroidism, hypogonadism) here with a left acetabular fracture that occurred in the setting of a possible seizure. Interval History: - No acute events overnight - Doing well this AM, sitting up in wheelchair comfortably Review of Systems: Unable to obtain full review of systems due to patient's mental status Physical Exam Vitals Range last 24 hrs Temperature Temp: [36.4 ??C (97.5 ??F)] Heart Rate Heart Rate: -- Blood Pressure BP: (128-131)/(80-91) Respiratory Rate Resp: [14] SpO2 SpO2: -- Intake/Output Summary (Last 24 hours) at 09/27/17 1536 Last data filed at 09/27/17 1149 Gross per 24 hour Intake 480 ml Output 0 ml Net 480 ml No data found. Gen: NAD, sitting up in wheelchair, occasionally moaning CV: Normal rate, regular rhythm, no murmurs/rubs/gallups auscultated Pulm: No respiratory distress Abd: Non-distended, lower abd incision c/d/i with improving erythema Ext: No pedal edema, 2+ radial/DP pulses Skin: Warm, dry, no rashes LABS: Last 3 wbc, hgb, hct plt Recent Labs 09/19/17 0321 09/18/17 0546 09/17/17 0628 WBC 7.4 6.6 6.8 HGB 9.1* 8.2* 8.1* HCT 31.4* 26.2* 26.0* PLATELET 648* 580* 497* Last 3 Lytes Recent Labs 09/27/17 0943 09/25/17 1222 09/24/17 1140 NA 147* 137 137 K 3.5 4.0 4.0 CL 106 98 100 CO2 22 24 26 BUN 17 16 13 CREATININE 1.00 0.68* 0.78* IMAGING: Pelvis Xray 09/23: IMPRESSION Prior fixation of the left pelvic fracture. No change in appearance. Assessment: 27 y/o man with pmhx history of??resection of pituitary tumor, intraoperative hemorrhage and??CVA, cognitive impairment, cortical blindness, partial L sided paralysis, seizure disorder, and panhypopituitarism (with DI, adrenal insufficiency, hypothyroidism, hypogonadism) here with a left acetabular fracture that occurred in the setting of a possible seizure. ?? He is now s/p operative repair on 09/04 with post operative course c/b issues with sodium and fluid homeostasis which has stabilized with re-initiation of his home regimen of DDAVP. His hemoglobin has stabilized with decreased lab draws and it is likely the source of his anemia was iatrogenic. His sodium continues to fluctuate with his fluid intake, and patient will need to be prompted to drink up to his 3L restriction as his thirst drive is impaired. He is medically stable for discharge. ?? Plan: # Panhypopituitarism # Acute Hyponatremia (resolved) - DI: Sodium stable. Continue DDAVP via home schedule (0700, 1200, 1900). Continue 3 L fluid restriction. Encourage drinking up to that 3L restriction. - Adrenal insufficiency - Continue home hydrocortisone (20mg at 0700, 10mg at 1200 and 1900) - Hypothyroidism - TFT's at goal - continue levothyroxine 150 mcg - Hypogonadism - will continue androgel supplementation outpatienty - Appreciate Endocrine input on all of the above ?? # Acetabular fracture - S/p operative repair 09/04 - Continue pain control with scheduled tylenol and prn po dilaudid - Continue DVT ppx with lovenox - PT/OT: NWB LLE, OK for stand pivot transfer from wheelchair per Ortho - Repeat pelvis xray on 10/09 to assess for healing and determine weight bearing status ? # Anemia, suspected due to iatrogenic cause - Responded appropriately to 1U PRBC on 09/16 - Will continue to monitor for changes in symptoms - Minimizing blood draws otherwise where able ?? # Seizure d/o with breakthrough seizure after no seizures for 4 years: Stable. - S/p Zonesamide load of 400mg, now 200mg QHS per Neuro # Decreased bone mineral density - Ca/ Vit D recommended on discharge # Sinus Tach - Baseline, intermittent - Likely partly??due to autonomic instability related to hx of [employer] insults described above?? Diet Regular diet Discharge planning Medically stable for discharge. No rehab acceptances as of yet. His current nursing home is unable to find first floor room for him. CM working with [facility] for further options. Lines/Access None Morse catheter None DVT Prophylaxis Enoxaparin Code status FULL Team Pager [phone] PCP NAKIA Cifuentes Attestation IPI Certification I certify that I am a D-H credentialed attending provider with admitting privileges and that the patient meets or has met medical necessity to require an inpatient IPI level of care meeting a minimumof two midnights or is on the [facility] inpatient only procedure list (status C) due to: the patient has met Inpatient IPI criteria and is awaiting rehabilitation or half-way facility placement withactive referrals in process REBA LINTON MD * Kya Enriquez MD - 09/26/2017 2:54 PM EDT Hospital Medicine Daily Progress Note Admit Date: 09/02/2017 Hospital Day 24 days Active Hospital Problems Diagnosis ??? S/P ORIF left acetabulum fracture 09/04/2017 Dr. Lance ??? Postoperative anemia due to acute blood loss ??? Diabetes insipidus ??? Adrenal insufficiency ??? Panhypopituitarism ??? Seizure disorder ??? Hypothyroidism Resolved Hospital Problems Diagnosis Date Resolved No resolved problems to display. PMH Active Non-Hospital Problems Diagnosis ??? Insomnia ??? Blind ??? CVA (cerebral vascular accident) ??? Urinary incontinence Inpatient Medications: Scheduled ??? desmopressin 0.05 mg Oral 3 times per day ??? methyl salicylate-menthol Topical (Top) BID ??? calcium carbonate 500 mg Oral BID ??? cholecalciferol (Vitamin D3) 1,000 Units Oral Daily ??? hydrocortisone 20 mg Oral QAM ??? hydrocortisone 10 mg Oral Daily at Noon ??? hydrocortisone 10 mg Oral Q24H ??? enoxaparin 40 mg Subcutaneous Nightly ??? levothyroxine 150 mcg Oral QAM ??? melatonin 3 mg Oral Nightly ??? pantoprazole 40 mg Oral QAM AC ??? QUEtiapine 250 mg Oral Nightly ??? traZODone 50 mg Oral Nightly ??? zonisamide 200 mg Oral Nightly Continuous infusions: PRN: bisacodyl, LORazepam, HYDROmorphone, haloperidol, polyethylene glycol (MIRALAX)oral powder, senna-docusate, lidocaine, naphazoline-pheniramine ID: 27 y/o man with pmhx history of??resection of pituitary tumor, intraoperative hemorrhage and??CVA, cognitive impairment, cortical blindness, partial L sided paralysis, seizure disorder, and panhypopituitarism (with DI, adrenal insufficiency, hypothyroidism, hypogonadism) here with a left acetabular fracture that occurred in the setting of a possible seizure. Interval History: - No acute events overnight - Doing well this AM, sleeping comfortably Review of Systems: Unable to obtain full review of systems due to patient's mental status Physical Exam Vitals Range last 24 hrs Temperature Temp: [35.5 ??C (95.9 ??F)-36 ??C (96.8 ??F)] Heart Rate Heart Rate: -- Blood Pressure BP: (114-158)/(82-104) Respiratory Rate Resp: [18] SpO2 SpO2: [98 %-100 %] Intake/Output Summary (Last 24 hours) at 09/26/17 1454 Last data filed at 09/26/17 0700 Gross per 24 hour Intake 750 ml Output 0 ml Net 750 ml No data found. Gen: NAD, lying in bed, occasionally moaning CV: Normal rate, regular rhythm, no murmurs/rubs/gallups auscultated Pulm: No respiratory distress Abd: Non-distended, lower abd incision c/d/i Ext: No pedal edema, 2+ radial/DP pulses Skin: Warm, dry, no rashes LABS: Last 3 wbc, hgb, hct plt Recent Labs 09/19/17 0321 09/18/17 0546 09/17/17 0628 WBC 7.4 6.6 6.8 HGB 9.1* 8.2* 8.1* HCT 31.4* 26.2* 26.0* PLATELET 648* 580* 497* Last 3 Lytes Recent Labs 09/25/17 1222 09/24/17 1140 09/22/17 0332 NA 137 137 139 K 4.0 4.0 4.1 CL 98 100 100 CO2 24 26 26 BUN 16 13 20 CREATININE 0.68* 0.78* 0.86 IMAGING: Pelvis Xray 09/23: IMPRESSION Prior fixation of the left pelvic fracture. No change in appearance. Assessment: 27 y/o man with pmhx history of??resection of pituitary tumor, intraoperative hemorrhage and??CVA, cognitive impairment, cortical blindness, partial L sided paralysis, seizure disorder, and panhypopituitarism (with DI, adrenal insufficiency, hypothyroidism, hypogonadism) here with a left acetabular fracture that occurred in the setting of a possible seizure. ?? He is now s/p operative repair on 09/04 with post operative course c/b issues with sodium and fluid homeostasis which has stabilized with re-initiation of his home regimen of DDAVP. His hemoglobin has stabilized with decreased lab draws and it is likely the source of his anemia was iatrogenic. His sodium continues to fluctuate with his fluid intake, and patient will need to be prompted to drink up to his 3L restriction as his thirst drive is impaired. He is medically stable for discharge. ?? Plan: # Panhypopituitarism # Acute Hyponatremia (resolved) - DI: Sodium improved today. Continue DDAVP via home schedule (0700, 1200, 1900). Continue 3 L fluid restriction. Encourage drinking up to that 3L restriction. - Adrenal insufficiency - Continue home hydrocortisone (20mg at 0700, 10mg at 1200 and 1900) - Hypothyroidism - TFT's at goal - continue levothyroxine 150 mcg - Hypogonadism - will continue androgel supplementation outpatienty - Appreciate Endocrine input on all of the above ?? # Acetabular fracture - S/p operative repair 09/04 - Continue pain control with scheduled tylenol and prn po dilaudid - Continue DVT ppx with lovenox - PT/OT -- NWB LLE, OK for stand pivot transfer from wheelchair per Ortho - repeat pelvis xray on 10/09 to assess for healing and determine weight bearing status ? # Anemia, suspected due to iatrogenic cause - Responded appropriately to 1U PRBC on 09/16 - Will continue to monitor for changes in symptoms - Minimizing blood draws otherwise where able ?? # Seizure d/o with breakthrough seizure after no seizures for 4 years: Stable. - S/p Zonesamide load of 400mg, now 200mg QHS per Neuro # Decreased bone mineral density - Ca/ Vit D recommended # Sinus Tach - Baseline, intermittent - Likely partly??due to autonomic instability related to hx of [employer] insults described above?? IV access: none Tubes/Drains: none DVT PPX: Lovenox 40mg QHS Anticipated Disposition: Medically stable for discharge. No rehab acceptances as of yet. His current nursing home is unable to find first floor room for him. CM working with [facility] for further options. Goals of Care: Full code Team Pager(MD Coverage 27/01): #[phone] PCP: NAKIA Cifuentes [phone] Kya Enriquez MD 09/26/2017 * Gabe Marinelli RN - 09/25/2017 6:32 PM EDT VSS, no signs or symptoms of infection or bleeding at this time. Pain appears to be well controlledwith prn medications. Drowsy this morning, and seemed to tired to go to the gym with PT, but did stand and pivot to chair twice for meals today. No agitation or combative behaviors this shift. Currently sitting quietly, will continue to monitor. See MAR and Doc Flowsheets for medication administration and assessment details. * Kya Enriquez MD - 09/25/2017 10:49 AM EDT Hospital Medicine Daily Progress Note Admit Date: 09/02/2017 Hospital Day 23 days Active Hospital Problems Diagnosis ??? S/P ORIF left acetabulum fracture 09/04/2017 Dr. Lance ??? Postoperative anemia due to acute blood loss ??? Diabetes insipidus ??? Adrenal insufficiency ??? Panhypopituitarism ??? Seizure disorder ??? Hypothyroidism Resolved Hospital Problems Diagnosis Date Resolved No resolved problems to display. PMH Active Non-Hospital Problems Diagnosis ??? Insomnia ??? Blind ??? CVA (cerebral vascular accident) ??? Urinary incontinence Inpatient Medications: Scheduled ??? desmopressin 0.05 mg Oral 3 times per day ??? methyl salicylate-menthol Topical (Top) BID ??? calcium carbonate 500 mg Oral BID ??? cholecalciferol (Vitamin D3) 1,000 Units Oral Daily ??? hydrocortisone 20 mg Oral QAM ??? hydrocortisone 10 mg Oral Daily at Noon ??? hydrocortisone 10 mg Oral Q24H ??? enoxaparin 40 mg Subcutaneous Nightly ??? levothyroxine 150 mcg Oral QAM ??? melatonin 3 mg Oral Nightly ??? pantoprazole 40 mg Oral QAM AC ??? QUEtiapine 250 mg Oral Nightly ??? traZODone 50 mg Oral Nightly ??? zonisamide 200 mg Oral Nightly Continuous infusions: PRN: bisacodyl, LORazepam, HYDROmorphone, haloperidol, polyethylene glycol (MIRALAX)oral powder, senna-docusate, lidocaine, naphazoline-pheniramine ID: 27 y/o man with pmhx history of??resection of pituitary tumor, intraoperative hemorrhage and??CVA, cognitive impairment, cortical blindness, partial L sided paralysis, seizure disorder, and panhypopituitarism (with DI, adrenal insufficiency, hypothyroidism, hypogonadism) here with a left acetabular fracture that occurred in the setting of a possible seizure. Interval History: - No acute events overnight - Doing well this AM with no signs of pain or distress Review of Systems: Unable to obtain full review of systems due to patient's mental status Physical Exam Vitals Range last 24 hrs Temperature Temp: [36.1 ??C (97 ??F)-36.6 ??C (97.9 ??F)] Heart Rate Heart Rate: -- Blood Pressure BP: (129-147)/(87) Respiratory Rate Resp: [17-18] SpO2 SpO2: [96 %-98 %] Intake/Output Summary (Last 24 hours) at 09/25/17 1049 Last data filed at 09/24/17 2300 Gross per 24 hour Intake 820 ml Output 0 ml Net 820 ml No data found. Gen: NAD, lying in bed, occasionally moaning CV: Normal rate, regular rhythm, no murmurs/rubs/gallups auscultated Pulm: No respiratory distress Abd: Non-distended Ext: No pedal edema, 2+ radial/DP pulses Skin: Warm, dry, no rashes LABS: Last 3 wbc, hgb, hct plt Recent Labs 09/19/17 0321 09/18/17 0546 09/17/17 0628 WBC 7.4 6.6 6.8 HGB 9.1* 8.2* 8.1* HCT 31.4* 26.2* 26.0* PLATELET 648* 580* 497* Last 3 Lytes Recent Labs 09/24/17 1140 09/22/17 0332 09/21/17 1025 NA 137 139 141 K 4.0 4.1 3.8 CL 100 100 102 CO2 26 26 28 BUN 13 20 19 CREATININE 0.78* 0.86 0.87 IMAGING: Pelvis Xray 09/23: IMPRESSION Prior fixation of the left pelvic fracture. No change in appearance. Assessment: 27 y/o man with pmhx history of??resection of pituitary tumor, intraoperative hemorrhage and??CVA, cognitive impairment, cortical blindness, partial L sided paralysis, seizure disorder, and panhypopituitarism (with DI, adrenal insufficiency, hypothyroidism, hypogonadism) here with a left acetabular fracture that occurred in the setting of a possible seizure. ?? He is now s/p operative repair on 09/04 with post operative course c/b issues with sodium and fluid homeostasis which has stabilized with re-initiation of his home regimen of DDAVP. His hemoglobin has stabilized with decreased lab draws and it is likely the source of his anemia was iatrogenic. His sodium continues to fluctuate with his fluid intake, and patient will need to be prompted to drink up to his 3L restriction as his thirst drive is impaired. He is medically stable for discharge. ?? Plan: # Panhypopituitarism # Acute Hyponatremia (resolved) - DI: Sodium improved today. Continue DDAVP via home schedule (0700, 1200, 1900). Continue 3 L fluid restriction. Encourage drinking up to that 3L restriction. - Adrenal insufficiency - Continue home hydrocortisone (20mg at 0700, 10mg at 1200 and 1900) - Hypothyroidism - TFT's at goal - continue levothyroxine 150 mcg - Hypogonadism - will continue androgel supplementation outpatienty - Appreciate Endocrine input on all of the above ?? # Acetabular fracture - S/p operative repair 09/04 - Continue pain control with scheduled tylenol and prn po dilaudid - Continue DVT ppx with lovenox - PT/OT -- NWB LLE, OK for stand pivot transfer from wheelchair per Ortho - repeat pelvis xray on 10/09 to assess for healing and determine weight bearing status ? # Anemia, suspected due to iatrogenic cause - Responded appropriately to 1U PRBC on 09/16 - Will continue to monitor for changes in symptoms - Minimizing blood draws otherwise where able ?? # Seizure d/o with breakthrough seizure after no seizures for 4 years: Stable. - S/p Zonesamide load of 400mg, now 200mg QHS per Neuro # Decreased bone mineral density - Ca/ Vit D recommended # Sinus Tach - Baseline, intermittent - Likely partly??due to autonomic instability related to hx of [employer] insults described above?? IV access: none Tubes/Drains: none DVT PPX: Lovenox 40mg QHS Anticipated Disposition: Medically stable for discharge. No rehab acceptances as of yet. His current nursing home is unable to find first floor room for him. LUCAS working with [facility] for further options. Goals of Care: Full code Team Pager(MD Coverage 27/01): #[phone] PCP: NAKIA Cifuentes [phone] Kya Enriquez MD 09/25/2017 * Debbie Keller, DT - 09/24/2017 3:55 PM EDT Nutrition Services - Follow-up Note Miguel Angel Kim Isabella : 1990 AGE: 27 y.o. Patient Active Problem List Diagnosis Date Noted ??? *Hospital-S/P ORIF left acetabulum fracture 09/04/2017 Dr. Lance 09/02/2017 ??? Hospital-Postoperative anemia due to acute blood loss 09/04/2017 ??? Hospital-Diabetes insipidus 09/03/2017 ??? Hospital-Adrenal insufficiency 09/03/2017 ??? 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 Hospital-Seizure disorder 09/03/2017 ??? Insomnia 09/03/2017 ??? Blind 09/03/2017 ??? CVA (cerebral vascular accident) 09/03/2017 ??? Urinary incontinence 09/03/2017 ??? Hospital-Hypothyroidism 09/03/2017 Reason for Nutrition Intervention: Follow-up Diet Order: Regular Appetite: Good- per nursing Food allergies: NKFA Chewing/Swallowing difficulty: none noted- per nursing Ht Readings from Last 3 Encounters: 09/07/17 177.8 cm (5' 10) Wt Readings from Last 3 Encounters: 09/04/17 86.6 kg (191 lb) There is no height or weight on file to calculate BMI. Vitamins/Minerals: Vitamin D3, Tums noted. Assessment: Patient seen for follow up. Land Agent able to speak with nursing on pt's nutritional care.Nursing confirming fluid restriction.Suggest adding 3L fluid restriction to current diet order. Nursing reported a good appetite without difficulty chewing or swallowing. He is tolerating current diet without nausea or vomiting. Nursing stated pt consumed 50% PO intake at breakfast and 25-50% PO intake for lunch. Nursing stated pt ate a lot yesterday. Nursing had no further concerns at this time. Please contact Food and Nutrition services with any questions/ requests that may arise. Nutrition Plan: Suggest adding 3L fluid restriction to current diet order. Diet office sending menu daily. Recommend Daily Multi Vitamins. Encourage good po intake. Monitor weight. Support and encouragement provided. Nutrition services to follow weekly thru hospital course unless consulted in the interim. ADAM Kaur * Minerva Boyce RN - 09/24/2017 11:13 AM EDT Office of Care Management(OCM)/Newscast Producer(CM)/Discharge Planning Service: Medicine Pager # [phone] CM Minerva Boyce RN,BSN,MA,[facility] [phone] ?? Called Guardian /sister Bettina to update w d/c planning and pt status. Updated that: Is in room w cande lift so will be making transfers to chair, w/c etc. Staff working to find safe plan to help him w stand pivot that is safe for pt(requires 2 staff) andfor the staff as he gets combative - grabs hard, pinches etc. [facility] Director and [facility] Disabilities looking for first floor room. ? Agreed RNCM will call Mon/Wed/Fri w updates. Provided pagr [phone] as contact [facility] for now and she knows Darren may then transfer her to someone else. ?? Reviewed w who had also just spoken w guardian after I had and will contact w updates PRN clinical status- including plan for or outcome of any procedure. He has consulted w Ortho and pt will get XRAY at 6 weeks and he will be NWB pending outcome of thatXRAY. He will be non wgt bearing until healed as dtermined by XRAY ?? 09/23: Met w [facility] director cL [place] while he was visiting with pt. Barriers reviewed and remain unchanged. I notified him I had also had contact w Noel Estrella [facility] of [facility] Specialist and that she would be in touch w him regarding appropriate housing and is supportive of authorizing for extra aide services for pt at a SNF. ? * Kya Enriquez MD - 09/24/2017 10:43 AM EDT Hospital Medicine Daily Progress Note Admit Date: 09/02/2017 Hospital Day 22 days Active Hospital Problems Diagnosis ??? S/P ORIF left acetabulum fracture 09/04/2017 Dr. Lance ??? Postoperative anemia due to acute blood loss ??? Diabetes insipidus ??? Adrenal insufficiency ??? Panhypopituitarism ??? Seizure disorder ??? Hypothyroidism Resolved Hospital Problems Diagnosis Date Resolved No resolved problems to display. PMH Active Non-Hospital Problems Diagnosis ??? Insomnia ??? Blind ??? CVA (cerebral vascular accident) ??? Urinary incontinence Inpatient Medications: Scheduled ??? desmopressin 0.05 mg Oral 3 times per day ??? methyl salicylate-menthol Topical (Top) BID ??? calcium carbonate 500 mg Oral BID ??? cholecalciferol (Vitamin D3) 1,000 Units Oral Daily ??? hydrocortisone 20 mg Oral QAM ??? hydrocortisone 10 mg Oral Daily at Noon ??? hydrocortisone 10 mg Oral Q24H ??? enoxaparin 40 mg Subcutaneous Nightly ??? levothyroxine 150 mcg Oral QAM ??? melatonin 3 mg Oral Nightly ??? pantoprazole 40 mg Oral QAM AC ??? QUEtiapine 250 mg Oral Nightly ??? traZODone 50 mg Oral Nightly ??? zonisamide 200 mg Oral Nightly Continuous infusions: PRN: bisacodyl, LORazepam, HYDROmorphone, haloperidol, polyethylene glycol (MIRALAX)oral powder, senna-docusate, lidocaine, naphazoline-pheniramine ID: 27 y/o man with pmhx history of??resection of pituitary tumor, intraoperative hemorrhage and??CVA, cognitive impairment, cortical blindness, partial L sided paralysis, seizure disorder, and panhypopituitarism (with DI, adrenal insufficiency, hypothyroidism, hypogonadism) here with a left acetabular fracture that occurred in the setting of a possible seizure. Interval History: - No acute events overnight - pelvis Xray yesterday w/o changes - Sitting in chair Review of Systems: Unable to obtain full review of systems due to patient's mental status Physical Exam Vitals Range last 24 hrs Temperature Temp: [36 ??C (96.8 ??F)-36.2 ??C (97.2 ??F)] Heart Rate Heart Rate: [78] Blood Pressure BP: (130-146)/(81-98) Respiratory Rate Resp: [19] SpO2 SpO2: [97 %-98 %] Intake/Output Summary (Last 24 hours) at 09/24/17 1043 Last data filed at 09/24/17 1000 Gross per 24 hour Intake 60 ml Output 0 ml Net 60 ml No data found. Gen: NAD, lying in bed, occasionally moaning CV: Normal rate, regular rhythm, no murmurs/rubs/gallups auscultated Pulm: Normal respiratory effort, clear to auscultation bilaterally, normal expiratory phase, no wheezing Abd: Non-distended Ext: No pedal edema, 2+ radial/DP pulses Skin: Warm, dry, no rashes LABS: Last 3 wbc, hgb, hct plt Recent Labs 09/19/17 0321 09/18/17 0546 09/17/17 0628 WBC 7.4 6.6 6.8 HGB 9.1* 8.2* 8.1* HCT 31.4* 26.2* 26.0* PLATELET 648* 580* 497* Last 3 Lytes Recent Labs 09/22/17 0332 09/21/17 1025 09/20/17 0551 NA 139 141 144 K 4.1 3.8 3.6 CL 100 102 104 CO2 26 28 26 BUN 20 19 22* CREATININE 0.86 0.87 0.90 IMAGING: Pelvis Xray 09/23: IMPRESSION Prior fixation of the left pelvic fracture. No change in appearance. Assessment: 27 y/o man with pmhx history of??resection of pituitary tumor, intraoperative hemorrhage and??CVA, cognitive impairment, cortical blindness, partial L sided paralysis, seizure disorder, and panhypopituitarism (with DI, adrenal insufficiency, hypothyroidism, hypogonadism) here with a left acetabular fracture that occurred in the setting of a possible seizure. ?? He is now s/p operative repair on 09/04 with post operative course c/b issues with sodium and fluid homeostasis which has stabilized with re-initiation of his home regimen of DDAVP. His hemoglobin has stabilized with decreased lab draws and it is likely the source of his anemia was iatrogenic. His sodium continues to fluctuate with his fluid intake, and patient will need to be prompted to drink up to his 3L restriction as his thirst drive is impaired. He is medically stable for discharge. ?? Plan: # Panhypopituitarism # Acute Hyponatremia (resolved) - DI: Sodium improved today. Continue DDAVP via home schedule (0700, 1200, 1900). Continue 3 L fluid restriction. Encourage drinking up to that 3L restriction. - Adrenal insufficiency - Continue home hydrocortisone (20mg at 0700, 10mg at 1200 and 1900) - Hypothyroidism - TFT's at goal - continue levothyroxine 150 mcg - Hypogonadism - will continue androgel supplementation outpatient, will re- engage with endocrine given prolonged stay - Appreciate Endocrine input on all of the above ?? # Acetabular fracture - S/p operative repair 09/04 - Continue pain control with scheduled tylenol and prn po dilaudid - Continue DVT ppx with lovenox - PT/OT -- NWB LLE, OK for stand pivot transfer from wheelchair per Ortho - repeat pelvis xray on 10/09 to assess for healing and determine weight bearing status - Plan to remove carisa today ? # Anemia, suspected due to iatrogenic cause - Responded appropriately to 1U PRBC on 09/16 - Will continue to monitor for changes in symptoms - Minimizing blood draws otherwise where able ?? # Seizure d/o with breakthrough seizure after no seizures for 4 years: Stable. - S/p Zonesamide load of 400mg, now 200mg QHS per Neuro # Decreased bone mineral density - Ca/ Vit D recommended # Sinus Tach - Baseline, intermittent - Likely partly??due to autonomic instability related to hx of [employer] insults described above?? IV access: none Tubes/Drains: none DVT PPX: Lovenox 40mg QHS Anticipated Disposition: Medically stable for discharge. No rehab acceptances as of yet. His current nursing home is unable to find first floor room for him. CM working with [facility] for further options. Goals of Care: Full code Team Pager(MD Coverage 27/01): #[phone] PCP: NAKIA Cifuentes [phone] Kya Enriquez MD 09/24/2017 * Gabe Marinelli RN - 09/23/2017 7:03 PM EDT VSS, no signs or symptoms of infection or bleeding at this time. Pain appears to be well controlledwith prn medications. MD notified of concerning popping sound heard by caregiver while pt moving inbed accompanied by increase in pain/agitation. Portable xray performed with no changes noted per imaging report. Planning for discharge to inpatient facility pending bed placement. Currently resting quietly, will continue to monitor. See MAR and Doc Flowsheets for medication administration and assessment details. * Kya Enriquez MD - 09/23/2017 11:56 AM EDT Hospital Medicine Daily Progress Note Admit Date: 09/02/2017 Hospital Day 21 days Active Hospital Problems Diagnosis ??? S/P ORIF left acetabulum fracture 09/04/2017 Dr. Lance ??? Postoperative anemia due to acute blood loss ??? Diabetes insipidus ??? Adrenal insufficiency ??? Panhypopituitarism ??? Seizure disorder ??? Hypothyroidism Resolved Hospital Problems Diagnosis Date Resolved No resolved problems to display. PMH Active Non-Hospital Problems Diagnosis ??? Insomnia ??? Blind ??? CVA (cerebral vascular accident) ??? Urinary incontinence Inpatient Medications: Scheduled ??? desmopressin 0.05 mg Oral 3 times per day ??? methyl salicylate-menthol Topical (Top) BID ??? calcium carbonate 500 mg Oral BID ??? cholecalciferol (Vitamin D3) 1,000 Units Oral Daily ??? hydrocortisone 20 mg Oral QAM ??? hydrocortisone 10 mg Oral Daily at Noon ??? hydrocortisone 10 mg Oral Q24H ??? enoxaparin 40 mg Subcutaneous Nightly ??? levothyroxine 150 mcg Oral QAM ??? melatonin 3 mg Oral Nightly ??? pantoprazole 40 mg Oral QAM AC ??? QUEtiapine 250 mg Oral Nightly ??? traZODone 50 mg Oral Nightly ??? zonisamide 200 mg Oral Nightly Continuous infusions: PRN: bisacodyl, LORazepam, HYDROmorphone, haloperidol, polyethylene glycol (MIRALAX)oral powder, senna-docusate, lidocaine, naphazoline-pheniramine ID: 27 y/o man with pmhx history of??resection of pituitary tumor, intraoperative hemorrhage and??CVA, cognitive impairment, cortical blindness, partial L sided paralysis, seizure disorder, and panhypopituitarism (with DI, adrenal insufficiency, hypothyroidism, hypogonadism) here with a left acetabular fracture that occurred in the setting of a possible seizure. Interval History: - No acute events overnight - very interactive this morning, shaking hands - Moving LLE more - Eating well Review of Systems: Unable to obtain full review of systems due to patient's mental status Physical Exam Vitals Range last 24 hrs Temperature Temp: [36.4 ??C (97.5 ??F)-36.6 ??C (97.9 ??F)] Heart Rate Heart Rate: -- Blood Pressure BP: (134-135)/(83-94) Respiratory Rate Resp: [18] SpO2 SpO2: [93 %-98 %] Intake/Output Summary (Last 24 hours) at 09/23/17 1156 Last data filed at 09/23/17 1000 Gross per 24 hour Intake 920 ml Output 0 ml Net 920 ml No data found. Gen: NAD, lying in bed, occasionally moaning CV: Normal rate, regular rhythm, no murmurs/rubs/gallups auscultated Pulm: Normal respiratory effort, clear to auscultation bilaterally, normal expiratory phase, mild upper airway wheezes with no crackles Abd: Non-distended, soft, non-tender, incision c/d/i, no fluctuance or purulence at incision site Ext: No pedal edema, 2+ radial/DP pulses Skin: Warm, dry, no rashes LABS: Last 3 wbc, hgb, hct plt Recent Labs 09/19/17 0321 09/18/17 0546 09/17/17 0628 WBC 7.4 6.6 6.8 HGB 9.1* 8.2* 8.1* HCT 31.4* 26.2* 26.0* PLATELET 648* 580* 497* Last 3 Lytes Recent Labs 09/22/17 0332 09/21/17 1025 09/20/17 0551 NA 139 141 144 K 4.1 3.8 3.6 CL 100 102 104 CO2 26 28 26 BUN 20 19 22* CREATININE 0.86 0.87 0.90 IMAGING: CXR 09/15/17: None new Assessment: 27 y/o man with pmhx history of??resection of pituitary tumor, intraoperative hemorrhage and??CVA, cognitive impairment, cortical blindness, partial L sided paralysis, seizure disorder, and panhypopituitarism (with DI, adrenal insufficiency, hypothyroidism, hypogonadism) here with a left acetabular fracture that occurred in the setting of a possible seizure. ?? He is now s/p operative repair on 09/04 with post operative course c/b issues with sodium and fluid homeostasis which has stabilized with re-initiation of his home regimen of DDAVP. His hemoglobin has stabilized with decreased lab draws and it is likely the source of his anemia was iatrogenic. His sodium continues to fluctuate with his fluid intake, and patient will need to be prompted to drink up to his 3L restriction as his thirst drive is impaired. He is medically stable for discharge. ?? Plan: # Panhypopituitarism # Acute Hyponatremia (resolved) - DI: Sodium improved today. Continue DDAVP via home schedule (0700, 1200, 1900). Continue 3 L fluid restriction. Encourage drinking up to that 3L restriction. - Adrenal insufficiency - Continue home hydrocortisone (20mg at 0700, 10mg at 1200 and 1900) - Hypothyroidism - TFT's at goal - continue levothyroxine 150 mcg - Hypogonadism - will continue androgel supplementation outpatient - Appreciate Endocrine input on all of the above ?? # Acetabular fracture - S/p operative repair 09/04 - Continue pain control with scheduled tylenol and prn po dilaudid - Continue DVT ppx with lovenox - PT/OT -- NWB LLE, OK for stand pivot transfer from wheelchair per Ortho - Plan to remove carisa today ? # Anemia, suspected due to iatrogenic cause - Responded appropriately to 1U PRBC on 09/16 - Will continue to monitor for changes in symptoms - Minimizing blood draws otherwise where able ?? # Seizure d/o with breakthrough seizure after no seizures for 4 years: Stable. - S/p Zonesamide load of 400mg, now 200mg QHS per Neuro # Decreased bone mineral density - Ca/ Vit D recommended # Sinus Tach - Baseline, intermittent - Likely partly??due to autonomic instability related to hx of [employer] insults described above?? IV access: none Tubes/Drains: none DVT PPX: Lovenox 40mg QHS Anticipated Disposition: Medically stable for discharge. No rehab acceptances as of yet. His current nursing home is unable to find first floor room for him. CM working with [facility] for further options. Goals of Care: Full code Team Pager( Coverage 27/01): #[phone] PCP: NAKIA Cifuentes [phone] Kya Enriquez MD 09/23/2017 Spoke with ortho to clarify weight bearing status. Given the need for plating, patient will be NWB pending an x-ray ~5 weeks post op (Around 10/09) at which time ortho will re-evaluate. * Kya Enriquez MD - 09/22/2017 3:32 PM EDT Hospital Medicine Daily Progress Note Admit Date: 09/02/2017 Hospital Day 20 days Active Hospital Problems Diagnosis ??? S/P ORIF left acetabulum fracture 09/04/2017 Dr. Lance ??? Postoperative anemia due to acute blood loss ??? Diabetes insipidus ??? Adrenal insufficiency ??? Panhypopituitarism ??? Seizure disorder ??? Hypothyroidism Resolved Hospital Problems Diagnosis Date Resolved No resolved problems to display. PMH Active Non-Hospital Problems Diagnosis ??? Insomnia ??? Blind ??? CVA (cerebral vascular accident) ??? Urinary incontinence Inpatient Medications: Scheduled ??? desmopressin 0.05 mg Oral 3 times per day ??? methyl salicylate-menthol Topical (Top) BID ??? calcium carbonate 500 mg Oral BID ??? cholecalciferol (Vitamin D3) 1,000 Units Oral Daily ??? hydrocortisone 20 mg Oral QAM ??? hydrocortisone 10 mg Oral Daily at Noon ??? hydrocortisone 10 mg Oral Q24H ??? enoxaparin 40 mg Subcutaneous Nightly ??? levothyroxine 150 mcg Oral QAM ??? melatonin 3 mg Oral Nightly ??? pantoprazole 40 mg Oral QAM AC ??? QUEtiapine 250 mg Oral Nightly ??? traZODone 50 mg Oral Nightly ??? zonisamide 200 mg Oral Nightly Continuous infusions: PRN: bisacodyl, LORazepam, HYDROmorphone, haloperidol, polyethylene glycol (MIRALAX)oral powder, senna-docusate, lidocaine, naphazoline-pheniramine ID: 27 y/o man with pmhx history of??resection of pituitary tumor, intraoperative hemorrhage and??CVA, cognitive impairment, cortical blindness, partial L sided paralysis, seizure disorder, and panhypopituitarism (with DI, adrenal insufficiency, hypothyroidism, hypogonadism) here with a left acetabular fracture that occurred in the setting of a possible seizure. Interval History: - No acute events overnight - Miguel Angel gives 'thumbs up' when asked if he feels well - [place] removed by orthopedics today Review of Systems: Unable to obtain full review of systems due to patient's mental status Physical Exam Vitals Range last 24 hrs Temperature Temp: [36.4 ??C (97.5 ??F)-36.6 ??C (97.9 ??F)] Heart Rate Heart Rate: [88-93] Blood Pressure BP: (130-139)/(78-91) Respiratory Rate Resp: [16-20] SpO2 SpO2: [92 %-99 %] Intake/Output Summary (Last 24 hours) at 09/22/17 1532 Last data filed at 09/21/17 1540 Gross per 24 hour Intake 360 ml Output 0 ml Net 360 ml No data found. Gen: NAD, lying in bed, able to respond to questions with one word answers at baseline CV: Normal rate, regular rhythm, no murmurs/rubs/gallups auscultated Pulm: Normal respiratory effort, speaking normally, clear to auscultation bilaterally, normal expiratory phase, mild upper airway wheezes with no crackles Abd: Non-distended, normal bowel sounds in all 4 quadrants, soft, non-tender, incision c/d/i, no fluctuance or purulence at incision site Ext: No pedal edema, 2+ radial/DP pulses Skin: Warm, dry, no rashes LABS: Last 3 wbc, hgb, hct plt Recent Labs 09/19/17 0321 09/18/17 0546 09/17/17 0628 WBC 7.4 6.6 6.8 HGB 9.1* 8.2* 8.1* HCT 31.4* 26.2* 26.0* PLATELET 648* 580* 497* Last 3 Lytes Recent Labs 09/22/17 0332 09/21/17 1025 09/20/17 0551 NA 139 141 144 K 4.1 3.8 3.6 CL 100 102 104 CO2 26 28 26 BUN 20 19 22* CREATININE 0.86 0.87 0.90 IMAGING: CXR 09/15/17: None new Assessment: 27 y/o man with pmhx history of??resection of pituitary tumor, intraoperative hemorrhage and??CVA, cognitive impairment, cortical blindness, partial L sided paralysis, seizure disorder, and panhypopituitarism (with DI, adrenal insufficiency, hypothyroidism, hypogonadism) here with a left acetabular fracture that occurred in the setting of a possible seizure. ?? He is now s/p operative repair on 09/04 with post operative course c/b issues with sodium and fluid homeostasis which has stabilized with re-initiation of his home regimen of DDAVP. His hemoglobin has stabilized with decreased lab draws and it is likely the source of his anemia was iatrogenic. His sodium continues to fluctuate with his fluid intake, and patient will need to be prompted to drink up to his 3L restriction as his thirst drive is impaired. He is medically stable for discharge. ?? Plan: # Panhypopituitarism # Acute Hyponatremia (resolved) - DI: Sodium improved today. Continue DDAVP every 8 hours. Continue 3 L fluid restriction. Encourage drinking up to that 3L restriction. Recheck sodium in AM. If stable. Stop trending labs. - Adrenal insufficiency - Continue home hydrocortisone (20mg at 0700, 10mg at 1200 and 1900) - Hypothyroidism - TFT's at goal - continue levothyroxine 150 mcg - Hypogonadism - will continue androgel supplementation outpatient - Appreciate Endocrine input on all of the above ?? # Acetabular fracture - S/p operative repair 09/04 - Continue pain control with scheduled tylenol and prn po dilaudid - Continue DVT ppx with lovenox - PT/OT -- NWB LLE, OK for stand pivot transfer from wheelchair per Ortho - Plan to remove carisa today ? # Anemia, suspected due to iatrogenic cause - Responded appropriately to 1U PRBC on 09/16 - Will continue to monitor for changes in symptoms - Minimizing blood draws otherwise where able ?? # Seizure d/o with breakthrough seizure after no seizures for 4 years: Stable. - S/p Zonesamide load of 400mg, now 200mg QHS per Neuro # Decreased bone mineral density - Ca/ Vit D recommended # Sinus Tach - Baseline, intermittent - Likely partly??due to autonomic instability related to hx of [employer] insults described above?? IV access: none Tubes/Drains: none DVT PPX: Lovenox 40mg QHS Anticipated Disposition: Medically stable for discharge. No rehab acceptances as of yet. His current nursing home is unable to find first floor room for him. LUCAS working with [facility] for further options. Goals of Care: Full code Team Pager( Coverage 27/01): #[phone] PCP: NAKIA Cifuentes [phone] Kya Enriquez MD 09/22/2017 * Kya Enriquez MD - 09/21/2017 12:11 PM EDT Hospital Medicine Daily Progress Note Admit Date: 09/02/2017 Hospital Day 19 days Active Hospital Problems Diagnosis ??? S/P ORIF left acetabulum fracture 09/04/2017 Dr. Lance ??? Postoperative anemia due to acute blood loss ??? Diabetes insipidus ??? Adrenal insufficiency ??? Panhypopituitarism ??? Seizure disorder ??? Hypothyroidism Resolved Hospital Problems Diagnosis Date Resolved No resolved problems to display. PMH Active Non-Hospital Problems Diagnosis ??? Insomnia ??? Blind ??? CVA (cerebral vascular accident) ??? Urinary incontinence Inpatient Medications: Scheduled ??? methyl salicylate-menthol Topical (Top) BID ??? desmopressin 0.05 mg Oral Q8H ??? calcium carbonate 500 mg Oral BID ??? cholecalciferol (Vitamin D3) 1,000 Units Oral Daily ??? hydrocortisone 20 mg Oral QAM ??? hydrocortisone 10 mg Oral Daily at Noon ??? hydrocortisone 10 mg Oral Q24H ??? enoxaparin 40 mg Subcutaneous Nightly ??? levothyroxine 150 mcg Oral QAM ??? melatonin 3 mg Oral Nightly ??? pantoprazole 40 mg Oral QAM AC ??? QUEtiapine 250 mg Oral Nightly ??? traZODone 50 mg Oral Nightly ??? zonisamide 200 mg Oral Nightly Continuous infusions: PRN: LORazepam, HYDROmorphone, haloperidol, polyethylene glycol (MIRALAX)oral powder, senna-docusate, lidocaine, naphazoline-pheniramine ID: 27 y/o man with pmhx history of??resection of pituitary tumor, intraoperative hemorrhage and??CVA, cognitive impairment, cortical blindness, partial L sided paralysis, seizure disorder, and panhypopituitarism (with DI, adrenal insufficiency, hypothyroidism, hypogonadism) here with a left acetabular fracture that occurred in the setting of a possible seizure. Interval History: - No acute events overnight - Miguel Angel gives 'thumbs up' when asked if he feels well - Continued mild erythema around incision site, although no fluctuance or drainage Review of Systems: Unable to obtain full review of systems due to patient's mental status Physical Exam Vitals Range last 24 hrs Temperature Temp: [35.6 ??C (96.1 ??F)-36.4 ??C (97.5 ??F)] Heart Rate Heart Rate: [89] Blood Pressure BP: (118-130)/(75-84) Respiratory Rate Resp: [16-18] SpO2 SpO2: [94 %-99 %] Intake/Output Summary (Last 24 hours) at 09/21/17 1211 Last data filed at 09/21/17 0000 Gross per 24 hour Intake 720 ml Output 0 ml Net 720 ml No data found. Gen: NAD, lying in bed, able to respond to questions with one word answers at baseline CV: Normal rate, regular rhythm, no murmurs/rubs/gallups auscultated Pulm: Normal respiratory effort, speaking normally, clear to auscultation bilaterally, normal expiratory phase, mild upper airway wheezes with no crackles Abd: Non-distended, normal bowel sounds in all 4 quadrants, soft, non-tender, area around carisa is mildly pink, no fluctuance or purulence at incision site Ext: No pedal edema, 2+ radial/DP pulses Skin: Warm, dry, no rashes LABS: Last 3 wbc, hgb, hct plt Recent Labs 09/19/17 0321 09/18/17 0546 09/17/17 0628 WBC 7.4 6.6 6.8 HGB 9.1* 8.2* 8.1* HCT 31.4* 26.2* 26.0* PLATELET 648* 580* 497* Last 3 Lytes Recent Labs 09/21/17 1025 09/20/17 0551 09/19/17 0321 NA 141 144 149* K 3.8 3.6 4.0 CL 102 104 108* CO2 28 26 26 BUN 19 22* 16 CREATININE 0.87 0.90 1.02 IMAGING: CXR 09/15/17: None new Assessment: 27 y/o man with pmhx history of??resection of pituitary tumor, intraoperative hemorrhage and??CVA, cognitive impairment, cortical blindness, partial L sided paralysis, seizure disorder, and panhypopituitarism (with DI, adrenal insufficiency, hypothyroidism, hypogonadism) here with a left acetabular fracture that occurred in the setting of a possible seizure. ?? He is now s/p operative repair on 09/04 with post operative course c/b issues with sodium and fluid homeostasis which has stabilized with re-initiation of his home regimen of DDAVP. His hemoglobin has stabilized with decreased lab draws and it is likely the source of his anemia was iatrogenic. His sodium continues to fluctuate with his fluid intake, and patient will need to be prompted to drink up to his 3L restriction as his thirst drive is impaired. He is medically stable for discharge. ?? Plan: # Panhypopituitarism # Acute Hyponatremia (resolved) - DI: Sodium improved today. Continue DDAVP every 8 hours. Continue 3 L fluid restriction. Encourage drinking up to that 3L restriction. Recheck sodium in AM. If stable. Stop trending labs. - Adrenal insufficiency - Continue home hydrocortisone (20mg at 0700, 10mg at 1200 and 1900) - Hypothyroidism - TFT's at goal - continue levothyroxine 150 mcg - Hypogonadism - will continue androgel supplementation outpatient - Appreciate Endocrine input on all of the above ?? # Acetabular fracture - S/p operative repair 09/04 - Continue pain control with scheduled tylenol and prn po dilaudid - Continue DVT ppx with lovenox - PT/OT -- NWB LLE, OK for stand pivot transfer from wheelchair per Ortho - Plan to remove carisa today ? # Anemia, suspected due to iatrogenic cause - Responded appropriately to 1U PRBC on 09/16 - Will continue to monitor for changes in symptoms - Minimizing blood draws otherwise where able ?? # Seizure d/o with breakthrough seizure after no seizures for 4 years: Stable. - S/p Zonesamide load of 400mg, now 200mg QHS per Neuro # Decreased bone mineral density - Ca/ Vit D recommended # Sinus Tach - Baseline, intermittent - Likely partly??due to autonomic instability related to hx of [employer] insults described above?? IV access: none Tubes/Drains: none DVT PPX: Lovenox 40mg QHS Anticipated Disposition: Medically stable for discharge. No rehab acceptances as of yet. His current nursing home is unable to find first floor room for him. LUCAS working with [facility] for further options. Goals of Care: Full code Team Pager( Coverage 27/01): #[phone] PCP: NAKIA Cifuentes [phone] Kya Enriquez MD 09/21/2017 * Kya Enriquez MD - 09/20/2017 8:05 AM EDT Hospital Medicine Daily Progress Note Admit Date: 09/02/2017 Hospital Day 18 days Active Hospital Problems Diagnosis ??? S/P ORIF left acetabulum fracture 09/04/2017 Dr. Lance ??? Postoperative anemia due to acute blood loss ??? Diabetes insipidus ??? Adrenal insufficiency ??? Panhypopituitarism ??? Seizure disorder ??? Hypothyroidism Resolved Hospital Problems Diagnosis Date Resolved No resolved problems to display. PMH Active Non-Hospital Problems Diagnosis ??? Insomnia ??? Blind ??? CVA (cerebral vascular accident) ??? Urinary incontinence Inpatient Medications: Scheduled ??? methyl salicylate-menthol Topical (Top) BID ??? desmopressin 0.05 mg Oral Q8H ??? calcium carbonate 500 mg Oral BID ??? cholecalciferol (Vitamin D3) 1,000 Units Oral Daily ??? hydrocortisone 20 mg Oral QAM ??? hydrocortisone 10 mg Oral Daily at Noon ??? hydrocortisone 10 mg Oral Q24H ??? enoxaparin 40 mg Subcutaneous Nightly ??? levothyroxine 150 mcg Oral QAM ??? melatonin 3 mg Oral Nightly ??? pantoprazole 40 mg Oral QAM AC ??? QUEtiapine 250 mg Oral Nightly ??? traZODone 50 mg Oral Nightly ??? zonisamide 200 mg Oral Nightly Continuous infusions: PRN: LORazepam, HYDROmorphone, haloperidol, polyethylene glycol (MIRALAX)oral powder, senna-docusate, lidocaine, naphazoline-pheniramine ID: 27 y/o man with pmhx history of??resection of pituitary tumor, intraoperative hemorrhage and??CVA, cognitive impairment, cortical blindness, partial L sided paralysis, seizure disorder, and panhypopituitarism (with DI, adrenal insufficiency, hypothyroidism, hypogonadism) here with a left acetabular fracture that occurred in the setting of a possible seizure. Interval History: - Remained afebrile - No acute events overnight - Caregiver feels he is doing 'very well' - Miguel Angel gives 'thumbs up' when asked if he feels well - Continued mild erythema around incision site, although no fluctuance or drainage Review of Systems: Unable to obtain full review of systems due to patient's mental status Physical Exam Vitals Range last 24 hrs Temperature Temp: [36.8 ??C (98.2 ??F)-37 ??C (98.6 ??F)] Heart Rate Heart Rate: -- Blood Pressure BP: (130-131)/(75-90) Respiratory Rate Resp: [18-20] SpO2 SpO2: [90 %-93 %] Intake/Output Summary (Last 24 hours) at 09/20/17 0805 Last data filed at 09/20/17 0000 Gross per 24 hour Intake 1440 ml Output 0 ml Net 1440 ml No data found. Gen: NAD, lying in bed, able to respond to questions with one word answers at baseline HEENT: Oropharynx clear, moist mucus membranes CV: Normal rate, regular rhythm, no murmurs/rubs/gallups auscultated Pulm: Normal respiratory effort, speaking normally, clear to auscultation bilaterally, normal expiratory phase, mild upper airway wheezes with no crackles Abd: Non-distended, normal bowel sounds in all 4 quadrants, soft, non-tender, area around carisa is mildly pink, no fluctuance or purulence at incision site Ext: No pedal edema, 2+ radial/DP pulses Skin: Warm, dry, no rashes LABS: Last 3 wbc, hgb, hct plt Recent Labs 09/19/17 0321 09/18/17 0546 09/17/17 0628 WBC 7.4 6.6 6.8 HGB 9.1* 8.2* 8.1* HCT 31.4* 26.2* 26.0* PLATELET 648* 580* 497* Last 3 Lytes Recent Labs 09/20/17 0551 09/19/17 0321 09/18/17 0546 09/14/17 1409 NA 144 149* 144 < > 145 145 K 3.6 4.0 -- -- 3.6 CL 104 108* -- -- 104 CO2 26 26 -- -- 27 BUN 22* 16 -- -- 16 CREATININE 0.90 1.02 -- -- 0.92 < > = values in this interval not displayed. FSBG Trend No results for input(s): POCGLU in the last 72 hours. MICRO: No results for input(s): URINECULTURE in the last 720 hours. No results for input(s): GRAMSTAIN, BFCX, LOWERRESPCX, TISSUECX in the last 720 hours. Recent Labs 09/03/17 1756 09/03/17 1847 09/14/17 2051 BLOODCX No growth at 5 days. No growth at 5 days. No growth at 5 days. No growth at 5 days. ECG: Recent Labs 09/04/17 2230 DIAGLINE Sinus tachycardia Nonspecific ST abnormality Abnormal ECG No previous ECGs available Confirmed by MD Scottie, Sally ([id number]) on 09/05/2017 3:49:31 PM QTCCALC [id number] IMAGING: CXR 09/15/17: None new Assessment: 27 y/o man with pmhx history of??resection of pituitary tumor, intraoperative hemorrhage and??CVA, cognitive impairment, cortical blindness, partial L sided paralysis, seizure disorder, and panhypopituitarism (with DI, adrenal insufficiency, hypothyroidism, hypogonadism) here with a left acetabular fracture that occurred in the setting of a possible seizure. ?? He is now s/p operative repair on 09/04 with post operative course c/b issues with sodium and fluid homeostasis which has stabilized with re-initiation of his home regimen of DDAVP. His hemoglobin has stabilized with decreased lab draws and it is likely the source of his anemia was iatrogenic. His sodium continues to fluctuate with his fluid intake, and patient will need to be prompted to drink up to his 3L restriction as his thirst drive is impaired. He is medically stable for discharge. ?? Plan: # Panhypopituitarism # Acute Hyponatremia - DI: Sodium mildly elevated today in setting of poor PO intake. Continue DDAVP every 8 hours. Continue 3 L fluid restriction. Encourage drinking up to that 3L restriction. Recheck sodium in AM. If stable. Stop trending labs. - Adrenal insufficiency - Continue home hydrocortisone (20mg at 0700, 10mg at 1200 and 1900) - Hypothyroidism - TFT's at goal - continue levothyroxine 150 mcg - Hypogonadism - will continue androgel supplementation outpatient - Appreciate Endocrine input on all of the above ?? # Acetabular fracture - S/p operative repair 09/04 - Continue pain control with scheduled tylenol and prn po dilaudid - Continue DVT ppx with lovenox - PT/OT -- NWB LLE, OK for stand pivot transfer from wheelchair per Ortho - Plan to remove carisa today ? # Anemia, suspected due to iatrogenic cause - Responded appropriately to 1U PRBC on 09/16 - Will continue to monitor for changes in symptoms - Minimizing blood draws otherwise where able ?? # Seizure d/o with breakthrough seizure after no seizures for 4 years: Stable. - S/p Zonesamide load of 400mg, now 200mg QHS per Neuro # Decreased bone mineral density - Ca/ Vit D recommended # Sinus Tach - Baseline, intermittent - Likely partly??due to autonomic instability related to hx of [employer] insults described above?? IV access: none Tubes/Drains: none DVT PPX: Lovenox 40mg QHS Anticipated Disposition: Medically stable for discharge. No rehab acceptances as of yet. His current nursing home is unable to find first floor room for him. LUCAS working with [facility] for further options. Goals of Care: Full code Team Pager( Coverage 27/01): #[phone] PCP: NAKIA Cifuentes [phone] Kya Enriquez MD 09/20/2017 * Minerva Boyce RN - 09/19/2017 4:53 PM EDT Office of Care Management(OCM)/Newscast Producer(CM)/Discharge Planning Service: Medicine Pager # [phone] LUCAS Boyce,RN,BSN,MA,ACM pgr [phone] Housing Contacts for pt: ?? Noel Estrella [phone]: [facility] Dept of Aging and [place], Developmental Services Specialist ( Name provided by Office of the Public Guardian Alicia Joyce: [phone]) too late to reach Noel today. May be able to access Medicaid waiver funds, matched funding to assist. Also does the PASR for [facility]. Does is NOT under [employer] Medicaid program - he is under Developmental Services instead. ?? Lc Martinez-: Director [facility]): single agency contracted by [facility] to provide services/housing for Miguel Angel ?? Subha Tejeda [phone] is the RN of [facility] who oversees the nursing home Miguel Angel is in. She is notthere 27/01 but is similar to home health RN. Spoke w Lc and Subha together this afternoon: ?? They have not had success in past in getting SNF rehab for pts with his level of disabiities ?? They are currently providing caregivers from pt's nursing home in order to provide patient with sense of comfort and stability from those he knows, to interpret his needs to the staff. It is appropriate for them to touch/talk w pt to assist in calming and if [facility] ok with them wheeling him about in w/c it is ok with them. ?? Subha had great success in getting clinical and ability info from staff initially but of late theresponses have been that the person doesn't know. ?? [facility] has 5 homes all are full and pt's room is on 2nd floor 18 step walk up and there are stairs to enter the home. ?? The home that Miguel Angel is in is one [facility] rents so they can't make changes such as adding a ramp ?? Prior to injury pt was dressing w cueing, toileting w Q2 hr cueing to use bathroom- otherwise would be incontinent but the toileting regime was successful ?? They would not expect him to learn to use a urinal ?? Agreed to expand SNFs to Plan: Lc to visit Mon 09/23 to observe pt as is surprised to hear he is shouting out though usually is moaning. RNCM to contact Guardian about expanding SNFs and current d/c plan status And to contact Noel of [facility]. Clinical Leader working w staff to provide mobiilty etc status updates to Subha when she calls in. * Reba Linton MD - 09/19/2017 8:30 AM EDT Hospital Medicine Daily Progress Note Admit Date: 09/02/2017 Hospital Day 17 days Active Hospital Problems Diagnosis ??? S/P ORIF left acetabulum fracture 09/04/2017 Dr. Lance ??? Postoperative anemia due to acute blood loss ??? Diabetes insipidus ??? Adrenal insufficiency ??? Panhypopituitarism ??? Seizure disorder ??? Hypothyroidism Resolved Hospital Problems Diagnosis Date Resolved No resolved problems to display. PMH Active Non-Hospital Problems Diagnosis ??? Insomnia ??? Blind ??? CVA (cerebral vascular accident) ??? Urinary incontinence Inpatient Medications: Scheduled ??? methyl salicylate-menthol Topical (Top) BID ??? desmopressin 0.05 mg Oral Q8H ??? calcium carbonate 500 mg Oral BID ??? cholecalciferol (Vitamin D3) 1,000 Units Oral Daily ??? hydrocortisone 20 mg Oral QAM ??? hydrocortisone 10 mg Oral Daily at Noon ??? hydrocortisone 10 mg Oral Q24H ??? enoxaparin 40 mg Subcutaneous Nightly ??? levothyroxine 150 mcg Oral QAM ??? melatonin 3 mg Oral Nightly ??? pantoprazole 40 mg Oral QAM AC ??? QUEtiapine 250 mg Oral Nightly ??? traZODone 50 mg Oral Nightly ??? sodium chloride 0.9 % 5 mL Intravenous BID ??? zonisamide 200 mg Oral Nightly Continuous infusions: PRN: HYDROmorphone, haloperidol, LORazepam, polyethylene glycol (MIRALAX)oral powder, senna-docusate, sodium chloride 0.9 %, lidocaine, naphazoline-pheniramine ID: 27 y/o man with pmhx history of??resection of pituitary tumor, intraoperative hemorrhage and??CVA, cognitive impairment, cortical blindness, partial L sided paralysis, seizure disorder, and panhypopituitarism (with DI, adrenal insufficiency, hypothyroidism, hypogonadism) here with a left acetabular fracture that occurred in the setting of a possible seizure. Interval History: - Remained afebrile - Decreased fluid intake yesterday - Continued mild erythema around incision site, although no fluctuance or drainage Review of Systems: Unable to obtain full review of systems due to patient's mental status Physical Exam Vitals Range last 24 hrs Temperature Temp: [37 ??C (98.6 ??F)-37.5 ??C (99.5 ??F)] Heart Rate Heart Rate: -- Blood Pressure BP: (130)/(90) Respiratory Rate Resp: [20] SpO2 SpO2: [90 %] Intake/Output Summary (Last 24 hours) at 09/19/17 1026 Last data filed at 09/18/17 1824 Gross per 24 hour Intake 1366 ml Output 0 ml Net 1366 ml No data found. There is no height or weight on file to calculate BMI. Gen: NAD, lying in bed, able to respond to questions with one word answers at baseline HEENT: Oropharynx clear, moist mucus membranes CV: Normal rate, regular rhythm, no murmurs/rubs/gallups auscultated Pulm: Normal respiratory effort, speaking normally, clear to auscultation bilaterally, normal expiratory phase, mild upper airway wheezes with no crackles Abd: Non-distended, normal bowel sounds in all 4 quadrants, soft, non-tender, area around carisa is mildly pink, no fluctuance or purulence at incision site Ext: No pedal edema, 2+ radial/DP pulses Skin: Warm, dry, no rashes LABS: Last 3 wbc, hgb, hct plt Recent Labs 09/19/17 0321 09/18/17 0546 09/17/17 0628 WBC 7.4 6.6 6.8 HGB 9.1* 8.2* 8.1* HCT 31.4* 26.2* 26.0* PLATELET 648* 580* 497* Last 3 Lytes Recent Labs 09/19/17 0321 09/18/17 0546 09/17/17 1249 09/14/17 1409 09/11/17 0347 NA 149* 144 136 < > 145 145 < > 128* K 4.0 -- -- -- 3.6 -- 3.5 CL 108* -- -- -- 104 -- 91* CO2 26 -- -- -- 27 -- 24 BUN 16 -- -- -- 16 -- 14 CREATININE 1.02 -- -- -- 0.92 -- 0.63* < > = values in this interval not displayed. FSBG Trend No results for input(s): POCGLU in the last 72 hours. MICRO: No results for input(s): URINECULTURE in the last 720 hours. No results for input(s): GRAMSTAIN, BFCX, LOWERRESPCX, TISSUECX in the last 720 hours. Recent Labs 09/03/17 1756 09/03/17 1847 09/14/17 2051 BLOODCX No growth at 5 days. No growth at 5 days. No growth at 4 days. No growth at 4 days. ECG: Recent Labs 09/04/17 2230 DIAGLINE Sinus tachycardia Nonspecific ST abnormality Abnormal ECG No previous ECGs available Confirmed by MD Scottie, Sally ([id number]) on 09/05/2017 3:49:31 PM QTCCALC 429 IMAGING: CXR 09/15/17: None new Assessment: 27 y/o man with pmhx history of??resection of pituitary tumor, intraoperative hemorrhage and??CVA, cognitive impairment, cortical blindness, partial L sided paralysis, seizure disorder, and panhypopituitarism (with DI, adrenal insufficiency, hypothyroidism, hypogonadism) here with a left acetabular fracture that occurred in the setting of a possible seizure. ?? He is now s/p operative repair on 09/04 with post operative course c/b issues with sodium and fluid homeostasis which has stabilized with re-initiation of his home regimen of DDAVP. His hemoglobin has stabilized with decreased lab draws and it is likely the source of his anemia was iatrogenic. His sodium continues to fluctuate with his fluid intake, and patient will need to be prompted to drink up to his 3L restriction as his thirst drive is impaired. He is medically stable for discharge. ?? Plan: # Panhypopituitarism # Acute Hyponatremia - DI: Sodium mildly elevated today in setting of poor PO intake. Continue DDAVP every 8 hours. Continue 3 L fluid restriction. Encourage drinking up to that 3L restriction. Recheck sodium in AM. If stable. Stop trending labs. - Adrenal insufficiency - Continue home hydrocortisone (20mg at 0700, 10mg at 1200 and 1900) - Hypothyroidism - TFT's at goal - continue levothyroxine 150 mcg - Hypogonadism - will continue androgel supplementation outpatient - Appreciate Endocrine input on all of the above ?? # Acetabular fracture - S/p operative repair 09/04 - Continue pain control with scheduled tylenol and prn po dilaudid - Continue DVT ppx with lovenox - PT/OT -- NWB LLE, OK for stand pivot transfer from wheelchair per Ortho - Plan to remove carisa today ? # Anemia, suspected due to iatrogenic cause - Responded appropriately to 1U PRBC on 09/16 - Will continue to monitor for changes in symptoms - Minimizing blood draws otherwise where able ?? # Seizure d/o with breakthrough seizure after no seizures for 4 years: Stable. - S/p Zonesamide load of 400mg, now 200mg QHS per Neuro # Decreased bone mineral density - Ca/ Vit D recommended # Sinus Tach - Baseline, intermittent - Likely partly??due to autonomic instability related to hx of [employer] insults described above?? IV access: none Tubes/Drains: none DVT PPX: Lovenox 40mg QHS Anticipated Disposition: Medically stable for discharge. No rehab acceptances as of yet. His current nursing home is unable to find first floor room for him. CM working with [facility] for further options. Goals of Care: Full code Team Pager(MD Coverage 27/01): [phone] PCP: NAKIA Cifuentes [phone] Delgado Jeffrey MD 09/19/2017 Staff Addendum: ?? I have seen the patient and reviewed 's history and I agree with the details as written. I have personally reviewed and interpreted vital signs, lab and imaging studies. The assessment and plan were formulated in discussion with me and I agree with them as documented. ?? PCP NAKIA Cifuentes Attestation IPI Certification I certify that I am a D-H credentialed attending provider with admitting privileges and that the patient meets or has met medical necessity to require an inpatient IPI level of care meeting a minimumof two midnights or is on the CMS inpatient only procedure list (status C) due to: Has met IPI and is now pending placement ?? REBA LINTON MD * Minerva Boyce RN - 09/18/2017 5:30 PM EDT Office of Care Management(OCM)/Newscast Producer(CM)/Discharge Planning Service: LUCAS BoyceRN,BSN,MA,[facility] pgr [phone] 09/17: Called Guardian and spoke with her about d/c planning and that facilities had declined her brother. She agrees he is getting bored, frustrated in hospital environment and would be bestserved to be in his own nursing home getting home PT/OT. Clinical update given and she asks that teamcall her with clinical decisions and updates and can reach her at her work phone if is after 2P. Today- left message with Subha Razo who is the RN overseeing nursing home. RNLUCAS Kelsey has spoken with her before encouraging accommodation for pt at home. Left message that he has not been accepted for SNF level rehab and want to work out home arrangement. Guardian work # added to Treatment team sticky note and conctacts list. Hospitalist to call her later today or tomorrow. * Reba Linton MD - 09/18/2017 7:47 AM EDT Hospital Medicine Daily Progress Note Admit Date: 09/02/2017 Hospital Day 16 days Active Hospital Problems Diagnosis ??? S/P ORIF left acetabulum fracture 09/04/2017 Dr. Lance ??? Postoperative anemia due to acute blood loss ??? Diabetes insipidus ??? Adrenal insufficiency ??? Panhypopituitarism ??? Seizure disorder ??? Hypothyroidism Resolved Hospital Problems Diagnosis Date Resolved No resolved problems to display. PMH Active Non-Hospital Problems Diagnosis ??? Insomnia ??? Blind ??? CVA (cerebral vascular accident) ??? Urinary incontinence Inpatient Medications: Scheduled ??? methyl salicylate-menthol Topical (Top) BID ??? desmopressin 0.05 mg Oral Q8H ??? calcium carbonate 500 mg Oral BID ??? cholecalciferol (Vitamin D3) 1,000 Units Oral Daily ??? hydrocortisone 20 mg Oral QAM ??? hydrocortisone 10 mg Oral Daily at Noon ??? hydrocortisone 10 mg Oral Q24H ??? enoxaparin 40 mg Subcutaneous Nightly ??? levothyroxine 150 mcg Oral QAM ??? melatonin 3 mg Oral Nightly ??? pantoprazole 40 mg Oral QAM AC ??? QUEtiapine 250 mg Oral Nightly ??? traZODone 50 mg Oral Nightly ??? sodium chloride 0.9 % 5 mL Intravenous BID ??? zonisamide 200 mg Oral Nightly Continuous infusions: PRN: HYDROmorphone, haloperidol, LORazepam, polyethylene glycol (MIRALAX)oral powder, senna-docusate, sodium chloride 0.9 %, lidocaine, naphazoline-pheniramine ID: 27 y/o man with pmhx history of??resection of pituitary tumor, intraoperative hemorrhage and??CVA, cognitive impairment, cortical blindness, partial L sided paralysis, seizure disorder, and panhypopituitarism (with DI, adrenal insufficiency, hypothyroidism, hypogonadism) here with a left acetabular fracture that occurred in the setting of a possible seizure. Interval History: - Remained afebrile - Responded appropriately to 1U PRBC with no evidence of bleeding - Sodium stable on home regimen - Mild erythema around incision site, although no fluctuance or drainage Review of Systems: Unable to obtain full review of systems due to patient's mental status Physical Exam Vitals Range last 24 hrs Temperature Temp: [35.6 ??C (96.1 ??F)-37.2 ??C (99 ??F)] Heart Rate Heart Rate: [84] Blood Pressure BP: (115-126)/(68-83) Respiratory Rate Resp: [22] SpO2 SpO2: [98 %] Intake/Output Summary (Last 24 hours) at 09/18/17 0747 Last data filed at 09/17/17 1700 Gross per 24 hour Intake 1650 ml Output 0 ml Net 1650 ml No data found. There is no height or weight on file to calculate BMI. Gen: NAD, lying in bed, able to respond to questions with one word answers at baseline HEENT: Oropharynx clear, moist mucus membranes CV: Normal rate, regular rhythm, no murmurs/rubs/gallups auscultated Pulm: Normal respiratory effort, speaking normally, clear to auscultation bilaterally, normal expiratory phase, mild upper airway wheezes with no crackles Abd: Non-distended, normal bowel sounds in all 4 quadrants, soft, non-tender, area around carisa is mildly pink, no fluctuance or purulence at incision site Ext: No pedal edema, 2+ radial/DP pulses Skin: Warm, dry, no rashes LABS: Last 3 wbc, hgb, hct plt Recent Labs 09/18/17 0546 09/17/17 0628 09/16/17 0507 WBC 6.6 6.8 7.4 HGB 8.2* 8.1* 6.8* HCT 26.2* 26.0* 21.8* PLATELET 580* 497* 366* Last 3 Lytes Recent Labs 09/18/17 0546 09/17/17 1249 09/16/17 0507 09/14/17 1409 09/11/17 0347 09/06/17 0833 NA 144 136 141 < > 145 145 < > 128* < > 146* 146* K -- -- -- -- 3.6 -- 3.5 -- 3.7 CL -- -- -- -- 104 -- 91* -- 111* CO2 -- -- -- -- 27 -- 24 -- 26 BUN -- -- -- -- 16 -- 14 -- 18 CREATININE -- -- -- -- 0.92 -- 0.63* -- 0.79* < > = values in this interval not displayed. FSBG Trend No results for input(s): POCGLU in the last 72 hours. MICRO: No results for input(s): URINECULTURE in the last 720 hours. No results for input(s): GRAMSTAIN, BFCX, LOWERRESPCX, TISSUECX in the last 720 hours. Recent Labs 09/03/17 1756 09/03/17 1847 09/14/17 2051 BLOODCX No growth at 5 days. No growth at 5 days. No growth at 3 days. No growth at 3 days. ECG: Recent Labs 09/04/17 2230 DIAGLINE Sinus tachycardia Nonspecific ST abnormality Abnormal ECG No previous ECGs available Confirmed by MD Scottie, Sally ([id number]) on 09/05/2017 3:49:31 PM QTCCALC 429 IMAGING: CXR 09/15/17: No acute abnormalities Assessment: 27 y/o man with pmhx history of??resection of pituitary tumor, intraoperative hemorrhage and??CVA, cognitive impairment, cortical blindness, partial L sided paralysis, seizure disorder, and panhypopituitarism (with DI, adrenal insufficiency, hypothyroidism, hypogonadism) here with a left acetabular fracture that occurred in the setting of a possible seizure. ?? He is now s/p operative repair on 09/04 with post operative course c/b issues with sodium and fluid homeostasis which has stabilized with re-initiation of his home regimen of DDAVP. He has had an issuewith slowly decreasing hemoglobin which is likely iatrogenic vs slow bleed at surgical site. Discussed with orthopedics who have low suspicion for surgical site bleed. He has responded appropriately to 1U PRBC, with a stable blood count the following day. Favor Iatrogenic anemia at this time, but will continue to monitor for changes in symptoms. He is now medically stable for discharge. ?? Plan: # Panhypopituitarism # Acute Hyponatremia - DI: Sodium stable. Continue DDAVP every 8 hours. Continue 3 L fluid restriction. - Adrenal insufficiency - Continue home hydrocortisone (20mg at 0700, 10mg at 1200 and 1900) - Hypothyroidism - TFT's at goal - continue levothyroxine 150 mcg - Hypogonadism - will continue androgel supplementation outpatient - Appreciate Endocrine input on all of the above ?? # Acetabular fracture - S/p operative repair 09/04 - Continue pain control with scheduled tylenol and prn po dilaudid - Continue DVT ppx with lovenox - PT/OT -- NWB LLE, OK for stand pivot transfer from wheelchair per Ortho ? # Anemia, suspected due to iatrogenic cause - Responded appropriately to 1U PRBC on 09/16 - Will continue to monitor for changes in symptoms - Minimizing blood draws otherwise where able ?? # Seizure d/o with breakthrough seizure after no seizures for 4 years: Stable. - S/p Zonesamide load of 400mg, now 200mg QHS per Neuro - Metabolic, endocrine, infectious w/u unrevealing thus far (cxr clear, u/a negative, Bcx's NGTD, flu test negative) other than sodium fluctuations which are being managed as above - Appreciate Neuro input ? # Decreased bone mineral density - Ca/ Vit D recommended # Sinus Tach - Baseline, intermittent - Likely partly??due to autonomic instability related to hx of [employer] insults described above?? IV access: none Tubes/Drains: none DVT PPX: Lovenox 40mg QHS Anticipated Disposition: Medically stable for discharge, pending placement Goals of Care: Full code Team Pager(MD Coverage 27/01): [phone] PCP: NAKIA Cifuentes [phone] Deglado Jeffrey MD 09/18/2017 Staff Addendum: I have seen the patient and reviewed 's history and I agree with the details as written. I have personally reviewed and interpreted vital signs, lab and imaging studies. The assessment and plan were formulated in discussion with me and I agree with them as documented. PCP NAKIA Cifuentes Attestation IPI Certification I certify that I am a D-H credentialed attending provider with admitting privileges and that the patient meets or has met medical necessity to require an inpatient IPI level of care meeting a minimumof two midnights or is on the [facility] inpatient only procedure list (status C) due to: Has met IPI and is now pending placement REBA LINTON MD * Reba Linton MD - 09/17/2017 4:41 PM EDT Hospital Medicine Daily Progress Note Admit Date: 09/02/2017 Hospital Day 15 days Active Hospital Problems Diagnosis ??? S/P ORIF left acetabulum fracture 09/04/2017 Dr. Lance ??? Postoperative anemia due to acute blood loss ??? Diabetes insipidus ??? Adrenal insufficiency ??? Panhypopituitarism ??? Seizure disorder ??? Hypothyroidism Resolved Hospital Problems Diagnosis Date Resolved No resolved problems to display. PMH Active Non-Hospital Problems Diagnosis ??? Insomnia ??? Blind ??? CVA (cerebral vascular accident) ??? Urinary incontinence Inpatient Medications: Scheduled ??? methyl salicylate-menthol Topical (Top) BID ??? desmopressin 0.05 mg Oral Q8H ??? calcium carbonate 500 mg Oral BID ??? cholecalciferol (Vitamin D3) 1,000 Units Oral Daily ??? hydrocortisone 20 mg Oral QAM ??? hydrocortisone 10 mg Oral Daily at Noon ??? hydrocortisone 10 mg Oral Q24H ??? enoxaparin 40 mg Subcutaneous Nightly ??? levothyroxine 150 mcg Oral QAM ??? melatonin 3 mg Oral Nightly ??? pantoprazole 40 mg Oral QAM AC ??? QUEtiapine 250 mg Oral Nightly ??? traZODone 50 mg Oral Nightly ??? sodium chloride 0.9 % 5 mL Intravenous BID ??? zonisamide 200 mg Oral Nightly Continuous infusions: PRN: HYDROmorphone, haloperidol, LORazepam, polyethylene glycol (MIRALAX)oral powder, senna-docusate, sodium chloride 0.9 %, lidocaine, naphazoline-pheniramine ID: 27 y/o man with pmhx history of??resection of pituitary tumor, intraoperative hemorrhage and??CVA, cognitive impairment, cortical blindness, partial L sided paralysis, seizure disorder, and panhypopituitarism (with DI, adrenal insufficiency, hypothyroidism, hypogonadism) here with a left acetabular fracture that occurred in the setting of a possible seizure. Interval History: - Remained afebrile - Responded appropriately to 1U PRBC with no evidence of bleeding - Sodium stable on home regimen - Mild erythema around incision site, although no fluctuance or drainage Review of Systems: Unable to obtain full review of systems due to patient's mental status Physical Exam Vitals Range last 24 hrs Temperature Temp: [35.6 ??C (96.1 ??F)-36.5 ??C (97.7 ??F)] Heart Rate Heart Rate: [82-84] Blood Pressure BP: (115-129)/(68-78) Respiratory Rate Resp: [20-22] SpO2 SpO2: [98 %] Intake/Output Summary (Last 24 hours) at 09/17/17 1641 Last data filed at 09/17/17 1350 Gross per 24 hour Intake 956 ml Output 0 ml Net 956 ml No data found. There is no height or weight on file to calculate BMI. Gen: NAD, lying in bed, able to respond to questions with one word answers at baseline HEENT: Oropharynx clear, moist mucus membranes CV: Normal rate, regular rhythm, 2/6 systolic murmur that doesn't radiate to the carotids with no rubs/gallops Pulm: Normal respiratory effort, speaking normally, clear to auscultation bilaterally, normal expiratory phase, mild upper airway wheezes with no crackles Abd: Non-distended, normal bowel sounds in all 4 quadrants, soft, non-tender, area around carisa is mildly pink, no fluctuance or purulence at incision site Ext: No pedal edema, 2+ radial/DP pulses Skin: Warm, dry, no rashes LABS: Last 3 wbc, hgb, hct plt Recent Labs 09/17/17 0628 09/16/17 0507 09/15/17 1348 WBC 6.8 7.4 8.1 HGB 8.1* 6.8* 7.4* HCT 26.0* 21.8* 24.2* PLATELET 497* 366* 399* Last 3 Lytes Recent Labs 09/17/17 1249 09/16/17 0507 09/15/17 1348 09/14/17 1409 09/11/17 0347 09/06/17 0833 NA 136 141 137 < > 145 145 < > 128* < > 146* 146* K -- -- -- -- 3.6 -- 3.5 -- 3.7 CL -- -- -- -- 104 -- 91* -- 111* CO2 -- -- -- -- 27 -- 24 -- 26 BUN -- -- -- -- 16 -- 14 -- 18 CREATININE -- -- -- -- 0.92 -- 0.63* -- 0.79* < > = values in this interval not displayed. FSBG Trend No results for input(s): POCGLU in the last 72 hours. MICRO: No results for input(s): URINECULTURE in the last 720 hours. No results for input(s): GRAMSTAIN, BFCX, LOWERRESPCX, TISSUECX in the last 720 hours. Recent Labs 09/03/17 1756 09/03/17 1847 09/14/17 2051 BLOODCX No growth at 5 days. No growth at 5 days. No growth at 2 days. No growth at 2 days. ECG: Recent Labs 09/04/17 2230 DIAGLINE Sinus tachycardia Nonspecific ST abnormality Abnormal ECG No previous ECGs available Confirmed by MD Scottie, Sally ([id number]) on 09/05/2017 3:49:31 PM QTCCALC 429 IMAGING: CXR 09/15/17: No acute abnormalities Assessment: 27 y/o man with pmhx history of??resection of pituitary tumor, intraoperative hemorrhage and??CVA, cognitive impairment, cortical blindness, partial L sided paralysis, seizure disorder, and panhypopituitarism (with DI, adrenal insufficiency, hypothyroidism, hypogonadism) here with a left acetabular fracture that occurred in the setting of a possible seizure. ?? He is now s/p operative repair on 09/04 with post operative course c/b issues with sodium and fluid homeostasis which has stabilized with re-initiation of his home regimen of DDAVP. He has had an issuewith slowly decreasing hemoglobin which is likely iatrogenic vs slow bleed at surgical site. Discussed with orthopedics who have low suspicion for surgical site bleed. He has responded appropriately to 1U PRBC. Will reduce phlebotomy draws and plan for daily labs only. He is now medically stable for discharge. ?? Plan: # Panhypopituitarism # Acute Hyponatremia - DI: Sodium stable. Continue DDAVP every 8 hours. Trending sodium daily. Continue 3 L fluid restriction. - Adrenal insufficiency - Continue home hydrocortisone (20mg at 0700, 10mg at 1200 and 1900) - Hypothyroidism - TFT's at goal - continue levothyroxine 150 mcg - Hypogonadism - will continue androgel supplementation outpatient - Appreciate Endocrine input on all of the above ?? # Fever, unclear etiology - resolved - Now afebrile > 24 hours - No leukocytosis, surgical site appears non-infected, UA bland - Blood cultures with no growth to date - If fever returns or patient worsens, may need imaging of the left hip # Acetabular fracture - S/p operative repair 09/04 - Continue pain control with scheduled tylenol and prn po dilaudid - Continue DVT ppx with lovenox - PT/OT -- NWB LLE, OK for stand pivot transfer from wheelchair per Ortho ? # Anemia, iatrogenic vs surgical site bleed - worsening - Responded appropriately to 1U PRBC on 09/16 - Stop draws when hemoglobin stable - Minimizing blood draws otherwise where able ?? # Seizure d/o with breakthrough seizure after no seizures for 4 years: Stable. - S/p Zonesamide load of 400mg, now 200mg QHS per Neuro - Metabolic, endocrine, infectious w/u unrevealing thus far (cxr clear, u/a negative, Bcx's NGTD, flu test negative) other than sodium fluctuations which are being managed as above - Appreciate Neuro input ? # Decreased bone mineral density - Ca/ Vit D recommended # Sinus Tach - Baseline, intermittent - Likely partly??due to autonomic instability related to hx of [employer] insults described above?? IV access: none Tubes/Drains: none DVT PPX: Lovenox 40mg QHS Anticipated Disposition: Medically stable for discharge, pending placement Goals of Care: Full code Team Pager(MD Coverage 27/01): [phone] PCP: NAKIA Cifuentes [phone] REBA LINTON MD 09/17/2017 * Debbie Keller DT - 09/17/2017 3:02 PM EDT Nutrition Services - Follow-up Note Miguel Angel Kim Isabella : 1990 AGE: 27 y.o. Patient Active Problem List Diagnosis Date Noted ??? *Hospital-S/P ORIF left acetabulum fracture 09/04/2017 Dr. Lance 09/02/2017 ??? Hospital-Postoperative anemia due to acute blood loss 09/04/2017 ??? Hospital-Diabetes insipidus 09/03/2017 ??? Hospital-Adrenal insufficiency 09/03/2017 ??? 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 Hospital-Seizure disorder 09/03/2017 ??? Insomnia 09/03/2017 ??? Blind 09/03/2017 ??? CVA (cerebral vascular accident) 09/03/2017 ??? Urinary incontinence 09/03/2017 ??? Hospital-Hypothyroidism 09/03/2017 Reason for Nutrition Intervention: Follow-up Diet Order: Regular Appetite: Good- per visitor Food allergies: NKFA Chewing/Swallowing difficulty: none noted- per visitor Ht Readings from Last 3 Encounters: 09/07/17 177.8 cm (5' 10) Wt Readings from Last 3 Encounters: 09/04/17 86.6 kg (191 lb) There is no height or weight on file to calculate BMI. Vitamins/Minerals: Vitamin D3, Tums noted. Assessment: Patient seen for nutrition follow up. Land Agent able to speak with visitor on pt's nutritional care. Visitor reported a good appetite without difficulty chewing or swallowing. He is tolerating current diet without nausea or vomiting. Visitor stated pt consumed 100% PO intake of breakfast today. Nursing notes documenting 100% PO intakes on 09/14-09/16. Family/ visitor or nursing calling in meal choices daily. Visitor had already called in lunch choices for today. Please contact Food and Nutrition services with any questions/ requests that may arise. Nutrition will continue to follow. Nutrition Plan: Continue current diet. Send menu daily. Recommend Daily Multi Vitamins. Encourage good po intake. Monitor weight. Support and encouragement provided. Nutrition services to follow weekly thru hospital course unless consulted in the interim. ADAM Kaur * Desean De Oliveira W - 09/17/2017 6:11 AM EDT Orthopaedic Surgery Progress Note Surgery/Issue: ORIF left acetabulum Attending: Dr. Lance Date of surgery: 09/04/2017 Subjective/Events: Miguel Angel is doing well today. He is much more comfortable. He rested overnight. He has been afebrile. Transfused 1unit prbc yesterday, appropriate response, today Hb 8.1. Objcetive: Temp: [35.5 ??C (95.9 ??F)-36.6 ??C (97.9 ??F)] Heart Rate: [82-88] Resp: [20-22] BP: (111-129)/(67-78) No intake or output data in the 24 hours ending 09/17/17 0612 Lab Results Component Value Date NA 141 09/16/2017 K 3.6 09/14/2017 CL 104 09/14/2017 CO2 27 09/14/2017 BUN 16 09/14/2017 CREATININE 0.92 09/14/2017 GLUCOSE 73 09/14/2017 CALCIUM 8.6 09/14/2017 Lab Results Component Value Date WBC 7.4 09/16/2017 HGB 6.8 (L) 09/16/2017 HCT 21.8 (L) 09/16/2017 MCV 84.5 09/16/2017 PLATELET 366 (H) 09/16/2017 Lab Results Component Value Date INR 1.1 09/03/2017 Exam: General: agitated, uncomortable CV: RRR Resp: no increased work of breathing LLE: Anterior pelvic and left lower abdominal incisions and carisa c/d/i. Minor erythema around the pfannenstiel incision unchanged from prior exam, no erythema over left lower one. No drainage Abdomen soft, non tender, no ecchymoses Unable to assess motor/sensory He moves all 4 extremities spontaneously with good strength, wiggles toes Palpable DP/PT Radiology: XR Pelvis 09/10/17 Anatomic reduction of pelvis with hardware in position. A/P: 27 y.o. male s/p ORIF left acetabular fx. Progressing well post operatively. Further care per medicine, plan to work with PT/OT. Activity: NWB LLE, OK for stand pivot transfer on right leg only DVT prophylaxis: lovenox Closure: [place] to be removed ~09/19 Dressings: may leave open to air now Future Appointments Date Time Provider Department Center 09/19/2017 2:15 PM [facility] DX ROOM 1 [facility] 09/19/2017 3:10 PM Amy Lance MD [facility] Associated attestation - Amy Lance MD - 09/17/2017 12:29 PM EDT Patient seen and examined. Agree with resident note. Mandy Lance MD Department of Orthopaedics 09/17/17 * Agnieszka Mendiola, PT - 09/16/2017 2:25 PM EDT Physical Therapy Contact Note Pt services continue to follow - pt not appropriate for participation in PT tx session upon arrivalthis afternoon secondary to low Hgb - receiving blood and pt agitated at this time per HEATHER Wells's report. Will continue to follow and will re-attempt tomorrow when appropriate. Please page this scientific writer if you have any questions, thank you. Agnieszka Mendiola, PT Pager #[phone] Physical Therapy Inpatient Rehabilitation * Ren Walters OTA - 09/16/2017 1:04 PM EDT Attempted to see pt this morning, pt working with other staff and notably agitated. Will attempt again at a more appropriate time. Ren MAYA Pager:[phone] * Reba Linton MD - 09/16/2017 8:34 AM EDT [facility] Medicine Daily Progress Note Admit Date: 09/02/2017 Hospital Day 14 days Active Hospital Problems Diagnosis ??? S/P ORIF left acetabulum fracture 09/04/2017 Dr. Lnace ??? Postoperative anemia due to acute blood loss ??? Diabetes insipidus ??? Adrenal insufficiency ??? Panhypopituitarism ??? Seizure disorder ??? Hypothyroidism Resolved Hospital Problems Diagnosis Date Resolved No resolved problems to display. PMH Active Non-Hospital Problems Diagnosis ??? Insomnia ??? Blind ??? CVA (cerebral vascular accident) ??? Urinary incontinence Inpatient Medications: Scheduled ??? methyl salicylate-menthol Topical (Top) BID ??? desmopressin 0.05 mg Oral Q8H ??? calcium carbonate 500 mg Oral BID ??? cholecalciferol (Vitamin D3) 1,000 Units Oral Daily ??? hydrocortisone 20 mg Oral QAM ??? hydrocortisone 10 mg Oral Daily at Noon ??? hydrocortisone 10 mg Oral Q24H ??? enoxaparin 40 mg Subcutaneous Nightly ??? levothyroxine 150 mcg Oral QAM ??? melatonin 3 mg Oral Nightly ??? pantoprazole 40 mg Oral QAM AC ??? QUEtiapine 250 mg Oral Nightly ??? traZODone 50 mg Oral Nightly ??? sodium chloride 0.9 % 5 mL Intravenous BID ??? zonisamide 200 mg Oral Nightly Continuous infusions: PRN: HYDROmorphone, haloperidol, LORazepam, polyethylene glycol (MIRALAX)oral powder, senna-docusate, sodium chloride 0.9 %, lidocaine, naphazoline-pheniramine ID: 27 y/o man with pmhx history of??resection of pituitary tumor, intraoperative hemorrhage and??CVA, cognitive impairment, cortical blindness, partial L sided paralysis, seizure disorder, and panhypopituitarism (with DI, adrenal insufficiency, hypothyroidism, hypogonadism) here with a left acetabular fracture that occurred in the setting of a possible seizure. Interval History: -Afebrile for last 24hrs -Hgb dropped below 7, transfusing one unit -Sodium stable on home regimen -Mild erythema around incision site, although no fluctuance or drainage Review of Systems: Unable to obtain full review of systems due to patient's mental status Physical Exam Vitals Range last 24 hrs Temperature Temp: [37 ??C (98.6 ??F)-37.5 ??C (99.5 ??F)] Heart Rate Heart Rate: -- Blood Pressure BP: (105-112)/(60-66) Respiratory Rate Resp: [16-20] SpO2 SpO2: [96 %-98 %] Intake/Output Summary (Last 24 hours) at 09/16/17 0834 Last data filed at 09/15/17 2200 Gross per 24 hour Intake 840 ml Output 0 ml Net 840 ml No data found. There is no height or weight on file to calculate BMI. Gen: NAD, lying in bed, able to respond to questions with one word answers at baseline HEENT: Oropharynx clear, moist mucus membranes CV: Tachycardic rate, regular rhythm, 2/6 systolic murmur that doesn't radiate to the carotids withno rubs/gallops Pulm: Normal respiratory effort, speaking normally, clear to auscultation bilaterally, normal expiratory phase, mild upper airway wheezes with no crackles Abd: Non-distended, normal bowel sounds in all 4 quadrants, soft, non-tender, area around carisa is mildly pink, no fluctuance or purulence at incision site Ext: No pedal edema, 2+ radial/DP pulses Skin: Warm, dry, no rashes LABS: Last 3 wbc, hgb, hct plt Recent Labs 09/16/17 0507 09/15/17 1348 09/10/17 0350 WBC 7.4 8.1 8.8 HGB 6.8* 7.4* 8.5* HCT 21.8* 24.2* 25.7* PLATELET 366* 399* 332 Last 3 Lytes Recent Labs 09/16/17 0507 09/15/17 1348 09/15/17 0607 09/14/17 1409 09/11/17 0347 09/06/17 0833 NA 141 137 141 < > 145 145 < > 128* < > 146* 146* K -- -- -- -- 3.6 -- 3.5 -- 3.7 CL -- -- -- -- 104 -- 91* -- 111* CO2 -- -- -- -- 27 -- 24 -- 26 BUN -- -- -- -- 16 -- 14 -- 18 CREATININE -- -- -- -- 0.92 -- 0.63* -- 0.79* < > = values in this interval not displayed. FSBG Trend No results for input(s): POCGLU in the last 72 hours. MICRO: No results for input(s): URINECULTURE in the last 720 hours. No results for input(s): GRAMSTAIN, BFCX, LOWERRESPCX, TISSUECX in the last 720 hours. Recent Labs 09/03/17 1756 09/03/17 1847 09/14/17 2051 BLOODCX No growth at 5 days. No growth at 5 days. No growth at 1 day. No growth at 1 day. ECG: Recent Labs 09/04/17 2230 DIAGLINE Sinus tachycardia Nonspecific ST abnormality Abnormal ECG No previous ECGs available Confirmed by MD Scottie, Sally ([id number]) on 09/05/2017 3:49:31 PM QTCCALC 429 IMAGING: CXR 09/15/17: No acute abnormalities Assessment: 27 y/o man with pmhx history of??resection of pituitary tumor, intraoperative hemorrhage and??CVA, cognitive impairment, cortical blindness, partial L sided paralysis, seizure disorder, and panhypopituitarism (with DI, adrenal insufficiency, hypothyroidism, hypogonadism) here with a left acetabular fracture that occurred in the setting of a possible seizure. ?? He is now s/p operative repair on 09/04 with post operative course c/b issues with sodium and fluid homeostasis which has improved with initiation of DDAVP. He is now stable on his home regimen from a pituitary standpoint. He has had an issue with slowly decreasing hemoglobin which is likely iatrogenic vs slow bleed at surgical site. Favor iatrogenic at this point given his frequent lab draws, although will discuss with orthopedics the potential for surgical site bleed. Will transfuse 1 unit and continue to monitor for now, although may need further imaging in the future. ?? Plan: # Panhypopituitarism # Acute Hyponatremia - DI: Sodium stable. Continue DDAVP every 8 hours. Trending sodium daily. Continue 3 L fluid restriction. - Adrenal insufficiency - Continue home hydrocortisone (20mg at 0700, 10mg at 1200 and 1900) - Hypothyroidism - TFT's at goal - continue levothyroxine 150 mcg - Hypogonadism - will continue androgel supplementation outpatient - Appreciate Endocrine input on all of the above ?? #Fever, unclear etiology - resolved -No leukocytosis, surgical site appears non-infected, UA bland -Discontinue Tylenol to assess fever curve -Follow up blood cultures -If fever returns or patient worsens, may need MRI left hip. # Acetabular fracture - S/p operative repair 09/04 - Continue pain control with scheduled tylenol and prn po dilaudid - Continue DVT ppx with lovenox - PT/OT -- NWB LLE, OK for stand pivot transfer from wheelchair per Ortho ? # Anemia, iatrogenic vs surgical site bleed - worsening - Type and screen - Transfuse 1U rbc today, recheck tomorrow - Consult orthopedics for potential eval for surgical site - Minimizing blood draws where able ?? # Seizure d/o with breakthrough seizure after no seizures for 4 years: Stable. - S/p Zonesamide load of 400mg, now 200mg QHS per Neuro - Metabolic, endocrine, infectious w/u unrevealing thus far (cxr clear, u/a negative, Bcx's NGTD, flu test negative) other than sodium fluctuations which are being managed as above - Appreciate Neuro input ? 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 IV access: none Tubes/Drains: none DVT PPX: Lovenox 40mg QHS Anticipated Disposition: pending workup of fever Goals of Care: Full code Team Pager(MD Coverage 27/01): [phone] PCP: NAKIA Cifuentes [phone] Delgado Jeffrey MD PGY-1, Internal Medicine 09/16/2017 Staff Addendum: ?? I have seen the patient and reviewed 's history and I agree with the details as written. I have personally reviewed and interpreted vital signs, lab and imaging studies. The assessment and plan were formulated in discussion with me and I agree with them as documented. ?? REBA LINTON MD * Desean De lOiveira W - 09/16/2017 6:00 AM EDT Orthopaedic Surgery Progress Note Surgery/Issue: ORIF left acetabulum Attending: Dr. Lance Date of surgery: 09/04/2017 Subjective/Events: Miguel Angel appears uncomfortable this morning. Moving all 4 extremities and yelling at time of exam. [place] over lower abdominal and left lower abdominal incisions intact. Awaiting potential rehab or specialty fci per care management notes. Hb is 6.8 today. Objcetive: Temp: [37 ??C (98.6 ??F)-37.5 ??C (99.5 ??F)] Resp: [16-20] BP: (105-112)/(60-66) Intake/Output Summary (Last 24 hours) at 09/16/17 0605 Last data filed at 09/15/17 2200 Gross per 24 hour Intake 1200 ml Output 0 ml Net 1200 ml Lab Results Component Value Date NA 141 09/16/2017 K 3.6 09/14/2017 CL 104 09/14/2017 CO2 27 09/14/2017 BUN 16 09/14/2017 CREATININE 0.92 09/14/2017 GLUCOSE 73 09/14/2017 CALCIUM 8.6 09/14/2017 Lab Results Component Value Date WBC 7.4 09/16/2017 HGB 6.8 (L) 09/16/2017 HCT 21.8 (L) 09/16/2017 MCV 84.5 09/16/2017 PLATELET 366 (H) 09/16/2017 Lab Results Component Value Date INR 1.1 09/03/2017 Exam: General: agitated, uncomortable CV: RRR Resp: no increased work of breathing LLE: Anterior pelvic and left lower abdominal incisions and carisa c/d/i. Minor erythema around the pfannenstiel incision, no erythema over left lower one. No drainage Unable to assess motor/sensory He moves all 4 extremities spontaneously with good strength, wiggles toes Palpable DP/PT Radiology: XR Pelvis 09/10/17 Anatomic reduction of pelvis with hardware in position. A/P: 27 y.o. male s/p ORIF left acetabular fx. Progressing well post operatively. Further care per medicine, plan to work with PT/OT. We will re- examine carisa at end of week for possible removal ifhe is still admitted. Activity: NWB LLE, OK for stand pivot transfer on right leg only DVT prophylaxis: lovenox Closure: Carisa to be removed 09/19 Dressings: may leave open to air now Future Appointments Date Time Provider Department Center 09/19/2017 2:15 PM [facility] DX ROOM 1 [facility]ray [facility] 09/19/2017 3:10 PM Amy Lance MD [facility] Associated attestation - Amy Lance MD - 09/16/2017 6:12 AM EDT Agree with resident note. Mandy Lance MD Department of Orthopaedics 09/16/17 * Chavez Kelsey RN - 09/15/2017 10:03 AM EDT OFFICE OF CARE MANAGEMENT CM call to Subha Garcia RN at nursing home. We discussed declines by facilities- awaiting [facility] response. We discussed if there are any other home that may be able to accommodate Miguel Angel physical needs at this time. We discussed supportive services such as VNA. Subha will discuss with [employer] supervisor in considering if miguel angel could be managed at home with VNA support. He would need accessible accomodation and subha explains they have total 5 homes. We discussed pt has sl fever over night and Not MR today. * Reba Linton MD - 09/15/2017 7:41 AM EDT Hospital Medicine Daily Progress Note Admit Date: 09/02/2017 Hospital Day 13 days Active Hospital Problems Diagnosis ??? S/P ORIF left acetabulum fracture 09/04/2017 Dr. Lance ??? Postoperative anemia due to acute blood loss ??? Diabetes insipidus ??? Adrenal insufficiency ??? Panhypopituitarism ??? Seizure disorder ??? Hypothyroidism Resolved Hospital Problems Diagnosis Date Resolved No resolved problems to display. PMH Active Non-Hospital Problems Diagnosis ??? Insomnia ??? Blind ??? CVA (cerebral vascular accident) ??? Urinary incontinence Inpatient Medications: Scheduled ??? acetaminophen 1,000 mg Oral Q8H CIRO ??? methyl salicylate-menthol Topical (Top) BID ??? desmopressin 0.05 mg Oral Q8H ??? calcium carbonate 500 mg Oral BID ??? cholecalciferol (Vitamin D3) 1,000 Units Oral Daily ??? hydrocortisone 20 mg Oral QAM ??? hydrocortisone 10 mg Oral Daily at Noon ??? hydrocortisone 10 mg Oral Q24H ??? enoxaparin 40 mg Subcutaneous Nightly ??? levothyroxine 150 mcg Oral QAM ??? melatonin 3 mg Oral Nightly ??? pantoprazole 40 mg Oral QAM AC ??? QUEtiapine 250 mg Oral Nightly ??? traZODone 50 mg Oral Nightly ??? sodium chloride 0.9 % 5 mL Intravenous BID ??? zonisamide 200 mg Oral Nightly Continuous infusions: PRN: HYDROmorphone, haloperidol, LORazepam, meTOPROLOL, polyethylene glycol (MIRALAX)oral powder, senna-docusate, sodium chloride 0.9 %, lidocaine, naphazoline-pheniramine ID: 27 y/o man with pmhx history of??resection of pituitary tumor, intraoperative hemorrhage and??CVA, cognitive impairment, cortical blindness, partial L sided paralysis, seizure disorder, and panhypopituitarism (with DI, adrenal insufficiency, hypothyroidism, hypogonadism) here with a left acetabular fracture that occurred in the setting of a possible seizure. Interval History: -Febrile to 102.0 overnight. Blood Cx, urine cx, cxr performed. B Cx pending, urine and cxr unremarkable -Sodium stable on home regimen Review of Systems: Unable to obtain full review of systems due to patient's mental status Physical Exam Vitals Range last 24 hrs Temperature Temp: [36.5 ??C (97.7 ??F)-38.9 ??C (102 ??F)] Heart Rate Heart Rate: -- Blood Pressure BP: (135-147)/(75-85) Respiratory Rate Resp: [18-20] SpO2 SpO2: [97 %] Intake/Output Summary (Last 24 hours) at 09/15/17 0741 Last data filed at 09/15/17 0600 Gross per 24 hour Intake 2070 ml Output 250 ml Net 1820 ml No data found. There is no height or weight on file to calculate BMI. Gen: NAD, lying in bed, able to respond to questions with one word answers at baseline HEENT: Oropharynx clear, moist mucus membranes CV: Tachycardic rate, regular rhythm, 2/6 systolic murmur that doesn't radiate to the carotids withno rubs/gallops Pulm: Normal respiratory effort, speaking normally, clear to auscultation bilaterally, normal expiratory phase, mild upper airway wheezes with no crackles Abd: Non-distended, normal bowel sounds in all 4 quadrants, soft, non-tender, carisa are non-erythematous, no fluctuance or purulence at incision site Ext: No pedal edema, 2+ radial/DP pulses Skin: Warm, dry, no rashes LABS: Last 3 wbc, hgb, hct plt Recent Labs 09/10/17 0350 09/09/17 0321 09/08/17 0334 WBC 8.8 7.8 6.3 HGB 8.5* 7.7* 7.2* HCT 25.7* 23.7* 21.8* PLATELET 332 245 206 Last 3 Lytes Recent Labs 09/15/17 0607 09/14/17 2216 09/14/17 1409 09/11/17 0347 09/06/17 0833 NA 141 142 145 145 < > 128* < > 146* 146* K -- -- 3.6 -- 3.5 -- 3.7 CL -- -- 104 -- 91* -- 111* CO2 -- -- 27 -- 24 -- 26 BUN -- -- 16 -- 14 -- 18 CREATININE -- -- 0.92 -- 0.63* -- 0.79* < > = values in this interval not displayed. FSBG Trend No results for input(s): POCGLU in the last 72 hours. MICRO: No results for input(s): URINECULTURE in the last 720 hours. No results for input(s): GRAMSTAIN, BFCX, LOWERRESPCX, TISSUECX in the last 720 hours. Recent Labs 09/03/17 1756 09/03/17 1847 BLOODCX No growth at 5 days. No growth at 5 days. ECG: Recent Labs 09/04/17 2230 DIAGLINE Sinus tachycardia Nonspecific ST abnormality Abnormal ECG No previous ECGs available Confirmed by MD Scottie, Sally ([id number]) on 09/05/2017 3:49:31 PM QTCCALC 429 VASCULAR: No results for input(s): VBTEXTRPT in the last 720 hours. IMAGING: CXR 09/15/17: No acute abnormalities Assessment: 27 y/o man with pmhx history of??resection of pituitary tumor, intraoperative hemorrhage and??CVA, cognitive impairment, cortical blindness, partial L sided paralysis, seizure disorder, and panhypopituitarism (with DI, adrenal insufficiency, hypothyroidism, hypogonadism) here with a left acetabular fracture that occurred in the setting of a possible seizure. ?? He is now s/p operative repair on 09/04 with post operative course c/b issues with sodium and fluid homeostasis which has improved with initiation of DDAVP. He is now stable on his home regimen from a pituitary standpoint. His fever to 102 last night is concerning for potential infection, and an infectious workup is underway. Given his recent procedure, a hip infection is possible, although there are no clear sites from his incisions that appear infected. He would likely need sedation for an MRI for further workup. For now, as patient appears to be at his baseline, will discontinue tylenol to see if an infection declares itself, check a cbc, and follow blood cultures. ?? Plan: # Panhypopituitarism # Acute Hyponatremia - DI: Sodium stable. Continue DDAVP every 8 hours. Trending sodium daily. Continue 3 L fluid restriction. - Adrenal insufficiency - Continue home hydrocortisone (20mg at 0700, 10mg at 1200 and 1900) - Hypothyroidism - TFT's at goal - continue levothyroxine 150 mcg - Hypogonadism - will continue androgel supplementation outpatient - Appreciate Endocrine input on all of the above ?? #Fever, unclear etiology -No leukocytosis, surgical site appears non-infected, UA bland -Discontinue Tylenol to assess fever curve -Follow up blood cultures -If fever returns or patient worsens, may need MRI left hip. # Acetabular fracture - S/p operative repair 09/04 - Continue pain control with scheduled tylenol and prn po dilaudid - Continue DVT ppx with lovenox - PT/OT -- NWB LLE, OK for stand pivot transfer from wheelchair per Ortho ? # Acute blood loss anemia - Improved - Minimizing blood draws where able ?? # Seizure d/o with breakthrough seizure after no seizures for 4 years: Stable. - S/p Zonesamide load of 400mg, now 200mg QHS per Neuro - Metabolic, endocrine, infectious w/u unrevealing thus far (cxr clear, u/a negative, Bcx's NGTD, flu test negative) other than sodium fluctuations which are being managed as above - Appreciate Neuro input ? 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 IV access: none Tubes/Drains: none DVT PPX: Lovenox 40mg QHS Anticipated Disposition: pending workup of fever Goals of Care: Full code Team Pager( Coverage 27/01): #[phone] PCP: NAKIA Cifuentes [phone] Delgado Jeffrey MD PGY-1, Internal Medicine 09/15/2017 Staff Addendum: I have seen the patient and reviewed 's history and I agree with the details as written. I have personally reviewed and interpreted vital signs, lab and imaging studies. The assessment and plan were formulated in discussion with me and I agree with them as documented. REBA LINTON MD * Lindsey Walsh, DO - 09/14/2017 1:17 PM EDT Images from the original note were not included. 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 Endocrinology team was asked to address his panhypopituitarism. Patient sodium has been stable since restarting his home regimen of DDAVP TID and a 3L fluid restriction. Past Surgical History: Procedure Laterality Date ??? PRO OPEN CROSSCUTTER ROLLED GLASS FIX ACETABULAR FX Left 09/04/2017 @OPEN TREATMENT, ACETABULAR FX (WRVU 25.41) performed by Amy Lance MD at [facility] MAIN OR Allergies Allergen Reactions ??? Lopid [Gemfibrozil] Current Medications: Scheduled Meds: ??? acetaminophen 1,000 mg Oral Q8H CIRO ??? methyl salicylate-menthol Topical (Top) BID ??? desmopressin 0.05 mg Oral Q8H ??? calcium carbonate 500 mg Oral BID ??? cholecalciferol (Vitamin D3) 1,000 Units Oral Daily ??? hydrocortisone 20 mg Oral QAM ??? hydrocortisone 10 mg Oral Daily at Noon ??? hydrocortisone 10 mg Oral Q24H ??? enoxaparin 40 mg Subcutaneous Nightly ??? levothyroxine 150 mcg Oral QAM ??? melatonin 3 mg Oral Nightly ??? pantoprazole 40 mg Oral QAM AC ??? QUEtiapine 250 mg Oral Nightly ??? traZODone 50 mg Oral Nightly ??? sodium chloride 0.9 % 5 mL Intravenous BID ??? 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 Plan: --- Home DDAVP regimen working well at this point. Would like to continue this DDAVP 0.05 mg TID with 3L fluid restriction. Okay to space out sodium checks to every 8 hours. Would recommend monitoring urine output if at all possible for more accurate DI surveillance. ---Continue Levothyroxine 150 mcg daily --- Continue Hydrocortisone 20/10/10 mg daily Thank you for allowing us participate in the care of this patient. Patient was discussed with the attending provider, Dr. Hess. Lindsey Walsh DO Endocrinology, Diabetes and Metabolism Fellow 09/14/2017 1:17 PM * Reba Linton MD - 09/14/2017 10:42 AM EDT Hospital Medicine Attending Daily Progress Note Admit Date: 09/02/2017 Hospital Day 12 days Active Hospital Problems Diagnosis ??? S/P ORIF left acetabulum fracture 09/04/2017 Dr. Lance ??? Postoperative anemia due to acute blood loss ??? Diabetes insipidus ??? Adrenal insufficiency ??? Panhypopituitarism ??? Seizure disorder ??? Hypothyroidism Resolved Hospital Problems Diagnosis Date Resolved No resolved problems to display. Interval History: - Agitated overnight. Screaming while holding left hip. Medicated with an additional dose of dilaudid with relief to his symptoms. - Sodium remained stable overnight. No additional DDAVP given. - Gives me a thumbs up this morning when asked how he is feeling. - Unable to complete adequate ROS given baseline mentation Physical Exam Vitals Range last 24 hrs Temperature Temp: [37.3 ??C (99.1 ??F)-37.6 ??C (99.7 ??F)] Heart Rate Heart Rate: [129] Blood Pressure BP: (91-142)/(78-92) Respiratory Rate Resp: [20] SpO2 SpO2: [95 %-96 %] Intake/Output Summary (Last 24 hours) at 09/14/17 1042 Last data filed at 09/14/17 0926 Gross per 24 hour Intake 2040 ml Output 0 ml Net 2040 ml No data found. Gen: Appears to be in moderate painful distress, rolling around in bed and crying out, able to respond to questions with one word answers at baseline HEENT: Oropharynx clear, moist mucus membranes, +blindness CV: Tachycardic rate, regular rhythm, 2/6 systolic murmur that doesn't radiate to the carotids withno rubs/gallops Pulm: Normal respiratory effort, speaking normally, clear to auscultation bilaterally, normal expiratory phase, mild upper airway wheezes with no crackles Abd: Non-distended, normal bowel sounds in all 4 quadrants, soft, non-tender, no masses, no guarding, no hepatosplenomegaly, lower abdominal incision healing well and non-erythematous Ext: No pedal edema, 2+ radial/DP pulses, +muscle spasm left gastrocnemius Skin: Warm, dry, no rashes LABS: Last 3 wbc, hgb, hct plt Recent Labs 09/10/17 0350 09/09/17 0321 09/08/17 0334 WBC 8.8 7.8 6.3 HGB 8.5* 7.7* 7.2* HCT 25.7* 23.7* 21.8* PLATELET 332 245 206 Last 3 Lytes Recent Labs 09/14/17 0937 09/14/17 0507 09/13/17 2142 09/11/17 0347 09/06/17 0833 09/06/17 0431 NA 142 144 138 < > 128* < > 146* 146* 144 144 K -- -- -- -- 3.5 -- 3.7 3.6 CL -- -- -- -- 91* -- 111* 109* CO2 -- -- -- -- 24 -- 26 25 BUN -- -- -- -- 14 -- 18 16 CREATININE -- -- -- -- 0.63* -- 0.79* 0.75* < > = values in this interval not displayed. Last Ca, Mg, Phos Recent Labs 09/11/17 0347 09/08/17 0334 CALCIUM 8.1* 7.8* PHOS -- 3.2 Assessment: 27 y/o man with pmhx history of??resection of pituitary tumor, intraoperative hemorrhage and??CVA, cognitive impairment, cortical blindness, partial L sided paralysis, seizure disorder, and panhypopituitarism (with DI, adrenal insufficiency, hypothyroidism, hypogonadism) here with a left acetabularfracture that occurred in the setting of a possible seizure. He is now s/p operative repair on 09/04 with post operative course c/b issues with sodium and fluid homeostasis which has improved with initiation of DDAVP. Sodium has now stabilized. Will plan to space out serum sodium monitoring and plan for discharge in the next 24 hours if there is an accepting rehab facility. He is having some increased left calf pain today. Will check full electrolytes panel and apply topical muscle relaxants. Pain medications titrated to alleviate symptoms. Plan: # Panhypopituitarism # Acute Hyponatremia - DI: Continue DDAVP every 8 hours. Trending sodium Q6H. Continue 3 L fluid restriction. - Adrenal insufficiency - Continue home hydrocortisone (20mg at 0700, 10mg at 1200 and 1900) - Hypothyroidism - TFT's at goal - continue levothyroxine 150 mcg - Hypogonadism - will continue androgel supplementation outpatient - Appreciate Endocrine input on all of the above # Acetabular fracture - S/p operative repair 09/04 - Continue pain control with scheduled tylenol and prn po dilaudid - Continue DVT ppx with lovenox - PT/OT -- NWB LLE, OK for stand pivot transfer from wheelchair per Ortho ?? # Acute blood loss anemia - Improved - Minimizing blood draws where able # Seizure d/o with breakthrough seizure after no seizures for 4 years: Stable. - S/p Zonesamide load of 400mg, now 200mg QHS per Neuro - Metabolic, endocrine, infectious w/u unrevealing thus far (cxr clear, u/a negative, Bcx's NGTD, flu test negative) other than sodium fluctuations which are being managed as above - Appreciate Neuro input ?? # Decreased bone mineral density - Ca/ Vit D recommended ?? 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 described above Diet Regular diet Discharge planning Anticipate patient will be medically stable for discharge to rehab within next 24-48 hours Lines/Access None Morse catheter None DVT Prophylaxis Enoxaparin Code status FULL Team Pager [phone] PCP NAKIA Cifuentes Attestation IPI Certification I certify that I am a D-H credentialed attending provider with admitting privileges and that the patient meets or has met medical necessity to require an inpatient IPI level of care meeting a minimumof two midnights or is on the CMS inpatient only procedure list (status C) due to: Acetabular fracture requiring operative repair, severe hyponatremia requiring lab monitoring every 4 hours and monitoring of fluid status REBA LINTON MD * Ismael Degroot RN - 09/13/2017 10:21 PM EST Pt extremely agitated, screaming and ripping at sheets, restless in bed. Caregivers state that he does scream at baseline but sister reports this is above normal activity for him and believes it is pain related. Pt does clutch at L hip and does not want anyone touching or repositioning that leg. (medicine pager [phone]) notified and additional 2 mg of po Dilaudid ordered to be given if current 4 mg not effective, with the consideration of increasing Dilaudid dose to 4-6 mg prn. Sister spending the night with pt and wishes to discuss plan with team in the morning. * Reba Linton MD - 09/13/2017 10:28 AM EST Hospital Medicine Attending Daily Progress Note Admit Date: 09/02/2017 Hospital Day 11 days Active Hospital Problems Diagnosis ??? S/P ORIF left acetabulum fracture 09/04/2017 Dr. Lance ??? Postoperative anemia due to acute blood loss ??? Diabetes insipidus ??? Adrenal insufficiency ??? Panhypopituitarism ??? Seizure disorder ??? Hypothyroidism Resolved Hospital Problems Diagnosis Date Resolved No resolved problems to display. Interval History: - No acute events overnight - Received 1 oral dose of DDAVP overnight for uptrending sodium - Denies chest pain, shortness of breath, abdominal pain, nausea, vomiting, urinary symptoms. - Denies increased thirst. Physical Exam Vitals Range last 24 hrs Temperature Temp: [36.3 ??C (97.3 ??F)-36.7 ??C (98.1 ??F)] Heart Rate Heart Rate: -- Blood Pressure BP: (116-137)/(69-84) Respiratory Rate Resp: [18-22] SpO2 SpO2: [98 %-100 %] Intake/Output Summary (Last 24 hours) at 09/13/17 1028 Last data filed at 09/13/17 0903 Gross per 24 hour Intake 1300 ml Output 1250 ml Net 50 ml No data found. Gen: NAD, lying in bed, able to respond to questions with one word answers at baseline HEENT: Oropharynx clear, moist mucus membranes, +blindness CV: Tachycardic rate, regular rhythm, 2/6 systolic murmur that doesn't radiate to the carotids withno rubs/gallops Pulm: Normal respiratory effort, speaking normally, clear to auscultation bilaterally, normal expiratory phase, mild upper airway wheezes with no crackles Abd: Non-distended, normal bowel sounds in all 4 quadrants, soft, non-tender, no masses, no guarding, no hepatosplenomegaly, lower abdominal incision healing well and non-erythematous Ext: No pedal edema, 2+ radial/DP pulses Skin: Warm, dry, no rashes LABS: Last 3 wbc, hgb, hct plt Recent Labs 09/10/17 0350 09/09/17 0321 09/08/17 0334 WBC 8.8 7.8 6.3 HGB 8.5* 7.7* 7.2* HCT 25.7* 23.7* 21.8* PLATELET 332 245 206 Last 3 Lytes Recent Labs 09/13/17 0909 09/13/17 0357 09/12/17 2343 09/11/17 0347 09/06/17 0833 09/06/17 0431 NA 143 142 143 < > 128* < > 146* 146* 144 144 K -- -- -- -- 3.5 -- 3.7 3.6 CL -- -- -- -- 91* -- 111* 109* CO2 -- -- -- -- 24 -- 26 25 BUN -- -- -- -- 14 -- 18 16 CREATININE -- -- -- -- 0.63* -- 0.79* 0.75* < > = values in this interval not displayed. Last Ca, Mg, Phos Recent Labs 09/11/17 0347 09/08/17 0334 CALCIUM 8.1* 7.8* PHOS -- 3.2 Assessment: 27 y/o man with pmhx history of??resection of pituitary tumor, intraoperative hemorrhage and??CVA, cognitive impairment, cortical blindness, partial L sided paralysis, seizure disorder, and panhypopituitarism (with DI, adrenal insufficiency, hypothyroidism, hypogonadism) here with a left acetabularfracture that occurred in the setting of a possible seizure. He is now s/p operative repair on 09/04 with post operative course c/b issues with sodium and fluid homeostasis which has improved with initiation of DDAVP. Sodium has now stabilized. Will plan to [id number] serum and urine osms and continue Q6H serum sodium monitoring. Plan: # Panhypopituitarism # Acute Hyponatremia - DI: Continue DDAVP every 8 hours. Trending sodium Q6H. Continue 3 L fluid restriction. - Adrenal insufficiency - Continue home hydrocortisone (20mg at 0700, 10mg at 1200 and 1900) - Hypothyroidism - TFT's at goal - continue levothyroxine 150 mcg - Hypogonadism - will continue androgel supplementation outpatient - Appreciate Endocrine input on all of the above # Acetabular fracture - S/p operative repair 09/04 - Continue pain control with scheduled tylenol and prn po dilaudid - Continue DVT ppx with lovenox - PT/OT -- NWB LLE, OK for stand pivot transfer from wheelchair per Ortho ?? # Acute blood loss anemia - Improved - Minimizing blood draws where able # Seizure d/o with breakthrough seizure after no seizures for 4 years: Stable. - S/p Zonesamide load of 400mg, now 200mg QHS per Neuro - Metabolic, endocrine, infectious w/u unrevealing thus far (cxr clear, u/a negative, Bcx's NGTD, flu test negative) other than sodium fluctuations which are being managed as above - Appreciate Neuro input ?? # Decreased bone mineral density - Ca/ Vit D recommended ?? 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 described above Diet Regular diet Discharge planning Anticipate patient will be medically stable for discharge to rehab within next 24-48 hours Lines/Access None Morse catheter None DVT Prophylaxis Enoxaparin Code status FULL Team Pager [phone] PCP NAKIA Cifuentes Attestation IPI Certification I certify that I am a D-H credentialed attending provider with admitting privileges and that the patient meets or has met medical necessity to require an inpatient IPI level of care meeting a minimumof two midnights or is on the [facility] inpatient only procedure list (status C) due to: Acetabular fracture requiring operative repair, severe hyponatremia requiring lab monitoring every 4 hours and monitoring of fluid status REBA LINTON MD * Crista Diaz RN - 09/13/2017 9:42 AM EST RN attempted to straight cath patient at 0915, tubing felt to be coiling with straight catheter. RNobtained coude tiped straight catheter, attempted to cath patient again, unsuccessful. RN paged MD Lizette Linton about inability to cath patient. MD requested bladder scan, Pt bladder scanned for 173cc, MD made aware of scan. Awaiting intervention from MD at this time, will continue to monitor. * Ren Sanchez III, MD - 09/12/2017 3:12 PM EST Hospital Medicine Attending Daily Progress Note Admit Date: 09/02/2017 Hospital Day 10 days Active Hospital Problems Diagnosis ??? S/P ORIF left acetabulum fracture 09/04/2017 Dr. Lance ??? Postoperative anemia due to acute blood loss ??? Diabetes insipidus ??? Adrenal insufficiency ??? Panhypopituitarism ??? Seizure disorder ??? Hypothyroidism Resolved Hospital Problems Diagnosis Date Resolved No resolved problems to display. Interval History: -Agitated overnight again -Self pulled Morse catheter Physical Exam Vitals Range last 24 hrs Temperature Temp: [36.6 ??C (97.9 ??F)-37 ??C (98.6 ??F)] Heart Rate Heart Rate: -- Blood Pressure BP: (120-146)/(69-84) Respiratory Rate Resp: [18-22] SpO2 SpO2: [95 %-99 %] Intake/Output Summary (Last 24 hours) at 09/12/17 1512 Last data filed at 09/12/17 1330 Gross per 24 hour Intake 1660 ml Output 650 ml Net 1010 ml No data found. Gen: NAD, lying in bed, able to respond to questions with one word answers at baseline HEENT: Oropharynx clear, moist mucus membranes CV: Tachycardic rate, regular rhythm, 2/6 systolic murmur that doesn't radiate to the carotids withno rubs/gallops Pulm: Normal respiratory effort, speaking normally, clear to auscultation bilaterally, normal expiratory phase, mild upper airway wheezes with no crackles Abd: Non-distended, normal bowel sounds in all 4 quadrants, soft, non-tender, no masses, no guarding, no hepatosplenomegaly Ext: No pedal edema, 2+ radial/DP pulses Skin: Warm, dry, no rashes LABS: Last 3 wbc, hgb, hct plt Recent Labs 09/10/17 0350 09/09/17 0321 09/08/17 0334 WBC 8.8 7.8 6.3 HGB 8.5* 7.7* 7.2* HCT 25.7* 23.7* 21.8* PLATELET 332 245 206 Last 3 Lytes Recent Labs 09/12/17 1214 09/12/17 0748 09/12/17 0401 09/11/17 0347 09/06/17 0833 09/06/17 0431 NA 148* 141 136 < > 128* < > 146* 146* 144 144 K -- -- -- -- 3.5 -- 3.7 3.6 CL -- -- -- -- 91* -- 111* 109* CO2 -- -- -- -- 24 -- 26 25 BUN -- -- -- -- 14 -- 18 16 CREATININE -- -- -- -- 0.63* -- 0.79* 0.75* < > = values in this interval not displayed. Last Ca, Mg, Phos Recent Labs 09/11/17 0347 09/08/17 0334 CALCIUM 8.1* 7.8* PHOS -- 3.2 Assessment: 27 yo man with a history of??resection of pituitary tumor, intraoperative hemorrhage and??CVA, cognitive impairment, cortical blindness, partial L sided paralysis, seizure disorder, and panhypopituitarism (with DI, adrenal insufficiency, hypothyroidism, hypogonadism) here with a left acetabular fracture that occurred in the setting of a possible seizure. Sodium/Fluid management remain the biggest issue. He now has increasing Na while holding his DDAVP.Will restart this and monitor closely. Plan: # Panhypopituitarism #Acute Hyponatremia -DI: Restart DDAVP - q 4 hr Na levels, 3 L fluid restriction, attempt to monitor urine outs but difficult sans morse -Adrenal insufficiency - Home hydrocortisone (20mg at 0700, 10mg at 1200 and 1900) -hypothyroid - TFT's at goal - continue levothyroxine 150 mcg -hypogonadism - will continue androgel supplementation outpatient -appreciate Endocrine input on all of the above # Acetabular fracture -underwent operative repair 09/04 -pain control with scheduled tylenol and prn po dilaudid -dvt proph with lovenox -PT/OT -- NWB LLE, OK for stand pivot transfer from wheelchair per Ortho ?? # Acute blood loss anemia: Improving -Minimize further blood draws as much as possible # Seizure d/o with breakthrough seizure after no seizures for 4 years: Stable. -s/p Zonesamide load of 400mg, now 200mg QHS per Neuro -metabolic, endocrine, infectious w/u unrevealing thus far (cxr clear, u/a negative, Bcx's NGTD, flu test negative) -appreciate Neuro input ? # Decreased bone mineral density - Ca/ Vit D recommended ?? # Hypophosphatemia: Resolved ?? 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 ? IV access: piv Tubes/Drains: Morse DVT PPX: lovenox Anticipated Disposition: Awaiting rehab once Na stable ?? Goals of Care: Full Code Team Pager( Coverage 27/01): #[phone] PCP: NAKIA Cifuentes [phone] REN SANCHEZ III, MD * Christopher Hess MD - 09/12/2017 8:17 AM EST Images from the original note were not included. 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 Endocrinology team was asked to address his panhypopituitarism. ?? Interim events: Asked to keep accurate I/O on this patient yesterday. In attempts to place morse catheter the patient became very agitated and crying out. Morse was traumatically removed and kept outper his primary team overnight. Patient continues to cry out. Per notations, this is typical behavior for him. Patient had a sodium of 141. This morning. The patient is incontinent therefore urine output is not being accurately monitored. Patient is on 4L fluid restriction recommended yesterday. Past Surgical History: Procedure Laterality Date ??? PRO OPEN CROSSCUTTER ROLLED GLASS FIX ACETABULAR FX Left 09/04/2017 @OPEN TREATMENT, ACETABULAR FX (WRVU 25.41) performed by Amy Lance MD at [facility] MAIN OR Allergies Allergen Reactions ??? Lopid [Gemfibrozil] Current Medications: Scheduled Meds: ??? desmopressin 0.05 mg Oral Q12H ??? calcium carbonate 500 mg Oral BID ??? cholecalciferol (Vitamin D3) 1,000 Units Oral Daily ??? hydrocortisone 20 mg Oral QAM ??? hydrocortisone 10 mg Oral Daily at Noon ??? hydrocortisone 10 mg Oral Q24H ??? enoxaparin 40 mg Subcutaneous Nightly ??? levothyroxine 150 mcg Oral QAM ??? melatonin 3 mg Oral Nightly ??? pantoprazole 40 mg Oral QAM AC ??? QUEtiapine 250 mg Oral Nightly ??? traZODone 50 mg Oral Nightly ??? sodium chloride 0.9 % 5 mL Intravenous BID ??? zonisamide 200 mg Oral Nightly ??? acetaminophen 1,000 mg Oral Q6H CIRO Continuous Infusions: PRN Meds:.HYDROmorphone, LORazepam, meTOPROLOL, polyethylene glycol (MIRALAX)oral powder, senna-docusate, sodium chloride 0.9 %, lidocaine, naphazoline-pheniramine Physical Exam: BP 120/69 (BP Location (NBP): Right arm) Pulse (!) 134 Temp 36.6 ??C (97.9 ??F) (Oral) Resp 18 Ht 177.8 cm (5' 10) Wt 86.6 kg (191 lb) Comment: weight taken postoperatively using bed scalefrom unit SpO2 95% Patient seated in chair Responding to some questions, rn medicare at bedside helps interaction CVS/Lungs- regular/clear No new change in sensorium or neurologic deficits Assessment Miguel Angel Mason??is a 27 year old male??with PMH significant for ??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 Endocrinology team was asked to address his panhypopituitarism. DI most active issue. The patient had a precipitous drop in sodium to 128 yesterday morning. This was thought to be related to unregulated large amounts of fluid intake. A 4L fluid restriction was recommended. The patienthas not had any DDAVP to this point but it is ordered for this afternoon. Per primary team would like to get this patient back to his usual home regimen using DDAVP TID with a 3L fluid restriction, we agree that this would be ideal. Plan: --- DDAVP to be given shortly, would like to track sodium, urine osmo and serum osmo, ideally wouldalso try to at least approximate urine output --- Continue fluid restriction as well, If dosing DDAVP TID would most definitely stick to his home3L restriction --- Please continue stable doses of Levothyroxine and Hydrocortisone Thank you for allowing us participate in the care of this patient. Patient was discussed with the attending provider, Dr. Hess. Lindsey Walsh, Endocrinology, Diabetes and Metabolism Fellow 09/12/2017 8:17 AM I saw this patient with Dr Walsh. I reviewed the santos portions of the history and physical exam, and reviewed pertinent lab data. I answered all patient questions. I was involved in all medical decision making and agree with this plan. Today Mr Isabella was more animated than I had seen him before. Unfortunately we do not have the ability to track I/O at this point. From discussion with the team, he is stable except for his sodium/fluid status. At this point I agree with the plan to return him ot his usual baseline plan, using stability in serum sodium as the guide to reduce the intensity of monitoring him. I think we will have to accept a range in sodium from 132 to 148 provided it does not exceed these bounds. * Monica, Berlin Almaraz MD - 09/12/2017 7:06 AM EST Orthopaedic Surgery Progress Note Surgery/Issue: ORIF left acetabulum Attending: Dr. Lance Date of surgery: 09/04/2017 Subjective/Events: Resting comfortably this morning. Agitated overnight. Swinging at staff. Pulled morse out with leg.Family at bedside commented that his yelling and screaming is typical of him, even when he doesn't have pain. Family doesn't think that he is in pain now. Objcetive: Temp: [36.6 ??C (97.9 ??F)-37 ??C (98.6 ??F)] Resp: [18] BP: (120-146)/(69-83) Intake/Output Summary (Last 24 hours) at 09/12/17 0714 Last data filed at 09/12/17 0058 Gross per 24 hour Intake 1550 ml Output 2300 ml Net -750 ml Lab Results Component Value Date NA 136 09/12/2017 K 3.5 09/11/2017 CL 91 (L) 09/11/2017 CO2 24 09/11/2017 BUN 14 09/11/2017 CREATININE 0.63 (L) 09/11/2017 GLUCOSE 89 09/11/2017 CALCIUM 8.1 (L) 09/11/2017 Lab Results Component Value Date WBC 8.8 09/10/2017 HGB 8.5 (L) 09/10/2017 HCT 25.7 (L) 09/10/2017 MCV 84.0 09/10/2017 PLATELET 332 09/10/2017 Lab Results Component Value Date INR 1.1 09/03/2017 Exam: General: NAD, responds to questions with head, CV: RRR Resp: Breathing comfortably, lungs CTAB LLE: Anterior pelvic/left lower abdominal dressing c/d/i. Mepilex on lateral leg x2 c/d/i, and medical mepilex c/d/i Unable to assess motor/sensory He moves LLE spontaneously, wiggles toes Palpable DP/PT Radiology: XR Pelvis 09/10/17 Anatomic reduction of pelvis with hardware in position. A/P: 27 y.o. male s/p ORIF left acetabular fx. Progressing well post operatively. Further care per medicine, plan to work with PT/OT. Activity: NWB LLE, OK for stand pivot transfer on right leg only DVT prophylaxis: lovenox Closure: [place] to be removed 09/19 Dressing: Mepilex to protect incisions from patient, replace as needed. Future Appointments Date Time Provider Department Center 09/19/2017 2:15 PM [facility] DX ROOM 1 Xray [facility] 09/19/2017 3:10 PM Amy Lance MD [facility] Associated attestation - Amy Lance MD - 09/16/2017 6:11 AM EDT Agree with resident note. Mandy Lance MD Department of Orthopaedics 09/16/17 * Masood High RN - 09/11/2017 9:00 PM EST Covering provider at bedside. Patient extremely agitated, yelling, trying to hit and kick. Morse catheter was in fact pulled out all the way. Per discussion with provider we will take patient out of restraints at this time, and not replace morse for now to see if the patient will settle at all. If patient should continue to be combative with staff the plan is to replace restraints to all 4 limbs. * Masood High RN - 09/11/2017 8:26 PM EST Caregiver just came to nurses station to state it didn't work (referring that patient pulled out morse catheter). * Masood High RN - 09/11/2017 8:16 PM EST Patient placed in bilateral soft limb wrist and mitt restraints for patient safety regarding morse catheter, per MD orders. * Masood High RN - 09/11/2017 8:06 PM EST In to assess patient. He is yelling and rocking in the bed. Pulling at his catheter, and will not let go of tubing or his penis. Caregiver stated that he stated it hurt down there, but when we both inquired again he said no. He was very agitated and would not let go. Kept kicking his legs and swinging his right arm. Concern for him to pull the catheter out with his hand, or wrap his leg in the tubing and kick it out. Covering MD paged to inquire about a restraint order for mitts and soft wrist restraint. Caregiver and RN unable to redirect patient at this time. Caregiver to remain at bedside. * Chavez Kelsey RN - 09/11/2017 1:12 PM EST OFFICE OF CARE MANAGEMENT Met with pt and his rn medicare this am., Per review with medical team, pt NOT medically ready today due to electrolyte imbalance. Will ask RS to update facilities in referral, potentially medically cleared within 24 hrs * Christopher Hess MD - 09/11/2017 8:35 AM EST Images from the original note were not included. ENDOCRINOLOGY FOLLOW UP INPATIENT NOTE [facility] Name: Miguel Angel Mason Date of Consultation: 09/11/2017 ?? 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 Endocrinology team was asked to address his panhypopituitarism. Interim events: Patient sodium remaining completely stable since 09/06. Dropped to 130 then 128 this morning. Patient input is not being documented but as noted yesterday, we suspect he is taking in large amounts PO. Per nursing no events overnight. Past Surgical History: Procedure Laterality Date ??? PRO OPEN CROSSCUTTER ROLLED GLASS FIX ACETABULAR FX Left 09/04/2017 @OPEN TREATMENT, ACETABULAR FX (WRVU 25.41) performed by Amy Lance MD at [facility] MAIN OR Allergies Allergen Reactions ??? Lopid [Gemfibrozil] Current Medications: Scheduled Meds: ??? calcium carbonate 500 mg Oral BID ??? cholecalciferol (Vitamin D3) 1,000 Units Oral Daily ??? hydrocortisone 20 mg Oral QAM ??? hydrocortisone 10 mg Oral Daily at Noon ??? hydrocortisone 10 mg Oral Q24H ??? enoxaparin 40 mg Subcutaneous Nightly ??? levothyroxine 150 mcg Oral QAM ??? melatonin 3 mg Oral Nightly ??? pantoprazole 40 mg Oral QAM AC ??? QUEtiapine 250 mg Oral Nightly ??? traZODone 50 mg Oral Nightly ??? sodium chloride 0.9 % 5 mL Intravenous BID ??? zonisamide 200 mg Oral Nightly ??? 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 Endocrinology consulted for history of panhypopituitarism. Patient was stable on DDAVP BID dosing until adrop in sodium to 130 yesterday night and further drop to 128 this morning. No reported or documented change in IVF management, patient has no IV access. Patient has been drinking to thirst during this admission, this is not being documented accurately. The exact etiology of his sudden sodium instability is not yet clear. His sodium went from 138 to 128 in a matter of 24 hours. As known, rapid sodium fluctuations are dangerous and should be avoided. It would be ideal to get his sodium within normal range as soon as possible. Plan: --- Repeat sodium level now --- HOLD morning DDAVP dosing --- If repeat sodium <130 would recommend consideration of hypertonic saline to reverse this perceptions drop --- Would recommend holding DDAVP for now --- These recommendations were relayed to the primary team and nursing staff Thank you for allowing us participate in the care of this patient. Patient was discussed with the attending provider, Dr. Hess. Lindsey Walsh DO Endocrinology, Diabetes and Metabolism Fellow 09/11/2017 8:36 AM Post-rounds addendum: Spoke with nursing staff. Agrees and understands importance of full documentation of I/O every two hours. Sodium checks recommended every two hours for now. Sodium now trending up. Would continue to hold DDAVP. Would recommend a 4L fluid restriction. Lindsey Walsh DO 09/11/17 11:50 AM Post-rounds addendum: Documentation of urine output of 900cc in past 2 hours from 11 am to 1 pm by nursing staff. At thispoint would recommend to give DDAVP dose as sodium will likely be elevated next check. 12:56 PM Called the nurse to confirm that this patients urine output was 900cc in two hours. Was told that the documented urine output from 11am to 1 pm was actually from 5 am to 11 am, which is about 180cc an hour NOT 900 cc in two hours. Had the DDAVP held until sodium level returned. Sodium is now 134. Got a page from the nurse relaying the messaging that the morse was emptied from 11:45 to 1:45 pm thepatient put out 1150 cc. DDAVP should be dosed now. The importance of every two hour urine output checks and accurate (in real time) documentation was discussed. This is critical to appropriately manage DI cases and avoid rapid fluctuations in sodium. Lindsey Walsh DO 2:04 PM I saw this patient with Dr Walsh. I reviewed the santos portions of the history and physical exam, and reviewed pertinent lab data. I answered all patient questions. I was involved in all medical decision making and agree with this plan. * Ren Sanchez III, MD - 09/11/2017 8:16 AM EST [facility] Medicine Attending Daily Progress Note Admit Date: 09/02/2017 Hospital Day 9 days Active Hospital Problems Diagnosis ??? S/P ORIF left acetabulum fracture 09/04/2017 Dr. Lance ??? Postoperative anemia due to acute blood loss ??? Diabetes insipidus ??? Adrenal insufficiency ??? Panhypopituitarism ??? Seizure disorder ??? Hypothyroidism Resolved Hospital Problems Diagnosis Date Resolved No resolved problems to display. Interval History: -NAEO -Agitated overnight, responded with 1x ativan -Sodium has dropped overnight, roughly 10mEq in 24 hour period despite no change in his regimen. AMDDAVP held -Denies sob,cp,nausea,abdominal pain, or constipation. Reports he feels awesomely. Physical Exam Vitals Range last 24 hrs Temperature Temp: [36.6 ??C (97.9 ??F)-36.8 ??C (98.2 ??F)] Heart Rate Heart Rate: -- Blood Pressure BP: (126-137)/(73-83) Respiratory Rate Resp: [18] SpO2 SpO2: [96 %-97 %] Intake/Output Summary (Last 24 hours) at 09/11/17 0816 Last data filed at 09/11/17 0350 Gross per 24 hour Intake 360 ml Output 3050 ml Net -2690 ml Patient Vitals for the past 168 hrs: Weight 09/04/17 1300 86.6 kg (191 lb) Gen: NAD, lying in bed, able to respond to questions with one word answers at baseline HEENT: Oropharynx clear, moist mucus membranes CV: Tachycardic rate, regular rhythm, 2/6 systolic murmur that doesn't radiate to the carotids withno rubs/gallops Pulm: Normal respiratory effort, speaking normally, clear to auscultation bilaterally, normal expiratory phase, mild upper airway wheezes with no crackles Abd: Non-distended, normal bowel sounds in all 4 quadrants, soft, non-tender, no masses, no guarding, no hepatosplenomegaly Ext: No pedal edema, 2+ radial/DP pulses Skin: Warm, dry, no rashes LABS: Last 3 wbc, hgb, hct plt Recent Labs 09/10/17 0350 09/09/17 0321 09/08/17 0334 WBC 8.8 7.8 6.3 HGB 8.5* 7.7* 7.2* HCT 25.7* 23.7* 21.8* PLATELET 332 245 206 Last 3 Lytes Recent Labs 09/11/17 0347 09/10/17 1857 09/10/17 0350 09/06/17 0833 09/06/17 0431 NA 128* 130* 138 < > 146* 146* 144 144 K 3.5 -- -- -- 3.7 3.6 CL 91* -- -- -- 111* 109* CO2 24 -- -- -- 26 25 BUN 14 -- -- -- 18 16 CREATININE 0.63* -- -- -- 0.79* 0.75* < > = values in this interval not displayed. Last Ca, Mg, Phos Recent Labs 09/11/17 0347 09/08/17 0334 CALCIUM 8.1* 7.8* PHOS -- 3.2 Assessment: 27 yo man with a history of??resection of pituitary tumor, intraoperative hemorrhage and??CVA, cognitive impairment, cortical blindness, partial L sided paralysis, seizure disorder, and panhypopituitarism (with DI, adrenal insufficiency, hypothyroidism, hypogonadism) here with a left acetabular fracture that occurred in the setting of a possible seizure. Mr. Mason's sodium decreased over the past 24 hours from 138 to 128, likely due to increased waterintake. Will hold on his DDAVP for now and recheck sodium with the potential for hypertonic saline if it continues to drop. He will also need strict ins and outs for now. Otherwise he is medically cleared for discharge apart from this acute hyponatremia. Plan: # Acetabular fracture -underwent operative repair 09/04 -pain control with scheduled tylenol and prn po dilaudid -dvt proph with lovenox -PT/OT -- NWB LLE, OK for stand pivot transfer from wheelchair per Ortho ?? # Acute blood loss anemia: Improving -Minimize further blood draws as much as possible # Seizure d/o with breakthrough seizure after no seizures for 4 years: Stable. -s/p Zonesamide load of 400mg, now 200mg QHS per Neuro -metabolic, endocrine, infectious w/u unrevealing thus far (cxr clear, u/a negative, Bcx's NGTD, flu test negative) -appreciate Neuro input ? # Panhypopituitarism #Acute Hyponatremia -Holding DDAVP this AM, rechecking Sodium, may need hypertonic saline pending results. Strict Ins and Outs -Adrenal insufficiency - Home hydrocortisone (20mg at 0700, 10mg at 1200 and 1900) -hypothyroid - TFT's at goal - continue levothyroxine 150 mcg -hypogonadism - will continue androgel supplementation outpatient -appreciate Endocrine input on all of the above ?? # Decreased bone mineral density - Ca/ Vit D recommended ?? # Hypophosphatemia: Resolved ?? 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 ? IV access: piv Tubes/Drains: Morse DVT PPX: lovenox Anticipated Disposition: Awaiting reahb ?? Goals of Care: Full Code Team Pager(MD Coverage 27/01): #[phone] PCP: NAKIA Cifuentes [phone] Delgado Jeffrey MD Attending Attestation Please see Dr. Jeffrey's note for details of the patient history of presentation and data. I have discussed, reviewed and agree with the documented History, Physical findings, Assessment and Plan of care. I have examined the patient myself and personally reviewed all studies. In addition, I certify thatI am a [facility] credentialed attending provider with admitting privileges and that the patient meets or has met medical necessity to require an inpatient IPI level of care meeting a minimum of two midnights or is on the [facility] inpatient only procedure list (status C) due to: monitoring of fluid status given an inability to regulate fluid balance and the need for administration or restriction of fluids. REN SANCHEZ III, MD * Eula Lujan RN - 09/11/2017 2:17 AM EST Assumed pt care at 1900 (09/10). VSS, assessment complete. Pt is agitated and restless, constantly screaming out loud. Per report patient was doing the same thing last night. Pt is able to state he is in pain and points to left knee. Medicated patient appropriately. After pain medication was administered, pt is able to state he has no pain, yet continues to yell out. aware, PRN ativan given - does not seem to work. Caregiver states that it depends on the dose when asked by RN if he has had it before and if it works for him. Patient is tugging at his morse catheter. Caregiver aware. Pt pulled off brief. Plan is for rehab. Will continue to monitor and assess. * Debbie Keller DT - 09/10/2017 1:00 PM EST Nutrition Services - Initial Note Miguel Angel Mason : 1990 AGE: 27 y.o. Patient Active Problem List Diagnosis Date Noted ??? *Hospital-S/P ORIF left acetabulum fracture 09/04/2017 Dr. Lance 09/02/2017 ??? Hospital-Postoperative anemia due to acute blood loss 09/04/2017 ??? Hospital-Diabetes insipidus 09/03/2017 ??? Hospital-Adrenal insufficiency 09/03/2017 ??? 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 Hospital-Seizure disorder 09/03/2017 ??? Insomnia 09/03/2017 ??? Blind 09/03/2017 ??? CVA (cerebral vascular accident) 09/03/2017 ??? Urinary incontinence 09/03/2017 ??? Hospital-Hypothyroidism 09/03/2017 Reason for Nutrition Intervention: Hospital Day 9 Diet Order: Regular Appetite: Pretty good- per visitor Food allergies: NKFA Chewing/Swallowing difficulty: None noted- per visitor Ht Readings from Last 3 Encounters: 09/07/17 177.8 cm (5' 10) Wt Readings from Last 3 Encounters: 09/04/17 86.6 kg (191 lb) There is no height or weight on file to calculate BMI. Assessment: Patient seen regarding hospital LOS. Visitor, dAriane, at bedside at time of arrival and pt asleep. Land Agent able to speak with visitor on pt's nutritional care. Visitor reported a pretty good appetite without difficulty chewing or swallowing. He is tolerating current diet without nausea or vomiting. Visitor stated pt consumed 85% PO intake of breakfast today. Visitor had just called in lunch choices to diet office. Nursing/ visitor/ family calling in meal choices daily or pt will receive a standard tray if no choices are in to ensure pt receives 3 meals qd. Nursing notes documenting three 100% PO intakes on 09/09. Visitor declined dietary services open meal containers and cut up foods at this time. Visitor informed of supplemental shakes available if needed. Land Agent showed Adriane where unit kitchen is for any snacks requested throughout day. Visitor appreciative and thankful.Visitor had no further questions at this time. Encouraged visitor to contact Food and Nutrition services with any questions/ requests that may arise. Nutrition will monitor and follow up weekly. Nutrition Plan: Continue current diet. Recommend Daily Multi Vitamins. Monitor weight. Encourage good po intake. Support and encouragement provided. Nutrition services to follow weekly thru hospital course unless consulted in the interim. ADAM Kaur * Ren Sanchez III, MD - 09/10/2017 11:57 AM EST Hospital Medicine Attending Daily Progress Note Admit Date: 09/02/2017 Hospital Day 8 days Active Hospital Problems Diagnosis ??? S/P ORIF left acetabulum fracture 09/04/2017 Dr. Lance ??? Postoperative anemia due to acute blood loss ??? Diabetes insipidus ??? Adrenal insufficiency ??? Panhypopituitarism ??? Seizure disorder ??? Hypothyroidism Resolved Hospital Problems Diagnosis Date Resolved No resolved problems to display. Interval History: -Some agitation, crying out, overnight -Calm this morning Physical Exam Vitals Range last 24 hrs Temperature Temp: [36.4 ??C (97.5 ??F)-37.3 ??C (99.1 ??F)] Heart Rate Heart Rate: -- Blood Pressure BP: (127-151)/(64-87) Respiratory Rate Resp: [16-20] SpO2 SpO2: [96 %-98 %] Intake/Output Summary (Last 24 hours) at 09/10/17 1157 Last data filed at 09/10/17 1126 Gross per 24 hour Intake 1140 ml Output 1825 ml Net -685 ml Patient Vitals for the past 168 hrs: Weight 09/04/17 1300 86.6 kg (191 lb) Gen: NAD, lying in bed, able to respond to questions HEENT: Oropharynx clear, moist mucus membranes CV: Tachycardic rate, regular rhythm, 2/6 systolic murmur that doesn't radiate to the carotids withno rubs/gallops Pulm: Normal respiratory effort, speaking normally, clear to auscultation bilaterally, normal expiratory phase, mild upper airway wheezes with no crackles Abd: Non-distended, normal bowel sounds in all 4 quadrants, soft, non-tender, no masses, no guarding, no hepatosplenomegaly Ext: No pedal edema, 2+ radial/DP pulses Skin: Warm, dry, no rashes LABS: Last 3 wbc, hgb, hct plt Recent Labs 09/10/17 0350 09/09/17 0321 09/08/17 0334 WBC 8.8 7.8 6.3 HGB 8.5* 7.7* 7.2* HCT 25.7* 23.7* 21.8* PLATELET 332 245 206 Last 3 Lytes Recent Labs 09/10/17 0350 09/09/17 1102 09/09/17 0321 09/06/17 0833 09/06/17 0431 09/05/17 1506 09/05/17 0235 NA 138 141 140 < > 146* 146* 144 144 < > 146* < > 148* K -- -- -- -- 3.7 3.6 -- 3.9 < > 4.1 CL -- -- -- -- 111* 109* -- 114* < > 112* CO2 -- -- -- -- 26 25 -- 24 < > 23 BUN -- -- -- -- 18 16 -- -- -- 8* CREATININE -- -- -- -- 0.79* 0.75* -- -- -- 0.85 < > = values in this interval not displayed. Last Ca, Mg, Phos Recent Labs 09/08/17 0334 CALCIUM 7.8* PHOS 3.2 Assessment: 27 yo man with a history of??resection of pituitary tumor, intraoperative hemorrhage and??CVA, cognitive impairment, cortical blindness, partial L sided paralysis, seizure disorder, and panhypopituitarism (with DI, adrenal insufficiency, hypothyroidism, hypogonadism) here with a left acetabular fracture that occurred in the setting of a possible seizure. Mr. Mason continues to progress well, and is medically clear for discharge pending placement into rehab. When discharged, he will return to his previous regimen for his panhypopituitarism with endocrinology follow up. Despite his large urine output overnight, his sodium has remained stable and he does not appear volume down on exam. Reasonable to assume that the patient is drinking enough water to compensate that is not being recorded. Plan: # Acetabular fracture -underwent operative repair 09/04 -pain control with scheduled tylenol and prn po dilaudid -dvt proph with lovenox -PT/OT -- NWB LLE, [place] for stand pivot transfer from wheelchair per Ortho ?? # Acute blood loss anemia: Improving -Minimize further blood draws as much as possible # Seizure d/o with breakthrough seizure after no seizures for 4 years: Stable. -s/p Zonesamide load of 400mg, now 200mg QHS per Neuro -metabolic, endocrine, infectious w/u unrevealing thus far (cxr clear, u/a negative, Bcx's NGTD, flu test negative) -appreciate Neuro input ? # Panhypopituitarism -DI: Continue ddavp bid, continue PO intake as tolerated with strict ins and outs -Adrenal insufficiency - Home hydrocortisone (20mg at 0700, 10mg at 1200 and 1900) -hypothyroid - TFT's at goal - continue levothyroxine 150 mcg -hypogonadism - will continue androgel supplementation outpatient -appreciate Endocrine input on all of the above ?? # Decreased bone mineral density -work-up in progress per Endocrinology - Ca/ Vit recommended ?? # Hypophosphatemia: Resolved ?? 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 ? IV access: piv Tubes/Drains: Morse DVT PPX: lovenox Anticipated Disposition: Awaiting reahb ?? Goals of Care: Full Code Team Pager( Coverage 27/01): #[phone] PCP: NAKIA Cifuentes [phone] REN SANCHEZ III, MD * Shelley Tong RN - 09/10/2017 11:02 AM EST Office of Care Management Based on discussions with the multi-disciplinary healthcare team, his sibling, Bettina, would benefit from skilled level of care at discharge. ?? I have met with the patient/insurance sales representative to discuss discharge planning needs. I have provided the [facility], Office of Care Management letter from the [employer] pertaining to rehab referrals. I have also provided a letter describing our affiliations within the [facility] and educated them about their right to choose where referrals are placed. ?? I reviewed the different levels of rehab including SNF, swing, acute and LTAC with the patient/insurance sales representative. ?? The patient/insurance sales representative has been provided a list of facilities within their preferred geographic area. ?? I have requested that the patient/insurance sales representative provide at least three choices for referral. ?? The patient/insurance sales representative have requested referrals to: ?? 1. [facility] ?? 2. [facility] in [place], [place] 3. [facility] 4. [facility] ? Expected date of discharge: 09/10/2017 Note routed to Audit Director who will communicate referrals to facilities and provide any required information. Shelley Tong RN Case Manager Pager #[phone] * Comi, Christopher Jerez MD - 09/10/2017 7:10 AM EST Images from the original note were not included. 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 Endocrinology team was asked to address his panhypopituitarism. He was transitioned off IV steroids and kept on a stable hospital regimen of DDAVP this week. ?? Interim Events: No events overnight per nursing staff and nursing home staff at bedside. Patient responding and says he is awesome. Very pleasant. Drinking to thirst. Hungry and thirsty all the time per care givers from nursing home, this is not new. Sodium has remained stable. Allergies Allergen Reactions ??? Lopid [Gemfibrozil] Current Medications: Scheduled Meds: ??? desmopressin 0.05 mg Oral BID ??? hydrocortisone 20 mg Oral QAM ??? hydrocortisone 10 mg Oral Daily at Noon ??? hydrocortisone 10 mg Oral Q24H ??? enoxaparin 40 mg Subcutaneous Nightly ??? levothyroxine 150 mcg Oral QAM ??? melatonin 3 mg Oral Nightly ??? pantoprazole 40 mg Oral QAM AC ??? QUEtiapine 250 mg Oral Nightly ??? traZODone 50 mg Oral Nightly ??? sodium chloride 0.9 % 5 mL Intravenous BID ??? zonisamide 200 mg Oral Nightly ??? acetaminophen 1,000 mg Oral Q6H CIRO Continuous Infusions: PRN Meds:.meTOPROLOL, ondansetron, polyethylene glycol (MIRALAX)oral powder, senna-docusate, sodiumchloride 0.9 %, lidocaine, naphazoline-pheniramine, HYDROmorphone, HYDROmorphone Physical Exam: BP 127/68 Pulse (!) 134 Temp 36.4 ??C (97.5 ??F) (Oral) Resp 20 Ht 177.8 cm (5' 10) Wt 86.6 kg (191 lb) Comment: weight taken postoperatively using bed scale from unit SpO2 98% General - alert, moving around in bed, appears comfortable Mucous membranes - moist CVS - S1S2 regular Lung- clear Skin- moist and warm Assessment: Miguel Angel Mason??is a 27 y.o.male??with PMH significant for nursing home resident, 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 Endocrinology consulted for history of panhypopituitarism. Patient continues to be stable on current Hydrocortisone and Levothyroxine dosing. His DDAVP dosingalso appears stable as his sodium has been within normal range since 09/06/2017. This is allowing patient to drink to thirst. I suspect his actual intake is not being accurately captured which is why his output appears so grand. He again does not appear dehydrated also. Yesterday we also evaluated his 24 hour urine testing. He does not appear to have an overt renal phosphate wasting syndrome. His phosphate has been stable since it was replaced at the beginning of his hospitalization. For this reason, I would suggest calcium and vitamin D replacement on discharge given current fracture and probable low BMD from years of steroid use. On discharge, use of bisphosphonate should be considered by his primary record label intern. ?? Plan: Panhypopituitarism: --- Continue DDAVP BID --- Please encourage accurate I/O as best as possible --- Continue stable dose of Levothyroxine 150 mcg daily --- Continue current dose of Hydrocortisone 20/10/10mg daily On discharge we would like the patient to resume previous doses of DDAVP (three times daily) with his three liter fluid restriction. It is very important, that if he is going back to this TID regimenas requested by his primary record label intern and sister, he be placed on 3L fluid restriction to maintain his sodium in safe range. He can continue on Hydrocortisone 20/10/10 mg and Levothyroxine 150 mcg daily. Testosterone replacement can be resumed again in the outpatient setting also. Please also ensure this patient is getting at least 1200 mg calcium daily, this can be a combination of supplemental and dietary calcium if that is easily. He should also be on Vitamin D replacement using 1684-2418 IU daily. Thank you for allowing us participate in the care of this patient. Patient was discussed with the attending provider, Dr. Hess. Lindsey Walsh, Endocrinology, Diabetes and Metabolism Fellow 09/10/2017 7:11 AM I reviewed this patient with Dr Chun . I reviewed the santos portions of the history and physical exam, and reviewed pertinent lab data. . I was involved in all medical decision making and agree withthis plan. * Ren Sanchez III, MD - 09/09/2017 7:43 AM EST [facility] Medicine Attending Daily Progress Note Admit Date: 09/02/2017 Hospital Day 7 days ID 27 yo man with a history of??resection of pituitary tumor, intraoperative hemorrhage and??CVA, cognitive impairment, cortical blindness, partial L sided paralysis, seizure disorder, and panhypopituitarism (with DI, adrenal insufficiency, hypothyroidism, hypogonadism) here with a left acetabular f racture that occurred in the setting of a possible seizure. Interval History: -No acute events overnight -Large urine output overnight (5.6L) -Hgb improving -Required 2x 0.5mg IV Dilaudid yesterday evening Review of Systems: Positive in BOLD, rest negative Constitutional: fevers, chills, fatigue Resp: Dyspnea, cough, wheezing CV: Chest pain GI: Nausea, Vomitting, diarrhea, constipation, blood in stools : Dark urine, hematuria, dysuria MSK: Joint pain, Joint swelling, back pain Endocrine: ployuria/polydipsia Physical Exam Vitals Range last 24 hrs Temperature Temp: [36.8 ??C (98.2 ??F)-37.7 ??C (99.9 ??F)] Heart Rate Heart Rate: -- Blood Pressure BP: (125-141)/(73-98) Respiratory Rate Resp: [16-19] SpO2 SpO2: [94 %-97 %] Intake/Output Summary (Last 24 hours) at 09/09/17 0743 Last data filed at 09/09/17 0455 Gross per 24 hour Intake 360 ml Output 5675 ml Net -5315 ml Patient Vitals for the past 168 hrs: Weight 09/04/17 1300 86.6 kg (191 lb) Gen: NAD, lying in bed, able to respond to questions HEENT: Oropharynx clear, moist mucus membranes CV: Tachycardic rate, regular rhythm, 2/6 systolic murmur that doesn't radiate to the carotids withno rubs/gallops Pulm: Normal respiratory effort, speaking normally, clear to auscultation bilaterally, normal expiratory phase, mild upper airway wheezes with no crackles Abd: Non-distended, normal bowel sounds in all 4 quadrants, soft, non-tender, no masses, no guarding, no hepatosplenomegaly Ext: No pedal edema, 2+ radial/DP pulses Skin: Warm, dry, no rashes LABS: Last 3 wbc, hgb, hct plt Recent Labs 09/09/17 0321 09/08/17 0334 09/07/17 0401 WBC 7.8 6.3 5.6 HGB 7.7* 7.2* 7.0* HCT 23.7* 21.8* 20.5* PLATELET 245 206 162 Last 3 Lytes Recent Labs 09/09/17 0321 09/08/17 1819 09/08/17 1158 09/06/17 0833 09/06/17 0431 09/05/17 1506 09/05/17 0235 NA 140 138 141 < > 146* 146* 144 144 < > 146* < > 148* K -- -- -- -- 3.7 3.6 -- 3.9 < > 4.1 CL -- -- -- -- 111* 109* -- 114* < > 112* CO2 -- -- -- -- 26 25 -- 24 < > 23 BUN -- -- -- -- 18 16 -- -- -- 8* CREATININE -- -- -- -- 0.79* 0.75* -- -- -- 0.85 < > = values in this interval not displayed. Last Ca, Mg, Phos Recent Labs 09/08/17 0334 CALCIUM 7.8* PHOS 3.2 FSBG Trend No results for input(s): POCGLU in the last 72 hours. MICRO: No results for input(s): URINECULTURE in the last 720 hours. No results for input(s): GRAMSTAIN, BFCX, LOWERRESPCX, TISSUECX in the last 720 hours. Recent Labs 09/03/17 1756 09/03/17 1847 BLOODCX No growth at 5 days. No growth at 5 days. IMAGING: None new Assessment: 27 yo man with a history of??resection of pituitary tumor, intraoperative hemorrhage and??CVA, cognitive impairment, cortical blindness, partial L sided paralysis, seizure disorder, and panhypopituitarism (with DI, adrenal insufficiency, hypothyroidism, hypogonadism) here with a left acetabular fracture that occurred in the setting of a possible seizure. Mr. Mason continues to progress well, and is medically clear for discharge pending placement into rehab. When discharged, he will return to his previous regimen for his panhypopituitarism with endocrinology follow up. Despite his large urine output overnight, his sodium has remained stable and he does not appear volume down on exam. Reasonable to assume that the patient is drinking enough water to compensate that is not being recorded. Plan: # Acetabular fracture -underwent operative repair 09/04 -pain control with scheduled tylenol and prn po/iv dilaudid -dvt proph with lovenox -PT/OT -- NWB LLE, OK for stand pivot transfer from wheelchair per Ortho ?? # Acute blood loss anemia: Stable. Borderline threshold for need for transfusion. -CBC QD, transfuse for < 7 per guidelines -Minimize further blood draws as much as possible # Seizure d/o with breakthrough seizure after no seizures for 4 years: Stable. -s/p Zonesamide load of 400mg, now 200mg QHS per Neuro -metabolic, endocrine, infectious w/u unrevealing thus far (cxr clear, u/a negative, Bcx's NGTD, flu test negative) -appreciate Neuro input ? # Panhypopituitarism -DI: Continue ddavp bid, continue PO intake as tolerated with strict ins and outs -Adrenal insufficiency - Home hydrocortisone (20mg at 0700, 10mg at 1200 and 1900) -hypothyroid - TFT's at goal - continue levothyroxine 150 mcg -hypogonadism - will continue androgel supplementation outpatient -appreciate Endocrine input on all of the above ?? # Decreased bone mineral density -work-up in progress per Endocrinology ?? # Hypophosphatemia: Resolved ?? 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 ? IV access: piv Tubes/Drains: Morse DVT PPX: lovenox Anticipated Disposition: TBD pending clinical course ?? Goals of Care: Full Code Team Pager( Coverage 27/01): #[phone] PCP: NAKIA Cifuentes [phone] Delgado Jeffrey MD PGY-1, Internal Medicine 09/09/2017 Attending Attestation Please see Dr. Jeffrey's note for details of the patient history of presentation and data. I have discussed, reviewed and agree with the documented History, Physical findings, Assessment and Plan of care. I have examined the patient myself and personally reviewed all studies. In addition, I certify thatI am a [facility]-H credentialed attending provider with admitting privileges and that the patient meets or has met medical necessity to require an inpatient IPI level of care meeting a minimum of two midnights or is on the [facility] inpatient only procedure list (status C) due to: close monitoring of Na given DI. REN SANCHEZ III, MD * ComiChristopher MD - 09/09/2017 7:34 AM EST Images from the original note were not included. 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 Endocrinology team was asked to address his panhypopituitarism and are also addressing his current fracture. He is on oral and stable doses of levothyroxine and hydrocortisone. His DDAVP dosing is still in flux, moststable during this hospitalization on DDAVP BID. Interim Events: No events overnight per nursing staff and nursing home staff at bedside. Patients sodium remains in appropriate range. Urine output higher than previous days. Thirst levels is normal according to nursing home staff member that knows the patient well. Allergies Allergen Reactions ??? Lopid [Gemfibrozil] Current Medications: Scheduled Meds: ??? desmopressin 0.05 mg Oral BID ??? hydrocortisone 20 mg Oral QAM ??? hydrocortisone 10 mg Oral Daily at Noon ??? hydrocortisone 10 mg Oral Q24H ??? enoxaparin 40 mg Subcutaneous Nightly ??? levothyroxine 150 mcg Oral QAM ??? melatonin 3 mg Oral Nightly ??? pantoprazole 40 mg Oral QAM AC ??? QUEtiapine 250 mg Oral Nightly ??? traZODone 50 mg Oral Nightly ??? sodium chloride 0.9 % 5 mL Intravenous BID ??? zonisamide 200 mg Oral Nightly ??? acetaminophen 1,000 mg Oral Q6H CIRO Continuous Infusions: PRN Meds:.meTOPROLOL, ondansetron, polyethylene glycol (MIRALAX)oral powder, senna-docusate, sodiumchloride 0.9 %, lidocaine, naphazoline-pheniramine, HYDROmorphone, HYDROmorphone Physical Exam: BP 135/90 (BP Location (NBP): Right arm) Pulse (!) 134 Temp 37.7 ??C (99.9 ??F) (Oral) Resp 16 Ht 177.8 cm (5' 10) Wt 86.6 kg (191 lb) Comment: weight taken postoperatively using bed scalefrom unit SpO2 96% General - alert, moving around in bed, appears comfortable Mucous membranes - moist CVS - S1S2 regular Lung- clear Skin- moist and warm Assessment: Miguel Angel Mason??is a 27 y.o.male??with PMH significant for nursing home resident, 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 Endocrinology consulted for history of panhypopituitarism. Patient is currently stable on current Hydrocortisone and Levothyroxine dosing. His urine output iselevated over the past two to three days with very little documented input. His sodium however has remained stable during this change. It is possible that this patients input is not being tracked anddocumented appropriately as from our clinical assessment it appears he is drinking to thirst and maintaining his sodium level and does not appear clinically dehydrated. Plan: Panhypopituitarism: --- More strict monitoring and documentation of input for appropriate assessment of I/O every 2 hours, would recommend continuation of DDAVP BID dosing at this point --- Testosterone replacement on hold until patient in stable outpatient setting --- Continue stable dose of Levothyroxine 150 mcg daily --- Continue current dose of Hydrocortisone 20/10/10mg daily Thank you for allowing us participate in the care of this patient. Patient was discussed with the attending provider, Dr. Hess. Lindsey Walsh, DO Endocrinology, Diabetes and Metabolism Fellow 09/09/2017 7:35 AM I saw this patient with Dr Walsh . I reviewed the santos portions of the history and physical exam, and reviewed pertinent lab data.. I was involved in all medical decision making and agree with this plan. Mr Mason is producing very large amounts of urine (4-5 L a day) and has been negative 6 L over the past two days yet his serum sodium is unchanged, suggesting he is taking in a good deal of fluid that is uncharted. The question is whether his intake drives the output or his output drives the intake. Given that his nursing home has used a fluid restriction in his care it is most likely his intake is driving the output which would mean that increased DDAVP without a fluid restriction might cause hyponatremia. I think this explains his outpatient regimen of 3x a day DDAVP to reduce urine output but fluid restriction to avoid overhydration. His steroid use plus lack of weight bearing are the likely causes of his bone fragility and we willrecommend trying to reduce his steroids to 20 mg a day as an outpatient once he has healed. He might also benefit from a bisphosphonate if his steroid dose remains > 20 mg a day. * Chavez Kelsey RN - 09/08/2017 12:52 PM EST Office of Care Management Initial Assessment CHAVEZ KELSEY RN reviewed record and discussed patient with Care Team. Source of Information: eDH and care givers x 2 Introduced self/reviewed role; services accepted. Reason for Hospitalization: 27 yo man with a history of??resection of pituitary tumor, intraoperative hemorrhage and??CVA, cognitive impairment, cortical blindness, partial L sided paralysis, seizuredisorder, and panhypopituitarism (with DI, adrenal insufficiency, hypothyroidism, hypogonadism) here with a left acetabular fracture that occurred in the setting of a possible seizure. Hospitalizations Within the Past 30 Days: No Anticipated Length Of Stay (If known): TBD Current Decision-Making Capacity: sister Bettina Mason (Sibling) [id number] [facility] [id number] (H)- Advance Care Planning: not on file Current Coping/Education/Information Needs: Coping well per care givers Current Functional Ability: has not had PT yet per care givers Functional Status Prior to Admission: lives in nursing home setting on 2nd level able to ascend stairs, showers self with stand by assist r/t blindness per care givers, non communicative however the care givers seem able to understand at least some of pt's attempts of communication. Home Environment: 3 level nursing home- [facility] Social & Family Supports/Community Resources: Extended Emergency Contact Information Primary Emergency Contact: MickitomyBettina Address: [address] [place] [id number] [place] [address] Relation: Sibling Behavioral Health History: NA Substance Use/Abuse: NA Other Pertinent/Service Specific Information: unlikely be able to return to nursing home immediately Health/Prescription Coverage: Primary Insurance: Payor: [place] / Plan[place] / Product Type: *No Product type* / Secondary Insurance: Prescription Coverage: see above Preferred Pharmacy: No Pharmacies Listed Other: None Primary Care Provider: NAKIA Cifuentes [phone] Patient/Caregiver Goals of Treatment: Safe discharge Potential Needs for Transition of Care: Rehab/SNF: TBD Home Health: no DME: no Dialysis: No Community Resources: No Transportation: ambulance Other: None Anticipated Barriers to Discharge/Special Considerations: None Plan: Per discussion with care givers pt may be near facilities such as [facility], [facility] and the [facility] in [place]. CM will need to connect with sister for choices A member of the Care Management team will continue to monitor progress, follow for continuity of care and assist with transition of care planning. CHAVEZ KELSEY RN Pager: [phone] * Christopher Hess MD - 09/08/2017 11:49 AM EST Images from the original note were not included. 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 Endocrinology following this patient to address his history of panhypopituitarism. Reportedly the patient was on stable doses of replacement hormones and DDAVP prior to his admission. He has had panhypopituitarism since 2004 and has endocrinology follow up on the outpatient side. He was on Hydrocortisone 25/04/10, which he is currently on given hemodynamic stability. He did get st ress dose Hydrocortisone at [facility] and during part of his admission here. 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 The patient was taking Androgel three pumps daily for hypogonadism, reported to be 1% Androgel topical. This has not been given during this hospitalization thus far. He is also reportedly on a stable dose of DDAVP 0.05 mg TID as an outpatient with a 3L fluid restriction. According to documentation, he was stable on these chronic doses. Allergies Allergen Reactions ??? Lopid [Gemfibrozil] Current Medications: Scheduled Meds: ??? desmopressin 0.05 mg Oral BID ??? hydrocortisone 20 mg Oral QAM ??? hydrocortisone 10 mg Oral Daily at Noon ??? hydrocortisone 10 mg Oral Q24H ??? enoxaparin 40 mg Subcutaneous Nightly ??? levothyroxine 150 mcg Oral QAM ??? melatonin 3 mg Oral Nightly ??? pantoprazole 40 mg Oral QAM AC ??? QUEtiapine 250 mg Oral Nightly ??? traZODone 50 mg Oral Nightly ??? sodium chloride 0.9 % 5 mL Intravenous BID ??? zonisamide 200 mg Oral Nightly ??? acetaminophen 1,000 mg Oral Q6H CIRO Continuous Infusions: PRN Meds:.meTOPROLOL, ondansetron, polyethylene glycol (MIRALAX)oral powder, senna-docusate, sodiumchloride 0.9 %, lidocaine, naphazoline-pheniramine, HYDROmorphone, HYDROmorphone Pertinent Medications: Physical Exam: BP 141/73 (BP Location (NBP): Right arm, Patient Position: Lying) Pulse (!) 134 Temp 36.8 ??C (98.2 ??F) (Axillary) Resp 19 Ht 177.8 cm (5' 10) Wt 86.6 kg (191 lb) Comment: weight taken postoperatively using bed scale from unit SpO2 95% Sodium trend: Input/output: Assessment: Miguel Angel Mason??is a 27 yea r oldmale??with PMH significant for 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 A main concern during this hospitalization has been his underlying DI. The patients home dose of DDAVP is 0.05 mg TID with a 3L fluid restriction for his history of polydipsia, reportedly in his nursing home as effective and managed by Dr. Zaidi at [facility]. During this hospitalization his sodium down trended to 128 with low urine output which suggested to our team that this was related to over replacement with DDAVP. It was recommended to decrease his dose of DDAVP to 0.05 mg BID on 09/04/2017. He has remained on this dosing since that point. On 09/06/2017 the patient developed slightly elevated sodium with low urine output which was thought to be related to a free water deficit. The free water was replaced by the primary team. The patients sodium is now 143. His urine output is curious at this point as around 23:00 last night he had approximately 1.2 L output. This suggests that his DDAVP dosing may need slight adjustment. His sodium is stable at this point. Another endocrinologic concern is this patients current acetabulum fracture. It is being presumed that he may have suffered a pathologic fracture as he indured minimal trauma at the time of this fracture. Possible differentials at the time of his workup included vitamin D deficiency however his Vitamin D was 37 with a normal PTH and normal alkaline phosphatase. He did however demonstrate criticall y low phosphate of 1.1 brining up the possibility of hypophosphatemic osteomalacia. For this [id number] hour urine studies of calcium, creatinine and phosphorus have been requested. The patient is still undergoing this testing currently. Plan: Panhypopituitarism: --- Monitor DI for possible need for dose adjustment of DDAVP (may be requiring increase dose as indicated by his urine output last night) --- No need for testosterone replacement at this current time, will evaluate outpatient regimen (1%vs 1.62% Androgel for accuracy of dosing) but currently unsure when last dose was --- Continue stable dose of Levothyroxine 150 mcg daily --- Continue current dose of Hydrocortisone 20/10/10mg daily Fracture, possibly pathologic? Calcium replacement currently being held for 24 urine collection. 24 hour collection of calcium, creatinine and phosphorus concluding at 6 pm this evening. This is a recollection as the first collection was unlabeled. Thank you for allowing us participate in the care of this patient. Patient was discussed with the attending provider, Dr. Hess. Lindsey Walsh, Endocrinology, Diabetes and Metabolism Fellow 09/08/2017 11:49 AM I saw this patient with Dr Walsh . I reviewed the santos portions of the history and physical exam, and reviewed pertinent lab data. I answered all patient questions. I was involved in all medical decision making and agree with this plan. This patient had a severe fracture of his acetabulum that occurred without trauma but possibly in the context of a seizure. He has established panhypopituitarismwhich has been treated with slightly higher than usual cortisol doses that may have led to bone fragility/osteoporosis, in addition we are uncertain of his testosterone replacement (the levels drawn here were after several days off androgel and are low on that account.He also had a curiously very low phosphate on admission, now repleted suggesting nutritional deficiency and/or vit D deficiency orphosphaturia which is being evaluated. For unclear reasons he occasionally bumps up his urine output, causing a rise in serum Na- but this appears to have been restored to normal for the present. Going forward we will advise on an outpatient steroid and DDAVP schedule, recommend a dexa scan andhe may ultimately benefit from a bisphosphonate when healed. * Ren Sanchez III, MD - 09/08/2017 8:25 AM EST [facility] Medicine Attending Daily Progress Note Admit Date: 09/02/2017 Hospital Day 6 days ID 27 yo man with a history of??resection of pituitary tumor, intraoperative hemorrhage and??CVA, cognitive impairment, cortical blindness, partial L sided paralysis, seizure disorder, and panhypopituitarism (with DI, adrenal insufficiency, hypothyroidism, hypogonadism) here with a left acetabular f racture that occurred in the setting of a possible seizure. Interval History: -No acute events overnight -Large net output (-3.2L) in last 24 hrs -Hgb stable -No IV PRN Dilaudid in last 18hrs Review of Systems: Positive in BOLD, rest negative Constitutional: fevers, chills, fatigue, weight gain, weight loss, night sweats Neuro: headaches, confusion, seizures, visual changes, weakness, numbness, HEENT: Nose bleeds, sores in mouth, dysphagia, odynophagia Resp: Dyspnea, cough, hemoptysis, wheezing CV: Chest pain, palpitations, loss of conscioussness GI: Nausea, Vomitting, diarrhea, constipation, blood in stools : Dark urine, hematuria, dysuria MSK: Joint pain, Joint swelling, back pain Endocrine: ployuria/polydipsia, heat/cold intolerance Hematologic: excessive bleeding, easy bruising, fatigue, pallor Physical Exam Vitals Range last 24 hrs Temperature Temp: [36.7 ??C (98.1 ??F)-37.2 ??C (99 ??F)] Heart Rate Heart Rate: -- Blood Pressure BP: (102-144)/(64-81) Respiratory Rate Resp: [16-18] SpO2 SpO2: [89 %-100 %] Intake/Output Summary (Last 24 hours) at 09/08/17 0825 Last data filed at 09/08/17 0600 Gross per 24 hour Intake 1609 ml Output 4575 ml Net -2966 ml Patient Vitals for the past 168 hrs: Weight 09/04/17 1300 86.6 kg (191 lb) Gen: NAD, lying in bed, able to respond to questions HEENT: Oropharynx clear, moist mucus membranes CV: Tachycardic rate, regular rhythm, 2/6 systolic murmur that doesn't radiate to the carotids withno rubs/gallops Pulm: Normal respiratory effort, speaking normally, clear to auscultation bilaterally, normal expiratory phase, mild upper airway wheezes with no crackles Abd: Non-distended, normal bowel sounds in all 4 quadrants, soft, non-tender, no masses, no guarding, no hepatosplenomegaly Ext: No pedal edema, 2+ radial/DP pulses Skin: Warm, dry, no rashes Lymph: no cervical/supraclav/axillary/inguinal nodes Neuro: CN 2-12 intact, strength 5/5 in UE and LE b/l, no sensory deficits noted Studies reviewed in eDH. Remarkable for the following: LABS: Last 3 wbc, hgb, hct plt Recent Labs 09/08/17 0334 09/07/17 0401 09/06/17 0833 WBC 6.3 5.6 7.0 HGB 7.2* 7.0* 7.8* HCT 21.8* 20.5* 23.4* PLATELET 206 162 149 Last 3 Lytes Recent Labs 09/08/17 0334 09/07/17 1220 09/07/17 0401 09/06/17 0833 09/06/17 0431 09/05/17 1506 09/05/17 0235 NA 143 140 141 < > 146* 146* 144 144 < > 146* < > 148* K -- -- -- -- 3.7 3.6 -- 3.9 < > 4.1 CL -- -- -- -- 111* 109* -- 114* < > 112* CO2 -- -- -- -- 26 25 -- 24 < > 23 BUN -- -- -- -- 18 16 -- -- -- 8* CREATININE -- -- -- -- 0.79* 0.75* -- -- -- 0.85 < > = values in this interval not displayed. Last Ca, Mg, Phos Recent Labs 09/08/17 033 CALCIUM 7.8* PHOS 3.2 FSBG Trend No results for input(s): POCGLU in the last 72 hours. MICRO: No results for input(s): URINECULTURE in the last 720 hours. No results for input(s): GRAMSTAIN, BFCX, LOWERRESPCX, TISSUECX in the last 720 hours. Recent Labs 09/03/17 1756 09/03/17 1847 BLOODCX No growth at 4 days. No growth at 4 days. IMAGING: None new Assessment: 27 yo man with a history of??resection of pituitary tumor, intraoperative hemorrhage and??CVA, cognitive impairment, cortical blindness, partial L sided paralysis, seizure disorder, and panhypopituitarism (with DI, adrenal insufficiency, hypothyroidism, hypogonadism) here with a left acetabular fracture that occurred in the setting of a possible seizure. Overall, Mr. Mason has progressed well since his procedure and will be appropriate for discharge over the next 24-48 hours. Will convert his stress dose replacement to his regular home medications. His recent increase in urine output is concerning for inappropriate ddavp dosing, although it is possible it's a normal response tothe increased fluids given yesterday. Will continue to trend sodium Q8H, and if it continues to increase can increase his ddavp from BID to his prior TID dosing. His murmur heard on exam today is likely a flow murmur secondary to his tachycardia and anemia, but will continue to monitor. Do not suspect endocarditis at this time given his continued improve and non-toxic appearance. Plan: # Acetabular fracture -underwent operative repair 09/04 -pain control with scheduled tylenol and prn po/iv dilaudid -dvt proph with lovenox -PT/OT -- NWB LLE, OK for stand pivot transfer from wheelchair per Ortho ?? # Acute blood loss anemia: Stable. Borderline threshold for need for transfusion. -CBC QD, transfuse for < 7 per guidelines -Minimize further blood draws as much as possible # Seizure d/o with breakthrough seizure after no seizures for 4 years: Stable. -s/p Zonesamide load of 400mg, now 200mg QHS per Neuro -metabolic, endocrine, infectious w/u unrevealing thus far (cxr clear, u/a negative, Bcx's NGTD, flu test negative) -appreciate Neuro input ? # Panhypopituitarism -DI: Continue ddavp bid, continue PO intake, check Sodium TID -Adrenal insufficiency - Home hydrocortisone (20mg at 0700, 10mg at 1200 and 1900) -hypothyroid - TFT's at goal - continue levothyroxine 150 mcg -hypogonadism - Continue androgel, testosterone levels low -appreciate Endocrine input on all of the above ?? # Decreased bone mineral density -work-up in progress per Endocrinology ?? # Hypophosphatemia: Resolved ?? # Sinus Tach: stable -likely partly due to autonomic instability related to hx of [employer] insults described above. ? IV access: piv Tubes/Drains: Morse DVT PPX: lovenox Anticipated Disposition: TBD pending clinical course ?? Goals of Care: Full Code Team Pager(MD Coverage 27/01): #[phone] PCP: NAKIA Cifuentes [phone] Delgado Jeffrey MD PGY-1, Internal Medicine 09/08/2017 Attending Attestation Please see Dr. Jeffrey's note for details of the patient history of presentation and data. I have discussed, reviewed and agree with the documented History, Physical findings, Assessment and Plan of care. I have examined the patient myself and personally reviewed all studies. In addition, I certify thatI am a D-H credentialed attending provider with admitting privileges and that the patient meets or has met medical necessity to require an inpatient IPI level of care meeting a minimum of two midnights or is on the [facility] inpatient only procedure list (status C) due to: monitoring of fluid status given an inability to regulate fluid balance and the need for administration or restriction of fluids. REN SANCHEZ III, MD * Desean De Oliveira W - 09/08/2017 6:11 AM EST Orthopaedic Surgery Progress Note Surgery/Issue: Procedure(s): ORIF left acetabulum Attending: Dr. Lance Date of surgery: 09/04/2017 Subjective/Events: Doing well, no issues per nursing. Mr. Mason is resting in bed comfortably. Objcetive: Temp: [36.4 ??C (97.5 ??F)-37.2 ??C (99 ??F)] Resp: [16-18] BP: (102-144)/(64-81) Intake/Output Summary (Last 24 hours) at 09/08/17 0612 Last data filed at 09/08/17 0528 Gross per 24 hour Intake 1259 ml Output 4825 ml Net -3566 ml Lab Results Component Value Date NA 143 09/08/2017 K 3.7 09/06/2017 CL 111 (H) 09/06/2017 CO2 26 09/06/2017 BUN 18 09/06/2017 CREATININE 0.79 (L) 09/06/2017 GLUCOSE 72 09/06/2017 CALCIUM 7.8 (L) 09/08/2017 Lab Results Component Value Date WBC 6.3 09/08/2017 HGB 7.2 (L) 09/08/2017 HCT 21.8 (L) 09/08/2017 MCV 82.6 (L) 09/08/2017 PLATELET 206 09/08/2017 Lab Results Component Value Date INR 1.1 09/03/2017 Exam: General: NAD, somnolent, responds to questions with head nod/shake CV: RRR Resp: Breathing comfortably, lungs CTAB LLE: Anterior pelvic/left lower abdominal dressing with SS saturation throughout. Mepilex on lateral legx2 c/d/i Unable to assess motor/sensory He moves LLE spontaneously, wiggles toes Palpable DP/PT Radiology: XR Pelvis 09/08/2017 FINDINGS: There was interval open reduction and internal fixation of the previously described left ischial and acetabular fracture with multiple [id number] constructs. Tubing that could represent a surgical drain is seen with its tip projecting over the left iliac region. Additional tubing is faintly seen projecting over the midline pelvis. Fracture alignment is improved and appears near-anatomic. The sacrum is largely obscured by overlying bowel gas and stool. A/P: 27 y.o. male POD#4 s/p ORIF left acetabular fx. Progressing well post operatively. Further care per medicine, plan to work with PT/OT. Activity: NWB LLE, OK for stand pivot transfer on right leg only DVT prophylaxis: lovenox Closure: Carisa (to be removed at Orthopaedic follow-up appointment) Dressing: Mepilex x 7 days Antibiotics: Ancef x24 hours edna-op, complete Future Appointments Date Time Provider Department Center 09/19/2017 2:15 PM [facility] DX ROOM 1 X[facility] 09/19/2017 3:10 PM Amy Lance MD [facility] Associated attestation - Amy Lance MD - 09/16/2017 6:11 AM EDT Agree with resident note. Mandy Lance MD Department of Orthopaedics 09/16/17 * Rosie Marinelli, RN - 09/07/2017 6:01 PM EST Patient stable this shift. Caregiver at bedside. Intermittently uncomfortable; PO medications utilized and x 1 IV dilaudid given for persistent moaning. Patient's mepilex dressing removed by patient; replaced by nurse. OT hand golf ball winder given for distraction. 24 hour urine commence at 0700 although needs to be [id number] r/t mistaken interpretation of a discontinued order from 09/06 not 09/07. Replaced calcium per orders. HEATHER Mascorro managing patient's care at nursing home is instructed to call Bettina (guardian and sister) for further updates. Bowel movement x 3, soft. Utilizing brief so patient does not touch BM. Frequent incontinence checks. Morse. * Ren Sanchez III, MD - 09/07/2017 2:37 PM EST Hospital Medicine Attending Daily Progress Note Admit Date: 09/02/2017 Hospital Day 5 days Active Hospital Problems Diagnosis ??? S/P ORIF left acetabulum fracture 09/04/2017 Dr. Lance ??? Postoperative anemia due to acute blood loss ??? Diabetes insipidus ??? Adrenal insufficiency ??? Panhypopituitarism ??? Seizure disorder ??? Hypothyroidism Resolved Hospital Problems Diagnosis Date Resolved No resolved problems to display. PMH Active Non-Hospital Problems Diagnosis ??? Insomnia ??? Blind ??? CVA (cerebral vascular accident) ??? Urinary incontinence Inpatient Medications: Scheduled ??? desmopressin 0.05 mg Oral BID ??? hydrocortisone 20 mg Oral QAM ??? hydrocortisone 10 mg Oral Daily at Noon ??? hydrocortisone 10 mg Oral Q24H ??? enoxaparin 40 mg Subcutaneous Nightly ??? levothyroxine 150 mcg Oral QAM ??? melatonin 3 mg Oral Nightly ??? pantoprazole 40 mg Oral QAM AC ??? QUEtiapine 250 mg Oral Nightly ??? traZODone 50 mg Oral Nightly ??? sodium chloride 0.9 % 5 mL Intravenous BID ??? zonisamide 200 mg Oral Nightly ??? acetaminophen 1,000 mg Oral Q6H CIRO Continuous infusions: PRN: meTOPROLOL, ondansetron, polyethylene glycol (MIRALAX)oral powder, senna- docusate, sodium chloride 0.9 %, lidocaine, naphazoline-pheniramine, HYDROmorphone, HYDROmorphone Interval History / ROS: - No new events overnight - slept well, ate breakfast - Na stable, 1/2 NS down to 50 cc/hr overnight - Unable to obtain ROS given his difficulty with providing appropriate responses Physical Exam Vitals Range last 24 hrs Temperature Temp: [36.3 ??C (97.3 ??F)-36.8 ??C (98.2 ??F)] Heart Rate Heart Rate: -- Blood Pressure BP: (111-129)/(70-75) Respiratory Rate Resp: [16-18] SpO2 SpO2: [98 %-100 %] Intake/Output Summary (Last 24 hours) at 09/07/17 1437 Last data filed at 09/07/17 1258 Gross per 24 hour Intake 3081 ml Output 1725 ml Net 1356 ml Patient Vitals for the past 168 hrs: Weight 09/04/17 1300 86.6 kg (191 lb) There is no height or weight on file to calculate BMI. Physical Exam Sleeping but arousable Anicteric RRR, no m/r/g CTAB anteriorly Mild-moderately distended, nontender No edema, feet a little mottled (reportedly chronic), L thigh dressings c/d/i Studies reviewed in eDH. Remarkable for the following: LABS: Last 3 wbc, hgb, hct plt Recent Labs 09/07/17 0401 09/06/17 0833 09/06/17 0431 WBC 5.6 7.0 6.6 HGB 7.0* 7.8* 7.4* HCT 20.5* 23.4* 22.2* PLATELET 162 149 153 Last 3 Lytes Recent Labs 09/07/17 1220 09/07/17 0401 09/06/17 2327 09/06/17 0833 09/06/17 0431 09/05/17 1506 09/05/17 0235 NA 140 141 144 < > 146* 146* 144 144 < > 146* < > 148* K -- -- -- -- 3.7 3.6 -- 3.9 < > 4.1 CL -- -- -- -- 111* 109* -- 114* < > 112* CO2 -- -- -- -- 26 25 -- 24 < > 23 BUN -- -- -- -- 18 16 -- -- -- 8* CREATININE -- -- -- -- 0.79* 0.75* -- -- -- 0.85 < > = values in this interval not displayed. Last 3 LFTs Recent Labs 09/04/17 0358 AST 23 ALT 31 ALKPHOS 75 BILITOT 0.5 BILIDIR 0.1 Last Ca, Mg, Phos Recent Labs 09/06/17 2327 CALCIUM 7.6* PHOS 3.4 Last 3 TFT Recent Labs 09/03/17 0622 TSH 0.01* FSBG Trend Recent Labs 09/04/17 1900 POCGLU 132 MICRO: No results for input(s): URINECULTURE in the last 720 hours. No results for input(s): GRAMSTAIN, BFCX, LOWERRESPCX, TISSUECX in the last 720 hours. Recent Labs 09/03/17 1756 09/03/17 1847 BLOODCX No growth at 3 days. No growth at 3 days. ECG: Recent Labs 09/04/17 2230 DIAGLINE Sinus tachycardia Nonspecific ST abnormality Abnormal ECG No previous ECGs available Confirmed by MD Scottie, Sally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 normal rate, regular rhythm, normal S1, S2, no murmurs, rubs, clicks or gallops Abdomen - soft, nontender, nondistended, no masses or organomegaly Musculoskeletal - no joint tenderness, deformity or swelling Extremities - peripheral pulses normal, no pedal edema, no clubbing or cyanosis Skin - normal coloration and turgor, no rashes, no suspicious skin lesions noted Labs: Ref. Range 09/06/2017 08:33 Sodium Latest Ref Range: 135 - 145 mmol/L 146 (H) Potassium Latest Ref Range: 3.5 - 5.0 mmol/L 3.7 Chloride Latest Ref Range: 98 - 107 mmol/L 111 (H) CO2 Latest Ref Range: 22 - 31 mmol/L 26 Anion Gap Latest Ref Range: 5 - 15 mmol/L 9 BUN Latest Ref Range: 10 - 20 mg/dL 18 Creatinine Latest Ref Range: 0.80 - 1.50 mg/dL 0.79 (L) Estimated GFR Latest Ref Range: >=60 >60 Glucose Lvl Latest Ref Range: 65 - 199 mg/dL 72 Calcium Latest Ref Range: 8.5 - 10.5 mg/dL 8.1 (L) Ref. 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 ? We were consulted to give recommendations regarding hypopituitarism (adrenal insufficiency, hypothyroidism, DI and hypogonadism). Regarding hypopituitarism his main active issue is Na imbalance: * this morning again Na a little elevated with low urine output (this would go against active DI but most likely free water deficit). For DI history recommend to continue BID DDAVP 0.05 mg and trend the Na Q4H. It seems his Na up trended in the setting of free water deficit (seen with low urine output). To bring him to a Na 140, he has a free water deficit of 1,000 mL), he might benefit from somehypotonic fluid (for example 1/2 NSS at 85 mL/hr - that would provide 2,000 mL a day and would bring him to Na of 140 in 24 hours. ?? * For adrenal insufficiency, continue hydrocortisone 50 mg IV every 12 hours and can change back toprior to admission 20 mg morning, 10 mg noon and 10 mg afternoon tomorrow (ordered). ?? * For central hypothyroidism, he is euthyroid on current dose of levothyroxine, continue the same dose ?? * For hypogonadism we are waiting for testosterone and free testosterone and we will decided of best route for replacement Regarding the fracture, vitamin D is normal. We recommend replacing phosphorus and calcium (calciumcitrate 950 mg TID) and trending phosphorus and citrate every 8 hours (ordered). For other causes of hypophosphatemia (for example phosphorus wasting conditions), a 24 hour phosphate/Calcium/creatinine collection was ordered and being collected. ?? Thank you for allowing us participate in the care of this patient. Patient will be seen and discussed with Dr. Toney. Guerrero Tillman MD Endocrinology, Diabetes and Metabolism Fellow Pager #[phone] 09/06/2017 Associated attestation - Genevieve Page MD - 09/06/2017 12:20 PM EST I saw this patient with Dr. Niles Tillman. I reviewed the santos portions of the history and physical exam, and reviewed pertinent lab data. I answered all patient questions. I was involved in all medical decision making and agree with this plan. Current borderline hypernatremia with low-normal urine output suggests ongoing free water deficit. Recommend additional IVF bolus as outlined in fellows' note. Phosphorus is now normalized s/p IV KPhos repletion. Corrected serum calcium is 9.3. Can consider cutting back calcium citrate to once daily. Will await 24 urine phos, calcium, and creatinine to evaluate renal phosphate wasting. Stress dose hydrocortisone decreased to 50mg IV q12h today. Will plan taper to double his home dosetomorrow if he remains stable. GENEVIEVE PAGE MD Engagement Engineerintensive care specialist Section of Endocrinology [facility] [place] * De OliveiraDesean - 09/06/2017 6:23 AM EST Orthopaedic Surgery Progress Note Surgery/Issue: Procedure(s): ORIF left acetabulum Attending: Dr. Lance Date of surgery: 09/04/2017 Subjective/Events: NAEON, appears more comfortable today. Both drains are now out. No issues per nursing. Hb is 7.4 this morning. Objcetive: Temp: [35.8 ??C (96.4 ??F)-37.1 ??C (98.8 ??F)] Resp: [16-24] BP: (120-141)/(71-87) Intake/Output Summary (Last 24 hours) at 09/06/17 0624 Last data filed at 09/06/17 0543 Gross per 24 hour Intake 5131 ml Output 1440 ml Net 3691 ml Lab Results Component Value Date NA 144 09/06/2017 NA 144 09/06/2017 K 3.6 09/06/2017 CL 109 (H) 09/06/2017 CO2 25 09/06/2017 BUN 16 09/06/2017 CREATININE 0.75 (L) 09/06/2017 GLUCOSE 92 09/06/2017 CALCIUM 7.7 (L) 09/06/2017 CALCIUM 7.7 (L) 09/06/2017 Lab Results Component Value Date WBC 6.6 09/06/2017 HGB 7.4 (L) 09/06/2017 HCT 22.2 (L) 09/06/2017 MCV 81.6 (L) 09/06/2017 PLATELET 153 09/06/2017 Lab Results Component Value Date INR 1.1 09/03/2017 Exam: General: NAD, somnolent, responds to questions with head nod/shake CV: RRR Resp: Breathing comfortably, lungs CTAB LLE: Anterior pelvic/left lower abdominal dressing c/d/i. Mepilex on lateral leg x2 c/d/i Unable to assess motor/sensory He moves LLE spontaneously, wiggles toes Palpable DP/PT Radiology: XR Pelvis 09/06/2017 FINDINGS: There was interval open reduction and internal fixation of the previously described left ischial and acetabular fracture with multiple [id number] constructs. Tubing that could represent a surgical drain is seen with its tip projecting over the left iliac region. Additional tubing is faintly seen projecting over the midline pelvis. Fracture alignment is improved and appears near-anatomic. The sacrum is largely obscured by overlying bowel gas and stool. A/P: 27 y.o. male POD#2 s/p ORIF left acetabular fx. Progressing well post operatively. Further care per medicine, plan to work with PT/OT. Activity: NWB LLE, OK for stand pivot transfer on right leg only DVT prophylaxis: lovenox Closure: Carisa (to be removed at Orthopaedic follow-up appointment) Dressing: Mepilex x 7 days Antibiotics: Ancef x24 hours edna-op Future Appointments Date Time Provider Department Center 09/19/2017 2:15 PM [facility] DX ROOM 1 [facility] 09/19/2017 3:10 PM Amy Lance MD [facility] Associated attestation - Amy Lance MD - 09/16/2017 6:11 AM EDT Agree with resident note. Mandy Lance MD Department of Orthopaedics 09/16/17 * Fran Gilliam MD - 09/05/2017 8:09 PM EST Hospital Medicine Attending Daily Progress Note Admit Date: 09/02/2017 Hospital Day 3 days Active Hospital Problems Diagnosis ??? S/P ORIF left acetabulum fracture 09/04/2017 Dr. Lance ??? Postoperative anemia due to acute blood loss ??? Diabetes insipidus ??? Adrenal insufficiency ??? Panhypopituitarism ??? Seizure disorder ??? Insomnia ??? Hypothyroidism Resolved Hospital Problems Diagnosis Date Resolved No resolved problems to display. PM Active Non-Hospital Problems Diagnosis ??? Blind ??? CVA (cerebral vascular accident) ??? Urinary incontinence Inpatient Medications: Scheduled ??? desmopressin 0.05 mg Oral BID ??? bolus IV fluid Intravenous Once ??? calcium citrate 950 mg Oral TID ??? hydrocortisone 50 mg Intravenous Q12H ??? [START ON 09/07/2017] hydrocortisone 20 mg Oral QAM ??? [START ON 09/07/2017] hydrocortisone 10 mg Oral Daily at Noon ??? [START ON 09/07/2017] hydrocortisone 10 mg Oral Q24H ??? enoxaparin 40 mg Subcutaneous Nightly ??? levothyroxine 150 mcg Oral QAM ??? melatonin 3 mg Oral Nightly ??? pantoprazole 40 mg Oral QAM AC ??? QUEtiapine 250 mg Oral Nightly ??? traZODone 50 mg Oral Nightly ??? sodium chloride 0.9 % 5 mL Intravenous BID ??? zonisamide 200 mg Oral Nightly ??? acetaminophen 1,000 mg Oral Q6H CIRO Continuous infusions: PRN: meTOPROLOL, ondansetron, polyethylene glycol (MIRALAX)oral powder, senna- docusate, sodium chloride 0.9 %, lidocaine, naphazoline-pheniramine, HYDROmorphone, HYDROmorphone Interval History / ROS: -persistently tachycardic -denies any pain or anything else bothering him and appears comfortable -tired today Physical Exam Vitals Range last 24 hrs Temperature Temp: [36.8 ??C (98.2 ??F)-37.1 ??C (98.8 ??F)] Heart Rate Heart Rate: [134] Blood Pressure BP: (104-141)/(61-87) Respiratory Rate Resp: [17-24] SpO2 SpO2: [93 %-99 %] Intake/Output Summary (Last 24 hours) at 09/05/172008 Last data filed at 09/05/17 1600 Gross per 24 hour Intake 5131 ml Output 4400 ml Net 731 ml Patient Vitals for the past 168 hrs: Weight 09/04/17 1300 86.6 kg (191 lb) There is no height or weight on file to calculate BMI. Physical Exam Appears tired but comfortable, smiling, giving the thumbs up Anicteric MM somewhat dry Tachy, regular, no murmur CTAB anteriorly Mild-moderately distended but less so today and softer today, nontender No edema, feet a little mottled (reportedly chronic), L thigh dressings c/d/i Studies reviewed in eDH. Remarkable for the following: LABS: Last 3 wbc, hgb, hct plt Recent Labs 09/05/17 0235 09/04/17 1549 09/04/17 1115 WBC 8.6 8.2 14.1* HGB 10.9* 11.0* 11.1* 9.3* HCT 31.5* 33.3* 33.0* 26.7* PLATELET 169 118* 193 Last 3 Lytes Recent Labs 09/05/17 1908 09/05/17 1506 09/05/17 1129 09/05/17 0235 09/04/17 0358 09/03/17 0622 NA 145 146* 148* 148* < > 128* 136 K -- 3.9 4.1 4.1 < > 4.1 4.2 CL -- 114* 113* 112* < > 95* 99 CO2 -- 24 24 23 < > 22 26 BUN -- -- -- 8* -- 12 10 CREATININE -- -- -- 0.85 -- 0.73* 0.99 < > = values in this interval not displayed. Last 3 LFTs Recent Labs 09/04/17 0358 AST 23 ALT 31 ALKPHOS 75 BILITOT 0.5 BILIDIR 0.1 Last Ca, Mg, Phos Recent Labs 09/05/17 1908 CALCIUM 7.4* PHOS 2.0* Last 3 Coags Recent Labs 09/03/17 0054 PT 13.6 INR 1.1 PTT 26 Last 3 TFT Recent Labs 09/03/17 0622 TSH 0.01* FSBG Trend Recent Labs 09/04/17 1900 POCGLU 132 MICRO: No results for input(s): URINECULTURE in the last 720 hours. No results for input(s): GRAMSTAIN, BFCX, LOWERRESPCX, TISSUECX in the last 720 hours. Recent Labs 09/03/17 1756 09/03/17 1847 BLOODCX No growth at 1 day. No growth at 1 day. ECG: Recent Labs 09/04/17 2230 DIAGLINE Sinus tachycardia Nonspecific ST abnormality Abnormal ECG No previous ECGs available Confirmed by MD Scottie, Sally ([id number]) on 09/05/2017 3:49:31 PM QTCCALC 429 VASCULAR: No results for input(s): VBTEXTRPT in the last 720 hours. Imaging XR Pelvis Judet or In Out 3 views Redemonstrated LEFT acetabular fracture extending into the ischium with acetabular protrusio, without appreciable change in alignment. ? Assessment 27 yo man with a history of resection of pituitary tumor, intraoperative hemorrhage and CVA, cognitive impairment, cortical blindness, partial L sided paralysis, seizure disorder, and panhypopituitarism (with DI, adrenal insufficiency, hypothyroidism, hypogonadism) here with a left acetabular fractu re that occurred in the setting of a seizure. Underwent surgical repair of acetabular fx 09/04 - apparently had large intraoperative blood loss of 1500 cc and was resuscitated with 2 u PRBC's. Has since been relatively stable and doing well. Na has been a little bit of a moving target, that may require some ongoing titration of his ddAVP (chronic maintenance dose is 0.05 mg po TID). Has also had persistent sinus tach -- does not seem to have uncontrolled pain or anxiety, not particularly anemic, no fever -- may be a little hypovolemic, so giving some fluid boluses today, but thetachycardia is likely also partly due to autonomic instability related to the aforementioned hx of [employer] insults. ?? Plan # Acetabular fracture -underwent operative repair 09/04 -drains now removed -pain control with scheduled tylenol and prn po/iv dilaudid -dvt proph with lovenox -PT/OT -- NWB LLE, OK for stand pivot transver from wheelchair per Ortho # Acute blood loss anemia, hypotension -received 2 u PRBC's intra-op - repeat Hgb post-op improved from 9.3 to 11.1 -monitor Hemodynamics and Hgb closely - resuscitate with IVF and PRBC's as indicated -increased stress dose steroids (see below) -now HD stable w/ stable Hgb ?? # Seizure d/o with breakthrough seizure after no seizures for 4 years -zonisamide level pending -loaded with zonisamide 400 mg and maintenance dose increased from 100 mg to 200 mg per Neuro -metabolic, endocrine, infectious w/u unrevealing thus far (cxr clear, u/a negative, Bcx's NGTD, flu test negative) -appreciate Neuro input ?? # Panhypopituitarism -DI - Na previously dipped to 128 on his usual tid ddAVP dosing - currently getting 0.05 BID and Nais now on the high side - monitor Na levels closely, and adjust ddAVP as indicated per Endocrinology rec's -Adrenal insufficiency - given operative blood loss and associated hemodynamic instability, increased stress dose steroids from hydrocortisone 50 mg IV q8h to 100 mg IV q8hr - can likely start to taper down tomorrow -hypothyroid - TFT's at goal - continue levothyroxine 150 mcg -hypogonadism - on androgel as outpt, testosterone levels pending -appreciate Endocrine input on all of the above # Decreased bone mineral density -work-up in progress per Endocrinology # Sinus Tach -giving a fluid challenge today for possible component of hypovolemia (using 1/2 NS due to Na beingon the high side) - monitor clinical response -likely partly due to autonomic instability related to hx of [employer] insults described above. ?? IV access: piv Tubes/Drains: morse DVT PPX: lovenox Anticipated Disposition: TBD pending clinical course Goals of Care: Full Code Team Pager(MD Coverage 27/01): [phone] PCP: NAKIA Cifuentes [phone] Attestation: IPI Certification I certify that I am a D-H credentialed attending provider with admitting privileges and that the patient meets or has met medical necessity to require an inpatient IPI level of care meeting a minimumof two midnights or is on the [facility] inpatient only procedure list (status C) due to: Acetabular fracture in patient with panhypopituitarism requiring operative repair and post-operative mgmt as above. FRAN GILLIAM MD 09/05/2017 * Guerrero Bah MD - 09/05/2017 1:05 PM EST Images from the original note were not included. 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 ?? We were consulted to give recommendations regarding hypopituitarism (adrenal insufficiency, hypothyroidism, DI and hypogonadism). New events since last time seen: Patient was taken to the OR yesterday. We followed sodium yesterday and it fluctuated from 129 (at 3:49 pm) to 137 at 7:23 pm (she had increased urine output in the afternoon suggesting DI). After Na trended up we restarted the DDAVP 0.05 mg twice daily (first dose last night). Na increased even further to 148. This morning, primary team had decided to change DDAVP to 0.05 mg TID (instead of BID) although in the past with this replacement (TID dosing), his Na decreased (which probably means that is too much DDAVP) and we recommended changing it back to BID. After 3 am this morning urine output decreased significantly from 450 mL/hr to 100 mL/hr and then to 50 mL/hr. Sodium this morning 148 mmol/L at 11:29 am. Patient was seen at the bedside. Per the caregiver at the bedside he is less alert and awake than at nursing home. She was telling me sister wants to speak with us as she feels he should be on DDAVP three times a day instead of twice a day. Caregiver confirmed at nursing home they were fluid restricting him to 100 mL/day. No past medical history on file. No past surgical history on file. No family history on file. Current Medications: Scheduled Meds: ??? bolus IV fluid Intravenous Once ??? desmopressin 0.05 mg Oral BID ??? enoxaparin 40 mg Subcutaneous Nightly ??? hydrocortisone 100 mg Intravenous Q8H ??? levothyroxine 150 mcg Oral QAM ??? melatonin 3 mg Oral Nightly ??? pantoprazole 40 mg Oral QAM AC ??? QUEtiapine 250 mg Oral Nightly ??? traZODone 50 mg Oral Nightly ??? sodium chloride 0.9 % 5 mL Intravenous BID ??? zonisamide 200 mg Oral Nightly ??? acetaminophen 1,000 mg Oral Q6H CIRO Continuous Infusions: PRN Meds:.vancomycin, meTOPROLOL, ondansetron, polyethylene glycol (MIRALAX)oral powder, senna-docusate, calcium carbonate, sodium chloride 0.9 %, lidocaine, naphazoline-pheniramine, HYDROmorphone, HYDROmorphone Allergies Allergen Reactions ??? Lopid [Gemfibrozil] Physical Exam: BP 141/87 (BP Location (NBP): Right arm, Patient Position: Lying) Pulse (!) 134 Temp 36.8 ??C (98.2 ??F) (Oral) Resp 19 Wt 86.6 kg (191 lb) Comment: weight taken postoperatively using bed scale from unit SpO2 93% General appearance - following commands, drowsy Mouth - mucous membranes moist, pharynx normal without lesions Neck - supple, no significant adenopathy Chest - clear to auscultation, no wheezes, rales or rhonchi, symmetric air entry Heart - normal rate, regular rhythm, normal S1, S2, no murmurs, rubs, clicks or gallops Abdomen - abdominal wound Neurological - alert and oriented to person and place, not time Extremities - peripheral pulses normal, no pedal edema, no clubbing or cyanosis Skin - normal coloration and turgor, no rashes, no suspicious skin lesions noted Labs: Results for MIGUEL ANGEL MASON ( ) as of 09/05/2017 13:27 Ref. Range 09/05/2017 11:29 Sodium Latest Ref Range: 135 - 145 mmol/L 148 (H) Potassium Latest Ref Range: 3.5 - 5.0 mmol/L 4.1 Chloride Latest Ref Range: 98 - 107 mmol/L 113 (H) CO2 Latest Ref Range: 22 - 31 mmol/L 24 Anion Gap Latest Ref Range: 5 - 15 mmol/L 11 Ref. Range 09/05/2017 02:35 09/05/2017 04:16 Sodium Latest Ref Range: 135 - 145 mmol/L 148 (H) Potassium Latest Ref Range: 3.5 - 5.0 mmol/L 4.1 Chloride Latest Ref Range: 98 - 107 mmol/L 112 (H) CO2 Latest Ref Range: 22 - 31 mmol/L 23 Anion Gap Latest Ref Range: 5 - 15 mmol/L 13 BUN Latest Ref Range: 10 - 20 mg/dL 8 (L) Creatinine Latest Ref Range: 0.80 - 1.50 mg/dL 0.85 Estimated GFR Latest Ref Range: >=60 >60 Glucose Lvl Latest Ref Range: 65 - 199 mg/dL 203 (H) Calcium Latest Ref Range: 8.5 - 10.5 mg/dL 7.8 (L) Magnesium Latest Ref Range: 0.69 - 1.07 mmol/L 0.80 Phosphorus Latest Ref Range: 2.5 - 4.5 mg/dL 1.1 (CRIT) Assessment and plan: Miguel Angel Mason??is a 27 y.o.male??with PMH significant for nursing home resident, 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 ?? We were consulted to give recommendations regarding hypopituitarism (adrenal insufficiency, hypothyroidism, DI and hypogonadism). Regarding hypopituitarism his main active issue is Na imbalance: * For DI patient was on DDAVP 0.05 mg TID before coming in, on admission we continued the DDAVP TIDand patient became hyponatremic, with a low urine output which means TID dosing is too much. Yesterday we followed the Na (after she just got AM dosing) and it uptrended from 137 to 148 with an increased urine output therefore we gave yesterday night dose of DDAVP. Na uptrended further to 148 mmol at 2:35 am and stayed the same at 11:29 am (148). I would continue BID DDAVP 0.05 and trend the Na Q4H. Believe the reason why the Na up-trended is because he had increased urine output and we lagged behind with DDAVP. * For adrenal insufficiency, he is on stress dose steroids 50 mg every 8 hours and we suggest changing to 50 mg every 12 hours starting and back to prior to admission 20 mg morning, 10 mg noonand 10 mg afternoon on Friday. (ordered) * For central hypothyroidism, he is euthyroid on current dose of levothyroxine, continue the same dose * For hypogonadism we are waiting for testosterone and free testosterone and we will decided of best route for replacement Regarding the fracture, he might have underlying vitamin D deficiency that has a decremental effecton bone health. Corrected calcium is in the lower limit of normal - 8.6 mg/dL and phosphorus 1.1. Because by replacing phosphorus his calcium might decrease even further, recommend replacing calcium (950 calcium citrate TID) along with phosphorus replacement, and following Ca and phos Q4H (both calcium and phosphorus). For other causes of hypophosphatemia (for example phosphorus wasting conditions), recommend doing a 24 hour phosphate/Calcium/creatinine collection. Thank you for allowing us participate in the care of this patient. Patient was seen and discused with Dr. Vu. Guerrero Tillman MD Endocrinology, Diabetes and Metabolism Fellow Pager #[phone] 09/05/2017 Associated attestation - Genevieve Page MD - 09/06/2017 12:10 AM EST I saw this patient with Dr. Niles Tillman. I reviewed the santos portions of the history and physical exam, and reviewed pertinent lab data. I answered all patient questions. I was involved in all medical decision making and agree with this plan. 1. Panhypopituitarism - the most active issue today is his diabetes insipidus. I spoke with his primary record label intern, Dr. Wilder Zaidi of [facility] Department of Endocrinology, for more details on his atypical home DDAVP regimen. Miguel Angel is cognitively impaired and has a history of polydipsia that has in the past been complicated by profound hyponatremia. This has led, over time, to a regimen of DDAVP 0.05mg po TID with a 3L (110 oz) fluid restriction that is controlled by his caregivers. On this regimen, he has had stable normonatremia and it has worked well in his outpatient care. Dr. Zaidi and I agree, however, that while Miguel Angel is hospitalized with his acute acetabular fracture that required surgery, his home DDAVP regimen with fluid restriction cannot be safely applied as per usual outpatient routine. Due to the fluid shifts involved, his NPO status perioperatively, the importance of IV fluid hydration (which is different in composition from oral free water), and his increased somnolence, keeping the equivalent of a 3L oral fluid restriction is not easily reproduced in this clinical context. Therefore, Dr. Zaidi and I agree that the best way to handle his DI while he is inpatient is to dose the DDAVP based on when he experiences breakthrough polyuria and based on his serum sodium trends; these may fluctuate from day to day. Yesterday, we went about dose-finding in this very manner, due to his hyponatremia to Na 128 on hishome DDAVP dose of 0.05mg po TID, and established that 0.05mg po q12h was a more appropriate dose at this time, in the current setting. As expected with dose-finding, he experienced some slight rebound hypernatremia to 148 following this dose-finding effort, which has since normalized to 145 as of earlier this evening. His free water losses are being replaced by the primary team with a 1/2NS infusion. On the 0.05mg q12h dosing his urine output is currently about 75 - 150 mL/hr which is a normalurine output. The patient's sister Bettina was initially distraught at these changes to his DDAVP regimen. I spokewith her personally over the phone, as did Dr. Zaidi; we explained the above to her and the fact that while Miguel Angel is inpatient with his acute acetabular fracture, his fluid status will be more of amoving target than when he is outpatient or when he had been hospitalized in the past for less critical illnesses during which continuing fluid restriction was more reasonable. I reassured her that, in the current clinical context, we are closely monitoring his sodium levels and his urine output, and he is now normonatremic with a normal urine output on the lower DDAVP dose. Once he is more stable and getting closer to discharge, we would plan at that point to resume his home DDAVP regimen along with the fluid restriction that he normally follows. Following our conversation, Bettina is much more reassured now, and she is amenable to this plan. Plan: --continue DDAVP 0.05mg po q12h --continue sodium checks q4h --continue strict I/O monitoring --will plan to resume outpatient DDAVP regimen with fluid restriction, once he is stable for discharge. 2. Pathological fracture - our other concern with Miguel Angel's current clinical presentation is to investigate why he experienced what sounds like a pathological fracture of his acetabulum. His 25-OH-D level was replete at 37, PTH was normal at 29, and alkaline phosphatase was normal. Therefore, it doesnot appear that he has a vitamin D deficiency. 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 We have requested a 24h urine phosphorus and calcium measurement to further investigate the hypophosphatemia, as possibly an underlying etiology of his brittle bones. In the mean time, the primary team has already initiated phosphate repletion with IV K-Phos. Since his serum calcium corrected for low albumin has been borderline low-normal, supplementing calcium isalso important as ca-phos binding could lower calcium levels further. Since he is receiving phosphorus IV, it is important that his calcium supplementation be oral, to avoid formation of Ca- Phos precipitates in the blood. We recommend calcium citrate as a more easily absorbable oral calcium form than calcium carbonate. Calcium and phos levels should be monitored q4h for now. Plan: --24h urine calcium, 24h urine creatinine, and 24h urine phosphorus measurement. --q4h serum calcium, serum albumin, and serum phosphorus monitoring. --continue phos repletion as appropriate --calcium citrate 950mg po TID GENEVIEVE PAGE MD Engagement Engineerintensive care specialist Section of Endocrinology [facility] [place] * Celine Power MD - 09/05/2017 7:49 AM EST Left pelvic drain removed. 40 intact holes visible in tubing. Drain sponge and overlying gauze for dressing. Patient tolerated drain removal well. Celine Power MD [id number] * Desean De Oliveira - 09/05/2017 6:16 AM EST Orthopaedic Surgery Progress Note Surgery/Issue: Procedure(s): ORIF left acetabulum Attending: Dr. Lance Date of surgery: 09/04/2017 Subjective/Events: Comfortable appearing this morning. Per nursing he pulled out his right ZOHAIB drain. Otherwise no issues overnight. Objcetive: Temp: [36 ??C (96.8 ??F)-37.1 ??C (98.8 ??F)] Heart Rate: [103-134] Resp: [14-21] BP: (97-132)/(55-80) Intake/Output Summary (Last 24 hours) at 09/05/17 0617 Last data filed at 09/05/17 0256 Gross per 24 hour Intake 5600 ml Output 8460 ml Net -2860 ml Lab Results Component Value Date NA 148 (H) 09/05/2017 K 4.1 09/05/2017 CL 112 (H) 09/05/2017 CO2 23 09/05/2017 BUN 8 (L) 09/05/2017 CREATININE 0.85 09/05/2017 GLUCOSE 203 (H) 09/05/2017 CALCIUM 7.8 (L) 09/05/2017 Lab Results Component Value Date WBC 8.6 09/05/2017 HGB 10.9 (L) 09/05/2017 HCT 31.5 (L) 09/05/2017 MCV 79.1 (L) 09/05/2017 PLATELET 169 09/05/2017 Lab Results Component Value Date INR 1.1 09/03/2017 Exam: General: NAD, somnolent, responds to questions with head nod/shake CV: RRR Resp: Breathing comfortably, lungs CTAB LLE: Anterior pelvic dressing c/d/i. Mepilex on lateral leg x2 c/d/i Left Pelvic ZOHAIB with SS output (30cc over last shift) Right ZOHAIB was removed overnight by patient Unable to assess motor/sensory He moves LLE spontaneously, wiggles toes Palpable DP/PT Radiology: XR Pelvis 09/05/2017 FINDINGS: There was interval open reduction and internal fixation of the previously described left ischial and acetabular fracture with multiple mbxmm-aop-ffsnb constructs. Tubing that could represent a surgical drain is seen with its tip projecting over the left iliac region. Additional tubing is faintly seen projecting over the midline pelvis. Fracture alignment is improved and appears near-anatomic. The sacrum is largely obscured by overlying bowel gas and stool. A/P: 27 y.o. male POD#1 s/p ORIF left acetabular fx. Progressing well post operatively. Further care per medicine, plan to work with PT/OT. Activity: NWB LLE, OK for stand pivot transver from wheelchair DVT prophylaxis: Per hospital medicine (recommend lovenox) Closure: [place] (to be removed at Orthopaedic follow-up appointment) (out ~09/17/2017) R pelvic drain pulled overnight Plan to pull left pelvic drain over weekend Dressing: Mepilex x 7 days Antibiotics: Ancef x24 hours edna-op Associated attestation - Amy Lance MD - 09/05/2017 5:28 PM EST Patient seen and examined. Agree with resident note. NWB LLE, stand pivot transfer on R leg only. Lovenox for DVT ppx. Mandy Lance MD Department of Orthopaedics 09/05/17 * Ladonna Talbert MD - 09/04/2017 7:08 PM EST Orthopaedic Surgery Post-Operative Progress Note Surgery/Issue: Procedure(s): @OPEN TREATMENT, ACETABULAR FX (WRVU 25.41) MODIFIER SMALL FRAGMENT SYNTHES MODIFIER PELVIC RECONSTRUCTION PLATE SYNTHES MODIFIER LARGE FRAGMENT SYSTEM SYNTHES Findings: Comminuted acetabular fracture. Attending: Casi Date of surgery: 09/04/2017 Subjective/Events: Patient is quite somnolent, but per nursing was sleepy prior to surgery as well. He is able to nod/shake head to answer yes/no questions. Indicates no chest pain, shortness of breath, nausea, vomiting, numbness/weakness. Pain well-controlled. Objcetive: Temp: [36 ??C (96.8 ??F)-37.2 ??C (99 ??F)] Heart Rate: [103-108] Resp: [14-21] BP: (97-138)/(55-87) Intake/Output Summary (Last 24 hours) at 09/04/17 1908 Last data filed at 09/04/17 1737 Gross per 24 hour Intake 5600 ml Output 4145 ml Net 1455 ml Lab Results Component Value Date NA 129 (L) 09/04/2017 K 4.4 09/04/2017 CL 97 (L) 09/04/2017 CO2 22 09/04/2017 BUN 12 09/04/2017 CREATININE 0.73 (L) 09/04/2017 GLUCOSE 118 09/04/2017 CALCIUM 8.0 (L) 09/04/2017 Lab Results Component Value Date WBC 8.2 09/04/2017 HGB 11.0 (L) 09/04/2017 HGB 11.1 (L) 09/04/2017 HCT 33.3 (L) 09/04/2017 HCT 33.0 (L) 09/04/2017 MCV 81.5 (L) 09/04/2017 PLATELET 118 (L) 09/04/2017 Lab Results Component Value Date INR 1.1 09/03/2017 Exam: General: NAD, somnolent, responds to questions with head nod/shake CV: reg rhythm, but tachycardic (present pre op) Resp: Breathing comfortably, lungs CTAB LLE: Anterior pelvic dressing c/d/i. Mepilex on lateral leg x2 c/d/i Pelvic ZOHAIB with SS output Sensory intact to light touch in lat fem cut/fem/sural/saph/SP/DP/T Motor intact to FHL/EHL/TA Foot cool, but palpable DP/PT Radiology: XR Pelvis 09/04/2017 FINDINGS: There was interval open reduction and internal fixation of the previously described left ischial and acetabular fracture with multiple ddxin-dut-aeetb constructs. Tubing that could represent a surgical drain is seen with its tip projecting over the left iliac region. Additional tubing is faintly seen projecting over the midline pelvis. Fracture alignment is improved and appears near-anatomic. The sacrum is largely obscured by overlying bowel gas and stool. A/P: 27 y.o. male POD#0 s/p ORIF of ischial and acetabular fx. Stably tachycardic from pre op. Somnolent, but not received pain meds as indicating no pain. Will check glucose. Otherwise, VS normal. Will continue post op plan. Associated attestation - Amy Lance MD - 09/05/2017 6:08 AM EST Patient seen and examined. Agree with resident note. NWB LLE, stand pivot transfer only on R leg. Lovenox for DVT ppx. Mandy Lance MD Department of Orthopaedics 09/05/17 * Lisa Person RN - 09/04/2017 4:38 PM EST Patient [facility] bed from PACU s/p open treatment of hip fx . Patient drowsy, but ableto open eyes to voice and nod head yes or no., HRR, but tachy. lung sounds clear, hypoactive bs, lbm 09/03, morse draining clear yellow urine. +csmt to all extremities. Dressing clean dry and intact. Denies at this time. Patient oriented to room, call morris to bedside, please see flowsheet for full assessment. Will continue to monitor Lisa Person RN * Fran Gilliam MD - 09/04/2017 4:25 PM EST Hospital Medicine Attending Daily Progress Note Admit Date: 09/02/2017 Hospital Day 2 days Active Hospital Problems Diagnosis ??? S/P ORIF left acetabulum fracture 09/04/2017 Dr. Lance ??? Postoperative anemia due to acute blood loss ??? Diabetes insipidus ??? Adrenal insufficiency ??? Panhypopituitarism ??? Seizure disorder ??? Insomnia ??? Hypothyroidism Resolved Hospital Problems Diagnosis Date Resolved No resolved problems to display. PMH Active Non-Hospital Problems Diagnosis ??? Blind ??? CVA (cerebral vascular accident) ??? Urinary incontinence Inpatient Medications: Scheduled ??? ceFAZolin 2 g Intravenous Q8H ??? enoxaparin 40 mg Subcutaneous Nightly ??? hydrocortisone 100 mg Intravenous Q8H ??? bolus IV fluid Intravenous Once ??? levothyroxine 150 mcg Oral QAM ??? melatonin 3 mg Oral Nightly ??? pantoprazole 40 mg Oral QAM AC ??? QUEtiapine 250 mg Oral Nightly ??? traZODone 50 mg Oral Nightly ??? sodium chloride 0.9 % 5 mL Intravenous BID ??? zonisamide 200 mg Oral Nightly ??? acetaminophen 1,000 mg Oral Q6H CIRO Continuous infusions: ??? sodium chloride 0.9% 100 mL/hr (09/04/17 1551) PRN: vancomycin, ondansetron, polyethylene glycol (MIRALAX)oral powder, senna- docusate, calcium carbonate, sodium chloride 0.9 %, lidocaine, naphazoline- pheniramine, HYDROmorphone, HYDROmorphone Interval History / ROS: -underwent surgical repair of acetabular fx today - apparently had large intraoperative blood loss of 1500 cc and was resuscitated with 2 u PRBC's -seen in PACU afterward - generally HD stable but pressures somewhat soft in 90-100's -pale -sedated following the procedure -appears comfortable Physical Exam Vitals Range last 24 hrs Temperature Temp: [36 ??C (96.8 ??F)-37.6 ??C (99.7 ??F)] Heart Rate Heart Rate: [103-108] Blood Pressure BP: (97-146)/(55-87) Respiratory Rate Resp: [14-28] SpO2 SpO2: [96 %-100 %] Intake/Output Summary (Last 24 hours) at 09/04/17 1634 Last data filed at 09/04/17 1537 Gross per 24 hour Intake 5600 ml Output 3445 ml Net 2155 ml Patient Vitals for the past 168 hrs: Weight 09/04/17 1300 86.6 kg (191 lb) There is no height or weight on file to calculate BMI. Physical Exam Sedated following surgery, pale, appears comfortable Anicteric MM somewhat dry Tachy, regular, no murmur CTAB anteriorly Moderately distended but does not seem to be tender No edema, feet mottled (reportedly chronic) Studies reviewed in eDH. Remarkable for the following: LABS: Last 3 wbc, hgb, hct plt Recent Labs 09/04/17 1549 09/04/17 1115 09/04/17 0358 WBC 8.2 14.1* 10.5* HGB 11.0* 11.1* 9.3* 12.4* HCT 33.3* 33.0* 26.7* 37.2* PLATELET 118* 193 142* Last 3 Lytes Recent Labs 09/04/17 1549 09/04/17 0358 09/03/17 0622 09/03/17 0154 NA 129* 128* 136 139 K 4.4 4.1 4.2 3.7 CL 97* 95* 99 102 CO2 22 22 26 25 BUN -- 12 10 10 CREATININE -- 0.73* 0.99 1.01 Last 3 LFTs Recent Labs 09/04/17 0358 AST 23 ALT 31 ALKPHOS 75 BILITOT 0.5 BILIDIR 0.1 Last Ca, Mg, Phos Recent Labs 09/04/17 0358 CALCIUM 8.0* Last 3 Coags Recent Labs 09/03/17 0054 PT 13.6 INR 1.1 PTT 26 Last 3 TFT Recent Labs 09/03/17 0622 TSH 0.01* FSBG Trend No results for input(s): POCGLU in the last 72 hours. MICRO: No results for input(s): URINECULTURE in the last 720 hours. No results for input(s): GRAMSTAIN, BFCX, LOWERRESPCX, TISSUECX in the last 720 hours. No results for input(s): BLOODCX in the last 720 hours. ECG: No results for input(s): DIAGLINE, QTCCALC in the last 720 hours. VASCULAR: No results for input(s): VBTEXTRPT in the last 720 hours. Imaging XR Pelvis Judet or In Out 3 views Redemonstrated LEFT acetabular fracture extending into the ischium with acetabular protrusio, without appreciable change in alignment. ? Assessment & Plan 27 yo man with a history of transphenoidal surgery -> panhypopituitarism (with DI, adrenal insufficiency, hypothyroidism, hypogonadism), CVA with residual partial left-sided weakness, cortical blindness, seizure disorder, and cognitive impairment here with a left acetabular fracture that occurred in the setting of a seizure. Underwent surgical repair of acetabular fx today - apparently had large intraoperative blood loss of 1500 cc and was resuscitated with 2 u PRBC's. Seen in PACU afterward - generally HD stable but pressures somewhat soft in 90-100's. ?? # Acetabular fracture -underwent operative repair today -pain control with scheduled tylenol and prn po/iv dilaudid -dvt proph with lovenox -periop stress dose steroids (see below) # Acute blood loss anemia, hypotension -received 2 u PRBC's intra-op - repeat Hgb post-op improved from 9.3 to 11.1 -monitor Hemodynamics and Hgb closely - resuscitate with IVF and PRBC's as indicated -increase stress dose steroids (see below) ?? # Seizure d/o with breakthrough seizure after no seizures for 4 years -zonisamide level pending -loaded with zonisamide 400 mg and maintenance dose increased from 100 mg to 200 mg per Neuro -metabolic, endocrine, infectious w/u (cxr clear, u/a negative, Bcx's, flu test) -appreciate Neuro input ?? # Panhypopituitarism -DI - Na low this morning at 128 consistent with excessive ddAVP dosing at the moment - hold ddAVP for now, monitor Na levels closely, and resume ddAVP at reduced frequency of BID -Adrenal insufficiency - given operative blood loss and associated degree of hemodynamic instability, will increase stress dose steroids from hydrocortisone 50 mg IV q8h to 100 mg IV q8hr for now -hypothyroid - TFT's at goal - continue levothyroxine 150 mcg -hypogonadism - testosterone levels being checked -appreciate Endocrine input on all of the above ?? IV access: piv Tubes/Drains: morse DVT PPX: lovenox Anticipated Disposition: TBD pending clinical course Goals of Care: Full Code Team Pager( Coverage 27/01): #[phone] PCP: NAKIA Cifuentes [phone] Attestation: IPI Certification I certify that I am a D-H credentialed attending provider with admitting privileges and that the patient meets or has met medical necessity to require an inpatient IPI level of care meeting a minimumof two midnights or is on the CMS inpatient only procedure list (status C) due to: Acetabular fracture requiring operative repair. FRAN GILLIAM MD 09/04/2017 * Germaine Jaimes RN - 09/04/2017 2:30 PM EST Received s/p tx of hip fx Once 2 units Prbc's infused, is now stable VSS Prev mental status listed as semi comatose Reaching up and removing nasal cannula with sats maintained >[address] room accompanied by RN report to RN on 3 * Guerrero Bah MD - 09/04/2017 8:54 AM EST Images from the original note were not included. 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 We were consulted to give recommendations regarding hypopituitarism (adrenal insufficiency, hypothyroidism, DI and hypogonadism). New events since last time seen: Patient is on stress dose steroids (hydrocortisone 50 mg Q8H), prior to admission DDAVP 0.05 mg 3 times a day (prior to admission dose), levothyroxine 150 mcg daily, and off testosterone. Overnight the patient had a urine output from 57 mL/h - 58 mL-h, urine specific gravity 1.020 at 2104. Sodium this morning 128 (down from 136). For fluids, patient got 2 L bolus NSS yesterday and is not on maintenance fluids. Patient was taken to the OR and was unable to see him. No past medical history on file. No past surgical history on file. No family history on file. Current Medications: Scheduled Meds: ??? levothyroxine 150 mcg Oral QAM ??? melatonin 3 mg Oral Nightly ??? pantoprazole 40 mg Oral QAM AC ??? QUEtiapine 250 mg Oral Nightly ??? traZODone 50 mg Oral Nightly ??? sodium chloride 0.9 % 5 mL Intravenous BID ??? hydrocortisone 50 mg Intravenous Q8H ??? zonisamide 200 mg Oral Nightly ??? acetaminophen 1,000 mg Oral Q6H CIRO ??? enoxaparin 40 mg Subcutaneous Q24H Continuous Infusions: PRN Meds:.ondansetron, polyethylene glycol (MIRALAX)oral powder, senna-docusate, calcium carbonate,sodium chloride 0.9 %, lidocaine, naphazoline-pheniramine, HYDROmorphone, HYDROmorphone Allergies Allergen Reactions ??? Lopid [Gemfibrozil] Physical Exam: BP 122/80 (BP Location (NBP): Right arm) Pulse (!) 123 Temp 36.7 ??C (98.1 ??F) (Oral) Resp 18 SpO2 99% Patient was not in his room but had been taken to the OR Labs: Results for MIGUEL ANGEL MASON ( ) as of 09/04/2017 08:57 Ref. Range 09/04/2017 03:58 Sodium Latest Ref Range: 135 - 145 mmol/L 128 (L) Potassium Latest Ref Range: 3.5 - 5.0 mmol/L 4.1 Chloride Latest Ref Range: 98 - 107 mmol/L 95 (L) CO2 Latest Ref Range: 22 - 31 mmol/L 22 Anion Gap Latest Ref Range: 5 - 15 mmol/L 11 BUN Latest Ref Range: 10 - 20 mg/dL 12 Creatinine Latest Ref Range: 0.80 - 1.50 mg/dL 0.73 (L) Estimated GFR Latest Ref Range: >=60 >60 Glucose Lvl Latest Ref Range: 65 - 199 mg/dL 118 Calcium Latest Ref Range: 8.5 - 10.5 mg/dL 8.0 (L) Total Protein Latest Ref Range: 6.1 - 8.0 gm/dL 5.9 (L) Albumin Latest Ref Range: 3.2 - 5.2 gm/dL 3.3 Total Bilirubin Latest Ref Range: 0.2 - 1.3 mg/dL 0.5 Bili, Direct Latest Ref Range: 0.0 - 0.3 mg/dL 0.1 Alk Phos Latest Ref Range: 40 - 120 unit/L 75 AST Latest Ref Range: 0 - 39 unit/L 23 ALT Latest Ref Range: 0 - 55 unit/L 31 Assessment and plan: Miguel Angel Mason is a 27 y.o.male with PMH significant for nursing home resident, 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 ?? As recommended yesterday: * For secondary adrenal insufficiency, continue stress dose steroids until he is out of the perioperative period- WE WILL ASSIST WITH TAPER * For hypothyroidism, patient is euthyroid continue prior to admission dosing levothyroxine 150 mcgdaily. * For DI patient's Na down trended. He did not receive any hypotonic saline and urine output last night low (50's mL/hr) therefore most likely SIADH form DDAVP over replacement. Recommend decreasing DDAVP 0.05 mg to TWO times a day and trend Na Q12H. There is no need to fluid restrict him * For hypogonadism he uses androgel and we will ordered levels (testosterone and free testosterone)to see if well replaced Regarding his acetabular fracture, this happened with no major trauma therefore we wonder about brittle bones. Follow 25 vitamin D (in process), and testosterone (in process). Certain risk factors that might be affecting bone health include glucocorticoids, vitamin D deficiency, or hypogonadism. Wewill further discuss need for bisphosphonates moving forward. Thank you for allowing us participate in the care of this patient. Patient will be seen and discussed with Dr. Page. Guerrero Tillman MD Endocrinology, Diabetes and Metabolism Fellow Pager #[phone] 09/04/2017 Associated attestation - Genevieve Page MD - 09/04/2017 11:35 PM EST I saw this patient with Dr. Niles Tillman. I reviewed the santos portions of the history and physical exam, and reviewed pertinent lab data. I answered all patient questions. I was involved in all medical decision making and agree with this plan. It has become apparent today that the patient's home DDAVP dose of 0.05mg po TID is excessive. He became hyponatremic to 128 mmol/L overnight and had only a 50- 60 ml/hr urine output. Apparently at his nursing home, he was being kept on a 2L fluid restriction; this is typically done for SIADH (the opposite of DI), which also indicates that he was being overmedicated with DDAVP. We held his midday DDAVP dose, and established that he develops breakthrough polyuria about 12 hours after a DDAVP dose. Therefore, a 0.05mg BID dose would be more appropriate. In regards to his pathologic fracture, he has several possible risk factors. His corrected serum calcium dose is borderline low, which is suggestive of vitamin D deficiency, for which he is at particular risk. We are still awaiting his 25-OH-D level to evaluate the severity. We also have a testosterone level pending, to assess the adequacy of his testosterone replacement dose. GENEVIEVE PAGE MD Engagement Engineerintensive care specialist Section of Endocrinology [facility] [place] * Nyasia Cochran RN - 09/04/2017 8:40 AM EST Handoff report obtained from HEATHER Machado on 3W. * Desean De Oliveira - 09/04/2017 6:20 AM EST ORTHOPAEDIC SURGERY INPATIENT PROGRESS NOTE ID: Miguel Angel Mason is a 27 y.o. male with extensive PMH, left acetabular fracture. Admitted to medicine. Plan for OR today. 24/S: Episode of vomiting overnight. Otherwise no issues per nursing. Resting comfortably. O: Temp: [37 ??C (98.6 ??F)-37.6 ??C (99.7 ??F)] Heart Rate: [115-146] Resp: [16-43] BP: (108-153)/(63-89) Intake/Output Summary (Last 24 hours) at 09/04/17 0622 Last data filed at 09/04/17 0300 Gross per 24 hour Intake 1000 ml Output 1375 ml Net -375 ml Lab Results Component Value Date NA 128 (L) 09/04/2017 K 4.1 09/04/2017 CL 95 (L) 09/04/2017 CO2 22 09/04/2017 BUN 12 09/04/2017 CREATININE 0.73 (L) 09/04/2017 GLUCOSE 118 09/04/2017 CALCIUM 8.0 (L) 09/04/2017 Lab Results Component Value Date WBC 10.5 (H) 09/04/2017 HGB 12.4 (L) 09/04/2017 HCT 37.2 (L) 09/04/2017 MCV 78.8 (L) 09/04/2017 PLATELET 142 (L) 09/04/2017 Lab Results Component Value Date INR 1.1 09/03/2017 Exam: General: NAD, awake/alert, responds to questions CV: RRR Resp: Breathing comfortably, lungs CTAB LLE: Left distal femur traction pin dressing c/d/i Unable to assess motor/sensory Brisk capillary refill distally, foot warm/well-perfused A/P: Miguel Angel Mason is a 27 y.o. male patient with panhypopituitarism, CVA, blindness, presented with left acetabular fracture. Plan for OR today. - DVT px: hold for OR - Activity: NWB LLE - Diet: NPO - Dispo: OR today Desean De Oliveira MD 09/04/2017 Pager: [phone] * David Phillips MD - 09/04/2017 6:00 AM EST Neurology Progress Note Patient Name: Miguel Angel Mason Admit Date: 09/02/2017 Attending: Dr. Phillips Patient ID: Miguel Angel Mason is a 27 y.o. 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 ?? Interval History: - 16:45 - patient met sepsis criteria based on vital signs, labs sent - No seizures overnight - Patient nauseous and vomited overnight - Vital signs: afebrile, HR 100-120, BP 100-140s, saturating well on 4 L NC, Medications: Scheduled Meds: ??? desmopressin 0.05 mg Oral TID ??? levothyroxine 150 mcg Oral QAM ??? melatonin 3 mg Oral Nightly ??? pantoprazole 40 mg Oral QAM AC ??? QUEtiapine 250 mg Oral Nightly ??? traZODone 50 mg Oral Nightly ??? sodium chloride 0.9 % 5 mL Intravenous BID ??? hydrocortisone 50 mg Intravenous Q8H ??? zonisamide 200 mg Oral Nightly ??? acetaminophen 1,000 mg Oral Q6H CIRO ??? enoxaparin 40 mg Subcutaneous Q24H Continuous Infusions: PRN Meds:.ondansetron, polyethylene glycol (MIRALAX)oral powder, senna-docusate, calcium carbonate,sodium chloride 0.9 %, lidocaine, naphazoline-pheniramine, HYDROmorphone, HYDROmorphone Physical Exam: Vitals: Temp: [37 ??C (98.6 ??F)-37.6 ??C (99.7 ??F)] Heart Rate: [115-146] Resp: [16-43] BP: (108-153)/(63-89) SpO2: [90 %-100 %] Heart Rate from SPO2: [105 bpm-131 bpm] Gen: Patient of apparent stated age, well nourished, well developed, awake, fatigued, lethargic Neuro Exam: MS: Lethargic, moaning, can answer yes or no, follow commands, CN: PERRL, EOMI, blind in both eyes Facial sensation intact, no facial asymmetry Hearing intact grossly Palate elevates symmetrically, tongue protrudes midline SCM and trap strength intact Motor: Normal bulk and tone. Left arm pronator drift, did not assess left lower extremity given fracture UE: 5/5 R, 5/5 L Arm abduction at shoulder 5/5 R, 5/5 L Elbow extension 5/5 R, 5/5 L Elbow flexion 5/5 R, 5/5 L Mechanism Inspector LE: 5/5 R, UT L Hip flexion 5/5 R, UT L Knee extension 5/5 R, UT L Knee flexion 5/5 R, 5/5 L Foot dorsiflexion 5/5 R, 5/5 L Foot plantar flexion Sensation: Intact to light touch throughout Reflexes: DTRs 2+ R, 2+ L Biceps 2+ R, 2+ L Brachioradialis 2+ R, 2+ L Triceps 2+ R, UT L Patellar 2+ R, UT L Achilles tendon Toes - R down, L down Coordination: Finger to nose intact, no dysmetria ? Labs: Recent Results (from the past 24 hour(s)) Basic Metabolic Panel (non-fasting) Result Value Ref Range Glucose Lvl 95 65 - 199 mg/dL BUN 10 10 - 20 mg/dL Creatinine 0.99 0.80 - 1.50 mg/dL Sodium 136 135 - 145 mmol/L Potassium 4.2 3.5 - 5.0 mmol/L Chloride 99 98 - 107 mmol/L CO2 26 22 - 31 mmol/L Anion Gap 11 5 - 15 mmol/L Calcium 8.8 8.5 - 10.5 mg/dL Estimated GFR >60 >=60 TSH Result Value Ref Range TSH 0.01 (L) 0.27 - 4.20 mlU/ML T4, free Result Value Ref Range Free T4 1.45 0.93 - 1.70 ng/dL Lactate, whole blood, send to lab (Leb/CGP) Result Value Ref Range Lactate WB 3.7 (H) 0.5 - 2.2 mmol/L Rapid Influenza A/B PCR Result Value Ref Range Influenza A PCR Not Detected Not Detected Influenza B PCR Not Detected Not Detected Resp PCR Source [employer] Swab Urinalysis with reflex Culture Result Value Ref Range Glucose UA Negative Negative mg/dL Protein UA Negative Negative mg/dL Bilirubin UA Negative Negative mg/dL Urobilinogen UA >=4.0 (A) Normal mg/dL pH UA 7.0 5.0 - 8.0 Blood UA Negative Negative mg/dL Ketones UA Negative Negative mg/dL Nitrite UA Negative Negative Leukocytes UA Negative Negative mcL Appearance UA Clear Clear Spec [place] UA 1.020 1.002 - 1.030 Color UA Yellow Yellow Culture Reflexed No Basic Metabolic Panel (non-fasting) Result Value Ref Range Glucose Lvl 118 65 - 199 mg/dL BUN 12 10 - 20 mg/dL Creatinine 0.73 (L) 0.80 - 1.50 mg/dL Sodium 128 (L) 135 - 145 mmol/L Potassium 4.1 3.5 - 5.0 mmol/L Chloride 95 (L) 98 - 107 mmol/L CO2 22 22 - 31 mmol/L Anion Gap 11 5 - 15 mmol/L Calcium 8.0 (L) 8.5 - 10.5 mg/dL Estimated GFR >60 >=60 Hepatic Function Panel Result Value Ref Range Total Protein 5.9 (L) 6.1 - 8.0 gm/dL Albumin 3.3 3.2 - 5.2 gm/dL AST 23 0 - 39 unit/L ALT 31 0 - 55 unit/L Alk Phos 75 40 - 120 unit/L Total Bilirubin 0.5 0.2 - 1.3 mg/dL Bili, Direct 0.1 0.0 - 0.3 mg/dL Hemogram Result Value Ref Range WBC 10.5 (H) 4.0 - 9.5 x10(3)/mcL RBC 4.72 4.58 - 5.54 x10(6)/mcL Hemoglobin 12.4 (L) 13.7 - 16.5 gm/dL Hematocrit 37.2 (L) 40.5 - 48.5 % MCV 78.8 (L) 82.9 - 93.1 fL MCH 26.3 (L) 27.5 - 32.1 pg MCHC 33.3 32.0 - 35.7 gm/dL Platelets 142 (L) 145 - 357 x10(3)/mcL RDWSD 39.5 36.0 - 45.0 fL RDWCV 13.8 11.4 - 13.8 % MPV 9.9 7.6 - 12.9 fL nRBC % Auto 0.0 % nRBC Abs Auto 0.000 0.000 - 0.000 x10(3)/mcL Differential, Automated Result Value Ref Range Neutrophils % 75.8 % Neutr Abs (ANC) 8.00 (H) 1.70 - 6.10 x10(3)/mcL Lymphocytes % 9.5 % Lymphocytes Abs 1.0 0.9 - 3.2 x10(3)/mcL Monocytes % 7.7 % Monocyte Abs 0.8 0.3 - 0.9 x10(3)/mcL Eosinophils % 5.9 % Eosinophils Abs 0.6 (H) 0.0 - 0.4 x10(3)/mcL Basophils % 0.4 % Basophils Abs 0.0 0.0 - 0.1 x10(3)/mcL Immature Gran % 0.70 % Maryellen Gran Abs 0.07 (H) 0.00 - 0.04 x10(3)/mcL Consults, Diagnostic Tests, and Imaging: Head CT w/out: from 09/02 from OSH Images reviewed showed old right frontal infarct with associated encephalomalacia, posterior cyst ? Assessment and Plan: Miguel Angel Mason is a 27 y.o. 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 The patient has a history of a seizure disorder that was previously well controlled on zonisamide 100 mg nightly.He has not had a seizure in over 4 years prior to his event yesterday. He has been taking his symptoms tonight as prescribed. His caregivers deny other recent triggers such as sleep deprivation, stressors, infectious type symptoms. Given his breakthrough seizure, we recommended a zonisamide load given the long half-life of this medication as well as increasing the standing dose. I ordereded a 400mg zonisamide load, and increased the nightly dose to 200 mg on 09/03. We would recommend working upfor possible causes of his breakthrough seizure with metabolic labs including BMP, LFTs, endocrine labs including TSH, cortisol, and infectious labs including CBC, urinalysis with reflex culture and flu swab. ?? - Zonisamide level pending - S/p 400 mg zonisamide load - Increased zonisamide to 200 mg nightly - Metabolic work up: BMP significant for hyponatremia, LFT wnl - Endocrine work up: cortisol, TSH cascade, - endocrinology has been involved in this work up - Infectious work up: CBC - elevated WBC, UA with reflex culture wnl, influenza testing neg ? Moisés Orr MD PGY-3 Neurology Pager [phone] ?? Neurology Attending ?? I saw and evaluated the patient with the neurology team. I have reviewed the resident's history during the visit and I agree with the details as written. My physical examination confirms the resident's findings. The assessment and plan were formulated in discussion with me at the time of the visit and I agree with them as documented. ?? Major issues addressed and plan: ?? 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 Patient has had rare seizures in the past. At baseline is ambulatory and says a few words. He can feed himself and follows directions inconsistently. Now presents with seizure resulting in hip fracture. ?? Exam: Yesterday, largely nonverbal, making grunting sounds, but says few rather slurred words. Follows directions somewhat inconsistently. Cranial nerves noteworthy for somewhat disconjugate gaze. He is moving on request all 4 extremities including the foot on the side of the leg fracture. Cannot do detai led motor exam. Reflexes somewhat hypoactive throughout. Withdraws bilaterally. Is clearly in pain from the hip fracture. Unable to walk ??Today sedated after surgery Data: CT scan shows right frontal infarction reportedly at the time of his pituitary surgery ?? Impression and plan: Breakthrough seizure for reasons that are unclear in patient with severe cognitive impairment and history of stroke. I suggested we give him a loading dose of Zonegran 400 mg, and increase his maintenance dose to 200 mg nightly. After orthopedic procedures are completed, it would be reasonable to obtain an EEG and MRI scan of the brain. ? David Phillips MD Department [place] [address] Pager #[phone] Email: [email or web address] ?? * Fran Gilliam MD - 09/03/2017 6:29 PM EST Hospital Medicine Attending Daily Progress Note Admit Date: 09/02/2017 Hospital Day 1 day Active Hospital Problems Diagnosis ??? Acetabular fracture ??? Diabetes insipidus ??? Adrenal insufficiency ??? Panhypopituitarism ??? Seizure disorder ??? Insomnia ??? Hypothyroidism Resolved Hospital Problems Diagnosis Date Resolved No resolved problems to display. PMH Active Non-Hospital Problems Diagnosis ??? Blind ??? CVA (cerebral vascular accident) ??? Urinary incontinence Inpatient Medications: Scheduled ??? desmopressin 0.05 mg Oral TID ??? levothyroxine 150 mcg Oral QAM ??? melatonin 3 mg Oral Nightly ??? pantoprazole 40 mg Oral QAM AC ??? QUEtiapine 250 mg Oral Nightly ??? traZODone 50 mg Oral Nightly ??? sodium chloride 0.9 % 5 mL Intravenous BID ??? hydrocortisone 50 mg Intravenous Q8H ??? zonisamide 200 mg Oral Nightly ??? acetaminophen 1,000 mg Oral Q6H CIRO ??? bolus IV fluid Intravenous Once ??? enoxaparin 40 mg Subcutaneous Q24H Continuous infusions: PRN: ondansetron, polyethylene glycol (MIRALAX)oral powder, senna-docusate, calcium carbonate, sodium chloride 0.9 %, lidocaine, naphazoline-pheniramine, HYDROmorphone, HYDROmorphone Interval History / ROS: -pain seems fairly well controlled -remains tachycardic -O2 requirement of 4 L - no cough or wheezing -patient unable to give much ROS due to cognitive impairment and speech that is difficult to understand - but denies pain currently Physical Exam Vitals Range last 24 hrs Temperature Temp: [36.3 ??C (97.3 ??F)-37.6 ??C (99.7 ??F)] Heart Rate Heart Rate: [115-146] Blood Pressure BP: (108-153)/(44-93) Respiratory Rate Resp: [15-43] SpO2 SpO2: [87 %-96 %] Intake/Output Summary (Last 24 hours) at 09/03/17 1829 Last data filed at 09/03/17 1748 Gross per 24 hour Intake 1510 ml Output 1325 ml Net 185 ml No data found. There is no height or weight on file to calculate BMI. Physical Exam Awake, NAD but intermittently crying out Anicteric Tachy, regular, no murmur CTAB anteriorly Moderately distended and tympanitic but does not seem to be tender L leg in traction, L>R feet mottled (chronic per report) Studies reviewed in eDH. Remarkable for the following: LABS: Last 3 wbc, hgb, hct plt Recent Labs 09/03/17 0054 WBC 9.1 HGB 14.8 HCT 43.4 PLATELET 156 Last 3 Lytes Recent Labs 09/03/17 0622 09/03/17 0154 09/03/17 0054 NA 136 139 Not Perf K 4.2 3.7 Not Perf CL 99 102 Not Perf CO2 26 25 Not Perf BUN 10 10 11 CREATININE 0.99 1.01 0.97 Last 3 LFTs No results for input(s): AST, ALT, ALKPHOS, BILITOT, BILIDIR in the last 7068 hours. Last Ca, Mg, Phos Recent Labs 09/03/17 0622 CALCIUM 8.8 Last 3 Coags Recent Labs 09/03/17 0054 PT 13.6 INR 1.1 PTT 26 Last 3 TFT Recent Labs 09/03/17 0622 TSH 0.01* FSBG Trend No results for input(s): POCGLU in the last 72 hours. MICRO: No results for input(s): URINECULTURE in the last 720 hours. No results for input(s): GRAMSTAIN, BFCX, LOWERRESPCX, TISSUECX in the last 720 hours. No results for input(s): BLOODCX in the last 720 hours. ECG: No results for input(s): DIAGLINE, QTCCALC in the last 720 hours. VASCULAR: No results for input(s): VBTEXTRPT in the last 720 hours. Imaging XR Pelvis Judet or In Out 3 views Redemonstrated LEFT acetabular fracture extending into the ischium with acetabular protrusio, without appreciable change in alignment. ? Assessment & Plan 27 yo man with a history of transphenoidal surgery -> panhypopituitarism (with DI, adrenal insufficiency, hypothyroidism, hypogonadism), CVA with residual partial left-sided weakness, cortical blindness, seizure disorder, and cognitive impairment here with a left acetabular fracture that occurred in the setting of a seizure. ?? # Acetabular fracture -placed in traction -plan for operative repair tomorrow -pain control with scheduled tylenol and prn po/iv dilaudid ?? # Seizure d/o with breakthrough seizure after no seizures for 4 years -check zonisamide level -loaded with zonisamide 400 mg and maintenance dose increased from 100 mg to 200 mg per Neuro -metabolic, endocrine, infectious w/u (cxr clear, check u/a, Bcx's, flu test) -appreciate Neuro input ?? # Panhypopituitarism -DI - continue usual dose of ddAVP and monitor Na level -Adrenal insufficiency - stress dose steroids with hydrocortisone 50 mg IV q8h for now -hypothyroid - TFT's at goal - continue levothyroxine 150 mcg -hypogonadism - awaiting Endocrinology rec's -appreciate Endocrine input on all of the above ?? IV access: piv Tubes/Drains: morse DVT PPX: lovenox Anticipated Disposition: TBD pending clinical course Goals of Care: Full Code Team Pager(MD Coverage 27/01): #[phone] PCP: NAKIA Cifuentes [phone] Attestation: IPI Certification I certify that I am a D-H credentialed attending provider with admitting privileges and that the patient meets or has met medical necessity to require an inpatient IPI level of care meeting a minimumof two midnights or is on the [facility] inpatient only procedure list (status C) due to: Acetabular fracture requiring operative repair. FRAN GILLIAM MD 09/03/2017 * Eula Lujan RN - 09/03/2017 5:33 PM EST Pt to unit at 1645 - patient meets sepsis criteria based on VS. Medicine paged, see new orders. Patient is alert and oriented x4. Side rails x4 due to blindness/ cognitive disability and patient moving around in bed a lot (caregiver aware and at bedside - Lali). Will continue to monitor and assess. documented in this encounter H&P Notes * Desean De Oliveira - 09/04/2017 6:22 AM EST The patient's history and physical exam have been reviewed and completed. There has been no interval change from that of the pre-operative history and physical exam done within the last 30 days. * Christopher Dalal MD - 09/02/2017 11:00 PM EST Inpatient Hospital Medicine - Admission Note Admitted 09/02/2017 HPI This is a 27 y.o. 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 History is obtain from his sister Bettina, who ishis legal guardian. He had been doing well until today. Apparently was in a large transport car with other people when they believe he seized. He apparently stiffened, no tonic- clonic movements (which would be typical for his seizures). He did not fall out of his chair but may have jammed his rigid lower extremities against the chair in front of him. He was crying out / screaming after this and could not be consoledby his sister over the phone, so she had his class b driver take him to the hospital. At [place], when asked about pain he would point to his left knee. Ultimately, CT was performed which showed acute leftacetabular fracture and osteopenia. He received several doses of morphine, dilaudid, and ativan forpain and sedation prior to transfer. He has not had a seizure for about 4 years. No recent med changes according to Bettina. Labs at [place] remarkable for Na 132. In the ER here, he was seen by orthopedics and placed in traction. Remained sedated from pain medications given. He was also given his evening doses of hydrocortisone and DDAVP. ER ordered 1L NS. ROS Pertinent positives per HPI. All other systems reviewed and negative. Home Meds Your Medications UNREVIEWED medications - Discuss With Your Provider Dose Details cholecalciferol (Vitamin D3) 400 unit Cap Take 400 Units by mouth 2 times daily. 400 Units Refills: 0 desmopressin 0.1 mg Tab Commonly known as: DDAVP Take 0.05 mg by mouth 3 times daily. Around 0700 - 1200 - 1900 0.05 mg Refills: 0 hydrocortisone 10 mg Tab Commonly known as: CORTEF Take 10-20 mg by mouth 3 times daily. Takes 20mg around 0700, 10 mg at 1200, and 10 mg at 1900. 10-20 mg Refills: 0 levothyroxine 150 mcg Tab Commonly known as: SYNTHROID Take 150 mcg by mouth every morning. 150 mcg Refills: 0 melatonin 3 mg Tab Take 3 mg by mouth nightly. 3 mg Refills: 0 omeprazole 40 mg Cpdr Commonly known as: PriLOSEC Take 40 mg by mouth daily. 40 mg Refills: 0 QUEtiapine 200 mg Tab Commonly known as: SEROquel Take 250 mg by mouth nightly. 250 mg Refills: 0 testosterone 1 % (25 mg/2.5 g) Glpk Commonly known as: ANDROGEL Place onto the skin daily. 1% 3 pumps once a day Refills: 0 traZODone 50 mg Tab Commonly known as: DESYREL Take 50 mg by mouth nightly. 50 mg Refills: 0 zonisamide 100 mg Cap Commonly known as: ZONEGRAN Take 100 mg by mouth nightly. 100 mg Refills: 0 Past Medical & Surgical Hx Patient Active Problem List Diagnosis Code ??? Acetabular fracture S32.409A ??? 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 Adrenal insufficiency E27.40 ??? 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 Seizure disorder G40.909 ??? Insomnia G47.00 ??? Blind H54.7 ??? CVA (cerebral vascular accident) I63.9 ??? Urinary incontinence R32 ??? Hypothyroidism E03.9 Social Social History Social History ??? Marital status: Single Spouse name: N/A ??? Number of children: N/A ??? Years of education: N/A Social History Main Topics ??? Smoking status: Never Smoker ??? Smokeless tobacco: Never Used ??? Alcohol use No ??? Drug use: No ??? Sexual activity: Not Asked Other Topics Concern ??? None Social History Narrative Lives at the [facility], moved in 11/07/2014. Family Reviewed and non-contributory. Objective Last Value 24 Hour Range Temperature 36.3 ??C (97.3 ??F) Temp: [36.3 ??C (97.3 ??F)] Heart Rate (!) 117 Heart Rate: [115-129] Blood Pressure 108/66 BP: (108-135)/(44-82) Respiratory Rate 28 Resp: [15-38] SpO2 93 % SpO2: [90 %-96 %] Oxygen: 2LPM Physical Exam General Sleeping, appears comfortable ENT Dry MM Cardio Tachy, regular Resp Clear GI Soft, minimally distended and tympanitic. Non-tender. Musculo LLE in traction Skin BLE mottled but warm (chronic per Bettina) Lymph No edema Pertinent Labs Repeat sodium 139 (after 1L NS) Imaging XR Pelvis Judet or In Out 3 views Redemonstrated LEFT acetabular fracture extending into the ischium with acetabular protrusio, without appreciable change in alignment. Assessment & Plan Miguel Angel Mason is a 27 y.o. male with a history of panhypopituitarism, DI, adrenal insufficiency, hypothyroidism, and CVA with residual partial left-sided weakness, cortical blindness, seizure disorder, here with a left acetabular fracture. # Acetabular fracture In the setting of seizure and osteopenia from long-term steroid use. Difficult to assess cardiovascular / functional limits given he is minimally active at baseline. Even despite the apparent breakthrough seizure, there are no current hard contraindications to proceeding with operative repair of this injury. We will need to be very cognizant of his comorbidities (DI particularly) in the edna-operative period however. ?? NPO ?? Pain control with dilaudid ?? Traction and OR per orthopedics # Seizure disorder Possible recurrent seizure, though trigger is unclear. No glucose on the scene (last seizure from 4years ago was suspected d/t hypoglycemia) but has been normoglycemic since being [place] the [place]. [place] which is unlikely to be causative. Head CT there was unremarkable for acute process. Will resume zonisamide for now but may consider d/w neurology if recurrent seizures while here. # DI Sodium level within normal range. He will continue on his DDAVP home dosing. We will know if he will be going to the OR later in the morning, if he is, he should get D5W while NPO. His reported dailyintake of PO fluid is 100 oz (per Bettina), this is ~3000 mL of fluid which would be 125 mL/hr over a 24h period. Ideally, he would return to taking PO fluids as soon as possible (with his home 100 ozgoal, given that he is otherwise approximately euvolemic). Would likely benefit from endocrinology assistance in the periop period, for this and for the below. # Adrenal insufficiency: would increasing hydrocortisone dosing due to surgical stress. Could dose usual morning dose then give hydrocortisone 50 mg IV prior to OR, then 25 mg q8h x 24h. Again, couldd/w endocrinology. # Hypothyroidism: continue home levothyroxine 150 mcg. # Other ?? Admit status: inpatient ?? Code status: FULL ?? IVF: none overnight ?? Diet: NPO ?? VTE ppx: holding for OR ?? PCP: NAKIA Cifuentes [phone] Christopher Dalal Pager #[phone] [facility] Medicine IPI Certification I certify that I am a [facility]-H credentialed attending provider with admitting privileges and that the patient meets or has met medical necessity to require an inpatient IPI level of care meeting a minimumof two midnights or is on the [facility] inpatient only procedure list (status C) due to: acetabular fracture requiring operative repair. documented in this encounter ED Notes * Darren Joyce RN - 09/03/2017 3:23 PM EST Pt resting on bed in the room with it security analyst at the bedside. Pt to have CT scan prior to transfer to the floor. Awaiting orthopedics for the CT scan. * Darren Joyce RN - 09/03/2017 12:01 PM EST Pt being fed lunch by care provider. Appears to more comfortable at this time. * Darren Joyce RN - 09/03/2017 10:45 AM EST Neurology in to evaluate Pt. * Darren Joyce RN - 09/03/2017 10:42 AM EST Pt only having relief from IV Dilaudid for about an hour. Dr. Gilliam paged and asked for something longer acting. * Darren Joyce RN - 09/03/2017 9:51 AM EST Pt moaning out in pain, PRN IV Dilaudid given with good effect. Pt fell to sleep with in 2 min of dose. * Darren Joyce RN - 09/03/2017 9:10 AM EST Chest xray done per order. * Darren Joyce RN - 09/03/2017 8:13 AM EST Pt given crackers, and dietary called for breakfast tray. * Darren Joyce RN - 09/03/2017 7:23 AM EST Pt moaning in the bed with sister at the bedside. 0.5 mg IV dilaudid given, SS of pain relieved quickly. * Crista Baptiste NRP - 09/03/2017 5:25 AM EST Spoke with Dr Dalal. He modified pt's pain medication order and is aware of pt's vital signs at this time. * Crista Baptiste NRP - 09/03/2017 5:11 AM EST Pt has been moaning again and his heart rate has increased, appears to be in pain. Dr Dalal paged. Crista Luna NRP - 09/03/2017 3:03 AM EST Pt now resting quietly in bed. Sister remains at his bedside. * Crista Baptiste NRP - 09/02/2017 11:46 PM EST Pt's sister back in the room after the procedure. Pt is now resting quietly and not awake enough totake a pill. Pt's L leg in traction with good pulses in all extremities. * Crista Baptiste NRP - 09/02/2017 10:40 PM EST Ortho placing pin for traction. * Crista Baptiste NRP - 09/02/2017 10:11 PM EST Pt's sister is concerned that pt has not had the fluids that he is supposed to today. He is on a 100 oz a day restriction. She reports that he has only had 45 oz. ED doc made aware. Sister is aware that pt cannot have anything to eat or drink at this time. Wet sponge given to pt to wet his mouth. * Tara Miguel - 09/02/2017 9:36 PM EST ED Resident Note Miguel Angel Mason is an 27 y.o. male who presents to the ED with: I saw this patient at: 12:01 AM HPI Miguel Angel Mason is a 27 y.o. male h/o DI, blindness, seizure, and incontinence who presents as transfer from [place]; he is not accompanied by family; history obtained from records at [place]. [facility] records, he had a possible tonic clonic seizure on bus, and then was unresponsive and gurgling. He was taken to the ED and noted to have left hip and knee pain. Imaging there showed possible left acetabular fx so he was transferred here for further management. At [place] ED, he got ativan 0.5 and morphine 2mg x 2 without help. Then dilaudid 1 mg with good pain control. He is usually ambulatory without assistance On arrival here, he is baseline nonverbal, but shakes his head no when asked if has pain. Review of Systems: Pertinent positives and negatives are included in the history of present illness, otherwise 10 systems are reviewed and negative PMH, PSH, MEDICATIONS and SH were all reviewed in the chart Physical Exam: Temp: [36.3 ??C (97.3 ??F)] Heart Rate: [121-129] Resp: [16-38] BP: (113-135)/(70-82) SpO2: [93 %-95 %] Heart Rate from SPO2: [126 bpm-128 bpm] Physical Exam Gen: no distress, laying in bed, making noises which are baseline HEENT: NC/AT. Moist mucus membranes. CV: RRR. No murmurs, rubs, gallops Resp: Nonlabored breathing on room air. Clear lung sounds bilaterally Abd: soft and nontender. Mildly distended Neuro: opens eye and follows commands to squeeze fingers and wiggle toes. Extrem: 2+ DP pulses bilaterally. Left knee in flexion and hip in abduction. Crying out when knee flexed or hip rotated, crying out when hip palpated. Skin: warm and dry Labs: I have reviewed the labs and imaging and they are significant for: Per OSH records, Na 132, Hgb 15.7, WBC 6.5 Imaging: XR Knee 1-2 Views Left (Generic) Final Result FINDINGS/IMPRESSION: Traction pin traverses the distal femur. Pelvis Judet or In Out 3 views (Results Pending) XR Knee 1-2 Views Left (Generic) (Results Pending) ED Course: Desmopressin 0.05 mg and 1L fluid bolus Ortho at bedside, put in traction. 0.5 dilaudid IV given Assessment and Plan: Assessment: 27 y.o. male with h/o DI, blindness, seizure, and incontinence who presents with left acetabular fracture. - admit to medicine, orthopedics consulting Tara Miguel MD Resident 09/03/17 0001 Associated attestation - Beverley Bojorquez MD - 09/15/2017 6:48 AM EDT ED ATTENDING ATTESTATION NOTE The patient was seen in conjunction with the resident physician. I have independently performed thekey portions of the history and physical exam. I have reviewed the nursing notes, vital signs, and all diagnostic studies personally including labs, imaging studies and EKGs. I have discussed the details of the case with the resident and agree with the assessment and plan as described in the resident note above unless noted otherwise below. ED Course * Meño Malhotra MD - 09/02/2017 7:00 PM EST Patient Name: Miguel Angel Mason Patient Age: 27 y.o. Birthdate: 1990 Admit date: (Not on file) Attending Physician: No att. providers found ED Course EM attending brief transfer acceptance note: Miguel Angel Mason is a 27 y.o. who I accepted in [place] The patient will be evaluated in the Emergency Department for hip fracture, medically complex, non verbal and blind. Had a seizure and has an acetabular fracture. He needs traction in the ED and willbe admitted to hospital medicine The EM team will contact the ortho/hospitalist team as needed The OSH does not agree to take the patient back in transfer after our evaluation and treatment. Transfer and stabilization prior to transfer were not discussed Meño Malhotra MD 09/02/17 1904 documented in this encounter Miscellaneous Notes * Plan of Care - Latrice Hoff RN - 03/12/2018 5:41 AM EDT Problem: Patient Care Overview Goal: Plan of Care Review Outcome: Ongoing (Interventions Implemented as Appropriate) 03/12/18 0537 Coping/Psychosocial Plan Of Care Reviewed With patient Plan of Care Review Progress progress toward functional goals as expected OUTCOME EVALUATION NOTE: OUTCOME SUMMARY: Pt disoriented to time and situation. Pt agitated at beginning of shift, more verbal. PRN Seroquel given x1 for agitation. Scheduled medications given. Pt incontinent of urine intermittently. Pt had a Lg BM at beginning of shift. Pt sleeping majority of shift. Sitter at bedside PLAN MOVING FORWARD: Plan to d/c today 03/12 INDIVIDUALIZED FALL PREVENTION INTERVENTIONS: Patient-specific fall risk factors per assessment: [current deficits]: High fall risk, generalized weakness Assistance [level of assistance required for transfers and ambulation]: 2 assist w/ front-wheel walker Supervision [direct monitoring required during toileting and ADLs]: Eyes-on Surveillance [continuous indirect monitoring]: Hourly rounding, sitter Patient-specific fall prevention interventions for sensory deficits provided, if applicable: [X] Yes CPG GOAL OUTCOME EVALUATION: * Plan of Care - Vandana Jean Baptiste RN - 03/11/2018 3:59 PM EDT Problem: Patient Care Overview Goal: Plan of Care Review Outcome: Ongoing (Interventions Implemented as Appropriate) 03/11/18 0343 03/11/18 0903 Coping/Psychosocial Plan Of Care Reviewed With -- patient Plan of Care Review Progress progress toward functional goals as expected -- OUTCOME EVALUATION NOTE: OUTCOME SUMMARY: Pt is alert to self and place, VSS. Pt was able to ambulate around the unit once. He was able to off the unit with his sitter in his wheelchair. PRN seroquil was given this afternoon for increased agitation, tolerated well. Fluid restriction was increased to 3L per day. No acute events PLAN MOVING FORWARD: Discharge tomorrow INDIVIDUALIZED FALL PREVENTION INTERVENTIONS: Patient-specific fall risk factors per assessment: [current deficits]: High fall risk Assistance [level of assistance required for transfers and ambulation]: 2 assist with walker Supervision [direct monitoring required during toileting and ADLs]: Hands on Surveillance [continuous indirect monitoring]: Hourly rounding, sitter remains at bedside, bed leftin lowest position, non skid socks on while out of bed Patient-specific fall prevention interventions for sensory deficits provided, if applicable: [X] N/A CPG GOAL OUTCOME EVALUATION: * Plan of Care - Latrice Hoff RN - 03/11/2018 3:50 AM EDT Problem: Patient Care Overview Goal: Plan of Care Review Outcome: Ongoing (Interventions Implemented as Appropriate) 03/11/18 0343 Coping/Psychosocial Plan Of Care Reviewed With patient Plan of Care Review Progress progress toward functional goals as expected OUTCOME EVALUATION NOTE: OUTCOME SUMMARY: Pt disoriented to time and situation. VSS. Scheduled medications given. Pt was agitated and verbal at beginning of shift. PRN Seroquel given for agitation. 2L fluid restriction maintained. Pt sleeping majority of shift. Sitter at the bedside. PLAN MOVING FORWARD: Continue fluid restriction, encourage mobility (daily walks), prepare for d/c when appropriate INDIVIDUALIZED FALL PREVENTION INTERVENTIONS: Patient-specific fall risk factors per assessment: [current deficits]: High fall risk, recent L hipfx Assistance [level of assistance required for transfers and ambulation]: Independent in bed, 2 assist w/ front-wheel walker OOB Supervision [direct monitoring required during toileting and ADLs]: Eyes-on Surveillance [continuous indirect monitoring]: Hourly rounding, 1:1 sitter Patient-specific fall prevention interventions for sensory deficits provided, if applicable: [X] Yes CPG GOAL OUTCOME EVALUATION: * Plan of Care - Vandana Jean Baptiste RN - 03/10/2018 6:28 PM EDT Problem: Patient Care Overview Goal: Plan of Care Review Outcome: Ongoing (Interventions Implemented as Appropriate) 03/08/18 0333 03/09/18 2300 Coping/Psychosocial Plan Of Care Reviewed With -- patient Plan of Care Review Progress no change -- OUTCOME EVALUATION NOTE: OUTCOME SUMMARY: Pt is alert to self and place, VSS. PRN Seroquel was given for agitation this morning. Pt was able to go for a walk today roughly 115ft. Pt remains on 2L fluid restriction. No acute changes PLAN MOVING FORWARD: Continue to promote ambulation, remain on fluid restriction, continue to monitor and assess INDIVIDUALIZED FALL PREVENTION INTERVENTIONS: Patient-specific fall risk factors per assessment: [current deficits]: High fall risk Assistance [level of assistance required for transfers and ambulation]: 2 assist Supervision [direct monitoring required during toileting and ADLs]: Hands on Surveillance [continuous indirect monitoring]: Hourly rounding, sitter at bedside, bed left in lowest position, non skid socks on. Patient-specific fall prevention interventions for sensory deficits provided, if applicable: [X] N/A CPG GOAL OUTCOME EVALUATION: * Plan of Care - Mady Foss RN - 03/10/2018 12:43 AM EDT Problem: Patient Care Overview Goal: Plan of Care Review Outcome: Ongoing (Interventions Implemented as Appropriate) 03/08/18 0333 03/09/18 2300 Coping/Psychosocial Plan Of Care Reviewed With -- patient Plan of Care Review Progress no change -- OUTCOME EVALUATION NOTE: OUTCOME SUMMARY: Pt alert to self, place, and situation. VSS. No c/o pain, but holding left knee while screaming. PRN advil given as well as PRN seroquel around 2300 for agitation and perceived pain. 1:1 sitter continued. Pt incontinent a couple times overnight of urine. No acute issues or events overnight. PLAN MOVING FORWARD: Continue to monitor Continue sitter Plan of care meeting today INDIVIDUALIZED FALL PREVENTION INTERVENTIONS: Patient-specific fall risk factors per assessment: [current deficits]: Significant weakness, high fall risk, new environment, blindness Assistance [level of assistance required for transfers and ambulation]: 2 assist with walker Supervision [direct monitoring required during toileting and ADLs]: Hands on/eyes on Surveillance [continuous indirect monitoring]: Jeet, 1:1 sitter Patient-specific fall prevention interventions for sensory deficits provided, if applicable: [X] N/A CPG GOAL OUTCOME EVALUATION: * Plan of Care - Emili Gavin RN - 03/09/2018 5:42 PM EDT Problem: Patient Care Overview Goal: Plan of Care Review Outcome: Ongoing (Interventions Implemented as Appropriate) 03/08/18 0333 03/09/18 0900 Coping/Psychosocial Plan Of Care Reviewed With -- patient Plan of Care Review Progress no change -- Goal: Individualization & Mutuality Outcome: Ongoing (Interventions Implemented as Appropriate) OUTCOME EVALUATION NOTE: ?? OUTCOME SUMMARY:Miguel Angel Mason is a 27 y.o. male pt AXO to self and place throughout the shift. Pt denied having pain. VSS. Pt ambulated in quinn approximately 150 feet and tolerated well. Pt sleepingintermittently through shift. 1:1 sitter remains at bedside. No acute events. Safety maintained. ?? PLAN MOVING FORWARD: ?? 2L fluid restriction,Encourage mobility and getting OOB,Monitor labs, I&O's, and vital signs ?? INDIVIDUALIZED FALL PREVENTION INTERVENTIONS: ?? Patient-specific fall risk factors per assessment: [current deficits]: High Fall Risk: Generalized weakness, Impaired cognition, high fall risk ?? Assistance [level of assistance required for transfers and ambulation]: 2-3 assist ?? Supervision [direct monitoring required during toileting and ADLs]: Hands on ?? Surveillance [continuous indirect monitoring]: Purposeful rounding, 1:1 sitter ?? Patient-specific fall prevention interventions for sensory deficits provided, if applicable: [X] Yes ? CPG GOAL OUTCOME EVALUATION: Ongoing ?? Goal: Fall Prevention-Safe Patient Handling Outcome: Ongoing (Interventions Implemented as Appropriate) 03/09/1889903/09/18 1200 Restraint Interventions Safety Promotion/Fall Prevention -- fall prevention program maintained;nonskid shoes/slippers when out of bed;safety round/check completed Activity Activity Type activity adjusted per tolerance;activity encouraged;ROM, active encouraged -- Activity Assistance Provided assistance, 3 or more people -- Assistive Device Utilized front-wheel walker -- Positioning Body Position -- independent with trapeze/overhead bed frame Daily Care Interventions Self-Care Promotion independence encouraged -- [place] Fall Risk History of Falling 0 -- Secondary Diagnosis 15 -- Ambulatory Aids 15 -- Intravenous Therapy/Heparin/Saline Lock 0 -- Gait/Transferring 10 -- Mental Status 15 -- Score 55 -- OTHER [place] Fall Risk High -- Goal: Infection Control Outcome: Ongoing (Interventions Implemented as Appropriate) 03/09/1889903/09/18 1200 Coping Strategies Supportive Measures self-care encouraged;active listening utilized;verbalization of feelings encouraged -- Safety Interventions Isolation Precautions -- standard precautions maintained Infection Prevention -- rest/sleep promoted Goal: Discharge Needs Assessment Outcome: Ongoing (Interventions Implemented as Appropriate) 01/05/18 2216 02/05/18 0534 03/04/18 1858 Discharge Needs Assessment Concerns To Be Addressed -- -- discharge planning concerns Readmission Within The Last 30 Days -- -- no previous admission in last 30 days Provider Choice List(s) Given yes -- -- Equipment Needed After Discharge wheelchair;walker, rolling -- -- Discharge Facility/Level Of Care Needs assisted living facility;nursing facility, skilled;nursing facility, basic -- -- Current Discharge Risk -- chronically ill;cognitively impaired;dependent with mobility/activities of daily living -- Discharge Disposition -- -- -- Current Health Outpatient/Agency/Support Group Needs -- -- assisted living facility (specify) Anticipated Changes Related to Illness -- -- inability to care for self Living Environment Transportation Available agency transportation;van, wheelchair accessible;ambulance -- -- Activity/Self Care Review of Systems Equipment Currently Used at Home none -- -- 03/07/18 0256 Discharge Needs Assessment Concerns To Be Addressed -- Readmission Within The Last 30 Days -- Provider Choice List(s) Given -- Equipment Needed After Discharge -- Discharge Facility/Level Of Care Needs -- Current Discharge Risk -- Discharge Disposition still a patient Current Health Outpatient/Agency/Support Group Needs -- Anticipated Changes Related to Illness -- Living Environment Transportation Available -- Activity/Self Care Review of Systems Equipment Currently Used at Home -- Goal: Interdisciplinary Rounds/Family Conf Outcome: Ongoing (Interventions Implemented as Appropriate) 03/07/18 1748 Interdisciplinary Rounds/Family Conf Participants nursing;patient;physician Problem: Skin Integrity Impairment, Risk/Actual (Adult) Goal: Skin Integrity/Wound Healing Patient will demonstrate the desired outcomes by discharge/transition of care. Outcome: Ongoing (Interventions Implemented as Appropriate) 03/09/18 173 Skin Integrity Impairment, Risk/Actual (Adult) Skin Integrity/Wound Healing making progress toward outcome Problem: Thought Process Alteration (Adult) Goal: Improved Thought Process Patient will demonstrate the desired outcomes by discharge/transition of care. Outcome: Ongoing (Interventions Implemented as Appropriate) 03/09/18 173 Thought Process Alteration (Adult) Improved Thought Process making progress toward outcome Problem: Fluid Volume Excess (Adult,Obstetrics,Pediatric) Goal: Stable Weight Patient will demonstrate the desired outcomes by discharge/transition of care. Outcome: Ongoing (Interventions Implemented as Appropriate) 03/09/18 1731 Fluid Volume Excess (Adult,Obstetrics,Pediatric) Stable Weight making progress toward outcome Goal: Balanced Intake/Output Patient will demonstrate the desired outcomes by discharge/transition of care. Outcome: Ongoing (Interventions Implemented as Appropriate) 03/08/18 0328 Fluid Volume Excess (Adult,Obstetrics,Pediatric) Balanced Intake/Output making progress toward outcome * Plan of Care - Jolene Domínguez RN - 03/09/2018 5:38 AM EDT Problem: Patient Care Overview Goal: Plan of Care Review Outcome: Ongoing (Interventions Implemented as Appropriate) 03/08/18 0333 03/08/181999 Coping/Psychosocial Plan Of Care Reviewed With -- patient Plan of Care Review Progress no change -- OUTCOME EVALUATION NOTE: OUTCOME SUMMARY: Pt alert and oriented to self and place throughout the shift. Pt denied having pain. VSS. Pt restless and verbal at beginning of the shift; pt settled down and slept for majority of the night. 1:1 sitter remains at bedside. No acute events. Safety maintained. PLAN MOVING FORWARD: 4L fluid restriction Encourage mobility and getting OOB Monitor labs, I&O's, and vital signs INDIVIDUALIZED FALL PREVENTION INTERVENTIONS: Patient-specific fall risk factors per assessment: [current deficits]: Generalized weakness, Impaired cognition, high fall risk Assistance [level of assistance required for transfers and ambulation]: 2-3 assist Supervision [direct monitoring required during toileting and ADLs]: Hands on Surveillance [continuous indirect monitoring]: Purposeful rounding, 1:1 sitter Patient-specific fall prevention interventions for sensory deficits provided, if applicable: [X] Yes CPG GOAL OUTCOME EVALUATION: * Plan of Care - Karina Alvarado RN - 03/08/2018 6:11 PM EDT Problem: Patient Care Overview Goal: Plan of Care Review Outcome: Ongoing (Interventions Implemented as Appropriate) 03/08/18 0333 03/08/18 1759 Coping/Psychosocial Plan Of Care Reviewed With -- patient Plan of Care Review Progress no change -- OUTCOME EVALUATION NOTE: OUTCOME SUMMARY: The patient's assessment is as documented. The patient ambulated half way around the unit today with a walker and 2 person assist. Sitter remains at the bedside for safety and support. . Remains on 4L fluid restriction. The patient is not in acute distress. Will continue to monitor and anticipate the patient's needs. PLAN MOVING FORWARD: Lab draws. 4L fluid restriction. Sitter monitoring. Safety precautions. INDIVIDUALIZED FALL PREVENTION INTERVENTIONS: Patient-specific fall risk factors per assessment: [current deficits]: High fall risk Assistance [level of assistance required for transfers and ambulation]: 2 person assist Supervision [direct monitoring required during toileting and ADLs]: Hands on Surveillance [continuous indirect monitoring]: Purposeful hourly rounding and safety maintenance Patient-specific fall prevention interventions for sensory deficits provided, if applicable: [X] Yes CPG GOAL OUTCOME EVALUATION: * Plan of Care - Clare Montoya RN - 03/08/2018 3:43 AM EDT Problem: Patient Care Overview Goal: Plan of Care Review Outcome: Ongoing (Interventions Implemented as Appropriate) 03/08/18 0333 Coping/Psychosocial Plan Of Care Reviewed With patient Plan of Care Review Progress no change OUTCOME EVALUATION NOTE: OUTCOME SUMMARY: Full assessment as documented. Pt restless, agitated and frequently calling out all night. PRN seroquel given with minimal effect. Limits set and enforced consistently. Per MD request will attempt labs prior to 7am. PLAN MOVING FORWARD: Continue to follow behavioral care plan to provide consistent structure for pt. Continue to maintain pt and staff safety at all times. Notify medical team of any changes in pt status. INDIVIDUALIZED FALL PREVENTION INTERVENTIONS: INDIVIDUALIZED FALL PREVENTION INTERVENTIONS: ?? Patient-specific fall risk factors per assessment: [current deficits]: High fall risk ?? Assistance [level of assistance required for transfers and ambulation]: 2 assist ?? Supervision [direct monitoring required during toileting and ADLs]: Hands on ?? Surveillance [continuous indirect monitoring]: Hourly rounding, sitter remains at bedside, non skidsocks on, bed left in lowest position, ?? Patient-specific fall prevention interventions for sensory deficits provided, if applicable: [X] N/A ?? CPG GOAL OUTCOME EVALUATION: * Plan of Care - Vandana Jean Baptiste RN - 03/07/2018 6:14 PM EDT Problem: Patient Care Overview Goal: Plan of Care Review Outcome: Ongoing (Interventions Implemented as Appropriate) 03/07/186 03/07/18919 Coping/Psychosocial Plan Of Care Reviewed With -- patient Plan of Care Review Progress no change -- OUTCOME EVALUATION NOTE: OUTCOME SUMMARY: Pt is Alert to self, VSS. Pt this morning was lethargic and hard to awaken, pt woke up for morning meds and breakfast but then fell back to sleep, MD aware and ordered STAT labs. Pt was incontinent all day of both urine and stool. Pt refused to walk today. PRN Seroquel was given around 1800 for increased agitation. No acute events PLAN MOVING FORWARD: Continue to monitor and assess, awaiting placement INDIVIDUALIZED FALL PREVENTION INTERVENTIONS: Patient-specific fall risk factors per assessment: [current deficits]: High fall risk Assistance [level of assistance required for transfers and ambulation]: 2 assist Supervision [direct monitoring required during toileting and ADLs]: Hands on Surveillance [continuous indirect monitoring]: Hourly rounding, sitter remains at bedside, non skidsocks on, bed left in lowest position, Patient-specific fall prevention interventions for sensory deficits provided, if applicable: [X] N/A CPG GOAL OUTCOME EVALUATION: * Plan of Care - Noel Urbano RN - 03/07/2018 3:03 AM EDT Problem: Patient Care Overview Goal: Plan of Care Review Outcome: Ongoing (Interventions Implemented as Appropriate) 03/07/18 0256 Coping/Psychosocial Plan Of Care Reviewed With patient Plan of Care Review Progress no change OUTCOME EVALUATION NOTE: OUTCOME SUMMARY: A+Ox2, oriented to self and location. Assessment as documented. Medications given per order. PRN Seroquel x1. No acute events, will cont to monitor. PLAN MOVING FORWARD: Awaiting placement - meeting INDIVIDUALIZED FALL PREVENTION INTERVENTIONS: Patient-specific fall risk factors per assessment: [current deficits]: Generalized weakness, behavior, medications Assistance [level of assistance required for transfers and ambulation]: 3 assist, w/ walker and wheelchair Supervision [direct monitoring required during toileting and ADLs]: Eyes on - hands on Surveillance [continuous indirect monitoring]: Sitter, hourly rounding Patient-specific fall prevention interventions for sensory deficits provided, if applicable: [X] Yes CPG GOAL OUTCOME EVALUATION: Goal: Individualization & Mutuality Outcome: Ongoing (Interventions Implemented as Appropriate) 10/17/17 1745 11/18/17 0546 01/25/18 0243 Individualization Patient Specific Preferences -- -- Enjoys icecream, applesauce or pudding for medications. Patient Specific Goals -- -- maintain safety, ambulate three times daily Patient Specific Interventions -- -- encourage ambulation, restrict fluids Mutuality/Individual Preferences What Anxieties, Fears or Concerns Do You Have About Your Health or Care? ISHAAN -- -- What Questions Do You Have About Your Health or Care? ISHAAN -- -- What Information Would Help Us Give You More Personalized Care? -- Sister, Bettina, is his guardian -- Goal: Fall Prevention-Safe Patient Handling Outcome: Ongoing (Interventions Implemented as Appropriate) 03/06/18 0930 03/06/18 1409 03/06/18 1852 Restraint Interventions Safety Promotion/Fall Prevention -- -- -- Activity Activity Type -- -- ambulated in quinn Activity Assistance Provided -- -- assistance, 1 person Assistive Device Utilized -- -- front-wheel walker Positioning Body Position -- -- -- Daily Care Interventions Self-Care Promotion -- independence encouraged -- [place] Fall Risk History of Falling 25 -- -- Secondary Diagnosis 15 -- -- Ambulatory Aids 15 -- -- Intravenous Therapy/Heparin/Saline Lock 0 -- -- Gait/Transferring 10 -- -- Mental Status 15 -- -- Score 80 -- -- OTHER [place] Fall Risk High -- -- 03/06/18 2200 Restraint Interventions Safety Promotion/Fall Prevention fall prevention program maintained;nonskid shoes/slippers when outof bed;safety round/check completed Activity Activity Type -- Activity Assistance Provided -- Assistive Device Utilized -- Positioning Body Position independent with trapeze/overhead bed frame Daily Care Interventions Self-Care Promotion -- [place] Fall Risk History of Falling -- Secondary Diagnosis -- Ambulatory Aids -- Intravenous Therapy/Heparin/Saline Lock -- Gait/Transferring -- Mental Status -- Score -- OTHER [place] Fall Risk -- Goal: Infection Control Outcome: Ongoing (Interventions Implemented as Appropriate) 03/06/1830 03/06/18 220 Coping Strategies Supportive Measures active listening utilized;self-care encouraged;verbalization of feelings encouraged -- Safety Interventions Isolation Precautions -- standard precautions maintained Infection Prevention -- rest/sleep promoted Goal: Discharge Needs Assessment Outcome: Ongoing (Interventions Implemented as Appropriate) 01/05/186 02/05/18 0534 03/04/18 1858 Discharge Needs Assessment Concerns To Be Addressed -- -- discharge planning concerns Readmission Within The Last 30 Days -- -- no previous admission in last 30 days Provider Choice List(s) Given yes -- -- Equipment Needed After Discharge wheelchair;walker, rolling -- -- Discharge Facility/Level Of Care Needs assisted living facility;nursing facility, skilled;nursing facility, basic -- -- Current Discharge Risk -- chronically ill;cognitively impaired;dependent with mobility/activities of daily living -- Discharge Disposition -- -- -- Current Health Outpatient/Agency/Support Group Needs -- -- assisted living facility (specify) Anticipated Changes Related to Illness -- -- inability to care for self Living Environment Transportation Available agency transportation;van, wheelchair accessible;ambulance -- -- Activity/Self Care Review of Systems Equipment Currently Used at Home none -- -- 03/07/18255 Discharge Needs Assessment Concerns To Be Addressed -- Readmission Within The Last 30 Days -- Provider Choice List(s) Given -- Equipment Needed After Discharge -- Discharge Facility/Level Of Care Needs -- Current Discharge Risk -- Discharge Disposition still a patient Current Health Outpatient/Agency/Support Group Needs -- Anticipated Changes Related to Illness -- Living Environment Transportation Available -- Activity/Self Care Review of Systems Equipment Currently Used at Home -- Goal: Interdisciplinary Rounds/Family Conf Outcome: Ongoing (Interventions Implemented as Appropriate) 03/07/18255 Interdisciplinary Rounds/Family Conf Participants nursing;patient * Plan of Care - Ellen Moncada RN - 03/06/2018 7:18 PM EDT Problem: Patient Care Overview Goal: Plan of Care Review Outcome: Ongoing (Interventions Implemented as Appropriate) 03/06/1834303/06/1830 Coping/Psychosocial Plan Of Care Reviewed With -- patient Plan of Care Review Progress no change -- OUTCOME EVALUATION NOTE: OUTCOME SUMMARY: Miguel Angel had a really good day. He did start to get more vocal with yelling this afternoon and was medicated per emar for agitation. He had a meeting regarding placement today and will have a final determination meeting on Friday. He walked today and did a half loop around the floor. PLAN MOVING FORWARD: Awaiting placement INDIVIDUALIZED FALL PREVENTION INTERVENTIONS: Patient-specific fall risk factors per assessment: [current deficits]: Weakness, mental ability, agitation, medications Assistance [level of assistance required for transfers and ambulation]: 3 assist with a walker and wheelchair Supervision [direct monitoring required during toileting and ADLs]: Hands on Surveillance [continuous indirect monitoring]: Purposeful rounding, bed alarm, 1:1 sitter, room near unit station Patient-specific fall prevention interventions for sensory deficits provided, if applicable: [X] Yes CPG GOAL OUTCOME EVALUATION: * Plan of Care - Noel Urbano RN - 03/06/2018 4:01 AM EDT Problem: Patient Care Overview Goal: Plan of Care Review Outcome: Ongoing (Interventions Implemented as Appropriate) 03/06/18 034 Coping/Psychosocial Plan Of Care Reviewed With patient Plan of Care Review Progress no change OUTCOME EVALUATION NOTE: OUTCOME SUMMARY: A+Ox 2, oriented to self/location. Assessment as documented. Medications given per orders. Inc x2. Slept through the night. Pt remained calm and cooperative. No acute events, will cont to monitor. PLAN MOVING FORWARD: Awaiting placement Encourage positive behavior INDIVIDUALIZED FALL PREVENTION INTERVENTIONS: Patient-specific fall risk factors per assessment: [current deficits]: generalized weakness, behavior, altered mental capacity Assistance [level of assistance required for transfers and ambulation]: 2-3 assist OOB Supervision [direct monitoring required during toileting and ADLs]: hands on - eyes on Surveillance [continuous indirect monitoring]: Sitter Patient-specific fall prevention interventions for sensory deficits provided, if applicable: [X] Yes CPG GOAL OUTCOME EVALUATION: Goal: Individualization & Mutuality Outcome: Ongoing (Interventions Implemented as Appropriate) 10/17/17 1745 11/18/17 0546 01/25/18 0243 Individualization Patient Specific Preferences -- -- Enjoys icecream, applesauce or pudding for medications. Patient Specific Goals -- -- maintain safety, ambulate three times daily Patient Specific Interventions -- -- encourage ambulation, restrict fluids Mutuality/Individual Preferences What Anxieties, Fears or Concerns Do You Have About Your Health or Care? ISHAAN -- -- What Questions Do You Have About Your Health or Care? ISHAAN -- -- What Information Would Help Us Give You More Personalized Care? -- Sister, Bettina, is his guardian -- Goal: Fall Prevention-Safe Patient Handling Outcome: Ongoing (Interventions Implemented as Appropriate) 03/05/18204403/06/18 0040 Restraint Interventions Safety Promotion/Fall Prevention -- activity supervised;nonskid shoes/slippers when out of bed;safety round/check completed Activity Activity Type activity adjusted per tolerance -- Activity Assistance Provided assistance, 3 or more people -- Assistive Device Utilized front-wheel walker -- Positioning Body Position independent -- Daily Care Interventions Self-Care Promotion independence encouraged -- [place] Fall Risk History of Falling 25 -- Secondary Diagnosis 15 -- Ambulatory Aids 15 -- Intravenous Therapy/Heparin/Saline Lock 0 -- Gait/Transferring 10 -- Mental Status 15 -- Score 80 -- OTHER [place] Fall Risk High -- Goal: Infection Control Outcome: Ongoing (Interventions Implemented as Appropriate) 03/05/18204403/06/18 004 Coping Strategies Supportive Measures active listening utilized;self-care encouraged;verbalization of feelings encouraged -- Safety Interventions Isolation Precautions -- standard precautions maintained Infection Prevention -- environmental surveillance performed;single patient room provided Goal: Discharge Needs Assessment Outcome: Ongoing (Interventions Implemented as Appropriate) 01/05/18 2216 02/05/18 0534 03/04/18 0508 Discharge Needs Assessment Concerns To Be Addressed -- -- discharge planning concerns Readmission Within The Last 30 Days -- -- no previous admission in last 30 days Provider Choice List(s) Given yes -- -- Equipment Needed After Discharge wheelchair;walker, rolling -- -- Discharge Facility/Level Of Care Needs assisted living facility;nursing facility, skilled;nursing facility, basic -- -- Current Discharge Risk -- chronically ill;cognitively impaired;dependent with mobility/activities of daily living -- Discharge Disposition -- -- -- Current Health Outpatient/Agency/Support Group Needs -- -- assisted living facility (specify) Anticipated Changes Related to Illness -- -- inability to care for self Living Environment Transportation Available agency transportation;van, wheelchair accessible;ambulance -- -- Activity/Self Care Review of Systems Equipment Currently Used at Home none -- -- 03/06/18343 Discharge Needs Assessment Concerns To Be Addressed -- Readmission Within The Last 30 Days -- Provider Choice List(s) Given -- Equipment Needed After Discharge -- Discharge Facility/Level Of Care Needs -- Current Discharge Risk -- Discharge Disposition still a patient Current Health Outpatient/Agency/Support Group Needs -- Anticipated Changes Related to Illness -- Living Environment Transportation Available -- Activity/Self Care Review of Systems Equipment Currently Used at Home -- Goal: Interdisciplinary Rounds/Family Conf Outcome: Ongoing (Interventions Implemented as Appropriate) 03/06/18 0344 Interdisciplinary Rounds/Family Conf Participants nursing;patient * Plan of Care - Mady Recio RN - 03/05/2018 3:43 PM EDT Problem: Patient Care Overview Goal: Plan of Care Review Outcome: Ongoing (Interventions Implemented as Appropriate) 03/04/18 1859 03/05/18 0998 Coping/Psychosocial Plan Of Care Reviewed With -- patient Plan of Care Review Progress no change -- OUTCOME EVALUATION NOTE: OUTCOME SUMMARY: Pt was calm and cooperative throughout shift. VSS. Pt oriented to self and location only; disoriented to time and situation. Assessment as documented. Pt remained free from injury. Pt needed PRN Seroquel for agitation. No acute events. Will continue to monitor. PLAN MOVING FORWARD: Awaiting placement INDIVIDUALIZED FALL PREVENTION INTERVENTIONS: Patient-specific fall risk factors per assessment: [current deficits]: Masimo, generalized weakness Assistance [level of assistance required for transfers and ambulation]: 2-3 assist OOB Supervision [direct monitoring required during toileting and ADLs]: Hands and eyes on Surveillance [continuous indirect monitoring]: Purposeful rounding, Masimo, sitter at bedside Patient-specific fall prevention interventions for sensory deficits provided, if applicable: [X] Yes CPG GOAL OUTCOME EVALUATION: * Plan of Care - Shruti Lozoya RN - 03/05/2018 5:39 AM EDT Problem: Patient Care Overview Goal: Plan of Care Review Outcome: Ongoing (Interventions Implemented as Appropriate) 03/04/18 1859 03/05/18 0529 Coping/Psychosocial Plan Of Care Reviewed With -- patient Plan of Care Review Progress no change -- OUTCOME EVALUATION NOTE: OUTCOME SUMMARY: Pt admitted 09/02/17 with L LE fracture after a fall. Pt s/p ORIF and is currently stable, awaiting placement. Pt calm, cooperative with all care overnight. VSS. Pt denies pain, discomfort. No urinary incontinence, using urinal. Sitter present at bedside. PLAN MOVING FORWARD: Continue to monitor VS, labs, assessments. Medicate as ordered and as needed. Await placement when bed available. INDIVIDUALIZED FALL PREVENTION INTERVENTIONS: Patient-specific fall risk factors per assessment: [current deficits]: Weakness, altered mental capacity, behavioral changes Assistance [level of assistance required for transfers and ambulation]: 2 assist and FWW if OOB fortransfers and ambulation Supervision [direct monitoring required during toileting and ADLs]: Hands on if OOB for toileting, 1 assist for ADLs Surveillance [continuous indirect monitoring]: Hourly rounding, bed alarm, sitter present at bedside Patient-specific fall prevention interventions for sensory deficits provided, if applicable: [X] Yes, call morris within easy reach, side rails up x 2-3, nonslip socks/shoes on if OOB, PT consult CPG GOAL OUTCOME EVALUATION: * Plan of Care - Kristin Smith RN - 03/04/2018 6:48 PM EDT Problem: Patient Care Overview Goal: Plan of Care Review Outcome: Ongoing (Interventions Implemented as Appropriate) 03/04/18 1859 Coping/Psychosocial Plan Of Care Reviewed With patient;family Plan of Care Review Progress no change OUTCOME EVALUATION NOTE: OUTCOME SUMMARY: Pt alert to self and place only. Able to ambulate from room to nurses station w/ 2 person assist and gait belt. Voiding spontaneously w/o difficulty throughout the day, see I+Os. Had a large BM this afternoon. PO intake remains excellent. Pt continues to become agitated and yell out intermittently throughout the day. Sitter remains at bedside. No other acute events to note at this time. Will continue to monitor and notify MD of any changes. PLAN MOVING FORWARD: Encourage fluid intake, encourage ambulation, discharge INDIVIDUALIZED FALL PREVENTION INTERVENTIONS: Patient-specific fall risk factors per assessment: [current deficits]: Poor safety awareness, generalized weakness Assistance [level of assistance required for transfers and ambulation]: x2 assist w/ walker Supervision [direct monitoring required during toileting and ADLs]: Hands on Surveillance [continuous indirect monitoring]: Sitter at bedside, room near nurses station, purposeful rounding Patient-specific fall prevention interventions for sensory deficits provided, if applicable: [X] Yes CPG GOAL OUTCOME EVALUATION: * Plan of Care - Shruti Lozoya RN - 03/04/2018 3:58 AM EDT Problem: Patient Care Overview Goal: Plan of Care Review Outcome: Ongoing (Interventions Implemented as Appropriate) 03/04/18 0338 Coping/Psychosocial Plan Of Care Reviewed With patient Plan of Care Review Progress no change OUTCOME EVALUATION NOTE: OUTCOME SUMMARY: Pt admitted 09/02/17 after fall with L acetabulum fx, s/p ORIF. Pt stable overnight, calm and cooperative with all care. Using urinal appropriately. No behavior issues this shift. Pt A/O to self, , hospital 2018, not to situation. No prns needed overnight. Will continue to monitor and will encourage independence and ambulation in the AM. Will inform MD of any changes. PLAN MOVING FORWARD: Closely monitor VS, labs, assessments. Medicate as needed and as ordered. Inform MD of any changes. Await [facility]hab[facility] care [facility]. INDIVIDUALIZED FALL PREVENTION INTERVENTIONS: Patient-specific fall risk factors per assessment: [current deficits]: Weakness, mental capacity Assistance [level of assistance required for transfers and ambulation]: 1-2 assist and FWW for transfers and ambulation Supervision [direct monitoring required during toileting and ADLs]: Hands on if OOB for toileting, 1 assist for ADLs Surveillance [continuous indirect monitoring]: Hourly rounding, sitter at bedside Patient-specific fall prevention interventions for sensory deficits provided, if applicable: [X] Yes, call morris within easy reach, side rails up x 2-3, nonslip socks or shoes on if OOB, PT consult CPG GOAL OUTCOME EVALUATION: * Plan of Care - Kristin Smith RN - 03/03/2018 6:08 PM EDT Problem: Patient Care Overview Goal: Plan of Care Review Outcome: Ongoing (Interventions Implemented as Appropriate) 02/25/18 0433 03/03/18 0845 Coping/Psychosocial Plan Of Care Reviewed With -- patient Plan of Care Review Progress no change -- OUTCOME EVALUATION NOTE: OUTCOME SUMMARY: Pt alert to self and place only. Continues to intermittently become agitated and yell out. Pt has been incontinent of urine x1, otherwise voiding adequate amounts, see I+Os. Continues on the 4000 mL fluid restriction, is currently at 2314 mL for the shift. Sitter remains at bedside. Continues to have excellent PO intake. No other acute events to note at this time. Will continue to monitor and notify MD of any changes. PLAN MOVING FORWARD: Encourage PO intake, discharge planning INDIVIDUALIZED FALL PREVENTION INTERVENTIONS: Patient-specific fall risk factors per assessment: [current deficits]: Poor safety awareness Assistance [level of assistance required for transfers and ambulation]: x2 assist w/ FWW Supervision [direct monitoring required during toileting and ADLs]: Hands on Surveillance [continuous indirect monitoring]: Sitter at bedside, room near nurses station, purposeful rounding Patient-specific fall prevention interventions for sensory deficits provided, if applicable: [X] Yes [facility]PG GOAL OUTCOME EVALUATION: * Plan of Care - Mary Jo Haro RN - 03/02/2018 7:13 PM EDT Problem: Patient Care Overview Goal: Plan of Care Review Outcome: Ongoing (Interventions Implemented as Appropriate) 02/25/18 0433 03/02/18 0910 Coping/Psychosocial Plan Of Care Reviewed With -- patient Plan of Care Review Progress no change -- OUTCOME EVALUATION NOTE: OUTCOME SUMMARY: Pt alert to self, VSS. See doc flows for system assessments. Echo performed at bedside today - pt tolerated well. Sitter present at bedside throughout shift. Pt behavorial at times - relaxation techniques promoted w/ minimal effect. Security contacted x1 r/t pt behavorial. Pt currently laying in bed being quiet. Will continue to monitor. PLAN MOVING FORWARD: Encourage activity, monitor IO INDIVIDUALIZED FALL PREVENTION INTERVENTIONS: Patient-specific fall risk factors per assessment: [current deficits]: Mobility at baseline Assistance [level of assistance required for transfers and ambulation]: 1-2 assist w/ walker Supervision [direct monitoring required during toileting and ADLs]: Hands on Surveillance [continuous indirect monitoring]: Hourly rounding, bed alarm on, room near nurses station Patient-specific fall prevention interventions for sensory deficits provided, if applicable: [X] Yes CPG GOAL OUTCOME EVALUATION: * Plan of Care - Ren Khan RN - 03/02/2018 2:13 AM EDT Problem: Patient Care Overview Goal: Plan of Care Review Outcome: Ongoing (Interventions Implemented as Appropriate) 03/02/18 0207 Coping/Psychosocial Plan Of Care Reviewed With patient OUTCOME EVALUATION NOTE: OUTCOME SUMMARY: Slept ok. Sitter in attendance overnight. Pt without pain. Neuro cognitive status unchanged. Movingself in bed, drinking/eating. Overall unchanged overnight. PLAN MOVING FORWARD: Monitor labs, vital signs. Monitor neuro cognitive status for changes. Encourage water intake r/t hypernatremia. 4 liter fluid restriction. Ambulate three times daily. Sitter at bedside. Offer urinalevery 4 hours. Continue supportive care. INDIVIDUALIZED FALL PREVENTION INTERVENTIONS: Patient-specific fall risk factors per assessment: [current deficits]: Pt blind, has neuro cognitive deficits, deconditioned. Not reliable to call. High risk to fall. Assistance [level of assistance required for transfers and ambulation]: Two person assist, walker Supervision [direct monitoring required during toileting and ADLs]: Hands on Surveillance [continuous indirect monitoring]: Purposeful hourly rounding, bed alarm, supervised activity, 24 hour sitter. Patient-specific fall prevention interventions for sensory deficits provided, if applicable: [X] Yes CPG GOAL OUTCOME EVALUATION: Goal: Individualization & Mutuality Outcome: Ongoing (Interventions Implemented as Appropriate) 01/25/18 0243 Individualization Patient Specific Preferences Enjoys icecream, applesauce or pudding for medications. Patient Specific Goals maintain safety, ambulate three times daily Goal: Fall Prevention-Safe Patient Handling Outcome: Ongoing (Interventions Implemented as Appropriate) 03/01/18214603/02/18199 Restraint Interventions Safety Promotion/Fall Prevention -- fall prevention program maintained;nonskid shoes/slippers when out of bed;safety round/check completed Activity Activity Type activity adjusted per tolerance -- Assistive Device Utilized front-wheel walker -- Positioning Body Position -- independent with trapeze/overhead bed frame [place] Fall Risk History of Falling 25 -- Secondary Diagnosis 15 -- Ambulatory Aids 15 -- Intravenous Therapy/Heparin/Saline Lock 0 -- Gait/Transferring 20 -- Mental Status 15 -- Score 90 -- OTHER [place] Fall Risk High -- Goal: Infection Control Outcome: Ongoing (Interventions Implemented as Appropriate) 03/01/18214603/02/18199 Coping Strategies Supportive Measures active listening utilized;verbalization of feelings encouraged -- Safety Interventions Isolation Precautions -- standard precautions maintained Infection Prevention -- rest/sleep promoted Goal: Discharge Needs Assessment Outcome: Ongoing (Interventions Implemented as Appropriate) 02/05/1853303/02/18206 Discharge Needs Assessment Concerns To Be Addressed basic needs concerns;care coordination/care conferences;cognitive/perceptual concerns;discharge planning concerns -- Discharge Disposition -- still a patient Problem: Skin Integrity Impairment, Risk/Actual (Adult) Goal: Skin Integrity/Wound Healing Patient will demonstrate the desired outcomes by discharge/transition of care. Outcome: Ongoing (Interventions Implemented as Appropriate) 03/02/18206 Skin Integrity Impairment, Risk/Actual (Adult) Skin Integrity/Wound Healing achieves outcome Problem: Fluid Volume Excess (Adult,Obstetrics,Pediatric) Goal: Stable Weight Patient will demonstrate the desired outcomes by discharge/transition of care. Outcome: Ongoing (Interventions Implemented as Appropriate) 03/02/18 0207 Fluid Volume Excess (Adult,Obstetrics,Pediatric) Stable Weight making progress toward outcome * Plan of Care - Sarika Michael RN - 03/01/2018 4:10 PM EDT Problem: Patient Care Overview Goal: Interdisciplinary Rounds/Family Conf Outcome: Ongoing (Interventions Implemented as Appropriate) 02/04/18 1756 Interdisciplinary Rounds/Family Conf Participants nursing;patient;physician OUTCOME EVALUATION NOTE: OUTCOME SUMMARY: AxOx3, disoriented to time, intermittently agitated and restless. VSS except tachycardia observed. Team aware, metoprolol increased. C/o pain to L knee, adequate relief with scheduled tylenol. Large BM, voiding with episodes of continence and incontinence. Pt ambulating with 2 assist and walker around unit x1. Team aware of high lipids and as a result labs that continue to hemolyze, planning for echo and repeat labs tomorrow in addition to new medications. EKG done today. Sitter remains at bedside. Good PO intake of fluids and foods. Will continue to monitor and page with any changes. PLAN MOVING FORWARD: Monitor vitals. Monitor labs. Echo tomorrow. Continue to encourage strength and mobility. INDIVIDUALIZED FALL PREVENTION INTERVENTIONS: Patient-specific fall risk factors per assessment: [current deficits]: Hx of falls, impaired mobility. Assistance [level of assistance required for transfers and ambulation]: 2 assist with walker. Supervision [direct monitoring required during toileting and ADLs]: Hands on. Surveillance [continuous indirect monitoring]: Hourly rounding, room near unit station, call morris within reach, bed alarm set, sitter at bedside. Patient-specific fall prevention interventions for sensory deficits provided, if applicable: [X] N/A CPG GOAL OUTCOME EVALUATION: * Plan of Care - Debbie Hale RN - 03/01/2018 3:25 AM EDT Problem: Patient Care Overview Goal: Plan of Care Review Outcome: Ongoing (Interventions Implemented as Appropriate) 02/25/18 0433 02/28/18 2200 Coping/Psychosocial Plan Of Care Reviewed With -- patient Plan of Care Review Progress no change -- OUTCOME EVALUATION NOTE: OUTCOME SUMMARY: Pt VSS, oriented to self and place only. Pt was resting more quietly tonight. Pt did not receive PRN. Pt denied pain. Pt was using urinal independently during shift. Sitter at bedside, will continue to monitor pt. PLAN MOVING FORWARD: Monitor LABS, VS, sitter at bedside, ambulate, encourage fluids(4000ml restriction), positive reinforcement INDIVIDUALIZED FALL PREVENTION INTERVENTIONS: Patient-specific fall risk factors per assessment: [current deficits]: Visual impairment, weakness,disoriented, behavioral Assistance [level of assistance required for transfers and ambulation]: 2 assist with walker Supervision [direct monitoring required during toileting and ADLs]: Hands on Surveillance [continuous indirect monitoring]: Sitter at bedside, room near unit station Patient-specific fall prevention interventions for sensory deficits provided, if applicable: [X] No CPG GOAL OUTCOME EVALUATION: * Plan of Care - Sarika Michael RN - 02/28/2018 6:09 PM EDT Problem: Patient Care Overview Goal: Fall Prevention-Safe Patient Handling Outcome: Ongoing (Interventions Implemented as Appropriate) 02/27/18201002/28/18 0945 02/28/18 1431 Restraint Interventions Safety Promotion/Fall Prevention -- -- -- Activity Activity Type -- -- ambulated in quinn Activity Assistance Provided -- -- assistance, 2 people Assistive Device Utilized -- -- front-wheel walker Positioning Body Position -- -- -- Daily Care Interventions Self-Care Promotion independence encouraged -- -- [place] Fall Risk History of Falling -- 25 -- Secondary Diagnosis -- 15 -- Ambulatory Aids -- 15 -- Intravenous Therapy/Heparin/Saline Lock -- 0 -- Gait/Transferring -- 20 -- Mental Status -- 15 -- Score -- 90 -- OTHER [place] Fall Risk -- High -- 02/28/18 1700 Restraint Interventions Safety Promotion/Fall Prevention fall prevention program maintained;safety round/check completed Activity Activity Type -- Activity Assistance Provided -- Assistive Device Utilized -- Positioning Body Position independent Daily Care Interventions Self-Care Promotion -- [place] Fall Risk History of Falling -- Secondary Diagnosis -- Ambulatory Aids -- Intravenous Therapy/Heparin/Saline Lock -- Gait/Transferring -- Mental Status -- Score -- OTHER [place] Fall Risk -- OUTCOME EVALUATION NOTE: OUTCOME SUMMARY: AxOx3, disoriented to situation often combative and aggressive. VSS on room air, except [id number] throughout morning. 3 samples drawn but hemolyzed (team aware but difficult to continue to stick patient ) EKG completed instead. Temperature of 101.4 axillary observed this afternoon in addition to continued tachycardia, pt denies any discomfort. U/A sent to lab, blood cultures drawn and sent to lab, discussed concerns regarding continued hemolyzation with specimens with MD, will continue to try and assess problem. New labs ordered for this morning. Pt ambulating around unit with 2 assist and walker. Incontinent of large BM and urine but continent urine later in day. Sitter remains at bedside. Pt continuing to tolerate PO fluids and food very well. Will continue to monitor and pagewith any changes. PLAN MOVING FORWARD: Monitor vitals. Monitor labs. Continue to encourage mobility. INDIVIDUALIZED FALL PREVENTION INTERVENTIONS: Patient-specific fall risk factors per assessment: [current deficits]: Hx of falls, impaired mobility, impulsivity. Assistance [level of assistance required for transfers and ambulation]: 2 assist with walker Supervision [direct monitoring required during toileting and ADLs]: Hands on. Surveillance [continuous indirect monitoring]: Hourly rounding, room near unit station, call morris within reach, bed alarm set. Patient-specific fall prevention interventions for sensory deficits provided, if applicable: [X] N/A CPG GOAL OUTCOME EVALUATION: * Plan of Care - Debbie Hale RN - 02/28/2018 3:39 AM EDT Problem: Patient Care Overview Goal: Plan of Care Review Outcome: Ongoing (Interventions Implemented as Appropriate) 02/25/18 0433 02/27/182010 Coping/Psychosocial Plan Of Care Reviewed With -- patient Plan of Care Review Progress no change -- OUTCOME EVALUATION NOTE: OUTCOME SUMMARY: Pt VSS, A&Ox3, disoriented to time and situation. Pt incontinent of urine, agitated. Yelling out and self inflicting pain at times. Efforts made to soothe pt not sustaining, Pt received PRN for agitation 1x with good effect. No significant changes overnight, pt is able to make needs known, pt safety maintained. will continue to monitor pt. PLAN MOVING FORWARD: Ambulate, PT on floor, encourage fluids/fluid restriction, monitor VS, encourage positive behavior,urinal use INDIVIDUALIZED FALL PREVENTION INTERVENTIONS: Patient-specific fall risk factors per assessment: [current deficits]: Confusion, behavioral, weakness, vision impaired Assistance [level of assistance required for transfers and ambulation]: 2 A Supervision [direct monitoring required during toileting and ADLs]: Hands on Surveillance [continuous indirect monitoring]: Sitter at bedside, room near unit station Patient-specific fall prevention interventions for sensory deficits provided, if applicable: [X] No CPG GOAL OUTCOME EVALUATION: * Plan of Care - Sarika Michael RN - 02/27/2018 3:45 PM EDT Problem: Patient Care Overview Goal: Interdisciplinary Rounds/Family Conf Outcome: Ongoing (Interventions Implemented as Appropriate) 02/04/18 1756 Interdisciplinary Rounds/Family Conf Participants nursing;patient;physician OUTCOME EVALUATION NOTE: OUTCOME SUMMARY: AxOx3, disoriented to situation at times. VSS on room air. Discussed occasional tachycardia with Dr. Vang, will continue to monitor and encourage fluids within fluid restriction. No c/o pain. Pt ambulating with 2 assist and walker [address] Bladder scan 771, pt able to void with encouragement in urinal. No BM today. Good PO intake, fluid restriction continues. Sitter remains at bedside. W ill continue to monitor and page with any changes. PLAN MOVING FORWARD: Monitor/manage pain. Monitor orientation and provide redirection when necessary. Monitor labs--> fluid intake-4L restriction. INDIVIDUALIZED FALL PREVENTION INTERVENTIONS: Patient-specific fall risk factors per assessment: [current deficits]: Hx of falls, intermittent impulsivity. Assistance [level of assistance required for transfers and ambulation]: 2 assist with walker. Supervision [direct monitoring required during toileting and ADLs]: Hands on. Surveillance [continuous indirect monitoring]: Hourly rounding, room near unit station, call morris within reach, sitter at bedside. Patient-specific fall prevention interventions for sensory deficits provided, if applicable: [X] N/A CPG GOAL OUTCOME EVALUATION: * Plan of Care - Diana Greco RN - 02/26/2018 3:35 PM EDT Problem: Patient Care Overview Goal: Plan of Care Review Outcome: Ongoing (Interventions Implemented as Appropriate) 02/25/18 0433 02/26/18 0831 Coping/Psychosocial Plan Of Care Reviewed With -- patient Plan of Care Review Progress no change -- OUTCOME SUMMARY: ? Pt oriented to self at this time. incontinence care provided prn. Safety maintained. Will continue to monitor. PLAN MOVING FORWARD: ? -Pain Control -Mobilize -d/c planning ? INDIVIDUALIZED FALL PREVENTION: ? Pt is at risk to fall due to weakness, medication regimen, confusion, blind ? Assistance:?? -1-2-assist with walker ? Supervision:? -hands-on/eyes on for all transfers and ambulation ? Surveillance:? -Bed Alarm/Chair Alarm -Purposeful Rounding -Team Care -Nurse Knowledge Exchange ? CPG OUTCOME EVALUATION: ?? * Plan of Care - Felecia Moran RN - 02/26/2018 6:27 AM EDT Problem: Patient Care Overview Goal: Plan of Care Review Outcome: Ongoing (Interventions Implemented as Appropriate) 02/25/18 0433 02/25/182007 Coping/Psychosocial Plan Of Care Reviewed With -- patient Plan of Care Review Progress no change -- OUTCOME EVALUATION NOTE: OUTCOME SUMMARY: Patient resting in bed quietly throughout shift. Sitter remains at bedside. Denied having any pain,compliant with care. Continues to be incontinent. No prn medications PLAN MOVING FORWARD: Discharge planning, attempting to increase activity INDIVIDUALIZED FALL PREVENTION INTERVENTIONS: Patient-specific fall risk factors per assessment: [current deficits]: Previous falls, pain Assistance [level of assistance required for transfers and ambulation]: 1-2A with FWW Supervision [direct monitoring required during toileting and ADLs]: Hands on Surveillance [continuous indirect monitoring]: Sitter at bedside Patient-specific fall prevention interventions for sensory deficits provided, if applicable: Yes, one step directions, patient blind CPG GOAL OUTCOME EVALUATION: * Plan of Care - Sarika Michael RN - 02/25/2018 3:34 PM EDT Problem: Fluid Volume Excess (Adult,Obstetrics,Pediatric) Goal: Balanced Intake/Output Patient will demonstrate the desired outcomes by discharge/transition of care. Outcome: Ongoing (Interventions Implemented as Appropriate) 02/24/18 1722 Fluid Volume Excess (Adult,Obstetrics,Pediatric) Balanced Intake/Output making progress toward outcome OUTCOME EVALUATION NOTE: OUTCOME SUMMARY: AxO to self and place. VSS on room air. C/o pain to L knee, some relief with scheduled tylenol and bengay. PRN ibuprofen given x1. Pt agitated this afternoon, requiring security to get back to bed. PRN seroquel given x1 during this moment. Pt incontinent of urine frequently. Fluid restriction continues, good PO intake. Pt up in wheelchair and able to push self around unit with encouragement and minimal assistance. Unable to walk pt, d/t combative behavior. Sitter remains at bedside. Will continue to monitor and page with any changes. PLAN MOVING FORWARD: Continue to encourage mobility. Monitor/manage pain. Fluid restriction. INDIVIDUALIZED FALL PREVENTION INTERVENTIONS: Patient-specific fall risk factors per assessment: [current deficits]: Hx of falls, impaired mobility. Assistance [level of assistance required for transfers and ambulation]: 2 assist with walker Supervision [direct monitoring required during toileting and ADLs]: Hands on. Surveillance [continuous indirect monitoring]: Hourly rounding, room near unit station, call morris within reach, bed alarm set, sitter at bedside. Patient-specific fall prevention interventions for sensory deficits provided, if applicable: [X] N/A CPG GOAL OUTCOME EVALUATION: * Plan of Care - Shruti Lozoya RN - 02/25/2018 4:49 AM EDT Problem: Patient Care Overview Goal: Plan of Care Review Outcome: Ongoing (Interventions Implemented as Appropriate) 02/25/18 0433 Coping/Psychosocial Plan Of Care Reviewed With patient Plan of Care Review Progress no change OUTCOME EVALUATION NOTE: OUTCOME SUMMARY: Pt admitted 09/02/17 after a fall and subsequent LLE fx. Pt is s/p repair and is currently awaiting rehab and placement bed. Pt calm overnight and cooperative with care, took all medswithout incident. Pt has been incontinent of urine multiple times this shift despite being offered urinal and toileting. Denies pain. Will continue to monitor and will inform MD of any changes. PLAN MOVING FORWARD: Closely monitor VS, labs, assessments. Medicate as needed and as ordered. Inform MD of any changes. Await placement. INDIVIDUALIZED FALL PREVENTION INTERVENTIONS: Patient-specific fall risk factors per assessment: [current deficits]: Weakness, behavioral changes Assistance [level of assistance required for transfers and ambulation]: 2 assist for transfers and ambulation as well as FWW Supervision [direct monitoring required during toileting and ADLs]: Hands on if OOB for toileting, 1 assist for ADLs Surveillance [continuous indirect monitoring]: Hourly rounding, bed alarm Patient-specific fall prevention interventions for sensory deficits provided, if applicable: [X] Yes, call morris within easy reach, side rails up x 3, nonslip socks on if OOB, PT consult CPG GOAL OUTCOME EVALUATION: * Plan of Care - Mavis Byers RN - 02/24/2018 5:28 PM EDT Problem: Patient Care Overview Goal: Plan of Care Review Outcome: Ongoing (Interventions Implemented as Appropriate) 02/24/18 0750 02/24/18 0803 Coping/Psychosocial Plan Of Care Reviewed With -- patient Plan of Care Review Progress no change -- OUTCOME EVALUATION NOTE: OUTCOME SUMMARY: Pt is alert and oriented x4. VSS. Physical assessment as documented. Able to voice needs and concerns. Pt ambulated to the commode for a BM today. One dose of Seroquel given today, with minimal effect. Refused to ambulate today. No acute events, will continue to monitor. PLAN MOVING FORWARD: Manage pain. Monitor I & O. Promote calm environment Encourage to ambulate INDIVIDUALIZED FALL PREVENTION INTERVENTIONS: Patient-specific fall risk factors per assessment: [current deficits]: IV, masimo, weakness, diagnosis, confusion Assistance [level of assistance required for transfers and ambulation]: 2-assist with walker Supervision [direct monitoring required during toileting and ADLs]: Hands on Surveillance [continuous indirect monitoring]: Bed side sitter, hourly rounding Patient-specific fall prevention interventions for sensory deficits provided, if applicable: [X] N/A CPG GOAL OUTCOME EVALUATION: * Plan of Care - Shruti Lozoya RN - 02/24/2018 7:56 AM EDT Problem: Patient Care Overview Goal: Plan of Care Review Outcome: Ongoing (Interventions Implemented as Appropriate) 02/24/18 0750 Coping/Psychosocial Plan Of Care Reviewed With patient Plan of Care Review Progress no change OUTCOME EVALUATION NOTE: OUTCOME SUMMARY: Pt admitted 09/02/17 after a fall and subsequent LLE fx. Pt s/p OR repair and is stable, awaiting placement. VSS overnight. Pt calm, quiet, cooperative with all care this shift. [place]lept[place]. Encouraged to drink 1 liter overnight, which he did. Voiding in urinal. Denies pain. Will continue to monitor. PLAN MOVING FORWARD: Closely monitor VS, labs, assessments. Medicate as needed and as ordered. Inform MD of any changes. Encourage OOB and ambulation. Await placement. INDIVIDUALIZED FALL PREVENTION INTERVENTIONS: Patient-specific fall risk factors per assessment: [current deficits]: Weakness, mental status, deconditioning Assistance [level of assistance required for transfers and ambulation]: 1-2 Assist OOB and FWW for transfers and ambulation Supervision [direct monitoring required during toileting and ADLs]: Hands on if OOB for toileting, 1 assist for ADLs Surveillance [continuous indirect monitoring]: Hourly rounding, bed alarm Patient-specific fall prevention interventions for sensory deficits provided, if applicable: [X] Yes, call morris within easy reach, side rails up x 2-3, nonslip socks on if OOB, PT consult CPG GOAL OUTCOME EVALUATION: * Plan of Care - Mike Estrada RN - 02/23/2018 5:47 PM EDT Problem: Patient Care Overview Goal: Plan of Care Review Outcome: Ongoing (Interventions Implemented as Appropriate) 02/23/185 02/23/18 1737 Coping/Psychosocial Plan Of Care Reviewed With -- patient Plan of Care Review Progress no change -- OUTCOME EVALUATION NOTE: OUTCOME SUMMARY: Patient remains alert and ISHAAN orientation, VSS. Napping this morning, increased agitation this afternoon, PRN Seroquel given. Patient refused to walk around unit today. No other changes, sitter remains at bedside, will continue to monitor. PLAN MOVING FORWARD: Continue to monitor labs, VS, placement INDIVIDUALIZED FALL PREVENTION INTERVENTIONS: Patient-specific fall risk factors per assessment: [current deficits]: Agitation, developmental delay Assistance [level of assistance required for transfers and ambulation]: Heavy 2 assist Supervision [direct monitoring required during toileting and ADLs]: Eyes on, hands on Surveillance [continuous indirect monitoring]: Sitter at bedside Goal: Fall Prevention-Safe Patient Handling Outcome: Ongoing (Interventions Implemented as Appropriate) 02/23/1890702/23/18 1700 Restraint Interventions Safety Promotion/Fall Prevention -- activity supervised Activity Activity Type activity adjusted per tolerance -- Activity Assistance Provided assistance, 2 people -- Assistive Device Utilized front-wheel walker -- Positioning Body Position independent -- Daily Care Interventions Self-Care Promotion independence encouraged;BADL personal objects within reach;BADL personal routines maintained -- [place] Fall Risk History of Falling 25 -- Secondary Diagnosis 15 -- Ambulatory Aids 15 -- Intravenous Therapy/Heparin/Saline Lock 0 -- Gait/Transferring 10 -- Mental Status 15 -- Score 80 -- OTHER [place] Fall Risk High -- Goal: Infection Control Outcome: Ongoing (Interventions Implemented as Appropriate) 02/23/18 0902/23/18 1700 Coping Strategies Supportive Measures active listening utilized;verbalization of feelings encouraged;self-care encouraged -- Safety Interventions Isolation Precautions -- standard precautions maintained Infection Prevention -- environmental surveillance performed * Plan of Care - Clare Montoya RN - 02/23/2018 4:45 AM EDT Problem: Patient Care Overview Goal: Plan of Care Review Outcome: Ongoing (Interventions Implemented as Appropriate) 02/23/18 0415 Coping/Psychosocial Plan Of Care Reviewed With patient Plan of Care Review Progress no change OUTCOME EVALUATION NOTE: OUTCOME SUMMARY: Full assessment as documented. Pt restless at start of shift, fell asleep after HS meds. Continent of urine with scheduled toileting. PLAN MOVING FORWARD: ?? Continue to monitor and assess, Sitter remains at bedside. Continue to ambulate with 2 assist when pt is willing to participate. ?? INDIVIDUALIZED FALL PREVENTION INTERVENTIONS: ?? Patient-specific fall risk factors per assessment: [current deficits]: High fall risk ?? Assistance [level of assistance required for transfers and ambulation]: 2 assist with walker ?? Supervision [direct monitoring required during toileting and ADLs]: Hands on ?? Surveillance [continuous indirect monitoring]: Hourly rounding, call morris within reach, bed left inlowest position, non skid socks on, sitter at bedside ?? Patient-specific fall prevention interventions for sensory deficits provided, if applicable: [X] N/A ?? CPG GOAL OUTCOME EVALUATION: * Plan of Care - Vandana Jean Baptiste RN - 02/22/2018 6:23 PM EDT Problem: Patient Care Overview Goal: Plan of Care Review Outcome: Ongoing (Interventions Implemented as Appropriate) 02/17/18 1833 02/22/18 1300 Coping/Psychosocial Plan Of Care Reviewed With -- patient Plan of Care Review Progress improving -- OUTCOME EVALUATION NOTE: OUTCOME SUMMARY: Pt is alert to self and place, VSS, HR tachy at times. Pt has been agitated throughout shift, PRN Seroquel was given with little effect. Attempted to ambulate pt but was unsuccessful. PLAN MOVING FORWARD: Continue to monitor and assess, Sitter remains at bedside INDIVIDUALIZED FALL PREVENTION INTERVENTIONS: Patient-specific fall risk factors per assessment: [current deficits]: High fall risk Assistance [level of assistance required for transfers and ambulation]: 2 assist with walker Supervision [direct monitoring required during toileting and ADLs]: Hands on Surveillance [continuous indirect monitoring]: Hourly rounding, call morris within reach, bed left inlowest position, non skid socks on, sitter at bedside Patient-specific fall prevention interventions for sensory deficits provided, if applicable: [X] N/A CPG GOAL OUTCOME EVALUATION: * Plan of Care - Mady Foss RN - 02/22/2018 4:56 AM EDT Problem: Patient Care Overview Goal: Plan of Care Review Outcome: Ongoing (Interventions Implemented as Appropriate) 02/17/18 1833 02/21/18 2122 Coping/Psychosocial Plan Of Care Reviewed With -- patient Plan of Care Review Progress improving -- OUTCOME EVALUATION NOTE: OUTCOME SUMMARY: Pt a+o, VSS, no c/o pain but often holding left knee and screaming. Did want bengay applied to leftknee. Up in wheelchair to stroll around the unit with staff. Wanted to walk but refused to use the walker so we didn't walk. Pt was brought outside to get some fresh air for a bit. Pt slept on and off overnight. No acute issues or events overnight. PLAN MOVING FORWARD: Continue to monitor. Placement. INDIVIDUALIZED FALL PREVENTION INTERVENTIONS: Patient-specific fall risk factors per assessment: [current deficits]: Significant weakness, pain, new environment, cognitive delay, high fall risk Assistance [level of assistance required for transfers and ambulation]: 2 assist with walker Supervision [direct monitoring required during toileting and ADLs]: Hands on eyes on Surveillance [continuous indirect monitoring]: 1:1 sitter at bedside Patient-specific fall prevention interventions for sensory deficits provided, if applicable: [X] Yes, sitter at bedside, pt is blind CPG GOAL OUTCOME EVALUATION: * Plan of Care - Vandana Jean Baptiste RN - 02/21/2018 5:42 PM EDT Problem: Patient Care Overview Goal: Plan of Care Review Outcome: Ongoing (Interventions Implemented as Appropriate) 02/17/18 1833 02/21/18 0903 Coping/Psychosocial Plan Of Care Reviewed With -- patient Plan of Care Review Progress improving -- OUTCOME EVALUATION NOTE: OUTCOME SUMMARY: Pt is alert to self and place, VSS, HR tachy at times. Pt was able to get up to the bathroom and was also successful with using the urinal. PRN Seroquel given x1 this morning for increased agitation,tolerated well. No acute changes PLAN MOVING FORWARD: Continue to monitor and assess, awaiting placement INDIVIDUALIZED FALL PREVENTION INTERVENTIONS: Patient-specific fall risk factors per assessment: [current deficits]: High fall risk Assistance [level of assistance required for transfers and ambulation]: 2 assist with walker Supervision [direct monitoring required during toileting and ADLs]: Hands on Surveillance [continuous indirect monitoring]: Hourly rounding, call morris within reach, bed left inlowest position, non skid socks on , sitter at bedside Patient-specific fall prevention interventions for sensory deficits provided, if applicable: [X] N/A CPG GOAL OUTCOME EVALUATION: * Plan of Care - Vandana Jean Baptiste RN - 02/20/2018 5:32 PM EDT Problem: Patient Care Overview Goal: Plan of Care Review Outcome: Ongoing (Interventions Implemented as Appropriate) 02/17/18 1833 02/20/18 0953 Coping/Psychosocial Plan Of Care Reviewed With -- patient Plan of Care Review Progress improving -- OUTCOME EVALUATION NOTE: OUTCOME SUMMARY: Pt is alert to self and place, VSS, HR tachy at times. Pt recived PRN Seroquel once today for increased agitation. Sitter remains at bedside. No acute changes PLAN MOVING FORWARD: Continue to monitor and assess, promote ambulation INDIVIDUALIZED FALL PREVENTION INTERVENTIONS: Patient-specific fall risk factors per assessment: [current deficits]: High fall risk Assistance [level of assistance required for transfers and ambulation]: 2 assist with walker Supervision [direct monitoring required during toileting and ADLs]: Hands on Surveillance [continuous indirect monitoring]: Hourly rounding, sitter at bedside, call morris withinreach, bed left in lowest position. Non skid socks on Patient-specific fall prevention interventions for sensory deficits provided, if applicable: [X] N/A CPG GOAL OUTCOME EVALUATION: * Plan of Care - Debbie Hale RN - 02/20/2018 3:21 AM EDT Problem: Patient Care Overview Goal: Plan of Care Review Outcome: Ongoing (Interventions Implemented as Appropriate) 02/17/18183202/19/18 2200 Coping/Psychosocial Plan Of Care Reviewed With -- patient Plan of Care Review Progress improving -- OUTCOME EVALUATION NOTE: OUTCOME SUMMARY: Pt alert to self and place. VSS. Pt restless and excitable for first half of the night, PRN Seroquel given with good effect. Pt incontinent of urine and stool, Pt initially refusing to cooperate withcare however was eventually redirected. Pt remains on fluid restriction, and has bedside, one on one sitter. Pt safety maintained, no significant changes. Will continue to monitor pt. PLAN MOVING FORWARD: Rehab here on unit, specifically stairs. Encourage self care and responsibility. Monitor VS INDIVIDUALIZED FALL PREVENTION INTERVENTIONS: Patient-specific fall risk factors per assessment: [current deficits]: Weakness, vision impairment,poor judgement Assistance [level of assistance required for transfers and ambulation]: 2assist with walker Supervision [direct monitoring required during toileting and ADLs]: Hands on Surveillance [continuous indirect monitoring]: One on one sitter at bedside, room near unit station Patient-specific fall prevention interventions for sensory deficits provided, if applicable: [X] Yes CPG GOAL OUTCOME EVALUATION: * Plan of Care - Mary Jo Haro RN - 02/19/2018 6:05 PM EDT Problem: Patient Care Overview Goal: Plan of Care Review Outcome: Ongoing (Interventions Implemented as Appropriate) 02/17/18183202/19/18 0923 Coping/Psychosocial Plan Of Care Reviewed With -- patient Plan of Care Review Progress improving -- OUTCOME EVALUATION NOTE: OUTCOME SUMMARY: Pt alert to self, VSS. See doc flows for system assessments. Pt cooperative with care with a majority of the shift. Walked around the unit x1 w/ 2 assist and a walker. Sitter present at bedside for shift. Behavioral outbursts intermittently throughout the day but pt was redirectable. Will continue to monitor. PLAN MOVING FORWARD: Maintain safety, encourage ambulation, monitor IO INDIVIDUALIZED FALL PREVENTION INTERVENTIONS: Patient-specific fall risk factors per assessment: [current deficits]: Mobility at baseline Assistance [level of assistance required for transfers and ambulation]: 2 assist w/ walker Supervision [direct monitoring required during toileting and ADLs]: Hands on Surveillance [continuous indirect monitoring]: Hourly rounding, bed alarm on, room near nurses station Patient-specific fall prevention interventions for sensory deficits provided, if applicable: [X] Yes CPG GOAL OUTCOME EVALUATION: * Plan of Care - Mike Estrada RN - 02/18/2018 4:29 PM EDT Problem: Patient Care Overview Goal: Plan of Care Review Outcome: Ongoing (Interventions Implemented as Appropriate) 02/17/18 1833 02/18/18 0755 Coping/Psychosocial Plan Of Care Reviewed With -- patient Plan of Care Review Progress improving -- OUTCOME EVALUATION NOTE: OUTCOME SUMMARY: Patient remains alert, ISHAAN orientation, VSS. Patient walked around unit with staff twice today. Given PRN Seroquel for increased agitation at 1600. No other changes, sitter remains at bedside, will continue to monitor. PLAN MOVING FORWARD: Continue to monitor labs, VS, pain control INDIVIDUALIZED FALL PREVENTION INTERVENTIONS: Patient-specific fall risk factors per assessment: [current deficits]: Confusion, agitation, cognitive impairment Assistance [level of assistance required for transfers and ambulation]: 2 A OOB Supervision [direct monitoring required during toileting and ADLs]: Sitter @ bedside Surveillance [continuous indirect monitoring]: Sitter @ bedside Goal: Fall Prevention-Safe Patient Handling Outcome: Ongoing (Interventions Implemented as Appropriate) 02/18/18 0755 02/18/18 1347 02/18/18 1516 Restraint Interventions Safety Promotion/Fall Prevention -- -- activity supervised;safety round/check completed Activity Activity Type -- ambulated in quinn -- Activity Assistance Provided -- assistance, 2 people -- Assistive Device Utilized -- front-wheel walker -- Positioning Body Position -- -- independent Daily Care Interventions Self-Care Promotion independence encouraged;BADL personal objects within reach;BADL personal routines maintained -- -- [place] Fall Risk History of Falling 25 -- -- Secondary Diagnosis 15 -- -- Ambulatory Aids 15 -- -- Intravenous Therapy/Heparin/Saline Lock 20 -- -- Gait/Transferring 10 -- -- Mental Status 15 -- -- Score 100 -- -- OTHER [place] Fall Risk High -- -- Goal: Infection Control Outcome: Ongoing (Interventions Implemented as Appropriate) 02/18/18 0755 02/18/18 1516 Coping Strategies Supportive Measures active listening utilized;verbalization of feelings encouraged;self-care encouraged -- Safety Interventions Isolation Precautions -- standard precautions maintained Infection Prevention -- environmental surveillance performed * Plan of Care - Emerald Rasheed RN - 02/18/2018 4:45 AM EDT Problem: Patient Care Overview Goal: Plan of Care Review Outcome: Ongoing (Interventions Implemented as Appropriate) 02/17/18 1833 02/17/181999 Coping/Psychosocial Plan Of Care Reviewed With -- patient Plan of Care Review Progress improving -- OUTCOME EVALUATION NOTE: OUTCOME SUMMARY: Patient alert, difficult to assess orientation though able to make needs known. Denies pain. Remains on room air. No incontinence this shift. Sitter remains at bedside. Will cont to monitor. PLAN MOVING FORWARD: Nursing staff to ambulate as able, discharge planning INDIVIDUALIZED FALL PREVENTION INTERVENTIONS: Patient-specific fall risk factors per assessment: [current deficits]: Weakness Assistance [level of assistance required for transfers and ambulation]: 2 assist w/ walker Supervision [direct monitoring required during toileting and ADLs]: Hands on Surveillance [continuous indirect monitoring]: Purposeful rounding, nurse knowledge exchange Patient-specific fall prevention interventions for sensory deficits provided, if applicable: No CPG GOAL OUTCOME EVALUATION: * Plan of Care - Jodee Azevedo RN - 02/17/2018 6:55 PM EDT Problem: Patient Care Overview Goal: Plan of Care Review Outcome: Ongoing (Interventions Implemented as Appropriate) 02/17/181832 Coping/Psychosocial Plan Of Care Reviewed With patient Plan of Care Review Progress improving OUTCOME EVALUATION NOTE: OUTCOME SUMMARY: Patient AAO to self, unable to answer properly place/time/date. VSS, Tolerating PO intake with goodappetite. PRN Seroquel 50 mg given 1x for episode of agitation with good effect. Shakeel Lizarraga applied toleft hip for pain. Ambulated around the entire unit with 3x assist and walker. PLAN MOVING FORWARD: Continue to encourage activity, monitor VSS INDIVIDUALIZED FALL PREVENTION INTERVENTIONS: Patient-specific fall risk factors per assessment: [current deficits]: impulsive, BLE weakness, cognitive deficits, blindness Assistance [level of assistance required for transfers and ambulation]: Assist x2/3 Supervision [direct monitoring required during toileting and ADLs]: assist x1 Surveillance [continuous indirect monitoring]: 1:1 sitter Patient Vitals for the past 24 hrs: BP Temp Temp src Pulse Resp SpO2 02/17/18 1738 120/72 37.2 ??C (99 ??F) Oral - 18 99 % 02/17/18 1304 112/64 36.5 ??C (97.7 ??F) Oral 88 16 99 % 02/17/18 0627 126/73 36.4 ??C (97.5 ??F) Oral 85 18 99 % Jodee Azevedo RN Goal: Infection Control Outcome: Ongoing (Interventions Implemented as Appropriate) 02/17/181832 Coping Strategies Supportive Measures positive reinforcement provided;problem solving facilitated Safety Interventions Isolation Precautions protective environment maintained Problem: Thought Process Alteration (Adult) Goal: Identify Related Risk Factors and Signs and Symptoms Related risk factors and signs and symptoms are identified upon initiation of Human Response Clinical Practice Guideline (CPG) Outcome: Ongoing (Interventions Implemented as Appropriate) 02/17/181832 Thought Process Alteration Related Risk Factors (Thought Process Alteration) pain;sensory impairment Signs and Symptoms (Thought Process Alteration) aggressive/combative behaviors;limited concentration/attention;mood lability Problem: Fluid Volume Excess (Adult,Obstetrics,Pediatric) Goal: Balanced Intake/Output Patient will demonstrate the desired outcomes by discharge/transition of care. Outcome: Ongoing (Interventions Implemented as Appropriate) 02/17/18 1833 Fluid Volume Excess (Adult,Obstetrics,Pediatric) Balanced Intake/Output making progress toward outcome * Plan of Care - Rony De La Fuente RN - 02/17/2018 3:10 AM EDT Problem: Patient Care Overview Goal: Plan of Care Review Outcome: Ongoing (Interventions Implemented as Appropriate) 02/16/18 1719 02/16/182129 Coping/Psychosocial Plan Of Care Reviewed With -- patient Plan of Care Review Progress improving -- OUTCOME EVALUATION NOTE: OUTCOME SUMMARY: Pt resting comfortably in bed during the night with no major changes or complaints. Pt continues isha intermittently incontinent of urine. Sitter at bedside continues. PLAN MOVING FORWARD: Promote mobility, encourage po intake of fluids INDIVIDUALIZED FALL PREVENTION INTERVENTIONS: Patient-specific fall risk factors per assessment: [current deficits]: gen weakness, cognitive limitations. Assistance [level of assistance required for transfers and ambulation]: 2a, walker gait belt Supervision [direct monitoring required during toileting and ADLs]: Hands on Surveillance [continuous indirect monitoring]: Sitter 1:1 Patient-specific fall prevention interventions for sensory deficits provided, if applicable: [X] Yes CPG GOAL OUTCOME EVALUATION: Goal: Individualization & Mutuality Outcome: Ongoing (Interventions Implemented as Appropriate) 10/17/17 1745 11/18/17 0546 01/25/18 0243 Individualization Patient Specific Preferences -- -- Enjoys icecream, applesauce or pudding for medications. Patient Specific Goals -- -- maintain safety, ambulate three times daily Patient Specific Interventions -- -- encourage ambulation, restrict fluids Mutuality/Individual Preferences What Anxieties, Fears or Concerns Do You Have About Your Health or Care? ISHAAN -- -- What Questions Do You Have About Your Health or Care? ISHAAN -- -- What Information Would Help Us Give You More Personalized Care? -- SisterBettina, is his guardian -- Goal: Fall Prevention-Safe Patient Handling Outcome: Ongoing (Interventions Implemented as Appropriate) 02/16/18 1311 02/16/18 2130 Restraint Interventions Safety Promotion/Fall Prevention -- fall prevention program maintained;safety round/check completed;nonskid shoes/slippers when out of bed;muscle strengthening facilitated Activity Activity Type -- activity adjusted per tolerance Activity Assistance Provided -- assistance, 2 people Assistive Device Utilized -- front-wheel walker Positioning Body Position -- independent Daily Care Interventions Self-Care Promotion independence encouraged -- [place] Fall Risk History of Falling -- 25 Secondary Diagnosis -- 15 Ambulatory Aids -- 15 Intravenous Therapy/Heparin/Saline Lock -- 0 Gait/Transferring -- 10 Mental Status -- 15 Score -- 80 OTHER [place] Fall Risk -- High Goal: Infection Control Outcome: Ongoing (Interventions Implemented as Appropriate) 02/16/18171802/16/182129 Coping Strategies Supportive Measures positive reinforcement provided -- Safety Interventions Isolation Precautions -- standard precautions maintained Infection Prevention -- environmental surveillance performed;rest/sleep promoted;single patient room provided * Plan of Care - Jodee Azevedo RN - 02/16/2018 5:32 PM EDT Problem: Patient Care Overview Goal: Plan of Care Review Outcome: Ongoing (Interventions Implemented as Appropriate) 02/16/181718 Coping/Psychosocial Plan Of Care Reviewed With patient Plan of Care Review Progress improving OUTCOME EVALUATION NOTE: OUTCOME SUMMARY: Patient AAO to self, unsure of time/situtation/place, VSS, tolerating PO intake throughout shift; up to commode for vary large BM, gave PRN Seroquel 50 mg 1x during episode of restless/agitation/screeming as patient requested/ with good effect. 1:1 Sitter at bedside. PLAN MOVING FORWARD: Will continue to monitor VSS, labs, I&O's, INDIVIDUALIZED FALL PREVENTION INTERVENTIONS: Patient-specific fall risk factors per assessment: [current deficits]: Cognitive deficit, behavorial deficit, generalized weakness, LLE weakness/pain Assistance [level of assistance required for transfers and ambulation]: Assist x1 with walker Supervision [direct monitoring required during toileting and ADLs]: Assist x2 when up to commode Surveillance [continuous indirect monitoring]: Jeet 1:1 sitter Patient Vitals for the past 24 hrs: BP Temp Temp src Pulse Resp SpO2 02/16/18 0618 122/88 37 ??C (98.6 ??F) Oral 76 15 98 % 02/15/182052 118/83 36.8 ??C (98.2 ??F) Oral 87 19 97 % Jodee Azevedo RN Goal: Infection Control Outcome: Ongoing (Interventions Implemented as Appropriate) 02/16/18 1719 Coping Strategies Supportive Measures positive reinforcement provided Safety Interventions Isolation Precautions standard precautions maintained Infection Prevention single patient room provided Problem: Skin Integrity Impairment, Risk/Actual (Adult) Goal: Skin Integrity/Wound Healing Patient will demonstrate the desired outcomes by discharge/transition of care. Outcome: Ongoing (Interventions Implemented as Appropriate) 02/16/18 1719 Skin Integrity Impairment, Risk/Actual (Adult) Skin Integrity/Wound Healing making progress toward outcome Problem: Fluid Volume Excess (Adult,Obstetrics,Pediatric) Goal: Balanced Intake/Output Patient will demonstrate the desired outcomes by discharge/transition of care. Outcome: Ongoing (Interventions Implemented as Appropriate) 02/16/181718 Fluid Volume Excess (Adult,Obstetrics,Pediatric) Balanced Intake/Output making progress toward outcome * Plan of Care - Latrice Hoff RN - 02/16/2018 6:25 AM EDT Problem: Patient Care Overview Goal: Plan of Care Review Outcome: Ongoing (Interventions Implemented as Appropriate) 02/16/18 0621 Coping/Psychosocial Plan Of Care Reviewed With patient Plan of Care Review Progress progress toward functional goals as expected OUTCOME EVALUATION NOTE: OUTCOME SUMMARY: Pt disoriented to time and situation. VSS. Scheduled medications given. Sitter at bedside maintained. Fluid restriction maintained. Voiding in urinal intermittently Pt sleeping between care. PLAN MOVING FORWARD: Encourage mobility, prepare for d/c when appropriate INDIVIDUALIZED FALL PREVENTION INTERVENTIONS: Patient-specific fall risk factors per assessment: [current deficits]: High fall risk, generalized weakness, Left hip repair Assistance [level of assistance required for transfers and ambulation]: 2 assist with front-wheel walker Supervision [direct monitoring required during toileting and ADLs]: Hands-on Surveillance [continuous indirect monitoring]: Hourly rounding, bed alarm, sitter at bedside Patient-specific fall prevention interventions for sensory deficits provided, if applicable: [X] Yes CPG GOAL OUTCOME EVALUATION: * Plan of Care - Rony De La Fuente RN - 02/15/2018 6:11 PM EDT Problem: Patient Care Overview Goal: Plan of Care Review Outcome: Ongoing (Interventions Implemented as Appropriate) 02/13/18 1752 02/15/18 1107 Coping/Psychosocial Plan Of Care Reviewed With -- patient Plan of Care Review Progress no change -- OUTCOME EVALUATION NOTE: OUTCOME SUMMARY: Pt assisted to ambulate around the unit. Pt able to make it about 3/4ths around. Pt continues to intermittently yell, mostly inconsolably. Pt incontinent of stool and urine during the day despite efforts to offer urinal and bathroom trips frequently. 1:1 sitter maintained. PO fluids pushed. Miralaxgiven. PLAN MOVING FORWARD: Push PO meds, attempts to ambulate, progress towards rehab/dc INDIVIDUALIZED FALL PREVENTION INTERVENTIONS: Patient-specific fall risk factors per assessment: [current deficits]: Leg pain, cognitive impairments, gen weakness, Assistance [level of assistance required for transfers and ambulation]: 1-2 a with walker gait belt Supervision [direct monitoring required during toileting and ADLs]: Hand on Surveillance [continuous indirect monitoring]: 1:1 sitter Patient-specific fall prevention interventions for sensory deficits provided, if applicable: [X] Yes CPG GOAL OUTCOME EVALUATION: Goal: Individualization & Mutuality Outcome: Ongoing (Interventions Implemented as Appropriate) 10/17/17 1745 11/18/17 0546 01/25/18 0243 Individualization Patient Specific Preferences -- -- Enjoys icecream, applesauce or pudding for medications. Patient Specific Goals -- -- maintain safety, ambulate three times daily Patient Specific Interventions -- -- encourage ambulation, restrict fluids Mutuality/Individual Preferences What Anxieties, Fears or Concerns Do You Have About Your Health or Care? ISHAAN -- -- What Questions Do You Have About Your Health or Care? ISHAAN -- -- What Information Would Help Us Give You More Personalized Care? -- Sister, Bettina, is his guardian -- Goal: Fall Prevention-Safe Patient Handling Outcome: Ongoing (Interventions Implemented as Appropriate) 02/15/18 0600 02/15/18 1107 02/15/18 1400 Restraint Interventions Safety Promotion/Fall Prevention -- safety round/check completed -- Activity Activity Type -- -- ambulated in [place] Activity Assistance Provided -- -- assistance, 1 person Assistive Device Utilized -- -- front-wheel walker;gait belt Positioning Body Position -- independent -- Daily Care Interventions Self-Care Promotion independence encouraged -- -- [place] Fall Risk History of Falling -- 25 -- Secondary Diagnosis -- 15 -- Ambulatory Aids -- 15 -- Intravenous Therapy/Heparin/Saline Lock -- 0 -- Gait/Transferring -- 10 -- Mental Status -- 15 -- Score -- 80 -- OTHER [place] Fall Risk -- High -- Goal: Infection Control Outcome: Ongoing (Interventions Implemented as Appropriate) 02/14/18214602/15/181106 Coping Strategies Supportive Measures active listening utilized;positive reinforcement provided;problem solving facilitated;self-care encouraged;relaxation techniques promoted;verbalization of feelings encouraged -- Safety Interventions Isolation Precautions -- standard precautions maintained Infection Prevention -- single patient room provided;rest/sleep promoted;environmental surveillanceperformed * Plan of Care - Debbie Hale RN - 02/15/2018 3:46 AM EDT Problem: Patient Care Overview Goal: Plan of Care Review Outcome: Ongoing (Interventions Implemented as Appropriate) 02/13/18175102/14/182146 Coping/Psychosocial Plan Of Care Reviewed With -- patient Plan of Care Review Progress no change -- OUTCOME EVALUATION NOTE: OUTCOME SUMMARY: Pt BP high due to agitation , pt was agitated for a good part of the night Intermittently. Pt did have pain in right hip but was resolved with Shakeel lizarraga and scheduled tylenol. Pt is Alert to place and self. Pt did take meds, however refused to use urinal at times and had instances of incontinence. Ptwas throwing his pillow at staff while yelling. Different calming techniques were utilized. Pt is now resting quietly in bed with eyes closed. Pt safety maintained. Will continue to monitor pt. PLAN MOVING FORWARD: Monitor VS, rehab here ambulate pt, Pt up in chair when possible,. Calming trchniques and positive reinforcement, pain management INDIVIDUALIZED FALL PREVENTION INTERVENTIONS: Patient-specific fall risk factors per assessment: [current deficits]: Disorientation, weakness, behavioral, vision impaired Assistance [level of assistance required for transfers and ambulation]: 2-3A with walker Supervision [direct monitoring required during toileting and ADLs]: Hands on Surveillance [continuous indirect monitoring]: One on on sitter at bedside at all times, room near unit station, purposeful rounding Patient-specific fall prevention interventions for sensory deficits provided, if applicable: [X] Yes CPG GOAL OUTCOME EVALUATION: * Plan of Care - Debbie Hale RN - 02/14/2018 1:00 AM EDT Problem: Patient Care Overview Goal: Plan of Care Review Outcome: Ongoing (Interventions Implemented as Appropriate) 02/13/18 1752 02/13/182010 Coping/Psychosocial Plan Of Care Reviewed With -- patient Plan of Care Review Progress no change -- OUTCOME EVALUATION NOTE: OUTCOME SUMMARY: Pt Oriented to self, and place. BP elevated and HR tachy when checked at beginning of shift, however pt was agitated when vitals were taken. Pt was given evening meds per SEP and has settled down with calming techniques and one on one sitter at bedside . Pt was both continent and incontinent, incontinent when agitated and verbalizing refusal to use his urinal during these times. Pt safety has been maintained, pt is able to make needs known, will continue to monitor pt. PLAN MOVING FORWARD: Rehab here, encourage ambulation, fluid restriction, one on one sitter INDIVIDUALIZED FALL PREVENTION INTERVENTIONS: Patient-specific fall risk factors per assessment: [current deficits]: Vision impaired, weakness, confusion, behavioral Assistance [level of assistance required for transfers and ambulation]: 2A with walker, 1A in bed Supervision [direct monitoring required during toileting and ADLs]: Eyes on , hands on OOB Surveillance [continuous indirect monitoring]: one on one sitter, purposeful rounding, room near unit station Patient-specific fall prevention interventions for sensory deficits provided, if applicable: [X] Yes CPG GOAL OUTCOME EVALUATION: * Plan of Care - Mavis Byers RN - 02/13/2018 5:55 PM EDT Problem: Patient Care Overview Goal: Plan of Care Review Outcome: Ongoing (Interventions Implemented as Appropriate) 02/13/18 1752 Coping/Psychosocial Plan Of Care Reviewed With patient Plan of Care Review Progress no change OUTCOME EVALUATION NOTE: OUTCOME SUMMARY: Pt is alert and oriented x4. VSS. Physical assessment as documented. Able to voice needs and concerns. No changes with miguel angel. Refused to ambulate out of bed. Incontinent of urine this afternoon. No acute events. PLAN MOVING FORWARD: Manage pain Promote a clam environment Encourage ambulation INDIVIDUALIZED FALL PREVENTION INTERVENTIONS: Patient-specific fall risk factors per assessment: [current deficits]: Diagnosis, history of falls,behavorial Assistance [level of assistance required for transfers and ambulation]: 1-assist with walker Supervision [direct monitoring required during toileting and ADLs]: Hands on Surveillance [continuous indirect monitoring]: Sitter at bedside Patient-specific fall prevention interventions for sensory deficits provided, if applicable: [X] Yes, pt is blind CPG GOAL OUTCOME EVALUATION: * Plan of Care - Debbie Hale RN - 02/13/2018 1:53 AM EDT Problem: Patient Care Overview Goal: Plan of Care Review Outcome: Ongoing (Interventions Implemented as Appropriate) 02/05/18 0536 02/12/18 1947 Coping/Psychosocial Plan Of Care Reviewed With -- patient Plan of Care Review Progress no change -- OUTCOME EVALUATION NOTE: OUTCOME SUMMARY: Pt A&O to self and place. Pt is calm and cooperative tonight, Pt singing along with radio and resting in bed. Pt has been utilizing urinal for the entire evening thus far with no incontinence. Ptis able to make needs known,.pt denies pain. No significant changes overnight. Will continue to monitor pt. PLAN MOVING FORWARD: Rehab here, encourage ambulation, fluid restriction. Provide positive reinforcement, one on one sitter INDIVIDUALIZED FALL PREVENTION INTERVENTIONS: Patient-specific fall risk factors per assessment: [current deficits]: Weakness, vision impairment,disoriented Assistance [level of assistance required for transfers and ambulation]: 2A with walker Supervision [direct monitoring required during toileting and ADLs]: Hands on Surveillance [continuous indirect monitoring]: Eyes on, call morris within reach, room near unit station, one on one sitter at bedside at all times Patient-specific fall prevention interventions for sensory deficits provided, if applicable: [X] Yes CPG GOAL OUTCOME EVALUATION: * Plan of Care - Mavis Byers RN - 02/12/2018 5:24 PM EDT Problem: Patient Care Overview Goal: Plan of Care Review Outcome: Ongoing (Interventions Implemented as Appropriate) 02/05/18 0536 02/12/18 0815 Coping/Psychosocial Plan Of Care Reviewed With -- patient Plan of Care Review Progress no change -- OUTCOME EVALUATION NOTE: OUTCOME SUMMARY: Pt is alert, oriented to self/place. VSS. Physical assessment as documented. Able to voice needs and concerns. Pt was incon. Of stool today, but thought to be behavorial. Walked about half way aroundthe unit and had to be brought back to his room. Received a dose of Seroquel (see MAR). No acute events, will continue to monitor. PLAN MOVING FORWARD: Monitor VS. Monitor I & O. Encourage ambulation Promote a quiet/calm environment INDIVIDUALIZED FALL PREVENTION INTERVENTIONS: Patient-specific fall risk factors per assessment: [current deficits]: Diagnosis, confusion, impulsive behavior. Assistance [level of assistance required for transfers and ambulation]: 1-2 assist with walker Supervision [direct monitoring required during toileting and ADLs]: Hands on Surveillance [continuous indirect monitoring]: Bed alarm, hourly rounding, sitter at bedside Patient-specific fall prevention interventions for sensory deficits provided, if applicable: [X] N/A CPG GOAL OUTCOME EVALUATION: * Plan of Care - Samantha Mix RN - 02/12/2018 5:19 AM EDT Problem: Patient Care Overview Goal: Plan of Care Review Outcome: Ongoing (Interventions Implemented as Appropriate) 02/05/18 0536 02/11/182119 Coping/Psychosocial Plan Of Care Reviewed With -- patient Plan of Care Review Progress no change -- OUTCOME EVALUATION NOTE: OUTCOME SUMMARY: Pt alert, oriented to self and place. Pt denying pain overnight, cooperative with care. Pt assisting to move in bed with overhead trapeze bar, his hand accidentally slipped and he hit himself in the mouth. Small open area to right upper lip noted and bleeding. Area cleaned with sterile gauze, no further bleeding noted, ice applied for short period of time- denying pain at site. Pt tolerated scheduled meds well, no acute changes overnight. Will continue to monitor. PLAN MOVING FORWARD: increase ambulation, placement INDIVIDUALIZED FALL PREVENTION INTERVENTIONS: Patient-specific fall risk factors per assessment: [current deficits]: Assistance [level of assistance required for transfers and ambulation]: 2x assist Supervision [direct monitoring required during toileting and ADLs]: Hourly rounding, bed in low position Surveillance [continuous indirect monitoring]: Sitter at bedside Patient-specific fall prevention interventions for sensory deficits provided, if applicable: [X] Yes CPG GOAL OUTCOME EVALUATION: Goal: Individualization & Mutuality Outcome: Ongoing (Interventions Implemented as Appropriate) 10/17/17 1745 11/18/17 0546 01/25/18 0243 Individualization Patient Specific Preferences -- -- Enjoys icecream, applesauce or pudding for medications. Patient Specific Goals -- -- maintain safety, ambulate three times daily Patient Specific Interventions -- -- encourage ambulation, restrict fluids Mutuality/Individual Preferences What Anxieties, Fears or Concerns Do You Have About Your Health or Care? ISHAAN -- -- What Questions Do You Have About Your Health or Care? ISHAAN -- -- What Information Would Help Us Give You More Personalized Care? -- Sister, Bettina, is his guardian -- Goal: Fall Prevention-Safe Patient Handling Outcome: Ongoing (Interventions Implemented as Appropriate) 02/11/18 0600 02/11/18211902/12/18 0148 Restraint Interventions Safety Promotion/Fall Prevention -- -- fall prevention program maintained Activity Activity Type -- -- activity adjusted per tolerance Activity Assistance Provided -- -- assistance, 2 people Assistive Device Utilized -- -- front-wheel walker Positioning Body Position -- -- independent Daily Care Interventions Self-Care Promotion independence encouraged -- -- [place] Fall Risk History of Falling -- 25 -- Secondary Diagnosis -- 15 -- Ambulatory Aids -- 15 -- Intravenous Therapy/Heparin/Saline Lock -- 0 -- Gait/Transferring -- 10 -- Mental Status -- 15 -- Score -- 80 -- OTHER [place] Fall Risk -- High -- Goal: Infection Control Outcome: Ongoing (Interventions Implemented as Appropriate) 02/11/18 0845 02/12/18 0148 Coping Strategies Supportive Measures verbalization of feelings encouraged -- Safety Interventions Isolation Precautions -- standard precautions maintained Infection Prevention -- rest/sleep promoted Goal: Discharge Needs Assessment Outcome: Ongoing (Interventions Implemented as Appropriate) 01/05/18 2216 02/05/18 0534 02/11/18 1717 Discharge Needs Assessment Concerns To Be Addressed -- basic needs concerns;care coordination/care conferences;cognitive/perceptual concerns;discharge planning concerns -- Readmission Within The Last 30 Days -- no previous admission in last 30 days -- Provider Choice List(s) Given yes -- -- Equipment Needed After Discharge wheelchair;walker, rolling -- -- Discharge Facility/Level Of Care Needs assisted living facility;nursing facility, skilled;nursing facility, basic -- -- Current Discharge Risk -- chronically ill;cognitively impaired;dependent with mobility/activities of daily living -- Discharge Disposition -- -- still a patient Current Health Outpatient/Agency/Support Group Needs assisted living facility (specify);nursing home (specify) -- -- Anticipated Changes Related to Illness -- none -- Living Environment Transportation Available agency transportation;van, wheelchair accessible;ambulance -- -- Activity/Self Care Review of Systems Equipment Currently Used at Home none -- -- * Plan of Care - Emili Gavin RN - 02/11/2018 5:47 PM EDT Problem: Patient Care Overview Goal: Plan of Care Review Outcome: Ongoing (Interventions Implemented as Appropriate) 02/05/18 0536 02/11/18 0845 Coping/Psychosocial Plan Of Care Reviewed With -- patient Plan of Care Review Progress no change -- OUTCOME EVALUATION NOTE: ? OUTCOME SUMMARY:Miguel Angel Mason is a 27 y.o. male pt alert to self, agitated and at times yelling and throwing objects at staff. PRN PO Seroquel given x1 with little effect. Pt VSS when pt allows staff to take them. See doc flows for system assessments. Pt had minimal episodes of incontinence. Sleeping in between care for most of shift. Sitter present at bedside throughout shift. Will continue to monitor. Pt walked in room. ? PLAN MOVING FORWARD: ? Maintain safety, monitor IO, activity as tolerated. ? INDIVIDUALIZED FALL PREVENTION INTERVENTIONS: ? Patient-specific fall risk factors per assessment: [current deficits]: High fall risk: Pain, blind?Mobility at baseline ? Assistance [level of assistance required for transfers and ambulation]:??2 assist w/ walker ? Supervision [direct monitoring required during toileting and ADLs]:?Hands on ? Surveillance [continuous indirect monitoring]:?Hourly rounding, bed alarm on, room near nurses station, Sitter at bedside ? Patient-specific fall prevention interventions for sensory deficits provided, if applicable:?[X]Yes ? CPG GOAL OUTCOME EVALUATION:?Ongoing Goal: Fall Prevention-Safe Patient Handling Outcome: Ongoing (Interventions Implemented as Appropriate) 02/11/18 0600 02/11/18 0802/11/18 1600 Restraint Interventions Safety Promotion/Fall Prevention -- -- activity supervised;fall prevention program maintained;nonskid shoes/slippers when out of bed;safety round/check completed Activity Activity Type -- -- activity adjusted per tolerance Activity Assistance Provided -- -- assistance, 2 people Assistive Device Utilized -- -- front-wheel walker Positioning Body Position -- -- independent Daily Care Interventions Self-Care Promotion independence encouraged -- -- [place] Fall Risk History of Falling -- 25 -- Secondary Diagnosis -- 15 -- Ambulatory Aids -- 15 -- Intravenous Therapy/Heparin/Saline Lock -- 0 -- Gait/Transferring -- 10 -- Mental Status -- 15 -- Score -- 80 -- OTHER [place] Fall Risk -- High -- Goal: Infection Control Outcome: Ongoing (Interventions Implemented as Appropriate) 02/11/18 0845 02/11/18 1600 Coping Strategies Supportive Measures verbalization of feelings encouraged -- Safety Interventions Isolation Precautions -- standard precautions maintained Infection Prevention -- rest/sleep promoted;single patient room provided;environmental surveillanceperformed Goal: Discharge Needs Assessment Outcome: Ongoing (Interventions Implemented as Appropriate) 02/11/18 171 Discharge Needs Assessment Discharge Disposition still a patient Goal: Interdisciplinary Rounds/Family Conf Outcome: Ongoing (Interventions Implemented as Appropriate) 02/04/18 1756 Interdisciplinary Rounds/Family Conf Participants nursing;patient;physician Problem: Skin Integrity Impairment, Risk/Actual (Adult) Goal: Identify Related Risk Factors and Signs and Symptoms Related risk factors and signs and symptoms are identified upon initiation of Human Response Clinical Practice Guideline (CPG) Outcome: Ongoing (Interventions Implemented as Appropriate) 09/12/17 1342 01/10/18 0503 Skin Integrity Impairment, Risk/Actual Skin Integrity Impairment, Risk/Actual: Related Risk Factors -- cognitive impairment;fluid/nutrition status Signs and Symptoms (Skin Integrity Impairment) edema -- Goal: Skin Integrity/Wound Healing Patient will demonstrate the desired outcomes by discharge/transition of care. Outcome: Ongoing (Interventions Implemented as Appropriate) 02/11/18 171 Skin Integrity Impairment, Risk/Actual (Adult) Skin Integrity/Wound Healing making progress toward outcome Problem: Thought Process Alteration (Adult) Goal: Identify Related Risk Factors and Signs and Symptoms Related risk factors and signs and symptoms are identified upon initiation of Human Response Clinical Practice Guideline (CPG) Outcome: Ongoing (Interventions Implemented as Appropriate) 12/03/17 0528 02/10/18 1732 Thought Process Alteration Related Risk Factors (Thought Process Alteration) sleep deprivation;functional decline -- Signs and Symptoms (Thought Process Alteration) -- mood lability;irritability/restlessness/agitation Problem: Fluid Volume Excess (Adult,Obstetrics,Pediatric) Goal: Stable Weight Patient will demonstrate the desired outcomes by discharge/transition of care. Outcome: Ongoing (Interventions Implemented as Appropriate) 02/11/181716 Fluid Volume Excess (Adult,Obstetrics,Pediatric) Stable Weight making progress toward outcome Goal: Balanced Intake/Output Patient will demonstrate the desired outcomes by discharge/transition of care. Outcome: Ongoing (Interventions Implemented as Appropriate) 02/11/18 171 Fluid Volume Excess (Adult,Obstetrics,Pediatric) Balanced Intake/Output making progress toward outcome * Plan of Care - Mary Jo Haro RN - 02/11/2018 7:46 AM EDT Problem: Patient Care Overview Goal: Plan of Care Review Outcome: Ongoing (Interventions Implemented as Appropriate) 02/05/18 0536 02/10/18 2110 Coping/Psychosocial Plan Of Care Reviewed With -- patient Plan of Care Review Progress no change -- OUTCOME EVALUATION NOTE: OUTCOME SUMMARY: Pt alert to self, intermittently agitated/irritable. VSS when pt lets staff take them. Sleeping in between care. Sitter present at bedside throughout the night. Will continue to monitor. PLAN MOVING FORWARD: Maintain safety, activity as tolerated INDIVIDUALIZED FALL PREVENTION INTERVENTIONS: Patient-specific fall risk factors per assessment: [current deficits]: Mobility at baseline Assistance [level of assistance required for transfers and ambulation]: 1-2 assist w/ walker Supervision [direct monitoring required during toileting and ADLs]: Hands on Surveillance [continuous indirect monitoring]: Call morris within reach, hourly rounding, bed alarm on Patient-specific fall prevention interventions for sensory deficits provided, if applicable: [X] Yes CPG GOAL OUTCOME EVALUATION: * Plan of Care - Emili Gavin RN - 02/10/2018 6:36 PM EDT Problem: Patient Care Overview Goal: Plan of Care Review Outcome: Ongoing (Interventions Implemented as Appropriate) 02/05/18 0536 02/10/18 0914 Coping/Psychosocial Plan Of Care Reviewed With -- patient Plan of Care Review Progress no change -- OUTCOME EVALUATION NOTE: ?? OUTCOME SUMMARY: ?? Pt alert to self, agitated and times yelling and throwing objects at staff. PRN PO Seroquel given x1 with little effect. VSS when pt allows staff to take them. See doc flows for system assessments. Pt continues to be intermittently incontinent even though staff offers the urinal frequently - use ofurinal and verbalization of when pt needs to urinate encouraged w/ minimal effect. Sleeping in between care for most of night. Sitter present at bedside throughout shift. Will continue to monitor. Ptwalked and went off unit with staff. ?? PLAN MOVING FORWARD: ?? Maintain safety, monitor IO, activity as tolerated ?? INDIVIDUALIZED FALL PREVENTION INTERVENTIONS: ?? Patient-specific fall risk factors per assessment: [current deficits]: High fall risk: Pain, blind Mobility at baseline ?? Assistance [level of assistance required for transfers and ambulation]: 2 assist w/ walker ?? Supervision [direct monitoring required during toileting and ADLs]: Hands on ?? Surveillance [continuous indirect monitoring]: Hourly rounding, bed alarm on, room near nurses station, Sitter at bedside ?? Patient-specific fall prevention interventions for sensory deficits provided, if applicable: [X] Yes ? CPG GOAL OUTCOME EVALUATION: Ongoing ?? Goal: Fall Prevention-Safe Patient Handling Outcome: Ongoing (Interventions Implemented as Appropriate) 02/10/1891302/10/18 1052 02/10/18 1625 Restraint Interventions Safety Promotion/Fall Prevention -- -- activity supervised;fall prevention program maintained Activity Activity Type -- -- activity adjusted per tolerance Activity Assistance Provided -- -- assistance, 2 people Assistive Device Utilized -- -- front-wheel walker;wheelchair Positioning Body Position -- -- independent with trapeze/overhead bed frame Daily Care Interventions Self-Care Promotion -- independence encouraged -- [place] Fall Risk History of Falling 25 -- -- Secondary Diagnosis 15 -- -- Ambulatory Aids 15 -- -- Intravenous Therapy/Heparin/Saline Lock 0 -- -- Gait/Transferring 10 -- -- Mental Status 15 -- -- Score 80 -- -- OTHER [place] Fall Risk High -- -- Goal: Infection Control Outcome: Ongoing (Interventions Implemented as Appropriate) 02/10/1891302/10/18 1625 Coping Strategies Supportive Measures verbalization of feelings encouraged;active listening utilized;self-care encouraged -- Safety Interventions Isolation Precautions -- standard precautions maintained Infection Prevention -- rest/sleep promoted Goal: Discharge Needs Assessment Outcome: Ongoing (Interventions Implemented as Appropriate) 02/10/18 1828 Discharge Needs Assessment Discharge Disposition still a patient Goal: Interdisciplinary Rounds/Family Conf Outcome: Ongoing (Interventions Implemented as Appropriate) 02/04/18 175 Interdisciplinary Rounds/Family Conf Participants nursing;patient;physician Problem: Skin Integrity Impairment, Risk/Actual (Adult) Goal: Identify Related Risk Factors and Signs and Symptoms Related risk factors and signs and symptoms are identified upon initiation of Human Response Clinical Practice Guideline (CPG) Outcome: Ongoing (Interventions Implemented as Appropriate) 09/12/17 1342 01/10/18 0503 Skin Integrity Impairment, Risk/Actual Skin Integrity Impairment, Risk/Actual: Related Risk Factors -- cognitive impairment;fluid/nutrition status Signs and Symptoms (Skin Integrity Impairment) edema -- Goal: Skin Integrity/Wound Healing Patient will demonstrate the desired outcomes by discharge/transition of care. Outcome: Ongoing (Interventions Implemented as Appropriate) 02/10/18 1828 Skin Integrity Impairment, Risk/Actual (Adult) Skin Integrity/Wound Healing making progress toward outcome Problem: Thought Process Alteration (Adult) Goal: Identify Related Risk Factors and Signs and Symptoms Related risk factors and signs and symptoms are identified upon initiation of Human Response Clinical Practice Guideline (CPG) Outcome: Ongoing (Interventions Implemented as Appropriate) 12/03/17 0528 02/10/18 1732 Thought Process Alteration Related Risk Factors (Thought Process Alteration) sleep deprivation;functional decline -- Signs and Symptoms (Thought Process Alteration) -- mood lability;irritability/restlessness/agitation Problem: Fluid Volume Excess (Adult,Obstetrics,Pediatric) Goal: Stable Weight Patient will demonstrate the desired outcomes by discharge/transition of care. Outcome: Ongoing (Interventions Implemented as Appropriate) 02/10/18 1828 Fluid Volume Excess (Adult,Obstetrics,Pediatric) Stable Weight making progress toward outcome Goal: Balanced Intake/Output Patient will demonstrate the desired outcomes by discharge/transition of care. Outcome: Ongoing (Interventions Implemented as Appropriate) 02/10/18 1828 Fluid Volume Excess (Adult,Obstetrics,Pediatric) Balanced Intake/Output making progress toward outcome * Plan of Care - Mary Jo Haro RN - 02/10/2018 7:52 AM EDT Problem: Patient Care Overview Goal: Plan of Care Review Outcome: Ongoing (Interventions Implemented as Appropriate) 02/05/18 0536 02/09/182044 Coping/Psychosocial Plan Of Care Reviewed With -- patient Plan of Care Review Progress no change -- OUTCOME EVALUATION NOTE: OUTCOME SUMMARY: Pt alert to self, agitated and times. VSS when pt allows staff to take them. See doc flows for system assessments. Pt continues to be intermittently incontinent even though staff offers the urinal frequently - use of urinal and verbalization of when pt needs to urinate encouraged w/ minimal effect.Sleeping in between care for most of night. Sitter present at bedside throughout shift. Will continue to monitor. PLAN MOVING FORWARD: Maintain safety, monitor IO, activity as tolerated INDIVIDUALIZED FALL PREVENTION INTERVENTIONS: Patient-specific fall risk factors per assessment: [current deficits]: Mobility at baseline Assistance [level of assistance required for transfers and ambulation]: 2 assist w/ walker Supervision [direct monitoring required during toileting and ADLs]: Hands on Surveillance [continuous indirect monitoring]: Hourly rounding, bed alarm on, room near nurses station Patient-specific fall prevention interventions for sensory deficits provided, if applicable: [X] Yes CPG GOAL OUTCOME EVALUATION: * Plan of Care - Pamela Mei RN - 02/09/2018 5:33 PM EDT OUTCOME EVALUATION NOTE: OUTCOME SUMMARY: PLAN MOVING FORWARD: PT/OT, mobilize, pain control, skin surveillance, limit setting INDIVIDUALIZED FALL PREVENTION INTERVENTIONS: Patient-specific fall risk factors per assessment: [current deficits]: Tubing, generalized weakness, surgery, behavior Assistance [level of assistance required for transfers and ambulation]: 2 assist w/ FWW and gait belt Supervision [direct monitoring required during toileting and ADLs]: Hands on w/ ADL's Surveillance [continuous indirect monitoring]: Purposeful Rounding, Bed Alarm and Sitter at Bedside Patient-specific fall prevention interventions for sensory deficits provided, if applicable: N/A CPG GOAL OUTCOME EVALUATION: Progress Problem: Patient Care Overview Goal: Plan of Care Review 02/05/18 0536 02/09/18 0744 Coping/Psychosocial Plan Of Care Reviewed With -- patient Plan of Care Review Progress no change -- Goal: Fall Prevention-Safe Patient Handling 02/09/18 0600 02/09/18 0744 Restraint Interventions Safety Promotion/Fall Prevention -- safety round/check completed;fall prevention program maintained;activity supervised;nonskid shoes/slippers when out of bed;toileting scheduled;elopement precautions initiated Activity Activity Type -- activity adjusted per tolerance;activity encouraged Activity Assistance Provided -- assistance, 2 people Assistive Device Utilized -- front-wheel walker Positioning Body Position -- independent Daily Care Interventions Self-Care Promotion independence encouraged -- [place] Fall Risk History of Falling -- 25 Secondary Diagnosis -- 15 Ambulatory Aids -- 15 Intravenous Therapy/Heparin/Saline Lock -- 0 Gait/Transferring -- 10 Mental Status -- 15 Score -- 80 OTHER [place] Fall Risk -- High Goal: Infection Control 02/09/18 0744 Coping Strategies Supportive Measures active listening utilized;verbalization of feelings encouraged Safety Interventions Isolation Precautions standard precautions maintained Infection Prevention single patient room provided Goal: Discharge Needs Assessment 01/05/18221501/30/18 17102/05/18 0534 Discharge Needs Assessment Concerns To Be Addressed -- -- basic needs concerns;care coordination/care conferences;cognitive/perceptual concerns;discharge planning concerns Readmission Within The Last 30 Days -- -- no previous admission in last 30 days Provider Choice List(s) Given yes -- -- Equipment Needed After Discharge wheelchair;walker, rolling -- -- Discharge Facility/Level Of Care Needs assisted living facility;nursing facility, skilled;nursing facility, basic -- -- Current Discharge Risk -- -- chronically ill;cognitively impaired;dependent with mobility/activities of daily living Discharge Disposition -- still a patient -- Current Health Outpatient/Agency/Support Group Needs assisted living facility (specify);nursing home (specify) -- -- Anticipated Changes Related to Illness -- -- none Living Environment Transportation Available agency transportation;van, wheelchair accessible;ambulance -- -- Activity/Self Care Review of Systems Equipment Currently Used at Home none -- -- Problem: Skin Integrity Impairment, Risk/Actual (Adult) Goal: Identify Related Risk Factors and Signs and Symptoms Related risk factors and signs and symptoms are identified upon initiation of Human Response Clinical Practice Guideline (CPG) 01/10/18 0503 Skin Integrity Impairment, Risk/Actual Skin Integrity Impairment, Risk/Actual: Related Risk Factors cognitive impairment;fluid/nutrition status Goal: Skin Integrity/Wound Healing Patient will demonstrate the desired outcomes by discharge/transition of care. 02/05/18 0534 Skin Integrity Impairment, Risk/Actual (Adult) Skin Integrity/Wound Healing making progress toward outcome Problem: Thought Process Alteration (Adult) Goal: Identify Related Risk Factors and Signs and Symptoms Related risk factors and signs and symptoms are identified upon initiation of Human Response Clinical Practice Guideline (CPG) 12/03/17 0528 Thought Process Alteration Related Risk Factors (Thought Process Alteration) sleep deprivation;functional decline Signs and Symptoms (Thought Process Alteration) irritability/restlessness/agitation;aggressive/combative behaviors;sleep/rest pattern disturbance;speech changes * Plan of Care - Mary Jo Haro RN - 02/09/2018 6:38 AM EDT Problem: Patient Care Overview Goal: Plan of Care Review Outcome: Ongoing (Interventions Implemented as Appropriate) 02/05/18 0536 02/08/182014 Coping/Psychosocial Plan Of Care Reviewed With -- patient Plan of Care Review Progress no change -- OUTCOME EVALUATION NOTE: OUTCOME SUMMARY: Pt oriented to self, VSS. See doc flows for system assessments. Pt intermittently agitated - emotional support provided w/ moderate effect. Sleeping intermittently between care. Pt continues to be incontinent despite scheduled toileting and frequent urinal offerings. Medicated x1 w/ PRN Ibuprofen. Will continue to monitor. PLAN MOVING FORWARD: Monitor IO, maintain safety INDIVIDUALIZED FALL PREVENTION INTERVENTIONS: Patient-specific fall risk factors per assessment: [current deficits]: Mobility at baseline Assistance [level of assistance required for transfers and ambulation]: 2 assist w/ walker Supervision [direct monitoring required during toileting and ADLs]: Hands on Surveillance [continuous indirect monitoring]: Call morris within reach, sitter present, room near nurses station Patient-specific fall prevention interventions for sensory deficits provided, if applicable: [X] Yes CPG GOAL OUTCOME EVALUATION: * Plan of Care - Pili Adkins RN - 02/08/2018 4:51 PM EDT Problem: Patient Care Overview Goal: Plan of Care Review Outcome: Ongoing (Interventions Implemented as Appropriate) 02/05/18 0536 02/08/18 1530 Coping/Psychosocial Plan Of Care Reviewed With -- patient Plan of Care Review Progress no change -- OUTCOME EVALUATION NOTE: OUTCOME SUMMARY: Alert, oriented to self and place. VSS, tachycardic. No cardiac or respiratory issues noted during shift. No pain reported. Medications given per orders, see MAR. 1:1 sitter remains. Incontinent of urine X 1 during shift. No further events. Will continue to monitor. PLAN MOVING FORWARD: Monitor vital signs, labs per orders, medications, monitor pain, vital signs INDIVIDUALIZED FALL PREVENTION INTERVENTIONS: Patient-specific fall risk factors per assessment: [current deficits]: Confusion, medications, developmental delay Assistance [level of assistance required for transfers and ambulation]: 2 assist with walker Supervision [direct monitoring required during toileting and ADLs]: Hands on, eyes on Surveillance [continuous indirect monitoring]: 1:1 sitter,, frequent purposeful rounding, single ptroom near nursing station Patient-specific fall prevention interventions for sensory deficits provided, if applicable: Yes CPG GOAL OUTCOME EVALUATION: * Plan of Care - Mariposa Harkins RN - 02/08/2018 2:48 AM EDT Problem: Patient Care Overview Goal: Plan of Care Review Outcome: Ongoing (Interventions Implemented as Appropriate) ?? 02/05/18 0536 02/07/18 1400 Coping/Psychosocial Plan Of Care Reviewed With -- patient Plan of Care Review Progress no change -- ?? OUTCOME EVALUATION NOTE: ?? OUTCOME SUMMARY: Patient lying in bed, yelling again, but when asked if he is in pain, he denies it. Heart rate elevated at times, r/t agitation, otherwise no other issues noted. Much more calmer this evening than the night before, but is having periods of incontinence that appear to be behavorial, in addition to putting his feet into the slots in the footboard, and then bending his feet, or lying in bed and pulling and spreading his toes until he is in pain. Vss, no c/o pain Continue to monitor for changes. ? PLAN MOVING FORWARD: Rehab here, encourage ambulation, monitor pain. ?? INDIVIDUALIZED FALL PREVENTION INTERVENTIONS: ?? Patient-specific fall risk factors per assessment: [current deficits]: Blind, unfamiliar surroundings, medical equipment ?? Assistance [level of assistance required for transfers and ambulation]: 2 assist with walker ?? Supervision [direct monitoring required during toileting and ADLs]: Hands on, eyes on ?? Surveillance [continuous indirect monitoring]: Hourly rounding, 1:1 sitter ?? Patient-specific fall prevention interventions for sensory deficits provided, if applicable: Yes ? CPG GOAL OUTCOME EVALUATION: ?? * Plan of Care - Pili Adkins RN - 02/07/2018 3:22 PM EDT Problem: Patient Care Overview Goal: Plan of Care Review Outcome: Ongoing (Interventions Implemented as Appropriate) 02/05/18 0536 02/07/18 1400 Coping/Psychosocial Plan Of Care Reviewed With -- patient Plan of Care Review Progress no change -- OUTCOME EVALUATION NOTE: OUTCOME SUMMARY: Alert to self and place, frequent agitation during shift, Seroquel given X 2, see MAR. Vital signs taken per orders, fired sepsis at 0900 this morning for heart rate of 134 and respiratory rate of 24, MD aware, Seroquel given, see MAR, improvement noted during shift. Medications given per orders, see MAR. Pain noted in left hip and around left knee, Ibuprofen and Tylenol given with improvement noted, see MAR for specifics. Bladder scan completed 180, pt urinated 150 with 30 post void residual, MD aware. 1:1 sitter continues. No further events. Will continue to monitor. PLAN MOVING FORWARD: Monitor agitation, medications per orders, pain management INDIVIDUALIZED FALL PREVENTION INTERVENTIONS: Patient-specific fall risk factors per assessment: [current deficits]: Medications, encourage movement and ambulation, pain, ambulation Assistance [level of assistance required for transfers and ambulation]: 2 assist with walker Supervision [direct monitoring required during toileting and ADLs]: Hands on, eyes on Surveillance [continuous indirect monitoring]: Frequent purposeful rounding, single patient room near nursing station, 1:1 sitter Patient-specific fall prevention interventions for sensory deficits provided, if applicable: Yes CPG GOAL OUTCOME EVALUATION: * Plan of Care - Pili Adkins RN - 02/06/2018 6:46 PM EDT Problem: Patient Care Overview Goal: Plan of Care Review Outcome: Ongoing (Interventions Implemented as Appropriate) 02/05/18 0536 02/06/18 1800 Coping/Psychosocial Plan Of Care Reviewed With -- patient Plan of Care Review Progress no change -- OUTCOME EVALUATION NOTE: OUTCOME SUMMARY: Alert, oriented to self and place. No cardiac or respiratory issues. Pt denies pain. Medications given per orders, see MAR. 1:1 sitter at all times. Pt agitated this morning, prn Seroquel given per MD orders X 1 with moderate effect. No further events. Will continue to monitor. PLAN MOVING FORWARD: Medications, vital signs, monitor pain, 1:1 sitter for safety INDIVIDUALIZED FALL PREVENTION INTERVENTIONS: Patient-specific fall risk factors per assessment: [current deficits]: Confusion, generalized weakness, medications, agitation Assistance [level of assistance required for transfers and ambulation]: 2 assist Supervision [direct monitoring required during toileting and ADLs]: Hands on, eyes on Surveillance [continuous indirect monitoring]: Frequent purposeful rounding, 1:1 sitter, single pt room near nursing station Patient-specific fall prevention interventions for sensory deficits provided, if applicable: Yes CPG GOAL OUTCOME EVALUATION: * Plan of Care - Mariposa Harkins RN - 02/06/2018 3:54 AM EDT Problem: Patient Care Overview Goal: Plan of Care Review Outcome: Ongoing (Interventions Implemented as Appropriate) ?? 02/05/18 0536 02/05/18 1000 Coping/Psychosocial Plan Of Care Reviewed With -- patient Plan of Care Review Progress no change -- ?? OUTCOME EVALUATION NOTE: ?? OUTCOME SUMMARY: Calling out for several hours at the beginning of the shift, agitated and restless. Miguel Angel finally settled down after MN, only waking occasionally with short periods of yelling. Vital signs stable, noother issues overnight. Continue with sitter and provide encouragement and emotional support.? PLAN MOVING FORWARD: Continue with 1:1 sitter, and rehab until medically ready for discharge back to nursing home.? INDIVIDUALIZED FALL PREVENTION INTERVENTIONS: ?? Patient-specific fall risk factors per assessment: [current deficits]: Cognitive impairment, generalized weakness ?? Assistance [level of assistance required for transfers and ambulation]: 3 assist and chair ?? Supervision [direct monitoring required during toileting and ADLs]: Assist with ADLs ?? Surveillance [continuous indirect monitoring]: Hourly rounding, 1:1 sitter at all times ?? Patient-specific fall prevention interventions for sensory deficits provided, if applicable: [X] No ? CPG GOAL OUTCOME EVALUATION: ?? * Plan of Care - Chela Hernandez RN - 02/05/2018 4:22 PM EDT Problem: Patient Care Overview Goal: Plan of Care Review Outcome: Ongoing (Interventions Implemented as Appropriate) 02/05/18 0536 02/05/18 1000 Coping/Psychosocial Plan Of Care Reviewed With -- patient Plan of Care Review Progress no change -- OUTCOME EVALUATION NOTE: OUTCOME SUMMARY: Mr. Mason slept for most of the day, he refused to walk despite staff attempts. When he was awake he was irritable at times but redirectable. Ate all of his meals. Sitter at bedside. Vitals WDL, no events. PLAN MOVING FORWARD: Continue to encourage INDIVIDUALIZED FALL PREVENTION INTERVENTIONS: Patient-specific fall risk factors per assessment: [current deficits]: Cognitive impairment Assistance [level of assistance required for transfers and ambulation]: 3 assist and chair Supervision [direct monitoring required during toileting and ADLs]: Assist with ADLs Surveillance [continuous indirect monitoring]: Hourly rounding, sitter Patient-specific fall prevention interventions for sensory deficits provided, if applicable: [X] No CPG GOAL OUTCOME EVALUATION: Goal: Fall Prevention-Safe Patient Handling Outcome: Ongoing (Interventions Implemented as Appropriate) 02/04/18 1652 02/05/18 1000 02/05/18 1430 Restraint Interventions Safety Promotion/Fall Prevention -- -- activity supervised Activity Activity Type -- -- activity adjusted per tolerance Activity Assistance Provided -- -- independent Assistive Device Utilized none -- -- Positioning Body Position -- -- independent Daily Care Interventions Self-Care Promotion -- -- independence encouraged [place] Fall Risk History of Falling -- 25 -- Secondary Diagnosis -- 15 -- Ambulatory Aids -- 15 -- Intravenous Therapy/Heparin/Saline Lock -- 0 -- Gait/Transferring -- 10 -- Mental Status -- 15 -- Score -- 80 -- OTHER [place] Fall Risk -- High -- Goal: Infection Control Outcome: Ongoing (Interventions Implemented as Appropriate) 02/05/18 1000 02/05/18 1430 Coping Strategies Supportive Measures active listening utilized;positive reinforcement provided;verbalization of feelings encouraged -- Safety Interventions Isolation Precautions -- standard precautions maintained Infection Prevention -- environmental surveillance performed;personal protective equipment utilized;rest/sleep promoted;single patient room provided Goal: Discharge Needs Assessment Outcome: Ongoing (Interventions Implemented as Appropriate) 01/05/18 2216 01/30/18 1712 02/05/18 0534 Discharge Needs Assessment Concerns To Be Addressed -- -- basic needs concerns;care coordination/care conferences;cognitive/perceptual concerns;discharge planning concerns Readmission Within The Last 30 Days -- -- no previous admission in last 30 days Provider Choice List(s) Given yes -- -- Equipment Needed After Discharge wheelchair;walker, rolling -- -- Discharge Facility/Level Of Care Needs assisted living facility;nursing facility, skilled;nursing facility, basic -- -- Current Discharge Risk -- -- chronically ill;cognitively impaired;dependent with mobility/activities of daily living Discharge Disposition -- still a patient -- Current Health Outpatient/Agency/Support Group Needs assisted living facility (specify);nursing home (specify) -- -- Anticipated Changes Related to Illness -- -- none Living Environment Transportation Available agency transportation;van, wheelchair accessible;ambulance -- -- Activity/Self Care Review of Systems Equipment Currently Used at Home none -- -- Goal: Interdisciplinary Rounds/Family Conf Outcome: Ongoing (Interventions Implemented as Appropriate) 02/04/18 1756 Interdisciplinary Rounds/Family Conf Participants nursing;patient;physician * Plan of Care - Felecia Moran RN - 02/05/2018 5:40 AM EDT Problem: Patient Care Overview Goal: Plan of Care Review Outcome: Ongoing (Interventions Implemented as Appropriate) 02/05/18 0536 Coping/Psychosocial Plan Of Care Reviewed With patient Plan of Care Review Progress no change OUTCOME EVALUATION NOTE: OUTCOME SUMMARY: Patient resting in bed throughout shift, restless until around 0100. Patient at first attempt of receiving medication did not want them, but then accepted later on. Voiding frequently. Yelling out and when asked what was wrong stated I'm bored. Activity/distraction provided. No other changes thisshift, sitter remains at bedside. PLAN MOVING FORWARD: Promote activity and normal sleep/wake cycle, discharge planning INDIVIDUALIZED FALL PREVENTION INTERVENTIONS: Patient-specific fall risk factors per assessment: [current deficits]: Pt scores high risk to fall r/t prior fracture, unsteady gait, impulsiveness Assistance [level of assistance required for transfers and ambulation]: 2 assist with FWW Supervision [direct monitoring required during toileting and ADLs]: Hands on Surveillance [continuous indirect monitoring]: Bed alarm, 1:1 sitter at bedside Patient-specific fall prevention interventions for sensory deficits provided, if applicable: [X] Yes, patient with blindness. Verbal cues provided. CPG GOAL OUTCOME EVALUATION: * Plan of Care - Vandana Jean Baptiste RN - 02/04/2018 6:05 PM EDT Problem: Patient Care Overview Goal: Plan of Care Review Outcome: Ongoing (Interventions Implemented as Appropriate) 02/03/18 1224 02/04/18 0825 Coping/Psychosocial Plan Of Care Reviewed With -- patient Plan of Care Review Progress progress toward functional goals is gradual -- OUTCOME EVALUATION NOTE: OUTCOME SUMMARY: Pt is alert to self and place, VSS. Pt was able to walk to the end of the nurses station today with2 assist. He then sat in the wheelchair and pushed himself around the unit. This afternoon the pt had an episode of urinary incontinence. He became very agitated when we tried to change his clothes. Once in bed, pt was able to calm down. No acute changes PLAN MOVING FORWARD: Continue to monitor and assess, Promote ambulation INDIVIDUALIZED FALL PREVENTION INTERVENTIONS: Patient-specific fall risk factors per assessment: [current deficits]: High fall risk Assistance [level of assistance required for transfers and ambulation]: 2 assist with walker Supervision [direct monitoring required during toileting and ADLs]: Hands on Surveillance [continuous indirect monitoring]: Hourly rounding, call morris within reach, sitter at bedside, non skid socks on Patient-specific fall prevention interventions for sensory deficits provided, if applicable: [X] N/A CPG GOAL OUTCOME EVALUATION: * Plan of Care - Samantha Mix RN - 02/04/2018 3:20 AM EDT Problem: Patient Care Overview Goal: Plan of Care Review Outcome: Ongoing (Interventions Implemented as Appropriate) OUTCOME EVALUATION NOTE: OUTCOME SUMMARY: Pt alert, oriented to self and place. Pt cooperative at the beginning of the shift, however became increasingly agitated as the night progressed. Minimal sleep overnight, PRN seroquel given for agitation. No acute changes overnight, will continue to Monitor. PLAN MOVING FORWARD: ambulation, placement INDIVIDUALIZED FALL PREVENTION INTERVENTIONS: Patient-specific fall risk factors per assessment: [current deficits]: Assistance [level of assistance required for transfers and ambulation]: Turns self indep, 2x assistwith ambulation Supervision [direct monitoring required during toileting and ADLs]: 1:1 sitter Surveillance [continuous indirect monitoring]: Patient-specific fall prevention interventions for sensory deficits provided, if applicable: [X] Yes CPG GOAL OUTCOME EVALUATION: Goal: Individualization & Mutuality Outcome: Ongoing (Interventions Implemented as Appropriate) 10/17/17 1745 11/18/17 0546 01/25/18 0243 Individualization Patient Specific Preferences -- -- Enjoys icecream, applesauce or pudding for medications. Patient Specific Goals -- -- maintain safety, ambulate three times daily Patient Specific Interventions -- -- encourage ambulation, restrict fluids Mutuality/Individual Preferences What Anxieties, Fears or Concerns Do You Have About Your Health or Care? ISHAAN -- -- What Questions Do You Have About Your Health or Care? ISHAAN -- -- What Information Would Help Us Give You More Personalized Care? -- Sister, Bettina, is his guardian -- Goal: Fall Prevention-Safe Patient Handling Outcome: Ongoing (Interventions Implemented as Appropriate) 02/01/18 1000 02/03/18 0300 02/03/18 2030 Restraint Interventions Safety Promotion/Fall Prevention -- -- activity supervised Activity Activity Type -- -- activity adjusted per tolerance Activity Assistance Provided -- -- assistance, 2 people Assistive Device Utilized -- front-wheel walker -- Positioning Body Position -- -- independent Daily Care Interventions Self-Care Promotion independence encouraged -- -- [place] Fall Risk History of Falling -- -- 25 Secondary Diagnosis -- -- 15 Ambulatory Aids -- -- 15 Intravenous Therapy/Heparin/Saline Lock -- -- 0 Gait/Transferring -- -- 10 Mental Status -- -- 15 Score -- -- 80 OTHER [place] Fall Risk -- -- High Goal: Infection Control Outcome: Ongoing (Interventions Implemented as Appropriate) 02/03/18 1200 02/03/18 2030 Coping Strategies Supportive Measures active listening utilized;verbalization of feelings encouraged -- Safety Interventions Isolation Precautions -- standard precautions maintained Infection Prevention environmental surveillance performed;rest/sleep promoted;single patient room provided -- Goal: Discharge Needs Assessment Outcome: Ongoing (Interventions Implemented as Appropriate) 01/05/18 2216 01/30/18 1712 Discharge Needs Assessment Concerns To Be Addressed basic needs concerns;discharge planning concerns;cognitive/perceptual concerns;care coordination/care conferences -- Readmission Within The Last 30 Days no previous admission in last 30 days -- Provider Choice List(s) Given yes -- Equipment Needed After Discharge wheelchair;walker, rolling -- Discharge Facility/Level Of Care Needs assisted living facility;nursing facility, skilled;nursing facility, basic -- Current Discharge Risk chronically ill;dependent with mobility/activities of daily living;cognitively impaired;physical impairment -- Discharge Disposition -- still a patient Current Health Outpatient/Agency/Support Group Needs assisted living facility (specify);nursing home (specify) -- Anticipated Changes Related to Illness none -- Living Environment Transportation Available agency transportation;van, wheelchair accessible;ambulance -- Activity/Self Care Review of Systems Equipment Currently Used at Home none -- * Plan of Care - Isabell Laureano RN - 02/03/2018 12:26 PM EDT Problem: Patient Care Overview Goal: Plan of Care Review Outcome: Ongoing (Interventions Implemented as Appropriate) 02/03/18 1224 Coping/Psychosocial Plan Of Care Reviewed With patient Plan of Care Review Progress progress toward functional goals is gradual OUTCOME EVALUATION NOTE: OUTCOME SUMMARY: Pt sleeping until late morning. Meds administered. VSS. Pt was taken outside in a wheelchair per sitter and rolled himself in the hallway. PRN Miralax administered with good effect, large BM. Incontinence care was provided as needed. PRN seroquel administered x1. Continue to monitor, safety maintained. PLAN MOVING FORWARD: Encourage ambulation, involvement with self care and ADLs. INDIVIDUALIZED FALL PREVENTION INTERVENTIONS: Patient-specific fall risk factors per assessment: [current deficits]: Severe vision impairment, LLE weakness. Assistance [level of assistance required for transfers and ambulation]: 1-2 people assist, walker, wheelchair. Supervision [direct monitoring required during toileting and ADLs]: 1-2 people assist. Surveillance [continuous indirect monitoring]: Purposeful rounding. Patient-specific fall prevention interventions for sensory deficits provided, if applicable: [X] N/A [facility] GOAL OUTCOME EVALUATION: Goal: Fall Prevention-Safe Patient Handling Outcome: Ongoing (Interventions Implemented as Appropriate) 02/01/18 1000 02/03/18 0300 02/03/18 1200 Restraint Interventions Safety Promotion/Fall Prevention -- -- activity supervised;fall prevention program maintained;muscle strengthening facilitated;nonskid shoes/slippers when out of bed;safety round/check completed Activity Activity Type -- -- activity adjusted per tolerance Activity Assistance Provided -- assistance, 2 people -- Assistive Device Utilized -- front-wheel walker -- Positioning Body Position -- -- independent;independent with trapeze/overhead bed frame Daily Care Interventions Self-Care Promotion independence encouraged -- -- [place] Fall Risk History of Falling -- -- 25 Secondary Diagnosis -- -- 15 Ambulatory Aids -- -- 15 Intravenous Therapy/Heparin/Saline Lock -- -- 0 Gait/Transferring -- -- 10 Mental Status -- -- 15 Score -- -- 80 OTHER [place] Fall Risk -- -- High Goal: Infection Control Outcome: Ongoing (Interventions Implemented as Appropriate) 02/03/18 1200 Coping Strategies Supportive Measures active listening utilized;verbalization of feelings encouraged Safety Interventions Isolation Precautions standard precautions maintained Infection Prevention environmental surveillance performed;rest/sleep promoted;single patient room provided * Plan of Care - Samantha Mix RN - 02/03/2018 4:01 AM EDT Problem: Patient Care Overview Goal: Plan of Care Review Outcome: Ongoing (Interventions Implemented as Appropriate) 02/02/18 1140 02/02/182019 Coping/Psychosocial Plan Of Care Reviewed With -- patient Plan of Care Review Progress progress toward functional goals is gradual -- OUTCOME EVALUATION NOTE: OUTCOME SUMMARY: Pt alert to self and place, denying pain. Pt tolerated night time medication. PT awake for majority of night, falling asleep at approximately 0300, however calm and cooperative. No acute changes overnight, will continue to monitor PLAN MOVING FORWARD: continue to ambulate INDIVIDUALIZED FALL PREVENTION INTERVENTIONS: Patient-specific fall risk factors per assessment: [current deficits]: Assistance [level of assistance required for transfers and ambulation]: 1xassist Supervision [direct monitoring required during toileting and ADLs]: Hourly rounding Surveillance [continuous indirect monitoring]: 1:1 sitter maintained Patient-specific fall prevention interventions for sensory deficits provided, if applicable: [X] Yes [facility] GOAL OUTCOME EVALUATION: Goal: Individualization & Mutuality Outcome: Ongoing (Interventions Implemented as Appropriate) 10/17/17 1745 11/18/17 0546 01/25/18 0243 Individualization Patient Specific Preferences -- -- Enjoys icecream, applesauce or pudding for medications. Patient Specific Goals -- -- maintain safety, ambulate three times daily Patient Specific Interventions -- -- encourage ambulation, restrict fluids Mutuality/Individual Preferences What Anxieties, Fears or Concerns Do You Have About Your Health or Care? ISHAAN -- -- What Questions Do You Have About Your Health or Care? ISHAAN -- -- What Information Would Help Us Give You More Personalized Care? -- SisterBettina, is his guardian -- Goal: Fall Prevention-Safe Patient Handling Outcome: Ongoing (Interventions Implemented as Appropriate) 02/01/18 1000 02/02/18201902/03/18 0300 Restraint Interventions Safety Promotion/Fall Prevention -- -- fall prevention program maintained;nonskid shoes/slippers when out of bed;safety round/check completed Activity Activity Type -- -- activity adjusted per tolerance Activity Assistance Provided -- -- assistance, 2 people Assistive Device Utilized -- -- front-wheel walker Positioning Body Position -- -- independent with trapeze/overhead bed frame Daily Care Interventions Self-Care Promotion independence encouraged -- -- [place] Fall Risk History of Falling -- 25 -- Secondary Diagnosis -- 15 -- Ambulatory Aids -- 15 -- Intravenous Therapy/Heparin/Saline Lock -- 0 -- Gait/Transferring -- 10 -- Mental Status -- 15 -- Score -- 80 -- OTHER [place] Fall Risk -- High -- Goal: Infection Control Outcome: Ongoing (Interventions Implemented as Appropriate) 02/02/18 1100 02/03/18 0300 Coping Strategies Supportive Measures active listening utilized;other (see comments) -- Safety Interventions Isolation Precautions -- standard precautions maintained Infection Prevention -- rest/sleep promoted Goal: Discharge Needs Assessment Outcome: Ongoing (Interventions Implemented as Appropriate) 01/05/18 2216 01/30/18 1712 Discharge Needs Assessment Concerns To Be Addressed basic needs concerns;discharge planning concerns;cognitive/perceptual concerns;care coordination/care conferences -- Readmission Within The Last 30 Days no previous admission in last 30 days -- Provider Choice List(s) Given yes -- Equipment Needed After Discharge wheelchair;walker, rolling -- Discharge Facility/Level Of Care Needs assisted living facility;nursing facility, skilled;nursing facility, basic -- Current Discharge Risk chronically ill;dependent with mobility/activities of daily living;cognitively impaired;physical impairment -- Discharge Disposition -- still a patient Current Health Outpatient/Agency/Support Group Needs assisted living facility (specify);nursing home (specify) -- Anticipated Changes Related to Illness none -- Living Environment Transportation Available agency transportation;van, wheelchair accessible;ambulance -- Activity/Self Care Review of Systems Equipment Currently Used at Home none -- * Plan of Care - Isabell Laureano RN - 02/02/2018 11:42 AM EDT Problem: Patient Care Overview Goal: Plan of Care Review Outcome: Ongoing (Interventions Implemented as Appropriate) 02/02/18 1140 Coping/Psychosocial Plan Of Care Reviewed With patient Plan of Care Review Progress progress toward functional goals is gradual OUTCOME EVALUATION NOTE: OUTCOME SUMMARY: Pt slept in the morning between care. Meds administered. Ambulated to the bathroom. Was taken outside by the sitter. Pt became agitated in the evening, PRN seroquel administered x1. Charge nurse was notified regarding pt agitation. Security was needed in the room. At the moment pt is in bed, 1:1 observation resumed. Safety maintained. PLAN MOVING FORWARD: Encourage ambulation, involvement with ADLs. INDIVIDUALIZED FALL PREVENTION INTERVENTIONS: Patient-specific fall risk factors per assessment: [current deficits]: Significantly impaired vision. Assistance [level of assistance required for transfers and ambulation]: 2-3 people assist. Supervision [direct monitoring required during toileting and ADLs]: 2 people assist. Surveillance [continuous indirect monitoring]: Purposeful rounding. Patient-specific fall prevention interventions for sensory deficits provided, if applicable: [X] N/A [facility] GOAL OUTCOME EVALUATION: Goal: Fall Prevention-Safe Patient Handling Outcome: Ongoing (Interventions Implemented as Appropriate) 02/01/18 1000 02/02/18 1100 Restraint Interventions Safety Promotion/Fall Prevention -- activity supervised;fall prevention program maintained;muscle strengthening facilitated;nonskid shoes/slippers when out of bed;safety round/check completed Activity Activity Type -- activity adjusted per tolerance Activity Assistance Provided -- assistance, 3 or more people Assistive Device Utilized -- front-wheel walker Positioning Body Position -- independent with trapeze/overhead bed frame Daily Care Interventions Self-Care Promotion independence encouraged -- [place] Fall Risk History of Falling -- 25 Secondary Diagnosis -- 15 Ambulatory Aids -- 15 Intravenous Therapy/Heparin/Saline Lock -- 0 Gait/Transferring -- 20 Mental Status -- 15 Score -- 90 OTHER [place] Fall Risk -- High Goal: Infection Control Outcome: Ongoing (Interventions Implemented as Appropriate) 02/02/18 1100 Coping Strategies Supportive Measures active listening utilized;other (see comments) Safety Interventions Isolation Precautions standard precautions maintained Infection Prevention environmental surveillance performed;rest/sleep promoted;single patient room provided * Plan of Care - Samantha Mix RN - 02/02/2018 6:11 AM EDT Problem: Patient Care Overview Goal: Plan of Care Review Outcome: Ongoing (Interventions Implemented as Appropriate) OUTCOME EVALUATION NOTE: OUTCOME SUMMARY: Pt had a pleasant evening. Pt calm and cooperative with care, tolerating night time medications. Pt sleeping overnight, no acute changes. Sitter remains at bedside. PLAN MOVING FORWARD: Increased ambulation INDIVIDUALIZED FALL PREVENTION INTERVENTIONS: Patient-specific fall risk factors per assessment: [current deficits]: Assistance [level of assistance required for transfers and ambulation]: 2x assist Supervision [direct monitoring required during toileting and ADLs]: Hourly rounding per protocol Surveillance [continuous indirect monitoring]: 1 :1 sitter Patient-specific fall prevention interventions for sensory deficits provided, if applicable: [X] Yes [facility] GOAL OUTCOME EVALUATION: Goal: Individualization & Mutuality Outcome: Ongoing (Interventions Implemented as Appropriate) 10/17/17 1745 11/18/17 0546 01/25/18 0243 Individualization Patient Specific Preferences -- -- Enjoys icecream, applesauce or pudding for medications. Patient Specific Goals -- -- maintain safety, ambulate three times daily Patient Specific Interventions -- -- encourage ambulation, restrict fluids Mutuality/Individual Preferences What Anxieties, Fears or Concerns Do You Have About Your Health or Care? ISHAAN -- -- What Questions Do You Have About Your Health or Care? ISHAAN -- -- What Information Would Help Us Give You More Personalized Care? -- SisterBettina, is his guardian -- Goal: Fall Prevention-Safe Patient Handling Outcome: Ongoing (Interventions Implemented as Appropriate) 02/01/18 0800 02/01/18 1000 02/01/18 2100 Restraint Interventions Safety Promotion/Fall Prevention -- -- -- Activity Activity Type -- -- activity adjusted per tolerance Activity Assistance Provided assistance, 2 people -- -- Assistive Device Utilized front-wheel walker -- -- Positioning Body Position -- -- -- Daily Care Interventions Self-Care Promotion -- independence encouraged -- [place] Fall Risk History of Falling -- -- 25 Secondary Diagnosis -- -- 15 Ambulatory Aids -- -- 15 Intravenous Therapy/Heparin/Saline Lock -- -- 0 Gait/Transferring -- -- 20 Mental Status -- -- 15 Score -- -- 90 OTHER [place] Fall Risk -- -- High 02/02/18 0000 Restraint Interventions Safety Promotion/Fall Prevention fall prevention program maintained;nonskid shoes/slippers when outof bed;safety round/check completed Activity Activity Type -- Activity Assistance Provided -- Assistive Device Utilized -- Positioning Body Position independent with trapeze/overhead bed frame Daily Care Interventions Self-Care Promotion -- [place] Fall Risk History of Falling -- Secondary Diagnosis -- Ambulatory Aids -- Intravenous Therapy/Heparin/Saline Lock -- Gait/Transferring -- Mental Status -- Score -- OTHER [place] Fall Risk -- Goal: Infection Control Outcome: Ongoing (Interventions Implemented as Appropriate) 02/01/18 1239 02/02/18 0000 Coping Strategies Supportive Measures active listening utilized;positive reinforcement provided;verbalization of feelings encouraged -- Safety Interventions Isolation Precautions -- standard precautions maintained Infection Prevention -- rest/sleep promoted Goal: Discharge Needs Assessment Outcome: Ongoing (Interventions Implemented as Appropriate) 01/05/18 2216 01/30/18 1712 Discharge Needs Assessment Concerns To Be Addressed basic needs concerns;discharge planning concerns;cognitive/perceptual concerns;care coordination/care conferences -- Readmission Within The Last 30 Days no previous admission in last 30 days -- Provider Choice List(s) Given yes -- Equipment Needed After Discharge wheelchair;walker, rolling -- Discharge Facility/Level Of Care Needs assisted living facility;nursing facility, skilled;nursing facility, basic -- Current Discharge Risk chronically ill;dependent with mobility/activities of daily living;cognitively impaired;physical impairment -- Discharge Disposition -- still a patient Current Health Outpatient/Agency/Support Group Needs assisted living facility (specify);nursing home (specify) -- Anticipated Changes Related to Illness none -- Living Environment Transportation Available agency transportation;van, wheelchair accessible;ambulance -- Activity/Self Care Review of Systems Equipment Currently Used at Home none -- * Plan of Care - Isabell Laureano RN - 02/01/2018 1:38 PM EDT Problem: Patient Care Overview Goal: Plan of Care Review Outcome: Ongoing (Interventions Implemented as Appropriate) 02/01/18 1332 Coping/Psychosocial Plan Of Care Reviewed With patient Plan of Care Review Progress progress towards functional goals is fair OUTCOME EVALUATION NOTE: OUTCOME SUMMARY: Pt alert, cooperative with medication regimen. Agitated at times, redirected and distractive activities promoted. Abdomen distended, firm, taut, no BM in the morning. PRN Miralax administered, one large BM in the afternoon. Continues with 1:1 observation. Pt became agitated in the late evening, PRNseroquel administered. Continue to monitor, safety maintained. PLAN MOVING FORWARD: Provide diversional activities, encourage involvement with ADLs. Promote relaxation techniques. INDIVIDUALIZED FALL PREVENTION INTERVENTIONS: Patient-specific fall risk factors per assessment: [current deficits]: Impaired vision, L sided weakness. Assistance [level of assistance required for transfers and ambulation]: 2 or more people assist. Supervision [direct monitoring required during toileting and ADLs]: 1-2 people assist. Surveillance [continuous indirect monitoring]: Purposeful rounding. Patient-specific fall prevention interventions for sensory deficits provided, if applicable: [X] N/A [facility] GOAL OUTCOME EVALUATION: Goal: Fall Prevention-Safe Patient Handling Outcome: Ongoing (Interventions Implemented as Appropriate) 02/01/18 0800 02/01/18 1000 02/01/18 1239 Restraint Interventions Safety Promotion/Fall Prevention -- -- activity supervised;fall prevention program maintained;muscle strengthening facilitated;safety round/check completed;nonskid shoes/slippers when out of bed Activity Activity Type -- -- activity adjusted per tolerance Activity Assistance Provided assistance, 2 people -- -- Assistive Device Utilized front-wheel walker -- -- Positioning Body Position -- -- independent Daily Care Interventions Self-Care Promotion -- independence encouraged -- [place] Fall Risk History of Falling -- -- 25 Secondary Diagnosis -- -- 15 Ambulatory Aids -- -- 15 Intravenous Therapy/Heparin/Saline Lock -- -- 0 Gait/Transferring -- -- 20 Mental Status -- -- 15 Score -- -- 90 OTHER [place] Fall Risk -- -- High * Plan of Care - Adia Feng RN - 02/01/2018 3:37 AM EDT Problem: Patient Care Overview Goal: Plan of Care Review Outcome: Ongoing (Interventions Implemented as Appropriate) 01/31/18 1747 01/31/182044 Coping/Psychosocial Plan Of Care Reviewed With -- patient Plan of Care Review Progress progress towards functional goals is fair -- OUTCOME EVALUATION NOTE: OUTCOME SUMMARY: Alert and oriented to person and place, VSS. Pt denies pain, however has facial grimacing, crying/screaming out while holding L knee. Ice applied to L knee and scheduled tylenol given. Agitated and restless at beginning of manager shift, but able to calm down and rest for a few hours before morning. 1:1 observation, sitter at bedside continued. Medications administered per MAR. Pt cooperative with RN, using short simple instructions and constant encouragement. No acute events overnight, will continue to monitor. PLAN MOVING FORWARD: Continue to monitor vital signs, pain level, fluid restriction, fall prevention, skin integrity, incontinent episodes. Use positive reinforcement and constant encouraging, along with providing a safeenvironment. INDIVIDUALIZED FALL PREVENTION INTERVENTIONS: Patient-specific fall risk factors per assessment: [current deficits]: Generalized weakness, uncooperative at times, hx of falls and TBI. Assistance [level of assistance required for transfers and ambulation]: 1-2 assist with walker. Supervision [direct monitoring required during toileting and ADLs]: Eyes on, hands on. Surveillance [continuous indirect monitoring]: Vital signs, pain level, I&Os, incontinent episodes, skin integrity. Patient-specific fall prevention interventions for sensory deficits provided, if applicable: [X] Yes [facility] GOAL OUTCOME EVALUATION: Goal: Individualization & Mutuality Outcome: Ongoing (Interventions Implemented as Appropriate) 10/17/17 1745 11/18/17 0546 01/25/18 0243 Individualization Patient Specific Preferences -- -- Enjoys icecream, applesauce or pudding for medications. Patient Specific Goals -- -- maintain safety, ambulate three times daily Patient Specific Interventions -- -- encourage ambulation, restrict fluids Mutuality/Individual Preferences What Anxieties, Fears or Concerns Do You Have About Your Health or Care? SIHAAN -- -- What Questions Do You Have About Your Health or Care? ISHAAN -- -- What Information Would Help Us Give You More Personalized Care? -- Sister, Bettina, is his guardian -- Goal: Fall Prevention-Safe Patient Handling Outcome: Ongoing (Interventions Implemented as Appropriate) 01/30/18205101/31/18204402/01/18 0024 Restraint Interventions Safety Promotion/Fall Prevention -- -- activity supervised;fall prevention program maintained;nonskid shoes/slippers when out of bed;safety round/check completed Activity Activity Type -- activity adjusted per tolerance -- Activity Assistance Provided -- assistance, 1 person -- Assistive Device Utilized front-wheel walker -- -- Positioning Body Position -- independent -- Daily Care Interventions Self-Care Promotion -- independence encouraged -- [place] Fall Risk History of Falling -- 25 -- Secondary Diagnosis -- 15 -- Ambulatory Aids -- 15 -- Intravenous Therapy/Heparin/Saline Lock -- 0 -- Gait/Transferring -- 20 -- Mental Status -- 15 -- Score -- 90 -- OTHER [place] Fall Risk -- High -- Goal: Infection Control Outcome: Ongoing (Interventions Implemented as Appropriate) 01/31/18204402/01/18 0024 02/01/18 0200 Coping Strategies Supportive Measures positive reinforcement provided;verbalization of feelings encouraged;active listening utilized -- -- Safety Interventions Isolation Precautions -- -- standard precautions maintained Infection Prevention -- environmental surveillance performed;barrier precautions utilized;personal protective equipment utilized;rest/sleep promoted;single patient room provided -- Goal: Discharge Needs Assessment Outcome: Ongoing (Interventions Implemented as Appropriate) 01/05/18221501/30/18 171 Discharge Needs Assessment Concerns To Be Addressed basic needs concerns;discharge planning concerns;cognitive/perceptual concerns;care coordination/care conferences -- Readmission Within The Last 30 Days no previous admission in last 30 days -- Provider Choice List(s) Given yes -- Equipment Needed After Discharge wheelchair;walker, rolling -- Discharge Facility/Level Of Care Needs assisted living facility;nursing facility, skilled;nursing facility, basic -- Current Discharge Risk chronically ill;dependent with mobility/activities of daily living;cognitively impaired;physical impairment -- Discharge Disposition -- still a patient Current Health Outpatient/Agency/Support Group Needs assisted living facility (specify);nursing home (specify) -- Anticipated Changes Related to Illness none -- Living Environment Transportation Available agency transportation;van, wheelchair accessible;ambulance -- Activity/Self Care Review of Systems Equipment Currently Used at Home none -- Goal: Interdisciplinary Rounds/Family Conf Outcome: Ongoing (Interventions Implemented as Appropriate) 01/30/181711 Interdisciplinary Rounds/Family Conf Participants patient;nursing Problem: Skin Integrity Impairment, Risk/Actual (Adult) Goal: Skin Integrity/Wound Healing Patient will demonstrate the desired outcomes by discharge/transition of care. Outcome: Ongoing (Interventions Implemented as Appropriate) 01/30/18 171 Skin Integrity Impairment, Risk/Actual (Adult) Skin Integrity/Wound Healing making progress toward outcome Problem: Thought Process Alteration (Adult) Goal: Improved Thought Process Patient will demonstrate the desired outcomes by discharge/transition of care. Outcome: Ongoing (Interventions Implemented as Appropriate) 01/31/181746 Thought Process Alteration (Adult) Improved Thought Process making progress toward outcome * Plan of Care - Jodee Azevedo RN - 01/31/2018 6:00 PM EDT Problem: Patient Care Overview Goal: Plan of Care Review Outcome: Ongoing (Interventions Implemented as Appropriate) 01/31/181746 Coping/Psychosocial Plan Of Care Reviewed With patient Plan of Care Review Progress progress towards functional goals is fair . OUTCOME EVALUATION NOTE: OUTCOME SUMMARY: Patient AOx1 to self, drowsy/quiet during a.m., shouting/cambative at times in the p.m., 1:1 sitterat bedside, good PO intake, complains of left knee pain, Ibuprofen given 1x, ice pack applied with good effect PLAN MOVING FORWARD: Continue with 1:1 supervision for safety, monitor VS, labs, I&O's, fall prevention measures INDIVIDUALIZED FALL PREVENTION INTERVENTIONS: Patient-specific fall risk factors per assessment: [current deficits]: Disoriented, blind, limited capacity to follow directions/combative, Assistance [level of assistance required for transfers and ambulation]: Assist x 2 Supervision [direct monitoring required during toileting and ADLs]: Hands on, constant supervision/assitance Surveillance [continuous indirect monitoring]: refuses Jose, spot checks as needed, bed alarm on Patient-specific fall prevention interventions for sensory deficits provided, if applicable: Sitter1:1 Visit Vitals ??? BP 125/74 (BP Location (NBP): Left arm, Patient Position: Lying) ??? Pulse 100 ??? Temp 36.6 ??C (97.9 ??F) (Oral) ??? Resp 16 ??? Ht 177.8 cm (5' 10) ??? Wt 98.9 kg (218 lb 1.6 oz) ??? SpO2 97% ??? BMI 31.29 kg/m2 Jodee Azevedo, HETAHER Goal: Fall Prevention-Safe Patient Handling Outcome: Ongoing (Interventions Implemented as Appropriate) 01/31/181746 Restraint Interventions Safety Promotion/Fall Prevention activity supervised;other (see comments) (1:1 sitter) Activity Activity Type activity encouraged Activity Assistance Provided assistance, 2 people;assistance, 1 person Daily Care Interventions Self-Care Promotion meal setup provided Goal: Infection Control Outcome: Ongoing (Interventions Implemented as Appropriate) 01/31/18 174 Coping Strategies Supportive Measures positive reinforcement provided Safety Interventions Isolation Precautions standard precautions maintained Infection Prevention single patient room provided Problem: Fracture Orthopaedic (Adult) Intervention: Promote Functional Ability/Mobility 01/31/18 1734 Activity Activity Type activity adjusted per tolerance Intervention: Promote Effective Elimination 01/31/18 174 Manage Acute Burn Pain Bowel Intervention adequate fluid intake promoted Genitourinary () Interventions Urinary Elimination Promotion toileting offered Problem: Thought Process Alteration (Adult) Goal: Improved Thought Process Patient will demonstrate the desired outcomes by discharge/transition of care. Outcome: Ongoing (Interventions Implemented as Appropriate) 01/31/181746 Thought Process Alteration (Adult) Improved Thought Process making progress toward outcome * Plan of Care - Adia Feng RN - 01/31/2018 3:57 AM EDT Problem: Patient Care Overview Goal: Plan of Care Review Outcome: Ongoing (Interventions Implemented as Appropriate) 01/21/18 0329 01/30/182051 Coping/Psychosocial Plan Of Care Reviewed With -- patient Plan of Care Review Progress no change -- OUTCOME EVALUATION NOTE: OUTCOME SUMMARY: Pt is alert and oriented to self and place, VSS. Pain level 6/10 on faces scale to L Knee. Repositioning, ice and pain medication to relieve pain. 1:1 observation continued, sitter at bedside. Pt incontinent of urine during shift, incontinent care provided and linens changed. No acute changes overnight. Pt medicated per SEP. Will continue to monitor. PLAN MOVING FORWARD: 1:1 observation continued, sitter at bedside. Vital signs, pain level, fall prevention continued. INDIVIDUALIZED FALL PREVENTION INTERVENTIONS: Patient-specific fall risk factors per assessment: [current deficits]: Cognitive deficit, generalized weakness, pain to L knee. Assistance [level of assistance required for transfers and ambulation]: 1 assist with walker. Supervision [direct monitoring required during toileting and ADLs]: Hands on, eyes on at all times.1:1 observation, sitter at bedside. Surveillance [continuous indirect monitoring]: Vital signs, pain level, fall prevention, pressure ulcer prevention, incontinence care. Patient-specific fall prevention interventions for sensory deficits provided, if applicable: [X] Yes [facility] GOAL OUTCOME EVALUATION: Goal: Individualization & Mutuality Outcome: Ongoing (Interventions Implemented as Appropriate) 10/17/17 1745 11/18/17 0546 01/25/18 0243 Individualization Patient Specific Preferences -- -- Enjoys icecream, applesauce or pudding for medications. Patient Specific Goals -- -- maintain safety, ambulate three times daily Patient Specific Interventions -- -- encourage ambulation, restrict fluids Mutuality/Individual Preferences What Anxieties, Fears or Concerns Do You Have About Your Health or Care? ISHAAN -- -- What Questions Do You Have About Your Health or Care? ISHAAN -- -- What Information Would Help Us Give You More Personalized Care? -- SisterBettina, is his guardian -- Goal: Fall Prevention-Safe Patient Handling Outcome: Ongoing (Interventions Implemented as Appropriate) 01/30/18205101/31/18 0144 Restraint Interventions Safety Promotion/Fall Prevention -- activity supervised;safety round/check completed;nonskid shoes/slippers when out of bed;fall prevention program maintained;toileting scheduled Activity Activity Type activity adjusted per tolerance -- Activity Assistance Provided -- assistance, 1 person Assistive Device Utilized front-wheel walker -- Positioning Body Position independent -- Daily Care Interventions Self-Care Promotion independence encouraged -- [place] Fall Risk History of Falling 25 -- Secondary Diagnosis 15 -- Ambulatory Aids 15 -- Intravenous Therapy/Heparin/Saline Lock 0 -- Gait/Transferring 10 -- Mental Status 15 -- Score 80 -- OTHER [place] Fall Risk High -- Goal: Infection Control Outcome: Ongoing (Interventions Implemented as Appropriate) 01/30/18205101/31/18 014 Coping Strategies Supportive Measures active listening utilized;positive reinforcement provided;verbalization of feelings encouraged;self-care encouraged -- Safety Interventions Isolation Precautions -- standard precautions maintained Infection Prevention -- rest/sleep promoted;single patient room provided;equipment surfaces disinfected;environmental surveillance performed Goal: Discharge Needs Assessment Outcome: Ongoing (Interventions Implemented as Appropriate) 01/05/18221501/30/18 1712 Discharge Needs Assessment Concerns To Be Addressed basic needs concerns;discharge planning concerns;cognitive/perceptual concerns;care coordination/care conferences -- Readmission Within The Last 30 Days no previous admission in last 30 days -- Provider Choice List(s) Given yes -- Equipment Needed After Discharge wheelchair;walker, rolling -- Discharge Facility/Level Of Care Needs assisted living facility;nursing facility, skilled;nursing facility, basic -- Current Discharge Risk chronically ill;dependent with mobility/activities of daily living;cognitively impaired;physical impairment -- Discharge Disposition -- still a patient Current Health Outpatient/Agency/Support Group Needs assisted living facility (specify);nursing home (specify) -- Anticipated Changes Related to Illness none -- Living Environment Transportation Available agency transportation;van, wheelchair accessible;ambulance -- Activity/Self Care Review of Systems Equipment Currently Used at Home none -- Goal: Interdisciplinary Rounds/Family Conf Outcome: Ongoing (Interventions Implemented as Appropriate) 01/30/18 1712 Interdisciplinary Rounds/Family Conf Participants patient;nursing Problem: Skin Integrity Impairment, Risk/Actual (Adult) Goal: Skin Integrity/Wound Healing Patient will demonstrate the desired outcomes by discharge/transition of care. Outcome: Ongoing (Interventions Implemented as Appropriate) 01/30/18 1712 Skin Integrity Impairment, Risk/Actual (Adult) Skin Integrity/Wound Healing making progress toward outcome Problem: Thought Process Alteration (Adult) Goal: Improved Thought Process Patient will demonstrate the desired outcomes by discharge/transition of care. Outcome: Ongoing (Interventions Implemented as Appropriate) 01/30/18 1712 Thought Process Alteration (Adult) Improved Thought Process making progress toward outcome * Plan of Care - Emili Gavin RN - 01/30/2018 5:32 PM EDT Problem: Patient Care Overview Goal: Plan of Care Review Outcome: Ongoing (Interventions Implemented as Appropriate) 01/21/18 0329 01/30/18 0815 Coping/Psychosocial Plan Of Care Reviewed With -- patient Plan of Care Review Progress no change -- OUTCOME EVALUATION NOTE: ? OUTCOME SUMMARY:Miguel Angel Mason is a 27 y.o. male pt AXO to self and place intermittently. VSS on RA. Pt had no c/o pain. Pt sleeping between care. 1:1 sitter at bedside. Pt had good pleasant attitudefor shift and was able to participate in care. Pt ambulated with 1 assist with sitter in room.Fluid restriction maintained. No acute changes. Safety maintained. ? PLAN MOVING FORWARD: ? Encourage ambulation, Placement, 1:1 sitter ? INDIVIDUALIZED FALL PREVENTION INTERVENTIONS: ? Patient-specific fall risk factors per assessment: [current deficits]:??Highfall risk: Visually impaired, generalized weakness, pain ? Assistance [level of assistance required for transfers and ambulation]:??2 assist ? Supervision [direct monitoring required during toileting and ADLs]:??Hands on ? Surveillance [continuous indirect monitoring]:??Purposeful rounding, 1:1 sitter ? Patient-specific fall prevention interventions for sensory deficits provided, if applicable:?[X]Yes??Blind ? [facility] GOAL OUTCOME EVALUATION:?Ongoing Goal: Fall Prevention-Safe Patient Handling 01/30/1881401/30/18 0901/30/18 1304 Restraint Interventions Safety Promotion/Fall Prevention -- -- activity supervised;safety round/check completed;nonskid shoes/slippers when out of bed;fall prevention program maintained Activity Activity Type -- activity encouraged;ambulated in room;ambulated to bathroom;sitting, edge of bed;stand at bedside -- Activity Assistance Provided -- assistance, 1 person -- Assistive Device Utilized -- front-wheel walker -- Positioning Body Position -- independent -- Daily Care Interventions Self-Care Promotion independence encouraged -- -- [place] Fall Risk History of Falling 25 -- -- Secondary Diagnosis 15 -- -- Ambulatory Aids 15 -- -- Intravenous Therapy/Heparin/Saline Lock 0 -- -- Gait/Transferring 10 -- -- Mental Status 15 -- -- Score 80 -- -- OTHER [place] Fall Risk High -- -- Goal: Infection Control Outcome: Ongoing (Interventions Implemented as Appropriate) 01/30/18 0801/30/18 1304 Coping Strategies Supportive Measures active listening utilized;self-care encouraged;self- reflection promoted;positive reinforcement provided -- Safety Interventions Isolation Precautions -- standard precautions maintained Infection Prevention -- rest/sleep promoted;single patient room provided Goal: Discharge Needs Assessment 01/30/18 1712 Discharge Needs Assessment Discharge Disposition still a patient Goal: Interdisciplinary Rounds/Family Conf Outcome: Ongoing (Interventions Implemented as Appropriate) 01/30/18 1712 Interdisciplinary Rounds/Family Conf Participants patient;nursing Problem: Skin Integrity Impairment, Risk/Actual (Adult) Goal: Skin Integrity/Wound Healing Patient will demonstrate the desired outcomes by discharge/transition of care. Outcome: Ongoing (Interventions Implemented as Appropriate) 01/30/18 1712 Skin Integrity Impairment, Risk/Actual (Adult) Skin Integrity/Wound Healing making progress toward outcome Problem: Thought Process Alteration (Adult) Goal: Improved Thought Process Patient will demonstrate the desired outcomes by discharge/transition of care. Outcome: Ongoing (Interventions Implemented as Appropriate) 01/30/18 1712 Thought Process Alteration (Adult) Improved Thought Process making progress toward outcome * Plan of Care - Jolene Domínguez RN - 01/30/2018 5:41 AM EDT Problem: Patient Care Overview Goal: Plan of Care Review Outcome: Ongoing (Interventions Implemented as Appropriate) 01/21/18 0329 01/29/18 2030 Coping/Psychosocial Plan Of Care Reviewed With -- patient Plan of Care Review Progress no change -- OUTCOME EVALUATION NOTE: OUTCOME SUMMARY: Pt alert and oriented to self and place overnight. VSS. Pt denied any pain. Pt agitated, yelling, and screaming around 2200, prn Seroquel admin per order, see MAR. 1:1 sitter at bedside. Pt slept intermittently overnight. No acute changes. Safety maintained. PLAN MOVING FORWARD: Encourage ambulation Placement INDIVIDUALIZED FALL PREVENTION INTERVENTIONS: Patient-specific fall risk factors per assessment: [current deficits]: Generalized weakness, pain, visually impaired Assistance [level of assistance required for transfers and ambulation]: 1-2 assist Supervision [direct monitoring required during toileting and ADLs]: Hands on Surveillance [continuous indirect monitoring]: 1:1 sitter, purposeful rounding Patient-specific fall prevention interventions for sensory deficits provided, if applicable: [X] Yes Visually impaired [facility] GOAL OUTCOME EVALUATION: * Plan of Care - Emili Gavin RN - 01/29/2018 4:58 PM EDT Problem: Patient Care Overview Goal: Plan of Care Review Outcome: Ongoing (Interventions Implemented as Appropriate) 01/21/18 0329 01/29/18 0933 Coping/Psychosocial Plan Of Care Reviewed With -- patient Plan of Care Review Progress no change -- OUTCOME EVALUATION NOTE: ?? OUTCOME SUMMARY:Miguel Angel Mason is a 27 y.o. male pt AXO to self and place intermittently. VSS on RA. Pt had no c/o pain. Pt sleeping between care. 1:1 sitter at bedside. Pt had good pleasant attitudefor shift and was able to participate in care. Pt ambulated with 3 assist about 30 feet and tolerated until he sat down and tried to get up with pain. Pt began to scream and had to be brought back tohis room with a wheelchair. Fluid restriction maintained. No acute changes. Safety maintained. ?? PLAN MOVING FORWARD: ?? Encourage ambulation, Placement, 1:1 sitter ?? INDIVIDUALIZED FALL PREVENTION INTERVENTIONS: ?? Patient-specific fall risk factors per assessment: [current deficits]: Highfall risk: Visually impaired, generalized weakness, pain ?? Assistance [level of assistance required for transfers and ambulation]: 2 assist ?? Supervision [direct monitoring required during toileting and ADLs]: Hands on ?? Surveillance [continuous indirect monitoring]: Purposeful rounding, 1:1 sitter ?? Patient-specific fall prevention interventions for sensory deficits provided, if applicable: [X] Yes Blind ? [facility] GOAL OUTCOME EVALUATION: ?? Goal: Fall Prevention-Safe Patient Handling Outcome: Ongoing (Interventions Implemented as Appropriate) 01/29/18 0933 01/29/18 1000 01/29/18 1300 Restraint Interventions Safety Promotion/Fall Prevention -- nonskid shoes/slippers when out of bed;safety round/check completed;fall prevention program maintained -- Activity Activity Type -- -- activity adjusted per tolerance;activity encouraged;ambulated to bathroom Activity Assistance Provided -- -- assistance, 1 person Assistive Device Utilized -- -- front-wheel walker Positioning Body Position -- independent -- Daily Care Interventions Self-Care Promotion independence encouraged -- -- [place] Fall Risk History of Falling 25 -- -- Secondary Diagnosis 15 -- -- Ambulatory Aids 15 -- -- Intravenous Therapy/Heparin/Saline Lock 0 -- -- Gait/Transferring 10 -- -- Mental Status 15 -- -- Score 80 -- -- OTHER [place] Fall Risk High -- -- Goal: Infection Control Outcome: Ongoing (Interventions Implemented as Appropriate) 01/29/18 0933 Coping Strategies Supportive Measures active listening utilized Safety Interventions Isolation Precautions standard precautions maintained Infection Prevention environmental surveillance performed;rest/sleep promoted;single patient room provided Goal: Discharge Needs Assessment Outcome: Ongoing (Interventions Implemented as Appropriate) 01/29/18 164 Discharge Needs Assessment Discharge Disposition still a patient Goal: Interdisciplinary Rounds/Family Conf Outcome: Ongoing (Interventions Implemented as Appropriate) 01/29/18 164 Interdisciplinary Rounds/Family Conf Participants patient;nursing Problem: Thought Process Alteration (Adult) Goal: Improved Thought Process Patient will demonstrate the desired outcomes by discharge/transition of care. Outcome: Ongoing (Interventions Implemented as Appropriate) 01/29/18 164 Thought Process Alteration (Adult) Improved Thought Process making progress toward outcome * Plan of Care - Jolene Domínguez RN - 01/29/2018 6:28 AM EDT Problem: Patient Care Overview Goal: Plan of Care Review Outcome: Ongoing (Interventions Implemented as Appropriate) 01/21/18 0329 01/28/182108 Coping/Psychosocial Plan Of Care Reviewed With -- patient Plan of Care Review Progress no change -- OUTCOME EVALUATION NOTE: OUTCOME SUMMARY: Pt alert and oriented to self and place overnight. VSS. Pt denied any pain. Pt sleeping between care. 1:1 sitter at bedside. No acute changes. Safety maintained. PLAN MOVING FORWARD: Encourage ambulation Placement INDIVIDUALIZED FALL PREVENTION INTERVENTIONS: Patient-specific fall risk factors per assessment: [current deficits]: Visually impaired, generalized weakness, pain Assistance [level of assistance required for transfers and ambulation]: 2 assist Supervision [direct monitoring required during toileting and ADLs]: Hands on Surveillance [continuous indirect monitoring]: Purposeful rounding, 1:1 sitter Patient-specific fall prevention interventions for sensory deficits provided, if applicable: [X] Yes Blind [facility] GOAL OUTCOME EVALUATION: * Plan of Care - Mady Recio RN - 01/28/2018 3:29 PM EDT Problem: Patient Care Overview Goal: Plan of Care Review Outcome: Ongoing (Interventions Implemented as Appropriate) 01/21/18 0329 01/28/18 0842 Coping/Psychosocial Plan Of Care Reviewed With -- patient Plan of Care Review Progress no change -- OUTCOME EVALUATION NOTE: OUTCOME SUMMARY: Pt was calm and cooperative throughout shift. Intermittently agitated at times. VSS. A&O to self and location; disoriented to time and situation. 1:1 sitter continued. Assessment as documented. K+ was 3.4 and potassium chloride ordered. No acute events. Will continue to monitor. PLAN MOVING FORWARD: Placement INDIVIDUALIZED FALL PREVENTION INTERVENTIONS: Patient-specific fall risk factors per assessment: [current deficits]: Cognitively impaired, generalized weakness-moderately impaired Assistance [level of assistance required for transfers and ambulation]: 2-3 assist with walker Supervision [direct monitoring required during toileting and ADLs]: Hands and eyes on Surveillance [continuous indirect monitoring]: Purposeful rounding, 1:1 supervision, spot checks Patient-specific fall prevention interventions for sensory deficits provided, if applicable: [X] Yes CPG GOAL OUTCOME EVALUATION: * Plan of Care - Samantha Mix RN - 01/28/2018 4:14 AM EDT Problem: Patient Care Overview Goal: Plan of Care Review 01/21/1832801/27/18 0817 Coping/Psychosocial Plan Of Care Reviewed With -- patient Plan of Care Review Progress no change -- OUTCOME EVALUATION NOTE: OUTCOME SUMMARY: Pt calm and cooperative overnight, denying pain, VSS. Pt sleeping between care, sitter at bedside. Urine concentrated overnight, reaching FR 3200cc overnight. No acute changes, will continue to monitor. PLAN MOVING FORWARD: placement, ambulation INDIVIDUALIZED FALL PREVENTION INTERVENTIONS: Patient-specific fall risk factors per assessment: [current deficits]: Assistance [level of assistance required for transfers and ambulation]: Turns self Supervision [direct monitoring required during toileting and ADLs]: Bed alarm Surveillance [continuous indirect monitoring]: 1:1 sitter at beside Patient-specific fall prevention interventions for sensory deficits provided, if applicable: [X] Yes CPG GOAL OUTCOME EVALUATION: * Plan of Care - Mady Recio RN - 01/27/2018 4:00 PM EDT Problem: Patient Care Overview Goal: Plan of Care Review Outcome: Ongoing (Interventions Implemented as Appropriate) 01/21/18 0329 01/27/18 0817 Coping/Psychosocial Plan Of Care Reviewed With -- patient Plan of Care Review Progress no change -- OUTCOME EVALUATION NOTE: OUTCOME SUMMARY: Pt was calm and cooperative throughout shift. Intermittently agitated at times. VSS. A&O to self and location; disoriented to time and situation. 1:1 sitter continued. Assessment as documented. Pt refused to walk with staff. No acute events. Will continue to monitor. PLAN MOVING FORWARD: Awaiting placement. Rehab pt in hospital INDIVIDUALIZED FALL PREVENTION INTERVENTIONS: Patient-specific fall risk factors per assessment: [current deficits]: Generalized weakness-moderately impaired, cognitive impairment, Assistance [level of assistance required for transfers and ambulation]: 2-3 assist with walker and wheelchair following Supervision [direct monitoring required during toileting and ADLs]: Hands and eyes on Surveillance [continuous indirect monitoring]: Purposeful rounding, 1:1 supervision, spot checks Patient-specific fall prevention interventions for sensory deficits provided, if applicable: [X] Yes CPG GOAL OUTCOME EVALUATION: * Plan of Care - Emerald Rasheed RN - 01/27/2018 4:55 AM EDT Problem: Patient Care Overview Goal: Plan of Care Review Outcome: Ongoing (Interventions Implemented as Appropriate) 01/21/18 0329 01/26/18 2300 Coping/Psychosocial Plan Of Care Reviewed With -- patient Plan of Care Review Progress no change -- OUTCOME EVALUATION NOTE: OUTCOME SUMMARY: Patient alert, difficult to assess orientation though seems to be oriented to selfand situation. Denies pain. Incontinent of urine multiple times- incontinence care provided. Sittermaintained at bedside. Will cont to monitor. PLAN MOVING FORWARD: Maintain rehab plan throughout day, sleep/wake cycle INDIVIDUALIZED FALL PREVENTION INTERVENTIONS: Patient-specific fall risk factors per assessment: [current deficits]: Disorientation, behavior Assistance [level of assistance required for transfers and ambulation]: Two assist with walker Supervision [direct monitoring required during toileting and ADLs]: Hands on Surveillance [continuous indirect monitoring]: Purposeful rounding, nurse knowledge exchange Patient-specific fall prevention interventions for sensory deficits provided, if applicable: No CPG GOAL OUTCOME EVALUATION: * Plan of Care - Diana Greco RN - 01/26/2018 12:42 PM EDT Problem: Patient Care Overview Goal: Plan of Care Review Outcome: Ongoing (Interventions Implemented as Appropriate) 01/21/18 0329 01/26/18 0813 Coping/Psychosocial Plan Of Care Reviewed With -- patient Plan of Care Review Progress no change -- OUTCOME EVALUATION NOTE: ? OUTCOME SUMMARY: ? Pt had a good day. Pt oriented to self at this time. incontinence care provided prn. Safety maintained. Will continue to monitor. ? PLAN MOVING FORWARD: ? -Pain Control -Mobilize -d/c planning ? INDIVIDUALIZED FALL PREVENTION: ? Pt is at risk to fall due to weakness, medication regimen, confusion, blind ? Assistance:?? -1-2-assist with walker ? Supervision:? -hands-on/eyes on for all transfers and ambulation ? Surveillance:? -Bed Alarm/Chair Alarm -Purposeful Rounding -Team Care -Nurse Knowledge Exchange ? CPG OUTCOME EVALUATION: * Plan of Care - Emerald Rasheed RN - 01/26/2018 3:53 AM EDT Problem: Patient Care Overview Goal: Plan of Care Review Outcome: Ongoing (Interventions Implemented as Appropriate) 01/21/18 0329 01/25/182154 Coping/Psychosocial Plan Of Care Reviewed With -- patient Plan of Care Review Progress no change -- OUTCOME EVALUATION NOTE: OUTCOME SUMMARY: Patient alert and oriented to self. Reports pain to left knee following ambulationto commode- PRN Ibuprofen administered. Able to have large BM. Patient yelling out until approx 2300, appears to be sleeping well rest of shift. Sitter maintained at bedside. Will cont to monitor. PLAN MOVING FORWARD: Rehab while here, follow daily schedule INDIVIDUALIZED FALL PREVENTION INTERVENTIONS: Patient-specific fall risk factors per assessment: [current deficits]: Unsteady gait Assistance [level of assistance required for transfers and ambulation]: 2 assist w/ walker Supervision [direct monitoring required during toileting and ADLs]: Hands on Surveillance [continuous indirect monitoring]: Purposeful rounding, nurse knowledge exchange Patient-specific fall prevention interventions for sensory deficits provided, if applicable: No CPG GOAL OUTCOME EVALUATION: Goal: Individualization & Mutuality Outcome: Ongoing (Interventions Implemented as Appropriate) 10/17/17 1745 11/18/17 0546 01/25/18 0243 Individualization Patient Specific Preferences -- -- Enjoys icecream, applesauce or pudding for medications. Patient Specific Goals -- -- maintain safety, ambulate three times daily Patient Specific Interventions -- -- encourage ambulation, restrict fluids Mutuality/Individual Preferences What Anxieties, Fears or Concerns Do You Have About Your Health or Care? ISHAAN -- -- What Questions Do You Have About Your Health or Care? ISHAAN -- -- What Information Would Help Us Give You More Personalized Care? -- Sister, Bettina, is his guardian -- Goal: Fall Prevention-Safe Patient Handling 01/25/182154 Restraint Interventions Safety Promotion/Fall Prevention activity supervised;safety round/check completed;nonskid shoes/slippers when out of bed;muscle strengthening facilitated;fall prevention program maintained Activity Activity Type activity adjusted per tolerance Activity Assistance Provided assistance, 3 or more people Assistive Device Utilized front-wheel walker Positioning Body Position independent Daily Care Interventions Self-Care Promotion independence encouraged;BADL personal objects within reach;BADL personal routines maintained [place] Fall Risk History of Falling 25 Secondary Diagnosis 15 Ambulatory Aids 15 Intravenous Therapy/Heparin/Saline Lock 0 Gait/Transferring 10 Mental Status 15 Score 80 OTHER [place] Fall Risk High * Plan of Care - Diana Greco RN - 01/25/2018 12:30 PM EDT Problem: Patient Care Overview Goal: Plan of Care Review Outcome: Ongoing (Interventions Implemented as Appropriate) 01/21/18 0329 01/25/18 0833 Coping/Psychosocial Plan Of Care Reviewed With -- patient Plan of Care Review Progress no change -- OUTCOME EVALUATION NOTE: ? OUTCOME SUMMARY: ? Pt oriented to self at this time. incontinence care provided prn. Safety maintained. Pt ambulating around unit. Sister called this am looking for updates. Will continue to monitor. ? PLAN MOVING FORWARD: ? -Pain Control -Mobilize -d/c planning ? INDIVIDUALIZED FALL PREVENTION: ? Pt is at risk to fall due to weakness, medication regimen, confusion, blind ? Assistance:?? -1-2-assist with walker ? Supervision:? -hands-on/eyes on for all transfers and ambulation ? Surveillance:? -Bed Alarm/Chair Alarm -Purposeful Rounding -Team Care -Nurse Knowledge Exchange ? CPG OUTCOME EVALUATION: * Plan of Care - Cristy Lu RN - 01/25/2018 2:48 AM EDT Problem: Patient Care Overview Goal: Plan of Care Review OUTCOME EVALUATION NOTE: OUTCOME SUMMARY: Alert. Physical assessment as documented. Hypertensive at beginning of shift - MD notified & aware. Ambulated in quinn with gait belt, walker and two person assist. Tolerated ambulation well, did exhibit signs of right knee discomfort - Bengay applied with good effect. Went outside in wheelchairthis evening with staff member. Given all scheduled evening medications. Slept for most of the night. No other events. Will continue to monitor and notify with any changes. PLAN MOVING FORWARD: Encourage ambulation, pain management, 3.2L FR, sitter at bedside, discharge planning INDIVIDUALIZED FALL PREVENTION INTERVENTIONS: Patient-specific fall risk factors per assessment: [current deficits]: Generalized weakness, unsteady gait, pain Assistance [level of assistance required for transfers and ambulation]: gait belt, FWW, two person assist Supervision [direct monitoring required during toileting and ADLs]: Hands on Surveillance [continuous indirect monitoring]: Hourly rounding, call morris in reach, pt room near unit station, bed alarm, sitter at bedside Patient-specific fall prevention interventions for sensory deficits provided, if applicable: [X] No CPG GOAL OUTCOME EVALUATION: * Plan of Care - Diana Greco RN - 01/24/2018 1:37 PM EDT Problem: Patient Care Overview Goal: Plan of Care Review Outcome: Ongoing (Interventions Implemented as Appropriate) 01/21/18 0329 01/24/18 0000 Coping/Psychosocial Plan Of Care Reviewed With -- patient Plan of Care Review Progress no change -- OUTCOME EVALUATION NOTE: ?? OUTCOME SUMMARY: ?? Pt oriented to self at this time. incontinence care provided prn. Safety maintained. Will continue to monitor. ?? PLAN MOVING FORWARD: ?? -Pain Control -Mobilize -d/c planning ?? INDIVIDUALIZED FALL PREVENTION: ?? Pt is at risk to fall due to weakness, medication regimen, confusion, blind ?? Assistance: -1-2-assist with walker ?? Supervision: -hands-on/eyes on for all transfers and ambulation ? Surveillance: -Bed Alarm/Chair Alarm -Purposeful Rounding -Team Care -Nurse Knowledge Exchange ? CPG OUTCOME EVALUATION: ?? * Plan of Care - Mariposa Harkins RN - 01/24/2018 5:56 AM EDT Problem: Patient Care Overview Goal: Plan of Care Review Outcome: Ongoing (Interventions Implemented as Appropriate) ? 01/23/18 0329 01/24/18 1122 Coping/Psychosocial Plan Of Care Reviewed With -- patient Plan of Care Review Progress no change -- ? OUTCOME EVALUATION NOTE: ? OUTCOME SUMMARY: Several episodes of yelling overnight, otherwise he appeared to sleep well and without incident. Medications given per MAR, continue to monitor for changes. ? PLAN MOVING FORWARD: Continue to rehab patient, monitor labs, sitter at bedside for safety. ? INDIVIDUALIZED FALL PREVENTION INTERVENTIONS: ? Patient-specific fall risk factors per assessment: [current deficits]:?High falls risk, Left acetabular fracture, Hx of CVA, blind ? Assistance [level of assistance required for transfers and ambulation]:?1 person assist with walker ? Supervision [direct monitoring required during toileting and ADLs]:?Hands on ? Surveillance [continuous indirect monitoring]:?hourly rounding, sitter at bedside ? Patient-specific fall prevention interventions for sensory deficits provided, if applicable:?[X]N/A ? CPG GOAL OUTCOME EVALUATION:? * Plan of Care - Diana Greco RN - 01/23/2018 1:09 PM EDT Problem: Patient Care Overview Goal: Plan of Care Review Outcome: Ongoing (Interventions Implemented as Appropriate) 01/21/18 0329 01/23/18 0950 Coping/Psychosocial Plan Of Care Reviewed With -- patient Plan of Care Review Progress no change -- OUTCOME EVALUATION NOTE: OUTCOME SUMMARY: Pt oriented to self at this time. incontinence care provided prn. Safety maintained. Will continue to monitor. PLAN MOVING FORWARD: -Pain Control -Mobilize -d/c planning INDIVIDUALIZED FALL PREVENTION: Pt is at risk to fall due to weakness, medication regimen, confusion, blind Assistance: -1-2-assist with walker Supervision: -hands-on/eyes on for all transfers and ambulation Surveillance: -Bed Alarm/Chair Alarm -Purposeful Rounding -Team Care -Nurse Knowledge Exchange CPG OUTCOME EVALUATION: * Plan of Care - Mariposa Harkins RN - 01/23/2018 4:17 AM EDT Problem: Patient Care Overview Goal: Plan of Care Review Outcome: Ongoing (Interventions Implemented as Appropriate) ?? 01/21/18 0329 01/22/18 1122 Coping/Psychosocial Plan Of Care Reviewed With -- patient Plan of Care Review Progress no change -- ?? OUTCOME EVALUATION NOTE: ?? OUTCOME SUMMARY: Two periods of urinary incontinence overnight, sleeping in long naps, denies pain, medications given per MAR, sitter at bedside. No other issues noted, continue to monitor for changes. ?? PLAN MOVING FORWARD: Continue to rehab patient, monitor labs ?? INDIVIDUALIZED FALL PREVENTION INTERVENTIONS: ?? Patient-specific fall risk factors per assessment: [current deficits]: High falls risk, Left acetabular fracture, Hx of CVA, blind ?? Assistance [level of assistance required for transfers and ambulation]: 1 person assist with walker ?? Supervision [direct monitoring required during toileting and ADLs]: Hands on ?? Surveillance [continuous indirect monitoring]: hourly rounding, sitter at bedside ?? Patient-specific fall prevention interventions for sensory deficits provided, if applicable: [X] N/A ? CPG GOAL OUTCOME EVALUATION: ?? * Plan of Care - Mavis Richardson RN - 01/22/2018 3:54 PM EDT Problem: Patient Care Overview Goal: Plan of Care Review Outcome: Ongoing (Interventions Implemented as Appropriate) 01/21/18 03201/22/18 1122 Coping/Psychosocial Plan Of Care Reviewed With -- patient Plan of Care Review Progress no change -- OUTCOME EVALUATION NOTE: OUTCOME SUMMARY: Assessment done and meds given. Sodium 140. RN and SCREENER AND BLENDER assisted with ambulating patient. He walked 40ft (pt counted 251 steps) to one pod and part way back with one walker. Pt. Has had a wonderful day. No events. Safety maintained. Vitals stable. (a little tachycardic following ambulation). PLAN MOVING FORWARD: Monitor sodium/ ambulate pt. INDIVIDUALIZED FALL PREVENTION INTERVENTIONS: Patient-specific fall risk factors per assessment: [current deficits]: High falls risk, Left acetabular fracture, past CVA Assistance [level of assistance required for transfers and ambulation]: 1 person assist with walker Supervision [direct monitoring required during toileting and ADLs]: Hands on Surveillance [continuous indirect monitoring]: Purposeful rounding, call morris in reach, sitter at bedside Patient-specific fall prevention interventions for sensory deficits provided, if applicable: [X] N/A CPG GOAL OUTCOME EVALUATION: * Plan of Care - Mady Foss RN - 01/22/2018 1:03 AM EDT Problem: Patient Care Overview Goal: Plan of Care Review Outcome: Ongoing (Interventions Implemented as Appropriate) 01/21/18 0329 01/21/18 2100 Coping/Psychosocial Plan Of Care Reviewed With -- patient Plan of Care Review Progress no change -- OUTCOME EVALUATION NOTE: OUTCOME SUMMARY: Pt alert to self, VSS, no c/o pain. Pt did well tonight, sang to music and threw the beach ball a bit before bed. Slept well overnight. No acute issues or events. PLAN MOVING FORWARD: Continue to monitor. INDIVIDUALIZED FALL PREVENTION INTERVENTIONS: Patient-specific fall risk factors per assessment: [current deficits]: Signficant weakness, new environment, high fall risk, blind Assistance [level of assistance required for transfers and ambulation]: 2 assist Supervision [direct monitoring required during toileting and ADLs]: hands on Surveillance [continuous indirect monitoring]: Masimo, purposeful rounding, bed alarm Patient-specific fall prevention interventions for sensory deficits provided, if applicable: [X] Yes, patient is blind CPG GOAL OUTCOME EVALUATION: * Plan of Care - Mavis Richardson RN - 01/21/2018 2:51 PM EDT Problem: Patient Care Overview Goal: Plan of Care Review Outcome: Ongoing (Interventions Implemented as Appropriate) 01/21/18 0329 01/21/18 1000 Coping/Psychosocial Plan Of Care Reviewed With -- patient Plan of Care Review Progress no change -- OUTCOME EVALUATION NOTE: OUTCOME SUMMARY: Assessment done and meds given per MD order. Pt. Ambulated in quinn and counted 110 steps (toleratedwell). L knee was bothering him after so scheduled tylenol was given. Sitter going to be taking patient outside today to get some fresh air. Pt up in chair and tolerating well). Sodium was 139 this AM. No events. Safety maintained. PLAN MOVING FORWARD: Sodium monitoring/ ambulation/ INDIVIDUALIZED FALL PREVENTION INTERVENTIONS: Patient-specific fall risk factors per assessment: [current deficits]: High falls risk, L acetabular fracture, Left sided-weakness d/t CVA. Assistance [level of assistance required for transfers and ambulation]: 2 person assist with walker Supervision [direct monitoring required during toileting and ADLs]: Hands/eyes on Surveillance [continuous indirect monitoring]: Purposeful rounding, call morris in reach, bed alarm on Patient-specific fall prevention interventions for sensory deficits provided, if applicable: [X] N/A CPG GOAL OUTCOME EVALUATION: * Plan of Care - Shruti Lozoya RN - 01/21/2018 4:19 AM EDT Problem: Patient Care Overview Goal: Plan of Care Review Outcome: Ongoing (Interventions Implemented as Appropriate) 01/21/18 0329 Coping/Psychosocial Plan Of Care Reviewed With patient Plan of Care Review Progress no change OUTCOME EVALUATION NOTE: OUTCOME SUMMARY: Pt admitted 09/02/17 with L LE fracture after a fall. Pt stable overnight, awaitingplacement. VSS. Denies pain. Ambulated to BR with 2 assist and FWW. Pt calm, cooperative with all care, assessments and medications. Sitter present at bedside. Incontinent x 1 this shift but otherwise continent of bowel and bladder. Will continue to monitor. PLAN MOVING FORWARD: Closely monitor VS, labs, assessments. Medicate as ordered and as needed. Provide calm, quiet, supportive environment. Await placement. Inform MD of any changes. INDIVIDUALIZED FALL PREVENTION INTERVENTIONS: Patient-specific fall risk factors per assessment: [current deficits]: Cognitive status, gait disturbance, weakness Assistance [level of assistance required for transfers and ambulation]: 2 assist and FWW when OOB for transfers and ambulation Supervision [direct monitoring required during toileting and ADLs]: Hands on if OOB for toileting, 1 assist for ADLs Surveillance [continuous indirect monitoring]: Hourly rounding, bed alarm Patient-specific fall prevention interventions for sensory deficits provided, if applicable: [X] Yes, call morris within easy reach, side rails up x 2-3, nonslip socks on if OOB, aggressive PT CPG GOAL OUTCOME EVALUATION: * Plan of Care - Sarika Michael RN - 01/20/2018 3:27 PM EDT Problem: Patient Care Overview Goal: Interdisciplinary Rounds/Family Conf Outcome: Ongoing (Interventions Implemented as Appropriate) 01/14/18 1844 Interdisciplinary Rounds/Family Conf Participants physician;nursing;shoe caser OUTCOME EVALUATION NOTE: OUTCOME SUMMARY: AxO to self and place, intermittently agitated and aggressive. VSS on room air. Pt intermittently c/o pain to hand and left hip, scheduled tylenol, bengay, and PRN ibuprofen given x1 with good effect. Pt up for wash up in bathroom, voiding w/o difficulty, some incontinence. Large BM today. Pt ambulating with 2-3 assist with walker, ambulating 15 feet. Requiring encouragement and reinforcement rega rding ambulation. Pt went off unit in wheelchair with 2 staff members. Great PO intake throughout day. Fluid restriction continues. Sitter remains at bedside. Will continue to monitor and page with any changes. PLAN MOVING FORWARD: Encourage strength and mobility. Await d/c plan. Frequent toileting. INDIVIDUALIZED FALL PREVENTION INTERVENTIONS: Patient-specific fall risk factors per assessment: [current deficits]: Hx of falls, impulsivity, impaired mobility. Assistance [level of assistance required for transfers and ambulation]: 2 assist with walker. Supervision [direct monitoring required during toileting and ADLs]: Hands on. Surveillance [continuous indirect monitoring]: Hourly rounding, room near unit station, call morris within reach, sitter at bedside. Patient-specific fall prevention interventions for sensory deficits provided, if applicable: [X] N/A CPG GOAL OUTCOME EVALUATION: * Plan of Care - Shruti Lozoya RN - 01/20/2018 6:10 AM EDT Problem: Patient Care Overview Goal: Plan of Care Review Outcome: Ongoing (Interventions Implemented as Appropriate) 01/20/18 0603 Coping/Psychosocial Plan Of Care Reviewed With patient Plan of Care Review Progress no change OUTCOME EVALUATION NOTE: OUTCOME SUMMARY: Pt admitted 09/02/17 with LLE fracture after a fall at home. Pt s/p fracture repair, now medically stable and awaiting rehab bed/placement. Pt calm and relaxed all night. Cooperative with exam, care, meds, assessment. A/O to self, , place. Not oriented to date or full situation. Answers questions appropriately. Used urinal overnight and 1 episode of urinary incontinence. Deniespain. Will continue to monitor and will inform MD of any changes. PLAN MOVING FORWARD: Closely monitor VS, labs, assessments. Medicate as ordered and as needed. Encourage OOB for meals and encourage ambulation. Encourage frequent toileting and use of urinal. InformMD of any changes. INDIVIDUALIZED FALL PREVENTION INTERVENTIONS: Patient-specific fall risk factors per assessment: [current deficits]: Weakness, deconditioning, mental status Assistance [level of assistance required for transfers and ambulation]: 2 assist and FWW if OOB fortransfers and ambulation Supervision [direct monitoring required during toileting and ADLs]: Hands on if OOB for toileting, 1 assist for ADLs Surveillance [continuous indirect monitoring]: Hourly rounding, bedside sitter Patient-specific fall prevention interventions for sensory deficits provided, if applicable: [X] Yes, call morris within easy reach, side rails up x 3, nonslip socks on if OOB, PT consult CPG GOAL OUTCOME EVALUATION: * Plan of Care - Sarika Michael RN - 01/19/2018 2:54 PM EDT Problem: Patient Care Overview Goal: Interdisciplinary Rounds/Family Conf Outcome: Ongoing (Interventions Implemented as Appropriate) 01/14/18 1844 Interdisciplinary Rounds/Family Conf Participants physician;nursing;shoe caser OUTCOME EVALUATION NOTE: OUTCOME SUMMARY: AxO to self and place, disoriented to time and situation. VSS on room air. Difficult to assess painbut scheduled tylenol given. Pt had large BM and voiding with encouragement in urinal and commode, no incontinence with scheduled toileting. Requiring 2 assist with walker but cooperative with ambulating 27 steps and then 140 [address] in hallway with staff later in day. Sitter remains at bedside. GoodPO intake throughout day. Will continue to monitor and page with any changes. PLAN MOVING FORWARD: Await placement. Monitor strength and mobility. Monitor/manage pain. INDIVIDUALIZED FALL PREVENTION INTERVENTIONS: Patient-specific fall risk factors per assessment: [current deficits]: Hx of falls, impulsivity. Assistance [level of assistance required for transfers and ambulation]: 2 assist with walker. Supervision [direct monitoring required during toileting and ADLs]: Hands on. Surveillance [continuous indirect monitoring]: Hourly rounding, room near unit station, call morris within reach, bed alarm set, sitter at bedside. Patient-specific fall prevention interventions for sensory deficits provided, if applicable: [X] N/A CPG GOAL OUTCOME EVALUATION: * Plan of Care - Shruti Lozoya RN - 01/19/2018 4:21 AM EDT Problem: Patient Care Overview Goal: Plan of Care Review Outcome: Ongoing (Interventions Implemented as Appropriate) 01/15/18 1251 01/19/18 0412 Coping/Psychosocial Plan Of Care Reviewed With -- patient Plan of Care Review Progress no change -- OUTCOME EVALUATION NOTE: OUTCOME SUMMARY: Pt admitted 09/02/17 with LLE fracture after a fall. Pt medically stable overnight.VSS. Pt denies pain, answers questions appropriately. No behavioral issues overnight. Calm and cooperative with all care. Sitter present at bedside. Will continue to monitor and will inform MD of anychanges. PLAN MOVING FORWARD: Closely monitor VS, labs, assessments. Medicate as ordered and as needed. Encourage OOB and mobility. Inform MD of any changes. INDIVIDUALIZED FALL PREVENTION INTERVENTIONS: Patient-specific fall risk factors per assessment: [current deficits]: Weakness, deconditioning Assistance [level of assistance required for transfers and ambulation]: 2 assist and FWW for OOB and for ambulation Supervision [direct monitoring required during toileting and ADLs]: Hands on if OOB for toileting, 1 assist for ADLs Surveillance [continuous indirect monitoring]: Hourly rounding, bed alarm, 1:1 sitter at bedside Patient-specific fall prevention interventions for sensory deficits provided, if applicable: [X] Yes, call morris within easy reach, side rails up x 2-3, nonslip socks on if OOB, aggressive PT CPG GOAL OUTCOME EVALUATION: * Plan of Care - Sarika Michael RN - 01/18/2018 6:01 PM EDT Problem: Patient Care Overview Goal: Interdisciplinary Rounds/Family Conf Outcome: Ongoing (Interventions Implemented as Appropriate) 01/14/18 1844 Interdisciplinary Rounds/Family Conf Participants physician;nursing;shoe caser OUTCOME EVALUATION NOTE: OUTCOME SUMMARY: AxO to time, place, and self. Pt aggressive and agitated, unable to ambulate more than stand-pivot for staff and patient safety. Disoriented to situation. VSS on room air. Pt denies pain but scheduled tylenol and bengay applied as ordered. Voiding w/o difficulty, no BM today. Sitter remains at bedside. Good PO intake. Will continue to monitor and page with any changes. PLAN MOVING FORWARD: Encourage activity when patient is cooperative and safe for himself and staff. Monitor fluid intake. Monitor Na INDIVIDUALIZED FALL PREVENTION INTERVENTIONS: Patient-specific fall risk factors per assessment: [current deficits]: Hx of falls, impulsivity, impaired mobility. Assistance [level of assistance required for transfers and ambulation]: 2 assist with walker. Supervision [direct monitoring required during toileting and ADLs]: Hands on. Surveillance [continuous indirect monitoring]: Hourly rounding, room near unit station, call morris within reach, bed alarm set, sitter at bedside. Patient-specific fall prevention interventions for sensory deficits provided, if applicable: [X] N/A CPG GOAL OUTCOME EVALUATION: * Plan of Care - Mike Estrada RN - 01/18/2018 5:12 AM EDT Problem: Patient Care Overview Goal: Plan of Care Review Outcome: Ongoing (Interventions Implemented as Appropriate) 01/15/18 1251 01/17/182042 Coping/Psychosocial Plan Of Care Reviewed With -- patient Plan of Care Review Progress no change -- OUTCOME EVALUATION NOTE: OUTCOME SUMMARY: Patient A&O to self and place, VSS, and denies any pain. Intermittently sleeping throughout shift. Remains agitated and vocal when awake. Patient incontinent of urine multiple times thorughout shift. No acute changes overnight, sitter remains at bedside, will continue to monitor. PLAN MOVING FORWARD: Continue to monitor labs, VS, reorient as needed, calming measures, placement INDIVIDUALIZED FALL PREVENTION INTERVENTIONS: Patient-specific fall risk factors per assessment: [current deficits]: Confusion, agitation, generalized weakness Assistance [level of assistance required for transfers and ambulation]: 2 assist OOB Supervision [direct monitoring required during toileting and ADLs]: Hands on Surveillance [continuous indirect monitoring]: Sitter @ bedside Goal: Fall Prevention-Safe Patient Handling Outcome: Ongoing (Interventions Implemented as Appropriate) 01/17/18 1900 01/17/18204201/18/18 0100 Restraint Interventions Safety Promotion/Fall Prevention -- -- -- Activity Activity Type -- -- activity adjusted per tolerance Activity Assistance Provided -- -- assistance, 2 people Assistive Device Utilized -- -- front-wheel walker Positioning Body Position independent -- -- Daily Care Interventions Self-Care Promotion independence encouraged -- -- [place] Fall Risk History of Falling -- 25 -- Secondary Diagnosis -- 15 -- Ambulatory Aids -- 15 -- Intravenous Therapy/Heparin/Saline Lock -- 0 -- Gait/Transferring -- 20 -- Mental Status -- 15 -- Score -- 90 -- OTHER [place] Fall Risk -- High -- 01/18/18 044 Restraint Interventions Safety Promotion/Fall Prevention activity supervised;fall prevention program maintained;nonskid shoes/slippers when out of bed Activity Activity Type -- Activity Assistance Provided -- Assistive Device Utilized -- Positioning Body Position -- Daily Care Interventions Self-Care Promotion -- [place] Fall Risk History of Falling -- Secondary Diagnosis -- Ambulatory Aids -- Intravenous Therapy/Heparin/Saline Lock -- Gait/Transferring -- Mental Status -- Score -- OTHER [place] Fall Risk -- Goal: Infection Control Outcome: Ongoing (Interventions Implemented as Appropriate) 01/17/18204201/18/18443 Coping Strategies Supportive Measures active listening utilized;verbalization of feelings encouraged;self-care encouraged -- Safety Interventions Isolation Precautions -- standard precautions maintained Infection Prevention -- rest/sleep promoted;single patient room provided * Plan of Care - Adia Clarke RN - 01/17/2018 1:21 PM EDT Problem: Patient Care Overview Goal: Plan of Care Review Outcome: Ongoing (Interventions Implemented as Appropriate) OUTCOME EVALUATION NOTE: OUTCOME SUMMARY: A+O to self and place. VSS. Pt agitated this morning, PRN seroquil given with minimal effect. Pt remained agitated and vocal throughout shift. Unable to get pt out of bed as he was uncooperative. No acute events. PLAN MOVING FORWARD: Placement INDIVIDUALIZED FALL PREVENTION INTERVENTIONS: Patient-specific fall risk factors per assessment: [current deficits]: Pt is a high fall risk due to weakness and impulsivity. Assistance [level of assistance required for transfers and ambulation]: 3-4 assist Supervision [direct monitoring required during toileting and ADLs]: Hands on Surveillance [continuous indirect monitoring]: Hourly rounding, sitter at bedside, siderails raisedX3, nonskid socks when out of bed. Patient-specific fall prevention interventions for sensory deficits provided, if applicable: [X] N/A CPG GOAL OUTCOME EVALUATION: * Plan of Care - Mady Foss RN - 01/17/2018 1:40 AM EDT Problem: Patient Care Overview Goal: Plan of Care Review Outcome: Ongoing (Interventions Implemented as Appropriate) 01/15/18 1251 01/16/182005 Coping/Psychosocial Plan Of Care Reviewed With -- patient Plan of Care Review Progress no change -- OUTCOME EVALUATION NOTE: OUTCOME SUMMARY: Pt disoriented to place and time, VSS, no c/o pain. Slept on and off overnight. This morning [id number], pt threw bed guillen across the room and urinal as well. Sitter at bedside gave pt a water bottlea short time afterwards and he threw it, which hit the sitter in the head. No acute issues or events. PLAN MOVING FORWARD: Continue to monitor. INDIVIDUALIZED FALL PREVENTION INTERVENTIONS: Patient-specific fall risk factors per assessment: [current deficits]: Generalized weakness, new environment, high fall risk Assistance [level of assistance required for transfers and ambulation]: 3 assist Supervision [direct monitoring required during toileting and ADLs]: Hands on, eyes on Surveillance [continuous indirect monitoring]: Masimo, purposeful rounding, bed alarm, 1:1 sitter Patient-specific fall prevention interventions for sensory deficits provided, if applicable: [X] No CPG GOAL OUTCOME EVALUATION: * Plan of Care - Adia Clarke RN - 01/16/2018 3:43 PM EDT Problem: Patient Care Overview Goal: Plan of Care Review Outcome: Ongoing (Interventions Implemented as Appropriate) OUTCOME EVALUATION NOTE: OUTCOME SUMMARY: A+O to self and place. VSS. Pt agitated this morning, PRN seroquil given with good effect. Pt went outside in wheelchair this afternoon. No acute events. PLAN MOVING FORWARD: Rehab and placement INDIVIDUALIZED FALL PREVENTION INTERVENTIONS: Patient-specific fall risk factors per assessment: [current deficits]: Pt is a high fall risk due to impulsivity and weakness Assistance [level of assistance required for transfers and ambulation]: 2-3 assist w walker Supervision [direct monitoring required during toileting and ADLs]: Hands on Surveillance [continuous indirect monitoring]: Hourly rounding,nonskid socks when out of bed, sitter at bedside. Patient-specific fall prevention interventions for sensory deficits provided, if applicable: [X] N/A CPG GOAL OUTCOME EVALUATION: * Plan of Care - Vandana Jean Baptiste RN - 01/16/2018 4:42 AM EDT Problem: Patient Care Overview Goal: Plan of Care Review Outcome: Ongoing (Interventions Implemented as Appropriate) 01/15/18 1251 01/15/18 2020 Coping/Psychosocial Plan Of Care Reviewed With -- patient Plan of Care Review Progress no change -- OUTCOME EVALUATION NOTE: OUTCOME SUMMARY: Pt is alert to self and place, VSS. Pt has slept for most of the night. Sitter still remains at bedside. Pt has been able to use the urinal successfully throughout shift. PLAN MOVING FORWARD: Awaiting placement INDIVIDUALIZED FALL PREVENTION INTERVENTIONS: Patient-specific fall risk factors per assessment: [current deficits]: High fall risk Assistance [level of assistance required for transfers and ambulation]: 2 assist Supervision [direct monitoring required during toileting and ADLs]: Hands on Surveillance [continuous indirect monitoring]: Hourly rounding, call morris within reach, sitter at bedside, bed left in lowest position. Patient-specific fall prevention interventions for sensory deficits provided, if applicable: [X] N/A CPG GOAL OUTCOME EVALUATION: * Plan of Care - Isabell Laureano RN - 01/15/2018 12:54 PM EDT Problem: Patient Care Overview Goal: Plan of Care Review Outcome: Ongoing (Interventions Implemented as Appropriate) 01/15/18 1251 Coping/Psychosocial Plan Of Care Reviewed With patient Plan of Care Review Progress no change OUTCOME EVALUATION NOTE: OUTCOME SUMMARY: Pt sleeping between care. Meds administered as scheduled. Continues with 1:1 observation. VSS. Continue to monitor, safety maintained. PLAN MOVING FORWARD: Continue to monitor, encourage ambulation. INDIVIDUALIZED FALL PREVENTION INTERVENTIONS: Patient-specific fall risk factors per assessment: [current deficits]: Moderately impaired, impaired vision. Assistance [level of assistance required for transfers and ambulation]: 3 or more people assist. Supervision [direct monitoring required during toileting and ADLs]: 1-2 people assist. Surveillance [continuous indirect monitoring]: Purposeful rounding. Patient-specific fall prevention interventions for sensory deficits provided, if applicable: [X] N/A CPG GOAL OUTCOME EVALUATION: Goal: Fall Prevention-Safe Patient Handling Outcome: Ongoing (Interventions Implemented as Appropriate) 01/13/18 0923 01/15/18 1235 Restraint Interventions Safety Promotion/Fall Prevention -- activity supervised;fall prevention program maintained;muscle strengthening facilitated;nonskid shoes/slippers when out of bed;safety round/check completed Activity Activity Type -- activity adjusted per tolerance;ambulated in room Activity Assistance Provided -- assistance, 3 or more people Assistive Device Utilized -- front-wheel walker Positioning Body Position -- up in chair Daily Care Interventions Self-Care Promotion independence encouraged -- [place] Fall Risk History of Falling -- 25 Secondary Diagnosis -- 15 Ambulatory Aids -- 15 Intravenous Therapy/Heparin/Saline Lock -- 0 Gait/Transferring -- 20 Mental Status -- 15 Score -- 90 OTHER [place] Fall Risk -- High Goal: Infection Control Outcome: Ongoing (Interventions Implemented as Appropriate) 01/15/18 0800 01/15/18 1235 Coping Strategies Supportive Measures active listening utilized;self-care encouraged;verbalization of feelings encouraged -- Safety Interventions Isolation Precautions -- standard precautions maintained Infection Prevention -- environmental surveillance performed;rest/sleep promoted;single patient room provided * Plan of Care - Vandana Jean Baptiste RN - 01/15/2018 4:38 AM EDT Problem: Patient Care Overview Goal: Plan of Care Review Outcome: Ongoing (Interventions Implemented as Appropriate) 01/09/18 0408 01/14/182027 Coping/Psychosocial Plan Of Care Reviewed With -- patient Plan of Care Review Progress progress toward functional goals is gradual -- OUTCOME EVALUATION NOTE: OUTCOME SUMMARY: Pt is alert to self and place, VSS. Pt had a good night, little to no yelling throughout shift. Pt was able to take all scheduled meds. No acute changes PLAN MOVING FORWARD: Awaiting placement, will continue to monitor and assess INDIVIDUALIZED FALL PREVENTION INTERVENTIONS: Patient-specific fall risk factors per assessment: [current deficits]: High fall risk Assistance [level of assistance required for transfers and ambulation]: 2 assist with walker Supervision [direct monitoring required during toileting and ADLs]: Hands on Surveillance [continuous indirect monitoring]: Hourly rounding, sitter at bedside, bed left in lowest position, non skid socks on while out of bed. Patient-specific fall prevention interventions for sensory deficits provided, if applicable: [X] N/A CPG GOAL OUTCOME EVALUATION: * Plan of Care - Kristin Smith RN - 01/14/2018 6:54 PM EDT Problem: Patient Care Overview Goal: Plan of Care Review Outcome: Ongoing (Interventions Implemented as Appropriate) 01/09/18 0408 01/14/18 1000 Coping/Psychosocial Plan Of Care Reviewed With -- patient;caregiver Plan of Care Review Progress progress toward functional goals is gradual -- OUTCOME EVALUATION NOTE: OUTCOME SUMMARY: Pt oriented to self and place only. Received all scheduled medications. Intermittently sleeping throughout the day. Able to ambulate w/ 2 assist and FWW to bedside chair. Sat in chair throughout the afternoon before returning to bed for dinner. Pt incontinent of urine x1. Able to use urinal frequently throughout the day, see I+Os. PO intake remains excellent. Intermittently yells out. Sitter remains at bedside. No other acute events to note at this time. Pt is currently in bed eating fruit. Call light within reach. Will continue to monitor and notify MD of any changes. PLAN MOVING FORWARD: Encourage increased ambulation, discharge INDIVIDUALIZED FALL PREVENTION INTERVENTIONS: Patient-specific fall risk factors per assessment: [current deficits]: LLE pain, generalized weakness, poor safety awareness Assistance [level of assistance required for transfers and ambulation]: x2 assist w/ walker Supervision [direct monitoring required during toileting and ADLs]: Hands on Surveillance [continuous indirect monitoring]: Sitter at bedside, call light within reach, purposeful rounding Patient-specific fall prevention interventions for sensory deficits provided, if applicable: [X] Yes CPG GOAL OUTCOME EVALUATION: * Plan of Care - Jolene Domínguez RN - 01/14/2018 5:09 AM EDT Problem: Patient Care Overview Goal: Plan of Care Review Outcome: Ongoing (Interventions Implemented as Appropriate) 01/09/18 0408 01/13/18 2213 Coping/Psychosocial Plan Of Care Reviewed With -- patient Plan of Care Review Progress progress toward functional goals is gradual -- OUTCOME EVALUATION NOTE: OUTCOME SUMMARY: Pt A&O x2 throughout the shift. Pt pleasant and cooperative with care. VSS, pt denied any pain.1:1 sitter remains at bedside. Pt had a good night and slept the majority of the shift. No acute events overnight. Safety maintained. PLAN MOVING FORWARD: Placement INDIVIDUALIZED FALL PREVENTION INTERVENTIONS: Patient-specific fall risk factors per assessment: [current deficits]: Impaired vision, generalizedweakness Assistance [level of assistance required for transfers and ambulation]: 2 assist Supervision [direct monitoring required during toileting and ADLs]: Hands on Surveillance [continuous indirect monitoring]: 1:1 sitter, purposeful monitoring Patient-specific fall prevention interventions for sensory deficits provided, if applicable: [X] Yes CPG GOAL OUTCOME EVALUATION: * Plan of Care - Kaela Norwood RN - 01/13/2018 5:02 PM EDT Problem: Patient Care Overview Goal: Plan of Care Review Outcome: Ongoing (Interventions Implemented as Appropriate) 01/09/18 0408 01/13/18 0923 Coping/Psychosocial Plan Of Care Reviewed With -- patient Plan of Care Review Progress progress toward functional goals is gradual -- OUTCOME EVALUATION NOTE: OUTCOME SUMMARY: Pt alert this shift. Mostly pleasant with care. Only a few episodes of yelling. Had an XLL bowel movement on the BSC. DH sitter and agency sitter remain at the bedside. Pt listened to Chaz dela cruz for most of the shift. VSS. Will continue to monitor. PLAN MOVING FORWARD: Awaiting placement. INDIVIDUALIZED FALL PREVENTION INTERVENTIONS: Patient-specific fall risk factors per assessment: [current deficits]: Generalized weakness. Assistance [level of assistance required for transfers and ambulation]: x2 assist. Supervision [direct monitoring required during toileting and ADLs]: Eyes and hands on. Surveillance [continuous indirect monitoring]: No cords. Pt is not safe. Continue with sitter and purposeful rounding. Patient-specific fall prevention interventions for sensory deficits provided, if applicable: [X] Yes CPG GOAL OUTCOME EVALUATION: * Plan of Care - Jolene Domínguez RN - 01/13/2018 5:11 AM EDT Problem: Patient Care Overview Goal: Plan of Care Review Outcome: Ongoing (Interventions Implemented as Appropriate) 01/09/18 0408 01/12/18 2139 Coping/Psychosocial Plan Of Care Reviewed With -- patient Plan of Care Review Progress progress toward functional goals is gradual -- OUTCOME EVALUATION NOTE: OUTCOME SUMMARY: Pt alert and oriented to self, place, and was able to state sisters name. Pt cooperative w/ care. VSS on RA. 1:1 sitter remains at bedside. Pt slept overnight. No acute events. Safety maintained. PLAN MOVING FORWARD: Encourage mobility & independence w/ ADLs Awaiting placement INDIVIDUALIZED FALL PREVENTION INTERVENTIONS: Patient-specific fall risk factors per assessment: [current deficits]: Generalized weakness & blindness Assistance [level of assistance required for transfers and ambulation]: 2 assist Supervision [direct monitoring required during toileting and ADLs]: Hands on Surveillance [continuous indirect monitoring]: 1:1 sitter @ bedside Patient-specific fall prevention interventions for sensory deficits provided, if applicable: [X] Yes CPG GOAL OUTCOME EVALUATION: * Plan of Care - Kaela Norwood RN - 01/12/2018 5:57 PM EDT Problem: Patient Care Overview Goal: Plan of Care Review Outcome: Ongoing (Interventions Implemented as Appropriate) 01/09/18 0408 01/12/18 1000 Coping/Psychosocial Plan Of Care Reviewed With -- patient Plan of Care Review Progress progress toward functional goals is gradual -- OUTCOME EVALUATION NOTE: OUTCOME SUMMARY: Pt was A&Ox4 this shift. Very verbal at times, also self harms at times. Enjoys listening to the music and being read to. Incontinent of large amounts of urine throughout the shift. Has a great appetite. Vitals stable on RA. Will continue to monitor. PLAN MOVING FORWARD: Continue to monitor pain. Awaiting placement. INDIVIDUALIZED FALL PREVENTION INTERVENTIONS: Patient-specific fall risk factors per assessment: [current deficits]: Generalized weakness and blindness. Assistance [level of assistance required for transfers and ambulation]: x2 assist. Supervision [direct monitoring required during toileting and ADLs]: Eyes and hands on. Surveillance [continuous indirect monitoring]: Sitter at bedside at all times. Patient-specific fall prevention interventions for sensory deficits provided, if applicable: [X] Yes CPG GOAL OUTCOME EVALUATION: * Plan of Care - Mady Recio RN - 01/12/2018 3:39 AM EDT Problem: Patient Care Overview Goal: Plan of Care Review Outcome: Ongoing (Interventions Implemented as Appropriate) 01/09/18 0408 01/11/182035 Coping/Psychosocial Plan Of Care Reviewed With -- patient Plan of Care Review Progress progress toward functional goals is gradual -- OUTCOME EVALUATION NOTE: OUTCOME SUMMARY: Pt was awake, agitated yet cooperative throughout shift. VSS. Alert to self and place; disoriented to time and situation. Assessment as documented. PRN seroquel and ibuprofen given per pt request. Noacute events. Will continue to monitor. PLAN MOVING FORWARD: Placement INDIVIDUALIZED FALL PREVENTION INTERVENTIONS: Patient-specific fall risk factors per assessment: [current deficits]: Generalized weakness-moderately impaired, cognitive impairment Assistance [level of assistance required for transfers and ambulation]: 2 assist with walker Supervision [direct monitoring required during toileting and ADLs]: Hands and eyes on Surveillance [continuous indirect monitoring]: Purposeful rounding, sitter at bedside Patient-specific fall prevention interventions for sensory deficits provided, if applicable: [X] Yes CPG GOAL OUTCOME EVALUATION: * Plan of Care - Vandana Jean Baptiste RN - 01/11/2018 5:58 PM EDT Problem: Patient Care Overview Goal: Plan of Care Review 01/09/18 0408 01/11/18 0802 Coping/Psychosocial Plan Of Care Reviewed With -- patient Plan of Care Review Progress progress toward functional goals is gradual -- OUTCOME EVALUATION NOTE: OUTCOME SUMMARY: Pt alert to self, VSS, HR tachy at times. Pt was yelling periodically throughout the day. Pt was incontinent of both urin and stool. Pt refusing to walk to the bathroom at this time. Pt was able to take all scheduled meds with water. No acute changes. PLAN MOVING FORWARD: Continue to monitor and assess, Rehab with 2 assist INDIVIDUALIZED FALL PREVENTION INTERVENTIONS: Patient-specific fall risk factors per assessment: [current deficits]: High fall risk Assistance [level of assistance required for transfers and ambulation]: 2 assist with walker Supervision [direct monitoring required during toileting and ADLs]: Hands on Surveillance [continuous indirect monitoring]: Hourly rounding, call morris within reach, bed left inlowest position, sitter at bedside Patient-specific fall prevention interventions for sensory deficits provided, if applicable: [X] N/A CPG GOAL OUTCOME EVALUATION: * Plan of Care - Vandana Jean Baptiste RN - 01/10/2018 4:27 PM EDT Problem: Patient Care Overview Goal: Plan of Care Review Outcome: Ongoing (Interventions Implemented as Appropriate) 01/09/18 0408 01/10/18 0945 Coping/Psychosocial Plan Of Care Reviewed With -- patient Plan of Care Review Progress progress toward functional goals is gradual -- OUTCOME EVALUATION NOTE: OUTCOME SUMMARY: Pt is alert to self, VSS, HR tachy at times. Pt has been sleeping periodically throughout the day. We attempted to walk to the bathroom but had to settle for the bedside commode half way. Continue 1:1 sitter. No acute events PLAN MOVING FORWARD: Continue to monitor and assess. Promote ambulation INDIVIDUALIZED FALL PREVENTION INTERVENTIONS: Patient-specific fall risk factors per assessment: [current deficits]: High fall risk Assistance [level of assistance required for transfers and ambulation]: 2 assist with walker Supervision [direct monitoring required during toileting and ADLs]: Hands on Surveillance [continuous indirect monitoring]: Hourly rounding, call morris within reach, sitter at bedside, non skid socks on Patient-specific fall prevention interventions for sensory deficits provided, if applicable: [X] N/A CPG GOAL OUTCOME EVALUATION: * Plan of Care - Emili Gavin RN - 01/10/2018 6:59 AM EDT OUTCOME EVALUATION NOTE: ?? OUTCOME SUMMARY:Miguel Angel Mason is a 27 y.o. male pt alert to self w/ VSS. Pt had a good night; was cooperative with assessment, ADLs, and taking medications.Pt was able to take all scheduled medications. Sitter remains at bedside. No acute changes. ?? PLAN MOVING FORWARD: ?? Continue to monitor and assess, sitter at bedside. ?? INDIVIDUALIZED FALL PREVENTION INTERVENTIONS: ?? Patient-specific fall risk factors per assessment: [current deficits]: High fall risk :Blind, General weakness, impulsive. ?? Assistance [level of assistance required for transfers and ambulation]: 2 assist with walker ?? Supervision [direct monitoring required during toileting and ADLs]: Hands on ?? Surveillance [continuous indirect monitoring]: Hourly rounding, call morris within reach, bed left inlowest position, sitter at bedside ?? Patient-specific fall prevention interventions for sensory deficits provided, if applicable: [X] N/A ? CPG GOAL OUTCOME EVALUATION: Ongoing ?? Problem: Skin Integrity Impairment, Risk/Actual (Adult) Goal: Identify Related Risk Factors and Signs and Symptoms Related risk factors and signs and symptoms are identified upon initiation of Human Response Clinical Practice Guideline (CPG) Outcome: Ongoing (Interventions Implemented as Appropriate) 01/10/18 0503 Skin Integrity Impairment, Risk/Actual Skin Integrity Impairment, Risk/Actual: Related Risk Factors cognitive impairment;fluid/nutrition status Problem: Thought Process Alteration (Adult) Goal: Improved Thought Process Patient will demonstrate the desired outcomes by discharge/transition of care. Outcome: Ongoing (Interventions Implemented as Appropriate) 01/10/18 0503 Thought Process Alteration (Adult) Improved Thought Process making progress toward outcome Problem: Fluid Volume Excess (Adult,Obstetrics,Pediatric) Goal: Stable Weight Patient will demonstrate the desired outcomes by discharge/transition of care. Outcome: Ongoing (Interventions Implemented as Appropriate) 01/10/18 0503 Fluid Volume Excess (Adult,Obstetrics,Pediatric) Stable Weight making progress toward outcome Goal: Balanced Intake/Output Patient will demonstrate the desired outcomes by discharge/transition of care. Outcome: Ongoing (Interventions Implemented as Appropriate) 01/10/18 0503 Fluid Volume Excess (Adult,Obstetrics,Pediatric) Balanced Intake/Output making progress toward outcome * Plan of Care - Vandana Jean Baptiste RN - 01/09/2018 6:12 PM EDT Problem: Patient Care Overview Goal: Plan of Care Review Outcome: Ongoing (Interventions Implemented as Appropriate) OUTCOME EVALUATION NOTE: OUTCOME SUMMARY: Pt alert to self, VSS. Pt had a good day overall. Pt was able to take all scheduled medications. Noacute changes. PLAN MOVING FORWARD: Continue to monitor and assess, sitter at bedside. INDIVIDUALIZED FALL PREVENTION INTERVENTIONS: Patient-specific fall risk factors per assessment: [current deficits]: High fall risk Assistance [level of assistance required for transfers and ambulation]: 2 assist with walker Supervision [direct monitoring required during toileting and ADLs]: Hands on Surveillance [continuous indirect monitoring]: Hourly rounding, call morris within reach, bed left inlowest position, sitter at bedside Patient-specific fall prevention interventions for sensory deficits provided, if applicable: [X] N/A CPG GOAL OUTCOME EVALUATION: * Plan of Care - Emy Vásquez RN - 01/09/2018 7:34 AM EDT Problem: Patient Care Overview Goal: Plan of Care Review Outcome: Ongoing (Interventions Implemented as Appropriate) 01/09/18 0408 Coping/Psychosocial Plan Of Care Reviewed With patient Plan of Care Review Progress progress toward functional goals is gradual OUTCOME EVALUATION NOTE: OUTCOME SUMMARY: Alert/agitated for good portion of shift. Disoriented to place, time & situation. Refused VS when attempted due to agitation. Does not tolerate Masimo. Additional 1x dose trazadone given for increased agitation w/ +effect. Agitation also observed to have subsided after large BM, pt observed to be sleeping thereafter. VS able to be obtained early this a.m, see DocFlow. No complaints of pain. No acute distress. Sitter remains at bedside, safety maintained. Will continue to monitor & notify MD of any changes. PLAN MOVING FORWARD: Monitor labs Promote mobility - ambulate pt as tolerated Discharge planning pending placement INDIVIDUALIZED FALL PREVENTION INTERVENTIONS: Patient-specific fall risk factors per assessment: [current deficits]: High fall risk - generalizedweakness, history of falls, disorientation, poor safety judgement, medical equipment Assistance [level of assistance required for transfers and ambulation]: 2A Supervision [direct monitoring required during toileting and ADLs]: Hands on Surveillance [continuous indirect monitoring]: Sitter at bedside, purposeful rounding, room near unit station Patient-specific fall prevention interventions for sensory deficits provided, if applicable: [X] Yes CPG GOAL OUTCOME EVALUATION: * Plan of Care - Mavis Byers RN - 01/08/2018 5:45 PM EDT Problem: Patient Care Overview Goal: Plan of Care Review Outcome: Ongoing (Interventions Implemented as Appropriate) 01/07/188 01/08/18 08 Coping/Psychosocial Plan Of Care Reviewed With -- patient Plan of Care Review Progress progress toward functional goals is gradual -- OUTCOME EVALUATION NOTE: OUTCOME SUMMARY: Pt is alert and oriented to self. VSS. Physical assessment as documented. Able to voice needs. Sitter and caregiver remaining at bedside. Miguel Angel had a good day. No yelling throughout the day. Voiding on own. No BM today, but is passing gas. All medications taken. No acute events, will continue PLAN MOVING FORWARD: Encourage ambulation. Monitor I &O. Assess skin. Monitor neurological status INDIVIDUALIZED FALL PREVENTION INTERVENTIONS: Patient-specific fall risk factors per assessment: [current deficits]: Diagnosis, history of falls,confusion Assistance [level of assistance required for transfers and ambulation]: 1-2 assist, with wheelchair Supervision [direct monitoring required during toileting and ADLs]: Hands on Surveillance [continuous indirect monitoring]: Bedside sitter Patient-specific fall prevention interventions for sensory deficits provided, if applicable: [X] N/A CPG GOAL OUTCOME EVALUATION: * Plan of Care - Emerald Mccollum RN - 01/08/2018 5:02 AM EDT Problem: Patient Care Overview Goal: Plan of Care Review Outcome: Ongoing (Interventions Implemented as Appropriate) 01/07/18171701/07/182021 Coping/Psychosocial Plan Of Care Reviewed With -- patient Plan of Care Review Progress progress toward functional goals is gradual -- OUTCOME EVALUATION NOTE: OUTCOME SUMMARY: Pt remains free from falls/injuries this shift, bed in low position. PRN Ibuprofen administered x1 at this time, pt stating yes when asked if in pain. Pt occasionally yelling out. Episodes of urinary incontinence- incontinence care provided as necessary. Sitter at bedside. Will continue to monitor. PLAN MOVING FORWARD: Continue to monitor, encourage activity, work towards discharge INDIVIDUALIZED FALL PREVENTION INTERVENTIONS: Patient-specific fall risk factors per assessment: [current deficits]: Generalized weakness, confusion Assistance [level of assistance required for transfers and ambulation]: 2A w/ wheelchair Supervision [direct monitoring required during toileting and ADLs]: Eyes on/hands on Surveillance [continuous indirect monitoring]: Room near unit station, purposeful rounding, bedsidereport Patient-specific fall prevention interventions for sensory deficits provided, if applicable: NA CPG GOAL OUTCOME EVALUATION: * Plan of Care - Hafsa Levine RN - 01/07/2018 5:35 PM EDT Problem: Patient Care Overview Goal: Plan of Care Review Outcome: Ongoing (Interventions Implemented as Appropriate) 01/07/18 1718 Coping/Psychosocial Plan Of Care Reviewed With patient Plan of Care Review Progress progress toward functional goals is gradual OUTCOME EVALUATION NOTE: OUTCOME SUMMARY: Pt slept off and on this am, woke pt for am meds, screaming intermittently. In afternoon pt was notfollowing directions, not redirectable and became agitated and kicked foot board of bed and staff. Pt medicated with prn seroquel with no effect. Pt's agitation escalated, pt trying to get out of bedand was screaming. Dr at bedside. No new orders noted. PLAN MOVING FORWARD: 1:1 sitter, monitor for increased agitation and notify Dr if noted. Continue to reorient. Pain management. INDIVIDUALIZED FALL PREVENTION INTERVENTIONS: Patient-specific fall risk factors per assessment: [current deficits]: cognitive impairment, poor safety awareness Assistance [level of assistance required for transfers and ambulation]: 2-3 person assist Supervision [direct monitoring required during toileting and ADLs]: Hands on, eyes on, 1:1 sitter Surveillance [continuous indirect monitoring]: Purposeful rounding, bed alarm Patient-specific fall prevention interventions for sensory deficits provided, if applicable: yes CPG GOAL OUTCOME EVALUATION: Goal: Individualization & Mutuality Outcome: Ongoing (Interventions Implemented as Appropriate) 10/17/17 1745 11/05/17 0354 11/18/17 0546 Individualization Patient Specific Preferences -- -- -- Patient Specific Goals -- maintain safety plan, limit interuptions -- Patient Specific Interventions -- -- -- Mutuality/Individual Preferences What Anxieties, Fears or Concerns Do You Have About Your Health or Care? ISHAAN -- -- What Questions Do You Have About Your Health or Care? ISHAAN -- -- What Information Would Help Us Give You More Personalized Care? -- -- Sister, Bettina, is his guardian 01/01/18 030 Individualization Patient Specific Preferences sitter at bedside, enjoys icecream and popsicles Patient Specific Goals -- Patient Specific Interventions cluster care, siter at bedside Mutuality/Individual Preferences What Anxieties, Fears or Concerns Do You Have About Your Health or Care? -- What Questions Do You Have About Your Health or Care? -- What Information Would Help Us Give You More Personalized Care? -- Goal: Fall Prevention-Safe Patient Handling Outcome: Ongoing (Interventions Implemented as Appropriate) 01/07/1837 01/07/18 1000 01/07/18 1600 Restraint Interventions Safety Promotion/Fall Prevention -- -- safety round/check completed Activity Activity Type -- activity adjusted per tolerance -- Activity Assistance Provided -- assistance, 2 people -- Assistive Device Utilized -- wheelchair -- Positioning Body Position -- -- independent Daily Care Interventions Self-Care Promotion -- independence encouraged;BADL personal objects within reach;BADL personal routines maintained;meal setup provided;safe use of adaptive equipment encouraged -- [place] Fall Risk History of Falling 25 -- -- Secondary Diagnosis 15 -- -- Ambulatory Aids 15 -- -- Intravenous Therapy/Heparin/Saline Lock 0 -- -- Gait/Transferring 20 -- -- Mental Status 15 -- -- Score 90 -- -- OTHER [place] Fall Risk High -- -- Goal: Infection Control Outcome: Ongoing (Interventions Implemented as Appropriate) 01/07/1837 01/07/18 1600 Coping Strategies Supportive Measures active listening utilized;verbalization of feelings encouraged;goal setting facilitated;relaxation techniques promoted;positive reinforcement provided -- Safety Interventions Isolation Precautions -- standard precautions maintained Infection Prevention -- single patient room provided Goal: Discharge Needs Assessment Outcome: Ongoing (Interventions Implemented as Appropriate) 01/05/18 2216 Discharge Needs Assessment Concerns To Be Addressed basic needs concerns;discharge planning concerns;cognitive/perceptual concerns;care coordination/care conferences Readmission Within The Last 30 Days no previous admission in last 30 days Provider Choice List(s) Given yes Equipment Needed After Discharge wheelchair;walker, rolling Discharge Facility/Level Of Care Needs assisted living facility;nursing facility, skilled;nursing facility, basic Current Discharge Risk chronically ill;dependent with mobility/activities of daily living;cognitively impaired;physical impairment Discharge Disposition still a patient Current Health Outpatient/Agency/Support Group Needs assisted living facility (specify);nursing home (specify) Anticipated Changes Related to Illness none Living Environment Transportation Available agency transportation;van, wheelchair accessible;ambulance Activity/Self Care Review of Systems Equipment Currently Used at Home none * Plan of Care - Denisse Lebron RN - 01/07/2018 3:06 AM EDT Problem: Patient Care Overview Goal: Plan of Care Review Outcome: Ongoing (Interventions Implemented as Appropriate) 01/05/18 2218 01/06/18 2100 Coping/Psychosocial Plan Of Care Reviewed With -- patient Plan of Care Review Progress no change -- OUTCOME EVALUATION NOTE: OUTCOME SUMMARY: Pt was restless and calling out frequently in the beginning of the night. Staff talked with pt and offered to go to the bathroom multiple times. Pt received scheduled meds, however did not require any prn's. Pt was able to fall asleep after a bit and appeared to be comfortable. V/sstable. Sitter remained at bedside. Safety maintained. Will continue to monitor. PLAN MOVING FORWARD: Rehab, preparing for discharge INDIVIDUALIZED FALL PREVENTION INTERVENTIONS: Patient-specific fall risk factors per assessment: [current deficits]: IV sites, high falls risk, disorientation Assistance [level of assistance required for transfers and ambulation]: 2-3 assist Supervision [direct monitoring required during toileting and ADLs]: Hands on Surveillance [continuous indirect monitoring]: Purposeful rounding, room near nurses station Patient-specific fall prevention interventions for sensory deficits provided, if applicable: [X] Yes * Plan of Care - Sarika Michael RN - 01/06/2018 4:48 PM EDT Problem: Patient Care Overview Goal: Interdisciplinary Rounds/Family Conf Outcome: Ongoing (Interventions Implemented as Appropriate) 01/05/182214 Interdisciplinary Rounds/Family Conf Participants shoe caser;dietitian/nutrition services;nursing;physician;patient;family;social work/services OUTCOME EVALUATION NOTE: OUTCOME SUMMARY: AxO to self and place. Disoriented to time and situation. VSS on room air. No c/o pain although continue to administer scheduled tylenol. Pt continues to be intermittently restless and agitated but does well with quiet instructions and redirection. Ambulating small distances with 2 assist and walker. Out of room around unit today in wheelchair. Great PO intake, continues to drink adequate amount of fluids. Sitter and caregiver remain at bedside. Incontinence care provided but pt also continent of urine x2 today as well, no BM today. Will continue to monitor and page with any changes. PLAN MOVING FORWARD: Monitor labs. Continue to provide emotional support and redirection. Await placement. Encourage mobility. INDIVIDUALIZED FALL PREVENTION INTERVENTIONS: Patient-specific fall risk factors per assessment: [current deficits]: Hx of falls, impaired mobility. Assistance [level of assistance required for transfers and ambulation]: 2 assist with walker. Supervision [direct monitoring required during toileting and ADLs]: Hands on. Surveillance [continuous indirect monitoring]: Hourly rounding, room near unit station, call morris within reach, bed alarm set, sitter at bedside. Patient-specific fall prevention interventions for sensory deficits provided, if applicable: [X] N/A CPG GOAL OUTCOME EVALUATION: * Plan of Care - Denisse Lebron RN - 01/06/2018 3:38 AM EDT Problem: Fluid Volume Excess (Adult,Obstetrics,Pediatric) Goal: Balanced Intake/Output Patient will demonstrate the desired outcomes by discharge/transition of care. Outcome: Ongoing (Interventions Implemented as Appropriate) 01/05/182214 Fluid Volume Excess (Adult,Obstetrics,Pediatric) Balanced Intake/Output making progress toward outcome OUTCOME EVALUATION NOTE: OUTCOME SUMMARY: Pt calm and cooperative with care. Pt denied pain or any discomfort. Pt only had one episode of calling out and yelling. Pt oriented to both person and place. Pt slept in between care. Sitter remained at bedside. V/s stable. Will continue to monitor. PLAN MOVING FORWARD: Rehab, preparing for discharge INDIVIDUALIZED FALL PREVENTION INTERVENTIONS: Patient-specific fall risk factors per assessment: [current deficits]: IV sites, high falls risk, impulsive Assistance [level of assistance required for transfers and ambulation]: 2 assist Supervision [direct monitoring required during toileting and ADLs]: Hands on Surveillance [continuous indirect monitoring]: Purposeful rounding, room near nurses station Patient-specific fall prevention interventions for sensory deficits provided, if applicable: [X] Yes * Plan of Care - Carolin Bella RN - 01/05/2018 10:26 PM EDT Problem: Patient Care Overview Goal: Plan of Care Review Outcome: Ongoing (Interventions Implemented as Appropriate) 01/05/18 3757 Coping/Psychosocial Plan Of Care Reviewed With patient;caregiver;friend Plan of Care Review Progress no change OUTCOME EVALUATION NOTE: OUTCOME SUMMARY: Patient alert and oriented to person and place but unable to recall the correct situation or date. When asked if he has any pain he has consistently said no however, this afternoon he did verbalizepain in his left knee. PRN Ibuprofen given for a medium amount of pain, passive range of motion and massage with lotion performed by [facility]. We have been trying to increase length of ambulation however, due to behavior patient has only been safe to stand-pivot from the bed to wheelchair/commode. Patient did sit out of bed in the wheelchair, wheeled himself around the unit multiple times, went outside with the [facility], and nursing attempted scheduled toileting. Patient did not have a bowel movement today but last bowel movement was recorded on 01/04 and night nurse aware. The patient was incontinent of urine once this morning but has otherwise been continent in the urinal. The patient was very lethargic this morning, requiring continuous stimulation to remain awake. His sodium was increased at 151 with morning labs as well. Concern with lethargy was verbalized to medicine and endocrine MDs. Medicine MD reported patient has had intermittent periods of lethargy like this throughout his hospital stay. As the morning went on, patient became more awake and alert. His mood/agitation was baseline until early afternoon when he became increasingly more agitated/aggressiveand became combative with staff. He was given his PRN Seroquel, nursing transferred patient back [facility] bed, and we were able to deescalate the situation. Patient has remained more compliant, less fela tated, and appropriate since this episode. Patient did well consuming liquids today and sodium was rechecked at 1800 and 146. Per notes/MDs, patient's dose of DDVAP would be increased if sodium recheck greater than 145. No new orders written thus far. PLAN MOVING FORWARD: Nursing will continue to promote proper sleep/wake cycle, follow care plan/daily routine, promote/increase activity if it is safe to do so, and patient will be discharged to a long-term care facilityonce medically ready. INDIVIDUALIZED FALL PREVENTION INTERVENTIONS: Patient-specific fall risk factors per assessment: [current deficits]: Patient denies any numbness or tingling in his extremities. He has reported/displayed discomfort in his right knee but there does not appear to be any swelling or obvious deformities. Assistance [level of assistance required for transfers and ambulation]: Patient is a stand-pivot from the bed to commode or wheelchair. He requires a 2-person assist and use of the front-wheel walker. Supervision [direct monitoring required during toileting and ADLs]: Patient requires hands on supervision at this time. Surveillance [continuous indirect monitoring]: Patient's bed and chair alarm do not remain on because he has a sitter at the bedside 27/01. He also receives hourly rounding by nursing staff. Patient-specific fall prevention interventions for sensory deficits provided, if applicable: [X] Yes. CPG GOAL OUTCOME EVALUATION: * Plan of Care - Denisse Lebron RN - 01/05/2018 4:14 AM EDT Problem: Patient Care Overview Goal: Plan of Care Review Outcome: Ongoing (Interventions Implemented as Appropriate) 12/31/17 0359 01/04/181999 Coping/Psychosocial Plan Of Care Reviewed With -- patient Plan of Care Review Progress no change -- OUTCOME EVALUATION NOTE: OUTCOME SUMMARY: Pt only oriented to self. In the beginning of the night pt appeared very restless and frequently calling out. Pt offered to go to the bathroom intermittently during the night. Pt didmultiple pulls ups using the trapeze bar above the bed which he seemed to enjoy. Admin prn Seroquelper orders with good affect. Pt slept in between care. Sitter remained at bedside. V/S stable. Safety maintained. Will continue to monitor. PLAN MOVING FORWARD: Rehab, preparing for discharge INDIVIDUALIZED FALL PREVENTION INTERVENTIONS: Patient-specific fall risk factors per assessment: [current deficits]: IV sites, disorientation, high falls risk Assistance [level of assistance required for transfers and ambulation]: 2 assist Supervision [direct monitoring required during toileting and ADLs]: Hands on Surveillance [continuous indirect monitoring]: Purposeful rounding, room near nurses station Patient-specific fall prevention interventions for sensory deficits provided, if applicable: [X] Yes * Plan of Care - Nano Claros RN - 01/04/2018 6:38 PM EDT Problem: Patient Care Overview Goal: Plan of Care Review Outcome: Ongoing (Interventions Implemented as Appropriate) 01/04/18 1832 Coping/Psychosocial Plan Of Care Reviewed With patient OUTCOME EVALUATION NOTE: OUTCOME SUMMARY: Pt sleeping until late a.m. Loudly yelling for much of the afternoon. Unwilling to walk around unitbut able to be pushed around it in a wheelchair. Appetite good. Drank approximately 2 liters of water during late afternoon. PLAN MOVING FORWARD: Continue as planned. INDIVIDUALIZED FALL PREVENTION INTERVENTIONS: Patient-specific fall risk factors per assessment: [current deficits]: Unsteady on feet, uncooperative at times. Assistance [level of assistance required for transfers and ambulation]: One to two assist, walker or wheelchair. Supervision [direct monitoring required during toileting and ADLs]: Sitter. Surveillance [continuous indirect monitoring]: Masimo Patient-specific fall prevention interventions for sensory deficits provided, if applicable: [X] Yes CPG GOAL OUTCOME EVALUATION: * Plan of Care - Rony De La Fuente RN - 01/04/2018 2:16 AM EDT Problem: Patient Care Overview Goal: Plan of Care Review Outcome: Ongoing (Interventions Implemented as Appropriate) 12/31/17 0359 01/03/18 6295 Coping/Psychosocial Plan Of Care Reviewed With -- patient Plan of Care Review Progress no change -- OUTCOME EVALUATION NOTE: OUTCOME SUMMARY: Pt agitated and restless overnight, uncooperative for most activities and occasionally combative. PRN Seroquel given with no effect. Attempting for q4 labs, difficult to keep on schedule. Desmopressin restarted at lower dose. Sitter continued. Pt assisted up to commode several times overnight, when attempting to ambulate pt screaming in pain. Ibuprofen given with minimal relief. PLAN MOVING FORWARD: q4 labs, monitor I/O, INDIVIDUALIZED FALL PREVENTION INTERVENTIONS: Patient-specific fall risk factors per assessment: [current deficits]: Uncooperative, cognitive limitations, Assistance [level of assistance required for transfers and ambulation]: 2a walker Supervision [direct monitoring required during toileting and ADLs]: Hands on Surveillance [continuous indirect monitoring]: sitter Patient-specific fall prevention interventions for sensory deficits provided, if applicable: [X] Yes CPG GOAL OUTCOME EVALUATION: Goal: Individualization & Mutuality Outcome: Ongoing (Interventions Implemented as Appropriate) 10/17/17 1745 11/05/17 0354 11/18/17 0546 Individualization Patient Specific Preferences -- -- -- Patient Specific Goals -- maintain safety plan, limit interuptions -- Patient Specific Interventions -- -- -- Mutuality/Individual Preferences What Anxieties, Fears or Concerns Do You Have About Your Health or Care? ISHAAN -- -- What Questions Do You Have About Your Health or Care? ISHAAN -- -- What Information Would Help Us Give You More Personalized Care? -- -- Sister, Bettina, is his guardian 01/01/18 0305 Individualization Patient Specific Preferences sitter at bedside, enjoys icecream and popsicles Patient Specific Goals -- Patient Specific Interventions cluster care, siter at bedside Mutuality/Individual Preferences What Anxieties, Fears or Concerns Do You Have About Your Health or Care? -- What Questions Do You Have About Your Health or Care? -- What Information Would Help Us Give You More Personalized Care? -- Goal: Fall Prevention-Safe Patient Handling Outcome: Ongoing (Interventions Implemented as Appropriate) 01/01/18 0901/03/18 1000 01/03/18 2145 Restraint Interventions Safety Promotion/Fall Prevention -- -- activity supervised;muscle strengthening facilitated;safety round/check completed;toileting scheduled;nonskid shoes/slippers when out of bed Activity Activity Type -- stand at bedside -- Activity Assistance Provided -- assistance, 2 people -- Assistive Device Utilized -- none -- Positioning Body Position -- -- independent Daily Care Interventions Self-Care Promotion independence encouraged -- -- [place] Fall Risk History of Falling -- -- 25 Secondary Diagnosis -- -- 15 Ambulatory Aids -- -- 15 Intravenous Therapy/Heparin/Saline Lock -- -- 0 Gait/Transferring -- -- 20 Mental Status -- -- 0 Score -- -- 75 OTHER [place] Fall Risk -- -- High Goal: Infection Control Outcome: Ongoing (Interventions Implemented as Appropriate) 01/03/1881401/03/182144 Coping Strategies Supportive Measures active listening utilized;decision-making supported;positive reinforcement provided;problem solving facilitated;self-care encouraged;relaxation techniques promoted;self-reflectionpromoted;self- responsibility promoted;verbalization of feelings encouraged -- Safety Interventions Isolation Precautions -- standard precautions maintained Infection Prevention -- environmental surveillance performed;rest/sleep promoted;single patient room provided * Plan of Care - Mavis Richardson RN - 01/03/2018 3:14 PM EDT Problem: Patient Care Overview Goal: Plan of Care Review Outcome: Ongoing (Interventions Implemented as Appropriate) 12/31/17 03501/03/18814 Coping/Psychosocial Plan Of Care Reviewed With -- patient Plan of Care Review Progress no change -- OUTCOME EVALUATION NOTE: OUTCOME SUMMARY: Assessment done and meds given per order. Sitter at bedside. Sodium in AM check was 145 and afternoon check was 139. As a result, the MD changed the pt.'s desmopressin back to 0.05mg. Pt. Ambulated in room and went outside for a little while with staff. Vitals stable. No events. Safety maintained. 1700 electrolyte panel needing to be drawn still to monitor sodium (however, Pt. Refusing to be sticked at this time). Phlebotomy tried to get blood 2x so far. Phleb will be paged again to try and see if pt. Compliant. Endocrinology called to see if lab drawn and RN explained situation. Will continue to try and get blood drawn. PLAN MOVING FORWARD: Sodium monitoring/ ambulation INDIVIDUALIZED FALL PREVENTION INTERVENTIONS: Patient-specific fall risk factors per assessment: [current deficits]: High falls risk, L acetabular fracture, L sided weakness Assistance [level of assistance required for transfers and ambulation]: 2 person assist with walker Supervision [direct monitoring required during toileting and ADLs]: Hands on Surveillance [continuous indirect monitoring]: Purposeful rounding, call morris in reach, sitter at bedside Patient-specific fall prevention interventions for sensory deficits provided, if applicable: [X] N/A CPG GOAL OUTCOME EVALUATION: * Plan of Care - Rony De La Fuente RN - 01/03/2018 5:37 AM EDT Problem: Patient Care Overview Goal: Plan of Care Review Outcome: Ongoing (Interventions Implemented as Appropriate) 12/31/17 0359 01/02/182103 Coping/Psychosocial Plan Of Care Reviewed With -- patient Plan of Care Review Progress no change -- OUTCOME EVALUATION NOTE: OUTCOME SUMMARY: Pt resting comfortably for most of the night before becoming restless in AM. Sitter continued. Ambulation encouraged and assitance provided when pt cooperative. PLAN MOVING FORWARD: Encourage mobility INDIVIDUALIZED FALL PREVENTION INTERVENTIONS: Patient-specific fall risk factors per assessment: [current deficits]: gen weakness, cognitive limitiations Assistance [level of assistance required for transfers and ambulation]: 2a Supervision [direct monitoring required during toileting and ADLs]: Hands on Surveillance [continuous indirect monitoring]: sitter Patient-specific fall prevention interventions for sensory deficits provided, if applicable: [X] Yes CPG GOAL OUTCOME EVALUATION: Goal: Individualization & Mutuality Outcome: Ongoing (Interventions Implemented as Appropriate) 10/17/17 1745 11/05/17 0354 11/18/17 0546 Individualization Patient Specific Preferences -- -- -- Patient Specific Goals -- maintain safety plan, limit interuptions -- Patient Specific Interventions -- -- -- Mutuality/Individual Preferences What Anxieties, Fears or Concerns Do You Have About Your Health or Care? ISHAAN -- -- What Questions Do You Have About Your Health or Care? ISHAAN -- -- What Information Would Help Us Give You More Personalized Care? -- -- Sister, Bettina, is his guardian 01/01/18 0305 Individualization Patient Specific Preferences sitter at bedside, enjoys icecream and popsicles Patient Specific Goals -- Patient Specific Interventions cluster care, siter at bedside Mutuality/Individual Preferences What Anxieties, Fears or Concerns Do You Have About Your Health or Care? -- What Questions Do You Have About Your Health or Care? -- What Information Would Help Us Give You More Personalized Care? -- Goal: Fall Prevention-Safe Patient Handling Outcome: Ongoing (Interventions Implemented as Appropriate) 01/01/18 0900 01/02/18 1603 01/02/18 2104 Restraint Interventions Safety Promotion/Fall Prevention -- -- -- Activity Activity Type -- ambulated in room;ambulated in quinn;activity encouraged -- Activity Assistance Provided -- assistance, 2 people -- Assistive Device Utilized -- standard walker;other (see comments) (followed with a chair) -- Positioning Body Position -- -- -- Daily Care Interventions Self-Care Promotion independence encouraged -- -- [place] Fall Risk History of Falling -- -- 25 Secondary Diagnosis -- -- 15 Ambulatory Aids -- -- 15 Intravenous Therapy/Heparin/Saline Lock -- -- 0 Gait/Transferring -- -- 20 Mental Status -- -- 0 Score -- -- 75 OTHER [place] Fall Risk -- -- High 01/03/18 0113 01/03/18 0515 Restraint Interventions Safety Promotion/Fall Prevention -- fall prevention program maintained;nonskid shoes/slippers when out of bed;safety round/check completed Activity Activity Type -- -- Activity Assistance Provided -- -- Assistive Device Utilized -- -- Positioning Body Position independent -- Daily Care Interventions Self-Care Promotion -- -- [place] Fall Risk History of Falling -- -- Secondary Diagnosis -- -- Ambulatory Aids -- -- Intravenous Therapy/Heparin/Saline Lock -- -- Gait/Transferring -- -- Mental Status -- -- Score -- -- OTHER [place] Fall Risk -- -- Goal: Infection Control Outcome: Ongoing (Interventions Implemented as Appropriate) 01/02/18 2104 01/03/18 0100 Coping Strategies Supportive Measures relaxation techniques promoted;self-care encouraged;self- responsibility promoted;verbalization of feelings encouraged -- Safety Interventions Isolation Precautions -- standard precautions maintained Infection Prevention -- single patient room provided;rest/sleep promoted;environmental surveillanceperformed;barrier precautions utilized * Plan of Care - Mavis Richardson RN - 01/02/2018 3:25 PM EDT Problem: Patient Care Overview Goal: Plan of Care Review Outcome: Ongoing (Interventions Implemented as Appropriate) 12/31/17 0359 01/02/18 1024 Coping/Psychosocial Plan Of Care Reviewed With -- patient Plan of Care Review Progress no change -- OUTCOME EVALUATION NOTE: OUTCOME SUMMARY: Assessment done and meds given per MD order. Sitter at bedside. Pt. Sodium was high at 155 (MD galarza) MD at bedside to assess pt. And desmopressin increased from 0.05mg to 0.1mg and MD instructed RN and SCREENER AND BLENDER to make sure pt. Is getting his fluids. Vitals stable. No events. Safety maintained. Daily electrolyte panel ordered. PLAN MOVING FORWARD: PT/ Sodium level monitoring. INDIVIDUALIZED FALL PREVENTION INTERVENTIONS: Patient-specific fall risk factors per assessment: [current deficits]: High falls risk, IV, Tibial fracture. Assistance [level of assistance required for transfers and ambulation]: 2 person assist with walker/gait belt Supervision [direct monitoring required during toileting and ADLs]: Hands on Surveillance [continuous indirect monitoring]: Purposeful rounding, call morris in reach, sitter at bedside Patient-specific fall prevention interventions for sensory deficits provided, if applicable: [X] N/A CPG GOAL OUTCOME EVALUATION: * Plan of Care - Cristy Lu RN - 01/02/2018 2:29 AM EDT Problem: Patient Care Overview Goal: Plan of Care Review OUTCOME EVALUATION NOTE: OUTCOME SUMMARY: Alert, able to answer some questions and did not report pain this shift. VSS - tachycardia noted atrest between with HR between 100-115, asymptomatic otherwise. MAX Dominguez notified. No intervention performed - will continue to monitor HR & any associated symptoms. For most of the shift, pt was yelling out intermitently. Given all scheduled PM medications, utilized music, reading therapy, movies, etc. However pt remained unconsolable, and continued yelling out.Around midnight, given additional PRN dose of Seroquel. Given with some good effect, pt fell asleeparound 0130. No other events. Sitter to remain at bedside. Will continue to monitor and notify withany changes. PLAN MOVING FORWARD: Maintain sleep/wake cycle, offer theraputic calming techniques, encourage ambulation & activities outside of room, involve pt in plan of care, discharge planning INDIVIDUALIZED FALL PREVENTION INTERVENTIONS: Patient-specific fall risk factors per assessment: [current deficits]: generalized weakness, overestimates own abilities Assistance [level of assistance required for transfers and ambulation]: Heavy two person assist Supervision [direct monitoring required during toileting and ADLs]: Hands on Surveillance [continuous indirect monitoring]: hourly rounding, call morris in reach, pt room near unit station, sitter at bedside Patient-specific fall prevention interventions for sensory deficits provided, if applicable: [X] No CPG GOAL OUTCOME EVALUATION: * Plan of Care - Kaela Norwood RN - 01/01/2018 6:28 PM EDT Problem: Patient Care Overview Goal: Plan of Care Review Outcome: Ongoing (Interventions Implemented as Appropriate) 12/31/17 0359 01/01/18 0900 Coping/Psychosocial Plan Of Care Reviewed With -- patient Plan of Care Review Progress no change -- OUTCOME EVALUATION NOTE: OUTCOME SUMMARY: Pt was alert this shift. Enjoys listening to music. Denies pain. Screaming off and on this afternoon. More sleepy this evening. Sitter and agency staff at the bed side. Pleasant with care at times, apprehensive with care at other times. Will continue to monitor. PLAN MOVING FORWARD: Awaiting placement. INDIVIDUALIZED FALL PREVENTION INTERVENTIONS: Patient-specific fall risk factors per assessment: [current deficits]: Generalized weakness. Assistance [level of assistance required for transfers and ambulation]: x2 assist. Supervision [direct monitoring required during toileting and ADLs]: Eyes and hands on. Surveillance [continuous indirect monitoring]: No cords. Continue with sitter. Purposeful rounding. Patient-specific fall prevention interventions for sensory deficits provided, if applicable: [X] Yes CPG GOAL OUTCOME EVALUATION: * Plan of Care - Cristy Lu RN - 01/01/2018 3:11 AM EDT Problem: Patient Care Overview Goal: Plan of Care Review OUTCOME EVALUATION NOTE: OUTCOME SUMMARY: Alert, able to respond to some questions. Reported no pain and repeated awesome after providing care. VSS. Physical assessment as documented. Given all scheduled PO medications - pt did refused tylenol. Sitter remained at beside. Slept for most of the night. No other events. Will continue to monitor and notify with any changes. PLAN MOVING FORWARD: Cluster care, encourage PO intake, maintain 3.2L FR, sitter at bedside, encourage ambulation & OOB activities, discharge planning INDIVIDUALIZED FALL PREVENTION INTERVENTIONS: Patient-specific fall risk factors per assessment: [current deficits]: overestimates own abilities,h/o falls, generalized weakness Assistance [level of assistance required for transfers and ambulation]: Heavy two person assist Supervision [direct monitoring required during toileting and ADLs]: Hands on Surveillance [continuous indirect monitoring]: Hourly rounding, call morris in reach, pt room near unit station, sitter at bedside Patient-specific fall prevention interventions for sensory deficits provided, if applicable: [X] No CPG GOAL OUTCOME EVALUATION: * Plan of Care - Kaela Norwood RN - 12/31/2017 5:33 PM EDT Problem: Patient Care Overview Goal: Plan of Care Review Outcome: Ongoing (Interventions Implemented as Appropriate) 12/31/17 0359 12/31/17 0900 Coping/Psychosocial Plan Of Care Reviewed With -- patient Plan of Care Review Progress no change -- OUTCOME EVALUATION NOTE: OUTCOME SUMMARY: Pt was alert this shift. Unable to answer orientation questions. Got OOB to the wheelchair and wentoutside. Ambulated a little in the room. Mostly screamed all day and was throwing food at dinner time. The caregiver states this is not his normal behavior and she has never seen him act this way before. Nothing seems to make him happy. VSS on RA. No masimo cord due to choking risk. Sitter and agenc y staff at the bedside. Will continue to monitor. PLAN MOVING FORWARD: Encourage pt to get OOB for all meals and get OOB for fresh air. INDIVIDUALIZED FALL PREVENTION INTERVENTIONS: Patient-specific fall risk factors per assessment: [current deficits]: Generalized weakness. Assistance [level of assistance required for transfers and ambulation]: x2 assist. Supervision [direct monitoring required during toileting and ADLs]: Eyes and hands on. Surveillance [continuous indirect monitoring]: Bed alarm, sitter, and purposeful rounding. Patient-specific fall prevention interventions for sensory deficits provided, if applicable: [X] Yes CPG GOAL OUTCOME EVALUATION: * Plan of Care - Shruti Lozoya RN - 12/31/2017 4:15 AM EDT Problem: Patient Care Overview Goal: Plan of Care Review Outcome: Ongoing (Interventions Implemented as Appropriate) 12/31/17 0359 Coping/Psychosocial Plan Of Care Reviewed With patient Plan of Care Review Progress no change OUTCOME EVALUATION NOTE: OUTCOME SUMMARY: Pt admitted 09/02/17 with L hip fracture after fall. Pt s/p repair and now awaitingplacement. Pt stable overnight, much calmer this shift than previously reported. Pt A/O to self, , hospital. Did not know date, time or situation. Answers questions appropriately when asked. Pt cooperative with all care, meds. Used urinal and BSC, allowed bath and oral care. No prn medicationsneeded. Will continue to monitor and will inform MD of any changes. PLAN MOVING FORWARD: Closely monitor VS, labs, assessments. Medicate as ordered and as needed. Await placement when bed available. INDIVIDUALIZED FALL PREVENTION INTERVENTIONS: Patient-specific fall risk factors per assessment: [current deficits]: Weakness, pain, mental status Assistance [level of assistance required for transfers and ambulation]: 1-2 assist OOB, walker for distances Supervision [direct monitoring required during toileting and ADLs]: Hands on if OOB for toileting, 1 assist for ADLs Surveillance [continuous indirect monitoring]: Hourly rounding, bed alarm, sitter present at bedside Patient-specific fall prevention interventions for sensory deficits provided, if applicable: [X] Yes, call morris within easy reach, side rails up x 3, nonslip socks on if OOB, PT consult CPG GOAL OUTCOME EVALUATION: * Plan of Care - Kaela Norwood RN - 12/30/2017 1:24 PM EDT Problem: Patient Care Overview Goal: Plan of Care Review Outcome: Ongoing (Interventions Implemented as Appropriate) 12/30/17 0332 12/30/17 0830 Coping/Psychosocial Plan Of Care Reviewed With -- patient Plan of Care Review Progress no change -- OUTCOME EVALUATION NOTE: OUTCOME SUMMARY: Pt was alert this shift. Unable to answer orientation questions. Slept off and on this morning. Refused afternoon meds. Sitter and agency staff at the bedside. VSS stable on RA. Remains in hospital bed. Will continue to monitor. PLAN MOVING FORWARD: Monitor pain. INDIVIDUALIZED FALL PREVENTION INTERVENTIONS: Patient-specific fall risk factors per assessment: [current deficits]: Generalized weakness. Assistance [level of assistance required for transfers and ambulation]: x2 OOB. Supervision [direct monitoring required during toileting and ADLs]: Eyes and hands on. Surveillance [continuous indirect monitoring]: No cords, pt is unsafe. Sitter at bedside. Patient-specific fall prevention interventions for sensory deficits provided, if applicable: [X] Yes CPG GOAL OUTCOME EVALUATION: * Plan of Care - Jazzmine Pascual RN - 12/30/2017 3:42 AM EDT Problem: Patient Care Overview Goal: Plan of Care Review Outcome: Ongoing (Interventions Implemented as Appropriate) 12/30/17 0332 Coping/Psychosocial Plan Of Care Reviewed With patient Plan of Care Review Progress no change OUTCOME EVALUATION NOTE: OUTCOME SUMMARY: Alert, ISHAAN orientation, follows commands, PERRLA, moves all extremities. 1:1 sitter at bedside, intermittently screaming/moaning, did get some rest overnight with scheduled trazodone / Seroquel / melatonin. Reports an intermittent headache, scheduled tylenol given with good effect. Tachycardic withHR in the low 100s, palpable pulses in wrists and feet. Lungs clear throughout, no cough, on RA, nouse of accessory muscles, breathing appears non labored. Abdomen is firm, rounded, active BS in allquads. Denies N/V. Voids spontaneously using the bedside urinal. No BM yet this shift. Will continue to closely monitor. PLAN MOVING FORWARD: Monitor/treat pain Monitor behavior/saftey awareness 1:1 sitter INDIVIDUALIZED FALL PREVENTION INTERVENTIONS: Patient-specific fall risk factors per assessment: [current deficits]: AMS, impulsive Assistance [level of assistance required for transfers and ambulation]: 1-2 assist Supervision [direct monitoring required during toileting and ADLs]: Hands on Surveillance [continuous indirect monitoring]: Hourly rounding, 1:1 sitter at bedside, call [facility], room near RN station Patient-specific fall prevention interventions for sensory deficits provided, if applicable: [X] No CPG GOAL OUTCOME EVALUATION: * Plan of Care - Kristin Smith RN - 12/29/2017 6:26 PM EDT Problem: Patient Care Overview Goal: Plan of Care Review Outcome: Ongoing (Interventions Implemented as Appropriate) 12/28/17 2341 12/29/17 0850 Coping/Psychosocial Plan Of Care Reviewed With -- patient;caregiver Plan of Care Review Progress no change -- OUTCOME EVALUATION NOTE: OUTCOME SUMMARY: Pt able to state name, but unable to answer other orientation questions. Pt has been intermittentlyresting with eyes closed throughout the day. Occasionally yelling out during shift. Pt PO intake remains adequate. Able to ambulate to bedside chair and sit throughout the afternoon. Incontinent of urine x1. Received PRN Ibuprofen for headache this evening. HR continues to be tachycardic, but BPs are much improved since previous day. No other acute events to note at this time. Pt is currently eating dinner in bedside chair at this time. Sitter in room. Will continue to monitor and notify MD of any changes. PLAN MOVING FORWARD: Goal of OOB 2x/day, encourage relaxation techniques, discharge planning INDIVIDUALIZED FALL PREVENTION INTERVENTIONS: Patient-specific fall risk factors per assessment: [current deficits]: Poor safety awareness, LLE pain, generalized weakness Assistance [level of assistance required for transfers and ambulation]: x2 assist w/ walker Supervision [direct monitoring required during toileting and ADLs]: Hands on, eyes on Surveillance [continuous indirect monitoring]: Sitter at bedside, call light within reach, room near nurses station Patient-specific fall prevention interventions for sensory deficits provided, if applicable: [X] Yes CPG GOAL OUTCOME EVALUATION: * Plan of Care - Skyla Dowd RN - 12/28/2017 11:52 PM EDT Problem: Patient Care Overview Goal: Plan of Care Review Outcome: Ongoing (Interventions Implemented as Appropriate) 12/28/17 2341 Coping/Psychosocial Plan Of Care Reviewed With patient Plan of Care Review Progress no change OUTCOME EVALUATION NOTE: OUTCOME SUMMARY: Patient continues to be restless and has had many periods of yelling out No, no, no and moaning. Able to sleep several hours early this am. When asked, patient denies any pain. Given scheduled Tylenol and applied Bengay cream to L hip and thigh. He enjoyed eating vanilla ice cream with his pills tonight. SCREENER AND BLENDER sitter remains at bedside ensuring safety. PLAN MOVING FORWARD: Awaiting placement. Manage pain. Provide calming and relaxation measures to allow for periods of rest. Sitter at bedside. 3.2 L fluid restriction, monitor sodium levels. INDIVIDUALIZED FALL PREVENTION INTERVENTIONS: Patient-specific fall risk factors per assessment: [current deficits]: At risk d/t L hip repair, blindness, poor safety judgement, cognitive impairment. Sitter remains at bedside continuously. Assistance [level of assistance required for transfers and ambulation]: 2 assist Supervision [direct monitoring required during toileting and ADLs]: hands on, eyes on Surveillance [continuous indirect monitoring]: sitter at bedside, hourly rounding Patient-specific fall prevention interventions for sensory deficits provided, if applicable: yes- blind, sitter at bedside for safety CPG GOAL OUTCOME EVALUATION: Goal: Fall Prevention-Safe Patient Handling Outcome: Ongoing (Interventions Implemented as Appropriate) 12/28/172044 Activity Activity Assistance Provided assistance, 2 people Assistive Device Utilized front-wheel walker [place] Fall Risk History of Falling 25 Secondary Diagnosis 15 Ambulatory Aids 15 Intravenous Therapy/Heparin/Saline Lock 0 Gait/Transferring 20 Mental Status 15 Score 90 OTHER [place] Fall Risk High Goal: Infection Control Outcome: Ongoing (Interventions Implemented as Appropriate) 12/28/172044 Coping Strategies Supportive Measures active listening utilized;positive reinforcement provided;relaxation techniquespromoted;verbalization of feelings encouraged * Plan of Care - Kristin Smith RN - 12/28/2017 6:53 PM EDT Problem: Patient Care Overview Goal: Plan of Care Review Outcome: Ongoing (Interventions Implemented as Appropriate) 12/28/171847 Coping/Psychosocial Plan Of Care Reviewed With patient Plan of Care Review Progress progress towards functional goals is fair OUTCOME EVALUATION NOTE: OUTCOME SUMMARY: Pt able to state name, but unable answer any other orientation questions. Periodically yelling out throughout the day. This afternoon patient's BPs elevated, see doc flows. MD Peters made aware. Pt has also been tachycardic throughout the day. Pt denying chest pain, headache, or dizziness. Asymptomatic during episode of HTN. Metoprolol dose increased, and BPs have since improved. Pt remains tachycardic at this time. Incontinent of urine and stool this shift, see I+Os. PO intake remains adequate throughout the day. At this time, pt has taken in 2550 mL of fluid. PRN Ibuprofen given this evening for pain as pt yelling out and when this RN asked if he was in pain he said yes while holding his back. Sitter remains at bedside throughout the day. No other acute events to note at this time. Will continue to monitor and notify MD of any changes. PLAN MOVING FORWARD: Pain management, provide relaxation techniques, continue with sitter at bedside, monitor PO intake,discharge planning INDIVIDUALIZED FALL PREVENTION INTERVENTIONS: Patient-specific fall risk factors per assessment: [current deficits]: LLE pain, generalized weakness, poor safety awareness Assistance [level of assistance required for transfers and ambulation]: x2 assist Supervision [direct monitoring required during toileting and ADLs]: Hands on Surveillance [continuous indirect monitoring]: Sitter at bedside, room near nurses station, purposeful rounding Patient-specific fall prevention interventions for sensory deficits provided, if applicable: [X] Yes CPG GOAL OUTCOME EVALUATION: * Plan of Care - Emerald Rasheed RN - 12/28/2017 3:56 AM EDT Problem: Patient Care Overview Goal: Plan of Care Review Outcome: Ongoing (Interventions Implemented as Appropriate) 12/17/17 0523 12/27/17 2105 Coping/Psychosocial Plan Of Care Reviewed With -- patient Plan of Care Review Progress progress towards functional goals is fair -- OUTCOME EVALUATION NOTE: OUTCOME SUMMARY: Unable to assess orientation as patient would not communicate with this RN anything other than no. Would not allow this RN to perform an assessment. One time BMP obtained at [place]. Incontinent of large amounts of urine. No BM this shift, passing gas. Miguel Angel had a rough night overall with little sleep, yelling out most of the night. 1:1 sitter maintained. Will cont to monitor. PLAN MOVING FORWARD: Encourage mobility, discharge planning INDIVIDUALIZED FALL PREVENTION INTERVENTIONS: Patient-specific fall risk factors per assessment: [current deficits]: Disorientation Assistance [level of assistance required for transfers and ambulation]: 2-3 assist w/ walker and chair Supervision [direct monitoring required during toileting and ADLs]: Hands on Surveillance [continuous indirect monitoring]: Purposeful rounding, nurse knowledge exchange Patient-specific fall prevention interventions for sensory deficits provided, if applicable: No CPG GOAL OUTCOME EVALUATION: * Plan of Care - Hafsa Levine RN - 12/27/2017 4:52 PM EDT Problem: Patient Care Overview Goal: Plan of Care Review Outcome: Ongoing (Interventions Implemented as Appropriate) 12/17/17 0523 12/26/172057 Coping/Psychosocial Plan Of Care Reviewed With -- patient Plan of Care Review Progress progress towards functional goals is fair -- OUTCOME EVALUATION NOTE: OUTCOME SUMMARY: Pt slept most of this shift, 1:1 sitter at bedside. Denies pain. Yelling out when he woke. Eating well. PLAN MOVING FORWARD: Continue with 1:1 sitter. Reorient prn. Pain management. Fld restriction as ordered. Prn meds as needed. Offer toileting. INDIVIDUALIZED FALL PREVENTION INTERVENTIONS: Patient-specific fall risk factors per assessment: [current deficits]: Cognitive impairment, mobility impairment. Assistance [level of assistance required for transfers and ambulation]: 2 person assist with walker Supervision [direct monitoring required during toileting and ADLs]: Hands on, eyes on Surveillance [continuous indirect monitoring]: Purposeful rounding, bed alarm, 1:1 sitter Patient-specific fall prevention interventions for sensory deficits provided, if applicable: yes CPG GOAL OUTCOME EVALUATION: Goal: Individualization & Mutuality Outcome: Ongoing (Interventions Implemented as Appropriate) 10/17/17 1745 11/05/17 0354 11/18/17 0546 Individualization Patient Specific Preferences -- sitter at bedside, cluster care -- Patient Specific Goals -- maintain safety plan, limit interuptions -- Patient Specific Interventions -- -- -- Mutuality/Individual Preferences What Anxieties, Fears or Concerns Do You Have About Your Health or Care? ISHAAN -- -- What Questions Do You Have About Your Health or Care? ISHAAN -- -- What Information Would Help Us Give You More Personalized Care? -- -- Sister, Bettina, is his guardian 12/04/17 0608 Individualization Patient Specific Preferences -- Patient Specific Goals -- Patient Specific Interventions continue 3200 ml fluid allowance as per orders Mutuality/Individual Preferences What Anxieties, Fears or Concerns Do You Have About Your Health or Care? -- What Questions Do You Have About Your Health or Care? -- What Information Would Help Us Give You More Personalized Care? -- Goal: Fall Prevention-Safe Patient Handling Outcome: Ongoing (Interventions Implemented as Appropriate) 12/27/17 1352 12/27/17 1500 Restraint Interventions Safety Promotion/Fall Prevention -- safety round/check completed;nonskid shoes/slippers when out ofbed;fall prevention program maintained;activity supervised Activity Activity Type -- activity adjusted per tolerance Activity Assistance Provided -- assistance, 2 people Assistive Device Utilized -- front-wheel walker Positioning Body Position -- independent Daily Care Interventions Self-Care Promotion -- independence encouraged [place] Fall Risk History of Falling 25 -- Secondary Diagnosis 15 -- Ambulatory Aids 15 -- Intravenous Therapy/Heparin/Saline Lock 0 -- Gait/Transferring 20 -- Mental Status 15 -- Score 90 -- OTHER [place] Fall Risk High -- Goal: Infection Control Outcome: Ongoing (Interventions Implemented as Appropriate) 12/27/17 1352 12/27/17 1500 Coping Strategies Supportive Measures active listening utilized;positive reinforcement provided;verbalization of feelings encouraged -- Safety Interventions Isolation Precautions -- standard precautions maintained Infection Prevention -- environmental surveillance performed;rest/sleep promoted;single patient room provided Goal: Discharge Needs Assessment Outcome: Ongoing (Interventions Implemented as Appropriate) 11/23/172134 Discharge Needs Assessment Concerns To Be Addressed adjustment to diagnosis/illness concerns;basic needs concerns;care coordination/care conferences;cognitive/perceptual concerns;discharge planning concerns;home safety concerns Readmission Within The Last 30 Days no previous admission in last 30 days Provider Choice List(s) Given no Equipment Needed After Discharge walker, rolling;commode;wheelchair Discharge Facility/Level Of Care Needs assisted living facility;rehabilitation facility;nursing facility, skilled;nursing facility, basic;adult foster care/nursing home Current Discharge Risk chronically ill;cognitively impaired;dependent with mobility/activities of daily living;physical impairment Discharge Disposition still a patient Current Health Outpatient/Agency/Support Group Needs assisted living facility (specify);half-way facility (specify);[facility] acute care facility (specify);nursing home (specify) Anticipated Changes Related to Illness none Living Environment Transportation Available family or friend will provide;ambulance;van, wheelchair accessible Activity/Self Care Review of Systems Equipment Currently Used at Home none * Plan of Care - Sarika Michael RN - 12/27/2017 4:35 AM EDT Problem: Patient Care Overview Goal: Plan of Care Review Outcome: Ongoing (Interventions Implemented as Appropriate) 12/17/17 0523 12/26/172057 Coping/Psychosocial Plan Of Care Reviewed With -- patient Plan of Care Review Progress progress towards functional goals is fair -- OUTCOME EVALUATION NOTE: OUTCOME SUMMARY: AxO to self and place. VSS. No c/o pain. Pt agitated and restless until about 0200. PRN Seroquel 50mg given with positive effect. Pt intermittently incontinent of urine, incontinence care provided. PVR bladder scan 42. No BM overnight. Sitter remains at bedside. Labs drawn. Will continue to monitorand page with any changes. PLAN MOVING FORWARD: Continue to improve strength and mobility. L knee xray when pt is able to tolerate. Monitor/manage pain. Monitor sodium. INDIVIDUALIZED FALL PREVENTION INTERVENTIONS: Patient-specific fall risk factors per assessment: [current deficits]: Hx of falls, impaired mobility. Assistance [level of assistance required for transfers and ambulation]: 2 assist with walker. Supervision [direct monitoring required during toileting and ADLs]: Hands on. Surveillance [continuous indirect monitoring]: Hourly rounding, room near unit station, call morris within reach[facility] Patient-specific fall prevention interventions for sensory deficits provided, if applicable: [X] N/A CPG GOAL OUTCOME EVALUATION: * Plan of Care - Nickie Zamora RN - 12/26/2017 5:11 PM EDT Problem: Patient Care Overview Goal: Plan of Care Review Outcome: Ongoing (Interventions Implemented as Appropriate) 12/17/17 0523 12/26/17 1300 Coping/Psychosocial Plan Of Care Reviewed With -- patient Plan of Care Review Progress progress towards functional goals is fair -- OUTCOME EVALUATION NOTE: OUTCOME SUMMARY: Patient alert. Oriented to self and time. Disoriented to time and situation. VSS. See doc flow for assessment. Patient denies pain when asked. When asked, Miguel Angel, how are you? Patient responds, Awesome, why?. Patient had a BM today on the commode. No acute changes, will continue to monitor. PLAN MOVING FORWARD: Placement INDIVIDUALIZED FALL PREVENTION INTERVENTIONS: Patient-specific fall risk factors per assessment: [current deficits]: Generalized weakness, disorientation. Assistance [level of assistance required for transfers and ambulation]: 2 assist Supervision [direct monitoring required during toileting and ADLs]: Hands on Surveillance [continuous indirect monitoring]: 1:1 sitter, purposeful hourly rounding. Patient-specific fall prevention interventions for sensory deficits provided, if applicable: [X] Yes [facility] GOAL OUTCOME EVALUATION: Goal: Individualization & Mutuality Outcome: Ongoing (Interventions Implemented as Appropriate) 10/17/17 1745 11/05/17 0354 11/18/17 0546 Individualization Patient Specific Preferences -- sitter at bedside, cluster care -- Patient Specific Goals -- maintain safety plan, limit interuptions -- Patient Specific Interventions -- -- -- Mutuality/Individual Preferences What Anxieties, Fears or Concerns Do You Have About Your Health or Care? ISHAAN -- -- What Questions Do You Have About Your Health or Care? ISHAAN -- -- What Information Would Help Us Give You More Personalized Care? -- -- Sister, Bettina, is his guardian 12/04/17 0608 Individualization Patient Specific Preferences -- Patient Specific Goals -- Patient Specific Interventions continue 3200 ml fluid allowance as per orders Mutuality/Individual Preferences What Anxieties, Fears or Concerns Do You Have About Your Health or Care? -- What Questions Do You Have About Your Health or Care? -- What Information Would Help Us Give You More Personalized Care? -- Goal: Fall Prevention-Safe Patient Handling Outcome: Ongoing (Interventions Implemented as Appropriate) 12/26/17 1300 12/26/17 1500 12/26/17 1516 Restraint Interventions Safety Promotion/Fall Prevention -- -- -- Activity Activity Type -- -- activity adjusted per tolerance Activity Assistance Provided -- -- assistance, 2 people Assistive Device Utilized -- front-wheel walker -- Positioning Body Position -- -- -- Daily Care Interventions Self-Care Promotion -- independence encouraged -- [place] Fall Risk History of Falling 25 -- -- Secondary Diagnosis 15 -- -- Ambulatory Aids 15 -- -- Intravenous Therapy/Heparin/Saline Lock 0 -- -- Gait/Transferring 20 -- -- Mental Status 15 -- -- Score 90 -- -- OTHER [place] Fall Risk High -- -- 12/26/17 1600 Restraint Interventions Safety Promotion/Fall Prevention safety round/check completed Activity Activity Type -- Activity Assistance Provided -- Assistive Device Utilized -- Positioning Body Position independent Daily Care Interventions Self-Care Promotion -- [place] Fall Risk History of Falling -- Secondary Diagnosis -- Ambulatory Aids -- Intravenous Therapy/Heparin/Saline Lock -- Gait/Transferring -- Mental Status -- Score -- OTHER [place] Fall Risk -- Goal: Infection Control Outcome: Ongoing (Interventions Implemented as Appropriate) 12/26/17 1300 12/26/17 1600 Coping Strategies Supportive Measures active listening utilized -- Safety Interventions Isolation Precautions -- standard precautions maintained Infection Prevention -- environmental surveillance performed Goal: Discharge Needs Assessment Outcome: Ongoing (Interventions Implemented as Appropriate) 11/23/17 2135 Discharge Needs Assessment Concerns To Be Addressed adjustment to diagnosis/illness concerns;basic needs concerns;care coordination/care conferences;cognitive/perceptual concerns;discharge planning concerns;home safety concerns Readmission Within The Last 30 Days no previous admission in last 30 days Provider Choice List(s) Given no Equipment Needed After Discharge walker, rolling;commode;wheelchair Discharge Facility/Level Of Care Needs assisted living facility;rehabilitation facility;nursing facility, skilled;nursing facility, basic;adult foster care/nursing home Current Discharge Risk chronically ill;cognitively impaired;dependent with mobility/activities of daily living;physical impairment Discharge Disposition still a patient Current Health Outpatient/Agency/Support Group Needs assisted living facility (specify);half-way facility (specify);supervisor long goods acute care facility (specify);nursing home (specify) Anticipated Changes Related to Illness none Living Environment Transportation Available family or friend will provide;ambulance;van, wheelchair accessible Activity/Self Care Review of Systems Equipment Currently Used at Home none Goal: Interdisciplinary Rounds/Family Conf Outcome: Ongoing (Interventions Implemented as Appropriate) 12/09/17 2324 Interdisciplinary Rounds/Family Conf Participants patient;nursing Problem: Skin Integrity Impairment, Risk/Actual (Adult) Goal: Skin Integrity/Wound Healing Patient will demonstrate the desired outcomes by discharge/transition of care. Outcome: Ongoing (Interventions Implemented as Appropriate) 12/20/17 1629 Skin Integrity Impairment, Risk/Actual (Adult) Skin Integrity/Wound Healing making progress toward outcome Problem: Thought Process Alteration (Adult) Goal: Improved Thought Process Patient will demonstrate the desired outcomes by discharge/transition of care. Outcome: Ongoing (Interventions Implemented as Appropriate) 12/20/17 1629 Thought Process Alteration (Adult) Improved Thought Process making progress toward outcome Problem: Fluid Volume Excess (Adult,Obstetrics,Pediatric) Goal: Stable Weight Patient will demonstrate the desired outcomes by discharge/transition of care. Outcome: Ongoing (Interventions Implemented as Appropriate) 12/20/17 1629 Fluid Volume Excess (Adult,Obstetrics,Pediatric) Stable Weight making progress toward outcome Goal: Balanced Intake/Output Patient will demonstrate the desired outcomes by discharge/transition of care. Outcome: Ongoing (Interventions Implemented as Appropriate) 12/20/17 1629 Fluid Volume Excess (Adult,Obstetrics,Pediatric) Balanced Intake/Output making progress toward outcome * Plan of Care - Mary Jo Haro RN - 12/26/2017 6:20 AM EDT Problem: Patient Care Overview Goal: Plan of Care Review Outcome: Ongoing (Interventions Implemented as Appropriate) 12/17/17 0523 12/25/172130 Coping/Psychosocial Plan Of Care Reviewed With -- patient Plan of Care Review Progress progress towards functional goals is fair -- OUTCOME EVALUATION NOTE: OUTCOME SUMMARY: Pt alert, AOx4. VSS (when pt lets staff take vitals). See doc flows for system assessments. Pt agitated, continuously screaming out but states No, Why? when asked if he is in pain. Pt observed to be ripping sheets/ blankets/ t-shirts, throwing items aggressively across room - pt states I don't care when asked to cease these behaviors. Relaxation techniques promoted w/ minimal effect. Pt observed to be grabbing R knee and screaming/crying - one time 50 mg Tramadol PO given w/ moderate effect. Sitter present at bedside throughout shift. Pt refused lab draws x2 for shift - 2700 team notified. Pt accepted AM lab draw. NA = 154 this AM; 2700 notified. Pt slept intermittently for shift. Will continue to monitor. PLAN MOVING FORWARD: Activity as tolerated, maintain safety, pain management INDIVIDUALIZED FALL PREVENTION INTERVENTIONS: Patient-specific fall risk factors per assessment: [current deficits]: Mobility at baseline, blind Assistance [level of assistance required for transfers and ambulation]: 2 assist w/ walker Supervision [direct monitoring required during toileting and ADLs]: Hands on Surveillance [continuous indirect monitoring]: Call morris within reach, hourly rounding, bed alarm on, sitter at bedside Patient-specific fall prevention interventions for sensory deficits provided, if applicable: [X] Yes CPG GOAL OUTCOME EVALUATION: * Plan of Care - Debbie Chan RN - 12/25/2017 5:48 PM EDT Problem: Patient Care Overview Goal: Plan of Care Review Outcome: Ongoing (Interventions Implemented as Appropriate) 12/17/1752212/25/17 1130 Coping/Psychosocial Plan Of Care Reviewed With -- patient Plan of Care Review Progress progress towards functional goals is fair -- OUTCOME EVALUATION NOTE: OUTCOME SUMMARY: ?? Pt orientated to self throughout shift. Pt denied pain. Scheduled tylenol administered per order. Pt ambulated in gym with PT this morning and complained of R knee pain. Knee xray obtained. Pt repositioning self in bed. Fluid restriction maintained. Sitter remains at bedside. Safety maintained. ?? PLAN MOVING FORWARD: ?? Continue to encourage independence and mobility ?? INDIVIDUALIZED FALL PREVENTION INTERVENTIONS: ?? Patient-specific fall risk factors per assessment: [current deficits]: Developmental delay, confusion ?? Assistance [level of assistance required for transfers and ambulation]: 1-2 assist w/ FWW ?? Supervision [direct monitoring required during toileting and ADLs]: Hands on ?? Surveillance [continuous indirect monitoring]: Purposeful rounding, environmental surveillance, sitter ?? Patient-specific fall prevention interventions for sensory deficits provided, if applicable: [X] Yes ? CPG GOAL OUTCOME EVALUATION: ?? * Plan of Care - Denisse Lebron RN - 12/25/2017 3:18 AM EDT Problem: Patient Care Overview Goal: Plan of Care Review Outcome: Ongoing (Interventions Implemented as Appropriate) 12/17/1752212/24/17 2015 Coping/Psychosocial Plan Of Care Reviewed With -- patient Plan of Care Review Progress progress towards functional goals is fair -- OUTCOME EVALUATION NOTE: OUTCOME SUMMARY: Pt only oriented to self. In the beginning of the night pt quiet and cooperative with care, however pt had periods where he was very restless and frequently calling out. Admin prn Seroquel per orders which seemed to help pt rest for awhile. Pt used urinal often and PVR bladder scandone, showing only 30 ml. Pt denied any pain during the night. Pt's Hr was intermittently tachy in the 110's (see doc flow) all other v/s stable. Sitter remained at bedside. Safety maintained. Will continue to monitor. PLAN MOVING FORWARD: 1:1 sitter, preparing for discharge INDIVIDUALIZED FALL PREVENTION INTERVENTIONS: Patient-specific fall risk factors per assessment: [current deficits]: High falls risk, disorientation, generalized weakness Assistance [level of assistance required for transfers and ambulation]: 2 assist Supervision [direct monitoring required during toileting and ADLs]: Hands on Surveillance [continuous indirect monitoring]: Purposeful rounding, room near nurses station Patient-specific fall prevention interventions for sensory deficits provided, if applicable: [X] Yes * Plan of Care - Debbie Chan RN - 12/24/2017 4:05 PM EDT Problem: Patient Care Overview Goal: Plan of Care Review Outcome: Ongoing (Interventions Implemented as Appropriate) 12/17/17 0523 12/23/17 2030 Coping/Psychosocial Plan Of Care Reviewed With -- patient Plan of Care Review Progress progress towards functional goals is fair -- OUTCOME EVALUATION NOTE: OUTCOME SUMMARY: Pt orientated to self and intermittently place throughout shift. Pt denied pain. Scheduled tylenol administered per order. Pt ambulated outside via wheelchair and sitter this afternoon and tolerated well. Sitter remains at bedside. Safety maintained. PLAN MOVING FORWARD: Continue to encourage independence and mobility INDIVIDUALIZED FALL PREVENTION INTERVENTIONS: Patient-specific fall risk factors per assessment: [current deficits]: Developmental delay, confusion Assistance [level of assistance required for transfers and ambulation]: 1-2 assist Supervision [direct monitoring required during toileting and ADLs]: Hands on Surveillance [continuous indirect monitoring]: Purposeful rounding, environmental surveillance, sitter Patient-specific fall prevention interventions for sensory deficits provided, if applicable: [X] Yes CPG GOAL OUTCOME EVALUATION: * Plan of Care - Denisse Lebron RN - 12/24/2017 3:29 AM EDT Problem: Patient Care Overview Goal: Plan of Care Review Outcome: Ongoing (Interventions Implemented as Appropriate) 12/17/17 0512/23/17 2030 Coping/Psychosocial Plan Of Care Reviewed With -- patient Plan of Care Review Progress progress towards functional goals is fair -- OUTCOME EVALUATION NOTE: OUTCOME SUMMARY: Pt cooperative with care, however frequently restless and yelling out during the night. Admin both scheduled and prn meds per orders. Pt offered multiple snacks, different types of music and continued with the 1:1 sitter. SCREENER AND BLENDER played the guitar for pt which appeared to help pt settle down for a brief period of time. Pt offered the urinal multiple times although pt continued to urinate in bed. Pt had one large BM later in the shift and after pt was able to relax and fall asleep briefly. V/S stable. Safety maintained. Will continue to monitor. PLAN MOVING FORWARD: Preparing for discharge INDIVIDUALIZED FALL PREVENTION INTERVENTIONS: Patient-specific fall risk factors per assessment: [current deficits]:, high falls risk, impulsive Assistance [level of assistance required for transfers and ambulation]: 2 assist Supervision [direct monitoring required during toileting and ADLs]: Hands on Surveillance [continuous indirect monitoring]: Purposeful rounding, room near nurses station Patient-specific fall prevention interventions for sensory deficits provided, if applicable: [X] Yes * Plan of Care - Vandana Jean Baptiste RN - 12/23/2017 5:43 PM EDT Problem: Patient Care Overview Goal: Plan of Care Review Outcome: Ongoing (Interventions Implemented as Appropriate) 12/17/17 0523 12/23/17 1045 Coping/Psychosocial Plan Of Care Reviewed With -- patient Plan of Care Review Progress progress towards functional goals is fair -- OUTCOME EVALUATION NOTE: OUTCOME SUMMARY: Pt is alert to self, VSS. Pt had a relatively good day. Sitter remains at bedside. No acute events PLAN MOVING FORWARD: Awaiting placement INDIVIDUALIZED FALL PREVENTION INTERVENTIONS: Patient-specific fall risk factors per assessment: [current deficits]: High fall risk Assistance [level of assistance required for transfers and ambulation]: 2 assist Supervision [direct monitoring required during toileting and ADLs]: Hands on Surveillance [continuous indirect monitoring]: Hourly rounding, call morris within reach, bed left inlowest position. Non skid socks on Patient-specific fall prevention interventions for sensory deficits provided, if applicable: [X] N/A CPG GOAL OUTCOME EVALUATION: * Plan of Care - Denisse Lebron RN - 12/23/2017 2:34 AM EDT Problem: Patient Care Overview Goal: Plan of Care Review Outcome: Ongoing (Interventions Implemented as Appropriate) 12/17/1752212/22/172014 Coping/Psychosocial Plan Of Care Reviewed With -- patient Plan of Care Review Progress progress towards functional goals is fair -- OUTCOME EVALUATION NOTE: OUTCOME SUMMARY: Pt calm and cooperative with care. Pt denied pain or discomfort during the night. V/s stable, ( see doc flow). Pt slept in between care. Sitter remained at bedside. Will continue to monitor. Safety maintained. PLAN MOVING FORWARD: Preparing for discharge INDIVIDUALIZED FALL PREVENTION INTERVENTIONS: Patient-specific fall risk factors per assessment: [current deficits]: high falls risk, impulsive Assistance [level of assistance required for transfers and ambulation]: 2 assist Supervision [direct monitoring required during toileting and ADLs]: Hands on Surveillance [continuous indirect monitoring]: Purposeful rounding, room near nurses station Patient-specific fall prevention interventions for sensory deficits provided, if applicable: [X] Yes * Plan of Care - Vandana Jean Baptiste RN - 12/22/2017 8:12 PM EDT Problem: Patient Care Overview Goal: Plan of Care Review Outcome: Ongoing (Interventions Implemented as Appropriate) 12/17/1752212/22/17 0834 Coping/Psychosocial Plan Of Care Reviewed With -- patient (caregiver ) Plan of Care Review Progress progress towards functional goals is fair -- OUTCOME EVALUATION NOTE: OUTCOME SUMMARY: Pt aler to self, VSS. Pt went outside this morning with caregiver and SCREENER AND BLENDER. Pt was incontinent throughout shift. Pt started to become more agitated this afternoon, PRN Seroquel was given with little relief. Pt in chair for most of the day. Sitter remains at bedside. No acute changes. PLAN MOVING FORWARD: Possible discharge tomorrow INDIVIDUALIZED FALL PREVENTION INTERVENTIONS: Patient-specific fall risk factors per assessment: [current deficits]: High fall risk Assistance [level of assistance required for transfers and ambulation]: 2 assist Supervision [direct monitoring required during toileting and ADLs]: Hands on Surveillance [continuous indirect monitoring]: Hourly rounding, call morris within reach, bed left inlowest position, non skid socks on, sitter at bedside Patient-specific fall prevention interventions for sensory deficits provided, if applicable: [X] N/A CPG GOAL OUTCOME EVALUATION: * Plan of Care - Yecenia Spicer RN - 12/22/2017 2:31 AM EDT Problem: Patient Care Overview Goal: Plan of Care Review Outcome: Ongoing (Interventions Implemented as Appropriate) 12/17/17 0523 12/21/172011 Coping/Psychosocial Plan Of Care Reviewed With -- spouse (sitter) Plan of Care Review Progress progress towards functional goals is fair -- OUTCOME EVALUATION NOTE: OUTCOME SUMMARY: Patient continues to yell. Has sitter at bedside. Took pills without difficulty at bedtime. Remainson fluid restriction. Heart rate regular. PLAN MOVING FORWARD: Mobility and Confusion INDIVIDUALIZED FALL PREVENTION INTERVENTIONS: Patient-specific fall risk factors per assessment: [current deficits]: Weakness and disorientation Assistance [level of assistance required for transfers and ambulation]: 2 assist with walker Supervision [direct monitoring required during toileting and ADLs]: Hands on Surveillance [continuous indirect monitoring]: 2 assist Patient-specific fall prevention interventions for sensory deficits provided, if applicable: [X] N/A CPG GOAL OUTCOME EVALUATION: * Plan of Care - Vandana Jean Baptiste RN - 12/21/2017 5:40 PM EDT Problem: Patient Care Overview Goal: Plan of Care Review Outcome: Ongoing (Interventions Implemented as Appropriate) 12/17/17 0523 12/21/17 0830 Coping/Psychosocial Plan Of Care Reviewed With -- patient Plan of Care Review Progress progress towards functional goals is fair -- OUTCOME EVALUATION NOTE: OUTCOME SUMMARY: Pt is alert to self, VSS. Pt went outside with caregiver and SCREENER AND BLENDER. Pt became more agitated in the afternoon, PRN meds given. Sitter remains at bedside. No acute changes. PLAN MOVING FORWARD: Continue to work with PT INDIVIDUALIZED FALL PREVENTION INTERVENTIONS: Patient-specific fall risk factors per assessment: [current deficits]: High fall risk Assistance [level of assistance required for transfers and ambulation]: 2 assist Supervision [direct monitoring required during toileting and ADLs]: Hands on Surveillance [continuous indirect monitoring]: Hourly rounding, bed left in lowest position, call morris within reach, sitter at bedside Patient-specific fall prevention interventions for sensory deficits provided, if applicable: [X] N/A CPG GOAL OUTCOME EVALUATION: * Plan of Care - Debbie Hale RN - 12/21/2017 1:52 AM EDT Problem: Patient Care Overview Goal: Plan of Care Review Outcome: Ongoing (Interventions Implemented as Appropriate) 12/17/1752212/20/172010 Coping/Psychosocial Plan Of Care Reviewed With -- patient Plan of Care Review Progress progress towards functional goals is fair -- OUTCOME EVALUATION NOTE: OUTCOME SUMMARY: Pt Oriented to place and self. Pt was agitated at beginning of shift,. Meds were given per SEP. Pt settled in and rested for most of the evening. Pt VSS. Pt is able to make needs known, Sitter at bedside, pt safety maintained. WIll continue to monitor pt. PLAN MOVING FORWARD: PT to work on stairs with pt this will determine discharge to home. Monitor VS Sitter at bedside Reassurance and positive encouragement INDIVIDUALIZED FALL PREVENTION INTERVENTIONS: Patient-specific fall risk factors per assessment: [current deficits]: Weakness, visually impaired,disoriented Assistance [level of assistance required for transfers and ambulation]: 1-2 assist Supervision [direct monitoring required during toileting and ADLs]: Hands on Surveillance [continuous indirect monitoring]: sitter at bedside, purposeful rounding, room near unit station Patient-specific fall prevention interventions for sensory deficits provided, if applicable: [X] No CPG GOAL OUTCOME EVALUATION: * Plan of Care - Adia Clarke RN - 12/20/2017 4:34 PM EDT Problem: Patient Care Overview Goal: Plan of Care Review Outcome: Ongoing (Interventions Implemented as Appropriate) OUTCOME EVALUATION NOTE: OUTCOME SUMMARY: A+O to self and place. VSS. Pt showered and went outside today, tolerated well. Otherwise pt very vocal throughout shift. PLAN MOVING FORWARD: Encourage ambulation. INDIVIDUALIZED FALL PREVENTION INTERVENTIONS: Patient-specific fall risk factors per assessment: [current deficits]: Pt is a high fall risk due to fall history and weakness. Assistance [level of assistance required for transfers and ambulation]: 2 assist w walker Supervision [direct monitoring required during toileting and ADLs]: Hands on Surveillance [continuous indirect monitoring]: Hourly rounding, call light within reach, pt calls appropriately, nonskid socks when out of bed, sitter at bedside. Patient-specific fall prevention interventions for sensory deficits provided, if applicable: [X] N/A CPG GOAL OUTCOME EVALUATION: * Plan of Care - Debbie Hale RN - 12/20/2017 7:40 AM EDT Problem: Patient Care Overview Goal: Plan of Care Review Outcome: Ongoing (Interventions Implemented as Appropriate) 12/17/1723 12/19/172017 Coping/Psychosocial Plan Of Care Reviewed With -- patient Plan of Care Review Progress progress towards functional goals is fair -- OUTCOME EVALUATION NOTE: OUTCOME SUMMARY: Pt oriented to place and self. Pt seemed a bit more agitated overnight, Pt was given PRNs with goodeffect. No significant changes overnight, pt safety maintained, pt able to make needs known. Sitterat bedside at all times. Will continue to monitor pt. PLAN MOVING FORWARD: Pt Ambulate on stairs with PT Pain management Maintain safety INDIVIDUALIZED FALL PREVENTION INTERVENTIONS: Patient-specific fall risk factors per assessment: [current deficits]: Weakness, vision impairment,confusion, pain Assistance [level of assistance required for transfers and ambulation]: x2 Supervision [direct monitoring required during toileting and ADLs]: Hands on Surveillance [continuous indirect monitoring]: Call morris within reach, sitter at bedside, frequent rounding, room near unit station Patient-specific fall prevention interventions for sensory deficits provided, if applicable: [X] Yes CPG GOAL OUTCOME EVALUATION: * Plan of Care - Adia Clarke RN - 12/19/2017 5:17 PM EDT Problem: Patient Care Overview Goal: Plan of Care Review Outcome: Ongoing (Interventions Implemented as Appropriate) OUTCOME EVALUATION NOTE: OUTCOME SUMMARY: A+O to self and place. VSS. Pt had a good day, resting off and on throughout shift. No acute events. Sitter at bedside. PLAN MOVING FORWARD: Work with rehab to do stairs. INDIVIDUALIZED FALL PREVENTION INTERVENTIONS: Patient-specific fall risk factors per assessment: [current deficits]: Pt is a high fall risk due to falls and weakness. Assistance [level of assistance required for transfers and ambulation]: 2 assist Supervision [direct monitoring required during toileting and ADLs]: Hands on Surveillance [continuous indirect monitoring]: Hourly rounding, call light within reach, nonskid socks when out of bed, sitter at bedside. Patient-specific fall prevention interventions for sensory deficits provided, if applicable: [X] N/A CPG GOAL OUTCOME EVALUATION: * Plan of Care - Debbie Hale RN - 12/19/2017 7:17 AM EDT Problem: Patient Care Overview Goal: Plan of Care Review Outcome: Ongoing (Interventions Implemented as Appropriate) 12/17/17 0523 12/18/174 Coping/Psychosocial Plan Of Care Reviewed With -- patient Plan of Care Review Progress progress towards functional goals is fair -- OUTCOME EVALUATION NOTE: OUTCOME SUMMARY: Pt oriented to self and place. Pt cooperative and talkative. Pt slept well. No significant changes overnight, sitter at bedside. Pt safety maintained, will continue to monitor pt. PLAN MOVING FORWARD: PT to work with pt on stairs/ pending discharge once able to do stairs INDIVIDUALIZED FALL PREVENTION INTERVENTIONS: Patient-specific fall risk factors per assessment: [current deficits]: Vision impaired, general weakness, disoriented Assistance [level of assistance required for transfers and ambulation]: 2 assist Supervision [direct monitoring required during toileting and ADLs]: Hands on Surveillance [continuous indirect monitoring]: Call morris within reach, sitter at bedside, room nearunit station, purposeful rounding Patient-specific fall prevention interventions for sensory deficits provided, if applicable: [X] No CPG GOAL OUTCOME EVALUATION: * Plan of Care - Adia Clarke RN - 12/18/2017 4:41 PM EDT Problem: Patient Care Overview Goal: Plan of Care Review Outcome: Ongoing (Interventions Implemented as Appropriate) OUTCOME EVALUATION NOTE: OUTCOME SUMMARY: A+O to self and place. Pt went to gym with PT but then refused to work with them. Pt has been incontinent throughout shift. No straight caths necessary today. Caregiver left early afternoon and did not return. No acute events. PLAN MOVING FORWARD: Continue to ambulate. Encourage working with PT/OT. INDIVIDUALIZED FALL PREVENTION INTERVENTIONS: Patient-specific fall risk factors per assessment: [current deficits]: Pt is a high fall risk due to fall history and weakness Assistance [level of assistance required for transfers and ambulation]: 2 assist w walker Supervision [direct monitoring required during toileting and ADLs]: Hands on Surveillance [continuous indirect monitoring]: Hourly rounding, sitter at bedside, nonskid socks when out of bed, bed alarm on. Patient-specific fall prevention interventions for sensory deficits provided, if applicable: [X] N/A CPG GOAL OUTCOME EVALUATION: * Plan of Care - Priscilla Motley RN - 12/18/2017 5:08 AM EDT Problem: Patient Care Overview Goal: Plan of Care Review Outcome: Ongoing (Interventions Implemented as Appropriate) 12/17/17 0523 12/17/17 2105 Coping/Psychosocial Plan Of Care Reviewed With -- patient Plan of Care Review Progress progress towards functional goals is fair -- OUTCOME EVALUATION NOTE: OUTCOME SUMMARY: Pt A+O to self and place only. VSS. Pt sleeping between care, assessment as filed. Sitter at bedside. Pt incontinent of stool x1 over shift (see I&Os). No acute events, will continue to monitor and page with updates. PLAN MOVING FORWARD: Waiting placement INDIVIDUALIZED FALL PREVENTION INTERVENTIONS: Patient-specific fall risk factors per assessment: [current deficits]: Difficulty following commands Assistance [level of assistance required for transfers and ambulation]: 2 assist with walker Supervision [direct monitoring required during toileting and ADLs]: Hands on Surveillance [continuous indirect monitoring]: Purposeful hourly rounding, call morris within reach, sitter at bedside, room near unit station, bed alarm set Patient-specific fall prevention interventions for sensory deficits provided, if applicable: [X] Yes CPG GOAL OUTCOME EVALUATION: * Plan of Care - Mavis Richardson RN - 12/17/2017 3:32 PM EDT Problem: Patient Care Overview Goal: Plan of Care Review Outcome: Ongoing (Interventions Implemented as Appropriate) 12/17/17 0512/17/17 0847 Coping/Psychosocial Plan Of Care Reviewed With -- patient Plan of Care Review Progress progress towards functional goals is fair -- OUTCOME EVALUATION NOTE: OUTCOME SUMMARY: Assessment done and meds given per order. Pt. Up in chair during part of shift (tolerated well). Pt. In good spirits. Pt. Denied pain. PVR BS's were WNL and no straight cath needed. Metoprolol given per order. No events. Vitals stable. Safety maintained. PLAN MOVING FORWARD: Placement/ PT/OT INDIVIDUALIZED FALL PREVENTION INTERVENTIONS: Patient-specific fall risk factors per assessment: [current deficits]: High falls risk, hx. Of falls, hx of seizures Assistance [level of assistance required for transfers and ambulation]: 2 person assist w/ walker Supervision [direct monitoring required during toileting and ADLs]: Hands on Surveillance [continuous indirect monitoring]: Purposeful rounding, call morris in reach, bed alarm on, sitter at bedside Patient-specific fall prevention interventions for sensory deficits provided, if applicable: [X] N/A CPG GOAL OUTCOME EVALUATION: * Plan of Care - Shruti Lozoya RN - 12/17/2017 5:40 AM EDT Problem: Patient Care Overview Goal: Plan of Care Review Outcome: Ongoing (Interventions Implemented as Appropriate) 12/17/17 0523 Coping/Psychosocial Plan Of Care Reviewed With patient Plan of Care Review Progress progress towards functional goals is fair OUTCOME EVALUATION NOTE: OUTCOME SUMMARY: Pt admitted 09/02/17 after fall and subsequent L hip fx and repair. Pt stable overnight but increased agitation noted this shift. Multiple episodes of urinary incontinence this shift.Scheduled meds and PRN seroquel given as well as prn ibuprofen. Little noted effect. VSS. Sitter present at bedside. Will continue to monitor. PLAN MOVING FORWARD: Closely monitor VS, labs, assessments. Medicate as needed and as ordered. Inform MD of any changes. INDIVIDUALIZED FALL PREVENTION INTERVENTIONS: Patient-specific fall risk factors per assessment: [current deficits]: Weakness, altered mental status Assistance [level of assistance required for transfers and ambulation]: 1-2 assist for transfers and FWW for ambulation Supervision [direct monitoring required during toileting and ADLs]: Hands on if OOB for toileting, 1 assist for ADLs Surveillance [continuous indirect monitoring]: Hourly rounding, bed alarm, sitter at bedside Patient-specific fall prevention interventions for sensory deficits provided, if applicable: [X] Yes, call morris within easy reach, side rails up x 2-3, nonslip socks on if OOB, PT consult CPG GOAL OUTCOME EVALUATION: * Plan of Care - Mavis Richardson RN - 12/16/2017 4:05 PM EDT Problem: Patient Care Overview Goal: Plan of Care Review Outcome: Ongoing (Interventions Implemented as Appropriate) 12/16/17 0758 12/16/17 0830 Coping/Psychosocial Plan Of Care Reviewed With -- patient Plan of Care Review Progress progress towards functional goals is fair -- OUTCOME EVALUATION NOTE: OUTCOME SUMMARY: Assessment done and meds given per MD order. Sitter at bedside. NA WNL. Pt. Voiding w/out any problems. No straight cath needed and all PVR's <400ml. Scheduled tylenol and bengay given. Metoprololgiven in AM. Vitals stable. No events. Safety maintained. PLAN MOVING FORWARD: Placement INDIVIDUALIZED FALL PREVENTION INTERVENTIONS: Patient-specific fall risk factors per assessment: [current deficits]: High falls risk, IV, L fracture Assistance [level of assistance required for transfers and ambulation]: 2 person assist w/ walker Supervision [direct monitoring required during toileting and ADLs]: Hands on Surveillance [continuous indirect monitoring]: Purposeful rounding, call morris in reach, Bed alarm on, sitter at bedside Patient-specific fall prevention interventions for sensory deficits provided, if applicable: [X] N/A CPG GOAL OUTCOME EVALUATION: * Plan of Care - Shruti Lozoya RN - 12/16/2017 8:03 AM EDT Problem: Patient Care Overview Goal: Plan of Care Review Outcome: Ongoing (Interventions Implemented as Appropriate) 12/16/17 1105 Coping/Psychosocial Plan Of Care Reviewed With patient Plan of Care Review Progress progress towards functional goals is fair OUTCOME EVALUATION NOTE: OUTCOME SUMMARY: Pt admitted 09/02/17 with L fx, s/p repair. Pt stable overnight, minor agitation inevening noted. Pt took all meds without incident and slept well overnight. Pt continues to be incontinent of urine at times, also used urinal with assist overnight. VSS. Pt denies pain or discomfort when asked but given ibuprofen this AM in anticipation of walking and working with PT. Will continueto monitor. PLAN MOVING FORWARD: Closely monitor VS, labs, assessments. Medicate as needed and as ordered. Inform MD of any changes. INDIVIDUALIZED FALL PREVENTION INTERVENTIONS: Patient-specific fall risk factors per assessment: [current deficits]: Weakness, altered mental status, behavioral changes Assistance [level of assistance required for transfers and ambulation]: 2 assist OOB for transfers and ambulation, FWW Supervision [direct monitoring required during toileting and ADLs]: Hands on if OOB for toileting, 1 assist for ADLs Surveillance [continuous indirect monitoring]: Hourly rounding, bed alarm Patient-specific fall prevention interventions for sensory deficits provided, if applicable: [X] Yes, call morris within easy reach, side rails up x 2-3, nonslip socks on if OOB, PT consult CPG GOAL OUTCOME EVALUATION: * Plan of Care - Sarika Michael RN - 12/15/2017 10:46 PM EDT Problem: Patient Care Overview Goal: Plan of Care Review Outcome: Ongoing (Interventions Implemented as Appropriate) 12/15/17 0354 12/15/17 0845 Coping/Psychosocial Plan Of Care Reviewed With -- patient Plan of Care Review Progress progress towards functional goals is fair -- OUTCOME EVALUATION NOTE: OUTCOME SUMMARY: Pt alert to self and place. Frequently agitated and angry but able to be redirected with time, occasionally hitting staff. Vital signs stable except tachycardia and slight hypotension. Metoprolol started (see MAR). Ibuprofen given x1 in addition to scheduled tylenol for c/o leg pain. Pt up to toilet and continent of some urine, incontinent at other times. No BM today. Went to gym to work with PT on stairs, tolerated well. Good PO intake throughout day. Fluid restriction continues and sitter remains at bedside. PLAN MOVING FORWARD: D/c planning. Pain management. Continue to improve strength and mobility. INDIVIDUALIZED FALL PREVENTION INTERVENTIONS: Patient-specific fall risk factors per assessment: [current deficits]: Hx of falls, impaired mobility. Assistance [level of assistance required for transfers and ambulation]: 2 assist with walker. Supervision [direct monitoring required during toileting and ADLs]: Hands on. Surveillance [continuous indirect monitoring]: Hourly rounding, room near unit station, call morris within reach, sitter at bedside. Patient-specific fall prevention interventions for sensory deficits provided, if applicable: [X] N/A CPG GOAL OUTCOME EVALUATION: * Plan of Care - Shruti Lozoya RN - 12/15/2017 4:19 AM EDT Problem: Patient Care Overview Goal: Plan of Care Review Outcome: Ongoing (Interventions Implemented as Appropriate) 12/15/17 0354 Coping/Psychosocial Plan Of Care Reviewed With patient Plan of Care Review Progress progress towards functional goals is fair OUTCOME EVALUATION NOTE: OUTCOME SUMMARY:Pt admitted 09/02/17 with L hip fx after a fall. Pt s/p OR repair and is improving slowly. Pt agitated at start of shift, yelling out. Pt easily calms when talked to. Very short periods of agitation throughout shift. Incontinent of large amounts of urine overnight, bladder scan completed. No straight cath needed based on results. Oriented to self, , hospital but not current date or situation. Denies pain. Pt took all meds without issue. Sitter present at bedside. Will continue to monitor. 06 am bladder scan for 502 cc, pt able to spontaneously void 500 cc yellow urine. Will continue to monitor. PLAN MOVING FORWARD: Closely monitor VS, labs, assessments. Medicate as needed and as ordered. Straight cath as needed for urinary retention. Continue sitter at bedside. Inform MD of any changes. INDIVIDUALIZED FALL PREVENTION INTERVENTIONS: Patient-specific fall risk factors per assessment: [current deficits]: Altered mental status, weakness, pain Assistance [level of assistance required for transfers and ambulation]: 2 assist OOB for transfers and ambulation, FWW Supervision [direct monitoring required during toileting and ADLs]: Hands on if OOB for toileting, 1 assist for ADLs Surveillance [continuous indirect monitoring]: Hourly rounding, bed alarm Patient-specific fall prevention interventions for sensory deficits provided, if applicable: [X] Yes, call morris within easy reach, side rails up x 2-3, nonslip socks on if OOB, PT consult, FWW CPG GOAL OUTCOME EVALUATION: * Plan of Care - Sarika Michael RN - 12/14/2017 6:01 PM EDT Problem: Skin Integrity Impairment, Risk/Actual (Adult) Goal: Skin Integrity/Wound Healing Patient will demonstrate the desired outcomes by discharge/transition of care. Outcome: Ongoing (Interventions Implemented as Appropriate) 12/09/17 2324 Skin Integrity Impairment, Risk/Actual (Adult) Skin Integrity/Wound Healing making progress toward outcome OUTCOME EVALUATION NOTE: OUTCOME SUMMARY: AxOx2, disoriented to time and situation. VSS on room air. Agitated and restless but mostly cooperative with care. C/o pain to LLE and hip, adequate relief with scheduled tylenol. No straight caths required as PVR always <200. (see doc flow). Frequent incontinence care. No BM today. Pt up with 1-2 assist with walker. Out for walk with staff. Sitter remains at bedside. Good PO intake throughoutday. Attempting to have BMP drawn when pt is more relaxed. Will continue to monitor and page with any changes. PLAN MOVING FORWARD: Continue to monitor labs. Continue to monitor/manage pain. Improve strength and mobility. INDIVIDUALIZED FALL PREVENTION INTERVENTIONS: Patient-specific fall risk factors per assessment: [current deficits]: Hx of falls, impaired mobility. Assistance [level of assistance required for transfers and ambulation]: 2 assist with walker. Supervision [direct monitoring required during toileting and ADLs]: Hands on. Surveillance [continuous indirect monitoring]: Hourly rounding, room near unit station, call morris within reach, sitter at bedside. Patient-specific fall prevention interventions for sensory deficits provided, if applicable: [X] N/A CPG GOAL OUTCOME EVALUATION: * Plan of Care - Mariposa Harkins RN - 12/14/2017 1:23 AM EDT Images from the original note were not included. AM []Hide copied text Problem: Patient Care Overview Goal: Plan of Care Review Outcome: Ongoing (Interventions Implemented as Appropriate) ? 12/05/17 1701 12/12/17 0900 Coping/Psychosocial Plan Of Care Reviewed With -- patient Plan of Care Review Progress progress towards functional goals is fair -- ? OUTCOME EVALUATION NOTE: ? OUTCOME SUMMARY: Sitter at bedside, occasional calling out, but quiet and restful for most of the evening. Medications given without difficulty, VSS, bladder scanned for 667, SC for 775 clear yellow, patient tolerated well. Continue to monitor for changes. ? PLAN MOVING FORWARD: Pain management, 3.2 ltr fluid restriction ? INDIVIDUALIZED FALL PREVENTION INTERVENTIONS: ? Patient-specific fall risk factors per assessment: [current deficits]:?High fall risk, Blind, unfamiliar surroundings. ? Assistance [level of assistance required for transfers and ambulation]:?2 person assist with walker ? Supervision [direct monitoring required during toileting and ADLs]:?Hands on ? Surveillance [continuous indirect monitoring]:?Purposeful rounding, call morris in reach. Bed alarm on, sitter at bedside ? Patient-specific fall prevention interventions for sensory deficits provided, if applicable:?[X]N/A ? CPG GOAL OUTCOME EVALUATION:? * Plan of Care - Sarika Michael RN - 12/13/2017 6:42 PM EDT Problem: Patient Care Overview Goal: Infection Control Outcome: Ongoing (Interventions Implemented as Appropriate) 12/13/1748 12/13/17 7453 Coping Strategies Supportive Measures active listening utilized;decision-making supported;positive reinforcement provided;relaxation techniques promoted;self-responsibility promoted;verbalization of feelings encouraged -- Safety Interventions Isolation Precautions standard precautions maintained -- Infection Prevention -- personal protective equipment utilized;rest/sleep promoted;single patient room provided OUTCOME EVALUATION NOTE: OUTCOME SUMMARY: AxOx3, disoriented to time, agitated and restless but cooperative. VSS on room air, except elevatedBP and tachycardia when agitated. No c/o pain. Pt up to chair and into wheelchair with 2 assist multiple times throughout day, ambulating 15 ft. Pt requiring 1 straight cath, 2 large episodes of incontinence (see doc flow for PVRs). Large BM today. Good PO intake. Fluid restriction and measurementsin flowsheet. Sitter remains at bedside. Will continue to monitor and page with any changes. PLAN MOVING FORWARD: Continue to improve strength and mobility. Maintain safety. D/c planning INDIVIDUALIZED FALL PREVENTION INTERVENTIONS: Patient-specific fall risk factors per assessment: [current deficits]: Hx of falls, impaired mobility. Assistance [level of assistance required for transfers and ambulation]: 2 assist Supervision [direct monitoring required during toileting and ADLs]: Hands on. Surveillance [continuous indirect monitoring]: Hourly rounding, room near unit station, call morris within reach, bed alarm set, sitter at bedside. Patient-specific fall prevention interventions for sensory deficits provided, if applicable: [X] N/A CPG GOAL OUTCOME EVALUATION: * Plan of Care - Pili Adkins RN - 12/13/2017 2:05 AM EDT Problem: Patient Care Overview Goal: Plan of Care Review Outcome: Ongoing (Interventions Implemented as Appropriate) 12/05/17 1701 12/13/17 0108 Coping/Psychosocial Plan Of Care Reviewed With -- patient Plan of Care Review Progress progress towards functional goals is fair -- OUTCOME EVALUATION NOTE: OUTCOME SUMMARY: Alert, oriented X 3, disoriented to time (blind at baseline), continues to interact with staff. VSS. No cardiac or respiratory issues during shift. Medications given per orders, see MAR. No pain reported. Sitter remains at bedside. Pt resting in between care in room. No further events. Will continue to monitor. PLAN MOVING FORWARD: Vital signs, medications, sitter at bedside INDIVIDUALIZED FALL PREVENTION INTERVENTIONS: Patient-specific fall risk factors per assessment: [current deficits]: Medications, confusion Assistance [level of assistance required for transfers and ambulation]: Heavy 2 assist Supervision [direct monitoring required during toileting and ADLs]: Hands on, eyes on Surveillance [continuous indirect monitoring]: Sitter at bedside, bed alarm, call morris within reach, frequent purposeful rounding, single pt room near nursing station Patient-specific fall prevention interventions for sensory deficits provided, if applicable: Yes CPG GOAL OUTCOME EVALUATION: * Plan of Care - Milady Gabriel RN - 12/12/2017 4:40 PM EDT Problem: Patient Care Overview Goal: Plan of Care Review Outcome: Ongoing (Interventions Implemented as Appropriate) 12/05/17 1701 12/12/17 1109 Coping/Psychosocial Plan Of Care Reviewed With -- patient Plan of Care Review Progress progress towards functional goals is fair -- OUTCOME EVALUATION NOTE: OUTCOME SUMMARY: A&Ox3, disoriented to time (pt blind at baseline). 2 assist OOB. No c/o pain. VSS, on RA. Pt has been appropriate all day, interacting with staff, answering questions appropriately. 1:1 sitter continues at bedside. Pt currently resting in bed, safety maintained. PLAN MOVING FORWARD: Placement, 1:1 sitter INDIVIDUALIZED FALL PREVENTION INTERVENTIONS: Patient-specific fall risk factors per assessment: [current deficits]: Generalized weakness, impaired mobility Assistance [level of assistance required for transfers and ambulation]: 2 assist Supervision [direct monitoring required during toileting and ADLs]: Hands on Surveillance [continuous indirect monitoring]: Purposeful rounding, safety checks, call morris withinreach Patient-specific fall prevention interventions for sensory deficits provided, if applicable: [X] Yes CPG GOAL OUTCOME EVALUATION: * Plan of Care - Mariposa Harkins RN - 12/12/2017 1:39 AM EDT Problem: Patient Care Overview Goal: Plan of Care Review Outcome: Ongoing (Interventions Implemented as Appropriate) ?? 12/05/17 1701 12/12/17 0900 Coping/Psychosocial Plan Of Care Reviewed With -- patient Plan of Care Review Progress progress towards functional goals is fair -- ?? OUTCOME EVALUATION NOTE: ?? OUTCOME SUMMARY: Sitter at bedside, occasional calling out, but quiet and restful for most of the evening. Medications given without difficulty, VSS, bladder scans with low PVR, continue to monitor for changes. ?? PLAN MOVING FORWARD: Pain management, 3.2 ltr fluid restriction ?? INDIVIDUALIZED FALL PREVENTION INTERVENTIONS: ?? Patient-specific fall risk factors per assessment: [current deficits]: High fall risk, Blind, unfamiliar surroundings. ?? Assistance [level of assistance required for transfers and ambulation]: 2 person assist with walker ?? Supervision [direct monitoring required during toileting and ADLs]: Hands on ?? Surveillance [continuous indirect monitoring]: Purposeful rounding, call morris in reach. Bed alarm on, sitter at bedside ?? Patient-specific fall prevention interventions for sensory deficits provided, if applicable: [X] N/A ? CPG GOAL OUTCOME EVALUATION: ?? * Plan of Care - Mavis Richardson RN - 12/11/2017 4:39 PM EDT Problem: Patient Care Overview Goal: Plan of Care Review Outcome: Ongoing (Interventions Implemented as Appropriate) 12/05/17 1701 12/11/17 0900 Coping/Psychosocial Plan Of Care Reviewed With -- patient Plan of Care Review Progress progress towards functional goals is fair -- OUTCOME EVALUATION NOTE: OUTCOME SUMMARY: Assessment done and meds given per order. Pt. BS per order and voiding without needing straight cath today. Sitter at bedside. Pt. Went outside with sitter and facility person to get some fresh air. Pt. Denied pain. No events. Safety maintained. Pt. Had a very good day! PLAN MOVING FORWARD: BS/ Pain management/ PT/fluid restriction INDIVIDUALIZED FALL PREVENTION INTERVENTIONS: Patient-specific fall risk factors per assessment: [current deficits]: High falls risk, hx of seizures, hx of fall. Assistance [level of assistance required for transfers and ambulation]: 2 person assist with walker Supervision [direct monitoring required during toileting and ADLs]: Hands on Surveillance [continuous indirect monitoring]: Purposeful rounding, call morris in reach. Bed alarm on, sitter at bedside Patient-specific fall prevention interventions for sensory deficits provided, if applicable: [X] N/A CPG GOAL OUTCOME EVALUATION: * Consult Note - Aniket Anders RN - 12/11/2017 2:40 PM EDT Certified Wound Care Nurse Rounding Note Rounded on patient, discussed patient with RN. Reviewed assessment of all bony prominences and under devices for pressure ulcer development, ability to turn/reposition and if there are any barriers due to patient condition for routine care, turning schedules and or pressure ulcer prevention. Issues/concerns identified: None. Patient ambulates, uses a wheelchair to go outside, mobile. Current Wound Care Recommendations in place/reviewed? Following hospital standard for pressure ulcer prevention. Refer to adult pressure ulcer prevention job aid in the clinical policy library. Follow up: Wound Care Services will complete the consult at this time. If there are further issues please re-consult via [facility]D-[facility]. RN verbalized understanding and denied any skin/wound care issues. Discussed with RN: Mavis Richardson * Plan of Care - Rony De La Fuente RN - 12/11/2017 4:55 AM EDT Problem: Patient Care Overview Goal: Plan of Care Review Outcome: Ongoing (Interventions Implemented as Appropriate) 12/05/17 1701 12/10/172006 Coping/Psychosocial Plan Of Care Reviewed With -- patient Plan of Care Review Progress progress towards functional goals is fair -- OUTCOME EVALUATION NOTE: OUTCOME SUMMARY: Pt resting comfortably in bed intermittently moaning and calling out. Pt reports feeling awesome when asked. Pt offered urinal every 2-4 hours depending on sleep. Pt voiding adequate amounts when offered, with small PVRs noticed after. 1:1 sitter maintained during the night. Pt otherwise without major change or complaint. PLAN MOVING FORWARD: Work with therapy, continue to attempt stairs. INDIVIDUALIZED FALL PREVENTION INTERVENTIONS: Patient-specific fall risk factors per assessment: [current deficits]: Cog impairments, impulsive, Assistance [level of assistance required for transfers and ambulation]: 1a walker Supervision [direct monitoring required during toileting and ADLs]: Hands on Surveillance [continuous indirect monitoring]: 1:1 sitter, bed alarm, Patient-specific fall prevention interventions for sensory deficits provided, if applicable: [X] Yes CPG GOAL OUTCOME EVALUATION: Goal: Individualization & Mutuality Outcome: Ongoing (Interventions Implemented as Appropriate) 10/17/17 1745 11/05/17 0354 11/18/17 0546 Individualization Patient Specific Preferences -- sitter at bedside, cluster care -- Patient Specific Goals -- maintain safety plan, limit interuptions -- Patient Specific Interventions -- -- -- Mutuality/Individual Preferences What Anxieties, Fears or Concerns Do You Have About Your Health or Care? ISHAAN -- -- What Questions Do You Have About Your Health or Care? ISHAAN -- -- What Information Would Help Us Give You More Personalized Care? -- -- Sister, Bettina, is his guardian 12/04/17 0608 Individualization Patient Specific Preferences -- Patient Specific Goals -- Patient Specific Interventions continue 3200 ml fluid allowance as per orders Mutuality/Individual Preferences What Anxieties, Fears or Concerns Do You Have About Your Health or Care? -- What Questions Do You Have About Your Health or Care? -- What Information Would Help Us Give You More Personalized Care? -- Goal: Fall Prevention-Safe Patient Handling Outcome: Ongoing (Interventions Implemented as Appropriate) 12/08/17199912/10/17200612/11/17 0300 Restraint Interventions Safety Promotion/Fall Prevention -- -- activity supervised;nonskid shoes/slippers when out of bed;safety round/check completed Activity Activity Type -- -- activity adjusted per tolerance Activity Assistance Provided -- -- assistance, 2 people Assistive Device Utilized -- -- standard walker Positioning Body Position -- -- independent Daily Care Interventions Self-Care Promotion independence encouraged;BADL personal objects within reach;BADL personal routines maintained -- -- [place] Fall Risk History of Falling -- 25 -- Secondary Diagnosis -- 15 -- Ambulatory Aids -- 15 -- Intravenous Therapy/Heparin/Saline Lock -- 0 -- Gait/Transferring -- 10 -- Mental Status -- 15 -- Score -- 80 -- OTHER [place] Fall Risk -- High -- Goal: Infection Control Outcome: Ongoing (Interventions Implemented as Appropriate) 12/10/17 0812/11/17 0300 Coping Strategies Supportive Measures active listening utilized;positive reinforcement provided;problem solving facilitated;relaxation techniques promoted;self-care encouraged;self-reflection promoted;self-responsibility promoted;verbalization of feelings encouraged -- Safety Interventions Isolation Precautions -- standard precautions maintained Infection Prevention -- single patient room provided * Plan of Care - Mavis Richardson RN - 12/10/2017 2:51 PM EDT Problem: Patient Care Overview Goal: Plan of Care Review Outcome: Ongoing (Interventions Implemented as Appropriate) 12/05/17 1701 12/10/17 1145 Coping/Psychosocial Plan Of Care Reviewed With -- patient Plan of Care Review Progress progress towards functional goals is fair -- OUTCOME EVALUATION NOTE: OUTCOME SUMMARY: Assessment done and meds given per MD order. BS q6hrs was done and showed 999ml. Straight cath was unsuccessful d/t possible swollen prostate. MD aware we were unable to straight cath and asked RN fatmatat one hour and try to get pt. To void. Pt. Able to void and put out >1000. UA sent (see results review). Will BS again around 1700 per order. PT brought pt. Up to gym to work with him (tolerated well). Vitals stable. Safety maintained. Pt. Resting comfortably in bed. PLAN MOVING FORWARD: PT/ BS INDIVIDUALIZED FALL PREVENTION INTERVENTIONS: Patient-specific fall risk factors per assessment: [current deficits]: High falls risk, L acetabular fracture, hx of seizures. Assistance [level of assistance required for transfers and ambulation]: 2 person assist w/ walker Supervision [direct monitoring required during toileting and ADLs]: Hands on/ sitter at bedside Surveillance [continuous indirect monitoring]: Purposeful rounding, call morris in reach, bed alarm on Patient-specific fall prevention interventions for sensory deficits provided, if applicable: [X] N/A CPG GOAL OUTCOME EVALUATION: * Plan of Care - Louis Doran PTA - 12/10/2017 11:45 AM EDT Physical Therapy Treatment Treatment Number PT: 15 Pertinent History of Current Problem: Pt is a 27 yo man with a history of resection of pituitary tumor, intraoperative hemorrhage and CVA, cognitive impairment, cortical blindness, partial L sided paralysis, seizure disorder, and panhypopituitarism (with DI, adrenal insufficiency, hypothyroidism, hy pogonadism) here with a left acetabular fracture that occurred in the setting of a possible seizure. Precautions/Restrictions: fall, weight bearing Precautions Comments: WBAT L LE Assessment: Pt seen for functional mobility, strength, endurance and pt education. Able to negotiate a step in the // bars with relative ease, slightly impulsive Min A x 2. Performed 4 stairs with Mod A x 2, railings were wide, increased pain, cues for sequencing but pt did his own thing anyway. Slowly making progress with mobility however pt continues to not fully weight bear on L LE, frequent cues during gait to increase weight bearing. Mostly appropriate during therapy with occasional doffing of gown, agreeable to putting it back on and continuing mobility. Please see the flow sheet below for patient details and mobility. Pt would benefit from ongoing physical therapy interventions. Staff Mobility Recommendations: Stand pivot transfer and short distance ambulation with FWW and 1-2assist Anticipated Discharge Disposition: half-way facility (could go to handicap accesible nursing home with assistance) LOUIS DORAN PTA Pager: [phone] Inpatient Physical Therapy 12/10/17 1145 Rehab Evaluation Document Type therapy note (daily note) Total Evaluation Minutes, Physical Therapy 45 (TE-F x 3) Patient Effort good Symptoms Noted During/After Treatment fatigue General Information General Observations of Patient Appropriate behavior for the first half of session, following directions well. Second half pt pulling off gown repeatedly with mild agitation. Able to calm down and became more appropriate again before becoming tired from exertion Pertinent History of Current Problem Pt is a 27 yo man with a history of resection of pituitary tumor, intraoperative hemorrhage and CVA, cognitive impairment, cortical blindness, partial L sided paralysis, seizure disorder, and panhypopituitarism (with DI, adrenal insufficiency, hypothyroidism, hyp ogonadism) here with a left acetabular fracture that occurred in the setting of a possible seizure. Precautions/Restrictions fall;weight bearing Precautions Comments WBAT L LE Treatment Number PT 15 Pain Scale/Rating Pain Assessment Scale Word (verbal rating pain scale) Pain Level (Appeared to have pain when attempting stairs) Bed Mobility Assessment/Treatment Casujl-pi-Jkf [place] (Bed Mobility) supervision required Comment (Bed Mobility) extra time required Transfer Assessment/Treatment Bed-Chair [place] (Transfers) minimum assist (75% patient effort) Xgc-Jiuam-Lge Assistive Device (Transfers) rolling walker [place] (Sit-Stand Transfers) supervision required [place] (Stand-Sit Transfers) supervision required Ixs-Ikotp-Wjn Assistive Device (Transfers) rolling walker Safety Issues (Transfers) balance decreased during turns;sequencing ability decreased;step length decreased;weight-shifting ability decreased Impairments (Transfers) balance impaired;strength decreased;vision impaired Comment (Transfers) assist for walker management when turning, cues to place L LE flat on the floor Gait Assessment/Treatment [place] (Gait) contact guard assist Assistive Device (Gait) rolling walker Distance in Feet (Gait) 50 ft Gait Pattern Analysis swing-to gait Deviations (Gait) carmen decreased;step length decreased Maintain Weight Bearing Status (Gait) cues to maintain weight bearing status Safety Issues (Gait) balance decreased during turns;sequencing ability decreased;step length decreased;weight-shifting ability decreased Impairments (Gait) balance impaired;strength decreased Comment (Gait) Steady gait with cues for increased weight bearing on L LE, chair follow provided Stairs Assessment/Treatment Number of Stairs (Stairs) 1 platform step x 4, 4 stairs x 1 Handrail Location (Stairs) both sides [place] (Stairs) moderate assist (50% patient effort);2 person assist required Safety Issues (Stairs) balance decreased during turns;weight-shifting ability decreased Impairments (Stairs) balance impaired;strength decreased Comment (Stairs) Able to manage one step in the // bars with Min A x 2. Climbed 4 stairs in gym with Mod A x 2, pt with increased pain, cues provided for sequencing however pt ended up going up and down step over step at times Wheelchair Training/Management Propulsion Training (Wheelchair) forward propulsion;steering wheelchair Propulsion Training Comment (Wheelchair) used voice in front of pt to assist pt in steering Distance Propelled in Feet (Wheelchair) 50 ft Training Comment (Wheelchair) several rest breaks Safety Comment (Wheelchair) extra time required Plan of Care Review Plan Of Care Reviewed With patient Bed Mobility Goal Bed Mobility Goal, Date Established 09/09/17 Bed Mobility Goal, Time to Achieve by discharge Bed Mobility Goal, Activity Type all bed mobility activities Bed Mobility Goal, [place] Level moderate assist (50% patient effort) Bed Mobility Goal, Outcome Achieved goal ongoing Gait Training Goal Gait Training Goal, Date Established 09/09/17 Gait Training Goal, Time to Achieve by discharge Gait Training Goal, [place] Level minimum assist (75% patient effort) Gait Training Goal, Assist Device walker, rolling Gait Training Goal, Distance to Achieve 15 ft Gait Training Goal, Outcome goal met Transfer Training Goal Transfer Training Goal, Date Established 09/09/17 Transfer Training Goal, Time to Achieve by discharge Transfer Training Goal, Activity Type gso-in-mldec/xozmp-sa-ftd;cuc-hl-azddq/hbgyt-bn-ruo Transfer Train Goal, [place] Level minimum assist (75% patient effort) Transfer Training Goal, Assist Device walker, rolling Transfer Training Goal, Outcome goal ongoing Physical Therapy Goal PT Goal, Date Established 09/09/17 PT Goal, Time to Achieve by discharge PT Goal, Activity Type Pt will propel self in w/c household distances PT Goal, [place] Level set up required;supervision required PT Goal, Outcome goal ongoing Clinical Impression Therapy Frequency 2-4 times/wk Anticipated Equipment Needs at Discharge front wheeled walker Anticipated Discharge Disposition half-way facility (could go to handicap accesible nursing home with assistance) * Plan of Care - Lori Pepe RN - 12/09/2017 11:34 PM EDT Problem: Patient Care Overview Goal: Plan of Care Review Outcome: Ongoing (Interventions Implemented as Appropriate) 12/05/17 17012/09/172055 Coping/Psychosocial Plan Of Care Reviewed With -- patient Plan of Care Review Progress progress towards functional goals is fair -- OUTCOME EVALUATION NOTE: OUTCOME SUMMARY: Patient is alert, oriented X3, disoriented to time. No reports of pain. Took PO medications with ease. Sitter remains at bedside. Frequently calling out but sleeping during shift and between care. Massage and music therapy provided for relaxation strategies with positive effect. Using urinal at times as well as episodes of incontinence, bladder scanned for PVR with no significant findings. No acute events. Will continue to monitor. PLAN MOVING FORWARD: Increase ambulation Stairs with PT Bedside sitter INDIVIDUALIZED FALL PREVENTION INTERVENTIONS: Patient-specific fall risk factors per assessment: [current deficits]: Weakness, high fall risk, cognitive impairment, blind Assistance [level of assistance required for transfers and ambulation]: Heavy 2-assist Supervision [direct monitoring required during toileting and ADLs]: Hands on Surveillance [continuous indirect monitoring]: Purposeful rounding, call morris in reach, room near nurses station Patient-specific fall prevention interventions for sensory deficits provided, if applicable: [X] No CPG GOAL OUTCOME EVALUATION: Goal: Individualization & Mutuality Outcome: Ongoing (Interventions Implemented as Appropriate) 10/17/17 1745 11/05/17 0354 11/18/17 0546 Individualization Patient Specific Preferences -- sitter at bedside, cluster care -- Patient Specific Goals -- maintain safety plan, limit interuptions -- Patient Specific Interventions -- -- -- Mutuality/Individual Preferences What Anxieties, Fears or Concerns Do You Have About Your Health or Care? ISHAAN -- -- What Questions Do You Have About Your Health or Care? ISHAAN -- -- What Information Would Help Us Give You More Personalized Care? -- -- SisterBettina, is his guardian 12/04/17 0608 Individualization Patient Specific Preferences -- Patient Specific Goals -- Patient Specific Interventions continue 3200 ml fluid allowance as per orders Mutuality/Individual Preferences What Anxieties, Fears or Concerns Do You Have About Your Health or Care? -- What Questions Do You Have About Your Health or Care? -- What Information Would Help Us Give You More Personalized Care? -- Goal: Fall Prevention-Safe Patient Handling Outcome: Ongoing (Interventions Implemented as Appropriate) 12/08/17199912/09/17199912/09/172055 Restraint Interventions Safety Promotion/Fall Prevention -- fall prevention program maintained;nonskid shoes/slippers when out of bed;safety round/check completed -- Activity Activity Type -- -- activity adjusted per tolerance;dorsiflexion, plantar flexion encouraged;ROM, active encouraged Activity Assistance Provided -- -- assistance, 2 people Assistive Device Utilized -- -- none Positioning Body Position -- independent -- Daily Care Interventions Self-Care Promotion independence encouraged;BADL personal objects within reach;BADL personal routines maintained -- -- [place] Fall Risk History of Falling -- -- 25 Secondary Diagnosis -- -- 15 Ambulatory Aids -- -- 15 Intravenous Therapy/Heparin/Saline Lock -- -- 0 Gait/Transferring -- -- 10 Mental Status -- -- 15 Score -- -- 80 OTHER [place] Fall Risk -- -- High Goal: Infection Control Outcome: Ongoing (Interventions Implemented as Appropriate) 12/09/17199912/09/172055 Coping Strategies Supportive Measures -- active listening utilized;guided imagery facilitated;self-care encouraged;self-responsibility promoted;verbalization of feelings encouraged;relaxation techniques promoted Safety Interventions Isolation Precautions standard precautions maintained -- Infection Prevention rest/sleep promoted -- Goal: Discharge Needs Assessment Outcome: Ongoing (Interventions Implemented as Appropriate) 11/23/172134 Discharge Needs Assessment Concerns To Be Addressed adjustment to diagnosis/illness concerns;basic needs concerns;care coordination/care conferences;cognitive/perceptual concerns;discharge planning concerns;home safety concerns Readmission Within The Last 30 Days no previous admission in last 30 days Provider Choice List(s) Given no Equipment Needed After Discharge walker, rolling;commode;wheelchair Discharge Facility/Level Of Care Needs assisted living facility;rehabilitation facility;nursing facility, skilled;nursing facility, basic;adult foster care/nursing home Current Discharge Risk chronically ill;cognitively impaired;dependent with mobility/activities of daily living;physical impairment Discharge Disposition still a patient Current Health Outpatient/Agency/Support Group Needs assisted living facility (specify);half-way facility (specify);supervisor long goods acute care facility (specify);nursing home (specify) Anticipated Changes Related to Illness none Living Environment Transportation Available family or friend will provide;ambulance;van, wheelchair accessible Activity/Self Care Review of Systems Equipment Currently Used at Home none Goal: Interdisciplinary Rounds/Family Conf Outcome: Ongoing (Interventions Implemented as Appropriate) 12/09/172323 Interdisciplinary Rounds/Family Conf Participants patient;nursing Problem: Skin Integrity Impairment, Risk/Actual (Adult) Goal: Skin Integrity/Wound Healing Patient will demonstrate the desired outcomes by discharge/transition of care. Outcome: Ongoing (Interventions Implemented as Appropriate) 12/09/172323 Skin Integrity Impairment, Risk/Actual (Adult) Skin Integrity/Wound Healing making progress toward outcome Problem: Thought Process Alteration (Adult) Goal: Improved Thought Process Patient will demonstrate the desired outcomes by discharge/transition of care. Outcome: Ongoing (Interventions Implemented as Appropriate) 12/09/172323 Thought Process Alteration (Adult) Improved Thought Process making progress toward outcome Problem: Fluid Volume Excess (Adult,Obstetrics,Pediatric) Goal: Stable Weight Patient will demonstrate the desired outcomes by discharge/transition of care. Outcome: Ongoing (Interventions Implemented as Appropriate) 12/09/172323 Fluid Volume Excess (Adult,Obstetrics,Pediatric) Stable Weight making progress toward outcome Goal: Balanced Intake/Output Patient will demonstrate the desired outcomes by discharge/transition of care. Outcome: Ongoing (Interventions Implemented as Appropriate) 12/09/172323 Fluid Volume Excess (Adult,Obstetrics,Pediatric) Balanced Intake/Output making progress toward outcome * Plan of Care - Mavis Richardson RN - 12/09/2017 3:53 PM EDT Problem: Patient Care Overview Goal: Plan of Care Review Outcome: Ongoing (Interventions Implemented as Appropriate) 12/05/17 1701 12/09/17 0830 Coping/Psychosocial Plan Of Care Reviewed With -- patient Plan of Care Review Progress progress towards functional goals is fair -- OUTCOME EVALUATION NOTE: OUTCOME SUMMARY: Assessment done and meds given per order. Pt. Unable to void in AM (MD smith). BS showed 855ml and straight cath was attempted. Prostate seems inflamed and was difficult to straight cath but 1,050ml came out. Pt. Was less agitated post straight cath. No PRN meds needed. Scheduled tylenol and ibuprofen given and bengay. New orders for measuring PVR q6hrs and attempting to get pt. To void q3- 4hrs were placed. Sitter at bedside. Safety maintained. Around 1600 the pt. Voided a large amount and PVR per bladder scanner was 0ml. PLAN MOVING FORWARD: PT/OT/ BS and straight cath PRN. INDIVIDUALIZED FALL PREVENTION INTERVENTIONS: Patient-specific fall risk factors per assessment: [current deficits]: High falls risk, L fracture,L sided CVA Assistance [level of assistance required for transfers and ambulation]: 2 person assist Supervision [direct monitoring required during toileting and ADLs]: Hands on Surveillance [continuous indirect monitoring]: Purposeful rounding, call morris in reach, bed alarm on Patient-specific fall prevention interventions for sensory deficits provided, if applicable: [X] N/A CPG GOAL OUTCOME EVALUATION: * Plan of Care - Lori Pepe RN - 12/09/2017 12:30 AM EDT Problem: Patient Care Overview Goal: Plan of Care Review Outcome: Ongoing (Interventions Implemented as Appropriate) 12/05/17 1701 12/08/17 1953 Coping/Psychosocial Plan Of Care Reviewed With -- patient Plan of Care Review Progress progress towards functional goals is fair -- OUTCOME EVALUATION NOTE: OUTCOME SUMMARY: Patient is alert, oriented X4 at beginning of shift. No complaints of pain. Sitter remains at bedside. Intermittently calling out, calmed with music and massage. Sleeping between care, cooperative with vital signs and care this shift. Incontinent at times but also able to express the need to void and using urinal at times. Bladder scan at 0630 showed, unable to straight cath despite using coude catheter. Night SUPPLY CHAIN DEVELOPMENT MANAGER Marya paged, will pass along to day team and have day RN attempt. If still unable,urology may be paged for further catheterization. Will continue to monitor. PLAN MOVING FORWARD: Bedside sitter Increase ambulation Stairs with PT INDIVIDUALIZED FALL PREVENTION INTERVENTIONS: Patient-specific fall risk factors per assessment: [current deficits]: Weakness, fall history, confusion Assistance [level of assistance required for transfers and ambulation]: Heavy 2-assist Supervision [direct monitoring required during toileting and ADLs]: Hands on Surveillance [continuous indirect monitoring]: Purposeful rounding, call morris in reach, room near nurses station Patient-specific fall prevention interventions for sensory deficits provided, if applicable: [X] No CPG GOAL OUTCOME EVALUATION: Goal: Individualization & Mutuality Outcome: Ongoing (Interventions Implemented as Appropriate) 10/17/17 1745 11/05/17 0354 11/18/17 0546 Individualization Patient Specific Preferences -- sitter at bedside, cluster care -- Patient Specific Goals -- maintain safety plan, limit interuptions -- Patient Specific Interventions -- -- -- Mutuality/Individual Preferences What Anxieties, Fears or Concerns Do You Have About Your Health or Care? ISHAAN -- -- What Questions Do You Have About Your Health or Care? ISHAAN -- -- What Information Would Help Us Give You More Personalized Care? -- -- Sister, Bettina, is his guardian 12/04/17 0608 Individualization Patient Specific Preferences -- Patient Specific Goals -- Patient Specific Interventions continue 3200 ml fluid allowance as per orders Mutuality/Individual Preferences What Anxieties, Fears or Concerns Do You Have About Your Health or Care? -- What Questions Do You Have About Your Health or Care? -- What Information Would Help Us Give You More Personalized Care? -- Goal: Fall Prevention-Safe Patient Handling Outcome: Ongoing (Interventions Implemented as Appropriate) 12/08/17 0712/08/17199912/08/17 2200 Restraint Interventions Safety Promotion/Fall Prevention -- -- fall prevention program maintained;nonskid shoes/slippers when out of bed;safety round/check completed Activity Activity Type -- activity adjusted per tolerance -- Activity Assistance Provided -- assistance, 1 person -- Assistive Device Utilized wheelchair -- -- Positioning Body Position -- -- independent Daily Care Interventions Self-Care Promotion -- independence encouraged;BADL personal objects within reach;BADL personal routines maintained -- [place] Fall Risk History of Falling -- 25 -- Secondary Diagnosis -- 15 -- Ambulatory Aids -- 15 -- Intravenous Therapy/Heparin/Saline Lock -- 0 -- Gait/Transferring -- 10 -- Mental Status -- 15 -- Score -- 80 -- OTHER [place] Fall Risk -- High -- Goal: Infection Control Outcome: Ongoing (Interventions Implemented as Appropriate) 12/08/17195212/08/172199 Coping Strategies Supportive Measures active listening utilized;decision-making supported;positive reinforcement provided;relaxation techniques promoted;self-care encouraged;self-responsibility promoted;verbalization of feelings encouraged -- Safety Interventions Isolation Precautions -- standard precautions maintained Infection Prevention -- rest/sleep promoted Goal: Discharge Needs Assessment Outcome: Ongoing (Interventions Implemented as Appropriate) 11/23/17 213 Discharge Needs Assessment Concerns To Be Addressed adjustment to diagnosis/illness concerns;basic needs concerns;care coordination/care conferences;cognitive/perceptual concerns;discharge planning concerns;home safety concerns Readmission Within The Last 30 Days no previous admission in last 30 days Provider Choice List(s) Given no Equipment Needed After Discharge walker, rolling;commode;wheelchair Discharge Facility/Level Of Care Needs assisted living facility;rehabilitation facility;nursing facility, skilled;nursing facility, basic;adult foster care/nursing home Current Discharge Risk chronically ill;cognitively impaired;dependent with mobility/activities of daily living;physical impairment Discharge Disposition still a patient Current Health Outpatient/Agency/Support Group Needs assisted living facility (specify);half-way facility (specify);[facility] acute care facility (specify);nursing home (specify) Anticipated Changes Related to Illness none Living Environment Transportation Available family or friend will provide;ambulance;van, wheelchair accessible Activity/Self Care Review of Systems Equipment Currently Used at Home none Goal: Interdisciplinary Rounds/Family Conf Outcome: Ongoing (Interventions Implemented as Appropriate) 11/27/17 0058 Interdisciplinary Rounds/Family Conf Participants nursing;patient Problem: Skin Integrity Impairment, Risk/Actual (Adult) Goal: Skin Integrity/Wound Healing Patient will demonstrate the desired outcomes by discharge/transition of care. Outcome: Ongoing (Interventions Implemented as Appropriate) 12/09/17 0004 Skin Integrity Impairment, Risk/Actual (Adult) Skin Integrity/Wound Healing making progress toward outcome Problem: Thought Process Alteration (Adult) Goal: Improved Thought Process Patient will demonstrate the desired outcomes by discharge/transition of care. Outcome: Ongoing (Interventions Implemented as Appropriate) 12/09/17 0004 Thought Process Alteration (Adult) Improved Thought Process making progress toward outcome Problem: Fluid Volume Excess (Adult,Obstetrics,Pediatric) Goal: Stable Weight Patient will demonstrate the desired outcomes by discharge/transition of care. Outcome: Ongoing (Interventions Implemented as Appropriate) 12/09/17 0004 Fluid Volume Excess (Adult,Obstetrics,Pediatric) Stable Weight making progress toward outcome Goal: Balanced Intake/Output Patient will demonstrate the desired outcomes by discharge/transition of care. Outcome: Ongoing (Interventions Implemented as Appropriate) 12/09/17 0004 Fluid Volume Excess (Adult,Obstetrics,Pediatric) Balanced Intake/Output making progress toward outcome * Plan of Care - Lori Dunham RN - 12/08/2017 2:35 PM EDT Problem: Patient Care Overview Goal: Plan of Care Review Outcome: Ongoing (Interventions Implemented as Appropriate) 12/05/17 1701 12/08/17 0720 Coping/Psychosocial Plan Of Care Reviewed With -- patient Plan of Care Review Progress progress towards functional goals is fair -- OUTCOME EVALUATION NOTE: ?? OUTCOME SUMMARY: A&Ox3. Disoriented to time. Frequently yelling, able to communicate needs and cooperate with staff. Incontinent of urine and stool multiple times throughout shift. Frequently saying I'm hungry and more, more, more immediately after meals. Healthy snacks are frequently encouraged and offered. Fluid restriction closely monitored. Sitter and home care manager remained at beside throughout shift. No acute events. Will continue to monitor. ? PLAN MOVING FORWARD: Increase mobility with PT., continue to trend sodium, monitor fluid restriction ?? INDIVIDUALIZED FALL PREVENTION INTERVENTIONS: ?? Patient-specific fall risk factors per assessment: [current deficits]: AMS, history of falls ?? Assistance [level of assistance required for transfers and ambulation]: Hands on ?? Supervision [direct monitoring required during toileting and ADLs]: 2 assist ?? Surveillance [continuous indirect monitoring]: Room near RN station, masimo, sitter at bedside ?? Patient-specific fall prevention interventions for sensory deficits provided, if applicable: [X] N/A ? CPG GOAL OUTCOME EVALUATION: * Plan of Care - Lori Pepe RN - 12/08/2017 12:53 AM EDT Problem: Patient Care Overview Goal: Plan of Care Review Outcome: Ongoing (Interventions Implemented as Appropriate) 12/05/17 1701 12/07/172033 Coping/Psychosocial Plan Of Care Reviewed With -- patient Plan of Care Review Progress progress towards functional goals is fair -- OUTCOME EVALUATION NOTE: OUTCOME SUMMARY: Patient is alert, refused to answer orientation questions this shift. No reports of pain. Assessment as documented and medications given per orders. Patient continues to call out intermittently, bedside sitter remains. Incontinent of urine. Safety maintained. No acute events. Will continue to monitor. PLAN MOVING FORWARD: Increase ambulation, ambulate with stairs INDIVIDUALIZED FALL PREVENTION INTERVENTIONS: Patient-specific fall risk factors per assessment: [current deficits]: AMS, high fall risk, historyof falls, visual deficits Assistance [level of assistance required for transfers and ambulation]: 2-assist Supervision [direct monitoring required during toileting and ADLs]: Hands on Surveillance [continuous indirect monitoring]: Purposeful rounding, call morris in reach, room near nurses station Patient-specific fall prevention interventions for sensory deficits provided, if applicable: [X] No CPG GOAL OUTCOME EVALUATION: Goal: Individualization & Mutuality Outcome: Ongoing (Interventions Implemented as Appropriate) 10/17/17 1745 11/05/17 0354 11/18/17 0546 Individualization Patient Specific Preferences -- sitter at bedside, cluster care -- Patient Specific Goals -- maintain safety plan, limit interuptions -- Patient Specific Interventions -- -- -- Mutuality/Individual Preferences What Anxieties, Fears or Concerns Do You Have About Your Health or Care? ISHAAN -- -- What Questions Do You Have About Your Health or Care? ISHAAN -- -- What Information Would Help Us Give You More Personalized Care? -- -- Sister, Bettina, is his guardian 12/04/17 0608 Individualization Patient Specific Preferences -- Patient Specific Goals -- Patient Specific Interventions continue 3200 ml fluid allowance as per orders Mutuality/Individual Preferences What Anxieties, Fears or Concerns Do You Have About Your Health or Care? -- What Questions Do You Have About Your Health or Care? -- What Information Would Help Us Give You More Personalized Care? -- Goal: Fall Prevention-Safe Patient Handling Outcome: Ongoing (Interventions Implemented as Appropriate) 12/06/17 19312/07/1783412/07/172033 Restraint Interventions Safety Promotion/Fall Prevention -- -- activity supervised;fall prevention program maintained;nonskid shoes/slippers when out of bed;safety round/check completed Activity Activity Type -- -- activity adjusted per tolerance;dorsiflexion, plantar flexion encouraged;ROM, active encouraged Activity Assistance Provided -- -- assistance, 1 person Assistive Device Utilized -- wheelchair -- Positioning Body Position -- -- independent Daily Care Interventions Self-Care Promotion BADL personal objects within reach -- -- [place] Fall Risk History of Falling -- -- 25 Secondary Diagnosis -- -- 15 Ambulatory Aids -- -- 15 Intravenous Therapy/Heparin/Saline Lock -- -- 0 Gait/Transferring -- -- 10 Mental Status -- -- 15 Score -- -- 80 OTHER [place] Fall Risk -- -- High Goal: Infection Control Outcome: Ongoing (Interventions Implemented as Appropriate) 12/07/172033 Coping Strategies Supportive Measures active listening utilized;decision-making supported;goal setting facilitated;relaxation techniques promoted;self-care encouraged;self- responsibility promoted;verbalization of feelings encouraged Safety Interventions Isolation Precautions standard precautions maintained Infection Prevention single patient room provided;rest/sleep promoted;environmental surveillance performed Goal: Discharge Needs Assessment Outcome: Ongoing (Interventions Implemented as Appropriate) 11/23/172134 Discharge Needs Assessment Concerns To Be Addressed adjustment to diagnosis/illness concerns;basic needs concerns;care coordination/care conferences;cognitive/perceptual concerns;discharge planning concerns;home safety concerns Readmission Within The Last 30 Days no previous admission in last 30 days Provider Choice List(s) Given no Equipment Needed After Discharge walker, rolling;commode;wheelchair Discharge Facility/Level Of Care Needs assisted living facility;rehabilitation facility;nursing facility, skilled;nursing facility, basic;adult foster care/nursing home Current Discharge Risk chronically ill;cognitively impaired;dependent with mobility/activities of daily living;physical impairment Discharge Disposition still a patient Current Health Outpatient/Agency/Support Group Needs assisted living facility (specify);half-way facility (specify);[facility] (specify);nursing home (specify) Anticipated Changes Related to Illness none Living Environment Transportation Available family or friend will provide;ambulance;van, wheelchair accessible Activity/Self Care Review of Systems Equipment Currently Used at Home none Goal: Interdisciplinary Rounds/Family Conf Outcome: Ongoing (Interventions Implemented as Appropriate) 11/27/17 0058 Interdisciplinary Rounds/Family Conf Participants nursing;patient Problem: Skin Integrity Impairment, Risk/Actual (Adult) Goal: Skin Integrity/Wound Healing Patient will demonstrate the desired outcomes by discharge/transition of care. Outcome: Ongoing (Interventions Implemented as Appropriate) 12/08/17 0049 Skin Integrity Impairment, Risk/Actual (Adult) Skin Integrity/Wound Healing making progress toward outcome Problem: Thought Process Alteration (Adult) Goal: Improved Thought Process Patient will demonstrate the desired outcomes by discharge/transition of care. Outcome: Ongoing (Interventions Implemented as Appropriate) 12/08/17 0049 Thought Process Alteration (Adult) Improved Thought Process making progress toward outcome Problem: Fluid Volume Excess (Adult,Obstetrics,Pediatric) Goal: Stable Weight Patient will demonstrate the desired outcomes by discharge/transition of care. Outcome: Ongoing (Interventions Implemented as Appropriate) 12/08/17 0049 Fluid Volume Excess (Adult,Obstetrics,Pediatric) Stable Weight making progress toward outcome Goal: Balanced Intake/Output Patient will demonstrate the desired outcomes by discharge/transition of care. Outcome: Ongoing (Interventions Implemented as Appropriate) 12/08/1748 Fluid Volume Excess (Adult,Obstetrics,Pediatric) Balanced Intake/Output making progress toward outcome * Plan of Care - Lori Dunham RN - 12/07/2017 3:21 PM EDT Problem: Patient Care Overview Goal: Plan of Care Review Outcome: Ongoing (Interventions Implemented as Appropriate) 12/05/17 1701 12/07/17 0835 Coping/Psychosocial Plan Of Care Reviewed With -- patient Plan of Care Review Progress progress towards functional goals is fair -- OUTCOME EVALUATION NOTE: OUTCOME SUMMARY: A&O. Able to answer orientation questions appropriately. Reporting no pain this morning and moderate pain in the afternoon. Frequently yelling out, but able to communicate and cooperate with staff. Eyes are unequal in shape, Left larger than right. Extraocular eye movements have undocumented nystagmus. MD aware. No weakness, deficit or s/s of stroke. VSS. housing management officer at bedside, verbalizes I am not 100% sure about his pupils, but I think this may be his baseline after the TBI. No acute events. Will continue to monitor. PLAN MOVING FORWARD: Increase mobility with PT. INDIVIDUALIZED FALL PREVENTION INTERVENTIONS: Patient-specific fall risk factors per assessment: [current deficits]: AMS, history of falls Assistance [level of assistance required for transfers and ambulation]: Hands on Supervision [direct monitoring required during toileting and ADLs]: 2 assist Surveillance [continuous indirect monitoring]: Room near RN station, jeet, sitter at bedside Patient-specific fall prevention interventions for sensory deficits provided, if applicable: [X] N/A CPG GOAL OUTCOME EVALUATION: * Plan of Care - Garret Barrera RN - 12/07/2017 4:31 AM EDT Problem: Patient Care Overview Goal: Plan of Care Review Outcome: Ongoing (Interventions Implemented as Appropriate) 12/05/17 1701 12/06/17 1936 Coping/Psychosocial Plan Of Care Reviewed With -- patient Plan of Care Review Progress progress towards functional goals is fair -- OUTCOME EVALUATION NOTE: OUTCOME SUMMARY: Patient has been sleeping throughout the majority of the night. VSS. Continues to call out @ times, however denies pain. Incontinent of large BM x1. Continues with bedside sitter. Noacute issues noted, overnight. PLAN MOVING FORWARD: Will continue to monitor, offer assistance, 1:1 sitter, offer assistance, and otherwise tx as necessary/ordered. INDIVIDUALIZED FALL PREVENTION INTERVENTIONS: Patient-specific fall risk factors per assessment: [current deficits]: Confused, generalized weakness, Recent R hip fx (3 months) Assistance [level of assistance required for transfers and ambulation]: 2 assist Supervision [direct monitoring required during toileting and ADLs]: 1:1 sitter, hands on/eyes on with all transfers/oob Surveillance [continuous indirect monitoring]: Bed alarm, 1:1 sitter, purposeful rounding Patient-specific fall prevention interventions for sensory deficits provided, if applicable: [X] No CPG GOAL OUTCOME EVALUATION: Goal: Individualization & Mutuality Outcome: Ongoing (Interventions Implemented as Appropriate) 10/17/17 1745 11/05/17 0354 11/18/17 0546 Individualization Patient Specific Preferences -- sitter at bedside, cluster care -- Patient Specific Goals -- maintain safety plan, limit interuptions -- Patient Specific Interventions -- -- -- Mutuality/Individual Preferences What Anxieties, Fears or Concerns Do You Have About Your Health or Care? ISHAAN -- -- What Questions Do You Have About Your Health or Care? ISHAAN -- -- What Information Would Help Us Give You More Personalized Care? -- -- SisterBettina, is his guardian 12/04/17 0608 Individualization Patient Specific Preferences -- Patient Specific Goals -- Patient Specific Interventions continue 3200 ml fluid allowance as per orders Mutuality/Individual Preferences What Anxieties, Fears or Concerns Do You Have About Your Health or Care? -- What Questions Do You Have About Your Health or Care? -- What Information Would Help Us Give You More Personalized Care? -- Goal: Fall Prevention-Safe Patient Handling Outcome: Ongoing (Interventions Implemented as Appropriate) 12/06/17193512/07/17 0300 Restraint Interventions Safety Promotion/Fall Prevention -- activity supervised Activity Activity Type -- activity adjusted per tolerance Activity Assistance Provided -- assistance, 1 person Assistive Device Utilized wheelchair -- Positioning Body Position -- independent Daily Care Interventions Self-Care Promotion BADL personal objects within reach -- [place] Fall Risk History of Falling 25 -- Secondary Diagnosis 15 -- Ambulatory Aids 15 -- Intravenous Therapy/Heparin/Saline Lock 0 -- Gait/Transferring 10 -- Mental Status 15 -- Score 80 -- OTHER [place] Fall Risk High -- Goal: Infection Control Outcome: Ongoing (Interventions Implemented as Appropriate) 12/06/17193512/07/17 0300 Coping Strategies Supportive Measures positive reinforcement provided;active listening utilized -- Safety Interventions Isolation Precautions -- standard precautions maintained Infection Prevention -- single patient room provided;personal protective equipment utilized;equipment surfaces disinfected;environmental surveillance performed Goal: Discharge Needs Assessment Outcome: Ongoing (Interventions Implemented as Appropriate) 11/23/17 2135 Discharge Needs Assessment Concerns To Be Addressed adjustment to diagnosis/illness concerns;basic needs concerns;care coordination/care conferences;cognitive/perceptual concerns;discharge planning concerns;home safety concerns Readmission Within The Last 30 Days no previous admission in last 30 days Provider Choice List(s) Given no Equipment Needed After Discharge walker, rolling;commode;wheelchair Discharge Facility/Level Of Care Needs assisted living facility;rehabilitation facility;nursing facility, skilled;nursing facility, basic;adult foster care/nursing home Current Discharge Risk chronically ill;cognitively impaired;dependent with mobility/activities of daily living;physical impairment Discharge Disposition still a patient Current Health Outpatient/Agency/Support Group Needs assisted living facility (specify);half-way facility (specify);[facility] (specify);nursing home (specify) Anticipated Changes Related to Illness none Living Environment Transportation Available family or friend will provide;ambulance;van, wheelchair accessible Activity/Self Care Review of Systems Equipment Currently Used at Home none Goal: Interdisciplinary Rounds/Family Conf Outcome: Ongoing (Interventions Implemented as Appropriate) 11/27/17 0058 Interdisciplinary Rounds/Family Conf Participants nursing;patient Problem: Skin Integrity Impairment, Risk/Actual (Adult) Goal: Skin Integrity/Wound Healing Patient will demonstrate the desired outcomes by discharge/transition of care. Outcome: Ongoing (Interventions Implemented as Appropriate) 12/05/17 1700 Skin Integrity Impairment, Risk/Actual (Adult) Skin Integrity/Wound Healing making progress toward outcome Problem: Thought Process Alteration (Adult) Goal: Improved Thought Process Patient will demonstrate the desired outcomes by discharge/transition of care. Outcome: Ongoing (Interventions Implemented as Appropriate) 12/05/17 1700 Thought Process Alteration (Adult) Improved Thought Process making progress toward outcome Problem: Fluid Volume Excess (Adult,Obstetrics,Pediatric) Goal: Stable Weight Patient will demonstrate the desired outcomes by discharge/transition of care. Outcome: Ongoing (Interventions Implemented as Appropriate) 12/04/17 0606 Fluid Volume Excess (Adult,Obstetrics,Pediatric) Stable Weight making progress toward outcome Goal: Balanced Intake/Output Patient will demonstrate the desired outcomes by discharge/transition of care. Outcome: Ongoing (Interventions Implemented as Appropriate) 12/04/17 06 Fluid Volume Excess (Adult,Obstetrics,Pediatric) Balanced Intake/Output making progress toward outcome * Plan of Care - Erlinda Bhat RN - 12/06/2017 2:58 PM EDT Problem: Patient Care Overview Goal: Plan of Care Review Outcome: Ongoing (Interventions Implemented as Appropriate) 12/05/17 17012/05/171945 Coping/Psychosocial Plan Of Care Reviewed With -- patient Plan of Care Review Progress progress towards functional goals is fair -- OUTCOME EVALUATION NOTE: OUTCOME SUMMARY: Patient remains unable to reliably answer orientation questions, however does respond to his name. Can at times make needs known when asked direct questions such as do you want more or would you like to do . VSS. Sitter at bedside. Patient calm throughout the day and has been distracted with his favorite activities. Good PO intake at meals Napping/resting between care and throughout the day. PLAN MOVING FORWARD: Continue sitter at bedside Promote PO intake Promote mobility as safe and as tolerated INDIVIDUALIZED FALL PREVENTION INTERVENTIONS: Patient-specific fall risk factors per assessment: [current deficits]: Blindness, decreased mobility Assistance [level of assistance required for transfers and ambulation]: 2 assist Supervision [direct monitoring required during toileting and ADLs]: 1-2 assist Surveillance [continuous indirect monitoring]: Sitter at bedside, nursing rounding completed Patient-specific fall prevention interventions for sensory deficits provided, if applicable: Yes CPG GOAL OUTCOME EVALUATION: Problem: Thought Process Alteration (Adult) Goal: Improved Thought Process Patient will demonstrate the desired outcomes by discharge/transition of care. Outcome: Ongoing (Interventions Implemented as Appropriate) 12/05/17 1700 Thought Process Alteration (Adult) Improved Thought Process making progress toward outcome Problem: Fluid Volume Excess (Adult,Obstetrics,Pediatric) Goal: Balanced Intake/Output Patient will demonstrate the desired outcomes by discharge/transition of care. Outcome: Ongoing (Interventions Implemented as Appropriate) 12/04/17 0606 Fluid Volume Excess (Adult,Obstetrics,Pediatric) Balanced Intake/Output making progress toward outcome * Plan of Care - Garret Barrera RN - 12/06/2017 4:22 AM EDT Problem: Patient Care Overview Goal: Plan of Care Review Outcome: Ongoing (Interventions Implemented as Appropriate) 12/05/17 17012/05/171945 Coping/Psychosocial Plan Of Care Reviewed With -- patient Plan of Care Review Progress progress towards functional goals is fair -- OUTCOME EVALUATION NOTE: OUTCOME SUMMARY: Patient has been sleeping intermittently throughout the night. VSS. Continues withbedside sitter. No acute issues noted, overnight. PLAN MOVING FORWARD: Will continue to monitor, bedside sitter, offer assistance, and otherwise tx as necessary/ordered. INDIVIDUALIZED FALL PREVENTION INTERVENTIONS: Patient-specific fall risk factors per assessment: [current deficits]: Generalized weakness, confused, recent hip fx (3 months) Assistance [level of assistance required for transfers and ambulation]: 2 assist Supervision [direct monitoring required during toileting and ADLs]: Hands on/eyes on with all transfers/oob Surveillance [continuous indirect monitoring]: Bed alarm, bedside sitter Patient-specific fall prevention interventions for sensory deficits provided, if applicable: [X] No CPG GOAL OUTCOME EVALUATION: Goal: Individualization & Mutuality Outcome: Ongoing (Interventions Implemented as Appropriate) 10/17/17 1745 11/05/17 0354 11/18/17 0546 Individualization Patient Specific Preferences -- sitter at bedside, cluster care -- Patient Specific Goals -- maintain safety plan, limit interuptions -- Patient Specific Interventions -- -- -- Mutuality/Individual Preferences What Anxieties, Fears or Concerns Do You Have About Your Health or Care? ISHAAN -- -- What Questions Do You Have About Your Health or Care? ISHAAN -- -- What Information Would Help Us Give You More Personalized Care? -- -- Sister, Bettina, is his guardian 12/04/17 0608 Individualization Patient Specific Preferences -- Patient Specific Goals -- Patient Specific Interventions continue 3200 ml fluid allowance as per orders Mutuality/Individual Preferences What Anxieties, Fears or Concerns Do You Have About Your Health or Care? -- What Questions Do You Have About Your Health or Care? -- What Information Would Help Us Give You More Personalized Care? -- Goal: Fall Prevention-Safe Patient Handling Outcome: Ongoing (Interventions Implemented as Appropriate) 12/05/17 1400 12/05/17 194 Restraint Interventions Safety Promotion/Fall Prevention -- activity supervised Activity Activity Type -- activity adjusted per tolerance Activity Assistance Provided -- assistance, 2 people Assistive Device Utilized wheelchair -- Positioning Body Position -- independent Daily Care Interventions Self-Care Promotion -- BADL personal objects within reach;BADL personal routines maintained;independence encouraged [place] Fall Risk History of Falling -- 25 Secondary Diagnosis -- 15 Ambulatory Aids -- 15 Intravenous Therapy/Heparin/Saline Lock -- 0 Gait/Transferring -- 10 Mental Status -- 15 Score -- 80 OTHER [place] Fall Risk -- High Goal: Infection Control Outcome: Ongoing (Interventions Implemented as Appropriate) 12/05/17 0836 12/05/17 1946 Coping Strategies Supportive Measures active listening utilized;positive reinforcement provided;self-care encouraged;verbalization of feelings encouraged -- Safety Interventions Isolation Precautions -- standard precautions maintained Infection Prevention -- rest/sleep promoted;single patient room provided Goal: Discharge Needs Assessment Outcome: Ongoing (Interventions Implemented as Appropriate) 11/23/172134 Discharge Needs Assessment Concerns To Be Addressed adjustment to diagnosis/illness concerns;basic needs concerns;care coordination/care conferences;cognitive/perceptual concerns;discharge planning concerns;home safety concerns Readmission Within The Last 30 Days no previous admission in last 30 days Provider Choice List(s) Given no Equipment Needed After Discharge walker, rolling;commode;wheelchair Discharge Facility/Level Of Care Needs assisted living facility;rehabilitation facility;nursing facility, skilled;nursing facility, basic;adult foster care/nursing home Current Discharge Risk chronically ill;cognitively impaired;dependent with mobility/activities of daily living;physical impairment Discharge Disposition still a patient Current Health Outpatient/Agency/Support Group Needs assisted living facility (specify);half-way facility (specify);[facility] acute care facility (specify);nursing home (specify) Anticipated Changes Related to Illness none Living Environment Transportation Available family or friend will provide;ambulance;van, wheelchair accessible Activity/Self Care Review of Systems Equipment Currently Used at Home none Goal: Interdisciplinary Rounds/Family Conf Outcome: Ongoing (Interventions Implemented as Appropriate) 11/27/17 0058 Interdisciplinary Rounds/Family Conf Participants nursing;patient Problem: Skin Integrity Impairment, Risk/Actual (Adult) Goal: Skin Integrity/Wound Healing Patient will demonstrate the desired outcomes by discharge/transition of care. Outcome: Ongoing (Interventions Implemented as Appropriate) 12/05/17 1700 Skin Integrity Impairment, Risk/Actual (Adult) Skin Integrity/Wound Healing making progress toward outcome Problem: Thought Process Alteration (Adult) Goal: Improved Thought Process Patient will demonstrate the desired outcomes by discharge/transition of care. Outcome: Ongoing (Interventions Implemented as Appropriate) 12/05/17 1700 Thought Process Alteration (Adult) Improved Thought Process making progress toward outcome Problem: Fluid Volume Excess (Adult,Obstetrics,Pediatric) Goal: Stable Weight Patient will demonstrate the desired outcomes by discharge/transition of care. Outcome: Ongoing (Interventions Implemented as Appropriate) 12/04/17 06 Fluid Volume Excess (Adult,Obstetrics,Pediatric) Stable Weight making progress toward outcome Goal: Balanced Intake/Output Patient will demonstrate the desired outcomes by discharge/transition of care. Outcome: Ongoing (Interventions Implemented as Appropriate) 12/04/17 06 Fluid Volume Excess (Adult,Obstetrics,Pediatric) Balanced Intake/Output making progress toward outcome * Plan of Care - Dani Montoya RN - 12/05/2017 5:31 PM EDT Problem: Patient Care Overview Goal: Plan of Care Review Outcome: Ongoing (Interventions Implemented as Appropriate) 12/05/17 170 Coping/Psychosocial Plan Of Care Reviewed With patient Plan of Care Review Progress progress towards functional goals is fair OUTCOME EVALUATION NOTE: OUTCOME SUMMARY: Patient is alert, oriented to self and hospital. Caregiver and patient sitter remained at bedside throughout the day. Pt got OOB to shower, chair, wheelchair and commode throughout the day. Continueson 3.2L fluid restriction. Patient transferred from net bed to floor bed, 4 side rails remain up for safety. No acute events, will continue to monitor. Fired sepsis at 1700, HR sustaining 120s/RR 20s while sitting up eating dinner, MD Young aware. Pt denied pain and had no complaints at this time. STAT EKG obtained, pt then began yelling out pain, PRN dilaudid administered. Will notify MD of any changes. PLAN MOVING FORWARD: Encourage mobility, fluid restriction, discharge planning INDIVIDUALIZED FALL PREVENTION INTERVENTIONS: Patient-specific fall risk factors per assessment: [current deficits]: Pain, immobility, impulsive Assistance [level of assistance required for transfers and ambulation]: Assist x2 Supervision [direct monitoring required during toileting and ADLs]: Hands on Surveillance [continuous indirect monitoring]: Bed alarm, patient sitter at bedside Patient-specific fall prevention interventions for sensory deficits provided, if applicable: [X] N/A CPG GOAL OUTCOME EVALUATION: * Plan of Care - Garret Barrera RN - 12/05/2017 3:57 AM EDT Problem: Patient Care Overview Goal: Plan of Care Review Outcome: Ongoing (Interventions Implemented as Appropriate) 11/25/17 0401 12/04/17 1055 Coping/Psychosocial Plan Of Care Reviewed With -- patient Plan of Care Review Progress progress towards functional goals is fair -- OUTCOME EVALUATION NOTE: OUTCOME SUMMARY: Patient has been sleeping intermittently throughout the night. VSS.Remains in net bed for continued patient safety. Incontinent of urine and stool. Care delivered as appropriate. Sitter remains @ bedside. PLAN MOVING FORWARD: Will continue to monitor, offer assistance, and otherwise tx as necessary/ordered INDIVIDUALIZED FALL PREVENTION INTERVENTIONS: Patient-specific fall risk factors per assessment: [current deficits]: Generalized weakness, Assistance [level of assistance required for transfers and ambulation]: 2 assist Supervision [direct monitoring required during toileting and ADLs]: Hands on/eyes on with all transfers/oob Surveillance [continuous indirect monitoring]: Purposeful rounding, bedside sitter Patient-specific fall prevention interventions for sensory deficits provided, if applicable: [X] No CPG GOAL OUTCOME EVALUATION: Goal: Individualization & Mutuality Outcome: Ongoing (Interventions Implemented as Appropriate) 10/17/17 1745 11/05/17 0354 11/18/17 0546 Individualization Patient Specific Preferences -- sitter at bedside, cluster care -- Patient Specific Goals -- maintain safety plan, limit interuptions -- Patient Specific Interventions -- -- -- Mutuality/Individual Preferences What Anxieties, Fears or Concerns Do You Have About Your Health or Care? ISHAAN -- -- What Questions Do You Have About Your Health or Care? ISHAAN -- -- What Information Would Help Us Give You More Personalized Care? -- -- Sister, Bettina, is his guardian 12/04/17 0608 Individualization Patient Specific Preferences -- Patient Specific Goals -- Patient Specific Interventions continue 3200 ml fluid allowance as per orders Mutuality/Individual Preferences What Anxieties, Fears or Concerns Do You Have About Your Health or Care? -- What Questions Do You Have About Your Health or Care? -- What Information Would Help Us Give You More Personalized Care? -- Goal: Fall Prevention-Safe Patient Handling Outcome: Ongoing (Interventions Implemented as Appropriate) 12/04/1789912/04/17195212/05/17 0200 Restraint Interventions Safety Promotion/Fall Prevention -- -- nonskid shoes/slippers when out of bed;safety round/check completed;fall prevention program maintained Activity Activity Type -- -- activity adjusted per tolerance Activity Assistance Provided -- -- assistance, 1 person Assistive Device Utilized -- -- none Positioning Body Position -- -- independent Daily Care Interventions Self-Care Promotion -- BADL personal routines maintained -- [place] Fall Risk History of Falling -- 25 -- Secondary Diagnosis -- 15 -- Ambulatory Aids -- 15 -- Intravenous Therapy/Heparin/Saline Lock -- 0 -- Gait/Transferring -- 20 -- Mental Status -- 15 -- Score -- 90 -- OTHER [place] Fall Risk High -- -- Goal: Infection Control Outcome: Ongoing (Interventions Implemented as Appropriate) 12/04/17195212/05/17 020 Coping Strategies Supportive Measures active listening utilized -- Safety Interventions Isolation Precautions -- standard precautions maintained Infection Prevention -- environmental surveillance performed Goal: Discharge Needs Assessment Outcome: Ongoing (Interventions Implemented as Appropriate) 11/23/17 2135 Discharge Needs Assessment Concerns To Be Addressed adjustment to diagnosis/illness concerns;basic needs concerns;care coordination/care conferences;cognitive/perceptual concerns;discharge planning concerns;home safety concerns Readmission Within The Last 30 Days no previous admission in last 30 days Provider Choice List(s) Given no Equipment Needed After Discharge walker, rolling;commode;wheelchair Discharge Facility/Level Of Care Needs assisted living facility;rehabilitation facility;nursing facility, skilled;nursing facility, basic;adult foster care/nursing home Current Discharge Risk chronically ill;cognitively impaired;dependent with mobility/activities of daily living;physical impairment Discharge Disposition still a patient Current Health Outpatient/Agency/Support Group Needs assisted living facility (specify);half-way facility (specify);[facility] (specify);nursing home (specify) Anticipated Changes Related to Illness none Living Environment Transportation Available family or friend will provide;ambulance;van, wheelchair accessible Activity/Self Care Review of Systems Equipment Currently Used at Home none Goal: Interdisciplinary Rounds/Family Conf Outcome: Ongoing (Interventions Implemented as Appropriate) 11/27/17 0058 Interdisciplinary Rounds/Family Conf Participants nursing;patient Problem: Skin Integrity Impairment, Risk/Actual (Adult) Goal: Skin Integrity/Wound Healing Patient will demonstrate the desired outcomes by discharge/transition of care. Outcome: Ongoing (Interventions Implemented as Appropriate) 12/03/17 0534 Skin Integrity Impairment, Risk/Actual (Adult) Skin Integrity/Wound Healing making progress toward outcome Problem: Thought Process Alteration (Adult) Goal: Improved Thought Process Patient will demonstrate the desired outcomes by discharge/transition of care. Outcome: Ongoing (Interventions Implemented as Appropriate) 12/04/17 0606 Thought Process Alteration (Adult) Improved Thought Process making progress toward outcome Problem: Fluid Volume Excess (Adult,Obstetrics,Pediatric) Goal: Stable Weight Patient will demonstrate the desired outcomes by discharge/transition of care. Outcome: Ongoing (Interventions Implemented as Appropriate) 12/04/17 0606 Fluid Volume Excess (Adult,Obstetrics,Pediatric) Stable Weight making progress toward outcome Goal: Balanced Intake/Output Patient will demonstrate the desired outcomes by discharge/transition of care. Outcome: Ongoing (Interventions Implemented as Appropriate) 12/04/17 0606 Fluid Volume Excess (Adult,Obstetrics,Pediatric) Balanced Intake/Output making progress toward outcome * Plan of Care - Kaela Norwood RN - 12/04/2017 6:20 PM EDT Problem: Patient Care Overview Goal: Plan of Care Review Outcome: Ongoing (Interventions Implemented as Appropriate) 11/25/17 0401 12/04/17 1055 Coping/Psychosocial Plan Of Care Reviewed With -- patient Plan of Care Review Progress progress towards functional goals is fair -- OUTCOME EVALUATION NOTE: OUTCOME SUMMARY: Pt as alert this shift. Sometimes will answer questions and other times won't. Sitter and agency staff at the bed side. Early in the afternoon pt was eating lunch and fell asleep while eating. Pt wouldn't wake up and still had food in mouth. Sternal rub was performed and pt partially woke up. paged. Vitals were WNL. Neuro check WNL. Pt was transferred from wheelchair back to net bed for safety. believes pt is over tired. Labs were checked. Pt still remains combative at times. Remains in net bed. Has a good appetite. Worked with PT/OT this morning. Will continue to monitor. PLAN MOVING FORWARD: Continue with sitter for safety. Awaiting DC plan. INDIVIDUALIZED FALL PREVENTION INTERVENTIONS: Patient-specific fall risk factors per assessment: [current deficits]: Generalized weakness and decreased vision. Assistance [level of assistance required for transfers and ambulation]: x2 assit. Supervision [direct monitoring required during toileting and ADLs]: Eyes and hands on. Surveillance [continuous indirect monitoring]: Masimo, bed alarm, and purposeful rounding. Patient-specific fall prevention interventions for sensory deficits provided, if applicable: [X] Yes CPG GOAL OUTCOME EVALUATION: * Consult Note - Aniket Anders RN - 12/04/2017 12:39 PM EDT Certified Wound Care Nurse ICU Rounding Note Rounded on patient, discussed patient with RN. Reviewed assessment of all bony prominences and under devices for pressure ulcer development, ability to turn/reposition and if there are any barriers due to patient condition for routine care, turning schedules and or pressure ulcer prevention. Issues/concerns identified: Heel boggy Current Wound Care Recommendations in place/reviewed? RN states Mepilex Border Sacrum being used asable and Mepilex Border heel dressings. Recommended skin prep if patient removes Mepilex Borders. RN verbalized understanding and denied any skin/wound care issues. Discussed with RN: Kaela Norwood * Plan of Care - Louis Doran PTA - 12/04/2017 10:55 AM EDT Physical Therapy Treatment Treatment Number PT: 14 Pertinent History of Current Problem: Pt is a 27 yo man with a history of resection of pituitary tumor, intraoperative hemorrhage and CVA, cognitive impairment, cortical blindness, partial L sided paralysis, seizure disorder, and panhypopituitarism (with DI, adrenal insufficiency, hypothyroidism, hy pogonadism) here with a left acetabular fracture that occurred in the setting of a possible seizure. Precautions/Restrictions: fall, weight bearing Precautions Comments: WBAT L LE Assessment: Pt seen for functional mobility, strength, endurance and pt education. Practiced ambulating with frequent cues for weight bearing on L LE, pt continues to use a toe touch pattern but can heel weight bear when cued to do so. Attempted to facilitate greater weight bearing by kicking a ball back and forth, but anticipate pt is taking weight through arms to compensate. One episode of pt c/o pain in L knee after walking, quickly dozed off after sitting down and resting. Encourage increased opportunities to transfer or ambulate. Please see the flow sheet below for patient details and mobility. Pt would benefit from ongoing physical therapy interventions. Staff Mobility Recommendations: Stand pivot and short distance ambulation with FWW and 1-2 assist Anticipated Discharge Disposition: half-way facility (could go to handicap accesible nursing home with assistance) LOUIS DORAN PTA Pager: [phone] Inpatient Physical Therapy 12/04/17 1052 Rehab Evaluation Document Type therapy note (daily note) Total Evaluation Minutes, Physical Therapy 40 (TE-F x 3) Patient Effort good General Information Patient/Family/Caregiver Comments/Observations Pt responding appropriately to questions, drowsy throughout session Pertinent History of Current Problem Pt is a 27 yo man with a history of resection of pituitary tumor, intraoperative hemorrhage and CVA, cognitive impairment, cortical blindness, partial L sided paralysis, seizure disorder, and panhypopituitarism (with DI, adrenal insufficiency, hypothyroidism, hyp ogonadism) here with a left acetabular fracture that occurred in the setting of a possible seizure. Precautions/Restrictions fall;weight bearing Precautions Comments WBAT L LE Limitations/Impairments safety/cognitive Treatment Number PT 14 Pain Scale/Rating Pain Assessment Scale Word (verbal rating pain scale) Pain Level (grabbing at knee after ambulating, reports pain) Bed Mobility Assessment/Treatment Ovonzu-uo-Orx [place] (Bed Mobility) moderate assist (50% patient effort) Comment (Bed Mobility) extra time required, donned socks and gown with assist Transfer Assessment/Treatment Bed-Chair [place] (Transfers) minimum assist (75% patient effort);2 person assist required Qqc-[id number]-Iej Assistive Device (Transfers) rolling walker [place] (Sit-Stand Transfers) contact guard assist [place] (Stand-Sit Transfers) contact guard assist Fcn-Slufl-Hid Assistive Device (Transfers) rolling walker Safety Issues (Transfers) balance decreased during turns;step length decreased;weight-shifting ability decreased Impairments (Transfers) strength decreased;vision impaired Comment (Transfers) steady with FWW, occasional assist to move walker due to pt's decreased vision Gait Assessment/Treatment [place] (Gait) contact guard assist Assistive Device (Gait) rolling walker Distance in Feet (Gait) 50 ft x 2 Gait Pattern Analysis swing-to gait Deviations (Gait) carmen decreased;step length decreased;weight-shifting ability decreased Safety Issues (Gait) step length decreased;weight-shifting ability decreased Impairments (Gait) strength decreased;vision impaired Comment (Gait) steady with walker, able to steer with verbal cues, providec frequent cues to heel weight bear on L LE, pt predominately bears weight through forefoot only keeping hip, knee and ankle flexed Therapeutic Exercise Comment (Therapeutic Exercise) Standing in // bars, kicking ball back and forth alternating kickingleg, CGA x 2 with occasional Min A. Pt attempted to sit on the floor when tired, able to redirect and sit in wheelchair Plan of Care Review Plan Of Care Reviewed With patient Bed Mobility Goal Bed Mobility Goal, Date Established 09/09/17 Bed Mobility Goal, Time to Achieve by discharge Bed Mobility Goal, Activity Type all bed mobility activities Bed Mobility Goal, [place] Level moderate assist (50% patient effort) Bed Mobility Goal, Outcome Achieved goal ongoing Gait Training Goal Gait Training Goal, Date Established 09/09/17 Gait Training Goal, Time to Achieve by discharge Gait Training Goal, [place] Level minimum assist (75% patient effort) Gait Training Goal, Assist Device walker, rolling Gait Training Goal, Distance to Achieve 15 ft Gait Training Goal, Outcome goal met Transfer Training Goal Transfer Training Goal, Date Established 09/09/17 Transfer Training Goal, Time to Achieve by discharge Transfer Training Goal, Activity Type ske-oj-xkotb/lwcep-ki-[id number];aci-mb-scfdp/qijet-ze-aja Transfer Train Goal, [place] Level minimum assist (75% patient effort) Transfer Training Goal, Assist Device walker, rolling Transfer Training Goal, Outcome goal ongoing Physical Therapy Goal PT Goal, Date Established 09/09/17 PT Goal, Time to Achieve by discharge PT Goal, Activity Type Pt will propel self in w/c household distances PT Goal, [place] Level set up required;supervision required PT Goal, Outcome goal ongoing Clinical Impression Therapy Frequency 2-4 times/wk Anticipated Discharge Disposition half-way facility (could go to handicap accesible nursing home with assistance) * Plan of Care - Genevieve Lebron RN - 12/04/2017 6:35 AM EDT Problem: Patient Care Overview Goal: Plan of Care Review Outcome: Ongoing (Interventions Implemented as Appropriate) 11/25/17 0401 12/03/172025 Coping/Psychosocial Plan Of Care Reviewed With -- patient Plan of Care Review Progress progress towards functional goals is fair -- OUTCOME EVALUATION NOTE: OUTCOME SUMMARY: Pt with intermittent moaning/screeching over night, but denied any pain. Medicated with a prn dose of Seroquel due to his agitation and this seemed to help for a while. Later pt was medicated with Dilaudid 2 mg as it was unsure pt was having discomfort. Pt slept more tonight that the previous night. Pt aware he is in the hospital, does not know the year, but can talk about his family (sister and nephew). Could get pt talking about family or other favorite subjects, like [place] [employer], and this would stop his yelling/screeching. Pt frequently incontinent of urine, but attempted to use a urinal once when asked if had to go, and he said yes and voided in the urinal. Lungs are clear, no c/o nausea or abdominal pain. Pt belching frequently. Played country music for pt and then also put on the [employer] for him to listen to. This also seemed to calm him. Pt continues with a sitter and the net bed. Pt would occasionally strike out or get angry if he did not get what he wanted PLAN MOVING FORWARD: Continue per plans and orders. INDIVIDUALIZED FALL PREVENTION INTERVENTIONS: Patient-specific fall risk factors per assessment: [current deficits]: High fall risk r/t h/o falls, blindness, significant weakness of the lower extremities. Assistance [level of assistance required for transfers and ambulation]: One to two assist in bed, more when OOB Supervision [direct monitoring required during toileting and ADLs]: Hands on Surveillance [continuous indirect monitoring]: Purposeful rounding, one to one sitter, net bed Patient-specific fall prevention interventions for sensory deficits provided, if applicable: Yes, tell pt before touching him as he gets startled and possibly frightened. Provide a calm atmosphere/attitude for pt. CPG GOAL OUTCOME EVALUATION: * Plan of Care - Kaela Norwood RN - 12/03/2017 5:39 PM EDT Problem: Patient Care Overview Goal: Plan of Care Review OUTCOME EVALUATION NOTE: OUTCOME SUMMARY: Pt was alert this shift. Slept for most of morning. More awake and screaming most of the afternoon.Refused breakfast but ate a good lunch. Working on eating dinner now. Incontinent of urine this shift. Sitter and agency staff member at the bedside for shift. Remains in net bed. See restraint documentation. PLAN MOVING FORWARD: Awaiting DC plan. INDIVIDUALIZED FALL PREVENTION INTERVENTIONS: Patient-specific fall risk factors per assessment: [current deficits]: Generalized weakness and blindness. Assistance [level of assistance required for transfers and ambulation]: x2 assist. DH staff only. Supervision [direct monitoring required during toileting and ADLs]: Eyes and hands on. Surveillance [continuous indirect monitoring]: No cords. Chocking risk. Sitter at bed side. Net bed. Patient-specific fall prevention interventions for sensory deficits provided, if applicable: [X] Yes CPG GOAL OUTCOME EVALUATION: * Plan of Care - Genevieve Lebron RN - 12/03/2017 6:13 AM EDT Problem: Patient Care Overview Goal: Plan of Care Review Outcome: Ongoing (Interventions Implemented as Appropriate) 11/25/17 0401 12/02/17 1424 Coping/Psychosocial Plan Of Care Reviewed With -- patient Plan of Care Review Progress progress towards functional goals is fair -- OUTCOME EVALUATION NOTE: OUTCOME SUMMARY: Pt has had intermittent periods of calmness vs agitation with some aggressive behavior (swinging his arm, while in the net bed, out towards caregiver) while yelling unintelligible words (mostly grunting/high pitched and low pitched moans/screeches) while other times pt can answer simple questions like where are you (hospital), are you in pain (no), (Bettina is my sister). Pt asks for more after he has been given some food or water. Pt also seems to be talking to self and contradicting hispersonal statements Pt states Leave me alone Leave the room, but when asked if unhappy or wantsto be left alone, pt denies wanting to be left alone and denies any discomfort or pain. Pt slept inonly short naps overnight. Pt has been incontinent of large amount urine and a large soft to loose brownish/orozco stool. Music has been playing in back ground, as well as, sitter playing the [employer] forpt. The music, especially the guitar and [place] CD seemed to calm pt a bit, as well as, certain TV shows. Pt received all his scheduled medications, as well as, the prn dose of Seroquel 50 mg. Notified Kemi Camp APRN to let her know pt was having periods of increased agitation. No new orders. Pt remains in a net bed with a sitter in attendance. Pt able to move about in the net bed radha desires. Pt's sodium level from 10 pm came back as 146. Pt remains on a fluid restriction of 3,200 ml and he has met the limit. Skin is warm and dry and no breakdown noted. PLAN MOVING FORWARD: Continue per plans and orders. Emotional support. Encourage sleep at night, keep awake during the day shift as much as possible. Read the personal binder on Miguel Angel, prepared by family which is in the room. Continue to assess for pain. Fluid restriction as ordered. Continue with net bed. INDIVIDUALIZED FALL PREVENTION INTERVENTIONS: Patient-specific fall risk factors per assessment: [current deficits]: High fall risk r/t h/o falls, assistive device, multiple diagnoses. Assistance [level of assistance required for transfers and ambulation]: Two to three assist. Supervision [direct monitoring required during toileting and ADLs]: Hands on Surveillance [continuous indirect monitoring]: Purposeful rounding, one to one sitter, restraint ofa net bed. Patient-specific fall prevention interventions for sensory deficits provided, if applicable: Pt is blind, avoid sudden touching of pt so an to not startle him. Calm communication with pt. Continue with 1:1 sitter for safety. CPG GOAL OUTCOME EVALUATION: * Plan of Care - Pili Adkins RN - 12/02/2017 2:21 PM EDT Problem: Patient Care Overview Goal: Plan of Care Review Outcome: Ongoing (Interventions Implemented as Appropriate) 11/25/17 04012/01/172025 Coping/Psychosocial Plan Of Care Reviewed With -- patient Plan of Care Review Progress progress towards functional goals is fair -- OUTCOME EVALUATION NOTE: OUTCOME SUMMARY: Alert to self and place. VSS, remains tachycardic in one teens. No cardiac or respiratory issues during shift. Medications given per orders, see MAR. Pain reported this morning, medication given withgood effect, see MAR. Sodium levels this morning at 153, MD aware, recheck completed at approximately 1130 a.m. per MD orders, 150, fluid restriction changed to 3.2L per day. Sitter remains at bedside. Pt called per MD request to work with patient, awaiting arrival. Resting in net bed in between care, per orders. No further events. Will continue to monitor. PLAN MOVING FORWARD: Monitor vitals signs, safety. Sitter at bedside per orders, medications, pain management, history/monitor for seizures INDIVIDUALIZED FALL PREVENTION INTERVENTIONS: Patient-specific fall risk factors per assessment: [current deficits]: S/p ORIF left acetabular fracture, blind Assistance [level of assistance required for transfers and ambulation]: Heavy 2 assist with hands on walker Supervision [direct monitoring required during toileting and ADLs]: Hands on, eyes on Surveillance [continuous indirect monitoring]: Sitter at bedside, frequent purposeful rounding, single pt room near nursing station, net bed, call morris within reach Patient-specific fall prevention interventions for sensory deficits provided, if applicable: Yes CPG GOAL OUTCOME EVALUATION: * Plan of Care - Diana Greco RN - 12/02/2017 1:39 AM EDT Problem: Patient Care Overview Goal: Plan of Care Review Outcome: Ongoing (Interventions Implemented as Appropriate) 11/25/17 04012/01/172025 Coping/Psychosocial Plan Of Care Reviewed With -- patient Plan of Care Review Progress progress towards functional goals is fair -- OUTCOME EVALUATION NOTE: ? OUTCOME SUMMARY: ? Pt resting between care. Sitter @ bedside. Pt in net bed. Pain controlled w/scheduled and prn meds.music therapy/massage therapy also used this shift. Incontinence care provided prn. 1 time BMP drawn this evening. Will continue to monitor. ? PLAN MOVING FORWARD: ? -Pain Control -Mobilize -desmopressin 0.1 mg for 12/02 -electrolyte panel due 0800 12/02 -d/c planning ? INDIVIDUALIZED FALL PREVENTION: ? Pt is at risk to fall due to weakness, medication regimen, net bed ? Assistance:?? -2-assist with walker ? Supervision:? -Hands-on/eyes on for all transfers and ambulation ? Surveillance:? -Purposeful Rounding -Team Care -Nurse Knowledge Exchange ? CPG OUTCOME EVALUATION: ?? * Plan of Care - Pili Adkins RN - 12/01/2017 12:51 PM EDT Problem: Patient Care Overview Goal: Plan of Care Review Outcome: Ongoing (Interventions Implemented as Appropriate) 11/25/17 0401 11/30/17 2115 Coping/Psychosocial Plan Of Care Reviewed With -- patient Plan of Care Review Progress progress towards functional goals is fair -- OUTCOME EVALUATION NOTE: OUTCOME SUMMARY: Alert to self and place. VSS. No cardiac or respiratory issues during shift. Medications given per orders, see MAR. No pain reported. Sitter remains at bedside. Pt out with sitter for walk during shift, tolerated well. Resting in net bed in between care, per orders. No further events. Will continueto monitor. PLAN MOVING FORWARD: Monitor vitals signs, safety. Sitter at bedside per orders, medications, pain management, history/monitor for seizures INDIVIDUALIZED FALL PREVENTION INTERVENTIONS: Patient-specific fall risk factors per assessment: [current deficits]: S/p ORIF left acetabular fracture, blind Assistance [level of assistance required for transfers and ambulation]: Heavy 2 assist hands on with walker Supervision [direct monitoring required during toileting and ADLs]: Hands on, eyes on Surveillance [continuous indirect monitoring]: Frequent purposeful rounding, call morris within reach, net bed per orders, single pt room near nursing station, sitter at bedside Patient-specific fall prevention interventions for sensory deficits provided, if applicable: Yes CPG GOAL OUTCOME EVALUATION: * Plan of Care - Mady Foss RN - 12/01/2017 3:14 AM EDT Problem: Patient Care Overview Goal: Plan of Care Review Outcome: Ongoing (Interventions Implemented as Appropriate) 11/25/17 0401 11/30/17 2115 Coping/Psychosocial Plan Of Care Reviewed With -- patient Plan of Care Review Progress progress towards functional goals is fair -- OUTCOME EVALUATION NOTE: OUTCOME SUMMARY: Pt alert, disoriented to time, situation, knows who he is and that hes in the hospital. Pt very agitated at start of shift. Asking for food repeatedly. Sitter fed pt a good amount of food, eventuallycalmed down with music. Incontinent of urine multiple times. PRN Seroquel given with mild effect. Awake on and off throughout the night yelling. No acute issues or events. PLAN MOVING FORWARD: Continue to monitor. INDIVIDUALIZED FALL PREVENTION INTERVENTIONS: Patient-specific fall risk factors per assessment: [current deficits]: Significant weakness, high fall risk, net bed, 1:1 sitter Assistance [level of assistance required for transfers and ambulation]: 2 assist Supervision [direct monitoring required during toileting and ADLs]: Hands on Surveillance [continuous indirect monitoring]: 1:1 sitter, net bed, purposeful rounding, eyes on atall times Patient-specific fall prevention interventions for sensory deficits provided, if applicable: [X] Yes CPG GOAL OUTCOME EVALUATION: Goal: Individualization & Mutuality Outcome: Ongoing (Interventions Implemented as Appropriate) 10/17/17 1745 11/05/17 0354 11/18/17 0546 Individualization Patient Specific Preferences -- sitter at bedside, cluster care -- Patient Specific Goals -- maintain safety plan, limit interuptions -- Patient Specific Interventions -- -- 3500 ml fluid restriction Mutuality/Individual Preferences What Anxieties, Fears or Concerns Do You Have About Your Health or Care? ISHAAN -- -- What Questions Do You Have About Your Health or Care? ISHAAN -- -- What Information Would Help Us Give You More Personalized Care? -- -- Sister, Bettina, is his guardian Goal: Fall Prevention-Safe Patient Handling Outcome: Ongoing (Interventions Implemented as Appropriate) 11/29/17 0511/30/17211412/01/17 0150 Restraint Interventions Safety Promotion/Fall Prevention -- -- activity supervised;nonskid shoes/slippers when out of bed;safety round/check completed Activity Activity Type -- -- activity adjusted per tolerance Activity Assistance Provided -- -- assistance, 2 people Assistive Device Utilized -- none -- Positioning Body Position -- -- independent Daily Care Interventions Self-Care Promotion independence encouraged -- -- [place] Fall Risk History of Falling -- 25 -- Secondary Diagnosis -- 15 -- Ambulatory Aids -- 15 -- Intravenous Therapy/Heparin/Saline Lock -- 0 -- Gait/Transferring -- 10 -- Mental Status -- 15 -- Score -- 80 -- OTHER [place] Fall Risk -- High -- Goal: Infection Control Outcome: Ongoing (Interventions Implemented as Appropriate) 11/30/17211412/01/17 0150 Coping Strategies Supportive Measures active listening utilized -- Safety Interventions Isolation Precautions -- standard precautions maintained Infection Prevention -- single patient room provided Problem: Skin Integrity Impairment, Risk/Actual (Adult) Goal: Skin Integrity/Wound Healing Patient will demonstrate the desired outcomes by discharge/transition of care. Outcome: Ongoing (Interventions Implemented as Appropriate) 12/01/17 0310 Skin Integrity Impairment, Risk/Actual (Adult) Skin Integrity/Wound Healing making progress toward outcome * Plan of Care - Milady Gabriel RN - 11/30/2017 5:05 PM EDT Problem: Patient Care Overview Goal: Plan of Care Review Outcome: Ongoing (Interventions Implemented as Appropriate) 11/25/17 0401 11/30/17 1143 Coping/Psychosocial Plan Of Care Reviewed With -- patient Plan of Care Review Progress progress towards functional goals is fair -- OUTCOME EVALUATION NOTE: OUTCOME SUMMARY: A&O to self & place. 2 assist OOB. Non verbal pain scale used, pt given scheduled tylenol & ibuprofen, pt has been sleeping on and off today. Restraint (net bed) documentation completed, 1:1 sitter remains at bedside. Appetite is good, fluid restriction at 2800 (see e-DH). Pt currently resting in bed, safety maintained. PLAN MOVING FORWARD: 1:1 sitter, pain management INDIVIDUALIZED FALL PREVENTION INTERVENTIONS: Patient-specific fall risk factors per assessment: [current deficits]: Confusion, generalized weakness, unable to make needs known Assistance [level of assistance required for transfers and ambulation]: 2 assist Supervision [direct monitoring required during toileting and ADLs]: Hands on Surveillance [continuous indirect monitoring]: Purposeful rounding, safety checks, call morris withinreach Patient-specific fall prevention interventions for sensory deficits provided, if applicable: [X] Yes CPG GOAL OUTCOME EVALUATION: * Plan of Care - Priscilla Motley RN - 11/30/2017 4:44 AM EDT Problem: Patient Care Overview Goal: Plan of Care Review Outcome: Ongoing (Interventions Implemented as Appropriate) 11/25/17 0401 11/29/17 2226 Coping/Psychosocial Plan Of Care Reviewed With -- patient Plan of Care Review Progress progress towards functional goals is fair -- OUTCOME EVALUATION NOTE: OUTCOME SUMMARY: Pt A+O to self and place only, VSS over shift. Pt sleeping between care, assessment as filed. Sitter at bedside, restraint documentation filed per protocol. PRN robaxin administered x1 over shift. Ptintermittently moaning and calling out between sleep. No acute events, will continue to monitor andpage with updates. PLAN MOVING FORWARD: Sitter, net bed, pain management INDIVIDUALIZED FALL PREVENTION INTERVENTIONS: Patient-specific fall risk factors per assessment: [current deficits]: Unable to follow commands, weakness Assistance [level of assistance required for transfers and ambulation]: 2 assist Supervision [direct monitoring required during toileting and ADLs]: Hands on Surveillance [continuous indirect monitoring]: Purposeful hourly rounding, call morris within reach, room near unit station, bed alarm set Patient-specific fall prevention interventions for sensory deficits provided, if applicable: [X] N/A CPG GOAL OUTCOME EVALUATION: * Plan of Care - Milady Gabriel RN - 11/29/2017 4:26 PM EDT Problem: Patient Care Overview Goal: Plan of Care Review Outcome: Ongoing (Interventions Implemented as Appropriate) 11/25/17 0401 11/29/17 1038 Coping/Psychosocial Plan Of Care Reviewed With -- patient;other (see comments) (sitter) Plan of Care Review Progress progress towards functional goals is fair -- OUTCOME EVALUATION NOTE: OUTCOME SUMMARY: A&O to self only. 2 assist OOB. Non verbal pain scale used, pt moaning and yelling for most of the day, MD made aware, pain medications changed. Scheduled tylenol, ibuprofen given, as well as PRNPO dilaudid. VSS, on RA. Net bed and 1:1 sitter continues, pt continues to be agitated and intermittently combative. PRN PO Seroquel given with fair effect, pt fell asleep for a couple of hours. Appet ite is excellent. Pt currently resting in bed, safety maintained. PLAN MOVING FORWARD: Pain management, PT INDIVIDUALIZED FALL PREVENTION INTERVENTIONS: Patient-specific fall risk factors per assessment: [current deficits]: unable to make needs known, generalized weakness Assistance [level of assistance required for transfers and ambulation]: 2 assist Supervision [direct monitoring required during toileting and ADLs]: Hands on Surveillance [continuous indirect monitoring]: Purposeful rounding, safety checks, call morris withinreach Patient-specific fall prevention interventions for sensory deficits provided, if applicable: [X] Yes CPG GOAL OUTCOME EVALUATION: * Plan of Care - Mady Foss RN - 11/29/2017 5:03 AM EDT Problem: Patient Care Overview Goal: Plan of Care Review Outcome: Ongoing (Interventions Implemented as Appropriate) 11/25/17 0401 11/28/17 2218 Coping/Psychosocial Plan Of Care Reviewed With -- patient;caregiver Plan of Care Review Progress progress towards functional goals is fair -- OUTCOME EVALUATION NOTE: OUTCOME SUMMARY: Pt alert, oriented to self. Did not answer other orientation questions. PRN robaxin and dilaudid given x1. Yelling out/groaning more frequently than last night. No acute issues or events overnight. PLAN MOVING FORWARD: Continue to monitor. INDIVIDUALIZED FALL PREVENTION INTERVENTIONS: Patient-specific fall risk factors per assessment: [current deficits]: Generalized weakness, new environment, pain, mental delay Assistance [level of assistance required for transfers and ambulation]: 2 assist with walker Supervision [direct monitoring required during toileting and ADLs]: Hands on Surveillance [continuous indirect monitoring]: 1:1 sitter, purposeful rounding, net bed Patient-specific fall prevention interventions for sensory deficits provided, if applicable: Yes CPG GOAL OUTCOME EVALUATION: Goal: Individualization & Mutuality Outcome: Ongoing (Interventions Implemented as Appropriate) 10/17/17174411/05/174 11/18/17 0546 Individualization Patient Specific Preferences -- sitter at bedside, cluster care -- Patient Specific Goals -- maintain safety plan, limit interuptions -- Patient Specific Interventions -- -- 3500 ml fluid restriction Mutuality/Individual Preferences What Anxieties, Fears or Concerns Do You Have About Your Health or Care? ISHAAN -- -- What Questions Do You Have About Your Health or Care? ISHAAN -- -- What Information Would Help Us Give You More Personalized Care? -- -- Sister, Bettina, is his guardian Goal: Fall Prevention-Safe Patient Handling Outcome: Ongoing (Interventions Implemented as Appropriate) 11/28/17221711/29/17 0400 Restraint Interventions Safety Promotion/Fall Prevention -- safety round/check completed Activity Activity Type activity adjusted per tolerance -- Activity Assistance Provided assistance, 2 people -- Assistive Device Utilized standard walker -- Positioning Body Position -- independent Daily Care Interventions Self-Care Promotion -- independence encouraged [place] Fall Risk History of Falling 25 -- Secondary Diagnosis 15 -- Ambulatory Aids 15 -- Intravenous Therapy/Heparin/Saline Lock 20 -- Gait/Transferring 20 -- Mental Status 15 -- Score 110 -- OTHER [place] Fall Risk High -- Goal: Infection Control Outcome: Ongoing (Interventions Implemented as Appropriate) 11/28/17221711/29/17 0400 Coping Strategies Supportive Measures active listening utilized -- Safety Interventions Isolation Precautions -- standard precautions maintained Infection Prevention -- single patient room provided;rest/sleep promoted * Plan of Care - Priscilla Motley RN - 11/28/2017 3:51 PM EDT Problem: Patient Care Overview Goal: Plan of Care Review Outcome: Ongoing (Interventions Implemented as Appropriate) 11/25/17 0401 11/28/17 0947 Coping/Psychosocial Plan Of Care Reviewed With -- patient;caregiver Plan of Care Review Progress progress towards functional goals is fair -- OUTCOME EVALUATION NOTE: OUTCOME SUMMARY: Pt alert and oriented to self and place. Pt yelling out and moaning. When asked if in any pain, pt is able to answer yes or no. Scheduled pain medication administered as scheduled. PRN haldol administered for agitation, pt was kicking and hitting staff saying, I'm gonna bite you. PRN dilaudid administered x2 over shift for pain (see MAR). Sitter at bedside, restraint documentation filed per protocol. MD updated in regards to pt calling out and moaning over shift, no new interventions ordered.No acute events, will continue to monitor and page with updates. PLAN MOVING FORWARD: Restraint docs, sitter, PT INDIVIDUALIZED FALL PREVENTION INTERVENTIONS: Patient-specific fall risk factors per assessment: [current deficits]: Unable to follow commands, weakness Assistance [level of assistance required for transfers and ambulation]: 2 assist with walker Supervision [direct monitoring required during toileting and ADLs]: Hands on Surveillance [continuous indirect monitoring]: Purposeful hourly rounding, bed alarm on, call morris within reach, sitter at bedside, room near unit station Patient-specific fall prevention interventions for sensory deficits provided, if applicable: [X] N/A CPG GOAL OUTCOME EVALUATION: * Plan of Care - Mady Foss RN - 11/28/2017 1:36 AM EDT Problem: Patient Care Overview Goal: Plan of Care Review Outcome: Ongoing (Interventions Implemented as Appropriate) 11/25/17 0401 11/27/17 2107 Coping/Psychosocial Plan Of Care Reviewed With -- patient Plan of Care Review Progress progress towards functional goals is fair -- OUTCOME EVALUATION NOTE: OUTCOME SUMMARY: Pt alert, oriented to self and situation sometimes. Answers yes when asked if he is in pain, nightly dilaudid given. PRN muscle relaxer given later on in the night for increased restlessness and yelling out in pain. PRN dilaudid given in the deck cadet for pain as well. Incontinent of urine x3 overnight. Bladder scan was 0 at around 0300. No acute issues or events overnight. PLAN MOVING FORWARD: Continue to monitor. INDIVIDUALIZED FALL PREVENTION INTERVENTIONS: Patient-specific fall risk factors per assessment: [current deficits]: Significant weakness, new environment, cogitative impairment, recent surgury Assistance [level of assistance required for transfers and ambulation]: 2 assist with walker Supervision [direct monitoring required during toileting and ADLs]: Hands on, eyes on Surveillance [continuous indirect monitoring]: Net bed, sitter at bedside, q30 minute checks Patient-specific fall prevention interventions for sensory deficits provided, if applicable: [X] Yes CPG GOAL OUTCOME EVALUATION: Goal: Individualization & Mutuality Outcome: Ongoing (Interventions Implemented as Appropriate) 10/17/17 1745 11/05/17 0354 11/18/17 0546 Individualization Patient Specific Preferences -- sitter at bedside, cluster care -- Patient Specific Goals -- maintain safety plan, limit interuptions -- Patient Specific Interventions -- -- 3500 ml fluid restriction Mutuality/Individual Preferences What Anxieties, Fears or Concerns Do You Have About Your Health or Care? ISHAAN -- -- What Questions Do You Have About Your Health or Care? ISHAAN -- -- What Information Would Help Us Give You More Personalized Care? -- -- Sister, Bettina, is his guardian Goal: Fall Prevention-Safe Patient Handling Outcome: Ongoing (Interventions Implemented as Appropriate) 11/23/17213611/27/172106 Restraint Interventions Safety Promotion/Fall Prevention -- safety round/check completed Activity Activity Type -- ROM, active encouraged Activity Assistance Provided -- assistance, 2 people Assistive Device Utilized -- standard walker Positioning Body Position -- independent Daily Care Interventions Self-Care Promotion independence encouraged;BADL personal objects within reach;BADL personal routines maintained;safe use of adaptive equipment encouraged -- [place] Fall Risk History of Falling -- 25 Secondary Diagnosis -- 15 Ambulatory Aids -- 15 Intravenous Therapy/Heparin/Saline Lock -- 20 Gait/Transferring -- 20 Mental Status -- 15 Score -- 110 OTHER [place] Fall Risk -- High Goal: Infection Control Outcome: Ongoing (Interventions Implemented as Appropriate) 11/27/17 2107 Coping Strategies Supportive Measures relaxation techniques promoted Safety Interventions Isolation Precautions standard precautions maintained Infection Prevention single patient room provided Problem: Skin Integrity Impairment, Risk/Actual (Adult) Goal: Skin Integrity/Wound Healing Patient will demonstrate the desired outcomes by discharge/transition of care. Outcome: Ongoing (Interventions Implemented as Appropriate) 11/28/17 0120 Skin Integrity Impairment, Risk/Actual (Adult) Skin Integrity/Wound Healing making progress toward outcome * Plan of Care - Priscilla Motley RN - 11/27/2017 4:28 PM EDT Problem: Patient Care Overview Goal: Plan of Care Review Outcome: Ongoing (Interventions Implemented as Appropriate) 11/25/17 0401 11/27/17 1030 Coping/Psychosocial Plan Of Care Reviewed With -- patient Plan of Care Review Progress progress towards functional goals is fair -- OUTCOME EVALUATION NOTE: OUTCOME SUMMARY: Pt Alert and oriented to self and place only. Pt yelling out over shift, moaning. PRN tylenol and robixan administered with little effect (see MAR). Scheduled dilaudid maintained. Pt to gym with PT today. Pt became aggressive and agitated when getting back to bed from wheelchair, trying to hit and kick staff. Attempted redirection. PRN haldol administered (see MAR). Got pt back to bed, continued to cry and yell out. Pt incontinent of urine over shift (see I&O), cleaned up when needed. MD into assess this AM. Unable to obtain bladder scan, pt stated I'm going to bite you and was thrashing around in bed. No acute events, will continue to monitor and page with updates. PLAN MOVING FORWARD: Pain management, work with PT, redirect as appropriate INDIVIDUALIZED FALL PREVENTION INTERVENTIONS: Patient-specific fall risk factors per assessment: [current deficits]: Unable to follow commands, weakness Assistance [level of assistance required for transfers and ambulation]: 2 assist with walker Supervision [direct monitoring required during toileting and ADLs]: Hands on Surveillance [continuous indirect monitoring]: Purposeful hourly rounding, bed alarm on, call morris within reach, sitter at bedside Patient-specific fall prevention interventions for sensory deficits provided, if applicable: [X] N/A CPG GOAL OUTCOME EVALUATION: * Consult Note - Aniket Anders RN - 11/27/2017 3:02 PM EDT Certified Wound Care Nurse Rounding Note Rounded on patient, discussed patient with RN. Reviewed assessment of all bony prominences and under devices for pressure ulcer development, ability to turn/reposition and if there are any barriers due to patient condition for routine care, turning schedules and or pressure ulcer prevention. Issues/concerns identified: None Current Wound Care Recommendations in place/reviewed? ??Refer to adult/pediatric pressure ulcer prevention job aid in the clinical policy library highlighting the following points: ?? Friction and Shear: Reposition avoiding shear forces, utilizing maxislide, trendelenberg and max inflate (boost) feature on beds to assist with repositioning. Position hips at triangle icon on bed. Use skin prep on heels and elbows bid. Keep HOB less than or equal to 30 degrees. Use Nourishing Skin Cream after baths for extra dry skin ?? Use a sheet on the bed as able. IRN verbalized understanding and denied any skin/wound care issues. Discussed with RN: Priscilla * Plan of Care - Diana Greco RN - 11/27/2017 1:01 AM EDT Problem: Patient Care Overview Goal: Plan of Care Review Outcome: Ongoing (Interventions Implemented as Appropriate) 11/25/17 0401 11/26/172026 Coping/Psychosocial Plan Of Care Reviewed With -- patient Plan of Care Review Progress progress towards functional goals is fair -- OUTCOME EVALUATION NOTE: ? OUTCOME SUMMARY: ? Pt resting between care. Sitter @ bedside. Pt in net bed. Pain controlled w/scheduled and prn meds.music therapy/massage therapy also used this shift. Incontinence care provided prn.Will continue tomonitor. ? PLAN MOVING FORWARD: ? -Pain Control -Mobilize -d/c planning ? INDIVIDUALIZED FALL PREVENTION: ? Pt is at risk to fall due to weakness, medication regimen, net bed ? Assistance:?? -2-assist with walker ? Supervision:? -Hands-on/eyes on for all transfers and ambulation ? Surveillance:? -Purposeful Rounding -Team Care -Nurse Knowledge Exchange ? CPG OUTCOME EVALUATION: * Plan of Care - Nickie Zamora RN - 11/26/2017 5:33 PM EDT Problem: Patient Care Overview Goal: Plan of Care Review Outcome: Ongoing (Interventions Implemented as Appropriate) 11/25/17 0401 11/26/17 0900 Coping/Psychosocial Plan Of Care Reviewed With -- patient Plan of Care Review Progress progress towards functional goals is fair -- OUTCOME EVALUATION NOTE: ? OUTCOME SUMMARY: ? Patient alert, agitated, and restless. ISHAAN orientation. VSS. See doc flow for assessment. Patient calm and quiet until 2pm. Patient very aggressive this afternoon. Patient pivoted to the commode oncetoday with 2 assist. Patient was incontinent of urine x4. Patient remained in netbed with a 1:1 sitter and caregiver at the bedside for the shift. Patient went outside for a half an hour with caregiver and staff. Patient was appropriate. Pain medication decreased. No acute changes, will continue tomonitor. ? PLAN MOVING FORWARD: ? Placement ? INDIVIDUALIZED FALL PREVENTION INTERVENTIONS: ? Patient-specific fall risk factors per assessment: [current deficits]:?Generalized weakness, agitation ? Assistance [level of assistance required for transfers and ambulation]:?2-3 max assist. ? Supervision [direct monitoring required during toileting and ADLs]:?Hands on ? Surveillance [continuous indirect monitoring]:?1:1 sitter, net bed. ? Patient-specific fall prevention interventions for sensory deficits provided, if applicable:?[X]Yes ? CPG GOAL OUTCOME EVALUATION: Goal: Individualization & Mutuality Outcome: Ongoing (Interventions Implemented as Appropriate) 10/17/17 1745 11/05/17 0354 11/18/17 0546 Individualization Patient Specific Preferences -- sitter at bedside, cluster care -- Patient Specific Goals -- maintain safety plan, limit interuptions -- Patient Specific Interventions -- -- 3500 ml fluid restriction Mutuality/Individual Preferences What Anxieties, Fears or Concerns Do You Have About Your Health or Care? ISHAAN -- -- What Questions Do You Have About Your Health or Care? ISHAAN -- -- What Information Would Help Us Give You More Personalized Care? -- -- Sister, Bettina, is his guardian Goal: Fall Prevention-Safe Patient Handling Outcome: Ongoing (Interventions Implemented as Appropriate) 11/23/17 2137 11/26/17 0558 11/26/17 0900 Restraint Interventions Safety Promotion/Fall Prevention -- -- -- Activity Activity Type -- -- -- Activity Assistance Provided -- -- assistance, 2 people Assistive Device Utilized -- -- none Positioning Body Position -- side-lying, left;independent -- Daily Care Interventions Self-Care Promotion independence encouraged;BADL personal objects within reach;BADL personal routines maintained;safe use of adaptive equipment encouraged -- -- [place] Fall Risk History of Falling -- -- 25 Secondary Diagnosis -- -- 15 Ambulatory Aids -- -- 15 Intravenous Therapy/Heparin/Saline Lock -- -- 0 Gait/Transferring -- -- 20 Mental Status -- -- 15 Score -- -- 90 OTHER [place] Fall Risk -- -- High 11/26/17 1000 11/26/17 1705 Restraint Interventions Safety Promotion/Fall Prevention -- activity supervised;safety round/check completed Activity Activity Type activity adjusted per tolerance -- Activity Assistance Provided -- -- Assistive Device Utilized -- -- Positioning Body Position -- -- Daily Care Interventions Self-Care Promotion -- -- [place] Fall Risk History of Falling -- -- Secondary Diagnosis -- -- Ambulatory Aids -- -- Intravenous Therapy/Heparin/Saline Lock -- -- Gait/Transferring -- -- Mental Status -- -- Score -- -- OTHER [place] Fall Risk -- -- Goal: Infection Control Outcome: Ongoing (Interventions Implemented as Appropriate) 11/25/17204811/26/17 1000 11/26/17 1705 Coping Strategies Supportive Measures relaxation techniques promoted;positive reinforcement provided -- -- Safety Interventions Isolation Precautions -- standard precautions maintained -- Infection Prevention -- -- environmental surveillance performed Goal: Discharge Needs Assessment Outcome: Ongoing (Interventions Implemented as Appropriate) 11/23/17 213 Discharge Needs Assessment Concerns To Be Addressed adjustment to diagnosis/illness concerns;basic needs concerns;care coordination/care conferences;cognitive/perceptual concerns;discharge planning concerns;home safety concerns Readmission Within The Last 30 Days no previous admission in last 30 days Provider Choice List(s) Given no Equipment Needed After Discharge walker, rolling;commode;wheelchair Discharge Facility/Level Of Care Needs assisted living facility;rehabilitation facility;nursing facility, skilled;nursing facility, basic;adult foster care/nursing home Current Discharge Risk chronically ill;cognitively impaired;dependent with mobility/activities of daily living;physical impairment Discharge Disposition still a patient Current Health Outpatient/Agency/Support Group Needs assisted living facility (specify);half-way facility (specify);supervisor long goods acute care facility (specify);nursing home (specify) Anticipated Changes Related to Illness none Living Environment Transportation Available family or friend will provide;ambulance;van, wheelchair accessible Activity/Self Care Review of Systems Equipment Currently Used at Home none Goal: Interdisciplinary Rounds/Family Conf Outcome: Ongoing (Interventions Implemented as Appropriate) 11/23/172133 Interdisciplinary Rounds/Family Conf Participants nursing;occupational therapy;physical therapy;physician;patient;social work/services;dietitian/nutrition services;shoe caser Problem: Skin Integrity Impairment, Risk/Actual (Adult) Goal: Skin Integrity/Wound Healing Patient will demonstrate the desired outcomes by discharge/transition of care. Outcome: Ongoing (Interventions Implemented as Appropriate) 11/24/17 0505 Skin Integrity Impairment, Risk/Actual (Adult) Skin Integrity/Wound Healing making progress toward outcome * Plan of Care - Rony De La Fuente RN - 11/26/2017 4:09 AM EDT Problem: Patient Care Overview Goal: Plan of Care Review Outcome: Ongoing (Interventions Implemented as Appropriate) 11/25/17 0401 11/25/172048 Coping/Psychosocial Plan Of Care Reviewed With -- patient Plan of Care Review Progress progress towards functional goals is fair -- OUTCOME EVALUATION NOTE: OUTCOME SUMMARY: Pt in net bed with 1:1 sitter during the night. Pt incontinent of urine several times during the night. PRN dilaudid given x1 for inconsolable yelling and grabbing at feet and hip. Pt shortly after admin seen resting comfortably. Pt able to answer simple questions with one word answers. Pt able to report, self, place, night time. Unable to explain why he was in the hospital. No other acute changes or veralized complaints. PLAN MOVING FORWARD: Pain management, placement INDIVIDUALIZED FALL PREVENTION INTERVENTIONS: Patient-specific fall risk factors per assessment: [current deficits]: Confusion, agitation, blind Assistance [level of assistance required for transfers and ambulation]: 2a Supervision [direct monitoring required during toileting and ADLs]: Hands on Surveillance [continuous indirect monitoring]: 1:1 sitter, net bed Patient-specific fall prevention interventions for sensory deficits provided, if applicable: [X] Yes CPG GOAL OUTCOME EVALUATION: Goal: Individualization & Mutuality Outcome: Ongoing (Interventions Implemented as Appropriate) 10/17/17 1745 11/05/17 0354 11/18/17 0546 Individualization Patient Specific Preferences -- sitter at bedside, cluster care -- Patient Specific Goals -- maintain safety plan, limit interuptions -- Patient Specific Interventions -- -- 3500 ml fluid restriction Mutuality/Individual Preferences What Anxieties, Fears or Concerns Do You Have About Your Health or Care? ISHAAN -- -- What Questions Do You Have About Your Health or Care? ISHAAN -- -- What Information Would Help Us Give You More Personalized Care? -- -- Sister, Bettina, is his guardian Goal: Fall Prevention-Safe Patient Handling Outcome: Ongoing (Interventions Implemented as Appropriate) 11/23/17213611/25/17204811/26/17 0200 Restraint Interventions Safety Promotion/Fall Prevention -- -- activity supervised;nonskid shoes/slippers when out of bed;safety round/check completed Activity Activity Type -- -- activity adjusted per tolerance Activity Assistance Provided -- -- assistance, 2 people Assistive Device Utilized -- -- front-wheel walker Positioning Body Position -- -- independent Daily Care Interventions Self-Care Promotion independence encouraged;BADL personal objects within reach;BADL personal routines maintained;safe use of adaptive equipment encouraged -- -- [place] Fall Risk History of Falling -- 25 -- Secondary Diagnosis -- 15 -- Ambulatory Aids -- 15 -- Intravenous Therapy/Heparin/Saline Lock -- 0 -- Gait/Transferring -- 20 -- Mental Status -- 15 -- Score -- 90 -- OTHER [place] Fall Risk -- High -- Goal: Infection Control Outcome: Ongoing (Interventions Implemented as Appropriate) 11/25/17 2049 11/26/17 0200 Coping Strategies Supportive Measures relaxation techniques promoted;positive reinforcement provided -- Safety Interventions Isolation Precautions -- standard precautions maintained Infection Prevention -- environmental surveillance performed * Plan of Care - Nickie Zamora RN - 11/25/2017 3:40 PM EDT Problem: Patient Care Overview Goal: Plan of Care Review Outcome: Ongoing (Interventions Implemented as Appropriate) 11/25/17 0401 11/25/17 1030 Coping/Psychosocial Plan Of Care Reviewed With -- patient;caregiver Plan of Care Review Progress progress towards functional goals is fair -- OUTCOME EVALUATION NOTE: ?? OUTCOME SUMMARY: ?? Patient alert, agitated, and restless. ISHAAN orientation. VSS. See doc flow for assessment. Patient calling out for most of the day. Patient pivoted to the commode twice today with 2 assist. Patient had two extra large BMs. Patient was incontinent of urine x2. Patient remained in netbed with a 1:1 sitter and caregiver at the bedside for the shift. Patient did sit at the edge of the bed with sister present for a couple hours. Patient's behavior and mood much improved with sister at bedside. Hydromorphone given x1 for increased pain with good effect. No acute changes, will continue to monitor. ?? PLAN MOVING FORWARD: ?? Placement ?? INDIVIDUALIZED FALL PREVENTION INTERVENTIONS: ?? Patient-specific fall risk factors per assessment: [current deficits]: Generalized weakness, agitation ?? Assistance [level of assistance required for transfers and ambulation]: 2-3 max assist. ?? Supervision [direct monitoring required during toileting and ADLs]: Hands on ?? Surveillance [continuous indirect monitoring]: 1:1 sitter, net bed. ?? Patient-specific fall prevention interventions for sensory deficits provided, if applicable: [X] Yes ? CPG GOAL OUTCOME EVALUATION: Goal: Individualization & Mutuality Outcome: Ongoing (Interventions Implemented as Appropriate) 10/17/17 1745 11/05/17 0354 11/18/17 0546 Individualization Patient Specific Preferences -- sitter at bedside, cluster care -- Patient Specific Goals -- maintain safety plan, limit interuptions -- Patient Specific Interventions -- -- 3500 ml fluid restriction Mutuality/Individual Preferences What Anxieties, Fears or Concerns Do You Have About Your Health or Care? ISHAAN -- -- What Questions Do You Have About Your Health or Care? ISHAAN -- -- What Information Would Help Us Give You More Personalized Care? -- -- Sister, Bettina, is his guardian Goal: Fall Prevention-Safe Patient Handling Outcome: Ongoing (Interventions Implemented as Appropriate) 11/23/17 2137 11/24/177 11/25/17 1000 Restraint Interventions Safety Promotion/Fall Prevention -- -- -- Activity Activity Type -- activity adjusted per tolerance -- Activity Assistance Provided -- assistance, 2 people -- Assistive Device Utilized front-wheel walker -- -- Positioning Body Position -- -- -- Daily Care Interventions Self-Care Promotion independence encouraged;BADL personal objects within reach;BADL personal routines maintained;safe use of adaptive equipment encouraged -- -- [place] Fall Risk History of Falling -- -- 25 Secondary Diagnosis -- -- 15 Ambulatory Aids -- -- 15 Intravenous Therapy/Heparin/Saline Lock -- -- 0 Gait/Transferring -- -- 20 Mental Status -- -- 15 Score -- -- 90 OTHER [place] Fall Risk -- -- High 11/25/17 1100 Restraint Interventions Safety Promotion/Fall Prevention activity supervised;fall prevention program maintained;nonskid shoes/slippers when out of bed;safety round/check completed Activity Activity Type -- Activity Assistance Provided -- Assistive Device Utilized -- Positioning Body Position independent Daily Care Interventions Self-Care Promotion -- [place] Fall Risk History of Falling -- Secondary Diagnosis -- Ambulatory Aids -- Intravenous Therapy/Heparin/Saline Lock -- Gait/Transferring -- Mental Status -- Score -- OTHER [place] Fall Risk -- Goal: Infection Control Outcome: Ongoing (Interventions Implemented as Appropriate) 11/24/17205611/25/17 1000 Coping Strategies Supportive Measures -- positive reinforcement provided Safety Interventions Isolation Precautions standard precautions maintained -- Infection Prevention environmental surveillance performed;rest/sleep promoted;single patient room provided -- Goal: Discharge Needs Assessment Outcome: Ongoing (Interventions Implemented as Appropriate) 11/23/17 213 Discharge Needs Assessment Concerns To Be Addressed adjustment to diagnosis/illness concerns;basic needs concerns;care coordination/care conferences;cognitive/perceptual concerns;discharge planning concerns;home safety concerns Readmission Within The Last 30 Days no previous admission in last 30 days Provider Choice List(s) Given no Equipment Needed After Discharge walker, rolling;commode;wheelchair Discharge Facility/Level Of Care Needs assisted living facility;rehabilitation facility;nursing facility, skilled;nursing facility, basic;adult foster care/nursing home Current Discharge Risk chronically ill;cognitively impaired;dependent with mobility/activities of daily living;physical impairment Discharge Disposition still a patient Current Health Outpatient/Agency/Support Group Needs assisted living facility (specify);half-way facility (specify);supervisor long goods acute care facility (specify);nursing home (specify) Anticipated Changes Related to Illness none Living Environment Transportation Available family or friend will provide;ambulance;van, wheelchair accessible Activity/Self Care Review of Systems Equipment Currently Used at Home none Goal: Interdisciplinary Rounds/Family Conf Outcome: Ongoing (Interventions Implemented as Appropriate) 11/23/172133 Interdisciplinary Rounds/Family Conf Participants nursing;occupational therapy;physical therapy;physician;patient;social work/services;dietitian/nutrition services;shoe caser Problem: Skin Integrity Impairment, Risk/Actual (Adult) Goal: Skin Integrity/Wound Healing Patient will demonstrate the desired outcomes by discharge/transition of care. Outcome: Ongoing (Interventions Implemented as Appropriate) 11/24/17 0505 Skin Integrity Impairment, Risk/Actual (Adult) Skin Integrity/Wound Healing making progress toward outcome * Plan of Care - Louis Doran PTA - 11/25/2017 10:30 AM EDT Physical Therapy Treatment Treatment Number PT: 12 Pertinent History of Current Problem: Pt is a 27 yo man with a history of resection of pituitary tumor, intraoperative hemorrhage and CVA, cognitive impairment, cortical blindness, partial L sided paralysis, seizure disorder, and panhypopituitarism (with DI, adrenal insufficiency, hypothyroidism, hy pogonadism) here with a left acetabular fracture that occurred in the setting of a possible seizure. Precautions/Restrictions: fall, weight bearing Precautions Comments: WBAT L LE Assessment: Pt seen for functional mobility, strength, endurance and pt education. Pt agreeable andfollowing directions today, able to ambulate further distances in the // bars, frequent cues to place more weight on L LE. Able to perform exercises with light resistance on L LE as well. Encourage use of FWW for transfers as pt will weight bear through UE's and if using hand hold assist pt will heavily weight bear on caregivers/staff. Please see the flow sheet below for patient details and mobility. Pt would benefit from ongoing physical therapy interventions. Staff Mobility Recommendations: Stand pivot transfers with FWW and frequent cues Anticipated Discharge Disposition: half-way facility (could go to handicap accesible nursing home with assistance) LOUIS DORAN PTA Pager: [phone] Inpatient Physical Therapy 11/25/17 1036 Rehab Evaluation Document Type therapy note (daily note) Total Evaluation Minutes, Physical Therapy 45 (TE-F x 3) Patient Effort good Symptoms Noted During/After Treatment fatigue General Information Patient/Family/Caregiver Comments/Observations Followed directions well, at times pulling off gown but agreeable to putting back on Pertinent History of Current Problem Pt is a 27 yo man with a history of resection of pituitary tumor, intraoperative hemorrhage and CVA, cognitive impairment, cortical blindness, partial L sided paralysis, seizure disorder, and panhypopituitarism (with DI, adrenal insufficiency, hypothyroidism, hyp ogonadism) here with a left acetabular fracture that occurred in the setting of a possible seizure. Precautions/Restrictions fall;weight bearing Precautions Comments WBAT L LE Limitations/Impairments safety/cognitive Treatment Number PT 12 Pain Scale/Rating Pain Assessment Scale Word (verbal rating pain scale) Pain Level (frequently reported no pain) Bed Mobility Assessment/Treatment Sjpaoz-aq-Fsa [place] (Bed Mobility) moderate assist (50% patient effort) Osk-eg-Zbbdrs [place] (Bed Mobility) minimum assist (75% patient effort) Impairments (Bed Mobility) vision impaired Comment (Bed Mobility) Extra time required, able to reposition himself in bed Transfer Assessment/Treatment Bed-Chair [place] (Transfers) moderate assist (50% patient effort);2 person assist required Chair-Bed [place] (Transfers) moderate assist (50% patient effort);2 person assist required [id number] Assistive Device (Transfers) (B hand hold) [place] (Sit-Stand Transfers) contact guard assist [place] (Stand-Sit Transfers) contact guard assist Gbk-Qcofk-Veb Assistive Device (Transfers) (// bars) [place] (Toilet Transfers) minimum assist (75% patient effort);2 person assist required Assistive Device (Toilet Transfers) bedside commode Safety Issues (Transfers) balance decreased during turns Impairments (Transfers) balance impaired;vision impaired Comment (Transfers) When transferring with a FWW pt tends to place weight through the people assisting him, with FWW pt places weight through arms into FWW. Performs sqaut pivot transfers moderately well, encourage FWW use if needs to stand for any period of time Gait Assessment/Treatment [place] (Gait) contact guard assist;2 person assist required Assistive Device (Gait) (// bars) Distance in Feet (Gait) 80 ft, 20 ft Deviations (Gait) carmen decreased;step length decreased;weight-shifting ability decreased Maintain Weight Bearing Status (Gait) able to maintain weight bearing status Safety Issues (Gait) balance decreased during turns;step length decreased;weight-shifting ability decreased Impairments (Gait) balance impaired;vision impaired Comment (Gait) Cues for increased weight bearing on L LE, placing heel on floor. Pt intermittently able to place increased weight on L LE Therapeutic Exercise Comment (Therapeutic Exercise) L knee extension/flexion with slight manual resistance, seated leg extension with slight resistance Plan of Care Review Plan Of Care Reviewed With patient;caregiver Bed Mobility Goal Bed Mobility Goal, Date Established 09/09/17 Bed Mobility Goal, Time to Achieve by discharge Bed Mobility Goal, Activity Type all bed mobility activities Bed Mobility Goal, [place] Level moderate assist (50% patient effort) Bed Mobility Goal, Outcome Achieved goal ongoing Gait Training Goal Gait Training Goal, Date Established 09/09/17 Gait Training Goal, Time to Achieve by discharge Gait Training Goal, [place] Level minimum assist (75% patient effort) Gait Training Goal, Assist Device walker, rolling Gait Training Goal, Distance to Achieve 15 ft Gait Training Goal, Outcome goal ongoing Transfer Training Goal Transfer Training Goal, Date Established 09/09/17 Transfer Training Goal, Time to Achieve by discharge Transfer Training Goal, Activity Type ysp-ib-zexsa/sdnip-fe-pcl;hbz-yr-ovqjm/fuxvb-tw-nrd Transfer Train Goal, [place] Level minimum assist (75% patient effort) Transfer Training Goal, Assist Device walker, rolling Transfer Training Goal, Outcome goal ongoing Physical Therapy Goal PT Goal, Date Established 09/09/17 PT Goal, Time to Achieve by discharge PT Goal, Activity Type Pt will propel self in w/c household distances PT Goal, [place] Level set up required;supervision required PT Goal, Outcome goal ongoing Clinical Impression Therapy Frequency 2-4 times/wk Anticipated Discharge Disposition half-way facility (could go to handicap accesible nursing home with assistance) * Plan of Care - Shruti Lozoya RN - 11/25/2017 4:14 AM EDT Problem: Patient Care Overview Goal: Plan of Care Review Outcome: Ongoing (Interventions Implemented as Appropriate) 11/25/17 0401 Coping/Psychosocial Plan Of Care Reviewed With patient Plan of Care Review Progress progress towards functional goals is fair OUTCOME EVALUATION NOTE: OUTCOME SUMMARY: Pt admitted 09/02/17 after seizure and fall with subsequent L hip fx. Pt is s/p ORIF repair and is stable, awaiting placement at this time. Pt currently in net bed and has bedside sitter. Pt was agitated and restless from [id number] and then seemed to calm down and rest after hs medsgiven as ordered. No prn haldol used this shift. Pt was tachy with HR up to 130's when agitated. Ptdoes calm somewhat with verbal cueing, reassurance, food and drink. Pt able to follow some commandsand used urinal this evening. Also episodes of large incontinence, + flatus. Abdomen is firm with +bowel sounds. PRN miralax given at hs, await results. Will continue to monitor for agitation and pain and will medicate as needed. PLAN MOVING FORWARD: Closely monitor VS, labs, assessments. Medicate as ordered and as needed. Continue net bed and 1:1 sitter. Await placement when bed available. INDIVIDUALIZED FALL PREVENTION INTERVENTIONS: Patient-specific fall risk factors per assessment: [current deficits]: Weakness, cognitive decline,blindness Assistance [level of assistance required for transfers and ambulation]: 2 assist and walker to transfer and ambulate Supervision [direct monitoring required during toileting and ADLs]: Urinal for voiding, incontinentat times, 1-2 assist for ADLs Surveillance [continuous indirect monitoring]: Hourly rounding, sitter at bedside Patient-specific fall prevention interventions for sensory deficits provided, if applicable: [X] Yes, call morris within easy reach, side rails up, net bed, sitter at bedside, nonslip socks on if OOB, PT consult CPG GOAL OUTCOME EVALUATION: * Plan of Care - Nickie Zamora RN - 11/24/2017 6:30 PM EDT Problem: Patient Care Overview Goal: Plan of Care Review Outcome: Ongoing (Interventions Implemented as Appropriate) 11/24/17 0538 11/24/17 1000 Coping/Psychosocial Plan Of Care Reviewed With -- patient Plan of Care Review Progress progress towards functional goals is fair -- OUTCOME EVALUATION NOTE: OUTCOME SUMMARY: Patient alert, agitated, and restless. ISHAAN orientation. VSS. See doc flow for assessment. Patient calling out for most of the day. Screaming and hitting and threatening staff. Patient pivoted to the commode once today 2-3 max assist. Patient was incontinent of urine x2. Patient remained in netbed with a 1:1 sitter and caregiver at the bedside for the shift. Patient did sit up in the chair for several hours until his left ankle became edemanus and painful. Haldol given x2 for agitation with no real effect. Hydromorphone given x1 for increased pain with no real effect. No acute changes, will continue to monitor. PLAN MOVING FORWARD: Placement INDIVIDUALIZED FALL PREVENTION INTERVENTIONS: Patient-specific fall risk factors per assessment: [current deficits]: Generalized weakness, agitation Assistance [level of assistance required for transfers and ambulation]: 2-3 max assist. Supervision [direct monitoring required during toileting and ADLs]: Hands on Surveillance [continuous indirect monitoring]: 1:1 sitter, net bed. Patient-specific fall prevention interventions for sensory deficits provided, if applicable: [X] Yes CPG GOAL OUTCOME EVALUATION: Goal: Individualization & Mutuality Outcome: Ongoing (Interventions Implemented as Appropriate) 10/17/17 1745 11/05/17 0354 11/18/17 0546 Individualization Patient Specific Preferences -- sitter at bedside, cluster care -- Patient Specific Goals -- maintain safety plan, limit interuptions -- Patient Specific Interventions -- -- 3500 ml fluid restriction Mutuality/Individual Preferences What Anxieties, Fears or Concerns Do You Have About Your Health or Care? ISHAAN -- -- What Questions Do You Have About Your Health or Care? ISHAAN -- -- What Information Would Help Us Give You More Personalized Care? -- -- Sister, Bettina, is his guardian Goal: Fall Prevention-Safe Patient Handling Outcome: Ongoing (Interventions Implemented as Appropriate) 11/23/17213611/24/17 1000 11/24/17 1800 Restraint Interventions Safety Promotion/Fall Prevention -- -- activity supervised;fall prevention program maintained;safety round/check completed Activity Activity Type activity adjusted per tolerance;ambulated in room;ROM, active encouraged;sitting, edge of bed -- -- Activity Assistance Provided assistance, 2 people -- -- Assistive Device Utilized front-wheel walker -- -- Positioning Body Position -- -- independent Daily Care Interventions Self-Care Promotion independence encouraged;BADL personal objects within reach;BADL personal routines maintained;safe use of adaptive equipment encouraged -- -- [place] Fall Risk History of Falling -- 25 -- Secondary Diagnosis -- 15 -- Ambulatory Aids -- 0 -- Intravenous Therapy/Heparin/Saline Lock -- 20 -- Gait/Transferring -- 20 -- Mental Status -- 15 -- Score -- 95 -- OTHER [place] Fall Risk -- High -- Goal: Infection Control Outcome: Ongoing (Interventions Implemented as Appropriate) 11/23/17213511/24/17 1000 Coping Strategies Supportive Measures -- active listening utilized Safety Interventions Isolation Precautions standard precautions maintained -- Infection Prevention environmental surveillance performed;single patient room provided;visitors restricted/screened -- Goal: Discharge Needs Assessment Outcome: Ongoing (Interventions Implemented as Appropriate) 11/23/172134 Discharge Needs Assessment Concerns To Be Addressed adjustment to diagnosis/illness concerns;basic needs concerns;care coordination/care conferences;cognitive/perceptual concerns;discharge planning concerns;home safety concerns Readmission Within The Last 30 Days no previous admission in last 30 days Provider Choice List(s) Given no Equipment Needed After Discharge walker, rolling;commode;wheelchair Discharge Facility/Level Of Care Needs assisted living facility;rehabilitation facility;nursing facility, skilled;nursing facility, basic;adult foster care/nursing home Current Discharge Risk chronically ill;cognitively impaired;dependent with mobility/activities of daily living;physical impairment Discharge Disposition still a patient Current Health Outpatient/Agency/Support Group Needs assisted living facility (specify);half-way facility (specify);supervisor long goods acute care facility (specify);nursing home (specify) Anticipated Changes Related to Illness none Living Environment Transportation Available family or friend will provide;ambulance;van, wheelchair accessible Activity/Self Care Review of Systems Equipment Currently Used at Home none Goal: Interdisciplinary Rounds/Family Conf Outcome: Ongoing (Interventions Implemented as Appropriate) 11/23/17 2134 Interdisciplinary Rounds/Family Conf Participants nursing;occupational therapy;physical therapy;physician;patient;social work/services;dietitian/nutrition services;shoe caser Problem: Skin Integrity Impairment, Risk/Actual (Adult) Goal: Skin Integrity/Wound Healing Patient will demonstrate the desired outcomes by discharge/transition of care. Outcome: Ongoing (Interventions Implemented as Appropriate) 11/24/17 0505 Skin Integrity Impairment, Risk/Actual (Adult) Skin Integrity/Wound Healing making progress toward outcome * Plan of Care - Shruti Lozoya RN - 11/24/2017 6:08 AM EDT Problem: Patient Care Overview Goal: Plan of Care Review Outcome: Ongoing (Interventions Implemented as Appropriate) 11/24/17 0538 Coping/Psychosocial Plan Of Care Reviewed With patient Plan of Care Review Progress progress towards functional goals is fair OUTCOME EVALUATION NOTE: OUTCOME SUMMARY: Pt admitted 09/02/17 with seizures, fall and subsequent L hip fx, s/p ORIF R hip. Pt improving with hip fx, moving all extremities and denies pain. Continues to experience some restlessness, yelling out and moaning at times. Easily calmed and reassured with touch and talking. Pt also responds well to offers of food but needs limitation. VSS overnight. Incontinent of large volumes of urine, smear of stool overnight. 1:1 sitter present at bedside and net bed in use. L hip incisionC/D/I, ZULMA. Will continue to monitor and await placement. PLAN MOVING FORWARD: Closely monitor VS, labs, assessments. Medicate as ordered and as needed. Continue net bed and 1:1 sitter. Await placement when bed available. INDIVIDUALIZED FALL PREVENTION INTERVENTIONS: Patient-specific fall risk factors per assessment: [current deficits]: Weakness, baseline cognitivechanges Assistance [level of assistance required for transfers and ambulation]: 2 assist and FWW if OOB fortransfers and ambulation Supervision [direct monitoring required during toileting and ADLs]: Hands on if OOB for toileting, 1-2 assist for ADLs Surveillance [continuous indirect monitoring]: Hourly rounding, sitter at bedside Patient-specific fall prevention interventions for sensory deficits provided, if applicable: [X] Yes, call morris within easy reach, net bed, nonslip socks on if OOB, PT consult CPG GOAL OUTCOME EVALUATION: * Plan of Care - Carolin Bella RN - 11/23/2017 9:39 PM EDT Problem: Patient Care Overview Goal: Plan of Care Review Outcome: Ongoing (Interventions Implemented as Appropriate) 11/23/17 2981 Coping/Psychosocial Plan Of Care Reviewed With patient;caregiver;daughter;family;guardian;friend Plan of Care Review Progress progress towards functional goals is fair OUTCOME EVALUATION NOTE: ?? OUTCOME SUMMARY: Upon initial assessment, patient alert and oriented to self and place but unable to answer any other orientation questions. He continues to have frequent periods of agitation and yelling out which wecontinue to try and manage with distraction/favorite activities, out of bed to chair/sitting on edge of bed, and emotional support/positive reinforcement. Patient continues to say no when asked if he has any pain however, moans, grimaces, and cries with any activity or movement. It is unclear if this reaction is related to pain/discomfort or inability to express his needs/frustration. The patient's scheduled Dilaudid was decreased today and he did receive one dose of PRN Dilaudid this afternoon. It is very difficult to assess whether or not this is effective or not. We continue to use non-narcotic pain management interventions as well however, patient did not tolerate application of Lidoderm patch this afternoon. The patient seemed much more agitated frustrated today. Per caregivers, patient does have some agitation and inconsolability at home but is usually redirectable. They say that he typically begins yell and scream around the same time (late afternoon) at home. He became very agitated and combative after having an episode of stool incontinence in the chair. He was biting/hitting, screaming, and would not allow staff to help him get cleaned-up. We were able to get him cleaned-up after some time though but he continued to have intermittent episodes of aggression towards staff. He received PRN medications for agitation but no significant effect. Dr. Sanchez notified and aware; reporting this has been the patient's pattern recently. We continue to promote scheduled toileting to decrease incontinence and related agitation, post-void residual checked and 40 mLs, daily elimination of bowels promotedwith PRN medications, and stimuli adjusted frequently to meet patient's needs. His abdomen is very hard/firm and slightly distended but he continues to deny any pain upon palpation or nausea. He tends to have frequent bouts of belching and passing flatus but was given his PRN Simethicone this afternoon. PLAN MOVING FORWARD: ?? We will continue to promote proper sleep/wake cycle, promote patient's daily routine (i.e. scheduled toileting/out of bed for meals), and manage pain/agitation. Patient's plan is to be discharged to long-term care facility once medically ready and bed available. ?? INDIVIDUALIZED FALL PREVENTION INTERVENTIONS: ?? Patient-specific fall risk factors per assessment: [current deficits]: It is difficult for patient to use assistive devices appropriately due to cognitive impairment and blindness however, he can stand-pivot from the bed to chair/commode. ?? Assistance [level of assistance required for transfers and ambulation]: Patient requires a 2-personassist, stand-pivot from bed to chair/commode and does move around frequently in the net bed. ?? Supervision [direct monitoring required during toileting and ADLs]: Patient requires hands on supervision at this time. ?? Surveillance [continuous indirect monitoring]: Patient remains in the net bed with a 1:1 sitter at all times. He also receives hourly rounding by nursing staff. ?? Patient-specific fall prevention interventions for sensory deficits provided, if applicable: [X] Yes. ? CPG GOAL OUTCOME EVALUATION: * Plan of Care - Carolin Blela RN - 11/22/2017 8:36 PM EDT Problem: Patient Care Overview Goal: Plan of Care Review Outcome: Ongoing (Interventions Implemented as Appropriate) 11/22/172033 Coping/Psychosocial Plan Of Care Reviewed With patient;caregiver;sibling;durable power of high rigger;guardian;family Plan of Care Review Progress progress towards functional goals is fair OUTCOME EVALUATION NOTE: OUTCOME SUMMARY: Upon initial assessment, patient alert and oriented to self and place but unable to answer any other orientation questions. He does have intermittent periods of agitation and yelling out but for the most part we have been able to calm the patient down with distraction/activities, position changes/out of bed to the chair, and incontinence care. He denies any pain but does frequently moan/cry out and rub his left hip. Patient receives scheduled Tylenol and Dilaudid, Lidoderm patch applied this evening. He remains weight-bearing as tolerated on his left lower extremity. He is a heavy stand-pivotfrom the bed to commode/chair and would benefit from using the walker but has been unable to due toconfusion. He does follow commands but will now lift his right lower extremity off the ground to take a step. It seems that this could be related to pain with full weight bearing on left lower extremity however, it is unclear. We have been promoting activity and out of bed though. The patient sat in the chair for all his meals and we have been attempting scheduled toileting to promote continence on the commode. The patient was continent of a large bowel movement on the commode this afternoon. Patient continues to have urine incontinence but is voiding adequate amounts; unable to obtain PVR due to agitation. Fluid restriction maintained and sodium checked this afternoon and 140. Patient's com pliance with obtaining vital signs remains poor but we were able to get them once today. His blood pressure and heart rate were elevated however, he was agitated at the time. PLAN MOVING FORWARD: We will continue to promote proper sleep/wake cycle, promote patient's daily routine (i.e. scheduled toileting/out of bed for meals), and manage pain/agitation. Patient's plan is to be discharged to long-term care facility once medically ready and bed available. INDIVIDUALIZED FALL PREVENTION INTERVENTIONS: Patient-specific fall risk factors per assessment: [current deficits]: It is difficult for patient to use assistive devices appropriately due to cognitive impairment and blindness however, he can stand-pivot from the bed to chair/commode. Assistance [level of assistance required for transfers and ambulation]: Patient requires a 2-personassist, stand-pivot from bed to chair/commode and does move around frequently in the net bed. Supervision [direct monitoring required during toileting and ADLs]: Patient requires hands on supervision at this time. Surveillance [continuous indirect monitoring]: Patient remains in the net bed with a 1:1 sitter at all times. He also receives hourly rounding by nursing staff. Patient-specific fall prevention interventions for sensory deficits provided, if applicable: [X] Yes. CPG GOAL OUTCOME EVALUATION: * Plan of Care - Mariposa Harkins RN - 11/22/2017 5:21 AM EDT Problem: Patient Care Overview Goal: Plan of Care Review Outcome: Ongoing (Interventions Implemented as Appropriate) ?? 11/19/17 1543 11/21/17 1000 Coping/Psychosocial Plan Of Care Reviewed With -- patient Plan of Care Review Progress no change -- ?? OUTCOME EVALUATION NOTE: ?? OUTCOME SUMMARY: Patient continues to yell and scream continuously until 2am. Trazadone, seroquel and melatonin, didnot seem to help the patient sleep. He did not fall asleep until 2:00-2:30 am. Sitter at the bedside, assessment as documented. Continue to monitor for changes. ?? PLAN MOVING FORWARD: Sitter and net bed for safety ?? INDIVIDUALIZED FALL PREVENTION INTERVENTIONS: ?? Patient-specific fall risk factors per assessment: [current deficits]: Confusion, blindness, weakness. ?? Assistance [level of assistance required for transfers and ambulation]: 2 assist ?? Supervision [direct monitoring required during toileting and ADLs]: Eyes and hands on. ?? Surveillance [continuous indirect monitoring]: Sitter at all times. net bed. ?? Patient-specific fall prevention interventions for sensory deficits provided, if applicable: ? CPG GOAL OUTCOME EVALUATION: ?? * Plan of Care - Kaela Norwood RN - 11/21/2017 6:19 PM EDT Problem: Patient Care Overview Goal: Plan of Care Review Outcome: Ongoing (Interventions Implemented as Appropriate) 11/19/17 1543 11/21/17 1000 Coping/Psychosocial Plan Of Care Reviewed With -- patient Plan of Care Review Progress no change -- OUTCOME EVALUATION NOTE: OUTCOME SUMMARY: Pt was alert this shift. Unable to answer most questions. Will say yes, no, please and thank you onoccasion. PRN PO pain medications given x1. Caregiver and sitter at the bedside for the shift. Pt was anxious most of the afternoon but did sleep this morning. Will continue to monitor. PLAN MOVING FORWARD: Continue with sitter and net bed. INDIVIDUALIZED FALL PREVENTION INTERVENTIONS: Patient-specific fall risk factors per assessment: [current deficits]: Generalized weakness and confusion. Assistance [level of assistance required for transfers and ambulation]: x1-x2 Supervision [direct monitoring required during toileting and ADLs]: Eyes and hands on. Surveillance [continuous indirect monitoring]: Sitter at all times. No cords. No alarms, net bed. Patient-specific fall prevention interventions for sensory deficits provided, if applicable: [X] Yes CPG GOAL OUTCOME EVALUATION: * Plan of Care - Mariposa Harkins RN - 11/21/2017 4:35 AM EDT em: Patient Care Overview Goal: Plan of Care Review Outcome: Ongoing (Interventions Implemented as Appropriate) ?? 11/19/17 1543 11/20/17 0900 Coping/Psychosocial Plan Of Care Reviewed With -- patient;caregiver Plan of Care Review Progress no change -- ?? OUTCOME EVALUATION NOTE: ?? OUTCOME SUMMARY: Patient very agitated, yelling/screaming for the first 2 hrs of the shift, then fell asleep, probably from exhaustion due to lack of sleep from the previous 2 shifts. Medications were attempted, but patient still too agitated. He fell asleep for most of the night, waking at 4 am when he began yelling again. Some of the medications were taken with pudding without difficulty. Incontinent of urine several times during the shift. Assessment as documented. Continue to provide sitterand emotional support. ?? PLAN MOVING FORWARD: Net bed, medications, sitter? INDIVIDUALIZED FALL PREVENTION INTERVENTIONS: ?? Patient-specific fall risk factors per assessment: [current deficits]: Confusion, blind, poor judgement ?? Assistance [level of assistance required for transfers and ambulation]: 2 assist ?? Supervision [direct monitoring required during toileting and ADLs]: Incontinent ?? Surveillance [continuous indirect monitoring]: Hourly rounding, sitter at bedside ?? Patient-specific fall prevention interventions for sensory deficits provided, if applicable: yes, blind ? CPG GOAL OUTCOME EVALUATION: ?? * Plan of Care - Yuki Coates RN - 11/20/2017 9:51 PM EDT Problem: Patient Care Overview Goal: Plan of Care Review Outcome: Ongoing (Interventions Implemented as Appropriate) 11/19/17 1543 11/20/17 0900 Coping/Psychosocial Plan Of Care Reviewed With -- patient;caregiver Plan of Care Review Progress no change -- OUTCOME EVALUATION NOTE: OUTCOME SUMMARY: Patient with a sitter all shift, and rn medicare from nursing home at bedside. Patient extremely agitated all shift, very difficult to redirect behaviors, patient becam aggressive at times, pinching, hitting and attempting to bite. Refused labs x 2, alert to self only. Unabe to reliably take direction. PRN haldol, trazdone, miralax, dilaudid and simethicone met with minimal results. Patient continues to be incontinent of urine. For safety reasons due to patients proclivity to put limbs in metal side rails patient was moved to net bed. No changes in patient behaviors noted after movement to net bed. Patient yelled most of the shift, all efforts to determine cause of patient's anxiety met without success. PLAN MOVING FORWARD: Medical stability INDIVIDUALIZED FALL PREVENTION INTERVENTIONS: sitter, call morris, bed alarm, frequent rounding, eyeson Patient-specific fall risk factors per assessment: [current deficits]: Impulsivity, non weight bearing to left leg, cognitive impairment Assistance [level of assistance required for transfers and ambulation]: Heavy two assist Supervision [direct monitoring required during toileting and ADLs]: Heavy two assist Surveillance [continuous indirect monitoring]: Purposeful rounding Patient-specific fall prevention interventions for sensory deficits provided, if applicable: CPG GOAL OUTCOME EVALUATION: * Consult Note - Aniket Anders RN - 11/20/2017 12:44 PM EDT Certified Wound Care Nurse Note Situation: Asked to see Miguel Angel Mason by Emy Vásquez RN for Unable to keep pt clothed or keep fitted sheet on bed without pt pulling clothes & fitted sheet off the bed shortly after. ??Worried about friction & shear w/ no sheet on mattress, any recommendations would be appreciated. Background: [facility] notes reviewed for history, admitting diagnosis and active problem list. RN and SCREENER AND BLENDER's state noskin issues at this time. Wound Assessment and Care Provided: Patient was seen in room 155-A in bed, he currently has a sitter and is constantly moving and calling out. RN stated she has medicated him for pain. Patient is without clothes as he takes them off, RN states patient shreds any sheets that are on, he did have a blanket with him. Heels, elbows, sacral and back skin intact and skin toned. Baljeet Score: 15 Last Pressure Ulcer Prevention assessment: Shift Pressure Injury Prevention Occiput: No Injury Thoracic Spine: No Injury Sacral: No Injury Ischial - left: No Injury Ischial - right: No Injury Heel - left: No Injury Heel - right: No Injury Elbow - left: No Injury Elbow - right: No Injury Device Sites: no devices Other Sites: ID bands Nutritional Status Wt Readings from Last 1 Encounters: 09/04/17 86.6 kg (191 lb) There is no height or weight on file to calculate BMI. Labs Lab Results Component Value Date ALBUMIN 2.5 (L) 09/06/2017 ALBUMIN 2.4 (L) 09/06/2017 ALBUMIN 2.6 (L) 09/06/2017 WBC 5.7 11/14/2017 WBC 6.6 10/22/2017 WBC 6.4 10/05/2017 HGB 11.5 (L) 11/14/2017 HGB 12.9 (L) 10/22/2017 HGB 11.1 (L) 10/05/2017 HCT 37.4 (L) 11/14/2017 HCT 40.5 10/22/2017 HCT 38.6 (L) 10/05/2017 Nutritional Intake Nutrition Assessments Diet/Nutrition Prescription: regular, restrict fluids Specialty Diet/Nutrition Prescription: (4500 FR) Diet/Feeding Assistance: assisted with feeding Diet/Feeding Tolerance: good Intake (%): 100% Fluids: adequate Fluids Requirement: PO Nutrition Risk Screen (admission and every 4 days/sig change): no indicators present Nutrition Interventions Nutrition Interventions: diet liberalized, food preferences provided Oral Nutrition Promotion: rest periods promoted Current bed: [facility] - RN has requested a net bed. Assessment: Patient is without skin injury at this time. Use of skin prep to elbows and heels may decrease friction. Wound Care Recommendations: Refer to adult/pediatric pressure ulcer prevention job aid in the clinical policy library highlighting the following points: Friction and Shear: Reposition avoiding shear forces, utilizing maxislide, trendelenberg and max inflate (boost) feature on beds to assist with repositioning. Position hips at triangle icon on bed. Use skin prep on heels and elbows bid. Keep HOB less than or equal to 30 degrees. Use Nourishing Skin Cream after baths for extra dry skin Return to using a sheet when patient is calmer. Discussed plan with: RN: Yuki Coates Please contact ANIKET ANDERS RN on pager [phone] or the wound care team at [phone] or pager [phone] with skin and wound care concerns or questions. * Plan of Care - Mary Jo Haro RN - 11/20/2017 8:01 AM EDT Problem: Patient Care Overview Goal: Plan of Care Review Outcome: Ongoing (Interventions Implemented as Appropriate) 11/19/17 1543 Coping/Psychosocial Plan Of Care Reviewed With patient;caregiver Plan of Care Review Progress no change OUTCOME EVALUATION NOTE: OUTCOME SUMMARY: Pt alert, ISHAAN orientation. VSS. See doc flows for system assessments. Pt quiet/ sleeping for most of shift. Pt continues to rip/pull out pads and sheets that are underneath him despite reinforcement.No adverse events for shift. Sitter at bedside maintained PLAN MOVING FORWARD: Maintain safety, monitor IO INDIVIDUALIZED FALL PREVENTION INTERVENTIONS: Patient-specific fall risk factors per assessment: [current deficits]: Mobility at baseline, blind Assistance [level of assistance required for transfers and ambulation]: 2 assist Supervision [direct monitoring required during toileting and ADLs]: Eyes on / hands on Surveillance [continuous indirect monitoring]: Call morris within reach, hourly rounding, bed alarm on Patient-specific fall prevention interventions for sensory deficits provided, if applicable: [X] Yes CPG GOAL OUTCOME EVALUATION: * Plan of Care - Emy Vásquez RN - 11/19/2017 7:27 PM EDT Problem: Patient Care Overview Goal: Plan of Care Review Outcome: Ongoing (Interventions Implemented as Appropriate) 11/19/17 1543 Coping/Psychosocial Plan Of Care Reviewed With patient;caregiver Plan of Care Review Progress no change OUTCOME EVALUATION NOTE: OUTCOME SUMMARY: Alert, disoriented to time & situation. Able to state he is in the hospital. Continues w/ restlessness, frequently yelling out & pulling at clothes and linens - Wound care consult placed for recommendations regarding skin breakdown w/ bare mattress. VSS on RA, firing SIRs x1 this afternoon,MD notified - work up deferred. Does not tolerate masimo, sats stable w/ spot checks. Intermittently reporting pain to L hip, scheduled dilaudid given as ordered & bengay applied. Prn dilaudid given x2 w/ fair effect. 1x BMP obtained d/t Na <135 this a.m. (monitoring Na w/ desmopressin), seeresults review. Per MD, all 3 doses desmopressin given despite Na being <135. FR decreased to 2800cc, see I&O. Caregiver & sitter remain at bedside. Safety maintained. Will continue to karoline brandon & notify MD of any changes. PLAN MOVING FORWARD: PT/OT Monitor labs Restrict fluids, I&O INDIVIDUALIZED FALL PREVENTION INTERVENTIONS: Patient-specific fall risk factors per assessment: [current deficits]: High fall risk - generalizedweakness, impaired mobility, history of falls, medical equipment Assistance [level of assistance required for transfers and ambulation]: Heavy 2A Supervision [direct monitoring required during toileting and ADLs]: Eyes on/hands on Surveillance [continuous indirect monitoring]: Sitter at bedside, purposeful rounding, room near unit station Patient-specific fall prevention interventions for sensory deficits provided, if applicable: [X] Yes CPG GOAL OUTCOME EVALUATION: * Plan of Care - Mary Jo Haro RN - 11/19/2017 6:15 AM EDT Problem: Patient Care Overview Goal: Plan of Care Review Outcome: Ongoing (Interventions Implemented as Appropriate) 11/18/17 0547 11/18/17 2100 Coping/Psychosocial Plan Of Care Reviewed With -- patient Plan of Care Review Progress no change -- OUTCOME EVALUATION NOTE: OUTCOME SUMMARY: Pt awake, ISHAAN orientation. VSS. See doc flows for system assessments. Sitter present at bedside. Fluid restriction maintained. Pt continues to yelling out loudly without any indication of distress orpain despite follow-up questions. Pt observed to rip sheets/blankets - needs reinforcement. Will continue to monitor. PLAN MOVING FORWARD: Maintain safety, monitor IO, activity as tolerated INDIVIDUALIZED FALL PREVENTION INTERVENTIONS: Patient-specific fall risk factors per assessment: [current deficits]: Blind at baseline, NWB to L leg, mobility at baseline Assistance [level of assistance required for transfers and ambulation]: 2 assist Supervision [direct monitoring required during toileting and ADLs]: Hands on Surveillance [continuous indirect monitoring]: Hourly rounding, bed alarm on, room near nurses station, call morris within reach Patient-specific fall prevention interventions for sensory deficits provided, if applicable: [X] Yes CPG GOAL OUTCOME EVALUATION: * Plan of Care - Mavis Byers RN - 11/18/2017 4:53 PM EDT Problem: Patient Care Overview Goal: Plan of Care Review Outcome: Ongoing (Interventions Implemented as Appropriate) 11/17/17 0800 11/18/17 0547 Coping/Psychosocial Plan Of Care Reviewed With patient -- Plan of Care Review Progress -- no change OUTCOME EVALUATION NOTE: OUTCOME SUMMARY: Pt is alert, only oriented to self. VSS. Physical assessment as documented. Intermittently able to voice needs/concerns. Hip x-ray done this morning; tolerated well. Pt was sleepy this morning, but as the day progressed pt became more agitated and inconsolable at times. BM today. Voided twice. No acute events, will continue to monitor. PLAN MOVING FORWARD: Continue bedside sitter. Monitor I &O. Assess skin. Monitor VS INDIVIDUALIZED FALL PREVENTION INTERVENTIONS: Patient-specific fall risk factors per assessment: [current deficits]: IV, masimo, weakness, diagnosis, blind, history of falls, Assistance [level of assistance required for transfers and ambulation]: 2-assist Supervision [direct monitoring required during toileting and ADLs]: Hands on Surveillance [continuous indirect monitoring]: Bed sitter, hourly rounding Patient-specific fall prevention interventions for sensory deficits provided, if applicable: [X] Yes, sitter at bedside, Caregiver at bedside CPG GOAL OUTCOME EVALUATION: * Plan of Care - Genevieve Lebron RN - 11/18/2017 6:01 AM EDT Problem: Patient Care Overview Goal: Plan of Care Review Outcome: Ongoing (Interventions Implemented as Appropriate) 11/18/17 0547 Plan of Care Review Progress no change OUTCOME EVALUATION NOTE: OUTCOME SUMMARY: Pt has had a quiet night, and pt has slept most of it. Pt wakes for medications and when turned. Ptincontinent of large amount of urine. Pt was able to say he was in the hospital and that Bettina bunnis sister. Fluid restriction maintained. Sitter with pt overnight to maintain a safe environment for pt. PLAN MOVING FORWARD: Continue per plans and orders. Emotional support. Continue with the sitter to provide a safe environment. INDIVIDUALIZED FALL PREVENTION INTERVENTIONS: Patient-specific fall risk factors per assessment: [current deficits]: High fall risk r/t h/o falls, mentation/communication , recent acetabular fracture, Assistance [level of assistance required for transfers and ambulation]: Two assist Supervision [direct monitoring required during toileting and ADLs]: Hands on Surveillance [continuous indirect monitoring]: Purposeful rounding, sitter with pt all times Patient-specific fall prevention interventions for sensory deficits provided, if applicable: Yes, appropriate lighting, cueing regarding location of things as pt is legally blind, non-skid slippers on when OOB. CPG GOAL OUTCOME EVALUATION: * Plan of Care - Herve Chambers RN - 11/17/2017 7:55 PM EDT Problem: Patient Care Overview Goal: Plan of Care Review Outcome: Ongoing (Interventions Implemented as Appropriate) 11/10/17200011/17/17 0800 Coping/Psychosocial Plan Of Care Reviewed With -- patient Plan of Care Review Progress no change -- OUTCOME EVALUATION NOTE: OUTCOME SUMMARY: 27 s/p surgical repair of right leg PLAN MOVING FORWARD: Keep safe and mobilize INDIVIDUALIZED FALL PREVENTION INTERVENTIONS Patient-specific fall risk factors per assessment: [current deficits]: Pt impulsive and fell on floor this afternoon Assistance [level of assistance required for transfers and ambulation]: 2 assist with care Supervision [direct monitoring required during toileting and ADLs]: Sitter at bedside Surveillance [continuous indirect monitoring]: Pain, infection and mobility Patient-specific fall prevention interventions for sensory deficits provided, if applicable: [X] Yes CPG GOAL OUTCOME EVALUATION: Goal: Individualization & Mutuality Outcome: Ongoing (Interventions Implemented as Appropriate) 10/17/17 1745 11/05/17 0354 Individualization Patient Specific Preferences -- sitter at bedside, cluster care Patient Specific Goals -- maintain safety plan, limit interuptions Patient Specific Interventions -- 3200 cc fluid restriction Mutuality/Individual Preferences What Anxieties, Fears or Concerns Do You Have About Your Health or Care? ISHAAN -- What Questions Do You Have About Your Health or Care? ISHAAN -- What Information Would Help Us Give You More Personalized Care? ISHAAN -- Goal: Fall Prevention-Safe Patient Handling Outcome: Ongoing (Interventions Implemented as Appropriate) 11/17/17 0800 11/17/17 1900 Restraint Interventions Safety Promotion/Fall Prevention -- safety round/check completed;nonskid shoes/slippers when out ofbed;fall prevention program maintained;activity supervised Activity Activity Type -- activity adjusted per tolerance Activity Assistance Provided -- assistance, 2 people Assistive Device Utilized -- none Positioning Body Position -- independent Daily Care Interventions Self-Care Promotion -- independence encouraged [place] Fall Risk History of Falling 25 -- Secondary Diagnosis 15 -- Ambulatory Aids 0 -- Intravenous Therapy/Heparin/Saline Lock 0 -- Gait/Transferring 20 -- Mental Status 15 -- Score 75 -- OTHER [place] Fall Risk High -- Goal: Infection Control Outcome: Ongoing (Interventions Implemented as Appropriate) 11/17/17 0811/17/17 190 Coping Strategies Supportive Measures active listening utilized;decision-making supported;goal setting facilitated;positive reinforcement provided;problem solving facilitated -- Safety Interventions Isolation Precautions -- standard precautions maintained Infection Prevention -- environmental surveillance performed;rest/sleep promoted;single patient room provided Goal: Discharge Needs Assessment Outcome: Ongoing (Interventions Implemented as Appropriate) 11/05/17 0354 11/05/17181811/17/171827 Discharge Needs Assessment Concerns To Be Addressed -- -- discharge planning concerns;coping/stress concerns;cognitive/perceptual concerns Readmission Within The Last 30 Days -- no previous admission in last 30 days -- Equipment Needed After Discharge (no specialty bed) -- -- Discharge Facility/Level Of Care Needs -- adult foster care/nursing home -- Current Discharge Risk -- cognitively impaired;physical impairment -- Discharge Disposition -- still a patient -- Current Health Outpatient/Agency/Support Group Needs -- nursing home (specify) -- Anticipated Changes Related to Illness -- none -- Living Environment Transportation Available -- car -- Activity/Self Care Review of Systems Equipment Currently Used at Home -- none -- * Plan of Care - Herve Chambers RN - 11/17/2017 6:55 PM EDT Problem: Patient Care Overview Goal: Discharge Needs Assessment Outcome: Ongoing (Interventions Implemented as Appropriate) 11/17/171827 Discharge Needs Assessment Concerns To Be Addressed discharge planning concerns;coping/stress concerns;cognitive/perceptual concerns * Plan of Care - Priscilla Motley RN - 11/17/2017 5:19 AM EDT Problem: Patient Care Overview Goal: Plan of Care Review Outcome: Ongoing (Interventions Implemented as Appropriate) 11/10/17200011/16/17 2133 Coping/Psychosocial Plan Of Care Reviewed With -- patient Plan of Care Review Progress no change -- OUTCOME EVALUATION NOTE: OUTCOME SUMMARY: Pt alert, unable to assess orientation. Pt sleeping between care, assessment as filed. Encouraged PO fluid intake overnight, PRN miralax administered (see MAR). Sitter at bedside. 4 side rail pt restraint ordered d/t pt safety concerns. Documentation completed per protocol. No acute events, will continue to monitor and page with updates. PLAN MOVING FORWARD: Sitter, PO intake, monitor Na INDIVIDUALIZED FALL PREVENTION INTERVENTIONS: Patient-specific fall risk factors per assessment: [current deficits]: Unable to follow commands, weakness, impaired mobility Assistance [level of assistance required for transfers and ambulation]: 2 assist Supervision [direct monitoring required during toileting and ADLs]: Hands on Surveillance [continuous indirect monitoring]: Purposeful hourly rounding, bed alarm on, call morris within reach, sitter at bedside Patient-specific fall prevention interventions for sensory deficits provided, if applicable: [X] N/A CPG GOAL OUTCOME EVALUATION: * Plan of Care - Vandana Jean Bapitste RN - 11/16/2017 6:21 PM EDT Problem: Patient Care Overview Goal: Plan of Care Review Outcome: Ongoing (Interventions Implemented as Appropriate) 11/10/17200011/16/17 0900 Coping/Psychosocial Plan Of Care Reviewed With -- patient;caregiver Plan of Care Review Progress no change -- OUTCOME EVALUATION NOTE: OUTCOME SUMMARY: Pt alert, HR arturo, aware. Pt seemed more agitated today. We were unable to get labs because of the increased agitation. Continue encouraging PO fluids. Pt was able to urinate on the commode twicetoday. PRN pain meds given, tolerated well. No acute changes. PLAN MOVING FORWARD: Continue PO fluids, continue to monitor and assess. INDIVIDUALIZED FALL PREVENTION INTERVENTIONS: Patient-specific fall risk factors per assessment: [current deficits]: High fall risk Assistance [level of assistance required for transfers and ambulation]: 2 assist Supervision [direct monitoring required during toileting and ADLs]: Hands on Surveillance [continuous indirect monitoring]: Bed left in lowest position, sitter at bedside, hourly rounding Patient-specific fall prevention interventions for sensory deficits provided, if applicable: [X] N/A CPG GOAL OUTCOME EVALUATION: * Plan of Care - Priscilla Motley RN - 11/16/2017 4:37 AM EDT Problem: Patient Care Overview Goal: Plan of Care Review Outcome: Ongoing (Interventions Implemented as Appropriate) 11/10/17200011/15/174 Coping/Psychosocial Plan Of Care Reviewed With -- patient Plan of Care Review Progress no change -- OUTCOME EVALUATION NOTE: OUTCOME SUMMARY: Pt alert, unable to assess orientation over shift. VSS. PRN dilaudid PO administered for pain (see MAR). Sitter at bedside. Pt met 4500 fluid restriction max over shift (see I&O doc flow). Pt hadnot voided over shift, bladder scan showed 425mLs. Per MD order, scheduled PO dilauded administeredan hour before due (see MAR). Straight cath order obtained, straight cathed x2 unsuccessful attempts and x1 successful attempt. Drained 680mLs, UA sent. Pt sleeping between care, assessment as filed.No acute events, will continue to monitor and page with updates. PLAN MOVING FORWARD: Sitter maintained, monitor Na, encourage PO fluid intake, monitor output INDIVIDUALIZED FALL PREVENTION INTERVENTIONS: Patient-specific fall risk factors per assessment: [current deficits]: Unable to follow commands, pain, weakness Assistance [level of assistance required for transfers and ambulation]: 2 assist Supervision [direct monitoring required during toileting and ADLs]: Hands on Surveillance [continuous indirect monitoring]: Purposeful hourly rounding, bed alarm on, call morris within reach, sitter at bedside Patient-specific fall prevention interventions for sensory deficits provided, if applicable: [X] N/A CPG GOAL OUTCOME EVALUATION: * Plan of Care - Vandana Jean Baptiste RN - 11/15/2017 6:34 PM EDT Problem: Patient Care Overview Goal: Plan of Care Review Outcome: Ongoing (Interventions Implemented as Appropriate) 11/10/17200011/15/17 0852 Coping/Psychosocial Plan Of Care Reviewed With -- patient;caregiver Plan of Care Review Progress no change -- OUTCOME EVALUATION NOTE: OUTCOME SUMMARY: Pt is alert, B/P and HR have been elevated, MD aware, scheduled pain meds given, tolerated well. Ptwas incontinent once through shift, using commode approprietly. PLAN MOVING FORWARD: Obtain a urin sample, continue to monitor and assess. INDIVIDUALIZED FALL PREVENTION INTERVENTIONS: Patient-specific fall risk factors per assessment: [current deficits]: High fall risk Assistance [level of assistance required for transfers and ambulation]: 2 assist Supervision [direct monitoring required during toileting and ADLs]: Hands on Surveillance [continuous indirect monitoring]: Hourly rounding, bed left in lowest position, sitterat bedside. Patient-specific fall prevention interventions for sensory deficits provided, if applicable: [X] N/A CPG GOAL OUTCOME EVALUATION: * Consult Note - Latrice Rudolph RN - 11/15/2017 10:08 AM EDT Request made by RN caring for pt for possible IV placement. Pt with recent history of kicking, biting, hitting of staff per RN. RN also unsure of tolerance of IV, if pt would leave in place. Pt has areported TBI, with caregiver in room. Also spoke with Dr Aguilar regarding safety concerns for pt and staff. Vas will be paged if IV is needed.Current plan for IV placement if indicated: Vas will send two IV nurses for placement, Rn caring for pt will also need to be in the room for IV placement tohelp ensure safety for staff and patient. * Plan of Care - Priscilla Motley RN - 11/15/2017 5:19 AM EDT Problem: Patient Care Overview Goal: Plan of Care Review Outcome: Ongoing (Interventions Implemented as Appropriate) 11/10/17200011/14/17 2311 Coping/Psychosocial Plan Of Care Reviewed With -- patient Plan of Care Review Progress no change -- OUTCOME EVALUATION NOTE: OUTCOME SUMMARY: Pt alert, unable to answer orientation questions. Pt requests more pudding, will sometimes answer yes and no, will often call out but is comforted by talk and touch. Sitter at bedside. Pt sleeping between care, assessment as filed. No acute events, will continue to monitor and page with updates. PLAN MOVING FORWARD: Pain management, incontinence care INDIVIDUALIZED FALL PREVENTION INTERVENTIONS: Patient-specific fall risk factors per assessment: [current deficits]: Unable to follow commands, weakness Assistance [level of assistance required for transfers and ambulation]: 2 assist Supervision [direct monitoring required during toileting and ADLs]: Hands on Surveillance [continuous indirect monitoring]: Purposeful hourly rounding, bed alarm on, call morris within reach, rings appropriately Patient-specific fall prevention interventions for sensory deficits provided, if applicable: [X] N/A CPG GOAL OUTCOME EVALUATION: * Plan of Care - Kristin Smith RN - 11/14/2017 7:34 PM EDT Problem: Patient Care Overview Goal: Plan of Care Review Outcome: Ongoing (Interventions Implemented as Appropriate) 11/10/17200011/14/17 0830 Coping/Psychosocial Plan Of Care Reviewed With -- patient;caregiver Plan of Care Review Progress no change -- OUTCOME EVALUATION NOTE: OUTCOME SUMMARY: Pt able to state his name. VSS. Has been restless throughout the day. PRN Dilaudid administered x1 for increased moaning and crying, average effect noted. Has been incontinent of urine x3 today. PO intake remains adequate. Unable to administer PM dose of Lovenox due to restless movement and agitation. Frequent redirecting needed. Sitter remains at bedside. No other acute events to note at this time. Pt is currently in bed with eyes closed. Bed alarm set and sitter at bedside. Will continue to monitor and notify MD of any changes. PLAN MOVING FORWARD: Pain management, redirection as needed, fluid restriction INDIVIDUALIZED FALL PREVENTION INTERVENTIONS: Patient-specific fall risk factors per assessment: [current deficits]: NWB LLE, pain Assistance [level of assistance required for transfers and ambulation]: x2 assist Supervision [direct monitoring required during toileting and ADLs]: Hands on Surveillance [continuous indirect monitoring]: Bed alarm set, call light within reach, sitter at bedside, room near nurses station Patient-specific fall prevention interventions for sensory deficits provided, if applicable: [X] Yes CPG GOAL OUTCOME EVALUATION: * Plan of Care - Garret Barrera RN - 11/14/2017 2:16 AM EDT Problem: Patient Care Overview Goal: Plan of Care Review Outcome: Ongoing (Interventions Implemented as Appropriate) 11/10/17200011/13/17 2100 Coping/Psychosocial Plan Of Care Reviewed With -- patient Plan of Care Review Progress no change -- OUTCOME EVALUATION NOTE: OUTCOME SUMMARY:Patient has been sleeping throughout the majority of the night. Appears more comfortable than previous night. Incontinent of urine. Care delivered as appropriate. PRN Dilaudid x1 withgood effect. Sitter remains @ bedside. No acute issues noted, overnight. PLAN MOVING FORWARD: Will continue to monitor, offer assistance, maintain safety with 1:1 sitter, offer assistance, and otherwise tx as necessary/ordered. INDIVIDUALIZED FALL PREVENTION INTERVENTIONS: Patient-specific fall risk factors per assessment: [current deficits]: Blind, cognitive impairment,generalized weakness, recent acetabular fx Assistance [level of assistance required for transfers and ambulation]: 2 assist Supervision [direct monitoring required during toileting and ADLs]: Hands on/eyes on with all transfers/oob Surveillance [continuous indirect monitoring]: Bed alarm, bedside sitter, purposeful rounding Patient-specific fall prevention interventions for sensory deficits provided, if applicable: [X] No CPG GOAL OUTCOME EVALUATION: Goal: Individualization & Mutuality Outcome: Ongoing (Interventions Implemented as Appropriate) 10/17/17 1745 11/05/17 0354 Individualization Patient Specific Preferences -- sitter at bedside, cluster care Patient Specific Goals -- maintain safety plan, limit interuptions Patient Specific Interventions -- 3200 cc fluid restriction Mutuality/Individual Preferences What Anxieties, Fears or Concerns Do You Have About Your Health or Care? ISHAAN -- What Questions Do You Have About Your Health or Care? ISHAAN -- What Information Would Help Us Give You More Personalized Care? ISHAAN -- Goal: Fall Prevention-Safe Patient Handling Outcome: Ongoing (Interventions Implemented as Appropriate) 11/13/17 2100 Restraint Interventions Safety Promotion/Fall Prevention activity supervised Activity Activity Type activity adjusted per tolerance Activity Assistance Provided assistance, 2 people Assistive Device Utilized standard walker Positioning Body Position independent Daily Care Interventions Self-Care Promotion independence encouraged [place] Fall Risk History of Falling 25 Secondary Diagnosis 15 Ambulatory Aids 15 Intravenous Therapy/Heparin/Saline Lock 0 Gait/Transferring 20 Mental Status 15 Score 90 OTHER [place] Fall Risk High Goal: Infection Control Outcome: Ongoing (Interventions Implemented as Appropriate) 11/13/17 2100 Coping Strategies Supportive Measures positive reinforcement provided Safety Interventions Isolation Precautions standard precautions maintained Infection Prevention rest/sleep promoted Goal: Discharge Needs Assessment Outcome: Ongoing (Interventions Implemented as Appropriate) 11/05/17 0354 11/05/17 1819 Discharge Needs Assessment Concerns To Be Addressed -- no discharge needs identified Readmission Within The Last 30 Days -- no previous admission in last 30 days Equipment Needed After Discharge (no specialty bed) -- Discharge Facility/Level Of Care Needs -- adult foster care/nursing home Current Discharge Risk -- cognitively impaired;physical impairment Discharge Disposition -- still a patient Current Health Outpatient/Agency/Support Group Needs -- nursing home (specify) Anticipated Changes Related to Illness -- none Living Environment Transportation Available -- car Activity/Self Care Review of Systems Equipment Currently Used at Home -- none Goal: Interdisciplinary Rounds/Family Conf Outcome: Ongoing (Interventions Implemented as Appropriate) 11/04/17 1448 Interdisciplinary Rounds/Family Conf Participants nursing;patient Problem: Skin Integrity Impairment, Risk/Actual (Adult) Goal: Skin Integrity/Wound Healing Patient will demonstrate the desired outcomes by discharge/transition of care. Outcome: Ongoing (Interventions Implemented as Appropriate) 11/13/17 1350 Skin Integrity Impairment, Risk/Actual (Adult) Skin Integrity/Wound Healing making progress toward outcome * Plan of Care - Adia Clarke RN - 11/13/2017 1:58 PM EDT Problem: Patient Care Overview Goal: Plan of Care Review Outcome: Ongoing (Interventions Implemented as Appropriate) OUTCOME EVALUATION NOTE: OUTCOME SUMMARY: A+O to self. Pt in wheelchair and around unit today, tolerated well. Pt more cooperative today and receptive to this rn medicare. Sitter at bedside. PLAN MOVING FORWARD: Continue to monitor and treat pain as needed. INDIVIDUALIZED FALL PREVENTION INTERVENTIONS: Patient-specific fall risk factors per assessment: [current deficits]: Pt is a high fall risk due to weakness and confusion. Assistance [level of assistance required for transfers and ambulation]: 2 assist stand pivot, NWB to left leg Supervision [direct monitoring required during toileting and ADLs]: Hands on Surveillance [continuous indirect monitoring]: Hourly rounding, call light within reach, pt calls appropriately, nonskid socks when out of bed, sitter at bedside. Patient-specific fall prevention interventions for sensory deficits provided, if applicable: [X] N/A CPG GOAL OUTCOME EVALUATION: * Plan of Care - Garret Barrera RN - 11/13/2017 5:01 AM EDT Problem: Patient Care Overview Goal: Plan of Care Review Outcome: Ongoing (Interventions Implemented as Appropriate) 11/10/17200011/12/171951 Coping/Psychosocial Plan Of Care Reviewed With -- patient Plan of Care Review Progress no change -- OUTCOME EVALUATION NOTE: OUTCOME SUMMARY: Patient agitated and restless throughout the night. Scheduled Dilaudid did not seem to help. PRN Dilaudid was administered, along with simethicone, as patient was flatulent, and it was thought that he could be having abdominal discomfort. Of note, he produced a large formed BM earlier in the night. Both PRNs seemed to have little effect. Spoke with MD (Mercedez) who then order 1x additional Dilaudid, which was then administered. Patient was then able to commence sleep. Continues with Bedside sitter. No other acute issues noted, overnight. PLAN MOVING FORWARD: Will continue to monitor, bedside sitter, administer pain meds, offer assistance, and otherwise tx as necessary/ordered. INDIVIDUALIZED FALL PREVENTION INTERVENTIONS: Patient-specific fall risk factors per assessment: [current deficits]: Confused, blind, generalizedweakness, recent hip fx. Assistance [level of assistance required for transfers and ambulation]: 2 assist Supervision [direct monitoring required during toileting and ADLs]: Hands on/eyes on with all transfers/oob Surveillance [continuous indirect monitoring]: Bed alarm, bedside sitter, purposeful rounding Patient-specific fall prevention interventions for sensory deficits provided, if applicable: [X] No CPG GOAL OUTCOME EVALUATION: Goal: Individualization & Mutuality Outcome: Ongoing (Interventions Implemented as Appropriate) 10/17/17174411/05/17353 Individualization Patient Specific Preferences -- sitter at bedside, cluster care Patient Specific Goals -- maintain safety plan, limit interuptions Patient Specific Interventions -- 3200 cc fluid restriction Mutuality/Individual Preferences What Anxieties, Fears or Concerns Do You Have About Your Health or Care? ISHAAN -- What Questions Do You Have About Your Health or Care? ISHAAN -- What Information Would Help Us Give You More Personalized Care? ISHAAN -- Goal: Fall Prevention-Safe Patient Handling Outcome: Ongoing (Interventions Implemented as Appropriate) 11/12/1779911/12/171951 Restraint Interventions Safety Promotion/Fall Prevention -- activity supervised Activity Activity Type -- activity adjusted per tolerance Activity Assistance Provided -- assistance, 1 person;assistance, 2 people Assistive Device Utilized standard walker -- Positioning Body Position -- independent Daily Care Interventions Self-Care Promotion -- independence encouraged;BADL personal objects within reach [place] Fall Risk History of Falling -- 25 Secondary Diagnosis -- 15 Ambulatory Aids -- 15 Intravenous Therapy/Heparin/Saline Lock -- 0 Gait/Transferring -- 20 Mental Status -- 15 Score -- 90 OTHER [place] Fall Risk -- High Goal: Infection Control Outcome: Ongoing (Interventions Implemented as Appropriate) 11/12/1779911/12/171951 Coping Strategies Supportive Measures active listening utilized;self-care encouraged;verbalization of feelings encouraged -- Safety Interventions Isolation Precautions -- standard precautions maintained Infection Prevention -- rest/sleep promoted;single patient room provided Goal: Discharge Needs Assessment Outcome: Ongoing (Interventions Implemented as Appropriate) 11/05/1735311/05/171818 Discharge Needs Assessment Concerns To Be Addressed -- no discharge needs identified Readmission Within The Last 30 Days -- no previous admission in last 30 days Equipment Needed After Discharge (no specialty bed) -- Discharge Facility/Level Of Care Needs -- adult foster care/nursing home Current Discharge Risk -- cognitively impaired;physical impairment Discharge Disposition -- still a patient Current Health Outpatient/Agency/Support Group Needs -- nursing home (specify) Anticipated Changes Related to Illness -- none Living Environment Transportation Available -- car Activity/Self Care Review of Systems Equipment Currently Used at Home -- none Goal: Interdisciplinary Rounds/Family Conf Outcome: Ongoing (Interventions Implemented as Appropriate) 11/04/17 1448 Interdisciplinary Rounds/Family Conf Participants nursing;patient Problem: Skin Integrity Impairment, Risk/Actual (Adult) Goal: Skin Integrity/Wound Healing Patient will demonstrate the desired outcomes by discharge/transition of care. Outcome: Ongoing (Interventions Implemented as Appropriate) 11/12/17 1605 Skin Integrity Impairment, Risk/Actual (Adult) Skin Integrity/Wound Healing making progress toward outcome * Plan of Care - Adia Clarke RN - 11/12/2017 4:20 PM EDT Problem: Patient Care Overview Goal: Plan of Care Review Outcome: Ongoing (Interventions Implemented as Appropriate) OUTCOME EVALUATION NOTE: OUTCOME SUMMARY: A+oriented to self. VSS. Caregiver at bedside throughout the shift. Pt continues to be behavioral, mostly redirectable. Pt continues to call out in pain, scheduled dilaudid increased. Per caregiver pt yells out for attention and should not reward behavior; ask pt to stop yelling and ask for what hewants and pt responds much better. PLAN MOVING FORWARD: Continue pain medication. Continue NWB status. Continue 1:1 sitter. INDIVIDUALIZED FALL PREVENTION INTERVENTIONS: Patient-specific fall risk factors per assessment: [current deficits]: Pt is a high fall risk due to recent injury and fall history Assistance [level of assistance required for transfers and ambulation]: 2 assist stand pivot Supervision [direct monitoring required during toileting and ADLs]: Hands on Surveillance [continuous indirect monitoring]: Hourly rounding, call light within reach, pt calls appropriately, nonskid socks when out of bed, 1:1 sitter at bedside. Patient-specific fall prevention interventions for sensory deficits provided, if applicable: [X] N/A CPG GOAL OUTCOME EVALUATION: * Plan of Care - Louis Doran PTA - 11/12/2017 10:40 AM EDT Physical Therapy Treatment Treatment Number PT: 11 Pertinent History of Current Problem: Pt is a 27 yo man with a history of resection of pituitary tumor, intraoperative hemorrhage and CVA, cognitive impairment, cortical blindness, partial L sided paralysis, seizure disorder, and panhypopituitarism (with DI, adrenal insufficiency, hypothyroidism, hy pogonadism) here with a left acetabular fracture that occurred in the setting of a possible seizure. Precautions/Restrictions: fall, weight bearing Precautions Comments: TDWB L LE. L sided weaker than R at baseline. Blind Assessment: Pt seen for functional mobility, strength, endurance and pt education. Initially pt cooperative and performed several transfers and ambulation with FWW and cues. As session went on pt became less agreeable, yelling more and attempting to tear off gown. Attempted redirection but eventually brought pt back to room where pt did not appear to be safe staying in the w/c. With extra time ptagreeable to get back to bed, stood up impulsively several feet away and required Max A x 2 to makesure pt got to the edge of the bed. When ambulating pt did well with chair follow and one assist, encouraged out of bed more frequently to engage and stimulate pt with games/activities. Please see the flow sheet below for patient details and mobility. Pt would benefit from ongoing physical therapy interventions. Staff Mobility Recommendations: Stand pivot with 2 assist and FWW Anticipated Discharge Disposition: half-way facility (could go to handicap accesible nursing home with assistance) LOUIS DORAN PTA Pager: [phone] Inpatient Physical Therapy 11/12/17 1040 Rehab Evaluation Document Type therapy note (daily note) Total Evaluation Minutes, Physical Therapy 45 (TE-F x 3) Patient Effort good Symptoms Noted During/After Treatment fatigue;increased pain General Information Patient/Family/Caregiver Comments/Observations Increased agitation today, yelling more, less cooperative Pertinent History of Current Problem Pt is a 27 yo man with a history of resection of pituitary tumor, intraoperative hemorrhage and CVA, cognitive impairment, cortical blindness, partial L sided paralysis, seizure disorder, and panhypopituitarism (with DI, adrenal insufficiency, hypothyroidism, hyp ogonadism) here with a left acetabular fracture that occurred in the setting of a possible seizure. Precautions/Restrictions fall;weight bearing Precautions Comments TDWB L LE. L sided weaker than R at baseline. Blind Limitations/Impairments safety/cognitive Treatment Number PT 11 Pain Scale/Rating Pain Assessment Scale Word (verbal rating pain scale) Pain Level (reports no pain when asked) Bed Mobility Assessment/Treatment Ogwyog-ph-Xdm [place] (Bed Mobility) moderate assist (50% patient effort) Dyt-zc-Wacwjx [place] (Bed Mobility) minimum assist (75% patient effort) Comment (Bed Mobility) extra time required to get pt back into bed, pt would slouch in chair almostto the point of sliding out, but then would refuse to transfer out of the chair. Eventually able toget back to bed with Max A x 2 as pt stood too far away from bed and walker was not available Transfer Assessment/Treatment Bed-Chair [place] (Transfers) minimum assist (75% patient effort);2 person assist required Chair-Bed [place] (Transfers) maximum assist (25% patient effort);2 person assist required Rbt-Irzzt-Ojo Assistive Device (Transfers) rolling walker [place] (Sit-Stand Transfers) minimum assist (75% patient effort);2 person assist required [place] (Stand-Sit Transfers) minimum assist (75% patient effort);2 person assist required Rmd-Sqdxk-Doi Assistive Device (Transfers) rolling walker [place] (Toilet Transfers) minimum assist (75% patient effort) Assistive Device (Toilet Transfers) bedside commode;rolling walker Maintain Weight Bearing Status (Transfers) able to maintain weight bearing status Safety Issues (Transfers) balance decreased during turns Impairments (Transfers) balance impaired;vision impaired Comment (Transfers) Initially cooperative and transferred well with FWW and frequent cues, as session progressed pt became less cooperative and would kick the walker away when placed in front of him Gait Assessment/Treatment [place] (Gait) minimum assist (75% patient effort) Assistive Device (Gait) rolling walker Distance in Feet (Gait) 35 ft x 2 Gait Pattern Analysis swing-to gait Maintain Weight Bearing Status (Gait) able to maintain weight bearing status Safety Issues (Gait) balance decreased during turns Impairments (Gait) balance impaired;vision impaired Comment (Gait) w/c follow, frequent cues for direction and walker management, steady Wheelchair Training/Management Propulsion Training (Wheelchair) forward propulsion;steering wheelchair Propulsion Training Comment (Wheelchair) cues to follow voice to prevent pt from running into objects Distance Propelled in Feet (Wheelchair) 35 ft Plan of Care Review Plan Of Care Reviewed With patient;caregiver Bed Mobility Goal Bed Mobility Goal, Date Established 09/09/17 Bed Mobility Goal, Time to Achieve by discharge Bed Mobility Goal, Activity Type all bed mobility activities Bed Mobility Goal, [place] Level moderate assist (50% patient effort) Bed Mobility Goal, Outcome Achieved goal ongoing Gait Training Goal Gait Training Goal, Date Established 09/09/17 Gait Training Goal, Time to Achieve by discharge Gait Training Goal, [place] Level minimum assist (75% patient effort) Gait Training Goal, Assist Device walker, rolling Gait Training Goal, Distance to Achieve 15 ft Gait Training Goal, Outcome goal ongoing Transfer Training Goal Transfer Training Goal, Date Established 09/09/17 Transfer Training Goal, Time to Achieve by discharge Transfer Training Goal, Activity Type pvi-il-ckhwo/dipnz-uv-qyp;otu-lv-ivgys/rbzit-kv-esm Transfer Train Goal, [place] Level minimum assist (75% patient effort) Transfer Training Goal, Assist Device walker, rolling Transfer Training Goal, Outcome goal ongoing Physical Therapy Goal PT Goal, Date Established 09/09/17 PT Goal, Time to Achieve by discharge PT Goal, Activity Type Pt will propel self in w/c household distances PT Goal, [place] Level set up required;supervision required PT Goal, Outcome goal ongoing Clinical Impression Therapy Frequency 2-4 times/wk Anticipated Discharge Disposition half-way facility (could go to handicap accesible nursing home with assistance) * Plan of Care - Garret Barrera RN - 11/12/2017 4:45 AM EDT Problem: Patient Care Overview Goal: Plan of Care Review Outcome: Ongoing (Interventions Implemented as Appropriate) 11/10/17200011/11/171999 Coping/Psychosocial Plan Of Care Reviewed With -- patient;caregiver Plan of Care Review Progress no change -- OUTCOME EVALUATION NOTE: OUTCOME SUMMARY: Patient agitated and calling out earlier in the night. @ approximately 2200, he was able to fall asleep. Incontinent of urine, Care delivered as appropriate. Continues with bedside sitter. PRN Dilaudid administered for pain, with good effect. No acute issues noted, overnight. PLAN MOVING FORWARD: Will continue to monitor, 1:1 bedside slitter, incontinence care, offer assistance, and otherwise tx as necessary/ordered. INDIVIDUALIZED FALL PREVENTION INTERVENTIONS: Patient-specific fall risk factors per assessment: [current deficits]: Confused, recent hip fx Assistance [level of assistance required for transfers and ambulation]: 1-2 assist, 1:1 sitter Supervision [direct monitoring required during toileting and ADLs]: 1:1 sitter, hands on/eyes on with all transfers/oob Surveillance [continuous indirect monitoring]: Bed alarm, 1:1 sitter, Q 30 min check, purposeful rounding Patient-specific fall prevention interventions for sensory deficits provided, if applicable: [X] No CPG GOAL OUTCOME EVALUATION: Goal: Individualization & Mutuality Outcome: Ongoing (Interventions Implemented as Appropriate) 10/17/17 1745 11/05/17 0354 Individualization Patient Specific Preferences -- sitter at bedside, cluster care Patient Specific Goals -- maintain safety plan, limit interuptions Patient Specific Interventions -- 3200 cc fluid restriction Mutuality/Individual Preferences What Anxieties, Fears or Concerns Do You Have About Your Health or Care? ISHAAN -- What Questions Do You Have About Your Health or Care? ISHAAN -- What Information Would Help Us Give You More Personalized Care? ISHAAN -- Goal: Fall Prevention-Safe Patient Handling Outcome: Ongoing (Interventions Implemented as Appropriate) 11/11/171999 Restraint Interventions Safety Promotion/Fall Prevention activity supervised;fall prevention program maintained;nonskid shoes/slippers when out of bed Activity Activity Type activity adjusted per tolerance Activity Assistance Provided assistance, 1 person Assistive Device Utilized front-wheel walker Positioning Body Position independent Daily Care Interventions Self-Care Promotion independence encouraged;BADL personal objects within reach [place] Fall Risk History of Falling 25 Secondary Diagnosis 15 Ambulatory Aids 15 Intravenous Therapy/Heparin/Saline Lock 0 Gait/Transferring 10 Mental Status 15 Score 80 OTHER [place] Fall Risk High Goal: Infection Control Outcome: Ongoing (Interventions Implemented as Appropriate) 11/11/17 1145 11/11/171999 Coping Strategies Supportive Measures verbalization of feelings encouraged -- Safety Interventions Isolation Precautions -- standard precautions maintained Infection Prevention -- rest/sleep promoted;single patient room provided Goal: Discharge Needs Assessment Outcome: Ongoing (Interventions Implemented as Appropriate) 11/05/17 0354 11/05/17 1819 Discharge Needs Assessment Concerns To Be Addressed -- no discharge needs identified Readmission Within The Last 30 Days -- no previous admission in last 30 days Equipment Needed After Discharge (no specialty bed) -- Discharge Facility/Level Of Care Needs -- adult foster care/nursing home Current Discharge Risk -- cognitively impaired;physical impairment Discharge Disposition -- still a patient Current Health Outpatient/Agency/Support Group Needs -- nursing home (specify) Anticipated Changes Related to Illness -- none Living Environment Transportation Available -- car Activity/Self Care Review of Systems Equipment Currently Used at Home -- none Goal: Interdisciplinary Rounds/Family Conf Outcome: Ongoing (Interventions Implemented as Appropriate) 11/04/17 1448 Interdisciplinary Rounds/Family Conf Participants nursing;patient Problem: Skin Integrity Impairment, Risk/Actual (Adult) Goal: Skin Integrity/Wound Healing Patient will demonstrate the desired outcomes by discharge/transition of care. Outcome: Ongoing (Interventions Implemented as Appropriate) 11/08/17 1548 Skin Integrity Impairment, Risk/Actual (Adult) Skin Integrity/Wound Healing making progress toward outcome * Plan of Care - Priscilla Motley RN - 11/11/2017 4:51 AM EDT Problem: Patient Care Overview Goal: Plan of Care Review Outcome: Ongoing (Interventions Implemented as Appropriate) 11/10/17200011/10/17 2222 Coping/Psychosocial Plan Of Care Reviewed With -- patient;caregiver Plan of Care Review Progress no change -- OUTCOME EVALUATION NOTE: OUTCOME SUMMARY: Pt alert, unable to verbalize orientation. Pt sleeping between care, assessment as filed. Sitter atbedside. Pt intermittently moaning/crying out during night. No acute events, will continue to monitor and page with updates. PLAN MOVING FORWARD: Waiting placement INDIVIDUALIZED FALL PREVENTION INTERVENTIONS: Patient-specific fall risk factors per assessment: [current deficits]: Impaired mobility, unable tofollow commands Assistance [level of assistance required for transfers and ambulation]: 2 assist Supervision [direct monitoring required during toileting and ADLs]: Hands on Surveillance [continuous indirect monitoring]: Purposeful hourly rounding, bed alarm on, call morris within reach, sitter at bedside Patient-specific fall prevention interventions for sensory deficits provided, if applicable: [X] N/A CPG GOAL OUTCOME EVALUATION: * Plan of Care - Isabell Laureano RN - 11/10/2017 8:14 PM EDT Problem: Patient Care Overview Goal: Plan of Care Review Outcome: Ongoing (Interventions Implemented as Appropriate) 11/10/172000 Coping/Psychosocial Plan Of Care Reviewed With patient Plan of Care Review Progress no change OUTCOME EVALUATION NOTE: OUTCOME SUMMARY: Pt alert throughout most of the day, becoming agitated after lunch. Meds administered as scheduled.Tachycardic, VSS. No BM today, miralax prn administered. Pt had several episodes of self inflictingpain: biting finger, rolling over his foot with the wheelchair, pulling at his private parts -per ca regiver that is a baseline behavior of the pt. Pt had screaming/yelling period of 4 hours, difficult to redirect. Continue to monitor, safety maintained. PLAN MOVING FORWARD: Pain management, redirection. Encourage involvement with self care. INDIVIDUALIZED FALL PREVENTION INTERVENTIONS: Patient-specific fall risk factors per assessment: [current deficits]: Blindness, pain, NWB status. Assistance [level of assistance required for transfers and ambulation]: 1-2 people assist. Supervision [direct monitoring required during toileting and ADLs]: 1-2 people assist. Surveillance [continuous indirect monitoring]: Purposeful rounding, 1:1 observation. Patient-specific fall prevention interventions for sensory deficits provided, if applicable: [X] N/A CPG GOAL OUTCOME EVALUATION: Goal: Fall Prevention-Safe Patient Handling Outcome: Ongoing (Interventions Implemented as Appropriate) 11/08/17 0929 11/09/17 1614 11/10/17 0925 Restraint Interventions Safety Promotion/Fall Prevention -- -- activity supervised;fall prevention program maintained;muscle strengthening facilitated;safety round/check completed Activity Activity Type -- -- activity adjusted per tolerance Activity Assistance Provided -- -- assistance, 1 person;assistance, 2 people Assistive Device Utilized -- front-wheel walker -- Positioning Body Position -- -- independent Daily Care Interventions Self-Care Promotion independence encouraged -- -- [place] Fall Risk History of Falling -- -- 25 Secondary Diagnosis -- -- 15 Ambulatory Aids -- -- 15 Intravenous Therapy/Heparin/Saline Lock -- -- 0 Gait/Transferring -- -- 10 Mental Status -- -- 15 Score -- -- 80 OTHER [place] Fall Risk -- -- High Goal: Infection Control Outcome: Ongoing (Interventions Implemented as Appropriate) 11/09/17202911/10/17 09 Coping Strategies Supportive Measures relaxation techniques promoted -- Safety Interventions Isolation Precautions -- standard precautions maintained Infection Prevention -- environmental surveillance performed;rest/sleep promoted;single patient room provided * Plan of Care - Jolene Domínguez RN - 11/10/2017 6:20 AM EDT Problem: Patient Care Overview Goal: Plan of Care Review Outcome: Ongoing (Interventions Implemented as Appropriate) 11/05/17181911/09/172029 Coping/Psychosocial Plan Of Care Reviewed With -- patient Plan of Care Review Progress no change -- OUTCOME EVALUATION NOTE: OUTCOME SUMMARY: Pt alert and responding with one word answers intermittently throughout the shift. VSS. PRN dilaudid admin x2 (see MAR) for pain. PRN Haldol and ativan admin each x1 (see MAR) for agitation. Pt yelled/moaned out for approximately 3- 4 hours collectively throughout the shift. Incontinence care provided as needed. Sitter at bedside throughout the shift. Pt slept in between care. Safety maintained. No acute events. Will continue to monitor. PLAN MOVING FORWARD: Pain management Fluid Restriction Mobilize INDIVIDUALIZED FALL PREVENTION INTERVENTIONS: Patient-specific fall risk factors per assessment: [current deficits]: Generalized weakness, impaired cognition, narcotics Assistance [level of assistance required for transfers and ambulation]: 2 assist Supervision [direct monitoring required during toileting and ADLs]: hands on Surveillance [continuous indirect monitoring]: 1:1 sitter, purposeful rounding Patient-specific fall prevention interventions for sensory deficits provided, if applicable: [X] Yes CPG GOAL OUTCOME EVALUATION: * Plan of Care - Pamela Mei RN - 11/08/2017 9:20 PM EDT OUTCOME EVALUATION NOTE: ? OUTCOME SUMMARY: ? Patient responding with one word answers intermittently this shift and occasionally follows commands per baseline. Screaming and agitated at beginning of shift but settled down around 2200 with a restful night. Incisions??SUIT [employer]ER and well-approximated/healed. Sitter??at bedside throughout shift. Patient incontinent of urine/stool and??frequent edna care/bed changes done. PRN Haldol and Ativan administered per order (see MAR for details) for agitation. Fluid restriction maintained. PRN dilaudid administered per MD recommendation. ? PLAN MOVING FORWARD: ? Mobilize, pain control, skin surveillance, fluid restriction ? INDIVIDUALIZED FALL PREVENTION INTERVENTIONS: ? Patient-specific fall risk factors per assessment: [current deficits]:?Narcotics, tubing, generalized weakness, surgery ? Assistance [level of assistance required for transfers and ambulation]:?2 Assist Stand-Pivot??w/FWW ? Supervision [direct monitoring required during toileting and ADLs]:?Hands on w/ ADL's ? Surveillance [continuous indirect monitoring]:?Purposeful Rounding, Bed Alarm and Sitter ? Patient-specific fall prevention interventions for sensory deficits provided, if applicable:??N/A ? CPG GOAL OUTCOME EVALUATION:?Progress ? Problem: Patient Care Overview Goal: Plan of Care Review ? 10/03/17 0510 10/03/17 09 Coping/Psychosocial Plan Of Care Reviewed With -- patient;caregiver Plan of Care Review Progress no change -- ? Goal: Fall Prevention-Safe Patient Handling ? 10/03/17 0900 10/03/178 Restraint Interventions Safety Promotion/Fall Prevention activity supervised;fall prevention program maintained;nonskid shoes/slippers when out of bed -- Activity Activity Type -- activity adjusted per tolerance;stand at bedside Activity Assistance Provided -- assistance, 1 person Assistive Device Utilized -- four-wheel walker Positioning Body Position -- independent Daily Care Interventions Self-Care Promotion independence encouraged;BADL personal objects within reach;BADL personal routines maintained -- [place] Fall Risk History of Falling -- 25 Secondary Diagnosis -- 15 Ambulatory Aids -- 15 Intravenous Therapy/Heparin/Saline Lock -- 20 Gait/Transferring -- 20 Mental Status -- 0 Score -- 95 OTHER [place] Fall Risk -- High ? Goal: Infection Control ? 10/03/17 0900 Safety Interventions Isolation Precautions standard precautions maintained Infection Prevention environmental surveillance performed;rest/sleep promoted;single patient room provided Coping Strategies Supportive Measures positive reinforcement provided;relaxation techniques promoted;verbalization offeelings encouraged ? Goal: Discharge Needs Assessment ? 09/08/17 0403 09/18/17 1250 09/29/17 1939 Discharge Needs Assessment Concerns To Be Addressed -- -- no discharge needs identified Readmission Within The Last 30 Days -- -- no previous admission in last 30 days Equipment Needed After Discharge -- other (see comments) (TBD) -- Discharge Facility/Level Of Care Needs -- -- -- Current Discharge Risk -- cognitively impaired;physical impairment -- Discharge Disposition -- still a patient -- Current Health Outpatient/Agency/Support Group Needs -- nursing home (specify) -- Anticipated Changes Related to Illness none -- -- Living Environment Transportation Available -- car (caregiver from nursing home) -- Activity/Self Care Review of Systems Equipment Currently Used at Home -- none -- ? 10/03/17 1654 ? Discharge Needs Assessment ? Concerns To Be Addressed -- ? Readmission Within The Last 30 Days -- ? Equipment Needed After Discharge -- ? Discharge Facility/Level Of Care Needs adult foster care/nursing home ? Current Discharge Risk -- ? Discharge Disposition -- ? Current Health ? Outpatient/Agency/Support Group Needs -- ? Anticipated Changes Related to Illness -- ? Living Environment ? Transportation Available -- ? Activity/Self Care Review of Systems ? Equipment Currently Used at Home -- ? Problem: Skin Integrity Impairment, Risk/Actual (Adult) Goal: Skin Integrity/Wound Healing Patient will demonstrate the desired outcomes by discharge/transition of care. ? 10/03/17 0510 Skin Integrity Impairment, Risk/Actual (Adult) Skin Integrity/Wound Healing making progress toward outcome ? * Plan of Care - Diana Greco RN - 11/08/2017 4:03 PM EDT Problem: Patient Care Overview Goal: Plan of Care Review Outcome: Ongoing (Interventions Implemented as Appropriate) 11/05/17 1820 11/08/17 0929 Coping/Psychosocial Plan Of Care Reviewed With -- patient (rn medicare) Plan of Care Review Progress no change -- OUTCOME EVALUATION NOTE: ?? OUTCOME SUMMARY: ?? Pt resting between care. Sitter @ bedside. Pain controlled w/scheduled and prn meds. Incontinence care provided prn.Will continue to monitor. ?? PLAN MOVING FORWARD: ?? -Pain Control -Mobilize -d/c planning ?? INDIVIDUALIZED FALL PREVENTION: ?? Pt is at risk to fall due to weakness, touch down weight bearing LLE, medication regimen ?? Assistance: -2-assist with walker ?? Supervision: -Hands-on/eyes on for all transfers and ambulation ? Surveillance: -Purposeful Rounding -Team Care -Nurse Knowledge Exchange ? [facility] OUTCOME EVALUATION: * Plan of Care - Pamela Mei RN - 11/08/2017 6:59 AM EDT OUTCOME EVALUATION NOTE: ? OUTCOME SUMMARY: ? Patient responding with one word answers intermittently this shift and occasionally follows commands per baseline. Screaming throughout beginning of shift but slept well since 0200. Incisions SUIT MAKER andwell-approximated/healed. Sitter??at bedside throughout shift. Patient incontinent of urine/stool and frequent edna care/bed changes done. PRN Haldol and Ativan administered per order (see MAR for details) for agitation with minimal effect. Fluid restriction maintained. ? PLAN MOVING FORWARD: ? Mobilize, pain control, skin surveillance, fluid restriction ? INDIVIDUALIZED FALL PREVENTION INTERVENTIONS: ? Patient-specific fall risk factors per assessment: [current deficits]:?Narcotics, tubing, generalized weakness, surgery ? Assistance [level of assistance required for transfers and ambulation]:?2 Assist Stand-Pivot??w/FWW ? Supervision [direct monitoring required during toileting and ADLs]:?Hands on w/ ADL's ? Surveillance [continuous indirect monitoring]:?Purposeful Rounding, Bed Alarm and Sitter ? Patient-specific fall prevention interventions for sensory deficits provided, if applicable:??N/A ? CPG GOAL OUTCOME EVALUATION:?Progress ? Problem: Patient Care Overview Goal: Plan of Care Review ? 10/03/17 0510 10/03/17 09 Coping/Psychosocial Plan Of Care Reviewed With -- patient;caregiver Plan of Care Review Progress no change -- ? Goal: Fall Prevention-Safe Patient Handling ? 10/03/17 0900 10/03/17 2148 Restraint Interventions Safety Promotion/Fall Prevention activity supervised;fall prevention program maintained;nonskid shoes/slippers when out of bed -- Activity Activity Type -- activity adjusted per tolerance;stand at bedside Activity Assistance Provided -- assistance, 1 person Assistive Device Utilized -- four-wheel walker Positioning Body Position -- independent Daily Care Interventions Self-Care Promotion independence encouraged;BADL personal objects within reach;BADL personal routines maintained -- [place] Fall Risk History of Falling -- 25 Secondary Diagnosis -- 15 Ambulatory Aids -- 15 Intravenous Therapy/Heparin/Saline Lock -- 20 Gait/Transferring -- 20 Mental Status -- 0 Score -- 95 OTHER [place] Fall Risk -- High ? Goal: Infection Control ? 10/03/17 09 Safety Interventions Isolation Precautions standard precautions maintained Infection Prevention environmental surveillance performed;rest/sleep promoted;single patient room provided Coping Strategies Supportive Measures positive reinforcement provided;relaxation techniques promoted;verbalization offeelings encouraged ? Goal: Discharge Needs Assessment ? 09/08/17 0403 09/18/17 1250 09/29/17 1939 Discharge Needs Assessment Concerns To Be Addressed -- -- no discharge needs identified Readmission Within The Last 30 Days -- -- no previous admission in last 30 days Equipment Needed After Discharge -- other (see comments) (TBD) -- Discharge Facility/Level Of Care Needs -- -- -- Current Discharge Risk -- cognitively impaired;physical impairment -- Discharge Disposition -- still a patient -- Current Health Outpatient/Agency/Support Group Needs -- nursing home (specify) -- Anticipated Changes Related to Illness none -- -- Living Environment Transportation Available -- car (caregiver from nursing home) -- Activity/Self Care Review of Systems Equipment Currently Used at Home -- none -- ? 10/03/17 1654 ? Discharge Needs Assessment ? Concerns To Be Addressed -- ? Readmission Within The Last 30 Days -- ? Equipment Needed After Discharge -- ? Discharge Facility/Level Of Care Needs adult foster care/nursing home ? Current Discharge Risk -- ? Discharge Disposition -- ? Current Health ? Outpatient/Agency/Support Group Needs -- ? Anticipated Changes Related to Illness -- ? Living Environment ? Transportation Available -- ? Activity/Self Care Review of Systems ? Equipment Currently Used at Home -- ? Problem: Skin Integrity Impairment, Risk/Actual (Adult) Goal: Skin Integrity/Wound Healing Patient will demonstrate the desired outcomes by discharge/transition of care. ? 10/03/17 0510 Skin Integrity Impairment, Risk/Actual (Adult) Skin Integrity/Wound Healing making progress toward outcome ? * Plan of Care - Beverley Lara RN - 11/07/2017 5:08 PM EDT Problem: Patient Care Overview Goal: Plan of Care Review Outcome: Ongoing (Interventions Implemented as Appropriate) 11/05/17 1820 11/07/17 1030 Coping/Psychosocial Plan Of Care Reviewed With -- patient Plan of Care Review Progress no change -- OUTCOME EVALUATION NOTE: OUTCOME SUMMARY: Patient progressing at this time. VSS. Cardroom Manager at bedside continuously this shift. Urinary incontinence this shift. Patient able to rest between care. Will continue to monitor. PLAN MOVING FORWARD: OOB, strengthen. D/c safely when able. INDIVIDUALIZED FALL PREVENTION INTERVENTIONS: Patient-specific fall risk factors per assessment: [current deficits]: History of falls and seizure, generalized weakness, blindness, developmental delay Assistance [level of assistance required for transfers and ambulation]: 2 assist Supervision [direct monitoring required during toileting and ADLs]: Sitter at bedside Surveillance [continuous indirect monitoring]: Sitter at bedside Patient-specific fall prevention interventions for sensory deficits provided, if applicable: [X] Yes * Plan of Care - Ren Walters OTA - 11/07/2017 12:18 PM EDT Occupational Therapy Treatment Note Pertinent History of Current Problem: (P) Pt is a 27 yo man with a history of resection of pituitary tumor, intraoperative hemorrhage and CVA, cognitive impairment, cortical blindness, partial L sided paralysis, seizure disorder, and panhypopituitarism (with DI, adrenal insufficiency, hypothyroidism, hypogonadism) here with a left acetabular fracture that occurred in the setting of a possible seizure. Precautions/Restrictions: fall Precautions Comments: L side weaker than R at baseline. Blind. Assessment: Pt seen for skilled OT interventions. Today's session focussed on grooming and dressingactivities. Pt had just finished working hard with PT when OT began. Pt appeared more fatigued today than previous sessions. Pt was able to perform grooming and dressing activities with more encouragement and motivations than what was previously required. Pt will benefit from ongoing therapeutic interventions to achieve pt's and therapy goals. Please refer to associated flowsheet data listed below for treatment session details. Staff Recommendations: Encourage OOB activity and participation in all self care tasks Anticipated Discharge Disposition: (P) half-way facility Pager: [phone] ZULMA Vargas 11/07/2017 Occupational Therapy Rehabilitation Department 11/07/17 1210 Rehab Evaluation Document Type therapy note (daily note) Total Evaluation Minutes, Occupational Therapy 43 Patient Effort good Symptoms Noted During/After Treatment fatigue General Information Patient Profile Review yes Patient/Family/Caregiver Comments/Observations Pt more fatigue today than previous sessions General Observations of Patient Pt finishing with PT when OT began Pertinent History of Current Problem Pt is a 27 yo man with a history of resection of pituitary tumor, intraoperative hemorrhage and CVA, cognitive impairment, cortical blindness, partial L sided paralysis, seizure disorder, and panhypopituitarism (with DI, adrenal insufficiency, hypothyroidism, hyp ogonadism) here with a left acetabular fracture that occurred in the setting of a possible seizure. Hearing Precautions/Limitations WFL Treatment Number OT 13 Cognitive Assessment Interventions Behavior/Mood Observations (Cognitive) lethargic;cooperative Follows Commands/Answers Questions (Cognitive) 75% of the time;needs cueing;needs increased time;needs repetition Bed Mobility Assessment/Treatment Roll Right [place] (Bed Mobility) independent Transfer Assessment/Treatment [place] (Sit-Stand Transfers) minimum assist (75% patient effort) [place] (Stand-Sit Transfers) minimum assist (75% patient effort) Bxg-Lwzko-Elr Assistive Device (Transfers) rolling walker Iwg-Fzjdh-Ljw Assistive Device (Transfers) rolling walker Chair-Bed [place] (Transfers) minimum assist (75% patient effort);verbal cues required Upper Body Dressing Assessment/Training Position (UB Dressing) supported sitting [place] Level (UB Dressing) set up required Comment (UB Dressing) to trent kramer Lower Body Dressing Assessment/Training Position (LB Dressing) sitting;standing [place] Level (LB Dressing) set up required Impairments (LB Dressing) balance impaired;vision impaired;pain;ROM (range of motion) decreased Comment (LB Dressing) to trent flemings Grooming Assessment/Training Position (Grooming) supported sitting [place] Level (Grooming) set up required Comment (Grooming) to wash face, refused washing UB LB Dressing Goal LB Dressing Goal, Time to Achieve 2 wks LB Dressing Goal, Activity Type Pt will maintain weight bearing restrictions and be able to sustainstanding with 1 assist and walker as caregiver hikes pants to/from waist. LB Dressing Goal, Outcome goal ongoing Occupational Therapy Goal OT Goal, Time to Achieve 2 wks OT Goal, Activity Type Pt will tolerate sitting upright in chair for > 30 min for ther. activity/play task. OT Goal, Additional Goal Pt will tolerate >20 minutes of aerobic activity/UE exercise in order to increase general activity tolerance and performance in ADLs/IADLs. OT Goal, Outcome goal met Clinical Impression Criteria for Skilled Therapeutic Interventions Met treatment indicated Rehab Potential good, to achieve stated therapy goals Therapy Frequency 1-3 times/wk Anticipated Equipment Needs at Discharge (FWW, wheelchair, commode, shower seat) Anticipated Discharge Disposition half-way facility * Plan of Care - Louis Doran PTA - 11/07/2017 10:30 AM EDT Physical Therapy Treatment Treatment Number PT: 10 Pertinent History of Current Problem: Pt is a 27 yo man with a history of resection of pituitary tumor, intraoperative hemorrhage and CVA, cognitive impairment, cortical blindness, partial L sided paralysis, seizure disorder, and panhypopituitarism (with DI, adrenal insufficiency, hypothyroidism, hy pogonadism) here with a left acetabular fracture that occurred in the setting of a possible seizure. Precautions/Restrictions: fall, weight bearing Precautions Comments: TDWB L LE. L sided weaker than R at baseline. Blind Assessment: Pt seen for functional mobility, strength, endurance and pt education. Progressing ambulation distances with frequent cues for walker management and chair follow for safety. Difficulty with turning and backing up, not always able to follow cues occasionally sitting early and poor eccentric control sitting. Pt appeared lethargic after ambulating and caregiver reported he tends to get this way when the weather is poor. Please see the flow sheet below for patient details and mobility. Pt would benefit from ongoing physical therapy interventions. Staff Mobility Recommendations: Stand pivot transfers with 2 assist Anticipated Discharge Disposition: half-way facility (could go to handicap accesible nursing home with assistance) LOUIS DORAN PTA Pager: [phone] Inpatient Physical Therapy 11/07/17 1030 Rehab Evaluation Document Type therapy note (daily note) Total Evaluation Minutes, Physical Therapy 40 (TE-F x 3) Patient Effort excellent Symptoms Noted During/After Treatment fatigue General Information Patient/Family/Caregiver Comments/Observations responding yes/no to many questions, drowsy at times Treatment Number PT 10 Pain Scale/Rating Pain Assessment Scale Word (verbal rating pain scale) Pain Level (no c/o pain) Bed Mobility Assessment/Treatment Assistive Device (Bed Mobility) bed rails Agksiu-xv-Xnh [place] (Bed Mobility) minimum assist (75% patient effort) Safety Issues (Bed Mobility) decreased use of legs for bridging/pushing Impairments (Bed Mobility) vision impaired Comment (Bed Mobility) HOB slightly elevated, extra time required Transfer Assessment/Treatment Bed-Chair [place] (Transfers) moderate assist (50% patient effort);2 person assist required Chair-Bed [place] (Transfers) moderate assist (50% patient effort);2 person assist required Nre-Jdzot-Ebt Assistive Device (Transfers) (B hand hold) [place] (Sit-Stand Transfers) minimum assist (75% patient effort);2 person assist required [place] (Stand-Sit Transfers) minimum assist (75% patient effort);2 person assist required Dpn-Ltkjy-Crw Assistive Device (Transfers) rolling walker [place] (Toilet Transfers) moderate assist (50% patient effort);2 person assist required Assistive Device (Toilet Transfers) bedside commode;rolling walker Maintain Weight Bearing Status (Transfers) able to maintain weight bearing status Safety Issues (Transfers) balance decreased during turns;sequencing ability decreased;weight-shifting ability decreased;loses balance backward Impairments (Transfers) balance impaired;strength decreased;vision impaired Comment (Transfers) transferred from various surfaces, difficulty turning, poor eccentric control when sitting Gait Assessment/Treatment [place] (Gait) minimum assist (75% patient effort);2 person assist required Assistive Device (Gait) rolling walker Distance in Feet (Gait) 15 ft x 3, 25 ft Gait Pattern Analysis swing-to gait Deviations (Gait) carmen decreased;step length decreased;weight-shifting ability decreased Maintain Weight Bearing Status (Gait) able to maintain weight bearing status Safety Issues (Gait) balance decreased during turns;sequencing ability decreased;step length decreased;weight-shifting ability decreased Impairments (Gait) balance impaired;strength decreased;vision impaired Comment (Gait) w/c follow, cues for walker management and steering Therapeutic Exercise Comment (Therapeutic Exercise) toss/catch with ball, unsupported sitting Plan of Care Review Plan Of Care Reviewed With patient Bed Mobility Goal Bed Mobility Goal, Date Established 09/09/17 Bed Mobility Goal, Time to Achieve by discharge Bed Mobility Goal, Activity Type all bed mobility activities Bed Mobility Goal, [place] Level moderate assist (50% patient effort) Bed Mobility Goal, Outcome Achieved goal ongoing Gait Training Goal Gait Training Goal, Date Established 09/09/17 Gait Training Goal, Time to Achieve by discharge Gait Training Goal, [place] Level minimum assist (75% patient effort) Gait Training Goal, Assist Device walker, rolling Gait Training Goal, Distance to Achieve 15 ft Gait Training Goal, Outcome goal ongoing Transfer Training Goal Transfer Training Goal, Date Established 09/09/17 Transfer Training Goal, Time to Achieve by discharge Transfer Training Goal, Activity Type iee-wm-irvdw/utmcj-jb-xdr;vhn-pu-xexqt/uoatu-sf-bwx Transfer Train Goal, [place] Level minimum assist (75% patient effort) Transfer Training Goal, Assist Device walker, rolling Transfer Training Goal, Outcome goal ongoing Physical Therapy Goal PT Goal, Date Established 09/09/17 PT Goal, Time to Achieve by discharge PT Goal, Activity Type Pt will propel self in w/c household distances PT Goal, [place] Level set up required;supervision required PT Goal, Outcome goal ongoing Clinical Impression Therapy Frequency 2-4 times/wk Anticipated Discharge Disposition half-way facility (could go to handicap accesible nursing home with assistance) * Plan of Care - Pamela Mei RN - 11/07/2017 3:34 AM EDT OUTCOME EVALUATION NOTE: ? OUTCOME SUMMARY: ? Patient responding with one word answers intermittently this shift and occasionally follows commands per baseline. Screaming throughout shift with longer periods of sleep/restfulness than last night.Incisions ZULMA and well- approximated/healed. Sitter at bedside throughout shift. Patient incontinentof urine/stool and frequent edna care/bed changes done. PRN Haldol and Ativan administered per order (see MAR for details) for agitation with minimal effect. Fluid restriction maintained. ? PLAN MOVING FORWARD: ?? Mobilize, pain control, skin surveillance, fluid restriction ? INDIVIDUALIZED FALL PREVENTION INTERVENTIONS: ? Patient-specific fall risk factors per assessment: [current deficits]:?Narcotics, tubing, generalized weakness, surgery ? Assistance [level of assistance required for transfers and ambulation]:?2 Assist Stand-Pivot w/ FWW ? Supervision [direct monitoring required during toileting and ADLs]:?Hands on w/ ADL's ? Surveillance [continuous indirect monitoring]:?Purposeful Rounding, Bed Alarm and Sitter ? Patient-specific fall prevention interventions for sensory deficits provided, if applicable:??N/A ? CPG GOAL OUTCOME EVALUATION:?Progress ? Problem: Patient Care Overview Goal: Plan of Care Review ? 10/03/17 0510 10/03/17 0900 Coping/Psychosocial Plan Of Care Reviewed With -- patient;caregiver Plan of Care Review Progress no change -- ? Goal: Fall Prevention-Safe Patient Handling ? 10/03/17 0900 10/03/17 2148 Restraint Interventions Safety Promotion/Fall Prevention activity supervised;fall prevention program maintained;nonskid shoes/slippers when out of bed -- Activity Activity Type -- activity adjusted per tolerance;stand at bedside Activity Assistance Provided -- assistance, 1 person Assistive Device Utilized -- four-wheel walker Positioning Body Position -- independent Daily Care Interventions Self-Care Promotion independence encouraged;BADL personal objects within reach;BADL personal routines maintained -- [place] Fall Risk History of Falling -- 25 Secondary Diagnosis -- 15 Ambulatory Aids -- 15 Intravenous Therapy/Heparin/Saline Lock -- 20 Gait/Transferring -- 20 Mental Status -- 0 Score -- 95 OTHER [place] Fall Risk -- High ? Goal: Infection Control ? 10/03/17 09 Safety Interventions Isolation Precautions standard precautions maintained Infection Prevention environmental surveillance performed;rest/sleep promoted;single patient room provided Coping Strategies Supportive Measures positive reinforcement provided;relaxation techniques promoted;verbalization offeelings encouraged ? Goal: Discharge Needs Assessment ? 09/08/17 0403 09/18/17 1250 09/29/17 1939 Discharge Needs Assessment Concerns To Be Addressed -- -- no discharge needs identified Readmission Within The Last 30 Days -- -- no previous admission in last 30 days Equipment Needed After Discharge -- other (see comments) (TBD) -- Discharge Facility/Level Of Care Needs -- -- -- Current Discharge Risk -- cognitively impaired;physical impairment -- Discharge Disposition -- still a patient -- Current Health Outpatient/Agency/Support Group Needs -- nursing home (specify) -- Anticipated Changes Related to Illness none -- -- Living Environment Transportation Available -- car (caregiver from nursing home) -- Activity/Self Care Review of Systems Equipment Currently Used at Home -- none -- ? 10/03/17 1654 ?? Discharge Needs Assessment ?? Concerns To Be Addressed -- ?? Readmission Within The Last 30 Days -- ?? Equipment Needed After Discharge -- ?? Discharge Facility/Level Of Care Needs adult foster care/nursing home ?? Current Discharge Risk -- ?? Discharge Disposition -- ?? Current Health ?? Outpatient/Agency/Support Group Needs -- ?? Anticipated Changes Related to Illness -- ?? Living Environment ?? Transportation Available -- ?? Activity/Self Care Review of Systems ?? Equipment Currently Used at Home -- ? Problem: Skin Integrity Impairment, Risk/Actual (Adult) Goal: Skin Integrity/Wound Healing Patient will demonstrate the desired outcomes by discharge/transition of care. ? 10/03/17 0510 Skin Integrity Impairment, Risk/Actual (Adult) Skin Integrity/Wound Healing making progress toward outcome ? * Plan of Care - Ximena Lou RN - 11/06/2017 3:57 PM EDT Problem: Patient Care Overview Goal: Plan of Care Review Outcome: Ongoing (Interventions Implemented as Appropriate) 11/05/17 1820 11/06/17 0834 Coping/Psychosocial Plan Of Care Reviewed With -- patient;caregiver Plan of Care Review Progress no change -- OUTCOME EVALUATION NOTE: OUTCOME SUMMARY: Patient getting some sleep between care at times, however still yelling out at times as well. Patient denying pain when asked, scheduled meds continued. Up several times today to bedside commode with2 assist. Fluid restriction continued. Sitter remains at bedside. Will continue to monitor. PLAN MOVING FORWARD: Pain control, increase mobility, safety INDIVIDUALIZED FALL PREVENTION INTERVENTIONS: Patient-specific fall risk factors per assessment: [current deficits]: Intermittent pain, weakness,cognitive impairment Assistance [level of assistance required for transfers and ambulation]: 2 assist with stand pivot to commode Supervision [direct monitoring required during toileting and ADLs]: Hands on with ADLs Surveillance [continuous indirect monitoring]: Purposeful rounding, sitting at bedside Patient-specific fall prevention interventions for sensory deficits provided, if applicable: sitterat bedside CPG GOAL OUTCOME EVALUATION: * Plan of Care - Pamela Mei RN - 11/06/2017 3:15 AM EDT OUTCOME EVALUATION NOTE: ?? OUTCOME SUMMARY: ?? Patient responding with one word answers intermittently this shift and occasionally follows commands. Screaming throughout shift with very brief moments of restfulness. PRN dilaudid administered per order using FACES scale. Incision SUIT MAKER and well-approximated/healed. Sitter at bedside throughout shift. Patient incontinent of urine and frequent edna care/bed changes done. PRN Haldol and Ativan administered per order (see MAR for details) for agitation with no effect. Fluid restriction maintained. ?? PLAN MOVING FORWARD: ?? PT/OT, mobilize, pain control, skin surveillance ?? INDIVIDUALIZED FALL PREVENTION INTERVENTIONS: ?? Patient-specific fall risk factors per assessment: [current deficits]: Narcotics, tubing, generalized weakness, surgery ?? Assistance [level of assistance required for transfers and ambulation]: 2 Assist Stand-Pivot w/ FWW ?? Supervision [direct monitoring required during toileting and ADLs]: Hands on w/ ADL's ?? Surveillance [continuous indirect monitoring]: Purposeful Rounding, Bed Alarm and Sitter ?? Patient-specific fall prevention interventions for sensory deficits provided, if applicable: N/A ?? CPG GOAL OUTCOME EVALUATION: Progress ?? Problem: Patient Care Overview Goal: Plan of Care Review ?? 10/03/17 0510 10/03/17 0900 Coping/Psychosocial Plan Of Care Reviewed With -- patient;caregiver Plan of Care Review Progress no change -- ? Goal: Fall Prevention-Safe Patient Handling ?? 10/03/17 0900 10/03/17 [id number] Restraint Interventions Safety Promotion/Fall Prevention activity supervised;fall prevention program maintained;nonskid shoes/slippers when out of bed -- Activity Activity Type -- activity adjusted per tolerance;stand at bedside Activity Assistance Provided -- assistance, 1 person Assistive Device Utilized -- four-wheel walker Positioning Body Position -- independent Daily Care Interventions Self-Care Promotion independence encouraged;BADL personal objects within reach;BADL personal routines maintained -- Angelic Fall Risk History of Falling -- 25 Secondary Diagnosis -- 15 Ambulatory Aids -- 15 Intravenous Therapy/Heparin/Saline Lock -- 20 Gait/Transferring -- 20 Mental Status -- 0 Score -- 95 OTHER [place] Fall Risk -- High ?? Goal: Infection Control ?? 10/03/17 0900 Safety Interventions Isolation Precautions standard precautions maintained Infection Prevention environmental surveillance performed;rest/sleep promoted;single patient room provided Coping Strategies Supportive Measures positive reinforcement provided;relaxation techniques promoted;verbalization offeelings encouraged ?? Goal: Discharge Needs Assessment ?? 09/08/17 0403 09/18/17 1250 09/29/17 1939 Discharge Needs Assessment Concerns To Be Addressed -- -- no discharge needs identified Readmission Within The Last 30 Days -- -- no previous admission in last 30 days Equipment Needed After Discharge -- other (see comments) (TBD) -- Discharge Facility/Level Of Care Needs -- -- -- Current Discharge Risk -- cognitively impaired;physical impairment -- Discharge Disposition -- still a patient -- Current Health Outpatient/Agency/Support Group Needs -- nursing home (specify) -- Anticipated Changes Related to Illness none -- -- Living Environment Transportation Available -- car (caregiver from nursing home) -- Activity/Self Care Review of Systems Equipment Currently Used at Home -- none -- ?? 10/03/17 1654 Discharge Needs Assessment Concerns To Be Addressed -- Readmission Within The Last 30 Days -- Equipment Needed After Discharge -- Discharge Facility/Level Of Care Needs adult foster care/nursing home Current Discharge Risk -- Discharge Disposition -- Current Health Outpatient/Agency/Support Group Needs -- Anticipated Changes Related to Illness -- Living Environment Transportation Available -- Activity/Self Care Review of Systems Equipment Currently Used at Home -- ? Problem: Skin Integrity Impairment, Risk/Actual (Adult) Goal: Skin Integrity/Wound Healing Patient will demonstrate the desired outcomes by discharge/transition of care. ?? 10/03/17 0510 Skin Integrity Impairment, Risk/Actual (Adult) Skin Integrity/Wound Healing making progress toward outcome ? * Plan of Care - Pamela Mei RN - 11/06/2017 3:14 AM EDT Problem: Patient Care Overview Goal: Plan of Care Review 11/05/17 1820 11/05/172027 Coping/Psychosocial Plan Of Care Reviewed With -- patient Plan of Care Review Progress no change -- OUTCOME EVALUATION NOTE: OUTCOME SUMMARY: Patient . Patient's pain is well-controlled. Dressing to is CDI. Skin is intact. Patient's call morris in reach and patient calling appropriately. No chest pain or shortness of breath reported. VSS. PLAN MOVING FORWARD: PT/OT, mobilize, pain control, skin surveillance INDIVIDUALIZED FALL PREVENTION INTERVENTIONS: Patient-specific fall risk factors per assessment: [current deficits]: Narcotics, tubing, generalized weakness, surgery Assistance [level of assistance required for transfers and ambulation]: assist w/ FWW Supervision [direct monitoring required during toileting and ADLs]: w/ ADL's Surveillance [continuous indirect monitoring]: Purposeful Rounding Patient-specific fall prevention interventions for sensory deficits provided, if applicable: N/A CPG GOAL OUTCOME EVALUATION: Progress Goal: Fall Prevention-Safe Patient Handling 11/05/17 0930 11/05/172027 Restraint Interventions Safety Promotion/Fall Prevention -- activity supervised;fall prevention program maintained;nonskid shoes/slippers when out of bed;safety round/check completed Activity Activity Type -- activity adjusted per tolerance Activity Assistance Provided -- assistance, 2 people Assistive Device Utilized -- front-wheel walker Positioning Body Position -- independent Daily Care Interventions Self-Care Promotion independence encouraged;BADL personal objects within reach;BADL personal routines maintained -- [place] Fall Risk History of Falling -- 25 Secondary Diagnosis -- 15 Ambulatory Aids -- 15 Intravenous Therapy/Heparin/Saline Lock -- 0 Gait/Transferring -- 10 Mental Status -- 15 Score -- 80 OTHER [place] Fall Risk -- High Goal: Infection Control 11/05/172027 Coping Strategies Supportive Measures positive reinforcement provided Safety Interventions Isolation Precautions standard precautions maintained Infection Prevention personal protective equipment utilized Goal: Discharge Needs Assessment 11/05/17 0354 11/05/171818 Discharge Needs Assessment Concerns To Be Addressed -- no discharge needs identified Readmission Within The Last 30 Days -- no previous admission in last 30 days Equipment Needed After Discharge (no specialty bed) -- Discharge Facility/Level Of Care Needs -- adult foster care/nursing home Current Discharge Risk -- cognitively impaired;physical impairment Discharge Disposition -- still a patient Current Health Outpatient/Agency/Support Group Needs -- nursing home (specify) Anticipated Changes Related to Illness -- none Living Environment Transportation Available -- car Activity/Self Care Review of Systems Equipment Currently Used at Home -- none Problem: Skin Integrity Impairment, Risk/Actual (Adult) Goal: Skin Integrity/Wound Healing Patient will demonstrate the desired outcomes by discharge/transition of care. 11/05/17 1819 Skin Integrity Impairment, Risk/Actual (Adult) Skin Integrity/Wound Healing making progress toward outcome * Plan of Care - Tomás Amaro, RN - 11/05/2017 6:21 PM EDT Problem: Patient Care Overview Goal: Plan of Care Review Outcome: Ongoing (Interventions Implemented as Appropriate) 11/05/171819 Coping/Psychosocial Plan Of Care Reviewed With patient Plan of Care Review Progress no change OUTCOME EVALUATION NOTE: OUTCOME SUMMARY: Pt yelling and agitated throughout shift, PRNs given w/ minimal effect. Patient denies pain throughout shift. Pt spent most of day up in wheelchair. Incontinence care provided PRN. Frequent repositioning encouraged. Caregiver at bedside throughout shift. VSS. Will continue to monitor. PLAN MOVING FORWARD: Pain control, mobilize, d/c planning INDIVIDUALIZED FALL PREVENTION INTERVENTIONS: Patient-specific fall risk factors per assessment: [current deficits]: Hospital environment, pain medications, impaired mobility Assistance [level of assistance required for transfers and ambulation]: 2 assist w/ FWW Supervision [direct monitoring required during toileting and ADLs]: Hands on Surveillance [continuous indirect monitoring]: Hourly rounding, Masimo, NKE at bedside, call morris within reach, rn medicare at bedside Patient-specific fall prevention interventions for sensory deficits provided, if applicable: CPG GOAL OUTCOME EVALUATION: * Plan of Care - Louis Doran PTA - 11/05/2017 10:05 AM EDT Physical Therapy Treatment Treatment Number PT: 9 Pertinent History of Current Problem: Pt is a 27 yo man with a history of resection of pituitary tumor, intraoperative hemorrhage and CVA, cognitive impairment, cortical blindness, partial L sided paralysis, seizure disorder, and panhypopituitarism (with DI, adrenal insufficiency, hypothyroidism, hy pogonadism) here with a left acetabular fracture that occurred in the setting of a possible seizure. Precautions/Restrictions: fall, weight bearing Precautions Comments: TDWB L LE. L sided weaker than R at baseline. Blind Assessment: Pt seen for functional mobility, strength, endurance and pt education. Continues to ambulate well while maintaining TDWB, however unsteady when asked to turn or back up. Drowsy today frompoor sleep last night, likely contributing to pt's increased need for assist during gait today, heavily leaning toward the L at times. Encouraged out of bed to recliner and wheelchair throughout the day to progress mobility, encouraged caregiver assistance during transfers and gait as well. Please see the flow sheet below for patient details and mobility. Pt would benefit from ongoing physical therapy interventions. Staff Mobility Recommendations: Stand pivot with 2 assist Anticipated Discharge Disposition: half-way facility (could go to handicap accesible nursing home with assistance) LOUIS DORAN PTA Pager: [phone] Inpatient Physical Therapy 11/05/17 1005 Rehab Evaluation Document Type therapy note (daily note) Total Evaluation Minutes, Physical Therapy 40 (TE-F x 3) Patient Effort good Symptoms Noted During/After Treatment fatigue (drowsy) General Information Patient/Family/Caregiver Comments/Observations cooperative and redirectable, followed directions well Pertinent History of Current Problem Pt is a 27 yo man with a history of resection of pituitary tumor, intraoperative hemorrhage and CVA, cognitive impairment, cortical blindness, partial L sided paralysis, seizure disorder, and panhypopituitarism (with DI, adrenal insufficiency, hypothyroidism, hyp ogonadism) here with a left acetabular fracture that occurred in the setting of a possible seizure. Precautions/Restrictions fall;weight bearing Precautions Comments TDWB L LE. L sided weaker than R at baseline. Blind Treatment Number PT 9 Pain Scale/Rating Pain Assessment Scale Faces (Roberson-Carter FACES Pain Rating Scale) Pain Level 0 Bed Mobility Assessment/Treatment Assistive Device (Bed Mobility) bed rails [id number] [place] (Bed Mobility) supervision required Comment (Bed Mobility) HOB elevated, steady in sitting Transfer Assessment/Treatment Bed-Chair [place] (Transfers) minimum assist (75% patient effort);moderate assist (50% patienteffort);2 person assist required Chair-Bed [place] (Transfers) minimum assist (75% patient effort);moderate assist (50% patienteffort);2 person assist required Rkh-Xmblt-Ikj Assistive Device (Transfers) rolling walker [place] (Sit-Stand Transfers) minimum assist (75% patient effort);2 person assist required [place] (Stand-Sit Transfers) minimum assist (75% patient effort);2 person assist required Qpo-Gkcff-Qrg Assistive Device (Transfers) rolling walker Maintain Weight Bearing Status (Transfers) able to maintain weight bearing status Safety Issues (Transfers) balance decreased during turns;sequencing ability decreased;step length decreased;weight-shifting ability decreased Impairments (Transfers) balance impaired;strength decreased Comment (Transfers) Step by step cues provided, slightly unsteady and leaning toward the L in standing Gait Assessment/Treatment [place] (Gait) minimum assist (75% patient effort);moderate assist (50% patient effort);2 person assist required Assistive Device (Gait) rolling walker Distance in Feet (Gait) 10 ft x 3, walked backwards 5 ft x 2 Gait Pattern Analysis swing-to gait Deviations (Gait) carmen decreased;step length decreased;weight-shifting ability decreased Maintain Weight Bearing Status (Gait) able to maintain weight bearing status Safety Issues (Gait) balance decreased during turns;sequencing ability decreased;step length decreased;weight-shifting ability decreased Impairments (Gait) balance impaired;strength decreased Comment (Gait) w/c follow provided, unsteady when turning or backing up requiring assist to maintain balance, used // bars to walk backwards Therapeutic Exercise Comment (Therapeutic Exercise) heel slides and long arc quads Plan of Care Review Plan Of Care Reviewed With patient Bed Mobility Goal Bed Mobility Goal, Date Established 09/09/17 Bed Mobility Goal, Time to Achieve by discharge Bed Mobility Goal, Activity Type all bed mobility activities Bed Mobility Goal, [place] Level moderate assist (50% patient effort) Bed Mobility Goal, Outcome Achieved goal ongoing Gait Training Goal Gait Training Goal, Date Established 09/09/17 Gait Training Goal, Time to Achieve by discharge Gait Training Goal, [place] Level minimum assist (75% patient effort) Gait Training Goal, Assist Device walker, rolling Gait Training Goal, Distance to Achieve 15 ft Gait Training Goal, Outcome goal ongoing Transfer Training Goal Transfer Training Goal, Date Established 09/09/17 Transfer Training Goal, Time to Achieve by discharge Transfer Training Goal, Activity Type uqm-go-lkigl/vqqwn-gn-cmb;brd-cq-pchsg/ovvtd-uw-nmw Transfer Train Goal, [place] Level minimum assist (75% patient effort) Transfer Training Goal, Assist Device walker, rolling Transfer Training Goal, Outcome goal ongoing Physical Therapy Goal PT Goal, Date Established 09/09/17 PT Goal, Time to Achieve by discharge PT Goal, Activity Type Pt will propel self in w/c household distances PT Goal, [place] Level set up required;supervision required PT Goal, Outcome goal ongoing * Plan of Care - Kusum Hidalgo RN - 11/05/2017 4:33 AM EDT Problem: Patient Care Overview Goal: Plan of Care Review Outcome: Ongoing (Interventions Implemented as Appropriate) 11/05/17353 Coping/Psychosocial Plan Of Care Reviewed With patient Plan of Care Review Progress no change OUTCOME EVALUATION NOTE: OUTCOME SUMMARY: Pt was restless and yelling out through evening until 0230. Medicated with Haldol and Lorazepam. Ptinconitnent X 3, had small BM. Pt refused to have BP taken X 1.stated he was going to Bite the sitter. Pt takes pills with apple juice. 3200cc fluid restriction maintained. PLAN MOVING FORWARD: -maintain safety plan -Pain Control -Mobilize INDIVIDUALIZED FALL PREVENTION: Assistance: 2 assist with walker Supervision: - Hands-on for all transfers and ambulation - Eyes-on for all transfers and ambulation - Arms-Reach for all transfers and ambulation Surveillance: - Bed Alarm/Chair Alarm - Purposeful Rounding -Team Care - Bedside Nurse Knowledge Exchange -masimo monitoring CPG OUTCOME EVALUATION: Goal: Individualization & Mutuality Outcome: Ongoing (Interventions Implemented as Appropriate) 11/05/17353 Individualization Patient Specific Preferences sitter at bedside, cluster care Patient Specific Goals maintain safety plan, limit interuptions Patient Specific Interventions 3200 cc fluid restriction Goal: Fall Prevention-Safe Patient Handling Outcome: Ongoing (Interventions Implemented as Appropriate) 11/05/17353 Restraint Interventions Safety Promotion/Fall Prevention activity supervised;fall prevention program maintained;nonskid shoes/slippers when out of bed Activity Activity Type activity adjusted per tolerance Activity Assistance Provided assistance, 2 people Assistive Device Utilized front-wheel walker Positioning Body Position independent Daily Care Interventions Self-Care Promotion BADL personal routines maintained [place] Fall Risk History of Falling 25 Secondary Diagnosis 15 Ambulatory Aids 15 Intravenous Therapy/Heparin/Saline Lock 0 Gait/Transferring 10 Mental Status 15 Score 80 OTHER [place] Fall Risk High Goal: Infection Control Outcome: Ongoing (Interventions Implemented as Appropriate) 11/05/17353 Coping Strategies Supportive Measures positive reinforcement provided Safety Interventions Isolation Precautions standard precautions maintained Infection Prevention rest/sleep promoted Goal: Discharge Needs Assessment Outcome: Ongoing (Interventions Implemented as Appropriate) 11/05/17353 Discharge Needs Assessment Concerns To Be Addressed no discharge needs identified Readmission Within The Last 30 Days no previous admission in last 30 days Equipment Needed After Discharge (no specialty bed) Discharge Facility/Level Of Care Needs adult foster care/nursing home Current Discharge Risk cognitively impaired;physical impairment Discharge Disposition still a patient Current Health Anticipated Changes Related to Illness none Activity/Self Care Review of Systems Equipment Currently Used at Home none Problem: Skin Integrity Impairment, Risk/Actual (Adult) Goal: Skin Integrity/Wound Healing Patient will demonstrate the desired outcomes by discharge/transition of care. Outcome: Ongoing (Interventions Implemented as Appropriate) 11/05/17353 Skin Integrity Impairment, Risk/Actual (Adult) Skin Integrity/Wound Healing making progress toward outcome * Plan of Care - Lori Tolliver RN - 11/04/2017 3:12 PM EDT Problem: Patient Care Overview Goal: Plan of Care Review 11/04/17 1448 Coping/Psychosocial Plan Of Care Reviewed With patient Plan of Care Review Progress no change OUTCOME EVALUATION NOTE: OUTCOME SUMMARY: Patient has been hollering out throughout the day. Patient assisted to wheelchair with OT and assisted off the unit with caregiver to get his hair cut. Patient appearing more agitated after returningto unit from hair cut. PRN Haldol given after patient was safely transferred to be with 3 assist. Patient continues to remain on fluid restriction. Incontinent multiple times with large amounts of clear yellow urine. Incision remains c/d/i and SUIT MAKER. Will continue to monitor. PLAN MOVING FORWARD: Discharge planning. Patient safety. INDIVIDUALIZED FALL PREVENTION INTERVENTIONS: Patient-specific fall risk factors per assessment: [current deficits]: Cognitive impairment Assistance [level of assistance required for transfers and ambulation]: 2 assist stand pivot Supervision [direct monitoring required during toileting and ADLs]: Hands on Surveillance [continuous indirect monitoring]: Sitter at bedside CPG GOAL OUTCOME EVALUATION: Goal: Individualization & Mutuality 11/04/17 1448 Individualization Patient Specific Interventions fluid restrictions/ yes or no questions Goal: Fall Prevention-Safe Patient Handling 11/04/17 1200 Restraint Interventions Safety Promotion/Fall Prevention activity supervised;nonskid shoes/slippers when out of bed;fall prevention program maintained;safety round/check completed Activity Activity Type activity adjusted per tolerance Activity Assistance Provided assistance, 1 person Assistive Device Utilized front-wheel walker Positioning Body Position independent Daily Care Interventions Self-Care Promotion BADL personal routines maintained [place] Fall Risk History of Falling 25 Secondary Diagnosis 15 Ambulatory Aids 15 Intravenous Therapy/Heparin/Saline Lock 0 Gait/Transferring 10 Mental Status 15 Score 80 OTHER [place] Fall Risk High Goal: Infection Control 11/04/17 1200 Coping Strategies Supportive Measures active listening utilized;relaxation techniques promoted;problem solving facilitated Safety Interventions Isolation Precautions standard precautions maintained Infection Prevention rest/sleep promoted;personal protective equipment utilized;environmental surveillance performed;single patient room provided Goal: Discharge Needs Assessment 11/04/17 1448 Discharge Needs Assessment Concerns To Be Addressed no discharge needs identified Readmission Within The Last 30 Days no previous admission in last 30 days Goal: Interdisciplinary Rounds/Family Conf 11/04/17 1448 Interdisciplinary Rounds/Family Conf Participants nursing;patient * Plan of Care - Skyla Ayala, OT - 11/04/2017 12:30 PM EDT Occupational Therapy Treatment Note Pertinent History of Current Problem: Pt is a 27 yo man with a history of resection of pituitary tumor, intraoperative hemorrhage and CVA, cognitive impairment, cortical blindness, partial L sided paralysis, seizure disorder, and panhypopituitarism (with DI, adrenal insufficiency, hypothyroidism, hy pogonadism) here with a left acetabular fracture that occurred in the setting of a possible seizure. Precautions/Restrictions: fall, weight bearing Precautions Comments: TDWB L LE. L sided weaker than R at baseline. Blind. Developmental delay. Assessment: Pt seen for skilled OT interventions, and re-evaluation. Pt remains TDWB'ing on L LE and continues to require assist with transfers 2' high falls risk. Progress has been slow; but Pt not screaming out- but still vocalizes often (as is his baseline). Pt in good spirits today, and was able to help participate in dressing himself with set-up, prompts, and minimal assistance at bed level.Pt was able to transfer to the w/c after dressing task, with min-CG A of 2, and head off floor to get his hair cut with caregiver. Caregiver was present for session and participated in session as well. Feel therapy efforts need to continue to use caregivers, and work towards goal of transferring with one staff consistently so it can be done by his own staff. Pt will benefit from ongoing therapeutic interventions to achieve pt's and therapy goals. Please refer to associated flowsheet data listedbelow for treatment session details. Staff Recommendations: Encourage OOB activity and participation in all self care tasks with assistance of 2. Anticipated Discharge Disposition: half-way facility, other (see comments) (vs. 27/01 assistance, PT/OT) Pager: [phone] SKYLA AYALA OT 11/04/2017 Occupational Therapy Rehabilitation Department 11/04/17 1230 Rehab Evaluation Document Type therapy note (daily note) Total Evaluation Minutes, Occupational Therapy 25 (self-mgmt/re-address goals) Patient Effort excellent Symptoms Noted During/After Treatment (discomfort with transitions, moans on/off) General Information Patient/Family/Caregiver Comments/Observations Pt moaning/grunting at times, but not high pitch yelling as he was on initial eval. General Observations of Patient Pt lying in bed, foot board removed as per nsg./caregiver he has been kicking it. Pt willing and cooperative to work today. Pt with sheet over him but nothing else. Pertinent History of Current Problem Pt is a 27 yo man with a history of resection of pituitary tumor, intraoperative hemorrhage and CVA, cognitive impairment, cortical blindness, partial L sided paralysis, seizure disorder, and panhypopituitarism (with DI, adrenal insufficiency, hypothyroidism, hyp ogonadism) here with a left acetabular fracture that occurred in the setting of a possible seizure. Precautions/Restrictions fall;weight bearing Precautions Comments TDWB L LE. L sided weaker than R at baseline. Blind. Developmental delay. Limitations/Impairments safety/cognitive Treatment Number OT 12 Cognitive Assessment Interventions Behavior/Mood Observations (Cognitive) alert;cooperative (vocal, but not yelling) Attention (Cognitive) distractible;difficulty attending to task/directions;needs cues to redirect Follows Commands/Answers Questions (Cognitive) able to follow single-step instructions;needs cueing;needs increased time;needs repetition;100% of the time Personal Safety (Cognitive) impulsive;decreased insight to deficits;decreased awareness, need for safety;decreased awareness, need for assist Pain Scale/Rating Pain Assessment Scale Faces (Roberson-Carter FACES Pain Rating Scale) Pain Level 2 Bed Mobility Assessment/Treatment Assistive Device (Bed Mobility) bed rails (HOB slightly raised ) Ntowwm-kw-Iem [place] (Bed Mobility) minimum assist (75% patient effort);verbal cues required Impairments (Bed Mobility) pain;flexibility decreased (increased time, slow transition ) Comment (Bed Mobility) able to sit eob with supervision Roll Left [place] (Bed Mobility) minimum assist (75% patient effort);verbal cues required (tactile cues ) Roll Right [place] (Bed Mobility) minimum assist (75% patient effort);verbal cues required (tactile cues) Transfer Assessment/Treatment [place] (Sit-Stand Transfers) minimum assist (75% patient effort);verbal cues required;contactguard assist (1-2, tactile cues) [place] (Stand-Sit Transfers) moderate assist (50% patient effort);verbal cues required (as tries to sit prematurely before squared up) Impairments (Transfers) balance impaired;strength decreased;other (see comments) (restricted weight bearing, poor safety awareness) Comment (Transfers) pivoted from bed to w/c. Got up to w/c to head off floor with caregiver to get hair cut. Bed-Chair [place] (Transfers) minimum assist (75% patient effort);verbal cues required;contactguard assist (1-2) Wzt-Nwtcm-Aam Assistive Device (Transfers) rolling walker Upper Body Dressing Assessment/Training Position (UB Dressing) supported sitting (in w/c) [place] Level (UB Dressing) set up required;verbal cues required;minimum assist (75% patient effort) Impairments (UB Dressing) balance impaired;other (see comments);vision impaired (orientating item, ) Comment (UB Dressing) help to orient shirt for Pt and Pt was able to don arms/head through and pulldown with prompts seated in w/c. Lower Body Dressing Assessment/Training Position (LB Dressing) supine [place] Level (LB Dressing) set up required;verbal cues required;minimum assist (75% patient effort) Impairments (LB Dressing) balance impaired;vision impaired Comment (LB Dressing) Pt was able to help lift legs to don them through pant legs, and then roll side to side and help pull them up. Donned them backward, so he would have a harder time getting them off at the request of caregiver. Toileting Assessment/Training Position (Toileting) supine [place] Level (Toileting) minimum assist (75% patient effort);set up required;verbal cues required Impairments (Toileting) balance impaired;vision impaired (issues with incontinence) Comment (Toileting) Donned depends lying in bed, and rolling side to side. Donned them too high andPt was able to bridge to help lower them. Plan of Care Review Plan Of Care Reviewed With patient;caregiver Bathing Goal Bathing Goal, Date Established 11/04/17 Bathing Goal, Time to Achieve 2 wks Bathing Goal, Activity Type Pt will be able to sustain sitting eob with supervision and complete UBbathing with min A /p set-up, and with verbal cues. Bathing Goal, Outcome goal ongoing (progress slow 2' variable behavior ) Eating Self-Feeding Goal Eat Self Feeding Goal, Date Established 11/04/17 Eat Self Feeding Goal, Time to Achieve 2 wks Eat Self Feeding Goal, Activity Type Pt will be able to transfer to the chair or w/c with min A of 1 consistently and use of a walker- to promote increased activity and improved positioning for task. Eat Self Feeding Goal, Outcome goal revised (as met transfer with min A of 2. ) Toileting Goal Toileting Goal, Date Established 11/04/17 Toileting Goal, Time to Achieve 2 wks Toileting Goal, Activity Type Pt will be able to stand and pivot to the commode with min A, appropriate AD, and comply to weight bearing restrictions. Toileting Goal, Additional Goal Pt with have minimal episode of incontinence during the day with timed toileting program of every 2 hours. Toileting Goal, Outcome goal revised LB Dressing Goal LB Dressing Goal, Date Established 11/04/17 LB Dressing Goal, Time to Achieve 2 wks LB Dressing Goal, Activity Type Pt will maintain weight bearing restrictions and be able to sustainstanding with 1 assist and walker as caregiver hikes pants to/from waist. LB Dressing Goal, Outcome goal ongoing Occupational Therapy Goal OT Goal, Date Established 09/09/17 OT Goal, Time to Achieve 2 wks OT Goal, Activity Type Pt will tolerate sitting upright in chair for > 30 min for ther. activity/play task. Clinical Impression Criteria for Skilled Therapeutic Interventions Met treatment indicated Rehab Potential fair, will monitor progress closely Therapy Frequency 1-3 times/wk Anticipated Equipment Needs at Discharge (FWW, w/c, commode, shower seat ) Anticipated Discharge Disposition half-way facility;other (see comments) (vs. 27/01 assistance, PT/OT) * Plan of Care - Lisa Person RN - 11/04/2017 1:53 AM EDT Problem: Patient Care Overview Goal: Plan of Care Review Outcome: Ongoing (Interventions Implemented as Appropriate) 11/03/17 1415 11/03/172013 Coping/Psychosocial Plan Of Care Reviewed With -- patient Plan of Care Review Progress no change -- OUTCOME EVALUATION NOTE: ? OUTCOME SUMMARY: ? Pt resting between care overnight. ??Intermittently yelling out. ??Sitter remains at bedside. ??Incontinent of urine at times overnight, x1 BM.??Will continue to monitor. ? PLAN MOVING FORWARD: ? Pain control, mobility, d/c planning ? INDIVIDUALIZED FALL PREVENTION INTERVENTIONS: ? Patient-specific fall risk factors per assessment: [current deficits]:?Blind, cognitive impairment, TDWB LLE, pain , narcotics ? Assistance [level of assistance required for transfers and ambulation]:?2 assist ? Supervision [direct monitoring required during toileting and ADLs]:?Hands on ? Surveillance [continuous indirect monitoring]:?Sitter, purposeful rounding, bed alarm ? Patient-specific fall prevention interventions for sensory deficits provided, if applicable:?[X]N/A ? CPG GOAL OUTCOME EVALUATION:? * Plan of Care - Jeannette Don RN - 11/03/2017 2:19 PM EDT Problem: Patient Care Overview Goal: Plan of Care Review Outcome: Ongoing (Interventions Implemented as Appropriate) 11/03/17 1415 Coping/Psychosocial Plan Of Care Reviewed With patient Plan of Care Review Progress no change OUTCOME EVALUATION NOTE: OUTCOME SUMMARY: Pt intermittently yelling out. PRN pain medications given. Pt assisted to bedside commode during shift. Cardroom Manager at bedside. Will continue to monitor. PLAN MOVING FORWARD: Pain control PT/OT Ongoing D/C planning INDIVIDUALIZED FALL PREVENTION INTERVENTIONS: Patient-specific fall risk factors per assessment: [current deficits]: cognitive impairment, blind,impaired mobility Assistance [level of assistance required for transfers and ambulation]: 1-2 assist Supervision [direct monitoring required during toileting and ADLs]: Hands on Surveillance [continuous indirect monitoring]: Hourly rounding, NKE CPG GOAL OUTCOME EVALUATION: * Plan of Care - Lisa Person RN - 11/03/2017 1:09 AM EDT Problem: Patient Care Overview Goal: Plan of Care Review Outcome: Ongoing (Interventions Implemented as Appropriate) 11/02/17 1522 11/02/17 2104 Coping/Psychosocial Plan Of Care Reviewed With -- patient Plan of Care Review Progress no change -- OUTCOME EVALUATION NOTE: ?? OUTCOME SUMMARY: ?? Pt resting between care overnight. Intermittently yelling out. Sitter remains at bedside. Incontinent of urine at times overnight, was able to use urinal x1 with assistance. Will continue to monitor. ?? PLAN MOVING FORWARD: ?? Pain control, mobility, d/c planning ?? INDIVIDUALIZED FALL PREVENTION INTERVENTIONS: ?? Patient-specific fall risk factors per assessment: [current deficits]: Blind, cognitive impairment,TDWB LLE, pain , narcotics ?? Assistance [level of assistance required for transfers and ambulation]: 2 assist ?? Supervision [direct monitoring required during toileting and ADLs]: Hands on ?? Surveillance [continuous indirect monitoring]: Sitter, purposeful rounding, bed alarm ?? Patient-specific fall prevention interventions for sensory deficits provided, if applicable: [X] N/A ? CPG GOAL OUTCOME EVALUATION: ?? * Plan of Care - Jeannette Don RN - 11/02/2017 3:27 PM EDT Problem: Patient Care Overview Goal: Plan of Care Review Outcome: Ongoing (Interventions Implemented as Appropriate) 11/02/17 1522 Coping/Psychosocial Plan Of Care Reviewed With patient Plan of Care Review Progress no change OUTCOME EVALUATION NOTE: OUTCOME SUMMARY: Pt often yelling out during shift. PRN pain medications given. Pt intermittently assisted to bedside commode during shift. Cardroom Manager at bedside. Will continue to monitor. PLAN MOVING FORWARD: Pain/spasm control Ongoing D/C planning INDIVIDUALIZED FALL PREVENTION INTERVENTIONS: Patient-specific fall risk factors per assessment: [current deficits]: Cognitive impairment, impaired mobility Assistance [level of assistance required for transfers and ambulation]: 1-2 assist Supervision [direct monitoring required during toileting and ADLs]: Hands on Surveillance [continuous indirect monitoring]: Cardroom Manager at bedside, hourly rounding, NKE CPG GOAL OUTCOME EVALUATION: * Plan of Care - Lisa Person RN - 11/02/2017 4:08 AM EDT Problem: Patient Care Overview Goal: Plan of Care Review Outcome: Ongoing (Interventions Implemented as Appropriate) 10/31/17 0251 11/01/171999 Coping/Psychosocial Plan Of Care Reviewed With -- patient Plan of Care Review Progress no change -- OUTCOME EVALUATION NOTE: OUTCOME SUMMARY: Pt resting between care overnight. Intermittently yelling out. PRN dilaudid given with + effect. Sitter remains at bedside. Incontinent of urine overnight. Will continue to monitor. PLAN MOVING FORWARD: Pain control, mobility, d/c planning INDIVIDUALIZED FALL PREVENTION INTERVENTIONS: Patient-specific fall risk factors per assessment: [current deficits]: Blind, cognitive impairment,TDWB LLE, pain , narcotics Assistance [level of assistance required for transfers and ambulation]: 2 assist Supervision [direct monitoring required during toileting and ADLs]: Hands on Surveillance [continuous indirect monitoring]: Sitter, purposeful rounding, bed alarm Patient-specific fall prevention interventions for sensory deficits provided, if applicable: [X] N/A CPG GOAL OUTCOME EVALUATION: * Plan of Care - Radha Benitez RN - 11/01/2017 5:28 PM EDT Problem: Patient Care Overview Goal: Plan of Care Review OUTCOME EVALUATION NOTE: OUTCOME SUMMARY: Pt. Rested between care this shift. Pt. Pushed himself around the unit in the wheelchair with supervision. Pt. Was able to go outside with supervision from staff and it security analyst. Cardroom Manager at bedside throughout shift. Pt. Assisted to bedside commode intermittently throughout shift to promote continence. Pt. Intermittently agitated (yelling and screaming) this shift. No signs or symptoms of acute distress at this time. Will continue to monitor. PLAN MOVING FORWARD: Pain/muscle spasm control, bone healing, d/c planning INDIVIDUALIZED FALL PREVENTION INTERVENTIONS: Patient-specific fall risk factors per assessment: [current deficits]: TDWB LLE, cognitive impairment, blind Assistance [level of assistance required for transfers and ambulation]: 2 people, wheelchair Supervision [direct monitoring required during toileting and ADLs]: Hands on, eyes on Surveillance [continuous indirect monitoring]: Caregiver at bedside Patient-specific fall prevention interventions for sensory deficits provided, if applicable: [X] N/A CPG GOAL OUTCOME EVALUATION: * Plan of Care - Diana Greco RN - 11/01/2017 1:44 AM EDT Problem: Patient Care Overview Goal: Plan of Care Review Outcome: Ongoing (Interventions Implemented as Appropriate) 10/31/17 0251 10/31/176 Coping/Psychosocial Plan Of Care Reviewed With -- patient Plan of Care Review Progress no change -- OUTCOME EVALUATION NOTE: OUTCOME SUMMARY: Pt resting between care. Sitter @ bedside. Pt having muscles spasms this shift, massaging leg helpsw/spasms. Pain controlled w/scheduled and prn meds. Simethicone given x1 this shift, ativan given x1 for agitation. Incontinence care provided prn.Will continue to monitor. PLAN MOVING FORWARD: -Pain Control -Mobilize -d/c planning INDIVIDUALIZED FALL PREVENTION: Pt is at risk to fall due to weakness, touch down weight bearing LLE, medication regimen Assistance: -2-assist with walker Supervision: -Hands-on/eyes on for all transfers and ambulation Surveillance: -Purposeful Rounding -Team Care -Nurse Knowledge Exchange CPG OUTCOME EVALUATION: * Plan of Care - Radha Benitez RN - 10/31/2017 3:29 PM EDT Problem: Patient Care Overview Goal: Plan of Care Review OUTCOME EVALUATION NOTE: OUTCOME SUMMARY: Pt. Rested between care this shift with caregiver at the bedside. Pt. Worked with therapy today. Pt. Was up in the wheelchair for four hours. Pt. Denies pain but demonstrates pain by clutching R toes. Pt. Medicated appropriately. Pt. Appears to have muscle spasms (based on clutching, crying/moaningand grimacing) in LLE that are relieved with gentle massage. No signs or symptoms of acute distressat this time. Will continue to monitor. PLAN MOVING FORWARD: Pain control, promote bone healing, monitor sodium level, d/c planning INDIVIDUALIZED FALL PREVENTION INTERVENTIONS: Patient-specific fall risk factors per assessment: [current deficits]: Cognitive impairment, TDWB LLE Assistance [level of assistance required for transfers and ambulation]: 2 people Supervision [direct monitoring required during toileting and ADLs]: Hands on, eyes on Surveillance [continuous indirect monitoring]: Caregiver at bedside Patient-specific fall prevention interventions for sensory deficits provided, if applicable: [X] N/A CPG GOAL OUTCOME EVALUATION: * Plan of Care - Louis Doran PTA - 10/31/2017 12:30 PM EDT Physical Therapy Treatment Treatment Number PT: 8 Pertinent History of Current Problem: Pt is a 27 yo man with a history of resection of pituitary tumor, intraoperative hemorrhage and CVA, cognitive impairment, cortical blindness, partial L sided paralysis, seizure disorder, and panhypopituitarism (with DI, adrenal insufficiency, hypothyroidism, hy pogonadism) here with a left acetabular fracture that occurred in the setting of a possible seizure. Precautions/Restrictions: fall Precautions Comments: L side weaker than R at baseline. Blind. Assessment: Pt seen for functional mobility, strength, endurance and pt education. Ambulated well in the // bars with cues and w/c follow, then ambulated with FWW, pt required Min A x 2, assist to steer walker, chair follow and cues to maintain weight bearing restriction. Progressing distance, pt does well when asked to count his steps, maintains TDWB while ambulating. Exceptionally quiet today and followed directions well, encourage up to wheelchair daily to progress mobility. Please see the flow sheet below for patient details and mobility. Pt would benefit from ongoing physical therapy interventions. Staff Mobility Recommendations: Stand pivot transfer with 1-2 assist, FWW Anticipated Discharge Disposition: half-way facility (could go to handicap accesible nursing home with assistance) LOUIS DORAN PTA Pager: [phone] Inpatient Physical Therapy 10/31/17 1230 Rehab Evaluation Document Type therapy note (daily note) Total Evaluation Minutes, Physical Therapy 30 (TE-F x 2) Patient Effort excellent Symptoms Noted During/After Treatment none General Information Patient/Family/Caregiver Comments/Observations Minimal yelling today, followed direction well Precautions/Restrictions fall Treatment Number PT 8 Pain Scale/Rating Pain Assessment Scale Faces (Roberson-Carter FACES Pain Rating Scale) Pain Level 0 Transfer Assessment/Treatment [place] (Sit-Stand Transfers) minimum assist (75% patient effort) [place] (Stand-Sit Transfers) moderate assist (50% patient effort) [id number]-[id number] Assistive Device (Transfers) rolling walker (// bars) Maintain Weight Bearing Status (Transfers) able to maintain weight bearing status Safety Issues (Transfers) step length decreased;weight-shifting ability decreased Impairments (Transfers) strength decreased Comment (Transfers) Poor eccentric control when sitting Gait Assessment/Treatment [place] (Gait) minimum assist (75% patient effort);2 person assist required Assistive Device (Gait) rolling walker (// bars) Distance in Feet (Gait) 10 ft x 2, 20 ft x 2, 30 ft Gait Pattern Analysis swing-to gait Deviations (Gait) carmen decreased;step length decreased;weight-shifting ability decreased Maintain Weight Bearing Status (Gait) cues to maintain weight bearing status;able to maintain weight bearing status Safety Issues (Gait) step length decreased;weight-shifting ability decreased Impairments (Gait) strength decreased Comment (Gait) pt performs TDWB while ambulating, placed hand under pt's foot to assess weight bearing while ambulating, requires assist for steering walker Wheelchair Training/Management Propulsion Training (Wheelchair) forward propulsion;steering wheelchair Propulsion Training Comment (Wheelchair) cues to follow voice for navigating in w/c Distance Propelled in Feet (Wheelchair) 20 ft Therapeutic Exercise Comment (Therapeutic Exercise) toss and catch with ball Plan of Care Review Plan Of Care Reviewed With patient Bed Mobility Goal Bed Mobility Goal, Date Established 09/09/17 Bed Mobility Goal, Time to Achieve by discharge Bed Mobility Goal, Activity Type all bed mobility activities Bed Mobility Goal, [place] Level moderate assist (50% patient effort) Bed Mobility Goal, Outcome Achieved goal ongoing Gait Training Goal Gait Training Goal, Date Established 09/09/17 Gait Training Goal, Time to Achieve by discharge Gait Training Goal, [place] Level minimum assist (75% patient effort) Gait Training Goal, Assist Device walker, rolling Gait Training Goal, Distance to Achieve 15 ft Gait Training Goal, Outcome goal ongoing Transfer Training Goal Transfer Training Goal, Date Established 09/09/17 Transfer Training Goal, Time to Achieve by discharge Transfer Training Goal, Activity Type rev-[id number]-md-[id number];lir-ua-[id number]/[id number]-[id number] Transfer Train Goal, [place] Level minimum assist (75% patient effort) Transfer Training Goal, Assist Device walker, rolling Transfer Training Goal, Outcome goal ongoing Physical Therapy Goal PT Goal, Date Established 09/09/17 PT Goal, Time to Achieve by discharge PT Goal, Activity Type Pt will propel self in w/c household distances PT Goal, [place] Level set up required;supervision required PT Goal, Outcome goal ongoing Clinical Impression Therapy Frequency 2-4 times/wk * Plan of Care - Crista Diaz RN - 10/31/2017 2:53 AM EDT Problem: Patient Care Overview Goal: Plan of Care Review Outcome: Ongoing (Interventions Implemented as Appropriate) 10/31/17 0251 Coping/Psychosocial Plan Of Care Reviewed With patient Plan of Care Review Progress no change OUTCOME EVALUATION NOTE: OUTCOME SUMMARY: Pt progressing towards d/c goals appropriately at this time. No acute events to reports. Resting between care, woke up around 0300. VSS. Will continue to monitor. PLAN MOVING FORWARD: Mobilization. D/C Planning. INDIVIDUALIZED FALL PREVENTION INTERVENTIONS: Patient-specific fall risk factors per assessment: [current deficits]: Hospital environment. TDWB LLE. Generalized weakness. Pt taking narcotics. Assistance [level of assistance required for transfers and ambulation]: 1-2 Assist, FWW Supervision [direct monitoring required during toileting and ADLs]: 1-2 Assist Surveillance [continuous indirect monitoring]: Sitter at bedside. Bedside nurse knowledge exchange. Patient-specific fall prevention interventions for sensory deficits provided, if applicable: [X] Yes - Bed alarm * Plan of Care - Lenore Yates RN - 10/30/2017 2:27 PM EDT Problem: Patient Care Overview Goal: Plan of Care Review Outcome: Ongoing (Interventions Implemented as Appropriate) 10/29/17 1441 10/30/17 0900 Coping/Psychosocial Plan Of Care Reviewed With -- patient;caregiver Plan of Care Review Progress no change -- OUTCOME EVALUATION NOTE: OUTCOME SUMMARY: Pt sleeping between care this shift. Staff and caregiver continuously tried to wake pt up, pt responding but continues to fall back asleep quickly. Pt denies pain this shift. Incontinence care provided as needed. Caregiver at bedside. Will continue to monitor. ?? PLAN MOVING FORWARD: Mobilize Pain control D/c planning ?? INDIVIDUALIZED FALL PREVENTION INTERVENTIONS: ?? Patient-specific fall risk factors per assessment: [current deficits]: History of falls TTWB LLE Blind ?? Assistance [level of assistance required for transfers and ambulation]: 1-2 assist w/ walker ?? Supervision [direct monitoring required during toileting and ADLs]: Hands on ?? Surveillance [continuous indirect monitoring]: Call morris Caregiver/sitter at bedside Purposeful rounding ?? Patient-specific fall prevention interventions for sensory deficits provided, if applicable: [X] N/A ? CPG GOAL OUTCOME EVALUATION: * Plan of Care - Elsy Mei RN - 10/30/2017 6:05 AM EDT Problem: Patient Care Overview Goal: Plan of Care Review Outcome: Ongoing (Interventions Implemented as Appropriate) 10/29/17 1441 10/29/177 Coping/Psychosocial Plan Of Care Reviewed With -- patient Plan of Care Review Progress no change -- OUTCOME EVALUATION NOTE: OUTCOME SUMMARY: Patient alert, VSs stable. Pt very agitated through the night, incessantly screaming and moaning; slept only from approximately 0277-4222. made aware. Pt denied pain. Exhausted all PRN medicationswith little to no effect; see MAR. Alternative therapies attempted, ie. Massaging his left calf during spasms, music, etc, without effect. Pt incontinent of urine several times; incontinence care provided. Sitter remains at bedside. Will continue to monitor. PLAN MOVING FORWARD: Continue to monitor pain, mobilize, discharge planning. INDIVIDUALIZED FALL PREVENTION INTERVENTIONS: Patient-specific fall risk factors per assessment: [current deficits]: Narcotic medications, surgery, hospital environment, generalized weakness, cognitively impaired, blind. Assistance [level of assistance required for transfers and ambulation]: One-two assist Supervision [direct monitoring required during toileting and ADLs]: Hands on. Surveillance [continuous indirect monitoring]: Masimo, purposeful rounding, NKE, sitter at bedside. Patient-specific fall prevention interventions for sensory deficits provided, if applicable: CPG GOAL OUTCOME EVALUATION: Goal: Individualization & Mutuality Outcome: Ongoing (Interventions Implemented as Appropriate) 10/17/17 1745 10/19/17 0608 10/28/17 0350 Individualization Patient Specific Preferences -- cluster care to promote rest -- Patient Specific Goals -- limit interuptions to pt's rest periods, maintain safety plan -- Patient Specific Interventions -- -- cluster care, sitter at bedside, fluid restriction (3200mL) Mutuality/Individual Preferences What Anxieties, Fears or Concerns Do You Have About Your Health or Care? ISHAAN -- -- What Questions Do You Have About Your Health or Care? ISHAAN -- -- What Information Would Help Us Give You More Personalized Care? ISHAAN -- -- Goal: Fall Prevention-Safe Patient Handling Outcome: Ongoing (Interventions Implemented as Appropriate) 10/29/1790910/29/172126 Restraint Interventions Safety Promotion/Fall Prevention -- activity supervised;fall prevention program maintained;nonskid shoes/slippers when out of bed;safety round/check completed Activity Activity Type -- activity adjusted per tolerance Activity Assistance Provided assistance, 2 people -- Assistive Device Utilized front-wheel walker -- Positioning Body Position -- independent Daily Care Interventions Self-Care Promotion -- independence encouraged;BADL personal objects within reach [place] Fall Risk History of Falling -- 25 Secondary Diagnosis -- 15 Ambulatory Aids -- 15 Intravenous Therapy/Heparin/Saline Lock -- 0 Gait/Transferring -- 10 Mental Status -- 15 Score -- 80 OTHER [place] Fall Risk -- High Goal: Infection Control Outcome: Ongoing (Interventions Implemented as Appropriate) 10/29/172126 Coping Strategies Supportive Measures active listening utilized;goal setting facilitated;positive reinforcement provided;verbalization of feelings encouraged Safety Interventions Isolation Precautions standard precautions maintained Infection Prevention environmental surveillance performed;rest/sleep promoted;single patient room provided Goal: Discharge Needs Assessment Outcome: Ongoing (Interventions Implemented as Appropriate) 09/08/17 0403 09/18/17 1250 10/03/17 1654 Discharge Needs Assessment Concerns To Be Addressed -- -- -- Readmission Within The Last 30 Days -- -- -- Equipment Needed After Discharge -- other (see comments) (TBD) -- Discharge Facility/Level Of Care Needs -- -- adult foster care/nursing home Current Discharge Risk -- cognitively impaired;physical impairment -- Discharge Disposition -- still a patient -- Current Health Outpatient/Agency/Support Group Needs -- nursing home (specify) -- Anticipated Changes Related to Illness none -- -- Living Environment Transportation Available -- car (caregiver from nursing home) -- Activity/Self Care Review of Systems Equipment Currently Used at Home -- none -- 10/14/17 0631 Discharge Needs Assessment Concerns To Be Addressed no discharge needs identified;denies needs/concerns at this time Readmission Within The Last 30 Days no previous admission in last 30 days Equipment Needed After Discharge -- Discharge Facility/Level Of Care Needs -- Current Discharge Risk -- Discharge Disposition -- Current Health Outpatient/Agency/Support Group Needs -- Anticipated Changes Related to Illness -- Living Environment Transportation Available -- Activity/Self Care Review of Systems Equipment Currently Used at Home -- Goal: Interdisciplinary Rounds/Family Conf Outcome: Ongoing (Interventions Implemented as Appropriate) 10/30/17 0552 Interdisciplinary Rounds/Family Conf Participants patient;physician;nursing Problem: Skin Integrity Impairment, Risk/Actual (Adult) Goal: Skin Integrity/Wound Healing Patient will demonstrate the desired outcomes by discharge/transition of care. Outcome: Ongoing (Interventions Implemented as Appropriate) 10/29/17 1441 Skin Integrity Impairment, Risk/Actual (Adult) Skin Integrity/Wound Healing making progress toward outcome * Plan of Care - Lenore Yates RN - 10/29/2017 2:54 PM EDT Problem: Patient Care Overview Goal: Plan of Care Review Outcome: Ongoing (Interventions Implemented as Appropriate) 10/29/17 1441 Coping/Psychosocial Plan Of Care Reviewed With patient Plan of Care Review Progress no change OUTCOME EVALUATION NOTE: OUTCOME SUMMARY: Pt sleeping between care at beginning of shift, but became increasingly agitated/restless as morning went on. PRN ativan was given w/ positive effect. Pt up in wheelchair and went around unit w/ caregiver. Continues to have muscle spasms, but denies pain when not having a spasm. Incontinence care provided as needed. Will continue to monitor. PLAN MOVING FORWARD: Mobilize Pain control D/c planning INDIVIDUALIZED FALL PREVENTION INTERVENTIONS: Patient-specific fall risk factors per assessment: [current deficits]: History of falls TTWB LLE Blind Assistance [level of assistance required for transfers and ambulation]: 1-2 assist w/ walker Supervision [direct monitoring required during toileting and ADLs]: Hands on Surveillance [continuous indirect monitoring]: Call morris Caregiver/sitter at bedside Purposeful rounding Patient-specific fall prevention interventions for sensory deficits provided, if applicable: [X] N/A CPG GOAL OUTCOME EVALUATION: * Plan of Care - Elsy Mei RN - 10/29/2017 3:58 AM EDT Problem: Patient Care Overview Goal: Plan of Care Review Outcome: Ongoing (Interventions Implemented as Appropriate) 10/24/17 0125 10/28/17 220 Coping/Psychosocial Plan Of Care Reviewed With -- patient Plan of Care Review Progress no change -- OUTCOME EVALUATION NOTE: OUTCOME SUMMARY: Patient alert; VSs stable. No events overnight. Robaxin dose increased d/t increasing muscle crampsof left calf. Pain well controlled with scheduled dilaudid. Pt slept between care. Incontinent of urine; incontinence care provided. Sitter remains at bedside. Will continue to monitor. PLAN MOVING FORWARD: Continue to monitor pain, encourage ambulation/mobilize, 3.2L/day fluid restriction, discharge planning. INDIVIDUALIZED FALL PREVENTION INTERVENTIONS: Patient-specific fall risk factors per assessment: [current deficits]: Narcotic medications, surgery, hospital environment, generalized weakness, TDWB LLE, blind Assistance [level of assistance required for transfers and ambulation]: One to two person assist OOB. Supervision [direct monitoring required during toileting and ADLs]: Hands on. Surveillance [continuous indirect monitoring]: Jeet, purposeful rounding, NKE, sitter at bedside. Patient-specific fall prevention interventions for sensory deficits provided, if applicable: CPG GOAL OUTCOME EVALUATION: Goal: Individualization & Mutuality Outcome: Ongoing (Interventions Implemented as Appropriate) 10/17/17 1745 10/19/17 0608 10/28/17 0350 Individualization Patient Specific Preferences -- cluster care to promote rest -- Patient Specific Goals -- limit interuptions to pt's rest periods, maintain safety plan -- Patient Specific Interventions -- -- cluster care, sitter at bedside, fluid restriction (3200mL) Mutuality/Individual Preferences What Anxieties, Fears or Concerns Do You Have About Your Health or Care? ISHAAN -- -- What Questions Do You Have About Your Health or Care? ISHAAN -- -- What Information Would Help Us Give You More Personalized Care? ISHAAN -- -- Goal: Fall Prevention-Safe Patient Handling Outcome: Ongoing (Interventions Implemented as Appropriate) 10/28/17 1248 10/28/17 2200 Restraint Interventions Safety Promotion/Fall Prevention -- activity supervised;fall prevention program maintained;nonskid shoes/slippers when out of bed;safety round/check completed Activity Activity Type -- activity adjusted per tolerance Activity Assistance Provided assistance, 1 person -- Assistive Device Utilized none -- Positioning Body Position -- independent Daily Care Interventions Self-Care Promotion -- independence encouraged;BADL personal objects within reach [place] Fall Risk History of Falling -- 25 Secondary Diagnosis -- 15 Ambulatory Aids -- 0 Intravenous Therapy/Heparin/Saline Lock -- 0 Gait/Transferring -- 10 Mental Status -- 15 Score -- 65 OTHER [place] Fall Risk -- High Goal: Infection Control Outcome: Ongoing (Interventions Implemented as Appropriate) 10/28/17 2200 Coping Strategies Supportive Measures active listening utilized;goal setting facilitated;positive reinforcement provided;verbalization of feelings encouraged;relaxation techniques promoted Safety Interventions Isolation Precautions standard precautions maintained Infection Prevention environmental surveillance performed;rest/sleep promoted;single patient room provided Goal: Discharge Needs Assessment Outcome: Ongoing (Interventions Implemented as Appropriate) 09/08/17 0403 09/18/17 1250 10/03/17 1654 Discharge Needs Assessment Concerns To Be Addressed -- -- -- Readmission Within The Last 30 Days -- -- -- Equipment Needed After Discharge -- other (see comments) (TBD) -- Discharge Facility/Level Of Care Needs -- -- adult foster care/nursing home Current Discharge Risk -- cognitively impaired;physical impairment -- Discharge Disposition -- still a patient -- Current Health Outpatient/Agency/Support Group Needs -- nursing home (specify) -- Anticipated Changes Related to Illness none -- -- Living Environment Transportation Available -- car (caregiver from nursing home) -- Activity/Self Care Review of Systems Equipment Currently Used at Home -- none -- 10/14/17 0631 Discharge Needs Assessment Concerns To Be Addressed no discharge needs identified;denies needs/concerns at this time Readmission Within The Last 30 Days no previous admission in last 30 days Equipment Needed After Discharge -- Discharge Facility/Level Of Care Needs -- Current Discharge Risk -- Discharge Disposition -- Current Health Outpatient/Agency/Support Group Needs -- Anticipated Changes Related to Illness -- Living Environment Transportation Available -- Activity/Self Care Review of Systems Equipment Currently Used at Home -- Goal: Interdisciplinary Rounds/Family Conf Outcome: Ongoing (Interventions Implemented as Appropriate) 10/24/17 0125 Interdisciplinary Rounds/Family Conf Participants nursing;patient Problem: Skin Integrity Impairment, Risk/Actual (Adult) Goal: Skin Integrity/Wound Healing Patient will demonstrate the desired outcomes by discharge/transition of care. Outcome: Ongoing (Interventions Implemented as Appropriate) 10/28/17 0350 Skin Integrity Impairment, Risk/Actual (Adult) Skin Integrity/Wound Healing making progress toward outcome * Plan of Care - Kris Crawley - 10/28/2017 4:01 PM EDT Problem: Patient Care Overview Goal: Plan of Care Review Outcome: Ongoing (Interventions Implemented as Appropriate) 10/24/17 0125 10/27/17 2149 Coping/Psychosocial Plan Of Care Reviewed With -- patient Plan of Care Review Progress no change -- OUTCOME EVALUATION NOTE: OUTCOME SUMMARY: Pt was alert throughout shift, caregiver at side and active in patient care. Patients pain adequately controlled, PRN ativan given for agitation, see MAR for medications given. Pt went around facility w/ caregiver and SCREENER AND BLENDER in wheelchair. Less than 2000ml given throughout day. See Doc Flowsheet for details. Incontinence care given post urine and stool occurrence. Will continue to monitor and help patient reach d/c goals. PLAN MOVING FORWARD: Pain control Mobilize out of bed. D/c planning INDIVIDUALIZED FALL PREVENTION: Patient is currently a high risk to Fall. board design engineer at bedside or one-to-one monitoring in place Patient-specific fall risk factors per assessment: [current deficits]: Cognitive impairment, Pain, Medications, Hospital Environment. Assistance [level of assistance required for transfers and ambulation]: 1 assist to wheelchair Supervision [direct monitoring required during toileting and ADLs]: Hands on assistance with ADL's Surveillance [continuous indirect monitoring]: One-to-one monitoring, Masimo, Purposeful Rounding, Bedside Report Patient-specific fall prevention interventions for sensory deficits provided, if applicable: One-to-One sitter need. CPG GOAL OUTCOME EVALUATION: Goal: Individualization & Mutuality Outcome: Ongoing (Interventions Implemented as Appropriate) 10/17/17 1745 10/19/17 0608 10/28/17 0350 Individualization Patient Specific Preferences -- cluster care to promote rest -- Patient Specific Goals -- limit interuptions to pt's rest periods, maintain safety plan -- Patient Specific Interventions -- -- cluster care, sitter at bedside, fluid restriction (3200mL) Mutuality/Individual Preferences What Anxieties, Fears or Concerns Do You Have About Your Health or Care? ISHAAN -- -- What Questions Do You Have About Your Health or Care? ISHAAN -- -- What Information Would Help Us Give You More Personalized Care? ISHAAN -- -- Goal: Fall Prevention-Safe Patient Handling Outcome: Ongoing (Interventions Implemented as Appropriate) 10/27/17214810/28/17 1059 10/28/17 1248 Restraint Interventions Safety Promotion/Fall Prevention -- activity supervised;safety round/check completed -- Activity Activity Type -- -- activity adjusted per tolerance;up in chair Activity Assistance Provided -- -- assistance, 1 person Assistive Device Utilized -- -- none Positioning Body Position -- -- independent Daily Care Interventions Self-Care Promotion independence encouraged;BADL personal objects within reach -- -- [place] Fall Risk History of Falling -- 25 -- Secondary Diagnosis -- 15 -- Ambulatory Aids -- 0 -- Intravenous Therapy/Heparin/Saline Lock -- 0 -- Gait/Transferring -- 10 -- Mental Status -- 15 -- Score -- 65 -- OTHER [place] Fall Risk High -- -- Goal: Infection Control 10/28/17 10510/28/17 1539 Coping Strategies Supportive Measures -- active listening utilized;positive reinforcement provided;relaxation techniques promoted Safety Interventions Isolation Precautions standard precautions maintained -- Infection Prevention personal protective equipment utilized -- Goal: Discharge Needs Assessment 09/08/17 0403 09/18/17 1250 10/03/17 1654 Discharge Needs Assessment Concerns To Be Addressed -- -- -- Readmission Within The Last 30 Days -- -- -- Equipment Needed After Discharge -- other (see comments) (TBD) -- Discharge Facility/Level Of Care Needs -- -- adult foster care/nursing home Current Discharge Risk -- cognitively impaired;physical impairment -- Discharge Disposition -- still a patient -- Current Health Outpatient/Agency/Support Group Needs -- nursing home (specify) -- Anticipated Changes Related to Illness none -- -- Living Environment Transportation Available -- car (caregiver from nursing home) -- Activity/Self Care Review of Systems Equipment Currently Used at Home -- none -- 10/14/17 0631 Discharge Needs Assessment Concerns To Be Addressed no discharge needs identified;denies needs/concerns at this time Readmission Within The Last 30 Days no previous admission in last 30 days Equipment Needed After Discharge -- Discharge Facility/Level Of Care Needs -- Current Discharge Risk -- Discharge Disposition -- Current Health Outpatient/Agency/Support Group Needs -- Anticipated Changes Related to Illness -- Living Environment Transportation Available -- Activity/Self Care Review of Systems Equipment Currently Used at Home -- Goal: Interdisciplinary Rounds/Family Conf Outcome: Ongoing (Interventions Implemented as Appropriate) 10/24/17 0125 Interdisciplinary Rounds/Family Conf Participants nursing;patient * Plan of Care - Elsy Mei RN - 10/28/2017 3:58 AM EDT Problem: Patient Care Overview Goal: Plan of Care Review Outcome: Ongoing (Interventions Implemented as Appropriate) 10/24/17 01210/27/17 2149 Coping/Psychosocial Plan Of Care Reviewed With -- patient Plan of Care Review Progress no change -- OUTCOME EVALUATION NOTE: OUTCOME SUMMARY: Patient alert; VSs stable. Patient very agitated at start of shift, visibly uncomfortable, and aggressive toward staff; administered PRN dilaudid and Ativan with good effect. Patient incontinent of large amounts of urine; incontinence care provided (x4 thus far this shift). Skin tear noted on lateral aspect of right ankle; mepilex applied. Patient slept between care. Will continue to monitor. PLAN MOVING FORWARD: Continue to monitor pain, mobilize, fluid restriction (3200 mL/day), discharge planning. INDIVIDUALIZED FALL PREVENTION INTERVENTIONS: Patient-specific fall risk factors per assessment: [current deficits]: Narcotic medications, surgery, hospital environment, generalized weakness, cognitively impaired, blind, TDWB Assistance [level of assistance required for transfers and ambulation]: Independent bed position, 2person assist OOB to w/c Supervision [direct monitoring required during toileting and ADLs]: Hands on. Surveillance [continuous indirect monitoring]: Jeet purposeful rounding, GRABIEL, sitter at bedside Patient-specific fall prevention interventions for sensory deficits provided, if applicable: CPG GOAL OUTCOME EVALUATION: Goal: Individualization & Mutuality Outcome: Ongoing (Interventions Implemented as Appropriate) 10/17/17 1745 10/19/17 0608 10/28/17 0350 Individualization Patient Specific Preferences -- cluster care to promote rest -- Patient Specific Goals -- limit interuptions to pt's rest periods, maintain safety plan -- Patient Specific Interventions -- -- cluster care, sitter at bedside, fluid restriction (3200mL) Mutuality/Individual Preferences What Anxieties, Fears or Concerns Do You Have About Your Health or Care? ISHAAN -- -- What Questions Do You Have About Your Health or Care? ISHAAN -- -- What Information Would Help Us Give You More Personalized Care? ISHAAN -- -- Goal: Fall Prevention-Safe Patient Handling Outcome: Ongoing (Interventions Implemented as Appropriate) 10/27/172148 Restraint Interventions Safety Promotion/Fall Prevention activity supervised;fall prevention program maintained;nonskid shoes/slippers when out of bed;safety round/check completed Activity Activity Type activity adjusted per tolerance Activity Assistance Provided assistance, 2 people Assistive Device Utilized none Positioning Body Position independent Daily Care Interventions Self-Care Promotion independence encouraged;BADL personal objects within reach [place] Fall Risk History of Falling 25 Secondary Diagnosis 15 Ambulatory Aids 0 Intravenous Therapy/Heparin/Saline Lock 0 Gait/Transferring 10 Mental Status 15 Score 65 OTHER [place] Fall Risk High Goal: Infection Control Outcome: Ongoing (Interventions Implemented as Appropriate) 10/27/172148 Coping Strategies Supportive Measures active listening utilized;guided imagery facilitated;positive reinforcement provided;verbalization of feelings encouraged Safety Interventions Isolation Precautions standard precautions maintained Infection Prevention environmental surveillance performed;rest/sleep promoted;single patient room provided Goal: Discharge Needs Assessment Outcome: Ongoing (Interventions Implemented as Appropriate) 09/08/17 0403 09/18/17 1250 10/03/17 1654 Discharge Needs Assessment Concerns To Be Addressed -- -- -- Readmission Within The Last 30 Days -- -- -- Equipment Needed After Discharge -- other (see comments) (TBD) -- Discharge Facility/Level Of Care Needs -- -- adult foster care/nursing home Current Discharge Risk -- cognitively impaired;physical impairment -- Discharge Disposition -- still a patient -- Current Health Outpatient/Agency/Support Group Needs -- nursing home (specify) -- Anticipated Changes Related to Illness none -- -- Living Environment Transportation Available -- car (caregiver from nursing home) -- Activity/Self Care Review of Systems Equipment Currently Used at Home -- none -- 10/14/17 0631 Discharge Needs Assessment Concerns To Be Addressed no discharge needs identified;denies needs/concerns at this time Readmission Within The Last 30 Days no previous admission in last 30 days Equipment Needed After Discharge -- Discharge Facility/Level Of Care Needs -- Current Discharge Risk -- Discharge Disposition -- Current Health Outpatient/Agency/Support Group Needs -- Anticipated Changes Related to Illness -- Living Environment Transportation Available -- Activity/Self Care Review of Systems Equipment Currently Used at Home -- Goal: Interdisciplinary Rounds/Family Conf Outcome: Ongoing (Interventions Implemented as Appropriate) 10/24/17 0125 Interdisciplinary Rounds/Family Conf Participants nursing;patient Problem: Skin Integrity Impairment, Risk/Actual (Adult) Goal: Skin Integrity/Wound Healing Patient will demonstrate the desired outcomes by discharge/transition of care. Outcome: Ongoing (Interventions Implemented as Appropriate) 10/28/17 0350 Skin Integrity Impairment, Risk/Actual (Adult) Skin Integrity/Wound Healing making progress toward outcome * Plan of Care - Radha Benitez RN - 10/27/2017 6:42 PM EDT Problem: Patient Care Overview Goal: Plan of Care Review OUTCOME EVALUATION NOTE: OUTCOME SUMMARY: Pt. Rested between care this shift. Caregiver at bedside, assisting in pt. Care. Pt. Went out in the wheelchair with the caregiver for an hour this AM. Pt. Encouraged to be OOB in the wheelchair thisshift. No signs or symptoms of acute distress at this time. Will continue to monitor. PLAN MOVING FORWARD: Pain control, maintain pt. Safety, PT/OT, d/c planning INDIVIDUALIZED FALL PREVENTION INTERVENTIONS: Patient-specific fall risk factors per assessment: [current deficits]: NWB LLE, cognitive impairment Assistance [level of assistance required for transfers and ambulation]: 2 people Supervision [direct monitoring required during toileting and ADLs]: Hands on, eyes on Surveillance [continuous indirect monitoring]: Caregiver at bedside, hourly rounding Patient-specific fall prevention interventions for sensory deficits provided, if applicable: [X] N/A CPG GOAL OUTCOME EVALUATION: * Plan of Care - Elsy Mei RN - 10/27/2017 4:42 AM EDT Problem: Patient Care Overview Goal: Plan of Care Review Outcome: Ongoing (Interventions Implemented as Appropriate) 10/24/17 0125 10/26/176 Coping/Psychosocial Plan Of Care Reviewed With -- patient;other (see comments) (SCREENER AND BLENDER/sitter) Plan of Care Review Progress no change -- OUTCOME EVALUATION NOTE: OUTCOME SUMMARY: Patient alert; VSs stable. Pt was rather restless until approx. 0330; PRN ativan and dilaudid administered to good effect. Incontinence care provided. Will continue to monitor. PLAN MOVING FORWARD: Continue to monitor pain, encourage ambulation, 3200 mL fluid restriction, discharge planning. INDIVIDUALIZED FALL PREVENTION INTERVENTIONS: Patient-specific fall risk factors per assessment: [current deficits]: Narcotic medications, surgery, trauma, hospital environment, generalized weakness, cognitively impaired, blind Assistance [level of assistance required for transfers and ambulation]: Independent bed position Supervision [direct monitoring required during toileting and ADLs]: Hands on Surveillance [continuous indirect monitoring]: Masimo, purposeful rounding, NKE, sitter Patient-specific fall prevention interventions for sensory deficits provided, if applicable: CPG GOAL OUTCOME EVALUATION: Goal: Individualization & Mutuality Outcome: Ongoing (Interventions Implemented as Appropriate) 10/17/17 1745 10/19/17 0608 10/22/17 0354 Individualization Patient Specific Preferences -- cluster care to promote rest -- Patient Specific Goals -- limit interuptions to pt's rest periods, maintain safety plan -- Patient Specific Interventions -- -- cluster care, sitter at bedside Mutuality/Individual Preferences What Anxieties, Fears or Concerns Do You Have About Your Health or Care? ISHAAN -- -- What Questions Do You Have About Your Health or Care? ISHAAN -- -- What Information Would Help Us Give You More Personalized Care? ISHAAN -- -- Goal: Fall Prevention-Safe Patient Handling Outcome: Ongoing (Interventions Implemented as Appropriate) 10/26/17 0935 10/26/17 2136 10/27/17 0400 Restraint Interventions Safety Promotion/Fall Prevention -- -- safety round/check completed Activity Activity Type -- activity adjusted per tolerance -- Activity Assistance Provided -- assistance, 2 people -- Assistive Device Utilized wheelchair -- -- Positioning Body Position -- -- independent Daily Care Interventions Self-Care Promotion -- -- independence encouraged [place] Fall Risk History of Falling -- 25 -- Secondary Diagnosis -- 15 -- Ambulatory Aids -- 15 -- Intravenous Therapy/Heparin/Saline Lock -- 0 -- Gait/Transferring -- 10 -- Mental Status -- 15 -- Score -- 80 -- OTHER [place] Fall Risk -- High -- Goal: Infection Control Outcome: Ongoing (Interventions Implemented as Appropriate) 10/26/176 10/27/17 0400 Coping Strategies Supportive Measures active listening utilized;goal setting facilitated;positive reinforcement provided;verbalization of feelings encouraged -- Safety Interventions Isolation Precautions -- standard precautions maintained Infection Prevention -- single patient room provided;rest/sleep promoted Goal: Discharge Needs Assessment Outcome: Ongoing (Interventions Implemented as Appropriate) 09/08/17 0403 09/18/17 1250 10/03/17 1654 Discharge Needs Assessment Concerns To Be Addressed -- -- -- Readmission Within The Last 30 Days -- -- -- Equipment Needed After Discharge -- other (see comments) (TBD) -- Discharge Facility/Level Of Care Needs -- -- adult foster care/nursing home Current Discharge Risk -- cognitively impaired;physical impairment -- Discharge Disposition -- still a patient -- Current Health Outpatient/Agency/Support Group Needs -- nursing home (specify) -- Anticipated Changes Related to Illness none -- -- Living Environment Transportation Available -- car (caregiver from nursing home) -- Activity/Self Care Review of Systems Equipment Currently Used at Home -- none -- 10/14/17 0631 Discharge Needs Assessment Concerns To Be Addressed no discharge needs identified;denies needs/concerns at this time Readmission Within The Last 30 Days no previous admission in last 30 days Equipment Needed After Discharge -- Discharge Facility/Level Of Care Needs -- Current Discharge Risk -- Discharge Disposition -- Current Health Outpatient/Agency/Support Group Needs -- Anticipated Changes Related to Illness -- Living Environment Transportation Available -- Activity/Self Care Review of Systems Equipment Currently Used at Home -- Goal: Interdisciplinary Rounds/Family Conf Outcome: Ongoing (Interventions Implemented as Appropriate) 10/24/17 012 Interdisciplinary Rounds/Family Conf Participants nursing;patient Problem: Skin Integrity Impairment, Risk/Actual (Adult) Goal: Skin Integrity/Wound Healing Patient will demonstrate the desired outcomes by discharge/transition of care. Outcome: Ongoing (Interventions Implemented as Appropriate) 10/24/17 0125 Skin Integrity Impairment, Risk/Actual (Adult) Skin Integrity/Wound Healing making progress toward outcome * Plan of Care - Ximena Lou RN - 10/26/2017 3:13 PM EDT Problem: Patient Care Overview Goal: Plan of Care Review Outcome: Ongoing (Interventions Implemented as Appropriate) 10/24/17 0125 10/26/17 0935 Coping/Psychosocial Plan Of Care Reviewed With -- patient;caregiver Plan of Care Review Progress no change -- OUTCOME EVALUATION NOTE: OUTCOME SUMMARY: Patient resting between care today. Restless and yelling out at times. Sleeping intermittently. Patient up in wheelchair for about an hour with rn medicare. Remains incontinent. board design engineer at bedside.Will continue to monitor. PLAN MOVING FORWARD: Pain control, increase mobility, ongoing d/c planning INDIVIDUALIZED FALL PREVENTION INTERVENTIONS: Patient-specific fall risk factors per assessment: [current deficits]: Pain, medications, impaired mobility, cognitive impairment Assistance [level of assistance required for transfers and ambulation]: 2 assist, wheelchair Supervision [direct monitoring required during toileting and ADLs]: Hands on with ADLs Surveillance [continuous indirect monitoring]: Sitter at bedside, purposeful rounding Patient-specific fall prevention interventions for sensory deficits provided, if applicable: Sitterat bedside CPG GOAL OUTCOME EVALUATION: * Plan of Care - Laura Vasquez RN - 10/26/2017 2:24 AM EDT Problem: Patient Care Overview Goal: Fall Prevention-Safe Patient Handling Outcome: Ongoing (Interventions Implemented as Appropriate) 10/24/17 2115 10/25/17 1100 10/25/17 1816 Restraint Interventions Safety Promotion/Fall Prevention -- -- -- Activity Activity Type -- other (see comments) (pt escorted outside by two RNs for 15 minute outdoor time) -- Activity Assistance Provided -- -- assistance, 2 people Assistive Device Utilized -- wheelchair -- Positioning Body Position -- -- -- Daily Care Interventions Self-Care Promotion independence encouraged -- -- [place] Fall Risk History of Falling -- -- -- Secondary Diagnosis -- -- -- Ambulatory Aids -- -- -- Intravenous Therapy/Heparin/Saline Lock -- -- -- Gait/Transferring -- -- -- Mental Status -- -- -- Score -- -- -- OTHER [place] Fall Risk -- -- -- 10/25/172033 Restraint Interventions Safety Promotion/Fall Prevention activity supervised;fall prevention program maintained;nonskid shoes/slippers when out of bed;safety round/check completed;toileting scheduled Activity Activity Type -- Activity Assistance Provided -- Assistive Device Utilized -- Positioning Body Position supine, head elevated Daily Care Interventions Self-Care Promotion -- [place] Fall Risk History of Falling 25 Secondary Diagnosis 15 Ambulatory Aids 15 Intravenous Therapy/Heparin/Saline Lock 0 Gait/Transferring 10 Mental Status 15 Score 80 OTHER [place] Fall Risk High OUTCOME EVALUATION NOTE: OUTCOME SUMMARY: This patient's skin remains intact at this time with no reddened areas. Pt currently repositioning self in bed every 2 hrs. Pt encouraged to reposition self every 2 hrs to prevent skin breakdown and alert nurse when help is needed to do so. Will continue to monitor. This patient denies chest pain, shortness of breath, and nausea. Last recorded vital signs: Last value Temperature Temp: 36.9 ??C (98.4 ??F) Heart Rate Heart Rate: 85 Blood Pressure BP: (!) 137/105 Respiratory Rate Resp: 16 SpO2 SpO2: 97 % Recorded I/O: PLAN MOVING FORWARD: The plan moving forward with this patient is to work with PT/OT to increase this patients independence with ADLs. INDIVIDUALIZED FALL PREVENTION INTERVENTIONS: Patient-specific fall risk factors per assessment: [current deficits]: This patient has decreased his mobility and sensory impairment in relation to receiving the medication hydromorphone. Assistance [level of assistance required for transfers and ambulation]: This patient requires two assist to get out of bed to chair. Supervision [direct monitoring required during toileting and ADLs]: This patient requires two assist with ADLs. Surveillance [continuous indirect monitoring]: Jeet nursing knowledge exchange, purposeful rounding. Patient has history of: No past medical history on file. Past Surgical History: Procedure Laterality Date ??? PRO OPEN CROSSCUTTER ROLLED GLASS FIX ACETABULAR FX Left 09/04/2017 @OPEN TREATMENT, ACETABULAR FX (WRVU 25.41) performed by Amy Lance MD at [facility] MAIN OR Patient has following SCHEDULED medications: ??? methocarbamol 500 mg Oral TID ??? senna-docusate 1 tablet Oral Daily ??? sodium chloride 0.9 % 5 mL Intravenous Q12H ??? melatonin 9 mg Oral Nightly ??? testosterone 5 g Transdermal Nightly ??? acetaminophen 1,000 mg Oral Q8H ??? HYDROmorphone 6 mg Oral Nightly ??? desmopressin 0.05 mg Oral 3 times per day ??? methyl salicylate-menthol Topical (Top) BID ??? calcium carbonate 500 mg Oral BID ??? cholecalciferol (Vitamin D3) 1,000 Units Oral Daily ??? hydrocortisone 20 mg Oral QAM ??? hydrocortisone 10 mg Oral Daily at Noon ??? hydrocortisone 10 mg Oral Q24H ??? enoxaparin 40 mg Subcutaneous Nightly ??? levothyroxine 150 mcg Oral QAM ??? pantoprazole 40 mg Oral QAM AC ??? QUEtiapine 250 mg Oral Nightly ??? traZODone 50 mg Oral Nightly ??? zonisamide 200 mg Oral Nightly Patient has following PRN medications: simethicone, sodium chloride 0.9 %, lidocaine, HYDROmorphone, bisacodyl, LORazepam, haloperidol, polyethylene glycol (MIRALAX)oral powder, senna- docusate, naphazoline-pheniramine CPG GOAL OUTCOME EVALUATION: Goal: Infection Control Outcome: Ongoing (Interventions Implemented as Appropriate) 10/25/172033 Coping Strategies Supportive Measures active listening utilized Safety Interventions Isolation Precautions standard precautions maintained Infection Prevention environmental surveillance performed;rest/sleep promoted;single patient room provided Goal: Interdisciplinary Rounds/Family Conf Outcome: Ongoing (Interventions Implemented as Appropriate) 10/24/17124 Interdisciplinary Rounds/Family Conf Participants nursing;patient Problem: Skin Integrity Impairment, Risk/Actual (Adult) Goal: Skin Integrity/Wound Healing Patient will demonstrate the desired outcomes by discharge/transition of care. Outcome: Ongoing (Interventions Implemented as Appropriate) 10/24/175 Skin Integrity Impairment, Risk/Actual (Adult) Skin Integrity/Wound Healing making progress toward outcome * Plan of Care - Ren Walters OTA - 10/25/2017 3:10 PM EDT Occupational Therapy Treatment Note Pertinent History of Current Problem: (P) Pt is a 27 yo man with a history of resection of pituitary tumor, intraoperative hemorrhage and CVA, cognitive impairment, cortical blindness, partial L sided paralysis, seizure disorder, and panhypopituitarism (with DI, adrenal insufficiency, hypothyroidism, hypogonadism) here with a left acetabular fracture that occurred in the setting of a possible seizure. Precautions/Restrictions: (P) fall Precautions Comments: (P) L side weaker than R at baseline. Blind. Assessment: Pt seen for skilled OT interventions. Session focussed on LB/UB dressing, safe transfers, functional mobility and purposeful play. Pt was having a rough day with his caregiver but was able to turn things around for therapy. Pt responded very well to quick rewards (prefrers food, fruits)and was able to don clothing, keep it on through out session and doff them with ripping them up. Ptwas able to tolerate going outside for a play activity and really enjoyed the sunshine. Next session will focus on toileting goals. Pt will benefit from ongoing therapeutic interventions to achieve pt's and therapy goals. Please refer to associated flowsheet data listed below for treatment session details. Staff Recommendations: Encourage OOB activity and participation in all self care tasks Anticipated Discharge Disposition: (P) half-way facility Pager: [phone] ZULMA Vargas 10/27/2017 Occupational Therapy Rehabilitation Department 10/25/17 1510 Rehab Evaluation Document Type therapy note (daily note) Total Evaluation Minutes, Occupational Therapy 45 Patient Effort excellent Symptoms Noted During/After Treatment none General Information Patient Profile Review yes Patient/Family/Caregiver Comments/Observations Pt having a rough day but able to turn it aroud for therapy General Observations of Patient Pt willing to participate with therapy Pertinent History of Current Problem Pt is a 27 yo man with a history of resection of pituitary tumor, intraoperative hemorrhage and CVA, cognitive impairment, cortical blindness, partial L sided paralysis, seizure disorder, and panhypopituitarism (with DI, adrenal insufficiency, hypothyroidism, hyp ogonadism) here with a left acetabular fracture that occurred in the setting of a possible seizure. Hearing Precautions/Limitations WFL Precautions/Restrictions fall Precautions Comments L side weaker than R at baseline. Blind. Limitations/Impairments safety/cognitive Treatment Number OT 11 Cognitive Assessment Interventions Behavior/Mood Observations (Cognitive) alert;cooperative Orientation Status (Cognitive) unable/difficult to assess Attention (Cognitive) unable/difficult to assess Follows Commands/Answers Questions (Cognitive) 100% of the time;needs cueing;needs increased time;needs repetition Personal Safety (Cognitive) severe impairment;at risk behaviors demonstrated;decreased awareness, need for assist;decreased awareness, need for safety;decreased insight to deficits Pain Scale/Rating Pain Assessment Scale Faces (Roberson-Carter FACES Pain Rating Scale) Pain Level 5 Bed Mobility Assessment/Treatment Lzieef-md-Ezo [place] (Bed Mobility) verbal cues required (extended time) Transfer Assessment/Treatment [place] (Sit-Stand Transfers) contact guard assist [place] (Stand-Sit Transfers) contact guard assist [id number] Assistive Device (Transfers) rolling walker Bed-Chair [place] (Transfers) minimum assist (75% patient effort);verbal cues required Wheelchair Training/Management Transfer Type (Wheelchair) stand pivot transfer Propulsion Training (Wheelchair) forward propulsion Distance Propelled in Feet (Wheelchair) 50ft Lower Body Dressing Assessment/Training Position (LB Dressing) sitting (supine in bed) [place] Level (LB Dressing) conditional independence Impairments (LB Dressing) vision impaired Comment (LB Dressing) pt able to don AND doff pants without ripping them LB Dressing Goal LB Dressing Goal, Time to Achieve 2 wks LB Dressing Goal, Activity Type Pt will maintain weight bearing restrictions and be able to sustainstanding with 1 assist and walker as caregiver hikes pants to/from waist. LB Dressing Goal, Outcome goal ongoing Occupational Therapy Goal OT Goal, Time to Achieve 2 wks OT Goal, Activity Type Pt will tolerate sitting upright in chair for > 30 min for ther. activity/play task. OT Goal, Additional Goal Pt will tolerate >20 minutes of aerobic activity/UE exercise in order to increase general activity tolerance and performance in ADLs/IADLs. OT Goal, Outcome goal met Clinical Impression Criteria for Skilled Therapeutic Interventions Met yes;treatment indicated Rehab Potential fair, will monitor progress closely Therapy Frequency 2-4 times/wk Anticipated Discharge Disposition half-way facility * Med Student Progress Note - Bonnie Velásquez 10/25/2017 7:42 AM EDT [facility] Medicine Attending Daily Progress Note Admit Date: 09/02/2017 Hospital Day 53 days Active Hospital Problems Diagnosis ??? S/P ORIF left acetabulum fracture 09/04/2017 Dr. Lance ??? Postoperative anemia due to acute blood loss ??? Diabetes insipidus ??? Adrenal insufficiency ??? Panhypopituitarism ??? Seizure disorder ??? Hypothyroidism Resolved Hospital Problems Diagnosis Date Resolved No resolved problems to display. PMH Active Non-Hospital Problems Diagnosis ??? Insomnia ??? Blind ??? CVA (cerebral vascular accident) ??? Urinary incontinence Inpatient Medications: Scheduled ??? methocarbamol 500 mg Oral TID ??? senna-docusate 1 tablet Oral Daily ??? sodium chloride 0.9 % 5 mL Intravenous Q12H ??? melatonin 9 mg Oral Nightly ??? testosterone 5 g Transdermal Nightly ??? acetaminophen 1,000 mg Oral Q8H ??? HYDROmorphone 6 mg Oral Nightly ??? desmopressin 0.05 mg Oral 3 times per day ??? methyl salicylate-menthol Topical (Top) BID ??? calcium carbonate 500 mg Oral BID ??? cholecalciferol (Vitamin D3) 1,000 Units Oral Daily ??? hydrocortisone 20 mg Oral QAM ??? hydrocortisone 10 mg Oral Daily at Noon ??? hydrocortisone 10 mg Oral Q24H ??? enoxaparin 40 mg Subcutaneous Nightly ??? levothyroxine 150 mcg Oral QAM ??? pantoprazole 40 mg Oral QAM AC ??? QUEtiapine 250 mg Oral Nightly ??? traZODone 50 mg Oral Nightly ??? zonisamide 200 mg Oral Nightly Continuous infusions: PRN: simethicone, sodium chloride 0.9 %, lidocaine, HYDROmorphone, bisacodyl, LORazepam, haloperidol, polyethylene glycol (MIRALAX)oral powder, senna- docusate, naphazoline-pheniramine Interval History: Started on scheduled bowel meds and methocarbamol yesterday, improved muscle cramps. Slept well overnight, some agitation this morning. This morning he is awake, alert and interactive, playing cards with caregiver at table in his wheelchair. He continues to have good PO intake He denies any pain. Caregiver at bedside, no concerns. Physical Exam Vitals Range last 24 hrs Temperature Temp: [35.9 ??C (96.6 ??F)-36.5 ??C (97.7 ??F)] Heart Rate Heart Rate: -- Blood Pressure BP: (113-137)/(77-105) Respiratory Rate Resp: [16-18] SpO2 SpO2: [94 %-97 %] General: pleasant young man, non-verbal, in no acute distress, sitting in wheelchair HEENT: non-icteric sclera, mild conjunctival pallor Heart: RRR, no m/r/g Lungs: CTAB, no wheezes, crackles Abd: non-tender, mildly distended, +BS Ext: warm and well-perfused, no edema or cyanosis Skin: no rashes or lesions, L hip scar 2/2 hip fracture repair Intake/Output Summary (Last 24 hours) at 10/25/17 1627 Last data filed at 10/25/17 1300 Gross per 24 hour Intake 2910 ml Output 0 ml Net 2910 ml LABS: Last 3 Lytes Recent Labs 10/25/17 0316 10/22/17 0502 10/21/17 0403 NA 139 141 134* K 3.7 4.0 4.3 CL 100 103 95* CO2 26 22 23 BUN 17 11 16 CREATININE 0.90 0.74* 0.91 Assessment/Plan: #Panhypopituitarism with central DI, adrenal insufficiency on chronic steroids, hypothyroidism, hypogonadism BP and Na stable on home DDAVP. -appreciate endocrine recs -DDAVP 0.05mg TID (hold parameters: contact MD and can consider one time hold for Na <135) -BMP q3days -home hydrocortisone 20mg morning, 10mg non, 10mg nightly -home levothyroxine 150mcg daily -on pharmacy equivalent testosterone replacement -encourage good PO intake, fluid oz goal 110 #Left hip fracture s/p repair 09/04 with orthopedics Patient tolerating stand pivot to wheelchair. Did well with PT, will have OT come see him today. -vit D3 1000 units daily -encourage ambulation #Cracked Tooth No evidence of infection, will continue to follow with serial exams. #Agitation #Sleep Wake Disturbance Pain 2/2 hip fracture likely contributing significantly to agitation. Nursing aware that patient does well with redirection. Improvement in agitation with earlier night meds and inc melatonin. -acetaminophen 1g q8hr -dilaudid 6mg nightly -dilaudid 2mg PRN -haldol 2mg q6hr PRN -ativan 0.5mg BID PRN -melatonin 9 mg nightly -encourage waking during day, with windows open, going in wheelchair for walks #Seizure Disorder Stable. -home zonesamide 200 qhs #Muscle Cramps Patient responded well to methocarbamol. -methocarbamol 500mg q8hr -bengay PRN #Constipation Now on routine bowel meds, will likely improve. Can provide PRN miralax in addition if no BM by tomorrow. -pericolace daily -miralax PRN IV access: none Tubes/Drains: none DVT PPX: daily lovenox GI PPX: tums 500mg BID, pantoprazole 40mg morning, dulcolax 10mg suppository PRN Anticipated Disposition: CM working on possible outpatient rehab Goals of Care: FULL CODE Team Pager(MD Coverage 27/01): [phone] PCP: NAKIA Cifuentes [phone] Bonnie Velásquez 10/25/2017 Pager [phone] * Plan of Care - Ren Walters OTA - 10/24/2017 3:49 PM EDT Occupational Therapy Treatment Note Pertinent History of Current Problem: (P) Pt is a 27 yo man with a history of resection of pituitary tumor, intraoperative hemorrhage and CVA, cognitive impairment, cortical blindness, partial L sided paralysis, seizure disorder, and panhypopituitarism (with DI, adrenal insufficiency, hypothyroidism, hypogonadism) here with a left acetabular fracture that occurred in the setting of a possible seizure. Precautions/Restrictions: (P) fall Precautions Comments: (P) L side weaker than R at baseline. Blind. Assessment: Pt seen for skilled OT interventions. Session focussed on dressing activities, transferring to and play activities out of the room. Pt was very complient today with all activities and easily motivated with fruit and ice chips. Next session will continue to focus on functional transfers and play activities. Pt will benefit from ongoing therapeutic interventions to achieve pt's and therapy goals. Please refer to associated flowsheet data listed below for treatment session details. Staff Recommendations: Encourage OOB activity and participation in all self care tasks Anticipated Discharge Disposition: half-way facility Pager: [phone] ZULMA Vargas 10/25/2017 Occupational Therapy Rehabilitation Department 10/24/17 1943 Rehab Evaluation Document Type therapy note (daily note) Total Evaluation Minutes, Occupational Therapy 60 Patient Effort excellent Symptoms Noted During/After Treatment none General Information Patient Profile Review yes Patient/Family/Caregiver Comments/Observations Pt able to participate with therapy General Observations of Patient pt resting in bed when therapy began Pertinent History of Current Problem Pt is a 27 yo man with a history of resection of pituitary tumor, intraoperative hemorrhage and CVA, cognitive impairment, cortical blindness, partial L sided paralysis, seizure disorder, and panhypopituitarism (with DI, adrenal insufficiency, hypothyroidism, hyp ogonadism) here with a left acetabular fracture that occurred in the setting of a possible seizure. Hearing Precautions/Limitations WFL Precautions/Restrictions fall Precautions Comments L side weaker than R at baseline. Blind. Limitations/Impairments safety/cognitive Treatment Number OT 10 Cognitive Assessment Interventions Behavior/Mood Observations (Cognitive) alert;cooperative Follows Commands/Answers Questions (Cognitive) 100% of the time;needs cueing;needs increased time;needs repetition Transfer Assessment/Treatment [place] (Sit-Stand Transfers) contact guard assist [place] (Stand-Sit Transfers) contact guard assist Comment (Transfers) pt did well maintaining his precautions Bed-Chair [place] (Transfers) minimum assist (75% patient effort) [id number] Assistive Device (Transfers) rolling walker Chair-Bed [place] (Transfers) minimum assist (75% patient effort) Lower Body Dressing Assessment/Training Position (LB Dressing) sitting [place] Level (LB Dressing) set up required Impairments (LB Dressing) vision impaired Comment (LB Dressing) to don pants Toileting Assessment/Training Position (Toileting) sitting (EOB) [place] Level (Toileting) set up required Comment (Toileting) to don white t-shirt LB Dressing Goal LB Dressing Goal, Time to Achieve 2 wks LB Dressing Goal, Activity Type Pt will maintain weight bearing restrictions and be able to sustainstanding with 1 assist and walker as caregiver hikes pants to/from waist. LB Dressing Goal, Outcome goal ongoing Occupational Therapy Goal OT Goal, Time to Achieve 2 wks OT Goal, Activity Type Pt will tolerate sitting upright in chair for > 30 min for ther. activity/play task. OT Goal, Outcome goal met * Med Student Progress Note - Bonnie Velásquez - 10/24/2017 7:49 AM EDT Hospital Medicine Attending Daily Progress Note Admit Date: 09/02/2017 Hospital Day 52 days Active Hospital Problems Diagnosis ??? S/P ORIF left acetabulum fracture 09/04/2017 Dr. Lance ??? Postoperative anemia due to acute blood loss ??? Diabetes insipidus ??? Adrenal insufficiency ??? Panhypopituitarism ??? Seizure disorder ??? Hypothyroidism Resolved Hospital Problems Diagnosis Date Resolved No resolved problems to display. PMH Active Non-Hospital Problems Diagnosis ??? Insomnia ??? Blind ??? CVA (cerebral vascular accident) ??? Urinary incontinence Inpatient Medications: Scheduled ??? methocarbamol 500 mg Oral TID ??? sodium chloride 0.9 % 5 mL Intravenous Q12H ??? melatonin 9 mg Oral Nightly ??? testosterone 5 g Transdermal Nightly ??? acetaminophen 1,000 mg Oral Q8H ??? HYDROmorphone 6 mg Oral Nightly ??? desmopressin 0.05 mg Oral 3 times per day ??? methyl salicylate-menthol Topical (Top) BID ??? calcium carbonate 500 mg Oral BID ??? cholecalciferol (Vitamin D3) 1,000 Units Oral Daily ??? hydrocortisone 20 mg Oral QAM ??? hydrocortisone 10 mg Oral Daily at Noon ??? hydrocortisone 10 mg Oral Q24H ??? enoxaparin 40 mg Subcutaneous Nightly ??? levothyroxine 150 mcg Oral QAM ??? pantoprazole 40 mg Oral QAM AC ??? QUEtiapine 250 mg Oral Nightly ??? traZODone 50 mg Oral Nightly ??? zonisamide 200 mg Oral Nightly Continuous infusions: PRN: simethicone, sodium chloride 0.9 %, lidocaine, HYDROmorphone, bisacodyl, LORazepam, haloperidol, polyethylene glycol (MIRALAX)oral powder, senna- docusate, naphazoline-pheniramine Interval History: Muscle cramps developed yesterday, given methocarbamol with good effect. Had moderate agitation yesterday evening, seemed to calm down with PRN ativan, dilaudid. Also given simethicone. Slept well overnight once agitation resolved. Denies any pain. Caregiver at bedside, no concerns. Physical Exam Vitals Range last 24 hrs Temperature Temp: [36.4 ??C (97.5 ??F)-36.6 ??C (97.9 ??F)] Heart Rate Heart Rate: -- Blood Pressure BP: (144-170)/(99-110) Respiratory Rate Resp: [14] SpO2 SpO2: [87 %-96 %] *96% accurate, other measures inaccurate 2/2 patient not keeping sensor on General: pleasant young man, non-verbal, in no acute distress, sleeping but arousable HEENT: non-icteric sclera, mild conjunctival pallor, no LAD. Heart: RRR, no m/r/g Lungs: CTAB, no wheezes, crackles Abd: non-tender, distended, +BS Ext: warm and well-perfused, no edema or cyanosis Skin: no rashes or lesions, L hip scar 2/2 hip fracture repair Intake/Output Summary (Last 24 hours) at 10/24/17 1319 Last data filed at 10/24/17 0900 Gross per 24 hour Intake 1783 ml Output 0 ml Net 1783 ml LABS: Last 3 Lytes Recent Labs 10/22/17 0502 10/21/17 0403 10/19/17 0955 NA 141 134* 141 K 4.0 4.3 3.8 CL 103 95* 101 CO2 22 23 23 BUN 11 16 16 CREATININE 0.74* 0.91 0.98 Assessment/Plan: #Panhypopituitarism with central DI, adrenal insufficiency on chronic steroids, hypothyroidism, hypogonadism BP and Na stable on home DDAVP. -appreciate endocrine recs -DDAVP 0.05mg TID (hold parameters: contact MD and can consider one time hold for Na <135) -BMP q3days -home hydrocortisone 20mg morning, 10mg non, 10mg nightly -home levothyroxine 150mcg daily -on pharmacy equivalent testosterone replacement -encourage good PO intake, fluid oz goal 110 #Left hip fracture s/p repair 09/04 with orthopedics Patient tolerating stand pivot to wheelchair, but increased weakness from before. Reasonable to have PT come work with him again. -vit D3 1000 units daily -encourage ambulation #Cracked Tooth No evidence of infection, will continue to follow with serial exams. #Agitation #Sleep Wake Disturbance Pain 2/2 hip fracture likely contributing significantly to agitation. Improvement in agitation withearlier night meds and inc melatonin. -acetaminophen 1g q8hr -dilaudid 6mg nightly -dilaudid 2mg PRN -haldol 2mg q6hr PRN -ativan 0.5mg BID PRN -melatonin 9 mg nightly -encourage waking during day, with windows open, going in wheelchair for walks #Seizure Disorder Stable. -home zonesamide 200 qhs #Muscle Cramps Patient responded well to methocarbamol. Will schedule this given low side effect profile. -methocarbamol 500mg q8hr -bengay PRN #Constipation Patient has not had BM in 3 days. Likely contributing to agitation. Will schedule bowel meds -pericolace daily IV access: none Tubes/Drains: none DVT PPX: daily lovenox GI PPX: tums 500mg BID, pantoprazole 40mg morning, dulcolax 10mg suppository PRN Anticipated Disposition: CM working on possible outpatient rehab Goals of Care: FULL CODE Team Pager( Coverage 27/01): #[phone] PCP: NAKIA Cifuentes [phone] Bonnie Velásquez 10/24/2017 Pager [phone] Plan of Care - Lenore Yates RN - 10/24/2017 1:27 AM EDT Problem: Patient Care Overview Goal: Plan of Care Review Outcome: Ongoing (Interventions Implemented as Appropriate) 10/24/17 0125 Coping/Psychosocial Plan Of Care Reviewed With patient Plan of Care Review Progress no change OUTCOME EVALUATION NOTE: OUTCOME SUMMARY: Pt sleeping between care this shift. Pt was very agitated at beginning of shift, yelling out and restless. PRN ativan given w/ positive effect. Pt also c/o pain in L knee/hip area, appeared to be having a spasm so prn medication given w/ good effect, see MAR. Incontinence care provided as needed. Tolerating PO intake well. Strict I/O followed. Will continue to monitor. ? PLAN MOVING FORWARD: Mobilize D/C planning ? INDIVIDUALIZED FALL PREVENTION INTERVENTIONS: ? Patient-specific fall risk factors per assessment: [current deficits]:? Hospital environment Recent surgery Meds ? Assistance [level of assistance required for transfers and ambulation]:? 2 assist w/ walker ? Supervision [direct monitoring required during toileting and ADLs]:? Hands on ? Surveillance [continuous indirect monitoring]:? Caregiver at bedside Call morris Purposeful rounding ? Patient-specific fall prevention interventions for sensory deficits provided, if applicable:?[X]N/A ? [facility] GOAL OUTCOME EVALUATION: * Med Student Progress Note - Bonnie Velásquez - 10/23/2017 7:32 AM EDT Hospital Medicine Attending Daily Progress Note Admit Date: 09/02/2017 Hospital Day 51 days Active Hospital Problems Diagnosis ??? S/P ORIF left acetabulum fracture 09/04/2017 Dr. Lance ??? Postoperative anemia due to acute blood loss ??? Diabetes insipidus ??? Adrenal insufficiency ??? Panhypopituitarism ??? Seizure disorder ??? Hypothyroidism Resolved Hospital Problems Diagnosis Date Resolved No resolved problems to display. PMH Active Non-Hospital Problems Diagnosis ??? Insomnia ??? Blind ??? CVA (cerebral vascular accident) ??? Urinary incontinence Inpatient Medications: Scheduled ??? sodium chloride 0.9 % 5 mL Intravenous Q12H ??? melatonin 9 mg Oral Nightly ??? testosterone 5 g Transdermal Nightly ??? acetaminophen 1,000 mg Oral Q8H ??? HYDROmorphone 6 mg Oral Nightly ??? desmopressin 0.05 mg Oral 3 times per day ??? methyl salicylate-menthol Topical (Top) BID ??? calcium carbonate 500 mg Oral BID ??? cholecalciferol (Vitamin D3) 1,000 Units Oral Daily ??? hydrocortisone 20 mg Oral QAM ??? hydrocortisone 10 mg Oral Daily at Noon ??? hydrocortisone 10 mg Oral Q24H ??? enoxaparin 40 mg Subcutaneous Nightly ??? levothyroxine 150 mcg Oral QAM ??? pantoprazole 40 mg Oral QAM AC ??? QUEtiapine 250 mg Oral Nightly ??? traZODone 50 mg Oral Nightly ??? zonisamide 200 mg Oral Nightly Continuous infusions: PRN: sodium chloride 0.9 %, lidocaine, HYDROmorphone, bisacodyl, LORazepam, haloperidol, polyethylene glycol (MIRALAX)oral powder, senna-docusate, naphazoline-pheniramine Interval History: Worked with PT yesterday, some pain, received PRN dilaudid Slept well overnight. No events. Feels well, ate breakfast this morning. Denies any pain. Caregiver at bedside, no concerns. Physical Exam Vitals Range last 24 hrs Temperature Temp: [35.9 ??C (96.6 ??F)-36.8 ??C (98.2 ??F)] Heart Rate Heart Rate: -- Blood Pressure BP: (124-157)/(93-102) Respiratory Rate Resp: [17-18] SpO2 SpO2: [95 %-97 %] General: pleasant young man, non-verbal, in no acute distress, awake, alert and interactive HEENT: non-icteric sclera, mild conjunctival pallor, no LAD. Heart: RRR, no m/r/g Lungs: CTAB, no wheezes, crackles Abd: non-tender, non-distended, +BS Ext: warm and well-perfused, no edema or cyanosis Skin: no rashes or lesions, L hip scar 2/2 hip fracture repair Intake/Output Summary (Last 24 hours) at 10/23/17 0732 Last data filed at 10/22/17 0754 Gross per 24 hour Intake 60 ml Output 0 ml Net 60 ml LABS: Last 3 Lytes Recent Labs 10/22/17 0502 10/21/17 0403 10/19/17 0955 NA 141 134* 141 K 4.0 4.3 3.8 CL 103 95* 101 CO2 22 23 23 BUN 11 16 16 CREATININE 0.74* 0.91 0.98 Assessment/Plan: #Panhypopituitarism with central DI, adrenal insufficiency on chronic steroids, hypothyroidism, hypogonadism BP and Na stable on home DDAVP. -appreciate endocrine recs -DDAVP 0.05mg TID (hold parameters: contact MD and can consider one time hold for Na <135) -BMP q2days -home hydrocortisone 20mg morning, 10mg non, 10mg nightly -home levothyroxine 150mcg daily -on pharmacy equivalent testosterone replacement -encourage good PO intake, fluid oz goal 110 #Left hip fracture s/p repair 09/04 with orthopedics Patient tolerating stand pivot to wheelchair, but increased weakness from before. Reasonable to have PT come work with him again. -vit D3 1000 units daily -encourage ambulation #Cracked Tooth No evidence of infection, will continue to follow with serial exams. #Agitation #Sleep Wake Disturbance Pain 2/2 hip fracture likely contributing significantly to agitation. Improvement in agitation withearlier night meds and inc melatonin. -acetaminophen 1g q8hr -dilaudid 6mg nightly -dilaudid 2mg PRN -haldol 2mg q6hr PRN -ativan 0.5mg BID PRN -melatonin 9 mg nightly -encourage waking during day, with windows open, going in wheelchair for walks #Seizure Disorder Stable. -home zonesamide 200 qhs #Muscle Cramps Patient reported to be having muscle cramps. Will try low dose methacarbamol -methocarbamol 500mg q6hr PRN IV access: none Tubes/Drains: none DVT PPX: daily lovenox GI PPX: tums 500mg BID, pantoprazole 40mg morning, dulcolax 10mg suppository PRN Anticipated Disposition: CM working on possible outpatient rehab Goals of Care: FULL CODE Team Pager( Coverage 27/01): #[phone] PCP: NAKIA Cifuentes [phone] Bonnie Velásquez 10/23/2017 Pager [phone] * Plan of Care - Lenore Yates RN - 10/23/2017 1:53 AM EDT Problem: Patient Care Overview Goal: Plan of Care Review Outcome: Ongoing (Interventions Implemented as Appropriate) 10/23/17 0150 Coping/Psychosocial Plan Of Care Reviewed With patient Plan of Care Review Progress no change OUTCOME EVALUATION NOTE: OUTCOME SUMMARY: Pt sleeping between care this shift. Pt was very agitated at beginning of shift, yelling out and restless. When asked if he had pain pt answered no and when asked what was wrong pt responded I don't know. PRN ativan and haldol given w/ positive effect. Incontinence care provided as needed. Pt denies pain throughout shift. Tolerating PO intake well. Strict I/O followed. Will continue to monitor. ?? PLAN MOVING FORWARD: Mobilize D/C planning ?? INDIVIDUALIZED FALL PREVENTION INTERVENTIONS: ?? Patient-specific fall risk factors per assessment: [current deficits]: Hospital environment Recent surgery Meds ?? Assistance [level of assistance required for transfers and ambulation]: 2 assist w/ walker ?? Supervision [direct monitoring required during toileting and ADLs]: Hands on ?? Surveillance [continuous indirect monitoring]: Caregiver at bedside Call morris Purposeful rounding ?? Patient-specific fall prevention interventions for sensory deficits provided, if applicable: [X] N/A ? [facility] GOAL OUTCOME EVALUATION: * Plan of Care - Skyla Rutherford RN - 10/22/2017 2:20 PM EDT Problem: Fracture Orthopaedic (Adult) Intervention: Prevent/Manage Fracture Bleeding OUTCOME EVALUATION NOTE: OUTCOME SUMMARY: Pt worked with therapy today. Up in w/c for short while. Incontinent of urine. Facial grimacing andyelling out this AM and when asked if in pain pt responded with yes. Medicated with dilaudid 4mg powith good effect. ambulance attendant in room with patient this shift. 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, cognitively impaired,immobility Assistance [level of assistance required for transfers and ambulation]: Dependent Supervision [direct monitoring required during toileting and ADLs]: Dependent Surveillance [continuous indirect monitoring]: Jeet, call morris in reach, purposeful rounding, environmental health and safety leader Patient-specific fall prevention interventions for sensory deficits provided, if applicable: Yes [facility] GOAL OUTCOME EVALUATION: * Plan of Care - Cedric Louis EmeraldROMEL - 10/22/2017 11:10 AM EDT Physical Therapy Treatment Treatment Number PT: 7 Pertinent History of Current Problem: Pt is a 27 yo man with a history of resection of pituitary tumor, intraoperative hemorrhage and CVA, cognitive impairment, cortical blindness, partial L sided paralysis, seizure disorder, and panhypopituitarism (with DI, adrenal insufficiency, hypothyroidism, hy pogonadism) here with a left acetabular fracture that occurred in the setting of a possible seizure. Precautions/Restrictions: fall Precautions Comments: L side weaker than R at baseline. Blind. Assessment: Pt seen for functional mobility, strength, endurance and pt education. Able to perform a few transfers with a FWW, pt tends to sit early and pivot, cues provided, pt does not always follow. In the // bars pt with improved ability to transfer and ambulate while maintaining weight bearing, slight agitation at one point where pt was attempting to pinch but was able to be redirected. Propels w/c moderately well with cues, due to decreased vision, unable to navigate around objects. Please see the flow sheet below for patient details and mobility. Pt would benefit from ongoing physical therapy interventions. Staff Mobility Recommendations: Stand pivot transfer 1-2 assist Anticipated Discharge Disposition: half-way facility (could go to handicap accesible nursing home with assistance) LOUIS DORAN PTA Pager: [phone] Inpatient Physical Therapy 10/22/17 1115 Rehab Evaluation Document Type therapy note (daily note) Total Evaluation Minutes, Physical Therapy 30 (TE-F x 2) Patient Effort good Symptoms Noted During/After Treatment none General Information Patient/Family/Caregiver Comments/Observations Pt agreeable and followed direction well throughout session. Pertinent History of Current Problem Pt is a 27 yo man with a history of resection of pituitary tumor, intraoperative hemorrhage and CVA, cognitive impairment, cortical blindness, partial L sided paralysis, seizure disorder, and panhypopituitarism (with DI, adrenal insufficiency, hypothyroidism, hyp ogonadism) here with a left acetabular fracture that occurred in the setting of a possible seizure. Precautions/Restrictions fall Precautions Comments L side weaker than R at baseline. Blind. Limitations/Impairments safety/cognitive Treatment Number PT 7 Living Environment Living Environment Comment Pt lives in a nursing home with 3 other roomates. The state fire marshal of the nursing home reports that they have a caregiver there 27/01. The bedrooms and shower are upstairs. The bathroom has grab bars and they can obtain a seat if necessary. Functional Level Prior Prior Functional Level Comment Prior to admission pt was fully ambulatory and climbing stairs. At baseline he yells out and moans. he has a decreased attention span and will remember things like TV shows that were prior to age 14. He enjoys country music. Carrot sticks and celery sticks are a good distraction from patient. At the nursing home he tends to wear jeans with no shirt as he tries to rip them off. He is able to communicate intermittently with verbal words. the caregivers help shower anddress him daily. Pain Scale/Rating Pain Assessment Scale Word (verbal rating pain scale) Pain Level (pt reported no pain when asked) Bed Mobility Assessment/Treatment [id number]-[id number] [place] (Bed Mobility) minimum assist (75% patient effort) Comment (Bed Mobility) Able to sit edge of bed with supervision Transfer Assessment/Treatment Bed-Chair [place] (Transfers) maximum assist (25% patient effort) Shc-Yyyin-Woo Assistive Device (Transfers) rolling walker [place] (Sit-Stand Transfers) contact guard assist;minimum assist (75% patient effort) [place] (Stand-Sit Transfers) contact guard assist Eab-Juqgm-Xyo Assistive Device (Transfers) (// bars) [place] (Toilet Transfers) maximum assist (25% patient effort) Assistive Device (Toilet Transfers) rolling walker;bedside commode Maintain Weight Bearing Status (Transfers) cues to maintain weight bearing status Safety Issues (Transfers) balance decreased during turns;step length decreased;weight-shifting ability decreased Impairments (Transfers) balance impaired;coordination impaired;ROM (range of motion) decreased;strength decreased Comment (Transfers) Cues provided during transfers, pt maintained weight bearing status with cues, slightly unsteady, sits early at times Gait Assessment/Treatment [place] (Gait) minimum assist (75% patient effort) Assistive Device (Gait) (// bars) Distance in Feet (Gait) 10 ft x 2 Gait Pattern Analysis swing-to gait Maintain Weight Bearing Status (Gait) cues to maintain weight bearing status Safety Issues (Gait) step length decreased;weight-shifting ability decreased Impairments (Gait) ROM (range of motion) decreased;strength decreased Comment (Gait) steady, maintained weight bearing restriction with cues Wheelchair Training/Management Propulsion Training (Wheelchair) forward propulsion;turning wheelchair Propulsion Training Comment (Wheelchair) forward/backward and turning, guided pt to avoid running into objects Distance Propelled in Feet (Wheelchair) 70 ft Training Comment (Wheelchair) able to use UE's and R LE Safety Comment (Wheelchair) requires assist to avoid running into objects Plan of Care Review Plan Of Care Reviewed With patient;caregiver Bed Mobility Goal Bed Mobility Goal, Date Established 09/09/17 Bed Mobility Goal, Time to Achieve by discharge Bed Mobility Goal, Activity Type all bed mobility activities Bed Mobility Goal, [place] Level moderate assist (50% patient effort) Bed Mobility Goal, Outcome Achieved goal ongoing Gait Training Goal Gait Training Goal, Date Established 09/09/17 Gait Training Goal, Time to Achieve by discharge Gait Training Goal, [place] Level minimum assist (75% patient effort) Gait Training Goal, Assist Device walker, rolling Gait Training Goal, Distance to Achieve 15 ft Gait Training Goal, Outcome goal ongoing Transfer Training Goal Transfer Training Goal, Date Established 09/09/17 Transfer Training Goal, Time to Achieve by discharge Transfer Training Goal, Activity Type bge-rg-zyoiu/siyrj-gn-ohr;fqo-tk-fjgma/cbdws-eq-czi Transfer Train Goal, [place] Level minimum assist (75% patient effort) Transfer Training Goal, Assist Device walker, rolling Transfer Training Goal, Outcome goal ongoing Physical Therapy Goal PT Goal, Date Established 09/09/17 PT Goal, Time to Achieve by discharge PT Goal, Activity Type Pt will propel self in w/c household distances PT Goal, [place] Level set up required;supervision required PT Goal, Outcome goal ongoing Clinical Impression Therapy Frequency 2-4 times/wk Anticipated Discharge Disposition half-way facility (could go to handicap accesible nursing home with assistance) * Med Student Progress Note - Bonnie Velásquez 10/22/2017 7:21 AM EDT Hospital Medicine Attending Daily Progress Note Admit Date: 09/02/2017 Hospital Day 50 days Active Hospital Problems Diagnosis ??? S/P ORIF left acetabulum fracture 09/04/2017 Dr. Lance ??? Postoperative anemia due to acute blood loss ??? Diabetes insipidus ??? Adrenal insufficiency ??? Panhypopituitarism ??? Seizure disorder ??? Hypothyroidism Resolved Hospital Problems Diagnosis Date Resolved No resolved problems to display. PMH Active Non-Hospital Problems Diagnosis ??? Insomnia ??? Blind ??? CVA (cerebral vascular accident) ??? Urinary incontinence Inpatient Medications: Scheduled ??? sodium chloride 0.9 % 5 mL Intravenous Q12H ??? melatonin 9 mg Oral Nightly ??? testosterone 5 g Transdermal Nightly ??? acetaminophen 1,000 mg Oral Q8H ??? HYDROmorphone 6 mg Oral Nightly ??? desmopressin 0.05 mg Oral 3 times per day ??? methyl salicylate-menthol Topical (Top) BID ??? calcium carbonate 500 mg Oral BID ??? cholecalciferol (Vitamin D3) 1,000 Units Oral Daily ??? hydrocortisone 20 mg Oral QAM ??? hydrocortisone 10 mg Oral Daily at Noon ??? hydrocortisone 10 mg Oral Q24H ??? enoxaparin 40 mg Subcutaneous Nightly ??? levothyroxine 150 mcg Oral QAM ??? pantoprazole 40 mg Oral QAM AC ??? QUEtiapine 250 mg Oral Nightly ??? traZODone 50 mg Oral Nightly ??? zonisamide 200 mg Oral Nightly Continuous infusions: PRN: sodium chloride 0.9 %, lidocaine, HYDROmorphone, bisacodyl, LORazepam, haloperidol, polyethylene glycol (MIRALAX)oral powder, senna-docusate, naphazoline-pheniramine Interval History: Had BMx1 yesterday No prolonged sleep, but non-agitated, rested between care. Denies pain, SOB, lightheadedness, n/v/d. Caregiver at bedside and reports no concerns. Physical Exam Vitals Range last 24 hrs Temperature Temp: [36.1 ??C (97 ??F)-36.3 ??C (97.3 ??F)] Heart Rate Heart Rate: -- Blood Pressure BP: (129-148)/(83-96) Respiratory Rate Resp: [16] SpO2 SpO2: [91 %-98 %] General: pleasant young man, non-verbal, in no acute distress, awake, alert and interactive HEENT: non-icteric sclera, mild conjunctival pallor, no LAD. Does not cooperate for dental exam Heart: RRR, no m/r/g Lungs: CTAB, no wheezes, crackles Abd: non-tender, non-distended, +BS Ext: warm and well-perfused, no edema or cyanosis Skin: no rashes or lesions, L hip scar 2/2 hip fracture repair Intake/Output Summary (Last 24 hours) at 10/22/17 0721 Last data filed at 10/21/17 1900 Gross per 24 hour Intake 1220 ml Output 550 ml Net 670 ml LABS: Last 3 Lytes Recent Labs 10/22/17 0502 10/21/17 0403 10/19/17 0955 NA 141 134* 141 K 4.0 4.3 3.8 CL 103 95* 101 CO2 22 23 23 BUN 11 16 16 CREATININE 0.74* 0.91 0.98 Assessment/Plan: #Panhypopituitarism with central DI, adrenal insufficiency on chronic steroids, hypothyroidism, hypogonadism BP stable, hypoNa resolved, Na today 141 after holding one dose DDAVP yesterday. Can space out BMP checks to every other day until stable again. -appreciate endocrine recs -DDAVP 0.05mg TID (hold parameters: contact MD and can consider one time hold for Na <135) -BMP q2days -home hydrocortisone 20mg morning, 10mg non, 10mg nightly -home levothyroxine 150mcg daily -on pharmacy equivalent testosterone replacement -encourage good PO intake, fluid oz goal 110 #Left hip fracture s/p repair 09/04 with orthopedics Patient tolerating stand pivot to wheelchair, but increased weakness from before. Reasonable to have PT come work with him again. -vit D3 1000 units daily -encourage ambulation -PT session today #Cracked Tooth No evidence of infection, will continue to follow with serial exams. #Agitation #Sleep Wake Disturbance Pain 2/2 hip fracture likely contributing significantly to agitation. Improvement in agitation withearlier night meds and inc melatonin. -acetaminophen 1g q8hr -dilaudid 6mg nightly -dilaudid 2mg PRN -haldol 2mg q6hr PRN -ativan 0.5mg BID PRN -melatonin 9 mg nightly -encourage waking during day, with windows open, going in wheelchair for walks #Seizure Disorder Stable. -home zonesamide 200 qhs IV access: none Tubes/Drains: none DVT PPX: daily lovenox GI PPX: tums 500mg BID, pantoprazole 40mg morning, dulcolax 10mg suppository PRN Anticipated Disposition: CM working on possible outpatient rehab Goals of Care: FULL CODE Team Pager(MD Coverage 27/01): #[phone] PCP: NAKIA Cifuentes [phone] Bonnie Velásquez 10/22/2017 Pager [phone] * Plan of Care - Elsy Mei RN - 10/22/2017 3:59 AM EDT Problem: Patient Care Overview Goal: Plan of Care Review Outcome: Ongoing (Interventions Implemented as Appropriate) 10/21/17 1524 10/21/17 2105 Coping/Psychosocial Plan Of Care Reviewed With -- patient;other (see comments) (sitter) Plan of Care Review Progress no change -- OUTCOME EVALUATION NOTE: OUTCOME SUMMARY: Patient alert. No events overnight; rested between care but did not sleep for any extended period of time; denies pain. Pt had a large BM at start of shift and seemed much more comfortable; incontinence care provided. Sitter remains at bedside. Will continue to monitor. PLAN MOVING FORWARD: Continue to monitor pain, encourage ambulation, PT/OT, discharge planning. INDIVIDUALIZED FALL PREVENTION INTERVENTIONS: Patient-specific fall risk factors per assessment: [current deficits]: Narcotic medications, surgery, hospital environment, cognitively impaired, generalized weakness, blind. Assistance [level of assistance required for transfers and ambulation]: 2-assist Supervision [direct monitoring required during toileting and ADLs]: Hands on. Surveillance [continuous indirect monitoring]: Masimo, purposeful rounding, NKE, sitter Patient-specific fall prevention interventions for sensory deficits provided, if applicable: CPG GOAL OUTCOME EVALUATION: Goal: Individualization & Mutuality Outcome: Ongoing (Interventions Implemented as Appropriate) 10/17/17 1745 10/19/17 0608 10/22/17 0354 Individualization Patient Specific Preferences -- cluster care to promote rest -- Patient Specific Goals -- limit interuptions to pt's rest periods, maintain safety plan -- Patient Specific Interventions -- -- cluster care, sitter at bedside Mutuality/Individual Preferences What Anxieties, Fears or Concerns Do You Have About Your Health or Care? ISHAAN -- -- What Questions Do You Have About Your Health or Care? ISHAAN -- -- What Information Would Help Us Give You More Personalized Care? ISHAAN -- -- Goal: Fall Prevention-Safe Patient Handling Outcome: Ongoing (Interventions Implemented as Appropriate) 10/21/17 0810/21/172104 Restraint Interventions Safety Promotion/Fall Prevention -- activity supervised;fall prevention program maintained;nonskid shoes/slippers when out of bed;safety round/check completed Activity Activity Type -- activity adjusted per tolerance Activity Assistance Provided assistance, 2 people -- Assistive Device Utilized front-wheel walker -- Positioning Body Position -- independent Daily Care Interventions Self-Care Promotion -- independence encouraged;BADL personal objects within reach [place] Fall Risk History of Falling -- 25 Secondary Diagnosis -- 15 Ambulatory Aids -- 0 Intravenous Therapy/Heparin/Saline Lock -- 0 Gait/Transferring -- 10 Mental Status -- 15 Score -- 65 OTHER [place] Fall Risk -- High Goal: Infection Control Outcome: Ongoing (Interventions Implemented as Appropriate) 10/21/172104 Coping Strategies Supportive Measures active listening utilized;goal setting facilitated;positive reinforcement provided;verbalization of feelings encouraged Safety Interventions Isolation Precautions standard precautions maintained Infection Prevention environmental surveillance performed;rest/sleep promoted;single patient room provided Goal: Discharge Needs Assessment Outcome: Ongoing (Interventions Implemented as Appropriate) 09/08/17 0403 09/18/17 1250 10/03/17 1654 Discharge Needs Assessment Concerns To Be Addressed -- -- -- Readmission Within The Last 30 Days -- -- -- Equipment Needed After Discharge -- other (see comments) (TBD) -- Discharge Facility/Level Of Care Needs -- -- adult foster care/nursing home Current Discharge Risk -- cognitively impaired;physical impairment -- Discharge Disposition -- still a patient -- Current Health Outpatient/Agency/Support Group Needs -- nursing home (specify) -- Anticipated Changes Related to Illness none -- -- Living Environment Transportation Available -- car (caregiver from nursing home) -- Activity/Self Care Review of Systems Equipment Currently Used at Home -- none -- 10/14/17 0631 Discharge Needs Assessment Concerns To Be Addressed no discharge needs identified;denies needs/concerns at this time Readmission Within The Last 30 Days no previous admission in last 30 days Equipment Needed After Discharge -- Discharge Facility/Level Of Care Needs -- Current Discharge Risk -- Discharge Disposition -- Current Health Outpatient/Agency/Support Group Needs -- Anticipated Changes Related to Illness -- Living Environment Transportation Available -- Activity/Self Care Review of Systems Equipment Currently Used at Home -- Goal: Interdisciplinary Rounds/Family Conf Outcome: Ongoing (Interventions Implemented as Appropriate) 10/22/17 0354 Interdisciplinary Rounds/Family Conf Participants nursing;patient Problem: Skin Integrity Impairment, Risk/Actual (Adult) Goal: Skin Integrity/Wound Healing Patient will demonstrate the desired outcomes by discharge/transition of care. Outcome: Ongoing (Interventions Implemented as Appropriate) 10/21/17 1523 Skin Integrity Impairment, Risk/Actual (Adult) Skin Integrity/Wound Healing making progress toward outcome * Plan of Care - Ren Walters OTA - 10/21/2017 3:40 PM EDT Occupational Therapy Treatment Note Pertinent History of Current Problem: (P) Pt is a 27 yo man with a history of resection of pituitary tumor, intraoperative hemorrhage and CVA, cognitive impairment, cortical blindness, partial L sided paralysis, seizure disorder, and panhypopituitarism (with DI, adrenal insufficiency, hypothyroidism, hypogonadism) here with a left acetabular fracture that occurred in the setting of a possible seizure. Precautions/Restrictions: (P) fall Precautions Comments: (P) L side weaker than R at baseline. Blind. Assessment: Pt seen for skilled OT interventions. Session focussed on sitting EOB activities.. Pt was difficult to initially arouse and participate with therapy. Pt became more agitated and was transferred back to supine in beg. Discussed with pt the expectations for appropriate behavior for therapy. Next session will attempt to work on commode transfer and toileting goals. Pt will benefit from ongoing therapeutic interventions to achieve pt's and therapy goals. Please refer to associated flowsheet data listed below for treatment session details. Staff Recommendations: Encourage OOB activity and participation in all self care tasks Anticipated Discharge Disposition: (P) half-way facility Pager: [phone] ZULMA Vargas 10/21/2017 Occupational Therapy Rehabilitation Department 10/21/17 1500 Rehab Evaluation Document Type therapy note (daily note) Total Evaluation Minutes, Occupational Therapy 15 Patient Effort poor Symptoms Noted During/After Treatment fatigue General Information Patient Profile Review yes General Observations of Patient pt laying in bed Pertinent History of Current Problem Pt is a 27 yo man with a history of resection of pituitary tumor, intraoperative hemorrhage and CVA, cognitive impairment, cortical blindness, partial L sided paralysis, seizure disorder, and panhypopituitarism (with DI, adrenal insufficiency, hypothyroidism, hyp ogonadism) here with a left acetabular fracture that occurred in the setting of a possible seizure. Hearing Precautions/Limitations WFL Precautions/Restrictions fall Precautions Comments L side weaker than R at baseline. Blind. Limitations/Impairments safety/cognitive Treatment Number OT 9 Cognitive Assessment Interventions Behavior/Mood Observations (Cognitive) lethargic;excitable Orientation Status (Cognitive) unable/difficult to assess Attention (Cognitive) unable/difficult to assess Follows Commands/Answers Questions (Cognitive) 25% of the time Personal Safety (Cognitive) severe impairment Pain Scale/Rating Pain Assessment Scale Numbers (Numeric Rating Pain Scale) Pain Level 0 Bed Mobility Assessment/Treatment Wmcexi-xs-[id number] [place] (Bed Mobility) minimum assist (75% patient effort);verbal cues required Dbi-hw-[id number] [place] (Bed Mobility) minimum assist (75% patient effort);verbal cues required Comment (Bed Mobility) difficult arousing pt Clinical Impression Criteria for Skilled Therapeutic Interventions Met yes;treatment indicated Rehab Potential fair, will monitor progress closely Therapy Frequency 2-4 times/wk Anticipated Discharge Disposition half-way facility * Plan of Care - Lenore Yates RN - 10/21/2017 3:29 PM EDT Problem: Patient Care Overview Goal: Plan of Care Review Outcome: Ongoing (Interventions Implemented as Appropriate) 10/21/17 6374 Coping/Psychosocial Plan Of Care Reviewed With patient;caregiver Plan of Care Review Progress no change OUTCOME EVALUATION NOTE: OUTCOME SUMMARY: Pt sleeping between care this shift, had to keep waking pt up for medications and did not feel comfortable getting pt in wheelchair if he was going to fall asleep. Pt used urinal at times when offered, incontinent care provided as needed. Pt denies pain throughout shift. Tolerating PO intake well. Strict I/O followed. Will continue to monitor. PLAN MOVING FORWARD: Mobilize D/C planning INDIVIDUALIZED FALL PREVENTION INTERVENTIONS: Patient-specific fall risk factors per assessment: [current deficits]: Hospital environment Recent surgery Meds Assistance [level of assistance required for transfers and ambulation]: 2 assist w/ walker Supervision [direct monitoring required during toileting and ADLs]: Hands on Surveillance [continuous indirect monitoring]: Caregiver at bedside Call morris Purposeful rounding Patient-specific fall prevention interventions for sensory deficits provided, if applicable: [X] N/A CPG GOAL OUTCOME EVALUATION: * Consult Note - Kris Gilbert, SALAS - 10/21/2017 2:32 PM EDT Dental consult 10/21/17 Asked today by the patients attending physician Dr Donis to see Miguel Angel Mason, a 27 yo male with history of Pituitary tumor, CVA, seizure disorder, broken hip and broken tooth. Reviewed chart, images and visited with patient this afternoon to evaluate his dental condition. I found the patient to be relatively calm, eating lunch and cooperative. He responded deliberately to questions and I assume that his responses were accurate. (conferred with his aide and nurse as well) He appears to be in no acute pain or discomfort. He denies experiencing any of this as well-- either spontaneously or during function. No signs of discomfort were provoked upon examination via palpation of the face, teeth, bones of the jaws. The tongue and floor of the mouth were not palpated due to a history of biting caregivers. There was no visual evidence of redness, inflammation (externally or intraorally), lymphadenopathy visually or upon bimanual palpation. Percussion of the teeth caused no reaction of discomfort. Therewas no dental mobility noted. Tooth #21 the lower left first premolar was found to be broken off at the gingiva with some minor reactive gingival hypertrophy nearby. This tooth was found to be not tender to percussion. Although there are some potentially chronic conditions of concern (decay and other disease processes not easily visualized via CT) There was no sign of acute disease upon examination. Any intervention for reasons related to the healing of the patients prosthetic joint would normallybe based upon the presence of gross or acute disease which does not appear obvious upon examinationtoday. This would also be dependent upon the availability of oral surgical services for extraction under general anesthesia if they deemed these were warranted. I remain available to consult regarding this case. Kris Gilbert DMD [phone] * Med Student Progress Note - Bonnie Velásquez - 10/21/2017 7:54 AM EDT Hospital Medicine Attending Daily Progress Note Admit Date: 09/02/2017 Hospital Day 49 days Active Hospital Problems Diagnosis ??? S/P ORIF left acetabulum fracture 09/04/2017 Dr. Lance ??? Postoperative anemia due to acute blood loss ??? Diabetes insipidus ??? Adrenal insufficiency ??? Panhypopituitarism ??? Seizure disorder ??? Hypothyroidism Resolved Hospital Problems Diagnosis Date Resolved No resolved problems to display. [facility] Active Non-Hospital Problems Diagnosis ??? Insomnia ??? Blind ??? CVA (cerebral vascular accident) ??? Urinary incontinence Inpatient Medications: Scheduled ??? sodium chloride 0.9 % 5 mL Intravenous Q12H ??? melatonin 9 mg Oral Nightly ??? testosterone 5 g Transdermal Nightly ??? acetaminophen 1,000 mg Oral Q8H ??? HYDROmorphone 6 mg Oral Nightly ??? desmopressin 0.05 mg Oral 3 times per day ??? methyl salicylate-menthol Topical (Top) BID ??? calcium carbonate 500 mg Oral BID ??? cholecalciferol (Vitamin D3) 1,000 Units Oral Daily ??? hydrocortisone 20 mg Oral QAM ??? hydrocortisone 10 mg Oral Daily at Noon ??? hydrocortisone 10 mg Oral Q24H ??? enoxaparin 40 mg Subcutaneous Nightly ??? levothyroxine 150 mcg Oral QAM ??? pantoprazole 40 mg Oral QAM AC ??? QUEtiapine 250 mg Oral Nightly ??? traZODone 50 mg Oral Nightly ??? zonisamide 200 mg Oral Nightly Continuous infusions: PRN: sodium chloride 0.9 %, lidocaine, HYDROmorphone, bisacodyl, LORazepam, haloperidol, polyethylene glycol (MIRALAX)oral powder, senna-docusate, naphazoline-pheniramine Interval History: Had CT done yesterday to evaluate broken tooth with anesthesia Received miralax Had some agitation last night, requiring PRN ativan Na 134 this morning Denies pain, SOB, lightheadedness, n/v/d. Caregiver at bedside and reports no concerns. Physical Exam Vitals Range last 24 hrs Temperature Temp: [36.1 ??C (97 ??F)-36.8 ??C (98.2 ??F)] Heart Rate Heart Rate: -- Blood Pressure BP: (118-129)/(79-106) Respiratory Rate Resp: [16] SpO2 SpO2: [95 %-98 %] General: pleasant young man, non-verbal, in no acute distress, under blankets sleeping, but arousable HEENT: non-icteric sclera, mild conjunctival pallor, no LAD. Does not cooperate for dental exam Heart: RRR, no m/r/g Lungs: CTAB, no wheezes, crackles Abd: non-tender, +BS Ext: warm and well-perfused, no edema or cyanosis Skin: no rashes or lesions, L hip scar 2/2 hip fracture repair Intake/Output Summary (Last 24 hours) at 10/21/17 1144 Last data filed at 10/21/17 0624 Gross per 24 hour Intake 1307 ml Output 450 ml Net 857 ml LABS: Last 3 Lytes Recent Labs 10/21/17 0403 10/19/17 0955 10/17/17 1827 NA 134* 141 142 K 4.3 3.8 Not Perf CL 95* 101 102 CO2 23 23 22 BUN 16 16 15 CREATININE 0.91 0.98 0.86 Assessment/Plan: #Panhypopituitarism with central DI, adrenal insufficiency on chronic steroids, hypothyroidism, hypogonadism #Hyponatremia BP stable, but Na low this AM. Likely secondary to inc fluid intake on 10/19. Held AM DDAVP, will resume this PM doses recheck BMP tomorrow to establish stable Na. -appreciate endocrine recs -DDAVP 0.05mg TID (hold parameters: contact MD and can consider one time hold for Na <135); willresume the PM doses -resume daily BMP -home hydrocortisone 20mg morning, 10mg non, 10mg nightly -home levothyroxine 150mcg daily -on pharmacy equivalent testosterone replacement -encourage good PO intake, fluid oz goal 110 #Left hip fracture s/p repair 09/04 with orthopedics Patient tolerating stand pivot to wheelchair, but requiring more assistance than before,likely somedeconditioning from extended hospital but also fatigue due to sleep-wake dysfunction. -vit D3 1000 units daily -encourage ambulation #Cracked Tooth Awaiting dental input. #Agitation #Sleep Wake Disturbance Pain 08/08 hip fracture likely contributing significantly to agitation. Improvement in agitation withearlier night meds and inc melatonin. -acetaminophen 1g q8hr -dilaudid 6mg nightly -dilaudid 2mg PRN -haldol 2mg q6hr PRN -ativan 0.5mg BID PRN -melatonin 9 mg nightly -encourage waking during day, with windows open, going in wheelchair for walks #Seizure Disorder Stable. -home zonesamide 200 qhs #Constipation -miralax today IV access: none Tubes/Drains: none DVT PPX: daily lovenox GI PPX: tums 500mg BID, pantoprazole 40mg morning, dulcolax 10mg suppository PRN Anticipated Disposition: CM working on possible outpatient rehab Goals of Care: FULL CODE Team Pager(MD Coverage 27/01): #[phone] PCP: NAKIA Cifuentes [phone] Bonnie Velásquez 10/21/2017 Pager [phone] * Plan of Care - Elsy Mei RN - 10/21/2017 5:03 AM EDT Problem: Patient Care Overview Goal: Plan of Care Review Outcome: Ongoing (Interventions Implemented as Appropriate) 10/19/17 0608 10/21/17 0203 Coping/Psychosocial Plan Of Care Reviewed With -- patient Plan of Care Review Progress no change -- OUTCOME EVALUATION NOTE: OUTCOME SUMMARY: Patient alert; unable to assess orientation; VSs stable. Pt was calm and appropriate at beginning of shift; urinating in urinal when offered and saying please when making requests. Pt became increasingly more agitated as the shift progressed; trying to kick and bite staff and screaming out constantly. Pt denied pain. Scheduled and PRN Dilaudid, ativan, and Haldol were administered with less than adequate effect; notified. Pt incontinent for the remainder of the shift. Sitter at bedside. Will continue to monitor. PLAN MOVING FORWARD: Continue to monitor pain, work with PT/OT; mobilize, discharge planning. INDIVIDUALIZED FALL PREVENTION INTERVENTIONS: Patient-specific fall risk factors per assessment: [current deficits]: Narcotic medications, surgery, hospital environment, cognitively impaired, generalized weakness. Assistance [level of assistance required for transfers and ambulation]: Independent bed position; 2-person assist OOB Supervision [direct monitoring required during toileting and ADLs]: Hands on. Surveillance [continuous indirect monitoring]: Masimo, purposeful rounding, NKE, sitter at bedside. Patient-specific fall prevention interventions for sensory deficits provided, if applicable: CPG GOAL OUTCOME EVALUATION: Goal: Individualization & Mutuality Outcome: Ongoing (Interventions Implemented as Appropriate) 10/17/17 1745 10/19/17 0608 Individualization Patient Specific Preferences -- cluster care to promote rest Patient Specific Goals -- limit interuptions to pt's rest periods, maintain safety plan Patient Specific Interventions -- cluster care, radio off at night, sitter at bedside Mutuality/Individual Preferences What Anxieties, Fears or Concerns Do You Have About Your Health or Care? ISHAAN -- What Questions Do You Have About Your Health or Care? ISHAAN -- What Information Would Help Us Give You More Personalized Care? ISHAAN -- Goal: Fall Prevention-Safe Patient Handling Outcome: Ongoing (Interventions Implemented as Appropriate) 10/20/17 0900 10/20/17 2100 10/21/17 0000 Restraint Interventions Safety Promotion/Fall Prevention -- -- activity supervised;fall prevention program maintained Activity Activity Type -- bedrest with bathroom privileges -- Activity Assistance Provided -- assistance, 2 people -- Assistive Device Utilized front-wheel walker -- -- Positioning Body Position -- independent -- Daily Care Interventions Self-Care Promotion -- independence encouraged;BADL personal objects within reach -- [place] Fall Risk History of Falling -- 25 -- Secondary Diagnosis -- 15 -- Ambulatory Aids -- 0 -- Intravenous Therapy/Heparin/Saline Lock -- 0 -- Gait/Transferring -- 10 -- Mental Status -- 15 -- Score -- 65 -- OTHER [place] Fall Risk -- High -- Goal: Infection Control Outcome: Ongoing (Interventions Implemented as Appropriate) 10/20/17 2100 10/21/17 0000 Coping Strategies Supportive Measures active listening utilized;goal setting facilitated;positive reinforcement provided;verbalization of feelings encouraged -- Safety Interventions Isolation Precautions -- standard precautions maintained Infection Prevention -- environmental surveillance performed Goal: Discharge Needs Assessment Outcome: Ongoing (Interventions Implemented as Appropriate) 09/08/17 0403 09/18/17 1250 10/03/17 1654 Discharge Needs Assessment Concerns To Be Addressed -- -- -- Readmission Within The Last 30 Days -- -- -- Equipment Needed After Discharge -- other (see comments) (TBD) -- Discharge Facility/Level Of Care Needs -- -- adult foster care/nursing home Current Discharge Risk -- cognitively impaired;physical impairment -- Discharge Disposition -- still a patient -- Current Health Outpatient/Agency/Support Group Needs -- nursing home (specify) -- Anticipated Changes Related to Illness none -- -- Living Environment Transportation Available -- car (caregiver from nursing home) -- Activity/Self Care Review of Systems Equipment Currently Used at Home -- none -- 10/14/17 0631 Discharge Needs Assessment Concerns To Be Addressed no discharge needs identified;denies needs/concerns at this time Readmission Within The Last 30 Days no previous admission in last 30 days Equipment Needed After Discharge -- Discharge Facility/Level Of Care Needs -- Current Discharge Risk -- Discharge Disposition -- Current Health Outpatient/Agency/Support Group Needs -- Anticipated Changes Related to Illness -- Living Environment Transportation Available -- Activity/Self Care Review of Systems Equipment Currently Used at Home -- Goal: Interdisciplinary Rounds/Family Conf Outcome: Ongoing (Interventions Implemented as Appropriate) 10/21/17 0438 Interdisciplinary Rounds/Family Conf Participants nursing;physician;patient Problem: Skin Integrity Impairment, Risk/Actual (Adult) Goal: Skin Integrity/Wound Healing Patient will demonstrate the desired outcomes by discharge/transition of care. Outcome: Ongoing (Interventions Implemented as Appropriate) 10/19/17 0608 Skin Integrity Impairment, Risk/Actual (Adult) Skin Integrity/Wound Healing making progress toward outcome * Med Student Progress Note - Bonnie Velásquez - 10/20/2017 9:09 AM EDT Hospital Medicine Attending Daily Progress Note Admit Date: 09/02/2017 Hospital Day 48 days Active Hospital Problems Diagnosis ??? S/P ORIF left acetabulum fracture 09/04/2017 Dr. Lance ??? Postoperative anemia due to acute blood loss ??? Diabetes insipidus ??? Adrenal insufficiency ??? Panhypopituitarism ??? Seizure disorder ??? Hypothyroidism Resolved Hospital Problems Diagnosis Date Resolved No resolved problems to display. [facility] Active Non-Hospital Problems Diagnosis ??? Insomnia ??? Blind ??? CVA (cerebral vascular accident) ??? Urinary incontinence Inpatient Medications: Scheduled ??? sodium chloride 0.9 % 5 mL Intravenous Q12H ??? melatonin 9 mg Oral Nightly ??? testosterone 5 g Transdermal Nightly ??? acetaminophen 1,000 mg Oral Q8H ??? HYDROmorphone 6 mg Oral Nightly ??? desmopressin 0.05 mg Oral 3 times per day ??? methyl salicylate-menthol Topical (Top) BID ??? calcium carbonate 500 mg Oral BID ??? cholecalciferol (Vitamin D3) 1,000 Units Oral Daily ??? hydrocortisone 20 mg Oral QAM ??? hydrocortisone 10 mg Oral Daily at Noon ??? hydrocortisone 10 mg Oral Q24H ??? enoxaparin 40 mg Subcutaneous Nightly ??? levothyroxine 150 mcg Oral QAM ??? pantoprazole 40 mg Oral QAM AC ??? QUEtiapine 250 mg Oral Nightly ??? traZODone 50 mg Oral Nightly ??? zonisamide 200 mg Oral Nightly Continuous infusions: PRN: sodium chloride 0.9 %, lidocaine, HYDROmorphone, bisacodyl, LORazepam, haloperidol, polyethylene glycol (MIRALAX)oral powder, senna-docusate, naphazoline-pheniramine Interval History: Patient slept well, awaiting CT this morning. Anesthesia recs trying just IV versed to avoid stressdose steroids. Denies pain, SOB, lightheadedness, n/v/d. Caregiver at bedside and reports no concerns. Physical Exam Vitals Range last 24 hrs Temperature Temp: [36.4 ??C (97.5 ??F)-36.6 ??C (97.9 ??F)] Heart Rate Heart Rate: -- Blood Pressure BP: (124-159)/(91-144) Respiratory Rate Resp: [18] SpO2 SpO2: [90 %-95 %] General: pleasant young man, non-verbal, in no acute distress, under blankets sleeping. HEENT: non-icteric sclera, mild conjunctival pallor, no LAD. Does not cooperate for dental exam Heart: RRR, no m/r/g Lungs: CTAB, no wheezes, crackles Abd: more tense than prior days, non-tender, +BS Ext: warm and well-perfused, no edema or cyanosis Skin: no rashes or lesions, L hip scar 2/2 hip fracture repair Intake/Output Summary (Last 24 hours) at 10/20/17 0910 Last data filed at 10/20/17 0400 Gross per 24 hour Intake 3230 ml Output 325 ml Net 2905 ml LABS: Last 3 Lytes Recent Labs 10/19/17 0955 10/17/17 1827 10/16/17 1026 NA 141 142 141 K 3.8 Not Perf 4.0 CL 101 102 104 CO2 23 22 22 BUN 16 15 16 CREATININE 0.98 0.86 0.86 Assessment/Plan: #Panhypopituitarism with central DI, adrenal insufficiency on chronic steroids, hypothyroidism, hypogonadism BP stable, electrolytes stable, OK to continue holding daily BMPs. -appreciate endocrine recs -DDAVP 0.05mg TID (hold parameters: contact MD and can consider one time hold for Na <135) -home hydrocortisone 20mg morning, 10mg non, 10mg nightly -home levothyroxine 150mcg daily -on pharmacy equivalent testosterone replacement -encourage good PO intake, fluid oz goal 110 #Left hip fracture s/p repair 09/04 with orthopedics Patient tolerating stand pivot to wheelchair, but requiring more assistance than before,likely somedeconditioning from extended hospital but also fatigue due to sleep-wake dysfunction. -vit D3 1000 units daily -encourage ambulation #Cracked Tooth -CT head wo contrast with anesthesia today -awaiting maxillofacial surgery input #Agitation #Sleep Wake Disturbance Pain 2/2 hip fracture likely contributing significantly to agitation. Improvement in agitation withearlier night meds and inc melatonin. -acetaminophen 1g q8hr -dilaudid 6mg nightly -dilaudid 2mg PRN -haldol 2mg q6hr PRN -ativan 0.5mg BID PRN -melatonin 9 mg nightly -encourage waking during day, with windows open, going in wheelchair for walks #Seizure Disorder Stable. -home zonesamide 200 qhs #Constipation -miralax today IV access: none Tubes/Drains: none DVT PPX: daily lovenox GI PPX: tums 500mg BID, pantoprazole 40mg morning, dulcolax 10mg suppository PRN Anticipated Disposition: CM working on possible outpatient rehab Goals of Care: FULL CODE Team Pager(MD Coverage 27/01): #[phone] PCP: NAKIA Cifuentes [phone] Bonnie Velásquez 10/20/2017 Pager [phone] * Plan of Care - Dinorah Tate RN - 10/20/2017 2:49 AM EDT Problem: Patient Care Overview Goal: Plan of Care Review Outcome: Ongoing (Interventions Implemented as Appropriate) 10/19/17 2100 Coping/Psychosocial Plan Of Care Reviewed With patient OUTCOME EVALUATION NOTE: OUTCOME SUMMARY: Patient assessed at start of shift, vital signs stable. Patient Alert, responded to questions with thumbs up/thumb down. Patient incontinent of urine. Patient tolerated medications. Patient rested throughout night. PLAN MOVING FORWARD: Continue to monitor skin Promote ambulation INDIVIDUALIZED FALL PREVENTION INTERVENTIONS: Patient-specific fall risk factors per assessment: [current deficits]: Blind, generalized weakness Assistance [level of assistance required for transfers and ambulation]: 2 assist Supervision [direct monitoring required during toileting and ADLs]: Direct Surveillance [continuous indirect monitoring]: Sitter at bedside Patient-specific fall prevention interventions for sensory deficits provided, if applicable: [X] N/A CPG GOAL OUTCOME EVALUATION: Goal: Fall Prevention-Safe Patient Handling Outcome: Ongoing (Interventions Implemented as Appropriate) 10/19/17 0610/19/17 0810/19/17 2100 Restraint Interventions Safety Promotion/Fall Prevention -- -- -- Activity Activity Type -- bedrest with commode -- Activity Assistance Provided -- assistance, 2 people -- Assistive Device Utilized four-wheel walker -- -- Positioning Body Position -- -- -- Daily Care Interventions Self-Care Promotion -- independence encouraged -- [place] Fall Risk History of Falling -- -- 25 Secondary Diagnosis -- -- 15 Ambulatory Aids -- -- 0 Intravenous Therapy/Heparin/Saline Lock -- -- 0 Gait/Transferring -- -- 0 Mental Status -- -- 15 Score -- -- 55 OTHER [place] Fall Risk -- -- High 10/20/17 0200 Restraint Interventions Safety Promotion/Fall Prevention activity supervised Activity Activity Type -- Activity Assistance Provided -- Assistive Device Utilized -- Positioning Body Position independent Daily Care Interventions Self-Care Promotion -- [place] Fall Risk History of Falling -- Secondary Diagnosis -- Ambulatory Aids -- Intravenous Therapy/Heparin/Saline Lock -- Gait/Transferring -- Mental Status -- Score -- OTHER [place] Fall Risk -- Goal: Infection Control Outcome: Ongoing (Interventions Implemented as Appropriate) 10/19/17209910/20/17 020 Coping Strategies Supportive Measures active listening utilized -- Safety Interventions Isolation Precautions -- standard precautions maintained Infection Prevention -- rest/sleep promoted Problem: Skin Integrity Impairment, Risk/Actual (Adult) Goal: Skin Integrity/Wound Healing Patient will demonstrate the desired outcomes by discharge/transition of care. Outcome: Ongoing (Interventions Implemented as Appropriate) 10/19/17607 Skin Integrity Impairment, Risk/Actual (Adult) Skin Integrity/Wound Healing making progress toward outcome * Plan of Care - Judie Thrasher RN - 10/19/2017 4:09 PM EDT Problem: Patient Care Overview Goal: Plan of Care Review Outcome: Ongoing (Interventions Implemented as Appropriate) 10/19/17 0610/19/17 08 Coping/Psychosocial Plan Of Care Reviewed With -- patient Plan of Care Review Progress no change -- OUTCOME EVALUATION NOTE: OUTCOME SUMMARY: Patient napped intermittently throughout the day. Got patient up with 2 assist to the bedside commode for toileting. Strict intake kept for patient per fluid restriction. No events on shift, will continue to monitor. PLAN MOVING FORWARD: Continue to monitor pain, toilet to avoid incontinent episodes. INDIVIDUALIZED FALL PREVENTION INTERVENTIONS: Patient-specific fall risk factors per assessment: [current deficits]: Narcotic medications, surgery, trauma, hospital environment Assistance [level of assistance required for transfers and ambulation]: two person assist Supervision [direct monitoring required during toileting and ADLs]: hands on Surveillance [continuous indirect monitoring]: Masimo, purposeful rounding, bed alarm, bedside NKE Patient-specific fall prevention interventions for sensory deficits provided, if applicable: CPG GOAL OUTCOME EVALUATION: Goal: Individualization & Mutuality Outcome: Ongoing (Interventions Implemented as Appropriate) 10/17/17 17410/19/17 0608 Individualization Patient Specific Preferences -- cluster care to promote rest Patient Specific Goals -- limit interuptions to pt's rest periods, maintain safety plan Patient Specific Interventions -- cluster care, radio off at night, sitter at bedside Mutuality/Individual Preferences What Anxieties, Fears or Concerns Do You Have About Your Health or Care? ISHAAN -- What Questions Do You Have About Your Health or Care? ISHAAN -- What Information Would Help Us Give You More Personalized Care? ISHAAN -- Goal: Fall Prevention-Safe Patient Handling Outcome: Ongoing (Interventions Implemented as Appropriate) 10/19/17 0608 10/19/17 0830 Restraint Interventions Safety Promotion/Fall Prevention -- activity supervised Activity Activity Type -- bedrest with commode Activity Assistance Provided -- assistance, 2 people Assistive Device Utilized four-wheel walker -- Positioning Body Position -- independent Daily Care Interventions Self-Care Promotion -- independence encouraged [place] Fall Risk History of Falling -- 25 Secondary Diagnosis -- 15 Ambulatory Aids -- 0 Intravenous Therapy/Heparin/Saline Lock -- 0 Gait/Transferring -- 20 Mental Status -- 15 Score -- 75 OTHER [place] Fall Risk -- High Goal: Infection Control Outcome: Ongoing (Interventions Implemented as Appropriate) 10/19/17 0830 Coping Strategies Supportive Measures active listening utilized Safety Interventions Isolation Precautions standard precautions maintained Infection Prevention rest/sleep promoted;single patient room provided Goal: Discharge Needs Assessment Outcome: Ongoing (Interventions Implemented as Appropriate) 09/08/17 0403 09/18/17 1250 10/03/17 1654 Discharge Needs Assessment Concerns To Be Addressed -- -- -- Readmission Within The Last 30 Days -- -- -- Equipment Needed After Discharge -- other (see comments) (TBD) -- Discharge Facility/Level Of Care Needs -- -- adult foster care/nursing home Current Discharge Risk -- cognitively impaired;physical impairment -- Discharge Disposition -- still a patient -- Current Health Outpatient/Agency/Support Group Needs -- nursing home (specify) -- Anticipated Changes Related to Illness none -- -- Living Environment Transportation Available -- car (caregiver from nursing home) -- Activity/Self Care Review of Systems Equipment Currently Used at Home -- none -- 10/14/17 0631 Discharge Needs Assessment Concerns To Be Addressed no discharge needs identified;denies needs/concerns at this time Readmission Within The Last 30 Days no previous admission in last 30 days Equipment Needed After Discharge -- Discharge Facility/Level Of Care Needs -- Current Discharge Risk -- Discharge Disposition -- Current Health Outpatient/Agency/Support Group Needs -- Anticipated Changes Related to Illness -- Living Environment Transportation Available -- Activity/Self Care Review of Systems Equipment Currently Used at Home -- Goal: Interdisciplinary Rounds/Family Conf Outcome: Ongoing (Interventions Implemented as Appropriate) 10/10/17 1735 Interdisciplinary Rounds/Family Conf Participants family;nursing;patient;physician;shoe caser (caregiver) Problem: Skin Integrity Impairment, Risk/Actual (Adult) Goal: Skin Integrity/Wound Healing Patient will demonstrate the desired outcomes by discharge/transition of care. Outcome: Ongoing (Interventions Implemented as Appropriate) 10/19/17 0608 Skin Integrity Impairment, Risk/Actual (Adult) Skin Integrity/Wound Healing making progress toward outcome * Plan of Care - Kusum Hidalgo RN - 10/19/2017 6:20 AM EDT Problem: Patient Care Overview Goal: Plan of Care Review Outcome: Ongoing (Interventions Implemented as Appropriate) 10/19/17 0608 Coping/Psychosocial Plan Of Care Reviewed With patient Plan of Care Review Progress no change OUTCOME EVALUATION NOTE: OUTCOME SUMMARY: Pt restless and continued baseline yelling. Sitter in at all times. Radio was shut off with limitedstimulation. Meds given inbetween rest periods. Pt slept at long intervals with less periods of restlessness. Cooperative with taking pills with water. Vital signs stable. Will continue with behaviorplan and maintain safety plan. PLAN MOVING FORWARD: -maintain safety plan -Pain Control -Mobilize INDIVIDUALIZED FALL PREVENTION: Assistance: 2 assist with walker Supervision: - Hands-on for all transfers and ambulation - Eyes-on for all transfers and ambulation - Arms-Reach for all transfers and ambulation Surveillance: - Bed Alarm/Chair Alarm - Purposeful Rounding -Team Care - Bedside Nurse Knowledge Exchange -sitter at all times CPG OUTCOME EVALUATION: Goal: Individualization & Mutuality Outcome: Ongoing (Interventions Implemented as Appropriate) 10/19/17 0608 Individualization Patient Specific Preferences cluster care to promote rest Patient Specific Goals limit interuptions to pt's rest periods, maintain safety plan Patient Specific Interventions cluster care, radio off at night, sitter at bedside Goal: Fall Prevention-Safe Patient Handling Outcome: Ongoing (Interventions Implemented as Appropriate) 10/19/17 0608 Restraint Interventions Safety Promotion/Fall Prevention activity supervised;fall prevention program maintained;nonskid shoes/slippers when out of bed;safety round/check completed Activity Activity Type activity encouraged Activity Assistance Provided assistance, 2 people Assistive Device Utilized four-wheel walker Positioning Body Position supine, head elevated Daily Care Interventions Self-Care Promotion independence encouraged;BADL personal objects within reach [place] Fall Risk History of Falling 25 Secondary Diagnosis 15 Ambulatory Aids 15 Intravenous Therapy/Heparin/Saline Lock 0 Gait/Transferring 20 Mental Status 15 Score 90 OTHER [place] Fall Risk High Goal: Infection Control Outcome: Ongoing (Interventions Implemented as Appropriate) 10/19/17 0608 Coping Strategies Supportive Measures active listening utilized Safety Interventions Isolation Precautions standard precautions maintained Infection Prevention rest/sleep promoted Goal: Discharge Needs Assessment Outcome: Ongoing (Interventions Implemented as Appropriate) 09/08/17 0403 09/18/17 1250 10/03/17 1654 Discharge Needs Assessment Concerns To Be Addressed -- -- -- Readmission Within The Last 30 Days -- -- -- Equipment Needed After Discharge -- other (see comments) (TBD) -- Discharge Facility/Level Of Care Needs -- -- adult foster care/nursing home Current Discharge Risk -- cognitively impaired;physical impairment -- Discharge Disposition -- still a patient -- Current Health Outpatient/Agency/Support Group Needs -- nursing home (specify) -- Anticipated Changes Related to Illness none -- -- Living Environment Transportation Available -- car (caregiver from nursing home) -- Activity/Self Care Review of Systems Equipment Currently Used at Home -- none -- 10/14/17 0631 Discharge Needs Assessment Concerns To Be Addressed no discharge needs identified;denies needs/concerns at this time Readmission Within The Last 30 Days no previous admission in last 30 days Equipment Needed After Discharge -- Discharge Facility/Level Of Care Needs -- Current Discharge Risk -- Discharge Disposition -- Current Health Outpatient/Agency/Support Group Needs -- Anticipated Changes Related to Illness -- Living Environment Transportation Available -- Activity/Self Care Review of Systems Equipment Currently Used at Home -- Problem: Skin Integrity Impairment, Risk/Actual (Adult) Goal: Skin Integrity/Wound Healing Patient will demonstrate the desired outcomes by discharge/transition of care. Outcome: Ongoing (Interventions Implemented as Appropriate) 10/19/17 0608 Skin Integrity Impairment, Risk/Actual (Adult) Skin Integrity/Wound Healing making progress toward outcome * Plan of Care - Alanna Paulino RN - 10/18/2017 6:35 PM EDT Problem: Patient Care Overview Goal: Plan of Care Review Outcome: Ongoing (Interventions Implemented as Appropriate) 10/18/17 1832 Coping/Psychosocial Plan Of Care Reviewed With patient Plan of Care Review Progress no change OUTCOME EVALUATION NOTE: OUTCOME SUMMARY: Patient tolerating PO diet. Patient still on 3200 ml fluid restriction. Patient had rn medicare [id number] today. Patients pain treated with scheduled and PRN medication,see MAR. Patient got out ofbed and into wheel chair and went around unit today. Will continue to monitor. PLAN MOVING FORWARD: -Pain Control -Mobilize -Discharge planning INDIVIDUALIZED FALL PREVENTION: Fall Score: 90 - high Baseline mobility: up at mulu Assistance: -two person-assist with walker Supervision: -Hands-on for all transfers and ambulation Surveillance: -Bed Alarm/Chair Alarm -Purposeful Rounding -Team Care -Bedside Nurse Knowledge Exchange CPG OUTCOME EVALUATION: Goal: Fall Prevention-Safe Patient Handling Outcome: Ongoing (Interventions Implemented as Appropriate) 10/18/17 0908 10/18/17 1832 Restraint Interventions Safety Promotion/Fall Prevention activity supervised;fall prevention program maintained;safety round/check completed;nonskid shoes/slippers when out of bed -- Activity Activity Type activity encouraged -- Activity Assistance Provided -- assistance, 2 people Assistive Device Utilized -- front-wheel walker;wheelchair Positioning Body Position independent -- Daily Care Interventions Self-Care Promotion independence encouraged;BADL personal objects within reach -- [place] Fall Risk History of Falling 25 -- Secondary Diagnosis 15 -- Ambulatory Aids 15 -- Intravenous Therapy/Heparin/Saline Lock 0 -- Gait/Transferring 20 -- Mental Status 15 -- Score 90 -- OTHER [place] Fall Risk High -- Goal: Infection Control Outcome: Ongoing (Interventions Implemented as Appropriate) 10/18/17 0908 Coping Strategies Supportive Measures active listening utilized;relaxation techniques promoted Safety Interventions Isolation Precautions standard precautions maintained Infection Prevention environmental surveillance performed;rest/sleep promoted;single patient room provided * Med Student Progress Note - Bonnie Velásquez - 10/18/2017 7:57 AM EDT Hospital Medicine Attending Daily Progress Note Admit Date: 09/02/2017 Hospital Day 46 days Active Hospital Problems Diagnosis ??? S/P ORIF left acetabulum fracture 09/04/2017 Dr. Lance ??? Postoperative anemia due to acute blood loss ??? Diabetes insipidus ??? Adrenal insufficiency ??? Panhypopituitarism ??? Seizure disorder ??? Hypothyroidism Resolved Hospital Problems Diagnosis Date Resolved No resolved problems to display. PMH Active Non-Hospital Problems Diagnosis ??? Insomnia ??? Blind ??? CVA (cerebral vascular accident) ??? Urinary incontinence Inpatient Medications: Scheduled ??? melatonin 9 mg Oral Nightly ??? testosterone 5 g Transdermal Nightly ??? acetaminophen 1,000 mg Oral Q8H ??? HYDROmorphone 6 mg Oral Nightly ??? desmopressin 0.05 mg Oral 3 times per day ??? methyl salicylate-menthol Topical (Top) BID ??? calcium carbonate 500 mg Oral BID ??? cholecalciferol (Vitamin D3) 1,000 Units Oral Daily ??? hydrocortisone 20 mg Oral QAM ??? hydrocortisone 10 mg Oral Daily at Noon ??? hydrocortisone 10 mg Oral Q24H ??? enoxaparin 40 mg Subcutaneous Nightly ??? levothyroxine 150 mcg Oral QAM ??? pantoprazole 40 mg Oral QAM AC ??? QUEtiapine 250 mg Oral Nightly ??? traZODone 50 mg Oral Nightly ??? zonisamide 200 mg Oral Nightly Continuous infusions: PRN: HYDROmorphone, bisacodyl, LORazepam, haloperidol, polyethylene glycol (MIRALAX)oral powder, senna-docusate, lidocaine, naphazoline-pheniramine Interval History: Patient's PM meds scheduled for earlier in evening with good effect, patient agitated somewhat before 10pm but slept throughout night with only few disturbances. Only required PRN haldol. Yesterday during day, refusing to get up to work with PT, nursing to get into wheelchair. Denies pain, SOB, lightheadedness, n/v/d. Caregiver at bedside and reports no concerns. Physical Exam Vitals Range last 24 hrs Temperature Temp: [36.1 ??C (97 ??F)] Heart Rate Heart Rate: -- Blood Pressure BP: (132)/(92) Respiratory Rate Resp: [18] SpO2 SpO2: [92 %-100 %] General: pleasant young man, non-verbal, in no acute distress, eating breakfast. HEENT: non-icteric sclera, mild conjunctival pallor, no LAD. Poor dentition overall, cracked tooth on L bottom Heart: RRR, no m/r/g Lungs: CTAB, no wheezes, crackles Abd: soft, non-tender, +BS Ext: warm and well-perfused, no edema or cyanosis Skin: no rashes or lesions, L hip scar 2/2 hip fracture repair Intake/Output Summary (Last 24 hours) at 10/18/17 1132 Last data filed at 10/18/17 0700 Gross per 24 hour Intake 600 ml Output 0 ml Net 600 ml LABS: Last 3 Lytes Recent Labs 10/17/17 1827 10/16/17 1026 10/15/17 0827 NA 142 141 140 K Not Perf 4.0 3.7 CL 102 104 101 CO2 22 22 24 BUN 15 16 16 CREATININE 0.86 0.86 0.99 Assessment/Plan: #Panhypopituitarism with central DI, adrenal insufficiency on chronic steroids, hypothyroidism, hypogonadism BP stable, electrolytes stable, OK to dc daily BMPs at this point. -appreciate endocrine recs -DDAVP 0.05mg TID (hold parameters: contact MD and can consider one time hold for Na <135) -home hydrocortisone 20mg morning, 10mg non, 10mg nightly -home levothyroxine 150mcg daily -on pharmacy equivalent testosterone replacement -encourage good PO intake, fluid oz goal 110 #Left hip fracture s/p repair 09/04 with orthopedics Patient tolerating stand pivot to wheelchair, but requiring more assistance than before,likely somedeconditioning from extended hospital but also fatigue due to sleep-wake dysfunction. -vit D3 1000 units daily -encourage ambulation #Cracked Tooth Stable, does not appear infected. -CT head wo contrast with anesthesia Friday -awaiting maxillofacial surgery input #Agitation #Sleep Wake Disturbance Pain 2/2 hip fracture likely contributing significantly to agitation. Improvement in agitation withearlier night meds and inc melatonin. -acetaminophen 1g q8hr -dilaudid 6mg nightly -dilaudid 2mg PRN -haldol 2mg q6hr PRN -ativan 0.5mg BID PRN -melatonin 9 mg nightly -encourage waking during day, with windows open, going in wheelchair for walks #Seizure Disorder Stable. -home zonesamide 200 qhs IV access: none Tubes/Drains: none DVT PPX: daily lovenox GI PPX: tums 500mg BID, pantoprazole 40mg morning, dulcolax 10mg suppository PRN Anticipated Disposition: CM working on possible outpatient rehab Goals of Care: FULL CODE Team Pager( Coverage 27/01): #[phone] PCP: NAKIA Cifuentes [phone] Bonnie Velásquez 10/18/2017 Pager [phone] * Plan of Care - Alanna Paulino RN - 10/17/2017 5:52 PM EDT Problem: Patient Care Overview Goal: Plan of Care Review Outcome: Ongoing (Interventions Implemented as Appropriate) 10/17/171744 Coping/Psychosocial Plan Of Care Reviewed With patient Plan of Care Review Progress no change OUTCOME EVALUATION NOTE: OUTCOME SUMMARY: Patient tolerating PO diet. Sitter at bedside until caregiver arrived at 8 AM. Patient refused to work with OT today, patient refused to get up with RN as well. Patient on 3200 fluid restriction. Bedalarm on to help maintain patient safety. Will continue to monitor. PLAN MOVING FORWARD: -Pain Control -Mobilize -Discharge planning INDIVIDUALIZED FALL PREVENTION: Fall Score: 90 - high Baseline mobility: up at mulu Assistance: -two person-assist with walker Supervision: -Hands-on for all transfers and ambulation Surveillance: -Bed Alarm/Chair Alarm -Masimo -Purposeful Rounding -Team Care -Bedside Nurse Knowledge Exchange CPG OUTCOME EVALUATION: Goal: Individualization & Mutuality Outcome: Ongoing (Interventions Implemented as Appropriate) 10/17/171744 Mutuality/Individual Preferences What Anxieties, Fears or Concerns Do You Have About Your Health or Care? ISHAAN What Questions Do You Have About Your Health or Care? ISHAAN What Information Would Help Us Give You More Personalized Care? ISHAAN Goal: Fall Prevention-Safe Patient Handling Outcome: Ongoing (Interventions Implemented as Appropriate) 10/17/1794810/17/171744 Restraint Interventions Safety Promotion/Fall Prevention activity supervised;fall prevention program maintained;nonskid shoes/slippers when out of bed;safety round/check completed -- Activity Activity Type activity encouraged -- Activity Assistance Provided -- assistance, 2 people Assistive Device Utilized -- front-wheel walker;wheelchair Positioning Body Position independent -- Daily Care Interventions Self-Care Promotion independence encouraged;BADL personal objects within reach -- [place] Fall Risk History of Falling 25 -- Secondary Diagnosis 15 -- Ambulatory Aids 15 -- Intravenous Therapy/Heparin/Saline Lock 0 -- Gait/Transferring 20 -- Mental Status 15 -- Score 90 -- OTHER [place] Fall Risk High -- Goal: Infection Control Outcome: Ongoing (Interventions Implemented as Appropriate) 10/17/1794810/17/171744 Coping Strategies Supportive Measures -- active listening utilized;self-care encouraged;verbalization of feelings encouraged Safety Interventions Isolation Precautions standard precautions maintained -- Infection Prevention environmental surveillance performed;rest/sleep promoted;single patient room provided -- Problem: Skin Integrity Impairment, Risk/Actual (Adult) Goal: Skin Integrity/Wound Healing Patient will demonstrate the desired outcomes by discharge/transition of care. Outcome: Ongoing (Interventions Implemented as Appropriate) 10/17/17 1745 Skin Integrity Impairment, Risk/Actual (Adult) Skin Integrity/Wound Healing making progress toward outcome * Med Student Progress Note - Bonnie Velásquez - 10/17/2017 7:22 AM EDT Hospital Medicine Attending Daily Progress Note Admit Date: 09/02/2017 Hospital Day 45 days Active Hospital Problems Diagnosis ??? S/P ORIF left acetabulum fracture 09/04/2017 Dr. Lance ??? Postoperative anemia due to acute blood loss ??? Diabetes insipidus ??? Adrenal insufficiency ??? Panhypopituitarism ??? Seizure disorder ??? Hypothyroidism Resolved Hospital Problems Diagnosis Date Resolved No resolved problems to display. PMH Active Non-Hospital Problems Diagnosis ??? Insomnia ??? Blind ??? CVA (cerebral vascular accident) ??? Urinary incontinence Inpatient Medications: Scheduled ??? melatonin 6 mg Oral Nightly ??? testosterone 5 g Transdermal Nightly ??? acetaminophen 1,000 mg Oral Q8H ??? HYDROmorphone 6 mg Oral Nightly ??? desmopressin 0.05 mg Oral 3 times per day ??? methyl salicylate-menthol Topical (Top) BID ??? calcium carbonate 500 mg Oral BID ??? cholecalciferol (Vitamin D3) 1,000 Units Oral Daily ??? hydrocortisone 20 mg Oral QAM ??? hydrocortisone 10 mg Oral Daily at Noon ??? hydrocortisone 10 mg Oral Q24H ??? enoxaparin 40 mg Subcutaneous Nightly ??? levothyroxine 150 mcg Oral QAM ??? pantoprazole 40 mg Oral QAM AC ??? QUEtiapine 250 mg Oral Nightly ??? traZODone 50 mg Oral Nightly ??? zonisamide 200 mg Oral Nightly Continuous infusions: PRN: HYDROmorphone, bisacodyl, LORazepam, haloperidol, polyethylene glycol (MIRALAX)oral powder, senna-docusate, lidocaine, naphazoline-pheniramine Interval History: Attempted CT head yesterday, patient would not tolerate this. Radiology says he will require sedation Patient agitated overnight despite PRN meds, but more alert and ate well this morning. No complaints. Denies pain, SOB, lightheadedness, n/v/d. Caregiver at bedside and reports no concerns. Physical Exam Vitals Range last 24 hrs Temperature Temp: [36.1 ??C (97 ??F)-36.8 ??C (98.2 ??F)] Heart Rate Heart Rate: -- Blood Pressure BP: (113-135)/(76-86) Respiratory Rate Resp: [18-20] SpO2 SpO2: [98 %-99 %] General: pleasant young man, non-verbal, in no acute distress, eating breakfast and upright in bed HEENT: non-icteric sclera, mild conjunctival pallor, no LAD. Poor dentition overall, cracked tooth on L bottom Heart: RRR, no m/r/g Lungs: CTAB, no wheezes, crackles Abd: soft, non-tender, +BS Ext: warm and well-perfused, no edema or cyanosis Skin: no rashes or lesions, L hip scar 2/2 hip fracture repair Neuro exam: does not cooperate for exam Intake/Output Summary (Last 24 hours) at 10/17/17 0722 Last data filed at 10/17/17 0600 Gross per 24 hour Intake 2620 ml Output 250 ml Net 2370 ml LABS: Last 3 Lytes Recent Labs 10/16/17 1026 10/15/17 0827 10/14/17 1336 NA 141 140 140 K 4.0 3.7 3.6 CL 104 101 100 CO2 22 24 23 BUN 16 16 18 CREATININE 0.86 0.99 0.85 Assessment/Plan: #Panhypopituitarism with central DI, adrenal insufficiency on chronic steroids, hypothyroidism, hypogonadism BP stable, electrolytes stable, OK to dc daily BMPs at this point. -appreciate endocrine recs -DDAVP 0.05mg TID (hold parameters: contact MD and can consider one time hold for Na <135) -home hydrocortisone 20mg morning, 10mg non, 10mg nightly -home levothyroxine 150mcg daily -on pharmacy equivalent testosterone replacement -encourage good PO intake, fluid oz goal 110 #Left hip fracture s/p repair 09/04 with orthopedics Patient tolerating stand pivot to wheelchair, but requiring more assistance than before,likely somedeconditioning from extended hospital but also fatigue due to sleep-wake dysfunction. -vit D3 1000 units daily -PT/OT re-eval #Cracked Tooth Stable, does not appear infected. -contact [facility] for sedation for CT head wo contrast -awaiting maxillofacial surgery input #Agitation #Sleep Wake Disturbance Pain 2/2 hip fracture likely contributing significantly to agitation. May benefit from giving nightly meds earlier and trying to reset sleep-wake cycle with large dose melatonin 9mg. Will discuss daymanagement with sitter and nursing. -acetaminophen 1g q8hr -dilaudid 6mg nightly -dilaudid 2mg PRN -haldol 2mg q6hr PRN -ativan 0.5mg BID PRN -melatonin 9 mg nightly -encourage waking during day, with windows open, going in wheelchair for walks -schedule nightly meds for 7pm #Seizure Disorder Stable. -home zonesamide 200 qhs IV access: none Tubes/Drains: none DVT PPX: daily lovenox GI PPX: tums 500mg BID, pantoprazole 40mg morning, dulcolax 10mg suppository PRN Anticipated Disposition: CM working on possible outpatient rehab Goals of Care: FULL CODE Team Pager( Coverage 27/01): #[phone] PCP: NAKIA Cifuentes [phone] Bonnie Velásquez 10/17/2017 Pager [phone] * Plan of Care - Landy Benitez RN - 10/17/2017 3:59 AM EDT Problem: Patient Care Overview Goal: Plan of Care Review Outcome: Ongoing (Interventions Implemented as Appropriate) 10/16/17 1210 10/16/17 2100 Coping/Psychosocial Plan Of Care Reviewed With -- patient;caregiver Plan of Care Review Progress progress towards functional goals is fair -- OUTCOME EVALUATION NOTE: OUTCOME SUMMARY: Patient progressing towards d/c goals appropriately at this time. Patients pain adequately controlled, see MAR for medications given. Will continue to monitor and help patient reach d/c goals. PLAN MOVING FORWARD: Pain control Mobilize D/c planning INDIVIDUALIZED FALL PREVENTION: Patient educated on bed/chair alarm, demonstrates proper use of call morris and verbalizes understanding of fall preventions implemented. Patient-specific fall risk factors per assessment: [current deficits]: Pain, Medications, Hospital Environment. Assistance [level of assistance required for transfers and ambulation]: x2 assist Supervision [direct monitoring required during toileting and ADLs]: x2 assistance with ADL's Surveillance [continuous indirect monitoring]: Masimo, Purposeful Rounding, Bedside Report Patient-specific fall prevention interventions for sensory deficits provided, if applicable: [X] Yes CPG GOAL OUTCOME EVALUATION: Progress * Plan of Care - Kateryna Whitehead RN - 10/16/2017 12:17 PM EDT Problem: Patient Care Overview Goal: Plan of Care Review Outcome: Ongoing (Interventions Implemented as Appropriate) 10/16/17 1210 Coping/Psychosocial Plan Of Care Reviewed With patient;caregiver Plan of Care Review Progress progress towards functional goals is fair Goal: Fall Prevention-Safe Patient Handling Outcome: Ongoing (Interventions Implemented as Appropriate) 10/15/17200610/16/17 0747 Restraint Interventions Safety Promotion/Fall Prevention -- activity supervised;fall prevention program maintained;muscle strengthening facilitated;nonskid shoes/slippers when out of bed;safety round/check completed Activity Activity Type -- activity adjusted per tolerance Activity Assistance Provided -- assistance, 2 people Assistive Device Utilized -- front-wheel walker Positioning Body Position -- independent Daily Care Interventions Self-Care Promotion independence encouraged -- [place] Fall Risk History of Falling -- 25 Secondary Diagnosis -- 15 Ambulatory Aids -- 15 Intravenous Therapy/Heparin/Saline Lock -- 0 Gait/Transferring -- 20 Mental Status -- 15 Score -- 90 OTHER [place] Fall Risk -- High Goal: Infection Control Outcome: Ongoing (Interventions Implemented as Appropriate) 10/16/17 0747 Safety Interventions Isolation Precautions standard precautions maintained Infection Prevention single patient room provided Coping Strategies Supportive Measures active listening utilized;positive reinforcement provided Problem: Skin Integrity Impairment, Risk/Actual (Adult) Goal: Skin Integrity/Wound Healing Patient will demonstrate the desired outcomes by discharge/transition of care. Outcome: Ongoing (Interventions Implemented as Appropriate) OUTCOME EVALUATION NOTE: OUTCOME SUMMARY: VSS with pt on RA. Pt has displayed no s/s of pain so far this shift, when asked if in pain pt did not answer and just drifted back off to sleep. Assisted pt to bedside commode after he finished breakfast, pt unable to go at the time and when asked he shook his head no indicating he did not need togo the bathroom, will continue to encourage activity as tolerated and assist to wheelchair or bedside commode following touch touch down WB status to LLE per MD orders. Pt has been drowsy so far thisshift, appears to fall asleep in between care activities. During am medications but refused to swallow pills, after 10 minutes of attempting to bribe pt to swallow pills they were finger swept out ofhis mouth. Will continue to encourage activity, PO oral intake but maintain fluid restrictions in place. Continue to give care prn for incontinence. PLAN MOVING FORWARD: Continued d/c planning, assist with ROM exercises, assist with hygiene care; provide interventions as needed for pain or agitation INDIVIDUALIZED FALL PREVENTION INTERVENTIONS: Patient-specific fall risk factors per assessment: [current deficits]: Blind, impaired mobility Assistance [level of assistance required for transfers and ambulation]: x2 assist with a walker Supervision [direct monitoring required during toileting and ADLs]: Hands on supervision Surveillance [continuous indirect monitoring]: Sitter at bedside Patient-specific fall prevention interventions for sensory deficits provided, if applicable: [X] Yes CPG GOAL OUTCOME EVALUATION: Progressing * Med Student Progress Note - Bonnie Velásquez - 10/16/2017 8:52 AM EDT Hospital Medicine Attending Daily Progress Note Admit Date: 09/02/2017 Hospital Day 44 days Active Hospital Problems Diagnosis ??? S/P ORIF left acetabulum fracture 09/04/2017 Dr. Lance ??? Postoperative anemia due to acute blood loss ??? Diabetes insipidus ??? Adrenal insufficiency ??? Panhypopituitarism ??? Seizure disorder ??? Hypothyroidism Resolved Hospital Problems Diagnosis Date Resolved No resolved problems to display. PMH Active Non-Hospital Problems Diagnosis ??? Insomnia ??? Blind ??? CVA (cerebral vascular accident) ??? Urinary incontinence Inpatient Medications: Scheduled ??? melatonin 6 mg Oral Nightly ??? testosterone 5 g Transdermal Nightly ??? acetaminophen 1,000 mg Oral Q8H ??? HYDROmorphone 6 mg Oral Nightly ??? desmopressin 0.05 mg Oral 3 times per day ??? methyl salicylate-menthol Topical (Top) BID ??? calcium carbonate 500 mg Oral BID ??? cholecalciferol (Vitamin D3) 1,000 Units Oral Daily ??? hydrocortisone 20 mg Oral QAM ??? hydrocortisone 10 mg Oral Daily at Noon ??? hydrocortisone 10 mg Oral Q24H ??? enoxaparin 40 mg Subcutaneous Nightly ??? levothyroxine 150 mcg Oral QAM ??? pantoprazole 40 mg Oral QAM AC ??? QUEtiapine 250 mg Oral Nightly ??? traZODone 50 mg Oral Nightly ??? zonisamide 200 mg Oral Nightly Continuous infusions: PRN: HYDROmorphone, bisacodyl, LORazepam, haloperidol, polyethylene glycol (MIRALAX)oral powder, senna-docusate, lidocaine, naphazoline-pheniramine Interval History: Patient slept throughout most of day yesterday and awake and agitated at night. Some improvement with PRN meds. Difficulty with mobility to wheelchair, nursing reports more weakness than in days prior. Also falling asleep while in wheelchair in the [place]. Denies pain, SOB, lightheadedness, n/v/d. Eating well. Caregiver at bedside and reports no concerns. Physical Exam Vitals Range last 24 hrs Temperature Temp: [36.2 ??C (97.2 ??F)-36.8 ??C (98.2 ??F)] Heart Rate Heart Rate: -- Blood Pressure BP: (121-131)/(75-81) Respiratory Rate Resp: [17-18] SpO2 SpO2: [98 %-99 %] General: pleasant young man, non-verbal, in no acute distress, sleeping but arousable for exam HEENT: non-icteric sclera, mild conjunctival pallor, no LAD. Poor dentition overall, cracked tooth on L bottom Heart: RRR, no m/r/g Lungs: CTAB, no wheezes, crackles Abd: soft, non-tender, +BS Ext: warm and well-perfused, no edema or cyanosis Skin: no rashes or lesions, L hip scar 2/2 hip fracture repair Neuro exam: does not cooperate for exam Intake/Output Summary (Last 24 hours) at 10/16/17 1142 Last data filed at 10/16/17 0903 Gross per 24 hour Intake 1320 ml Output 1100 ml Net 220 ml LABS: Last 3 Lytes Recent Labs 10/16/17 1026 10/15/17 0827 10/14/17 1336 NA 141 140 140 K 4.0 3.7 3.6 CL 104 101 100 CO2 22 24 23 BUN 16 16 18 CREATININE 0.86 0.99 0.85 Assessment/Plan: #Panhypopituitarism with central DI, adrenal insufficiency on chronic steroids, hypothyroidism, hypogonadism BP stable, electrolytes stable -appreciate endocrine recs -DDAVP 0.05mg TID (hold parameters: contact MD and can consider one time hold for Na <135) -daily BMP -home hydrocortisone 20mg morning, 10mg non, 10mg nightly -home levothyroxine 150mcg daily -on pharmacy equivalent testosterone replacement -encourage good PO intake #Left hip fracture s/p repair 09/04 with orthopedics Patient tolerating stand pivot to wheelchair, but requiring more assistance than before,likely somedeconditioning from extended hospital but also fatigue due to sleep-wake dysfunction. -vit D3 1000 units daily -PT/OT re-eval #Cracked Tooth Stable, does not appear infected. -awaiting maxillofacial surgery input #Agitation #Sleep Wake Disturbance Pain 2/2 hip fracture likely contributing significantly to agitation, improved with scheduled tylenol and dilaudid. Patient's sleep-wake disturbance interfering with good nutrition/fluid intake. Willdiscuss management with sitter and nursing -acetaminophen 1g q8hr -dilaudid 6mg nightly -dilaudid 2mg PRN -haldol 2mg q6hr PRN -ativan 0.5mg BID PRN -melatonin to 6 mg nightly -encourage waking during day, with windows open, going in wheelchair for walks -schedule nightly meds for 7pm -consider additional 3mg melatonin if continued agitation at night #Seizure Disorder Stable. -home zonesamide 200 qhs IV access: none Tubes/Drains: none DVT PPX: daily lovenox GI PPX: tums 500mg BID, pantoprazole 40mg morning, dulcolax 10mg suppository PRN Anticipated Disposition: CM working on possible outpatient rehab Goals of Care: FULL CODE Team Pager(MD Coverage 27/01): #[phone] PCP: NAKIA Cifuentes [phone] Bonnie Velásquez 10/16/2017 Pager [phone] * Plan of Care - Landy Benitez RN - 10/16/2017 4:02 AM EDT Problem: Patient Care Overview Goal: Plan of Care Review OUTCOME EVALUATION NOTE: OUTCOME SUMMARY: Patient progressing towards d/c goals appropriately at this time. Patients pain adequately controlled, see MAR for medications given. Will continue to monitor and help patient reach d/c goals. PLAN MOVING FORWARD: Pain control Mobilize D/c planning INDIVIDUALIZED FALL PREVENTION: Patient educated on bed/chair alarm, demonstrates proper use of call morris and verbalizes understanding of fall preventions implemented. Patient-specific fall risk factors per assessment: [current deficits]: Pain, Medications, Hospital Environment. Assistance [level of assistance required for transfers and ambulation]: x2 assist Supervision [direct monitoring required during toileting and ADLs]: x2 assistance with ADL's Surveillance [continuous indirect monitoring]: Masimo, Purposeful Rounding, Bedside Report Patient-specific fall prevention interventions for sensory deficits provided, if applicable: [X] Yes CPG GOAL OUTCOME EVALUATION: progress * Plan of Care - Kateryna Whitehead RN - 10/15/2017 12:00 PM EDT Problem: Patient Care Overview Goal: Plan of Care Review 10/15/17 1151 Coping/Psychosocial Plan Of Care Reviewed With patient;caregiver Plan of Care Review Progress progress towards functional goals is fair Goal: Fall Prevention-Safe Patient Handling Outcome: Ongoing (Interventions Implemented as Appropriate) 10/08/17 1805 10/15/17 0932 Restraint Interventions Safety Promotion/Fall Prevention -- activity supervised;fall prevention program maintained;muscle strengthening facilitated;nonskid shoes/slippers when out of bed;safety round/check completed Activity Activity Type -- activity adjusted per tolerance Activity Assistance Provided -- assistance, 2 people Assistive Device Utilized -- front-wheel walker Positioning Body Position -- independent Daily Care Interventions Self-Care Promotion independence encouraged -- [place] Fall Risk History of Falling -- 25 Secondary Diagnosis -- 15 Ambulatory Aids -- 15 Intravenous Therapy/Heparin/Saline Lock -- 0 Gait/Transferring -- 20 Mental Status -- 15 Score -- 90 OTHER [place] Fall Risk -- High Goal: Infection Control Outcome: Ongoing (Interventions Implemented as Appropriate) 10/15/17 0932 Safety Interventions Isolation Precautions standard precautions maintained Infection Prevention single patient room provided Coping Strategies Supportive Measures positive reinforcement provided Problem: Skin Integrity Impairment, Risk/Actual (Adult) Goal: Skin Integrity/Wound Healing Patient will demonstrate the desired outcomes by discharge/transition of care. Outcome: Ongoing (Interventions Implemented as Appropriate) 10/15/17 1151 Skin Integrity Impairment, Risk/Actual (Adult) Skin Integrity/Wound Healing making progress toward outcome OUTCOME EVALUATION NOTE: OUTCOME SUMMARY: VSS with pt on RA. Pt has displayed no s/s of pain so far this shift, will continue to monitor and provide interventions as needed. Pt displayed a short episode of agitation earlier in shift but was easily calmed down with distraction techniques. Majority of shift so far pt has been resting in bed c almly with eyes closed. Safety measures in place, caregiver at bedside. Offering toileting assistance, incontinence care prn. Assisted pt to wheelchair from bed with a x2 assist with the use of the front wheel walker, attempting to maintain pt using TDWB to LLE per MD orders, pt displayed increased agitation during transferbut settled down and became calm again once sitting in chair again. Will encourage ROM and exercises per orders. PLAN MOVING FORWARD: Continue to monitor for changes in pt condition; provide assistance/interventions for pain or agitation as needed. Maintain safety/fall preventions. Continue D/c planning INDIVIDUALIZED FALL PREVENTION INTERVENTIONS: Patient-specific fall risk factors per assessment: [current deficits]: Impaired mobility, injury toleft hip Assistance [level of assistance required for transfers and ambulation]: x2 assist Supervision [direct monitoring required during toileting and ADLs]: Dependent, hands on assist Surveillance [continuous indirect monitoring]: Sitter/caregiver at bedside, hourly rounding by staff Patient-specific fall prevention interventions for sensory deficits provided, if applicable: [X] Yes CPG GOAL OUTCOME EVALUATION: Progressing * Med Student Progress Note - Bonnie Velásquez - 10/15/2017 8:40 AM EDT Hospital Medicine Attending Daily Progress Note Admit Date: 09/02/2017 Hospital Day 43 days Active Hospital Problems Diagnosis ??? S/P ORIF left acetabulum fracture 09/04/2017 Dr. Lance ??? Postoperative anemia due to acute blood loss ??? Diabetes insipidus ??? Adrenal insufficiency ??? Panhypopituitarism ??? Seizure disorder ??? Hypothyroidism Resolved Hospital Problems Diagnosis Date Resolved No resolved problems to display. PMH Active Non-Hospital Problems Diagnosis ??? Insomnia ??? Blind ??? CVA (cerebral vascular accident) ??? Urinary incontinence Inpatient Medications: Scheduled ??? acetaminophen 1,000 mg Oral Q8H ??? testosterone 3 Act Topical (Top) Daily ??? HYDROmorphone 6 mg Oral Nightly ??? desmopressin 0.05 mg Oral 3 times per day ??? methyl salicylate-menthol Topical (Top) BID ??? calcium carbonate 500 mg Oral BID ??? cholecalciferol (Vitamin D3) 1,000 Units Oral Daily ??? hydrocortisone 20 mg Oral QAM ??? hydrocortisone 10 mg Oral Daily at Noon ??? hydrocortisone 10 mg Oral Q24H ??? enoxaparin 40 mg Subcutaneous Nightly ??? levothyroxine 150 mcg Oral QAM ??? melatonin 3 mg Oral Nightly ??? pantoprazole 40 mg Oral QAM AC ??? QUEtiapine 250 mg Oral Nightly ??? traZODone 50 mg Oral Nightly ??? zonisamide 200 mg Oral Nightly Continuous infusions: PRN: HYDROmorphone, bisacodyl, LORazepam, haloperidol, polyethylene glycol (MIRALAX)oral powder, senna-docusate, lidocaine, naphazoline-pheniramine Interval History: Family meeting yesterday: discussed issues with outside caregivers transport. Sister voiced concernover patient's cracked tooth. Had few episodes agitation, improved with dilaudid, ativan. No acute events overnight, slept well between care. Agitated at beginning of shift. Denies pain, SOB, lightheadedness, n/v/d. Eating well. Caregiver at bedside and reports no concerns. Physical Exam Vitals Range last 24 hrs Temperature Temp: [36.2 ??C (97.2 ??F)-36.8 ??C (98.2 ??F)] Heart Rate Heart Rate: [89] Blood Pressure BP: (128-143)/(94-95) Respiratory Rate Resp: [18] SpO2 SpO2: [100 %] General: pleasant young man, non-verbal, in no acute distress, enjoying breakfast HEENT: non-icteric sclera, mild conjunctival pallor, no LAD. Does not tolerate oral exam to assess for cracked tooth. Heart: RRR, no m/r/g Lungs: CTAB, no wheezes, crackles Abd: soft, non-tender, +BS Ext: warm and well-perfused, no edema or cyanosis Skin: no rashes or lesions, L hip scar 2/2 hip fracture repair Neuro exam: does not cooperate for exam Intake/Output Summary (Last 24 hours) at 10/14/17 0749 Last data filed at 10/14/17 0600 Gross per 24 hour Intake 2100 ml Output 575 ml (30ml/hr) Net 1525 ml LABS: Last 3 Lytes Recent Labs 10/15/17 0827 10/14/17 1336 10/13/17 2354 NA 140 140 140 K 3.7 3.6 3.8 CL 101 100 103 CO2 24 23 24 BUN 16 18 15 CREATININE 0.99 0.85 0.88 Assessment/Plan: #Panhypopituitarism with central DI, adrenal insufficiency on chronic steroids, hypothyroidism, hypogonadism BP stable, electrolytes stable -appreciate endocrine recs -DDAVP 0.05mg TID (hold parameters: contact MD and can consider one time hold for Na <135) -daily BMP -home hydrocortisone 20mg morning, 10mg non, 10mg nightly -home levothyroxine 150mcg daily -switch to pharmacy equivalent testosterone replacement #Decreased UOP Patient made 30ml/hr urine yesterday, unclear if poor charting or 2/2 poor intake in setting of treatment for central DI. -F/U UOP today, ensure charting of incontinence -encourage PO intake (3.2L intake) #Left hip fracture s/p repair 09/04 with orthopedics #Agitation Patient tolerating stand pivot to wheelchair. Pain 2/2 hip fracture likely contributing significantly to agitation, good relief with scheduled tylenol and dilaudid. Consider additional nightly PRN melatonin for continued agitation. -vit D3 1000 units daily -acetaminophen 1g q8hr -dilaudid 6mg nightly -dilaudid 2mg PRN -haldol 2mg q6hr PRN -ativan 0.5mg BID PRN -inc melatonin to 6 mg nightly #Seizure Disorder Stable. -home zonesamide 200 qhs IV access: none Tubes/Drains: none DVT PPX: daily lovenox GI PPX: tums 500mg BID, pantoprazole 40mg morning, dulcolax 10mg suppository PRN Anticipated Disposition: family meeting today at 3pm, will discuss with case management Goals of Care: FULL CODE Team Pager(MD Coverage 27/01): #[phone] PCP: NAKIA Cifuentes [phone] Bonnie Velásquez 10/15/2017 Pager [phone] * Plan of Care - Lori Ordaz RN - 10/15/2017 6:13 AM EDT Problem: Patient Care Overview Goal: Plan of Care Review Outcome: Ongoing (Interventions Implemented as Appropriate) 10/15/17 0613 Coping/Psychosocial Plan Of Care Reviewed With patient Plan of Care Review Progress no change OUTCOME EVALUATION NOTE: ? OUTCOME SUMMARY: ? Pt was intermittently yelling out at the beginning of the shift. PRN pain meds provided with good relief. Pt slept well between care in the later part of the shift, awakenings minimized. No acute events overnight. See doc flowsheet for full pt assessment. Sitter remained at the bedside. Call morris within reach. VSS. Will continue to monitor. ? PLAN MOVING FORWARD: ? Pain management, improve mobility, d/c planning ? INDIVIDUALIZED FALL PREVENTION INTERVENTIONS: ? Patient-specific fall risk factors per assessment: [current deficits]:?Hospital environment, narcotics, pain, impaired mobility, blindness ? Assistance [level of assistance required for transfers and ambulation]:?2 assist w/ FWW ? Supervision [direct monitoring required during toileting and ADLs]:?Hands-on, eyes-on ? Surveillance [continuous indirect monitoring]:?Pt declines masimo, hourly rounding ? Patient-specific fall prevention interventions for sensory deficits provided, if applicable:?[X]Yes?? -bed alarm ? * Med Student Progress Note - Bonnie Velásquez - 10/14/2017 7:48 AM EDT Hospital Medicine Attending Daily Progress Note Admit Date: 09/02/2017 Hospital Day 42 days Active Hospital Problems Diagnosis ??? S/P ORIF left acetabulum fracture 09/04/2017 Dr. Lance ??? Postoperative anemia due to acute blood loss ??? Diabetes insipidus ??? Adrenal insufficiency ??? Panhypopituitarism ??? Seizure disorder ??? Hypothyroidism Resolved Hospital Problems Diagnosis Date Resolved No resolved problems to display. PMH Active Non-Hospital Problems Diagnosis ??? Insomnia ??? Blind ??? CVA (cerebral vascular accident) ??? Urinary incontinence Inpatient Medications: Scheduled ??? HYDROmorphone 6 mg Oral Nightly ??? desmopressin 0.05 mg Oral 3 times per day ??? methyl salicylate-menthol Topical (Top) BID ??? calcium carbonate 500 mg Oral BID ??? cholecalciferol (Vitamin D3) 1,000 Units Oral Daily ??? hydrocortisone 20 mg Oral QAM ??? hydrocortisone 10 mg Oral Daily at Noon ??? hydrocortisone 10 mg Oral Q24H ??? enoxaparin 40 mg Subcutaneous Nightly ??? levothyroxine 150 mcg Oral QAM ??? melatonin 3 mg Oral Nightly ??? pantoprazole 40 mg Oral QAM AC ??? QUEtiapine 250 mg Oral Nightly ??? traZODone 50 mg Oral Nightly ??? zonisamide 200 mg Oral Nightly Continuous infusions: PRN: HYDROmorphone, bisacodyl, LORazepam, haloperidol, polyethylene glycol (MIRALAX)oral powder, senna-docusate, lidocaine, naphazoline-pheniramine Interval History: Got 6 week XR yesterday, showed no change No acute events overnight, slept very well with scheduled PM dilaudid Denies pain, SOB, lightheadedness, n/v/d. Caregiver at bedside and reports no concerns. Physical Exam Vitals Range last 24 hrs Temperature Temp: [36.3 ??C (97.3 ??F)-36.5 ??C (97.7 ??F)] Heart Rate Heart Rate: -- Blood Pressure BP: (142-146)/(97) Respiratory Rate Resp: [16-20] SpO2 SpO2: [96 %-99 %] General: sleeping but arousable young man, non-verbal, in no acute distress, breathing RA HEENT: non-icteric sclera, mild conjunctival pallor, no LAD Heart: RRR, no m/r/g Lungs: CTAB, no wheezes, crackles Abd: soft, non-tender, +BS Ext: warm and well-perfused, no edema or cyanosis Skin: no rashes or lesions, L hip scar 2/2 hip fracture repair Intake/Output Summary (Last 24 hours) at 10/14/17 0749 Last data filed at 10/14/17 0600 Gross per 24 hour Intake 2100 ml Output 575 ml Net 1525 ml LABS: Last 3 Lytes Recent Labs 10/13/17 2354 10/13/17 1812 10/13/17 0334 NA 140 143 144 K 3.8 3.8 3.9 CL 103 104 105 CO2 24 23 23 BUN 15 14 16 CREATININE 0.88 0.69* 0.74* IMAGING: XR Pelvis 10/13/17 FINDINGS: Left acetabular and ischial internal plate and screw fixation present. Allowing for differences in projections, there has been no change in alignment of fixation device or bones. Projections of proximal and central acetabular fixation screws are obscured at angles obtained but I see no device fragmentation. No appreciable sclerosis or callus formation about internal fixation material. Sacrum is obscured by overlying bowel gas. Right hip joint unchanged. ?? IMPRESSION Stable bony alignment. Stable position internal fixation device. No appreciable overlying sclerosis or bony callus. Assessment/Plan: #Panhypopituitarism with central DI, adrenal insufficiency on chronic steroids, hypothyroidism, hypogonadism Stable. Will restart home androgel per sister's request. -appreciate endocrine recs -restart home androgel 60.75mg testosterone/3.75g gel once daily -DDAVP 0.05mg TID, can consider one time hold for Na <135 -BMP q8hr to monitor hyperNa -home hydrocortisone 20mg morning, 10mg non, 10mg nightly -home levothyroxine 150mcg daily #Left hip fracture s/p repair 09/04 with orthopedics #Agitation 6 week XR pelvis done yesterday showing no significant change. Ortho OKed for standing and pivotingto sit in wheelchair. Discussed these mobility limitations with nursing and will attempt this today. Pain 2/2 hip fracture likely contributing significantly to agitation, given good relief with scheduled dilaudid. Will arrange for scheduled tylenol to stay on top of pain -vit D3 1000 units daily -acetaminophen 1g q8hr -dilaudid 6mg nightly -dilaudid 2mg PRN -haldol 2mg q6hr PRN -ativan 0.5mg BID PRN #Seizure Disorder Stable. -home zonesamide 200 qhs IV access: none Tubes/Drains: none DVT PPX: daily lovenox GI PPX: tums 500mg BID, pantoprazole 40mg morning, dulcolax 10mg suppository PRN, Anticipated Disposition: family meeting today at 3pm, will discuss with case management Goals of Care: FULL CODE Team Pager( Coverage 27/01): #[phone] PCP: NAKIA Cifuentes [phone] Bonnie Velásquez 10/14/2017 Pager [phone] * Plan of Care - Lori Ordaz RN - 10/14/2017 6:33 AM EDT Problem: Patient Care Overview Goal: Plan of Care Review Outcome: Ongoing (Interventions Implemented as Appropriate) 10/14/17 0631 Plan of Care Review Progress no change OUTCOME EVALUATION NOTE: ?? OUTCOME SUMMARY: ?? Pt was intermittently yelling out at the beginning of the shift. PRN pain meds provided with good relief. Pt later slept well between care, awakenings minimized. No acute events overnight. See doc flowsheet for full pt assessment. Caregiver at the bedside. Call morris within reach. VSS. Will continueto monitor. ?? PLAN MOVING FORWARD: ?? Pain management, improve mobility, d/c planning ?? INDIVIDUALIZED FALL PREVENTION INTERVENTIONS: ?? Patient-specific fall risk factors per assessment: [current deficits]: Hospital environment, narcotics, pain, impaired mobility, blindness ?? Assistance [level of assistance required for transfers and ambulation]: 2 assist w/ FWW ?? Supervision [direct monitoring required during toileting and ADLs]: Hands-on, eyes-on ?? Surveillance [continuous indirect monitoring]: Pt declines masimo, hourly rounding ?? Patient-specific fall prevention interventions for sensory deficits provided, if applicable: [X] Yes -bed alarm ? * Plan of Care - Ren Walters OTA - 10/13/2017 3:08 PM EDT Occupational Therapy Treatment Note Pertinent History of Current Problem: (P) Pt is a 27 yo man with a history of resection of pituitary tumor, intraoperative hemorrhage and CVA, cognitive impairment, cortical blindness, partial L sided paralysis, seizure disorder, and panhypopituitarism (with DI, adrenal insufficiency, hypothyroidism, hypogonadism) here with a left acetabular fracture that occurred in the setting of a possible seizure. Precautions/Restrictions: (P) fall Precautions Comments: (P) L side weaker than R at baseline. Blind. Assessment: Pt was seen today for skilled OT. Session focussed on dressing, grooming and play activities. Pt began session well but began acting out more aggressively as the session went on. Pt wouldbe more aggressive and when it cam to unpreffered activities such as grooming or keeping his clothing on. Pt was redirectable somewhat back to task with extended time and ice chips. Next session willfocus on sitting EOB activities. Pt will benefit from ongoing therapeutic interventions to achieve pt's and therapy goals. Please refer to associated flowsheet data listed below for treatment sessiondetails. Staff Recommendations: Encourage OOB activity and participation in all self care tasks Anticipated Discharge Disposition: (P) half-way facility Pager: [phone] ZULMA Vargas 10/14/2017 Occupational Therapy Rehabilitation Department 10/13/17 1310 Rehab Evaluation Document Type therapy note (daily note) Total Evaluation Minutes, Occupational Therapy 90 Patient Effort adequate Symptoms Noted During/After Treatment fatigue (increased negative behaviors) General Information Patient Profile Review yes Patient/Family/Caregiver Comments/Observations I don't care, I'll bite you. General Observations of Patient pt resting inbed when therapy began Pertinent History of Current Problem Pt is a 27 yo man with a history of resection of pituitary tumor, intraoperative hemorrhage and CVA, cognitive impairment, cortical blindness, partial L sided paralysis, seizure disorder, and panhypopituitarism (with DI, adrenal insufficiency, hypothyroidism, hyp ogonadism) here with a left acetabular fracture that occurred in the setting of a possible seizure. Hearing Precautions/Limitations WNL Precautions/Restrictions fall Precautions Comments L side weaker than R at baseline. Blind. Limitations/Impairments safety/cognitive Treatment Number OT 8 Cognitive Assessment Interventions Behavior/Mood Observations (Cognitive) alert;agitated Follows Commands/Answers Questions (Cognitive) 50% of the time;needs cueing;needs repetition;needs increased time Personal Safety (Cognitive) severe impairment Bed Mobility Assessment/Treatment Assistive Device (Bed Mobility) bed rails [id number] [place] (Bed Mobility) minimum assist (75% patient effort);verbal cues required [id number] [place] (Bed Mobility) supervision required;verbal cues required Impairments (Bed Mobility) pain;flexibility decreased Comment (Bed Mobility) extended time required Transfer Assessment/Treatment [place] (Sit-Stand Transfers) moderate assist (50% patient effort) [place] (Stand-Sit Transfers) moderate assist (50% patient effort) Impairments (Transfers) flexibility decreased;strength decreased Comment (Transfers) pt able to show which leg is non-weight bearing but unable to maintain it today Bed-Chair [place] (Transfers) maximum assist (25% patient effort);verbal cues required Gop-Qykai-Ebi Assistive Device (Transfers) rolling walker Chair-Bed [place] (Transfers) maximum assist (25% patient effort);verbal cues required Gait Assessment/Treatment [place] (Gait) minimum assist (75% patient effort) Distance in Feet (Gait) 3ft Maintain Weight Bearing Status (Gait) cues to maintain weight bearing status;assist to maintain weight bearing status;unable to maintain weight bearing status Lower Body Dressing Assessment/Training Position (LB Dressing) (supine in bed) [place] Level (LB Dressing) minimum assist (75% patient effort) Impairments (LB Dressing) vision impaired;flexibility decreased Comment (LB Dressing) to don pants, min A to thread L feet in Grooming Assessment/Training Position (Grooming) sitting (in WC) [place] Level (Grooming) set up required;verbal cues required (extended time) Comment (Grooming) to wash face and arms Bathing Goal Bathing Goal, Time to Achieve 2 wks Bathing Goal, Activity Type Pt will be able to sustain sitting eob with supervision and complete UBbathing with min A /p set-up, and with verbal cues. Bathing Goal, Outcome goal ongoing Eating Self-Feeding Goal Eat Self Feeding Goal, Time to Achieve 2 wks Eat Self Feeding Goal, Activity Type Pt will be able to transfer to the chair with min A of 2 and use of a walker- to promote increased activity and improved positioning for task. Eat Self Feeding Goal, Outcome goal ongoing LB Dressing Goal LB Dressing Goal, Time to Achieve 2 wks LB Dressing Goal, Activity Type Pt will maintain weight bearing restrictions and be able to sustainstanding with 1 assist and walker as caregiver hikes pants to/from waist. LB Dressing Goal, Outcome goal ongoing Occupational Therapy Goal OT Goal, Time to Achieve 2 wks OT Goal, Activity Type Pt will tolerate sitting upright in chair for > 30 min for ther. activity/play task. OT Goal, Additional Goal Pt will tolerate >20 minutes of aerobic activity/UE exercise in order to increase general activity tolerance and performance in ADLs/IADLs. OT Goal, Outcome goal ongoing Clinical Impression Criteria for Skilled Therapeutic Interventions Met yes;treatment indicated Rehab Potential fair, will monitor progress closely Therapy Frequency 2-4 times/wk Anticipated Discharge Disposition half-way facility * Plan of Care - cEho Mccullough RN - 10/13/2017 2:44 PM EDT Problem: Patient Care Overview Goal: Plan of Care Review Outcome: Ongoing (Interventions Implemented as Appropriate) 10/13/17 0538 10/13/17 0915 Coping/Psychosocial Plan Of Care Reviewed With -- patient Plan of Care Review Progress no change -- OUTCOME EVALUATION NOTE: OUTCOME SUMMARY: Pt intermittently agitated and yelling out throughout the shift. Up to wheelchair 2x-assist w/ walker. Pt refuses to wear Masimo on ear. Incontinent of urine x2 this shift. Caregiver remains at bedside. VSS. Will continue to moniotr. PLAN MOVING FORWARD: -[x]Pain Control -[x]Mobilize -[x]Re-direct PRN -[x]D/C planning INDIVIDUALIZED FALL PREVENTION: Fall Score: 85 Baseline mobility: independent Assistance: -2-3x-assist with walker Supervision: -[x]Hands-on for all transfers and ambulation -[]Eyes-on for all transfers and ambulation -[]Arms-Reach for all transfers and ambulation Surveillance: -[x]Bed Alarm/Chair Alarm -[x]Purposeful Rounding -[x]Team Care -[x]Bedside Nurse Knowledge Exchange -[x]Caregiver at bedside CPG OUTCOME EVALUATION: Goal: Individualization & Mutuality 09/18/17 1253 09/29/17 1939 10/07/17 1708 Individualization Patient Specific Preferences -- apple juice with meds -- Patient Specific Goals pain control, mobilize, D/C planning -- -- Patient Specific Interventions frequent incontinence care -- -- Mutuality/Individual Preferences What Anxieties, Fears or Concerns Do You Have About Your Health or Care? -- -- ISHAAN What Questions Do You Have About Your Health or Care? -- -- ISHAAN What Information Would Help Us Give You More Personalized Care? -- -- ISHAAN Goal: Fall Prevention-Safe Patient Handling 10/08/17 1805 10/13/17 0000 Restraint Interventions Safety Promotion/Fall Prevention -- activity supervised;fall prevention program maintained;nonskid shoes/slippers when out of bed;safety round/check completed Activity Activity Type -- activity adjusted per tolerance Activity Assistance Provided -- assistance, 2 people Assistive Device Utilized -- front-wheel walker Positioning Body Position -- independent Daily Care Interventions Self-Care Promotion independence encouraged -- [place] Fall Risk History of Falling -- 25 Secondary Diagnosis -- 15 Ambulatory Aids -- 15 Intravenous Therapy/Heparin/Saline Lock -- 20 Gait/Transferring -- 10 Mental Status -- 15 Score -- 100 OTHER [place] Fall Risk -- High Goal: Infection Control 10/13/17 0000 10/13/17 0915 Safety Interventions Isolation Precautions standard precautions maintained -- Infection Prevention environmental surveillance performed;personal protective equipment utilized;rest/sleep promoted;single patient room provided -- Coping Strategies Supportive Measures -- positive reinforcement provided Goal: Discharge Needs Assessment 09/08/17 0403 09/18/17 1250 09/29/17 1939 Discharge Needs Assessment Concerns To Be Addressed -- -- no discharge needs identified Readmission Within The Last 30 Days -- -- no previous admission in last 30 days Equipment Needed After Discharge -- other (see comments) (TBD) -- Discharge Facility/Level Of Care Needs -- -- -- Current Discharge Risk -- cognitively impaired;physical impairment -- Discharge Disposition -- still a patient -- Current Health Outpatient/Agency/Support Group Needs -- nursing home (specify) -- Anticipated Changes Related to Illness none -- -- Living Environment Transportation Available -- car (caregiver from nursing home) -- Activity/Self Care Review of Systems Equipment Currently Used at Home -- none -- 10/03/17 1654 Discharge Needs Assessment Concerns To Be Addressed -- Readmission Within The Last 30 Days -- Equipment Needed After Discharge -- Discharge Facility/Level Of Care Needs adult foster care/nursing home Current Discharge Risk -- Discharge Disposition -- Current Health Outpatient/Agency/Support Group Needs -- Anticipated Changes Related to Illness -- Living Environment Transportation Available -- Activity/Self Care Review of Systems Equipment Currently Used at Home -- Goal: Interdisciplinary Rounds/Family Conf 10/10/17 4269 Interdisciplinary Rounds/Family Conf Participants family;nursing;patient;physician;shoe caser (caregiver) Problem: Skin Integrity Impairment, Risk/Actual (Adult) Goal: Skin Integrity/Wound Healing Patient will demonstrate the desired outcomes by discharge/transition of care. 10/12/17 7894 Skin Integrity Impairment, Risk/Actual (Adult) Skin Integrity/Wound Healing making progress toward outcome * Plan of Care - Lori Ordaz RN - 10/13/2017 5:43 AM EDT Problem: Patient Care Overview Goal: Plan of Care Review Outcome: Ongoing (Interventions Implemented as Appropriate) 10/13/17 0538 Coping/Psychosocial Plan Of Care Reviewed With patient Plan of Care Review Progress no change OUTCOME EVALUATION NOTE: OUTCOME SUMMARY: Pt was intermittently yelling out at the beginning of the shift. PRN meds provided by previous RN. Pt later slept between care. No acute events overnight. See doc flowsheet for full pt assessment. Caregiver at the bedside. Call morris within reach. VSS. Will continue to monitor. PLAN MOVING FORWARD: Pain management, improve mobility, d/c planning INDIVIDUALIZED FALL PREVENTION INTERVENTIONS: Patient-specific fall risk factors per assessment: [current deficits]: Hospital environment, narcotics, pain, impaired mobility, blindness Assistance [level of assistance required for transfers and ambulation]: 2 assist w/ FWW Supervision [direct monitoring required during toileting and ADLs]: Hands-on, eyes-on Surveillance [continuous indirect monitoring]: Pt declines masimo, hourly rounding Patient-specific fall prevention interventions for sensory deficits provided, if applicable: [X] Yes -bed alarm * Plan of Care - Echo Mccullough RN - 10/12/2017 5:03 PM EDT Problem: Patient Care Overview Goal: Plan of Care Review Outcome: Ongoing (Interventions Implemented as Appropriate) 10/12/17 0345 10/12/17 1005 Coping/Psychosocial Plan Of Care Reviewed With -- patient;caregiver Plan of Care Review Progress improving -- OUTCOME EVALUATION NOTE: OUTCOME SUMMARY: Pt intermittently agitated and yelling out throughout the shift. PRN dilaudid given for pain. Up towheelchair 3x-max assist w/ walker. Pt refuses to wear Masimo on ear. Incontinent of urine x2 this shift. Caregiver remains at bedside. VSS. Will continue to moniotr. PLAN MOVING FORWARD: -[x]Pain Control -[x]Mobilize -[x]D/C planning INDIVIDUALIZED FALL PREVENTION: Fall Score: 95 Assistance: -2-3x-assist with walker Supervision: -[x]Hands-on for all transfers and ambulation -[]Eyes-on for all transfers and ambulation -[]Arms-Reach for all transfers and ambulation Surveillance: -[x]Bed Alarm/Chair Alarm -[x]Purposeful Rounding -[x]Team Care -[x]Bedside Nurse Knowledge Exchange CPG OUTCOME EVALUATION: Goal: Individualization & Mutuality 09/18/17 1253 09/29/17193810/07/171707 Individualization Patient Specific Preferences -- apple juice with meds -- Patient Specific Goals pain control, mobilize, D/C planning -- -- Patient Specific Interventions frequent incontinence care -- -- Mutuality/Individual Preferences What Anxieties, Fears or Concerns Do You Have About Your Health or Care? -- -- ISHAAN What Questions Do You Have About Your Health or Care? -- -- ISHAAN What Information Would Help Us Give You More Personalized Care? -- -- ISHAAN Goal: Fall Prevention-Safe Patient Handling 10/08/17 1805 10/12/17 1005 10/12/17 1140 Restraint Interventions Safety Promotion/Fall Prevention -- activity supervised;fall prevention program maintained;nonskid shoes/slippers when out of bed -- Activity Activity Type -- step/march in place -- Activity Assistance Provided -- -- assistance, 3 or more people Assistive Device Utilized -- front-wheel walker -- Positioning Body Position -- -- up in chair Daily Care Interventions Self-Care Promotion independence encouraged -- -- [place] Fall Risk History of Falling -- 25 -- Secondary Diagnosis -- 15 -- Ambulatory Aids -- 15 -- Intravenous Therapy/Heparin/Saline Lock -- 0 -- Gait/Transferring -- 10 -- Mental Status -- 15 -- Score -- 80 -- OTHER [place] Fall Risk -- High -- Goal: Infection Control 10/12/17 1005 Safety Interventions Isolation Precautions standard precautions maintained Infection Prevention rest/sleep promoted;environmental surveillance performed Coping Strategies Supportive Measures positive reinforcement provided;self-care encouraged Goal: Discharge Needs Assessment 09/08/17 0403 09/18/17 1250 03/26/18 1939 Discharge Needs Assessment Concerns To Be Addressed -- -- no discharge needs identified Readmission Within The Last 30 Days -- -- no previous admission in last 30 days Equipment Needed After Discharge -- other (see comments) (TBD) -- Discharge Facility/Level Of Care Needs -- -- -- Current Discharge Risk -- cognitively impaired;physical impairment -- Discharge Disposition -- still a patient -- Current Health Outpatient/Agency/Support Group Needs -- nursing home (specify) -- Anticipated Changes Related to Illness none -- -- Living Environment Transportation Available -- car (caregiver from nursing home) -- Activity/Self Care Review of Systems Equipment Currently Used at Home -- none -- 10/03/17 1654 Discharge Needs Assessment Concerns To Be Addressed -- Readmission Within The Last 30 Days -- Equipment Needed After Discharge -- Discharge Facility/Level Of Care Needs adult foster care/nursing home Current Discharge Risk -- Discharge Disposition -- Current Health Outpatient/Agency/Support Group Needs -- Anticipated Changes Related to Illness -- Living Environment Transportation Available -- Activity/Self Care Review of Systems Equipment Currently Used at Home -- Goal: Interdisciplinary Rounds/Family Conf 10/10/17 1735 Interdisciplinary Rounds/Family Conf Participants family;nursing;patient;physician;shoe caser (caregiver) Problem: Skin Integrity Impairment, Risk/Actual (Adult) Goal: Skin Integrity/Wound Healing Patient will demonstrate the desired outcomes by discharge/transition of care. 10/12/17 0344 Skin Integrity Impairment, Risk/Actual (Adult) Skin Integrity/Wound Healing making progress toward outcome * Plan of Care - Crista Diaz RN - 10/12/2017 3:47 AM EDT Problem: Patient Care Overview Goal: Plan of Care Review Outcome: Ongoing (Interventions Implemented as Appropriate) 10/12/17 0345 Coping/Psychosocial Plan Of Care Reviewed With patient Plan of Care Review Progress improving OUTCOME EVALUATION NOTE: OUTCOME SUMMARY: Pt progressing towards d/c goals appropriately. Pt transferred from wheel chair to bed using FWW & 2 Person assist tonight. Pt had minimal episodes of hollering/restlessness throughout night. Appearing to be sleeping comfortably. 1 episode of incontinence. Will continue to monitor. PLAN MOVING FORWARD: Mobilization. D/C Planning. INDIVIDUALIZED FALL PREVENTION INTERVENTIONS: Patient-specific fall risk factors per assessment: [current deficits]: Generalized weakness. Hx of vision impairment. Hospital environment. Assistance [level of assistance required for transfers and ambulation]: 2 Assist, FWW Supervision [direct monitoring required during toileting and ADLs]: 1-2 Assist Surveillance [continuous indirect monitoring]: Hourly rounding. Caregiver at bedside 27/01 Patient-specific fall prevention interventions for sensory deficits provided, if applicable: [X] Yes - Bed alarm * Plan of Care - Radha Benitez RN - 10/11/2017 3:12 PM EDT Problem: Patient Care Overview Goal: Plan of Care Review OUTCOME EVALUATION NOTE: OUTCOME SUMMARY: Pt. Was calm this AM. Pt. Was intermittently agitated throughout much of the shift. Pt. Cooperativewith care. Pt's caregiver took pt. Out of the room in the wheelchair for a half hour this AM. Pt. Assisted to use commode/toilet/urinal intermittently throughout shift. Pt's fluid restriction changedper MD order based on Na+ labs. Plan of care changed relayed to pt's caregiver. Pt. Has several scabs around his body; small non-draining open area on L second toe. No signs or symptoms of acute distress at this time. Will continue to monitor. 1845 Pt. Ate multiple snacks throughout the afternoon. PRN ativan and haldol given (see MAR) for agitation with no effect. Caregiver remains at bedside. Will continue to monitor. PLAN MOVING FORWARD: Pain control, monitor electrolytes, promote pt. Safety, promote bowel/bladder elimination, d/c planning INDIVIDUALIZED FALL PREVENTION INTERVENTIONS: Patient-specific fall risk factors per assessment: [current deficits]: Developmental delay, narcotics, deconditioning Assistance [level of assistance required for transfers and ambulation]: 2 people, wheelchair, intermittent use of FWW Supervision [direct monitoring required during toileting and ADLs]: Hands on, eyes on Surveillance [continuous indirect monitoring]: Hourly rounding, caregiver at bedside Patient-specific fall prevention interventions for sensory deficits provided, if applicable: [X] N/A CPG GOAL OUTCOME EVALUATION: * Plan of Care - Dayne Rm RN - 10/11/2017 2:09 AM EDT Problem: Patient Care Overview Goal: Plan of Care Review 10/09/17 1524 10/11/17 0154 Coping/Psychosocial Plan Of Care Reviewed With -- patient;caregiver Plan of Care Review Progress progress towards functional goals is fair -- OUTCOME EVALUATION NOTE: OUTCOME SUMMARY: Patient has been extremely anxious throughout the evening with a general inability to communicate needs or express if pain is present. Patient has continued to strike at some staff and is currently incontinent. Patient has been given anxiety medication, pain medication and sleep aid in hopes of cons olidation to wants. Patient is currently sleeping with instances of awakening and crying out. PLAN MOVING FORWARD: Patient will get placed in facility. Patient will be able to get out of room as this seems to be the main cause for their anxiety according to family. INDIVIDUALIZED FALL PREVENTION INTERVENTIONS: Patient-specific fall risk factors per assessment: [current deficits]: Hx of falls, decreased mentation, Recent surgery Assistance [level of assistance required for transfers and ambulation]: Patient currently requires 2 person to full assist in ambulation or transfer Supervision [direct monitoring required during toileting and ADLs]: Patient currently is incontinent and requires numerous bed changes Surveillance [continuous indirect monitoring]: Caregiver, Hourly rounds, Nursing communication. Patient-specific fall prevention interventions for sensory deficits provided, if applicable: [X] Yes CPG GOAL OUTCOME EVALUATION: * Plan of Care - Radha Benitez RN - 10/10/2017 6:02 PM EDT Problem: Patient Care Overview Goal: Plan of Care Review OUTCOME EVALUATION NOTE: OUTCOME SUMMARY: Pt. Rested between care this shift. Plan of care discussed with pt's caregiver and sister Bettina. made aware that Bettina requested to talk with him via phone today. Pain controlled with PRN pain meds (see MAR). Pt. Encouraged to stay awake more during the day so that he can sleep at night. RN discussed plan of care with CM. No signs or symptoms of acute distress at this time. Will continue to monitor. PLAN MOVING FORWARD: Pain control, safety, monitor electrolytes, d/c planning INDIVIDUALIZED FALL PREVENTION INTERVENTIONS: Patient-specific fall risk factors per assessment: [current deficits]: Developmental delay, hx. Of falling Assistance [level of assistance required for transfers and ambulation]: 2 people, wheelchair Supervision [direct monitoring required during toileting and ADLs]: Hands on, eyes on Surveillance [continuous indirect monitoring]: Hourly rounding, caregiver at the bedside Patient-specific fall prevention interventions for sensory deficits provided, if applicable: [X] N/A CPG GOAL OUTCOME EVALUATION: * Plan of Care - Dayne Rm RN - 10/10/2017 5:49 AM EDT Problem: Patient Care Overview Goal: Plan of Care Review Outcome: Ongoing (Interventions Implemented as Appropriate) 10/09/17 1524 10/09/17 1931 Coping/Psychosocial Plan Of Care Reviewed With -- patient;caregiver Plan of Care Review Progress progress towards functional goals is fair -- OUTCOME EVALUATION NOTE: OUTCOME SUMMARY: Patient had been voiding throughout shift with increase in urine output. Patient's Demopressin was held during day shift. Medication was given following information that sodium had climbed. Patient currently has decrease urine output, but patient has continued to have decreased attenuation. PLAN MOVING FORWARD: Patient will show adequate agitation, medication, and sodium levels INDIVIDUALIZED FALL PREVENTION INTERVENTIONS: Patient-specific fall risk factors per assessment: [current deficits]: Patient has HX of falls, recent surgery and decreased mental capacity Assistance [level of assistance required for transfers and ambulation]: Patient currently requires wheelchair, or two person assist with walker. Supervision [direct monitoring required during toileting and ADLs]: Patient currently is incontinent of urine and bowels Surveillance [continuous indirect monitoring]: Hourly rounds and Nursing communication Patient-specific fall prevention interventions for sensory deficits provided, if applicable: [X] Yes CPG GOAL OUTCOME EVALUATION: * Plan of Care - Kateryna Whitehead RN - 10/09/2017 3:30 PM EDT Problem: Patient Care Overview Goal: Plan of Care Review Outcome: Ongoing (Interventions Implemented as Appropriate) 10/09/17 1524 Coping/Psychosocial Plan Of Care Reviewed With patient;caregiver Plan of Care Review Progress progress towards functional goals is fair Goal: Fall Prevention-Safe Patient Handling Outcome: Ongoing (Interventions Implemented as Appropriate) 10/08/17 1805 10/09/17 1123 Restraint Interventions Safety Promotion/Fall Prevention -- activity supervised;fall prevention program maintained;safety round/check completed Activity Activity Type -- activity adjusted per tolerance Activity Assistance Provided -- assistance, 2 people Assistive Device Utilized -- wheelchair;front-wheel walker Positioning Body Position -- independent Daily Care Interventions Self-Care Promotion independence encouraged -- [place] Fall Risk History of Falling -- 25 Secondary Diagnosis -- 15 Ambulatory Aids -- 15 Intravenous Therapy/Heparin/Saline Lock -- 0 Gait/Transferring -- 20 Mental Status -- 15 Score -- 90 OTHER [place] Fall Risk -- High Goal: Infection Control Outcome: Ongoing (Interventions Implemented as Appropriate) 10/09/17 1119 10/09/17 1123 Safety Interventions Isolation Precautions -- standard precautions maintained Infection Prevention -- single patient room provided Coping Strategies Supportive Measures positive reinforcement provided -- Problem: Skin Integrity Impairment, Risk/Actual (Adult) Goal: Skin Integrity/Wound Healing Patient will demonstrate the desired outcomes by discharge/transition of care. Outcome: Ongoing (Interventions Implemented as Appropriate) 10/09/17 1524 Skin Integrity Impairment, Risk/Actual (Adult) Skin Integrity/Wound Healing making progress toward outcome OUTCOME EVALUATION NOTE: OUTCOME SUMMARY: VSS with pt on RA. When asked if pt is in pain pt gives short one word answers indicating no for pain. Pt has been agitated intermittently during shift, diversion interventions given and prn medications provided as needed. Incisions approximated with no drainage, sites pink with no swelling noted. Assisted pt to chair and to bedside commode earlier in shift, pt relies on a x2 assist with the walker. Pt remains incontinent, edna/hygiene care provided prn. Maintaining safety/fall preventions. 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, impaired mobility Assistance [level of assistance required for transfers and ambulation]: x2 assist with a walker Supervision [direct monitoring required during toileting and ADLs]: Pt dependent on staff Surveillance [continuous indirect monitoring]: Caregiver at bedside, hourly rounding by staff Patient-specific fall prevention interventions for sensory deficits provided, if applicable: [X] Yes CPG GOAL OUTCOME EVALUATION: Progressing * Plan of Care - Mukul Beaulieu RN - 10/09/2017 2:34 AM EDT Problem: Patient Care Overview Goal: Plan of Care Review Outcome: Ongoing (Interventions Implemented as Appropriate) 10/08/17180410/08/17 1847 Coping/Psychosocial Plan Of Care Reviewed With -- patient Plan of Care Review Progress no change -- OUTCOME EVALUATION NOTE: OUTCOME SUMMARY: Patient had multiple episodes of urinary incontinence this shift but did use the urinal occasionally when prompted. PRN haldol given with night time medications. Pt slept for part of shift, more thanin previous night shifts. Caregiver remains at bedside. 2.5L fluid restriction remains in place. PLAN MOVING FORWARD: Pain control Mobilize D/c planning INDIVIDUALIZED FALL PREVENTION: Patient is currently a high risk to Fall. Patient-specific fall risk factors per assessment: [current deficits]: Blind, Decreased comprehension of instruction, Pain, Medications, Hospital Environment. Assistance [level of assistance required for transfers and ambulation]: lift Supervision [direct monitoring required during toileting and ADLs]: 1-2A with ADL's Surveillance [continuous indirect monitoring]: Jeet, Purposeful Rounding, NKE Patient-specific fall prevention interventions for sensory deficits provided, if applicable: N/A CPG GOAL OUTCOME EVALUATION: * Plan of Care - Alanna Paulino RN - 10/08/2017 6:12 PM EDT Problem: Patient Care Overview Goal: Plan of Care Review Outcome: Ongoing (Interventions Implemented as Appropriate) 10/08/17 180 Coping/Psychosocial Plan Of Care Reviewed With patient Plan of Care Review Progress no change OUTCOME EVALUATION NOTE: OUTCOME SUMMARY: Patient tolerating PO diet. Patients pain treated with PRN medications, see MAR. Patient restless and agitated at end of the shift. Patients went down to rehab gym with OT today. Patients caregiver at bedside throughout the shift. Housekeeping cleaned bed and floor in patients room, while patient out of room. Bed alarm on to help maintain patient safety. Will continue to monitor. PLAN MOVING FORWARD: -Pain Control -Mobilize -Discharge planning INDIVIDUALIZED FALL PREVENTION: Fall Score: 75 - high Assistance: -two person - stand pivot to wheelchair Supervision: -Hands-on for all transfers and ambulation Surveillance: -Bed Alarm/Chair Alarm -Masimo -Purposeful Rounding -Team Care -Bedside Nurse Knowledge Exchange CPG OUTCOME EVALUATION: Goal: Fall Prevention-Safe Patient Handling Outcome: Ongoing (Interventions Implemented as Appropriate) 10/08/1784510/08/171804 Restraint Interventions Safety Promotion/Fall Prevention activity supervised;fall prevention program maintained;nonskid shoes/slippers when out of bed;safety round/check completed -- Activity Activity Type activity adjusted per tolerance -- Activity Assistance Provided -- assistance, 2 people Assistive Device Utilized -- wheelchair Positioning Body Position independent -- Daily Care Interventions Self-Care Promotion -- independence encouraged [place] Fall Risk History of Falling 25 -- Secondary Diagnosis 15 -- Ambulatory Aids 0 -- Intravenous Therapy/Heparin/Saline Lock 0 -- Gait/Transferring 20 -- Mental Status 15 -- Score 75 -- OTHER [place] Fall Risk High -- Goal: Infection Control Outcome: Ongoing (Interventions Implemented as Appropriate) 10/08/17845 Safety Interventions Isolation Precautions standard precautions maintained Infection Prevention environmental surveillance performed;rest/sleep promoted;single patient room provided Coping Strategies Supportive Measures active listening utilized;relaxation techniques promoted;self-care encouraged;verbalization of feelings encouraged Goal: Interdisciplinary Rounds/Family Conf Outcome: Ongoing (Interventions Implemented as Appropriate) 10/08/171804 Interdisciplinary Rounds/Family Conf Participants patient;nursing Problem: Skin Integrity Impairment, Risk/Actual (Adult) Goal: Skin Integrity/Wound Healing Patient will demonstrate the desired outcomes by discharge/transition of care. Outcome: Ongoing (Interventions Implemented as Appropriate) 10/08/171804 Skin Integrity Impairment, Risk/Actual (Adult) Skin Integrity/Wound Healing making progress toward outcome * Plan of Care - Mukul Beaulieu RN - 10/08/2017 3:21 AM EDT Problem: Patient Care Overview Goal: Plan of Care Review Outcome: Ongoing (Interventions Implemented as Appropriate) 10/07/17170710/07/172111 Coping/Psychosocial Plan Of Care Reviewed With -- patient Plan of Care Review Progress no change -- OUTCOME EVALUATION NOTE: OUTCOME SUMMARY: Pt awake, agitated and yelling out for most of night. PRN Dilaudid given, Haldol requested from pharmacy but was not sent; in the mean time, patient settled down slightly. Multiple episodes of urinary incontinence throughout the shift. 2.5 L fluid restriction remains in place. Will continue to monitor and help patient reach d/c goals. 0655: Haldol arrived, given. PLAN MOVING FORWARD: Pain control D/c planning INDIVIDUALIZED FALL PREVENTION: Patient is currently a high risk to Fall. Patient-specific fall risk factors per assessment: [current deficits]: Blind, Pain, Medications, Hospital Environment. Assistance [level of assistance required for transfers and ambulation]: 2A-lift Supervision [direct monitoring required during toileting and ADLs]: 1-2A with ADL's Surveillance [continuous indirect monitoring]: Jeet, Purposeful Rounding, NKE Patient-specific fall prevention interventions for sensory deficits provided, if applicable: N/A CPG GOAL OUTCOME EVALUATION: * Plan of Care - Alanna Paulino RN - 10/07/2017 5:19 PM EDT Problem: Patient Care Overview Goal: Plan of Care Review Outcome: Ongoing (Interventions Implemented as Appropriate) 10/07/171707 Coping/Psychosocial Plan Of Care Reviewed With patient Plan of Care Review Progress no change OUTCOME EVALUATION NOTE: OUTCOME SUMMARY: Patient tolerating PO diet. Patient incontinent of urine throughout the day. Bed alarm on to help maintain patient safety. board design engineer at bedside throughout the shift. Will continue to monitor. PLAN MOVING FORWARD: -Pain Control -Mobilize -Discharge planning INDIVIDUALIZED FALL PREVENTION: Fall Score: 75 - high Baseline mobility: up at mulu Supervision: -Hands-on for all transfers and ambulation Surveillance: -Bed Alarm/Chair Alarm -Masimo -Purposeful Rounding -Team Care -Bedside Nurse Knowledge Exchange CPG OUTCOME EVALUATION: Goal: Individualization & Mutuality Outcome: Ongoing (Interventions Implemented as Appropriate) 10/07/17 1708 Mutuality/Individual Preferences What Anxieties, Fears or Concerns Do You Have About Your Health or Care? ISHAAN What Questions Do You Have About Your Health or Care? ISHAAN What Information Would Help Us Give You More Personalized Care? ISHAAN Goal: Fall Prevention-Safe Patient Handling Outcome: Ongoing (Interventions Implemented as Appropriate) 10/07/17 1108 Restraint Interventions Safety Promotion/Fall Prevention activity supervised;fall prevention program maintained;nonskid shoes/slippers when out of bed;safety round/check completed Activity Activity Type activity adjusted per tolerance Positioning Body Position independent [place] Fall Risk History of Falling 25 Secondary Diagnosis 15 Ambulatory Aids 0 Intravenous Therapy/Heparin/Saline Lock 0 Gait/Transferring 20 Mental Status 15 Score 75 OTHER [place] Fall Risk High Goal: Infection Control Outcome: Ongoing (Interventions Implemented as Appropriate) 10/07/17 1108 Safety Interventions Isolation Precautions standard precautions maintained Infection Prevention environmental surveillance performed;rest/sleep promoted;single patient room provided Coping Strategies Supportive Measures relaxation techniques promoted;verbalization of feelings encouraged Goal: Interdisciplinary Rounds/Family Conf Outcome: Ongoing (Interventions Implemented as Appropriate) 10/07/17 1708 Interdisciplinary Rounds/Family Conf Participants patient;nursing Problem: Skin Integrity Impairment, Risk/Actual (Adult) Goal: Skin Integrity/Wound Healing Patient will demonstrate the desired outcomes by discharge/transition of care. Outcome: Ongoing (Interventions Implemented as Appropriate) 10/07/17 1708 Skin Integrity Impairment, Risk/Actual (Adult) Skin Integrity/Wound Healing making progress toward outcome * Plan of Care - Mukul Beaulieu RN - 10/07/2017 3:06 AM EDT Problem: Patient Care Overview Goal: Plan of Care Review Outcome: Ongoing (Interventions Implemented as Appropriate) 10/06/17 0206 10/06/17 2100 Coping/Psychosocial Plan Of Care Reviewed With -- patient Plan of Care Review Progress no change -- OUTCOME EVALUATION NOTE: OUTCOME SUMMARY: Patient progressing towards d/c goals appropriately at this time. Pt had 3 occurences of fecal incontinence this shift. Voiding in urinal with encouragement of caregiver. 2.5L fluid restriction maintained. Will continue to monitor and help patient reach d/c goals. PLAN MOVING FORWARD: Pain control Mobilize D/c planning INDIVIDUALIZED FALL PREVENTION: Patient is currently a high risk to Fall. Patient-specific fall risk factors per assessment: [current deficits]: Blind, Cognitive Impairment,Pain, Medications, Hospital Environment. Assistance [level of assistance required for transfers and ambulation]: 2A Supervision [direct monitoring required during toileting and ADLs]: 1-2A with ADL's Surveillance [continuous indirect monitoring]: Masimo, Purposeful Rounding, NKE Patient-specific fall prevention interventions for sensory deficits provided, if applicable: N/A CPG GOAL OUTCOME EVALUATION: * Plan of Care - Radha Benitez RN - 10/06/2017 5:12 PM EDT Problem: Patient Care Overview Goal: Plan of Care Review OUTCOME EVALUATION NOTE: OUTCOME SUMMARY: Pt. Slept until 1100. Pt. Became agitated this afternoon, yelling and throwing toys. Caregiver and RN assisted pt. To sit in the wheelchair this PM. Pt. Denies pain. Incontinence care provided as needed. Strict I&O's kept.; discussed plan with caregiver Lali. No signs or symptoms of acute distress at this time. Will continue to monitor pt. Caregiver remains at bedside. PLAN MOVING FORWARD: Pt. Safety, d/c planning INDIVIDUALIZED FALL PREVENTION INTERVENTIONS: Patient-specific fall risk factors per assessment: [current deficits]: Hx. Of falling, cognitive impairment Assistance [level of assistance required for transfers and ambulation]: 2 people for transfers, wheelchair for mobility Supervision [direct monitoring required during toileting and ADLs]: Total care Surveillance [continuous indirect monitoring]: Caregiver at bedside, hourly rounding Patient-specific fall prevention interventions for sensory deficits provided, if applicable: NA CPG GOAL OUTCOME EVALUATION: * Plan of Care - Lenore Yates RN - 10/06/2017 2:14 AM EDT Problem: Patient Care Overview Goal: Plan of Care Review Outcome: Ongoing (Interventions Implemented as Appropriate) 10/06/17 0206 Coping/Psychosocial Plan Of Care Reviewed With patient;caregiver Plan of Care Review Progress no change OUTCOME EVALUATION NOTE: OUTCOME SUMMARY: Pt sleeping intermittently throughout night, but mostly up and agitated as usual. PRN ativan given w/ little effect. Pt denies pain when asked. Continues to be incontinent, care provided prn. Incisions ZULMA and benign. Caregiver at bedside. Will continue to monitor. PLAN MOVING FORWARD: Mobilize D/C planning INDIVIDUALIZED FALL PREVENTION INTERVENTIONS: Patient-specific fall risk factors per assessment: [current deficits]: Impaired mobility Blindness Hospital environment Impaired cognition Assistance [level of assistance required for transfers and ambulation]: 2 assist w/ walker Supervision [direct monitoring required during toileting and ADLs]: Hands on Surveillance [continuous indirect monitoring]: Call morris Purposeful rounding Caregiver at bedside Patient-specific fall prevention interventions for sensory deficits provided, if applicable: [X] N/A CPG GOAL OUTCOME EVALUATION: * Plan of Care - Emerald Holguin RN - 10/05/2017 7:46 PM EDT Problem: Patient Care Overview Goal: Plan of Care Review Outcome: Ongoing (Interventions Implemented as Appropriate) 10/03/17 0510 10/05/17 0854 Coping/Psychosocial Plan Of Care Reviewed With -- patient;caregiver Plan of Care Review Progress no change -- OUTCOME EVALUATION NOTE: OUTCOME SUMMARY: Pt has been resting between care in the bed and wheelchair this shift. Pt was screaming inconsolably for most of the shift, all needs were addressed, did have periods of restfulness. Administered PRNDilaudid and Ativan, see MAR for details. Stand pivoting to the wheelchair and commode with 2 assist and FWW. Pt requires cueing to maintain NWB status. Encouraging PO fluid intake. Incontinent of urine x1. PRN Miralax and Senna administered for constipation with minimal effect, see doc flowsheet. PRN rectal supp administered with +effect, see doc flowsheet. Caregiver at bedside for most of the day. Sister and family at bedside this afternoon. Will continue to monitor. PLAN MOVING FORWARD: Comfort, pain control, d/c planning INDIVIDUALIZED FALL PREVENTION INTERVENTIONS: Patient-specific fall risk factors per assessment: [current deficits]: NWB status, cognitive impairment, poor judgment Assistance [level of assistance required for transfers and ambulation]: 2 assist, with FWW Supervision [direct monitoring required during toileting and ADLs]: Hands on Surveillance [continuous indirect monitoring]: Purposeful hourly rounding, caregiver at bedside CPG GOAL OUTCOME EVALUATION: Goal: Individualization & Mutuality Outcome: Ongoing (Interventions Implemented as Appropriate) 09/07/17 0504 09/18/17 1253 09/29/171938 Individualization Patient Specific Preferences -- -- apple juice with meds Patient Specific Goals -- pain control, mobilize, D/C planning -- Patient Specific Interventions -- frequent incontinence care -- Mutuality/Individual Preferences What Anxieties, Fears or Concerns Do You Have About Your Health or Care? ISHAAN -- -- What Questions Do You Have About Your Health or Care? ISHAAN -- -- What Information Would Help Us Give You More Personalized Care? ISHAAN -- -- Goal: Fall Prevention-Safe Patient Handling Outcome: Ongoing (Interventions Implemented as Appropriate) 10/05/17 0854 Restraint Interventions Safety Promotion/Fall Prevention activity supervised;fall prevention program maintained;muscle strengthening facilitated;nonskid shoes/slippers when out of bed;safety round/check completed Activity Activity Type activity adjusted per tolerance Activity Assistance Provided assistance, 2 people Assistive Device Utilized front-wheel walker Positioning Body Position independent Daily Care Interventions Self-Care Promotion independence encouraged;BADL personal objects within reach;BADL personal routines maintained [place] Fall Risk History of Falling 25 Secondary Diagnosis 15 Ambulatory Aids 15 Intravenous Therapy/Heparin/Saline Lock 20 Gait/Transferring 20 Mental Status 15 Score 110 OTHER [place] Fall Risk High Goal: Infection Control Outcome: Ongoing (Interventions Implemented as Appropriate) 10/05/17 0854 Safety Interventions Isolation Precautions standard precautions maintained Infection Prevention environmental surveillance performed;rest/sleep promoted;single patient room provided Coping Strategies Supportive Measures active listening utilized;positive reinforcement provided;relaxation techniquespromoted;verbalization of feelings encouraged Goal: Discharge Needs Assessment Outcome: Ongoing (Interventions Implemented as Appropriate) 09/08/17 0403 09/18/17 1250 09/29/171938 Discharge Needs Assessment Concerns To Be Addressed -- -- no discharge needs identified Readmission Within The Last 30 Days -- -- no previous admission in last 30 days Equipment Needed After Discharge -- other (see comments) (TBD) -- Discharge Facility/Level Of Care Needs -- -- -- Current Discharge Risk -- cognitively impaired;physical impairment -- Discharge Disposition -- still a patient -- Current Health Outpatient/Agency/Support Group Needs -- nursing home (specify) -- Anticipated Changes Related to Illness none -- -- Living Environment Transportation Available -- car (caregiver from nursing home) -- Activity/Self Care Review of Systems Equipment Currently Used at Home -- none -- 10/03/17 1654 Discharge Needs Assessment Concerns To Be Addressed -- Readmission Within The Last 30 Days -- Equipment Needed After Discharge -- Discharge Facility/Level Of Care Needs adult foster care/nursing home Current Discharge Risk -- Discharge Disposition -- Current Health Outpatient/Agency/Support Group Needs -- Anticipated Changes Related to Illness -- Living Environment Transportation Available -- Activity/Self Care Review of Systems Equipment Currently Used at Home -- Goal: Interdisciplinary Rounds/Family Conf Outcome: Ongoing (Interventions Implemented as Appropriate) 10/05/17 1806 Interdisciplinary Rounds/Family Conf Participants family;nursing;patient;physician * Plan of Care - Ismael Degroot RN - 10/05/2017 8:23 AM EDT Problem: Patient Care Overview Goal: Plan of Care Review Outcome: Ongoing (Interventions Implemented as Appropriate) 10/03/17 0510 10/03/17 0900 Coping/Psychosocial Plan Of Care Reviewed With -- patient;caregiver Plan of Care Review Progress no change -- OUTCOME EVALUATION NOTE: OUTCOME SUMMARY: Pt in his usual agitated state for first part of shift, fell asleep around 0030. Caregiver at bedside. Attempted to have BM in bedside commode but not successful. OOB with walker and two strong assist, pt unsteady on his feet and fairly uncooperative. Pt continues to be incontinent of urine in bed. PLAN MOVING FORWARD: Pain control, pt/staff safety, dc planning INDIVIDUALIZED FALL PREVENTION INTERVENTIONS: Patient-specific fall risk factors per assessment: [current deficits]: Blind, generalized weakness,L hip ORIF Assistance [level of assistance required for transfers and ambulation]: OOB with walker and two maxassist Supervision [direct monitoring required during toileting and ADLs]: One assist Surveillance [continuous indirect monitoring]: Hourly rounding, bedside caregiver Patient-specific fall prevention interventions for sensory deficits provided, if applicable: [X] Yes CPG GOAL OUTCOME EVALUATION: Goal: Individualization & Mutuality Outcome: Ongoing (Interventions Implemented as Appropriate) 09/07/17 0504 09/18/17 1253 09/29/171938 Individualization Patient Specific Preferences -- -- apple juice with meds Patient Specific Goals -- pain control, mobilize, D/C planning -- Patient Specific Interventions -- frequent incontinence care -- Mutuality/Individual Preferences What Anxieties, Fears or Concerns Do You Have About Your Health or Care? ISHAAN -- -- What Questions Do You Have About Your Health or Care? ISHAAN -- -- What Information Would Help Us Give You More Personalized Care? ISHAAN -- -- Goal: Fall Prevention-Safe Patient Handling Outcome: Ongoing (Interventions Implemented as Appropriate) 10/03/17 0910/04/172105 Restraint Interventions Safety Promotion/Fall Prevention activity supervised;fall prevention program maintained;nonskid shoes/slippers when out of bed -- Activity Activity Type -- activity adjusted per tolerance Activity Assistance Provided -- assistance, 2 people Assistive Device Utilized -- front-wheel walker Positioning Body Position -- independent Daily Care Interventions Self-Care Promotion independence encouraged;BADL personal objects within reach;BADL personal routines maintained -- [place] Fall Risk History of Falling -- 25 Secondary Diagnosis -- 15 Ambulatory Aids -- 15 Intravenous Therapy/Heparin/Saline Lock -- 0 Gait/Transferring -- 10 Mental Status -- 0 Score -- 65 OTHER [place] Fall Risk -- High Goal: Infection Control Outcome: Ongoing (Interventions Implemented as Appropriate) 10/03/17 09 Safety Interventions Isolation Precautions standard precautions maintained Infection Prevention environmental surveillance performed;rest/sleep promoted;single patient room provided Coping Strategies Supportive Measures positive reinforcement provided;relaxation techniques promoted;verbalization offeelings encouraged Goal: Discharge Needs Assessment Outcome: Ongoing (Interventions Implemented as Appropriate) 09/08/17 0403 09/18/17 1250 09/29/171938 Discharge Needs Assessment Concerns To Be Addressed -- -- no discharge needs identified Readmission Within The Last 30 Days -- -- no previous admission in last 30 days Equipment Needed After Discharge -- other (see comments) (TBD) -- Discharge Facility/Level Of Care Needs -- -- -- Current Discharge Risk -- cognitively impaired;physical impairment -- Discharge Disposition -- still a patient -- Current Health Outpatient/Agency/Support Group Needs -- nursing home (specify) -- Anticipated Changes Related to Illness none -- -- Living Environment Transportation Available -- car (caregiver from nursing home) -- Activity/Self Care Review of Systems Equipment Currently Used at Home -- none -- 10/03/17 1654 Discharge Needs Assessment Concerns To Be Addressed -- Readmission Within The Last 30 Days -- Equipment Needed After Discharge -- Discharge Facility/Level Of Care Needs adult foster care/nursing home Current Discharge Risk -- Discharge Disposition -- Current Health Outpatient/Agency/Support Group Needs -- Anticipated Changes Related to Illness -- Living Environment Transportation Available -- Activity/Self Care Review of Systems Equipment Currently Used at Home -- Goal: Interdisciplinary Rounds/Family Conf Outcome: Ongoing (Interventions Implemented as Appropriate) 10/03/17 1654 Interdisciplinary Rounds/Family Conf Participants patient;nursing;family;physical therapy;occupational therapy Problem: Skin Integrity Impairment, Risk/Actual (Adult) Goal: Skin Integrity/Wound Healing Patient will demonstrate the desired outcomes by discharge/transition of care. Outcome: Ongoing (Interventions Implemented as Appropriate) 10/03/17 0510 Skin Integrity Impairment, Risk/Actual (Adult) Skin Integrity/Wound Healing making progress toward outcome * Plan of Care - Pamela Mei RN - 10/04/2017 6:08 PM EDT OUTCOME EVALUATION NOTE: OUTCOME SUMMARY: Patient responding with one word answers intermittently this shift. Screaming throughout shift withmoments of restfulness. PRN dilaudid administered per order using FACES scale. Sodium level remainselevated. Q.8.H BMP's drawn per order. Incision ZULMA and well-approximated. Caregiver at bedside throughout shift. Patient incontinent of urine and frequent edna care/bed changes done. VSS. PLAN MOVING FORWARD: PT/OT, mobilize, pain control, skin surveillance INDIVIDUALIZED FALL PREVENTION INTERVENTIONS: Patient-specific fall risk factors per assessment: [current deficits]: Narcotics, tubing, generalized weakness, surgery Assistance [level of assistance required for transfers and ambulation]: 1-2 assist w/ FWW Supervision [direct monitoring required during toileting and ADLs]: Hands on w/ ADL's Surveillance [continuous indirect monitoring]: Purposeful Rounding and Bed Alarm Patient-specific fall prevention interventions for sensory deficits provided, if applicable: N/A CPG GOAL OUTCOME EVALUATION: Progress Problem: Patient Care Overview Goal: Plan of Care Review 10/03/17 0510 10/03/17 09 Coping/Psychosocial Plan Of Care Reviewed With -- patient;caregiver Plan of Care Review Progress no change -- Goal: Fall Prevention-Safe Patient Handling 10/03/17 0910/03/172147 Restraint Interventions Safety Promotion/Fall Prevention activity supervised;fall prevention program maintained;nonskid shoes/slippers when out of bed -- Activity Activity Type -- activity adjusted per tolerance;stand at bedside Activity Assistance Provided -- assistance, 1 person Assistive Device Utilized -- four-wheel walker Positioning Body Position -- independent Daily Care Interventions Self-Care Promotion independence encouraged;BADL personal objects within reach;BADL personal routines maintained -- [place] Fall Risk History of Falling -- 25 Secondary Diagnosis -- 15 Ambulatory Aids -- 15 Intravenous Therapy/Heparin/Saline Lock -- 20 Gait/Transferring -- 20 Mental Status -- 0 Score -- 95 OTHER [place] Fall Risk -- High Goal: Infection Control 10/03/17 09 Safety Interventions Isolation Precautions standard precautions maintained Infection Prevention environmental surveillance performed;rest/sleep promoted;single patient room provided Coping Strategies Supportive Measures positive reinforcement provided;relaxation techniques promoted;verbalization offeelings encouraged Goal: Discharge Needs Assessment 09/08/17 0403 09/18/17 1250 09/29/17 1939 Discharge Needs Assessment Concerns To Be Addressed -- -- no discharge needs identified Readmission Within The Last 30 Days -- -- no previous admission in last 30 days Equipment Needed After Discharge -- other (see comments) (TBD) -- Discharge Facility/Level Of Care Needs -- -- -- Current Discharge Risk -- cognitively impaired;physical impairment -- Discharge Disposition -- still a patient -- Current Health Outpatient/Agency/Support Group Needs -- nursing home (specify) -- Anticipated Changes Related to Illness none -- -- Living Environment Transportation Available -- car (caregiver from nursing home) -- Activity/Self Care Review of Systems Equipment Currently Used at Home -- none -- 10/03/17 1654 Discharge Needs Assessment Concerns To Be Addressed -- Readmission Within The Last 30 Days -- Equipment Needed After Discharge -- Discharge Facility/Level Of Care Needs adult foster care/nursing home Current Discharge Risk -- Discharge Disposition -- Current Health Outpatient/Agency/Support Group Needs -- Anticipated Changes Related to Illness -- Living Environment Transportation Available -- Activity/Self Care Review of Systems Equipment Currently Used at Home -- Problem: Skin Integrity Impairment, Risk/Actual (Adult) Goal: Skin Integrity/Wound Healing Patient will demonstrate the desired outcomes by discharge/transition of care. 10/03/17 0510 Skin Integrity Impairment, Risk/Actual (Adult) Skin Integrity/Wound Healing making progress toward outcome * Plan of Care - Ismael Degroot RN - 10/04/2017 8:35 AM EDT Problem: Patient Care Overview Goal: Plan of Care Review Outcome: Ongoing (Interventions Implemented as Appropriate) 10/03/17 0510 10/03/17 0900 Coping/Psychosocial Plan Of Care Reviewed With -- patient;caregiver Plan of Care Review Progress no change -- OUTCOME EVALUATION NOTE: OUTCOME SUMMARY: Pt continues to be extremely agitated, no real relief with scheduled Trazedone or Seraquil. Caregiver at bedside. Pt medicated with Dilaudid 6 mg po for perceived pain. Pt continues to be incontinentof urine in bed. PLAN MOVING FORWARD: Pt/staff safety, dc planning, pain control INDIVIDUALIZED FALL PREVENTION INTERVENTIONS: Patient-specific fall risk factors per assessment: [current deficits]: L hip ORIF, generalized weakness, blind, cognitive impairment Assistance [level of assistance required for transfers and ambulation]: OOB with walker and one-twoassist Supervision [direct monitoring required during toileting and ADLs]: One assist Surveillance [continuous indirect monitoring]: Jose, hourly rounding. Patient-specific fall prevention interventions for sensory deficits provided, if applicable: [X] Yes CPG GOAL OUTCOME EVALUATION: Goal: Individualization & Mutuality Outcome: Ongoing (Interventions Implemented as Appropriate) 09/07/17 0504 09/18/17 1253 09/29/17 1939 Individualization Patient Specific Preferences -- -- apple juice with meds Patient Specific Goals -- pain control, mobilize, D/C planning -- Patient Specific Interventions -- frequent incontinence care -- Mutuality/Individual Preferences What Anxieties, Fears or Concerns Do You Have About Your Health or Care? ISHAAN -- -- What Questions Do You Have About Your Health or Care? ISHAAN -- -- What Information Would Help Us Give You More Personalized Care? ISHAAN -- -- Goal: Fall Prevention-Safe Patient Handling Outcome: Ongoing (Interventions Implemented as Appropriate) 10/03/17 0910/03/178 Restraint Interventions Safety Promotion/Fall Prevention activity supervised;fall prevention program maintained;nonskid shoes/slippers when out of bed -- Activity Activity Type -- activity adjusted per tolerance;stand at bedside Activity Assistance Provided -- assistance, 1 person Assistive Device Utilized -- four-wheel walker Positioning Body Position -- independent Daily Care Interventions Self-Care Promotion independence encouraged;BADL personal objects within reach;BADL personal routines maintained -- [place] Fall Risk History of Falling -- 25 Secondary Diagnosis -- 15 Ambulatory Aids -- 15 Intravenous Therapy/Heparin/Saline Lock -- 20 Gait/Transferring -- 20 Mental Status -- 0 Score -- 95 OTHER [place] Fall Risk -- High Goal: Infection Control Outcome: Ongoing (Interventions Implemented as Appropriate) 10/03/17 09 Safety Interventions Isolation Precautions standard precautions maintained Infection Prevention environmental surveillance performed;rest/sleep promoted;single patient room provided Coping Strategies Supportive Measures positive reinforcement provided;relaxation techniques promoted;verbalization offeelings encouraged Goal: Discharge Needs Assessment Outcome: Ongoing (Interventions Implemented as Appropriate) 09/08/17 0403 09/18/17 1250 09/29/17 1939 Discharge Needs Assessment Concerns To Be Addressed -- -- no discharge needs identified Readmission Within The Last 30 Days -- -- no previous admission in last 30 days Equipment Needed After Discharge -- other (see comments) (TBD) -- Discharge Facility/Level Of Care Needs -- -- -- Current Discharge Risk -- cognitively impaired;physical impairment -- Discharge Disposition -- still a patient -- Current Health Outpatient/Agency/Support Group Needs -- nursing home (specify) -- Anticipated Changes Related to Illness none -- -- Living Environment Transportation Available -- car (caregiver from nursing home) -- Activity/Self Care Review of Systems Equipment Currently Used at Home -- none -- 10/03/17 1654 Discharge Needs Assessment Concerns To Be Addressed -- Readmission Within The Last 30 Days -- Equipment Needed After Discharge -- Discharge Facility/Level Of Care Needs adult foster care/nursing home Current Discharge Risk -- Discharge Disposition -- Current Health Outpatient/Agency/Support Group Needs -- Anticipated Changes Related to Illness -- Living Environment Transportation Available -- Activity/Self Care Review of Systems Equipment Currently Used at Home -- Goal: Interdisciplinary Rounds/Family Conf Outcome: Ongoing (Interventions Implemented as Appropriate) 10/03/17 1654 Interdisciplinary Rounds/Family Conf Participants patient;nursing;family;physical therapy;occupational therapy Problem: Skin Integrity Impairment, Risk/Actual (Adult) Goal: Skin Integrity/Wound Healing Patient will demonstrate the desired outcomes by discharge/transition of care. Outcome: Ongoing (Interventions Implemented as Appropriate) 10/03/17 0510 Skin Integrity Impairment, Risk/Actual (Adult) Skin Integrity/Wound Healing making progress toward outcome * Plan of Care - Emerald Holguin RN - 10/03/2017 5:41 PM EDT Problem: Patient Care Overview Goal: Plan of Care Review Outcome: Ongoing (Interventions Implemented as Appropriate) 10/03/17 0510 10/03/17 0900 Coping/Psychosocial Plan Of Care Reviewed With -- patient;caregiver Plan of Care Review Progress no change -- OUTCOME EVALUATION NOTE: OUTCOME SUMMARY: Pt has been resting between the bed and wheelchair this shift. Stand pivoting with 2 assist and thewalker. Pt requires cueing to maintain NWB compliance. Pain has been controlled with PRN Dilaudid, see MAR. Ativan administered x1 for agitation/restlessness. Eating and drinking adequately with assistance. Incontinent of urine x2 this shift, see doc flowsheet. Pt transferred to the commode to voidspontaneously x2, see doc flowsheet. No BM this shift. Caregiver at bedside offering minimal assistance. Will continue to monitor. PLAN MOVING FORWARD: Pain control, comfort, d/c planning INDIVIDUALIZED FALL PREVENTION INTERVENTIONS: Patient-specific fall risk factors per assessment: [current deficits]: NWB LLE, cognitive impairment, hospital environment Assistance [level of assistance required for transfers and ambulation]: 2 assist, stand pivot with FWW Supervision [direct monitoring required during toileting and ADLs]: Hands on Surveillance [continuous indirect monitoring]: Caregiver at bedside, purposeful hourly rounding CPG GOAL OUTCOME EVALUATION: Goal: Individualization & Mutuality Outcome: Ongoing (Interventions Implemented as Appropriate) 09/07/17 0504 09/18/[id number]/29/171938 Individualization Patient Specific Preferences -- -- apple juice with meds Patient Specific Goals -- pain control, mobilize, D/C planning -- Patient Specific Interventions -- frequent incontinence care -- Mutuality/Individual Preferences What Anxieties, Fears or Concerns Do You Have About Your Health or Care? ISHAAN -- -- What Questions Do You Have About Your Health or Care? ISHAAN -- -- What Information Would Help Us Give You More Personalized Care? ISHAAN -- -- Goal: Fall Prevention-Safe Patient Handling Outcome: Ongoing (Interventions Implemented as Appropriate) 10/02/1791710/03/17 09 Restraint Interventions Safety Promotion/Fall Prevention -- activity supervised;fall prevention program maintained;nonskid shoes/slippers when out of bed Activity Activity Type -- activity adjusted per tolerance Activity Assistance Provided assistance, 2 people -- Assistive Device Utilized front-wheel walker -- Positioning Body Position -- supine, head elevated;legs elevated Daily Care Interventions Self-Care Promotion -- independence encouraged;BADL personal objects within reach;BADL personal routines maintained [place] Fall Risk History of Falling -- 25 Secondary Diagnosis -- 15 Ambulatory Aids -- 15 Intravenous Therapy/Heparin/Saline Lock -- 0 Gait/Transferring -- 20 Mental Status -- 0 Score -- 75 OTHER [place] Fall Risk -- High Goal: Infection Control Outcome: Ongoing (Interventions Implemented as Appropriate) 10/03/17 09 Safety Interventions Isolation Precautions standard precautions maintained Infection Prevention environmental surveillance performed;rest/sleep promoted;single patient room provided Coping Strategies Supportive Measures positive reinforcement provided;relaxation techniques promoted;verbalization offeelings encouraged Goal: Discharge Needs Assessment Outcome: Ongoing (Interventions Implemented as Appropriate) 09/08/17 0403 09/18/[id number]/29/171938 Discharge Needs Assessment Concerns To Be Addressed -- -- no discharge needs identified Readmission Within The Last 30 Days -- -- no previous admission in last 30 days Equipment Needed After Discharge -- other (see comments) (TBD) -- Discharge Facility/Level Of Care Needs -- -- -- Current Discharge Risk -- cognitively impaired;physical impairment -- Discharge Disposition -- still a patient -- Current Health Outpatient/Agency/Support Group Needs -- nursing home (specify) -- Anticipated Changes Related to Illness none -- -- Living Environment Transportation Available -- car (caregiver from nursing home) -- Activity/Self Care Review of Systems Equipment Currently Used at Home -- none -- 10/03/17 1654 Discharge Needs Assessment Concerns To Be Addressed -- Readmission Within The Last 30 Days -- Equipment Needed After Discharge -- Discharge Facility/Level Of Care Needs adult foster care/nursing home Current Discharge Risk -- Discharge Disposition -- Current Health Outpatient/Agency/Support Group Needs -- Anticipated Changes Related to Illness -- Living Environment Transportation Available -- Activity/Self Care Review of Systems Equipment Currently Used at Home -- Goal: Interdisciplinary Rounds/Family Conf Outcome: Ongoing (Interventions Implemented as Appropriate) 10/03/17 1654 Interdisciplinary Rounds/Family Conf Participants patient;nursing;family;physical therapy;occupational therapy * Plan of Care - Ren Walters OTA - 10/03/2017 3:10 PM EDT Occupational Therapy Treatment Note Pertinent History of Current Problem: (P) Pt is a 27 yo man with a history of resection of pituitary tumor, intraoperative hemorrhage and CVA, cognitive impairment, cortical blindness, partial L sided paralysis, seizure disorder, and panhypopituitarism (with DI, adrenal insufficiency, hypothyroidism, hypogonadism) here with a left acetabular fracture that occurred in the setting of a possible seizure. Precautions/Restrictions: (P) fall, weight bearing Precautions Comments: (P) L side weaker than R at baseline. Blind. Assessment: Pt was seen today for skilled OT. Excellent session today with pt able to participate in beach ball toss and catch and volley ball while sitting in WC. Pt was engaged in play and for 20+ min. Pt did present fatigued and tired, yawning repeatedly through out session. Pt was able to correctly identify his NWB leg and maintained his precaution for WC to bed transfer. Next session will continue to focus on pt maintaining precautions and toileting goals. Pt will benefit from ongoing therapeutic interventions to achieve pt's and therapy goals. Please refer to associated flowsheet data listed below for treatment session details. Staff Recommendations: Encourage OOB activity and participation in all self care tasks Anticipated Discharge Disposition: (P) half-way facility Pager: [phone] ZULMA Vargas 10/04/2017 Occupational Therapy Rehabilitation Department 10/03/17 1010 Rehab Evaluation Document Type therapy note (daily note) Total Evaluation Minutes, Occupational Therapy 45 Patient Effort good Symptoms Noted During/After Treatment fatigue General Information Patient Profile Review yes Patient/Family/Caregiver Comments/Observations He hasn't slept in like 34 hrs. Per caregiver General Observations of Patient Pt sitting in WC when therapy began Pertinent History of Current Problem Pt is a 27 yo man with a history of resection of pituitary tumor, intraoperative hemorrhage and CVA, cognitive impairment, cortical blindness, partial L sided paralysis, seizure disorder, and panhypopituitarism (with DI, adrenal insufficiency, hypothyroidism, hyp ogonadism) here with a left acetabular fracture that occurred in the setting of a possible seizure. Hearing Precautions/Limitations WNL Precautions/Restrictions fall;weight bearing Precautions Comments L side weaker than R at baseline. Blind. Limitations/Impairments safety/cognitive Treatment Number OT 7 Left Lower Extremity (Weight Bearing Status) nonweight bearing Cognitive Assessment Interventions Behavior/Mood Observations (Cognitive) alert;cooperative Follows Commands/Answers Questions (Cognitive) 100% of the time;needs increased time;needs repetition Pain Scale/Rating Pain Assessment Scale Faces (Roberson-Carter FACES Pain Rating Scale) Pain Level 7 Weight-Bearing Status Extremity Weight Bearing Status left lower extremity Bed Mobility Assessment/Treatment [id number]-[id number] [place] (Bed Mobility) minimum assist (75% patient effort);verbal cues required Impairments (Bed Mobility) pain;ROM (range of motion) decreased Transfer Assessment/Treatment [place] (Sit-Stand Transfers) moderate assist (50% patient effort);verbal cues required Comment (Transfers) Pt able to maintain WB precautions Man-Azbkz-Xxs Assistive Device (Transfers) rolling walker Chair-Bed [place] (Transfers) moderate assist (50% patient effort);verbal cues required Occupational Therapy Goal OT Goal, Time to Achieve 2 wks OT Goal, Activity Type Pt will tolerate sitting upright in chair for > 30 min for ther. activity/play task. OT Goal, Outcome goal ongoing Clinical Impression Criteria for Skilled Therapeutic Interventions Met yes;treatment indicated Rehab Potential fair, will monitor progress closely Therapy Frequency 2-4 times/wk Anticipated Discharge Disposition half-way facility * Plan of Care - [place] Forman RN - 10/03/2017 5:17 AM EDT Problem: Patient Care Overview Goal: Plan of Care Review Outcome: Ongoing (Interventions Implemented as Appropriate) 10/03/17 0510 Coping/Psychosocial Plan Of Care Reviewed With patient Plan of Care Review Progress no change OUTCOME EVALUATION NOTE: OUTCOME SUMMARY: Patient up for most of night, slept intermittenly for short periods of time. PRN haldol given at beginning of shift for agitation, ativan given by previous nurse to no effect. Frequent incontinence care provided. Linens changed but removed by pt. Sister at bedside all night. All incisions ZULMA and benign. Will continue to monitor and help patient reach d/c goals. PLAN MOVING FORWARD: Pain control Mobilize D/c planning INDIVIDUALIZED FALL PREVENTION: Patient is currently a high risk to Fall. Patient educated on bed/chair alarm, demonstrates proper use of call morris and verbalizes understanding of fall preventions implemented. Patient-specific fall risk factors per assessment: [current deficits]: Blindness, Cognitive Impairment, Pain, Medications, Hospital Environment. Assistance [level of assistance required for transfers and ambulation]: Two assist stand/pivot Supervision [direct monitoring required during toileting and ADLs]: Total assistance with ADL's Surveillance [continuous indirect monitoring]: Purposeful Rounding, Bedside Report Patient-specific fall prevention interventions for sensory deficits provided, if applicable: [X] N/A CPG GOAL OUTCOME EVALUATION: Goal: Individualization & Mutuality Outcome: Ongoing (Interventions Implemented as Appropriate) 09/18/17 1253 Individualization Patient Specific Goals pain control, mobilize, D/C planning Patient Specific Interventions frequent incontinence care Goal: Fall Prevention-Safe Patient Handling Outcome: Ongoing (Interventions Implemented as Appropriate) 10/02/17 0918 10/02/17 2100 Restraint Interventions Safety Promotion/Fall Prevention -- activity supervised;fall prevention program maintained;safety round/check completed Activity Activity Type -- activity adjusted per tolerance Activity Assistance Provided assistance, 2 people -- Assistive Device Utilized front-wheel walker -- Positioning Body Position -- independent Daily Care Interventions Self-Care Promotion -- independence encouraged;BADL personal objects within reach;BADL personal routines maintained;safe use of adaptive equipment encouraged [place] Fall Risk History of Falling -- 25 Secondary Diagnosis -- 15 Ambulatory Aids -- 15 Intravenous Therapy/Heparin/Saline Lock -- 0 Gait/Transferring -- 10 Mental Status -- 0 Score -- 65 OTHER [place] Fall Risk -- High Goal: Infection Control Outcome: Ongoing (Interventions Implemented as Appropriate) 10/02/17 2100 Safety Interventions Isolation Precautions standard precautions maintained Infection Prevention single patient room provided;rest/sleep promoted;barrier precautions utilized Coping Strategies Supportive Measures active listening utilized;counseling provided;decision- making supported Goal: Discharge Needs Assessment Outcome: Ongoing (Interventions Implemented as Appropriate) 09/08/17 0403 09/18/17 1250 09/29/17 1939 Discharge Needs Assessment Concerns To Be Addressed -- -- no discharge needs identified Readmission Within The Last 30 Days -- -- no previous admission in last 30 days Equipment Needed After Discharge -- other (see comments) (TBD) -- Current Discharge Risk -- cognitively impaired;physical impairment -- Discharge Disposition -- still a patient -- Current Health Outpatient/Agency/Support Group Needs -- nursing home (specify) -- Anticipated Changes Related to Illness none -- -- Living Environment Transportation Available -- car (caregiver from nursing home) -- Activity/Self Care Review of Systems Equipment Currently Used at Home -- none -- Goal: Interdisciplinary Rounds/Family Conf Outcome: Ongoing (Interventions Implemented as Appropriate) 10/03/17 0510 Interdisciplinary Rounds/Family Conf Participants nursing;patient;family Problem: Skin Integrity Impairment, Risk/Actual (Adult) Goal: Skin Integrity/Wound Healing Patient will demonstrate the desired outcomes by discharge/transition of care. Outcome: Ongoing (Interventions Implemented as Appropriate) 10/03/17 0510 Skin Integrity Impairment, Risk/Actual (Adult) Skin Integrity/Wound Healing making progress toward outcome * Plan of Care - Eunice Lara RN - 10/02/2017 4:56 PM EDT Problem: Patient Care Overview Goal: Plan of Care Review Outcome: Ongoing (Interventions Implemented as Appropriate) 10/02/17 1650 Coping/Psychosocial Plan Of Care Reviewed With patient Plan of Care Review Progress no change OUTCOME EVALUATION NOTE: OUTCOME SUMMARY: Patient remains consistent in behavior throughout day with frequent outbursts of screaming, PRN pain medications given when indicated. Caregiver remains at bedside, frequently interacting with patient but patient continues to have frequent episodes of incontinence throughout day. Patient worked with PT and got up to wheelchair, wheeled around unit with caregiver which kept him calm for a period of time. Will continue to monitor and help patient reach d/c goals. PLAN MOVING FORWARD: Pain control Mobilize Manage agitation D/c planning INDIVIDUALIZED FALL PREVENTION: Patient is currently a high risk to Fall. Patient educated on bed/chair alarm, demonstrates proper use of call morris and verbalizes understanding of fall preventions implemented. Patient-specific fall risk factors per assessment: [current deficits]: Impaired mobilty, impaired cognition, unsteady gait , Pain, Medications, Hospital Environment. Assistance [level of assistance required for transfers and ambulation]: x2 assist FWW Supervision [direct monitoring required during toileting and ADLs]: x2 assistance with ADL's Surveillance [continuous indirect monitoring]: Caregiver at bedside, [place], Purposeful Rounding, Bedside Report Patient-specific fall prevention interventions for sensory deficits provided, if applicable: [X] No CPG GOAL OUTCOME EVALUATION: Goal: Individualization & Mutuality Outcome: Ongoing (Interventions Implemented as Appropriate) 09/18/17 1253 Individualization Patient Specific Goals pain control, mobilize, D/C planning Goal: Fall Prevention-Safe Patient Handling Outcome: Ongoing (Interventions Implemented as Appropriate) 09/25/17211510/02/17917 Restraint Interventions Safety Promotion/Fall Prevention -- activity supervised;fall prevention program maintained;nonskid shoes/slippers when out of bed;safety round/check completed Activity Activity Type -- activity adjusted per tolerance Activity Assistance Provided -- assistance, 2 people Assistive Device Utilized -- front-wheel walker Positioning Body Position -- independent Daily Care Interventions Self-Care Promotion independence encouraged;BADL personal objects within reach;BADL personal routines maintained;safe use of adaptive equipment encouraged -- [place] Fall Risk History of Falling -- 25 Secondary Diagnosis -- 15 Ambulatory Aids -- 15 Intravenous Therapy/Heparin/Saline Lock -- 0 Gait/Transferring -- 10 Mental Status -- 15 Score -- 80 OTHER [place] Fall Risk -- High Goal: Infection Control Outcome: Ongoing (Interventions Implemented as Appropriate) 10/02/17 09 Safety Interventions Isolation Precautions standard precautions maintained Infection Prevention environmental surveillance performed;rest/sleep promoted;single patient room provided Coping Strategies Supportive Measures active listening utilized;goal setting facilitated;self-care encouraged;verbalization of feelings encouraged Goal: Discharge Needs Assessment Outcome: Ongoing (Interventions Implemented as Appropriate) 09/08/17 0403 09/18/17 1250 09/29/17 1939 Discharge Needs Assessment Concerns To Be Addressed -- -- no discharge needs identified Readmission Within The Last 30 Days -- -- no previous admission in last 30 days Equipment Needed After Discharge -- other (see comments) (TBD) -- Current Discharge Risk -- cognitively impaired;physical impairment -- Discharge Disposition -- still a patient -- Current Health Outpatient/Agency/Support Group Needs -- nursing home (specify) -- Anticipated Changes Related to Illness none -- -- Living Environment Transportation Available -- car (caregiver from nursing home) -- Activity/Self Care Review of Systems Equipment Currently Used at Home -- none -- Goal: Interdisciplinary Rounds/Family Conf Outcome: Ongoing (Interventions Implemented as Appropriate) 10/01/171815 Interdisciplinary Rounds/Family Conf Participants nursing;physical therapy;patient (caregiver) Problem: Skin Integrity Impairment, Risk/Actual (Adult) Goal: Skin Integrity/Wound Healing Patient will demonstrate the desired outcomes by discharge/transition of care. Outcome: Ongoing (Interventions Implemented as Appropriate) 10/02/17 1650 Skin Integrity Impairment, Risk/Actual (Adult) Skin Integrity/Wound Healing making progress toward outcome * Plan of Care - Juliet Leonardo RN - 10/02/2017 4:51 AM EDT Problem: Patient Care Overview Goal: Plan of Care Review Outcome: Ongoing (Interventions Implemented as Appropriate) 10/01/17181510/01/172029 Coping/Psychosocial Plan Of Care Reviewed With -- patient;caregiver Plan of Care Review Progress progress toward functional goals as expected -- OUTCOME EVALUATION NOTE: OUTCOME SUMMARY: Pt slept through most of night, no complaints of pain. Caregiver at bedside. PLAN MOVING FORWARD: Continue to medicate for pain and agitation as prescribed. Continue to encourage mobility. Notify team of changes. INDIVIDUALIZED FALL PREVENTION INTERVENTIONS: Patient-specific fall risk factors per assessment: [current deficits]: cognitive impairment, bilat LE weakness Assistance [level of assistance required for transfers and ambulation]: 1 assist, FWW Supervision [direct monitoring required during toileting and ADLs]: hands on Surveillance [continuous indirect monitoring]: Hourly rounding, caregiver at bedside Patient-specific fall prevention interventions for sensory deficits provided, if applicable: CPG GOAL OUTCOME EVALUATION: Goal: Fall Prevention-Safe Patient Handling Outcome: Ongoing (Interventions Implemented as Appropriate) 09/25/17211510/01/172029 Restraint Interventions Safety Promotion/Fall Prevention -- activity supervised;fall prevention program maintained;safety round/check completed;toileting scheduled Activity Activity Type -- ambulated in room Activity Assistance Provided -- assistance, 1 person Assistive Device Utilized -- front-wheel walker Positioning Body Position -- independent Daily Care Interventions Self-Care Promotion independence encouraged;BADL personal objects within reach;BADL personal routines maintained;safe use of adaptive equipment encouraged -- [place] Fall Risk History of Falling -- 25 Secondary Diagnosis -- 15 Ambulatory Aids -- 15 Intravenous Therapy/Heparin/Saline Lock -- 0 Gait/Transferring -- 10 Mental Status -- 15 Score -- 80 OTHER [place] Fall Risk -- High Goal: Infection Control Outcome: Ongoing (Interventions Implemented as Appropriate) 10/01/172029 Safety Interventions Isolation Precautions standard precautions maintained Infection Prevention rest/sleep promoted;barrier precautions utilized Coping Strategies Supportive Measures active listening utilized Problem: Skin Integrity Impairment, Risk/Actual (Adult) Goal: Skin Integrity/Wound Healing Patient will demonstrate the desired outcomes by discharge/transition of care. Outcome: Ongoing (Interventions Implemented as Appropriate) 10/02/17 0444 Skin Integrity Impairment, Risk/Actual (Adult) Skin Integrity/Wound Healing making progress toward outcome * Plan of Care - Kris Crawley - 10/01/2017 6:28 PM EDT Problem: Patient Care Overview Goal: Plan of Care Review Outcome: Ongoing (Interventions Implemented as Appropriate) 10/01/17 0900 10/01/17 181 Coping/Psychosocial Plan Of Care Reviewed With patient;caregiver -- Plan of Care Review Progress -- progress toward functional goals as expected OUTCOME EVALUATION NOTE: OUTCOME SUMMARY: Vital signs stable. Pain controled with PRN dilaudid. Pt out of bed to standing with walker multiple times. Incontinent of urine throughout shift. Pt did spike sepsis bundle at the end of shift when vitals were taken while yelling and kicking. Team made aware pt given ativan and vitals will be retaken by night nursing staff. PLAN MOVING FORWARD: Work with PT, discharge to rehab INDIVIDUALIZED FALL PREVENTION INTERVENTIONS: Patient-specific fall risk factors per assessment: [current deficits]: Cognitive impairments, left sided weakness Assistance [level of assistance required for transfers and ambulation]: 2 assist with walker Supervision [direct monitoring required during toileting and ADLs]: Caregiver present Surveillance [continuous indirect monitoring]: Safety rounds Patient-specific fall prevention interventions for sensory deficits provided, if applicable: [X] N/A CPG GOAL OUTCOME EVALUATION: ongoing Goal: Individualization & Mutuality Outcome: Ongoing (Interventions Implemented as Appropriate) 09/18/17125209/29/171938 Individualization Patient Specific Preferences -- apple juice with meds Patient Specific Goals pain control, mobilize, D/C planning -- Patient Specific Interventions frequent incontinence care -- Goal: Fall Prevention-Safe Patient Handling Outcome: Ongoing (Interventions Implemented as Appropriate) 09/25/17211509/30/17229910/01/17 0900 Restraint Interventions Safety Promotion/Fall Prevention -- -- activity supervised;safety round/check completed Activity Activity Type -- activity adjusted per tolerance -- Activity Assistance Provided -- assistance, 1 person -- Assistive Device Utilized -- front-wheel walker -- Daily Care Interventions Self-Care Promotion independence encouraged;BADL personal objects within reach;BADL personal routines maintained;safe use of adaptive equipment encouraged -- -- [place] Fall Risk History of Falling -- -- 0 Secondary Diagnosis -- -- 15 Ambulatory Aids -- -- 15 Intravenous Therapy/Heparin/Saline Lock -- -- 0 Gait/Transferring -- -- 10 Mental Status -- -- 15 Score -- -- 55 OTHER [place] Fall Risk -- -- High Goal: Infection Control Outcome: Ongoing (Interventions Implemented as Appropriate) 09/30/172299 Safety Interventions Isolation Precautions standard precautions maintained Infection Prevention rest/sleep promoted;single patient room provided Coping Strategies Supportive Measures relaxation techniques promoted Goal: Discharge Needs Assessment Outcome: Ongoing (Interventions Implemented as Appropriate) 09/08/17 0403 09/18/17124909/29/171938 Discharge Needs Assessment Concerns To Be Addressed -- -- no discharge needs identified Readmission Within The Last 30 Days -- -- no previous admission in last 30 days Equipment Needed After Discharge -- other (see comments) (TBD) -- Current Health Outpatient/Agency/Support Group Needs -- nursing home (specify) -- Anticipated Changes Related to Illness none -- -- Activity/Self Care Review of Systems Equipment Currently Used at Home -- none -- Goal: Interdisciplinary Rounds/Family Conf Outcome: Ongoing (Interventions Implemented as Appropriate) 10/01/17 1816 Interdisciplinary Rounds/Family Conf Participants nursing;physical therapy;patient (caregiver) * Plan of Care - Juliet Leonardo RN - 10/01/2017 3:53 AM EDT Problem: Patient Care Overview Goal: Plan of Care Review Outcome: Ongoing (Interventions Implemented as Appropriate) 09/29/17193809/30/17 230 Coping/Psychosocial Plan Of Care Reviewed With -- patient;caregiver Plan of Care Review Progress no change -- OUTCOME EVALUATION NOTE: OUTCOME SUMMARY: Pt in bed most of night, OOB as a stand pivot 2 assist to the commode x1. Pt able to sleep through most of night, given prn ativan x1 for agitation (see mar for details). PLAN MOVING FORWARD: Continue to encourage mobility, and medicate for pain and agitation as ordered. Will continue to monitor. INDIVIDUALIZED FALL PREVENTION INTERVENTIONS: Patient-specific fall risk factors per assessment: [current deficits]: Generalized weakness, cognitive impairment Assistance [level of assistance required for transfers and ambulation]: 2 assist, FWW Supervision [direct monitoring required during toileting and ADLs]: Hands on Surveillance [continuous indirect monitoring]: hourly rounding Patient-specific fall prevention interventions for sensory deficits provided, if applicable: CPG GOAL OUTCOME EVALUATION: Goal: Fall Prevention-Safe Patient Handling Outcome: Ongoing (Interventions Implemented as Appropriate) 09/25/17211509/30/17 230 Restraint Interventions Safety Promotion/Fall Prevention -- activity supervised;fall prevention program maintained;muscle strengthening facilitated;nonskid shoes/slippers when out of bed;safety round/check completed;toileting scheduled Activity Activity Type -- activity adjusted per tolerance Activity Assistance Provided -- assistance, 1 person Assistive Device Utilized -- front-wheel walker Positioning Body Position -- independent Daily Care Interventions Self-Care Promotion independence encouraged;BADL personal objects within reach;BADL personal routines maintained;safe use of adaptive equipment encouraged -- [place] Fall Risk History of Falling -- 25 Secondary Diagnosis -- 15 Ambulatory Aids -- 15 Intravenous Therapy/Heparin/Saline Lock -- 0 Gait/Transferring -- 20 Mental Status -- 15 Score -- 90 OTHER [place] Fall Risk -- High Goal: Infection Control Outcome: Ongoing (Interventions Implemented as Appropriate) 09/30/17 2300 Safety Interventions Isolation Precautions standard precautions maintained Infection Prevention rest/sleep promoted;single patient room provided Coping Strategies Supportive Measures relaxation techniques promoted Problem: Skin Integrity Impairment, Risk/Actual (Adult) Goal: Skin Integrity/Wound Healing Patient will demonstrate the desired outcomes by discharge/transition of care. Outcome: Ongoing (Interventions Implemented as Appropriate) 10/01/17 0341 Skin Integrity Impairment, Risk/Actual (Adult) Skin Integrity/Wound Healing making progress toward outcome * Plan of Care - Kaylin Adames 09/30/2017 7:43 PM EDT Problem: Patient Care Overview Goal: Plan of Care Review Outcome: Ongoing (Interventions Implemented as Appropriate) 09/29/17 1939 09/30/17 1110 Coping/Psychosocial Plan Of Care Reviewed With -- patient;caregiver Plan of Care Review Progress no change -- OUTCOME EVALUATION NOTE: OUTCOME SUMMARY: Pt vital signs stable. Pain management maintained. Pt worked with PT today. Caregiver at bedside. Agitated at times. PLAN MOVING FORWARD: Work with PT, pain management INDIVIDUALIZED FALL PREVENTION INTERVENTIONS: Patient-specific fall risk factors per assessment: [current deficits]: Hospital environment, disoriented, does not recognize limitations Assistance [level of assistance required for transfers and ambulation]: 1 to 2 assist with walker Supervision [direct monitoring required during toileting and ADLs]: Constant supervision Surveillance [continuous indirect monitoring]: Safety rounds Patient-specific fall prevention interventions for sensory deficits provided, if applicable: [X] Yes CPG GOAL OUTCOME EVALUATION: ongoing Goal: Individualization & Mutuality 09/18/17 1253 09/29/171938 Individualization Patient Specific Preferences -- apple juice with meds Patient Specific Goals pain control, mobilize, D/C planning -- Patient Specific Interventions frequent incontinence care -- Goal: Fall Prevention-Safe Patient Handling Outcome: Ongoing (Interventions Implemented as Appropriate) 09/25/176 09/29/17 2300 09/30/17 0945 Restraint Interventions Safety Promotion/Fall Prevention -- -- activity supervised;fall prevention program maintained;nonskid shoes/slippers when out of bed;safety round/check completed;toileting scheduled Activity Activity Type -- -- -- Activity Assistance Provided -- -- -- Assistive Device Utilized -- -- -- Positioning Body Position -- independent -- Daily Care Interventions Self-Care Promotion independence encouraged;BADL personal objects within reach;BADL personal routines maintained;safe use of adaptive equipment encouraged -- -- [place] Fall Risk History of Falling -- -- 25 Secondary Diagnosis -- -- 15 Ambulatory Aids -- -- 15 Intravenous Therapy/Heparin/Saline Lock -- -- 0 Gait/Transferring -- -- 20 Mental Status -- -- 15 Score -- -- 90 OTHER [place] Fall Risk -- -- High 09/30/17 1030 Restraint Interventions Safety Promotion/Fall Prevention -- Activity Activity Type stand at bedside (up to commode) Activity Assistance Provided assistance, 2 people Assistive Device Utilized standard walker Positioning Body Position -- Daily Care Interventions Self-Care Promotion -- [place] Fall Risk History of Falling -- Secondary Diagnosis -- Ambulatory Aids -- Intravenous Therapy/Heparin/Saline Lock -- Gait/Transferring -- Mental Status -- Score -- OTHER [place] Fall Risk -- Goal: Infection Control Outcome: Ongoing (Interventions Implemented as Appropriate) 09/29/17 1039 Safety Interventions Isolation Precautions standard precautions maintained Infection Prevention rest/sleep promoted;single patient room provided;equipment surfaces disinfected;environmental surveillance performed Coping Strategies Supportive Measures relaxation techniques promoted Goal: Discharge Needs Assessment Outcome: Ongoing (Interventions Implemented as Appropriate) 09/08/17 0403 09/18/17 1250 09/29/17 1939 Discharge Needs Assessment Concerns To Be Addressed -- -- no discharge needs identified Readmission Within The Last 30 Days -- -- no previous admission in last 30 days Equipment Needed After Discharge -- other (see comments) (TBD) -- Discharge Disposition -- still a patient -- Current Health Outpatient/Agency/Support Group Needs -- nursing home (specify) -- Anticipated Changes Related to Illness none -- -- Activity/Self Care Review of Systems Equipment Currently Used at Home -- none -- Goal: Interdisciplinary Rounds/Family Conf Outcome: Ongoing (Interventions Implemented as Appropriate) 09/29/17 1939 Interdisciplinary Rounds/Family Conf Participants patient;nursing Problem: Skin Integrity Impairment, Risk/Actual (Adult) Goal: Skin Integrity/Wound Healing Patient will demonstrate the desired outcomes by discharge/transition of care. Outcome: Ongoing (Interventions Implemented as Appropriate) 09/26/17 0515 Skin Integrity Impairment, Risk/Actual (Adult) Skin Integrity/Wound Healing making progress toward outcome * Plan of Care - Louis Doran PTA - 09/30/2017 11:10 AM EDT Physical Therapy Treatment Treatment Number PT: 6 Pertinent History of Current Problem: Pt is a 27 yo man with a history of resection of pituitary tumor, intraoperative hemorrhage and CVA, cognitive impairment, cortical blindness, partial L sided paralysis, seizure disorder, and panhypopituitarism (with DI, adrenal insufficiency, hypothyroidism, hy pogonadism) here with a left acetabular fracture that occurred in the setting of a possible seizure. Precautions/Restrictions: fall, weight bearing Precautions Comments: NWB L LE, L side weaker than R at baseline Assessment: Pt seen for functional mobility, strength, endurance and pt education. Pt demonstrated more alertness today, able to participate and follow cues better but continues to place L LE down intermittently when mobilizing, responded well to cues for NWB. Able to propel w/c short distances andturn but unable to perform any functional w/c mobility or steering tasks. Encourage out of bed to w/c throughout the day to progress mobility. Please see the flow sheet below for patient details and mobility. Pt would benefit from ongoing physical therapy interventions. Staff Mobility Recommendations: Stand pivot transfer with 2 assist and FWW LOUIS DORAN PTA Pager: [phone] Inpatient Physical Therapy 09/30/17 1117 Rehab Evaluation Document Type therapy note (daily note) Total Evaluation Minutes, Physical Therapy 40 (TE-F x 3) Patient Effort adequate Symptoms Noted During/After Treatment fatigue General Information Patient/Family/Caregiver Comments/Observations awesome, why? and no, why? regarding how he feels and if he has pain Pertinent History of Current Problem Pt is a 27 yo man with a history of resection of pituitary tumor, intraoperative hemorrhage and CVA, cognitive impairment, cortical blindness, partial L sided paralysis, seizure disorder, and panhypopituitarism (with DI, adrenal insufficiency, hypothyroidism, hyp ogonadism) here with a left acetabular fracture that occurred in the setting of a possible seizure. Precautions/Restrictions fall;weight bearing Precautions Comments NWB L LE, L side weaker than R at baseline Treatment Number PT 6 Pain Scale/Rating Pain Assessment Scale Faces (Roberson-Carter FACES Pain Rating Scale) Pain Level 2 Transfer Assessment/Treatment [place] (Sit-Stand Transfers) moderate assist (50% patient effort);2 person assist required [place] (Stand-Sit Transfers) moderate assist (50% patient effort);2 person assist required [id number] Assistive Device (Transfers) rolling walker [place] (Toilet Transfers) moderate assist (50% patient effort);2 person assist required Assistive Device (Toilet Transfers) bedside commode;rolling walker Maintain Weight Bearing Status (Transfers) cues to maintain weight bearing status Safety Issues (Transfers) balance decreased during turns;sequencing ability decreased Impairments (Transfers) balance impaired;postural control impaired;strength decreased;vision impaired Comment (Transfers) stand step transfer to and from commode and w/c, frequent cues provided Gait Assessment/Treatment [place] (Gait) minimum assist (75% patient effort);2 person assist required Assistive Device (Gait) (// bars) Distance in Feet (Gait) 10 ft x 2 Maintain Weight Bearing Status (Gait) cues to maintain weight bearing status Safety Issues (Gait) balance decreased during turns;sequencing ability decreased;step length decreased Impairments (Gait) balance impaired;postural control impaired;strength decreased;vision impaired Comment (Gait) Steady, w/c follow, cues to count the steps, fatigues quickly Wheelchair Training/Management Transfer Type (Wheelchair) stand pivot transfer Propulsion Training (Wheelchair) forward propulsion;turning wheelchair Propulsion Training Comment (Wheelchair) Able to slowly push forward and turn but not able to meaningfully navigate the w/c around obstacles Distance Propelled in Feet (Wheelchair) 15 ft, 20 ft Training Comment (Wheelchair) frequent cues required Safety Comment (Wheelchair) unable to steer to avoid objects/obstacles Therapeutic Exercise Comment (Therapeutic Exercise) long arc quads (assisted) Plan of Care Review Plan Of Care Reviewed With patient;caregiver Bed Mobility Goal Bed Mobility Goal, Date Established 09/09/17 Bed Mobility Goal, Time to Achieve by discharge Bed Mobility Goal, Activity Type all bed mobility activities Bed Mobility Goal, [place] Level moderate assist (50% patient effort) Bed Mobility Goal, Outcome Achieved goal ongoing Gait Training Goal Gait Training Goal, Date Established 09/09/17 Gait Training Goal, Time to Achieve by discharge Gait Training Goal, [place] Level minimum assist (75% patient effort) Gait Training Goal, Assist Device walker, rolling Gait Training Goal, Distance to Achieve 15 ft Gait Training Goal, Outcome goal ongoing Transfer Training Goal Transfer Training Goal, Date Established 09/09/17 Transfer Training Goal, Time to Achieve by discharge Transfer Training Goal, Activity Type aiv-ob-ftxcg/ktlkd-to-fil;yjx-wn-dbwyt/rkeon-qx-vyv Transfer Train Goal, [place] Level minimum assist (75% patient effort) Transfer Training Goal, Assist Device walker, rolling Transfer Training Goal, Outcome goal ongoing Physical Therapy Goal PT Goal, Date Established 09/09/17 PT Goal, Time to Achieve by discharge PT Goal, Activity Type Pt will propel self in w/c household distances PT Goal, [place] Level set up required;supervision required PT Goal, Outcome goal ongoing Clinical Impression Therapy Frequency 2-4 times/wk Anticipated Equipment Needs at Discharge front wheeled walker Anticipated Discharge Disposition half-way facility (could go to handicap accesible nursing home with assistance) * Plan of Care - Skyler Aviles RN - 09/30/2017 4:07 AM EDT Problem: Patient Care Overview Goal: Plan of Care Review 09/29/17 1939 09/29/17 2300 Coping/Psychosocial Plan Of Care Reviewed With -- patient Plan of Care Review Progress no change -- OUTCOME EVALUATION NOTE: OUTCOME SUMMARY: Pt up to commode during the night x3, voiding and had bm. Also incontinent of bm x1. Pt able to follow simple commands for moving etc. PLAN MOVING FORWARD: Mobilize as tolerated, safety for pt and staff. INDIVIDUALIZED FALL PREVENTION INTERVENTIONS: Patient-specific fall risk factors per assessment: [current deficits]: Impaired cognition and mobility Assistance [level of assistance required for transfers and ambulation]: 1-2 assist with bed mobility Supervision [direct monitoring required during toileting and ADLs]: Eyes on Surveillance [continuous indirect monitoring]: Purposeful rounding Patient-specific fall prevention interventions for sensory deficits provided, if applicable: [X] No CPG GOAL OUTCOME EVALUATION: Goal: Individualization & Mutuality 09/07/17 0504 09/18/17 1253 09/29/171938 Individualization Patient Specific Preferences -- -- apple juice with meds Patient Specific Goals -- pain control, mobilize, D/C planning -- Patient Specific Interventions -- frequent incontinence care -- Mutuality/Individual Preferences What Anxieties, Fears or Concerns Do You Have About Your Health or Care? ISHAAN -- -- What Questions Do You Have About Your Health or Care? ISHAAN -- -- What Information Would Help Us Give You More Personalized Care? ISHAAN -- -- Goal: Fall Prevention-Safe Patient Handling 09/25/17211509/29/17 10309/29/17 2300 Restraint Interventions Safety Promotion/Fall Prevention -- -- fall prevention program maintained Activity Activity Type -- -- activity adjusted per tolerance Activity Assistance Provided -- assistance, 2 people -- Assistive Device Utilized -- wheelchair -- Positioning Body Position -- -- independent Daily Care Interventions Self-Care Promotion independence encouraged;BADL personal objects within reach;BADL personal routines maintained;safe use of adaptive equipment encouraged -- -- [place] Fall Risk History of Falling -- -- 25 Secondary Diagnosis -- -- 15 Ambulatory Aids -- -- 0 Intravenous Therapy/Heparin/Saline Lock -- -- 0 Gait/Transferring -- -- 20 Mental Status -- -- 15 Score -- -- 75 OTHER [place] Fall Risk -- -- High Goal: Infection Control 09/29/17 103 Safety Interventions Isolation Precautions standard precautions maintained Infection Prevention rest/sleep promoted;single patient room provided;equipment surfaces disinfected;environmental surveillance performed Coping Strategies Supportive Measures relaxation techniques promoted Goal: Discharge Needs Assessment 09/08/17 0403 09/18/17 1250 09/29/171938 Discharge Needs Assessment Concerns To Be Addressed -- -- no discharge needs identified Readmission Within The Last 30 Days -- -- no previous admission in last 30 days Equipment Needed After Discharge -- other (see comments) (TBD) -- Current Discharge Risk -- cognitively impaired;physical impairment -- Discharge Disposition -- still a patient -- Current Health Outpatient/Agency/Support Group Needs -- nursing home (specify) -- Anticipated Changes Related to Illness none -- -- Living Environment Transportation Available -- car (caregiver from nursing home) -- Activity/Self Care Review of Systems Equipment Currently Used at Home -- none -- * Plan of Care - Lori Tolliver RN - 09/29/2017 7:45 PM EDT Problem: Patient Care Overview Goal: Plan of Care Review 09/29/171938 Coping/Psychosocial Plan Of Care Reviewed With patient Plan of Care Review Progress no change OUTCOME EVALUATION NOTE: OUTCOME SUMMARY: Patient ambulated to wheelchair with nursing and back to bed with OT. Patient given prn dilaudid and appeared in less discomfort after each dose. Caregivers at bedside attentive to patient. Patient given suppository and had a large BM today. Tolerating diet. Will continue to monitor. PLAN MOVING FORWARD: Safety/ pain management. Discharge planning. INDIVIDUALIZED FALL PREVENTION INTERVENTIONS: Patient-specific fall risk factors per assessment: [current deficits]: Cognitive delay. Assistance [level of assistance required for transfers and ambulation]: 2 assist stand pivot Supervision [direct monitoring required during toileting and ADLs]: Hands on Surveillance [continuous indirect monitoring]: Rounding/ caregiver at bedside CPG GOAL OUTCOME EVALUATION: Goal: Individualization & Mutuality 09/29/171938 Individualization Patient Specific Preferences apple juice with meds Goal: Fall Prevention-Safe Patient Handling 09/25/17211509/29/17 1039 Restraint Interventions Safety Promotion/Fall Prevention -- fall prevention program maintained;safety round/check completed Activity Activity Type -- activity adjusted per tolerance Activity Assistance Provided -- assistance, 2 people Assistive Device Utilized -- wheelchair Positioning Body Position -- independent Daily Care Interventions Self-Care Promotion independence encouraged;BADL personal objects within reach;BADL personal routines maintained;safe use of adaptive equipment encouraged -- [place] Fall Risk History of Falling -- 25 Secondary Diagnosis -- 15 Ambulatory Aids -- 0 Intravenous Therapy/Heparin/Saline Lock -- 0 Gait/Transferring -- 20 Mental Status -- 15 Score -- 75 OTHER [place] Fall Risk -- High Goal: Infection Control 09/29/17 1039 Safety Interventions Isolation Precautions standard precautions maintained Infection Prevention rest/sleep promoted;single patient room provided;equipment surfaces disinfected;environmental surveillance performed Coping Strategies Supportive Measures relaxation techniques promoted Goal: Discharge Needs Assessment 09/29/171938 Discharge Needs Assessment Concerns To Be Addressed no discharge needs identified Readmission Within The Last 30 Days no previous admission in last 30 days Goal: Interdisciplinary Rounds/Family Conf 09/29/171938 Interdisciplinary Rounds/Family Conf Participants patient;nursing * Plan of Care - Ren Walters OTA - 09/29/2017 3:40 PM EDT Occupational Therapy Treatment Note Pertinent History of Current Problem: (P) Pt is a 27 yo man with a history of resection of pituitary tumor, intraoperative hemorrhage and CVA, cognitive impairment, cortical blindness, partial L sided paralysis, seizure disorder, and panhypopituitarism (with DI, adrenal insufficiency, hypothyroidism, hypogonadism) here with a left acetabular fracture that occurred in the setting of a possible seizure Precautions/Restrictions: (P) fall, weight bearing Precautions Comments: (P) NWB L LE, L side weaker than R at baseline Assessment: Pt was seen today for skilled OT. Session focussed on grooming and following simple commands, transferring while maintaining WB precautions. Pt required extended time to follow commands but was able to complete grooming tasks while seated at sink. Pt completed transferring back to his bed and was able to indicate which leg was NWB before transfer and maintained it through out transfer. Next session will work on LB dressing. Pt will benefit from ongoing therapeutic interventions to achieve pt's and therapy goals. Please refer to associated flowsheet data listed below for treatment session details. Staff Recommendations: Encourage OOB activity and participation in all self care tasks Anticipated Discharge Disposition: half-way facility Pager: [phone] ZULMA Vargas 09/30/2017 Occupational Therapy Rehabilitation Department 09/29/17 1310 Rehab Evaluation Document Type therapy note (daily note) Total Evaluation Minutes, Occupational Therapy 45 Patient Effort good Symptoms Noted During/After Treatment (annoyance ) General Information Patient Profile Review yes Patient/Family/Caregiver Comments/Observations Yes-when asked if he wanted to brush his teeth General Observations of Patient pt resting in recliner when therapy began Pertinent History of Current Problem Pt is a 27 yo man with a history of resection of pituitary tumor, intraoperative hemorrhage and CVA, cognitive impairment, cortical blindness, partial L sided paralysis, seizure disorder, and panhypopituitarism (with DI, adrenal insufficiency, hypothyroidism, hyp ogonadism) here with a left acetabular fracture that occurred in the setting of a possible seizure Hearing Precautions/Limitations WNL Precautions/Restrictions fall;weight bearing Precautions Comments NWB L LE, L side weaker than R at baseline Limitations/Impairments safety/cognitive Treatment Number OT 6 Left Lower Extremity (Weight Bearing Status) nonweight bearing Cognitive Assessment Interventions Behavior/Mood Observations (Cognitive) alert Orientation Status (Cognitive) unable/difficult to assess Attention (Cognitive) unable/difficult to assess Follows Commands/Answers Questions (Cognitive) 50% of the time Personal Safety (Cognitive) severe impairment;decreased awareness, need for assist;decreased awareness, need for safety;at risk behaviors demonstrated;decreased insight to deficits Pain Scale/Rating Pain Assessment Scale Non Verbal Pain Level 2 Weight-Bearing Status Extremity Weight Bearing Status left lower extremity Transfer Assessment/Treatment [place] (Sit-Stand Transfers) moderate assist (50% patient effort);2 person assist required [place] (Stand-Sit Transfers) moderate assist (50% patient effort);2 person assist required Chair-Bed [place] (Transfers) maximum assist (25% patient effort);2 person assist required Grooming Assessment/Training Position (Grooming) sitting (in chair at sink) [place] Level (Grooming) set up required;verbal cues required (extended time) Impairments (Grooming) (Cognative) Comment (Grooming) Pt able to wash face and brush his teeth. * Plan of Care - Skyler Aviles RN - 09/29/2017 3:03 AM EDT Problem: Patient Care Overview Goal: Individualization & Mutuality 09/05/17 0607 09/07/17 0504 09/18/17 1253 Individualization Patient Specific Preferences Able to answer yes/no questions -- -- Patient Specific Goals -- -- pain control, mobilize, D/C planning Patient Specific Interventions -- -- frequent incontinence care Mutuality/Individual Preferences What Anxieties, Fears or Concerns Do You Have About Your Health or Care? -- ISHAAN -- What Questions Do You Have About Your Health or Care? -- ISHAAN -- What Information Would Help Us Give You More Personalized Care? -- ISHAAN -- OUTCOME EVALUATION NOTE: OUTCOME SUMMARY: Pt slept better tonight from about 2230 on. No change in condition. PLAN MOVING FORWARD: Mobilize as tolerated, safety for pt and staff. INDIVIDUALIZED FALL PREVENTION INTERVENTIONS: Patient-specific fall risk factors per assessment: [current deficits]: Impaired cognition and mobility Assistance [level of assistance required for transfers and ambulation]: 1-2 assist Supervision [direct monitoring required during toileting and ADLs]: Eyes on Surveillance [continuous indirect monitoring]: Purposeful rounding Patient-specific fall prevention interventions for sensory deficits provided, if applicable: [X] No CPG GOAL OUTCOME EVALUATION: Goal: Fall Prevention-Safe Patient Handling 09/25/17 2116 09/28/17 1600 09/29/17 0200 Restraint Interventions Safety Promotion/Fall Prevention -- -- activity supervised Activity Activity Type -- -- activity adjusted per tolerance Activity Assistance Provided -- -- assistance, 2 people Assistive Device Utilized -- wheelchair -- Positioning Body Position -- -- independent Daily Care Interventions Self-Care Promotion independence encouraged;BADL personal objects within reach;BADL personal routines maintained;safe use of adaptive equipment encouraged -- -- [place] Fall Risk History of Falling -- -- 25 Secondary Diagnosis -- -- 15 Ambulatory Aids -- -- 0 Intravenous Therapy/Heparin/Saline Lock -- -- 0 Gait/Transferring -- -- 20 Mental Status -- -- 15 Score -- -- 75 OTHER [place] Fall Risk -- -- High Goal: Infection Control 09/28/17 0730 Safety Interventions Isolation Precautions standard precautions maintained Infection Prevention rest/sleep promoted;single patient room provided Coping Strategies Supportive Measures active listening utilized;self-care encouraged;verbalization of feelings encouraged Goal: Discharge Needs Assessment 09/08/17 0403 09/18/17 1250 09/19/17 0920 Discharge Needs Assessment Concerns To Be Addressed -- -- no discharge needs identified Readmission Within The Last 30 Days -- -- no previous admission in last 30 days Equipment Needed After Discharge -- other (see comments) (TBD) -- Current Discharge Risk -- cognitively impaired;physical impairment -- Discharge Disposition -- still a patient -- Current Health Outpatient/Agency/Support Group Needs -- nursing home (specify) -- Anticipated Changes Related to Illness none -- -- Living Environment Transportation Available -- car (caregiver from nursing home) -- Activity/Self Care Review of Systems Equipment Currently Used at Home -- none -- * Plan of Care - Elena Smith RN - 09/28/2017 6:55 PM EDT Problem: Patient Care Overview Goal: Plan of Care Review Outcome: Ongoing (Interventions Implemented as Appropriate) OUTCOME EVALUATION NOTE: OUTCOME SUMMARY: Patient very sleepy this shift. PO intake encouraged to help with high Na levels. OOB to wheelchairtoday for portion of shift. Incontinent of urine. Attempted to place patient on commode to schedulevoiding. Pain managed with PRN PO dilaudid. Towards the end of shift patient became increasingly agitated, hitting and trying to bite staff, PO haldol given. Caregivers at bedside, will continue to monitor.?? PLAN MOVING FORWARD: -[x]Pain Control -[x]Mobilize -[] INDIVIDUALIZED FALL PREVENTION: Fall Score: High Baseline mobility: Independent Assistance: -2 nurse assist Supervision: -[x]Hands-on for all transfers and ambulation -[x]Eyes-on for all transfers and ambulation -[x]Arms-Reach for all transfers and ambulation Surveillance: -[x]Bed Alarm/Chair Alarm -[x]Purposeful Rounding -[x]Team Care -[x]Bedside Nurse Knowledge Exchange CPG OUTCOME EVALUATION: * Plan of Care - Skyler Aviles RN - 09/28/2017 1:15 AM EDT Problem: Patient Care Overview Goal: Plan of Care Review 09/26/17 0515 09/27/17 0720 Coping/Psychosocial Plan Of Care Reviewed With -- patient;caregiver Plan of Care Review Progress no change -- OUTCOME EVALUATION NOTE: OUTCOME SUMMARY: Pt able with walker and 2 assist to stand/pivot onto commode. He voided large amount. Pt was also incontinent of urine. He continues to yell most of the night. Prn Haldol and Ativan as well as Dilaudid given. Pt awake and frequently yelling out until about 12:30a.m. PLAN MOVING FORWARD: Keep pt safe until placement INDIVIDUALIZED FALL PREVENTION INTERVENTIONS: Patient-specific fall risk factors per assessment: [current deficits]: Impaired cognition and mobility, pain meds Assistance [level of assistance required for transfers and ambulation]: Up with walker and moderateassist of 2. Supervision [direct monitoring required during toileting and ADLs]: Eyes on. Surveillance [continuous indirect monitoring]: Purposeful rounding Patient-specific fall prevention interventions for sensory deficits provided, if applicable: [X] No CPG GOAL OUTCOME EVALUATION: Goal: Individualization & Mutuality 09/05/17 0607 09/07/17 0504 09/18/17 1253 Individualization Patient Specific Preferences Able to answer yes/no questions -- -- Patient Specific Goals -- -- pain control, mobilize, D/C planning Patient Specific Interventions -- -- frequent incontinence care Mutuality/Individual Preferences What Anxieties, Fears or Concerns Do You Have About Your Health or Care? -- ISHAAN -- What Questions Do You Have About Your Health or Care? -- ISHAAN -- What Information Would Help Us Give You More Personalized Care? -- ISHAAN -- Goal: Fall Prevention-Safe Patient Handling 09/25/17 2116 09/26/17 1430 09/27/17 0720 Restraint Interventions Safety Promotion/Fall Prevention -- -- -- Activity Activity Type -- -- -- Activity Assistance Provided -- -- assistance, 2 people Assistive Device Utilized -- mechanical lift -- Positioning Body Position -- -- independent Daily Care Interventions Self-Care Promotion independence encouraged;BADL personal objects within reach;BADL personal routines maintained;safe use of adaptive equipment encouraged -- -- [place] Fall Risk History of Falling -- -- -- Secondary Diagnosis -- -- -- Ambulatory Aids -- -- -- Intravenous Therapy/Heparin/Saline Lock -- -- -- Gait/Transferring -- -- -- Mental Status -- -- -- Score -- -- -- OTHER [place] Fall Risk -- -- High 09/27/17 1293 Restraint Interventions Safety Promotion/Fall Prevention activity supervised Activity Activity Type activity adjusted per tolerance Activity Assistance Provided -- Assistive Device Utilized -- Positioning Body Position -- Daily Care Interventions Self-Care Promotion -- [place] Fall Risk History of Falling 25 Secondary Diagnosis 15 Ambulatory Aids 15 Intravenous Therapy/Heparin/Saline Lock 0 Gait/Transferring 20 Mental Status 15 Score 90 OTHER [place] Fall Risk -- Goal: Infection Control 09/27/17 0720 09/27/17 7475 Safety Interventions Isolation Precautions standard precautions maintained -- Infection Prevention rest/sleep promoted;single patient room provided -- Coping Strategies Supportive Measures -- active listening utilized Goal: Discharge Needs Assessment 09/08/17 0403 09/18/17 1250 09/19/17 0920 Discharge Needs Assessment Concerns To Be Addressed -- -- no discharge needs identified Readmission Within The Last 30 Days -- -- no previous admission in last 30 days Equipment Needed After Discharge -- other (see comments) (TBD) -- Current Discharge Risk -- cognitively impaired;physical impairment -- Discharge Disposition -- still a patient -- Current Health Outpatient/Agency/Support Group Needs -- nursing home (specify) -- Anticipated Changes Related to Illness none -- -- Living Environment Transportation Available -- car (caregiver from nursing home) -- Activity/Self Care Review of Systems Equipment Currently Used at Home -- none -- * Plan of Care - Elena Smith RN - 09/27/2017 6:05 PM EDT Problem: Patient Care Overview Goal: Plan of Care Review Outcome: Ongoing (Interventions Implemented as Appropriate) OUTCOME EVALUATION NOTE: OUTCOME SUMMARY: Patient had a good day today. Patient up in wheelchair for a good portion of shift. Patient ate 100% of all meals and had good PO intake. Patient became increasingly agitated throughout shift. Pain managed with PRN PO dilaudid. Incontinence care provided PRN. Caregivers at bedside, will continue tomonitor. PLAN MOVING FORWARD: -[x]Pain Control -[x]Mobilize -[] INDIVIDUALIZED FALL PREVENTION: Fall Score: High Baseline mobility: Independent Assistance: -2 assist with stand pivot Supervision: -[x]Hands-on for all transfers and ambulation -[x]Eyes-on for all transfers and ambulation -[x]Arms-Reach for all transfers and ambulation Surveillance: -[x]Bed Alarm/Chair Alarm -[x]Purposeful Rounding -[x]Team Care -[x]Bedside Nurse Knowledge Exchange CPG OUTCOME EVALUATION: * Plan of Care - Skyler Aviles RN - 09/27/2017 2:49 AM EDT Problem: Patient Care Overview Goal: Plan of Care Review OUTCOME EVALUATION NOTE: OUTCOME SUMMARY: Pt continues yelling for most of shift. Unable to determine why at times, pain meds given. Pt incontinent urine. PLAN MOVING FORWARD: Awaiting placement, mobilize as tolerated INDIVIDUALIZED FALL PREVENTION INTERVENTIONS: Patient-specific fall risk factors per assessment: [current deficits]: Impaired mobility and cognition Assistance [level of assistance required for transfers and ambulation]: Moderate assist of 2 for bed mobility Supervision [direct monitoring required during toileting and ADLs]: Eyes on Surveillance [continuous indirect monitoring]: Purposeful rounding Patient-specific fall prevention interventions for sensory deficits provided, if applicable: [X] No CPG GOAL OUTCOME EVALUATION: Goal: Individualization & Mutuality 09/05/17 0607 09/07/17 0504 09/18/17 1253 Individualization Patient Specific Preferences Able to answer yes/no questions -- -- Patient Specific Goals -- -- pain control, mobilize, D/C planning Patient Specific Interventions -- -- frequent incontinence care Mutuality/Individual Preferences What Anxieties, Fears or Concerns Do You Have About Your Health or Care? -- ISHAAN -- What Questions Do You Have About Your Health or Care? -- ISHAAN -- What Information Would Help Us Give You More Personalized Care? -- ISHAAN -- Goal: Fall Prevention-Safe Patient Handling 09/25/17 2116 09/26/17 1430 09/27/17 0200 Restraint Interventions Safety Promotion/Fall Prevention -- safety round/check completed -- Activity Activity Type -- -- activity adjusted per tolerance Activity Assistance Provided -- assistance, 2 people -- Assistive Device Utilized -- mechanical lift -- Positioning Body Position -- independent -- Daily Care Interventions Self-Care Promotion independence encouraged;BADL personal objects within reach;BADL personal routines maintained;safe use of adaptive equipment encouraged -- -- [place] Fall Risk History of Falling -- -- 25 Secondary Diagnosis -- -- 15 Ambulatory Aids -- -- 15 Intravenous Therapy/Heparin/Saline Lock -- -- 0 Gait/Transferring -- -- 20 Mental Status -- -- 15 Score -- -- 90 OTHER [place] Fall Risk -- -- High Goal: Infection Control 09/25/17 2116 09/26/17 1430 09/27/17 0200 Safety Interventions Isolation Precautions -- standard precautions maintained -- Infection Prevention barrier precautions utilized;rest/sleep promoted;single patient room provided -- -- Coping Strategies Supportive Measures -- -- positive reinforcement provided Goal: Discharge Needs Assessment 09/08/17 0403 09/18/17 1250 09/19/17 0920 Discharge Needs Assessment Concerns To Be Addressed -- -- no discharge needs identified Readmission Within The Last 30 Days -- -- no previous admission in last 30 days Equipment Needed After Discharge -- other (see comments) (TBD) -- Current Discharge Risk -- cognitively impaired;physical impairment -- Discharge Disposition -- still a patient -- Current Health Outpatient/Agency/Support Group Needs -- nursing home (specify) -- Anticipated Changes Related to Illness none -- -- Living Environment Transportation Available -- car (caregiver from nursing home) -- Activity/Self Care Review of Systems Equipment Currently Used at Home -- none -- * Plan of Care - [place] Forman RN - 09/26/2017 5:21 AM EDT Problem: Patient Care Overview Goal: Plan of Care Review Outcome: Ongoing (Interventions Implemented as Appropriate) 09/26/17 0515 Coping/Psychosocial Plan Of Care Reviewed With patient Plan of Care Review Progress no change OUTCOME EVALUATION NOTE: OUTCOME SUMMARY: Patient progressing towards d/c goals slowly at this time. Stood and pivoted from chair to bed withtwo handhold assist. Slept intermittently throughout night. PRN pain meds and ativan given to good effect. Incontinence care provided PRN. BPs elevated, MD aware. Will continue to monitor and help patient reach d/c goals. PLAN MOVING FORWARD: Pain control Mobilize D/c planning INDIVIDUALIZED FALL PREVENTION: Patient is currently a high risk to Fall. Patient educated on bed/chair alarm, demonstrates proper use of call morris and verbalizes understanding of fall preventions implemented. Patient-specific fall risk factors per assessment: [current deficits]: Blindness, Pain, Medications, Hospital Environment. Assistance [level of assistance required for transfers and ambulation]: Two assist Supervision [direct monitoring required during toileting and ADLs]: Total assistance with ADL's Surveillance [continuous indirect monitoring]: Caregiver at bedside, Purposeful Rounding, Bedside Report Patient-specific fall prevention interventions for sensory deficits provided, if applicable: [X] Yes CPG GOAL OUTCOME EVALUATION: Goal: Individualization & Mutuality Outcome: Ongoing (Interventions Implemented as Appropriate) 09/18/17 1253 Individualization Patient Specific Goals pain control, mobilize, D/C planning Goal: Fall Prevention-Safe Patient Handling Outcome: Ongoing (Interventions Implemented as Appropriate) 09/24/17 0833 09/25/172115 Restraint Interventions Safety Promotion/Fall Prevention -- activity supervised;muscle strengthening facilitated;safety round/check completed Activity Activity Type -- activity adjusted per tolerance Activity Assistance Provided assistance, 2 people -- Assistive Device Utilized mechanical lift -- Positioning Body Position -- independent Daily Care Interventions Self-Care Promotion -- independence encouraged;BADL personal objects within reach;BADL personal routines maintained;safe use of adaptive equipment encouraged [place] Fall Risk History of Falling -- 25 Secondary Diagnosis -- 15 Ambulatory Aids -- 15 Intravenous Therapy/Heparin/Saline Lock -- 0 Gait/Transferring -- 20 Mental Status -- 15 Score -- 90 OTHER [place] Fall Risk -- High Goal: Infection Control Outcome: Ongoing (Interventions Implemented as Appropriate) 09/25/172115 Safety Interventions Isolation Precautions standard precautions maintained Infection Prevention barrier precautions utilized;rest/sleep promoted;single patient room provided Coping Strategies Supportive Measures active listening utilized;counseling provided;decision- making supported Goal: Discharge Needs Assessment Outcome: Ongoing (Interventions Implemented as Appropriate) 09/08/17 0403 09/18/17 1250 09/19/17 0920 Discharge Needs Assessment Concerns To Be Addressed -- -- no discharge needs identified Readmission Within The Last 30 Days -- -- no previous admission in last 30 days Equipment Needed After Discharge -- other (see comments) (TBD) -- Current Discharge Risk -- cognitively impaired;physical impairment -- Discharge Disposition -- still a patient -- Current Health Outpatient/Agency/Support Group Needs -- nursing home (specify) -- Anticipated Changes Related to Illness none -- -- Living Environment Transportation Available -- car (caregiver from nursing home) -- Activity/Self Care Review of Systems Equipment Currently Used at Home -- none -- Goal: Interdisciplinary Rounds/Family Conf Outcome: Ongoing (Interventions Implemented as Appropriate) 09/26/17 0515 Interdisciplinary Rounds/Family Conf Participants nursing;patient Problem: Skin Integrity Impairment, Risk/Actual (Adult) Goal: Skin Integrity/Wound Healing Patient will demonstrate the desired outcomes by discharge/transition of care. Outcome: Ongoing (Interventions Implemented as Appropriate) 09/26/17 0515 Skin Integrity Impairment, Risk/Actual (Adult) Skin Integrity/Wound Healing making progress toward outcome Problem: Fracture Orthopaedic (Adult) Goal: Signs and Symptoms of Listed Potential Problems Will be Absent, Minimized or Managed (Fracture Orthopaedic) Signs and symptoms of listed potential problems will be absent, minimized or managed by discharge/transition of care (reference Fracture Orthopaedic (Adult) CPG). Outcome: Ongoing (Interventions Implemented as Appropriate) 09/26/17 0515 Fracture Orthopaedic Problems Assessed (Orthopaedic Fracture) all Problems Present (Orthopaedic Fracture) pain;situational response * Plan of Care - Louis Doran PTA - 09/25/2017 12:10 PM EDT Physical Therapy Treatment Treatment Number PT: 5 Pertinent History of Current Problem: Pt is a 27 yo man with a history of resection of pituitary tumor, intraoperative hemorrhage and CVA, cognitive impairment, cortical blindness, partial L sided paralysis, seizure disorder, and panhypopituitarism (with DI, adrenal insufficiency, hypothyroidism, hy pogonadism) here with a left acetabular fracture that occurred in the setting of a possible seizure. Precautions/Restrictions: fall, weight bearing Precautions Comments: NWB L LE, L side weaker than R at baseline Assessment: Pt seen for functional mobility, strength, endurance and pt education. Pt initially somnolent and difficult to wake, once upright in sitting became more responsive but less than previous session. Stand pivot transfer, pt lifted walker off the ground and required Max A x 2, but respondedwell to instructions and cues. Ambulated several times and initially able to maintain NWB to L LE but as pt fatigue began placing more weight on the L LE, ambulation stopped at this point. Pt left upin recliner chair, discussed with nursing performing stand pivot transfers with pt more frequently to get pt up to the chair daily. Please see the flow sheet below for patient details and mobility. Pt would benefit from ongoing physical therapy interventions. Staff Mobility Recommendations: Stand pivot with FWW and 2 assist LOUIS DORAN PTA Pager: [phone] Inpatient Physical Therapy 09/25/17 1210 Rehab Evaluation Document Type therapy note (daily note) Total Evaluation Minutes, Physical Therapy 25 (TE-F x 2) Patient Effort adequate Symptoms Noted During/After Treatment fatigue;increased pain General Information Patient/Family/Caregiver Comments/Observations gave thumbs up sign several times throughout session Pertinent History of Current Problem Pt is a 27 yo man with a history of resection of pituitary tumor, intraoperative hemorrhage and CVA, cognitive impairment, cortical blindness, partial L sided paralysis, seizure disorder, and panhypopituitarism (with DI, adrenal insufficiency, hypothyroidism, hyp ogonadism) here with a left acetabular fracture that occurred in the setting of a possible seizure. Precautions/Restrictions fall;weight bearing Precautions Comments NWB L LE, L side weaker than R at baseline Treatment Number PT 5 Pain Scale/Rating Pain Assessment Scale Faces (Roberson-Carter FACES Pain Rating Scale) Pain Level 4 Bed Mobility Assessment/Treatment Assistive Device (Bed Mobility) bed rails Uauwgd-on-Tef [place] (Bed Mobility) moderate assist (50% patient effort);2 person assist required Comment (Bed Mobility) Pt asleep initially, difficult to arouse, once assisted into seated positionpt able to hold himself up and became slightly more responsive Transfer Assessment/Treatment Bed-Chair [place] (Transfers) maximum assist (25% patient effort);2 person assist required Zja-Lfeph-Spk Assistive Device (Transfers) rolling walker [place] (Sit-Stand Transfers) moderate assist (50% patient effort);2 person assist required [place] (Stand-Sit Transfers) moderate assist (50% patient effort);2 person assist required Nyp-Ulftk-Jbz Assistive Device (Transfers) rolling walker Maintain Weight Bearing Status (Transfers) assist to maintain weight bearing status Impairments (Transfers) balance impaired;pain;strength decreased;vision impaired Comment (Transfers) Stand step transfer from bed to recliner chair, some weight bearing on L LE, ptpicked up walker once. Subsequent stands from recliner chair, pt able to maintain initial NWB to L LE Gait Assessment/Treatment [place] (Gait) moderate assist (50% patient effort);2 person assist required Assistive Device (Gait) rolling walker Distance in Feet (Gait) 10 ft x 2 Maintain Weight Bearing Status (Gait) unable to maintain weight bearing status Impairments (Gait) balance impaired;pain;strength decreased;vision impaired Comment (Gait) Ambulated with chair follow, initailly held L LE in NWB but as UE's fatigue pt beganweight bearing through L LE more. Step by step cues Plan of Care Review Plan Of Care Reviewed With patient;caregiver Bed Mobility Goal Bed Mobility Goal, Date Established 09/09/17 Bed Mobility Goal, Time to Achieve by discharge Bed Mobility Goal, Activity Type all bed mobility activities Bed Mobility Goal, [place] Level moderate assist (50% patient effort) Bed Mobility Goal, Outcome Achieved goal ongoing Gait Training Goal Gait Training Goal, Date Established 09/09/17 Gait Training Goal, Time to Achieve by discharge Gait Training Goal, [place] Level minimum assist (75% patient effort) Gait Training Goal, Assist Device walker, rolling Gait Training Goal, Distance to Achieve 15 ft Gait Training Goal, Outcome goal ongoing Transfer Training Goal Transfer Training Goal, Date Established 09/09/17 Transfer Training Goal, Time to Achieve by discharge Transfer Training Goal, Activity Type dus-it-czlya/yxdqf-rs-hhm;mcn-ab-ozjft/ygtsy-fl-bec Transfer Train Goal, [place] Level minimum assist (75% patient effort) Transfer Training Goal, Assist Device walker, rolling Transfer Training Goal, Outcome goal ongoing Physical Therapy Goal PT Goal, Date Established 09/09/17 PT Goal, Time to Achieve by discharge PT Goal, Activity Type Pt will propel self in w/c household distances PT Goal, [place] Level set up required;supervision required PT Goal, Outcome goal ongoing Clinical Impression Therapy Frequency 2-4 times/wk Anticipated Equipment Needs at Discharge front wheeled walker Anticipated Discharge Disposition half-way facility (could go to handicap accesible nursing home with assistance) * Plan of Care - Lisa Person RN - 09/25/2017 2:03 AM EDT Problem: Patient Care Overview Goal: Plan of Care Review Outcome: Ongoing (Interventions Implemented as Appropriate) 09/22/17 1426 09/24/17 2141 Coping/Psychosocial Plan Of Care Reviewed With -- patient;caregiver Plan of Care Review Progress no change -- OUTCOME EVALUATION NOTE: OUTCOME SUMMARY: Pt was very restless/agitated overnight. PRN ativan and haldol given and pt was finally able to sleep around 3am. PRN dilaudid controlling pain. Caregiver at bedside. Incontinence care provided as needed. Will continue to monitor. PLAN MOVING FORWARD: Pain control, PT/OT, d/c planning INDIVIDUALIZED FALL PREVENTION INTERVENTIONS: Patient-specific fall risk factors per assessment: [current deficits]: Recent trauma/surgery, cognitive impairment, blindness, pain, narcotics, hospital environment Assistance [level of assistance required for transfers and ambulation]: 2 person assist w/ FWW, mechanical lift Supervision [direct monitoring required during toileting and ADLs]: Hands on Surveillance [continuous indirect monitoring]: Purposeful rounding, bed alarm, caregiver at beside Patient-specific fall prevention interventions for sensory deficits provided, if applicable: [X] N/A CPG GOAL OUTCOME EVALUATION: * Plan of Care - Kateryna Whitehead RN - 09/24/2017 5:41 PM EDT Problem: Patient Care Overview Goal: Plan of Care Review Outcome: Ongoing (Interventions Implemented as Appropriate) 09/24/17 1733 Coping/Psychosocial Plan Of Care Reviewed With patient;caregiver Goal: Fall Prevention-Safe Patient Handling Outcome: Ongoing (Interventions Implemented as Appropriate) 09/22/17 2148 09/24/17 0833 09/24/17 1600 Restraint Interventions Safety Promotion/Fall Prevention -- -- activity supervised Activity Activity Type -- activity adjusted per tolerance -- Activity Assistance Provided -- assistance, 2 people -- Assistive Device Utilized -- mechanical lift -- Positioning Body Position -- supine, head elevated -- Daily Care Interventions Self-Care Promotion independence encouraged;BADL personal objects within reach -- -- [place] Fall Risk History of Falling -- 25 -- Secondary Diagnosis -- 15 -- Ambulatory Aids -- 0 -- Intravenous Therapy/Heparin/Saline Lock -- 0 -- Gait/Transferring -- 20 -- Mental Status -- 15 -- Score -- 75 -- OTHER [place] Fall Risk -- High -- Goal: Infection Control Outcome: Ongoing (Interventions Implemented as Appropriate) 09/23/17 19409/24/17 1600 Safety Interventions Isolation Precautions -- standard precautions maintained Infection Prevention -- environmental surveillance performed Coping Strategies Supportive Measures active listening utilized;verbalization of feelings encouraged -- Problem: Fracture Orthopaedic (Adult) Goal: Signs and Symptoms of Listed Potential Problems Will be Absent, Minimized or Managed (Fracture Orthopaedic) Signs and symptoms of listed potential problems will be absent, minimized or managed by discharge/transition of care (reference Fracture Orthopaedic (Adult) CPG). Outcome: Ongoing (Interventions Implemented as Appropriate) OUTCOME EVALUATION NOTE: OUTCOME SUMMARY: VSS with HR fluctuating in 90s-low 100s. Pt on RA. Pt displays s/s of pain intermittently throughout shift, prn medications given as needed; will continue to monitor. Neurovascular assessment WDL- color return less than 3 seconds, equal temperature and pulses when compared to RLE. Pt occasionally pockets food in cheeks and needs encouragement to swallow or to remove food from mouth. PLAN MOVING FORWARD: Will continue to monitor VS, maintain safety preventions in place, and monitor for any changes in neurovascular status. INDIVIDUALIZED FALL PREVENTION INTERVENTIONS: Patient-specific fall risk factors per assessment: [current deficits]: Left hip injury and impairedcognitive abilities Assistance [level of assistance required for transfers and ambulation]: x2 assist with walker to a standing position; mechanical lift for transfer from bed to chair Supervision [direct monitoring required during toileting and ADLs]: Caregiver at bedside, and handson assist required Surveillance [continuous indirect monitoring]: n/a Patient-specific fall prevention interventions for sensory deficits provided, if applicable: [X] Yes- blind in both eyes; caregiver at bedside CPG GOAL OUTCOME EVALUATION: stable * Plan of Care - Ren Walters OTA - 09/24/2017 10:10 AM EDT Occupational Therapy Treatment Note Pertinent History of Current Problem: (P) Pt is a 27 yo man with a history of resection of pituitary tumor, intraoperative hemorrhage and CVA, cognitive impairment, cortical blindness, partial L sided paralysis, seizure disorder, and panhypopituitarism (with DI, adrenal insufficiency, hypothyroidism, hypogonadism) here with a left acetabular fracture that occurred in the setting of a possible seizure. Precautions/Restrictions: (P) fall, weight bearing Precautions Comments: (P) NWB L LE, L side weaker than R at baseline Assessment: Pt was seen today for skilled OT. Session focussed on pt following simple directions, sitting upright for play and sitting up right for lunch. Pt presented in a better mood today and was able to follow simple commands more accurately than previous session. Pt was able to sit EOB and engage in play with his toys. Pt sat back in bed with VCs and Min A, the bed was put in chair position for lunch. Next session will focus on transferring from bed to chair for meals. Pt will benefit fromongoing therapeutic interventions to achieve pt's and therapy goals. Please refer to associated flowsheet data listed below for treatment session details. Staff Recommendations: Encourage OOB activity and participation in all self care tasks Anticipated Discharge Disposition: (P) half-way facility Pager: [phone] ZULMA Vargas 09/24/2017 Occupational Therapy Rehabilitation Department 09/24/17 1932 Rehab Evaluation Document Type therapy note (daily note) Total Evaluation Minutes, Occupational Therapy 25 Patient Effort adequate Symptoms Noted During/After Treatment increased pain General Information Patient Profile Review yes Patient/Family/Caregiver Comments/Observations pt crying out but able to answer simple questions General Observations of Patient pt resting in bed when therapy began Pertinent History of Current Problem Pt is a 27 yo man with a history of resection of pituitary tumor, intraoperative hemorrhage and CVA, cognitive impairment, cortical blindness, partial L sided paralysis, seizure disorder, and panhypopituitarism (with DI, adrenal insufficiency, hypothyroidism, hyp ogonadism) here with a left acetabular fracture that occurred in the setting of a possible seizure. Hearing Precautions/Limitations WNL Precautions/Restrictions fall;weight bearing Precautions Comments NWB L LE, L side weaker than R at baseline Limitations/Impairments safety/cognitive Treatment Number OT 5 Cognitive Assessment Interventions Behavior/Mood Observations (Cognitive) alert;cooperative Orientation Status (Cognitive) unable/difficult to assess Attention (Cognitive) unable/difficult to assess Follows Commands/Answers Questions (Cognitive) 50% of the time;needs cueing;needs increased time;needs repetition Personal Safety (Cognitive) severe impairment;decreased awareness, need for assist;decreased awareness, need for safety;decreased insight to deficits;impulsive;at risk behaviors demonstrated Pain Scale/Rating Pain Assessment Scale Faces (Roberson-Carter FACES Pain Rating Scale) Pain Level 4 Bed Mobility Assessment/Treatment Assistive Device (Bed Mobility) bed rails Odevzz-dp-Bio [place] (Bed Mobility) verbal cues required;contact guard assist Efw-md-Tgdavv [place] (Bed Mobility) verbal cues required;minimum assist (75% patient effort) Impairments (Bed Mobility) pain;ROM (range of motion) decreased Comment (Bed Mobility) extra time needed Safety Issues (Bed Mobility) decreased use of legs for bridging/pushing Eating Self-Feeding Goal Eat Self Feeding Goal, Time to Achieve 2 wks Eat Self Feeding Goal, Activity Type Pt will be able to transfer to the chair with min A of 2 and use of a walker- to promote increased activity and improved positioning for task. Eat Self Feeding Goal, Outcome goal ongoing Occupational Therapy Goal OT Goal, Time to Achieve 2 wks OT Goal, Activity Type Pt will tolerate sitting upright in chair for > 30 min for ther. activity/play task. OT Goal, Outcome goal ongoing Clinical Impression Criteria for Skilled Therapeutic Interventions Met yes;treatment indicated Rehab Potential fair, will monitor progress closely Therapy Frequency 2-4 times/wk Anticipated Discharge Disposition half-way facility * Plan of Care - Laura Vasquez RN - 09/24/2017 4:18 AM EDT Problem: Patient Care Overview Goal: Infection Control Outcome: Ongoing (Interventions Implemented as Appropriate) 09/23/171944 Safety Interventions Isolation Precautions standard precautions maintained Infection Prevention environmental surveillance performed;rest/sleep promoted;single patient room provided Coping Strategies Supportive Measures active listening utilized;verbalization of feelings encouraged OUTCOME EVALUATION NOTE: OUTCOME SUMMARY: This patient's skin remains intact at this time with no reddened areas. Pt currently repositioning self in bed every 2 hrs. Pt verbalizes understanding to reposition self every 2 hrs to prevent skin breakdown and alert nurse when help is needed to do so. Will continue to monitor. This patient reports that his pain is adequately managed with the ordered medication regimen. This patient denies chest pain, shortness of breath, and nausea. The patient's incision remains clean, dry, and intact. Last recorded vital signs: Last value Temperature Temp: 36 ??C (96.8 ??F) Heart Rate Heart Rate: 78 Blood Pressure BP: (!) 146/98 Respiratory Rate Resp: 18 SpO2 SpO2: 98 % Recorded I/O: PLAN MOVING FORWARD: The plan moving forward with this patient is to work with PT/OT to increase this patients independence with ADLs. INDIVIDUALIZED FALL PREVENTION INTERVENTIONS: Patient-specific fall risk factors per assessment: [current deficits]: This patient has decreased his mobility and sensory impairment in relation to receiving the medication oxycodone. Assistance [level of assistance required for transfers and ambulation]: This patient requires 2 assist. Supervision [direct monitoring required during toileting and ADLs]: This patient requires his assist with ADLs. Surveillance [continuous indirect monitoring]: Jeet nursing knowledge exchange, purposeful rounding. Patient has history of: No past medical history on file. Past Surgical History: Procedure Laterality Date ??? PRO OPEN CROSSCUTTER ROLLED GLASS FIX ACETABULAR FX Left 09/04/2017 @OPEN TREATMENT, ACETABULAR FX (WRVU 25.41) performed by Amy Lance MD at [facility] MAIN OR Patient has following SCHEDULED medications: ??? desmopressin 0.05 mg Oral 3 times per day ??? methyl salicylate-menthol Topical (Top) BID ??? calcium carbonate 500 mg Oral BID ??? cholecalciferol (Vitamin D3) 1,000 Units Oral Daily ??? hydrocortisone 20 mg Oral QAM ??? hydrocortisone 10 mg Oral Daily at Noon ??? hydrocortisone 10 mg Oral Q24H ??? enoxaparin 40 mg Subcutaneous Nightly ??? levothyroxine 150 mcg Oral QAM ??? melatonin 3 mg Oral Nightly ??? pantoprazole 40 mg Oral QAM AC ??? QUEtiapine 250 mg Oral Nightly ??? traZODone 50 mg Oral Nightly ??? zonisamide 200 mg Oral Nightly Patient has following PRN medications: bisacodyl, LORazepam, HYDROmorphone, haloperidol, polyethylene glycol (MIRALAX)oral powder, senna-docusate, lidocaine, naphazoline-pheniramine CPG GOAL OUTCOME EVALUATION: Problem: Fracture Orthopaedic (Adult) Goal: Signs and Symptoms of Listed Potential Problems Will be Absent, Minimized or Managed (Fracture Orthopaedic) Signs and symptoms of listed potential problems will be absent, minimized or managed by discharge/transition of care (reference Fracture Orthopaedic (Adult) CPG). Outcome: Ongoing (Interventions Implemented as Appropriate) 09/22/17 1425 Fracture Orthopaedic Problems Assessed (Orthopaedic Fracture) all Problems Present (Orthopaedic Fracture) pain;situational response * Plan of Care - Lisa Person RN - 09/23/2017 2:28 AM EDT Problem: Patient Care Overview Goal: Plan of Care Review Outcome: Ongoing (Interventions Implemented as Appropriate) 09/22/17 1426 09/22/17 2148 Coping/Psychosocial Plan Of Care Reviewed With -- patient Plan of Care Review Progress no change -- OUTCOME EVALUATION NOTE: ? OUTCOME SUMMARY: ? Pt moaning intermittently throughout night. ??PRN dilaudid controlling pain. Ativan give x1 for agitation with good effect. ??Incontinence care provided as needed. ??Caregiver at beside. ??Will continue to monitor. ? PLAN MOVING FORWARD: ? Pain control, mobility, d/c planning ? INDIVIDUALIZED FALL PREVENTION INTERVENTIONS: ? Patient-specific fall risk factors per assessment: [current deficits]:?Cognitive impairment, blindness, pain, narcotics, recent surgery ? Assistance [level of assistance required for transfers and ambulation]:?2 assist w/ walker ? Supervision [direct monitoring required during toileting and ADLs]:?Hands on ? Surveillance [continuous indirect monitoring]:?Masimo, bed alarm, purposeful rounding ? Patient-specific fall prevention interventions for sensory deficits provided, if applicable:?[X]N/A ? CPG GOAL OUTCOME EVALUATION:? * Plan of Care - Tomás Amaro RN - 09/22/2017 2:27 PM EDT Problem: Patient Care Overview Goal: Plan of Care Review Outcome: Ongoing (Interventions Implemented as Appropriate) 09/22/17 1426 Coping/Psychosocial Plan Of Care Reviewed With patient Plan of Care Review Progress no change OUTCOME EVALUATION NOTE: OUTCOME SUMMARY: Pt resting between care throughout shift. Pain adequately controlled w/ PRN and scheduled medications, see MAR. [place] removed by ortho this AM, steri strips applied. Incontinence care provided PRN.Pt combative at times during shift, pinching, lashing arms at staff, and threatening to bite staff.Frequent repositioning encouraged. VSS. Caregiver remained at bedside throughout shift, uninvolved in care. Will continue to monitor. PLAN MOVING FORWARD: Pain control, mobilize, d/c planning INDIVIDUALIZED FALL PREVENTION INTERVENTIONS: Patient-specific fall risk factors per assessment: [current deficits]: Hospital environment, pain medications, impaired mobility Assistance [level of assistance required for transfers and ambulation]: 2 assist w/ turning and repositioning Supervision [direct monitoring required during toileting and ADLs]: Hands on Surveillance [continuous indirect monitoring]: Hourly rounding, GRABIEL Marcano at bedside, call morris within reach, bed alarm/locked Patient-specific fall prevention interventions for sensory deficits provided, if applicable: CPG GOAL OUTCOME EVALUATION: * Plan of Care - Skyler Aviles RN - 09/22/2017 7:44 AM EDT Problem: Patient Care Overview Goal: Plan of Care Review 09/19/17 1734 09/21/17 0908 Coping/Psychosocial Plan Of Care Reviewed With -- patient;caregiver Plan of Care Review Progress improving -- OUTCOME EVALUATION NOTE: OUTCOME SUMMARY: Pt slept well, incontinent of urine, no change in condition. Much better night. PLAN MOVING FORWARD: Plan on discharge soon to his home. INDIVIDUALIZED FALL PREVENTION INTERVENTIONS: Patient-specific fall risk factors per assessment: [current deficits]: Pain meds, impaired cognition and mobility Assistance [level of assistance required for transfers and ambulation]: Moderate assist of 2 for bed mobility Supervision [direct monitoring required during toileting and ADLs]: Eyes on Surveillance [continuous indirect monitoring]: Purposeful rounding Patient-specific fall prevention interventions for sensory deficits provided, if applicable: [X] No CPG GOAL OUTCOME EVALUATION: Goal: Individualization & Mutuality 09/05/17 0607 09/07/17 0504 09/18/17 1253 Individualization Patient Specific Preferences Able to answer yes/no questions -- -- Patient Specific Goals -- -- pain control, mobilize, D/C planning Patient Specific Interventions -- -- frequent incontinence care Mutuality/Individual Preferences What Anxieties, Fears or Concerns Do You Have About Your Health or Care? -- ISHAAN -- What Questions Do You Have About Your Health or Care? -- ISHAAN -- What Information Would Help Us Give You More Personalized Care? -- ISHAAN -- Goal: Fall Prevention-Safe Patient Handling 09/19/17 0809/21/17 [id number] Restraint Interventions Safety Promotion/Fall Prevention -- -- activity supervised Activity Activity Type -- activity adjusted per tolerance -- Activity Assistance Provided assistance, 3 or more people -- -- Assistive Device Utilized front-wheel walker -- -- Positioning Body Position -- independent -- Daily Care Interventions Self-Care Promotion -- independence encouraged;BADL personal objects within reach -- [place] Fall Risk History of Falling -- -- 25 Secondary Diagnosis -- -- 15 Ambulatory Aids -- -- 0 Intravenous Therapy/Heparin/Saline Lock -- -- 0 Gait/Transferring -- -- 20 Mental Status -- -- 15 Score -- -- 75 OTHER [place] Fall Risk -- -- High Goal: Infection Control 09/21/17 [id number]/[id number] Safety Interventions Isolation Precautions standard precautions maintained -- Infection Prevention environmental surveillance performed;rest/sleep promoted;single patient room provided -- Coping Strategies Supportive Measures -- active listening utilized Goal: Discharge Needs Assessment 09/08/17 0403 09/18/17 1250 09/19/17 0920 Discharge Needs Assessment Concerns To Be Addressed -- -- no discharge needs identified Readmission Within The Last 30 Days -- -- no previous admission in last 30 days Equipment Needed After Discharge -- other (see comments) (TBD) -- Current Discharge Risk -- cognitively impaired;physical impairment -- Discharge Disposition -- still a patient -- Current Health Outpatient/Agency/Support Group Needs -- nursing home (specify) -- Anticipated Changes Related to Illness none -- -- Living Environment Transportation Available -- car (caregiver from nursing home) -- Activity/Self Care Review of Systems Equipment Currently Used at Home -- none -- * Plan of Care - Lisa Person RN - 09/21/2017 1:33 PM EDT Problem: Patient Care Overview Goal: Plan of Care Review Outcome: Ongoing (Interventions Implemented as Appropriate) 09/19/17 1734 09/21/17 0908 Coping/Psychosocial Plan Of Care Reviewed With -- patient;caregiver Plan of Care Review Progress improving -- OUTCOME EVALUATION NOTE: ?? OUTCOME SUMMARY: ?? Pt moaning and yelling out intermittently throughout day. PRN dilaudid controlling pain. Incontinence care provided as needed. Caregiver at beside. Will continue to monitor. ?? PLAN MOVING FORWARD: ?? Pain control, mobility, d/c planning ?? INDIVIDUALIZED FALL PREVENTION INTERVENTIONS: ?? Patient-specific fall risk factors per assessment: [current deficits]: Cognitive impairment, blindness, pain, narcotics, recent surgery ?? Assistance [level of assistance required for transfers and ambulation]: 2 assist w/ walker ?? Supervision [direct monitoring required during toileting and ADLs]: Hands on ?? Surveillance [continuous indirect monitoring]: Masimo, bed alarm, purposeful rounding ?? Patient-specific fall prevention interventions for sensory deficits provided, if applicable: [X] N/A ? CPG GOAL OUTCOME EVALUATION: ?? * Plan of Care - Skyler Aviles RN - 09/21/2017 1:38 AM EDT Problem: Patient Care Overview Goal: Plan of Care Review 09/19/17 1734 09/20/17 0908 Coping/Psychosocial Plan Of Care Reviewed With -- caregiver;patient Plan of Care Review Progress improving -- OUTCOME EVALUATION NOTE: OUTCOME SUMMARY: Pt continues to moan and yell. Some though not all due to pain. Unclear what else causes it. Pt incontinent urine. No change in overall condition. PLAN MOVING FORWARD: Continue to keep pt safe, mobilize as tolerated, pain control. INDIVIDUALIZED FALL PREVENTION INTERVENTIONS: Patient-specific fall risk factors per assessment: [current deficits]: Impaired mobility and cognition Assistance [level of assistance required for transfers and ambulation]: 1-2 assist for bed mobility Supervision [direct monitoring required during toileting and ADLs]: Eyes on Surveillance [continuous indirect monitoring]: Purposeful rounding Patient-specific fall prevention interventions for sensory deficits provided, if applicable: [X] No CPG GOAL OUTCOME EVALUATION: Goal: Individualization & Mutuality 09/05/17 0607 09/07/17 0504 09/18/17 1253 Individualization Patient Specific Preferences Able to answer yes/no questions -- -- Patient Specific Goals -- -- pain control, mobilize, D/C planning Patient Specific Interventions -- -- frequent incontinence care Mutuality/Individual Preferences What Anxieties, Fears or Concerns Do You Have About Your Health or Care? -- ISHAAN -- What Questions Do You Have About Your Health or Care? -- ISHAAN -- What Information Would Help Us Give You More Personalized Care? -- ISHAAN -- Goal: Fall Prevention-Safe Patient Handling 09/19/17 0800 09/20/17 0908 09/21/17 0100 Restraint Interventions Safety Promotion/Fall Prevention -- activity supervised;fall prevention program maintained;safety round/check completed -- Activity Activity Type -- activity adjusted per tolerance -- Activity Assistance Provided assistance, 3 or more people -- -- Assistive Device Utilized front-wheel walker -- -- Positioning Body Position -- -- independent Daily Care Interventions Self-Care Promotion -- independence encouraged;BADL personal objects within reach -- [place] Fall Risk History of Falling -- 25 -- Secondary Diagnosis -- 15 -- Ambulatory Aids -- 0 -- Intravenous Therapy/Heparin/Saline Lock -- 0 -- Gait/Transferring -- 20 -- Mental Status -- 15 -- Score -- 75 -- OTHER [place] Fall Risk -- High -- Goal: Infection Control 09/20/17 09 Safety Interventions Isolation Precautions standard precautions maintained Infection Prevention environmental surveillance performed;rest/sleep promoted;single patient room provided Coping Strategies Supportive Measures active listening utilized Goal: Discharge Needs Assessment 09/08/17 0403 09/18/17 1250 09/19/17 0920 Discharge Needs Assessment Concerns To Be Addressed -- -- no discharge needs identified Readmission Within The Last 30 Days -- -- no previous admission in last 30 days Equipment Needed After Discharge -- other (see comments) (TBD) -- Current Discharge Risk -- cognitively impaired;physical impairment -- Discharge Disposition -- still a patient -- Current Health Outpatient/Agency/Support Group Needs -- nursing home (specify) -- Anticipated Changes Related to Illness none -- -- Living Environment Transportation Available -- car (caregiver from nursing home) -- Activity/Self Care Review of Systems Equipment Currently Used at Home -- none -- * Plan of Care - Lisa Person RN - 09/20/2017 1:31 PM EDT Problem: Patient Care Overview Goal: Plan of Care Review Outcome: Ongoing (Interventions Implemented as Appropriate) 09/19/17173309/20/17 0908 Coping/Psychosocial Plan Of Care Reviewed With -- caregiver;patient Plan of Care Review Progress improving -- OUTCOME EVALUATION NOTE: OUTCOME SUMMARY: Pt moaning and yelling out intermittently throughout day. PRN dilaudid controlling pain. Incontinence care provided as needed. Caregiver at beside. Will continue to monitor. PLAN MOVING FORWARD: Pain control, mobility, d/c planning INDIVIDUALIZED FALL PREVENTION INTERVENTIONS: Patient-specific fall risk factors per assessment: [current deficits]: Cognitive impairment, blindness, pain, narcotics, recent surgery Assistance [level of assistance required for transfers and ambulation]: 2 assist w/ walker Supervision [direct monitoring required during toileting and ADLs]: Hands on Surveillance [continuous indirect monitoring]: Masimo, bed alarm, purposeful rounding Patient-specific fall prevention interventions for sensory deficits provided, if applicable: [X] N/A CPG GOAL OUTCOME EVALUATION: * Plan of Care - Skyler Aviles RN - 09/20/2017 3:44 AM EDT Problem: Patient Care Overview Goal: Plan of Care Review 09/19/17 1734 Coping/Psychosocial Plan Of Care Reviewed With patient Plan of Care Review Progress improving OUTCOME EVALUATION NOTE: OUTCOME SUMMARY: Pt yelling out frequently until about 1a.m. Incontinent of urine. Pt transferred from chair to bed with minimal assist of 2 and walker tolerated well. PLAN MOVING FORWARD: Mobilize as tolerated, anticipate discharge soon. INDIVIDUALIZED FALL PREVENTION INTERVENTIONS: Patient-specific fall risk factors per assessment: [current deficits]: Impaired mobility, pain meds, impaired cognition Assistance [level of assistance required for transfers and ambulation]: Up with walker and 2 assistto chair Supervision [direct monitoring required during toileting and ADLs]: Eyes on Surveillance [continuous indirect monitoring]: Purposeful rounding Patient-specific fall prevention interventions for sensory deficits provided, if applicable: [X] No CPG GOAL OUTCOME EVALUATION: Goal: Individualization & Mutuality 09/05/17 0607 09/07/17 0504 09/18/17 1253 Individualization Patient Specific Preferences Able to answer yes/no questions -- -- Patient Specific Goals -- -- pain control, mobilize, D/C planning Patient Specific Interventions -- -- frequent incontinence care Mutuality/Individual Preferences What Anxieties, Fears or Concerns Do You Have About Your Health or Care? -- ISHAAN -- What Questions Do You Have About Your Health or Care? -- ISHAAN -- What Information Would Help Us Give You More Personalized Care? -- ISHAAN -- Goal: Fall Prevention-Safe Patient Handling 09/18/17 0930 09/19/17 0800 09/20/17 0100 Restraint Interventions Safety Promotion/Fall Prevention -- -- activity supervised Activity Activity Type -- -- activity adjusted per tolerance Activity Assistance Provided -- assistance, 3 or more people -- Assistive Device Utilized -- front-wheel walker -- Positioning Body Position -- -- supine, head elevated Daily Care Interventions Self-Care Promotion independence encouraged;BADL personal objects within reach -- -- [place] Fall Risk History of Falling -- -- 25 Secondary Diagnosis -- -- 15 Ambulatory Aids -- -- 0 Intravenous Therapy/Heparin/Saline Lock -- -- 0 Gait/Transferring -- -- 20 Mental Status -- -- 15 Score -- -- 75 OTHER [place] Fall Risk -- -- High Goal: Infection Control 09/19/17 0800 Safety Interventions Isolation Precautions standard precautions maintained Infection Prevention environmental surveillance performed;personal protective equipment utilized;rest/sleep promoted;single patient room provided Coping Strategies Supportive Measures positive reinforcement provided;relaxation techniques promoted;self-care encouraged;verbalization of feelings encouraged Goal: Discharge Needs Assessment 09/08/17 0403 09/18/17 1250 09/19/17 0920 Discharge Needs Assessment Concerns To Be Addressed -- -- no discharge needs identified Readmission Within The Last 30 Days -- -- no previous admission in last 30 days Equipment Needed After Discharge -- other (see comments) (TBD) -- Current Discharge Risk -- cognitively impaired;physical impairment -- Discharge Disposition -- still a patient -- Current Health Outpatient/Agency/Support Group Needs -- nursing home (specify) -- Anticipated Changes Related to Illness none -- -- Living Environment Transportation Available -- car (caregiver from nursing home) -- Activity/Self Care Review of Systems Equipment Currently Used at Home -- none -- * Plan of Care - Lori Ordaz RN - 09/19/2017 5:52 PM EDT Problem: Patient Care Overview Goal: Plan of Care Review Outcome: Ongoing (Interventions Implemented as Appropriate) 09/19/17 8704 Coping/Psychosocial Plan Of Care Reviewed With patient Plan of Care Review Progress improving OUTCOME EVALUATION NOTE: OUTCOME SUMMARY: Pt is alert. Pt was able to get OOB to the chair today and take a few steps remained NWB with use of the FWW. RN accompanied pt to x-ray, unable to get image as pt became combative and was not redirectable. PRN pain meds and ativan provided for pt, did not appear to show good relief. Pt continued to moan/yell out throughout the shift. Caregiver remains at the bedside, uninvolved in direct pt care. Call morris within reach. VSS. Will continue to monitor. PLAN MOVING FORWARD: Pain management, improve mobility, d/c planning INDIVIDUALIZED FALL PREVENTION INTERVENTIONS: Patient-specific fall risk factors per assessment: [current deficits]: Hospital environment, blindness, pain, impaired mobility Assistance [level of assistance required for transfers and ambulation]: 2-3 assist w/ FWW, NWB LLE Supervision [direct monitoring required during toileting and ADLs]: Hands on Surveillance [continuous indirect monitoring]: Pt declines masimo, hourly rounding Patient-specific fall prevention interventions for sensory deficits provided, if applicable: [X] Yes * Consult Note - Isabel Garcia RN - 09/19/2017 4:23 PM EDT Certified Wound Care Nurse Note Situation: Asked to see Miguel Angel Mason for follow For low baljeet Background: eD-H notes reviewed for history, admitting diagnosis and active problem list. Wound Assessment and Care Provided: Patient greeted and reason for visit stated. Caregiver at bedside and agreed to assessment and treatment. Elbows, knees, heels and and sacrum all pink and blanchable. There is edna wound erythema noted to transverse abdominal staple line. Per RN report team awareof erythema. Baljeet Score: 15 Last Pressure Ulcer Prevention assessment: Shift Pressure Injury Prevention Occiput: No Injury Thoracic Spine: No Injury Sacral: No Injury Ischial - left: No Injury Ischial - right: No Injury Heel - left: No Injury Heel - right: No Injury Elbow - left: No Injury Elbow - right: No Injury Device Sites: no devices Other Sites: (traction) Existing Wounds: Incision 09/04/17 1005 Left lateral hip (Active) Incision WDL ex 09/19/2017 8:00 AM Dressing Appearance other (see comments) 09/19/2017 8:00 AM Appearance carisa intact;well approximated;redness;tenderness;warmth 09/19/2017 8:00 AM Drainage Characteristics/Odor serous 09/08/2017 7:37 PM Drainage Amount none 09/19/2017 8:00 AM Wound Interventions antibiotic ointment applied 09/18/2017 7:20 PM Dressing open to air 09/19/2017 8:00 AM Incision 09/04/17 1128 transverse abdomen (Active) Incision WDL ex 09/19/2017 8:00 AM Dressing Appearance other (see comments) 09/19/2017 8:00 AM Appearance tenderness;warmth;redness 09/19/2017 8:00 AM Drainage Amount none 09/19/2017 8:00 AM Wound Interventions antibiotic ointment applied 09/18/2017 7:20 PM Dressing open to air 09/19/2017 8:00 AM Incision 09/04/17 1202 Left lateral thigh (Active) Incision WDL WDL 09/19/2017 8:00 AM Dressing Appearance other (see comments) 09/19/2017 8:00 AM Appearance carisa intact;well approximated 09/19/2017 8:00 AM Drainage Amount none 09/19/2017 8:00 AM Dressing open to air 09/19/2017 8:00 AM Nutritional Status Wt Readings from Last 1 Encounters: 09/04/17 86.6 kg (191 lb) [facility] Assessment:Patient with no active pressure injury's at this time. Wound care will complete consult at this time, please re consult with any questions or concerns Wound Care Recommendations: Mepilex Border dressing to sacrum-nursing to change every 3 days and as needed for dressing with 50% or greater strike though drainage. : 1. Cleanse wound with dermal wound cleanser. 2. Apply Mepilex Border dressing Refer to adult/pediatric pressure ulcer prevention job aid in the clinical policy library. Discussed plan with: RN: Lori Please contact Isabel Garcia RN on pager or the wound care team at [phone] or pager [phone] withskin and wound care concerns or questions. * Plan of Care - Ren Walters OTA - 09/19/2017 11:10 AM EDT Occupational Therapy Treatment Note Pertinent History of Current Problem: (P) Pt is a 27 yo man with a history of resection of pituitary tumor, intraoperative hemorrhage and CVA, cognitive impairment, cortical blindness, partial L sided paralysis, seizure disorder, and panhypopituitarism (with DI, adrenal insufficiency, hypothyroidism, hypogonadism) here with a left acetabular fracture that occurred in the setting of a possible seizure. Precautions/Restrictions: (P) fall, weight bearing Precautions Comments: (P) NWB L LE, L side weaker than R at baseline Assessment: Pt was seen today for skilled OT. Session focussed on following simple commands and LB dressing. Pt presented more agitated than previous sessions. Pt required multiple VCs to not rip hisclothing and pull his L leg up to his chest because of the pain. Pt was able to don socks on both feet but quickly ripped them off. Pt did calm down when lunch arrived and was able to tolerate sitting in recliner for extended period of time and for lunch. Next session will focus on toileting and grooming goals. Pt will benefit from ongoing therapeutic interventions to achieve pt's and therapy goals. Please refer to associated flowsheet data listed below for treatment session details. Staff Recommendations: Encourage OOB activity and participation in all self care tasks Anticipated Discharge Disposition: half-way facility Pager: [phone] ZULMA Vargas 09/20/2017 Occupational Therapy Rehabilitation Department 09/19/17 1110 Rehab Evaluation Document Type therapy note (daily note) Total Evaluation Minutes, Occupational Therapy 35 Patient Effort poor Symptoms Noted During/After Treatment (crying out, more aggressive) General Information Patient Profile Review yes Patient/Family/Caregiver Comments/Observations pt crying out and ripping clothing this session General Observations of Patient Pt sitting in recliner when therapy began Pertinent History of Current Problem Pt is a 27 yo man with a history of resection of pituitary tumor, intraoperative hemorrhage and CVA, cognitive impairment, cortical blindness, partial L sided paralysis, seizure disorder, and panhypopituitarism (with DI, adrenal insufficiency, hypothyroidism, hyp ogonadism) here with a left acetabular fracture that occurred in the setting of a possible seizure. Hearing Precautions/Limitations WNL Precautions/Restrictions fall;weight bearing Precautions Comments NWB L LE, L side weaker than R at baseline Limitations/Impairments safety/cognitive Treatment Number OT 4 Cognitive Assessment Interventions Behavior/Mood Observations (Cognitive) agitated Orientation Status (Cognitive) unable/difficult to assess Attention (Cognitive) unable/difficult to assess Follows Commands/Answers Questions (Cognitive) 25% of the time Personal Safety (Cognitive) severe impairment Pain Scale/Rating Pain Assessment Scale Faces (Roberson-Carter FACES Pain Rating Scale) Pain Level 5 Lower Body Dressing Assessment/Training Position (LB Dressing) sitting (in recliner) [place] Level (LB Dressing) verbal cues required;set up required Impairments (LB Dressing) vision impaired Comment (LB Dressing) pt able to don then quickly doffed socks LB Dressing Goal LB Dressing Goal, Time to Achieve 2 wks LB Dressing Goal, Activity Type Pt will maintain weight bearing restrictions and be able to sustainstanding with 1 assist and walker as caregiver hikes pants to/from waist. Occupational Therapy Goal OT Goal, Time to Achieve 2 wks OT Goal, Activity Type Pt will tolerate sitting upright in chair for > 30 min for ther. activity/play task. Clinical Impression Criteria for Skilled Therapeutic Interventions Met yes;treatment indicated Rehab Potential fair, will monitor progress closely Therapy Frequency 2-4 times/wk * Plan of Care - Louis Doran PTA - 09/19/2017 10:45 AM EDT Physical Therapy Treatment Treatment Number PT: 4 Pertinent History of Current Problem: Pt is a 27 yo man with a history of resection of pituitary tumor, intraoperative hemorrhage and CVA, cognitive impairment, cortical blindness, partial L sided paralysis, seizure disorder, and panhypopituitarism (with DI, adrenal insufficiency, hypothyroidism, hy pogonadism) here with a left acetabular fracture that occurred in the setting of a possible seizure. Precautions/Restrictions: fall, weight bearing Precautions Comments: NWB L LE, L side weaker than R at baseline Assessment: Pt seen for functional mobility, strength, endurance and pt education. Pt able to sit himself at the edge of bed with supervision and verbal cues. Benefits from having frequent and singlestep verbal cues prior to tactile cues, mobilized well with extra time provided. Maintained NWB to L LE as pt remained flexed at the hip and knee with upright activities. Crying out throughout session, difficult to determine whether pt was experiencing pain during mobility. Ambulated a short distance with frequent cues for hopping, chair follow provided. Encourage out of bed to recliner chair daily to progress mobility. Please see the flow sheet below for patient details and mobility. Pt would benefit from ongoing physical therapy interventions. Staff Mobility Recommendations: Stand pivot transfer with FWW, 2 assist LOUIS DORAN PTA Pager: [phone] Inpatient Physical Therapy 09/19/17 1045 Rehab Evaluation Document Type therapy note (daily note) Total Evaluation Minutes, Physical Therapy 20 (TE-F x 1) Patient Effort good Symptoms Noted During/After Treatment other (see comments) (crying out) General Information Patient/Family/Caregiver Comments/Observations crying out, did respond with awesome when asked ifsitting in the chair felt ok Pertinent History of Current Problem Pt is a 27 yo man with a history of resection of pituitary tumor, intraoperative hemorrhage and CVA, cognitive impairment, cortical blindness, partial L sided paralysis, seizure disorder, and panhypopituitarism (with DI, adrenal insufficiency, hypothyroidism, hyp ogonadism) here with a left acetabular fracture that occurred in the setting of a possible seizure. Precautions/Restrictions fall;weight bearing Precautions Comments NWB L LE, L side weaker than R at baseline Treatment Number PT 4 Pain Scale/Rating Pain Assessment Scale Faces (Roberson-Carter FACES Pain Rating Scale) Pain Level 2 Bed Mobility Assessment/Treatment Assistive Device (Bed Mobility) bed rails Sthold-yn-Hge [place] (Bed Mobility) verbal cues required;supervision required Comment (Bed Mobility) extra time required, HOB elevated Transfer Assessment/Treatment Bed-Chair [place] (Transfers) minimum assist (75% patient effort);2 person assist required Chair-Bed [place] (Transfers) minimum assist (75% patient effort);2 person assist required Zgh-[id number] Assistive Device (Transfers) rolling walker [place] (Sit-Stand Transfers) minimum assist (75% patient effort);2 person assist required [place] (Stand-Sit Transfers) minimum assist (75% patient effort);2 person assist required Byf-[id number]-[id number] Assistive Device (Transfers) rolling walker Maintain Weight Bearing Status (Transfers) able to maintain weight bearing status Impairments (Transfers) balance impaired;pain;strength decreased;vision impaired Comment (Transfers) Step by step instructions and cues, pt held L LE above the ground with a flexedhip and knee position throughout transfer Gait Assessment/Treatment [place] (Gait) minimum assist (75% patient effort);2 person assist required Assistive Device (Gait) rolling walker Distance in Feet (Gait) 10 ft Gait Pattern Analysis swing-to gait Maintain Weight Bearing Status (Gait) able to maintain weight bearing status Impairments (Gait) balance impaired;pain;strength decreased;vision impaired Comment (Gait) step by step cues, pt able to hop forward Plan of Care Review Plan Of Care Reviewed With patient;caregiver Bed Mobility Goal Bed Mobility Goal, Date Established 09/09/17 Bed Mobility Goal, Time to Achieve by discharge Bed Mobility Goal, Activity Type all bed mobility activities Bed Mobility Goal, [place] Level moderate assist (50% patient effort) Bed Mobility Goal, Outcome Achieved goal ongoing Gait Training Goal Gait Training Goal, Date Established 09/09/17 Gait Training Goal, Time to Achieve by discharge Gait Training Goal, [place] Level minimum assist (75% patient effort) Gait Training Goal, Assist Device walker, rolling Gait Training Goal, Distance to Achieve 15 ft Gait Training Goal, Outcome goal ongoing Transfer Training Goal Transfer Training Goal, Date Established 09/09/17 Transfer Training Goal, Time to Achieve by discharge Transfer Training Goal, Activity Type [id number]-nw-[id number] Transfer Train Goal, [place] Level minimum assist (75% patient effort) Transfer Training Goal, Assist Device walker, rolling Transfer Training Goal, Outcome goal ongoing Physical Therapy Goal PT Goal, Date Established 09/09/17 PT Goal, Time to Achieve by discharge PT Goal, Activity Type Pt will propel self in w/c household distances PT Goal, [place] Level set up required;supervision required PT Goal, Outcome goal ongoing Clinical Impression Therapy Frequency 2-4 times/wk Anticipated Equipment Needs at Discharge front wheeled walker Anticipated Discharge Disposition half-way facility (could go to [facility] with assistance) * Plan of Care - Laura Vasquez RN - 09/18/2017 11:43 PM EDT Problem: Patient Care Overview Goal: Plan of Care Review Outcome: Ongoing (Interventions Implemented as Appropriate) 09/17/17 1524 09/18/17 1920 Coping/Psychosocial Plan Of Care Reviewed With -- patient;caregiver Plan of Care Review Progress no change -- OUTCOME EVALUATION NOTE: OUTCOME SUMMARY: This patient's skin remains intact at this time with no reddened areas. Pt currently repositioning self in bed every 2 hrs. Pt verbalizes understanding to reposition self every 2 hrs to prevent skin breakdown and alert nurse when help is needed to do so. Will continue to monitor. This patient reports that his pain is adequately managed with the ordered medication regimen. This patient denies chest pain, shortness of breath, and nausea. The patient's incision is to the remains clean, dry, and intact, open to air. Last recorded vital signs: Last value Temperature Temp: 37.5 ??C (99.5 ??F) Heart Rate Heart Rate: 84 Blood Pressure BP: 116/69 Respiratory Rate Resp: 22 SpO2 SpO2: 98 % Recorded I/O: PLAN MOVING FORWARD: The plan moving forward with this patient is to work with PT/OT to increase this patients independence with ADLs. INDIVIDUALIZED FALL PREVENTION INTERVENTIONS: Patient-specific fall risk factors per assessment: [current deficits]: This patient has decreased his mobility and sensory impairment in relation to receiving the medication dilaudid.. Assistance [level of assistance required for transfers and ambulation]: This patient requires two assist and a front wheel walker to ambulate. Supervision [direct monitoring required during toileting and ADLs]: This patient requires one assist with ADLs. Surveillance [continuous indirect monitoring]: Jeet, nursing knowledge exchange, purposeful rounding. Patient has history of: No past medical history on file. Past Surgical History: Procedure Laterality Date ??? PRO OPEN CROSSCUTTER ROLLED GLASS FIX ACETABULAR FX Left 09/04/2017 @OPEN TREATMENT, ACETABULAR FX (WRVU 25.41) performed by Amy Lance MD at [facility] MAIN OR Patient has following SCHEDULED medications: ??? methyl salicylate-menthol Topical (Top) BID ??? desmopressin 0.05 mg Oral Q8H ??? calcium carbonate 500 mg Oral BID ??? cholecalciferol (Vitamin D3) 1,000 Units Oral Daily ??? hydrocortisone 20 mg Oral QAM ??? hydrocortisone 10 mg Oral Daily at Noon ??? hydrocortisone 10 mg Oral Q24H ??? enoxaparin 40 mg Subcutaneous Nightly ??? levothyroxine 150 mcg Oral QAM ??? melatonin 3 mg Oral Nightly ??? pantoprazole 40 mg Oral QAM AC ??? QUEtiapine 250 mg Oral Nightly ??? traZODone 50 mg Oral Nightly ??? sodium chloride 0.9 % 5 mL Intravenous BID ??? zonisamide 200 mg Oral Nightly Patient has following PRN medications: HYDROmorphone, haloperidol, LORazepam, polyethylene glycol (MIRALAX)oral powder, senna-docusate, sodium chloride 0.9 %, lidocaine, naphazoline-pheniramine CPG GOAL OUTCOME EVALUATION: Goal: Individualization & Mutuality Outcome: Ongoing (Interventions Implemented as Appropriate) 09/18/17 1253 Individualization Patient Specific Goals pain control, mobilize, D/C planning Patient Specific Interventions frequent incontinence care Goal: Fall Prevention-Safe Patient Handling Outcome: Ongoing (Interventions Implemented as Appropriate) 09/18/17 1645 09/18/17 1846 09/18/17 1920 Restraint Interventions Safety Promotion/Fall Prevention -- -- activity supervised;fall prevention program maintained;nonskid shoes/slippers when out of bed;safety round/check completed Activity Activity Type activity adjusted per tolerance -- -- Positioning Body Position -- supine, head elevated -- Goal: Infection Control Outcome: Ongoing (Interventions Implemented as Appropriate) 09/18/17 0930 09/18/17 1920 Safety Interventions Isolation Precautions standard precautions maintained -- Infection Prevention rest/sleep promoted;single patient room provided -- Coping Strategies Supportive Measures -- active listening utilized;positive reinforcement provided;relaxation techniques promoted Goal: Discharge Needs Assessment Outcome: Ongoing (Interventions Implemented as Appropriate) 09/18/17 1250 Discharge Needs Assessment Concerns To Be Addressed no discharge needs identified Readmission Within The Last 30 Days no previous admission in last 30 days Current Health Outpatient/Agency/Support Group Needs nursing home (specify) Goal: Interdisciplinary Rounds/Family Conf Outcome: Ongoing (Interventions Implemented as Appropriate) 09/18/17 1249 Interdisciplinary Rounds/Family Conf Participants nursing;patient;physician;other (see comments) (caregiver) Problem: Skin Integrity Impairment, Risk/Actual (Adult) Goal: Skin Integrity/Wound Healing Patient will demonstrate the desired outcomes by discharge/transition of care. Outcome: Ongoing (Interventions Implemented as Appropriate) 09/18/17 1249 Skin Integrity Impairment, Risk/Actual (Adult) Skin Integrity/Wound Healing making progress toward outcome Problem: Fracture Orthopaedic (Adult) Goal: Signs and Symptoms of Listed Potential Problems Will be Absent, Minimized or Managed (Fracture Orthopaedic) Signs and symptoms of listed potential problems will be absent, minimized or managed by discharge/transition of care (reference Fracture Orthopaedic (Adult) CPG). Outcome: Ongoing (Interventions Implemented as Appropriate) 09/18/17 0930 Fracture Orthopaedic Problems Assessed (Orthopaedic Fracture) all Problems Present (Orthopaedic Fracture) pain;situational response * Plan of Care - Chela Lees RN - 09/18/2017 6:49 PM EDT Problem: Patient Care Overview Goal: Plan of Care Review Outcome: Ongoing (Interventions Implemented as Appropriate) 09/17/17 1524 09/18/17 0930 Coping/Psychosocial Plan Of Care Reviewed With -- patient;caregiver Plan of Care Review Progress no change -- OUTCOME EVALUATION NOTE: OUTCOME SUMMARY: Pain tolerable this shift, PRN dilaudid 4 mg given with + effect. Pt agitated this morning, ativan 0.5 mg given with + effect. Down to X-ray late this morning, films not done due to pt inablity to stay still during x-ray. Will have to go for X-ray again sedated per MD. PRN haldol given early this afternoon for increased agitation, pt not redirectable. Pt frequently incontinent, incontinence care done with 2 assist. Up to chair this evening 3 assist with FWW, tolerated fairly well. Needs queing with weightbearing restrictions. One time dose on dilaudid given per MD for increased pain with + effect. Will continue to monitor and help reach D/C goals. PLAN MOVING FORWARD: Pain control, mobilize, D/C planning INDIVIDUALIZED FALL PREVENTION INTERVENTIONS: Patient-specific fall risk factors per assessment: [current deficits]: Hospital environment, impaired mobility, acute pain, narcotic pain medication, impulsive, cognitively impaired Assistance [level of assistance required for transfers and ambulation]: 2 assist with repositioning Supervision [direct monitoring required during toileting and ADLs]: 2 assist, incontinence care Surveillance [continuous indirect monitoring]: Hourly rounding, call morris in reach, lennoxo, caregiver at bedside Patient-specific fall prevention interventions for sensory deficits provided, if applicable: N/A CPG GOAL OUTCOME EVALUATION: * Plan of Care - Laura Vasquez RN - 09/18/2017 4:18 AM EDT Problem: Patient Care Overview Goal: Plan of Care Review Outcome: Ongoing (Interventions Implemented as Appropriate) 09/17/17 1524 09/17/17 2110 Coping/Psychosocial Plan Of Care Reviewed With -- patient Plan of Care Review Progress no change -- OUTCOME EVALUATION NOTE: OUTCOME SUMMARY: This patient's skin remains intact at this time with no reddened areas. Pt currently repositioning self in bed every 2 hrs. Pt verbalizes understanding to reposition self every 2 hrs to prevent skin breakdown and alert nurse when help is needed to do so. Will continue to monitor. This patient reports that his pain is adequately managed with the ordered medication regimen. This patient denies chest pain, shortness of breath, and nausea. The patient's abdomen remains clean, dry, and intact.The hip remains CDI. Last recorded vital signs: Last value Temperature Temp: 37.2 ??C (99 ??F) Heart Rate Heart Rate: 84 Blood Pressure BP: 126/83 Respiratory Rate Resp: 22 SpO2 SpO2: 98 % Recorded I/O: PLAN MOVING FORWARD: The plan moving forward with this patient is to work with PT/OT to increase this patients independence with ADLs. INDIVIDUALIZED FALL PREVENTION INTERVENTIONS: Patient-specific fall risk factors per assessment: [current deficits]: This patient has decreased his mobility and sensory impairment in relation to receiving the medication hydromorphone. Assistance [level of assistance required for transfers and ambulation]: This patient requires 2 assist and a front wheelchair to ambulate. Supervision [direct monitoring required during toileting and ADLs]: This patient requires 1 assist with ADLs. Surveillance [continuous indirect monitoring]: Jeet, nursing knowledge exchange, purposeful rounding. Patient has history of: No past medical history on file. Past Surgical History: Procedure Laterality Date ??? PRO OPEN CROSSCUTTER ROLLED GLASS FIX ACETABULAR FX Left 09/04/2017 @OPEN TREATMENT, ACETABULAR FX (WRVU 25.41) performed by Amy Lance MD at [facility] MAIN OR Patient has following SCHEDULED medications: ??? methyl salicylate-menthol Topical (Top) BID ??? desmopressin 0.05 mg Oral Q8H ??? calcium carbonate 500 mg Oral BID ??? cholecalciferol (Vitamin D3) 1,000 Units Oral Daily ??? hydrocortisone 20 mg Oral QAM ??? hydrocortisone 10 mg Oral Daily at Noon ??? hydrocortisone 10 mg Oral Q24H ??? enoxaparin 40 mg Subcutaneous Nightly ??? levothyroxine 150 mcg Oral QAM ??? melatonin 3 mg Oral Nightly ??? pantoprazole 40 mg Oral QAM AC ??? QUEtiapine 250 mg Oral Nightly ??? traZODone 50 mg Oral Nightly ??? sodium chloride 0.9 % 5 mL Intravenous BID ??? zonisamide 200 mg Oral Nightly Patient has following PRN medications: HYDROmorphone, haloperidol, LORazepam, polyethylene glycol (MIRALAX)oral powder, senna-docusate, sodium chloride 0.9 %, lidocaine, naphazoline-pheniramine CPG GOAL OUTCOME EVALUATION: Goal: Fall Prevention-Safe Patient Handling Outcome: Ongoing (Interventions Implemented as Appropriate) 03/14/18 2110 Restraint Interventions Safety Promotion/Fall Prevention activity supervised;fall prevention program maintained;nonskid shoes/slippers when out of bed;safety round/check completed Activity Activity Type activity adjusted per tolerance Activity Assistance Provided assistance, 2 people Goal: Infection Control Outcome: Ongoing (Interventions Implemented as Appropriate) 09/17/17 2110 Safety Interventions Isolation Precautions standard precautions maintained Infection Prevention rest/sleep promoted Coping Strategies Supportive Measures positive reinforcement provided;relaxation techniques promoted Goal: Discharge Needs Assessment Outcome: Ongoing (Interventions Implemented as Appropriate) 09/15/17 1347 Discharge Needs Assessment Readmission Within The Last 30 Days no previous admission in last 30 days Goal: Interdisciplinary Rounds/Family Conf Outcome: Ongoing (Interventions Implemented as Appropriate) 09/17/17 1523 Interdisciplinary Rounds/Family Conf Participants nursing;patient;physician Problem: Skin Integrity Impairment, Risk/Actual (Adult) Goal: Skin Integrity/Wound Healing Patient will demonstrate the desired outcomes by discharge/transition of care. Outcome: Ongoing (Interventions Implemented as Appropriate) 09/17/17 1523 Skin Integrity Impairment, Risk/Actual (Adult) Skin Integrity/Wound Healing making progress toward outcome * Plan of Care - Ren Walters OTA - 09/17/2017 3:41 PM EDT Occupational Therapy Treatment Note Pertinent History of Current Problem: (P) Pt is a 27 yo man with a history of resection of pituitary tumor, intraoperative hemorrhage and CVA, cognitive impairment, cortical blindness, partial L sided paralysis, seizure disorder, and panhypopituitarism (with DI, adrenal insufficiency, hypothyroidism, hypogonadism) here with a left acetabular fracture that occurred in the setting of a possible seizure. Precautions/Restrictions: (P) fall, weight bearing Precautions Comments: (P) L side weaker than R at baseline. Blind. Assessment: Pt was seen today for skilled OT. Session focussed on pt following commands and activity participating with therapy. Pt was able to roll both L and R to assist with changing his js 2/2incontinents of urine. Pt was also able to perform minimal grooming activities while still in bed. Pt followed commands with extended time and appeared in better spirits today than previous session. N ext session will focus on EOB activities. Pt will benefit from ongoing therapeutic interventions toachieve pt's and therapy goals. Please refer to associated flowsheet data listed below for treatment session details. Staff Recommendations: Encourage OOB activity and participation in all self care tasks Anticipated Discharge Disposition: (P) half-way facility Pager: [phone] ZULMA Vargas 09/17/2017 Occupational Therapy Rehabilitation Department 09/17/17 0575 Rehab Evaluation Document Type therapy note (daily note) Total Evaluation Minutes, Occupational Therapy 23 Patient Effort good Symptoms Noted During/After Treatment increased pain General Information Patient Profile Review yes Patient/Family/Caregiver Comments/Observations yes, why when asked if the warm wash cloth felt nice. General Observations of Patient Pt laying in bed when therapy began Pertinent History of Current Problem Pt is a 27 yo man with a history of resection of pituitary tumor, intraoperative hemorrhage and CVA, cognitive impairment, cortical blindness, partial L sided paralysis, seizure disorder, and panhypopituitarism (with DI, adrenal insufficiency, hypothyroidism, hyp ogonadism) here with a left acetabular fracture that occurred in the setting of a possible seizure. Hearing Precautions/Limitations WNL Precautions/Restrictions fall;weight bearing Precautions Comments L side weaker than R at baseline. Blind. Limitations/Impairments safety/cognitive Treatment Number OT 3 Cognitive Assessment Interventions Behavior/Mood Observations (Cognitive) cooperative;lethargic Orientation Status (Cognitive) unable/difficult to assess Attention (Cognitive) unable/difficult to assess Follows Commands/Answers Questions (Cognitive) 75% of the time Personal Safety (Cognitive) severe impairment Pain Scale/Rating Pain Assessment Scale Faces (Roberson-Carter FACES Pain Rating Scale) Pain Level 3 Bed Mobility Assessment/Treatment Roll Left [place] (Bed Mobility) minimum assist (75% patient effort);nonverbal cues required (demo/gesture);verbal cues required Roll Right [place] (Bed Mobility) verbal cues required;nonverbal cues required (demo/gesture) ADL Assessment/Intervention Additional Documentation Grooming Assessment/Training (Group) Grooming Assessment/Training Position (Grooming) (supine in bed with HOB raised) [place] Level (Grooming) set up required;verbal cues required Impairments (Grooming) other (see comments) (cognative) Comment (Grooming) pt able to wash his face and stomach Plan of Care Review Plan Of Care Reviewed With patient Progress no change Clinical Impression Criteria for Skilled Therapeutic Interventions Met yes;treatment indicated Rehab Potential good, to achieve stated therapy goals Therapy Frequency 2-4 times/wk Anticipated Discharge Disposition half-way facility * Plan of Care - Lenore Yates RN - 09/17/2017 3:28 PM EDT Problem: Patient Care Overview Goal: Plan of Care Review Outcome: Ongoing (Interventions Implemented as Appropriate) 09/17/17 1524 Coping/Psychosocial Plan Of Care Reviewed With patient Plan of Care Review Progress no change OUTCOME EVALUATION NOTE: OUTCOME SUMMARY: Pt is alert. Resting between care. Caregiver at bedside. Pain controlled w/ prn dilaudid, see MAR. After working w/ OT in the afternoon pt became more agitated, prn ativan given. Pt incontinent of urine throughout shift, incontinence care provided. Will continue to monitor. PLAN MOVING FORWARD: Pain control Mobilize INDIVIDUALIZED FALL PREVENTION INTERVENTIONS: Patient-specific fall risk factors per assessment: [current deficits]: Impaired mobility Impaired cognition Visually impaired Assistance [level of assistance required for transfers and ambulation]: 2 assist to reposition and provide incontinence care Supervision [direct monitoring required during toileting and ADLs]: Hands on Surveillance [continuous indirect monitoring]: Call morris in reach Purposeful rounding Caregiver at bedside Patient-specific fall prevention interventions for sensory deficits provided, if applicable: [X] N/A CPG GOAL OUTCOME EVALUATION: * Plan of Care - Lori Ordaz RN - 09/17/2017 4:24 AM EDT Problem: Patient Care Overview Goal: Plan of Care Review Outcome: Ongoing (Interventions Implemented as Appropriate) 09/17/17 0418 Coping/Psychosocial Plan Of Care Reviewed With patient Plan of Care Review Progress no change OUTCOME EVALUATION NOTE: OUTCOME SUMMARY: Pt is alert. Pt was yelling out upon initial assessment, appearing agitated and in pain. Pt then began to hit himself uncontrollably, PRN meds provided (see MAR). Pt continued to yell and hit himself. Pt was not redirectable. PRN ativan and oxycodone were provided at that time (see MAR). Pt later closed his eyes and remained quiet throughout the rest of the night. Caregiver remained at the bedside. Call morris within reach. VSS. Will continue to monitor. PLAN MOVING FORWARD: Pain management, improve mobility, d/c planning INDIVIDUALIZED FALL PREVENTION INTERVENTIONS: Patient-specific fall risk factors per assessment: [current deficits]: Hospital environment, narcotics, pain, impaired mobility, blindness Assistance [level of assistance required for transfers and ambulation]: 2 assist w/ FWW Supervision [direct monitoring required during toileting and ADLs]: 2 assist Surveillance [continuous indirect monitoring]: Pt rosa Marcano, hourly rounding Patient-specific fall prevention interventions for sensory deficits provided, if applicable: [X] Yes -bed alarm * Plan of Care - Laura Vasquez RN - 09/16/2017 6:43 PM EDT Problem: Patient Care Overview Goal: Plan of Care Review Outcome: Ongoing (Interventions Implemented as Appropriate) 09/15/17 1808 09/16/17 0838 Coping/Psychosocial Plan Of Care Reviewed With -- patient Plan of Care Review Progress no change -- OUTCOME EVALUATION NOTE: OUTCOME SUMMARY: This patient's skin remains intact at this time with no reddened areas. Pt currently repositioning self in bed every 2 hrs. Pt verbalizes understanding to reposition self every 2 hrs to prevent skin breakdown and alert nurse when help is needed to do so. Will continue to monitor. This patient reports that his pain is adequately managed with the ordered medication regimen. This patient denies chest pain, shortness of breath, and nausea. The patient's dressing to the abdomen and Left hip remains clean, dry, and intact. Last recorded vital signs: Last value Temperature Temp: 36.6 ??C (97.9 ??F) Heart Rate Heart Rate: 88 Blood Pressure BP: 118/76 Respiratory Rate Resp: 20 SpO2 SpO2: 95 % Recorded I/O: PLAN MOVING FORWARD: The plan moving forward with this patient is to work with PT/OT to increase this patients independence with ADLs. INDIVIDUALIZED FALL PREVENTION INTERVENTIONS: Patient-specific fall risk factors per assessment: [current deficits]: This patient has decreased his mobility and sensory impairment in relation to receiving the medication hydromorphone. Assistance [level of assistance required for transfers and ambulation]: This patient requires two assist and a front wheel walker to ambulate. Supervision [direct monitoring required during toileting and ADLs]: This patient requires one assist with ADLs. Surveillance [continuous indirect monitoring]: Jeet, nursing knowledge exchange, purposeful rounding. Patient has history of: No past medical history on file. Past Surgical History: Procedure Laterality Date ??? PRO OPEN CROSSCUTTER ROLLED GLASS FIX ACETABULAR FX Left 09/04/2017 @OPEN TREATMENT, ACETABULAR FX (WRVU 25.41) performed by Amy Lance MD at [facility] MAIN OR Patient has following SCHEDULED medications: ??? methyl salicylate-menthol Topical (Top) BID ??? desmopressin 0.05 mg Oral Q8H ??? calcium carbonate 500 mg Oral BID ??? cholecalciferol (Vitamin D3) 1,000 Units Oral Daily ??? hydrocortisone 20 mg Oral QAM ??? hydrocortisone 10 mg Oral Daily at Noon ??? hydrocortisone 10 mg Oral Q24H ??? enoxaparin 40 mg Subcutaneous Nightly ??? levothyroxine 150 mcg Oral QAM ??? melatonin 3 mg Oral Nightly ??? pantoprazole 40 mg Oral QAM AC ??? QUEtiapine 250 mg Oral Nightly ??? traZODone 50 mg Oral Nightly ??? sodium chloride 0.9 % 5 mL Intravenous BID ??? zonisamide 200 mg Oral Nightly Patient has following PRN medications: HYDROmorphone, haloperidol, LORazepam, polyethylene glycol (MIRALAX)oral powder, senna-docusate, sodium chloride 0.9 %, lidocaine, naphazoline-pheniramine CPG GOAL OUTCOME EVALUATION: Goal: Fall Prevention-Safe Patient Handling Outcome: Ongoing (Interventions Implemented as Appropriate) 09/14/17 0722 09/15/17 0800 09/15/17 2300 Restraint Interventions Safety Promotion/Fall Prevention -- -- -- Activity Activity Type -- -- activity adjusted per tolerance Activity Assistance Provided -- assistance, 2 people -- Assistive Device Utilized front-wheel walker -- -- 09/16/17 1400 Restraint Interventions Safety Promotion/Fall Prevention activity supervised;fall prevention program maintained;nonskid shoes/slippers when out of bed;safety round/check completed Activity Activity Type -- Activity Assistance Provided -- Assistive Device Utilized -- Goal: Infection Control Outcome: Ongoing (Interventions Implemented as Appropriate) 09/16/17 0838 09/16/17 1400 Safety Interventions Isolation Precautions -- standard precautions maintained Infection Prevention -- rest/sleep promoted Coping Strategies Supportive Measures verbalization of feelings encouraged;active listening utilized;relaxation techniques promoted -- Goal: Discharge Needs Assessment Outcome: Ongoing (Interventions Implemented as Appropriate) 09/15/17 1347 Discharge Needs Assessment Concerns To Be Addressed no discharge needs identified Readmission Within The Last 30 Days no previous admission in last 30 days Problem: Fracture Orthopaedic (Adult) Goal: Signs and Symptoms of Listed Potential Problems Will be Absent, Minimized or Managed (Fracture Orthopaedic) Signs and symptoms of listed potential problems will be absent, minimized or managed by discharge/transition of care (reference Fracture Orthopaedic (Adult) CPG). Outcome: Ongoing (Interventions Implemented as Appropriate) 09/15/17 1347 Fracture Orthopaedic Problems Assessed (Orthopaedic Fracture) all Problems Present (Orthopaedic Fracture) pain * Op Note - Amy Lance MD - 09/16/2017 10:24 AM EDT [facility] [place] Operative Note Patient Name: Miguel Angel Mason : [id number] MR#: [id number] Case Date: 09/04/2017 Surgeon: Surgeon(s) and Role: * Amy Lance MD - Primary * Wilder Lua MD - Resident-Surgeon Erickson * Samson Anthony MD - Resident-Surgeon Erickson Preoperative diagnosis: Left Both column acetabulum fracture Postoperative diagnosis: Left Both column acetabulum fracture Procedure(s) (LRB): @OPEN TREATMENT, ACETABULAR FX (WRVU 25.41) (Left) MODIFIER SMALL FRAGMENT SYNTHES (N/A) MODIFIER PELVIC RECONSTRUCTION PLATE SYNTHES (N/A) MODIFIER LARGE FRAGMENT SYSTEM SYNTHES (N/A) Anesthesia: General Estimated Blood Loss: 1500 mL Specimens removed during surgery: None Drains: Surgical Closure: Primary Closure - closure of ALL tissue levels during the original surgery regardless of wires, wickes, drains, or other devices extruding through the incision Disposition: awakened from anesthesia, extubated and taken to the recovery room in a stable condition, having suffered no apparent untoward event. Condition: doing well without problems (Please see the Surgical Encounter Summary for any Implant and Specimen details pertinent to this patient.) HPI/Surgical Indications: This is a 27 y.o. male with developmental delay who sustained a seizure resulting in a both column acetabular fracture. Per his healthcare proxy he ambulates without any assistive device and is otherwise quite independent in his nursing home prior to this injury. Furthermore, she did note that he is able to follow commands. We discussed this injury at substantial length including operative and nonoperative treatment options. They did elect to proceed with open reduction internal fixation. They do understand that risks include but are not limited to pain, bleeding, infection, nonunion, malunion, injury to the nerves or vessels, blood clots, need for further surgery, , persistent hip pain. ?? Procedure Description: The patient was seen in the same day holding area where operative extremity was marked and informedconsent was reviewed. The patient was brought back to the Operating Room and general anesthesia wasadministered. Several large bore IVs and an arterial line were placed. The patient was then transferred to the Operating Room table in the supine position. All bony prominences were well padded. The patient received preoperative Ancef. Prior to draiping the patients' traction pin was sterily prepped, cut and removed. The patient's abdomen, pelvis and left leg were then prepped with chlorhexidine,alcohol, and Chloraprep and draped in the usual sterile manner. Time out for stated surgery was performed. ?? An 8cm Pfansesteil incision was made. Fascia was exposed proximally and distally. Decussating fibers of the linea alba was identified and incised. Dissection was carried down between the heads of therectus in the midline. Malleable retractor was placed into the pelvis protected the bladder. Using a cob and the bovi the rectus on the left side was peeled off the proximal aspect of the left superior pubic ramus. The johnston mortis was identified, small clips were placed. A blunt juliana was placedinto the iliopsoas gutter anteriorly. The iliopectineal fascia was incised around to the back of the pelvis all the way to the SI joint. The fascia was dissected off the quadrilateral plate, exposingthe fracture. A Carolina retractor was placed up onto the iliac wing. A 5.0mm shanz pin was placed into the femoral neck under radiographic guidance. Lateral traction and axial traction was pulled continuously to reduce the femoral head out of the pelvis. Using irrigation and a currette the fracture was cleared of hematoma. Attention was then turned to the lateral window. A 10cm incision was made starting at the ASIS, extending posteriorly around the iliac crest. Dissection was carried down to the insertion of the external oblique and gluteus arlyn on the iliac crest. The lateral femoral cutaneous nerve was identified and protected. The external obliques were dissected subperiosteally off the crest. The iliacus was cleared subperiosteally off the inner table of the iliac wing. A blunt juliana was placed into the true pelvis. The fracture was identified. Bone wax was placed over a bony bleeder. Fracture reduction was obtained with lateral traction and a ball spike pusher and held with k-wires. Reduction was confirmed radigraphically. One lag screw was placed through the quadrilateral plate.A quadrilateral suprapectineal plate was placed. Through the lateral window one screw was placed aiming toward the PSIS. Two posterior column screws were then placed. Three screws were placed anteriorly through the stoppa window. Then one screw was placed into the quadrilateral plate. Reduction, plate placement and screw placement was again confirmed radiographically with AP pelvis and judet views. ? The wounds were then copiously irrigated with saline. 2g of vancomycin powder was placed into each wound. Fascia was closed with 0 vicryl and then 2-0 vicrcyl subcutaneous sutures and skin was closedwith carisa. Silver mepilex was placed. The patient was transferred to a stretcher and was awakened from anesthesia. The patient was then taken to the PACU in good condition. ? As the attending physician, I was present for the entire case Infection Bundle used? N/A Attestation: Case Date: 09/04/2017 I was present and I participated during the entire procedure (does not need to include opening and closing). Amy Lance MD 09/16/2017 * Plan of Care - Skyler Aviles RN - 09/16/2017 3:52 AM EDT Problem: Patient Care Overview Goal: Fall Prevention-Safe Patient Handling 09/13/17 0903 09/14/17 0722 09/15/17 0800 Restraint Interventions Safety Promotion/Fall Prevention -- -- -- Activity Activity Type -- -- -- Activity Assistance Provided -- -- assistance, 2 people Assistive Device Utilized -- front-wheel walker -- Positioning Body Position -- -- supine, head elevated Daily Care Interventions Self-Care Promotion independence encouraged;BADL personal objects within reach;BADL personal routines maintained -- -- [place] Fall Risk History of Falling -- -- -- Secondary Diagnosis -- -- -- Ambulatory Aids -- -- -- Intravenous Therapy/Heparin/Saline Lock -- -- -- Gait/Transferring -- -- -- Mental Status -- -- -- Score -- -- -- OTHER [place] Fall Risk -- -- -- 09/15/17 2300 Restraint Interventions Safety Promotion/Fall Prevention activity supervised Activity Activity Type activity adjusted per tolerance Activity Assistance Provided -- Assistive Device Utilized -- Positioning Body Position -- Daily Care Interventions Self-Care Promotion -- [place] Fall Risk History of Falling 25 Secondary Diagnosis 15 Ambulatory Aids 0 Intravenous Therapy/Heparin/Saline Lock 0 Gait/Transferring 20 Mental Status 15 Score 75 OTHER [place] Fall Risk High OUTCOME EVALUATION NOTE: OUTCOME SUMMARY: Pt agitated and yelling for first part of shift. Did not calm down with bed time meds. Haldol prn med given with effect. Otherwise no change in condition. PLAN MOVING FORWARD: Monitor VS, incontinent care, awaiting placement INDIVIDUALIZED FALL PREVENTION INTERVENTIONS: Patient-specific fall risk factors per assessment: [current deficits]: Impaired mobility and impaired cognition Assistance [level of assistance required for transfers and ambulation]: 1-2 assist with bed mobility Supervision [direct monitoring required during toileting and ADLs]: Eyes on Surveillance [continuous indirect monitoring]: Purposeful rounding Patient-specific fall prevention interventions for sensory deficits provided, if applicable: [X] No CPG GOAL OUTCOME EVALUATION: Goal: Infection Control 09/15/17 08 Safety Interventions Isolation Precautions standard precautions maintained Infection Prevention environmental surveillance performed;personal protective equipment utilized;rest/sleep promoted;single patient room provided Coping Strategies Supportive Measures active listening utilized;positive reinforcement provided;relaxation techniquespromoted;verbalization of feelings encouraged Goal: Discharge Needs Assessment 09/07/17 0504 09/08/17 0403 09/13/17 1417 Discharge Needs Assessment Concerns To Be Addressed -- -- -- Readmission Within The Last 30 Days -- -- -- Equipment Needed After Discharge -- other (see comments) (TBD) -- Current Discharge Risk -- cognitively impaired;physical impairment -- Discharge Disposition -- -- still a patient Current Health Outpatient/Agency/Support Group Needs -- nursing home (specify) -- Anticipated Changes Related to Illness -- none -- Living Environment Transportation Available -- other (see comments) (member from nursing home can provide) -- Activity/Self Care Review of Systems Equipment Currently Used at Home none -- -- 09/15/17 1347 Discharge Needs Assessment Concerns To Be Addressed no discharge needs identified Readmission Within The Last 30 Days no previous admission in last 30 days Equipment Needed After Discharge -- Current Discharge Risk -- Discharge Disposition -- Current Health Outpatient/Agency/Support Group Needs -- Anticipated Changes Related to Illness -- Living Environment Transportation Available -- Activity/Self Care Review of Systems Equipment Currently Used at Home -- * Plan of Care - Lori Ordaz RN - 09/15/2017 6:12 PM EDT Problem: Patient Care Overview Goal: Plan of Care Review Outcome: Ongoing (Interventions Implemented as Appropriate) 09/15/17 180 Coping/Psychosocial Plan Of Care Reviewed With patient Plan of Care Review Progress no change OUTCOME EVALUATION NOTE: OUTCOME SUMMARY: Pt is alert. Pt has since been sleeping well between care today. Caregiver remains at the bedside. In the afternoon pt was incontinent, incontinence care was provided. Thereafter pt began moaning andyelling out. When asked if he was in pain pt responded by yelling yes, PRN meds provided. Pt continued to appear agitated, PRN ativan provided as well (see MAR). Call morris is within reach. VSS. Will continue to monitor. PLAN MOVING FORWARD: Pain management, improve mobility, d/c planning INDIVIDUALIZED FALL PREVENTION INTERVENTIONS: Patient-specific fall risk factors per assessment: [current deficits]: Hospital environment, narcotics, pain, impaired mobility, blindness Assistance [level of assistance required for transfers and ambulation]: 2 assist w/ FWW Supervision [direct monitoring required during toileting and ADLs]: 1 assist Surveillance [continuous indirect monitoring]: Pt refuses to wear masimo, hourly rounding Patient-specific fall prevention interventions for sensory deficits provided, if applicable: [X] Yes -bed alarm * Plan of Care - Skyler Aviles RN - 09/15/2017 6:36 AM EDT Problem: Patient Care Overview Goal: Plan of Care Review 09/14/17 1452 Coping/Psychosocial Plan Of Care Reviewed With patient Plan of Care Review Progress no change OUTCOME EVALUATION NOTE: OUTCOME SUMMARY: Pt incont medium formed BM and moderate amount urine X2. Tmax 38.9, U/A, CXR, BC done. PLAN MOVING FORWARD: Follow VS, mobilize when ready as tolerated INDIVIDUALIZED FALL PREVENTION INTERVENTIONS: Patient-specific fall risk factors per assessment: [current deficits]: Impaired mobility, cognitively impaired Assistance [level of assistance required for transfers and ambulation]: 1-2 moderate assist with bed mobility Supervision [direct monitoring required during toileting and ADLs]: Eyes on Surveillance [continuous indirect monitoring]: Purposeful round Patient-specific fall prevention interventions for sensory deficits provided, if applicable: [X] No CPG GOAL OUTCOME EVALUATION: Goal: Individualization & Mutuality 09/05/17 0607 09/07/17 0504 09/09/17 0323 Individualization Patient Specific Preferences Able to answer yes/no questions -- -- Patient Specific Goals -- -- -- Patient Specific Interventions -- -- diaper for incontinence Mutuality/Individual Preferences What Anxieties, Fears or Concerns Do You Have About Your Health or Care? -- ISHAAN -- What Questions Do You Have About Your Health or Care? -- ISHAAN -- What Information Would Help Us Give You More Personalized Care? -- ISHAAN -- 09/13/17 1418 Individualization Patient Specific Preferences -- Patient Specific Goals manage pain, improve mobility Patient Specific Interventions -- Mutuality/Individual Preferences What Anxieties, Fears or Concerns Do You Have About Your Health or Care? -- What Questions Do You Have About Your Health or Care? -- What Information Would Help Us Give You More Personalized Care? -- Goal: Fall Prevention-Safe Patient Handling 09/13/17 0903 09/14/17 0722 09/14/17 1334 Restraint Interventions Safety Promotion/Fall Prevention -- -- -- Activity Activity Type -- step/march in place;stand at bedside -- Activity Assistance Provided -- assistance, 2 people -- Assistive Device Utilized -- front-wheel walker -- Positioning Body Position -- -- independent Daily Care Interventions Self-Care Promotion independence encouraged;BADL personal objects within reach;BADL personal routines maintained -- -- [place] Fall Risk History of Falling -- -- -- Secondary Diagnosis -- -- -- Ambulatory Aids -- -- -- Intravenous Therapy/Heparin/Saline Lock -- -- -- Gait/Transferring -- -- -- Mental Status -- -- -- Score -- -- -- OTHER [place] Fall Risk -- -- -- 09/14/17 2300 Restraint Interventions Safety Promotion/Fall Prevention activity supervised Activity Activity Type -- Activity Assistance Provided -- Assistive Device Utilized -- Positioning Body Position -- Daily Care Interventions Self-Care Promotion -- [place] Fall Risk History of Falling 25 Secondary Diagnosis 15 Ambulatory Aids 0 Intravenous Therapy/Heparin/Saline Lock 0 Gait/Transferring 20 Mental Status 15 Score 75 OTHER [place] Fall Risk High Goal: Infection Control 09/14/17 0722 Safety Interventions Isolation Precautions standard precautions maintained Infection Prevention rest/sleep promoted;single patient room provided Coping Strategies Supportive Measures active listening utilized;self-care encouraged Goal: Discharge Needs Assessment 09/07/17 0504 09/08/17 0403 09/10/17 0042 Discharge Needs Assessment Concerns To Be Addressed -- -- no discharge needs identified Readmission Within The Last 30 Days -- -- -- Equipment Needed After Discharge -- other (see comments) (TBD) -- Current Discharge Risk -- cognitively impaired;physical impairment -- Discharge Disposition -- -- -- Current Health Outpatient/Agency/Support Group Needs -- nursing home (specify) -- Anticipated Changes Related to Illness -- none -- Living Environment Transportation Available -- other (see comments) (member from nursing home can provide) -- Activity/Self Care Review of Systems Equipment Currently Used at Home none -- -- 09/12/17 1343 09/13/17 1417 Discharge Needs Assessment Concerns To Be Addressed -- -- Readmission Within The Last 30 Days no previous admission in last 30 days -- Equipment Needed After Discharge -- -- Current Discharge Risk -- -- Discharge Disposition -- still a patient Current Health Outpatient/Agency/Support Group Needs -- -- Anticipated Changes Related to Illness -- -- Living Environment Transportation Available -- -- Activity/Self Care Review of Systems Equipment Currently Used at Home -- -- * Plan of Care - Crista Diaz RN - 09/14/2017 2:54 PM EDT Problem: Patient Care Overview Goal: Plan of Care Review Outcome: Ongoing (Interventions Implemented as Appropriate) 09/14/17 3102 Coping/Psychosocial Plan Of Care Reviewed With patient Plan of Care Review Progress no change OUTCOME EVALUATION NOTE: ?? OUTCOME SUMMARY: ?? Pt progressing towards d/c goals appropriately at this time. Pt pulling sheets off bed, refusing toleave them on. Pt incontinent throughout shift. Hollering out at times. VSS. Will continue to monitor. ?? PLAN MOVING FORWARD: ?? Pain control. Mobilization. D/C Planning. ?? INDIVIDUALIZED FALL PREVENTION INTERVENTIONS: ?? Patient-specific fall risk factors per assessment: [current deficits]: Hx of falls. Hospital environment. Generalized weakness. Hx of CVA. NWB LLE ?? Assistance [level of assistance required for transfers and ambulation]: 2 Assist with FWW ?? Supervision [direct monitoring required during toileting and ADLs]: 1 Assist ?? Surveillance [continuous indirect monitoring]: Masimo. Hourly rounding. Bedside nurse knowledge exchange. ?? Patient-specific fall prevention interventions for sensory deficits provided, if applicable: [X] Yes - Bed alarm - Family/rn medicare at bedside * Care Management - Eli Aragon RN - 09/14/2017 11:16 AM EDT Asked by previous CM to follow up on patient. Per review of chart, patient may be medically ready tomorrow. CM reviewed responses from referrals to SNF/Swing as followed: [facility] and [address] [id number] - DECLINED- Patient too complex and do not have any private male rooms. [facility] PHONE: [phone] FAX: [phone]- has received referral but has not responded. [facility] [address] [place] [address] DECLINED- No appropriate bed to offer-concerns with behaviors as well. [facility] (Swing) [address] [place] [address] [place] [facility], likely not a candidate for S/T rehab at [facility]. We have no beds today, but willkeep referral open. Will ask Friday CM/RS to follow up with [facility] and [facility]. If no beds available, CM to follow up with sibling (as noted in chart) to expand search. Covering pager #[phone] for today. * Plan of Care - Ismael Degroot RN - 09/14/2017 7:55 AM EDT Problem: Patient Care Overview Goal: Plan of Care Review Outcome: Ongoing (Interventions Implemented as Appropriate) 09/13/17 1644 Coping/Psychosocial Plan Of Care Reviewed With patient;caregiver Plan of Care Review Progress progress toward functional goals as expected OUTCOME EVALUATION NOTE: OUTCOME SUMMARY: Pt extremely agitated at start of shift, source unknown but presumed to be from pain to L hip. Pt observed clutching hip and screaming worsens with repositioning for incontinence care. Carisa SUIT [employer]KER and intact. Haldol 2 mg po given and one time order for additional Dilaudid 2 mg po obtained with the p otential for increasing his Dilaudid dose to a higher range per MD. Sister at bedside. PLAN MOVING FORWARD: Pain control, dc planning INDIVIDUALIZED FALL PREVENTION INTERVENTIONS: Patient-specific fall risk factors per assessment: [current deficits]: Generalized weakness, L hip ORIF Assistance [level of assistance required for transfers and ambulation]: bedrest Supervision [direct monitoring required during toileting and ADLs]: Total care Surveillance [continuous indirect monitoring]: jose removed for pt safety reasons Patient-specific fall prevention interventions for sensory deficits provided, if applicable: [X] Yes CPG GOAL OUTCOME EVALUATION: Goal: Individualization & Mutuality Outcome: Ongoing (Interventions Implemented as Appropriate) 09/05/1760609/07/1750309/09/17 0323 Individualization Patient Specific Preferences Able to answer yes/no questions -- -- Patient Specific Goals -- -- -- Patient Specific Interventions -- -- diaper for incontinence Mutuality/Individual Preferences What Anxieties, Fears or Concerns Do You Have About Your Health or Care? -- ISHAAN -- What Questions Do You Have About Your Health or Care? -- ISHAAN -- What Information Would Help Us Give You More Personalized Care? -- ISHAAN -- 09/13/17 1418 Individualization Patient Specific Preferences -- Patient Specific Goals manage pain, improve mobility Patient Specific Interventions -- Mutuality/Individual Preferences What Anxieties, Fears or Concerns Do You Have About Your Health or Care? -- What Questions Do You Have About Your Health or Care? -- What Information Would Help Us Give You More Personalized Care? -- Goal: Fall Prevention-Safe Patient Handling Outcome: Ongoing (Interventions Implemented as Appropriate) 09/12/1782709/13/1790209/13/172102 Restraint Interventions Safety Promotion/Fall Prevention -- activity supervised;fall prevention program maintained;safety round/check completed -- Activity Activity Type -- -- bedrest Activity Assistance Provided -- assistance, 2 people -- Assistive Device Utilized front-wheel walker -- -- Positioning Body Position -- -- independent Daily Care Interventions Self-Care Promotion -- independence encouraged;BADL personal objects within reach;BADL personal routines maintained -- [place] Fall Risk History of Falling -- -- 25 Secondary Diagnosis -- -- 15 Ambulatory Aids -- -- 0 Intravenous Therapy/Heparin/Saline Lock -- -- 0 Gait/Transferring -- -- 0 Mental Status -- -- 15 Score -- -- 55 OTHER [place] Fall Risk -- -- High Goal: Infection Control Outcome: Ongoing (Interventions Implemented as Appropriate) 09/13/17902 Safety Interventions Isolation Precautions standard precautions maintained Infection Prevention rest/sleep promoted;single patient room provided;equipment surfaces disinfected Coping Strategies Supportive Measures self-care encouraged Goal: Discharge Needs Assessment Outcome: Ongoing (Interventions Implemented as Appropriate) 09/07/1750309/08/17 0403 09/10/17 0042 Discharge Needs Assessment Concerns To Be Addressed -- -- no discharge needs identified Readmission Within The Last 30 Days -- -- -- Equipment Needed After Discharge -- other (see comments) (TBD) -- Current Discharge Risk -- cognitively impaired;physical impairment -- Discharge Disposition -- -- -- Current Health Outpatient/Agency/Support Group Needs -- nursing home (specify) -- Anticipated Changes Related to Illness -- none -- Living Environment Transportation Available -- other (see comments) (member from nursing home can provide) -- Activity/Self Care Review of Systems Equipment Currently Used at Home none -- -- 09/12/17 1343 09/13/17 1417 Discharge Needs Assessment Concerns To Be Addressed -- -- Readmission Within The Last 30 Days no previous admission in last 30 days -- Equipment Needed After Discharge -- -- Current Discharge Risk -- -- Discharge Disposition -- still a patient Current Health Outpatient/Agency/Support Group Needs -- -- Anticipated Changes Related to Illness -- -- Living Environment Transportation Available -- -- Activity/Self Care Review of Systems Equipment Currently Used at Home -- -- Goal: Interdisciplinary Rounds/Family Conf Outcome: Ongoing (Interventions Implemented as Appropriate) 09/13/17 1415 Interdisciplinary Rounds/Family Conf Participants nursing;patient;family Problem: Skin Integrity Impairment, Risk/Actual (Adult) Goal: Skin Integrity/Wound Healing Patient will demonstrate the desired outcomes by discharge/transition of care. Outcome: Ongoing (Interventions Implemented as Appropriate) 09/13/17 1414 Skin Integrity Impairment, Risk/Actual (Adult) Skin Integrity/Wound Healing making progress toward outcome Problem: Fracture Orthopaedic (Adult) Goal: Signs and Symptoms of Listed Potential Problems Will be Absent, Minimized or Managed (Fracture Orthopaedic) Signs and symptoms of listed potential problems will be absent, minimized or managed by discharge/transition of care (reference Fracture Orthopaedic (Adult) CPG). Outcome: Ongoing (Interventions Implemented as Appropriate) 09/13/17 0903 09/13/17 1413 Fracture Orthopaedic Problems Assessed (Orthopaedic Fracture) all -- Problems Present (Orthopaedic Fracture) -- pain * Plan of Care - Priscilla Lock - 09/13/2017 5:10 PM EST Problem: Patient Care Overview Goal: Plan of Care Review Outcome: Ongoing (Interventions Implemented as Appropriate) 09/13/17 1644 Coping/Psychosocial Plan Of Care Reviewed With patient;caregiver Plan of Care Review Progress progress toward functional goals as expected OUTCOME EVALUATION NOTE: OUTCOME SUMMARY: Pt progressing toward d/c goals appropriately at this time. Pt very restless and moaning throughoutshift, caregiver remained at bedside. Q4 urine osmolality d/c. Pt incontinent of urine x2 this shift. Pain controlled with prescribed medications and Ativan given once this shift. Will continue to monitor. PLAN MOVING FORWARD: Pain control Improve mobility D/c planning INDIVIDUALIZED FALL PREVENTION INTERVENTIONS: Patient-specific fall risk factors per assessment: [current deficits]: Generalized weakness, recentsurgery, pain, pt taking narcotics, baseline cognitive impairment Assistance [level of assistance required for transfers and ambulation]: 2-assist Supervision [direct monitoring required during toileting and ADLs]: Hands on Surveillance [continuous indirect monitoring]: NKE, hourly rounding * Plan of Care - Ren Walters OTA - 09/13/2017 4:17 PM EST Occupational Therapy Treatment Note Pertinent History of Current Problem: (P) Pt is a 27 yo man with a history of resection of pituitary tumor, intraoperative hemorrhage and CVA, cognitive impairment, cortical blindness, partial L sided paralysis, seizure disorder, and panhypopituitarism (with DI, adrenal insufficiency, hypothyroidism, hypogonadism) here with a left acetabular fracture that occurred in the setting of a possible seizure. Precautions/Restrictions: (P) fall, weight bearing Precautions Comments: (P) L side weaker than R at baseline. Blind. NWB LLE Assessment: Pt was seen today for skilled OT. Session focussed on introducing self to [place], following simple commands and transferring safely from recliner to bed while maintaining WB restriction onLLE. Pt was able to communicate simply and caregiver was able to assist with VCs while transferringfrom recliner to bed. Next session will focus on dressing goals. Pt will benefit from ongoing therapeutic interventions to achieve pt's and therapy goals. Please refer to associated flowsheet data for treatment session details. Staff Recommendations: Encourage OOB activity and participation in all self care tasks Anticipated Discharge Disposition: (P) half-way facility Pager: [phone] ZULMA Vargas 09/13/2017 Occupational Therapy Rehabilitation Department * Plan of Care - Ismael Degroot RN - 09/13/2017 8:27 AM EST Problem: Patient Care Overview Goal: Plan of Care Review Outcome: Ongoing (Interventions Implemented as Appropriate) 09/12/17 1623 Coping/Psychosocial Plan Of Care Reviewed With patient Plan of Care Review Progress improving OUTCOME EVALUATION NOTE: OUTCOME SUMMARY: Pt calm and cooperative tonight, caregiver at bedside. Pt cooperative with q4h blood draws and straight caths for urine osmolality and sodium level. Pt slept well. PLAN MOVING FORWARD: Pt safety, dc planning INDIVIDUALIZED FALL PREVENTION INTERVENTIONS: Patient-specific fall risk factors per assessment: [current deficits]: Blind, L hip fx Assistance [level of assistance required for transfers and ambulation]: bedrest Supervision [direct monitoring required during toileting and ADLs]: One assist Surveillance [continuous indirect monitoring]: Jose, hourly rounding. Patient-specific fall prevention interventions for sensory deficits provided, if applicable: [X] Yes CPG GOAL OUTCOME EVALUATION: Goal: Individualization & Mutuality Outcome: Ongoing (Interventions Implemented as Appropriate) 09/05/17 0607 09/07/17 0504 09/09/17 0323 Individualization Patient Specific Preferences Able to answer yes/no questions -- -- Patient Specific Goals -- -- -- Patient Specific Interventions -- -- diaper for incontinence Mutuality/Individual Preferences What Anxieties, Fears or Concerns Do You Have About Your Health or Care? -- ISHAAN -- What Questions Do You Have About Your Health or Care? -- ISHAAN -- What Information Would Help Us Give You More Personalized Care? -- ISHAAN -- 09/10/17 0042 Individualization Patient Specific Preferences -- Patient Specific Goals pain management, improve mobility Patient Specific Interventions -- Mutuality/Individual Preferences What Anxieties, Fears or Concerns Do You Have About Your Health or Care? -- What Questions Do You Have About Your Health or Care? -- What Information Would Help Us Give You More Personalized Care? -- Goal: Fall Prevention-Safe Patient Handling Outcome: Ongoing (Interventions Implemented as Appropriate) 09/11/17 0809/12/1782709/12/172025 Restraint Interventions Safety Promotion/Fall Prevention -- activity supervised;elopement precautions initiated;fall prevention program maintained;nonskid shoes/slippers when out of bed;safety round/check completed -- Activity Activity Type -- -- activity adjusted per tolerance Activity Assistance Provided -- -- assistance, 2 people Assistive Device Utilized -- front-wheel walker -- Positioning Body Position -- -- side-lying, right Daily Care Interventions Self-Care Promotion independence encouraged -- -- [place] Fall Risk History of Falling -- -- 25 Secondary Diagnosis -- -- 15 Ambulatory Aids -- -- 15 Intravenous Therapy/Heparin/Saline Lock -- -- 0 Gait/Transferring -- -- 20 Mental Status -- -- 15 Score -- -- 90 OTHER [place] Fall Risk -- -- High Goal: Infection Control Outcome: Ongoing (Interventions Implemented as Appropriate) 09/12/17827 Safety Interventions Isolation Precautions standard precautions maintained Infection Prevention rest/sleep promoted;single patient room provided Coping Strategies Supportive Measures self-care encouraged;active listening utilized Goal: Discharge Needs Assessment Outcome: Ongoing (Interventions Implemented as Appropriate) 09/07/17 0504 09/08/17 0403 09/10/17 0042 Discharge Needs Assessment Concerns To Be Addressed -- -- no discharge needs identified Readmission Within The Last 30 Days -- -- -- Equipment Needed After Discharge -- other (see comments) (TBD) -- Current Discharge Risk -- cognitively impaired;physical impairment -- Discharge Disposition -- still a patient -- Current Health Outpatient/Agency/Support Group Needs -- nursing home (specify) -- Anticipated Changes Related to Illness -- none -- Living Environment Transportation Available -- other (see comments) (member from nursing home can provide) -- Activity/Self Care Review of Systems Equipment Currently Used at Home none -- -- 09/12/17 1343 Discharge Needs Assessment Concerns To Be Addressed -- Readmission Within The Last 30 Days no previous admission in last 30 days Equipment Needed After Discharge -- Current Discharge Risk -- Discharge Disposition -- Current Health Outpatient/Agency/Support Group Needs -- Anticipated Changes Related to Illness -- Living Environment Transportation Available -- Activity/Self Care Review of Systems Equipment Currently Used at Home -- Goal: Interdisciplinary Rounds/Family Conf Outcome: Ongoing (Interventions Implemented as Appropriate) 09/06/17 0350 Interdisciplinary Rounds/Family Conf Participants patient;nursing Problem: Skin Integrity Impairment, Risk/Actual (Adult) Goal: Skin Integrity/Wound Healing Patient will demonstrate the desired outcomes by discharge/transition of care. Outcome: Ongoing (Interventions Implemented as Appropriate) 09/12/17 1342 Skin Integrity Impairment, Risk/Actual (Adult) Skin Integrity/Wound Healing making progress toward outcome Problem: Fracture Orthopaedic (Adult) Goal: Signs and Symptoms of Listed Potential Problems Will be Absent, Minimized or Managed (Fracture Orthopaedic) Signs and symptoms of listed potential problems will be absent, minimized or managed by discharge/transition of care (reference Fracture Orthopaedic (Adult) CPG). Outcome: Ongoing (Interventions Implemented as Appropriate) 09/12/17 1342 Fracture Orthopaedic Problems Assessed (Orthopaedic Fracture) all Problems Present (Orthopaedic Fracture) pain * Plan of Care - Crista Diaz RN - 09/12/2017 4:29 PM EST Problem: Patient Care Overview Goal: Plan of Care Review Outcome: Ongoing (Interventions Implemented as Appropriate) 09/12/17 1623 Coping/Psychosocial Plan Of Care Reviewed With patient Plan of Care Review Progress improving OUTCOME EVALUATION NOTE: OUTCOME SUMMARY: Pt progressing towards d/c goals appropriately at this time. Pt worked with PT and OT today, spent some time up in the chair. Q4 hour urine osmolality and serum sodium labs ordered, Pt straight cath'd to obtain urine for samples. Pt tolerated cath's and PT/OT well today, hollering out has subsided compared to morning hours. VSS. Will continue to monitor. PLAN MOVING FORWARD: Pain control. Q4 serum and urine osmolalities. Mobilization. D/C Planning. INDIVIDUALIZED FALL PREVENTION INTERVENTIONS: Patient-specific fall risk factors per assessment: [current deficits]: Hx of falls. Hospital environment. Generalized weakness. Hx of CVA. NWB LLE Assistance [level of assistance required for transfers and ambulation]: 2 Assist with FWW Supervision [direct monitoring required during toileting and ADLs]: 1 Assist Surveillance [continuous indirect monitoring]: Jeet. Hourly rounding. Bedside nurse knowledge exchange. Patient-specific fall prevention interventions for sensory deficits provided, if applicable: [X] Yes - Bed alarm - Family/rn medicare at bedside * Plan of Care - Etelvina Szymanski, PT - 09/12/2017 1:08 PM EST Physical Therapy Treatment Treatment Number PT: 3 Pertinent History of Current Problem: Pt is a 27 yo man with a history of resection of pituitary tumor, intraoperative hemorrhage and CVA, cognitive impairment, cortical blindness, partial L sided paralysis, seizure disorder, and panhypopituitarism (with DI, adrenal insufficiency, hypothyroidism, hy pogonadism) here with a left acetabular fracture that occurred in the setting of a possible seizure. Precautions/Restrictions: fall, weight bearing Precautions Comments: (NWB LLE) Weight-Bearing Status Extremity Weight Bearing Status: left lower extremity Left Lower Extremity (Weight Bearing Status): nonweight bearing Assessment: Pt seen for functional mobility. Pt demonstrated ability to transfer bed -> chair with min - mod assist x 2 with FWW. Please see the flow sheet below for patient details and mobility. Pt would benefit from ongoing physical therapy interventions. 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 Precautions/Restrictions fall;weight bearing Precautions Comments (NWB LLE) Limitations/Impairments safety/cognitive Treatment Number PT 3 Left Lower Extremity (Weight Bearing Status) nonweight bearing Cognitive Assessment Interventions Behavior/Mood Observations (Cognitive) confused;cooperative;impulsive Attention (Cognitive) moderate impairment;needs redirection;needs cues to redirect Follows Commands/Answers Questions (Cognitive) 50% of the time;able to follow single-step instructions;needs cueing;needs increased time;needs repetition;unable to answer questions Personal Safety (Cognitive) severe impairment;at risk behaviors demonstrated;decreased awareness, need for assist;decreased awareness, need for safety;decreased insight to deficits;one-on-one supervision required for safety Pain Scale/Rating Pain Assessment Scale FLACC (Revised Face Legs Arms Cry Consolability Scale) Pain Level 5 Pain Assessment/rFLACC rFLACC Pain Rating: Activity - Face 1-->occasional grimace or frown, withdrawn, disinterested, appears sad or worried rFLACC Pain Rating: Activity - Legs 1-->uneasy, restless, tense, occasional tremors rFLACC Pain Rating: Activity 1-->squirming, shifting back and forth, tense, mildly agitated (e.g., head back and forth, aggression): shallow, splinting respirations, intermittent signs rFLACC Pain Rating: Activity - Cry 1-->moans or whimpers: occasional complaint, occasional verbal outburst or grunt rFLACC Pain Rating: Activity - Consolability 1-->reassured by occasional touching, hugging, or being talked to, distractible rFLACC Score: Activity 5 Weight-Bearing Status Extremity Weight Bearing Status left lower extremity Bed Mobility Assessment/Treatment Assistive Device (Bed Mobility) (HOB up) Pmifxp-uq-[id number] [place] (Bed Mobility) verbal cues required;minimum assist (75% patient effort);2 person assist required Transfer Assessment/Treatment Bed-Chair [place] (Transfers) verbal cues required;minimum assist (75% patient effort);moderate assist (50% patient effort);2 person assist required Zqd-Lrzzu-Dvh Assistive Device (Transfers) rolling walker Maintain Weight Bearing Status (Transfers) assist to maintain weight bearing status Safety Issues (Transfers) balance decreased during turns;sequencing ability decreased;weight-shifting ability decreased Impairments (Transfers) balance impaired;coordination impaired Comment (Transfers) (pt holding walker but pushing it too far away from himself) Motor Skills/Interventions Additional Documentation Therapeutic Exercise (Group) Therapeutic Exercise Lower Extremity (Therapeutic Exercise) LAQ (long arc quad), right;marching while seated Comment (Therapeutic Exercise) provided with 5 lb sand bag weight for UE exercises Coping Observed Emotional State apprehensive;cooperative Plan of Care Review Plan Of Care Reviewed With patient;other (see comments) (BIOLOGICAL SCIENCE 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 from nursing home) Progress progress towards functional goals is fair Bed Mobility Goal Bed Mobility Goal, Activity Type all bed mobility activities Bed Mobility Goal, [place] Level moderate assist (50% patient effort) Bed Mobility Goal, Date Goal Reviewed 09/12/17 Bed Mobility Goal, Outcome Achieved goal ongoing Gait Training Goal Gait Training Goal, [place] Level minimum assist (75% patient effort) Gait Training Goal, Assist Device walker, rolling Gait Training Goal, Distance to Achieve 15 Gait Training Goal, Date Goal Reviewed 09/12/17 Gait Training Goal, Outcome goal ongoing Transfer Training Goal Transfer Training Goal, Time to Achieve by discharge Transfer Training Goal, Activity Type vko-mh-avveg/mqdzn-dr-szi Transfer Train Goal, [place] Level minimum assist (75% patient effort) Transfer Training Goal, Assist Device walker, rolling Transfer Train Goal, Date Goal Reviewed 09/12/17 Transfer Training Goal, Outcome goal ongoing Clinical Impression Rehab Potential fair, will monitor progress closely Therapy Frequency 2-4 times/wk Anticipated Equipment Needs at Discharge two wheeled walker Anticipated Discharge Disposition half-way facility;other (see comments) (could got to handicap accesible nursing home with assistance) Staff Mobility Recommendations Stand pivot bed <-> chair toward right LE with FWW and min - mod assist x 2 - needs min assist to maintain NWB LLE with sit -> stand ETELVINA SZYMANSKI, PT Pager: [phone] Inpatient Physical Therapy * Consult Note - Isabel Garcia RN - 09/12/2017 11:40 AM EST Certified Wound Care Nurse Rounding Note During rounding on unit, nurse expressed pt is able to be turned Q2 hours with out issue. 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 Place a pillow above and below sacral area to off load pressure to the sacrum Offload pressure from heels by placing pillows lengthwise beneath legs while in bed. Offload pressure from heels by adjusting length of foot of bed. Friction and Shear: Reposition avoiding shear forces, utilizing maxislide, trendelenberg and max inflate (boost) feature on beds to assist with repositioning. Position hips at triangle icon on bed. Use skin prep on heels and elbows bid. Keep HOB less than or equal to 30 degrees. Use Nourishing Skin Cream after baths for extra dry skin ?Discussed with RN: Crista * Plan of Care - Etelvina Szymanski, PT - 09/11/2017 3:21 PM EST Physical Therapy Treatment Treatment Number PT: (P) 2 Pertinent History of Current Problem: (P) Pt is a 27 yo man with a history of resection of pituitary tumor, intraoperative hemorrhage and CVA, cognitive impairment, cortical blindness, partial L sided paralysis, seizure disorder, and panhypopituitarism (with DI, adrenal insufficiency, hypothyroidism, hypogonadism) here with a left acetabular fracture that occurred in the setting of a possible seizure. Precautions/Restrictions: (P) fall, weight bearing Precautions Comments: (P) NWB LLE Weight-Bearing Status Extremity Weight Bearing Status: (P) left lower extremity Left Lower Extremity (Weight Bearing Status): (P) nonweight bearing Assessment: Pt seen for functional mobility training. Pt demonstrated anxiety regarding mobilizing but was able to stand pivot transfer with assist x 2. Please see the flow sheet below for patient details and mobility. Pt would benefit from ongoing physical therapy interventions. 09/11/17 1340 Rehab Evaluation Document Type therapy note (daily note) Total Evaluation Minutes, Physical Therapy 40 (functional mobility training) Patient Effort adequate Symptoms Noted During/After Treatment increased pain General Information Patient Profile Review yes Patient/Family/Caregiver Comments/Observations yelling on and off throughout treatment General Observations of Patient pt sitting up in bed, having lunch with BIOLOGICAL SCIENCE TECHNICIAN from nursing home Pertinent History of Current Problem Pt is a 27 yo man with a history of resection of pituitary tumor, intraoperative hemorrhage and CVA, cognitive impairment, cortical blindness, partial L sided paralysis, seizure disorder, and panhypopituitarism (with DI, adrenal insufficiency, hypothyroidism, hyp ogonadism) here with a left acetabular fracture that occurred in the setting of a possible seizure. Precautions/Restrictions fall;weight bearing Precautions Comments NWB LLE Limitations/Impairments safety/cognitive;visual Treatment Number PT 2 Left Lower Extremity (Weight Bearing Status) nonweight bearing Vital Signs O2 Device RA Vision Assessment/Intervention Visual Impairment/Limitations legally blind Cognitive Assessment Interventions Behavior/Mood Observations (Cognitive) agitated;cooperative;impaired task initiation;restless Orientation Status (Cognitive) unable/difficult to assess Attention (Cognitive) moderate impairment;needs redirection;difficulty attending to task/directions;needs cues to redirect Follows Commands/Answers Questions (Cognitive) 50% of the time;able to follow single-step instructions;needs cueing;needs increased time;needs repetition;speech unintelligible Personal Safety (Cognitive) severe impairment;at risk behaviors demonstrated;decreased awareness, need for assist;decreased awareness, need for safety;decreased insight to deficits;impulsive;one-on-one supervision required for safety Pain Scale/Rating Pain Assessment Scale Faces (Roberson-Carter FACES Pain Rating Scale) Pain Level 6 POSS ([place] Opioid-Induced Sed Scale) 1 - Awake and alert Pain Assessment Numbers/Faces/Word Pain Body Location - Side Left Factors That Aggravate Pain activity;movement Pain Management Interventions premedicated for activity Pain Assessment Behavior Scale - NON ICU - Non Verbal Face 1 Restlessness 2 Muscle Tone 1 Vocalization 2 Consolability 1 Total 7 ROM (Range of Motion) General Range of Motion Detail (difficulty extending left hip) Weight-Bearing Status Extremity Weight Bearing Status left lower extremity Bed Mobility Assessment/Treatment Assistive Device (Bed Mobility) (HOB up) Roll Left [place] (Bed Mobility) minimum assist (75% patient effort);2 person assist required Roll Right [place] (Bed Mobility) verbal cues required;nonverbal cues required (demo/gesture);minimum assist (75% patient effort);2 person assist required Scoot/Bridge [place] (Bed Mobility) minimum assist (75% patient effort);2 person assist required Hvdpti-sz-Vth [place] (Bed Mobility) verbal cues required;nonverbal cues required (demo/gesture);minimum assist (75% patient effort);2 person assist required Safety Issues (Bed Mobility) decreased use of legs for bridging/pushing Impairments (Bed Mobility) pain;ROM (range of motion) decreased Transfer Assessment/Treatment Bed-Chair [place] (Transfers) nonverbal cues required (demo/gesture);minimum assist (75% patient effort);moderate assist (50% patient effort);2 person assist required Gzf-Bnats-Vbe Assistive Device (Transfers) rolling walker [place] (Sit-Stand Transfers) minimum assist (75% patient effort);2 person assist required Maintain Weight Bearing Status (Transfers) assist to maintain weight bearing status Safety Issues (Transfers) weight-shifting ability decreased Impairments (Transfers) balance impaired;coordination impaired;pain;weight bearing status, unable to maintain Coping Observed Emotional State afraid/fearful;agitated Plan of Care Review Plan Of Care Reviewed With patient;other (see comments) (BIOLOGICAL SCIENCE TECHNICIAN) Progress progress towards functional goals is fair Bed Mobility Goal Bed Mobility Goal, Time to Achieve by discharge Bed Mobility Goal, Activity Type all bed mobility activities Bed Mobility Goal, [place] Level moderate assist (50% patient effort) Bed Mobility Goal, Date Goal Reviewed 09/11/17 Bed Mobility Goal, Outcome Achieved goal ongoing Gait Training Goal Gait Training Goal, Time to Achieve by discharge Gait Training Goal, [place] Level minimum assist (75% patient effort) Gait Training Goal, Assist Device walker, rolling Gait Training Goal, Distance to Achieve 15 Gait Training Goal, Outcome goal ongoing Transfer Training Goal Transfer Training Goal, Time to Achieve by discharge Transfer Training Goal, Activity Type zoz-kn-vxcre/eduxi-gj-gjg Transfer Train Goal, [place] Level minimum assist (75% patient effort) Transfer Training Goal, Assist Device walker, rolling Transfer Train Goal, Date Goal Reviewed 09/11/17 Transfer Training Goal, Outcome goal ongoing Physical Therapy Goal PT Goal, Time to Achieve by discharge PT Goal, Activity Type Pt is a 27 yo man with a history of resection of pituitary tumor, intraoperative hemorrhage and CVA, cognitive impairment, cortical blindness, partial L sided paralysis, seizure disorder, and panhypopituitarism (with DI, adrenal insufficiency, hypothyroidism, hypogonadism) here with a left acetabular fracture that occurred in the setting of a possible seizure. PT Goal, [place] Level set up required;supervision required Clinical Impression Therapy Frequency 2-4 times/wk Anticipated Equipment Needs at Discharge front wheeled walker Anticipated Discharge Disposition half-way facility Staff Mobility Recommendations Assist x 2 for stand pivot transfer with FWW toward right - needs assist for NWBing with sit -> stand; does best when asked to count to 3 ETELVINA SZYMANSKI, PT Pager: [phone] Inpatient Physical Therapy * Plan of Care - Loren Trivedi RN - 09/11/2017 3:19 PM EST Problem: Patient Care Overview Goal: Plan of Care Review Outcome: Ongoing (Interventions Implemented as Appropriate) 09/10/17 03009/11/17 08 Coping/Psychosocial Plan Of Care Reviewed With -- patient Plan of Care Review Progress progress toward functional goals as expected -- OUTCOME EVALUATION NOTE: OUTCOME SUMMARY: Pt resting in bed and chair throughout shift. Caregiver to bedside throughout the day. Pain managedwith scheduled and prn meds. Pt worked with PT and was able to pivot to the chair. Pt continues to cry and scream out. Morse remains in place putting out large amounts of urine. Placed on fluid restriction of 4L. Sodium levels checked frequently. VSS, will continue to monitor. PLAN MOVING FORWARD: Monitor I/Os Pain control Safe ambulation INDIVIDUALIZED FALL PREVENTION INTERVENTIONS: Patient-specific fall risk factors per assessment: [current deficits]: Confusing, generalized weakness, pain Assistance [level of assistance required for transfers and ambulation]: 2x with walker Supervision [direct monitoring required during toileting and ADLs]: Hourly rounding, room near nurses station Surveillance [continuous indirect monitoring]: Jeet Patient-specific fall prevention interventions for sensory deficits provided, if applicable: [X] N/A CPG GOAL OUTCOME EVALUATION: Goal: Fall Prevention-Safe Patient Handling Outcome: Ongoing (Interventions Implemented as Appropriate) 09/09/17201409/11/17 0800 Restraint Interventions Safety Promotion/Fall Prevention -- activity supervised;fall prevention program maintained;safety round/check completed Activity Activity Type -- activity adjusted per tolerance Activity Assistance Provided -- assistance, 2 people Assistive Device Utilized front-wheel walker -- Positioning Body Position -- supine, head elevated Daily Care Interventions Self-Care Promotion -- independence encouraged [place] Fall Risk History of Falling -- 25 Secondary Diagnosis -- 15 Ambulatory Aids -- 0 Intravenous Therapy/Heparin/Saline Lock -- 0 Gait/Transferring -- 20 Mental Status -- 15 Score -- 75 OTHER [place] Fall Risk -- High Goal: Infection Control Outcome: Ongoing (Interventions Implemented as Appropriate) 09/10/17 0753 09/11/17 0800 Safety Interventions Isolation Precautions -- standard precautions maintained Infection Prevention -- rest/sleep promoted;single patient room provided Coping Strategies Supportive Measures positive reinforcement provided -- Goal: Discharge Needs Assessment Outcome: Ongoing (Interventions Implemented as Appropriate) 09/07/17 0504 09/08/17 0403 09/10/17 0042 Discharge Needs Assessment Concerns To Be Addressed -- -- no discharge needs identified Readmission Within The Last 30 Days -- -- no previous admission in last 30 days Equipment Needed After Discharge -- other (see comments) (TBD) -- Current Discharge Risk -- cognitively impaired;physical impairment -- Discharge Disposition -- still a patient -- Current Health Outpatient/Agency/Support Group Needs -- nursing home (specify) -- Anticipated Changes Related to Illness -- none -- Living Environment Transportation Available -- other (see comments) (member from nursing home can provide) -- Activity/Self Care Review of Systems Equipment Currently Used at Home none -- -- Goal: Interdisciplinary Rounds/Family Conf Outcome: Ongoing (Interventions Implemented as Appropriate) 09/06/17 0350 Interdisciplinary Rounds/Family Conf Participants patient;nursing Problem: Skin Integrity Impairment, Risk/Actual (Adult) Goal: Identify Related Risk Factors and Signs and Symptoms Related risk factors and signs and symptoms are identified upon initiation of Human Response Clinical Practice Guideline (CPG) Outcome: Ongoing (Interventions Implemented as Appropriate) 09/10/17 0042 Skin Integrity Impairment, Risk/Actual Skin Integrity Impairment, Risk/Actual: Related Risk Factors cognitive impairment;traumatic injury Goal: Skin Integrity/Wound Healing Patient will demonstrate the desired outcomes by discharge/transition of care. Outcome: Ongoing (Interventions Implemented as Appropriate) 09/10/17 0042 Skin Integrity Impairment, Risk/Actual (Adult) Skin Integrity/Wound Healing making progress toward outcome Problem: Fracture Orthopaedic (Adult) Goal: Signs and Symptoms of Listed Potential Problems Will be Absent, Minimized or Managed (Fracture Orthopaedic) Signs and symptoms of listed potential problems will be absent, minimized or managed by discharge/transition of care (reference Fracture Orthopaedic (Adult) CPG). Outcome: Ongoing (Interventions Implemented as Appropriate) 09/10/17 0753 Fracture Orthopaedic Problems Assessed (Orthopaedic Fracture) all Problems Present (Orthopaedic Fracture) pain * Plan of Care - Samantha Damon RN - 09/10/2017 2:23 PM EST Problem: Patient Care Overview Goal: Plan of Care Review Outcome: Ongoing (Interventions Implemented as Appropriate) 09/10/17 0309 09/10/17 0753 Coping/Psychosocial Plan Of Care Reviewed With -- patient Plan of Care Review Progress progress toward functional goals as expected -- OUTCOME EVALUATION NOTE: OUTCOME SUMMARY: Patient progressing towards d/c goals appropriately at this time. Pt had a rough night per report. Pt had minimal yelling out episodes during day shift. Caregiver at bedside for shift, attentive to patient. Pain being controlled with 2mg of dilaudid. WIll continue to monitor and help patient reach d/c goals. PLAN MOVING FORWARD: Pain Control D/c planning INDIVIDUALIZED FALL PREVENTION: Patient is currently a high risk to Fall. Patient specific risk factors include secondary diagnosis, cognitive impairment. Patient educated on bed/chair alarm, demonstrates proper use of call morris and verbalizes understanding of fall preventions implemented. Assistance: Patient mobilizing with PT per report. Patient requires total assistance with ADLS. Supervision: Patient requires no bathroom supervision at this time. Surveillance: Patient monitored with bed/chair alarm, purposeful rounding, bedside Nurse Knowledge Exchange. CPG OUTCOME EVALUATION: Goal: Individualization & Mutuality Outcome: Ongoing (Interventions Implemented as Appropriate) 09/05/17 0607 09/07/17 0504 09/09/17 0323 Individualization Patient Specific Preferences Able to answer yes/no questions -- -- Patient Specific Goals -- -- -- Patient Specific Interventions -- -- diaper for incontinence Mutuality/Individual Preferences What Anxieties, Fears or Concerns Do You Have About Your Health or Care? -- ISHAAN -- What Questions Do You Have About Your Health or Care? -- ISHAAN -- What Information Would Help Us Give You More Personalized Care? -- ISHAAN -- 09/10/17 0042 Individualization Patient Specific Preferences -- Patient Specific Goals pain management, improve mobility Patient Specific Interventions -- Mutuality/Individual Preferences What Anxieties, Fears or Concerns Do You Have About Your Health or Care? -- What Questions Do You Have About Your Health or Care? -- What Information Would Help Us Give You More Personalized Care? -- Goal: Fall Prevention-Safe Patient Handling Outcome: Ongoing (Interventions Implemented as Appropriate) 09/08/17 1937 09/09/17201409/10/17 0753 Restraint Interventions Safety Promotion/Fall Prevention -- -- -- Activity Activity Type -- -- activity adjusted per tolerance Activity Assistance Provided -- assistance, 2 people -- Assistive Device Utilized -- front-wheel walker -- Positioning Body Position -- -- supine, head elevated Daily Care Interventions Self-Care Promotion independence encouraged;BADL personal objects within reach -- -- [place] Fall Risk History of Falling -- -- 25 Secondary Diagnosis -- -- 15 Ambulatory Aids -- -- 15 Intravenous Therapy/Heparin/Saline Lock -- -- 0 Gait/Transferring -- -- 20 Mental Status -- -- 15 Score -- -- 90 OTHER [place] Fall Risk -- -- High 09/10/17 1200 Restraint Interventions Safety Promotion/Fall Prevention safety round/check completed Activity Activity Type -- Activity Assistance Provided -- Assistive Device Utilized -- Positioning Body Position -- Daily Care Interventions Self-Care Promotion -- [place] Fall Risk History of Falling -- Secondary Diagnosis -- Ambulatory Aids -- Intravenous Therapy/Heparin/Saline Lock -- Gait/Transferring -- Mental Status -- Score -- OTHER [place] Fall Risk -- Goal: Infection Control Outcome: Ongoing (Interventions Implemented as Appropriate) 09/09/17201409/10/17 0753 Safety Interventions Isolation Precautions -- standard precautions maintained Infection Prevention environmental surveillance performed;personal protective equipment utilized;rest/sleep promoted;single patient room provided -- Coping Strategies Supportive Measures -- positive reinforcement provided Goal: Discharge Needs Assessment Outcome: Ongoing (Interventions Implemented as Appropriate) 09/07/17 0504 09/08/17 0403 09/10/17 0042 Discharge Needs Assessment Concerns To Be Addressed -- -- no discharge needs identified Readmission Within The Last 30 Days -- -- no previous admission in last 30 days Equipment Needed After Discharge -- other (see comments) (TBD) -- Current Discharge Risk -- cognitively impaired;physical impairment -- Discharge Disposition -- still a patient -- Current Health Outpatient/Agency/Support Group Needs -- nursing home (specify) -- Anticipated Changes Related to Illness -- none -- Living Environment Transportation Available -- other (see comments) (member from nursing home can provide) -- Activity/Self Care Review of Systems Equipment Currently Used at Home none -- -- Goal: Interdisciplinary Rounds/Family Conf Outcome: Ongoing (Interventions Implemented as Appropriate) 09/06/17 0350 Interdisciplinary Rounds/Family Conf Participants patient;nursing Problem: Skin Integrity Impairment, Risk/Actual (Adult) Goal: Identify Related Risk Factors and Signs and Symptoms Related risk factors and signs and symptoms are identified upon initiation of Human Response Clinical Practice Guideline (CPG) Outcome: Ongoing (Interventions Implemented as Appropriate) 09/10/17 0042 Skin Integrity Impairment, Risk/Actual Skin Integrity Impairment, Risk/Actual: Related Risk Factors cognitive impairment;traumatic injury Goal: Skin Integrity/Wound Healing Patient will demonstrate the desired outcomes by discharge/transition of care. Outcome: Ongoing (Interventions Implemented as Appropriate) 09/10/17 0042 Skin Integrity Impairment, Risk/Actual (Adult) Skin Integrity/Wound Healing making progress toward outcome Problem: Fracture Orthopaedic (Adult) Goal: Signs and Symptoms of Listed Potential Problems Will be Absent, Minimized or Managed (Fracture Orthopaedic) Signs and symptoms of listed potential problems will be absent, minimized or managed by discharge/transition of care (reference Fracture Orthopaedic (Adult) CPG). Outcome: Ongoing (Interventions Implemented as Appropriate) 09/10/17 0753 Fracture Orthopaedic Problems Assessed (Orthopaedic Fracture) all Problems Present (Orthopaedic Fracture) pain * Plan of Care - Lori Ordaz RN - 09/10/2017 3:21 AM EST Problem: Patient Care Overview Goal: Plan of Care Review Outcome: Ongoing (Interventions Implemented as Appropriate) 09/10/17 0309 Coping/Psychosocial Plan Of Care Reviewed With patient Plan of Care Review Progress progress toward functional goals as expected OUTCOME EVALUATION NOTE: OUTCOME SUMMARY: Pt is alert, continuously yelled out for the first half of the shift. Pt pulled out IV and morse. No new IV access at this time and morse replaced per MEAT LOINER orders. Pt also removed transverse abdominal dressing, RN replaced with gauze and tegaderm. PRN pain meds provided ATC, see MAR. Pt did not appear to get any relief. MEAT LOINER notified, one time dose of lorazepam ordered and given. Pt has since been sleeping well between care. Caregiver remains at the bedside. Call morris is within reach. VSS. Willcontinue to monitor. PLAN MOVING FORWARD: Pain management, improve mobility, d/c planning INDIVIDUALIZED FALL PREVENTION INTERVENTIONS: Patient-specific fall risk factors per assessment: [current deficits]: Hospital environment, narcotics, pain, impaired mobility, blind Assistance [level of assistance required for transfers and ambulation]: 2 assist to turn/reposition Supervision [direct monitoring required during toileting and ADLs]: Hands-on Surveillance [continuous indirect monitoring]: Pt refusing to wear Masimo overnight, hourly rounding Patient-specific fall prevention interventions for sensory deficits provided, if applicable: [X] Yes -bed alarm * Plan of Care - Murtaza Bruce PT - 09/09/2017 3:20 PM EST Physical Therapy Evaluation Pertinent History of Current Problem: 27 yo man with a history of resection of pituitary tumor, intraoperative hemorrhage and CVA, cognitive impairment, cortical blindness, partial L sided paralysis,seizure disorder, and panhypopituitarism (with DI, adrenal insufficiency, hypothyroidism, hypogonadi sm) here with a left acetabular fracture that occurred in the setting of a possible seizure Precautions/Restrictions: fall, weight bearing Precautions Comments: NWB LLE Weight-Bearing Status Extremity Weight Bearing Status: left lower extremity Left Lower Extremity (Weight Bearing Status): nonweight bearing Assessment: Pt seen today for initial PT evaluation. Pt presents with the following impairments increased pain, decreased cognitive status, impaired LE strength/ROM resulting in the following functional limitations: impaired balance, gait, functional mobility, aerobic capacity/endurance. Pt's caregiver present during session. Pt able to sit on EOB initiating movements as well as perform a sit<>stand from elevated bed height w/ assist of 2 therapists and FWW. Pt able to follow verbal commands during today's session and was re- directable towards task. Currently patient would be appropriate for a rehab stay due to many impairments and inability to be independent enough to return to [facility]. Pt would benefit from ongoing physical therapy interventions. Staff Mobility Recommendations Would recommend bedrest until further PT/OT sessions Murtaza Bruce PT Pager: [phone] Inpatient Physical Therapy 2017 PT Evaluation Code Rationale: ?? Diagnosis & Pertinent Co-Morbidities, personal factors, and present illness affecting Plan of Care: Patient Active Problem List Diagnosis Code ??? S/P ORIF left acetabulum fracture 09/04/2017 Dr. Lance S32.409A ??? 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 Adrenal insufficiency E27.40 ??? 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 Seizure disorder G40.909 ??? Insomnia G47.00 ??? Blind H54.7 ??? CVA (cerebral vascular accident) I63.9 ??? Urinary incontinence R32 ??? Hypothyroidism E03.9 ??? Postoperative anemia due to acute blood loss D62 Additional personal factors or co-morbidities that impact plan: ?? Total # of Factors: 0 1-2 3+ x ?? Examination of body system impairments, functional limitations and behaviors, and/or participation restrictions. Addressing 1-2 elements Addressing 3 + elements Addressing 4 + elements x ?? Clinical presentation: See assessment above. Stable/Uncomplicated Evolving/Fluctuating Symptoms Unstable/Unpredictable x ?? Clinical decision making of high complexity based on pt's functional performance as outlined in this evaluation. 09/09/17 1415 Rehab Evaluation Document Type evaluation Total Evaluation Minutes, Physical Therapy 45 (eval only ) Patient Effort adequate Symptoms Noted During/After Treatment increased pain General Information Patient Profile Review yes Patient/Family/Caregiver Comments/Observations awesome in response to if he liked sitting up General Observations of Patient Pt moving all limbs volitionally in bed; crying out (baseline); caregiver present Pertinent History of Current Problem 27 yo man with a history of resection of pituitary tumor, intraoperative hemorrhage and CVA, cognitive impairment, cortical blindness, partial L sided paralysis, seizure disorder, and panhypopituitarism (with DI, adrenal insufficiency, hypothyroidism, hypogonadis m) here with a left acetabular fracture that occurred in the setting of a possible seizure Hearing Precautions/Limitations WNL Precautions/Restrictions fall;weight bearing Precautions Comments NWB LLE Limitations/Impairments visual;safety/cognitive Treatment Number PT 1 Left Lower Extremity (Weight Bearing Status) nonweight bearing Living Environment Patient population Adult Living Environment Living Environment Comment Pt lives in a nursing home with 3 other roomates. The state fire marshal of the nursing home reports that they have a caregiver there 27/01. The bedrooms and shower are upstairs. The bathroom has grab bars and they can obtain a seat if necessary. Functional Level Prior Prior Functional Level Comment Prior to admission pt was fully ambulatory and climbing stairs. At baseline he yells out and moans. he has a decreased attention span and will remember things like TV shows that were prior to age 14. He enjoys country music. Carrot sticks and celery sticks are a good distraction from patient. At the nursing home he tends to wear jenas with no shirt as he tries to rip them off. He is able to communicate intermittently with verbal words. the caregivers help shower anddress him daily. ROM (Range of Motion) Additional Documentation General Assessment (Group) General Range of Motion Detail pt moving LE's volitionally in bed; able to sit 90-90 at EOB MMT (Manual Muscle Testing) Additional Documentation General Assessment (Group) General Manual Muscle Testing Assessment Detail unable to formally assess 2/2 cognition; however ptable to apple picker leg volitionally and stand up w/ assist Mobility Assessment/Training Additional Documentation Bed Mobility Assessment/Treatment (Group);Transfer Assessment/Treatment (Group);Weight-Bearing Status (Group) Weight-Bearing Status Extremity Weight Bearing Status left lower extremity Bed Mobility Assessment/Treatment Assistive Device (Bed Mobility) (elevated HOB) Scoot/Bridge [place] (Bed Mobility) minimum assist (75% patient effort) Kgyafz-vz-Zbj [place] (Bed Mobility) minimum assist (75% patient effort);2 person assist required Atf-ib-Oviaza [place] (Bed Mobility) minimum assist (75% patient effort);2 person assist required Impairments (Bed Mobility) coordination impaired;pain;ROM (range of motion) decreased;strength decreased Comment (Bed Mobility) pt able to initiate movements in bed; limited by pain; distraction techniqueof chewing gum worked well Transfer Assessment/Treatment [place] (Sit-Stand Transfers) minimum assist (75% patient effort);2 person assist required;verbal cues required [place] (Stand-Sit Transfers) minimum assist (75% patient effort);2 person assist required;verbal cues required Gfh-Lqqeu-Loh Assistive Device (Transfers) rolling walker Maintain Weight Bearing Status (Transfers) assist to maintain weight bearing status;cues to maintain weight bearing status Safety Issues (Transfers) weight-shifting ability decreased;loses balance backward;balance decreased during turns Impairments (Transfers) balance impaired;coordination impaired;pain;ROM (range of motion) decreased;strength decreased Comment (Transfers) pt able to stand at EOB; required knee block on RLE; assist from therapist to keep LLE off ground; demonstrated good strength Motor Skills/Interventions Additional Documentation Balance Skills Training (Group) Balance Skills Training Training Strategies (Balance) seated EOB Sitting Balance: Static normal balance Sitting Balance: Dynamic good balance Ngq-sr-Zbalq Balance fair balance Standing Balance: Static fair balance Plan of Care Review Plan Of Care Reviewed With patient;caregiver Physical Therapy Goal Types Physical Therapy Goal Types Bed Mobility Goal (Group);Gait Training Goal (Group);Transfer Training Goal (Group);Physical Therapy Goal (Group) Bed Mobility Goal Bed Mobility Goal, Date Established 09/09/17 Bed Mobility Goal, Time to Achieve by discharge Bed Mobility Goal, Activity Type all bed mobility activities Bed Mobility Goal, [place] Level moderate assist (50% patient effort) Gait Training Goal Gait Training Goal, Date Established 09/09/17 Gait Training Goal, Time to Achieve by discharge Gait Training Goal, [place] Level minimum assist (75% patient effort) Gait Training Goal, Assist Device walker, rolling Gait Training Goal, Distance to Achieve 15' Transfer Training Goal Transfer Training Goal, Date Established 09/09/17 Transfer Training Goal, Time to Achieve by discharge Transfer Training Goal, Activity Type kfr-fj-qinwy/dklsf-nl-ace;gvr-dq-saoev/aewkw-ro-iah Transfer Train Goal, [place] Level minimum assist (75% patient effort) Transfer Training Goal, Assist Device walker, rolling Physical Therapy Goal PT Goal, Date Established 09/09/17 PT Goal, Time to Achieve by discharge PT Goal, Activity Type Pt will propel self in w/c household distances PT Goal, [place] Level set up required;conditional independence Clinical Impression Rehab Potential fair, will monitor progress closely Therapy Frequency 2-4 times/wk Anticipated Equipment Needs at Discharge (TBD at rehab ) Anticipated Discharge Disposition half-way facility General Interventions Additional Documentation Planned Therapy Interventions (Group) Planned Therapy Interventions balance training;bed mobility training;gait training;home exercise program;ROM (range of motion);strengthening;stretching;transfer training;patient/family education * Plan of Care - Skyla Ayala OT - 09/09/2017 1:35 PM EST Occupational Therapy Evaluation Pertinent History of Current Problem: Pt is a 27 yo man with a history of resection of pituitary tumor, intraoperative hemorrhage and CVA, cognitive impairment, cortical blindness, partial L sided paralysis, seizure disorder, and panhypopituitarism (with DI, adrenal insufficiency, hypothyroidism, hy pogonadism) here with a left acetabular fracture that occurred in the setting of a possible seizure. Active Non-Hospital Problems Diagnosis ??? Insomnia ??? Blind ??? CVA (cerebral vascular accident) ??? Urinary incontinence Precautions/Restrictions: fall, weight bearing, other (see comments) (NWB L LE) Precautions Comments: L side weaker than R at baseline. Blind. Assessment: Pt has been seen by OT for evaluation, please refer to associated flowsheet data for details.Pt yells/moans at baseline, and speaks minimal words. He is legally blind. He sustained acetabular fx 2' ?Seizure. He presents with activity limitations and/or participation restrictions 2' pain, baseline c ognitive/behavioral/visual impairments, decreased standing balance, activity tolerance, and overallmobility. Pt was able to progress to sitting eob with min A of 2 and attempt to stand at the eob with use of walker and min A of 2. Pt needing help to maintain weight off L LE during task. Pt's vocalizations changed to reflect more discomfort; than his normal moans. These impairments have a significant impact on the patient's performance in the following areas of occupation: BADLs, IADLs, rest/sleep, leisure, and social participation. Pt would benefit from ongoing OT interventions to increase independence with self care and progress functional mobility while hospitalized. Given the set up of h is nursing home, anticipate a need for rehab. Staff Recommendations/Things to know: ?? Obtain a radio for Pt's room, as he loves country music. ?? Keep carrots and celery in the refrigerator, as it's a good distraction for him. He uses chewing as a coping mechanism. Gum also could be provided with supervision. ?? He likes knock knock jokes. ?? He usually just wears depends and jeans around his home. He likes to rip things and sometimes rips shirts off. Anticipated Discharge Disposition: half-way facility Pager: [phone] SKYLA AYALA, OT 09/09/2017 Occupational Therapy Rehabilitation Department 2017 OT Evaluation Code Rationale: ?? Diagnosis & Pertinent Co-Morbidities affecting Plan of Care: see PMHx ?? Occupational Profile & Client History: Brief Expanded Extensive x ?? Assessment of Occupational Performance: 1-3 performance deficits 3-5 performance deficits 5 + performance deficits x ?? Clinical Decision Making: Low Moderate High x Clinical decision making of high complexity using standardized patient assessment instrument and measurable assessment of functional outcome. 09/09/17 8451 Rehab Evaluation Document Type evaluation Total Evaluation Minutes, Occupational Therapy 45 (eval) Patient Effort adequate Symptoms Noted During/After Treatment increased pain General Information Patient/Family/Caregiver Comments/Observations Pt yelling/grunting at rest, and caregiver states that's his baseline. she states a higher pitch yell is pain. General Observations of Patient Pt lying in bed, in just a depends and with morse catheter in place. Caregiver present in room. She states he usually doesn't wear a shirt at home- as likes to rip them off. He wears jeans only and depends. Pertinent History of Current Problem Pt is a 27 yo man with a history of resection of pituitary tumor, intraoperative hemorrhage and CVA, cognitive impairment, cortical blindness, partial L sided paralysis, seizure disorder, and panhypopituitarism (with DI, adrenal insufficiency, hypothyroidism, hyp ogonadism) here with a left acetabular fracture that occurred in the setting of a possible seizure. Precautions/Restrictions fall;weight bearing;other (see comments) (NWB L LE) Precautions Comments L side weaker than R at baseline. Blind. Limitations/Impairments safety/cognitive;visual (blind) Treatment Number OT 1 Left Lower Extremity (Weight Bearing Status) nonweight bearing Living Environment Patient population Adult Living Environment Living Environment Comment Pt lives in a nursing home with 3 other roomates. The state fire marshal of the nursing home reports that they have a caregiver there 27/01. The bedrooms and shower are upstairs. The bathroom has grab bars and they can obtain a seat if necessary. Functional Level Prior Prior Functional Level Comment Prior to admission pt was fully ambulatory and climbing stairs. At baseline he yells out and moans. he has a decreased attention span and will remember things like TV shows that were prior to age 14. He enjoys country music, and his toys. Carrot sticks and celery sticks are a good distraction for patient. At the nursing home he tends to wear jeans with no shirt as he tries to rip them off. He is able to communicate intermittently with verbal words. the caregivers help shower and dress him daily. Self-Care Dominant Hand right Vision Assessment/Intervention Visual Impairment/Limitations legally blind Cognitive Assessment Interventions Behavior/Mood Observations (Cognitive) alert;restless (yelling/moaning at rest, few words audible) Orientation Status (Cognitive) unable/difficult to assess Attention (Cognitive) difficulty attending to task/directions;distractible;moderate impairment;severe impairment Follows Commands/Answers Questions (Cognitive) able to follow single-step instructions (maximal cues ) Personal Safety (Cognitive) impulsive;decreased insight to deficits;decreased awareness, need for safety;decreased awareness, need for assist Pain Scale/Rating Pain Assessment Scale Faces (Roberson-Carter FACES Pain Rating Scale) Pain Level 8 Pain Assessment Numbers/Faces/Word Factors That Aggravate Pain activity;movement Factors That Relieve Pain medication timing;repositioning;rest Nonverbal Indicators of Pain agitated;grimace;moaning;restless ROM (Range of Motion) General Range of Motion Detail B UEs moving anti-gravity and volitionally. 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 Weight-Bearing Status Extremity Weight Bearing Status left lower extremity Bed Mobility Assessment/Treatment Assistive Device (Bed Mobility) (HOB raised) Scoot/Bridge [place] (Bed Mobility) minimum assist (75% patient effort) Bebkxz-vm-Gzi [place] (Bed Mobility) minimum assist (75% patient effort);2 person assist required;verbal cues required (verbal/tactile cues) Phm-ap-Eksunv [place] (Bed Mobility) minimum assist (75% patient effort);2 person assist required Impairments (Bed Mobility) pain;strength decreased;coordination impaired;ROM (range of motion) decreased;other (see comments) (mental status) Comment (Bed Mobility) Pt relutant to sit initially 2' pain. Gave gum as likes to chew on things for a coping mechanism. Transfer Assessment/Treatment [place] (Sit-Stand Transfers) minimum assist (75% patient effort);2 person assist required;verbal cues required (tactile cues) [place] (Stand-Sit Transfers) minimum assist (75% patient effort);2 person assist required;verbal cues required Ilk-Rrzbb-Psv Assistive Device (Transfers) rolling walker Maintain Weight Bearing Status (Transfers) assist to maintain weight bearing status;cues to maintain weight bearing status Impairments (Transfers) balance impaired;pain;coordination impaired;ROM (range of motion) decreased;strength decreased;other (see comments) (mental status ) Lower Body Dressing Assessment/Training Position (LB Dressing) sitting [place] Level (LB Dressing) dependent (less than 25% patient effort) Impairments (LB Dressing) balance impaired;coordination impaired;pain;strength decreased (mental status) Comment (LB Dressing) for socks Toileting Assessment/Training Position (Toileting) supported sitting [place] Level (Toileting) dependent (less than 25% patient effort) Impairments (Toileting) pain;coordination impaired;strength decreased (poor initation, awareness, decreased mobility ) Comment (Toileting) has catheter and wearing depends. Gave Pt gum as Pt was trying to chew his diaper. Balance Skills Training Training Strategies (Balance) seated eob Sitting Balance: Static normal balance Sitting Balance: Dynamic good balance [place] Balance fair balance Standing Balance: Static fair balance Plan of Care Review Plan Of Care Reviewed With caregiver;patient Bathing Goal Bathing Goal, Date Established 09/09/17 Bathing Goal, Time to Achieve 2 wks Bathing Goal, Activity Type Pt will be able to sustain sitting eob with supervision and complete UBbathing with min A /p set-up, and with verbal cues. Eating Self-Feeding Goal Eat Self Feeding Goal, Date Established 09/09/17 Eat Self Feeding Goal, Time to Achieve 2 wks Eat Self Feeding Goal, Activity Type Pt will be able to transfer to the chair with min A of 2 and use of a walker- to promote increased activity and improved positioning for task. Toileting Goal Toileting Goal, Date Established 09/09/17 Toileting Goal, Time to Achieve 2 wks Toileting Goal, Activity Type Pt will be able to stand and pivot to the commode vs. slide to commode with min A of 2, appropriate AD, and comply to weight bearing restrictions. LB Dressing Goal LB Dressing Goal, Date Established 09/09/17 LB Dressing Goal, Time to Achieve 2 wks LB Dressing Goal, Activity Type Pt will maintain weight bearing restrictions and be able to sustainstanding with 1 assist and walker as caregiver hikes pants to/from waist. Occupational Therapy Goal OT Goal, Date Established 09/09/17 OT Goal, Time to Achieve 2 wks OT Goal, Activity Type Pt will tolerate sitting upright in chair for > 30 min for ther. activity/play task. Clinical Impression Criteria for Skilled Therapeutic Interventions Met treatment indicated Rehab Potential good, to achieve stated therapy goals Therapy Frequency 2-4 times/wk Anticipated Equipment Needs at Discharge (FWW, wheelchair, commode, shower seat) Anticipated Discharge Disposition half-way facility General Therapy Interventions Planned Therapy Interventions ADL retraining;IADL retraining;balance training;bed mobility training;ROM (range of motion);strengthening;transfer training;other (see comments) (ther. activity/play, communication strategies, coping mech. ) * Plan of Care - Elsy Mei RN - 09/09/2017 3:32 AM EST Problem: Patient Care Overview Goal: Plan of Care Review Outcome: Ongoing (Interventions Implemented as Appropriate) 09/08/17193609/09/17 0323 Coping/Psychosocial Plan Of Care Reviewed With patient;caregiver -- Plan of Care Review Progress -- improving OUTCOME EVALUATION NOTE: OUTCOME SUMMARY: Patient alert, slightly tachycardic overnight (up to 119 bpm); VSs stable. Patient very uncomfortable at start of shift; IV dilaudid and repositioned to good effect. Pain well controlled with PRN PO dilaudid throughout the night. Patient slept between care. Incontinence care provided. Morse in place collecting large amounts of light, clear, urine. Mepilex to Lateral incision saturated with serousdrainage; dressing changed. All other dressings c/d/i. Care provider remains at bedside and states that the pt seems like his old self. Will continue to monitor. PLAN MOVING FORWARD: Continue to monitor pain, PT, discharge planning INDIVIDUALIZED FALL PREVENTION INTERVENTIONS: Patient-specific fall risk factors per assessment: [current deficits]: Narcotic medications, surgery, hospital environment, generalized weakness, left sided weakness, blind. Assistance [level of assistance required for transfers and ambulation]: two person reposition Supervision [direct monitoring required during toileting and ADLs]: Completely dependent. Surveillance [continuous indirect monitoring]: Masimo, purposeful rounding, pharmacist critical care at bedside, hourly safety checks. Patient-specific fall prevention interventions for sensory deficits provided, if applicable: CPG GOAL OUTCOME EVALUATION: Goal: Individualization & Mutuality Outcome: Ongoing (Interventions Implemented as Appropriate) 09/05/17 0607 09/07/17 0504 09/09/17 0323 Individualization Patient Specific Preferences Able to answer yes/no questions -- -- Patient Specific Goals Rest, mobilize -- -- Patient Specific Interventions -- -- diaper for incontinence Mutuality/Individual Preferences What Anxieties, Fears or Concerns Do You Have About Your Health or Care? -- ISHAAN -- What Questions Do You Have About Your Health or Care? -- ISHAAN -- What Information Would Help Us Give You More Personalized Care? -- ISHAAN -- Goal: Fall Prevention-Safe Patient Handling Outcome: Ongoing (Interventions Implemented as Appropriate) 09/08/171936 Restraint Interventions Safety Promotion/Fall Prevention activity supervised;fall prevention program maintained;safety round/check completed Activity Activity Type activity adjusted per tolerance Activity Assistance Provided assistance, 2 people Positioning Body Position side-lying, left Daily Care Interventions Self-Care Promotion independence encouraged;BADL personal objects within reach [place] Fall Risk History of Falling 0 Secondary Diagnosis 15 Ambulatory Aids 0 Intravenous Therapy/Heparin/Saline Lock 20 Gait/Transferring 0 Mental Status 15 Score 50 OTHER [place] Fall Risk High Goal: Infection Control Outcome: Ongoing (Interventions Implemented as Appropriate) 09/08/171936 Safety Interventions Isolation Precautions standard precautions maintained Infection Prevention environmental surveillance performed;rest/sleep promoted;single patient room provided Coping Strategies Supportive Measures active listening utilized;goal setting facilitated;problem solving facilitated;verbalization of feelings encouraged Goal: Discharge Needs Assessment Outcome: Ongoing (Interventions Implemented as Appropriate) 09/07/17 0504 09/08/17 0403 Discharge Needs Assessment Concerns To Be Addressed -- no discharge needs identified Readmission Within The Last 30 Days -- no previous admission in last 30 days Equipment Needed After Discharge -- other (see comments) (TBD) Current Discharge Risk -- cognitively impaired;physical impairment Discharge Disposition -- still a patient Current Health Outpatient/Agency/Support Group Needs -- nursing home (specify) Anticipated Changes Related to Illness -- none Living Environment Transportation Available -- other (see comments) (member from nursing home can provide) Activity/Self Care Review of Systems Equipment Currently Used at Home none -- Goal: Interdisciplinary Rounds/Family Conf Outcome: Ongoing (Interventions Implemented as Appropriate) 09/06/17 0350 Interdisciplinary Rounds/Family Conf Participants patient;nursing Problem: Skin Integrity Impairment, Risk/Actual (Adult) Goal: Identify Related Risk Factors and Signs and Symptoms Related risk factors and signs and symptoms are identified upon initiation of Human Response Clinical Practice Guideline (CPG) Outcome: Ongoing (Interventions Implemented as Appropriate) 09/06/17 0350 Skin Integrity Impairment, Risk/Actual Skin Integrity Impairment, Risk/Actual: Related Risk Factors cognitive impairment;traumatic injury Goal: Skin Integrity/Wound Healing Patient will demonstrate the desired outcomes by discharge/transition of care. Outcome: Ongoing (Interventions Implemented as Appropriate) 09/06/17 0350 Skin Integrity Impairment, Risk/Actual (Adult) Skin Integrity/Wound Healing making progress toward outcome Problem: Fracture Orthopaedic (Adult) Goal: Signs and Symptoms of Listed Potential Problems Will be Absent, Minimized or Managed (Fracture Orthopaedic) Signs and symptoms of listed potential problems will be absent, minimized or managed by discharge/transition of care (reference Fracture Orthopaedic (Adult) CPG). Outcome: Ongoing (Interventions Implemented as Appropriate) 09/08/17 193 Fracture Orthopaedic Problems Assessed (Orthopaedic Fracture) all Problems Present (Orthopaedic Fracture) pain * Initial Assessments - Minerva Boyce RN - 09/08/2017 3:47 PM EST Office of Care Management Initial Assessment ??Copy of Progress note of Solitario Kelsey RN of 09/08/17 CHAVEZ KELSEY RN reviewed record and discussed patient with Care Team. ?? Source of Information: [facility] and care givers x 2 Introduced self/reviewed role; services accepted. ?? Reason for Hospitalization: 27 yo man with a history of??resection of pituitary tumor, intraoperative hemorrhage and??CVA, cognitive impairment, cortical blindness, partial L sided paralysis, seizuredisorder, and panhypopituitarism (with DI, adrenal insufficiency, hypothyroidism, hypogonadism) here with a left acetabular fracture that occurred in the setting of a possible seizure. ? Hospitalizations Within the Past 30 Days: No ?? Anticipated Length Of Stay (If known): TBD ?? Current Decision-Making Capacity: sister Bettina Mason (Sibling) [address] [facility] [place] [address] (H)- ?? Advance Care Planning: not on file Current Coping/Education/Information Needs: Coping well per care givers ?? Current Functional Ability: has not had PT yet per care givers ?? Functional Status Prior to Admission: lives in nursing home setting on 2nd level able to ascend stairs, showers self with stand by assist r/t blindness per care givers, non communicative however the care givers seem able to understand at least some of pt's attempts of communication. ?? Home Environment: 3 level nursing home- [facility] [place] ?? Social & Family Supports/Community Resources: Extended Emergency Contact Information Primary Emergency Contact: Bettina Mason Address: [address] [place] [address] Relation: Sibling ?? Behavioral Health History: NA ?? Substance Use/Abuse: NA ?? Other Pertinent/Service Specific Information: unlikely be able to return to nursing home immediately ?? Health/Prescription Coverage: Primary Insurance: Payor: [place] / Plan[place] / Product Type: *No Product type* / Secondary Insurance: Prescription Coverage: see above Preferred Pharmacy: No Pharmacies Listed Other: None ?? Primary Care Provider: NAKIA Cifuentes [phone] ?? Patient/Caregiver Goals of Treatment: Safe discharge ? Potential Needs for Transition of Care: Rehab/SNF: TBD Home Health: no DME: no Dialysis: No Community Resources: No Transportation: ambulance Other: None ?? Anticipated Barriers to Discharge/Special Considerations: None ?? Plan: Per discussion with care givers pt may be near facilities such as [facility] and [facility] in [place]. CM will need to connect with sister for choices ?? A member of the Care Management team will continue to monitor progress, follow for continuity of care and assist with transition of care planning. ?? CHAVEZ KELSEY RN Pager: [phone] ? * Plan of Care - Josefina Miranda RN - 09/08/2017 2:56 PM EST Problem: Patient Care Overview Goal: Plan of Care Review 09/06/17 0350 09/07/17 2130 Coping/Psychosocial Plan Of Care Reviewed With -- caregiver Plan of Care Review Progress no change -- Goal: Individualization & Mutuality 09/05/17 0607 09/07/17 0504 Individualization Patient Specific Preferences Able to answer yes/no questions -- Patient Specific Goals Rest, mobilize -- Mutuality/Individual Preferences What Anxieties, Fears or Concerns Do You Have About Your Health or Care? -- ISHAAN What Questions Do You Have About Your Health or Care? -- ISHAAN What Information Would Help Us Give You More Personalized Care? -- ISHAAN Goal: Fall Prevention-Safe Patient Handling 09/07/17212909/08/17814 Restraint Interventions Safety Promotion/Fall Prevention -- activity supervised;fall prevention program maintained;nonskid shoes/slippers when out of bed;safety round/check completed Activity Activity Type -- activity adjusted per tolerance Activity Assistance Provided -- assistance, 2 people Positioning Body Position -- side-lying, left Daily Care Interventions Self-Care Promotion independence encouraged;BADL personal objects within reach -- [place] Fall Risk History of Falling -- 0 Secondary Diagnosis -- 15 Ambulatory Aids -- 0 Intravenous Therapy/Heparin/Saline Lock -- 20 Gait/Transferring -- 0 Mental Status -- 15 Score -- 50 OTHER [place] Fall Risk -- High Goal: Infection Control 09/07/17212909/08/17814 Safety Interventions Isolation Precautions -- standard precautions maintained Infection Prevention -- environmental surveillance performed;rest/sleep promoted Coping Strategies Supportive Measures active listening utilized;goal setting facilitated;positive reinforcement provided;verbalization of feelings encouraged -- Goal: Discharge Needs Assessment 09/07/1750309/08/17402 Discharge Needs Assessment Concerns To Be Addressed -- no discharge needs identified Readmission Within The Last 30 Days -- no previous admission in last 30 days Equipment Needed After Discharge -- other (see comments) (TBD) Current Discharge Risk -- cognitively impaired;physical impairment Discharge Disposition -- still a patient Current Health Outpatient/Agency/Support Group Needs -- nursing home (specify) Anticipated Changes Related to Illness -- none Living Environment Transportation Available -- other (see comments) (member from nursing home can provide) Activity/Self Care Review of Systems Equipment Currently Used at Home none -- Goal: Interdisciplinary Rounds/Family Conf 09/06/17349 Interdisciplinary Rounds/Family Conf Participants patient;nursing Problem: Skin Integrity Impairment, Risk/Actual (Adult) Goal: Identify Related Risk Factors and Signs and Symptoms Related risk factors and signs and symptoms are identified upon initiation of Human Response Clinical Practice Guideline (CPG) 03/03/18 0350 Skin Integrity Impairment, Risk/Actual Skin Integrity Impairment, Risk/Actual: Related Risk Factors cognitive impairment;traumatic injury OUTCOME EVALUATION NOTE: OUTCOME SUMMARY: PLAN MOVING FORWARD: -[x]Pain Control -[x]Mobilize -[x]Safety INDIVIDUALIZED FALL PREVENTION: Fall Score: High Baseline mobility: NWB to LLE Assistance: --assist with walker Supervision: -[x]Hands-on for all transfers and ambulation -[x]Eyes-on for all transfers and ambulation -[x]Arms-Reach for all transfers and ambulation Surveillance: -[x]Bed Alarm/Chair Alarm -[x]Purposeful Rounding -[x]Team Care -[x]Bedside Nurse Knowledge Exchange CPG OUTCOME EVALUATION: Goal: Skin Integrity/Wound Healing Patient will demonstrate the desired outcomes by discharge/transition of care. 09/06/17349 Skin Integrity Impairment, Risk/Actual (Adult) Skin Integrity/Wound Healing making progress toward outcome * Plan of Care - Elsy Mei RN - 09/08/2017 4:13 AM EST Problem: Patient Care Overview Goal: Plan of Care Review Outcome: Ongoing (Interventions Implemented as Appropriate) 09/06/1734909/07/172129 Coping/Psychosocial Plan Of Care Reviewed With -- caregiver Plan of Care Review Progress no change -- OUTCOME EVALUATION NOTE: OUTCOME SUMMARY: Patient alert, slightly tachycardic (up to 113 bpm), but all VSs stable. Incontinence care provided; BM x1 overnight. Morse in place, collecting adequate amounts of CYU. 24 hour urine collection maintained (will be complete at 1800 09/08/17). Pain well controlled with single PRN dose of PO dilaudid and scheduled tylenol. Silver mepilex to transverse abdomen c/d/i. Mepilex to left lateral hip incision changed d/t large amount of serous drainage (non odorous). Mepilex to left thigh c/d/i. Pt slept between care. Will continue to monitor. PLAN MOVING FORWARD: Continue to monitor pain, Mobilize, PT, discharge planning. INDIVIDUALIZED FALL PREVENTION INTERVENTIONS: Patient-specific fall risk factors per assessment: [current deficits]: Narcotic medications, surgery, hospital environment, blind, left-sided weakness, generalized weakness. Assistance [level of assistance required for transfers and ambulation]: two person reposition Supervision [direct monitoring required during toileting and ADLs]: Hands on. Surveillance [continuous indirect monitoring]: Masimo, purposeful rounding, bed alarm, hourly safety checks. Patient-specific fall prevention interventions for sensory deficits provided, if applicable: CPG GOAL OUTCOME EVALUATION: Goal: Individualization & Mutuality Outcome: Ongoing (Interventions Implemented as Appropriate) 09/05/1760609/07/17503 Individualization Patient Specific Preferences Able to answer yes/no questions -- Patient Specific Goals Rest, mobilize -- Mutuality/Individual Preferences What Anxieties, Fears or Concerns Do You Have About Your Health or Care? -- ISHAAN What Questions Do You Have About Your Health or Care? -- ISHAAN What Information Would Help Us Give You More Personalized Care? -- ISHAAN Goal: Fall Prevention-Safe Patient Handling Outcome: Ongoing (Interventions Implemented as Appropriate) 09/07/17212909/08/17402 Restraint Interventions Safety Promotion/Fall Prevention activity supervised;safety round/check completed -- Activity Activity Type activity adjusted per tolerance -- Activity Assistance Provided assistance, 2 people -- Positioning Body Position -- side-lying, left;weight shift assistance provided;supine, head elevated Daily Care Interventions Self-Care Promotion independence encouraged;BADL personal objects within reach -- [place] Fall Risk History of Falling 0 -- Secondary Diagnosis 15 -- Ambulatory Aids 0 -- Intravenous Therapy/Heparin/Saline Lock 20 -- Gait/Transferring 0 -- Mental Status 15 -- Score 50 -- OTHER [place] Fall Risk High -- Goal: Infection Control Outcome: Ongoing (Interventions Implemented as Appropriate) 09/07/172129 Safety Interventions Isolation Precautions standard precautions maintained Infection Prevention environmental surveillance performed;rest/sleep promoted;single patient room provided Coping Strategies Supportive Measures active listening utilized;goal setting facilitated;positive reinforcement provided;verbalization of feelings encouraged Goal: Discharge Needs Assessment Outcome: Ongoing (Interventions Implemented as Appropriate) 09/07/1750309/08/17402 Discharge Needs Assessment Concerns To Be Addressed -- no discharge needs identified Readmission Within The Last 30 Days -- no previous admission in last 30 days Equipment Needed After Discharge -- other (see comments) (TBD) Current Discharge Risk -- cognitively impaired;physical impairment Discharge Disposition -- still a patient Current Health Outpatient/Agency/Support Group Needs -- nursing home (specify) Anticipated Changes Related to Illness -- none Living Environment Transportation Available -- other (see comments) (member from nursing home can provide) Activity/Self Care Review of Systems Equipment Currently Used at Home none -- Goal: Interdisciplinary Rounds/Family Conf Outcome: Ongoing (Interventions Implemented as Appropriate) 09/06/17349 Interdisciplinary Rounds/Family Conf Participants patient;nursing Problem: Skin Integrity Impairment, Risk/Actual (Adult) Goal: Identify Related Risk Factors and Signs and Symptoms Related risk factors and signs and symptoms are identified upon initiation of Human Response Clinical Practice Guideline (CPG) Outcome: Ongoing (Interventions Implemented as Appropriate) 09/06/17349 Skin Integrity Impairment, Risk/Actual Skin Integrity Impairment, Risk/Actual: Related Risk Factors cognitive impairment;traumatic injury Goal: Skin Integrity/Wound Healing Patient will demonstrate the desired outcomes by discharge/transition of care. Outcome: Ongoing (Interventions Implemented as Appropriate) 09/06/17349 Skin Integrity Impairment, Risk/Actual (Adult) Skin Integrity/Wound Healing making progress toward outcome Problem: Fracture Orthopaedic (Adult) Goal: Signs and Symptoms of Listed Potential Problems Will be Absent, Minimized or Managed (Fracture Orthopaedic) Signs and symptoms of listed potential problems will be absent, minimized or managed by discharge/transition of care (reference Fracture Orthopaedic (Adult) CPG). Outcome: Ongoing (Interventions Implemented as Appropriate) 09/06/17213409/07/172129 Fracture Orthopaedic Problems Assessed (Orthopaedic Fracture) -- all Problems Present (Orthopaedic Fracture) pain -- * Plan of Care - Lisa Person RN - 09/06/2017 3:00 PM EST Problem: Patient Care Overview Goal: Plan of Care Review Outcome: Ongoing (Interventions Implemented as Appropriate) 09/06/1734909/06/17 1014 Coping/Psychosocial Plan Of Care Reviewed With -- patient Plan of Care Review Progress no change -- OUTCOME EVALUATION NOTE: ?? OUTCOME SUMMARY: ?? Pt rested between care today. Caregiver at bedside and attentive to patient. HR sustaining in 90s. Labs done q4 and q8. Pt reporting no pain. 24 urine collection started at 5am this morning. Morse draining CYU. Pt repositioned in bed q2. Will continue to monitor. ?? PLAN MOVING FORWARD: ?? Pain control, repositioning, mobility PT/OT, d/c planning ?? INDIVIDUALIZED FALL PREVENTION INTERVENTIONS: ?? Patient-specific fall risk factors per assessment: [current deficits]: Cognitive impairment, blindness, recent surgery, hospital environment ?? Assistance [level of assistance required for transfers and ambulation]: 2 person assist w/ repositioning ?? Supervision [direct monitoring required during toileting and ADLs]: Hands on, eyes on ?? Surveillance [continuous indirect monitoring]: Masimo, purposeful rounding, bed alarm, caregiver atbedside ?? Patient-specific fall prevention interventions for sensory deficits provided, if applicable: [X] N/A ? CPG GOAL OUTCOME EVALUATION: Goal: Fall Prevention-Safe Patient Handling Outcome: Ongoing (Interventions Implemented as Appropriate) 09/04/17 0853 09/05/17 1026 09/06/17 1014 Restraint Interventions Safety Promotion/Fall Prevention -- -- activity supervised;fall prevention program maintained;safety round/check completed Activity Activity Type -- activity adjusted per tolerance -- Activity Assistance Provided assistance, 3 or more people -- -- Positioning Body Position -- -- -- Daily Care Interventions Self-Care Promotion -- -- independence encouraged;BADL personal objects within reach;meal setup provided [place] Fall Risk History of Falling -- -- 0 Secondary Diagnosis -- -- 15 Ambulatory Aids -- -- 0 Intravenous Therapy/Heparin/Saline Lock -- -- 20 Gait/Transferring -- -- 20 Mental Status -- -- 15 Score -- -- 70 OTHER [place] Fall Risk -- -- High 09/06/17 1200 Restraint Interventions Safety Promotion/Fall Prevention -- Activity Activity Type -- Activity Assistance Provided -- Positioning Body Position side-lying, left Daily Care Interventions Self-Care Promotion -- [place] Fall Risk History of Falling -- Secondary Diagnosis -- Ambulatory Aids -- Intravenous Therapy/Heparin/Saline Lock -- Gait/Transferring -- Mental Status -- Score -- OTHER [place] Fall Risk -- Goal: Infection Control Outcome: Ongoing (Interventions Implemented as Appropriate) 09/06/17 1014 Safety Interventions Isolation Precautions standard precautions maintained Infection Prevention barrier precautions utilized;rest/sleep promoted;single patient room provided Coping Strategies Supportive Measures active listening utilized;positive reinforcement provided;verbalization of feelings encouraged;counseling provided;decision- making supported Problem: Skin Integrity Impairment, Risk/Actual (Adult) Goal: Identify Related Risk Factors and Signs and Symptoms Related risk factors and signs and symptoms are identified upon initiation of Human Response Clinical Practice Guideline (CPG) Outcome: Ongoing (Interventions Implemented as Appropriate) 09/06/17349 Skin Integrity Impairment, Risk/Actual Skin Integrity Impairment, Risk/Actual: Related Risk Factors cognitive impairment;traumatic injury Goal: Skin Integrity/Wound Healing Patient will demonstrate the desired outcomes by discharge/transition of care. Outcome: Ongoing (Interventions Implemented as Appropriate) 09/06/17349 Skin Integrity Impairment, Risk/Actual (Adult) Skin Integrity/Wound Healing making progress toward outcome Problem: Fracture Orthopaedic (Adult) Goal: Signs and Symptoms of Listed Potential Problems Will be Absent, Minimized or Managed (Fracture Orthopaedic) Signs and symptoms of listed potential problems will be absent, minimized or managed by discharge/transition of care (reference Fracture Orthopaedic (Adult) CPG). Outcome: Ongoing (Interventions Implemented as Appropriate) 09/06/17349 Fracture Orthopaedic Problems Assessed (Orthopaedic Fracture) all Problems Present (Orthopaedic Fracture) pain * Plan of Care - [place] Forman RN - 09/06/2017 3:58 AM EST Problem: Patient Care Overview Goal: Plan of Care Review Outcome: Ongoing (Interventions Implemented as Appropriate) 09/06/17349 Coping/Psychosocial Plan Of Care Reviewed With patient Plan of Care Review Progress no change OUTCOME EVALUATION NOTE: OUTCOME SUMMARY: Patient progressing towards d/c goals slowly at this time. Patient denying pain this shift, denies discomfort. Resting comfortably in between care with it security analyst at bedside. Repositioned frequently to prevent skin breakdown. Labs completed q4h as ordered, 24h urine collection started at 0400. HR maintained in low 100s to 90s this shift. Morse draining clear yellow urine. Pt denies numbness/tingling. Weakness noted in left side related to hx of CVA. Dressings to abdomen c/d/i. Critical HGB this AM 7.4, team aware. Will continue to monitor and help patient reach d/c goals. PLAN MOVING FORWARD: Pain control Mobilize D/c planning INDIVIDUALIZED FALL PREVENTION: Patient is currently a high risk to Fall. Patient educated on bed/chair alarm, demonstrates proper use of call morris and verbalizes understanding of fall preventions implemented. Patient-specific fall risk factors per assessment: [current deficits]: Blindness, Cognitive impairment, Pain, Medications, Hospital Environment. Assistance [level of assistance required for transfers and ambulation]: Two person assist to turn Supervision [direct monitoring required during toileting and ADLs]: Total assistance with ADL's Surveillance [continuous indirect monitoring]: Masimo, Purposeful Rounding, Bedside Report Patient-specific fall prevention interventions for sensory deficits provided, if applicable: [X] N/A CPG GOAL OUTCOME EVALUATION: Goal: Individualization & Mutuality Outcome: Ongoing (Interventions Implemented as Appropriate) 09/05/17 0607 Individualization Patient Specific Preferences Able to answer yes/no questions Patient Specific Goals Rest, mobilize Goal: Fall Prevention-Safe Patient Handling Outcome: Ongoing (Interventions Implemented as Appropriate) 09/04/17 0853 09/05/17 1026 09/05/17 2100 Restraint Interventions Safety Promotion/Fall Prevention -- -- activity supervised;fall prevention program maintained;muscle strengthening facilitated;safety round/check completed Activity Activity Type -- activity adjusted per tolerance -- Activity Assistance Provided assistance, 3 or more people -- -- Positioning Body Position -- -- side-lying, left Daily Care Interventions Self-Care Promotion -- -- independence encouraged;BADL personal objects within reach;BADL personal routines maintained;safe use of adaptive equipment encouraged [place] Fall Risk History of Falling -- -- 0 Secondary Diagnosis -- -- 15 Ambulatory Aids -- -- 0 Intravenous Therapy/Heparin/Saline Lock -- -- 20 Gait/Transferring -- -- 20 Mental Status -- -- 15 Score -- -- 70 OTHER [place] Fall Risk -- -- High Goal: Infection Control Outcome: Ongoing (Interventions Implemented as Appropriate) 09/05/17 2100 Safety Interventions Isolation Precautions standard precautions maintained Infection Prevention barrier precautions utilized;rest/sleep promoted;single patient room provided Coping Strategies Supportive Measures active listening utilized;counseling provided;decision- making supported Goal: Interdisciplinary Rounds/Family Conf Outcome: Ongoing (Interventions Implemented as Appropriate) 09/06/17 0350 Interdisciplinary Rounds/Family Conf Participants patient;nursing Problem: Skin Integrity Impairment, Risk/Actual (Adult) Goal: Identify Related Risk Factors and Signs and Symptoms Related risk factors and signs and symptoms are identified upon initiation of Human Response Clinical Practice Guideline (CPG) Outcome: Ongoing (Interventions Implemented as Appropriate) 09/06/17 035 Skin Integrity Impairment, Risk/Actual Skin Integrity Impairment, Risk/Actual: Related Risk Factors cognitive impairment;traumatic injury Goal: Skin Integrity/Wound Healing Patient will demonstrate the desired outcomes by discharge/transition of care. Outcome: Ongoing (Interventions Implemented as Appropriate) 09/06/17 035 Skin Integrity Impairment, Risk/Actual (Adult) Skin Integrity/Wound Healing making progress toward outcome Problem: Fracture Orthopaedic (Adult) Goal: Signs and Symptoms of Listed Potential Problems Will be Absent, Minimized or Managed (Fracture Orthopaedic) Signs and symptoms of listed potential problems will be absent, minimized or managed by discharge/transition of care (reference Fracture Orthopaedic (Adult) CPG). Outcome: Ongoing (Interventions Implemented as Appropriate) 09/06/17349 Fracture Orthopaedic Problems Assessed (Orthopaedic Fracture) all Problems Present (Orthopaedic Fracture) pain * Plan of Care - Lisa Person RN - 09/05/2017 2:33 PM EST Problem: Patient Care Overview Goal: Plan of Care Review Outcome: Ongoing (Interventions Implemented as Appropriate) 09/05/17 0607 09/05/17 1026 Coping/Psychosocial Plan Of Care Reviewed With -- patient;daughter Plan of Care Review Progress no change -- OUTCOME EVALUATION NOTE: OUTCOME SUMMARY: Pt rested between care today. Caregiver at bedside. Pts HR was in 115s-120s this morning, was sustaining in 130s, aware no new orders at this time. Pt is currently sustaining HR in low 100's. Given IV bolus x2 of NS for suspected hypovolemia. Pt reporting no pain. Wound care consulted pt, as he is not able to turn in bed. Per wound care turned q2, and heels kept elevated. Will continue to monitor. PLAN MOVING FORWARD: Pain control, repositioning, mobility PT/OT, d/c planning INDIVIDUALIZED FALL PREVENTION INTERVENTIONS: Patient-specific fall risk factors per assessment: [current deficits]: Cognitive impairment, blindness, recent surgery, hospital environment Assistance [level of assistance required for transfers and ambulation]: 2 person assist w/ repositioning Supervision [direct monitoring required during toileting and ADLs]: Hands on, eyes on Surveillance [continuous indirect monitoring]: Masimo, purposeful rounding, bed alarm, caregiver atbedside Patient-specific fall prevention interventions for sensory deficits provided, if applicable: [X] N/A CPG GOAL OUTCOME EVALUATION: Goal: Fall Prevention-Safe Patient Handling Outcome: Ongoing (Interventions Implemented as Appropriate) 09/04/17 0853 09/05/17 0910 09/05/17 1026 Restraint Interventions Safety Promotion/Fall Prevention -- -- activity supervised;fall prevention program maintained;safety round/check completed Activity Activity Type -- -- activity adjusted per tolerance Activity Assistance Provided assistance, 3 or more people -- -- Positioning Body Position -- supine, head elevated -- Daily Care Interventions Self-Care Promotion -- -- independence encouraged;BADL personal objects within reach [place] Fall Risk History of Falling -- -- 0 Secondary Diagnosis -- -- 15 Ambulatory Aids -- -- 0 Intravenous Therapy/Heparin/Saline Lock -- -- 20 Gait/Transferring -- -- 20 Mental Status -- -- 15 Score -- -- 70 OTHER [place] Fall Risk -- -- High Goal: Infection Control Outcome: Ongoing (Interventions Implemented as Appropriate) 09/05/17 1026 Safety Interventions Isolation Precautions standard precautions maintained Infection Prevention barrier precautions utilized;personal protective equipment utilized;rest/sleeppromoted;single patient room provided Coping Strategies Supportive Measures active listening utilized;decision-making supported;positive reinforcement provided;verbalization of feelings encouraged Problem: Skin Integrity Impairment, Risk/Actual (Adult) Goal: Identify Related Risk Factors and Signs and Symptoms Related risk factors and signs and symptoms are identified upon initiation of Human Response Clinical Practice Guideline (CPG) Outcome: Ongoing (Interventions Implemented as Appropriate) 09/05/17 06 Skin Integrity Impairment, Risk/Actual Skin Integrity Impairment, Risk/Actual: Related Risk Factors cognitive impairment;traumatic injury Goal: Skin Integrity/Wound Healing Patient will demonstrate the desired outcomes by discharge/transition of care. Outcome: Ongoing (Interventions Implemented as Appropriate) 09/05/17 06 Skin Integrity Impairment, Risk/Actual (Adult) Skin Integrity/Wound Healing making progress toward outcome Problem: Fracture Orthopaedic (Adult) Goal: Signs and Symptoms of Listed Potential Problems Will be Absent, Minimized or Managed (Fracture Orthopaedic) Signs and symptoms of listed potential problems will be absent, minimized or managed by discharge/transition of care (reference Fracture Orthopaedic (Adult) CPG). Outcome: Ongoing (Interventions Implemented as Appropriate) 09/05/17 0607 Fracture Orthopaedic Problems Assessed (Orthopaedic Fracture) all Problems Present (Orthopaedic Fracture) pain * Consult Note - Isabel Garcia RN - 09/05/2017 12:28 PM EST Certified Wound Care Nurse Note Situation: Asked to see Miguel Angel Mason by Nursing for Patient is unable to turn Background: eD-H notes reviewed for history, admitting diagnosis and active problem list. Wound Assessment and Care Provided: Patient greeted and reason for visit stated. board design engineer at bedside. RN at bedside, patient able to turn with one person assist. Sacral Mepilex removed. Sacrum is pink and blanching. Mepilex replaced. Elbows and Heels are pink and blanchable. Patient positioned onto his left side, Heels floated. Baljeet Score: 15 Last Pressure Ulcer Prevention assessment: Shift Pressure Injury Prevention Occiput: No Injury Thoracic Spine: No Injury Sacral: No Injury Ischial - left: No Injury Ischial - right: No Injury Heel - left: No Injury Heel - right: No Injury Elbow - left: No Injury Elbow - right: No Injury Device Sites: O2 sat monitor, IV sites, morse Other Sites: (traction) Current bed: [facility] Assessment: No active pressure injury's at this time. Wound Care Recommendations: Refer to adult/pediatric pressure ulcer prevention job aid in the clinical policy library highlighting the following points: Mobility: Turn and reposition every 2 hours and document in ED-H. Place a pillow above and below sacral area to off load pressure to the sacrum Offload pressure from heels by placing pillows lengthwise beneath legs while in bed. Offload pressure from heels by adjusting length of foot of bed. Friction and Shear: Reposition avoiding shear forces, utilizing maxislide, trendelenberg and max inflate (boost) feature on beds to assist with repositioning. Position hips at triangle icon on bed. Use skin prep on heels and elbows bid. Keep HOB less than or equal to 30 degrees. Use Nourishing Skin Cream after baths for extra dry skin Discussed plan with: RN: Lisa Person Please contact Isabel Garcia RN on pager [phone] or the wound care team at [phone] or pager [phone] skin and wound care concerns or questions. * Plan of Care - [place] Forman RN - 09/05/2017 6:47 AM EST Problem: Patient Care Overview Goal: Plan of Care Review Outcome: Ongoing (Interventions Implemented as Appropriate) 09/05/17 0607 Coping/Psychosocial Plan Of Care Reviewed With patient Plan of Care Review Progress no change OUTCOME EVALUATION NOTE: OUTCOME SUMMARY: Patient progressing towards d/c goals slowly at this time. Patients pain adequately controlled, seeMAR for medications given. Pt's HR was tachy for most of shift, MEAT LOINER paged and EKG ordered. IV metoprolol given x2 for HR in 140s, but pt sustained in 120s for most of shift. Phosphorus and Magnesiumordered with AM labs, phos critical at 1.1, MEAT LOINER notified. IV K phosphate ordered. Pt was very restless, moaning and pulling at tubing until approx. 0400. Removed L hand IV and R hip ZOHAIB. Dressings applied, no bleeding noted from ZOHAIB site. Dressing to LLE and abdomen c/d/i. Feet noted to be mottled but warm, pt's sister states this is baseline. Pt's breathing also seemed to be labored and shallow, RR high. Team aware, no interventions ordered. Pt communicates effectively with yes/no questions. Denies chest pain, SOB, numbness/tingling. Will continue to monitor and help patient reach d/c goals. PLAN MOVING FORWARD: Pain control Mobilize D/c planning INDIVIDUALIZED FALL PREVENTION: Patient is currently a high risk to Fall. Patient educated on bed/chair alarm, demonstrates proper use of call morris and verbalizes understanding of fall preventions implemented. Patient-specific fall risk factors per assessment: [current deficits]: Blindness, Cognitive Impairment, Pain, Medications, Hospital Environment. Assistance [level of assistance required for transfers and ambulation]: Not OOB this shift Supervision [direct monitoring required during toileting and ADLs]: Total assistance with ADL's Surveillance [continuous indirect monitoring]: Lennoxo, Purposeful Rounding, Bedside Report Patient-specific fall prevention interventions for sensory deficits provided, if applicable: [X] Yes CPG GOAL OUTCOME EVALUATION: Goal: Individualization & Mutuality Outcome: Ongoing (Interventions Implemented as Appropriate) 09/05/17606 Individualization Patient Specific Preferences Able to answer yes/no questions Patient Specific Goals Rest, mobilize Goal: Fall Prevention-Safe Patient Handling Outcome: Ongoing (Interventions Implemented as Appropriate) 09/04/17 0853 09/04/172199 Restraint Interventions Safety Promotion/Fall Prevention -- activity supervised;muscle strengthening facilitated;fall prevention program maintained;safety round/check completed Activity Activity Type -- activity adjusted per tolerance Activity Assistance Provided assistance, 3 or more people -- Positioning Body Position -- supine, head elevated Daily Care Interventions Self-Care Promotion -- independence encouraged;BADL personal objects within reach;BADL personal routines maintained;safe use of adaptive equipment encouraged [place] Fall Risk History of Falling -- 0 Secondary Diagnosis -- 15 Ambulatory Aids -- 0 Intravenous Therapy/Heparin/Saline Lock -- 20 Gait/Transferring -- 20 Mental Status -- 15 Score -- 70 OTHER [place] Fall Risk -- High Goal: Infection Control Outcome: Ongoing (Interventions Implemented as Appropriate) 09/04/172199 Safety Interventions Isolation Precautions standard precautions maintained Infection Prevention barrier precautions utilized;rest/sleep promoted;single patient room provided Coping Strategies Supportive Measures active listening utilized;counseling provided;decision- making supported Goal: Interdisciplinary Rounds/Family Conf Outcome: Ongoing (Interventions Implemented as Appropriate) 09/05/17606 Interdisciplinary Rounds/Family Conf Participants nursing;patient;physician Problem: Skin Integrity Impairment, Risk/Actual (Adult) Goal: Identify Related Risk Factors and Signs and Symptoms Related risk factors and signs and symptoms are identified upon initiation of Human Response Clinical Practice Guideline (CPG) Outcome: Ongoing (Interventions Implemented as Appropriate) 09/05/17606 Skin Integrity Impairment, Risk/Actual Skin Integrity Impairment, Risk/Actual: Related Risk Factors cognitive impairment;traumatic injury Goal: Skin Integrity/Wound Healing Patient will demonstrate the desired outcomes by discharge/transition of care. Outcome: Ongoing (Interventions Implemented as Appropriate) 09/05/17606 Skin Integrity Impairment, Risk/Actual (Adult) Skin Integrity/Wound Healing making progress toward outcome Problem: Fracture Orthopaedic (Adult) Goal: Signs and Symptoms of Listed Potential Problems Will be Absent, Minimized or Managed (Fracture Orthopaedic) Signs and symptoms of listed potential problems will be absent, minimized or managed by discharge/transition of care (reference Fracture Orthopaedic (Adult) CPG). Outcome: Ongoing (Interventions Implemented as Appropriate) 09/05/17 0607 Fracture Orthopaedic Problems Assessed (Orthopaedic Fracture) all Problems Present (Orthopaedic Fracture) pain * Brief Op Note - Wilder Lua - 09/04/2017 12:45 PM EST Brief Operative Note Patient Name: Miguel Angel Mason : [id number] MR#: [id number] Case Date: 09/04/2017 Surgeon: Surgeon(s) and Role: * Amy Lance MD - Primary * Wilder Lua MD - Resident-Surgeon Erickson * Samson nAthony MD - Resident-Surgeon Erickson Preoperative diagnosis: Left acetabulum fracture Postoperative diagnosis: Left acetabulum fracture Procedure(s): @OPEN TREATMENT, ACETABULAR FX (WRVU 25.41) MODIFIER SMALL FRAGMENT SYNTHES MODIFIER PELVIC RECONSTRUCTION PLATE SYNTHES MODIFIER LARGE FRAGMENT SYSTEM SYNTHES Anesthesia: General Findings: Comminuted acetabular fracture. Complications: None Estimated Blood Loss: 1500 mL Specimens removed during surgery: None Fluids: 4.5L crystalloid, 2U PRBC Blood: 350 mL Urine Output: 100 mL Drains: 2 drains (left and right side) Disposition: awakened from anesthesia, extubated and taken to the recovery room in a stable condition, having suffered no apparent untoward event. Condition: doing well without problems (Please see the Surgical Encounter Summary for any Implant and Specimen details pertinent to this patient.) Infection Bundle used? N/A ANES IntraOp Crystalloid (Filter: (AN Fluids) Medications Shown) Medication Calculated Total No medications were administered. * Plan of Care - Denisse Rodriguez RN - 09/03/2017 11:24 PM EST Problem: Patient Care Overview Goal: Plan of Care Review Outcome: Ongoing (Interventions Implemented as Appropriate) 09/03/17 2121 Coping/Psychosocial Plan Of Care Reviewed With patient;caregiver OUTCOME EVALUATION NOTE: OUTCOME SUMMARY: Urine sample sent as ordered, nasal swab obtained as ordered and patient placed on droplet precautions. Md made aware of lactate of 3.7 from earlier draw for sepsis bundle, no new orders. NPO at midnight for OR . Flu swab later noted to be negative MD made aware droplet precautions discontinued. About midnight patient had episode of projectile vomiting, then was very rest full for the remainder of the night PLAN MOVING FORWARD: Assess safety, assess LLE mobility, INDIVIDUALIZED FALL PREVENTION INTERVENTIONS: Patient-specific fall risk factors per assessment: [current deficits]: coginitive deficits, impaired gait, impaired mobility Assistance [level of assistance required for transfers and ambulation]: Bedrest, 2 assist repositioning Supervision [direct monitoring required during toileting and ADLs]: Direct supervision Surveillance [continuous indirect monitoring]: audrey Marcano Patient-specific fall prevention interventions for sensory deficits provided, if applicable: NA CPG GOAL OUTCOME EVALUATION: * Consult Note - Guerrero Bah MD - 09/03/2017 10:07 AM EST Images from the original note were not included. Endocrinology Consult Note Name: Miguel Angel Mason Date: 09/03/17 Room: ED19/ED19 Reason for Consult: patient with panhypopituitarism, now admitted with acetabular pelvic fractureafter having a seizure, also with hypoxia and tachycardia. ??please help manage panhypopit in setting of current physiologic stressors. 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 Per chart review he was in a large transport care with other people when he had a seizure. He apparently stiffened, no tonic-clonic movement. He may have jammed his right lower extremities against the chair in front of him. Because he was in acute distress he was brought to the ED of [facility]. CT showed an acute left acetabular fracture and osteopenia, he was given morphine, dilaudid and ativan for pain and sedation and was transferred here. Na at [facility] 132. VS here, tachycardic up to 146 bpm, normal temperature, normal blood pressure, a little tachypnea 38, saturating O 2 90- 96%. Patient was started on stress dose steroids 50 mg Q8H, desmopressin 0.05 mg 3 times a day, levothyroxine 150 mcg daily. Patient is non verbal therefore called his sister. Per sister, Miguel Angel was diagnosed with hypopituitarism in 2004 (s/p removal of pituitary gland in [facility]), secondary to surgery. He has been on thyroid replacement 150 mcg daily, DDAVP 0.05 mg three times a day, maintenance hydrocortisone 20 mg morning, 10 mg noon and 10 mg 7 pm and androgel 1% 3 pumps daily. He has been on these doses for a couple of years. He patient lives at nursing home and she sees him quite often however she has been working nights shehas called to him frequently. Review of Systems - he has not been complaining of any symptoms No past medical history on file. No past surgical history on file. No family history on file. Current Medications: Scheduled Meds: ??? desmopressin 0.05 mg Oral TID ??? acetaminophen 1,000 mg Oral Q8H ??? levothyroxine 150 mcg Oral QAM ??? melatonin 3 mg Oral Nightly ??? pantoprazole 40 mg Oral QAM AC ??? QUEtiapine 250 mg Oral Nightly ??? traZODone 50 mg Oral Nightly ??? zonisamide 100 mg Oral Nightly ??? sodium chloride 0.9 % 5 mL Intravenous BID ??? hydrocortisone 50 mg Intravenous Q8H Continuous Infusions: PRN Meds:.ondansetron, polyethylene glycol (MIRALAX)oral powder, senna-docusate, calcium carbonate,sodium chloride 0.9 %, lidocaine, naphazoline-pheniramine, HYDROmorphone Allergies Allergen Reactions ??? Lopid [Gemfibrozil] Physical Exam: BP 142/75 Pulse (!) 125 Temp 37.3 ??C (99.1 ??F) (Oral) Resp 24 SpO2 90% General appearance - alert, well appearing, and in no distress Nose - normal and patent, no erythema, discharge or polyps Neck - supple, no significant adenopathy Chest - clear to auscultation, no wheezes, rales or rhonchi, symmetric air entry, no gynecomastia or galactorrhea Heart - normal rate, regular rhythm, normal S1, S2, no murmurs, rubs, clicks or gallops Abdomen - soft, nontender, nondistended, no masses or organomegaly No thick purple stretch tabares Neurological - following commands, alert and oriented to place and person Extremities - peripheral pulses normal, no pedal edema, no clubbing or cyanosis Skin - normal male pattern distribution, terminal hair in chest, abdomen, and normal pubic hair Labs: Results for MIGUEL ANGEL MASON ( ) as of 09/03/2017 15:14 Ref. Range 09/03/2017 06:22 Sodium Latest Ref Range: 135 - 145 mmol/L 136 Potassium Latest Ref Range: 3.5 - 5.0 mmol/L 4.2 Chloride Latest Ref Range: 98 - 107 mmol/L 99 CO2 Latest Ref Range: 22 - 31 mmol/L 26 Anion Gap Latest Ref Range: 5 - 15 mmol/L 11 BUN Latest Ref Range: 10 - 20 mg/dL 10 Creatinine Latest Ref Range: 0.80 - 1.50 mg/dL 0.99 Estimated GFR Latest Ref Range: >=60 >60 Glucose Lvl Latest Ref Range: 65 - 199 mg/dL 95 Calcium Latest Ref Range: 8.5 - 10.5 mg/dL 8.8 Ref. Range 09/03/2017 06:22 Free T4 Latest Ref Range: 0.93 - 1.70 ng/dL 1.45 TSH Latest Ref Range: 0.27 - 4.20 mlU/ML 0.01 (L) Imaging: Chest x ray: IMPRESSION No acute cardiopulmonary pathology identified. 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 Patient has history of panhypopituitarism s/p transphenoidal surgery in 2004 with resulting adrenalinsufficiency, hypothyroidism, DI and hypogonadism. * For secondary adrenal insufficiency, patient was adequately started on stress dose steroids. *For hypothyroidism, patient is euthyroid on today's lab work, therefore continue prior to admission dosing levothyroxine 150 mcg daily. * For DI patient's Na is normal reference range. Would watch for DI or SIADH--> follow Na, urineoutput, urine osmolality and specific gravity and if any concern please let us now DI criteria: serum Na >145 plus UOP >125 mL/hr x 2 hours in a row, urine spec grav < 1.005, and serum Osm >287 with a simultaneous urine Osm of <200. Continue DDAVP 0.05 mg three times a day. Furthermore, there is no need to fluid restrict him. If we are given the appropriate dose of DDAVP, he candrink to thirst and that would not cause any sodium imbalance. For hypogonadism he uses androgel and we will checks levels to see if adequately replaced. Spoke with orthopedics and they are waiting on a CT but might be taking him to the OR tomorrow. More so I would continue stress dose steroids for now. Regarding his acetabular fracture, this happened with no major trauma therefore we wonder about brittle bones. We will do 25 vitamin D (ordered), check albumin for corrected calcium (ordered), and check testosterone (ordered). Certain risk factors that might be affecting bone health include glucocorticoids, vitamin D deficiency, or hypogonadism. We will further discuss need for bisphosphonates moving forward. Thank you for allowing us participate in the care of this patient. Patient was seen and discussed with Dr. Page. Guerrero Tillman MD Endocrinology, Diabetes and Metabolism Fellow Pager #[phone] 09/03/2017 Associated attestation - Genevieve Page MD - 09/03/2017 6:24 PM EST I saw this patient with Dr. Niles Tillman. I reviewed the santos portions of the history and physical exam, and reviewed pertinent lab data. I answered all patient questions. I was involved in all medical decision making and agree with this plan. GENEVIEVE PAGE MD Engagement Engineerintensive care specialist Section of Endocrinology [facility] [place] * Consult Note - David Phillips MD - 09/03/2017 9:10 AM EST Neurology Consult History and Physical Patient name: Miguel Angel Mason Date of : 1990 PCP: NAKIA Cifuentes CC: seizure HPI: Miguel Angel Mason is a 27 y.o. 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 The patient lives in a nursing home at baseline. He was a passanger in a car. His eyes started to roll in the back of his head, he extended all four extremities and increased his tone, clenched fists, he was not noted to have rythmic movements of the extremities, he was unresponsive during the event.The event lasted 30 seconds. Afterwards he was crying and was noted to be in pain. He was confused afterwards and was not able to follow commands, though he did seem to be aware of his surrondings. His sister thinks he was less cooperative due to the pain. He was confused for less than an hour afterwards. He did not have urinary or bowel incontnence, no tongue biting. He presented to [place] from where he was transferred here for surgery. He was given ativan to prevent further seizures as well as dilaudid for pain. The patient has a history of seizures. He last had a similar seizure 4 years ago. He is on zonisamide 100 mg at bedtime which he has been taking daily without issues. In the past he had more frequentseizures between [id number]. His sister is unsure of what types of seizures, she does not think he had GTC in the past. He has no known history of status epilepticus. He has had imaging in the past, EEG but his sister is unsure of the results. He has a neurologist in [place], [place]. At his baseline state, he has very limited repetitive speech, but his auditory comprehension is intact and he is able to answer questions appropirately. He hs complete cortical blindness. He was ableto walk independently, he is strong throughout. He is able to feed himself with some help. He requires help with dressing, bathing, most ADL. He enjoys fishing and going for walks. He has not had infectious symptoms - fevers chills, cough, cold, congestion. He has been sleeping and eating well. No recent changes in his medical history. Current Medications: Scheduled Meds: ??? desmopressin 0.05 mg Oral TID ??? acetaminophen 1,000 mg Oral Q8H ??? levothyroxine 150 mcg Oral QAM ??? melatonin 3 mg Oral Nightly ??? pantoprazole 40 mg Oral QAM AC ??? QUEtiapine 250 mg Oral Nightly ??? traZODone 50 mg Oral Nightly ??? sodium chloride 0.9 % 5 mL Intravenous BID ??? hydrocortisone 50 mg Intravenous Q8H ??? zonisamide 400 mg Oral Once ??? zonisamide 200 mg Oral Nightly Continuous Infusions: PRN Meds:.ondansetron, polyethylene glycol (MIRALAX)oral powder, senna-docusate, calcium carbonate,sodium chloride 0.9 %, lidocaine, naphazoline-pheniramine, HYDROmorphone, HYDROmorphone Past Medical & Surgical History: No past medical history on file. No past surgical history on file. Home Medications: No current facility-administered medications on file prior to encounter. No current outpatient prescriptions on file prior to encounter. Allergy: Allergies Allergen Reactions ??? Lopid [Gemfibrozil] Family History: No family history on file. Social History: Smoking: never EtOH: no use Illicits: no use Living situation: lives in a nursing home, has people who help with most ADL Occupation: graduated from high school, has hobbies he enjoys Social History Social History ??? Marital status: Single Spouse name: N/A ??? Number of children: N/A ??? Years of education: N/A Occupational History ??? Not on file. Social History Main Topics ??? Smoking status: Never Smoker ??? Smokeless tobacco: Never Used ??? Alcohol use No ??? Drug use: No ??? Sexual activity: Not on file Other Topics Concern ??? Not on file Social History Narrative Lives at the [facility], moved in 11/07/2014. Review of systems: Constitutional: No fevers or chills Eyes: No vision changes, no diplopia, no blurry vision ENT: No rhinorrhea or pharyngitis, no meningismus CV: No chest pain or palpitations Resp: No cough, no shortness of breath GI: No nausea, vomiting, diarrhea or constipation : No dysuria, no incontinence Heme: No bleeding or bruising Endo: No polyuria or cold intolerance Neuro: See HPI Psych: No depression, normal sleep [x] Review of systems otherwise negative Physical Exam: Vitals: Temp: [36.3 ??C (97.3 ??F)-37.3 ??C (99.1 ??F)] Heart Rate: [115-138] Resp: [15-38] BP: (108-149)/(44-93) SpO2: [87 %-96 %] Heart Rate from SPO2: [116 bpm-138 bpm] Gen: Patient of apparent stated age, well nourished, well developed, uncomfortable, able to follow commands Ext: No edema. No bony deformity Neuro Exam: MS: Alert, moaning, uncomfortable, can answer yes or no, follow commands, repeat short sentences CN: PERRL, EOMI, blind in both eyes Facial sensation intact, no facial asymmetry Hearing intact grossly Palate elevates symmetrically, tongue protrudes midline SCM and trap strength intact Motor: Normal bulk and tone. Left arm pronator drift, did not assess left lower extremity given fracture UE: 5/5 R, 5/5 L Arm abduction at shoulder 5/5 R, 5/5 L Elbow extension 5/5 R, 5/5 L Elbow flexion 5/5 R, 5/5 L Mechanism Inspector LE: 5/5 R, UT L Hip flexion 5/5 R, UT L Knee extension 5/5 R, UT L Knee flexion 5/5 R, 5/5 L Foot dorsiflexion 5/5 R, 5/5 L Foot plantar flexion Sensation: Intact to light touch throughout Reflexes: DTRs 2+ R, 2+ L Biceps 2+ R, 2+ L Brachioradialis 2+ R, 2+ L Triceps 2+ R, UT L Patellar 2+ R, UT L Achilles tendon Toes - R down, L down Coordination: Finger to nose intact, no dysmetria Labs: Recent Results (from the past 24 hour(s)) Basic Metabolic Panel (non-fasting) Result Value Ref Range Glucose Lvl 84 65 - 199 mg/dL BUN 11 10 - 20 mg/dL Creatinine 0.97 0.80 - 1.50 mg/dL Sodium Not Perf 135 - 145 mmol/L Potassium Not Perf 3.5 - 5.0 mmol/L Chloride Not Perf 98 - 107 mmol/L CO2 Not Perf 22 - 31 mmol/L Anion Gap Not Perf 5 - 15 mmol/L Calcium Not Perf 8.5 - 10.5 Estimated GFR >60 >=60 Prothrombin Time Result Value Ref Range PT 13.6 11.8 - 14.0 sec INR 1.1 0.9 - 1.1 APTT Result Value Ref Range PTT 26 25 - 35 sec ABO/Rh Typing Result Value Ref Range ABORh Type O Pos Antibody screen Result Value Ref Range Ab Screen Interp Negative Expires at 2359 on: 09/06/2017 Hemogram Result Value Ref Range WBC 9.1 4.0 - 9.5 x10(3)/mcL RBC 5.52 4.58 - 5.54 x10(6)/mcL Hemoglobin 14.8 13.7 - 16.5 gm/dL Hematocrit 43.4 40.5 - 48.5 % MCV 78.6 (L) 82.9 - 93.1 fL MCH 26.8 (L) 27.5 - 32.1 pg MCHC 34.1 32.0 - 35.7 gm/dL Platelets 156 145 - 357 x10(3)/mcL RDWSD 41.1 36.0 - 45.0 fL RDWCV 14.8 (H) 11.4 - 13.8 % MPV 11.6 7.6 - 12.9 fL nRBC % Auto 0.0 % nRBC Abs Auto 0.000 0.000 - 0.000 x10(3)/mcL Differential, Automated Result Value Ref Range Neutrophils % 72.4 % Neutr Abs (ANC) 6.59 (H) 1.70 - 6.10 x10(3)/mcL Lymphocytes % 11.7 % Lymphocytes Abs 1.1 0.9 - 3.2 x10(3)/mcL Monocytes % 8.9 % Monocyte Abs 0.8 0.3 - 0.9 x10(3)/mcL Eosinophils % 5.3 % Eosinophils Abs 0.5 (H) 0.0 - 0.4 x10(3)/mcL Basophils % 0.6 % Basophils Abs 0.0 0.0 - 0.1 x10(3)/mcL Immature Gran % 1.10 % Maryellen Gran Abs 0.10 (H) 0.00 - 0.04 x10(3)/mcL ABORH Recheck Status Result Value Ref Range ABORH Recheck Order Order Placed ABORH Type Recheck Complete Basic Metabolic Panel (non-fasting) Result Value Ref Range Glucose Lvl 90 65 - 199 mg/dL BUN 10 10 - 20 mg/dL Creatinine 1.01 0.80 - 1.50 mg/dL Sodium 139 135 - 145 mmol/L Potassium 3.7 3.5 - 5.0 mmol/L Chloride 102 98 - 107 mmol/L CO2 25 22 - 31 mmol/L Anion Gap 12 5 - 15 mmol/L Calcium 8.1 (L) 8.5 - 10.5 mg/dL Estimated GFR >60 >=60 Basic Metabolic Panel (non-fasting) Result Value Ref Range Glucose Lvl 95 65 - 199 mg/dL BUN 10 10 - 20 mg/dL Creatinine 0.99 0.80 - 1.50 mg/dL Sodium 136 135 - 145 mmol/L Potassium 4.2 3.5 - 5.0 mmol/L Chloride 99 98 - 107 mmol/L CO2 26 22 - 31 mmol/L Anion Gap 11 5 - 15 mmol/L Calcium 8.8 8.5 - 10.5 mg/dL Estimated GFR >60 >=60 TSH Result Value Ref Range TSH 0.01 (L) 0.27 - 4.20 mlU/ML T4, free Result Value Ref Range Free T4 1.45 0.93 - 1.70 ng/dL Diagnostic Tests and Imaging: Head CT w/out: from 09/02 from OSH Images reviewed showed old right frontal infarct with associated encephalomalacia, posterior cyst Assessment and Plan: Miguel Angel Mason is a 27 y.o. 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 The patient has a history of a seizure disorder that was previously well controlled on zonisamide 100 mg nightly.He has not had a seizure in over 4 years prior to his event yesterday. He has been taking his symptoms tonight as prescribed. His caregivers deny other recent triggers such as sleep deprivation, stressors, infectious type symptoms. Given his breakthrough seizure at this time we would recommend a zonisamide load given the long half-life of this medication as well as increasing the standing dose. Ihave ordered a 400 mg zonisamide load, and increased the nightly dose to 200 mg. We would recommendworking up for possible causes of his breakthrough seizure with metabolic labs including BMP, LFTs,endocrine labs including TSH, cortisol, and infectious labs including CBC, urinalysis with reflex culture and flu swab. - Zonisamide level pending - 400 mg zonisamide load - Increase zonisamide to 200 mg nightly - Metabolic work up: BMP, LFT - Endocrine work up: cortisol, TSH cascade, - Infectious work up: CBC, UA with reflex culture, influenza testing Moisés Orr MD PGY-3 Neurology Pager [phone] Neurology Attending I saw and evaluated the patient with the neurology team. I have reviewed the resident's history during the visit and I agree with the details as written. My physical examination confirms the resident's findings. The assessment and plan were formulated in discussion with me at the time of the visit and I agree with them as documented. 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 Patient has had rare seizures in the past. At baseline is ambulatory and says a few words. He can feed himself and follows directions inconsistently. Now presents with seizure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 PM EST PHOSPHORUS Routine 09/06/2017 3:49 PM EST CALCIUM Routine 09/06/2017 3:49 PM EST SODIUM Routine 09/06/2017 12:31 PM EST ALBUMIN LEVEL Timed 09/06/2017 12:31 PM EST HEMOGRAM Routine 09/06/2017 8:33 AM EST SODIUM Routine 09/06/2017 8:33 AM EST PHOSPHORUS Routine 09/06/2017 8:33 AM EST CALCIUM Routine 09/06/2017 8:33 AM EST ALBUMIN LEVEL Timed 09/06/2017 8:33 AM EST BASIC METABOLIC PANEL Routine 09/06/2017 8:33 AM EST HEMOGRAM Routine 09/06/2017 4:31 AM EST DIFFERENTIAL, AUTOMATED Routine 09/06/2017 4:31 AM EST CBC (WITH DIFF) Routine 09/06/2017 4:31 AM EST SODIUM Routine 09/06/2017 4:31 AM EST PHOSPHORUS Routine 09/06/2017 4:31 AM EST CALCIUM Routine 09/06/2017 4:31 AM EST ALBUMIN LEVEL Timed 09/06/2017 4:31 AM EST BASIC METABOLIC PANEL Routine 09/06/2017 4:31 AM EST SODIUM Routine 09/05/2017 11:14 PM EST PHOSPHORUS Routine 09/05/2017 11:14 PM EST CALCIUM Routine 09/05/2017 11:14 PM EST ALBUMIN LEVEL Timed 09/05/2017 11:14 PM EST SODIUM Routine 09/05/2017 7:08 PM EST PHOSPHORUS Routine 09/05/2017 7:08 PM EST CALCIUM Routine 09/05/2017 7:08 PM EST ALBUMIN LEVEL Routine 09/05/2017 7:08 PM EST 1,25-DIHYDROXYCHOLECA LCIFEROL Routine 09/05/2017 4:54 PM EST ELECTROLYTES PANEL Timed 09/05/2017 3: 06 PM EST PTH Routine 09/05/2017 11:29 AM EST VITAMIN D, 25-HYDROXY Routine 09/05/2017 11:29 AM EST ELECTROLYTES PANEL Routine 09/05/2017 11 :29 AM EST PHOSPHORUS Routine 09/05/2017 4:16 AM EST HEMOGRAM Routine 09/05/2017 2:35 AM EST DIFFERENTIAL, AUTOMATED Routine 09/05/2017 2:35 AM EST CBC (WITH DIFF) Routine 09/05/2017 2:35 AM EST MAGNESIUM Routine 09/05/2017 2:35 AM EST BASIC METABOLIC PANEL Routine 09/05/2017 2:35 AM EST EKG 12-LEAD STAT 09/04/2017 10:30 PM EST Tachycardia ELECTROLYTES PANEL STAT 09/04/2017 7: 23 PM EST POCT GLUCOSE Routine 09/04/2017 7:00 PM EST HEMOGRAM STAT 09/04/2017 3:49 PM EST DIFFERENTIAL, AUTOMATED STAT 09/04/2017 3:49 PM EST HEMOGLOBIN AND HEMATOCRIT, BLOOD STAT 09/04/2017 3:49 PM EST CBC (WITH DIFF) STAT 09/04/2017 3:49 PM EST ELECTROLYTES PANEL STAT 09/04/2017 3: 49 PM EST XR PELVIS MIN 3 VIEWS Routine 09/04/2017 3:15 PM EST XR FLUORO NO RAD <1HR - OR USE Routine 09/04/2017 12:27 PM EST ABORH RECHECK STATUS STAT 09/04/2017 11:15 AM EST HEMOGRAM STAT 09/04/2017 11:15 AM EST DIFFERENTIAL, AUTOMATED STAT 09/04/2017 11:15 AM EST ABO/RH TYPING STAT 09/04/2017 11:15 AM EST CBC (WITH DIFF) STAT 09/04/2017 11:15 AM EST ANTIBODY SCREEN STAT 09/04/2017 11:15 AM EST TYPE AND SCREEN ([facility]) STAT 09/04/2017 11:15 AM EST PREPARE RBC STAT 09/04/2017 11:00 AM EST HEMOGRAM Routine 09/04/2017 3:58 AM EST DIFFERENTIAL, AUTOMATED Routine 09/04/2017 3:58 AM EST TESTOSTERONE, TOTAL AND FREE Routine 09/04/2017 3:58 AM EST CBC (WITH DIFF) Routine 09/04/2017 3:58 AM EST HEPATIC FUNCTION PANEL Routine 09/04/2017 3:58 AM EST BASIC METABOLIC PANEL Routine 09/04/2017 3:58 AM EST IMPLANTABLE DEVICES SCAN 09/04/2017 12:00 AM EST BURN NURSE SCAN 09/04/2017 12:00 AM EST URINALYSIS WITH REFLEX CULTURE Routine 09/03/2017 9:04 PM EST RAPID INFLUENZA A/B PCR ([facility]) STAT 09/03/2017 7:59 PM EST BLOOD CULTURE STAT 09/03/2017 6:47 PM EST LACTATE, WHOLE BLOOD STAT 09/03/2017 5:56 PM EST BLOOD CULTURE STAT 09/03/2017 5:[address] PELVIS MSK (BONES JOINTS MUSCLES) WO CONTRAST STAT 09/03/2017 4:52 PM EST ZONISAMIDE LEVEL Routine 09/03/2017 10:2 0 AM EST XR CHEST ONE VIEW Routine 09/03/2017 9:2 7 AM EST TSH Timed 09/03/2017 6:22 AM EST T4, FREE Timed 09/03/2017 6:22 AM EST BASIC METABOLIC PANEL Timed 09/03/2017 6:22 AM EST BASIC METABOLIC PANEL STAT 09/03/2017 1:54 AM EST ABORH RECHECK STATUS STAT 09/03/2017 12:54 AM EST HEMOGRAM STAT 09/03/2017 12:54 AM EST DIFFERENTIAL, AUTOMATED STAT 09/03/2017 12:54 AM EST ABO/RH TYPING STAT 09/03/2017 12:54 AM EST APTT STAT 09/03/2017 12:54 AM EST PROTHROMBIN TIME STAT 09/03/2017 12:5 4 AM EST CBC (WITH DIFF) STAT 09/03/2017 12:54 AM EST ANTIBODY SCREEN STAT 09/03/2017 12:54 AM EST TYPE AND SCREEN ([facility]) STAT 09/03/2017 12:54 AM EST BASIC METABOLIC PANEL STAT 09/03/2017 12:54 AM EST OPEN TREATMENT, ACETABULAR FX Routine 09/03/2017 12:34 AM EST XR KNEE AP & LAT LEFT STAT 09/02/2017 11:46 PM EST XR PELVIS MIN 3 VIEWS STAT 09/02/2017 11:46 PM EST XR KNEE AP & LAT LEFT STAT 09/02/2017 11:09 PM EST documented in this encounter Results * (ABNORMAL) Basic Metabolic Panel (non-fasting) (03/10/2018 1:48 PM EDT) Glucose 90 65 - 199 mg/dL [facility] Comment:Diabetes: >=200 mg/d L plus symptoms Blood Urea Nitrogen 11 10 - 20 mg/dL [facility] Creatinine 0.70(L) 0.80 - 1.50 mg/dL [facility] Sodium 138 135 - 145 mmol/L [facility] Potassium 3.9 3.5 - 5.0 mmol/L [facility] Comment: Please note: ??Patients with WBC >100,000 may have falsely elevated Potassium levels. ??For accurate Potassium quantification in these patients send serum separator tube (gold top) for subsequent determinations. ??Contact the Clinical Chemistry Laboratory if there are any questions. Chloride 100 98 - 107 mmol/L [facility] Carbon Dioxide 24 22 - 31 mmol/L [facility] Anion Gap 14 5 - 15 mmol/L [facility] Calcium 8.7 8.5 - 10.5 mg/dL [facility] Est Glomerular Filtration Rate 129 >=60 mL/min/1. 73 m?? [facility] Comment: The eGFR was calculated using the CKD-EPI equation. As with all creatinine based estimates of kidney function, eGFR values calculated with the CKD-EPI equation are not accurate in patients with acute kidney failure, extremes of body mass or the acutely ill. [email or web address] eGFR 150 >=60 mL/min/1. 73 m?? [facility] Comment: The eGFR was calculated using the CKD-EPI equation. As with all creatinine based estimates of kidney function, eGFR values calculated with the CKD-EPI equation are not accurate in patients with acute kidney failure, extremes of body mass or the acutely ill. [email or web address] Blood specimen (specimen) 03/10/2018 1:48 PM EDT 03/10/2018 2:05 PM EDT Narrative Resulting Agency Comment Spec In Lab Gabriella Maher MD CHEMISTRY ORDERABLES [facility] [place] [address] * (ABNORMAL) Basic Metabolic Panel (non-fasting) (03/09/2018 8:46 AM EDT) Glucose 97 65 - 199 mg/dL [facility] Comment:Diabetes: >=200 mg/d L plus symptoms Blood Urea Nitrogen 9(L) 10 - 20 mg/dL [facility] Creatinine 0.68(L) 0.80 - 1.50 mg/dL [facility] Sodium 133(L) 135 - 145 mmol/L [facility] Potassium 3.7 3.5 - 5.0 mmol/L [facility] Comment: Please note: ??Patients with WBC >100,000 may have falsely elevated Potassium levels. ??For accurate Potassium quantification in these patients send serum separator tube (gold top) for subsequent determinations. ??Contact the Clinical Chemistry Laboratory if there are any questions. Chloride 98 98 - 107 mmol/L [facility] Carbon Dioxide 22 22 - 31 mmol/L [facility] Anion Gap 13 5 - 15 mmol/L [facility] Calcium 9.0 8.5 - 10.5 mg/dL [facility] Est Glomerular Filtration Rate 131 >=60 mL/min/1. 73 m?? [facility] Comment: The eGFR was calculated using the CKD-EPI equation. As with all creatinine based estimates of kidney function, eGFR values calculated with the CKD-EPI equation are not accurate in patients with acute kidney failure, extremes of body mass or the acutely ill. [email or web address] eGFR 152 >=60 mL/min/1. 73 m?? [facility] Comment: The eGFR was calculated using the CKD-EPI equation. As with all creatinine based estimates of kidney function, eGFR values calculated with the CKD-EPI equation are not accurate in patients with acute kidney failure, extremes of body mass or the acutely ill. [email or web address] Blood specimen (specimen) 03/09/2018 8:46 AM EDT 03/09/2018 9:15 AM EDT Narrative Resulting Agency Comment Spec In Lab Gabriella Maher MD CHEMISTRY ORDERABLES [facility] [place] [address] * (ABNORMAL) Basic Metabolic Panel (non-fasting) (03/08/2018 6:19 AM EDT) Glucose 107 65 - 199 mg/dL [facility] Comment:Diabetes: >=200 mg/d L plus symptoms Blood Urea Nitrogen 16 10 - 20 mg/dL [facility] Creatinine 0.72(L) 0.80 - 1.50 mg/dL [facility] Sodium 133(L) 135 - 145 mmol/L [facility] Potassium 3.5 3.5 - 5.0 mmol/L [facility] Comment: Please note: ??Patients with WBC >100,000 may have falsely elevated Potassium levels. ??For accurate Potassium quantification in these patients send serum separator tube (gold top) for subsequent determinations. ??Contact the Clinical Chemistry Laboratory if there are any questions. Chloride 97(L) 98 - 107 mmol/L [facility] Carbon Dioxide 21(L) 22 - 31 mmol/L [facility] Anion Gap 15 5 - 15 mmol/L [facility] Calcium 9.0 8.5 - 10.5 mg/dL [facility] Est Glomerular Filtration Rate 128 >=60 mL/min/1. 73 m?? [facility] Comment: The eGFR was calculated using the CKD-EPI equation. As with all creatinine based estimates of kidney function, eGFR values calculated with the CKD-EPI equation are not accurate in patients with acute kidney failure, extremes of body mass or the acutely ill. [email or web address] [email or web address] eGFR 148 >=60 mL/min/1. 73 m?? [facility] Comment: The eGFR was calculated using the CKD-EPI equation. As with all creatinine based estimates of kidney function, eGFR values calculated with the CKD-EPI equation are not accurate in patients with acute kidney failure, extremes of body mass or the acutely ill. [email or web address] [email or web address] Blood specimen (specimen) 03/08/2018 6:19 AM EDT 03/08/2018 6:34 AM EDT Narrative Resulting Agency Comment Spec In Lab Gabriella Maher MD CHEMISTRY ORDERABLES [facility] [place] [address] * (ABNORMAL) Basic Metabolic Panel (non-fasting) (03/07/2018 5:23 PM EDT) Glucose 99 65 - 199 mg/dL [facility] Comment:Diabetes: >=200 mg/d L plus symptoms Blood Urea Nitrogen 15 10 - 20 mg/dL [facility] Creatinine 0.72(L) 0.80 - 1.50 mg/dL [facility] Sodium 135 135 - 145 mmol/L [facility] Comment:result rechecked-RG Potassium 3.5 3.5 - 5.0 mmol/L [facility] Comment: Please note: ??Patients with WBC >100,000 may have falsely elevated Potassium levels. ??For accurate Potassium quantification in these patients send serum separator tube (gold top) for subsequent determinations. ??Contact the Clinical Chemistry Laboratory if there are any questions. Chloride 98 98 - 107 mmol/L [facility] Carbon Dioxide 22 22 - 31 mmol/L [facility] Anion Gap 15 5 - 15 mmol/L [facility] Calcium 8.9 8.5 - 10.5 mg/dL [facility] Est Glomerular Filtration Rate 128 >=60 mL/min/1. 73 m?? [facility] Comment: The eGFR was calculated using the CKD-EPI equation. As with all creatinine based estimates of kidney function, eGFR values calculated with the CKD-EPI equation are not accurate in patients with acute kidney failure, extremes of body mass or the acutely ill. [email or web address] eGFR 148 >=60 mL/min/1. 73 m?? [facility] Comment: The eGFR was calculated using the CKD-EPI equation. As with all creatinine based estimates of kidney function, eGFR values calculated with the CKD-EPI equation are not accurate in patients with acute kidney failure, extremes of body mass or the acutely ill. [email or web address] Blood specimen (specimen) 03/07/2018 5:23 PM EDT 03/07/2018 5:29 PM EDT Narrative Resulting Agency Comment Spec In Lab Gabriella Maher MD CHEMISTRY ORDERABLES [facility] [place] [address] * Basic Metabolic Panel (non-fasting) (03/05/2018 2:19 PM EDT) Glucose 186 65 - 199 mg/dL [facility] Comment:Diabetes: >=200 mg/d L plus symptoms Blood Urea Nitrogen 14 10 - 20 mg/dL [facility] Creatinine 0.81 0.80 - 1.50 mg/dL [facility] Sodium 144 135 - 145 mmol/L [facility] Potassium 3.6 3.5 - 5.0 mmol/L [facility] Comment: Please note: ??Patients with WBC >100,000 may have falsely elevated Potassium levels. ??For accurate Potassium quantification in these patients send serum separator tube (gold top) for subsequent determinations. ??Contact the Clinical Chemistry Laboratory if there are any questions. Chloride 106 98 - 107 mmol/L [facility] Carbon Dioxide 24 22 - 31 mmol/L [facility] Anion Gap 14 5 - 15 mmol/L [facility] Calcium 9.1 8.5 - 10.5 mg/dL [facility] Est Glomerular Filtration Rate 122 >=60 mL/min/1. 73 m?? [facility] Comment: The eGFR was calculated using the CKD-EPI equation. As with all creatinine based estimates of kidney function, eGFR values calculated with the CKD-EPI equation are not accurate in patients with acute kidney failure, extremes of body mass or the acutely ill. [email or web address] eGFR 141 >=60 mL/min/1. 73 m?? [facility] Comment: The eGFR was calculated using the CKD-EPI equation. As with all creatinine based estimates of kidney function, eGFR values calculated with the CKD-EPI equation are not accurate in patients with acute kidney failure, extremes of body mass or the acutely ill. [email or web address] Blood specimen (specimen) 03/05/2018 2:19 PM EDT 03/05/2018 2:25 PM EDT Narrative Resulting Agency Comment Spec In Lab Reba Linton MD CHEMISTRY ORDERA BLES [facility] [place] [address] * (ABNORMAL) Basic Metabolic Panel (non-fasting) (03/04/2018 7:53 AM EDT) Glucose 92 65 - 199 mg/dL [facility] Comment:Diabetes: >=200 mg/d L plus symptoms Blood Urea Nitrogen 15 10 - 20 mg/dL [facility] Creatinine 0.75(L) 0.80 - 1.50 mg/dL [facility] Sodium 148(H) 135 - 145 mmol/L [facility] Potassium 3.5 3.5 - 5.0 mmol/L [facility] Comment: Please note: ??Patients with WBC >100,000 may have falsely elevated Potassium levels. ??For accurate Potassium quantification in these patients send serum separator tube (gold top) for subsequent determinations. ??Contact the Clinical Chemistry Laboratory if there are any questions. Chloride 109(H) 98 - 107 mmol/L [facility] Carbon Dioxide 25 22 - 31 mmol/L [facility] Anion Gap 14 5 - 15 mmol/L [facility] Calcium 9.8 8.5 - 10.5 mg/dL [facility] Est Glomerular Filtration Rate 126 >=60 mL/min/1. 73 m?? [facility] Comment: The eGFR was calculated using the CKD-EPI equation. As with all creatinine based estimates of kidney function, eGFR values calculated with the CKD-EPI equation are not accurate in patients with acute kidney failure, extremes of body mass or the acutely ill. [email or web address] eGFR 146 >=60 mL/min/1. 73 m?? [facility] Comment: The eGFR was calculated using the CKD-EPI equation. As with all creatinine based estimates of kidney function, eGFR values calculated with the CKD-EPI equation are not accurate in patients with acute kidney failure, extremes of body mass or the acutely ill. [email or web address] Blood specimen (specimen) 03/04/2018 7:53 AM EDT 03/04/2018 8:03 AM EDT Narrative Resulting Agency Comment Spec In Lab Reba Linton MD CHEMISTRY ORDERA BLES [facility] [place] [phone] * (ABNORMAL) Basic Metabolic Panel (non-fasting) (03/03/2018 12:47 PM EDT) Glucose 260(H) 65 - 199 mg/dL [facility] Comment:Diabetes: >=200 mg/d L plus symptoms Blood Urea Nitrogen 14 10 - 20 mg/dL [facility] Creatinine 0.81 0.80 - 1.50 mg/dL [facility] Sodium 150(H) 135 - 145 mmol/L [facility] Potassium 4.3 3.5 - 5.0 mmol/L [facility] Comment: Please note: ??Patients with WBC >100,000 may have falsely elevated Potassium levels. ??For accurate Potassium quantification in these patients send serum separator tube (gold top) for subsequent determinations. ??Contact the Clinical Chemistry Laboratory if there are any questions. Chloride 114(H) 98 - 107 mmol/L [facility] Carbon Dioxide 22 22 - 31 mmol/L [facility] Anion Gap 14 5 - 15 mmol/L [facility] Calcium 9.6 8.5 - 10.5 mg/dL [facility] Est Glomerular Filtration Rate 122 >=60 mL/min/1. 73 m?? [facility] Comment: The eGFR was calculated using the CKD-EPI equation. As with all creatinine based estimates of kidney function, eGFR values calculated with the CKD-EPI equation are not accurate in patients with acute kidney failure, extremes of body mass or the acutely ill. [email or web address] eGFR 141 >=60 mL/min/1. 73 m?? [facility] Comment: The eGFR was calculated using the CKD-EPI equation. As with all creatinine based estimates of kidney function, eGFR values calculated with the CKD-EPI equation are not accurate in patients with acute kidney failure, extremes of body mass or the acutely ill. [email or web address] Blood specimen (specimen) 03/03/2018 12:47 PM EDT 03/03/2018 1:16 PM EDT Narrative Resulting Agency Comment Spec In Lab Reba Linton MD CHEMISTRY ORDERA BLES [facility] [place] [phone] * ECHO COMPLETE (03/02/2018 1:08 PM EDT) EF 65 HEARTLAB SYSTEM Anatomical Region Laterality Modality Other 03/02/2018 Narrative 03/02/2018 1:32 PM EDT Procedure: ?Transthoracic Echocardiogram Patient: ?ISABELLA Kim ?(Age): 1990(27y) Med Rec#: ? [id number] ?Sex: ?M ? Site Loc: ? [facility] ?Ht / Wt: ??177(cm)/99(kg) Pt. Loc: ?Adult Floor ? BSA: ?2.16 Study Date: ?? 03/02/2018 ?Pt. Type: Inpatient Tape: ? Referring: Reba Linton Referring: HONORIO Reading: Drew Driscoll ([id number]) Calibration Engineer: Noel Ash Diagnosis: *Abnormal electrocardiogram [ECG] [EKG] (R94.31) Rhythm: ? Sinus BP: ? 114/65 HR: ? 95 SUMMARY: 1. The left ventricular chamber size is normal. Left ventricular wall thickness is normal. There is normal global left ventricular systolic function. ??Ejection fraction is estimated to be 65%. There are no left ventricular segmental wall motion abnormalities. There are no left ventricular segmental wall motion abnormalities. Doppler assessment is consistent with normal left sided filling pressure. 2. The right ventricle is probably normal in size. Right ventricular global systolic function is probably normal. Pulmonary artery hypertension could not be assessed due to inadequate tricuspid regurgitation jet. 3. The atria are not well visualized. 4. There is no hemodynamically significant valvular disease. 5. See report below for remainder of findings. Findings ? : Left Ventricle: ? The left ventricular chamber size is normal. ?Left ventricular wall thickness is normal. ?No ventricular septal defect is visualized. ?There is normal global left ventricular systolic function. ??Ejection fraction is estimated to be 65%. ?There are no left ventricular segmental wall motion abnormalities. ?Doppler assessment is consistent with normal left sided filling pressure. Left Atrium: ? The left atrium is not well visualized. ?The left atrium is probably normal in size. Right Ventricle: ? The right ventricle is probably normal in size. ?Right ventricular global systolic function is probably normal. ?Pulmonary artery hypertension could not be assessed due to inadequate tricuspid regurgitation jet. Right Atrium: ? The right atrium is not well visualized. Aortic Valve: ? The aortic valve is probably tricuspid. ?Systolic excursion of the aortic valve is normal. ?There is no evidence of aortic regurgitation. Mitral Valve: ? The mitral valve leaflets appear normal. ?There is trace mitral regurgitation present. Tricuspid Valve: ? The tricuspid valve leaflets are morphologically normal. ?There is trace tricuspid regurgitation present. Pulmonic Valve: ? The pulmonic valve appears normal in structure and function. Pericardium: ? The pericardium appears normal and there is no evidence of a pericardial effusion. Aorta: ? The aortic root is normal in size. ?The ascending aorta is normal in size. Pulmonary Artery: ? The main pulmonary artery appears normal. Venous: ? The inferior vena cava is poorly visualized. Misc: ? There is no hemodynamically significant valve disease. ?Two-dimensional echo, spectral Doppler and color Doppler performed. Chambers 2D ?Value ?Units (Range) ? IVSd (2D) ? 1.1 ?cm ? LVPWd (2D) ?0.9 ?cm ? IVS:LVPW ratio (2D) 1.2 ?ratio ? RWT (2D) ?0.5 ?ratio ? RWT PW (2D) ? 0.4 ?ratio ? LVIDd (2D) ?4.4 ?cm ? LVIDs (2D) ?3.1 ?cm ? LVIDd (2D) index ?2 ?cm/m2 ? LVIDs (2D) index ?1.4 ?cm/m2 ? LV FS (2D) ?30 ? % ? EF Teichholz (2D) ?? 57 ? % ? Ao root diameter (2D3.3 ?cm (2.1 - 3.6) ? Ascending Ao ?2.4 ?cm (2 - 3.5) ? Volumes/Mass ?Value ?Units (Range) ? LV mass (2D) ?151.4 ?g ? LV mass (2D) index ??70.1 ? g/m2 ? Diastolic/Systolic Function ?Value ?Units (Range) ? MV E-wave Vmax ?0.7 ?m/sec ? MV deceleration rsie820.6 ?msec ? MV A-wave Vmax ?0.5 ?m/sec ? MV E:A ratio ?1.3 ?ratio ? LV septal e' Vmax ?? 0.1 ?m/sec ? LV lateral e' Vmax ??0.1 ?m/sec ? LV average e' Vmax ??0.1 ?m/sec ? LV E:e' septal ratio11.2 ? ratio ? LV E:e' lateral rati5.6 ?ratio ? LV average E:e' rati7.5 ?ratio ? Tricuspid Valve ?Value ?Units (Range) ? TR Vmax ? 2.1 ?m/sec ? TR peak gradient ?17.1 ? mmHg ? RVSP ?17 ? mmHg ? Wall Motion: Segment Name ?Rest ? Base-Anteroseptal ?? Normal ? Base-Anterior ? Normal ? Base-Anterolateral ??Normal ? Base-Posterolateral Normal ? Base-Inferior ? Normal ? Base-Inferoseptal ?? Normal ? Mid-Anteroseptal ?Normal ? Mid-Anterior ?Normal ? Mid-Anterolateral ?? Normal ? Mid-Posterolateral ??Normal ? Mid-Inferior ?Normal ? Mid-Inferoseptal ?Normal ? [place]-Septal ? Normal ? [place]-Anterior ? Normal ? [place]-Lateral ?Normal ? [place]-Inferior ? Normal ? [place]-Tip ?Normal ? This report has been electronically signed by: Drew Driscoll MD ? 03/02/2018 13:32:27 Images reviewed and interpretation verified [facility] Procedure Note Drew Driscoll MD - 03/02/2018 Procedure: Transthoracic Echocardiogram Patient: ISABELLA Kim DOB(Age): 1990(27y) Med Rec#: [id number] Sex: M Site Loc: [facility] Ht / Wt: 177(cm)/99(kg) Pt. Loc: Adult Floor BSA: 2.16 Study Date: 03/02/2018 Pt. Type: Inpatient Tape: Referring: Reba Linton Referring: HONORIO Reading: Drew Driscoll ([id number]) Calibration Engineer: Noel Ash Diagnosis: *Abnormal electrocardiogram [ECG] [EKG] (R94.31) Rhythm: Sinus BP: 114/65 HR: 95 SUMMARY: 1. The left ventricular chamber size is normal. Left ventricular wall thickness is normal. There is normal global left ventricular systolic function. Ejection fraction is estimated to be 65%. There are no left ventricular segmental wall motion abnormalities. There are no left ventricular segmental wall motion abnormalities. Doppler assessment is consistent with normal left sided filling pressure. 2. The right ventricle is probably normal in size. Right ventricular global systolic function is probably normal. Pulmonary artery hypertension could not be assessed due to inadequate tricuspid regurgitation jet. 3. The atria are not well visualized. 4. There is no hemodynamically significant valvular disease. 5. See report below for remainder of findings. Findings : Left Ventricle: The left ventricular chamber size is normal. Left ventricular wall thickness is normal. No ventricular septal defect is visualized. There is normal global left ventricular systolic function. Ejection fraction is estimated to be 65%. There are no left ventricular segmental wall motion abnormalities. Doppler assessment is consistent with normal left sided filling pressure. Left Atrium: The left atrium is not well visualized. The left atrium is probably normal in size. Right Ventricle: The right ventricle is probably normal in size. Right ventricular global systolic function is probably normal. Pulmonary artery hypertension could not be assessed due to inadequate tricuspid regurgitation jet. Right Atrium: The right atrium is not well visualized. Aortic Valve: The aortic valve is probably tricuspid. Systolic excursion of the aortic valve is normal. There is no evidence of aortic regurgitation. Mitral Valve: The mitral valve leaflets appear normal. There is trace mitral regurgitation present. Tricuspid Valve: The tricuspid valve leaflets are morphologically normal. There is trace tricuspid regurgitation present. Pulmonic Valve: The pulmonic valve appears normal in structure and function. Pericardium: The pericardium appears normal and there is no evidence of a pericardial effusion. Aorta: The aortic root is normal in size. The ascending aorta is normal in size. Pulmonary Artery: The main pulmonary artery appears normal. Venous: The inferior vena cava is poorly visualized. Misc: There is no hemodynamically significant valve disease. Two-dimensional echo, spectral Doppler and color Doppler performed. Chambers 2D Value Units (Range) IVSd (2D) 1.1 cm LVPWd (2D) 0.9 cm IVS:LVPW ratio (2D) 1.2 ratio RWT (2D) 0.5 ratio RWT PW (2D) 0.4 ratio LVIDd (2D) 4.4 cm LVIDs (2D) 3.1 cm LVIDd (2D) index 2 cm/m2 LVIDs (2D) index 1.4 cm/m2 LV FS (2D) 30 % EF Teichholz (2D) 57 % Ao root diameter (2D3.3 cm (2.1 - 3.6) Ascending Ao 2.4 cm (2 - 3.5) Volumes/Mass Value Units (Range) LV mass (2D) 151.4 g LV mass (2D) index 70.1 g/m2 Diastolic/Systolic Function Value Units (Range) MV E-wave Vmax 0.7 m/sec MV deceleration gzfz473.6 msec MV A-wave Vmax 0.5 m/sec MV E:A ratio 1.3 ratio LV septal e' Vmax 0.1 m/sec LV lateral e' Vmax 0.1 m/sec LV average e' Vmax 0.1 m/sec LV E:e' septal ratio11.2 ratio LV E:e' lateral rati5.6 ratio LV average E:e' rati7.5 ratio Tricuspid Valve Value Units (Range) TR Vmax 2.1 m/sec TR peak gradient 17.1 mmHg RVSP 17 mmHg Wall Motion: Segment Name Rest Base-Anteroseptal Normal Base-Anterior Normal Base-Anterolateral Normal Base-Posterolateral Normal Base-Inferior Normal Base-Inferoseptal Normal Mid-Anteroseptal Normal Mid-Anterior Normal Mid-Anterolateral Normal Mid-Posterolateral Normal Mid-Inferior Normal Mid-Inferoseptal Normal [place]-Septal Normal [place]-Anterior Normal [place]-Lateral Normal [place]-Inferior Normal [place]-Tip Normal This report has been electronically signed by: Drew Driscoll MD 03/02/2018 13:32:27 Images reviewed and interpretation verified [facility] Reba Linton MD ECHO ORDERABLES * (ABNORMAL) Basic Metabolic Panel (non-fasting) (03/02/2018 6:26 AM EDT) Glucose 102 65 - 199 mg/dL [facility] Comment:Diabetes: >=200 mg/d L plus symptoms Blood Urea Nitrogen 17 10 - 20 mg/dL [facility] Creatinine 0.64(L) 0.80 - 1.50 mg/dL [facility] Comment:Specimen ultracentri fuged due to gross lipemia Sodium 145 135 - 145 mmol/L [facility] Potassium 3.5 3.5 - 5.0 mmol/L [facility] Comment: Please note: ??Patients with WBC >100,000 may have falsely elevated Potassium levels. ??For accurate Potassium quantification in these patients send serum separator tube (gold top) for subsequent determinations. ??Contact the Clinical Chemistry Laboratory if there are any questions. Chloride 109(H) 98 - 107 mmol/L [facility] Carbon Dioxide 23 22 - 31 mmol/L [facility] Anion Gap 13 5 - 15 mmol/L [facility] Calcium 9.5 8.5 - 10.5 mg/dL [facility] Est Glomerular Filtration Rate 134 >=60 mL/min/1. 73 m?? [facility] Comment: The eGFR was calculated using the CKD-EPI equation. As with all creatinine based estimates of kidney function, eGFR values calculated with the CKD-EPI equation are not accurate in patients with acute kidney failure, extremes of body mass or the acutely ill. [email or web address] eGFR 156 >=60 mL/min/1. 73 m?? [facility] Comment: The eGFR was calculated using the CKD-EPI equation. As with all creatinine based estimates of kidney function, eGFR values calculated with the CKD-EPI equation are not accurate in patients with acute kidney failure, extremes of body mass or the acutely ill. [email or web address] Blood specimen (specimen) 03/02/2018 6:26 AM EDT 03/02/2018 6:42 AM EDT Narrative Resulting Agency Comment Spec In Lab Reba Linton MD CHEMISTRY ORDERA BLES [facility] [place] [address] * Cardiac Enzymes (LEB/CGP) (03/02/2018 6:26 AM EDT) Troponin-T <0.01 0.00 - 0.00 ng/mL [facility] Comment: The 99th percentile for Troponin T is less than 0.01 ng/mL, any detectable cTnT concentration using this assay should be considered elevated. According to the third universal definition of myocardial infarction the following criteria with a clinical presentation consistent with acute myocardial ischemia meets the diagnosis for a myocardial infarction (VT). Detection of a rise and/or fall of cTnT, with at least one value greater than the 99th percentile (> or = 0.01) and with at least one of the following ?? Symptoms of ischemia ?? New or presumed new significant MI-qxculhu-K wave (ST-T) changes or new left bundle branch block (LBBB) ?? Development of pathologic Q waves in the ECG ?? Imaging evidence of new loss of viable myocardium or new regional wall motion abnormality ?? Identification of an intracoronary thrombus by angiography or autopsy Samples for cTnT testing should be obtained serially upon first assessment and again 3 to 6 hours later. If the clinical suspicion is high and previous samples have been negative an additional sample may be indicated. Reference: Third [place] Definition of Myocardial Infarction. Journal of the [place] [employer] 2012;60:1581-98 Creatine Kinase 45 0 - 200 unit/L [facility] Blood specimen (specimen) 03/02/2018 6:26 AM EDT 03/02/2018 6:41 AM EDT Narrative Resulting Agency Comment Spec In Lab Reba Linton MD CHEMISTRY ORDERA BLES Performing Organization Address [facility] Co de Phone Number [facility] [place] [address] * EKG 12 Lead (03/01/2018 9:20 AM EDT) Ventricular rate 98 BPM MUSE SYSTEM Atrial Rate 98 BPM MUSE SYSTEM P-R Interval 146 ms MUSE SYSTEM QRS Duration 102 ms MUSE SYSTEM Q-T Interval 350 ms MUSE SYSTEM QTC Calculated (Bezet) 446 ms MUSE SYSTEM Calculated P [place] 26 degrees MUSE SYSTEM Calculated R [place] 62 degrees MUSE SYSTEM Calculated T [place] 40 degrees MUSE SYSTEM INTERPRETATION Normal sinus rhythm T wave abnormality, consider lateral ischemia Abnormal ECG When compared with ECG of 28-FEB-2018 11:26, No significant change was found Confirmed by MD Ng Kevin ([id number]) on 03/01/2018 11:01:50 AM MUSE SYSTEM 03/01/2018 9:20 AM EDT 03/01/2018 11:01 AM EDT Reba Linton MD ECG ORDERABLES Performing Organization Address [facility] Co de Phone Number MUSE SYSTEM * LDL Cholesterol, Direct (03/01/2018 8:35 AM EDT) LDL Cholesterol, Direct 31 mg/dL [facility] Comment: Lowest Risk: <100 mg/dL Lower Risk: 100-129 mg/dL Borderline High Risk: 130-159 mg/dL High Risk: 160-189 mg/dL Very High Risk: >oq=029 mg/dL Blood specimen (specimen) 03/01/2018 8:35 AM EDT 03/01/2018 8:48 AM EDT Narrative Resulting Agency Comment Spec In Lab Reba Linton MD CHEMISTRY ORDERA BLES [facility] [place] [address] * Differential, Automated (03/01/2018 8:35 AM EDT) Neutrophil % 39.2 % [facility] Neutrophil Absolute 2.12 1.70 - 6.10 x10(3)/[facility] Lymph % 45.9 % [facility] Lymphocytes Abs 2.5 0.9 - 3.2 x10(3)/[facility] Monocyte % 10.3 % [facility] Monocyte Abs 0.6 0.3 - 0.9 x10(3)/[facility] Eos % 3.3 % [facility] Eosinophils Abs 0.2 0.0 - 0.4 x10(3)/[facility] Basophil % 0.7 % [facility] Baso Absolute 0.0 0.0 - 0.1 x10(3)/[facility] Immature Gran % 0.60 % [facility] Comment: Immature granulocytes(IG's)percentage and absolute count will include metamyelocytes, myelocytes, and promyelocytes. Blood smears from CBCs yielding IG's will be scanned manually for concordance. If this scan disagrees with the automated IG or if promyelocytes are noted, a manual differential will be performed. Immature Gran Absolute 0.03 0.00 - 0.04 x10(3)/[facility] Blood specimen (specimen) 03/01/2018 8:35 AM EDT 03/01/2018 8:43 AM EDT Narrative Resulting Agency Comment Spec In Lab Reba Linton MD HEMATOLOGY ORDER [id number] [facility] [place] [address] * (ABNORMAL) Hemogram (03/01/2018 8:35 AM EDT) White Blood Cell 5.4 4.0 - 9.5 x10(3)/mc L [facility] Red Blood Cell 4.89 4.58 - 5.54 x10(6)/mc L [facility] Hemoglobin 11.9(L) 13.7 - 16.5 gm/dL [facility] Hematocrit 36.7(L) 40.5 - 48.5 % [facility] Mean Cell Volume 75.1(L) 82.9 - 93.1 fL [facility] Mean Cell Hemoglobin 24.3(L) 27.5 - 32.1 pg [facility] Mean Cell Hemoglobin Concentration 32.4 32.0 - 35.7 gm/dL [facility] Platelet 272 145 - 357 x10(3)/mc L [facility] RDW Standard Deviation 47.2(H) 36.0 - 45.0 [facility]ORY RDW coefficient of variation 17.6(H) 11.4 - 13.8 % [facility] Mean Platelet Volume 10.5 7.6 - 12.9 [facility] LAB[facility]ATORY NRBC% auto 0.0 % [facility] NRBC Absolute 0.000 0.000 - 0.000 x10(3)/ L [facility] Blood specimen (specimen) 03/01/2018 8:35 AM EDT 03/01/2018 8:43 AM EDT Narrative Resulting Agency Comment Spec In Lab Reba Linton MD HEMATOLOGY ORDER LYNDSEY [facility] [place] [address] * Lipid Panel (03/01/2018 8:35 AM EDT) Cholesterol, Total 273 mg/dL [facility] Comment: Lower Risk: <200 mg/dL Average Risk: 200-239 mg/dL Higher Risk: >oe=815 mg/dL Triglyceride 2,210 mg/dL [facility] Comment: Average Risk/Lower Risk: <150 mg/dL Borderline High Risk: 150-199 mg/dL High Risk: 200-499 mg/dL Very High Risk: >ob=305 mg/dL HDL Cholesterol 13 mg/dL [facility] Comment: Males: ?? Higher Risk: <40 mg/dL Females: ?? HIgher Risk: <50 mg/dL LDL Cholesterol Not Calculated [facility] Comment: Lowest Risk: <100 mg/dL Lower Risk: 100-129 mg/dL Borderline High Risk: 130-159 mg/dL High Risk: 160-189 mg/dL Very High Risk: >lu=365 mg/dL Since a calculated LDL value is not valid for triglycerides greater than 400 mg/dl, a direct LDL determination is performed instead. Lowest Risk: <100 mg/dL Lower Risk: 100-129 mg/dL Borderline High Risk: 130-159 mg/dL High Risk: 160-189 mg/dL Very High Risk: >se=043 mg/dL Corrected from -182 mg/dL [NA] on 03/01/18 09:31 by Lili Reilly. Cholesterol/HDL Ratio 21.0 ratio [facility] Lipid Interpretation See Note [facility] Comment: Lipid management should be guided by a patient? s ASCVD risk, goals and preferences. ACC/AHA Guidelines recommend high intensity statin if clinical ASCVD or LDL greater than or equal to 190 mg/dL. [email or web address] Adults aged 40-75 with LDL 70-189 mg/dL should have their 10 year ASCVD risk estimated with the ACC/AHA ASCVD risk estimator binding http://tools.acc.org/VMYWC-Mxke-Mwgqihyqj/ Statin should be discussed if risk greater than or equal to 7.5% in non-diabetics. With diabetes, moderate intensity statin is recommended if risk less than 7.5%, high intensity if risk greater than or equal to 7.5%. Annual lipid monitoring on statins is not necessary. Evaluate secondary causes of Triglycerides greater than 500 mg/dL or LDL greater than 190 mg/dL: See table 6 of ACC/AHA Guideline. Lifestyle modification is a critical component of ASCVD risk reduction. Blood specimen (specimen) 03/01/2018 8:35 AM EDT 03/01/2018 8:43 AM EDT Narrative Resulting Agency Comment Spec In Lab Reba Linton MD CHEMISTRY ORDERA BLES [facility] [place] [address] * (ABNORMAL) Basic Metabolic Panel (non-fasting) (03/01/2018 8:35 AM EDT) Glucose 109 65 - 199 mg/dL [facility] Comment:Diabetes: >=200 mg/d L plus symptoms Blood Urea Nitrogen 22(H) 10 - 20 mg/dL [facility] Creatinine 0.96 0.80 - 1.50 mg/dL [facility] Comment:Specimen ultracentri fuged due to gross lipemia Sodium 148(H) 135 - 145 mmol/L [facility] Comment:Specimen ultracentri fuged due to gross lipemia Potassium Not Perf 3.5 - 5.0 [facility] Comment: Unable to quantitate due to sample hemolysis. ??Sample redraw suggested. ??Called to Suzi 03/01/18 09:21. mkf Please note: ??Patients with WBC >100,000 may have falsely elevated Potassium levels. ??For accurate Potassium quantification in these patients send serum separator tube (gold top) for subsequent determinations. ??Contact the Clinical Chemistry Laboratory if there are any questions. Chloride 107 98 - 107 mmol/L [facility] Carbon Dioxide 26 22 - 31 mmol/L [facility] Anion Gap 15 5 - 15 mmol/L [facility] Calcium 9.5 8.5 - 10.5 mg/dL [facility] Est Glomerular Filtration Rate 108 >=60 mL/min/1. 73 m?? [facility] Comment: The eGFR was calculated using the CKD-EPI equation. As with all creatinine based estimates of kidney function, eGFR values calculated with the CKD-EPI equation are not accurate in patients with acute kidney failure, extremes of body mass or the acutely ill. [email or web address]/[facility] TULSAnkf eGFR 125 >=60 mL/min/1. 73 m?? [facility] Comment: The eGFR was calculated using the CKD-EPI equation. As with all creatinine based estimates of kidney function, eGFR values calculated with the CKD-EPI equation are not accurate in patients with acute kidney failure, extremes of body mass or the acutely ill. [email or web address]/[facility] TULSAnkf Blood specimen (specimen) 03/01/2018 8:35 AM EDT 03/01/2018 8:42 AM EDT Narrative Resulting Agency Comment Spec In Lab Reba Linton MD CHEMISTRY ORDERA BLES Performing Organization Address [facility]/ZIP Co de Phone Number [facility] [place] [address] * Blood culture (03/01/2018 8:35 AM EDT) Blood Culture No growth at 5 days. [facility] Blood specimen (specimen) 03/01/2018 8:35 AM EDT 03/01/2018 9:34 AM EDT Narrative Resulting Agency Comment Spec In Lab Reba Linton MD MICROBIOLOGY - B LOOD ORDERABLES Performing Organization Address [facility] Co de Phone Number [facility] [place] [address] * Potassium (02/28/2018 4:20 PM EDT) Potassium 4.1 3.5 - 5.0 mmol/L [facility] Comment: Specimen ultracentrifuged due to gross lipemia Please note: ??Patients with WBC >100,000 may have falsely elevated Potassium levels. ??For accurate Potassium quantification in these patients send serum separator tube (gold top) for subsequent determinations. ??Contact the Clinical Chemistry Laboratory if there are any questions. Blood specimen (specimen) Venous Draw / Unknown 02/28/2018 4:20 PM EDT 02/28/2018 4:45 PM EDT Narrative Resulting Agency Comment Spec In Lab Reba Linton MD CHEMISTRY ORDERA BLES [facility] [place] [address] * Lavender Tube HOLD (02/28/2018 4:20 PM EDT) Pathologist [facility] Lavender Hold Sample in lab. [facility] Blood specimen (specimen) Venous Draw / Unknown 02/28/2018 4:20 PM EDT 02/28/2018 4:33 PM EDT Reba Linton MD HEMATOLOGY ORDER LYNDSEY Performing Organization Address [facility]/ZIP Co de Phone Number [facility] [place] [address] * Blood culture (02/28/2018 4:20 PM EDT) Pathologist [facility] Blood Culture No growth at 5 days. [facility] Blood specimen (specimen) 02/28/2018 4:20 PM EDT 02/28/2018 5:06 PM EDT Narrative Resulting Agency Comment Spec In Lab Reba Lintno MD MICROBIOLOGY - B LOOD ORDERABLES Performing Organization Address [facility] Co de Phone Number [facility] [place] [address] * (ABNORMAL) Basic Metabolic Panel (non-fasting) (02/28/2018 4:20 PM EDT) Glucose 129 65 - 199 mg/dL [facility] Comment:Diabetes: >=200 mg/d L plus symptoms Blood Urea Nitrogen 15 10 - 20 mg/dL [facility] Creatinine 1.02 0.80 - 1.50 mg/dL [facility] Comment:Specimen ultracentri fuged due to gross lipemia Sodium 147(H) 135 - 145 mmol/L [facility] Comment:Specimen ultracentri fuged due to gross lipemia Potassium Not Perf 3.5 - 5.0 [facility] Comment: Unable to quantitate due to sample hemolysis. ??Sample redraw suggested. called to sarika gomez 02/28/18 17:16 Please note: ??Patients with WBC >100,000 may have falsely elevated Potassium levels. ??For accurate Potassium quantification in these patients send serum separator tube (gold top) for subsequent determinations. ??Contact the Clinical Chemistry Laboratory if there are any questions. Chloride 109(H) 98 - 107 mmol/L [facility] Comment:Specimen ultracentri fuged due to gross lipemia Carbon Dioxide 21(L) 22 - 31 mmol/L [facility] Anion Gap 17(H) 5 - 15 mmol/L [facility] Calcium 9.3 8.5 - 10.5 mg/dL [facility] Est Glomerular Filtration Rate 100 >=60 mL/min/1. 73 m?? [facility] Comment: The eGFR was calculated using the CKD-EPI equation. As with all creatinine based estimates of kidney function, eGFR values calculated with the CKD-EPI equation are not accurate in patients with acute kidney failure, extremes of body mass or the acutely ill. http://[email or web address]/[facility]ULSAnkf eGFR 116 >=60 mL/min/1. 73 m?? [facility] Comment: The eGFR was calculated using the CKD-EPI equation. As with all creatinine based estimates of kidney function, eGFR values calculated with the CKD-EPI equation are not accurate in patients with acute kidney failure, extremes of body mass or the acutely ill. [email or web address] Blood specimen (specimen) 02/28/2018 4:20 PM EDT 02/28/2018 4:32 PM EDT Narrative Resulting Agency Comment Spec In Lab Reba Linton MD CHEMISTRY ORDERA BLES Performing Organization Address [facility]/ZIP Co de Phone Number [facility] [place] [address] * Cardiac Enzymes (LEB/CGP) (02/28/2018 4:20 PM EDT) Troponin-T <0.01 0.00 - 0.00 ng/mL [facility] Comment: The 99th percentile for Troponin T is less than 0.01 ng/mL, any detectable cTnT concentration using this assay should be considered elevated. According to the third universal definition of myocardial infarction the following criteria with a clinical presentation consistent with acute myocardial ischemia meets the diagnosis for a myocardial infarction (VT). Detection of a rise and/or fall of cTnT, with at least one value greater than the 99th percentile (> or = 0.01) and with at least one of the following ?? Symptoms of ischemia ?? New or presumed new significant WZ-[id number]-E wave (ST-T) changes or new left bundle branch block (LBBB) ?? Development of pathologic Q waves in the ECG ?? Imaging evidence of new loss of viable myocardium or new regional wall motion abnormality ?? Identification of an intracoronary thrombus by angiography or autopsy Samples for cTnT testing should be obtained serially upon first assessment and again 3 to 6 hours later. If the clinical suspicion is high and previous samples have been negative an additional sample may be indicated. Reference: Third [place] Definition of Myocardial Infarction. Journal of the [place] [employer] 2012;60:1581-98 Creatine Kinase 69 0 - 200 unit/L [facility] Blood specimen (specimen) 02/28/2018 4:20 PM EDT 02/28/2018 4:32 PM EDT Narrative Resulting Agency Comment Spec In Lab Reba Linton MD CHEMISTRY ORDERA BLES Performing Organization Address City/[facility]/ZIP Co de Phone Number [facility] [place] [address] * (ABNORMAL) Urine culture (02/28/2018 3:53 PM EDT) Urine Culture 10,000-49,000 cfu/ml Citrobacter koseri (Citrobacter diversus)(A) [facility] Organism Citrobacter koseri (Citrobacter diversus)(A) [facility] Urine specimen obtained by clean catch procedure (specimen) 02/28/2018 3:53 PM EDT 02/28/2018 5:05 PM EDT Narrative Resulting Agency Comment Spec In Lab Organism Antibiotic Method Susceptibility Citrobacter koseri Amikacin MICROSCAN METHOD Sensitive Citrobacter koseri Ampicillin MICROSCAN METHOD Resistant Citrobacter koseri Ampicillin + Sulbactam MICROSCAN ME THOD Sensitive Citrobacter koseri Aztreonam MICROSCAN METHOD Sensitive Citrobacter koseri Cefazolin MICROSCAN METHOD Sensitive Citrobacter koseri Cefepime MICROSCAN METHOD <=4: Sensitive Citrobacter koseri Ceftazidime MICROSCAN METHOD <=1: Sensitive Citrobacter koseri Ceftriaxone MICROSCAN METHOD Sensitive Comment: This organism carries inducible Beta-lactamase. ??Monotherapy with Ceftriaxone or Ceftazidime is not advised. Citrobacter koseri Cefuroxime MICROSCAN METHOD Sensitive Citrobacter koseri Ciprofloxacin MICROSCAN METHOD Sensitive Citrobacter koseri Gentamicin MICROSCAN METHOD Sensitive Citrobacter koseri Levofloxacin MICROSCAN METHOD Sensitive Citrobacter koseri Meropenem MICROSCAN METHOD <=1: Sensitive Citrobacter koseri Nitrofurantoin MICROSCAN METHOD Intermediate Citrobacter koseri Piperacillin/Tazobactam MICROSCAN M ETHOD <=16: Sensitive Citrobacter koseri Tetracycline MICROSCAN METHOD Sensitive Citrobacter koseri Tobramycin MICROSCAN METHOD Sensitive Citrobacter koseri Trimethoprim/Sulfa MICROSCAN METHOD Sensitive Reba Linton MD MICROBIOLOGY - G ENERAL ORDERABLES [facility] [place] [address] * (ABNORMAL) Urinalysis Microscopic Exam (02/28/2018 3:53 PM EDT) RBC, Urine 2 0 - 3 /HPF [facility] WBC, Urine 24(H) 0 - 3 /HPF [facility] Squamous Epithelial Cells Raw Data, Urine <1 <=4 /HPF [facility] Urine specimen obtained by clean catch procedure (specimen) 02/28/2018 3:53 PM EDT 02/28/2018 4:09 PM EDT Narrative Resulting Agency Comment Spec In Lab Reba Linton MD URINE ORDERABLES Performing Organization Address [facility] Co de Phone Number [facility] [place] [address] * Urine Hold (02/28/2018 3:53 PM EDT) Hold, Urine Sample in lab. [facility] Urine specimen (specimen) Urine / Unknown 02/28/2018 3:53 PM EDT 02/28/2018 4:09 PM EDT Reba Linton MD URINE ORDERABLES Performing Organization Address [facility] Co de Phone Number [facility] [place] [address] * (ABNORMAL) Urinalysis with reflex Culture (02/28/2018 3:53 PM EDT) Glucose, Urine Dipstick Negative Negative mg/dL [facility] Protein, Urine Dipstick Negative Negative mg/dL [facility] Bilirubin, Urine Dipstick Negative Negative mg/dL [facility] Comment: Clinical correlation required for positive Urine Bilirubin results as false positive may occur with some drugs and drug related products. If a false positive is suspected a serum total bilirubin should be considered if clinically indicated. Urobilinogen, Urine Dipstick Normal Normal mg/dL [facility] pH, Urn (dipstick) 6.0 5.0 - 8.0 [facility] Blood, Urine Dipstick Negative Negative mg/dL [facility] Ketone, Urine Dipstick Negative Negative mg/dL [facility] Nitrite, Urine Dipstick Negative Negative [facility] Leukocytes, Urine Dipstick Small(A) Negative [facility] Appearance, Urine Dipstick Clear Clear [facility] Specific [place] Urine Automated 1.013 1.002 - 1.030 [facility] Color, Urine Dipstick Yellow Yellow [facility] Reflex to Culture Yes [facility] Urine specimen obtained by clean catch procedure (specimen) 02/28/2018 3:53 PM EDT 02/28/2018 4:09 PM EDT Narrative Resulting Agency Comment Spec In Lab Reba Linton MD URINE ORDERABLES Performing Organization Address City/[facility]/ZIP Co de Phone Number [facility] [place] [address] * EKG 12 Lead (02/28/2018 11:26 AM EDT) Ventricular rate 112 BPM MUSE SYSTEM Atrial Rate 112 BPM MUSE SYSTEM P-R Interval 138 ms MUSE SYSTEM QRS Duration 84 ms MUSE SYSTEM Q-T Interval 326 ms MUSE SYSTEM QTC Calculated (Bezet) 444 ms MUSE SYSTEM Calculated P [place] 15 degrees MUSE SYSTEM Calculated R [place] 56 degrees MUSE SYSTEM Calculated T [place] 43 degrees MUSE SYSTEM INTERPRETATION Sinus tachycardia Nonspecific T wave abnormality Abnormal ECG When compared with ECG of 28-FEB-2018 05:43, (unconfirmed) Non-specific change in ST segment in Anterior leads Nonspecific T wave abnormality has replaced inverted T waves in Inferior leads Confirmed by MD Gene, Constantino Jacobs ([id number]) on 02/28/2018 3:58:07 PM MUSE SYSTEM 02/28/2018 11:2 6 AM EDT 02/28/2018 3:58 PM EDT Reba Linton MD ECG ORDERABLES MUSE SYSTEM * Cardiac Enzymes (LEB/CGP) (02/28/2018 9:26 AM EDT) Troponin-T Not Perf 0.00 - 0.00 [facility] Comment: Unable to quantitate due to sample hemolysis. ??Sample redraw suggested. Called by: loyda, Read back by: noel urbano, Date/Time:02/28/18 10:14. The 99th percentile for Troponin T is less than 0.01 ng/mL, any detectable cTnT concentration using this assay should be considered elevated. According to the third universal definition of myocardial infarction the following criteria with a clinical presentation consistent with acute myocardial ischemia meets the diagnosis for a myocardial infarction (VT). Detection of a rise and/or fall of cTnT, with at least one value greater than the 99th percentile (> or = 0.01) and with at least one of the following ?? Symptoms of ischemia ?? New or presumed new significant CL-pcwcsqf-D wave (ST-T) changes or new left bundle branch block (LBBB) ?? Development of pathologic Q waves in the ECG ?? Imaging evidence of new loss of viable myocardium or new regional wall motion abnormality ?? Identification of an intracoronary thrombus by angiography or autopsy Samples for cTnT testing should be obtained serially upon first assessment and again 3 to 6 hours later. If the clinical suspicion is high and previous samples have been negative an additional sample may be indicated. Reference: Third [place] Definition of Myocardial Infarction. Journal of the [place] [employer] 2012;60:1581-98 Creatine Kinase Not Perf 0 - 200 [facility] Comment: Unable to quantitate due to sample hemolysis. ??Sample redraw suggested. Called by: loyda, Read back by: noel urbano, Date/Time:02/28/18 10:14. Blood specimen (specimen) Venous Draw / Unknown 02/28/2018 9:26 AM EDT 02/28/2018 9:32 AM EDT Narrative Resulting Agency Comment Spec In Lab Reba Linton MD CHEMISTRY ORDERA BLES [facility] [place] [address] * (ABNORMAL) Basic Metabolic Panel (non-fasting) (02/28/2018 9:26 AM EDT) Glucose 208(H) 65 - 199 mg/dL [facility] Comment: Specimen ultracentrifuged due to gross lipemia Diabetes: >=200 mg/dL plus symptoms Blood Urea Nitrogen 13 10 - 20 mg/dL [facility] Comment:Specimen ultracentri fuged due to gross lipemia Creatinine 0.89 0.80 - 1.50 mg/dL [facility] Comment:Specimen ultracentri fuged due to gross lipemia Sodium 150(H) 135 - 145 mmol/L [facility] Comment:Specimen ultracentri fuged due to gross lipemia Potassium Not Perf 3.5 - 5.0 [facility] Comment: Unable to quantitate due to sample hemolysis. ??Sample redraw suggested. Called by: loyda, Read back by: noel urbano, Date/Time:02/28/18 10:14. Please note: ??Patients with WBC >100,000 may have falsely elevated Potassium levels. ??For accurate Potassium quantification in these patients send serum separator tube (gold top) for subsequent determinations. ??Contact the Clinical Chemistry Laboratory if there are any questions. Chloride 112(H) 98 - 107 mmol/L [facility] Comment:Specimen ultracentri fuged due to gross lipemia Carbon Dioxide 23 22 - 31 mmol/L [facility] Comment:Specimen ultracentri fuged due to gross lipemia Anion Gap 15 5 - 15 mmol/L [facility] Calcium 9.7 8.5 - 10.5 mg/dL [facility] Comment:Specimen ultracentri fuged due to gross lipemia Est Glomerular Filtration Rate 117 >=60 mL/min/1. 73 m?? [facility] Comment: The eGFR was calculated using the CKD-EPI equation. As with all creatinine based estimates of kidney function, eGFR values calculated with the CKD-EPI equation are not accurate in patients with acute kidney failure, extremes of body mass or the acutely ill. [email or web address] eGFR 136 >=60 mL/min/1. 73 m?? [facility] Comment: The eGFR was calculated using the CKD-EPI equation. As with all creatinine based estimates of kidney function, eGFR values calculated with the CKD-EPI equation are not accurate in patients with acute kidney failure, extremes of body mass or the acutely ill. [email or web address] Blood specimen (specimen) 02/28/2018 9:26 AM EDT 02/28/2018 9:32 AM EDT Narrative Resulting Agency Comment Spec In Lab Reba Linton MD CHEMISTRY ORDERA BLES Performing Organization Address [facility]/ZIP Co de Phone Number [facility] [place] [address] * EKG 12 Lead (02/28/2018 5:43 AM EDT) Ventricular rate 127 BPM MUSE SYSTEM Atrial Rate 127 BPM MUSE SYSTEM P-R Interval 136 ms MUSE SYSTEM QRS Duration 94 ms MUSE SYSTEM Q-T Interval 316 ms MUSE SYSTEM QTC Calculated (Bezet) 459 ms MUSE SYSTEM Calculated P [place] 41 degrees MUSE SYSTEM Calculated R [place] 72 degrees MUSE SYSTEM Calculated T [place] 40 degrees MUSE SYSTEM INTERPRETATION Sinus tachycardia ST & T wave abnormality, consider anterolateral ischemia T wave abnormality, consider inferior ischemia Abnormal ECG When compared with ECG of 05-DEC-2017 17:29, Non-specific change in ST segment in Anterior leads T wave inversion now evident in Inferior leads Nonspecific T wave abnormality now evident in Anterior leads Confirmed by MD Gene, Constantino Jacobs ([id number]) on 02/28/2018 3:57:48 PM MUSE SYSTEM 02/28/2018 5:43 AM EDT 02/28/2018 3:57 PM EDT Brenda Greco APRN ECG ORDERABLES Performing Organization Address [facility] Hospital/[facility]/ZIP Co de Phone Number MUSE SYSTEM * Potassium (02/27/2018 5:58 AM EDT) Potassium 4.3 3.5 - 5.0 mmol/L [facility] Comment: Please note: ??Patients with WBC >100,000 may have falsely elevated Potassium levels. ??For accurate Potassium quantification in these patients send serum separator tube (gold top) for subsequent determinations. ??Contact the Clinical Chemistry Laboratory if there are any questions. Blood specimen (specimen) 02/27/2018 5:58 AM EDT 02/27/2018 6:04 AM EDT Narrative Resulting Agency Comment Spec In Lab Abimbola Goldstein MD CHEMISTRY ORDERABLES [facility] [place] [address] * (ABNORMAL) Basic Metabolic Panel (non-fasting) (02/27/2018 4:14 AM EDT) Glucose 244(H) 65 - 199 mg/dL [facility] Comment: result rechecked-[facility] Diabetes: >=200 mg/dL plus symptoms Blood Urea Nitrogen 12 10 - 20 mg/dL [facility] Creatinine 0.63(L) 0.80 - 1.50 mg/dL [facility] Sodium 146(H) 135 - 145 mmol/L [facility] Potassium Not Perf 3.5 - 5.0 [facility] Comment: Specimen hemolyzed. Called by: [facility], Read back by: Emerald Rasheed, Date/Time:02/27/18 05:43. Please note: ??Patients with WBC >100,000 may have falsely elevated Potassium levels. ??For accurate Potassium quantification in these patients send serum separator tube (gold top) for subsequent determinations. ??Contact the Clinical Chemistry Laboratory if there are any questions. Chloride 111(H) 98 - 107 mmol/L [facility] Carbon Dioxide 23 22 - 31 mmol/L [facility] Anion Gap 12 5 - 15 mmol/L [facility] Calcium 9.7 8.5 - 10.5 mg/dL [facility] Est Glomerular Filtration Rate 135 >=60 mL/min/1. 73 m?? [facility] Comment: The eGFR was calculated using the CKD-EPI equation. As with all creatinine based estimates of kidney function, eGFR values calculated with the CKD-EPI equation are not accurate in patients with acute kidney failure, extremes of body mass or the acutely ill. [email or web address] eGFR 157 >=60 mL/min/1. 73 m?? [facility] Comment: The eGFR was calculated using the CKD-EPI equation. As with all creatinine based estimates of kidney function, eGFR values calculated with the CKD-EPI equation are not accurate in patients with acute kidney failure, extremes of body mass or the acutely ill. [email or web address] Blood specimen (specimen) 02/27/2018 4:14 AM EDT 02/27/2018 4:55 AM EDT Narrative Resulting Agency Comment Spec In Lab Abimbola Goldstein MD CHEMISTRY ORDERABLES [facility] [place] [address] * (ABNORMAL) Basic Metabolic Panel (non-fasting) (02/24/2018 5:25 AM EDT) Glucose 89 65 - 199 mg/dL [facility] Comment:Diabetes: >=200 mg/d L plus symptoms Blood Urea Nitrogen 22(H) 10 - 20 mg/dL [facility] Creatinine 0.79(L) 0.80 - 1.50 mg/dL [facility] Sodium 146(H) 135 - 145 mmol/L [facility] Potassium 3.5 3.5 - 5.0 mmol/L [facility] Comment: Please note: ??Patients with WBC >100,000 may have falsely elevated Potassium levels. ??For accurate Potassium quantification in these patients send serum separator tube (gold top) for subsequent determinations. ??Contact the Clinical Chemistry Laboratory if there are any questions. Chloride 106 98 - 107 mmol/L [facility] Carbon Dioxide 27 22 - 31 mmol/L [facility] Anion Gap 13 5 - 15 mmol/L [facility] Calcium 9.7 8.5 - 10.5 mg/dL [facility] Est Glomerular Filtration Rate 123 >=60 mL/min/1. 73 m?? [facility] Comment: The eGFR was calculated using the CKD-EPI equation. As with all creatinine based estimates of kidney function, eGFR values calculated with the CKD-EPI equation are not accurate in patients with acute kidney failure, extremes of body mass or the acutely ill. [email or web address] eGFR 143 >=60 mL/min/1. 73 m?? [facility] Comment: The eGFR was calculated using the CKD-EPI equation. As with all creatinine based estimates of kidney function, eGFR values calculated with the CKD-EPI equation are not accurate in patients with acute kidney failure, extremes of body mass or the acutely ill. [email or web address] Blood specimen (specimen) 02/24/2018 5:25 AM EDT 02/24/2018 5:39 AM EDT Narrative Resulting Agency Comment Spec In Lab Abimbola Goldstein MD CHEMISTRY ORDERABLES [facility] [place] [address] * (ABNORMAL) Basic Metabolic Panel (non-fasting) (02/23/2018 9:10 AM EDT) Glucose 106 65 - 199 mg/dL [facility] Comment:Diabetes: >=200 mg/d L plus symptoms Blood Urea Nitrogen 19 10 - 20 mg/dL [facility] Creatinine 0.79(L) 0.80 - 1.50 mg/dL [facility] Sodium 150(H) 135 - 145 mmol/L [facility] Potassium 3.9 3.5 - 5.0 mmol/L [facility] Comment: Please note: ??Patients with WBC >100,000 may have falsely elevated Potassium levels. ??For accurate Potassium quantification in these patients send serum separator tube (gold top) for subsequent determinations. ??Contact the Clinical Chemistry Laboratory if there are any questions. Chloride 111(H) 98 - 107 mmol/L [facility] Carbon Dioxide 24 22 - 31 mmol/L [facility] Anion Gap 15 5 - 15 mmol/L [facility] Calcium 10.3 8.5 - 10.5 mg/dL [facility] Est Glomerular Filtration Rate 123 >=60 mL/min/1. 73 m?? [facility] Comment: The eGFR was calculated using the CKD-EPI equation. As with all creatinine based estimates of kidney function, eGFR values calculated with the CKD-EPI equation are not accurate in patients with acute kidney failure, extremes of body mass or the acutely ill. [email or web address] eGFR 143 >=60 mL/min/1. 73 m?? [facility] Comment: The eGFR was calculated using the CKD-EPI equation. As with all creatinine based estimates of kidney function, eGFR values calculated with the CKD-EPI equation are not accurate in patients with acute kidney failure, extremes of body mass or the acutely ill. [email or web address] Blood specimen (specimen) 02/23/2018 9:10 AM EDT 02/23/2018 9:19 AM EDT Narrative Resulting Agency Comment Spec In Lab Maldonado Salazar MD CHEMISTRY ORDERABLES [facility] [place] [address] * (ABNORMAL) Basic Metabolic Panel (non-fasting) (02/20/2018 5:38 AM EDT) Glucose 125 65 - 199 mg/dL [facility] Comment:Diabetes: >=200 mg/d L plus symptoms Blood Urea Nitrogen 15 10 - 20 mg/dL [facility] Creatinine 0.68(L) 0.80 - 1.50 mg/dL [facility] Sodium 142 135 - 145 mmol/L [facility] Potassium 3.4(L) 3.5 - 5.0 mmol/L [facility] Comment: Please note: ??Patients with WBC >100,000 may have falsely elevated Potassium levels. ??For accurate Potassium quantification in these patients send serum separator tube (gold top) for subsequent determinations. ??Contact the Clinical Chemistry Laboratory if there are any questions. Chloride 106 98 - 107 mmol/L [facility] Carbon Dioxide 24 22 - 31 mmol/L [facility] Anion Gap 12 5 - 15 mmol/L [facility] Calcium 9.7 8.5 - 10.5 mg/dL [facility] Est Glomerular Filtration Rate 131 >=60 mL/min/1. 73 m?? [facility] Comment: The eGFR was calculated using the CKD-EPI equation. As with all creatinine based estimates of kidney function, eGFR values calculated with the CKD-EPI equation are not accurate in patients with acute kidney failure, extremes of body mass or the acutely ill. [email or web address] eGFR 152 >=60 mL/min/1. 73 m?? [facility] Comment: The eGFR was calculated using the CKD-EPI equation. As with all creatinine based estimates of kidney function, eGFR values calculated with the CKD-EPI equation are not accurate in patients with acute kidney failure, extremes of body mass or the acutely ill. [email or web address] Blood specimen (specimen) 02/20/2018 5:38 AM EDT 02/20/2018 5:45 AM EDT Narrative Resulting Agency Comment Spec In Lab Maldonado Salazar MD CHEMISTRY ORDERABLES [facility] [place] [address] * (ABNORMAL) Basic Metabolic Panel (non-fasting) (02/17/2018 11:29 AM EDT) Glucose 82 65 - 199 mg/dL [facility] Comment:Diabetes: >=200 mg/d L plus symptoms Blood Urea Nitrogen 17 10 - 20 mg/dL [facility] Creatinine 0.78(L) 0.80 - 1.50 mg/dL [facility] Sodium 144 135 - 145 mmol/L [facility] Potassium 4.0 3.5 - 5.0 mmol/L [facility] Comment: Please note: ??Patients with WBC >100,000 may have falsely elevated Potassium levels. ??For accurate Potassium quantification in these patients send serum separator tube (gold top) for subsequent determinations. ??Contact the Clinical Chemistry Laboratory if there are any questions. Chloride 105 98 - 107 mmol/L [facility] Carbon Dioxide 20(L) 22 - 31 mmol/L [facility] Anion Gap 19(H) 5 - 15 mmol/L [facility] Calcium 9.7 8.5 - 10.5 mg/dL [facility] Est Glomerular Filtration Rate 124 >=60 mL/min/1. 73 m?? [facility] Comment: The eGFR was calculated using the CKD-EPI equation. As with all creatinine based estimates of kidney function, eGFR values calculated with the CKD-EPI equation are not accurate in patients with acute kidney failure, extremes of body mass or the acutely ill. [email or web address] eGFR 143 >=60 mL/min/1. 73 m?? [facility] Comment: The eGFR was calculated using the CKD-EPI equation. As with all creatinine based estimates of kidney function, eGFR values calculated with the CKD-EPI equation are not accurate in patients with acute kidney failure, extremes of body mass or the acutely ill. [email or web address] Blood specimen (specimen) 02/17/2018 11:29 AM EDT 02/17/2018 12:22 PM EDT Narrative Resulting Agency Comment Spec In Lab Maldonado Salazar MD CHEMISTRY ORDERABLES [facility] [place] [address] * Basic Metabolic Panel (non-fasting) (02/16/2018 1:55 PM EDT) Glucose 150 65 - 199 mg/dL [facility] Comment:Diabetes: >=200 mg/d L plus symptoms Blood Urea Nitrogen 20 10 - 20 mg/dL [facility] Creatinine 0.83 0.80 - 1.50 mg/dL [facility] Sodium 143 135 - 145 mmol/L [facility] Potassium 3.7 3.5 - 5.0 mmol/L [facility] Comment: Please note: ??Patients with WBC >100,000 may have falsely elevated Potassium levels. ??For accurate Potassium quantification in these patients send serum separator tube (gold top) for subsequent determinations. ??Contact the Clinical Chemistry Laboratory if there are any questions. Chloride 105 98 - 107 mmol/L [facility] Carbon Dioxide 24 22 - 31 mmol/L [facility] Anion Gap 14 5 - 15 mmol/L [facility] Calcium 9.3 8.5 - 10.5 mg/dL [facility] Est Glomerular Filtration Rate 121 >=60 mL/min/1. 73 m?? [facility] Comment: The eGFR was calculated using the CKD-EPI equation. As with all creatinine based estimates of kidney function, eGFR values calculated with the CKD-EPI equation are not accurate in patients with acute kidney failure, extremes of body mass or the acutely ill. [email or web address] eGFR 140 >=60 mL/min/1. 73 m?? [facility] Comment: The eGFR was calculated using the CKD-EPI equation. As with all creatinine based estimates of kidney function, eGFR values calculated with the CKD-EPI equation are not accurate in patients with acute kidney failure, extremes of body mass or the acutely ill. [email or web address] Blood specimen (specimen) 02/16/2018 1:55 PM EDT 02/16/2018 2:11 PM EDT Narrative Resulting Agency Comment Spec In Lab Maldonado Salazar MD CHEMISTRY ORDERABLES [facility] [place] [address] * (ABNORMAL) Basic Metabolic Panel (non-fasting) (02/15/2018 9:37 AM EDT) Glucose 90 65 - 199 mg/dL [facility] Comment:Diabetes: >=200 mg/d L plus symptoms Blood Urea Nitrogen 16 10 - 20 mg/dL [facility] Creatinine 0.88 0.80 - 1.50 mg/dL [facility] Sodium 150(H) 135 - 145 mmol/L [facility] Potassium 4.0 3.5 - 5.0 mmol/L [facility] Comment: Please note: ??Patients with WBC >100,000 may have falsely elevated Potassium levels. ??For accurate Potassium quantification in these patients send serum separator tube (gold top) for subsequent determinations. ??Contact the Clinical Chemistry Laboratory if there are any questions. Chloride 111(H) 98 - 107 mmol/L [facility] Carbon Dioxide 21(L) 22 - 31 mmol/L [facility] Anion Gap 18(H) 5 - 15 mmol/L [facility] Calcium 9.9 8.5 - 10.5 mg/dL [facility] Est Glomerular Filtration Rate 118 >=60 mL/min/1. 73 m?? [facility] Comment: The eGFR was calculated using the CKD-EPI equation. As with all creatinine based estimates of kidney function, eGFR values calculated with the CKD-EPI equation are not accurate in patients with acute kidney failure, extremes of body mass or the acutely ill. [email or web address] eGFR 136 >=60 mL/min/1. 73 m?? [facility] Comment: The eGFR was calculated using the CKD-EPI equation. As with all creatinine based estimates of kidney function, eGFR values calculated with the CKD-EPI equation are not accurate in patients with acute kidney failure, extremes of body mass or the acutely ill. [email or web address] Blood specimen (specimen) 02/15/2018 9:37 AM EDT 02/15/2018 10:01 AM EDT Narrative Resulting Agency Comment Spec In Lab Maldonado Salazar MD CHEMISTRY ORDERABLES [facility] [place] [address] * (ABNORMAL) Basic Metabolic Panel (non-fasting) (02/14/2018 11:38 AM EDT) Glucose 261(H) 65 - 199 mg/dL [facility] Comment:Diabetes: >=200 mg/d L plus symptoms Blood Urea Nitrogen 14 10 - 20 mg/dL [facility] Creatinine 0.89 0.80 - 1.50 mg/dL [facility] Sodium 150(H) 135 - 145 mmol/L [facility] Potassium 4.1 3.5 - 5.0 mmol/L [facility] Comment: Please note: ??Patients with WBC >100,000 may have falsely elevated Potassium levels. ??For accurate Potassium quantification in these patients send serum separator tube (gold top) for subsequent determinations. ??Contact the Clinical Chemistry Laboratory if there are any questions. Chloride 112(H) 98 - 107 mmol/L [facility] Carbon Dioxide 22 22 - 31 mmol/L [facility] Anion Gap 16(H) 5 - 15 mmol/L [facility] Calcium 9.8 8.5 - 10.5 mg/dL [facility] Est Glomerular Filtration Rate 117 >=60 mL/min/1. 73 m?? [facility] Comment: The eGFR was calculated using the CKD-EPI equation. As with all creatinine based estimates of kidney function, eGFR values calculated with the CKD-EPI equation are not accurate in patients with acute kidney failure, extremes of body mass or the acutely ill. [email or web address] eGFR 136 >=60 mL/min/1. 73 m?? [facility] Comment: The eGFR was calculated using the CKD-EPI equation. As with all creatinine based estimates of kidney function, eGFR values calculated with the CKD-EPI equation are not accurate in patients with acute kidney failure, extremes of body mass or the acutely ill. [email or web address] Blood specimen (specimen) 02/14/2018 11:38 AM EDT 02/14/2018 11:44 AM EDT Narrative Resulting Agency Comment Spec In Lab Maldonado Salazar MD CHEMISTRY ORDERABLES [facility] [place] [address] * (ABNORMAL) Basic Metabolic Panel (non-fasting) (02/14/2018 6:10 AM EDT) Glucose 159 65 - 199 mg/dL [facility] Comment:Diabetes: >=200 mg/d L plus symptoms Blood Urea Nitrogen 15 10 - 20 mg/dL [facility] Creatinine 0.62(L) 0.80 - 1.50 mg/dL [facility] Sodium 151(H) 135 - 145 mmol/L [facility] Potassium 3.8 3.5 - 5.0 mmol/L [facility] Comment: Please note: ??Patients with WBC >100,000 may have falsely elevated Potassium levels. ??For accurate Potassium quantification in these patients send serum separator tube (gold top) for subsequent determinations. ??Contact the Clinical Chemistry Laboratory if there are any questions. Chloride 112(H) 98 - 107 mmol/L [facility] Carbon Dioxide 24 22 - 31 mmol/L [facility] Anion Gap 15 5 - 15 mmol/L [facility] Calcium 10.0 8.5 - 10.5 mg/dL [facility] Est Glomerular Filtration Rate 136 >=60 mL/min/1. 73 m?? [facility] Comment: The eGFR was calculated using the CKD-EPI equation. As with all creatinine based estimates of kidney function, eGFR values calculated with the CKD-EPI equation are not accurate in patients with acute kidney failure, extremes of body mass or the acutely ill. [email or web address] eGFR 158 >=60 mL/min/1. 73 m?? [facility] Comment: The eGFR was calculated using the CKD-EPI equation. As with all creatinine based estimates of kidney function, eGFR values calculated with the CKD-EPI equation are not accurate in patients with acute kidney failure, extremes of body mass or the acutely ill. [email or web address] Blood specimen (specimen) 02/14/2018 6:10 AM EDT 02/14/2018 6:26 AM EDT Narrative Resulting Agency Comment Spec In Lab Christopher Stanley MD CHEMISTRY ORDERABL ES [facility] [place] [address] * (ABNORMAL) Basic Metabolic Panel (non-fasting) (02/11/2018 7:23 AM EDT) Glucose 91 65 - 199 mg/dL [facility] Comment:Diabetes: >=200 mg/d L plus symptoms Blood Urea Nitrogen 15 10 - 20 mg/dL [facility] Creatinine 0.64(L) 0.80 - 1.50 mg/dL [facility] Sodium 145 135 - 145 mmol/L [facility] Potassium 3.5 3.5 - 5.0 mmol/L [facility] Comment: Please note: ??Patients with WBC >100,000 may have falsely elevated Potassium levels. ??For accurate Potassium quantification in these patients send serum separator tube (gold top) for subsequent determinations. ??Contact the Clinical Chemistry Laboratory if there are any questions. Chloride 106 98 - 107 mmol/L [facility] Carbon Dioxide 23 22 - 31 mmol/L [facility] Anion Gap 16(H) 5 - 15 mmol/L [facility] Calcium 9.4 8.5 - 10.5 mg/dL [facility] Est Glomerular Filtration Rate 134 >=60 mL/min/1. 73 m?? [facility] Comment: The eGFR was calculated using the CKD-EPI equation. As with all creatinine based estimates of kidney function, eGFR values calculated with the CKD-EPI equation are not accurate in patients with acute kidney failure, extremes of body mass or the acutely ill. [email or web address] eGFR 156 >=60 mL/min/1. 73 m?? [facility] Comment: The eGFR was calculated using the CKD-EPI equation. As with all creatinine based estimates of kidney function, eGFR values calculated with the CKD-EPI equation are not accurate in patients with acute kidney failure, extremes of body mass or the acutely ill. [email or web address] Blood specimen (specimen) 02/11/2018 7:23 AM EDT 02/11/2018 7:30 AM EDT Narrative Resulting Agency Comment Spec In Lab Christopher Stanley MD CHEMISTRY ORDERABL ES [facility] [place] [address] * (ABNORMAL) Basic Metabolic Panel (non-fasting) (02/08/2018 5:53 AM EDT) Glucose 89 65 - 199 mg/dL [facility] Comment:Diabetes: >=200 mg/d L plus symptoms Blood Urea Nitrogen 17 10 - 20 mg/dL [facility] Creatinine 0.88 0.80 - 1.50 mg/dL [facility] Sodium 144 135 - 145 mmol/L [facility] Potassium 3.6 3.5 - 5.0 mmol/L [facility] Comment: Please note: ??Patients with WBC >100,000 may have falsely elevated Potassium levels. ??For accurate Potassium quantification in these patients send serum separator tube (gold top) for subsequent determinations. ??Contact the Clinical Chemistry Laboratory if there are any questions. Chloride 103 98 - 107 mmol/L [facility] Carbon Dioxide 24 22 - 31 mmol/L [facility] Anion Gap 17(H) 5 - 15 mmol/L [facility] Calcium 9.7 8.5 - 10.5 mg/dL [facility] Est Glomerular Filtration Rate 118 >=60 mL/min/1. 73 m?? [facility] Comment: The eGFR was calculated using the CKD-EPI equation. As with all creatinine based estimates of kidney function, eGFR values calculated with the CKD-EPI equation are not accurate in patients with acute kidney failure, extremes of body mass or the acutely ill. [email or web address] eGFR 136 >=60 mL/min/1. 73 m?? [facility] Comment: The eGFR was calculated using the CKD-EPI equation. As with all creatinine based estimates of kidney function, eGFR values calculated with the CKD-EPI equation are not accurate in patients with acute kidney failure, extremes of body mass or the acutely ill. [email or web address] Blood specimen (specimen) 02/08/2018 5:53 AM EDT 02/08/2018 6:41 AM EDT Narrative Resulting Agency Comment Spec In Lab Fran Gilliam MD CHEMISTRY ORDERABL ES Performing Organization Address [facility] Co de Phone Number [facility] [place] [address] * Lavender Tube HOLD (02/06/2018 11:17 AM EDT) Lavender Hold Sample in lab. [facility] Blood specimen (specimen) Venous Draw / Unknown 02/06/2018 11:17 AM EDT 02/06/2018 11:43 AM EDT Fran Gilliam MD HEMATOLOGY ORDERAB LES Performing Organization Address City/[facility]/ZIP Co de Phone Number [facility] [place] [address] * (ABNORMAL) Basic Metabolic Panel (non-fasting) (02/06/2018 11:17 AM EDT) Glucose 104 65 - 199 mg/dL [facility] Comment:Diabetes: >=200 mg/d L plus symptoms Blood Urea Nitrogen 15 10 - 20 mg/dL [facility] Creatinine 0.74(L) 0.80 - 1.50 mg/dL [facility] Sodium 143 135 - 145 mmol/L [facility] Potassium 3.9 3.5 - 5.0 mmol/L [facility] Comment: Please note: ??Patients with WBC >100,000 may have falsely elevated Potassium levels. ??For accurate Potassium quantification in these patients send serum separator tube (gold top) for subsequent determinations. ??Contact the Clinical Chemistry Laboratory if there are any questions. Chloride 102 98 - 107 mmol/L [facility] Carbon Dioxide 23 22 - 31 mmol/L [facility] Anion Gap 18(H) 5 - 15 mmol/L [facility] Calcium 9.6 8.5 - 10.5 mg/dL [facility] Est Glomerular Filtration Rate 126 >=60 mL/min/1. 73 m?? [facility] Comment: The eGFR was calculated using the CKD-EPI equation. As with all creatinine based estimates of kidney function, eGFR values calculated with the CKD-EPI equation are not accurate in patients with acute kidney failure, extremes of body mass or the acutely ill. [email or web address] eGFR 147 >=60 mL/min/1. 73 m?? [facility] Comment: The eGFR was calculated using the CKD-EPI equation. As with all creatinine based estimates of kidney function, eGFR values calculated with the CKD-EPI equation are not accurate in patients with acute kidney failure, extremes of body mass or the acutely ill. [email or web address] Blood specimen (specimen) 02/06/2018 11:17 AM EDT 02/06/2018 11:43 AM EDT Narrative Resulting Agency Comment Spec In Lab Fran Gilliam MD CHEMISTRY ORDERABL ES [facility] [place] [address] * (ABNORMAL) Basic Metabolic Panel (non-fasting) (02/04/2018 6:30 AM EDT) Glucose 93 65 - 199 mg/dL [facility] Comment:Diabetes: >=200 mg/d L plus symptoms Blood Urea Nitrogen 15 10 - 20 mg/dL [facility] Creatinine 0.70(L) 0.80 - 1.50 mg/dL [facility] Sodium 140 135 - 145 mmol/L [facility] Potassium 3.6 3.5 - 5.0 mmol/L [facility] Comment: Please note: ??Patients with WBC >100,000 may have falsely elevated Potassium levels. ??For accurate Potassium quantification in these patients send serum separator tube (gold top) for subsequent determinations. ??Contact the Clinical Chemistry Laboratory if there are any questions. Chloride 100 98 - 107 mmol/L [facility] Carbon Dioxide 23 22 - 31 mmol/L [facility] Anion Gap 17(H) 5 - 15 mmol/L [facility] Calcium 9.8 8.5 - 10.5 mg/dL [facility] Est Glomerular Filtration Rate 129 >=60 mL/min/1. 73 m?? [facility] Comment: The eGFR was calculated using the CKD-EPI equation. As with all creatinine based estimates of kidney function, eGFR values calculated with the CKD-EPI equation are not accurate in patients with acute kidney failure, extremes of body mass or the acutely ill. [email or web address] eGFR 150 >=60 mL/min/1. 73 m?? [facility] Comment: The eGFR was calculated using the CKD-EPI equation. As with all creatinine based estimates of kidney function, eGFR values calculated with the CKD-EPI equation are not accurate in patients with acute kidney failure, extremes of body mass or the acutely ill. [email or web address] Blood specimen (specimen) 02/04/2018 6:30 AM EDT 02/04/2018 6:44 AM EDT Narrative Resulting Agency Comment Spec In Lab Fran Gilliam MD CHEMISTRY ORDERABL ES [facility] [place] [address] * (ABNORMAL) Basic Metabolic Panel (non-fasting) (02/02/2018 9:34 AM EDT) Glucose 107 65 - 199 mg/dL [facility] Comment:Diabetes: >=200 mg/d L plus symptoms Blood Urea Nitrogen 13 10 - 20 mg/dL [facility] Creatinine 0.76(L) 0.80 - 1.50 mg/dL [facility] Sodium 144 135 - 145 mmol/L [facility] Potassium 3.6 3.5 - 5.0 mmol/L [facility] Comment: Please note: ??Patients with WBC >100,000 may have falsely elevated Potassium levels. ??For accurate Potassium quantification in these patients send serum separator tube (gold top) for subsequent determinations. ??Contact the Clinical Chemistry Laboratory if there are any questions. Chloride 104 98 - 107 mmol/L [facility] Carbon Dioxide 24 22 - 31 mmol/L [facility] Anion Gap 16(H) 5 - 15 mmol/L [facility] Calcium 9.8 8.5 - 10.5 mg/dL [facility] Est Glomerular Filtration Rate 125 >=60 mL/min/1. 73 m?? [facility] Comment: The eGFR was calculated using the CKD-EPI equation. As with all creatinine based estimates of kidney function, eGFR values calculated with the CKD-EPI equation are not accurate in patients with acute kidney failure, extremes of body mass or the acutely ill. [email or web address] eGFR 145 >=60 mL/min/1. 73 m?? [facility] Comment: The eGFR was calculated using the CKD-EPI equation. As with all creatinine based estimates of kidney function, eGFR values calculated with the CKD-EPI equation are not accurate in patients with acute kidney failure, extremes of body mass or the acutely ill. [email or web address] Blood specimen (specimen) 02/02/2018 9:34 AM EDT 02/02/2018 9:49 AM EDT Narrative Resulting Agency Comment Spec In Lab Noah Menard MD CHEMISTRY ORDERABLES [facility] [place] [address] * (ABNORMAL) Basic Metabolic Panel (non-fasting) (02/01/2018 11:47 AM EDT) Glucose 119 65 - 199 mg/dL [facility] Comment:Diabetes: >=200 mg/d L plus symptoms Blood Urea Nitrogen 13 10 - 20 mg/dL [facility] Creatinine 0.69(L) 0.80 - 1.50 mg/dL [facility] Sodium 144 135 - 145 mmol/L [facility] Potassium 3.9 3.5 - 5.0 mmol/L [facility] Comment: Please note: ??Patients with WBC >100,000 may have falsely elevated Potassium levels. ??For accurate Potassium quantification in these patients send serum separator tube (gold top) for subsequent determinations. ??Contact the Clinical Chemistry Laboratory if there are any questions. Chloride 106 98 - 107 mmol/L [facility] Carbon Dioxide 22 22 - 31 mmol/L [facility] Anion Gap 16(H) 5 - 15 mmol/L [facility] Calcium 9.7 8.5 - 10.5 mg/dL [facility] Est Glomerular Filtration Rate 130 >=60 mL/min/1. 73 m?? [facility] Comment: The eGFR was calculated using the CKD-EPI equation. As with all creatinine based estimates of kidney function, eGFR values calculated with the CKD-EPI equation are not accurate in patients with acute kidney failure, extremes of body mass or the acutely ill. [email or web address] eGFR 151 >=60 mL/min/1. 73 m?? [facility] Comment: The eGFR was calculated using the CKD-EPI equation. As with all creatinine based estimates of kidney function, eGFR values calculated with the CKD-EPI equation are not accurate in patients with acute kidney failure, extremes of body mass or the acutely ill. [email or web address] Blood specimen (specimen) 02/01/2018 11:47 AM EDT 02/01/2018 12:00 PM EDT Narrative Resulting Agency Comment Spec In Lab Noah Menard MD CHEMISTRY ORDERABLES [facility] [place] [address] * (ABNORMAL) Basic Metabolic Panel (non-fasting) (01/31/2018 6:31 AM EDT) Glucose 99 65 - 199 mg/dL [facility] Comment:Diabetes: >=200 mg/d L plus symptoms Blood Urea Nitrogen 16 10 - 20 mg/dL [facility] Creatinine 0.66(L) 0.80 - 1.50 mg/dL [facility] Sodium 142 135 - 145 mmol/L [facility] Potassium 3.8 3.5 - 5.0 mmol/L [facility] Comment: Please note: ??Patients with WBC >100,000 may have falsely elevated Potassium levels. ??For accurate Potassium quantification in these patients send serum separator tube (gold top) for subsequent determinations. ??Contact the Clinical Chemistry Laboratory if there are any questions. Chloride 105 98 - 107 mmol/L [facility] Carbon Dioxide 22 22 - 31 mmol/L [facility] Anion Gap 15 5 - 15 mmol/L [facility] Calcium 9.6 8.5 - 10.5 mg/dL [facility] Est Glomerular Filtration Rate 132 >=60 mL/min/1. 73 m?? [facility] Comment: The eGFR was calculated using the CKD-EPI equation. As with all creatinine based estimates of kidney function, eGFR values calculated with the CKD-EPI equation are not accurate in patients with acute kidney failure, extremes of body mass or the acutely ill. [email or web address] eGFR 154 >=60 mL/min/1. 73 m?? [facility] Comment: The eGFR was calculated using the CKD-EPI equation. As with all creatinine based estimates of kidney function, eGFR values calculated with the CKD-EPI equation are not accurate in patients with acute kidney failure, extremes of body mass or the acutely ill. [email or web address] Blood specimen (specimen) 01/31/2018 6:31 AM EDT 01/31/2018 6:51 AM EDT Narrative Resulting Agency Comment Spec In Lab Noah Menard MD CHEMISTRY ORDERABLES Performing Organization Address City/State/[facility] Co de Phone Number [facility] [place] [phone] * (ABNORMAL) Basic Metabolic Panel (non-fasting) (01/30/2018 4:49 AM EDT) Glucose 98 65 - 199 mg/dL [facility] Comment:Diabetes: >=200 mg/d L plus symptoms Blood Urea Nitrogen 12 10 - 20 mg/dL [facility] Creatinine 0.62(L) 0.80 - 1.50 mg/dL [facility] Sodium 140 135 - 145 mmol/L [facility] Potassium 3.8 3.5 - 5.0 mmol/L [facility] Comment: Please note: ??Patients with WBC >100,000 may have falsely elevated Potassium levels. ??For accurate Potassium quantification in these patients send serum separator tube (gold top) for subsequent determinations. ??Contact the Clinical Chemistry Laboratory if there are any questions. Chloride 104 98 - 107 mmol/L [facility] Carbon Dioxide 21(L) 22 - 31 mmol/L [facility] Anion Gap 15 5 - 15 mmol/L [facility] Calcium 9.9 8.5 - 10.5 mg/dL [facility] Est Glomerular Filtration Rate 136 >=60 mL/min/1. 73 m?? [facility] Comment: The eGFR was calculated using the CKD-EPI equation. As with all creatinine based estimates of kidney function, eGFR values calculated with the CKD-EPI equation are not accurate in patients with acute kidney failure, extremes of body mass or the acutely ill. [email or web address] eGFR 158 >=60 mL/min/1. 73 m?? [facility] Comment: The eGFR was calculated using the CKD-EPI equation. As with all creatinine based estimates of kidney function, eGFR values calculated with the CKD-EPI equation are not accurate in patients with acute kidney failure, extremes of body mass or the acutely ill. [email or web address] Blood specimen (specimen) 01/30/2018 4:49 AM EDT 01/30/2018 4:55 AM EDT Narrative Resulting Agency Comment Spec In Lab Noah Menard MD CHEMISTRY ORDERABLES [facility] [place] [address] * (ABNORMAL) Basic Metabolic Panel (non-fasting) (01/29/2018 6:36 AM EDT) Glucose 113 65 - 199 mg/dL [facility] Comment:Diabetes: >=200 mg/d L plus symptoms Blood Urea Nitrogen 15 10 - 20 mg/dL [facility] Creatinine 0.72(L) 0.80 - 1.50 mg/dL [facility] Sodium 143 135 - 145 mmol/L [facility] Potassium 3.9 3.5 - 5.0 mmol/L [facility] Comment: Please note: ??Patients with WBC >100,000 may have falsely elevated Potassium levels. ??For accurate Potassium quantification in these patients send serum separator tube (gold top) for subsequent determinations. ??Contact the Clinical Chemistry Laboratory if there are any questions. Chloride 107 98 - 107 mmol/L [facility] Carbon Dioxide 21(L) 22 - 31 mmol/L [facility] Anion Gap 15 5 - 15 mmol/L [facility] Calcium 9.5 8.5 - 10.5 mg/dL [facility] Est Glomerular Filtration Rate 128 >=60 mL/min/1. 73 m?? [facility] Comment: The eGFR was calculated using the CKD-EPI equation. As with all creatinine based estimates of kidney function, eGFR values calculated with the CKD-EPI equation are not accurate in patients with acute kidney failure, extremes of body mass or the acutely ill. [email or web address] eGFR 148 >=60 mL/min/1. 73 m?? [facility] Comment: The eGFR was calculated using the CKD-EPI equation. As with all creatinine based estimates of kidney function, eGFR values calculated with the CKD-EPI equation are not accurate in patients with acute kidney failure, extremes of body mass or the acutely ill. [email or web address] Blood specimen (specimen) 01/29/2018 6:36 AM EDT 01/29/2018 6:49 AM EDT Narrative Resulting Agency Comment Spec In Lab Noah Menard MD CHEMISTRY ORDERABLES [facility] [place] [address] * (ABNORMAL) Basic Metabolic Panel (non-fasting) (01/28/2018 8:26 AM EDT) Glucose 112 65 - 199 mg/dL [facility] Comment:Diabetes: >=200 mg/d L plus symptoms Blood Urea Nitrogen 22(H) 10 - 20 mg/dL [facility] Creatinine 1.04 0.80 - 1.50 mg/dL [facility] Sodium 142 135 - 145 mmol/L [facility] Potassium 3.4(L) 3.5 - 5.0 mmol/L [facility] Comment: Please note: ??Patients with WBC >100,000 may have falsely elevated Potassium levels. ??For accurate Potassium quantification in these patients send serum separator tube (gold top) for subsequent determinations. ??Contact the Clinical Chemistry Laboratory if there are any questions. Chloride 101 98 - 107 mmol/L [facility] Carbon Dioxide 23 22 - 31 mmol/L [facility] Anion Gap 18(H) 5 - 15 mmol/L [facility] Calcium 9.3 8.5 - 10.5 mg/dL [facility] Est Glomerular Filtration Rate 98 >=60 mL/min/1. 73 m?? [facility] Comment: The eGFR was calculated using the CKD-EPI equation. As with all creatinine based estimates of kidney function, eGFR values calculated with the CKD-EPI equation are not accurate in patients with acute kidney failure, extremes of body mass or the acutely ill. [email or web address]SAnkf eGFR 114 >=60 mL/min/1. 73 m?? [facility] Comment: The eGFR was calculated using the CKD-EPI equation. As with all creatinine based estimates of kidney function, eGFR values calculated with the CKD-EPI equation are not accurate in patients with acute kidney failure, extremes of body mass or the acutely ill. [email or web address] Blood specimen (specimen) 01/28/2018 8:26 AM EDT 01/28/2018 8:31 AM EDT Narrative Resulting Agency Comment Spec In Lab Noah Menard MD CHEMISTRY ORDERABLES [facility] [place] [address] * (ABNORMAL) Electrolytes panel (01/27/2018 6:24 AM EDT) Sodium 149(H) 135 - 145 mmol/L [facility] Potassium 3.8 3.5 - 5.0 mmol/L [facility] Comment: Please note: ??Patients with WBC >100,000 may have falsely elevated Potassium levels. ??For accurate Potassium quantification in these patients send serum separator tube (gold top) for subsequent determinations. ??Contact the Clinical Chemistry Laboratory if there are any questions. Chloride 109(H) 98 - 107 mmol/L [facility] Carbon Dioxide 25 22 - 31 mmol/L [facility] Anion Gap 15 5 - 15 mmol/L [facility] Blood specimen (specimen) 01/27/2018 6:24 AM EDT 01/27/2018 6:39 AM EDT Narrative Resulting Agency Comment Spec In Lab Crista Aguilar MD CHEMISTRY ORDERABLE S [facility] [place] [address] * T4, free (01/26/2018 6:13 AM EDT) Free T4 0.95 0.93 - 1.70 ng/dL [facility] Blood specimen (specimen) 01/26/2018 6:13 AM EDT 01/26/2018 6:24 AM EDT Narrative Resulting Agency Comment Spec In Lab Crista Aguilar MD CHEMISTRY ORDERABLE S [facility] [place] [address] * (ABNORMAL) Electrolytes panel (01/25/2018 6:28 AM EDT) Sodium 145 135 - 145 mmol/L [facility] Potassium 3.9 3.5 - 5.0 mmol/L [facility] Comment: Please note: ??Patients with WBC >100,000 may have falsely elevated Potassium levels. ??For accurate Potassium quantification in these patients send serum separator tube (gold top) for subsequent determinations. ??Contact the Clinical Chemistry Laboratory if there are any questions. Chloride 104 98 - 107 mmol/L [facility] Carbon Dioxide 25 22 - 31 mmol/L [facility] Anion Gap 16(H) 5 - 15 mmol/L [facility] Blood specimen (specimen) 01/25/2018 6:28 AM EDT 01/25/2018 6:41 AM EDT Narrative Resulting Agency Comment Spec In Lab Crista Aguilar MD CHEMISTRY ORDERABLE S Performing Organization Address [facility]/ZIP Co de Phone Number [facility] [place] [address] * T4, free (01/23/2018 6:11 AM EDT) Free T4 0.94 0.93 - 1.70 ng/dL [facility] Blood specimen (specimen) Venous Draw / Unknown 01/23/2018 6:11 AM EDT 01/23/2018 6:42 AM EDT Narrative Resulting Agency Comment Spec In Lab Yadi Mccauley MD CHEMISTRY ORDERAB LES Performing Organization Address City/[facility]/ZIP Co de Phone Number [facility] [place] [address] * (ABNORMAL) Electrolytes panel (01/23/2018 6:11 AM EDT) Sodium 144 135 - 145 mmol/L [facility] Potassium 3.9 3.5 - 5.0 mmol/L [facility] Comment: Please note: ??Patients with WBC >100,000 may have falsely elevated Potassium levels. ??For accurate Potassium quantification in these patients send serum separator tube (gold top) for subsequent determinations. ??Contact the Clinical Chemistry Laboratory if there are any questions. Chloride 106 98 - 107 mmol/L [facility] Carbon Dioxide 22 22 - 31 mmol/L [facility] Anion Gap 16(H) 5 - 15 mmol/L [facility] Blood specimen (specimen) 01/23/2018 6:11 AM EDT 01/23/2018 6:37 AM EDT Narrative Resulting Agency Comment Spec In Lab Crista Aguilar MD CHEMISTRY ORDERABLE S Performing Organization Address [facility] Co de Phone Number [facility] [place] [address] * (ABNORMAL) Electrolytes panel (01/21/2018 4:34 AM EDT) Sodium 139 135 - 145 mmol/L [facility] Potassium 4.0 3.5 - 5.0 mmol/L [facility] Comment: Please note: ??Patients with WBC >100,000 may have falsely elevated Potassium levels. ??For accurate Potassium quantification in these patients send serum separator tube (gold top) for subsequent determinations. ??Contact the Clinical Chemistry Laboratory if there are any questions. Chloride 103 98 - 107 mmol/L [facility] Carbon Dioxide 20(L) 22 - 31 mmol/L [facility] Anion Gap 16(H) 5 - 15 mmol/L [facility] Blood specimen (specimen) 01/21/2018 4:34 AM EDT 01/21/2018 4:55 AM EDT Narrative Resulting Agency Comment Spec In Lab Crista Aguilar MD CHEMISTRY ORDERABLE S Performing Organization Address [facility]/ZIP Co de Phone Number [facility] [place] [address] * (ABNORMAL) Electrolytes panel (01/19/2018 7:21 AM EDT) Sodium 142 135 - 145 mmol/L [facility] Potassium 3.6 3.5 - 5.0 mmol/L [facility] Comment: Please note: ??Patients with WBC >100,000 may have falsely elevated Potassium levels. ??For accurate Potassium quantification in these patients send serum separator tube (gold top) for subsequent determinations. ??Contact the Clinical Chemistry Laboratory if there are any questions. Chloride 103 98 - 107 mmol/L [facility] [facility] Carbon Dioxide 23 22 - 31 mmol/L [facility] Anion Gap 16(H) 5 - 15 mmol/L [facility] Blood specimen (specimen) 01/19/2018 7:21 AM EDT 01/19/2018 7:26 AM EDT Narrative Resulting Agency Comment Spec In Lab Crista Aguilar MD CHEMISTRY ORDERABLE S Performing Organization Address [facility]/ZIP Co de Phone Number [facility] [place] [address] * (ABNORMAL) Electrolytes panel (01/17/2018 5:17 AM EDT) Pathologist [facility] Sodium 140 135 - 145 mmol/L [facility] Potassium 3.4(L) 3.5 - 5.0 mmol/L [facility] Comment: Please note: ??Patients with WBC >100,000 may have falsely elevated Potassium levels. ??For accurate Potassium quantification in these patients send serum separator tube (gold top) for subsequent determinations. ??Contact the Clinical Chemistry Laboratory if there are any questions. Chloride 102 98 - 107 mmol/L [facility] Carbon Dioxide 24 22 - 31 mmol/L [facility] Anion Gap 14 5 - 15 mmol/L [facility] Blood specimen (specimen) 01/17/2018 5:17 AM EDT 01/17/2018 5:31 AM EDT Narrative Resulting Agency Comment Spec In Lab Crista Aguilar MD CHEMISTRY ORDERABLE S Performing Organization Address City/[facility]/ZIP Co de Phone Number [facility] [place] [address] * (ABNORMAL) Differential, Automated (01/16/2018 5:02 AM EDT) Neutrophil % 40.0 % [facility] Neutrophil Absolute 2.01 1.70 - 6.10 x10(3)/[facility] Lymph % 43.8 % [facility] Lymphocytes Abs 2.2 0.9 - 3.2 x10(3)/[facility] Monocyte % 10.2 % [facility] Monocyte Abs 0.5 0.3 - 0.9 x10(3)/[facility] Eos % 4.2 % [facility] Eosinophils Abs 0.2 0.0 - 0.4 x10(3)/[facility] Basophil % 0.8 % [facility] Baso Absolute 0.0 0.0 - 0.1 x10(3)/[facility] Immature Gran % 1.00 % [facility] Comment: Immature granulocytes(IG's)percentage and absolute count will include metamyelocytes, myelocytes, and promyelocytes. Blood smears from CBCs yielding IG's will be scanned manually for concordance. If this scan disagrees with the automated IG or if promyelocytes are noted, a manual differential will be performed. Immature Gran Absolute 0.05(H) 0.00 - 0.04 x10(3)/[facility] Blood specimen (specimen) 01/16/2018 5:02 AM EDT 01/16/2018 5:21 AM EDT Narrative Resulting Agency Comment Spec In Lab Crista Aguilar MD HEMATOLOGY ORDERABL ES [facility] [place] [address] * (ABNORMAL) Hemogram (01/16/2018 5:02 AM EDT) Pathologist [facility] White Blood Cell 5.0 4.0 - 9.5 x10(3)/[facility] Red Blood Cell 4.81 4.58 - 5.54 x10(6)/ L [facility] Hemoglobin 11.2(L) 13.7 - 16.5 gm/dL [facility] Hematocrit 35.5(L) 40.5 - 48.5 % [facility] Mean Cell Volume 73.8(L) 82.9 - 93.1 fL [facility] Mean Cell Hemoglobin 23.3(L) 27.5 - 32.1 pg [facility] Mean Cell Hemoglobin Concentration 31.5(L) 32.0 - 35.7 gm/dL [facility] Platelet 298 145 - 357 x10(3)/mc L [facility] RDW Standard Deviation 45.8(H) 36.0 - 45.0 [facility] RDW coefficient of variation 17.2(H) 11.4 - 13.8 % [facility] Mean Platelet Volume 10.6 7.6 - 12.9 [facility] NRBC% auto 0.0 % [facility] NRBC Absolute 0.000 0.000 - 0.000 x10(3)/mc L [facility] Blood specimen (specimen) 01/16/2018 5:02 AM EDT 01/16/2018 5:21 AM EDT Narrative Resulting Agency Comment Spec In Lab Crista Aguilar MD HEMATOLOGY ORDERABL ES Performing Organization Address City/State/[facility] Co de Phone Number [facility] [place] [address] * (ABNORMAL) Basic Metabolic Panel (non-fasting) (01/16/2018 5:02 AM EDT) Glucose 78 65 - 199 mg/dL [facility] Comment:Diabetes: >=200 mg/d L plus symptoms Blood Urea Nitrogen 17 10 - 20 mg/dL [facility] Creatinine 0.83 0.80 - 1.50 mg/dL [facility] Sodium 146(H) 135 - 145 mmol/L [facility] Potassium 3.7 3.5 - 5.0 mmol/L [facility] Comment: Please note: ??Patients with WBC >100,000 may have falsely elevated Potassium levels. ??For accurate Potassium quantification in these patients send serum separator tube (gold top) for subsequent determinations. ??Contact the Clinical Chemistry Laboratory if there are any questions. Chloride 108(H) 98 - 107 mmol/L [facility] Carbon Dioxide 23 22 - 31 mmol/L [facility] Anion Gap 15 5 - 15 mmol/L [facility] Calcium 10.1 8.5 - 10.5 mg/dL [facility] Est Glomerular Filtration Rate 121 >=60 mL/min/1. 73 m?? [facility] Comment: The eGFR was calculated using the CKD-EPI equation. As with all creatinine based estimates of kidney function, eGFR values calculated with the CKD-EPI equation are not accurate in patients with acute kidney failure, extremes of body mass or the acutely ill. [email or web address] [email or web address] TULSAnkf eGFR 140 >=60 mL/min/1. 73 m?? [facility] Comment: The eGFR was calculated using the CKD-EPI equation. As with all creatinine based estimates of kidney function, eGFR values calculated with the CKD-EPI equation are not accurate in patients with acute kidney failure, extremes of body mass or the acutely ill. [email or web address] TULSAnkf Blood specimen (specimen) 01/16/2018 5:02 AM EDT 01/16/2018 5:21 AM EDT Narrative Resulting Agency Comment Spec In Lab Crista Aguilar MD CHEMISTRY ORDERABLE S [facility] [place] [address] * (ABNORMAL) Electrolytes panel (01/15/2018 6:12 AM EDT) Sodium 148(H) 135 - 145 mmol/L [facility] Potassium Not Perf 3.5 - 5.0 [facility] Comment: Unable to quantitate due to sample hemolysis. ??Sample redraw suggested. Called by: CHRISSY, Read back by: Vandana Jean Baptiste, Date/Time:01/15/18 07:12. Please note: ??Patients with WBC >100,000 may have falsely elevated Potassium levels. ??For accurate Potassium quantification in these patients send serum separator tube (gold top) for subsequent determinations. ??Contact the Clinical Chemistry Laboratory if there are any questions. Chloride 110(H) 98 - 107 mmol/L [facility] Carbon Dioxide 23 22 - 31 mmol/L [facility] Anion Gap 15 5 - 15 mmol/L [facility] Blood specimen (specimen) 01/15/2018 6:12 AM EDT 01/15/2018 6:26 AM EDT Narrative Resulting Agency Comment Spec In Lab Crista Aguilar MD CHEMISTRY ORDERABLE S [facility] [place] [address] * Electrolytes panel (01/13/2018 6:23 AM EDT) Sodium 142 135 - 145 mmol/L [facility] Potassium 3.6 3.5 - 5.0 mmol/L [facility] Comment: Please note: ??Patients with WBC >100,000 may have falsely elevated Potassium levels. ??For accurate Potassium quantification in these patients send serum separator tube (gold top) for subsequent determinations. ??Contact the Clinical Chemistry Laboratory if there are any questions. Chloride 106 98 - 107 mmol/L [facility] Carbon Dioxide 23 22 - 31 mmol/L [facility] Anion Gap 13 5 - 15 mmol/L [facility] Blood specimen (specimen) 01/13/2018 6:23 AM EDT 01/13/2018 6:32 AM EDT Narrative Resulting Agency Comment Spec In Lab Maldonado Salazar MD CHEMISTRY ORDERABLES [facility] [place] [address] * T3 Total (01/12/2018 7:53 AM EDT) [facility] T3 Total 97 75 - 170 ng/dL [facility] Blood specimen (specimen) Venous Draw / Unknown 01/12/2018 7:53 AM EDT 01/12/2018 9:37 AM EDT Narrative Resulting Agency Comment Spec In Lab Guerrero Tillman MD CHEMISTRY ORDE RABLES Performing Organization Address [facility]/ZIP Co de Phone Number [facility] [place] [address] * (ABNORMAL) Electrolytes panel (01/12/2018 7:53 AM EDT) [facility] Sodium 143 135 - 145 mmol/L [facility] Potassium 3.7 3.5 - 5.0 mmol/L [facility] Comment: Please note: ??Patients with WBC >100,000 may have falsely elevated Potassium levels. ??For accurate Potassium quantification in these patients send serum separator tube (gold top) for subsequent determinations. ??Contact the Clinical Chemistry Laboratory if there are any questions. Chloride 102 98 - 107 mmol/L [facility] Carbon Dioxide 23 22 - 31 mmol/L [facility] Anion Gap 18(H) 5 - 15 mmol/L [facility] Blood specimen (specimen) 01/12/2018 7:53 AM EDT 01/12/2018 8:10 AM EDT Narrative Resulting Agency Comment Spec In Lab Maldonado Salazar MD CHEMISTRY ORDERABLES Performing Organization Address City/[facility]/ZIP Co de Phone Number [facility] [place] [address] * (ABNORMAL) Electrolytes panel (01/11/2018 7:22 AM EDT) Sodium 141 135 - 145 mmol/L [facility] Potassium 3.7 3.5 - 5.0 mmol/L [facility] Comment: Please note: ??Patients with WBC >100,000 may have falsely elevated Potassium levels. ??For accurate Potassium quantification in these patients send serum separator tube (gold top) for subsequent determinations. ??Contact the Clinical Chemistry Laboratory if there are any questions. Chloride 101 98 - 107 mmol/L [facility] Comment:result rechecked-sb Carbon Dioxide 24 22 - 31 mmol/L [facility] Anion Gap 16(H) 5 - 15 mmol/L [facility] Blood specimen (specimen) 01/11/2018 7:22 AM EDT 01/11/2018 7:31 AM EDT Narrative Resulting Agency Comment Spec In Lab Maldonado Salazar MD CHEMISTRY ORDERABLES Performing Organization Address City/[facility]/ZIP Co de Phone Number [facility] [place] [address] * (ABNORMAL) T4, free (01/11/2018 7:22 AM EDT) Free T4 0.74(L) 0.93 - 1.70 ng/dL [facility] Blood specimen (specimen) 01/11/2018 7:22 AM EDT 01/11/2018 7:31 AM EDT Narrative Resulting Agency Comment Spec In Lab Crista Aguilar MD CHEMISTRY ORDERABLE S [facility] [place] [address] * (ABNORMAL) Electrolytes panel (01/10/2018 5:10 AM EDT) Sodium 148(H) 135 - 145 mmol/L [facility] Potassium 3.7 3.5 - 5.0 mmol/L [facility] Comment: Please note: ??Patients with WBC >100,000 may have falsely elevated Potassium levels. ??For accurate Potassium quantification in these patients send serum separator tube (gold top) for subsequent determinations. ??Contact the Clinical Chemistry Laboratory if there are any questions. Chloride 106 98 - 107 mmol/L [facility] Carbon Dioxide 24 22 - 31 mmol/L [facility] Anion Gap 18(H) 5 - 15 mmol/L [facility] Blood specimen (specimen) 01/10/2018 5:10 AM EDT 01/10/2018 5:15 AM EDT Narrative Resulting Agency Comment Spec In Lab Maldonado Salazar MD CHEMISTRY ORDERABLES Performing Organization Address [facility] Co de Phone Number [facility] [place] [address] * (ABNORMAL) Electrolytes panel (01/09/2018 5:06 AM EDT) Sodium 149(H) 135 - 145 mmol/L [facility] Potassium 3.8 3.5 - 5.0 mmol/L [facility] Comment: Please note: ??Patients with WBC >100,000 may have falsely elevated Potassium levels. ??For accurate Potassium quantification in these patients send serum separator tube (gold top) for subsequent determinations. ??Contact the Clinical Chemistry Laboratory if there are any questions. Chloride 110(H) 98 - 107 mmol/L [facility] Carbon Dioxide 25 22 - 31 mmol/L [facility] Anion Gap 14 5 - 15 mmol/L [facility] Blood specimen (specimen) 01/09/2018 5:06 AM EDT 01/09/2018 5:24 AM EDT Narrative Resulting Agency Comment Spec In Lab Maldonado Salazar MD CHEMISTRY ORDERABLES Performing Organization Address [facility] Co de Phone Number [facility] [place] [address] * (ABNORMAL) Electrolytes panel (01/08/2018 6:07 AM EDT) Sodium 149(H) 135 - 145 mmol/L [facility] Potassium 3.7 3.5 - 5.0 mmol/L [facility] Comment: Please note: ??Patients with WBC >100,000 may have falsely elevated Potassium levels. ??For accurate Potassium quantification in these patients send serum separator tube (gold top) for subsequent determinations. ??Contact the Clinical Chemistry Laboratory if there are any questions. Chloride 111(H) 98 - 107 mmol/L [facility] Carbon Dioxide 24 22 - 31 mmol/L [facility] Anion Gap 14 5 - 15 mmol/L [facility] Blood specimen (specimen) 01/08/2018 6:07 AM EDT 01/08/2018 6:14 AM EDT Narrative Resulting Agency Comment Spec In Lab Maldonado Salazar MD CHEMISTRY ORDERABLES Performing Organization Address City/State/[facility] Co de Phone Number [facility] [place] [address] * (ABNORMAL) Electrolytes panel (01/07/2018 7:01 AM EDT) Sodium 148(H) 135 - 145 mmol/L [facility] Comment:Specimen ultracentri fuged due to gross lipemia Potassium Not Perf 3.5 - 5.0 [facility] Comment: Unable to quantitate due to sample hemolysis. ??Sample redraw suggested. Called Hafsa 01/07/18 08:35 ms Please note: ??Patients with WBC >100,000 may have falsely elevated Potassium levels. ??For accurate Potassium quantification in these patients send serum separator tube (gold top) for subsequent determinations. ??Contact the Clinical Chemistry Laboratory if there are any questions. Chloride 112(H) 98 - 107 mmol/L [facility] Comment:Specimen ultracentri fuged due to gross lipemia Carbon Dioxide 26 22 - 31 mmol/L [facility] Anion Gap 10 5 - 15 mmol/L [facility] Blood specimen (specimen) 01/07/2018 7:01 AM EDT 01/07/2018 7:16 AM EDT Narrative Resulting Agency Comment Spec In Lab Maldonado Salazar MD CHEMISTRY ORDERABLES Performing Organization Address [facility] Co de Phone Number [facility] [place] [address] * (ABNORMAL) Electrolytes panel (01/06/2018 11:21 PM EDT) Sodium 148(H) 135 - 145 mmol/L [facility] Potassium Not Perf 3.5 - 5.0 [facility] Comment: Specimen hemolyzed. Called by: [facility], Read back by: Denisse Lebron, Date/Time:01/07/18 00:15. Please note: ??Patients with WBC >100,000 may have falsely elevated Potassium levels. ??For accurate Potassium quantification in these patients send serum separator tube (gold top) for subsequent determinations. ??Contact the Clinical Chemistry Laboratory if there are any questions. Chloride 109(H) 98 - 107 mmol/L [facility] Carbon Dioxide 24 22 - 31 mmol/L [facility] Anion Gap 15 5 - 15 mmol/L [facility] Blood specimen (specimen) 01/06/2018 11:21 PM EDT 01/06/2018 11:34 PM EDT Narrative Resulting Agency Comment Spec In Lab Maldonado Salazar MD CHEMISTRY ORDERABLES Performing Organization Address [facility] Co de Phone Number [facility] [place] [address] * (ABNORMAL) Electrolytes panel (01/06/2018 6:47 AM EDT) Sodium 149(H) 135 - 145 mmol/L [facility] Potassium Not Perf 3.5 - 5.0 [facility] Comment: Called by: [facility], Read back by: Sarika Michael, Date/Time:01/06/18 08:08. Please note: ??Patients with WBC >100,000 may have falsely elevated Potassium levels. ??For accurate Potassium quantification in these patients send serum separator tube (gold top) for subsequent determinations. ??Contact the Clinical Chemistry Laboratory if there are any questions. Chloride 110(H) 98 - 107 mmol/L [facility] Carbon Dioxide 23 22 - 31 mmol/L [facility] Anion Gap 16(H) 5 - 15 mmol/L [facility] Blood specimen (specimen) 01/06/2018 6:47 AM EDT 01/06/2018 7:10 AM EDT Narrative Resulting Agency Comment Spec In Lab Maldonado Salazar MD CHEMISTRY ORDERABLES Performing Organization Address [facility]/ZIP Co de Phone Number [facility] [place] [address] * (ABNORMAL) Electrolytes panel (01/05/2018 5:48 PM EDT) Sodium 146(H) 135 - 145 mmol/L [facility] Potassium 4.0 3.5 - 5.0 mmol/L [facility] Comment: Please note: ??Patients with WBC >100,000 may have falsely elevated Potassium levels. ??For accurate Potassium quantification in these patients send serum separator tube (gold top) for subsequent determinations. ??Contact the Clinical Chemistry Laboratory if there are any questions. Chloride 107 98 - 107 mmol/L [facility] Carbon Dioxide 22 22 - 31 mmol/L [facility] Anion Gap 17(H) 5 - 15 mmol/L [facility] Blood specimen (specimen) 01/05/2018 5:48 PM EDT 01/05/2018 6:03 PM EDT Narrative Resulting Agency Comment Spec In Lab Maldonado Salazar MD CHEMISTRY ORDERABLES Performing Organization Address [facility]/ZIP Co de Phone Number [facility] [place] [address] * (ABNORMAL) Electrolytes panel (01/05/2018 5:38 AM EDT) Sodium 151(H) 135 - 145 mmol/L [facility] Comment:result rechecked-jt Potassium 3.5 3.5 - 5.0 mmol/L [facility] Comment: Please note: ??Patients with WBC >100,000 may have falsely elevated Potassium levels. ??For accurate Potassium quantification in these patients send serum separator tube (gold top) for subsequent determinations. ??Contact the Clinical Chemistry Laboratory if there are any questions. Chloride 114(H) 98 - 107 mmol/L [facility] Comment:result rechecked-jt Carbon Dioxide 23 22 - 31 mmol/L [facility] Anion Gap 14 5 - 15 mmol/L [facility] Blood specimen (specimen) 01/05/2018 5:38 AM EDT 01/05/2018 5:56 AM EDT Narrative Resulting Agency Comment Spec In Lab Maldonado Salazar MD CHEMISTRY ORDERABLES [facility] [place] [address] * (ABNORMAL) Electrolytes panel (01/04/2018 7:08 AM EDT) Sodium 146(H) 135 - 145 mmol/L [facility] Comment:Specimen ultracentri fuged due to gross lipemia Potassium 3.2(L) 3.5 - 5.0 mmol/L [facility] Comment: Please note: ??Patients with WBC >100,000 may have falsely elevated Potassium levels. ??For accurate Potassium quantification in these patients send serum separator tube (gold top) for subsequent determinations. ??Contact the Clinical Chemistry Laboratory if there are any questions. Chloride 102 98 - 107 mmol/L [facility] Carbon Dioxide 25 22 - 31 mmol/L [facility] Anion Gap 19(H) 5 - 15 mmol/L [facility] Blood specimen (specimen) 01/04/2018 7:08 AM EDT 01/04/2018 7:16 AM EDT Narrative Resulting Agency Comment Spec In Lab Sherri Hanson MD CHEMISTRY ORDERABL ES Performing Organization Address [facility] Co de Phone Number [facility] [place] [address] * Electrolytes panel (01/04/2018 3:14 AM EDT) Sodium 140 135 - 145 mmol/L [facility] Potassium 3.6 3.5 - 5.0 mmol/L [facility] Comment: Please note: ??Patients with WBC >100,000 may have falsely elevated Potassium levels. ??For accurate Potassium quantification in these patients send serum separator tube (gold top) for subsequent determinations. ??Contact the Clinical Chemistry Laboratory if there are any questions. Chloride 103 98 - 107 mmol/L [facility] Carbon Dioxide 23 22 - 31 mmol/L [facility] Anion Gap 14 5 - 15 mmol/L [facility] Blood specimen (specimen) 01/04/2018 3:14 AM EDT 01/04/2018 3:19 AM EDT Narrative Resulting Agency Comment Spec In Lab Sherri Hanson MD CHEMISTRY ORDERABL ES Performing Organization Address [facility] Co de Phone Number [facility] [place] [address] * (ABNORMAL) Electrolytes panel (01/03/2018 10:48 PM EDT) Sodium 142 135 - 145 mmol/L [facility] Potassium 3.4(L) 3.5 - 5.0 mmol/L [facility] Comment: Please note: ??Patients with WBC >100,000 may have falsely elevated Potassium levels. ??For accurate Potassium quantification in these patients send serum separator tube (gold top) for subsequent determinations. ??Contact the Clinical Chemistry Laboratory if there are any questions. Chloride 102 98 - 107 mmol/L [facility] Carbon Dioxide 25 22 - 31 mmol/L [facility] Anion Gap 15 5 - 15 mmol/L [facility] Blood specimen (specimen) 01/03/2018 10:48 PM EDT 01/03/2018 11:09 PM EDT Narrative Resulting Agency Comment Spec In Lab Sherri Hanson MD CHEMISTRY ORDERABL ES Performing Organization Address [facility] de Phone Number [facility] [place] [address] * (ABNORMAL) Electrolytes panel (01/03/2018 1:32 PM EDT) Sodium 139 135 - 145 mmol/L [facility] Potassium 3.8 3.5 - 5.0 mmol/L [facility] Comment: Please note: ??Patients with WBC >100,000 may have falsely elevated Potassium levels. ??For accurate Potassium quantification in these patients send serum separator tube (gold top) for subsequent determinations. ??Contact the Clinical Chemistry Laboratory if there are any questions. Chloride 97(L) 98 - 107 mmol/L [facility] Carbon Dioxide 25 22 - 31 mmol/L [facility] Anion Gap 17(H) 5 - 15 mmol/L [facility] Blood specimen (specimen) 01/03/2018 1:32 PM EDT 01/03/2018 1:37 PM EDT Narrative Resulting Agency Comment Spec In Lab Maldonado Salazar MD CHEMISTRY ORDERABLES Performing Organization Address [facility] Co de Phone Number [facility] [place] [address] * (ABNORMAL) Electrolytes panel (01/03/2018 8:38 AM EDT) Sodium 145 135 - 145 mmol/L [facility] Potassium 3.7 3.5 - 5.0 mmol/L [facility] Comment: Please note: ??Patients with WBC >100,000 may have falsely elevated Potassium levels. ??For accurate Potassium quantification in these patients send serum separator tube (gold top) for subsequent determinations. ??Contact the Clinical Chemistry Laboratory if there are any questions. Chloride 105 98 - 107 mmol/L [facility] Carbon Dioxide 23 22 - 31 mmol/L [facility] Anion Gap 17(H) 5 - 15 mmol/L [facility] Blood specimen (specimen) 01/03/2018 8:38 AM EDT 01/03/2018 8:56 AM EDT Narrative Resulting Agency Comment Spec In Lab Fran Gilliam MD CHEMISTRY ORDERABL ES Performing Organization Address [facility]/ZIP Co de Phone Number [facility] [place] [address] * (ABNORMAL) Electrolytes panel (01/02/2018 8:55 AM EDT) Sodium 155(H) 135 - 145 mmol/L [facility] Potassium 3.8 3.5 - 5.0 mmol/L [facility] Comment: Please note: ??Patients with WBC >100,000 may have falsely elevated Potassium levels. ??For accurate Potassium quantification in these patients send serum separator tube (gold top) for subsequent determinations. ??Contact the Clinical Chemistry Laboratory if there are any questions. Chloride 113(H) 98 - 107 mmol/L [facility] Carbon Dioxide 27 22 - 31 mmol/L [facility] Anion Gap 15 5 - 15 mmol/L [facility] Blood specimen (specimen) 01/02/2018 8:55 AM EDT 01/02/2018 9:04 AM EDT Narrative Resulting Agency Comment Spec In Lab Fran Gilliam MD CHEMISTRY ORDERABL ES Performing Organization Address City/[facility]/ZIP Co de Phone Number [facility] [place] [address] * (ABNORMAL) Electrolytes panel (12/30/2017 8:24 AM EDT) Sodium 147(H) 135 - 145 mmol/L [facility] Potassium 3.9 3.5 - 5.0 mmol/L [facility] Comment: Please note: ??Patients with WBC >100,000 may have falsely elevated Potassium levels. ??For accurate Potassium quantification in these patients send serum separator tube (gold top) for subsequent determinations. ??Contact the Clinical Chemistry Laboratory if there are any questions. Chloride 108(H) 98 - 107 mmol/L [facility] Carbon Dioxide 25 22 - 31 mmol/L [facility] Anion Gap 14 5 - 15 mmol/L [facility] Blood specimen (specimen) 12/30/2017 8:24 AM EDT 12/30/2017 8:37 AM EDT Narrative Resulting Agency Comment Spec In Lab Fran Gilliam MD CHEMISTRY ORDERABL ES Performing Organization Address [facility] Co de Phone Number [facility] [place] [address] * (ABNORMAL) Electrolytes panel (12/29/2017 3:57 AM EDT) Sodium 142 135 - 145 mmol/L [facility] Potassium 4.1 3.5 - 5.0 mmol/L [facility] Comment: Please note: ??Patients with WBC >100,000 may have falsely elevated Potassium levels. ??For accurate Potassium quantification in these patients send serum separator tube (gold top) for subsequent determinations. ??Contact the Clinical Chemistry Laboratory if there are any questions. Chloride 103 98 - 107 mmol/L [facility] Carbon Dioxide 22 22 - 31 mmol/L [facility] Anion Gap 17(H) 5 - 15 mmol/L [facility] Blood specimen (specimen) 12/29/2017 3:57 AM EDT 12/29/2017 4:03 AM EDT Narrative Resulting Agency Comment Spec In Lab Fran Gilliam MD CHEMISTRY ORDERABL ES Performing Organization Address [facility] Co de Phone Number [facility] [place] [address] * (ABNORMAL) Electrolytes panel (12/28/2017 8:27 PM EDT) Sodium 145 135 - 145 mmol/L [facility] Comment:Specimen ultracentri fuged due to gross lipemia Potassium 4.2 3.5 - 5.0 mmol/L [facility] Comment: Please note: ??Patients with WBC >100,000 may have falsely elevated Potassium levels. ??For accurate Potassium quantification in these patients send serum separator tube (gold top) for subsequent determinations. ??Contact the Clinical Chemistry Laboratory if there are any questions. Chloride 104 98 - 107 mmol/L [facility] Carbon Dioxide 24 22 - 31 mmol/L [facility] Anion Gap 17(H) 5 - 15 mmol/L [facility] Blood specimen (specimen) 12/28/2017 8:27 PM EDT 12/28/2017 8:32 PM EDT Narrative Resulting Agency Comment Spec In Lab Fran Gilliam MD CHEMISTRY ORDERABL ES [facility] [place] [id number] * (ABNORMAL) Electrolytes panel (12/28/2017 5:08 AM EDT) Sodium 148(H) 135 - 145 mmol/L [facility] Potassium 3.9 3.5 - 5.0 mmol/L [facility] Comment: Please note: ??Patients with WBC >100,000 may have falsely elevated Potassium levels. ??For accurate Potassium quantification in these patients send serum separator tube (gold top) for subsequent determinations. ??Contact the Clinical Chemistry Laboratory if there are any questions. Chloride 105 98 - 107 mmol/L [facility] Carbon Dioxide 25 22 - 31 mmol/L [facility] Anion Gap 18(H) 5 - 15 mmol/L [facility] Blood specimen (specimen) 12/28/2017 5:08 AM EDT 12/28/2017 5:26 AM EDT Narrative Resulting Agency Comment Spec In Lab Fran Gilliam MD CHEMISTRY ORDERABL ES [facility] [place] [address] * (ABNORMAL) Basic Metabolic Panel (non-fasting) (12/28/2017 12:04 AM EDT) Glucose 114 65 - 199 mg/dL [facility] Comment:Diabetes: >=200 mg/d L plus symptoms Blood Urea Nitrogen 22(H) 10 - 20 mg/dL [facility] Creatinine 0.90 0.80 - 1.50 mg/dL [facility] Sodium 146(H) 135 - 145 mmol/L [facility] Comment:result rechecked-jt Potassium 3.6 3.5 - 5.0 mmol/L [facility] Comment: Please note: ??Patients with WBC >100,000 may have falsely elevated Potassium levels. ??For accurate Potassium quantification in these patients send serum separator tube (gold top) for subsequent determinations. ??Contact the Clinical Chemistry Laboratory if there are any questions. Chloride 104 98 - 107 mmol/L [facility] Comment:result rechecked-jt Carbon Dioxide 25 22 - 31 mmol/L [facility] Anion Gap 17(H) 5 - 15 mmol/L [facility] Calcium 9.4 8.5 - 10.5 mg/dL [facility] Est Glomerular Filtration Rate 117 >=60 mL/min/1. 73 m?? [facility] Comment: The eGFR was calculated using the CKD-EPI equation. As with all creatinine based estimates of kidney function, eGFR values calculated with the CKD-EPI equation are not accurate in patients with acute kidney failure, extremes of body mass or the acutely ill. [email or web address] [email or web address] eGFR 135 >=60 mL/min/1. 73 m?? [facility] Comment: The eGFR was calculated using the CKD-EPI equation. As with all creatinine based estimates of kidney function, eGFR values calculated with the CKD-EPI equation are not accurate in patients with acute kidney failure, extremes of body mass or the acutely ill. [email or web address] [email or web address] Blood specimen (specimen) 12/28/2017 12:04 AM EDT 12/28/2017 12:10 AM EDT Narrative Resulting Agency Comment Spec In Lab Fran Gilliam MD CHEMISTRY ORDERABL ES Performing Organization Address City/[facility]/ZIP Co de Phone Number [facility] [place] [address] * (ABNORMAL) Sodium (12/26/2017 10:23 PM EDT) Sodium 147(H) 135 - 145 mmol/L [facility] Blood specimen (specimen) 12/26/2017 10:23 PM EDT 12/26/2017 10:29 PM EDT Narrative Resulting Agency Comment Spec In Lab José Miguel Maher MD CHEMISTRY ORDERABLES Performing Organization Address [facility]/ZIP Co de Phone Number [facility] [place] [address] * (ABNORMAL) Sodium (12/26/2017 10:03 AM EDT) Sodium 155(H) 135 - 145 mmol/L [facility] Blood specimen (specimen) 12/26/2017 10:03 AM EDT 12/26/2017 10:11 AM EDT Narrative Resulting Agency Comment Spec In Lab José Miguel Maher MD CHEMISTRY ORDERABLES Performing Organization Address City/[facility]/ZIP Co de Phone Number [facility] [place] [address] * (ABNORMAL) Sodium (12/26/2017 5:11 AM EDT) Sodium 154(H) 135 - 145 mmol/L [facility] Blood specimen (specimen) 12/26/2017 5:11 AM EDT 12/26/2017 5:19 AM EDT Narrative Resulting Agency Comment Spec In Lab José Miguel Maher MD CHEMISTRY ORDERABLES [facility] [place] [address] * XR Knee 3 Views Right (12/25/2017 2:26 PM EDT) Anatomical Region Laterality Modality Knee Right Digital Radiogra phy Narrative 12/25/2017 4:30 PM EDT EXAMINATION: XR KNEE 3 VIEWS RIGHT CLINICAL HISTORY: R knee pain with PT TECHNIQUE: 3 views COMPARISON: None FINDINGS: Bones: No fracture is present. Right knee joint: No knee effusion. Normal Patellofemoral alignment. Soft tissue: Normal. Impression No fracture or dislocation Procedure Note Park Dalal MD - 12/25/2017 EXAMINATION: XR KNEE 3 VIEWS RIGHT CLINICAL HISTORY: R knee pain with PT TECHNIQUE: 3 views COMPARISON: None FINDINGS: Bones: No fracture is present. Right knee joint: No knee effusion. Normal Patellofemoral alignment. Soft tissue: Normal. Impression No fracture or dislocation José Miguel Maher MD IMG DX ORDERABLES * Differential, Automated (12/25/2017 5:50 AM EDT) Neutrophil % 43.3 % [facility] Neutrophil Absolute 2.14 1.70 - 6.10 x10(3)/[facility] Lymph % 38.7 % [facility] Lymphocytes Abs 1.9 0.9 - 3.2 x10(3)/[facility] Monocyte % 9.3 % [facility] Monocyte Abs 0.5 0.3 - 0.9 x10(3)/[facility] Eos % 7.7 % [facility] Eosinophils Abs 0.4 0.0 - 0.4 x10(3)/[facility] Basophil % 0.6 % [facility] Baso Absolute 0.0 0.0 - 0.1 x10(3)/[facility] Immature Gran % 0.40 % [facility] Comment: Immature granulocytes(IG's)percentage and absolute count will include metamyelocytes, myelocytes, and promyelocytes. Blood smears from CBCs yielding IG's will be scanned manually for concordance. If this scan disagrees with the automated IG or if promyelocytes are noted, a manual differential will be performed. Immature Gran Absolute 0.02 0.00 - 0.04 x10(3)/[facility] Blood specimen (specimen) 12/25/2017 5:50 AM EDT 12/25/2017 6:08 AM EDT Narrative Resulting Agency Comment Spec In Lab José Miguel Maher MD HEMATOLOGY ORDERABLE S [facility] [place] [address] * (ABNORMAL) Hemogram (12/25/2017 5:50 AM EDT) White Blood Cell 4.9 4.0 - 9.5 x10(3)/mc L [facility] Red Blood Cell 4.84 4.58 - 5.54 x10(6)/mc L [facility] Hemoglobin 11.9(L) 13.7 - 16.5 gm/dL [facility] Hematocrit 36.4(L) 40.5 - 48.5 % [facility] Mean Cell Volume 75.2(L) 82.9 - 93.1 fL [facility] Mean Cell Hemoglobin 24.6(L) 27.5 - 32.1 pg [facility] Mean Cell Hemoglobin Concentration 32.7 32.0 - 35.7 gm/dL [facility] Platelet 313 145 - 357 x10(3)/mc L [facility] RDW Standard Deviation 45.6(H) 36.0 - 45.0 fL [facility] RDW coefficient of variation 17.0(H) 11.4 - 13.8 % [facility] Mean Platelet Volume 9.6 7.6 - 12.9 fL [facility] NRBC% auto 0.0 % [facility] NRBC Absolute 0.000 0.000 - 0.000 x10(3)/mc L [facility] Blood specimen (specimen) 12/25/2017 5:50 AM EDT 12/25/2017 6:08 AM EDT Narrative Resulting Agency Comment Spec In Lab José Miguel Maher MD HEMATOLOGY ORDERABLE S Performing Organization Address City/State/[facility] Co de Phone Number [facility] [place] [address] * (ABNORMAL) Basic Metabolic Panel (non-fasting) (12/25/2017 5:50 AM EDT) Glucose 107 65 - 199 mg/dL [facility] Comment:Diabetes: >=200 mg/d L plus symptoms Blood Urea Nitrogen 14 10 - 20 mg/dL [facility] Creatinine 0.63(L) 0.80 - 1.50 mg/dL [facility] Sodium 149(H) 135 - 145 mmol/L [facility] Potassium 3.6 3.5 - 5.0 mmol/L [facility] Comment: Please note: ??Patients with WBC >100,000 may have falsely elevated Potassium levels. ??For accurate Potassium quantification in these patients send serum separator tube (gold top) for subsequent determinations. ??Contact the Clinical Chemistry Laboratory if there are any questions. Chloride 108(H) 98 - 107 mmol/L [facility] Carbon Dioxide 25 22 - 31 mmol/L [facility] Anion Gap 16(H) 5 - 15 mmol/L [facility] Calcium 9.9 8.5 - 10.5 mg/dL [facility] Est Glomerular Filtration Rate 135 >=60 mL/min/1. 73 m?? [facility] Comment: The eGFR was calculated using the CKD-EPI equation. As with all creatinine based estimates of kidney function, eGFR values calculated with the CKD-EPI equation are not accurate in patients with acute kidney failure, extremes of body mass or the acutely ill. [email or web address] [email or web address] eGFR 157 >=60 mL/min/1. 73 m?? [facility] Comment: The eGFR was calculated using the CKD-EPI equation. As with all creatinine based estimates of kidney function, eGFR values calculated with the CKD-EPI equation are not accurate in patients with acute kidney failure, extremes of body mass or the acutely ill. [email or web address] [email or web address] TULSAnkf Blood specimen (specimen) 12/25/2017 5:50 AM EDT 12/25/2017 6:08 AM EDT Narrative Resulting Agency Comment Spec In Lab José Miguel Maher MD CHEMISTRY ORDERABLES Performing Organization Address [facility] Co de Phone Number [facility] [place] [address] * (ABNORMAL) Sodium (12/24/2017 12:19 AM EDT) Sodium 147(H) 135 - 145 mmol/L [facility] Blood specimen (specimen) 12/24/2017 12:19 AM EDT 12/24/2017 12:29 AM EDT Narrative Resulting Agency Comment Spec In Lab José Miguel Maher MD CHEMISTRY ORDERABLES Performing Organization Address [facility] Co de Phone Number [facility] [place] [address] * (ABNORMAL) Differential, Automated (12/23/2017 6:41 AM EDT) Neutrophil % 40.1 % [facility] Neutrophil Absolute 1.93 1.70 - 6.10 x10(3)/[facility] LABORATORY Lymph % 39.4 % [facility] Lymphocytes Abs 1.9 0.9 - 3.2 x10(3)/[facility] LABORATORY Monocyte % 11.6 % [facility] Monocyte Abs 0.6 0.3 - 0.9 x10(3)/[facility] LABORATORY Eos % 7.1 % [facility] Eosinophils Abs 0.3 0.0 - 0.4 x10(3)/[facility] LABORATORY Basophil % 0.8 % [facility] Baso Absolute 0.0 0.0 - 0.1 x10(3)/[facility] LABORATORY Immature Gran % 1.00 % [facility] Comment: Immature granulocytes(IG's)percentage and absolute count will include metamyelocytes, myelocytes, and promyelocytes. Blood smears from CBCs yielding IG's will be scanned manually for concordance. If this scan disagrees with the automated IG or if promyelocytes are noted, a manual differential will be performed. Immature Gran Absolute 0.05(H) 0.00 - 0.04 x10(3)/[facility] LABORATORY Blood specimen (specimen) 12/23/2017 6:41 AM EDT 12/23/2017 6:48 AM EDT Narrative Resulting Agency Comment Spec In Lab José Miguel Maher MD HEMATOLOGY ORDERABLE S [facility] [place] [address] * (ABNORMAL) Hemogram (12/23/2017 6:41 AM EDT) Pathologist [facility] White Blood Cell 4.8 4.0 - 9.5 x10(3)/[facility] LABORATORY Red Blood Cell 4.62 4.58 - 5.54 x10(6)/mc L [facility] Hemoglobin 10.6(L) 13.7 - 16.5 gm/dL [facility] Hematocrit 34.7(L) 40.5 - 48.5 % [facility] Mean Cell Volume 75.1(L) 82.9 - 93.1 [facility] LABORATORY Mean Cell Hemoglobin 22.9(L) 27.5 - 32.1 pg [facility] Mean Cell Hemoglobin Concentration 30.5(L) 32.0 - 35.7 gm/dL [facility] Platelet 286 145 - 357 x10(3)/mc L [facility] RDW Standard Deviation 45.8(H) 36.0 - 45.0 [facility] LABORATORY RDW coefficient of variation 17.0(H) 11.4 - 13.8 % [facility] Mean Platelet Volume 9.9 7.6 - 12.9 [facility] LAB[facility]ATORY NRBC% auto 0.0 % [facility] NRBC Absolute 0.000 0.000 - 0.000 x10(3)/mc L [facility] Blood specimen (specimen) 12/23/2017 6:41 AM EDT 12/23/2017 6:48 AM EDT Narrative Resulting Agency Comment Spec In Lab José Miguel Maher MD HEMATOLOGY ORDERABLE S [facility] [place] [address] * (ABNORMAL) Basic Metabolic Panel (non-fasting) (12/23/2017 6:41 AM EDT) Glucose 87 65 - 199 mg/dL [facility] Comment:Diabetes: >=200 mg/d L plus symptoms Blood Urea Nitrogen 14 10 - 20 mg/dL [facility] Creatinine 0.61(L) 0.80 - 1.50 mg/dL [facility] Sodium 149(H) 135 - 145 mmol/L [facility] Potassium 4.0 3.5 - 5.0 mmol/L [facility] Comment: Please note: ??Patients with WBC >100,000 may have falsely elevated Potassium levels. ??For accurate Potassium quantification in these patients send serum separator tube (gold top) for subsequent determinations. ??Contact the Clinical Chemistry Laboratory if there are any questions. Chloride 111(H) 98 - 107 mmol/L [facility] Carbon Dioxide 24 22 - 31 mmol/L [facility] Anion Gap 14 5 - 15 mmol/L [facility] Calcium 9.6 8.5 - 10.5 mg/dL [facility] Est Glomerular Filtration Rate 137 >=60 mL/min/1. 73 m?? [facility] Comment: The eGFR was calculated using the CKD-EPI equation. As with all creatinine based estimates of kidney function, eGFR values calculated with the CKD-EPI equation are not accurate in patients with acute kidney failure, extremes of body mass or the acutely ill. [email or web address] [email or web address] eGFR 159 >=60 mL/min/1. 73 m?? [facility] Comment: The eGFR was calculated using the CKD-EPI equation. As with all creatinine based estimates of kidney function, eGFR values calculated with the CKD-EPI equation are not accurate in patients with acute kidney failure, extremes of body mass or the acutely ill. [email or web address] [email or web address] Blood specimen (specimen) 12/23/2017 6:41 AM EDT 12/23/2017 6:48 AM EDT Narrative Resulting Agency Comment Spec In Lab José Miguel Maher MD CHEMISTRY ORDERABLES [facility] [place] [address] * Sodium (12/21/2017 8:00 PM EDT) Sodium 143 135 - 145 mmol/L [facility] Blood specimen (specimen) 12/21/2017 8:00 PM EDT 12/21/2017 8:06 PM EDT Narrative Resulting Agency Comment Spec In Lab José Miguel Maher MD CHEMISTRY ORDERABLES Performing Organization Address City/[facility]/ZIP Co de Phone Number [facility] [place] [address] * Scan, Peripheral Blood (12/21/2017 10:18 AM EDT) Pathologist [facility] Plat estimate Normal [facility] RBC Morphology Abnormal [facility] Microcyte gtr than 10 /HPF [facility] Tear Cell 1-5 /HPF [facility] Blood specimen (specimen) 12/21/2017 10:18 AM EDT 12/21/2017 10:38 AM EDT Narrative Resulting Agency Comment Spec In Lab José Miguel Maher MD HEMATOLOGY ORDERABLE S Performing Organization Address City[facility] Hospital/ZIP Co de Phone Number [facility] [place] [address] * (ABNORMAL) Differential, Automated (12/21/2017 10:18 AM EDT) [facility] Neutrophil % 65.7 % [facility] Neutrophil Absolute 5.47 1.70 - 6.10 x10(3)/mc L [facility] Lymph % 19.0 % [facility] Lymphocytes Abs 1.6 0.9 - 3.2 x10(3)/mc L [facility] Monocyte % 9.0 % [facility] Monocyte Abs 0.8 0.3 - 0.9 x10(3)/mc L [facility] Eos % 4.6 % [facility] Eosinophils Abs 0.4 0.0 - 0.4 x10(3)/mc L [facility] Basophil % 0.7 % [facility] Baso Absolute 0.1 0.0 - 0.1 x10(3)/mc L [facility] Immature Gran % 1.00 % [facility] Comment: Immature granulocytes(IG's)percentage and absolute count will include metamyelocytes, myelocytes, and promyelocytes. Blood smears from CBCs yielding IG's will be scanned manually for concordance. If this scan disagrees with the automated IG or if promyelocytes are noted, a manual differential will be performed. Immature Gran Absolute 0.08(H) 0.00 - 0.04 x10(3)/ L [facility] Blood specimen (specimen) 12/21/2017 10:18 AM EDT 12/21/2017 10:38 AM EDT Narrative Resulting Agency Comment Spec In Lab José Miguel Maher MD HEMATOLOGY ORDERABLE S Performing Organization Address City/State/[facility] Co de Phone Number [facility] [place] [address] * (ABNORMAL) Hemogram (12/21/2017 10:18 AM EDT) White Blood Cell 8.3 4.0 - 9.5 x10(3)/ L [facility] Red Blood Cell 5.42 4.58 - 5.54 x10(6)/mc L [facility] Hemoglobin 12.5(L) 13.7 - 16.5 gm/dL [facility] Hematocrit 40.5 40.5 - 48.5 % [facility] Mean Cell Volume 74.7(L) 82.9 - 93.1 fL [facility] Mean Cell Hemoglobin 23.1(L) 27.5 - 32.1 pg [facility] Mean Cell Hemoglobin Concentration 30.9(L) 32.0 - 35.7 gm/dL [facility] Platelet 333 145 - 357 x10(3)/[facility]AT[facility] RDW Standard Deviation 45.7(H) 36.0 - 45.0 fL [facility] RDW coefficient of variation 17.3(H) 11.4 - 13.8 % [facility] Mean Platelet Volume 9.9 7.6 - 12.9 fL [facility] NRBC% auto 0.0 % [facility] NRBC Absolute 0.000 0.000 - 0.000 x10(3)/mc L [facility] Blood specimen (specimen) 12/21/2017 10:18 AM EDT 12/21/2017 10:38 AM EDT Narrative Resulting Agency Comment Spec In Lab José Miguel Maher MD HEMATOLOGY ORDERABLE S [facility] [place] [address] * (ABNORMAL) Basic Metabolic Panel (non-fasting) (12/21/2017 10:18 AM EDT) Glucose 134 65 - 199 mg/dL [facility] Comment:Diabetes: >=200 mg/d L plus symptoms Blood Urea Nitrogen 15 10 - 20 mg/dL [facility] Creatinine 0.82 0.80 - 1.50 mg/dL [facility] Sodium 147(H) 135 - 145 mmol/L [facility] Potassium 4.2 3.5 - 5.0 mmol/L [facility] Comment: Please note: ??Patients with WBC >100,000 may have falsely elevated Potassium levels. ??For accurate Potassium quantification in these patients send serum separator tube (gold top) for subsequent determinations. ??Contact the Clinical Chemistry Laboratory if there are any questions. Chloride 109(H) 98 - 107 mmol/L [facility] Carbon Dioxide 22 22 - 31 mmol/L [facility] Anion Gap 16(H) 5 - 15 mmol/L [facility] Calcium 10.2 8.5 - 10.5 mg/dL [facility] Est Glomerular Filtration Rate 121 >=60 mL/min/1. 73 m?? [facility] Comment: The eGFR was calculated using the CKD-EPI equation. As with all creatinine based estimates of kidney function, eGFR values calculated with the CKD-EPI equation are not accurate in patients with acute kidney failure, extremes of body mass or the acutely ill. [email or web address] [email or web address] eGFR 140 >=60 mL/min/1. 73 m?? [facility] Comment: The eGFR was calculated using the CKD-EPI equation. As with all creatinine based estimates of kidney function, eGFR values calculated with the CKD-EPI equation are not accurate in patients with acute kidney failure, extremes of body mass or the acutely ill. [email or web address] [email or web address] Blood specimen (specimen) 12/21/2017 10:18 AM EDT 12/21/2017 10:38 AM EDT Narrative Resulting Agency Comment Spec In Lab José Miguel Maher MD CHEMISTRY ORDERABLES [facility] [place] [id number] * (ABNORMAL) Electrolytes panel (12/16/2017 9:01 AM EDT) Sodium 143 135 - 145 mmol/L [facility] Potassium 3.8 3.5 - 5.0 mmol/L [facility] Comment: Please note: ??Patients with WBC >100,000 may have falsely elevated Potassium levels. ??For accurate Potassium quantification in these patients send serum separator tube (gold top) for subsequent determinations. ??Contact the Clinical Chemistry Laboratory if there are any questions. Chloride 103 98 - 107 mmol/L [facility] Carbon Dioxide 23 22 - 31 mmol/L [facility] Anion Gap 17(H) 5 - 15 mmol/L [facility] Blood specimen (specimen) 12/16/2017 9:01 AM EDT 12/16/2017 9:12 AM EDT Narrative Resulting Agency Comment Spec In Lab Fran Gilliam MD CHEMISTRY ORDERABL ES Performing Organization Address [facility] Co de Phone Number [facility] [place] [address] * (ABNORMAL) Basic Metabolic Panel (non-fasting) (12/14/2017 6:09 PM EDT) Glucose 121 65 - 199 mg/dL [facility] Comment:Diabetes: >=200 mg/d L plus symptoms Blood Urea Nitrogen 11 10 - 20 mg/dL [facility] Creatinine 0.86 0.80 - 1.50 mg/dL [facility] Sodium 145 135 - 145 mmol/L [facility] Potassium 4.1 3.5 - 5.0 mmol/L [facility] Comment: Please note: ??Patients with WBC >100,000 may have falsely elevated Potassium levels. ??For accurate Potassium quantification in these patients send serum separator tube (gold top) for subsequent determinations. ??Contact the Clinical Chemistry Laboratory if there are any questions. Chloride 105 98 - 107 mmol/L [facility] Carbon Dioxide 21(L) 22 - 31 mmol/L [facility] Anion Gap 19(H) 5 - 15 mmol/L [facility] Calcium 8.9 8.5 - 10.5 mg/dL [facility] Est Glomerular Filtration Rate >60 >=60 [facility] Comment: The reported eGFR should be multiplied by 1.2 for patients. The MDRD is not an appropriate measure of renal function for patients with body mass extremes or in patients with acute kidney failure. [email or web address] Blood specimen (specimen) 12/14/2017 6:09 PM EDT 12/14/2017 6:24 PM EDT Narrative Resulting Agency Comment Spec In Lab Fran Gilliam MD CHEMISTRY ORDERABL ES Performing Organization Address [facility] Co de Phone Number [facility] [place] [address] * Urine Hold (12/10/2017 11:09 AM EDT) Hold, Urine Sample in lab. [facility] Urine specimen (specimen) Urine / Unknown 12/10/2017 11:09 AM EDT 12/10/2017 11:58 AM EDT Kemi Emerald Marya SANTANA URINE ORDERABLES [facility] [place] [address] * Urinalysis with reflex Culture (12/10/2017 11:07 AM EDT) Glucose, Urine Dipstick Negative Negative mg/dL [facility] Protein, Urine Dipstick Negative Negative mg/dL [facility] Bilirubin, Urine Dipstick Negative Negative mg/dL [facility] Comment: Clinical correlation required for positive Urine Bilirubin results as false positive may occur with some drugs and drug related products. If a false positive is suspected a serum total bilirubin should be considered if clinically indicated. Urobilinogen, Urine Dipstick Normal Normal mg/dL [facility] pH, Urn (dipstick) 6.0 5.0 - 8.0 [facility] Blood, Urine Dipstick Negative Negative mg/dL [facility] Ketone, Urine Dipstick Negative Negative mg/dL [facility] Nitrite, Urine Dipstick Negative Negative [facility] Leukocytes, Urine Dipstick Negative Negative [facility] Appearance, Urine Dipstick Clear Clear [facility] Specific [place] Urine Automated 1.015 1.002 - 1.030 [facility] Color, Urine Dipstick Straw Yellow [facility] Reflex to Culture No [facility] Urine specimen obtained by clean catch procedure (specimen) 12/10/2017 11:07 AM EDT 12/10/2017 11:58 AM EDT Narrative Resulting Agency Comment Spec In Lab Kemi Camp APRN URINE ORDERABLES [facility] [place] [address] * (ABNORMAL) BMP w/fasting Glucose (12/09/2017 4:07 AM EDT) Glucose Fasting 90 65 - 99 mg/dL [facility] Comment: ?Fasting* Glucose Interpretive Criteria Normal ?65-99 mg/dL Impaired Fasting glucose ?100-125 mg/dL Consistent with Diabetes Mellitus ? >or= 126 mg/dL *Fasting is defined as no caloric intake for at least 8 hours In the absence of unequivocal hyperglycemia a plasma glucose value of >or= 126 mg/dL should be repeated on a subsequent day. Diagnosis and Classification of Diabetes Mellitus, Position Statement from the [place] [employer]. ??Diabetes Care, Volume 33, Supplement 1, Jul 2009 Blood Urea Nitrogen 20 10 - 20 mg/dL [facility] Creatinine 0.74(L) 0.80 - 1.50 mg/dL [facility] Sodium 139 135 - 145 mmol/L [facility] Potassium 3.8 3.5 - 5.0 mmol/L [facility] Comment: Please note: ??Patients with WBC >100,000 may have falsely elevated Potassium levels. ??For accurate Potassium quantification in these patients send serum separator tube (gold top) for subsequent determinations. ??Contact the Clinical Chemistry Laboratory if there are any questions. Chloride 102 98 - 107 mmol/L [facility] Carbon Dioxide 22 22 - 31 mmol/L [facility] Anion Gap 15 5 - 15 mmol/L [facility] Calcium 9.0 8.5 - 10.5 mg/dL [facility] Est Glomerular Filtration Rate >60 >=60 [facility] Comment: The reported eGFR should be multiplied by 1.2 for patients. The MDRD is not an appropriate measure of renal function for patients with body mass extremes or in patients with acute kidney failure. [email or web address] [email or web address] Blood specimen (specimen) 12/09/2017 4:07 AM EDT 12/09/2017 4:24 AM EDT Narrative Resulting Agency Comment Spec In Lab Danay Rajan MD CHEMISTRY ORDERAB LES [facility] [place] [address] * (ABNORMAL) Differential, Automated (12/06/2017 7:48 AM EDT) Neutrophil % 37.8 % [facility] Neutrophil Absolute 1.75 1.70 - 6.10 x10(3)/mc L [facility] Lymph % 40.4 % [facility] Lymphocytes Abs 1.9 0.9 - 3.2 x10(3)/mc L [facility] Monocyte % 14.3 % [facility] Monocyte Abs 0.7 0.3 - 0.9 x10(3)/mc L [facility] Eos % 5.8 % [facility] Eosinophils Abs 0.3 0.0 - 0.4 x10(3)/mc L [facility] Basophil % 0.6 % [facility] Baso Absolute 0.0 0.0 - 0.1 x10(3)/mc L [facility] Immature Gran % 1.10 % [facility] Comment: Immature granulocytes(IG's)percentage and absolute count will include metamyelocytes, myelocytes, and promyelocytes. Blood smears from CBCs yielding IG's will be scanned manually for concordance. If this scan disagrees with the automated IG or if promyelocytes are noted, a manual differential will be performed. Immature Gran Absolute 0.05(H) 0.00 - 0.04 x10(3)/[facility] LAB[facility]AT[facility] Blood specimen (specimen) 12/06/2017 7:48 AM EDT 12/06/2017 7:53 AM EDT Narrative Resulting Agency Comment Spec In Lab Constantino Courtney MD HEMATOLOGY ORDERABLE S [facility] [place] [address] * (ABNORMAL) Hemogram (12/06/2017 7:48 AM EDT) White Blood Cell 4.6 4.0 - 9.5 x10(3)/[facility] LABORATORY Red Blood Cell 5.03 4.58 - 5.54 x10(6)/[facility] Hemoglobin 11.7(L) 13.7 - 16.5 gm/dL [facility] Hematocrit 38.1(L) 40.5 - 48.5 % [facility] Mean Cell Volume 75.7(L) 82.9 - 93.1 [facility] LABORATORY Mean Cell Hemoglobin 23.3(L) 27.5 - 32.1 pg [facility] Mean Cell Hemoglobin Concentration 30.7(L) 32.0 - 35.7 gm/dL [facility] Platelet 291 145 - 357 x10(3)/[facility] LABORATORY RDW Standard Deviation 45.1(H) 36.0 - 45.0 [facility] LAB[facility]ATORY RDW coefficient of variation 16.8(H) 11.4 - 13.8 % [facility] Mean Platelet Volume 9.5 7.6 - 12.9 [facility] LABORATORY NRBC% auto 0.0 % [facility] NRBC Absolute 0.000 0.000 - 0.000 x10(3)/[facility] LAB[facility] Blood specimen (specimen) 12/06/2017 7:48 AM EDT 12/06/2017 7:53 AM EDT Narrative Resulting Agency Comment Spec In Lab Constantino Courtney MD HEMATOLOGY ORDERABLE S [facility] [place] [address] * (ABNORMAL) Basic Metabolic Panel (non-fasting) (12/06/2017 7:48 AM EDT) Glucose 94 65 - 199 mg/dL [facility] Comment:Diabetes: >=200 mg/d L plus symptoms Blood Urea Nitrogen 23(H) 10 - 20 mg/dL [facility] Creatinine 0.64(L) 0.80 - 1.50 mg/dL [facility] Sodium 143 135 - 145 mmol/L [facility] Potassium 3.7 3.5 - 5.0 mmol/L [facility] Comment: Please note: ??Patients with WBC >100,000 may have falsely elevated Potassium levels. ??For accurate Potassium quantification in these patients send serum separator tube (gold top) for subsequent determinations. ??Contact the Clinical Chemistry Laboratory if there are any questions. Chloride 104 98 - 107 mmol/L [facility] Carbon Dioxide 24 22 - 31 mmol/L [facility] Anion Gap 15 5 - 15 mmol/L [facility] Calcium 8.9 8.5 - 10.5 mg/dL [facility] Est Glomerular Filtration Rate >60 >=60 [facility] Comment: The reported eGFR should be multiplied by 1.2 for patients. The MDRD is not an appropriate measure of renal function for patients with body mass extremes or in patients with acute kidney failure. [email or web address] Blood specimen (specimen) 12/06/2017 7:48 AM EDT 12/06/2017 7:53 AM EDT Narrative Resulting Agency Comment Spec In Lab Constantino Courtney MD CHEMISTRY ORDERABLES Performing Organization Address [facility] Co de Phone Number [facility] [place] [address] * EKG 12 Lead (12/05/2017 5:29 PM EDT) Ventricular rate 110 BPM MUSE SYSTEM Atrial Rate 110 BPM MUSE SYSTEM P-R Interval 142 ms MUSE SYSTEM QRS Duration 94 ms MUSE SYSTEM Q-T Interval 334 ms MUSE SYSTEM QTC Calculated (Bezet) 452 ms MUSE SYSTEM Calculated P [place] 33 degrees MUSE SYSTEM Calculated R [place] 57 degrees MUSE SYSTEM Calculated T [place] 60 degrees MUSE SYSTEM INTERPRETATION Sinus tachycardia Nonspecific ST/T wave abnormality Abnormal ECG When compared with ECG of 04-SEP-2017 22:30, Rate slower Confirmed by MD Oh, Sukhi Walker ([id number]) on 12/06/2017 10:46:47 AM MUSE SYSTEM 12/05/2017 5:29 PM EDT 12/06/2017 10:46 AM EDT Constantino Courtney MD ECG ORDERABLES Performing Organization Address [facility] Co de Phone Number MUSE SYSTEM * (ABNORMAL) Electrolytes panel (12/05/2017 1:17 PM EDT) Sodium 143 135 - 145 mmol/L [facility] Potassium 4.0 3.5 - 5.0 mmol/L [facility] Comment: Please note: ??Patients with WBC >100,000 may have falsely elevated Potassium levels. ??For accurate Potassium quantification in these patients send serum separator tube (gold top) for subsequent determinations. ??Contact the Clinical Chemistry Laboratory if there are any questions. Chloride 105 98 - 107 mmol/L [facility] Carbon Dioxide 21(L) 22 - 31 mmol/L [facility] Anion Gap 17(H) 5 - 15 mmol/L [facility] Blood specimen (specimen) 12/05/2017 1:17 PM EDT 12/05/2017 1:40 PM EDT Narrative Resulting Agency Comment Spec In Lab Fran Gilliam MD CHEMISTRY ORDERABL ES Performing Organization Address [facility] Co de Phone Number [facility] [place] [address] * Electrolytes panel (12/04/2017 3:16 PM EDT) Sodium 142 135 - 145 mmol/L [facility] Potassium 4.6 3.5 - 5.0 mmol/L [facility] Comment: result [id number] Please note: ??Patients with WBC >100,000 may have falsely elevated Potassium levels. ??For accurate Potassium quantification in these patients send serum separator tube (gold top) for subsequent determinations. ??Contact the Clinical Chemistry Laboratory if there are any questions. Chloride 106 98 - 107 mmol/L [facility] Carbon Dioxide 22 22 - 31 mmol/L [facility] Anion Gap 14 5 - 15 mmol/L [facility] Blood specimen (specimen) 12/04/2017 3:16 PM EDT 12/04/2017 3:27 PM EDT Narrative Resulting Agency Comment Spec In Lab Fran Gilliam MD CHEMISTRY ORDERABL ES Performing Organization Address [facility] Co de Phone Number [facility] [place] [address] * (ABNORMAL) Electrolytes panel (12/04/2017 6:27 AM EDT) Sodium 141 135 - 145 mmol/L [facility] Potassium 3.4(L) 3.5 - 5.0 mmol/L [facility] Comment: Please note: ??Patients with WBC >100,000 may have falsely elevated Potassium levels. ??For accurate Potassium quantification in these patients send serum separator tube (gold top) for subsequent determinations. ??Contact the Clinical Chemistry Laboratory if there are any questions. Chloride 102 98 - 107 mmol/L [facility] Carbon Dioxide 25 22 - 31 mmol/L [facility] Anion Gap 14 5 - 15 mmol/L [facility] Blood specimen (specimen) 12/04/2017 6:27 AM EDT 12/04/2017 6:39 AM EDT Narrative Resulting Agency Comment Spec In Lab Fran Gilliam MD CHEMISTRY ORDERABL ES [facility] [place] [address] * (ABNORMAL) Basic Metabolic Panel (non-fasting) (12/03/2017 1:15 PM EDT) Glucose 96 65 - 199 mg/dL [facility] Comment:Diabetes: >=200 mg/d L plus symptoms Blood Urea Nitrogen 24(H) 10 - 20 mg/dL [facility] Creatinine 0.84 0.80 - 1.50 mg/dL [facility] Sodium 142 135 - 145 mmol/L [facility] Potassium 3.9 3.5 - 5.0 mmol/L [facility] Comment: Please note: ??Patients with WBC >100,000 may have falsely elevated Potassium levels. ??For accurate Potassium quantification in these patients send serum separator tube (gold top) for subsequent determinations. ??Contact the Clinical Chemistry Laboratory if there are any questions. Chloride 105 98 - 107 mmol/L [facility] Carbon Dioxide 20(L) 22 - 31 mmol/L [facility] Anion Gap 17(H) 5 - 15 mmol/L [facility] Calcium 9.2 8.5 - 10.5 mg/dL [facility] Est Glomerular Filtration Rate >60 >=60 [facility] Comment: The reported eGFR should be multiplied by 1.2 for patients. The MDRD is not an appropriate measure of renal function for patients with body mass extremes or in patients with acute kidney failure. [email or web address] Blood specimen (specimen) 12/03/2017 1:15 PM EDT 12/03/2017 1:27 PM EDT Narrative Resulting Agency Comment Spec In Lab Fran Gilliam MD CHEMISTRY ORDERABL ES Performing Organization Address [facility] Co de Phone Number [facility] [place] [address] * (ABNORMAL) Electrolytes panel (12/03/2017 5:48 AM EDT) Sodium 144 135 - 145 mmol/L [facility] Potassium 3.5 3.5 - 5.0 mmol/L [facility] Comment: Please note: ??Patients with WBC >100,000 may have falsely elevated Potassium levels. ??For accurate Potassium quantification in these patients send serum separator tube (gold top) for subsequent determinations. ??Contact the Clinical Chemistry Laboratory if there are any questions. Chloride 106 98 - 107 mmol/L [facility] Carbon Dioxide 22 22 - 31 mmol/L [facility] Anion Gap 16(H) 5 - 15 mmol/L [facility] Blood specimen (specimen) 12/03/2017 5:48 AM EDT 12/03/2017 6:07 AM EDT Narrative Resulting Agency Comment Spec In Lab Fran Gilliam MD CHEMISTRY ORDERABL ES Performing Organization Address [facility] Co de Phone Number [facility] [place] [address] * (ABNORMAL) Electrolytes panel (12/02/2017 10:03 PM EDT) Sodium 146(H) 135 - 145 mmol/L [facility] Potassium 3.9 3.5 - 5.0 mmol/L [facility] Comment: Please note: ??Patients with WBC >100,000 may have falsely elevated Potassium levels. ??For accurate Potassium quantification in these patients send serum separator tube (gold top) for subsequent determinations. ??Contact the Clinical Chemistry Laboratory if there are any questions. Chloride 110(H) 98 - 107 mmol/L [facility] Carbon Dioxide 22 22 - 31 mmol/L [facility] Anion Gap 14 5 - 15 mmol/L [facility] Blood specimen (specimen) 12/02/2017 10:03 PM EDT 12/02/2017 10:11 PM EDT Narrative Resulting Agency Comment Spec In Lab Fran Gilliam MD CHEMISTRY ORDERABL ES Performing Organization Address [facility] de Phone Number [facility] [place] [address] * (ABNORMAL) Sodium (12/02/2017 11:40 AM EDT) Sodium 150(H) 135 - 145 mmol/L [facility] Blood specimen (specimen) 12/02/2017 11:40 AM EDT 12/02/2017 11:59 AM EDT Narrative Resulting Agency Comment Spec In Lab Fran Gilliam MD CHEMISTRY ORDERABL ES Performing Organization Address [facility] de Phone Number [facility] [place] [address] * (ABNORMAL) Electrolytes panel (12/02/2017 7:52 AM EDT) Sodium 153(H) 135 - 145 mmol/L [facility] Potassium 3.7 3.5 - 5.0 mmol/L [facility] Comment: Please note: ??Patients with WBC >100,000 may have falsely elevated Potassium levels. ??For accurate Potassium quantification in these patients send serum separator tube (gold top) for subsequent determinations. ??Contact the Clinical Chemistry Laboratory if there are any questions. Chloride 114(H) 98 - 107 mmol/L [facility] Carbon Dioxide 22 22 - 31 mmol/L [facility] Anion Gap 17(H) 5 - 15 mmol/L [facility] Blood specimen (specimen) 12/02/2017 7:52 AM EDT 12/02/2017 7:58 AM EDT Narrative Resulting Agency Comment Spec In Lab Fran Gilliam MD CHEMISTRY ORDERABL ES Performing Organization Address [facility]/ZIP Co de Phone Number [facility] [place] [address] * (ABNORMAL) Basic Metabolic Panel (non-fasting) (12/01/2017 9:43 PM EDT) Glucose 132 65 - 199 mg/dL [facility] Comment:Diabetes: >=200 mg/d L plus symptoms Blood Urea Nitrogen 23(H) 10 - 20 mg/dL [facility] Creatinine 0.92 0.80 - 1.50 mg/dL [facility] Sodium 148(H) 135 - 145 mmol/L [facility] Potassium 3.6 3.5 - 5.0 mmol/L [facility] Comment: Please note: ??Patients with WBC >100,000 may have falsely elevated Potassium levels. ??For accurate Potassium quantification in these patients send serum separator tube (gold top) for subsequent determinations. ??Contact the Clinical Chemistry Laboratory if there are any questions. Chloride 111(H) 98 - 107 mmol/L [facility] Carbon Dioxide 25 22 - 31 mmol/L [facility] Anion Gap 12 5 - 15 mmol/L [facility] Calcium 8.6 8.5 - 10.5 mg/dL [facility] Est Glomerular Filtration Rate >60 >=60 [facility] Comment: The reported eGFR should be multiplied by 1.2 for patients. The MDRD is not an appropriate measure of renal function for patients with body mass extremes or in patients with acute kidney failure. [email or web address] [email or web address] Blood specimen (specimen) 12/01/2017 9:43 PM EDT 12/01/2017 9:48 PM EDT Narrative Resulting Agency Comment Spec In Lab Fran Gilliam MD CHEMISTRY ORDERABL ES Performing Organization Address City/[facility]/ZIP Co de Phone Number [facility] [place] [address] * (ABNORMAL) Basic Metabolic Panel (non-fasting) (12/01/2017 11:27 AM EDT) Glucose 99 65 - 199 mg/dL [facility] Comment:Diabetes: >=200 mg/d L plus symptoms Blood Urea Nitrogen 21(H) 10 - 20 mg/dL [facility] Creatinine 1.03 0.80 - 1.50 mg/dL [facility] Sodium 151(H) 135 - 145 mmol/L [facility] Potassium 4.0 3.5 - 5.0 mmol/L [facility] Comment: Please note: ??Patients with WBC >100,000 may have falsely elevated Potassium levels. ??For accurate Potassium quantification in these patients send serum separator tube (gold top) for subsequent determinations. ??Contact the Clinical Chemistry Laboratory if there are any questions. Chloride 114(H) 98 - 107 mmol/L [facility] Carbon Dioxide 24 22 - 31 mmol/L [facility] Anion Gap 13 5 - 15 mmol/L [facility] Calcium 9.3 8.5 - 10.5 mg/dL [facility] Est Glomerular Filtration Rate >60 >=60 [facility] Comment: The reported eGFR should be multiplied by 1.2 for patients. The MDRD is not an appropriate measure of renal function for patients with body mass extremes or in patients with acute kidney failure. [email or web address] [email or web address] Blood specimen (specimen) 12/01/2017 11:27 AM EDT 12/01/2017 11:33 AM EDT Narrative Resulting Agency Comment Spec In Lab Fran Gilliam MD CHEMISTRY ORDERABL ES [facility] [place] [address] * T4, free (11/28/2017 10:52 AM EDT) Free T4 0.98 0.93 - 1.70 ng/dL [facility] Blood specimen (specimen) 11/28/2017 10:52 AM EDT 11/28/2017 11:07 AM EDT Narrative Resulting Agency Comment Spec In Lab Yadi Mccauley MD CHEMISTRY ORDERAB LES [facility] [place] [address] * Basic Metabolic Panel (non-fasting) (11/26/2017 5:49 AM EDT) Glucose 84 65 - 199 mg/dL [facility] Comment:Diabetes: >=200 mg/d L plus symptoms Blood Urea Nitrogen 13 10 - 20 mg/dL [facility] Creatinine 0.80 0.80 - 1.50 mg/dL [facility] Sodium 143 135 - 145 mmol/L [facility] Potassium 3.7 3.5 - 5.0 mmol/L [facility] Comment: Please note: ??Patients with WBC >100,000 may have falsely elevated Potassium levels. ??For accurate Potassium quantification in these patients send serum separator tube (gold top) for subsequent determinations. ??Contact the Clinical Chemistry Laboratory if there are any questions. Chloride 105 98 - 107 mmol/L [facility] Carbon Dioxide 26 22 - 31 mmol/L [facility] Anion Gap 12 5 - 15 mmol/L [facility] Calcium 9.2 8.5 - 10.5 mg/dL [facility] Est Glomerular Filtration Rate >60 >=60 [facility] Comment: The reported eGFR should be multiplied by 1.2 for patients. The MDRD is not an appropriate measure of renal function for patients with body mass extremes or in patients with acute kidney failure. [email or web address] [email or web address] Blood specimen (specimen) 11/26/2017 5:49 AM EDT 11/26/2017 6:03 AM EDT Narrative Resulting Agency Comment Spec In Lab Ren Sanchez III, MD CHEMISTRY ORDERABLES [facility] [place] [address] * (ABNORMAL) Basic Metabolic Panel (non-fasting) (11/23/2017 9:53 AM EDT) Glucose 116 65 - 199 mg/dL [facility] Comment:Diabetes: >=200 mg/d L plus symptoms Blood Urea Nitrogen 11 10 - 20 mg/dL [facility] Creatinine 1.06 0.80 - 1.50 mg/dL [facility] Sodium 142 135 - 145 mmol/L [facility] Potassium 3.9 3.5 - 5.0 mmol/L [facility] Comment: Please note: ??Patients with WBC >100,000 may have falsely elevated Potassium levels. ??For accurate Potassium quantification in these patients send serum separator tube (gold top) for subsequent determinations. ??Contact the Clinical Chemistry Laboratory if there are any questions. Chloride 106 98 - 107 mmol/L [facility] Carbon Dioxide 21(L) 22 - 31 mmol/L [facility] Anion Gap 15 5 - 15 mmol/L [facility] Calcium 9.1 8.5 - 10.5 mg/dL [facility] Est Glomerular Filtration Rate >60 >=60 [facility] Comment: The reported eGFR should be multiplied by 1.2 for patients. The MDRD is not an appropriate measure of renal function for patients with body mass extremes or in patients with acute kidney failure. [email or web address] [email or web address] Blood specimen (specimen) 11/23/2017 9:53 AM EDT 11/23/2017 10:10 AM EDT Narrative Resulting Agency Comment Spec In Lab Crista Aguilar MD CHEMISTRY ORDERABLE S Performing Organization Address City/[facility]/ZIP Co de Phone Number [facility] [place] [address] * Basic Metabolic Panel (non-fasting) (11/22/2017 11:05 AM EDT) Glucose 106 65 - 199 mg/dL [facility] Comment:Diabetes: >=200 mg/d L plus symptoms Blood Urea Nitrogen 14 10 - 20 mg/dL [facility] Creatinine 0.84 0.80 - 1.50 mg/dL [facility] Sodium 140 135 - 145 mmol/L [facility] Potassium 4.0 3.5 - 5.0 mmol/L [facility] Comment: Please note: ??Patients with WBC >100,000 may have falsely elevated Potassium levels. ??For accurate Potassium quantification in these patients send serum separator tube (gold top) for subsequent determinations. ??Contact the Clinical Chemistry Laboratory if there are any questions. Chloride 101 98 - 107 mmol/L [facility] Carbon Dioxide 25 22 - 31 mmol/L [facility] Anion Gap 14 5 - 15 mmol/L [facility] Calcium 9.2 8.5 - 10.5 mg/dL [facility] Est Glomerular Filtration Rate >60 >=60 [facility] Comment: The reported eGFR should be multiplied by 1.2 for patients. The MDRD is not an appropriate measure of renal function for patients with body mass extremes or in patients with acute kidney failure. [email or web address] [email or web address] Blood specimen (specimen) 11/22/2017 11:05 AM EDT 11/22/2017 11:14 AM EDT Narrative Resulting Agency Comment Spec In Lab Crista Aguilar MD CHEMISTRY ORDERABLE S Performing Organization Address [facility]/ZIP Co de Phone Number [facility] [place] [address] * (ABNORMAL) T4, free (11/22/2017 11:05 AM EDT) Free T4 0.81(L) 0.93 - 1.70 ng/dL [facility] Blood specimen (specimen) 11/22/2017 11:05 AM EDT 11/22/2017 11:14 AM EDT Narrative Resulting Agency Comment Spec In Lab Yadi Mccauley MD CHEMISTRY ORDERAB LES [facility] [place] [address] * (ABNORMAL) Basic Metabolic Panel (non-fasting) (11/19/2017 5:00 PM EDT) Pathologist [facility] Glucose 113 65 - 199 mg/dL [facility] Comment:Diabetes: >=200 mg/d L plus symptoms Blood Urea Nitrogen 12 10 - 20 mg/dL [facility] Creatinine 0.70(L) 0.80 - 1.50 mg/dL [facility] Sodium 134(L) 135 - 145 mmol/L [facility] Potassium 4.2 3.5 - 5.0 mmol/L [facility] Comment: Please note: ??Patients with WBC >100,000 may have falsely elevated Potassium levels. ??For accurate Potassium quantification in these patients send serum separator tube (gold top) for subsequent determinations. ??Contact the Clinical Chemistry Laboratory if there are any questions. Chloride 96(L) 98 - 107 mmol/L [facility] Carbon Dioxide 21(L) 22 - 31 mmol/L [facility] Anion Gap 17(H) 5 - 15 mmol/L [facility] Calcium 8.7 8.5 - 10.5 mg/dL [facility] Est Glomerular Filtration Rate >60 >=60 [facility] Comment: The reported eGFR should be multiplied by 1.2 for patients. The MDRD is not an appropriate measure of renal function for patients with body mass extremes or in patients with acute kidney failure. [email or web address] [email or web address] Blood specimen (specimen) 11/19/2017 5:00 PM EDT 11/19/2017 5:06 PM EDT Narrative Resulting Agency Comment Spec In Lab Crista Aguilar MD CHEMISTRY ORDERABLE S [facility] [place] [address] * (ABNORMAL) Basic Metabolic Panel (non-fasting) (11/19/2017 5:52 AM EDT) Glucose 85 65 - 199 mg/dL [facility] Comment:Diabetes: >=200 mg/d L plus symptoms Blood Urea Nitrogen 11 10 - 20 mg/dL [facility] Creatinine 0.79(L) 0.80 - 1.50 mg/dL [facility] Sodium 132(L) 135 - 145 mmol/L [facility] Potassium 3.7 3.5 - 5.0 mmol/L [facility] Comment: Please note: ??Patients with WBC >100,000 may have falsely elevated Potassium levels. ??For accurate Potassium quantification in these patients send serum separator tube (gold top) for subsequent determinations. ??Contact the Clinical Chemistry Laboratory if there are any questions. Chloride 93(L) 98 - 107 mmol/L [facility] Carbon Dioxide 24 22 - 31 mmol/L [facility] Anion Gap 15 5 - 15 mmol/L [facility] Calcium 8.9 8.5 - 10.5 mg/dL [facility] Est Glomerular Filtration Rate >60 >=60 [facility] Comment: The reported eGFR should be multiplied by 1.2 for patients. The MDRD is not an appropriate measure of renal function for patients with body mass extremes or in patients with acute kidney failure. [email or web address] [email or web address] Blood specimen (specimen) 11/19/2017 5:52 AM EDT 11/19/2017 6:14 AM EDT Narrative Resulting Agency Comment Spec In Lab Crista Aguilar MD CHEMISTRY ORDERABLE S [facility] [place] [address] * XR Pelvis Judet or In Out 3 views (11/18/2017 10:40 AM EDT) Anatomical Region Laterality Modality Pelvis N/A Digital Radiogra phy Narrative 11/18/2017 12:23 PM EDT EXAMINATION: XR PELVIS JUDET OR IN OUT 3 VIEWS CLINICAL HISTORY: about 11 weeks post ORIF, assess interval healing and hardware. TECHNIQUE: 2 oblique [Judet] views COMPARISON: Radiographs from November 17, 2017. FINDINGS: Bones: Interval ORIF of left acetabular fracture [likely posterior column type] with reconstruction plate and screws. No hardware complications. Unchanged appearance of hardware. Fracture lines are obscured by overlying bowel gas. Hip Joints: No dislocation is seen. Bilateral marginal osteophytes. Soft tissue: Limited evaluation due to portable state. Impression 1. ??Unchanged ORIF of left acetabular fracture. 2. ??The fracture lines are better characterized on CT exam. Procedure Note Park Dalal MD - 11/18/2017 EXAMINATION: XR PELVIS JUDET OR IN OUT 3 VIEWS CLINICAL HISTORY: about 11 weeks post ORIF, assess interval healing and hardware. TECHNIQUE: 2 oblique [Judet] views COMPARISON: Radiographs from November 17, 2017. FINDINGS: Bones: Interval ORIF of left acetabular fracture [likely posterior column type]with reconstruction plate and screws. No hardware complications. Unchangedappearance of hardware. Fracture lines are obscured by overlying bowel gas. Hip Joints: No dislocation is seen. Bilateral marginal osteophytes. Soft tissue: Limited evaluation due to portable state. Impression 1. Unchanged ORIF of left acetabular fracture. 2. The fracture lines are better characterized on CT exam. Yossi Morin IMG DX ORDERABLES * (ABNORMAL) Basic Metabolic Panel (non-fasting) (11/18/2017 5:15 AM EDT) Glucose 94 65 - 199 mg/dL [facility] Comment:Diabetes: >=200 mg/d L plus symptoms Blood Urea Nitrogen 12 10 - 20 mg/dL [facility] Creatinine 0.89 0.80 - 1.50 mg/dL [facility] Sodium 137 135 - 145 mmol/L [facility] Potassium 3.6 3.5 - 5.0 mmol/L [facility] Comment: Please note: ??Patients with WBC >100,000 may have falsely elevated Potassium levels. ??For accurate Potassium quantification in these patients send serum separator tube (gold top) for subsequent determinations. ??Contact the Clinical Chemistry Laboratory if there are any questions. Chloride 99 98 - 107 mmol/L [facility] Carbon Dioxide 25 22 - 31 mmol/L [facility] Anion Gap 13 5 - 15 mmol/L [facility] Calcium 8.4(L) 8.5 - 10.5 mg/dL [facility] Est Glomerular Filtration Rate >60 >=60 [facility] Comment: The reported eGFR should be multiplied by 1.2 for patients. The MDRD is not an appropriate measure of renal function for patients with body mass extremes or in patients with acute kidney failure. [email or web address] [email or web address] Blood specimen (specimen) 11/18/2017 5:15 AM EDT 11/18/2017 5:21 AM EDT Narrative Resulting Agency Comment Spec In Lab Crista Aguilar MD CHEMISTRY ORDERABLE S [facility] [place] [address] * POCT Glucose (11/18/2017 3:09 AM EDT) Glucose, POC 146 65 - 199 mg/dL [facility] Comment: Supplemental ranges: <140 mg/dL before meals <180 mg/dL all other times of the day Blood specimen (specimen) 11/18/2017 3:09 AM EDT 11/18/2017 3:09 AM EDT Crista Aguilar MD POINT OF CARE TEST ORDERABLES Performing Organization Address City/State/[facility] Co de Phone Number [facility] [place] [address] * XR Pelvis w AP & Lat Hip Left (11/17/2017 4:30 PM EDT) Anatomical Region Laterality Modality Pelvis, Hip Left Digital Radiogra phy Impressions 11/17/2017 4:54 PM EDT No acute fracture. Narrative 11/17/2017 4:54 PM EDT EXAMINATION: XR PELVIS W AP AND LAT HIP LEFT CLINICAL HISTORY: ORIF 09/04/17 - fell on left hip; also due for his routine XR for follow-up healing TECHNIQUE: AP pelvis, AP left hip, lateral left hip COMPARISON: October 13, 2017 FINDINGS: A left acetabular fracture has been repaired with reconstruction plates. The appearance is unchanged. There is no change in alignment of the left hip. No acute fracture is seen. Procedure Note Jeff Elias MD - 11/17/2017 EXAMINATION: XR PELVIS W AP AND LAT HIP LEFT CLINICAL HISTORY: ORIF 09/04/17 - fell on left hip; also due for his routineXR for follow-up healing TECHNIQUE: AP pelvis, AP left hip, lateral left hip COMPARISON: October 13, 2017 FINDINGS: A left acetabular fracture has been repaired with reconstruction plates.The appearance is unchanged. There is no change in alignment of the left hip.No acute fracture is seen. IMPRESSION No acute fracture. Crista Aguilar MD IMG DX ORDERABLES * XR Knee 1-2 Views Left (Generic) (11/17/2017 4:29 PM EDT) Anatomical Region Laterality Modality Knee Left Digital Radiogra phy Narrative 11/17/2017 5:07 PM EDT EXAMINATION: XR KNEE 1-2 VIEWS LEFT (GENERIC) CLINICAL HISTORY: Fell on left side - eval for fracture TECHNIQUE: 2 views COMPARISON: August 2017 and radiographs. FINDINGS: Bones: No fracture is present. The external fixating screw in the distal left femur is removed. There is a ghost screw tract seen. Left knee joint: No dislocation is seen. No large effusion seen. Limited evaluation of joint space due to persistent flexion. Soft tissue: Grossly normal Impression No fracture or dislocation No large knee effusion. Procedure Note Park Dalal MD - 11/17/2017 EXAMINATION: XR KNEE 1-2 VIEWS LEFT (GENERIC) CLINICAL HISTORY: Fell on left side - eval for fracture TECHNIQUE: 2 views COMPARISON: August 2017 and radiographs. FINDINGS: Bones: No fracture is present. The external fixating screw in the distalleft femur is removed. There is a ghost screw tract seen. Left knee joint: No dislocation is seen. No large effusion seen. Limited evaluation of joint space due to persistent flexion. Soft tissue: Grossly normal Impression No fracture or dislocation No large knee effusion. Crista Aguilar MD [facility] DX ORDERABLES * (ABNORMAL) BMP w/fasting Glucose (11/17/2017 9:09 AM EDT) [facility] Glucose Fasting 112(H) 65 - 99 mg/dL [facility] Comment: ?Fasting* Glucose Interpretive Criteria Normal ?65-99 mg/dL Impaired Fasting glucose ?100-125 mg/dL Consistent with Diabetes Mellitus ? >or= 126 mg/dL *Fasting is defined as no caloric intake for at least 8 hours In the absence of unequivocal hyperglycemia a plasma glucose value of >or= 126 mg/dL should be repeated on a subsequent day. Diagnosis and Classification of Diabetes Mellitus, Position Statement from the [place] [employer]. ??Diabetes Care, Volume 33, Supplement 1, Jul 2009 Blood Urea Nitrogen 17 10 - 20 mg/dL [facility] Creatinine 0.87 0.80 - 1.50 mg/dL [facility] Sodium 139 135 - 145 mmol/L [facility] Potassium 3.4(L) 3.5 - 5.0 mmol/L [facility] Comment: Please note: ??Patients with WBC >100,000 may have falsely elevated Potassium levels. ??For accurate Potassium quantification in these patients send serum separator tube (gold top) for subsequent determinations. ??Contact the Clinical Chemistry Laboratory if there are any questions. Chloride 100 98 - 107 mmol/L [facility] Carbon Dioxide 24 22 - 31 mmol/L [facility] Anion Gap 15 5 - 15 mmol/L [facility] Calcium 8.9 8.5 - 10.5 mg/dL [facility] Est Glomerular Filtration Rate >60 >=60 [facility] Comment: The reported eGFR should be multiplied by 1.2 for patients. The MDRD is not an appropriate measure of renal function for patients with body mass extremes or in patients with acute kidney failure. [email or web address] [email or web address] Blood specimen (specimen) 11/17/2017 9:09 AM EDT 11/17/2017 9:15 AM EDT Narrative Resulting Agency Comment Spec In Lab Kemi Camp APRN CHEMISTRY ORDERAB LES [facility] [place] [address] * T3 Total (11/17/2017 5:11 AM EDT) [facility] T3 Total 80 75 - 170 ng/dL [facility] LABORATORY Blood specimen (specimen) Venous Draw / Unknown 11/17/2017 5:11 AM EDT 11/17/2017 8:16 AM EDT Narrative Resulting Agency Comment Spec In Lab Yadi Mccauley MD CHEMISTRY ORDERAB LES Performing Organization Address City/[facility]/ZIP Co de Phone Number [facility] [place] [address] * (ABNORMAL) T4, free (11/17/2017 5:11 AM EDT) [facility] Free T4 0.72(L) 0.93 - 1.70 ng/dL [facility] Blood specimen (specimen) Venous Draw / Unknown 11/17/2017 5:11 AM EDT 11/17/2017 8:16 AM EDT Narrative Resulting Agency Comment Spec In Lab Yadi Mccauley MD CHEMISTRY ORDERAB LES Performing Organization Address [facility]/ZIP Co de Phone Number [facility] [place] [address] * (ABNORMAL) Basic Metabolic Panel (non-fasting) (11/17/2017 5:11 AM EDT) [facility] Glucose 87 65 - 199 mg/dL [facility] Comment:Diabetes: >=200 mg/d L plus symptoms Blood Urea Nitrogen 17 10 - 20 mg/dL [facility] Creatinine 0.84 0.80 - 1.50 mg/dL [facility] Sodium 138 135 - 145 mmol/L [facility] Comment:result rechecked-jt Potassium 3.4(L) 3.5 - 5.0 mmol/L [facility] Comment: Please note: ??Patients with WBC >100,000 may have falsely elevated Potassium levels. ??For accurate Potassium quantification in these patients send serum separator tube (gold top) for subsequent determinations. ??Contact the Clinical Chemistry Laboratory if there are any questions. Chloride 99 98 - 107 mmol/L [facility] Comment:result rechecked-jt Carbon Dioxide 24 22 - 31 mmol/L [facility] Anion Gap 15 5 - 15 mmol/L [facility] Calcium 8.5 8.5 - 10.5 mg/dL [facility] Est Glomerular Filtration Rate >60 >=60 [facility] Comment: The reported eGFR should be multiplied by 1.2 for patients. The MDRD is not an appropriate measure of renal function for patients with body mass extremes or in patients with acute kidney failure. [email or web address] [email or web address] Blood specimen (specimen) 11/17/2017 5:11 AM EDT 11/17/2017 5:26 AM EDT Narrative Resulting Agency Comment Spec In Lab Crista Aguilar MD CHEMISTRY ORDERABLE S [facility] [place] [address] * (ABNORMAL) Basic Metabolic Panel (non-fasting) (11/16/2017 7:52 PM EDT) Glucose 111 65 - 199 mg/dL [facility] Comment:Diabetes: >=200 mg/d L plus symptoms Blood Urea Nitrogen 20 10 - 20 mg/dL [facility] Creatinine 1.15 0.80 - 1.50 mg/dL [facility] Sodium 142 135 - 145 mmol/L [facility] Potassium 3.8 3.5 - 5.0 mmol/L [facility] Comment: Please note: ??Patients with WBC >100,000 may have falsely elevated Potassium levels. ??For accurate Potassium quantification in these patients send serum separator tube (gold top) for subsequent determinations. ??Contact the Clinical Chemistry Laboratory if there are any questions. Chloride 101 98 - 107 mmol/L [facility] Carbon Dioxide 25 22 - 31 mmol/L [facility] Anion Gap 16(H) 5 - 15 mmol/L [facility] Calcium 8.8 8.5 - 10.5 mg/dL [facility] Est Glomerular Filtration Rate >60 >=60 [facility] Comment: The reported eGFR should be multiplied by 1.2 for patients. The MDRD is not an appropriate measure of renal function for patients with body mass extremes or in patients with acute kidney failure. [email or web address] [email or web address] Blood specimen (specimen) 11/16/2017 7:52 PM EDT 11/16/2017 7:57 PM EDT Narrative Resulting Agency Comment Spec In Lab Crista Aguilar MD CHEMISTRY ORDERABLE S Performing Organization Address City/[facility]/ZIP Co de Phone Number [facility] [place] [address] * Specific [place], Urine (11/16/2017 6:24 AM EDT) Specific [place] Urine Automated 1.025 1.002 - 1.030 [facility] Urine specimen (specimen) 11/16/2017 6:24 AM EDT 11/16/2017 6:56 AM EDT Narrative Resulting Agency Comment Spec In Lab Yadi Mccauley MD URINE ORDERABLES [facility] [place] [address] * Electrolytes, urine, random (11/16/2017 6:24 AM EDT) Sodium, Urine 98 mmol/L [facility] Potassium, Urine 49 mmol/L [facility] Chloride, Urine 75 mmol/L [facility] Urine specimen (specimen) 11/16/2017 6:24 AM EDT 11/16/2017 6:56 AM EDT Narrative Resulting Agency Comment Spec In Lab Yossi Morin DO URINE ORDERABLES Performing Organization Address City/[facility]/ZIP Co de Phone Number [facility] [place] [address] * Osmolality, urine, random (11/16/2017 6:24 AM EDT) Osmolality, Urine 493 50 - 1,200 mOsm/kg [facility] Urine specimen (specimen) 11/16/2017 6:24 AM EDT 11/16/2017 6:56 AM EDT Narrative Resulting Agency Comment Spec In Lab Yossi Morin DO URINE ORDERABLES Performing Organization Address [facility] Co de Phone Number [facility] [place] [address] * (ABNORMAL) Basic Metabolic Panel (non-fasting) (11/15/2017 5:44 PM EDT) Glucose 109 65 - 199 mg/dL [facility] Comment:Diabetes: >=200 mg/d L plus symptoms Blood Urea Nitrogen 13 10 - 20 mg/dL [facility] Creatinine 0.87 0.80 - 1.50 mg/dL [facility] Sodium 152(H) 135 - 145 mmol/L [facility] Potassium 3.8 3.5 - 5.0 mmol/L [facility] Comment: Please note: ??Patients with WBC >100,000 may have falsely elevated Potassium levels. ??For accurate Potassium quantification in these patients send serum separator tube (gold top) for subsequent determinations. ??Contact the Clinical Chemistry Laboratory if there are any questions. Chloride 110(H) 98 - 107 mmol/L [facility] Carbon Dioxide 25 22 - 31 mmol/L [facility] Anion Gap 17(H) 5 - 15 mmol/L [facility] Calcium 9.3 8.5 - 10.5 mg/dL [facility] Est Glomerular Filtration Rate >60 >=60 [facility] Comment: The reported eGFR should be multiplied by 1.2 for patients. The MDRD is not an appropriate measure of renal function for patients with body mass extremes or in patients with acute kidney failure. [email or web address] [email or web address] Blood specimen (specimen) 11/15/2017 5:44 PM EDT 11/15/2017 5:51 PM EDT Narrative Resulting Agency Comment Spec In Lab Crista Aguilar MD CHEMISTRY ORDERABLE S Performing Organization Address City/[facility]/ZIP Co de Phone Number [facility] [place] [address] * (ABNORMAL) T4, free (11/15/2017 5:15 AM EDT) Free T4 0.71(L) 0.93 - 1.70 ng/dL [facility] Blood specimen (specimen) Venous Draw / Unknown 11/15/2017 5:15 AM EDT 11/15/2017 5:28 AM EDT Narrative Resulting Agency Comment Spec In Lab Yadi Mccauley MD CHEMISTRY ORDERAB LES Performing Organization Address [facility]/ZIP Co de Phone Number [facility] [place] [address] * Magnesium (11/15/2017 5:15 AM EDT) Magnesium 0.92 0.69 - 1.07 mmol/L [facility] Blood specimen (specimen) 11/15/2017 5:15 AM EDT 11/15/2017 5:25 AM EDT Narrative Resulting Agency Comment Spec In Lab Yossi Morin DO CHEMISTRY ORDERABLES Performing Organization Address [facility]/ZIP Co de Phone Number [facility] [place] [address] * (ABNORMAL) Basic Metabolic Panel (non-fasting) (11/15/2017 5:15 AM EDT) Glucose 109 65 - 199 mg/dL [facility] Comment:Diabetes: >=200 mg/d L plus symptoms Blood Urea Nitrogen 13 10 - 20 mg/dL [facility] Creatinine 0.92 0.80 - 1.50 mg/dL [facility] Sodium 151(H) 135 - 145 mmol/L [facility] Potassium 4.0 3.5 - 5.0 mmol/L [facility] Comment: Please note: ??Patients with WBC >100,000 may have falsely elevated Potassium levels. ??For accurate Potassium quantification in these patients send serum separator tube (gold top) for subsequent determinations. ??Contact the Clinical Chemistry Laboratory if there are any questions. Chloride 112(H) 98 - 107 mmol/L [facility] Comment:result rechecked-jt Carbon Dioxide 27 22 - 31 mmol/L [facility] Anion Gap 12 5 - 15 mmol/L [facility] Calcium 9.4 8.5 - 10.5 mg/dL [facility] Est Glomerular Filtration Rate >60 >=60 [facility] Comment: The reported eGFR should be multiplied by 1.2 for patients. The MDRD is not an appropriate measure of renal function for patients with body mass extremes or in patients with acute kidney failure. [email or web address] [email or web address] Blood specimen (specimen) 11/15/2017 5:15 AM EDT 11/15/2017 5:25 AM EDT Narrative Resulting Agency Comment Spec In Lab Yossi Morin DO CHEMISTRY ORDERABLES [facility] [place] [address] * (ABNORMAL) Hemogram (11/14/2017 5:08 AM EDT) White Blood Cell 5.7 4.0 - 9.5 x10(3)/mc L [facility] Red Blood Cell 4.61 4.58 - 5.54 x10(6)/[facility] Hemoglobin 11.5(L) 13.7 - 16.5 gm/dL [facility] Hematocrit 37.4(L) 40.5 - 48.5 % [facility] Mean Cell Volume 81.1(L) 82.9 - 93.1 [facility] Mean Cell Hemoglobin 24.9(L) 27.5 - 32.1 pg [facility] Mean Cell Hemoglobin Concentration 30.7(L) 32.0 - 35.7 gm/dL [facility] Platelet 274 145 - 357 x10(3)/[facility] LABORATORY RDW Standard Deviation 48.6(H) 36.0 - 45.0 [facility] RDW coefficient of variation 16.5(H) 11.4 - 13.8 % [facility] Mean Platelet Volume 10.0 7.6 - 12.9 [facility] LAB[facility]ORY NRBC% auto 0.0 % [facility] NRBC Absolute 0.000 0.000 - 0.000 x10(3)/[facility] Blood specimen (specimen) 11/14/2017 5:08 AM EDT 11/14/2017 5:44 AM EDT Narrative Resulting Agency Comment Spec In Lab Yossi Morin DO HEMATOLOGY ORDERABLE S [facility] [place] [address] * Magnesium (11/14/2017 5:08 AM EDT) Magnesium 0.84 0.69 - 1.07 mmol/L [facility] Blood specimen (specimen) 11/14/2017 5:08 AM EDT 11/14/2017 5:44 AM EDT Narrative Resulting Agency Comment Spec In Lab Yossi Morin CHEMISTRY ORDERABLES Performing Organization Address [facility]/ZIP Co de Phone Number [facility] [place] [address] * Basic Metabolic Panel (non-fasting) (11/14/2017 5:08 AM EDT) Glucose 85 65 - 199 mg/dL [facility] Comment:Diabetes: >=200 mg/d L plus symptoms Blood Urea Nitrogen 12 10 - 20 mg/dL [facility] Creatinine 0.85 0.80 - 1.50 mg/dL [facility] Sodium 143 135 - 145 mmol/L [facility] Potassium 3.5 3.5 - 5.0 mmol/L [facility] Comment: Please note: ??Patients with WBC >100,000 may have falsely elevated Potassium levels. ??For accurate Potassium quantification in these patients send serum separator tube (gold top) for subsequent determinations. ??Contact the Clinical Chemistry Laboratory if there are any questions. Chloride 103 98 - 107 mmol/L [facility] Carbon Dioxide 28 22 - 31 mmol/L [facility] Anion Gap 12 5 - 15 mmol/L [facility] Calcium 9.2 8.5 - 10.5 mg/dL [facility] Est Glomerular Filtration Rate >60 >=60 [facility] Comment: The reported eGFR should be multiplied by 1.2 for patients. The MDRD is not an appropriate measure of renal function for patients with body mass extremes or in patients with acute kidney failure. [email or web address] [email or web address] Blood specimen (specimen) 11/14/2017 5:08 AM EDT 11/14/2017 5:44 AM EDT Narrative Resulting Agency Comment Spec In Lab Yossi Morin CHEMISTRY ORDERABLES Performing Organization Address City/[facility]/ZIP Co de Phone Number [facility] [place] [address] * Sodium (11/13/2017 7:16 PM EDT) Sodium 142 135 - 145 mmol/L [facility] Blood specimen (specimen) 11/13/2017 7:16 PM EDT 11/13/2017 7:26 PM EDT Narrative Resulting Agency Comment Spec In Lab Yossi Anant Mikel CHEMISTRY ORDERABLES [facility] [place] [address] * (ABNORMAL) Basic Metabolic Panel (non-fasting) (11/13/2017 6:33 AM EDT) Glucose 101 65 - 199 mg/dL [facility] Comment:Diabetes: >=200 mg/d L plus symptoms Blood Urea Nitrogen 11 10 - 20 mg/dL [facility] Creatinine 0.77(L) 0.80 - 1.50 mg/dL [facility] Sodium 148(H) 135 - 145 mmol/L [facility] Potassium Not Perf 3.5 - 5.0 mmol/L [facility] Comment: Unable to quantitate due to sample hemolysis. ??Sample redraw suggested. Called by: [facility], Read back by: Adia Clarke, Date/Time:11/13/17 09:21. Please note: ??Patients with WBC >100,000 may have falsely elevated Potassium levels. ??For accurate Potassium quantification in these patients send serum separator tube (gold top) for subsequent determinations. ??Contact the Clinical Chemistry Laboratory if there are any questions. Chloride 109(H) 98 - 107 mmol/L [facility] Carbon Dioxide Not Perf 22 - 31 mmol/L [facility] Comment: Lipemic interference. [facility] Corrected from 26 mMol/L on 11/13/17 07:54 by Tammie Caldwell Anion Gap Not Calculated 5 - 15 mmol/L [facility] Calcium 8.8 8.5 - 10.5 mg/dL [facility] Est Glomerular Filtration Rate >60 >=60 [facility] Comment: The reported eGFR should be multiplied by 1.2 for patients. The MDRD is not an appropriate measure of renal function for patients with body mass extremes or in patients with acute kidney failure. [email or web address] [email or web address] Blood specimen (specimen) 11/13/2017 6:33 AM EDT 11/13/2017 6:45 AM EDT Narrative Resulting Agency Comment Spec In Lab Yossi Morin DO CHEMISTRY ORDERABLES [facility] [place] [address] * (ABNORMAL) Basic Metabolic Panel (non-fasting) (11/10/2017 7:36 AM EDT) Glucose 84 65 - 199 mg/dL [facility] Comment:Diabetes: >=200 mg/d L plus symptoms Blood Urea Nitrogen 18 10 - 20 mg/dL [facility] Creatinine 0.87 0.80 - 1.50 mg/dL [facility] Comment:Specimen ultracentri fuged due to gross lipemia Sodium 145 135 - 145 mmol/L [facility] Comment:Specimen ultracentri fuged due to gross lipemia Potassium 3.7 3.5 - 5.0 mmol/L [facility] Comment: Please note: ??Patients with WBC >100,000 may have falsely elevated Potassium levels. ??For accurate Potassium quantification in these patients send serum separator tube (gold top) for subsequent determinations. ??Contact the Clinical Chemistry Laboratory if there are any questions. Chloride 99 98 - 107 mmol/L [facility] Carbon Dioxide 26 22 - 31 mmol/L [facility] Anion Gap 20(H) 5 - 15 mmol/L [facility] Calcium 8.9 8.5 - 10.5 mg/dL [facility] Est Glomerular Filtration Rate >60 >=60 [facility] Comment: The reported eGFR should be multiplied by 1.2 for patients. The MDRD is not an appropriate measure of renal function for patients with body mass extremes or in patients with acute kidney failure. [email or web address] [email or web address] Blood specimen (specimen) 11/10/2017 7:36 AM EDT 11/10/2017 7:40 AM EDT Narrative Resulting Agency Comment Spec In Lab Prosper Courtney APRN CHEMISTRY ORDERABLES [facility] [place] [address] * Basic Metabolic Panel (non-fasting) (11/10/2017 6:24 AM EDT) Glucose 88 65 - 199 mg/dL [facility] Comment:Diabetes: >=200 mg/d L plus symptoms Blood Urea Nitrogen 18 10 - 20 mg/dL [facility] Creatinine Not Perf 0.80 - 1.50 [facility] Comment: Unable to quantitate due to sample hemolysis. ??Sample redraw suggested. Called by: RENITA, Read back by: Emerald Domínguez, Date/Time:11/10/17 07:17. Sodium Not Perf 135 - 145 [facility] Comment: Unable to quantitate due to sample hemolysis. ??Sample redraw suggested. Called by: RENITA, Read back by: Emerald Domínguez, Date/Time:11/10/17 07:17. Potassium Not Perf 3.5 - 5.0 mmol/L [facility] Comment: Unable to quantitate due to sample hemolysis. ??Sample redraw suggested. Called by: RENITA, Read back by: Emerald Domínguez, Date/Time:11/10/17 07:17. Please note: ??Patients with WBC >100,000 may have falsely elevated Potassium levels. ??For accurate Potassium quantification in these patients send serum separator tube (gold top) for subsequent determinations. ??Contact the Clinical Chemistry Laboratory if there are any questions. Chloride 98 98 - 107 mmol/L [facility] Carbon Dioxide 27 22 - 31 mmol/L [facility] Anion Gap Unable to Calculate 5 - 15 mmol/L [facility] Calcium 8.8 8.5 - 10.5 mg/dL [facility] Est Glomerular Filtration Rate Not Calculated >=60 [facility] Comment: The reported eGFR should be multiplied by 1.2 for patients. The MDRD is not an appropriate measure of renal function for patients with body mass extremes or in patients with acute kidney failure. [email or web address] [email or web address] Blood specimen (specimen) 11/10/2017 6:24 AM EDT 11/10/2017 6:33 AM EDT Narrative Resulting Agency Comment Spec In Lab Yossi Morin DO CHEMISTRY ORDERABLES Performing Organization Address City/State/[facility] Co de Phone Number [facility] [place] [address] * (ABNORMAL) Basic Metabolic Panel (non-fasting) (11/09/2017 8:41 PM EDT) Glucose 119 65 - 199 mg/dL [facility] Comment:Diabetes: >=200 mg/d L plus symptoms Blood Urea Nitrogen 18 10 - 20 mg/dL [facility] Creatinine 1.01 0.80 - 1.50 mg/dL [facility] Comment:Specimen ultracentri fuged due to gross lipemia Sodium 145 135 - 145 mmol/L [facility] Comment:Specimen ultracentri fuged due to gross lipemia Potassium Not Perf 3.5 - 5.0 mmol/L [facility] Comment: Unable to quantitate due to sample hemolysis. ??Sample redraw suggested. Called to Isabel ([facility]), 11/09/17 21:33 Please note: ??Patients with WBC >100,000 may have falsely elevated Potassium levels. ??For accurate Potassium quantification in these patients send serum separator tube (gold top) for subsequent determinations. ??Contact the Clinical Chemistry Laboratory if there are any questions. Chloride 104 98 - 107 mmol/L [facility] Comment:Specimen ultracentri fuged due to gross lipemia Carbon Dioxide 23 22 - 31 mmol/L [facility] Anion Gap 18(H) 5 - 15 mmol/L [facility] Calcium 8.9 8.5 - 10.5 mg/dL [facility] Est Glomerular Filtration Rate >60 >=60 [facility] Comment: The reported eGFR should be multiplied by 1.2 for patients. The MDRD is not an appropriate measure of renal function for patients with body mass extremes or in patients with acute kidney failure. [email or web address] [email or web address]/[email or web address] Blood specimen (specimen) 11/09/2017 8:41 PM EDT 11/09/2017 8:46 PM EDT Narrative Resulting Agency Comment Spec In Lab Yossi Morin DO CHEMISTRY ORDERABLES Performing Organization Address City/[facility]/ZIP Co de Phone Number [facility] [place] [address] * Sodium (11/03/2017 4:03 AM EDT) Sodium 140 135 - 145 mmol/L [facility] Blood specimen (specimen) 11/03/2017 4:03 AM EDT 11/03/2017 4:36 AM EDT Narrative Resulting Agency Comment Spec In Lab Juliet Medeiros APRN CHEMISTRY ORDERABLES Performing Organization Address [facility]/ZIP Co de Phone Number [facility] [place] [address] * Sodium (11/02/2017 7:38 AM EDT) Sodium 136 135 - 145 mmol/L [facility] Blood specimen (specimen) 11/02/2017 7:38 AM EDT 11/02/2017 8:15 AM EDT Narrative Resulting Agency Comment Spec In Lab Juliet Medeiros APRN CHEMISTRY ORDERABLES [facility] [place] [address] * Sodium (11/01/2017 5:01 AM EDT) Sodium 138 135 - 145 mmol/L [facility] Blood specimen (specimen) 11/01/2017 5:01 AM EDT 11/01/2017 5:34 AM EDT Narrative Resulting Agency Comment Spec In Lab Dillon Koch MD CHEMISTRY ORDERABLES Performing Organization Address [facility]/ZIP Co de Phone Number [facility] [place] [address] * Sodium (10/31/2017 10:19 AM EDT) Sodium 139 135 - 145 mmol/L [facility] Blood specimen (specimen) 10/31/2017 10:19 AM EDT 10/31/2017 10:39 AM EDT Narrative Resulting Agency Comment Spec In Lab Dillon Koch MD CHEMISTRY ORDERABLES Performing Organization Address City/[facility]/ZIP Co de Phone Number [facility] [place] [address] * (ABNORMAL) Sodium (10/31/2017 6:37 AM EDT) Sodium 134(L) 135 - 145 mmol/L [facility] Blood specimen (specimen) 10/31/2017 6:37 AM EDT 10/31/2017 6:44 AM EDT Narrative Resulting Agency Comment Spec In Lab Dillon Koch MD CHEMISTRY ORDERABLES Performing Organization Address City/[facility]/ZIP Co de Phone Number [facility] [place] [address] * Sodium (10/30/2017 3:53 AM EDT) Sodium 135 135 - 145 mmol/L [facility] Blood specimen (specimen) 10/30/2017 3:53 AM EDT 10/30/2017 3:58 AM EDT Narrative Resulting Agency Comment Spec In Lab Juliet Medeiros MEAT LOINER CHEMISTRY ORDERABLES Performing Organization Address City/[facility]/ZIP Co de Phone Number [facility] [place] [address] * Sodium (10/29/2017 5:54 AM EDT) Sodium 138 135 - 145 mmol/L [facility] Comment:Called by: SAVANNAH, Read back by: Jeannette, Date/Time:10/29/17 08:24. Blood specimen (specimen) 10/29/2017 5:54 AM EDT 10/29/2017 6:22 AM EDT Narrative Resulting Agency Comment Spec In Lab Juliet L Medeiros MEAT LOINER CHEMISTRY ORDERABLES Performing Organization Address City/[facility]/ZIP Co de Phone Number [facility] [place] [address] * Basic Metabolic Panel (non-fasting) (10/28/2017 9:22 AM EDT) Glucose 116 65 - 199 mg/dL [facility] Comment:Diabetes: >=200 mg/d L plus symptoms Blood Urea Nitrogen 15 10 - 20 mg/dL [facility] Creatinine 0.85 0.80 - 1.50 mg/dL [facility] Sodium 137 135 - 145 mmol/L [facility] Potassium 3.7 3.5 - 5.0 mmol/L [facility] Comment: Please note: ??Patients with WBC >100,000 may have falsely elevated Potassium levels. ??For accurate Potassium quantification in these patients send serum separator tube (gold top) for subsequent determinations. ??Contact the Clinical Chemistry Laboratory if there are any questions. Chloride 99 98 - 107 mmol/L [facility] Carbon Dioxide 24 22 - 31 mmol/L [facility] Anion Gap 14 5 - 15 mmol/L [facility] Calcium 9.1 8.5 - 10.5 mg/dL [facility] Est Glomerular Filtration Rate >60 >=60 [facility] Comment: The reported eGFR should be multiplied by 1.2 for patients. The MDRD is not an appropriate measure of renal function for patients with body mass extremes or in patients with acute kidney failure. [email or web address] Blood specimen (specimen) 10/28/2017 9:22 AM EDT 10/28/2017 9:31 AM EDT Narrative Resulting Agency Comment Spec In Lab Dillon Koch MD CHEMISTRY ORDERABLES Performing Organization Address City/State/[facility] Co de Phone Number [facility] [place] [address] * BMP w/fasting Glucose (10/28/2017 3:24 AM EDT) Glucose Fasting 82 65 - 99 mg/dL [facility] Comment: ?Fasting* Glucose Interpretive Criteria Normal ?65-99 mg/dL Impaired Fasting glucose ?100-125 mg/dL Consistent with Diabetes Mellitus ? >or= 126 mg/dL *Fasting is defined as no caloric intake for at least 8 hours In the absence of unequivocal hyperglycemia a plasma glucose value of >or= 126 mg/dL should be repeated on a subsequent day. Diagnosis and Classification of Diabetes Mellitus, Position Statement from the [place] [employer]. ??Diabetes Care, Volume 33, Supplement 1, Jul 2009 Blood Urea Nitrogen 16 10 - 20 mg/dL [facility] Creatinine 0.85 0.80 - 1.50 mg/dL [facility] Sodium 139 135 - 145 mmol/L [facility] Potassium 3.7 3.5 - 5.0 mmol/L [facility] Comment: Please note: ??Patients with WBC >100,000 may have falsely elevated Potassium levels. ??For accurate Potassium quantification in these patients send serum separator tube (gold top) for subsequent determinations. ??Contact the Clinical Chemistry Laboratory if there are any questions. Chloride 99 98 - 107 mmol/L [facility] Carbon Dioxide 26 22 - 31 mmol/L [facility] Anion Gap 14 5 - 15 mmol/L [facility] Calcium 8.9 8.5 - 10.5 mg/dL [facility] Est Glomerular Filtration Rate >60 >=60 [facility] Comment: The reported eGFR should be multiplied by 1.2 for patients. The MDRD is not an appropriate measure of renal function for patients with body mass extremes or in patients with acute kidney failure. [email or web address] Blood specimen (specimen) 10/28/2017 3:24 AM EDT 10/28/2017 3:42 AM EDT Narrative Resulting Agency Comment Spec In Lab Isabel Donis MD CHEMISTRY ORDERABLES Performing Organization Address City/[facility]/ZIP Co de Phone Number [facility] [place] [address] * Sodium (10/27/2017 6:16 AM EDT) Sodium 140 135 - 145 mmol/L [facility] Blood specimen (specimen) 10/27/2017 6:16 AM EDT 10/27/2017 6:21 AM EDT Narrative Resulting Agency Comment Spec In Lab Juliet Medeiros APRN CHEMISTRY ORDERABLES Performing Organization Address [facility]/ZIP Co de Phone Number [facility] [place] [address] * BMP w/fasting Glucose (10/25/2017 3:16 AM EDT) Glucose Fasting 79 65 - 99 mg/dL [facility] Comment: ?Fasting* Glucose Interpretive Criteria Normal ?65-99 mg/dL Impaired Fasting glucose ?100-125 mg/dL Consistent with Diabetes Mellitus ? >or= 126 mg/dL *Fasting is defined as no caloric intake for at least 8 hours In the absence of unequivocal hyperglycemia a plasma glucose value of >or= 126 mg/dL should be repeated on a subsequent day. Diagnosis and Classification of Diabetes Mellitus, Position Statement from the [place] [employer]. ??Diabetes Care, Volume 33, Supplement 1, Jul 2009 Blood Urea Nitrogen 17 10 - 20 mg/dL [facility] Creatinine 0.90 0.80 - 1.50 mg/dL [facility] Sodium 139 135 - 145 mmol/L [facility] Potassium 3.7 3.5 - 5.0 mmol/L [facility] Comment: Please note: ??Patients with WBC >100,000 may have falsely elevated Potassium levels. ??For accurate Potassium quantification in these patients send serum separator tube (gold top) for subsequent determinations. ??Contact the Clinical Chemistry Laboratory if there are any questions. Chloride 100 98 - 107 mmol/L [facility] Carbon Dioxide 26 22 - 31 mmol/L [facility] Anion Gap 13 5 - 15 mmol/L [facility] Calcium 9.2 8.5 - 10.5 mg/dL [facility] Est Glomerular Filtration Rate >60 >=60 [facility] Comment: The reported eGFR should be multiplied by 1.2 for patients. The MDRD is not an appropriate measure of renal function for patients with body mass extremes or in patients with acute kidney failure. [email or web address] Blood specimen (specimen) 10/25/2017 3:16 AM EDT 10/25/2017 3:42 AM EDT Narrative Resulting Agency Comment Spec In Lab Isabel Donis MD CHEMISTRY ORDERABLES [facility] [place] [address] * (ABNORMAL) Differential, Automated (10/22/2017 5:02 AM EDT) Neutrophil % 47.9 % [facility] Neutrophil Absolute 3.14 1.70 - 6.10 x10(3)/[facility] Lymph % 36.0 % [facility] Lymphocytes Abs 2.4 0.9 - 3.2 x10(3)/[facility] Monocyte % 10.7 % [facility] Monocyte Abs 0.7 0.3 - 0.9 x10(3)/[facility] Eos % 3.7 % [facility] Eosinophils Abs 0.2 0.0 - 0.4 x10(3)/[facility] Basophil % 0.8 % [facility] Baso Absolute 0.0 0.0 - 0.1 x10(3)/[facility] Immature Gran % 0.90 % [facility] Comment: Immature granulocytes(IG's)percentage and absolute count will include metamyelocytes, myelocytes, and promyelocytes. Blood smears from CBCs yielding IG's will be scanned manually for concordance. If this scan disagrees with the automated IG or if promyelocytes are noted, a manual differential will be performed. Immature Gran Absolute 0.06(H) 0.00 - 0.04 x10(3)/ L [facility] Blood specimen (specimen) 10/22/2017 5:02 AM EDT 10/22/2017 5:10 AM EDT Narrative Resulting Agency Comment Spec In Lab Kemi Camp APRN HEMATOLOGY ORDERA BLES Performing Organization Address City/[facility]/ZIP Co de Phone Number [facility] [place] [address] * (ABNORMAL) Hemogram (10/22/2017 5:02 AM EDT) White Blood Cell 6.6 4.0 - 9.5 x10(3)/[facility] Red Blood Cell 5.06 4.58 - 5.54 x10(6)/[facility] Hemoglobin 12.9(L) 13.7 - 16.5 gm/dL [facility] Hematocrit 40.5 40.5 - 48.5 % [facility] Mean Cell Volume 80.0(L) 82.9 - 93.1 fL [facility] Comment: This result has been called to HOLLEY MEI by Desean Pope on 10 22 2017 at 0600, and has been read back. Mean Cell Hemoglobin 25.5(L) 27.5 - 32.1 pg [facility] Mean Cell Hemoglobin Concentration 31.9(L) 32.0 - 35.7 gm/dL [facility] Platelet 339 145 - 357 x10(3)/[facility] RDW Standard Deviation 45.7(H) 36.0 - 45.0 [facility] RDW coefficient of variation 15.8(H) 11.4 - 13.8 % [facility] Mean Platelet Volume 9.8 7.6 - 12.9 [facility] NRBC% auto 0.0 % [facility] NRBC Absolute 0.000 0.000 - 0.000 x10(3)/[facility] Blood specimen (specimen) 10/22/2017 5:02 AM EDT 10/22/2017 5:10 AM EDT Narrative Resulting Agency Comment Spec In Lab Kemi Camp APRN HEMATOLOGY ORDERA BLES Performing Organization Address City/[facility]/ZIP Co de Phone Number [facility] [place] [address] * (ABNORMAL) BMP w/fasting Glucose (10/22/2017 5:02 AM EDT) Glucose Fasting 103(H) 65 - 99 mg/dL [facility] Comment: ?Fasting* Glucose Interpretive Criteria Normal ?65-99 mg/dL Impaired Fasting glucose ?100-125 mg/dL Consistent with Diabetes Mellitus ? >or= 126 mg/dL *Fasting is defined as no caloric intake for at least 8 hours In the absence of unequivocal hyperglycemia a plasma glucose value of >or= 126 mg/dL should be repeated on a subsequent day. Diagnosis and Classification of Diabetes Mellitus, Position Statement from the [place] [employer]. ??Diabetes Care, Volume 33, Supplement 1, Jul 2009 Blood Urea Nitrogen 11 10 - 20 mg/dL [facility] Creatinine 0.74(L) 0.80 - 1.50 mg/dL [facility] Sodium 141 135 - 145 mmol/L [facility] Potassium 4.0 3.5 - 5.0 mmol/L [facility] Comment: Please note: ??Patients with WBC >100,000 may have falsely elevated Potassium levels. ??For accurate Potassium quantification in these patients send serum separator tube (gold top) for subsequent determinations. ??Contact the Clinical Chemistry Laboratory if there are any questions. Chloride 103 98 - 107 mmol/L [facility] Carbon Dioxide 22 22 - 31 mmol/L [facility] Anion Gap 16(H) 5 - 15 mmol/L [facility] Calcium 9.2 8.5 - 10.5 mg/dL [facility] Est Glomerular Filtration Rate >60 >=60 [facility] Comment: The reported eGFR should be multiplied by 1.2 for patients. The MDRD is not an appropriate measure of renal function for patients with body mass extremes or in patients with acute kidney failure. [email or web address] Blood specimen (specimen) 10/22/2017 5:02 AM EDT 10/22/2017 5:10 AM EDT Narrative Resulting Agency Comment Spec In Lab Kemi Emerald Marya SANTANA CHEMISTRY ORDERAB LES [facility] [place] [address] * (ABNORMAL) BMP w/fasting Glucose (10/21/2017 4:03 AM EDT) Glucose Fasting 90 65 - 99 mg/dL [facility] Comment: ?Fasting* Glucose Interpretive Criteria Normal ?65-99 mg/dL Impaired Fasting glucose ?100-125 mg/dL Consistent with Diabetes Mellitus ? >or= 126 mg/dL *Fasting is defined as no caloric intake for at least 8 hours In the absence of unequivocal hyperglycemia a plasma glucose value of >or= 126 mg/dL should be repeated on a subsequent day. Diagnosis and Classification of Diabetes Mellitus, Position Statement from the [place] [employer]. ??Diabetes Care, Volume 33, Supplement 1, Jul 2009 Specimen ultracentrifuged due to gross lipemia ?Fasting* Glucose Interpretive Criteria Normal ?65-99 mg/dL Impaired Fasting glucose ?100-125 mg/dL Consistent with Diabetes Mellitus ? >or= 126 mg/dL *Fasting is defined as no caloric intake for at least 8 hours In the absence of unequivocal hyperglycemia a plasma glucose value of >or= 126 mg/dL should be repeated on a subsequent day. Diagnosis and Classification of Diabetes Mellitus, Position Statement from the [place] [employer]. ??Diabetes Care, Volume 33, Supplement 1, Jul 2009 Corrected from 90 mg/dL on 10/21/17 05:22 by Hannah Saenz Blood Urea Nitrogen 16 10 - 20 mg/dL [facility] Creatinine 0.91 0.80 - 1.50 mg/dL [facility] Sodium 134(L) 135 - 145 mmol/L [facility] Potassium 4.3 3.5 - 5.0 mmol/L [facility] Comment: Please note: ??Patients with WBC >100,000 may have falsely elevated Potassium levels. ??For accurate Potassium quantification in these patients send serum separator tube (gold top) for subsequent determinations. ??Contact the Clinical Chemistry Laboratory if there are any questions. Chloride 95(L) 98 - 107 mmol/L [facility] Carbon Dioxide 23 22 - 31 mmol/L [facility] Anion Gap 16(H) 5 - 15 mmol/L [facility] Calcium 9.5 8.5 - 10.5 mg/dL [facility] Est Glomerular Filtration Rate >60 >=60 [facility] Comment: The reported eGFR should be multiplied by 1.2 for patients. The MDRD is not an appropriate measure of renal function for patients with body mass extremes or in patients with acute kidney failure. [email or web address] Blood specimen (specimen) 10/21/2017 4:03 AM EDT 10/21/2017 4:11 AM EDT Narrative Resulting Agency Comment Spec In Lab Kemi Camp APRN CHEMISTRY ORDERAB LES [facility] [place] [address] * CT Face wo Contrast (10/20/2017 12:07 PM EDT) Anatomical Region Laterality Modality Head Computed Tomogra phy Impressions 10/20/2017 1:23 PM EDT Multiple dental caries. Dental restorations limits resolution somewhat but no definite molar fracture can be seen. Consider Panorex of the mandible. Narrative 10/20/2017 1:23 PM EDT EXAMINATION: CT FACE WO CONTRAST CLINICAL HISTORY: suspected fracture left lower molar TECHNIQUE: Axial unenhanced images of the mandible were obtained, with sagittal and coronal reformats. COMPARISON: None FINDINGS: Multiple caries are identified. Hardening artifact relating to prior restorations is noted. No definite fractures can be seen although the artifact does limit sensitivity somewhat. Slightly case were mandibular Panorex could be of use, but no other significant abnormalities can be seen. The mandible itself appears to be intact. Indications of an old right frontal craniotomy seen. Procedure Note Godfrey Ortiz MD - 10/20/2017 EXAMINATION: CT FACE WO CONTRAST CLINICAL HISTORY: suspected fracture left lower molar TECHNIQUE: Axial unenhanced images of the mandible were obtained, with sagittal andcoronal reformats. COMPARISON: None FINDINGS: Multiple caries are identified. Hardening artifact relating to prior restorations is noted. No definite fractures can be seen although theartifact does limit sensitivity somewhat. Slightly case were mandibular Panorexcould be of use, but no other significant abnormalities can be seen. The mandibleitself appears to be intact. Indications of an old right frontal craniotomyseen. IMPRESSION Multiple dental caries. Dental restorations limits resolution somewhat butno definite molar fracture can be seen. Consider Panorex of the mandible. Dillon Koch MD G CT ORDERABLES * (ABNORMAL) Basic Metabolic Panel (non-fasting) (10/19/2017 9:55 AM EDT) Glucose 92 65 - 199 mg/dL [facility] Comment:Diabetes: >=200 mg/d L plus symptoms Blood Urea Nitrogen 16 10 - 20 mg/dL [facility] Creatinine 0.98 0.80 - 1.50 mg/dL [facility] Sodium 141 135 - 145 mmol/L [facility] Potassium 3.8 3.5 - 5.0 mmol/L [facility] Comment: Please note: ??Patients with WBC >100,000 may have falsely elevated Potassium levels. ??For accurate Potassium quantification in these patients send serum separator tube (gold top) for subsequent determinations. ??Contact the Clinical Chemistry Laboratory if there are any questions. Chloride 101 98 - 107 mmol/L [facility] Carbon Dioxide 23 22 - 31 mmol/L [facility] Anion Gap 17(H) 5 - 15 mmol/L [facility] Calcium 9.1 8.5 - 10.5 mg/dL [facility] Est Glomerular Filtration Rate >60 >=60 [facility] Comment: The reported eGFR should be multiplied by 1.2 for patients. The MDRD is not an appropriate measure of renal function for patients with body mass extremes or in patients with acute kidney failure. [email or web address] [email or web address] Blood specimen (specimen) 10/19/2017 9:55 AM EDT 10/19/2017 9:59 AM EDT Narrative Resulting Agency Comment Spec In Lab Isabel Donis MD CHEMISTRY ORDERABLES [facility] [place] [address] * (ABNORMAL) Basic Metabolic Panel (non-fasting) (10/17/2017 6:27 PM EDT) Glucose 129 65 - 199 mg/dL [facility] Comment:Diabetes: >=200 mg/d L plus symptoms Blood Urea Nitrogen 15 10 - 20 mg/dL [facility] Creatinine 0.86 0.80 - 1.50 mg/dL [facility] Sodium 142 135 - 145 mmol/L [facility] Potassium Not Perf 3.5 - 5.0 mmol/L [facility] Comment: Unable to quantitate due to sample hemolysis. ??Sample redraw suggested. Please note: ??Patients with WBC >100,000 may have falsely elevated Potassium levels. ??For accurate Potassium quantification in these patients send serum separator tube (gold top) for subsequent determinations. ??Contact the Clinical Chemistry Laboratory if there are any questions. Chloride 102 98 - 107 mmol/L [facility] Carbon Dioxide 22 22 - 31 mmol/L [facility] Anion Gap 18(H) 5 - 15 mmol/L [facility] Calcium 8.8 8.5 - 10.5 mg/dL [facility] Est Glomerular Filtration Rate >60 >=60 [facility] Comment: The reported eGFR should be multiplied by 1.2 for patients. The MDRD is not an appropriate measure of renal function for patients with body mass extremes or in patients with acute kidney failure. [email or web address] [email or web address] Blood specimen (specimen) 10/17/2017 6:27 PM EDT 10/17/2017 7:26 PM EDT Narrative Resulting Agency Comment Spec In Lab Kalpana Rubin MD CHEMISTRY ORDERABLES [facility] [place] [address] * Basic Metabolic Panel (non-fasting) (10/16/2017 10:26 AM EDT) Glucose 124 65 - 199 mg/dL [facility] Comment:Diabetes: >=200 mg/d L plus symptoms Blood Urea Nitrogen 16 10 - 20 mg/dL [facility] Creatinine 0.86 0.80 - 1.50 mg/dL [facility] Sodium 141 135 - 145 mmol/L [facility] Potassium 4.0 3.5 - 5.0 mmol/L [facility] Comment: Please note: ??Patients with WBC >100,000 may have falsely elevated Potassium levels. ??For accurate Potassium quantification in these patients send serum separator tube (gold top) for subsequent determinations. ??Contact the Clinical Chemistry Laboratory if there are any questions. Chloride 104 98 - 107 mmol/L [facility] Carbon Dioxide 22 22 - 31 mmol/L [facility] Anion Gap 15 5 - 15 mmol/L [facility] Calcium 9.2 8.5 - 10.5 mg/dL [facility] Est Glomerular Filtration Rate >60 >=60 [facility] Comment: The reported eGFR should be multiplied by 1.2 for patients. The MDRD is not an appropriate measure of renal function for patients with body mass extremes or in patients with acute kidney failure. [email or web address] Blood specimen (specimen) 10/16/2017 10:26 AM EDT 10/16/2017 10:34 AM EDT Narrative Resulting Agency Comment Spec In Lab Dillon Koch MD CHEMISTRY ORDERABLES [facility] [place] [id number] * Basic Metabolic Panel (non-fasting) (10/15/2017 8:27 AM EDT) Glucose 85 65 - 199 mg/dL [facility] Comment:Diabetes: >=200 mg/d L plus symptoms Blood Urea Nitrogen 16 10 - 20 mg/dL [facility] Creatinine 0.99 0.80 - 1.50 mg/dL [facility] Sodium 140 135 - 145 mmol/L [facility] Potassium 3.7 3.5 - 5.0 mmol/L [facility] Comment: Please note: ??Patients with WBC >100,000 may have falsely elevated Potassium levels. ??For accurate Potassium quantification in these patients send serum separator tube (gold top) for subsequent determinations. ??Contact the Clinical Chemistry Laboratory if there are any questions. Chloride 101 98 - 107 mmol/L [facility] Carbon Dioxide 24 22 - 31 mmol/L [facility] Anion Gap 15 5 - 15 mmol/L [facility] Calcium 8.9 8.5 - 10.5 mg/dL [facility] Est Glomerular Filtration Rate >60 >=60 [facility] Comment: The reported eGFR should be multiplied by 1.2 for patients. The MDRD is not an appropriate measure of renal function for patients with body mass extremes or in patients with acute kidney failure. [email or web address] Blood specimen (specimen) 10/15/2017 8:27 AM EDT 10/15/2017 8:33 AM EDT Narrative Resulting Agency Comment Spec In Lab Dillon Koch MD CHEMISTRY ORDERABLES [facility] [place] [address] * (ABNORMAL) Basic Metabolic Panel (non-fasting) (10/14/2017 1:36 PM EDT) Glucose 99 65 - 199 mg/dL [facility] Comment:Diabetes: >=200 mg/d L plus symptoms Blood Urea Nitrogen 18 10 - 20 mg/dL [facility] Creatinine 0.85 0.80 - 1.50 mg/dL [facility] Sodium 140 135 - 145 mmol/L [facility] Potassium 3.6 3.5 - 5.0 mmol/L [facility] Comment: Please note: ??Patients with WBC >100,000 may have falsely elevated Potassium levels. ??For accurate Potassium quantification in these patients send serum separator tube (gold top) for subsequent determinations. ??Contact the Clinical Chemistry Laboratory if there are any questions. Chloride 100 98 - 107 mmol/L [facility] Carbon Dioxide 23 22 - 31 mmol/L [facility] Anion Gap 17(H) 5 - 15 mmol/L [facility] Calcium 9.3 8.5 - 10.5 mg/dL [facility] Est Glomerular Filtration Rate >60 >=60 [facility] Comment: The reported eGFR should be multiplied by 1.2 for patients. The MDRD is not an appropriate measure of renal function for patients with body mass extremes or in patients with acute kidney failure. [email or web address] Blood specimen (specimen) 10/14/2017 1:36 PM EDT 10/14/2017 1:44 PM EDT Narrative Resulting Agency Comment Spec In Lab Dillon Koch MD CHEMISTRY ORDERABLES [facility] [place] [address] * Basic Metabolic Panel (non-fasting) (10/13/2017 11:54 PM EDT) Glucose 95 65 - 199 mg/dL [facility] Comment:Diabetes: >=200 mg/d L plus symptoms Blood Urea Nitrogen 15 10 - 20 mg/dL [facility] Creatinine 0.88 0.80 - 1.50 mg/dL [facility] Sodium 140 135 - 145 mmol/L [facility] Potassium 3.8 3.5 - 5.0 mmol/L [facility] Comment: Please note: ??Patients with WBC >100,000 may have falsely elevated Potassium levels. ??For accurate Potassium quantification in these patients send serum separator tube (gold top) for subsequent determinations. ??Contact the Clinical Chemistry Laboratory if there are any questions. Chloride 103 98 - 107 mmol/L [facility] Carbon Dioxide 24 22 - 31 mmol/L [facility] Anion Gap 13 5 - 15 mmol/L [facility] Calcium 8.6 8.5 - 10.5 mg/dL [facility] Est Glomerular Filtration Rate >60 >=60 [facility] Comment: The reported eGFR should be multiplied by 1.2 for patients. The MDRD is not an appropriate measure of renal function for patients with body mass extremes or in patients with acute kidney failure. [email or web address]ULSAnkf Blood specimen (specimen) 10/13/2017 11:54 PM EDT 10/13/2017 11:57 PM EDT Narrative Resulting Agency Comment Spec In Lab Dillon Koch MD CHEMISTRY ORDERABLES [facility] [place] [address] * (ABNORMAL) Basic Metabolic Panel (non-fasting) (10/13/2017 6:12 PM EDT) Glucose 107 65 - 199 mg/dL [facility] Comment:Diabetes: >=200 mg/d L plus symptoms Blood Urea Nitrogen 14 10 - 20 mg/dL [facility] Creatinine 0.69(L) 0.80 - 1.50 mg/dL [facility] Sodium 143 135 - 145 mmol/L [facility] Potassium 3.8 3.5 - 5.0 mmol/L [facility] Comment: Please note: ??Patients with WBC >100,000 may have falsely elevated Potassium levels. ??For accurate Potassium quantification in these patients send serum separator tube (gold top) for subsequent determinations. ??Contact the Clinical Chemistry Laboratory if there are any questions. Chloride 104 98 - 107 mmol/L [facility] Carbon Dioxide 23 22 - 31 mmol/L [facility] Anion Gap 16(H) 5 - 15 mmol/L [facility] Calcium 8.7 8.5 - 10.5 mg/dL [facility] Est Glomerular Filtration Rate >60 >=60 [facility] Comment: The reported eGFR should be multiplied by 1.2 for patients. The MDRD is not an appropriate measure of renal function for patients with body mass extremes or in patients with acute kidney failure. [email or web address] TULSAnkf Blood specimen (specimen) 10/13/2017 6:12 PM EDT 10/13/2017 6:18 PM EDT Narrative Resulting Agency Comment Spec In Lab Dillon Koch MD CHEMISTRY ORDERABLES [facility] [place] [address] * XR Pelvis Judet or In Out 3 views (10/13/2017 5:17 PM EDT) Anatomical Region Laterality Modality Pelvis N/A Digital Radiogra phy Impressions 10/14/2017 8:20 AM EDT Stable bony alignment. Stable position internal fixation device. No appreciable overlying sclerosis or bony callus. Narrative 10/14/2017 8:20 AM EDT EXAMINATION: XR PELVIS JUDET OR IN OUT 3 VIEWS CLINICAL HISTORY: judet views please, s/p 6 weeks from acetabular fracture TECHNIQUE: Q. Day views of the pelvis, right and left, 3 views COMPARISON: October 09September 19 and September 04, 2017 FINDINGS: Left acetabular and ischial internal plate and screw fixation present. Allowing for differences in projections, there has been no change in alignment of fixation device or bones. Projections of proximal and central acetabular fixation screws are obscured at angles obtained but I see no device fragmentation. No appreciable sclerosis or callus formation about internal fixation material. Sacrum is obscured by overlying bowel gas. Right hip joint unchanged. Procedure Note Beverley Valencia MD - 10/14/2017 EXAMINATION: XR PELVIS JUDET OR IN OUT 3 VIEWS CLINICAL HISTORY: judet views please, s/p 6 weeks from acetabularfracture TECHNIQUE: Q. Day views of the pelvis, right and left, 3 views COMPARISON: October 09September 19 and September 04, 2017 FINDINGS: Left acetabular and ischial internal plate and screw fixation present. Allowing for differences in projections, there has been no change inalignment of fixation device or bones. Projections of proximal and centralacetabular fixation screws are obscured at angles obtained but I see no device fragmentation. No appreciable sclerosis or callus formation aboutinternal fixation material. Sacrum is obscured by overlying bowel gas. Right hip joint unchanged. IMPRESSION Stable bony alignment. Stable position internal fixation device. Noappreciable overlying sclerosis or bony callus. Dillon Koch MD IMG DX ORDERABLES * (ABNORMAL) Basic Metabolic Panel (non-fasting) (10/13/2017 3:34 AM EDT) Glucose 93 65 - 199 mg/dL [facility] Comment:Diabetes: >=200 mg/d L plus symptoms Blood Urea Nitrogen 16 10 - 20 mg/dL [facility] Creatinine 0.74(L) 0.80 - 1.50 mg/dL [facility] Sodium 144 135 - 145 mmol/L [facility] Potassium 3.9 3.5 - 5.0 mmol/L [facility] Comment: Please note: ??Patients with WBC >100,000 may have falsely elevated Potassium levels. ??For accurate Potassium quantification in these patients send serum separator tube (gold top) for subsequent determinations. ??Contact the Clinical Chemistry Laboratory if there are any questions. Chloride 105 98 - 107 mmol/L [facility] Carbon Dioxide 23 22 - 31 mmol/L [facility] Anion Gap 16(H) 5 - 15 mmol/L [facility] Calcium 9.1 8.5 - 10.5 mg/dL [facility] Est Glomerular Filtration Rate >60 >=60 [facility] Comment: The reported eGFR should be multiplied by 1.2 for patients. The MDRD is not an appropriate measure of renal function for patients with body mass extremes or in patients with acute kidney failure. [email or web address] Blood specimen (specimen) 10/13/2017 3:34 AM EDT 10/13/2017 4:00 AM EDT Narrative Resulting Agency Comment Spec In Lab Dillon Koch MD CHEMISTRY ORDERABLES Performing Organization Address City/[facility]/ZIP Co de Phone Number [facility] [place] [address] * (ABNORMAL) Basic Metabolic Panel (non-fasting) (10/12/2017 7:09 PM EDT) Glucose 80 65 - 199 mg/dL [facility] Comment:Diabetes: >=200 mg/d L plus symptoms Blood Urea Nitrogen 17 10 - 20 mg/dL [facility] Creatinine 0.80 0.80 - 1.50 mg/dL [facility] Sodium 148(H) 135 - 145 mmol/L [facility] Potassium 3.6 3.5 - 5.0 mmol/L [facility] Comment: Please note: ??Patients with WBC >100,000 may have falsely elevated Potassium levels. ??For accurate Potassium quantification in these patients send serum separator tube (gold top) for subsequent determinations. ??Contact the Clinical Chemistry Laboratory if there are any questions. Chloride 106 98 - 107 mmol/L [facility] Carbon Dioxide 26 22 - 31 mmol/L [facility] Anion Gap 16(H) 5 - 15 mmol/L [facility] Calcium 9.2 8.5 - 10.5 mg/dL [facility] Est Glomerular Filtration Rate >60 >=60 [facility] Comment: The reported eGFR should be multiplied by 1.2 for patients. The MDRD is not an appropriate measure of renal function for patients with body mass extremes or in patients with acute kidney failure. [email or web address] Blood specimen (specimen) 10/12/2017 7:09 PM EDT 10/13/2017 5:09 AM EDT Narrative Resulting Agency Comment Spec In Lab Dillon Koch MD CHEMISTRY ORDERABLES Performing Organization Address City/[facility]/ZIP Co de Phone Number [facility] [place] [address] * (ABNORMAL) Basic Metabolic Panel (non-fasting) (10/12/2017 11:33 AM EDT) Glucose 117 65 - 199 mg/dL [facility] Comment:Diabetes: >=200 mg/d L plus symptoms Blood Urea Nitrogen 19 10 - 20 mg/dL [facility] Creatinine 0.78(L) 0.80 - 1.50 mg/dL [facility] Sodium 146(H) 135 - 145 mmol/L [facility] Potassium 3.8 3.5 - 5.0 mmol/L [facility] Comment: Please note: ??Patients with WBC >100,000 may have falsely elevated Potassium levels. ??For accurate Potassium quantification in these patients send serum separator tube (gold top) for subsequent determinations. ??Contact the Clinical Chemistry Laboratory if there are any questions. Chloride 108(H) 98 - 107 mmol/L [facility] Carbon Dioxide 22 22 - 31 mmol/L [facility] Anion Gap 16(H) 5 - 15 mmol/L [facility] Calcium 9.2 8.5 - 10.5 mg/dL [facility] Est Glomerular Filtration Rate >60 >=60 [facility] Comment: The reported eGFR should be multiplied by 1.2 for patients. The MDRD is not an appropriate measure of renal function for patients with body mass extremes or in patients with acute kidney failure. [email or web address] Blood specimen (specimen) 10/12/2017 11:33 AM EDT 10/12/2017 11:37 AM EDT Narrative Resulting Agency Comment Spec In Lab Dillon Koch MD CHEMISTRY ORDERABLES [facility] [place] [address] * Basic Metabolic Panel (non-fasting) (10/12/2017 3:34 AM EDT) Glucose 106 65 - 199 mg/dL [facility] Comment:Diabetes: >=200 mg/d L plus symptoms Blood Urea Nitrogen 20 10 - 20 mg/dL [facility] Creatinine 0.93 0.80 - 1.50 mg/dL [facility] Sodium 145 135 - 145 mmol/L [facility] Potassium 3.6 3.5 - 5.0 mmol/L [facility] Comment: Please note: ??Patients with WBC >100,000 may have falsely elevated Potassium levels. ??For accurate Potassium quantification in these patients send serum separator tube (gold top) for subsequent determinations. ??Contact the Clinical Chemistry Laboratory if there are any questions. Chloride 104 98 - 107 mmol/L [facility] Carbon Dioxide 26 22 - 31 mmol/L [facility] Anion Gap 15 5 - 15 mmol/L [facility] Calcium 9.1 8.5 - 10.5 mg/dL [facility] Est Glomerular Filtration Rate >60 >=60 [facility] Comment: The reported eGFR should be multiplied by 1.2 for patients. The MDRD is not an appropriate measure of renal function for patients with body mass extremes or in patients with acute kidney failure. [email or web address] Blood specimen (specimen) 10/12/2017 3:34 AM EDT 10/12/2017 4:02 AM EDT Narrative Resulting Agency Comment Spec In Lab Dillon Koch MD CHEMISTRY ORDERABLES [facility] [place] [address] * (ABNORMAL) Basic Metabolic Panel (non-fasting) (10/11/2017 8:48 PM EDT) Glucose 129 65 - 199 mg/dL [facility] Comment:Diabetes: >=200 mg/d L plus symptoms Blood Urea Nitrogen 22(H) 10 - 20 mg/dL [facility] Creatinine 1.03 0.80 - 1.50 mg/dL [facility] Sodium 143 135 - 145 mmol/L [facility] Potassium 4.0 3.5 - 5.0 mmol/L [facility] Comment: Please note: ??Patients with WBC >100,000 may have falsely elevated Potassium levels. ??For accurate Potassium quantification in these patients send serum separator tube (gold top) for subsequent determinations. ??Contact the Clinical Chemistry Laboratory if there are any questions. Chloride 102 98 - 107 mmol/L [facility] Carbon Dioxide 22 22 - 31 mmol/L [facility] Anion Gap 19(H) 5 - 15 mmol/L [facility] Calcium 9.3 8.5 - 10.5 mg/dL [facility] Est Glomerular Filtration Rate >60 >=60 [facility] Comment: The reported eGFR should be multiplied by 1.2 for patients. The MDRD is not an appropriate measure of renal function for patients with body mass extremes or in patients with acute kidney failure. [email or web address] Blood specimen (specimen) 10/11/2017 8:48 PM EDT 10/11/2017 8:51 PM EDT Narrative Resulting Agency Comment Spec In Lab Dillon Koch MD CHEMISTRY ORDERABLES [facility] [place] [address] * (ABNORMAL) Basic Metabolic Panel (non-fasting) (10/11/2017 11:46 AM EDT) Glucose 123 65 - 199 mg/dL [facility] Comment:Diabetes: >=200 mg/d L plus symptoms Blood Urea Nitrogen 20 10 - 20 mg/dL [facility] Creatinine 1.10 0.80 - 1.50 mg/dL [facility] Sodium 144 135 - 145 mmol/L [facility] Potassium 4.1 3.5 - 5.0 mmol/L [facility] Comment: Please note: ??Patients with WBC >100,000 may have falsely elevated Potassium levels. ??For accurate Potassium quantification in these patients send serum separator tube (gold top) for subsequent determinations. ??Contact the Clinical Chemistry Laboratory if there are any questions. Chloride 104 98 - 107 mmol/L [facility] Carbon Dioxide 22 22 - 31 mmol/L [facility] Anion Gap 18(H) 5 - 15 mmol/L [facility] Calcium 9.7 8.5 - 10.5 mg/dL [facility] Est Glomerular Filtration Rate >60 >=60 [facility] Comment: The reported eGFR should be multiplied by 1.2 for patients. The MDRD is not an appropriate measure of renal function for patients with body mass extremes or in patients with acute kidney failure. [email or web address] Blood specimen (specimen) 10/11/2017 11:46 AM EDT 10/11/2017 11:54 AM EDT Narrative Resulting Agency Comment Spec In Lab Dillon Koch MD CHEMISTRY ORDERABLES Performing Organization Address City/State/[facility] Co de Phone Number [facility] [place] [address] * (ABNORMAL) Basic Metabolic Panel (non-fasting) (10/11/2017 6:05 AM EDT) Glucose 84 65 - 199 mg/dL [facility] Comment:Diabetes: >=200 mg/d L plus symptoms Blood Urea Nitrogen 21(H) 10 - 20 mg/dL [facility] Creatinine 1.09 0.80 - 1.50 mg/dL [facility] Sodium 151(H) 135 - 145 mmol/L [facility] Potassium 3.8 3.5 - 5.0 mmol/L [facility] Comment: Please note: ??Patients with WBC >100,000 may have falsely elevated Potassium levels. ??For accurate Potassium quantification in these patients send serum separator tube (gold top) for subsequent determinations. ??Contact the Clinical Chemistry Laboratory if there are any questions. Chloride 109(H) 98 - 107 mmol/L [facility] Carbon Dioxide 24 22 - 31 mmol/L [facility] Anion Gap 18(H) 5 - 15 mmol/L [facility] Calcium 9.5 8.5 - 10.5 mg/dL [facility] Est Glomerular Filtration Rate >60 >=60 [facility] Comment: The reported eGFR should be multiplied by 1.2 for patients. The MDRD is not an appropriate measure of renal function for patients with body mass extremes or in patients with acute kidney failure. [email or web address] Blood specimen (specimen) 10/11/2017 6:05 AM EDT 10/11/2017 6:38 AM EDT Narrative Resulting Agency Comment Spec In Lab Dillon Koch MD CHEMISTRY ORDERABLES [facility] [place] [address] * (ABNORMAL) Basic Metabolic Panel (non-fasting) (10/10/2017 8:05 PM EDT) Glucose 107 65 - 199 mg/dL [facility] Comment:Diabetes: >=200 mg/d L plus symptoms Blood Urea Nitrogen 24(H) 10 - 20 mg/dL [facility] Creatinine 1.35 0.80 - 1.50 mg/dL [facility] Sodium 153(H) 135 - 145 mmol/L [facility] Potassium 3.9 3.5 - 5.0 mmol/L [facility] Comment: Please note: ??Patients with WBC >100,000 may have falsely elevated Potassium levels. ??For accurate Potassium quantification in these patients send serum separator tube (gold top) for subsequent determinations. ??Contact the Clinical Chemistry Laboratory if there are any questions. Chloride 112(H) 98 - 107 mmol/L [facility] Carbon Dioxide 23 22 - 31 mmol/L [facility] Anion Gap 18(H) 5 - 15 mmol/L [facility] Calcium 9.5 8.5 - 10.5 mg/dL [facility] Est Glomerular Filtration Rate >60 >=60 [facility] Comment: The reported eGFR should be multiplied by 1.2 for patients. The MDRD is not an appropriate measure of renal function for patients with body mass extremes or in patients with acute kidney failure. [email or web address] Blood specimen (specimen) 10/10/2017 8:05 PM EDT 10/10/2017 8:11 PM EDT Narrative Resulting Agency Comment Spec In Lab Dillon Koch MD CHEMISTRY ORDERABLES [facility] [place] [address] * (ABNORMAL) Basic Metabolic Panel (non-fasting) (10/10/2017 11:24 AM EDT) Glucose 96 65 - 199 mg/dL [facility] Comment:Diabetes: >=200 mg/d L plus symptoms Blood Urea Nitrogen 20 10 - 20 mg/dL [facility] Creatinine 1.01 0.80 - 1.50 mg/dL [facility] Sodium 150(H) 135 - 145 mmol/L [facility] Potassium 3.7 3.5 - 5.0 mmol/L [facility] Comment: Please note: ??Patients with WBC >100,000 may have falsely elevated Potassium levels. ??For accurate Potassium quantification in these patients send serum separator tube (gold top) for subsequent determinations. ??Contact the Clinical Chemistry Laboratory if there are any questions. Chloride 111(H) 98 - 107 mmol/L [facility] Carbon Dioxide 23 22 - 31 mmol/L [facility] Anion Gap 16(H) 5 - 15 mmol/L [facility] Calcium 9.8 8.5 - 10.5 mg/dL [facility] Est Glomerular Filtration Rate >60 >=60 [facility] Comment: The reported eGFR should be multiplied by 1.2 for patients. The MDRD is not an appropriate measure of renal function for patients with body mass extremes or in patients with acute kidney failure. [email or web address] Blood specimen (specimen) 10/10/2017 11:24 AM EDT 10/10/2017 11:45 AM EDT Narrative Resulting Agency Comment Spec In Lab Dillon Koch MD CHEMISTRY ORDERABLES Performing Organization Address City/State/[facility] Co de Phone Number [facility] [place] [phone] * (ABNORMAL) Basic Metabolic Panel (non-fasting) (10/10/2017 3:14 AM EDT) Glucose 98 65 - 199 mg/dL [facility] Comment:Diabetes: >=200 mg/d L plus symptoms Blood Urea Nitrogen 20 10 - 20 mg/dL [facility] Creatinine 0.91 0.80 - 1.50 mg/dL [facility] Sodium 154(H) 135 - 145 mmol/L [facility] Comment:result rechecked-jt Potassium 4.2 3.5 - 5.0 mmol/L [facility] Comment: Please note: ??Patients with WBC >100,000 may have falsely elevated Potassium levels. ??For accurate Potassium quantification in these patients send serum separator tube (gold top) for subsequent determinations. ??Contact the Clinical Chemistry Laboratory if there are any questions. Chloride 114(H) 98 - 107 mmol/L [facility] Comment:result rechecked-jt Carbon Dioxide 23 22 - 31 mmol/L [facility] Anion Gap 17(H) 5 - 15 mmol/L [facility] Calcium 9.5 8.5 - 10.5 mg/dL [facility] Est Glomerular Filtration Rate >60 >=60 [facility] Comment: The reported eGFR should be multiplied by 1.2 for patients. The MDRD is not an appropriate measure of renal function for patients with body mass extremes or in patients with acute kidney failure. [email or web address] Blood specimen (specimen) 10/10/2017 3:14 AM EDT 10/10/2017 3:23 AM EDT Narrative Resulting Agency Comment Spec In Lab Jevon Rosales MD CHEMISTRY ORDERABLES [facility] [place] [address] * XR Pelvis (Generic) (10/09/2017 4:52 PM EDT) Anatomical Region Laterality Modality Pelvis N/A Digital Radiogra phy Impressions 10/09/2017 7:30 PM EDT Unchanged osseous alignment. Difficult to identify interval callus formation/healing. No equipment complication seen. Narrative 10/09/2017 7:30 PM EDT EXAMINATION: XR PELVIS (GENERIC) CLINICAL HISTORY: evaluate for healing of pelvic fracture TECHNIQUE: AP pelvis. COMPARISON: 09/23/2017. FINDINGS: Allowing for differences in patient position, no appreciable change in position of plate and screw fixation the region of the left acetabulum. Unchanged osseous alignment. Difficult to identify any callus formation to the region of fracture. No hardware complication is seen. Procedure Note Gretel Ojeda MD - 10/09/2017 EXAMINATION: XR PELVIS (GENERIC) CLINICAL HISTORY: evaluate for healing of pelvic fracture TECHNIQUE: AP pelvis. COMPARISON: 09/23/2017. FINDINGS: Allowing for differences in patient position, no appreciablechange in position of plate and screw fixation the region of the left acetabulum. Unchanged osseous alignment. Difficult to identify any callus formation tothe region of fracture. No hardware complication is seen. IMPRESSION Unchanged osseous alignment. Difficult to identify interval callus formation/healing. No equipment complication seen. Jevon Rosales MD IMG DX ORDERABLES * (ABNORMAL) Basic Metabolic Panel (non-fasting) (10/08/2017 4:15 AM EDT) Glucose 91 65 - 199 mg/dL [facility] Comment:Diabetes: >=200 mg/d L plus symptoms Blood Urea Nitrogen 13 10 - 20 mg/dL [facility] Creatinine 0.82 0.80 - 1.50 mg/dL [facility] Sodium 135 135 - 145 mmol/L [facility] Potassium 3.6 3.5 - 5.0 mmol/L [facility] Comment: Please note: ??Patients with WBC >100,000 may have falsely elevated Potassium levels. ??For accurate Potassium quantification in these patients send serum separator tube (gold top) for subsequent determinations. ??Contact the Clinical Chemistry Laboratory if there are any questions. Chloride 97(L) 98 - 107 mmol/L [facility] Carbon Dioxide 22 22 - 31 mmol/L [facility] Anion Gap 16(H) 5 - 15 mmol/L [facility] Calcium 9.0 8.5 - 10.5 mg/dL [facility] Est Glomerular Filtration Rate >60 >=60 [facility] Comment: The reported eGFR should be multiplied by 1.2 for patients. The MDRD is not an appropriate measure of renal function for patients with body mass extremes or in patients with acute kidney failure. [email or web address] Blood specimen (specimen) 10/08/2017 4:15 AM EDT 10/08/2017 4:46 AM EDT Narrative Resulting Agency Comment Spec In Lab Jevon Rosales MD CHEMISTRY ORDERABLES Performing Organization Address City/[facility]/ZIP Co de Phone Number [facility] [place] [address] * (ABNORMAL) Basic Metabolic Panel (non-fasting) (10/07/2017 4:15 AM EDT) Glucose 95 65 - 199 mg/dL [facility] Comment:Diabetes: >=200 mg/d L plus symptoms Blood Urea Nitrogen 12 10 - 20 mg/dL [facility] Creatinine 0.80 0.80 - 1.50 mg/dL [facility] Sodium 137 135 - 145 mmol/L [facility] Potassium 3.9 3.5 - 5.0 mmol/L [facility] Comment: Please note: ??Patients with WBC >100,000 may have falsely elevated Potassium levels. ??For accurate Potassium quantification in these patients send serum separator tube (gold top) for subsequent determinations. ??Contact the Clinical Chemistry Laboratory if there are any questions. Chloride 99 98 - 107 mmol/L [facility] Carbon Dioxide 22 22 - 31 mmol/L [facility] Anion Gap 16(H) 5 - 15 mmol/L [facility] Calcium 9.0 8.5 - 10.5 mg/dL [facility] Est Glomerular Filtration Rate >60 >=60 [facility] Comment: The reported eGFR should be multiplied by 1.2 for patients. The MDRD is not an appropriate measure of renal function for patients with body mass extremes or in patients with acute kidney failure. [email or web address] Blood specimen (specimen) 10/07/2017 4:15 AM EDT 10/07/2017 4:24 AM EDT Narrative Resulting Agency Comment Spec In Lab Jevon Rosales MD CHEMISTRY ORDERABLES Performing Organization Address [facility]/ZIP Co de Phone Number [facility] [place] [address] * Lavender Tube HOLD (10/06/2017 4:05 AM EDT) Lavender Hold Sample in lab. [facility] Blood specimen (specimen) Venous Draw / Unknown 10/06/2017 4:05 AM EDT 10/06/2017 4:31 AM EDT Reba Linton MD HEMATOLOGY ORDER LYNDSEY [facility] [place] [address] * Basic Metabolic Panel (non-fasting) (10/06/2017 4:05 AM EDT) Glucose 103 65 - 199 mg/dL [facility] Comment:Diabetes: >=200 mg/d L plus symptoms Blood Urea Nitrogen 18 10 - 20 mg/dL [facility] Creatinine 0.88 0.80 - 1.50 mg/dL [facility] Sodium 145 135 - 145 mmol/L [facility] Potassium 3.7 3.5 - 5.0 mmol/L [facility] Comment: Please note: ??Patients with WBC >100,000 may have falsely elevated Potassium levels. ??For accurate Potassium quantification in these patients send serum separator tube (gold top) for subsequent determinations. ??Contact the Clinical Chemistry Laboratory if there are any questions. Chloride 104 98 - 107 mmol/L [facility] Carbon Dioxide 27 22 - 31 mmol/L [facility] Anion Gap 14 5 - 15 mmol/L [facility] Calcium 9.0 8.5 - 10.5 mg/dL [facility] Est Glomerular Filtration Rate >60 >=60 [facility] Comment: The reported eGFR should be multiplied by 1.2 for patients. The MDRD is not an appropriate measure of renal function for patients with body mass extremes or in patients with acute kidney failure. [email or web address] Blood specimen (specimen) 10/06/2017 4:05 AM EDT 10/06/2017 4:31 AM EDT Narrative Resulting Agency Comment Spec In Lab Reba Linton MD CHEMISTRY ORDERA BLES [facility] [place] [address] * (ABNORMAL) Basic Metabolic Panel (non-fasting) (10/05/2017 2:35 PM EDT) Glucose 86 65 - 199 mg/dL [facility] Comment:Diabetes: >=200 mg/d L plus symptoms Blood Urea Nitrogen 18 10 - 20 mg/dL [facility] Creatinine 1.03 0.80 - 1.50 mg/dL [facility] Sodium 148(H) 135 - 145 mmol/L [facility] Potassium 4.0 3.5 - 5.0 mmol/L [facility] Comment: Please note: ??Patients with WBC >100,000 may have falsely elevated Potassium levels. ??For accurate Potassium quantification in these patients send serum separator tube (gold top) for subsequent determinations. ??Contact the Clinical Chemistry Laboratory if there are any questions. Chloride 105 98 - 107 mmol/L [facility] Carbon Dioxide 28 22 - 31 mmol/L [facility] Anion Gap 15 5 - 15 mmol/L [facility] Calcium 9.3 8.5 - 10.5 mg/dL [facility] Est Glomerular Filtration Rate >60 >=60 [facility] Comment: The reported eGFR should be multiplied by 1.2 for patients. The MDRD is not an appropriate measure of renal function for patients with body mass extremes or in patients with acute kidney failure. [email or web address] Blood specimen (specimen) 10/05/2017 2:35 PM EDT 10/05/2017 2:46 PM EDT Narrative Resulting Agency Comment Spec In Lab Reba Linton MD CHEMISTRY ORDERA BLES Performing Organization Address City/[facility]/ZIP Co de Phone Number [facility] [place] [address] * Differential, Automated (10/05/2017 5:55 AM EDT) Neutrophil % 42.4 % [facility] Neutrophil Absolute 2.71 1.70 - 6.10 x10(3)/[facility] Lymph % 38.2 % [facility] Lymphocytes Abs 2.4 0.9 - 3.2 x10(3)/[facility] Monocyte % 12.5 % [facility] Monocyte Abs 0.8 0.3 - 0.9 x10(3)/[facility] Eos % 5.5 % [facility] Eosinophils Abs 0.4 0.0 - 0.4 x10(3)/[facility] Basophil % 0.8 % [facility] Baso Absolute 0.0 0.0 - 0.1 x10(3)/[facility] Immature Gran % 0.60 % [facility] Comment: Immature granulocytes(IG's)percentage and absolute count will include metamyelocytes, myelocytes, and promyelocytes. Blood smears from CBCs yielding IG's will be scanned manually for concordance. If this scan disagrees with the automated IG or if promyelocytes are noted, a manual differential will be performed. Immature Gran Absolute 0.04 0.00 - 0.04 x10(3)/[facility] Blood specimen (specimen) 10/05/2017 5:55 AM EDT 10/05/2017 6:19 AM EDT Narrative Resulting Agency Comment Spec In Lab Reba Linton MD HEMATOLOGY ORDER LYNDSEY Performing Organization Address City/[facility]/ZIP Co de Phone Number [facility] [place] [address] * (ABNORMAL) Hemogram (10/05/2017 5:55 AM EDT) White Blood Cell 6.4 4.0 - 9.5 x10(3)/mc L [facility] Red Blood Cell 4.47(L) 4.58 - 5.54 x10(6)/ L [facility] Hemoglobin 11.1(L) 13.7 - 16.5 gm/dL [facility] Hematocrit 38.6(L) 40.5 - 48.5 % [facility] Mean Cell Volume 86.4 82.9 - 93.1 fL [facility] Mean Cell Hemoglobin 24.8(L) 27.5 - 32.1 pg [facility] Mean Cell Hemoglobin Concentration 28.8(L) 32.0 - 35.7 gm/dL [facility] Platelet 281 145 - 357 x10(3)/ L [facility] RDW Standard Deviation 49.7(H) 36.0 - 45.0 [facility] RDW coefficient of variation 15.7(H) 11.4 - 13.8 % [facility] Mean Platelet Volume 9.4 7.6 - 12.9 [facility] NRBC% auto 0.0 % [facility] NRBC Absolute 0.000 0.000 - 0.000 x10(3)/ L [facility] Blood specimen (specimen) 10/05/2017 5:55 AM EDT 10/05/2017 6:19 AM EDT Narrative Resulting Agency Comment Spec In Lab Reba Linton MD HEMATOLOGY ORDER LYNDSEY [facility] [place] [address] * (ABNORMAL) Basic Metabolic Panel (non-fasting) (10/05/2017 3:51 AM EDT) Glucose 105 65 - 199 mg/dL [facility] Comment:Diabetes: >=200 mg/d L plus symptoms Blood Urea Nitrogen 19 10 - 20 mg/dL [facility] Creatinine 1.07 0.80 - 1.50 mg/dL [facility] Sodium 148(H) 135 - 145 mmol/L [facility] Potassium 3.9 3.5 - 5.0 mmol/L [facility] Comment: Please note: ??Patients with WBC >100,000 may have falsely elevated Potassium levels. ??For accurate Potassium quantification in these patients send serum separator tube (gold top) for subsequent determinations. ??Contact the Clinical Chemistry Laboratory if there are any questions. Chloride 107 98 - 107 mmol/L [facility] Carbon Dioxide 27 22 - 31 mmol/L [facility] Anion Gap 14 5 - 15 mmol/L [facility] Calcium 9.4 8.5 - 10.5 mg/dL [facility] Est Glomerular Filtration Rate >60 >=60 [facility] Comment: The reported eGFR should be multiplied by 1.2 for patients. The MDRD is not an appropriate measure of renal function for patients with body mass extremes or in patients with acute kidney failure. [email or web address] Blood specimen (specimen) 10/05/2017 3:51 AM EDT 10/05/2017 4:30 AM EDT Narrative Resulting Agency Comment Spec In Lab Reba Linton MD CHEMISTRY ORDERA [facility] [place] [address] * (ABNORMAL) Basic Metabolic Panel (non-fasting) (10/04/2017 7:09 PM EDT) Glucose 120 65 - 199 mg/dL [facility] Comment:Diabetes: >=200 mg/d L plus symptoms Blood Urea Nitrogen 19 10 - 20 mg/dL [facility] Creatinine 1.16 0.80 - 1.50 mg/dL [facility] Sodium 147(H) 135 - 145 mmol/L [facility] Potassium 3.7 3.5 - 5.0 mmol/L [facility] Comment: Please note: ??Patients with WBC >100,000 may have falsely elevated Potassium levels. ??For accurate Potassium quantification in these patients send serum separator tube (gold top) for subsequent determinations. ??Contact the Clinical Chemistry Laboratory if there are any questions. Chloride 104 98 - 107 mmol/L [facility] Carbon Dioxide 29 22 - 31 mmol/L [facility] Anion Gap 14 5 - 15 mmol/L [facility] Calcium 9.4 8.5 - 10.5 mg/dL [facility] Est Glomerular Filtration Rate >60 >=60 [facility] Comment: The reported eGFR should be multiplied by 1.2 for patients. The MDRD is not an appropriate measure of renal function for patients with body mass extremes or in patients with acute kidney failure. [email or web address] Blood specimen (specimen) 10/04/2017 7:09 PM EDT 10/04/2017 7:13 PM EDT Narrative Resulting Agency Comment Spec In Lab Kemi Camp APRN CHEMISTRY ORDERAB LES [facility] [place] [address] * (ABNORMAL) Basic Metabolic Panel (non-fasting) (10/04/2017 12:48 PM EDT) Glucose 92 65 - 199 mg/dL [facility] Comment:Diabetes: >=200 mg/d L plus symptoms Blood Urea Nitrogen 20 10 - 20 mg/dL [facility] Creatinine 0.97 0.80 - 1.50 mg/dL [facility] Sodium 147(H) 135 - 145 mmol/L [facility] Potassium 3.8 3.5 - 5.0 mmol/L [facility] Comment: Please note: ??Patients with WBC >100,000 may have falsely elevated Potassium levels. ??For accurate Potassium quantification in these patients send serum separator tube (gold top) for subsequent determinations. ??Contact the Clinical Chemistry Laboratory if there are any questions. Chloride 103 98 - 107 mmol/L [facility] Carbon Dioxide 29 22 - 31 mmol/L [facility] Anion Gap 15 5 - 15 mmol/L [facility] Calcium 9.5 8.5 - 10.5 mg/dL [facility] Est Glomerular Filtration Rate >60 >=60 [facility] Comment: The reported eGFR should be multiplied by 1.2 for patients. The MDRD is not an appropriate measure of renal function for patients with body mass extremes or in patients with acute kidney failure. [email or web address] Blood specimen (specimen) 10/04/2017 12:48 PM EDT 10/04/2017 1:00 PM EDT Narrative Resulting Agency Comment Spec In Lab Kemi Camp APRN CHEMISTRY ORDERAB LES [facility] [place] [address] * (ABNORMAL) Basic Metabolic Panel (non-fasting) (10/04/2017 5:01 AM EDT) Glucose 94 65 - 199 mg/dL [facility] Comment:Diabetes: >=200 mg/d L plus symptoms Blood Urea Nitrogen 20 10 - 20 mg/dL [facility] Creatinine 1.11 0.80 - 1.50 mg/dL [facility] Sodium 146(H) 135 - 145 mmol/L [facility] Potassium 3.8 3.5 - 5.0 mmol/L [facility] Comment: Please note: ??Patients with WBC >100,000 may have falsely elevated Potassium levels. ??For accurate Potassium quantification in these patients send serum separator tube (gold top) for subsequent determinations. ??Contact the Clinical Chemistry Laboratory if there are any questions. Chloride 103 98 - 107 mmol/L [facility] Carbon Dioxide 26 22 - 31 mmol/L [facility] Anion Gap 17(H) 5 - 15 mmol/L [facility] Calcium 9.5 8.5 - 10.5 mg/dL [facility] Est Glomerular Filtration Rate >60 >=60 [facility] Comment: The reported eGFR should be multiplied by 1.2 for patients. The MDRD is not an appropriate measure of renal function for patients with body mass extremes or in patients with acute kidney failure. [email or web address] Blood specimen (specimen) 10/04/2017 5:01 AM EDT 10/04/2017 5:44 AM EDT Narrative Resulting Agency Comment Spec In Lab Kmei Camp APRN CHEMISTRY ORDERAB LES [facility] [place] [address] * (ABNORMAL) Basic Metabolic Panel (non-fasting) (10/03/2017 7:48 PM EDT) Glucose 86 65 - 199 mg/dL [facility] Comment:Diabetes: >=200 mg/d L plus symptoms Blood Urea Nitrogen 21(H) 10 - 20 mg/dL [facility] Creatinine 1.03 0.80 - 1.50 mg/dL [facility] Sodium 148(H) 135 - 145 mmol/L [facility] Potassium 4.3 3.5 - 5.0 mmol/L [facility] Comment: Please note: ??Patients with WBC >100,000 may have falsely elevated Potassium levels. ??For accurate Potassium quantification in these patients send serum separator tube (gold top) for subsequent determinations. ??Contact the Clinical Chemistry Laboratory if there are any questions. Chloride 104 98 - 107 mmol/L [facility] Carbon Dioxide 29 22 - 31 mmol/L [facility] Anion Gap 15 5 - 15 mmol/L [facility] Calcium 9.6 8.5 - 10.5 mg/dL [facility] Est Glomerular Filtration Rate >60 >=60 [facility] Comment: The reported eGFR should be multiplied by 1.2 for patients. The MDRD is not an appropriate measure of renal function for patients with body mass extremes or in patients with acute kidney failure. [email or web address] Blood specimen (specimen) 10/03/2017 7:48 PM EDT 10/03/2017 7:52 PM EDT Narrative Resulting Agency Comment Spec In Lab Kemi Camp APRN CHEMISTRY ORDERAB LES [facility] [place] [address] * (ABNORMAL) Basic Metabolic Panel (non-fasting) (10/03/2017 11:36 AM EDT) Glucose 108 65 - 199 mg/dL [facility] Comment:Diabetes: >=200 mg/d L plus symptoms Blood Urea Nitrogen 15 10 - 20 mg/dL [facility] Creatinine 1.04 0.80 - 1.50 mg/dL [facility] Sodium 146(H) 135 - 145 mmol/L [facility] Potassium 3.7 3.5 - 5.0 mmol/L [facility] Comment: Please note: ??Patients with WBC >100,000 may have falsely elevated Potassium levels. ??For accurate Potassium quantification in these patients send serum separator tube (gold top) for subsequent determinations. ??Contact the Clinical Chemistry Laboratory if there are any questions. Chloride 102 98 - 107 mmol/L [facility] Carbon Dioxide 28 22 - 31 mmol/L [facility] Anion Gap 16(H) 5 - 15 mmol/L [facility] Calcium 9.9 8.5 - 10.5 mg/dL [facility] Est Glomerular Filtration Rate >60 >=60 [facility] Comment: The reported eGFR should be multiplied by 1.2 for patients. The MDRD is not an appropriate measure of renal function for patients with body mass extremes or in patients with acute kidney failure. [email or web address] Blood specimen (specimen) 10/03/2017 11:36 AM EDT 10/03/2017 12:02 PM EDT Narrative Resulting Agency Comment Spec In Lab Kemi Camp APRN CHEMISTRY ORDERAB LES Performing Organization Address City/State/[facility] Co de Phone Number [facility] [place] [address] * (ABNORMAL) Basic Metabolic Panel (non-fasting) (10/03/2017 4:15 AM EDT) Glucose 96 65 - 199 mg/dL [facility] Comment:Diabetes: >=200 mg/d L plus symptoms Blood Urea Nitrogen 15 10 - 20 mg/dL [facility] Creatinine 0.86 0.80 - 1.50 mg/dL [facility] Sodium 146(H) 135 - 145 mmol/L [facility] Potassium 3.9 3.5 - 5.0 mmol/L [facility] Comment: Please note: ??Patients with WBC >100,000 may have falsely elevated Potassium levels. ??For accurate Potassium quantification in these patients send serum separator tube (gold top) for subsequent determinations. ??Contact the Clinical Chemistry Laboratory if there are any questions. Chloride 106 98 - 107 mmol/L [facility] Carbon Dioxide 26 22 - 31 mmol/L [facility] Anion Gap 14 5 - 15 mmol/L [facility] Calcium 9.5 8.5 - 10.5 mg/dL [facility] Est Glomerular Filtration Rate >60 >=60 [facility] Comment: The reported eGFR should be multiplied by 1.2 for patients. The MDRD is not an appropriate measure of renal function for patients with body mass extremes or in patients with acute kidney failure. [email or web address] Blood specimen (specimen) 10/03/2017 4:15 AM EDT 10/03/2017 4:25 AM EDT Narrative Resulting Agency Comment Spec In Lab Kemi Camp APRN CHEMISTRY ORDERAB LES [facility] [place] [address] * (ABNORMAL) Basic Metabolic Panel (non-fasting) (10/02/2017 7:12 PM EDT) Glucose 114 65 - 199 mg/dL [facility] Comment:Diabetes: >=200 mg/d L plus symptoms Blood Urea Nitrogen 15 10 - 20 mg/dL [facility] Creatinine 0.95 0.80 - 1.50 mg/dL [facility] Sodium 146(H) 135 - 145 mmol/L [facility] Potassium 4.0 3.5 - 5.0 mmol/L [facility] Comment: Please note: ??Patients with WBC >100,000 may have falsely elevated Potassium levels. ??For accurate Potassium quantification in these patients send serum separator tube (gold top) for subsequent determinations. ??Contact the Clinical Chemistry Laboratory if there are any questions. Chloride 105 98 - 107 mmol/L [facility] Carbon Dioxide 24 22 - 31 mmol/L [facility] Anion Gap 17(H) 5 - 15 mmol/L [facility] Calcium 9.3 8.5 - 10.5 mg/dL [facility] Est Glomerular Filtration Rate >60 >=60 [facility] Comment: The reported eGFR should be multiplied by 1.2 for patients. The MDRD is not an appropriate measure of renal function for patients with body mass extremes or in patients with acute kidney failure. [email or web address] Blood specimen (specimen) 10/02/2017 7:12 PM EDT 10/02/2017 7:24 PM EDT Narrative Resulting Agency Comment Spec In Lab Kemi Camp APRN CHEMISTRY ORDERAB LES [facility] [place] [address] * (ABNORMAL) Basic Metabolic Panel (non-fasting) (10/02/2017 12:14 PM EDT) Glucose 84 65 - 199 mg/dL [facility] Comment:Diabetes: >=200 mg/d L plus symptoms Blood Urea Nitrogen 13 10 - 20 mg/dL [facility] Creatinine 0.84 0.80 - 1.50 mg/dL [facility] Sodium 146(H) 135 - 145 mmol/L [facility] Potassium 4.3 3.5 - 5.0 mmol/L [facility] Comment: Please note: ??Patients with WBC >100,000 may have falsely elevated Potassium levels. ??For accurate Potassium quantification in these patients send serum separator tube (gold top) for subsequent determinations. ??Contact the Clinical Chemistry Laboratory if there are any questions. Chloride 105 98 - 107 mmol/L [facility] Carbon Dioxide 25 22 - 31 mmol/L [facility] Anion Gap 16(H) 5 - 15 mmol/L [facility] Calcium 9.5 8.5 - 10.5 mg/dL [facility] Est Glomerular Filtration Rate >60 >=60 [facility] Comment: The reported eGFR should be multiplied by 1.2 for patients. The MDRD is not an appropriate measure of renal function for patients with body mass extremes or in patients with acute kidney failure. [email or web address] TULSAnkf Blood specimen (specimen) 10/02/2017 12:14 PM EDT 10/02/2017 12:24 PM EDT Narrative Resulting Agency Comment Spec In Lab Kemi Camp APRN CHEMISTRY ORDERAB LES [facility] [place] [address] * Basic Metabolic Panel (non-fasting) (10/02/2017 5:45 AM EDT) Glucose 83 65 - 199 mg/dL [facility] Comment:Diabetes: >=200 mg/d L plus symptoms Blood Urea Nitrogen 15 10 - 20 mg/dL [facility] Creatinine 0.85 0.80 - 1.50 mg/dL [facility] Sodium 143 135 - 145 mmol/L [facility] Potassium 4.0 3.5 - 5.0 mmol/L [facility] Comment: Please note: ??Patients with WBC >100,000 may have falsely elevated Potassium levels. ??For accurate Potassium quantification in these patients send serum separator tube (gold top) for subsequent determinations. ??Contact the Clinical Chemistry Laboratory if there are any questions. Chloride 103 98 - 107 mmol/L [facility] Carbon Dioxide 26 22 - 31 mmol/L [facility] Anion Gap 14 5 - 15 mmol/L [facility] Calcium 9.4 8.5 - 10.5 mg/dL [facility] Est Glomerular Filtration Rate >60 >=60 [facility] Comment: The reported eGFR should be multiplied by 1.2 for patients. The MDRD is not an appropriate measure of renal function for patients with body mass extremes or in patients with acute kidney failure. [email or web address] [email or web address] TULSAnkf Blood specimen (specimen) 10/02/2017 5:45 AM EDT 10/02/2017 6:07 AM EDT Narrative Resulting Agency Comment Spec In Lab Kemi Camp APRN CHEMISTRY ORDERAB LES [facility] [place] [address] * Basic Metabolic Panel (non-fasting) (10/01/2017 8:22 PM EDT) Glucose 105 65 - 199 mg/dL [facility] Comment:Diabetes: >=200 mg/d L plus symptoms Blood Urea Nitrogen 14 10 - 20 mg/dL [facility] Creatinine 0.95 0.80 - 1.50 mg/dL [facility] Sodium 139 135 - 145 mmol/L [facility] Potassium 4.3 3.5 - 5.0 mmol/L [facility] Comment: Please note: ??Patients with WBC >100,000 may have falsely elevated Potassium levels. ??For accurate Potassium quantification in these patients send serum separator tube (gold top) for subsequent determinations. ??Contact the Clinical Chemistry Laboratory if there are any questions. Chloride 100 98 - 107 mmol/L [facility] Carbon Dioxide 26 22 - 31 mmol/L [facility] Anion Gap 13 5 - 15 mmol/L [facility] Calcium 9.1 8.5 - 10.5 mg/dL [facility] Est Glomerular Filtration Rate >60 >=60 [facility] Comment: The reported eGFR should be multiplied by 1.2 for patients. The MDRD is not an appropriate measure of renal function for patients with body mass extremes or in patients with acute kidney failure. [email or web address] Blood specimen (specimen) 10/01/2017 8:22 PM EDT 10/01/2017 8:35 PM EDT Narrative Resulting Agency Comment Spec In Lab Kemi Corbin Marya MAX CHEMISTRY ORDERAB LES Performing Organization Address City/[facility]/ZIP Co de Phone Number [facility] [place] [address] * (ABNORMAL) Basic Metabolic Panel (non-fasting) (10/01/2017 12:08 PM EDT) Glucose 75 65 - 199 mg/dL [facility] Comment:Diabetes: >=200 mg/d L plus symptoms Blood Urea Nitrogen 12 10 - 20 mg/dL [facility] Creatinine 0.78(L) 0.80 - 1.50 mg/dL [facility] Sodium 137 135 - 145 mmol/L [facility] Potassium 4.3 3.5 - 5.0 mmol/L [facility] Comment: Please note: ??Patients with WBC >100,000 may have falsely elevated Potassium levels. ??For accurate Potassium quantification in these patients send serum separator tube (gold top) for subsequent determinations. ??Contact the Clinical Chemistry Laboratory if there are any questions. Chloride 97(L) 98 - 107 mmol/L [facility] Carbon Dioxide 24 22 - 31 mmol/L [facility] Anion Gap 16(H) 5 - 15 mmol/L [facility] Calcium 9.3 8.5 - 10.5 mg/dL [facility] Est Glomerular Filtration Rate >60 >=60 [facility] Comment: The reported eGFR should be multiplied by 1.2 for patients. The MDRD is not an appropriate measure of renal function for patients with body mass extremes or in patients with acute kidney failure. [email or web address] Blood specimen (specimen) 10/01/2017 12:08 PM EDT 10/01/2017 12:14 PM EDT Narrative Resulting Agency Comment Spec In Lab Kemi E Marya MAX CHEMISTRY ORDERAB LES Performing Organization Address City/[facility]/ZIP Co de Phone Number [facility] [place] [address] * (ABNORMAL) Basic Metabolic Panel (non-fasting) (10/01/2017 3:41 AM EDT) Glucose 99 65 - 199 mg/dL [facility] Comment:Diabetes: >=200 mg/d L plus symptoms Blood Urea Nitrogen 13 10 - 20 mg/dL [facility] Creatinine 0.70(L) 0.80 - 1.50 mg/dL [facility] Sodium 130(L) 135 - 145 mmol/L [facility] Potassium 3.8 3.5 - 5.0 mmol/L [facility] Comment: Please note: ??Patients with WBC >100,000 may have falsely elevated Potassium levels. ??For accurate Potassium quantification in these patients send serum separator tube (gold top) for subsequent determinations. ??Contact the Clinical Chemistry Laboratory if there are any questions. Chloride 93(L) 98 - 107 mmol/L [facility] Carbon Dioxide 24 22 - 31 mmol/L [facility] Anion Gap 13 5 - 15 mmol/L [facility] Calcium 8.6 8.5 - 10.5 mg/dL [facility] Est Glomerular Filtration Rate >60 >=60 [facility] Comment: The reported eGFR should be multiplied by 1.2 for patients. The MDRD is not an appropriate measure of renal function for patients with body mass extremes or in patients with acute kidney failure. [email or web address] Blood specimen (specimen) 10/01/2017 3:41 AM EDT 10/01/2017 3:53 AM EDT Narrative Resulting Agency Comment Spec In Lab Kemi Camp APRN CHEMISTRY ORDERAB LES Performing Organization Address City/[facility]/ZIP Co de Phone Number [facility] [place] [address] * (ABNORMAL) Basic Metabolic Panel (non-fasting) (09/30/2017 9:24 PM EDT) Glucose 106 65 - 199 mg/dL [facility] Comment:Diabetes: >=200 mg/d L plus symptoms Blood Urea Nitrogen 16 10 - 20 mg/dL [facility] Creatinine 0.80 0.80 - 1.50 mg/dL [facility] Sodium 131(L) 135 - 145 mmol/L [facility] Potassium 4.0 3.5 - 5.0 mmol/L [facility] Comment: Please note: ??Patients with WBC >100,000 may have falsely elevated Potassium levels. ??For accurate Potassium quantification in these patients send serum separator tube (gold top) for subsequent determinations. ??Contact the Clinical Chemistry Laboratory if there are any questions. Chloride 91(L) 98 - 107 mmol/L [facility] Carbon Dioxide 27 22 - 31 mmol/L [facility] Anion Gap 13 5 - 15 mmol/L [facility] Calcium 8.6 8.5 - 10.5 mg/dL [facility] Est Glomerular Filtration Rate >60 >=60 [facility] Comment: The reported eGFR should be multiplied by 1.2 for patients. The MDRD is not an appropriate measure of renal function for patients with body mass extremes or in patients with acute kidney failure. [email or web address] Blood specimen (specimen) 09/30/2017 9:24 PM EDT 09/30/2017 9:34 PM EDT Narrative Resulting Agency Comment Spec In Lab Kemi Camp APRN CHEMISTRY ORDERAB LES [facility] [place] [address] * (ABNORMAL) Basic Metabolic Panel (non-fasting) (09/30/2017 12:42 PM EDT) Glucose 74 65 - 199 mg/dL [facility] Comment:Diabetes: >=200 mg/d L plus symptoms Blood Urea Nitrogen 18 10 - 20 mg/dL [facility] Creatinine 0.82 0.80 - 1.50 mg/dL [facility] Sodium 133(L) 135 - 145 mmol/L [facility] Potassium 3.6 3.5 - 5.0 mmol/L [facility] Comment: Please note: ??Patients with WBC >100,000 may have falsely elevated Potassium levels. ??For accurate Potassium quantification in these patients send serum separator tube (gold top) for subsequent determinations. ??Contact the Clinical Chemistry Laboratory if there are any questions. Chloride 94(L) 98 - 107 mmol/L [facility] Carbon Dioxide 27 22 - 31 mmol/L [facility] Anion Gap 12 5 - 15 mmol/L [facility] Calcium 8.6 8.5 - 10.5 mg/dL [facility] Est Glomerular Filtration Rate >60 >=60 [facility] Comment: The reported eGFR should be multiplied by 1.2 for patients. The MDRD is not an appropriate measure of renal function for patients with body mass extremes or in patients with acute kidney failure. [email or web address] Blood specimen (specimen) 09/30/2017 12:42 PM EDT 09/30/2017 12:53 PM EDT Narrative Resulting Agency Comment Spec In Lab Reba Linton MD CHEMISTRY ORDERA BLES [facility] [place] [address] * (ABNORMAL) Basic Metabolic Panel (non-fasting) (09/30/2017 6:09 AM EDT) Glucose 85 65 - 199 mg/dL [facility] Comment:Diabetes: >=200 mg/d L plus symptoms Blood Urea Nitrogen 19 10 - 20 mg/dL [facility] Creatinine 0.78(L) 0.80 - 1.50 mg/dL [facility] Sodium 133(L) 135 - 145 mmol/L [facility] Potassium 3.9 3.5 - 5.0 mmol/L [facility] Comment: Please note: ??Patients with WBC >100,000 may have falsely elevated Potassium levels. ??For accurate Potassium quantification in these patients send serum separator tube (gold top) for subsequent determinations. ??Contact the Clinical Chemistry Laboratory if there are any questions. Chloride 94(L) 98 - 107 mmol/L [facility] Carbon Dioxide 27 22 - 31 mmol/L [facility] Anion Gap 12 5 - 15 mmol/L [facility] Calcium 8.8 8.5 - 10.5 mg/dL [facility] Est Glomerular Filtration Rate >60 >=60 [facility] Comment: The reported eGFR should be multiplied by 1.2 for patients. The MDRD is not an appropriate measure of renal function for patients with body mass extremes or in patients with acute kidney failure. [email or web address] Blood specimen (specimen) 09/30/2017 6:09 AM EDT 09/30/2017 6:13 AM EDT Narrative Resulting Agency Comment Spec In Lab Reba Linton MD CHEMISTRY ORDERA BLES [facility] [place] [address] * (ABNORMAL) Basic Metabolic Panel (non-fasting) (09/29/2017 6:36 PM EDT) Glucose 94 65 - 199 mg/dL [facility] Comment:Diabetes: >=200 mg/d L plus symptoms Blood Urea Nitrogen 22(H) 10 - 20 mg/dL [facility] Creatinine 0.73(L) 0.80 - 1.50 mg/dL [facility] Sodium 136 135 - 145 mmol/L [facility] Potassium 3.9 3.5 - 5.0 mmol/L [facility] Comment: Please note: ??Patients with WBC >100,000 may have falsely elevated Potassium levels. ??For accurate Potassium quantification in these patients send serum separator tube (gold top) for subsequent determinations. ??Contact the Clinical Chemistry Laboratory if there are any questions. Chloride 96(L) 98 - 107 mmol/L [facility] Carbon Dioxide 26 22 - 31 mmol/L [facility] Anion Gap 14 5 - 15 mmol/L [facility] Calcium 8.6 8.5 - 10.5 mg/dL [facility] Est Glomerular Filtration Rate >60 >=60 [facility] Comment: The reported eGFR should be multiplied by 1.2 for patients. The MDRD is not an appropriate measure of renal function for patients with body mass extremes or in patients with acute kidney failure. [email or web address] Blood specimen (specimen) 09/29/2017 6:36 PM EDT 09/29/2017 6:41 PM EDT Narrative Resulting Agency Comment Spec In Lab Kemi Camp APRN CHEMISTRY ORDERAB LES [facility] [place] [address] * (ABNORMAL) Basic Metabolic Panel (non-fasting) (09/29/2017 10:51 AM EDT) Glucose 82 65 - 199 mg/dL [facility] Comment:Diabetes: >=200 mg/d L plus symptoms Blood Urea Nitrogen 22(H) 10 - 20 mg/dL [facility] Creatinine 0.82 0.80 - 1.50 mg/dL [facility] Sodium 140 135 - 145 mmol/L [facility] Potassium 3.7 3.5 - 5.0 mmol/L [facility] Comment: Please note: ??Patients with WBC >100,000 may have falsely elevated Potassium levels. ??For accurate Potassium quantification in these patients send serum separator tube (gold top) for subsequent determinations. ??Contact the Clinical Chemistry Laboratory if there are any questions. Chloride 99 98 - 107 mmol/L [facility] Carbon Dioxide 28 22 - 31 mmol/L [facility] Anion Gap 13 5 - 15 mmol/L [facility] Calcium 8.8 8.5 - 10.5 mg/dL [facility] Est Glomerular Filtration Rate >60 >=60 [facility] Comment: The reported eGFR should be multiplied by 1.2 for patients. The MDRD is not an appropriate measure of renal function for patients with body mass extremes or in patients with acute kidney failure. [email or web address] Blood specimen (specimen) 09/29/2017 10:51 AM EDT 09/29/2017 11:08 AM EDT Narrative Resulting Agency Comment Spec In Lab Kemi Camp APRN CHEMISTRY ORDERAB LES [facility] [place] [address] * (ABNORMAL) Basic Metabolic Panel (non-fasting) (09/29/2017 2:17 AM EDT) Glucose 84 65 - 199 mg/dL [facility] Comment:Diabetes: >=200 mg/d L plus symptoms Blood Urea Nitrogen 23(H) 10 - 20 mg/dL [facility] Creatinine 0.98 0.80 - 1.50 mg/dL [facility] Sodium 140 135 - 145 mmol/L [facility] Potassium 3.5 3.5 - 5.0 mmol/L [facility] Comment: Please note: ??Patients with WBC >100,000 may have falsely elevated Potassium levels. ??For accurate Potassium quantification in these patients send serum separator tube (gold top) for subsequent determinations. ??Contact the Clinical Chemistry Laboratory if there are any questions. Chloride 99 98 - 107 mmol/L [facility] Carbon Dioxide 29 22 - 31 mmol/L [facility] Anion Gap 12 5 - 15 mmol/L [facility] Calcium 8.9 8.5 - 10.5 mg/dL [facility] Est Glomerular Filtration Rate >60 >=60 [facility] Comment: The reported eGFR should be multiplied by 1.2 for patients. The MDRD is not an appropriate measure of renal function for patients with body mass extremes or in patients with acute kidney failure. [email or web address] Blood specimen (specimen) 09/29/2017 2:17 AM EDT 09/29/2017 2:21 AM EDT Narrative Resulting Agency Comment Spec In Lab Kemi Camp APRN CHEMISTRY ORDERAB LES [facility] [place] [address] * (ABNORMAL) Basic Metabolic Panel (non-fasting) (09/28/2017 2:56 PM EDT) Glucose 92 65 - 199 mg/dL [facility] Comment:Diabetes: >=200 mg/d L plus symptoms Blood Urea Nitrogen 23(H) 10 - 20 mg/dL [facility] Creatinine 0.88 0.80 - 1.50 mg/dL [facility] Sodium 146(H) 135 - 145 mmol/L [facility] Potassium 4.0 3.5 - 5.0 mmol/L [facility] Comment: Please note: ??Patients with WBC >100,000 may have falsely elevated Potassium levels. ??For accurate Potassium quantification in these patients send serum separator tube (gold top) for subsequent determinations. ??Contact the Clinical Chemistry Laboratory if there are any questions. Chloride 103 98 - 107 mmol/L [facility] Carbon Dioxide 27 22 - 31 mmol/L [facility] Anion Gap 16(H) 5 - 15 mmol/L [facility] Calcium 9.3 8.5 - 10.5 mg/dL [facility] Est Glomerular Filtration Rate >60 >=60 [facility] Comment: The reported eGFR should be multiplied by 1.2 for patients. The MDRD is not an appropriate measure of renal function for patients with body mass extremes or in patients with acute kidney failure. [email or web address] Blood specimen (specimen) 09/28/2017 2:56 PM EDT 09/28/2017 3:08 PM EDT Narrative Resulting Agency Comment Spec In Lab Reba Linton MD CHEMISTRY ORDERA BLES [facility] [place] [phone] * (ABNORMAL) Basic Metabolic Panel (non-fasting) (09/28/2017 12:13 PM EDT) Glucose 78 65 - 199 mg/dL [facility] Comment:Diabetes: >=200 mg/d L plus symptoms Blood Urea Nitrogen 22(H) 10 - 20 mg/dL [facility] Creatinine 0.86 0.80 - 1.50 mg/dL [facility] Sodium 148(H) 135 - 145 mmol/L [facility] Potassium 3.9 3.5 - 5.0 mmol/L [facility] Comment: Please note: ??Patients with WBC >100,000 may have falsely elevated Potassium levels. ??For accurate Potassium quantification in these patients send serum separator tube (gold top) for subsequent determinations. ??Contact the Clinical Chemistry Laboratory if there are any questions. Chloride 106 98 - 107 mmol/L [facility] Carbon Dioxide 27 22 - 31 mmol/L [facility] Anion Gap 15 5 - 15 mmol/L [facility] Calcium 9.3 8.5 - 10.5 mg/dL [facility] Est Glomerular Filtration Rate >60 >=60 [facility] Comment: The reported eGFR should be multiplied by 1.2 for patients. The MDRD is not an appropriate measure of renal function for patients with body mass extremes or in patients with acute kidney failure. [email or web address] Blood specimen (specimen) 09/28/2017 12:13 PM EDT 09/28/2017 12:18 PM EDT Narrative Resulting Agency Comment Spec In Lab Reba Linton MD CHEMISTRY ORDERA BLES [facility] [place] [address] * (ABNORMAL) Basic Metabolic Panel (non-fasting) (09/28/2017 6:57 AM EDT) Glucose 86 65 - 199 mg/dL [facility] Comment:Diabetes: >=200 mg/d L plus symptoms Blood Urea Nitrogen 21(H) 10 - 20 mg/dL [facility] Creatinine 0.89 0.80 - 1.50 mg/dL [facility] Sodium 148(H) 135 - 145 mmol/L [facility] Potassium 4.0 3.5 - 5.0 mmol/L [facility] [facility] Comment: Please note: ??Patients with WBC >100,000 may have falsely elevated Potassium levels. ??For accurate Potassium quantification in these patients send serum separator tube (gold top) for subsequent determinations. ??Contact the Clinical Chemistry Laboratory if there are any questions. Chloride 107 98 - 107 mmol/L [facility] Carbon Dioxide 26 22 - 31 mmol/L [facility] Anion Gap 15 5 - 15 mmol/L [facility] Calcium 9.5 8.5 - 10.5 mg/dL [facility] Est Glomerular Filtration Rate >60 >=60 [facility] Comment: The reported eGFR should be multiplied by 1.2 for patients. The MDRD is not an appropriate measure of renal function for patients with body mass extremes or in patients with acute kidney failure. [email or web address] Blood specimen (specimen) 09/28/2017 6:57 AM EDT 09/28/2017 7:02 AM EDT Narrative Resulting Agency Comment Spec In Lab Reba Linton MD CHEMISTRY ORDERA BLES [facility] [place] [address] * (ABNORMAL) Basic Metabolic Panel (non-fasting) (09/27/2017 9:43 AM EDT) Glucose 108 65 - 199 mg/dL [facility] Comment:Diabetes: >=200 mg/d L plus symptoms Blood Urea Nitrogen 17 10 - 20 mg/dL [facility] Creatinine 1.00 0.80 - 1.50 mg/dL [facility] Sodium 147(H) 135 - 145 mmol/L [facility] Comment:result rechecked-MM Potassium 3.5 3.5 - 5.0 mmol/L [facility] Comment: Please note: ??Patients with WBC >100,000 may have falsely elevated Potassium levels. ??For accurate Potassium quantification in these patients send serum separator tube (gold top) for subsequent determinations. ??Contact the Clinical Chemistry Laboratory if there are any questions. Chloride 106 98 - 107 mmol/L [facility] Carbon Dioxide 22 22 - 31 mmol/L [facility] Anion Gap 19(H) 5 - 15 mmol/L [facility] Calcium 9.4 8.5 - 10.5 mg/dL [facility] Est Glomerular Filtration Rate >60 >=60 [facility] Comment: The reported eGFR should be multiplied by 1.2 for patients. The MDRD is not an appropriate measure of renal function for patients with body mass extremes or in patients with acute kidney failure. [email or web address] Blood specimen (specimen) 09/27/2017 9:43 AM EDT 09/27/2017 9:50 AM EDT Narrative Resulting Agency Comment Spec In Lab Kya Enriquez MD CHEMISTRY ORDERABL ES [facility] [place] [address] * (ABNORMAL) Basic Metabolic Panel (non-fasting) (09/25/2017 12:22 PM EDT) Glucose 81 65 - 199 mg/dL [facility] Comment:Diabetes: >=200 mg/d L plus symptoms Blood Urea Nitrogen 16 10 - 20 mg/dL [facility] Creatinine 0.68(L) 0.80 - 1.50 mg/dL [facility] Sodium 137 135 - 145 mmol/L [facility] Potassium 4.0 3.5 - 5.0 mmol/L [facility] Comment: Please note: ??Patients with WBC >100,000 may have falsely elevated Potassium levels. ??For accurate Potassium quantification in these patients send serum separator tube (gold top) for subsequent determinations. ??Contact the Clinical Chemistry Laboratory if there are any questions. Chloride 98 98 - 107 mmol/L [facility] Carbon Dioxide 24 22 - 31 mmol/L [facility] Anion Gap 15 5 - 15 mmol/L [facility] Calcium 9.1 8.5 - 10.5 mg/dL [facility] Est Glomerular Filtration Rate >60 >=60 [facility] Comment: The reported eGFR should be multiplied by 1.2 for patients. The MDRD is not an appropriate measure of renal function for patients with body mass extremes or in patients with acute kidney failure. [email or web address] Blood specimen (specimen) 09/25/2017 12:22 PM EDT 09/25/2017 12:30 PM EDT Narrative Resulting Agency Comment Spec In Lab Kya Enriquez MD CHEMISTRY ORDERABL ES [facility] [place] [address] * (ABNORMAL) Basic Metabolic Panel (non-fasting) (09/24/2017 11:40 AM EDT) Glucose 96 65 - 199 mg/dL [facility] Comment:Diabetes: >=200 mg/d L plus symptoms Blood Urea Nitrogen 13 10 - 20 mg/dL [facility] Creatinine 0.78(L) 0.80 - 1.50 mg/dL [facility] Sodium 137 135 - 145 mmol/L [facility] Potassium 4.0 3.5 - 5.0 mmol/L [facility] Comment: Please note: ??Patients with WBC >100,000 may have falsely elevated Potassium levels. ??For accurate Potassium quantification in these patients send serum separator tube (gold top) for subsequent determinations. ??Contact the Clinical Chemistry Laboratory if there are any questions. Chloride 100 98 - 107 mmol/L [facility] Carbon Dioxide 26 22 - 31 mmol/L [facility] Anion Gap 11 5 - 15 mmol/L [facility] Calcium 8.9 8.5 - 10.5 mg/dL [facility] Est Glomerular Filtration Rate >60 >=60 [facility] Comment: The reported eGFR should be multiplied by 1.2 for patients. The MDRD is not an appropriate measure of renal function for patients with body mass extremes or in patients with acute kidney failure. [email or web address] Blood specimen (specimen) 09/24/2017 11:40 AM EDT 09/24/2017 11:47 AM EDT Narrative Resulting Agency Comment Spec In Lab Kya Enriquez MD CHEMISTRY ORDERABL ES [facility] [place] [address] * XR Pelvis (Generic) (09/23/2017 5:26 PM EDT) Anatomical Region Laterality Modality Pelvis N/A Digital Radiogra phy Impressions 09/23/2017 6:06 PM EDT Prior fixation of the left pelvic fracture. No change in appearance. Narrative 09/23/2017 6:06 PM EDT EXAMINATION: XR PELVIS (GENERIC) CLINICAL HISTORY: s/p ORIF of the pelvis, change in the character of pain left hip TECHNIQUE: One view pelvis COMPARISON: None FINDINGS: There has been plate and screw fixation of a comminuted left pelvic fracture. There is no change in alignment at the fracture site. The hip joints appear intact. Previously present skin carisa have been removed. Procedure Note Jeff Elias MD - 09/23/2017 EXAMINATION: XR PELVIS (GENERIC) CLINICAL HISTORY: s/p ORIF of the pelvis, change in the character of painleft hip TECHNIQUE: One view pelvis COMPARISON: None FINDINGS: There has been plate and screw fixation of a comminuted left pelvicfracture. There is no change in alignment at the fracture site. The hip jointsappear intact. Previously present skin carisa have been removed. IMPRESSION Prior fixation of the left pelvic fracture. No change in appearance. Kya Enriquez MD IMG DX ORDERABLES * Basic Metabolic Panel (non-fasting) (09/22/2017 3:32 AM EDT) Glucose 87 65 - 199 mg/dL [facility] Comment:Diabetes: >=200 mg/d L plus symptoms Blood Urea Nitrogen 20 10 - 20 mg/dL [facility] Creatinine 0.86 0.80 - 1.50 mg/dL [facility] Sodium 139 135 - 145 mmol/L [facility] Potassium 4.1 3.5 - 5.0 mmol/L [facility] Comment: Please note: ??Patients with WBC >100,000 may have falsely elevated Potassium levels. ??For accurate Potassium quantification in these patients send serum separator tube (gold top) for subsequent determinations. ??Contact the Clinical Chemistry Laboratory if there are any questions. Chloride 100 98 - 107 mmol/L [facility] Carbon Dioxide 26 22 - 31 mmol/L [facility] Anion Gap 13 5 - 15 mmol/L [facility] Calcium 8.9 8.5 - 10.5 mg/dL [facility] Est Glomerular Filtration Rate >60 >=60 [facility] Comment: The reported eGFR should be multiplied by 1.2 for patients. The MDRD is not an appropriate measure of renal function for patients with body mass extremes or in patients with acute kidney failure. [email or web address] Blood specimen (specimen) 09/22/2017 3:32 AM EDT 09/22/2017 4:16 AM EDT Narrative Resulting Agency Comment Spec In Lab Kya Enriquez MD CHEMISTRY ORDERABL ES [facility] [place] [address] * Basic Metabolic Panel (non-fasting) (09/21/2017 10:25 AM EDT) Glucose 92 65 - 199 mg/dL [facility] Comment:Diabetes: >=200 mg/d L plus symptoms Blood Urea Nitrogen 19 10 - 20 mg/dL [facility] Creatinine 0.87 0.80 - 1.50 mg/dL [facility] Sodium 141 135 - 145 mmol/L [facility] Potassium 3.8 3.5 - 5.0 mmol/L [facility] Comment: Please note: ??Patients with WBC >100,000 may have falsely elevated Potassium levels. ??For accurate Potassium quantification in these patients send serum separator tube (gold top) for subsequent determinations. ??Contact the Clinical Chemistry Laboratory if there are any questions. Chloride 102 98 - 107 mmol/L [facility] Carbon Dioxide 28 22 - 31 mmol/L [facility] Anion Gap 11 5 - 15 mmol/L [facility] Calcium 8.8 8.5 - 10.5 mg/dL [facility] Est Glomerular Filtration Rate >60 >=60 [facility] Comment: The reported eGFR should be multiplied by 1.2 for patients. The MDRD is not an appropriate measure of renal function for patients with body mass extremes or in patients with acute kidney failure. [email or web address] Blood specimen (specimen) 09/21/2017 10:25 AM EDT 09/21/2017 10:31 AM EDT Narrative Resulting Agency Comment Spec In Lab Kya Enriquez MD CHEMISTRY ORDERABL ES [facility] [place] [address] * (ABNORMAL) Basic Metabolic Panel (non-fasting) (09/20/2017 5:51 AM EDT) Glucose 93 65 - 199 mg/dL [facility] Comment:Diabetes: >=200 mg/d L plus symptoms Blood Urea Nitrogen 22(H) 10 - 20 mg/dL [facility] Creatinine 0.90 0.80 - 1.50 mg/dL [facility] Sodium 144 135 - 145 mmol/L [facility] Potassium 3.6 3.5 - 5.0 mmol/L [facility] Comment: Please note: ??Patients with WBC >100,000 may have falsely elevated Potassium levels. ??For accurate Potassium quantification in these patients send serum separator tube (gold top) for subsequent determinations. ??Contact the Clinical Chemistry Laboratory if there are any questions. Chloride 104 98 - 107 mmol/L [facility] Carbon Dioxide 26 22 - 31 mmol/L [facility] Anion Gap 14 5 - 15 mmol/L [facility] Calcium 8.9 8.5 - 10.5 mg/dL [facility] Est Glomerular Filtration Rate >60 >=60 [facility] Comment: The reported eGFR should be multiplied by 1.2 for patients. The MDRD is not an appropriate measure of renal function for patients with body mass extremes or in patients with acute kidney failure. [email or web address] Blood specimen (specimen) 09/20/2017 5:51 AM EDT 09/20/2017 6:57 AM EDT Narrative Resulting Agency Comment Spec In Lab Reba Linton MD CHEMISTRY ORDERA [facility] Organization Address City/State/ZIP Co de Phone Number [facility] [place] [address] * XR Pelvis Judet or In Out 3 views (09/19/2017 5:07 PM EDT) Anatomical Region Laterality Modality Pelvis N/A Digital Radiogra phy Impressions 09/19/2017 5:17 PM EDT Limited examination: Plate and screw fixation left acetabulum. No obvious change. Narrative 09/19/2017 5:17 PM EDT EXAMINATION: XR PELVIS JUDET OR IN OUT 3 VIEWS CLINICAL HISTORY: AP pelvis with judet views, s/p ORIF left acetabular fracture TECHNIQUE: The study is limited to a single poorly centered oblique view due to the patient's inability to cooperate with the examination. COMPARISON: 09/04/2017 FINDINGS: As seen on the patient's earlier x-rays a plate and screw fixation is present that a left acetabular fracture. No apparent change in alignment or fixation is seen on this limited examination. Procedure Note Galen Cervantes MD - 09/19/2017 EXAMINATION: XR PELVIS JUDET OR IN OUT 3 VIEWS CLINICAL HISTORY: AP pelvis with judet views, s/p ORIF left acetabularfracture TECHNIQUE: The study is limited to a single poorly centered oblique view due to the patient's inability to cooperate with the examination. COMPARISON: 09/04/2017 FINDINGS: As seen on the patient's earlier x-rays a plate and screw fixation ispresent that a left acetabular fracture. No apparent change in alignment orfixation is seen on this limited examination. IMPRESSION Limited examination: Plate and screw fixation left acetabulum. No obvious change. Reba Linton MD IMG DX ORDERABLE S * Scan, Peripheral Blood (09/19/2017 3:21 AM EDT) Plat estimate Increased [facility] RBC Morphology Abnormal [facility] Hypochromia Slight [facility] Ovalocytes 1-5 /HPF [facility] Tear Cell 1-5 /HPF [facility] Blood specimen (specimen) 09/19/2017 3:21 AM EDT 09/19/2017 4:23 AM EDT Narrative Resulting Agency Comment Spec In Lab Juliet Medeiros APRN HEMATOLOGY ORDERABLE S [facility] [place] [address] * (ABNORMAL) Differential, Automated (09/19/2017 3:21 AM EDT) Neutrophil % 50.0 % [facility] Neutrophil Absolute 3.69 1.70 - 6.10 x10(3)/mc L [facility] Lymph % 28.8 % [facility] Lymphocytes Abs 2.1 0.9 - 3.2 x10(3)/mc L [facility] Monocyte % 11.0 % [facility] Monocyte Abs 0.8 0.3 - 0.9 x10(3)/ L [facility] Eos % 7.5 % [facility] Eosinophils Abs 0.6(H) 0.0 - 0.4 x10(3)/ L [facility] Basophil % 0.9 % [facility] Baso Absolute 0.1 0.0 - 0.1 x10(3)/[facility] Immature Gran % 1.80 % [facility] Comment: Immature granulocytes(IG's)percentage and absolute count will include metamyelocytes, myelocytes, and promyelocytes. Blood smears from CBCs yielding IG's will be scanned manually for concordance. If this scan disagrees with the automated IG or if promyelocytes are noted, a manual differential will be performed. Immature Gran Absolute 0.13(H) 0.00 - 0.04 x10(3)/ L [facility] Blood specimen (specimen) 09/19/2017 3:21 AM EDT 09/19/2017 4:23 AM EDT Narrative Resulting Agency Comment Spec In Lab Juliet Medeiros APRN HEMATOLOGY ORDERABLE S Performing Organization Address City/State/[facility] Co de Phone Number [facility] [place] [address] * (ABNORMAL) Hemogram (09/19/2017 3:21 AM EDT) White Blood Cell 7.4 4.0 - 9.5 x10(3)/ L [facility] Red Blood Cell 3.52(L) 4.58 - 5.54 x10(6)/ L [facility] Hemoglobin 9.1(L) 13.7 - 16.5 gm/dL [facility] Hematocrit 31.4(L) 40.5 - 48.5 % [facility] Mean Cell Volume 89.2 82.9 - 93.1 fL [facility] Mean Cell Hemoglobin 25.9(L) 27.5 - 32.1 pg [facility] Mean Cell Hemoglobin Concentration 29.0(L) 32.0 - 35.7 gm/dL [facility] Platelet 648(H) 145 - 357 x10(3)/mc L [facility] RDW Standard Deviation 53.9(H) 36.0 - 45.0 fL [facility] RDW coefficient of variation 17.3(H) 11.4 - 13.8 % [facility] Mean Platelet Volume 8.9 7.6 - 12.9 fL [facility] NRBC% auto 0.5 % [facility] NRBC Absolute 0.040(H) 0.000 - 0.000 x10(3)/mc L [facility] Blood specimen (specimen) 09/19/2017 3:21 AM EDT 09/19/2017 4:23 AM EDT Narrative Resulting Agency Comment Spec In Lab Juliet Medeiros APRN HEMATOLOGY ORDERABLE S [facility] [place] [address] * (ABNORMAL) Basic Metabolic Panel (non-fasting) (09/19/2017 3:21 AM EDT) Glucose 91 65 - 199 mg/dL [facility] Comment:Diabetes: >=200 mg/d L plus symptoms Blood Urea Nitrogen 16 10 - 20 mg/dL [facility] Creatinine 1.02 0.80 - 1.50 mg/dL [facility] Sodium 149(H) 135 - 145 mmol/L [facility] Potassium 4.0 3.5 - 5.0 mmol/L [facility] Comment: Please note: ??Patients with WBC >100,000 may have falsely elevated Potassium levels. ??For accurate Potassium quantification in these patients send serum separator tube (gold top) for subsequent determinations. ??Contact the Clinical Chemistry Laboratory if there are any questions. Chloride 108(H) 98 - 107 mmol/L [facility] Carbon Dioxide 26 22 - 31 mmol/L [facility] Anion Gap 15 5 - 15 mmol/L [facility] Calcium 9.1 8.5 - 10.5 mg/dL [facility] Est Glomerular Filtration Rate >60 >=60 [facility] Comment: The reported eGFR should be multiplied by 1.2 for patients. The MDRD is not an appropriate measure of renal function for patients with body mass extremes or in patients with acute kidney failure. [email or web address] Blood specimen (specimen) 09/19/2017 3:21 AM EDT 09/19/2017 4:23 AM EDT Narrative Resulting Agency Comment Spec In Lab Juliet Medeiros APRN CHEMISTRY ORDERABLES [facility] [place] [address] * Sodium (09/18/2017 5:46 AM EDT) Sodium 144 135 - 145 mmol/L [facility] Comment:Rechecked-KS Blood specimen (specimen) 09/18/2017 5:46 AM EDT 09/18/2017 5:59 AM EDT Narrative Resulting Agency Comment Spec In Lab Reba Linton MD CHEMISTRY ORDERA BLES [facility] [place] [address] * (ABNORMAL) Hemogram (09/18/2017 5:46 AM EDT) White Blood Cell 6.6 4.0 - 9.5 x10(3)/mc L [facility] Red Blood Cell 3.05(L) 4.58 - 5.54 x10(6)/mc L [facility] Hemoglobin 8.2(L) 13.7 - 16.5 gm/dL [facility] Hematocrit 26.2(L) 40.5 - 48.5 % [facility] Mean Cell Volume 85.9 82.9 - 93.1 fL [facility] Mean Cell Hemoglobin 26.9(L) 27.5 - 32.1 pg [facility] Mean Cell Hemoglobin Concentration 31.3(L) 32.0 - 35.7 gm/dL [facility] Platelet 580(H) 145 - 357 x10(3)/mc L [facility] RDW Standard Deviation 50.4(H) 36.0 - 45.0 [facility] RDW coefficient of variation 16.7(H) 11.4 - 13.8 % [facility] Mean Platelet Volume 8.8 7.6 - 12.9 [facility] NRBC% auto 0.5 % [facility] NRBC Absolute 0.030(H) 0.000 - 0.000 x10(3)/mc L [facility] Blood specimen (specimen) 09/18/2017 5:46 AM EDT 09/18/2017 5:59 AM EDT Narrative Resulting Agency Comment Spec In Lab Reba Linton MD HEMATOLOGY ORDER LYNDSEY [facility] [place] [address] * Sodium (09/17/2017 12:49 PM EDT) Sodium 136 135 - 145 mmol/L [facility] Blood specimen (specimen) 09/17/2017 12:49 PM EDT 09/17/2017 12:54 PM EDT Narrative Resulting Agency Comment Spec In Lab Reba Linton MD CHEMISTRY ORDERA BLES [facility] [place] [address] * (ABNORMAL) Hemogram (09/17/2017 6:28 AM EDT) White Blood Cell 6.8 4.0 - 9.5 x10(3)/mc L [facility] Red Blood Cell 3.07(L) 4.58 - 5.54 x10(6)/mc L [facility] Hemoglobin 8.1(L) 13.7 - 16.5 gm/dL [facility] Hematocrit 26.0(L) 40.5 - 48.5 % [facility] Mean Cell Volume 84.7 82.9 - 93.1 fL [facility] Mean Cell Hemoglobin 26.4(L) 27.5 - 32.1 pg [facility] Mean Cell Hemoglobin Concentration 31.2(L) 32.0 - 35.7 gm/dL [facility] Platelet 497(H) 145 - 357 x10(3)/ L [facility] RDW Standard Deviation 46.9(H) 36.0 - 45.0 [facility] RDW coefficient of variation 15.7(H) 11.4 - 13.8 % [facility] Mean Platelet Volume 8.8 7.6 - 12.9 [facility] NRBC% auto 0.3 % [facility] NRBC Absolute 0.020(H) 0.000 - 0.000 x10(3)/ L [facility] Blood specimen (specimen) 09/17/2017 6:28 AM EDT 09/17/2017 6:43 AM EDT Narrative Resulting Agency Comment Spec In Lab Reba Linton MD HEMATOLOGY ORDER LYNDSEY [facility] [place] [address] * ABORH Recheck Status (09/16/2017 9:27 AM EDT) ABORH Type Recheck Completed [facility] Blood specimen (specimen) 09/16/2017 9:27 AM EDT 09/16/2017 9:32 AM EDT Narrative Resulting Agency Comment Spec In Lab Delgado Jeffrey MD BLOOD BANK LAB ORDEmerald CHENGREBECA [facility] [place] [address] * Antibody screen (09/16/2017 9:27 AM EDT) Pathologist [facility] Ab Screen Interp Negative [facility] Expires at [id number] on: 09/19/2017 [facility] Blood specimen (specimen) 09/16/2017 9:27 AM EDT 09/16/2017 9:32 AM EDT Narrative Resulting Agency Comment Spec In Lab Delgado Jeffrey MD BLOOD BANK LAB ELEAZAREmerald RIDDHI Performing Organization Address City/[facility]/ZIP Co de Phone Number [facility] [place] [address] * ABO/Rh Typing (09/16/2017 9:27 AM EDT) ABORH Type O Pos [facility] Blood specimen (specimen) 09/16/2017 9:27 AM EDT 09/16/2017 9:32 AM EDT Narrative Resulting Agency Comment Spec In Lab Delgado Jeffrey MD BLOOD BANK LAB ORDEmerald CHENGREBECA [facility] [place] [address] * Prepare RBC (09/16/2017 8:35 AM EDT) Dispensed? Yes [facility] Blood specimen (specimen) 09/16/2017 8:35 AM EDT 09/16/2017 8:34 AM EDT Narrative Resulting Agency Comment Spec In Lab Reba Linton MD BLOOD BANK PRODU CT ORDERABLES [facility] [place] [address] * Sodium (09/16/2017 5:07 AM EDT) Sodium 141 135 - 145 mmol/L [facility] Blood specimen (specimen) 09/16/2017 5:07 AM EDT 09/16/2017 5:14 AM EDT Narrative Resulting Agency Comment Spec In Lab Reba Linton MD CHEMISTRY ORDERA BLES Performing Organization Address [facility] Co de Phone Number [facility] [place] [address] * (ABNORMAL) Differential, Automated (09/16/2017 5:07 AM EDT) Pathologist [facility] Neutrophil % 54.3 % [facility] Neutrophil Absolute 4.04 1.70 - 6.10 x10(3)/mc L [facility] Lymph % 24.3 % [facility] Lymphocytes Abs 1.8 0.9 - 3.2 x10(3)/mc L [facility] Monocyte % 10.0 % [facility] Monocyte Abs 0.7 0.3 - 0.9 x10(3)/mc L [facility] Eos % 8.8 % [facility] Eosinophils Abs 0.6(H) 0.0 - 0.4 x10(3)/mc L [facility] Basophil % 0.4 % [facility] Baso Absolute 0.0 0.0 - 0.1 x10(3)/mc L [facility] Immature Gran % 2.20 % [facility] Comment: Immature granulocytes(IG's)percentage and absolute count will include metamyelocytes, myelocytes, and promyelocytes. Blood smears from CBCs yielding IG's will be scanned manually for concordance. If this scan disagrees with the automated IG or if promyelocytes are noted, a manual differential will be performed. Immature Gran Absolute 0.16(H) 0.00 - 0.04 x10(3)/mc L [facility] Blood specimen (specimen) 09/16/2017 5:07 AM EDT 09/16/2017 5:14 AM EDT Narrative Resulting Agency Comment Spec In Lab Delgado Jeffrey MD HEMATOLOGY ORDERABL ES [facility] [place] [address] * (ABNORMAL) Hemogram (09/16/2017 5:07 AM EDT) White Blood Cell 7.4 4.0 - 9.5 x10(3)/ L [facility] Red Blood Cell 2.58(L) 4.58 - 5.54 x10(6)/ L [facility] Hemoglobin 6.8(L) 13.7 - 16.5 gm/dL [facility] Hematocrit 21.8(L) 40.5 - 48.5 % [facility] Mean Cell Volume 84.5 82.9 - 93.1 fL [facility] Mean Cell Hemoglobin 26.4(L) 27.5 - 32.1 pg [facility] Mean Cell Hemoglobin Concentration 31.2(L) 32.0 - 35.7 gm/dL [facility] Platelet 366(H) 145 - 357 x10(3)/mc L [facility] RDW Standard Deviation 47.4(H) 36.0 - 45.0 fL [facility] RDW coefficient of variation 15.7(H) 11.4 - 13.8 % [facility] Mean Platelet Volume 8.7 7.6 - 12.9 fL [facility] NRBC% auto 0.3 % [facility] NRBC Absolute 0.020(H) 0.000 - 0.000 x10(3)/mc L [facility] Blood specimen (specimen) 09/16/2017 5:07 AM EDT 09/16/2017 5:14 AM EDT Narrative Resulting Agency Comment Spec In Lab Delgado Jeffrey MD HEMATOLOGY ORDERABL ES Performing Organization Address [facility] Co de Phone Number [facility] [place] [address] * SCAN DOC: LAB (09/16/2017 12:00 AM EDT) Narrative 09/16/2017 12:00 AM EDT Ordered by an unspecified provider. Scanning Provider MEDIA MGR SCAN EXT O RDR/RSLT * Sodium (09/15/2017 1:48 PM EDT) Pathologist [facility] Sodium 137 135 - 145 mmol/L [facility] Blood specimen (specimen) 09/15/2017 1:48 PM EDT 09/15/2017 1:57 PM EDT Narrative Resulting Agency Comment Spec In Lab Reba Linton MD CHEMISTRY ORDERA BLES Performing Organization Address [facility] Co de Phone Number [facility] [place] [address] * (ABNORMAL) Differential, Automated (09/15/2017 1:48 PM EDT) Neutrophil % 65.7 % [facility] Neutrophil Absolute 5.35 1.70 - 6.10 x10(3)/mc L [facility] Lymph % 14.9 % [facility] Lymphocytes Abs 1.2 0.9 - 3.2 x10(3)/mc L [facility] Monocyte % 7.0 % [facility] Monocyte Abs 0.6 0.3 - 0.9 x10(3)/mc L [facility] Eos % 8.0 % [facility] Eosinophils Abs 0.6(H) 0.0 - 0.4 x10(3)/[facility] Basophil % 0.5 % [facility] Baso Absolute 0.0 0.0 - 0.1 x10(3)/[facility] Immature Gran % 3.90 % [facility] Comment: Immature granulocytes(IG's)percentage and absolute count will include metamyelocytes, myelocytes, and promyelocytes. Blood smears from CBCs yielding IG's will be scanned manually for concordance. If this scan disagrees with the automated IG or if promyelocytes are noted, a manual differential will be performed. Immature Gran Absolute 0.32(H) 0.00 - 0.04 x10(3)/[facility] Blood specimen (specimen) 09/15/2017 1:48 PM EDT 09/15/2017 1:57 PM EDT Narrative Resulting Agency Comment Spec In Lab Delgado Jeffrey MD HEMATOLOGY ORDERABL ES [facility] [place] [address] * (ABNORMAL) Hemogram (09/15/2017 1:48 PM EDT) White Blood Cell 8.1 4.0 - 9.5 x10(3)/[facility] Red Blood Cell 2.82(L) 4.58 - 5.54 x10(6)/[facility] Hemoglobin 7.4(L) 13.7 - 16.5 gm/dL [facility] Hematocrit 24.2(L) 40.5 - 48.5 % [facility] Mean Cell Volume 85.8 82.9 - 93.1 fL [facility] Mean Cell Hemoglobin 26.2(L) 27.5 - 32.1 pg [facility] Mean Cell Hemoglobin Concentration 30.6(L) 32.0 - 35.7 gm/dL [facility] Platelet 399(H) 145 - 357 x10(3)/mc L [facility] RDW Standard Deviation 48.6(H) 36.0 - 45.0 fL [facility] RDW coefficient of variation 15.9(H) 11.4 - 13.8 % [facility] Mean Platelet Volume 8.6 7.6 - 12.9 fL [facility] NRBC% auto 0.2 % [facility] NRBC Absolute 0.020(H) 0.000 - 0.000 x10(3)/mc L [facility] Blood specimen (specimen) 09/15/2017 1:48 PM EDT 09/15/2017 1:57 PM EDT Narrative Resulting Agency Comment Spec In Lab Delgado Jeffrey MD HEMATOLOGY ORDERABL ES Performing Organization Address City/[facility]/ZIP Co de Phone Number [facility] [place] [address] * Sodium (09/15/2017 6:07 AM EDT) Sodium 141 135 - 145 mmol/L [facility] Blood specimen (specimen) 09/15/2017 6:07 AM EDT 09/15/2017 6:20 AM EDT Narrative Resulting Agency Comment Spec In Lab Reba Linton MD CHEMISTRY ORDERA BLES Performing Organization Address City/[facility]/ZIP Co de Phone Number [facility] [place] [address] * Urinalysis with reflex Culture (09/14/2017 10:32 PM EDT) Glucose, Urine Dipstick Negative Negative mg/dL [facility] Protein, Urine Dipstick Negative Negative mg/dL [facility] Bilirubin, Urine Dipstick Negative Negative mg/dL [facility] Comment: Clinical correlation required for positive Urine Bilirubin results as false positive may occur with some drugs and drug related products. If a false positive is suspected a serum total bilirubin should be considered if clinically indicated. Urobilinogen, Urine Dipstick Normal Normal mg/dL [facility] pH, Urn (dipstick) 5.0 5.0 - 8.0 [facility] Blood, Urine Dipstick Negative Negative mg/dL [facility] Ketone, Urine Dipstick Negative Negative mg/dL [facility] Nitrite, Urine Dipstick Negative Negative [facility] Leukocytes, Urine Dipstick Negative Negative [facility] Appearance, Urine Dipstick Clear Clear [facility] Specific [place] Urine Automated 1.019 1.002 - 1.030 [facility] Color, Urine Dipstick Yellow Yellow [facility] Reflex to Culture No [facility] Urine specimen obtained via straight catheter (specimen) 09/14/2017 10:32 PM EDT 09/14/2017 11:25 PM EDT Narrative Resulting Agency Comment Spec In Lab Shannan Davalos APRN URINE ORDERABLES Performing Organization Address [facility] Co de Phone Number [facility] [place] [address] * Sodium (09/14/2017 10:16 PM EDT) Sodium 142 135 - 145 mmol/L [facility] Blood specimen (specimen) 09/14/2017 10:16 PM EDT 09/14/2017 10:22 PM EDT Narrative Resulting Agency Comment Spec In Lab Reba Linton MD CHEMISTRY ORDERA BLES Performing Organization Address [facility]/ZIP Co de Phone Number [facility] [place] [address] * XR Chest PA or AP 1 view (09/14/2017 9:01 PM EDT) Anatomical Region Laterality Modality Chest N/A Digital Radiogra phy Impressions 09/14/2017 9:08 PM EDT No acute cardiopulmonary process is identified. Narrative 09/14/2017 9:08 PM EDT EXAMINATION: XR CHEST PA OR AP 1 VIEW CLINICAL HISTORY: Fever TECHNIQUE: AP chest. COMPARISON: September 03, 2017. FINDINGS: Low lung volumes are again noted.. No focal consolidation or pleural effusion is seen. The cardiac silhouette is normal in size. Procedure Note Don Garcia MD - 09/14/2017 EXAMINATION: XR CHEST PA OR AP 1 VIEW CLINICAL HISTORY: Fever TECHNIQUE: AP chest. COMPARISON: September 03, 2017. FINDINGS: Low lung volumes are again noted.. No focal consolidation or pleuraleffusion is seen. The cardiac silhouette is normal in size. IMPRESSION No acute cardiopulmonary process is identified. Shannan Davalos APRN IMG DX ORDERABLES * Blood culture (09/14/2017 8:51 PM EDT) Blood Culture No growth at 5 days. [facility] Blood specimen (specimen) 09/14/2017 8:51 PM EDT 09/14/2017 9:30 PM EDT Comment:R AC.BR Narrative Resulting Agency Comment Spec In Lab Shannan Davalos APRN MICROBIOLOGY - BLOOD ORDERABLES [facility] [place] [address] * Blood culture (09/14/2017 8:51 PM EDT) Blood Culture No growth at 5 days. [facility] Blood specimen (specimen) 09/14/2017 8:51 PM EDT 09/14/2017 9:30 PM EDT Comment:L AC Narrative Resulting Agency Comment Spec In Lab Shannan Davalos APRN MICROBIOLOGY - BLOOD ORDERABLES [facility] [place] [address] * T4, free (09/14/2017 2:09 PM EDT) Free T4 1.01 0.93 - 1.70 ng/dL [facility] Blood specimen (specimen) Venous Draw / Unknown 09/14/2017 2:09 PM EDT 09/14/2017 4:05 PM EDT Narrative Resulting Agency Comment Spec In Lab Yadi Mccauley MD CHEMISTRY ORDERAB LES Performing Organization Address [facility]/ZIP Co de Phone Number [facility] [place] [address] * Sodium (09/14/2017 2:09 PM EDT) Sodium 145 135 - 145 mmol/L [facility] Blood specimen (specimen) 09/14/2017 2:09 PM EDT 09/14/2017 2:14 PM EDT Narrative Resulting Agency Comment Spec In Lab Reba Linton MD CHEMISTRY ORDERA BLES Performing Organization Address [facility]/ZIP Co de Phone Number [facility] [place] [address] * Magnesium (09/14/2017 2:09 PM EDT) Magnesium 0.85 0.69 - 1.07 mmol/L [facility] Blood specimen (specimen) 09/14/2017 2:09 PM EDT 09/14/2017 2:14 PM EDT Narrative Resulting Agency Comment Spec In Lab Reba Linton MD CHEMISTRY ORDERA BLES [facility] [place] [address] * Basic Metabolic Panel (non-fasting) (09/14/2017 2:09 PM EDT) Glucose 73 65 - 199 mg/dL [facility] Comment:Diabetes: >=200 mg/d L plus symptoms Blood Urea Nitrogen 16 10 - 20 mg/dL [facility] Creatinine 0.92 0.80 - 1.50 mg/dL [facility] Sodium 145 135 - 145 mmol/L [facility] Potassium 3.6 3.5 - 5.0 mmol/L [facility] Comment: Please note: ??Patients with WBC >100,000 may have falsely elevated Potassium levels. ??For accurate Potassium quantification in these patients send serum separator tube (gold top) for subsequent determinations. ??Contact the Clinical Chemistry Laboratory if there are any questions. Chloride 104 98 - 107 mmol/L [facility] Carbon Dioxide 27 22 - 31 mmol/L [facility] Anion Gap 14 5 - 15 mmol/L [facility] Calcium 8.6 8.5 - 10.5 mg/dL [facility] Est Glomerular Filtration Rate >60 >=60 [facility] Comment: The reported eGFR should be multiplied by 1.2 for patients. The MDRD is not an appropriate measure of renal function for patients with body mass extremes or in patients with acute kidney failure. http://Vidient.Fashinating/DHnkdep http://Wurldtech/DHMCnkf Blood specimen (specimen) 09/14/2017 2:09 PM EDT 09/14/2017 2:14 PM EDT Narrative Resulting Agency Comment Spec In Lab Reba Linton MD CHEMISTRY ORDERA BLES [facility] [place] [address] * Sodium (09/14/2017 9:37 AM EDT) Sodium 142 135 - 145 mmol/L [facility] Blood specimen (specimen) 09/14/2017 9:37 AM EDT 09/14/2017 9:40 AM EDT Narrative Resulting Agency Comment Spec In Lab Reba Linton MD CHEMISTRY ORDERA BLES Performing Organization Address [facility] Co de Phone Number [facility] [place] [address] * Sodium (09/14/2017 5:07 AM EDT) Sodium 144 135 - 145 mmol/L [facility] Blood specimen (specimen) 09/14/2017 5:07 AM EDT 09/14/2017 5:30 AM EDT Narrative Resulting Agency Comment Spec In Lab Reba Linton MD CHEMISTRY ORDERA BLES Performing Organization Address [facility] Co de Phone Number [facility] [place] [address] * Sodium (09/13/2017 9:42 PM EST) Sodium 138 135 - 145 mmol/L [facility] Blood specimen (specimen) 09/13/2017 9:42 PM EST 09/13/2017 9:50 PM EST Narrative Resulting Agency Comment Spec In Lab Reba Linton MD CHEMISTRY ORDERA BLES Performing Organization Address [facility] Co de Phone Number [facility] [place] [address] * Sodium (09/13/2017 2:39 PM EST) Sodium 140 135 - 145 mmol/L [facility] Blood specimen (specimen) 09/13/2017 2:39 PM EST 09/13/2017 2:44 PM EST Narrative Resulting Agency Comment Spec In Lab Reba Linton MD CHEMISTRY ORDERA BLES Performing Organization Address City/[facility]/ZIP Co de Phone Number [facility] [place] [address] * Osmolality (09/13/2017 9:09 AM EST) Osmolality 291 275 - 295 mOsm/kg [facility] Blood specimen (specimen) 09/13/2017 9:09 AM EST 09/13/2017 9:13 AM EST Narrative Resulting Agency Comment Spec In Lab Ren Sanchez III, MD CHEMISTRY ORDERABLES [facility] [place] [address] * Sodium (09/13/2017 9:09 AM EST) Sodium 143 135 - 145 mmol/L [facility] Blood specimen (specimen) 09/13/2017 9:09 AM EST 09/13/2017 9:13 AM EST Narrative Resulting Agency Comment Spec In Lab Ren Sanchez III, MD CHEMISTRY ORDERABLES Performing Organization Address City/[facility]/ZIP Co de Phone Number [facility] [place] [address] * Osmolality, urine, random (09/13/2017 4:35 AM EST) Osmolality, Urine 749 50 - 1,200 mOsm/kg [facility] Urine specimen (specimen) 09/13/2017 4:35 AM EST 09/13/2017 5:03 AM EST Narrative Resulting Agency Comment Spec In Lab Ren Sanchez III, MD URINE ORDERABLES [facility] [place] [address] * Sodium (09/13/2017 3:57 AM EST) Sodium 142 135 - 145 mmol/L [facility] Blood specimen (specimen) 09/13/2017 3:57 AM EST 09/13/2017 4:05 AM EST Narrative Resulting Agency Comment Spec In Lab Ren Sanchez III, MD CHEMISTRY ORDERABLES Performing Organization Address City/[facility] Co de Phone Number [facility] [place] [address] * Osmolality (09/13/2017 3:57 AM EST) Osmolality 292 275 - 295 mOsm/kg [facility] Blood specimen (specimen) 09/13/2017 3:57 AM EST 09/13/2017 4:05 AM EST Narrative Resulting Agency Comment Spec In Lab Ren Sanchez III, MD CHEMISTRY ORDERABLES Performing Organization Address [facility] de Phone Number [facility] [place] [id number] * Osmolality, urine, random (09/13/2017 12:38 AM EST) Osmolality, Urine 620 50 - 1,200 mOsm/kg [facility] Urine specimen (specimen) 09/13/2017 12:38 AM EST 09/13/2017 12:56 AM EST Narrative Resulting Agency Comment Spec In Lab Ren Sanchez III, MD URINE ORDERABLES Performing Organization Address City/[facility] Co de Phone Number [facility] [place] [address] * Osmolality (09/12/2017 11:43 PM EST) Osmolality 294 275 - 295 mOsm/kg [facility] Blood specimen (specimen) 09/12/2017 11:43 PM EST 09/12/2017 11:49 PM EST Narrative Resulting Agency Comment Spec In Lab Ren Sanchez III, MD CHEMISTRY ORDERABLES Performing Organization Address City/[facility] Co de Phone Number [facility] [place] [address] * Sodium (09/12/2017 11:43 PM EST) Sodium 143 135 - 145 mmol/L [facility] Blood specimen (specimen) 09/12/2017 11:43 PM EST 09/12/2017 11:49 PM EST Narrative Resulting Agency Comment Spec In Lab Ren Sanchez III, MD CHEMISTRY ORDERABLES Performing Organization Address [facility] Co de Phone Number [facility] [place] [address] * Osmolality, urine, random (09/12/2017 8:16 PM EST) Osmolality, Urine 773 50 - 1,200 mOsm/kg [facility] Urine specimen (specimen) 09/12/2017 8:16 PM EST 09/12/2017 8:36 PM EST Narrative Resulting Agency Comment Spec In Lab Ren Sanchez III, MD URINE ORDERABLES Performing Organization Address [facility] Co de Phone Number [facility] [place] [address] * (ABNORMAL) Osmolality (09/12/2017 7:39 PM EST) Osmolality 296(H) 275 - 295 mOsm/kg [facility] Blood specimen (specimen) 09/12/2017 7:39 PM EST 09/12/2017 7:54 PM EST Narrative Resulting Agency Comment Spec In Lab Ren Sanchez III, MD CHEMISTRY ORDERABLES Performing Organization Address [facility] Co de Phone Number [facility] [place] [address] * Sodium (09/12/2017 7:39 PM EST) Sodium 142 135 - 145 mmol/L [facility] Blood specimen (specimen) 09/12/2017 7:39 PM EST 09/12/2017 7:54 PM EST Narrative Resulting Agency Comment Spec In Lab Ren Sanchez III, MD CHEMISTRY ORDERABLES [facility] [place] [address] * Osmolality, urine, random (09/12/2017 3:54 PM EST) Osmolality, Urine 779 50 - 1,200 mOsm/kg [facility] Urine specimen (specimen) 09/12/2017 3:54 PM EST 09/12/2017 4:14 PM EST Narrative Resulting Agency Comment Spec In Lab Ren Sanchez III, MD URINE ORDERABLES Performing Organization Address City/[facility]/ZIP Co de Phone Number [facility] [place] [address] * (ABNORMAL) Osmolality (09/12/2017 3:52 PM EST) Osmolality 303(H) 275 - 295 mOsm/kg [facility] Blood specimen (specimen) 09/12/2017 3:52 PM EST 09/12/2017 3:57 PM EST Narrative Resulting Agency Comment Spec In Lab Ren Sanchez III, MD CHEMISTRY ORDERABLES Performing Organization Address City/[facility]/ZIP Co de Phone Number [facility] [place] [address] * Sodium (09/12/2017 3:52 PM EST) Sodium 145 135 - 145 mmol/L [facility] Blood specimen (specimen) 09/12/2017 3:52 PM EST 09/12/2017 3:57 PM EST Narrative Resulting Agency Comment Spec In Lab Ren Sanchez III, MD CHEMISTRY ORDERABLES Performing Organization Address City/[facility]/ZIP Co de Phone Number [facility] [place] [address] * Osmolality, urine, random (09/12/2017 1:19 PM EST) Osmolality, Urine 157 50 - 1,200 mOsm/kg [facility] Urine specimen (specimen) 09/12/2017 1:19 PM EST 09/12/2017 2:00 PM EST Narrative Resulting Agency Comment Spec In Lab Ren Sanchez III, MD URINE ORDERABLES Performing Organization Address [facility] Co de Phone Number [facility] [place] [address] * (ABNORMAL) Osmolality (09/12/2017 12:14 PM EST) Osmolality 302(H) 275 - 295 mOsm/kg [facility] Blood specimen (specimen) 09/12/2017 12:14 PM EST 09/12/2017 12:30 PM EST Narrative Resulting Agency Comment Spec In Lab Ren Sanchez III, MD CHEMISTRY ORDERABLES Performing Organization Address [facility] de Phone Number [facility] [place] [address] * (ABNORMAL) Sodium (09/12/2017 12:14 PM EST) Sodium 148(H) 135 - 145 mmol/L [facility] Blood specimen (specimen) 09/12/2017 12:14 PM EST 09/12/2017 12:30 PM EST Narrative Resulting Agency Comment Spec In Lab Ren Sanchez III, MD CHEMISTRY ORDERABLES Performing Organization Address [facility] Co de Phone Number [facility] [place] [address] * Sodium (09/12/2017 7:48 AM EST) Sodium 141 135 - 145 mmol/L [facility] Blood specimen (specimen) 09/12/2017 7:48 AM EST 09/12/2017 8:06 AM EST Narrative Resulting Agency Comment Spec In Lab Ren Sanchez III, MD CHEMISTRY ORDERABLES Performing Organization Address City/[facility]/ZIP Co de Phone Number [facility] [place] [address] * Sodium (09/12/2017 4:01 AM EST) Sodium 136 135 - 145 mmol/L [facility] Blood specimen (specimen) 09/12/2017 4:01 AM EST 09/12/2017 4:06 AM EST Narrative Resulting Agency Comment Spec In Lab Ren Snachez III, MD CHEMISTRY ORDERABLES [facility] [place] [address] * (ABNORMAL) Sodium (09/12/2017 12:02 AM EST) Sodium 133(L) 135 - 145 mmol/L [facility] Blood specimen (specimen) 09/12/2017 12:02 AM EST 09/12/2017 12:06 AM EST Narrative Resulting Agency Comment Spec In Lab Ren Sanchez III, MD CHEMISTRY ORDERABLES [facility] [place] [address] * Sodium (09/11/2017 7:53 PM EST) Sodium 135 135 - 145 mmol/L [facility] Blood specimen (specimen) 09/11/2017 7:53 PM EST 09/11/2017 7:57 PM EST Narrative Resulting Agency Comment Spec In Lab Ren Sanchez III, MD CHEMISTRY ORDERABLES [facility] [place] [address] * Sodium (09/11/2017 5:56 PM EST) Sodium 135 135 - 145 mmol/L [facility] Blood specimen (specimen) 09/11/2017 5:56 PM EST 09/11/2017 6:06 PM EST Narrative Resulting Agency Comment Spec In Lab Ren Sanchez III, MD CHEMISTRY ORDERABLES Performing Organization Address City/[facility]/ZIP Co de Phone Number [facility] [place] [address] * Sodium (09/11/2017 3:15 PM EST) Sodium 135 135 - 145 mmol/L [facility] Blood specimen (specimen) 09/11/2017 3:15 PM EST 09/11/2017 3:22 PM EST Narrative Resulting Agency Comment Spec In Lab Ren Sanchez III, MD CHEMISTRY ORDERABLES Performing Organization Address [facility] Co de Phone Number [facility] [place] [address] * (ABNORMAL) Sodium (09/11/2017 12:51 PM EST) Sodium 134(L) 135 - 145 mmol/L [facility] Blood specimen (specimen) 09/11/2017 12:51 PM EST 09/11/2017 1:03 PM EST Narrative Resulting Agency Comment Spec In Lab Ren Sanchez III, MD CHEMISTRY ORDERABLES Performing Organization Address [facility] Co de Phone Number [facility] [place] [address] * (ABNORMAL) Sodium (09/11/2017 10:48 AM EST) Sodium 132(L) 135 - 145 mmol/L [facility] Blood specimen (specimen) 09/11/2017 10:48 AM EST 09/11/2017 10:55 AM EST Narrative Resulting Agency Comment Spec In Lab Ren Sanchez III, MD CHEMISTRY ORDERABLES Performing Organization Address City/[facility]/ZIP Co de Phone Number [facility] [place] [address] * (ABNORMAL) Osmolality (09/11/2017 8:33 AM EST) Osmolality 271(L) 275 - 295 mOsm/kg [facility] Blood specimen (specimen) 09/11/2017 8:33 AM EST 09/11/2017 8:39 AM EST Narrative Resulting Agency Comment Spec In Lab Ren Sanchez III, MD CHEMISTRY ORDERABLES Performing Organization Address [facility] Co al Phone Number [facility] [place] [address] * (ABNORMAL) Sodium (09/11/2017 8:33 AM EST) Sodium 131(L) 135 - 145 mmol/L [facility] Blood specimen (specimen) 09/11/2017 8:33 AM EST 09/11/2017 8:39 AM EST Narrative Resulting Agency Comment Spec In Lab Ren Sanchez III, MD CHEMISTRY ORDERABLES Performing Organization Address [facility] Co de Phone Number [facility] [place] [address] * Osmolality, urine, random (09/11/2017 7:56 AM EST) Osmolality, Urine 571 50 - 1,200 mOsm/kg [facility] Urine specimen (specimen) 09/11/2017 7:56 AM EST 09/11/2017 8:16 AM EST Narrative Resulting Agency Comment Spec In Lab Ren Sanchez III, MD URINE ORDERABLES Performing Organization Address [facility] Co de Phone Number [facility] [place] [address] * (ABNORMAL) Basic Metabolic Panel (non-fasting) (09/11/2017 3:47 AM EST) Glucose 89 65 - 199 mg/dL [facility] Comment:Diabetes: >=200 mg/d L plus symptoms Blood Urea Nitrogen 14 10 - 20 mg/dL [facility] Creatinine 0.63(L) 0.80 - 1.50 mg/dL [facility] Sodium 128(L) 135 - 145 mmol/L [facility] Potassium 3.5 3.5 - 5.0 mmol/L [facility] Comment: Please note: ??Patients with WBC >100,000 may have falsely elevated Potassium levels. ??For accurate Potassium quantification in these patients send serum separator tube (gold top) for subsequent determinations. ??Contact the Clinical Chemistry Laboratory if there are any questions. Chloride 91(L) 98 - 107 mmol/L [facility] Carbon Dioxide 24 22 - 31 mmol/L [facility] Anion Gap 13 5 - 15 mmol/L [facility] Calcium 8.1(L) 8.5 - 10.5 mg/dL [facility] Est Glomerular Filtration Rate >60 >=60 [facility] Comment: The reported eGFR should be multiplied by 1.2 for patients. The MDRD is not an appropriate measure of renal function for patients with body mass extremes or in patients with acute kidney failure. [email or web address].[email or web address]/DHnkdep [email or web address]/DHMCnkf Blood specimen (specimen) 09/11/2017 3:47 AM EST 09/11/2017 4:03 AM EST Narrative Resulting Agency Comment Spec In Lab Ren Sanchez III, MD CHEMISTRY ORDERABLES Performing Organization Address [facility] Co de Phone Number [facility] [place] [address] * (ABNORMAL) Sodium (09/10/2017 6:57 PM EST) Sodium 130(L) 135 - 145 mmol/L [facility] Blood specimen (specimen) 09/10/2017 6:57 PM EST 09/10/2017 7:02 PM EST Narrative Resulting Agency Comment Spec In Lab Ren Sanchez III, MD CHEMISTRY ORDERABLES Performing Organization Address [facility] Co [place] [address] * (ABNORMAL) Differential, Automated (09/10/2017 3:50 AM EST) Pathologist [facility] Neutrophil % 51.9 % [facility] Neutrophil Absolute 4.55 1.70 - 6.10 x10(3)/[facility] Lymph % 21.8 % [facility] Lymphocytes Abs 1.9 0.9 - 3.2 x10(3)/[facility] Monocyte % 10.6 % [facility] Monocyte Abs 0.9 0.3 - 0.9 x10(3)/[facility] Eos % 7.0 % [facility] Eosinophils Abs 0.6(H) 0.0 - 0.4 x10(3)/[facility] Basophil % 0.6 % [facility] Baso Absolute 0.0 0.0 - 0.1 x10(3)/[facility] Immature Gran % 8.10 % [facility] Comment: Immature granulocytes(IG's)percentage and absolute count will include metamyelocytes, myelocytes, and promyelocytes. Blood smears from CBCs yielding IG's will be scanned manually for concordance. If this scan disagrees with the automated IG or if promyelocytes are noted, a manual differential will be performed. Immature Gran Absolute 0.71(H) 0.00 - 0.04 x10(3)/[facility] Blood specimen (specimen) 09/10/2017 3:50 AM EST 09/10/2017 4:15 AM EST Narrative Resulting Agency Comment Spec In Lab Christopher Dalal MD HEMATOLOGY ORDERABLE S [facility] [place] [address] * (ABNORMAL) Hemogram (09/10/2017 3:50 AM EST) [facility] White Blood Cell 8.8 4.0 - 9.5 x10(3)/mc L [facility] Red Blood Cell 3.06(L) 4.58 - 5.54 x10(6)/mc L [facility] Hemoglobin 8.5(L) 13.7 - 16.5 gm/dL [facility] Hematocrit 25.7(L) 40.5 - 48.5 % [facility] Mean Cell Volume 84.0 82.9 - 93.1 fL [facility] Mean Cell Hemoglobin 27.8 27.5 - 32.1 pg [facility] Mean Cell Hemoglobin Concentration 33.1 32.0 - 35.7 gm/dL [facility] Platelet 332 145 - 357 x10(3)/ L [facility] RDW Standard Deviation 45.8(H) 36.0 - 45.0 [facility] RDW coefficient of variation 15.7(H) 11.4 - 13.8 % [facility] Mean Platelet Volume 9.1 7.6 - 12.9 [facility] NRBC% auto 0.3 % [facility] NRBC Absolute 0.030(H) 0.000 - 0.000 x10(3)/[facility] Blood specimen (specimen) 09/10/2017 3:50 AM EST 09/10/2017 4:15 AM EST Narrative Resulting Agency Comment Spec In Lab Christopher Dalal MD HEMATOLOGY ORDERABLE S [facility] [place] [address] * Sodium (09/10/2017 3:50 AM EST) Sodium 138 135 - 145 mmol/L [facility] Blood specimen (specimen) 09/10/2017 3:50 AM EST 09/10/2017 4:15 AM EST Narrative Resulting Agency Comment Spec In Lab Ren Sanchez III, MD CHEMISTRY ORDERABLES Performing Organization Address City/[facility]/ZIP Co de Phone Number [facility] [place] [address] * Sodium (09/09/2017 11:02 AM EST) Pathologist [facility] Sodium 141 135 - 145 mmol/L [facility] Blood specimen (specimen) 09/09/2017 11:02 AM EST 09/09/2017 11:13 AM EST Narrative Resulting Agency Comment Spec In Lab Ren Sanchez III, MD CHEMISTRY ORDERABLES Performing Organization Address [facility] Co de Phone Number [facility] [place] [address] * Scan, Peripheral Blood (09/09/2017 3:21 AM EST) Pathologist [facility] Plat estimate Normal [facility] RBC Morphology Abnormal [facility] Polychromasia Present >5/HPF [facility] Ovalocytes 1-5 /HPF [facility] Blood specimen (specimen) 09/09/2017 3:21 AM EST 09/09/2017 3:31 AM EST Narrative Resulting Agency Comment Spec In Lab Christopher Dalal MD HEMATOLOGY ORDERABLE S Performing Organization Address [facility] Co de Phone Number [facility] [place] [address] * (ABNORMAL) Differential, Automated (09/09/2017 3:21 AM EST) Pathologist [facility] Neutrophil % 50.7 % [facility] Neutrophil Absolute 3.95 1.70 - 6.10 x10(3)/mc L [facility] Lymph % 21.8 % [facility] Lymphocytes Abs 1.7 0.9 - 3.2 x10(3)/mc L [facility] Monocyte % 10.3 % [facility] Monocyte Abs 0.8 0.3 - 0.9 x10(3)/mc L [facility] Eos % 7.9 % [facility] Eosinophils Abs 0.6(H) 0.0 - 0.4 x10(3)/[facility] LAB[facility] Basophil % 0.8 % [facility] Baso Absolute 0.1 0.0 - 0.1 x10(3)/[facility] LAB[facility] Immature Gran % 8.50 % [facility] Comment: Immature granulocytes(IG's)percentage and absolute count will include metamyelocytes, myelocytes, and promyelocytes. Blood smears from CBCs yielding IG's will be scanned manually for concordance. If this scan disagrees with the automated IG or if promyelocytes are noted, a manual differential will be performed. Immature Gran Absolute 0.66(H) 0.00 - 0.04 x10(3)/[facility] Blood specimen (specimen) 09/09/2017 3:21 AM EST 09/09/2017 3:31 AM EST Narrative Resulting Agency Comment Spec In Lab Christopher Dalal MD HEMATOLOGY ORDERABLE S [facility] [place] [address] * (ABNORMAL) Hemogram (09/09/2017 3:21 AM EST) White Blood Cell 7.8 4.0 - 9.5 x10(3)/[facility] Red Blood Cell 2.80(L) 4.58 - 5.54 x10(6)/ L [facility] Hemoglobin 7.7(L) 13.7 - 16.5 gm/dL [facility] Hematocrit 23.7(L) 40.5 - 48.5 % [facility] Mean Cell Volume 84.6 82.9 - 93.1 fL [facility] Mean Cell Hemoglobin 27.5 27.5 - 32.1 pg [facility] Mean Cell Hemoglobin Concentration 32.5 32.0 - 35.7 gm/dL [facility] Platelet 245 145 - 357 x10(3)/mc L [facility] RDW Standard Deviation 46.8(H) 36.0 - 45.0 fL [facility] RDW coefficient of variation 15.5(H) 11.4 - 13.8 % [facility] Mean Platelet Volume 9.1 7.6 - 12.9 fL [facility] NRBC% auto 0.8 % [facility] NRBC Absolute 0.060(H) 0.000 - 0.000 x10(3)/mc L [facility] Blood specimen (specimen) 09/09/2017 3:21 AM EST 09/09/2017 3:31 AM EST Narrative Resulting Agency Comment Spec In Lab Christopher Dalal MD HEMATOLOGY ORDERABLE S Performing Organization Address [facility] de Phone Number [facility] [place] [address] * Sodium (09/09/2017 3:21 AM EST) Sodium 140 135 - 145 mmol/L [facility] Blood specimen (specimen) 09/09/2017 3:21 AM EST 09/09/2017 3:31 AM EST Narrative Resulting Agency Comment Spec In Lab Ren Sanchez III, MD CHEMISTRY ORDERABLES Performing Organization Address [facility] de Phone Number [facility] [place] [address] * Sodium (09/08/2017 6:19 PM EST) Sodium 138 135 - 145 mmol/L [facility] Blood specimen (specimen) 09/08/2017 6:19 PM EST 09/08/2017 6:26 PM EST Narrative Resulting Agency Comment Spec In Lab Ren Sanchez III, MD CHEMISTRY ORDERABLES Performing Organization Address [facility] Co de Phone Number [facility] [place] [address] * U24 Hrs and Volume (09/08/2017 6:00 PM EST) Hours Collected 24 hour(s) [facility] Total Volume 4,700 mL [facility] Urine specimen (specimen) 09/08/2017 6:00 PM EST 09/08/2017 6:42 PM EST Narrative Resulting Agency Comment Spec In Lab Ren Sanchez III, MD CHEMISTRY ORDERABLES Performing Organization Address City/[facility] Co de Phone Number [facility] [place] [address] * Phosphorus, urine, 24 hour (09/08/2017 6:00 PM EST) Phosphorus Concentration, U24 12.5 mg/dL [facility] Phosphorus, 24 Hour Urine 0.6 0.4 - 1.3 gm/24hr [facility] Urine specimen (specimen) 09/08/2017 6:00 PM EST 09/08/2017 6:42 PM EST Narrative Resulting Agency Comment Spec In Lab Ren Sanchez III, MD URINE ORDERABLES Performing Organization Address City/[facility]/ZIP Co de Phone Number [facility] [place] [address] * Creatinine, urine, 24 hour (09/08/2017 6:00 PM EST) Cre Concentration, U24 37 mg/dL [facility] Creatinine, 24 Hour Urine 1.74 0.80 - 1.90 gm/24hr [facility] Urine specimen (specimen) 09/08/2017 6:00 PM EST 09/08/2017 6:42 PM EST Narrative Resulting Agency Comment Spec In Lab Ren Sanchez III, MD URINE ORDERABLES Performing Organization Address City/[facility]/ZIP Co de Phone Number [facility] [place] [address] * (ABNORMAL) Calcium, urine, 24 hour (09/08/2017 6:00 PM EST) [facility] Ca Concentration, U24 7.6 mg/dL [facility] Calcium, 24 Hour Urine 357.2(H) 50.0 - 300.0 mg/24hr [facility] Comment:Reference Range: 50. 0-300.0 mg/24 hour based on diet. Urine specimen (specimen) 09/08/2017 6:00 PM EST 09/08/2017 6:42 PM EST Narrative Resulting Agency Comment Spec In Lab Ren Sanchez III, MD URINE ORDERABLES Performing Organization Address [facility] de Phone Number [facility] [place] [address] * Sodium (09/08/2017 11:58 AM EST) [facility] Sodium 141 135 - 145 mmol/L [facility] Blood specimen (specimen) 09/08/2017 11:58 AM EST 09/08/2017 12:11 PM EST Narrative Resulting Agency Comment Spec In Lab Ren Sanchez III, MD CHEMISTRY ORDERABLES Performing Organization Address [facility] de Phone Number [facility] [place] [address] * (ABNORMAL) Differential, Automated (09/08/2017 3:34 AM EST) [facility] Neutrophil % 53.0 % [facility] Neutrophil Absolute 3.33 1.70 - 6.10 x10(3)/mc L [facility] Lymph % 25.8 % [facility] Lymphocytes Abs 1.6 0.9 - 3.2 x10(3)/mc L [facility] Monocyte % 8.4 % [facility] Monocyte Abs 0.5 0.3 - 0.9 x10(3)/mc L [facility] Eos % 8.8 % [facility] Eosinophils Abs 0.6(H) 0.0 - 0.4 x10(3)/[facility] Basophil % 0.3 % [facility] Baso Absolute 0.0 0.0 - 0.1 x10(3)/[facility] Immature Gran % 3.70 % [facility] Comment: Immature granulocytes(IG's)percentage and absolute count will include metamyelocytes, myelocytes, and promyelocytes. Blood smears from CBCs yielding IG's will be scanned manually for concordance. If this scan disagrees with the automated IG or if promyelocytes are noted, a manual differential will be performed. Immature Gran Absolute 0.23(H) 0.00 - 0.04 x10(3)/[facility] LAB[facility] Blood specimen (specimen) 09/08/2017 3:34 AM EST 09/08/2017 3:59 AM EST Narrative Resulting Agency Comment Spec In Lab Christopher Dalal MD HEMATOLOGY ORDERABLE S Performing Organization Address City/State/[facility] Co de Phone Number [facility] [place] [address] * (ABNORMAL) Hemogram (09/08/2017 3:34 AM EST) White Blood Cell 6.3 4.0 - 9.5 x10(3)/[facility] Red Blood Cell 2.64(L) 4.58 - 5.54 x10(6)/ L [facility] Hemoglobin 7.2(L) 13.7 - 16.5 gm/dL [facility] Hematocrit 21.8(L) 40.5 - 48.5 % [facility] Mean Cell Volume 82.6(L) 82.9 - 93.1 fL [facility] Mean Cell Hemoglobin 27.3(L) 27.5 - 32.1 pg [facility] Mean Cell Hemoglobin Concentration 33.0 32.0 - 35.7 gm/dL [facility] Platelet 206 145 - 357 x10(3)/mc L [facility] RDW Standard Deviation 45.4(H) 36.0 - 45.0 fL [facility] RDW coefficient of variation 15.4(H) 11.4 - 13.8 % [facility] Mean Platelet Volume 9.3 7.6 - 12.9 fL [facility] NRBC% auto 0.8 % [facility] NRBC Absolute 0.050(H) 0.000 - 0.000 x10(3)/mc L [facility] Blood specimen (specimen) 09/08/2017 3:34 AM EST 09/08/2017 3:59 AM EST Narrative Resulting Agency Comment Spec In Lab Christopher Dalal MD HEMATOLOGY ORDERABLE S Performing Organization Address [facility] de Phone Number [facility] [place] [address] * Sodium (09/08/2017 3:34 AM EST) Sodium 143 135 - 145 mmol/L [facility] Blood specimen (specimen) 09/08/2017 3:34 AM EST 09/08/2017 3:59 AM EST Narrative Resulting Agency Comment Spec In Lab Ren Sanchez III, MD CHEMISTRY ORDERABLES Performing Organization Address [facility] de Phone Number [facility] [place] [address] * Phosphorus (09/08/2017 3:34 AM EST) Phosphorus 3.2 2.5 - 4.5 mg/dL [facility] Blood specimen (specimen) 09/08/2017 3:34 AM EST 09/08/2017 3:59 AM EST Narrative Resulting Agency Comment Spec In Lab Ren Sanchez III, MD CHEMISTRY ORDERABLES Performing Organization Address [facility] Co de Phone Number [facility] [place] [address] * (ABNORMAL) Calcium (09/08/2017 3:34 AM EST) Calcium 7.8(L) 8.5 - 10.5 mg/dL [facility] Blood specimen (specimen) 09/08/2017 3:34 AM EST 09/08/2017 3:59 AM EST Narrative Resulting Agency Comment Spec In Lab Ren Sanchez III, MD CHEMISTRY ORDERABLES Performing Organization Address City/[facility]/ZIP Co de Phone Number [facility] [place] [address] * Sodium (09/07/2017 12:20 PM EST) Sodium 140 135 - 145 mmol/L [facility] Blood specimen (specimen) 09/07/2017 12:20 PM EST 09/07/2017 12:26 PM EST Narrative Resulting Agency Comment Spec In Lab Ren Sanchez III, MD CHEMISTRY ORDERABLES Performing Organization Address [facility]/ZIP Co de Phone Number [facility] [place] [address] * Sodium (09/07/2017 4:01 AM EST) Sodium 141 135 - 145 mmol/L [facility] Blood specimen (specimen) 09/07/2017 4:01 AM EST 09/07/2017 4:33 AM EST Narrative Resulting Agency Comment Spec In Lab Fran Gilliam MD CHEMISTRY ORDERABL ES Performing Organization Address City/[facility]/ZIP Co de Phone Number [facility] [place] [address] * (ABNORMAL) Differential, Automated (09/07/2017 4:01 AM EST) Neutrophil % 64.9 % [facility] Neutrophil Absolute 3.64 1.70 - 6.10 x10(3)/mc L [facility] Lymph % 20.0 % [facility] Lymphocytes Abs 1.1 0.9 - 3.2 x10(3)/[facility] Monocyte % 7.8 % [facility] Monocyte Abs 0.4 0.3 - 0.9 x10(3)/[facility] Eos % 4.8 % [facility] Eosinophils Abs 0.3 0.0 - 0.4 x10(3)/[facility] Basophil % 0.5 % [facility] Baso Absolute 0.0 0.0 - 0.1 x10(3)/[facility] Immature Gran % 2.00 % [facility] Comment: Immature granulocytes(IG's)percentage and absolute count will include metamyelocytes, myelocytes, and promyelocytes. Blood smears from CBCs yielding IG's will be scanned manually for concordance. If this scan disagrees with the automated IG or if promyelocytes are noted, a manual differential will be performed. Immature Gran Absolute 0.11(H) 0.00 - 0.04 x10(3)/[facility] Blood specimen (specimen) 09/07/2017 4:01 AM EST 09/07/2017 4:33 AM EST Narrative Resulting Agency Comment Spec In Lab Christopher Dalal MD HEMATOLOGY ORDERABLE S Performing Organization Address City/State/[facility] Co de Phone Number [facility] [place] [address] * (ABNORMAL) Hemogram (09/07/2017 4:01 AM EST) White Blood Cell 5.6 4.0 - 9.5 x10(3)/[facility] Red Blood Cell 2.52(L) 4.58 - 5.54 x10(6)/[facility] Hemoglobin 7.0(L) 13.7 - 16.5 gm/dL [facility] Hematocrit 20.5(L) 40.5 - 48.5 % [facility] Mean Cell Volume 81.3(L) 82.9 - 93.1 fL [facility] Mean Cell Hemoglobin 27.8 27.5 - 32.1 pg [facility] Mean Cell Hemoglobin Concentration 34.1 32.0 - 35.7 gm/dL [facility] Platelet 162 145 - 357 x10(3)/mc L [facility] RDW Standard Deviation 44.5 36.0 - 45.0 [facility] RDW coefficient of variation 15.3(H) 11.4 - 13.8 % [facility] Mean Platelet Volume 9.5 7.6 - 12.9 [facility] NRBC% auto 0.4 % [facility] NRBC Absolute 0.020(H) 0.000 - 0.000 x10(3)/mc L [facility] Blood specimen (specimen) 09/07/2017 4:01 AM EST 09/07/2017 4:33 AM EST Narrative Resulting Agency Comment Spec In Lab Christopher Dalal MD HEMATOLOGY ORDERABLE S Performing Organization Address City/[facility]/ZIP Co de Phone Number [facility] [place] [address] * Sodium (09/06/2017 11:27 PM EST) Sodium 144 135 - 145 mmol/L [facility] Blood specimen (specimen) 09/06/2017 11:27 PM EST 09/07/2017 12:10 AM EST Narrative Resulting Agency Comment Spec In Lab Fran Gilliam MD CHEMISTRY ORDERABL ES Performing Organization Address [facility] Co de Phone Number [facility] [place] [address] * (ABNORMAL) Calcium (09/06/2017 11:27 PM EST) Calcium 7.6(L) 8.5 - 10.5 mg/dL [facility] Blood specimen (specimen) 09/06/2017 11:27 PM EST 09/07/2017 12:10 AM EST Narrative Resulting Agency Comment Spec In Lab Ren Sanchez III, MD CHEMISTRY ORDERABLES Performing Organization Address [facility] Phone Number [facility] [place] [address] * Phosphorus (09/06/2017 11:27 PM EST) Phosphorus 3.4 2.5 - 4.5 mg/dL [facility] Blood specimen (specimen) 09/06/2017 11:27 PM EST 09/07/2017 12:10 AM EST Narrative Resulting Agency Comment Spec In Lab Ren Sanchez III, MD CHEMISTRY ORDERABLES Performing Organization Address [facility] Phone Number [facility] [place] [address] * Sodium (09/06/2017 7:41 PM EST) Sodium 143 135 - 145 mmol/L [facility] Blood specimen (specimen) 09/06/2017 7:41 PM EST 09/06/2017 7:45 PM EST Narrative Resulting Agency Comment Spec In Lab Fran Gilliam MD CHEMISTRY ORDERABL ES Performing Organization Address [facility] Co de Phone Number [facility] [place] [address] * Sodium (09/06/2017 3:49 PM EST) Sodium 144 135 - 145 mmol/L [facility] Blood specimen (specimen) Venous Draw / Unknown 09/06/2017 3:49 PM EST 09/06/2017 3:58 PM EST Narrative Resulting Agency Comment Spec In Lab Guerrero Tillman MD CHEMISTRY HERMES HANNON [facility] [place] [address] * (ABNORMAL) Calcium (09/06/2017 3:49 PM EST) Calcium 8.0(L) 8.5 - 10.5 mg/dL [facility] Blood specimen (specimen) 09/06/2017 3:49 PM EST 09/06/2017 3:58 PM EST Narrative Resulting Agency Comment Spec In Lab Ren Sanchez III, MD CHEMISTRY ORDERABLES Performing Organization Address [facility]/ZIP Co de Phone Number [facility] [place] [address] * Phosphorus (09/06/2017 3:49 PM EST) Pathologist [facility] Phosphorus 3.9 2.5 - 4.5 mg/dL [facility] Blood specimen (specimen) 09/06/2017 3:49 PM EST 09/06/2017 3:58 PM EST Narrative Resulting Agency Comment Spec In Lab Ren Sanchez III, MD CHEMISTRY ORDERABLES Performing Organization Address [facility]/ZIP Co de Phone Number [facility] [place] [address] * (ABNORMAL) Albumin Level (09/06/2017 12:31 PM EST) Pathologist [facility] Albumin 2.5(L) 3.2 - 5.2 gm/dL [facility] Blood specimen (specimen) 09/06/2017 12:31 PM EST 09/06/2017 12:38 PM EST Narrative Resulting Agency Comment Spec In Lab Genevieve Page MD CHEMISTRY ORDERABLES Performing Organization Address City/[facility]/ZIP Co de Phone Number [facility] [place] [address] * Sodium (09/06/2017 12:31 PM EST) Sodium 145 135 - 145 mmol/L [facility] Blood specimen (specimen) 09/06/2017 12:31 PM EST 09/06/2017 12:37 PM EST Narrative Resulting Agency Comment Spec In Lab Fran Gilliam MD CHEMISTRY ORDERABL ES Performing Organization Address [facility] Co de Phone Number [facility] [place] [address] * (ABNORMAL) Albumin Level (09/06/2017 8:33 AM EST) Albumin 2.4(L) 3.2 - 5.2 gm/dL [facility] Blood specimen (specimen) 09/06/2017 8:33 AM EST 09/06/2017 8:39 AM EST Narrative Resulting Agency Comment Spec In Lab Genevieve Page MD CHEMISTRY ORDERABLES Performing Organization Address [facility] Co de Phone Number [facility] [place] [address] * Phosphorus (09/06/2017 8:33 AM EST) Phosphorus 3.2 2.5 - 4.5 mg/dL [facility] Blood specimen (specimen) 09/06/2017 8:33 AM EST 09/06/2017 8:39 AM EST Narrative Resulting Agency Comment Spec In Lab Fran Gilliam MD CHEMISTRY ORDERABL ES Performing Organization Address [facility] Co de Phone Number [facility] [place] [address] * (ABNORMAL) Calcium (09/06/2017 8:33 AM EST) Calcium 8.1(L) 8.5 - 10.5 mg/dL [facility] Blood specimen (specimen) 09/06/2017 8:33 AM EST 09/06/2017 8:39 AM EST Narrative Resulting Agency Comment Spec In Lab Fran Gilliam MD CHEMISTRY ORDERABL ES Performing Organization Address City/[facility]/ZIP Co de Phone Number [facility] [place] [address] * (ABNORMAL) Sodium (09/06/2017 8:33 AM EST) Sodium 146(H) 135 - 145 mmol/L [facility] Blood specimen (specimen) 09/06/2017 8:33 AM EST 09/06/2017 8:39 AM EST Narrative Resulting Agency Comment Spec In Lab Fran Gilliam MD CHEMISTRY ORDERABL ES Performing Organization Address [facility] Co de Phone Number [facility] [place] [address] * (ABNORMAL) Basic Metabolic Panel (non-fasting) (09/06/2017 8:33 AM EST) Glucose 72 65 - 199 mg/dL [facility] Comment:Diabetes: >=200 mg/d L plus symptoms Blood Urea Nitrogen 18 10 - 20 mg/dL [facility] Creatinine 0.79(L) 0.80 - 1.50 mg/dL [facility] Sodium 146(H) 135 - 145 mmol/L [facility] Potassium 3.7 3.5 - 5.0 mmol/L [facility] Comment: Please note: ??Patients with WBC >100,000 may have falsely elevated Potassium levels. ??For accurate Potassium quantification in these patients send serum separator tube (gold top) for subsequent determinations. ??Contact the Clinical Chemistry Laboratory if there are any questions. Chloride 111(H) 98 - 107 mmol/L [facility] Carbon Dioxide 26 22 - 31 mmol/L [facility] Anion Gap 9 5 - 15 mmol/L [facility] Calcium 8.1(L) 8.5 - 10.5 mg/dL [facility] Est Glomerular Filtration Rate >60 >=60 [facility] Comment: The reported eGFR should be multiplied by 1.2 for patients. The MDRD is not an appropriate measure of renal function for patients with body mass extremes or in patients with acute kidney failure. http://[employer]/DHnkdep http://[employer]/DHMCnkf Blood specimen (specimen) 09/06/2017 8:33 AM EST 09/06/2017 8:39 AM EST Narrative Resulting Agency Comment Spec In Lab Fran Gilliam MD CHEMISTRY ORDERABL ES [facility] [place] [address] * (ABNORMAL) Hemogram (09/06/2017 8:33 AM EST) White Blood Cell 7.0 4.0 - 9.5 x10(3)/mc L [facility] Red Blood Cell 2.87(L) 4.58 - 5.54 x10(6)/mc L [facility] Hemoglobin 7.8(L) 13.7 - 16.5 gm/dL [facility] Hematocrit 23.4(L) 40.5 - 48.5 % [facility] Mean Cell Volume 81.5(L) 82.9 - 93.1 fL [facility] Mean Cell Hemoglobin 27.2(L) 27.5 - 32.1 pg [facility] Mean Cell Hemoglobin Concentration 33.3 32.0 - 35.7 gm/dL [facility] Platelet 149 145 - 357 x10(3)/mc L [facility] RDW Standard Deviation 44.3 36.0 - 45.0 fL [facility] RDW coefficient of variation 15.2(H) 11.4 - 13.8 % [facility] Mean Platelet Volume 9.8 7.6 - 12.9 fL [facility] NRBC% auto 0.3 % [facility] NRBC Absolute 0.020(H) 0.000 - 0.000 x10(3)/mc L [facility] Blood specimen (specimen) 09/06/2017 8:33 AM EST 09/06/2017 8:39 AM EST Narrative Resulting Agency Comment Spec In Lab Juliet Medeiros MEAT LOINER HEMATOLOGY ORDERABLE S [facility] [place] [address] * (ABNORMAL) Basic Metabolic Panel (non-fasting) (09/06/2017 4:31 AM EST) Glucose 92 65 - 199 mg/dL [facility] Comment:Diabetes: >=200 mg/d L plus symptoms Blood Urea Nitrogen 16 10 - 20 mg/dL [facility] Comment:result rechecked-IMM Creatinine 0.75(L) 0.80 - 1.50 mg/dL [facility] Sodium 144 135 - 145 mmol/L [facility] Potassium 3.6 3.5 - 5.0 mmol/L [facility] Comment: Please note: ??Patients with WBC >100,000 may have falsely elevated Potassium levels. ??For accurate Potassium quantification in these patients send serum separator tube (gold top) for subsequent determinations. ??Contact the Clinical Chemistry Laboratory if there are any questions. Chloride 109(H) 98 - 107 mmol/L [facility] Carbon Dioxide 25 22 - 31 mmol/L [facility] Anion Gap 10 5 - 15 mmol/L [facility] Calcium 7.7(L) 8.5 - 10.5 mg/dL [facility] Est Glomerular Filtration Rate >60 >=60 [facility] Comment: The reported eGFR should be multiplied by 1.2 for patients. The MDRD is not an appropriate measure of renal function for patients with body mass extremes or in patients with acute kidney failure. http://[employer]/DHnkdep http://[employer]/DHMCnkf Blood specimen (specimen) 09/06/2017 4:31 AM EST 09/06/2017 5:04 AM EST Narrative Resulting Agency Comment Spec In Lab Fran Gilliam MD CHEMISTRY ORDERABL ES Performing Organization Address [facility] Co de Phone Number [facility] [place] [address] * Phosphorus (09/06/2017 4:31 AM EST) Phosphorus 3.5 2.5 - 4.5 mg/dL [facility] Blood specimen (specimen) 09/06/2017 4:31 AM EST 09/06/2017 5:04 AM EST Narrative Resulting Agency Comment Spec In Lab Fran Gilliam MD CHEMISTRY ORDERABL ES Performing Organization Address [facility] [place] [address] * (ABNORMAL) Calcium (09/06/2017 4:31 AM EST) Calcium 7.7(L) 8.5 - 10.5 mg/dL [facility] Blood specimen (specimen) 09/06/2017 4:31 AM EST 09/06/2017 5:04 AM EST Narrative Resulting Agency Comment Spec In Lab Fran Gilliam MD CHEMISTRY ORDERABL ES Performing Organization Address [facility] Co de Phone Number [facility] [place] [address] * Sodium (09/06/2017 4:31 AM EST) Sodium 144 135 - 145 mmol/L [facility] Blood specimen (specimen) 09/06/2017 4:31 AM EST 09/06/2017 5:04 AM EST Narrative Resulting Agency Comment Spec In Lab Fran Gilliam MD CHEMISTRY ORDERABL ES Performing Organization Address [facility] Co de Phone Number [facility] [place] [address] * (ABNORMAL) Albumin Level (09/06/2017 4:31 AM EST) [facility] Albumin 2.6(L) 3.2 - 5.2 gm/dL [facility] Blood specimen (specimen) 09/06/2017 4:31 AM EST 09/06/2017 5:05 AM EST Narrative Resulting Agency Comment Spec In Lab Genevieve Page MD CHEMISTRY ORDERABLES [facility] [place] [address] * (ABNORMAL) Differential, Automated (09/06/2017 4:31 AM EST) Pathologist [facility] Neutrophil % 60.5 % [facility] Neutrophil Absolute 4.00 1.70 - 6.10 x10(3)/mc L [facility] Lymph % 24.2 % [facility] Lymphocytes Abs 1.6 0.9 - 3.2 x10(3)/mc L [facility] Monocyte % 9.5 % [facility] Monocyte Abs 0.6 0.3 - 0.9 x10(3)/mc L [facility] Eos % 3.8 % [facility] Eosinophils Abs 0.2 0.0 - 0.4 x10(3)/mc L [facility] Basophil % 0.5 % [facility] Baso Absolute 0.0 0.0 - 0.1 x10(3)/mc L [facility] Immature Gran % 1.50 % [facility] Comment: Immature granulocytes(IG's)percentage and absolute count will include metamyelocytes, myelocytes, and promyelocytes. Blood smears from CBCs yielding IG's will be scanned manually for concordance. If this scan disagrees with the automated IG or if promyelocytes are noted, a manual differential will be performed. Immature Gran Absolute 0.10(H) 0.00 - 0.04 x10(3)/mc L [facility] Blood specimen (specimen) 09/06/2017 4:31 AM EST 09/06/2017 5:04 AM EST Narrative Resulting Agency Comment Spec In Lab Christopher Dalal MD HEMATOLOGY ORDERABLE S [facility] [place] [address] * (ABNORMAL) Hemogram (09/06/2017 4:31 AM EST) White Blood Cell 6.6 4.0 - 9.5 x10(3)/[facility] Red Blood Cell 2.72(L) 4.58 - 5.54 x10(6)/ L [facility] Hemoglobin 7.4(L) 13.7 - 16.5 gm/dL [facility] Comment: This result has been called to [place] FORMAN by Desean Pope on 09 06 2017 at 0515, and has been read back. Hematocrit 22.2(L) 40.5 - 48.5 % [facility] Mean Cell Volume 81.6(L) 82.9 - 93.1 fL [facility] Mean Cell Hemoglobin 27.2(L) 27.5 - 32.1 pg [facility] Mean Cell Hemoglobin Concentration 33.3 32.0 - 35.7 gm/dL [facility] Platelet 153 145 - 357 x10(3)/ L [facility] RDW Standard Deviation 43.5 36.0 - 45.0 [facility] RDW coefficient of variation 14.9(H) 11.4 - 13.8 % [facility] Mean Platelet Volume 10.3 7.6 - 12.9 [facility] NRBC% auto 0.3 % [facility] NRBC Absolute 0.020(H) 0.000 - 0.000 x10(3)/ L [facility] Blood specimen (specimen) 09/06/2017 4:31 AM EST 09/06/2017 5:04 AM EST Narrative Resulting Agency Comment Spec In Lab Christopher Dalal MD HEMATOLOGY ORDERABLE S Performing Organization Address [facility] Co de Phone Number [facility] [place] [address] * Phosphorus (09/05/2017 11:14 PM EST) Phosphorus 2.9 2.5 - 4.5 mg/dL [facility] Blood specimen (specimen) 09/05/2017 11:14 PM EST 09/05/2017 11:26 PM EST Narrative Resulting Agency Comment Spec In Lab Fran Gilliam MD CHEMISTRY ORDERABL ES Performing Organization Address [facility] Phone Number [facility] [place] [address] * (ABNORMAL) Calcium (09/05/2017 11:14 PM EST) Calcium 7.6(L) 8.5 - 10.5 mg/dL [facility] Blood specimen (specimen) 09/05/2017 11:14 PM EST 09/05/2017 11:26 PM EST Narrative Resulting Agency Comment Spec In Lab Fran Gilliam MD CHEMISTRY ORDERABL ES Performing Organization Address [facility] Co de Phone Number [facility] [place] [address] * Sodium (09/05/2017 11:14 PM EST) Sodium 142 135 - 145 mmol/L [facility] Blood specimen (specimen) 09/05/2017 11:14 PM EST 09/05/2017 11:26 PM EST Narrative Resulting Agency Comment Spec In Lab Fran Gilliam MD CHEMISTRY ORDERABL ES Performing Organization Address [facility] Co de Phone Number [facility] [place] [address] * (ABNORMAL) Albumin Level (09/05/2017 11:14 PM EST) Albumin 2.3(L) 3.2 - 5.2 gm/dL [facility] Blood specimen (specimen) 09/05/2017 11:14 PM EST 09/05/2017 11:26 PM EST Narrative Resulting Agency Comment Spec In Lab Genevieve Page MD CHEMISTRY ORDERABLES Performing Organization Address City/[facility]/ZIP Co de Phone Number [facility] [place] [address] * (ABNORMAL) Albumin Level (09/05/2017 7:08 PM EST) Albumin 2.4(L) 3.2 - 5.2 gm/dL [facility] Blood specimen (specimen) Venous Draw / Unknown 09/05/2017 7:08 PM EST 09/05/2017 7:18 PM EST Narrative Resulting Agency Comment Spec In Lab Genevieve Page MD CHEMISTRY ORDERABLES Performing Organization Address [facility]/ZIP Co de Phone Number [facility] [place] [address] * (ABNORMAL) Phosphorus (09/05/2017 7:08 PM EST) Phosphorus 2.0(L) 2.5 - 4.5 mg/dL [facility] Comment:result rechecked- Blood specimen (specimen) 09/05/2017 7:08 PM EST 09/05/2017 7:12 PM EST Narrative Resulting Agency Comment Spec In Lab Fran Gilliam MD CHEMISTRY ORDERABL ES Performing Organization Address City/[facility]/ZIP Co de Phone Number [facility] [place] [address] * (ABNORMAL) Calcium (09/05/2017 7:08 PM EST) Calcium 7.4(L) 8.5 - 10.5 mg/dL [facility] Blood specimen (specimen) 09/05/2017 7:08 PM EST 09/05/2017 7:12 PM EST Narrative Resulting Agency Comment Spec In Lab Fran Gilliam MD CHEMISTRY ORDERABL ES Performing Organization Address [facility] de Phone Number [facility] [place] [address] * Sodium (09/05/2017 7:08 PM EST) Sodium 145 135 - 145 mmol/L [facility] Blood specimen (specimen) 09/05/2017 7:08 PM EST 09/05/2017 7:12 PM EST Narrative Resulting Agency Comment Spec In Lab Fran Gilliam MD CHEMISTRY ORDERABL ES Performing Organization Address [facility] de Phone Number [facility] [place] [address] * 1,25-dihydroxycholecalciferol (09/05/2017 4:54 PM EST) Vit D 1,25 Dihydroxy (NOVEMBER) 57 18 - 64 pg/mL [facility] Comment: ADDITIONAL INFORMATION This test was developed and its performance characteristics determined by [facility] in a manner consistent with CLIA requirements. This test has not been cleared or approved by the U.S. Food and Drug Administration. Test Performed by: [facility] [address] [place] [address] Blood specimen (specimen) 09/05/2017 4:54 PM EST 09/08/2017 2:05 PM EST Narrative Resulting Agency Comment Spec In Lab Fran Gilliam MD LAB SEND OUT ORDER LYNDSEY Performing Organization Address [facility]/State/ZIP Co de Phone Number [facility] [place] [address] * (ABNORMAL) Electrolytes panel (09/05/2017 3:06 PM EST) Sodium 146(H) 135 - 145 mmol/L [facility] Potassium 3.9 3.5 - 5.0 mmol/L [facility] Comment: Please note: ??Patients with WBC >100,000 may have falsely elevated Potassium levels. ??For accurate Potassium quantification in these patients send serum separator tube (gold top) for subsequent determinations. ??Contact the Clinical Chemistry Laboratory if there are any questions. Chloride 114(H) 98 - 107 mmol/L [facility] Carbon Dioxide 24 22 - 31 mmol/L [facility] Anion Gap 8 5 - 15 mmol/L [facility] LABORATORY Blood specimen (specimen) 09/05/2017 3:06 PM EST 09/05/2017 3:16 PM EST Narrative Resulting Agency Comment Spec In Lab Fran Gilliam MD CHEMISTRY ORDERABL ES Performing Organization Address City/[facility]/ZIP Co de Phone Number [facility] [place] [address] * PTH (09/05/2017 11:29 AM EST) Parathyroid Hormone 29 15 - 65 pg/mL [facility] Blood specimen (specimen) 09/05/2017 11:29 AM EST 09/05/2017 11:48 AM EST Narrative Resulting Agency Comment Spec In Lab Fran Gilliam MD CHEMISTRY ORDERABL ES [facility] [place] [address] * Vitamin D, 25-Hydroxy (09/05/2017 11:29 AM EST) Vitamin D Total 25 OH 34 30 - 100 ng/mL [facility] Comment: Deficient <10 ng/mL Insufficient 10 to 29 ng/mL Sufficient 30 to 100 ng/mL Potential Intoxication >100 ng/mL According to the [place] National Osteoporosis Foundation, Vitamin D concentrations >30 ng/mL are sufficient to protect bone health. ??The National Kidney Foundation has similarly stated that patients with Vitamin D concentrations <30ng/mL should be considered to be insufficient or deficient. http://[employer]ur[employer]/nkf-guidelines http://[employer]ur[employer]/nejm-VitD The ID[employer] iSYS Vitamin D Immunoassay detects both 25-OH Vitamin D2 and 25-OH Vitamin D3, but only a total Vitamin D concentration is reported. Blood specimen (specimen) 09/05/2017 11:29 AM EST 09/05/2017 1:31 PM EST Narrative Resulting Agency Comment Spec In Lab Fran Gilliam MD CHEMISTRY ORDERABL ES Performing Organization Address [facility] Co de Phone Number [facility] [place] [address] * (ABNORMAL) Electrolytes panel (09/05/2017 11:29 AM EST) Sodium 148(H) 135 - 145 mmol/L [facility] Potassium 4.1 3.5 - 5.0 mmol/L [facility] Comment: Please note: ??Patients with WBC >100,000 may have falsely elevated Potassium levels. ??For accurate Potassium quantification in these patients send serum separator tube (gold top) for subsequent determinations. ??Contact the Clinical Chemistry Laboratory if there are any questions. Chloride 113(H) 98 - 107 mmol/L [facility] Carbon Dioxide 24 22 - 31 mmol/L [facility] Anion Gap 11 5 - 15 mmol/L [facility] Blood specimen (specimen) 09/05/2017 11:29 AM EST 09/05/2017 11:48 AM EST Narrative Resulting Agency Comment Spec In Lab Juliet Medeiros APRN CHEMISTRY ORDERABLES Performing Organization Address [facility] Co de Phone Number [facility] [place] [address] * (ABNORMAL) Phosphorus (09/05/2017 4:16 AM EST) Phosphorus 1.1(Critic al) 2.5 - 4.5 mg/dL [facility] Comment:Called by: MOISES, Read back by: ADRIANE FINLEY, Date/Time:09/05/17 05:43. Blood specimen (specimen) 09/05/2017 4:16 AM EST 09/05/2017 4:52 AM EST Narrative Resulting Agency Comment Spec In Lab Juliet L Medeiros MAX CHEMISTRY ORDERABLES [facility] [place] [address] * (ABNORMAL) Differential, Automated (09/05/2017 2:35 AM EST) Neutrophil % 84.1 % [facility] Neutrophil Absolute 7.20(H) 1.70 - 6.10 x10(3)/mc L [facility] Lymph % 5.0 % [facility] Lymphocytes Abs 0.4(L) 0.9 - 3.2 x10(3)/mc L [facility] Monocyte % 9.4 % [facility] Monocyte Abs 0.8 0.3 - 0.9 x10(3)/mc L [facility] Eos % 0.3 % [facility] Eosinophils Abs 0.0 0.0 - 0.4 x10(3)/mc L [facility] Basophil % 0.2 % [facility] Baso Absolute 0.0 0.0 - 0.1 x10(3)/mc L [facility] Immature Gran % 1.00 % [facility] Comment: Immature granulocytes(IG's)percentage and absolute count will include metamyelocytes, myelocytes, and promyelocytes. Blood smears from CBCs yielding IG's will be scanned manually for concordance. If this scan disagrees with the automated IG or if promyelocytes are noted, a manual differential will be performed. Immature Gran Absolute 0.09(H) 0.00 - 0.04 x10(3)/ L [facility] Blood specimen (specimen) 09/05/2017 2:35 AM EST 09/05/2017 2:42 AM EST Narrative Resulting Agency Comment Spec In Lab Christopher Dalal MD HEMATOLOGY ORDERABLE S Performing Organization Address City/State/[facility] Co de Phone Number [facility] [place] [address] * (ABNORMAL) Hemogram (09/05/2017 2:35 AM EST) White Blood Cell 8.6 4.0 - 9.5 x10(3)/[facility] LABORATORY Red Blood Cell 3.98(L) 4.58 - 5.54 x10(6)/[facility] LABORATORY Hemoglobin 10.9(L) 13.7 - 16.5 gm/dL [facility] Hematocrit 31.5(L) 40.5 - 48.5 % [facility] Mean Cell Volume 79.1(L) 82.9 - 93.1 fL [facility] Mean Cell Hemoglobin 27.4(L) 27.5 - 32.1 pg [facility] Mean Cell Hemoglobin Concentration 34.6 32.0 - 35.7 gm/dL [facility] Platelet 169 145 - 357 x10(3)/[facility] LABORATORY RDW Standard Deviation 41.2 36.0 - 45.0 [facility] LABORATORY RDW coefficient of variation 14.2(H) 11.4 - 13.8 % [facility] Mean Platelet Volume 10.0 7.6 - 12.9 fL [facility] NRBC% auto 0.0 % [facility] NRBC Absolute 0.000 0.000 - 0.000 x10(3)/[facility] LABORATORY Blood specimen (specimen) 09/05/2017 2:35 AM EST 09/05/2017 2:42 AM EST Narrative Resulting Agency Comment Spec In Lab Christopher Dalal MD HEMATOLOGY ORDERABLE S [facility] [place] [address] * (ABNORMAL) Basic Metabolic Panel (non-fasting) (09/05/2017 2:35 AM EST) Glucose 203(H) 65 - 199 mg/dL [facility] Comment:Diabetes: >=200 mg/d L plus symptoms Blood Urea Nitrogen 8(L) 10 - 20 mg/dL [facility] Creatinine 0.85 0.80 - 1.50 mg/dL [facility] Sodium 148(H) 135 - 145 mmol/L [facility] Comment:result rechecked-imm Potassium 4.1 3.5 - 5.0 mmol/L [facility] Comment: Please note: ??Patients with WBC >100,000 may have falsely elevated Potassium levels. ??For accurate Potassium quantification in these patients send serum separator tube (gold top) for subsequent determinations. ??Contact the Clinical Chemistry Laboratory if there are any questions. Chloride 112(H) 98 - 107 mmol/L [facility] Comment:result rechecked-imm Carbon Dioxide 23 22 - 31 mmol/L [facility] Anion Gap 13 5 - 15 mmol/L [facility] Calcium 7.8(L) 8.5 - 10.5 mg/dL [facility] Est Glomerular Filtration Rate >60 >=60 [facility] Comment: The reported eGFR should be multiplied by 1.2 for patients. The MDRD is not an appropriate measure of renal function for patients with body mass extremes or in patients with acute kidney failure. http://Wurldtech/DHnkdep http://Wurldtech/DHMCnkf Blood specimen (specimen) 09/05/2017 2:35 AM EST 09/05/2017 2:42 AM EST Narrative Resulting Agency Comment Spec In Lab Fran Gilliam MD CHEMISTRY ORDERABL ES Performing Organization Address [facility] de Phone Number [facility] [place] [address] * Magnesium (09/05/2017 2:35 AM EST) Magnesium 0.80 0.69 - 1.07 mmol/L [facility] Blood specimen (specimen) 09/05/2017 2:35 AM EST 09/05/2017 2:42 AM EST Narrative Resulting Agency Comment Spec In Lab Juliet Medeiros APRN CHEMISTRY ORDERABLES Performing Organization Address [facility] Phone Number [facility] [place] [address] * EKG 12 Lead (09/04/2017 10:30 PM EST) Ventricular rate 143 BPM MUSE SYSTEM Atrial Rate 143 BPM MUSE SYSTEM P-R Interval 130 ms MUSE SYSTEM QRS Duration 78 ms MUSE SYSTEM Q-T Interval 278 ms MUSE SYSTEM QTC Calculated (Bezet) 429 ms MUSE SYSTEM Calculated P [place] 34 degrees MUSE SYSTEM Calculated R [place] 48 degrees MUSE SYSTEM Calculated T [place] 45 degrees MUSE SYSTEM INTERPRETATION Sinus tachycardia Nonspecific ST abnormality Abnormal ECG No previous ECGs available Confirmed by MD Scottie, Sally ([id number]) on 09/05/2017 3:49:31 PM MUSE SYSTEM 09/04/2017 10:3 0 PM EST 09/05/2017 3:49 PM EST Juliet Medeiros APRN ECG ORDERABLES Performing Organization Address [facility] Co de Phone Number MUSE SYSTEM * (ABNORMAL) Electrolytes panel (09/04/2017 7:23 PM EST) Sodium 137 135 - 145 mmol/L [facility] Potassium 5.1(H) 3.5 - 5.0 mmol/L [facility] Comment: Please note: ??Patients with WBC >100,000 may have falsely elevated Potassium levels. ??For accurate Potassium quantification in these patients send serum separator tube (gold top) for subsequent determinations. ??Contact the Clinical Chemistry Laboratory if there are any questions. Chloride 102 98 - 107 mmol/L [facility] Carbon Dioxide 23 22 - 31 mmol/L [facility] Anion Gap 12 5 - 15 mmol/L [facility] Blood specimen (specimen) 09/04/2017 7:23 PM EST 09/04/2017 7:27 PM EST Narrative Resulting Agency Comment Spec In Lab Fran Gilliam MD CHEMISTRY ORDERABL ES Performing Organization Address City/[facility]/ZIP Co de Phone Number [facility] [place] [address] * POCT Glucose (09/04/2017 7:00 PM EST) [facility] Glucose, POC 132 65 - 199 mg/dL [facility] Comment: Supplemental ranges: <140 mg/dL before meals <180 mg/dL all other times of the day Blood specimen (specimen) 09/04/2017 7:00 PM EST 09/04/2017 7:00 PM EST Fran Gilliam MD POINT OF CARE TEST ORDERABLES Performing Organization Address City/[facility]/ZIP Co de Phone Number [facility] [place] [address] * (ABNORMAL) Differential, Automated (09/04/2017 3:49 PM EST) [facility] Neutrophil % 86.3 % [facility] Neutrophil Absolute 7.08(H) 1.70 - 6.10 x10(3)/mc L [facility] Lymph % 5.2 % [facility] Lymphocytes Abs 0.4(L) 0.9 - 3.2 x10(3)/mc L [facility] Monocyte % 6.2 % [facility] Monocyte Abs 0.5 0.3 - 0.9 x10(3)/mc L [facility] Eos % 1.2 % [facility] Eosinophils Abs 0.1 0.0 - 0.4 x10(3)/[facility] LABORATORY Basophil % 0.1 % [facility] Baso Absolute 0.0 0.0 - 0.1 x10(3)/[facility] LABORATORY Immature Gran % 1.00 % [facility] Comment: Immature granulocytes(IG's)percentage and absolute count will include metamyelocytes, myelocytes, and promyelocytes. Blood smears from CBCs yielding IG's will be scanned manually for concordance. If this scan disagrees with the automated IG or if promyelocytes are noted, a manual differential will be performed. Immature Gran Absolute 0.08(H) 0.00 - 0.04 x10(3)/[facility] LABORATORY Blood specimen (specimen) 09/04/2017 3:49 PM EST 09/04/2017 3:59 PM EST Narrative Resulting Agency Comment Spec In Lab Dario Chavez MD HEMATOLOGY ORDERABLE S [facility] [place] [address] * (ABNORMAL) Hemogram (09/04/2017 3:49 PM EST) White Blood Cell 8.2 4.0 - 9.5 x10(3)/[facility] LABORATORY Red Blood Cell 4.05(L) 4.58 - 5.54 x10(6)/[facility] LABORATORY Hemoglobin 11.1(L) 13.7 - 16.5 gm/dL [facility] Hematocrit 33.0(L) 40.5 - 48.5 % [facility] Mean Cell Volume 81.5(L) 82.9 - 93.1 fL [facility] Mean Cell Hemoglobin 27.4(L) 27.5 - 32.1 pg [facility] Mean Cell Hemoglobin Concentration 33.6 32.0 - 35.7 gm/dL [facility] Platelet 118(L) 145 - 357 x10(3)/mc L [facility] RDW Standard Deviation 41.2 36.0 - 45.0 fL [facility] RDW coefficient of variation 14.0(H) 11.4 - 13.8 % [facility] Mean Platelet Volume 9.9 7.6 - 12.9 fL [facility] NRBC% auto 0.0 % [facility] NRBC Absolute 0.000 0.000 - 0.000 x10(3)/mc L [facility] Blood specimen (specimen) 09/04/2017 3:49 PM EST 09/04/2017 3:59 PM EST Narrative Resulting Agency Comment Spec In Lab Dario Chavez MD HEMATOLOGY ORDERABLE S Performing Organization Address [facility]/ZIP Co de Phone Number [facility] [place] [address] * (ABNORMAL) Electrolytes panel (09/04/2017 3:49 PM EST) Sodium 129(L) 135 - 145 mmol/L [facility] Potassium 4.4 3.5 - 5.0 mmol/L [facility] Comment: Please note: ??Patients with WBC >100,000 may have falsely elevated Potassium levels. ??For accurate Potassium quantification in these patients send serum separator tube (gold top) for subsequent determinations. ??Contact the Clinical Chemistry Laboratory if there are any questions. Chloride 97(L) 98 - 107 mmol/L [facility] Carbon Dioxide 22 22 - 31 mmol/L [facility] Anion Gap 10 5 - 15 mmol/L [facility] Blood specimen (specimen) 09/04/2017 3:49 PM EST 09/04/2017 3:59 PM EST Narrative Resulting Agency Comment Spec In Lab Fran Gilliam MD CHEMISTRY ORDERABL ES Performing Organization Address [facility]/ZIP Co de Phone Number [facility] [place] [address] * (ABNORMAL) Hemoglobin and Hematocrit, blood (09/04/2017 3:49 PM EST) Hemoglobin 11.0(L) 13.7 - 16.5 gm/dL [facility] Hematocrit 33.3(L) 40.5 - 48.5 % [facility] Blood specimen (specimen) 09/04/2017 3:49 PM EST 09/04/2017 3:59 PM EST Narrative Resulting Agency Comment Spec In Lab Fran Gilliam MD HEMATOLOGY ORDERAB LES [facility] [place] [address] * XR Pelvis Judet or In Out 3 views (09/04/2017 3:15 PM EST) Anatomical Region Laterality Modality Pelvis N/A Digital Radiogra phy Impressions 09/04/2017 4:05 PM EST Improved alignment after left ischial and acetabular fracture ORIF without evidence of complication. Narrative 09/04/2017 4:05 PM EST EXAMINATION: XR PELVIS JUDET OR IN OUT 3 VIEWS CLINICAL HISTORY: Status post open reduction and internal fixation of the left acetabulum TECHNIQUE: Anteroposterior and Judet views of the pelvis were obtained COMPARISON: Pelvic imaging studies dated 09/02/2017 and 09/03/2017 FINDINGS: There was interval open reduction and internal fixation of the previously described left ischial and acetabular fracture with multiple [id number] constructs. Tubing that could represent a surgical drain is seen with its tip projecting over the left iliac region. Additional tubing is faintly seen projecting over the midline pelvis. Fracture alignment is improved and appears near-anatomic. The sacrum is largely obscured by overlying bowel gas and stool. Procedure Note Zulema Marroquin MD - 09/04/2017 EXAMINATION: XR PELVIS JUDET OR IN OUT 3 VIEWS CLINICAL HISTORY: Status post open reduction and internal fixation of theleft acetabulum TECHNIQUE: Anteroposterior and Judet views of the pelvis were obtained COMPARISON: Pelvic imaging studies dated 09/02/2017 and 09/03/2017 FINDINGS: There was interval open reduction and internal fixation of thepreviously described left ischial and acetabular fracture with [id number] constructs. Tubing that could represent a surgical drain is seen with itstip projecting over the left iliac region. Additional tubing is faintly seen projecting over the midline pelvis. Fracture alignment is improved andappears near-anatomic. The sacrum is largely obscured by overlying bowel gas andstool. IMPRESSION Improved alignment after left ischial and acetabular fracture ORIFwithout evidence of complication. Fran Gilliam MD IMVan DX ORDERABLES * XR Fluoro No Rad <1Hr - OR Use (09/04/2017 12:27 PM EST) Narrative RAD - 09/04/2017 12:27 PM EST This order does not need a radiologist interpretation. ?? Fran ABEL FLUORO ORDERAB LES [place], [place] * ABORH Recheck Status (09/04/2017 11:15 AM EST) ABORH Type Recheck Completed [facility] Blood specimen (specimen) 09/04/2017 11:15 AM EST 09/04/2017 11:28 AM EST Narrative Resulting Agency Comment Spec In Lab Amy Lance MD BLOOD BANK LAB ORDER LYNDSEY [facility] [place] [address] * Antibody screen (09/04/2017 11:15 AM EST) Ab Screen Interp Negative [facility] Expires at [id number] on: 09/07/2017 [facility] Blood specimen (specimen) 09/04/2017 11:15 AM EST 09/04/2017 11:28 AM EST Narrative Resulting Agency Comment Spec In Lab Amy Lance MD BLOOD BANK LAB ORDER LYNDSEY [facility] [place] [address] * ABO/Rh Typing (09/04/2017 11:15 AM EST) ABORH Type O Pos [facility] Blood specimen (specimen) 09/04/2017 11:15 AM EST 09/04/2017 11:28 AM EST Narrative Resulting Agency Comment Spec In Lab Amy Lance MD BLOOD BANK LAB ORDER LYNDSEY Performing Organization Address City/[facility] Co de Phone Number [facility] [place] [address] * (ABNORMAL) Differential, Automated (09/04/2017 11:15 AM EST) Pathologist [facility] Neutrophil % 72.7 % [facility] Neutrophil Absolute 10.24(H) 1.70 - 6.10 x10(3)/mc L [facility] Lymph % 11.3 % [facility] Lymphocytes Abs 1.6 0.9 - 3.2 x10(3)/mc L [facility] Monocyte % 7.5 % [facility] Monocyte Abs 1.1(H) 0.3 - 0.9 x10(3)/mc L [facility] Eos % 7.5 % [facility] Eosinophils Abs 1.1(H) 0.0 - 0.4 x10(3)/mc L [facility] Basophil % 0.3 % [facility] Baso Absolute 0.0 0.0 - 0.1 x10(3)/mc L [facility] Immature Gran % 0.70 % [facility] Comment: Immature granulocytes(IG's)percentage and absolute count will include metamyelocytes, myelocytes, and promyelocytes. Blood smears from CBCs yielding IG's will be scanned manually for concordance. If this scan disagrees with the automated IG or if promyelocytes are noted, a manual differential will be performed. Immature Gran Absolute 0.10(H) 0.00 - 0.04 x10(3)/mc L [facility] Blood specimen (specimen) 09/04/2017 11:15 AM EST 09/04/2017 11:28 AM EST Narrative Resulting Agency Comment Spec In Lab Amy Lance MD HEMATOLOGY ORDERABLE S [facility] [place] [address] * (ABNORMAL) Hemogram (09/04/2017 11:15 AM EST) White Blood Cell 14.1(H) 4.0 - 9.5 x10(3)/mc L [facility] Red Blood Cell 3.37(L) 4.58 - 5.54 x10(6)/mc L [facility] Hemoglobin 9.3(L) 13.7 - 16.5 gm/dL [facility] Comment: This result has been called to SHEKHAR OLIVEIRA by Crista Hunter on 09 04 2017 at 1137, and has been read back. Hematocrit 26.7(L) 40.5 - 48.5 % [facility] Comment: This result has been called to SHEKHAR OLIVEIRA by Crista Hunter on 09 04 2017 at 1137, and has been read back. Mean Cell Volume 79.2(L) 82.9 - 93.1 fL [facility] Mean Cell Hemoglobin 27.6 27.5 - 32.1 pg [facility] Mean Cell Hemoglobin Concentration 34.8 32.0 - 35.7 gm/dL [facility] Platelet 193 145 - 357 x10(3)/mc L [facility] RDW Standard Deviation 41.5 36.0 - 45.0 fL [facility] RDW coefficient of variation 14.3(H) 11.4 - 13.8 % [facility] Mean Platelet Volume 10.0 7.6 - 12.9 fL [facility] NRBC% auto 0.0 % [facility] NRBC Absolute 0.000 0.000 - 0.000 x10(3)/mc L [facility] Blood specimen (specimen) 09/04/2017 11:15 AM EST 09/04/2017 11:28 AM EST Narrative Resulting Agency Comment Spec In Lab Amy Lance MD HEMATOLOGY ORDERABLE S Performing Organization Address [facility]/ZIP Co de Phone Number [facility] [place] [address] * Prepare RBC (09/04/2017 11:00 AM EST) Pathologist [facility] Dispensed? Yes [facility] Blood specimen (specimen) 09/04/2017 11:00 AM EST 09/04/2017 10:58 AM EST Fran Gilliam MD BLOOD BANK PRODUCT ORDERABLES Performing Organization Address [facility]/ZIP Co de Phone Number [facility] [place] [address] * (ABNORMAL) Differential, Automated (09/04/2017 3:58 AM EST) Neutrophil % 75.8 % [facility] Neutrophil Absolute 8.00(H) 1.70 - 6.10 x10(3)/mc L [facility] Lymph % 9.5 % [facility] Lymphocytes Abs 1.0 0.9 - 3.2 x10(3)/mc L [facility] Monocyte % 7.7 % [facility] Monocyte Abs 0.8 0.3 - 0.9 x10(3)/mc L [facility] Eos % 5.9 % [facility] Eosinophils Abs 0.6(H) 0.0 - 0.4 x10(3)/[facility] LABORAT[facility] Basophil % 0.4 % [facility] Baso Absolute 0.0 0.0 - 0.1 x10(3)/[facility] LAB[facility] Immature Gran % 0.70 % [facility] Comment: Immature granulocytes(IG's)percentage and absolute count will include metamyelocytes, myelocytes, and promyelocytes. Blood smears from CBCs yielding IG's will be scanned manually for concordance. If this scan disagrees with the automated IG or if promyelocytes are noted, a manual differential will be performed. Immature Gran Absolute 0.07(H) 0.00 - 0.04 x10(3)/[facility] [place] [facility] Blood specimen (specimen) 09/04/2017 3:58 AM EST 09/04/2017 4:05 AM EST Narrative Resulting Agency Comment Spec In Lab Christopher Dalal MD HEMATOLOGY ORDERABLE S Performing Organization Address City/State/[facility] Co de Phone Number [facility] [place] [address] * (ABNORMAL) Hemogram (09/04/2017 3:58 AM EST) White Blood Cell 10.5(H) 4.0 - 9.5 x10(3)/[facility] LABORATORY Red Blood Cell 4.72 4.58 - 5.54 x10(6)/[facility] LABORATORY Hemoglobin 12.4(L) 13.7 - 16.5 gm/dL [facility] Hematocrit 37.2(L) 40.5 - 48.5 % [facility] Mean Cell Volume 78.8(L) 82.9 - 93.1 fL [facility] Mean Cell Hemoglobin 26.3(L) 27.5 - 32.1 pg [facility] Mean Cell Hemoglobin Concentration 33.3 32.0 - 35.7 gm/dL [facility] Platelet 142(L) 145 - 357 x10(3)/mc L [facility] RDW Standard Deviation 39.5 36.0 - 45.0 fL [facility] RDW coefficient of variation 13.8 11.4 - 13.8 % [facility] Mean Platelet Volume 9.9 7.6 - 12.9 fL [facility] NRBC% auto 0.0 % [facility] NRBC Absolute 0.000 0.000 - 0.000 x10(3)/mc L [facility] Blood specimen (specimen) 09/04/2017 3:58 AM EST 09/04/2017 4:05 AM EST Narrative Resulting Agency Comment Spec In Lab Christopher Dalal MD HEMATOLOGY ORDERABLE S [facility] [place] [address] * (ABNORMAL) Basic Metabolic Panel (non-fasting) (09/04/2017 3:58 AM EST) Glucose 118 65 - 199 mg/dL [facility] Comment:Diabetes: >=200 mg/d L plus symptoms Blood Urea Nitrogen 12 10 - 20 mg/dL [facility] Creatinine 0.73(L) 0.80 - 1.50 mg/dL [facility] Sodium 128(L) 135 - 145 mmol/L [facility] Potassium 4.1 3.5 - 5.0 mmol/L [facility] Comment: Please note: ??Patients with WBC >100,000 may have falsely elevated Potassium levels. ??For accurate Potassium quantification in these patients send serum separator tube (gold top) for subsequent determinations. ??Contact the Clinical Chemistry Laboratory if there are any questions. Chloride 95(L) 98 - 107 mmol/L [facility] Carbon Dioxide 22 22 - 31 mmol/L [facility] Anion Gap 11 5 - 15 mmol/L [facility] Calcium 8.0(L) 8.5 - 10.5 mg/dL [facility] Est Glomerular Filtration Rate >60 >=60 [facility] Comment: The reported eGFR should be multiplied by 1.2 for patients. The MDRD is not an appropriate measure of renal function for patients with body mass extremes or in patients with acute kidney failure. http://Vidient.Fashinating/DHnkdep http://Wurldtech/DHMCnkf Blood specimen (specimen) 09/04/2017 3:58 AM EST 09/04/2017 4:05 AM EST Narrative Resulting Agency Comment Spec In Lab Fran Gilliam MD CHEMISTRY ORDERABL ES Performing Organization Address [facility] Co de Phone Number [facility] [place] [address] * (ABNORMAL) Hepatic Function Panel (09/04/2017 3:58 AM EST) Protein, Total 5.9(L) 6.1 - 8.0 gm/dL [facility] Albumin 3.3 3.2 - 5.2 gm/dL [facility] Aspartate Aminotransferase 23 0 - 39 unit/L [facility] Alanine Aminotransferase 31 0 - 55 unit/L [facility] Alkaline Phosphatase 75 40 - 120 unit/L [facility] Bilirubin, Total 0.5 0.2 - 1.3 mg/dL [facility] Bilirubin, Direct 0.1 0.0 - 0.3 mg/dL [facility] Blood specimen (specimen) 09/04/2017 3:58 AM EST 09/04/2017 4:05 AM EST Narrative Resulting Agency Comment Spec In Lab Fran Gilliam MD CHEMISTRY ORDERABL ES Performing Organization Address [facility] Co de Phone Number [facility] [place] [address] * (ABNORMAL) Testosterone, total and free (09/04/2017 3:58 AM EST) Testo Total 84(L) 250 - 1100 ng/dL [facility] Comment: For more information on this test, go to http://education.Altimet/faq/ TotalTestosteroneLCMSMS This test was developed and its analytical performance characteristics have been determined by [employer] [place], [place]. It has not been cleared or approved by the U.S. Food and Drug Administration. This assay has been validated pursuant to the CLIA regulations and is used for clinical purposes. Testo Free (NOVEMBER) 11.4(L) 35.0 - 155.0 pg/mL [facility] Comment: This test was developed and its analytical performance characteristics have been determined by [employer]. It has not been cleared or approved by the U.S. Food and Drug Administration. This assay has been validated pursuant to the CLIA regulations and is used for clinical purposes. Test Performed by [facility], [employer] [place], [address] [place] [address] Hilton Mckoen M.D., Ph.D., Director of Laboratories , CLIA [id number] Blood specimen (specimen) 09/04/2017 3:58 AM EST 09/04/2017 9:36 AM EST Narrative Resulting Agency Comment Spec In Lab Christopher Dalal MD LAB SEND OUT ORDERAB LES [facility] [place] [address] * SCAN DOC: IMPLANTABLE DEVICES (09/04/2017 12:00 AM EST) Narrative 09/04/2017 12:00 AM EST Ordered by an unspecified provider. Scanning Provider MEDIA MGR SCAN EXT O RDR/RSLT * SCAN DOC: BURN NURSE (09/04/2017 12:00 AM EST) Anatomical Region Laterality Modality Other Narrative 09/04/2017 12:00 AM EST Ordered by an unspecified provider. Scanning Provider MEDIA MGR SCAN EXT O RDR/RSLT * (ABNORMAL) Urinalysis with reflex Culture (09/03/2017 9:04 PM EST) Glucose, Urine Dipstick Negative Negative mg/dL [facility] Protein, Urine Dipstick Negative Negative mg/dL [facility] Bilirubin, Urine Dipstick Negative Negative mg/dL [facility] Comment: Clinical correlation required for positive Urine Bilirubin results as false positive may occur with some drugs and drug related products. If a false positive is suspected a serum total bilirubin should be considered if clinically indicated. Urobilinogen, Urine Dipstick >=4.0(A) Normal mg/dL [facility] pH, Urn (dipstick) 7.0 5.0 - 8.0 [facility] Blood, Urine Dipstick Negative Negative mg/dL [facility] Ketone, Urine Dipstick Negative Negative mg/dL [facility] Nitrite, Urine Dipstick Negative Negative [facility] Leukocytes, Urine Dipstick Negative Negative [facility] LAB[facility] Appearance, Urine Dipstick Clear Clear [facility] Specific [place] Urine Automated 1.020 1.002 - 1.030 [facility] Color, Urine Dipstick Yellow Yellow [facility] Reflex to Culture No [facility] Urine specimen obtained via indwelling urinary catheter (specimen) 09/03/2017 9:04 PM EST 09/03/2017 9:19 PM EST Narrative Resulting Agency Comment Spec In Lab Fran Gilliam MD URINE ORDERABLES [facility] [place] [address] * Rapid Influenza A/B PCR (09/03/2017 7:59 PM EST) Influenza A PCR Not Detected Not Detected [facility] Influenza B PCR Not Detected Not Detected [facility] Resp PCR Source [employer] Swab [facility] Nasopharyngeal swab (specimen) 09/03/2017 7:59 PM EST 09/03/2017 8:12 PM EST Narrative Resulting Agency Comment Spec In Lab Fran Gilliam MD MICROBIOLOGY - GEN ERAL ORDERABLES Performing Organization Address [facility] Co de Phone Number [facility] [place] [address] * Blood culture (09/03/2017 6:47 PM EST) Blood Culture No growth at 5 days. [facility] Blood specimen (specimen) 09/03/2017 6:47 PM EST 09/03/2017 7:08 PM EST Comment:R HAND Narrative Resulting Agency Comment Spec In Lab Fran Gilliam MD MICROBIOLOGY - BLO OD ORDERABLES Performing Organization Address [facility] Co de Phone Number [facility] [place] [address] * (ABNORMAL) Lactate, whole blood, send to lab (Leb/CGP) (09/03/2017 5:56 PM EST) Lactate WB 3.7(H) 0.5 - 2.2 mmol/L [facility] Blood specimen (specimen) 09/03/2017 5:56 PM EST 09/03/2017 6:03 PM EST Narrative Resulting Agency Comment Spec In Lab Fran Gilliam MD CHEMISTRY ORDERABL ES Performing Organization Address [facility] Co de Phone Number [facility] [place] [address] * Blood culture (09/03/2017 5:56 PM EST) Blood Culture No growth at 5 days. [facility] Blood specimen (specimen) 09/03/2017 5:56 PM EST 09/03/2017 6:28 PM EST Narrative Resulting Agency Comment Spec In Lab Fran Gilliam MD MICROBIOLOGY - BLO OD ORDERABLES [facility] [place] [address] * CT Pelvis MSK (Bones Joints Muscles)WO Contrast (09/03/2017 4:52 PM EST) Anatomical Region Laterality Modality Pelvis Computed Tomogra phy Impressions 09/03/2017 5:51 PM EST 1. ??Comminuted left acetabular fracture involving the medial wall with posttraumatic protrusio deformity. 2. ??The flat contour of the left femoral head is consistent with fracture. I do not however see displaced fracture typical the shear injury is seen in the setting. It is possible this base of the represent a compression of the femoral surface. 3. ??Pelvic hematoma. Preliminary report signed by: Jimbo Casillas at 09/03/2017 5:16 PM I have personally reviewed the image(s) and the residents interpretation and agree with the findings, Galen Cervantes at 09/03/2017 5:51 PM Narrative 09/03/2017 5:51 PM EST EXAMINATION: CT PELVIS MSK (BONES JOINTS MUSCLES) WO CONTRAST CLINICAL HISTORY: assess fx, please do 3D recon TECHNIQUE: CT of the pelvis without intravenous contrast. 3-D reformats were generated on an independent workstation. COMPARISON: Radiographs of the pelvis 09/02/2017. CT of the abdomen and pelvis 09/02/2012. FINDINGS: Left acetabulum is fractured. The medial wall is comminuted and centrally displaced resulting in a traumatic protrusio deformity. Posteriorly the fracture extends to the margin of the ischial spine but does not extend across the entire posterior column. Similarly, anteriorly the fracture does not extend across the entire anterior column. There is a nondisplaced fracture extending across the roof of the acetabulum. The flattened contour of the superior lateral femoral head implies a shear fracture of the femoral head. I do not however see a displaced intra-articular fracture fragment. Despite the presence of a markedly displaced fracture fracture there is minimal displacement of the femoral head. Deep to the fracture, hematoma displaces the urinary bladder. Urinary catheter is present within the bladder. No additional fractures are seen elsewhere in the pelvis. Procedure Note Galen Cervantes MD - 09/03/2017 EXAMINATION: CT PELVIS MSK (BONES JOINTS MUSCLES) WO CONTRAST CLINICAL HISTORY: assess fx, please do 3D recon TECHNIQUE: CT of the pelvis without intravenous contrast. 3-D reformats weregenerated on an independent workstation. COMPARISON: Radiographs of the pelvis 09/02/2017. CT of the abdomen and pelvis 09/02/2012. FINDINGS: Left acetabulum is fractured. The medial wall is comminuted and centrally displaced resulting in atraumatic protrusio deformity. Posteriorly the fracture extends to the margin of the ischial spine butdoes not extend across the entire posterior column. Similarly, anteriorly the fracture does not extend across the entireanterior column. There is a nondisplaced fracture extending across the roof of theacetabulum. The flattened contour of the superior lateral femoral head implies ashear fracture of the femoral head. I do not however see a displacedintra-articular fracture fragment. Despite the presence of a markedly displaced fracture fracture there isminimal displacement of the femoral head. Deep to the fracture, hematoma displaces the urinary bladder. Urinarycatheter is present within the bladder. No additional fractures are seen elsewhere in the pelvis. IMPRESSION 1. Comminuted left acetabular fracture involving the medial wall with posttraumatic protrusio deformity. 2. The flat contour of the left femoral head is consistent with fracture.I do not however see displaced fracture typical the shear injury is seen inthe setting. It is possible this base of the represent a compression of thefemoral surface. 3. Pelvic hematoma. Preliminary report signed by: Jimbo Casillas at 09/03/2017 5:16 PM I have personally reviewed the image(s) and the residents interpretationand agree with the findings, Galen Cervantes at 09/03/2017 5:51 PM Fran Gilliam MD IM CT ORDERABLES * (ABNORMAL) Zonisamide level (09/03/2017 10:20 AM EST) Zonisamide Lvl (NOVEMBER) 3.7(L) 10 - 40 mcg/mL [facility] Comment: ADDITIONAL INFORMATION This test was developed and its performance characteristics determined by [facility] in a manner consistent with CLIA requirements. This test has not been cleared or approved by the U.S. Food and Drug Administration. Test Performed by: [facility] - [facility] [address] [place] [address] Blood specimen (specimen) 09/03/2017 10:20 AM EST 09/03/2017 12:26 PM EST Narrative Resulting Agency Comment Spec In Lab Fran Gilliam MD LAB SEND OUT ORDER LYNDSEY [facility] [place] [address] * XR Chest PA or AP 1 view (09/03/2017 9:27 AM EST) Anatomical Region Laterality Modality Chest N/A Digital Radiogra phy Impressions 09/03/2017 10:31 AM EST No acute cardiopulmonary pathology identified. I have personally reviewed the image(s) and the residents interpretation and agree with the findings, Gretel Ojeda at 09/03/2017 10:31 AM Narrative 09/03/2017 10:31 AM EST EXAMINATION: XR CHEST PA OR AP 1 VIEW CLINICAL HISTORY: hypoxia TECHNIQUE: Portable AP chest radiograph COMPARISON: Chest radiograph dated 09/02/2017 FINDINGS: Persistent decreased lung volumes with bronchovascular crowding. No supine findings for pneumothorax or pleural effusion. Cardiomediastinal silhouette and pulmonary vascular markings appear within normal limits. The lungs are otherwise clear. No acute osseous abnormalities. Procedure Note Gretel Ojeda MD - 09/03/2017 EXAMINATION: XR CHEST PA OR AP 1 VIEW CLINICAL HISTORY: hypoxia TECHNIQUE: Portable AP chest radiograph COMPARISON: Chest radiograph dated 09/02/2017 FINDINGS: Persistent decreased lung volumes with bronchovascular crowding.No supine findings for pneumothorax or pleural effusion. Cardiomediastinal silhouette and pulmonary vascular markings appear within normal limits.The lungs are otherwise clear. No acute osseous abnormalities. IMPRESSION No acute cardiopulmonary pathology identified. I have personally reviewed the image(s) and the residents interpretationand agree with the findings, Gretel Ojeda at 09/03/2017 10:31 AM Fran Gilliam MD IMG DX ORDERABLES * T4, free (09/03/2017 6:22 AM EST) Free T4 1.45 0.93 - 1.70 ng/dL [facility] Blood specimen (specimen) Venous Draw / Unknown 09/03/2017 6:22 AM EST 09/03/2017 6:35 AM EST Narrative Resulting Agency Comment Spec In Lab Fran Gilliam MD CHEMISTRY ORDERABL ES Performing Organization Address [facility]/ZIP Co de Phone Number [facility] [place] [address] * (ABNORMAL) TSH (09/03/2017 6:22 AM EST) Thyroid Stimulating Hormone 0.01(L) 0.27 - 4.20 mlU/ML [facility] Blood specimen (specimen) Venous Draw / Unknown 09/03/2017 6:22 AM EST 09/03/2017 6:35 AM EST Narrative Resulting Agency Comment Spec In Lab Fran Gilliam MD CHEMISTRY ORDERABL ES [facility] [place] [address] * Basic Metabolic Panel (non-fasting) (09/03/2017 6:22 AM EST) Glucose 95 65 - 199 mg/dL [facility] Comment:Diabetes: >=200 mg/d L plus symptoms Blood Urea Nitrogen 10 10 - 20 mg/dL [facility] Creatinine 0.99 0.80 - 1.50 mg/dL [facility] Sodium 136 135 - 145 mmol/L [facility] Potassium 4.2 3.5 - 5.0 mmol/L [facility] Comment: Please note: ??Patients with WBC >100,000 may have falsely elevated Potassium levels. ??For accurate Potassium quantification in these patients send serum separator tube (gold top) for subsequent determinations. ??Contact the Clinical Chemistry Laboratory if there are any questions. Chloride 99 98 - 107 mmol/L [facility] Carbon Dioxide 26 22 - 31 mmol/L [facility] Anion Gap 11 5 - 15 mmol/L [facility] Calcium 8.8 8.5 - 10.5 mg/dL [facility] Est Glomerular Filtration Rate >60 >=60 [facility] Comment: The reported eGFR should be multiplied by 1.2 for patients. The MDRD is not an appropriate measure of renal function for patients with body mass extremes or in patients with acute kidney failure. http://Vidient.Fashinating/DHnkdep http://Wurldtech/DHMCnkf Blood specimen (specimen) 09/03/2017 6:22 AM EST 09/03/2017 6:29 AM EST Narrative Resulting Agency Comment Spec In Lab Christopher Dalal MD CHEMISTRY ORDERABLES Performing Organization Address City/State/[facility] Co de Phone Number [facility] [place] [address] * (ABNORMAL) Basic Metabolic Panel (non-fasting) (09/03/2017 1:54 AM EST) Glucose 90 65 - 199 mg/dL [facility] Comment:Diabetes: >=200 mg/d L plus symptoms Blood Urea Nitrogen 10 10 - 20 mg/dL [facility] Creatinine 1.01 0.80 - 1.50 mg/dL [facility] Sodium 139 135 - 145 mmol/L [facility] Potassium 3.7 3.5 - 5.0 mmol/L [facility] Comment: Please note: ??Patients with WBC >100,000 may have falsely elevated Potassium levels. ??For accurate Potassium quantification in these patients send serum separator tube (gold top) for subsequent determinations. ??Contact the Clinical Chemistry Laboratory if there are any questions. Chloride 102 98 - 107 mmol/L [facility] Carbon Dioxide 25 22 - 31 mmol/L [facility] Anion Gap 12 5 - 15 mmol/L [facility] Calcium 8.1(L) 8.5 - 10.5 mg/dL [facility] Est Glomerular Filtration Rate >60 >=60 [facility] Comment: The reported eGFR should be multiplied by 1.2 for patients. The MDRD is not an appropriate measure of renal function for patients with body mass extremes or in patients with acute kidney failure. http://Vidient.Fashinating/DHnkdep http://Wurldtech/DHMCnkf Blood specimen (specimen) 09/03/2017 1:54 AM EST 09/03/2017 2:02 AM EST Narrative Resulting Agency Comment Spec In Lab Christopher Dalal MD CHEMISTRY ORDERABLES Performing Organization Address City/[facility]/ZIP Co de Phone Number [facility] [place] [address] * ABORH Recheck Status (09/03/2017 12:54 AM EST) ABORH Recheck Order Order Placed [facility] ABORH Type Recheck Complete [facility] Blood specimen (specimen) 09/03/2017 12:54 AM EST 09/03/2017 12:54 AM EST Narrative Resulting Agency Comment Spec In Lab Christopher Dalal MD BLOOD BANK LAB ORDER LYNDSEY Performing Organization Address City/[facility]/ZIP Co de Phone Number [facility] [place] [address] * (ABNORMAL) Differential, Automated (09/03/2017 12:54 AM EST) Neutrophil % 72.4 % [facility] Neutrophil Absolute 6.59(H) 1.70 - 6.10 x10(3)/[facility] LABORAT[facility] Lymph % 11.7 % [facility] Lymphocytes Abs 1.1 0.9 - 3.2 x10(3)/[facility] LAB[facility] Monocyte % 8.9 % [facility] Monocyte Abs 0.8 0.3 - 0.9 x10(3)/[facility] Eos % 5.3 % [facility] Eosinophils Abs 0.5(H) 0.0 - 0.4 x10(3)/[facility] Basophil % 0.6 % [facility] Baso Absolute 0.0 0.0 - 0.1 x10(3)/[facility] Immature Gran % 1.10 % [facility] Comment: Immature granulocytes(IG's)percentage and absolute count will include metamyelocytes, myelocytes, and promyelocytes. Blood smears from CBCs yielding IG's will be scanned manually for concordance. If this scan disagrees with the automated IG or if promyelocytes are noted, a manual differential will be performed. Immature Gran Absolute 0.10(H) 0.00 - 0.04 x10(3)/[facility] Blood specimen (specimen) 09/03/2017 12:54 AM EST 09/03/2017 12:58 AM EST Narrative Resulting Agency Comment Spec In Lab Christopher Dalal MD HEMATOLOGY ORDERABLE S [facility] [place] [address] * (ABNORMAL) Hemogram (09/03/2017 12:54 AM EST) White Blood Cell 9.1 4.0 - 9.5 x10(3)/[facility] Red Blood Cell 5.52 4.58 - 5.54 x10(6)/mc L [facility] Hemoglobin 14.8 13.7 - 16.5 gm/dL [facility] Hematocrit 43.4 40.5 - 48.5 % [facility] Mean Cell Volume 78.6(L) 82.9 - 93.1 fL [facility] Mean Cell Hemoglobin 26.8(L) 27.5 - 32.1 pg [facility] Mean Cell Hemoglobin Concentration 34.1 32.0 - 35.7 gm/dL [facility] Platelet 156 145 - 357 x10(3)/mc L [facility] RDW Standard Deviation 41.1 36.0 - 45.0 [facility] LABORATORY RDW coefficient of variation 14.8(H) 11.4 - 13.8 % [facility] Mean Platelet Volume 11.6 7.6 - 12.9 [facility] LAB[facility]ORY NRBC% auto 0.0 % [facility] NRBC Absolute 0.000 0.000 - 0.000 x10(3)/mc L [facility] Blood specimen (specimen) 09/03/2017 12:54 AM EST 09/03/2017 12:58 AM EST Narrative Resulting Agency Comment Spec In Lab Christopher Dalal MD HEMATOLOGY ORDERABLE S Performing Organization Address City/State/[facility] Co de Phone Number [facility] [place] [address] * Antibody screen (09/03/2017 12:54 AM EST) Ab Screen Interp Negative [facility] Expires at [id number] on: 09/06/2017 [facility] Blood specimen (specimen) 09/03/2017 12:54 AM EST 09/03/2017 12:54 AM EST Narrative Resulting Agency Comment Spec In Lab Christopher Dalal MD BLOOD BANK LAB ORDER LYNDSEY Performing Organization Address City/[facility]/ZIP Co de Phone Number [facility] [place] [address] * ABO/Rh Typing (09/03/2017 12:54 AM EST) ABORH Type O Pos [facility] Blood specimen (specimen) 09/03/2017 12:54 AM EST 09/03/2017 12:54 AM EST Narrative Resulting Agency Comment Spec In Lab Christopher Dalal MD BLOOD BANK LAB ORDER LYNDSEY Performing Organization Address [facility] Co de Phone Number [facility] [place] [address] * APTT (09/03/2017 12:54 AM EST) Partial Thromboplastin Time 26 25 - 35 sec [facility] Comment: The recommended therapeutic range for full dose, unfractionated heparin at [facility] is 80 ? 114 seconds. The use of the anti-Xa (heparin) level rather than the PTT is recommended for monitoring anticoagulation intensity in critically ill patients receiving unfractionated heparin by continuous IV infusion. Blood specimen (specimen) 09/03/2017 12:54 AM EST 09/03/2017 12:58 AM EST Narrative Resulting Agency Comment Spec In Lab Christopher Dalal MD HEMATOLOGY ORDERABLE S Performing Organization Address [facility] Co de Phone Number [facility] [place] [address] * Prothrombin Time (09/03/2017 12:54 AM EST) Prothrombin Time 13.6 11.8 - 14.0 sec [facility] International Normalization Ratio 1.1 0.9 - 1.1 [facility] Comment: An INR <2.0 indicates adequate procoagulant activity for hemostasis in most patients without underlying bleeding disorders, though the INR may not adequately reflect hemostatic capacity in patients with liver disease and synthetic impairment. The recommended target INR range for therapeutic anticoagulation is 2.0 ? 3.0 for most applications, though lower and higher ranges may be appropriate depending on clinical circumstances. Blood specimen (specimen) 09/03/2017 12:54 AM EST 09/03/2017 12:58 AM EST Narrative Resulting Agency Comment Spec In Lab Christopher Dalal MD HEMATOLOGY ORDERABLE S [facility] [place] [address] * Basic Metabolic Panel (non-fasting) (09/03/2017 12:54 AM EST) Glucose 84 65 - 199 mg/dL [facility] Comment:Diabetes: >=200 mg/d L plus symptoms Blood Urea Nitrogen 11 10 - 20 mg/dL [facility] Creatinine 0.97 0.80 - 1.50 mg/dL [facility] Sodium Not Perf 135 - 145 mmol/L [facility] Comment: Specimen hemolyzed. Called by: [facility], Read back by: Diana Reese, Date/Time:09/03/17 01:32. Potassium Not Perf 3.5 - 5.0 mmol/L [facility] Comment: Specimen hemolyzed. Called by: [facility], Read back by: Diana Reese, Date/Time:09/03/17 01:32. Please note: ??Patients with WBC >100,000 may have falsely elevated Potassium levels. ??For accurate Potassium quantification in these patients send serum separator tube (gold top) for subsequent determinations. ??Contact the Clinical Chemistry Laboratory if there are any questions. Chloride Not Perf 98 - 107 mmol/L [facility] Comment: Specimen hemolyzed. Called by: [facility], Read back by: Diana Reese, Date/Time:09/03/17 01:32. Carbon Dioxide Not Perf 22 - 31 mmol/L [facility] Comment: Specimen hemolyzed. Called by: [facility], Read back by: Diana Reese, Date/Time:09/03/17 01:32. Anion Gap Not Perf 5 - 15 mmol/L [facility] Comment: Specimen hemolyzed. Called by: [facility], Read back by: Diana Reese, Date/Time:09/03/17 01:32. Calcium Not Perf 8.5 - 10.5 [facility] Comment: Specimen hemolyzed. Called by: [facility], Read back by: Diana Reese, Date/Time:09/03/17 01:32. Est Glomerular Filtration Rate >60 >=60 [facility] Comment: The reported eGFR should be multiplied by 1.2 for patients. The MDRD is not an appropriate measure of renal function for patients with body mass extremes or in patients with acute kidney failure. http://[employer]/DHnkdep http://[employer]/DHnkf Blood specimen (specimen) 09/03/2017 12:54 AM EST 09/03/2017 12:58 AM EST Narrative Resulting Agency Comment Spec In Lab Christopher Dalal MD CHEMISTRY ORDERABLES [facility] [place] [address] * XR Knee 1-2 Views Left (Generic) (09/02/2017 11:46 PM EST) Anatomical Region Laterality Modality Knee Left Digital Radiogra phy Impressions 09/03/2017 12:11 AM EST FINDINGS/IMPRESSION: Traction device is present. Narrative 09/03/2017 12:11 AM EST EXAMINATION: XR KNEE 1-2 VIEWS LEFT (GENERIC) CLINICAL HISTORY: S/P traction pin in left distal femur, now in 25lbs traction TECHNIQUE: Frontal deep COMPARISON: September 02, 2017 Procedure Note Tobias Sotomayor MD - 09/03/2017 EXAMINATION: XR KNEE 1-2 VIEWS LEFT (GENERIC) CLINICAL HISTORY: S/P traction pin in left distal femur, now in 25lbstraction TECHNIQUE: Frontal deep COMPARISON: September 02, 2017 IMPRESSION FINDINGS/IMPRESSION: Traction device is present. Beverley Bojorquez MD [facility] DX ORDERABLES * XR Pelvis Judet or In Out 3 views (09/02/2017 11:46 PM EST) Anatomical Region Laterality Modality Pelvis N/A Digital Radiogra phy Impressions 09/03/2017 12:15 AM EST FINDINGS/IMPRESSION: Redemonstrated LEFT acetabular fracture extending into the ischium with acetabular protrusio, without appreciable change in alignment. Narrative 09/03/2017 12:15 AM EST EXAMINATION: XR PELVIS JUDET OR IN OUT 3 VIEWS CLINICAL HISTORY: Left acetabular fx, now in 25lbs skeletal traction TECHNIQUE: 3 views COMPARISON: September 02, 2017 Procedure Note Tobias Sotomayor MD - 09/03/2017 EXAMINATION: XR PELVIS JUDET OR IN OUT 3 VIEWS CLINICAL HISTORY: Left acetabular fx, now in 25lbs skeletal traction TECHNIQUE: 3 views COMPARISON: September 02, 2017 IMPRESSION FINDINGS/IMPRESSION: Redemonstrated LEFT acetabular fracture extending into the ischium with acetabular protrusio, without appreciable change in alignment. Beverley Bojorquez MD [facility] DX ORDERABLES * XR Knee 1-2 Views Left (Generic) (09/02/2017 11:09 PM EST) Anatomical Region Laterality Modality Knee Left Digital Radiogra phy Impressions 09/02/2017 11:18 PM EST FINDINGS/IMPRESSION: Traction pin traverses the distal femur. Narrative 09/02/2017 11:18 PM EST EXAMINATION: XR KNEE 1-2 VIEWS LEFT (GENERIC) CLINICAL HISTORY: single lateral view to assess trxn pin TECHNIQUE: Frontal and lateral COMPARISON: September 02, 2017 Procedure Note Tobias Sotomayor MD - 09/02/2017 EXAMINATION: XR KNEE 1-2 VIEWS LEFT (GENERIC) CLINICAL HISTORY: single lateral view to assess trxn pin TECHNIQUE: Frontal and lateral COMPARISON: September 02, 2017 IMPRESSION FINDINGS/IMPRESSION: Traction pin traverses the distal femur. Beverley Bojorquez MD IMG DX ORDERABLES documented in this encounter Visit Diagnoses Not on filedocumented in this encounter Admitting Diagnoses Diagnosis Acetabular fracture Closed fracture of acetabulum documented in this encounter Administered Medications Inactive Administered Medications - up to 3 most recent administrations Medication Order MAR Action Action Date Dose Rate Site acetaminophen (TYLENOL) tablet 650 mg 650 mg, Oral, 3 TIMES DAILY, First dose (after last modification) on [place] 11/30/17 at 1500, Until Discontinued, Maximum dose of acetaminophen is 4000 mg from all sources in 24 hours., Routine Given 03/12/2018 1:00 PM EDT 650 mg Given 03/12/2018 8:03 AM EDT 650 mg Given 03/11/2018 8:31 PM EDT 650 mg aspirin chewable tablet 81 mg 81 mg, Oral, DAILY, First dose (after last modification) on [place] 03/01/18 at 1545, Until Discontinued, Routine Given 03/12/2018 8:04 AM EDT 81 mg Given 03/11/2018 9:04 AM EDT 81 mg Given 03/10/2018 9:37 AM EDT 81 mg atorvastatin (LIPITOR) tablet 40 mg 40 mg, Oral, EVERY EVENING, First dose on 03/01/18 at 1700, Until Discontinued, Routine Given 03/11/2018 5:23 PM EDT 40 mg Given 03/10/2018 5:35 PM EDT 40 mg Given 03/09/2018 5:51 PM EDT 40 mg bisacodyl (DULCOLAX) suppository 10 mg 10 mg, Rectal, DAILY PRN, Starting on 09/22/17 at 0904, Until [place] 03/12/18 at 1526, Constipation, Use if senna-docusate or miralax ineffective, or per patient request., Routine Given 10/21/2017 6:4 0 PM EDT 10 mg Given 10/05/2017 12:18 PM EDT 10 mg Given 09/29/2017 4:51 PM EDT 10 mg calcium carbonate (TUMS) chewable tablet 500 mg 500 mg, Oral, NIGHTLY, First dose (after last modification) on Fri11/17/17 at 2100, Until Discontinued, Routine Given 03/11/2018 8:34 PM EDT 500 mg Given 03/10/2018 8:38 PM EDT 500 mg Given 03/09/2018 8:27 PM EDT 500 mg cholecalciferol (Vitamin D3) tablet 1,000 Units 1,000 Units, Oral, DAILY, First dose on Fri09/10/17 at 1230, Until Discontinued, Routine Given 03/12/2018 8:04 AM EDT 1,000 Units Given 03/11/2018 9:04 AM EDT 1,000 Units Given 03/10/2018 9:37 AM EDT 1,000 Units desmopressin (DDAVP) tablet 0.1 mg 0.1 mg, Oral, EVERY MORNING, First dose (after last modification) on Fri01/28/18 at 0900, Until Discontinued, Routine Given 03/12/2018 8:04 AM EDT 0.1 mg Given 03/11/2018 9:03 AM EDT 0.1 mg Given 03/10/2018 9:37 AM EDT 0.1 mg desmopressin (DDAVP) tablet 0.15 mg 0.15 mg, Oral, NIGHTLY, First dose (after last modification) on Fri01/28/18 at 2100, Until Discontinued, Routine Given 03/11/2018 8:28 PM EDT 0.15 mg Given 03/10/2018 8:51 PM EDT 0.15 mg Given 03/09/2018 8:24 PM EDT 0.15 mg hydrocortisone (CORTEF) tablet 10 mg 10 mg, Oral, DAILY AT NOON, First dose (after last modification) on Fri11/16/17 at 1400, Until Discontinued, Routine Given 03/12/2018 12:34 PM EDT 10 mg Given 03/11/2018 11:11 AM EDT 10 mg Given 03/10/2018 1:13 PM EDT 10 mg hydrocortisone (CORTEF) tablet 20 mg 20 mg, Oral, EVERY MORNING, First dose on Fri09/07/17 at 0700, Until Discontinued, Routine Given 03/12/2018 6:27 AM EDT 20 mg Given 03/11/2018 6:11 AM EDT 20 mg Given 03/10/2018 6:47 AM EDT 20 mg ibuprofen (ADVIL;MOTRIN) tablet 400 mg 400 mg, Oral, EVERY 6 HOURS PRN, Starting on 12/21/17 at 0843, Until Jo [place] 03/12/18 at 1526, Pain, Administer orally with milk or food to minimize GI irritation. Maximum dose of 3200 mg from all sources in 24 hours, Routine Given 03/12/2018 9:12 AM EDT 400 mg Given 03/09/2018 11:51 PM EDT 400 mg Given 03/08/2018 1:15 AM EDT 400 mg levothyroxine (SYNTHROID) tablet 225 mcg 225 mcg, Oral, EVERY MORNING, First dose (after last modification) on Fri01/13/18 at 0600, Until Discontinued, Routine Given 03/12/2018 6:20 AM EDT 225 mcg Given 03/11/2018 6:11 AM EDT 225 mcg Given 03/10/2018 6:46 AM EDT 225 mcg melatonin tablet 9 mg 9 mg, Oral, NIGHTLY, First dose (after last modification) on 11/30/17 at 2000, Until Discontinued, Routine Given 03/11/2018 8:27 PM EDT 9 mg Given 03/10/2018 8:39 PM EDT 9 mg Given 03/09/2018 8:26 PM EDT 9 mg methyl salicylate-menthol (BENGAY) 15-10 % cream Topical (Top), 2 TIMES DAILY, First dose on 09/14/17 at 1200, Until Discontinued Given 03/12/2018 8:05 AM EDT Given 03/11/2018 9:15 AM EDT Given 03/10/2018 9:43 AM EDT metoprolol succinate (TOPROL-XL) XL tablet 75 mg 75 mg, Oral, DAILY, First dose (after last modification) on 03/02/18 at 0900, Until Discontinued, DO NOT CRUSH OR OPEN, Routine Given 03/12/2018 8:03 AM EDT 75 mg Given 03/11/2018 9:04 AM EDT 75 mg Given 03/10/2018 9:36 AM EDT 75 mg pantoprazole (PROTONIX) tablet 40 mg 40 mg, Oral, EVERY MORNING BEFORE BREAKFAST, First dose on Fri09/03/17 at 0730, Until Discontinued, DO NOT CRUSH OR OPEN Given 03/12/2018 8:04 AM EDT 40 mg Given 03/11/2018 9:04 AM EDT 40 mg Given 03/10/2018 6:47 AM EDT 40 mg polyethylene glycol (MIRALAX) packet 17 g 17 g, Oral, DAILY PRN, Starting on Fri11/12/17 at 1037, Until [place] 03/12/18 at 1526, Constipation, If not bowel movement in last 24 hours., Routine Given 02/16/2018 9:22 PM EDT 17 g Given 02/15/2018 2:38 PM EDT 17 g Given 02/03/2018 9:05 AM EDT 17 g QUEtiapine (SEROquel) tablet 250 mg 250 mg, Oral, NIGHTLY, First dose (after last modification) on Fri11/30/17 at 2000, Until Discontinued, Routine Given 03/11/2018 8:25 PM EDT 250 mg Given 03/10/2018 8:48 PM EDT 250 mg Given 03/09/2018 8:25 PM EDT 250 mg QUEtiapine (SEROquel) tablet 50 mg 50 mg, Oral, 2 TIMES DAILY PRN, Starting on 11/29/17 at 1040, Until [place] 03/12/18 at 1526, Agitation, Routine Given 03/12/2018 12:35 PM EDT 50 mg Given 03/12/2018 10:15 AM EDT 50 mg Given 03/11/2018 8:35 PM EDT 50 mg senna-docusate (PERICOLACE) 8.6-50 mg per tablet 2 tablet 2 tablet, Oral, 2 TIMES DAILY, First dose (after last modification) on Fri11/12/17 at 2100, Until Discontinued, Hold for loose stools please! Thanks!, Routine Given 03/12/2018 8:03 AM EDT 2 tablets Given 03/11/2018 8:27 PM EDT 2 tablets Given 03/11/2018 9:03 AM EDT 2 tablets simethicone (MYLICON) chewable tablet 40 mg 40 mg, Oral, EVERY 6 HOURS PRN, Starting on [place] 10/23/17 at 1934, Until [place] 03/12/18 at 1526, Cramping, Routine Given 03/08/2018 1:14 AM EDT 40 mg Given 12/20/2017 8:12 PM EDT 40 mg Given 11/25/2017 8:55 AM EDT 40 mg testosterone (ANDROGEL) 1 % (25 mg/2.5 g) gel 5 g 5 g, Transdermal, NIGHTLY, First dose on Fri10/15/17 at 2100, Until Discontinued, Apply to shoulders, upper arms or abdomen., Routine Given 03/11/2018 8:25 PM EDT 5 g Given 03/10/2018 8:43 PM EDT 5 g Given 03/09/2018 8:27 PM EDT 5 g traZODone (DESYREL) tablet 50 mg 50 mg, Oral, NIGHTLY, First dose (after last modification) on Fri12/09/17 at 2000, Until Discontinued, Routine Given 03/11/2018 8:30 PM EDT 50 mg Given 03/10/2018 8:48 PM EDT 50 mg Given 03/09/2018 8:27 PM EDT 50 mg zonisamide (ZONEGRAN) capsule 200 mg 200 mg, Oral, NIGHTLY, First dose (after last modification) on Fri09/03/17 at 2100, Until Discontinued, Routine Given 03/11/2018 5:23 PM EDT 200 mg Given 03/10/2018 5:35 PM EDT 200 mg Given 03/09/2018 5:51 PM EDT 200 mg documented in this encounter Active and Recently Administered Medications Times are shown in EDT. Scheduled Medication Order 03/10/2018 03/11/2018 03/12/2018 acetaminophen (TYLENOL) tablet 650 mg 650 mg, Oral, 3 TIMES DAILY, First dose (after last modification) on Fri11/30/17 at 1500, Until Discontinued, Maximum dose of acetaminophen is 4000 mg from all sources in 24 hours., Routine 0937 (Given - Provider: Vandana Jean Baptiste RN)1313 (Given - Provider: Vandana Jean Baptiste RN)2050 (Given - Provider: Latrice Hoff RN) 0904 (Given - Provider: Vandana Jean Baptiste RN)1324 (Given - Provider: Vandana Jean Baptiste RN)203 (Given - Provider: Latrice Hoff RN) 0803 (Given - Provider: Mady Recio RN)1300 (Given - Provider: Mady Recio RN) aspirin chewable tablet 81 mg 81 mg, Oral, DAILY, First dose (after last modification) on Fri03/01/18 at 1545, Until Discontinued, Routine 0937 (Given - Provider: Vandana Jean Baptiste RN) 0904 (Given - Provider: Vandana Jean Baptiste RN) 0804 (Given - Provider: Mady Recio RN) atorvastatin (LIPITOR) tablet 40 mg 40 mg, Oral, EVERY EVENING, First dose on Fri03/01/18 at 1700, Until Discontinued, Routine 173 (Given - Provider: Vandana Jean Baptiste RN) 1723 (Given - Provider: Vandana Jean Baptiste RN) calcium carbonate (TUMS) chewable tablet 500 mg 500 mg, Oral, NIGHTLY, First dose (after last modification) on Fri11/17/17 at 2100, Until Discontinued, Routine 2037 (Given - Provider: Latrice Hoff RN) 2033 (Given - Provider: Latrice Hoff RN) cholecalciferol (Vitamin D3) tablet 1,000 Units 1,000 Units, Oral, DAILY, First dose on Fri09/10/17 at 1230, Until Discontinued, Routine 0937 (Given - Provider: Vandana Jean Baptiste RN) 0904 (Given - Provider: Vandana Jean Baptiste RN) 0804 (Given - Provider: Mady Recio RN) desmopressin (DDAVP) tablet 0.1 mg 0.1 mg, Oral, EVERY MORNING, First dose (after last modification) on Fri01/28/18 at 0900, Until Discontinued, Routine 0937 (Given - Provider: Vandana Jean Baptiste RN) 0903 (Given - Provider: Vandana Jean Baptiste RN) 0804 (Given - Provider: Mady Recio RN) desmopressin (DDAVP) tablet 0.15 mg 0.15 mg, Oral, NIGHTLY, First dose (after last modification) on Fri01/28/18 at 2100, Until Discontinued, Routine 2050 (Given - Provider: Latrice Hoff RN) 2027 (Given - Provider: Latrice Hoff RN) hydrocortisone (CORTEF) tablet 10 mg 10 mg, Oral, DAILY AT NOON, First dose (after last modification) on 11/16/17 at 1400, Until Discontinued, Routine 1313 (Given - Provider: Vandana Jean Baptiste RN) 1111 (Given - Provider: Vandana Jean Baptiste RN) 1234 (Given - Provider: Mady Recio, HEATHER) hydrocortisone (CORTEF) tablet 20 mg 20 mg, Oral, EVERY MORNING, First dose on 09/07/17 at 0700, Until Discontinued, Routine 0647 (Given - Provider: Mady Foss RN) 0611 (Given - Provider: Latrice Hoff RN) 0627 (Given - Provider: Latrice Hoff RN) levothyroxine (SYNTHROID) tablet 225 mcg 225 mcg, Oral, EVERY MORNING, First dose (after last modification) on Fri01/13/18 at 0600, Until Discontinued, Routine 0646 (Given - Provider: Mady Foss RN) 0611 (Given - Provider: Latrice Hoff RN) 06 (Given - Provider: Latrice Hoff RN) melatonin tablet 9 mg 9 mg, Oral, NIGHTLY, First dose (after last modification) on 11/30/17 at 2000, Until Discontinued, Routine 2038 (Given - Provider: Latrice Hoff RN) 2026 (Given - Provider: Latrice Hoff RN) methyl salicylate-menthol (BENGAY) 15-10 % cream Topical (Top), 2 TIMES DAILY, First dose on 09/14/17 at 1200, Until Discontinued 942 (Given - Provider: Vandana Jean Baptiste RN)2054 (Not Given - Provider: Latrice Hoff RN - Reason: Patient/family refused) 914 (Given - Provider: Vandana Jean Baptiste RN)2042 (Not Given - Provider: Latrice Hoff RN - Reason: Patient/family refused) 08 (Given - Provider: Mady Recio RN) metoprolol succinate (TOPROL-XL) XL tablet 75 mg 75 mg, Oral, DAILY, First dose (after last modification) on Fri03/02/18 at 0900, Until Discontinued, DO NOT CRUSH OR OPEN, Routine 0936 (Given - Provider: Vandana Jean Baptiste RN) 0904 (Given - Provider: Vandana Jean Baptiste RN) 0803 (Given - Provider: Mady Recio RN) pantoprazole (PROTONIX) tablet 40 mg 40 mg, Oral, EVERY MORNING BEFORE BREAKFAST, First dose on Fri09/03/17 at 0730, Until Discontinued, DO NOT CRUSH OR OPEN 0647 (Given - Provider: Mady Foss RN) 0904 (Given - Provider: Vandana Jean Baptiste RN) 0804 (Given - Provider: Mady Recio RN) QUEtiapine (SEROquel) tablet 250 mg 250 mg, Oral, NIGHTLY, First dose (after last modification) on Fri11/30/17 at 2000, Until Discontinued, Routine 2047 (Given - Provider: Latrice Hoff RN) 2024 (Given - Provider: Latrice Hoff RN) senna-docusate (PERICOLACE) 8.6-50 mg per tablet 2 tablet 2 tablet, Oral, 2 TIMES DAILY, First dose (after last modification) on Fri11/12/17 at 2100, Until Discontinued, Hold for loose stools please! Thanks!, Routine 936 (Given - Provider: Vandana Jean Baptiste RN)2050 (Given - Provider: Latrice Hoff RN) 09 (Given - Provider: Vandana Jean Baptiste RN)2026 (Given - Provider: Latrice Hoff RN) 0803 (Given - Provider: Mady Recio, HEATHER) testosterone (ANDROGEL) 1 % (25 mg/2.5 g) gel 5 g 5 g, Transdermal, NIGHTLY, First dose on Fri10/15/17 at 2100, Until Discontinued, Apply to shoulders, upper arms or abdomen., Routine 2042 (Given - Provider: Latrice Hoff RN) 2024 (Given - Provider: Latrice Hoff RN) traZODone (DESYREL) tablet 50 mg 50 mg, Oral, NIGHTLY, First dose (after last modification) on Fri12/09/17 at 2000, Until Discontinued, Routine 2047 (Given - Provider: Latrice Hoff RN) 2029 (Given - Provider: Latrice Hoff RN) zonisamide (ZONEGRAN) capsule 200 mg 200 mg, Oral, NIGHTLY, First dose (after last modification) on Fri09/03/17 at 2100, Until Discontinued, Routine 1735 (Given - Provider: Vandana Jean Baptiste RN) 1723 (Given - Provider: Vandana Jean Baptiste RN) PRN Medication Order 03/10/2018 03/11/2018 03/12/2018 bisacodyl (DULCOLAX) suppository 10 mg 10 mg, Rectal, DAILY PRN, Starting on 09/22/17 at 0904, Until [place] 03/12/18 at 1526, Constipation, Use if senna-docusate or miralax ineffective, or per patient request., Routine ibuprofen (ADVIL;MOTRIN) tablet 400 mg 400 mg, Oral, EVERY 6 HOURS PRN, Starting on 12/21/17 at 0843, Until [place] 03/12/18 at 1526, Pain, Administer orally with milk or food to minimize GI irritation. Maximum dose of 3200 mg from all sources in 24 hours, Routine 09 (Given - Provider: Mady Recio RN) naphazoline-pheniramin e (NAPHCON-A) 0.025-0.3 % ophthalmic solution 1 drop 1 drop, Both Eyes, 3 TIMES DAILY PRN, Starting on Fri09/03/17 at 0203, Until [place] 03/12/18 at 1526, Irritation, Routine polyethylene glycol (MIRALAX) packet 17 g 17 g, Oral, DAILY PRN, Starting on Fri11/12/17 at 1037, Until [place] 03/12/18 at 1526, Constipation, If not bowel movement in last 24 hours., Routine QUEtiapine (SEROquel) tablet 50 mg 50 mg, Oral, 2 TIMES DAILY PRN, Starting on 11/29/17 at 1040, Until [place] 03/12/18 at 1526, Agitation, Routine 1446 (Given - Provider: Vandana Jean Baptiste RN)2235 (Given - Provider: Latrice Hoff, HEATHER) 1241 (Given - Provider: Vandana Jean Baptiste RN)2035 (Given - Provider: Latrice Hoff, RN) 1015 (Given - Provider: Mady Recio RN)1235 (Given - Provider: Mady Recio RN - Comment: per [facility] communication) simethicone (MYLICON) chewable tablet 40 mg 40 mg, Oral, EVERY 6 HOURS PRN, Starting on [place] 10/23/17 at 1934, Until [place] 03/12/18 at 1526, Cramping, Routine documented in this encounter Care Teams Phlebotomy Technician Relationship Specialty Start Date End Date Lc Venegas PA [address] [place] [address] PCP - General General Internal Medicine 09/03/17 documented as of this encounter
--- OUTSIDE RECORDS SUMMARY | 2024-06-28 14:07 | XMS_ITS | Encounter Summary ---
Author Organization [facility] Address [facility] [place] [address] Care Team Providers Care Mucking Machine Operator Name Role Phone Corin Skinner MD Primary Care Provider [phone] Encounter Details Date Type Department Care Team (Latest Contact Info) Description 09/02/2017 12:10 AM EST - 09/02/2017 12:14 AM [facility] Hospital Encounter Radiology Library at [facility] [place] [address] Neo Gar MD Discharge Disposition: Home Social History Tobacco Use [...] 25 g onto the skin daily. 03/12/2018 desmopressin (DDAVP) 0.1 mg Tablet Take 0.05 [...] Take 40 mg by mouth daily. 03/11/2018 documented as of this encounter Plan of Treatment Upcoming Encounters Date Type Department Care Team (Late st Contact Info) Description 07/20/2024 1:30 PM EST Office [place] [phone] Eron Barriga MD [facility] [place] [address] documented as of this encounter Procedures Procedure Name Priority Date/Time Associated Diagnosis Comments FILM LIBRARY STORAGE ONLY CT HEAD Routine 09/02/2017 12:10 AM EST documented in this encounter Results * Film Library- Storage Only CT Head (09/02/2017 12:10 AM EST) Narrative RAD - 09/02/2017 6:29 PM EST This exam is for storage only and is auto-finalizing. Neo Gar MD IMG FILM LIBRARY OR DERABLES [place], [place] documented in this encounter Visit Diagnoses Not on filedocumented in this encounter Care Teams Mucking Machine Operator Relationship Specialty Start Date End Date Corin Skinner MD PCP - General 05/29/10 09/02/17 documented as of this encounter
--- OUTSIDE RECORDS SUMMARY | 2024-06-28 14:07 | XMS_ITS | Encounter Summary ---
Author Organization [facility] Address [facility] [place] [address] Care Team Providers Care Press Service Reader Name Role Phone Corin Skinner MD Primary Care Provider [phone] Encounter Details Date Type Department Care Team (Latest Contact Info) Description 09/02/2017 12:15 AM EST - 09/02/2017 12:19 AM [facility] Hospital Encounter Radiology Library at [facility] [place] [address] Neo Gar MD Discharge Disposition: Home Social [...] 1:30 PM EST [place] [phone] Eron Barriga MD [facility] [place] [place] [address] documented as of this encounter Procedures Procedure Name Priority Date/Time Associated Diagnosis Comments FILM LIBRARY STORAGE ONLY DX KNEE Routine 09/02/2017 12:15 AM EST documented in this encounter Results * Film Library- Storage Only DX Knee (09/02/2017 12:15 AM EST) Narrative RAD - 09/02/2017 6:29 PM EST This exam is for storage only and is auto-finalizing. Neo Gar MD IMG FILM LIBRARY OR DERABLES [place], [place] documented in this encounter Visit Diagnoses Not on filedocumented in this encounter Care Teams Press Service Reader Relationship Specialty Start Date End Date Corin Skinner MD PCP - General 05/29/10 09/02/17 documented as of this encounter
--- OUTSIDE RECORDS SUMMARY | 2024-06-28 14:07 | XMS_ITS | Encounter Summary ---
Author Organization [facility] [place] [address] Care Team Providers Care Manager Contracting Name Role Phone Lc Venegas Primary Care Provider [phone] Reason for Visit * Auth/Cert Specialty Diagnoses / Procedures Referred By Contac t Referred To Contact Diagnoses Acetabular fracture Left acetabulum fracture Procedures @OPEN TREATMENT, ACETABULAR FX (WRVU 25.41) Referral ID Status Reason Start Date Expiration Date Visits Re quested Visits Authorized [id number] 1 1 Encounter Details Date Type Department Care Team (Late st Contact Info) Description 09/04/2017 9:22 AM EST Anesthesia Event [place] [phone] Delfino Chavez MD [facility] [place] [address] Irving Loja MD Anesthesia Record Procedure Summary Procedure Name Responsible [...] unit PRBC. 1111 Quick Note Patient name br acelet does not have blood lock code on [...] without issue. VSS. Full report given to SECURITY SOLUTIONS ARCHITECT. Meds Name Total fentaNYL 100 mcg IV [...] 1500; median vein (underside of arm), right; rzav-fpd-avwekw catheter system; 20 gauge; OSH MERCHANDISE EXECUTIVE; 09/09/17; 1999 (pt pulled out. MD aware.) 09/02/17 1500 by Crista Baptiste, NRP 09/09/171999 by Lori Corbin RN Urethral Catheter 09/02/17; 1500; indwelling single lumen catheter; 14; present on admission to this facility; drainage bag to dependent drainage; 09/10/17; 0000 09/02/17 1500 by Crista Baptiste, NRP 09/10/17 0000 by Lori Corbin RN ETT Mask Ventilation: Adjunct (2); ETT Type: Cuffed, Oral; ETT Size: 7.5 mm; Mac Blade: 3; Notes: Asleep, Pre-O2, Cricoid Pressure, Stylette; Attempts: 1; Laryngoscopy Grade: 1; ETT Placement Verified By: Auscultation, Capnometry, Visual; Secured at Teeth: 22 cm; Inserted by: Cele Fabian CRNA; Removal Date: 09/04/17; Removal Time: 1257 09/04/17 0931 by Cele Carrington OIL LEASE BUYER 09/04/17 1257 by Delfino Chavez MD (RETIRED) Peripheral IV Line - Single Lumen 09/04/17; 0940; metacarpal vein (top of hand), left; ykfh-vte-cvrzvj catheter system; 16 gauge; MD Scott; 0; Removed by patient; 09/04/17; 2200 09/04/17 0940 by Cele Carrington, TRISTA 09/04/17 2200 by [place] Malin RN Arterial Line 09/04/17; 0950; radi al artery, right; 20 gauge; Cele Fabian CRNA; Sterile Prep, Sterile Gloves; 09/04/17; 1428 09/04/17 0950 by Cele Carrington, OIL LEASE BUYER 09/04/17 1428 by Germaine Jaimes RN Incision [...] Chavez MD - 09/04/2017 2:08 PM EST [facility] Department of Anesthesiology Post-procedure Note Patient: Miguel Angel Burgos Procedure Summary Date Anesthesia Start Anesthesia Stop Room / Location 09/04/17 0922 1309 [facility] Procedure Diagnosis Surgeon Responsible Provider @OPEN TREATMENT, ACETABULAR FX (WRVU 25.41) (Left Pelvis); MODIFIER SMALL FRAGMENT SYNTHES (N/A ); MODIFIER PELVIC RECONSTRUCTION PLATE SYNTHES (N/A ); MODIFIER LARGE FRAGMENT SYSTEM SYNTHES (N/A ) (Left acetabulum fracture) Amy Lance MD Spence, Brian C, MD All Anesthesia Providers: Anesthesiologist: Delfino Chavez MD OIL LEASE BUYER: Cele Fabian CRNA Most Recent Vitals: 09/04/17 1345 BP: 122/69 Pulse: (!) 106 Resp: 18 Temp: SpO2: 100% Pain Patient Location: PACU/[facility] Level of Consciousness: Awake and Alert Pain [...] Anesth hx: None on record Labs: 09/04/17 09/03/17357 0054 WBC 10.5* 9.1 HGB 12.4* 14.8 HCT 37.2* 43.4 PLATELET 142* 156 09/04/17 09/03/17 09/03/17357 0622 0154 NA 128* 136 139 K 4.1 4.2 3.7 CL 95* 99 102 CO2 22 26 25 BUN 12 10 10 CREATININE 0.73* 0.99 1.01 09/04/17357 AST 23 ALT 31 ALKPHOS 75 BILITOT 0.5 BILIDIR 0.1 09/03/17 0054 PT 13.6 INR 1.1 PTT 26 Patient's sister is his legal guardian. Plan for GA with ETT; standard ASA monitoring. Region - Other Informed Consent: Anesthetic plan and risks discussed with legal guardian. Plan discussed with OIL LEASE BUYER. PAT Staff Note documented in this encounter Plan of Treatment Upcoming Encounters Date Type Department Care Team (Late st Contact Info) Description 07/20/2024 1:30 PM EST Office [place] [address] Eron Barriga MD [facility] [place] [address] documented as of this encounter Visit Diagnoses Not on filedocumented in this encounter Administered Medications Inactive Administered Medications - up to 3 most recent administrations Medication Order MAR Action Action Date Dose Rate Site ceFAZolin (ANCEF) 1g in dextrose 5% 50mL PRN, Starting on Jo Ann 09/04/17 at 0948, Until Jo Ann 09/04/17 at 1311, Administer over 30 Minutes, Anesthesia [...] Ann 09/04/17 at 0940, Until Jo Ann 3 at 1311, Anesthesia Intra-op New Bag 09/04/2017 [...] Jo Ann 09/04/17 at 1311, Anesthesia Intra-op Given 09/04/2017 9:29 [...] 0948, Until Jo Ann 09/04/17 at 1311, Anesthesia [...] documented in this encounter Care Teams Manager Contracting Relationship Specialty Start Date End Date Lc Venegas PA [address] [place] [address] PCP - General General Internal Medicine 09/03/17 documented as of this encounter
--- OUTSIDE RECORDS SUMMARY | 2024-06-28 14:07 | XMS_ITS | Encounter Summary ---
Author Organization [facility] [place] [address] Care Team Providers Care Bandmill Operator Name Role Phone Lc Venegas Primary Care Provider [phone] Reason for Visit * Auth/Cert Specialty Diagnoses / Procedures Referred By Contac t Referred To Contact Diagnoses Acetabular fracture Left acetabulum fracture Procedures @OPEN TREATMENT, ACETABULAR FX (WRVU 25.41) Referral ID Status Reason Start Date Expiration Date Visits Re quested Visits Authorized [id number] 1 1 Encounter Details Date Type Department Care Team (Late st Contact Info) Description 10/20/2017 11:43 AM [place] [address] Asia Mota MD [facility] [place] [address] Marvin Vasquez CRNA Anesthesia Record Procedure Summary [...] 0939; metacarpal vein (top of hand), left; aegv-uqj-tmfvsx catheter system; 20 gauge; distraction, intradermal injection, [...] Mota MD - 10/21/2017 7:39 AM EDT [facility] Department of Anesthesiology Post-procedure Note Patient: Miguel Angel Burgos Procedure Summary Date Anesthesia Start Anesthesia Stop Room / Location 10/20/17 1143 1203 [facility] ADULT RADIOLOGY / [facility] Procedure Diagnosis Surgeon Responsible Provider CT (N/A ) (Broken tooth) RESOURCE, ANESTHESIA-Asia Santiago MD All Anesthesia Providers: Anesthesiologist: Asia Moat MD FLOWER MAKER: Echo Lema CRNA Most Recent Vitals: 10/20/17 2112 BP: (!) 122/106 Pulse: Resp: Temp: SpO2: [...] History: Procedure Laterality Date ??? PRO OPEN ORACLE SOFTWARE ENGINEER FIX ACETABULAR FX Left 09/04/2017 @OPEN TREATMENT, ACETABULAR FX (WRVU 25.41) performed by Amy Lance MD at [facility] MAIN OR Social History Substance Use Topics [...] full Cardiovascular Assessment: Pulmonary Assessment: Dental Assessment: Misc Assessment: IV access: Peripheral line Anesthesia Plan: ASA 2 MAC, with a(n) intravenous induction 27 year old male with a PMH significant for CVA, severe developmental disability (combative currently), panhypopituitarism, and seizures for CT scan to evaluate possible fractured tooth. Telephone consent obtained from his sister kenneth HARRIS No problems with anesthesia in the past. Plan: MAC Region - Other Informed Consent: Anesthetic plan and risks discussed with legal guardian. Plan discussed with FLOWER MAKER. PAT Staff Note documented in this encounter Miscellaneous Notes * Addendum Note - Asia Mota MD - 10/21/2017 7:40 AM EDT Addendum created 10/21/17 0740 by Asia Mota MD Sign clinical note documented in this encounter Plan of Treatment Upcoming Encounters Date Type Department Care Team (Late st Contact Info) Description 07/20/2024 1:30 PM EST Office [place] [address] Eron Barriga MD [facility] [place] [address] documented as of this encounter Visit Diagnoses [...] /hr documented in this encounter Care Teams Bandmill Operator Relationship Specialty Start Date End Date Lc Venegas PA [address] [place] [address] PCP - General General Internal Medicine 09/03/17 documented as of this encounter
--- OUTSIDE RECORDS SUMMARY | 2024-06-28 14:07 | XMS_ITS | Encounter Summary ---
Author Organization [facility] Address [facility] [place] [address] Care Team Providers Care Tobacco Farmworker Name Role Phone Corin Skinner MD Primary Care Provider [phone] Encounter Details Date Type Department Care Team (Latest Contact Info) Description 09/02/2017 12:05 AM EST - 09/02/2017 12:09 AM [facility] Hospital Encounter Radiology Library at [facility] [place] [address] Neo Gar MD Discharge Disposition: Home Social [...] 1:30 PM EST [place] [phone] Eron Barriga MD [facility] [place] [address] documented as of this encounter Procedures Procedure Name Priority Date/Time Associated Diagnosis Comments FILM LIBRARY STORAGE ONLY DX PELVIS Routine 09/02/2017 12:05 AM EST documented in this encounter Results * Film Library- Storage Only DX Pelvis (09/02/2017 12:05 AM EST) Narrative RAD - 09/02/2017 6:28 PM EST This exam is for storage only and is auto-finalizing. Neo Gar MD IMG FILM LIBRARY OR DERABLES [place], [place] documented in this encounter Visit Diagnoses Not on filedocumented in this encounter Care Teams Tobacco Farmworker Relationship Specialty Start Date End Date Corin Skinner MD PCP - General 05/29/10 09/02/17 documented as of this encounter
--- OUTSIDE RECORDS SUMMARY | 2024-06-28 14:07 | XMS_ITS | Encounter Summary ---
Author Organization [facility] Address [facility] [place] [address] Care Team Providers Care Integrated Circuits Inspector Name Role Phone Corin Skinner MD Primary Care Provider [phone] Encounter Details Date Type Department Care Team (Latest Contact Info) Description 09/02/2017 12:20 AM EST - 09/02/2017 9:22 PM [facility] Encounter Radiology Library at [facility] [place] [address] Neo Gar MD Discharge Disposition: Home Social [...] 1:30 PM EST Office [place] [phone] Eron Barriga MD [facility] [place] [address] documented as of this encounter Procedures Procedure Name Priority Date/Time Associated Diagnosis Comments FILM LIBRARY STORAGE ONLY DX CHEST Routine 09/02/2017 12:20 AM EST documented in this encounter Results * Film Library- Storage Only DX Chest (09/02/2017 12:20 AM EST) Narrative RAD - 09/02/2017 6:30 PM EST This exam is for storage only and is auto-finalizing. Neo Gar MD IMG FILM LIBRARY OR DERABLES [place], [place] documented in this encounter Visit Diagnoses Not on filedocumented in this encounter Care Teams Integrated Circuits Inspector Relationship Specialty Start Date End Date Corin Skinner MD PCP - General 05/29/10 09/02/17 documented as of this encounter
--- OUTSIDE RECORDS SUMMARY | 2024-06-28 14:07 | XMS_ITS | Encounter Summary ---
Author Organization [facility] [place] [address] Care Team Providers Care Apparatus Engineering Technologist Name Role Phone Lc Venegas Primary Care Provider [phone] Encounter Details Date Type Department Care Team (Late st Contact Info) Description 09/03/2017 Orders [place] [phone] Tobisa Sotomayor MD [facility] [place] [address] Social History Tobacco Use Types Packs/Day Years [...] 1:30 PM EST Office [place] [phone] Eron Barriga MD [facility] [place] [address] documented as of this encounter Visit Diagnoses Not on filedocumented in this encounter Care Teams Apparatus Engineering Technologist Relationship Specialty Start Date End Date Lc Venegas PA [address] [place] [address] PCP - General General Internal Medicine 09/03/17 documented as of this encounter
--- OUTSIDE RECORDS SUMMARY | 2024-06-28 14:07 | XMS_ITS | Encounter Summary ---
Author Organization [facility] Address [facility] [place] [address] Care Team Providers Care Back Grinder Name Role Phone Corin Skinner MD Primary Care Provider [phone] Encounter Details Date Type Department Care Team (Latest Contact Info) Description 09/02/2017 - 09/02/2017 12:04 AM [facility] Hospital Encounter Radiology Library at [facility] [place] [place] [address] Neo Gar MD Discharge Disposition: Home Social [...] 1:30 PM EST [place] [phone] Eron Barriga MD [facility] [place] [address] documented as of this encounter Procedures Procedure Name Priority Date/Time Associated Diagnosis Comments FILM LIBRARY STORAGE ONLY CT ABDOMEN AND PELVIS Routine 09/02/2017 12:00 AM EST documented in this encounter Results * Film Library- Storage Only CT Abdomen & Pelvis (09/02/2017 12:00 AM EST) Narrative RAD - 09/02/2017 6:27 PM EST This exam is for storage only and is auto-finalizing. Neo Gar MD IMG FILM LIBRARY OR DERABLES Performing Organization Address City/State/[facility] Co de Phone Number [place], [place] documented in this encounter Visit Diagnoses Not on filedocumented in this encounter Care Teams Back Grinder Relationship Specialty Start Date End Date Corin Skinner MD PCP - General 05/29/10 09/02/17 documented as of this encounter
[2024-06-28 16:42] LABS: BUN 26 mg/dL (7-18); CREATININE 1.1 mg/dL (0.70-1.30); Chloride 107 mmol/L (98-107); Estimated GFR 90.34 (mL/min/1.73m2); Glucose 82 mg/dL (74-106); Sodium 144 mmol/L (136-145)
== END 2024-06-28 13:45 | disposition home or self-care (01) ==
LOC: NCHCN 13:44
PROVIDERS: PCP Student in an Organized Health Care Education/Training Program; Visit Provider Student in an Organized Health Care Education/Training Program
DX: E87.1 Hypo-osmolality and hyponatremia (principal)
CPT/HCPCS: 80048

== ENCOUNTER 2024-07-15 04:51 | Outpatient (CLI) | payer MEDICAID, SELFPAY ==
[2024-07-15 16:06] LABS: Sodium 141 mmol/L (136-145)
== END 2024-07-15 04:52 | disposition home or self-care (01) ==
LOC: LBO 04:51
PROVIDERS: PCP Student in an Organized Health Care Education/Training Program; Visit Provider Internal Medicine Endocrinology, Diabetes & Metabolism
DX: E23.2 Diabetes insipidus (principal); E23.0 Hypopituitarism
CPT/HCPCS: 36415; 84295

== ENCOUNTER 2024-07-22 13:34 | Outpatient (REF) | payer MEDICAID, SELFPAY ==
--- OUTSIDE RECORDS SUMMARY | 2024-07-22 13:37 | XMS_ITS | Clinical Summary ---
Author Organization [facility] Address [address] [place] [address] Care Team Providers Care Automobile Sales Consultant Name Role Phone Ren Vaz MD Primary Care Provider [phone] Allergies Active Allergy Reactions Criticality Noted Date Comments Gemfibrozil Unknown Reaction 08/24/2010 Medications Cholecalciferol, Vitamin D3, 400 unit Tab Take 2.5 Tablets by mouth daily. 011 Active Melatonin 3 mg Tab Take 10 mg by mouth at bedtime. 011 Active QUEtiapine (SEROQUEL) 50 mg tabletIndications :Gonadotropin deficiency (HCC-CMS),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HCC-CMS),Panhypo pituitarism (HCC-CMS),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HCC-CMS),Seconda ry hypothyroidism Take 25 mg by mouth daily. Takes at 25 mg at noon Active desmopressin (DDAVP) 0.1 mg tablet Take 0.5 Tabs by mouth 3 times daily. Take 1/2 tab three times daily 45 Tab 3 014 Active Additional Information Patient taking differently: 0.1 mgoral,(No frequency reported), 0.1 mg in the am, 0.15 mg PM (1.5 tabs), Reported on 07/06/2024 hydrocortisone (CORTEF) 10 mg tablet Take 1 Tab by mouth 2 times daily Takes @@ 1200 & 1700 180 Tab 3 015 Active Additional Information Patient taking differently:10 mg oral 2 TIMES DAILY,TAke 20 mg AM and 10 mg at mid-afternoon, Reported on 07/06/2024 zonisamide (ZONEGRAN) 100 mg capsule Take 1 Cap by mouth daily 90 Each 3 015 Active Additional Information Patient taking differently: 400 mgoral DAILY, Reported on 07/06/2024 omeprazole (PRILOSEC) 20 mg capsule Take 2 [...] Take 1 Tablet by mouth daily. Active magnesium gluconate (MAG-G ORAL) Take 250 mg by mouth 2 times daily. Active baclofen (LIORESAL) 20 mg tablet Take 1 Tablet by mouth 4 times daily. Active Prazosin (MINIPRESS) 2 mg capsule 023 Active quetiapine (SEROQUEL XR) 150 mg ER 24 hr tablet 200 mg. 1 tab a night with seroquel XR 200mg, take one in am and use one as needed for severe agitation 023 Active pyridoxine, vitamin B6, (VITAMIN B6) 50 mg tablet Take 1 Tablet by mouth daily. Active cetirizine (ZYRTEC) 10 mg tablet Take 1 Tablet by mouth daily. Active montelukast (SINGULAIR) 10 mg tablet 023 Active levothyroxine (SYNTHROID) 200 mcg tablet Take 1 Tablet by mouth daily. Active alendronate (FOSAMAX) 70 mg tablet Take 1 Tablet by mouth every 7 days. Take with a full glass of water on empty stomach; for the next 30 minutes, nothing by mouth and do not lie down. 12 Tablet 3 024 Active tasimelteon (HETLIOZ) 20 mg capsule Take 20 mg by mouth daily. Active QUEtiapine (SEROQUEL) 200 mg tablet Take 1 Tablet by mouth daily. At bedtime Active methyl salicylate/mentho l (BENGAY TOP) Apply topically. Bengay Ultra Strength topical cream Active hydrOXYzine (ATARAX) 25 mg tablet Take 1 Tablet by mouth 3 times daily. Active quetiapine (SEROQUEL) 300 mg tablet Take 200 mg by mouth at bedtime. 011 2023 Discontinued acetaminophen (TYLENOL) 325 mg tablet Take 200 mg by mouth every 4 hours as needed for Pain or Fever. Reported on 10/31/2016 011 2023 Discontinued traZODone (DESYREL) 50 mg tabletIndications :Gonadotropin deficiency (HCC-CMS),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HCC-CMS),Panhypo pituitarism (HCC-CMS),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HCC-CMS),Seconda ry hypothyroidism Take 100 mg by mouth daily. 2023 Discontinued HYDROCODONE/ACETA MINOPHEN (VICODIN ORAL) Take 5 mg by mouth. 2023 Discontinued testosterone (ANDROGEL) 1 % (50 mg/5 gram) gel packet Apply 5 g topically daily. 2023 Discontinued testosterone (ANDROGEL) 20.25 mg/1.25 gram (1.62 %) transdermal gel pumpIndications:P anhypopituitarism (HCC-CMS) Apply 3 pump actuations topically daily for 90 days Daily Max: 60.75 mg 337.5 g 0 015 2023 Discontinued cyclobenzaprine (FLEXERIL) 10 mg tablet Take 10 mg by mouth 3 times daily. 2023 Discontinued sennosides (SENEXON ORAL) Take by mouth. 2023 Discontinued ramelteon (ROZEREM) 8 mg tablet Take 1 Tablet by mouth daily. 2023 Discontinued Active Problems Patient Care Coordination No te Formatting of this note migh t be different from the original. Patient has given permission for the [facility] to verbally discuss the following information [...] it. 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/2010 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HCC-CMS) 03/2010 Craniopharyngioma (HCC-CMS) 06/14/2010 Gonadotropin deficiency (HCC-CMS) 06/14/2010 Secondary hypothyroidism 06/14/2010 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HCC-CMS) 06/14/2010 Encounters Date Type Department Care Team Description 07/06/2024 14:30 EST Phlebotomy Only [address] [phone] Phlebotomy, [facility] 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HCC-CMS); Secondary hypothyroidism; 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HCC-CMS) 07/06/2024 13:40 EST Office Visit [address] [phone] Wilder Zaidi, 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); History of pituitary surgery; Secondary adrenal insufficiency (HCC-CMS); 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HCC-CMS); Craniopharyngioma (HCC-CMS); 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HCC-CMS); Secondary hypothyroidism 06/21/[address] [address] Wilder Zaidi, Other (Needs permission to discuss); Follow-up from [...] Sign Reading Time Taken Comments Blood Pressure 128/72 07/06/2024 1340 EST Pulse 84 07/06/2024 1340 EST Temperature 33.8 ??C (92.8 ??F) 02/25/2011 1 635 EDT re-taken and got the same result; RN notified- Lindsey Respiratory Rate 12 12/27/2014 1100 EDT Oxygen Saturation 100% 02/25/2011 163 5 EDT Inhaled Oxygen Concentration - - Weight 96.6 kg (213 lb) 07/06/2024 1340 EST Height 170.2 cm (5' 7.01) 07/06/2024 1 340 EST Body Mass Index 33.35 07/06/2024 1340 EST Plan of Treatment Upcoming Encounters Date Type Department Care Team (Late st Contact Info) Description 10/01/2024 13:40 EDT Office Visit [facility] Endocrinology - [facility] [address] [place] [address] Wilder Zaidi, [address] [facility] [address] [place] [address] Health Maintenance Due Date Last Done Comments Hepatitis B Vaccine (1 of 3 - 19+ 3-dose series) 2009 COVID-19 Vaccine ( season) 2024, 02/26/2022 Hepatitis C Screen Completed 07/30/2019, 02/26/2005 Medical Devices Implanted Type Area Digital Publishing Specialist Device Identifier Shelf Expiration Date Model / [...] Date/Time Associated Diagnosis Comments T4 FREE Routine 07/06/2024 14:44 EST Secondary hypothyroidism BASIC METABOLIC PANEL (BMP) Routine 07/06/2024 14:44 EST 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HCC-CMS) HEMOGLOBIN A1C Routine 07/06/2024 14:44 EST Secondary male hypogonadism HEPATITIS C AB W REFLEX TO HCV RNA BY PCR Routine 07/30/2019 11:59 EST from Last 3 Months or Most Recently Relevant to Health Maintenance Results * T4 FREE (07/06/2024 14:44 EST) T4, Free 1.4 0.8 - 2.2 ng/dL 07/06/2024 18:52 EST [facility] Blood VENOUS BLOOD / Unknown Venipuncture / Unknown 07/06/2024 14:44 EST 07/06/2024 14:45 EST Wilder Zaidi DO CHEMISTRY & BLOOD GAS ORDERABLES Final Result [facility] [address] [place] [address] * HEMOGLOBIN A1C (07/06/2024 14:44 EST) Hemoglobin A1c 4.9 <5.7 % 07/06/2024 20:54 EST [facility] Comment: Glycemic Status References: Normal: ??<5.7% Pre-Diabetes: ??5.7% - 6.4% Diagnostic of Diabetes: ??> or = 6.5% (if confirmed) Est Avg Glucose 94 mg/dL 20:54 EST [facility] Comment:The eAG represents t he A1c result expressed as average glucose in mg/dL. Blood VENOUS BLOOD / Unknown Venipuncture / Unknown 07/06/2024 14:44 EST 07/06/2024 14:45 EST Wilder Zaidi DO CHEMISTRY & BLOOD GAS ORDERABLES Final Result Performing Organization Address City/[facility]/ZIP Co de Phone Number [facility] [address] [place] [address] * BASIC METABOLIC PANEL (BMP) (07/06/2024 14:44 EST) Sodium 142 136 - 145 mmol/L 07/06/2024 18:31 [facility] Potassium 4.3 3.5 - 5.0 mmol/L 07/06/2024 18:31 [facility] Chloride 107 96 - 110 mmol/L 07/06/2024 18:31 [facility] CO2 Total 22 22 - 32 mmol/L 07/06/2024 18:31 [facility] Anion Gap 13 5 - 14 mmol/L 07/06/2024 18:31 [facility] Glucose 87 70 - 99 mg/dl 07/06/2024 18:31 [facility] Calcium 9.2 8.5 - 10.5 mg/dL 07/06/2024 18:31 [facility] BUN 17 10 - 26 mg/dL 07/06/2024 18:31 [facility] Creatinine 0.95 0.66 - 1.25 mg/dL 07/06/2024 18:31 [facility] eGFR 108 >60 mL/min/1.73 m2 07/06/2024 18:31 [facility] Blood VENOUS BLOOD / Unknown Venipuncture / Unknown 07/06/2024 14:44 EST 07/06/2024 14:45 EST Wilder Zaidi DO CHEMISTRY & BLOOD GAS ORDERABLES Final Result Performing Organization Address City/[facility]/ZIP Co de Phone Number [facility] [address] [place] [address] * HEPATITIS C AB W REFLEX TO HCV RNA BY PCR (07/30/2019 11:59 EST) Hep C Antibody Negative Negative 08/02/2019 11:26 EST [facility] Blood VENOUS BLOOD / Unknown 07/30/2019 11:59 EST 07/30/2019 16:45 EST us Rachanagene Robb MD CHEMISTRY & BLOOD GAS ORDERABLES Final Result [facility] [address] [place] [address] from Last 3 Months or Most Recently Relevant to Health Maintenance Insurance MEDICAID [place] Advance Directives For more information, please contact: [phone] Documents on File Type Date Recorded 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
--- OUTSIDE RECORDS SUMMARY | 2024-07-22 13:37 | XMS_ITS | Continuity of Care Document ---
Author Organization [place] [facility], [facility] Address [address] [place] [address] Care Team Providers Care Records Tech Name Role Phone [facility] Psychiatrist Assessment No assessment recorded. Plan of Treatment Reminders Order Date Submit Date Provider Last Modified By Organization Details Last Modified Time Details Appointments Follow Up 30 2024 10:30A M Terry More Not available Not available Not available Lab None recorded. Referral None recorded. Procedures None recorded. Surgeries None recorded. Imaging None recorded. Medication Orders cephalexi n 500 mg capsule 2023 024 [facility] [place], [address], 06/28/2024 13:34:22 Patient TargetsNo targets recorded. Patient Instructions Encounter Date Encounter Id Patient Instructions Last Modified By Organization Details Last Modified Time 05/04/2024 [id number] cellulitis: care instructions [email or web address] Not available 05/04/2024 11:24:50 Reason for Referral None Reported. Results Created Date Observation Date Name Description Value Unit Range Abnormal Flag Note LastModifiedBy Organization Detail LastModifiedTime 06/13/20 24 06/13/2024 vrad repor t Patien t Name: Miguel Angel Burgos Unit #: [id number] Loc: ER Orderi ng Provid er: Accoun t #: [id number] Status : PRE ER Primar y [...] Comput ed tomogr aphy of the head withke lazaro. COMPAR HARDIK: CT HEAD WO 8:38 AM FINDIN GS: [...] cm x 2.3 cm on the compar hardik exam from October 02. There is a [...] of the extra- axial space along the rn quality ior midlin e of the rn quality ior fossa presum ably repres ents promin [...] increa sed in size since the compar hardik exam from October 03, 2023. Furthe r [...] and tempor al lobes. Dictat ed and Authen ticate d by: Jaime Ceballos MD. Orderi ng:Madeleine Ortega MD Access ion#=[id number] Ordere d By: CC: ------ ------ ------ ------ [...] error, please notify us immedi ately at [phone] and return the origin al report to us at the addres s above. Thank- you. [email or web address] [facility] [address] [place], [address] 06/14/2024 13:39:40 06/14/20 24 06/14/2024 CT imagi ng repor t Patien t Name: Miguel Angel Burgos Unit #: [id number] Loc: ER Orderi ng Provid er: Diego Winchester M.D. Accoun t #: [id number] Status : DEP ER Primar y Care Provid er: Jose More Date of Exam: 02/27 Sex: M : 1989 Age: 33 Exam(s ) a CT:CT head wo Exam(s ) CT HEAD WO EXAM: CT HEAD WO CLINIC AL HISTOR Y: Cet citlali sz. TECHNI QUE: Imagin g Protoc ol: Axial comput ed tomogr aphy images with johnston l and sagitt al reform atted images were create d and review ed COMPAR HARDIK: CT CT HEAD WO from 2023 FINDIN [...] pathol ogy. Study 1st read by Fannie CHRISTIE Tele diolog y. RADIAT ION DOSE DELIVE RED: 865.98 mGy.cm Total DLP DATA REPOSI TORY: All CT scans at this facili ty are submit ivana to the [facility] al Radiol ogy Data Regist ry [...] to clinic al indica tion); or iterat cliff recons tructi on. 1208-0 018: Total DLP = 0.00 mGy-cm Ordere d By: Diego Winchester M.D. CC: ------ ------ ------ ------ ------ ------ ------ ------ ------ ------ ------ ------ ---- Dictat ed By: Otto Herrera M.D. 856 Transc ribed By: Javier PANG,Rosmery rubin 856 This is privil eged, confid ential inform ation intend ed only for the provid er named. Any use or distri bution by any person other than this provid er is strict ly prohib ited. If you receiv e this report in error, please notify us immsaji resendiz at [phone] and return the origin al report to us at the addres s above. Thank- you. INTERFACE [facility] [address], [place], [address] 06/14/2024 09:01:48 Result Notes None recorded. 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 2016 Problem Code: H47.20; Problem Code Type: ICD-10; Not Available [facility] 3 04:21:52 Gastriti s 1689179 Active 2016 Problem Code: K29.70; Problem Code Type: ICD-10; Not Available [facility] 3 04:21:52 Urinary incontin ence 797110926 Active 2016 Problem Code: R32; Problem Code Type: ICD-10; Not Available [facility] 3 04:21:52 Senile osteopor osis 72698427 Active 201602/22/20 21 - Comments only - [...] M81.0; Problem Code Type: ICD-10; Not Available [facility] 3 04:21:52 Pure hypergly ceridemi a 408416327 Active 201602/27/20 22 - Comments only - Ren Vaz MD - tolerati ng statin. However with elevated LFTs could consider cutting statin dose to see if helps LFTs. 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 See above. 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 Cycloben zaprine no longer effectiv e. Will change to baclofen 10mg TID. vaccine manager will call in 1-2 weeks to report effectiv eness. Pain may be influenc ing increase d agitatio n and poor sleep. Problem Code: M24.50; Problem Code Type: ICD-10; Not Available [facility] 3 04:21:53 Amnesia 63211974 Active 2016 Problem Code: R41.3; Problem Code Type: ICD-10; Not Available [facility] 3 04:21:53 Hemipleg ia 64991987 Active 201602/22/20 21 - Comments only - Ren Vaz MD - Encourag ing increase in activty. I agree with PT. Problem Code: G81.90; Problem Code Type: ICD-10; Not Available [facility] 3 04:21:54 Red blood cell finding 565930918 Active 2017 Problem Code: R71.8; Problem Code Type: ICD-10; Not Available [facility] 3 04:21:54 Retentio n of urine 533678558 Active 201805/18/20 19 - Comments only - Subha Colon APRN - Suscepti ble to UTIs. They will return urine sample for testing. Problem Code: R33.9; Problem Code Type: ICD-10; Not Available [facility] 3 04:21:54 Restless ness and agitatio n 913969684 Active 2018 Problem Code: R45.1; Problem Code Type: ICD-10; Not Available formerly [facility] 3 04:21:54 Seizure 77510842 Active 2018 Problem Code: R56.9; Problem Code Type: ICD-10; Not Available [facility] 3 04:21:54 Dyspnea 774390604 Completed 201806/01/2019 Problem Code: R06.02; Problem Code Type: ICD-10; Not Available formerly [facility] 3 04:21:54 Acute upper respirat ory infectio n 36565429 Completed 201806/01/2019 05/18/20 19 - Comments only - Subha Colon APRN - With low-grad e fever, producti ve cough, wheezing . Pt is quite suscepti ble to both respirat ory and urinary tract infectio ns. Will start doxycycl ine to cover for possible pneumoni a. Advised to increase use of nebulize r to TID. Problem Code: J06.9; Problem Code Type: ICD-10; Not Available formerly [facility] 3 04:21:55 Steatosi s of liver 897345925 Active 201903/03/20 23 - Comments only - Ren Vaz MD - Improved last year with weight loss. REcheck CBC/CMP with labs Problem Code: K76.0; Problem Code Type: ICD-10; Not Available [facility] 3 04:21:55 Adult health examinat ion Active [...] Z00.00; Problem Code Type: ICD-10; Not Available [facility] 3 04:21:55 Bradycar hossein 03972409 Completed 201909/01/2019 08/25/19 20 - Comments only - Ren Vaz MD - Resolved after stopping metoprol ol. BP still okay, no hard indicati on for metoprol ol, so continue off this medicati on. Problem Code: R00.1; Problem Code Type: ICD-10; Not Available [facility] 3 04:21:55 Urticari a 743233769 Active 201908/14/19 21 - Comments only - Ren Vaz MD - irmpoved . continue higher dose H2 gui for now. Problem Code: L50.9; Problem Code Type: ICD-10; Not Available [facility] 3 04:21:55 Localize d eruption of skin 568293624 Completed 201904/26/2020 04/05/20 20 - Comments only - Ricarda Sanchez KNITTER HAND - Unclear etiology : possibly contact urticari [...] R21; Problem Code Type: ICD-10; Not Available [facility] 3 04:21:56 Anemia 618324790 Active 202008/20/19 22 - Comments only - Ren Vaz MD - This has been a stable chronic issue. We discusse d I iron stores actually normal, low TIBC suggests chronic disease cause. Continue to follow. Problem Code: D64.9; Problem Code Type: ICD-10; Not Available [facility] 3 04:21:56 Hypo-osm olality and or hyponatr emia 866806563 Active 202002/22/20 21 - Comments only - Ren Vaz MD - Doing well on fluid restrict ion, continue . Problem Code: E87.1; Problem Code Type: ICD-10; Not Available [facility] 3 04:21:56 Obesity 293702447 Active 2020 Problem Code: E66.9; Problem Code Type: ICD-10; Not Available [facility] 3 04:21:56 Furuncle of left axilla 70940841873 087690 Active 202003/14/20 21 - Comments only - [...] L02.422; Problem Code Type: ICD-10; Not Available [facility] 3 04:21:56 Trichoti manishaia 60628065 Active 202102/27/20 22 - Comments only - Ren Vaz MD - Discusse d skin care, defer medicati on adjustme nts to psych Problem Code: F63.3; Problem Code Type: ICD-10; Not Available [facility] 3 04:21:56 Diabetes insipidu s 30062673 Active 201605/24/20 19 - Comments only - Subha Colon APRN - Will recheck sodium level. Problem Code: E23.2; Problem Code Type: ICD-10; Not Available [facility] 3 04:21:57 Hypopitu itarism 95261963 Active 2016 Problem Code: E23.0; Problem Code Type: ICD-10; Not Available [facility] 3 04:21:57 Hypothyr oidism 47317052 Active 201602/22/20 21 - Comments only - Ren Vaz MD - FT4 at [facility], continue current supplume ntation Problem Code: E03.8; Problem Code Type: ICD-10; Not Available [facility] 3 04:21:57 History and physical examinat ion, administ rative Completed 201807/09/2019 Problem Code: Z02.89; Problem Code Type: ICD-10; Not Available [facility] 3 04:21:58 Disorder of eye 433147566 Completed 201804/05/2019 Problem Code: H44.89; Problem Code Type: ICD-10; Not Available [facility] 3 04:21:59 Pain of left knee joint 47238141490 4107 Completed 201707/09/2019 Problem Code: M25.562; Problem Code Type: ICD-10; Not Available [facility] 3 04:21:59 Bleeding 834707332 Completed 202002/21/2021 Problem Code: R58; Problem Code Type: ICD-10; Not Available [facility] 3 04:21:59 Fever 074262055 Completed 201804/05/2019 Problem Code: R50.9; Problem Code Type: ICD-10; Not Available [facility] 3 04:21:59 Family history of diabetes mellitus 012856916 Completed 201607/09/2019 Problem Code: Z83.3; Problem Code Type: ICD-10; Not Available [facility] 3 04:22:00 Fever 545243103 Completed 201805/24/2019 Problem Code: R50.9; Problem Code Type: ICD-10; Not Available [facility] 3 04:22:00 Gastroes ophageal reflux disease without esophagi tis 465576412 Completed 201604/02/2023 Problem Code: K21.9; Problem Code Type: ICD-10; Not Available [facility] 3 04:22:00 Wheezing 76872372 Completed 201709/18/2018 Problem Code: R06.2; Problem Code Type: ICD-10; Not Available [facility] 3 04:22:00 High enzyme level in serum 500769252 Completed 201904/02/2023 02/27/20 22 - Comments only [...] R74.8; Problem Code Type: ICD-10; Not Available [facility] 3 04:22:01 Body mass index 30+ - obesity 283444754 Completed 202004/02/2023 Problem Code: Z68.34; Problem Code Type: ICD-10; Not Available formerly [facility] 3 04:22:01 Disorder of intestin e 50928617 Completed 202008/14/2020 Problem Code: K63.9; Problem Code Type: ICD-10; Not Available formerly [facility] 3 04:22:01 Screenin g for disorder Completed 201809/18/2018 Problem Code: Z13.9; Problem Code Type: ICD-10; Not Available formerly [facility] 3 04:22:01 Spasm 21498088 Completed 201704/02/2023 08/25/19 20 - Comments only - Ren Vaz MD - Ongoing problem since CVA. Has neuro consult in october to consiide botox. For now try higher dose lorazepa m along with baclofen . Problem Code: R25.2; Problem Code Type: ICD-10; Not Available [facility] 3 04:22:02 Pain of right knee joint 23076036829 4100 Completed 201704/30/2018 Problem Code: M25.561; Problem Code Type: ICD-10; Not Available [facility] 3 04:22:02 Cough 25494203 Completed 201709/08/2019 Problem Code: R05; Problem Code Type: ICD-10; Not Available [facility] 3 04:22:02 Iron deficien cy anemia 70730587 Completed 201704/02/2023 Problem Code: D50.8; Problem Code Type: ICD-10; [address], [place], [address] , [facility] 4 09:14:59 Counseli ng Completed 201812/08/2018 Problem Code: Z71.89; Problem Code Type: ICD-10; Not Available [facility] 3 04:22:03 Disorder of tooth developm ent 480324772 Completed 201808/14/2020 Problem Code: K00.9; Problem Code Type: ICD-10; Not Available [facility] 3 04:22:03 Hypocalc emia 0552166 Completed 201910/25/2019 Problem Code: E83.51; Problem Code Type: ICD-10; Not Available [facility] 3 04:22:03 Hyperosm olality and or hypernat remia 477347488 Completed 201908/14/2020 Problem Code: E87.0; Problem Code Type: ICD-10; Not Available [facility] 3 04:22:04 Testicul ar hypofunc tion 466738621 Completed 201604/02/2023 Problem Code: E29.1; Problem Code Type: ICD-10; Not Available [facility] 3 04:22:04 Seasonal allergic rhinitis 065864644 Completed 201904/02/2023 10/25/19 20 - Comments only - Ren Vaz MD - try H1 block Problem Code: J30.2; Problem Code Type: ICD-10; Not Available [facility] 3 04:22:05 Wheezing 73724423 Completed 201805/24/2019 Problem Code: R06.2; Problem Code Type: ICD-10; Not Available formerly [facility] 3 04:22:05 Seizure 72328363 Completed 201607/09/2019 Problem Code: R56.9; Problem Code Type: ICD-10; Not Available formerly [facility] 3 04:22:05 Chronic excoriat ion of skin 113712692 Active [address], [facility] [address] , [facility] 4 09:12:56 Non-alco holic fatty liver disease Active [address], [place] [address] , [facility] 4 09:14:30 Iron deficien cy anemia 51120769 Active 2023 Problem Code: D50.8; Problem Code Type: ICD-10; [address], [facility] [address] , [facility] 4 09:14:59 Pruritic disorder 970985737 Active [address], [place] [address] , [facility] 4 09:21:10 Seizure disorder 123669721 Active [address], [facility] [address] , [facility] 4 10:59:32 Finding of frequenc y of urinatio n 191328299 Active [address], [place], [address] , [facility] 4 11:23:00 Notes:*Problem Name: Blindne ss - both eyes *Problem Status: active *Comments: *Problem Code: H54.0 *Problem Code Type: ICD-10 *Note Date: 11/11/2016 Problem Notes None recorded. Medical Equipment None Reported. Allergies Allergen ID Allergen Name Allergen Category Reaction Reaction Severity Criticality Documentation Date Start Date Code Code System Note Provider Name and Address Organization Details Recorded Time 82654 Lopid medicatio n Not available Not available Not available 05/04/2024 9 RxNorm MALOU Martinez, [facility] 4 10:58:41 Medications Name Sig Start Date Stop [...] 500 mg capsule Take 1 capsule every 8 hours by oral route for 7 days. 2024 active Not Available Not Available Not Avai [...] active Not Available Not Available Not Avai alexandr garcia Dx: G81.90 - replacem ent for broken one 09/08/ 2020 08/28 /2023 completed Not Available Not Available Not Available [...] and Address Organization Details Last Updated DateTime 167.157 4 cm 33.3 kg/m2 58821.4 4 g 97.7 [degF] 97 % 97 % 92 /min 18 /min 110 mm[Hg] 76 mm[Hg] Ashley England MA [facility] 10:58:12 Social History Question Answer Notes LastModified by Organizat ion Details LastModified Time Tobacco Smoking Status Never Smoker Ashley England MA null, [facility] 05/04/2024 11:00:43 What Was The Date Of Your Most Recent Tobacco Screening? 05/04/2024 [email or web address] Information not available 05/04/2024 Has Tobacco Cessation Counseling Been Provided? Yes [email or web address] Information not available 05/04/2024 On What Date Was Tobacco Cessation Counseling Provided? 05/04/2024 [email or web address] Information not available 05/04/2024 Sex: Male Functional Status None recorded. Mental Status None recorded. Family History Nothing Reported Notes:*Problem: Mom had trever l failure Diabetes in the family Medical History No medical history recorded. Immunizations Vaccine Type Date Status Note Provider Nam e and Address Organization Details Recorded Time MMR 0 completed Not Available [facility] 05/16/2023 04:39:45 MMR 2 completed Not Available [facility] 05/16/2023 04:39:46 Tdap 1 completed Not Available [facility] 05/16/2023 04:39:47 Tdap 1 completed Not Available [facility] 05/16/2023 04:39:48 Influenza, split virus, quadrivalent, PF 9 completed Not Available [facility] 05/16/2023 04:39:48 Hib, unspecified formulation 1 completed Not Available [facility] 05/16/2023 04:39:48 Hib, unspecified formulation 1 completed Not Available [facility] 05/16/2023 04:39:49 Hib, unspecified formulation 2 completed Not Available [facility] 05/16/2023 04:39:49 Hib, unspecified formulation 1 completed Not Available formerly [facility] 05/16/2023 04:39:49 DTaP 1 completed Not Available [facility] 05/16/2023 04:39:50 DTaP 1 completed Not Available [facility] 05/16/2023 04:39:50 DTaP 6 completed Not Available [facility] 05/16/2023 04:39:50 DTaP 1 completed Not Available [facility] 05/16/2023 04:39:50 DTaP 2 completed Not Available [facility] 05/16/2023 04:39:50 COVID-19, mRNA, LNP-S, PF, 100 mcg/0.5mL dose or 50 mcg/0.25mL dose 1 completed Not Available [facility] 05/16/2023 04:39:50 COVID-19, mRNA, LNP-S, PF, 100 mcg/0.5mL dose or 50 mcg/0.25mL dose 2 completed Not Available [facility] 05/16/2023 04:39:51 SARS-COV-2 (COVID-19) vaccine, UNSPECIFIED 1 completed Not Available [facility] 05/16/2023 04:39:52 SARS-COV-2 (COVID-19) vaccine, UNSPECIFIED 1 completed Not Available [facility] 05/16/2023 04:39:52 Hep B, unspecified formulation 3 completed Not Available [facility] 05/16/2023 04:39:52 Hep B, unspecified formulation 3 completed Not Available [facility] 05/16/2023 04:39:52 Hep B, unspecified formulation 3 completed Not Available [facility] 05/16/2023 04:39:52 influenza, unspecified formulation 4 completed Not Available [facility] 05/16/2023 04:39:53 polio, unspecified formulation 1 completed Not Available [facility] 05/16/2023 04:39:53 polio, unspecified formulation 1 completed Not Available [facility] 05/16/2023 04:39:54 polio, unspecified formulation 6 completed Not Available [facility] 05/16/2023 04:39:54 polio, unspecified formulation 1 completed Not Available [facility] 05/16/2023 04:39:54 polio, unspecified formulation 2 completed Not Available [facility] 05/16/2023 04:39:54 rabies, unspecified formulation 5 completed Not Available [facility] 05/16/2023 04:39:55 rabies, unspecified formulation 5 completed Not Available [facility] 05/16/2023 04:39:55 Influenza, split virus, trivalent, PF 4 completed [address] S[address]OS [address], [place], [address], [facility] 06/29/2024 17:51:39 Influenza, split virus, quadrivalent, PF 3 completed Not Available [facility] 07/18/2023 05:33:06 COVID-19, mRNA, LNP-S, PF, kota-sucrose, 30 mcg/0.3 mL 3 completed Not Available [facility] 07/18/2023 05:33:07 Past Encounters Encounter ID Performer Location Encounter Start Date Encounter Closed Date Diagnosis/Indication Diagnosis SNOMED-CT Code Diagnosis ICD10 Code Diagnosis Note [id number] LAURIE RODGERS [address] [place] [address] 05/04/2024 09:55:01 05/04/2024 11:28:26 Cellulitis of right lower limb [id number] 6781894 L03.115 33 year old male with onset of wound to R posterior thigh (does have history of skin picking), that has become more red, tender, and indurated in the last 2 days. No fevers, no active drainage. Today, area is very indurated, with no obvious fluctuance or drainable abscess. We discussed use of warm compresses several times per day, and will start cephalexin 500 mg QID X 7 days. To return for fevers, worsening/ spreading redness despite 24-48 hours of antibiotic s, or signs that area is amenable to incision and drainage. Health Concerns Section Related Observation LastModified by Organization Detai ls LastModified Time None Recorded Concern Status LastModified by Organization Details LastModified Time None Recorded Payers Encounter Date Sequence Insurance Name Policy Number Policy Soliman Covered Member ID Soliman Member ID Guarantor Name 05/04/2024 1 [facility] (MEDICAID) Miguel Angel Burgos [id number] Miguel Angel Burgos Notes Date Note Type Note Provider Name and Address Organization Details Recorded Time 05/04/2024 text/html Patient with possible abscess/boil to posterior R thigh, first noticed 2 nights ago, has become larger is more tender.Does have a small head with no visible drainage per caregivers at longterm.Has had no fevers.Has had past skin infection to axilla. No recent antibiotic use. No history of drug resistant skin infections. LAURIE RODGERS [address], [place], [address], [facility], [facility]. 05/04/2024 16:17:55
--- OUTSIDE RECORDS SUMMARY | 2024-07-22 13:37 | XMS_ITS | Referral Summary ---
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 Oral Hayes,Anoop barone Involved. These Are Mri Safe To 3t [...] 0.8 - 2.2 ng/dL 07/06/2024 18:52 EST [facility] Blood VENOUS BLOOD / Unknown Venipuncture / Unknown 07/06/2024 14:44 EST 07/06/2024 14:45 EST us Wilder Zaidi DO CHEMISTRY & BLOOD GAS ORDERABLES Final Result [facility] [address] [place] [id number] * HEMOGLOBIN A1C (07/06/2024 14:44 EST) Hemoglobin A1c 4.9 <5.7 % 07/06/2024 20:54 EST [facility] Comment: Glycemic Status References: Normal: ??<5.7% Pre-Diabetes: ??5.7% - 6.4% Diagnostic of Diabetes: ??> or = 6.5% (if confirmed) Est Avg Glucose 94 mg/dL 20:54 [facility] Comment:The eAG represents t he A1c result expressed as average glucose in mg/dL. Blood VENOUS BLOOD / Unknown Venipuncture / Unknown 07/06/2024 14:44 EST 07/06/2024 14:45 EST Wilder Zaidi DO CHEMISTRY & BLOOD GAS ORDERABLES Final Result [facility] [address] [place] [address] * BASIC METABOLIC PANEL (BMP) (07/06/2024 14:44 EST) Sodium 142 136 - 145 mmol/L 07/06/2024 18:31 [facility] Potassium 4.3 3.5 - 5.0 mmol/L 07/06/2024 18:31 [facility] Chloride 107 96 - 110 mmol/L 07/06/2024 18:31 [facility] CO2 Total 22 22 - 32 mmol/L 07/06/2024 18:31 [facility] Anion Gap 13 5 - 14 mmol/L 07/06/2024 18:31 [facility] Glucose 87 70 - 99 mg/dl 07/06/2024 18:31 [facility] Calcium 9.2 8.5 - 10.5 mg/dL 07/06/2024 18:31 [facility] BUN 17 10 - 26 mg/dL 07/06/2024 18:31 [facility] Creatinine 0.95 0.66 - 1.25 mg/dL 07/06/2024 18:31 [facility] eGFR 108 >60 mL/min/1.73 m2 07/06/2024 18:31 [facility] Blood VENOUS BLOOD / Unknown Venipuncture / Unknown 07/06/2024 14:44 EST 07/06/2024 14:45 EST us Wilder Menendezjalyn DO CHEMISTRY & BLOOD GAS ORDERABLES Final Result [facility] [address] [place] [address] * HEPATITIS C AB W REFLEX TO HCV RNA BY PCR (07/30/2019 11:59 EST) Hep C Antibody Negative Negative 08/02/2019 11:26 EST [facility] Blood VENOUS BLOOD / Unknown 07/30/2019 11:59 EST 07/30/2019 16:45 EST us Rachana Robb MD CHEMISTRY & BLOOD GAS ORDERABLES Final Result [facility] [address] [place] [address] from Last 3 Months or Most Recently Relevant to Health Maintenance Insurance MEDICAID [facility] Advance Directives For more information, please contact: [phone] Documents on File Type Date Recorded Patient Radio Officer Expl anation Guardianship 06/25/2024 9:[address] [place] [address], [facility] Appointment of Gu * Full Code (Latest Code Status on File) Date Activated Date Inactivated Comments 02/24/2011 22:28 02/25/2011 20:41 Care Teams Registered Nurse Hh Case Manager Relationship Specialty Start Date End Date Ren Vaz MD [place] [address] PCP - General 09/30/18
--- OUTSIDE RECORDS SUMMARY | 2024-07-22 13:37 | XMS_ITS | Data Portability ---
Author Organization [place] - [facility] Address [address] [place] [address] Care Team Providers Care Rotary Drum Dyer Name Role Phone [facility] Psychiatrist Assessment No assessment recorded. Plan of Treatment Reminders Order Date Submit Date Provider Last Modified By Organization Details Last Modified Time Details Appointments Follow Up 2024 10:30A M Terry More Not available Not available Not available Lab lipids, total, serum [address] [facility] (Registration ), [address] [place] [address] [place], [address], 03/12/2024 14:26:44 CBC w/ auto diff 2023 024 [facility] (Registration ), [address] [place] [address] [place], [address], 03/05/2024 16:55:12 C-reactiv e protein, quantitat bebe, serum or plasma [address] [facility] (Registration ), [address] [place] [address] [place], [address], 03/12/2024 14:26:43 ESR (erythroc yte sedimenta tion rate), blood [address] [facility] (Registration ), [address] [place] [address] [place], [address], 03/12/2024 14:26:44 CMP, serum or plasma - 1 SST, 1 [place], 1 LAV 2023 024 [facility] (Registration ), [address] [place] [address] , [place], [address], 03/05/2024 16:36:05 urinalysi s, dipstick [address] [facility] (Lab Direct), [address] [place] [address] , [place], [address], 03/12/2024 14:26:43 TSH, serum, reflex free T4 [address] [facility] (Registration ), [address] [place] [address] , [place], [address], 03/12/2024 14:26:44 BMP, serum or plasma - 1 SST [address] [facility] (Registration ), [address] [place] [address] [place], [address], 07/05/2024 09:25:07 Referral wound care referral - Pt, 34-M, history of disordere d speech and developem ent, with right sided upper thigh wound, likely pressure related from recent hospitali zation and new left posterola teral thigh abscess being referred for wound care mgmt. I am starting patient on Cephlex for the left side abcess as it is painful and warm to the touch for 1-week duration and will see him back in clinic. 2024 025 [facility], [address] [place] [address] , [address], [place], [address], 07/19/2024 08:45:22 Procedures None recorded. Surgeries None recorded. Imaging None recorded. Medication Orders quetiapin e ER 200 mg tablet,ex tended release 24 hr 2023 024 [facility], [address] [facility], [place], [address], 03/05/2024 12:23:09 cephalexi n 500 mg capsule 2023 024 [facility] [place], [address], 06/28/2024 13:34:22 cephalexi n 500 mg capsule 2024 025 [facility], [address] [place], [address], 07/15/2024 10:28:11 Patient TargetsNo targets recorded. Patient Instructions Encounter Date Encounter Id Patient Instructions Last Modified By Organization Details Last Modified Time 05/04/2024 [id number] cellulitis: care instructions [email or web address] Not available 05/04/2024 11:24:50 07/15/2024 [id number] I have referred Miguel Angel to the wound care clinic He will be on Cephelexin, 500 MG three times daily for 1-week Please follow up in 1-week here with our office - If you suspect redness is spreading, draw a line around the red area in pen and please report if it is growing past this area after 48 hours of antibiotics OR if the pt. becomes febrile, stops acting like himself, or if you have other concerns please notify us. [email or web address] Not available 07/15/2024 10:30:34 Reason for Referral Pt, 34-M, history of disorde red speech and developement, with right sided upper thigh wound, likely pressure related from recent hospitalization and new left posterolateral thigh abscess being referred for wound care mgmt. I am starting patient on Cephlex for the left side abcess as it is painful and warm to the touch for 1-week duration and will see him back in clinic. Referring Physician: Jimbo More, Family Medicine, Encounter Date: 07/15/2024 Results Created Date Observation Date Name Description Value Unit Range Abnormal Flag Note LastModifiedBy Organization Detail LastModifiedTime 03/05/20 24 03/05/2024 COMPL ETE BLOOD COUNT W/DIF F WBC 6.97 10_3/ uL 4.4-10 .8 normal Not Available [facility] [address] , [place], [address] 03/05/2024 16:12:09 03/05/20 24 03/05/2024 COMPL ETE BLOOD COUNT W/DIF F RBC 5.23 10_6/ uL 4.36-5 .78 normal Not Available [address] [place], [address] 03/05/2024 16:12:09 03/05/20 24 03/05/2024 COMPL ETE BLOOD COUNT W/DIF F HGB 13.0 g/dL 13.5-1 7.5 low Not Available [address] [place], [address] 03/05/2024 16:12:09 03/05/20 24 03/05/2024 COMPL ETE BLOOD COUNT W/DIF F HCT 40.3 % 40.0-5 0.0 normal Not Available [address] [place], [address] 03/05/2024 16:12:09 03/05/20 24 03/05/2024 COMPL ETE BLOOD COUNT W/DIF F MCV 77 fL 80-95 low Not Available [address] [place], [address] 03/05/2024 16:12:09 03/05/20 24 03/05/2024 COMPL ETE BLOOD COUNT W/DIF F MCH 24.9 pg 27.0-3 3.0 low Not Available [address] [place], [address] 03/05/2024 16:12:09 03/05/20 24 03/05/2024 COMPL ETE BLOOD COUNT W/DIF F MCHC 32.3 % 32.0-3 6.0 normal Not Available [address] [place], [address] 03/05/2024 16:12:09 03/05/20 24 03/05/2024 COMPL ETE BLOOD COUNT W/DIF F RDW 15.7 % 11.8-1 4.1 high Not Available [address] [place], [address] 03/05/2024 16:12:09 03/05/20 24 03/05/2024 COMPL ETE BLOOD COUNT W/DIF F platelet count 237 10_3/ uL 130-40 0 normal Not Available [address] [place], [address] 03/05/2024 16:12:09 03/05/20 24 03/05/2024 COMPL ETE BLOOD COUNT W/DIF F MPV 10.4 fL 8.0-11 .0 normal Not Available [address] [place], [address] 03/05/2024 16:12:09 03/05/20 24 03/05/2024 COMPL ETE BLOOD COUNT W/DIF F neutrophils % 62.7 % Not Available [address] [place], [address] 03/05/2024 16:12:09 03/05/20 24 03/05/2024 COMPL ETE BLOOD COUNT W/DIF F lymphocytes % 25.3 % Not Available [address] [place], [address] 03/05/2024 16:12:09 03/05/20 24 03/05/2024 COMPL ETE BLOOD COUNT W/DIF F monocytes % 9.3 % Not Available [address] [place], [address] 03/05/2024 16:12:09 03/05/20 24 03/05/2024 COMPL ETE BLOOD COUNT W/DIF F eosinophils % 1.9 % Not Available [address] [place], [address] 03/05/2024 16:12:09 03/05/20 24 03/05/2024 COMPL ETE BLOOD COUNT W/DIF F basophils % 0.4 % Not Available [address] [place], [address] 03/05/2024 16:12:09 03/05/20 24 03/05/2024 COMPL ETE BLOOD COUNT W/DIF F immature grans % 0.4 % Not Available [address] [place], [address] 03/05/2024 16:12:09 03/05/20 24 03/05/2024 COMPL ETE BLOOD COUNT W/DIF F nucleated RBC 0.0 % 0.0-0. 3 normal Not Available [address] [place], [address] 03/05/2024 16:12:09 03/05/20 24 03/05/2024 COMPL ETE BLOOD COUNT W/DIF F absolute neutrophil count 4.37 10_3/ uL 1.2-6. 7 normal Not Available [address] [place], [address] 03/05/2024 16:12:09 03/05/20 24 03/05/2024 COMPL ETE BLOOD COUNT W/DIF F absolute lymphocyte count 1.76 10_3/ uL 1.2-3. 4 normal Not Available [address] [place], [address] 03/05/2024 16:12:09 03/05/20 24 03/05/2024 COMPL ETE BLOOD COUNT W/DIF F absolute monocyte count 0.65 10_3/ uL 0.1-0. 8 normal Not Available [address] [place], [address] 03/05/2024 16:12:09 03/05/20 24 03/05/2024 COMPL ETE BLOOD COUNT W/DIF F absolute eosinophil count 0.13 10_3/ uL 0.0-0. 7 normal Not Available [address] [place], [address] 03/05/2024 16:12:09 03/05/20 24 03/05/2024 COMPL ETE BLOOD COUNT W/DIF F absolute basophil count 0.03 10_3/ uL 0.0-0. 2 normal Not Available [address] [place], [address] 03/05/2024 16:12:09 03/05/20 24 03/05/2024 ESR ESR 2 mm/HR 0-15 normal Not Available [address] [place], [address] 03/05/2024 16:13:06 03/05/20 24 03/05/2024 COMPR EHENS BEBE METAB OLIC PANEL calcium 9.3 mg/dL 8.5-10 .1 normal Not Available [address] [place], [address] 03/05/2024 17:45:19 03/05/20 24 03/05/2024 COMPR EHENS BEBE METAB OLIC PANEL glucose 88 mg/dL 74-106 normal Not Available Barrie gomez [address] [place], [address] 03/05/2024 17:45:19 03/05/20 24 03/05/2024 COMPR EHENS BEBE METAB OLIC PANEL BUN 24 mg/dL 7-18 high Not Available Barrie gomez [address] [place], [address] 03/05/2024 17:45:19 03/05/2003/05/2024 COMPR EHENS BEBE METAB OLIC PANEL creatinine 1.1 mg/dL 0.70-1 .30 normal Not Available [address] [place], [address] 03/05/2024 17:45:19 03/05/20 24 03/05/2024 COMPR EHENS [...] young er-ag ed adult s. Not Available [address] [place], [address] 03/05/2024 17:45:19 03/05/20 24 03/05/2024 COMPR EHENS BEBE METAB OLIC PANEL total protein 7.3 g/dL 6.4-8. 2 normal Not Available [address] [place], [address] 03/05/2024 17:45:19 03/05/20 24 03/05/2024 COMPR EHENS BEBE METAB OLIC PANEL albumin 4.1 g/dL 3.4-5. 0 normal Not Available [address] [place], [address] 03/05/2024 17:45:19 03/05/20 24 03/05/2024 COMPR EHENS BEBE METAB OLIC PANEL bilirubin, total 0.22 mg/dL 0.2-1. 0 normal Not Available [address] [place], [address] 03/05/2024 17:45:19 03/05/20 24 03/05/2024 COMPR EHENS BEBE METAB OLIC PANEL alk phos 124 U/L 46-116 high Not Available [address] [place] [place], [address] 03/05/2024 17:45:19 03/05/20 24 03/05/2024 COMPR EHENS BEBE METAB OLIC PANEL sodium 142 mmol/ L 136-14 5 normal Not Available [address] [place], [address] 03/05/2024 17:45:19 03/05/20 24 03/05/2024 COMPR EHENS BEBE METAB OLIC PANEL potassium 3.7 mmol/ L 3.5-5. 1 normal Not Available [address] [place], [address] 03/05/2024 17:45:19 03/05/20 24 03/05/2024 COMPR EHENS BEBE METAB OLIC PANEL chloride 106 mmol/ L 98-107 normal Not Available [address] [place], [address] 03/05/2024 17:45:19 03/05/20 24 03/05/2024 COMPR EHENS BEBE METAB OLIC PANEL CO2 26.0 mmol/ L 21.0-3 2.0 normal Not Available [address] [place], [address] 03/05/2024 17:45:19 03/05/20 24 03/05/2024 COMPR EHENS BEBE METAB OLIC PANEL anion gap 10.0 mmol/ L 3-11 normal Not Available [address] [place], [address] 03/05/2024 17:45:19 03/05/20 24 03/05/2024 COMPR EHENS BEBE METAB OLIC PANEL AST 29 U/L 15-37 normal Not Available Barrie gomez [address] [place], [address] 03/05/2024 17:45:19 03/05/20 24 03/05/2024 COMPR EHENS BEBE METAB OLIC PANEL ALT 67 U/L 16-63 high Not Available Barrie [address] [place], [address] 03/05/2024 17:45:19 03/05/20 24 03/05/2024 TSH (W/RE F FT4) TSH (w/ref FT4) < 0.01 uIU/m L 0.36-3 .74 low Not Available [address] [place], [address] 03/05/2024 16:36:06 03/05/20 24 03/05/2024 C-CHELSEA CTIVE PROTE IN C-reactive protein 0.52 mg/dL <or=0. 5 high Not Available [address] [place], [address] 03/05/2024 16:36:06 03/05/20 24 03/05/2024 TSH (W/RE F FT4) TSH (w/ref FT4) < 0.01 uIU/m L 0.36-3 .74 low Not Available [address] [place], [address] 03/05/2024 17:05:17 03/05/20 24 03/05/2024 FREE T4 free T4 1.23 NG/dL 0.76-1 .46 normal Not Available [address] [place], [address] 03/05/2024 17:45:21 03/05/20 24 03/05/2024 C-CHELSEA CTIVE PROTE IN C-reactive protein 0.52 mg/dL <or=0. 5 high Not Available [address] [place], [address] 03/05/2024 17:05:18 03/05/20 24 03/05/2024 LIPID 2 cholesterol 91 mg/dL <200 Not Available [address] [place], [address] 03/05/2024 17:45:20 03/05/20 24 03/05/2024 LIPID 2 triglyceride 117 mg/dL <150 Not Available [address] [place], [address] 03/05/2024 17:45:20 03/05/20 24 03/05/2024 LIPID 2 HDL cholesterol 40 mg/dL 40-60 Not Available Pradeep boone[address] [place], [address] 03/05/2024 17:45:20 03/05/20 24 03/05/2024 LIPID 2 [...] 18 years or older . Not Available [address] [place], [address] 03/05/2024 17:45:20 03/05/20 24 03/05/2024 TSH (W/RE F FT4) TSH (w/ref FT4) < 0.01 uIU/m L 0.36-3 .74 low Not Available [address] [place], [address] 03/05/2024 17:45:20 03/05/20 24 03/05/2024 C-CHELSEA CTIVE PROTE IN C-reactive protein 0.52 mg/dL <or=0. 5 high Not Available [address] [place], [address] 03/05/2024 17:45:21 03/10/2003/10/2024 BASIC METAB OLIC PANEL calcium 9.2 mg/dL 8.5-10 .1 normal Not Available [address] [place], [address] 03/10/2024 17:04:57 03/10/2003/10/2024 BASIC METAB OLIC PANEL glucose 86 mg/dL 74-106 normal Not Available Barrie gomez [address] [place], [address] 03/10/2024 17:04:57 03/10/2003/10/2024 BASIC METAB OLIC PANEL BUN 17 mg/dL 7-18 normal Not Available Barrie gomez [address] [place], [address] 03/10/2024 17:04:57 03/10/2003/10/2024 BASIC METAB OLIC PANEL creatinine 0.9 mg/dL 0.70-1 .30 normal Not Available [address] [place], [address] 03/10/2024 17:04:57 03/10/2003/10/2024 BASIC METAB OLIC PANEL estimated GFR [...] young er-ag ed adult s. Not Available [address] [place], [address] 03/10/2024 17:04:57 03/10/2003/10/2024 BASIC METAB OLIC PANEL sodium 140 mmol/ L 136-14 5 normal Not Available [address] [place], [address] 03/10/2024 17:04:57 03/10/20 24 03/10/2024 BASIC METAB OLIC PANEL potassium 4.1 mmol/ L 3.5-5. 1 normal Not Available [address] [place], [address] 03/10/2024 17:04:57 03/10/20 24 03/10/2024 BASIC METAB OLIC PANEL chloride 104 mmol/ L 98-107 normal Not Available [address] [place], [address] 03/10/2024 17:04:57 03/10/20 24 03/10/2024 BASIC METAB OLIC PANEL CO2 27.6 mmol/ L 21.0-3 2.0 normal Not Available [address] [place], [address] 03/10/2024 17:04:57 03/10/20 24 03/10/2024 BASIC METAB OLIC PANEL anion gap 8.4 mmol/ L 3-11 normal Not Available [address] [place], [address] 03/10/2024 17:04:57 03/10/2003/10/2024 URINA LYSIS color Yellow yellow Not Available Barrie gomez [address] [place], [address] 03/10/2024 18:14:16 03/10/20 24 03/10/2024 URINA LYSIS clarity Clear clear Not Available Barrie gomez [address] [place], [address] 03/10/2024 18:14:16 03/10/20 24 03/10/2024 URINA LYSIS specific gravity 1.020 1.005- 1.025 normal Not Available [address] [place], [address] 03/10/2024 18:14:16 03/10/20 24 03/10/2024 URINA LYSIS pH 5.5 5-8 normal Not Available Barrie gomez [address] [place], [address] 03/10/2024 18:14:16 03/10/20 24 03/10/2024 URINA LYSIS leukocyte esterase Negati ve negati ve Not Available [address] [place], [address] 03/10/2024 18:14:16 03/10/20 24 03/10/2024 URINA LYSIS nitrite Negati ve negati ve Not Available [address] [place], [address] 03/10/2024 18:14:16 03/10/2003/10/2024 URINA LYSIS protein Negati ve mg/dL neg-tr mike Not Available [address] [place], [address] 03/10/2024 18:14:16 03/10/2003/10/2024 URINA LYSIS glucose Negati ve mg/dL negati ve Not Available [address] [place], [address] 03/10/2024 18:14:16 03/10/2003/10/2024 URINA LYSIS ketones Negati ve mg/dL negati ve Not Available [address] [place], [address] 03/10/2024 18:14:16 03/10/2003/10/2024 URINA LYSIS urobilinogen 0.2 mg/dL up to 0.2 Not Available [address] [place], [address] 03/10/2024 18:14:16 03/10/2003/10/2024 URINA LYSIS bilirubin Negati ve negati ve Not Available [address] [place], [address] 03/10/2024 18:14:16 03/10/2003/10/2024 URINA LYSIS blood Negati ve negati ve Not Available [address] [place], [address] 03/10/2024 18:14:16 03/10/20 24 03/13/2024 FREE THYRO XINE INDEX thyroxine total 10.8 mcg/d L 4.5 - 11.7 Not Available [address] [place], [address] 03/15/2024 08:25:07 03/10/20 24 03/13/2024 FREE THYRO XINE INDEX thyroxine binding capacity 1.1 tbi 0.8 - 1.3 Not Available [address] [place], [address] 03/15/2024 08:25:07 03/10/20 24 03/13/2024 FREE THYRO XINE INDEX free thyroxine index 9.8 mcg/d L 4.8 - 12.7 Test Perfo rmed by: [facility] - [place] [address], [place] [address] Lab Direc tor: Rosita Oreilly nn Ph.D. ; CLIA# [id number] Not Available [address] [place], [address] 03/15/2024 08:25:07 03/10/20 24 03/10/2024 BASIC METAB OLIC PANEL calcium 9.2 mg/dL 8.5-10 .1 normal Not Available [address] [place], [address] 03/16/2024 03:04:04 03/10/20 24 03/10/2024 BASIC METAB OLIC PANEL glucose 86 mg/dL 74-106 normal Not Available Barrie gomez [address] [place], [address] 03/16/2024 03:04:04 03/10/20 24 03/10/2024 BASIC METAB OLIC PANEL BUN 17 mg/dL 7-18 normal Not Available Barrie gomez [address] [facility] [place], [address] 03/16/2024 03:04:04 03/10/20 24 03/10/2024 BASIC METAB OLIC PANEL creatinine 0.9 mg/dL 0.70-1 .30 normal Not Available [address] [place], [address] 03/16/2024 03:04:04 03/10/20 24 03/10/2024 BASIC METAB [...] young er-ag ed adult s. Not Available [address] [place], [address] 03/16/2024 03:04:04 03/10/2003/10/2024 BASIC METAB OLIC PANEL sodium 140 mmol/ L 136-14 5 normal Not Available [address] [place], [address] 03/16/2024 03:04:04 03/10/20 24 03/10/2024 BASIC METAB OLIC PANEL potassium 4.1 mmol/ L 3.5-5. 1 normal Not Available [address] [place], [address] 03/16/2024 03:04:04 03/10/2003/10/2024 BASIC METAB OLIC PANEL chloride 104 mmol/ L 98-107 normal Not Available [address] [place], [address] 03/16/2024 03:04:04 03/10/20 24 03/10/2024 BASIC METAB OLIC PANEL CO2 27.6 mmol/ L 21.0-3 2.0 normal Not Available [address] [place], [address] 03/16/2024 03:04:04 03/10/2003/10/2024 BASIC METAB OLIC PANEL anion gap 8.4 mmol/ L 3-11 normal Not Available [address] [place], [address] 03/16/2024 03:04:04 03/10/20 24 03/10/2024 URINA LYSIS color Yellow yellow Not Available Barrie gomez [address] [place], [address] 03/16/2024 03:04:07 03/10/20 24 03/10/2024 URINA LYSIS clarity Clear clear Not Available Barrie gomez [address] [place], [address] 03/16/2024 03:04:07 03/10/20 24 03/10/2024 URINA LYSIS specific gravity 1.020 1.005- 1.025 normal Not Available [address] [place], [address] 03/16/2024 03:04:07 03/10/2003/10/2024 URINA LYSIS pH 5.5 5-8 normal Not Available Barrie gomez [address] [place], [address] 03/16/2024 03:04:07 03/10/2003/10/2024 URINA LYSIS leukocyte esterase Negati ve negati ve Not Available [address] [place], [address] 03/16/2024 03:04:07 03/10/20 24 03/10/2024 URINA LYSIS nitrite Negati ve negati ve Not Available [address] [place], [address] 03/16/2024 03:04:07 03/10/2003/10/2024 URINA LYSIS protein Negati ve mg/dL neg-tr mike Not Available [address] [place], [address] 03/16/2024 03:04:07 03/10/2003/10/2024 URINA LYSIS glucose Negati ve mg/dL negati ve Not Available [address] [place], [address] 03/16/2024 03:04:07 03/10/2003/10/2024 URINA LYSIS ketones Negati ve mg/dL negati ve Not Available [address] [place], [address] 03/16/2024 03:04:07 03/10/20 24 03/10/2024 URINA LYSIS urobilinogen 0.2 mg/dL up to 0.2 Not Available [address] [place], [address] 03/16/2024 03:04:07 03/10/20 24 03/10/2024 URINA LYSIS bilirubin Negati ve negati ve Not Available [address] [place], [address] 03/16/2024 03:04:07 03/10/20 24 03/10/2024 URINA LYSIS blood Negati ve negati ve Not Available [address] [place], [address] 03/16/2024 03:04:07 06/13/20 24 06/13/2024 SODIU M sodium 125 mmol/ L 136-14 5 low Not Available [address] [place], [address] 06/13/2024 23:39:16 06/13/20 24 06/13/2024 SODIU M sodium 122 mmol/ L 136-14 5 critical low Criti zurdo value repor ivana to and readb ack from OLINDA [facility] ([employer] CLERK) at 2222 06/13 by LAB.I TI Resul t verif ied by repea t guillermo sis Not Available [address] [place], [address] 06/13/2024 22:28:11 06/13/20 24 06/13/2024 URINA LYSIS color Yellow yellow Not Available Barrie gomez [address] [place], [address] 06/13/2024 20:53:56 06/13/20 24 06/13/2024 URINA LYSIS clarity Clear clear Not Available Barrie gomez [address] [place], [address] 06/13/2024 20:53:56 06/13/20 24 06/13/2024 URINA LYSIS specific gravity <= 1.005 1.005- 1.025 normal Not Available [address] [place], [address] 06/13/2024 20:53:56 06/13/20 24 06/13/2024 URINA LYSIS pH 5.0 5-8 normal Not Available Barrie gomez [address] [place], [address] 06/13/2024 20:53:56 06/13/20 24 06/13/2024 URINA LYSIS leukocyte esterase Negati ve negati ve Not Available [address] [place], [address] 06/13/2024 20:53:56 06/13/20 24 06/13/2024 URINA LYSIS nitrite Negati ve negati ve Not Available [address] [place], [address] 06/13/2024 20:53:56 06/13/20 24 06/13/2024 URINA LYSIS protein Negati ve mg/dL neg-tr mike Not Available [address] [place], [address] 06/13/2024 20:53:56 06/13/20 24 06/13/2024 URINA LYSIS glucose Negati ve mg/dL negati ve Not Available [address] [place], [address] 06/13/2024 20:53:56 06/13/20 24 06/13/2024 URINA LYSIS ketones Negati ve mg/dL negati ve Not Available [address] [place], [address] 06/13/2024 20:53:56 06/13/20 24 06/13/2024 URINA LYSIS urobilinogen 0.2 mg/dL up to 0.2 Not Available [address] [place], [address] 06/13/2024 20:53:56 06/13/20 24 06/13/2024 URINA LYSIS bilirubin Negati ve negati ve Not Available [address] [place], [address] 06/13/2024 20:53:56 06/13/20 24 06/13/2024 URINA LYSIS blood Negati ve negati ve Not Available [address] [place], [address] 06/13/2024 20:53:56 06/13/20 24 06/16/2024 ZONIS AMIDE zonisamide 17 mcg/m L 10-40 ----- ----- ----- ----A DDITI ONAL INFOR MATSHANEL N---- ----- ----- ----- This test was sydney padilla and its perfo rmanc e cristina cteri stics deter mined by [facility] in a elidia r consi stent with JEANNIE chanel ts. This test has not been clear ed or appro elly by the U.S. Food and Drug Admin istra tion. Test Perfo rmed by: [facility] - [place] [address], [place] [address] Lab Direc tor: Rosita Oreilly nn Ph.D. ; CLIA# [id number] Not Available [address] [place], [address] 06/17/2024 04:46:05 06/13/20 24 06/13/2024 MAGNE SIUM magnesium 2.1 mg/dL 1.8-2. 4 normal Not Available [address] [place], [address] 06/13/2024 21:12:58 06/13/20 24 06/13/2024 COMPR EHENS BEBE METAB OLIC PANEL calcium 8.2 mg/dL 8.5-10 .1 low Not Available [address] [facility] [place], [address] 06/13/2024 21:12:57 06/13/20 24 06/13/2024 COMPR EHENS BEBE METAB OLIC PANEL glucose 60 mg/dL 74-106 low Not Available Barrie gomez [address] [place], [address] 06/13/2024 21:12:57 06/13/20 24 06/13/2024 COMPR EHENS BEBE METAB OLIC PANEL BUN 15 mg/dL 7-18 normal Not Available Barrie gomez [address] [place], [address] 06/13/2024 21:12:57 06/13/20 24 06/13/2024 COMPR EHENS BEBE METAB OLIC PANEL creatinine 1.1 mg/dL 0.70-1 .30 normal Not Available [address] [place], [address] 06/13/2024 21:12:57 06/13/20 24 06/13/2024 COMPR EHENS [...] young er-ag ed adult s. Not Available [address] [place], [address] 06/13/2024 21:12:57 06/13/20 24 06/13/2024 COMPR EHENS BEBE METAB OLIC PANEL total protein 8.1 g/dL 6.4-8. 2 normal Not Available [address] [place], [address] 06/13/2024 21:12:57 06/13/20 24 06/13/2024 COMPR EHENS BEBE METAB OLIC PANEL albumin 4.1 g/dL 3.4-5. 0 normal Not Available [address] [place], [address] 06/13/2024 21:12:57 06/13/20 24 06/13/2024 COMPR EHENS BEBE METAB OLIC PANEL bilirubin, total 0.59 mg/dL 0.2-1. 0 normal Not Available [address] [place], [address] 06/13/2024 21:12:57 06/13/20 24 06/13/2024 COMPR EHENS BEBE METAB OLIC PANEL alk phos 132 U/L 46-116 high Not Available [address] [place], [address] 06/13/2024 21:12:57 06/13/20 24 06/13/2024 COMPR EHENS BEBE METAB OLIC PANEL sodium 121 mmol/ L 136-14 5 critical low Criti zurdo value repor ivana to and ángel ack from LEILANI STOVALL (RN), ER at 2105 06/13 by LAB.I TI bui verif ied by repea t guillermo sis Not Available [address] [place], [address] 06/13/2024 21:12:57 06/13/20 24 06/13/2024 COMPR EHENS BEBE METAB OLIC PANEL potassium 4.2 mmol/ L 3.5-5. 1 normal Not Available [address] [place], [address] 06/13/2024 21:12:57 06/13/20 24 06/13/2024 COMPR EHENS BEBE METAB OLIC PANEL chloride 86 mmol/ L 98-107 low Not Available [address] [place], [address] 06/13/2024 21:12:57 06/13/20 24 06/13/2024 COMPR EHENS BEBE METAB OLIC PANEL CO2 22.6 mmol/ L 21.0-3 2.0 normal Not Available [address] [place], [address] 06/13/2024 21:12:57 06/13/20 24 06/13/2024 COMPR EHENS BEBE METAB OLIC PANEL anion gap 12.4 mmol/ L 3-11 high Not Available [address] [place], [address] 06/13/2024 21:12:57 06/13/2006/13/2024 COMPR EHENS BEBE METAB OLIC PANEL AST 23 U/L 15-37 normal Not Available Barrie gomez [address] [place], [address] 06/13/2024 21:12:57 06/13/20 24 06/13/2024 COMPR EHENS BEBE METAB OLIC PANEL ALT 59 U/L 16-63 normal Not Available Barrie gomez [address] [place], [address] 06/13/2024 21:12:57 06/13/20 24 06/13/2024 COMPL ETE BLOOD COUNT W/DIF F WBC 6.66 10_3/ uL 4.4-10 .8 normal Not Available [address] [place], [address] 06/13/2024 21:04:58 06/13/20 24 06/13/2024 COMPL ETE BLOOD COUNT W/DIF F RBC 5.25 10_6/ uL 4.36-5 .78 normal Not Available [address] [place], [address] 06/13/2024 21:04:58 06/13/20 24 06/13/2024 COMPL ETE BLOOD COUNT W/DIF F HGB 12.9 g/dL 13.5-1 7.5 low Not Available [address] [place], [address] 06/13/2024 21:04:58 06/13/20 24 06/13/2024 COMPL ETE BLOOD COUNT W/DIF F HCT 38.5 % 40.0-5 0.0 low Not Available [address] [place], [address] 06/13/2024 21:04:58 06/13/20 24 06/13/2024 COMPL ETE BLOOD COUNT W/DIF F MCV 73 fL 80-95 low Not Available [address] [place], [address] 06/13/2024 21:04:58 06/13/20 24 06/13/2024 COMPL ETE BLOOD COUNT W/DIF F MCH 24.6 pg 27.0-3 3.0 low Not Available [address] [place], [address] 06/13/2024 21:04:58 06/13/20 24 06/13/2024 COMPL ETE BLOOD COUNT W/DIF F MCHC 33.5 % 32.0-3 6.0 normal Not Available [address] [place], [address] 06/13/2024 21:04:58 06/13/20 24 06/13/2024 COMPL ETE BLOOD COUNT W/DIF F RDW 13.6 % 11.8-1 4.1 normal Not Available [address] [place], [address] 06/13/2024 21:04:58 06/13/20 24 06/13/2024 COMPL ETE BLOOD COUNT W/DIF F platelet count 260 10_3/ uL 130-40 0 normal Not Available [address] [place], [address] 06/13/2024 21:04:58 06/13/20 24 06/13/2024 COMPL ETE BLOOD COUNT W/DIF F MPV 8.9 fL 8.0-11 .0 normal Not Available [address] [place], [address] 06/13/2024 21:04:58 06/13/20 24 06/13/2024 COMPL ETE BLOOD COUNT W/DIF F neutrophils % 61.9 % Not Available [address] [place], [address] 06/13/2024 21:04:58 06/13/20 24 06/13/2024 COMPL ETE BLOOD COUNT W/DIF F lymphocytes % 26.6 % Not Available [address] [place], [address] 06/13/2024 21:04:58 06/13/20 24 06/13/2024 COMPL ETE BLOOD COUNT W/DIF F monocytes % 8.1 % Not Available [address] [place], [address] 06/13/2024 21:04:58 06/13/20 24 06/13/2024 COMPL ETE BLOOD COUNT W/DIF F eosinophils % 1.1 % Not Available [address] [place], [address] 06/13/2024 21:04:58 06/13/20 24 06/13/2024 COMPL ETE BLOOD COUNT W/DIF F basophils % 0.3 % Not Available [address] [place], [address] 06/13/2024 21:04:58 06/13/20 24 06/13/2024 COMPL ETE BLOOD COUNT W/DIF F immature grans % 2.0 % Not Available Santiago cantu [address] [place], [address] 06/13/2024 21:04:58 06/13/20 24 06/13/2024 COMPL ETE BLOOD COUNT W/DIF F nucleated RBC 0.0 % 0.0-0. 3 normal Not Available [address] [place], [address] 06/13/2024 21:04:58 06/13/20 24 06/13/2024 COMPL ETE BLOOD COUNT W/DIF F absolute neutrophil count 4.13 10_3/ uL 1.2-6. 7 normal Not Available [address] [place], [address] 06/13/2024 21:04:58 06/13/20 24 06/13/2024 COMPL ETE BLOOD COUNT W/DIF F absolute lymphocyte count 1.77 10_3/ uL 1.2-3. 4 normal Not Available [address] [place], [address] 06/13/2024 21:04:58 06/13/20 24 06/13/2024 COMPL ETE BLOOD COUNT W/DIF F absolute monocyte count 0.54 10_3/ uL 0.1-0. 8 normal Not Available [address] [place], [address] 06/13/2024 21:04:58 06/13/20 24 06/13/2024 COMPL ETE BLOOD COUNT W/DIF F absolute eosinophil count 0.07 10_3/ uL 0.0-0. 7 normal Not Available [address] [place], [address] 06/13/2024 21:04:58 06/13/20 24 06/13/2024 COMPL ETE BLOOD COUNT W/DIF F absolute basophil count 0.02 10_3/ uL 0.0-0. 2 normal Not Available [address] [place], [address] 06/13/2024 21:04:58 06/13/20 24 06/13/2024 COMPL ETE BLOOD COUNT W/DIF F diff comment RBC Morph Review ed Not Available [address] [place], [address] 06/13/2024 21:04:58 06/13/20 24 06/13/2024 COMPL ETE BLOOD COUNT W/DIF F RBC morphology See Below Not Available [address] [place] [place], [address] 06/13/2024 21:04:58 06/13/20 24 06/13/2024 COMPL ETE BLOOD COUNT W/DIF F microcytosis 1+ Not Available [address] [place], [address] 06/13/2024 21:04:58 06/13/20 24 06/13/2024 PROTH ROMBI N TIME prothrombin time 11.0 sec 9.1-11 .1 normal Not Available [address] [place], [address] 06/13/2024 21:04:56 06/13/20 24 06/13/2024 PROTH ROMBI N TIME INR 1.1 0.9-1. 1 normal Recom ivon d INR thera peuti c range s for orall y admin ister ed drugs are as follo ws: -Elias dard Inten sity 2.0 to 3.0 -High er Inten sity 3.0 to 4.5 Not Available [address] [place], [address] 06/13/2024 21:04:56 06/28/20 24 06/28/2024 BASIC METAB OLIC PANEL calcium 9.0 mg/dL 8.5-10 .1 normal Not Available [address] [place], [address] 06/28/2024 16:50:30 06/28/20 24 06/28/2024 BASIC METAB OLIC PANEL glucose 82 mg/dL 74-106 normal Not Available Barrie gomez [address] [place], [address] 06/28/2024 16:50:30 06/28/20 24 06/28/2024 BASIC METAB OLIC PANEL BUN 26 mg/dL 7-18 high Not Available Barrie gomez [address] [place], [address] 06/28/2024 16:50:30 06/28/20 24 06/28/2024 BASIC METAB OLIC PANEL creatinine 1.1 mg/dL 0.70-1 .30 normal Not Available [address] [place], [address] 06/28/2024 16:50:30 06/28/20 24 06/28/2024 BASIC METAB OLIC PANEL estimated GFR 90.34 mL/min /1.73M 2 The eGFR is calcu [...] young er-ag ed adult s. Not Available [address] [place], [address] 06/28/2024 16:50:30 06/28/20 24 06/28/2024 BASIC METAB OLIC PANEL sodium 144 mmol/ L 136-14 5 normal Not Available [address] [place], [address] 06/28/2024 16:50:30 06/28/20 24 06/28/2024 BASIC METAB OLIC PANEL potassium 4.0 mmol/ L 3.5-5. 1 normal Not Available [address] [place], [address] 06/28/2024 16:50:30 06/28/20 24 06/28/2024 BASIC METAB OLIC PANEL chloride 107 mmol/ L 98-107 normal Not Available [address] [place], [address] 06/28/2024 16:50:30 06/28/20 24 06/28/2024 BASIC METAB OLIC PANEL CO2 25.0 mmol/ L 21.0-3 2.0 normal Not Available [address] [place], [address] 06/28/2024 16:50:30 06/28/20 24 06/28/2024 BASIC METAB OLIC PANEL anion gap 12.0 mmol/ L 3-11 high Not Available [address] [place], [address] 06/28/2024 16:50:30 07/15/19 25 07/15/2024 SODIU M sodium 141 mmol/ L 136-14 5 normal Not Available [address] [place], [address] 07/16/2024 16:14:24 07/15/19 25 07/15/2024 SODIU M sodium 141 mmol/ L 136-14 5 normal Not Available [address] [place], [address] 07/15/2024 16:16:44 03/21/20 24 08/04/2019 imagi ng/di agnos tic [...] t Name: Miguel Angel Burgos Unit #: [id number] Loc: ER Orderi ng Provid er: Accoun t #: [id number] Status : PRE ER Primar y Care Provid er: Jose More Date of Exam: 02/27 Sex: M : 1989 Age: 33 Exam(s ) PROCED URE INFORM ATION: Exam: CT Head Withou t Contra st Exam date and time: 024 9:37 PM Age: 33 years old Clinic al indica tion: Other: Breakt hrough sz TECHNI QUE: Imagin g protoc ol: Comput ed tomogr aphy of the head withou t contra st. COMPAR BRENDA: CT HEAD WO 024 8:38 AM FINDIN GS: Brain: There is [...] of the extra- axial space along the installation superintendent ior midlin e of the installation superintendent ior fossa presum ably repres ents promin [...] Authen ticate d by: Jaime Ceballos MD. Elbert jacoob:Madeleine Ortega MD Access ion#=[id number] Thom pop By: CC: ------ ------ ------ ------ ------ ------ ------ ------ ------ ------ ------ ------ ---- Dictat ed By: Report s vrad 2136 Transc ribed By: Di Merge 2136 This is privil eged, confid [...] at the addres s above. Thank- you. [facility] [address], [place], [address] 06/14/2024 13:39:40 06/14/2006/14/2024 CT colbyi odalis bui Name: Miguel Angel Burgos Unit #: [id number] Loc: ER Elbert jacobo Provid er: Diego Winchester M.D. Accoun t #: [id number] Status : DEP ER Primar y Care [facility] er: Jose More Date of Exam: 02/27 Sex: M : 1989 Age: 33 Exam(s ) a CT:CT head wo Exam(s ) CT HEAD WO EXAM: CT HEAD WO CLINIC AL HISTOR Y: Yasmeen alberts TECHNI QUE: Imagin g Protoc ol: Axial [...] error, please notify us immedi jimly at [phone] and return the origin al report to us at the addres s above. Thank- you. INTERFACE [facility] [address] [facility] , [place], [address] 06/14/2024 09:01:48 Result Notes None recorded. Problems Name Problem SNOMED Code Status Onset Date Resolution Date Notes Provider Name and Address Organization Details Recorded Time Hyponatr emia 49016977 Active [address], [place], [address] , [facility] 4 12:31:17 Mass lesion of brain 602804349 Active [address], [place], [address] , [facility] 4 17:54:43 Abscess of skin and/or subcutan eous tissue 88790511 Active [address], [place], [address] , [facility]. 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 Active 2016 Problem Code: H47.20; Problem Code Type: ICD-10; Not Available [facility] 3 04:21:52 Gastriti s 0381145 Active 2016 Problem Code: K29.70; Problem Code Type: ICD-10; Not Available [facility] 3 04:21:52 Urinary incontin ence 862361228 Active 2016 Problem Code: R32; Problem Code Type: ICD-10; Not Available [facility] 3 04:21:52 Senile osteopor osis 57853004 Active 201602/22/20 21 - Comments only - [...] M81.0; Problem Code Type: ICD-10; Not Available [facility] 3 04:21:52 Pure hypergly ceridemi a 509680992 Active 201602/27/20 22 - Comments only - Ren Vaz MD - tolerati ng statin. However with elevated LFTs could consider cutting statin dose to see if helps LFTs. Problem Code: E78.1; Problem Code Type: ICD-10; Not Available [facility] 3 04:21:53 History of benign neoplasm of brain 405383816 Active 2016 Problem Code: Z86.011; Problem Code Type: ICD-10; Not Available [facility] 3 04:21:53 Insomnia 690026914 Active 201612/09/19 19 - Deterior ated - Subha Colon LICENSED MASSAGE THERAPIST - Currentl y on trazodon e, not effectiv e. See above. 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 Cycloben zaprine no longer effectiv e. Will change to baclofen 10mg TID. media analytics manager will call in 1-2 weeks to report effectiv eness. Pain may be influenc ing increase d agitatio n and poor sleep. Problem Code: M24.50; Problem Code Type: ICD-10; Not Available [facility] 3 04:21:53 Amnesia 13850270 Active 2016 Problem Code: R41.3; Problem Code Type: ICD-10; Not Available [facility] 3 04:21:53 Hemipleg ia 12009426 Active 201602/22/20 21 - Comments only - Ren Vaz MD - Encourag ing increase in activty. I agree with PT. Problem Code: G81.90; Problem Code Type: ICD-10; Not Available [facility] 3 04:21:54 Red blood cell finding 391628552 Active 2017 Problem Code: R71.8; Problem Code Type: ICD-10; Not Available [facility] 3 04:21:54 Retentio n of urine 547786178 Active 201805/18/20 19 - Comments only - Subha Colon APRN - Suscepti ble to UTIs. They will return urine sample for testing. Problem Code: R33.9; Problem Code Type: ICD-10; Not Available [facility] 3 04:21:54 Restless ness and agitatio n 597769291 Active 2018 Problem Code: R45.1; Problem Code Type: ICD-10; Not Available [facility] 3 04:21:54 Seizure 45588494 Active 2018 Problem Code: R56.9; Problem Code Type: ICD-10; Not Available [facility] 3 04:21:54 Dyspnea 110554841 Completed 201806/01/2019 Problem Code: R06.02; Problem Code Type: ICD-10; Not Available [facility] 3 04:21:54 Acute upper respirat ory infectio n 84291547 Completed 201806/01/2019 05/18/20 19 - Comments only - Subha Colon LICENSED MASSAGE THERAPIST - With low-grad e fever, producti ve cough, wheezing . Pt is quite suscepti ble to both respirat ory and urinary tract infectio ns. Will start doxycycl ine to cover for possible pneumoni a. Advised to increase use of nebulize r to TID. Problem Code: J06.9; Problem Code Type: ICD-10; Not Available [facility] 3 04:21:55 Steatosi s of liver 583844544 Active 201903/03/20 23 - Comments only - Ren Vaz MD - Improved last year with weight loss. REcheck CBC/CMP with labs Problem Code: K76.0; Problem Code Type: ICD-10; Not Available [facility] 3 04:21:55 Adult health [...] Z00.00; Problem Code Type: ICD-10; Not Available [facility] 3 04:21:55 Bradycar hossein 20378472 Completed 201909/01/2019 08/25/19 20 - Comments only - Ren Vaz MD - Resolved after stopping metoprol ol. BP still okay, no hard indicati on for metoprol ol, so continue off this medicati on. Problem Code: R00.1; Problem Code Type: ICD-10; Not Available [facility] 3 04:21:55 Urticari a 522654807 Active 201908/14/19 21 - Comments only - Ren Vaz MD - irmpoved . continue higher dose H2 gui for now. Problem Code: L50.9; Problem Code Type: ICD-10; Not Available [facility] 3 04:21:55 Localize d eruption of skin 163930439 Completed 201904/26/2020 04/05/20 20 - Comments only - Ricarda Sanchez CAGE UNLOADER - Unclear etiology : possibly contact urticari [...] R21; Problem Code Type: ICD-10; Not Available [facility] 3 04:21:56 Anemia 928098191 Active 202008/20/19 22 - Comments only - Ren Vaz MD - This has been a stable chronic issue. We discusse d I iron stores actually normal, low TIBC suggests chronic disease cause. Continue to follow. Problem Code: D64.9; Problem Code Type: ICD-10; Not Available [facility] 3 04:21:56 Hypo-osm olality and or hyponatr emia 548062573 Active 202002/22/20 21 - Comments only - Ren Vaz MD - Doing well on fluid restrict ion, continue . Problem Code: E87.1; Problem Code Type: ICD-10; Not Available [facility] 3 04:21:56 Obesity 016627006 Active 2020 Problem Code: E66.9; Problem Code Type: ICD-10; Not Available [facility] 3 04:21:56 Furuncle of left axilla 77013721053 505948 Active 202003/14/20 21 - Comments only - [...] L02.422; Problem Code Type: ICD-10; Not Available [facility] 3 04:21:56 Trichoti manishaia 28825072 Active 202102/27/20 22 - Comments only - Ren Vaz MD - Discusse d skin care, defer medicati on adjustme nts to psych Problem Code: F63.3; Problem Code Type: ICD-10; Not Available [facility] 3 04:21:56 Diabetes insipidu s 65187871 Active 201605/24/20 19 - Comments only - Subha Colon APRN - Will recheck sodium level. Problem Code: E23.2; Problem Code Type: ICD-10; Not Available [facility] 3 04:21:57 Hypopitu itarism 63460981 Active 2016 Problem Code: E23.0; Problem Code Type: ICD-10; Not Available [facility] 3 04:21:57 Hypothyr oidism 98291793 Active 201602/22/20 21 - Comments only - Ren Vaz MD - FT4 at goal, continue current supplume ntation Problem Code: E03.8; Problem Code Type: ICD-10; Not Available [facility] 3 04:21:57 History and physical examinat ion, administ rative Completed 201807/09/2019 Problem Code: Z02.89; Problem Code Type: ICD-10; Not Available [facility] 3 04:21:58 Disorder of eye 602234144 Completed 201804/05/2019 Problem Code: H44.89; Problem Code Type: ICD-10; Not Available [facility] 3 04:21:59 Pain of left knee joint 02276455387 4107 Completed 201707/09/2019 Problem Code: M25.562; Problem Code Type: ICD-10; Not Available [facility] 3 04:21:59 Bleeding 896393280 Completed 202002/21/2021 Problem Code: R58; Problem Code Type: ICD-10; Not Available [facility] 3 04:21:59 Fever 286753033 Completed 201804/05/2019 Problem Code: R50.9; Problem Code Type: ICD-10; Not Available [facility] 3 04:21:59 Family history of diabetes mellitus 516676696 Completed 201607/09/2019 Problem Code: Z83.3; Problem Code Type: ICD-10; Not Available [facility] 3 04:22:00 Fever 420909289 Completed 201805/24/2019 Problem Code: R50.9; Problem Code Type: ICD-10; Not Available [facility] 3 04:22:00 Gastroes ophageal reflux disease without esophagi tis 965765857 Completed 201604/02/2023 Problem Code: K21.9; Problem Code Type: ICD-10; Not Available [facility] 3 04:22:00 Wheezing 81281163 Completed 201709/18/2018 Problem Code: R06.2; Problem Code Type: ICD-10; Not Available [facility] 3 04:22:00 High enzyme level in serum 879487495 Completed 201904/02/2023 02/27/20 22 - Comments only [...] Code Type: ICD-10; Not Available [facility] 3 04:22:01 Body mass index 30+ - obesity 326733936 Completed 202004/02/2023 Problem Code: Z68.34; Problem Code Type: ICD-10; Not Available [facility] 3 04:22:01 Disorder of intestin e 84705097 Completed 202008/14/2020 Problem Code: K63.9; Problem Code Type: ICD-10; Not Available [facility] 3 04:22:01 Screenin g for disorder Completed 201809/18/2018 Problem Code: Z13.9; Problem Code Type: ICD-10; Not Available [facility] 3 04:22:01 Spasm 69934877 Completed 201704/02/2023 08/25/19 20 - Comments only - Ren Vaz MD - Ongoing problem since CVA. Has neuro consult in october to consiide botox. For now try higher dose lorazepa m along with baclofen . Problem Code: R25.2; Problem Code Type: ICD-10; Not Available [facility] 3 04:22:02 Pain of right knee joint 62937449359 4100 Completed 201704/30/2018 Problem Code: M25.561; Problem Code Type: ICD-10; Not Available [facility] 3 04:22:02 Cough 16224961 Completed 201709/08/2019 Problem Code: R05; Problem Code Type: ICD-10; Not Available [facility] 3 04:22:02 Iron deficien cy anemia 17648714 Completed 201704/02/2023 Problem Code: D50.8; Problem Code Type: ICD-10; [address], [place], [address] , [facility]. 4 09:14:59 Counseli odalis Completed 201812/08/2018 Problem Code: Z71.89; Problem Code Type: ICD-10; Not Available [facility] 3 04:22:03 Disorder of tooth developm ent 420368827 Completed 201808/14/2020 Problem Code: K00.9; Problem Code Type: ICD-10; Not Available [facility] 3 04:22:03 Hypocalc emia 6466507 Completed 201910/25/2019 Problem Code: E83.51; Problem Code Type: ICD-10; Not Available [facility] 3 04:22:03 Hyperosm olality and or hypernat remia 714306437 Completed 201908/14/2020 Problem Code: E87.0; Problem Code Type: ICD-10; Not Available [facility] 3 04:22:04 Testicul ar hypofunc tion 601850346 Completed 201604/02/2023 Problem Code: E29.1; Problem Code Type: ICD-10; Not Available [facility] 3 04:22:04 Seasonal allergic rhinitis 803000926 Completed 201904/02/2023 10/25/19 20 - Comments only - Ren Vaz MD - try H1 block Problem Code: J30.2; Problem Code Type: ICD-10; Not Available [facility] 3 04:22:05 Wheezing 35098139 Completed 201805/24/2019 Problem Code: R06.2; Problem Code Type: ICD-10; Not Available [facility] 3 04:22:05 Seizure 66692511 Completed 201607/09/2019 Problem Code: R56.9; Problem Code Type: ICD-10; Not Available [facility] 3 04:22:05 Chronic excoriat ion of skin 557747771 Active [address], [place], [address] , [facility]. 4 09:12:56 Non-alco holic fatty liver disease Active 2023 [address], [facility] [address] , [facility] 4 09:14:30 Iron deficien cy anemia 36709396 Active 2023 Problem Code: D50.8; Problem Code Type: ICD-10; NAKIA SANTOS [address], [place] [address] , [facility] 4 09:14:59 Pruritic disorder 299586486 Active 2023 [address], [address] 4 09:21:10 Seizure disorder 322653064 Active 2023 [address], [place] [address] , [facility] 4 10:59:32 Finding of frequenc y of urinatio n [id number] Active 2023 NAKIA SANTOS [address], [place] [address] , [facility] 4 11:23:00 Notes:*Problem Name: Blindne ss - both eyes *Problem Status: active *Comments: *Problem Code: H54.0 *Problem Code Type: ICD-10 *Note Date: 11/11/2016 Problem Notes None recorded. Procedures Surgical History None recorded. Imaging Results Imaging Date Name Status LastModified by [facility] Details LastModified Time 08/04/2019 imaging/diag nostic result completed Information not available 03/21/2024 21:46:55 08/04/2019 imaging/diag nostic result completed Information not available 03/21/2024 21:46:56 08/07/2019 imaging/diag nostic result completed Information not available 03/21/2024 21:46:56 08/07/2019 imaging/diag nostic result completed Information not available 03/21/2024 21:46:57 08/07/2019 imaging/diag nostic result completed Information not available 03/21/2024 21:46:58 08/08/2019 imaging/diag nostic result completed Information not available 03/21/2024 21:46:59 08/08/2019 imaging/diag nostic result completed Information not available 03/21/2024 21:47:00 03/21/2019 imaging/diag nostic result completed Information not available 03/21/2024 21:47:01 03/21/2019 imaging/diag nostic result completed Information not available 03/21/2024 21:47:02 03/27/2019 imaging/diag nostic result completed Information not available 03/21/2024 21:47:02 08/19/2019 imaging/diag nostic result completed Information not available 03/21/2024 21:47:03 11/17/2020 imaging/diag nostic result completed Information not available 03/21/2024 21:47:04 03/21/2019 imaging/diag nostic result completed Information not available 03/21/2024 21:48:19 08/05/2019 imaging/diag nostic result completed Information not available 03/21/2024 21:48:20 08/08/2019 imaging/diag nostic result completed Information not available 03/21/2024 21:48:21 08/08/2019 imaging/diag nostic result completed Information not available 03/21/2024 21:48:22 09/08/2020 imaging/diag nostic result completed Information not available 03/21/2024 21:48:25 09/13/2021 US, abdomen completed Information n ot available 03/21/2024 21:48:58 08/05/2019 imaging/diag nostic result completed Information not available 03/21/2024 21:53:32 08/08/2019 imaging/diag nostic result completed Information not available 03/21/2024 21:53:33 08/08/2019 imaging/diag nostic result completed Information not available 03/21/2024 21:53:34 08/08/2019 imaging/diag nostic result completed Information not available 03/21/2024 21:53:35 08/18/2019 imaging/diag nostic result completed Information not available 03/21/2024 21:53:36 08/20/2019 imaging/diag nostic result completed Information not available 03/21/2024 21:53:37 09/09/2018 imaging/diag nostic result completed Information not available 03/21/2024 21:53:38 09/11/2018 imaging/diag nostic result completed Information not available 03/21/2024 21:53:39 03/21/2019 imaging/diag nostic result completed Information not available 03/21/2024 21:53:40 03/28/2019 imaging/diag nostic result completed Information not available 03/21/2024 21:53:41 03/24/2019 imaging/diag nostic result completed Information not available 03/21/2024 21:53:42 07/10/2020 imaging/diag nostic result completed Information not available 03/21/2024 21:53:42 11/18/2020 imaging/diag nostic result completed Information not available 03/21/2024 21:53:43 06/13/2024 vrad report completed [email or web address] [address] [place], [address] 06/14/2024 13:39:40 06/14/2024 CT imaging report completed INTERFACE [address] [place], [address] 06/14/2024 09:01:48 Procedure Notes None recorded. Medical Equipment None Reported. Allergies Allergen ID Allergen Name Allergen Category Reaction Reaction Severity Criticality Documentation Date Start Date Code Code System Note Provider Name and Address Organization Details Recorded Time 91850 Lopid medicatio n Not available Not available Not available 05/04/2024 9 RxNorm MALOU Martinez, [place] - [facility]. 10:58:41 Medications Name Sig Start Date Stop [...] active Not Available Not Available Not Avai labmerari Vitals Date Recorded Body height Body mass index (BMI) Body weight Body temperature Oxygen saturation Oxygen saturation in Arterial blood by Pulse oximetry Heart rate Systolic blood pressure Diastolic blood pressure Provider Name and Address Organization Details Last Updated DateTime 4 167.157 4 cm 33.5 kg/m2 92105.1 8 g 97.7 [degF] 96 % 96 % 83 /min 118 mm[Hg] 82 mm[Hg] KRISTYN SINGH MA [facility] 4 11:07:26 Date Recorded Body height Body mass index (BMI) Body weight Body temperature Oxygen saturation Oxygen saturation in Arterial blood by Pulse oximetry Heart rate Respiratory rate Systolic blood pressure Diastolic blood pressure Provider Name and Address Organization Details Last Updated DateTime 4 167.157 4 cm 33.3 kg/m2 67724.4 4 g 97.7 [degF] 97 % 97 % 92 /min 18 /min 110 mm[Hg] 76 mm[Hg] Ashley England MA [facility], [facility] 4 10:58:12 Date Recorded Body height Body mass index (BMI) Body weight Body temperature Oxygen saturation Oxygen saturation in Arterial blood by Pulse oximetry Heart rate Systolic blood pressure Diastolic blood pressure Provider Name and Address Organization Details Last Updated DateTime 4 167.157 4 cm 34.3 kg/m2 77770.9 9 g 97.2 [degF] 97 % 97 % 80 /min 128 mm[Hg] 70 mm[Hg] KRISTYN SINGH MA [facility] 4 11:35:36 Date Recorded Body height Body mass index (BMI) Body weight Body temperature Oxygen saturation Oxygen saturation in Arterial blood by Pulse oximetry Heart rate Systolic blood pressure Diastolic blood pressure Provider Name and Address Organization Details Last Updated DateTime 5 167.157 4 cm 31.5 kg/m2 00257.6 4 g 97.5 [degF] 100 % 100 % 96 /min 106 mm[Hg] 68 mm[Hg] KRISTYN SINGH MA [facility], [facility]. 5 10:00:19 Date Recorded Body height Body mass index (BMI) Body weight Body temperature Oxygen saturation Oxygen saturation in Arterial blood by Pulse oximetry Heart rate Systolic blood pressure Diastolic blood pressure Provider Name and Address Organization Details Last Updated DateTime 5 167.157 4 cm 35.1 kg/m2 36107.3 9 g 97.3 [degF] 100 % 100 % 92 /min 132 mm[Hg] 72 mm[Hg] KRISTYN SINGH MA [facility] 5 10:30:05 Social History Question Answer Notes LastModified by Organizat ion Details LastModified Time Tobacco Smoking Status Never Smoker Ashley England MA [facility], [facility] 05/04/2024 11:00:43 What Was The Date Of Your Most Recent Tobacco Screening? 05/04/2024 [email or web address] Information not available 05/04/2024 Has Tobacco Cessation Counseling Been Provided? Yes Information not available 05/04/2024 On What Date Was Tobacco Cessation Counseling Provided? 05/04/2024 [email or web address] Information not available 05/04/2024 Sex: Male Functional Status None recorded. Mental Status None recorded. Family History Nothing Reported Notes:*Problem: Mom had trever l failure Diabetes in the family Medical History No medical history recorded. Immunizations Vaccine Type Date Status Note Provider Nam e and Address Organization Details Recorded Time MMR 0 completed Not Available [facility] 05/16/2023 04:39:45 MMR 2 completed Not Available [facility] 05/16/2023 04:39:46 Tdap 1 completed Not Available [facility] 05/16/2023 04:39:47 Tdap 1 completed Not Available [facility] 05/16/2023 04:39:48 Influenza, split virus, quadrivalent, PF 9 completed Not Available [facility] 05/16/2023 04:39:48 Hib, unspecified formulation 1 completed [facility] 05/16/[facility]23 04:39:48 Hib, unspecified formulation 1 completed Not Available [facility] 05/16/2023 04:39:49 Hib, unspecified formulation 2 completed Not Available [facility] 05/16/2023 04:39:49 Hib, unspecified formulation 1 completed Not Available [facility] 05/16/2023 04:39:49 DTaP 1 completed Not Available [facility] 05/16/2023 04:39:50 DTaP 1 completed Not Available [facility] 05/16/2023 04:39:50 DTaP 6 completed Not Available [facility] 05/16/2023 04:39:50 DTaP 1 completed Not Available [facility] 05/16/2023 04:39:50 DTaP 2 completed Not Available [facility] 05/16/2023 04:39:50 COVID-19, mRNA, LNP-S, PF, 100 mcg/0.5mL dose or 50 mcg/0.25mL dose 1 completed Not Available [facility] 05/16/2023 04:39:50 COVID-19, mRNA, LNP-S, PF, 100 mcg/0.5mL dose or 50 mcg/0.25mL dose 2 completed Not Available [facility] 05/16/2023 04:39:51 SARS-COV-2 (COVID-19) vaccine, UNSPECIFIED 1 completed Not Available [facility] 05/16/2023 04:39:52 SARS-COV-2 (COVID-19) vaccine, UNSPECIFIED 1 completed Not Available [facility] 05/16/2023 04:39:52 Hep B, unspecified formulation 3 completed Not Available [facility] 05/16/2023 04:39:52 Hep B, unspecified formulation 3 completed Not Available [facility] 05/16/2023 04:39:52 Hep B, unspecified formulation 3 completed Not Available [facility] 05/16/2023 04:39:52 influenza, unspecified formulation 4 completed Not Available [facility] 05/16/2023 04:39:53 polio, unspecified formulation 1 completed Not Available [facility] 05/16/2023 04:39:53 polio, unspecified formulation 1 completed Not Available [facility] 05/16/2023 04:39:54 polio, unspecified formulation 6 completed Not Available [facility] 05/16/2023 04:39:54 polio, unspecified formulation 1 completed Not Available [facility] 05/16/2023 04:39:54 polio, unspecified formulation 2 completed Not Available [facility] 05/16/2023 04:39:54 rabies, unspecified formulation 5 completed Not Available [facility] 05/16/2023 04:39:55 rabies, unspecified formulation 5 completed Not Available [facility] 05/16/2023 04:39:55 Influenza, split virus, trivalent, PF 4 completed NAKIA SANTOS [address], [place], [address], [facility] 06/29/2024 17:51:39 Influenza, split virus, quadrivalent, PF 3 completed Not Available [facility] 07/18/2023 05:33:06 COVID-19, mRNA, LNP-S, PF, kota-sucrose, 30 mcg/0.3 mL 3 completed Not Available [facility] 07/18/2023 05:33:07 Past Encounters Encounter ID Performer Location Encounter Start Date Encounter Closed Date Diagnosis/Indication Diagnosis SNOMED-CT Code Diagnosis ICD10 Code Diagnosis Note [id number] ANKIA SANTOS [facility] [address] [place] [address] 09/18/2023 08:30:46 09/18/2023 09:43:31 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 actively picking at skin with frequency. Advised covering during day when supervised and removing at night as I'm informed he's tried to eat band aids before at night. Chronic ex coriation of skin 030697005 T14.8XXA We will Rx pplx mupiricin in case of any signs of infection related to chronic picking at scabs. Non-alcoho lic fatty liver disease 3036125846 K76.0 Pt. with evidence on Ultrasound s which have been on yearly surveillan ce. We will check labs for liver health/ble eding risk as below in iron deficiency anemia orders. Iron defic iency anemia 67649668 D50.9 Will check labs as pt. picking leads to bleeding that seems a bit out of proportion to the scabs he is picking off. Pruritic disorder 345160 002 L29.9 We will make up to 2 tablets avialable at night of hydroxyzin e for pruritis. [id number] NAKIA SANTOS [facility] [address] [place] [address] 03/05/2024 10:55:01 03/05/2024 12:03:04 Finding of frequency of urination 655410514 R35.0 Will check urine. Pt. unable to urinate in office so cup given and caregiver will drop off. Restlessne ss and agitation 889764525 R45.1 We will increase his quetiapine from 150 mg ER qday to 200mg ER qday. Adult heal th examination 261765247 Z00.00 Hyperlipid emia screening 849185124 Z13.220 Hypothyroidism 46390742 E03.9 [id number] LAURIE RODGERS [address] [place] [address] 05/04/2024 09:55:01 05/04/2024 11:28:26 Cellulitis of right lower limb 2792102999 3311084 L03.115 33 year old male with onset [...] area is amenable to incision and drainage. [id number] NAKIA SANTOS [facility] [address] [place] [address] 06/28/2024 11:23:42 06/28/2024 12:54:45 Hyponatremia 11534094 E87.1 will recheck this lab. Currently following 2.5 L fluid restrictio n. No signs of excess fluid status on exam. Pt. at baseline from mental status viewpoint. Medlist reconciled . Active or passive immunization 469490118 Z23 Mass lesion of brain 422 084419 R22.0 Pt. to f/u with neurosurge ry for evolving 3.5cm mass [id number] NAKIA SANTOS [facility] [address] [place] [address] 07/15/2024 09:44:29 07/15/2024 10:32:19 Abscess of skin and/or subcutaneous tissue 62073984 L02.91 Pt. with abscess, about 5x10 cm along eliptical axis of left posterolat eral thigh, warm, ttp. Will start antibiotic s given pt. propensity to pick and current discomfort . Referred to wound care clinic for this and the other smaller ulceration on his right upper thigh. [id number] [facility] [address] [place] [address] 07/22/2024 10:14:28 07/22/2024 11:15:42 Abscess of skin and/or subcutaneous tissue 63107423 L02.91 Abscess area is improved with less redness circumfere ntially. Chronic ex coriation of skin 919706136 T14.8XXA We will Rx pplx mupiricin in case of any signs of infection related to chronic picking at scabs. Hyponatremia 48376557 E8 7.1 will recheck this lab. Currently following 2.5 L fluid restrictio n. No signs of excess fluid status on exam. Pt. at baseline from mental status viewpoint. Medlist reconciled . Health Concerns Section Related Observation LastModified by Organization Detai ls LastModified Time None Recorded Concern Status LastModified by Organization Details LastModified Time None Recorded Advance Directives Directive None Recorded Payers Encounter Date Sequence Insurance Name Policy Number Policy Soliman Covered Member ID Soliman Member ID Guarantor Name 03/05/2024 1 [facility] (MEDICAID) Miguel Angel Pop Barrup [id number] Migule Angel D Barrup 05/04/2024 1 [facility] (MEDICAID) Miguel Angel D Barrup [id number] Miguel Angel D Barrup 06/28/2024 1 [facility] (MEDICAID) Miguel Angel D Barrup [id number] Miguel Angel D Barrup 07/15/2024 1 [facility] (MEDICAID) Miguel Angel D Barrup [id number] Miguel Angel D Barrup Notes Date Note Type Note Provider Name and Address Organization Details Recorded Time 03/05/2024 text/html Pt. 33-M, with P MH notable [...] cough, wheezing.Cardiac: Pt. denies any chest pain,: thread singer endorses baseline of frequencyMSK: Pt. denies any MSK complaints.Skin:Skin improved over prior per caregiver reportNeuro: No loss of function apparent to caregiver in ambulation status.Endocrine: Caregiver denies new pattern of cold or hot manifestation in patientHematologic: No frequent bleeding, epistaxis, easy bruisability reported by caregiver. NAKIA SANTOS Dr, [place], [address], [facility]. 03/05/2024 12:22:56 05/04/2024 text/html Patient with pos sible abscess/boil to posterior R thigh, first noticed 2 nights ago, has become larger is more tender.Does have a small head with no visible drainage per caregivers at [facility].Has had no fevers.Has had past skin infection to axilla. No recent antibiotic use. No history of drug resistant skin infections. LAURIE RODGERS [address], [place], [address], [facility]. 05/04/2024 16:17:55 06/28/2024 text/html Pt, 34-M, here f or follow up of hyponatremia, be has history of DI, hypopituitarism, seizure, had been on fluid restriction of 3.5 L/day prior, pt. possibly getting to much prior to being seen 06/14/2024. Fluid restriction now at 2.5 L. We are to recheck sodium today at this level of sodium restriction. He has endocrinology f/u . Enhancing brain mass: Has a neurosurgery evaluaiton for 3.5 cm schwanoma vs meningioma in mid July. Not at all clear that he would be a surgical candidate though. NAKIA SANTOS [address], [place], [address], [facility]. 06/29/2024 17:55:30 07/15/2024 text/html Pt. 34-M, hx of chronic skin picking due to developmental disorder, with area of red, warm, tender soreness on left leg/thigh that has been present and getting worse times 6 days. He also has a smaller sore on his right upper thick, almost at his buttock that he's been using triple antibiotic ointment on for mgmt. He chronically picks at skin as part of his development disability. NAKIA SANTOS [address], [place], [address], [facility]. 07/15/2024 10:33:24
--- OUTSIDE RECORDS SUMMARY | 2024-07-22 13:37 | XMS_ITS | Encounter Summary ---
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) Procedures Wilder Clark, DO [address] [place] [address] Phone: tel: fax: Referral ID Status Reason Start Date Expiration Date V isits Requested Visits Authorized [id number] New Request 07/06/2024 4 4 Encounter Details Date Type Department Care Team (Latest Contact Info) Description 07/06/2024 14:30 EST Phlebotomy Only [facility] Endocrinology - [facility] [address] [place] [address] Phlebotomy, [facility] 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HCC-CMS); Secondary hypothyroidism; 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HCC-CMS) Social History Tobacco Use Types Packs/Day [...] documented in this encounter Progress Notes * Leo Chicas MA - 07/06/2024 1430 EST A venous blood collection was performed today via venipuncture on this patient. I was supervised by Torito Littlejohn M.D. who was present and immediately available in the office suite. LEO CHICAS MA 07/06/2024 14:29 documented in this encounter Plan of Treatment Upcoming Encounters Date Type Department Care Team (Late st Contact Info) Description 10/01/2024 13:[address] [facility] Endocrinology - [address] [address] Wilder Zaidi, [address] [place] [address] documented as of this encounter Procedures Procedure Name Priority Date/Time Associated Diagnosis Comments T4 FREE Routine 07/06/2024 14:44 EST Secondary hypothyroidism BASIC METABOLIC PANEL (BMP) Routine 07/06/2024 14:44 EST 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HCC-CMS) documented in this encounter Results * T4 FREE (07/06/2024 14:44 EST) T4, Free 1.4 0.8 - 2.2 ng/dL 07/06/2024 18:52 [facility] Blood VENOUS BLOOD / Unknown Venipuncture / Unknown 07/06/2024 14:44 EST 07/06/2024 14:45 EST Wilder Zaidi DO CHEMISTRY & BLOOD GAS ORDERABLES Final Result [facility] [address] [place] [address] * BASIC METABOLIC PANEL (BMP) (07/06/2024 14:44 EST) Sodium 142 136 - 145 mmol/L 07/06/2024 18:31 [facility] Potassium 4.3 3.5 - 5.0 mmol/L 07/06/2024 18:31 [facility] Chloride 107 96 - 110 mmol/L 07/06/2024 18:31 [facility] CO2 Total 22 22 - 32 mmol/L 07/06/2024 18:31 [facility] Anion Gap 13 5 - 14 mmol/L 07/06/2024 18:31 [facility] Glucose 87 70 - 99 mg/dl 07/06/2024 18:31 [facility] Calcium 9.2 8.5 - 10.5 mg/dL 07/06/2024 18:31 [facility] BUN 17 10 - 26 mg/dL 07/06/2024 18:31 [facility] Creatinine 0.95 0.66 - 1.25 mg/dL 07/06/2024 18:31 [facility] eGFR 108 >60 mL/min/1.73 m2 07/06/2024 18:31 [facility] Blood VENOUS BLOOD / Unknown Venipuncture / Unknown 07/06/2024 14:44 EST 07/06/2024 14:45 EST Wilder Zaidi DO CHEMISTRY & BLOOD GAS ORDERABLES Final Result [facility] [address] [place] [address] documented in this encounter Visit Diagnoses Diagnosis 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HCC-CMS) Diabetes insipidus Secondary hypothyroidism Other specified acquired hypothyroidism 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HCC-CMS) Panhypopituitarism documented in this encounter Care Teams Metal Off Bearer Relationship Specialty Start Date End Date Ren Vaz MD [address] [facility] [address] PCP - General 09/30/18 documented as of this encounter
--- OUTSIDE RECORDS SUMMARY | 2024-07-22 13:37 | XMS_ITS | Encounter Summary ---
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) Procedures SODIUM Wilder Zaidi DO [address] [facility] [address] [place] [address] Phone: tel: fax: Referral ID Status Reason Start Date Expiration Date V isits Requested Visits Authorized [id number] New Request 07/06/2024 4 4 Reason for Visit * Reason Comments Adrenal Gland Problem Encounter Details Date Type Department Care Team (Latest Contact Info) Description 07/06/2024 13:40 EST Office Visit [facility] - [facility] [address] [place] [address] Wilder Ziadi DO [address] [facility] [address] [place] [address] 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); History of pituitary surgery; Secondary adrenal insufficiency (HCC-CMS); 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HCC-CMS); Craniopharyngioma (HCC-CMS); 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); Secondary hypothyroidism Social History Tobacco Use Types [...] EST Pulse 84 07/06/2024 1340 EST Temperature - - Respiratory Rate - - Oxygen Saturation - - Inhaled Oxygen Concentration - - Weight 96.6 kg (213 lb) 07/06/2024 1340 EST Height 170.2 cm (5' 7.01) 07/06/2024 1340 EST Body Mass Index 33.35 07/06/2024 1340 EST documented in this encounter Functional Status [...] * Patient Instructions* Wilder Zaidi DO - 07/06/2024 13:40 EST Increase fluid restriction to 3.0 Liters per day Recheck sodium in one week Follow-up in 3 months [email or web address] documented in this encounter Progress Notes * Wilder Zaidi, - 07/06/2024 1340 EST SUBJECTIVE: Mr Miguel Angel Burgos is a 34-year-old male who returns to the endocrine clinic today for 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 He is accompanied by his legal guardian Bettina and a civil rights representative from his senior care named Ladonna. Miguel Angel is currently living in a senior care where his medications are distributed to him and they maintain a strict fluid restriction. Patient has been followed by Dr. Littlejohn but would like to switch back to this provider. I have been taking care of this provider for many years up until the pandemic where he seemed to somehow get off my schedule. Unfortunately, Miguel Angel was hospitalized at [facility] from June 14, 2024 June 21, 2024 with a seizure secondary to hyponatremia which was believed to be secondary to excessive free water intake. With regards to his diabetes insipidus, he is currently on 0.1 mg of DDAVP in the a.m. and 0.15 mg in the evening. From review with the staff and his sister today does not sound like he has significant polyuria or nocturia. He does asked the staff to go to the bathroom all the time but oftentimes will not go. The staff does notice that his urine has become more darker recently. When he was discharged from the hospital he reduced his fluid restriction from 3.5 L/day to 2.5 L/day. He had a sodium at time of discharge on 06/21/2024 that was 141 and the recent sodium done on 1223 that was 143. As noted above he is currently on 2.5 L/day fluid restriction but were goingto make alterations that can be found in the assessment and plan section below. With regards to his secondary adrenal insufficiency, [...] and when they would stress dose steroids. With regards to his secondary hypogonadism, patient is no longer on treatment. This was discontinued in 2019. Please see my previous notes for full details. He was only on a low-dose whenever able toget his testosterone levels into the desired range or even into the normal range. We are doing thismostly to try to improve his overall mood and bone health although with his recent DEXA scan and subsequent initiation of Fosamax is really no need to use even low-dose testosterone. Testosterone in the past has caused significant behavioral issues so I do not think the risk-benefit is appropriate at this time. His sister agrees with this assessment at today's visit. With regards to his secondary hypothyroidism, he has no significant changes in his bowels. He does not appear to have any temperature intolerance, although it is difficult to tell in this patient. Hedoes not answer those type of questions. He is currently on levothyroxine daily (200 mcg). They give it to him first thing in the morning on an empty stomach. He denies palpitations. PAST MEDICAL HISTORY: Reviewed as documented in electronic medical record. MEDICATIONS: Reviewed as documented in electronic medical record. ALLERGIES: Reviewed as documented in electronic medical record. OBJECTIVE: Physical exam: Ht 170.2 cm (67.01) Wt 96.6 kg (213 lb) BMI 33.35 kg/m?? . In general, patient is a 34-year-old male in no acute distress. HEENT: Eyes: There does not appear to be any lid lag or periorbital edema noted. Mouth: Mucous membranes moist and pink in color. No oral lesionsseen. Dentition appears in good repair. No oral thrush. Neck is supple without adenopathy. No JVD or carotid bruits appreciated. Respiratory: Lungs are clear to auscultation bilaterally. Cardiovascular: Heart is regular without murmurs, rubs, or gallops. GI: Abdomen is soft with good bowel sounds in all 4 quadrants. Extremities: No clubbing, cyanosis or edema. Strength is generally intact to gross testing with out any asymmetry or deficiencies. Integument: There are some areas of picking withappropriate scab formation in his left upper arm close to the area of his axilla. There is no evidence of infection. Psych: The patient was much more interactive at today's visit with this provider. Mood seems stable. LABORATORY DATA: 1. Labs drawn at time of discharge on 06/21/2024 at [facility] showed sodium stable at 141 ASSESSMENT: 1. 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 a. 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 Miguel Angel appears to be clinically euvolemic today. Continue on his current dose of DDAVP. Will increase his fluid restriction from 2.5 to 3.0 L/day given sodium in the high end of normal and subsequent darkness of urine described by staff. Wewill check sodium today to make sure it is stable. Will also check sodium weekly on his new fluid were restriction for the next 4 weeks. Once stable can extend out evaluation. Call with any questionsor concerns. We will review his most recent sodium that is drawn today. b. Secondary hypothyroidism. Appears clinically and biochemically euthyroid. Continue current dose of levothyroxine. May need to watch for over replacement if his weight decreases. We will repeat free T4 today. c. Secondary adrenal insufficiency. Patient is currently on a stable dose of hydrocortisone. His weight has been stable. He does not appear to have any symptoms of over or under replacement of his steroids. We discussed stress dosing in times of illness. They also have injectable steroids at home if unable to tolerate his oral medications. d. Secondary hypogonadism. Will continue off treatment as discussed above e. Growth hormone deficiency. Not currently on replacement. 2. Brain lesion found on MRI as part of workup at [facility] during recent admission. There is discussion regarding spinal node versus meningioma. Patient has upcoming appointment with neurosurgery at [facility] in July 2024. 3. Osteoporosis. Patient had a DEXA scan performed on 10/03/2023 at [facility] in [place], [place]. Patient was found to have a Z-score and a T-score that was identical -3.7. Patient was started on once weekly Fosamax by Dr. Littlejohn. He also takes calcium supplementation. May need to consider a one-time metabolic bone clinic consultation given the multitudes of medications that are currently available for this young man with a low T and Z-score currently onFosamax. PLAN: 1. Continue DDAVP at 0.1 mg in the morning and 0.15 mg in the evening 2. Continue levothyroxine 200 mcg daily 3. Continue Cortef 20 mg in the morning and 10 mg in the evening 4. Stress dose steroids as needed 5. Staff member and sister were again reminded of the 24-hour emergency on-call physician if they have any concerns regarding his potential sodium level or need to stress dose steroids 6. Use injectable steroids the patient is unable to keep p.o. medications down and transport patient to nearby medical facility 7. Change fluid restriction to 3.0 L/day 8. Check free T4, BMP and A1c today 9. Check sodium weekly for the next 4 weeks at [facility] [place] [facility] in [place], [place]. Lab request faxed to that facility today by front office staff 10. 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) weekly for 4 Occurrences starting 07/06/2024 until 07/06/2025 documented as of this encounter Procedures Procedure Name Priority Date/Time Associated Diagnosis Comments HEMOGLOBIN A1C Routine 07/06/2024 14:44 EST Secondary male hypogonadism documented in this encounter Results * T4 FREE (07/06/2024 14:44 EST) T4, Free 1.4 0.8 - 2.2 ng/dL 07/06/2024 18:52 EST [facility] Blood VENOUS BLOOD / Unknown Venipuncture / Unknown 07/06/2024 14:44 EST 07/06/2024 14:45 EST Wilder Zaidi DO CHEMISTRY & BLOOD GAS ORDERABLES Final Result Performing Organization Address [facility] Co de Phone Number [facility] [address] [place] [address] * HEMOGLOBIN A1C (07/06/2024 14:44 EST) Hemoglobin A1c 4.9 <5.7 % 07/06/2024 20:54 EST [facility] Comment: Glycemic Status References: Normal: ??<5.7% Pre-Diabetes: ??5.7% - 6.4% Diagnostic of Diabetes: ??> or = 6.5% (if confirmed) Est Avg Glucose 94 mg/dL 20:54 [facility] Comment:The eAG represents t he A1c result expressed as average glucose in mg/dL. Blood VENOUS BLOOD / Unknown Venipuncture / Unknown 07/06/2024 14:44 EST 07/06/2024 14:45 EST Wilder Zaidi DO CHEMISTRY & BLOOD GAS ORDERABLES Final Result Performing Organization Address [facility] Co de Phone Number [facility] [address] [place] [address] * BASIC METABOLIC PANEL (BMP) (07/06/2024 14:44 EST) Sodium 142 136 - 145 mmol/L 07/06/2024 18:31 EST [facility] Potassium 4.3 3.5 - 5.0 mmol/L 07/06/2024 18:31 [facility] Chloride 107 96 - 110 mmol/L 07/06/2024 18:31 [facility] CO2 Total 22 22 - 32 mmol/L 07/06/2024 18:31 [facility] Anion Gap 13 5 - 14 mmol/L 07/06/2024 18:31 [facility] Glucose 87 70 - 99 mg/dl 07/06/2024 18:31 [facility] Calcium 9.2 8.5 - 10.5 mg/dL 07/06/2024 18:31 [facility] BUN 17 10 - 26 mg/dL 07/06/2024 18:31 [facility] Creatinine 0.95 0.66 - 1.25 mg/dL 07/06/2024 18:31 [facility] eGFR 108 >60 mL/min/1.73 m2 07/06/2024 18:31 [facility] Blood VENOUS BLOOD / Unknown Venipuncture / Unknown 07/06/2024 14:44 EST 07/06/2024 14:45 EST Wilder Zaidi DO CHEMISTRY & BLOOD GAS ORDERABLES Final Result [facility] [address] [place], [place] [id number] documented in this encounter Visit Diagnoses Diagnosis Secondary male hypogonadism- Primary Other testicular hypofunction History of pituitary surgery Secondary adrenal insufficiency (HCC-CMS) Glucocorticoid deficiency 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HCC-CMS) Diabetes insipidus 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 Reported on 10/31/2016 02/25/2011 07/06/2024 cyclobenzaprine (FLEXERIL) 10 mg tablet Take 10 mg by mouth 3 times daily. 07/06/2024 HYDROCODONE/ACETAMINOPHE N (VICODIN ORAL) Take 5 mg by mouth. 07/06/2024 quetiapine (SEROQUEL) 300 mg tablet Take 200 mg by mouth at bedtime. 08/24/2010 07/06/2024 ramelteon (ROZEREM) 8 mg tablet Take 1 Tablet by mouth daily. 07/06/2024 sennosides (SENEXON ORAL) Take by mouth. 07/06/2024 testosterone (ANDROGEL) 1 % (50 mg/5 gram) gel packet Apply 5 g topically daily. 07/06/2024 testosterone (ANDROGEL) 20.25 mg/1.25 gram (1.62 %) transdermal gel pumpIndications:Panhypop ituitarism (HCC-CMS) Apply 3 pump actuations topically daily for 90 days Daily Max: 60.75 mg 03/15/2015 07/06/2024 traZODone (DESYREL) 50 mg tabletIndications:[place] tropin deficiency (HCC-CMS),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HCC-CMS),Panhypopituita rism (HCC-CMS),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HCC-CMS),Secondary hypothyroidism Take 100 mg by mouth daily. 07/06/2024 documented as of this encounter Historical Medications * This list may reflect changes made after this encounter. hydrOXYzine (ATARAX) 25 mg tablet Take 1 Tablet by mouth 3 times daily. methyl salicylate/mentho l (BENGAY TOP) Apply topically. Bengay Ultra Strength topical cream QUEtiapine (SEROQUEL) 200 mg tablet Take 1 Tablet by mouth daily. At bedtime tasimelteon (HETLIOZ) 20 mg capsule Take 20 mg by mouth daily. added in this encounter Care Teams Geology Faculty Member Relationship Specialty Start Date End Date Ren Vaz MD [facility] [place] [address] PCP - General 09/30/18 documented as of this encounter
--- OUTSIDE RECORDS SUMMARY | 2024-07-22 13:37 | XMS_ITS | Continuity of Care Document ---
Author Organization [place] - [facility] Address [address] [place] [address] Care Team Providers Care Oxygen Therapy Teacher Name Role Phone [facility] Psychiatrist Assessment No assessment recorded. Plan of Treatment Reminders Order Date Submit Date Provider Last Modified By Organization Details Last Modified Time Details Appointments Follow Up 30 2024 10:30A M Terry More Not available Not available Not available Lab None recorded. Referral wound care referral - Pt, 34-M, [...] see him back in clinic. 2024 025 [facility], [address] [place] [address] [address], [place], [address], 07/19/2024 08:45:22 Procedures None recorded. Surgeries None recorded. Imaging None recorded. Medication Orders cephalexi n 500 mg capsule 2024 025 [facility] [place], [address], 07/15/2024 10:28:11 Patient TargetsNo targets recorded. Patient Instructions Encounter Date Encounter Id Patient Instructions Last Modified By Organization Details Last Modified Time 07/15/2024 [id number] I have referred Miguel Angel to the [...] you have other concerns please notify us. Not available 07/15/2024 10:30:34 Reason for Referral [...] Abnormal Flag Note LastModifiedBy Organization Detail LastModifiedTime 06/14/20 24 06/14/2024 CT imagi ng repor t Jose t Name: Miguel Angel Burgos Unit #: [id number] Loc: ER Orderi ng Provid er: Diego Winchester M.D. Accoun t #: [id number] Status : [facility] ER Primar y On License Of [facility] er: Jose More Date of Exam: 02/27 Sex: M : 1989 Age: 33 Exam(s ) a CT:CT head wo Exam(s ) CT HEAD WO EXAM: CT HEAD WO CLINIC AL HISTOR Y: Yasmeen godwin sz. TECHNI QUE: Imagin g Protoc ol: [...] M.D. 856 Transc ribed By: Javier PANG,Rosmery scottie 856 This is privil eged, confid ential [...] the addres s above. Thank- you. INTERFACE [facility] [address], [place], [address] 06/14/2024 09:01:48 Result Notes None recorded. Problems Name Problem SNOMED Code Status Onset Date Resolution Date Notes Provider Name and Address Organization Details Recorded Time Hyponatr emia 87415760 Active [address], [place], [address] , [facility] 4 12:31:17 Mass lesion of brain 142431375 Active [address], [place], [address] , [facility] 4 17:54:43 Abscess of skin and/or subcutan eous tissue 66651993 Active [address], [place], [address] , [facility] 5 10:14:30 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 2016 Problem Code: H47.20; Problem Code Type: ICD-10; Not Available [facility] 3 04:21:52 Gastriti s 0191468 Active 2016 Problem Code: K29.70; Problem Code Type: ICD-10; Not Available [facility] 3 04:21:52 Urinary incontin ence 253095207 Active 2016 Problem Code: R32; Problem Code Type: ICD-10; Not Available [facility] 3 04:21:52 Senile osteopor osis 86180245 Active 201602/22/20 21 - Comments only - [...] M81.0; Problem Code Type: ICD-10; Not Available [facility] 3 04:21:52 Pure hypergly ceridemi a 307205042 Active 201602/27/20 22 - Comments only - Ren Vaz MD - tolerati ng statin. However with elevated LFTs could consider cutting statin dose to see if helps LFTs. Problem Code: E78.1; Problem Code Type: ICD-10; Not Available [facility] 3 04:21:53 History of benign neoplasm of brain 984456017 Active 2016 Problem Code: Z86.011; Problem Code Type: ICD-10; Not Available [facility] 3 04:21:53 Insomnia 895897261 Active 201612/09/19 19 - Deterior ated - Subha Colon OLIVE PITTER - Currentl y on trazodon e, not effectiv e. See above. 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 Cycloben zaprine no longer effectiv e. Will change to baclofen 10mg TID. dairy frozen manager will call in 1-2 weeks to report effectiv eness. Pain may be influenc ing increase d agitatio n and poor sleep. Problem Code: M24.50; Problem Code Type: ICD-10; Not Available [facility] 3 04:21:53 Amnesia 72441588 Active 2016 Problem Code: R41.3; Problem Code Type: ICD-10; Not Available [facility] 3 04:21:53 Hemipleg ia 47785774 Active 201602/22/20 21 - Comments only - Ren Vaz MD - Encourag ing increase in activty. I agree with PT. Problem Code: G81.90; Problem Code Type: ICD-10; Not Available [facility] 3 04:21:54 Red blood cell finding 356840937 Active 2017 Problem Code: R71.8; Problem Code Type: ICD-10; Not Available [facility] 3 04:21:54 Retentio n of urine 043574793 Active 201805/18/20 19 - Comments only - Subha Colon MAX - Suscepti ble to UTIs. They will return urine sample for testing. Problem Code: R33.9; Problem Code Type: ICD-10; Not Available [facility] 3 04:21:54 Restless ness and agitatio n 738565573 Active 2018 Problem Code: R45.1; Problem Code Type: ICD-10; Not Available [facility] 3 04:21:54 Seizure 21977986 Active 2018 Problem Code: R56.9; Problem Code Type: ICD-10; Not Available [facility] 3 04:21:54 Dyspnea 289571951 Completed 201806/01/2019 Problem Code: R06.02; Problem Code Type: ICD-10; Not Available [facility] 3 04:21:54 Acute upper respirat ory infectio n 75302064 Completed 201806/01/2019 05/18/20 19 - Comments only - Subha Darlene OLIVE PITTER - With low-grad e fever, producti ve cough, wheezing . Pt is quite suscepti ble to both respirat ory and urinary tract infectio ns. Will start doxycycl ine to cover for possible pneumoni a. Advised to increase use of nebulize r to TID. Problem Code: J06.9; Problem Code Type: ICD-10; Not Available [facility] 3 04:21:55 Steatosi s of liver 426579771 Active 201903/03/20 23 - Comments only - Ren Vaz MD - Improved last year with weight loss. REcheck CBC/CMP with labs Problem Code: K76.0; Problem Code Type: ICD-10; Not Available [facility] 3 04:21:55 Adult health examinat [...] Problem Code Type: ICD-10; Not Available [facility] 3 04:21:55 Bradycar hossein 38575162 Completed 201909/01/2019 08/25/19 20 - Comments only - Ren Vaz MD - Resolved after stopping metoprol ol. BP still okay, no hard indicati on for metoprol ol, so continue off this medicati on. Problem Code: R00.1; Problem Code Type: ICD-10; Not Available [facility] 3 04:21:55 Urticari a 101964857 Active 201908/14/19 21 - Comments only - Ren Vaz MD - irmpoved . continue higher dose H2 gui for now. Problem Code: L50.9; Problem Code Type: ICD-10; Not Available [facility] 3 04:21:55 Localize d eruption of skin 655629948 Completed 201904/26/2020 04/05/20 20 - Comments only - Ricarda Sanchez BULK SYSTEM OPERATOR - Unclear etiology : possibly contact urticari [...] Problem Code Type: ICD-10; Not Available [facility] 3 04:21:56 Anemia 753273482 Active 202008/20/19 22 - Comments only - Ren Vaz MD - This has been a stable chronic issue. We discusse d I iron stores actually normal, low TIBC suggests chronic disease cause. Continue to follow. Problem Code: D64.9; Problem Code Type: ICD-10; Not Available [facility] 3 04:21:56 Hypo-osm olality and or hyponatr emia 549914707 Active 202002/22/20 21 - Comments only - Ren Vaz MD - Doing well on fluid restrict ion, continue . Problem Code: E87.1; Problem Code Type: ICD-10; Not Available [facility] 3 04:21:56 Obesity 481861203 Active 2020 Problem Code: E66.9; Problem Code Type: ICD-10; Not Available [facility] 3 04:21:56 Furuncle of left axilla 70122338717 927647 Active 202003/14/20 21 - Comments only - [...] Problem Code Type: ICD-10; Not Available [facility] 3 04:21:56 Trichoti jensmania 04704458 Active 202102/27/20 22 - Comments only - Ren Vaz MD - Discusse d skin care, defer medicati on adjustme nts to psych Problem Code: F63.3; Problem Code Type: ICD-10; Not Available [facility] 3 04:21:56 Diabetes insipidu s 32920575 Active 201605/24/20 19 - Comments only - Subha Colon APRN - Will recheck sodium level. Problem Code: E23.2; Problem Code Type: ICD-10; Not Available [facility] 3 04:21:57 Hypopitu itarism 06662818 Active 2016 Problem Code: E23.0; Problem Code Type: ICD-10; Not Available [facility] 3 04:21:57 Hypothyr oidism 04753833 Active 201602/22/20 21 - Comments only - Ren Vaz MD - FT4 at [facility], continue current supplume ntation Problem Code: E03.8; Problem Code Type: ICD-10; Not Available [facility] 3 04:21:57 History and physical examinat trae, administ raticolton Completed 201807/09/2019 Problem Code: Z02.89; Problem Code Type: ICD-10; Not Available [facility] 3 04:21:58 Disorder of eye 340527054 Completed 201804/05/2019 Problem Code: H44.89; Problem Code Type: ICD-10; Not Available [facility] 3 04:21:59 Pain of left knee joint 75765958563 4107 Completed 201707/09/2019 Problem Code: M25.562; Problem Code Type: ICD-10; Not Available [facility] 3 04:21:59 Bleeding 781177580 Completed 202002/21/2021 Problem Code: R58; Problem Code Type: ICD-10; Not Available [facility] 3 04:21:59 Fever 088582845 Completed 201804/05/2019 Problem Code: R50.9; Problem Code Type: ICD-10; Not Available [facility] 3 04:21:59 Family history of diabetes mellitus 528660007 Completed 201607/09/2019 Problem Code: Z83.3; Problem Code Type: ICD-10; Not Available [facility] 3 04:22:00 Fever 657378096 Completed 201805/24/2019 Problem Code: R50.9; Problem Code Type: ICD-10; Not Available [facility] 3 04:22:00 Gastroes ophageal reflux disease without esophagi tis 858541191 Completed 201604/02/2023 Problem Code: K21.9; Problem Code Type: ICD-10; Not Available [facility] 3 04:22:00 Wheezing 99335790 Completed 201709/18/2018 Problem Code: R06.2; Problem Code Type: ICD-10; Not Available [facility] 3 04:22:00 High enzyme level in serum 082277435 Completed 201904/02/2023 02/27/20 22 - Comments only [...] R74.8; Problem Code Type: ICD-10; Not Available [facility] 3 04:22:01 Body mass index 30+ - obesity 838810329 Completed 202004/02/2023 Problem Code: Z68.34; Problem Code Type: ICD-10; Not Available [facility] 3 04:22:01 Disorder of intestin e 69458665 Completed 202008/14/2020 Problem Code: K63.9; Problem Code Type: ICD-10; Not Available [facility] 3 04:22:01 Screenin g for disorder Completed 201809/18/2018 Problem Code: Z13.9; Problem Code Type: ICD-10; Not Available [facility] 3 04:22:01 Spasm 62565720 Completed 201704/02/2023 08/25/19 - Comments only - Ren Vaz MD - Ongoing problem since CVA. Has neuro consult in october to consiide botox. For now try higher dose lorazepa m along with baclofen . Problem Code: R25.2; Problem Code Type: ICD-10; Not Available [facility] 3 04:22:02 Pain of right knee joint 47978324268 4100 Completed 201704/30/2018 Problem Code: M25.561; Problem Code Type: ICD-10; Not Available [facility] 3 04:22:02 Cough 81947690 Completed 201709/08/2019 Problem Code: R05; Problem Code Type: ICD-10; Not Available [facility] 3 04:22:02 Iron deficien cy anemia 99378554 Completed 201704/02/2023 Problem Code: D50.8; Problem Code Type: ICD-10; NAKIA SANTOS [address], [place], [address] , [facility]. 4 09:14:59 Counseli odalis Completed 201812/08/2018 Problem Code: Z71.89; Problem Code Type: ICD-10; Not Available [facility] 3 04:22:03 Disorder of tooth developm ent 911640497 Completed 201808/14/2020 Problem Code: K00.9; Problem Code Type: ICD-10; Not Available [facility] 3 04:22:03 Hypocalc emia 3263625 Completed 201910/25/2019 Problem Code: E83.51; Problem Code Type: ICD-10; Not Available [facility] 3 04:22:03 Hyperosm olality and or hypernat remia 732749927 Completed 201908/14/2020 Problem Code: E87.0; Problem Code Type: ICD-10; Not Available [facility] 3 04:22:04 Testicul ar hypofunc tion 464791905 Completed 201604/02/2023 Problem Code: E29.1; Problem Code Type: ICD-10; Not Available [facility] 3 04:22:04 Seasonal allergic rhinitis 082242055 Completed 201904/02/2023 10/25/19 20 - Comments only - Ren Vaz MD - try H1 block Problem Code: J30.2; Problem Code Type: ICD-10; Not Available [facility] 3 04:22:05 Wheezing 53340519 Completed 201805/24/2019 Problem Code: R06.2; Problem Code Type: ICD-10; Not Available [facility] 3 04:22:05 Seizure 84758376 Completed 201607/09/2019 Problem Code: R56.9; Problem Code Type: ICD-10; Not Available [facility] 3 04:22:05 Chronic excoriat ion of skin 440463776 Active [address], [place], [address] , [facility]. 4 09:12:56 Non-alco holic fatty liver disease Active [address], [place], [address] , [facility]. 4 09:14:30 Iron deficien cy anemia 17563223 Active 2023 Problem Code: D50.8; Problem Code Type: ICD-10; NAKIA SANTOS [address], [place] [address] , [facility] 4 09:14:59 Pruritic disorder 110835059 Active 2023 [address], [place] [address] , [facility] 4 09:21:10 Seizure disorder 577474153 Active 2023 [address], [address] 4 10:59:32 Finding of frequenc y of urinatio n 552522150 Active 2023 [address], [address] 4 11:23:00 Notes:*Problem Name: Blindne ss - both eyes *Problem Status: active *Comments: *Problem Code: H54.0 *Problem Code Type: ICD-10 *Note Date: 11/11/2016 Problem Notes None recorded. Medical Equipment None Reported. Allergies Allergen ID Allergen Name Allergen Category Reaction Reaction Severity Criticality Documentation Date Start Date Code Code System Note Provider Name and Address Organization Details Recorded Time 80822 Lopid medicatio n Not available Not available Not available 05/04/2024 9 RxNorm MALOU Martinez, [facility] 4 10:58:41 Medications Name Sig Start Date [...] DateTime 5 167.157 4 cm 31.5 kg/m2 09954.6 4 g 97.5 [degF] 100 % 100 % 96 /min 106 mm[Hg] 68 mm[Hg] KRISTYN SINGH [place] [facility]. 5 10:00:19 Social History Question Answer Notes LastModified by Organizat ion Details LastModified Time Tobacco Smoking Status Never Smoker Ashley England MA [facility], [facility]. 05/04/2024 11:00:43 What Was The Date Of Your Most Recent Tobacco Screening? 05/04/2024 Information not available 05/04/2024 Has Tobacco Cessation Counseling Been Provided? Yes [email or web address] Information not available 05/04/2024 On What Date Was Tobacco Cessation Counseling Provided? 05/04/2024 [email or web address] Information not available 05/04/2024 Sex: Male Functional Status None recorded. Mental Status None recorded. Family History Nothing Reported Notes:*Problem: Mom had trever l failure Diabetes in the family Medical History No medical history recorded. Immunizations Vaccine Type Date Status Note Provider Nam e and Address Organization Details Recorded Time MMR 0 completed Not Available [facility] 05/16/2023 04:39:45 MMR 2 completed Not Available [facility] 05/16/2023 04:39:46 Tdap 1 completed Not Available [facility] 05/16/2023 04:39:47 Tdap 1 completed Not Available [facility] 05/16/2023 04:39:48 Influenza, split virus, quadrivalent, PF 9 completed Not Available [facility] 05/16/2023 04:39:48 Hib, unspecified formulation 1 completed Not Available [facility] 05/16/2023 04:39:48 Hib, unspecified formulation 1 completed Not Available [facility] 05/16/2023 04:39:49 Hib, unspecified formulation 2 completed Not Available [facility] 05/16/2023 04:39:49 Hib, unspecified formulation 1 completed Not Available [facility] 05/16/2023 04:39:49 DTaP 1 completed Not Available [facility] 05/16/2023 04:39:50 DTaP 1 completed Not Available [facility] 05/16/2023 04:39:50 DTaP 6 completed Not Available [facility] 05/16/2023 04:39:50 DTaP 1 completed Not Available [facility] 05/16/2023 04:39:50 DTaP 2 completed Not Available [facility] 05/16/2023 04:39:50 COVID-19, mRNA, LNP-S, PF, 100 mcg/0.5mL dose or 50 mcg/0.25mL dose 1 completed Not Available [facility] 05/16/2023 04:39:50 COVID-19, mRNA, LNP-S, PF, 100 mcg/0.5mL dose or 50 mcg/0.25mL dose 2 completed Not Available [facility] 05/16/2023 04:39:51 SARS-COV-2 (COVID-19) vaccine, UNSPECIFIED 1 completed Not Available [facility] 05/16/2023 04:39:52 SARS-COV-2 (COVID-19) vaccine, UNSPECIFIED 1 completed Not Available [facility] 05/16/2023 04:39:52 Hep B, unspecified formulation 3 completed Not Available [facility] 05/16/2023 04:39:52 Hep B, unspecified formulation 3 completed Not Available [facility] 05/16/2023 04:39:52 Hep B, unspecified formulation 3 completed Not Available [facility] 05/16/2023 04:39:52 influenza, unspecified formulation 4 completed Not Available [facility] 05/16/2023 04:39:53 polio, unspecified formulation 1 completed Not Available [facility] 05/16/2023 04:39:53 polio, unspecified formulation 1 completed Not Available [facility] 05/16/2023 04:39:54 polio, unspecified formulation 6 completed Not Available [facility] 05/16/2023 04:39:54 polio, unspecified formulation 1 completed Not Available [facility] 05/16/2023 04:39:54 polio, unspecified formulation 2 completed Not Available [facility] 05/16/2023 04:39:54 rabies, unspecified formulation 07/20/199 5 completed Not Available [facility] 05/16/2023 04:39:55 rabies, unspecified formulation 5 completed Not Available [facility] 05/16/2023 04:39:55 Influenza, split virus, trivalent, PF 4 completed NAKIA SANTOS [address], [place], [address], [facility] 06/29/2024 17:51:39 Influenza, split virus, quadrivalent, PF 3 completed Not Available [facility] 07/18/2023 05:33:06 COVID-19, mRNA, LNP-S, PF, kota-sucrose, 30 mcg/0.3 mL 3 completed Not Available [facility] 07/18/2023 05:33:07 Past Encounters Encounter ID Performer Location Encounter Start Date Encounter Closed Date Diagnosis/Indication Diagnosis SNOMED-CT Code Diagnosis ICD10 Code Diagnosis Note [id number] NAKIA SANTOS [facility] [address] [place] [address] 06/28/2024 11:23:42 06/28/2024 12:54:45 Hyponatremia 93878163 E87.1 will recheck this lab. Currently following 2.5 L fluid restrictio n. No signs of excess fluid status on exam. Pt. at baseline from mental status viewpoint. Medlist reconciled . Active or passive immunization 616773017 Z23 Mass lesion of brain 422 294622 R22.0 Pt. to f/u with neurosurge ry for evolving 3.5cm mass [id number] NAKIA SANTOS [facility] [address] [place] [address] 07/15/2024 09:44:29 07/15/2024 10:32:19 Abscess of skin and/or subcutaneous tissue 20342412 L02.91 Pt. with abscess, about 5x10 cm along eliptical axis of left posterolat eral thigh, warm, ttp. Will start antibiotic s given pt. propensity to pick and current discomfort . Referred to wound care clinic for this and the other smaller ulceration on his right upper thigh. Health Concerns Section Related Observation LastModified by Organization Detai ls LastModified Time None Recorded Concern Status LastModified by Organization Details LastModified Time None Recorded Payers Encounter Date Sequence Insurance Name Policy Number Policy Soliman Covered Member ID Soliman Member ID Guarantor Name 07/15/2024 1 [facility] (MEDICAID) Miguel Angel Burgos [id number] Miguel Angel Burgos Notes Date Note Type Note Provider Name and Address Organization Details Recorded Time 07/15/2024 text/html Pt. 34-M, hx of chronic [...] development disability. NAKIA SANTOS [address], [place], [address], [facility]. 07/15/2024 10:33:24
--- OUTSIDE RECORDS SUMMARY | 2024-07-22 13:37 | XMS_ITS | Encounter Summary ---
Author Organization [facility] Address [address] [place] [address] Care Team Providers Care Pug Mill Operator Name Role Phone Ren Vaz MD Primary Care Provider [phone] Reason for Visit * Reason Onset Date Comments Other 06/21/2024 Needs permission to discuss Follow-up 06/21/2024 Encounter Details Date Type Department Care Team (Late st Contact Info) Description 06/21/2024 Telephone [facility] Endocrinology - [facility] [address] [place] [address] Wilder Zaidi, [address] [place] [address] Other (Needs permission to discuss); [...] Zaidi. Please call Bettina back to schedule [phone] * Telephone Encounter - Mavis Franco RN - 06/21/2024 1624 EST Images from the original note were not included. Spoke with Prachi at [facility]. Fax will be sent of document stating [...] ICU today. Bettina Before [address] [place] [address] Routing to Salud Burton, Dr. Zaidi, and [facility] carrie. MAVIS FRANCO RN 06/21/2024 17:02 * Telephone Encounter - Lucille Carmichael - 06/21/2024 1433 EST Bettina Burgos (sister) calling. Asking if patient is still seeing Dr Zaidi/when is next appt, etc. This person is not listed on his permission to discuss and keno writer could not give her any answers. Bettina because annoyed and asked that Dr. Zaidi call and speak with her directly. documented in this encounter Plan of Treatment Upcoming Encounters Date Type Department Care Team (Late st Contact Info) Description 10/01/2024 13:40 EDT Office Visit [facility] Endocrinology - [facility] [address] [place] [address] Wilder Zaidi, DO [address] [place] [address] documented as of this encounter Visit Diagnoses Not on filedocumented in this encounter Care Teams Pug Mill Operator Relationship Specialty Start Date End Date Ren Vaz MD [facility] [address] PCP - General 09/30/18 documented as of this encounter
--- OUTSIDE RECORDS SUMMARY | 2024-07-22 13:37 | XMS_ITS | Continuity of Care Document ---
Author Organization [place] - [facility] Address [address] [place] [address] Care Team Providers Care Park Interpretive Ranger Name Role Phone [facility] Psychiatrist Assessment No assessment recorded. Plan of Treatment Reminders Order Date Submit Date Provider Last Modified By Organization Details Last Modified Time Details Appointments Follow Up 30 2024 10:30A M Terry More Not available Not available Not available Lab BMP, serum or plasma - 1 SST 2023 024 sleiper3 [facility] (Registration ), [address] [place] [address] [place], [address], 07/05/2024 09:25:07 Referral None recorded . Procedures None recorded . Surgeries None recorded . Imaging None recorded . Medication Orders None recorded . Patient TargetsNo targets recorded. Patient InstructionsNo instructions recorded. Reason for Referral None Reported. Results Created Date Observation Date Name Description Value Unit Range Abnormal Flag Note LastModifiedBy Organization Detail LastModifiedTime 06/13/2006/13/2024 vrad repor t Patien t Name: Miguel Angel Burgos Unit #: [id number] Loc: ER Orderi ng Provid er: Accoun t #: [id number] Status : PRE ER Primar y [...] the head withou t contra st. COMPAR HARDIK: CT HEAD WO 024 8:38 AM FINDIN [...] of the extra- axial space along the pilot plant operator ior midlin e of the pilot plant operator ior fossa presum ably repres ents promin [...] MD. Orderi ng:Madeleine Ortega MD Access ion#=1 [id number] Ordere d By: CC: ------ ------ ------ ------ ------ ------ ------ ------ ------ ------ ------ ------ ---- Dictat ed By: Report s vrad 2136 Transc ribed By: Tamica Boyle 2136 This is privil eged, confid ential inform ation intend ed only for the provid er named. Any use or distri bution by any person other than this provid er is strict ly prohib ited. If you receiv e this report in error, please notify us immedi jimly at [phone] and return the origin al report to us at the addres s above. Thank- you. [place] [id number], [place], [address] 06/14/2024 13:39:40 06/14/20 24 06/14/2024 CT imagi ng repor t Patien t Name: Miguel Angel Burgos Unit #: [id number] Loc: ER Orderi ng Provid er: Diego Winchester M.D. Sally bui #: [id number] Status : DEP ER Primar y [...] 57 [id number] Transc ribed By: Javier PANG,Rosmery scottie [...] the addres s above. Thank- you. INTERFACE [facility] [address] , [facility] [place], [address] 06/14/2024 09:01:48 Result Notes None recorded. 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 2016 Problem Code: H47.20; Problem Code Type: ICD-10; Not Available [facility] 3 04:21:52 Gastriti s 5283731 Active 2016 Problem Code: K29.70; Problem Code Type: ICD-10; Not Available [facility] 3 04:21:52 Urinary incontin ence 178826649 Active 2016 Problem Code: R32; Problem Code Type: ICD-10; Not Available [facility] 3 04:21:52 Senile osteopor osis 25132914 Active 201602/22/20 21 - Comments only - [...] M81.0; Problem Code Type: ICD-10; Not Available [facility] 3 04:21:52 Pure hypergly ceridemi a 099629672 Active 201602/27/20 22 - Comments only - Ren Vaz MD - tolerati ng statin. However with elevated LFTs could consider cutting statin dose to see if helps LFTs. Problem Code: E78.1; Problem Code Type: ICD-10; Not Available [facility] 3 04:21:53 History of benign neoplasm of brain 597977268 Active 2016 Problem Code: Z86.011; Problem Code Type: ICD-10; Not Available [facility] 3 04:21:53 Insomnia 790429485 Active 201612/09/19 19 - Deterior ated - Subha Darlene CHIEF MECHANICAL OFFICER - Currentl y on trazodon e, not effectiv e. See above. 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 Cycloben zaprine no longer effectiv e. Will change to baclofen 10mg TID. manager testing will call in 1-2 weeks to report effectiv eness. Pain may be influenc ing increase d agitatio n and poor sleep. Problem Code: M24.50; Problem Code Type: ICD-10; Not Available [facility] 3 04:21:53 Amnesia 16725101 Active 2016 Problem Code: R41.3; Problem Code Type: ICD-10; Not Available [facility] 3 04:21:53 Hemipleg ia 84804955 Active 201602/22/20 21 - Comments only - Ren Vaz MD - Encourag ing increase in activty. I agree with PT. Problem Code: G81.90; Problem Code Type: ICD-10; Not Available [facility] 3 04:21:54 Red blood cell finding 683262338 Active 2017 Problem Code: R71.8; Problem Code Type: ICD-10; Not Available [facility] 3 04:21:54 Retentio n of urine 516187953 Active 201805/18/20 19 - Comments only - Subha Marieuk KELLOGGN - Suscepti ble to UTIs. They will return urine sample for testing. Problem Code: R33.9; Problem Code Type: ICD-10; Not Available [facility] 3 04:21:54 Restless ness and agitatio n 230650756 Active 2018 Problem Code: R45.1; Problem Code Type: ICD-10; Not Available [facility] 3 04:21:54 Seizure 67804108 Active 2018 Problem Code: R56.9; Problem Code Type: ICD-10; Not Available [facility] 3 04:21:54 Dyspnea 568076948 Completed 201806/01/2019 Problem Code: R06.02; Problem Code Type: ICD-10; Not Available [facility] 3 04:21:54 Acute upper respirat ory infectio n 69492222 Completed 201806/01/2019 05/18/20 19 - Comments only - Subha Colon MAX - With low-grad e fever, producti ve cough, wheezing . Pt is quite suscepti ble to both respirat ory and urinary tract infectio ns. Will start doxycycl ine to cover for possible pneumoni a. Advised to increase use of nebulize r to TID. Problem Code: J06.9; Problem Code Type: ICD-10; Not Available [facility] 3 04:21:55 Steatosi s of liver 606349775 Active 201903/03/20 23 - Comments only - Ren Vaz MD - Improved last year with weight loss. REcheck CBC/CMP with labs Problem Code: K76.0; Problem Code Type: ICD-10; Not Available [facility] 3 04:21:55 Adult health examinat [...] Z00.00; Problem Code Type: ICD-10; Not Available [facility] 3 04:21:55 Bradycar hossein 74917655 Completed 201909/01/2019 08/25/19 20 - Comments only - Ren Vaz MD - Resolved after stopping metoprol ol. BP still okay, no hard indicati on for metoprol ol, so continue off this medicati on. Problem Code: R00.1; Problem Code Type: ICD-10; Not Available [facility] 3 04:21:55 Urticari a 372158717 Active 201908/14/19 21 - Comments only - Ren Vaz MD - irmpoved . continue higher dose H2 gui for now. Problem Code: L50.9; Problem Code Type: ICD-10; Not Available [facility] 3 04:21:55 Localize d eruption of skin 477137271 Completed 201904/26/2020 04/05/20 20 - Comments only - Ricarda Sanchez OPERATING MANAGER - Unclear etiology : possibly contact urticari [...] R21; Problem Code Type: ICD-10; Not Available [facility] 3 04:21:56 Anemia 327780461 Active 202008/20/19 22 - Comments only - Ren Vaz MD - This has been a stable chronic issue. We discusse d I iron stores actually normal, low TIBC suggests chronic disease cause. Continue to follow. Problem Code: D64.9; Problem Code Type: ICD-10; Not Available [facility] 3 04:21:56 Hypo-osm olality and or hyponatr emia 016999911 Active 202002/22/20 21 - Comments only - Ren Vaz MD - Doing well on fluid restrict ion, continue . Problem Code: E87.1; Problem Code Type: ICD-10; Not Available [facility] 3 04:21:56 Obesity 571342488 Active 2020 Problem Code: E66.9; Problem Code Type: ICD-10; Not Available [facility] 3 04:21:56 Furuncle of left axilla 77747885624 607502 Active 202003/14/20 21 - Comments only - [...] L02.422; Problem Code Type: ICD-10; Not Available [facility] 3 04:21:56 Trichoti manishaia 04639665 Active 202102/27/20 22 - Comments only - Ren Vaz MD - Discusse d skin care, defer medicati on adjustme nts to psych Problem Code: F63.3; Problem Code Type: ICD-10; Not Available [facility] 3 04:21:56 Diabetes insipidu s 86494007 Active 201605/24/20 19 - Comments only - Subha Colon APRN - Will recheck sodium level. Problem Code: E23.2; Problem Code Type: ICD-10; Not Available [facility] 3 04:21:57 Hypopitu itarism 23795429 Active 2016 Problem Code: E23.0; Problem Code Type: ICD-10; Not Available [facility] 3 04:21:57 Hypothyr oidism 56865422 Active 201602/22/20 21 - Comments only - Ren Vaz MD - FT4 at [facility], continue current supplume ntation Problem Code: E03.8; Problem Code Type: ICD-10; Not Available [facility] 3 04:21:57 History and physical examinat trae administ raticolton Completed 201807/09/2019 Problem Code: Z02.89; Problem Code Type: ICD-10; Not Available [facility] 3 04:21:58 Disorder of eye 695166482 Completed 201804/05/2019 Problem Code: H44.89; Problem Code Type: ICD-10; Not Available [facility] 3 04:21:59 Pain of left knee joint 42894927925 4107 Completed 201707/09/2019 Problem Code: M25.562; Problem Code Type: ICD-10; Not Available [facility] 3 04:21:59 Bleeding 453136443 Completed 202002/21/2021 Problem Code: R58; Problem Code Type: ICD-10; Not Available [facility] 3 04:21:59 Fever 513957211 Completed 201804/05/2019 Problem Code: R50.9; Problem Code Type: ICD-10; Not Available [facility] 3 04:21:59 Family history of diabetes mellitus 326137624 Completed 201607/09/2019 Problem Code: Z83.3; Problem Code Type: ICD-10; Not Available [facility] 3 04:22:00 Fever 808773346 Completed 201805/24/2019 Problem Code: R50.9; Problem Code Type: ICD-10; Not Available [facility] 3 04:22:00 Gastroes ophageal reflux disease without esophagi tis 849536116 Completed 201604/02/2023 Problem Code: K21.9; Problem Code Type: ICD-10; Not Available [facility] 3 04:22:00 Wheezing 68243994 Completed 201709/18/2018 Problem Code: R06.2; Problem Code Type: ICD-10; Not Available [facility] 3 04:22:00 High enzyme level in serum 970297818 Completed 201904/02/2023 02/27/20 - Comments only - Ren Vaz MD - Negative work up for viral hepatiti s, nl iron. No EtOH. Liver u/s c/w fatty liver. Will repeat CBC/CMP, refer for hepatolo gy if/when concerni ng for advanced fibrosis on FIB4. Could consider adjustin g zonisami de and/or statin dose if getting worse. Problem Code: R74.8; Problem Code Type: ICD-10; Not Available [facility] 3 04:22:01 Body mass index 30+ - obesity 307012947 Completed 202004/02/2023 Problem Code: Z68.34; Problem Code Type: ICD-10; Not Available [facility] 3 04:22:01 Disorder of intestin e 29221713 Completed 202008/14/2020 Problem Code: K63.9; Problem Code Type: ICD-10; Not Available [facility] 3 04:22:01 Screenin g for disorder Completed 201809/18/2018 Problem Code: Z13.9; Problem Code Type: ICD-10; Not Available [facility] 3 04:22:01 Spasm 12150886 Completed 201704/02/2023 08/25/19 20 - Comments only - Ren Vaz MD - Ongoing problem since CVA. Has neuro consult in october to consiide botox. For now try higher dose lorazepa m along with baclofen . Problem Code: R25.2; Problem Code Type: ICD-10; Not Available [facility] 3 04:22:02 Pain of right knee joint 27620651806 4100 Completed 201704/30/2018 Problem Code: M25.561; Problem Code Type: ICD-10; Not Available [facility] 3 04:22:02 Cough 85227222 Completed 201709/08/2019 Problem Code: R05; Problem Code Type: ICD-10; Not Available [facility] 3 04:22:02 Iron deficien cy anemia 77658204 Completed 201704/02/2023 Problem Code: D50.8; Problem Code Type: ICD-10; NAKIA SANTOS [address], [place], [address] , [facility] 4 09:14:59 Counseli ng Completed 201812/08/2018 Problem Code: Z71.89; Problem Code Type: ICD-10; Not Available [facility] 3 04:22:03 Disorder of tooth developm ent 593233274 Completed 201808/14/2020 Problem Code: K00.9; Problem Code Type: ICD-10; Not Available [facility] 3 04:22:03 Hypocalc emia 5071654 Completed 201910/25/2019 Problem Code: E83.51; Problem Code Type: ICD-10; Not Available [facility] 3 04:22:03 Hyperosm olality and or hypernat remia 792364547 Completed 201908/14/2020 Problem Code: E87.0; Problem Code Type: ICD-10; Not Available [facility] 3 04:22:04 Testicul ar hypofunc tion 361956248 Completed 201604/02/2023 Problem Code: E29.1; Problem Code Type: ICD-10; Not Available [facility] 3 04:22:04 Seasonal allergic rhinitis 188129760 Completed 201904/02/2023 10/25/19 20 - Comments only - eRn Vaz MD - try H1 block Problem Code: J30.2; Problem Code Type: ICD-10; Not Available [facility] 3 04:22:05 Wheezing 55474574 Completed 201805/24/2019 Problem Code: R06.2; Problem Code Type: ICD-10; Not Available [facility] 3 04:22:05 Seizure 96779467 Completed 201607/09/2019 Problem Code: R56.9; Problem Code Type: ICD-10; Not Available [facility] 3 04:22:05 Chronic excoriat ion of skin 064855043 Active 2023 NAKIA SANTOS [address], [place] [address] , [facility] 4 09:12:56 Non-alco holic fatty liver disease Active 2023 NAKIA SANTOS [address], [place] [address] , [facility] 4 09:14:30 Iron deficien cy anemia 85168568 Active 2023 Problem Code: D50.8; Problem Code Type: ICD-10; NAKIA SANTOS [address], [place] [address] , [facility] 4 09:14:59 Pruritic disorder 958626551 Active [address], [place] [address] , [facility] 4 09:21:10 Seizure disorder 830867256 Active [address], [place] [address] , [facility] 4 10:59:32 Finding of frequenc y of urinatio n 750098462 Active [address], [place], [address] , [facility] 11:23:00 Notes:*Problem Name: Blindne ss - both eyes *Problem Status: active *Comments: *Problem Code: H54.0 *Problem Code Type: ICD-10 *Note Date: 11/11/2016 Problem Notes None recorded. Medical Equipment None Reported. Allergies Allergen ID Allergen Name Allergen Category Reaction Reaction Severity Criticality Documentation Date Start Date Code Code System Note Provider Name and Address Organization Details Recorded Time 32112 Lopid medicatio n Not available Not available Not available 05/04/2024 9 RxNorm MALOU Martinez, [facility] 10:58:41 Medications Name Sig Start Date [...] 2016 active Not Available Not Available Not Avdoroteo strange Rozerem 8 mg tablet TAKE ONE TABLET BY MOUTH AT BEDTIME; FOLLOW UP IN 1-2 MONTHS 06/28 completed Not Available Not Available Not Available Nebulizer Use as directed for wheezing 2017 active Not Available Not Available Not Avdoroteo strange Bengay Ultra Strength Use as needed for [...] 2016 active Not Available Not Available Not Avdoroteo strange BAG BALM As needed for chronic wound [...] DateTime 4 167.157 4 cm 34.3 kg/m2 74107.9 9 g 97.2 [degF] 97 % 97 % 80 /min 128 mm[Hg] 70 mm[Hg] KRISTYN SINGH MA [facility] 4 11:35:36 Social History Question Answer Notes LastModified by Organizat ion Details LastModified Time Tobacco Smoking Status Never Smoker MALOU Martinez, [facility] 05/04/2024 11:00:43 What Was The Date Of Your Most Recent Tobacco Screening? 05/04/2024 Information not available 05/04/2024 Has Tobacco Cessation Counseling Been Provided? Yes [email or web address] Information not available 05/04/2024 On What Date Was Tobacco Cessation Counseling Provided? 05/04/2024 [email or web address] Information not available 05/04/2024 Sex: Male Functional Status None recorded. Mental Status None recorded. Family History Nothing Reported Notes:*Problem: Mom had trever l failure Diabetes in the family Medical History No medical history recorded. Immunizations Vaccine Type Date Status Note Provider Nam e and Address Organization Details Recorded Time MMR 0 completed Not Available [facility] 05/16/2023 04:39:45 MMR 2 completed Not Available [facility] 05/16/2023 04:39:46 Tdap 1 completed Not Available [facility] 05/16/2023 04:39:47 Tdap 1 completed Not Available [facility] 05/16/2023 04:39:48 Influenza, split virus, quadrivalent, PF 9 completed Not Available [facility] 05/16/2023 04:39:48 Hib, unspecified formulation 1 completed Not Available [facility] 05/16/2023 04:39:48 Hib, unspecified formulation 1 completed Not Available [facility] 05/16/2023 04:39:49 Hib, unspecified formulation 2 completed Not Available [facility] 05/16/2023 04:39:49 Hib, unspecified formulation 1 completed Not Available [facility] 05/16/2023 04:39:49 DTaP 1 completed Not Available [facility] 05/16/2023 04:39:50 DTaP 1 completed Not Available [facility] 05/16/2023 04:39:50 DTaP 6 completed Not Available [facility] 05/16/2023 04:39:50 DTaP 1 completed Not Available [facility] 05/16/2023 04:39:50 DTaP 2 completed Not Available [facility] 05/16/2023 04:39:50 COVID-19, mRNA, LNP-S, PF, 100 mcg/0.5mL dose or 50 mcg/0.25mL dose 1 completed Not Available [facility] 05/16/2023 04:39:50 COVID-19, mRNA, LNP-S, PF, 100 mcg/0.5mL dose or 50 mcg/0.25mL dose 2 completed Not Available [facility] 05/16/2023 04:39:51 SARS-COV-2 (COVID-19) vaccine, UNSPECIFIED 1 completed Not Available [facility] 05/16/2023 04:39:52 SARS-COV-2 (COVID-19) vaccine, UNSPECIFIED 1 completed Not Available [facility] 05/16/2023 04:39:52 Hep B, unspecified formulation 3 completed Not Available [facility] 05/16/2023 04:39:52 Hep B, unspecified formulation 3 completed Not Available [facility] 05/16/2023 04:39:52 Hep B, unspecified formulation 3 completed Not Available [facility] 05/16/2023 04:39:52 influenza, unspecified formulation 4 completed Not Available [facility] 05/16/2023 04:39:53 polio, unspecified formulation 1 completed Not Available [facility] 05/16/2023 04:39:53 polio, unspecified formulation 1 completed Not Available [facility] 05/16/2023 04:39:54 polio, unspecified formulation 6 completed Not Available [facility] 05/16/2023 04:39:54 polio, unspecified formulation 1 completed Not Available [facility] 05/16/2023 04:39:54 polio, unspecified formulation 2 completed Not Available [facility] 05/16/2023 04:39:54 rabies, unspecified formulation 5 completed Not Available [facility] 05/16/2023 04:39:55 rabies, unspecified formulation 5 completed Not Available [facility] 05/16/2023 04:39:55 Influenza, split virus, trivalent, PF [address], [place], [address], [facility] 06/29/2024 17:51:39 Influenza, split virus, quadrivalent, PF 3 completed Not Available [facility] 07/18/2023 05:33:06 COVID-19, mRNA, LNP-S, PF, kota-sucrose, 30 mcg/0.3 mL 3 completed Not Available [facility] 07/18/2023 05:33:07 Past Encounters Encounter ID Performer Location Encounter Start Date Encounter Closed Date Diagnosis/Indication Diagnosis SNOMED-CT Code Diagnosis ICD10 Code Diagnosis Note [id number] NAKIA SANTOS [facility] [address] [place] [address] 06/28/2024 11:23:42 06/28/2024 12:54:45 Hyponatremia 39192066 E87.1 will recheck this lab. Currently following 2.5 L fluid restrictio n. No signs of excess fluid status on exam. Pt. at baseline from mental status viewpoint. Medlist reconciled . Active or passive immunization 170104921 Z23 Mass lesion of brain 422 905052 R22.0 Pt. to f/u with neurosurge ry for evolving 3.5cm mass Health Concerns Section Related Observation LastModified by Organization Detai ls LastModified Time None Recorded Concern Status LastModified by Organization Details LastModified Time None Recorded Payers Encounter Date Sequence Insurance Name Policy Number Policy Soliman Covered Member ID Soliman Member ID Guarantor Name 06/28/2024 1 [facility] (MEDICAID) Miguel Angel Burgos [id number] Miguel Angel Burgos Notes Date Note Type Note Provider Name and Address Organization Details Recorded Time 06/28/2024 text/html Pt, 34-M, here f or [...] be a surgical candidate though. NAKIA SANTOS [address], [place], [address], [facility]. 06/29/2024 17:55:30
--- OUTSIDE RECORDS SUMMARY | 2024-07-22 13:38 | XMS_ITS | Encounter Summary ---
Author Organization [facility] Address [address] [place] [address] Care Team Providers Care Foundry Operator Name Role Phone Emilee Cody MD Primary Care Provider + Reason for Visit * Reason Onset Date Comments Discuss Test Results 06/25/201606/21 @[facility] Discuss Test Results 06/25/2016 Sodium Results 07/04/2016 Encounter Details Date Type Department Care Team (Late st Contact Info) Description 06/25/2016 Telephone [facility] Endocrinology - [facility] [address] [place] [address] Wilder Zaidi DO [address] [facility] [address] [place] [address] Discuss Test Results (06/21 @[facility]); Discuss Test Results (Sodium); Results Social History [...] Encounter - Jennifer Au RN - 07/10/2016 7491 EST Spoke to Jessika and relayed Dr. Pa recommendation to recheck labs in 3 months./JOSE * Telephone Encounter - Wilder Zaidi DO - 07/10/2016 1431 EST No change. Sodium in normal range. Recheck in 3 moths or if there is change in behavior or clinicalstatus. * Telephone Encounter - Jennifer Au RN - 07/10/2016 1317 EST Called [place] looking for latest sodium labs from 07/09. Sodium remains at 140. * Telephone Encounter - Jennifer Au RN - 07/08/2016 1009 EST Spoke with - at [place], confirming that Miguel Angel is on fluid restrictions of 110 ounces daily. Willhave sodium drawn tomorrow at [facility]. /JOSE * Telephone Encounter - Wilder [...] Maxine Roy - 07/04/2016 0927 EST Lali @[place] states his sodium level was drawn on 06/21 @[facility] and was at 140. Requesting Dr[address] Pa advice as to when to re-test. * Telephone Encounter - Patrica Mari - 07/03/2016 1501 EST Lali calling for Sodium test result. Please call. * Telephone Encounter - Maxine Roy - 06/25/2016 0900 EST Jose Manuel checking to see if the pt's lab results from 06/21 have been received from [facility]. documented in this encounter Plan of Treatment Upcoming Encounters Date Type Department Care Team (Late st Contact Info) Description 10/01/2024 13:40 EDT Office Visit [facility] Endocrinology - [facility] [address], [place] [id number] Wilder Zaidi, DO [address] [facility] [address] [place] [address] documented as of this encounter Visit Diagnoses Not on filedocumented in this encounter Care Teams Foundry Operator Relationship Specialty Start Date End Date Emilee Cody MD [address] [place] [address] PCP - General 03/15/16 09/29/18 documented as of this encounter
--- OUTSIDE RECORDS SUMMARY | 2024-07-22 13:38 | XMS_ITS | Encounter Summary ---
Author Organization [facility] Address [address] [place] [address] Care Team Providers Care Copy Camera Operator Name Role Phone Emilee Cody MD Primary Care Provider + Reason for Visit * Reason Onset Date Comments Medications Refill 05/27/2017 Encounter Details Date Type Department Care Team (Late st Contact Info) Description 05/27/2017 Refill [facility] Endocrinology - [facility] [address] [place] [address] Wilder Zaidi, [address] [facility] [address] [place] [address] Medications Refill Social History Tobacco [...] 10/01/2024 13:40 EDT Office Visit [facility] Endocrinology - [facility] [address] [place] [address] Wilder Zaidi, [address] [facility] [address] [place] [address] documented as of this encounter Visit Diagnoses Not on filedocumented in this encounter Discontinued Medications Medication Sig Discontinue Reason Start Date End Da te levothyroxine (SYNTHROID) 150 mcg tablet TAKE ONE TABLET BY MOUTH EVERY DAY/ Blister pack Reorder 07/12/2016 05/27/2017 documented as of this encounter Care Teams Copy Camera Operator Relationship Specialty Start Date End Date Emilee Cody MD [address] [place] [id number] PCP - General 03/15/16 09/29/18 documented as of this encounter
--- OUTSIDE RECORDS SUMMARY | 2024-07-22 13:38 | XMS_ITS | Encounter Summary ---
Author Organization [facility] Address [address] [place] [address] Care Team Providers Care Grain Shoveler Name Role Phone Ren Vaz MD Primary Care Provider [phone] Reason for Referral * (Routine/Next Available) - Receiving Office to Obtain Authorization Specialty Diagnoses / Procedures Referred By Contac t Referred To Contact Procedures XR OUTSIDE IMAGES DEXA Imaging, External Referral ID Status Reason Start Date Expiration Date Visits Requested Visits Authorized [id number] Receiving Office to Obtain Authorization 10/03/2023 1 1 Reason for Visit * (Routine/Next Available) - Receiving Office to Obtain Authorization Specialty Diagnoses / Procedures Referred By Contac t Referred To Contact Procedures XR OUTSIDE IMAGES DEXA Imaging, External Referral ID Status Reason Start Date Expiration Date Visits Requested Visits Authorized [id number] Receiving Office to Obtain Authorization 10/03/2023 1 1 Encounter Details Date Type Department Care Team (Latest Contact Info) Description 10/03/2023 15:30 EDT - 10/03/2023 23:59 EDT Hospital Encounter [facility] Radiology - Main [place] [address] [place], [place] [address] Discharge Disposition: Home or Self Care Social [...] this encounter Medications at Time of Discharge aspirin (ASPIRIN EC) 81 mg EC tablet [...] Take 2.5 Tablets by mouth daily. 08/24/2010 desmopressin (DDAVP) 0.1 mg tablet Take 0.5 Tabs by mouth 3 times daily. Take 1/2 tab three times daily 45 Tab 3 07/29/2013 docusate sodium (STOOL SOFTENER) 100 mg capsule Take 1 Capsule by mouth daily. ferrous gluconate (FERGON) 324 mg (38 mg iron) tablet Take 1 Tablet by mouth daily with breakfast. hydrocortisone (CORTEF) 10 mg tablet Take 1 [...] use one as needed for severe agitation 03/04/2023 QUEtiapine (SEROQUEL) 50 mg tabletIndications:G onadotropin deficiency (HCC-CMS),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HCC-CMS),Panhypopi tuitarism (HCC-CMS),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HCC-CMS),Secondary hypothyroidism Take 25 mg by mouth daily. Takes at 25 mg at noon zonisamide (ZONEGRAN) 100 mg capsule Take 1 Cap by mouth daily 90 Each 3 12/27/2014 acetaminophen (TYLENOL) 325 mg tablet Take 200 mg by mouth every 4 hours as needed for Pain or Fever. Reported on 10/31/2016 02/25/2011 4 cyclobenzaprine (FLEXERIL) 10 mg tablet Take 10 mg by mouth 3 times daily. 4 HYDROCODONE/ACETAMI NOPHEN (VICODIN ORAL) Take 5 mg by mouth. 4 quetiapine (SEROQUEL) 300 mg tablet Take 200 mg by mouth at bedtime. 08/24/2010 4 sennosides (SENEXON ORAL) Take by mouth. 4 testosterone (ANDROGEL) 1 % (50 mg/5 gram) gel packet Apply 5 g topically daily. 4 testosterone (ANDROGEL) 20.25 mg/1.25 gram (1.62 %) transdermal gel pumpIndications:Guillen hypopituitarism (HCC-CMS) Apply 3 pump actuations topically daily for 90 days Daily Max: 60.75 mg 337.5 g 0 03/15/2015 4 traZODone (DESYREL) 50 mg tabletIndications:G onadotropin deficiency (HCC-CMS),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HCC-CMS),Panhypopi tuitarism (HCC-CMS),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HCC-CMS),Secondary hypothyroidism Take 100 mg by mouth daily. 4 documented as of this encounter Discharge Disposition Disposition Code Departure Means Destination Home or Self Care documented in this encounter Plan of Treatment Upcoming Encounters Date Type Department Care Team (Late st Contact Info) Description 10/01/2024 13:40 EDT Office Visit [facility] Endocrinology - [place] [address] [place], [place] [id number] Wilder Zaidi, DO [address] [place] [address] documented as of this encounter Procedures Procedure Name Priority Date/Time Associated Diagnosis Comments XR OUTSIDE IMAGES DEXA Routine 10/03/2023 15:30 EDT documented in this encounter Results * XR OUTSIDE IMAGES DEXA (10/03/2023 15:30 EDT) Narrative DONGKIERSTENCHIDI - 10/03/2023 15:30 EDT This is a non-reportable exam. us External Imaging IMG OTHER IMAGING ORDERABLES Fi nal Result KESCHIDI documented in this encounter Visit Diagnoses Not on filedocumented in this encounter Care Teams Grain Shoveler Relationship Specialty Start Date End Date Ren Vaz MD [place] [address] PCP - General 09/30/18 documented as of this encounter
--- OUTSIDE RECORDS SUMMARY | 2024-07-22 13:38 | XMS_ITS | Encounter Summary ---
Author Organization [facility] Address [address] [place] [address] Care Team Providers Care Radio/Tv Technician Name Role Phone Ren Vaz MD Primary Care Provider [phone] Reason for Visit * Reason Comments Pituitary Abnormality Encounter Details Date Type Department Care Team (Latest Contact Info) Description 10/01/2018 13:20 EDT Office Visit [facility] Endocrinology - [facility] [address] [place] [address] Wilder Zaidi, DO [address] [facility] [address] [place] [address] 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HCC-CMS) (Primary Dx); Primary [...] directly via e-mail with any scheduling issues ([email or web address]) documented in this encounter Progress Notes * [...] currently living in his own home in [place], [place]. He has 2 caretakers are with him 24 hours a day and administer all of his medications. Appears to be doing extremely well. This is the most interactive I seen Miguel Angel in any visit in the manyyears I been taking care of him. Unfortunately, Miguel Angel was hospitalized at [facility] from 09/02/2017 until 03/12/2018 due to [...] as his follow- up endocrinology visit at [facility]. ?? With regards to his secondary [...] unchanged. No need to stress dose. His mechatronics technician was able to articulate how and when [...] the [facility] despite living in [place]. However, if he is hospitalized he will likely be sent to [facility] and I be happy to coordinate with our endocrinology group as needed. documented in this encounter Plan of Treatment Upcoming Encounters Date Type Department Care Team (Late st Contact Info) Description 10/01/2024 13:40 EDT Office Visit [facility] Endocrinology - [facility] [address] [place], [place] [id number] Wilder Zaidi, [address] [facility] [address] [place] [address] documented as of this encounter Visit Diagnoses Diagnosis 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HCC-CMS)- Primary Panhypopituitarism 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HCC-CMS) Diabetes insipidus Gonadotropin deficiency (HCC-CMS) Other anterior pituitary disorders Secondary hypothyroidism Other specified acquired hypothyroidism Secondary adrenal insufficiency (HCC-CMS) Glucocorticoid deficiency documented in this encounter Historical Medications * This list may reflect changes made after this encounter. calcium carbonate (TUMS) 200 mg calcium (500 [...] tablet Take 25 mg by mouth daily. cyclobenzaprine (FLEXERIL) 10 mg tablet Take 10 mg by mouth 3 times daily. 07/06/2024 added in this encounter Care Teams Radio/Tv Technician Relationship Specialty Start Date End Date Ren Vaz MD [address] [place] [address] PCP - General 09/30/18 documented as of this encounter
--- OUTSIDE RECORDS SUMMARY | 2024-07-22 13:38 | XMS_ITS | Encounter Summary ---
Author Organization [facility] Address [address] [place] [address] Care Team Providers Care Tab Cutter Name Role Phone Ren Vaz MD Primary Care Provider [phone] Reason for Visit * Reason Onset Date Comments Requesting Sooner Appointment 05/21/2019 Patient Information Update 05/21/2019 Encounter Details Date Type Department Care Team (Late st Contact Info) Description 05/21/2019 Telephone [facility] Endocrinology - [address] [id number] Lesley Jeffrey RN Requesting Sooner Appointment; Patient [...] any day next week as I am action finisher and have no patients scheduled in the morning. Please send me an email confirming date and time of appointment so I can put on my calendar. * Telephone Encounter - Lesley Jeffrey RN - 05/21/2019 1059 EST Images from the original note were not included. Message received from PAC : Cam Pisano 10:29 []Hide copied text []Hover for details Nutrition Aide calling on behalf of client to get sooner FUR w/Dr Zaidi. Soonest this specification writer could schedule was September 2019. ?? Stated patient had 'an incident' that would qualify him for sooner appt date and that Dr Zaidi knows about this patient's history and would want to see him sooner than that. ?? Asked for nurse to call her back as well as project controls scheduler for sooner appt date Returning call to renal case manager 05/21/19 10:37 Structural Analyst and specification writer identified that the patient that was [...] that had originally been sent to this specification writer LESLEY COURTNEY RN 05/21/2019 11:01 documented in this encounter Plan of Treatment Upcoming Encounters Date Type Department Care Team (Late st Contact Info) Description 10/01/2024 13:40 EDT Office Visit [facility] Endocrinology - [place] [address] [place] [address] Wilder Zaidi, DO [address] [place] [address] documented as of this encounter Visit Diagnoses Not on filedocumented in this encounter Care Teams Tab Cutter Relationship Specialty Start Date End Date Ren Vaz MD [facility] [address] [facility] [address] PCP - General 09/30/18 documented as of this encounter
--- OUTSIDE RECORDS SUMMARY | 2024-07-22 13:38 | XMS_ITS | Encounter Summary ---
Author Organization [facility] Address [address] [place] [address] Care Team Providers Care Decal Transferrer Name Role Phone Ren Vaz MD Primary Care Provider [phone] Reason for Visit * Reason Onset Date Comments Coordination Of Care 03/24/2019 Encounter Details Date Type Department Care Team (Late st Contact Info) Description 03/24/2019 Telephone [facility] - [facility] [address] [place] [address] Wilder Zaidi, [address] [facility] [address] [place] [address] Coordination Of Care Social History [...] and go to the emergency department. Instructed credit office manager to call back with any questions. [...] 1313 EDT Called and left message for credit office manager to call back. * Telephone Encounter [...] and possibly have Dr. Zaidi call the [facility] but would like to speak to a nurse first Please call Evelyn back SHEEBA documented in this encounter Plan of Treatment Upcoming Encounters Date Type Department Care Team (Late st Contact Info) Description 10/01/2024 13:40 EDT Office Visit [facility] - [facility] [address] [place] [address] Wilder Zaidi, [address] [facility] [address] [place] [address] documented as of this encounter Visit Diagnoses Not on filedocumented in this encounter Care Teams Decal Transferrer Relationship Specialty Start Date End Date Ren Vaz MD [facility] [place] [address] PCP - General 09/30/18 documented as of this encounter
--- OUTSIDE RECORDS SUMMARY | 2024-07-22 13:38 | XMS_ITS | Encounter Summary ---
Author Organization [facility] Address [address] [place] [address] Care Team Providers Care Locks Inspector Name Role Phone Ren Vaz MD Primary Care Provider [phone] Reason for Visit * Reason Onset Date Comments Labs Only 03/03/2019 Encounter Details Date Type Department Care Team (Late st Contact Info) Description 03/03/2019 Telephone [facility] Endocrinology - [facility] [address] [place] [address] Wilder Zaidi, DO [address] [facility] [address] [place] [address] Labs Only Social History Tobacco [...] - Carlos Alberto Benitez RN - 03/03/2019 5343 EDT Called and left message for Evelyn relaying Dr. Zaidi's message below: Would have electrolytes drawn every 3 months with a as needed order if there is any significant change in behavior Standing lab orders for electrolytes faxed to [facility] as requested for Electrolytes as requested. Labs printed and faxed to [facility] * Telephone Encounter - Wilder Zaidi Do - 03/03/2019 3577 EDT Would have electrolytes drawn every 3 months with a as needed order if there is any significant change in behavior * Telephone Encounter - Alicia Chi - 03/03/2019 1424 EDT Per Evelyn, please fax lab orders to [facility] [phone]. Per Evelyn, needs toknow when his last lab was done and if received as well as how often he should be having the labs done. Evelyn is requesting a call back today when a moment. documented in this encounter Plan of Treatment Upcoming Encounters Date Type Department Care Team (Late st Contact Info) Description 10/01/2024 13:40 EDT Office Visit [facility] Endocrinology - [facility] [address] [place] [address] Wilder Zaidi DO [address] 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
--- OUTSIDE RECORDS SUMMARY | 2024-07-22 13:38 | XMS_ITS | Encounter Summary ---
Author Organization [facility] Address [address] [place] [address] Care Team Providers Care Bus And Rail Operator Name Role Phone Ren Vaz MD Primary Care Provider [phone] Reason for Visit * Reason Comments Other Secondary adrenal in sufficiency * Referral (Routine) - Receiving Office to Obtain Authorization Specialty Diagnoses / Procedures Referred By Duyen bui Referred To Contact Endocrinology Diagnoses 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HCC-CMS) Ren Vaz MD [address] [place] [address] [place] [address] Phone: tel: fax: [facility] Endocrinology [address] [address] Phone: tel: fax: Referral ID Status Reason Start Date Expiration Date Visits Requested Visits Authorized [id number] Receiving Office to Obtain Authorization 1 1 Encounter Details Date Type Department Care Team (Latest Contact Info) Description 03/06/2023 15:00 EDT Office Visit [facility] Endocrinology [address] [address] Jono Sanchez MD [address] [place] [phone] 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HCC-CMS) (Primary Dx); Secondary adrenal insufficiency (HCC-CMS); 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HCC-CMS); Gonadotropin deficiency ([facility]) Social History Tobacco Use Types [...] ff up CC: Mr. Miguel Angel Burgos Trena is a 32 y.o. male, who was [...] transferred on november 2020 to a [facility] [place] [facility]. No hospitalization No new med Current med [...] Info) Description 10/01/2024 13:40 EDT Office Visit [facility] Endocrinology - [facility] [address] [place] [address] Wilder Zaidi, [address] [facility] [address] [place] [address] documented as of this encounter [...] one as needed for severe agitation 03/04/2023 Prazosin (MINIPRESS) 2 mg capsule 03/03/2023 added in this encounter Care Teams Bus And Rail Operator Relationship Specialty Start Date End Date Ren Vaz MD [facility] [place] [address] PCP - General 09/30/18 documented as of this encounter
--- OUTSIDE RECORDS SUMMARY | 2024-07-22 13:38 | XMS_ITS | Encounter Summary ---
Author Organization [facility] Address [address] [place] [address] Care Team Providers Care Pie Dough Roller Name Role Phone Ren Vaz MD Primary Care Provider [phone] Reason for Visit * Reason Onset Date Comments Follow-up 01/04/2020 Encounter Details Date Type Department Care Team (Late st Contact Info) Description 01/04/2020 Telephone [facility] Endocrinology - [facility] [address] [place] [address] Wilder Zaidi, [address] [facility] [address] [place] [address] Follow-up Social History Tobacco Use [...] progress note printed. Both documents faxed to [phone] by this junior technical writer. Informed to call back if needs more information. LESLEY COURTNEY RN 01/04/2020 16:49 * Telephone Encounter - Lesley Jeffrey RN - 01/04/2020 1315 EDT Kwesi calling from [facility] 01/04/20 13:16 Need a referral to be able to draw the lab requisitions that were electronically faxed 01/04/20 by this junior technical writer. [facility] 1. Facility needs referral to be completed/signed by provider 2. Include last progress note 3. Attention : not necessary Kwesi will be faxing the referral to [phone]. The fax will be to this junior technical writer's attention. Referral received 01/04/20 at 12:18. Form will be handed to the provider. LESLEY COURTNEY RN 01/04/2020 13:21 * Telephone Encounter - Debbie Choudhary - 01/04/2020 1313 EDT Raphael calling back for Lesley. documented in this encounter Plan of Treatment Upcoming Encounters Date Type Department Care Team (Late st Contact Info) Description 10/01/2024 13:40 EDT Office Visit [facility] Endocrinology - [address] [address] Wilder Zaidi, DO [address] [facility] [address] [place] [address] documented as of this encounter Visit Diagnoses Not on filedocumented in this encounter Care Teams Pie Dough Roller Relationship Specialty Start Date End Date Ren Vaz MD [address] [place] [address] PCP - General 09/30/18 documented as of this encounter
--- OUTSIDE RECORDS SUMMARY | 2024-07-22 13:38 | XMS_ITS | Encounter Summary ---
Author Organization [facility] Address [address] [place] [address] Care Team Providers Care Sanding Machine Operator Or Tender Name Role Phone Ren Vaz MD Primary Care Provider [phone] Reason for Visit * Reason Onset Date Comments Results 03/10/2019 Encounter Details Date Type Department Care Team (Late st Contact Info) Description 03/10/2019 Telephone [facility] Endocrinology - [facility] [address] [place] [address] Wilder Zaidi, DO [address] [facility] [address] [place] [address] Results Social History Tobacco Use [...] 1237 EDT Called and spoke with pt manager rn case and relayed Dr. Zaidi's message below: Please contact patient's caregivers. The patient Miguel Angel is nonverbal. Please advise him that I have reviewed his blood work obtained at [facility] [place] [facility] drawn on 03/04/2019. His sodium was stable at 144. They should continue his current dose of DDAVP and fluid restriction. Repeat sodium in 3 months unless there is any significant changes in his behavior or urine output etc. Please advise his caretakers to contact me with any questions or concerns Patient manager rn case verbalized understanding. No barriers to learning noted. * Telephone Encounter - Wilder Zaidi Do - 03/10/2019 0933 EDT Please contact patient's caregivers. The patient Miguel Angel is nonverbal. Please advise him that I have reviewed his blood work obtained at [facility] [place] [facility] drawn on 03/04/2019. His sodium was stable [...] Info) Description 10/01/2024 13:40 EDT Office Visit [facility] Endocrinology - [facility] [address] [place] [address] Wilder Zaidi DO [address] [facility] [address] [place] [address] documented as of this encounter Visit Diagnoses Not on filedocumented in this encounter Care Teams Sanding Machine Operator Or Tender Relationship Specialty Start Date End [place] [address] PCP - General 09/30/18 documented as of this encounter
--- OUTSIDE RECORDS SUMMARY | 2024-07-22 13:38 | XMS_ITS | Encounter Summary ---
Author Organization [facility] Address [address] [place] [address] Care Team Providers Care Fourth Hand Name Role Phone Emilee Cody MD Primary Care Provider + Reason for Visit * Reason Onset Date Comments Medication Problem 07/12/2016 needs overrid e Encounter Details Date Type Department Care Team (Late st Contact Info) Description 07/12/2016 Telephone [facility] Endocrinology - [facility] [address] [place] [address] Wilder Zaidi, [address] [facility] [address] [place] [address] Medication Problem (needs override) Social [...] Info) Description 10/01/2024 13:40 EDT Office Visit [facility] Endocrinology - [address] [address] Wilder Zaidi, [address] [facility] [address] [place] [address] documented as of this encounter Visit Diagnoses Not on filedocumented in this encounter Discontinued Medications Medication Sig Discontinue Reason Start Date End Da te levothyroxine (SYNTHROID) 150 mcg tablet TAKE ONE TABLET BY MOUTH EVERY DAY/ Blister pack Reorder 06/14/2016 07/12/2016 documented as of this encounter Care Teams Fourth Hand Relationship Specialty Start Date End Date Emilee Cody MD [address] [place] [address] PCP - General 03/15/16 09/29/18 documented as of this encounter
--- OUTSIDE RECORDS SUMMARY | 2024-07-22 13:38 | XMS_ITS | Encounter Summary ---
Author Organization [facility] Address [address] [place] [address] Care Team Providers Care Keno Dealer Name Role Phone Ren Vaz MD Primary Care Provider Reason for Referral * Radiology Services (Routine/Next Available) - Specialty Report Received Specialty Diagnoses / Procedures Referred By Duyen bui Referred To Contact Diagnoses History of pituitary surgery Craniopharyngioma (HCC-CMS) Procedures CT HEAD WO CONTRAST Day Littlejohn MD PhD Phone: tel: fax: Referral ID Status Reason Start Date Expiration Date V isits Requested Visits Authorized [id number] Specialty Report Received 09/04/2023 1 1 * Radiology Services (Routine/Next Available) - Specialty Report Received Specialty Diagnoses / Procedures Referred By Duyen bui Referred To Contact Diagnoses 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 Procedures DXA BONE DENSITY Day Littlejohn MD PhD Phone: tel: fax: Referral ID Status Reason Start Date Expiration Date V isits Requested Visits Authorized [id number] Specialty Report Received 1 1 Reason for Visit * Reason Comments Other Panhypopituitarism Encounter Details Date Type Department Care Team (Latest Contact Info) Description 09/04/2023 10:00 EST Office Visit [facility] Endocrinology - [facility] [address] [facility] [address] [place], [place] [id number] Day Littlejohn MD PhD [address] [facility] [address] [place] [address] 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); [...] and [address] hd-at [facility] ([facility]) Order a bone dexascan to see if [...] mentation, seizure disorder. He lives in a fpc, usually sees Dr. Zaidi. Central Diabetes Insipidus-On [...] risk due to vision/gait. Dexascan ordered at [facility]-warned may not have there. LOsat scan showed osteopenia-on Ca/D. Will update and see if worsening. CT ordered--will avoid MRI due to enclosure/noise that may startle him. Day Littlejohn MD PhD 09/04/2023 13:14 documented in this encounter Plan of Treatment Upcoming Encounters Date Type Department Care Team (Late st Contact Info) Description 10/01/2024 13:40 EDT Office Visit [facility] Endocrinology - [address] [place] [address] Shonjalyn Wilder Erik, [address] [facility] [address] [place] [address] Scheduled Orders Name Type Priority [...] daily. added in this encounter Care Teams Keno Dealer Relationship Specialty Start Date End Date Ren Vaz MD [facility] [place] [address] PCP - General 09/30/18 documented as of this encounter
--- OUTSIDE RECORDS SUMMARY | 2024-07-22 13:38 | XMS_ITS | Encounter Summary ---
Author Organization [facility] Address [address] [place] [address] Care Team Providers Care Banquet Bartender Name Role Phone Ren Vaz MD Primary Care Provider [phone] Reason for Visit * Reason Comments Hypogonadism Encounter Details Date Type Department Care Team (Latest Contact Info) Description 03/04/2024 11:00 EDT Office Visit [facility] Endocrinology - [address] [id number] Day Littlejohn MD PhD [address] [facility] [address] [place] [address] Hypopituitarism involving multiple pituitary deficiencies [...] Miguel Angel Burgos Jr. 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 Hypopituitarism involving multiple pituitary deficiencies ([facility]) E23.0 253.2 Since he is Hypogonadal, [...] Info) Description 10/01/2024 13:40 EDT Office Visit [facility] Endocrinology - [address] [address] Wilder Zaidi, [address] [facility] [address] [place] [address] Scheduled Orders Name Type Priority [...] Take 1 Tablet by mouth daily. 07/06/2024 added in this encounter Care Teams Banquet Bartender Relationship Specialty Start Date End Date Ren Vaz MD [address] [place], [place] [address] [address] PCP - General 09/30/18 documented as of this encounter
--- OUTSIDE RECORDS SUMMARY | 2024-07-22 13:38 | XMS_ITS | Encounter Summary ---
Author Organization [facility] Address [address] [place] [address] Care Team Providers Care Production Wood Craftsman Name Role Phone eRn Vaz MD Primary Care Provider [phone] Reason for Visit * Reason Comments Pituitary Abnormality Encounter Details Date Type Department Care Team (Latest Contact Info) Description 05/26/2019 11:40 EST Office Visit [facility] Endocrinology - [facility] [address] [place] [address] Jr Salas, DO [address] [facility] [address] [place] [address] Secondary adrenal insufficiency (HCC-CMS) (Primary [...] 5. Dr. Salas to schedule DXA at [facility] documented in this encounter Progress Notes * [...] currently living in his own home in [place], [place]. He has 2 caretakers are with [...] imtiaz. Unfortunately, Miguel Angel was hospitalized at [facility] from 09/02/2017 until 03/12/2018 due to [...] as his follow- up endocrinology visit at [facility]. ?? With regards to his secondary [...] receive his endocrine care here at the [facility] despite living in [place]. However, if he is hospitalized he will likely be sent to [facility] and I be happy to coordinate with our endocrinology group as needed. 8. Will obtain previous DEXA scan performed at [facility] and reorder scan. 9. Given his testosterone deficiency, secondary to insufficiency, and history of fracture. Once I have his DEXA data I think a one-time consultation to the metabolic bone clinic to discuss bone health and subsequent need for possible treatment is prudent. This will be done here at the [facility] endocrine clinic. documented in this encounter Miscellaneous Notes * Addendum Note - Jr Salas DO - 05/26/2019 1140 ESTAddended by: JR SALAS on: 05/26/2019 12:45 Modules accepted: Orders documented in this encounter Plan of Treatment Upcoming Encounters Date Type Department Care Team (Late st Contact Info) Description 10/01/2024 13:40 EDT Office Visit [facility] Endocrinology - [facility] [address] [place], [place] [id number] Jr Salas DO [address] [facility] [address] [place] [phone] documented as of this encounter Visit Diagnoses [...] 1 Tablet by mouth 4 times daily. magnesium gluconate (MAG-G ORAL) Take 250 mg by mouth 2 times daily. sennosides (SENEXON ORAL) Take by mouth. 07/06/2024 added in this encounter Care Teams Production Wood Craftsman Relationship Specialty Start Date End Date Ren Vaz MD [facility] [place] [address] PCP - General 09/30/18 documented as of this encounter
--- OUTSIDE RECORDS SUMMARY | 2024-07-22 13:38 | XMS_ITS | Encounter Summary ---
Author Organization [facility] Address [address] [place] [address] Care Team Providers Care Collar Tacker Name Role Phone Emilee Cody MD Primary Care Provider + Reason for Visit * Reason Onset Date Comments Follow-up 12/19/2016 Encounter Details Date Type Department Care Team (Late st Contact Info) Description 12/19/[address] [facility] Endocrinology - [facility] [address] [place] [address] Wilder Zaidi DO [address] [facility] [address] [place] [address] Follow-up Social History Tobacco Use [...] 12/19/2016 1028 EDT Please contact the patient's chcf. I reviewed his most recent sodium that was drawn on 12/18/2016 at [facility] and [place], [place]. His sodium was normal at 141. He should continue his current dose of DDAVP and current fluid levels. documented in this encounter Plan of Treatment Upcoming Encounters Date Type Department Care Team (Late st Contact Info) Description 10/01/2024 13:[address] [facility] Endocrinology - [facility] [address] [place] [address] Wilder Zaidi DO [address] [facility] [address] [place] [address] documented as of this encounter Visit Diagnoses Not on filedocumented in this encounter Care Teams Collar Tacker Relationship Specialty Start Date End Date Emilee Cody MD [address] [place] [address] PCP - General 03/15/16 09/29/18 documented as of this encounter
--- OUTSIDE RECORDS SUMMARY | 2024-07-22 13:38 | XMS_ITS | Encounter Summary ---
Author Organization [facility] Address [address] [place] [address] Care Team Providers Care Chucker Name Role Phone Emilee Cody MD Primary Care Provider + Reason for Visit * Reason Onset Date Comments Appointment Related 07/14/2018 cancelled 07/15 appt Encounter Details Date Type Department Care Team (Late st Contact Info) Description 07/14/2018 Telephone [facility] Endocrinology - [facility] [address] [place] [address] Wilder Zaidi DO [address] [facility] [address] [place] [address] Appointment Related (cancelled 07/15 appt) [...] Artis - 07/14/2018 1703 EST Patients case maker called to cancel an appt for 07/[address] Zaidi as the patient also had an appt at [facility] Endocrinology for the same time documented in this encounter Plan of Treatment Upcoming Encounters Date Type Department Care Team (Late st Contact Info) Description 10/01/2024 13:40 EDT Office Visit [facility] Endocrinology - [facility] [address] [place] [address] Wilder Zaidi, [address] [facility] [address] [place] [address] documented as of this encounter Visit Diagnoses Not on filedocumented in this encounter Care Teams Chucker Relationship Specialty Start Date End Date Emilee Cody MD [address] [place] [address] PCP - General 03/15/16 09/29/18 documented as of this encounter
--- OUTSIDE RECORDS SUMMARY | 2024-07-22 13:38 | XMS_ITS | Encounter Summary ---
Author Organization [facility] Address [address] [place] [address] Care Team Providers Care Corporate Development Intern Name Role Phone Ren Vaz MD Primary Care Provider [phone] Reason for Visit * Reason Onset Date Comments Appointment Related 11/19/2019 Encounter Details Date Type Department Care Team (Late st Contact Info) Description 11/19/2019 Telephone [facility] Endocrinology - [facility] [address] [place] [address] Wilder Zaidi, DO [address] [facility] [address] [place] [address] Appointment Related Social History Tobacco [...] Tomasa Merrill - 11/19/2019 1347 EDT 11/19/2019- [facility] for patient to call back to change 11/26/2019 Dr. Zaidi appointment to a televideo visit. documented in this encounter Plan of Treatment Upcoming Encounters Date Type Department Care Team (Late st Contact Info) Description 10/01/2024 13:40 EDT Office Visit [facility] Endocrinology - [address] [address] Wilder Zaidi, [address] [place] [address] [address] [place] [phone] documented as of this encounter Visit Diagnoses Not on filedocumented in this encounter Care Teams Corporate Development Intern Relationship Specialty Start Date End Date Ren Vaz MD [facility] [place] [address] PCP - General 09/30/18 documented as of this encounter
--- OUTSIDE RECORDS SUMMARY | 2024-07-22 13:38 | XMS_ITS | Encounter Summary ---
Author Organization [facility] Address [address] [place] [address] Care Team Providers Care Pre Sales Network Engineer Name Role Phone Emilee Cody MD Primary Care Provider + Reason for Visit * Reason Onset Date Comments Orders (Non Pre-visit) 06/21/2016 Encounter Details Date Type Department Care Team (Late st Contact Info) Description 06/21/2016 Telephone [facility] Endocrinology - [facility] [address] [place] [address] Wilder Zaidi, [address] [facility] [address] [place] [address] Orders (Non Pre-visit) Social [...] Telephone Encounter - Gladys Willingham - 06/21/2016 9086 EST Reason for Call: Orders (Non Pre-visit) Summary/Symptoms: Pt needs lab orders faxed to [facility] @ [phone]. Gladys Willingham 06/21/2016 9:28 documented in this encounter Plan of Treatment Upcoming Encounters Date Type Department Care Team (Late st Contact Info) Description 10/01/2024 13:40 EDT Office Visit [facility] Endocrinology - [facility] [address] [place] [address] Wilder Zaidi, [address] [facility] [address] [place] [address] documented as of this encounter Visit Diagnoses Diagnosis 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HCC-CMS)- Primary Panhypopituitarism documented in this encounter Care Teams Pre Sales Network Engineer Relationship Specialty Start Date End Date Emilee Cody MD [address] [place] [address] PCP - General 03/15/16 09/29/18 documented as of this encounter
--- OUTSIDE RECORDS SUMMARY | 2024-07-22 13:38 | XMS_ITS | Encounter Summary ---
Author Organization [facility] Address [address] [place] [address] Care Team Providers Care Plate Glass Installer Name Role Phone Emilee Cody MD Primary Care Provider + Reason for Visit * Reason Onset Date Comments Update 04/08/2016 Going to ED Sinus Problems 04/08/2016 Difficulty Walking 04/08/2016 Encounter Details Date Type Department Care Team (Late st Contact Info) Description 04/08/2016 Telephone [facility] Endocrinology - [facility] [address] [place] [address] Wilder Zaidi, [address] [facility] [address] [place] [address] Update (Going to ED); Sinus [...] Info) Description 10/01/2024 13:40 EDT Office Visit [facility] Endocrinology - [address] [address] Wilder Zaidi DO [address] [facility] [address] [place] [address] documented as of this encounter Visit Diagnoses Not on filedocumented in this encounter Care Teams Plate Glass Installer Relationship Specialty Start Date End Date Emilee Cody MD [address] [place] [address] PCP - General 03/15/16 09/29/18 documented as of this encounter
--- OUTSIDE RECORDS SUMMARY | 2024-07-22 13:38 | XMS_ITS | Encounter Summary ---
Author Organization [facility] Address [address] [place] [address] Care Team Providers Care Fire Prevention Forester Name Role Phone Emilee Cody MD Primary Care Provider + Reason for Visit * Reason Onset Date Comments Medications Refill 05/01/2016 Encounter Details Date Type Department Care Team (Late st Contact Info) Description 05/01/2016 Refill [facility] Endocrinology - [facility] [address] [place] [address] Wilder Zaidi, [address] [facility] [address] [place] [address] Medications Refill Social History Tobacco [...] Info) Description 10/01/2024 13:40 EDT Office Visit [facility] Endocrinology - [facility] [address] [place] [address] Wilder Zaidi, [address] [facility] [address] [place] [address] documented as of this encounter Visit Diagnoses Not on filedocumented in this encounter Discontinued Medications Medication Sig Discontinue Reason Start Date End Da te levothyroxine (SYNTHROID) 150 mcg tablet TAKE ONE TABLET BY MOUTH EVERY DAY Reorder 03/18/2016 05/01/2016 documented as of this encounter Care Teams Fire Prevention Forester Relationship Specialty Start Date End Date Emilee Cody MD [address] [place] [address] PCP - General 03/15/16 09/29/18 documented as of this encounter
--- OUTSIDE RECORDS SUMMARY | 2024-07-22 13:38 | XMS_ITS | Encounter Summary ---
Author Organization [facility] Address [address] [place] [address] Care Team Providers Care Dietitian Consultant Name Role Phone Emilee Cody MD Primary Care Provider + Reason for Visit * Reason Onset Date Comments Results 06/02/2017 Encounter Details Date Type Department Care Team (Late st Contact Info) Description 06/02/2017 Telephone [facility] Endocrinology - [facility] [address] [place] [address] Wilder Zaidi DO [address] [facility] [address] [place] [address] Results Social History Tobacco Use [...] Encounter - Jennifer Au RN - 06/03/2017 9666 EST Relayed to phone manager of [facility] the sodium results of 05/28 with no [...] Info) Description 10/01/2024 13:40 EDT Office Visit [facility] Endocrinology - [facility] [address] [place] [address] Wilder Zaidi DO [address] [facility] [address] [place] [address] documented as of this encounter Visit Diagnoses Not on filedocumented in this encounter Care Teams Dietitian Consultant Relationship Specialty Start Date End Date Emilee Cody MD [address] [place] [address] PCP - General 03/15/16 09/29/18 documented as of this encounter
--- OUTSIDE RECORDS SUMMARY | 2024-07-22 13:38 | XMS_ITS | Encounter Summary ---
Author Organization [facility] Address [address] [place] [address] Care Team Providers Care Visual Educator Name Role Phone Ren Vaz MD Primary Care Provider [phone] Encounter Details Date Type Department Care Team (Late st Contact Info) Description 07/30/2019 Lab Requisition [facility] Pathology & Laboratory Medicine - [address] [address] Rachana Cuello MD Social History Tobacco Use Types Packs/Day [...] 10/01/2024 13:40 EDT Office Visit [facility] Endocrinology - [place] [address] [place] [address] Wilder Zaidi, DO [address] [place] [address] documented as of this encounter Procedures Procedure Name Priority Date/Time Associated Diagnosis Comments HEPATITIS C AB W REFLEX TO HCV RNA BY PCR Routine 07/30/2019 11:59 EST HEPATITIS B SURFACE ANTIGEN Routine 07/30/2019 11:59 EST documented in this encounter Results * HEPATITIS B SURFACE ANTIGEN (07/30/2019 11:59 EST) Hep B Surface Ag Negative Negative 08/02/2019 9:49 EST [facility] Blood VENOUS BLOOD / Unknown 07/30/2019 11:59 EST 07/30/2019 16:46 EST us Rachana Robb MD CHEMISTRY & BLOOD GAS ORDERABLES Final Result Performing Organization Address City/[facility]/ZIP Co de Phone Number [facility] [address] [place] [phone] * HEPATITIS C AB W REFLEX TO HCV RNA BY PCR (07/30/2019 11:59 EST) Hep C Antibody Negative Negative 08/02/2019 11:26 EST [facility] Blood VENOUS BLOOD / Unknown 07/30/2019 11:59 EST 07/30/2019 16:45 EST us Rachana Robb MD CHEMISTRY & BLOOD GAS ORDERABLES Final Result Performing Organization Address City/[facility]/ZIP Co de Phone Number [facility] [address] [place] [address] documented in this encounter Visit Diagnoses Not on filedocumented in this encounter Care Teams Visual Educator Relationship Specialty Start Date End Date [place] [address] PCP - General 09/30/18 documented as of this encounter
--- OUTSIDE RECORDS SUMMARY | 2024-07-22 13:38 | XMS_ITS | Encounter Summary ---
Author Organization [facility] Address [address] [place] [address] Care Team Providers Care Auto Club Safety Program Coordinator Name Role Phone Ren Vaz MD Primary Care Provider [phone] Reason for Referral * (Routine/Next Available) - Receiving Office to Obtain Authorization Specialty Diagnoses / Procedures Referred By Contac t Referred To Contact Procedures CT OUTSIDE IMAGES HEAD Imaging, External Referral ID Status Reason Start Date Expiration Date Visits Requested Visits Authorized [id number] Receiving Office to Obtain Authorization 10/03/2023 1 1 Reason for Visit * (Routine/Next Available) - Receiving Office to Obtain Authorization Specialty Diagnoses / Procedures Referred By Contac t Referred To Contact Procedures CT OUTSIDE IMAGES HEAD Imaging, External Referral ID Status Reason Start Date Expiration Date Visits Requested Visits Authorized [id number] Receiving Office to Obtain Authorization 10/03/2023 1 1 Encounter Details Date Type Department Care Team (Latest Contact Info) Description 10/03/2023 15:30 EDT - 10/03/2023 23:59 EDT Hospital Encounter [facility] Secondary [place] Discharge Disposition: Home or [...] Office Visit [facility] Endocrinology - [place] [address] [place] [address] Wilder Zaidi, DO [address] [place] [address] documented as of this encounter [...] filedocumented in this encounter Care Teams Auto Club Safety Program Coordinator Relationship Specialty Start Date End Date Ren [place] [address] PCP - General 09/30/18 documented as of this encounter
--- OUTSIDE RECORDS SUMMARY | 2024-07-22 13:38 | XMS_ITS | Encounter Summary ---
Author Organization [facility] Address [address] [place] [address] Care Team Providers Care Automatic Oven Operator Name Role Phone Emilee Cody MD Primary Care Provider + Reason for Visit * Reason Onset Date Comments Results 04/14/2017 Encounter Details Date Type Department Care Team (Late st Contact Info) Description 04/14/2017 Telephone [facility] Endocrinology - [address] [address] Hafsa Babcock RN [address] [place] [address] Results Social History Tobacco Use Types Packs/Day [...] Encounter - Hafsa Babcock RN - 04/14/2017 9982 EDT Called Patients' sister Bettina to inform her lab results within normal limits , No change in DDAVP dosage. Please extend information to penitentiary. documented in this encounter Plan of Treatment Upcoming Encounters Date Type Department Care Team (Late st Contact Info) Description 10/01/2024 13:40 EDT Office Visit [facility] Endocrinology - [address], [place] [id number] Wilder Zaidi DO [address] [place] [address] documented as of this encounter Visit Diagnoses Not on filedocumented in this encounter Care Teams Automatic Oven Operator Relationship Specialty Start Date End Date Emilee Cody MD [address] [place] [address] PCP - General 03/15/16 09/29/18 documented as of this encounter
--- OUTSIDE RECORDS SUMMARY | 2024-07-22 13:38 | XMS_ITS | Encounter Summary ---
Author Organization [facility] Address [address] [place] [address] Care Team Providers Care Voip Technician Name Role Phone Ren Vaz MD Primary Care Provider [phone] Reason for Visit * Reason Comments Pituitary Abnormality Encounter Details Date Type Department Care Team (Latest Contact Info) Description 11/26/2019 11:00 EDT Telemedicine [facility] Endocrinology - [place] [address] [place] [address] Wilder Zaidi, DO [address] [facility] [address] [place] [address] Secondary adrenal insufficiency (HCC-CMS) (Primary [...] in this encounter Progress Notes * Wilder Zaiid, - 11/26/2019 1100 EDT TELEMEDICINE CONSENT The [...] currently living in his own home in [place], [place]. He has 2 caretakers are with [...] imtiaz. Unfortunately, Miguel Angel was hospitalized at [facility] from 09/02/2017 until 03/12/2018 due to a [...] follow- up endocrinology visit at [facility]. ?? With regards to his secondary adrenal [...] the Centers for Disease Control and The [place] Department of Health we are practicing social distancing to protect both our patients and our providers during the COVID-19 pandemic. ??LABORATORY DATA: 1. Pending at time of dictation STUDIES: 1. Repeat DEXA scan performed on 06/21/2019 at [facility] showed a Z score of -2.3 at [...] receive his endocrine care here at the [facility] despite living in [place]. However, if he is hospitalized he will likely be sent to [facility] and I be happy to coordinate with our endocrinology group as needed. 8. Given his testosterone deficiency, secondary to insufficiency, and history of fracture, I think a consultation to the metabolic bone clinic to discuss bone health and subsequent need for possible treatment is prudent. This will be done here at the [facility] endocrine clinic. documented in this encounter Plan of Treatment Upcoming Encounters Date Type Department Care Team (Late st Contact Info) Description 10/01/2024 13:40 EDT Office Visit [facility] Endocrinology - [address] [address] Wilder Zaidi DO [address] [place] [address] [address] [place] [phone] documented as of this encounter Visit Diagnoses Diagnosis Secondary adrenal insufficiency (HCC-CMS)- Primary Glucocorticoid deficiency 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HCC-CMS) Diabetes insipidus 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HCC-CMS) Panhypopituitarism Gonadotropin deficiency (HCC-CMS) Other anterior pituitary disorders Secondary hypothyroidism Other specified acquired hypothyroidism 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HCC-CMS) Pituitary dwarfism Fracture Closed fracture of unspecified bone documented in this encounter Care Teams Voip Technician Relationship Specialty Start Date End Date Ren Vaz MD [address] [place] [address] PCP - General 09/30/18 documented as of this encounter
--- OUTSIDE RECORDS SUMMARY | 2024-07-22 13:38 | XMS_ITS | Encounter Summary ---
Author Organization [facility] Address [address] [place] [address] Care Team Providers Care Cd Reactor Operator Head Name Role Phone Emilee Cody MD Primary Care Provider + Reason for Visit * Reason Comments Pituitary Abnormality Encounter Details Date Type Department Care Team (Latest Contact Info) Description 10/31/2016 13:20 EDT [facility] Visit [facility] End[facility]ology - [facility] [address] [place] [address] Wilder Zaidi, [address] [facility] [address] [place] [address] 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HCC-CMS) (Primary Dx); Primary [...] 2004. Miguel Angel was accompanied by the transition assistant of his long-term. He has been living with 2 other [...] No need to str ess dose. His occupational physician was able to articulate how and when [...] seems stable. ?? 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 omeprazole (PRILOSEC) 20 mg capsule Take 2 Capsules by mouth daily. added in this encounter Care Teams Cd Reactor Operator Head Relationship Specialty Start Date End Date Emilee Cody MD [address] [place] [address] PCP - General 03/15/16 09/29/18 documented as of this encounter
--- OUTSIDE RECORDS SUMMARY | 2024-07-22 13:38 | XMS_ITS | Encounter Summary ---
Author Organization [facility] Address [address] [place] [address] Care Team Providers Care Sap Portal Architect Name Role Phone Ren Vaz MD Primary Care Provider [phone] Reason for Visit * Reason Onset Date Comments Coordination Of Care 01/05/2020 Encounter Details Date Type Department Care Team (Late st Contact Info) Description 01/05/2020 Telephone [facility] Endocrinology - [facility] [address] [place] [address] Wilder Zaidi, [address] [facility] [address] [place] [address] Coordination Of Care Social History [...] faxed requested information back to [facility]. * Telephone Encounter - Carmel Muniz - 01/05/2020 0908 EDT Raphael with [facility] following up on the referral. They have received it but need a [facility] problem list as well. Please fax to [phone]. documented in this encounter Plan of Treatment Upcoming Encounters Date Type Department Care Team (Late st Contact Info) Description 10/01/2024 13:40 EDT Office Visit [facility] Endocrinology - [facility] [address] [place] [address] Wilder Zaidi, [address] [facility] [address] [place] [address] documented as of this encounter Visit Diagnoses Not on filedocumented in this encounter Care Teams Sap Portal Architect Relationship Specialty Start Date End Date Ren Vaz MD [facility] [place] [address] PCP - General 09/30/18 documented as of this encounter
--- OUTSIDE RECORDS SUMMARY | 2024-07-22 13:38 | XMS_ITS | Encounter Summary ---
Author Organization [facility] Address [address] [place] [address] Care Team Providers Care Physicist Acoustics Name Role Phone Ren Vaz MD Primary Care Provider [phone] Reason for Visit * Reason Onset Date Comments Labs Only 04/11/2020 Encounter Details Date Type Department Care Team (Late st Contact Info) Description 04/11/2020 Telephone [facility] Endocrinology - [facility] [address] [place] [address] Wilder Zaidi, DO [address] [facility] [address] [place] [address] Labs Only Social History Tobacco [...] have been electronically faxed 04/11/20 15:27 to [facility] at [phone]. Lab orders entered by Dr. Zaidi have been electronically faxed 04/11/20 15:31 to [facility] at [phone]. LESLEY COURTNEY RN 04/11/2020 15:31 * Telephone Encounter - Lesley Jeffrey RN - 04/11/2020 1229 EDT Returning call 04/11/20 12:29 Spoke to : Mavis Per caller, patient is to have sodium checked every 3 months. Caller does not have the order. Would need the order faxed to her or hospital. This typewriter ribbon winder will be faxing it to both fax numbers once we have the answer from the provider. Mavis's fax number : [phone] [facility] in [facility] : [phone] (fax) LESLEY COURTNEY RN 04/11/2020 12:33 * Telephone Encounter - Mirna Ervin - 04/11/2020 1215 EDT [facility] is calling to ask if orders have been put in for patient's blood work. Patient is there now. [facility] tried to reach nurse but was unable. documented in this encounter Plan of Treatment Upcoming Encounters Date Type Department Care Team (Late st Contact Info) Description 10/01/2024 13:40 EDT Office Visit [facility] Endocrinology - [facility] [address] [place], [place] [phone] Wilder Zaidi, [address] [facility] [address] [place] [address] documented as of this encounter Visit Diagnoses Diagnosis 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HCC-CMS)- Primary Panhypopituitarism documented in this encounter Care Teams Physicist Acoustics Relationship Specialty Start Date End Date Ren Vaz MD [address] [place] [address] PCP - General 09/30/18 documented as of this encounter
--- OUTSIDE RECORDS SUMMARY | 2024-07-22 13:38 | XMS_ITS | Encounter Summary ---
Author Organization [facility] Address [address] [place] [address] Care Team Providers Care Kit Assembler Name Role Phone Emilee Cody MD Primary Care Provider + Reason for Visit * Reason Onset Date Comments Prior Auth, Medication 08/05/2017 Encounter Details Date Type Department Care Team (Late st Contact Info) Description 08/05/2017 Telephone [facility] Endocrinology - [address] [phone] Emilee Cody MD [address] [place] [address] Prior Auth, Medication Social History Tobacco [...] - 08/08/2017 0831 EST Rcvd fax from [place] Medicaid with APPROVAL for Levothyroxine 150 mcg tablet. PA #: [id number] Dates: 08/07/2017 - 08/07/2018 Tracking #: [id number] Qty/Days Supply Restrictions: Called pharmacy to provide approval details. * Telephone Encounter - Lucía Bundy - 08/07/2017 1608 EST Completed [place] Medicaid [place] request form for levothyroxine blister pack and e-filed using [facility] to initiate this process. Response time is 3-5 days. To f/u, call [phone] * Telephone Encounter - Kristin Osman - 08/05/2017 1904 EST Rec sherrill from [facility] [address] [place] [address] Rx # [id number] Every Day /Blisster Pack LEVOTHYROXINE 150 MCG TAB QTY 30 [place] NEEDED documented in this encounter Plan of Treatment Upcoming Encounters Date Type Department Care Team (Late st Contact Info) Description 10/01/2024 13:40 EDT Office Visit [facility] Endocrinology - [address] [phone] Wilder Zaidi, DO [address] [facility] [address] [place] [address] documented as of this encounter Visit Diagnoses Not on filedocumented in this encounter Care Teams Kit Assembler Relationship Specialty Start Date End Date Emilee Cody MD [address] [place] [address] PCP - General 03/15/16 09/29/18 documented as of this encounter
--- OUTSIDE RECORDS SUMMARY | 2024-07-22 13:38 | XMS_ITS | Encounter Summary ---
Author Organization [facility] Address [address] [place] [address] Care Team Providers Care Teacher Physically Impaired Name Role Phone Ren Vaz MD Primary Care Provider [phone] Reason for Visit * Reason Onset Date Comments Paperwork request 03/09/2024 Encounter Details Date Type Department Care Team (Late st Contact Info) Description 03/09/2024 Telephone [facility] Endocrinology - [address] [address] Day Littlejohn MD PhD [address] [facility] [address] [place] [address] Paperwork request Social History Tobacco [...] encounter Miscellaneous Notes * Telephone Encounter - Guillaume Pennington - 03/09/2024 1025 EDT Cut Off Operator Scorer faxed most recent office note to [phone] documented in this encounter Plan of Treatment Upcoming Encounters Date Type Department Care Team (Late st Contact Info) Description 10/01/2024 13:40 EDT Office Visit [facility] Endocrinology - [address] [id number] Wilder Zaidi, [address] [facility] [address] [place] [address] documented as of this encounter Visit Diagnoses Not on filedocumented in this encounter Care Teams Teacher Physically Impaired Relationship Specialty Start Date End Date Ren Vaz MD [facility] [place] [address] PCP - General 09/30/18 documented as of this encounter
--- OUTSIDE RECORDS SUMMARY | 2024-07-22 13:38 | XMS_ITS | Encounter Summary ---
Author Organization [facility] Address [address] [place] [address] Care Team Providers Care Database Support Name Role Phone Emilee Cody MD Primary Care Provider + Ren Vaz MD Primary Care Provider [phone] Encounter Details Date Type Department Care Team (Late st Contact Info) Description 03/15/2018 Historical Results Only [facility] - [place] [address] [place] [address] Delfino Gallegos MD [address] [place] [address] [place] [address] Social History Tobacco Use Types Packs/Day [...] Info) Description 10/01/2024 13:40 EDT Office Visit [facility] Endocrinology - [facility] [address] [place] [address] Wilder Zaidi, [address] [facility] [address] [place] [address] documented as of this encounter Procedures Procedure Name Priority Date/Time Associated Diagnosis Comments SODIUM Routine 03/15/2018 16:50 EDT documented in this encounter Results * SODIUM (03/15/2018 16:50 EDT) Sodium 136 136 - 145 mEq/L 03/17/2018 10:41 EDT [facility] Comment: A waiver of liability has been signed and scanned into the patient's medical record. 03/15/2018 16:5 0 EDT 03/16/2018 10:05 EDT us Delfino Gallegos MD CHEMISTRY & BLOOD GAS OR DERABLES Final Result [facility] documented in this encounter Visit Diagnoses Not on filedocumented in this encounter Care Teams Database Support Relationship Specialty Start Date End Date Emilee Cody MD [address] [place] [address] PCP - General 03/15/16 09/29/18 Ren Vaz MD [facility] [place] [address] PCP - General 09/30/18 documented as of this encounter
--- OUTSIDE RECORDS SUMMARY | 2024-07-22 13:38 | XMS_ITS | Encounter Summary ---
Author Organization [facility] Address [address] [place] [address] Care Team Providers Care Airplane Gastank Liner Assembler Name Role Phone Ren Vaz MD Primary Care Provider [phone] Reason for Visit * Reason Onset Date Comments Referral Request 01/04/2020 referral for Bl ood draw in home Encounter Details Date Type Department Care Team (Late st Contact Info) Description 01/04/2020 Telephone [facility] Endocrinology - [facility] [address] [place] [address] Wilder Zaidi, DO [address] [facility] [address] [place] [address] Referral Request (referral for Blood [...] orders from 11/26/2019 electronically faxed to : [facility] Fax number : [phone] LESLEY COURTNEY RN 01/04/2020 11:42 * Telephone Encounter - Robin Baird - 01/04/2020 0959 EDT Please send referral to [facility] for patient to have a blood draw. His Guardian is requesting he doesn't go into the hospital. He needs blood drawn by end january. . documented in this encounter Plan of Treatment Upcoming Encounters Date Type Department Care Team (Late st Contact Info) Description 10/01/2024 13:40 EDT Office Visit [facility] Endocrinology - [address] [address] Wilder Zaidi, DO [address] [facility] [address] [place] [address] documented as of this encounter Visit Diagnoses Not on filedocumented in this encounter Care Teams Airplane Gastank Liner Assembler Relationship Specialty Start Date End Date Ren Vaz MD [facility] [place] [address] PCP - General 09/30/18 documented as of this encounter
--- OUTSIDE RECORDS SUMMARY | 2024-07-22 13:38 | XMS_ITS | Encounter Summary ---
Author Organization [facility] Address [address] [place] [address] Care Team Providers Care Director Of Coding Name Role Phone Emilee Cody MD Primary Care Provider + Reason for Visit * Reason Onset Date Comments Update 04/09/2016 standing medicat ion form Encounter Details Date Type Department Care Team (Late st Contact Info) Description 04/09/2016 Telephone [facility] Endocrinology - [facility] [address] [place] [address] Wilder Zaidi, [address] [facility] [address] [place] [address] Update (standing medication form) Social [...] Update (standing medication form) Summary/Symptoms: Lali from [facility] calling to discuss a prescription that [...] Info) Description 10/01/2024 13:40 EDT Office Visit [facility] Endocrinology - [facility] [address] [place] [address] Wilder Zaidi, [address] [facility] [address] [place] [address] documented as of this encounter Visit Diagnoses Not on filedocumented in this encounter Care Teams Director Of Coding Relationship Specialty Start Date End Date Emilee Cody MD [address] [place] [address] PCP - General 03/15/16 09/29/18 documented as of this encounter
--- OUTSIDE RECORDS SUMMARY | 2024-07-22 13:38 | XMS_ITS | Encounter Summary ---
Author Organization [facility] Address [address] [place] [address] Care Team Providers Care Associate Product Integrity Engineer Name Role Phone Ren Vaz MD Primary Care Provider [phone] Reason for Visit * Reason Onset Date Comments Home Health 01/12/2020 discuss other la b draws and flexeril Encounter Details Date Type Department Care Team (Late st Contact Info) Description 01/12/2020 Telephone [facility] Endocrinology - [facility] [address] [place] [address] Wilder Zaidi, [address] [facility] [address] [place] [address] Home Health (discuss other lab [...] Robin Baird - 01/12/2020 1449 EDT [facility] RN She megan labs today that were ordered. Ladonna doesn't know what else Miguel Angel would need [facility]. Also maybe In need for flexeril and should patient go through PCP for that . Please call to discuss. documented in this encounter Plan of Treatment Upcoming Encounters Date Type Department Care Team (Late st Contact Info) Description 10/01/2024 13:40 EDT Office Visit [facility] Endocrinology - [facility] [address] [place] [address] Wilder Zaidi, DO [address] [facility] [address] [place] [address] documented as of this encounter Visit Diagnoses Not on filedocumented in this encounter Care Teams Associate Product Integrity Engineer Relationship Specialty Start Date End Date [place] [address] PCP - General 09/30/18 documented as of this encounter
--- OUTSIDE RECORDS SUMMARY | 2024-07-22 13:38 | XMS_ITS | Encounter Summary ---
Author Organization [facility] Address [address] [place] [address] Care Team Providers Care Immigration Consultant Name Role Phone Emilee Cody MD Primary Care Provider + Reason for Visit * Reason Onset Date Comments Medication Questions 07/16/2016 Encounter Details Date Type Department Care Team (Late st Contact Info) Description 07/16/2016 Telephone [facility] Endocrinology - [facility] [address] [place] [address] Wilder Zaidi, [address] [facility] [address] [place] [address] Medication Questions Social History Tobacco [...] Info) Description 10/01/2024 13:40 EDT Office Visit [facility] Endocrinology - [facility] [address] [place] [address] Wilder Zaidi, [address] [facility] [address] [place] [address] documented as of this encounter Visit Diagnoses Not on filedocumented in this encounter Care Teams Immigration Consultant Relationship Specialty Start Date End Date Emilee Cody MD [address] [place] [address] PCP - General 03/15/16 09/29/18 documented as of this encounter
--- OUTSIDE RECORDS SUMMARY | 2024-07-22 13:38 | XMS_ITS | Encounter Summary ---
Author Organization [facility] Address [address] [place] [address] Care Team Providers Care Breaker Engineer Name Role Phone Emilee Cody MD Primary Care Provider + Ren Vaz MD Primary Care Provider Reason for Visit * Reason Onset Date Comments Medications Refill 08/07/2017 Encounter Details Date Type Department Care Team (Late st Contact Info) Description 08/07/2017 Refill [facility] Endocrinology [facility] [address] [place] [address] Carlito Paul MD [address] [place] [address] [address] [place] [address] Medications Refill Social History Tobacco [...] Info) Description 10/01/2024 13:40 EDT Office Visit [facility] Endocrinology [facility] [address] [place] [address] Wilder Zaidi DO [address] [facility] [address] [place] [address] documented as of this encounter Visit Diagnoses Not on filedocumented in this encounter Care Teams Breaker Engineer Relationship Specialty Start Date End Date Emilee Cody MD [address] [place] [address] PCP - General 03/15/16 09/29/18 Ren Vaz MD [address] [place] [address] [place] [address] PCP - General 09/30/18 documented as of this encounter
--- OUTSIDE RECORDS SUMMARY | 2024-07-22 13:38 | XMS_ITS | Encounter Summary ---
Author Organization [facility] Address [address] [place] [address] Care Team Providers Care Film Coater Name Role Phone Emilee Cody MD Primary Care Provider + Reason for Visit * Reason Onset Date Comments Prior Auth, Medication 07/12/2016 Levothyro xine 150 mcg needs 30 day overide thru Insurance Encounter Details Date Type Department Care Team (Late st Contact Info) Description 07/12/2016 Telephone [facility] Endocrinology - [facility] [address] [place] [address] Wilder Zaidi DO [address] [facility] [address] [place] [address] Prior Auth, Medication (Levothyroxine 150 [...] - 07/15/2016 1403 EST Rcv[place] fax from [place] with APPROVAL for: Drug NDC # and Name: [id number] - LEvothyroxin tab 150 mcg Tracking #: [id number] PA #: [id number] Dates: 07/15/2016 - 07/15/2017 Qty / Days Supply Restrictions: 30.0 / 30 [place] Medicaid ID #: [id number] Called pharmacy - they already rcvd notice and script has been picked up. * Telephone Encounter - Lucía Bundy - 07/15/2016 1155 EST Completed [place] Medicaid PA Request form and e-filed using [facility] to initiate this process. * Telephone Encounter [...] Info) Description 10/01/2024 13:40 EDT Office Visit [facility] Endocrinology - [address] [id number] Wilder Zaidi, [address] [facility] [address] [place] [address] documented as of this encounter Visit Diagnoses Not on filedocumented in this encounter Care Teams Film Coater Relationship Specialty Start Date End Date Emilee Cody MD [address] [place] [address] PCP - General 03/15/16 09/29/18 documented as of this encounter
--- OUTSIDE RECORDS SUMMARY | 2024-07-22 13:38 | XMS_ITS | Encounter Summary ---
Author Organization [facility] Address [address] [place] [address] Care Team Providers Care Liquefier Name Role Phone Ren Vaz MD Primary Care Provider [phone] Encounter Details Date Type Department Care Team (Late st Contact Info) Description 08/09/2019 Lab Requisition [facility] Pathology & Laboratory Medicine - [facility] [address] [place] [address] Mary Jo Eldridge, DO [address] [place], [place] [id number] Vomiting, unspecified; Adult hypertrophic pyloric stenosis; Unspecified [...] EDT Office Visit [facility] Endocrinology - [facility] [address] [place] [address] Wilder Zaidi, DO [address] [place] [address] documented as of this encounter Procedures Procedure Name Priority Date/Time Associated Diagnosis Comments SURGICAL PATHOLOGY Today 08/08/2019 14 :49 EST Vomiting, unspecified Adult hypertrophic pyloric stenosis Unspecified convulsions (HCC-CMS) Hypopituitarism (HCC-CMS) Cramp and spasm Gastro-esophageal reflux disease without esophagitis Diabetes insipidus (HCC-CMS) Fever, unspecified Other specified health status Transient alteration of awareness Unspecified intracranial injury with loss of consciousness of unspecified duration, initial encounter ([facility]-CMS) Other gastritis without bleeding documented in this [...] Organisms compatible with sarcina noted. 08/18/2019 12:07 [facility] at 1207 Diagnosis Comment Iron stain is negative for iron deposition (A2). 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 Clinical correlation is recommended. 08/18/2019 12:07 [facility] Clinical History Gastric outlet obstruction 08/18/2019 12:07 [facility] Attestation By the signature below, the attending physician certifies that they have personally conducted a gross and/or microscopic examination of the described specimens and rendered or confirmed the above diagnosis. 08/18/2019 12:07 [facility] at 1207 Gross Description A. [...] is submitted in toto in B1. Candice Anum 08/09/2019 16:08 08/18/2019 12:07 [facility] Scanned Images 08/18/2019 12:07 [facility] Tissue ENTIRE STOMACH / Unknown 08/08/2019 14:49 EST 08/09/2019 15:52 EST Tissue specimen (specimen) STOMACH STRUCTURE / Unknown 08/08/2019 14:49 EST 08/09/2019 15:52 EST us Mary Jo Eldridge DO PATHOLOGY ORDERABLES Final Re sult [facility] [address] [place] [address] documented in this encounter Visit Diagnoses Diagnosis Vomiting, unspecified Adult hypertrophic pyloric stenosis Acquired hypertrophic pyloric stenosis Unspecified convulsions ([facility]) Hypopituitarism ([facility]) Panhypopituitarism Cramp and spasm Gastro-esophageal reflux disease without esophagitis Esophageal reflux Diabetes insipidus ([facility]) Diabetes insipidus Fever, unspecified Other specified health status Transient alteration of awareness Unspecified intracranial injury with loss of consciousness of unspecified duration, initial encounter ([facility]) Other gastritis without bleeding documented in this encounter Care Teams Liquefier Relationship Specialty Start Date End Date Ren Vaz MD [address] [place] [address] PCP - General 09/30/18 documented as of this encounter
--- OUTSIDE RECORDS SUMMARY | 2024-07-22 13:38 | XMS_ITS | Encounter Summary ---
Author Organization [facility] Address [address] [place] [address] Care Team Providers Care Anesthesiology Technologist Name Role Phone Emilee Cody MD Primary Care Provider + Reason for Visit * Reason Onset Date Comments Results 10/07/2016 done 10/04 Follow-up 10/09/2016 sodium results Encounter Details Date Type Department Care Team (Late st Contact Info) Description 10/07/2016 Telephone [facility] Endocrinology - [facility] [address] [place] [address] Wilder Zaidi, [address] [facility] [address] [place] [address] Results (done 10/04); Follow-up (sodium [...] 1335 EDT [facility]. His sodium on 10/04/16 was normal at 138 * Telephone Encounter - Maxine Roy - 10/09/2016 1110 EDT [facility]. Lali made aware this was pending Dr. Zaidi's review. * Telephone Encounter - Jennifer Au, HEATHER - 10/07/2016 1353 EDT Spoke with Lali, do not have labs - will kimble them down at [facility]./Jose * Telephone Encounter - Arlene Monroy - 10/07/2016 1319 EDT Per Lali from [facility] calling for sodium lab results done on 10/04/16. Lali is requestinga call back with results. documented in this encounter Plan of Treatment Upcoming Encounters Date Type Department Care Team (Late st Contact Info) Description 10/01/2024 13:40 EDT Office Visit [facility] Endocrinology - [facility] [address] [place] [address] Wilder Zaidi DO [address] [facility] [address] [place] [address] documented as of this encounter Visit Diagnoses Not on filedocumented in this encounter Care Teams Anesthesiology Technologist Relationship Specialty Start Date End Date Emilee Cody MD [facility] [place] [address] PCP - General 03/15/16 09/29/18 documented as of this encounter
--- OUTSIDE RECORDS SUMMARY | 2024-07-22 13:38 | XMS_ITS | Encounter Summary ---
Author Organization [facility] Address [address] [place] [address] Care Team Providers Care Geotechnical Laboratory Technician Name Role Phone Ren Vaz MD Primary Care Provider [phone] Encounter Details Date Type Department Care Team (Late st Contact Info) Description 07/30/2019 Lab Requisition [facility] Pathology & Laboratory Medicine - [address] [address] Rachana Cuello MD Social History Tobacco Use [...] Visit [facility] Endocrinology - [place] [address] [place] [address] Wilder Zaidi, [address] [place] [address] documented as of this encounter Procedures Procedure Name Priority Date/Time Associated Diagnosis Comments CALCIUM, IONIZED Routine 07/30/2019 11:5 9 EST documented in this encounter Results * CALCIUM, IONIZED (07/30/2019 11:59 EST) Calcium, Ionized 1.12 1.12 - 1.32 mmol/L 07/30/2019 16:51 EST [facility] Comment:Testing performed on heparinized plasma. Results may be biased 5% lower than that of whole blood. Blood VENOUS BLOOD / Unknown 07/30/2019 11:59 EST 07/30/2019 16:41 EST us Rachana Eloise Robb MD CHEMISTRY & BLOOD GAS ORDERABLES Final Result [facility] [address] [place] [address] documented in this encounter Visit Diagnoses Not on filedocumented in this encounter Care Teams Geotechnical Laboratory Technician Relationship Specialty Start Date End Date Ren Vaz [place] [address] PCP - General 09/30/18 documented as of this encounter
--- OUTSIDE RECORDS SUMMARY | 2024-07-22 13:38 | XMS_ITS | Encounter Summary ---
Author Organization [facility] Address [address] [place] [address] Care Team Providers Care Staff Development Manager Name Role Phone Emilee Cody MD Primary Care Provider + Reason for Visit * Reason Onset Date Comments Discuss Test Results 06/13/2016 Encounter Details Date Type Department Care Team (Late st Contact Info) Description 06/13/[address] [facility] Endocrinology - [facility] [address] [place] [address] Wilder Zaidi, [address] [facility] [address] [place] [address] Discuss Test Results Social History [...] Telephone Encounter - Tracy Cowan - 06/13/2016 7878 EST Lali from [facility] calling for sodium results drawn a few weeks ago @ [facility] documented in this encounter Plan of Treatment Upcoming Encounters Date Type Department Care Team (Late st Contact Info) Description 10/01/2024 13:40 EDT Office Visit [facility] Endocrinology - [facility] [address] [place], [place] [id number] Wilder Zaidi, [address] [facility] [address] [place] [address] documented as of this encounter Visit Diagnoses Not on filedocumented in this encounter Care Teams Staff Development Manager Relationship Specialty Start Date End Date Emilee Cody MD [address] [place] [address] PCP - General 03/15/16 09/29/18 documented as of this encounter
--- OUTSIDE RECORDS SUMMARY | 2024-07-22 13:38 | XMS_ITS | Encounter Summary ---
Author Organization [facility] Address [address] [place] [address] Care Team Providers Care Cutter In Name Role Phone Emilee Cody MD Primary Care Provider + Reason for Visit * Reason Onset Date Comments Prior Auth, Medication 06/14/2016 Levothyro xine Encounter Details Date Type Department Care Team (Late st Contact Info) Description 06/14/2016 Telephone [facility] Endocrinology - [facility] [address] [place] [address] Wilder Zaidi, [address] [facility] [address] [place] [address] Prior Auth, Medication (Levothyroxine) Social [...] Mari - 06/14/2016 0839 EST Lali from [facility] calling states that pt will be out of medication tomorrow and that they need an urgent PA for Levothyroxine. Please call. documented in this encounter Plan of Treatment Upcoming Encounters Date Type Department Care Team (Late st Contact Info) Description 10/01/2024 13:40 EDT Office Visit [facility] Endocrinology - [facility] [address] [place], [place] [phone] Wilder Zaidi, [address] [facility] [address] [place] [address] documented as of this encounter Visit Diagnoses Not on filedocumented in this encounter Discontinued Medications Medication Sig Discontinue Reason Start Date End Da te levothyroxine (SYNTHROID) 150 mcg tablet TAKE ONE TABLET BY MOUTH EVERY DAY Reorder 05/01/2016 06/14/2016 documented as of this encounter Care Teams Cutter In Relationship Specialty Start Date End Date Emilee Cody MD [address] [place] [address] PCP - General 03/15/16 09/29/18 documented as of this encounter
--- OUTSIDE RECORDS SUMMARY | 2024-07-22 13:38 | XMS_ITS | Encounter Summary ---
Author Organization [facility] Address [address] [place] [address] Care Team Providers Care Second Facing Baster Name Role Phone Ren Vaz MD Primary Care Provider [phone] Reason for Visit * Reason Onset Date Comments Medication Questions 11/09/2020 Encounter Details Date Type Department Care Team (Late st Contact Info) Description 11/09/2020 Telephone [facility] Endocrinology - [facility] [address] [place] [address] Wilder Zaidi, [address] [facility] [address] [place] [address] Medication Questions Social History Tobacco [...] 11/09/2020 1432 EDT Call to: Pr[employer] manager stylist Relayed Dr. Zaidi's message: Wilder Zaidi DO [...] - 11/09/2020 1109 EDT Caller is the high risk case manager for patient, advising that the [...] Info) Description 10/01/2024 13:40 EDT Office Visit [facility] Endocrinology - [facility] [address] [place] [address] Wilder Zaidi, [address] [facility] [address] [place] [address] documented as of this encounter Visit Diagnoses Not on filedocumented in this encounter Care Teams Second Facing Baster Relationship Specialty Start Date End Date Ren Vaz MD [place] [address] PCP - General 09/30/18 documented as of this encounter
--- OUTSIDE RECORDS SUMMARY | 2024-07-22 13:38 | XMS_ITS | Encounter Summary ---
Author Organization [facility] Address [address] [place] [address] Care Team Providers Care Research Affiliate Name Role Phone Ren Vaz MD Primary Care Provider [phone] Reason for Visit * Reason Onset Date Comments Follow-up 10/20/2023 Paperwork request 10/20/2023 Encounter Details Date Type Department Care Team (Late st Contact Info) Description 10/20/2023 Telephone [facility] Endocrinology - [address] [address] Day Littlejohn MD PhD [address] [place] [address] [place] [address] Follow-up; Paperwork request Social History Tobacco [...] EDT Printed and faxed MICKEY notes to [facility] Routing to Dr. Littlejohn re: f/u about DXA and head CT scan results. MAVIS FRANCO RN 10/21/2023 13:52 * Telephone Encounter - Laura Freeman - 10/20/2023 1121 EDT Endocrinology Incoming Call Reason for call: follow up and records Labs Request/Results If known, which test are you inquiring about? Head scan and bone density Where was your test performed (which lab)? [facility] What date was the test performed? september Next Appointment: 03/04/2024 Last Office Visit: 09/04/2023 Day Littlejohn MD PhD Last Telehealth Encounter: Visit date not found Send as Routine Priority to [place] [facility]ocrine Nurse Rito Dougherty calling, asking for follow up after having the head CT and DEXA done. She is also requesting a signed copy of the office visit dated 09/04/23 for the pts records at the facility documented in this encounter Plan of Treatment Upcoming Encounters Date Type Department Care Team (Late st Contact Info) Description 10/01/2024 13:40 EDT Office Visit [facility] Endocrinology - [place] [address] [facility] [address] [place], [place] [id number] Wilder Zaidi, DO [address] [facility] [address] [place] [address] documented as of this encounter Visit Diagnoses Not on filedocumented in this encounter Care Teams Research Affiliate Relationship Specialty Start Date End Date Ren Vaz MD [facility] [place] [address] PCP - General 09/30/18 documented as of this encounter
--- OUTSIDE RECORDS SUMMARY | 2024-07-22 13:39 | XMS_ITS | Encounter Summary ---
Author Organization [facility] Address [address] [place] [address] Care Team Providers Care Chocolate Maker Name Role Phone Yossi Torres MD Primary Care Provider [phone] Encounter Details Date Type Department Care Team (Latest Contact Info) Description 07/29/2013 Orders Only [facility] Endocrinology - [address] [address] Tejal Carreno, RN CDE 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HCC-CMS) (Primary Dx) Social [...] 10/01/2024 13:40 EDT Office Visit [facility] Endocrinology [facility] [address] [place] [address] Wilder Zaidi, [address] [facility] [address] [place] [address] documented as of this encounter Visit Diagnoses Diagnosis 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HCC-CMS)- Primary Panhypopituitarism documented in this encounter Care Teams Chocolate Maker Relationship Specialty Start Date End Date Yossi Torres MD [address] [place] [address] [address] [place] [phone] PCP - General 04/17/11 03/14/16 documented as of this encounter
--- OUTSIDE RECORDS SUMMARY | 2024-07-22 13:39 | XMS_ITS | Encounter Summary ---
Author Organization [facility] Address [address] [place] [address] Care Team Providers Care Environmental Laboratory Technician Name Role Phone Yossi Torres MD Primary Care Provider [phone] Emilee Cody MD Primary Care Provider + Reason for Visit * Reason Onset Date Comments Results 08/05/2014 Encounter Details Date Type Department Care Team (Late st Contact Info) Description 08/05/2014 Telephone [facility] Endocrinology - [facility] [address] [place] [address] Wilder Zaidi DO [address] [facility] [address] [place] [address] Results Social History Tobacco Use [...] Encounter - Wilder Zaidi DO - 08/05/2014 9824 EST Spoke with sister. They held his [...] patient's most recent laboratory results from the [facility] dated 08/04/14 . Advise patient that miguel [...] 13:40 EDT Office Visit [facility] Endocrinology - [facility] [address] [place] [address] Wilder Zaidi DO [address] [facility] [address] [place] [address] documented as of this encounter Visit Diagnoses Not on filedocumented in this encounter Care Teams Environmental Laboratory Technician Relationship Specialty Start Date End Date Yossi Torres MD [address] [place] [address] [address] [place] [phone] PCP - General 04/17/11 03/14/16 Emilee Cody MD [address] [place] [address] PCP - General 03/15/16 09/29/18 documented as of this encounter
--- OUTSIDE RECORDS SUMMARY | 2024-07-22 13:39 | XMS_ITS | Encounter Summary ---
Author Organization [facility] Address [address] [place] [address] Care Team Providers Care Ms Sql Developer Name Role Phone Yossi Torres MD Primary Care Provider [phone] Reason for Visit * Reason Onset Date Comments Medications Refill 08/29/2014 Encounter Details Date Type Department Care Team (Late st Contact Info) Description 08/29/2014 Refill [facility] Endocrinology - [facility] [address] [place] [address] Wilder Zaidi DO [address] [facility] [address] [place] [address] Medications Refill Social History Tobacco [...] gram (1.62 %) transdermal gel pumpIndications:Jose nhypopituitarism ([facility]) Apply 1 pump actuation topically daily Daily Max: 20.25 mg 75 g 3 08/29/2014 5 documented in this encounter Miscellaneous Notes * Telephone Encounter - Chavez, [place] - 09/02/2014 0950 EST Androgel refill phoned in to pharmacy [facility] in [place]. Androgel 1.62%, apply 1 pump daily #75gm with 3 refills. * Telephone Encounter - Shruti Michael, RN - 08/29/2014 1500 EST Refill request for androgel. Last visit 08/04/14, next visit 03/27/15. Last fill 02/03/14. Refill doneper protocol. documented in this encounter Plan of Treatment Upcoming Encounters Date Type Department Care Team (Late st Contact Info) Description 10/01/2024 13:40 EDT Office Visit [facility] Endocrinology - [facility] [address] [place], [place] [id number] Wilder Zaidi, [address] [facility] [address] [place] [address] documented as of this encounter Visit Diagnoses Diagnosis 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[facility])- Primary Panhypopituitarism documented in this encounter Discontinued Medications Medication Sig Discontinue Reason Start Date End Da te testosterone (ANDROGEL) 20.25 mg/1.25 gram (1.62 %) transdermal gel pump Apply 1 pump actuation topically daily. Reorder 02/03/2014 08/29/2014 documented as of this encounter Care Teams Ms Sql Developer Relationship Specialty Start Date End Date Yossi Torres MD [address] [place] [address] [address] [place] [phone] PCP - General 04/17/11 03/14/16 documented as of this encounter
--- OUTSIDE RECORDS SUMMARY | 2024-07-22 13:39 | XMS_ITS | Encounter Summary ---
Author Organization [facility] Address [address] [place] [address] Care Team Providers Care Gas Engine Performance Engineer Name Role Phone Yossi Torres MD Primary Care Provider +1- [phone] Reason for Visit * Reason Comments Other Encounter Details Date Type Department Care Team (Late st Contact Info) Description 08/25/2014 Refill [facility] Endocrinology - [facility] [address] [place], [place] [id number] Day Littlejohn MD PhD 62 [facility] [address] [place] [address] Other Social History Tobacco Use [...] Info) Description 10/01/2024 13:40 EDT Office Visit [facility] Endocrinology [facility] [address] [place] [address] Wilder Zaidi, 62 [facility] [address] [place] [address] documented as of this encounter Visit Diagnoses Not on filedocumented in this encounter Discontinued Medications Medication Sig Discontinue Reason Start Date End Da te levothyroxine (SYNTHROID) 150 mcg tablet Take 1 Tab by mouth daily. Reorder 09/01/2013 08/25/2014 documented as of this encounter Care Teams Gas Engine Performance Engineer Relationship Specialty Start Date End Date Yossi Torres MD [address] [place] [address] [address] [place] [phone] PCP - General 04/17/11 03/14/16 documented as of this encounter
--- OUTSIDE RECORDS SUMMARY | 2024-07-22 13:39 | XMS_ITS | Encounter Summary ---
Author Organization [facility] Address [address] [place] [address] Care Team Providers Care Braiding Machine Tender Name Role Phone Yossi Torres MD Primary Care Provider +1 [phone] Reason for Visit * Reason Onset Date Comments Update 09/13/2013 Encounter Details Date Type Department Care Team (Late st Contact Info) Description 09/13/2013 Telephone [facility] Endocrinology - [facility] [address] [place] [phone] Wilder Zaidi, 62 [facility] [address] [place] [address] Update Social History Tobacco Use [...] Description 10/01/2024 13:40 EDT Office Visit [facility] Endocrinology - [place] [address] [place] [address] Wilder Zaidi, DO [address] [facility] [address] [place] [address] documented as of this encounter Visit Diagnoses Not on filedocumented in this encounter Care Teams Braiding Machine Tender Relationship Specialty Start Date End Date Yossi Torres MD [address] [place] [address] [facility] 2 [place] [phone] PCP - General 04/17/11 03/14/16 documented as of this encounter
--- OUTSIDE RECORDS SUMMARY | 2024-07-22 13:39 | XMS_ITS | Encounter Summary ---
Author Organization [facility] Address [address] [place] [address] Care Team Providers Care Can Worker Name Role Phone Yossi Torres MD Primary Care Provider +1 [phone] Reason for Visit * Reason Onset Date Comments Results 04/04/2015 Encounter Details Date Type Department Care Team (Late st Contact Info) Description 04/04/2015 Telephone [facility] Endocrinology - [facility] [address] [place] [address] Belgica Chavez CDE 62 [facility] [address] [place] [address] Results Social History Tobacco Use [...] 1710 EDT Discussed with Lali nurse at [facility]. Advised of plan. She verbalized understanding. * [...] EDT Office Visit [facility] Endocrinology - [address] [phone] Wilder Zaidi DO 62 [facility] [address] [place] [address] documented as of this encounter Visit Diagnoses Not on filedocumented in this encounter Care Teams Can Worker Relationship Specialty Start Date End Date Yossi Torres MD [address] [place] [address] [address] [place] [phone] PCP - General 04/17/11 03/14/16 documented as of this encounter
--- OUTSIDE RECORDS SUMMARY | 2024-07-22 13:39 | XMS_ITS | Encounter Summary ---
Author Organization [facility] Address [address] [place] [address] Care Team Providers Care Telephone Order Dispatcher Name Role Phone Yossi Torres MD Primary Care Provider +1- [phone] Reason for Visit * Reason Onset Date Comments Follow-up 03/31/2015 Encounter Details Date Type Department Care Team (Late st Contact Info) Description 03/31/2015 Telephone [facility] Endocrinology - [facility] [address] [place] [address] Wilder Zaidi, 62 [facility] [address] [place] [address] Follow-up Social History Tobacco Use [...] EDT Phone call to Lali (nurse at [facility]) Left message on her personal voice mail Per Dr. Zaidi please repeat Sodium level on Friday04/03/15. Sodium level was 146 ([id number]) * Telephone Encounter - Addie Burgess - 03/31/2015 1010 EDT Reason for Call: Follow-up Summary/Symptoms: Lali (RN) requesting a call back when nurses receive pt's sodium levels from [facility]. Addiemagali Burgess 03/31/2015 10:10 documented in this encounter Plan of Treatment Upcoming Encounters Date Type Department Care Team (Late st Contact Info) Description 10/01/2024 13:40 EDT Office Visit [facility] Endocrinology - [facility] [address] [place] [address] Wilder Zaidi, 62 [facility] [address] [place] [address] documented as of this encounter Visit Diagnoses Not on filedocumented in this encounter Care Teams Telephone Order Dispatcher Relationship Specialty Start Date End Date Yossi Torres MD [address] [place] [address] [address] [place] [phone] PCP - General 04/17/11 03/14/16 documented as of this encounter
--- OUTSIDE RECORDS SUMMARY | 2024-07-22 13:39 | XMS_ITS | Encounter Summary ---
Author Organization [facility] Address [address] [place] [address] Care Team Providers Care Remote Sensing Surveyor Name Role Phone Yossi Torres MD Primary Care Provider +1- [phone] Reason for Visit * Reason Onset Date Comments Results 05/02/2015 Encounter Details Date Type Department Care Team (Late st Contact Info) Description 05/02/2015 Telephone [facility] Endocrinology - [facility] [address] [place] [address] Wilder Zaidi DO 62 [facility] [address] [place] [address] Results Social History Tobacco Use [...] Left detailed message for jason strickland at [facility]. She will call back if any questions. * Telephone Encounter - Wilder Zaidi DO - 05/02/2015 7523 EDT Please contact the facility where Miguel [...] Info) Description 10/01/2024 13:40 EDT Office Visit [facility] Endocrinology - [facility] [address] [place] [address] Wilder Zaidi DO 62 [facility] [address] [place] [address] documented as of this encounter Visit Diagnoses Not on filedocumented in this encounter Care Teams Remote Sensing Surveyor Relationship Specialty Start Date End Date Yossi Torres MD [address] [place] [address] [address] [place] [phone] PCP - General 04/17/11 03/14/16 documented as of this encounter
--- OUTSIDE RECORDS SUMMARY | 2024-07-22 13:39 | XMS_ITS | Encounter Summary ---
Author Organization [facility] Address [address] [place] [address] Care Team Providers Care Tube Worker Name Role Phone Yossi Torres MD Primary Care Provider +1 [phone] Reason for Visit * Reason Onset Date Comments Medications Refill 05/03/2015 Encounter Details Date Type Department Care Team (Late st Contact Info) Description 05/03/2015 Refill [facility] Endocrinology - [facility] [address] [place] [address] Wilder Zaidi, 62 [facility] [address] [place] [address] Medications Refill Social History Tobacco [...] 0956 EDT Medication(s) Requested: Levothyroxine 150mcg Pharmacy: [facility] Last Refill Date: 08/25/14 Last Visit Date: 08/04/14 Next Visit Date: 10/23/2015 Is patient out of medication? Dinorah Burgess 05/03/2015 9:56 documented in this encounter Plan of Treatment Upcoming Encounters Date Type Department Care Team (Late st Contact Info) Description 10/01/2024 13:40 EDT Office Visit [facility] Endocrinology - [facility] [address] [place] [address] Wilder Zaidi, 62 [facility] [address] [place] [address] documented as of this encounter Visit Diagnoses Not on filedocumented in this encounter Discontinued Medications Medication Sig Discontinue Reason Start Date End Da te levothyroxine (SYNTHROID) 150 mcg tablet TAKE ONE TABLET BY MOUTH EVERY DAY Reorder 08/25/2014 05/03/2015 documented as of this encounter Care Teams Tube Worker Relationship Specialty Start Date End Date Yossi Torres MD [address] [place] [address] [address] [place] [phone] PCP - General 04/17/11 03/14/16 documented as of this encounter
--- OUTSIDE RECORDS SUMMARY | 2024-07-22 13:39 | XMS_ITS | Encounter Summary ---
Author Organization [facility] Address [address] [place] [address] Care Team Providers Care Firmware Test Engineer Name Role Phone Yossi Torres MD Primary Care Provider [phone]- [phone] Reason for Visit * Reason Onset Date Comments Results 08/04/2014 Encounter Details Date Type Department Care Team (Late Contact Info) Description 08/04/2014 Telephone [facility] Endocrinology - [facility] [address] [place] [address] Wilder Zaidi, 62 [facility] [address] [place] [address] Results Social History Tobacco Use [...] Office Visit [facility] Endocrinology - [place] [address] [place], [place] [phone] Wilder Zaidi, DO [address] [facility] [address] [place] [address] documented as of this encounter Visit Diagnoses Not on filedocumented in this encounter Care Teams Firmware Test Engineer Relationship Specialty Start Date End Date Yossi Torres MD [address] [place] [address] [address] [place] [phone] PCP - General 04/17/11 03/14/16 documented as of this encounter
--- OUTSIDE RECORDS SUMMARY | 2024-07-22 13:39 | XMS_ITS | Encounter Summary ---
Author Organization [facility] Address [address] [place] [address] Care Team Providers Care Business Analytics Faculty Member Name Role Phone Yossi Torres MD Primary Care Provider +1- [phone] Reason for Visit * Reason Onset Date Comments Letter for School/Work 10/17/2014 Encounter Details Date Type Department Care Team (Late st Contact Info) Description 10/17/2014 Telephone [facility] Endocrinology - [facility] [address] [place] [address] Belgica Chavez CDE 62 [facility] [address] [place] [address] Letter for School/Work Social History [...] - 10/19/2014 1122 EDT Faxed letter to [employer]. * Telephone Encounter - Wilder Zaidi DO - 10/17/2014 1347 EDT Please type up letter for me [...] Info) Description 10/01/2024 13:40 EDT Office Visit [facility] Endocrinology - [facility] [address] [place], [place] [phone] Wilder Zaidi DO 62 [facility] [address] [place] [address] documented as of this encounter Visit Diagnoses Not on filedocumented in this encounter Care Teams Business Analytics Faculty Member Relationship Specialty Start Date End Date Yossi Torres MD [address] [place] [address] [address] [place] [phone] PCP - General 04/17/11 03/14/16 documented as of this encounter
--- OUTSIDE RECORDS SUMMARY | 2024-07-22 13:39 | XMS_ITS | Encounter Summary ---
Author Organization [facility] Address [address] [place] [address] Care Team Providers Care Bindery Chief Name Role Phone Yossi Torres MD Primary Care Provider +1- [phone] Reason for Visit * Reason Onset Date Comments Appointment Related 02/06/2016 was schedule d for 03/18/16 Encounter Details Date Type Department Care Team (Late st Contact Info) Description 02/06/2016 Telephone [facility] Endocrinology - [facility] [address] [place] [address] Wilder Zaidi, 62 [facility] [address] [place] [address] Appointment Related (was scheduled for [...] EDT Reason for Call: Appointment Related Summary/Symptoms: [facility] is wondering when patient's upcoming appointment was. The 03/18/16 was canceled, and not only would they like a call when it is scheduled, but his sister Bettinaas well. Josefina Rivera 02/06/2016 15:04 documented in this encounter Plan of Treatment Upcoming Encounters Date Type Department Care Team (Late st Contact Info) Description 10/01/2024 13:40 EDT Office Visit [facility] Endocrinology - [facility] [address] [place] [address] Wilder Zaidi, 62 [facility] [address] [place] [phone] documented as of this encounter Visit Diagnoses Not on filedocumented in this encounter Care Teams Bindery Chief Relationship Specialty Start Date End Date Yossi Torres MD [address] [place] [address] [address] [place] [phone] PCP - General 04/17/11 03/14/16 documented as of this encounter
--- OUTSIDE RECORDS SUMMARY | 2024-07-22 13:39 | XMS_ITS | Encounter Summary ---
Author Organization [facility] Address [address] [place] [address] Care Team Providers Care Sales Order Administrator Name Role Phone Yossi Torres MD Primary Care Provider +1- [phone] Reason for Visit * Reason Onset Date Comments Other 09/06/2013 high sodium Encounter Details Date Type Department Care Team (Late st Contact Info) Description 09/06/[address] [facility] - [facility] [address] [place] [address] Wilder Zaidi, 62 [facility] [address] [place] [address] Other (high sodium ) Social [...] Telephone Encounter - Ramon Lucero - 09/06/2013 2954 EST I spoke with Miguel Angel's sister [...] 13:40 EDT Office Visit [facility] - [facility] [address] [place] [address] Wilder Zaidi, 62 [facility] [address] [place] [address] documented as of this encounter Visit Diagnoses Not on filedocumented in this encounter Care Teams Sales Order Administrator Relationship Specialty Start Date End Date Yossi Torres MD [address] [place] [address] [address] [place] [phone] PCP - General 04/17/11 03/14/16 documented as of this encounter
--- OUTSIDE RECORDS SUMMARY | 2024-07-22 13:39 | XMS_ITS | Encounter Summary ---
Author Organization [facility] Address [address] [place] [address] Care Team Providers Care Director Of Veterans Affairs Name Role Phone Yossi Torres MD Primary Care Provider +1 [phone] Reason for Visit * Reason Onset Date Comments Medications Refill 03/14/2015 Encounter Details Date Type Department Care Team (Late st Contact Info) Description 03/14/2015 Refill [facility] Endocrinology - [facility] [address] [place] [address] Wilder Zaidi, 62 [facility] [address] [place] [address] Medications Refill Social History Tobacco [...] gram (1.62 %) transdermal gel pumpIndications:Jose nhypopituitarism ([facility]) Apply 3 pump actuations topically daily for 90 days Daily Max: 60.75 mg 337.5 g 0 03/15/2015 4 documented in this encounter Miscellaneous Notes * Telephone Encounter - Georgia Rice RN - 03/15/2015 1413 EDT Phone call to [facility] pharmacist I called in the Androgel, but it needs a PA, they said they faxed it 2 days ago.? I had them refax,and will give to front staff. * Telephone Encounter - Addie Burgess - 03/14/2015 1313 EDT Medication(s) Requested: [facility] Last Refill Date: 11/08/14 Last Visit Date: 08/04/14 Next Visit Date: 10/23/2015 Is patient out of medication? yes Addie Burgess 03/14/2015 13:13 documented in this encounter Plan of Treatment Upcoming Encounters Date Type Department Care Team (Late st Contact Info) Description 10/01/2024 13:40 EDT Office Visit [facility] Endocrinology - [address] [address] Wilder Zaidi, DO 62 [facility] [address] [place] [address] documented as of this encounter [...] documented as of this encounter Care Teams Director Of Veterans Affairs Relationship Specialty Start Date End Date Yossi Torres MD [address] [place] [address] [address] [place] [phone] PCP - General 04/17/11 03/14/16 documented as of this encounter
--- OUTSIDE RECORDS SUMMARY | 2024-07-22 13:39 | XMS_ITS | Encounter Summary ---
Author Organization [facility] Address [address] [place] [address] Care Team Providers Care Residential Gas Heat Technician Name Role Phone Yossi Torres MD Primary Care Provider +1 [phone] Reason for Visit * Reason Onset Date Comments Results 05/02/2015 Encounter Details Date Type Department Care Team (Late st Contact Info) Description 05/02/[address] [address] Gladys Huang RN Results Social [...] Info) Description 10/01/2024 13:40 EDT Office Visit [facility] Endocrinology [facility] [address] [place] [address] Wilder Zaidi, 62 [facility] [address] [place] [address] documented as of this encounter Visit Diagnoses Not on filedocumented in this encounter Care Teams Residential Gas Heat Technician Relationship Specialty Start Date End Date Yossi Torres MD [address] [place] [address] [address] [place] [phone] PCP - General 04/17/11 03/14/16 documented as of this encounter
--- OUTSIDE RECORDS SUMMARY | 2024-07-22 13:39 | XMS_ITS | Encounter Summary ---
Author Organization [facility] Address [address] [place] [address] Care Team Providers Care Bacteriology Technician Name Role Phone Yossi Torres MD Primary Care Provider +1 [phone] Reason for Visit * Reason Comments Pituitary Abnormality Encounter Details Date Type Department Care Team (Latest Contact Info) Description 07/26/2013 11:00 EST Office Visit [facility] Endocrinology - [facility] [address] [place], [place] [phone] Wilder Zaidi, 62 [facility] [address] [place] [address] Gonadotropin deficiency (CMS-HCC) (HCC-CMS) (Primary [...] he said he was sad by his wine steward today. Mood has been stable according to his wine steward and sister. 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 Currently lives with his caretakers accompanied today by his wine steward and his sister, Bettina. Central diabetes insipidus [...] Info) Description 10/01/2024 13:40 EDT Office Visit [facility] Endocrinology - [address] [address] Wilder Zaidi DO 62 [facility] [address] [place] [address] documented as of this encounter Results * (ABNORMAL) HEMAGRAM (07/26/2013 12:17 EST) Pathologist [facility] WBC 4.58 4.0 - 10.4 K/cmm [facility] [...] ORDER LYNDSEY Final Result Performing Organization Address [facility] Co de Phone Number [facility] [address] [place] [address] * (ABNORMAL) T4 FREE (07/26/2013 12:17 EST) Free T4 2.3(H) 0.8 - 1.8 ng/dL [facility] Blood specimen (specimen) 07/26/2013 12:17 EST 07/26/2013 15:09 EST Wilder Zaidi DO CHEMISTRY & BLOOD GAS ORDERABLES Final Result Performing Organization Address [facility] Co de Phone Number [facility] [address] [place] [address] * (ABNORMAL) ELECTROLYTES (07/26/2013 12:17 EST) Sodium [...] ORDERABLES Final Result [facility] [address] [place] [address] documented in this encounter Visit Diagnoses Diagnosis [...] may reflect changes made after this encounter. QUEtiapine (SEROQUEL) 50 mg tabletIndications:Go nadotropin deficiency (HCC-CMS),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HCC-CMS),Panhypopit uitarism (HCC-CMS),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HCC-CMS),Secondary hypothyroidism Take 25 mg by mouth daily. Takes at 25 mg at noon traZODone (DESYREL) 50 mg tabletIndications:Go nadotropin deficiency (HCC-CMS),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HCC-CMS),Panhypopit uitarism (HCC-CMS),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HCC-CMS),Secondary hypothyroidism Take 100 mg by mouth daily. 4 added in this encounter Care Teams Bacteriology Technician Relationship Specialty Start Date End Date Yossi Torres MD [address] [place] [address] [address] [place] [address] PCP - General 04/17/11 03/14/16 documented as of this encounter
--- OUTSIDE RECORDS SUMMARY | 2024-07-22 13:39 | XMS_ITS | Encounter Summary ---
Author Organization [facility] Address [address] [place] [address] Care Team Providers Care Blunger Machine Operator Name Role Phone Yossi Torres MD Primary Care Provider +1 [phone] Reason for Visit * Reason Comments Hypothyroidism F/U Encounter Details Date Type Department Care Team (Latest Contact Info) Description 08/04/2014 14:20 EST Office Visit [facility] Endocrinology - [facility] [address] [place] [address] Wilder Zaidi, DO [address] [facility] [address] [place] [address] 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HCC-CMS) (Primary Dx); Primary [...] Mood seems stable. LABORATORY DATA: Obtained at [facility] on 08/01/2013 showed a sodium [...] Info) Description 10/01/2024 13:40 EDT Office Visit [facility] Endocrinology - [facility] [address] [place] [address] Wilder Zaidi, DO [address] [place] [address] documented as of this encounter Results * (ABNORMAL) ELECTROLYTES (08/04/2014 15:24 EST) Sodium 125(L) 136 - 145 mEq/L 08/04/2014 20:16 EST [facility] Potassium 4.0 3.5 - 5.0 mEq/L 08/04/2014 20:16 EST [facility] Chloride 89(L) 96 - 110 mEq/L 08/04/2014 20:16 EST [facility] CO2 28 24 - 32 mEq/L 08/04/2014 20:16 EST [facility] Blood specimen (specimen) BLOOD SPECIMEN / Unknown 08/04/2014 15:24 EST 08/04/2014 19:15 EST Wilder Zaidi DO CHEMISTRY & BLOOD GAS ORDERABLES Final Result [facility] [address] [place] [address] * T3 FREE (08/04/2014 15:24 EST) T3, Free 2.5 2.3 - 4.2 pg/mL 08/04/2014 21:27 EST [facility] Blood specimen (specimen) BLOOD SPECIMEN / Unknown 08/04/2014 15:24 EST 08/04/2014 19:15 EST Wilder Zaidi DO CHEMISTRY & BLOOD GAS ORDERABLES Final Result Performing Organization Address City/[facility]/ZIP Co de Phone Number [facility] [address] [place] [address] * T4 FREE (08/04/2014 15:24 EST) Free T4 1.4 0.8 - 1.8 ng/dl 08/04/2014 21:27 EST [facility] Blood specimen (specimen) BLOOD SPECIMEN / Unknown 08/04/2014 15:24 EST 08/04/2014 19:15 EST us Wilder Zaidi DO CHEMISTRY & BLOOD GAS ORDERABLES Final Result [facility] [address] [place] [address] documented in this encounter Visit Diagnoses Diagnosis 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HCC-CMS)- Primary Panhypopituitarism 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HCC-CMS) Diabetes insipidus Gonadotropin deficiency ([facility]-CMS) Other anterior pituitary disorders Secondary hypothyroidism Other specified acquired hypothyroidism documented in this encounter Historical Medications * This list may reflect changes made after this encounter. testosterone (ANDROGEL) 1 % (50 mg/5 gram) gel packet Apply 5 g topically daily. 4 HYDROCODONE/ACET AMINOPHEN (VICODIN ORAL) Take 5 mg by mouth. 4 added in this encounter Care Teams Blunger Machine Operator Relationship Specialty Start Date End Date Yossi Torres MD [address] [place] [address] [address] [place] [phone] PCP - General 04/17/11 03/14/16 documented as of this encounter
--- OUTSIDE RECORDS SUMMARY | 2024-07-22 13:39 | XMS_ITS | Encounter Summary ---
Author Organization [facility] Address [address] [place] [address] Care Team Providers Care Crystal Machining Coordinator Name Role Phone Yossi Torres MD Primary Care Provider +1- [phone] Reason for Visit * Reason Onset Date Comments Labs Only 01/18/2015 Sodium results Encounter Details Date Type Department Care Team (Late st Contact Info) Description 01/18/2015 Telephone [facility] Endocrinology - [facility] [address] [place] [address] Wilder Zaidi DO [address] [facility] [address] [place] [address] Labs Only (Sodium results ) [...] Results and plan reviewed with staff at [facility]. * Telephone Encounter - Hayley Odonnell - 01/18/2015 1210 EDT Reason for Call: Labs Only Summary/Symptoms: [facility] called to verify sodium labs had been received. Requested call back. Hayley Odonnell 01/18/2015 12:10 documented in this encounter Plan of Treatment Upcoming Encounters Date Type Department Care Team (Late st Contact Info) Description 10/01/2024 13:40 EDT Office Visit [facility] Endocrinology - [facility] [address] [place] [address] Wilder Zaidi, 62 [facility] [address] [place] [address] documented as of this encounter Visit Diagnoses Not on filedocumented in this encounter Care Teams Crystal Machining Coordinator Relationship Specialty Start Date End Date Yossi Torres MD [address] [place] [address] [address] [place] [phone] PCP - General 04/17/11 03/14/16 documented as of this encounter
--- OUTSIDE RECORDS SUMMARY | 2024-07-22 13:39 | XMS_ITS | Encounter Summary ---
Author Organization [facility] Address [address] [place] [address] Care Team Providers Care Green Chain Puller Name Role Phone Yossi Torres MD Primary Care Provider +1- [phone] Reason for Visit * Reason Comments Labs Only Encounter Details Date Type Department Care Team (Latest Contact Info) Description 02/01/2014 10:45 EDT Procedure visit [facility] Endocrinology - [facility] [address] [place], [place] [id number] Wilder Zaidi, 62 [facility] [address] [place] [address] Phlebotomy, [facility] Central hypothyroidism Social History Tobacco [...] Info) Description 10/01/2024 13:40 EDT Office Visit [facility] Endocrinology - [facility] [address] [place] [address] Wilder Zaidi, DO [address] [facility] [address] [place] [address] documented as of this encounter [...] & BLOOD GAS ORDERABLES Final Result [facility] [address] [place] [address] documented in this encounter Visit Diagnoses Diagnosis Central hypothyroidism Unspecified hypothyroidism documented in this encounter Care Teams Green Chain Puller Relationship Specialty Start Date End Date Yossi Torres MD [address] [place] [address] [address] [place] [phone] PCP - General 04/17/11 03/14/16 documented as of this encounter
--- OUTSIDE RECORDS SUMMARY | 2024-07-22 13:39 | XMS_ITS | Encounter Summary ---
Author Organization [facility] Address [address] [place] [address] Care Team Providers Care Supervisor Conditioning Yard Name Role Phone Yossi Torres MD Primary Care Provider +1 [phone] Reason for Visit * Reason Onset Date Comments Orders (Non Pre-visit) 11/08/2014 MEDICATIO NS Encounter Details Date Type Department Care Team (Late st Contact Info) Description 11/08/2014 Telephone [facility] Endocrinology - [facility] [address] [place] [address] Wilder Zaidi, [address] [facility] [address] [place] [address] Orders (Non Pre-visit) (MEDICATIONS) Social [...] gram (1.62 %) transdermal gel pumpIndications:Jose nhypopituitarism ([facility]-CMS) Apply 3 pump actuations topically daily for 90 days Daily Max: 60.75 mg 75 g 1 11/08/2014 5 documented in this encounter Miscellaneous Notes * Telephone Encounter - Chavez, [place] - 11/08/2014 1556 EDT Phoned in androgel to [facility]. Spoke to pharmacist. * Telephone Encounter - Tracy Nunez - 11/08/2014 1037 EDT Reason for Call: Orders (Non Pre-visit) Summary/Symptoms - Pt is [facility], needing new orders of hydrocortisone and androgel sent to [facility]. Also the androgel is currently 3 pumps 1x daily @ 1% per Lali (differs from script). Pt has 5 days left of both meds Tracy Nunez 11/08/2014 10:37 documented in this encounter Plan of Treatment Upcoming Encounters Date Type Department Care Team (Late st Contact Info) Description 10/01/2024 13:40 EDT Office Visit [facility] Endocrinology - [address] [address] Wilder Zaidi, [address] [facility] [address] [place] [address] documented as of this encounter [...] as of this encounter Care Teams Supervisor Conditioning Yard Relationship Specialty Start Date End Date Yossi Torres MD [address] [place] [address] [address] [place] [phone] PCP - General 04/17/11 03/14/16 documented as of this encounter
--- OUTSIDE RECORDS SUMMARY | 2024-07-22 13:39 | XMS_ITS | Encounter Summary ---
Author Organization [facility] Address [address] [place] [address] Care Team Providers Care Correctional Substance Abuse Counselor Name Role Phone Yossi Torres MD Primary Care Provider Emilee Cody MD Primary Care Provider + Reason for Visit * Reason Onset Date Comments Results 01/19/2015 Medication Management 01/19/2015 Encounter Details Date Type Department Care Team (Late st Contact Info) Description 01/19/2015 Telephone [facility] Endocrinology - [facility] [address] [place] [address] Wilder Zaidi, 62 [facility] [address] [place] [address] Results; Medication Management Social History [...] Results and Medication Management Summary/Symptoms: Please call residential and speak to Jonatan or Lali. They have questions about Fluid restriction for Miguel Angel. Requesting call back today when a moment. Alicia Chi 01/19/2015 11:52 * Telephone Encounter - Wilder Zaidi DO - 01/19/2015 1133 EDT Please contact patient via phone. [facility] . Advise patient's caretakers that his sodium wasnormal at 141. Please continue current dose of DDAVP and fluid restriction. Repeat sodium and 14 days documented in this encounter Plan of Treatment Upcoming Encounters Date Type Department Care Team (Late st Contact Info) Description 10/01/2024 13:40 EDT Office Visit [facility] Endocrinology - [facility] [address] [place], [place] [phone] Wilder Zaidi DO 62 [facility] [address] [place] [address] documented as of this encounter Visit Diagnoses Not on filedocumented in this encounter Care Teams Correctional Substance Abuse Counselor Relationship Specialty Start Date End Date Yossi Torres MD [address] [place] [address] [facility] 2 [place] [phone] PCP - General 04/17/11 03/14/16 Emilee Cody MD [address] [place] [address] PCP - General 03/15/16 09/29/18 documented as of this encounter
--- OUTSIDE RECORDS SUMMARY | 2024-07-22 13:39 | XMS_ITS | Encounter Summary ---
Author Organization [facility] Address [address] [place] [address] Care Team Providers Care Gas Regulator Repairer Helper Name Role Phone Yossi Torres MD Primary Care Provider [phone]- [phone] Reason for Visit * Reason Onset Date Comments Labs Only 01/29/2016 Results 01/31/2016 lab,7.22,[facility] Encounter Details Date Type Department Care Team (Late st Contact Info) Description 01/29/2016 Telephone [facility] Endocrinology - [address] [phone] Georgia Rice RN Labs Only; Results (lab,7.22,[facility]) Social History Tobacco Use Types Packs/Day [...] and repeat in 2 wks. [facility] notified. * Telephone Encounter - Day Littlejohn MD - 01/31/2016 1710 EDT Repeat the Na done in [place] and found slip in Dr. Zaidi's box. Level is 133 (d=193-700)---but last few draws 141-146. In October his [...] if lab results from 01.25 done at [facility] are available yet. Per Dr. Dejuan Ho out sick and will ask a covering. Will call back as soon as she has an answer. Alicia Chi 01/31/2016 15:49 * Telephone Encounter - Georgia Rice RN - 01/29/2016 1234 EDT Received lab results from [facility] Resulted 01/26/16 Sodium-133 L (B=[id number]) documented in this encounter Plan of Treatment Upcoming Encounters Date Type Department Care Team (Late st Contact Info) Description 10/01/2024 13:40 EDT Office Visit [facility] End[facility] - [place] [address] [place] [address] Wilder Zaidi, [address] [facility] [address] [place] [address] documented as of this encounter Visit Diagnoses Not on filedocumented in this encounter Care Teams Gas Regulator Repairer Helper Relationship Specialty Start Date End Date Yossi Torres MD [address] [place] [address] [facility] 2 [place] [phone] PCP - General 04/17/11 03/14/16 documented as of this encounter
--- OUTSIDE RECORDS SUMMARY | 2024-07-22 13:39 | XMS_ITS | Encounter Summary ---
Author Organization [facility] Address [address] [place] [address] Care Team Providers Care Paid Search Marketing Analyst Name Role Phone Yossi Torres MD Primary Care Provider +[phone] Emilee Cody MD Primary Care Provider + Reason for Visit * Reason Onset Date Comments Results 08/05/2014 Encounter Details Date Type Department Care Team (Late st Contact Info) Description 08/05/2014 Telephone [facility] Endocrinology - [facility] [address] [place] [address] Wilder Zaidi DO [address] [facility] [address] [place] [address] Results Social History Tobacco Use [...] 1317 EST Received faxed lab results from [facility] Sodium--145 Range (137-145) * Telephone Encounter [...] 13:40 EDT Office Visit [facility] Endocrinology - [facility] [address] [place] [address] Wilder Zaidi DO [address] [facility] [address] [place] [phone] documented as of this encounter Visit Diagnoses Not on filedocumented in this encounter Care Teams Paid Search Marketing Analyst Relationship Specialty Start Date End Date Yossi Torres MD [address] [place] [phone] PCP - General 04/17/11 03/14/16 Emilee Cody MD [address] [place] [address] PCP - General 03/15/16 09/29/18 documented as of this encounter
--- OUTSIDE RECORDS SUMMARY | 2024-07-22 13:39 | XMS_ITS | Encounter Summary ---
Author Organization [facility] Address [address] [place] [address] Care Team Providers Care Machinist Job Setter Name Role Phone Yossi Torres MD Primary Care Provider +[phone] Emilee Cody MD Primary Care Provider + Reason for Visit * Reason Onset Date Comments Returning Call 02/02/2014 to [place] Returning Call 02/02/2014 Encounter Details Date Type Department Care Team (Late st Contact Info) Description 02/01/2014 Telephone [facility] Endocrinology - [facility] [address] [place] [address] Wilder Zaidi, 62 [facility] [address] [place] [address] Returning Call (to [place]); Returning [...] Telephone Encounter - Ludmila Harris - 02/02/2014 6498 EDT Bettina is returning Georgia's call. * [...] Info) Description 10/01/2024 13:40 EDT Office Visit [facility] Endocrinology - [address] [address] Wilder Zaidi DO 62 [facility] [address] [place] [address] documented as of this encounter Visit Diagnoses Not on filedocumented in this encounter Care Teams Machinist Job Setter Relationship Specialty Start Date End Date Yossi Torres MD [address] [place] [address] [address] [place] [phone] PCP - General 04/17/11 03/14/16 Emilee Cody MD [address] [place] [address] PCP - General 03/15/16 09/29/18 documented as of this encounter
--- OUTSIDE RECORDS SUMMARY | 2024-07-22 13:39 | XMS_ITS | Encounter Summary ---
Author Organization [facility] Address [address] [place] [address] Care Team Providers Care Body Artist Name Role Phone Yossi Torres MD Primary Care Provider [phone]- [phone] Reason for Visit * Reason Onset Date Comments Discuss Test Results 05/18/2015 Encounter Details Date Type Department Care Team (Late st Contact Info) Description 05/18/2015 Telephone [facility] Endocrinology - [facility] [address] [place] [address] Wilder Zaidi, 62 [facility] [address] [place] [address] Discuss Test Results Social History [...] - 05/18/2015 1544 EST Sodium 143 from [facility]. * Telephone Encounter - Tracy Nunez - 05/18/2015 2943 EST Reason for Call: Discuss Test Results Summary/Symptoms: Sodium results done Friday @ [facility] Tracy Magdalenobrad 05/18/2015 13:44 documented in this encounter Plan of Treatment Upcoming Encounters Date Type Department Care Team (Late st Contact Info) Description 10/01/2024 13:40 EDT Office Visit [facility] Endocrinology - [facility] [address] [place] [address] Wilder Zaidi, 62 [facility] [address] [place] [address] documented as of this encounter Visit Diagnoses Not on filedocumented in this encounter Care Teams Body Artist Relationship Specialty Start Date End Date Yossi Torres MD [address] [place] [address] [facility] 2 [place] [phone] PCP - General 04/17/11 03/14/16 documented as of this encounter
--- OUTSIDE RECORDS SUMMARY | 2024-07-22 13:39 | XMS_ITS | Encounter Summary ---
Author Organization [facility] Address [address] [place] [address] Care Team Providers Care Coconut Boiler Name Role Phone Yossi Torres MD Primary Care Provider Emilee Cody MD Primary Care Provider + Ren Vaz MD Primary Care Provider [phone] Reason for Visit * Reason Comments Other Encounter Details Date Type Department Care Team (Late st Contact Info) Description 07/27/2013 Refill [facility] Endocrinology - [facility] [address] [place] [address] Wilder Zaidi, 62 [facility] [address] [place] [address] Other Social History Tobacco Use [...] Office Visit [facility] Endocrinology - [place] [address] [place] [address] Wilder Zaidi, 62 [facility] [address] [place] [address] documented as of this encounter Visit Diagnoses Not on filedocumented in this encounter Discontinued Medications Medication Sig Discontinue Reason Start Date End Da te desmopressin (DDAVP) 0.1 mg tablet TAKE ONE TABLET BY MOUTH EVERY DAY AND TAKE 1/2 TABLET EVERY EVENING Dose adjustment 04/19/2013 07/29/2013 documented as of this encounter Care Teams Coconut Boiler Relationship Specialty Start Date End Date Yossi Torres MD [address] [place] [address] [phone] PCP - General 04/17/11 03/14/16 Emilee Cody MD [address] [place] [phone] PCP - General 03/15/16 09/29/18 Ren Vaz MD [address] [place] [address] [place] [address] PCP - General 09/30/18 documented as of this encounter
--- OUTSIDE RECORDS SUMMARY | 2024-07-22 13:39 | XMS_ITS | Encounter Summary ---
Author Organization [facility] Address [address] [place] [address] Care Team Providers Care Magnetic Grinder Operator Name Role Phone Yossi Torres MD Primary Care Provider [phone] Reason for Visit * Reason Onset Date Comments Results 10/13/2015 Encounter Details Date Type Department Care Team (Late st Contact Info) Description 10/13/2015 Telephone [facility] Endocrinology - [facility] [address] [place] [address] Belgica ChavezBRENNEN 62 [facility] [address] [place] [address] Results Social History Tobacco Use [...] Info) Description 10/01/2024 13:40 EDT Office Visit [facility] Endocrinology - [facility] [address] [place] [address] Wilder Zaidi, 62 [facility] [address] [place] [address] documented as of this encounter Visit Diagnoses Not on filedocumented in this encounter Care Teams Magnetic Grinder Operator Relationship Specialty Start Date End Date Yossi Torres MD [address] [place] [address] 2 [place] [phone] PCP - General 04/17/11 03/14/16 documented as of this encounter
--- OUTSIDE RECORDS SUMMARY | 2024-07-22 13:39 | XMS_ITS | Encounter Summary ---
Author Organization [facility] Address [address] [place] [address] Care Team Providers Care Weathercaster Name Role Phone Yossi Torres MD Primary Care Provider [phone] Reason for Visit * Reason Onset Date Comments Other 01/27/2014 Encounter Details Date Type Department Care Team (Late st Contact Info) Description 01/27/2014 Telephone [facility] [address] [place] [address] Wilder Zaidi, 62 [facility] [address] [place] [address] Other Social History Tobacco Use [...] Visit [facility] Endocrinology [address] [address] Wilder Zaidi, DO [address] [facility] [address] [place] [address] documented as of this encounter Visit Diagnoses Not on filedocumented in this encounter Care Teams Weathercaster Relationship Specialty Start Date End Date Yossi Torres MD [address] [place] [address] [facility] 2 [place] [phone] PCP - General 04/17/11 03/14/16 documented as of this encounter
--- OUTSIDE RECORDS SUMMARY | 2024-07-22 13:39 | XMS_ITS | Encounter Summary ---
Author Organization [facility] Address [address] [place] [address] Care Team Providers Care Production Service Manager Name Role Phone Yossi Torres MD Primary Care Provider [phone] Emilee Cody MD Primary Care Provider + Reason for Visit * Reason Onset Date Comments Prior Auth, Medication 03/13/2016 levothyro xine Encounter Details Date Type Department Care Team (Late st Contact Info) Description 03/13/2016 Telephone [facility] Endocrinology - [facility] [address] [place] [address] Wilder Zaidi, 62 [facility] [address] [place] [address] Prior Auth, Medication (levothyroxine) Social [...] Durant - 03/13/2016 1311 EDT Miguel Angel's transplant case manager called to advise that the [...] Info) Description 10/01/2024 13:40 EDT Office Visit [facility] Endocrinology - [address] [address] Wilder Zaidi, 62 [facility] [address] [place] [address] documented as of this encounter Visit Diagnoses Not on filedocumented in this encounter Discontinued Medications Medication Sig Discontinue Reason Start Date End Da te levothyroxine (SYNTHROID) 150 mcg tablet TAKE ONE TABLET BY MOUTH EVERY DAY Reorder 05/04/2015 03/18/2016 documented as of this encounter Care Teams Production Service Manager Relationship Specialty Start Date End Date Yossi Torres MD [address] [place] [address] [address] [place] [phone] PCP - General 04/17/11 03/14/16 Emilee Cody MD [facility] [place], [place] [phone] PCP - General 03/15/16 09/29/18 documented as of this encounter
--- OUTSIDE RECORDS SUMMARY | 2024-07-22 13:39 | XMS_ITS | Encounter Summary ---
Author Organization [facility] Address [address] [place] [address] Care Team Providers Care Passport Support Associate Name Role Phone Yossi Torres MD Primary Care Provider +1 [phone] Reason for Visit * Reason Onset Date Comments Results 07/29/2013 Encounter Details Date Type Department Care Team (Late st Contact Info) Description 07/29/2013 Telephone [facility] Endocrinology - [facility] [address] [place] [address] Wilder Zaidi, [address] [facility] [address] [place] [address] Results Social History Tobacco Use [...] reviewed the patient's mostrecent laboratory results from [facility] dated 07/26/13. Advise that sodium is normal [...] Info) Description 10/01/2024 13:40 EDT Office Visit [facility] Endocrinology - [address] [address] Wilder Zaidi DO [address] [place] [address] [address] [place] [address] documented as [...] documented as of this encounter Care Teams Passport Support Associate Relationship Specialty Start Date End Date Yossi Torres MD [address] [place] [address] DR BUITRAGO [address] [place] [phone] PCP - General 04/17/11 03/14/16 documented as of this encounter
--- OUTSIDE RECORDS SUMMARY | 2024-07-22 13:39 | XMS_ITS | Encounter Summary ---
Author Organization [facility] Address [address] [place] [address] Care Team Providers Care Study Lead Name Role Phone Yossi Torres MD Primary Care Provider +1- [phone] Reason for Visit * Reason Onset Date Comments Follow-up 09/01/2013 Encounter Details Date Type Department Care Team (Late st Contact Info) Description 09/01/2013 Telephone [facility] Endocrinology - [facility] [address] [place] [address] Wilder Zaidi, [address] [facility] [address] [place] [address] Follow-up Social History Tobacco Use [...] out of range as well. I called [facility] to have the results faxed to us. 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, Bettina disconnected call abruptly documented in this encounter Plan of Treatment Upcoming Encounters Date Type Department Care Team (Late st Contact Info) Description 10/01/2024 13:40 EDT Office Visit [facility] Endocrinology - [facility] [address] [place] [address] Wilder Zaidi, DO [address] [facility] [address] [place] [address] documented as of this encounter Visit Diagnoses Not on filedocumented in this encounter Discontinued Medications Medication Sig Discontinue Reason Start Date End Da te levothyroxine (SYNTHROID) 175 mcg tablet Take 1 Tab by mouth daily. Reorder 07/29/2013 09/01/2013 documented as of this encounter Care Teams Study Lead Relationship Specialty Start Date End Date Yossi Torres MD [address] [place] [address] DR BUITRAGO [address] [place] [phone] PCP - General 04/17/11 03/14/16 documented as of this encounter
--- OUTSIDE RECORDS SUMMARY | 2024-07-22 13:39 | XMS_ITS | Encounter Summary ---
Author Organization [facility] Address [address] [place] [address] Care Team Providers Care Block Hand Name Role Phone Yossi Torres MD Primary Care Provider +1 [phone] Reason for Visit * Reason Comments Labs Only Encounter Details Date Type Department Care Team (Latest Contact Info) Description 08/04/2014 15:15 EST Procedure visit [facility] Endocrinology - [address] [address] Rachana Cuello MD Phlebotomy, [facility] Endo 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CMS-HCC) (HCC-CMS); [...] Description 10/01/2024 13:40 EDT Office Visit [facility] Endocrinology - [place] [address] [place], [place] [address] Wilder Zaidi, DO [address] [place] [address] documented as of this encounter Procedures Procedure Name Priority Date/Time Associated Diagnosis Comments T3 FREE Routine 08/04/2014 15:24 EST Secondary hypothyroidism T4 FREE Routine 08/04/2014 15:24 EST Secondary hypothyroidism ELECTROLYTES Routine 08/04/2014 15:24 EST 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CMS-HCC) (HCC-CMS) documented in this encounter Results * T3 FREE (08/04/2014 15:24 EST) T3, Free 2.5 2.3 - 4.2 pg/mL 08/04/2014 21:27 EST [facility] Blood specimen (specimen) BLOOD SPECIMEN / Unknown 08/04/2014 15:24 EST 08/04/2014 19:15 EST us Wilder Zaidi DO CHEMISTRY & BLOOD GAS ORDERABLES Final Result [facility] [address] [place] [phone] * T4 FREE (08/04/2014 15:24 EST) Free T4 1.4 0.8 - 1.8 ng/dl 08/04/2014 21:27 EST [facility] Blood specimen (specimen) BLOOD SPECIMEN / Unknown 08/04/2014 15:24 EST 08/04/2014 19:15 EST Wilder Zaidi DO CHEMISTRY & BLOOD GAS ORDERABLES Final Result Performing Organization Address [facility] Co de Phone Number [facility] [address] [place] [address] * (ABNORMAL) ELECTROLYTES (08/04/2014 15:24 EST) Sodium 125(L) 136 - 145 mEq/L 08/04/2014 20:16 EST [facility] Potassium 4.0 3.5 - 5.0 mEq/L 08/04/2014 20:16 EST [facility] Chloride 89(L) 96 - 110 mEq/L 08/04/2014 20:16 EST [facility] CO2 28 24 - 32 mEq/L 08/04/2014 20:16 EST [facility] Blood specimen (specimen) BLOOD SPECIMEN / Unknown 08/04/2014 15:24 EST 08/04/2014 19:15 EST Wilder Zaidi DO CHEMISTRY & BLOOD GAS ORDERABLES Final Result Performing Organization Address [facility] Co de Phone Number [facility] [address] [place] [address] documented in this encounter Visit Diagnoses Diagnosis 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HCC-CMS) Diabetes insipidus Secondary hypothyroidism Other specified acquired hypothyroidism documented in this encounter Care Teams Block Hand Relationship Specialty Start Date End Date Yossi Torres MD [address] [place] [address] DR BUITR[address]O [address] [place] [phone] PCP - General 04/17/11 03/14/16 documented as of this encounter
--- OUTSIDE RECORDS SUMMARY | 2024-07-22 13:39 | XMS_ITS | Encounter Summary ---
Author Organization [facility] Address [address] [place] [address] Care Team Providers Care Torch Burner Name Role Phone Yossi Torres MD Primary Care Provider +1 [phone] Emilee Cody MD Primary Care Provider + Reason for Visit * Reason Onset Date Comments Discuss Test Results 02/20/2015 Sodium Chec k last week Encounter Details Date Type Department Care Team (Late st Contact Info) Description 02/20/2015 Telephone [facility] Endocrinology - [facility] [address] [place] [address] Wilder Zaidi DO [address] [facility] [address] [place] [address] Discuss Test Results (Sodium Check [...] Encounter - Georgia Rice RN - 02/21/2015 5684 EDT Phone call to Lali Informed her [...] - 02/21/2015 1117 EDT Phone call to [facility] Lab Resulted on 02/15/15 Sodium-141 * Telephone Encounter - Addie Burgess - 02/20/2015 1512 EDT Reason for Call: Discuss Test Results Summary/Symptoms: Please call [facility] mobile with Sodium check results. Addie Burgess 02/20/2015 15:12 * Telephone Encounter - Belgica Camara V. - 02/20/2015 1248 EDT Please call Jonatan or Lali at [facility] with Sodium Check results done at [place] last week. documented in this encounter Plan of Treatment Upcoming Encounters Date Type Department Care Team (Late st Contact Info) Description 10/01/2024 13:40 EDT Office Visit [facility] Endocrinology - [facility] [address] [place] [address] Wilder Zaidi DO [address] [facility] [address] [place] [address] documented as of this encounter Visit Diagnoses Not on filedocumented in this encounter Care Teams Torch Burner Relationship Specialty Start Date End Date Yossi Torres MD [address] [place] [address] [address] [place] [phone] PCP - General 04/17/11 03/14/16 Emilee Cody MD [address] [place] [phone] PCP - General 03/15/16 09/29/18 documented as of this encounter
--- OUTSIDE RECORDS SUMMARY | 2024-07-22 13:39 | XMS_ITS | Encounter Summary ---
Author Organization [facility] Address [address] [place] [address] Care Team Providers Care Machine Puller And Laster Name Role Phone Yossi Torres MD Primary Care Provider [phone]- [phone] Reason for Visit * Reason Onset Date Comments Diarrhea 08/28/2015 2 days now Medication Questions 08/28/2015 Hydrocortis one Coordination Of Care 08/30/2015 Medication clarification Encounter Details Date Type Department Care Team (Late st Contact Info) Description 08/28/2015 Telephone [facility] Endocrinology - [facility] [address] [place] [address] Wilder Zaidi, [address] [facility] [address] [place] [address] Diarrhea (2 days now); Medication [...] Encounter - Georgia Rice RN - 08/30/2015 1354 EST Phone call to Belgica at the [facility] Miguel Angel is not having diarrhea [...] Saenz - 08/30/2015 0820 EST Belgica from [facility] would like to verify the medication that Dr. Stanley wants them to increase the dose on. He continues to have diarrhea. Pls advise * Telephone Encounter - Gladys Huang RN - 08/29/2015 0922 EST Images from the original note were not included. Message Received: Yesterday ? Guerrero Gonzalez MD Sinclair, Barbara, RN ? Yes it should be doubled, the usp physician should be notified so that he finds out thecause of the diarrhea, double dose as long as she is sick Phone call to [facility]. Above message given. Erick Kidd no longer has diarrhea so will not double dose. Verbalized understanding. No barriers to understanding. * Telephone Encounter - Gladys Huang RN - 08/28/2015 1530 EST Phone call to Adriane at [facility]. Diarrhea since mid day yesterday. Today 4 times since 8 am. No other symptoms. Feeling ok. No fever. Eating well. Drinking good. Will send to Dr. Stanley for review. * Telephone Encounter - Alicia Chi - 08/28/2015 1501 EST Reason for Call: Diarrhea and Medication Questions Summary/Symptoms: Erick Forrest, caregiver at the [facility], pt has had diarrhea for 2 days now and pt's family is wondering if the hydrocortisone should be doubled. Adriane requesting a call back today when a moment. Please call her back at [phone] or [phone]. Alicia Chi 08/28/2015 15:01 documented in this encounter Plan of Treatment Upcoming Encounters Date Type Department Care Team (Late st Contact Info) Description 10/01/2024 13:40 EDT Office Visit [facility] Endocrinology - [facility] [address] [place] [address] Wilder Zaidi, [address] [facility] [address] [place] [address] documented as of this encounter Visit Diagnoses Not on filedocumented in this encounter Care Teams Machine Puller And Laster Relationship Specialty Start Date End Date Yossi Torrse MD [address] [place] [address] [address] [place] [phone] PCP - General 04/17/11 03/14/16 documented as of this encounter
--- OUTSIDE RECORDS SUMMARY | 2024-07-22 13:39 | XMS_ITS | Encounter Summary ---
Author Organization [facility] Address [address] [place] [address] Care Team Providers Care Termite Inspector Name Role Phone Yossi Torres MD Primary Care Provider Reason for Visit * Reason Onset Date Comments Labs Only 08/24/2015 Encounter Details Date Type Department Care Team (Late st Contact Info) Description 08/24/2015 Telephone [facility] Endocrinology - [facility] [address] [place] [address] Wilder Zaidi DO [address] [facility] [address] [place] [address] Labs Only Social History Tobacco [...] call to Amy. Santoyo detailed message on Actixil. Call back if any questions or problems. [...] Patient had labs drawn on 08/14/15 at [facility], called for results. Not in [facility]. Georgia Condon 08/24/2015 13:47 documented in this encounter Plan of Treatment Upcoming Encounters Date Type Department Care Team (Late st Contact Info) Description 10/01/2024 13:40 EDT Office Visit [facility] Endocrinology - [facility] [address] [place] [address] Wilder Zaidi DO [address] [facility] [address] [place] [address] documented as of this encounter Visit Diagnoses Not on filedocumented in this encounter Care Teams Termite Inspector Relationship Specialty Start Date End Date Yossi Torres MD [address] [place] [address] [address] [place] [phone] PCP - General 04/17/11 03/14/16 documented as of this encounter
--- OUTSIDE RECORDS SUMMARY | 2024-07-22 13:39 | XMS_ITS | Encounter Summary ---
Author Organization [facility] Address [address] [place] [address] Care Team Providers Care Medical Insurance Claims Specialist Name Role Phone Yossi Torres MD Primary Care Provider [phone]- [phone] Reason for Visit * Reason Onset Date Comments Results 12/30/2014 Encounter Details Date Type Department Care Team (Late st Contact Info) Description 12/30/2014 Telephone [facility] Endocrinology - [facility] [address] [place] [address] Wilder Zaidi DO [address] [facility] [address] [place] [address] Results Social History Tobacco Use [...] Pt has sodium level testing todayt @ [facility] and caregiver is calling for results. Onset and Duration? na Urgent? Gladys Willingham 12/30/2014 14:15 documented in this encounter Plan of Treatment Upcoming Encounters Date Type Department Care Team (Late st Contact Info) Description 10/01/2024 13:40 EDT Office Visit [facility] Endocrinology - [facility] [address] [place] [address] Wilder Zaidi, [address] [facility] [address] [place] [address] documented as of this encounter Visit Diagnoses Not on filedocumented in this encounter Care Teams Medical Insurance Claims Specialist Relationship Specialty Start Date End Date Yossi Torres MD [address] [place] [address] [address] [place] [phone] PCP - General 04/17/11 03/14/16 documented as of this encounter
--- OUTSIDE RECORDS SUMMARY | 2024-07-22 13:39 | XMS_ITS | Encounter Summary ---
Author Organization [facility] Address [address] [place] [address] Care Team Providers Care Color Technician Name Role Phone Yossi Torres MD Primary Care Provider [phone] Reason for Visit * Reason Onset Date Comments Prior Auth, Medication 03/15/2015 Androgel Encounter Details Date Type Department Care Team (Late st Contact Info) Description 03/15/2015 Telephone [facility] Endocrinology - [facility] [address] [place] [address] Wilder Zaidi, [address] [facility] [address] [place] [address] Prior Auth, Medication (Androgel) Social [...] for: Androgel Gel 1.62%, 150/30 days Drug [facility]#: [id number] Tracking Number: [id number] Dates: 03/15/2015 to 03/15/2016 PA #: [id number] Called pharmacy & left message with patients sister that androgel has been approved. * Telephone Encounter - DelawareLucía - 03/15/2015 1451 EDT Rcvd fax from pharmacy requesting PA for Androgel - completed [place] Medicaid PA Form using [employer] and e-filed to initiate process. documented in this encounter Plan of Treatment Upcoming Encounters Date Type Department Care Team (Late st Contact Info) Description 10/01/2024 13:40 EDT Office Visit [facility] Endocrinology - [address] [address] Wilder Zaidi, [address] [facility] [address] [place] [address] documented as of this encounter Visit Diagnoses Not on filedocumented in this encounter Care Teams Color Technician Relationship Specialty Start Date End Date Yossi Torres MD [address] [place] [address] [address] [place] [phone] PCP - General 04/17/11 03/14/16 documented as of this encounter
--- OUTSIDE RECORDS SUMMARY | 2024-07-22 13:39 | XMS_ITS | Encounter Summary ---
Author Organization [facility] Address [address] [place] [address] Care Team Providers Care Hydraulic Hammer Operator Name Role Phone Yossi Torres MD Primary Care Provider Emilee oCdy MD Primary Care Provider + Ren Vaz MD Primary Care Provider [phone] Reason for Visit * Reason Onset Date Comments Follow-up 09/07/2013 Update 09/07/2013 Encounter Details Date Type Department Care Team (Late st Contact Info) Description 09/07/2013 Telephone [facility] Endocrinology - [facility] [address] [place] [address] Wilder Zaidi, [address] [facility] [address] [place] [address] Follow-up; Update Social History Tobacco [...] got a verbal result from lab at [facility] of 152. She is wondering if [...] EDT Office Visit [facility] Endocrinology - [facility] [address] [place] [address] Wilder Zaidi, [address] [facility] [address] [place] [address] documented as of this encounter Visit Diagnoses Not on filedocumented in this encounter Care Teams Hydraulic Hammer Operator Relationship Specialty Start Date End Date Yossi Torres MD [address] [place] [address] [phone] PCP - General 04/17/11 03/14/16 Emilee Cody MD [address] [place] [phone] PCP - General 03/15/16 09/29/18 Ren Vaz MD [address] [place] [address] [place] [address] PCP - General 09/30/18 documented as of this encounter
--- OUTSIDE RECORDS SUMMARY | 2024-07-22 13:39 | XMS_ITS | Encounter Summary ---
Author Organization [facility] Address [address] [place] [address] Care Team Providers Care Radio Rigger Name Role Phone Yossi Torres MD Primary Care Provider [phone] Reason for Visit * Reason Onset Date Comments Labs Only 01/10/2015 Returning Call 01/10/2015 [place] Encounter Details Date Type Department Care Team (Late st Contact Info) Description 01/10/2015 Telephone [facility] Endocrinology - [facility] [address] [place] [address] Wilder Zaidi, [address] [facility] [address] [place] [address] Labs Only; Returning Call (Belgica) [...] 01/10/2015 1603 EDT Spoke with employee at [facility]. They did increase his fluids to 70 [...] - 01/10/2015 1313 EDT Telephone call to [facility]. It was in fact 145 on [...] Info) Description 10/01/2024 13:40 EDT Office Visit [facility] Endocrinology - [facility] [address] [place] [address] Wilder Zaidi DO [address] [facility] [address] [place] [phone] documented as of this encounter Visit Diagnoses Diagnosis 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HCC-[facility])- Primary Diabetes insipidus documented in this encounter Care Teams Radio Rigger Relationship Specialty Start Date End Date Yossi Torres MD [address] [place] [address] [address] [place] [phone] PCP - General 04/17/11 03/14/16 documented as of this encounter
--- OUTSIDE RECORDS SUMMARY | 2024-07-22 13:39 | XMS_ITS | Encounter Summary ---
Author Organization [facility] Address [address] [place] [address] Care Team Providers Care Application Integration Specialist Name Role Phone Yossi Torres MD Primary Care Provider [phone] Reason for Visit * Reason Comments Other Encounter Details Date Type Department Care Team (Late st Contact Info) Description 04/19/[address] [facility] Endocrinology - [facility] [address] [place] [address] Wilder Zaidi, DO [address] [facility] [address] [place] [address] Other Social History Tobacco Use [...] Encounter - Karen Tellez L - 04/19/2013 3841 EDT Miguel Angel has not been seen [...] Info) Description 10/01/2024 13:40 EDT Office Visit [facility] Endocrinology - [facility] [address] [place] [address] Wilder Zaidi, [address] [facility] [address] [place] [address] documented as of this encounter Visit Diagnoses Not on filedocumented in this encounter Discontinued Medications Medication Sig Discontinue Reason Start Date End Da te desmopressin (DDAVP) 0.1 mg tablet TAKE ONE TABLET BY MOUTH EVERY MORNING AND 1/2 TABLET EVERY EVENING Reorder 03/03/2013 04/19/2013 documented as of this encounter Care Teams Application Integration Specialist Relationship Specialty Start Date End Date Yossi Torres MD [address] [place] [address] [address] BU[address]RAGO [address] [place] [phone] PCP - General 04/17/11 03/14/16 documented as of this encounter
--- OUTSIDE RECORDS SUMMARY | 2024-07-22 13:39 | XMS_ITS | Encounter Summary ---
Author Organization [facility] Address [address] [place] [address] Care Team Providers Care Warp Preparer Name Role Phone Yossi Torres MD Primary Care Provider [phone] Reason for Visit * Reason Onset Date Comments Discuss Test Results 02/03/2015 Sodium Leve ls Encounter Details Date Type Department Care Team (Late st Contact Info) Description 02/03/2015 Telephone [facility] Endocrinology - [facility] [address] [place] [address] Wilder Zaidi DO [address] [facility] [address] [place] [address] Discuss Test Results (Sodium Levels) [...] Belgica Chavez - 02/03/2015 0929 EDT Called [facility] drawn 01/31/15 Na level: 141 Unchanged from previous 2 wks ago. Continue current fluid restricton of 80 oz and retest again in 2 wks. * Telephone Encounter - Yany Lauren - 02/03/2015 0901 EDT Reason for Call: Discuss Test Results Summary/Symptoms: Jonatan at Pts alf calling to receive Pts Sodium levels he had done at [facility]. Please call back to discuss. Jonatan states as soon as possible because he will notbe available all day. Lauren Slade 02/03/2015 9:01 documented in this encounter Plan of Treatment Upcoming Encounters Date Type Department Care Team (Late st Contact Info) Description 10/01/2024 13:40 EDT Office Visit [facility] Endocrinology - [facility] [address] [place] [address] Wilder Zaidi, [address] [facility] [address] [place] [phone] documented as of this encounter Visit Diagnoses Not on filedocumented in this encounter Care Teams Warp Preparer Relationship Specialty Start Date End Date Yossi Torres MD [address] [place] [address] [address] [place] [phone] PCP - General 04/17/11 03/14/16 documented as of this encounter
--- OUTSIDE RECORDS SUMMARY | 2024-07-22 13:39 | XMS_ITS | Encounter Summary ---
Author Organization [facility] Address [address] [place] [address] Care Team Providers Care Watch Assembly Inspector Name Role Phone Yossi Torres MD Primary Care Provider [phone] Reason for Visit * Reason Onset Date Comments Abnormal Lab 09/12/2013 Encounter Details Date Type Department Care Team (Late st Contact Info) Description 09/12/2013 Telephone [facility] Endocrinology - [facility] [address] [place] [address] Day Littlejohn MD PhD [address] [facility] [address] [place] [address] Abnormal Lab Social History Tobacco [...] Encounter - Day Littlejohn MD - 09/12/2013 0372 EDT Called from [facility] that [...] Info) Description 10/01/2024 13:40 EDT Office Visit [facility] Endocrinology - [facility] [address] [place] [address] Wilder Zaidi, [address] [facility] [address] [place] [address] documented as of this encounter Visit Diagnoses Not on filedocumented in this encounter Care Teams Watch Assembly Inspector Relationship Specialty Start Date End Date Yossi Torres MD [address] [place] [address] 2 [place] [phone] PCP - General 04/17/11 03/14/16 documented as of this encounter
--- OUTSIDE RECORDS SUMMARY | 2024-07-22 13:39 | XMS_ITS | Encounter Summary ---
Author Organization [facility] Address [address] [place] [address] Care Team Providers Care Machine Operator General Name Role Phone Yossi Torres MD Primary Care Provider [phone] Reason for Visit * Reason Onset Date Comments Prior Auth, Medication 01/17/2015 Encounter Details Date Type Department Care Team (Late st Contact Info) Description 01/17/2015 Telephone [facility] - [facility] [address] [place] [address] Wilder Zaidi, 62 [facility] [address] [place] [address] Prior Auth, Medication Social History [...] - 01/19/2015 1650 EDT Lisseth fax from [place] Medicaid with APPROVAL for: Drug NDC # and Name: [id number] - Levothyroxin Tab 150 mcg Tracking #: [id number] PA #: [id number] Dates: 01/19/2015- 01/20/2016 Qty / Days Supply Restrictions: [place] Medicaid ID#: [id number] Called Pharmacy and they had all ready blister packed and ready to go as soon as we provided approval. * Telephone Encounter - Lucía Bundy - 01/18/2015 1104 EDT Formerly Named [facility] signed form back from Dr. Zaidi and faxed to [place] Medicaid at [phone] to initiate PA process. * Telephone Encounter - Dina Otero - 01/17/2015 1712 EDT Received fax for Levothyroxine override to blister pack - the pharmacy indicates the patient lives in a [facility] and they can only fill 30 day supply at a time. Completed [place] Exception to required 90 day maintenance medication fill form & provided to Dr. Zaidi for signature. * Telephone Encounter - Gladys Willingham - 01/17/2015 0908 EDT Reason for Call: Prior Auth, Medication Summary/SymptomsPt said that [facility] needs PA for levothyroxine 30 day supply not 90 day supply for bubble wrap. Please call if you have questions. Onset and Duration? na Urgent? Gladys Willingham 01/17/2015 9:08 documented in this encounter Plan of Treatment Upcoming Encounters Date Type Department Care Team (Late st Contact Info) Description 10/01/2024 13:40 EDT Office Visit [facility] - [facility] [address] [place] [address] Wilder Zaidi, DO [address] [facility] [address] [place] [address] documented as of this encounter Visit Diagnoses Not on filedocumented in this encounter Care Teams Machine Operator General Relationship Specialty Start Date End Date Yossi Torres MD [address] [place] [address] [address] [place] [phone] PCP - General 04/17/11 03/14/16 documented as of this encounter
--- OUTSIDE RECORDS SUMMARY | 2024-07-22 13:39 | XMS_ITS | Encounter Summary ---
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[facility]); 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 Zaidi ???I was supervised by Dr. Zaidi who was in the suite and readily available.?? documented in this encounter Plan of Treatment Upcoming Encounters Date Type Department Care Team (Late st Contact Info) Description 10/01/2024 13:40 EDT Office Visit [facility] Endocrinology - [facility] [address] [place] [address] Wilder Zaidi, 62 [facility] [address] [place] [address] documented as of this encounter [...] LAB Hemoglobin 15.4 13.8 - 17.3 gm/dl [facility] HCT 45.4 39.5 - 50.2 % [facility] MCV 80(L) 81 - 95 fl [facility] MCH 27.2(L) 27.6 - 33.0 pg [facility] MCHC 33.9 32.8 - 36.4 gm/dl [facility] PLT 148 141 - 320 K/cmm [facility] RDW-CV 14.5(H) 11.8 - 14.1 % [facility] Blood specimen (specimen) 07/26/2013 12:17 EST 07/26/2013 15:09 EST Wilder Zaidi DO HEMATOLOGY & PF4 ORDER LYNDSEY Final Result Performing Organization Address [facility] Co de Phone Number [facility] [address] [place] [address] * (ABNORMAL) T4 FREE (07/26/2013 12:17 EST) [facility] Free T4 2.3(H) 0.8 - 1.8 ng/dL [facility] Blood specimen (specimen) 07/26/2013 12:17 EST 07/26/2013 15:09 EST Wilder Zaidi DO CHEMISTRY & BLOOD GAS ORDERABLES Final Result Performing Organization Address [facility] de Phone Number [facility] [address] [place] [address] * (ABNORMAL) ELECTROLYTES (07/26/2013 12:17 EST) Pathologist [facility] Sodium 137 136 - 145 mEq/L [facility] Potassium 4.3 3.5 - 5.0 mEq/L [facility] Chloride 94(L) 96 - 110 mEq/L [facility] CO2 32 24 - 32 mEq/L [facility] Blood specimen (specimen) 07/26/2013 12:17 EST 07/26/2013 15:09 EST Wilder Zaidi DO CHEMISTRY & BLOOD GAS ORDERABLES Final Result [facility] [address] [place] [address] documented in this encounter Visit Diagnoses Diagnosis Gonadotropin deficiency (HCC-CMS) 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
--- OUTSIDE RECORDS SUMMARY | 2024-07-22 13:39 | XMS_ITS | Encounter Summary ---
Author Organization [facility] Address [address] [place] [address] Care Team Providers Care Supervisor Model Making Name Role Phone Yossi Torres MD Primary Care Provider [phone] Reason for Visit * Reason Onset Date Comments Update 04/17/2015 Encounter Details Date Type Department Care Team (Late st Contact Info) Description 04/17/2015 Telephone [facility] Endocrinology - [facility] [address] [place] [address] Wilder Zaidi, 62 [facility] [address] [place] [address] Update Social History Tobacco Use [...] Or 0.05mg tid. * Telephone Encounter - eBlgica Chavez - 04/21/2015 1114 EDT Fluid intake [...] Reason for Call: Update Summary/Symptoms: Lali from [facility] looking for pt's sodium levels. Addie Burgess 04/17/2015 11:20 documented in this encounter Plan of Treatment Upcoming Encounters Date Type Department Care Team (Late st Contact Info) Description 10/01/2024 13:40 EDT Office Visit [facility] Endocrinology - [facility] [address] [place] [address] Wilder Zaidi, DO 62 [facility] [address] [place] [address] documented as of this encounter Visit Diagnoses Not on filedocumented in this encounter Care Teams Supervisor Model Making Relationship Specialty Start Date End Date Yosis Torres MD [address] [place] [address] [address] [place] [phone] PCP - General 04/17/11 03/14/16 documented as of this encounter
--- OUTSIDE RECORDS SUMMARY | 2024-07-22 13:39 | XMS_ITS | Encounter Summary ---
Author Organization [facility] Address [address] [place] [address] Care Team Providers Care Ship Self Defense System Mk1 Operator Name Role Phone Yossi Torres MD Primary Care Provider [phone] Reason for Visit * Reason Comments Seizures * Referral (Routine) - Closed Specialty Diagnoses / Procedures Referred By Duyen bui Referred To Contact Neurology Diagnoses Seizure ([facility]) Yossi Torres MD Phone: tel: fax: [facility] Neurology [facility] [address] [place] [address] Phone: tel: fax: Referral ID Status Reason Start Date Expiration Date Visits Re quested Visits Authorized [id number] Closed 1 1 Encounter Details Date Type Department Care Team (Late st Contact Info) Description 12/27/2014 10:30 EDT Office Visit [facility] Neurology [facility] [address] [place], [place] [id number] Dioni Jovel MD [address] [place] [address] Seizure disorder ([facility]) (Primary Dx) Social History Tobacco Use [...] Jovel MD - 12/27/2014 1207 EDT THE NEUROLOGY CONSULTATION - 12/27/2014 HISTORY: The patient is a 24-year-old right-handed gentleman seen at request of Dr Torres for evaluation of seizures. The patient was accompanied by his guardian and supervisor bottle house cleaners. I also reviewed records from [facility]. The patient's past medical history is [...] he was with home provider [facility] he had a spell where he [...] general anesthesia. He is also followed with preparation supervisor freezing for hypoglycemia and panhypopituitarism. He will follow with me in a few months or sooner if problems come. Dioni Jovel MD 11 13 AM - Dioni Jovel MD cn Dictation ID: [id number] documented in this encounter Plan of Treatment Upcoming Encounters Date Type Department Care Team (Late st Contact Info) Description 10/01/2024 13:40 EDT Office Visit [facility] Endocrinology - [place] [address] [place] [address] Wilder Zaidi, [address] [facility] [address] [place] [address] documented as of this encounter Visit Diagnoses Diagnosis Seizure disorder ([facility])- Primary Unspecified epilepsy without mention of intractable epilepsy documented in this encounter Discontinued Medications Medication Sig Discontinue Reason Start Date End Da te ZONISAMIDE ORAL Take 75 mg by mouth at bedtime. 08/24/2010 12/27/2014 documented as of this encounter Care Teams Ship Self Defense System Mk1 Operator Relationship Specialty Start Date End Date Yossi Torres MD [address] [place] [address] [address] [place] [phone] PCP - General 04/17/11 03/14/16 documented as of this encounter
--- OUTSIDE RECORDS SUMMARY | 2024-07-22 13:39 | XMS_ITS | Encounter Summary ---
Author Organization [facility] Address [address] [place] [address] Care Team Providers Care Employee Operations Examiner Name Role Phone Yossi Torres MD Primary Care Provider [phone] Reason for Visit * Reason Onset Date Comments Discuss Test Results 06/20/201506/12 [facility] Encounter Details Date Type Department Care Team (Late st Contact Info) Description 06/20/2015 Telephone [facility] Endocrinology - [facility] [address] [place] [address] Wilder Zaidi DO 62 [facility] [address] [place] [address] Discuss Test Results (06/12 [facility] ) Social History Tobacco Use [...] Chavez - 06/22/2015 0857 EST Spoke to Lail, the nurse at facility where [facility] [...] Call: Discuss Test Results Summary/Symptoms: Lali from [facility] calling for results. States kabs were done 06/12 [facility]. Please call. Jen Sanchez 06/20/2015 15:22 documented in this encounter Plan of Treatment Upcoming Encounters Date Type Department Care Team (Late st Contact Info) Description 10/01/2024 13:40 EDT Office Visit [facility] Endocrinology - [facility] [address] [place] [address] Wilder Zaidi DO 62 [facility] [address] [place] [phone] documented as of this encounter Visit Diagnoses Not on filedocumented in this encounter Care Teams Employee Operations Examiner Relationship Specialty Start Date End Date Yossi Torres MD [address] [place] [address] [address] [place] [phone] PCP - General 04/17/11 03/14/16 documented as of this encounter
--- OUTSIDE RECORDS SUMMARY | 2024-07-22 13:39 | XMS_ITS | Encounter Summary ---
Author Organization [facility] Address [address] [place] [address] Care Team Providers Care Manufacturing Accountant Name Role Phone Yossi Torres MD Primary Care Provider [phone] Reason for Visit * Reason Onset Date Comments Discuss Test Results 10/19/2015 Lab work Encounter Details Date Type Department Care Team (Late st Contact Info) Description 10/19/2015 Telephone [facility] Endocrinology - [facility] [address] [place] [address] Wilder Zaidi DO [address] [facility] [address] [place] [address] Discuss Test Results (Lab work) [...] Encounter - Georgia Rice RN - 10/19/2015 1531 EDT Phone call to Krissy Informed her [...] - 10/19/2015 1141 EDT Phone call to [facility] [place] Faxing results from 10/17/15 Sodium 140 (136-145) * Telephone Encounter - Josefina Rivera - 10/19/2015 1041 EDT Reason for Call: Discuss Test Results Summary/Symptoms: Lali Denise from [facility] [place] wanting the lab results for this patient. Please call back. Spoke with Georgia and results were not in yet. Josefina Rivera 10/19/2015 10:41 documented in this encounter Plan of Treatment Upcoming Encounters Date Type Department Care Team (Late st Contact Info) Description 10/01/2024 13:40 EDT Office Visit [facility] Endocrinology - [facility] [address] [place] [address] Wilder Zaidi DO [address] [facility] [address] [place] [address] documented as of this encounter Visit Diagnoses Not on filedocumented in this encounter Care Teams Manufacturing Accountant Relationship Specialty Start Date End Date Yossi Torres MD [address] [place] [address] [address] [place] [phone] PCP - General 04/17/11 03/14/16 documented as of this encounter
--- OUTSIDE RECORDS SUMMARY | 2024-07-22 13:39 | XMS_ITS | Encounter Summary ---
Author Organization [facility] Address [address] [place] [address] Care Team Providers Care Model Home Sales Greeter Name Role Phone Yossi Torres MD Primary Care Provider [phone] Reason for Visit * Reason Comments Hypothyroidism Pituitary Abnormality Encounter Details Date Type Department Care Team (Latest Contact Info) Description 02/01/2014 10:40 EDT Office Visit [facility] Endocrinology - [facility] [address] [place] [id number] Wilder Zaidi, 62 [facility] [address] [place] [address] Central hypothyroidism (Primary Dx) Social [...] Mood has been stable, according to the customer service assistant. LABORATORY DATA: Obtained on at [facility] on 01/21/2014 showed a sodium normal [...] Info) Description 10/01/2024 13:40 EDT Office Visit [facility] Endocrinology - [place] [address] [place] [address] Wilder Zaidi DO 62 [facility] [address] [place] [address] documented as of this encounter Results * T4 FREE (02/01/2014 10:50 EDT) Free T4 1.4 0.8 - 1.8 ng/dl [facility] Blood specimen (specimen) 02/01/2014 10:50 EDT 02/01/2014 15:54 EDT us Wilder Zaidi DO CHEMISTRY & BLOOD GAS ORDERABLES Final Result [facility] [address] [place] [address] documented in this encounter Visit Diagnoses Diagnosis Central hypothyroidism- Primary Unspecified hypothyroidism documented in this encounter Discontinued Medications Medication Sig Discontinue Reason Start Date End Da te testosterone (ANDROGEL) 1 %(50 mg/5 gram) gel Place 5 g onto the skin daily. Pt needs appt for further refills. 02/01/2013 02/03/2014 documented as of this encounter Care Teams Model Home Sales Greeter Relationship Specialty Start Date End Date Yossi Torres MD [address] [place] [address] [address] [place] [phone] PCP - General 04/17/11 03/14/16 documented as of this encounter
--- OUTSIDE RECORDS SUMMARY | 2024-07-22 13:40 | XMS_ITS | Encounter Summary ---
Author Organization [facility] Address [address] [place] [address] Care Team Providers Care Director Business Name Role Phone Akil Serrano MD Primary Care Provider [phone] Reason for Visit * Reason Onset Date Comments Medications Refill 03/19/2011 Encounter Details Date Type Department Care Team (Late st Contact Info) Description 03/19/2011 Refill [facility] Endocrinology [address] [address] Tejal Carreno RN CDE Medications [...] Description 10/01/2024 13:40 EDT Office Visit [facility] Endocrinology [address] [address] Wilder Zaidi, DO [address] [facility] [address] [place] [address] documented as of this encounter Visit Diagnoses Not on filedocumented in this encounter Care Teams Director Business Relationship Specialty Start Date End Date Akil Serrano MD [address] [place] [address] PCP - General 02/21/10 04/16/11 documented as of this encounter
--- OUTSIDE RECORDS SUMMARY | 2024-07-22 13:40 | XMS_ITS | Encounter Summary ---
Author Organization [facility] Address [address] [place] [address] Care Team Providers Care Net Making Supervisor Name Role Phone Yossi Torres MD Primary Care Provider [phone] Reason for Visit * Reason Onset Date Comments Results 05/09/2011 Encounter Details Date Type Department Care Team (Late st Contact Info) Description 05/09/[address] [facility] Endocrinology - [facility] [address] [place] [address] Wilder Zaidi DO [address] [facility] [address] [place] [address] Results Social History Tobacco Use [...] [facility] Endocrinology - [facility] [address] [place] [address] Wilder Zaidi, DO [address] [facility] [address] [place] [address] documented as of this encounter Visit Diagnoses Not on filedocumented in this encounter Care Teams Net Making Supervisor Relationship Specialty Start Date End Date Yossi Torres MD [address] [place] [address] 2 [place] [phone] PCP - General 04/17/11 03/14/16 documented as of this encounter
--- OUTSIDE RECORDS SUMMARY | 2024-07-22 13:40 | XMS_ITS | Encounter Summary ---
Author Organization [facility] Address [address] [place] [address] Care Team Providers Care Test And Research Reactor Operator Name Role Phone Akil Serrano MD Primary Care Provider [phone] Encounter Details Date Type Department Care Team (Late st Contact Info) Description 05/23/2010 Abstract [facility] Endocrinology - [address] [address] Wilder Zaidi DO [address] [place] [address] [place] [address] Social History Tobacco Use Types Packs/Day [...] Visit [facility] Endocrinology [address] [address] Wilder Zaidi DO [address] [place] [address] documented as of this encounter Visit [...] may reflect changes made after this encounter. Cholecalciferol, Vitamin D3, 400 unit Tab Take [...] mg by mouth 2 times daily. 0 quetiapine (SEROQUEL) 300 mg tablet Take 200 mg by mouth at bedtime. 08/24/2010 4 zonisamide (ZONEGRAN) 25 mg capsule Take 25 [...] 0 added in this encounter Care Teams Test And Research Reactor Operator Relationship Specialty Start Date End Date Akil Serrano MD [address] [place] [address] PCP - General 02/21/10 04/16/11 documented as of this encounter
--- OUTSIDE RECORDS SUMMARY | 2024-07-22 13:40 | XMS_ITS | Encounter Summary ---
Author Organization [facility] Address [address] [place] [address] Care Team Providers Care Automotive Fuel Systems Converter Name Role Phone Akil Serrano MD Primary Care Provider [phone] Encounter Details Date Type Department Care Team (Late st Contact Info) Description 02/21/2010 11:47 EDT - 02/21/2010 23:59 EDT Hospital Encounter [facility] [address] [place] [address] [facility] [address] [place] [phone] Discharge Disposition: Home or Self Care Social [...] Info) Description 10/01/2024 13:40 EDT Office Visit [facility] Endocrinology - [facility] [address] [place] [address] Wilder Zaidi, DO [address] [facility] [address] [place] [phone] documented as of this encounter Visit Diagnoses Not on filedocumented in this encounter Care Teams Automotive Fuel Systems Converter Relationship Specialty Start Date End Date Akil Serrano MD [address] [facility] [address] [place] [address] PCP - General 02/21/10 04/16/11 documented as of this encounter
--- OUTSIDE RECORDS SUMMARY | 2024-07-22 13:40 | XMS_ITS | Encounter Summary ---
Author Organization [facility] Address [address] [place] [address] Care Team Providers Care Apparatus Operator Name Role Phone Akil Serrano MD Primary Care Provider [phone] Reason for Visit * Reason Onset Date Comments Labs Only 07/17/2010 Encounter Details Date Type Department Care Team (Late st Contact Info) Description 07/17/2010 Orders Only [facility] Endocrinology - [facility] [address] [place] [address] Wilder Zaidi DO [address] [facility] [address] [place] [address] 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CMS-HCC) [...] EDT Office Visit [facility] Endocrinology [facility] [address] [place] [address] Wilder Zaidi DO [address] [facility] [address] [place] [address] documented as of this encounter Visit Diagnoses Diagnosis 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HCC-CMS)- Primary Diabetes insipidus documented in this encounter Care Teams Apparatus Operator Relationship Specialty Start Date End Date Akil Serrano MD [address] [facility] [place] [address] PCP - General 02/21/10 04/16/11 documented as of this encounter
--- OUTSIDE RECORDS SUMMARY | 2024-07-22 13:40 | XMS_ITS | Encounter Summary ---
Author Organization [facility] Address [address] [place] [address] Care Team Providers Care Fuel Efficient Aircraft Designer Name Role Phone Yossi Torres MD Primary Care Provider [phone] Reason for Visit * Reason Onset Date Comments Other 01/06/2012 not urinating ye sterday Encounter Details Date Type Department Care Team (Late st Contact Info) Description 01/06/2012 Telephone [facility] Endocrinology - [facility] [address] [place] [address] Wilder Zaidi DO 62 [facility] [address] [place] [address] Other (not urinating yesterday) Social [...] Office Visit [facility] Endocrinology - [address] [phone] Wilder Zaidi DO 62 [facility] [address] [place] [phone] documented as of this encounter Visit Diagnoses Not on filedocumented in this encounter Care Teams Fuel Efficient Aircraft Designer Relationship Specialty Start Date End Date Yossi Torres MD [address] [place] [address] [address] [place] [phone] PCP - General 04/17/11 03/14/16 documented as of this encounter
--- OUTSIDE RECORDS SUMMARY | 2024-07-22 13:40 | XMS_ITS | Encounter Summary ---
Author Organization [facility] Address [address] [place] [address] Care Team Providers Care Copyholder Name Role Phone Yossi Torres MD Primary Care Provider [phone] Reason for Visit * Reason Onset Date Comments Medication Questions 05/15/2012 Encounter Details Date Type Department Care Team (Late st Contact Info) Description 05/15/2012 Telephone [facility] Endocrinology - [facility] [address] [place] [address] Wilder Zaidi DO 62 [facility] [address] [place] [address] Medication Questions Social History Tobacco [...] Description 10/01/2024 13:40 EDT Office Visit [facility] Endocrinology - [facility] [address] [place] [address] Wilder Zaidi, 62 [facility] [address] [place] [address] documented as of this encounter Visit Diagnoses Not on filedocumented in this encounter Care Teams Copyholder Relationship Specialty Start Date End Date Yossi Torres MD [address] [place] [address] [address] [place] [phone] PCP - General 04/17/11 03/14/16 documented as of this encounter
--- OUTSIDE RECORDS SUMMARY | 2024-07-22 13:40 | XMS_ITS | Encounter Summary ---
Author Organization [facility] Address [address] [place] [address] Care Team Providers Care Soft Sugar Supervisor Name Role Phone Yossi Torres MD Primary Care Provider Emilee Cody MD Primary Care Provider + Ren Vaz MD Primary Care Provider [phone] Reason for Visit * Reason Comments Other Encounter Details Date Type Department Care Team (Late st Contact Info) Description 03/03/2013 Refill [facility] Endocrinology - [facility] [address] [place] [address] Wilder Zaidi, 62 [facility] [address] [place] [address] Other Social History Tobacco Use [...] Encounter - Georgia Rice RN - 03/03/2013 1446 EDT Patient last visit 11/04/11. Dr. Zaidi wanted to see him back in 6 months. documented in this encounter Plan of Treatment Upcoming Encounters Date Type Department Care Team (Late st Contact Info) Description 10/01/2024 13:40 EDT Office Visit [facility] Endocrinology - [facility] [address] [place], [place] [phone] Wilder Zaidi, DO 62 [facility] [address] [place] [address] documented as of this encounter Visit Diagnoses Not on filedocumented in this encounter Discontinued Medications Medication Sig Discontinue Reason Start Date End Da te desmopressin (DDAVP) 0.1 mg tablet Take 1 tab PO q AM, 1/2 tab q PM - pt needs appt for further refills. Reorder 02/03/2013 03/03/2013 documented as of this encounter Care Teams Soft Sugar Supervisor Relationship Specialty Start Date End Date Yossi Torres MD [address] [place] [phone] PCP - General 04/17/11 03/14/16 Emilee Cody MD [address] [place] [id number] PCP - General 03/15/16 09/29/18 Ren Vaz MD [address] [place] [address] [place] [address] PCP - General 09/30/18 documented as of this encounter
--- OUTSIDE RECORDS SUMMARY | 2024-07-22 13:40 | XMS_ITS | Encounter Summary ---
Author Organization [facility] Address [address] [place] [address] Care Team Providers Care Mc Kay Stitcher Name Role Phone Akil Serrano MD Primary Care Provider [phone] Yossi Torres MD Primary Care Provider [phone] Emilee Cody MD Primary Care Provider + Ren Vaz MD Primary Care Provider [phone] Reason for Visit * Reason Comments Other Encounter Details Date Type Department Care Team (Late st Contact Info) Description 03/18/2011 Refill [facility] Endocrinology - [facility] [address] [place] [address] Wilder Zaidi 62 [facility] [address] [place] [address] Other Social History Tobacco Use [...] Description 10/01/2024 13:40 EDT Office Visit [facility] Endocrinology - [facility] [address] [place] [address] Wilder Zaidi, 62 [facility] [address] [place] [address] documented as of this encounter Visit Diagnoses Not on filedocumented in this encounter Discontinued Medications Medication Sig Discontinue Reason Start Date End Da te desmopressin (DDAVP) 0.1 mg tabletIndications: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HCC-CMS) Take by mouth. Take one-half tab by mouth twice a day. 06/19/2010 03/19/2011 documented as of this encounter Care Teams Mc Kay Stitcher Relationship Specialty Start Date End Date Akil Serrano MD [address] [facility] [place], [place] [phone] PCP - General 02/21/10 04/16/11 Yossi Torres MD [address] [place] [address] [address] BU[address] [place] [phone] PCP - General 04/17/11 03/14/16 Emilee Cody MD [address] [place] [phone] PCP - General 03/15/16 09/29/18 Ren Vaz MD [facility] [place] [address] PCP - General 09/30/18 documented as of this encounter
--- OUTSIDE RECORDS SUMMARY | 2024-07-22 13:40 | XMS_ITS | Encounter Summary ---
Author Organization [facility] Address [address] [place] [address] Care Team Providers Care Wood Router Name Role Phone Yossi Torres MD Primary Care Provider [phone] Reason for Visit * Reason Onset Date Comments Results 07/23/2011 Encounter Details Date Type Department Care Team (Late st Contact Info) Description 07/23/2011 Telephone [facility] Endocrinology - [facility] [address] [place] [address] Wilder Zaidi DO 62 [facility] [address] [place] [address] Results Social History Tobacco Use [...] Encounter - Wilder Zaidi DO - 07/23/2011 6432 EST Left message with Bettina (patient's sister) regarding most recent sodium level that was normal at 137. Continue current treatment. documented in this encounter Plan of Treatment Upcoming Encounters Date Type Department Care Team (Late st Contact Info) Description 10/01/2024 13:40 EDT Office Visit [facility] Endocrinology - [place] [address] [place] [address] Wilder Zaidi, 62 [facility] [address] [place] [address] documented as of this encounter Visit Diagnoses Not on filedocumented in this encounter Care Teams Wood Router Relationship Specialty Start Date End Date Yossi Torres MD [address] [place] [address] [address] [place] [phone] PCP - General 04/17/11 03/14/16 documented as of this encounter
--- OUTSIDE RECORDS SUMMARY | 2024-07-22 13:40 | XMS_ITS | Encounter Summary ---
Author Organization [facility] Address [address] [place] [address] Care Team Providers Care Hotel Operations Manager Name Role Phone Yossi Torres MD Primary Care Provider [phone] Reason for Visit * Reason Comments Other Encounter Details Date Type Department Care Team (Late st Contact Info) Description 01/12/2013 Refill [facility] Endocrinology [facility] [address] [place], [place] [phone] Wilder Zaidi DO [address] [facility] [address] [place] [address] Other Social History Tobacco Use [...] 13:40 EDT Office Visit [facility] Endocrinology [facility] [address] [place], [place] [phone] Wilder Zaidi, DO [address] [facility] [address] [place] [address] documented as of this encounter Visit Diagnoses Not on filedocumented in this encounter Discontinued Medications Medication Sig Discontinue Reason Start Date End Da te desmopressin (DDAVP) 0.1 mg tablet TAKE ONE TABLET BY MOUTH EVERY MORNING AND 1/2 TABLET AT BEDTIME Reorder 04/16/2012 01/12/2013 documented as of this encounter Care Teams Hotel Operations Manager Relationship Specialty Start Date End Date Yossi Torres MD [address] [place] [address] [address] BU[address] [place] [phone] PCP - General 04/17/11 03/14/16 documented as of this encounter
--- OUTSIDE RECORDS SUMMARY | 2024-07-22 13:40 | XMS_ITS | Encounter Summary ---
Author Organization [facility] Address [address] [place] [address] Care Team Providers Care Senior Security Engineer Name Role Phone Yossi Torres MD Primary Care Provider [phone] Reason for Visit * Reason Onset Date Comments Labs Only 09/13/2012 Encounter Details Date Type Department Care Team (Late st Contact Info) Description 09/13/2012 Telephone [facility] Endocrinology - [address] [place] [address] [address] Ramon Lucero MD [address] [place] [address], [address] [phone] Labs Only Social History Tobacco [...] 60 oz fluid restriction. Investigate with new heel caser regarding inadvertent free water intake. Call lateafternoon [...] Description 10/01/2024 13:40 EDT Office Visit [facility] Endocrinology - [facility] [address] [place] [address] Wilder Zaidi, 62 [facility] [address] [place] [phone] documented as of this encounter Visit Diagnoses Not on filedocumented in this encounter Care Teams Senior Security Engineer Relationship Specialty Start Date End Date Yossi Torres MD [address] [place] [address] [address] [place] [phone] PCP - General 04/17/11 03/14/16 documented as of this encounter
--- OUTSIDE RECORDS SUMMARY | 2024-07-22 13:40 | XMS_ITS | Encounter Summary ---
Author Organization [facility] Address [address] [place] [address] Care Team Providers Care Glass Products Inspector Name Role Phone Yossi Torres MD Primary Care Provider [phone] Encounter Details Date Type Department Care Team (Late st Contact Info) Description 02/01/2013 Orders Only [facility] Endocrinology - [address] [address] Karen Tellez RN Social History Tobacco Use [...] Notes * Georgia Rice RN - 02/04/2013 7930 EDT Called Androgel into his pharmacy. He needs an appointment before further refills per Dr. Zaidi. documented in this encounter Plan of Treatment Upcoming Encounters Date Type Department Care Team (Late st Contact Info) Description 10/01/2024 13:40 EDT Office Visit [facility] Endocrinology - [place] [address] [place] [address] Wilder Zaidi, 62 [facility] [address] [place] [address] documented as of this encounter Visit Diagnoses Not on filedocumented in this encounter Discontinued Medications Medication Sig Discontinue Reason Start Date End Da te ANDROGEL 1 %(50 mg/5 gram) gel ONE PACKET ONCE DAILY TOPICALLY Reorder 06/28/2012 02/01/2013 documented as of this encounter Care Teams Glass Products Inspector Relationship Specialty Start Date End Date Yossi Torres MD [address] [place] [address] [facility] 2 [place] [phone] PCP - General 04/17/11 03/14/16 documented as of this encounter
--- OUTSIDE RECORDS SUMMARY | 2024-07-22 13:40 | XMS_ITS | Encounter Summary ---
Author Organization [facility] Address [address] [place] [address] Care Team Providers Care Priest Name Role Phone Akil Serrano MD Primary Care Provider [phone] Reason for Visit * Reason Onset Date Comments Other 07/09/2010 Patient had sodi um level checked, injection of Desmpressin changed to pill form. Guardian noticed urination frequency down and bright yellow in color Encounter Details Date Type Department Care Team (Late st Contact Info) Description 07/09/2010 Telephone [facility] Endocrinology - [facility] [address] [place] [address] Wilder Zaidi DO 62 [facility] [address] [place] [address] Other (Patient had sodium level [...] Encounter - Wilder Zaidi DO - 07/10/2010 0515 EST Spoke with consumer marketing manager Marta via phone. Patient's guardian Marta and sister attempted to contact office yesterday. Message was not routed to this provider until this am. Patient with complicated medical history including central diabetes insipidus. Switched from SQ to oral DDAVP as a result of national shortage of SQ DDAVP. 4 days after switch consumer marketing manager noticed change in behavior. ER trip last night showed sodium allegedly high. Contacted on-call endocrinologists who increased oral DDAVP to 0.1 mg int he am and 0.5 mg in the evening. Advised family to increased fluid intake to 60 oz per day andto closely monitor urine output. Gave consumer marketing manager PAS number to contact me directly with any questions or concerns. Will check in tomorrow am 07/11/10. May obtain repeat sodium. documented in this encounter Plan of Treatment Upcoming Encounters Date Type Department Care Team (Late st Contact Info) Description 10/01/2024 13:40 EDT Office Visit [facility] Endocrinology - [address] [address] Wilder Zaidi DO 62 [facility] [address] [place] [address] documented as of this encounter Visit Diagnoses Diagnosis 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HCC-CMS)- Primary Diabetes insipidus documented in this encounter Care Teams Priest Relationship Specialty Start Date End Date Akil Serrano MD [address] [facility] [place] [address] PCP - General 02/21/10 04/16/11 documented as of this encounter
--- OUTSIDE RECORDS SUMMARY | 2024-07-22 13:40 | XMS_ITS | Encounter Summary ---
Author Organization [facility] Address [address] [place] [address] Care Team Providers Care Car Stower Name Role Phone Yossi Torres MD Primary Care Provider [phone] Reason for Visit * Reason Onset Date Comments Medications Refill 06/18/2011 Encounter Details Date Type Department Care Team (Late st Contact Info) Description 06/18/2011 Refill [facility] [address] [place] [address] Georgia Rice RN Medications Refill [...] Info) Description 10/01/2024 13:40 EDT Office Visit [facility] [address] [place] [address] Wilder Zaidi DO 62 [facility] [address] [place] [address] documented as of this encounter Visit Diagnoses Not on filedocumented in this encounter Discontinued Medications Medication Sig Discontinue Reason Start Date End Da te testosterone (ANDROGEL) 1 %(50 mg/5 gram) gel Place 5 g onto the skin daily. Reorder 07/27/2010 06/18/2011 documented as of this encounter Care Teams Car Stower Relationship Specialty Start Date End Date Yossi Torres MD [address] [place] [address] [address]O [address] [place] [phone] PCP - General 04/17/11 03/14/16 documented as of this encounter
--- OUTSIDE RECORDS SUMMARY | 2024-07-22 13:40 | XMS_ITS | Encounter Summary ---
Author Organization [facility] Address [address] [place] [address] Care Team Providers Care Pricing Manager Name Role Phone Akil Serrano MD Primary Care Provider [phone] Reason for Visit * Reason Onset Date Comments Results 02/07/2011 Encounter Details Date Type Department Care Team (Late st Contact Info) Description 02/07/2011 Telephone [facility] Endocrinology - [facility] [address] [place] [address] Wilder Zaidi DO 62 [facility] [address] [place] [address] Results Social History Tobacco Use [...] 10/01/2024 13:40 EDT Office Visit [facility] Endocrinology - [place] [address] [facility] [place] [address] Wilder Zaidi, 62 [facility] [address] [place] [address] documented as of this encounter Visit Diagnoses Not on filedocumented in this encounter Care Teams Pricing Manager Relationship Specialty Start Date End Date Akil Serrano MD [address] [facility] [place], [place] [phone] PCP - General 02/21/10 04/16/11 documented as of this encounter
--- OUTSIDE RECORDS SUMMARY | 2024-07-22 13:40 | XMS_ITS | Encounter Summary ---
Author Organization [facility] Address [address] [place] [address] Care Team Providers Care Director Decision Support Name Role Phone Akil Serrano MD Primary Care Provider [phone] Encounter Details Date Type Department Care Team (Late st Contact Info) Description 02/21/2010 Results Only [facility] - [facility] [address] [place], [place] [address] [facility] [address] [place] [phone] Social History Tobacco Use Types Packs/Day Years [...] 10/01/2024 13:40 EDT Office Visit [facility] Endocrinology - [facility] [address] [place] [address] Wilder Zaidi DO 62 [facility] [address] [place] [address] documented as of this [...] mg/dl [facility] Fasting? No ANISHA GARCIA Blood specimen (specimen) 02/21/2010 12:28 EDT 02/21/2010 12:30 EDT Skyler Edwards [facility] CHEMISTRY & BL OOD GAS ORDERABLES Final Result [facility] [address] [place] [address] * (ABNORMAL) TESTOSTERONE (02/21/2010 12:28 EDT) Testosterone, Total <10(L) 241 - 827 ng/dL [facility] Comment:Sample retested, res ult confirmed Blood specimen (specimen) 02/21/2010 12:28 EDT 02/21/2010 12:30 EDT Skyler Edwards [facility] CHEMISTRY & BL OOD GAS ORDERABLES Final Result Performing Organization Address [facility] de Phone Number [facility] [address] [place] [address] * T4 FREE (02/21/2010 12:28 EDT) Free T4 1.3 0.8 - 1.8 ng/dL [facility] Blood specimen (specimen) 02/21/2010 12:28 EDT 02/21/2010 12:30 EDT Skyler Edwards [facility] CHEMISTRY & BL OOD GAS ORDERABLES Final Result Performing Organization Address [facility] de Phone Number [address] [address] documented in this encounter Visit Diagnoses Not on filedocumented in this encounter Care Teams Director Decision Support Relationship Specialty Start Date End Date Akil Serrano MD [address] [facility] [place] [address] PCP - General 02/21/10 04/16/11 documented as of this encounter
--- OUTSIDE RECORDS SUMMARY | 2024-07-22 13:40 | XMS_ITS | Encounter Summary ---
Author Organization [facility] Address [address] [place] [address] Care Team Providers Care Hotel Attendant Name Role Phone Akil Serrano MD Primary Care Provider [phone] Encounter Details Date Type Department Care Team (Late st Contact Info) Description 02/24/2011 22:08 EDT - 02/25/2011 18:38 EDT Hospital Encounter [facility] Neurosurgery Unit [address] [place] [address] Jason Olea MD [address] [facility], [address] [place] [address] Anatoliy Perez MD [address] [place] [phone] 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CMS-HCC) (HCC-CMS) [...] 10 mg by mouth at bedtime. 08/24/2010 acetaminophen (TYLENOL) 325 mg tablet Take 200 mg by mouth every 4 hours as needed for Pain or Fever. Reported on 10/31/2016 02/25/2011 07/06/2024 desmopressin (DDAVP) 0.1 mg tabletIndication s:Primary central [...] Take 200 mg by mouth daily. 04/18/2011 quetiapine (SEROQUEL) 300 mg tablet Take 200 mg by mouth at bedtime. 08/24/2010 07/06/2024 testosterone (ANDROGEL) 1 %(50 mg/5 gram) gel [...] past HH use. They do have a relief worker who assist's Miguel Angel when he [...] Notes * Elsi Guillen MD - 02/24/2011 4575 EDT Neurosurgery Chief Complaint/ History of Present [...] spontaneously and on command. UE strength, 5/5, risk compliance analyst bilaterally Downward toes No clonus Assesment/ Miguel Angel Judy Burgos Jr. is a [...] documented in this encounter Procedure Notes * Air Conditioning Mechanic, Scan - 02/24/2011 0000 EDTAssociated Order(s): ECG REPORT - SCANNED documented in this encounter OR Notes * Anesthesia Procedure Notes - Air Conditioning Mechanic, Scan - 02/24/2011 0000 EDT * Anesthesia Procedure Notes - Air Conditioning Mechanic, Scan - 02/24/2011 0000 EDT documented in [...] (Calculated - sq m): 1.99 sq meters (02/25/11 141), Temp: 36 ??C (96.8 ??F) (02/25/11 1515), Heart Rate: 75 BPM (02/25/11 151), BP: 115/61 mmHg (02/25/11 1515), Resp: 18 (02/25/11 1515), SpO2: 98 % (02/25/11 151),Adult Nonverbal Pain ScaleTotal: 0 Total Vocal: 1 [...] No High Blood Pressure: No History of CO: No Cardiac Functional Limitations:: <4 METS Angina/Palpitations: [...] patient checks Active Multi-Disciplinary problems: FALL RISK [[id number]] (02/25/11) Data: patient lying with eyes closed follows commands verbal response difficult to understand Action: family at bedside bed alarm for safety frequent checks Response: MRI scheduled at 1300 will con tinue to observe. [place] Lawson, HEATHER 02/25/2011 10:37 * Plan of Care - Lali Park RN - 02/25/2011 0306 EDT Problem: FALL RISK Goal: Patient will remain free of falls Data: pt needing assistance with ambulation Action: bed alarm used. Call morris at BS. Caregiver at BS. 3/4 siderails up. Response: pt sleeping comfortably. Continue to monitor Lali Park RN 02/25/2011 3:01 * Scanned Note-Null - Air Conditioning Mechanic, Scan - 02/24/2011 0000 EDT * Scanned Note-Null - Air Conditioning Mechanic, Scan - 02/24/2011 0000 EDT * Scanned Note-Null - Air Conditioning Mechanic, Scan - 02/24/2011 0000 EDT documented in this encounter Plan of Treatment Upcoming Encounters Date Type Department Care Team (Late st Contact Info) Description 10/01/2024 13:40 EDT Office Visit [facility] Endocrinology - [address] [address] Wilder Zaidi, DO [address] [place] [address] [address] [place] [address] documented as of this encounter Procedures Procedure Name Priority Date/Time Associated Diagnosis Comments ECG REPORT - SCANNED 02/28/2011 11:47 EDT documented in this encounter Results * ECG REPORT - SCANNED (02/28/2011 11:47 EDT) 02/28/2011 11:4 7 EDT Narrative Procedure Note Air Conditioning Mechanic, Scan - 02/24/2011 0:00 EDT us Scan Air Conditioning Mechanic PROCEDURE/MINOR SURGICAL HERMES HANNON Final Result documented in this [...] or Fever. Reported on 10/31/2016 02/25/2011 07/06/2024 added in this encounter Active and Recently [...] on 02/24/11 at 2227, Until Fri02/25/11 at 2041, Pain, Fever, Routine Linked Groups Order Group 1: acetaminophen (TYLENOL) tablet 325-650 mgJump to med 325-650 mg, oral, EVERY 4 HOURS PRN, Starting on 02/24/11 at 2227, Until Fri02/25/11 at 204, Pain, Fever, Routine Or acetaminophen (TYLENOL) solution 325-650 mg (CANCELED) 325-650 mg, per ng tube, EVERY 4 HOURS PRN, Starting on 02/24/11 at 2227, Until Fri02/25/11 at 2041, Pain, Fever, Routine Or acetaminophen (TYLENOL) suppository [...] 02/25/2011 documented in this encounter Care Teams Hotel Attendant Relationship Specialty Start Date End Date Akil Serrano MD [address] [facility],[address] [place] [address] PCP - General 02/21/10 04/16/11 documented as of this encounter
--- OUTSIDE RECORDS SUMMARY | 2024-07-22 13:40 | XMS_ITS | Encounter Summary ---
Author Organization [facility] Address [address] [place] [address] Care Team Providers Care Personnel Administrator Name Role Phone Akil Serrano MD Primary Care Provider [phone] Reason for Visit * Reason Onset Date Comments Results 11/26/2010 Sodium 151 up fr om 148 last week on 80 oz daily water (increase from baseline) - I told her to go up to 100 oz daily water and recheck Encounter Details Date Type Department Care Team (Late st Contact Info) Description 11/26/2010 Telephone [facility] Endocrinology - [address] [address] Ramon Lucero MD [address] [place] [address], [address] [phone] Results (Sodium 151 up from [...] Telephone Encounter - Ramon Lucero - 11/26/2010 8271 EDT Sodium 151 up from 148 last week on 80 oz daily water (increase from baseline) - I told her to go up to 100 oz daily water and recheck . documented in this encounter Plan of Treatment Upcoming Encounters Date Type Department Care Team (Late st Contact Info) Description 10/01/2024 13:40 EDT Office Visit [facility] Endocrinology - [facility] [address] [place] [address] Wilder Zaidi, 62 [facility] [address] [place] [address] documented as of this encounter Visit Diagnoses Not on filedocumented in this encounter Care Teams Personnel Administrator Relationship Specialty Start Date End Date Akil Serrano MD [address] [place] [address] PCP - General 02/21/10 04/16/11 documented as of this encounter
--- OUTSIDE RECORDS SUMMARY | 2024-07-22 13:40 | XMS_ITS | Encounter Summary ---
Author Organization [facility] Address [address] [place] [address] Care Team Providers Care Meat Processor Name Role Phone Akil Serrano MD Primary Care Provider [phone] Encounter Details Date Type Department Care Team (Latest Contact Info) Description 03/19/2011 Orders Only [facility] Endocrinology - [address] [address] Tejal Carreno RN CDE Panhypopituitarism [...] Info) Description 10/01/2024 13:40 EDT Office Visit [facility] Endocrinology [facility] [address] [place] [address] Wilder Zaidi, 62 [facility] [address] [place] [address] documented as of this encounter Visit Diagnoses Diagnosis 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HCC-CMS)- Primary Panhypopituitarism documented in this encounter Care Teams Meat Processor Relationship Specialty Start Date End Date Akil Serrano MD [address] [facility] [place] [place] [address] PCP - General 02/21/10 04/16/11 documented as of this encounter
--- OUTSIDE RECORDS SUMMARY | 2024-07-22 13:40 | XMS_ITS | Encounter Summary ---
Author Organization [facility] Address [address] [place] [address] Care Team Providers Care Diversional Therapist'S Assistant Name Role Phone Yossi Torres MD Primary Care Provider [phone] Reason for Visit * Reason Comments Other Encounter Details Date Type Department Care Team (Late st Contact Info) Description 02/02/2013 Refill [facility] Endocrinology - [facility] [address] [place], [place] [phone] Wilder Zaidi, 62 [facility] [address] [place] [address] Other Social History Tobacco Use [...] Visit [facility] Endocrinology - [facility] [address] [place] [address] Wilder Zaidi, DO [address] [facility] [address] [place] [address] documented as of this encounter Visit Diagnoses Not on filedocumented in this encounter Discontinued Medications Medication Sig Discontinue Reason Start Date End Da te desmopressin (DDAVP) 0.1 mg tablet TAKE ONE TABLET BY MOUTH EVERY MORNING AND ONE HALF TABLET AT BEDTIME Reorder 01/12/2013 02/02/2013 documented as of this encounter Care Teams Diversional Therapist'S Assistant Relationship Specialty Start Date End Date Yossi Torres MD [address] [place] [address] [address] [place] [address] PCP - General 04/17/11 03/14/16 documented as of this encounter
--- OUTSIDE RECORDS SUMMARY | 2024-07-22 13:40 | XMS_ITS | Encounter Summary ---
Author Organization [facility] Address [address] [place] [address] Care Team Providers Care Milled Rice Broker Name Role Phone Akil Serrano MD Primary Care Provider Encounter Details Date Type Department Care Team (Late st Contact Info) Description 04/10/2010 Results Only [facility] [phone] Akil Serrano MD [address] [facility],[address] [place], [place] [id number] Social History Tobacco Use Types Packs/Day Years [...] [facility] Endocrinology - [facility] [address] [place], [place] [phone] Wilder Zaidi, 62 [facility] [address] [place] [address] documented as of this encounter Visit Diagnoses Not on filedocumented in this encounter Care Teams Milled Rice Broker Relationship Specialty Start Date End Date Akil Serrano MD [address] [place], [place] [address] PCP - General 02/21/10 04/16/11 documented as of this encounter
--- OUTSIDE RECORDS SUMMARY | 2024-07-22 13:40 | XMS_ITS | Encounter Summary ---
Author Organization [facility] Address [address] [place] [address] Care Team Providers Care Glue Maker Name Role Phone Yan Demarco MD Primary Care Provider [phone] Encounter Details Date Type Department Care Team (Late st Contact Info) Description 10/04/2009 12:00 EDT - 10/04/2009 23:59 EDT Hospital Encounter [facility] [address] [place] [address] [facility] [address] [place] [phone] Discharge Disposition: Home or Self Care Social [...] 10/01/2024 13:40 EDT Office Visit [facility] Endocrinology - [facility] [address] [place], [place] [phone] Wilder Zaidi, DO [address] [facility] [address] [place] [phone] documented as of this encounter Procedures Procedure Name Priority Date/Time Associated Diagnosis Comments T4 FREE Routine 10/04/2009 12:42 EDT SODIUM Routine 10/04/2009 12:42 EDT documented in this encounter Results * SODIUM (10/04/2009 12:42 EDT) Sodium 140 136 - 145 mEq/L [facility] Blood specimen (specimen) 10/04/2009 12:42 EDT 10/04/2009 12:43 EDT Skyler Edwards [facility] CHEMISTRY & BL OOD GAS ORDERABLES Final Result Performing Organization Address City/[facility] Co de Phone Number [facility] [address] [place] [address] * T4 FREE (10/04/2009 12:42 EDT) Free T4 1.4 0.8 - 1.8 ng/dL [facility] Blood specimen (specimen) 10/04/2009 12:42 EDT 10/04/2009 12:43 EDT Skyler Edwards [facility] CHEMISTRY & BL OOD GAS ORDERABLES Final Result Performing Organization Address [facility] Co de Phone Number [facility] [address] [place] [address] documented in this encounter Visit Diagnoses Not on filedocumented in this encounter Care Teams Glue Maker Relationship Specialty Start Date End Date Yan Demarco MD [address] [place] [address] PCP - General 08/22/09 02/20/10 documented as of this encounter
--- OUTSIDE RECORDS SUMMARY | 2024-07-22 13:40 | XMS_ITS | Encounter Summary ---
Author Organization [facility] Address [address] [place] [address] Care Team Providers Care Cafeteria Attendant Name Role Phone Akil Serrano MD Primary Care Provider [phone] Reason for Visit * Reason Onset Date Comments Medication Problem 07/10/2010 REQUESTING CA LL BACK TO DISCUSS PT'S MEDICATION. REQUESTING CALL BACK FROM THE Encounter Details Date Type Department Care Team (Late st Contact Info) Description 07/10/2010 [facility] [address] [address] Wilder Zaidi DO [address] [facility] [address] [place] [address] Medication Problem (REQUESTING CALL BACK [...] Encounter - Wilder Zaidi DO - 07/10/2010 0283 EST Spoke with Bettina Michelle's sister. She [...] slight darkening of his urine. Miguel Angel's security orderly Marta noticed a continued decrease in urination to 3 times per day and dark beer colored urine Sunday 07/09 and Monday 07/10. Patient had sodium level drawn on 07/09/10 at [facility] ER after being told to go [...] Bettina to speak with Marta (Miguel Angel's security orderly) and reduce DDAVP to 0.1 mg tablet one half tab BID and to increase fluid to 60 oz per day. Miguel Angel will have a repeat sodium level in the am Friday07/11/10. I have faxed the orders to [facility]. I advised Bettina to have Miguel Angel taken to ED if hiscondition were to change. 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
--- OUTSIDE RECORDS SUMMARY | 2024-07-22 13:40 | XMS_ITS | Encounter Summary ---
Author Organization [facility] Address [address] [place] [address] Care Team Providers Care Furniture Assembler And Installer Name Role Phone Yossi Torres MD Primary Care Provider [phone] Reason for Visit * Reason Comments Other Encounter Details Date Type Department Care Team (Late st Contact Info) Description 12/25/2011 Refill [facility] Endocrinology - [facility] [address] [place] [address] Wilder Zaidi, 62 [facility] [address] [place] [address] Other Social History Tobacco Use [...] Telephone Encounter - Karen Tellez - 12/25/2011 6340 EDT Testosterone called in to [facility] in [place] documented in this encounter Plan of Treatment Upcoming Encounters Date Type Department Care Team (Late st Contact Info) Description 10/01/2024 13:40 EDT Office Visit [facility] Endocrinology - [facility] [address] [facility] [address] [place], [place] [phone] Wilder Zaidi, DO [address] [facility] [address] [place] [address] documented as of this encounter Visit Diagnoses Not on filedocumented in this encounter Discontinued Medications Medication Sig Discontinue Reason Start Date End Da te testosterone (ANDROGEL) 1 %(50 mg/5 gram) gel Place 5 g onto the skin daily. Reorder 06/18/2011 12/25/2011 documented as of this encounter Care Teams Furniture Assembler And Installer Relationship Specialty Start Date End Date Yossi Torres MD [address] [place] [address] [address] [place] [phone] PCP - General 04/17/11 03/14/16 documented as of this encounter
--- OUTSIDE RECORDS SUMMARY | 2024-07-22 13:40 | XMS_ITS | Encounter Summary ---
Author Organization [facility] Address [address] [place] [address] Care Team Providers Care Supervisor Modern Languages Name Role Phone Yossi Torres MD Primary Care Provider [phone] Reason for Visit * Reason Comments New Patient Visit head MRI Encounter Details Date Type Department Care Team (Latest Contact Info) Description 04/18/2011 12:00 EDT Office Visit [facility] Neurosurgery - [place] [address] [place] [address] Marvin Perez MD [address] [place] [phone] Craniopharyngioma (CMS-HCC) (HCC-CMS) (Primary Dx) Discharge [...] documented in this encounter Progress Notes * Felt Pad Cutter, Scan - 04/19/2011 1045 EDT * Marvin Perez - 04/18/2011 1241 EDT This office note has been dictated. 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 04/18/2011 documented as of this encounter Care Teams Supervisor Modern Languages Relationship Specialty Start Date End Date Yossi Torres MD [address] [place] [address] [address] [place] [phone] PCP - General 04/17/11 03/14/16 documented as of this encounter
--- OUTSIDE RECORDS SUMMARY | 2024-07-22 13:40 | XMS_ITS | Encounter Summary ---
Author Organization [facility] Address [address] [place] [address] Care Team Providers Care Fixture Fabricator Repairer Name Role Phone Yossi Torres MD Primary Care Provider [phone] Reason for Visit * Reason Comments Other Encounter Details Date Type Department Care Team (Late st Contact Info) Description 04/16/2012 Refill [facility] Endocrinology [facility] [address] [place], [place] [id number] Wilder Zaidi, 62 [facility] [address] [place] [address] Other Social History Tobacco Use [...] 10/01/2024 13:40 EDT Office Visit [facility] Endocrinology [facility] [address] [place], [place] [phone] Wilder Zaidi, DO 62 [facility] [address] [place] [address] documented as of this encounter Visit Diagnoses Not on filedocumented in this encounter Discontinued Medications Medication Sig Discontinue Reason Start Date End Da te desmopressin (DDAVP) 0.1 mg tablet Take one tab in the morning and 1/2 tab at bedtime Reorder 05/03/2011 04/16/2012 documented as of this encounter Care Teams Fixture Fabricator Repairer Relationship Specialty Start Date End Date Yossi Torres MD [address] [place] [address] [address] [place] [phone] PCP - General 04/17/11 03/14/16 documented as of this encounter
--- OUTSIDE RECORDS SUMMARY | 2024-07-22 13:40 | XMS_ITS | Encounter Summary ---
Author Organization [facility] Address [address] [place] [address] Care Team Providers Care Power Plant Superintendent Name Role Phone Akil Serrano MD Primary Care Provider [phone] Encounter Details Date Type Department Care Team (Late st Contact Info) Description 07/03/2010 Results Only [facility] [phone] Akil Serrano MD [address] [facility] [place], [place] [address] Social History Tobacco Use Types Packs/Day Years [...] Office Visit [facility] Endocrinology - [facility] [address] [place] [address] Wilder Zaidi, 62 [facility] [address] [place] [address] documented as of this encounter Visit Diagnoses Not on filedocumented in this encounter Care Teams Power Plant Superintendent Relationship Specialty Start Date End Date Akil Serrano MD [address] [place] [address] PCP - General 02/21/10 04/16/11 documented as of this encounter
--- OUTSIDE RECORDS SUMMARY | 2024-07-22 13:40 | XMS_ITS | Encounter Summary ---
Author Organization [facility] Address [address] [place] [address] Care Team Providers Care Evp Global Product Leadership Name Role Phone Akil Serrano MD Primary Care Provider Encounter Details Date Type Department Care Team (Late st Contact Info) Description 12/13/2010 Results Only Imaging [facility] [phone] Yossi Torres MD [address] [place] [address] [address] [place] [address] Social History Tobacco Use Types [...] Visit [facility] Endocrinology - [facility] [address] [place] [address] Wilder Zaidi, 62 [facility] [address] [place] [address] documented as of this encounter Visit Diagnoses Not on filedocumented in this encounter Care Teams Evp Global Product Leadership Relationship Specialty Start Date End Date Akil Serrano MD [address] [place] [address] PCP - General 02/21/10 04/16/11 documented as of this encounter
--- OUTSIDE RECORDS SUMMARY | 2024-07-22 13:40 | XMS_ITS | Encounter Summary ---
Author Organization [facility] Address [address] [place] [address] Care Team Providers Care Video Camera Operator Name Role Phone Yossi Torres MD Primary Care Provider [phone] Reason for Visit * Reason Comments Other Encounter Details Date Type Department Care Team (Late st Contact Info) Description 06/28/2012 Refill [facility] Endocrinology - [facility] [address] [place] [address] Wilder Zaidi, 62 [facility] [address] [place] [address] Other Social History Tobacco Use [...] Telephone Encounter - Karen Tellez - 07/09/2012 2743 EST [facility] documented in this encounter Plan of Treatment Upcoming Encounters Date Type Department Care Team (Late st Contact Info) Description 10/01/2024 13:40 EDT Office Visit [facility] Endocrinology - [facility] [address] [place] [address] Wilder Zaidi, DO 62 [facility] [address] [place] [address] documented as of this encounter Visit Diagnoses Not on filedocumented in this encounter Discontinued Medications Medication Sig Discontinue Reason Start Date End Da te ANDROGEL 1 %(50 mg/5 gram) gel APPLY 5GM (1 PACKET) ONCE DAILY TO SKIN Reorder 12/25/2011 06/28/2012 documented as of this encounter Care Teams Video Camera Operator Relationship Specialty Start Date End Date Yossi Torres MD [address] [place] [address] [address] [place] [phone] PCP - General 04/17/11 03/14/16 documented as of this encounter
--- OUTSIDE RECORDS SUMMARY | 2024-07-22 13:40 | XMS_ITS | Encounter Summary ---
Author Organization [facility] Address [address] [place] [address] Care Team Providers Care Link Assembler Name Role Phone Akil Serrano MD Primary Care Provider [phone] Reason for Visit * Reason Onset Date Comments Results 07/17/2010 Encounter Details Date Type Department Care Team (Late st Contact Info) Description 07/17/2010 Telephone [facility] Endocrinology - [facility] [address] [place] [address] Wilder Zaidi DO [address] [facility] [address] [place] [address] Results Social History Tobacco Use [...] Encounter - Wilder Zaidi DO - 07/17/2010 8343 EST Recent blood work from at [facility] showed sodium normal at 139. Recheck [...] Info) Description 10/01/2024 13:40 EDT Office Visit [facility] Endocrinology - [facility] [address] [place] [address] Wilder Zaidi DO [address] [facility] [address] [place] [address] documented as of this encounter Visit Diagnoses Not on filedocumented in this encounter Care Teams Link Assembler Relationship Specialty Start Date End Date Akil Serrano MD [address] [facility] [address] [place] [address] PCP - General 02/21/10 04/16/11 documented as of this encounter
--- OUTSIDE RECORDS SUMMARY | 2024-07-22 13:40 | XMS_ITS | Encounter Summary ---
Author Organization [facility] Address [address] [place] [address] Care Team Providers Care Immigration Manager Name Role Phone Yossi Torres MD Primary Care Provider [phone] Reason for Visit * Reason Comments Pituitary Abnormality f/u Encounter Details Date Type Department Care Team (Latest Contact Info) Description 05/03/2011 11:20 EDT Office Visit [facility] Endocrinology - [facility] [address] [place] [address] Wilder Zaidi, [address] [facility] [address] [place] [address] 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CMS-HCC) (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 Radha Conteh is here from [facility] as well as both his caretakers. I received a letter from Dr Rondon on 03/26/2011 where he expressed concern that the caregivers had told him that there was some increase in urine volume and behavioral issues, that Miguel Angel's camp director did not contact my office with these [...] and symptoms of hyponatremia today with the camp director, nurse and patient's sister, although the subtle [...] DO - Job ID: SM Doc ID: [id number] Ext Doc ID: [id number] cc: Yossi Torres MD * Wilder Zaidi DO - 05/09/2011 0941 EDT This office note has been dictated. 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
--- OUTSIDE RECORDS SUMMARY | 2024-07-22 13:40 | XMS_ITS | Encounter Summary ---
Author Organization [facility] Address [address] [place] [address] Care Team Providers Care Oven Roaster Name Role Phone Akil Serrano MD Primary Care Provider [phone] Encounter Details Date Type Department Care Team (Latest Contact Info) Description 08/31/2010 10:42 EST - 08/31/2010 23:37 EST Hospital Encounter [facility] Perioperative Services- [facility] [address] [place], [place] [address] Hilton Quick MD [address] [...] 10 mg by mouth at bedtime. 08/24/2010 desmopressin [...] - 08/31/2010 1111 EST 1055-pt admitted to [facility] bed # 3 for sedated MRI-support person [...] Description 10/01/2024 13:40 EDT Office Visit [facility] Endocrinology - [address] [address] Wilder Zaidi, [address] [facility] [address] [place] [address] documented as of this encounter [...] 12/27/2014 added in this encounter Care Teams Oven Roaster Relationship Specialty Start Date End Date Akil Serrano MD [address] [facility] [address] [place] [address] PCP - General 02/21/10 04/16/11 documented as of this encounter
--- OUTSIDE RECORDS SUMMARY | 2024-07-22 13:40 | XMS_ITS | Encounter Summary ---
Author Organization [facility] Address [address] [place] [address] Care Team Providers Care Conversion Developer Name Role Phone Akil Serrano MD Primary Care Provider [phone] Reason for Visit * Reason Onset Date Comments Medication Problem 06/19/2010 Encounter Details Date Type Department Care Team (Late st Contact Info) Description 06/19/2010 Refill [facility] Endocrinology - [facility] [address] [place], [place] [phone] Wilder Zaidi DO 62 [facility] [address] [place] [address] Medication Problem Social History Tobacco [...] Telephone Encounter - Wilder Zaidi, - 06/19/2010 3030 EST Spoke with Gerry nurse Radha this [...] you have been able to find it. 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 Takes .08 ml SQ BID 06/19/2010 documented as of this encounter Care Teams Conversion Developer Relationship Specialty Start Date End Date Akil Serrano MD [address] [facility] [place] [address] PCP - General 02/21/10 04/16/11 documented as of this encounter
--- OUTSIDE RECORDS SUMMARY | 2024-07-22 13:40 | XMS_ITS | Encounter Summary ---
Author Organization [facility] Address [address] [place] [address] Care Team Providers Care Audio Visual Collections Coordinator Name Role Phone Yossi Torres MD Primary Care Provider [phone] Reason for Visit * Reason Onset Date Comments Medications Refill 02/08/2013 Encounter Details Date Type Department Care Team (Late st Contact Info) Description 02/08/2013 Refill [facility] Endocrinology - [facility] [address] [place] [address] Wilder Zaidi, [address] [facility] [address] [place] [address] Medications Refill Social History Tobacco [...] Info) Description 10/01/2024 13:40 EDT Office Visit [facility] Endocrinology - [facility] [address] [place] [address] Wilder Zaidi, [address] [facility] [address] [place] [address] documented as of this encounter Visit Diagnoses Not on filedocumented in this encounter Care Teams Audio Visual Collections Coordinator Relationship Specialty Start Date End Date Yossi Torres MD [address] [place] [address] [address] [place] [phone] PCP - General 04/17/11 03/14/16 documented as of this encounter
--- OUTSIDE RECORDS SUMMARY | 2024-07-22 13:40 | XMS_ITS | Encounter Summary ---
Author Organization [facility] Address [address] [place] [address] Care Team Providers Care Vehicle Trimmer Name Role Phone Yossi Torres MD Primary Care Provider [phone] Reason for Visit * Reason Onset Date Comments Results 12/25/2011 Encounter Details Date Type Department Care Team (Late st Contact Info) Description 12/25/2011 Telephone [facility] Endocrinology - [facility] [address] [place] [address] Wilder Zaidi, [address] [facility] [address] [place] [address] Results Social History Tobacco Use [...] Encounter - Marta Rice RN - 12/25/2011 1656 EDT Phone call to Miguel Angel's home (left message for caregiver to call back) Phone call from Bettina (his guardian)--informed her of Dr. Zaidi's message below. * Telephone Encounter - Wilder Zaidi DO - 12/25/2011 4919 EDT Please contact Miguel Angel's caretakers by phone. Labs from [facility] dated 12/21/11 show normal sodium at 143. Kidney and thyroid function tests were normal. documented in this encounter Plan of Treatment Upcoming Encounters Date Type Department Care Team (Late st Contact Info) Description 10/01/2024 13:40 EDT Office Visit [facility] Endocrinology - [facility] [address] [place] [address] Wilder Zaidi DO [address] [facility] [address] [place] [address] documented as of this encounter Visit Diagnoses Not on filedocumented in this encounter Care Teams Vehicle Trimmer Relationship Specialty Start Date End Date Yossi Torres MD [address] [place] [address] [facility] [address] [place] [phone] PCP - General 04/17/11 03/14/16 documented as of this encounter
--- OUTSIDE RECORDS SUMMARY | 2024-07-22 13:40 | XMS_ITS | Encounter Summary ---
Author Organization [facility] Address [address] [place] [address] Care Team Providers Care Dock Operations Supervisor Name Role Phone Akil Serrano MD Primary Care Provider [phone] Reason for Visit * Reason Onset Date Comments Other 11/21/2010 Encounter Details Date Type Department Care Team (Late Contact Info) Description 11/21/2010 Telephone [facility] Endocrinology - [facility] [address] [place] [address] Wilder Zaidi, [address] [facility] [address] [place] [address] Other Social History Tobacco Use [...] [facility] Endocrinology - [facility] [address] [facility] [place] [phone] Wilder Zaidi, 62 [facility] [address] [place] [address] documented as of this encounter Visit Diagnoses Not on filedocumented in this encounter Care Teams Dock Operations Supervisor Relationship Specialty Start Date End Date Akil Serrano MD [address] [place] [address] PCP - General 02/21/10 04/16/11 documented as of this encounter
--- OUTSIDE RECORDS SUMMARY | 2024-07-22 13:40 | XMS_ITS | Encounter Summary ---
Author Organization [facility] Address [address] [place] [address] Care Team Providers Care Lockstitch Lining Maker Name Role Phone Yossi Torres MD Primary Care Provider [phone] Reason for Visit * Reason Onset Date Comments Abnormal Lab 01/22/2012 Encounter Details Date Type Department Care Team (Late st Contact Info) Description 01/22/2012 Telephone [facility] Endocrinology - [facility] [address] [place] [address] Wilder Zaidi DO 62 [facility] [address] [place] [address] Abnormal Lab Social History Tobacco [...] Office Visit [facility] Endocrinology - [facility] [address] [place], [place] [phone] Wilder Zaidi DO 62 [facility] [address] [place] [address] documented as of this encounter Visit Diagnoses Not on filedocumented in this encounter Care Teams Lockstitch Lining Maker Relationship Specialty Start Date End Date Yossi Torres MD [address] [place] [address] [address] BU[address]O [address] [place] [phone] PCP - General 04/17/11 03/14/16 documented as of this encounter
--- OUTSIDE RECORDS SUMMARY | 2024-07-22 13:40 | XMS_ITS | Encounter Summary ---
Author Organization [facility] Address [address] [place] [address] Care Team Providers Care Human Resource Officer Name Role Phone Yossi Torres MD Primary Care Provider [phone] Reason for Visit * Reason Onset Date Comments Results 04/21/2012 Follow-up 04/21/2012 Encounter Details Date Type Department Care Team (Late st Contact Info) Description 04/21/2012 Telephone [facility] Endocrinology - [facility] [address] [place] [address] Wilder Zaidi, [address] [facility] [address] [place] [address] Results; Follow-up Social History Tobacco [...] phone. I have review laboratory results from [facility] dated 04/20/12. Advise that solidum level was normal at 128. Continue current doses. documented in this encounter Plan of Treatment Upcoming Encounters Date Type Department Care Team (Late st Contact Info) Description 10/01/2024 13:40 EDT Office Visit [facility] Endocrinology - [facility] [address] [place] [address] Wilder Zaidi DO [address] [facility] [address] [place] [address] documented as of this encounter Visit Diagnoses Not on filedocumented in this encounter Care Teams Human Resource Officer Relationship Specialty Start Date End Date Yossi Torres MD [address] [place] [address] [address] [place] [phone] PCP - General 04/17/11 03/14/16 documented as of this encounter
--- OUTSIDE RECORDS SUMMARY | 2024-07-22 13:40 | XMS_ITS | Encounter Summary ---
Author Organization [facility] Address [address] [place] [address] Care Team Providers Care Rand Butter Name Role Phone Akil Serrano MD Primary Care Provider [phone] Reason for Visit * Reason Comments Hypogonadism Encounter Details Date Type Department Care Team (Latest Contact Info) Description 06/14/2010 13:00 EST Office Visit [facility] Endocrinology - [facility] [address] [place] [phone] Wilder Zaidi, DO [address] [facility] [address] [place] [address] 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HCC-CMS) (Primary Dx) Social [...] Miguel Angel Burgos, in consultation in the [facility] adult endocrinology clinic today 06/14/2010 for further evaluation and management 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 I had the pleasure of meeting Mr. Burgos and his sister as well as his caretakers from the [facility] at the pediatric endocrine transition clinic with Dr. Edwards, on 02/21/2010. Please see that note for full details. Dr. Edwards did have a follow-up visit on 02/28/2010 with Miguel Angel's caregivers, as well as Bettina and his nurse from the [facility], Radha Conteh. Today both his caretakers and [...] is applied oncea day by his male developer architect using gloves. They use of pump at [...] He currently lives with his caretakers in [place], [place], and has the services as described [...] compounded DDAVP delivered from our pharmacy at [facility]. Will speak briefly with Dr. [...] being.We will consider further therapy once his developer architect has been established. Plan: 1. Will address [...] - DSP Job ID: SM Doc ID: [id number] Ext Doc ID: [id number] cc: MD Akil Marsh MD Paul James Zimakas, MD documented in this encounter Plan of Treatment Upcoming Encounters Date Type Department Care Team (Late st Contact Info) Description 10/01/2024 13:40 EDT Office Visit [facility] Endocrinology - [facility] [address] [place], [place] [phone] Wilder Zaidi DO [address] [facility] [address] [place] [address] documented as of this encounter Visit Diagnoses Diagnosis 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[facility] Primary Panhypopituitarism documented in this encounter Care Teams Rand Butter Relationship Specialty Start Date End Date Akil Serrano MD [address] [facility] [place] [address] PCP - General 02/21/10 04/16/11 documented as of this encounter
--- OUTSIDE RECORDS SUMMARY | 2024-07-22 13:40 | XMS_ITS | Encounter Summary ---
Author Organization [facility] Address [address] [place] [address] Care Team Providers Care Oven Operator Automatic Name Role Phone Yossi Torres MD Primary Care Provider [phone] Emilee Cody MD Primary Care Provider + Reason for Visit * Reason Onset Date Comments Results 10/08/2012 Encounter Details Date Type Department Care Team (Late st Contact Info) Description 10/08/2012 Telephone [facility] Endocrinology - [facility] [address] [place] [address] Wilder Zaidi DO 62 [facility] [address] [place] [address] Results Social History Tobacco Use [...] Encounter - Georgia Rice RN - 10/08/2012 8016 EDT Phone call to Bettina (pt's sister) [...] Info) Description 10/01/2024 13:40 EDT Office Visit [facility] Endocrinology - [facility] [address] [place] [address] Wilder Zaidi DO 62 [facility] [address] [place] [address] documented as of this encounter Visit Diagnoses Not on filedocumented in this encounter Care Teams Oven Operator Automatic Relationship Specialty Start Date End Date Yossi Torres MD [address] [place] [phone] PCP - General 04/17/11 03/14/16 Emilee Cody MD [address] [place] [phone] PCP - General 03/15/16 09/29/18 documented as of this encounter
--- OUTSIDE RECORDS SUMMARY | 2024-07-22 13:40 | XMS_ITS | Encounter Summary ---
Author Organization [facility] Address [address] [place] [address] Care Team Providers Care Porcelain Mixer Name Role Phone Yossi Torres MD Primary Care Provider [phone] Reason for Visit * Reason Onset Date Comments Results 09/18/2011 Encounter Details Date Type Department Care Team (Late st Contact Info) Description 09/18/2011 Telephone [facility] Endocrinology - [facility] [address] [place] [address] Wilder Zaidi, [address] [facility] [address] [place] [address] Results Social History Tobacco Use [...] Office Visit [facility] Endocrinology - [address] [phone] Wilder Zaidi DO 62 [facility] [address] [place] [phone] documented as of this encounter Visit Diagnoses Not on filedocumented in this encounter Care Teams Porcelain Mixer Relationship Specialty Start Date End Date Yossi Torres MD [address] [place] [address] [address] [place] [phone] PCP - General 04/17/11 03/14/16 documented as of this encounter
--- OUTSIDE RECORDS SUMMARY | 2024-07-22 13:40 | XMS_ITS | Encounter Summary ---
Author Organization [facility] Address [address] [place] [address] Care Team Providers Care Real Estate Legal Secretary Name Role Phone Yossi Torres MD Primary Care Provider [phone] Reason for Visit * Reason Onset Date Comments Other 06/23/2012 sodium 134 Encounter Details Date Type Department Care Team (Late st Contact Info) Description 06/23/2012 Telephone [facility] Endocrinology - [facility] [address] [place] [address] Wilder Zaidi DO [address] [facility] [address] [place] [address] Other (sodium 134) Social History [...] Info) Description 10/01/2024 13:40 EDT Office Visit [facility] Endocrinology - [facility] [address] [place], [place] [phone] Wilder Zaidi DO 62 [facility] [address] [place] [phone] documented as of this encounter Visit Diagnoses Not on filedocumented in this encounter Care Teams Real Estate Legal Secretary Relationship Specialty Start Date End Date Yossi Torres MD [address] [place] [address] [address] [place] [phone] PCP - General 04/17/11 03/14/16 documented as of this encounter
--- OUTSIDE RECORDS SUMMARY | 2024-07-22 13:40 | XMS_ITS | Encounter Summary ---
Author Organization [facility] Address [address] [place] [address] Care Team Providers Care Mechanical Manufacturing Engineer Name Role Phone Akil Serrano MD Primary Care Provider [phone] Reason for Visit * Reason Onset Date Comments Results 11/30/2010 his sodium was 1 40 (down from 151 the week before) from 100 oz water for several dys (4 days?) I am having them go back to 60 oz today and recheck Friday Encounter Details Date Type Department Care Team (Late st Contact Info) Description 11/30/2010 Telephone [facility] Endocrinology - [address] [address] Ramon Lucero MD [facility] [address] [place] [address] Results (his sodium was 140 [...] Telephone Encounter - Ramon Lucero - 11/30/2010 3342 EDT Sodium came down to 140 on 100 oz of water daily. I spoke with his sister Bettina and told her to godown to 80 oz on , 11/29. Then today, 11/30 I got nervous and asked the medical care evaluation specialist to go downto 60 oz again and recheck Friday. She understands. He's behaving normally and stools are more formed (had some loose stools). documented in this encounter Plan of Treatment Upcoming Encounters Date Type Department Care Team (Late st Contact Info) Description 10/01/2024 13:40 EDT Office Visit [facility] Endocrinology - [facility] [address] [place], [place] [phone] Wilder Zaidi, 62 [facility] [address] [place] [phone] documented as of this encounter Visit Diagnoses Not on filedocumented in this encounter Care Teams Mechanical Manufacturing Engineer Relationship Specialty Start Date End Date Akil Serrano MD [address] [facility] [address] [place] [address] PCP - General 02/21/10 04/16/11 documented as of this encounter
--- OUTSIDE RECORDS SUMMARY | 2024-07-22 13:40 | XMS_ITS | Encounter Summary ---
Author Organization [facility] Address [address] [place] [address] Care Team Providers Care Strip Tank Tender Name Role Phone Yossi Torres MD Primary Care Provider [phone] Reason for Visit * Reason Onset Date Comments Results 06/01/2011 Results 06/03/2011 Encounter Details Date Type Department Care Team (Late st Contact Info) Description 06/01/2011 Telephone [facility] Endocrinology - [facility] [address] [place] [address] Wilder Zaidi DO 62 [facility] [address] [place] [address] Results; Results Social History Tobacco [...] Info) Description 10/01/2024 13:40 EDT Office Visit [facility] Endocrinology - [facility] [address] [place], [place] [phone] Wilder Zaidi DO [address] [facility] [address] [place] [address] documented as of this encounter Visit Diagnoses Not on filedocumented in this encounter Care Teams Strip Tank Tender Relationship Specialty Start Date End Date Yossi Torres MD [address] [place] [address] [address] BU[address]O [address] [place] [phone] PCP - General 04/17/11 03/14/16 documented as of this encounter
--- OUTSIDE RECORDS SUMMARY | 2024-07-22 13:40 | XMS_ITS | Encounter Summary ---
Author Organization [facility] Address [address] [place] [address] Care Team Providers Care Coring Machine Operator Name Role Phone Akil Serrano MD Primary Care Provider [phone] Reason for Visit * Reason Onset Date Comments Diabetes 07/13/[address] Trena aZidi know [facility] patient's sodium level checked today at [facility], at 139. Encounter Details Date Type Department Care Team (Late st Contact Info) Description 07/13/2010 Telephone [facility] Endocrinology - [facility] [address] [place] [address] Wilder Zaidi, [address] [facility] [address] [place] [address] Diabetes (Called to let Dr. Zaidi know sweetie patient's sodium level checked today at [facility], at 139. ) Social History Tobacco [...] Info) Description 10/01/2024 13:40 EDT Office Visit [facility] Endocrinology - [facility] [address] [place] [address] Wilder Zaidi, [address] [facility] [address] [place] [address] documented as of this encounter Visit Diagnoses Not on filedocumented in this encounter Care Teams Coring Machine Operator Relationship Specialty Start Date End Date Akil Serrano MD [address] [place] [address] PCP - General 02/21/10 04/16/11 documented as of this encounter
--- OUTSIDE RECORDS SUMMARY | 2024-07-22 13:40 | XMS_ITS | Encounter Summary ---
Author Organization [facility] Address [address] [place] [address] Care Team Providers Care Account Solutions Analyst Name Role Phone Akil Serrano MD Primary Care Provider [phone] Reason for Visit * Reason Onset Date Comments Medications Refill 06/12/2010 Encounter Details Date Type Department Care Team (Late st Contact Info) Description 06/12/2010 Refill [facility] Pediatric [facility]inology - [facility] [address] [place], [place] [id number] [facility] [address] [place] [address] Medications Refill Social History Tobacco [...] 06/13/2010 0913 EST Spoke to Radha at [facility]. Miguel Angel has enough DDAVP until next week and sees Dr. Zaidi, adult endo, 06/14/10. Advised her that Dr. Zaidi's office will prescribe medication for the future; he just needs to know what pharmacy to use. * Telephone Encounter - [place] [facility] - 06/12/2010 1600 EST Radha is calling from [facility] (her EXT is [phone]). Pt's medication can [...] Office Visit [facility] Endocrinology - [facility] [address] [place] [address] Wilder Zaidi, DO [address] [facility] [address] [place] [address] documented as of this encounter Visit Diagnoses Not on filedocumented in this encounter Care Teams Account Solutions Analyst Relationship Specialty Start Date End Date Akil Serrano MD [address] [place] [address] PCP - General 02/21/10 04/16/11 documented as of this encounter
--- OUTSIDE RECORDS SUMMARY | 2024-07-22 13:40 | XMS_ITS | Encounter Summary ---
Author Organization [facility] Address [address] [place] [address] Care Team Providers Care Director Enterprise Sales Name Role Phone Akil Serrano MD Primary Care Provider [phone] Reason for Visit * Reason Onset Date Comments Medication Management 06/20/2010 Bettina hankins ld like call back regarding medication change. Encounter Details Date Type Department Care Team (Late Contact Info) Description 06/20/2010 Telephone [facility] Endocrinology - [facility] [address] [place] [address] Wilder Zaidi DO [address] [facility] [address] [place] [address] Medication Management (Bettina would like [...] Info) Description 10/01/2024 13:40 EDT Office Visit [facility] Endocrinology - [place] [address] [facility] [address] [place], [place] [id number] Wilder Zaidi, [address] [facility] [address] [place] [address] documented as of this encounter Visit Diagnoses Not on filedocumented in this encounter Care Teams Director Enterprise Sales Relationship Specialty Start Date End Date Akil Serrano MD [address] [place] [address] PCP - General 02/21/10 04/16/11 documented as of this encounter
--- OUTSIDE RECORDS SUMMARY | 2024-07-22 13:40 | XMS_ITS | Encounter Summary ---
Author Organization [facility] Address [address] [place] [address] Care Team Providers Care Cell Tuber Hand Name Role Phone Yossi Torres MD Primary Care Provider [phone] Reason for Visit * Reason Comments Follow-up Panhypopituitarism,d iabetes insipidus,hypogonadism Encounter Details Date Type Department Care Team (Latest Contact Info) Description 11/04/2011 13:40 EDT Office Visit [facility] Endocrinology - [facility] [address] [place] [address] Wilder Zaidi, [address] [facility] [address] [place] [address] 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HCC-CMS) (Primary Dx) Social [...] today by his sister Bettina and his sql database administrator from [facility] as well as both of his [...] nonverbal but seems appropriate, according to his emt dispatcher and sister. He was able to sit [...] caretakers. He is accompanied today by his emt dispatcher from [facility] as well as his sister Bettina. [...] and symptoms of hyponatremia today with the emt dispatcher and patient's sister, although the subtle signs [...] Info) Description 10/01/2024 13:40 EDT Office Visit [facility] Endocrinology - [facility] [address] [place], [place] [id number] Wilder Zaidi DO [address] [facility] [address] [place] [address] documented as of this encounter Visit Diagnoses Diagnosis 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[facility])- Primary Panhypopituitarism documented in this encounter Care Teams Cell Tuber Hand Relationship Specialty Start Date End Date Yossi Torres MD [address] [place] [address] [address] [place] [phone] PCP - General 04/17/11 03/14/16 documented as of this encounter
--- OUTSIDE RECORDS SUMMARY | 2024-07-22 13:40 | XMS_ITS | Encounter Summary ---
Author Organization [facility] Address [address] [place] [address] Care Team Providers Care Volunteer Services Manager Name Role Phone Akil Serrano MD Primary Care Provider [phone] Reason for Visit * Reason Onset Date Comments Appointment Related 04/12/2011 Encounter Details Date Type Department Care Team (Late st Contact Info) Description 04/12/2011 Telephone [facility] Endocrinology - [facility] [address] [place] [address] Wilder Zaidi DO [address] [facility] [address] [place] [address] Appointment Related Social History Tobacco [...] Office Visit [facility] Endocrinology - [facility] [address] [place], [place] [id number] Wilder Zaidi DO [address] [facility] [address] [place] [phone] documented as of this encounter Visit Diagnoses Not on filedocumented in this encounter Care Teams Volunteer Services Manager Relationship Specialty Start Date End Date Akil Serrano MD [address] [facility] [address] [place] [address] PCP - General 02/21/10 04/16/11 documented as of this encounter
--- OUTSIDE RECORDS SUMMARY | 2024-07-22 13:40 | XMS_ITS | Encounter Summary ---
Author Organization [facility] Address [address] [place] [address] Care Team Providers Care Institution Director Name Role Phone Akil Serrano MD Primary Care Provider [phone] Encounter Details Date Type Department Care Team (Late st Contact Info) Description 01/25/2011 Results Only Imaging [facility]- [facility] [phone] Yossi Torres MD [address] [place] [address] [address] [place] [address] Social History Tobacco Use Types [...] Info) Description 10/01/2024 13:40 EDT Office Visit [facility] Endocrinology - [facility] [address] [place] [address] Wilder Zaidi, [address] [facility] [address] [place] [address] documented as of this encounter [...] on filedocumented in this encounter Care Teams Institution Director Relationship Specialty Start Date End Date Akil Serrano MD [address] [facility] [place] [address] PCP - General 02/21/10 04/16/11 documented as of this encounter
--- OUTSIDE RECORDS SUMMARY | 2024-07-22 13:40 | XMS_ITS | Encounter Summary ---
Author Organization [facility] Address [address] [place] [address] Care Team Providers Care Scraper Hand Name Role Phone Akil Serrano MD Primary Care Provider [phone] Reason for Visit * Reason Onset Date Comments Medications Refill 07/26/2010 PATIENT OUT O F MED Encounter Details Date Type Department Care Team (Late st Contact Info) Description 07/26/[address] [address] Wilder Zaidi, [address] [facility] [address] [place] [address] Medications Refill (PATIENT OUT OF [...] Info) Description 10/01/2024 13:40 EDT Office Visit [facility] Endocrinology [address] [place], [place] [phone] Wilder Zaidi, [address] [facility] [address] [place] [address] documented as of this encounter Visit Diagnoses Not on filedocumented in this encounter Discontinued Medications Medication Sig Discontinue Reason Start Date End Da te testosterone (ANDROGEL) 1 % (25 mg/2.5 g) GlPk Apply topically daily. 07/27/2010 documented as of this encounter Care Teams Scraper Hand Relationship Specialty Start Date End Date Akil Serrano MD [address] [facility] [address] [place] [address] PCP - General 02/21/10 04/16/11 documented as of this encounter
--- OUTSIDE RECORDS SUMMARY | 2024-07-22 13:41 | XMS_ITS | Encounter Summary ---
Author Organization [facility] Address [address] [place] [address] Care Team Providers Care Manager Safe Name Role Phone Corin Skinner MD Primary Care Provider Encounter Details Date Type Department Care Team (Late st Contact Info) Description 10/21/2008 17:35 EDT - 11/04/2008 11:59 EDT Hospital Encounter [facility] [address] [place] [address] Christopher Ga MD [address] [place] [address] Jacqueline Early MD [id number] [id number] Slava Pineda MD Discharge Disposition: [...] OF PRESENT ILLNESS Miguel Angel is an 89-s[age]fbip with a complex past medical history, including [...] parentsin the afternoon. He was taken to , where he was noted to be minimally arousable and his serum sodium was 120. A temperature at that time was 30.8 degrees Celsius and a serum glucose was 64. He was given 1 amp of D50 and stress dose hydrocortisone and then was [facility] for further management. He was admitted to [...] low serum sodium was 120 recorded at [facility] and his high serum sodium was 161. At the time of transfer to the regularinpatient unit, his serum electrolytes had stabilized. His most recent full set of electrolytes were , potassium 3.3, chloride 109 and CO2 30. [...] of Unasyn. A blood culture done at [facility] prior to admission was negative. Neurologic: [...] He received stress dose steroids, beginning at [facility]. This stress dose was weaned to [...] his TSH deficiency. Psychosocial: Upon admission to [facility], Bettina parents were unavailable for consultation either [...] Bejarano MD P - SS Job ID: [id number] Document ID: [id number] cc: MD Cy Walker MD Matthew Giefer, [...] an 18-year-old male who was admitted to [facility] October 21, 2008. Miguel Angel has a [...] months since theyreturned from a hospitalization in [place] [employer] which was in February of 2008. She states that his fluid totals and his medications have been adjusted and that in her opinion some of these adjustments have resulted in Robininstability. She states that she is well aware of his medication regimen and that Miguel Angel gets all of his medications as prescribed. Isabel ([facility]) states that for several days prior to [...] Miguel Angel Burgos , took him to where he was then transferred to [facility]. MOC states that they took him to the emergency room in [facility] but then did not go with Miguel Angel to [place]. She stated that somebody spoke with folks in the PICU in [place] but neither she nor her have been down to see Miguel Angel since he was admitted on October 21, 2008. She states that thefamily vehicle is under repair and they have no transportation to the hospital. [facility] states that currently Miguel Angel is getting services in the home. She states that he gets 55 hours per week of personal care assistance. He has a assistant executive housekeeper from 3 p.m. until 3 a.m. Friday through and then on Fridays his assistant executive housekeeper is there from 3 p.m. until 10 p.m. MO states that he attends school Friday through Friday and gets home at 3 p.m. MO states that they also get respite which is an in-home visitor usually on the weekends. She states that currentlythey have used their budget up for the year. There also had been some VNA services. It is not clearwhether she is still getting VNA services. [facility] states that she and Bettina father are [...] not feel that they miss medication doses. [facility] states that Miguel Angel is able to [...] hurting himself and does this on purpose. [facility] states that she and Bettina father have no desire to place Miguel Angel in a residential facility at this time. They feel that they are doing an adequate job with him at home. They feel that the servicesthat he is getting are helpful. RAHEL states that she does not like [facility]. She states that in the past, they have mismanaged Miguel Angel and because of that she does not like coming here and associating with the doctors here. She states that, if they could, they would prefer to have him in [employer] but that they have not been able to move there and transportation is not practical. RAHLE was asked about all of the bruises [...] states that she gets some help through [facility]. She also states that she gets some help through the [facility] organization but she was not sure which one. REVIEW OF SYSTEMS Behavioral review of systems: [facility] states that Miguel Angel tends to stay [...] of twisting his nipples to induce pain. [facility] also states that there are occasions when he will eat his own feces. Medical review of systems: Prior to this admission, [facility] states that he was doing some screeching and just behaviorally seemed to be a little out of sorts. There was decreased activity for several days prior to admission which she attributed to his testosterone shot. There was no history of fever orof any other respiratory symptoms. All other review of systems was negative. PAST MEDICAL HISTORY [facility] states that Miguel Angel was relatively well [...] to the Adult Protective Services and the financial rep on the case is Sukhi Young. DEVELOPMENTAL HISTORY 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 She denies any prior history with [facility]. There is no history of psychiatric problems. Isabel reports that the father of Miguel Angel is Miguel Angel Burgos Sr. She states that he works on the [employer] which is within walking distance of their house. His date of is [birth year] 1966. She states that he didhave some prior involvement with [facility] regarding custody issues of an older daughter of his. Isabel reports that the biological mother of Miguel Angel was Jeannette Burgos. She when Miguel Angel was in [facility] about three years ago. She of [...] Review of the photographs taken by the [facility] nurse on admission show the following: There [...] Miguel Angel since he as admitted to [facility] and have made minimal attempts to contact health care personnel at [facility]. This is the third admission for Miguel Angel since he was discharged from [facility] 2007. RECOMMENDATIONS 1. Physical exam was completed today. 2. I have spoken with the Adult Protective Services financial rep, Sukhi Young, regarding the injuries noted on [...] can be put in place to assure [place] safety. 5. The nature of his bruises [...] Romo MD P - SADE Job ID: [id number] Document ID: [id number] cc: MD Corin Curry MD Daniel W Larrow, MD Karyn Patno, MD * Adult Protective Services, Sukhi Young documented in this encounter Plan of Treatment Upcoming Encounters Date Type Department Care Team (Late st Contact Info) Description 10/01/2024 13:40 EDT Office Visit [facility] [place] [address] [place] [address] Wilder Zaidi, DO [address] [place] [address] Pending Results Name Type Priority [...] LAB 11/04/2008 7:00 EDT 11/04/2008 7:21 EDT us Christopher Ga MD CHEMISTRY & BLOOD GAS ORDER LYNDSEY Final Result Performing Organization Address [facility] Co de Phone Number [facility] [address] [place] [address] * SODIUM (11/04/2008 7:00 EDT) Sodium Duplicate Test Request 136 - 145 mEq/L [facility] Blood specimen (specimen) 11/04/2008 7:00 EDT 11/04/2008 7:21 EDT us Christopher Ga MD CHEMISTRY & BLOOD GAS ORDER LYNDSEY Final Result Performing Organization Address [facility] de Phone Number [facility] [address] [place] [address] * (ABNORMAL) GLUCOSE, SERUM (11/04/2008 6:50 EDT) Glucose, Serum 67(L) 70 - 100 mg/dl [facility] Comment:Heparinized plasma. Blood specimen (specimen) 11/04/2008 6:50 EDT 11/04/2008 7:20 EDT us Christopher Ga MD CHEMISTRY & BLOOD GAS ORDER LYNDSEY Final Result Performing Organization Address [facility] de Phone Number [facility] [address] [place] [address] * ELECTROLYTES (11/04/2008 6:50 EDT) Sodium 140 136 - 145 [...] Final Result Performing Organization Address [facility] de Phone Number [facility] [address] [place] [address] * CREATININE (11/04/2008 6:50 EDT) Creatinine 0.70 0.7 - 1.5 mg/dl [facility] Comment:Heparinized plasma. GFR, Calculated >60 ml/min/1.7 3m2 [facility] Comment:Heparinized plasma. Blood specimen (specimen) 11/04/2008 6:50 EDT 11/04/2008 7:20 EDT us Christopher Ga MD CHEMISTRY & BLOOD GAS ORDER LYNDSEY Final Result Performing Organization Address [facility] de Phone Number [facility] [address] [place] [address] * BUN (11/04/2008 6:50 EDT) Pathologist [facility] BUN 15 10 - 26 mg/dl [facility] Comment:Heparinized plasma. Blood specimen (specimen) 11/04/2008 6:50 EDT 11/04/2008 7:20 EDT us Christopher Ga MD CHEMISTRY & BLOOD GAS ORDER LYNDSEY Final Result Performing Organization Address [facility] de Phone Number [facility] [address] [place] [address] * ELECTROLYTES (11/03/2008 19:00 EDT) Sodium 140 136 - 145 mEq/L [facility] Potassium 4.3 3.5 - 5.0 mEq/L [facility] Chloride 106 96 - 110 mEq/L [facility] CO2 27 24 - 32 mEq/L [facility] Blood specimen (specimen) 11/03/2008 19:00 EDT 11/03/2008 19:24 EDT us Christopher Ga MD CHEMISTRY & BLOOD GAS ORDER LYNDSEY Final Result Performing Organization Address [facility] Co de Phone Number [facility] [address] [place] [address] * CREATININE (11/03/2008 19:00 EDT) Pathologist [facility] Creatinine 0.70 0.7 - 1.5 mg/dl [facility] GFR, Calculated >60 ml/min/1.7 3m2 [facility] Blood specimen (specimen) 11/03/2008 19:00 EDT 11/03/2008 19:24 EDT us Christopher Ga MD CHEMISTRY & BLOOD GAS ORDER LYNDSEY Final Result Performing Organization Address [facility] de Phone Number [facility] [address] [place] [address] * BUN (11/03/2008 19:00 EDT) Pathologist [facility] BUN 15 10 - 26 mg/dl [facility] Blood specimen (specimen) 11/03/2008 19:00 EDT 11/03/2008 19:24 EDT us Christopher Ga MD CHEMISTRY & BLOOD GAS ORDER LYNDSEY Final Result Performing Organization Address [facility] Phone [facility] [address] [place] [address] * OSMOLALITY (11/03/2008 14:00 EDT) Pathologist [facility] Osmolality Cintia 300 280 - 300 MOS/KG [facility] Blood specimen (specimen) 11/03/2008 14:00 EDT 11/03/2008 14:36 EDT us Christopher Ga MD CHEMISTRY & BLOOD GAS ORDER LYNDSEY Final Result Performing Organization Address [facility] de Phone Number [facility] [address] [place] [address] * SODIUM (11/03/2008 14:00 EDT) Pathologist [facility] Sodium 143 136 - 145 mEq/L [facility] Blood specimen (specimen) 11/03/2008 14:00 EDT 11/03/2008 14:36 EDT us Christopher Ga MD CHEMISTRY & BLOOD GAS ORDER LYNDSEY Final Result Performing Organization Address [facility] Co de Phone Number [facility] [address] [place] [address] * SODIUM, URINE RANDOM (11/03/2008 13:30 EDT) Sodium, Ur Sample quantity insufficient for testing. mEq/L [facility] Urine specimen (specimen) 11/03/2008 13:30 EDT 11/03/2008 15:04 EDT us Christopher Ga MD URINALYSIS ORDERABLES Final Result Performing Organization Address [facility] Phone Number [facility] [address] [place] [address] * OSMOLALITY,URINE (11/03/2008 13:30 EDT) Osmolality, Ur Sample quantity insufficient for testing. 392 - 1090 MOS/KG [facility] Urine specimen (specimen) 11/03/2008 13:30 EDT 11/03/2008 15:04 EDT us Christopher Ga MD URINALYSIS ORDERABLES Final Result Performing Organization Address [facility] Phone Number [facility] [address] [place] [address] * (ABNORMAL) GLUCOSE, SERUM (11/03/2008 6:20 EDT) Glucose, Serum 69(L) 70 - 100 mg/dl [facility] Blood specimen (specimen) 11/03/2008 6:20 EDT 11/03/2008 6:27 EDT us Christopher Ga MD CHEMISTRY & BLOOD GAS ORDER LYNDSEY Final Result Performing Organization Address [facility] de Phone Number [facility] [address] [place] [address] * ELECTROLYTES (11/03/2008 6:20 EDT) Sodium 144 [...] Organization Address [facility] de Phone Number [facility] [address] [place] [address] * CREATININE (11/03/2008 6:20 EDT) Creatinine 0.70 0.7 - 1.5 mg/dl [facility] GFR, Calculated >60 ml/min/1.7 3m2 [facility] Blood specimen (specimen) 11/03/2008 6:20 EDT 11/03/2008 6:27 EDT us Christopher Ga MD CHEMISTRY & BLOOD GAS ORDER LYNDSEY Final Result Performing Organization Address [facility] de Phone Number [facility] [address] [place] [address] * BUN (11/03/2008 6:20 EDT) BUN 15 10 - 26 mg/dl [facility] Blood specimen (specimen) 11/03/2008 6:20 EDT 11/03/2008 6:27 EDT us Christopher Ga MD CHEMISTRY & BLOOD GAS ORDER LYNDSEY Final Result Performing Organization Address [facility] Co de Phone Number [facility] [address] [place] [address] * SODIUM (11/03/2008 0:15 EDT) Sodium 143 136 - 145 mEq/L [facility] Blood specimen (specimen) 11/03/2008 0:15 EDT 11/03/2008 0:30 EDT us Christopher Ga MD CHEMISTRY & BLOOD GAS ORDER LYNDSEY Final Result Performing Organization Address [facility] de Phone Number [facility] [address] [place] [address] * ELECTROLYTES (11/02/2008 18:05 EDT) Sodium 141 [...] Final Result Performing Organization Address [facility] de Phone Number [facility] [address] [place] [address] * CREATININE (11/02/2008 18:05 EDT) Creatinine 0.70 0.7 - 1.5 mg/dl [facility] GFR, Calculated >60 ml/min/1.7 3m2 [facility] Blood specimen (specimen) 11/02/2008 18:05 EDT 11/02/2008 18:22 EDT us Christopher Ga MD CHEMISTRY & BLOOD GAS ORDER LYNDSEY Final Result Performing Organization Address [facility] de Phone Number [facility] [address] [place] [address] * BUN (11/02/2008 18:05 EDT) BUN 17 10 - 26 mg/dl [facility] Blood specimen (specimen) 11/02/2008 18:05 EDT 11/02/2008 18:22 EDT us Christopher Ga MD CHEMISTRY & BLOOD GAS ORDER LYNDSEY Final Result Performing Organization Address [facility] de Phone Number [facility] [address] [place] [address] * (ABNORMAL) GLUCOSE, SERUM (11/02/2008 5:50 EDT) Glucose, Serum 68(L) 70 - 100 mg/dl [facility] Blood specimen (specimen) 11/02/2008 5:50 EDT 11/02/2008 6:04 EDT us Christopher Ga MD CHEMISTRY & BLOOD GAS ORDER LYNDSEY Final Result Performing Organization Address [facility] de Phone Number [facility] [address] [place] [address] * ELECTROLYTES (11/02/2008 5:50 EDT) Sodium 142 [...] Final Result Performing Organization Address [facility] de Phone Number [facility] [address] [place] [address] * CREATININE (11/02/2008 5:50 EDT) Creatinine 0.70 0.7 - 1.5 mg/dl [facility] GFR, Calculated >60 ml/min/1.7 3m2 [facility] Blood specimen (specimen) 11/02/2008 5:50 EDT 11/02/2008 6:04 EDT us Christopher Ga MD CHEMISTRY & BLOOD GAS ORDER LYNDSEY Final Result Performing Organization Address [facility] de Phone Number [facility] [address] [place] [address] * BUN (11/02/2008 5:50 EDT) BUN 15 10 - 26 mg/dl [facility] Blood specimen (specimen) 11/02/2008 5:50 EDT 11/02/2008 6:04 EDT us Christopher Ga MD CHEMISTRY & BLOOD GAS ORDER LYNDSEY Final Result Performing Organization Address [facility] de Phone Number [facility] [address] [place] [address] * SODIUM (11/01/2008 22:00 EDT) Pathologist [facility] Sodium 137 136 - 145 mEq/L [facility] Blood specimen (specimen) 11/01/2008 22:00 EDT 11/01/2008 22:24 EDT us Christopher Ga MD CHEMISTRY & BLOOD GAS ORDER LYNDSEY Final Result Performing Organization Address [facility] de Phone Number [facility] [address] [place] [address] * SODIUM, URINE RANDOM (11/01/2008 13:30 EDT) Sodium, Ur 15.0 mEq/L [facility] Urine specimen (specimen) 11/01/2008 13:30 EDT 11/01/2008 13:51 EDT us Christopher Ga MD URINALYSIS ORDERABLES Final Result Performing Organization Address [facility] de Phone Number [facility] [address] [place] [address] * (ABNORMAL) OSMOLALITY,URINE (11/01/2008 13:30 EDT) Osmolality, Ur 163(L) 392 - 1090 MOS/KG [facility] Urine specimen (specimen) 11/01/2008 13:30 EDT 11/01/2008 13:51 EDT us Christopher Ga MD URINALYSIS ORDERABLES Final Result Performing Organization Address [facility] Phone Number [facility] [address] [place] [address] * OSMOLALITY (11/01/2008 13:20 EDT) Pathologist [facility] Osmolality Cintia 294 280 - 300 MOS/KG [facility] Blood specimen (specimen) 11/01/2008 13:20 EDT 11/01/2008 13:52 EDT us Christopher Ga MD CHEMISTRY & BLOOD GAS ORDER LYNDSEY Final Result Performing Organization Address [facility] Phone Number [facility] [address] [place] [address] * SODIUM (11/01/2008 13:20 EDT) Pathologist [facility] Sodium 138 136 - 145 mEq/L [facility] Blood specimen (specimen) 11/01/2008 13:20 EDT 11/01/2008 13:52 EDT Christopher Ga MD CHEMISTRY & BLOOD GAS ORDER LYNDSEY Final Result Performing Organization Address [facility] Phone Number [facility] [address] [place] [address] * GLUCOSE, SERUM (11/01/2008 7:00 EDT) Pathologist [facility] Glucose, Serum 77 70 - 100 mg/dl [facility] Blood specimen (specimen) 11/01/2008 7:00 EDT 11/01/2008 7:18 EDT Christopher Ga MD CHEMISTRY & BLOOD GAS ORDER LYNDSEY Final Result Performing Organization Address [facility] de Phone Number [facility] [address] [place] [address] * (ABNORMAL) ELECTROLYTES (11/01/2008 7:00 EDT) Sodium 135(L) 136 - 145 mEq/L [facility] Potassium 3.1(L) 3.5 - 5.0 mEq/L [facility] Chloride 103 96 - 110 mEq/L [facility] CO2 25 24 - 32 mEq/L [facility] Blood specimen (specimen) 11/01/2008 7:00 EDT 11/01/2008 7:18 EDT us Christopher aG MD CHEMISTRY & BLOOD GAS ORDER LYNDSEY Final Result Performing Organization Address [facility] de Phone Number [facility] [address] [place] [address] * CREATININE (11/01/2008 7:00 EDT) Creatinine 0.80 0.7 - 1.5 mg/dl [facility] GFR, Calculated >60 ml/min/1.7 3m2 [facility] Blood specimen (specimen) 11/01/2008 7:00 EDT 11/01/2008 7:18 EDT us Christopher Ga MD CHEMISTRY & BLOOD GAS ORDER LYNDSEY Final Result Performing Organization Address [facility] de Phone Number [facility] [address] [place] [address] * BUN (11/01/2008 7:00 EDT) BUN 18 10 - 26 mg/dl [facility] Blood specimen (specimen) 11/01/2008 7:00 EDT 11/01/2008 7:18 EDT us Christopher Ga MD CHEMISTRY & BLOOD GAS ORDER LYNDSEY Final Result Performing Organization Address [facility] de Phone Number [facility] [address] [place] [address] * HOLD SST (10/31/2008 20:00 EDT) Hold SST Hold for further testing. Specimen will be held for 5 days. [facility] 10/31/2008 20:0 0 EDT 10/31/2008 20:13 EDT us Christopher Ga MD LAB INFO SERVICE AND SUPPOR T & PHONE RESULT Final Result Performing Organization Address [facility] Phone Number [facility] [address] [place] [address] * CORTISOL (10/31/2008 20:00 EDT) Cortisol 17 ug/dl [facility] Comment: 7-9a.m.=4.3-22.4 3-5p.m.=3.1-16.7 Blood specimen (specimen) 10/31/2008 20:00 EDT 10/31/2008 20:13 EDT us Christopher Ga MD CHEMISTRY & BLOOD GAS ORDER LYNDSEY Final Result Performing Organization Address [facility] Phone Number [facility] [address] [place] [address] * (ABNORMAL) GLUCOSE, SERUM (10/31/2008 7:00 EDT) Glucose, Serum 68(L) 70 - 100 mg/dl [facility] Blood specimen (specimen) 10/31/2008 7:00 EDT 10/31/2008 7:33 EDT us Christopher Ga MD CHEMISTRY & BLOOD GAS ORDER LYNDSEY Final Result Performing Organization Address [facility] de Phone Number [facility] [address] [place] [address] * ELECTROLYTES (10/31/2008 7:00 EDT) Sodium 142 136 - 145 mEq/L [facility] Potassium 3.9 3.5 - 5.0 mEq/L [facility] Chloride 109 96 - 110 mEq/L [facility] CO2 26 24 - 32 mEq/L [facility] Blood specimen (specimen) 10/31/2008 7:00 EDT 10/31/2008 7:33 EDT us Christopher Ga MD CHEMISTRY & BLOOD GAS ORDER LYNDSEY Final Result Performing Organization Address [facility]/ZIP Co de Phone Number [facility] [address] [place] [address] * CREATININE (10/31/2008 7:00 EDT) Creatinine 0.70 0.7 - 1.5 mg/dl [facility] GFR, Calculated >60 ml/min/1.7 3m2 [facility] Blood specimen (specimen) 10/31/2008 7:00 EDT 10/31/2008 7:33 EDT us Christopher Ga MD CHEMISTRY & BLOOD GAS ORDER LYNDSEY Final Result Performing Organization Address [facility] Co de Phone Number [facility] [address] [place] [address] * BUN (10/31/2008 7:00 EDT) BUN 16 10 - 26 mg/dl [facility] Blood specimen (specimen) 10/31/2008 7:00 EDT 10/31/2008 7:33 EDT us Christopher Ga MD CHEMISTRY & BLOOD GAS ORDER LYNDSEY Final Result Performing Organization Address [facility] de Phone Number [facility] [address] [place] [address] * GLUCOSE, SERUM (10/30/2008 18:45 EDT) Glucose, Serum 88 70 - 100 mg/dl [facility] 10/30/2008 18:4 5 EDT 10/30/2008 18:56 EDT us Christopher Ga MD CHEMISTRY & BLOOD GAS ORDER LYNDSEY Final Result Performing Organization Address [facility] [facility] [place] Co de Phone Number [facility] [address] [place] [address] * SODIUM (10/30/2008 18:45 EDT) Pathologist [facility] Sodium 141 136 - 145 mEq/L [facility] 10/30/2008 18:4 5 EDT 10/30/2008 18:56 EDT Christopher Ga MD CHEMISTRY & BLOOD GAS ORDER LYNDSEY Final Result Performing Organization Address [facility] de Phone Number [facility] [address] [place] [address] * CORTISOL (10/30/2008 18:45 EDT) Pathologist [facility] Cortisol 32 ug/dl [facility] Comment: 7-9a.m.=4.3-22.4 3-5p.m.=3.1-16.7 Blood specimen (specimen) 10/30/2008 18:45 EDT 10/30/2008 18:56 EDT Christopher Ga MD CHEMISTRY & BLOOD GAS ORDER LYNDSEY Final Result Performing Organization Address [facility] de Phone Number [facility] [address] [place] [address] * SODIUM, URINE RANDOM (10/30/2008 7:15 EDT) Pathologist [facility] Sodium, Ur 65.0 mEq/L [facility] Urine specimen (specimen) 10/30/2008 7:15 EDT 10/30/2008 7:32 EDT Christopher Ga MD URINALYSIS ORDERABLES Final Result Performing Organization Address [facility] de Phone Number [facility] [address] [place] [address] * (ABNORMAL) OSMOLALITY,URINE (10/30/2008 7:15 EDT) Pathologist [facility] Osmolality, Ur 199(L) 392 - 1090 MOS/KG [facility] Urine specimen (specimen) 10/30/2008 7:15 EDT 10/30/2008 7:32 EDT Christopher Ga MD URINALYSIS ORDERABLES Final Result Performing Organization Address [facility] de Phone Number [facility] [address] [place] [address] * (ABNORMAL) GLUCOSE, SERUM (10/30/2008 7:15 EDT) Glucose, Serum 69(L) 70 - 100 mg/dl [facility] Comment:Heparinized plasma. Blood specimen (specimen) 10/30/2008 7:15 EDT 10/30/2008 7:32 EDT us Christopher Ga MD CHEMISTRY & BLOOD GAS ORDER LYNDSEY Final Result Performing Organization Address [facility] Phone Number [facility] [address] [place] [address] * ELECTROLYTES (10/30/2008 7:15 EDT) Sodium 142 [...] ORDER LYNDSEY Final Result Performing Organization Address [facility] Phone Number [facility] [address] [place] [address] * CREATININE (10/30/2008 7:15 EDT) Creatinine 0.70 0.7 - 1.5 mg/dl [facility] Comment:Heparinized plasma. GFR, Calculated >60 ml/min/1.7 3m2 [facility] Comment:Heparinized plasma. Blood specimen (specimen) 10/30/2008 7:15 EDT 10/30/2008 7:32 EDT us Christopher Ga MD CHEMISTRY & BLOOD GAS ORDER LYNDSEY Final Result Performing Organization Address [facility] Phone Number [facility] [address] [place] [address] * BUN (10/30/2008 7:15 EDT) BUN 13 10 - 26 mg/dl [facility] Comment:Heparinized plasma. Blood specimen (specimen) 10/30/2008 7:15 EDT 10/30/2008 7:32 EDT us Christopher Ga MD CHEMISTRY & BLOOD GAS ORDER LYNDSEY Final Result Performing Organization Address [facility] Phone Number [facility] [address] [place] [address] * (ABNORMAL) OSMOLALITY,URINE (10/29/2008 19:50 EDT) Pathologist [facility] Osmolality, Ur 106(L) 392 - 1090 MOS/KG [facility] Urine specimen (specimen) 10/29/2008 19:50 EDT 10/29/2008 20:08 EDT us Christopher Ga MD URINALYSIS ORDERABLES Final Result Performing Organization Address [facility] Phone Number [facility] [address] [place] [address] * GLUCOSE, SERUM (10/29/2008 18:15 EDT) Pathologist [facility] Glucose, Serum 87 70 - 100 mg/dl [facility] Blood specimen (specimen) 10/29/2008 18:15 EDT 10/29/2008 18:44 EDT us Christopher Ga MD CHEMISTRY & BLOOD GAS ORDER LYNDSEY Final Result Performing Organization Address [facility] de Phone Number [facility] [address] [place] [address] * SODIUM (10/29/2008 18:15 EDT) Pathologist [facility] Sodium 136 136 - 145 mEq/L [facility] Blood specimen (specimen) 10/29/2008 18:15 EDT 10/29/2008 18:44 EDT us Christopher Ga MD CHEMISTRY & BLOOD GAS ORDER LYNDSEY Final Result Performing Organization Address [facility] Phone Number [facility] [address] [place] [address] * SODIUM, URINE RANDOM (10/29/2008 18:15 EDT) Sodium, Ur 87.0 mEq/L [facility] Urine specimen (specimen) 10/29/2008 18:15 EDT 10/29/2008 18:45 EDT us Christopher Ga MD URINALYSIS ORDERABLES Final Result Performing Organization Address [facility] Phone Number [facility] [address] [place] [address] * (ABNORMAL) OSMOLALITY,URINE (10/29/2008 18:15 EDT) Pathologist [facility] Osmolality, Ur 336(L) 392 - 1090 MOS/KG [facility] Urine specimen (specimen) 10/29/2008 18:15 EDT 10/29/2008 18:45 EDT us Christopher Ga MD URINALYSIS ORDERABLES Final Result Performing Organization Address [facility] Phone Number [facility] [address] [place] [address] * (ABNORMAL) GLUCOSE, SERUM (10/29/2008 6:40 EDT) Pathologist [facility] Glucose, Serum 63(L) 70 - 100 mg/dl [facility] Blood specimen (specimen) 10/29/2008 6:40 EDT 10/29/2008 6:55 EDT Christopher Ga MD CHEMISTRY & BLOOD GAS ORDER LYNDSEY Final Result Performing Organization Address [facility] Co de Phone Number [facility] [address] [place] [address] * ELECTROLYTES (10/29/2008 6:40 EDT) Sodium 138 [...] ORDER LYNDSEY Final Result Performing Organization Address [facility] de Phone Number [facility] [address] [place] [address] * CREATININE (10/29/2008 6:40 EDT) Pathologist [facility] Creatinine 0.70 0.7 - 1.5 mg/dl [facility] GFR, Calculated >60 ml/min/1.7 3m2 [facility] Blood specimen (specimen) 10/29/2008 6:40 EDT 10/29/2008 6:55 EDT us Christopher Ga MD CHEMISTRY & BLOOD GAS ORDER LYNDSEY Final Result Performing Organization Address [facility] de Phone Number [facility] [address] [place] [address] * BUN (10/29/2008 6:40 EDT) BUN 13 10 - 26 mg/dl [facility] Blood specimen (specimen) 10/29/2008 6:40 EDT 10/29/2008 6:55 EDT us Christopher Ga MD CHEMISTRY & BLOOD GAS ORDER LYNDSEY Final Result Performing Organization Address [facility] Co de Phone Number [facility] [address] [place] [address] * (ABNORMAL) OSMOLALITY,URINE (10/29/2008 6:35 EDT) Osmolality, Ur 171(L) 392 - 1090 MOS/KG [facility] 10/29/2008 6:35 EDT 10/29/2008 6:57 EDT us Christopher Ga MD URINALYSIS ORDERABLES Final Result Performing Organization Address [facility] Phone Number [facility] [address] [place] [address] * SODIUM, URINE RANDOM (10/29/2008 6:35 EDT) Sodium, Ur 71.0 mEq/L [facility] 10/29/2008 6:35 EDT 10/29/2008 6:57 EDT us Christopher Ga MD URINALYSIS ORDERABLES Final Result Performing Organization Address [facility] Phone Number [facility] [address] [place] [address] * SODIUM, URINE RANDOM (10/29/2008 1:35 EDT) Sodium, Ur 262.0 mEq/L [facility] Urine specimen (specimen) 10/29/2008 1:35 EDT 10/29/2008 1:54 EDT us Christopher Ga MD URINALYSIS ORDERABLES Final Result Performing Organization Address [facility] Phone Number [facility] [address] [place] [address] * OSMOLALITY,URINE (10/29/2008 1:35 EDT) Osmolality, Ur 581 392 - 1090 MOS/KG [facility] Urine specimen (specimen) 10/29/2008 1:35 EDT 10/29/2008 1:54 EDT Christopher Ga MD URINALYSIS ORDERABLES Final Result Performing Organization Address [facility] Co de Phone Number [facility] [address] [place] [address] * TESTS ADDED BY PHONE (10/28/2008 19:25 EDT) 10/28/2008 19:2 5 EDT 10/28/2008 19:34 EDT Christopher Ga MD CHEMISTRY & BLOOD GAS ORDER LYNDSEY Final Result Performing Organization Address [facility] de Phone Number [facility] [address] [place] [address] * (ABNORMAL) OSMOLALITY,URINE (10/28/2008 19:25 EDT) Pathologist [facility] Osmolality, Ur 327(L) 392 - 1090 MOS/KG [facility] 10/28/2008 19:2 5 EDT 10/28/2008 19:36 EDT us Christopher Ga MD URINALYSIS ORDERABLES Final Result Performing Organization Address [facility] de Phone Number [facility] [address] [place] [address] * HOLD GREEN TOP (10/28/2008 19:25 EDT) [facility] Hold Green Top Hold for further testing. Specimen will be held for 5 days. [facility] 10/28/2008 19:2 5 EDT 10/28/2008 19:34 EDT us Christopher Ga MD LAB INFO SERVICE AND SUPPOR T & PHONE RESULT Final Result Performing Organization Address [facility] de Phone Number [facility] [address] [place] [address] * SODIUM, URINE RANDOM (10/28/2008 19:25 EDT) Pathologist [facility] Sodium, Ur 115.0 mEq/L [facility] Urine specimen (specimen) 10/28/2008 19:25 EDT 10/28/2008 19:36 EDT Christopher Ga MD URINALYSIS ORDERABLES Final Result Performing Organization Address [facility] de Phone Number [facility] [address] [place] [address] * GLUCOSE, SERUM (10/28/2008 19:25 EDT) Glucose, Serum 80 70 - 100 mg/dl [facility] Blood specimen (specimen) 10/28/2008 19:25 EDT 10/28/2008 19:34 EDT us Christopher Ga MD CHEMISTRY & BLOOD GAS ORDER LYNDSEY Final Result Performing Organization Address [facility] Phone Number [facility] [address] [place] [address] * ELECTROLYTES (10/28/2008 19:25 EDT) Sodium 142 [...] ORDER LYNDSEY Final Result Performing Organization Address [facility] Phone Number [facility] [address] [place] [address] * CORTISOL (10/28/2008 19:25 EDT) Cortisol 20 ug/dl [facility] Comment: 7-9a.m.=4.3-22.4 3-5p.m.=3.1-16.7 Blood specimen (specimen) 10/28/2008 19:25 EDT 10/28/2008 19:34 EDT us Christopher Ga MD CHEMISTRY & BLOOD GAS ORDER LYNDSEY Final Result Performing Organization Address [facility]/State/ZIP Co de Phone Number [facility] [address] [place] [address] * TESTOSTERONE (10/28/2008 12:41 EDT) Testosterone, Total 398 241 - 827 ng/dL [facility] Blood specimen (specimen) 10/28/2008 12:41 EDT 10/28/2008 12:44 EDT us Christopher Ga MD CHEMISTRY & BLOOD GAS ORDER LYNDSEY Final Result Performing Organization Address [facility] Co de Phone Number [facility] [address] [place] [address] * (ABNORMAL) SODIUM (10/28/2008 11:55 EDT) Pathologist [facility] Sodium 146(H) 136 - 145 mEq/L [facility] 10/28/2008 11:5 5 EDT 10/28/2008 12:24 EDT us Christopher Ga MD CHEMISTRY & BLOOD GAS ORDER LYNDSEY Final Result Performing Organization Address [facility] de Phone Number [facility] [address] [place] [address] * TESTOSTERONE (10/28/2008 11:55 EDT) Testosterone, Total Wrong tube/speci men type 241 - 827 ng/dL [facility] Blood specimen (specimen) 10/28/2008 11:55 EDT 10/28/2008 12:16 EDT us Christopher Ga MD CHEMISTRY & BLOOD GAS ORDER LYNDSEY Final Result Performing Organization Address [facility] Co de Phone Number [facility] [address] [place] [address] * CORTISOL (10/28/2008 11:55 EDT) Pathologist [facility] Cortisol Wrong tube/speci men type ug/dl [facility] Comment:SPOKE TO ANKITA Blood specimen (specimen) 10/28/2008 11:55 EDT 10/28/2008 12:16 EDT us Christopher Ga MD CHEMISTRY & BLOOD GAS ORDER LYNDSEY Final Result Performing Organization Address [facility] Co de Phone Number [facility] [address] [place] [address] * SODIUM (10/28/2008 11:55 EDT) Sodium Wrong tube/speci men type 136 - 145 mEq/L [facility] Comment:SPOKE TO ANKITA Blood specimen (specimen) 10/28/2008 11:55 EDT 10/28/2008 12:16 EDT us Christopher Ga MD CHEMISTRY & BLOOD GAS ORDER LYNDSEY Final Result Performing Organization Address [facility] de Phone Number [facility] [address] [place] [address] * SODIUM, URINE RANDOM (10/28/2008 11:45 EDT) Sodium, Ur 214.0 mEq/L [facility] Urine specimen (specimen) 10/28/2008 11:45 EDT 10/28/2008 12:14 EDT us Christopher Ga MD URINALYSIS ORDERABLES Final Result Performing Organization Address [facility] de Phone Number [facility] [address] [place] [address] * OSMOLALITY,URINE (10/28/2008 11:45 EDT) Pathologist [facility] Osmolality, Ur 512 392 - 1090 MOS/KG [facility] Urine specimen (specimen) 10/28/2008 11:45 EDT 10/28/2008 12:14 EDT us Christopher Ga MD URINALYSIS ORDERABLES Final Result Performing Organization Address [facility] Co de Phone Number [facility] [address] [place] [address] * SODIUM, URINE RANDOM (10/28/2008 10:13 EDT) Sodium, Ur 58.0 mEq/L [facility] Urine specimen (specimen) 10/28/2008 10:13 EDT 10/28/2008 10:18 EDT us Christopher aG MD URINALYSIS ORDERABLES Final Result Performing Organization Address [facility] de Phone Number [facility] [address] [place] [address] * (ABNORMAL) OSMOLALITY,URINE (10/28/2008 10:13 EDT) Osmolality, Ur 171(L) 392 - 1090 MOS/KG [facility] Urine specimen (specimen) 10/28/2008 10:13 EDT 10/28/2008 10:18 EDT us Christopher Ga MD URINALYSIS ORDERABLES Final Result Performing Organization Address [facility] de Phone Number [facility] [address] [place] [address] * SODIUM (10/28/2008 10:13 EDT) Pathologist [facility] Sodium 144 136 - 145 mEq/L [facility] Blood specimen (specimen) 10/28/2008 10:13 EDT 10/28/2008 10:18 EDT us Christopher Ga MD CHEMISTRY & BLOOD GAS ORDER LYNDSEY Final Result Performing Organization Address [facility] de Phone Number [facility] [address] [place] [address] * TESTS ADDED BY PHONE (10/28/2008 8:15 EDT) Pathologist [facility] Tests to be added OSM [facility]HA GARCIA Who Called DR NAVI [facility] Location Code M3 [facility] Read Back/Confirmed ? YES [facility] 10/28/2008 8:15 EDT 10/28/2008 8:30 EDT us Christopher Ga MD CHEMISTRY & BLOOD GAS ORDER LYNDSEY Final Result Performing Organization Address [facility] Co de Phone Number [facility] [address] [place] [address] * (ABNORMAL) OSMOLALITY,URINE (10/28/2008 8:15 EDT) Osmolality, Ur 295(L) 392 - 1090 MOS/KG [facility] 10/28/2008 8:15 EDT 10/28/2008 8:30 EDT us Christopher Ga MD URINALYSIS ORDERABLES Final Result Performing Organization Address [facility] Phone Number [facility] [address] [place] [address] * SODIUM, URINE RANDOM (10/28/2008 8:15 EDT) Sodium, Ur 131.0 mEq/L [facility] Urine specimen (specimen) 10/28/2008 8:15 EDT 10/28/2008 8:30 EDT us Christopher Ga MD URINALYSIS ORDERABLES Final Result Performing Organization Address [facility] Phone Number [facility] [address] [place] [address] * (ABNORMAL) ELECTROLYTES (10/28/2008 8:15 EDT) Sodium 143 136 - 145 mEq/L [facility] Potassium 3.3(L) 3.5 - 5.0 mEq/L [facility] Chloride 109 96 - 110 mEq/L [facility] CO2 30 24 - 32 mEq/L [facility] Blood specimen (specimen) 10/28/2008 8:15 EDT 10/28/2008 8:29 EDT us Christopher Ga MD CHEMISTRY & BLOOD GAS ORDER LYNDSEY Final Result Performing Organization Address [facility] Co de Phone Number [facility] [address] [place] [address] * (ABNORMAL) ELECTROLYTES (10/28/2008 6:00 EDT) Sodium [...] Organization Address [facility] Phone Number [facility] [address] [place] [address] * (ABNORMAL) CREATININE (10/28/2008 6:00 EDT) Creatinine 0.65(L) 0.7 - 1.5 mg/dl [facility] GFR, Calculated >60 ml/min/1.7 3m2 [facility] 10/28/2008 6:00 EDT 10/28/2008 6:16 EDT us Christopher Ga MD CHEMISTRY & BLOOD GAS ORDER LYNDSEY Final Result Performing Organization Address [facility] de Phone Number [facility] [address] [place] [address] * (ABNORMAL) BUN (10/28/2008 6:00 EDT) BUN 9(L) 10 - 26 mg/dl [facility] 10/28/2008 6:00 EDT 10/28/2008 6:16 EDT us Christopher Ga MD CHEMISTRY & BLOOD GAS ORDER LYNDSEY Final Result Performing Organization Address [facility] de Phone Number [facility] [address] [place] [address] * SODIUM, URINE RANDOM (10/28/2008 6:00 EDT) Sodium, Ur 169.0 mEq/L [facility] Urine specimen (specimen) 10/28/2008 6:00 EDT 10/28/2008 6:15 EDT us Christopher Ga MD URINALYSIS ORDERABLES Final Result Performing Organization Address [facility] Phone Number [facility] [address] [place] [address] * OSMOLALITY,URINE (10/28/2008 6:00 EDT) Osmolality, Ur 397 392 - 1090 MOS/KG [facility] Urine specimen (specimen) 10/28/2008 6:00 EDT 10/28/2008 6:15 EDT us Christopher Ga MD URINALYSIS ORDERABLES Final Result Performing Organization Address [facility] [place] [address] * GLUCOSE, SERUM (10/28/2008 4:00 EDT) Pathologist [facility] Glucose, Serum 74 70 - 100 mg/dl [facility] Blood specimen (specimen) 10/28/2008 4:00 EDT 10/28/2008 4:01 EDT us Christopher Ga MD CHEMISTRY & BLOOD GAS ORDER LYNDSEY Final Result Performing Organization Address [facility] Phone Number [facility] [address] [place] [address] * SODIUM (10/28/2008 4:00 EDT) Sodium 143 136 - 145 mEq/L [facility] Blood specimen (specimen) 10/28/2008 4:00 EDT 10/28/2008 4:01 EDT us Christopher Ga MD CHEMISTRY & BLOOD GAS ORDER LYNDSEY Final Result [facility] [address] [place] [address] * SODIUM, URINE RANDOM (10/28/2008 4:00 EDT) Sodium, Ur 177.0 mEq/L [facility] Urine specimen (specimen) 10/28/2008 4:00 EDT 10/28/2008 4:01 EDT us Christopher Ga MD URINALYSIS ORDERABLES Final Result Performing Organization Address [facility] Co de Phone Number [facility] [address] [place] [address] * OSMOLALITY,URINE (10/28/2008 4:00 EDT) Osmolality, Ur 402 392 - 1090 MOS/KG [facility] Urine specimen (specimen) 10/28/2008 4:00 EDT 10/28/2008 4:01 EDT us Christopher Ga MD URINALYSIS ORDERABLES Final Result Performing Organization Address [facility] Co de Phone Number [facility] [address] [place] [address] * SODIUM, URINE RANDOM (10/28/2008 2:30 EDT) Sodium, Ur 175.0 mEq/L [facility] Urine specimen (specimen) 10/28/2008 2:30 EDT 10/28/2008 2:35 EDT us Christopher Ga MD URINALYSIS ORDERABLES Final Result Performing Organization Address [facility] Co de Phone Number [facility] [address] [place] [address] * OSMOLALITY,URINE (10/28/2008 2:30 EDT) Osmolality, Ur 398 392 - 1090 MOS/KG [facility] Urine specimen (specimen) 10/28/2008 2:30 EDT 10/28/2008 2:35 EDT us Christopher Ga MD URINALYSIS ORDERABLES Final Result Performing Organization Address [facility]/ZIP Co de Phone Number [facility] [address] [place] [address] * SODIUM (10/28/2008 2:00 EDT) Sodium 144 136 - 145 mEq/L [facility] 10/28/2008 2:00 EDT 10/28/2008 2:14 EDT us Christopher Ga MD CHEMISTRY & BLOOD GAS ORDER LYNDSEY Final Result Performing Organization Address [facility] Co de Phone Number [facility] [address] [place] [address] * SODIUM, URINE RANDOM (10/27/2008 20:00 EDT) Sodium, Ur 213.0 mEq/L [facility] Comment:Sample retested, res ult confirmed Urine specimen (specimen) 10/27/2008 20:00 EDT 10/27/2008 20:09 EDT us Christopher Ga MD URINALYSIS ORDERABLES Final Result Performing Organization Address [facility] de Phone Number [facility] [address] [place] [address] * OSMOLALITY,URINE (10/27/2008 20:00 EDT) Osmolality, Ur 544 392 - 1090 MOS/KG [facility] Urine specimen (specimen) 10/27/2008 20:00 EDT 10/27/2008 20:09 EDT us Christopher Ga MD URINALYSIS ORDERABLES Final Result Performing Organization Address [facility] Co de Phone Number [facility] [address] [place] [address] * (ABNORMAL) ELECTROLYTES (10/27/2008 20:00 EDT) Sodium [...] Organization Address [facility] de Phone Number [facility] [address] [place] [address] * CREATININE (10/27/2008 20:00 EDT) Creatinine 0.80 0.7 - 1.5 mg/dl [facility] GFR, Calculated >60 ml/min/1.7 3m2 [facility] Blood specimen (specimen) 10/27/2008 20:00 EDT 10/27/2008 20:09 EDT us Christopher Ga MD CHEMISTRY & BLOOD GAS ORDER LYNDSEY Final Result Performing Organization Address [facility] Phone Number [facility] [address] [place] [address] * BUN (10/27/2008 20:00 EDT) BUN 13 10 - 26 mg/dl [facility] Blood specimen (specimen) 10/27/2008 20:00 EDT 10/27/2008 20:09 EDT us Christopher Ga MD CHEMISTRY & BLOOD GAS ORDER LYNDSEY Final Result Performing Organization Address [facility] de Phone Number [facility] [address] [place] [address] * (ABNORMAL) SODIUM (10/27/2008 14:30 EDT) Sodium 152(H) 136 - 145 mEq/L [facility] Blood specimen (specimen) 10/27/2008 14:30 EDT 10/27/2008 14:47 EDT us Christopher Ga MD CHEMISTRY & BLOOD GAS ORDER LYNDSEY Final Result Performing Organization Address [facility] de Phone Number [facility] [address] [place] [address] * SODIUM, URINE RANDOM (10/27/2008 13:20 EDT) Sodium, Ur 19.0 mEq/L [facility] Urine specimen (specimen) 10/27/2008 13:20 EDT 10/27/2008 13:32 EDT us Christopher Ga MD URINALYSIS ORDERABLES Final Result Performing Organization Address [facility] de Phone Number [facility] [address] [place] [address] * (ABNORMAL) OSMOLALITY,URINE (10/27/2008 13:20 EDT) Osmolality, Ur 116(L) 392 - 1090 MOS/KG [facility] Urine specimen (specimen) 10/27/2008 13:20 EDT 10/27/2008 13:32 EDT us Christopher Ga MD URINALYSIS ORDERABLES Final Result Performing Organization Address [facility] de Phone Number [facility] [address] [place] [address] * SODIUM, URINE RANDOM (10/27/2008 12:23 EDT) Sodium, Ur 107.0 mEq/L [facility] Urine specimen (specimen) 10/27/2008 12:23 EDT 10/27/2008 12:23 EDT us Christopher Ga MD URINALYSIS ORDERABLES Final Result Performing Organization Address [facility] de Phone Number [facility] [address] [place] [address] * OSMOLALITY,URINE (10/27/2008 12:23 EDT) Osmolality, Ur 808 392 - 1090 MOS/KG [facility] Urine specimen (specimen) 10/27/2008 12:23 EDT 10/27/2008 12:23 EDT Christopher Ga MD URINALYSIS ORDERABLES Final Result Performing Organization Address [facility] Phone Number [facility] [address] [place] [address] * (ABNORMAL) SODIUM (10/27/2008 12:21 EDT) Sodium 150(H) 136 - 145 mEq/L [facility] Blood specimen (specimen) 10/27/2008 12:21 EDT 10/27/2008 12:21 EDT Christopher Ga MD CHEMISTRY & BLOOD GAS ORDER LYNDSEY Final Result Performing Organization Address [facility] Phone Number [facility] [address] [place] [address] * (ABNORMAL) SODIUM (10/27/2008 9:40 EDT) Sodium 151(H) 136 - 145 mEq/L [facility] Blood specimen (specimen) 10/27/2008 9:40 EDT 10/27/2008 9:59 EDT Christopher Ga MD CHEMISTRY & BLOOD GAS ORDER LYNDSEY Final Result Performing Organization Address [facility] de Phone Number [facility] [address] [place] [address] * (ABNORMAL) SODIUM (10/27/2008 6:50 EDT) Sodium 152(H) 136 - 145 mEq/L [facility] Comment:Sample retested, res ult confirmed Blood specimen (specimen) 10/27/2008 6:50 EDT 10/27/2008 6:52 EDT us Christopher Ga MD CHEMISTRY & BLOOD GAS ORDER LYNDSEY Final Result Performing Organization Address [facility] de Phone Number [facility] [address] [place] [address] * (ABNORMAL) SODIUM (10/27/2008 6:15 EDT) Sodium 124(LL) 136 - 145 mEq/L [facility] Comment: Sample retested, result confirmed Question specimen contaminated. Repeat Requested Blood specimen (specimen) 10/27/2008 6:15 EDT 10/27/2008 6:16 EDT us Christopher Ga MD CHEMISTRY & BLOOD GAS ORDER LYNDSEY Final Result Performing Organization Address [facility] Phone Number [facility] [address] [place] [address] * GLUCOSE, SERUM (10/27/2008 4:30 EDT) Glucose, Serum 86 70 - 100 mg/dl [facility] 10/27/2008 4:30 EDT 10/27/2008 4:34 EDT us Christopher Ga MD CHEMISTRY & BLOOD GAS ORDER LYNDSEY Final Result Performing Organization Address [facility] Phone Number [facility] [address] [place] [address] * (ABNORMAL) ELECTROLYTES (10/27/2008 4:30 EDT) Sodium [...] Organization Address [facility]/State/ZIP Co de Phone Number [facility] [address] [place] [address] * CREATININE (10/27/2008 4:30 EDT) Pathologist [facility] Creatinine 0.83 0.7 - 1.5 mg/dl [facility] GFR, Calculated >60 ml/min/1.7 3m2 [facility] Blood specimen (specimen) 10/27/2008 4:30 EDT 10/27/2008 4:34 EDT us Christopher Ga MD CHEMISTRY & BLOOD GAS ORDER LYNDSEY Final Result Performing Organization Address [facility] de Phone Number [facility] [address] [place] [address] * BUN (10/27/2008 4:30 EDT) BUN 14 10 - 26 mg/dl [facility] Blood specimen (specimen) 10/27/2008 4:30 EDT 10/27/2008 4:34 EDT us Christopher Ga MD CHEMISTRY & BLOOD GAS ORDER LYNDSEY Final Result Performing Organization Address [facility] Phone Number [facility] [address] [place] [address] * (ABNORMAL) SODIUM (10/27/2008 1:30 EDT) Pathologist [facility] Sodium 159(HH) 136 - 145 mEq/L [facility] Comment:Sample retested, res ult confirmed Blood specimen (specimen) 10/27/2008 1:30 EDT 10/27/2008 1:41 EDT Christopher Ga MD CHEMISTRY & BLOOD GAS ORDER LYNDSEY Final Result Performing Organization Address [facility] de Phone Number [facility] [address] [place] [address] * SODIUM, URINE RANDOM (10/27/2008 0:15 EDT) Pathologist [facility] Sodium, Ur 40.0 mEq/L [facility] Urine specimen (specimen) 10/27/2008 0:15 EDT 10/27/2008 0:19 EDT us Christopher Ga MD URINALYSIS ORDERABLES Final Result Performing Organization Address [facility] de Phone Number [facility] [address] [place] [address] * (ABNORMAL) OSMOLALITY,URINE (10/27/2008 0:15 EDT) Osmolality, Ur 201(L) 392 - 1090 MOS/KG [facility] Urine specimen (specimen) 10/27/2008 0:15 EDT 10/27/2008 0:19 EDT us Christopher Ga MD URINALYSIS ORDERABLES Final Result Performing Organization Address [facility] de Phone Number [facility] [address] [place] [address] * (ABNORMAL) SODIUM (10/26/2008 22:48 EDT) Sodium 161(HH) 136 - 145 mEq/L [facility] Comment:Sample retested, res ult confirmed Blood specimen (specimen) 10/26/2008 22:48 EDT 10/26/2008 23:00 EDT us Christopher Ga MD CHEMISTRY & BLOOD GAS ORDER LYNDSEY Final Result Performing Organization Address [facility] de Phone Number [facility] [address] [place] [address] * CORTISOL (10/26/2008 18:41 EDT) Cortisol 23 ug/dl [facility] Comment: 7-9a.m.=4.3-22.4 3-5p.m.=3.1-16.7 10/26/2008 18:4 1 EDT 10/26/2008 18:41 EDT us Christopher Ga MD CHEMISTRY & BLOOD GAS ORDER LYNDSEY Final Result Performing Organization Address [facility] Co de Phone Number [facility] [address] [place] [address] * (ABNORMAL) SODIUM (10/26/2008 18:41 EDT) Sodium 154(H) 136 - 145 mEq/L [facility] Blood specimen (specimen) 10/26/2008 18:41 EDT 10/26/2008 18:41 EDT us Christopher Ga MD CHEMISTRY & BLOOD GAS ORDER LYNDSEY Final Result Performing Organization Address [facility] de Phone Number [facility] [address] [place] [address] * (ABNORMAL) SODIUM (10/26/2008 9:59 EDT) Sodium 148(H) 136 - 145 mEq/L [facility] Blood specimen (specimen) 10/26/2008 9:59 EDT 10/26/2008 10:02 EDT us Christopher Ga MD CHEMISTRY & BLOOD GAS ORDER LYNDSEY Final Result Performing Organization Address [facility] de Phone Number [facility] [address] [place] [address] * CORTISOL (10/26/2008 6:12 EDT) Pathologist [facility] Cortisol 13 ug/dl [facility] Comment: 7-9a.m.=4.3-22.4 3-5p.m.=3.1-16.7 10/26/2008 6:12 EDT 10/26/2008 6:24 EDT us Christopher Ga MD CHEMISTRY & BLOOD GAS ORDER LYNDSEY Final Result Performing Organization Address [facility] de Phone Number [facility] [address] [place] [address] * TESTS ADDED BY PHONE (10/26/2008 6:12 EDT) Tests to be added STAT [facility] Who Called TAMIE M3 FOR DR CHARLEEN GARCIA Location Code M3 [facility] Read Back/Confirmed ? YES [facility] 10/26/2008 6:12 EDT 10/26/2008 6:24 EDT us Christopher Ga MD CHEMISTRY & BLOOD GAS ORDER LYNDSEY Final Result [facility] [address] [place] [address] * (ABNORMAL) HEMAGRAM AND DIFFERENTIAL (10/26/2008 6:12 [...] LAB Neutrophils 67.8 45.5 - 79.7 % [facility] Lymphocytes 26.9 15.0 - 46.8 % [facility] Monocytes 4.7 1.8 - 12.0 % [facility] Eosinophils 0.3(L) 0.6 - 6.9 % [facility] Basophils 0.3 0.2 - 1.4 % [facility] ABS Neutrophils 3.36 2.20 - 8.85 K/cmm [facility] ABS Lymphs 1.34 1.09 - 3.30 K/cmm [facility] ABS Monocytes 0.23 0.1 - 0.8 K/cmm [facility] ABS Eosinophils 0.02(L) 0.03 - 0.61 K/cmm [facility] ABS Basophils 0.01 0.01 - 0.11 K/cmm [facility] Type of Diff: Automated [facility] Blood specimen (specimen) 10/26/2008 6:12 EDT 10/26/2008 6:24 EDT us Christopher Ga MD PACKAGES & DNA PROBE ORDERA BLES Final Result Performing Organization Address [facility] Phone Number [facility] [address] [place] [address] * GLUCOSE, SERUM (10/26/2008 6:12 EDT) Pathologist [facility] Glucose, Serum 71 70 - 100 mg/dl [facility] Blood specimen (specimen) 10/26/2008 6:12 EDT 10/26/2008 6:24 EDT us Christopher Ga MD CHEMISTRY & BLOOD GAS ORDER LYNDSEY Final Result Performing Organization Address [facility] Phone Number [facility] [address] [place] [address] * (ABNORMAL) ELECTROLYTES (10/26/2008 6:12 EDT) Pathologist [facility] Sodium 148(H) 136 - 145 mEq/L [facility] Potassium 3.6 3.5 - 5.0 mEq/L [facility] Chloride 113(H) 96 - 110 mEq/L [facility] CO2 29 24 - 32 mEq/L [facility] Blood specimen (specimen) 10/26/2008 6:12 EDT 10/26/2008 6:24 EDT us Christopher Ga MD CHEMISTRY & BLOOD GAS ORDER LYNDSEY Final Result Performing Organization Address [facility] Phone Number [facility] [address] [place] [address] * CREATININE (10/26/2008 6:12 EDT) Creatinine 0.90 0.7 - 1.5 mg/dl [facility] GFR, Calculated >60 ml/min/1.7 3m2 [facility] Blood specimen (specimen) 10/26/2008 6:12 EDT 10/26/2008 6:24 EDT us Christopher Ga MD CHEMISTRY & BLOOD GAS ORDER LYNDSEY Final Result Performing Organization Address [facility] de Phone Number [facility] [address] [place] [address] * BUN (10/26/2008 6:12 EDT) BUN 20 10 - 26 mg/dl [facility] Blood specimen (specimen) 10/26/2008 6:12 EDT 10/26/2008 6:24 EDT us Christopher Ga MD CHEMISTRY & BLOOD GAS ORDER LYNDSEY Final Result Performing Organization Address [facility] Phone Number [facility] [address] [place] [address] * GLUCOSE, SERUM (10/26/2008 1:57 EDT) Glucose, Serum 71 70 - 100 mg/dl [facility] Blood specimen (specimen) 10/26/2008 1:57 EDT 10/26/2008 2:01 EDT us Christopher Ga MD CHEMISTRY & BLOOD GAS ORDER LYNDSEY Final Result Performing Organization Address [facility] de Phone Number [facility] [address] [place] [address] * (ABNORMAL) SODIUM (10/26/2008 1:57 EDT) Sodium 148(H) 136 - 145 mEq/L [facility] Blood specimen (specimen) 10/26/2008 1:57 EDT 10/26/2008 2:01 EDT Christopher Ga MD CHEMISTRY & BLOOD GAS ORDER LYNDSEY Final Result Performing Organization Address [facility] Co de Phone Number [facility] [address] [place] [address] * (ABNORMAL) SODIUM (10/25/2008 22:00 EDT) Sodium 147(H) 136 - 145 mEq/L [facility] Blood specimen (specimen) 10/25/2008 22:00 EDT 10/25/2008 22:08 EDT us Christopher Ga MD CHEMISTRY & BLOOD GAS ORDER LYNDSEY Final Result Performing Organization Address [facility] de Phone Number [facility] [address] [place] [address] * GLUCOSE, GLUCOMETER (10/25/2008 20:59 EDT) Glucose, Fingerstick 93 70 - 100 mg/dl [facility] Installment Account Checker ID [id number] Test Performed by Nursing Services [facility] 10/25/2008 20:5 9 EDT 10/25/2008 23:05 EDT us Christopher Ga MD CHEMISTRY & BLOOD GAS ORDER LYNDSEY Final Result Performing Organization Address [facility] de Phone Number [facility] [address] [place] [address] * HOLD GREEN TOP (10/25/2008 20:05 EDT) Hold Green Top Hold for further testing. Specimen will be held for 5 days. [facility] 10/25/2008 20:0 5 EDT 10/25/2008 20:18 EDT us Christopher Ga MD LAB INFO SERVICE AND SUPPOR T & PHONE RESULT Final Result Performing Organization Address [facility] Co de Phone Number [facility] [address] [place] [address] * GLUCOSE, SERUM (10/25/2008 20:05 EDT) Glucose, Serum 73 70 - 100 mg/dl [facility] Blood specimen (specimen) 10/25/2008 20:05 EDT 10/25/2008 20:18 EDT us Christopher Ga MD CHEMISTRY & BLOOD GAS ORDER LYNDSEY Final Result Performing Organization Address [facility] de Phone Number [facility] [address] [place] [address] * (ABNORMAL) ELECTROLYTES (10/25/2008 20:05 EDT) Sodium [...] Final Result Performing Organization Address [facility] de Phone Number [facility] [address] [place] [address] * CREATININE (10/25/2008 20:05 EDT) Pathologist [facility] Creatinine 0.80 0.7 - 1.5 mg/dl [facility] GFR, Calculated >60 ml/min/1.7 3m2 [facility] Blood specimen (specimen) 10/25/2008 20:05 EDT 10/25/2008 20:18 EDT us Christopher Ga MD CHEMISTRY & BLOOD GAS ORDER LYNDSEY Final Result Performing Organization Address [facility] de Phone Number [facility] [address] [place] [address] * BUN (10/25/2008 20:05 EDT) BUN 16 10 - 26 mg/dl [facility] Blood specimen (specimen) 10/25/2008 20:05 EDT 10/25/2008 20:18 EDT us Christopher Ga MD CHEMISTRY & BLOOD GAS ORDER LYNDSEY Final Result Performing Organization Address [facility] de Phone Number [facility] [address] [place] [address] * (ABNORMAL) SODIUM (10/25/2008 18:00 EDT) Sodium 148(H) 136 - 145 mEq/L [facility] Blood specimen (specimen) 10/25/2008 18:00 EDT 10/25/2008 18:02 EDT us Christopher Ga MD CHEMISTRY & BLOOD GAS ORDER LYNDSEY Final Result Performing Organization Address [facility] Phone Number [facility] [address] [place] [address] * (ABNORMAL) SODIUM (10/25/2008 16:00 EDT) Sodium 148(H) 136 - 145 mEq/L [facility] Blood specimen (specimen) 10/25/2008 16:00 EDT 10/25/2008 16:24 EDT us Christopher Ga MD CHEMISTRY & BLOOD GAS ORDER LYNDSEY Final Result Performing Organization Address [facility] Phone Number [facility] [address] [place] [address] * PORTABLE CHEST 1 VIEW (10/25/2008 12:50 [...] us Christopher Ga MD IMG DIAGNOSTIC IMAGING ORDEmerald [facility] Final Result * GLUCOSE, SERUM (10/25/2008 12:45 EDT) Glucose, Serum 83 70 - 100 mg/dl [facility] 10/25/2008 12:4 5 EDT 10/25/2008 12:56 EDT us Christopher Ga MD CHEMISTRY & BLOOD GAS ORDER LYNDSEY Final Result [facility] [address] [place] [address] * (ABNORMAL) SODIUM (10/25/2008 12:45 EDT) Sodium 148(H) 136 - 145 mEq/L [facility] Blood specimen (specimen) 10/25/2008 12:45 EDT 10/25/2008 12:56 EDT us Christopher Ga MD CHEMISTRY & BLOOD GAS ORDER LYNDSEY Final Result Performing Organization Address [facility] Phone Number [facility] [address] [place] [address] * (ABNORMAL) SODIUM (10/25/2008 10:00 EDT) Sodium 146(H) 136 - 145 mEq/L [facility] Blood specimen (specimen) 10/25/2008 10:00 EDT 10/25/2008 10:07 EDT us Christopher Ga MD CHEMISTRY & BLOOD GAS ORDER LYNDSEY Final Result Performing Organization Address [facility] Phone Number [facility] [address] [place] [address] * OSMOLALITY,URINE (10/25/2008 8:06 EDT) Osmolality, Ur 513 392 - 1090 MOS/KG [facility] 10/25/2008 8:06 EDT 10/25/2008 8:06 EDT us Christopher Ga MD URINALYSIS ORDERABLES Final Result Performing Organization Address [facility] Phone Number [facility] [address] [place] [address] * SODIUM, URINE RANDOM (10/25/2008 8:06 EDT) Sodium, Ur <5.0 mEq/L [facility] 10/25/2008 8:06 EDT 10/25/2008 8:06 EDT us Christopher aG MD URINALYSIS ORDERABLES Final Result Performing Organization Address [facility] de Phone Number [facility] [address] [place] [address] * (ABNORMAL) OSMOLALITY (10/25/2008 8:04 EDT) Osmolality Cintia 310(H) 280 - 300 MOS/KG [facility] Blood specimen (specimen) 10/25/2008 8:04 EDT 10/25/2008 8:04 EDT us Christopher Ga MD CHEMISTRY & BLOOD GAS ORDER LYNDSEY Final Result Performing Organization Address [facility] de Phone Number [facility] [address] [place] [address] * GLUCOSE, SERUM (10/25/2008 8:04 EDT) Pathologist [facility] Glucose, Serum 80 70 - 100 mg/dl [facility] Blood specimen (specimen) 10/25/2008 8:04 EDT 10/25/2008 8:04 EDT us Christopher Ga MD CHEMISTRY & BLOOD GAS ORDER LYNDSEY Final Result Performing Organization Address [facility] Phone Number [facility] [address] [place] [address] * (ABNORMAL) ELECTROLYTES (10/25/2008 8:04 EDT) Pathologist [facility] Sodium 148(H) 136 - 145 mEq/L [facility] Potassium 3.8 3.5 - 5.0 mEq/L [facility] Chloride 114(H) 96 - 110 mEq/L [facility] CO2 27 24 - 32 mEq/L [facility] Blood specimen (specimen) 10/25/2008 8:04 EDT 10/25/2008 8:04 EDT us Christopher Ga MD CHEMISTRY & BLOOD GAS ORDER LYNDSEY Final Result Performing Organization Address [facility] de Phone Number [facility] [address] [place] [address] * (ABNORMAL) GLUCOSE, SERUM (10/25/2008 4:49 EDT) Pathologist [facility] Glucose, Serum 101(H) 70 - 100 mg/dl [facility] 10/25/2008 4:49 EDT 10/25/2008 4:49 EDT us Christopher Ga MD CHEMISTRY & BLOOD GAS ORDER LYNDSEY Final Result Performing Organization Address [facility] de Phone Number [facility] [address] [place] [address] * POTASSIUM (10/25/2008 4:49 EDT) Potassium 3.7 3.5 - 5.0 mEq/L [facility] 10/25/2008 4:49 EDT 10/25/2008 4:49 EDT us Christopher Ga MD CHEMISTRY & BLOOD GAS ORDER LYNDSEY Final Result Performing Organization Address [facility] Phone Number [facility] [address] [place] [address] * CO2 (10/25/2008 4:49 EDT) CO2 25 24 - 32 mEq/L [facility] 10/25/2008 4:49 EDT 10/25/2008 4:49 EDT us Christopher Ga MD CHEMISTRY & BLOOD GAS ORDER LYNDSEY Final Result Performing Organization Address [facility] de Phone Number [facility] [address] [place] [address] * (ABNORMAL) CHLORIDE (10/25/2008 4:49 EDT) Chloride 115(H) 96 - 110 mEq/L [facility] 10/25/2008 4:49 EDT 10/25/2008 4:49 EDT us Christopher Ga MD CHEMISTRY & BLOOD GAS ORDER LYNDSEY Final Result Performing Organization Address [facility] de Phone Number [facility] [address] [place] [address] * (ABNORMAL) OSMOLALITY (10/25/2008 4:49 EDT) Osmolality Cintia 309(H) 280 - 300 MOS/KG [facility] 10/25/2008 4:49 EDT 10/25/2008 4:49 EDT us Christopher Ga MD CHEMISTRY & BLOOD GAS ORDER LYNDSEY Final Result Performing Organization Address [facility] Phone Number [facility] [address] [place] [address] * (ABNORMAL) SODIUM (10/25/2008 4:49 EDT) Sodium 148(H) 136 - 145 mEq/L [facility] 10/25/2008 4:49 EDT 10/25/2008 4:49 EDT us Christopher Ga MD CHEMISTRY & BLOOD GAS ORDER LYNDSEY Final Result Performing Organization Address [facility] Phone Number [facility] [address] [place] [address] * (ABNORMAL) CREATININE (10/25/2008 4:49 EDT) Pathologist [facility] Creatinine 0.69(L) 0.7 - 1.5 mg/dl [facility] GFR, Calculated >60 ml/min/1.7 3m2 [facility] 10/25/2008 4:49 EDT 10/25/2008 4:49 EDT us Christopher Ga MD CHEMISTRY & BLOOD GAS ORDER LYNDSEY Final Result Performing Organization Address [facility] de Phone Number [facility] [address] [place] [address] * BUN (10/25/2008 4:49 EDT) BUN 10 10 - 26 mg/dl [facility] 10/25/2008 4:49 EDT 10/25/2008 4:49 EDT us Christopher Ga MD CHEMISTRY & BLOOD GAS ORDER LYNDSEY Final Result Performing Organization Address [facility] de Phone Number [facility] [address] [place] [address] * (ABNORMAL) OSMOLALITY,URINE (10/25/2008 3:59 EDT) Osmolality, Ur 143(L) 392 - 1090 MOS/KG [facility] 10/25/2008 3:59 EDT 10/25/2008 3:59 EDT us Christopher Ga MD URINALYSIS ORDERABLES Final Result Performing Organization Address [facility] de Phone Number [facility] [address] [place] [address] * SODIUM, URINE RANDOM (10/25/2008 3:59 EDT) Sodium, Ur <5.0 mEq/L [facility] 10/25/2008 3:59 EDT 10/25/2008 3:59 EDT us Christopher Ga MD URINALYSIS ORDERABLES Final Result Performing Organization Address [facility] de Phone Number [facility] [address] [place] [address] * OSMOLALITY,URINE (10/25/2008 0:15 EDT) Osmolality, Ur 413 392 - 1090 MOS/KG [facility] 10/25/2008 0:15 EDT 10/25/2008 0:15 EDT us Chrisotpher Ga MD URINALYSIS ORDERABLES Final Result Performing Organization Address [facility] de Phone Number [facility] [address] [place] [address] * SODIUM, URINE RANDOM (10/25/2008 0:15 EDT) Sodium, Ur 9.0 mEq/L [facility] 10/25/2008 0:15 EDT 10/25/2008 0:15 EDT us Christopher Ga MD URINALYSIS ORDERABLES Final Result Performing Organization Address [facility] Phone Number [facility] [address] [place] [address] * (ABNORMAL) GLUCOSE, SERUM (10/25/2008 0:15 EDT) Glucose, Serum 113(H) 70 - 100 mg/dl [facility] 10/25/2008 0:15 EDT 10/25/2008 0:15 EDT us Christopher Ga MD CHEMISTRY & BLOOD GAS ORDER LYNDSEY Final Result Performing Organization Address [facility] Phone Number [facility] [address] [place] [address] * (ABNORMAL) OSMOLALITY (10/25/2008 0:15 EDT) Osmolality Cintia 309(H) 280 - 300 MOS/KG [facility] 10/25/2008 0:15 EDT 10/25/2008 0:15 EDT us Christopher Ga MD CHEMISTRY & BLOOD GAS ORDER LYNDSEY Final Result Performing Organization Address [facility] Phone Number [facility] [address] [place] [address] * (ABNORMAL) ELECTROLYTES (10/25/2008 0:15 EDT) Sodium 147(H) 136 - 145 mEq/L [facility] Potassium 3.9 3.5 - 5.0 mEq/L [facility] Chloride 115(H) 96 - 110 mEq/L [facility] CO2 24 24 - 32 mEq/L [facility] 10/25/2008 0:15 EDT 10/25/2008 0:15 EDT us Christopher Ga MD CHEMISTRY & BLOOD GAS ORDER LYNDSEY Final Result Performing Organization Address [facility] Phone Number [facility] [address] [place] [address] * SODIUM, URINE RANDOM (10/24/2008 20:00 EDT) Sodium, Ur 92.0 mEq/L [facility] 10/24/2008 20:0 0 EDT 10/24/2008 20:23 EDT us Christopher Ga MD URINALYSIS ORDERABLES Final Result Performing Organization Address [facility] de Phone Number [facility] [address] [place] [address] * OSMOLALITY,URINE (10/24/2008 20:00 EDT) Osmolality, Ur 594 392 - 1090 MOS/KG [facility] 10/24/2008 20:0 0 EDT 10/24/2008 20:23 EDT us Christopher Ga MD URINALYSIS ORDERABLES Final Result Performing Organization Address [facility] Phone Number [facility] [address] [place] [address] * (ABNORMAL) OSMOLALITY (10/24/2008 20:00 EDT) Osmolality Cintia 319(H) 280 - 300 MOS/KG [facility] 10/24/2008 20:0 0 EDT 10/24/2008 20:20 EDT Christopher Ga MD CHEMISTRY & BLOOD GAS ORDER LYNDSEY Final Result Performing Organization Address [facility] de Phone Number [facility] [address] [place] [address] * SODIUM, URINE RANDOM (10/23/2008 22:30 EDT) Sodium, Ur 70.0 mEq/L [facility] Comment:Sample retested, res ult confirmed 10/23/2008 22:3 0 EDT 10/23/2008 22:33 EDT us Christopher Ga MD URINALYSIS ORDERABLES Final Result Performing Organization Address [facility] de Phone Number [facility] [address] [place] [address] * OSMOLALITY, URINE (10/23/2008 22:30 EDT) Osmolality, Ur 426 392 - 1090 MOS/KG [facility] 10/23/2008 22:3 0 EDT 10/23/2008 22:33 EDT us Christopher Ga MD URINALYSIS ORDERABLES Final Result Performing Organization Address [facility] de Phone Number [facility] [address] [place] [address] * (ABNORMAL) URINALYSIS, CHEMICAL (10/23/2008 22:30 EDT) Color, UA Yellow [facility] Clarity, UA Clear [facility] Glucose, UA Norm NORM [facility] Bilirubin, UA Neg [facility]G [facility] Ketones, UA Neg NEG [facility] Specific [place], Urine 1.015 1.005 - 1.02 [facility] Blood, UA Trace(A) NEG [facility] pH, UA 5.0 5.0 - 9.0 [facility] Protein, UA Neg NEG [facility] Urobilinogen, UA Norm NORM mg/dL [facility] Nitrite, UA Neg NEG [facility] Leuk Esterase Small(A) NEG [facility] 10/23/2008 22:3 0 EDT 10/23/2008 22:34 EDT us Christopher Ga MD URINALYSIS ORDERABLES Final Result Performing Organization Address [facility] de Phone Number [facility] [address] [place] [address] * URINE MICROSCOPIC (10/23/2008 22:30 EDT) WBC, [...] Final Result Performing Organization Address [facility] de Phone Number [facility] [address] [place] [address] * (ABNORMAL) POTASSIUM (10/23/2008 20:49 EDT) Potassium 6.1(HH) 3.5 - 5.0 mEq/L [facility] Comment: Hemolysis may elevate potassium result. Slight hemolysis QNS to repeat 10/23/2008 20:4 9 EDT 10/23/2008 20:54 EDT us Christopher Ga MD CHEMISTRY & BLOOD GAS ORDER LYNDSEY Final Result Performing Organization Address [facility] de Phone Number [facility] [address] [place] [address] * CREATININE (10/23/2008 20:49 EDT) Creatinine 0.80 0.7 - 1.5 mg/dl [facility] Comment:Slight hemolysis GFR, Calculated >60 ml/min/1.7 3m2 [facility] Comment:Slight hemolysis 10/23/2008 20:4 9 EDT 10/23/2008 20:54 EDT us Christopher Ga MD CHEMISTRY & BLOOD GAS ORDER LYNDSEY Final Result Performing Organization Address [facility] Co de Phone Number [facility] [address] [place] [address] * BUN (10/23/2008 20:49 EDT) Pathologist [facility] BUN 13 10 - 26 mg/dl [facility] Comment: Results may be affected due to hemolysis. Slight hemolysis 10/23/2008 20:4 9 EDT 10/23/2008 20:54 EDT us Christopher Ga MD CHEMISTRY & BLOOD GAS ORDER LYNDSEY Final Result Performing Organization Address [facility] de Phone Number [facility] [address] [place] [address] * (ABNORMAL) SODIUM (10/23/2008 20:49 EDT) [facility] Sodium 153(H) 136 - 145 mEq/L [facility] Comment:Slight hemolysis 10/23/2008 20:4 9 EDT 10/23/2008 20:54 EDT us Christopher Ga MD CHEMISTRY & BLOOD GAS ORDER LYNDSEY Final Result Performing Organization Address [facility] de Phone Number [facility] [address] [place] [address] * (ABNORMAL) ELECTROLYTES (10/23/2008 16:00 EDT) [facility] Sodium 150(H) 136 - 145 mEq/L [facility] Potassium 4.0 3.5 - 5.0 mEq/L [facility] Chloride 117(H) 96 - 110 mEq/L [facility] CO2 22(L) 24 - 32 mEq/L [facility] 10/23/2008 16:0 0 EDT 10/23/2008 16:07 EDT us Christopher Ga MD CHEMISTRY & BLOOD GAS ORDER LYNDSEY Final Result Performing Organization Address [facility] de Phone Number [facility] [address] [place] [address] * GLUCOSE, SERUM (10/23/2008 8:45 EDT) [facility] Glucose, Serum 79 70 - 100 mg/dl [facility] 10/23/2008 8:45 EDT 10/23/2008 9:01 EDT us Thad Marroquin MD MSc CHEMISTRY & BLOOD GAS ORDER LYNDSEY Final Result Performing Organization Address [facility] de Phone Number [facility] [address] [place] [address] * CREATININE (10/23/2008 8:45 EDT) Pathologist [facility] Creatinine 0.80 0.7 - 1.5 mg/dl [facility] GFR, Calculated >60 ml/min/1.7 3m2 [facility] 10/23/2008 8:45 EDT 10/23/2008 9:01 EDT Thad Marroquin MD, MSc CHEMISTRY & BLOOD GAS ORDER LYNDSEY Final Result Performing Organization Address [facility] de Phone Number [facility] [address] [place] [address] * BUN (10/23/2008 8:45 EDT) Pathologist [facility] BUN 10 10 - 26 mg/dl [facility] 10/23/2008 8:45 EDT 10/23/2008 9:01 EDT us Thad Marroquin MD, MSc CHEMISTRY & BLOOD GAS ORDER LYNDSEY Final Result Performing Organization Address [facility] de Phone Number [facility] [address] [place] [address] * (ABNORMAL) ELECTROLYTES (10/23/2008 8:45 EDT) Pathologist [facility] Sodium 148(H) 136 - 145 mEq/L [facility] Potassium 3.4(L) 3.5 - 5.0 mEq/L [facility] Chloride 117(H) 96 - 110 mEq/L [facility] CO2 22(L) 24 - 32 mEq/L [facility] 10/23/2008 8:45 EDT 10/23/2008 9:01 EDT us Thad Marroquin MD MSc CHEMISTRY & BLOOD GAS ORDER LYNDSEY Final Result [facility] [address] [place] [address] * (ABNORMAL) HEMAGRAM AND DIFFERENTIAL (10/23/2008 8:45 EDT) WBC 2.96(L) 4.0 - 10.4 K/cmm [facility] RBC 4.48 4.36 - 5.78 M/cmm [facility] Hemoglobin 11.5(L) 13.8 - 17.3 gm/dl [facility] HCT 33.7(L) 39.5 - 50.2 % [facility] MCV 75(L) 81 - 95 fl [facility] MCH 25.6(L) 27.6 - 33.0 pg [facility] MCHC 34.1 32.8 - 36.4 gm/dl [facility] PLT 97(L) 141 - 320 K/cmm [facility] RDW-CV 17.8(H) 11.8 - 14.1 % [...] of Diff: Automated [facility] 10/23/2008 8:45 EDT 10/23/2008 9:01 EDT us Thad Marroquin MD, MSc PACKAGES & DNA PROBE ORDERA BLES Final Result Performing Organization Address [facility] Co de Phone Number [facility] [address] [place] [address] * GLUCOSE, SERUM (10/23/2008 6:15 EDT) Glucose, Serum 80 70 - 100 mg/dl [facility] 10/23/2008 6:15 EDT 10/23/2008 6:35 EDT us Thad Marroquin MD, MSc CHEMISTRY & BLOOD GAS ORDER LYNDSEY Final Result Performing Organization Address [facility] de Phone Number [facility] [address] [place] [address] * CREATININE (10/23/2008 6:15 EDT) Creatinine 0.80 0.7 - 1.5 mg/dl [facility] GFR, Calculated >60 ml/min/1.7 3m2 [facility] 10/23/2008 6:15 EDT 10/23/2008 6:35 EDT us Thad Marroquin MD, MSc CHEMISTRY & BLOOD GAS ORDER LYNDSEY Final Result Performing Organization Address [facility] Co de Phone Number [facility] [address] [place] [address] * BUN (10/23/2008 6:15 EDT) BUN 11 10 - 26 mg/dl [facility] 10/23/2008 6:15 EDT 10/23/2008 6:35 EDT us Thad Marroquin MD, MSc CHEMISTRY & BLOOD GAS ORDER LYNDSEY Final Result Performing Organization Address City/[facility] Co de Phone Number [facility] [address] [place] [address] * (ABNORMAL) ELECTROLYTES (10/23/2008 6:15 EDT) Sodium 146(H) 136 - 145 mEq/L [facility] Potassium 2.6(LL) 3.5 - 5.0 mEq/L [facility] Comment:Sample retested, res ult confirmed Chloride 112(H) 96 - 110 mEq/L [facility] CO2 23(L) 24 - 32 mEq/L [facility] 10/23/2008 6:15 EDT 10/23/2008 6:35 EDT us Thad Marroquin MD MSc CHEMISTRY & BLOOD GAS ORDER LYNDSEY Final Result [facility] [address] [place] [address] * (ABNORMAL) HEMAGRAM AND DIFFERENTIAL (10/23/2008 6:15 EDT) Pathologist [facility] WBC 1.91(L) 4.0 - 10.4 K/cmm [facility] RBC 4.16(L) 4.36 - 5.78 M/cmm [facility] Hemoglobin 10.7(L) 13.8 - 17.3 gm/dl [facility] HCT 31.3(L) 39.5 - 50.2 % [facility] MCV 75(L) 81 - 95 fl [facility] MCH 25.8(L) 27.6 - 33.0 pg [facility] MCHC 34.4 32.8 - 36.4 gm/dl [facility] PLT 107(L) 141 - 320 K/cmm [facility] RDW-CV 18.7(H) 11.8 - 14.1 % [...] ABS Lymphs 0.50(L) 1.09 - 3.30 K/cmm [facility] ABS Monocytes 0.04(L) 0.1 - 0.8 K/cmm [facility] RBC Morphology 1+ [...] Organization Address [facility] Co de Phone Number [facility] [address] [place] [address] * GLUCOSE, GLUCOMETER (10/23/2008 6:02 EDT) Glucose, Fingerstick 89 70 - 100 mg/dl [facility] Installment Account Checker ID [id number] Test Performed by Nursing Services [facility] 10/23/2008 6:02 EDT 10/25/2008 4:28 EDT us Christopher Ga MD CHEMISTRY & BLOOD GAS ORDER LYNDSEY Final Result Performing Organization Address [facility] de Phone Number [facility] [address] [place] [address] * (ABNORMAL) BLOOD GAS, G3 ISTAT (10/23/2008 5:49 EDT) pH, i-STAT 7.39 7.35 - 7.45 [facility] pCO2, i-STAT 35 35 - 45 mmHg [facility] pO2, i-STAT 45(L) 85 - 100 mmHg [facility] TCO2, i-STAT 22 mEq/L [facility] O2 Saturation 81 % [facility] Base Deficit 4 [facility] Temperature 37.0 C [facility] FIO2 .28 [facility] Sample Type VENOUS [facility] 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 [facility] 10/23/2008 5:49 EDT 10/23/2008 5:58 EDT us Thad Marroquin MD, MSc CHEMISTRY & BLOOD GAS ORDER LYNDSEY Final Result Performing Organization Address [facility] de Phone Number [facility] [address] [place] [address] * (ABNORMAL) BLOOD GAS, G3 ISTAT (10/23/2008 2:13 EDT) pH, i-STAT 7.34(L) 7.35 - 7.45 [facility] pCO2, i-STAT 43 35 - 45 mmHg [facility] pO2, i-STAT 81(L) 85 - 100 mmHg [facility] TCO2, i-STAT 24 mEq/L [facility] O2 Saturation 95 % [facility] Base Deficit 3 [facility] Sample Type NOT GIVEN [facility] [place] [place] [id number] Test performed by Chemistry [facility] 10/23/2008 2:13 EDT 10/23/2008 2:19 EDT Result Devorah Marroquin MD, MSc CHEMISTRY & BLOOD GAS ORDER LYNDSEY Final Result Performing Organization Address [facility] de Phone Number [facility] [address] [place] [address] * (ABNORMAL) ELECTROLYTES (10/23/2008 2:00 EDT) Sodium 146(H) 136 - 145 mEq/L [facility] Potassium 3.8 3.5 - 5.0 mEq/L [facility] Chloride 112(H) 96 - 110 mEq/L [facility] CO2 24 24 - 32 mEq/L [facility] 10/23/2008 2:00 EDT 10/23/2008 2:10 EDT us Thad Marroquin MD, MSc CHEMISTRY & BLOOD GAS ORDER LYNDSEY Final Result Performing Organization Address [facility] Co de Phone Number [facility] [address] [place] [address] * ELECTROLYTES (10/23/2008 2:00 EDT) 10/23/2008 2:00 EDT 10/23/2008 2:07 EDT us Thad Marroquin MD MSc CHEMISTRY & BLOOD GAS ORDER LYNDSEY Final Result Performing Organization Address [facility] de Phone Number [facility] [address] [place] [address] * BACTERIAL CULTURE, BLOOD (10/23/2008 2:00 EDT) Specimen Description Blood Right Arm Total volume of blood collected: 6 ml Pediatric bottle received Volume of blood collected may not be adequate for detection of bacteremia/se pticemia. [facility] Result No growth [facility] Report Status Final [id number] [facility] 10/23/2008 2:00 EDT 10/23/2008 7:45 EDT us Thad Marroquin MD MSc MICROBIOLOGY - GENERAL [facility] Final Result Performing Organization Address [facility] de Phone Number [facility] [address] [place] [address] * (ABNORMAL) GLUCOSE, GLUCOMETER (10/22/2008 21:12 EDT) Glucose, Fingerstick 122(H) 70 - 100 mg/dl [facility] Installment Account Checker ID [id number] Test Performed by Nursing Services [facility] 10/22/2008 21:1 2 EDT 10/22/2008 21:23 EDT us Christopher Ga MD CHEMISTRY & BLOOD GAS ORDER LYNDSEY Final Result Performing Organization Address [facility] de Phone Number [facility] [address] [place] [address] * (ABNORMAL) GLUCOSE, SERUM (10/22/2008 18:07 EDT) Glucose, Serum 109(H) 70 - 100 mg/dl [facility] 10/22/2008 18:0 7 EDT 10/22/2008 18:07 EDT us Christopher Ga MD CHEMISTRY & BLOOD GAS ORDER LYNDSEY Final Result Performing Organization Address [facility] de Phone Number [facility] [address] [place] [address] * ELECTROLYTES (10/22/2008 18:07 EDT) Sodium 141 [...] Final Result Performing Organization Address [facility] de Phone Number [facility] [address] [place] [address] * (ABNORMAL) ELECTROLYTES (10/22/2008 11:15 EDT) Sodium [...] Organization Address [facility] de Phone Number [facility] [address] [place] [address] * (ABNORMAL) GLUCOSE, GLUCOMETER (10/22/2008 11:05 EDT) Glucose, Fingerstick 114(H) 70 - 100 mg/dl [facility] Installment Account Checker ID [id number] Test Performed by Nursing Services [facility] 10/22/2008 11:0 5 EDT 10/22/2008 23:16 EDT Thad Marroquin MD MSc CHEMISTRY & BLOOD GAS ORDER LYNDSEY Final Result Performing Organization Address [facility] Co de Phone Number [facility] [address] [place] [address] * (ABNORMAL) ELECTROLYTES (10/22/2008 7:36 EDT) Sodium 134(L) 136 - 145 mEq/L [facility] Potassium 4.5 3.5 - 5.0 mEq/L [facility] Chloride 106 96 - 110 mEq/L [facility] CO2 21(L) 24 - 32 mEq/L [facility] 10/22/2008 7:36 EDT 10/22/2008 7:36 EDT Christopher Ga MD CHEMISTRY & BLOOD GAS ORDER LYNDSEY Final Result Performing Organization Address [facility] de Phone Number [facility] [address] [place] [address] * (ABNORMAL) GLUCOSE, GLUCOMETER (10/22/2008 7:26 EDT) Glucose, Fingerstick 124(H) 70 - 100 mg/dl [facility] Installment Account Checker ID [id number] Test Performed by Nursing Services [facility] 10/22/2008 7:26 EDT 10/22/2008 23:16 EDT Thad Marroquin MD MSc CHEMISTRY & BLOOD GAS ORDER LYNDSEY Final Result Performing Organization Address [facility] Co de Phone Number [facility] [address] [place] [address] * GLUCOSE, SERUM (10/22/2008 3:29 EDT) Glucose, Serum 95 70 - 100 mg/dl [facility] 10/22/2008 3:29 EDT 10/22/2008 3:29 EDT us Christopher Ga MD CHEMISTRY & BLOOD GAS ORDER LYNDSEY Final Result Performing Organization Address [facility] de Phone Number [facility] [address] [place] [address] * (ABNORMAL) PTT (10/22/2008 3:29 EDT) PTT 39(H) 20 - 35 secs [facility] Comment:Therapeutic Heparin range: 60-100 seconds 10/22/2008 3:29 EDT 10/22/2008 3:29 EDT us Christopher Ga MD HEMATOLOGY & PF4 ORDERABLES Final Result Performing Organization Address [facility] Phone Number [facility] [address] [place] [address] * (ABNORMAL) PROTIME (10/22/2008 3:29 EDT) Pro Time 15.4(H) 12.0 - 15.0 secs [facility] I.N.R. 1.2(H) 0.9 - 1.1 Ratio [facility] Comment: Moderate Intensity Coumadin INR = 2.0-3.0 Adjustments in anticoagulant therapy dose should be based upon the INR and NOT the Pro Time. 10/22/2008 3:29 EDT 10/22/2008 3:29 EDT us Christopher Ga MD HEMATOLOGY & PF4 ORDERABLES Final Result Performing Organization Address [facility] de Phone Number [facility] [address] [place] [address] * PHOSPHORUS (10/22/2008 3:29 EDT) Phosphorus 3.6 2.5 - 4.5 mg/dl [facility] 10/22/2008 3:29 EDT 10/22/2008 3:29 EDT us Christopher Ga MD CHEMISTRY & BLOOD GAS ORDER LYNDSEY Final Result Performing Organization Address [facility] de Phone Number [facility] [address] [place] [address] * (ABNORMAL) MAGNESIUM (10/22/2008 3:29 EDT) Magnesium 1.4(L) 1.7 - 2.8 mg/dl [facility] 10/22/2008 3:29 EDT 10/22/2008 3:29 EDT us Christopher Ga MD CHEMISTRY & BLOOD GAS ORDER LYNDSEY Final Result Performing Organization Address [facility] de Phone Number [facility] [address] [place] [address] * (ABNORMAL) CREATININE (10/22/2008 3:29 EDT) Creatinine 0.60(L) 0.7 - 1.5 mg/dl [facility] GFR, Calculated >60 ml/min/1.7 3m2 [facility] 10/22/2008 3:29 EDT 10/22/2008 3:29 EDT us Christopher Ga MD CHEMISTRY & BLOOD GAS ORDER LYNDSEY Final Result Performing Organization Address [facility] de Phone Number [facility] [address] [place] [address] * (ABNORMAL) BUN (10/22/2008 3:29 EDT) BUN 6(L) 10 - 26 mg/dl [facility] 10/22/2008 3:29 EDT 10/22/2008 3:29 EDT us Christopher Ga MD CHEMISTRY & BLOOD GAS ORDER LYNDSEY Final Result Performing Organization Address [facility] Co de Phone Number [facility] [address] [place] [address] * (ABNORMAL) ELECTROLYTES (10/22/2008 3:29 EDT) Sodium 132(L) 136 - 145 mEq/L [facility] Potassium 5.3(H) 3.5 - 5.0 mEq/L [facility] Chloride 105 96 - 110 mEq/L [facility] CO2 21(L) 24 - 32 mEq/L [facility] 10/22/2008 3:29 EDT 10/22/2008 3:29 EDT us Christopher Ga MD CHEMISTRY & BLOOD GAS ORDER LYNDSEY Final Result Performing Organization Address [facility] de Phone Number [facility] [address] [place] [address] * (ABNORMAL) HEMAGRAM (10/22/2008 3:29 EDT) WBC 3.60(L) 4.0 - 10.4 K/cmm [facility] RBC 4.25(L) 4.36 - 5.78 M/cmm [facility] Hemoglobin 10.8(L) 13.8 - 17.3 gm/dl [facility] HCT 31.8(L) 39.5 - 50.2 % [facility] MCV 75(L) 81 - 95 fl [facility] MCH 25.5(L) 27.6 - 33.0 pg [facility] MCHC 34.1 32.8 - 36.4 gm/dl [facility] PLT 111(L) 141 - 320 K/cmm [facility] RDW-CV 17.1(H) 11.8 - 14.1 % [facility] 10/22/2008 3:29 EDT 10/22/2008 3:29 EDT us Christopher Ga MD HEMATOLOGY & PF4 ORDERABLES Final Result Performing Organization Address [facility] de Phone Number [facility] [address] [place] [address] * (ABNORMAL) OSMOLALITY, URINE (10/22/2008 0:43 EDT) Osmolality, Ur 64(L) 392 - 1090 MOS/KG [facility] 10/22/2008 0:43 EDT 10/22/2008 0:43 EDT us Christopher Ga MD URINALYSIS ORDERABLES Final Result Performing Organization Address [facility] de Phone Number [facility] [address] [place] [address] * SODIUM, URINE RANDOM (10/22/2008 0:43 EDT) Pathologist [facility] Sodium, Ur <5.0 mEq/L [facility] 10/22/2008 0:43 EDT 10/22/2008 0:43 EDT us Christopher Ga MD URINALYSIS ORDERABLES Final Result Performing Organization Address [facility] Phone Number [facility] [address] [place] [address] * GLUCOSE, GLUCOMETER (10/22/2008 0:19 EDT) [facility] Glucose, Fingerstick 87 70 - 100 mg/dl [facility] Installment Account Checker ID [id number] Test Performed by Nursing Services [facility] 10/22/2008 0:19 EDT 10/22/2008 23:16 EDT us Thad Marroquin MD MSc CHEMISTRY & BLOOD GAS ORDER LYNDSEY Final Result Performing Organization Address [facility] Phone Number [facility] [address] [place] [address] * (ABNORMAL) OSMOLALITY (10/22/2008 0:00 EDT) [facility] Osmolality Cintia 273(L) 280 - 300 MOS/KG [facility] 10/22/2008 10/22/2008 0:2 2 EDT us Christopher Ga MD CHEMISTRY & BLOOD GAS ORDER LYNDSEY Final Result Performing Organization Address [facility] de Phone Number [facility] [address] [place] [address] * (ABNORMAL) ELECTROLYTES (10/22/2008 0:00 EDT) Sodium 127(L) 136 - 145 mEq/L [facility] Potassium 5.5(H) 3.5 - 5.0 mEq/L [facility] Chloride 101 96 - 110 mEq/L [facility] CO2 21(L) 24 - 32 mEq/L [facility] 10/22/2008 10/22/2008 0:2 2 EDT us Christopher Ga MD CHEMISTRY & BLOOD GAS ORDER LYNDSEY Final Result [facility] [address] [place] [address] documented in this encounter Visit Diagnoses Not on filedocumented in this encounter Care Teams Manager Safe Relationship Specialty Start Date End Date Corin Skinner MD [address] [place] [phone] PCP - General 10/24/08 08/21/09 documented as of this encounter
--- OUTSIDE RECORDS SUMMARY | 2024-07-22 13:41 | XMS_ITS | Encounter Summary ---
Author Organization [facility] Address [address] [place] [address] Care Team Providers Care Electric Installer Name Role Phone Corin Skinner MD Primary Care Provider [phone] Encounter Details Date Type Department Care Team (Latest Contact Info) Description 04/13/2009 11:12 EDT - 04/13/2009 23:59 EDT Hospital Encounter [facility] [address] [place] [address] Maxine Felix, MINING DETAIL DRAFTSPERSON Discharge Disposition: Home or Self Care Social History Tobacco Use Types Packs/Day Years Used Date Smoking Tobacco: Never Assessed Sex and Gender Information Value Date Recorded Sex Assigned at Not on file Legal Sex Male 18:35 EST Gender Identity Not on file Sexual Orientation Not on file documented as of this encounter Discharge Disposition Disposition Code Departure Means Destination Home or Self Long Term documented in this encounter Plan of Treatment Upcoming Encounters Date Type Department Care Team (Late st Contact Info) Description 10/01/2024 13:40 EDT Office Visit [facility] Endocrinology - [facility] [address] [place] [address] Wilder Zaidi, 62 [facility] [address] [place] [address] documented as of this encounter [...] OR DERABLES Final Result Performing Organization Address City/State/[facility] Co de Phone Number [facility] [address] [place] [address] * T4 FREE (04/13/2009 11:41 EDT) Free T4 1.6 0.8 - 1.8 ng/dL [facility] Blood specimen (specimen) 04/13/2009 11:41 EDT 04/13/2009 11:43 EDT Maxine Felix APRN CHEMISTRY & BLOOD GAS OR DERABLES Final Result Performing Organization Address City/[facility] de Phone Number [facility] [address] [place] [address] * (ABNORMAL) OSMOLALITY (04/13/2009 11:41 EDT) Osmolality Cintia 273(L) 280 - 300 MOS/KG [facility] Blood specimen (specimen) 04/13/2009 11:41 EDT 04/13/2009 11:43 EDT Maxine Ugarte Isidro MINING DETAIL DRAFTSPERSON CHEMISTRY & BLOOD GAS OR DERABLES Final Result Performing Organization Address [facility] de Phone Number [facility] [address] [place] [address] * CORTISOL (04/13/2009 11:41 EDT) Pathologist [facility] Cortisol 25 ug/dl [facility] Comment: 7-9a.m.=4.3-22.4 3-5p.m.=3.1-16.7 Blood specimen (specimen) 04/13/2009 11:41 EDT 04/13/2009 11:43 EDT Maxine Felix MINING DETAIL DRAFTSPERSON CHEMISTRY & BLOOD GAS OR DERABLES Final Result Performing Organization Address [facility] de Phone Number [facility] [address] [place] [address] documented in this encounter Visit Diagnoses Not on filedocumented in this encounter Care Teams Electric Installer Relationship Specialty Start Date End Date Corin Skinner MD [address] [place] [phone] PCP - General 10/24/08 2 documented as of this encounter
--- OUTSIDE RECORDS SUMMARY | 2024-07-22 13:41 | XMS_ITS | Encounter Summary ---
Author Organization [facility] Address [address] [place] [address] Care Team Providers Care Photoengraving Printer Name Role Phone Corin Skinner MD Primary Care Provider Encounter Details Date Type Department Care Team (Late st Contact Info) Description 12/07/2008 11:45 EDT - 12/07/2008 23:[address] [facility] [address] [place] [address] [facility] [address] [place] [phone] Discharge Disposition: Home or Self Care Social History Tobacco Use Types Packs/Day Years Used Date Smoking Tobacco: Never Assessed Sex and Gender Information Value Date Recorded Sex Assigned at Not on file Legal Sex Male 18:35 EST Gender Identity Not on file Sexual Orientation Not on file documented as of this encounter Discharge Disposition Disposition Code Departure Means Destination Home or Self Shelter documented in this encounter Plan of Treatment Upcoming Encounters Date Type Department Care Team (Late st Contact Info) Description 10/01/2024 13:40 EDT Office Visit [facility]ology - [facility] [address] [place] [address] Wilder Zaidi, DO 62 [facility] [address] [place] [phone] documented as of this encounter Procedures Procedure Name Priority Date/Time Associated Diagnosis Comments T4 FREE Routine 12/07/2008 12:01 EDT BASIC METABOLIC PANEL (BMP) Routine 12/07/2008 12:01 EDT documented in this encounter Results * T4 FREE (12/07/2008 12:01 EDT) Free T4 1.6 0.8 - 1.8 ng/dL [facility] Blood specimen (specimen) 12/07/2008 12:01 EDT 12/07/2008 12:03 EDT Skyler Edwards [facility] CHEMISTRY & BL OOD GAS ORDERABLES Final Result Performing Organization Address [facility] [[email or web address]] Co de Phone Number [facility] [address] [place] [address] * (ABNORMAL) BASIC METABOLIC PANEL (12/07/2008 12:01 [...] 12:01 EDT 12/07/2008 12:03 EDT Skyler Edwards [facility] CHEMISTRY & BL OOD GAS ORDERABLES Final Result [facility] [address] [place] [address] documented in this encounter Visit Diagnoses Not on filedocumented in this encounter Care Teams Photoengraving Printer Relationship Specialty Start Date End Date Corin Skinner MD [address] [place] [phone] PCP - General 10/24/08 08/21/09 documented as of this encounter
--- OUTSIDE RECORDS SUMMARY | 2024-07-22 13:41 | XMS_ITS | Encounter Summary ---
Author Organization [facility] Address [address] [place] [address] Care Team Providers Care Mold Holder Name Role Phone Corin Skinner MD Primary Care Provider Encounter Details Date Type Department Care Team (Latest Contact Info) Description 12/28/2008 9:53 EDT - 12/28/2008 23:59 EDT Hospital Encounter [facility] [address] [place] [address] Jacqueline Early MD [address] [place] [phone] Discharge Disposition: Home or Self Care [...] Info) Description 10/01/2024 13:40 EDT Office Visit [facility] Endocrinology - [facility] [address] [place], [place] [phone] Wilder Zaidi, 62 [facility] [address] [place] [phone] documented as of this encounter Procedures Procedure [...] NEG [facility] Comment:PER FATHER Specific [place], Urine Unable to obtain specimen 1.005 - 1.02 [facility] Comment:PER FATHER Blood, UA Unable to obtain specimen(A) NEG [facility] Comment:PER FATHER pH, UA Unable to obtain specimen 5.0 - 9.0 [facility] Comment:PER FATHER Protein, UA Unable to obtain specimen(A) NEG [facility] Comment:PER FATHER Urobilinogen, UA Unable to obtain specimen 0.2 - 1.0 mg/dL [facility] Comment:PER FATHER Nitrite, UA Unable to obtain specimen(A) NEG [facility] Comment:PER FATHER Leuk Esterase Unable to obtain specimen(A) NEG [facility] Comment:PER FATHER Urine specimen (specimen) 12/28/2008 11:03 EDT 12/28/2008 11:04 EDT us Jacqueline Early MD URINALYSIS ORDERABLES Final Re sult Performing Organization Address City/[facility]/ZIP Co de Phone Number [facility] [address] [place] [address] * DIRECT BILIRUBIN (12/28/2008 10:01 EDT) Conjugated Bilirubin 0.0 0.0 - 0.3 mg/dl [facility] Unconjugated Bilirubin 0.3 0.1 - 1.1 mg/dl [facility] 12/28/2008 10:0 1 EDT 12/28/2008 10:22 EDT us Jacqueline Early MD CHEMISTRY & BLOOD GAS ORDERABL ES Final Result Performing Organization Address [facility] de Phone Number [facility] [address] [place] [address] * (ABNORMAL) COMPREHENSIVE METABOLIC PANEL (12/28/2008 10:01 EDT) Potassium 4.4 3.5 - 5.0 mEq/L [...] LAB Creatinine 0.69(L) 0.7 - 1.5 mg/dl [facility] GFR, Calculated >60 ml/min/1.7 3m2 [...] ORDERABL ES Final Result Performing Organization Address [facility] de Phone Number [facility] [address] [place] [address] * TESTS ADDED BY PHONE (12/28/2008 10:01 EDT) Tests to be added CMP,DBIL [facility] Diagnosis Code SAME [facility] Who Called [facility] [place] [facility] Read Back/Confirmed ? YES [facility] 12/28/2008 10:0 1 EDT 12/28/2008 10:22 EDT us Jacqueline Early MD CHEMISTRY & BLOOD GAS ORDERABL ES Final Result Performing Organization Address [facility] de Phone Number [facility] [address] [place] [address] * CORTISOL (12/28/2008 10:01 EDT) Cortisol 18 ug/dl [facility] Comment: 7-9a.m.=4.3-22.4 3-5p.m.=3.1-16.7 Blood specimen (specimen) 12/28/2008 10:01 EDT 12/28/2008 10:22 EDT us Jacqueline Early MD CHEMISTRY & BLOOD GAS ORDERABL ES Final Result Performing Organization Address [facility] de Phone Number [facility] [address] [place] [address] * ELECTROLYTES (12/28/2008 10:01 EDT) Sodium 137 [...] ORDERABL ES Final Result Performing Organization Address [facility] Co de Phone Number [facility] [address] [place] [address] * (ABNORMAL) GLUCOSE, SERUM (12/28/2008 10:01 EDT) Glucose, Serum 49(LL) 70 - 100 mg/dl [facility] Comment:Sample retested, res ult confirmed Blood specimen (specimen) 12/28/2008 10:01 EDT 12/28/2008 10:22 EDT us Jacqueline Early MD CHEMISTRY & BLOOD GAS ORDERABL ES Final Result Performing Organization Address [facility] de Phone Number [facility] [address] [place] [address] documented in this encounter Visit Diagnoses Not on filedocumented in this encounter Care Teams Mold Holder Relationship Specialty Start Date End Date Corin Skinner MD [address] [place] [phone] PCP - General 10/24/08 08/21/09 documented as of this encounter
--- OUTSIDE RECORDS SUMMARY | 2024-07-22 13:41 | XMS_ITS | Encounter Summary ---
Author Organization [facility] Address [address] [place] [address] Care Team Providers Care Barrel Washer Name Role Phone Yan Demarco MD Primary Care Provider [phone] Corin Skinner MD Primary Care Provider [phone] Akil Serrano MD Primary Care Provider [phone] Yossi Torres MD Primary Care Provider [phone]- [phone] Emilee Cody MD Primary Care Provider + Ren Vaz MD Primary Care Provider [phone] Encounter Details Date Type Department Care Team (Late st Contact Info) Description 10/22/2008 Before PRISM Converted Visit (Maple) [facility] - Maple conversion [address] [place] [address] Christopher Ga MD [address] [place] [phone] Social History Tobacco Use Types Packs/Day [...] 10/01/2024 13:40 EDT Office Visit [facility] Endocrinology - [address] [phone] Wilder Zaidi, DO 62 [facility] [address] [place] [address] documented as of this encounter [...] Christopher Ga MD [facility] DIAGNOSTIC IMAGING ORDEmerald HANNON Final Result documented in this encounter Visit Diagnoses Not on filedocumented in this encounter Care Teams Barrel Washer Relationship Specialty Start Date End Date Yan Demarco MD [address] [place] [phone] PCP - General 08/22/09 02/20/10 Corin Skinner MD [address] [place] [phone] PCP - General 10/24/08 08/21/09 Akil Serrano MD 74 [facility] [address] [place], [place] [phone] PCP - General 02/21/10 04/16/11 Yossi Torres MD [address] [place] [phone] PCP - General 04/17/11 03/14/16 Emilee Cody MD [address] [place] [phone] PCP - General 03/15/16 09/29/18 Ren Vaz MD [address] [place] [phone] PCP - General 09/30/18 documented as of this encounter
--- OUTSIDE RECORDS SUMMARY | 2024-07-22 13:41 | XMS_ITS | Encounter Summary ---
Author Organization [facility] Address [address] [place] [address] Care Team Providers Care Manufacturing Test Technician Name Role Phone Yan Demarco MD Primary Care Provider [phone] Corin Skinner MD Primary Care Provider [phone] Akil Serrano MD Primary Care Provider [phone] Yossi Torres MD Primary Care Provider [phone]- [phone] Emilee Cody MD Primary Care Provider + Ren Vaz MD Primary Care Provider [phone] Encounter Details Date Type Department Care Team (Late st Contact Info) Description 10/23/2008 Before PRISM Converted Visit (Maple) [facility] Pediatric Primary Care [address] [phone] Aisha Otero MD [address] [facility], [facility], [place], [address] [place] [address] Social History Tobacco Use Types [...] Office Visit [facility] End[place]ology - [place] [address] [place], [place] [phone] Shonjalyn Wilder Erik, DO [address] [place] [address] documented as of this encounter [...] filedocumented in this encounter Care Teams Manufacturing Test Technician Relationship Specialty Start Date End Date Yan Demarco MD [address] [place] [address] PCP - General 08/22/09 02/20/10 Corin Skinner MD [address] [place] [phone] PCP - General 10/24/08 08/21/09 Akil Serrano MD 74 [facility] [address] [place], [place] [phone] PCP - General 02/21/10 04/16/11 Yossi Torres MD [address] [place] [phone] PCP - General 04/17/11 03/14/16 Emilee Cody MD [address] [place], [place] [phone] PCP - General 03/15/16 09/29/18 Ren Vaz MD [address] [place] [phone] PCP - General 09/30/18 documented as of this encounter
--- OUTSIDE RECORDS SUMMARY | 2024-07-22 13:42 | XMS_ITS | Encounter Summary ---
Author Organization [facility] Address [address] [place] [address] Care Team Providers Care Newborn Photographer Name Role Phone Corin Skinner MD Primary Care Provider Encounter Details Date Type Department Care Team (Late st Contact Info) Description 10/21/2008 Before PRISM Converted Visit (Maple) [facility] - Maple conversion [address] [place], [place] [address] Christopher Ga MD [address] [place] [phone] Social History Tobacco Use Types Packs/Day [...] Info) Description 10/01/2024 13:40 EDT Office Visit [facility] Endocrinology - [facility] [address] [place] [address] Wilder Zaidi DO 62 [facility] [address] [place] [address] documented as of this encounter Procedures Procedure Name Priority Date/Time Associated Diagnosis Comments SODIUM, URINE RANDOM Routine 10/21/2008 21:00 EDT documented in this encounter Results * SODIUM, URINE RANDOM (10/21/2008 21:00 EDT) Sodium, Ur <5.0 mEq/L [facility] 10/21/2008 21:0 0 EDT 10/21/2008 21:16 EDT us Christopher Ga MD URINALYSIS ORDERABLES Final Result Performing Organization Address City/State/[facility] Co de Phone Number [facility] [address] [place] [address] documented in this encounter Visit Diagnoses Not on filedocumented in this encounter Care Teams Newborn Photographer Relationship Specialty Start Date End Date Corin Skinner MD [address] [place] [phone] PCP - General 10/24/08 08/21/09 documented as of this encounter
--- OUTSIDE RECORDS SUMMARY | 2024-07-22 13:42 | XMS_ITS | Encounter Summary ---
Author Organization [facility] Address [address] [place] [address] Care Team Providers Care Upper And Bottom Lacer Hand Name Role Phone Corin Skinner MD Primary Care Provider [phone] Encounter Details Date Type Department Care Team (Late st Contact Info) Description 10/21/2008 Before PRISM Converted Visit (Maple) [facility] - Maple conversion [address] [place] [address] Emergency, MD Diya Social History Tobacco Use [...] Info) Description 10/01/2024 13:40 EDT Office Visit [facility] Endocrinology - [facility] [place] [facility] [address] [place] [address] Wilder Zaidi, DO 62 [facility] [address] [place] [address] documented as of this encounter Procedures Procedure Name Priority Date/Time Associated Diagnosis Comments OSMOLALITY Routine 10/21/2008 17:54 EDT documented in this encounter Results * (ABNORMAL) OSMOLALITY (10/21/2008 17:54 EDT) Osmolality Cintia 258(L) 280 - 300 MOS/KG [facility] 10/21/2008 17:5 4 EDT 10/21/2008 17:54 EDT us Default Emergency MD CHEMISTRY & BLOOD GAS ORDER LYNDSEY Final Result Performing Organization Address City/State/[facility] Co de Phone Number [facility] [address] [place] [address] documented in this encounter Visit Diagnoses Not on filedocumented in this encounter Care Teams Upper And Bottom Lacer Hand Relationship Specialty Start Date End Date Corin Skinner MD [address] [place] [phone] PCP - General 10/24/08 08/21/09 documented as of this encounter
--- OUTSIDE RECORDS SUMMARY | 2024-07-22 13:42 | XMS_ITS | Encounter Summary ---
Author Organization [facility] Address [address] [place] [address] Care Team Providers Care Manufacturer'S Service Representative Name Role Phone Corin Skinner MD Primary Care Provider [phone] Encounter Details Date Type Department Care Team (Late st Contact Info) Description 10/21/2008 Before PRISM Converted Visit (Maple) [facility] - Maple conversion [address] [place] [address] Emergency, MD Diya Social History Tobacco Use [...] EDT Office Visit [facility] Endocrinology - [facility] [address] [place] [address] Wilder Zaidi, DO 62 [facility] [address] [place] [address] documented as of this [...] PF4 ORDERABLES Final Result Performing Organization Address City/State/[facility] Co de Phone Number [facility] [address] [place] [address] documented in this encounter Visit Diagnoses Not on filedocumented in this encounter Care Teams Manufacturer'S Service Representative Relationship Specialty Start Date End Date Corin Skinner MD [address] [place] [phone] PCP - General 10/24/08 08/21/09 documented as of this encounter
--- OUTSIDE RECORDS SUMMARY | 2024-07-22 13:42 | XMS_ITS | Encounter Summary ---
Author Organization [facility] Address [address] [place] [address] Care Team Providers Care Overhead Worker Name Role Phone Unavailable Primary Care Provider Unavailabl e Encounter Details Date Type Department Care Team (Late st Contact Info) Description 06/11/2008 11:00 EST - 06/11/2008 11:59 EST Hospital Encounter [facility] [address] [place] [address] [facility] [address] [place] [phone] Discharge Disposition: Auto Discharge Social History Tobacco [...] [facility] - [facility] [address] [place] [address] Wilder Zaidi, DO 62 [facility] [address] [place] [address] documented as [...] PTT 34 20 - 35 secs [facility] Comment:Therapeutic Heparin range: 60-100 seconds 07/03/2008 16:0 0 EST 07/03/2008 16:07 EST Default Emergency MD HEMATOLOGY & PF4 ORDERABLES Final Result Performing Organization Address [facility] de Phone Number [facility] [address] [place] [address] * (ABNORMAL) PROTIME (07/03/2008 16:00 EST) Pro Time 15.3(H) 12.0 - 15.0 secs [facility] I.N.R. 1.2(H) 0.9 - 1.1 Ratio [facility] Comment: Moderate Intensity Coumadin INR = 2.0-3.0 Adjustments in anticoagulant therapy dose should be based upon the INR and NOT the Pro Time. 07/03/2008 16:0 0 EST 07/03/2008 16:07 EST Default Emergency HEMATOLOGY & PF4 ORDERABLES Final Result Performing Organization Address [facility] de Phone Number [facility] [address] [place] [address] * (ABNORMAL) BLOOD GAS, G3 ISTAT (07/03/2008 15:23 EST) pH, i-STAT 7.22(L) 7.35 - 7.45 [facility] pCO2, i-STAT 63(H) 35 - 45 mmHg [facility] pO2, i-STAT 33(L) 85 - 100 mmHg [facility] TCO2, i-STAT 27 mEq/L [facility] O2 Saturation 51 % [facility] Base Deficit 4 [facility] Sample Type NOT GIVEN [facility] [place] [id number] Test performed by Chemistry [facility] 07/03/2008 15:2 3 EST 07/03/2008 15:28 EST us Rachanagene Robb MD CHEMISTRY & BLOOD GAS ORDERABLES Final Result Performing Organization Address [facility] Co de Phone Number [facility] [address] [place] [address] * (ABNORMAL) LACTIC ACID (07/03/2008 15:05 EST) Pathologist [facility] Lactic Acid 3.0(H) 0.7 - 2.1 mmol/L [facility] 07/03/2008 15:0 5 EST 07/03/2008 15:19 EST us Default Emergency CHEMISTRY & BLOOD GAS ORDER LYNDSEY Final Result Performing Organization Address [facility] de Phone Number [facility] [address] [place] [address] * (ABNORMAL) GLUCOSE, SERUM (07/03/2008 15:05 EST) Glucose, Serum 69(L) 70 - 100 mg/dl [facility] Comment:Heparinized plasma. 07/03/2008 15:0 5 EST 07/03/2008 15:13 EST us Default Emergency CHEMISTRY & BLOOD GAS ORDER LYNDSEY Final Result Performing Organization Address [facility] de Phone Number [facility] [address] [place] [address] * CREATININE (07/03/2008 15:05 EST) Creatinine 0.80 0.7 - 1.5 mg/dl [facility] Comment:Heparinized plasma. GFR, Calculated >60 ml/min/1.7 3m2 [facility] Comment:Heparinized plasma. 07/03/2008 15:0 5 EST 07/03/2008 15:13 EST Default Emergency MD CHEMISTRY & BLOOD GAS ORDER LYNDSEY Final Result Performing Organization Address [facility] Phone Number [facility] [address] [place] [address] * BUN (07/03/2008 15:05 EST) BUN 14 10 - 26 mg/dl [facility] Comment:Heparinized plasma. 07/03/2008 15:0 5 EST 07/03/2008 15:13 EST Default Emergency MD CHEMISTRY & BLOOD GAS ORDER LYNDSEY Final Result Performing Organization Address [facility] Phone Number [facility] [address] [place] [address] * ELECTROLYTES (07/03/2008 15:05 EST) Sodium 145 [...] ORDER LYNDSEY Final Result Performing Organization Address [facility] Phone Number [facility] [address] [place] [address] * (ABNORMAL) HEMAGRAM AND DIFFERENTIAL (07/03/2008 15:05 EST) WBC 4.29 4.0 - 10.4 K/cmm [facility] RBC 5.54 4.36 - 5.78 M/cmm [facility] Hemoglobin 15.2 13.8 - 17.3 gm/dl [facility] HCT 45.1 39.5 - 50.2 % [facility] MCV 81 81 - 95 fl [facility] MCH 27.4(L) 27.6 - 33.0 pg [facility] MCHC 33.7 32.8 - 36.4 gm/dl [facility] PLT 145 141 - 320 K/cmm [facility] RDW-CV 19.1(H) 11.8 - 14.1 % [facility] Neutrophils 81.3(H) 45.5 - 79.7 % [...] Type of Diff: Automated [facility] 07/03/2008 15:0 5 EST 07/03/2008 15:13 EST us Default Emergency MD PACKAGES & DNA PROBE ORDERA BLES Final Result [facility] [address] [place] [address] * PORTABLE CHEST 1 VIEW (07/03/2008 14:52 [...] Note Leticia Solomon MD / Marlene Mensah, [facility] - 11/21/2008 Patient has cough, shortness of [...] above interpretation and agree with the findings. Shoal Wolf MD [facility] DIAGNOSTIC IMAGING [place]Emerald HANNON Final Result * ELECTROLYTES (06/11/2008 11:11 [...] ORDERABLES Final Result [facility] [address] [place] [address] documented in this encounter Visit Diagnoses Not on filedocumented in this encounter
--- OUTSIDE RECORDS SUMMARY | 2024-07-22 13:42 | XMS_ITS | Encounter Summary ---
Author Organization [facility] Address [address] [place] [address] Care Team Providers Care Bdc Manager Name Role Phone Corin Skinner MD Primary Care Provider +1- [phone] Encounter Details Date Type Department Care Team (Late st Contact Info) Description 10/21/2008 Before PRISM Converted Visit (Maple) [facility] - Maple conversion [address] [place] [address] Emergency, MD Diya Social History Tobacco Use [...] EDT Office Visit [facility] Endocrinology - [facility] [address] [place] [address] Wilder Zaidi, DO 62 [facility] [address] [place] [address] documented as of this encounter [...] Final Result Performing Organization Address City/State/[facility] Co de Phone Number [facility] [address] [place] [address] documented in this encounter Visit Diagnoses Not on filedocumented in this encounter Care Teams Bdc Manager Relationship Specialty Start Date End Date Corin Skinner MD [address] [place] [phone] PCP - General 10/24/08 08/21/09 documented as of this encounter
--- OUTSIDE RECORDS SUMMARY | 2024-07-22 13:42 | XMS_ITS | Encounter Summary ---
Author Organization [facility] Address [address] [place] [address] Care Team Providers Care Survey Technician Name Role Phone Corin Skinner MD Primary Care Provider +1- [phone] Encounter Details Date Type Department Care Team (Late st Contact Info) Description 10/21/2008 Before PRISM Converted Visit (Maple) [facility] - Maple conversion [address] [place] [address] Emergency, MD Diya Social History Tobacco Use [...] 10/01/2024 13:40 EDT Office Visit [facility] Endocrinology - [facility] [address] [place] [address] Wilder Zaidi, DO 62 [facility] [address] [place] [address] documented as of this [...] ORDER LYNDSEY Final Result Performing Organization Address City/State/[facility] Co de Phone Number [facility] [address] [place] [address] documented in this encounter Visit Diagnoses Not on filedocumented in this encounter Care Teams Survey Technician Relationship Specialty Start Date End Date Corin Skinner MD [address] [place] [phone] PCP - General 10/24/08 08/21/09 documented as of this encounter
--- OUTSIDE RECORDS SUMMARY | 2024-07-22 13:42 | XMS_ITS | Encounter Summary ---
Author Organization [facility] Address [address] [place] [address] Care Team Providers Care Ruby Rails Developer Name Role Phone Corin Skinner MD Primary Care Provider [phone]- [phone] Encounter Details Date Type Department Care Team (Late st Contact Info) Description 10/21/2008 Before PRISM Converted Visit (Maple) [facility] - Maple conversion [address] [place] [address] Emergency, MD Diya Social History Tobacco Use [...] 10/01/2024 13:40 EDT Office Visit [facility] Endocrinology - [facility] [address] [place] [address] Wilder Zaidi, DO 62 [facility] [address] [place] [address] documented [...] BLOOD GAS ORDER LYNDSEY Final Result [facility] [address] [place] [address] documented in this encounter Visit Diagnoses Not on filedocumented in this encounter Care Teams Ruby Rails Developer Relationship Specialty Start Date End Date Corin Skinner MD [address] [place] [phone] PCP - General 10/24/08 08/21/09 documented as of this encounter
--- OUTSIDE RECORDS SUMMARY | 2024-07-22 13:42 | XMS_ITS | Encounter Summary ---
Author Organization [facility] Address [address] [place] [address] Care Team Providers Care Miller Supervisor Name Role Phone Unavailable Primary Care Provider Unavailabl e Encounter Details Date Type Department Care Team (Late st Contact Info) Description 08/13/2008 14:44 EST - 08/14/2008 11:59 EST Hospital Encounter [facility] [address] [place] [address] Summer Parr MD 111 [facility], [address] [address] Slava Pineda MD Discharge Disposition: [...] 12/14/2008 0820 EDT HISS DISCHARGE SUMMARY ADDRESS: [address] [place] [address] PHONE: [phone] ATTENDING PHYSICIAN: SUMMER PARR MD ADDRESS: [place] [address] [address] [place] [address] PHONE: [phone] REFERRING PHYSICIAN: ANCELMO MICHAEL MD [facility] [address] [place] [address] PHONE: [phone] ADMISSION DATE: 08/13/08 SERVICE: PED. MEDICINE TRANSFER TO IP: DISCHARGE DATE: 08/14/08 SERVICE: PED. 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 CONDITION AT DISCHARGE: Stable DISPOSITION AT DISCHARGE: Home without home health services - Nursing, PT, OT, DOOR FRAME ASSEMBLER MACHINE ALLERGIES: The following allergies were reported by [...] 9) POTASSIUM CHLORIDE / (kcl ext-rel tab (shelter)) 30MEQ EXTENDED RELEASE TABLET, 3 TIMES A DAY, BY MOUTH MEDICATIONS YOU WERE TAKING PRIOR TO ADMISSION THAT SHOULD BE STOPPED: NONE HERBAL REMEDIES, NUTRITIONAL SUPPLEMENTS, AND OJCO-OZR-BVCOPHG MEDICATIONS that have not been prescribed by a physician may have significant adverse side effect or may interfere with the medications that have been prescribed for you. If you are taking herbal remedies, nutritional supplements, or ifgr-til-jvaocwf medications you are strongly encouraged to discontinue [...] JOHAN PARIKH MD P - ZOHDocument ID: [id number] documented in this encounter Discharge Disposition Disposition Code Departure Means Destination Home or Self Care documented in this encounter Plan of Treatment Upcoming Encounters Date Type Department Care Team (Late st Contact Info) Description 10/01/2024 13:40 EDT Office Visit [facility] Endocrinology - [place] [address] [place], [place] [phone] Wilder Zaidi, DO [address] [facility] [address] [place] [address] documented as of this encounter [...] Performing Organization Address [facility] de Phone Number [facility] [address] [place] [address] * BUN (08/14/2008 6:00 EST) BUN 14 10 - 26 mg/dl [facility] Comment:Heparinized plasma. 08/14/2008 6:00 EST 08/14/2008 9:43 EST Summer Parr MD CHEMISTRY & BLOOD GAS ORDERABLE S Final Result Performing Organization Address [facility] Co de Phone Number [facility] [address] [place] [address] * (ABNORMAL) ELECTROLYTES (08/14/2008 6:00 EST) Sodium 150(H) 136 - 145 mEq/L [facility] Comment:Heparinized plasma. Potassium 5.2(H) 3.5 - 5.0 mEq/L [facility] Comment:Heparinized plasma. Chloride 117(H) 96 - 110 mEq/L [facility] Comment:Heparinized plasma. CO2 19(L) 24 - 32 mEq/L [facility] Comment:Heparinized plasma. 08/14/2008 6:00 EST 08/14/2008 9:43 EST us Summer Parr MD CHEMISTRY & BLOOD GAS ORDERABLE S Final Result [facility] [address] [place] [address] documented in this encounter Visit Diagnoses Not on filedocumented in this encounter
--- OUTSIDE RECORDS SUMMARY | 2024-07-22 13:42 | XMS_ITS | Encounter Summary ---
Author Organization [facility] Address [address] [place] [address] Care Team Providers Care Dry Cleaner Helper Name Role Phone Corin Skinner MD Primary Care Provider Encounter Details Date Type Department Care Team (Late st Contact Info) Description 08/13/2008 Office Visit [facility] - Maple conversion [address] [place] [address] Slava Pineda MD Social History Tobacco Use [...] Addenda for MIGUEL ANGEL BURGOS JR VisitID: [id number] Date: 08/13/2008 08/13/2008 10:30 Dr. Amaro refers [...] grand mal seizure. ). No fever. Treatment DEMONSTRATOR SEWING TECHNIQUES: None. PAST HX: (traumatic brain injury, seizures). [...] 5 mL normal saline; (right FA by RECORDS MANAGEMENT DIRECTOR, rainbow to lab (first attempt unsuccessful by RECORDS MANAGEMENT DIRECTOR in right AC)). --1259 Nyasia Morelos R.N., [place] IV bag #1 of 500 mL NS; rate = wide open. --1441 Rachel Reynolds R.N., [place] IV fluids discontinued. IV bag #1. INTAKE: 500 mL. --1545 Lucille Carlson R.N.. DISPOSITION / DISCHARGE Report was given (Latrice ROMERO). Transported via stretcher by [facility] with IV. Admitted to pediatrics. --1546 Lucille Carlson R.N.. Kathy Gold R.N. Anabelle Perez R.N. Lucille Carlson R.N. Nyasia Morelos R.N., [place] Rachel Reynolds R.N., [place] Locked/Released at 08/13/2008 16:08 by Lucille Carlson R.N. documented in this encounter Plan of Treatment Upcoming Encounters Date Type Department Care Team (Late st Contact Info) Description 10/01/2024 13:40 EDT Office Visit [facility] Endocrinology - [facility] [address] [place], [place] [phone] Wilder Zaidi, 62 [facility] [address] [place] [address] documented as of this encounter Visit Diagnoses Not on filedocumented in this encounter Care Teams Dry Cleaner Helper Relationship Specialty Start Date End Date Corin Skinner MD [address] [place] [phone] PCP - General 10/24/08 08/21/09 documented as of this encounter
--- OUTSIDE RECORDS SUMMARY | 2024-07-22 13:42 | XMS_ITS | Encounter Summary ---
Author Organization [facility] Address [address] [place] [address] Care Team Providers Care Fishing Tool Technician Oil Well Name Role Phone Corin Skinner MD Primary Care Provider [phone]- [phone] Encounter Details Date Type Department Care Team (Late st Contact Info) Description 07/11/2008 Before PRISM Converted Visit (Maple) [facility] - Maple conversion [address] [place] [address] Lc Cheng MD 111 [facility], [address] [place] [address] Social History Tobacco Use Types [...] Edwards MD [facility] [address] [place] [address] Edwards; The father of 18-year-old [...] Lc Cheng MD - C[place] Job ID: [id number] Doc ID: [id number] cc: MD Skyler Singh MD documented in this encounter Plan of Treatment Upcoming Encounters Date Type Department Care Team (Late st Contact Info) Description 10/01/2024 13:40 EDT Office Visit [facility] Endocrinology - [facility] [address] [place] [address] Wilder Zaidi, DO 62 [facility] [address] [place] [address] documented as of this encounter Visit Diagnoses Not on filedocumented in this encounter Care Teams Fishing Tool Technician Oil Well Relationship Specialty Start Date End Date Corin Skinner MD [address] [place] [phone] PCP - General 10/24/08 08/21/09 documented as of this encounter
--- OUTSIDE RECORDS SUMMARY | 2024-07-22 13:42 | XMS_ITS | Encounter Summary ---
Author Organization [facility] Address [address] [place] [address] Care Team Providers Care Cheese Specialist Name Role Phone Unavailable Primary Care Provider Unavailabl e Encounter Details Date Type Department Care Team (Late st Contact Info) Description 07/11/2008 10:40 EST Hospital Encounter [facility] [address] [place] [address] Skyler Edwards, [facility] [address] [place] [phone] Lc Cheng MD 111 [facility], [address] [place] [phone] Social History Tobacco Use Types Packs/Day Years [...] Info) Description 10/01/2024 13:40 EDT Office Visit [facility] Endocrinology - [address] [address] Wilder Zaidi, DO [address] [address] documented as of this encounter Visit Diagnoses Not on filedocumented in this encounter
--- OUTSIDE RECORDS SUMMARY | 2024-07-22 13:42 | XMS_ITS | Encounter Summary ---
Author Organization [facility] Address [address] [place] [address] Care Team Providers Care Machinist Set Up Name Role Phone Corin Skinner MD Primary Care Provider Encounter Details Date Type Department Care Team (Late st Contact Info) Description 10/21/2008 Before PRISM Converted Visit (Maple) [facility] - Maple conversion [address] [place], [place] [address] Christopher Ga MD [address] [place] [phone] Social History Tobacco Use Types Packs/Day [...] Description 10/01/2024 13:40 EDT Office Visit [facility] Endocrinology - [facility] [address] [place] [address] Wilder Zaidi DO 62 [facility] [address] [place] [address] documented as of this encounter [...] 24 - 32 mEq/L [facility] 10/21/2008 21:0 0 EDT 10/21/2008 21:17 EDT us Christopher Ga MD CHEMISTRY & BLOOD GAS ORDER LYNDSEY Final Result [facility] [address] [place] [address] documented in this encounter Visit Diagnoses Not on filedocumented in this encounter Care Teams Machinist Set Up Relationship Specialty Start Date End Date Corin Skinner MD [address] [place] [phone] PCP - General 10/24/08 08/21/09 documented as of this encounter
--- OUTSIDE RECORDS SUMMARY | 2024-07-22 13:42 | XMS_ITS | Encounter Summary ---
Author Organization [facility] Address [address] [place] [address] Care Team Providers Care Philosophy Faculty Name Role Phone Corin Skinner MD Primary Care Provider [phone] Encounter Details Date Type Department Care Team (Late st Contact Info) Description 10/21/2008 Before PRISM Converted Visit (Maple) [facility] - [place] conversion [address] [place], [place] [address] Christopher Ga MD [address] [place] [phone] Social History Tobacco Use Types Packs/Day [...] EDT Office Visit [facility] Endocrinology - [facility] [address] [place] [address] Wilder Zaidi DO 62 [facility] [address] [place] [address] documented as [...] URINALYSIS ORDERABLES Final Result Performing Organization Address City/State/[facility] Co de Phone Number [facility] [address] [place] [address] documented in this encounter Visit Diagnoses Not on filedocumented in this encounter Care Teams Philosophy Faculty Relationship Specialty Start Date End Date Corin Skinner MD [address] [place] [phone] PCP - General 10/24/08 08/21/09 documented as of this encounter
--- OUTSIDE RECORDS SUMMARY | 2024-07-22 13:42 | XMS_ITS | Encounter Summary ---
Author Organization [facility] Address [address] [place] [address] Care Team Providers Care Core Cleaner Name Role Phone Corin Skinner MD Primary Care Provider Encounter Details Date Type Department Care Team (Late st Contact Info) Description 10/21/2008 Before PRISM Converted Visit (Maple) [facility] - Maple conversion [address] [place], [place] [address] Christopher Ga MD [address] [place] [phone] Social History Tobacco Use Types Packs/Day [...] Info) Description 10/01/2024 13:40 EDT Office Visit [facility] Endocrinology - [facility] [address] [place] [address] Wilder Zaidi DO 62 [facility] [address] [place] [address] documented as of this encounter Procedures Procedure Name Priority Date/Time Associated Diagnosis Comments SMEAR REVIEW Routine 10/21/2008 22:35 EDT documented in this encounter Results * SMEAR REVIEW (10/21/2008 22:35 EDT) Platelet Morphology 1+ Large platelets [facility] 10/21/2008 22:3 5 EDT 10/21/2008 22:35 EDT us Christopher Ga MD HEMATOLOGY & PF4 ORDERABLES Final Result [facility] [address] [place] [address] documented in this encounter Visit Diagnoses Not on filedocumented in this encounter Care Teams Core Cleaner Relationship Specialty Start Date End Date Corin Skinner MD [address] [place] [phone] PCP - General 10/24/08 08/21/09 documented as of this encounter
--- OUTSIDE RECORDS SUMMARY | 2024-07-22 13:42 | XMS_ITS | Encounter Summary ---
Author Organization [facility] Address [address] [place] [address] Care Team Providers Care Animal Treatment Investigator Name Role Phone Yan Demarco MD Primary Care Provider [phone] Corin Skinner MD Primary Care Provider [phone] Encounter Details Date Type Department Care Team (Late st Contact Info) Description 10/21/2008 Office Visit [facility] - Map conversion [address] [place] [address] Slava Pineda MD Social History Tobacco Use [...] 3 days of decreased MS. sent from [facility] after being found hyponatremic and hypothermic has [...] gm. Pt received stress dose steroid at [facility] (D10 at 60 cc/hr). . Critical care [...] Addenda for MIGUEL ANGEL BURGOS JR VisitID: [id number] Date: 10/21/2008 10/21/2008 14:[address] JUAREZ. PT COMING BY AMBULANCE FROM [facility] FOR ED EVAL. PAGE PED ON ARRIVAL. signed by Landy Garcia 10/21/2008 14:56) 10/21/2008 15:[address] ONTIVEROS. PT COMING FROM [facility]. HYPOTHERMIC R TEMP 87.4 HYPONAUTREMIC NA 120. [...] Philippe Healy R.N. Acuity: LEVEL 2. --1703 Philpipe Healy R.N.. Medications (Dessmopressin 4mcg SC BID, Hydrocotisone 5mg noon and donna: 10mg in am, Levothyroxine 0.2mg daily, Modafinil 200mg daily, MVI adult done daily,KDUR 20meq TID, Quetiapine 400mg daily, Ranitidine 150mgdaily, Temazepam 15mg daily, Zonegran 50mg daily.). --1703 Philippe Healy R.N.. Allergies (Lopid). --1703 Philippe Healy R.N.. History This started today. (unable to determine as pt unresponsive). Treatment KALSOMINER: (Solucortef 100mg IV). Arrived by EMS. Historian: EMS. (Pt presented to [facility] ED with hypotension/ hypothermia and unresponsive. Pt transfered to [facility] ED for pediatric/ neuro consult.). --1638 [...] morse catheter attached to bedside drainage bag (KALSOMINER). (Dr. Pineda at bedside to assess pt. [...] --1712 Philippe Healy R.N. (EKG performed by [facility], showed to Dr. Pineda.). --1713 Philippe Healy [...] X 8 cm irregular light brown bruise [id number] diameter darker brown bruise #3. (no standard) [...] (follow up phone call to Domonique at [facility] confirming that photographs have been taken and [...] Philippe Healy R.N.. Kaylie Thakur R.N., R.N., [facility] Locked/Released at 10/22/2008 7:44 by Anabelle Perez R.N. documented in this encounter Plan of Treatment Upcoming Encounters Date Type Department Care Team (Late st Contact Info) Description 10/01/2024 13:40 EDT Office Visit [facility] Endocrinology - [facility] [address] [place], [place] [phone] Wilder Zaidi, [address] [facility] [address] [place] [phone] documented as of this encounter Visit Diagnoses Not on filedocumented in this encounter Care Teams Animal Treatment Investigator Relationship Specialty Start Date End Date Yan Demarco MD [address] [place] [phone] PCP - General 08/22/09 02/20/10 Corin Skinner MD [address] [place] [phone] PCP - General 10/24/08 08/21/09 documented as of this encounter
--- OUTSIDE RECORDS SUMMARY | 2024-07-22 13:42 | XMS_ITS | Encounter Summary ---
Author Organization [facility] Address [address] [place] [address] Care Team Providers Care Noodle Maker Name Role Phone Corin Skinner MD Primary Care Provider Encounter Details Date Type Department Care Team (Late st Contact Info) Description 10/21/2008 Before PRISM Converted Visit (Maple) [facility] - Maple conversion [address] [place], [place] [address] Christopher Ga MD [address] [place] [phone] Social History Tobacco Use Types Packs/Day [...] Info) Description 10/01/2024 13:40 EDT Office Visit [facility] Endocrinology - [facility] [address] [place] [address] Wilder Zaidi DO 62 [facility] [address] [place] [address] documented as [...] PF4 ORDERABLES Final Result Performing Organization Address City/State/[facility] Co de Phone Number [facility] [address] [place] [address] documented in this encounter Visit Diagnoses Not on filedocumented in this encounter Care Teams Noodle Maker Relationship Specialty Start Date End Date Corin Skinner MD [address] [place] [phone] PCP - General 10/24/08 08/21/09 documented as of this encounter
--- OUTSIDE RECORDS SUMMARY | 2024-07-22 13:42 | XMS_ITS | Encounter Summary ---
Author Organization [facility] Address [address] [place] [address] Care Team Providers Care Professor Of Historical Theology Name Role Phone Corin Skinner MD Primary Care Provider Encounter Details Date Type Department Care Team (Late st Contact Info) Description 10/21/2008 Before PRISM Converted Visit (Maple) [facility] - Maple conversion [address] [place], [place] [address] Christopher Ga MD [address] [place] [phone] Social History Tobacco Use Types Packs/Day [...] Description 10/01/2024 13:40 EDT Office Visit [facility] Endocrinology - [facility] [address] [place] [address] Wilder Zaidi DO 62 [facility] [address] [place] [address] documented as of this encounter [...] [facility] Sample Type ARTERIAL [facility] outdoor power equipment mechanic [place] [id number] Test Performed by Respiratory For non-arterial reference ranges, please see ISTAT procedure. [facility] 10/21/2008 16:4 6 EDT 10/22/2008 1:20 EDT us Christopher Ga MD CHEMISTRY & BLOOD GAS ORDER LYNDSEY Final Result [facility] [address] [place] [address] documented in this encounter Visit Diagnoses Not on filedocumented in this encounter Care Teams Professor Of Historical Theology Relationship Specialty Start Date End Date Corin Skinner MD [address] [place] [phone] PCP - General 10/24/08 08/21/09 documented as of this encounter
--- OUTSIDE RECORDS SUMMARY | 2024-07-22 13:42 | XMS_ITS | Encounter Summary ---
Author Organization [facility] Address [address] [place] [address] Care Team Providers Care Financial Aid Director Name Role Phone Corin Skinner MD Primary Care Provider Encounter Details Date Type Department Care Team (Late st Contact Info) Description 10/21/2008 Before PRISM Converted Visit (Maple) [facility] - Maple conversion [address] [place], [place] [address] Christopher Ga MD [address] [place] [phone] Social History Tobacco Use Types Packs/Day [...] Info) Description 10/01/2024 13:40 EDT Office Visit [facility] Endocrinology - [facility] [address] [place] [address] Wilder Zaidi DO 62 [facility] [address] [place] [address] documented as of this encounter Procedures Procedure Name Priority Date/Time Associated Diagnosis Comments FIBRINOGEN Routine 10/21/2008 21:00 EDT documented in this encounter Results * (ABNORMAL) FIBRINOGEN (10/21/2008 21:00 EDT) Fibrinogen 425(H) 220 - 410 mg/dl [facility] 10/21/2008 21:0 0 EDT 10/21/2008 21:17 EDT us Christopher Ga MD HEMATOLOGY & PF4 ORDERABLES Final Result Performing Organization Address City/State/[facility] Co de Phone Number [facility] [address] [place] [address] documented in this encounter Visit Diagnoses Not on filedocumented in this encounter Care Teams Financial Aid Director Relationship Specialty Start Date End Date Corin Skinner MD [address] [place] [phone] PCP - General 10/24/08 08/21/09 documented as of this encounter
--- OUTSIDE RECORDS SUMMARY | 2024-07-22 13:42 | XMS_ITS | Encounter Summary ---
Author Organization [facility] Address [address] [place] [address] Care Team Providers Care Treatment Specialist Name Role Phone Corin Skinner MD Primary Care Provider [phone] Encounter Details Date Type Department Care Team (Late st Contact Info) Description 10/21/2008 Before PRISM Converted Visit (Maple) [facility] - Maple conversion [address] [place] [address] Emergency, MD Diya Social History Tobacco Use [...] Office Visit [facility] Endocrinology - [facility] [address] [place] [address] Wilder Zaidi, DO 62 [facility] [address] [place] [address] documented as of this encounter [...] PF4 ORDERABLES Final Result Performing Organization Address City/State/[facility] Co de Phone Number [facility] [address] [place] [address] documented in this encounter Visit Diagnoses Not on filedocumented in this encounter Care Teams Treatment Specialist Relationship Specialty Start Date End Date Corin Skinner MD [address] [place] [phone] PCP - General 10/24/08 08/21/09 documented as of this encounter
--- OUTSIDE RECORDS SUMMARY | 2024-07-22 13:42 | XMS_ITS | Encounter Summary ---
Author Organization [facility] Address [address] [place] [address] Care Team Providers Care Quality Assurance Supervisor Chassis Name Role Phone Corin Skinner MD Primary Care Provider [phone] Encounter Details Date Type Department Care Team (Late st Contact Info) Description 10/21/2008 Before PRISM Converted Visit (Maple) [facility] - Maple conversion [address] [place] [address] Emergency, MD Diya Social History Tobacco Use [...] Info) Description 10/01/2024 13:40 EDT Office Visit [facility] Endocrinology - [facility] [address] [place] [address] Wilder Zaidi, DO 62 [facility] [address] [place] [address] documented as of this encounter Procedures Procedure Name Priority Date/Time Associated Diagnosis Comments TESTS ADDED BY PHONE Routine 10/21/2008 17:54 EDT documented in this encounter Results * TESTS ADDED BY PHONE (10/21/2008 17:54 EDT) Tests to be added [facility] Who Called DR [facility] Location Code ED [facility] Read Back/Confirmed ? YES [facility] 10/21/2008 17:5 4 EDT 10/21/2008 17:54 EDT us Default Emergency MD CHEMISTRY & BLOOD GAS ORDER LYNDSEY Final Result Performing Organization Address City/State/[facility] Co de Phone Number [facility] [address] [place] [address] documented in this encounter Visit Diagnoses Not on filedocumented in this encounter Care Teams Quality Assurance Supervisor Chassis Relationship Specialty Start Date End Date Corin Skinner MD [address] [place] [phone] PCP - General 10/24/08 08/21/09 documented as of this encounter
--- OUTSIDE RECORDS SUMMARY | 2024-07-22 13:42 | XMS_ITS | Encounter Summary ---
Author Organization [facility] Address [address] [place] [address] Care Team Providers Care Civil Engineering Assistant Name Role Phone Corin Skinner MD Primary Care Provider Encounter Details Date Type Department Care Team (Late st Contact Info) Description 10/21/2008 Before PRISM Converted Visit (Maple) [facility] - Maple conversion [address] [place], [place] [address] Christopher Ga MD [address] [place] [phone] Social History Tobacco Use Types Packs/Day [...] Office Visit [facility] Endocrinology - [facility] [address] [place] [address] Wilder Zaidi DO [address] [facility] [address] [place] [address] documented [...] City/State/[facility] Co de Phone Number [facility] [address] [place] [address] documented in this encounter Visit Diagnoses Not on filedocumented in this encounter Care Teams Civil Engineering Assistant Relationship Specialty Start Date End Date Corin Skinner MD [address] [place] [phone] PCP - General 10/24/08 08/21/09 documented as of this encounter
--- OUTSIDE RECORDS SUMMARY | 2024-07-22 13:42 | XMS_ITS | Encounter Summary ---
Author Organization [facility] Address [address] [place] [address] Care Team Providers Care Drawer In Name Role Phone Unavailable Primary Care Provider Unavailabl e Encounter Details Date Type Department Care Team (Late st Contact Info) Description 07/12/2008 10:23 EST - 07/12/2008 11:59 EST Hospital Encounter [facility] [address] [place] [address] [facility] [address] [place] [address] Discharge Disposition: Auto Discharge Social History Tobacco [...] 13:40 EDT Office Visit [facility] Endocrinology - [facility] [address] [place] [address] Wilder Zaidi, DO 62 [facility] [address] [place] [address] Pending Results Name Type Priority [...] held for 5 days. [facility] 10/21/2008 17:5 4 EDT 10/21/2008 17:54 EDT us Default Emergency MD LAB INFO SERVICE AND SUPPOR T & PHONE RESULT Final Result Performing Organization Address [facility] Co de Phone Number [facility] [address] [place] [address] * HOLD PURPLE TOP (10/21/2008 17:54 EDT) Hold Purple Top EDTA for hematology will be discarded after 48 hours, differential not available after 12 hours. [facility] 10/21/2008 17:5 4 EDT 10/21/2008 17:54 EDT us Default Emergency MD LAB INFO SERVICE AND SUPPOR T & PHONE RESULT Final Result Performing Organization Address [facility] Co de Phone Number [facility] [address] [place] [address] * HOLD GREEN TOP (10/21/2008 17:54 EDT) Hold Green Top Hold for further testing. Specimen will be held for 5 days. [facility] 10/21/2008 17:5 4 EDT 10/21/2008 17:54 EDT us Default Emergency MD LAB INFO SERVICE AND SUPPOR T & PHONE RESULT Final Result Performing Organization Address [facility] Co de Phone Number [facility] [address] [place] [address] * HOLD BLUE TOP (10/21/2008 17:54 EDT) Hold Blue Top Sample for coagulation will be discarded after 4 hours [facility] 10/21/2008 17:5 4 EDT 10/21/2008 17:54 EDT us Default Emergency MD LAB INFO SERVICE AND SUPPOR T & PHONE RESULT Final Result Performing Organization Address [facility] de Phone Number [facility] [address] [place] [address] * HOLD GREEN TOP (08/13/2008 11:13 EST) Hold Green Top Hold for further testing. Specimen will be held for 5 days. [facility] 08/13/2008 11:1 3 EST 08/13/2008 12:58 EST us Default Emergency MD LAB INFO SERVICE AND SUPPOR T & PHONE RESULT Final Result Performing Organization Address [facility] de Phone Number [facility] [address] [place] [address] * HOLD BLUE TOP (08/13/2008 11:13 EST) Hold Blue Top Sample for coagulation will be discarded after 4 hours [facility] 08/13/2008 11:1 3 EST 08/13/2008 12:58 EST us Default Emergency MD LAB INFO SERVICE AND SUPPOR T & PHONE RESULT Final Result Performing Organization Address [facility] de Phone Number [facility] [address] [place] [address] * PHOSPHORUS (08/13/2008 11:13 EST) Phosphorus 4.4 2.5 - 4.5 mg/dl [facility] 08/13/2008 11:1 3 EST 08/13/2008 12:58 EST us Default Emergency MD CHEMISTRY & BLOOD GAS ORDER LYNDSEY Final Result Performing Organization Address [facility] de Phone Number [facility] [address] [place] [address] * MAGNESIUM (08/13/2008 11:13 EST) Magnesium 1.8 1.7 - 2.8 mg/dl [facility] 08/13/2008 11:1 3 EST 08/13/2008 12:58 EST us Default Emergency MD CHEMISTRY & BLOOD GAS ORDER LYNDSEY Final Result Performing Organization Address [facility] Phone Number [facility] [address] [place] [address] * LIPASE (08/13/2008 11:13 EST) Lipase 97 0 - 250 U/L [facility] 08/13/2008 11:1 3 EST 08/13/2008 12:58 EST us Default Emergency MD CHEMISTRY & BLOOD GAS ORDER LYNDSEY Final Result Performing Organization Address [facility] Phone Number [facility] [address] [place] [address] * (ABNORMAL) SCREENING GLUCOSE (08/13/2008 11:13 EST) Glucose, Screening 68(L) 70 - 100 mg/dl [facility] 08/13/2008 11:1 3 EST 08/13/2008 12:58 EST us Default Emergency MD CHEMISTRY & BLOOD GAS ORDER LYNDSEY Final Result Performing Organization Address [facility] Phone Number [facility] [address] [place] [address] * CREATININE (08/13/2008 11:13 EST) Creatinine 0.90 0.7 - 1.5 mg/dl [facility] GFR, Calculated >60 ml/min/1.7 3m2 [facility] 08/13/2008 11:1 3 EST 08/13/2008 12:58 EST us Default Emergency MD CHEMISTRY & BLOOD GAS ORDER LYNDSEY Final Result Performing Organization Address [facility] Phone Number [facility] [address] [place] [address] * BUN (08/13/2008 11:13 EST) BUN 17 10 - 26 mg/dl [facility] 08/13/2008 11:1 3 EST 08/13/2008 12:58 EST us Default Emergency MD CHEMISTRY & BLOOD GAS ORDER LYNDSEY Final Result Performing Organization Address [facility] de Phone Number [facility] [address] [place] [address] * CALCIUM (08/13/2008 11:13 EST) Calcium 9.5 8.5 - 10.5 mg/dl [facility] Calculated Calcium 9.3 8.5 - 10.5 mg/dl [facility] 08/13/2008 11:1 3 EST 08/13/2008 12:58 EST us Default Emergency MD CHEMISTRY & BLOOD GAS ORDER LYNDSEY Final Result Performing Organization Address [facility] de Phone Number [facility] [address] [place] [address] * LIVER FUNCTION TESTS (08/13/2008 11:13 EST) Albumin 4.6 3.4 - 4.9 g/dl [facility] Total Protein 8.0 6.5 - 8.3 g/dl [facility] Alkaline Phosphatase 120 38 - 126 U/L [facility] ALT 59 21 - 72 U/L [facility] AST 36 15 - 46 U/L [facility] Unconjugated Bilirubin 0.4 0.1 - 1.1 mg/dl [facility] Conjugated Bilirubin 0.0 0.0 - 0.3 mg/dl [facility] Bilirubin, Total <0.5 0.2 - 1.3 mg/dl [facility] 08/13/2008 11:1 3 EST 08/13/2008 12:58 EST us Default Emergency MD CHEMISTRY & BLOOD GAS ORDER LYNDSEY Final Result Performing Organization Address [facility] Co de Phone Number [facility] [address] [place] [address] * (ABNORMAL) ELECTROLYTES (08/13/2008 11:13 EST) Pathologist [facility] Sodium 153(H) 136 - 145 mEq/L [facility] Potassium 4.3 3.5 - 5.0 mEq/L [facility] Chloride 113(H) 96 - 110 mEq/L [facility] CO2 26 24 - 32 mEq/L [facility] 08/13/2008 11:1 3 EST 08/13/2008 12:58 EST [facility] MD CHEMISTRY & BLOOD GAS ORDER LYNDSEY Final Result Performing Organization Address [facility] de Phone Number [facility] [address] [place] [address] * (ABNORMAL) HEMAGRAM AND DIFFERENTIAL (08/13/2008 11:13 EST) [facility] WBC 2.32(L) 4.0 - 10.4 K/cmm [facility] RBC 5.19 4.36 - 5.78 M/cmm [facility] Hemoglobin 13.7(L) 13.8 - 17.3 gm/dl [facility] HCT 39.9 39.5 - 50.2 % [facility] MCV 77(L) 81 - 95 fl [facility] MCH 26.3(L) 27.6 - 33.0 pg [facility] MCHC 34.2 32.8 - 36.4 gm/dl [facility] PLT 202 141 - 320 K/cmm [facility] RDW-CV 16.2(H) 11.8 - 14.1 % [facility] Neutrophils 56.0 45.5 - 79.7 % [facility] Lymphocytes 38.0 15.0 - 46.8 % [facility] % Atyp Lymphs 1.0 % [facility] Monocytes 3.0 1.8 - 12.0 % [facility] Eosinophils 1.0 0.6 - 6.9 % [facility] Basophils 1.0 0.2 - 1.4 % [facility] ABS Neutrophils 1.31(L) 2.20 - 8.85 K/cmm [facility] ABS Lymphs 0.88(L) 1.09 - 3.30 K/cmm [facility] ABS Atyp Lymphs 0.02 K/cmm [facility] ABS Monocytes 0.07(L) 0.1 [...] ORDERA BLES Final Result Performing Organization Address [facility] Co de Phone Number [facility] [address] [place] [address] * (ABNORMAL) TESTOSTERONE (07/12/2008 10:44 EST) Testosterone, Total 28(L) 241 - 827 ng/dL [facility] 07/12/2008 10:4 4 EST 07/12/2008 11:[address] [facility] CHEMISTRY & BL OOD GAS ORDERABLES Final Result Performing Organization Address [facility] Co de Phone Number [facility] [address] [place] [address] * T4 FREE (07/12/2008 10:44 EST) Free T4 1.7 0.8 - 1.8 ng/dL [facility] 07/12/2008 10:4 4 EST 07/12/2008 11:[address] [facility] CHEMISTRY & BL OOD GAS ORDERABLES Final Result Performing Organization Address [facility] Co de Phone Number [facility] [address] [place] [address] * BASIC METABOLIC PANEL (07/12/2008 10:44 EST) [...] 4 EST 07/12/2008 11:[address] [facility] CHEMISTRY & BL OOD GAS ORDERABLES Final Result Performing Organization Address City/[facility] Co de Phone Number [facility] [address] [place] [address] documented in this encounter Visit Diagnoses Not on filedocumented in this encounter
--- OUTSIDE RECORDS SUMMARY | 2024-07-22 13:42 | XMS_ITS | Encounter Summary ---
Author Organization [facility] Address [address] [place] [address] Care Team Providers Care Construction Technician Name Role Phone Corin Skinner MD Primary Care Provider Encounter Details Date Type Department Care Team (Late st Contact Info) Description 10/21/2008 Before PRISM Converted Visit (Maple) [facility] Adult Primary Care - [address] [address] Rachana Cuello MD Social History Tobacco Use [...] Visit [facility] Endocrinology - [facility] [address] [place], [place] [id number] Wilder Zaidi, DO 62 [facility] [address] [place] [address] documented as of this encounter Procedures Procedure Name Priority Date/Time Associated Diagnosis Comments GLUCOSE, GLUCOMETER Routine 10/21/2008 1 7:16 EDT documented in this encounter Results * (ABNORMAL) GLUCOSE, GLUCOMETER (10/21/2008 17:16 EDT) Glucose, Fingerstick 166(H) 70 - 100 mg/dl [facility] [place] [id number] Test Performed by Nursing Services [facility] 10/21/2008 17:1 6 EDT 10/21/2008 17:33 EDT us Rachana Eloise Robb MD CHEMISTRY & BLOOD GAS ORDERABLES Final Result [facility] [address] [place] [address] documented in this encounter Visit Diagnoses Not on filedocumented in this encounter Care Teams Construction Technician Relationship Specialty Start Date End Date Corin Skinner MD [address] [place] [phone] PCP - General 10/24/08 08/21/09 documented as of this encounter
--- OUTSIDE RECORDS SUMMARY | 2024-07-22 13:42 | XMS_ITS | Encounter Summary ---
Author Organization [facility] Address [address] [place] [address] Care Team Providers Care Histology Tech Name Role Phone Corin Skinner MD Primary Care Provider Encounter Details Date Type Department Care Team (Late st Contact Info) Description 10/21/2008 Before PRISM Converted Visit (Maple) [facility] - Maple conversion [address] [place], [place] [address] Christopher Ga MD [address] [place] [phone] Social History Tobacco Use Types Packs/Day [...] Visit [facility] Endocrinology - [facility] [address] [place] [address] Wilder Zaidi DO 62 [facility] [address] [place] [address] documented as of this encounter Procedures Procedure Name Priority Date/Time Associated Diagnosis Comments MAGNESIUM Routine 10/21/2008 21:00 EDT documented in this encounter Results * (ABNORMAL) MAGNESIUM (10/21/2008 21:00 EDT) Magnesium 1.1(L) 1.7 - 2.8 mg/dl [facility] 10/21/2008 21:0 0 EDT 10/21/2008 21:17 EDT us Christopher Ga MD CHEMISTRY & BLOOD GAS ORDER LYNDSEY Final Result [facility] [address] [place] [address] documented in this encounter Visit Diagnoses Not on filedocumented in this encounter Care Teams Histology Tech Relationship Specialty Start Date End Date Corin Skinner MD [address] [place] [phone] PCP - General 10/24/08 08/21/09 documented as of this encounter
--- OUTSIDE RECORDS SUMMARY | 2024-07-22 13:42 | XMS_ITS | Encounter Summary ---
Author Organization [facility] Address [address] [place] [address] Care Team Providers Care Salad Chef Name Role Phone Corin Skinner MD Primary Care Provider [phone] Encounter Details Date Type Department Care Team (Late st Contact Info) Description 10/21/2008 Before PRISM Converted Visit (Maple) [facility] - Maple conversion [address] [place], [place] [address] Christopher Ga MD [address] [place] [phone] Social History Tobacco Use Types Packs/Day [...] Info) Description 10/01/2024 13:40 EDT Office Visit [facility] Endocrinology - [facility] [address] [place] [address] Wilder Zaidi DO 62 [facility] [address] [place] [address] documented as of this encounter Procedures Procedure Name Priority Date/Time Associated Diagnosis Comments GLUCOSE, GLUCOMETER Routine 10/21/2008 2 1:18 EDT documented in this encounter Results * GLUCOSE, GLUCOMETER (10/21/2008 21:18 EDT) Glucose, Fingerstick 95 70 - 100 mg/dl [facility] [employer]ing [place]er [place] [id number] Test Performed by Nursing Services [facility] 10/21/2008 21:1 8 EDT 10/21/2008 23:29 EDT us Christopher Ga MD CHEMISTRY & BLOOD GAS ORDER LYNDSEY Final Result [facility] [address] [place] [address] documented in this encounter Visit Diagnoses Not on filedocumented in this encounter Care Teams Salad Chef Relationship Specialty Start Date End Date Corin Skinner MD [address] [place] [phone] PCP - General 10/24/08 08/21/09 documented as of this encounter
--- OUTSIDE RECORDS SUMMARY | 2024-07-22 13:42 | XMS_ITS | Encounter Summary ---
Author Organization [facility] Address [address] [place] [address] Care Team Providers Care Roustabout Crew Leader Name Role Phone Corin Skinner MD Primary Care Provider Encounter Details Date Type Department Care Team (Late st Contact Info) Description 10/21/2008 Before PRISM Converted Visit (Maple) [facility] - Maple conversion [address] [place], [place] [address] Christopher aG MD [address] [place] [phone] Social History Tobacco Use Types Packs/Day [...] Office Visit [facility] Endocrinology - [facility] [address] [place] [address] Wilder Zaidi DO [address] [facility] [address] [place] [address] documented as of this encounter Procedures Procedure Name Priority Date/Time Associated Diagnosis Comments PHOSPHORUS Routine 10/21/2008 21:00 EDT documented in this encounter Results * PHOSPHORUS (10/21/2008 21:00 EDT) Phosphorus 3.6 2.5 - 4.5 mg/dl [facility] 10/21/2008 21:0 0 EDT 10/21/2008 21:17 EDT us Christopher Ga MD CHEMISTRY & BLOOD GAS ORDER LYNDSEY Final Result Performing Organization Address City/State/[facility] Co de Phone Number [facility] [address] [place] [address] documented in this encounter Visit Diagnoses Not on filedocumented in this encounter Care Teams Roustabout Crew Leader Relationship Specialty Start Date End Date Corin Skinner MD [address] [place] [phone] PCP - General 10/24/08 08/21/09 documented as of this encounter
--- OUTSIDE RECORDS SUMMARY | 2024-07-22 13:42 | XMS_ITS | Encounter Summary ---
Author Organization [facility] Address [address] [place] [address] Care Team Providers Care Social Media Coordinator Name Role Phone Corin Skinner MD Primary Care Provider [phone] Encounter Details Date Type Department Care Team (Late st Contact Info) Description 10/21/2008 Before PRISM Converted Visit (Maple) [facility] - Maple conversion [address] [place], [place] [address] Christopher Ga MD [address] [place] [phone] Social History Tobacco Use Types Packs/Day [...] Info) Description 10/01/2024 13:40 EDT Office Visit [facility] Endocrinology - [facility] [address] [place] [address] Wilder Zaidi DO [address] [facility] [address] [place] [address] documented as of this encounter [...] LYNDSEY Final Result [facility] [address] [place] [address] documented in this encounter Visit Diagnoses Not on filedocumented in this encounter Care Teams Social Media Coordinator Relationship Specialty Start Date End Date Corin Skinner MD [address] [place] [phone] PCP - General 10/24/08 08/21/09 documented as of this encounter
--- OUTSIDE RECORDS SUMMARY | 2024-07-22 13:42 | XMS_ITS | Encounter Summary ---
Author Organization [facility] Address [address] [place] [address] Care Team Providers Care Double Cut Off Saw Operator Name Role Phone Yan Demarco MD Primary Care Provider [phone] Corin Skinner MD Primary Care Provider [phone] Akil Serrano MD Primary Care Provider [phone] Yossi Torres MD Primary Care Provider [phone] mEilee Cody MD Primary Care Provider + Ren Vaz MD Primary Care Provider [phone] Encounter Details Date Type Department Care Team (Late st Contact Info) Description 10/21/2008 Before PRISM Converted Visit (Maple) [facility] - Maple conversion [address] [place] [address] Slava Pineda MD Social History Tobacco Use [...] Office Visit [facility] End[facility]inology - [facility] [address] [place], [place] [phone] Wilder Zaidi, 62 [facility] [address] [place] [address] documented as of this encounter Procedures Procedure [...] intimal atelectasis. Slava Pineda MD IMG DIAGNOSTIC IMAGING ORDER LYNDSEY Final Result documented in this encounter Visit Diagnoses Not on filedocumented in this encounter Care Teams Double Cut Off Saw Operator Relationship Specialty Start Date End Date Yan Demarco MD [address] [place] [phone] PCP - General 08/22/09 02/20/10 Corin Skinner MD [address] [place] [phone] PCP - General 10/24/08 08/21/09 Akil Serrano MD [address] [facility] [address] [place], [place] [address] PCP - General 02/21/10 04/16/11 Yossi Torres MD [address] [place] [phone] PCP - General 04/17/11 03/14/16 Emilee Cody MD [address] [place] [phone] PCP - General 03/15/16 09/29/18 Ren Vaz MD [address] [place] [phone] PCP - General 09/30/18 documented as of this encounter
--- OUTSIDE RECORDS SUMMARY | 2024-07-22 13:42 | XMS_ITS | Encounter Summary ---
Author Organization [facility] Address [address] [place] [address] Care Team Providers Care Traffic Control Technician Name Role Phone Corin Skinner MD Primary Care Provider +1- [phone] Encounter Details Date Type Department Care Team (Late st Contact Info) Description 10/21/2008 Before PRISM Converted Visit (Maple) [facility] - Maple conversion [address] [place] [address] Emergency, MD Diya Social History Tobacco Use [...] 13:40 EDT Office Visit [facility] Endocrinology - [facility] [address] [place] [address] Wilder Zaidi, DO 62 [facility] [address] [place] [address] documented [...] ORDER LYNDSEY Final Result Performing Organization Address City/State/[facility] Co de Phone Number [facility] [address] [place] [address] documented in this encounter Visit Diagnoses Not on filedocumented in this encounter Care Teams Traffic Control Technician Relationship Specialty Start Date End Date Corin Skinner MD [address] [place] [phone] PCP - General 10/24/08 08/21/09 documented as of this encounter
--- OUTSIDE RECORDS SUMMARY | 2024-07-22 13:42 | XMS_ITS | Encounter Summary ---
Author Organization [facility] Address [address] [place] [address] Care Team Providers Care Flower Machine Operator Name Role Phone Unavailable Primary Care Provider Unavailabl e Encounter Details Date Type Department Care Team (Late st Contact Info) Description 07/21/2008 18:45 EST - 07/26/2008 11:59 EST Hospital [facility] [address] [place], [place] [address] Jodi Parr MD [address] [place] [phone] Skyler Quinteros MD [address] [phone] Discharge Disposition: Home-Health Care Svc Social History [...] [facility] Endocrinology - [address] [phone] Wilder Zaidi, [address] [place] [address] [place] [address] documented as of this encounter [...] GAS ORDERABLES Final Result Performing Organization Address [facility] de Phone Number [facility] [address] [place] [address] * (ABNORMAL) ELECTROLYTES (07/26/2008 8:00 EST) Sodium 150(H) 136 - 145 mEq/L [facility] Potassium 4.1 3.5 - 5.0 mEq/L [facility] Chloride 112(H) 96 - 110 mEq/L [facility] CO2 25 24 - 32 mEq/L [facility] 07/26/2008 8:00 EST 07/26/2008 8:46 EST Skyler Quinteros MD, MSc CHEMISTRY & BLOOD GAS ORDERABLES Final Result Performing Organization Address [facility] de Phone Number [facility] [address] [place] [address] * (ABNORMAL) ELECTROLYTES (07/25/2008 8:10 EST) Sodium 147(H) 136 - 145 mEq/L [facility] Potassium 3.8 3.5 - 5.0 mEq/L [facility] Chloride 110 96 - 110 mEq/L [facility] CO2 23(L) 24 - 32 mEq/L [facility] 07/25/2008 8:10 EST 07/25/2008 8:39 EST Skyler Quinteros MD MSc CHEMISTRY & BLOOD GAS ORDERABLES Final Result Performing Organization Address [facility] de Phone Number [facility] [address] [place] [address] * CALCIUM, IONIZED (07/24/2008 16:41 EST) Calcium, Ionized 1.27 1.12 - 1.32 mmol/L [facility] [place] [id number] Test performed by Chemistry [facility] 07/24/2008 16:4 1 EST 07/24/2008 16:49 EST Skyler Quinteros MD MSc CHEMISTRY & BLOOD GAS ORDERABLES Final Result Performing Organization Address [facility] de Phone Number [facility] [address] [place] [address] * GLUCOSE, SERUM (07/24/2008 16:00 EST) Glucose, Serum 82 70 - 100 mg/dl [facility] 07/24/2008 16:0 0 EST 07/24/2008 16:36 EST Skyler Quinteros MD MSc CHEMISTRY & BLOOD GAS ORDERABLES Final Result Performing Organization Address [facility] Phone Number [facility] [address] [place] [address] * CALCIUM (07/24/2008 16:00 EST) Calcium 9.2 8.5 - 10.5 mg/dl [facility] Calculated Calcium 10.0 8.5 - 10.5 mg/dl [facility] 07/24/2008 16:0 0 EST 07/24/2008 16:36 EST Skyler Quinteros MD MSc CHEMISTRY & BLOOD GAS ORDERABLES Final Result Performing Organization Address [facility] Phone Number [facility] [address] [place] [address] * (ABNORMAL) ELECTROLYTES (07/24/2008 16:00 EST) Sodium 146(H) 136 - 145 mEq/L [facility] Potassium 4.5 3.5 - 5.0 mEq/L [facility] Chloride 108 96 - 110 mEq/L [facility] CO2 26 24 - 32 mEq/L [facility] 07/24/2008 16:0 0 EST 07/24/2008 16:36 EST Skyler Quinteros MD MSc CHEMISTRY & BLOOD GAS ORDERABLES Final Result Performing Organization Address [facility] de Phone Number [facility] [address] [place] [address] * CALCIUM IONIZED (07/24/2008 16:00 EST) Ionized Calcium Note Sample sent to Lab. [facility] 07/24/2008 16:0 0 EST 07/24/2008 16:36 EST Skyler Quinteros MD MSc CHEMISTRY & BLOOD GAS ORDERABLES Final Result Performing Organization Address [facility] de Phone Number [facility] [address] [place] [address] * (ABNORMAL) ELECTROLYTES (07/24/2008 8:00 EST) Sodium 147(H) 136 - 145 mEq/L [facility] Potassium 3.5 3.5 - 5.0 mEq/L [facility] Chloride 109 96 - 110 mEq/L [facility] CO2 21(L) 24 - 32 mEq/L [facility] 07/24/2008 8:00 EST 07/24/2008 8:28 EST Skyler Quinteros MD MSc CHEMISTRY & BLOOD GAS ORDERABLES Final Result Performing Organization Address [facility] de Phone Number [facility] [address] [place] [address] * WRIST 2 VIEWS (07/22/2008 15:15 EST) [...] ORDERABLES Final Result [facility] [address] [place] [address] * UA WITH MICROSCOPIC (07/22/2008 12:00 EST) Color, UA Yellow [facility] Clarity, UA Clear [facility] Glucose, UA Norm NORM [facility] Bilirubin, UA Neg NEG [facility] Ketones, UA Neg NEG [facility] Specific [facility], Urine 1.010 1.005 - 1.02 [facility] Blood, UA Neg NEG [facility] pH, UA 6.0 5.0 - 9.0 [facility] Protein, UA Neg NEG [facility] Urobilinogen, UA Norm NORM mg/dL [facility] Nitrite, UA Neg NEG [facility] [...] on urines unrefrig >2hrs or refrig >8hrs. [facility] Comment Amorphous material present [facility] 07/22/2008 12:0 0 EST 07/22/2008 12:23 EST us Skyler Quinteros MD MSc URINALYSIS ORDERABLES Final Result [facility] [address] [place] [address] * WRIST 2 VIEWS (07/21/2008 20:20 EST) [...]
--- OUTSIDE RECORDS SUMMARY | 2024-07-22 13:42 | XMS_ITS | Encounter Summary ---
Author Organization [facility] Address [address] [place] [address] Care Team Providers Care Optical Laboratory Mechanic Name Role Phone Corin Skinner MD Primary Care Provider +1- [phone] Encounter Details Date Type Department Care Team (Late st Contact Info) Description 10/21/2008 Before PRISM Converted Visit (Maple) [facility] - Maple conversion [address] [place] [address] Emergency, MD Diya Social History Tobacco Use [...] Visit [facility] - [facility] [address] [place] [address] Wilder Zaidi, DO 62 [facility] [address] [place] [address] documented as of this encounter Procedures Procedure Name Priority Date/Time Associated Diagnosis Comments TSH Routine 10/21/2008 17:54 EDT documented in this encounter Results * (ABNORMAL) TSH (10/21/2008 17:54 EDT) TSH <0.02(L) 0.35 - 5.00 uIU/ml [facility] 10/21/2008 17:5 4 EDT 10/21/2008 17:54 EDT us Default Emergency MD CHEMISTRY & BLOOD GAS ORDER LYNDSEY Final Result Performing Organization Address City/State/[facility] Co de Phone Number [facility] [address] [place] [address] documented in this encounter Visit Diagnoses Not on filedocumented in this encounter Care Teams Optical Laboratory Mechanic Relationship Specialty Start Date End Date Corin Skinner MD [address] [place] [phone] PCP - General 10/24/08 08/21/09 documented as of this encounter
--- OUTSIDE RECORDS SUMMARY | 2024-07-22 13:42 | XMS_ITS | Encounter Summary ---
Author Organization [facility] Address [address] [place] [address] Care Team Providers Care Field Laborer Name Role Phone Unavailable Primary Care Provider Unavailabl e Encounter Details Date Type Department Care Team (Late st Contact Info) Description 07/03/2008 16:20 EST - 07/05/2008 11:59 EST Hospital Encounter [facility] [address] [place] [address] Jodi Parr MD 111 [facility] [address] [place] [phone] Arcadio Gamboa MD [address] [facility], Level [address] [place] [phone] Discharge Disposition: Home-Health Care Svc Social History [...] 12/13/2008 2321 EDT HISS DISCHARGE SUMMARY ADDRESS: [address] [place] [address] PHONE: [phone] ATTENDING PHYSICIAN: JODI PARR MD ADDRESS: [address] [place] [address] PHONE: [phone] REFERRING PHYSICIAN: DOCTOR MARGARITA MD ADDRESS: PHONE: [...] home health services - Nursing, PT, OT, ASSOCIATE ARTISTIC DIRECTOR ALLERGIES: The following allergies were reported by [...] 12) POTASSIUM CHLORIDE / (kcl ext-rel tab (care home)) 20MEQ EXTENDED RELEASE TABLET, 3 TIMES A DAY, BY MOUTH MEDICATIONS YOU WERE TAKING PRIOR TO ADMISSION THAT SHOULD BE STOPPED: NONE HERBAL REMEDIES, NUTRITIONAL SUPPLEMENTS, AND QIKO-TOZ-RPYYBRC MEDICATIONS that have not been prescribed by a physician may have significant adverse side effect or may interfere with the medications that have been prescribed for you. If you are taking herbal remedies, nutritional supplements, or imyd-bkq-hfsicrt medications you are strongly encouraged to discontinue [...] status change was due to seizure or RESTAURANT DISTRICT MANAGER infection. Migule Angel was continued on home doses of [...] follow up with Dr. Edwards on 07/11 [facility]: Previously followed by: [facility] __ Initial call by: _Voice mail to Agnes on 07/04/08 _ AGENCY: [facility] [phone] fax [phone] cc: Doctor Demarco at [facility] END OF REPORT D: YAN KHAN MD P - ZOHDocument ID: [id number] documented in this encounter Discharge Disposition Disposition [...] Cheng MD P - MH Job ID: [id number] Document ID: [id number] cc: MD Yan Walker MD Christa M [...] status. I doubt this is related to RESTAURANT DISTRICT MANAGER infection or other systemic infection, especially considering [...] Lc Cheng MD P - Job ID: [id number] Document ID: [id number] cc: MD Corin Walker MD Christa M Zehle, MD documented in this encounter Plan of Treatment Upcoming Encounters Date Type Department Care Team (Late st Contact Info) Description 10/01/2024 13:40 EDT Office Visit [facility] Endocrinology - [facility] [address] [place] [address] Dejuan Wilder Valencia, DO [address] [facility] [address] [place] [address] documented as of this encounter [...] ORDERABLE S Final Result Performing Organization Address [facility] de Phone Number [facility] [address] [place] [address] * ELECTROLYTES (07/04/2008 8:15 EST) Sodium 144 136 - 145 mEq/L [facility] Potassium 3.8 3.5 - 5.0 mEq/L [facility] Chloride 107 96 - 110 mEq/L [facility] CO2 24 24 - 32 mEq/L [facility] 07/04/2008 8:15 EST 07/04/2008 8:44 EST us Jodi Parr MD CHEMISTRY & BLOOD GAS ORDERABLE S Final Result Performing Organization Address [facility] Phone Number [facility] [address] [place] [address] * (ABNORMAL) ELECTROLYTES (07/03/2008 20:00 EST) Sodium [...] ORDERABLE S Final Result Performing Organization Address [facility] de Phone Number [facility] [address] [place] [address] * CULTURE IF UA POSITIVE (07/03/2008 18:45 EST) Culture if Indicated Culture not indicated by urinalysis results. [facility] 07/03/2008 18:4 5 EST 07/03/2008 19:53 EST us Jodi Parr MD MICROBIOLOGY - GENERAL ORDERABL ES Final Result Performing Organization Address [facility] de Phone Number [facility] [address] [place] [address] * DRUG SCREEN 6 (07/03/2008 18:45 EST) Pathologist [facility] Amphetamine Screen, Urine Negative Screen Suitable for [...] drugs within class. Cutoff = 50 ng/ml [facility] Cocaine Metabolites, Ur Negative Screen [...] 07/03/2008 19:53 EST Jodi Parr MD URINALYSIS ORDERABLES Final Res ult Performing Organization Address [facility] de Phone Number [facility] [address] [place] [address] * UA REFLEX (07/03/2008 18:45 EST) Pathologist [facility] UA Billing Microscopic not indicated. [facility] 07/03/2008 18:4 5 EST 07/03/2008 19:53 EST Jodi Parr MD URINALYSIS ORDERABLES Final Res ult Performing Organization Address [facility] Co de Phone Number [facility] [address] [place] [address] * (ABNORMAL) URINALYSIS, CHEMICAL (07/03/2008 18:45 EST) Pathologist [facility] Color, UA Yellow [facility] Clarity, UA Clear [facility] Glucose, UA Norm NORM [facility] Bilirubin, UA Neg NEG [facility] Ketones, UA Neg NEG [facility] Specific [place], Urine <1.005(L) 1.005 - 1.02 [facility] Blood, UA Neg NEG [facility] pH, UA 6.0 5.0 - 9.0 [facility] Protein, UA Neg NEG [facility] Urobilinogen, UA Norm NORM mg/dL [facility] Nitrite, UA Neg NEG [facility] Leuk Esterase Neg NEG [facility] 07/03/2008 18:4 5 EST 07/03/2008 19:53 EST us Jodi Parr MD URINALYSIS ORDERABLES Final Res ult Performing Organization Address [facility] Co de Phone Number [facility] [address] [place] [address] * BACTERIAL CULTURE, BLOOD (07/03/2008 16:00 EST) Specimen Description Blood Right Groin [facility] Result No growth [facility] Report Status Final [id number] [facility] 07/03/2008 16:0 0 EST 07/03/2008 17:30 EST us Jodi Parr MD MICROBIOLOGY - GENERAL ORDERABL ES Final Result Performing Organization Address [facility] de Phone Number [place] [address] * (ABNORMAL) BLOOD GAS, EG6 ISTAT (07/03/2008 [...] [facility] Sample Type ARTERIAL [facility] gas appliance mechanic ID [id number] Test Performed by Respiratory [facility] 07/03/2008 15:0 5 EST 07/04/2008 19:29 EST us Jodi Parr MD CHEMISTRY & BLOOD GAS ORDERABLE S Final Result [facility] [address] [place] [address] documented in this encounter Visit Diagnoses Not on filedocumented in this encounter
--- OUTSIDE RECORDS SUMMARY | 2024-07-22 13:42 | XMS_ITS | Encounter Summary ---
Author Organization [facility] Address [address] [place] [address] Care Team Providers Care Superintendent Local Name Role Phone Corin Skinner MD Primary Care Provider Encounter Details Date Type Department Care Team (Late st Contact Info) Description 10/21/2008 Before PRISM Converted Visit (Maple) [facility] - Maple conversion [address] [place], [place] [address] Christopher Ga MD [address] [place] [phone] Social History Tobacco Use Types Packs/Day [...] 13:40 EDT Office Visit [facility] Endocrinology - [facility] [address] [place] [address] Wilder Zaidi DO 62 [facility] [address] [place] [address] documented as of this encounter Procedures Procedure Name Priority Date/Time Associated Diagnosis Comments GLUCOSE, GLUCOMETER Routine 10/21/2008 2 2:27 EDT documented in this encounter Results * (ABNORMAL) GLUCOSE, GLUCOMETER (10/21/2008 22:27 EDT) Glucose, Fingerstick 103(H) 70 - 100 mg/dl [facility] Tooth Grinder ID [id number] Test Performed by Nursing Services [facility] 10/21/2008 22:2 7 EDT 10/21/2008 23:30 EDT us Christopher Ga MD CHEMISTRY & BLOOD GAS ORDER LYNDSEY Final Result [facility] [address] [place] [address] documented in this encounter Visit Diagnoses Not on filedocumented in this encounter Care Teams Superintendent Local Relationship Specialty Start Date End Date Corin Skinner MD [address] [place] [phone] PCP - General 10/24/08 08/21/09 documented as of this encounter
--- OUTSIDE RECORDS SUMMARY | 2024-07-22 13:42 | XMS_ITS | Encounter Summary ---
Author Organization [facility] Address [address] [place] [address] Care Team Providers Care Retail Loss Prevention Investigator Name Role Phone Corin Skinner MD Primary Care Provider Encounter Details Date Type Department Care Team (Late st Contact Info) Description 10/21/2008 Before PRISM Converted Visit (Maple) [facility] - Maple conversion [address] [place], [place] [address] Christopher Ga MD [address] [place] [phone] Social History Tobacco Use Types Packs/Day [...] [facility] Endocrinology - [facility] [address] [place] [address] Wilder Zaidi DO 62 [facility] [address] [place] [address] documented as of this encounter Procedures Procedure Name Priority Date/Time Associated Diagnosis Comments GLUCOSE, GLUCOMETER Routine 10/21/2008 1 9:22 EDT documented in this encounter Results * GLUCOSE, GLUCOMETER (10/21/2008 19:22 EDT) Glucose, Fingerstick 89 70 - 100 mg/dl [facility] Iridologist ID [id number] Test Performed by Nursing Services [facility] 10/21/2008 19:2 2 EDT 10/21/2008 23:29 EDT us Christopher Ga MD CHEMISTRY & BLOOD GAS ORDER LYNDSEY Final Result [facility] [address] [place] [address] documented in this encounter Visit Diagnoses Not on filedocumented in this encounter Care Teams Retail Loss Prevention Investigator Relationship Specialty Start Date End Date Corin Skinner MD [address] [place] [phone] PCP - General 10/24/08 08/21/09 documented as of this encounter
--- OUTSIDE RECORDS SUMMARY | 2024-07-22 13:42 | XMS_ITS | Encounter Summary ---
Author Organization [facility] Address [address] [place] [address] Care Team Providers Care Lining Cleaner Name Role Phone Corin Skinner MD Primary Care Provider +1- [phone] Encounter Details Date Type Department Care Team (Late st Contact Info) Description 07/11/2008 Before PRISM Converted Visit (Maple) [facility] - Maple conversion [address] [place] [address] Skyler Edwards [facility] [address] [place] [phone] Social History Tobacco Use Types Packs/Day Years [...] 07/11/2008 July 11, 2008 Yan Demarco M.D. [facility] [address] [place] [address], [address] [place] [address] Demarco, I had the pleasure [...] the family. They have hired a new SENIOR LANDSCAPE ARCHITECT who is a male and are hoping [...] by the visiting nurse. Mother knows that [facility] has an order for these injections and [...] Skyler Edwards MD Division of Pediatric Endocrinology [phone] - Skyler Edwards MD P - ROXI Job ID: [id number] Doc ID: [id number] cc: MD Yan Singh MD documented in this encounter Plan of Treatment Upcoming Encounters Date Type Department Care Team (Late st Contact Info) Description 10/01/2024 13:40 EDT Office Visit [facility] Endocrinology - [facility] [address] [place], [place] [phone] Wilder Zaidi, DO 62 [facility] [address] [place] [phone] documented as of this encounter Visit Diagnoses Not on filedocumented in this encounter Care Teams Lining Cleaner Relationship Specialty Start Date End Date Corin Skinner MD [address] [place] [phone] PCP - General 10/24/08 08/21/09 documented as of this encounter
--- OUTSIDE RECORDS SUMMARY | 2024-07-22 13:42 | XMS_ITS | Encounter Summary ---
Author Organization [facility] Address [address] [place] [address] Care Team Providers Care Chief Of Harbor Patrol Name Role Phone Corin Skinner MD Primary Care Provider +[phone]- [phone] Encounter Details Date Type Department Care Team (Late st Contact Info) Description 07/03/2008 Office Visit [facility] - Maple conversion [address] [place] [address] Arcadio Gamboa MD 111 [facility], Level 1 [place] [phone] Social History Tobacco Use Types Packs/Day Years [...] Addenda for MIGUEL ANGEL MASON JR VisitID: [id number] Date: 07/03/2008 07/03/2008 12:16 DR. MACKAY PT [...] --1527 Lucille Carlson R.N. (Paediatric Residents and Security Delivery Specialist at bedside). --1528 Lucille Carlson R.N. 16 fr morse catheter placed using sterile technique and attached to bedside drainage bag, with return of yellow-colored clear urine. The patient tolerated procedure well (inserted by Paediatric Resident Judy Clarke). --1537 Lucille Carlson R.N. (Patient appears more responsive). --1538 Lucille Carlson R.N. Patient transported to [facility] by stretcher with [employer]. --1613 Lucille Carlson R.N. VANCOMYCIN 1 gram [...] IV access in left inner wrist by RHIC SYSTEMS SAFETY ENGINEER). --151 Lucille Carlson R.N. IV Site #2. IV access: left foot. IV started in ED; (22g IV access by RHIC SYSTEMS SAFETY ENGINEER). --1522 Lucille Carlson R.N. Blood samples drawn. [...] was given (Kp). Transported via stretcher by [employer] (NS running STAT, 1gm Vancomycin running via pump). Admitted to pediatrics. --172 Lucille Carlson R.N. Transported via stretcher by transport team (and hospital sitter). --173 Abigail Woodall R.N.. Jazz Carlson R.N. Aeron Blondin Abigail Woodall R.N. Locked/Released at 07/03/2008 17:33 by Abigail Woodall R.N. documented in this encounter Plan of Treatment Upcoming Encounters Date Type Department Care Team (Late st Contact Info) Description 10/01/2024 13:40 EDT Office Visit [facility] Endocrinology - [facility] [address] [place], [place] [phone] Wilder Zaidi, 62 [facility] [address] [place] [address] documented as of this encounter Visit Diagnoses Not on filedocumented in this encounter Care Teams Chief Of Harbor Patrol Relationship Specialty Start Date End Date Corin Skinner MD [address] [place] [phone] PCP - General 10/24/08 08/21/09 documented as of this encounter
--- OUTSIDE RECORDS SUMMARY | 2024-07-22 13:45 | XMS_ITS | Encounter Summary ---
Author Organization [facility] Address [address] [place] [address] Care Team Providers Care Ceramic Artist Name Role Phone Corin Skinner MD Primary Care Provider [phone] Encounter Details Date Type Department Care Team (Late st Contact Info) Description 02/08/2008 Before PRISM Converted Visit (Maple) [facility] - Maple conversion [address] [place] [address] Rui Bazan MD Social History Tobacco Use Types Packs/Day Years Used Date Smoking Tobacco: Never Assessed Sex and Gender Information Value Date Recorded Sex Assigned at Not on file Legal Sex Male 18:35 EST Gender Identity Not on file Sexual Orientation Not on file documented as of this encounter Consult Notes * Rui Bazan III, MD - 04/03/2009 8748 EDT CONSULTATION - 02/08/2008 NEUROLOGY HEALTH CARE [...] before the family had gone out for [employer] food. He had had his medications at the usual time at 4:30 p.m. While at the [employer] the family stated that his body [...] Bazan III, MD - CHRISSY Job ID: [id number] Doc ID: [id number] cc: Yan Demarco MD documented in this encounter Plan of Treatment Upcoming Encounters Date Type Department Care Team (Late st Contact Info) Description 10/01/2024 13:40 EDT Office Visit [facility] Endocrinology - [facility] [address] [place] [address] Wilder Zaidi, [address] [facility] [address] [place] [address] documented as of this encounter Visit Diagnoses Not on filedocumented in this encounter Care Teams Ceramic Artist Relationship Specialty Start Date End Date Corin Skinner MD [address] [place] [id number] PCP - General 10/24/08 08/21/09 documented as of this encounter
--- OUTSIDE RECORDS SUMMARY | 2024-07-22 13:45 | XMS_ITS | Encounter Summary ---
Author Organization [facility] Address [address] [place] [address] Care Team Providers Care Water Taxi Boat Mate Name Role Phone Unavailable Primary Care Provider Unavailabl e Encounter Details Date Type Department Care Team (Late st Contact Info) Description 05/08/2008 5:55 EST - 06/01/2008 11:59 EST Hospital Encounter [facility] Pediatric Unit [address], [place] [address] Millicent Garcia MD [address] [place] [address] Jose Alejandro Castro MD Discharge [...] 01/15/2009 0552 EDT HISS DISCHARGE SUMMARY ADDRESS: [address] [place] [address] PHONE: [phone] ATTENDING PHYSICIAN: MILLICENT GARCIA MD ADDRESS: [facility] [address] [place] [address] PHONE: [phone] REFERRING PHYSICIAN: ALANA MARTINEZ MD ADDRESS: [facility] [address] [place] [address] PHONE: [phone] ADMISSION DATE: 05/08/08 SERVICE: PED. MEDICINE TRANSFER TO IP: DISCHARGE DATE: 06/01/08 SERVICE: PED. MEDICINE CHIEF COMPLAINT / REASON FOR ADMISSION: Respiratory distress PRINCIPAL/FINAL DIAGNOSIS: RLL PNA SECONDARY/FINAL DIAGNOSIS: Central diabetes insipidus Developmental delay Cortical blindness Seizures Panhypopituitarism Left hemiparesis PRINCIPAL PROCEDURE: PICC line placement CONDITION AT DISCHARGE: Stable Improved DISPOSITION AT DISCHARGE: Home with home health services - Speech, PT, OT, MANAGER MSW-resume previous ALLERGIES: The following allergies were reported [...] STOPPED: NONE HERBAL REMEDIES, NUTRITIONAL SUPPLEMENTS, AND [id number]-XPL-[id number] MEDICATIONS that have not been prescribed by a physician may have significant adverse side effect or may interfere with the medications that have been prescribed for you. If you are taking herbal remedies, nutritional supplements, or syvv-btv-ijhyfzd medications you are strongly encouraged to discontinue [...] - [facility] secondary to increased somnolence and ataxia [...] Dr. Demarco or [facility]. If Na < 132 or Na > 142, or if K+ < 3.8, page Dr. NAVI Edwards (even if not religious education coordinator). - Check weight daily. If > 1kg [...] RN ____ on @ __:__ fax : [phone] Day of discharge referral call by: on __/__/__ @ __:__ Spoke with: / Agency: Date/time of first visit needed: __/__/__ @ __:__ Discharged on __/__/__ @ __:__ with: To address: Phone: personnel officer: Phone: Relationship: HOME INFUSION: IV Access Solo Power PICC Type Valved Catheter Date inserted 05/18/08 Last flushed Last drsg change 05/28/08 (external length 8cm) In-hospital teaching RE: Line care [facility] OUTPT Pharmacy PATIENT/FAMILY EDUCATION: Central Line Care PATIENT/FAMILY EDUCATION: Subcutaneous Injection cc: MD Dr. NAVI CASTILLO (Pedi Endo) Dr. Demarco (PCP) ADDENDUM: Additional medication: zonisamide (Zonegran) 50mg PO daily (for seizures) END OF REPORT D: ANATOLIY CHOUDHURY MD P - ZOHDocument ID: [id number] documented in this encounter Discharge Disposition Disposition Code Departure Means Destination Home-Health Care [facility] documented in this encounter Progress Notes * [...] history as below, who was transported from [place] with respiratory failure and pneumonia in the setting of two weeks of cough and congestion. At 0200 on the morning of admission, his stepmom noted his respiratory distress had acutely worsened and he was transported by EMS to [place]. There, he required bag mask ventilation, intubation and mechanical ventilation. He [facility] [...] not tolerating p.o. of any consistency and COMEDIAN was consulted on May 12, 2008. Bedside [...] His parents had been restricting him to [id number] zurdo/day to maintain a weight of 160-170#. [...] his DDAVPdose and fluid balance. 4. Respiratory. iMguel Angel was intubated and stabilized on mechanical ventilation prior to transport andrenyined on the ventilator for two days. On [...] from 12:15 to 1:15 with all of [place] care providers and family to discuss his disposition and coordination of care. DISPOSITION Transfer to [place] [id number]. CONDITION AT DISCHARGE Stable. Supervising Physician Signed by Alanna Neil MD 05/30/2008 15:03 Zain Hdz MD Alanna Neil MD - Zain Hdz MD A - [facility] Job ID: [id number] Document ID: [id number] cc: MD Zain Walker, MD Alanna Bell MD Roger C Knakal, MD Daniel W Larrow, MD William V Raszka, MD Christopher Ga, MD Jodi Parr, MD Skyler Edwards MD * Lc Cheng MD - 05/12/2008 0000 EST INPATIENT PROGRESS NOTE Service Date: 05/12/2008 PT LOC: M003 This is an inpatient followup consultation at the request of Dr Alanna Neil for this 12-xzkn-evjykyq complicated problems centering around earlier operative craniopharyngioma. [...] neurologically related to his earlier and static EMERGENCY MEDICINE PHYSICIAN ASSISTANT injury (bilateral thalamic hemorrhagicischemic changes). His examination [...] no definite evidence of a superimposed acquired EMERGENCY MEDICINE PHYSICIAN ASSISTANT injury ie hypoxic, ischemic or otherwise. I [...] Cheng MD P - [facility] Job ID: [id number] Document ID: [id number] cc: MD Jose Alejandro Walker MD Amelia Hopkins, MD Stewart Tomah, MD documented in this encounter Consult Notes [...] transsphenoidal resection and craniotomy. Hewas [facility] from [place] on May 08, 2008, with respiratory failure [...] are doing to include PT, OT, and COMEDIAN. 2. Environmental Services Worker to clarify home disposition issues and assistance [...] Wicho Carlton MD P - Job ID: [id number] Document ID: [id number] cc: Alexis Ocampo III, MD Barry W [...] neurology resident, Dr. Carr. Miguel Angel is 46-vh[age]h-sou and has a history of operated craniopharyngioma [...] here early Friday, May 08, 2008, via [facility]. He had mild hypotension, 82/54, with [...] his care and he was transferred to [facility], and, in the course of that hospitalization, [...] Lc Cheng MD P - Job ID: [id number] Document ID: [id number] cc: MD Jose Alejandro Walker MD Stewart Manchester, MD documented in this encounter Plan of Treatment Upcoming Encounters Date Type Department Care Team (Late st Contact Info) Description 10/01/2024 13:40 EDT Office Visit [facility] Endocrinology - [facility] [address] [place] [address] Wilder Zaidi, [address] [facility] [address] [place] [address] documented as of this encounter [...] ORDERABLE S Final Result Performing Organization Address [facility] Co de Phone Number [facility] [address] [place] [address] * CREATININE (06/01/2008 5:06 EST) Creatinine 0.71 0.6 - 1.2 mg/dl [facility] GFR, Calculated Age <18 ml/min/1.7 3m2 [facility] 06/01/2008 5:06 EST 06/01/2008 5:35 EST us Jodi Parr MD CHEMISTRY & BLOOD GAS ORDERABLE S Final Result Performing Organization Address [facility] Co de Phone Number [facility] [address] [place] [address] * BUN (06/01/2008 5:06 EST) BUN 16 8 - 21 mg/dl [facility] 06/01/2008 5:06 EST 06/01/2008 5:35 EST us Jodi Parr MD CHEMISTRY & BLOOD GAS ORDERABLE S Final Result Performing Organization Address [facility] de Phone Number [facility] [address] [place] [address] * (ABNORMAL) ELECTROLYTES (06/01/2008 5:06 EST) Sodium [...] Final Result Performing Organization Address [facility] de Phone Number [facility] [address] [place] [address] * ELECTROLYTES (05/31/2008 18:00 EST) Sodium 137 136 - 145 mEq/L [facility] Potassium 3.8 3.5 - 5.0 mEq/L [facility] Chloride 99 96 - 110 mEq/L [facility] CO2 24 24 - 32 mEq/L [facility] 05/31/2008 18:0 0 EST 05/31/2008 18:56 EST us Jodi Parr MD CHEMISTRY & BLOOD GAS ORDERABLE S Final Result Performing Organization Address [facility] Phone Number [facility] [address] [place] [address] * ELECTROLYTES (05/31/2008 12:20 EST) Sodium 136 [...] Final Result Performing Organization Address [facility] de Phone Number [facility] [address] [place] [address] * (ABNORMAL) GLUCOSE, SERUM (05/31/2008 6:00 EST) Glucose, Serum 67(L) 70 - 100 mg/dl [facility] 05/31/2008 6:00 EST 05/31/2008 6:24 EST us Jodi Parr MD CHEMISTRY & BLOOD GAS ORDERABLE S Final Result Performing Organization Address City/[facility]/ZIP Co de Phone Number [facility] [address] [place] [address] * CREATININE (05/31/2008 6:00 EST) Creatinine 0.70 0.6 - 1.2 mg/dl [facility] GFR, Calculated Age <18 ml/min/1.7 3m2 [facility] 05/31/2008 6:00 EST 05/31/2008 6:24 EST us Jodi Parr MD CHEMISTRY & BLOOD GAS ORDERABLE S Final Result Performing Organization Address [facility] Co de Phone Number [facility] [address] [place] [address] * BUN (05/31/2008 6:00 EST) BUN 18 8 - 21 mg/dl [facility] 05/31/2008 6:00 EST 05/31/2008 6:24 EST us Jodi Parr MD CHEMISTRY & BLOOD GAS ORDERABLE S Final Result Performing Organization Address [facility] Co de Phone Number [facility] [address] [place] [address] * (ABNORMAL) ELECTROLYTES (05/31/2008 6:00 EST) Sodium 135(L) 136 - 145 mEq/L [facility] Potassium 4.3 3.5 - 5.0 mEq/L [facility] Chloride 100 96 - 110 mEq/L [facility] CO2 22(L) 24 - 32 mEq/L [facility] 05/31/2008 6:00 EST 05/31/2008 6:24 EST us Jodi Parr MD CHEMISTRY & BLOOD GAS ORDERABLE S Final Result Performing Organization Address City/[facility]/ZIP Co de Phone Number [facility] [address] [place] [address] * (ABNORMAL) ELECTROLYTES (05/30/2008 18:00 EST) Sodium [...] ORDERABLE S Final Result Performing Organization Address [facility] de Phone Number [facility] [address] [place] [address] * ELECTROLYTES (05/30/2008 12:25 EST) Sodium 136 136 - 145 mEq/L [facility] Potassium 3.7 3.5 - 5.0 mEq/L [facility] Chloride 97 96 - 110 mEq/L [facility] CO2 25 24 - 32 mEq/L [facility] 05/30/2008 12:2 5 EST 05/30/2008 12:33 EST Jodi Parr MD CHEMISTRY & BLOOD GAS ORDERABLE S Final Result Performing Organization Address [facility] de Phone Number [facility] [address] [place] [address] * (ABNORMAL) GLUCOSE, SERUM (05/30/2008 5:10 EST) Glucose, Serum 63(L) 70 - 100 mg/dl [facility] 05/30/2008 5:10 EST 05/30/2008 5:32 EST Jodi Parr MD CHEMISTRY & BLOOD GAS ORDERABLE S Final Result Performing Organization Address [facility] Co de Phone Number [facility] [address] [place] [address] * CREATININE (05/30/2008 5:10 EST) Creatinine 0.70 0.6 - 1.2 mg/dl [facility] GFR, Calculated Age <18 ml/min/1.7 3m2 [facility] 05/30/2008 5:10 EST 05/30/2008 5:32 EST Jodi Parr MD CHEMISTRY & BLOOD GAS ORDERABLE S Final Result Performing Organization Address [facility] de Phone Number [facility] [address] [place] [address] * BUN (05/30/2008 5:10 EST) BUN 16 8 - 21 mg/dl [facility] 05/30/2008 5:10 EST 05/30/2008 5:32 EST Jodi Parr MD CHEMISTRY & BLOOD GAS ORDERABLE S Final Result Performing Organization Address [facility] de Phone Number [facility] [address] [place] [address] * (ABNORMAL) ELECTROLYTES (05/30/2008 5:10 EST) Sodium 132(L) 136 - 145 mEq/L [facility] Potassium 4.4 3.5 - 5.0 mEq/L [facility] Chloride 98 96 - 110 mEq/L [facility] CO2 25 24 - 32 mEq/L [facility] 05/30/2008 5:10 EST 05/30/2008 5:32 EST Jodi Parr MD CHEMISTRY & BLOOD GAS ORDERABLE S Final Result Performing Organization Address [facility] de Phone Number [facility] [address] [place] [address] * (ABNORMAL) ELECTROLYTES (05/29/2008 18:00 EST) Sodium [...] ORDERABLE S Final Result Performing Organization Address [facility] Phone Number [facility] [address] [place] [address] * (ABNORMAL) ELECTROLYTES (05/29/2008 12:32 EST) Sodium [...] ORDERABLE S Final Result Performing Organization Address [facility] Phone Number [facility] [address] [place] [address] * (ABNORMAL) GLUCOSE, SERUM (05/29/2008 6:55 EST) Glucose, Serum 62(L) 70 - 100 mg/dl [facility] 05/29/2008 6:55 EST 05/29/2008 7:36 EST Jose Alejandro Castro MD CHEMISTRY & BLOOD GAS ORDERABLE S Final Result Performing Organization Address [facility] Phone Number [facility] [address] [place] [address] * CREATININE (05/29/2008 6:55 EST) Creatinine 0.60 0.6 - 1.2 mg/dl [facility] GFR, Calculated Age <18 ml/min/1.7 3m2 [facility] 05/29/2008 6:55 EST 05/29/2008 7:36 EST Jose Alejandro Castro MD CHEMISTRY & BLOOD GAS ORDERABLE S Final Result Performing Organization Address [facility] Co de Phone Number [facility] [address] [place] [address] * BUN (05/29/2008 6:55 EST) BUN 16 8 - 21 mg/dl [facility] 05/29/2008 6:55 EST 05/29/2008 7:36 EST Jose Alejnadro Castro MD CHEMISTRY & BLOOD GAS ORDERABLE S Final Result Performing Organization Address [facility] de Phone Number [facility] [address] [place] [address] * (ABNORMAL) ELECTROLYTES (05/29/2008 6:55 EST) Sodium 134(L) 136 - 145 mEq/L [facility] Potassium 4.0 3.5 - 5.0 mEq/L [facility] Chloride 99 96 - 110 mEq/L [facility] CO2 22(L) 24 - 32 mEq/L [facility] 05/29/2008 6:55 EST 05/29/2008 7:36 EST Jose Alejandro Castro MD CHEMISTRY & BLOOD GAS ORDERABLE S Final Result Performing Organization Address [facility] de Phone Number [facility] [address] [place] [address] * ELECTROLYTES (05/28/2008 19:00 EST) Sodium 136 136 - 145 mEq/L [facility] Potassium 4.2 3.5 - 5.0 mEq/L [facility] Chloride 98 96 - 110 mEq/L [facility] CO2 26 24 - 32 mEq/L [facility] 05/28/2008 19:0 0 EST 05/28/2008 19:12 EST Jose Alejandro Castro MD CHEMISTRY & BLOOD GAS ORDERABLE S Final Result Performing Organization Address [facility] Co de Phone Number [facility] [address] [place] [address] * (ABNORMAL) GLUCOSE, SERUM (05/28/2008 6:59 EST) Glucose, Serum 66(L) 70 - 100 mg/dl [facility] 05/28/2008 6:59 EST 05/28/2008 6:59 EST Jose Alejandro Castro MD CHEMISTRY & BLOOD GAS ORDERABLE S Final Result Performing Organization Address [facility] de Phone Number [facility] [address] [place] [address] * (ABNORMAL) CREATININE (05/28/2008 6:59 EST) Creatinine 0.50(L) 0.6 - 1.2 mg/dl [facility] GFR, Calculated Age <18 ml/min/1.7 3m2 [facility] 05/28/2008 6:59 EST 05/28/2008 6:59 EST Jose Alejandro Castro MD CHEMISTRY & BLOOD GAS ORDERABLE S Final Result Performing Organization Address [facility] de Phone Number [facility] [address] [place] [address] * BUN (05/28/2008 6:59 EST) BUN 15 8 - 21 mg/dl [facility] 05/28/2008 6:59 EST 05/28/2008 6:59 EST us Jose Alejandro Castro MD CHEMISTRY & BLOOD GAS ORDERABLE S Final Result Performing Organization Address [facility] Co de Phone Number [facility] [address] [place] [address] * (ABNORMAL) ELECTROLYTES (05/28/2008 6:59 EST) Sodium 134(L) 136 - 145 mEq/L [facility] Potassium 4.4 3.5 - 5.0 mEq/L [facility] Chloride 99 96 - 110 mEq/L [facility] CO2 25 24 - 32 mEq/L [facility] 05/28/2008 6:59 EST 05/28/2008 6:59 EST us Jose Alejandro Castro MD CHEMISTRY & BLOOD GAS ORDERABLE S Final Result Performing Organization Address [facility] Co de Phone Number [facility] [address] [place] [address] * (ABNORMAL) CREATININE (05/27/2008 19:07 EST) Creatinine 0.50(L) 0.6 - 1.2 mg/dl [facility] GFR, Calculated Age <18 ml/min/1.7 3m2 [facility] 05/27/2008 19:0 7 EST 05/27/2008 19:07 EST us Jose Alejandro Castro MD CHEMISTRY & BLOOD GAS ORDERABLE S Final Result Performing Organization Address [facility]/ZIP Co de Phone Number [facility] [address] [place] [address] * BUN (05/27/2008 19:07 EST) BUN 16 8 - 21 mg/dl [facility] 05/27/2008 19:0 7 EST 05/27/2008 19:07 EST us Jose Alejandro Castro MD CHEMISTRY & BLOOD GAS ORDERABLE S Final Result Performing Organization Address [facility]/ZIP Co de Phone Number [facility] [address] [place] [address] * TESTS ADDED BY PHONE (05/27/2008 19:07 EST) Tests to be added STAT BUN,CREAT [facility] Who Called DR ALDO [facility] Location Code M3 MELONI[facility]ARSHA H[facility] 05/27/2008 19:0 7 EST 05/27/2008 19:07 EST Jose Alejandro Castro MD CHEMISTRY & BLOOD GAS ORDERABLE S Final Result Performing Organization Address [facility] Co de Phone Number [facility] [address] [place] [address] * (ABNORMAL) ELECTROLYTES (05/27/2008 19:07 EST) Sodium [...] ORDERABLE S Final Result Performing Organization Address [facility] de Phone Number [facility] [address] [place] [address] * (ABNORMAL) GLUCOSE, GLUCOMETER (05/27/2008 16:21 EST) Glucose, Fingerstick 124(H) 70 - 100 mg/dl [facility] [place] [id number] Test Performed by Nursing Services [facility] 05/27/2008 16:2 1 EST 05/27/2008 23:27 EST Jose Alejandro Castro MD CHEMISTRY & BLOOD GAS ORDERABLE S Final Result Performing Organization Address [facility] de Phone Number [facility] [address] [place] [address] * (ABNORMAL) ELECTROLYTES (05/27/2008 16:21 EST) Sodium [...] Final Result Performing Organization Address [facility] de Phone Number [facility] [address] [place] [address] * GLUCOSE, GLUCOMETER (05/27/2008 12:26 EST) Glucose, Fingerstick 87 70 - 100 mg/dl [facility] [place] ID [id number] Test Performed by Nursing Services [facility] 05/27/2008 12:2 6 EST 05/27/2008 23:27 EST Jose Alejandro Castro MD CHEMISTRY & BLOOD GAS ORDERABLE S Final Result Performing Organization Address [facility] Phone Number [facility] [address] [place] [address] * BACTERIAL CULTURE, URINE (05/27/2008 12:04 EST) Specimen Description Urine [facility] Result No growth [facility] Report Status Final 05/28/2008 [facility] 05/27/2008 12:0 4 EST 05/27/2008 13:14 EST Jose Alejandro Castro MD MICROBIOLOGY - GENERAL ORDERABL ES Final Result Performing Organization Address [facility] de Phone Number [facility] [address] [place] [address] * (ABNORMAL) URINALYSIS, CHEMICAL (05/27/2008 12:04 EST) Color, UA Yellow [facility] Clarity, UA Clear [facility] Glucose, UA Norm NORM [facility] Bilirubin, UA Neg NEG [facility] Ketones, UA Neg NEG [facility] Specific Tarrs, Urine >1.030(H) 1.005 - 1.02 [facility] Blood, UA Small(A) NEG [facility] pH, UA 5.5 5.0 - 9.0 [facility] Protein, UA Trace(A) NEG [facility] Urobilinogen, UA Norm NORM mg/dL [facility] Nitrite, UA Neg NEG [facility] Leuk Esterase Neg NEG [facility] Refractometer SG,Urine 1.028(H) 1.005 - 1.02 [facility] 05/27/2008 12:0 4 EST 05/27/2008 13:15 EST Jose Alejandro Castro MD URINALYSIS ORDERABLES Final Res ult Performing Organization Address [facility] Co de Phone Number [facility] [address] [place] [address] * URINE MICROSCOPIC (05/27/2008 12:04 EST) WBC, [...] ORDERABLES Final Res ult Performing Organization Address [facility] Co de Phone Number [facility] [address] [place] [address] * (ABNORMAL) ELECTROLYTES (05/27/2008 11:45 EST) Sodium [...] ORDERABLE S Final Result Performing Organization Address [facility] de Phone Number [facility] [address] [place] [address] * GLUCOSE, SERUM (05/27/2008 6:45 EST) Glucose, Serum 74 70 - 100 mg/dl [facility] 05/27/2008 6:45 EST 05/27/2008 6:55 EST Jose Alejandro Castro MD CHEMISTRY & BLOOD GAS ORDERABLE S Final Result Performing Organization Address [facility] Phone Number [facility] [address] [place] [address] * (ABNORMAL) ELECTROLYTES (05/27/2008 6:45 EST) Sodium 133(L) 136 - 145 mEq/L [facility] Potassium 3.9 3.5 - 5.0 mEq/L [facility] Chloride 98 96 - 110 mEq/L [facility] CO2 25 24 - 32 mEq/L [facility] 05/27/2008 6:45 EST 05/27/2008 6:55 EST us Jose Alejandro Castro MD CHEMISTRY & BLOOD GAS ORDERABLE S Final Result Performing Organization Address [facility] de Phone Number [facility] [address] [place] [address] * CREATININE (05/27/2008 3:00 EST) Creatinine 0.60 0.6 - 1.2 mg/dl [facility] GFR, Calculated Age <18 ml/min/1.7 3m2 [facility] 05/27/2008 3:00 EST 05/27/2008 3:06 EST Jose Alejandro Castro MD CHEMISTRY & BLOOD GAS ORDERABLE S Final Result Performing Organization Address [facility] de Phone Number [facility] [address] [place] [address] * (ABNORMAL) BUN (05/27/2008 3:00 EST) BUN 22(H) 8 - 21 mg/dl [facility] 05/27/2008 3:00 EST 05/27/2008 3:06 EST Jose Alejandro Castro MD CHEMISTRY & BLOOD GAS ORDERABLE S Final Result Performing Organization Address [facility] de Phone Number [facility] [address] [place] [address] * (ABNORMAL) ELECTROLYTES (05/27/2008 3:00 EST) Sodium 132(L) 136 - 145 mEq/L [facility] Potassium 4.1 3.5 - 5.0 mEq/L [facility] Chloride 98 96 - 110 mEq/L [facility] CO2 26 24 - 32 mEq/L [facility] 05/27/2008 3:00 EST 05/27/2008 3:06 EST Jose Alejandro Castro MD CHEMISTRY & BLOOD GAS ORDERABLE S Final Result Performing Organization Address [facility] de Phone Number [facility] [address] [place] [address] * (ABNORMAL) ELECTROLYTES (05/26/2008 23:04 EST) Sodium [...] ORDERABLE S Final Result Performing Organization Address [facility] de Phone Number [facility] [address] [place] [address] * ELECTROLYTES (05/26/2008 19:14 EST) Sodium 136 [...] Final Result Performing Organization Address [facility] de Phone Number [facility] [address] [place] [address] * (ABNORMAL) ELECTROLYTES (05/26/2008 15:47 EST) Sodium [...] ORDERABLE S Final Result Performing Organization Address [facility] de Phone Number [facility] [facility] [address] [place] [address] * GLUCOSE, GLUCOMETER (05/26/2008 15:44 EST) Glucose, Fingerstick 98 70 - 100 mg/dl [facility] [place] [id number] Test Performed by Nursing Services [facility] 05/26/2008 15:4 4 EST 05/26/2008 23:27 EST Jose Alejandro Castro MD CHEMISTRY & BLOOD GAS ORDERABLE S Final Result Performing Organization Address [facility] Phone Number [facility] [address] [place] [address] * ELECTROLYTES (05/26/2008 11:50 EST) Sodium 136 136 - 145 mEq/L [facility] Potassium 4.4 3.5 - 5.0 mEq/L [facility] Chloride 100 96 - 110 mEq/L [facility] CO2 24 24 - 32 mEq/L [facility] 05/26/2008 11:5 0 EST 05/26/2008 11:50 EST Jose Alejandro Castro MD CHEMISTRY & BLOOD GAS ORDERABLE S Final Result Performing Organization Address [facility] Phone Number [facility] [address] [place] [address] * (ABNORMAL) GLUCOSE, GLUCOMETER (05/26/2008 11:39 EST) Glucose, Fingerstick 107(H) 70 - 100 mg/dl [facility] [place] [id number] Test Performed by Nursing Services [facility] 05/26/2008 11:3 9 EST 05/26/2008 23:27 EST Jose Alejandro Castro MD CHEMISTRY & BLOOD GAS ORDERABLE S Final Result Performing Organization Address [facility] Phone Number [facility] [address] [place] [address] * ELECTROLYTES (05/26/2008 7:09 EST) Sodium 138 136 - 145 mEq/L [facility] Potassium 4.5 3.5 - 5.0 mEq/L [facility] Chloride 102 96 - 110 mEq/L [facility] CO2 25 24 - 32 mEq/L [facility] 05/26/2008 7:09 EST 05/26/2008 7:09 EST Jose Alejandro Castro MD CHEMISTRY & BLOOD GAS ORDERABLE S Final Result [facility] [address] [place] [address] * GLUCOSE, SERUM (05/26/2008 2:58 EST) Glucose, Serum 79 70 - 100 mg/dl [facility] Comment:Slightly lipemic 05/26/2008 2:58 EST 05/26/2008 2:58 EST Jose Alejandro Castro MD CHEMISTRY & BLOOD GAS ORDERABLE S Final Result Performing Organization Address [facility]/ZIP Co de Phone Number [facility] [address] [place] [address] * CREATININE (05/26/2008 2:58 EST) Creatinine 0.70 0.6 - 1.2 mg/dl [facility] Comment:Slightly lipemic GFR, Calculated Age <18 Slightly lipemic ml/min/1. 73m2 [facility] 05/26/2008 2:58 EST 05/26/2008 2:58 EST Jose Alejandro Castro MD CHEMISTRY & BLOOD GAS ORDERABLE S Final Result Performing Organization Address City/[facility]/ZIP Co de Phone Number [facility] [address] [place] [address] * BUN (05/26/2008 2:58 EST) BUN 17 8 - 21 mg/dl [facility] Comment:Slightly lipemic 05/26/2008 2:58 EST 05/26/2008 2:58 EST Jose Alejandro Castro MD CHEMISTRY & BLOOD GAS ORDERABLE S Final Result [facility] [address] [place] [address] * ELECTROLYTES (05/26/2008 2:58 EST) Sodium 137 [...] ORDERABLE S Final Result Performing Organization Address [facility] de Phone Number [facility] [address] [place] [address] * ELECTROLYTES (05/26/2008 0:00 EST) Sodium 139 [...] Final Result Performing Organization Address [facility] de Phone Number [facility] [address] [place] [address] * (ABNORMAL) ELECTROLYTES (05/25/2008 19:59 EST) Sodium [...] ORDERABLE S Final Result Performing Organization Address City/[facility] de Phone Number [facility] [address] [place] [address] * ELECTROLYTES (05/25/2008 16:20 EST) Sodium 137 136 - 145 mEq/L [facility] Potassium 4.4 3.5 - 5.0 mEq/L [facility] Chloride 98 96 - 110 mEq/L [facility] CO2 26 24 - 32 mEq/L [facility] 05/25/2008 16:2 0 EST 05/25/2008 16:20 EST us Jose Alejandro Castro MD CHEMISTRY & BLOOD GAS ORDERABLE S Final Result Performing Organization Address [facility] de Phone Number [facility] [address] [place] [address] * ELECTROLYTES (05/25/2008 13:05 EST) Sodium 138 136 - 145 mEq/L [facility] Potassium 4.5 3.5 - 5.0 mEq/L [facility] Chloride 98 96 - 110 mEq/L [facility] CO2 26 24 - 32 mEq/L [facility] 05/25/2008 13:0 5 EST 05/25/2008 13:05 EST us Jose Alejandro Castro MD CHEMISTRY & BLOOD GAS ORDERABLE S Final Result Performing Organization Address [facility] de Phone Number [facility] [address] [place] [address] * GLUCOSE, GLUCOMETER (05/25/2008 13:00 EST) Glucose, Fingerstick 88 70 - 100 mg/dl [facility] [place] [id number] Test Performed by Nursing Services [facility] 05/25/2008 13:0 0 EST 05/25/2008 23:23 EST us Jose Alejandro Castro MD CHEMISTRY & BLOOD GAS ORDERABLE S Final Result Performing Organization Address [facility] Co de Phone Number [facility] [address] [place] [address] * MRSA MOLECULAR DETECTION (05/25/2008 12:40 EST) Specimen Description Tomás [facility]CHHILDA [facility] Result NEGATIVE for Methicillin Resistant Staphylococcus aureus DNA by PCR. [facility] Report Status Final 05/26/2008 [facility] 05/25/2008 12:4 0 EST 05/25/2008 14:30 EST Jose Alejandro Castro MD MICROBIOLOGY - GENERAL ORDERABL ES Final Result Performing Organization Address [facility] Co de Phone Number [facility] [address] [place] [address] * ELECTROLYTES (05/25/2008 10:00 EST) Sodium 139 136 - 145 mEq/L [facility] Potassium 4.5 3.5 - 5.0 mEq/L [facility] Chloride 101 96 - 110 mEq/L [facility] CO2 26 24 - 32 mEq/L [facility] 05/25/2008 10:0 0 EST 05/25/2008 10:00 EST Jose Alejandro Castro MD CHEMISTRY & BLOOD GAS ORDERABLE S Final Result Performing Organization Address [facility] de Phone Number [facility] [address] [place] [address] * (ABNORMAL) ELECTROLYTES (05/25/2008 5:52 EST) Sodium [...] ORDERABLE S Final Result Performing Organization Address City/[facility] Co de Phone Number [facility] [address] [place] [address] * GLUCOSE, SERUM (05/25/2008 2:54 EST) Glucose, Serum 75 70 - 100 mg/dl [facility] 05/25/2008 2:54 EST 05/25/2008 2:56 EST Jose Alejandro Castro MD CHEMISTRY & BLOOD GAS ORDERABLE S Final Result Performing Organization Address [facility] Co de Phone Number [facility] [address] [place] [address] * BUN (05/25/2008 2:54 EST) BUN 16 8 - 21 mg/dl [facility] 05/25/2008 2:54 EST 05/25/2008 2:56 EST Jose Alejandro Castro MD CHEMISTRY & BLOOD GAS ORDERABLE S Final Result Performing Organization Address [facility] Co de Phone Number [facility] [address] [place] [address] * (ABNORMAL) ELECTROLYTES (05/25/2008 2:54 EST) Sodium 132(L) 136 - 145 mEq/L [facility] Potassium 4.4 3.5 - 5.0 mEq/L [facility] Chloride 98 96 - 110 mEq/L [facility] CO2 25 24 - 32 mEq/L [facility] 05/25/2008 2:54 EST 05/25/2008 2:56 EST Jose Alejandro Castro MD CHEMISTRY & BLOOD GAS ORDERABLE S Final Result Performing Organization Address [facility] Co de Phone Number [facility] [address] [place] [address] * (ABNORMAL) ELECTROLYTES (05/24/2008 23:58 EST) Sodium [...] ORDERABLE S Final Result Performing Organization Address [facility] Co de Phone Number [facility] [address] [place] [address] * (ABNORMAL) ELECTROLYTES (05/24/2008 19:45 EST) Sodium [...] Final Result Performing Organization Address [facility] de Phone Number [facility] [address] [place] [address] * ELECTROLYTES (05/24/2008 17:36 EST) Sodium 136 136 - 145 mEq/L [facility] Potassium 4.4 3.5 - 5.0 mEq/L [facility] Chloride 99 96 - 110 mEq/L [facility] CO2 24 24 - 32 mEq/L [facility] 05/24/2008 17:3 6 EST 05/24/2008 17:37 EST Jose Alejandro Castro MD CHEMISTRY & BLOOD GAS ORDERABLE S Final Result Performing Organization Address City/[facility] Co de Phone Number [facility] [address] [place] [address] * ELECTROLYTES (05/24/2008 15:20 EST) Sodium 137 136 - 145 mEq/L [facility] Potassium 4.1 3.5 - 5.0 mEq/L [facility] Chloride 100 96 - 110 mEq/L [facility] CO2 25 24 - 32 mEq/L [facility] 05/24/2008 15:2 0 EST 05/24/2008 15:25 EST Jose Alejandro Castro MD CHEMISTRY & BLOOD GAS ORDERABLE S Final Result Performing Organization Address [facility] de Phone Number [facility] [address] [place] [address] * (ABNORMAL) ELECTROLYTES (05/24/2008 12:00 EST) Sodium 134(L) 136 - 145 mEq/L [facility] Potassium 3.9 3.5 - 5.0 mEq/L [facility] Chloride 97 96 - 110 mEq/L [facility] CO2 24 24 - 32 mEq/L [facility] 05/24/2008 12:0 0 EST 05/24/2008 12:27 EST us Jose Alejandro Castro MD CHEMISTRY & BLOOD GAS ORDERABLE S Final Result Performing Organization Address [facility] de Phone Number [facility] [address] [place] [address] * CREATININE (05/24/2008 9:47 EST) Creatinine 0.60 0.6 - 1.2 mg/dl [facility] GFR, Calculated Age <18 ml/min/1.7 3m2 [facility] 05/24/2008 9:47 EST 05/24/2008 9:47 EST us Jose Alejandro Castro MD CHEMISTRY & BLOOD GAS ORDERABLE S Final Result Performing Organization Address [facility] de Phone Number [facility] [address] [place] [address] * (ABNORMAL) ELECTROLYTES (05/24/2008 9:47 EST) Sodium 134(L) 136 - 145 mEq/L [facility] Potassium 4.5 3.5 - 5.0 mEq/L [facility] Chloride 96 96 - 110 mEq/L [facility] CO2 27 24 - 32 mEq/L [facility] 05/24/2008 9:47 EST 05/24/2008 9:47 EST Jose Alejandro Castro MD CHEMISTRY & BLOOD GAS ORDERABLE S Final Result Performing Organization Address [facility] Co de Phone Number [facility] [address] [place] [address] * (ABNORMAL) GLUCOSE, GLUCOMETER (05/24/2008 7:24 EST) Glucose, Fingerstick 67(L) 70 - 100 mg/dl [facility]r [place] [id number] Test Performed by Nursing Services [facility] 05/24/2008 7:24 EST 05/24/2008 23:10 EST Jose Alejandro Castro MD CHEMISTRY & BLOOD GAS ORDERABLE S Final Result Performing Organization Address [facility] Co de Phone Number [facility] [address] [place] [address] * CREATININE (05/24/2008 6:05 EST) Creatinine 0.60 0.6 - 1.2 mg/dl [facility] GFR, Calculated Age <18 ml/min/1.7 3m2 [facility] 05/24/2008 6:05 EST 05/24/2008 6:11 EST us Jose Alejandro Castro MD CHEMISTRY & BLOOD GAS ORDERABLE S Final Result Performing Organization Address [facility] Co de Phone Number [facility] [address] [place] [address] * TESTS ADDED BY PHONE (05/24/2008 6:05 EST) Tests to be added STAT CREAT [facility] Who Called JOSELUIS Packer FOR DR TONIE [facility] Location Code [id number] [facility] 05/24/2008 6:05 EST 05/24/2008 6:11 EST us Jose Alejandro Castro MD CHEMISTRY & BLOOD GAS ORDERABLE S Final Result Performing Organization Address [facility] Co de Phone Number [facility] [address] [place] [address] * (ABNORMAL) GLUCOSE, SERUM (05/24/2008 6:05 EST) Glucose, Serum 66(L) 70 - 100 mg/dl [facility] 05/24/2008 6:05 EST 05/24/2008 6:11 EST us Jose Alejandro Castro MD CHEMISTRY & BLOOD GAS ORDERABLE S Final Result Performing Organization Address [facility] de Phone Number [facility] [address] [place] [address] * BUN (05/24/2008 6:05 EST) BUN 16 8 - 21 mg/dl [facility] 05/24/2008 6:05 EST 05/24/2008 6:11 EST us Jose Alejandro Castro MD CHEMISTRY & BLOOD GAS ORDERABLE S Final Result Performing Organization Address [facility] de Phone Number [facility] [address] [place] [address] * (ABNORMAL) ELECTROLYTES (05/24/2008 6:05 EST) Sodium 130(L) 136 - 145 mEq/L [facility] Potassium 4.4 3.5 - 5.0 mEq/L [facility] Chloride 96 96 - 110 mEq/L [facility] CO2 26 24 - 32 mEq/L [facility] 05/24/2008 6:05 EST 05/24/2008 6:11 EST us Jose Alejandro Castro MD CHEMISTRY & BLOOD GAS ORDERABLE S Final Result [facility] [address] [place] [address] * (ABNORMAL) ELECTROLYTES (05/24/2008 3:20 EST) Sodium 133(L) 136 - 145 mEq/L [facility] Comment:Slightly lipemic Potassium 4.6 3.5 - 5.0 mEq/L [facility] Comment:Slightly lipemic Chloride 97 96 - 110 mEq/L [facility] Comment:Slightly lipemic CO2 24 24 - 32 mEq/L [facility] Comment:Slightly lipemic 05/24/2008 3:20 EST 05/24/2008 3:24 EST Jose Alejandro Castro MD CHEMISTRY & BLOOD GAS ORDERABLE S Final Result Performing Organization Address [facility]/ZIP Co de Phone Number [facility] [address] [place] [address] * (ABNORMAL) GLUCOSE, GLUCOMETER (05/24/2008 0:07 EST) Glucose, Fingerstick 119(H) 70 - 100 mg/dl [facility] [id number] Test Performed by Nursing Services [facility] 05/24/2008 0:07 EST 05/24/2008 23:10 EST Jose Alejandro Castro MD CHEMISTRY & BLOOD GAS ORDERABLE S Final Result Performing Organization Address [facility]/ZIP Co de Phone Number [facility] [address] [place] [address] * (ABNORMAL) ELECTROLYTES (05/24/2008 0:05 EST) Sodium 134(L) 136 - 145 mEq/L [facility] Comment:Slightly lipemic Potassium 4.6 3.5 - 5.0 mEq/L [facility] Comment:Slightly lipemic Chloride 99 96 - 110 mEq/L [facility] Comment:Slightly lipemic CO2 24 24 - 32 mEq/L [facility] Comment:Slightly lipemic 05/24/2008 0:05 EST 05/24/2008 0:17 EST Jose Alejandro Castro MD CHEMISTRY & BLOOD GAS ORDERABLE S Final Result Performing Organization Address [facility] de Phone Number [facility] [address] [place] [address] * ELECTROLYTES (05/23/2008 21:00 EST) Sodium 138 136 - 145 mEq/L [facility] Potassium 3.8 3.5 - 5.0 mEq/L [facility] Chloride 99 96 - 110 mEq/L [facility] CO2 25 24 - 32 mEq/L [facility] 05/23/2008 21:0 0 EST 05/23/2008 21:07 EST Jose Alejandro Castro MD CHEMISTRY & BLOOD GAS ORDERABLE S Final Result Performing Organization Address [facility] Phone Number [facility] [address] [place] [address] * ELECTROLYTES (05/23/2008 18:24 EST) Sodium 137 136 - 145 mEq/L [facility] Potassium 4.9 3.5 - 5.0 mEq/L [facility] Chloride 99 96 - 110 mEq/L [facility] CO2 27 24 - 32 mEq/L [facility] 05/23/2008 18:2 4 EST 05/23/2008 18:24 EST Jose Alejandro Castro MD CHEMISTRY & BLOOD GAS ORDERABLE S Final Result Performing Organization Address [facility] de Phone Number [facility] [address] [place] [address] * ELECTROLYTES (05/23/2008 15:41 EST) Sodium 137 136 - 145 mEq/L [facility] Potassium 4.1 3.5 - 5.0 mEq/L [facility] Chloride 97 96 - 110 mEq/L [facility] CO2 26 24 - 32 mEq/L [facility] 05/23/2008 15:4 1 EST 05/23/2008 15:41 EST Jose Alejandro Castro MD CHEMISTRY & BLOOD GAS ORDERABLE S Final Result Performing Organization Address [facility] de Phone Number [facility] [address] [place] [address] * ELECTROLYTES (05/23/2008 11:58 EST) Sodium 137 136 - 145 mEq/L [facility] Potassium 3.6 3.5 - 5.0 mEq/L [facility] Chloride 99 96 - 110 mEq/L [facility] CO2 25 24 - 32 mEq/L [facility] 05/23/2008 11:5 8 EST 05/23/2008 11:58 EST Jose Alejandro Castro MD CHEMISTRY & BLOOD GAS ORDERABLE S Final Result Performing Organization Address [facility] de Phone Number [facility] [address] [place] [address] * ELECTROLYTES (05/23/2008 9:15 EST) Sodium 139 136 - 145 mEq/L [facility] Potassium 4.0 3.5 - 5.0 mEq/L [facility] Chloride 100 96 - 110 mEq/L [facility] CO2 26 24 - 32 mEq/L [facility] 05/23/2008 9:15 EST 05/23/2008 9:15 EST Jose Alejandro Castro MD CHEMISTRY & BLOOD GAS ORDERABLE S Final Result Performing Organization Address [facility] de Phone Number [facility] [address] [place] [address] * GLUCOSE, GLUCOMETER (05/23/2008 9:11 EST) Glucose, Fingerstick 90 70 - 100 mg/dl [facility] [id number] Test Performed by Nursing Services [facility] 05/23/2008 9:11 EST 05/23/2008 23:07 EST Jose Alejandro Castro MD CHEMISTRY & BLOOD GAS ORDERABLE S Final Result Performing Organization Address [facility]/State/ZIP Co de Phone Number [facility] [address] [place] [address] * CREATININE (05/23/2008 6:00 EST) Creatinine 0.60 0.6 - 1.2 mg/dl [facility] GFR, Calculated Age <18 ml/min/1.7 3m2 [facility] 05/23/2008 6:00 EST 05/23/2008 6:11 EST Jose Alejandro Castro MD CHEMISTRY & BLOOD GAS ORDERABLE S Final Result Performing Organization Address [facility] Co de Phone Number [facility] [address] [place] [address] * BUN (05/23/2008 6:00 EST) BUN 13 8 - 21 mg/dl [facility] 05/23/2008 6:00 EST 05/23/2008 6:11 EST Jose Alejandro Castro MD CHEMISTRY & BLOOD GAS ORDERABLE S Final Result Performing Organization Address [facility] de Phone Number [facility] [address] [place] [address] * (ABNORMAL) ELECTROLYTES (05/23/2008 6:00 EST) Sodium 134(L) 136 - 145 mEq/L [facility] Potassium 4.4 3.5 - 5.0 mEq/L [facility] Chloride 99 96 - 110 mEq/L [facility] CO2 25 24 - 32 mEq/L [facility] 05/23/2008 6:00 EST 05/23/2008 6:11 EST Jose Alejandro Castro MD CHEMISTRY & BLOOD GAS ORDERABLE S Final Result Performing Organization Address [facility]/ZIP Co de Phone Number [facility] [address] [place] [address] * (ABNORMAL) GLUCOSE, GLUCOMETER (05/23/2008 3:59 EST) Glucose, Fingerstick 105(H) 70 - 100 mg/dl [facility] Fe[facility] [place] [id number] Test Performed by Nursing Services [facility] 05/23/2008 3:59 EST 05/23/2008 23:07 EST Jose Alejandro Castro MD CHEMISTRY & BLOOD GAS ORDERABLE S Final Result Performing Organization Address [facility] Co de Phone Number [facility] [address] [place] [address] * GLUCOSE, SERUM (05/23/2008 3:00 EST) Glucose, Serum 76 70 - 100 mg/dl [facility] 05/23/2008 3:00 EST 05/23/2008 3:05 EST Jose Alejandro Castro MD CHEMISTRY & BLOOD GAS ORDERABLE S Final Result Performing Organization Address [facility] de Phone Number [facility] [address] [place] [address] * (ABNORMAL) ELECTROLYTES (05/23/2008 3:00 EST) Sodium 132(L) 136 - 145 mEq/L [facility] Potassium 4.2 3.5 - 5.0 mEq/L [facility] Chloride 99 96 - 110 mEq/L [facility] CO2 24 24 - 32 mEq/L [facility] 05/23/2008 3:00 EST 05/23/2008 3:05 EST Jose Alejandro Castro MD CHEMISTRY & BLOOD GAS ORDERABLE S Final Result Performing Organization Address [facility] de Phone Number [facility] [address] [place] [address] * (ABNORMAL) GLUCOSE, GLUCOMETER (05/23/2008 0:16 EST) Glucose, Fingerstick 104(H) 70 - 100 mg/dl [facility] ID [id number] Test Performed by Nursing Services [facility] 05/23/2008 0:16 EST 05/23/2008 23:07 EST Jose Alejandro Castro MD CHEMISTRY & BLOOD GAS ORDERABLE S Final Result Performing Organization Address [facility] de Phone Number [facility] [address] [place] [address] * (ABNORMAL) ELECTROLYTES (05/23/2008 0:15 EST) Sodium 133(L) 136 - 145 mEq/L [facility] Potassium 4.1 3.5 - 5.0 mEq/L [facility] Chloride 95(L) 96 - 110 mEq/L [facility] CO2 26 24 - 32 mEq/L [facility] 05/23/2008 0:15 EST 05/23/2008 0:23 EST Jose Alejandro Castro MD CHEMISTRY & BLOOD GAS ORDERABLE S Final Result Performing Organization Address [facility] de Phone Number [facility] [address] [place] [address] * GLUCOSE, SERUM (05/22/2008 21:25 EST) Glucose, Serum 90 70 - 100 mg/dl [facility] 05/22/2008 21:2 5 EST 05/22/2008 21:32 EST Jose Alejandro Castro MD CHEMISTRY & BLOOD GAS ORDERABLE S Final Result Performing Organization Address [facility] de Phone Number [facility] [address] [place] [address] * (ABNORMAL) ELECTROLYTES (05/22/2008 21:25 EST) Sodium [...] ORDERABLE S Final Result Performing Organization Address [facility] Phone Number [facility] [address] [place] [address] * (ABNORMAL) ELECTROLYTES (05/22/2008 18:10 EST) Sodium 134(L) 136 - 145 mEq/L [facility] Potassium 4.5 3.5 - 5.0 mEq/L [facility] Chloride 96 96 - 110 mEq/L [facility] CO2 26 24 - 32 mEq/L [facility] 05/22/2008 18:1 0 EST 05/22/2008 18:12 EST Jose Alejandro Castro MD CHEMISTRY & BLOOD GAS ORDERABLE S Final Result Performing Organization Address [facility] Phone Number [facility] [address] [place] [address] * (ABNORMAL) GLUCOSE, GLUCOMETER (05/22/2008 18:08 EST) Glucose, Fingerstick 101(H) 70 - 100 mg/dl [facility] Fe[place]herer ID [id number] Test Performed by Nursing Services [facility] 05/22/2008 18:0 8 EST 05/22/2008 23:44 EST Jose Alejandro Castro MD CHEMISTRY & BLOOD GAS ORDERABLE S Final Result Performing Organization Address [facility] Phone Number [facility] [address] [place] [address] * (ABNORMAL) ELECTROLYTES (05/22/2008 14:22 EST) Sodium [...] Final Result Performing Organization Address [facility] de Phone Number [facility] [address] [place] [address] * (ABNORMAL) ELECTROLYTES (05/22/2008 10:11 EST) Sodium 135(L) 136 - 145 mEq/L [facility] Comment:Heparinized plasma. Potassium 3.9 3.5 - 5.0 mEq/L [facility] Comment:Heparinized plasma. Chloride 99 96 - 110 mEq/L [facility] Comment:Heparinized plasma. CO2 28 24 - 32 mEq/L [facility] Comment:Heparinized plasma. 05/22/2008 10:1 1 EST 05/22/2008 10:11 EST Jose Alejandro Castro MD CHEMISTRY & BLOOD GAS ORDERABLE S Final Result Performing Organization Address [facility] de Phone Number [facility] [address] [place] [address] * ELECTROLYTES (05/22/2008 6:25 EST) Sodium 136 136 - 145 mEq/L [facility] Potassium 4.1 3.5 - 5.0 mEq/L [facility] Chloride 102 96 - 110 mEq/L [facility] CO2 25 24 - 32 mEq/L [facility] 05/22/2008 6:25 EST 05/22/2008 6:33 EST Jose Alejandro Castro MD CHEMISTRY & BLOOD GAS ORDERABLE S Final Result Performing Organization Address [facility] Co de Phone Number [facility] [address] [place] [address] * CREATININE (05/22/2008 3:15 EST) Creatinine 0.70 0.6 - 1.2 mg/dl [facility] GFR, Calculated Age <18 ml/min/1.7 3m2 [facility] 05/22/2008 3:15 EST 05/22/2008 3:20 EST Jose Alejandro Castro MD CHEMISTRY & BLOOD GAS ORDERABLE S Final Result Performing Organization Address [facility] de Phone Number [facility] [address] [place] [address] * BUN (05/22/2008 3:15 EST) BUN 15 8 - 21 mg/dl [facility] 05/22/2008 3:15 EST 05/22/2008 3:20 EST Jose Alejandro Castro MD CHEMISTRY & BLOOD GAS ORDERABLE S Final Result Performing Organization Address [facility] de Phone Number [facility] [address] [place] [address] * ELECTROLYTES (05/22/2008 3:15 EST) Sodium 137 136 - 145 mEq/L [facility] Potassium 4.2 3.5 - 5.0 mEq/L [facility] Chloride 103 96 - 110 mEq/L [facility] CO2 24 24 - 32 mEq/L [facility] 05/22/2008 3:15 EST 05/22/2008 3:20 EST Result [facility] Jose Alejandro Castro MD CHEMISTRY & BLOOD GAS ORDERABLE S Final Result Performing Organization Address [facility] Co de Phone Number [facility] [address] [place] [address] * GLUCOSE, GLUCOMETER (05/22/2008 3:14 EST) Glucose, Fingerstick 97 70 - 100 mg/dl [facility] [place] [id number] Test Performed by Nursing Services [facility] 05/22/2008 3:14 EST 05/22/2008 23:43 EST Jose Alejandro Castro MD CHEMISTRY & BLOOD GAS ORDERABLE S Final Result Performing Organization Address [facility] Co de Phone Number [facility] [address] [place] [address] * GLUCOSE, GLUCOMETER (05/21/2008 23:09 EST) Glucose, Fingerstick 82 70 - 100 mg/dl [facility] [place] [id number] Test Performed by Nursing Services [facility] 05/21/2008 23:0 9 EST 05/21/2008 23:11 EST Jose Alejandro Castro MD CHEMISTRY & BLOOD GAS ORDERABLE S Final Result Performing Organization Address [facility] [place] de Phone Number [facility] [address] [place] [address] * ELECTROLYTES (05/21/2008 23:05 EST) Sodium 140 136 - 145 mEq/L [facility] Potassium 4.5 3.5 - 5.0 mEq/L [facility] Chloride 105 96 - 110 mEq/L [facility] CO2 24 24 - 32 mEq/L [facility] 05/21/2008 23:0 5 EST 05/21/2008 23:18 EST Jose Alejandro Castro MD CHEMISTRY & BLOOD GAS ORDERABLE S Final Result Performing Organization Address [facility] [place] de Phone Number [facility] [address] [place] [address] * ELECTROLYTES (05/21/2008 19:02 EST) Sodium 141 136 - 145 mEq/L [facility] Potassium 4.1 3.5 - 5.0 mEq/L [facility] Chloride 103 96 - 110 mEq/L [facility] CO2 26 24 - 32 mEq/L [facility] 05/21/2008 19:0 2 EST 05/21/2008 19:04 EST Jose Alejandro Castro MD CHEMISTRY & BLOOD GAS ORDERABLE S Final Result Performing Organization Address [facility] [place] de Phone Number [facility] [address] [place] [address] * ELECTROLYTES (05/21/2008 15:20 EST) Sodium 141 [...] Final Result Performing Organization Address [facility] de Phone Number [facility] [address] [place] [address] * (ABNORMAL) GLUCOSE, GLUCOMETER (05/21/2008 10:49 EST) Glucose, Fingerstick 137(H) 70 - 100 mg/dl [facility] [place] ID [id number] Test Performed by Nursing Services [facility] 05/21/2008 10:4 9 EST 05/21/2008 23:05 EST us Jose Alejandro Castro MD CHEMISTRY & BLOOD GAS ORDERABLE S Final Result Performing Organization Address [facility] de Phone Number [facility] [address] [place] [address] * ELECTROLYTES (05/21/2008 10:44 EST) Sodium 143 [...] ORDERABLE S Final Result Performing Organization Address [facility]/State/ZIP Co de Phone Number [facility] [address] [place] [address] * (ABNORMAL) GLUCOSE, SERUM (05/21/2008 6:17 EST) Glucose, Serum 66(L) 70 - 100 mg/dl [facility] 05/21/2008 6:17 EST 05/21/2008 6:17 EST Jose Alejandro Castro MD CHEMISTRY & BLOOD GAS ORDERABLE S Final Result Performing Organization Address [facility] Co de Phone Number [facility] [address] [place] [address] * CREATININE (05/21/2008 6:17 EST) Pathologist [facility] Creatinine 0.66 0.6 - 1.2 mg/dl [facility] GFR, Calculated Age <18 ml/min/1.7 3m2 [facility] 05/21/2008 6:17 EST 05/21/2008 6:17 EST Jose Alejandro Castro MD CHEMISTRY & BLOOD GAS ORDERABLE S Final Result Performing Organization Address [facility] [place] de Phone Number [facility] [address] [place] [address] * BUN (05/21/2008 6:17 EST) BUN 12 8 - 21 mg/dl [facility] 05/21/2008 6:17 EST 05/21/2008 6:17 EST Jose Alejandro Castro MD CHEMISTRY & BLOOD GAS ORDERABLE S Final Result Performing Organization Address City/[facility]/ZIP Co de Phone Number [facility] [address] [place] [address] * ELECTROLYTES (05/21/2008 6:17 EST) Sodium 142 136 - 145 mEq/L [facility] Potassium 4.3 3.5 - 5.0 mEq/L [facility] Chloride 109 96 - 110 mEq/L [facility] CO2 26 24 - 32 mEq/L [facility] 05/21/2008 6:17 EST 05/21/2008 6:17 EST Jose Alejandro Castro MD CHEMISTRY & BLOOD GAS ORDERABLE S Final Result Performing Organization Address [facility] [place] de Phone Number [facility] [address] [place] [address] * (ABNORMAL) ELECTROLYTES (05/21/2008 2:10 EST) Sodium 144 136 - 145 mEq/L [facility] Potassium 4.9 3.5 - 5.0 mEq/L [facility] Chloride 112(H) 96 - 110 mEq/L [facility] CO2 22(L) 24 - 32 mEq/L [facility] 05/21/2008 2:10 EST 05/21/2008 2:10 EST Jose Alejandro Castro MD CHEMISTRY & BLOOD GAS ORDERABLE S Final Result Performing Organization Address [facility] Co de Phone Number [facility] [address] [place] [address] * GLUCOSE, SERUM (05/20/2008 22:13 EST) Glucose, Serum 89 70 - 100 mg/dl [facility] 05/20/2008 22:1 3 EST 05/20/2008 22:13 EST Jose Alejandro Castro MD CHEMISTRY & BLOOD GAS ORDERABLE S Final Result Performing Organization Address City/[facility] Co de Phone Number [facility] [address] [place] [address] * (ABNORMAL) ELECTROLYTES (05/20/2008 22:13 EST) Sodium [...] ORDERABLE S Final Result Performing Organization Address [facility] de Phone Number [facility] [address] [place] [address] * ELECTROLYTES (05/20/2008 18:35 EST) Sodium 143 [...] ORDERABLE S Final Result Performing Organization Address [facility] Phone Number [facility] [address] [place] [address] * ELECTROLYTES (05/20/2008 15:21 EST) Sodium 140 [...] ORDERABLE S Final Result Performing Organization Address [facility] Phone Number [facility] [address] [place] [address] * ELECTROLYTES (05/20/2008 11:47 EST) Sodium 140 [...] ORDERABLE S Final Result Performing Organization Address City/[facility] Co de Phone Number [facility] [address] [place] [address] * PREALBUMIN (05/20/2008 9:38 EST) Prealbumin 33 mg/dl [facility] 05/20/2008 9:38 EST 05/20/2008 9:38 EST Jose Alejandro Castro MD CHEMISTRY & BLOOD GAS ORDERABLE S Final Result Performing Organization Address City/[facility] Co de Phone Number [facility] [address] [place] [address] * (ABNORMAL) ELECTROLYTES (05/20/2008 9:38 EST) Sodium 133(L) 136 - 145 mEq/L [facility] Potassium 4.8 3.5 - 5.0 mEq/L [facility] Chloride 96 96 - 110 mEq/L [facility] CO2 28 24 - 32 mEq/L [facility] 05/20/2008 9:38 EST 05/20/2008 9:38 EST Jose Alejandro Castro MD CHEMISTRY & BLOOD GAS ORDERABLE S Final Result Performing Organization Address City/[facility]/ZIP Co de Phone Number [facility] [address] [place] [address] * TESTS ADDED BY PHONE (05/20/2008 9:38 EST) Tests to be added PAL[facility] Who Called [facility] Location Code M3 [facility] 05/20/2008 9:38 EST 05/20/2008 9:38 EST Jose Alejandro Castro MD CHEMISTRY & BLOOD GAS ORDERABLE S Final Result Performing Organization Address [facility]/ZIP Co de Phone Number [facility] [address] [place] [address] * (ABNORMAL) ELECTROLYTES (05/20/2008 5:50 EST) Sodium 128(L) 136 - 145 mEq/L [facility] Potassium 4.5 3.5 - 5.0 mEq/L [facility] Chloride 93(L) 96 - 110 mEq/L [facility] CO2 26 24 - 32 mEq/L [facility] 05/20/2008 5:50 EST 05/20/2008 5:58 EST Jose Alejandro Castro MD CHEMISTRY & BLOOD GAS ORDERABLE S Final Result Performing Organization Address [facility] Co de Phone Number [facility] [address] [place] [address] * (ABNORMAL) ELECTROLYTES (05/20/2008 2:50 EST) Sodium 127(L) 136 - 145 mEq/L [facility] Potassium 4.6 3.5 - 5.0 mEq/L [facility] Chloride 92(L) 96 - 110 mEq/L [facility] CO2 26 24 - 32 mEq/L [facility] 05/20/2008 2:50 EST 05/20/2008 2:51 EST Jose Alejandro Castro MD CHEMISTRY & BLOOD GAS ORDERABLE S Final Result Performing Organization Address City/[facility]/ZIP Co de Phone Number [facility] [address] [place] [address] * CREATININE (05/20/2008 0:00 EST) Creatinine 0.70 0.6 - 1.2 mg/dl [facility] GFR, Calculated Age <18 ml/min/1.7 3m2 [facility] 05/20/2008 05/20/2008 0:1 4 EST Jose Alejandro Castro MD CHEMISTRY & BLOOD GAS ORDERABLE S Final Result Performing Organization Address [facility] Co de Phone Number [facility] [address] [place] [address] * BUN (05/20/2008 0:00 EST) BUN 15 8 - 21 mg/dl [facility] 05/20/2008 05/20/2008 0:1 4 EST Jose Alejandro Castro MD CHEMISTRY & BLOOD GAS ORDERABLE S Final Result Performing Organization Address [facility] Co de Phone Number [facility] [address] [place] [address] * (ABNORMAL) ELECTROLYTES (05/20/2008 0:00 EST) Sodium 127(L) 136 - 145 mEq/L [facility] Potassium 4.7 3.5 - 5.0 mEq/L [facility] Chloride 92(L) 96 - 110 mEq/L [facility] CO2 26 24 - 32 mEq/L [facility] 05/20/2008 05/20/2008 0:1 4 EST Jose Alejandro Castro MD CHEMISTRY & BLOOD GAS ORDERABLE S Final Result Performing Organization Address [facility] Co de Phone Number [facility] [address] [place] [address] * (ABNORMAL) ELECTROLYTES (05/19/2008 18:10 EST) Sodium [...] Final Result Performing Organization Address [facility] de Phone Number [facility] [address] [place] [address] * (ABNORMAL) ELECTROLYTES (05/19/2008 13:40 EST) Sodium [...] Final Result Performing Organization Address [facility] de Phone Number [facility] [address] [place] [address] * SODIUM, URINE RANDOM (05/19/2008 12:00 EST) Sodium, Ur 123.0 mEq/L [facility] 05/19/2008 12:0 0 EST 05/19/2008 12:30 EST Jose Alejandro Castro MD URINALYSIS ORDERABLES Final Res ult Performing Organization Address [facility] de Phone Number [facility] [address] [place] [address] * PORTABLE CHEST 1 VIEW (05/19/2008 9:46 [...] Carlito Goodwin MD / Mera Batres MD, - 11/21/2008 picc placed check tip diabetes [...] findings. Jose Alejandro Castro MD IMG DIAGNOSTIC IMAGING ORDERABL ES Final Result * GLUCOSE, GLUCOMETER (05/19/2008 9:38 EST) Glucose, Fingerstick 80 70 - 100 mg/dl [facility] [place] [id number] Test Performed by Nursing Services [facility] 05/19/2008 9:38 EST 05/20/2008 23:05 EST Jose Alejandro Castro MD CHEMISTRY & BLOOD GAS ORDERABLE S Final Result Performing Organization Address [facility] de Phone Number [facility] [address] [place] [address] * (ABNORMAL) ELECTROLYTES (05/19/2008 9:35 EST) Sodium 126(L) 136 - 145 mEq/L [...] Final Result Performing Organization Address [facility] de Phone Number [facility] [address] [place] [address] * (ABNORMAL) ELECTROLYTES (05/19/2008 6:00 EST) Sodium 126(L) 136 - 145 mEq/L [facility] Potassium 4.2 3.5 - 5.0 mEq/L [facility] Chloride 90(L) 96 - 110 mEq/L [facility] CO2 26 24 - 32 mEq/L [facility] 05/19/2008 6:00 EST 05/19/2008 6:04 EST Jose Alejandro Castro MD CHEMISTRY & BLOOD GAS ORDERABLE S Final Result Performing Organization Address [facility] de Phone Number [facility] [address] [place] [address] * GLUCOSE, SERUM (05/19/2008 2:58 EST) Glucose, Serum 72 70 - 100 mg/dl [facility] 05/19/2008 2:58 EST 05/19/2008 2:59 EST Jose Alejandro Castro MD CHEMISTRY & BLOOD GAS ORDERABLE S Final Result Performing Organization Address [facility]/ZIP Co de Phone Number [facility] [address] [place] [address] * CREATININE (05/19/2008 2:58 EST) Creatinine 0.60 0.6 - 1.2 mg/dl [facility] GFR, Calculated Age <18 ml/min/1.7 3m2 [facility] 05/19/2008 2:58 EST 05/19/2008 2:59 EST Jose Alejandro Castro MD CHEMISTRY & BLOOD GAS ORDERABLE S Final Result Performing Organization Address [facility] de Phone Number [facility] [address] [place] [address] * BUN (05/19/2008 2:58 EST) BUN 9 8 - 21 mg/dl [facility] 05/19/2008 2:58 EST 05/19/2008 2:59 EST Jose Alejandro Castro MD CHEMISTRY & BLOOD GAS ORDERABLE S Final Result Performing Organization Address [facility] de Phone Number [facility] [address] [place] [address] * (ABNORMAL) ELECTROLYTES (05/19/2008 2:58 EST) Sodium 127(L) 136 - 145 mEq/L [facility] Potassium 4.1 3.5 - 5.0 mEq/L [facility] Chloride 91(L) 96 - 110 mEq/L [facility] CO2 27 24 - 32 mEq/L [facility] 05/19/2008 2:58 EST 05/19/2008 2:59 EST Jose Alejandro Castro MD CHEMISTRY & BLOOD GAS ORDERABLE S Final Result Performing Organization Address [facility] Co de Phone Number [facility] [address] [place] [address] * OSMOLALITY, URINE (05/18/2008 21:20 EST) Osmolality, Ur 639 MOS/KG [facility] 05/18/2008 21:2 0 EST 05/18/2008 21:23 EST us Jose Alejandro Castro MD URINALYSIS ORDERABLES Final Res ult Performing Organization Address [facility] de Phone Number [facility] [address] [place] [address] * SODIUM, URINE RANDOM (05/18/2008 21:20 EST) Sodium, Ur 289.0 mEq/L [facility] 05/18/2008 21:2 0 EST 05/18/2008 21:23 EST us Jose Alejandro Castro MD URINALYSIS ORDERABLES Final Res ult Performing Organization Address [facility] Phone Number [facility] [address] [place] [id number] * POTASSIUM, URINE RANDOM (05/18/2008 21:20 EST) Potassium, Urine 34.4 mEq/L [facility] 05/18/2008 21:2 0 EST 05/18/2008 21:23 EST us Jose Alejandro Castro MD URINALYSIS ORDERABLES Final Res ult Performing Organization Address [facility] de Phone Number [facility] [address] [place] [address] * CREATININE, URINE RANDOM (05/18/2008 21:20 EST) Creatinine, Urn [place] 25.1 mg/dl [facility] 05/18/2008 21:2 0 EST 05/18/2008 21:23 EST us Jose Alejandro Castro MD URINALYSIS ORDERABLES Final Res ult Performing Organization Address [facility] de Phone Number [facility] [address] [place] [address] * CALCIUM, IONIZED (05/18/2008 21:17 EST) Calcium, Ionized 1.17 1.12 - 1.32 mmol/L [facility] [employer] [place] [id number] Test performed by Chemistry [facility] 05/18/2008 21:1 7 EST 05/18/2008 21:20 EST Jose Alejandro Castro MD CHEMISTRY & BLOOD GAS ORDERABLE S Final Result Performing Organization Address [facility] Co de Phone Number [facility] [address] [place] [address] * GLUCOSE, SERUM (05/18/2008 21:00 EST) Glucose, Serum 77 70 - 100 mg/dl [facility] 05/18/2008 21:0 0 EST 05/18/2008 21:07 EST Jose Alejandro Castro MD CHEMISTRY & BLOOD GAS ORDERABLE S Final Result Performing Organization Address [facility] de Phone Number [facility] [address] [place] [address] * PHOSPHORUS (05/18/2008 21:00 EST) Phosphorus 3.4 2.7 - 4.7 mg/dl [facility] 05/18/2008 21:0 0 EST 05/18/2008 21:07 EST Jose Alejandro Castro MD CHEMISTRY & BLOOD GAS ORDERABLE S Final Result Performing Organization Address [facility] Co de Phone Number [facility] [address] [place] [address] * MAGNESIUM (05/18/2008 21:00 EST) Magnesium 1.8 1.7 - 2.8 mg/dl [facility] 05/18/2008 21:0 0 EST 05/18/2008 21:07 EST Jose Alejandro Castro MD CHEMISTRY & BLOOD GAS ORDERABLE S Final Result Performing Organization Address [facility]/ZIP Co de Phone Number [facility] [address] [place] [address] * CREATININE (05/18/2008 21:00 EST) Creatinine 0.60 0.6 - 1.2 mg/dl [facility] GFR, Calculated Age <18 ml/min/1.7 3m2 [facility] 05/18/2008 21:0 0 EST 05/18/2008 21:07 EST Jose Alejandro Castro MD CHEMISTRY & BLOOD GAS ORDERABLE S Final Result Performing Organization Address [facility] de Phone Number [facility] [address] [place] [address] * BUN (05/18/2008 21:00 EST) BUN 8 8 - 21 mg/dl [facility] 05/18/2008 21:0 0 EST 05/18/2008 21:07 EST Jose Alejandro Castro MD CHEMISTRY & BLOOD GAS ORDERABLE S Final Result Performing Organization Address [facility] de Phone Number [facility] [address] [place] [address] * (ABNORMAL) ELECTROLYTES (05/18/2008 21:00 EST) Sodium 130(L) 136 - 145 mEq/L [facility] Potassium 4.3 3.5 - 5.0 mEq/L [facility] Chloride 93(L) 96 - 110 mEq/L [facility] CO2 28 24 - 32 mEq/L [facility] 05/18/2008 21:0 0 EST 05/18/2008 21:07 EST Jose Alejandro Castro MD CHEMISTRY & BLOOD GAS ORDERABLE S Final Result Performing Organization Address [facility]/ZIP Co de Phone Number [facility] [address] [place] [address] * CALCIUM IONIZED (05/18/2008 21:00 EST) Ionized Calcium Note Sample sent to [facility]. [facility] 05/18/2008 21:0 0 EST 05/18/2008 21:07 EST Jose Alejandro Castro MD CHEMISTRY & BLOOD GAS ORDERABLE S Final Result Performing Organization Address [facility] de Phone Number [facility] [address] [place] [address] * GLUCOSE, GLUCOMETER (05/18/2008 15:50 EST) Glucose, Fingerstick 90 70 - 100 mg/dl [facility] [place] [id number] Test Performed by Nursing Services [facility] 05/18/2008 15:5 0 EST 05/18/2008 23:25 EST us Jose Alejandro Castro MD CHEMISTRY & BLOOD GAS ORDERABLE S Final Result Performing Organization Address [facility] Phone Number [facility] [address] [place] [address] * (ABNORMAL) ELECTROLYTES (05/18/2008 15:48 EST) Sodium 135(L) 136 - 145 mEq/L [facility] Comment:Heparinized plasma. Potassium 4.0 3.5 - 5.0 mEq/L [facility] Comment:Heparinized plasma. Chloride 99 96 - 110 mEq/L [facility] Comment:Heparinized plasma. CO2 27 24 - 32 mEq/L [facility] Comment:Heparinized plasma. 05/18/2008 15:4 8 EST 05/18/2008 16:10 EST us Jose Alejandro Castro MD CHEMISTRY & BLOOD GAS ORDERABLE S Final Result Performing Organization Address [facility] de Phone Number [facility] [address] [place] [address] * GLUCOSE, GLUCOMETER (05/18/2008 9:24 EST) Glucose, Fingerstick 88 70 - 100 mg/dl [facility] [place] [id number] Test Performed by Nursing Services [facility] 05/18/2008 9:24 EST 05/18/2008 23:25 EST Jose Alejandro Castro MD CHEMISTRY & BLOOD GAS ORDERABLE S Final Result Performing Organization Address [facility] de Phone Number [facility] [address] [place] [address] * ELECTROLYTES (05/18/2008 9:20 EST) Sodium 140 136 - 145 mEq/L [facility] Comment:Heparinized plasma. Potassium 3.9 3.5 - 5.0 mEq/L [facility] Comment:Heparinized plasma. Chloride 105 96 - 110 mEq/L [facility] Comment:Heparinized plasma. CO2 26 24 - 32 mEq/L [facility] Comment:Heparinized plasma. 05/18/2008 9:20 EST 05/18/2008 9:30 EST Jose Alejandro Castro MD CHEMISTRY & BLOOD GAS ORDERABLE S Final Result Performing Organization Address [facility] Phone Number [facility] [address] [place] [address] * GLUCOSE, SERUM (05/18/2008 3:00 EST) Glucose, Serum 97 70 - 100 mg/dl [facility] 05/18/2008 3:00 EST 05/18/2008 3:15 EST Jose Alejandro Castro MD CHEMISTRY & BLOOD GAS ORDERABLE S Final Result Performing Organization Address [facility] Co de Phone Number [facility] [address] [place] [address] * CREATININE (05/18/2008 3:00 EST) Creatinine 0.60 0.6 - 1.2 mg/dl [facility] GFR, Calculated Age <18 ml/min/1.7 3m2 [facility] 05/18/2008 3:00 EST 05/18/2008 3:15 EST us Jose Alejandro Castro MD CHEMISTRY & BLOOD GAS ORDERABLE S Final Result Performing Organization Address [facility] Phone Number [facility] [address] [place] [address] * BUN (05/18/2008 3:00 EST) BUN 9 8 - 21 mg/dl [facility] 05/18/2008 3:00 EST 05/18/2008 3:15 EST us Jose Alejandro Castro MD CHEMISTRY & BLOOD GAS ORDERABLE S Final Result Performing Organization Address [facility] Phone Number [facility] [address] [place] [address] * ELECTROLYTES (05/18/2008 3:00 EST) Sodium 142 136 - 145 mEq/L [facility] Potassium 3.5 3.5 - 5.0 mEq/L [facility] Chloride 105 96 - 110 mEq/L [facility] CO2 26 24 - 32 mEq/L [facility] 05/18/2008 3:00 EST 05/18/2008 3:15 EST us Jose Alejandro Castro MD CHEMISTRY & BLOOD GAS ORDERABLE S Final Result Performing Organization Address [facility] de Phone Number [facility] [address] [place] [address] * GLUCOSE, SERUM (05/17/2008 21:10 EST) Glucose, Serum 82 70 - 100 mg/dl [facility] 05/17/2008 21:1 0 EST 05/17/2008 21:30 EST us Jose Alejandro Castro MD CHEMISTRY & BLOOD GAS ORDERABLE S Final Result Performing Organization Address City/[facility]/ZIP Co de Phone Number [facility] [address] [place] [address] * ELECTROLYTES (05/17/2008 21:10 EST) Sodium 142 136 - 145 mEq/L [facility] Potassium 4.1 3.5 - 5.0 mEq/L [facility] Chloride 105 96 - 110 mEq/L [facility] CO2 27 24 - 32 mEq/L [facility] 05/17/2008 21:1 0 EST 05/17/2008 21:30 EST Jose Alejandro Castro MD CHEMISTRY & BLOOD GAS ORDERABLE S Final Result Performing Organization Address [facility] Co de Phone Number [facility] [address] [place] [address] * GLUCOSE, SERUM (05/17/2008 15:00 EST) Glucose, Serum 86 70 - 100 mg/dl [facility] 05/17/2008 15:0 0 EST 05/17/2008 15:16 EST Jose Alejandro Castro MD CHEMISTRY & BLOOD GAS ORDERABLE S Final Result Performing Organization Address [facility] de Phone Number [facility] [address] [place] [address] * ELECTROLYTES (05/17/2008 15:00 EST) Sodium 137 [...] ORDERABLE S Final Result Performing Organization Address [facility] Co de Phone Number [facility] [address] [place] [address] * (ABNORMAL) T4 FREE (05/17/2008 9:00 EST) Free T4 0.7(L) 0.8 - 1.5 ng/dL [facility] 05/17/2008 9:00 EST 05/17/2008 9:29 EST Jose Alejandro Castro MD CHEMISTRY & BLOOD GAS ORDERABLE S Final Result Performing Organization Address [facility] Phone Number [facility] [address] [place] [address] * TESTS ADDED BY PHONE (05/17/2008 9:00 EST) Pathologist [facility] Tests to be added FT4 [facility] Who Called [facility] Location Code M3 [facility] 05/17/2008 9:00 EST 05/17/2008 9:29 EST Jose Alejandro Castro MD CHEMISTRY & BLOOD GAS ORDERABLE S Final Result Performing Organization Address [facility] Phone Number [facility] [address] [place] [address] * GLUCOSE, SERUM (05/17/2008 9:00 EST) [facility] Glucose, Serum 87 70 - 100 mg/dl [facility] Comment:Heparinized plasma. 05/17/2008 9:00 EST 05/17/2008 9:29 EST Jose Alejandro Castro MD CHEMISTRY & BLOOD GAS ORDERABLE S Final Result Performing Organization Address [facility] Phone Number [facility] [address] [place] [address] * (ABNORMAL) ELECTROLYTES (05/17/2008 9:00 EST) [facility] Sodium 135(L) 136 - 145 mEq/L [facility] [...] Final Result Performing Organization Address [facility] de Phone Number [facility] [address] [place] [address] * HOLD GREEN TOP (05/17/2008 5:48 EST) Hold Green Top Hold for further testing. Specimen will be held for 5 days. [facility] 05/17/2008 5:48 EST 05/17/2008 5:48 EST Jose Alejandro Castro MD LAB INFO SERVICE AND SUPPORT & PHONE RESULT Final Result Performing Organization Address [facility] de Phone Number [facility] [address] [place] [address] * HOLD PURPLE TOP (05/17/2008 5:46 EST) Hold Purple Top EDTA for hematology will be discarded after 48 hours, differential not available after 12 hours. [facility] 05/17/2008 5:46 EST 05/17/2008 5:46 EST Jose Alejandro Csatro MD LAB INFO SERVICE AND SUPPORT & PHONE RESULT Final Result Performing Organization Address [facility] de Phone Number [facility] [address] [place] [address] * (ABNORMAL) HEMAGRAM (05/17/2008 5:46 EST) WBC 9.92 4.6 - 11.2 K/cmm [facility] RBC 3.69(L) 4.50 - 5.30 M/cmm [facility] Hemoglobin 9.9(L) 13.0 - 16.0 gm/dl [facility] HCT 29.2(L) 37.0 - 49.0 % [facility] MCV 79 78 - 98 fl [facility] MCH 26.7 pg [facility] MCHC 33.7 gm/dl [facility] PLT 638(H) 156 - 312 K/cmm [facility] RDW-CV 17.2 % [facility] 05/17/2008 5:46 EST 05/17/2008 5:46 EST Jose Alejandro Castro MD HEMATOLOGY & PF4 ORDERABLES Fin al Result Performing Organization Address [facility] Co de Phone Number [facility] [address] [place] [address] * GLUCOSE, SERUM (05/17/2008 5:46 EST) Glucose, Serum 76 70 - 100 mg/dl [facility] 05/17/2008 5:46 EST 05/17/2008 5:46 EST Jose Alejandro Castro MD CHEMISTRY & BLOOD GAS ORDERABLE S Final Result Performing Organization Address [facility] de Phone Number [facility] [address] [place] [address] * CREATININE (05/17/2008 5:46 EST) Creatinine 0.60 0.6 - 1.2 mg/dl [facility] GFR, Calculated Age <18 ml/min/1.7 3m2 [facility] 05/17/2008 5:46 EST 05/17/2008 5:46 EST Jose Alejandro Castro MD CHEMISTRY & BLOOD GAS ORDERABLE S Final Result Performing Organization Address [facility] de Phone Number [facility] [address] [place] [address] * (ABNORMAL) BUN (05/17/2008 5:46 EST) BUN 7(L) 8 - 21 mg/dl [facility] 05/17/2008 5:46 EST 05/17/2008 5:46 EST us Jose Alejandro Castro MD CHEMISTRY & BLOOD GAS ORDERABLE S Final Result Performing Organization Address [facility] de Phone Number [facility] [address] [place] [address] * ELECTROLYTES (05/17/2008 5:46 EST) Sodium 137 136 - 145 mEq/L [facility] Potassium 4.0 3.5 - 5.0 mEq/L [facility] Chloride 101 96 - 110 mEq/L [facility] CO2 26 24 - 32 mEq/L [facility] 05/17/2008 5:46 EST 05/17/2008 5:46 EST us Jose Alejandro Castro MD CHEMISTRY & BLOOD GAS ORDERABLE S Final Result Performing Organization Address [facility] Phone Number [facility] [address] [place] [address] * GLUCOSE, SERUM (05/17/2008 2:09 EST) Glucose, Serum 79 70 - 100 mg/dl [facility] 05/17/2008 2:09 EST 05/17/2008 2:09 EST us Jose Alejandro Castro MD CHEMISTRY & BLOOD GAS ORDERABLE S Final Result Performing Organization Address [facility] de Phone Number [facility] [address] [place] [address] * ELECTROLYTES (05/17/2008 2:09 EST) Sodium 140 136 - 145 mEq/L [facility] Potassium 4.5 3.5 - 5.0 mEq/L [facility] Chloride 105 96 - 110 mEq/L [facility] CO2 26 24 - 32 mEq/L [facility] 05/17/2008 2:09 EST 05/17/2008 2:09 EST us Jose Alejandro Castro MD CHEMISTRY & BLOOD GAS ORDERABLE S Final Result Performing Organization Address [facility] Co de Phone Number [facility] [address] [place] [address] * GLUCOSE, SERUM (05/16/2008 22:09 EST) Glucose, Serum 92 70 - 100 mg/dl [facility] 05/16/2008 22:0 9 EST 05/16/2008 22:09 EST Jose Alejandro Castro MD CHEMISTRY & BLOOD GAS ORDERABLE S Final Result Performing Organization Address [facility] de Phone Number [facility] [address] [place] [address] * ELECTROLYTES (05/16/2008 22:09 EST) Sodium 144 136 - 145 mEq/L [facility] Potassium 3.8 3.5 - 5.0 mEq/L [facility] Chloride 108 96 - 110 mEq/L [facility] CO2 26 24 - 32 mEq/L [facility] 05/16/2008 22:0 9 EST 05/16/2008 22:09 EST Jose Alejandro Castro MD CHEMISTRY & BLOOD GAS ORDERABLE S Final Result Performing Organization Address [facility] Phone Number [facility] [address] [place] [address] * (ABNORMAL) GLUCOSE, SERUM (05/16/2008 18:53 EST) Glucose, Serum 106(H) 70 - 100 mg/dl [facility] 05/16/2008 18:5 3 EST 05/16/2008 18:54 EST Jose Alejandro Castro MD CHEMISTRY & BLOOD GAS ORDERABLE S Final Result Performing Organization Address [facility] de Phone Number [facility] [address] [place] [address] * ELECTROLYTES (05/16/2008 18:53 EST) Sodium 138 136 - 145 mEq/L [facility] Potassium 3.7 3.5 - 5.0 mEq/L [facility] Chloride 102 96 - 110 mEq/L [facility] CO2 26 24 - 32 mEq/L [facility] 05/16/2008 18:5 3 EST 05/16/2008 18:54 EST Jose Alejandro Castro MD CHEMISTRY & BLOOD GAS ORDERABLE S Final Result Performing Organization Address [facility] de Phone Number [facility] [address] [place] [address] * (ABNORMAL) GLUCOSE, SERUM (05/16/2008 16:00 EST) Glucose, Serum 63(L) 70 - 100 mg/dl [facility] 05/16/2008 16:0 0 EST 05/16/2008 16:27 EST Jose Alejandro Castro MD CHEMISTRY & BLOOD GAS ORDERABLE S Final Result Performing Organization Address [facility] Phone Number [facility] [address] [place] [address] * (ABNORMAL) ELECTROLYTES (05/16/2008 16:00 EST) Sodium [...] Final Result Performing Organization Address [facility] de Phone Number [facility] [address] [place] [address] * (ABNORMAL) GLUCOSE, SERUM (05/16/2008 12:59 EST) Glucose, Serum 101(H) 70 - 100 mg/dl [facility] 05/16/2008 12:5 9 EST 05/16/2008 12:59 EST Jose Alejandro Castro MD CHEMISTRY & BLOOD GAS ORDERABLE S Final Result Performing Organization Address [facility] Co de Phone Number [facility] [address] [place] [address] * (ABNORMAL) ELECTROLYTES (05/16/2008 12:59 EST) Sodium [...] ORDERABLE S Final Result Performing Organization Address [facility] Co de Phone Number [facility] [address] [place] [address] * GLUCOSE, SERUM (05/16/2008 9:58 EST) Glucose, Serum 82 70 - 100 mg/dl [facility] 05/16/2008 9:58 EST 05/16/2008 9:58 EST Jose Alejandro Castro MD CHEMISTRY & BLOOD GAS ORDERABLE S Final Result Performing Organization Address [facility] Co de Phone Number [facility] [address] [place] [address] * (ABNORMAL) ELECTROLYTES (05/16/2008 9:58 EST) Sodium 138 136 - 145 mEq/L [facility] Potassium 4.4 3.5 - 5.0 mEq/L [facility] Chloride 106 96 - 110 mEq/L [facility] CO2 22(L) 24 - 32 mEq/L [facility] 05/16/2008 9:58 EST 05/16/2008 9:58 EST Jose Alejandro Castro MD CHEMISTRY & BLOOD GAS ORDERABLE S Final Result Performing Organization Address [facility] Co de Phone Number [facility] [address] [place] [address] * GLUCOSE, SERUM (05/16/2008 6:50 EST) Glucose, Serum 77 70 - 100 mg/dl [facility] 05/16/2008 6:50 EST 05/16/2008 7:05 EST Jose Alejandro Castro MD CHEMISTRY & BLOOD GAS ORDERABLE S Final Result Performing Organization Address [facility] de Phone Number [facility] [address] [place] [address] * ELECTROLYTES (05/16/2008 6:50 EST) Sodium 138 136 - 145 mEq/L [facility] Potassium 4.2 3.5 - 5.0 mEq/L [facility] Chloride 105 96 - 110 mEq/L [facility] CO2 26 24 - 32 mEq/L [facility] 05/16/2008 6:50 EST 05/16/2008 7:05 EST Jose Alejandro Castro MD CHEMISTRY & BLOOD GAS ORDERABLE S Final Result Performing Organization Address [facility] de Phone Number [facility] [address] [place] [address] * TESTS ADDED BY PHONE (05/16/2008 4:15 EST) Tests to be added HIVS,HBAG,HC AB CHARGE TO [id number] [facility] Who Called [facility] Location Code [facility] 05/16/2008 4:15 EST 05/16/2008 4:23 EST Jose Alejandro Castro MD CHEMISTRY & BLOOD GAS ORDERABLE S Final Result Performing Organization Address [facility]/ZIP Co de Phone Number [facility] [address] [place] [address] * TESTS ADDED BY PHONE (05/16/2008 4:15 EST) Tests to be added [facility] [id number] [facility] Who Called [email or web address] Location Code [facility] 05/16/2008 4:15 EST 05/16/2008 4:23 EST Jose Alejandro Castro MD CHEMISTRY & BLOOD GAS ORDERABLE S Final Result [facility] [address] [place] [address] * (ABNORMAL) TOTAL PROTEIN (05/16/2008 4:15 EST) Total Protein 5.5(L) 6.3 - 8.6 g/dl [facility] 05/16/2008 4:15 EST 05/16/2008 4:23 EST Jose Alejandro Castro MD CHEMISTRY & BLOOD GAS ORDERABLE S Final Result Performing Organization Address [facility]/ZIP Co de Phone Number [facility] [address] [place] [address] * GLUCOSE, SERUM (05/16/2008 4:15 EST) Glucose, Serum 100 70 - 100 mg/dl [facility] 05/16/2008 4:15 EST 05/16/2008 4:23 EST Jose Alejandro Castro MD CHEMISTRY & BLOOD GAS ORDERABLE S Final Result [facility] [address] [place] [address] * CREATININE (05/16/2008 4:15 EST) Creatinine 0.60 0.6 - 1.2 mg/dl [facility] GFR, Calculated Age <18 ml/min/1.7 3m2 [facility] 05/16/2008 4:15 EST 05/16/2008 4:23 EST us Jose Alejandro Castro MD CHEMISTRY & BLOOD GAS ORDERABLE S Final Result Performing Organization Address [facility] Co de Phone Number [facility] [address] [place] [address] * BUN (05/16/2008 4:15 EST) BUN 9 8 - 21 mg/dl [facility] 05/16/2008 4:15 EST 05/16/2008 4:23 EST us Jose Alejandro Castro MD CHEMISTRY & BLOOD GAS ORDERABLE S Final Result Performing Organization Address [facility] de Phone Number [facility] [address] [place] [address] * TOTAL & DIRECT BILIRUBIN (05/16/2008 4:15 EST) Conjugated Bilirubin 0.0 0.0 - 0.3 mg/dl [facility] Unconjugated Bilirubin 0.7 0.1 - 1.1 mg/dl [facility] Bilirubin, Total 0.7 0.0 - 1.4 mg/dl [facility] 05/16/2008 4:15 EST 05/16/2008 4:23 EST us Jose Alejandro Castro MD CHEMISTRY & BLOOD GAS ORDERABLE S Final Result Performing Organization Address [facility] Co de Phone Number [facility] [address] [place] [address] * AST (05/16/2008 4:15 EST) AST 25 15 - 46 U/L [facility] 05/16/2008 4:15 EST 05/16/2008 4:23 EST us Jose Alejandro Castro MD CHEMISTRY & BLOOD GAS ORDERABLE S Final Result Performing Organization Address [facility]/ZIP Co de Phone Number [facility] [address] [place] [address] * ALT (05/16/2008 4:15 EST) ALT 41 0 - 45 U/L [facility] 05/16/2008 4:15 EST 05/16/2008 4:23 EST Jose Alejandro Castro MD CHEMISTRY & BLOOD GAS ORDERABLE S Final Result Performing Organization Address [facility] de Phone Number [facility] [address] [place] [address] * ALKALINE PHOSPHATASE (05/16/2008 4:15 EST) Alkaline Phosphatase 96 65 - 260 U/L [facility] 05/16/2008 4:15 EST 05/16/2008 4:23 EST Jose Alejandro Castro MD CHEMISTRY & BLOOD GAS ORDERABLE S Final Result Performing Organization Address [facility] Phone Number [facility] [address] [place] [address] * (ABNORMAL) ALBUMIN (05/16/2008 4:15 EST) Albumin 2.7(L) 3.0 - 5.5 g/dl [facility] 05/16/2008 4:15 EST 05/16/2008 4:23 EST Jose Alejandro Castro MD CHEMISTRY & BLOOD GAS ORDERABLE S Final Result Performing Organization Address [facility] Phone Number [facility] [address] [place] [address] * ELECTROLYTES (05/16/2008 4:15 EST) Sodium 138 136 - 145 mEq/L [facility] Potassium 4.3 3.5 - 5.0 mEq/L [facility] Chloride 106 96 - 110 mEq/L [facility] CO2 25 24 - 32 mEq/L [facility] 05/16/2008 4:15 EST 05/16/2008 4:23 EST Jose Alejandro Castro MD CHEMISTRY & BLOOD GAS ORDERABLE S Final Result [facility] [address] [place] [address] * GLUCOSE, SERUM (05/16/2008 1:05 EST) Glucose, Serum 85 70 - 100 mg/dl [facility] 05/16/2008 1:05 EST 05/16/2008 1:32 EST Jose Alejandro Castro MD CHEMISTRY & BLOOD GAS ORDERABLE S Final Result Performing Organization Address [facility] Co de Phone Number [facility] [address] [place] [address] * ELECTROLYTES (05/16/2008 1:05 EST) Sodium 140 136 - 145 mEq/L [facility] Potassium 4.0 3.5 - 5.0 mEq/L [facility] Chloride 107 96 - 110 mEq/L [facility] CO2 26 24 - 32 mEq/L [facility] 05/16/2008 1:05 EST 05/16/2008 1:32 EST Jose Alejandro Castro MD CHEMISTRY & BLOOD GAS ORDERABLE S Final Result Performing Organization Address [facility] Co de Phone Number [facility] [address] [place] [address] * GLUCOSE, SERUM (05/15/2008 22:35 EST) Glucose, Serum 70 70 - 100 mg/dl [facility] 05/15/2008 22:3 5 EST 05/15/2008 22:43 EST Jose Alejandro Castro MD CHEMISTRY & BLOOD GAS ORDERABLE S Final Result Performing Organization Address [facility]/ZIP Co de Phone Number [facility] [address] [place] [address] * ELECTROLYTES (05/15/2008 22:35 EST) Sodium 140 [...] Final Result Performing Organization Address [facility] de Phone Number [facility] [address] [place] [address] * GLUCOSE, SERUM (05/15/2008 19:35 EST) Glucose, Serum 87 70 - 100 mg/dl [facility] 05/15/2008 19:3 5 EST 05/15/2008 19:38 EST Jose Alejandro Castro MD CHEMISTRY & BLOOD GAS ORDERABLE S Final Result Performing Organization Address [facility] de Phone Number [facility] [address] [place] [address] * ELECTROLYTES (05/15/2008 19:35 EST) Sodium 137 [...] Final Result Performing Organization Address [facility] de Phone Number [facility] [address] [place] [address] * XRAY FEEDING TUBE PLACEMENT (05/15/2008 18:28 [...] Result * GLUCOSE, GLUCOMETER (05/15/2008 17:29 EST) Glucose, Fingerstick 90 70 - 100 mg/dl [facility] [place] [id number] Test Performed by Nursing Services [facility] 05/15/2008 17:2 9 EST 05/15/2008 23:00 EST Jose Alejandro Castro MD CHEMISTRY & BLOOD GAS ORDERABLE S Final Result [facility] [address] [place] [address] * (ABNORMAL) GLUCOSE, SERUM (05/15/2008 16:32 EST) Glucose, Serum 68(L) 70 - 100 mg/dl [facility] 05/15/2008 16:3 2 EST 05/15/2008 16:32 EST Jose Alejandro Castro MD CHEMISTRY & BLOOD GAS ORDERABLE S Final Result Performing Organization Address [facility] Phone Number [facility] [address] [place] [address] * (ABNORMAL) ELECTROLYTES (05/15/2008 16:32 EST) Sodium 130(L) 136 - 145 mEq/L [facility] Potassium 4.4 3.5 - 5.0 mEq/L [facility] Chloride 96 96 - 110 mEq/L [facility] CO2 26 24 - 32 mEq/L [facility] 05/15/2008 16:3 2 EST 05/15/2008 16:32 EST Jose Alejandro Castro MD CHEMISTRY & BLOOD GAS ORDERABLE S Final Result Performing Organization Address [facility] Phone Number [facility] [address] [place] [address] * (ABNORMAL) ELECTROLYTES (05/15/2008 13:28 EST) [facility] Sodium 128(L) 136 - 145 mEq/L [facility] [...] ORDERABLE S Final Result Performing Organization Address [facility] Phone Number [facility] [address] [place] [address] * GLUCOSE, GLUCOMETER (05/15/2008 13:26 EST) Glucose, Fingerstick 70 70 - 100 mg/dl [facility] [id number] Test Performed by Nursing Services [facility] 05/15/2008 13:2 6 EST 05/15/2008 23:00 EST Jose Alejandro Castro MD CHEMISTRY & BLOOD GAS ORDERABLE S Final Result Performing Organization Address [facility] Phone Number [facility] [address] [place] [address] * (ABNORMAL) ELECTROLYTES (05/15/2008 10:05 EST) Sodium 125(L) 136 - 145 mEq/L [facility] Potassium 4.2 3.5 - 5.0 mEq/L [facility] Chloride 91(L) 96 - 110 mEq/L [facility] CO2 26 24 - 32 mEq/L [facility] 05/15/2008 10:0 5 EST 05/15/2008 10:05 EST us Jose Alejandro Castro MD CHEMISTRY & BLOOD GAS ORDERABLE S Final Result Performing Organization Address [facility] Phone Number [facility] [address] [place] [address] * GLUCOSE, GLUCOMETER (05/15/2008 10:00 EST) Glucose, Fingerstick 99 70 - 100 mg/dl [facility] [place] [id number] Test Performed by Nursing Services [facility] 05/15/2008 10:0 0 EST 05/15/2008 23:00 EST us Jose Alejandro Castro MD CHEMISTRY & BLOOD GAS ORDERABLE S Final Result Performing Organization Address [facility] Phone Number [facility] [address] [place] [address] * (ABNORMAL) GLUCOSE, GLUCOMETER (05/15/2008 8:35 EST) Glucose, Fingerstick 113(H) 70 - 100 mg/dl [facility] [place] [id number] Test Performed by Nursing Services [facility] 05/15/2008 8:35 EST 05/15/2008 23:00 EST us Jose Alejandro Castro MD CHEMISTRY & BLOOD GAS ORDERABLE S Final Result Performing Organization Address [facility] Co de Phone Number [facility] [address] [place] [address] * OSMOLALITY, URINE (05/15/2008 8:09 EST) Osmolality, Ur 298 MOS/KG [facility] 05/15/2008 8:09 EST 05/15/2008 8:09 EST Jose Alejandro Castro MD URINALYSIS ORDERABLES Final Res ult Performing Organization Address [facility] de Phone Number [facility] [address] [place] [address] * SODIUM, URINE RANDOM (05/15/2008 8:09 EST) Sodium, Ur 133.0 mEq/L [facility] 05/15/2008 8:09 EST 05/15/2008 8:09 EST Jose Alejandro Castro MD URINALYSIS ORDERABLES Final Res ult Performing Organization Address [facility] de Phone Number [facility] [address] [place] [address] * POTASSIUM, URINE RANDOM (05/15/2008 8:09 EST) Potassium, Urine 6.4 mEq/L [facility] 05/15/2008 8:09 EST 05/15/2008 8:09 EST us Jose Alejandro Castro MD URINALYSIS ORDERABLES Final Res ult Performing Organization Address [facility] de Phone Number [facility] [address] [place] [address] * CREATININE, URINE RANDOM (05/15/2008 8:09 EST) Creatinine, Urn [place] 12.8 mg/dl [facility] 05/15/2008 8:09 EST 05/15/2008 8:09 EST us Jose Alejandro Castro MD URINALYSIS ORDERABLES Final Res ult Performing Organization Address [facility]/State/ZIP Co de Phone Number [facility] [address] [place] [address] * (ABNORMAL) ALBUMIN (05/15/2008 6:40 EST) Albumin 2.7(L) 3.0 - 5.5 g/dl [facility] 05/15/2008 6:40 EST 05/15/2008 7:00 EST Jose Alejandro Castro MD CHEMISTRY & BLOOD GAS ORDERABLE S Final Result Performing Organization Address [facility] Co de Phone Number [facility] [address] [place] [address] * (ABNORMAL) GLUCOSE, SERUM (05/15/2008 6:40 EST) Glucose, Serum 65(L) 70 - 100 mg/dl [facility] 05/15/2008 6:40 EST 05/15/2008 7:00 EST Jose Alejandro Castro MD CHEMISTRY & BLOOD GAS ORDERABLE S Final Result Performing Organization Address [facility] de Phone Number [facility] [address] [place] [address] * (ABNORMAL) PHOSPHORUS (05/15/2008 6:40 EST) Phosphorus 2.4(L) 2.7 - 4.7 mg/dl [facility] 05/15/2008 6:40 EST 05/15/2008 7:00 EST Jose Alejandro Castro MD CHEMISTRY & BLOOD GAS ORDERABLE S Final Result Performing Organization Address [facility] Co de Phone Number [facility] [address] [place] [address] * (ABNORMAL) MAGNESIUM (05/15/2008 6:40 EST) Magnesium 1.5(L) 1.7 - 2.8 mg/dl [facility] 05/15/2008 6:40 EST 05/15/2008 7:00 EST Jose Alejandro Castro MD CHEMISTRY & BLOOD GAS ORDERABLE S Final Result Performing Organization Address [facility] de Phone Number [facility] [address] [place] [address] * (ABNORMAL) CALCIUM (05/15/2008 6:40 EST) Calcium 7.5(L) 8.5 - 10.5 mg/dl [facility] Calculated Calcium 9.2 8.5 - 10.5 mg/dl [facility] 05/15/2008 6:40 EST 05/15/2008 7:00 EST Jose Alejandro Castro MD CHEMISTRY & BLOOD GAS ORDERABLE S Final Result Performing Organization Address [facility] de Phone Number [facility] [address] [place] [address] * (ABNORMAL) ELECTROLYTES (05/15/2008 6:40 EST) Sodium 123(LL) 136 - 145 mEq/L [facility] Comment:Sample retested, res ult confirmed Potassium 4.1 3.5 - 5.0 mEq/L [facility] Chloride 89(L) 96 - 110 mEq/L [facility] CO2 27 24 - 32 mEq/L [facility] 05/15/2008 6:40 EST 05/15/2008 7:00 EST Jose Alejandro Castro MD CHEMISTRY & BLOOD GAS ORDERABLE S Final Result Performing Organization Address [facility] Co de Phone Number [facility] [address] [place] [address] * GLUCOSE, SERUM (05/15/2008 3:55 EST) Glucose, Serum 89 70 - 100 mg/dl [facility] 05/15/2008 3:55 EST 05/15/2008 4:03 EST Jose Alejandro Castro MD CHEMISTRY & BLOOD GAS ORDERABLE S Final Result Performing Organization Address [facility]/ZIP Co de Phone Number [facility] [address] [place] [address] * (ABNORMAL) CREATININE (05/15/2008 3:55 EST) Creatinine 0.50(L) 0.6 - 1.2 mg/dl [facility] GFR, Calculated Age <18 ml/min/1.7 3m2 [facility] 05/15/2008 3:55 EST 05/15/2008 4:03 EST Jose Alejandro Castro MD CHEMISTRY & BLOOD GAS ORDERABLE S Final Result Performing Organization Address [facility] Co de Phone Number [facility] [address] [place] [address] * (ABNORMAL) BUN (05/15/2008 3:55 EST) BUN 6(L) 8 - 21 mg/dl [facility] 05/15/2008 3:55 EST 05/15/2008 4:03 EST Jose Alejandro Castro MD CHEMISTRY & BLOOD GAS ORDERABLE S Final Result Performing Organization Address [facility] de Phone Number [facility] [address] [place] [address] * (ABNORMAL) ELECTROLYTES (05/15/2008 3:55 EST) Sodium 123(LL) 136 - 145 mEq/L [facility] Comment:Sample retested, res ult confirmed Potassium 3.2(L) 3.5 - 5.0 mEq/L [facility] Chloride 88(L) 96 - 110 mEq/L [facility] CO2 29 24 - 32 mEq/L [facility] 05/15/2008 3:55 EST 05/15/2008 4:03 EST Jose Alejandro Castro MD CHEMISTRY & BLOOD GAS ORDERABLE S Final Result Performing Organization Address [facility] Co de Phone Number [facility] [address] [place] [address] * OSMOLALITY, URINE (05/15/2008 2:10 EST) Pathologist [facility] Osmolality, Ur 372 MOS/KG [facility] 05/15/2008 2:10 EST 05/15/2008 2:15 EST Jose Alejandro Castro MD URINALYSIS ORDERABLES Final Res ult Performing Organization Address [facility] de Phone Number [facility] [address] [place] [address] * SODIUM, URINE RANDOM (05/15/2008 2:10 EST) Pathologist [facility] Sodium, Ur 167.0 mEq/L [facility] 05/15/2008 2:10 EST 05/15/2008 2:15 EST Jose Alejandro Castro MD URINALYSIS ORDERABLES Final Res ult Performing Organization Address [facility] de Phone Number [facility] [address] [place] [address] * GLUCOSE, SERUM (05/15/2008 0:45 EST) [facility] Glucose, Serum 97 70 - 100 mg/dl [facility] 05/15/2008 0:45 EST 05/15/2008 0:50 EST Jose Alejandro Castro MD CHEMISTRY & BLOOD GAS ORDERABLE S Final Result Performing Organization Address [facility] de Phone Number [facility] [address] [place] [address] * (ABNORMAL) PHOSPHORUS (05/15/2008 0:45 EST) Pathologist [facility] Phosphorus 2.5(L) 2.7 - 4.7 mg/dl [facility] 05/15/2008 0:45 EST 05/15/2008 0:50 EST Jose Alejandro Castro MD CHEMISTRY & BLOOD GAS ORDERABLE S Final Result Performing Organization Address [facility] de Phone Number [facility] [address] [place] [address] * (ABNORMAL) MAGNESIUM (05/15/2008 0:45 EST) Magnesium 1.5(L) 1.7 - 2.8 mg/dl [facility] 05/15/2008 0:45 EST 05/15/2008 0:50 EST Jose Alejandro Castro MD CHEMISTRY & BLOOD GAS ORDERABLE S Final Result Performing Organization Address [facility] de Phone Number [facility] [address] [place] [address] * (ABNORMAL) CALCIUM (05/15/2008 0:45 EST) Calcium 7.1(L) 8.5 - 10.5 mg/dl [facility] Calculated Calcium 8.9 8.5 - 10.5 mg/dl [facility] 05/15/2008 0:45 EST 05/15/2008 0:50 EST Jose Alejandro Castro MD CHEMISTRY & BLOOD GAS ORDERABLE S Final Result Performing Organization Address [facility] de Phone Number [facility] [address] [place] [address] * (ABNORMAL) ELECTROLYTES (05/15/2008 0:45 EST) Sodium 123(LL) 136 - 145 mEq/L [facility] Comment:Sample retested, res ult confirmed Potassium 3.5 3.5 - 5.0 mEq/L [facility] Chloride 90(L) 96 - 110 mEq/L [facility] CO2 26 24 - 32 mEq/L [facility] 05/15/2008 0:45 EST 05/15/2008 0:50 EST Jose Alejandro Castro MD CHEMISTRY & BLOOD GAS ORDERABLE S Final Result [facility] [address] [place] [address] * GLUCOSE, SERUM (05/14/2008 22:10 EST) Glucose, Serum 88 70 - 100 mg/dl [facility] 05/14/2008 22:1 0 EST 05/14/2008 22:15 EST Jose Alejandro Castro MD CHEMISTRY & BLOOD GAS ORDERABLE S Final Result Performing Organization Address [facility] de Phone Number [facility] [address] [place] [address] * (ABNORMAL) ELECTROLYTES (05/14/2008 22:10 EST) Sodium [...] ORDERABLE S Final Result Performing Organization Address [facility] de Phone Number [facility] [address] [place] [address] * GLUCOSE, SERUM (05/14/2008 18:50 EST) Glucose, Serum 99 70 - 100 mg/dl [facility] 05/14/2008 18:5 0 EST 05/14/2008 18:59 EST Jose Alejandro Castro MD CHEMISTRY & BLOOD GAS ORDERABLE S Final Result Performing Organization Address [facility] Co de Phone Number [facility] [address] [place] [address] * (ABNORMAL) ELECTROLYTES (05/14/2008 18:50 EST) Sodium [...] ORDERABLE S Final Result Performing Organization Address [facility] Co de Phone Number [facility] [address] [place] [address] * (ABNORMAL) PHOSPHORUS (05/14/2008 16:26 EST) Phosphorus 1.7(L) 2.7 - 4.7 mg/dl [facility] 05/14/2008 16:2 6 EST 05/14/2008 16:26 EST Jose Alejandro Castro MD CHEMISTRY & BLOOD GAS ORDERABLE S Final Result Performing Organization Address [facility] de Phone Number [facility] [address] [place] [address] * (ABNORMAL) CALCIUM (05/14/2008 16:26 EST) Calcium 6.8(L) 8.5 - 10.5 mg/dl [facility] Calculated Calcium 8.6 8.5 - 10.5 mg/dl [facility] 05/14/2008 16:2 6 EST 05/14/2008 16:26 EST Jose Alejandro Castro MD CHEMISTRY & BLOOD GAS ORDERABLE S Final Result Performing Organization Address [facility] de Phone Number [facility] [address] [place] [address] * (ABNORMAL) GLUCOSE, SERUM (05/14/2008 16:26 EST) Glucose, Serum 107(H) 70 - 100 mg/dl [facility] 05/14/2008 16:2 6 EST 05/14/2008 16:26 EST Jose Alejandro Castro MD CHEMISTRY & BLOOD GAS ORDERABLE S Final Result Performing Organization Address [facility] Co de Phone Number [facility] [address] [place] [address] * (ABNORMAL) ELECTROLYTES (05/14/2008 16:26 EST) Sodium [...] ORDERABLE S Final Result Performing Organization Address [facility] Co de Phone Number [facility] [address] [place] [address] * C. DIFFICILE TOXIN (05/14/2008 13:55 EST) Specimen Description Feces [facility] Result No C.difficil e toxin A or toxin B detected. [facility] Report Status Final 05/14/2008 [facility] 05/14/2008 13:5 5 EST 05/14/2008 16:05 EST Jose Alejandro Castro MD MICROBIOLOGY - GENERAL ORDERABL ES Final Result Performing Organization Address [facility] Co de Phone Number [facility] [address] [place] [address] * GLUCOSE, SERUM (05/14/2008 10:21 EST) Glucose, Serum 74 70 - 100 mg/dl [facility] Comment:Heparinized plasma. 05/14/2008 10:2 1 EST 05/14/2008 10:21 EST Jose Alejandro Castro MD CHEMISTRY & BLOOD GAS ORDERABLE S Final Result Performing Organization Address [facility] de Phone Number [facility] [address] [place] [address] * (ABNORMAL) ELECTROLYTES (05/14/2008 10:21 EST) Sodium 133(L) 136 - 145 mEq/L [facility] Comment:Heparinized plasma. Potassium 3.2(L) 3.5 - 5.0 mEq/L [facility] Comment:Heparinized plasma. Chloride 100 96 - 110 mEq/L [facility] Comment:Heparinized plasma. CO2 27 24 - 32 mEq/L [facility] Comment:Heparinized plasma. 05/14/2008 10:2 1 EST 05/14/2008 10:21 EST Jose Alejandro Castro MD CHEMISTRY & BLOOD GAS ORDERABLE S Final Result Performing Organization Address [facility] de Phone Number [facility] [address] [place] [address] * (ABNORMAL) CALCIUM, IONIZED (05/14/2008 5:38 EST) Calcium, Ionized 1.00(L) 1.12 - 1.32 mmol/L [facility] [employer] [place] [id number] Test performed by Chemistry [facility] 05/14/2008 5:38 EST 05/14/2008 5:49 EST Jose Alejandro Castro MD CHEMISTRY & BLOOD GAS ORDERABLE S Final Result Performing Organization Address [facility] de Phone Number [facility] [address] [place] [address] * CALCIUM IONIZED (05/14/2008 5:27 EST) Ionized Calcium Note Sample sent to Lab. [facility] 05/14/2008 5:27 EST 05/14/2008 5:27 EST Jose Alejandro Castro MD CHEMISTRY & BLOOD GAS ORDERABLE S Final Result Performing Organization Address [facility] Co de Phone Number [facility] [address] [place] [address] * (ABNORMAL) PHOSPHORUS (05/14/2008 4:07 EST) Phosphorus 2.0(L) 2.7 - 4.7 mg/dl [facility] 05/14/2008 4:07 EST 05/14/2008 4:07 EST Jose Alejandro Castro MD CHEMISTRY & BLOOD GAS ORDERABLE S Final Result Performing Organization Address [facility] de Phone Number [facility] [address] [place] [address] * (ABNORMAL) MAGNESIUM (05/14/2008 4:07 EST) Magnesium 1.5(L) 1.7 - 2.8 mg/dl [facility] 05/14/2008 4:07 EST 05/14/2008 4:07 EST Jose Alejandro Castro MD CHEMISTRY & BLOOD GAS ORDERABLE S Final Result Performing Organization Address [facility] de Phone Number [facility] [address] [place] [address] * (ABNORMAL) CALCIUM (05/14/2008 4:07 EST) Calcium 6.6(L) 8.5 - 10.5 mg/dl [facility] Calculated Calcium 8.7 8.5 - 10.5 mg/dl [facility] 05/14/2008 4:07 EST 05/14/2008 4:07 EST us Jose Alejandro Castro MD CHEMISTRY & BLOOD GAS ORDERABLE S Final Result Performing Organization Address [facility] Co de Phone Number [facility] [address] [place] [address] * (ABNORMAL) ELECTROLYTES (05/14/2008 4:07 EST) Sodium [...] ORDERABLE S Final Result Performing Organization Address [facility] Co de Phone Number [facility] [address] [place] [address] * (ABNORMAL) CREATININE (05/14/2008 4:07 EST) Creatinine 0.50(L) 0.6 - 1.2 mg/dl [facility] GFR, Calculated Age <18 ml/min/1.7 3m2 [facility] 05/14/2008 4:07 EST 05/14/2008 4:07 EST Jose Alejandro Castro MD CHEMISTRY & BLOOD GAS ORDERABLE S Final Result Performing Organization Address [facility] de Phone Number [facility] [address] [place] [address] * (ABNORMAL) BUN (05/14/2008 4:07 EST) BUN 7(L) 8 - 21 mg/dl [facility] 05/14/2008 4:07 EST 05/14/2008 4:07 EST Jose Alejandro Castro MD CHEMISTRY & BLOOD GAS ORDERABLE S Final Result Performing Organization Address [facility] de Phone Number [facility] [address] [place] [address] * (ABNORMAL) HEMAGRAM (05/14/2008 4:07 EST) WBC 3.27(L) 4.6 - 11.2 K/cmm [facility] RBC 3.58(L) 4.50 - 5.30 M/cmm [facility] Hemoglobin 9.4(L) 13.0 - 16.0 gm/dl [facility] HCT 27.9(L) 37.0 - 49.0 % [facility] MCV 78 78 - 98 fl [facility] MCH 26.3 pg [facility] MCHC 33.8 gm/dl [facility] PLT 187 156 - 312 K/cmm [facility] RDW-CV 16.3 % [facility] 05/14/2008 4:07 EST 05/14/2008 4:07 EST Jose Alejandro Castro MD HEMATOLOGY & PF4 ORDERABLES Fin al Result [facility] [address] [place] [address] * GLUCOSE, GLUCOMETER (05/14/2008 4:04 EST) Glucose, Fingerstick 97 70 - 100 mg/dl [facility] [place] [id number] Test Performed by Nursing Services [facility] 05/14/2008 4:04 EST 05/14/2008 23:15 EST Result [facility] Jose Alejandro Castro MD CHEMISTRY & BLOOD GAS ORDERABLE S Final Result Performing Organization Address [facility] Co de Phone Number [facility] [address] [place] [address] * (ABNORMAL) ELECTROLYTES (05/13/2008 22:11 EST) Sodium [...] ORDERABLE S Final Result Performing Organization Address [facility]/ZIP Co de Phone Number [facility] [address] [place] [address] * GLUCOSE, GLUCOMETER (05/13/2008 22:07 EST) Glucose, Fingerstick 93 70 - 100 mg/dl [facility] Fe[place] [id number] Test Performed by Nursing Services [facility] 05/13/2008 22:0 7 EST 05/15/2008 8:34 EST Jose Alejandro Castro MD CHEMISTRY & BLOOD GAS ORDERABLE S Final Result Performing Organization Address [facility] de Phone Number [facility] [address] [place] [address] * XRAY FEEDING TUBE PLACEMENT (05/13/2008 21:33 [...] 70 - 100 mg/dl [facility] [place]r ID [id number] Test Performed by Nursing Services [facility] 05/13/2008 16:5 3 EST 05/15/2008 8:34 EST us Jose Alejandro Castro MD CHEMISTRY & BLOOD GAS ORDERABLE S Final Result Performing Organization Address [facility] Phone Number [facility] [address] [place] [address] * (ABNORMAL) ELECTROLYTES (05/13/2008 16:50 EST) Sodium [...] ORDERABLE S Final Result Performing Organization Address [facility] Phone Number [facility] [address] [place] [address] * SODIUM, URINE RANDOM (05/13/2008 13:00 EST) Sodium, Ur 130.0 mEq/L [facility] 05/13/2008 13:0 0 EST 05/13/2008 13:01 EST us Jose Alejandro Castro MD URINALYSIS ORDERABLES Final Res ult Performing Organization Address [facility] Phone Number [facility] [address] [place] [address] * MR HEAD W/WO CONTRAST (05/13/2008 11:47 [...] 14 days old. No other new findings us Jose Alejandro Castro MD IMG MRI ORDERABLES Final Result * (ABNORMAL) GLUCOSE, SERUM (05/13/2008 10:00 EST) Glucose, Serum 151(H) 70 - 100 mg/dl [facility] Comment:Sample retested, res ult confirmed 05/13/2008 10:0 0 EST 05/13/2008 10:23 EST us Jose Alejandro Castro MD CHEMISTRY & BLOOD GAS ORDERABLE S Final Result [facility] [address] [place] [address] * (ABNORMAL) ALBUMIN (05/13/2008 10:00 EST) Albumin 2.2(L) 3.0 - 5.5 g/dl [facility] Comment:Sample retested, res ult confirmed 05/13/2008 10:0 0 EST 05/13/2008 10:23 EST us Jose Alejandro Castro MD CHEMISTRY & BLOOD GAS ORDERABLE S Final Result Performing Organization Address [facility] de Phone Number [facility] [address] [place] [address] * (ABNORMAL) ELECTROLYTES (05/13/2008 10:00 EST) Sodium 134(L) 136 - 145 mEq/L [facility] Comment:Sample retested, res ult confirmed Potassium 2.5(LL) 3.5 - 5.0 mEq/L [facility] [...] Final Result Performing Organization Address [facility] de Phone Number [facility] [address] [place] [address] * (ABNORMAL) BNP (05/13/2008 10:00 EST) BNP 653(H) <100 pg/ml [facility] 05/13/2008 10:0 0 EST 05/13/2008 10:23 EST Jose Alejandro Castro MD CHEMISTRY & BLOOD GAS ORDERABLE S Final Result Performing Organization Address [facility] de Phone Number [facility] [address] [place] [address] * (ABNORMAL) CALCIUM, IONIZED (05/13/2008 4:18 EST) Calcium, Ionized 1.09(L) 1.12 - 1.32 mmol/L [facility] [employer] [place] [id number] Test performed by Chemistry [facility] 05/13/2008 4:18 EST 05/13/2008 4:22 EST Jose Alejandro Castro MD CHEMISTRY & BLOOD GAS ORDERABLE S Final Result [facility] [address] [place] [address] * PORTABLE ABDOMEN 1 VIEW (05/13/2008 4:15 [...] prior exam. Salud Nichole MD IMG DIAGNOSTIC IMAGING ORDERA BLES Final Result * (ABNORMAL) GLUCOSE, SERUM (05/13/2008 4:13 EST) Pathologist [facility] Glucose, Serum 126(H) 70 - 100 mg/dl [facility] 05/13/2008 4:13 EST 05/13/2008 4:13 EST Jose Alejandro Castro MD CHEMISTRY & BLOOD GAS ORDERABLE S Final Result [facility] [address] [place] [address] * PHOSPHORUS (05/13/2008 4:13 EST) Pathologist [facility] Phosphorus 2.8 2.7 - 4.7 mg/dl [facility] 05/13/2008 4:13 EST 05/13/2008 4:13 EST us Jose Alejandro Castro MD CHEMISTRY & BLOOD GAS ORDERABLE S Final Result [facility] [address] [place] [address] * (ABNORMAL) MAGNESIUM (05/13/2008 4:13 EST) Magnesium 1.5(L) 1.7 - 2.8 mg/dl [facility] 05/13/2008 4:13 EST 05/13/2008 4:13 EST Jose Alejandro Castro MD CHEMISTRY & BLOOD GAS ORDERABLE S Final Result Performing Organization Address [facility] Co de Phone Number [facility] [address] [place] [address] * CREATININE (05/13/2008 4:13 EST) Creatinine 0.70 0.6 - 1.2 mg/dl [facility] GFR, Calculated Age <18 ml/min/1.7 3m2 [facility] 05/13/2008 4:13 EST 05/13/2008 4:13 EST Jose Alejandro Castro MD CHEMISTRY & BLOOD GAS ORDERABLE S Final Result Performing Organization Address [facility] Co de Phone Number [facility] [address] [place] [address] * BUN (05/13/2008 4:13 EST) BUN 12 8 - 21 mg/dl [facility] 05/13/2008 4:13 EST 05/13/2008 4:13 EST us Jose Alejandro Castro MD CHEMISTRY & BLOOD GAS ORDERABLE S Final Result Performing Organization Address [facility]/ZIP Co de Phone Number [facility] [address] [place] [address] * (ABNORMAL) ELECTROLYTES (05/13/2008 4:13 EST) Sodium 144 136 - 145 mEq/L [facility] Potassium 3.0(L) 3.5 - 5.0 mEq/L [facility] Chloride 108 96 - 110 mEq/L [facility] CO2 29 24 - 32 mEq/L [facility] 05/13/2008 4:13 EST 05/13/2008 4:13 EST Jose Alejandro Castro MD CHEMISTRY & BLOOD GAS ORDERABLE S Final Result Performing Organization Address [facility]/ZIP Co de Phone Number [facility] [address] [place] [address] * (ABNORMAL) HEMAGRAM AND DIFFERENTIAL (05/13/2008 4:13 EST) WBC 3.60(L) 4.6 - 11.2 K/cmm [facility] RBC 3.41(L) 4.50 - 5.30 M/cmm [facility] Hemoglobin 8.9(L) 13.0 - 16.0 gm/dl [facility] HCT 26.6(L) 37.0 - 49.0 % [facility] MCV 78 78 - 98 fl [facility] MCH 26.2 pg [facility] MCHC 33.6 gm/dl [facility] PLT 163 156 - 312 [...] of Diff: Automated [facility] 05/13/2008 4:13 EST 05/13/2008 4:13 EST Jose Alejandro Castro MD PACKAGES & DNA PROBE ORDERABLES Final Result [facility] [address] [place] [address] * CALCIUM IONIZED (05/13/2008 4:13 EST) Ionized Calcium Note Sample sent to Lab. [facility] 05/13/2008 4:13 EST 05/13/2008 4:13 EST Jose Alejandro Castro MD CHEMISTRY & BLOOD GAS ORDERABLE S Final Result Performing Organization Address [facility] Co de Phone Number [facility] [address] [place] [address] * (ABNORMAL) GLUCOSE, GLUCOMETER (05/13/2008 4:08 EST) Glucose, Fingerstick 141(H) 70 - 100 mg/dl [facility] [place]r [place] [id number] Test Performed by Nursing Services [facility] 05/13/2008 4:08 EST 05/15/2008 8:33 EST Jose Alejandro Castro MD CHEMISTRY & BLOOD GAS ORDERABLE S Final Result Performing Organization Address [facility] de Phone Number [facility] [address] [place] [address] * UA WITH MICROSCOPIC (05/13/2008 2:03 EST) Color, UA Straw [facility] Clarity, UA Clear [facility] Glucose, UA Norm NORM [facility] Bilirubin, UA Neg NEG [facility] Ketones, UA Neg NEG [facility] Specific Tarrs, Urine 1.015 1.005 - 1.02 [facility] Blood, UA Neg NEG [facility] pH, UA 7.5 5.0 - 9.0 [facility] Protein, UA Neg NEG [facility] Urobilinogen, UA Norm NORM mg/dL [...] /HPF [facility] Hyaline Casts, UA None seen /LPF [facility] Comment Microscopic results are unreliable on urines unrefrig >2hrs or refrig >8hrs. [facility] Comment Small sample, less than 12 ml received. [facility] 05/13/2008 2:03 EST 05/13/2008 2:03 EST Jose Alejandro Castro MD URINALYSIS ORDERABLES Final Res ult Performing Organization Address [facility] de Phone Number [facility] [address] [place] [address] * (ABNORMAL) ELECTROLYTES (05/12/2008 21:57 EST) Sodium [...] ORDERABLE S Final Result Performing Organization Address [facility] de Phone Number [facility] [address] [place] [address] * (ABNORMAL) GLUCOSE, GLUCOMETER (05/12/2008 21:49 EST) Glucose, Fingerstick 126(H) 70 - 100 mg/dl [facility] [place] [id number] Test Performed by Nursing Services [facility] 05/12/2008 21:4 9 EST 05/12/2008 23:19 EST us Jose Alejandro Castro MD CHEMISTRY & BLOOD GAS ORDERABLE S Final Result Performing Organization Address [facility] de Phone Number [facility] [address] [place] [address] * (ABNORMAL) GLUCOSE, GLUCOMETER (05/12/2008 16:06 EST) Glucose, Fingerstick 119(H) 70 - 100 mg/dl [facility] [place] [id number] Test Performed by Nursing Services [facility] 05/12/2008 16:0 6 EST 05/12/2008 23:19 EST Jose Alejandro Castro MD CHEMISTRY & BLOOD GAS ORDERABLE S Final Result Performing Organization Address [facility] de Phone Number [facility] [address] [place] [address] * (ABNORMAL) ELECTROLYTES (05/12/2008 16:05 EST) Sodium 146(H) 136 - 145 mEq/L [facility] Potassium 3.2(L) 3.5 - 5.0 mEq/L [facility] Chloride 111(H) 96 - 110 mEq/L [facility] CO2 29 24 - 32 mEq/L [facility] 05/12/2008 16:0 5 EST 05/12/2008 16:25 EST us Jose Alejandro Castro MD CHEMISTRY & BLOOD GAS ORDERABLE S Final Result Performing Organization Address [facility] de Phone Number [facility] [address] [place] [address] * (ABNORMAL) GLUCOSE, GLUCOMETER (05/12/2008 9:21 EST) Glucose, Fingerstick 133(H) 70 - 100 mg/dl [facility] [place] [id number] Test Performed by Nursing Services [facility] 05/12/2008 9:21 EST 05/12/2008 23:18 EST Jose Alejandro Castro MD CHEMISTRY & BLOOD GAS ORDERABLE S Final Result Performing Organization Address [facility] de Phone Number [facility] [address] [place] [address] * (ABNORMAL) ELECTROLYTES (05/12/2008 9:20 EST) Sodium 147(H) 136 - 145 mEq/L [facility] Potassium 3.2(L) 3.5 - 5.0 mEq/L [facility] Chloride 113(H) 96 - 110 mEq/L [facility] CO2 28 24 - 32 mEq/L [facility] 05/12/2008 9:20 EST 05/12/2008 9:30 EST Jose Alejandro Castro MD CHEMISTRY & BLOOD GAS ORDERABLE S Final Result Performing Organization Address [facility] [place] [place] de Phone Number [facility] [address] [place] [address] * CREATININE (05/12/2008 4:10 EST) Creatinine 0.70 0.6 - 1.2 mg/dl [facility] GFR, Calculated Age <18 ml/min/1.7 3m2 [facility] 05/12/2008 4:10 EST 05/12/2008 5:17 EST Jose Alejandro Castro MD CHEMISTRY & BLOOD GAS ORDERABLE S Final Result Performing Organization Address [facility] [place] de Phone Number [facility] [address] [place] [address] * BUN (05/12/2008 4:10 EST) BUN 14 8 - 21 mg/dl [facility] 05/12/2008 4:10 EST 05/12/2008 5:17 EST us Jose Alejandro Castro MD CHEMISTRY & BLOOD GAS ORDERABLE S Final Result Performing Organization Address [facility] Co de Phone Number [facility] [address] [place] [address] * (ABNORMAL) ELECTROLYTES (05/12/2008 4:10 EST) Sodium 147(H) 136 - 145 mEq/L [facility] Potassium 3.6 3.5 - 5.0 mEq/L [facility] Chloride 113(H) 96 - 110 mEq/L [facility] CO2 28 24 - 32 mEq/L [facility] 05/12/2008 4:10 EST 05/12/2008 5:17 EST Jose Alejandro Castro MD CHEMISTRY & BLOOD GAS ORDERABLE S Final Result [facility] [address] [place] [address] * (ABNORMAL) HEMAGRAM AND DIFFERENTIAL (05/12/2008 4:10 [...] % [facility] Neutrophils 82.6 % [facility] Lymphocytes 13.1 % [facility] Type of Diff: Automated [facility] 05/12/2008 4:10 EST 05/12/2008 5:17 EST Jose Alejandro Castro MD PACKAGES & DNA PROBE ORDERABLES Final Result Performing Organization Address [facility] de Phone Number [facility] [address] [place] [address] * GLUCOSE, GLUCOMETER (05/11/2008 20:32 EST) Glucose, Fingerstick 87 70 - 100 mg/dl [facility] Featherer [place] [id number] Test Performed by Nursing Services [facility] 05/11/2008 20:3 2 EST 05/11/2008 23:32 EST Jose Alejandro Castro MD CHEMISTRY & BLOOD GAS ORDERABLE S Final Result Performing Organization Address [facility] Phone Number [facility] [address] [place] [address] * (ABNORMAL) ELECTROLYTES (05/11/2008 20:30 EST) Sodium 145 136 - 145 mEq/L [facility] Potassium 3.5 3.5 - 5.0 mEq/L [facility] Chloride 111(H) 96 - 110 mEq/L [facility] CO2 26 24 - 32 mEq/L [facility] 05/11/2008 20:3 0 EST 05/11/2008 20:46 EST Jose Alejandro Castro MD CHEMISTRY & BLOOD GAS ORDERABLE S Final Result Performing Organization Address [facility] Phone Number [facility] [address] [place] [address] * MRSA MOLECULAR DETECTION (05/11/2008 18:42 EST) Specimen Description Nares [facility] Result NEGATIVE for Methicillin Resistant Staphylococcus aureus DNA by PCR. [facility] Report Status Final 05/12/2008 [facility] 05/11/2008 18:4 2 EST 05/11/2008 18:42 EST Jose Alejandro Castro MD MICROBIOLOGY - GENERAL ORDERABL ES Final Result Performing Organization Address [facility] [place] de Phone Number [facility] [address] [place] [address] * (ABNORMAL) GLUCOSE, SERUM (05/11/2008 15:17 EST) Glucose, Serum 174(H) 70 - 100 mg/dl [facility] 05/11/2008 15:1 7 EST 05/11/2008 15:17 EST Jose Alejandro Castro MD CHEMISTRY & BLOOD GAS ORDERABLE S Final Result Performing Organization Address [facility] [place] de Phone Number [facility] [address] [place] [address] * ELECTROLYTES (05/11/2008 15:17 EST) Pathologist [facility] Sodium 139 136 - 145 mEq/L [facility] Potassium 4.1 3.5 - 5.0 mEq/L [facility] Chloride 107 96 - 110 mEq/L [facility] CO2 26 24 - 32 mEq/L [facility] 05/11/2008 15:1 7 EST 05/11/2008 15:17 EST Jose Alejandro Castro MD CHEMISTRY & BLOOD GAS ORDERABLE S Final Result Performing Organization Address [facility] Phone Number [facility] [address] [place] [address] * XRAY FEEDING TUBE PLACEMENT (05/11/2008 11:27 [...] S Final Result [facility] [address] [place] [address] * ELECTROLYTES (05/11/2008 8:18 EST) Sodium 140 136 - 145 mEq/L [facility] Comment:Heparinized plasma. Potassium 4.0 3.5 - 5.0 mEq/L [facility] Comment:Heparinized plasma. Chloride 109 96 - 110 mEq/L [facility] Comment:Heparinized plasma. CO2 27 24 - 32 mEq/L [facility] Comment:Heparinized plasma. 05/11/2008 8:18 EST 05/11/2008 8:18 EST us Jose Alejandro Castro MD CHEMISTRY & BLOOD GAS ORDERABLE S Final Result Performing Organization Address [facility]/ZIP Co de Phone Number [facility] [address] [place] [address] * CALCIUM, IONIZED (05/11/2008 4:07 EST) Calcium, Ionized 1.19 1.12 - 1.32 mmol/L [facility] [employer] [place] [id number] Test performed by Chemistry [facility] 05/11/2008 4:07 EST 05/11/2008 4:14 EST Jose Alejandro Castro MD CHEMISTRY & BLOOD GAS ORDERABLE S Final Result Performing Organization Address [facility] Co de Phone Number [facility] [address] [place] [address] * (ABNORMAL) GLUCOSE, SERUM (05/11/2008 3:55 EST) Glucose, Serum 126(H) 70 - 100 mg/dl [facility] 05/11/2008 3:55 EST 05/11/2008 4:01 EST Jose Alejandro Castro MD CHEMISTRY & BLOOD GAS ORDERABLE S Final Result Performing Organization Address [facility] Co de Phone Number [facility] [address] [place] [address] * PHOSPHORUS (05/11/2008 3:55 EST) Phosphorus 2.9 2.7 - 4.7 mg/dl [facility] 05/11/2008 3:55 EST 05/11/2008 4:01 EST us Jose Alejandro Castro MD CHEMISTRY & BLOOD GAS ORDERABLE S Final Result Performing Organization Address [facility] Co de Phone Number [facility] [address] [place] [address] * MAGNESIUM (05/11/2008 3:55 EST) Magnesium 1.7 1.7 - 2.8 mg/dl [facility] 05/11/2008 3:55 EST 05/11/2008 4:01 EST Jose Alejandro Castro MD CHEMISTRY & BLOOD GAS ORDERABLE S Final Result Performing Organization Address City/[facility]/ZIP Co de Phone Number [facility] [address] [place] [address] * CREATININE (05/11/2008 3:55 EST) Creatinine 0.60 0.6 - 1.2 mg/dl [facility] GFR, Calculated Age <18 ml/min/1.7 3m2 [facility] 05/11/2008 3:55 EST 05/11/2008 4:01 EST Jose Alejandro Castro MD CHEMISTRY & BLOOD GAS ORDERABLE S Final Result Performing Organization Address [facility] Co de Phone Number [facility] [address] [place] [address] * BUN (05/11/2008 3:55 EST) BUN 17 8 - 21 mg/dl [facility] 05/11/2008 3:55 EST 05/11/2008 4:01 EST Jose Alejandro Castro MD CHEMISTRY & BLOOD GAS ORDERABLE S Final Result Performing Organization Address [facility]/ZIP Co de Phone Number [facility] [address] [place] [address] * ELECTROLYTES (05/11/2008 3:55 EST) Sodium 139 136 - 145 mEq/L [facility] Potassium 4.0 3.5 - 5.0 mEq/L [facility] Chloride 107 96 - 110 mEq/L [facility] CO2 25 24 - 32 mEq/L [facility] 05/11/2008 3:55 EST 05/11/2008 4:01 EST us Jose Alejandro Castro MD CHEMISTRY & BLOOD GAS ORDERABLE S Final Result Performing Organization Address [facility]/ZIP Co de Phone Number [facility] [address] [place] [address] * (ABNORMAL) HEMAGRAM AND DIFFERENTIAL (05/11/2008 3:55 [...] LAB PLT 85(L) 156 - 312 K/cmm [facility] RDW-CV 17.3 % [facility] Neutrophils 89.0 % [facility] % Bands 1.0 % [facility] Lymphocytes 6.0 % [facility] Monocytes 4.0 % [facility] ABS Neutrophils 14.10 K/cmm [facility] ABS Bands 0.16 K/cmm [facility] ABS Lymphs 0.95 K/cmm [facility] ABS Monocytes 0.63 K/cmm [facility] RBC Morphology 1+ Anisocytosis 1+ Poikilocytosis 1+ Microcytes [facility] WBC Morphology 1+ Dohle bodies [facility] Type of Diff: Manual [facility] 05/11/2008 3:55 EST 05/11/2008 4:01 EST Jose Alejandro Castro MD PACKAGES & DNA PROBE ORDERABLES Final Result Performing Organization Address [facility]/ZIP Co de Phone Number [facility] [address] [place] [address] * CALCIUM IONIZED (05/11/2008 3:55 EST) Ionized Calcium Note Sample sent to Lab. [facility] 05/11/2008 3:55 EST 05/11/2008 4:01 EST Jose Alejandro Castro MD CHEMISTRY & BLOOD GAS ORDERABLE S Final Result Performing Organization Address [facility] [place] de Phone Number [facility] [address] [place] [address] * CALCIUM, IONIZED (05/11/2008 0:56 EST) Calcium, Ionized 1.21 1.12 - 1.32 mmol/L [facility] [employer] [place] [id number] Test performed by Chemistry [facility] 05/11/2008 0:56 EST 05/11/2008 0:59 EST Jose Alejandro Castro MD CHEMISTRY & BLOOD GAS ORDERABLE S Final Result Performing Organization Address [facility] Phone Number [facility] [address] [place] [address] * (ABNORMAL) GLUCOSE, SERUM (05/11/2008 0:20 EST) Glucose, Serum 131(H) 70 - 100 mg/dl [facility] 05/11/2008 0:20 EST 05/11/2008 0:36 EST Jose Alejandro Castro MD CHEMISTRY & BLOOD GAS ORDERABLE S Final Result Performing Organization Address [facility] [place] de Phone Number [facility] [address] [place] [address] * PHOSPHORUS (05/11/2008 0:20 EST) Phosphorus 2.9 2.7 - 4.7 mg/dl [facility] 05/11/2008 0:20 EST 05/11/2008 0:36 EST us Jose Alejandro Castro MD CHEMISTRY & BLOOD GAS ORDERABLE S Final Result Performing Organization Address [facility] [place] de Phone Number [facility] [address] [place] [address] * MAGNESIUM (05/11/2008 0:20 EST) Magnesium 1.7 1.7 - 2.8 mg/dl [facility] 05/11/2008 0:20 EST 05/11/2008 0:36 EST Jose Alejandro Castro MD CHEMISTRY & BLOOD GAS ORDERABLE S Final Result Performing Organization Address [facility] de Phone Number [facility] [address] [place] [address] * ELECTROLYTES (05/11/2008 0:20 EST) Sodium 139 136 - 145 mEq/L [facility] Potassium 4.2 3.5 - 5.0 mEq/L [facility] Chloride 105 96 - 110 mEq/L [facility] CO2 28 24 - 32 mEq/L [facility] 05/11/2008 0:20 EST 05/11/2008 0:36 EST Jose Alejandro Castro MD CHEMISTRY & BLOOD GAS ORDERABLE S Final Result Performing Organization Address [facility] Phone Number [facility] [address] [place] [address] * CALCIUM IONIZED (05/11/2008 0:20 EST) Ionized Calcium Note Sample sent to Lab. [facility] 05/11/2008 0:20 EST 05/11/2008 0:36 EST Jose Alejandro Castro MD CHEMISTRY & BLOOD GAS ORDERABLE S Final Result Performing Organization Address [facility] de Phone Number [facility] [address] [place] [address] * CALCIUM, IONIZED (05/10/2008 20:18 EST) Calcium, Ionized 1.19 1.12 - 1.32 mmol/L [facility] [employer] [place] [id number] Test performed by Chemistry [facility] 05/10/2008 20:1 8 EST 05/10/2008 20:20 EST us Jose Alejandro Castro MD CHEMISTRY & BLOOD GAS ORDERABLE S Final Result [facility] [address] [place] [address] * (ABNORMAL) GLUCOSE, SERUM (05/10/2008 19:55 EST) Glucose, Serum 126(H) 70 - 100 mg/dl [facility] 05/10/2008 19:5 5 EST 05/10/2008 20:02 EST us Jose Alejandro Castro MD CHEMISTRY & BLOOD GAS ORDERABLE S Final Result Performing Organization Address [facility] Co de Phone Number [facility] [address] [place] [address] * PHOSPHORUS (05/10/2008 19:55 EST) Phosphorus 2.7 2.7 - 4.7 mg/dl [facility] 05/10/2008 19:5 5 EST 05/10/2008 20:02 EST us Jose Alejandro Castro MD CHEMISTRY & BLOOD GAS ORDERABLE S Final Result Performing Organization Address [facility] Co de Phone Number [facility] [address] [place] [address] * MAGNESIUM (05/10/2008 19:55 EST) Magnesium 1.7 1.7 - 2.8 mg/dl [facility] 05/10/2008 19:5 5 EST 05/10/2008 20:02 EST us Jose Alejandro Castro MD CHEMISTRY & BLOOD GAS ORDERABLE S Final Result Performing Organization Address [facility]/ZIP Co de Phone Number [facility] [address] [place] [address] * ELECTROLYTES (05/10/2008 19:55 EST) Sodium 136 [...] S Final Result [facility] [address] [place] [address] * (ABNORMAL) HEMAGRAM AND DIFFERENTIAL (05/10/2008 19:55 EST) WBC 19.67(H) 4.6 - 11.2 K/cmm [facility] RBC 3.48(L) 4.50 - 5.30 M/cmm [facility] Hemoglobin 9.2(L) 13.0 - 16.0 gm/dl [facility] HCT 27.1(L) 37.0 - 49.0 % [facility] MCV 78 78 - 98 fl [facility] MCH 26.3 pg [facility] MCHC 33.9 gm/dl [facility] PLT 84(L) 156 - 312 K/cmm [facility] RDW-CV 17.1 % [facility] Neutrophils 92.0 % [facility] % Bands 2.0 % [facility] Lymphocytes 4.0 % [facility] Monocytes 2.0 % [facility] ABS Neutrophils 18.10 K/cmm [facility] ABS Bands 0.39 K/cmm [facility] ABS Lymphs 0.79 K/cmm [facility] ABS Monocytes 0.39 K/cmm [facility] RBC Morphology 1+ Anisocytosis 1+ Microcytes [facility] Type of Diff: Manual [facility] 05/10/2008 19:5 5 EST 05/10/2008 20:02 EST Jose Alejandro Castro MD PACKAGES & DNA PROBE ORDERABLES Final Result [facility] [address] [place] [address] * CALCIUM IONIZED (05/10/2008 19:55 EST) Ionized Calcium Note Sample sent to Lab. [facility] 05/10/2008 19:5 5 EST 05/10/2008 20:02 EST Jose Aeljandro Castro MD CHEMISTRY & BLOOD GAS ORDERABLE S Final Result Performing Organization Address [facility]/ZIP Co de Phone Number [facility] [address] [place] [address] * CALCIUM, IONIZED (05/10/2008 16:34 EST) Calcium, Ionized 1.19 1.12 - 1.32 mmol/L [facility] [employer] [place] [id number] Test performed by Chemistry [facility] 05/10/2008 16:3 4 EST 05/10/2008 16:37 EST Jose Alejandro Castro MD CHEMISTRY & BLOOD GAS ORDERABLE S Final Result Performing Organization Address [facility] Co de Phone Number [facility] [address] [place] [address] * (ABNORMAL) GLUCOSE, SERUM (05/10/2008 16:23 EST) Glucose, Serum 109(H) 70 - 100 mg/dl [facility] 05/10/2008 16:2 3 EST 05/10/2008 16:23 EST Jose Alejandro Castro MD CHEMISTRY & BLOOD GAS ORDERABLE S Final Result Performing Organization Address [facility] Co de Phone Number [facility] [address] [place] [address] * PHOSPHORUS (05/10/2008 16:23 EST) Phosphorus 3.1 2.7 - 4.7 mg/dl [facility] 05/10/2008 16:2 3 EST 05/10/2008 16:23 EST us Jose Alejandro Castro MD CHEMISTRY & BLOOD GAS ORDERABLE S Final Result Performing Organization Address [facility] [place] de Phone Number [facility] [address] [place] [address] * MAGNESIUM (05/10/2008 16:23 EST) Magnesium 1.7 1.7 - 2.8 mg/dl [facility] 05/10/2008 16:2 3 EST 05/10/2008 16:23 EST us Jose Alejandro Castro MD CHEMISTRY & BLOOD GAS ORDERABLE S Final Result Performing Organization Address [facility] de Phone Number [facility] [address] [place] [address] * (ABNORMAL) ELECTROLYTES (05/10/2008 16:23 EST) Sodium 135(L) 136 - 145 mEq/L [facility] Potassium 4.6 3.5 - 5.0 mEq/L [facility] Chloride 104 96 - 110 mEq/L [facility] CO2 27 24 - 32 mEq/L [facility] 05/10/2008 16:2 3 EST 05/10/2008 16:23 EST us Jose Alejandro Castro MD CHEMISTRY & BLOOD GAS ORDERABLE S Final Result Performing Organization Address [facility] [place] de Phone Number [facility] [address] [place] [address] * CALCIUM IONIZED (05/10/2008 16:23 EST) Ionized Calcium Note Sample sent to Lab. [facility] 05/10/2008 16:2 3 EST 05/10/2008 16:23 EST us Jose Alejandro Castro MD CHEMISTRY & BLOOD GAS ORDERABLE S Final Result Performing Organization Address [facility] Co de Phone Number [facility] [address] [place] [address] * (ABNORMAL) GLUCOSE, GLUCOMETER (05/10/2008 16:16 EST) Glucose, Fingerstick 126(H) 70 - 100 mg/dl [facility] Featherer ID [id number] Test Performed by Nursing Services [facility] 05/10/2008 16:1 6 EST 05/10/2008 23:15 EST us Jose Alejandro Castro MD CHEMISTRY & BLOOD GAS ORDERABLE S Final Result Performing Organization Address [facility] [place] de Phone Number [facility] [address] [place] [address] * (ABNORMAL) BLOOD GAS, G3 ISTAT (05/10/2008 [...] [facility] Sample Type VENOUS [facility] farm [employer] buyer ID [id number] Test Performed by Respiratory [facility] 05/10/2008 13:0 8 EST 05/10/2008 13:17 EST us Jose Alejandro Castro MD CHEMISTRY & BLOOD GAS ORDERABLE S Final Result Performing Organization Address [facility] [place] de Phone Number [facility] [address] [place] [address] * SODIUM, URINE RANDOM (05/10/2008 12:27 EST) Sodium, Ur 65.0 mEq/L [facility] 05/10/2008 12:2 7 EST 05/10/2008 12:30 EST Jose Alejandro Castro MD URINALYSIS ORDERABLES Final Res ult Performing Organization Address [facility] Co de Phone Number [facility] [address] [place] [address] * CALCIUM, IONIZED (05/10/2008 12:27 EST) Calcium, Ionized 1.19 1.12 - 1.32 mmol/L [facility] [employer] [place] [id number] Test performed by Chemistry [facility] 05/10/2008 12:2 7 EST 05/10/2008 12:53 EST us Jose Alejandro Castro MD CHEMISTRY & BLOOD GAS ORDERABLE S Final Result Performing Organization Address [facility] de Phone Number [facility] [address] [place] [address] * (ABNORMAL) GLUCOSE, GLUCOMETER (05/10/2008 12:03 EST) Glucose, Fingerstick 120(H) 70 - 100 mg/dl [facility] Featherer [place] [id number] Test Performed by Nursing Services [facility] 05/10/2008 12:0 3 EST 05/10/2008 23:15 EST Jose Alejandro Castro MD CHEMISTRY & BLOOD GAS ORDERABLE S Final Result Performing Organization Address [facility] Co de Phone Number [facility] [address] [place] [address] * PHOSPHORUS (05/10/2008 11:28 EST) Phosphorus 2.9 2.7 - 4.7 mg/dl [facility] Comment:Heparinized plasma. 05/10/2008 11:2 8 EST 05/10/2008 12:14 EST Jose Alejandro Castro MD CHEMISTRY & BLOOD GAS ORDERABLE S Final Result Performing Organization Address [facility] Co de Phone Number [facility] [address] [place] [address] * MAGNESIUM (05/10/2008 11:28 EST) Pathologist [facility] Magnesium 1.8 1.7 - 2.8 mg/dl [facility] Comment:Heparinized plasma. 05/10/2008 11:2 8 EST 05/10/2008 12:14 EST Jose Alejandro Castro MD CHEMISTRY & BLOOD GAS ORDERABLE S Final Result Performing Organization Address [facility] Phone Number [facility] [address] [place] [address] * GLUCOSE, SERUM (05/10/2008 11:28 EST) Pathologist [facility] Glucose, Serum 97 70 - 100 mg/dl [facility] Comment:Heparinized plasma. 05/10/2008 11:2 8 EST 05/10/2008 12:14 EST Jose Alejandro Castro MD CHEMISTRY & BLOOD GAS ORDERABLE S Final Result Performing Organization Address [facility] Phone Number [facility] [address] [place] [address] * (ABNORMAL) ELECTROLYTES (05/10/2008 11:28 EST) [facility] Sodium 134(L) 136 - 145 mEq/L [facility] Comment:Heparinized plasma. Potassium 4.6 3.5 - 5.0 mEq/L [facility] Comment:Heparinized plasma. Chloride 104 96 - 110 mEq/L [facility] Comment:Heparinized plasma. CO2 25 24 - 32 mEq/L [facility] Comment:Heparinized plasma. 05/10/2008 11:2 8 EST 05/10/2008 12:14 EST us Jose Alejandro Castro MD CHEMISTRY & BLOOD GAS ORDERABLE S Final Result Performing Organization Address [facility] Phone Number [facility] [address] [place] [address] * CALCIUM IONIZED (05/10/2008 11:28 EST) [facility] Ionized Calcium Note Sample sent to Lab. [facility] 05/10/2008 11:2 8 EST 05/10/2008 12:14 EST us Jose Alejandro Castro MD CHEMISTRY & BLOOD GAS ORDERABLE S Final Result Performing Organization Address [facility] de Phone Number [facility] [address] [place] [address] * GLUCOSE, GLUCOMETER (05/10/2008 9:44 EST) Glucose, Fingerstick 95 70 - 100 mg/dl [facility] Fe[employer]r [place] [id number] Test Performed by Nursing Services [facility] 05/10/2008 9:44 EST 05/10/2008 23:15 EST us Jose Alejandro Castro MD CHEMISTRY & BLOOD GAS ORDERABLE S Final Result Performing Organization Address [facility] de Phone Number [facility] [address] [place] [address] * CALCIUM, IONIZED (05/10/2008 8:33 EST) Calcium, Ionized 1.20 1.12 - 1.32 mmol/L [facility] [employer] [place] [id number] Test performed by Chemistry [facility] 05/10/2008 8:33 EST 05/10/2008 8:36 EST us Jose Alejandro Castro MD CHEMISTRY & BLOOD GAS ORDERABLE S Final Result Performing Organization Address [facility] de Phone Number [facility] [address] [place] [address] * (ABNORMAL) BLOOD GAS, CG4 ISTAT (05/10/2008 8:29 EST) pH, i-STAT 7.40 7.35 - 7.45 [facility] pCO2, i-STAT 34(L) 35 - 45 mmHg [facility] pO2, i-STAT 79(L) 85 - 100 mmHg [facility] TCO2, i-STAT 23 mEq/L [facility] O2 Saturation 97 % [facility] Lactate, i-STAT 1.1 mmol/L [facility] Base Deficit 3 [facility] Temperature 34.8 C [facility] FIO2 25 [facility] Sample Type ARTERIAL [facility] farm contractor 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 ID [id number] Test Performed by Respiratory [facility] 05/10/2008 8:29 EST 05/10/2008 8:33 EST us Jose Alejandro Castro MD CHEMISTRY & BLOOD GAS ORDERABLE S Final Result Performing Organization Address [facility] Co de Phone Number [facility] [address] [place] [address] * TESTS ADDED BY PHONE (05/10/2008 8:28 EST) Tests to be added STAT MGPHOS [facility] Who Called [facility] FOR DR TONIE [facility] Location Code [id number] [facility] 05/10/2008 8:28 EST 05/10/2008 8:28 EST us Jose Alejandro Castro MD CHEMISTRY & BLOOD GAS ORDERABLE S Final Result Performing Organization Address [facility] de Phone Number [facility] [address] [place] [address] * (ABNORMAL) ELECTROLYTES (05/10/2008 8:28 EST) Sodium [...] ORDERABLE S Final Result Performing Organization Address [facility] de Phone Number [facility] [address] [place] [address] * CALCIUM IONIZED (05/10/2008 8:28 EST) Ionized Calcium Note Sample sent to Lab. [facility] 05/10/2008 8:28 EST 05/10/2008 8:28 EST us Jose Alejandro Castro MD CHEMISTRY & BLOOD GAS ORDERABLE S Final Result Performing Organization Address [facility] Hospital/[facility] Co de Phone Number [facility] [address] [place] [address] * PHOSPHORUS (05/10/2008 8:28 EST) Phosphorus 3.1 2.7 - 4.7 mg/dl [facility] 05/10/2008 8:28 EST 05/10/2008 8:28 EST us Jose Alejandro Castro MD CHEMISTRY & BLOOD GAS ORDERABLE S Final Result Performing Organization Address [facility] Phone Number [facility] [address] [place] [address] * MAGNESIUM (05/10/2008 8:28 EST) Magnesium 1.8 1.7 - 2.8 mg/dl [facility] 05/10/2008 8:28 EST 05/10/2008 8:28 EST us Jose Alejandro Castro MD CHEMISTRY & BLOOD GAS ORDERABLE S Final Result Performing Organization Address [facility] de Phone Number [facility] [address] [place] [address] * (ABNORMAL) GLUCOSE, GLUCOMETER (05/10/2008 8:27 EST) Glucose, Fingerstick 102(H) 70 - 100 mg/dl [facility] Featherer [place] [id number] Test Performed by Nursing Services [facility] 05/10/2008 8:27 EST 05/10/2008 23:15 EST us Jose Alejandro Castro MD CHEMISTRY & BLOOD GAS ORDERABLE S Final Result [facility] [address] [place] [address] * (ABNORMAL) BLOOD GAS, G3 ISTAT (05/10/2008 8:19 EST) pH, i-STAT 7.43 7.35 - 7.45 [facility] pCO2, i-STAT 37 35 - 45 mmHg [facility] pO2, i-STAT 36(L) 85 - 100 mmHg [facility] TCO2, i-STAT 26 mEq/L [facility] O2 Saturation 77 % FLEMARSHA [facility] Base Excess 0 [facility] Temperature 34.8 C [facility] FIO2 25 [facility] Sample Type VENOUS [facility] farm contractor buyer ID [id number] Test Performed by Respiratory [facility] 05/10/2008 8:19 EST 05/10/2008 8:33 EST us Jose Alejandro Castro MD CHEMISTRY & BLOOD GAS ORDERABLE S Final Result Performing Organization Address City/State/[facility] Co de Phone Number [facility] [address] [place] [address] * PORTABLE CHEST 1 VIEW (05/10/2008 7:24 [...] the duodenal bulb. Procedure Note Hamzah Torres, [facility] - 11/21/2008 acute resp failure cardex [...] bulb. Jose Alejandro Castro MD IMG DIAGNOSTIC IMAGING ORDERABL ES Final Result * GLUCOSE, GLUCOMETER (05/10/2008 7:02 EST) Glucose, Fingerstick 83 70 - 100 mg/dl [facility] Featherer [place] [id number] Test Performed by Nursing Services [facility] 05/10/2008 7:02 EST 05/10/2008 23:15 EST Jose Alejandro Castro MD CHEMISTRY & BLOOD GAS ORDERABLE S Final Result Performing Organization Address City/[facility] Co de Phone Number [facility] [address] [place] [address] * (ABNORMAL) GLUCOSE, GLUCOMETER (05/10/2008 6:11 EST) Glucose, Fingerstick 110(H) 70 - 100 mg/dl [facility] Featherer [place] [id number] Test Performed by Nursing Services [facility] 05/10/2008 6:11 EST 05/10/2008 23:15 EST Jose Alejandro Castro MD CHEMISTRY & BLOOD GAS ORDERABLE S Final Result Performing Organization Address City/[facility] Co de Phone Number [facility] [address] [place] [address] * CALCIUM, IONIZED (05/10/2008 5:24 EST) Calcium, Ionized 1.13 1.12 - 1.32 mmol/L [facility] [employer] [place] [id number] Test performed by Chemistry [facility] 05/10/2008 5:24 EST 05/10/2008 5:33 EST us Jose Alejandro Castro MD CHEMISTRY & BLOOD GAS ORDERABLE S Final Result [facility] [address] [place] [address] * (ABNORMAL) BLOOD GAS, G3 ISTAT (05/10/2008 5:04 EST) pH, i-STAT 7.38 7.35 - 7.45 [facility] pCO2, i-STAT 40 35 - 45 mmHg [facility] pO2, i-STAT 36(L) 85 - 100 mmHg [facility] TCO2, i-STAT 25 mEq/L [facility] O2 Saturation 71 % [facility] Base Deficit 2 [facility]NANCY [facility] Temperature 36.0 C [facility] FIO2 25 [facility] Sample Type VENOUS [facility] farm contractor buyer ID [id number] Test Performed by Respiratory [facility] 05/10/2008 5:04 EST 05/10/2008 5:38 EST us Jose Alejandro Castro MD CHEMISTRY & BLOOD GAS ORDERABLE S Final Result [facility] [address] [place] [address] * (ABNORMAL) GLUCOSE, GLUCOMETER (05/10/2008 5:02 EST) Glucose, Fingerstick 110(H) 70 - 100 mg/dl [facility] Fe[place]r [place] [id number] Test Performed by Nursing Services [facility] 05/10/2008 5:02 EST 05/10/2008 23:15 EST us Jose Alejandro Castro MD CHEMISTRY & BLOOD GAS ORDERABLE S Final Result [facility] [address] [place] [address] * TROPONIN I (05/10/2008 5:00 EST) Troponin I pre 2011 0.19 ng/ml [facility] Comment: Reference Range: Normal: ??Less than 0.05 Indeterminate: ??0.05-0.80 Positive: ??Greater than 0.80 05/10/2008 5:00 EST 05/10/2008 5:11 EST Jose Alejandro Castro MD CHEMISTRY & BLOOD GAS ORDERABLE S Final Result Performing Organization Address [facility] de Phone Number [facility] [address] [place] [address] * (ABNORMAL) CK MB WITH TOTAL CK (05/10/2008 5:00 EST) CK 3,919 U/L [facility] MB 38.9(H) 0 - 5.0 ng/ml [facility] CK-MB Index 1.0 0 - 2.5 [facility] 05/10/2008 5:00 EST 05/10/2008 5:11 EST Jose Alejandro Castro MD CHEMISTRY & BLOOD GAS ORDERABLE S Final Result Performing Organization Address [facility] de Phone Number [facility] [address] [place] [address] * (ABNORMAL) TOTAL PROTEIN (05/10/2008 5:00 EST) Total Protein 4.2(L) 6.3 - 8.6 g/dl [facility] 05/10/2008 5:00 EST 05/10/2008 5:11 EST Jose Alejandro Castro MD CHEMISTRY & BLOOD GAS ORDERABLE S Final Result Performing Organization Address [facility] de Phone Number [facility] [address] [place] [address] * GLUCOSE, SERUM (05/10/2008 5:00 EST) Glucose, Serum 97 70 - 100 mg/dl [facility] 05/10/2008 5:00 EST 05/10/2008 5:11 EST Jose Alejanrdo Castro MD CHEMISTRY & BLOOD GAS ORDERABLE S Final Result Performing Organization Address [facility] Co de Phone Number [facility] [address] [place] [address] * PHOSPHORUS (05/10/2008 5:00 EST) Phosphorus 3.3 2.7 - 4.7 mg/dl [facility] 05/10/2008 5:00 EST 05/10/2008 5:11 EST Jose Alejandro Castro MD CHEMISTRY & BLOOD GAS ORDERABLE S Final Result Performing Organization Address [facility] de Phone Number [facility] [address] [place] [address] * MAGNESIUM (05/10/2008 5:00 EST) Magnesium 1.8 1.7 - 2.8 mg/dl [facility] 05/10/2008 5:00 EST 05/10/2008 5:11 EST Jose Alejandro Castro MD CHEMISTRY & BLOOD GAS ORDERABLE S Final Result Performing Organization Address [facility] Phone Number [facility] [address] [place] [address] * GGT (05/10/2008 5:00 EST) GGT 23 10 - 35 U/L [facility] 05/10/2008 5:00 EST 05/10/2008 5:11 EST Jose Alejandro Castro MD CHEMISTRY & BLOOD GAS ORDERABLE S Final Result Performing Organization Address [facility] Co de Phone Number [facility] [address] [place] [address] * CREATININE (05/10/2008 5:00 EST) Creatinine 0.70 0.6 - 1.2 mg/dl [facility] GFR, Calculated Age <18 ml/min/1.7 3m2 [facility] 05/10/2008 5:00 EST 05/10/2008 5:11 EST Jose Alejandro Castro MD CHEMISTRY & BLOOD GAS ORDERABLE S Final Result Performing Organization Address [facility] Co de Phone Number [facility] [address] [place] [address] * BUN (05/10/2008 5:00 EST) BUN 18 8 - 21 mg/dl [facility] 05/10/2008 5:00 EST 05/10/2008 5:11 EST Jose Alejandro Castro MD CHEMISTRY & BLOOD GAS ORDERABLE S Final Result Performing Organization Address [facility] Phone Number [facility] [address] [place] [address] * (ABNORMAL) AST (05/10/2008 5:00 EST) AST 202(H) 15 - 46 U/L [facility] 05/10/2008 5:00 EST 05/10/2008 5:11 EST Jose Alejandro Castro MD CHEMISTRY & BLOOD GAS ORDERABLE S Final Result Performing Organization Address [facility] Phone Number [facility] [address] [place] [address] * (ABNORMAL) ALT (05/10/2008 5:00 EST) ALT 82(H) 0 - 45 U/L [facility] 05/10/2008 5:00 EST 05/10/2008 5:11 EST us Jose Alejandro Castro MD CHEMISTRY & BLOOD GAS ORDERABLE S Final Result Performing Organization Address [facility] Co de Phone Number [facility] [address] [place] [address] * ALKALINE PHOSPHATASE (05/10/2008 5:00 EST) Alkaline Phosphatase 112 65 - 260 U/L [facility] 05/10/2008 5:00 EST 05/10/2008 5:11 EST Jose Alejandro Castro MD CHEMISTRY & BLOOD GAS ORDERABLE S Final Result Performing Organization Address [facility] de Phone Number [facility] [address] [place] [address] * (ABNORMAL) ALBUMIN (05/10/2008 5:00 EST) Pathologist [facility] Albumin 2.1(L) 3.0 - 5.5 g/dl [facility] 05/10/2008 5:00 EST 05/10/2008 5:11 EST Jose Alejandro Castro MD CHEMISTRY & BLOOD GAS ORDERABLE S Final Result Performing Organization Address [facility] Phone Number [facility] [address] [place] [address] * (ABNORMAL) ELECTROLYTES (05/10/2008 5:00 EST) Pathologist [facility] Sodium 134(L) 136 - 145 mEq/L [facility] Potassium 4.7 3.5 - 5.0 mEq/L [facility] Chloride 106 96 - 110 mEq/L [facility] CO2 24 24 - 32 mEq/L [facility] 05/10/2008 5:00 EST 05/10/2008 5:11 EST Jose Alejandro Castro MD CHEMISTRY & BLOOD GAS ORDERABLE S Final Result Performing Organization Address [facility] de Phone Number [facility] [address] [place] [address] * (ABNORMAL) HEMAGRAM AND DIFFERENTIAL (05/10/2008 5:00 EST) Pathologist [facility] WBC 24.49(H) 4.6 - 11.2 K/cmm [facility] RBC 3.15(L) 4.50 - 5.30 M/cmm [facility] Hemoglobin 8.3(L) 13.0 - 16.0 gm/dl [facility] HCT 24.5(L) 37.0 - 49.0 % [facility] MCV 78 78 - 98 fl [facility] MCH 26.4 pg [facility] MCHC 34.0 gm/dl [facility] PLT 86(L) 156 - 312 K/cmm [facility] RDW-CV 17.4 % [facility] Neutrophils 86.0 % [facility] % Bands 7.0 % [facility] Lymphocytes 5.0 % [facility] Monocytes 2.0 % [facility] ABS Neutrophils 21.07 K/cmm [facility] ABS Bands 1.71 K/cmm [facility] ABS Lymphs 1.22 K/cmm [facility] ABS Monocytes 0.49 K/cmm [facility] RBC Morphology 1+ Anisocytosis 1+ Microcytes 1+ Poikilocytosis [facility] WBC Morphology 1+ Toxic granulation [facility] Type of Diff: Manual [facility] 05/10/2008 5:00 EST 05/10/2008 5:11 EST Jose Alejandro Castro MD PACKAGES & DNA PROBE ORDERABLES Final Result Performing Organization Address [facility] de Phone Number [facility] [address] [place] [address] * (ABNORMAL) PTT (05/10/2008 5:00 EST) PTT 38(H) 20 - 35 secs [facility] Comment:Therapeutic Heparin range: 60-100 seconds 05/10/2008 5:00 EST 05/10/2008 5:11 EST Jose Alejandro Castro MD HEMATOLOGY & PF4 ORDERABLES Fin al Result Performing Organization Address [facility] Co de Phone Number [facility] [address] [place] [address] * (ABNORMAL) PROTIME (05/10/2008 5:00 EST) Pro [...] ORDERABLES Fin al Result Performing Organization Address [facility] de Phone Number [facility] [address] [place] [address] * CALCIUM IONIZED (05/10/2008 5:00 EST) Ionized Calcium Note Sample sent to Lab. [facility] 05/10/2008 5:00 EST 05/10/2008 5:11 EST Jose Alejandro Castro MD CHEMISTRY & BLOOD GAS ORDERABLE S Final Result Performing Organization Address [facility] de Phone Number [facility] [address] [place] [address] * (ABNORMAL) BLOOD GAS, CG4 ISTAT (05/10/2008 [...] [facility] Sample Type ARTERIAL ANISHA GARCIA Tech ID [id number] Test Performed by Respiratory [facility] 05/10/2008 4:59 EST 05/10/2008 5:38 EST Jose Alejandro Castro MD CHEMISTRY & BLOOD GAS ORDERABLE S Final Result Performing Organization Address City/[facility]/ZIP Co de Phone Number [facility] [address] [place] [address] * GLUCOSE, GLUCOMETER (05/10/2008 4:03 EST) Glucose, Fingerstick 87 70 - 100 mg/dl [facility] [place] [facility] [place]r [place] [id number] Test Performed by Nursing Services [facility] 05/10/2008 4:03 EST 05/10/2008 23:15 EST Jose Alejandro Castro MD CHEMISTRY & BLOOD GAS ORDERABLE S Final Result Performing Organization Address [facility] Co de Phone Number [facility] [address] [place] [address] * (ABNORMAL) GLUCOSE, GLUCOMETER (05/10/2008 3:00 EST) Glucose, Fingerstick 68(L) 70 - 100 mg/dl [facility] Featherer ID [id number] Test Performed by Nursing Services [facility] 05/10/2008 3:00 EST 05/10/2008 23:15 EST Jose Alejandro Castro MD CHEMISTRY & BLOOD GAS ORDERABLE S Final Result Performing Organization Address [facility] Co de Phone Number [facility] [address] [place] [address] * (ABNORMAL) GLUCOSE, GLUCOMETER (05/10/2008 2:03 EST) Glucose, Fingerstick 116(H) 70 - 100 mg/dl [facility] Feat[employer]r ID [id number] Test Performed by Nursing Services [facility] 05/10/2008 2:03 EST 05/10/2008 23:15 EST Jose Alejandro Castro MD CHEMISTRY & BLOOD GAS ORDERABLE S Final Result Performing Organization Address City/[facility]/ZIP Co de Phone Number [facility] [address] [place] [address] * (ABNORMAL) BLOOD GAS, CG4 ISTAT (05/10/2008 [...] [facility] Sample Type ARTERIAL [facility] farm contractor buyer ID [id number] Test Performed by Respiratory [facility] 05/10/2008 1:22 EST 05/10/2008 1:26 EST Jose Alejandro Castro MD CHEMISTRY & BLOOD GAS ORDERABLE S Final Result [facility] [address] [place] [address] * (ABNORMAL) GLUCOSE, GLUCOMETER (05/10/2008 1:21 EST) Glucose, Fingerstick 130(H) 70 - 100 mg/dl [facility] Featherer ID [id number] Test Performed by Nursing Services [facility] 05/10/2008 1:21 EST 05/10/2008 23:15 EST Jose Alejandro Castro MD CHEMISTRY & BLOOD GAS ORDERABLE S Final Result [facility] [address] [place] [address] * CALCIUM, IONIZED (05/10/2008 1:20 EST) Calcium, Ionized 1.15 1.12 - 1.32 mmol/L [facility] farm [employer] [place] [id number] Test performed by Chemistry [facility] 05/10/2008 1:20 EST 05/10/2008 1:23 EST us Jose Alejandro Castro MD CHEMISTRY & BLOOD GAS ORDERABLE S Final Result [facility] [address] [place] [address] * (ABNORMAL) BLOOD GAS, G3 ISTAT (05/10/2008 1:17 EST) pH, i-STAT 7.37 7.35 - 7.45 [facility] pCO2, i-STAT 38 35 - 45 mmHg [facility] pO2, i-STAT 39(L) 85 - 100 mmHg [facility] TCO2, i-STAT 23 mEq/L [facility]SHAE [facility] O2 Saturation 74 % FLEMARSHA STEVENS [facility] Base Deficit 3 FLETCHE R [facility] Temperature 36.4 C [facility] FIO2 25 [facility] Sample Type VENOUS [facility] farm contractor buyer ID [id number] Test Performed by Respiratory [facility] 05/10/2008 1:17 EST 05/10/2008 1:26 EST us Jose Alejandro Castro MD CHEMISTRY & BLOOD GAS ORDERABLE S Final Result [facility] [address] [place] [address] * (ABNORMAL) BLOOD GAS, CG4 ISTAT (05/10/2008 1:12 EST) pH, i-STAT 7.38 7.35 - 7.45 [facility] pCO2, i-STAT 33(L) 35 - 45 mmHg [facility] pO2, i-STAT 105(H) 85 - 100 mmHg [facility] TCO2, i-STAT 20 mEq/L [facility]TCHE R [facility] O2 Saturation 98 % FLEMARSHA ER [facility] Lactate, i-STAT 0.6 mmol/L [facility] Base Deficit 5 FLETCHE R [facility] Temperature 36.4 C [facility] FIO2 25 [facility] Sample Type ARTERIAL [facility] farm contractor buyer ID [id number] Test Performed by Respiratory [facility] 05/10/2008 1:12 EST 05/10/2008 1:26 EST us Jose Alejandro Castro MD CHEMISTRY & BLOOD GAS ORDERABLE S Final Result Performing Organization Address [facility] Phone Number [facility] [address] [place] [address] * PHOSPHORUS (05/10/2008 1:10 EST) Phosphorus 3.1 2.7 - 4.7 mg/dl [facility] 05/10/2008 1:10 EST 05/10/2008 1:17 EST Jose Alejandro Castro MD CHEMISTRY & BLOOD GAS ORDERABLE S Final Result Performing Organization Address [facility] Phone Number [facility] [address] [place] [address] * MAGNESIUM (05/10/2008 1:10 EST) Magnesium 1.9 1.7 - 2.8 mg/dl [facility] 05/10/2008 1:10 EST 05/10/2008 1:17 EST us Jose Alejandro Castro MD CHEMISTRY & BLOOD GAS ORDERABLE S Final Result Performing Organization Address [facility] Phone Number [facility] [address] [place] [address] * (ABNORMAL) ELECTROLYTES (05/10/2008 1:10 EST) Sodium 134(L) 136 - 145 mEq/L [facility] Potassium 5.1(H) 3.5 - 5.0 mEq/L [facility] Chloride 105 96 - 110 mEq/L [facility] CO2 21(L) 24 - 32 mEq/L [facility] 05/10/2008 1:10 EST 05/10/2008 1:17 EST us Jose Alejandro Castro MD CHEMISTRY & BLOOD GAS ORDERABLE S Final Result [facility] [address] [place] [address] * CALCIUM IONIZED (05/10/2008 1:10 EST) Ionized Calcium Note Sample sent to Lab. [facility] 05/10/2008 1:10 EST 05/10/2008 1:17 EST Jose Alejandro Castro MD CHEMISTRY & BLOOD GAS ORDERABLE S Final Result Performing Organization Address City/[facility]/ZIP Co de Phone Number [facility] [address] [place] [address] * (ABNORMAL) GLUCOSE, GLUCOMETER (05/10/2008 0:20 EST) Glucose, Fingerstick 115(H) 70 - 100 mg/dl [facility] Featherer ID [id number] Test Performed by Nursing Services [facility] 05/10/2008 0:20 EST 05/10/2008 23:14 EST Jose Alejandro Castro MD CHEMISTRY & BLOOD GAS ORDERABLE S Final Result Performing Organization Address [facility] Co de Phone Number [facility] [address] [place] [address] * (ABNORMAL) GLUCOSE, GLUCOMETER (05/09/2008 23:03 EST) Glucose, Fingerstick 113(H) 70 - 100 mg/dl [facility] Featherer ID [id number] Test Performed by Nursing Services [facility] 05/09/2008 23:0 3 EST 05/09/2008 23:14 EST Jose Alejandro Castro MD CHEMISTRY & BLOOD GAS ORDERABLE S Final Result Performing Organization Address City/[facility] Co de Phone Number [facility] [address] [place] [address] * (ABNORMAL) GLUCOSE, GLUCOMETER (05/09/2008 22:11 EST) Glucose, Fingerstick 118(H) 70 - 100 mg/dl [facility] Featherer ID [id number] Test Performed by Nursing Services [facility] 05/09/2008 22:1 1 EST 05/09/2008 23:14 EST Jose Alejandro Castro MD CHEMISTRY & BLOOD GAS ORDERABLE S Final Result Performing Organization Address [facility] Phone Number [facility] [address] [place] [address] * (ABNORMAL) CALCIUM, IONIZED (05/09/2008 21:26 EST) Calcium, Ionized 1.08(L) 1.12 - 1.32 mmol/L [facility] farm [employer] [place] [id number] Test performed by Chemistry [facility] 05/09/2008 21:2 6 EST 05/09/2008 21:29 EST Jose Alejandro Castro MD CHEMISTRY & BLOOD GAS ORDERABLE S Final Result Performing Organization Address [facility] Phone Number [facility] [address] [place] [address] * GLUCOSE, GLUCOMETER (05/09/2008 21:25 EST) Glucose, Fingerstick 87 70 - 100 mg/dl [facility] Featherer ID [id number] Test Performed by Nursing Services [facility] 05/09/2008 21:2 5 EST 05/09/2008 23:14 EST Jose Alejandro Castro MD CHEMISTRY & BLOOD GAS ORDERABLE S Final Result Performing Organization Address [facility] de Phone Number [facility] [address] [place] [address] * (ABNORMAL) BLOOD GAS, G3 ISTAT (05/09/2008 [...] [facility] Sample Type VENOUS [facility] farm contractor buyer ID [id number] Test Performed by Respiratory [facility] 05/09/2008 21:1 5 EST 05/09/2008 21:25 EST Jose Alejandro Castro MD CHEMISTRY & BLOOD GAS ORDERABLE S Final Result Performing Organization Address [facility] de Phone Number [facility] [address] [place] [address] * PHOSPHORUS (05/09/2008 21:10 EST) Pathologist [facility] Phosphorus 2.9 2.7 - 4.7 mg/dl [facility] 05/09/2008 21:1 0 EST 05/09/2008 21:16 EST Jose Alejandro Castro MD CHEMISTRY & BLOOD GAS ORDERABLE S Final Result Performing Organization Address [facility] Phone Number [facility] [address] [place] [address] * MAGNESIUM (05/09/2008 21:10 EST) [facility] Magnesium 1.9 1.7 - 2.8 mg/dl [facility] 05/09/2008 21:1 0 EST 05/09/2008 21:16 EST Jose Alejandro Castro MD CHEMISTRY & BLOOD GAS ORDERABLE S Final Result Performing Organization Address [facility] de Phone Number [facility] [address] [place] [address] * (ABNORMAL) ELECTROLYTES (05/09/2008 21:10 EST) Sodium [...] ORDERABLE S Final Result Performing Organization Address [facility] Co de Phone Number [facility] [address] [place] [address] * CALCIUM IONIZED (05/09/2008 21:10 EST) Ionized Calcium Note Sample sent to Lab. [facility] 05/09/2008 21:1 0 EST 05/09/2008 21:16 EST us Jose Alejandro Castro MD CHEMISTRY & BLOOD GAS ORDERABLE S Final Result Performing Organization Address [facility] de Phone Number [facility] [address] [place] [address] * (ABNORMAL) BLOOD GAS, CG4 ISTAT (05/09/2008 [...] [facility] Sample Type ARTERIAL [facility] farm contractor buyer ID [id number] Test Performed by Respiratory [facility] 05/09/2008 21:0 9 EST 05/09/2008 21:25 EST us Jose Alejandro Castro MD CHEMISTRY & BLOOD GAS ORDERABLE S Final Result Performing Organization Address [facility] de Phone Number [facility] [address] [place] [address] * GLUCOSE, GLUCOMETER (05/09/2008 20:15 EST) Glucose, Fingerstick 94 70 - 100 mg/dl [facility] Featherer ID [id number] Test Performed by Nursing Services [facility] 05/09/2008 20:1 5 EST 05/09/2008 23:14 EST Jose Alejandro Castro MD CHEMISTRY & BLOOD GAS ORDERABLE S Final Result Performing Organization Address [facility] Co de Phone Number [facility] [address] [place] [address] * GLUCOSE, GLUCOMETER (05/09/2008 19:03 EST) Glucose, Fingerstick 84 70 - 100 mg/dl [facility] Featherer [place] [id number] Test Performed by Nursing Services [facility] 05/09/2008 19:0 3 EST 05/09/2008 23:14 EST Jose Alejandro Castro MD CHEMISTRY & BLOOD GAS ORDERABLE S Final Result Performing Organization Address [facility] Co de Phone Number [facility] [address] [place] [address] * GLUCOSE, GLUCOMETER (05/09/2008 18:09 EST) Glucose, Fingerstick 72 70 - 100 mg/dl [facility] Featherer ID [id number] Test Performed by Nursing Services [facility] 05/09/2008 18:0 9 EST 05/09/2008 23:14 EST Jose Alejandro Castro MD CHEMISTRY & BLOOD GAS ORDERABLE S Final Result Performing Organization Address [facility] de Phone Number [facility] [address] [place] [address] * CALCIUM, IONIZED (05/09/2008 17:20 EST) Calcium, Ionized 1.12 1.12 - 1.32 mmol/L [facility] farm contractor buyer [place] [id number] Test performed by Chemistry [facility] 05/09/2008 17:2 0 EST 05/09/2008 17:24 EST us Jose Alejandro Castro MD CHEMISTRY & BLOOD GAS ORDERABLE S Final Result Performing Organization Address [facility] [facility] Co de Phone Number [facility] [address] [place] [address] * (ABNORMAL) BLOOD GAS, CG4 ISTAT (05/09/2008 17:16 EST) pH, i-STAT 7.36 7.35 - 7.45 [facility] pCO2, i-STAT 33(L) 35 - 45 mmHg [facility] pO2, i-STAT 84(L) 85 - 100 mmHg [facility] TCO2, i-STAT 20 mEq/L [facility] O2 Saturation 96 % [facility] Lactate, i-STAT 0.6 mmol/L [facility] Base Deficit 6 [facility] Temperature 36.9 C [facility] FIO2 .25 [facility] Sample Type ARTERIAL [facility] farm contractor buyer ID [id number] Test Performed by Respiratory [facility] 05/09/2008 17:1 6 EST 05/09/2008 17:22 EST us Jose Alejandro Castro MD CHEMISTRY & BLOOD GAS ORDERABLE S Final Result Performing Organization Address [facility] de Phone Number [facility] [address] [place] [address] * (ABNORMAL) BLOOD GAS, G3 ISTAT (05/09/2008 17:09 EST) pH, i-STAT 7.39 7.35 - 7.45 [facility] pCO2, i-STAT 36 35 - 45 mmHg [facility] pO2, i-STAT 39(L) 85 - 100 mmHg [facility] TCO2, i-STAT 23 mEq/L [facility] O2 Saturation 74 % [facility] Base Deficit 3 [facility] Temperature 36.9 C [facility] FIO2 .25 [facility] Sample Type VENOUS [facility] farm contractor buyer ID [id number] Test Performed by Respiratory [facility] 05/09/2008 17:0 9 EST 05/09/2008 17:22 EST Jose Alejandro Castro MD CHEMISTRY & BLOOD GAS ORDERABLE S Final Result [facility] [address] [place] [address] * GLUCOSE, GLUCOMETER (05/09/2008 17:06 EST) Glucose, Fingerstick 85 70 - 100 mg/dl [facility] Featherer ID [id number] Test Performed by Nursing Services [facility] 05/09/2008 17:0 6 EST 05/09/2008 23:14 EST us Jose Alejandro Castro MD CHEMISTRY & BLOOD GAS ORDERABLE S Final Result Performing Organization Address [facility] Co de Phone Number [facility] [address] [place] [address] * GLUCOSE, SERUM (05/09/2008 17:00 EST) Glucose, Serum 72 70 - 100 mg/dl [facility] 05/09/2008 17:0 0 EST 05/09/2008 17:15 EST Jose Alejandro Castro MD CHEMISTRY & BLOOD GAS ORDERABLE S Final Result Performing Organization Address [facility] Co de Phone Number [facility] [address] [place] [address] * PHOSPHORUS (05/09/2008 17:00 EST) Phosphorus 2.9 2.7 - 4.7 mg/dl [facility] 05/09/2008 17:0 0 EST 05/09/2008 17:15 EST Jose Alejandro Castro MD CHEMISTRY & BLOOD GAS ORDERABLE S Final Result Performing Organization Address City/[facility]/ZIP Co de Phone Number [facility] [address] [place] [address] * MAGNESIUM (05/09/2008 17:00 EST) Magnesium 2.0 1.7 - 2.8 mg/dl [facility] 05/09/2008 17:0 0 EST 05/09/2008 17:15 EST Jose Alejandro Castro MD CHEMISTRY & BLOOD GAS ORDERABLE S Final Result Performing Organization Address City/[facility]/ZIP Co de Phone Number [facility] [address] [place] [address] * CREATININE (05/09/2008 17:00 EST) Pathologist [facility] Creatinine 0.80 0.6 - 1.2 mg/dl [facility] GFR, Calculated Age <18 ml/min/1.7 3m2 [facility] 05/09/2008 17:0 0 EST 05/09/2008 17:15 EST Jose Alejandro Castro MD CHEMISTRY & BLOOD GAS ORDERABLE S Final Result Performing Organization Address [facility] Co de Phone Number [facility] [address] [place] [address] * BUN (05/09/2008 17:00 EST) BUN 16 8 - 21 mg/dl [facility] 05/09/2008 17:0 0 EST 05/09/2008 17:15 EST Jose Alejandro Castro MD CHEMISTRY & BLOOD GAS ORDERABLE S Final Result Performing Organization Address [facility] de Phone Number [facility] [address] [place] [address] * (ABNORMAL) ELECTROLYTES (05/09/2008 17:00 EST) Sodium 134(L) 136 - 145 mEq/L [facility] Potassium 6.1(HH) 3.5 - 5.0 mEq/L [facility] Comment:Sample retested, res ult confirmed Chloride 105 96 - 110 mEq/L [facility] CO2 23(L) 24 - 32 mEq/L [facility] 05/09/2008 17:0 0 EST 05/09/2008 17:15 EST us Jose Alejandro Castro MD CHEMISTRY & BLOOD GAS ORDERABLE S Final Result Performing Organization Address [facility] Co de Phone Number [facility] [address] [place] [address] * CALCIUM IONIZED (05/09/2008 17:00 EST) Ionized Calcium Note Sample sent to Lab. [facility] 05/09/2008 17:0 0 EST 05/09/2008 17:15 EST us Jose Alejandro Castro MD CHEMISTRY & BLOOD GAS ORDERABLE S Final Result Performing Organization Address [facility] de Phone Number [facility] [address] [place] [address] * GLUCOSE, GLUCOMETER (05/09/2008 15:58 EST) Glucose, Fingerstick 85 70 - 100 mg/dl [facility] Featherer [place] [id number] Test Performed by Nursing Services [facility] 05/09/2008 15:5 8 EST 05/09/2008 23:14 EST us Jose Alejandro Castro MD CHEMISTRY & BLOOD GAS ORDERABLE S Final Result Performing Organization Address [facility] de Phone Number [facility] [address] [place] [address] * GLUCOSE, GLUCOMETER (05/09/2008 15:04 EST) Glucose, Fingerstick 83 70 - 100 mg/dl [facility] [place] Fe[place] [id number] Test Performed by Nursing Services [facility] 05/09/2008 15:0 4 EST 05/09/2008 23:14 EST us Jose Alejandro Castro MD CHEMISTRY & BLOOD GAS ORDERABLE S Final Result Performing Organization Address [facility]/ZIP Co de Phone Number [facility] [address] [place] [address] * GLUCOSE, GLUCOMETER (05/09/2008 14:05 EST) Glucose, Fingerstick 88 70 - 100 mg/dl [facility] Featherer [place] [id number] Test Performed by Nursing Services [facility] 05/09/2008 14:0 5 EST 05/09/2008 23:14 EST us Jose Alejandro Castro MD CHEMISTRY & BLOOD GAS ORDERABLE S Final Result Performing Organization Address City/[facility] Co de Phone Number [facility] [address] [place] [address] * (ABNORMAL) BLOOD GAS, G3 ISTAT (05/09/2008 [...] [facility] Sample Type VENOUS [facility] farm contractor buyer ID [id number] Test Performed by Respiratory [facility] 05/09/2008 13:2 6 EST 05/09/2008 13:30 EST us Jose Alejandro Castor MD CHEMISTRY & BLOOD GAS ORDERABLE S Final Result [facility] [address] [place] [address] * (ABNORMAL) CALCIUM, IONIZED (05/09/2008 13:21 EST) Calcium, Ionized 1.11(L) 1.12 - 1.32 mmol/L [facility] [employer] [place] [id number] Test performed by Chemistry [facility] 05/09/2008 13:2 1 EST 05/09/2008 13:30 EST Jose Alejandro Castro MD CHEMISTRY & BLOOD GAS ORDERABLE S Final Result Performing Organization Address [facility] Co de Phone Number [facility] [address] [place] [address] * (ABNORMAL) BLOOD GAS, CG4 ISTAT (05/09/2008 13:12 EST) pH, i-STAT 7.39 7.35 - 7.45 [facility] pCO2, i-STAT 31(L) 35 - 45 mmHg [facility] pO2, i-STAT 128(H) 85 - 100 mmHg [facility] TCO2, i-STAT 19 mEq/L [facility] O2 Saturation 99 % [facility] Lactate, i-STAT 1.0 mmol/L [facility] Base Deficit 6 [facility] Temperature 37.1 C [facility] FIO2 .30 [facility] Sample Type ARTERIAL [facility] farm contractor buyer ID [id number] Test Performed by Respiratory [facility] 05/09/2008 13:1 2 EST 05/09/2008 13:30 EST Jose Alejandro Castro MD CHEMISTRY & BLOOD GAS ORDERABLE S Final Result Performing Organization Address [facility] de Phone Number [facility] [address] [place] [address] * GLUCOSE, GLUCOMETER (05/09/2008 13:08 EST) Glucose, Fingerstick 94 70 - 100 mg/dl [facility] Featherer [place] [id number] Test Performed by Nursing Services [facility] 05/09/2008 13:0 8 EST 05/09/2008 23:14 EST Jose Alejandro Castro MD CHEMISTRY & BLOOD GAS ORDERABLE S Final Result Performing Organization Address [facility] Co de Phone Number [facility] [address] [place] [address] * GLUCOSE, SERUM (05/09/2008 13:00 EST) Glucose, Serum 87 70 - 100 mg/dl [facility] 05/09/2008 13:0 0 EST 05/09/2008 13:13 EST Jose Alejandro Castro MD CHEMISTRY & BLOOD GAS ORDERABLE S Final Result Performing Organization Address [facility] Phone Number [facility] [address] [place] [address] * PHOSPHORUS (05/09/2008 13:00 EST) Phosphorus 3.2 2.7 - 4.7 mg/dl [facility] 05/09/2008 13:0 0 EST 05/09/2008 13:13 EST Jose Alejandro Castro MD CHEMISTRY & BLOOD GAS ORDERABLE S Final Result Performing Organization Address [facility] Phone Number [facility] [address] [place] [address] * MAGNESIUM (05/09/2008 13:00 EST) Magnesium 1.9 1.7 - 2.8 mg/dl [facility] 05/09/2008 13:0 0 EST 05/09/2008 13:13 EST Jose Alejandro Castro MD CHEMISTRY & BLOOD GAS ORDERABLE S Final Result Performing Organization Address [facility] Phone Number [facility] [address] [place] [address] * (ABNORMAL) ELECTROLYTES (05/09/2008 13:00 EST) Sodium 133(L) 136 - 145 mEq/L [facility] Potassium 5.8(H) 3.5 - 5.0 mEq/L [facility] Chloride 106 96 - 110 mEq/L [facility] CO2 21(L) 24 - 32 mEq/L [facility] 05/09/2008 13:0 0 EST 05/09/2008 13:13 EST Jose Alejandro Castro MD CHEMISTRY & BLOOD GAS ORDERABLE S Final Result Performing Organization Address City/[facility]/ZIP Co de Phone Number [facility] [address] [place] [address] * CALCIUM IONIZED (05/09/2008 13:00 EST) Ionized Calcium Note Sample sent to Lab. [facility] 05/09/2008 13:0 0 EST 05/09/2008 13:13 EST Jose Alejandro Castro MD CHEMISTRY & BLOOD GAS ORDERABLE S Final Result Performing Organization Address [facility]/ZIP Co de Phone Number [facility] [address] [place] [address] * (ABNORMAL) GLUCOSE, GLUCOMETER (05/09/2008 11:57 EST) Glucose, Fingerstick 104(H) 70 - 100 mg/dl [facility] Feat[employer]r [place] [id number] Test Performed by Nursing Services [facility] 05/09/2008 11:5 7 EST 05/09/2008 23:14 EST Jose Alejandro Castro MD CHEMISTRY & BLOOD GAS ORDERABLE S Final Result Performing Organization Address [facility] Co de Phone Number [facility] [address] [place] [address] * (ABNORMAL) GLUCOSE, GLUCOMETER (05/09/2008 11:07 EST) Glucose, Fingerstick 128(H) 70 - 100 mg/dl [facility] Featherer [place] [id number] Test Performed by Nursing Services [facility] 05/09/2008 11:0 7 EST 05/09/2008 23:14 EST Jose Alejandro Castro MD CHEMISTRY & BLOOD GAS ORDERABLE S Final Result Performing Organization Address City/[facility]/ZIP Co de Phone Number [facility] [address] [place] [address] * (ABNORMAL) GLUCOSE, GLUCOMETER (05/09/2008 10:17 EST) Glucose, Fingerstick 123(H) 70 - 100 mg/dl [facility] Featherer [place] [id number] Test Performed by Nursing Services [facility] 05/09/2008 10:1 7 EST 05/09/2008 23:14 EST Jose Alejandro Castro MD CHEMISTRY & BLOOD GAS ORDERABLE S Final Result Performing Organization Address [facility] Co de Phone Number [facility] [address] [place] [address] * SODIUM, URINE RANDOM (05/09/2008 10:17 EST) Sodium, Ur 99.0 mEq/L [facility] 05/09/2008 10:1 7 EST 05/09/2008 10:27 EST Jose Alejandro Castro MD URINALYSIS ORDERABLES Final Res ult Performing Organization Address [facility] de Phone Number [facility] [address] [place] [address] * (ABNORMAL) GLUCOSE, GLUCOMETER (05/09/2008 9:10 EST) Glucose, Fingerstick 105(H) 70 - 100 mg/dl [facility] Featherer ID [id number] Test Performed by Nursing Services [facility] 05/09/2008 9:10 EST 05/09/2008 23:14 EST Jose Alejandro Castro MD CHEMISTRY & BLOOD GAS ORDERABLE S Final Result Performing Organization Address [facility] de Phone Number [facility] [address] [place] [address] * (ABNORMAL) CALCIUM, IONIZED (05/09/2008 8:24 EST) Calcium, Ionized 1.07(L) 1.12 - 1.32 mmol/L [facility] [employer] [place] [id number] Test performed by Chemistry [facility] 05/09/2008 8:24 EST 05/09/2008 8:27 EST us Jose Alejandro Castro MD CHEMISTRY & BLOOD GAS ORDERABLE S Final Result [facility] [address] [place] [address] * (ABNORMAL) BLOOD GAS, G3 ISTAT (05/09/2008 8:18 EST) pH, i-STAT 7.36 7.35 - 7.45 [facility] pCO2, i-STAT 37 35 - 45 mmHg [facility] pO2, i-STAT 40(L) 85 - 100 mmHg [facility] TCO2, i-STAT 22 mEq/L [facility] O2 Saturation 73 % [facility] Base Deficit 4 [facility] Temperature 36.9 C [facility] FIO2 .40 [facility] Sample Type VENOUS [facility] farm [employer] buyer ID [id number] Test Performed by Respiratory [facility] 05/09/2008 8:18 EST 05/09/2008 8:25 EST us Jose Alejandro Castro MD CHEMISTRY & BLOOD GAS ORDERABLE S Final Result [facility] [address] [place] [address] * (ABNORMAL) BLOOD GAS, CG4 ISTAT (05/09/2008 8:08 EST) pH, i-STAT 7.38 7.35 - 7.45 [facility] pCO2, i-STAT 29(L) 35 - 45 mmHg [facility] pO2, i-STAT 138(H) 85 - 100 mmHg [facility] TCO2, i-STAT 18 mEq/L [facility] O2 Saturation 99 % [facility] Lactate, i-STAT 1.2 mmol/L [facility] Base Deficit 7 [facility] Temperature 36.9 C [facility] FIO2 .40 [facility] Sample Type ARTERIAL [facility] farm contractor buyer ID [id number] Test Performed by Respiratory [facility] 05/09/2008 8:08 EST 05/09/2008 8:25 EST us Jose Alejandro Castro MD CHEMISTRY & BLOOD GAS ORDERABLE S Final Result Performing Organization Address [facility] de Phone Number [facility] [address] [place] [address] * (ABNORMAL) GLUCOSE, GLUCOMETER (05/09/2008 8:05 EST) Glucose, Fingerstick 109(H) 70 - 100 mg/dl [facility] Featherer [place] [id number] Test Performed by Nursing Services [facility] 05/09/2008 8:05 EST 05/09/2008 23:14 EST us Jose Alejandro Castro MD CHEMISTRY & BLOOD GAS ORDERABLE S Final Result Performing Organization Address [facility] Phone Number [facility] [address] [place] [address] * (ABNORMAL) GLUCOSE, SERUM (05/09/2008 8:00 EST) Glucose, Serum 103(H) 70 - 100 mg/dl [facility] Comment:Heparinized plasma. 05/09/2008 8:00 EST 05/09/2008 8:19 EST us Jose Alejandro Castro MD CHEMISTRY & BLOOD GAS ORDERABLE S Final Result Performing Organization Address [facility] de Phone Number [facility] [address] [place] [address] * PHOSPHORUS (05/09/2008 8:00 EST) Phosphorus 3.2 2.7 - 4.7 mg/dl [facility] Comment:Heparinized plasma. 05/09/2008 8:00 EST 05/09/2008 8:19 EST us Jose Alejandro Castro MD CHEMISTRY & BLOOD GAS ORDERABLE S Final Result Performing Organization Address [facility] Co de Phone Number [facility] [address] [place] [address] * MAGNESIUM (05/09/2008 8:00 EST) Pathologist [facility] Magnesium 1.7 1.7 - 2.8 mg/dl [facility] Comment:Heparinized plasma. 05/09/2008 8:00 EST 05/09/2008 8:19 EST Jose Alejandro Castro MD CHEMISTRY & BLOOD GAS ORDERABLE S Final Result Performing Organization Address [facility] Phone Number [facility] [address] [place] [address] * (ABNORMAL) ELECTROLYTES (05/09/2008 8:00 EST) Pathologist [facility] Sodium 133(L) 136 - 145 mEq/L [facility] Comment:Heparinized plasma. Potassium 5.6(H) 3.5 - 5.0 mEq/L [facility] Comment:Heparinized plasma. Chloride 106 96 - 110 mEq/L [facility] Comment:Heparinized plasma. CO2 21(L) 24 - 32 mEq/L [facility] Comment:Heparinized plasma. 05/09/2008 8:00 EST 05/09/2008 8:19 EST Jose Alejandro Castro MD CHEMISTRY & BLOOD GAS ORDERABLE S Final Result Performing Organization Address [facility] Phone Number [facility] [address] [place] [address] * CALCIUM IONIZED (05/09/2008 8:00 EST) Pathologist [facility] Ionized Calcium Note Sample sent to Lab. [facility] 05/09/2008 8:00 EST 05/09/2008 8:19 EST Jose Alejandro Castro MD CHEMISTRY & BLOOD GAS ORDERABLE S Final Result Performing Organization Address [facility] de Phone Number [facility] [address] [place] [address] * PORTABLE CHEST 1 VIEW (05/09/2008 7:15 [...] pneumonia, no improvement seen. Jessika Rivera MD IM DIAGNOSTIC IMAGING ORDER LYNDSEY Final Result * (ABNORMAL) GLUCOSE, GLUCOMETER (05/09/2008 7:00 EST) Glucose, Fingerstick 62(L) 70 - 100 mg/dl [facility] Featherer [place] [id number] Test Performed by Nursing Services [facility] 05/09/2008 7:00 EST 05/09/2008 23:14 EST Jose Alejandro Castro MD CHEMISTRY & BLOOD GAS ORDERABLE S Final Result Performing Organization Address [facility] de Phone Number [facility] [address] [place] [address] * GLUCOSE, GLUCOMETER (05/09/2008 6:03 EST) Glucose, Fingerstick 78 70 - 100 mg/dl [facility] Feat[employer]r [place] [id number] Test Performed by Nursing Services [facility] 05/09/2008 6:03 EST 05/09/2008 23:14 EST Jose Alejandro Castro MD CHEMISTRY & BLOOD GAS ORDERABLE S Final Result Performing Organization Address [facility] Phone Number [facility] [address] [place] [address] * TROPONIN I (05/09/2008 5:20 EST) Troponin I pre 2012 0.73 ng/ml [facility] Comment: Reference Range: Normal: ??Less than 0.05 Indeterminate: ??0.05-0.80 Positive: ??Greater than 0.80 05/09/2008 5:20 EST 05/09/2008 5:23 EST Jose Alejandro Castro MD CHEMISTRY & BLOOD GAS ORDERABLE S Final Result Performing Organization Address [facility] de Phone Number [facility] [address] [place] [address] * (ABNORMAL) CK MB WITH TOTAL CK (05/09/2008 5:20 EST) CK 6,434 U/L [facility] MB 125.6(H) 0 - 5.0 ng/ml [facility] CK-MB Index 2.0 0 - 2.5 [facility] 05/09/2008 5:20 EST 05/09/2008 5:23 EST Jose Alejandro Castro MD CHEMISTRY & BLOOD GAS ORDERABLE S Final Result Performing Organization Address [facility] de Phone Number [facility] [address] [place] [address] * (ABNORMAL) GLUCOSE, GLUCOMETER (05/09/2008 5:00 EST) Glucose, Fingerstick 119(H) 70 - 100 mg/dl [facility] Featherer [place] [id number] Test Performed by Nursing Services [facility] 05/09/2008 5:00 EST 05/09/2008 23:14 EST Jose Alejandro Castro MD CHEMISTRY & BLOOD GAS ORDERABLE S Final Result Performing Organization Address [facility] de Phone Number [facility] [address] [place] [address] * (ABNORMAL) CALCIUM, IONIZED (05/09/2008 4:27 EST) Calcium, Ionized 1.05(L) 1.12 - 1.32 mmol/L [facility] [employer] [place] [id number] Test performed by Chemistry [facility] 05/09/2008 4:27 EST 05/09/2008 4:31 EST Jose Alejandro Castro MD CHEMISTRY & BLOOD GAS ORDERABLE S Final Result Performing Organization Address [facility] de Phone Number [facility] [address] [place] [address] * (ABNORMAL) BLOOD GAS, G3 ISTAT (05/09/2008 4:19 EST) pH, i-STAT 7.33(L) 7.35 - 7.45 [facility] pCO2, i-STAT 35 35 - 45 mmHg [facility] pO2, i-STAT 52(L) 85 - 100 mmHg [facility] TCO2, i-STAT 20 mEq/L [facility] O2 Saturation 85 % [facility] Base Deficit 7 [facility] Temperature 36.4 C [facility] FIO2 .40 [facility] Sample Type VENOUS [facility] farm contractor buyer ID [id number] Test Performed by Respiratory [facility] 05/09/2008 4:19 EST 05/09/2008 4:22 EST Jose Alejandro Castro MD CHEMISTRY & BLOOD GAS ORDERABLE S Final Result Performing Organization Address [facility] Co de Phone Number [facility] [address] [place] [address] * (ABNORMAL) BLOOD GAS, CG4 ISTAT (05/09/2008 4:13 EST) pH, i-STAT 7.39 7.35 - 7.45 [facility] pCO2, i-STAT 30(L) 35 - 45 mmHg [facility] pO2, i-STAT 174(H) 85 - 100 mmHg [facility] TCO2, i-STAT 19 mEq/L [facility] O2 Saturation 100 % [facility] Lactate, i-STAT 1.6 mmol/L [facility] Base Deficit 6 [facility] Temperature 36.4 C [facility] FIO2 .40 [facility] Sample Type ARTERIAL [facility] farm contractor buyer ID [id number] Test Performed by Respiratory [facility] 05/09/2008 4:13 EST 05/09/2008 4:22 EST Jose Alejandro Castro MD CHEMISTRY & BLOOD GAS ORDERABLE S Final Result Performing Organization Address [facility] Co de Phone Number [facility] [address] [place] [address] * (ABNORMAL) GLUCOSE, GLUCOMETER (05/09/2008 4:10 EST) Glucose, Fingerstick 112(H) 70 - 100 mg/dl [facility] Featherer [place] [id number] Test Performed by Nursing Services [facility] 05/09/2008 4:10 EST 05/09/2008 23:14 EST Jose Alejandro Castro MD CHEMISTRY & BLOOD GAS ORDERABLE S Final Result Performing Organization Address [facility] Phone Number [facility] [address] [place] [address] * (ABNORMAL) AST (05/09/2008 4:10 EST) AST 273(H) 15 - 46 U/L [facility] Comment:Sample retested, res ult confirmed 05/09/2008 4:10 EST 05/09/2008 4:17 EST Jose Alejandro Castro MD CHEMISTRY & BLOOD GAS ORDERABLE S Final Result Performing Organization Address [facility] Phone Number [facility] [address] [place] [address] * (ABNORMAL) PTT (05/09/2008 4:10 EST) PTT 42(H) 20 - 35 secs [facility] Comment:Therapeutic Heparin range: 60-100 seconds 05/09/2008 4:10 EST 05/09/2008 4:17 EST Jose Alejandro Castro MD HEMATOLOGY & PF4 ORDERABLES Fin al Result Performing Organization Address [facility] Phone Number [facility] [address] [place] [address] * (ABNORMAL) PROTIME (05/09/2008 4:10 EST) Pro Time 23.1(H) 12.0 - 15.0 secs [facility] I.N.R. 2.0(H) 0.9 - 1.1 Ratio [facility] Comment: Moderate Intensity Coumadin INR = 2.0-3.0 Adjustments in anticoagulant therapy dose should be based upon the INR and NOT the Pro Time. 05/09/2008 4:10 EST 05/09/2008 4:17 EST Jose Alejandro Castro MD HEMATOLOGY & PF4 ORDERABLES Fin al Result Performing Organization Address [facility] Co de Phone Number [facility] [address] [place] [address] * (ABNORMAL) GLUCOSE, SERUM (05/09/2008 4:10 EST) Glucose, Serum 101(H) 70 - 100 mg/dl [facility] 05/09/2008 4:10 EST 05/09/2008 4:17 EST Jose Alejandro Castro MD CHEMISTRY & BLOOD GAS ORDERABLE S Final Result Performing Organization Address [facility] Phone Number [facility] [address] [place] [address] * PHOSPHORUS (05/09/2008 4:10 EST) Phosphorus 3.1 2.7 - 4.7 mg/dl [facility] 05/09/2008 4:10 EST 05/09/2008 4:17 EST Jose Alejandro Castro MD CHEMISTRY & BLOOD GAS ORDERABLE S Final Result Performing Organization Address [facility] Phone Number [facility] [address] [place] [address] * MAGNESIUM (05/09/2008 4:10 EST) Magnesium 1.8 1.7 - 2.8 mg/dl [facility] 05/09/2008 4:10 EST 05/09/2008 4:17 EST Jose Alejandro Castro MD CHEMISTRY & BLOOD GAS ORDERABLE S Final Result Performing Organization Address [facility] de Phone Number [facility] [address] [place] [address] * GGT (05/09/2008 4:10 EST) GGT 34 10 - 35 U/L [facility] 05/09/2008 4:10 EST 05/09/2008 4:17 EST us Jose Alejandro Castro MD CHEMISTRY & BLOOD GAS ORDERABLE S Final Result Performing Organization Address City/[facility]/ZIP Co de Phone Number [facility] [address] [place] [address] * CREATININE (05/09/2008 4:10 EST) Creatinine 0.80 0.6 - 1.2 mg/dl [facility] GFR, Calculated Age <18 ml/min/1.7 3m2 [facility] 05/09/2008 4:10 EST 05/09/2008 4:17 EST us Jose Alejandro Castro MD CHEMISTRY & BLOOD GAS ORDERABLE S Final Result Performing Organization Address [facility] Co de Phone Number [facility] [address] [place] [address] * BUN (05/09/2008 4:10 EST) BUN 10 8 - 21 mg/dl [facility] 05/09/2008 4:10 EST 05/09/2008 4:17 EST us Jose Alejandro Castro MD CHEMISTRY & BLOOD GAS ORDERABLE S Final Result Performing Organization Address City/[facility] Co de Phone Number [facility] [address] [place] [address] * TOTAL & DIRECT BILIRUBIN (05/09/2008 4:10 EST) Conjugated Bilirubin 0.0 0.0 - 0.3 mg/dl [facility] Unconjugated Bilirubin 0.6 0.1 - 1.1 mg/dl [facility] Bilirubin, Total <0.5 0.0 - 1.4 mg/dl [facility] 05/09/2008 4:10 EST 05/09/2008 4:17 EST us Jose Alejandro Castro MD CHEMISTRY & BLOOD GAS ORDERABLE S Final Result Performing Organization Address City/[facility]/ZIP Co de Phone Number [facility] [address] [place] [address] * (ABNORMAL) ALT (05/09/2008 4:10 EST) ALT 89(H) 0 - 45 U/L [facility] 05/09/2008 4:10 EST 05/09/2008 4:17 EST Jose Alejandro Castro MD CHEMISTRY & BLOOD GAS ORDERABLE S Final Result Performing Organization Address [facility] de Phone Number [facility] [address] [place] [address] * (ABNORMAL) ALBUMIN (05/09/2008 4:10 EST) Pathologist [facility] Albumin 2.7(L) 3.0 - 5.5 g/dl [facility] 05/09/2008 4:10 EST 05/09/2008 4:17 EST Jose Alejandro Castro MD CHEMISTRY & BLOOD GAS ORDERABLE S Final Result Performing Organization Address [facility] de Phone Number [facility] [address] [place] [address] * (ABNORMAL) ELECTROLYTES (05/09/2008 4:10 EST) Sodium 135(L) 136 - 145 mEq/L [facility] Potassium 5.3(H) 3.5 - 5.0 mEq/L [facility] Chloride 107 96 - 110 mEq/L [facility] CO2 22(L) 24 - 32 mEq/L [facility] 05/09/2008 4:10 EST 05/09/2008 4:17 EST us Jose Alejandro Castro MD CHEMISTRY & BLOOD GAS ORDERABLE S Final Result Performing Organization Address City/[facility] Co de Phone Number [facility] [address] [place] [address] * TROPONIN I (05/09/2008 4:10 EST) [facility] Troponin I pre 2012 Sample quantity insufficient for testing. ng/ml [facility] 05/09/2008 4:10 EST 05/09/2008 4:17 EST Jose Alejandro Castro MD CHEMISTRY & BLOOD GAS ORDERABLE S Final Result Performing Organization Address City/[facility]/ZIP Co de Phone Number [facility] [address] [place] [address] * CK MB WITH TOTAL CK (05/09/2008 4:10 EST) [facility] CK Sample quantity insufficient for testing. U/L [facility] MB Sample quantity insufficient for testing. 0 - 5.0 ng/ml [facility] CK-MB Index Sample quantity insufficient for testing. 0 - 2.5 [facility] 05/09/2008 4:10 EST 05/09/2008 4:17 EST Jose Alejandro Castro MD CHEMISTRY & BLOOD GAS ORDERABLE S Final Result Performing Organization Address [facility] Co de Phone Number [facility] [address] [place] [address] * (ABNORMAL) HEMAGRAM AND DIFFERENTIAL (05/09/2008 4:10 EST) [facility] WBC 41.47(H) 4.6 - 11.2 K/cmm [facility] [...] Anisocytosis 1+ Poikilocytosis 1+ Target cells [facility] Type of Diff: Manual TRUE [facility] 05/09/2008 4:10 EST 05/09/2008 4:17 EST Jose Alejandro Castro MD PACKAGES & DNA PROBE ORDERABLES Final Result Performing Organization Address [facility] de Phone Number [facility] [address] [place] [address] * CALCIUM IONIZED (05/09/2008 4:10 EST) Ionized Calcium Note Sample sent to Lab. [facility] 05/09/2008 4:10 EST 05/09/2008 4:17 EST Jose Alejandro Castro MD CHEMISTRY & BLOOD GAS ORDERABLE S Final Result Performing Organization Address [facility] Co de Phone Number [facility] [address] [place] [address] * (ABNORMAL) GLUCOSE, GLUCOMETER (05/09/2008 3:03 EST) Glucose, Fingerstick 219(H) 70 - 100 mg/dl [facility] Featherer ID [id number] Test Performed by Nursing Services [facility] 05/09/2008 3:03 EST 05/09/2008 23:14 EST Jose Alejandro Castro MD CHEMISTRY & BLOOD GAS ORDERABLE S Final Result Performing Organization Address [facility] Co de Phone Number [facility] [address] [place] [address] * (ABNORMAL) GLUCOSE, GLUCOMETER (05/09/2008 2:04 EST) Glucose, Fingerstick 259(H) 70 - 100 mg/dl [facility] Featherer [place] [id number] Test Performed by Nursing Services [facility] 05/09/2008 2:04 EST 05/09/2008 23:14 EST Jose Alejandro Castro MD CHEMISTRY & BLOOD GAS ORDERABLE S Final Result Performing Organization Address City/[facility]/ZIP Co de Phone Number [facility] [address] [place] [address] * (ABNORMAL) GLUCOSE, GLUCOMETER (05/09/2008 1:11 EST) Glucose, Fingerstick 258(H) 70 - 100 mg/dl [facility] Featherer [place] [id number] Test Performed by Nursing Services [facility] 05/09/2008 1:11 EST 05/09/2008 23:14 EST us Jose Alejandro Castro MD CHEMISTRY & BLOOD GAS ORDERABLE S Final Result Performing Organization Address [facility] de Phone Number [facility] [address] [place] [address] * (ABNORMAL) BLOOD GAS, G3 ISTAT (05/09/2008 [...] [facility] Sample Type ARTERIAL [facility] farm contractor buyer ID [id number] Test Performed by Respiratory [facility] 05/09/2008 0:29 EST 05/09/2008 4:22 EST Jose Alejandro Castro MD CHEMISTRY & BLOOD GAS ORDERABLE S Final Result Performing Organization Address [facility] de Phone Number [facility] [address] [place] [address] * (ABNORMAL) CALCIUM, IONIZED (05/09/2008 0:28 EST) [facility] Calcium, Ionized 1.08(L) 1.12 - 1.32 mmol/L [facility] farm [employer] [place] [id number] Test performed by Chemistry [facility] 05/09/2008 0:28 EST 05/09/2008 0:31 EST us Jose Alejandro Castro MD CHEMISTRY & BLOOD GAS ORDERABLE S Final Result Performing Organization Address [facility] de Phone Number [facility] [address] [place] [address] * (ABNORMAL) BLOOD GAS, CG4 ISTAT (05/09/2008 0:25 EST) [facility] pH, i-STAT 7.27(L) 7.35 - 7.45 [facility] [...] [facility] Sample Type ARTERIAL [facility] farm contractor buyer ID [id number] Test Performed by Respiratory [facility] 05/09/2008 0:25 EST 05/09/2008 4:22 EST us Jose Alejandro Castro MD CHEMISTRY & BLOOD GAS ORDERABLE S Final Result Performing Organization Address [facility] de Phone Number [facility] [address] [place] [address] * (ABNORMAL) GLUCOSE, GLUCOMETER (05/09/2008 0:17 EST) [facility] Glucose, Fingerstick 270(H) 70 - 100 mg/dl [facility] Featherer [place] [id number] Test Performed by Nursing Services [facility] 05/09/2008 0:17 EST 05/09/2008 23:14 EST Jose Alejandro Castro MD CHEMISTRY & BLOOD GAS ORDERABLE S Final Result Performing Organization Address [facility] de Phone Number [facility] [address] [place] [address] * (ABNORMAL) GLUCOSE, SERUM (05/09/2008 0:10 EST) Glucose, Serum 243(H) 70 - 100 mg/dl [facility] 05/09/2008 0:10 EST 05/09/2008 0:22 EST Jose Alejandro Castro MD CHEMISTRY & BLOOD GAS ORDERABLE S Final Result Performing Organization Address [facility] Phone Number [facility] [address] [place] [address] * PHOSPHORUS (05/09/2008 0:10 EST) Phosphorus 3.0 2.7 - 4.7 mg/dl [facility] 05/09/2008 0:10 EST 05/09/2008 0:22 EST Jose Alejandro Castro MD CHEMISTRY & BLOOD GAS ORDERABLE S Final Result Performing Organization Address [facility] de Phone Number [facility] [address] [place] [address] * (ABNORMAL) MAGNESIUM (05/09/2008 0:10 EST) Magnesium 1.5(L) 1.7 - 2.8 mg/dl [facility] 05/09/2008 0:10 EST 05/09/2008 0:22 EST Jose Alejandro Castro MD CHEMISTRY & BLOOD GAS ORDERABLE S Final Result Performing Organization Address [facility] de Phone Number [facility] [address] [place] [address] * (ABNORMAL) ELECTROLYTES (05/09/2008 0:10 EST) Sodium 138 136 - 145 mEq/L [facility] Potassium 5.6(H) 3.5 - 5.0 mEq/L [facility] Chloride 109 96 - 110 mEq/L [facility] CO2 19(L) 24 - 32 mEq/L [facility] 05/09/2008 0:10 EST 05/09/2008 0:22 EST Jose Alejandro Castro MD CHEMISTRY & BLOOD GAS ORDERABLE S Final Result Performing Organization Address City/[facility]/ZIP Co de Phone Number [facility] [address] [place] [address] * CALCIUM IONIZED (05/09/2008 0:10 EST) Ionized Calcium Note Sample sent to Lab. [facility] 05/09/2008 0:10 EST 05/09/2008 0:22 EST Jose Alejandro Castro MD CHEMISTRY & BLOOD GAS ORDERABLE S Final Result Performing Organization Address City/[facility]/ZIP Co de Phone Number [facility] [address] [place] [address] * (ABNORMAL) GLUCOSE, GLUCOMETER (05/08/2008 22:59 EST) Glucose, Fingerstick 333(H) 70 - 100 mg/dl [facility] Featherer ID [id number] Test Performed by Nursing Services [facility] 05/08/2008 22:5 9 EST 05/08/2008 23:11 EST Jose Alejandro Castro MD CHEMISTRY & BLOOD GAS ORDERABLE S Final Result Performing Organization Address City/[facility]/ZIP Co de Phone Number [facility] [address] [place] [address] * (ABNORMAL) GLUCOSE, GLUCOMETER (05/08/2008 21:07 EST) Glucose, Fingerstick 345(H) 70 - 100 mg/dl [facility] Featherer [place] [id number] Test Performed by Nursing Services [facility] 05/08/2008 21:0 7 EST 05/08/2008 21:20 EST Jose Alejandro Castro MD CHEMISTRY & BLOOD GAS ORDERABLE S Final Result Performing Organization Address [facility] de Phone Number [facility] [address] [place] [address] * CALCIUM, IONIZED (05/08/2008 20:17 EST) [facility] Calcium, Ionized 1.23 1.12 - 1.32 mmol/L [facility] farm [employer] [place] [id number] Test performed by Chemistry [facility] 05/08/2008 20:1 7 EST 05/08/2008 20:19 EST Jose Alejandro Castro MD CHEMISTRY & BLOOD GAS ORDERABLE S Final Result Performing Organization Address [facility] de Phone Number [facility] [address] [place] [address] * (ABNORMAL) BLOOD GAS, G3 ISTAT (05/08/2008 20:08 EST) [facility] pH, i-STAT 7.25(L) 7.35 - 7.45 [facility] [...] [facility] Sample Type VENOUS [facility] farm contractor buyer ID [id number] Test Performed by Respiratory [facility] 05/08/2008 20:0 8 EST 05/08/2008 20:15 EST us Jose Alejandro Castro MD CHEMISTRY & BLOOD GAS ORDERABLE S Final Result Performing Organization Address [facility] de Phone Number [facility] [address] [place] [address] * (ABNORMAL) GLUCOSE, GLUCOMETER (05/08/2008 20:06 EST) Glucose, Fingerstick 363(H) 70 - 100 mg/dl [facility] Featherer [place] [id number] Test Performed by Nursing Services [facility] 05/08/2008 20:0 6 EST 05/08/2008 21:19 EST Jose Alejandro Castro MD CHEMISTRY & BLOOD GAS ORDERABLE S Final Result Performing Organization Address [facility] de Phone Number [facility] [address] [place] [address] * VANCOMYCIN, RANDOM (05/08/2008 20:05 EST) Vancomycin Random 10.7 ug/ml [facility] Comment: Reference Range: Trough: 5.0-20.0 Peak: ??30.0-40.0 05/08/2008 20:0 5 EST 05/08/2008 20:11 EST Jose Alejandro Castro MD CHEMISTRY & BLOOD GAS ORDERABLE S Final Result Performing Organization Address [facility] de Phone Number [facility] [address] [place] [address] * (ABNORMAL) GLUCOSE, SERUM (05/08/2008 20:05 EST) Glucose, Serum 362(H) 70 - 100 mg/dl [facility] 05/08/2008 20:0 5 EST 05/08/2008 20:11 EST Jose Alejandro Castro MD CHEMISTRY & BLOOD GAS ORDERABLE S Final Result Performing Organization Address [facility] Co de Phone Number [facility] [address] [place] [address] * PHOSPHORUS (05/08/2008 20:05 EST) Phosphorus 2.8 2.7 - 4.7 mg/dl [facility] 05/08/2008 20:0 5 EST 05/08/2008 20:11 EST us Jose Alejandro Castro MD CHEMISTRY & BLOOD GAS ORDERABLE S Final Result Performing Organization Address [facility]/ZIP Co de Phone Number [facility] [address] [place] [address] * (ABNORMAL) MAGNESIUM (05/08/2008 20:05 EST) Magnesium 1.5(L) 1.7 - 2.8 mg/dl [facility] 05/08/2008 20:0 5 EST 05/08/2008 20:11 EST us Jose Alejandro Castro MD CHEMISTRY & BLOOD GAS ORDERABLE S Final Result Performing Organization Address [facility] de Phone Number [facility] [address] [place] [address] * CREATININE (05/08/2008 20:05 EST) Creatinine 1.10 0.6 - 1.2 mg/dl [facility] GFR, Calculated Age <18 ml/min/1.7 3m2 [facility] 05/08/2008 20:0 5 EST 05/08/2008 20:11 EST us Jose Alejandro Castro MD CHEMISTRY & BLOOD GAS ORDERABLE S Final Result Performing Organization Address City/[facility] Co de Phone Number [facility] [address] [place] [address] * BUN (05/08/2008 20:05 EST) BUN 14 8 - 21 mg/dl [facility] 05/08/2008 20:0 5 EST 05/08/2008 20:11 EST us Jose Alejandro Castro MD CHEMISTRY & BLOOD GAS ORDERABLE S Final Result Performing Organization Address City/[facility] Co de Phone Number [facility] [address] [place] [address] * (ABNORMAL) ELECTROLYTES (05/08/2008 20:05 EST) Sodium 142 136 - 145 mEq/L [facility] Potassium 4.7 3.5 - 5.0 mEq/L [facility] Chloride 111(H) 96 - 110 mEq/L [facility] CO2 17(L) 24 - 32 mEq/L [facility] 05/08/2008 20:0 5 EST 05/08/2008 20:11 EST Jose Alejandro Castro MD CHEMISTRY & BLOOD GAS ORDERABLE S Final Result Performing Organization Address City/[facility]/ZIP Co de Phone Number [facility] [address] [place] [address] * (ABNORMAL) HEMAGRAM (05/08/2008 20:05 EST) WBC 51.68(HH) 4.6 - 11.2 K/cmm [facility] RBC 4.32(L) 4.50 - 5.30 M/cmm [facility] Hemoglobin 11.5(L) 13.0 - 16.0 gm/dl [facility] Comment:HGB may be effected by elevated WBC HCT 33.8(L) 37.0 - 49.0 % [facility] MCV 78 78 - 98 fl [facility] MCH 26.5 pg [facility] MCHC 34.0 gm/dl [facility] PLT 204 156 - 312 K/cmm [facility] RDW-CV 17.2 % [facility] 05/08/2008 20:0 5 EST 05/08/2008 20:11 EST Jose Alejandro Castro MD HEMATOLOGY & PF4 ORDERABLES Fin al Result Performing Organization Address City/[facility]/ZIP Co de Phone Number [facility] [address] [place] [address] * CALCIUM IONIZED (05/08/2008 20:05 EST) Ionized Calcium Note Sample sent to Lab. [facility] 05/08/2008 20:0 5 EST 05/08/2008 20:11 EST Jose Alejandro Castro MD CHEMISTRY & BLOOD GAS ORDERABLE S Final Result Performing Organization Address [facility] de Phone Number [facility] [address] [place] [address] * (ABNORMAL) BLOOD GAS, CG4 ISTAT (05/08/2008 [...] [facility] Sample Type ARTERIAL [facility] farm contractor buyer ID [id number] Test Performed by Respiratory [facility] 05/08/2008 20:0 2 EST 05/08/2008 20:15 EST us Jose Alejandro Castro MD CHEMISTRY & BLOOD GAS ORDERABLE S Final Result Performing Organization Address [facility] de Phone Number [facility] [address] [place] [address] * MRSA MOLECULAR DETECTION (05/08/2008 20:00 EST) Specimen Description Nares Specimen submitted on a swab [facility] Result NEGATIVE for Methicillin Resistant Staphylococcus aureus DNA by PCR. [facility] Report Status Final 05/09/2008 [facility] 05/08/2008 20:0 0 EST 05/08/2008 20:44 EST Jose Alejandro Castro MD MICROBIOLOGY - GENERAL ORDERABL ES Final Result Performing Organization Address City/[facility]/ZIP Co de Phone Number [facility] [address] [place] [address] * POTASSIUM (05/08/2008 19:00 EST) Potassium 4.5 3.5 - 5.0 mEq/L [facility] 05/08/2008 19:0 0 EST 05/08/2008 19:03 EST Jose Alejandro Castro MD CHEMISTRY & BLOOD GAS ORDERABLE S Final Result Performing Organization Address [facility] Co de Phone Number [facility] [address] [place] [address] * (ABNORMAL) GLUCOSE, GLUCOMETER (05/08/2008 18:13 EST) Glucose, Fingerstick 422(H) 70 - 100 mg/dl [facility] Featherer ID [id number] Test Performed by Nursing Services [facility] 05/08/2008 18:1 3 EST 05/08/2008 21:19 EST Jose Alejandro Castro MD CHEMISTRY & BLOOD GAS ORDERABLE S Final Result Performing Organization Address [facility] de Phone Number [facility] [address] [place] [address] * (ABNORMAL) CALCIUM, IONIZED (05/08/2008 16:31 EST) Calcium, Ionized 1.37(H) 1.12 - 1.32 mmol/L [facility] farm [employer] [place] [id number] Test performed by Chemistry [facility] 05/08/2008 16:3 1 EST 05/08/2008 16:35 EST Jose Alejandro Castro MD CHEMISTRY & BLOOD GAS ORDERABLE S Final Result Performing Organization Address [facility] de Phone Number [facility] [address] [place] [address] * (ABNORMAL) GLUCOSE, SERUM (05/08/2008 16:27 EST) Glucose, Serum 456(H) 70 - 100 mg/dl [facility] 05/08/2008 16:2 7 EST 05/08/2008 16:27 EST us Jose Alejandro Castro MD CHEMISTRY & BLOOD GAS ORDERABLE S Final Result Performing Organization Address [facility] de Phone Number [facility] [address] [place] [address] * (ABNORMAL) PHOSPHORUS (05/08/2008 16:27 EST) Phosphorus 1.5(L) 2.7 - 4.7 mg/dl [facility] 05/08/2008 16:2 7 EST 05/08/2008 16:27 EST us Jose Alejandro Castro MD CHEMISTRY & BLOOD GAS ORDERABLE S Final Result Performing Organization Address [facility] Phone Number [facility] [address] [place] [address] * MAGNESIUM (05/08/2008 16:27 EST) Magnesium 1.8 1.7 - 2.8 mg/dl [facility] 05/08/2008 16:2 7 EST 05/08/2008 16:27 EST us Jose Alejandro Castro MD CHEMISTRY & BLOOD GAS ORDERABLE S Final Result Performing Organization Address [facility] de Phone Number [facility] [address] [place] [address] * (ABNORMAL) CREATININE (05/08/2008 16:27 EST) Creatinine 1.40(H) 0.6 - 1.2 mg/dl [facility] Comment:Sample retested, res ult confirmed GFR, Calculated Age <18 ml/min/1.7 3m2 [facility] 05/08/2008 16:2 7 EST 05/08/2008 16:27 EST us Jose Alejandro Castro MD CHEMISTRY & BLOOD GAS ORDERABLE S Final Result Performing Organization Address City/[facility]/ZIP Co de Phone Number [facility] [address] [place] [address] * BUN (05/08/2008 16:27 EST) BUN 16 8 - 21 mg/dl [facility] 05/08/2008 16:2 7 EST 05/08/2008 16:27 EST Jose Alejandro Castro MD CHEMISTRY & BLOOD GAS ORDERABLE S Final Result Performing Organization Address [facility] de Phone Number [facility] [address] [place] [address] * (ABNORMAL) ELECTROLYTES (05/08/2008 16:27 EST) Sodium [...] Final Result Performing Organization Address [facility] de Phone Number [facility] [address] [place] [address] * CALCIUM IONIZED (05/08/2008 16:27 EST) Ionized Calcium Note Sample sent to Lab. [facility] 05/08/2008 16:2 7 EST 05/08/2008 16:27 EST Jose Alejandro Castro MD CHEMISTRY & BLOOD GAS ORDERABLE S Final Result Performing Organization Address [facility] de Phone Number [facility] [address] [place] [address] * (ABNORMAL) BLOOD GAS, G3 ISTAT (05/08/2008 16:22 EST) pH, i-STAT 7.16(L) 7.35 - 7.45 [facility] pCO2, i-STAT 38 35 - 45 mmHg [facility] pO2, i-STAT 54(L) 85 - 100 mmHg [facility] TCO2, i-STAT 15 mEq/L [facility]SHAE [facility] O2 Saturation 82 % [facility]SHA [facility] Base Deficit 15 [facility] Temperature 35.6 C [facility] FIO2 .40 [facility] Sample Type VENOUS [facility] farm contractor buyer ID [id number] Test Performed by Respiratory [facility] 05/08/2008 16:2 2 EST 05/08/2008 16:30 EST Jose Alejandro Castro MD CHEMISTRY & BLOOD GAS ORDERABLE S Final Result Performing Organization Address [facility] de Phone Number [facility] [address] [place] [address] * (ABNORMAL) BLOOD GAS, CG4 ISTAT (05/08/2008 16:14 EST) [facility] pH, i-STAT 7.17(L) 7.35 - 7.45 [facility] pCO2, i-STAT 31(L) 35 - 45 mmHg [facility] pO2, i-STAT 119(H) 85 - 100 mmHg [facility] TCO2, i-STAT 13 mEq/L [facility] O2 Saturation 98 % TRUE [facility] Lactate, i-STAT 7.2 mmol/L [facility] Base Deficit 16 [facility]MARSHAE [facility] Temperature 35.6 C [facility] FIO2 .40 [facility] Sample Type ARTERIAL [facility] farm contractor buyer ID [id number] Test Performed by Respiratory [facility] 05/08/2008 16:1 4 EST 05/08/2008 16:30 EST us Jose Alejandro Castro MD CHEMISTRY & BLOOD GAS ORDERABLE S Final Result Performing Organization Address [facility] de Phone Number [facility] [address] [place] [address] * (ABNORMAL) GLUCOSE, GLUCOMETER (05/08/2008 16:11 EST) Glucose, Fingerstick 456(H) 70 - 100 mg/dl [facility] Featherer [place] [id number] Test Performed by Nursing Services [facility] 05/08/2008 16:1 1 EST 05/08/2008 21:19 EST us Jose Alejandro Castro MD CHEMISTRY & BLOOD GAS ORDERABLE S Final Result Performing Organization Address City/State/[facility] Co de Phone Number [facility] [address] [place] [address] * PORTABLE CHEST 1 VIEW (05/08/2008 14:48 [...] * (ABNORMAL) CALCIUM, IONIZED (05/08/2008 13:04 EST) Pathologist [facility] Calcium, Ionized 1.42(H) 1.12 - 1.32 mmol/L [facility] farm [employer] buyer [place] [id number] Test performed by Chemistry [facility] 05/08/2008 13:0 4 EST 05/08/2008 13:08 EST Jose Alejandro Castro MD CHEMISTRY & BLOOD GAS ORDERABLE S Final Result Performing Organization Address [facility] de Phone Number [facility] [address] [place] [address] * (ABNORMAL) PHOSPHORUS (05/08/2008 12:57 EST) [facility] Phosphorus <1.0(L) 2.7 - 4.7 mg/dl [facility] Comment:Sample retested, res ult confirmed 05/08/2008 12:5 7 EST 05/08/2008 12:57 EST Jose Alejandro Castro MD CHEMISTRY & BLOOD GAS ORDERABLE S Final Result Performing Organization Address [facility] de Phone Number [facility] [address] [place] [address] * (ABNORMAL) HEMAGRAM AND DIFFERENTIAL (05/08/2008 12:57 EST) Pathologist [facility] WBC 20.03(H) 4.6 - 11.2 K/cmm [facility] RBC 3.88(L) 4.50 - 5.30 M/cmm [facility] Hemoglobin 10.2(L) 13.0 - 16.0 gm/dl [facility] HCT 29.8(L) 37.0 - 49.0 % [facility] MCV 77(L) 78 - 98 fl [facility] MCH 26.4 pg [facility] MCHC 34.3 gm/dl [facility] PLT 141(L) 156 - 312 K/cmm [facility] RDW-CV 17.5 % [facility] Neutrophils 65.0 % [facility] % Bands 27.0 % [facility] Lymphocytes 3.0 % [facility] Monocytes 1.0 % [facility] % Metamyelocytes 4.0 % [facility] ABS Neutrophils 13.02 K/cmm [facility] ABS Bands 5.41 K/cmm [facility] ABS Lymphs 0.60 K/cmm [facility] ABS Monocytes 0.20 K/cmm [facility] ABS Metamyelocytes 0.80 K/cmm [facility] RBC Morphology 1+ Poikilocytosis 1+ Anisocytosis 1+ Microcytes 1+ Ovalocytes [facility] Comment Rev'd by Pathologist ANISHA GARCIA Type of Diff: Manual [facility] 05/08/2008 12:5 7 EST 05/08/2008 12:57 EST us Jose Alejandro Castro MD PACKAGES & DNA PROBE ORDERABLES Final Result [facility] [address] [place] [address] * (ABNORMAL) TOTAL PROTEIN (05/08/2008 12:57 EST) [facility] Total Protein 5.0(L) 6.3 - 8.6 g/dl [facility] 05/08/2008 12:5 7 EST 05/08/2008 12:57 EST Jose Alejandro Casrto MD CHEMISTRY & BLOOD GAS ORDERABLE S Final Result Performing Organization Address [facility] Co de Phone Number [facility] [address] [place] [address] * (ABNORMAL) GLUCOSE, SERUM (05/08/2008 12:57 EST) Glucose, Serum 488(H) 70 - 100 mg/dl [facility] 05/08/2008 12:5 7 EST 05/08/2008 12:57 EST Jose Alejandro Castro MD CHEMISTRY & BLOOD GAS ORDERABLE S Final Result Performing Organization Address [facility] Phone Number [facility] [address] [place] [address] * (ABNORMAL) MAGNESIUM (05/08/2008 12:57 EST) Magnesium 1.4(L) 1.7 - 2.8 mg/dl [facility] 05/08/2008 12:5 7 EST 05/08/2008 12:57 EST Jose Alejandro Castro MD CHEMISTRY & BLOOD GAS ORDERABLE S Final Result Performing Organization Address [facility] Phone Number [facility] [address] [place] [address] * TOTAL & DIRECT BILIRUBIN (05/08/2008 12:57 EST) Conjugated Bilirubin 0.0 0.0 - 0.3 mg/dl [facility] Unconjugated Bilirubin 0.3 0.1 - 1.1 mg/dl [facility] Bilirubin, Total <0.5 0.0 - 1.4 mg/dl [facility] 05/08/2008 12:5 7 EST 05/08/2008 12:57 EST us Jose Alejandro Castro MD CHEMISTRY & BLOOD GAS ORDERABLE S Final Result Performing Organization Address [facility]/ZIP Co de Phone Number [facility] [address] [place] [address] * (ABNORMAL) ALBUMIN (05/08/2008 12:57 EST) Pathologist [facility] Albumin 2.7(L) 3.0 - 5.5 g/dl [facility] 05/08/2008 12:5 7 EST 05/08/2008 12:57 EST Jose Alejandro Castro MD CHEMISTRY & BLOOD GAS ORDERABLE S Final Result Performing Organization Address [facility] de Phone Number [facility] [address] [place] [address] * (ABNORMAL) ELECTROLYTES (05/08/2008 12:57 EST) [facility] Sodium 141 136 - 145 mEq/L [facility] Potassium 2.6(LL) 3.5 - 5.0 mEq/L [facility] Comment:Sample retested, res ult confirmed Chloride 110 96 - 110 mEq/L [facility] CO2 15(L) 24 - 32 mEq/L [facility] 05/08/2008 12:5 7 EST 05/08/2008 12:57 EST Jose Alejandro Castro MD CHEMISTRY & BLOOD GAS ORDERABLE S Final Result Performing Organization Address [facility] de Phone Number [facility] [address] [place] [address] * CALCIUM IONIZED (05/08/2008 12:57 EST) Pathologist [facility] Ionized Calcium Note Sample sent to Lab. [facility] 05/08/2008 12:5 7 EST 05/08/2008 12:57 EST Jose Alejandro Castro MD CHEMISTRY & BLOOD GAS ORDERABLE S Final Result Performing Organization Address [facility] Co de Phone Number [facility] [address] [place] [address] * (ABNORMAL) BLOOD GAS, G3 ISTAT (05/08/2008 12:52 EST) Pathologist [facility] pH, i-STAT 7.13(L) 7.35 - 7.45 [facility] pCO2, i-STAT 36 35 - 45 mmHg [facility] pO2, i-STAT 58(L) 85 - 100 mmHg [facility] TCO2, i-STAT 13 mEq/L F[facility]NANCY [facility] O2 Saturation 82 % [facility] Base Deficit 16 [facility] Temperature 36.2 C [facility] Sample Type VENOUS [facility] farm contractor buyer ID [id number] Test Performed by Respiratory [facility] 05/08/2008 12:5 2 EST 05/08/2008 12:56 EST us Jose Alejandro Castro MD CHEMISTRY & BLOOD GAS ORDERABLE S Final Result Performing Organization Address [facility] de Phone Number [facility] [address] [place] [address] * (ABNORMAL) BLOOD GAS, CG4 ISTAT (05/08/2008 12:46 EST) [facility] pH, i-STAT 7.20(L) 7.35 - 7.45 [facility] pCO2, i-STAT 28(L) 35 - 45 mmHg [facility] pO2, i-STAT 101(H) 85 - 100 mmHg [facility] TCO2, i-STAT 12 mEq/L FRANKIE [facility] O2 Saturation 97 % [facility] Lactate, i-STAT 6.9 mmol/L SH[facility]I [facility] Base Deficit 16 FRANKIE R [facility] Temperature 36.2 C [facility] Sample Type ARTERIAL [facility] farm contractor buyer ID [id number] Test Performed by Respiratory [facility] 05/08/2008 12:4 6 EST 05/08/2008 12:56 EST Jose Alejandro Castro MD CHEMISTRY & BLOOD GAS ORDERABLE S Final Result Performing Organization Address [facility] Co de Phone Number [facility] [address] [place] [address] * BACTERIAL CULTURE, BLOOD (05/08/2008 12:00 EST) Specimen Description Blood Arterial Line Pediatric bottle received Volume of blood collected may not be adequate for detection of bacteremia/se pticemia. [facility] Result No growth [facility] Report Status Final [id number] [facility] 05/08/2008 12:0 0 EST 05/08/2008 12:00 EST Jose Alejandro Castro MD MICROBIOLOGY - GENERAL ORDERABL ES Final Result Performing Organization Address [facility] de Phone Number [facility] [address] [place] [address] * BACTERIAL CULTURE, BLOOD (05/08/2008 11:59 EST) Specimen Description Blood Venous specimen. [facility] Result No growth [facility] Report Status Final [id number] [facility] 05/08/2008 11:5 9 EST 05/08/2008 11:59 EST Jose Alejandro Castro MD MICROBIOLOGY - GENERAL ORDERABL ES Final Result Performing Organization Address [facility] de Phone Number [facility] [address] [place] [address] * ECHOCARDIOGRAM (05/08/2008 10:55 EST) Anatomical Region Laterality Modality Other 05/08/2008 10:5 5 EST Narrative 11/21/2008 8:55 EDT ? ventricular dysfunction Site Location: Date of Appt: Thursday, May 08, 2008, 10:55 AM Pediatric Echocardiogram Report Demographics and Visit Data: : 1990. ??Age: 17y/10m/23d. ??BSA (m 2): 1.78. Weight (kg): 75. ??Patient location: [place] [address]. ??Weight Centile: 67.41. Person requesting test: JOSE [...] Midwall Diastolic Dimension ? 6.18 ? cm Nelson's Name: YASMINE MEJIA MD Date/time of reading: [...] 2): 1.78. Weight (kg): 75. Patient location: [place] [address]. Weight Centile: 67.41. Person requesting test: JOSE ALEJANDRO CASTRO MD Reason for test: ?ventricular dysfunction. Referral diagnosis: [...] 2 LV Midwall Diastolic Dimension 6.18 cm Nelson's Name: ROBERTO PANG,YASMINE LEIVA Date/time of reading: May 09 2008 - 11:30:43 AM Report created at 11:31:25 AM on Friday, May 09, 2008 us Jose Alejandro Castro MD CARDIAC ECHO ORDERABLES Final R esult * BACTERIAL CULTURE/SMEAR, RESPIRATORY (05/08/2008 10:20 EST) Specimen Description Bronchoalveolar Lavage Blind [facility] Gram Smear Result Polys present Alveolar macrophages present present Gram positive cocci present Gram negative bacilli present Results reviewed by supervisory staff [facility] Result 10,000 to 100,000 CFU/ml STAPHYLOCOCCUS COAGULASE POSITIVE (STAPHYLOCOCCUS AUREUS) Less than 10,000 CFU/ml Gram positive cocci [facility] Report Status Final 05/10/2008 [facility] 05/08/2008 10:2 0 EST 05/08/2008 12:07 [...] Final Result Performing Organization Address [facility] de Phone Number [facility] [address] [place] [address] * (ABNORMAL) BLOOD GAS, G3 ISTAT (05/08/2008 8:45 EST) pH, i-STAT 7.16(L) 7.35 - 7.45 [facility] pCO2, i-STAT 43 35 - 45 mmHg [facility] pO2, i-STAT 66(L) 85 - 100 mmHg [facility] TCO2, i-STAT 16 mEq/L FLEMARSHAE R [facility] O2 Saturation 86 % [facility] Base Deficit 13 F[facility]NANCY [facility] Sample Type NOT GIVEN [facility] farm contractor buyer ID [id number] Test Performed by Respiratory [facility] 05/08/2008 8:45 EST 05/08/2008 8:51 EST Jose Alejandro Castro MD CHEMISTRY & BLOOD GAS ORDERABLE S Final Result Performing Organization Address [facility] de Phone Number [facility] [address] [place] [address] * (ABNORMAL) BLOOD GAS, CG4 ISTAT (05/08/2008 8:35 EST) pH, i-STAT 7.22(L) 7.35 - 7.45 [facility] pCO2, i-STAT 32(L) 35 - 45 mmHg [facility] pO2, i-STAT 114(H) 85 - 100 mmHg [facility] TCO2, i-STAT 14 mEq/L [facility] O2 Saturation 98 % TRUE [facility] Lactate, i-STAT 4.8 mmol/L SH[facility] Base Deficit 14 FLEMARSHAE R [facility] Temperature 35.4 C [facility] Sample Type ARTERIAL [facility] farm contractor buyer ID [id number] Test Performed by Respiratory [facility] 05/08/2008 8:35 EST 05/08/2008 8:51 EST us Jose Alejandro Castro MD CHEMISTRY & BLOOD GAS ORDERABLE S Final Result [facility] [address] [place] [address] * ABDOMEN AP 1 VIEW (05/08/2008 8:35 [...] described above. Zain Benavides MD IMG DIAGNOSTIC IMAGING ORDER LYNDSEY Final Result * (ABNORMAL) BLOOD GAS, CG4 ISTAT (05/08/2008 8:28 EST) pH, i-STAT 7.22(L) 7.35 - 7.45 [facility] pCO2, i-STAT 32(L) 35 - 45 mmHg [facility] pO2, i-STAT Results not available 85 - 100 mmHg [facility] TCO2, i-STAT 14 mEq/L [facility] O2 Saturation Results not available % [facility] Lactate, i-STAT Results not available mmol/L [facility] Base Deficit 14 [facility] Temperature 35.4 C [facility] Sample Type ARTERIAL [facility] farm contractor buyer ID [id number] Test Performed by Respiratory [facility] 05/08/2008 8:28 EST 05/08/2008 8:51 EST us Jose Alejandro Castro MD CHEMISTRY & BLOOD GAS ORDERABLE S Final Result Performing Organization Address [facility] de Phone Number [facility] [address] [place] [address] * (ABNORMAL) GLUCOSE, GLUCOMETER (05/08/2008 8:24 EST) Glucose, Fingerstick 173(H) 70 - 100 mg/dl [facility] Featherer [place] [id number] Test Performed by Nursing Services [facility] 05/08/2008 8:24 EST 05/08/2008 21:19 EST Jose Alejandro Castro MD CHEMISTRY & BLOOD GAS ORDERABLE S Final Result Performing Organization Address [facility] Co de Phone Number [facility] [address] [place] [address] * (ABNORMAL) BLOOD GAS, CG4 ISTAT (05/08/2008 6:56 EST) Pathologist [facility] pH, i-STAT 7.12(L) 7.35 - 7.45 [facility] [...] [facility] Sample Type VENOUS [facility] farm contractor buyer ID [id number] Test Performed by Respiratory [facility] 05/08/2008 6:56 EST 05/08/2008 18:53 EST Jose Alejandro Castro MD CHEMISTRY & BLOOD GAS ORDERABLE S Final Result Performing Organization Address [facility] Co de Phone Number [facility] [address] [place] [address] * PTT (05/08/2008 6:50 EST) Pathologist [facility] PTT 33 20 - 35 secs [facility] Comment:Therapeutic Heparin range: 60-100 seconds 05/08/2008 6:50 EST 05/08/2008 7:00 EST Jose Alejandro Castro MD HEMATOLOGY & PF4 ORDERABLES Fin al Result Performing Organization Address [facility] de Phone Number [facility] [address] [place] [address] * (ABNORMAL) PROTIME (05/08/2008 6:50 EST) Pathologist [facility] Pro Time 16.3(H) 12.0 - 15.0 secs [facility] I.N.R. 1.3(H) 0.9 - 1.1 Ratio [facility] Comment: Moderate Intensity Coumadin INR = 2.0-3.0 Adjustments in anticoagulant therapy dose should be based upon the INR and NOT the Pro Time. 05/08/2008 6:50 EST 05/08/2008 7:00 EST Jose Alejandro Castro MD HEMATOLOGY & PF4 ORDERABLES Fin al Result Performing Organization Address [facility] Phone Number [facility] [address] [place] [address] * FIBRINOGEN (05/08/2008 6:50 EST) [facility] Fibrinogen 406 220 - 410 mg/dl [facility] 05/08/2008 6:50 EST 05/08/2008 7:00 EST Jose Alejandro Castro MD HEMATOLOGY & PF4 ORDERABLES Fin al Result Performing Organization Address [facility] Phone Number [facility] [address] [place] [address] * (ABNORMAL) D-DIMER (05/08/2008 6:50 EST) [facility] D-Dimer 1.88(H) <0.50 ug FEU/ml [facility] Comment: The presence of rheumatoid factor (RF) [...] ORDERABLES Fin al Result Performing Organization Address [facility] de Phone Number [facility] [address] [place] [address] * (ABNORMAL) HEMAGRAM AND DIFFERENTIAL (05/08/2008 6:50 EST) [facility] WBC 8.29 4.6 - 11.2 K/cmm [facility] RBC 4.33(L) 4.50 - 5.30 M/cmm [facility] Hemoglobin 11.4(L) 13.0 - 16.0 gm/dl [facility] HCT 33.7(L) 37.0 - 49.0 % [facility] MCV 78 78 - 98 fl [facility] MCH 26.3 pg [facility] MCHC 33.8 gm/dl [facility] PLT 152(L) 156 - 312 K/cmm [facility] RDW-CV 16.6 % [facility] Neutrophils 53.0 % [facility] % Bands 4.0 % [facility] Lymphocytes 35.0 % [facility] Monocytes 5.0 % [facility] % Metamyelocytes 3.0 % [facility] Nucleated RBC's 1 /100 WBC'S [facility] ABS Neutrophils 4.40 K/cmm SHERI ELLE [facility] ABS Bands 0.33 K/cmm [facility] ABS Lymphs 2.90 K/cmm [facility] ABS Monocytes 0.41 K/cmm [facility] ABS Metamyelocytes 0.25 K/cmm [facility] RBC Morphology 1+ Anisocytosis 1+ Poikilocytosis 1+ Microcytes 1+ Ovalocytes [facility] Platelet Morphology 1+ Clumped platelets [facility] Type of Diff: Manual [facility] 05/08/2008 6:50 EST 05/08/2008 7:00 EST us Jose Alejandro Castro MD PACKAGES & DNA PROBE ORDERABLES Final Result [facility] [address] [place] [address] * TROPONIN I (05/08/2008 6:50 EST) [facility] Troponin I pre 2011 1.34 ng/ml [facility] Comment: Reference Range: Normal: ??Less than 0.05 Indeterminate: ??0.05-0.80 Positive: ??Greater than 0.80 05/08/2008 6:50 EST 05/08/2008 13:16 EST us Jose Alejandro Castro MD CHEMISTRY & BLOOD GAS ORDERABLE S Final Result Performing Organization Address City/[facility]/ZIP Co de Phone Number [facility] [address] [place] [address] * LACTIC ACID (05/08/2008 6:50 EST) Lactic Acid 5.0 mmol/L [facility] 05/08/2008 6:50 EST 05/08/2008 13:16 EST Jose Alejandro Castro MD CHEMISTRY & BLOOD GAS ORDERABLE S Final Result Performing Organization Address [facility] Co de Phone Number [facility] [address] [place] [address] * (ABNORMAL) CK MB WITH TOTAL CK (05/08/2008 6:50 EST) CK 140 U/L [facility] MB 9.0(H) 0 - 5.0 ng/ml [facility] CK-MB Index 6.4(H) 0 - 2.5 [facility] 05/08/2008 6:50 EST 05/08/2008 13:16 EST Jose Alejandro Castro MD CHEMISTRY & BLOOD GAS ORDERABLE S Final Result Performing Organization Address City/[facility]/ZIP Co de Phone Number [facility] [address] [place] [address] * (ABNORMAL) ALT (05/08/2008 6:50 EST) ALT 55(H) 0 - 45 U/L [facility] 05/08/2008 6:50 EST 05/08/2008 13:16 EST us Jose Alejandro Castro MD CHEMISTRY & BLOOD GAS ORDERABLE S Final Result [facility] [address] [place] [address] * (ABNORMAL) AST (05/08/2008 6:50 EST) AST 51(H) 15 - 46 U/L [facility] 05/08/2008 6:50 EST 05/08/2008 13:16 EST Jose Alejandro Castro MD CHEMISTRY & BLOOD GAS ORDERABLE S Final Result Performing Organization Address [facility] de Phone Number [facility] [address] [place] [address] * (ABNORMAL) GGT (05/08/2008 6:50 EST) GGT 42(H) 10 - 35 U/L [facility] 05/08/2008 6:50 EST 05/08/2008 13:16 EST us Jose Alejandro Castro MD CHEMISTRY & BLOOD GAS ORDERABLE S Final Result Performing Organization Address [facility] de Phone Number [facility] [address] [place] [address] * (ABNORMAL) PHOSPHORUS (05/08/2008 6:50 EST) Phosphorus 1.6(L) 2.7 - 4.7 mg/dl [facility] 05/08/2008 6:50 EST 05/08/2008 13:16 EST us Jose Alejandro Castro MD CHEMISTRY & BLOOD GAS ORDERABLE S Final Result Performing Organization Address [facility] de Phone Number [facility] [address] [place] [address] * MAGNESIUM (05/08/2008 6:50 EST) Magnesium 1.7 1.7 - 2.8 mg/dl [facility] 05/08/2008 6:50 EST 05/08/2008 13:16 EST us Jose Alejandro Castro MD CHEMISTRY & BLOOD GAS ORDERABLE S Final Result Performing Organization Address [facility]/ZIP Co de Phone Number [facility] [address] [place] [address] * (ABNORMAL) GLUCOSE, SERUM (05/08/2008 6:50 EST) Glucose, Serum 66(L) 70 - 100 mg/dl [facility] 05/08/2008 6:50 EST 05/08/2008 13:16 EST us Jose Alejandro Castro MD CHEMISTRY & BLOOD GAS ORDERABLE S Final Result Performing Organization Address [facility] Co de Phone Number [facility] [address] [place] [address] * (ABNORMAL) CREATININE (05/08/2008 6:50 EST) Creatinine 2.10(H) 0.6 - 1.2 mg/dl [facility] GFR, Calculated Age <18 ml/min/1.7 3m2 [facility] 05/08/2008 6:50 EST 05/08/2008 13:16 EST Jose Alejandro Castro MD CHEMISTRY & BLOOD GAS ORDERABLE S Final Result Performing Organization Address [facility] Co de Phone Number [facility] [address] [place] [address] * (ABNORMAL) BUN (05/08/2008 6:50 EST) BUN 25(H) 8 - 21 mg/dl [facility] 05/08/2008 6:50 EST 05/08/2008 13:16 EST us Jose Alejandro Castro MD CHEMISTRY & BLOOD GAS ORDERABLE S Final Result Performing Organization Address City/[facility]/ZIP Co de Phone Number [facility] [address] [place] [address] * (ABNORMAL) ELECTROLYTES (05/08/2008 6:50 EST) Sodium [...] ORDERABLE S Final Result Performing Organization Address [facility] Co de Phone Number [facility] [address] [place] [address] * (ABNORMAL) DELTA CREATININE (05/08/2008 6:50 EST) Pathologist [facility] Creatinine Elevated initial creatinine or critical change in creatinine value.(AA) [facility] 05/08/2008 6:50 EST 05/08/2008 13:16 EST Jose Alejandro Castro MD CHEMISTRY & BLOOD GAS ORDERABLE S Final Result Performing Organization Address [facility] de Phone Number [facility] [address] [place] [address] * GLUCOSE, GLUCOMETER (05/08/2008 6:31 EST) Pathologist [facility] Glucose, Fingerstick 84 70 - 100 mg/dl [facility] [place] Fe[place]herer ID [id number] Test Performed by Nursing Services [facility] 05/08/2008 6:31 EST 05/08/2008 21:19 EST us Jose Alejandro Castro MD CHEMISTRY & BLOOD GAS ORDERABLE S Final Result Performing Organization Address [facility] de Phone Number [facility] [address] [place] [address] documented in this encounter Visit Diagnoses Not on filedocumented in this encounter
--- OUTSIDE RECORDS SUMMARY | 2024-07-22 13:45 | XMS_ITS | Encounter Summary ---
Author Organization [facility] Address [address] [place] [address] Care Team Providers Care Superintendent Warehouse Name Role Phone Unavailable Primary Care Provider Unavailabl e Encounter Details Date Type Department Care Team (Late st Contact Info) Description 02/09/2008 2:41 EDT - 02/12/2008 11:59 EDT Hospital Encounter [facility] [address] [place] [address] Jodi Christie MD [address] [facility] [address] [place] [phone] Yossi Murphy MD 111 [facility], [address] [place] [address] Discharge Disposition: Another Health Care Institution Not [...] 01/13/2009 1403 EDT HISS DISCHARGE SUMMARY ADDRESS: [address] [place] [address] PHONE: [phone] ATTENDING PHYSICIAN: JODI CHRISTIE MD ADDRESS: [address] [address] PHONE: [phone] REFERRING PHYSICIAN: YAN GOEL MD ADDRESS: [address] [place] [address] PHONE: [phone] ADMISSION DATE: 02/09/08 SERVICE: PED. MEDICINE TRANSFER [...] STOPPED: NONE HERBAL REMEDIES, NUTRITIONAL SUPPLEMENTS, AND AVHC-LHJ-[id number] MEDICATIONS that have not been prescribed by a physician may have significant adverse side effect or may interfere with the medications that have been prescribed for you. If you are taking herbal remedies, nutritional supplements, or orje-nlv-lwqavdr medications you are strongly encouraged to discontinue [...] a history of panhypopituitarism who came to [facility] ER on 02/09/08 due to altered mental status. One week prior the patient had been seen at the [facility] ER following some seizure like activity [...] symptoms on 02/08 he was taken to [facility] where he had a Temperature of 31, [...] continued to express interest in transfer to [place] and transport was arranged. He was transferred to [facility] on 02/12/08 by [facility]. Recommendations from Endocrinology 02/11 were to decrease [...] JESSIKA RIVERA MD P - ZOHDocument ID: [id number] documented in this encounter Discharge Disposition Disposition [...] panhypopituitarism, who presentedon February 09, 2008, to [facility] ER with severe hyponatremia and mental status [...] DISPOSITION Miguel Angel will be transferred to [place] [address] today. His family wishes to seek transfer to [facility], and those investigations are occurring at the time of transfer. CONDITION AT DISCHARGE Stable. Supervising Physician Signed by Otilio Castro MD 02/09/2008 15:43 Wilder Bejarano MD Otilio Castro MD - Wilder Bejarano MD P - CSS Job ID: [id number] Document ID: [id number] cc: MD Otilio Alcantar MD Daniel W [...] the parents have insisted on transfer to [facility]; arrival of transport is expected imminently. I would recommend that he continue on a relatively modest dose of [id number] mg b.i.d., in part because of his [...] Cheng MD P - SS Job ID: [id number] Document ID: [id number] cc: MD Yan Walker MD Christa M Zehle, MD * Lc Cheng MD - 02/11/2008 0000 EDT INPATIENT CONSULTATION Admission Date: 02/09/2008 Date of consultation: 02/11/2008 This is an inpatient pediatric neurologic follow-up consultation/reconsultation on this 24-ehoo-wzsmodl left hemiparesis, panhypopituitarism, craniopharyngioma resection, new onset [...] Lc Cheng MD P - Job ID: [id number] Document ID: [id number] cc: MD Yan Walker MD Christa M [...] treatment for that including CT at a [facility] hospital, was started on phenytoin. Since that time, he has had some decreased responsivenessand balance (phenytoin 100 mg t.i.d.). He came in because of mental status change and has been hospitalized here for the last three days and had correction of what was found to be hyponatremia and methodist of his usual DDAVP regime along with [...] his step-mother. His step-mother is his principle associate faculty. There is no family history of epilepsy. [...] Cheng MD A - SADE Job ID: [id number] Document ID: [id number] cc: MD Rui Walker III, MD Daniel W Larrow, MD Christa M Zehle, MD documented in this encounter Plan of Treatment Upcoming Encounters Date Type Department Care Team (Late st Contact Info) Description 10/01/2024 13:40 EDT Office Visit [facility] Endocrinology - [address] [id number] Wilder Zaidi, [address] [place] [address] documented as of this encounter [...] Chloride 119(H) 96 - 110 mEq/L [facility] Comment: Slight hemolysis Heparinized plasma. CO2 21(L) 24 - 32 mEq/L [facility] Comment: Slight hemolysis Heparinized plasma. 02/12/2008 12:0 0 EDT 02/12/2008 12:22 EDT us Jodi Christie MD CHEMISTRY & BLOOD GAS ORDERABLE S Final Result [facility] [address] [place] [address] * (ABNORMAL) BLOOD GAS, G3 ISTAT (02/12/2008 [...] LAB Sample Type NOT GIVEN [facility] [place] [id number] Test performed by Chemistry [facility] 02/12/2008 10:4 5 EDT 02/12/2008 10:50 EDT us Jodi Christie MD CHEMISTRY & BLOOD GAS ORDERABLE S Final Result Performing Organization Address [facility] de Phone Number [facility] [address] [place] [address] * (ABNORMAL) GLUCOSE, GLUCOMETER (02/12/2008 10:05 EDT) Glucose, Fingerstick 125(H) 70 - 100 mg/dl [facility] Net Making Supervisor ID [id number] Test Performed by Nursing Services [facility] 02/12/2008 10:0 5 EDT 02/13/2008 3:40 EDT us Jodi Christie MD CHEMISTRY & BLOOD GAS ORDERABLE S Final Result Performing Organization Address [facility] de Phone Number [facility] [address] [place] [address] * (ABNORMAL) BLOOD GAS, G3 ISTAT (02/12/2008 [...] LAB Sample Type NOT GIVEN [facility] firefighter [place] ID [id number] Test performed by Chemistry [facility] 02/12/2008 8:58 EDT 02/12/2008 9:03 EDT us Jodi Christie MD CHEMISTRY & BLOOD GAS ORDERABLE S Final Result Performing Organization Address [facility] de Phone Number [facility] [address] [place] [address] * (ABNORMAL) GLUCOSE, GLUCOMETER (02/12/2008 8:51 EDT) Glucose, Fingerstick 130(H) 70 - 100 mg/dl [facility] Net Making Supervisor ID [id number] Test Performed by Nursing Services [facility] 02/12/2008 8:51 EDT 02/13/2008 3:29 EDT us Jodi Christie MD CHEMISTRY & BLOOD GAS ORDERABLE S Final Result Performing Organization Address [facility]/ZIP Co de Phone Number [facility] [address] [place] [address] * (ABNORMAL) PHOSPHORUS (02/12/2008 8:35 EDT) Phosphorus 5.6(H) 2.7 - 4.7 mg/dl [facility] Comment: Results may be affected due to hemolysis. Slight hemolysis 02/12/2008 8:35 EDT 02/12/2008 8:48 EDT us Jodi Christie MD CHEMISTRY & BLOOD GAS ORDERABLE S Final Result Performing Organization Address [facility] Co de Phone Number [facility] [address] [place] [address] * MAGNESIUM (02/12/2008 8:35 EDT) Magnesium 2.1 1.7 - 2.8 mg/dl [facility] Comment: Results may be affected due to hemolysis. Slight hemolysis 02/12/2008 8:35 EDT 02/12/2008 8:48 EDT Jodi Christie MD CHEMISTRY & BLOOD GAS ORDERABLE S Final Result Performing Organization Address [facility] Co de Phone Number [facility] [address] [place] [address] * CALCIUM (02/12/2008 8:35 EDT) Calcium 9.2 8.5 - 10.5 mg/dl [facility] Comment:Slight hemolysis Calculated Calcium 8.8 8.5 - 10.5 mg/dl [facility] Comment: Results may be affected due to hemolysis. Slight hemolysis 02/12/2008 8:35 EDT 02/12/2008 8:48 EDT Jodi Christie MD CHEMISTRY & BLOOD GAS ORDERABLE S Final Result Performing Organization Address [facility] de Phone Number [facility] [address] [place] [address] * (ABNORMAL) GLUCOSE, GLUCOMETER (02/12/2008 8:17 EDT) Glucose, Fingerstick 53(L) 70 - 100 mg/dl [facility] Net Making Supervisor ID [id number] Test Performed by Nursing Services [facility] 02/12/2008 8:17 EDT 02/13/2008 3:29 EDT Jodi Christie MD CHEMISTRY & BLOOD GAS ORDERABLE S Final Result Performing Organization Address [facility] de Phone Number [facility] [address] [place] [address] * CREATININE (02/12/2008 5:55 EDT) Creatinine 1.10 0.6 - 1.2 mg/dl [facility] Comment:Heparinized plasma. GFR, Calculated Age <18 Heparinize d plasma. ml/min/1.7 3m2 [facility] 02/12/2008 5:55 EDT 02/12/2008 6:21 EDT Jodi Christie MD CHEMISTRY & BLOOD GAS ORDERABLE S Final Result Performing Organization Address [facility] de Phone Number [facility] [address] [place] [address] * BUN (02/12/2008 5:55 EDT) BUN 15 8 - 21 mg/dl [facility] Comment:Heparinized plasma. 02/12/2008 5:55 EDT 02/12/2008 6:21 EDT us Jodi Christie MD CHEMISTRY & BLOOD GAS ORDERABLE S Final Result Performing Organization Address [facility] de Phone Number [facility] [address] [place] [address] * TESTS ADDED BY PHONE (02/12/2008 5:55 EDT) Tests to be added [facility] Who Called [facility] Location Code B5 [facility] 02/12/2008 5:55 EDT 02/12/2008 6:21 EDT us Jodi Christie MD CHEMISTRY & BLOOD GAS ORDERABLE S Final Result Performing Organization Address [facility] de Phone Number [facility] [address] [place] [address] * (ABNORMAL) ELECTROLYTES (02/12/2008 5:55 EDT) Sodium 151(H) 136 - 145 mEq/L [facility] Comment:Heparinized plasma. Potassium 3.4(L) 3.5 - 5.0 mEq/L [facility] Comment:Heparinized plasma. Chloride 110 96 - 110 mEq/L [facility] Comment:Heparinized plasma. CO2 27 24 - 32 mEq/L [facility] Comment:Heparinized plasma. 02/12/2008 5:55 EDT 02/12/2008 6:21 EDT us Jodi Christie MD CHEMISTRY & BLOOD GAS ORDERABLE S Final Result Performing Organization Address [facility] de Phone Number [facility] [address] [place] [address] * CORTISOL (02/12/2008 2:05 EDT) Cortisol Wrong tube/speci men type ug/dl [facility] Comment:CANNOT BE RUN ON GRE EN MICROTAINER 02/12/2008 2:05 EDT 02/12/2008 2:17 EDT us Jodi Christie MD CHEMISTRY & BLOOD GAS ORDERABLE S Final Result Performing Organization Address [facility] de Phone Number [facility] [address] [place] [address] * TESTS ADDED BY PHONE (02/12/2008 2:05 EDT) Tests to be added [facility] Who Called [facility] Location Code B5 [facility] 02/12/2008 2:05 EDT 02/12/2008 2:17 EDT us Jodi Christie MD CHEMISTRY & BLOOD GAS ORDERABLE S Final Result Performing Organization Address [facility] Phone Number [facility] [address] [place] [address] * (ABNORMAL) ELECTROLYTES (02/12/2008 2:05 EDT) Sodium 146(H) 136 - 145 mEq/L [facility] Potassium 3.9 3.5 - 5.0 mEq/L [facility] Chloride 108 96 - 110 mEq/L [facility] CO2 27 24 - 32 mEq/L [facility] 02/12/2008 2:05 EDT 02/12/2008 2:17 EDT us Jodi Christie MD CHEMISTRY & BLOOD GAS ORDERABLE S Final Result Performing Organization Address [facility] de Phone Number [facility] [address] [place] [address] * (ABNORMAL) BLOOD GAS, G3 ISTAT (02/11/2008 [...] LAB Sample Type NOT GIVEN [facility] firefighter type one ID [id number] Test performed by Chemistry [facility] 02/11/2008 22:1 5 EDT 02/11/2008 22:20 EDT us Jodi Christie MD CHEMISTRY & BLOOD GAS ORDERABLE S Final Result Performing Organization Address [facility] de Phone Number [facility] [address] [place] [address] * (ABNORMAL) ELECTROLYTES (02/11/2008 21:50 EDT) Sodium 149(H) 136 - 145 mEq/L [facility] Potassium 4.4 3.5 - 5.0 mEq/L [facility] Chloride 108 96 - 110 mEq/L [facility] CO2 29 24 - 32 mEq/L [facility] 02/11/2008 21:5 0 EDT 02/11/2008 22:07 EDT us Jodi Christie MD CHEMISTRY & BLOOD GAS ORDERABLE S Final Result Performing Organization Address [facility] de Phone Number [facility] [address] [place] [address] * MR HEAD W/WO CONTRAST (02/11/2008 20:14 [...] status-pt with h/o hyponatremia and seizures Technique: Torito RI of the brain was performed with [...] ORDERABL ES Final Result Performing Organization Address [facility] de Phone Number [facility] [address] [place] [address] * UA REFLEX (02/11/2008 19:10 EDT) UA Billing Microscopic not indicated. [facility] 02/11/2008 19:1 0 EDT 02/11/2008 19:21 EDT Jodi Christie MD URINALYSIS ORDERABLES Final Res ult Performing Organization Address [facility] de Phone Number [facility] [address] [place] [address] * (ABNORMAL) URINALYSIS, CHEMICAL (02/11/2008 19:10 EDT) Color, UA Straw [facility] Clarity, UA Clear [facility] Glucose, UA Norm NORM [facility] Bilirubin, UA Neg NEG [facility] Ketones, UA Neg NEG [facility] Specific [place], Urine <1.005(L) 1.005 - 1.02 [facility] Blood, UA Neg NEG [facility] pH, UA 6.0 5.0 - 9.0 [facility] Protein, UA Neg NEG [facility] Urobilinogen, UA Norm NORM mg/dL [facility] Nitrite, UA Neg NEG [facility] Leuk Esterase Neg NEG [facility] 02/11/2008 19:1 0 EDT 02/11/2008 19:21 EDT us Jodi Christie MD URINALYSIS ORDERABLES Final Res ult Performing Organization Address [facility] de Phone Number [facility] [address] [place] [address] * (ABNORMAL) BLOOD GAS, G3 ISTAT (02/11/2008 [...] LAB Sample Type NOT GIVEN [facility] firefighter type one ID [id number] Test performed by Chemistry [facility] 02/11/2008 18:4 5 EDT 02/11/2008 18:50 EDT us Jodi Christie MD CHEMISTRY & BLOOD GAS ORDERABLE S Final Result Performing Organization Address [facility] de Phone Number [facility] [address] [place] [address] * CT HEAD WO CONTRAST (02/11/2008 18:44 [...] agree with the findings. Mariana Mast MD IMG CT ORDERABLES Final Result * POTASSIUM (02/11/2008 18:12 EDT) Potassium 4.4 3.5 - 5.0 mEq/L [facility] 02/11/2008 18:1 2 EDT 02/11/2008 18:40 EDT us Jodi Christie MD CHEMISTRY & BLOOD GAS ORDERABLE S Final Result Performing Organization Address [facility] de Phone Number [facility] [address] [place] [address] * CO2 (02/11/2008 18:12 EDT) CO2 25 24 - 32 mEq/L [facility] 02/11/2008 18:1 2 EDT 02/11/2008 18:40 EDT Jodi Christie MD CHEMISTRY & BLOOD GAS ORDERABLE S Final Result Performing Organization Address [facility] de Phone Number [facility] [address] [place] [address] * CHLORIDE (02/11/2008 18:12 EDT) Chloride 107 96 - 110 mEq/L [facility] 02/11/2008 18:1 2 EDT 02/11/2008 18:40 EDT Jodi Christie MD CHEMISTRY & BLOOD GAS ORDERABLE S Final Result Performing Organization Address [facility] de Phone Number [facility] [address] [place] [address] * (ABNORMAL) SODIUM (02/11/2008 18:12 EDT) Sodium 148(H) 136 - 145 mEq/L [facility] 02/11/2008 18:1 2 EDT 02/11/2008 18:40 EDT Jodi Christie MD CHEMISTRY & BLOOD GAS ORDERABLE S Final Result Performing Organization Address [facility]/ZIP Co de Phone Number [facility] [address] [place] [address] * CREATININE (02/11/2008 18:12 EDT) Pathologist [facility] Creatinine 0.90 0.6 - 1.2 mg/dl [facility] GFR, Calculated Age <18 ml/min/1.7 3m2 [facility] 02/11/2008 18:1 2 EDT 02/11/2008 18:40 EDT us Jodi Christie MD CHEMISTRY & BLOOD GAS ORDERABLE S Final Result Performing Organization Address [facility] de Phone Number [facility] [address] [place] [address] * BUN (02/11/2008 18:12 EDT) [facility] BUN 13 8 - 21 mg/dl [facility] 02/11/2008 18:1 2 EDT 02/11/2008 18:40 EDT us Jodi Christie MD CHEMISTRY & BLOOD GAS ORDERABLE S Final Result Performing Organization Address [facility] de Phone Number [facility] [address] [place] [address] * TESTS ADDED BY PHONE (02/11/2008 18:12 EDT) [facility] Tests to be added LYT STAT [facility] Who Called DR CATHY [facility] Location Code B5 [facility] 02/11/2008 18:1 2 EDT 02/11/2008 18:40 EDT us Jodi Christie MD CHEMISTRY & BLOOD GAS ORDERABLE S Final Result Performing Organization Address [facility] Co de Phone Number [facility] [address] [place] [address] * (ABNORMAL) AMMONIA (02/11/2008 18:12 EDT) Ammonia 40(H) 9 - 33 umol/L [facility] 02/11/2008 18:1 2 EDT 02/11/2008 18:40 EDT Jodi Christie MD CHEMISTRY & BLOOD GAS ORDERABLE S Final Result Performing Organization Address [facility] de Phone Number [facility] [address] [place] [address] * DIFFERENTIAL (02/11/2008 15:28 EDT) Neutrophils 55.0 [...] ORDERABLES Fin al Result Performing Organization Address [facility] Co de Phone Number [facility] [address] [place] [address] * TOTAL & DIRECT BILIRUBIN (02/11/2008 15:28 EDT) Conjugated Bilirubin 0.0 0.0 - 0.3 mg/dl [facility] Unconjugated Bilirubin 0.3 0.1 - 1.1 mg/dl [facility] Bilirubin, Total <0.5 0.0 - 1.4 mg/dl [facility] 02/11/2008 15:2 8 EDT 02/11/2008 15:39 EDT Jodi Christie MD CHEMISTRY & BLOOD GAS ORDERABLE S Final Result [facility] [address] [place] [address] * AST (02/11/2008 15:28 EDT) AST 42 15 - 46 U/L [facility] 02/11/2008 15:2 8 EDT 02/11/2008 15:39 EDT us Jodi Christie MD CHEMISTRY & BLOOD GAS ORDERABLE S Final Result Performing Organization Address City/[facility]/ZIP Co de Phone Number [facility] [address] [place] [address] * ALT (02/11/2008 15:28 EDT) ALT <11 0 - 45 U/L [facility] 02/11/2008 15:2 8 EDT 02/11/2008 15:39 EDT us Jodi Christie MD CHEMISTRY & BLOOD GAS ORDERABLE S Final Result Performing Organization Address [facility]/ZIP Co de Phone Number [facility] [address] [place] [address] * ALKALINE PHOSPHATASE (02/11/2008 15:28 EDT) Alkaline Phosphatase 179 65 - 260 U/L [facility] 02/11/2008 15:2 8 EDT 02/11/2008 15:39 EDT us Jodi Christie MD CHEMISTRY & BLOOD GAS ORDERABLE S Final Result [facility] [address] [place] [address] * TESTS ADDED BY PHONE (02/11/2008 15:28 EDT) Tests to be added STAT ALT,AST,TDBI L,ALKP [facility] Who Called DR CATHY [facility] Location Code B5 [facility] 02/11/2008 15:2 8 EDT 02/11/2008 15:39 EDT us Jodi Christie MD CHEMISTRY & BLOOD GAS ORDERABLE S Final Result Performing Organization Address [facility] Co de Phone Number [facility] [address] [place] [address] * (ABNORMAL) HEMAGRAM (02/11/2008 15:28 EDT) WBC 5.57 4.6 - 11.2 K/cmm [facility] RBC 5.83(H) 4.50 - 5.30 M/cmm [facility] Hemoglobin 15.2 13.0 - 16.0 gm/dl [facility] HCT 44.7 37.0 - 49.0 % [facility] MCV 77(L) 78 - 98 fl [facility] MCH 26.0 pg [facility] MCHC 33.9 gm/dl [facility] PLT 183 156 - 312 K/cmm [facility] RDW-CV 17.0 % [facility] 02/11/2008 15:2 8 EDT 02/11/2008 15:39 EDT us Jodi Christie MD HEMATOLOGY & PF4 ORDERABLES Fin al Result Performing Organization Address [facility] de Phone Number [facility] [address] [place] [address] * (ABNORMAL) PHOSPHORUS (02/11/2008 15:28 EDT) Phosphorus 4.9(H) 2.7 - 4.7 mg/dl [facility] 02/11/2008 15:2 8 EDT 02/11/2008 15:39 EDT us Jodi Christie MD CHEMISTRY & BLOOD GAS ORDERABLE S Final Result Performing Organization Address [facility] Co de Phone Number [facility] [address] [place] [address] * MAGNESIUM (02/11/2008 15:28 EDT) Magnesium 2.0 1.7 - 2.8 mg/dl [facility] 02/11/2008 15:2 8 EDT 02/11/2008 15:39 EDT Jodi Christie MD CHEMISTRY & BLOOD GAS ORDERABLE S Final Result Performing Organization Address [facility] de Phone Number [facility] [address] [place] [address] * CALCIUM (02/11/2008 15:28 EDT) Calcium 9.1 8.5 - 10.5 mg/dl [facility] Calculated Calcium 9.0 8.5 - 10.5 mg/dl [facility] 02/11/2008 15:2 8 EDT 02/11/2008 15:39 EDT Jodi Christie MD CHEMISTRY & BLOOD GAS ORDERABLE S Final Result Performing Organization Address [facility] de Phone Number [facility] [address] [place] [address] * (ABNORMAL) ELECTROLYTES (02/11/2008 15:28 EDT) Sodium 148(H) 136 - 145 mEq/L [facility] Potassium 4.4 3.5 - 5.0 mEq/L [facility] Chloride 111(H) 96 - 110 mEq/L [facility] CO2 21(L) 24 - 32 mEq/L [facility] 02/11/2008 15:2 8 EDT 02/11/2008 15:39 EDT Jodi Christie MD CHEMISTRY & BLOOD GAS ORDERABLE S Final Result Performing Organization Address [facility] de Phone Number [facility] [address] [place] [address] * GLUCOSE, GLUCOMETER (02/11/2008 15:22 EDT) Glucose, Fingerstick 81 70 - 100 mg/dl [facility] Net Making Supervisor ID [id number] Test Performed by Nursing Services [facility] 02/11/2008 15:2 2 EDT 02/12/2008 1:19 EDT Jodi Christie MD CHEMISTRY & BLOOD GAS ORDERABLE S Final Result Performing Organization Address [facility] Co de Phone Number [facility] [address] [place] [address] * ELECTROLYTES (02/11/2008 6:00 EDT) Sodium 142 136 - 145 mEq/L [facility] Potassium 4.1 3.5 - 5.0 mEq/L [facility] Chloride 103 96 - 110 mEq/L [facility] CO2 26 24 - 32 mEq/L [facility] 02/11/2008 6:00 EDT 02/11/2008 6:15 EDT us Jodi Christie MD CHEMISTRY & BLOOD GAS ORDERABLE S Final Result Performing Organization Address [facility] de Phone Number [facility] [address] [place] [address] * ELECTROLYTES (02/11/2008 2:05 EDT) Sodium 140 136 - 145 mEq/L [facility] Potassium 4.1 3.5 - 5.0 mEq/L [facility] Chloride 104 96 - 110 mEq/L [facility] CO2 24 24 - 32 mEq/L [facility] 02/11/2008 2:05 EDT 02/11/2008 2:32 EDT Jodi Christie MD CHEMISTRY & BLOOD GAS ORDERABLE S Final Result Performing Organization Address [facility] de Phone Number [facility] [address] [place] [address] * (ABNORMAL) ELECTROLYTES (02/10/2008 21:55 EDT) Sodium 142 136 - 145 mEq/L [facility] Potassium 3.9 3.5 - 5.0 mEq/L [facility] Chloride 110 96 - 110 mEq/L [facility] CO2 22(L) 24 - 32 mEq/L [facility] 02/10/2008 21:5 5 EDT 02/10/2008 22:15 EDT Jodi Christie MD CHEMISTRY & BLOOD GAS ORDERABLE S Final Result Performing Organization Address [facility] de Phone Number [facility] [address] [place] [address] * ELECTROLYTES (02/10/2008 18:15 EDT) Sodium 139 136 - 145 mEq/L [facility] Potassium 4.1 3.5 - 5.0 mEq/L [facility] Chloride 103 96 - 110 mEq/L [facility] CO2 25 24 - 32 mEq/L [facility] 02/10/2008 18:1 5 EDT 02/10/2008 19:10 EDT Jodi Christie MD CHEMISTRY & BLOOD GAS ORDERABLE S Final Result Performing Organization Address [facility] de Phone Number [facility] [address] [place] [address] * ELECTROLYTES (02/10/2008 14:00 EDT) Sodium 136 136 - 145 mEq/L [facility] Potassium 3.6 3.5 - 5.0 mEq/L [facility] Chloride 100 96 - 110 mEq/L [facility] CO2 26 24 - 32 mEq/L [facility] 02/10/2008 14:0 0 EDT 02/10/2008 14:33 EDT Jodi Christie MD CHEMISTRY & BLOOD GAS ORDERABLE S Final Result Performing Organization Address [facility] de Phone Number [facility] [address] [place] [address] * (ABNORMAL) ELECTROLYTES (02/10/2008 10:12 EDT) Sodium [...] ORDERABLE S Final Result Performing Organization Address [facility] Co de Phone Number [facility] [address] [place] [address] * GLUCOSE, GLUCOMETER (02/10/2008 8:13 EDT) Glucose, Fingerstick 74 70 - 100 mg/dl [facility] Net [employer] Supervisor ID [id number] Test Performed by Nursing Services [facility] 02/10/2008 8:13 EDT 02/10/2008 9:15 EDT Jodi Christie MD CHEMISTRY & BLOOD GAS ORDERABLE S Final Result Performing Organization Address [facility] Co de Phone Number [facility] [address] [place] [address] * ELECTROLYTES (02/10/2008 8:05 EDT) Sodium Marked [...] ORDERABLE S Final Result Performing Organization Address [facility] de Phone Number [facility] [address] [place] [address] * (ABNORMAL) ELECTROLYTES (02/10/2008 4:00 EDT) Sodium 130(L) 136 - 145 mEq/L [facility] Potassium 3.7 3.5 - 5.0 mEq/L [facility] Chloride 95(L) 96 - 110 mEq/L [facility] CO2 23(L) 24 - 32 mEq/L [facility] 02/10/2008 4:00 EDT 02/10/2008 4:29 EDT us Jodi Christie MD CHEMISTRY & BLOOD GAS ORDERABLE S Final Result Performing Organization Address [facility] de Phone Number [facility] [address] [place] [address] * (ABNORMAL) ELECTROLYTES (02/09/2008 23:15 EDT) Sodium 129(L) 136 - 145 mEq/L [facility] Potassium 3.6 3.5 - 5.0 mEq/L [facility] Chloride 96 96 - 110 mEq/L [facility] CO2 22(L) 24 - 32 mEq/L [facility] 02/09/2008 23:1 5 EDT 02/09/2008 23:41 EDT us Jodi Christie MD CHEMISTRY & BLOOD GAS ORDERABLE S Final Result Performing Organization Address [facility] de Phone Number [facility] [address] [place] [address] * BACTERIAL CULTURE, URINE (02/09/2008 21:15 EDT) Specimen Description Urine [facility] Result No growth [facility] Report Status Final [id number] [facility] 02/09/2008 21:1 5 EDT 02/09/2008 22:47 EDT Jodi Christie MD MICROBIOLOGY - GENERAL ORDERABL ES Final Result Performing Organization Address [facility] de Phone Number [facility] [address] [place] [address] * CULTURE IF UA POSITIVE (02/09/2008 21:15 EDT) Culture if Indicated Culture indicated by urinalysis results. [facility] 02/09/2008 21:1 5 EDT 02/09/2008 22:00 EDT us Jodi Christie MD MICROBIOLOGY - GENERAL ORDERABL ES Final Result Performing Organization Address [facility] de Phone Number [facility] [address] [place] [address] * (ABNORMAL) ELECTROLYTES (02/09/2008 21:15 EDT) Sodium 127(L) 136 - 145 mEq/L [facility] Potassium 4.1 3.5 - 5.0 mEq/L [facility] Chloride 89(L) 96 - 110 mEq/L [facility] CO2 25 24 - 32 mEq/L [facility] 02/09/2008 21:1 5 EDT 02/09/2008 21:57 EDT Jodi Christie MD CHEMISTRY & BLOOD GAS ORDERABLE S Final Result Performing Organization Address [facility] de Phone Number [facility] [address] [place] [address] * (ABNORMAL) UA WITH MICROSCOPIC (02/09/2008 21:15 EDT) Color, UA Straw [facility] Clarity, UA Hazy [facility] Glucose, UA 1+(A) NORM [facility] Bilirubin, UA Neg NEG [facility] Ketones, UA Neg NEG [facility] Specific [place], Urine <1.005(L) 1.005 - 1.02 [facility] [...] /HPF [facility] Crystals, UA Many /[facility] Comment:Amorphous phosphates Hyaline Casts, UA None seen /LPF [facility] Comment Microscopic results are unreliable on urines unrefrig >2hrs or refrig >8hrs. [facility] 02/09/2008 21:1 5 EDT 02/09/2008 22:00 EDT us Jodi Christie MD URINALYSIS ORDERABLES Final Res ult Performing Organization Address [facility] de Phone Number [facility] [address] [place] [address] * (ABNORMAL) ELECTROLYTES (02/09/2008 18:05 EDT) Sodium [...] ORDERABLE S Final Result Performing Organization Address [facility] Co de Phone Number [facility] [address] [place] [address] * GLUCOSE, GLUCOMETER (02/09/2008 17:59 EDT) Glucose, Fingerstick 98 70 - 100 mg/dl [facility] Net [employer] Supervisor ID [id number] Test Performed by Nursing Services [facility] 02/09/2008 17:5 9 EDT 02/09/2008 23:28 EDT us Jodi Christie MD CHEMISTRY & BLOOD GAS ORDERABLE S Final Result Performing Organization Address [facility] de Phone Number [facility] [address] [place] [address] * (ABNORMAL) ELECTROLYTES (02/09/2008 16:10 EDT) Sodium 120(LL) 136 - 145 mEq/L [facility] Comment:Sample retested, res ult confirmed Potassium 3.9 3.5 - 5.0 mEq/L [facility] Chloride 86(L) 96 - 110 mEq/L [facility] CO2 26 24 - 32 mEq/L [facility] 02/09/2008 16:1 0 EDT 02/09/2008 16:10 EDT us Kris Izquierdo MD CHEMISTRY & BLOOD GAS ORDERABLE S Final Result Performing Organization Address [facility] de Phone Number [facility] [address] [place] [address] * (ABNORMAL) GLUCOSE, GLUCOMETER (02/09/2008 16:06 EDT) Glucose, Fingerstick 105(H) 70 - 100 mg/dl [facility] Net Making Supervisor ID [id number] Test Performed by Nursing Services [facility] 02/09/2008 16:0 6 EDT 02/09/2008 23:28 EDT us Jodi Christie MD CHEMISTRY & BLOOD GAS ORDERABLE S Final Result Performing Organization Address [facility] de Phone Number [facility] [address] [place] [address] * (ABNORMAL) ELECTROLYTES (02/09/2008 14:09 EDT) Sodium 121(LL) 136 - 145 mEq/L [facility] Comment:Sample retested, res ult confirmed Potassium 4.6 3.5 - 5.0 mEq/L [facility] Chloride 85(L) 96 - 110 mEq/L [facility] CO2 25 24 - 32 mEq/L [facility] 02/09/2008 14:0 9 EDT 02/09/2008 14:09 EDT us Kris Izquierdo MD CHEMISTRY & BLOOD GAS ORDERABLE S Final Result Performing Organization Address [facility] Co de Phone Number [facility] [address] [place] [address] * (ABNORMAL) GLUCOSE, GLUCOMETER (02/09/2008 14:01 EDT) Glucose, Fingerstick 104(H) 70 - 100 mg/dl [facility] Net Making Supervisor ID [id number] Test Performed by Nursing Services [facility] 02/09/2008 14:0 1 EDT 02/09/2008 23:28 EDT us Jodi Christie MD CHEMISTRY & BLOOD GAS ORDERABLE S Final Result Performing Organization Address [facility] Co de Phone Number [facility] [address] [place] [address] * OSMOLALITY, URINE (02/09/2008 13:37 EDT) Osmolality, Ur 406 MOS/KG [facility] 02/09/2008 13:3 7 EDT 02/09/2008 13:37 EDT us Kris Izquierdo MD URINALYSIS ORDERABLES Final Res ult Performing Organization Address [facility] Co de Phone Number [facility] [address] [place] [address] * SODIUM, URINE RANDOM (02/09/2008 13:37 EDT) Sodium, Ur 91.0 mEq/L [facility] 02/09/2008 13:3 7 EDT 02/09/2008 13:37 EDT Kris Izquierdo MD URINALYSIS ORDERABLES Final Res ult Performing Organization Address [facility] Co de Phone Number [facility] [address] [place] [address] * (ABNORMAL) URINALYSIS, CHEMICAL (02/09/2008 13:37 EDT) Color, UA Straw [facility] Clarity, UA Hazy [facility] Glucose, UA Norm NORM [facility] Bilirubin, UA Neg NEG [facility] Ketones, UA Neg NEG [facility] Specific [place], Urine 1.015 1.005 - 1.02 [facility] [...] ORDERABLES Final Res ult Performing Organization Address [facility] Co de Phone Number [facility] [address] [place] [address] * URINE MICROSCOPIC (02/09/2008 13:37 EDT) WBC, [...] ORDERABLES Final Res ult Performing Organization Address [facility] Co de Phone Number [facility] [address] [place] [address] * (ABNORMAL) T4 FREE (02/09/2008 12:06 EDT) Free T4 0.6(L) 0.8 - 1.5 ng/dL [facility] 02/09/2008 12:0 6 EDT 02/09/2008 12:06 EDT us Kris Izquierdo MD CHEMISTRY & BLOOD GAS ORDERABLE S Final Result Performing Organization Address [facility] Co de Phone Number [facility] [address] [place] [address] * TESTS ADDED BY PHONE (02/09/2008 12:06 EDT) Pathologist [facility] Tests to be added FT4 [facility] Who Called KAYLI FOR DR TONIE [facility] Location Code M3 [facility] 02/09/2008 12:0 6 EDT 02/09/2008 12:06 EDT us Kris Izquierdo MD CHEMISTRY & BLOOD GAS ORDERABLE S Final Result Performing Organization Address [facility] de Phone Number [facility] [address] [place] [address] * (ABNORMAL) ELECTROLYTES (02/09/2008 12:06 EDT) Sodium 120(LL) 136 - 145 mEq/L [facility] Comment:Sample retested, res ult confirmed Potassium 4.4 3.5 - 5.0 mEq/L [facility] Chloride 87(L) 96 - 110 mEq/L [facility] CO2 24 24 - 32 mEq/L [facility] 02/09/2008 12:0 6 EDT 02/09/2008 12:06 EDT us Kris Izquierdo MD CHEMISTRY & BLOOD GAS ORDERABLE S Final Result Performing Organization Address [facility] de Phone Number [facility] [address] [place] [address] * (ABNORMAL) GLUCOSE, GLUCOMETER (02/09/2008 11:59 EDT) Glucose, Fingerstick 102(H) 70 - 100 mg/dl [facility] Net Making Supervisor ID [id number] Test Performed by Nursing Services [facility] 02/09/2008 11:5 9 EDT 02/09/2008 23:28 EDT us Jodi Christie MD CHEMISTRY & BLOOD GAS ORDERABLE S Final Result Performing Organization Address [facility] de Phone Number [facility] [address] [place] [address] * GLUCOSE, GLUCOMETER (02/09/2008 10:09 EDT) Glucose, Fingerstick 82 70 - 100 mg/dl [facility] Net Making Supervisor ID [id number] Test Performed by Nursing Services [facility] 02/09/2008 10:0 9 EDT 02/09/2008 23:28 EDT us Jodi Christie MD CHEMISTRY & BLOOD GAS ORDERABLE S Final Result Performing Organization Address [facility] de Phone Number [facility] [address] [place] [address] * (ABNORMAL) ELECTROLYTES (02/09/2008 9:49 EDT) Sodium 120(LL) 136 - 145 mEq/L [facility] Comment:Sample retested, res ult confirmed Potassium 4.4 3.5 - 5.0 mEq/L [facility] Chloride 85(L) 96 - 110 mEq/L [facility] CO2 25 24 - 32 mEq/L [facility] 02/09/2008 9:49 EDT 02/09/2008 10:20 EDT us Kris Izquierdo MD CHEMISTRY & BLOOD GAS ORDERABLE S Final Result Performing Organization Address [facility] Co de Phone Number [facility] [address] [place] [address] * (ABNORMAL) ELECTROLYTES (02/09/2008 8:09 EDT) Sodium 119(LL) 136 - 145 mEq/L [facility] Comment:Sample retested, res ult confirmed Potassium 4.0 3.5 - 5.0 mEq/L [facility] Chloride 87(L) 96 - 110 mEq/L [facility] Comment:Sample retested, res ult confirmed CO2 24 24 - 32 mEq/L [facility] 02/09/2008 8:09 EDT 02/09/2008 8:09 EDT us Kris Izquierdo MD CHEMISTRY & BLOOD GAS ORDERABLE S Final Result Performing Organization Address [facility] de Phone Number [facility] [address] [place] [address] * GLUCOSE, GLUCOMETER (02/09/2008 8:08 EDT) Glucose, Fingerstick 85 70 - 100 mg/dl [facility] Net Making Supervisor ID [id number] Test Performed by Nursing Services [facility] 02/09/2008 8:08 EDT 02/09/2008 23:28 EDT us Jodi Christie MD CHEMISTRY & BLOOD GAS ORDERABLE S Final Result Performing Organization Address [facility] Co de Phone Number [facility] [address] [place] [address] * (ABNORMAL) BLOOD GAS, G3 ISTAT (02/09/2008 8:08 EDT) pH, i-STAT 7.42 7.35 - 7.45 [facility] pCO2, i-STAT 34(L) 35 - 45 mmHg [facility] pO2, i-STAT 43(L) 85 - 100 mmHg [facility] TCO2, i-STAT 23 mEq/L [facility] O2 Saturation 86 % [facility] Base Deficit 3 [facility] Temperature 34.1 C [facility] FIO2 21 [facility] Sample Type VENOUS [facility]IS[facility] firefighter type one ID [id number] Test Performed by Respiratory [facility] 02/09/2008 8:08 EDT 02/09/2008 8:13 EDT us Kris Izquierdo MD CHEMISTRY & BLOOD GAS ORDERABLE S Final Result Performing Organization Address [facility] Co de Phone Number [facility] [address] [place] [address] * (ABNORMAL) ELECTROLYTES (02/09/2008 6:55 EDT) Sodium [...] ORDERABLE S Final Result Performing Organization Address City/[facility] Co de Phone Number [facility] [address] [place] [address] * (ABNORMAL) BLOOD GAS, G3 ISTAT (02/09/2008 [...] LAB Sample Type NOT GIVEN [facility] [place] [id number] Test performed by Chemistry [facility] 02/09/2008 5:35 EDT 02/09/2008 5:43 EDT us Kris Izquierdo MD CHEMISTRY & BLOOD GAS ORDERABLE S Final Result Performing Organization Address City/[facility]/ZIP Co de Phone Number [facility] [address] [place] [address] * MRSA MOLECULAR DETECTION (02/09/2008 5:18 EDT) Specimen Description Nasal [facility] Result NEGATIVE for Methicillin Resistant Staphylococcus aureus DNA by PCR. [facility] Report Status Final [id number] [facility] 02/09/2008 5:18 EDT 02/09/2008 7:21 EDT Kris Izquierdo MD MICROBIOLOGY - GENERAL ORDERABL ES Final Result Performing Organization Address [facility] Co de Phone Number [facility] [address] [place] [address] * GLUCOSE, SERUM (02/09/2008 5:15 EDT) Glucose, Serum 76 70 - 100 mg/dl [facility] 02/09/2008 5:15 EDT 02/09/2008 5:22 EDT us Kris Izquierdo MD CHEMISTRY & BLOOD GAS ORDERABLE S Final Result Performing Organization Address City/[facility] Co de Phone Number [facility] [address] [place] [address] * (ABNORMAL) CREATININE (02/09/2008 5:15 EDT) Creatinine 0.57(L) 0.6 - 1.2 mg/dl [facility] GFR, Calculated Age <18 ml/min/1.7 3m2 [facility] 02/09/2008 5:15 EDT 02/09/2008 5:22 EDT Kris Izquierdo MD CHEMISTRY & BLOOD GAS ORDERABLE S Final Result Performing Organization Address City/[facility]/ZIP Co de Phone Number [facility] [address] [place] [address] * (ABNORMAL) BUN (02/09/2008 5:15 EDT) BUN 7(L) 8 - 21 mg/dl [facility] 02/09/2008 5:15 EDT 02/09/2008 5:22 EDT us Kris Izquierdo MD CHEMISTRY & BLOOD GAS ORDERABLE S Final Result Performing Organization Address [facility] de Phone Number [facility] [address] [place] [address] * PHOSPHORUS (02/09/2008 5:15 EDT) Phosphorus 3.3 2.7 - 4.7 mg/dl [facility] 02/09/2008 5:15 EDT 02/09/2008 5:22 EDT Kris Izquierdo MD CHEMISTRY & BLOOD GAS ORDERABLE S Final Result Performing Organization Address [facility] Co de Phone Number [facility] [address] [place] [address] * (ABNORMAL) MAGNESIUM (02/09/2008 5:15 EDT) Magnesium 1.6(L) 1.7 - 2.8 mg/dl [facility] 02/09/2008 5:15 EDT 02/09/2008 5:22 EDT Kris Izquierdo MD CHEMISTRY & BLOOD GAS ORDERABLE S Final Result Performing Organization Address City/[facility]/ZIP Co de Phone Number [facility] [address] [place] [address] * (ABNORMAL) ELECTROLYTES (02/09/2008 5:15 EDT) Sodium [...] ORDERABLE S Final Result Performing Organization Address [facility] Co de Phone Number [facility] [address] [place] [address] * CULTURE IF UA POSITIVE (02/09/2008 5:15 EDT) Culture if Indicated Culture not indicated by urinalysis results. [facility] 02/09/2008 5:15 EDT 02/09/2008 5:24 EDT Kris Izquierdo MD MICROBIOLOGY - GENERAL ORDERABL ES Final Result Performing Organization Address [facility] de Phone Number [facility] [address] [place] [address] * UA REFLEX (02/09/2008 5:15 EDT) UA Billing Microscopic not indicated. [facility] 02/09/2008 5:15 EDT 02/09/2008 5:24 EDT Kris Izquierdo MD URINALYSIS ORDERABLES Final Res ult Performing Organization Address [facility] Co de Phone Number [facility] [address] [place] [address] * (ABNORMAL) URINALYSIS, CHEMICAL (02/09/2008 5:15 EDT) Color, UA Yellow [facility] Clarity, UA Clear [facility] Glucose, UA Norm NORM [facility] Bilirubin, UA Neg NEG [facility] Ketones, UA Neg NEG [facility] Specific [place], Urine >1.030(H) 1.005 - 1.02 [facility] [...] ORDERABLES Final Res ult Performing Organization Address [facility] Co de Phone Number [facility] [address] [place] [address] * GLUCOSE, GLUCOMETER (02/09/2008 0:01 EDT) Glucose, Fingerstick 96 70 - 100 mg/dl [facility] Net Making Supervisor ID [id number] Test Performed by Nursing Services [facility] 02/09/2008 0:01 EDT 02/09/2008 19:26 EDT us Jodi Christie MD CHEMISTRY & BLOOD GAS ORDERABLE S Final Result Performing Organization Address City/[facility] Co de Phone Number [facility] [address] [place] [address] documented in this encounter Visit Diagnoses Not on filedocumented in this encounter
--- OUTSIDE RECORDS SUMMARY | 2024-07-22 13:45 | XMS_ITS | Encounter Summary ---
Author Organization [facility] Address [address] [place] [address] Care Team Providers Care Food And Beverage Controller Name Role Phone Yan Demarco MD Primary Care Provider [phone] Corin Skinner MD Primary Care Provider [phone] Encounter Details Date Type Department Care Team (Late st Contact Info) Description 02/08/2008 Office Visit [facility] - [facility] [address] [place] [address] Yossi Murphy MD [address] [facility], [address] [place] [address] Social History Tobacco Use Types [...] At pt's family's request, PICU attending at [facility] notified. PICU attending agreed with plan of [...] endocrine), peds resident, PICU attending physician at [facility]. Reviewed test results. Agreed upon treatment plan. [...] qd, calcium, vitamin d, niacin 1000mg tid, [id number] hs, hydrocortisone 5mg -2tabs am, 1 tab [...] --[id number] Bryant Baker R.N.. NURSING PROGRESS NOTES (putaway driver at bedside.). --[id number] Bryant Baker R.N. [...] Manuel Bejarano R.N.. IV / I&O Flowsheet [id number] late entry -. IV Site #1. IV access: left hand. IV started in ED with 20g angiocath using aseptic technique; one attempt. Saline lock placed; (iv started and blood drawn by putaway driver.). --0033 Bryant Baker R.N. IV Site #1. IV fluids started. IV bag #1; 300 mL bolus 3% NaClat 100 mL/hr. --022 Manuel Bejarano R.N.. DISPOSITION / DISCHARGE (Transported to on adjunct mathematics instructor by this RN and turned over to care of [facility]3 nursing staff.). --[id number] Manuel Bejarano R.N.. Clara Chung R.N., R.N. Locked/Released at 02/09/2008 7:29 by Manuel Bejarano R.N. documented in this encounter Plan of Treatment Upcoming Encounters Date Type Department Care Team (Late st Contact Info) Description 10/01/2024 13:40 EDT Office Visit [facility] Endocrinology - [facility] [address] [place] [address] Wilder Zaidi, [address] [facility] [address] [place] [address] documented as of this encounter Visit Diagnoses Not on filedocumented in this encounter Care Teams Food And Beverage Controller Relationship Specialty Start Date End Date Yan Demarco MD [address] [place] [address] PCP - General 08/22/09 02/20/10 Corin Skinner MD [address] [place] [phone] PCP - General 10/24/08 08/21/09 documented as of this encounter
--- OUTSIDE RECORDS SUMMARY | 2024-07-22 13:45 | XMS_ITS | Encounter Summary ---
Author Organization [facility] Address [address] [place] [address] Care Team Providers Care Security Engineer Name Role Phone Unavailable Primary Care Provider Unavailabl e Encounter Details Date Type Department Care Team (Late st Contact Info) Description 04/11/2008 14:00 EDT - 04/13/2008 11:59 EDT Hospital Encounter [facility] [address] [place] [address] Skyler Quinteros MD [facility] 111 [facility], [address] [phone] Christopher Ga MD [address] [place] [phone] Discharge Disposition: Home-Health Care Svc Social [...] - 01/17/20092037 EDT HISS DISCHARGE SUMMARY ADDRESS: [address] [place] [address] PHONE: [phone] ATTENDING PHYSICIAN: SKYLER QUINTEROS MD ADDRESS: [place] [address] [address] [place] [address] PHONE: [phone] REFERRING PHYSICIAN: JOSEY SKINNER MD ADDRESS: [facility] [address] [place] [address] PHONE: [phone] ADMISSION DATE: 04/11/08 SERVICE: PED. MEDICINE TRANSFER TO IP: DISCHARGE DATE: 04/13/08 SERVICE: PED. 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 If you are taking herbal remedies, nutritional supplements, or tqes-jyg-gtekahy medications you are strongly encouraged to discontinue [...] lasting about 30s. He was taken to [facility] and was hypotensive and hypothermic. His vitals improved after he was bolused and given 100mg of Solucortef IV. He was also given IM ceftriaxone x1. Transferred to [facility]. 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 His seizure threashold was most likely lowered by a viral infection, disurbed sleep pattern, or other unknown entity. Started Keppra per Neuro recommendations. He has an appt to see a neurologist at [facility] in May. Disturbed sleep and and apparent [...] lytes as an outpatient 04/14. Nutrition: the chemical checker were consulted regarding Miguel Angel's very restrictive calorie restriction and recommended a new diet plan of 1800 kcal/day and 75g protien. They are happy to see Miguel Angel with his parents as an outpatient at [facility] as they were unable to meet [...] Follow up with your new neurologist at [facility] Follow up with Dr. King in [place], endocrinology Follow up with Dr. Skinner at 3:30PM HOME HEALTH CARE REFERRAL SERVICES: Previously followed by: [facility] __ Initial call by: _Jazz Bush on 04/12/08_@ __:__ Spoke with: _Jyothi in intake [phone] fax [phone] The primary care physician has been notified of the home health referral and has given verbal permission for all orders and/or clarifications pursuant to this referral to be managed by the primary care physician's office. Marta Pisano (Sweatband Perforator) to follow as outpt through [place] office cc: Patient chart MD JOSEY SCHMITZ MD Dr. Larrow at [phone] Pediatric Neurology at [facility] END OF REPORT D: YAN KHAN MD P - ZOHDocument ID: [id number] documented in this encounter Discharge Disposition Disposition Code Departure Means Destination Home-Health Care [facility] documented in this encounter Consult Notes * Lc Cheng MD - 04/11/2008 0000 EDT INPATIENT CONSULTATION Admission Date: 04/11/2008 Date of consultation: 04/11/2008 Requesting physician: Skyler Quinteros MD. This is a 17with re-presentation with [...] frustration with the care they received at [facility] but apparently had made a spontaneous recovery. [...] his early February admission here and at [facility]. There was no fever but he was [...] that there is a follow-up appointment at [facility] Neurology and perhaps that will be the [...] Lc Cheng MD P - Job ID: [id number] Document ID: [id number] cc: MD Yan Walker MD Paul Rosenau, MD documented in this encounter Plan of Treatment Upcoming Encounters Date Type Department Care Team (Late st Contact Info) Description 10/01/2024 13:[address] [facility] Endocrinology - [place] [address] [address] Dejuan Wilder Valencia, DO [address] [place] [address] documented as of this encounter [...] 04/13/2008 6:47 EDT 04/13/2008 6:49 EDT Skyler Quinteros MD MSc CHEMISTRY & BLOOD GAS ORDERABLES Final Result Performing Organization Address [facility] de Phone Number [facility] [address] [place] [address] * (ABNORMAL) ELECTROLYTES (04/12/2008 18:38 EDT) Sodium [...] 18:3 8 EDT 04/12/2008 18:53 EDT Skyler Quinteros MD MSc CHEMISTRY & BLOOD GAS ORDERABLES Final Result Performing Organization Address [facility] de Phone Number [facility] [address] [place] [address] * CREATININE (04/12/2008 10:29 EDT) Creatinine 0.60 0.6 - 1.2 mg/dl [facility] GFR, Calculated Age <18 ml/min/1.7 3m2 [facility] 04/12/2008 10:2 9 EDT 04/12/2008 10:30 EDT Skyler Quinteros MD MSc CHEMISTRY & BLOOD GAS ORDERABLES Final Result Performing Organization Address [facility] de Phone Number [facility] [address] [place] [address] * BUN (04/12/2008 10:29 EDT) BUN 13 8 - 21 mg/dl [facility] 04/12/2008 10:2 9 EDT 04/12/2008 10:30 EDT Skyler Quinteros MD MSc CHEMISTRY & BLOOD GAS ORDERABLES Final Result Performing Organization Address City/[facility] Co de Phone Number [facility] [address] [place] [address] * (ABNORMAL) ELECTROLYTES (04/12/2008 10:29 EDT) Sodium 129(L) 136 - 145 mEq/L [facility] Potassium 3.9 3.5 - 5.0 mEq/L [facility] Chloride 94(L) 96 - 110 mEq/L [facility] CO2 25 24 - 32 mEq/L [facility] 04/12/2008 10:2 9 EDT 04/12/2008 10:30 EDT Skyler Quinteros MD MSc CHEMISTRY & BLOOD GAS ORDERABLES Final Result Performing Organization Address [facility] de Phone Number [facility] [address] [place] [address] * (ABNORMAL) HEMAGRAM AND DIFFERENTIAL (04/12/2008 10:29 EDT) Pathologist [facility] WBC 3.12(L) 4.6 - 11.2 K/cmm [facility] [...] [facility] RDW-CV 16.7 % [facility] Neutrophils 28.0 % [facility] % Bands 1.0 % [facility] Lymphocytes 55.0 % [facility] Monocytes 15.0 % [facility] Eosinophils 1.0 % [facility] ABS Neutrophils 0.87 K/cmm [facility] Bands 0.03 K/cmm [facility] ABS Lymphs 1.72 K/cmm [facility] ABS Monocytes 0.47 K/cmm [facility] ABS Eosinophils 0.03 K/cmm [facility] RBC Morphology 1+ Anisocytosis 1+ Microcytes [facility] Type of Diff: Manual [facility] 04/12/2008 10:2 9 EDT 04/12/2008 10:30 EDT Skyler Quinteros MD MSc PACKAGES & DNA PROBE ORDERABLES Final Result Performing Organization Address [facility] de Phone Number [facility] [address] [place] [address] * CREATININE (04/11/2008 16:00 EDT) Pathologist [facility] Creatinine 0.81 0.6 - 1.2 mg/dl [facility] GFR, Calculated Age <18 ml/min/1.7 3m2 [facility] 04/11/2008 16:0 0 EDT 04/11/2008 17:27 EDT Skyler Quinteros MD MSc CHEMISTRY & BLOOD GAS ORDERABLES Final Result Performing Organization Address [facility] de Phone Number [facility] [address] [place] [address] * BUN (04/11/2008 16:00 EDT) BUN 17 8 - 21 mg/dl [facility] 04/11/2008 16:0 0 EDT 04/11/2008 17:27 EDT Skyler Quinteros MD MSc CHEMISTRY & BLOOD GAS ORDERABLES Final Result Performing Organization Address [facility] de Phone Number [facility] [address] [place] [address] * (ABNORMAL) ELECTROLYTES (04/11/2008 16:00 EDT) Sodium 130(L) 136 - 145 mEq/L [facility] Potassium 4.1 3.5 - 5.0 mEq/L [facility] Chloride 95(L) 96 - 110 mEq/L [facility] CO2 23(L) 24 - 32 mEq/L [facility] 04/11/2008 16:0 0 EDT 04/11/2008 17:27 EDT us Skyler Quinteros MD MSc CHEMISTRY & BLOOD GAS ORDERABLES Final Result [facility] [address] [place] [address] documented in this encounter Visit Diagnoses Not on filedocumented in this encounter
--- OUTSIDE RECORDS SUMMARY | 2024-07-22 13:45 | XMS_ITS | Encounter Summary ---
Author Organization [facility] Address [address] [place] [address] Care Team Providers Care Data Warehousing Specialist Name Role Phone Corin Skinner MD Primary Care Provider [phone] Encounter Details Date Type Department Care Team (Late st Contact Info) Description 02/11/2008 Before PRISM Converted Visit ([place]le) [facility] - [place] conversion [address] [place] [address] Jose Lopez MD PhD [address] [facility]. [address] [place] [phone] Social History Tobacco Use Types Packs/Day Years [...] Jose Lopez MD,PHD ABPN Certified in Neurology [place] Board Clinical Neurophysiology - Jose Lopez MD,PHD P - LBR Job ID: [id number] Document ID: [id number] cc: MD Yan Walker MD lbr Job ID: [id number] Document ID: [id number] cc: MD Yan Walker MD documented in this encounter Plan of Treatment Upcoming Encounters Date Type Department Care Team (Late st Contact Info) Description 10/01/2024 13:40 EDT Office Visit [facility] Endocrinology - [facility] [address] [place] [address] Wilder Zaidi, DO [address] [facility] [place] [address] documented as of this encounter Visit Diagnoses Not on filedocumented in this encounter Care Teams Data Warehousing Specialist Relationship Specialty Start Date End Date Corin Skinner MD [address] [place] [phone] PCP - General 10/24/08 08/21/09 documented as of this encounter
--- OUTSIDE RECORDS SUMMARY | 2024-07-22 13:45 | XMS_ITS | Encounter Summary ---
Author Organization [facility] Address [address] [place] [address] Care Team Providers Care Engineering Associate Name Role Phone Corin Skinner MD Primary Care Provider [phone] Encounter Details Date Type Department Care Team (Late st Contact Info) Description 04/11/2008 Office Visit [facility] conversion [address] [place] [address] Nurse, Emergency Room, Social History Tobacco Use Types Packs/Day Years Used Date Smoking Tobacco: Never Assessed Sex and Gender Information Value Date Recorded Sex Assigned at Not on file Legal Sex Male 18:35 EST Gender Identity Not on file Sexual Orientation Not on file documented as of this encounter Progress Notes * Ricki, Conv [employer] - 08/16/2009 1849 EST Department - Physician Summary Registration Date/Time: 04/11/2008 6:00 Addenda for MIGUEL ANGEL MASON JR VisitID: [id number] Date: 04/11/2008 04/11/2008 4:46 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 POSTICTAL, INCONTINENT, RECTAL TEMP: 89 F, NOW 92 F. HX: DM, BLOOD CX, WBC 1.8, [id number]. VS: 98 113/64 16. signed by Wilder Driscoll - 04/11/2008 4:46) 04/11/2008 4:48 Dr[address] Ga accepting signed by Rosy Garcia 04/11/2008 4:48) Department -Nursing Summary Registration Date/Time: 04/11/2008 6:00 TRIAGE Initial Assessment Triage time 06:15 Apr 11 2008. BP: 113/47. HR: 107. RR: 22. Temp: 96 F (tympanic). O2 saturation: 96% room air. --634 Rsoy Ramírez R.N.. Medications Hydrocortisone Tablets: 30mg (30mg q am, 15mg q noon, 15mg qpm).daily (0.2mg ). (melatonin 9mg q hs). Provigil: 100 mg daily. Seroquel: 200mg daily. Temazepam: 15mg at bedtime. --634 Rosy Ramírez R.N.. Allergies (lopid). --634 Rosy Ramírez R.N.. History Chief Complaint: (r/o sepsis, s/p witnessed seizure by mom.). This started today. Pain level: unable to quantify. Treatment NONPROFIT DIRECTOR: (see transfer paperwork). PAST HX: Diabetes mellitus (insipidus). (traumatic brain injury, seizure disorder). SOCIAL HX: Nonsmoker. No alcohol use. The nutritional risk assessment revealed no deficiencies. No report of abuse. Arrived by EMS. Historian: EMS. --634 Rosy Ramírez R.N. (Father states when at [place] 2 months ago, it was discovered that [...] Info) Description 10/01/2024 13:40 EDT Office Visit [facility] Endocrinology - [place] [address] [place] [address] Wilder Zaidi, DO [address] [place] [address] documented as of this encounter Visit Diagnoses Not on filedocumented in this encounter Care Teams Engineering Associate Relationship Specialty Start Date End Date Corin Skinner MD [address] [place] [phone] PCP - General 10/24/08 08/21/09 documented as of this encounter
--- OUTSIDE RECORDS SUMMARY | 2024-07-22 13:46 | XMS_ITS | Encounter Summary ---
Author Organization [facility] Address [address] [place] [address] Care Team Providers Care Therapy Teacher Name Role Phone Corin Skinner MD Primary Care Provider [phone] Encounter Details Date Type Department Care Team (Late st Contact Info) Description 05/15/2007 Before PRISM Converted Visit ([place]) [facility] [place] conversion [address] [place] [address] Marvin Perez MD [address] [place] [phone] Social History Tobacco Use Types Packs/Day Years Used Date Smoking Tobacco: Never Assessed Sex and Gender Information Value Date Recorded Sex Assigned at Not on file Legal Sex Male 18:35 EST Gender Identity Not on file Sexual Orientation Not on file documented as of this encounter Progress Notes * Marvin Perez - 05/17/2009 1403 EST DIVISION OF NEUROSURGERY PROGRESS/FOLLOWUP NOTE - 05/15/2007 Kris Drew MD [address] [place] [address] Drew: Miguel Angel Burgos was [...] - Marvin Perez MD - Job ID: [id number] Doc ID: [id number] cc: Kris Drew MD - Job ID: [id number] Doc ID: [id number] cc: Kris Drew MD documented in this encounter Plan of Treatment Upcoming Encounters Date Type Department Care Team (Late st Contact Info) Description 10/01/2024 13:40 EDT Office Visit [facility] Endocrinology - [address] [phone] Wilder Zaidi, [address] [place] [address] documented as of this encounter Visit Diagnoses Not on filedocumented in this encounter Care Teams Therapy Teacher Relationship Specialty Start Date End Date Corin Skinner MD [address] [place] [phone] PCP - General 10/24/08 08/21/09 documented as of this encounter
--- OUTSIDE RECORDS SUMMARY | 2024-07-22 13:46 | XMS_ITS | Encounter Summary ---
Author Organization [facility] Address [address] [place] [address] Care Team Providers Care Pipe Bender Name Role Phone Yan Demarco MD Primary Care Provider [phone] Corin Skinner MD Primary Care Provider Akil Serrano MD Primary Care Provider [phone] Encounter Details Date Type Department Care Team (Late st Contact Info) Description 08/19/2007 Results Only [facility] Children[facility] - [facility] [address] [place], [place] [phone] [facility] [address] [place] [phone] Social History Tobacco Use Types Packs/Day Years [...] 10/01/2024 13:40 EDT Office Visit [facility]ology - [facility] [address] [place] [address] Wilder Zaidi, DO [address] [facility] [address] [place] [address] documented as of this encounter Procedures Procedure Name Priority Date/Time Associated Diagnosis Comments T4 FREE Routine 08/19/2007 11:15 EST TESTOSTERONE Routine 08/19/2007 11:15 EST LH Routine 08/19/2007 11:15 EST FSH Routine 08/19/2007 11:15 EST COMPREHENSIVE METABOLIC PANEL (CMP) Routine 08/19/2007 11:15 EST documented in this encounter Results * (ABNORMAL) TESTOSTERONE (08/19/2007 11:15 EST) Testosterone, Total 100(L) 241 - 827 ng/dL [facility] 08/19/2007 11:1 5 EST 08/19/2007 11:20 EST Skyler Edwards [facility] CHEMISTRY & BL OOD GAS ORDERABLES Final Result Performing Organization Address City/[facility] Co de Phone Number [facility] [address] [place] [address] * LH (08/19/2007 11:15 EST) Pathologist [facility] LH <0.1 mIU/ml [facility] 08/19/2007 11:1 5 EST 08/19/2007 11:20 EST Skyler Edwards [facility] CHEMISTRY & BL OOD GAS ORDERABLES Final Result Performing Organization Address City/[facility] Co de Phone Number [facility] [address] [place] [address] * T4 FREE (08/19/2007 11:15 EST) Free T4 0.8 0.8 - 1.5 ng/dL [facility] 08/19/2007 11:1 5 EST 08/19/2007 11:20 EST Skyler Aburto Grace [facility] CHEMISTRY & BL OOD GAS ORDERABLES Final Result [facility] [address] [place] [address] * FSH (08/19/2007 11:15 EST) Pathologist [facility] FSH <0.3 mIU/ml [facility] 08/19/2007 11:1 5 EST 08/19/2007 11:20 EST Skyler Aburto Grace [facility] CHEMISTRY & BL OOD GAS ORDERABLES Final Result Performing Organization Address [facility] Co de Phone Number [facility] [address] [place] [address] * (ABNORMAL) COMPREHENSIVE METABOLIC PANEL (08/19/2007 11:15 EST) Pathologist [facility] Potassium 3.7 3.5 - 5.0 mEq/L [facility] Sodium 118(LL) 136 - 145 mEq/L [facility] Comment:Sample retested, res ult confirmed Chloride 81(L) 96 - 110 mEq/L [facility] CO2 26 24 - 32 mEq/L [facility] Total Alkaline Phosphatase 150 65 - 260 U/L [facility] Bilirubin, Total 0.5 0.0 - 1.4 mg/dl [facility] AST 33 15 - 46 U/L [facility] ALT 40 0 - 45 U/L [facility] Albumin 4.9 3.0 - 5.5 g/dl [facility] Total Protein 7.9 6.3 - 8.6 g/dl [facility] Creatinine 0.67 0.6 - 1.2 mg/dl [facility] GFR, Calculated Age <18 ml/min/1.7 3m2 [facility] BUN 6(L) 8 - 21 mg/dl [facility] Calcium 9.0 8.5 - 10.5 mg/dl [facility] Calculated Calcium 8.5 8.5 - 10.5 mg/dl [facility] Glucose, Serum 81 70 - 100 mg/dl [facility] Fasting? No [facility] 08/19/2007 11:1 5 EST 08/19/2007 11:20 EST Skyler Edwards [facility] CHEMISTRY & BL OOD GAS ORDERABLES Final Result [facility] [address] [place] [address] documented in this encounter Visit Diagnoses Not on filedocumented in this encounter Care Teams Pipe Bender Relationship Specialty Start Date End Date Yan Demarco MD [address] [place] [address] PCP - General 08/22/09 02/20/10 Corin Skinner MD [address] [place] [phone] PCP - General 10/24/08 08/21/09 Akil Serrano MD [address] [facility] [address] [place] [address] PCP - General 02/21/10 04/16/11 documented as of this encounter
--- OUTSIDE RECORDS SUMMARY | 2024-07-22 13:46 | XMS_ITS | Encounter Summary ---
Author Organization [facility] Address [address] [place] [address] Care Team Providers Care Nail Technician Name Role Phone Unavailable Primary Care Provider Unavailabl e Encounter Details Date Type Department Care Team (Late st Contact Info) Description 11/28/2007 8:34 EDT - 11/28/2007 11:59 EDT Hospital Encounter [facility] [address] [place] [address] Desean Huerta MD [address] [facility]. [address] [place] [phone] Discharge Disposition: Auto Discharge Social History Tobacco [...] Description 10/01/2024 13:40 EDT Office Visit [facility] Endocr[facility]ology - [facility] [address] [place] [address] Wilder Zaidi, 62 [facility] [address] [place] [phone] documented as of this encounter Procedures Procedure [...] BLES Final Result [facility] [address] [place] [address] * (ABNORMAL) TSH (04/11/2008 8:55 EDT) TSH <0.02(L) 0.35 - 5.00 uIU/mL [facility] 04/11/2008 8:55 EDT 04/11/2008 9:09 EDT us Default Emergency MD CHEMISTRY & BLOOD GAS ORDER LYNDSEY Final Result Performing Organization Address [facility] Co de Phone Number [facility] [address] [place] [address] * (ABNORMAL) T4 FREE (04/11/2008 8:55 EDT) Free T4 1.7(H) 0.8 - 1.5 ng/dL [facility] 04/11/2008 8:55 EDT 04/11/2008 9:09 EDT us Default Emergency CHEMISTRY & BLOOD GAS ORDER LYNDSEY Final Result Performing Organization Address [facility] Co de Phone Number [facility] [address] [place] [address] * GLUCOSE, SERUM (04/11/2008 8:55 EDT) Glucose, Serum 79 70 - 100 mg/dl [facility] 04/11/2008 8:55 EDT 04/11/2008 9:09 EDT us Default Emergency CHEMISTRY & BLOOD GAS ORDER LYNDSEY Final Result Performing Organization Address City/[facility]/ZIP Co de Phone Number [facility] [address] [place] [address] * CREATININE (04/11/2008 8:55 EDT) Creatinine 0.60 0.6 - 1.2 mg/dl [facility] GFR, Calculated Age <18 ml/min/1.7 3m2 [facility] 04/11/2008 8:55 EDT 04/11/2008 9:09 EDT us Default Emergency MD CHEMISTRY & BLOOD GAS ORDER LYNDSEY Final Result Performing Organization Address [facility] de Phone Number [facility] [address] [place] [address] * BUN (04/11/2008 8:55 EDT) BUN 14 8 - 21 mg/dl [facility] 04/11/2008 8:55 EDT 04/11/2008 9:09 EDT us Default Emergency MD CHEMISTRY & BLOOD GAS ORDER LYNDSEY Final Result Performing Organization Address [facility] de Phone Number [facility] [address] [place] [address] * (ABNORMAL) ELECTROLYTES (04/11/2008 8:55 EDT) Sodium 131(L) 136 - 145 mEq/L [facility] Potassium 4.4 3.5 - 5.0 mEq/L [facility] Chloride 95(L) 96 - 110 mEq/L [facility] CO2 25 24 - 32 mEq/L [facility] 04/11/2008 8:55 EDT 04/11/2008 9:09 EDT us Default Emergency MD CHEMISTRY & BLOOD GAS ORDER LYNDSEY Final Result Performing Organization Address [facility] de Phone Number [facility] [address] [place] [address] * PORTABLE CHEST 1 VIEW (02/12/2008 14:29 [...] 70 - 100 mg/dl [facility] [place] [id number] Test Performed by Nursing Services [facility] 02/08/2008 23:3 8 EDT 02/09/2008 6:19 EDT us Rachana Robb MD CHEMISTRY & BLOOD GAS ORDERABLES Final Result [facility] [address] [place] [address] * PHOSPHORUS (02/08/2008 22:45 EDT) Phosphorus 4.0 2.7 - 4.7 mg/dl [facility] 02/08/2008 22:4 5 EDT 02/08/2008 22:58 EDT us Default Emergency MD CHEMISTRY & BLOOD GAS ORDER LYNDSEY Final Result Performing Organization Address City/[facility] de Phone Number [facility] [address] [place] [address] * (ABNORMAL) MAGNESIUM (02/08/2008 22:45 EDT) Magnesium 1.4(L) 1.7 - 2.8 mg/dl [facility] 02/08/2008 22:4 5 EDT 02/08/2008 22:58 EDT us Default Emergency MD CHEMISTRY & BLOOD GAS ORDER LYNDSEY Final Result Performing Organization Address [facility] de Phone Number [facility] [address] [place] [address] * CALCIUM (02/08/2008 22:45 EDT) Calcium 8.6 8.5 - 10.5 mg/dl [facility] Calculated Calcium 9.3 8.5 - 10.5 mg/dl [facility] 02/08/2008 22:4 5 EDT 02/08/2008 22:58 EDT Default Emergency MD CHEMISTRY & BLOOD GAS ORDER LYNDSEY Final Result Performing Organization Address [facility] de Phone Number [facility] [address] [place] [address] * CORTISOL (02/08/2008 22:45 EDT) Cortisol 9 ug/dl [facility] Comment: 7-9a.m.=4.3-22.4 3-5p.m.=3.1-16.7 02/08/2008 22:4 5 EDT 02/08/2008 22:58 EDT us Default Emergency MD CHEMISTRY & BLOOD GAS ORDER LYNDSEY Final Result Performing Organization Address [facility] Co de Phone Number [facility] [address] [place] [address] * GLUCOSE, SERUM (02/08/2008 22:45 EDT) Pathologist [facility] [place] Glucose, Serum 87 70 - 100 mg/dl [facility] 02/08/2008 22:4 5 EDT 02/08/2008 22:58 EDT us Default Emergency MD CHEMISTRY & BLOOD GAS ORDER LYNDSEY Final Result Performing Organization Address [facility] de Phone Number [facility] [address] [place] [address] * (ABNORMAL) BUN (02/08/2008 22:45 EDT) Pathologist [facility] BUN 6(L) 8 - 21 mg/dl [facility] 02/08/2008 22:4 5 EDT 02/08/2008 22:58 EDT us Default Emergency MD CHEMISTRY & BLOOD GAS ORDER LYNDSEY Final Result Performing Organization Address [facility] Phone Number [facility] [address] [place] [address] * (ABNORMAL) ELECTROLYTES (02/08/2008 22:45 EDT) Pathologist [facility] Sodium 117(LL) 136 - 145 mEq/L [facility] Comment:Sample retested, res ult confirmed Potassium 3.8 3.5 - 5.0 mEq/L [facility] Chloride 81(L) 96 - 110 mEq/L [facility] CO2 25 24 - 32 mEq/L [facility] 02/08/2008 22:4 5 EDT 02/08/2008 22:58 EDT Default Emergency MD CHEMISTRY & BLOOD GAS ORDER LYNDSEY Final Result Performing Organization Address [facility] de Phone Number [facility] [address] [place] [address] * (ABNORMAL) CREATININE (02/08/2008 22:45 EDT) Pathologist [facility] Creatinine 0.40(L) 0.6 - 1.2 mg/dl [facility] GFR, Calculated Age <18 ml/min/1.7 3m2 [facility] 02/08/2008 22:4 5 EDT 02/08/2008 22:58 EDT Default Emergency MD CHEMISTRY & BLOOD GAS ORDER LYNDSEY Final Result Performing Organization Address [facility] Co de Phone Number [facility] [address] [place] [address] * PHENYTOIN (02/08/2008 22:45 EDT) Pathologist [facility] Phenytoin 12.9 ug/ml [facility] Calculated Phenytoin 13.4 ug/ml [facility] Comment: Calculated phenytoin is adjusted for albumin level. 02/08/2008 22:4 5 EDT 02/08/2008 22:58 EDT Default Emergency MD CHEMISTRY & BLOOD GAS ORDER LYNDSEY Final Result Performing Organization Address [facility] de Phone Number [facility] [address] [place] [address] * (ABNORMAL) HEMAGRAM AND DIFFERENTIAL (02/08/2008 22:45 EDT) Pathologist [facility] WBC 3.05(L) 4.6 - 11.2 K/cmm [facility] RBC 4.92 4.50 - 5.30 M/cmm [facility] Hemoglobin 12.8(L) 13.0 - 16.0 gm/dl [facility] HCT 36.9(L) 37.0 - 49.0 % [facility] MCV 75(L) 78 - 98 fl [facility] MCH 26.0 pg [facility] MCHC 34.7 gm/dl [facility] PLT 129(L) 156 - 312 K/cmm [facility] RDW-CV 15.6 % [facility] Neutrophils 62.8 % [facility] Lymphocytes 27.5 % [facility] [...] of Diff: Automated [facility] 02/08/2008 22:4 5 EDT 02/08/2008 22:58 EDT [facility] Emergency PACKAGES & DNA PROBE ORDERA BLES Final Result Performing Organization Address [facility] Co de Phone Number [facility] [address] [place] [address] * (ABNORMAL) GLUCOSE, PLASMA (02/08/2008 17:12 EDT) Glucose, Plasma 64(L) 70 - 100 mg/dl [facility] 02/08/2008 17:1 2 EDT 02/08/2008 17:14 EDT Rui Bazan MD CHEMISTRY & BLOOD GAS ORDERABL ES Final Result Performing Organization Address [facility] de Phone Number [facility] [address] [place] [address] * (ABNORMAL) CREATININE (02/08/2008 17:12 EDT) Creatinine 0.57(L) 0.6 - 1.2 mg/dl [facility] GFR, Calculated Age <18 ml/min/1.7 3m2 [facility] 02/08/2008 17:1 2 EDT 02/08/2008 17:14 EDT Rui Bazan MD CHEMISTRY & BLOOD GAS ORDERABL ES Final Result Performing Organization Address [facility] Co de Phone Number [facility] [address] [place] [address] * PHENYTOIN (02/08/2008 17:12 EDT) Phenytoin 11.3 ug/ml [facility] Calculated Phenytoin 9.9 ug/ml [facility] Comment: Calculated phenytoin is adjusted for albumin level. 02/08/2008 17:1 2 EDT 02/08/2008 17:14 EDT Rui Bazan MD CHEMISTRY & BLOOD GAS ORDERABL ES Final Result Performing Organization Address [facility] de Phone Number [facility] [address] [place] [address] * (ABNORMAL) LIVER FUNCTION TESTS (02/08/2008 17:12 EDT) Albumin 5.2 3.0 - 5.5 g/dl [facility] Total Protein 8.1 6.3 - 8.6 g/dl [facility] Alkaline Phosphatase 135 65 - 260 U/L [facility] ALT 30 0 - 45 U/L [facility] AST 48(H) 15 - 46 U/L [facility] Unconjugated Bilirubin 0.5 0.1 - 1.1 mg/dl [facility] Conjugated Bilirubin 0.0 0.0 - 0.3 mg/dl [facility] Bilirubin, Total <0.5 0.0 - 1.4 mg/dl [facility] 02/08/2008 17:1 2 EDT 02/08/2008 17:14 EDT Rui Bazan MD CHEMISTRY & BLOOD GAS ORDERABL ES Final Result Performing Organization Address [facility] de Phone Number [facility] [address] [place] [address] * (ABNORMAL) ELECTROLYTES (02/08/2008 17:12 EDT) Sodium [...] ORDERABL ES Final Result Performing Organization Address [facility] Co de Phone Number [facility] [address] [place] [address] * (ABNORMAL) HEMAGRAM (02/08/2008 17:12 EDT) WBC 3.51(L) 4.6 - 11.2 K/cmm [facility] RBC 5.40(H) 4.50 - 5.30 M/cmm [facility] Hemoglobin 14.0 13.0 - 16.0 gm/dl [facility] HCT 41.2 37.0 - 49.0 % [facility] MCV 76(L) 78 - 98 fl [facility] MCH 25.9 pg [facility] MCHC 34.0 gm/dl [facility] PLT 158 156 - 312 K/cmm [facility] RDW-CV 15.8 % [facility] 02/08/2008 17:1 2 EDT 02/08/2008 17:14 EDT Rui Bazan MD HEMATOLOGY & PF4 ORDERABLES Fi nal Result Performing Organization Address [facility] de Phone Number [facility] [address] [place] [address] * MR HEAD W/WO CONTRAST (11/29/2007 22:06 [...]
--- OUTSIDE RECORDS SUMMARY | 2024-07-22 13:46 | XMS_ITS | Encounter Summary ---
Author Organization [facility] Address [address] [place] [address] Care Team Providers Care Growth Hacker Name Role Phone Unavailable Primary Care Provider Unavailabl e Encounter Details Date Type Department Care Team (Late st Contact Info) Description 08/13/2005 9:56 EST - 08/13/2005 11:59 EST Hospital Encounter [facility] Perioperative Services- [facility] [address] [place], [place] [address] Hilton Álvarez MD [address] [place] [phone] Discharge Disposition: Home or Self Care Social [...] EDT Office Visit [facility] Endocrinology - [facility] [address] [place] [address] Wilder Zaidi, 62 [facility] [address] [place] [address] documented as of this [...] 3 EST 08/13/2005 17:30 EST Skyler Edwards [facility] CHEMISTRY & BL OOD GAS ORDERABLES Final Result [facility] [address] [place] [address] * (ABNORMAL) INSULIN LIKE GROWTH FACTOR I (IGF-1) (08/13/2005 17:03 EST) Insulin-Like GF-1 54Unit: ng/mL(Note) -- EXPECTED VALUES -- ? (Ref Range) 237 to 996 ? Test Performed by: ? [facility] ? [address] [place] [address] ? Engineering Analyst: Hamzah Mcghee M.D. ?(L) [facility] 08/13/2005 17:0 3 EST 08/13/2005 17:30 EST Skyler Edwards MDCM CHEMISTRY & BL OOD GAS ORDERABLES Final Result [facility] [address] [place] [address] * (ABNORMAL) INSULIN-LIKE GROWTH FACTOR BINDING PROTEIN 3 (IGFBP-3), SERUM (08/13/2005 17:03 EST) IGFBP-3 2.6Unit: ug/mL(Note) -- EXPECTED VALUES -- ? (Ref Range) 3.5 to 10 ? Devonte Stages ??Males ?I ? 1.2-6.4 ? II ? 2.8-6.9 ? III ?3.9-9.4 ? IV ? 3.3-8.1 ?V ? 2.7-9.1 ? Test Performed by: ? [facility] ? [address] , [place] [address] ? Engineering Analyst: Hamzah Mcghee M.D. ?(L) [facility] 08/13/2005 17:0 3 EST 08/13/2005 17:30 EST Skyler Von Aburto Grace [facility] CHEMISTRY & BL OOD GAS ORDERABLES Final Result Performing Organization Address [facility] de Phone Number [facility] [address] [place] [address] * T4 FREE (08/13/2005 17:03 EST) Free T4 1.4 0.8 - 1.8 ng/dl [facility] 08/13/2005 17:0 3 EST 08/13/2005 17:30 EST Skyler Edwards [facility] CHEMISTRY & BL OOD GAS ORDERABLES Final Result Performing Organization Address [facility] de Phone Number [facility] [address] [place] [address] * (ABNORMAL) COMPREHENSIVE METABOLIC PANEL (08/13/2005 17:03 EST) Pathologist [facility] Potassium 3.8 3.6 - 5.2 mEq/L [facility] Sodium 134(L) 136 - 145 mEq/L [facility] Chloride 98 96 - 110 mEq/L [facility] CO2 27 24 - 32 mEq/L [facility] Total Alkaline Phosphatase 179 130 - 525 U/L [facility] Bilirubin, Total <0.5 0.0 - 1.4 mg/dl [facility] AST 27 16 - 38 U/L [facility] ALT 66(H) 10 - 45 U/L [facility] Albumin 4.7 3.0 - 5.5 g/dl [facility] Total Protein 7.7 6.3 - 8.6 g/dl [facility] Creatinine 0.6 0.6 - 1.2 mg/dl [facility] BUN 19 8 - 21 mg/dl [facility] Calcium 8.9 8.5 - 10.5 mg/dl [facility] Calculated Calcium 8.6 8.5 - 10.5 mg/dl [facility] Glucose, Serum 82 70 - 110 mg/dl [facility] Fasting? No [facility] Albumin/Globulin Ratio 1.6 [facility] 08/13/2005 17:0 3 EST 08/13/2005 17:30 EST Skyler Edwards [facility] CHEMISTRY & BL OOD GAS ORDERABLES Final Result [facility] [address] [place] [address] documented in this encounter Visit Diagnoses Not on filedocumented in this encounter
--- OUTSIDE RECORDS SUMMARY | 2024-07-22 13:46 | XMS_ITS | Encounter Summary ---
Author Organization [facility] Address [address] [place] [address] Care Team Providers Care Grazing Aide Name Role Phone Corin Skinner MD Primary Care Provider [phone] Encounter Details Date Type Department Care Team (Late st Contact Info) Description 08/13/2006 Before PRISM Converted Visit ([facility]) [facility] - Maple conversion [address] [place] [address] Skyler Edwards [facility] [address] [place] [phone] Social History Tobacco Use Types Packs/Day Years [...] NOTE - 08/13/2006 Kris Drew MD [address] [place] [address] [place] [address] 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 His foster mother, Krissy Wilson, and rn nicu, Edel Jones, accompanied him to the visit. Miguel Angel is now 16 years and2 months old. Miguel Angel was discharged from [facility] in June 2006, and has been in this foster home since that time. While father reportedly still wants to take careof Miguel Angel, his house will need modifications in order to accommodate Miguel Angel's wheelchair. In the interim, he is with his new foster family indefinitely. Miguel Angel is attending [employer] for twohours per day. He receives [...] reportedly been stable since his discharge from [facility]. While she does not measure urine [...] medications. I did receive a call from [facility] in April 2006, at which time [...] exam. I have requested a repeat free [id number] with his next blood draw. He will [...] Skyler Edwards MD 08/28/2006 13:32 Lincoln Edwards, [facility] [id number] James Zimakas, MD Skyler Edwarsd MD Division of Pediatric Endocrinology [phone] - Von Edwards MD P - O1 Job ID: [id number] Document ID: [id number] cc: Kris Drew MD documented in this encounter Plan of Treatment Upcoming Encounters Date Type Department Care Team (Late st Contact Info) Description 10/01/2024 13:40 EDT Office Visit [facility] Endocr[facility]ology - [facility] [address] [place] [address] Wilder Zaidi, DO [address] [facility] [address] [place] [address] documented as of this encounter Visit Diagnoses Not on filedocumented in this encounter Care Teams Grazing Aide Relationship Specialty Start Date End Date Corin Skinner MD [address] [place] [phone] PCP - General 10/24/08 08/21/09 documented as of this encounter
--- OUTSIDE RECORDS SUMMARY | 2024-07-22 13:46 | XMS_ITS | Encounter Summary ---
Author Organization [facility] Address [address] [place] [address] Care Team Providers Care Internal Security Manager Name Role Phone Yan Demarco MD Primary Care Provider Corin Skinner MD Primary Care Provider [phone] Encounter Details Date Type Department Care Team (Late st Contact Info) Description 11/27/2007 Office Visit [facility] - Maple conversion [address] [place] [address] Neo Benitez MD [address] [place] [phone] Social History Tobacco Use Types Packs/Day [...] Addenda for MIGUEL ANGEL BURGOS JR VisitID: [id number] Date: 11/27/2007 11/27/2007 15:41 MARGUERITE ONTIVEROS FROM [...] at 0800 and 1600, colace 1-200mg bid, [id number] mg every 8 hours, niacin 75mg tid, temazepan 30 mg at 1600 daily - last doses given not available on transfer paperwork). --1809 Dinorah Boyd R.N.. History Chief Complaint: (altered mental status). This started today. Roberson-Carter pain scale: 2/10. Treatment ENROLLMENT ELIGIBILITY REPRESENTATIVE: (see transfer paperwork). SOCIAL HX: Nonsmoker. No alcohol use. 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 pt. has around the clock care. Arrived by EMS. Historian: EMS (regional transportation manager). --1809 Dinorah Boyd R.N.. PHYSICAL ASSESSMENT Alert. [...] RR: 10. O2 saturation: 99% room air. quality assurance monitor body, pulse oximeter and NIBPmonitor placed on patient; monitor alarms on. (pt. parents report pt. with brief episode ofhe was gone states pt. eyes rolled back in his head and it was like he wasn't there deny any kind of motor movement or eye movement - this not witnessed by this senior technical writer; pt. is upon assessment at what [...] [facility] (phlebotomy). --0013 Dinorah Boyd R.N. HR: [...] Clara Montiel R.N., R.N., R.N. Lisa Previti E.M.TTrena Castro .M.Trena Escalante R.N. Locked/Released at 11/28/2007 3:51 by Chela Escalante R.N. documented in this encounter Plan of Treatment Upcoming Encounters Date Type Department Care Team (Late st Contact Info) Description 10/01/2024 13:40 EDT Office Visit [facility] Endocrinology - [facility] [address] [place] [address] Wilder Zaidi, 62 [facility] [address] [place] [phone] documented as of this encounter Visit Diagnoses Not on filedocumented in this encounter Care Teams Internal Security Manager Relationship Specialty Start Date End Date Yan Demarco MD [address] [place] [phone] PCP - General 08/22/09 02/20/10 Corin Skinner MD [address] [place] [phone] PCP - General 10/24/08 08/21/09 documented as of this encounter
--- OUTSIDE RECORDS SUMMARY | 2024-07-22 13:46 | XMS_ITS | Encounter Summary ---
Author Organization [facility] Address [address] [place] [address] Care Team Providers Care Farmworker Vegetable Name Role Phone Yan Demarco MD Primary Care Provider Corin Skinner MD Primary Care Provider [phone] Encounter Details Date Type Department Care Team (Late st Contact Info) Description 08/13/2005 Before PRISM Converted Visit (Maple) [facility] - Maple conversion [address] [place] [address] Skyler Edwards [facility] [address] [place] [address] Social History Tobacco Use Types [...] EST August 13, 2005 Kris Drew MD [address] [place] [address] 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 His mother, certified social workers in health care and two members of his care team at [facility] accompanied him to today's visit. Miguel Angel is now 15 years and one month old. This is his first visit back to the clinic since his transfer to the [facility] in [place]. However I have been in frequent contact with his physician, Dr. Ren Read, at the [facility] to address the multiple endocrine issues. Miguel [...] well as his nursing care at the [facility]. He still has no functional vision, has mu ltiple behavioral issues and concern regarding depression for which he is being treated. While the nursing staff is aware of the potential need for stress corticosteroid coverage he has not needed this as he has not had any significant illness since his transfer to the [facility]. I will review Miguel Angel's [...] and vitamin D intake. He should target [id number] mg of elemental calcium and 400 to 800 international units of vitamin D per day. This should be reviewed with his meal miller at [facility]. I will adjust his DDAVP and levothyroxine if needed based on today's results. I will see Miguel Angel againin clinic in six months whether he is still at [facility] or has found a suitable foster home in [place]. Thank you for allowing me to participate in the care of this patient. If you have any further questions or concerns, please do not hesitate to contact me. ADDENDUM: free T4 1.4, sodium 134. No change. Thyroid function neded only be rechecked in 6 months unless any clinical change.. Sincerely, Signed by Skyler Edwards MD 08/16/2005 14:06 Lincoln Edwards, [facility] [id number] James Zimakas, MD Skyler Edwards MD Division of Pediatric Endocrinology [phone] - Skyler Edwards MD P - O1 Job ID: [id number] Document ID: [id number] cc: MD Kris Mccauley MD * [facility], [facility] [place]* Electronically signed by Skyler Edwards [facility] at 08/16/2005 14:06 EST documented in this encounter Plan of Treatment Upcoming Encounters Date Type Department Care Team (Late st Contact Info) Description 10/01/2024 13:40 EDT Office Visit [facility] Endocrinology - [address] [address] Wilder Zaidi, DO [address] [address] documented as of this encounter Visit Diagnoses Not on filedocumented in this encounter Care Teams Farmworker Vegetable Relationship Specialty Start Date End Date Yan Demarco MD [address] [place] [address] PCP - General 08/22/09 02/20/10 Corin Skinner MD [address] [place] [phone] PCP - General 10/24/08 08/21/09 documented as of this encounter
--- OUTSIDE RECORDS SUMMARY | 2024-07-22 13:46 | XMS_ITS | Encounter Summary ---
Author Organization [facility] Address [address] [place] [address] Care Team Providers Care Adjunct Nursing Faculty Name Role Phone Yan Demarco MD Primary Care Provider [phone] Corin Skinner MD Primary Care Provider [phone] Akil Serrano MD Primary Care Provider [phone] Yossi Torres MD Primary Care Provider [phone] Emilee Cody MD Primary Care Provider + Ren Vaz MD Primary Care Provider [phone] Encounter Details Date Type Department Care Team (Late st Contact Info) Description 08/13/2005 Before PRISM Converted Visit (Maple) [facility] Pediatric Neurology - [facility] [address] [place], [place] [address] Hilton Álvarez MD [address] [place] [address] Social History Tobacco Use Types Packs/Day Years Used Date Smoking Tobacco: Never Assessed Sex and Gender Information Value Date Recorded Sex Assigned at Not on file Legal Sex Male 18:35 EST Gender Identity Not on file Sexual Orientation Not on file documented as of this encounter Progress Notes * Ricki, Conv Senior Industrial Engineer - 09/06/20092034 EST DIVISION OF NEUROSURGERY PROGRESS/FOLLOWUP NOTE August 13, 2005 Kris Drew MD [address] [place] [address] [place] [address] Drew: I had the pleasure of following up Miguel Angel Burgos in the pediatric neurosurgery clinic today with hismother, the vp digital marketing social media and crm from your institution, and two of his care attendants at [facility]. Since I saw Miguel Angel last, he [...] Hilton Álvarez MD 08/20/2005 13:44 Carolina Tang ProfessorUniversity of Vermont Medical CenterDivision of Neurological SurgeryHilton Álvarez MD Hilton Álvarez MD Crane Ladle Person [facility] Division of Neurological Surgery - Hilton Álvarez MD P - bb Job ID: [id number] Document ID: [id number] cc: Kris Drew MD documented in this encounter Plan of Treatment Upcoming Encounters Date Type Department Care Team (Late st Contact Info) Description 10/01/2024 13:40 EDT Office Visit [facility] Endocrinology - [place] [address] [place] [address] Wilder Zaidi, DO [address] [place] [address] documented as of this encounter Procedures Procedure Name Priority Date/Time Associated Diagnosis Comments MR HEAD W/WO CONTRAST 08/13/2005 13:23 EST documented in this encounter Results * MR HEAD W/WO CONTRAST (08/13/2005 13:23 EST) Anatomical Region Laterality Modality Other 08/13/2005 13:2 3 EST Narrative 02/03/2009 5:03 EDT PATIENT NEEDS TO BE SENT TO [facility] FOR ANESTHESIA HEADACHES, S/P CRANIOPHOYRGRAM RESECTION [...] 02/03/2009 PATIENT NEEDS TO BE SENT TO [facility] FOR ANESTHESIA HEADACHES, S/P CRANIOPHOYRGRAM RESECTION [...] on filedocumented in this encounter Care Teams Adjunct Nursing Faculty Relationship Specialty Start Date End Date Yan Demarco MD [address] [place] [address] PCP - General 08/22/09 02/20/10 Corin Skinner MD [address] [place] [phone] PCP - General 10/24/08 08/21/09 Akil Serrano MD [address] [place] [phone] PCP - General 02/21/10 04/16/11 Yossi Torres MD [address] [place] [phone] PCP - General 04/17/11 03/14/16 Emilee Cody MD [address] [place] [address] PCP - General 03/15/16 09/29/18 Ren Vaz MD [address] [place] [address] [place] [address] PCP - General 09/30/18 documented as of this encounter
--- OUTSIDE RECORDS SUMMARY | 2024-07-22 13:46 | XMS_ITS | Encounter Summary ---
Author Organization [facility] Address [address] [place] [address] Care Team Providers Care Cigarette Machine Operator Name Role Phone Corin Skinner MD Primary Care Provider Encounter Details Date Type Department Care Team (Late st Contact Info) Description 08/19/2007 Before PRISM Converted Visit (Maple) [facility] - Maple conversion [address] [place] [address] Skyler Edwards [facility] [address] [place] [phone] Social History Tobacco Use Types Packs/Day Years Used Date Smoking Tobacco: Never Assessed Sex and Gender Information Value Date Recorded Sex Assigned at Not on file Legal Sex Male 18:35 EST Gender Identity Not on file Sexual Orientation Not on file documented as of this encounter Progress Notes * Skyler Edwards MD - 05/17/2009 1424 EST PROGRESS/FOLLOWUP NOTE - Yan Demarco M.D. [facility] [address] [place] [address] Street[address] [place] [address] Demarco: I had the pleasure [...] stepmother, aunt, and [facility]. Miguel Angel is now 17 years and 2 months old. Since our last visit, he has needed stress corticosteroid coverage on two occasions; for an upper respiratory tract infection and one gastrointestinal illness but did not require ER visits for these. There have been several significant changes in Miguel Angel's living situation. Parents have moved to [facility], and so Miguel Angel stays with them only on the weekends and stays with his aunt on weekdays so that he may continue to attend the [employer]. Both aunt and stepmother, who are [...] other significant changes from previous. I contacted [facility] to obtain all of the blood [...] he is receiving locally and through the [employer]. I have recommended that a referral be made to Dr. Drew Larson, our lanolin plant operator, who has seen Miguel Angel in the [...] Skyler Edwards MD Division of Pediatric Endocrinology [phone] - Skyler Edwards MD P - YASMINE Job ID: [id number] Doc ID: [id number] cc: MD Yan Mancera MD P - yasmine Job ID: [id number] Doc ID: [id number] cc: MD Yan Mancera MD documented in this encounter Plan of Treatment Upcoming Encounters Date Type Department Care Team (Late st Contact Info) Description 10/01/2024 13:40 EDT Office Visit [facility] Endocrinology - [facility] [address] [place] [address] Wilder Zaidi, [address] [facility] [address] [place] [address] documented as of this encounter Visit Diagnoses Not on filedocumented in this encounter Care Teams Cigarette Machine Operator Relationship Specialty Start Date End Date Corin Skinner MD [address] [place] [phone] PCP - General 10/24/08 08/21/09 documented as of this encounter
--- OUTSIDE RECORDS SUMMARY | 2024-07-22 13:46 | XMS_ITS | Encounter Summary ---
Author Organization [facility] Address [address] [place] [address] Care Team Providers Care Landscape Maintenance Internship Name Role Phone Unavailable Primary Care Provider Unavailabl e Encounter Details Date Type Department Care Team (Late st Contact Info) Description 05/23/2006 7:52 EST - 05/23/2006 11:59 EST Hospital Encounter [facility] Perioperative Services- [facility] [address] [place], [place] [address] Jason Olea MD [address] [facility], [address] [place] [address] Marvin Perez MD [address] [place] [phone] Discharge Disposition: Home or Self Care [...] [facility] Endocrinology - [facility] [address] [place], [place] [id number] Wilder Zaidi, 62 [facility] [address] [place] [address] documented as of this encounter Procedures [...] void ??is seen in the intracranial vessels. [id number] D: ??05/24/2006 11:09 T: ??05/26/2006 17:31 Addendum [...] void is seen in the intracranial vessels. [id number] Addendum Begins MRI of the brain was done with and without IV contrast. Addendum Ends Jason Olea MD [facility] MRI ORDERABLES Final Re sult documented in this encounter Visit Diagnoses Not on filedocumented in this encounter
--- OUTSIDE RECORDS SUMMARY | 2024-07-22 13:46 | XMS_ITS | Encounter Summary ---
Author Organization [facility] Address [address] [place] [address] Care Team Providers Care Reinsurance Claims Analyst Name Role Phone Corin Skinner MD Primary Care Provider [phone] Encounter Details Date Type Department Care Team (Late st Contact Info) Description 02/06/2006 Before PRISM Converted Visit (Maple) [facility] - Maple conversion [address] [place] [address] Skyler Edwards [facility] [address] [place] [phone] Social History Tobacco Use Types Packs/Day Years [...] 02/06/2006 February 06, 2006 Kris Drew MD [address] [place] [address] 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 Members of his nursing team, his manager care management, and his father accompanied him to the [...] take Miguel Angel homewith him to the [place] area. Father lives with his new and several other children. He is in the process of preparing his home for Miguel Angel's return which will likely occur in the next month. Miguel Angel currently remains at the [facility]. Based on review of notes provided by [...] testing when he moves back to the [place] area. His caregivers had questions regarding the [...] Skyler Edwards MD 02/23/2006 22:09 Lincoln Edwards [facility] [id number] James Zimakas, MD Skyler Edawrds MD Division of Pediatric Endocrinology [phone] - Skyler Edwards MD A - O2 Job ID: [id number] Document ID: [id number] cc: MD Kris Mccauley MD *Solitario Ramos MD, [facility], [address] [place] [address]* documented in this encounter Plan of Treatment Upcoming Encounters Date Type Department Care Team (Late st Contact Info) Description 10/01/2024 13:40 EDT Office Visit [facility] Endocrinology - [facility] [address] [place], [place] [phone] Wilder Zaidi, 62 [facility] [address] [place] [phone] documented as of this encounter Visit Diagnoses Not on filedocumented in this encounter Care Teams Reinsurance Claims Analyst Relationship Specialty Start Date End Date Corin Skinner MD [address] [place] [phone] PCP - General 10/24/08 08/21/09 documented as of this encounter
--- OUTSIDE RECORDS SUMMARY | 2024-07-22 13:46 | XMS_ITS | Encounter Summary ---
Author Organization [facility] Address [address] [place] [address] Care Team Providers Care Amusement Park Entertainer Name Role Phone Unavailable Primary Care Provider Unavailabl e Encounter Details Date Type Department Care Team (Late st Contact Info) Description 11/27/2007 19:42 EDT - 11/30/2007 11:59 EDT Hospital Encounter [facility] [address] [place], [place] [address] Florida Enriquez MD MSc [address] [place] [address] Neo Benitez MD [address] [place] [phone] Discharge Disposition: Home or Self Care [...] Jose Lopez MD,PHD ABPN Certified in Neurology [employer] Board Clinical Neurophysiology - Jose Lopez MD,PHD P - LBR Job ID: [id number] Document ID: [id number] cc: Yossi Garcia MD,PhD Jose Lopez MD,PHD P - lbr Job ID: [id number] Document ID: [id number] cc: Yossi Garcia MD,PhD documented in this [...] and neurological impairment. He was admitted to [facility] on November 27, 2007, from an outside hospital with mental status changes and hyponatremia, which has since been corrected. Following his surgery, he has been left with cognitive deficits and has spent considerable time in rehabilitation and is followed by Dr. Feliciano at [facility] for behavioral problems. After talking with his [...] alternate taking care of him. He attends [employer] in [place], [place]. His biological mother two years ago [...] morning to get prepared to go to [employer], his school for the day, and so [...] limited due to his cognitivedeficits. 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 Delavan II: Deferred. 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, diabetes [...] Harris MD A - SS Job ID: [id number] Document ID: [id number] cc: MD Yan Cleveland MD Alisson L Richards, MD Jillian Sullivan, MD Jillian Sullivan, MD documented in this encounter Plan of Treatment Upcoming Encounters Date Type Department Care Team (Late st Contact Info) Description 10/01/2024 13:40 EDT Office Visit [facility] Endocrinology - [address] [address] Wilder Zaidi, DO [address] [place] [address] [address] [place] [address] documented as [...] LAB 11/30/2007 9:10 EDT 11/30/2007 9:30 EDT us Florida Enriquez MD MSc CHEMISTRY & BLOOD GAS ORDERABLES Final Result Performing Organization Address [facility] de Phone Number [facility] [address] [place] [address] * GLUCOSE, GLUCOMETER (11/30/2007 6:14 EDT) Glucose, Fingerstick 70 70 - 100 mg/dl [facility] Real Estate Coordinator ID [id number] Test Performed by Nursing Services [facility] 11/30/2007 6:14 EDT 11/30/2007 23:34 EDT Florida Enriquez MD MSc CHEMISTRY & BLOOD GAS ORDERABLES Final Result Performing Organization Address City/[facility] Co de Phone Number [facility] [address] [place] [address] * SODIUM (11/30/2007 6:00 EDT) Sodium 139 136 - 145 mEq/L [facility] 11/30/2007 6:00 EDT 11/30/2007 7:15 EDT us Florida Enriquez MD MSc CHEMISTRY & BLOOD GAS ORDERABLES Final Result Performing Organization Address City/[facility] Co de Phone Number [facility] [address] [place] [address] * GLUCOSE, SERUM (11/29/2007 18:00 EDT) Glucose, Serum 78 70 - 100 mg/dl [facility] 11/29/2007 18:0 0 EDT 11/29/2007 19:03 EDT us Florida Enriquez MD MSc CHEMISTRY & BLOOD GAS ORDERABLES Final Result Performing Organization Address [facility] de Phone Number [facility] [address] [place] [address] * SODIUM (11/29/2007 18:00 EDT) Sodium 139 136 - 145 mEq/L [facility] 11/29/2007 18:0 0 EDT 11/29/2007 19:03 EDT Florida Enriquez MD MSc CHEMISTRY & BLOOD GAS ORDERABLES Final Result Performing Organization Address [facility] de Phone Number [facility] [address] [place] [address] * GLUCOSE, SERUM (11/29/2007 8:36 EDT) Glucose, Serum 78 70 - 100 mg/dl [facility] 11/29/2007 8:36 EDT 11/29/2007 8:42 EDT us Florida Enriquez MD MSc CHEMISTRY & BLOOD GAS ORDERABLES Final Result Performing Organization Address [facility] de Phone Number [facility] [address] [place] [address] * SODIUM (11/29/2007 8:36 EDT) Sodium 144 136 - 145 mEq/L [facility] 11/29/2007 8:36 EDT 11/29/2007 8:42 EDT Florida Enriquez MD MSc CHEMISTRY & BLOOD GAS ORDERABLES Final Result Performing Organization Address City/[facility]/ZIP Co de Phone Number [facility] [address] [place] [address] * GLUCOSE, SERUM (11/29/2007 3:22 EDT) Glucose, Serum 87 70 - 100 mg/dl [facility] 11/29/2007 3:22 EDT 11/29/2007 3:27 EDT Florida Enriquez MD MSc CHEMISTRY & BLOOD GAS ORDERABLES Final Result Performing Organization Address [facility] Co de Phone Number [facility] [address] [place] [address] * SODIUM (11/29/2007 3:22 EDT) Sodium 141 136 - 145 mEq/L [facility] 11/29/2007 3:22 EDT 11/29/2007 3:27 EDT Florida Enriquez MD MSc CHEMISTRY & BLOOD GAS ORDERABLES Final Result Performing Organization Address [facility] Co de Phone Number [facility] [address] [place] [address] * (ABNORMAL) GLUCOSE, SERUM (11/29/2007 0:23 EDT) Glucose, Serum 101(H) 70 - 100 mg/dl [facility] 11/29/2007 0:23 EDT 11/29/2007 0:23 EDT Florida Enriquez MD MSc CHEMISTRY & BLOOD GAS ORDERABLES Final Result Performing Organization Address [facility] de Phone Number [facility] [address] [place] [address] * SODIUM (11/29/2007 0:23 EDT) Sodium 142 136 - 145 mEq/L [facility] 11/29/2007 0:23 EDT 11/29/2007 0:23 EDT Florida Enriquez MD MSc CHEMISTRY & BLOOD GAS ORDERABLES Final Result Performing Organization Address [facility] Co de Phone Number [facility] [address] [place] [address] * SODIUM (11/28/2007 16:00 EDT) Sodium 143 136 - 145 mEq/L [facility] 11/28/2007 16:0 0 EDT 11/28/2007 21:30 EDT Florida Enriquez MD MSc CHEMISTRY & BLOOD GAS ORDERABLES Final Result Performing Organization Address [facility] Phone Number [facility] [address] [place] [address] * GLUCOSE, SERUM (11/28/2007 12:00 EDT) Glucose, Serum 73 70 - 100 mg/dl [facility] 11/28/2007 12:0 0 EDT 11/28/2007 12:12 EDT Florida Enriquez MD MSc CHEMISTRY & BLOOD GAS ORDERABLES Final Result Performing Organization Address [facility] Phone Number [facility] [address] [place] [address] * PHOSPHORUS (11/28/2007 12:00 EDT) Phosphorus 4.6 2.7 - 4.7 mg/dl [facility] 11/28/2007 12:0 0 EDT 11/28/2007 12:12 EDT Florida Enriquez MD MSc CHEMISTRY & BLOOD GAS ORDERABLES Final Result Performing Organization Address [facility] de Phone Number [facility] [address] [place] [address] * MAGNESIUM (11/28/2007 12:00 EDT) Magnesium 1.9 1.7 - 2.8 mg/dl [facility] 11/28/2007 12:0 0 EDT 11/28/2007 12:12 EDT Florida Enriquez MD MSc CHEMISTRY & BLOOD GAS ORDERABLES Final Result Performing Organization Address [facility] de Phone Number [facility] [address] [place] [address] * ELECTROLYTES (11/28/2007 12:00 EDT) Pathologist [facility] Sodium 137 136 - 145 mEq/L [facility] Potassium 4.2 3.5 - 5.0 mEq/L [facility] Chloride 99 96 - 110 mEq/L [facility] CO2 26 24 - 32 mEq/L [facility] 11/28/2007 12:0 0 EDT 11/28/2007 12:12 EDT Florida Enriquez MD MSc CHEMISTRY & BLOOD GAS ORDERABLES Final Result Performing Organization Address [facility] de Phone Number [facility] [address] [place] [address] * (ABNORMAL) HEMAGRAM AND DIFFERENTIAL (11/28/2007 12:00 EDT) Pathologist [facility] WBC 3.60(L) 4.6 - 11.2 K/cmm [facility] RBC 5.56(H) 4.50 - 5.30 M/cmm [facility] Hemoglobin 14.2 13.0 - 16.0 gm/dl [facility] HCT 41.6 37.0 - 49.0 % [facility] MCV 75(L) 78 - 98 fl [facility] MCH 25.6 pg [facility] [...] [facility] ABS Monocytes 0.36 K/cmm [facility] RBC Morphology 1+ Anisocytosis 1+ Microcytes [facility] Type of Diff: Manual [facility] 11/28/2007 12:0 0 EDT 11/28/2007 12:12 EDT Florida Enriquez MD MSc PACKAGES & DNA PRO BE ORDERABLES Final Result Performing Organization Address [facility] Co de Phone Number [facility] [address] [place] [address] * CALCIUM (11/28/2007 12:00 EDT) Calcium 9.4 8.5 - 10.5 mg/dl [facility] Calculated Calcium 9.1 8.5 - 10.5 mg/dl [facility] 11/28/2007 12:0 0 EDT 11/28/2007 12:12 EDT Florida Enriquez MD MSc CHEMISTRY & BLOOD GAS ORDERABLES Final Result Performing Organization Address [facility] de Phone Number [facility] [address] [place] [address] * TESTS ADDED BY PHONE (11/28/2007 12:00 EDT) Tests to be added NA [facility] Who Called [facility] FOR DR. SHAKIR [facility] Location Code B5 [facility] 11/28/2007 12:0 0 EDT 11/28/2007 12:12 EDT Florida Enriquez MD MSc CHEMISTRY & BLOOD GAS ORDERABLES Final Result Performing Organization Address [facility] de Phone Number [facility] [address] [place] [address] * SODIUM (11/28/2007 8:15 EDT) Sodium 138 136 - 145 mEq/L [facility] 11/28/2007 8:15 EDT 11/28/2007 8:52 EDT us Florida Enriquez MD MSc CHEMISTRY & BLOOD GAS ORDERABLES Final Result Performing Organization Address [facility] Phone Number [facility] [address] [place] [address] * GLUCOSE, SERUM (11/28/2007 4:15 EDT) Glucose, Serum 79 70 - 100 mg/dl [facility] 11/28/2007 4:15 EDT 11/28/2007 4:22 EDT Florida Enriquez MD MSc CHEMISTRY & BLOOD GAS ORDERABLES Final Result Performing Organization Address [facility] Phone Number [facility] [address] [place] [address] * (ABNORMAL) SODIUM (11/28/2007 4:15 EDT) Sodium 135(L) 136 - 145 mEq/L [facility] 11/28/2007 4:15 EDT 11/28/2007 4:22 EDT us Florida Enriquez MD MSc CHEMISTRY & BLOOD GAS ORDERABLES Final Result Performing Organization Address [facility] Phone Number [facility] [address] [place] [address] * CT HEAD WO CONTRAST (11/28/2007 2:42 [...] changes as described. us Neo Benitez MD IM CT ORDERABLES Final Resu lt * ELECTROLYTES (11/28/2007 0:10 EDT) Sodium 136 136 - 145 mEq/L [facility] Potassium 4.5 3.5 - 5.0 mEq/L [facility] Chloride 101 96 - 110 mEq/L [facility] CO2 25 24 - 32 mEq/L [facility] 11/28/2007 0:10 EDT 11/28/2007 0:13 EDT Florida Enriquez MD MSc CHEMISTRY & BLOOD GAS ORDERABLES Final Result Performing Organization Address [facility] de Phone Number [facility] [address] [place] [address] * GLUCOSE, GLUCOMETER (11/27/2007 23:47 EDT) Glucose, Fingerstick 80 70 - 100 mg/dl [facility] Real Estate Coordinator ID [id number] Test Performed by Nursing Services [facility] 11/27/2007 23:4 7 EDT 11/27/2007 23:48 EDT Florida Enriquez MD, MSc CHEMISTRY & BLOOD GAS ORDERABLES Final Result Performing Organization Address [facility] de Phone Number [facility] [address] [place] [address] * (ABNORMAL) GLUCOSE, GLUCOMETER (11/27/2007 18:32 EDT) Glucose, Fingerstick 52(L) 70 - 100 mg/dl [facility] Real Estate Coordinator ID [id number] Test Performed by Nursing Services [facility] 11/27/2007 18:3 2 EDT 11/27/2007 23:48 EDT Florida Enriquez MD MSc CHEMISTRY & BLOOD GAS ORDERABLES Final Result Performing Organization Address [facility] de Phone Number [facility] [address] [place] [address] documented in this encounter Visit Diagnoses Not on filedocumented in this encounter
--- OUTSIDE RECORDS SUMMARY | 2024-07-22 13:46 | XMS_ITS | Encounter Summary ---
Author Organization [facility] Address [address] [place] [address] Care Team Providers Care New Accounts Clerk Name Role Phone Unavailable Primary Care Provider Unavailabl e Encounter Details Date Type Department Care Team (Latest Contact Info) Description 05/15/2007 6:45 EST - 05/15/2007 11:59 EST Hospital Encounter [facility] Perioperative Services- [facility] [address] [place], [place] [address] Marvin Perez MD [address] [place] [phone] Discharge Disposition: Home or Self Care Social [...] Visit [facility] Endocrinology - [facility] [address] [place] [address] Wilder Zaidi, 62 [facility] [address] [place] [address] documented as of this encounter [...]
--- OUTSIDE RECORDS SUMMARY | 2024-07-22 13:46 | XMS_ITS | Encounter Summary ---
Author Organization [facility] Address [address] [place] [address] Care Team Providers Care Outside Event Sales Specialist Name Role Phone Corin Skinner MD Primary Care Provider [phone] Encounter Details Date Type Department Care Team (Late st Contact Info) Description 02/11/2007 Before PRISM Converted Visit (Maple) [facility] - Maple conversion [address] [place] [address] Skyler Edwards [facility] [address] [place] [phone] Social History Tobacco Use Types Packs/Day Years [...] - February 11, 2007 Ren Lynch MD [address], [address] [place] [address] Lynch: I had the pleasure [...] Skyler Edwards MD 02/13/2007 14:11 [place] Edwards [facility] [phone] James Zimakas, [facility] Von Edwards, [facility] [phone] Skyler Edwards MD Division of Pediatric Endocrinology [phone] Pamerrick Edwards MD P - YASMINE Job ID: [id number] Doc ID: [id number] cc: Ren Lynch MD - Skyler Edwards MD P - yasmine Job ID: [id number] Doc ID: [id number] cc: MD Kris Ricks MD documented in this encounter Plan of Treatment Upcoming Encounters Date Type Department Care Team (Late st Contact Info) Description 10/01/2024 13:40 EDT Office Visit [facility] Endocrinology - [facility] [address] [place], [place] [phone] Wilder Zaidi, [address] [phone] documented as of this encounter Visit Diagnoses Not on filedocumented in this encounter Care Teams Outside Event Sales Specialist Relationship Specialty Start Date End Date Corin Skinner MD [address] [place] [phone] PCP - General 10/24/08 08/21/09 documented as of this encounter
--- OUTSIDE RECORDS SUMMARY | 2024-07-22 13:46 | XMS_ITS | Encounter Summary ---
Author Organization [facility] Address [address] [place] [address] Care Team Providers Care Marble Ceiling Installer Name Role Phone Unavailable Primary Care Provider Unavailabl e Encounter Details Date Type Department Care Team (Late st Contact Info) Description 02/06/2006 11:26 EDT Hospital Encounter [facility] [address] [place] [address] [facility] [address] [place] [phone] Social History Tobacco Use Types Packs/Day Years [...] Info) Description 10/01/2024 13:40 EDT Office Visit [place] Endocrinology - [facility] [address] [place] [address] Wilder Zaidi, DO 62 [facility] [address] [place] [address] documented as of this encounter Visit Diagnoses Not on filedocumented in this encounter
--- OUTSIDE RECORDS SUMMARY | 2024-07-22 13:46 | XMS_ITS | Encounter Summary ---
Author Organization [facility] Address [address] [place] [address] Care Team Providers Care Software Engineer Name Role Phone Corin Skinner MD Primary Care Provider [phone] Encounter Details Date Type Department Care Team (Late st Contact Info) Description 05/23/2006 Before PRISM Converted Visit (Maple) [facility] - Maple conversion [address] [place] [address] Marvin Perez MD [address] [place] [phone] Social History Tobacco Use Types Packs/Day [...] 05/23/2006 May 23, 2006 Kris Drew MD [address] [place] [phone] Drew: Miguel Angel Burgos was [...] an [place] a half south of [place], [place] and this is quite a trip for him to make. He and his family would like to considereither going to [place] or [place] for followup but I would also be [...] Perez MD 06/02/2006 10:50 Anastasiya Perez MDAssociate ProfessorNorthwestern Medical CenterDivision of Neurological SurgeryMarvin Perez MD Marvin Perez MD Pony Rougher [facility] Division of Neurological Surgery - Sunni Perez MD P - bb Job ID: [id number] Document ID: [id number] cc: Kris Drew MD documented in this encounter Plan of Treatment Upcoming Encounters Date Type Department Care Team (Late st Contact Info) Description 10/01/2024 13:40 EDT Office Visit [facility] Endocrinology - [facility] [address] [place] [address] Wilder Zaidi, DO 62 [facility] [address] [place] [phone] documented as of this encounter Visit Diagnoses Not on filedocumented in this encounter Care Teams Software Engineer Relationship Specialty Start Date End Date Corin Skinner MD [address] [place] [phone] PCP - General 10/24/08 08/21/09 documented as of this encounter
--- OUTSIDE RECORDS SUMMARY | 2024-07-22 13:46 | XMS_ITS | Encounter Summary ---
Author Organization [facility] Address [address] [place] [address] Care Team Providers Care Anthropology Department Chair Name Role Phone Yan Demarco MD Primary Care Provider Corin Skinner MD Primary Care Provider Akil Serrano MD Primary Care Provider [phone] Encounter Details Date Type Department Care Team (Late st Contact Info) Description 11/27/2007 Results Only [facility] - Maple conversion [address] [place], [place] [address] Emergency, MD Diya Social History Tobacco Use [...] Info) Description 10/01/2024 13:40 EDT Office Visit [facility] Endocrinology - [facility] [address] [place], [place] [phone] Wilder Zaidi, 62 [facility] [address] [place] [phone] documented as of this encounter [...] Glucose, Serum 64(L) 70 - 100 mg/dl [facility] 11/27/2007 18:2 0 EDT 11/27/2007 18:51 EDT us Default Emergency MD CHEMISTRY & BLOOD GAS ORDER LYNDSEY Final Result Performing Organization Address [facility] Co de Phone Number [facility] [address] [place] [address] * (ABNORMAL) ELECTROLYTES (11/27/2007 18:20 EDT) Sodium 129(L) 136 - 145 mEq/L [facility] Potassium 4.7 3.5 - 5.0 mEq/L [facility] Chloride 92(L) 96 - 110 mEq/L [facility] CO2 27 24 - 32 mEq/L [facility] 11/27/2007 18:2 0 EDT 11/27/2007 18:51 EDT us Default Emergency MD CHEMISTRY & BLOOD GAS ORDER LYNDSEY Final Result Performing Organization Address City/[facility]/ZIP Co de Phone Number [facility] [address] [place] [address] * T4 FREE (11/27/2007 18:20 EDT) [facility] Free T4 0.9 0.8 - 1.5 ng/dL [facility] 11/27/2007 18:2 0 EDT 11/27/2007 18:51 EDT Default Emergency MD CHEMISTRY & BLOOD GAS ORDER LYNDSEY Final Result Performing Organization Address City/[facility]/ZIP Co de Phone Number [facility] [address] [place] [address] * CREATININE (11/27/2007 18:20 EDT) [facility] Creatinine 0.60 0.6 - 1.2 mg/dl [facility] GFR, Calculated Age <18 ml/min/1.7 3m2 [facility] 11/27/2007 18:2 0 EDT 11/27/2007 18:51 EDT us Default Emergency MD CHEMISTRY & BLOOD GAS ORDER LYNDSEY Final Result Performing Organization Address City/[facility] Co de Phone Number [facility] [address] [place] [address] * (ABNORMAL) HEMAGRAM AND DIFFERENTIAL (11/27/2007 18:20 EDT) [facility] WBC 4.74 4.6 - 11.2 K/cmm [facility] RBC 5.57(H) 4.50 - 5.30 M/cmm [facility] Hemoglobin 14.2 13.0 - 16.0 gm/dl [facility] HCT 41.1 37.0 - 49.0 % [facility] MCV 74(L) 78 - 98 fl [facility] MCH 25.5 pg [facility] MCHC 34.7 gm/dl [facility] PLT 199 156 - 312 K/cmm [facility] RDW-CV 17.2 % [facility] Neutrophils 45.0 % [facility] Lymphocytes 43.0 % [facility] Monocytes 12.0 % [facility] ABS Neutrophils 2.13 K/cmm [facility] ABS Lymphs 2.04 K/cmm [facility] ABS Monocytes 0.57 K/cmm [facility] RBC Morphology 1+ Anisocytosis 1+ Microcytes 1+ Poikilocytosis 1+ Ovalocytes [facility] Type of Diff: Manual [facility] 11/27/2007 18:2 0 EDT 11/27/2007 18:51 EDT us Default Emergency MD PACKAGES & DNA PROBE ORDERA BLES Final Result Performing Organization Address City/[facility]/ZIP Co de Phone Number [facility] [address] [place] [address] * BUN (11/27/2007 18:20 EDT) BUN 9 8 - 21 mg/dl [facility] 11/27/2007 18:2 0 EDT 11/27/2007 18:51 EDT us Default Emergency MD CHEMISTRY & BLOOD GAS ORDER LYNDSEY Final Result Performing Organization Address [facility]/ZIP Co de Phone Number [facility] [address] [place] [address] * TESTS ADDED BY PHONE (11/27/2007 18:20 EDT) Tests to be added STAT SGL [facility] Who Called [facility] Location Code Emergency Department [facility] 11/27/2007 18:2 0 EDT 11/27/2007 18:51 EDT us Default Emergency MD CHEMISTRY & BLOOD GAS ORDER LYNDSEY Final Result Performing Organization Address [facility] Co de Phone Number [facility] [address] [place] [address] * TESTS ADDED BY PHONE (11/27/2007 18:20 EDT) Tests to be added FT4 [facility] Who Called GRIC[facility] Location Code Emergency Department [facility] 11/27/2007 18:2 0 EDT 11/27/2007 18:51 EDT us Default Emergency CHEMISTRY & BLOOD GAS ORDER LYNDSEY Final Result [facility] [address] [place] [address] documented in this encounter Visit Diagnoses Not on filedocumented in this encounter Care Teams Anthropology Department Chair Relationship Specialty Start Date End Date Yan Demarco MD [address] [place] [phone] PCP - General 08/22/09 02/20/10 Corin Skinner MD [address] [place] [phone] PCP - General 10/24/08 08/21/09 Akil Serrano MD [address] [place] [address],[facility] [address] [place] [address] PCP - General 02/21/10 04/16/11 documented as of this encounter
--- OUTSIDE RECORDS SUMMARY | 2024-07-22 13:46 | XMS_ITS | Encounter Summary ---
Author Organization [facility] Address [address] [place] [address] Care Team Providers Care Psychiatric Security Nurse Name Role Phone Unavailable Primary Care Provider Unavailabl e Encounter Details Date Type Department Care Team (Late st Contact Info) Description 08/19/2007 9:10 EST [facility] [address] [place] [address] [facility] [address] [place] [phone] Social History Tobacco Use Types Packs/Day Years [...] [facility] End[facility] - [facility] [address] [place] [address] Wilder Zaidi, DO [address] [facility] [address] [place] [address] documented as of this encounter Visit Diagnoses Not on filedocumented in this encounter
--- OUTSIDE RECORDS SUMMARY | 2024-07-22 13:46 | XMS_ITS | Encounter Summary ---
Author Organization [facility] Address [address] [place] [address] Care Team Providers Care Asphalt Smoother Name Role Phone Unavailable Primary Care Provider Unavailabl e Encounter Details Date Type Department Care Team (Late st Contact Info) Description 08/13/2006 12:57 EST [facility] [address] [place] [address] [facility] [address] [place] [phone] Social History Tobacco Use Types Packs/Day Years [...] Info) Description 10/01/2024 13:40 EDT Office Visit [facility] Endocrinology - [facility] [address] [place] [address] Wilder Zaidi, DO 62 [facility] [address] [place] [address] documented as of this encounter Visit Diagnoses Not on filedocumented in this encounter
--- OUTSIDE RECORDS SUMMARY | 2024-07-22 13:47 | XMS_ITS | Encounter Summary ---
Author Organization [facility] Address [address] [place] [address] Care Team Providers Care Meal Grinder Tender Name Role Phone Yan Demarco MD Primary Care Provider Corin Skinner MD Primary Care Provider Akil Serrano MD Primary Care Provider [phone] Encounter Details Date Type Department Care Team (Late st Contact Info) Description 11/21/2004 Before PRISM Converted Visit (Maple) [facility] - Maple conversion [address] [place], [place] [address] Raleigh Angelo MD [address] [phone] Social History Tobacco Use Types Packs/Day Years [...] HISTORY: The patient lives withhis mother in [place], [place]. His mother has endstage renal disease [...] 11/22/2004 15:57:53 - re Voice ID - [id number] Document ID - [id number] cc: KYLIE TREJO MD, REQUESTING PHYSICIAN ADE [...] 11/22/2004 15:57:53 - re Voice ID - [id number] Document ID - [id number] cc: ADE MALLOY MD, REFERRING PHYSICIAN TOO DIAZ MD, PRIMARY CARE PHYSICIAN KYLIE TREJO MD, REQUESTING PHYSICIAN documented in this encounter Plan of Treatment Upcoming Encounters Date Type Department Care Team (Late st Contact Info) Description 10/01/2024 13:40 EDT Office Visit [facility] Endocrinology - [address] [place] [phone] Wilder Zaidi, 62 [facility] [address] [place] [address] documented as of this encounter Visit Diagnoses Not on filedocumented in this encounter Care Teams Meal Grinder Tender Relationship Specialty Start Date End Date Yan Demarco MD [address] [place] [phone] PCP - General 08/22/09 02/20/10 Corin Skinner MD [address] [place] [phone] PCP - General 10/24/08 08/21/09 Akil Serrano MD [address] [address] [place] [address] PCP - General 02/21/10 04/16/11 documented as of this encounter
--- OUTSIDE RECORDS SUMMARY | 2024-07-22 13:47 | XMS_ITS | Encounter Summary ---
Author Organization [facility] Address [address] [place] [address] Care Team Providers Care Social Media Job Titles Name Role Phone Yan Demarco MD Primary Care Provider [phone] Corin Skinner MD Primary Care Provider [phone] Akil Serrano MD Primary Care Provider [phone] Encounter Details Date Type Department Care Team (Late st Contact Info) Description 11/27/2004 Before PRISM Converted Visit (Maple) [facility] - Maple conversion [address] [place] [address] Allison Alarcon MD [address] [place] [phone] Social History Tobacco Use Types Packs/Day Years [...] working on being able to establish transfer [facility] to [facility]. Team supports, at this point, that we are probably looking at making that transition towards the end of next week on December 07. Teams concerns reviewed in terms of moms interaction and participation and how to work with her around this. Also additional extended discussion with [employer] regarding best modes of communication and management [...] - ALLISON ALARCON MD /lr Voice ID: [id number] Doc ID: [id number] Continues to be appropriate for acute inpatient rehab. 2. We will trial an increase of amantadine. 3. Continue present water intake. 4. Will follow up with Dr. Edwards regarding TSH results. (Total time 45 minutes, greater than 50% direct discussion and review with mom and care coordination with team on aboveissues.) - ALLISON ALARCON MD /lr Voice ID: [id number] Doc ID: [id number] documented in this encounter Plan of Treatment Upcoming Encounters Date Type Department Care Team (Late st Contact Info) Description 10/01/2024 13:40 EDT Office Visit [facility] Endocrinology - [facility] [address] [place] [address] Dejuan Wilderritchie Valencia, [address] [facility] [address] [place] [address] documented as of this encounter Visit Diagnoses Not on filedocumented in this encounter Care Teams Social Media Job Titles Relationship Specialty Start Date End Date Yan Demarco MD [address] [place] [address] PCP - General 08/22/09 02/20/10 Corin Skinner MD [address] [place] [phone] PCP - General 10/24/08 08/21/09 Akil Serrano MD 74 [facility] [address] [place] [address] PCP - General 02/21/10 04/16/11 documented as of this encounter
--- OUTSIDE RECORDS SUMMARY | 2024-07-22 13:47 | XMS_ITS | Encounter Summary ---
Author Organization [facility] Address [address] [place] [address] Care Team Providers Care Continuous Mining Machine [employer] Miner Name Role Phone aYn Demarco MD Primary Care Provider Corin Skinner MD Primary Care Provider [phone] Akil Serrano MD Primary Care Provider [phone] Encounter Details Date Type Department Care Team (Late st Contact Info) Description 12/05/2004 Before PRISM Converted Visit (Maple) [facility] - Maple conversion [address] [place] [address] Allison Alarcon MD [address] [place] [phone] Social History Tobacco Use Types Packs/Day Years [...] - ALLISON ALARCON MD /re Voice ID: [id number] Doc ID: [id number] [facility] - ALLISON ALARCON MD /re Voice ID: [id number] Doc ID: [id number] documented in this encounter Plan of Treatment Upcoming Encounters Date Type Department Care Team (Late st Contact Info) Description 10/01/2024 13:40 EDT Office Visit [facility] Endocrinology - [facility] [address] [place], [place] [phone] Wilder Zaidi, 62 [facility] [address] [place] [address] documented as of this encounter Visit Diagnoses Not on filedocumented in this encounter Care Teams Continuous Mining Machine Company Miner Relationship Specialty Start Date End Date Yan Demarco MD [address] [place] [address] PCP - General 08/22/09 02/20/10 Corin Skinner MD [address] [place] [phone] PCP - General 10/24/08 08/21/09 kAil Serrano MD 74 [facility] [address] [place], [place] [phone] PCP - General 02/21/10 04/16/11 documented as of this encounter
--- OUTSIDE RECORDS SUMMARY | 2024-07-22 13:47 | XMS_ITS | Encounter Summary ---
Author Organization [facility] Address [address] [place] [address] Care Team Providers Care Organic Extractions Technician Name Role Phone Yan Demarco MD Primary Care Provider [phone] Corin Skinner MD Primary Care Provider Akil Serrano MD Primary Care Provider [phone] Encounter Details Date Type Department Care Team (Late st Contact Info) Description 11/29/2004 Before PRISM Converted Visit (Maple) [facility] - Maple conversion [address] [place], [place] [address] Raleigh Angelo MD [address] [phone] Social History Tobacco Use Types Packs/Day Years [...] - RALEIGH ANGELO MD /re Voice ID: [id number] Doc ID: [id number] oring electrolytes, now on an every other day schedule. - RALEIGH ANGELO MD /re Voice ID: [id number] Doc ID: [id number] documented in this encounter Plan of Treatment Upcoming Encounters Date Type Department Care Team (Late st Contact Info) Description 10/01/2024 13:40 EDT Office Visit [facility] Endocrinology - [facility] [address] [place] [address] Wilder Zaidi, [address] [facility] [address] [place] [address] documented as of this encounter Visit Diagnoses Not on filedocumented in this encounter Care Teams Organic Extractions Technician Relationship Specialty Start Date End Date Yan Demarco MD [address] [place] [phone] PCP - General 08/22/09 02/20/10 Corin Skinner MD [address] [place] [phone] PCP - General 10/24/08 08/21/09 Akil Serrano MD [address] [place] [address] PCP - General 02/21/10 04/16/11 documented as of this encounter
--- OUTSIDE RECORDS SUMMARY | 2024-07-22 13:47 | XMS_ITS | Encounter Summary ---
Author Organization [facility] Address [address] [place] [address] Care Team Providers Care Electroencephalograph Technologist Name Role Phone Unavailable Primary Care Provider Unavailabl e Encounter Details Date Type Department Care Team (Latest Contact Info) Description 11/20/2004 12:11 EDT - 12/31/2004 11:59 EDT Hospital Encounter [facility] Rehabilitation Therapy Unit Level 2 [address] [place] [address] Allison Alarcon MD [address] [place] [id number] [facility] Social History [...] triglyceride was repeated and continued to be [id number]. The patient was seen further in evaluation [...] Alarcon MD A - LR Job ID: [id number] Document ID: [id number] cc: MD Kris Mccauley MD Christa M Zehle, MD Paul James Zimakas, MD [address] \* MERGEFORMAT Acosta Enriquez MD A - ck Job ID: [id number] Document ID: [id number] cc: MD Acosta Oakley MD Carol L Thayer, [place] [id number] \* MERGEFORMAT Krissy Chamberlain MD D: - Krissy Chamberlain MD P - mo Job ID: Document ID: [id number] cc: Marvin Hernandez MD [facility], [email or web address] documented in this encounter Discharge Disposition Disposition [...] Alarcon MD A - mt Job ID: [id number] Document ID: [id number] cc: 29 [id number] * Allison Alarcon MD - 12/30/2004 0000 [...] Alarcon MD P - lr Job ID: [id number] Document ID: [id number] cc: * Allison Alarcon [...] Alarcon MD P - re Job ID: [id number] Document ID: [id number] cc: * Wicho Carlton [...] Carlton MD P - lr Job ID: [id number] Document ID: [id number] cc: * Allison Alarcon [...] Alarcon MD A - mt Job ID: [id number] Document ID: [id number] cc: bkmk * Allison Alarcon MD - 12/26/2004 0000 EDT INPATIENT PROGRESS NOTE PT LOC: F002 Service Date: 12/26/2004 DIAGNOSIS: Status post CVAs, status post craniopharyngioma resection. SUBJECTIVE: Patient seeming more restless this morning. 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 SUBJECTIVE: [place] team has been noting excellent gains in [...] Alarcon MD P - chelle Job ID: [id number] Document ID: [id number] cc: le * Wicho [...] Carlton MD P - re Job ID: [id number] Document ID: [id number] cc: 24 * Wicho [...] Carlton MD A - mo Job ID: [id number] Document ID: [id number] cc: 6 * Wicho [...] Dr. Castañeda. I also discussed case with [facility] morning and OT aides. Signed by Wicho Carlton MD 12/21/2004 15:23 Nadine Garcia MD Wicho Carlton MD - Wicho Carlton MD A - mo Job ID: [id number] Document ID: [id number] cc: [email or web address] * [place] [...] Castañeda MD P - lr Job ID: [id number] Document ID: [id number] cc: * Wicho Carlton [...] dictated a letter this morning for social media project manager to assist with placement into a subacute [...] Carlton MD P - mo Job ID: [id number] Document ID: [id number] cc: [id number] * [place] Castañeda MD - 12/20/2004 0000 [...] Castañeda MD P - mo Job ID: [id number] Document ID: [id number] cc: P, hyd * [...] Carlton MD P - ss Job ID: [id number] Document ID: [id number] cc: [id number] * [place] [...] Castañeda MD A - mt Job ID: [id number] Document ID: [id number] cc: * [place] Castañeda [...] Castañeda MD P - MO Job ID: [id number] Document ID: [id number] cc: * Wicho Carlton MD - 12/18/2004 9764 EDT INPATIENT PROGRESS NOTE PT LOC: F002 [...] Carlton MD P - mo Job ID: [id number] Document ID: [id number] cc: g * [place] [...] Castañeda MD P - mt Job ID: [id number] Document ID: [id number] cc: inst * Wicho [...] Carlton MD P - MT Job ID: [id number] Document ID: [id number] cc: * [place] Castañeda [...] Castañeda MD P - mt Job ID: [id number] Document ID: [id number] cc: * Drew Larson [...] Larson MD P - lr Job ID: [id number] Document ID: [id number] cc: [id number] * Drew Larson MD - 12/15/2004 1939 [...] Larson MD P - lr Job ID: [id number] Document ID: [id number] cc: [facility] CC * Allison Alarcon MD - 12/15/2004 [...] Alarcon MD A - re Job ID: [id number] Document ID: [id number] cc: *st * Allison Alarcon MD - 12/14/2004 6197 EDT INPATIENT PROGRESS NOTE PT LOC: F002 [...] Alarcon MD P - re Job ID: [id number] Document ID: [id number] cc: [id number]??? * Wicho [...] Carlton MD P - mh Job ID: [id number] Document ID: [id number] cc: kend I * [...] Castañeda MD A - re Job ID: [id number] Document ID: [id number] cc: 24 * [place] [...] Castañeda MD P - ss Job ID: [id number] Document ID: [id number] cc: * [place] Castañeda [...] Castañeda MD P - ss Job ID: [id number] Document ID: [id number] cc: 2 * Allison [...] Consider increasing free water. 2. Supervision on legal advisor decreased to frequent checks. Continue 1:1 with other shifts. (40 minutes total time, greater than 50% care coordination with team and discussion and education with family). Signed by Allison Alarcon MD 12/12/2004 23:51 Sky Hollingsworth MD Allison Alarcon MD - Allison Alarcon MD P - ss Job ID: [id number] Document ID: [id number] cc: t ID: * [...] Castañeda MD A - ss Job ID: [id number] Document ID: [id number] cc: 80 documented in this encounter Plan of Treatment Upcoming Encounters Date Type Department Care Team (Late st Contact Info) Description 10/01/2024 13:40 EDT Office Visit [facility] Endocrinology - [place] [address] [place] [address] Wilder Zaidi, DO [address] [place] [address] documented as of this [...] Doppler interrogation could not be performed adequately. /[facility] Narrative 03/02/2009 14:19 EDT POST OP CVA [...] Doppler interrogation could not be performed adequately. /[facility] us Ermelinda Lee MD IM US ORDERABLES Final Resul t * (ABNORMAL) SODIUM (12/02/2004 16:30 EDT) Sodium 134(L) 136 - 145 mEq/L [facility] 12/02/2004 16:3 0 EDT 12/02/2004 16:36 EDT us Allison Alarcon MD CHEMISTRY & BLOOD GAS ORDERA BLES Final Result [facility] [address] [place] [address] * BUN (12/02/2004 16:30 EDT) BUN 17 8 - 21 mg/dl [facility] 12/02/2004 16:3 0 EDT 12/02/2004 16:36 EDT us Allison Alarcon MD CHEMISTRY & BLOOD GAS ORDERA BLES Final Result [facility] [address] [place] [address] * CT HEAD WO CONTRAST (11/29/2004 14:39 [...] D 11/29/04 T 12/03/04 /vicky Procedure Note AlsofrJose Armando noel MD - 03/02/2009 H/O CONTINUED SIG DEFICITS, [...] future is suggested. D 11/29/04 T 12/03/04 /jl Jodi Parr MD IMG CT ORDERABLES Final Result * SODIUM (11/29/2004 6:25 EDT) Sodium 137 136 - 145 mEq/L [facility] Comment:Performed at [place], [place] 11/29/2004 6:25 EDT 11/29/2004 6:36 EDT Allison Alarcon MD CHEMISTRY & BLOOD GAS ORDERA BLES Final Result [facility] [address] [place] [address] * BUN (11/29/2004 6:25 EDT) BUN 18 8 - 21 mg/dl [facility] Comment:Performed at [place], [place] 11/29/2004 6:25 EDT 11/29/2004 6:36 EDT Allison Alarcon MD CHEMISTRY & BLOOD GAS ORDERA BLES Final Result Performing Organization Address City/[facility]/ZIP Co de Phone Number [facility] [address] [place] [address] * C. DIFFICILE TOXIN (11/28/2004 13:30 EDT) Specimen Description Feces [facility] Result No C.difficil e toxin A or toxin B detected. [facility] Report Status Final [id number] [facility] 11/28/2004 13:3 0 EDT 11/28/2004 16:20 EDT Allison Alarcon MD MICROBIOLOGY - GENERAL ORDER LYNDSEY Final Result Performing Organization Address [facility] Co de Phone Number [facility] [address] [place] [address] * (ABNORMAL) SODIUM (11/28/2004 12:20 EDT) Sodium 134(L) 136 - 145 mEq/L [facility] Comment:Performed at [facility], [place], [place] 11/28/2004 12:2 0 EDT 11/28/2004 12:41 EDT Allison Alarcon MD CHEMISTRY & BLOOD GAS ORDERA BLES Final Result Performing Organization Address [facility] Co de Phone Number [facility] [address] [place] [address] * BUN (11/28/2004 12:20 EDT) BUN 19 8 - 21 mg/dl [facility] Comment:Performed at [facility], [place], [place] 11/28/2004 12:2 0 EDT 11/28/2004 12:41 EDT Allison Alarcon MD CHEMISTRY & BLOOD GAS ORDERA BLES Final Result Performing Organization Address [facility] Co de Phone Number [facility] [address] [place] [address] * SODIUM (11/27/2004 6:15 EDT) Sodium 137 136 - 145 mEq/L [facility] Comment:Performed at [place], [place] 11/27/2004 6:15 EDT 11/27/2004 6:26 EDT us Allison Alarcon MD CHEMISTRY & BLOOD GAS ORDERA BLES Final Result Performing Organization Address [facility]/ZIP Co de Phone Number [facility] [address] [place] [address] * BUN (11/27/2004 6:15 EDT) BUN 21 8 - 21 mg/dl [facility] Comment:Performed at [place], [place] 11/27/2004 6:15 EDT 11/27/2004 6:26 EDT us Allison Alarcon MD CHEMISTRY & BLOOD GAS ORDERA BLES Final Result Performing Organization Address [facility]/ZIP Co de Phone Number [facility] [address] [place] [address] * (ABNORMAL) TSH (11/26/2004 5:50 EDT) TSH 0.15(L) 0.50 - 5.00 uIU/ml [facility] 11/26/2004 5:50 EDT 11/26/2004 6:53 EDT us Allison Alarcon MD CHEMISTRY & BLOOD GAS ORDERA BLES Final Result Performing Organization Address [facility] Co de Phone Number [facility] [address] [place] [address] * SODIUM (11/26/2004 5:50 EDT) Sodium 138 136 - 145 mEq/L [facility] Comment:Performed at [place], [place] 11/26/2004 5:50 EDT 11/26/2004 6:53 EDT us Allison Alarcon MD CHEMISTRY & BLOOD GAS ORDERA BLES Final Result [facility] [address] [place] [address] * T4 FREE (11/26/2004 5:50 EDT) Free T4 1.2 0.8 - 1.8 ng/dl [facility] 11/26/2004 5:50 EDT 11/26/2004 6:53 EDT us Allison Alarcon MD CHEMISTRY & BLOOD GAS ORDERA BLES Final Result Performing Organization Address [facility]/ZIP Co de Phone Number [facility] [address] [place] [address] * BUN (11/26/2004 5:50 EDT) Pathologist [facility] BUN 20 8 - 21 mg/dl [facility] Comment:Performed at [facility] [place], [place] 11/26/2004 5:50 EDT 11/26/2004 6:53 EDT us Allison Alarcon MD CHEMISTRY & BLOOD GAS ORDERA BLES Final Result Performing Organization Address [facility]/ZIP Co de Phone Number [facility] [address] [place] [address] * TESTS ADDED BY PHONE (11/26/2004 5:50 EDT) Tests to be added TSH,FT4 [facility] 11/26/2004 5:50 EDT 11/26/2004 6:53 EDT us Allison Alarcon MD CHEMISTRY & BLOOD GAS ORDERA BLES Final Result [facility] [address] [place] [address] * SODIUM (11/25/2004 15:00 EDT) Sodium 137 136 - 145 mEq/L [facility] 11/25/2004 15:0 0 EDT 11/25/2004 15:12 EDT us Allison Alarcon MD CHEMISTRY & BLOOD GAS ORDERA BLES Final Result Performing Organization Address [facility] de Phone Number [facility] [address] [place] [address] * SODIUM (11/25/2004 6:05 EDT) Sodium 137 136 - 145 mEq/L [facility] Comment:Performed at [place], [place] 11/25/2004 6:05 EDT 11/25/2004 9:31 EDT us Allison Alarcon MD CHEMISTRY & BLOOD GAS ORDERA BLES Final Result Performing Organization Address [facility] de Phone Number [facility] [address] [place] [address] * BUN (11/25/2004 6:05 EDT) BUN 21 8 - 21 mg/dl [facility] Comment:Performed at [place], [place] 11/25/2004 6:05 EDT 11/25/2004 9:31 EDT us Allison Alarcon MD CHEMISTRY & BLOOD GAS ORDERA BLES Final Result Performing Organization Address [facility] de Phone Number [facility] [address] [place] [address] * SODIUM (11/24/2004 6:15 EDT) Sodium 144 136 - 145 mEq/L [facility] Comment:Performed at [place], [place] 11/24/2004 6:15 EDT 11/24/2004 9:58 EDT us Allison Alarcon MD CHEMISTRY & BLOOD GAS ORDERA BLES Final Result Performing Organization Address [facility]/ZIP Co de Phone Number [facility] [address] [place] [address] * (ABNORMAL) BUN (11/24/2004 6:15 EDT) BUN 22(H) 8 - 21 mg/dl [facility] Comment:Performed at [place], [place] 11/24/2004 6:15 EDT 11/24/2004 9:58 EDT us Allison Alarcon MD CHEMISTRY & BLOOD GAS ORDERA BLES Final Result Performing Organization Address [facility] Co de Phone Number [facility] [address] [place] [address] * (ABNORMAL) SODIUM (11/23/2004 5:50 EDT) Sodium 146(H) 136 - 145 mEq/L [facility] Comment:Performed at [place], [place] 11/23/2004 5:50 EDT 11/23/2004 7:26 EDT us Allison Alarcon MD CHEMISTRY & BLOOD GAS ORDERA BLES Final Result Performing Organization Address [facility] de Phone Number [facility] [address] [place] [address] * (ABNORMAL) BUN (11/23/2004 5:50 EDT) BUN 25(H) 8 - 21 mg/dl [facility] Comment:Performed at [place], [place] 11/23/2004 5:50 EDT 11/23/2004 7:26 EDT us Allison Alarcon MD CHEMISTRY & BLOOD GAS ORDERA BLES Final Result Performing Organization Address [facility] Co de Phone Number [facility] [address] [place] [address] * (ABNORMAL) SODIUM (11/22/2004 7:00 EDT) Sodium 147(H) 136 - 145 mEq/L [facility] Comment:Performed at [place], [place] 11/22/2004 7:00 EDT 11/22/2004 7:09 EDT Allison Alarcon MD CHEMISTRY & BLOOD GAS ORDERA BLES Final Result Performing Organization Address [facility] de Phone Number [facility] [address] [place] [address] * CREATININE (11/22/2004 7:00 EDT) Creatinine 0.8 0.6 - 1.2 mg/dl [facility] Comment:Performed at [place], [place] 11/22/2004 7:00 EDT 11/22/2004 7:09 EDT Allison lAarcon MD HISTORICAL LAB FOR SQ LOAD F inal Result Performing Organization Address [facility] de Phone Number [facility] [address] [place] [address] * (ABNORMAL) BUN (11/22/2004 7:00 EDT) BUN 28(H) 8 - 21 mg/dl [facility] Comment:Performed at [place], [place] 11/22/2004 7:00 EDT 11/22/2004 7:09 EDT Allison Alarcon MD CHEMISTRY & BLOOD GAS ORDERA BLES Final Result Performing Organization Address [facility] de Phone Number [facility] [address] [place] [address] * (ABNORMAL) ELECTROLYTES (11/21/2004 6:50 EDT) Sodium 146(H) 136 - 145 mEq/L [facility] Potassium 4.4 3.6 - 5.2 mEq/L [facility] Chloride 105 96 - 110 mEq/L [facility] CO2 33(H) 24 - 32 mEq/L [facility] Comment:Performed at [facility] [employer] [place], [place] 11/21/2004 6:50 EDT 11/21/2004 7:26 EDT Allison Alarcon MD CHEMISTRY & BLOOD GAS ORDERA BLES Final Result Performing Organization Address [facility] de Phone Number [facility] [address] [place] [address] * (ABNORMAL) HEMAGRAM (11/21/2004 6:50 EDT) WBC 5.20 4.5 - 13.0 K/cmm [facility] RBC 3.79(L) 4.50 - 5.30 M/cmm [facility] Hemoglobin 10.7(L) 13.0 - 16.0 gm/dl [facility] HCT 31.9(L) 37.0 - 49.0 % [facility] MCV 84 78 - 98 fl [facility] MCH 28.2 pg [facility] MCHC 33.6 gm/dl [facility] PLT 259 156 - 312 K/cmm [facility] RDW-CV 16.0 % [facility] 11/21/2004 6:50 EDT 11/21/2004 7:26 EDT us Allison Alarcon MD HEMATOLOGY & PF4 ORDERABLES Final Result Performing Organization Address [facility] de Phone Number [facility] [address] [place] [address] * CREATININE (11/21/2004 6:50 EDT) Creatinine 0.8 0.6 - 1.2 mg/dl [facility] Comment:Performed at [facility] [address] [place], [place] 11/21/2004 6:50 EDT 11/21/2004 7:26 EDT Allison Alarcon MD HISTORICAL LAB FOR SQ LOAD F inal Result [facility] [address] [place] [address] * (ABNORMAL) BUN (11/21/2004 6:50 EDT) BUN 30(H) 8 - 21 mg/dl [facility] Comment:Performed at [facility] [place], [place] 11/21/2004 6:50 EDT 11/21/2004 7:26 EDT us Allison Alarcon MD CHEMISTRY & BLOOD GAS ORDERA BLES Final Result Performing Organization Address [facility] Co de Phone Number [facility] [address] [place] [address] * SODIUM (11/21/2004 6:00 EDT) Sodium 136 - 145 mEq/L [facility] 11/21/2004 6:00 EDT 11/21/2004 6:41 EDT us Allison Alarcon MD CHEMISTRY & BLOOD GAS ORDERA BLES Final Result Performing Organization Address [facility] Co de Phone Number [facility] [address] [place] [address] documented in this encounter Visit Diagnoses Not on filedocumented in this encounter
--- OUTSIDE RECORDS SUMMARY | 2024-07-22 13:47 | XMS_ITS | Encounter Summary ---
Author Organization [facility] Address [address] [place] [address] Care Team Providers Care Director Of Laboratory Operations Name Role Phone Yan Demarco MD Primary Care Provider [phone] Corin Skinner MD Primary Care Provider Akil Serrano MD Primary Care Provider [phone] Encounter Details Date Type Department Care Team (Late st Contact Info) Description 11/23/2004 Before PRISM Converted Visit (Maple) [facility] - Maple conversion [address] [place] [address] Kylie Larson MD [address] [place] [address] Social History Tobacco Use Types Packs/Day Years [...] - KYLIE LARSON MD /re Voice ID: [id number] Doc ID: [id number] n the next few days. We will continue to keep watch on his electrolyte and fluid status. I will keep in contact with Dr. Edwards as necessary. - KYLIE LARSON MD /re Voice ID: [id number] Doc ID:[id number] documented in this encounter Plan of Treatment Upcoming Encounters Date Type Department Care Team (Late st Contact Info) Description 10/01/2024 13:40 EDT Office Visit [facility] Endocrinology - [facility] [address] [place] [address] Wilder Zaidi, DO [address] [facility] [address] [place] [address] documented as of this encounter Visit Diagnoses Not on filedocumented in this encounter Care Teams Director Of Laboratory Operations Relationship Specialty Start Date End Date Yan Demarco MD [address] [place] [address] PCP - General 08/22/09 02/20/10 Corin Skniner MD [address] [address] PCP - General 10/24/08 08/21/09 Akil Serrano MD [address] [place] [address] PCP - General 02/21/10 04/16/11 documented as of this encounter
--- OUTSIDE RECORDS SUMMARY | 2024-07-22 13:47 | XMS_ITS | Encounter Summary ---
Author Organization [facility] Address [address] [place] [address] Care Team Providers Care Gambling Supervisor Name Role Phone Yan Demarco MD Primary Care Provider Corin Skinner MD Primary Care Provider Akil Serrano MD Primary Care Provider [phone] Encounter Details Date Type Department Care Team (Late st Contact Info) Description 11/22/2004 Before PRISM Converted Visit (Maple) [facility] - Maple conversion [address] [place], [place] [address] [place] Angelo MD [address] [phone] Social History Tobacco Use Types Packs/Day Years [...] - RALEIGH ANGELO MD /lr Voice ID: [id number] Doc ID: [id number] stright ASSESSMENT AND PLAN: Continue program activities. Increase free water by 200 cc q.i.d. Continue monitoring of electrolytes and renal status. Continue DDAVP, hydrocortisone, and levothyroxine. - RALEIGH ANGELO MD /lr Voice ID: [id number] Doc ID: [id number] documented in this encounter Plan of Treatment Upcoming Encounters Date Type Department Care Team (Late st Contact Info) Description 10/01/2024 13:40 EDT Office Visit [facility] Endocrinology - [address] [id number] Wilder Zaidi, DO [address] [facility] [address] [place] [address] documented as of this encounter Visit Diagnoses Not on filedocumented in this encounter Care Teams Gambling Supervisor Relationship Specialty Start Date End Date Yan Demarco MD [address] [place] [address] PCP - General 08/22/09 02/20/10 Corin Skinner MD [address] [address] PCP - General 10/24/08 08/21/09 Akil Serrano MD [address] [facility] [address] PCP - General 02/21/10 04/16/11 documented as of this encounter
--- OUTSIDE RECORDS SUMMARY | 2024-07-22 13:47 | XMS_ITS | Encounter Summary ---
Author Organization [facility] Address [address] [place] [address] Care Team Providers Care Funeral Car Driver Name Role Phone Yan Demarco MD Primary Care Provider Corin Skinner MD Primary Care Provider Akil Serrano MD Primary Care Provider [phone] Encounter Details Date Type Department Care Team (Late st Contact Info) Description 12/01/2004 Before PRISM Converted Visit (Maple) [facility] - Maple conversion [address] [place] [address] Allison Alarcon MD [address] [place] [phone] Social History Tobacco Use Types Packs/Day Years [...] - ALLISON ALARCON MD /re Voice ID: [id number] Doc ID: [id number] ry liquid anesthetic drops to the ear and see how he responds. BUN and sodium were not drawn today due to an error. As these have been relatively stable, we will wait until tomorrow. PLAN: 1. BUN and sodium tomorrow. 2. Auralgan drops to his right ear. - ALLISON ALARCON MD /re Voice ID: [id number] Doc ID: [id number] documented in this encounter Plan of Treatment Upcoming Encounters Date Type Department Care Team (Late st Contact Info) Description 10/01/2024 13:40 EDT Office Visit [facility] Endocrinology - [facility] [address] [place] [address] Wilder Zaidi, [address] [facility] [address] [place] [address] documented as of this encounter Visit Diagnoses Not on filedocumented in this encounter Care Teams Funeral Car Driver Relationship Specialty Start Date End Date Yan Demarco MD [address] [place] [address] PCP - General 08/22/09 02/20/10 Corin Skinner MD [address] [address] PCP - General 10/24/08 08/21/09 Akil Serrano MD [address] [facility] [address] [place], [place] [address] PCP - General 02/21/10 04/16/11 documented as of this encounter
--- OUTSIDE RECORDS SUMMARY | 2024-07-22 13:47 | XMS_ITS | Encounter Summary ---
Author Organization [facility] Address [address] [place] [address] Care Team Providers Care Doctor Of Pharmacy Name Role Phone Yan Demarco MD Primary Care Provider Corin Skinner MD Primary Care Provider Akil Serrano MD Primary Care Provider [phone] Encounter Details Date Type Department Care Team (Late st Contact Info) Description 11/25/2004 Before PRISM Converted Visit (Maple) [facility] - Maple conversion [address] [place] [address] Kylie Larson MD [address] [place] [phone] Social History Tobacco Use Types Packs/Day Years [...] - KYLIE LARSON MD /re Voice ID: [id number]: [id number] aspalpha -KYLIE LARSON MD /re Voice ID: [id number] Doc ID: [id number] documented in this encounter Plan of Treatment Upcoming Encounters Date Type Department Care Team (Late st Contact Info) Description 10/01/2024 13:[address] [facility] Endocrinology - [facility] [address] [place] [address] Wilder Zaidi, [address] [facility] [address] [place] [address] documented as of this encounter Visit Diagnoses Not on filedocumented in this encounter Care Teams Doctor Of Pharmacy Relationship Specialty Start Date End Date Yan Demarco MD [address] [place] [address] PCP - General 08/22/09 02/20/10 Corin Skinner MD [address] [place] [phone] PCP - General 10/24/08 08/21/09 Akil Serrano MD 74 [facility] [place] [address] PCP - General 02/21/10 04/16/11 documented as of this encounter
--- OUTSIDE RECORDS SUMMARY | 2024-07-22 13:47 | XMS_ITS | Encounter Summary ---
Author Organization [facility] Address [address] [place] [address] Care Team Providers Care Lead Assistant Manager Name Role Phone Yan Demarco MD Primary Care Provider Corin Skinner MD Primary Care Provider Akil Serrano MD Primary Care Provider [phone] Encounter Details Date Type Department Care Team (Late st Contact Info) Description 11/20/2004 Before PRISM Converted Visit (Maple) [facility] - Maple conversion [address] [place] [address] Kylie Larson MD [address] [place] [address] Social History Tobacco Use Types Packs/Day Years [...] will intermittently but inconsistently follow 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 He will withdraw [...] - 11/20/2004 14:46:57 - ss Voice ID- [id number] Document ID - [id number] cc: SUMMER CHRISTIE MD, REFERRING PHYSICIAN ANCELMO MALLOY MD, REFERRING PHYSICIAN Approved by: KYLIE LARSON MD Attending Physician This document has been electronically signed by KYLIE LARSON MD on 11/21/2004 17:25:21. y. 8. Dr. Castañeda will be consulted to monitor this complicated patient along with us. - 11/20/2004 13:25:35 - KYLIE LARSON MD - 11/20/2004 14:46:57 - ss Voice ID - [id number] Document ID - [id number] cc: ADE MALLOY MD, REFERRING PHYSICIAN SUMMER CHRISTIE MD, REFERRING PHYSICIAN ANCELMO MICHAEL MD Approved by: KYLIE LARSON MD Attending Physician documented in this encounter Plan of Treatment Upcoming Encounters Date Type Department Care Team (Late st Contact Info) Description 10/01/2024 13:40 EDT [facility] - [facility] [address] [place], [place] [phone] Wilder Zaidi, 62 [facility] [address] [place] [address] documented as of this encounter Visit Diagnoses Not on filedocumented in this encounter Care Teams Lead Assistant Manager Relationship Specialty Start Date End Date Yan Demarco MD [address] [place] [address] PCP - General 08/22/09 02/20/10 Corin Skinner MD [address] [place] [phone] PCP - General 10/24/08 08/21/09 Akil Serrano MD 74 [facility] [address] [place] [address] PCP - General 02/21/10 04/16/11 documented as of this encounter
--- OUTSIDE RECORDS SUMMARY | 2024-07-22 13:47 | XMS_ITS | Encounter Summary ---
Author Organization [facility] Address [address] [place] [address] Care Team Providers Care Manager Copy Name Role Phone Yan Demarco MD Primary Care Provider [phone] Corin Skinner MD Primary Care Provider [phone] Akil Serrano MD Primary Care Provider [phone] Yossi Torres MD Primary Care Provider [phone] Emilee [place] MD Primary Care Provider + Ren Vaz MD Primary Care Provider [phone] Encounter Details Date Type Department Care Team (Late st Contact Info) Description 03/27/2005 Before PRISM Converted Visit (Maple) [facility] Pediatric Neurology - [facility] [place] [address] [place], [place] [address] Hilton Álvarez MD [address] [place] [phone] Social History Tobacco Use Types Packs/Day [...] 10/01/2024 13:40 EDT Office Visit [facility] Endocrinology [address] [place] [address] Wilder Zaidi, DO [address] [place] [address] documented as of this encounter [...] ??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 /tnsantos I have personally reviewed the images and [...] filedocumented in this encounter Care Teams Manager Copy Relationship Specialty Start Date End Date Yan Demarco MD [address] [place] [address] PCP - General 08/22/09 02/20/10 Corin Skinner MD [address] [place] [phone] PCP - General 10/24/08 08/21/09 Akil Serrano MD 74 [facility],[address] [address] PCP - General 02/21/10 04/16/11 Yossi Torres MD [address] [place] [phone] PCP - General 04/17/11 03/14/16 Emilee [place] MD [address] [place] [phone] PCP - General 03/15/16 09/29/18 Ren Vaz MD [address] [place] [address] PCP - General 09/30/18 documented as of this encounter
--- OUTSIDE RECORDS SUMMARY | 2024-07-22 13:47 | XMS_ITS | Encounter Summary ---
Author Organization [facility] Address [address] [place] [address] Care Team Providers Care Sawmill Worker Name Role Phone Yan Demarco MD Primary Care Provider Corin Skinner MD Primary Care Provider Akil Serrano MD Primary Care Provider [phone] Encounter Details Date Type Department Care Team (Late st Contact Info) Description 11/22/2004 Before PRISM Converted Visit (Maple) [facility] - Maple conversion [address] [place] [address] Kylie Larson MD [address] [place] [phone] Social History Tobacco Use Types Packs/Day Years [...] - KYLIE LARSON MD /re Voice ID: [id number] Doc ID: [id number] ssa. No other medication changes will be made today. He will continue comprehensive therapy services for neurorehabilitation. - KYLIE LARSON MD re Voice ID: [id number] Doc ID: [id number] documented in this encounter Plan of Treatment Upcoming Encounters Date Type Department Care Team (Late st Contact Info) Description 10/01/2024 13:40 EDT Office Visit [facility] Endocrinology - [facility] [address] [place] [address] Wilder Zaidi, DO 62 [facility] [address] [place] [address] documented as of this encounter Visit Diagnoses Not on filedocumented in this encounter Care Teams Sawmill Worker Relationship Specialty Start Date End Date Yan Demarco MD [address] [place] [phone] PCP - General 08/22/09 02/20/10 Corin Skinner MD [address] [phone] PCP - General 10/24/08 08/21/09 Akil Serrano MD 74 [facility],[address] [phone] PCP - General 02/21/10 04/16/11 documented as of this encounter
--- OUTSIDE RECORDS SUMMARY | 2024-07-22 13:47 | XMS_ITS | Encounter Summary ---
Author Organization [facility] Address [address] [place] [address] Care Team Providers Care Associate Producer Name Role Phone Unavailable Primary Care Provider Unavailabl e Encounter Details Date Type Department Care Team (Late st Contact Info) Description 01/01/2005 4:51 EDT - 01/15/2005 11:59 EDT Hospital Encounter [facility] Pediatric Unit [address] [place] [address] Jodi Parr MD 111 [facility], [address] [phone] Slava Pineda MD Discharge Disposition: Cancer Center/[facility] Social History Tobacco Use Types Packs/Day [...] left-sided weakness. [facility] on November 20, 2004. He had been sent to the [facility] because of increased irritability and agitation, [...] date. DISPOSITION: The patient was discharged to [facility] facility. CONDITION AT DISCHARGE: Fair. DISCHARGE INSTRUCTIONS: Per patient family and [facility] facility: Discharge medications: Omeprazole 40 mg PO per G-tube twice daily Gabapentin 100 mg per G-tube twice daily DDAVP 0.15 mg per G-tube at 8:00 a.m., at midnight, and 0.1 mg per G-tube at 1600 Hydrocortisone 10 mg, 5 mg, 5 mg PO q8 hours Levothyroxine 150 mcg per G-tube daily Methylphenidate 5 mg per G-tube daily. [facility] was instructed to restrict free fluids to no more than 2 liters on day of discharge. They were also instructed to check serum sodium levels daily and call Dr. Edwards at [facility] if there were any questions regarding his sodium. Free fluid targets would be based on daily sodium levels. The patient has already been followed by Dr. Edwards and he is involvedin his care. [facility] aware that [facility] can call Dr. Edwards when they have any questions regarding endocrine issues for Miguel Angel. Signed by Jodi Parr MD 02/20/2005 07:31 Isabel Tilley, Aleksandra Tilley, [facility] Par[place] MD= - Isabel Tilley MD P - Job ID: [id number] Document ID: [id number] cc: MD Thad Jones MD Thomas Moseley, [...] Info) Description 10/01/2024 13:40 EDT Office Visit [facility] Endocrinology - [address] [address] Wilder Zaidi, DO [address] [place] [address] [address] [place] [address] documented as of this encounter [...] since previous examinations. D: ??01/10/05 T: ??01/15/05 /[facility] Procedure Note Jose Armando Barker MD - [...] No other new findings since previous examinations. /[facility] us Wes Borja MD [facility] MRI ORDERABLES Final Resul t * PORTABLE [...]
--- OUTSIDE RECORDS SUMMARY | 2024-07-22 13:47 | XMS_ITS | Encounter Summary ---
Author Organization [facility] Address [address] [place] [address] Care Team Providers Care Pt Escort Name Role Phone Yan Demarco MD Primary Care Provider Corin Skinner MD Primary Care Provider Akil Serrano MD Primary Care Provider [phone] Encounter Details Date Type Department Care Team (Late st Contact Info) Description 12/07/2004 Before PRISM Converted Visit (Maple) [facility] - Maple conversion [address] [place], [place] [address] Raleigh Angelo MD [address] [phone] Social History Tobacco Use Types Packs/Day Years [...] - RALEIGH ANGELO MD /lr Voice ID: [id number] Doc ID: [id number] [facility] ASSESSMENT AND PLAN: Continue full program activities. Review laboratory results when available. - RALEIGH ANGELO MD /lr Voice ID: [id number] Doc ID: [id number] documented in this encounter Plan of Treatment Upcoming Encounters Date Type Department Care Team (Late st Contact Info) Description 10/01/2024 13:40 EDT Office Visit [facility] Endocrinology - [facility] [address] [place], [place] [phone] Wilder Zaidi, 62 [facility] [address] [place] [address] documented as of this encounter Visit Diagnoses Not on filedocumented in this encounter Care Teams Pt Escort Relationship Specialty Start Date End Date Yan Demarco MD [address] [place] [phone] PCP - General 08/22/09 02/20/10 Corin Skinner MD [address] [place] [phone] PCP - General 10/24/08 08/21/09 Akil Serrano MD [address] [place] [address],[facility] [address] [place] [address] PCP - General 02/21/10 04/16/11 documented as of this encounter
--- OUTSIDE RECORDS SUMMARY | 2024-07-22 13:47 | XMS_ITS | Encounter Summary ---
Author Organization [facility] Address [address] [place] [address] Care Team Providers Care Warehouse Production Worker Name Role Phone Yan Demarco MD Primary Care Provider Corin Skinner MD Primary Care Provider [phone] Akil Serrano MD Primary Care Provider [phone] Encounter Details Date Type Department Care Team (Late st Contact Info) Description 12/02/2004 Before PRISM Converted Visit (Maple) [facility] - Maple conversion [address] [place] [address] Allison Alarcon MD [address] [place] [phone] Social History Tobacco Use Types Packs/Day Years [...] - ALLISON ALARCON MD /re Voice ID: [id number] Doc ID: [id number] PICC line has clotted off. IV team is recommending a TPA treatment and we are waiting for that to be acquired before we can try to get his labs. Otherwise, the patient is remaining stable. - ALLISON ALARCON MD /re Voice ID: [id number] Doc ID: [id number] documented in this encounter Plan of Treatment Upcoming Encounters Date Type Department Care Team (Late st Contact Info) Description 10/01/2024 13:40 EDT Office Visit [facility] Endocrinology - [facility] [address] [place], [place] [phone] Wilder Zaidi, 62 [facility] [address] [place] [address] documented as of this encounter Visit Diagnoses Not on filedocumented in this encounter Care Teams Warehouse Production Worker Relationship Specialty Start Date End Date Yan Demarco MD [address] [place] [address] PCP - General 08/22/09 02/20/10 Corin Skinner MD [address] [place] [phone] PCP - General 10/24/08 08/21/09 Akil Serrano MD [address] [place] [address],[facility] [address] [place], [place] [address] PCP - General 02/21/10 04/16/11 documented as of this encounter
--- OUTSIDE RECORDS SUMMARY | 2024-07-22 13:47 | XMS_ITS | Encounter Summary ---
Author Organization [facility] Address [address] [place] [address] Care Team Providers Care Cardiovascular Technologist Name Role Phone Yan Demarco MD Primary Care Provider Corin Skinner MD Primary Care Provider Akil Serrano MD Primary Care Provider [phone] Encounter Details Date Type Department Care Team (Late st Contact Info) Description 12/08/2004 Before PRISM Converted Visit (Maple) [facility] - Maple conversion [address] [place], [place] [address] Raleigh Angelo MD [address] [phone] Social History Tobacco Use Types Packs/Day Years [...] - RALEIGH ANGELO MD /lr Voice ID: [id number] Doc ID: [id number] nthroid, and hydrocortisone. Continue periodic monitoring of electrolytes and renal function. - RALEIGH ANGELO MD /lr Voice ID: [id number] Doc ID: [id number] documented in this encounter Plan of Treatment Upcoming Encounters Date Type Department Care Team (Late st Contact Info) Description 10/01/2024 13:40 EDT Office Visit [facility] Endocrinology - [address] [phone] Wilder Zaidi, [address] [place] [address] [address] [place] [address] documented as of this encounter Visit Diagnoses Not on filedocumented in this encounter Care Teams Cardiovascular Technologist Relationship Specialty Start Date End Date Yan Demarco MD [address] [place] [address] PCP - General 08/22/09 02/20/10 Corin Skinner MD [address] [place] [phone] PCP - General 10/24/08 08/21/09 Akil Serrano MD 74 [facility] [place] [address] PCP - General 02/21/10 04/16/11 documented as of this encounter
--- OUTSIDE RECORDS SUMMARY | 2024-07-22 13:47 | XMS_ITS | Encounter Summary ---
Author Organization [facility] Address [address] [place] [address] Care Team Providers Care Band Lining Bander Name Role Phone Yan Demarco MD Primary Care Provider Corin Skinner MD Primary Care Provider Akil Serrano MD Primary Care Provider [phone] Encounter Details Date Type Department Care Team (Late st Contact Info) Description 11/26/2004 Before PRISM Converted Visit (Maple) [facility] - Maple conversion [address] [place] [address] Allison Alarcon MD 0 [place] [phone] Social History Tobacco Use Types Packs/Day Years [...] on 11/27/2004 12:05:06. - ALLISON ALARCON MD /chelle Voice ID: [id number] Doc ID: [id number] blish some consistency as far as yes [...] team rounds tomorrow. - ALLISON ALARCON MD /chelle Voice ID: [id number] Doc ID: [id number] documented in this encounter Plan of Treatment Upcoming Encounters Date Type Department Care Team (Late st Contact Info) Description 10/01/2024 13:40 EDT Office Visit [facility] Endocrinology - [facility] [address] [place] [address] Wilder Zaidi, 62 [facility] [address] [place] [address] documented as of this encounter Visit Diagnoses Not on filedocumented in this encounter Care Teams Band Lining Bander Relationship Specialty Start Date End Date Yan Demarco MD [address] [place] [address] PCP - General 08/22/09 02/20/10 Corin Skinner MD [address] [place] [phone] PCP - General 10/24/08 08/21/09 Akil Serrano MD [address] [place] [address] [address] [place] [address] PCP - General 02/21/10 04/16/11 documented as of this encounter
--- OUTSIDE RECORDS SUMMARY | 2024-07-22 13:47 | XMS_ITS | Encounter Summary ---
Author Organization [facility] Address [address] [place] [address] Care Team Providers Care Profiler Operator Name Role Phone Yan Demarco MD Primary Care Provider Corin Skinner MD Primary Care Provider Akil Serrano MD Primary Care Provider [phone] Encounter Details Date Type Department Care Team (Late st Contact Info) Description 11/21/2004 Before PRISM Converted Visit (Maple) [facility] - Maple conversion [address] [place] [address] Kylie Larson MD [address] [place] [phone] Social History Tobacco Use Types Packs/Day Years [...] - KYLIE LARSON MD /re Voice ID: [id number] Doc ID: [id number] eurostimulation to try and wake him up a bit. I will review his medical course with Dr. Castañeda, who will be assisting in endocrine and electrolyte management. I will continue to keep in touch closely with Dr. Edwards, who will spearheading his endocrine management. Full evaluations will take place today to begin neuro rehab. - KYLIE LARSON MD /re Voice ID: [id number] Doc ID: [id number] documented in this encounter Plan of Treatment Upcoming Encounters Date Type Department Care Team (Late st Contact Info) Description 10/01/2024 13:[address] [facility] Endocrinology - [facility] [address] [place] [address] Wilder Zaidi, DO 62 [facility] [address] [place] [address] documented as of this encounter Visit Diagnoses Not on filedocumented in this encounter Care Teams Profiler Operator Relationship Specialty Start Date End Date Yan Demarco MD [address] [place] [address] PCP - General 08/22/09 02/20/10 Corin Skinner MD [address] [place] [phone] PCP - General 10/24/08 08/21/09 Akil Serrano MD [address] [place] [address] [address] [place] [address] PCP - General 02/21/10 04/16/11 documented as of this encounter
--- OUTSIDE RECORDS SUMMARY | 2024-07-22 13:47 | XMS_ITS | Encounter Summary ---
Author Organization [facility] Address [address] [place] [address] Care Team Providers Care Certified Personal Finance Counselor Name Role Phone Yan Demarco MD Primary Care Provider [phone] Corin Skinner MD Primary Care Provider Akil Serrano MD Primary Care Provider [phone] Encounter Details Date Type Department Care Team (Late st Contact Info) Description 11/29/2004 Before PRISM Converted Visit (Maple) [facility] - Maple conversion [address] [place] [address] Allison Alarcon MD 0 [place] [phone] Social History Tobacco Use Types Packs/Day Years [...] subacute rehab facility which is December, at [facility] in [place].Social work has identified there are still a [...] - ALLISON ALARCON MD / Voice ID: [id number] Doc ID: [id number] - ALLISON ALARCON MD /mh Voice ID: [id number] Doc ID: [id number] documented in this encounter Plan of Treatment Upcoming Encounters Date Type Department Care Team (Late st Contact Info) Description 10/01/2024 13:40 EDT Office Visit [facility] Endocrinology - [facility] [address] [place] [address] Wilder Zaidi, 62 [facility] [address] [place] [address] documented as of this encounter Visit Diagnoses Not on filedocumented in this encounter Care Teams Certified Personal Finance Counselor Relationship Specialty Start Date End Date Yan Demarco MD [address] [place] [phone] PCP - General 08/22/09 02/20/10 Corin Skinner MD [address] [place] [phone] PCP - General 10/24/08 08/21/09 Akil Serrano MD [address] [place] [address] 100 [place] [address] PCP - General 02/21/10 04/16/11 documented as of this encounter
--- OUTSIDE RECORDS SUMMARY | 2024-07-22 13:47 | XMS_ITS | Encounter Summary ---
Author Organization [facility] Address [address] [place] [address] Care Team Providers Care Director Of Contracts Name Role Phone Yan Demarco MD Primary Care Provider Corin Skinner MD Primary Care Provider Akil Serrano MD Primary Care Provider [phone] Encounter Details Date Type Department Care Team (Late st Contact Info) Description 12/04/2004 Before PRISM Converted Visit (Maple) [facility] - Maple conversion [address] [place] [address] Allison Alarcon MD 0 [place] [phone] Social History Tobacco Use Types Packs/Day Years [...] - ALLISON ALARCON MD /ss Voice ID: [id number] Doc ID: [id number] times of therapies. PLAN: Continue with full program. (Thirty-five minutes total time, greater than 50% direct discussion and review of patient's care with mom and care coordination with team). - ALLISON ALARCON MD /ss Voice ID: [id number] Doc ID: [id number] documented in this encounter Plan of Treatment Upcoming Encounters Date Type Department Care Team (Late st Contact Info) Description 10/01/2024 13:40 EDT Office Visit [facility] Endocrinology - [facility] [address] [place] [address] Wilder Zaidi, DO 62 [facility] [address] [place] [address] documented as of this encounter Visit Diagnoses Not on filedocumented in this encounter Care Teams Director Of Contracts Relationship Specialty Start Date End Date Yan Demarco MD [address] [place] [address] PCP - General 08/22/09 02/20/10 Corin Skinner MD [address] [place] [phone] PCP - General 10/24/08 08/21/09 Akil Serrano MD [address] [address] PCP - General 02/21/10 04/16/11 documented as of this encounter
--- OUTSIDE RECORDS SUMMARY | 2024-07-22 13:47 | XMS_ITS | Encounter Summary ---
Author Organization [facility] Address [address] [place] [address] Care Team Providers Care Underwater Roboticist Name Role Phone Yan Demarco MD Primary Care Provider Corin Skinner MD Primary Care Provider [phone] Akil Serrano MD Primary Care Provider [phone] Encounter Details Date Type Department Care Team (Late st Contact Info) Description 12/10/2004 Before PRISM Converted Visit (Maple) [facility] - Maple conversion [address] [place] [address] Allison Alarcon MD [address] [place] [phone] Social History Tobacco Use Types Packs/Day Years [...] - ALLISON ALARCON MD /mo Voice ID: [id number] Doc ID: [id number] documented in this encounter Plan of Treatment Upcoming Encounters Date Type Department Care Team (Late st Contact Info) Description 10/01/2024 13:40 EDT Office Visit [facility] Endocrinology - [facility] [address] [place] [address] Wilder Zaidi, 62 [facility] [address] [place] [address] documented as of this encounter Visit Diagnoses Not on filedocumented in this encounter Care Teams Underwater Roboticist Relationship Specialty Start Date End Date Yan Demarco MD [address] [place] [id number] PCP - General 08/22/09 02/20/10 Corin Skinner MD [address] [address] PCP - General 10/24/08 08/21/09 Akil Serrano MD 74 [facility],[address] [address] PCP - General 02/21/10 04/16/11 documented as of this encounter
--- OUTSIDE RECORDS SUMMARY | 2024-07-22 13:47 | XMS_ITS | Encounter Summary ---
Author Organization [facility] Address [address] [place] [address] Care Team Providers Care Assistant Bookkeeper Name Role Phone Yan Demarco MD Primary Care Provider [phone] Corin Skinner MD Primary Care Provider Akil Serrano MD Primary Care Provider [phone] Encounter Details Date Type Department Care Team (Late st Contact Info) Description 11/28/2004 Before PRISM Converted Visit (Maple) [facility] - Maple conversion [address] [place], [place] [address] Raleigh Angelo MD [address] [phone] Social History Tobacco Use Types Packs/Day Years [...] - RALEIGH ANGELO MD /lr Voice ID: [id number] Doc ID: [id number] 0Vital signs are stable. The patient is afebrile. Cardiac rhythm is regular. Lung medellin are clear.Abdomen is soft. JVD is not visible. ASSESSMENT AND PLAN: Continue full program activities. Continue gastrostomy tube feedings and fluidadministration. - RALEIGH ANGELO MD /lr Voice ID: [id number] Doc ID: [id number] documented in this encounter Plan of Treatment Upcoming Encounters Date Type Department Care Team (Late st Contact Info) Description 10/01/2024 13:40 EDT Office Visit [facility] Endocrinology - [address] [address] Wilder Zaidi, 62 [facility] [address] [place] [address] documented as of this encounter Visit Diagnoses Not on filedocumented in this encounter Care Teams Assistant Bookkeeper Relationship Specialty Start Date End Date Yan Demarco MD [address] [place] [address] PCP - General 08/22/09 02/20/10 Corin Skinner MD [address] [place] [phone] PCP - General 10/24/08 08/21/09 Akil Serrano MD 74 [facility],[address] [address] PCP - General 02/21/10 04/16/11 documented as of this encounter
--- OUTSIDE RECORDS SUMMARY | 2024-07-22 13:47 | XMS_ITS | Encounter Summary ---
Author Organization [facility] Address [address] [place] [address] Care Team Providers Care Counter Help Name Role Phone Yan Demarco MD Primary Care Provider Corin Skinner MD Primary Care Provider Akil Serrano MD Primary Care Provider [phone] Encounter Details Date Type Department Care Team (Late st Contact Info) Description 11/20/2004 Before PRISM Converted Visit (Maple) [facility] - Maple conversion [address] [place] [address] Marvin Gonzalez MD [address] [place] [phone] Social History Tobacco Use Types Packs/Day [...] Description 10/01/2024 13:40 EDT Office Visit [facility] Endocrinology - [facility] [address] [place] [address] Wilder Zaidi, 62 [facility] [address] [place] [address] documented as of this encounter Visit Diagnoses Not on filedocumented in this encounter Care Teams Counter Help Relationship Specialty Start Date End Date Yan Demarco MD [address] [place] [address] PCP - General 08/22/09 02/20/10 Corin Skinner MD [address] [place] [phone] PCP - General 10/24/08 08/21/09 Akil Serrano MD [address] [address] PCP - General 02/21/10 04/16/11 documented as of this encounter
--- OUTSIDE RECORDS SUMMARY | 2024-07-22 13:47 | XMS_ITS | Encounter Summary ---
Author Organization [facility] Address [address] [place] [address] Care Team Providers Care Event Set Up Specialist Name Role Phone Yan Demarco MD Primary Care Provider Corin Skinner MD Primary Care Provider [phone] Akil Serrano MD Primary Care Provider [phone] Encounter Details Date Type Department Care Team (Late st Contact Info) Description 11/28/2004 Before PRISM Converted Visit (Maple) [facility] - Maple conversion [address] [place] [address] Allison Alarcon MD [address] [place] [phone] Social History Tobacco Use Types Packs/Day Years [...] ALARCON MD on 11/29/2004 13:57:39. - ALLISON ALACRON MD /re Voice ID: [id number] Doc ID: [id number] agitation and wailing have to do with pain. Amantadine has been increased, but this is not resulting in a marked change in his overall status. Questionable whether it has increased his agitation. Neurontin is a reasonable medication to start and trial. PLAN: 1. Will start Neurontin 100 mg bid 2. Re-check BUN and sodium tomorrow. - ALLISON ALARCON MD /re Voice ID: [id number] Doc ID: [id number] documented in this encounter Plan of Treatment Upcoming Encounters Date Type Department Care Team (Late st Contact Info) Description 10/01/2024 13:40 EDT Office Visit [facility] Endocrinology - [facility] [address] [place] [address] Wilder Zaidi, DO 62 [facility] [address] [place] [address] documented as of this encounter Visit Diagnoses Not on filedocumented in this encounter Care Teams Event Set Up Specialist Relationship Specialty Start Date End Date Yan Demarco MD [address] [place] [address] PCP - General 08/22/09 02/20/10 Corin Skinner MD [address] [place] [phone] PCP - General 10/24/08 08/21/09 Akil Serrano MD 74 [facility] [address] [place] [address] PCP - General 02/21/10 04/16/11 documented as of this encounter
--- OUTSIDE RECORDS SUMMARY | 2024-07-22 13:47 | XMS_ITS | Encounter Summary ---
Author Organization [facility] Address [address] [place] [address] Care Team Providers Care Roller Printing Supervisor Name Role Phone Yan Demarco MD Primary Care Provider Corin Skinner MD Primary Care Provider [phone] Akil Serrano MD Primary Care Provider [phone] Encounter Details Date Type Department Care Team (Late st Contact Info) Description 11/24/2004 Before PRISM Converted Visit (Maple) [facility] - Maple conversion [address] [place] [address] Kylie Larson MD [address] [place] [phone] Social History Tobacco Use Types Packs/Day Years [...] - KYLIE LARSON MD /re Voice ID: [id number] Doc ID: [id number] - KYLIE LARSON MD /re Voice ID: [id number] Doc ID: [id number] documented in this encounter Plan of Treatment Upcoming Encounters Date Type Department Care Team (Late st Contact Info) Description 10/01/2024 13:40 EDT Office Visit [facility] Endocrinology - [address] [address] Wilder Zaidi, DO 62 [facility] [address] [place] [address] documented as of this encounter Visit Diagnoses Not on filedocumented in this encounter Care Teams Roller Printing Supervisor Relationship Specialty Start Date End Date Yan Demarco MD [address] [place] [address] PCP - General 08/22/09 02/20/10 Corin Skinner MD [address] [place] [phone] PCP - General 10/24/08 08/21/09 Akil Serrano MD [address] [address] PCP - General 02/21/10 04/16/11 documented as of this encounter
--- OUTSIDE RECORDS SUMMARY | 2024-07-22 13:47 | XMS_ITS | Encounter Summary ---
Author Organization [facility] Address [address] [place] [address] Care Team Providers Care Movie Theater Manager Name Role Phone Yan Demarco MD Primary Care Provider Corin Skinner MD Primary Care Provider Akil Serrano MD Primary Care Provider [phone] Encounter Details Date Type Department Care Team (Late st Contact Info) Description 12/06/2004 Before PRISM Converted Visit (Maple) [facility] - Maple conversion [address] [place] [address] Allison Alarcon MD [address] [place] [phone] Social History Tobacco Use Types Packs/Day Years [...] - ALLISON ALARCON MD /re Voice ID: [id number] Doc ID: [id number] ir recommendations later this afternoon. PLAN: 1. Discontinue amantadine. 2. Start Ritalin give dose today then start him tomorrow morning. 3. Offer Percocet as an alternative to codeine. 4. Will flush the PICC with heparin every day to hopefully decrease clotting off. 5. Check BUN, creatinine, sodium, and free T4 tomorrow. 6. UA/C and S. - ALLISON ALARCON MD /re Voice ID: [id number] Doc ID: [id number] documented in this encounter Plan of Treatment Upcoming Encounters Date Type Department Care Team (Late st Contact Info) Description 10/01/2024 13:40 EDT Office Visit [facility] Endocrinology - [facility] [address] [place] [address] Wilder Zaidi, DO 62 [facility] [address] [place] [address] documented as of this encounter Visit Diagnoses Not on filedocumented in this encounter Care Teams Movie Theater Manager Relationship Specialty Start Date End Date Yan Demarco MD [address] [place] [address] PCP - General 08/22/09 02/20/10 Corin Skinner MD [address] [place] [phone] PCP - General 10/24/08 08/21/09 Akil Serrano MD [address] [facility] [address] [place], [place] [address] PCP - General 02/21/10 04/16/11 documented as of this encounter
--- OUTSIDE RECORDS SUMMARY | 2024-07-22 13:47 | XMS_ITS | Encounter Summary ---
Author Organization [facility] Address [address] [place] [address] Care Team Providers Care Triage Register Nurse Name Role Phone Yan Demarco MD Primary Care Provider Corin Skinner MD Primary Care Provider [phone] Encounter Details Date Type Department Care Team (Late st Contact Info) Description 12/31/2004 Office Visit [facility] - Maple conversion [address] [place] [address] Yan Guadarrama MD 111 [facility], Level [address] [place] [address] Social History Tobacco Use Types [...] 23:08) Addenda for MIGUEL ANGEL MASON VisitID: [id number] Date: 12/31/2004 12/31/2004 22:44 transferred from rehab [...] Unable to quantify level of pain. Treatment SHIPPING HAND: (Pain meds at rehab). PAST HX: No [...] --0106 Raleigh Lazo R.N. [facility] [place] [facility] --0322 Milady Taveras R.N. [place] by [place] with nurse and tech. --0348 Milady Taveras R.N. (Pt agitated at CT. Pt moving and screaming unable to verbally calm pt. Mother at bedside). --0349 Milady Taveras R.N. LORAZEPAM 1mg diluted with NS IVP over 2 minutes. IV patency established. IV site checked: no pain,redness, or swelling. IV flushed thoroughly pre- and post- medication administration. Sedative drug warning given to thefamily. --034 Milady Taveras R.N. Patient returned from CT [...] DISPOSITION / DISCHARGE Transported via stretcher by [email or web address]. Report was given (to Deb Garcia). --12 Tenisha Heredia, Nurse Associate. Clara Guzman R.N., R.N., Nurse Associate. Locked/Released at 01/02/2005 9:37 by Rachel Reynolds R.N. documented in this encounter Plan of Treatment Upcoming Encounters Date Type Department Care Team (Late st Contact Info) Description 10/01/2024 13:40 EDT Office Visit [facility] Endocrinology - [facility] [address] [place] [address] Wilder Zaidi, 62 [facility] [address] [place] [address] documented as of this encounter Visit Diagnoses Not on filedocumented in this encounter Care Teams Triage Register Nurse Relationship Specialty Start Date End Date Yan Demarco MD [address] [place] [address] PCP - General 08/22/09 02/20/10 Corin Skinner MD [address] [place] [phone] PCP - General 10/24/08 08/21/09 documented as of this encounter
--- OUTSIDE RECORDS SUMMARY | 2024-07-22 13:47 | XMS_ITS | Encounter Summary ---
Author Organization [facility] Address [address] [place] [address] Care Team Providers Care Forging Press Lever Tender Name Role Phone Unavailable Primary Care Provider Unavailabl e Encounter Details Date Type Department Care Team (Latest Contact Info) Description 01/15/2005 12:20 EDT - 03/28/2005 11:59 EDT Hospital Encounter [facility] Rehabilitation Therapy Unit Level 2 [address] [place] [address] Allison Alarcon MD [address] [place] [phone] Discharge Disposition: Nursing Facility (Skilled) Social History [...] admitted to the inpatient rehabilitation service at [facility] on November 20, 2004. From a [...] She will continue to reside in the [place] area and she presently requires hemodialysis three times a week. She will make attempts to travel and visit her son in the facility when able. DISCHARGE PLAN: 1. Transfer to [facility] for continuation of subacute level rehab services. 2. 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 The following recommendations are being given by the pediatric endocrinology service. Further questions can be referredto the endocrinology service at [facility] by calling and asking to be connected to the endocrinology service director of business continuity and if available, Dr. Davin Edwards, the pediatric sausage mixer. a. For management of his central diabetes [...] dictation. 5. If patient returns to the [facility] at some point, patients previous [...] Alarcon MD A - mt Job ID: [id number] Document ID: [id number] cc: MD Kris Mccauley MD Christa M Zehle, MD Paul James Zimakas, MD *Floresita Ramos MD, [facility], [address], [place] [address] documented in this encounter Discharge Disposition Disposition [...] [facility] that will be his primary physician there yesterday. PLAN: 1. Discharge from our services. 2. Transfer to [facility]. 3. Dictation of discharge summary. (Discharge work, greater than 30 minutes.) Signed by Allison Alarcon MD 03/29/2005 08:45 Sky Hollingsworth MD Allison Alarcon MD - Allison Alarcon MD P - lr Job ID: [id number] Document ID: [id number] cc: * Raleigh Castañeda MD - 03/28/2005 [...] Castañeda MD A - mt Job ID: [id number] Document ID: [id number] cc: * Allison Alarcon MD - 03/27/2005 [...] Lengthy discussion with his receiving [facility] [place] multiple issues and needs. PLAN: 1. Recheck [...] Alarcon MD A - mt Job ID: [id number] Document ID: [id number] cc: * Raleigh Castañeda MD - 03/27/2005 [...] Castañeda MD A - chelle Job ID: [id number] Document ID: [id number] cc: * Allison Alarcon MD - 03/26/2005 [...] confirms the patient will be transferred to [facility] on . ASSESSMENT: patient status post CVA with craniopharyngioma. The patient still has difficulty calming himself and communicating needs appropriately when he gets more anxious or frustrated. Final details of MRI planned for tomorrow confirmed with the floor company secretary. Also discussed with ENT for them to evaluate him for foreign bodies in his right ear canal. [facility] Sodium levels are showing good [...] Alarcon MD A - re Job ID: [id number] Document ID: [id number] cc: * Raleigh Castañdea MD - 03/26/2005 0000 EDT INPATIENT PROGRESS [...] Castañeda MD A - ss Job ID: [id number] Document ID: [id number] cc: * Allison Alarcon MD - 03/25/2005 [...] Alarcon MD A - mt Job ID: [id number] Document ID: [id number] cc: * Raleigh Castañeda MD - 03/25/2005 [...] Castañeda MD P - lr Job ID: [id number] Document ID: [id number] cc: * Allison Alarcon MD - 03/24/2005 [...] Alarcon MD A - mt Job ID: [id number] Document ID: [id number] cc: * Allison Alarcon MD - 03/23/2005 [...] Alarcon MD A - re Job ID: [id number] Document ID: [id number] cc: * Raleigh Castañeda MD - 03/22/2005 [...] Castañeda MD P - lr Job ID: [id number] Document ID: [id number] cc: * Wicho Carlton MD - 03/22/2005 [...] Carlton MD P - lr Job ID: [id number] Document ID: [id number] cc: * Allison Alarcon MD - 03/21/2005 0000 EDT INPATIENT PROGRESS NOTE PT LOC: F002 Service Date: 03/21/2005 DIAGNOSIS: Bilateral cerebrovascular accidents/panhypopituitarism. SUBJECTIVE: Miguel Angel responsive and awake this morning. Denying any pain. Participating in therapies. OBJECTIVE: Vital signs are stable. Affect pleasant. Left hemiparesis continues. Verbal output remains with dysarthria. ASSESSMENT: CVA with panhypopituitarism. Anticipated discharge today to [facility] has been delayed to administrative and approval issues from the Medicaid system per our social services aide. Mom has been informed. In that the [...] coordinate this were covered at length with tech intern today. Reviewed with mom availability. PLAN: 1. [...] will be able to be transferred to [facility] on that day. (Fifty minutes total time, greater than 50% direct patient and family discussion of issues as aboveand care coordination with team.) Signed by Allison Alarcon MD 03/23/2005 16:47 Sky Hollingsworth MD Allison Alarcon MD - Allison Alarcon MD A - mt Job ID: [id number] Document ID: [id number] cc: * Raleigh Castañeda MD - 03/21/2005 [...] Castañeda MD P - lr Job ID: [id number] Document ID: [id number] cc: * Allison Alarcon MD - 03/20/2005 [...] been approved and cleared for transfer to [facility] tomorrow. Mom is aware that this [...] Alarcon MD A - mt Job ID: [id number] Document ID: [id number] cc: * Raleigh Castañeda MD - 03/20/2005 [...] Raleigh Castañeda MD 04/01/2005 13:54 Dena Castañ[facility], [facility] Raleigh Castañeda MD - Raleigh Castañeda MD A - re Job ID: [id number] Document ID: [id number] cc: * Allison Alarcon MD - 03/19/2005 [...] work reports patient has been accepted at [facility]. This final plan is to be reviewed with mom. Miguel Angel has not yet been informed. Staff are videotaping sessions to help give the next staff a baseline of where his sessions have been at and what to continue to work with. [facility] has also asked for a PPD [...] with the patientprimary care physician from the [facility], Dr. Drew, who was here to see him. Reviewed the medical issues on him at present and focus of care. Dr. Drew indicates he feels he has made excellent progress. At present, there still is not enough staff or support in the [facility] to return him to a home environment. PLAN: 1. PPD to be placed today. 2. Social work working on contacting the mom, who is out of the hospital today, to start establishing a firm plan for when patient will be transferred to [facility] potentially or next Friday. 3. Continue all present medications. 4. Reinforce patient needs to have between 2 to 2.5 liters in fluids per day. Forty minutes total time, greater then 50% care coordination with team. Signed by Allison Alarcon MD 03/20/2005 08:43 Sky Hollingsworth MD Allison Alarcon MD - Allison Alarcon MD A - mt Job ID: [id number] Document ID: [id number] cc: * Raleigh Castañeda MD - 03/19/2005 [...] Raleigh Castañeda MD 03/27/2005 17:21 Dena Castañ[place], [facility]. [facility] MD Raleigh Castañeda MD - Raleigh Castañeda MD A - mt Job ID: [id number] Document ID: [id number] cc: * Allison Alarcon MD - 03/18/2005 [...] Alarcon MD A - mt Job ID: [id number] Document ID: [id number] cc: * Raleigh Castañeda MD - 03/18/2005 [...] Castañeda MD A - re Job ID: [id number] Document ID: [id number] cc: * Raleigh Castañeda MD - 03/17/2005 [...] Castañeda MD A - ss Job ID: [id number] Document ID: [id number] cc: * Raleigh Castañeda MD - 03/16/2005 [...] Raleigh Castañeda MD 03/26/2005 10:01 Dena Castañeda, [place]. [facility] MD Raleigh Castañeda MD - Raleigh Castañeda MD P - lr Job ID: [id number] Document ID: [id number] cc: * Wicho Carlton MD - 03/15/2005 [...] Carlton MD P - re Job ID: [id number] Document ID: [id number] cc: * Raleigh Castañeda MD - 03/15/2005 [...] Castañeda MD A - lr Job ID: [id number] Document ID: [id number] cc: * Allison Alarcon MD - 03/14/2005 [...] Alarcon MD A - mt Job ID: [id number] Document ID: [id number] cc: * Raleigh Castañeda MD - 03/14/2005 [...] Castañeda MD P - mh Job ID: [id number] Document ID: [id number] cc: * Allison Alarcon MD - 03/13/2005 [...] Alarcon MD A - re Job ID: [id number] Document ID: [id number] cc: * Raleigh Castañeda MD - 03/13/2005 [...] Castañeda MD P - mh Job ID: [id number] Document ID: [id number] cc: * Allison Alarcon MD - 03/12/2005 [...] Alarcon MD A - mt Job ID: [id number] Document ID: [id number] cc: * Raleigh Castañeda MD - 03/12/2005 [...] Castañeda MD P - mt Job ID: [id number] Document ID: [id number] cc: * Kris Thomas MD - 03/11/2005 [...] Kris Thomas MD P - Job ID: [id number] Document ID: [id number] cc: * Kris Thomas MD - 03/10/2005 [...] Kris Thomas MD P - Job ID: [id number] Document ID: [id number] cc: * Kris Thomas MD - 03/09/2005 [...] Thomas MD P - mh Job ID: [id number] Document ID: [id number] cc: * Wicho Carlton MD - 03/08/2005 [...] Carlton MD P - re Job ID: [id number] Document ID: [id number] cc: * Raleigh Castañeda MD - 03/08/2005 [...] Raleigh Castañeda MD P - Job ID: [id number] Document ID: [id number] cc: * Raleigh Castañeda MD - 03/07/2005 [...] Castañeda MD A - re Job ID: [id number] Document ID: [id number] cc: * Wicho Cartlon MD - 03/07/2005 0000 EDT INPATIENT PROGRESS [...] Carlton MD P - ss Job ID: [id number] Document ID: [id number] cc: * Raleigh Castañeda MD - 03/06/2005 [...] MD - Raleigh Castañeda MD P - anesthesiologist and critical care Job ID: [id number] Document ID: [id number] cc: * Wicho Carlton MD - 03/06/2005 [...] Carlton MD A - mt Job ID: [id number] Document ID: [id number] cc: * Wicho Carlton MD - 03/05/2005 [...] disposition options, as well, as discussed with transition social worker. Apparently,his bridge rigger is uncertain whether he can meet his ongoing needs. He is planning isha in the area in approximately two weeks and said he could tentatively make a decision at that point. Subacute level programs are being pursued and the patients mother is aware as I discussed with her. Signed by Wicho Carlton MD 03/05/2005 15:58 Nadine Garcia MD Wicho Cartlon MD - Wicho Carlton MD P - ss Job ID: [id number] Document ID: [id number] cc: * Raleigh Castañeda MD - 03/05/2005 [...] Castañeda MD A - re Job ID: [id number] Document ID: [id number] cc: * Raleigh Castañeda MD - 03/04/2005 [...] Castañeda MD A - ss Job ID: [id number] Document ID: [id number] cc: * Wicho Carlton MD - 03/04/2005 0000 EDT INPATIENT PROGRESS NOTE PT LOC: F002 Service Date: 03/04/2005 Miguel Angel appears to be more agitated over the last several days with uncertain etiology. Vital signs are stable, afebrile. Heart regular, lungs clear. Abdomen: G-tube is intact. Calves soft and nontender. Neurologic without change. IMPRESSION: 1. Craniopharyngioma resection: Continue present therapy program. services advisor is actively involved. I am of the understanding that outside agencies are going to be looking at him this week. 2. Hyponatremia: Continue to monitor intermittently. Signed by Wicho Carlton MD 03/05/2005 15:58 Nadine Garcia MD Wicho Carlton MD - Wicho Carlton MD P - ss Job ID: [id number] Document ID: [id number] cc: * Drew Larson MD - 03/03/2005 [...] Larson MD A - re Job ID: [id number] Document ID: [id number] cc: * Raleigh Castañeda MD - 03/02/2005 [...] Castañeda MD A - chelle Job ID: [id number] Document ID: [id number] cc: * Raleigh Castañeda MD - 03/01/2005 [...] MD - Raleigh Castañeda MD A - anesthesiologist and critical care Job ID: [id number] Document ID: [id number] cc: * Wicho Carlton MD - 02/28/2005 [...] elevated but stable. [facility]. Signed by Wicho Carlton MD 02/28/2005 14:08 Nadine Garcia MD Wicho Carlton MD - Wicho Carlton MD P - ss Job ID: [id number] Document ID: [id number] cc: * Raleigh Castañeda MD - 02/28/2005 [...] Castañeda MD A - mt Job ID: [id number] Document ID: [id number] cc: * Wicho Carlton MD - 02/27/2005 [...] Carlton MD A - ss Job ID: [id number] Document ID: [id number] cc: * Raleigh Castañeda MD - 02/27/2005 [...] Castañeda MD A - re Job ID: [id number] Document ID: [id number] cc: * Wicho Carlton MD - 02/26/2005 [...] Carlton MD A - ss Job ID: [id number] Document ID: [id number] cc: * Raleigh Castañeda MD - 02/26/2005 [...] Castañeda MD A - re Job ID: [id number] Document ID: [id number] cc: * Wicho Carlton MD - 02/25/2005 [...] Carlton MD P - ss Job ID: [id number] Document ID: [id number] cc: * Raleigh Castañeda MD - 02/25/2005 0000 EDT INPATIENT PROGRESS NOTE PT LOC: F002 Service Date: 02/25/2005 Mr. Burgos is a 86-aost-pijbemmuckfnz from resection of craniopharyngioma with resultant stroke syndrome and panhypopituitarism. Other issues include fatty liver infiltration and hypertriglyceridemia. Vital signs are stable, the patient is afebrile. Cardiac rhythm is regular. Lung medellin are clear. Abdomen is soft. JVD is not visible. ASSESSMENT/PLAN: Continue multihormonal for support of panhypopituitarism. Continue low-dose niacinfor hypertriglyceridemia. Signed by Raleigh Castañeda MD 02/28/2005 15:20 Dena Castañeda, iPpe Castañeda MD Raleigh Castañeda MD - Raleigh Castañeda MD P - ss Job ID: [id number] Document ID: [id number] cc: * Allison Alarcon MD - 02/24/2005 [...] to try and help with some of [place] behaviors. PLAN: 1. Change Ritalin to 15 mg q.a.m. and 5 mg q.p.m. 2. Start risperidone 1 mg p.o. q.p.m. 3. Labs as ordered for tomorrow. Allow Robaxin as a p.r.n. for discomfort at night. Signed by Allison Alarcon MD 02/26/2005 23:34 Sky Hollingsworth MD Allison Alarcon MD - Allison Alarcon MD A - re Job ID: [id number] Document ID: [id number] cc: * Allison Alarcon MD - 02/23/2005 [...] Alarcon MD P - lr Job ID: [id number] Document ID: [id number] cc: * Wicho Carlton MD - 02/22/2005 [...] Carlton MD P - ss Job ID: [id number] Document ID: [id number] cc: * Raleigh Castañeda MD - 02/22/2005 [...] Castañeda MD A - mt Job ID: [id number] Document ID: [id number] cc: * Allison Alarcon MD - 02/21/2005 [...] primary care physician, Dr. Drew, in the [place] area and reviewed with him the concerns regarding Robinpotential return to the [facility]. Details of agency management still [...] patient contact and care coordination with [facility]). Signed by Allison Alarcon MD 02/23/2005 17:08 ACarol Sunni Alarcon MDCarol Sunni Alarcon MD Allison Alarcon MD - Allison Alarcon MD A - re Job ID: [id number] Document ID: [id number] cc: * Raleigh Castañeda MD - 02/21/2005 [...] Castañeda MD A - ss Job ID: [id number] Document ID: [id number] cc: * Allison Alarcon MD - 02/20/2005 [...] need back from his team in the [facility] area in terms of their [...] Alarcon MD A - ss Job ID: [id number] Document ID: [id number] cc: * Raleigh Castañeda MD - 02/20/2005 [...] Castañeda MD A - re Job ID: [id number] Document ID: [id number] cc: * Raleigh Castañeda MD - 02/19/2005 [...] Castañeda MD A - mt Job ID: [id number] Document ID: [id number] cc: * Allison Alarcon MD - 02/19/2005 [...] if needed. Met also with [place] social services aide out of his primary careoffice, who continues to follow. There was a case management meeting called last week in his local area. Primary care physician still concerned that there are not sufficient services that are going to be available in the local area from a home therapy standpoint, as well as needing to have a clear understanding of [place] behaviors and a good behavioral back-up plan. [...] Alarcon MD A - re Job ID: [id number] Document ID: [id number] cc: * Allison Alarcon MD - 02/18/2005 [...] Alarcon MD P - ss Job ID: [id number] Document ID: [id number] cc: * Raleigh Castañeda MD - 02/18/2005 [...] Castañeda MD A - ss Job ID: [id number] Document ID: [id number] cc: * Drew Larson MD - 02/17/2005 [...] will repeat labs tomorrow. Primary service will pickle maker anychanges in his LFTs andrefer to appropriate specialists as necessary. Dr. Castañeda will continue to follow closely. Electrolytes generally are under adequate control today. Follow-up electrolytes for tomorrow. Signed by Drew Larson MD 02/18/2005 11:45 Leroy Boateng MD Drew Larson MD - Drew Larson MD P - re Job ID: [id number] Document ID: [id number] cc: * Drew Larson MD - 02/16/2005 [...] Larson MD P - re Job ID: [id number] Document ID: [id number] cc: * Raleigh Castañeda MD - 02/15/2005 [...] Castañeda MD A - ss Job ID: [id number] Document ID: [id number] cc: * Raleigh Castañeda MD - 02/14/2005 [...] Castañeda MD P - mt Job ID: [id number] Document ID: [id number] cc: * Allison Alarcon MD - 02/14/2005 [...] Alarcon MD A - mt Job ID: [id number] Document ID: [id number] cc: * Allison Alarcon MD - 02/13/2005 [...] Alarcon MD A - [place] Job ID: [id number] Document ID: [id number] cc: * Raleigh Castañeda MD - 02/13/2005 [...] Castañeda MD P - mh Job ID: [id number] Document ID: [id number] cc: * Allison Alarcon MD - 02/12/2005 [...] Dr. Edwards, who definitely [facility] and his foster parents [...] Alarcon MD A - mt Job ID: [id number] Document ID: [id number] cc: * Raleigh Castañeda MD - 02/12/2005 [...] Castañeda MD P - mh Job ID: [id number] Document ID: [id number] cc: * Raleigh Castañeda MD - 02/11/2005 [...] Castañeda MD P - mh Job ID: [id number] Document ID: [id number] cc: * Allison Alarcon MD - 02/11/2005 [...] and have education provided by a pediatric sausage mixer. Sodium continues to fluctuate be within an [...] Alarcon MD A - mo Job ID: [id number] Document ID: [id number] cc: * Allison Alarcon MD - 02/10/2005 [...] Alarcon MD A - mo Job ID: [id number] Document ID: [id number] cc: * Jai Barrera MD - 02/09/2005 [...] Signed by Jai Barrera MD 02/13/2005 15:02 Shvi Lucas MD Jai Barrera MD - Jai Barrera MD A - nc Job ID: [id number] Document ID: [id number] cc: * Raleigh Castañeda MD - 02/08/2005 [...] Castañeda MD A - mt Job ID: [id number] Document ID: [id number] cc: * Wicho Carlton MD - 02/08/2005 [...] Carlton MD A - mt Job ID: [id number] Document ID: [id number] cc: * Allison Alarcon MD - 02/07/2005 [...] Conference: Met with social work and nurse transplant case manager from his local area and [...] Alarcon MD A - mt Job ID: [id number] Document ID: [id number] cc: * Raleigh Castañeda MD - 02/07/2005 [...] Pipe Corey MD Raleigh Castañeda MD - aRleigh Castañeda MD P - lr Job ID: [id number] Document ID: [id number] cc: * Allison Alarcon MD - 02/06/2005 [...] Alarcon MD A - re Job ID: [id number] Document ID: [id number] cc: * Raleigh Castañeda MD - 02/06/2005 [...] Castañeda MD A - re Job ID: [id number] Document ID: [id number] cc: * Allison Alarcon MD - 02/05/2005 [...] Alarcon MD A - re Job ID: [id number] Document ID: [id number] cc: * Raleigh Castañeda MD - 02/05/2005 [...] Castañeda MD P - lr Job ID: [id number] Document ID: [id number] cc: * Wicho Carlton MD - 02/04/2005 [...] Carlton MD P - mo Job ID: [id number] Document ID: [id number] cc: * Raleigh Castañeda MD - 02/04/2005 [...] Castañeda MD A - mt Job ID: [id number] Document ID: [id number] cc: * Raleigh Castañeda MD - 02/03/2005 [...] Raleigh Castañeda MD A - Job ID: [id number] Document ID: [id number] cc: * Drew Larson MD - 02/02/2005 [...] Larson MD P - lr Job ID: [id number] Document ID: [id number] cc: * Wicho Carlton MD - 02/01/2005 [...] Carlton MD P - ss Job ID: [id number] Document ID: [id number] cc: * Raleigh Castañeda MD - 02/01/2005 [...] Castañeda MD P - mh Job ID: [id number] Document ID: [id number] cc: * Raleigh Castañeda MD - 01/31/2005 [...] Castañeda MD P - lr Job ID: [id number] Document ID: [id number] cc: * Wicho Carlton MD - 01/30/2005 0000 EDT INPATIENT PROGRESS NOTE PT LOC: F002 Service Date: 01/30/2005 The patient is relatively calm this morning. He was evaluated by transition social worker yesterday at the [facility] for evaluation of next appropriate setting. [...] and Zoloft. DISPOSITION: Social ervices at the [facility] is working with Lashon Lawton the [facility] to help assess placement issues. Case discussed with transition social worker this morning. Signed by Wicho Carlton MD 01/31/2005 08:05 Nadine Garcia MD Wicho Carlton MD - Wicho Carlton MD A - re Job ID: [id number] Document ID: [id number] cc: * Raleigh Castañeda MD - 01/30/2005 [...] Castañeda MD P - re Job ID: [id number] Document ID: [id number] cc: * Wicho Carlton MD - 01/29/2005 [...] Nadine Garcia MD Wicho Carlton MD - Wciho Carlton MD P - mo Job ID: [id number] Document ID: [id number] cc: * Raleigh Castañeda MD - 01/29/2005 [...] Castañeda MD P - re Job ID: [id number] Document ID: [id number] cc: * Wicho Carlton MD - 01/28/2005 [...] Carlton MD P - chelle Job ID: [id number] Document ID: [id number] cc: * Raleigh Castañeda MD - 01/28/2005 [...] Castañeda MD P - lr Job ID: [id number] Document ID: [id number] cc: * Wicho Carlton MD - 01/27/2005 [...] Carlton MD P - re Job ID: [id number] Document ID: [id number] cc: * Wicho Carlton MD - 01/26/2005 [...] Carlton MD P - lr Job ID: [id number] Document ID: [id number] cc: * Wicho Carlton MD - 01/25/2005 [...] Carlton MD P - ss Job ID: [id number] Document ID: [id number] cc: * Raleigh Castañeda MD - 01/25/2005 [...] Castañeda MD A - mt Job ID: [id number] Document ID: [id number] cc: * Allison Alarcon MD - 01/24/2005 [...] Alarcon MD A - [place] Job ID: [id number] Document ID: [id number] cc: A - mo Job ID: [id number] Document ID: [id number] cc: * Raleigh Castañeda MD - 01/24/2005 [...] Castañeda MD P - re Job ID: [id number] Document ID: [id number] cc: * Allison Alarcon MD - 01/23/2005 [...] Alarcon MD A - ss Job ID: [id number] Document ID: [id number] cc: * Raleigh Castañeda MD - 01/23/2005 [...] Castañeda MD P - ss Job ID: [id number] Document ID: [id number] cc: * Allison Alarcon MD - 01/22/2005 [...] 5. Med psych to talk to prior transplant case manager and discuss medication regimen options. 6. Allow Percocet and Benadryl. 7. Team to work on behavioral plan with MEd Psych. minutes total time, greater than 50% direct patient, family education and care coordination with team). Signed by Allison Alarcon MD 01/23/2005 09:29 ACaSky Dumont MD Allison Alarcon MD - Allison Alarcon MD A - RE Job ID: [id number] Document ID: [id number] cc: * Raleigh Castañeda MD - 01/22/2005 [...] Castañeda MD P - ss Job ID: [id number] Document ID: [id number] cc: * Allison Alarcon MD - 01/21/2005 [...] Alarcon MD A - ss Job ID: [id number] Document ID: [id number] cc: * Raleigh Castañeda MD - 01/21/2005 [...] Castañeda MD P - lr Job ID: [id number] Document ID: [id number] cc: * Drew Larson MD - 01/20/2005 [...] him on the rehab unit with a supervisor public health nursing wheeling him around. When he is distracted, [...] Larson MD A - chelle Job ID: [id number] Document ID: [id number] cc: * Raleigh Castañeda MD - 01/19/2005 [...] Castañeda MD P - re Job ID: [id number] Document ID: [id number] cc: * Wicho Carlton MD - 01/18/2005 [...] Carlton MD A - re Job ID: [id number] Document ID: [id number] cc: * Raleigh Castañeda MD - 01/18/2005 0000 EDT INPATIENT PROGRESS NOTE PT LOC: F002 Service Date: 01/18/2005 Mr. Burgos is a 28-zzdi-ymvpbpgvmxenc from resection of a craniopharyngioma with secondary [...] Raleigh Castañeda MD 01/25/2005 11:39 Dena Castañeda, [facility]. [facility] MD Raleigh Castañeda MD - Raleigh Castañeda MD A - ss Job ID: [id number] Document ID: [id number] cc: * Allison Alarcon MD - 01/17/2005 [...] Alarcon MD P - lr Job ID: [id number] Document ID: [id number] cc: * Allison Alarcon MD - 01/16/2005 [...] Alarcon MD A - re Job ID: [id number] Document ID: [id number] cc: documented in this encounter Plan of Treatment Upcoming Encounters Date Type Department Care Team (Late st Contact Info) Description 10/01/2024 13:40 EDT Office Visit [facility] Endocrinology - [facility] [address] [place] [address] Wilder Zaidi, [address] [facility] [address] [place] [address] documented as of this encounter [...] encounter Results * SODIUM (03/26/2005 6:50 EDT) Pathologist [facility] Sodium 140 136 - 145 mEq/L [facility] Comment:Performed at [facility], [place], [place] 03/26/2005 6:50 EDT 03/26/2005 7:12 EDT us Allison Alarcon MD CHEMISTRY & BLOOD GAS ORDERA BLES Final Result Performing Organization Address [facility] Co de Phone Number [facility] [address] [place] [address] * (ABNORMAL) LIPID PROFILE (INCLUDES CHOLESTEROL, TRIGLYCERIDES, HDL, LDL) (03/22/2005 6:35 EDT) Cholesterol 174 mg/dl [facility] Comment: Desirable:<200 Borderline:200-239 High Risk:>sp=476 Triglycerides 675(H) 34 - 165 mg/dl [facility] Comment:Performed at [facility], [place], [place] HDL 24 mg/dl [facility] Comment: Highly Desirable:>60 Desirable:35-60 High Risk:<35 FASTING LDL, Calculated Triglyceride greater than 400 mg/dl, LDL calculation invalid. Desirable:<130 Borderline:130- 159 High Risk:>qe=664 mg/dl [facility] Comment:FASTING Chol/HDL Ratio 7.3 FASTING [facility] Fasting? Yes [facility] 03/22/2005 6:35 EDT 03/22/2005 6:49 EDT us Allison Alarcon MD CHEMISTRY & BLOOD GAS ORDERA BLES Final Result Performing Organization Address [facility] Co de Phone Number [facility] [address] [place] [address] * (ABNORMAL) AST (03/22/2005 6:35 EDT) AST 86(H) 16 - 38 U/L [facility] Comment:Performed at [facility] [place] 03/22/2005 6:35 EDT 03/22/2005 6:49 EDT us Allison Alarcon MD CHEMISTRY & BLOOD GAS ORDERA BLES Final Result Performing Organization Address [facility] Co de Phone Number [facility] [address] [place] [address] * (ABNORMAL) ALT (03/22/2005 6:35 EDT) ALT 335(H) 10 - 45 U/L [facility] Comment:Performed at [place], [place] 03/22/2005 6:35 EDT 03/22/2005 6:49 EDT us Allison Alarcon MD CHEMISTRY & BLOOD GAS ORDERA BLES Final Result Performing Organization Address [facility] Co de Phone Number [facility] [address] [place] [address] * ALKALINE PHOSPHATASE (03/22/2005 6:35 EDT) Total Alkaline Phosphatase 309 130 - 525 U/L [facility] Comment:Performed at [place], [place] 03/22/2005 6:35 EDT 03/22/2005 6:49 EDT us Allison Alarcon MD CHEMISTRY & BLOOD GAS ORDERA BLES Final Result Performing Organization Address [facility] Co de Phone Number [facility] [address] [place] [address] * (ABNORMAL) SODIUM (03/20/2005 6:45 EDT) Sodium 149(H) 136 - 145 mEq/L [facility] Comment:Performed at [place] 03/20/2005 6:45 EDT 03/20/2005 6:47 EDT us Allison Alarcon MD CHEMISTRY & BLOOD GAS ORDERA BLES Final Result Performing Organization Address [facility] Co de Phone Number [facility] [address] [place] [address] * (ABNORMAL) SODIUM (03/18/2005 6:45 EDT) Sodium 148(H) 136 - 145 mEq/L [facility] Comment:Performed at [place], [place] 03/18/2005 6:45 EDT 03/18/2005 6:56 EDT us Allison Alarcon MD CHEMISTRY & BLOOD GAS ORDERA BLES Final Result Performing Organization Address [facility] de Phone Number [facility] [address] [place] [address] * GLUCOSE, GLUCOMETER (03/15/2005 5:32 EDT) Glucose, Fingerstick 89 70 - 110 mg/dl [facility] Grey Roll Worker ID [id number] Test Performed by Nursing Services [facility] 03/15/2005 5:32 EDT 03/15/2005 22:32 EDT us Allison Alarcon MD CHEMISTRY & BLOOD GAS ORDERA BLES Final Result Performing Organization Address [facility] de Phone Number [facility] [address] [place] [address] * SODIUM (03/14/2005 6:25 EDT) Sodium 145 136 - 145 mEq/L [facility] Comment:Performed at [facility] [place] 03/14/2005 6:25 EDT 03/14/2005 6:53 EDT us Allison Alarcon MD CHEMISTRY & BLOOD GAS ORDERA BLES Final Result Performing Organization Address [facility] de Phone Number [facility] [address] [place] [address] * (ABNORMAL) SODIUM (03/13/2005 6:00 EDT) Sodium 152(H) 136 - 145 mEq/L [facility] Comment:Performed at [facility] [place] 03/13/2005 6:00 EDT 03/13/2005 6:59 EDT us Allison Alarcon MD CHEMISTRY & BLOOD GAS ORDERA BLES Final Result Performing Organization Address [facility] de Phone Number [facility] [address] [place] [address] * (ABNORMAL) SODIUM (03/12/2005 17:04 EDT) Pathologist [facility] Sodium 151(H) 136 - 145 mEq/L [facility] Comment:Slight hemolysis 03/12/2005 17:0 4 EDT 03/12/2005 17:05 EDT Allison Alarcon MD CHEMISTRY & BLOOD GAS ORDERA BLES Final Result [facility] [address] [place] [address] * (ABNORMAL) TRIGLYCERIDE (03/06/2005 6:25 EDT) [facility] Triglycerides 342(H) 34 - 165 mg/dl [facility] Comment:Performed at [place], [place] 03/06/2005 6:25 EDT 03/06/2005 6:32 EDT us Allison Alarcon MD CHEMISTRY & BLOOD GAS ORDERA BLES Final Result Performing Organization Address [facility] Co de Phone Number [facility] [address] [place] [address] * T3, TOTAL (03/06/2005 6:25 EDT) Pathologist [facility] T3, Total 147 60 - 181 ng/dl [facility] 03/06/2005 6:25 EDT 03/06/2005 6:32 EDT us Allison Alarcon MD CHEMISTRY & BLOOD GAS ORDERA BLES Final Result Performing Organization Address [facility] Co de Phone Number [facility] [address] [place] [address] * GLUCOSE, SERUM (03/06/2005 6:25 EDT) Pathologist [facility] Glucose, Serum 90 70 - 110 mg/dl [facility] Comment:Performed at [place], [place] 03/06/2005 6:25 EDT 03/06/2005 6:32 EDT us Allison Alarcon MD CHEMISTRY & BLOOD GAS ORDERA BLES Final Result Performing Organization Address [facility] de Phone Number [facility] [address] [place] [address] * PREALBUMIN (03/06/2005 6:25 EDT) Prealbumin 35 mg/dl [facility] 03/06/2005 6:25 EDT 03/06/2005 6:32 EDT us Allison Alarcon MD CHEMISTRY & BLOOD GAS ORDERA BLES Final Result Performing Organization Address [facility] de Phone Number [facility] [address] [place] [address] * (ABNORMAL) ELECTROLYTES (03/06/2005 6:25 EDT) Sodium 147(H) 136 - 145 mEq/L [facility] Potassium 4.6 3.6 - 5.2 mEq/L [facility] Chloride 111(H) 96 - 110 mEq/L [facility] CO2 25 24 - 32 mEq/L [facility] Comment:Performed at [facility] [place], [place] 03/06/2005 6:25 EDT 03/06/2005 6:32 EDT Allison Alarcon MD CHEMISTRY & BLOOD GAS ORDERA BLES Final Result Performing Organization Address [facility] de Phone Number [facility] [address] [place] [address] * (ABNORMAL) HEMAGRAM (03/06/2005 6:25 EDT) WBC 5.50 4.5 - 13.0 K/cmm [facility] RBC 4.62 4.50 - 5.30 M/cmm [facility] Hemoglobin 12.8(L) 13.0 - 16.0 gm/dl [facility] HCT 37.4 37.0 - 49.0 % [facility] MCV 81 78 - 98 fl [facility] MCH 27.6 pg [facility] MCHC 34.1 gm/dl [facility] PLT 346(H) 156 - 312 K/cmm [facility] RDW-CV 15.2 % [facility] Comment:Performed at [facility] [place] 03/06/2005 6:25 EDT 03/06/2005 6:32 EDT us Allison Alarcon MD HEMATOLOGY & PF4 ORDERABLES Final Result [facility] [address] [place] [address] * T4 FREE (03/06/2005 6:25 EDT) Free T4 1.0 0.8 - 1.8 ng/dl [facility] 03/06/2005 6:25 EDT 03/06/2005 6:32 EDT us Allison Alarcon MD CHEMISTRY & BLOOD GAS ORDERA BLES Final Result Performing Organization Address [facility] Co de Phone Number [facility] [address] [place] [address] * T3 FREE (03/06/2005 6:25 EDT) T3, Free 2.6 2.3 - 4.2 pg/mL [facility] 03/06/2005 6:25 EDT 03/06/2005 6:32 EDT us Allison Alarcon MD CHEMISTRY & BLOOD GAS ORDERA BLES Final Result Performing Organization Address [facility] Co de Phone Number [facility] [address] [place] [address] * CREATININE (03/06/2005 6:25 EDT) Creatinine 0.6 0.6 - 1.2 mg/dl [facility] Comment:Performed at [facility] [place], [place] 03/06/2005 6:25 EDT 03/06/2005 6:32 EDT Allison Alarcon MD HISTORICAL LAB FOR SQ LOAD F inal Result Performing Organization Address [facility] de Phone Number [facility] [address] [place] [address] * (ABNORMAL) BUN (03/06/2005 6:25 EDT) BUN 7(L) 8 - 21 mg/dl [facility] Comment:Performed at [place], [place] 03/06/2005 6:25 EDT 03/06/2005 6:32 EDT us Allison Alarcon MD CHEMISTRY & BLOOD GAS ORDERA BLES Final Result Performing Organization Address [facility] de Phone Number [facility] [address] [place] [address] * (ABNORMAL) AST (03/06/2005 6:25 EDT) AST 155(H) 16 - 38 U/L [facility] Comment:Performed at [place], [place] 03/06/2005 6:25 EDT 03/06/2005 6:32 EDT us Allison Alarcon MD CHEMISTRY & BLOOD GAS ORDERA BLES Final Result Performing Organization Address [facility] de Phone Number [facility] [address] [place] [address] * (ABNORMAL) ALT (03/06/2005 6:25 EDT) ALT 397(H) 10 - 45 U/L [facility] Comment:Performed at [place], [place] 03/06/2005 6:25 EDT 03/06/2005 6:32 EDT us Allison Alarcon MD CHEMISTRY & BLOOD GAS ORDERA BLES Final Result Performing Organization Address [facility] de Phone Number [facility] [address] [place] [address] * SODIUM (03/01/2005 6:55 EDT) Sodium 140 136 - 145 mEq/L [facility] Comment:Performed at [place], [place] 03/01/2005 6:55 EDT 03/01/2005 7:29 EDT us Allison Alarcon MD CHEMISTRY & BLOOD GAS ORDERA BLES Final Result Performing Organization Address [facility] de Phone Number [facility] [address] [place] [address] * (ABNORMAL) ELECTROLYTES (02/28/2005 6:30 EDT) Sodium 143 136 - 145 mEq/L [facility] Potassium 4.2 3.6 - 5.2 mEq/L [facility] Chloride 107 96 - 110 mEq/L [facility] CO2 23(L) 24 - 32 mEq/L [facility] Comment:Performed at [place], [place] 02/28/2005 6:30 EDT 02/28/2005 8:22 EDT us Allison Alarcon MD CHEMISTRY & BLOOD GAS ORDERA BLES Final Result Performing Organization Address [facility] de Phone Number [facility] [address] [place] [address] * CREATININE (02/28/2005 6:30 EDT) Creatinine 0.7 0.6 - 1.2 mg/dl [facility] Comment:Performed at [place], [place] 02/28/2005 6:30 EDT 02/28/2005 8:22 EDT Allison Alarcon MD HISTORICAL LAB FOR SQ LOAD F inal Result Performing Organization Address [facility] Co de Phone Number [facility] [address] [place] [address] * BUN (02/28/2005 6:30 EDT) Pathologist [facility] BUN 14 8 - 21 mg/dl [facility] Comment:Performed at [place], [place] 02/28/2005 6:30 EDT 02/28/2005 8:22 EDT Allison Alarcon MD CHEMISTRY & BLOOD GAS ORDERA BLES Final Result [facility] [address] [place] [address] * SODIUM (02/26/2005 8:52 EDT) [facility] Sodium 144 136 - 145 mEq/L [facility] Comment:Performed at [place], [place] 02/26/2005 8:52 EDT 02/26/2005 8:54 EDT us Allison Alarcon MD CHEMISTRY & BLOOD GAS ORDERA BLES Final Result [facility] [address] [place] [address] * HEPATITIS C ANTIBODY (02/26/2005 8:52 EDT) [facility] Hepatitis C Ab Neg [facility] 02/26/2005 8:52 EDT 02/26/2005 8:54 EDT us Allison Alarcon MD CHEMISTRY & BLOOD GAS ORDERA BLES Final Result [facility] [address] [place] [address] * HEPATITIS B SURFACE ANTIBODY (02/26/2005 8:52 EDT) Pathologist [facility] Hepatitis B Surface Ab Indeterminate - consider retesting or reimmunization. [facility] 02/26/2005 8:52 EDT 02/26/2005 8:54 EDT us Allison Alarcon MD CHEMISTRY & BLOOD GAS ORDERA BLES Final Result Performing Organization Address [facility]/ZIP Co de Phone Number [facility] [address] [place] [address] * HEPATITIS A TOTAL ANTIBODY (02/26/2005 8:52 EDT) Hep A Antibody Neg [facility] 02/26/2005 8:52 EDT 02/26/2005 8:54 EDT us Allison Alarcon MD CHEMISTRY & BLOOD GAS ORDERA BLES Final Result Performing Organization Address [facility]/ZIP Co de Phone Number [facility] [address] [place] [address] * BUN (02/26/2005 8:52 EDT) Pathologist [facility] BUN 14 8 - 21 mg/dl [facility] Comment:Performed at [place], [place] 02/26/2005 8:52 EDT 02/26/2005 8:54 EDT us Allison Alarcon MD CHEMISTRY & BLOOD GAS ORDERA BLES Final Result Performing Organization Address [facility] de Phone Number [facility] [address] [place] [address] * (ABNORMAL) AST (02/26/2005 8:52 EDT) Pathologist [facility] AST 88(H) 16 - 38 U/L [facility] Comment:Performed at [facility] [place] [facility] [place], [place] 02/26/2005 8:52 EDT 02/26/2005 8:54 EDT us Allison Alarcon MD CHEMISTRY & BLOOD GAS ORDERA BLES Final Result Performing Organization Address [facility] Co de Phone Number [facility] [address] [place] [address] * (ABNORMAL) ALT (02/26/2005 8:52 EDT) ALT 274(H) 10 - 45 U/L [facility] Comment:Performed at [place], [place] 02/26/2005 8:52 EDT 02/26/2005 8:54 EDT Allison Alarcon MD CHEMISTRY & BLOOD GAS ORDERA BLES Final Result Performing Organization Address [facility] de Phone Number [facility] [address] [place] [address] * ALKALINE PHOSPHATASE (02/26/2005 8:52 EDT) Pathologist [facility] Total Alkaline Phosphatase 227 130 - 525 U/L [facility] Comment:Performed at [place], [place] 02/26/2005 8:52 EDT 02/26/2005 8:54 EDT Allison Alarcon MD CHEMISTRY & BLOOD GAS ORDERA BLES Final Result Performing Organization Address [facility] de Phone Number [facility] [address] [place] [address] * ALBUMIN (02/26/2005 8:52 EDT) Pathologist [facility] Albumin 4.6 3.0 - 5.5 g/dl [facility] Comment:Performed at [place], [place] 02/26/2005 8:52 EDT 02/26/2005 8:54 EDT Allison Alarcon MD CHEMISTRY & BLOOD GAS ORDERA BLES Final Result Performing Organization Address [facility] de Phone Number [facility] [address] [place] [address] * (ABNORMAL) SODIUM (02/24/2005 10:40 EDT) Pathologist [facility] Sodium 135(L) 136 - 145 mEq/L [facility] Comment:Performed at [place], [place] 02/24/2005 10:4 0 EDT 02/24/2005 10:58 EDT Allison Alarcon MD CHEMISTRY & BLOOD GAS ORDERA BLES Final Result Performing Organization Address [facility] de Phone Number [facility] [address] [place] [address] * SODIUM (02/22/2005 6:00 EDT) Sodium 144 136 - 145 mEq/L [facility] Comment:Performed at [facility] [place], [place] 02/22/2005 6:00 EDT 02/22/2005 6:53 EDT Allison Alarcon MD CHEMISTRY & BLOOD GAS ORDERA BLES Final Result Performing Organization Address [facility] de Phone Number [facility] [address] [place] [address] * (ABNORMAL) SODIUM (02/21/2005 10:22 EDT) Sodium 154(H) 136 - 145 mEq/L [facility] Comment: BY F.STrena Performed at [place], [place] 02/21/2005 10:2 2 EDT 02/21/2005 10:24 EDT us Allison Alarcon MD CHEMISTRY & BLOOD GAS ORDERA BLES Final Result Performing Organization Address [facility] de Phone Number [facility] [address] [place] [address] * (ABNORMAL) SODIUM (02/20/2005 6:00 EDT) Sodium 153(H) 136 - 145 mEq/L [facility] Comment: Sample retested, result confirmed Performed at [place], [place] 02/20/2005 6:00 EDT 02/20/2005 6:37 EDT Allison Alarcon MD CHEMISTRY & BLOOD GAS ORDERA BLES Final Result Performing Organization Address [facility] Co de Phone Number [facility] [address] [place] [address] * SODIUM (02/18/2005 8:06 EDT) Sodium 139 136 - 145 mEq/L [facility] Comment:Performed at [facility], [place], [place] 02/18/2005 8:06 EDT 02/18/2005 8:08 EDT Allison Alarcon MD CHEMISTRY & BLOOD GAS ORDERA BLES Final Result Performing Organization Address [facility]/ZIP Co de Phone Number [facility] [address] [place] [address] * (ABNORMAL) SODIUM (02/17/2005 6:20 EDT) Sodium 149(H) 136 - 145 mEq/L [facility] 02/17/2005 6:20 EDT 02/17/2005 6:45 EDT us Allison Alarcon MD CHEMISTRY & BLOOD GAS ORDERA BLES Final Result Performing Organization Address [facility] Co de Phone Number [facility] [address] [place] [address] * (ABNORMAL) AST (02/17/2005 6:20 EDT) AST 176(H) 16 - 38 U/L [facility] 02/17/2005 6:20 EDT 02/17/2005 6:45 EDT us Allison Alarcon MD CHEMISTRY & BLOOD GAS ORDERA BLES Final Result Performing Organization Address City/[facility]/ZIP Co de Phone Number [facility] [address] [place] [address] * (ABNORMAL) ALT (02/17/2005 6:20 EDT) ALT 338(H) 10 - 45 U/L [facility] 02/17/2005 6:20 EDT 02/17/2005 6:45 EDT us Allison Alarcon MD CHEMISTRY & BLOOD GAS ORDERA BLES Final Result Performing Organization Address [facility] Co de Phone Number [facility] [address] [place] [address] * (ABNORMAL) SODIUM (02/16/2005 6:00 EDT) Sodium 154(H) 136 - 145 mEq/L [facility] Comment:Performed at [place], [place] 02/16/2005 6:00 EDT 02/16/2005 7:48 EDT us Allison Alarcon MD CHEMISTRY & BLOOD GAS ORDERA BLES Final Result Performing Organization Address [facility] de Phone Number [facility] [address] [place] [address] * (ABNORMAL) SODIUM (02/15/2005 12:52 EDT) Sodium 155(H) 136 - 145 mEq/L [facility] Comment:Performed at [place], [place] 02/15/2005 12:5 2 EDT 02/15/2005 12:54 EDT us Allison Alarcon MD CHEMISTRY & BLOOD GAS ORDERA BLES Final Result Performing Organization Address [facility] de Phone Number [facility] [address] [place] [address] * UA REFLEX (02/15/2005 10:17 EDT) UA Billing Microscopic not indicated. [facility] 02/15/2005 10:1 7 EDT 02/15/2005 10:31 EDT us Allison Alarcon MD URINALYSIS ORDERABLES Final Result Performing Organization Address [facility] Co de Phone Number [facility] [address] [place] [address] * URINALYSIS (02/15/2005 10:17 EDT) Color, UA [facility] Clarity, UA [facility] Glucose, UA NORM [facility] Bilirubin, UA NEG [facility] Ketones, UA NEG [facility] Specific [place], Urine 1.005 - 1.02 [facility] [...] Final Result Performing Organization Address [facility] de Phone Number [facility] [address] [place] [address] * URINALYSIS (02/15/2005 10:17 EDT) Color, UA Yellow [facility] Clarity, UA Clear [facility] Glucose, UA Norm NORM [facility] Bilirubin, UA Neg [facility]G [facility] Ketones, UA Neg NEG [facility] Specific [place], Urine 1.010 1.005 - 1.02 [facility] [...] Final Result Performing Organization Address [facility] de Phone Number [facility] [address] [place] [address] * (ABNORMAL) PHOSPHORUS (02/15/2005 6:20 EDT) Phosphorus 6.2(H) 2.9 - 5.4 mg/dl [facility] Comment:Performed at [place], [place] 02/15/2005 6:20 EDT 02/15/2005 6:34 EDT Allison Alarcon MD CHEMISTRY & BLOOD GAS ORDERA BLES Final Result Performing Organization Address [facility] de Phone Number [facility] [address] [place] [address] * PREALBUMIN (02/15/2005 6:20 EDT) Prealbumin 34 mg/dl [facility] Comment:Slightly lipemic 02/15/2005 6:20 EDT 02/15/2005 6:34 EDT Allison Alarcon MD CHEMISTRY & BLOOD GAS ORDERA BLES Final Result Performing Organization Address [facility] Phone Number [facility] [address] [place] [address] * (ABNORMAL) SODIUM (02/15/2005 6:20 EDT) Sodium 158(HH) 136 - 145 mEq/L [facility] Comment: Sample retested, result confirmed Performed at [place], [place] 02/15/2005 6:20 EDT 02/15/2005 6:34 EDT Allison Alarcon MD CHEMISTRY & BLOOD GAS ORDERA BLES Final Result Performing Organization Address [facility] de Phone Number [facility] [address] [place] [address] * MAGNESIUM (02/15/2005 6:20 EDT) Magnesium 2.2 1.7 - 2.8 mg/dl [facility] Comment:Performed at [place], [place] 02/15/2005 6:20 EDT 02/15/2005 6:34 EDT Allison Alarcon MD CHEMISTRY & BLOOD GAS ORDERA BLES Final Result Performing Organization Address [facility] Co de Phone Number [facility] [address] [place] [address] * (ABNORMAL) LIPID PROFILE (INCLUDES CHOLESTEROL, TRIGLYCERIDES, HDL, LDL) (02/15/2005 6:20 EDT) Cholesterol 283 mg/dl [facility] Comment: Desirable:<200 Borderline:200-239 High Risk:>yd=625 Sample retested, result confirmed Triglycerides 958(H) 34 - 165 mg/dl [facility] HDL 39 mg/dl [facility] Comment: Highly Desirable:>60 Desirable:35-60 High Risk:<35 LDL, Calculated Triglyceride greater than 400 mg/dl, LDL calculation invalid. Desirable:<130 Borderline:130- 159 High Risk:>oh=017 mg/dl [facility] Chol/HDL Ratio 7.3 [facility] Fasting? Unknown [facility] [place] [place] [facility] 02/15/2005 6:20 EDT 02/15/2005 6:34 EDT us Allison Alarcon MD CHEMISTRY & BLOOD GAS ORDERA BLES Final Result Performing Organization Address [facility] de Phone Number [facility] [address] [place] [address] * CREATININE (02/15/2005 6:20 EDT) Creatinine 0.8 0.6 - 1.2 mg/dl [facility] Comment:Performed at [facility] [place] 02/15/2005 6:20 EDT 02/15/2005 6:34 EDT Allison Alarcon MD HISTORICAL LAB FOR SQ LOAD F inal Result Performing Organization Address [facility] Co de Phone Number [facility] [address] [place] [address] * BUN (02/15/2005 6:20 EDT) BUN 17 8 - 21 mg/dl [facility] Comment:Performed at [place], [place] 02/15/2005 6:20 EDT 02/15/2005 6:34 EDT us Allison Alarcon MD CHEMISTRY & BLOOD GAS ORDERA BLES Final Result Performing Organization Address [facility] Co de Phone Number [facility] [address] [place] [address] * (ABNORMAL) AST (02/15/2005 6:20 EDT) Pathologist [facility] AST 134(H) 16 - 38 U/L [facility] Comment:Performed at [place], [place] 02/15/2005 6:20 EDT 02/15/2005 6:34 EDT us Allison Alarcon MD CHEMISTRY & BLOOD GAS ORDERA BLES Final Result Performing Organization Address [facility] de Phone Number [facility] [address] [place] [address] * (ABNORMAL) ALT (02/15/2005 6:20 EDT) Pathologist [facility] ALT 391(H) 10 - 45 U/L [facility] Comment:Performed at [place], [place] 02/15/2005 6:20 EDT 02/15/2005 6:34 EDT us Allison Alarcon MD CHEMISTRY & BLOOD GAS ORDERA BLES Final Result Performing Organization Address [facility] de Phone Number [facility] [address] [place] [address] * ALKALINE PHOSPHATASE (02/15/2005 6:20 EDT) Total Alkaline Phosphatase 223 130 - 525 U/L [facility] Comment:Performed at [place], [place] 02/15/2005 6:20 EDT 02/15/2005 6:34 EDT us Allison Alarcon MD CHEMISTRY & BLOOD GAS ORDERA BLES Final Result Performing Organization Address [facility] de Phone Number [facility] [address] [place] [address] * SODIUM (02/13/2005 6:25 EDT) Sodium 140 136 - 145 mEq/L [facility] Comment:Performed at [place], [place] 02/13/2005 6:25 EDT 02/13/2005 6:38 EDT us Allison Alarcon MD CHEMISTRY & BLOOD GAS ORDERA BLES Final Result Performing Organization Address [facility] de Phone Number [facility] [address] [place] [address] * (ABNORMAL) SODIUM (02/11/2005 6:50 EDT) Sodium 135(L) 136 - 145 mEq/L [facility] Comment:Performed at [place], [place] 02/11/2005 6:50 EDT 02/11/2005 7:07 EDT us Allison Alarcon MD CHEMISTRY & BLOOD GAS ORDERA BLES Final Result Performing Organization Address [facility] de Phone Number [facility] [address] [place] [address] * (ABNORMAL) SODIUM (02/08/2005 6:40 EDT) Sodium 147(H) 136 - 145 mEq/L [facility] Comment:Performed at [place], [place] 02/08/2005 6:40 EDT 02/08/2005 6:43 EDT Allison Alarcon MD CHEMISTRY & BLOOD GAS ORDERA BLES Final Result Performing Organization Address [facility] Co de Phone Number [facility] [address] [place] [address] * SODIUM (02/07/2005 6:00 EDT) Sodium 145 136 - 145 mEq/L [facility] Comment:Performed at [place], [place] 02/07/2005 6:00 EDT 02/07/2005 6:33 EDT Allison Alarcon MD CHEMISTRY & BLOOD GAS ORDERA BLES Final Result Performing Organization Address [facility] Co de Phone Number [facility] [address] [place] [address] * (ABNORMAL) SODIUM (02/06/2005 7:00 EDT) Sodium 146(H) 136 - 145 mEq/L [facility] Comment: Sample retested, result confirmed Performed at [facility], [place], [place] 02/06/2005 7:00 EDT 02/06/2005 7:03 EDT Allison Alarcon MD CHEMISTRY & BLOOD GAS ORDERA BLES Final Result Performing Organization Address [facility] de Phone Number [facility] [address] [place] [address] * (ABNORMAL) ELECTROLYTES (02/03/2005 10:00 EDT) Sodium 135(L) 136 - 145 mEq/L [facility] Potassium 5.2 3.6 - 5.2 mEq/L [facility] Chloride 96 96 - 110 mEq/L [facility] CO2 27 24 - 32 mEq/L [facility] Comment:Performed at [facility], [place], [place] 02/03/2005 10:0 0 EDT 02/03/2005 10:19 EDT us Allison Alarcon MD CHEMISTRY & BLOOD GAS ORDERA BLES Final Result Performing Organization Address [facility] Co de Phone Number [facility] [address] [place] [address] * (ABNORMAL) SODIUM (02/01/2005 11:47 EDT) Sodium 134(L) 136 - 145 mEq/L [facility] Comment:Performed at [place], [place] 02/01/2005 11:4 7 EDT 02/01/2005 11:49 EDT Allison Alarcon MD CHEMISTRY & BLOOD GAS ORDERA BLES Final Result Performing Organization Address [facility] Co de Phone Number [facility] [address] [place] [address] * PREALBUMIN (01/30/2005 6:45 EDT) Pathologist [facility] Prealbumin 25 mg/dl [facility] 01/30/2005 6:45 EDT 01/30/2005 7:18 EDT Allison Alarcon MD CHEMISTRY & BLOOD GAS ORDERA BLES Final Result Performing Organization Address [facility] de Phone Number [facility] [address] [place] [address] * ELECTROLYTES (01/30/2005 6:45 EDT) Sodium 144 136 - 145 mEq/L [facility] Potassium 4.4 3.6 - 5.2 mEq/L [facility] Chloride 105 96 - 110 mEq/L [facility] CO2 27 24 - 32 mEq/L [facility] Comment:Performed at [place], [place] 01/30/2005 6:45 EDT 01/30/2005 7:18 EDT Allison Alarcon MD CHEMISTRY & BLOOD GAS ORDERA BLES Final Result Performing Organization Address [facility] de Phone Number [facility] [address] [place] [address] * CREATININE (01/30/2005 6:45 EDT) Creatinine 0.7 0.6 - 1.2 mg/dl [facility] Comment:Performed at [facility], [place], [place] 01/30/2005 6:45 EDT 01/30/2005 7:18 EDT Allison Alarcon MD HISTORICAL LAB FOR SQ LOAD F inal Result Performing Organization Address [facility] Co de Phone Number [facility] [address] [place] [address] * BUN (01/30/2005 6:45 EDT) BUN 12 8 - 21 mg/dl [facility] Comment:Performed at [facility], [place], [place] 01/30/2005 6:45 EDT 01/30/2005 7:18 EDT Allison Alarcon MD CHEMISTRY & BLOOD GAS ORDERA BLES Final Result Performing Organization Address [facility] de Phone Number [facility] [address] [place] [address] * (ABNORMAL) SODIUM (01/28/2005 6:40 EDT) Sodium 151(H) 136 - 145 mEq/L [facility] Comment:Performed at [place], [place] 01/28/2005 6:40 EDT 01/28/2005 6:41 EDT us Allison Alarcon MD CHEMISTRY & BLOOD GAS ORDERA BLES Final Result Performing Organization Address [facility] Co de Phone Number [facility] [address] [place] [address] * (ABNORMAL) SODIUM (01/27/2005 7:10 EDT) Sodium 155(H) 136 - 145 mEq/L [facility] 01/27/2005 7:10 EDT 01/27/2005 7:40 EDT us Allison Alarcon MD CHEMISTRY & BLOOD GAS ORDERA BLES Final Result Performing Organization Address [facility] Co de Phone Number [facility] [address] [place] [address] * (ABNORMAL) SODIUM (01/26/2005 7:45 EDT) Sodium 148(H) 136 - 145 mEq/L [facility] Comment:Heparinized plasma. 01/26/2005 7:45 EDT 01/26/2005 8:47 EDT us Allison Alarcon MD CHEMISTRY & BLOOD GAS ORDERA BLES Final Result Performing Organization Address [facility] de Phone Number [facility] [address] [place] [address] * (ABNORMAL) SODIUM (01/25/2005 11:15 EDT) Sodium 152(H) 136 - 145 mEq/L [facility] Comment:[place]formed [place] 01/25/2005 11:1 5 EDT 01/25/2005 11:17 EDT us Allison Alarcon MD CHEMISTRY & BLOOD GAS ORDERA BLES Final Result Performing Organization Address [facility] de Phone Number [facility] [address] [place] [address] * (ABNORMAL) SODIUM (01/25/2005 6:45 EDT) Sodium 153(H) 136 - 145 mEq/L [facility] Comment: Sample retested, result confirmed Performed at [place], [place] 01/25/2005 6:45 EDT 01/25/2005 7:13 EDT us Allison Alarcon MD CHEMISTRY & BLOOD GAS ORDERA BLES Final Result Performing Organization Address [facility] Co de Phone Number [facility] [address] [place] [address] * SODIUM (01/24/2005 6:45 EDT) Sodium 140 136 - 145 mEq/L [facility] Comment:Performed at [place], [place] 01/24/2005 6:45 EDT 01/24/2005 6:53 EDT Allison Alarcon MD CHEMISTRY & BLOOD GAS ORDERA BLES Final Result Performing Organization Address [facility]/ZIP Co de Phone Number [facility] [address] [place] [address] * SODIUM (01/23/2005 6:50 EDT) Sodium 136 136 - 145 mEq/L [facility] Comment:Performed at [place], [place] 01/23/2005 6:50 EDT 01/23/2005 7:20 EDT us Allison Alarcon MD CHEMISTRY & BLOOD GAS ORDERA BLES Final Result Performing Organization Address [facility] de Phone Number [facility] [address] [place] [address] * (ABNORMAL) LIPID PROFILE (INCLUDES CHOLESTEROL, TRIGLYCERIDES, HDL, LDL) (01/23/2005 6:50 EDT) Cholesterol 154 mg/dl [facility] Comment: Desirable:<200 Borderline:200-239 High Risk:>bg=606 Triglycerides 426(H) 34 - 165 mg/dl [facility] HDL 32 mg/dl [facility] Comment: Highly Desirable:>60 Desirable:35-60 High Risk:<35 Slightly lipemic LDL, Calculated Triglyceride greater than 400 mg/dl, LDL calculation invalid. Desirable:<130 Borderline:130- 159 High Risk:>vy=603 Slightly lipemic mg/dl [facility] Chol/HDL Ratio 4.8 Slightly lipemic [facility] Fasting? Unknown Performed at [place], [place] [facility] 01/23/2005 6:50 EDT 01/23/2005 7:20 EDT Allison Alarcon MD CHEMISTRY & BLOOD GAS ORDERA BLES Final Result Performing Organization Address [facility]/ZIP Co de Phone Number [facility] [address] [place] [address] * (ABNORMAL) AST (01/23/2005 6:50 EDT) AST 44(H) 16 - 38 U/L [facility] Comment:Performed at [place], [place] 01/23/2005 6:50 EDT 01/23/2005 7:20 EDT us Allison Alarcon MD CHEMISTRY & BLOOD GAS ORDERA BLES Final Result Performing Organization Address [facility] de Phone Number [facility] [address] [place] [address] * (ABNORMAL) ALT (01/23/2005 6:50 EDT) Pathologist [facility] ALT 105(H) 10 - 45 U/L [facility] Comment:Performed at [place], [place] 01/23/2005 6:50 EDT 01/23/2005 7:20 EDT us Allison Alarcon MD CHEMISTRY & BLOOD GAS ORDERA BLES Final Result Performing Organization Address [facility] de Phone Number [facility] [address] [place] [address] * ALKALINE PHOSPHATASE (01/23/2005 6:50 EDT) Pathologist [facility] Total Alkaline Phosphatase 192 130 - 525 U/L [facility] Comment:Performed at [place], [place] 01/23/2005 6:50 EDT 01/23/2005 7:20 EDT us Allison Alarcon MD CHEMISTRY & BLOOD GAS ORDERA BLES Final Result Performing Organization Address [facility] Co de Phone Number [facility] [address] [place] [address] * (ABNORMAL) SODIUM (01/22/2005 6:25 EDT) Sodium 135(L) 136 - 145 mEq/L [facility] Comment:Performed at [place], [place] 01/22/2005 6:25 EDT 01/22/2005 6:34 EDT Allison Alarcon MD CHEMISTRY & BLOOD GAS ORDERA BLES Final Result Performing Organization Address [facility] Co de Phone Number [facility] [address] [place] [address] * (ABNORMAL) SODIUM (01/21/2005 16:10 EDT) Sodium 130(L) 136 - 145 mEq/L [facility] Comment:Performed at [place], [place] 01/21/2005 16:1 0 EDT 01/21/2005 16:12 EDT Allison Alarcon MD CHEMISTRY & BLOOD GAS ORDERA BLES Final Result Performing Organization Address [facility] Co de Phone Number [facility] [address] [place] [address] * (ABNORMAL) SODIUM (01/21/2005 6:50 EDT) Sodium 129(L) 136 - 145 mEq/L [facility] Comment:Performed at [place], [place] 01/21/2005 6:50 EDT 01/21/2005 6:59 EDT Allison Alarcon MD CHEMISTRY & BLOOD GAS ORDERA BLES Final Result Performing Organization Address [facility] Co de Phone Number [facility] [address] [place] [address] * BACTERIAL CULTURE, URINE (01/20/2005 13:30 EDT) Specimen Description Urine [facility] Result No growth [facility] Report Status Final [id number] [facility] 01/20/2005 13:3 0 EDT 01/20/2005 16:43 EDT Allison Alarcon MD MICROBIOLOGY - GENERAL ORDER LYNDSEY Final Result Performing Organization Address City/[facility]/ZIP Co de Phone Number [facility] [address] [place] [address] * (ABNORMAL) UA WITH MICROSCOPIC (01/20/2005 13:30 EDT) Color, UA Yellow [facility] Clarity, UA Clear [facility] Glucose, UA Norm NORM [facility] Bilirubin, UA Neg [facility]G [facility] Ketones, UA Neg NEG [facility] Specific [place], Urine >1.030(H) 1.005 - 1.02 [facility] Blood, UA Neg NEG [facility] pH, UA 5.5 5.0 - 9.0 [facility] Protein, UA Trace(A) NEG [facility] Urobilinogen, UA Norm NORM mg/dL [facility] Nitrite, UA Neg NEG [facility] Leuk Esterase Neg NEG [facility] WBC, UA less than 1 0 - 5 /HPF [facility] RBC, UA less than 1 0 - 5 /HPF [facility] Squam Epithel, UA Few(A) NS /HPF [facility] Renal Epithel, UA None seen NS /HPF [facility] Bacteria, UA None seen NS /HPF [facility] Crystals, UA None seen /HPF [facility] Hyaline Casts, UA None seen /LPF [facility] UA Comment Microscopic results are unreliable on urines unrefrig >2hrs or refrig >8hrs. [facility] Mucus, UA Present [facility] Refractometer SG,Urine 1.044(H) 1.005 - 1.02 [facility] Comment:Refractometer specif ic gravity 01/20/2005 13:3 0 EDT 01/20/2005 13:47 EDT us Allison Alarcon MD URINALYSIS ORDERABLES Final Result Performing Organization Address City/[facility]/ZIP Co de Phone Number [facility] [address] [place] [address] * UA WITH MICROSCOPIC (01/20/2005 13:30 EDT) Color, UA [facility] Clarity, UA [facility] Glucose, UA NORM [facility] Bilirubin, UA NEG [facility] Ketones, UA NEG [facility] Specific [place], Urine 1.005 - 1.02 [facility] Blood, UA NEG [facility] pH, UA 5.0 - 9.0 [facility] Protein, UA NEG [facility] Urobilinogen, UA NORM mg/dL [facility] Nitrite, UA NEG [facility] Leuk Esterase NEG [facility] WBC, UA 0 - 5 /HPF [facility] RBC, UA 0 - 5 [...] Final Result Performing Organization Address [facility] Co de Phone Number [facility] [address] [place] [address] * CULTURE IF UA POSITIVE (01/20/2005 13:30 EDT) Pathologist [facility] Culture if Indicated Culture indicated by urinalysis results. [facility] 01/20/2005 13:3 0 EDT 01/20/2005 13:47 EDT Allison Alarcon MD MICROBIOLOGY - GENERAL ORDER LYNDSEY Final Result Performing Organization Address [facility] Co de Phone Number [facility] [address] [place] [address] * SODIUM (01/20/2005 6:30 EDT) Sodium 136 136 - 145 mEq/L [facility] 01/20/2005 6:30 EDT 01/20/2005 7:06 EDT us Allison Alarcon MD CHEMISTRY & BLOOD GAS ORDERA BLES Final Result Performing Organization Address [facility] Co de Phone Number [facility] [address] [place] [address] * SODIUM (01/19/2005 7:45 EDT) Sodium 143 136 - 145 mEq/L [facility] Comment: SHORT SAMPLED Performed at [place], [place] 01/19/2005 7:45 EDT 01/19/2005 7:53 EDT us Allison Alarcon MD CHEMISTRY & BLOOD GAS ORDERA BLES Final Result Performing Organization Address [facility] de Phone Number [facility] [address] [place] [address] * (ABNORMAL) SODIUM (01/18/2005 6:15 EDT) Sodium 135(L) 136 - 145 mEq/L [facility] Comment:Performed at [place], [place] 01/18/2005 6:15 EDT 01/18/2005 6:31 EDT us Allison Alarcon MD CHEMISTRY & BLOOD GAS ORDERA BLES Final Result Performing Organization Address [facility] de Phone Number [facility] [address] [place] [address] * SODIUM (01/17/2005 6:45 EDT) Sodium 141 136 - 145 mEq/L [facility] Comment:Performed at [place], [place] 01/17/2005 6:45 EDT 01/17/2005 6:48 EDT us Allison Alarcon MD CHEMISTRY & BLOOD GAS ORDERA BLES Final Result Performing Organization Address [facility] Co de Phone Number [facility] [address] [place] [address] * (ABNORMAL) LIPID PROFILE (INCLUDES CHOLESTEROL, TRIGLYCERIDES, HDL, LDL) (01/17/2005 6:45 EDT) Cholesterol 151 mg/dl [facility] Comment: Desirable:<200 Borderline:200-239 High Risk:>qi=780 Triglycerides 425(H) 34 - 165 mg/dl [facility] Comment:Performed at [facility] [address] [place], [place] HDL 26 mg/dl [facility] Comment: Highly Desirable:>60 Desirable:35-60 High Risk:<35 LDL, Calculated Triglyceride greater than 400 mg/dl, LDL calculation invalid. Desirable:<130 Borderline:130- 159 High Risk:>ca=250 mg/dl [facility] Chol/HDL Ratio 5.8 [facility] Fasting? Unknown [facility] 01/17/2005 6:45 EDT 01/17/2005 6:48 EDT us Allison Alarcon MD CHEMISTRY & BLOOD GAS ORDERA BLES Final Result Performing Organization Address [facility] Co de Phone Number [facility] [address] [place] [address] * T4 FREE (01/17/2005 6:45 EDT) Free T4 1.3 0.8 - 1.8 ng/dl [facility] 01/17/2005 6:45 EDT 01/17/2005 6:48 EDT Allison Alarcon MD CHEMISTRY & BLOOD GAS ORDERA BLES Final Result Performing Organization Address [facility] Co de Phone Number [facility] [address] [place] [address] * (ABNORMAL) AST (01/17/2005 6:45 EDT) AST 49(H) 16 - 38 U/L [facility] Comment:Performed at [place] [place], [place] 01/17/2005 6:45 EDT 01/17/2005 6:48 EDT us Allison Alarcon MD CHEMISTRY & BLOOD GAS ORDERA BLES Final Result Performing Organization Address [facility] de Phone Number [facility] [address] [place] [address] * (ABNORMAL) ALT (01/17/2005 6:45 EDT) ALT 170(H) 10 - 45 U/L [facility] Comment:Performed at [place], [place] 01/17/2005 6:45 EDT 01/17/2005 6:48 EDT us Allison Alarcon MD CHEMISTRY & BLOOD GAS ORDERA BLES Final Result Performing Organization Address [facility] Phone Number [facility] [address] [place] [address] * ALKALINE PHOSPHATASE (01/17/2005 6:45 EDT) Total Alkaline Phosphatase 149 130 - 525 U/L [facility] Comment:Performed at [place], [place] 01/17/2005 6:45 EDT 01/17/2005 6:48 EDT us Allison Alarcon MD CHEMISTRY & BLOOD GAS ORDERA BLES Final Result Performing Organization Address [facility] de Phone Number [facility] [address] [place] [address] * SODIUM (01/16/2005 6:45 EDT) Sodium 137 136 - 145 mEq/L [facility] Comment:Performed at [place], [place] 01/16/2005 6:45 EDT 01/16/2005 7:16 EDT us Allison Alarcon MD CHEMISTRY & BLOOD GAS ORDERA BLES Final Result Performing Organization Address [facility] Co de Phone Number [facility] [address] [place] [address] documented in this encounter Visit Diagnoses Not on filedocumented in this encounter
--- OUTSIDE RECORDS SUMMARY | 2024-07-22 13:47 | XMS_ITS | Encounter Summary ---
Author Organization [facility] Address [address] [place] [address] Care Team Providers Care Stem Roller Or Crusher Operator Name Role Phone Yan Demarco MD Primary Care Provider [phone] Corin Skinner MD Primary Care Provider [phone] Encounter Details Date Type Department Care Team (Late st Contact Info) Description 01/31/2005 Before PRISM Converted Visit (Maple) [facility] - Maple conversion [address] [place] [address] Wicho Carlton MD [address] [place] [address] Social History Tobacco Use Types [...] Carlton MD P - ss Job ID: [id number] Document ID: [id number] cc: documented in this encounter Plan of Treatment Upcoming Encounters Date Type Department Care Team (Late st Contact Info) Description 10/01/2024 13:40 EDT Office Visit [facility] Endocrinology - [facility] [address] [place] [address] Wilder Zaidi, [address] [facility] [address] [place] [phone] documented as of this encounter Visit Diagnoses Not on filedocumented in this encounter Care Teams Stem Roller Or Crusher Operator Relationship Specialty Start Date End Date Yan Demarco MD [address] [place] [address] PCP - General 08/22/09 02/20/10 Corin Skinner MD [address] [place] [phone] PCP - General 10/24/08 08/21/09 documented as of this encounter
--- OUTSIDE RECORDS SUMMARY | 2024-07-22 13:47 | XMS_ITS | Encounter Summary ---
Author Organization [facility] Address [address] [place] [address] Care Team Providers Care Performing Artist Name Role Phone Yan Demarco MD Primary Care Provider Corin Skinner MD Primary Care Provider Akil Serrano MD Primary Care Provider [phone] Encounter Details Date Type Department Care Team (Late st Contact Info) Description 12/03/2004 Before PRISM Converted Visit (Maple) [facility] - Maple conversion [address] [place] [address] Allison Alarcon MD [address] [place] [phone] Social History Tobacco Use Types Packs/Day Years [...] - ALLISON ALARCON MD /mt Voice ID: [id number] Doc ID: [id number] patient's care and care coordination with team and outside providers.) - ALLISON ALARCON MD /mt Voice ID: [id number] Doc ID: [id number] documented in this encounter Plan of Treatment Upcoming Encounters Date Type Department Care Team (Late st Contact Info) Description 10/01/2024 13:40 EDT Office Visit [facility] Endocrinology - [place] [address] [place], [place] [id number] Wilder Zaidi, DO [address] [place] [address] documented as of this encounter Visit Diagnoses Not on filedocumented in this encounter Care Teams Performing Artist Relationship Specialty Start Date End Date Yan Demarco MD [address] [place] [address] PCP - General 08/22/09 02/20/10 Corin Skinner MD [address] [place] [phone] PCP - General 10/24/08 08/21/09 Akil Serrano MD [address] [facility] [address] [place] [address] PCP - General 02/21/10 04/16/11 documented as of this encounter
--- OUTSIDE RECORDS SUMMARY | 2024-07-22 13:47 | XMS_ITS | Encounter Summary ---
Author Organization [facility] Address [address] [place] [address] Care Team Providers Care Film Splicer Name Role Phone Yan Demarco MD Primary Care Provider Corin Skinner MD Primary Care Provider Akil Serrano MD Primary Care Provider [phone] Encounter Details Date Type Department Care Team (Late st Contact Info) Description 11/27/2004 Before PRISM Converted Visit (Maple) [facility] - Maple conversion [address] [place], [place] [id number] Raleigh Angelo MD [address] [phone] Social History Tobacco Use Types Packs/Day Years [...] - RALEIGH ANGELO MD / Voice ID: [id number] Doc ID: [id number] trolytes, and renal function. - ROCKY ANGELO MD / Voice ID: [id number] Doc ID: [id number] documented in this encounter Plan of Treatment Upcoming Encounters Date Type Department Care Team (Late st Contact Info) Description 10/01/2024 13:40 EDT Office Visit [facility] Endocrinology - [facility] [address] [place] [address] Wilder Zaidi, [address] [facility] [address] [place] [address] documented as of this encounter Visit Diagnoses Not on filedocumented in this encounter Care Teams Film Splicer Relationship Specialty Start Date End Date Yan Demarco MD [address] [place] [address] PCP - General 08/22/09 02/20/10 Corin Skinner MD [address] [place] [phone] PCP - General 10/24/08 08/21/09 Akil Serrano MD [address] [place] [address],[address] [address] PCP - General 02/21/10 04/16/11 documented as of this encounter
--- OUTSIDE RECORDS SUMMARY | 2024-07-22 13:47 | XMS_ITS | Encounter Summary ---
Author Organization [facility] Address [address] [place] [address] Care Team Providers Care Roll Shop Supervisor Name Role Phone Yan Demarco MD Primary Care Provider Corin Skinner MD Primary Care Provider Akil Serrano MD Primary Care Provider [phone] Encounter Details Date Type Department Care Team (Late st Contact Info) Description 11/30/2004 Before PRISM Converted Visit (Maple) [facility] - Maple conversion [address], [place] [address] Raleigh Angelo MD [address] [phone] Social History Tobacco Use Types Packs/Day Years [...] - RALEIGH ANGELO MD /ss Voice ID: [id number] Doc ID: [id number] phaD: 11/30/2004 - RALEIGH ANGELO MD /ss Voice ID: [id number] Doc ID: [id number] documented in this encounter Plan of Treatment Upcoming Encounters Date Type Department Care Team (Late st Contact Info) Description 10/01/2024 13:40 EDT Office Visit [facility] Endocrinology - [facility] [address] [place], [place] [phone] Wilder Zaidi, [address] [facility] [address] [place] [address] documented as of this encounter Visit Diagnoses Not on filedocumented in this encounter Care Teams Roll Shop Supervisor Relationship Specialty Start Date End Date Yan Demarco MD [address] [place] [phone] PCP - General 08/22/09 02/20/10 Corin Skinner MD [address] [place] [phone] PCP - General 10/24/08 08/21/09 Akil Serrano MD [address] [facility] [place] [address] PCP - General 02/21/10 04/16/11 documented as of this encounter
--- OUTSIDE RECORDS SUMMARY | 2024-07-22 13:47 | XMS_ITS | Encounter Summary ---
Author Organization [facility] Address [address] [place] [address] Care Team Providers Care Draftsperson Name Role Phone Yan Demarco MD Primary Care Provider Corin Skinner MD Primary Care Provider [phone] Akil Serrano MD Primary Care Provider [phone] Encounter Details Date Type Department Care Team (Late st Contact Info) Description 11/26/2004 Before PRISM Converted Visit (Maple) [facility] - Maple conversion [address] [place], [place] [address] Raleigh Angelo MD [address] [phone] Social History Tobacco Use Types Packs/Day Years [...] - RALEIGH ANGELO MD /mt Voice ID: [id number] Doc ID: [id number] spalpha - RALEIGH ANGELO MD /mt Voice ID: [id number] Doc ID: [id number] documented in this encounter Plan of Treatment Upcoming Encounters Date Type Department Care Team (Late st Contact Info) Description 10/01/2024 13:40 EDT Office Visit [facility] Endocrinology - [address] [phone] Wilder Zaidi, [address] [place] [address] documented as of this encounter Visit Diagnoses Not on filedocumented in this encounter Care Teams Draftsperson Relationship Specialty Start Date End Date Yan Demarco MD [address] [place] [phone] PCP - General 08/22/09 02/20/10 Corin Skinner MD [address] [place] [phone] PCP - General 10/24/08 08/21/09 Akil Serrano MD [address] [place] [address],[address] [place] [address] PCP - General 02/21/10 04/16/11 documented as of this encounter
--- OUTSIDE RECORDS SUMMARY | 2024-07-22 13:47 | XMS_ITS | Encounter Summary ---
Author Organization [facility] Address [address] [place] [address] Care Team Providers Care Nurse First Assist Name Role Phone Yan Demarco MD Primary Care Provider [phone] Corin Skinner MD Primary Care Provider [phone] Akil Serrano MD Primary Care Provider [phone] Yossi Torres MD Primary Care Provider [phone] Emilee Cody MD Primary Care Provider + Ren Vaz MD Primary Care Provider [phone] Encounter Details Date Type Department Care Team (Late st Contact Info) Description 01/01/2005 Before PRISM Converted Visit (Maple) [facility] Rehabilitation Therapy - [address] [address] Allison Alarcon MD [address] [place] [phone] Social History Tobacco Use Types Packs/Day Years [...] [facility] Endocrinology - [place] [address] Dejuan Wilder Valencia, DO [address] [place] [address] documented as of this encounter [...] filedocumented in this encounter Care Teams Nurse First Assist Relationship Specialty Start Date End Date Yan Demarco MD [address] [place] [phone] PCP - General 08/22/09 02/20/10 Corin Skinner MD [address] [place] [phone] PCP - General 10/24/08 08/21/09 Akil Serrano MD [address] [facility] [facility] [address] [place] [address] PCP - General 02/21/10 04/16/11 Yossi Torres MD [address] [place] [phone] PCP - General 04/17/11 03/14/16 Emilee Cody MD [address] [place] [address] PCP - General 03/15/16 09/29/18 Ren Vaz MD [address] [place] [address] [place] [address] PCP - General 09/30/18 documented as of this encounter
--- OUTSIDE RECORDS SUMMARY | 2024-07-22 13:50 | XMS_ITS | Clinical Summary ---
Author Organization [facility] Address [facility] [place] [address] Care Team Providers Care Bench Technician Name Role Phone Jimbo More Primary Care Provider + Allergies Active Allergy Reactions Criticality Noted Date Comments Gemfibrozil 09/02/2017 Medications Medication Sig Dispensed Refills Start Date End Date Status acetaminophen (TYLENOL) 325 mg Tablet Take 2 tablets by mouth every 6 hours as needed for Pain. 30 tablet 1 03/11/2018 Active Additional Information Patient taking differently:650 mg OralPRN, Pain, Reported on 07/20/2024 aspirin 81 mg Tablet, Chewable Take 81 mg by mouth daily. 30 tablet 3 03/12/2018 Active Additional Information Patient not taking.Reported on 07/20/2024 atorvastatin (LIPITOR) 40 mg Tablet Take 1 tablet by mouth every evening. 90 tablet 3 03/11/2018 Active calcium carbonate (TUMS) 200 mg calcium (500 mg) Tablet, Chewable Take 1 tablet by mouth nightly. 30 tablet 3 03/11/2018 Active Additional Information Patient not taking.Reported on 07/20/2024 cholecalciferol, Vitamin D3, 1,000 unit Tablet Take 1 tablet by mouth daily. 90 tablet 3 03/12/2018 Active desmopressin (DDAVP) 0.1 mg Tablet Take 1 tablet by mouth every morning. 30 tablet 3 03/12/2018 Active hydrocortisone (CORTEF) 20 mg Tablet Take 1 tablet by mouth every morning. 30 tablet 3 03/12/2018 Active Additional Information Patient not taking.Reported on 07/20/2024 hydrocortisone (CORTEF) 10 mg Tablet Take 1 tablet by mouth Daily at Noon. 30 tablet 3 03/12/2018 Active Additional Information Patient taking differently: 20 mgOral DAILY AT NOON,Takes 20 mg in the am and 10 mg in 2pm, Reported on 07/20/2024 levothyroxine (SYNTHROID) 75 mcg Tablet Take 3 tablets by mouth every morning. 90 tablet 3 03/12/2018 Active Additional Information Patient not taking.Reported on 07/20/2024 melatonin 3 mg Tablet Take 3 tablets by mouth nightly. 90 tablet 3 03/11/2018 Active Additional Information Patient not taking.Reported on 07/20/2024 methyl salicylate-menthol (BENGAY) 15-10 % Cream Apply 1 Application topically 2 times daily. 30 g 03/11/2018 Active omeprazole (PRILOSEC) 40 mg Capsule, Delayed Release(E.C.) Take 1 capsule by mouth daily. 30 capsule 3 03/11/2018 Active polyethylene glycol (MIRALAX) 17 gram Powder in Packet Take 17 g by mouth daily as needed (If not bowel movement in last 24 hours.). 14 each 03/11/2018 Active Additional Information Patient taking differently:17 g OralPRN, If not bowel movement in last 24 hours., Reported on 07/20/2024 QUEtiapine (SEROQUEL) 50 mg Tablet Take 5 tablets by mouth nightly. 30 tablet 3 03/11/2018 Active Additional Information Patient not taking.Reported on 07/20/2024 senna-docusate (PERICOLACE) 8.6-50 mg Tablet Take 2 tablets by mouth 2 times daily. 60 tablet 11 03/11/2018 Active Additional Information Patient not taking.Reported on 07/20/2024 traZODone (DESYREL) 50 mg Tablet Take 1 tablet by mouth nightly. 90 tablet 3 03/11/2018 Active Additional Information Patient not taking.Reported on 07/20/2024 zonisamide (ZONEGRAN) 100 mg Capsule Take 2 capsules by mouth nightly. 30 capsule 3 03/11/2018 Active Additional Information Patient taking differently: 400 mgOral NIGHTLY, Reported on 07/20/2024 QUEtiapine (SEROQUEL) 50 mg Tablet Take 1 tablet by mouth 2 times daily as needed. 60 tablet 3 03/11/2018 Active Additional Information Patient not taking.Reported on 07/20/2024 Diaper,Brief, Adult,Disposable Misc Daily / as needed for incontinence 90 each 3 03/11/2018 Active ferrous gluconate 324 mg (37.5 mg iron) Tablet Take 324 mg by mouth every other day. Active baclofen (LIORESAL) 20 mg Tablet Take 20 mg by mouth 3 times daily. 10/09/2021 Active cetirizine (ZyrTEC) 10 mg Tablet Take 10 mg by mouth daily. 10/09/2021 Active hydrOXYzine (Atarax) 25 mg Tablet Take 25 mg by mouth as needed. 10/03/2021 Active montelukast (Singulair) 10 mg Tablet Take 10 mg by mouth every morning. 08/22/2021 Active Magnesium Gluconate 27 mg magnesium (500 mg) Tablet Take 1 tablet by mouth 2 times daily. 09/28/2021 Active mupirocin (Bactroban) 2 % Ointment 09/10/2021 Active pyridoxine, Vitamin B6, (Vitamin B6) 50 mg Tablet Take 50 mg by mouth every morning. 10/22/2021 Active menthol/camphor (BIOFREEZE-ILEX TOP) Apply topically as needed. Active QUEtiapine (Seroquel) 200 mg tablet Take 200 mg by mouth nightly. Takes with 100 mg Active QUEtiapine (Seroquel) 100 mg tablet Take 100 mg by mouth 2 times daily. Active prazosin (Minipress) 2 mg capsule Take 2 mg by mouth nightly. 03/03/2023 Active tasimelteon (Hetlioz) 20 mg capsule Take 20 mg by mouth nightly. Active alendronate (Fosamax) 70 mg tablet Take 70 mg by mouth every 7 days. 03/04/2024 Active levothyroxine (Synthroid) 200 mcg tablet Take 200 mcg by mouth every morning. Active melatonin 10 mg capsule Take 10 mg by mouth nightly. With 1 mg balm leaf extra Active aspirin EC 81 mg EC (DR) tablet Take 81 mg by mouth Daily @ 0600. Active calcium carbonate (Tums) 500 mg calcium (1,250 mg) chewable tablet Take 1 tablet by mouth daily. Active Active Problems Problem Noted Date Diagnosed [...] Encounters Date Type Department Care Team Description 07/20/2024 1:30 PM EST [place] [phone] Eron Barriga MD Schwannoma 07/20/2024 Travel 06/16/2024 [place] [phone] Lauren Ruby MD Appointment 2024 3:10 PM EST - 2024 4:30 [place] [phone] RESOURCE, ANESTHESIA-[place] MRI WITH ANESTHESIA (WRVU *) 2024 2:56 [place] [address] Akin Mcneill MD 06/14/2024 9:50 AM EST Ancillary Procedure Radiology Library at [facility] KAREY Alarcon [address] 06/14/2024 12:57 AM EST - 06/21/2024 3:06 PM EST Hospital Encounter Neuro Special Care Unit Level 3 [place] [phone] West, Mariola C, MD Stanley, MD Lesli Deleon Elias E, MD Raicek, Jacqueline E, DO Amell, Fredrik B, MD Sleep disorder; Hyponatremia; Agitation Discharge Disposition: Prison Facility 06/13/2024 Ancillary Procedure Radiology Library at [facility] [place] [address] Ren Vaz MD from Last 3 Months Social History Tobacco Use Types Packs/Day Years Used Date Smoking Tobacco: Never Smokeless Tobacco: Never Alcohol Use Standard Drinks/Week Comments No 0 (1 standard drink = 0.6 oz pur e alcohol) [facility] Utilities Answer Date Recorded In the past [...] any time in the past 12 m [facility], were you homeless or living in a long-term (including now)? No 2024 IPV Inpatient Questions [...] EST Inhaled Oxygen Concentration - - Weight 95.3 kg (210 lb) 07/20/2024 2:30 PM EST Height 175.3 cm (5' 9) 07/20/2024 2:30 PM EST Body Mass Index 31.01 07/20/2024 2:30 PM EST Plan of Treatment Health Maintenance Due Date Last Done Comments HIV screen 2008 Hepatitis C Screening 2008 Hepatitis B vaccine (0-59 yrs) (1) 2009 Tetanus/Diphtheria/Pertussis Vaccines (1 - Tdap) 06/15 Covid-19 Vaccine (1 - 2023- season) 2024 Influenza (Flu) vaccine (1 o f 1 - Influenza standard series) 03/07/2024 Medical Devices Implanted Type Area Network Diagnostic Support Specialist Device Identifier Shelf Expiration Date Model / Serial / Lot Screw,Baljinder,Stap,3 .5x80mm ([id number]) (Autoreq) - [id number] Implanted:Qty: 1 on 09/04/2017 by Amy Lance MD at [facility] IMPLANTS Left: Pelvis DO NOT USE [employer] - [id number] / / Screw,Baljinder,Stap,3 .5x34mm ([id number]) ([employer]oreq) - [id number] Implanted:Qty: 1 on 09/04/2017 by Amy Lance MD at [facility] IMPLANTS Left: Pelvis DO NOT USE [employer] - [id number] / / Screw,Baljinder,Stap,3 .5x36mm ([id number]) ([employer]oreq) - [id number] Implanted:Qty: 1 on 09/04/2017 by Amy Lance MD at [facility] IMPLANTS Left: Pelvis DO NOT USE [employer] - [id number] / / Screw,Baljinder,Stap,3 .5x50mm ([id number]) - [id number] Implanted:Qty: 2 on 09/04/2017 by Amy Lance MD at [facility] IMPLANTS Left: Pelvis DO NOT USE [employer] - [id number] / / Screw,Baljinder,Stap,3 .5x55mm ([id number]) - [id number] Implanted:Qty: 3 on 09/04/2017 by Amy Lance MD at [facility] IMPLANTS Left: Pelvis DO NOT USE [employer] - [id number] / / Screw,Baljinder,Stap,3 .5x60mm ([id number]) - [id number] Implanted:Qty: 1 on 09/04/2017 by Amy Lance MD at [facility] IMPLANTS Left: Pelvis DO NOT USE [employer] - [id number] / / Screw,Baljinder,Stap,3 .5x65mm ([id number]) - [id number] Implanted:Qty: 2 on 09/04/2017 by Amy Lance MD at [facility] IMPLANTS Left: Pelvis DO NOT USE [employer] - [id number] / / Suprapectineal Plate (Qls Left) Implanted:Qty: 1 on 09/04/2017 by Amy Lance MD at [facility] Left: Pelvis 07/06/2022 [id number] / / [id number] 3.5mm Cortical Screw Self Tap 45mm Implanted:Qty: 1 on 09/04/2017 by Amy Lance MD at [facility] Left: Pelvis [id number] / / Explanted Type Area Network Diagnostic Support Specialist Device Identifier Shelf Expiration Date Model / Serial / Lot K-Wire [id number] Explanted:Qty: 1 on 09/04/2017 by Amy Lance MD at [facility] Left: Pelvis [id number] / / [id number] Procedures Procedure Name Priority Date/Time Associated Diagnosis [...] 2024 4:20 PM EST Unlisted Mri Procedure (90797) 2024 2:56 PM EST Please evaluate lesion [...] 06/14/2024 9:46 AM EST URINALYSIS BEAKER MICROSCOPIC ([facility]) SHEEBA 06/14/2024 8:06 AM EST URINALYSIS [...] CBC (with Diff) (06/21/2024 12:50 AM EST) Only the most recent of9 resultswithin the time period is included. White Blood Cell 7.52 4.00 - 9.50 x10(3)/mc L 06/21/2024 1:09 AM [facility] Red Blood Cell 5.33 4.58 - 5.54 x10(6)/mc L 06/21/2024 1:09 AM [facility] Hemoglobin 12.9(L) 13.7 - 16.5 g/dL 06/21/2024 1:09 AM [facility] Hematocrit 39.9(L) 40.5 - 48.5 % 06/21/2024 1:09 AM [facility] Mean Cell Volume 74.9(L) 82.9 - 93.1 fL 06/21/2024 1:09 AM [facility] Mean Cell Hemoglobin 24.2(L) 27.5 - 32.1 pg 06/21/2024 1:09 AM [facility] Mean Cell Hemoglobin Concentration 32.3 32.0 - 35.7 g/dL 06/21/2024 1:09 AM [facility] Platelet 268 145 - 357 x10(3)/mc L 06/21/2024 1:09 AM [facility] Mean Platelet Volume 9.1 7.6 - 12.9 fL 06/21/2024 1:09 AM [facility] RDW Standard Deviation 39.8 36.0 - 45.0 fL 06/21/2024 1:09 AM [facility] RDW coefficient of variation 15.0(H) 11.4 - 13.8 % 06/21/2024 1:09 AM [facility] NRBC% auto 0.0 % 06/21/2024 1:09 AM [facility] NRBC Absolute <0.01 <0.01 x10(3)/mc L 06/21/2024 1:09 AM [facility] Neutrophil % 63.6 % 06/21/2024 1:09 AM [facility] Neutrophil Absolute (ANC) - Automated 4.78 1.70 - 6.10 x10(3)/mc L 06/21/2024 1:09 AM [facility] Lymph % 23.7 % 06/21/2024 1:09 AM [facility] Lymph Absolute 1.78 0.90 - 3.20 x10(3)/mc L 06/21/2024 1:09 AM [facility] Monocyte % 9.8 % 06/21/2024 1:09 AM [facility] Monocyte Absolute 0.74 0.30 - 0.90 x10(3)/mc L 06/21/2024 1:09 AM [facility] Eos % 2.0 % 06/21/2024 1:09 AM [facility] Eos Absolute 0.15 0.00 - 0.40 x10(3)/mc L 06/21/2024 1:09 AM [facility] Basophil % 0.4 % 06/21/2024 1:09 AM [facility] Baso Absolute <0.04 0.00 - 0.10 x10(3)/mc L 06/21/2024 1:09 AM [facility] Immature Gran % 0.5 % 1:09 AM [facility] Immature Gran Absolute 0.04 0.00 - 0.04 x10(3)/mc L 06/21/2024 1:09 AM [facility] Blood VENOUS BLOOD SPECIMEN / Unknown Venipuncture / Unknown 06/21/2024 12:50 AM EST 06/21/2024 12:56 AM EST Martinez Reynolds MD HEMATOLOGY ORDERABLE S [facility] [place] [address] * Phosphorus (06/21/2024 12:50 AM EST) Only the most recent of9 resultswithin the time period is included. Phosphorus 3.2 2.5 - 4.5 mg/dL 06/21/2024 1:30 AM EST [facility] Blood VENOUS BLOOD SPECIMEN / Unknown Venipuncture / Unknown 06/21/2024 12:50 AM EST 06/21/2024 12:56 AM EST Martinez Reynolds MD CHEMISTRY ORDERABLES Performing Organization Address [facility] Co de Phone Number [facility] [place] [address] * Magnesium (06/21/2024 12:50 AM EST) Only the most recent of9 resultswithin the time period is included. Magnesium 0.81 0.69 - 1.07 mMol/L 06/21/2024 1:30 AM [facility] Blood VENOUS BLOOD SPECIMEN / Unknown Venipuncture / Unknown 06/21/2024 12:50 AM EST 06/21/2024 12:56 AM EST Martinez Reynolds MD CHEMISTRY ORDERABLES Performing Organization Address [facility] Co de Phone Number [facility] [place] [address] * (ABNORMAL) Hepatic Function Panel (06/21/2024 12:50 AM EST) Only the most recent of5 resultswithin the time period is included. Albumin 4.0 3.2 - 5.2 g/dL 06/21/2024 1:30 AM [facility] Aspartate Aminotransferase 47(H) <=39 unit/L 06/21/2024 1:30 AM [facility] Alanine Aminotransferase 64(H) 0 - 55 unit/L 06/21/2024 1:30 AM [facility] Alkaline Phosphatase 141(H) 40 - 130 unit/L 06/21/2024 1:30 AM [facility] Bilirubin, Total <0.2 <=1.3 mg/dL 06/21/2024 1:30 AM [facility] Bilirubin, Direct <0.2 0.0 - 0.3 mg/dL 06/21/2024 1:30 AM [facility] Protein, Total 7.1 6.1 - 8.0 g/dL 06/21/2024 1:30 AM [facility] Blood VENOUS BLOOD SPECIMEN / Unknown Venipuncture / Unknown 06/21/2024 12:50 AM EST 06/21/2024 12:56 AM EST Martinez Reynolds MD CHEMISTRY ORDERABLES [facility] [place] [address] * (ABNORMAL) Basic Metabolic Panel (06/21/2024 12:50 AM EST) Only the most recent of9 resultswithin the time period is included. Glucose 126 65 - 199 mg/dL 06/21/2024 1:44 AM [facility] Comment:Glucose Concentratio n >=200 mg/dL plus symptoms is consistent with Diabetes Mellitus. Blood Urea Nitrogen 12 10 - 20 mg/dL 06/21/2024 1:44 AM [facility] Creatinine 0.82 0.80 - 1.50 mg/dL 06/21/2024 1:44 AM [facility] Sodium 141 135 - 145 mMol/L 06/21/2024 1:44 AM [facility] Potassium 4.3 3.5 - 5.0 mMol/L 06/21/2024 1:44 AM [facility] Chloride 111(H) 98 - 107 mMol/L 06/21/2024 1:44 AM [facility] Carbon Dioxide 18(L) 22 - 31 mMol/L 06/21/2024 1:44 AM [facility] Anion Gap 12 5 - 15 mMol/L 06/21/2024 1:44 AM [facility] Calcium 9.0 8.5 - 10.5 mg/dL 06/21/2024 1:44 AM [facility] Est Glomerular Filtration Rate - Male 118 mL/min/1. 73 m?? 06/21/2024 1:44 AM EST [facility] Comment: This patient's estimated GFR [...] Reynolds MD CHEMISTRY ORDERABLES Performing Organization Address City/State/[facility] Co de Phone Number [facility] [place] [address] * Scan Doc: Telemetry Strips (06/20/2024 9:23 AM EST) Only the most recent of4 resultswithin the time period is included. Narrative 06/20/2024 9:23 AM EST Ordered by an unspecified provider. Scanning Provider MEDIA MGR SCAN EXT O RDR/RSLT * (ABNORMAL) Urinalysis with reflex Culture (06/19/2024 3:22 AM EST) Glucose, Urine Dipstick Negative Negative 06/19/2024 3:37 AM EST [facility] Protein, Urine Dipstick Negative Negative 06/19/2024 3:37 AM EST [facility] Bilirubin, Urine Dipstick Negative Negative 06/19/2024 3:37 AM EST [facility] Comment:Clinical correlation required for positive Urine Bilirubin results as false positive may occur with some drugs and drug related products. If a false positive is suspected a serum total bilirubin should be considered if clinically indicated. Urobilinogen, Urine Dipstick Normal Normal, 0.2 mg/dL, 1.0 mg/dL 06/19/2024 3:37 AM [facility] pH, Urine (dipstick) 6.5 5.0 - 8.0 06/19/2024 3:37 AM [facility] Blood, Urine Dipstick Negative Negative 06/19/2024 3:37 AM [facility] Ketone, Urine Dipstick Negative Negative 06/19/2024 3:37 AM [facility] Nitrite, Urine Dipstick Negative Negative 06/19/2024 3:37 AM [facility] Leukocytes, Urine Dipstick Negative Negative 06/19/2024 3:37 AM [facility] Specific [place] Urine Automated 1.021 1.005 - 1.030 06/19/2024 3:37 AM [facility] Appearance, Urine Dipstick Cloudy(A) Clear 06/19/2024 3:37 AM [facility] Color, Urine Dipstick Yellow Yellow, Dark Yellow 06/19/2024 3:37 AM [facility] CULTURE ADDED? 06/19/2024 3:37 AM [facility] Urine URINE SPECIMEN OBTAINED VIA STRAIGHT CATHETER / Unknown Non Blood Collection / Unknown 06/19/2024 3:22 AM EST 06/19/2024 3:31 AM EST Pamela Johnson DO URINE ORDERABLES [facility] [place] [address] * XR Chest One View (06/18/2024 7:55 PM EST) Only the most recent of2 resultswithin the time period is included. WORKSTATION ID [id number] DH RAD Anatomical Region Laterality Modality Chest N/A [...] who have questions please contact the health care director rn that requested your imaging first. ? Electronically signed by: Tobias Sotomayor MD, [facility] ([phone]), at 06/18/2024 8:09 PM Narrative 06/18/2024 8:09 [...] patients who have questions please contactthe health care director rn that requested your imaging first. Electronically signed by: Tobias Sotomayor MD, [facility]([phone]), at 06/18/2024 8:09 PM Pamela Johnson DO IMG DX ORDERABLES * Blood culture (06/18/2024 7:00 PM EST) Only the most recent of2 resultswithin the time period is included. Pathologist [facility] Blood Culture No growth at 120 hours 06/23/2024 8:00 PM EST [facility] Blood VENOUS BLOOD SPECIMEN / Unknown Venipuncture / Unknown 06/18/2024 7:00 PM EST 06/18/2024 7:05 PM EST Pamela Johnson DO MICROBIOLOGY - BL OOD ORDERABLES Performing Organization Address [facility] Co de Phone Number [facility] [place] [address] * POC, GLUCOSE (06/18/2024 6:55 PM EST) Only the most recent of2 resultswithin the time period is included. [facility] Glucometer, POC 100 65 - 199 mg/dL 06/18/2024 6:56 PM EST [facility] Comment:Supplemental ranges: <140 mg/dL before meals <180 mg/dL all other times of the day. Blood CAPILLARY BLOOD / Unknown 06/18/2024 6:55 PM EST 06/18/2024 6:56 PM EST Pamela Johnson DO POINT OF CARE TABATHA T ORDERABLES Performing Organization Address City/[facility] Co de Phone Number [facility] [place] [address] * EKG 12 Lead (06/18/2024 1:41 PM EST) Only the most recent of3 resultswithin the time period is included. [facility] Ventricular rate 47 BPM MUSE SYSTEM Atrial Rate 47 BPM MUSE SYSTEM P-R Interval 186 ms MUSE SYSTEM QRS Duration 114 ms MUSE SYSTEM Q-T Interval 558 ms MUSE SYSTEM QTC Calculated (Bezet) 493 ms MUSE SYSTEM Calculated P [place] 11 degrees MUSE SYSTEM Calculated R [place] 45 degrees MUSE SYSTEM Calculated T [place] 45 degrees MUSE SYSTEM INTERPRETATION Sinus bradycardia [...] of17 resultswithin the time period is included. Sodium 135 135 - 145 mMol/L 06/18/2024 1:01 PM EST [facility] Blood VENOUS BLOOD SPECIMEN / Unknown Venipuncture / Unknown 06/18/2024 12:22 PM EST 06/18/2024 12:35 PM EST Pamela Johnson DO CHEMISTRY ORDERAB LES [facility] [place] [address] * CT Head wo Contrast (Generic) (06/18/2024 11:18 AM EST) WORKSTATION ID [id number] RAD Anatomical Region Laterality Modality Head Computed [...] who have questions please contact the health care director rn that requested your imaging first. ? Electronically signed by: Jimbo Casillas MD, [facility] ([phone]), at 06/18/2024 11:37 AM Narrative 06/18/2024 11:37 [...] patients who have questions please contactthe health care director rn that requested your imaging first. Electronically signed by: Jimbo Casillas MD, [facility]([phone]), at 06/18/2024 11:37 AM Pamela Johnson DO IMG CT ORDERABLES * MRI Brain wwo Contrast (Generic) (2024 4:20 PM EST) WORKSTATION ID [id number] RAD Anatomical Region Laterality Modality Head Magnetic [...] who have questions please contact the health care director rn that requested your imaging first. ? Electronically signed by: Raudel Heredia MD, [facility] ([phone]), at 2024 4:46 PM Narrative 2024 4:46 [...] clip with its blades near the right GLOVE FINISHER. Procedure Note Raudel Heredia MD - 2024 [...] aneurysm clipwith its blades near the right GLOVE FINISHER. IMPRESSION Homogeneously enhancing 3.5 cm mass along [...] patients who have questions please contactthe health care director rn that requested your imaging first. Electronically signed by: Raudel Heredia MD, [facility]([phone]), at 2024 4:46 PM Marline Calderon APRN IMG MRI ORDERABLES * [...] Head (06/14/2024 9:46 AM EST) WORKSTATION ID [id number] [facility] Anatomical Region Laterality Modality Head SO Impressions [...] who have questions please contact the health care director rn that requested your imaging first. ? Electronically signed by: MATEO Smart [facility] ([phone]), at 06/14/2024 10:41 AM Narrative 06/14/2024 10:41 AM EST EXAMINATION: REQUEST FOR 2ND READ CT HEAD CLINICAL HISTORY: New seizure with known mass, ?enlargening. Presenting with seizure; Sending Institution [facility]; Date of exam [id number]; I believe a [...] known mass, ?enlargening. Presentingwith seizure; Sending Institution [facility]; Date of exam [id number]; I believe a reinterpretation of this exam may alter care of Patient. Yes TECHNIQUE: Reinterpretation of noncontrast CT head performed at [facility] 06/13/2024 at 2143 hours COMPARISON: [...] patients who have questions please contactthe health care director rn that requested your imaging first. Lexie Osullivan APRN IMG OUTSIDE INTERP RETATION ORDERABLES * (ABNORMAL) Urinalysis Microscopic (06/14/2024 8:06 AM EST) Bacteria, Urine None None /HPF 12:26 PM EST [facility] Amorphous Crystals, Urine Many(A) None /HPF 06/14/2024 12:26 PM EST [facility] RBC, Urine 1 0 - 3 /HPF 06/14/2024 12:26 PM EST [facility] WBC, Urine 1 0 - 3 /HPF 06/14/2024 12:26 PM EST [facility] Squamous Epithelial Cells, Urine 0 0 - 5 /HPF 06/14/2024 12:26 PM EST [facility] Hyaline Casts, Urine 0 0 - 2 /LPF 06/14/2024 12:26 PM EST [facility] Urine URINE SPECIMEN / Unknown Non Blood Collection / Unknown 06/14/2024 8:06 AM EST 06/14/2024 8:52 AM EST Marline Calderon DOCUMENT ADVISOR URINE ORDERABLES [facility] [place] [address] * Urinalysis Microscopic Exam (06/14/2024 8:06 AM EST) Urine URINE SPECIMEN / Unknown Non Blood Collection / Unknown 06/14/2024 8:06 AM EST 06/14/2024 8:52 AM EST Marline Calderon APRN URINE ORDERABLES [facility] [place] [address] * Electrolytes, urine, random (06/14/2024 8:06 AM EST) Sodium, Urine 76 mMol/L 06/14/2024 10:44 AM EST [facility] Potassium, Urine 41 mMol/L 06/14/2024 10:44 AM EST [facility] Chloride, Urine 52 mMol/L 06/14/2024 10:44 AM EST [facility] Urine URINE SPECIMEN / Unknown Non Blood Collection / Unknown 06/14/2024 8:06 AM EST 06/14/2024 8:52 AM EST Mariola Alfred MD URINE ORDERABLES Performing Organization Address City/[facility]/ZIP Co de Phone Number [facility] [place] [address] * Osmolality, urine, random (06/14/2024 8:06 AM EST) Osmolality, Urine 496 50 - 1,200 mOsm/kg 06/14/2024 10:55 AM EST [facility] Urine URINE SPECIMEN / Unknown Non Blood Collection / Unknown 06/14/2024 8:06 AM EST 06/14/2024 8:52 AM EST Mariola Alfred MD URINE ORDERABLES [facility] [place] [address] * (ABNORMAL) Urinalysis Dipstick (06/14/2024 8:06 AM EST) Glucose, Urine Dipstick Negative Negative 06/14/2024 12:26 PM EST [facility] Protein, Urine Dipstick Negative Negative 06/14/2024 12:26 PM [facility] Bilirubin, Urine Dipstick Negative Negative 06/14/2024 12:26 PM [facility] Comment:Clinical correlation required for positive Urine Bilirubin results as false positive may occur with some drugs and drug related products. If a false positive is suspected a serum total bilirubin should be considered if clinically indicated. Urobilinogen, Urine Dipstick Normal Normal, 0.2 mg/dL, 1.0 mg/dL 06/14/2024 12:26 PM [facility] pH, Urine (dipstick) 7.0 5.0 - 8.0 06/14/2024 12:26 PM [facility] Blood, Urine Dipstick Negative Negative 06/14/2024 12:26 PM [facility] Ketone, Urine Dipstick Negative Negative 06/14/2024 12:26 PM [facility] Nitrite, Urine Dipstick Negative Negative 06/14/2024 12:26 PM [facility] Leukocytes, Urine Dipstick Negative Negative 06/14/2024 12:26 PM [facility] Specific [place] Urine Automated 1.016 1.005 - 1.030 06/14/2024 12:26 PM [facility] Appearance, Urine Dipstick Turbid(A) Clear 06/14/2024 12:26 PM [facility] Color, Urine Dipstick Yellow Yellow, Dark Yellow 06/14/2024 12:26 PM [facility] CULTURE ADDED? 06/14/2024 12:26 PM [facility] Urine URINE SPECIMEN / Unknown Non Blood Collection / Unknown 06/14/2024 8:06 AM EST 06/14/2024 8:52 AM EST Marline Calderon APRN URINE ORDERABLES [facility] [place] [address] * (ABNORMAL) Blood Gas, Venous POC (06/14/2024 1:35 AM EST) pH, Venous 7.39 7.32 - 7.42 06/14/2024 1:36 AM [facility] PCO2, Venous 37(L) 38 - 58 mmHg 06/14/2024 1:36 AM [facility] PO2, Venous 27 16 - 65 mmHg 06/14/2024 1:36 AM [facility] Bicarbonate, Venous 21.9(L) 22 - 31 mmol/L 06/14/2024 1:36 AM [facility] Base Excess, Venous -3.1(L) 1.9 - 4.5 mmol/L 06/14/2024 1:36 AM [facility] Hemoglobin, Venous 13.4(L) 13.7 - 16.5 g/dL 06/14/2024 1:36 AM [facility] Oxyhemoglobin, Venous 46.8 % 06/14/2024 1:36 AM [facility] Carboxyhemoglobin , Venous 0.7 % 06/14/2024 1:36 AM [facility] Comment: Nonsmokers: 0.5-1.5% COHB ?? Smokers: Variable ??but usually less than 10% ?? Toxic: 20-30% COHB ?? Lethal: Greater than 60% COHB Methemoglobin, Venous 0.3 <=1.5 % 06/14/2024 1:36 AM [facility] Sodium, Venous 123(L) 135 - 145 mmol/L 06/14/2024 1:36 AM [facility] Potassium, Venous 3.7 3.5 - 5.0 mmol/L 06/14/2024 1:36 AM [facility] Chloride, Venous 92(L) 98 - 107 mmol/L 06/14/2024 1:36 AM [facility] Glucose, Venous 85 65 - 199 mg/dL 06/14/2024 1:36 AM [facility] Comment:Glucose Concentratio n >=200 mg/dL plus symptoms is consistent with Diabetes Mellitus. Lactate, Venous 2.3(H) 0.5 - 2.2 mmol/L 06/14/2024 1:36 AM EST [facility] Ionized Calcium, Venous 1.10(L) 1.15 - 1.33 mmol/L 06/14/2024 1:36 AM EST [facility] Blood VENOUS BLOOD SPECIMEN / Unknown 06/14/2024 1:35 AM EST 06/14/2024 1:36 AM EST Mariola Alfred MD POINT OF CARE TEST O RDERABLES Performing Organization Address [facility] Co de Phone Number [facility] [place] [address] * Scan, Peripheral Blood (06/14/2024 1:03 AM EST) RBC Morphology Abnormal 06/14/2024 2:00 AM [facility] Platelet Estimate Normal Normal 06/14/2024 2:00 AM EST [facility] Microcyte 1-5 /HPF 06/14/2024 2:00 AM EST [facility] Tear Cell 1-5 /HPF 06/14/2024 2:00 AM EST [facility] Blood VENOUS BLOOD SPECIMEN / Unknown Venipuncture / Unknown 06/14/2024 1:03 AM EST 06/14/2024 1:08 AM EST Mariola Alfred MD HEMATOLOGY ORDERABLE S Performing Organization Address City/[facility]/ZIP Co de Phone Number [facility] [place] [address] * Zonisamide level (06/14/2024 1:03 AM EST) Zonisamide Lvl November 17 10 - 40 mcg/mL 06/16/2024 9:22 PM EST [facility] [place] Comment: ADDITIONAL INFORMATION This test was developed and its performance characteristics determined by [facility] in a manner consistent with CLIA requirements. This test has not been cleared or approved by the U.S. Food and Drug Administration. Blood VENOUS BLOOD SPECIMEN / Unknown Venipuncture / Unknown 06/14/2024 1:03 AM EST 06/14/2024 1:08 AM EST Narrative [facility] [place] - 06/16/2024 9:22 PM EST Test Performed by: [place] [id number] Slate Worker: Xavier Velásquez Ph.D.; CLIA# [id number] Mariola Alfred MD LAB SEND OUT ORDERAB LES RE[facility] [address] * T3 Total (06/14/2024 1:03 AM EST) T3 Total 87 80 - 200 ng/dL 06/14/2024 1:46 AM EST [facility] Blood VENOUS BLOOD SPECIMEN / Unknown Venipuncture / Unknown 06/14/2024 1:03 AM EST 06/14/2024 1:08 AM EST Mariola Alfred MD CHEMISTRY ORDERABLES Performing Organization Address City/[facility]/ZIP Co de Phone Number [facility] [place] [address] * T4, free (06/14/2024 1:03 AM EST) Free T4 1.37 0.93 - 1.70 ng/dL 06/14/2024 1:46 AM EST [facility] Blood VENOUS BLOOD SPECIMEN / Unknown Venipuncture / Unknown 06/14/2024 1:03 AM EST 06/14/2024 1:08 AM EST Mariola Alfred MD CHEMISTRY ORDERABLES Performing Organization Address City/[facility]/ZIP Co de Phone Number [facility] [place] [address] * (ABNORMAL) Osmolality (06/14/2024 1:03 AM EST) Osmolality 259(L) 275 - 295 mOsm/kg 06/14/2024 1:40 AM EST [facility] Blood VENOUS BLOOD SPECIMEN / Unknown Venipuncture / Unknown 06/14/2024 1:03 AM EST 06/14/2024 1:08 AM EST Mariola Alfred MD CHEMISTRY ORDERABLES Performing Organization Address City/State/[facility] Co de Phone Number [facility] [place] [address] * Film Library- Storage Only CT Head (06/13/2024 12:00 AM EST) Narrative [facility] 06/14/2024 12:43 AM EST This exam is auto-finalizing. It's purpose is for storage only. Ren Vaz MD IMG FILM LIBRARY ORD ERABLES Performing Organization Address [facility] Co de Phone Number [place], [place] from Last 3 Months Advance Directives Documents on File Type Date Recorded Patient Rn Bariatric Expl anation Guardianship document 06/22/2024 1:11 PM [...] Name (and relationship if needed): sister Jayme [facility] Bench Technician Relationship Specialty Start Date End Date Jimbo More PA [employer] [place] [address] PCP - General Internal Medicine 06/18/24
--- OUTSIDE RECORDS SUMMARY | 2024-07-22 13:50 | XMS_ITS | Encounter Summary ---
Author Organization [facility] Address [address] [place] [address] Care Team Providers Care Acid Conditioner Name Role Phone Yan Demarco MD Primary Care Provider Corin Skinner MD Primary Care Provider Akil Serrano MD Primary Care Provider [phone] Encounter Details Date Type Department Care Team (Late st Contact Info) Description 10/05/2004 Results Only [facility] Pediatric Neurology - Main [place] [address] [place], [place] [address] Ade Malloy MD [address] [place] [address] [phone] Social History Tobacco Use Types Packs/Day Years [...] Visit [facility] Endocrinology - [facility] [address] [place] [address] Wilder Zaidi, DO [address] [facility] [address] [place] [address] documented as of this encounter [...] MIGUEL ANGEL MASON ? Accession #: ? [id number] : ? 1990 (Age: 14) ??M ?Collect [...] cleft cyst. Clinical correlation is recommended. ??(Dr. Jimenez)/[facility] Document reviewed and electronically signed by: ? GABRIEL JACOBS MD [facility] Report Date: ??10/09/2004 12:19 By the [...] Ade Malloy MD PATHOLOGY ORDERABLES Final Result Performing Organization Address City/State/[facility] Co de Phone Number [facility] [address] [place] [address] documented in this encounter Visit Diagnoses Not on filedocumented in this encounter Care Teams Acid Conditioner Relationship Specialty Start Date End Date Yan Demarco MD [address] [place] [address] PCP - General 08/22/09 02/20/10 Corin Skinner MD [address] [place] [phone] PCP - General 10/24/08 08/21/09 Akil Serrano MD [address] [place] [address] PCP - General 02/21/10 04/16/11 documented as of this encounter
--- OUTSIDE RECORDS SUMMARY | 2024-07-22 13:50 | XMS_ITS | Encounter Summary ---
Author Organization [facility] Address [address] [place] [address] Care Team Providers Care Blanket Maker Name Role Phone Yan Demarco MD Primary Care Provider Corin Skinner MD Primary Care Provider Akil Serrano MD Primary Care Provider [phone] Encounter Details Date Type Department Care Team (Late st Contact Info) Description 11/13/2004 Before PRISM Converted Visit (Map[facility]) [facility] - Maple conversion [address] [place] [address] Kylie Larson MD [address] [place] [phone] Social History Tobacco Use Types Packs/Day Years [...] scratch his face spontaneously. He did not facer operator specifically to command but seemed to automatically facer operator my hand when I gripped his. He [...] response when trying to open his mouth. director clinical information services and social work continued to work on [...] 11/13/2004 17:06:53 - chelle Voice ID - [id number] Document ID - [id number] cc: KYLIE DIAZ MD, REFERRING PHYSICIAN This document has been electronically signed by KYLIE LARSON MD on 11/14/2004 13:52:29. documented in this encounter Plan of Treatment Upcoming Encounters Date Type Department Care Team (Late st Contact Info) Description 10/01/2024 13:40 EDT Office Visit [facility] Endocrinology - [facility] [address] [place] [address] Wilder Zaidi, DO [address] [facility] [address] [place] [address] documented as of this encounter Visit Diagnoses Not on filedocumented in this encounter Care Teams Blanket Maker Relationship Specialty Start Date End Date Yan Demarco MD [address] [place] [address] PCP - General 08/22/09 02/20/10 Corin Skinner MD [address] [address] PCP - General 10/24/08 08/21/09 Akil Serrano MD [address] [facility] [address] [place] [address] PCP - General 02/21/10 04/16/11 documented as of this encounter
--- OUTSIDE RECORDS SUMMARY | 2024-07-22 13:50 | XMS_ITS | Encounter Summary ---
Author Organization [facility] Address [address] [place] [address] Care Team Providers Care Operations Analyst Name Role Phone Yan Demarco MD Primary Care Provider Corin Skinner MD Primary Care Provider Akil Serrano MD Primary Care Provider [phone] Encounter Details Date Type Department Care Team (Late st Contact Info) Description 10/08/2004 Before PRISM Converted Visit ([facility]) [facility] - Maple conversion [address] [place] [address] Jose Armando Alejo MD [address] [place] [address] Social History Tobacco Use Types Packs/Day Years [...] JOSE ARMANDO ALEJO MD, ADE MALLOY MD FAST FOOD MANAGER: CONSTANTINO BERMUDEZ MD PREOPERATIVE DIAGNOSIS: Craniopharyngioma cyst. [...] 10/08/2004 14:14:21 - cs Voice ID - [id number] Document ID - [id number] cc: ADE DIAZ MD, REFERRING PHYSICIAN JOSE ARMANDO ALEJO MD, ATTENDING PHYSICIAN This document has been electronically signed by JOSE ARMANDO ALEJO MD on 10/11/2004 15:42:12. documented in this encounter Plan of Treatment Upcoming Encounters Date Type Department Care Team (Late st Contact Info) Description 10/01/2024 13:40 EDT Office Visit [facility] - [facility] [address] [place] [address] Wilder Zaidi, 62 [facility] [address] [place] [address] documented as of this encounter Visit Diagnoses Not on filedocumented in this encounter Care Teams Operations Analyst Relationship Specialty Start Date End Date Yan Demarco MD [address] [place] [address] PCP - General 08/22/09 02/20/10 Corin Skinner MD [address] [address] PCP - General 10/24/08 08/21/09 Akil Serrano MD 74 [facility],[address] [address] PCP - General 02/21/10 04/16/11 documented as of this encounter
--- OUTSIDE RECORDS SUMMARY | 2024-07-22 13:50 | XMS_ITS | Encounter Summary ---
Author Organization [facility] Address [address] [place] [address] Care Team Providers Care Console Manager Name Role Phone Yan Demarco MD Primary Care Provider Corin Skinner MD Primary Care Provider Akil Serrano MD Primary Care Provider [phone] Encounter Details Date Type Department Care Team (Late st Contact Info) Description 10/08/2004 Before PRISM Converted Visit (Maple) [facility] - Maple conversion [address] [place] [address] Hilton Malloy MD [address] [place] [phone] Social History Tobacco Use Types Packs/Day Years Used Date Smoking Tobacco: Never Assessed Sex and Gender Information Value Date Recorded Sex Assigned at Not on file Legal Sex Male 18:35 EST Gender Identity Not on file Sexual Orientation Not on file documented as of this encounter Procedure Notes * Ricki, Conv Head Knitting Machine Fixer - 02/13/2011 1243 EDT DATE: 10/05/2004 SURGEON: HILTON MALLOY MD TRUCK SERVICE MANAGER: JOSE ARMANDO ALEJO MD; ROSEY GUALLPA MD; CONSTANTINO BERMUDEZ MD PREOPERATIVE DIAGNOSIS: POSTOPERATIVE [...] and his head was placed in the [place] three-point headholder fixator device. At that point, [...] cyst. This was opened sharply with a [place] blade scalpel, and immediately, a large amount [...] MALLOY MD t - 10/08/2004 07:58:16 - jenn Voice ID - [id number] Document ID - [id number] cc: JOSE ARMANDO GUALLPA MD RESIDENT CONSTANTINO BERMUDEZ MD RESIDENT TOO DIAZ MD, REFERRING PHYSICIAN HILTON MALLOY MD, ATTENDING PHYSICIAN This document has been electronically signed by HILTON MALLOY MD on 10/08/2004 10:50:11. documented in this encounter Plan of Treatment Upcoming Encounters Date Type Department Care Team (Late st Contact Info) Description 10/01/2024 13:40 EDT Office Visit [facility] Endocrinology - [facility] [address] [place], [place] [id number] Wilder Zaidi, DO [address] [facility] [address] [place] [address] documented as of this encounter Visit Diagnoses Not on filedocumented in this encounter Care Teams Console Manager Relationship Specialty Start Date End Date Yan Demarco MD [address] [place] [phone] PCP - General 08/22/09 02/20/10 Corin Skinner MD [address] [address] PCP - General 10/24/08 08/21/09 Akil Serrano MD 74 [facility],[address] [phone] PCP - General 02/21/10 04/16/11 documented as of this encounter
--- OUTSIDE RECORDS SUMMARY | 2024-07-22 13:50 | XMS_ITS | Encounter Summary ---
Author Organization [facility] Address [address] [place] [address] Care Team Providers Care Basket Patcher Name Role Phone Unavailable Primary Care Provider Unavailabl e Encounter Details Date Type Department Care Team (Late st Contact Info) Description 10/05/2004 6:16 EST - 11/20/2004 11:59 EDT Hospital Encounter [facility] [address] [place], [place] [id number] Jodi Parr MD [address] [facility], [address] [phone] Hilton Álvarez MD [address] [place] [phone] Discharge Disposition: [facility] Social History [...] immediate postoperative course. He was transferred to [address] on November 07, 2004. HOSPITAL COURSE: [...] of DDAVP (desmopressin) q.8h. at 0600, 1400 [id number] via his G-tube. His sodiums originally were [...] Jodi Parr MD 02/20/2005 07:31 raj Gonzalez, [facility], [facility] Parr MD Dictated by: Marvin Gonzalez MD Jodi Parr MD - Marvin Gonzalez MD - chelle Job ID: [id number] Document ID: [id number] Re-created from ExText 01/24/2005 cc: MD Too [...] immediate postoperative course. He was transferred to [address] [facility] on November 07, 2004. HOSPITAL COURSE: . [...] of DDAVP (desmopressin) q.8h. at 0600, 1400 [id number] via his G-tube. His sodiums originally were [...] Marvin Gonzalez MD - chelle Job ID: [id number] Document ID: [id number] Re-created in [employer] 01/29/2005 cc: MD Marvin Ross MD Christa M Zehle, MD Paul James Zimakas, MD documented in this encounter Discharge Disposition Disposition Code Departure Means Destination [facility] documented in this encounter Plan of Treatment Upcoming Encounters Date Type Department Care Team (Late st Contact Info) Description 10/01/2024 13:40 EDT Office Visit [facility] Endocrinology - [place] [address] [place], [place] [id number] Dejuan Wilder Ayalaip, DO [address] [place] [phone] documented as of this encounter [...] plasma. 11/20/2004 7:55 EDT 11/20/2004 8:23 EDT us Jodi Parr MD CHEMISTRY & BLOOD GAS ORDERABLE S Final Result Performing Organization Address [facility] de Phone Number [facility] [address] [place] [address] * SODIUM (11/19/2004 20:05 EDT) Sodium 145 136 - 145 mEq/L [facility] 11/19/2004 20:0 5 EDT 11/19/2004 20:29 EDT us Jodi Parr MD CHEMISTRY & BLOOD GAS ORDERABLE S Final Result Performing Organization Address [facility] Phone Number [facility] [address] [place] [address] * (ABNORMAL) SODIUM (11/19/2004 8:00 EDT) Sodium 147(H) 136 - 145 mEq/L [facility] Comment:Heparinized plasma. 11/19/2004 8:00 EDT 11/19/2004 8:16 EDT us Jodi Parr MD CHEMISTRY & BLOOD GAS ORDERABLE S Final Result Performing Organization Address [facility] de Phone Number [facility] [address] [place] [address] * SODIUM (11/18/2004 20:00 EDT) Sodium 144 136 - 145 mEq/L [facility] 11/18/2004 20:0 0 EDT 11/18/2004 20:41 EDT us Jodi Parr MD CHEMISTRY & BLOOD GAS ORDERABLE S Final Result Performing Organization Address [facility] de Phone Number [facility] [address] [place] [address] * (ABNORMAL) SODIUM (11/18/2004 14:00 EDT) Sodium 147(H) 136 - 145 mEq/L [facility] 11/18/2004 14:0 0 EDT 11/18/2004 14:38 EDT us Jodi Parr MD CHEMISTRY & BLOOD GAS ORDERABLE S Final Result Performing Organization Address [facility] de Phone Number [facility] [address] [place] [address] * (ABNORMAL) SODIUM (11/18/2004 8:00 EDT) Sodium 146(H) 136 - 145 mEq/L [facility] 11/18/2004 8:00 EDT 11/18/2004 8:24 EDT us Jodi Parr MD CHEMISTRY & BLOOD GAS ORDERABLE S Final Result Performing Organization Address [facility] de Phone Number [facility] [address] [place] [address] * SODIUM (11/17/2004 20:15 EDT) Sodium 141 136 - 145 mEq/L [facility] 11/17/2004 20:1 5 EDT 11/17/2004 20:46 EDT us Jodi Parr MD CHEMISTRY & BLOOD GAS ORDERABLE S Final Result Performing Organization Address [facility] de Phone Number [facility] [address] [place] [address] * SODIUM (11/17/2004 12:00 EDT) Sodium 142 136 - 145 mEq/L [facility] Comment:Heparinized plasma. 11/17/2004 12:0 0 EDT 11/17/2004 12:37 EDT us Jodi Parr MD CHEMISTRY & BLOOD GAS ORDERABLE S Final Result [facility] [address] [place] [address] * SODIUM (11/17/2004 4:00 EDT) Sodium 140 136 - 145 mEq/L [facility] 11/17/2004 4:00 EDT 11/17/2004 4:01 EDT us Jodi Parr MD CHEMISTRY & BLOOD GAS ORDERABLE S Final Result [facility] [address] [place] [address] * SODIUM (11/16/2004 19:45 EDT) Sodium 141 136 - 145 mEq/L [facility] 11/16/2004 19:4 5 EDT 11/16/2004 20:20 EDT us Jodi Parr MD CHEMISTRY & BLOOD GAS ORDERABLE S Final Result Performing Organization Address [facility] de Phone Number [facility] [address] [place] [address] * SODIUM (11/16/2004 11:30 EDT) Sodium 142 136 - 145 mEq/L [facility] 11/16/2004 11:3 0 EDT 11/16/2004 12:18 EDT us Jodi Parr MD CHEMISTRY & BLOOD GAS ORDERABLE S Final Result [facility] [address] [place] [address] * SODIUM (11/16/2004 3:45 EDT) Sodium 136 136 - 145 mEq/L [facility] 11/16/2004 3:45 EDT 11/16/2004 3:52 EDT us Jodi Parr MD CHEMISTRY & BLOOD GAS ORDERABLE S Final Result [facility] [address] [place] [address] * SODIUM (11/15/2004 19:45 EDT) Sodium 139 136 - 145 mEq/L [facility] 11/15/2004 19:4 5 EDT 11/15/2004 20:00 EDT us Jodi Parr MD CHEMISTRY & BLOOD GAS ORDERABLE S Final Result Performing Organization Address [facility]IP [facility] de Phone Number [facility] [address] [place] [address] * SODIUM (11/15/2004 12:00 EDT) Sodium 141 136 - 145 mEq/L [facility] 11/15/2004 12:0 0 EDT 11/15/2004 12:42 EDT us Jodi Parr MD CHEMISTRY & BLOOD GAS ORDERABLE S Final Result Performing Organization Address [facility] de Phone Number [facility] [address] [place] [address] * SODIUM (11/15/2004 4:45 EDT) Sodium 141 136 - 145 mEq/L [facility] 11/15/2004 4:45 EDT 11/15/2004 5:07 EDT us Jodi Parr MD CHEMISTRY & BLOOD GAS ORDERABLE S Final Result Performing Organization Address [facility]IP [facility] de Phone Number [facility] [address] [place] [address] * SODIUM (11/14/2004 20:00 EDT) Sodium 144 136 - 145 mEq/L [facility] 11/14/2004 20:0 0 EDT 11/14/2004 20:20 EDT us Jodi Parr MD CHEMISTRY & BLOOD GAS ORDERABLE S Final Result Performing Organization Address [facility]/State/ZIP Co de Phone Number [facility] [address] [place] [address] * SODIUM (11/14/2004 11:35 EDT) Sodium 141 136 - 145 mEq/L [facility] 11/14/2004 11:3 5 EDT 11/14/2004 12:32 EDT us Jodi Parr MD CHEMISTRY & BLOOD GAS ORDERABLE S Final Result Performing Organization Address [facility] de Phone Number [facility] [address] [place] [address] * SODIUM (11/14/2004 4:00 EDT) Sodium 140 136 - 145 mEq/L [facility] Comment:Heparinized plasma. 11/14/2004 4:00 EDT 11/14/2004 4:32 EDT us Jodi Parr MD CHEMISTRY & BLOOD GAS ORDERABLE S Final Result Performing Organization Address [facility] de Phone Number [facility] [address] [place] [address] * SODIUM (11/13/2004 20:00 EDT) Sodium 142 136 - 145 mEq/L [facility] 11/13/2004 20:0 0 EDT 11/13/2004 20:59 EDT us Jodi Parr MD CHEMISTRY & BLOOD GAS ORDERABLE S Final Result Performing Organization Address [facility] de Phone Number [facility] [address] [place] [address] * SODIUM (11/13/2004 20:00 EDT) Sodium 136 - 145 mEq/L [facility] 11/13/2004 20:0 0 EDT 11/20/2004 12:48 EDT us Jodi Parr MD CHEMISTRY & BLOOD GAS ORDERABLE S Final Result [facility] [address] [place] [address] * SODIUM (11/13/2004 11:55 EDT) Sodium 141 136 - 145 mEq/L [facility] 11/13/2004 11:5 5 EDT 11/13/2004 12:31 EDT us Jodi Parr MD CHEMISTRY & BLOOD GAS ORDERABLE S Final Result Performing Organization Address [facility] de Phone Number [facility] [address] [place] [address] * SODIUM (11/13/2004 4:02 EDT) Sodium 141 136 - 145 mEq/L [facility] 11/13/2004 4:02 EDT 11/13/2004 4:03 EDT us Jodi Parr MD CHEMISTRY & BLOOD GAS ORDERABLE S Final Result Performing Organization Address [facility] de Phone Number [facility] [address] [place] [address] * SODIUM (11/12/2004 19:50 EDT) Sodium 140 136 - 145 mEq/L [facility] 11/12/2004 19:5 0 EDT 11/12/2004 21:02 EDT us Jodi Parr MD CHEMISTRY & BLOOD GAS ORDERABLE S Final Result Performing Organization Address [facility] de Phone Number [facility] [address] [place] [address] * PHOSPHORUS (11/12/2004 11:55 EDT) Phosphorus 4.9 2.9 - 5.4 mg/dl [facility] Comment:Heparinized plasma. 11/12/2004 11:5 5 EDT 11/12/2004 12:09 EDT Jodi Parr MD CHEMISTRY & BLOOD GAS ORDERABLE S Final Result Performing Organization Address [facility] de Phone Number [facility] [address] [place] [address] * PREALBUMIN (11/12/2004 11:55 EDT) Prealbumin 38 mg/dl [facility] 11/12/2004 11:5 5 EDT 11/12/2004 12:09 EDT us Jodi Parr MD CHEMISTRY & BLOOD GAS ORDERABLE S Final Result Performing Organization Address [facility] de Phone Number [facility] [address] [place] [address] * SODIUM (11/12/2004 11:55 EDT) Sodium 138 136 - 145 mEq/L [facility] Comment:Heparinized plasma. 11/12/2004 11:5 5 EDT 11/12/2004 12:09 EDT us Jodi Parr MD CHEMISTRY & BLOOD GAS ORDERABLE S Final Result Performing Organization Address [facility] de Phone Number [facility] [address] [place] [address] * MAGNESIUM (11/12/2004 11:55 EDT) Magnesium 2.1 1.7 - 2.8 mg/dl [facility] Comment:Heparinized plasma. 11/12/2004 11:5 5 EDT 11/12/2004 12:09 EDT us Jodi Parr MD CHEMISTRY & BLOOD GAS ORDERABLE S Final Result Performing Organization Address [facility] de Phone Number [facility] [address] [place] [address] * PHOSPHORUS (11/12/2004 4:00 EDT) Phosphorus 4.9 2.9 - 5.4 mg/dl [facility] 11/12/2004 4:00 EDT 11/12/2004 4:07 EDT us Jodi Parr MD CHEMISTRY & BLOOD GAS ORDERABLE S Final Result Performing Organization Address [facility] de Phone Number [facility] [address] [place] [address] * SODIUM (11/12/2004 4:00 EDT) Sodium 136 136 - 145 mEq/L [facility] 11/12/2004 4:00 EDT 11/12/2004 4:07 EDT us Jodi Parr MD CHEMISTRY & BLOOD GAS ORDERABLE S Final Result Performing Organization Address [facility] de Phone Number [facility] [address] [place] [address] * MAGNESIUM (11/12/2004 4:00 EDT) Magnesium 2.0 1.7 - 2.8 mg/dl [facility] 11/12/2004 4:00 EDT 11/12/2004 4:07 EDT us Jodi Parr MD CHEMISTRY & BLOOD GAS ORDERABLE S Final Result Performing Organization Address [facility] de Phone Number [facility] [address] [place] [address] * T4 FREE (11/12/2004 4:00 EDT) Free T4 0.8 0.8 - 1.8 ng/dl [facility] 11/12/2004 4:00 EDT 11/12/2004 4:07 EDT Jodi Parr MD CHEMISTRY & BLOOD GAS ORDERABLE S Final Result Performing Organization Address [facility]/ZIP Co de Phone Number [facility] [address] [place] [address] * CALCIUM (11/12/2004 4:00 EDT) Calcium 9.3 8.5 - 10.5 mg/dl [facility] Calculated Calcium 9.6 8.5 - 10.5 mg/dl [facility] 11/12/2004 4:00 EDT 11/12/2004 4:07 EDT us Jodi Parr MD CHEMISTRY & BLOOD GAS ORDERABLE S Final Result Performing Organization Address [facility] de Phone Number [facility] [address] [place] [address] * ALBUMIN (11/12/2004 4:00 EDT) Albumin 4.1 3.0 - 5.5 g/dl [facility] 11/12/2004 4:00 EDT 11/12/2004 4:07 EDT us Jodi Parr MD CHEMISTRY & BLOOD GAS ORDERABLE S Final Result Performing Organization Address [facility] de Phone Number [facility] [address] [place] [address] * SODIUM (11/11/2004 20:08 EDT) Sodium 137 136 - 145 mEq/L [facility] 11/11/2004 20:0 8 EDT 11/11/2004 20:13 EDT us Jodi Parr MD CHEMISTRY & BLOOD GAS ORDERABLE S Final Result Performing Organization Address [facility] de Phone Number [facility] [address] [place] [address] * SODIUM (11/11/2004 12:00 EDT) Sodium 137 136 - 145 mEq/L [facility] 11/11/2004 12:0 0 EDT 11/11/2004 12:28 EDT us Jodi Parr MD CHEMISTRY & BLOOD GAS ORDERABLE S Final Result Performing Organization Address [facility] de Phone Number [facility] [address] [place] [address] * (ABNORMAL) SODIUM (11/11/2004 4:00 EDT) Sodium 132(L) 136 - 145 mEq/L [facility] 11/11/2004 4:00 EDT 11/11/2004 4:08 EDT us Jodi Parr MD CHEMISTRY & BLOOD GAS ORDERABLE S Final Result Performing Organization Address [facility] de Phone Number [facility] [address] [place] [address] * (ABNORMAL) SODIUM (11/10/2004 20:45 EDT) Sodium 132(L) 136 - 145 mEq/L [facility] 11/10/2004 20:4 5 EDT 11/10/2004 20:54 EDT us Jodi Parr MD CHEMISTRY & BLOOD GAS ORDERABLE S Final Result Performing Organization Address [facility] de Phone Number [facility] [address] [place] [address] * SODIUM (11/10/2004 11:55 EDT) Sodium 137 136 - 145 mEq/L [facility] 11/10/2004 11:5 5 EDT 11/10/2004 12:53 EDT us Jodi Parr MD CHEMISTRY & BLOOD GAS ORDERABLE S Final Result Performing Organization Address [facility] de Phone Number [facility] [address] [place] [address] * (ABNORMAL) SODIUM (11/10/2004 3:45 EDT) Sodium 132(L) 136 - 145 mEq/L [facility] 11/10/2004 3:45 EDT 11/10/2004 4:11 EDT us Jodi Parr MD CHEMISTRY & BLOOD GAS ORDERABLE S Final Result Performing Organization Address [facility] de Phone Number [facility] [address] [place] [address] * SODIUM (11/09/2004 20:00 EDT) Sodium 136 136 - 145 mEq/L [facility] Comment:Heparinized plasma. 11/09/2004 20:0 0 EDT 11/09/2004 20:25 EDT us Hilton Álvarez MD CHEMISTRY & BLOOD GAS ORDE RABLES Final Result Performing Organization Address [facility] Phone Number [facility] [address] [place] [address] * SODIUM (11/09/2004 13:20 EDT) Sodium 136 136 - 145 mEq/L [facility] Comment:Heparinized plasma. 11/09/2004 13:2 0 EDT 11/09/2004 13:39 EDT us Jodi Parr MD CHEMISTRY & BLOOD GAS ORDERABLE S Final Result Performing Organization Address [facility] de Phone Number [facility] [address] [place] [address] * (ABNORMAL) SODIUM (11/09/2004 4:20 EDT) Sodium 132(L) 136 - 145 mEq/L [facility] Comment:Heparinized plasma. 11/09/2004 4:20 EDT 11/09/2004 5:00 EDT us Hilton Álvarez MD CHEMISTRY & BLOOD GAS ORDE RABLES Final Result [facility] [address] [place] [address] * (ABNORMAL) SODIUM (11/08/2004 19:55 EDT) Sodium 133(L) 136 - 145 mEq/L [facility] 11/08/2004 19:5 5 EDT 11/08/2004 20:26 EDT us Hilton Álvarez MD CHEMISTRY & BLOOD GAS HREMES HANNON Final Result [facility] [address] [place] [address] * (ABNORMAL) SODIUM (11/08/2004 17:00 EDT) Sodium 133(L) 136 - 145 mEq/L [facility] 11/08/2004 17:0 0 EDT 11/08/2004 17:23 EDT us Jodi Parr MD CHEMISTRY & BLOOD GAS ORDERABLE S Final Result [facility] [address] [place] [address] * (ABNORMAL) SODIUM (11/08/2004 12:15 EDT) Sodium 131(L) 136 - 145 mEq/L [facility] 11/08/2004 12:1 5 EDT 11/08/2004 13:58 EDT us Hilton Álvarez MD CHEMISTRY & BLOOD GAS HERMES HANNON Final Result [facility] [address] [place] [address] * (ABNORMAL) SODIUM (11/08/2004 4:00 EDT) Sodium 135(L) 136 - 145 mEq/L [facility] 11/08/2004 4:00 EDT 11/08/2004 5:19 EDT us Hilton Álvarez MD CHEMISTRY & BLOOD GAS ORDE RABLES Final Result Performing Organization Address [facility]IP [facility] de Phone Number [facility] [address] [place] [address] * (ABNORMAL) SODIUM (11/07/2004 20:29 EDT) Sodium 135(L) 136 - 145 mEq/L [facility] Comment:Heparinized plasma. 11/07/2004 20:2 9 EDT 11/07/2004 20:30 EDT us Hilton Álvarez MD CHEMISTRY & BLOOD GAS ORDE RABLES Final Result Performing Organization Address [facility] de Phone Number [facility] [address] [place] [address] * (ABNORMAL) SODIUM (11/07/2004 12:24 EDT) Sodium 133(L) 136 - 145 mEq/L [facility] Comment:Heparinized plasma. 11/07/2004 12:2 4 EDT 11/07/2004 12:24 EDT us Hilton Álvarez MD CHEMISTRY & BLOOD GAS ORDE RABLES Final Result Performing Organization Address [facility] de Phone Number [facility] [address] [place] [address] * (ABNORMAL) SODIUM (11/07/2004 6:25 EDT) Sodium 133(L) 136 - 145 mEq/L [facility] 11/07/2004 6:25 EDT 11/07/2004 6:26 EDT us Hilton Álvarez MD CHEMISTRY & BLOOD GAS ORDE RABLES Final Result Performing Organization Address [facility]IP Co de Phone Number [facility] [address] [place] [address] * SODIUM (11/06/2004 22:00 EDT) Sodium 136 136 - 145 mEq/L [facility] 11/06/2004 22:0 0 EDT 11/06/2004 22:07 EDT Hilton Álvarez MD CHEMISTRY & BLOOD GAS ORDE RABLES Final Result Performing Organization Address [facility] de Phone Number [facility] [address] [place] [address] * SODIUM (11/06/2004 13:58 EDT) Sodium 138 136 - 145 mEq/L [facility] 11/06/2004 13:5 8 EDT 11/06/2004 13:58 EDT Hilton Álvarez MD CHEMISTRY & BLOOD GAS ORDE RABLES Final Result Performing Organization Address [facility] de Phone Number [facility] [address] [place] [address] * ELECTROLYTES (11/06/2004 9:56 EDT) Sodium 137 136 - 145 mEq/L [facility] Potassium 4.3 3.6 - 5.2 mEq/L [facility] Chloride 97 96 - 110 mEq/L [facility] CO2 30 24 - 32 mEq/L [facility] 11/06/2004 9:56 EDT 11/06/2004 9:56 EDT Hilton Álvarez MD CHEMISTRY & BLOOD GAS ORDE RABLES Final Result Performing Organization Address [facility] de Phone Number [facility] [address] [place] [address] * ELECTROLYTES (11/06/2004 3:22 EDT) Sodium 136 136 - 145 mEq/L [facility] Potassium 4.2 3.6 - 5.2 mEq/L [facility] Chloride 100 96 - 110 mEq/L [facility] CO2 30 24 - 32 mEq/L [facility] 11/06/2004 3:22 EDT 11/06/2004 3:22 EDT Hilton Álvarez MD CHEMISTRY & BLOOD GAS ORDE RABLES Final Result Performing Organization Address [facility] de Phone Number [facility] [address] [place] [address] * ELECTROLYTES (11/05/2004 20:50 EDT) Pathologist [facility] Sodium 137 136 - 145 mEq/L [facility] Potassium 4.2 3.6 - 5.2 mEq/L [facility] Chloride 101 96 - 110 mEq/L [facility] CO2 30 24 - 32 mEq/L [facility] 11/05/2004 20:5 0 EDT 11/05/2004 20:50 EDT Hilton Álvarez MD CHEMISTRY & BLOOD GAS [facility] Final Result Performing Organization Address [facility] de Phone Number [facility] [address] [place] [address] * CT HEAD W/WO CONTRAST (11/05/2004 19:02 [...] of hemorrhage identified. 5. Stable chronic pansinusitis. /perlav Hilton Álvarez MD IMG CT ORDERABLES Final Re sult * ELECTROLYTES (11/05/2004 12:30 EDT) Sodium 141 [...] ORDEmerald HANNON Final Result Performing Organization Address [facility] de Phone Number [facility] [address] [place] [address] * SODIUM (11/05/2004 4:34 EDT) Sodium 136 - 145 mEq/L [facility] 11/05/2004 4:34 EDT 11/05/2004 4:34 EDT Hilton Álvarez MD CHEMISTRY & BLOOD GAS ORDEmerald HANNON Final Result Performing Organization Address [facility] de Phone Number [facility] [address] [place] [address] * ELECTROLYTES (11/05/2004 4:34 EDT) Sodium 142 136 - 145 mEq/L [facility] Potassium 4.0 3.6 - 5.2 mEq/L [facility] Chloride 106 96 - 110 mEq/L [facility] CO2 29 24 - 32 mEq/L [facility] 11/05/2004 4:34 EDT 11/05/2004 4:34 EDT Hilton Álvarez MD CHEMISTRY & BLOOD GAS ORDE RIDDHI Final Result Performing Organization Address [facility] de Phone Number [facility] [address] [place] [address] * (ABNORMAL) T4 FREE (11/05/2004 4:34 EDT) Free T4 0.6(L) 0.8 - 1.8 ng/dl [facility] 11/05/2004 4:34 EDT 11/05/2004 4:34 EDT Hilton Álvarez MD CHEMISTRY & BLOOD GAS ORDEmerald HANNON Final Result Performing Organization Address [facility] de Phone Number [facility] [address] [place] [address] * (ABNORMAL) ELECTROLYTES (11/04/2004 22:06 EDT) Sodium 143 136 - 145 mEq/L [facility] Potassium 3.5(L) 3.6 - 5.2 mEq/L [facility] Chloride 106 96 - 110 mEq/L [facility] CO2 28 24 - 32 mEq/L [facility] 11/04/2004 22:0 6 EDT 11/04/2004 22:06 EDT us Hilton Álvarez MD CHEMISTRY & BLOOD GAS ORDE RABREBECA Final Result Performing Organization Address [facility]/State/ZIP Co de Phone Number [facility] [address] [place] [address] * ELECTROLYTES (11/04/2004 14:25 EDT) Sodium 143 136 - 145 mEq/L [facility] Potassium 4.2 3.6 - 5.2 mEq/L [facility] Chloride 107 96 - 110 mEq/L [facility] CO2 28 24 - 32 mEq/L [facility] 11/04/2004 14:2 5 EDT 11/04/2004 14:26 EDT Hilton Álvarez MD CHEMISTRY & BLOOD GAS ORDE RABLES Final Result Performing Organization Address [facility] de Phone Number [facility] [address] [place] [address] * SODIUM (11/04/2004 8:25 EDT) Sodium 142 136 - 145 mEq/L [facility] 11/04/2004 8:25 EDT 11/04/2004 8:38 EDT Hilton Álvarez MD CHEMISTRY & BLOOD GAS ORDE RABLES Final Result Performing Organization Address [facility] de Phone Number [facility] [address] [place] [address] * ELECTROLYTES (11/04/2004 4:15 EDT) Sodium 143 136 - 145 mEq/L [facility] Potassium 4.2 3.6 - 5.2 mEq/L [facility] Chloride 104 96 - 110 mEq/L [facility] CO2 28 24 - 32 mEq/L [facility] 11/04/2004 4:15 EDT 11/04/2004 4:15 EDT Hilton Álvarez MD CHEMISTRY & BLOOD GAS ORDE RABLES Final Result Performing Organization Address [facility] de Phone Number [facility] [address] [place] [address] * SODIUM (11/04/2004 0:31 EDT) Sodium 144 136 - 145 mEq/L [facility] 11/04/2004 0:31 EDT 11/04/2004 0:31 EDT Hilton Álvarez MD CHEMISTRY & BLOOD GAS ORDE RABLES Final Result Performing Organization Address [facility] de Phone Number [facility] [address] [place] [address] * ELECTROLYTES (11/03/2004 20:16 EDT) Sodium 144 136 - 145 mEq/L [facility] Potassium 3.8 3.6 - 5.2 mEq/L [facility] Chloride 104 96 - 110 mEq/L [facility] CO2 29 24 - 32 mEq/L [facility] 11/03/2004 20:1 6 EDT 11/03/2004 20:16 EDT us Hilton Álvarez MD CHEMISTRY & BLOOD GAS ORDE RABLES Final Result Performing Organization Address [facility] de Phone Number [facility] [address] [place] [address] * SODIUM (11/03/2004 16:15 EDT) Sodium 142 136 - 145 mEq/L [facility] 11/03/2004 16:1 5 EDT 11/03/2004 16:30 EDT us Hilton Álvarez MD CHEMISTRY & BLOOD GAS ORDE RABLES Final Result Performing Organization Address [facility] de Phone Number [facility] [address] [place] [address] * ELECTROLYTES (11/03/2004 12:21 EDT) Sodium 144 136 - 145 mEq/L [facility] Potassium 3.9 3.6 - 5.2 mEq/L [facility] Chloride 106 96 - 110 mEq/L [facility] CO2 28 24 - 32 mEq/L [facility] 11/03/2004 12:2 1 EDT 11/03/2004 12:21 EDT Hilton Álvarez MD CHEMISTRY & BLOOD GAS ORDE RABLES Final Result Performing Organization Address [facility] de Phone Number [facility] [address] [place] [address] * SODIUM (11/03/2004 9:30 EDT) Sodium 145 136 - 145 mEq/L [facility] Comment:Heparinized plasma. 11/03/2004 9:30 EDT 11/03/2004 9:32 EDT Hilton Álvarez MD CHEMISTRY & BLOOD GAS ORDE RABLES Final Result Performing Organization Address [facility] Phone Number [facility] [address] [place] [address] * ELECTROLYTES (11/03/2004 3:00 EDT) Sodium 142 [...] ORDE RABLES Final Result Performing Organization Address [facility] de Phone Number [facility] [address] [place] [address] * SODIUM (11/03/2004 0:14 EDT) Sodium 144 136 - 145 mEq/L [facility] Comment:Heparinized plasma. 11/03/2004 0:14 EDT 11/03/2004 0:14 EDT Hilton Álvarez MD CHEMISTRY & BLOOD GAS ORDE RABLES Final Result Performing Organization Address [facility] de Phone Number [facility] [address] [place] [address] * (ABNORMAL) ELECTROLYTES (11/02/2004 20:02 EDT) Sodium 146(H) 136 - 145 mEq/L [facility] Potassium 4.1 3.6 - 5.2 mEq/L [facility] Chloride 107 96 - 110 mEq/L [facility] CO2 30 24 - 32 mEq/L [facility] 11/02/2004 20:0 2 EDT 11/02/2004 20:02 EDT Hilton Álvarez MD CHEMISTRY & BLOOD GAS ORDE RIDDHI Final Result Performing Organization Address [facility] de Phone Number [facility] [address] [place] [address] * SODIUM (11/02/2004 16:34 EDT) Sodium 145 136 - 145 mEq/L [facility] 11/02/2004 16:3 4 EDT 11/02/2004 16:34 EDT Hilton Álvarez MD CHEMISTRY & BLOOD GAS ORDE RABLES Final Result Performing Organization Address [facility] de Phone Number [facility] [address] [place] [address] * (ABNORMAL) ELECTROLYTES (11/02/2004 12:32 EDT) Sodium 148(H) 136 - 145 mEq/L [facility] Comment:Heparinized plasma. Potassium 4.3 3.6 - 5.2 mEq/L [facility] Comment:Heparinized plasma. Chloride 108 96 - 110 mEq/L [facility] Comment:Heparinized plasma. CO2 30 24 - 32 mEq/L [facility] Comment:Heparinized plasma. 11/02/2004 12:3 2 EDT 11/02/2004 12:32 EDT Hilton Álvarez MD CHEMISTRY & BLOOD GAS ORDEmerald HANNON Final Result Performing Organization Address [facility] de Phone Number [facility] [address] [place] [address] * SODIUM (11/02/2004 8:39 EDT) Pathologist [facility] Sodium 141 136 - 145 mEq/L [facility] Comment:Heparinized plasma. 11/02/2004 8:39 EDT 11/02/2004 8:39 EDT Hilton Álvarez MD CHEMISTRY & BLOOD GAS ORDE RIDDHI Final Result Performing Organization Address [facility] de Phone Number [facility] [address] [place] [address] * (ABNORMAL) HEMAGRAM (11/02/2004 8:39 EDT) WBC 7.69 4.5 - 13.0 K/cmm [facility] RBC 3.14(L) 4.50 - 5.30 M/cmm [facility] Hemoglobin 9.0(L) 13.0 - 16.0 gm/dl [facility] HCT 26.4(L) 37.0 - 49.0 % [facility] MCV 84 78 - 98 fl [facility] MCH 28.7 pg [facility] MCHC 34.2 gm/dl [facility] PLT 275 156 - 312 K/cmm [facility] RDW-CV 16.7 % [facility] 11/02/2004 8:39 EDT 11/02/2004 8:39 EDT Hilton Álvarez MD HEMATOLOGY & PF4 ORDERABLE S Final Result Performing Organization Address [facility] de Phone Number [facility] [address] [place] [address] * BACTERIAL CULTURE, BLOOD (11/02/2004 5:45 EDT) Specimen Description Blood PICC Line [facility] Result No growth [facility] Report Status Final [id number] [facility] 11/02/2004 5:45 EDT 11/02/2004 5:45 EDT Hilton Álvarez MD MICROBIOLOGY - GENERAL ORD ERABLES Final Result [facility] [address] [place] [address] * BACTERIAL CULTURE, URINE (11/02/2004 5:43 EDT) Specimen Description Urine [facility] Result Greater than 100,000 CFU/ml STAPHYLOCOCCU S COAGULASE POSITIVE (STAPHYLOCOCC US AUREUS) [facility] Report Status Final [id number] [facility] 11/02/2004 5:43 EDT 11/02/2004 8:14 [...] Susceptible Susceptible Hilton Álvarez MD MICROBIOLOGY - GENERAL ORD ERABLES Final Result Performing Organization Address [facility]IP [facility] de Phone Number [facility] [address] [place] [address] * (ABNORMAL) UA WITH MICROSCOPIC (11/02/2004 5:43 EDT) Color, UA Yellow [facility] Clarity, UA Cloudy [facility] Glucose, UA Norm NORM [facility] Bilirubin, UA Neg NEG [facility] Ketones, UA Neg NEG [facility] Specific [place], Urine 1.015 1.005 - 1.02 [facility] Blood, UA Mod(A) NEG [facility] pH, UA 6.0 5.0 - 9.0 [facility] Protein, UA 1+(A) NEG [facility] Urobilinogen, UA Norm NORM mg/dL [facility] Nitrite, UA Pos(A) NEG [facility] Leuk Esterase Large(A) NEG [facility] WBC, UA Innum 0 - 5 /HPF [facility] RBC, UA 5 to 10 0 - 5 /HPF [facility] Squam Epithel, UA Microscopic field [...] ORDERABLES Jacquie l Result Performing Organization Address [facility]IP Co de Phone Number [facility] [address] [place] [address] * CULTURE IF UA POSITIVE (11/02/2004 5:43 EDT) Culture if Indicated Culture indicated by urinalysis results. [facility] 11/02/2004 5:43 EDT 11/02/2004 5:43 EDT Hilton Álvarez MD MICROBIOLOGY - GENERAL ORD ERABLES Final Result Performing Organization Address [facility] de Phone Number [facility] [address] [place] [address] * ELECTROLYTES (11/02/2004 4:10 EDT) Sodium 143 136 - 145 mEq/L [facility] Potassium 4.2 3.6 - 5.2 mEq/L [facility] Chloride 104 96 - 110 mEq/L [facility] CO2 31 24 - 32 mEq/L [facility] 11/02/2004 4:10 EDT 11/02/2004 4:10 EDT us Hilton Álvarez MD CHEMISTRY & BLOOD GAS ORDE RABLES Final Result Performing Organization Address [facility] de Phone Number [facility] [address] [place] [address] * SODIUM (11/02/2004 0:09 EDT) Sodium 143 136 - 145 mEq/L [facility] 11/02/2004 0:09 EDT 11/02/2004 0:09 EDT Hilton Álvarez MD CHEMISTRY & BLOOD GAS ORDE RABLES Final Result Performing Organization Address [facility] de Phone Number [facility] [address] [place] [address] * ELECTROLYTES (11/01/2004 20:00 EDT) Sodium 142 136 - 145 mEq/L [facility] Potassium 4.2 3.6 - 5.2 mEq/L [facility] Chloride 104 96 - 110 mEq/L [facility] CO2 27 24 - 32 mEq/L [facility] 11/01/2004 20:0 0 EDT 11/01/2004 20:30 EDT us Hilton Álvarez MD CHEMISTRY & BLOOD GAS ORDE RABLES Final Result Performing Organization Address [facility] de Phone Number [facility] [address] [place] [address] * SODIUM (11/01/2004 16:19 EDT) Sodium 142 136 - 145 mEq/L [facility] 11/01/2004 16:1 9 EDT 11/01/2004 16:19 EDT Hilton Álvarez MD CHEMISTRY & BLOOD GAS ORDE RABLES Final Result Performing Organization Address [facility] de Phone Number [facility] [address] [place] [address] * SODIUM (11/01/2004 12:28 EDT) Sodium 143 136 - 145 mEq/L [facility] Comment:Heparinized plasma. 11/01/2004 12:2 8 EDT 11/01/2004 12:28 EDT Hilton Álvarez MD CHEMISTRY & BLOOD GAS ORDE RABLES Final Result Performing Organization Address [facility] de Phone Number [facility] [address] [place] [address] * POTASSIUM (11/01/2004 12:28 EDT) Potassium 4.6 3.6 - 5.2 mEq/L [facility] Comment:Heparinized plasma. 11/01/2004 12:2 8 EDT 11/01/2004 12:28 EDT us Hilton Álvarez MD CHEMISTRY & BLOOD GAS ORDE RABLES Final Result Performing Organization Address [facility] de Phone Number [facility] [address] [place] [address] * CO2 (11/01/2004 12:28 EDT) CO2 26 24 - 32 mEq/L [facility] Comment:Heparinized plasma. 11/01/2004 12:2 8 EDT 11/01/2004 12:28 EDT us Hilton Álvarez MD CHEMISTRY & BLOOD GAS ORDE RABLES Final Result Performing Organization Address [facility] de Phone Number [facility] [address] [place] [address] * CHLORIDE (11/01/2004 12:28 EDT) Chloride 107 96 - 110 mEq/L [facility] Comment:Heparinized plasma. 11/01/2004 12:2 8 EDT 11/01/2004 12:28 EDT us Hilton Álvarez MD CHEMISTRY & BLOOD GAS ORDE RABLES Final Result Performing Organization Address [facility] de Phone Number [facility] [address] [place] [address] * TESTS ADDED BY PHONE (11/01/2004 12:28 EDT) Tests to be added STAT K,CL,CO2 [facility] 11/01/2004 12:2 8 EDT 11/01/2004 12:28 EDT us Hilton Álvarez MD CHEMISTRY & BLOOD GAS ORDE RABLES Final Result Performing Organization Address [facility] de Phone Number [facility] [address] [place] [address] * SODIUM (11/01/2004 8:26 EDT) Sodium 143 136 - 145 mEq/L [facility] Comment:Heparinized plasma. 11/01/2004 8:26 EDT 11/01/2004 8:26 EDT us Hilton Álvarez MD CHEMISTRY & BLOOD GAS ORDE RABLES Final Result Performing Organization Address [facility] de Phone Number [facility] [address] [place] [address] * PHENYTOIN (11/01/2004 4:18 EDT) Phenytoin 11.1 [...] ORDE RABLES Final Result Performing Organization Address [facility] Phone Number [facility] [address] [place] [address] * ELECTROLYTES (11/01/2004 4:18 EDT) Sodium 141 136 - 145 mEq/L [facility] Comment:Heparinized plasma. Potassium 4.4 3.6 - 5.2 mEq/L [facility] Comment:Heparinized plasma. Chloride 105 96 - 110 mEq/L [facility] Comment:Heparinized plasma. CO2 28 24 - 32 mEq/L [facility] Comment:Heparinized plasma. 11/01/2004 4:18 EDT 11/01/2004 4:18 EDT Hilton Álvarez MD CHEMISTRY & BLOOD GAS ORDE RABLES Final Result Performing Organization Address [facility] de Phone Number [facility] [address] [place] [address] * SODIUM (11/01/2004 2:27 EDT) Sodium 145 136 - 145 mEq/L [facility] Comment:Heparinized plasma. 11/01/2004 2:27 EDT 11/01/2004 2:27 EDT us Hilton Álvarez MD CHEMISTRY & BLOOD GAS ORDE RABLES Final Result Performing Organization Address [facility] de Phone Number [facility] [address] [place] [address] * ELECTROLYTES (11/01/2004 0:10 EDT) Sodium 143 136 - 145 mEq/L [facility] Potassium 4.1 3.6 - 5.2 mEq/L [facility] Chloride 103 96 - 110 mEq/L [facility] Comment:Sample retested, res ult confirmed CO2 29 24 - 32 mEq/L [facility] 11/01/2004 0:10 EDT 11/01/2004 0:10 EDT us Hilton Álvarez MD CHEMISTRY & BLOOD GAS ORDE RABLES Final Result Performing Organization Address [facility] de Phone Number [facility] [address] [place] [address] * SODIUM (10/31/2004 18:48 EDT) Sodium 137 136 - 145 mEq/L [facility] 10/31/2004 18:4 8 EDT 10/31/2004 18:48 EDT us Hilton Álvarez MD CHEMISTRY & BLOOD GAS ORDE RABLES Final Result Performing Organization Address [facility] de Phone Number [facility] [address] [place] [address] * (ABNORMAL) SODIUM (10/31/2004 16:29 EDT) Sodium 133(L) 136 - 145 mEq/L [facility] Comment:Heparinized plasma. 10/31/2004 16:2 9 EDT 10/31/2004 16:29 EDT us Hilton Álvarez MD CHEMISTRY & BLOOD GAS ORDE RABLES Final Result Performing Organization Address [facility] de Phone Number [facility] [address] [place] [address] * (ABNORMAL) ELECTROLYTES (10/31/2004 12:08 EDT) Sodium [...] ORDE RABREBECA Final Result Performing Organization Address [facility] Phone Number [facility] [address] [place] [address] * (ABNORMAL) SODIUM (10/31/2004 8:18 EDT) Sodium 130(L) 136 - 145 mEq/L [facility] 10/31/2004 8:18 EDT 10/31/2004 8:18 EDT Hilton Álvarez MD CHEMISTRY & BLOOD GAS ORDE RABREBECA Final Result Performing Organization Address [facility] de Phone Number [facility] [address] [place] [address] * OSMOLALITY, URINE (10/31/2004 6:28 EDT) Osmolality, Ur 723 MOS/KG [facility] 10/31/2004 6:28 EDT 10/31/2004 6:28 EDT us Hilton Álvarez MD URINALYSIS ORDERABLES Jacquie l Result Performing Organization Address [facility] de Phone Number [facility] [address] [place] [address] * SODIUM, URINE RANDOM (10/31/2004 6:28 EDT) Sodium, Ur 188.0 mEq/L [facility] 10/31/2004 6:28 EDT 10/31/2004 6:28 EDT Hilton Álvarez MD URINALYSIS ORDERABLES Jacquie l Result Performing Organization Address [facility] de Phone Number [facility] [address] [place] [address] * OSMOLALITY (10/31/2004 6:26 EDT) Pathologist [facility] Osmolality Cintia 280 MOS/KG [facility] 10/31/2004 6:26 EDT 10/31/2004 6:26 EDT Hilton Álvarez MD CHEMISTRY & BLOOD GAS ORDE RABREBECA Final Result Performing Organization Address [facility] de Phone Number [facility] [address] [place] [address] * (ABNORMAL) SODIUM (10/31/2004 6:26 EDT) Pathologist [facility] Sodium 128(L) 136 - 145 mEq/L [facility] 10/31/2004 6:26 EDT 10/31/2004 6:26 EDT Hilton Álvarez MD CHEMISTRY & BLOOD GAS ORDE RABREBECA Final Result Performing Organization Address [facility] de Phone Number [facility] [address] [place] [address] * (ABNORMAL) ELECTROLYTES (10/31/2004 4:18 EDT) Sodium 128(L) 136 - 145 mEq/L [facility] Potassium 4.3 3.6 - 5.2 mEq/L [facility] Chloride 91(L) 96 - 110 mEq/L [facility] CO2 28 24 - 32 mEq/L [facility] 10/31/2004 4:18 EDT 10/31/2004 4:18 EDT us Hilton Álvarez MD CHEMISTRY & BLOOD GAS [facility] Final Result Performing Organization Address [facility]/ZIP Co de Phone Number [facility] [address] [place] [address] * (ABNORMAL) HEMAGRAM AND DIFFERENTIAL (10/31/2004 4:18 [...] of Diff: Automated [facility] 10/31/2004 4:18 EDT 10/31/2004 4:18 EDT us Hilton Álvarez MD PACKAGES & DNA PROBE ORDER LYNDSEY Final Result Performing Organization Address [facility]ZIP Co de Phone Number [facility] [address] [place] [address] * (ABNORMAL) ELECTROLYTES (10/30/2004 20:33 EDT) Sodium 131(L) 136 - 145 mEq/L [facility] Potassium 4.3 3.6 - 5.2 mEq/L [facility] Chloride 94(L) 96 - 110 mEq/L [facility] CO2 29 24 - 32 mEq/L [facility] 10/30/2004 20:3 3 EDT 10/30/2004 20:33 EDT Hilton Álvarez MD CHEMISTRY & BLOOD GAS ORDE RABLES Final Result Performing Organization Address [facility]IP Co de Phone Number [facility] [address] [place] [address] * (ABNORMAL) SODIUM (10/30/2004 16:02 EDT) Sodium 133(L) 136 - 145 mEq/L [facility] 10/30/2004 16:0 2 EDT 10/30/2004 16:02 EDT Hilton Álvarez MD CHEMISTRY & BLOOD GAS ORDE RABLES Final Result Performing Organization Address [facility] de Phone Number [facility] [address] [place] [address] * (ABNORMAL) ELECTROLYTES (10/30/2004 12:09 EDT) Sodium 133(L) 136 - 145 mEq/L [facility] Potassium 3.8 3.6 - 5.2 mEq/L [facility] Chloride 95(L) 96 - 110 mEq/L [facility] CO2 28 24 - 32 mEq/L [facility] 10/30/2004 12:0 9 EDT 10/30/2004 12:09 EDT Hilton Álvarez MD CHEMISTRY & BLOOD GAS ORDE RABLES Final Result Performing Organization Address [facility] de Phone Number [facility] [address] [place] [address] * (ABNORMAL) SODIUM (10/30/2004 10:28 EDT) Sodium 132(L) 136 - 145 mEq/L [facility] 10/30/2004 10:2 8 EDT 10/30/2004 10:28 EDT Hilton Álvarez MD CHEMISTRY & BLOOD GAS ORDE RABLES Final Result Performing Organization Address [facility] de Phone Number [facility] [address] [place] [address] * PHENYTOIN (10/30/2004 4:13 EDT) Phenytoin 13.3 [...] ORDE RABLES Final Result Performing Organization Address [facility] de Phone Number [facility] [address] [place] [address] * (ABNORMAL) ELECTROLYTES (10/30/2004 4:13 EDT) Sodium 132(L) 136 - 145 mEq/L [facility] Potassium 4.4 3.6 - 5.2 mEq/L [facility] Chloride 97 96 - 110 mEq/L [facility] CO2 27 24 - 32 mEq/L [facility] 10/30/2004 4:13 EDT 10/30/2004 4:13 EDT Hilton Álvarez MD CHEMISTRY & BLOOD GAS ORDE RABLES Final Result Performing Organization Address [facility] de Phone Number [facility] [address] [place] [address] * (ABNORMAL) HEMAGRAM AND DIFFERENTIAL (10/30/2004 4:13 [...] of Diff: Automated [facility] 10/30/2004 4:13 EDT 10/30/2004 4:13 EDT us Hilton Álvarez MD PACKAGES & DNA PROBE ORDER LYNDSEY Final Result [facility] [address] [place] [address] * (ABNORMAL) ELECTROLYTES (10/30/2004 0:11 EDT) Sodium 135(L) 136 - 145 mEq/L [facility] Potassium 3.7 3.6 - 5.2 mEq/L [facility] Chloride 97 96 - 110 mEq/L [facility] CO2 28 24 - 32 mEq/L [facility] 10/30/2004 0:11 EDT 10/30/2004 0:11 EDT Hilton Álvarez MD CHEMISTRY & BLOOD GAS ORDE RABLES Final Result Performing Organization Address [facility] de Phone Number [facility] [address] [place] [address] * (ABNORMAL) SODIUM (10/30/2004 0:04 EDT) Sodium 131(L) 136 - 145 mEq/L [facility] 10/30/2004 0:04 EDT 10/31/2004 0:04 EDT Hilton Álvarez MD CHEMISTRY & BLOOD GAS ORDE RABLES Final Result Performing Organization Address [facility] de Phone Number [facility] [address] [place] [address] * (ABNORMAL) SODIUM (10/29/2004 22:00 EDT) Sodium 135(L) 136 - 145 mEq/L [facility] 10/29/2004 22:0 0 EDT 10/29/2004 22:00 EDT Hilton Álvarez MD CHEMISTRY & BLOOD GAS ORDE RABLES Final Result Performing Organization Address [facility] Phone Number [facility] [address] [place] [address] * (ABNORMAL) ELECTROLYTES (10/29/2004 18:14 EDT) Sodium 134(L) 136 - 145 mEq/L [facility] Potassium 5.0 3.6 - 5.2 mEq/L [facility] Chloride 99 96 - 110 mEq/L [facility] CO2 27 24 - 32 mEq/L [facility] 10/29/2004 18:1 4 EDT 10/29/2004 18:14 EDT Hilton Álvarez MD CHEMISTRY & BLOOD GAS ORDE RABLES Final Result Performing Organization Address [facility] de Phone Number [facility] [address] [place] [address] * (ABNORMAL) ELECTROLYTES (10/29/2004 16:19 EDT) Sodium [...] ORDE RABLES Final Result Performing Organization Address [facility] de Phone Number [facility] [address] [place] [address] * (ABNORMAL) SODIUM (10/29/2004 12:59 EDT) Sodium 132(L) 136 - 145 mEq/L [facility] Comment:Heparinized plasma. 10/29/2004 12:5 9 EDT 10/29/2004 12:59 EDT Hilton Álvarez MD CHEMISTRY & BLOOD GAS ORDE RABLES Final Result Performing Organization Address [facility] de Phone Number [facility] [address] [place] [address] * (ABNORMAL) ELECTROLYTES (10/29/2004 8:16 EDT) Sodium 135(L) 136 - 145 mEq/L [facility] Potassium 4.2 3.6 - 5.2 mEq/L [facility] Chloride 98 96 - 110 mEq/L [facility] CO2 30 24 - 32 mEq/L [facility] 10/29/2004 8:16 EDT 10/29/2004 8:16 EDT Hilton Álvarez MD CHEMISTRY & BLOOD GAS ORDE RABREBECA Final Result [facility] [address] [place] [address] * (ABNORMAL) SODIUM (10/29/2004 4:11 EDT) Pathologist [facility] Sodium 135(L) 136 - 145 mEq/L [facility] 10/29/2004 4:11 EDT 10/29/2004 4:11 EDT Hilton Álvarez MD CHEMISTRY & BLOOD GAS ORDE RABLES Final Result Performing Organization Address [facility] de Phone Number [facility] [address] [place] [address] * (ABNORMAL) T4 FREE (10/29/2004 4:11 EDT) Free T4 0.5(L) 0.8 - 1.8 ng/dl [facility] 10/29/2004 4:11 EDT 10/29/2004 4:11 EDT Hilton Álvarez MD CHEMISTRY & BLOOD GAS ORDE RABLES Final Result Performing Organization Address [facility] de Phone Number [facility] [address] [place] [address] * (ABNORMAL) HEMAGRAM AND DIFFERENTIAL (10/29/2004 4:11 EDT) WBC 7.66 4.5 - 13.0 K/cmm [facility] RBC 3.14(L) 4.50 - 5.30 M/cmm [facility] Hemoglobin 8.9(L) 13.0 - 16.0 gm/dl [facility] HCT 26.3(L) 37.0 - 49.0 % [facility] MCV 84 78 - 98 fl [facility] MCH 28.3 pg [facility] MCHC 33.8 gm/dl [facility] PLT 264 156 - 312 K/cmm [facility] RDW-CV 15.7 % [facility] [...] ORDER LYNDSEY Final Result Performing Organization Address [facility] de Phone Number [facility] [address] [place] [address] * SODIUM (10/29/2004 4:00 EDT) Sodium 136 - 145 mEq/L [facility] 10/29/2004 4:00 EDT 11/12/2004 7:24 EDT Hilton Álvarez MD CHEMISTRY & BLOOD GAS ORDE RABREBECA Final Result Performing Organization Address [facility] de Phone Number [facility] [address] [place] [address] * ELECTROLYTES (10/29/2004 0:06 EDT) Sodium 136 136 - 145 mEq/L [facility] Potassium 4.6 3.6 - 5.2 mEq/L [facility] Chloride 98 96 - 110 mEq/L [facility] CO2 31 24 - 32 mEq/L [facility] 10/29/2004 0:06 EDT 10/29/2004 0:06 EDT Hilton Álvarez MD CHEMISTRY & BLOOD GAS ORDE RABLES Final Result Performing Organization Address [facility] de Phone Number [facility] [address] [place] [address] * SODIUM (10/28/2004 20:20 EDT) Sodium 136 136 - 145 mEq/L [facility] 10/28/2004 20:2 0 EDT 10/28/2004 20:25 EDT Hilton Álvarez MD CHEMISTRY & BLOOD GAS ORDE RABREBECA Final Result Performing Organization Address [facility] de Phone Number [facility] [address] [place] [address] * ELECTROLYTES (10/28/2004 16:32 EDT) Sodium 136 136 - 145 mEq/L [facility] Potassium 4.1 3.6 - 5.2 mEq/L [facility] Chloride 100 96 - 110 mEq/L [facility] CO2 27 24 - 32 mEq/L [facility] 10/28/2004 16:3 2 EDT 10/28/2004 16:37 EDT Hilton Álvarez MD CHEMISTRY & BLOOD GAS ELEAZARE RABLES Final Result Performing Organization Address [facility] de Phone Number [facility] [address] [place] [address] * SODIUM (10/28/2004 12:21 EDT) Sodium 136 136 - 145 mEq/L [facility] Comment:Heparinized plasma. 10/28/2004 12:2 1 EDT 10/28/2004 12:21 EDT Hilton Álvarez MD CHEMISTRY & BLOOD GAS ORDE RABREBECA Final Result Performing Organization Address [facility] de Phone Number [facility] [address] [place] [address] * (ABNORMAL) ELECTROLYTES (10/28/2004 8:53 EDT) Sodium [...] Álvarez MD CHEMISTRY & BLOOD GAS ORDE [facility] Final Result Performing Organization Address [facility] de Phone Number [facility] [address] [place] [address] * PHENYTOIN (10/28/2004 4:41 EDT) Phenytoin 7.0 ug/ml [facility] Calculated Phenytoin 9.7 ug/ml [facility] Comment: Calculated phenytoin is adjusted for albumin level. Phenytoin levels may be further altered by severe renal failure (CrCl<10 ml/min). Consult pharmacy for renal or therapeutic dosing questions. 10/28/2004 4:41 EDT 10/28/2004 4:41 EDT Hilton Álvarez MD CHEMISTRY & BLOOD GAS ORDE [facility] Final Result Performing Organization Address [facility] de Phone Number [facility] [address] [place] [address] * ELECTROLYTES (10/28/2004 4:41 EDT) Sodium 139 136 - 145 mEq/L [facility] Potassium 4.2 3.6 - 5.2 mEq/L [facility] Chloride 99 96 - 110 mEq/L [facility] CO2 25 24 - 32 mEq/L [facility] 10/28/2004 4:41 EDT 10/28/2004 4:41 EDT Hilton Álvarez MD CHEMISTRY & BLOOD GAS ORDE [facility] Final Result [facility] [address] [place] [address] * (ABNORMAL) CREATININE (10/28/2004 4:41 EDT) Pathologist [facility] Creatinine 0.5(L) 0.6 - 1.2 mg/dl [facility] 10/28/2004 4:41 EDT 10/28/2004 4:41 EDT us Hilton Álvarez MD HISTORICAL LAB FOR SQ LOAD Final Result Performing Organization Address [facility] de Phone Number [facility] [address] [place] [address] * (ABNORMAL) HEMAGRAM AND DIFFERENTIAL (10/28/2004 4:41 EDT) [facility] WBC 8.20 4.5 - 13.0 K/cmm [facility] [...] [facility] Neutrophils 3.94 K/cmm [facility] Bands 0.08 K/cmm [facility] ABS Lymphs 2.46 K/cmm [facility] ABS Monocytes 1.23 K/cmm [facility] Basophils 0.16 K/cmm [facility] ABS Metamyelocytes 0.33 K/cmm [facility] RBC Morphology 1+ Anisocytosis 1+ Baso. stippling 1+ Microcytes 1+ Poikilocytosis 1+ Polychromasia [facility] Type of Diff: Manual [facility] 10/28/2004 4:41 EDT 10/28/2004 4:41 EDT Hilton Álvarez MD PACKAGES & DNA PROBE ORDER LYNDSEY Final Result Performing Organization Address [facility] de Phone Number [facility] [address] [place] [address] * BUN (10/28/2004 4:41 EDT) BUN 17 8 - 21 mg/dl [facility] 10/28/2004 4:41 EDT 10/28/2004 4:41 EDT Hilton Álvarez MD CHEMISTRY & BLOOD GAS ORDE [facility] Final Result Performing Organization Address [facility] Phone Number [facility] [address] [place] [address] * (ABNORMAL) ELECTROLYTES (10/28/2004 0:20 EDT) Sodium 134(L) 136 - 145 mEq/L [facility] Potassium 4.8 3.6 - 5.2 mEq/L [facility] Chloride 98 96 - 110 mEq/L [facility] CO2 29 24 - 32 mEq/L [facility] 10/28/2004 0:20 EDT 10/28/2004 0:42 EDT Hilton Álvarez MD CHEMISTRY & BLOOD GAS ORDE [facility] Final Result Performing Organization Address [facility] de Phone Number [facility] [address] [place] [address] * SODIUM (10/27/2004 20:52 EDT) Sodium 136 136 - 145 mEq/L [facility] Comment:Heparinized plasma. 10/27/2004 20:5 2 EDT 10/27/2004 20:52 EDT Hilton Álvarez MD CHEMISTRY & BLOOD GAS ORDE [facility] Final Result Performing Organization Address [facility] de Phone Number [facility] [address] [place] [address] * ELECTROLYTES (10/27/2004 16:02 EDT) Sodium 136 [...] ORDE RABLES Final Result Performing Organization Address [facility] de Phone Number [facility] [address] [place] [address] * (ABNORMAL) SODIUM (10/27/2004 12:49 EDT) Sodium 135(L) 136 - 145 mEq/L [facility] 10/27/2004 12:4 9 EDT 10/27/2004 12:49 EDT Hilton Álvarez MD CHEMISTRY & BLOOD GAS ORDE RABLES Final Result Performing Organization Address [facility] de Phone Number [facility] [address] [place] [address] * (ABNORMAL) ELECTROLYTES (10/27/2004 8:21 EDT) Sodium 137 136 - 145 mEq/L [facility] Potassium 3.4(L) 3.6 - 5.2 mEq/L [facility] Chloride 112(H) 96 - 110 mEq/L [facility] CO2 21(L) 24 - 32 mEq/L [facility] 10/27/2004 8:21 EDT 10/27/2004 8:21 EDT Hilton Álvarez MD CHEMISTRY & BLOOD GAS ORDE RABLES Final Result Performing Organization Address [facility] de Phone Number [facility] [address] [place] [address] * PHENYTOIN (10/27/2004 4:18 EDT) Phenytoin 10.6 [...] ORDE RABLES Final Result Performing Organization Address [facility] de Phone Number [facility] [address] [place] [address] * SODIUM (10/27/2004 4:18 EDT) Pathologist [facility] Sodium 137 136 - 145 mEq/L [facility] 10/27/2004 4:18 EDT 10/27/2004 4:18 EDT Hilton Álvarez MD CHEMISTRY & BLOOD GAS ORDE RABLES Final Result Performing Organization Address [facility] de Phone Number [facility] [address] [place] [address] * (ABNORMAL) CREATININE (10/27/2004 4:18 EDT) Creatinine 0.5(L) 0.6 - 1.2 mg/dl [facility] 10/27/2004 4:18 EDT 10/27/2004 4:18 EDT Hilton Álvarez MD HISTORICAL LAB FOR SQ LOAD Final Result [facility] [address] [place] [address] * (ABNORMAL) HEMAGRAM AND DIFFERENTIAL (10/27/2004 4:18 EDT) WBC 8.04 4.5 - 13.0 K/cmm [facility] RBC 3.24(L) 4.50 - 5.30 M/cmm [facility] Hemoglobin 9.1(L) 13.0 - 16.0 gm/dl [facility] HCT 27.2(L) 37.0 - 49.0 % [facility] MCV 84 78 - 98 fl [facility] MCH 28.0 pg [facility] MCHC 33.3 gm/dl [facility] PLT 293 156 - 312 K/cmm [facility] RDW-CV 16.5 % [facility] Neutrophils 65.0 % [facility] Lymphocytes 17.0 % [facility] Monocytes 6.0 % [facility] Eosinophils 4.0 % [facility] Basophils 1.0 % [facility] % Metamyelocytes 6.0 % [facility] % Myelocytes 1.0 % [facility] ABS Neutrophils 5.23 K/cmm [facility] ABS Lymphs 1.37 K/cmm [facility] ABS Monocytes 0.48 K/cmm [facility] ABS Eosinophils 0.32 K/cmm [facility] ABS Basophils 0.08 K/cmm [facility] ABS Metamyelocytes 0.48 K/cmm [facility] ABS Myelocytes 0.08 K/cmm FLETEA [facility] RBC Morphology 1+ Anisocytosis 1+ Poikilocytosis 1+ Polychromasia 1+ Ovalocytes 1+ Teardrop cells [facility] WBC Morphology 1+ Smudge cells [facility] Type of Diff: Manual [facility] 10/27/2004 4:18 EDT 10/27/2004 4:18 EDT Hilton Álvarez MD PACKAGES & DNA PROBE ORDER LYNDSEY Final Result [facility] [address] [place] [address] * BUN (10/27/2004 4:18 EDT) BUN 13 8 - 21 mg/dl [facility] 10/27/2004 4:18 EDT 10/27/2004 4:18 EDT us Hilton Álvarez MD CHEMISTRY & BLOOD GAS ORDE RABLES Final Result Performing Organization Address [facility] de Phone Number [facility] [address] [place] [address] * ELECTROLYTES (10/27/2004 2:28 EDT) Sodium 136 136 - 145 mEq/L [facility] Potassium 4.6 3.6 - 5.2 mEq/L [facility] Chloride 101 96 - 110 mEq/L [facility] CO2 28 24 - 32 mEq/L [facility] 10/27/2004 2:28 EDT 10/27/2004 2:28 EDT us Hilton Álvarez MD CHEMISTRY & BLOOD GAS ORDE RABLES Final Result Performing Organization Address [facility] de Phone Number [facility] [address] [place] [address] * SODIUM (10/26/2004 20:40 EDT) Sodium 138 136 - 145 mEq/L [facility] 10/26/2004 20:4 0 EDT 10/26/2004 20:52 EDT us Hilton Álvarez MD CHEMISTRY & BLOOD GAS ORDE RABLES Final Result Performing Organization Address [facility]IP [facility] de Phone Number [facility] [address] [place] [address] * ELECTROLYTES (10/26/2004 16:01 EDT) Sodium 137 136 - 145 mEq/L [facility] Potassium 4.2 3.6 - 5.2 mEq/L [facility] Chloride 104 96 - 110 mEq/L [facility] CO2 27 24 - 32 mEq/L [facility] 10/26/2004 16:0 1 EDT 10/26/2004 16:01 EDT Hilton Álvarez MD CHEMISTRY & BLOOD GAS ORDE RABLES Final Result Performing Organization Address [facility] de Phone Number [facility] [address] [place] [address] * SODIUM (10/26/2004 12:39 EDT) Sodium 138 136 - 145 mEq/L [facility] Comment:Heparinized plasma. 10/26/2004 12:3 9 EDT 10/26/2004 12:39 EDT Hilton Álvarez MD CHEMISTRY & BLOOD GAS ORDE RABLES Final Result Performing Organization Address [facility] de Phone Number [facility] [address] [place] [address] * MAGNESIUM (10/26/2004 8:05 EDT) Magnesium 2.4 1.7 - 2.8 mg/dl [facility] Comment:Heparinized plasma. 10/26/2004 8:05 EDT 10/26/2004 8:05 EDT Hilton Álvarez MD CHEMISTRY & BLOOD GAS ORDE RABLES Final Result Performing Organization Address [facility] de Phone Number [facility] [address] [place] [address] * ELECTROLYTES (10/26/2004 8:05 EDT) Sodium 138 136 - 145 mEq/L [facility] Comment:Heparinized plasma. Potassium 4.1 3.6 - 5.2 mEq/L [facility] Comment:Heparinized plasma. Chloride 102 96 - 110 mEq/L [facility] Comment:Heparinized plasma. CO2 28 24 - 32 mEq/L [facility] Comment:Heparinized plasma. 10/26/2004 8:05 EDT 10/26/2004 8:05 EDT Hilton Álvarez MD CHEMISTRY & BLOOD GAS ORDE [facility] Final Result Performing Organization Address [facility] de Phone Number [facility] [address] [place] [address] * PHENYTOIN (10/26/2004 3:53 EDT) Phenytoin 13.6 [...] ORDE RIDDHI Final Result Performing Organization Address [facility] Phone Number [facility] [address] [place] [address] * (ABNORMAL) SODIUM (10/26/2004 3:53 EDT) Sodium 134(L) 136 - 145 mEq/L [facility] Comment:Heparinized plasma. 10/26/2004 3:53 EDT 10/26/2004 3:53 EDT Hilton Álvarez MD CHEMISTRY & BLOOD GAS ORDE RABLES Final Result Performing Organization Address [facility] de Phone Number [facility] [address] [place] [address] * (ABNORMAL) CREATININE (10/26/2004 3:53 EDT) Creatinine 0.5(L) 0.6 - 1.2 mg/dl [facility] Comment:Heparinized plasma. 10/26/2004 3:53 EDT 10/26/2004 3:53 EDT us Hilton Álvarez MD HISTORICAL LAB FOR SQ LOAD Final Result Performing Organization Address [facility] de Phone Number [facility] [address] [place] [address] * (ABNORMAL) HEMAGRAM AND DIFFERENTIAL (10/26/2004 3:53 EDT) Pathologist [facility] WBC 12.68 4.5 - 13.0 K/cmm [facility] [...] [facility] 10/26/2004 3:53 EDT 10/26/2004 3:53 EDT us Hilton Álvarez MD PACKAGES & DNA PROBE ORDER LYNDSEY Final Result Performing Organization Address [facility] de Phone Number [facility] [address] [place] [address] * BUN (10/26/2004 3:53 EDT) BUN 18 8 - 21 mg/dl [facility] Comment:Heparinized plasma. 10/26/2004 3:53 EDT 10/26/2004 3:53 EDT Hilton Álvarez MD CHEMISTRY & BLOOD GAS ORDE RABLES Final Result Performing Organization Address [facility] de Phone Number [facility] [address] [place] [address] * (ABNORMAL) ELECTROLYTES (10/26/2004 0:15 EDT) Sodium 135(L) 136 - 145 mEq/L [facility] Potassium 3.8 3.6 - 5.2 mEq/L [facility] Chloride 100 96 - 110 mEq/L [facility] CO2 27 24 - 32 mEq/L [facility] 10/26/2004 0:15 EDT 10/26/2004 0:15 EDT Hilton Álvarez MD CHEMISTRY & BLOOD GAS ORDE RABLES Final Result Performing Organization Address [facility] de Phone Number [facility] [address] [place] [address] * SODIUM (10/25/2004 20:41 EDT) Sodium 139 136 - 145 mEq/L [facility] 10/25/2004 20:4 1 EDT 10/25/2004 20:41 EDT Hilton Álvarez MD CHEMISTRY & BLOOD GAS ORDE RABLES Final Result Performing Organization Address [facility] de Phone Number [facility] [address] [place] [address] * ELECTROLYTES (10/25/2004 17:25 EDT) Sodium 137 136 - 145 mEq/L [facility] Potassium 3.9 3.6 - 5.2 mEq/L [facility] Chloride 100 96 - 110 mEq/L [facility] CO2 28 24 - 32 mEq/L [facility] 10/25/2004 17:2 5 EDT 10/25/2004 17:27 EDT Hilton Álvarez MD CHEMISTRY & BLOOD GAS ORDE RABLES Final Result Performing Organization Address [facility] de Phone Number [facility] [address] [place] [address] * SODIUM (10/25/2004 12:15 EDT) Sodium 137 136 - 145 mEq/L [facility] Comment:Heparinized plasma. 10/25/2004 12:1 5 EDT 10/25/2004 12:32 EDT Hilton Álvarez MD CHEMISTRY & BLOOD GAS ORDE RABLES Final Result Performing Organization Address [facility] Phone Number [facility] [address] [place] [address] * ELECTROLYTES (10/25/2004 8:30 EDT) Sodium 136 [...] ORDE RABLES Final Result Performing Organization Address [facility] de Phone Number [facility] [address] [place] [address] * TOTAL BILIRUBIN (10/25/2004 4:13 EDT) Bilirubin, Total <0.5 0.0 - 1.4 mg/dl [facility] 10/25/2004 4:13 EDT 10/25/2004 4:13 EDT Hilton Álvarez MD CHEMISTRY & BLOOD GAS ORDE RABLES Final Result Performing Organization Address [facility] de Phone Number [facility] [address] [place] [address] * PHOSPHORUS (10/25/2004 4:13 EDT) Phosphorus 2.9 2.9 - 5.4 mg/dl [facility] 10/25/2004 4:13 EDT 10/25/2004 4:13 EDT Hilton Álvarez MD CHEMISTRY & BLOOD GAS ORDE RABLES Final Result Performing Organization Address [facility] de Phone Number [facility] [address] [place] [address] * PHENYTOIN (10/25/2004 4:13 EDT) Phenytoin 12.2 [...] ORDE RABLES Final Result Performing Organization Address [facility] de Phone Number [facility] [address] [place] [address] * MAGNESIUM (10/25/2004 4:13 EDT) Magnesium 1.8 1.7 - 2.8 mg/dl [facility] 10/25/2004 4:13 EDT 10/25/2004 4:13 EDT Hilton Álvarez MD CHEMISTRY & BLOOD GAS ORDE [facility] Final Result Performing Organization Address [facility] de Phone Number [facility] [address] [place] [address] * (ABNORMAL) ELECTROLYTES (10/25/2004 4:13 EDT) Sodium 140 136 - 145 mEq/L [facility] Potassium 3.4(L) 3.6 - 5.2 mEq/L [facility] Chloride 112(H) 96 - 110 mEq/L [facility] CO2 18(L) 24 - 32 mEq/L [facility] 10/25/2004 4:13 EDT 10/25/2004 4:13 EDT Hilton Álvarez MD CHEMISTRY & BLOOD GAS ORDE [facility] Final Result Performing Organization Address [facility] de Phone Number [facility] [address] [place] [address] * (ABNORMAL) CREATININE (10/25/2004 4:13 EDT) Creatinine 0.4(L) 0.6 - 1.2 mg/dl [facility] 10/25/2004 4:13 EDT 10/25/2004 4:13 EDT Hilton Álvarez MD HISTORICAL LAB FOR SQ LOAD Final Result Performing Organization Address [facility] de Phone Number [facility] [address] [place] [address] * (ABNORMAL) HEMAGRAM AND DIFFERENTIAL (10/25/2004 4:13 [...] of Diff: Automated [facility] 10/25/2004 4:13 EDT 10/25/2004 4:13 EDT us Hilton Álvarez MD PACKAGES & DNA PROBE ORDER LYNDSEY Final Result Performing Organization Address [facility]ZIP Co de Phone Number [facility] [address] [place] [address] * (ABNORMAL) CALCIUM (10/25/2004 4:13 EDT) Calcium 7.1(L) 8.5 - 10.5 mg/dl [facility] Calculated Calcium 8.9 8.5 - 10.5 mg/dl [facility] 10/25/2004 4:13 EDT 10/25/2004 4:13 EDT Hilton Álvarez MD CHEMISTRY & BLOOD [facility] Final Result Performing Organization Address [facility]IP Co de Phone Number [facility] [address] [place] [address] * BUN (10/25/2004 4:13 EDT) BUN 14 8 - 21 mg/dl [facility] 10/25/2004 4:13 EDT 10/25/2004 4:13 EDT us Hilton Álvarez MD CHEMISTRY & BLOOD GAS ORDE RABLES Final Result [facility] [address] [place] [address] * (ABNORMAL) AST (10/25/2004 4:13 EDT) AST 179(H) 16 - 38 U/L [facility] 10/25/2004 4:13 EDT 10/25/2004 4:13 EDT us Hilton Álvarez MD CHEMISTRY & BLOOD GAS ORDE RABLES Final Result Performing Organization Address [facility] de Phone Number [facility] [address] [place] [address] * (ABNORMAL) ALT (10/25/2004 4:13 EDT) ALT 493(H) 10 - 45 U/L [facility] 10/25/2004 4:13 EDT 10/25/2004 4:13 EDT us Hilton Álvarez MD CHEMISTRY & BLOOD GAS ORDE RABLES Final Result Performing Organization Address [facility] de Phone Number [facility] [address] [place] [address] * (ABNORMAL) ALKALINE PHOSPHATASE (10/25/2004 4:13 EDT) Total Alkaline Phosphatase 90(L) 130 - 525 U/L [facility] 10/25/2004 4:13 EDT 10/25/2004 4:13 EDT us Hilton Álvarez MD CHEMISTRY & BLOOD GAS ORDE RABLES Final Result Performing Organization Address [facility]ZIP Co de Phone Number [facility] [address] [place] [address] * (ABNORMAL) ELECTROLYTES (10/25/2004 0:07 EDT) Sodium 140 136 - 145 mEq/L [facility] Potassium 3.3(L) 3.6 - 5.2 mEq/L [facility] Chloride 110 96 - 110 mEq/L [facility] CO2 24 24 - 32 mEq/L [facility] 10/25/2004 0:07 EDT 10/25/2004 0:07 EDT Hilton Álvarez MD CHEMISTRY & BLOOD GAS ORDE RABLES Final Result Performing Organization Address [facility]ZIP Co de Phone Number [facility] [address] [place] [address] * SODIUM (10/24/2004 20:14 EDT) Sodium 139 136 - 145 mEq/L [facility] 10/24/2004 20:1 4 EDT 10/24/2004 20:14 EDT Hilton Álvarez MD CHEMISTRY & BLOOD GAS ORDE RABLES Final Result Performing Organization Address [facility] de Phone Number [facility] [address] [place] [address] * PHOSPHORUS (10/24/2004 16:01 EDT) Phosphorus 2.9 2.9 - 5.4 mg/dl [facility] 10/24/2004 16:0 1 EDT 10/24/2004 16:06 EDT Hilton Álvarez MD CHEMISTRY & BLOOD GAS ORDE RABLES Final Result Performing Organization Address [facility] de Phone Number [facility] [address] [place] [address] * ELECTROLYTES (10/24/2004 16:01 EDT) Sodium 140 136 - 145 mEq/L [facility] Potassium 3.8 3.6 - 5.2 mEq/L [facility] Chloride 108 96 - 110 mEq/L [facility] CO2 27 24 - 32 mEq/L [facility] 10/24/2004 16:0 1 EDT 10/24/2004 16:06 EDT Hilton Álvarez MD CHEMISTRY & BLOOD GAS ORDE RABLES Final Result Performing Organization Address [facility] de Phone Number [facility] [address] [place] [address] * SODIUM (10/24/2004 12:05 EDT) Sodium 142 136 - 145 mEq/L [facility] 10/24/2004 12:0 5 EDT 10/24/2004 12:05 EDT Hilton Álvarez MD CHEMISTRY & BLOOD GAS ORDE RABLES Final Result Performing Organization Address [facility] de Phone Number [facility] [address] [place] [address] * (ABNORMAL) ELECTROLYTES (10/24/2004 10:36 EDT) Sodium [...] ORDE RABLES Final Result Performing Organization Address [facility] de Phone Number [facility] [address] [place] [address] * SODIUM (10/24/2004 8:01 EDT) Sodium 140 136 - 145 mEq/L [facility] 10/24/2004 8:01 EDT 10/24/2004 8:01 EDT Hilton Álvarez MD CHEMISTRY & BLOOD GAS ORDE RABLES Final Result Performing Organization Address [facility] Phone Number [facility] [address] [place] [address] * SODIUM (10/24/2004 6:07 EDT) Sodium 136 - 145 mEq/L [facility] 10/24/2004 6:07 EDT 10/24/2004 6:07 EDT Hilton Álvarez MD CHEMISTRY & BLOOD GAS ORDE RABLES Final Result Performing Organization Address [facility] Phone Number [facility] [address] [place] [address] * (ABNORMAL) ELECTROLYTES (10/24/2004 6:07 EDT) Sodium [...] ORDE RABLES Final Result Performing Organization Address [facility] de Phone Number [facility] [address] [place] [address] * (ABNORMAL) PHENYTOIN (10/24/2004 4:07 EDT) Phenytoin [...] ORDE RABLES Final Result Performing Organization Address [facility] de Phone Number [facility] [address] [place] [address] * SODIUM (10/24/2004 4:07 EDT) Sodium 138 136 - 145 mEq/L [facility] Comment:Heparinized plasma. 10/24/2004 4:07 EDT 10/24/2004 4:07 EDT Hilton Álvarez MD CHEMISTRY & BLOOD GAS ORDE RABLES Final Result Performing Organization Address [facility] Phone Number [facility] [address] [place] [address] * (ABNORMAL) CREATININE (10/24/2004 4:07 EDT) Creatinine 0.5(L) 0.6 - 1.2 mg/dl [facility] Comment:Heparinized plasma. 10/24/2004 4:07 EDT 10/24/2004 4:07 EDT Hilton Álvarez MD HISTORICAL LAB FOR SQ LOAD Final Result Performing Organization Address [facility] de Phone Number [facility] [address] [place] [address] * (ABNORMAL) HEMAGRAM AND DIFFERENTIAL (10/24/2004 4:07 EDT) WBC 7.77 4.5 - 13.0 K/cmm [facility] [...] 16.4 % [facility] % Neutrophils 74.2 % FLETCH [...] of Diff: Automated [facility] 10/24/2004 4:07 EDT 10/24/2004 4:07 EDT us Hilton Álvarez MD PACKAGES & DNA PROBE ORDER LYNDSEY Final Result Performing Organization Address [facility] de Phone Number [facility] [address] [place] [address] * BUN (10/24/2004 4:07 EDT) BUN 15 8 - 21 mg/dl [facility] Comment:Heparinized plasma. 10/24/2004 4:07 EDT 10/24/2004 4:07 EDT us Hilton Álvarez MD CHEMISTRY & BLOOD GAS ORDE RABLES Final Result Performing Organization Address [facility] de Phone Number [facility] [address] [place] [address] * (ABNORMAL) ELECTROLYTES (10/24/2004 2:23 EDT) Sodium 140 136 - 145 mEq/L [facility] Comment:Heparinized plasma. Potassium 3.4(L) 3.6 - 5.2 mEq/L [facility] Comment:Heparinized plasma. Chloride 104 96 - 110 mEq/L [facility] Comment:Heparinized plasma. CO2 27 24 - 32 mEq/L [facility] Comment:Heparinized plasma. 10/24/2004 2:23 EDT 10/24/2004 2:23 EDT Hilton Álvarez MD CHEMISTRY & BLOOD GAS ORDE RABLES Final Result Performing Organization Address [facility] Phone Number [facility] [address] [place] [address] * SODIUM (10/24/2004 2:12 EDT) Sodium 136 - 145 mEq/L [facility] 10/24/2004 2:12 EDT 10/24/2004 2:22 EDT Hilton Álvarez MD CHEMISTRY & BLOOD GAS ORDE RABLES Final Result Performing Organization Address [facility] Phone Number [facility] [address] [place] [address] * SODIUM (10/24/2004 0:47 EDT) Sodium 141 136 - 145 mEq/L [facility] Comment:Heparinized plasma. 10/24/2004 0:47 EDT 10/24/2004 0:47 EDT Hilton Álvarez MD CHEMISTRY & BLOOD GAS ORDE RABLES Final Result Performing Organization Address [facility] de Phone Number [facility] [address] [place] [address] * (ABNORMAL) GLUCOSE, GLUCOMETER (10/24/2004 0:12 EDT) Glucose, Fingerstick 145(H) 70 - 110 mg/dl [facility] Rn Endocrinology ID [id number] Test Performed by Nursing Services [facility] 10/24/2004 0:12 EDT 10/25/2004 0:24 EDT Hilton Álvarez MD CHEMISTRY & BLOOD GAS ORDE RABLES Final Result Performing Organization Address [facility] de Phone Number [facility] [address] [place] [address] * (ABNORMAL) ELECTROLYTES (10/23/2004 22:07 EDT) Sodium 141 136 - 145 mEq/L [facility] Potassium 2.9(LL) 3.6 - 5.2 mEq/L [facility] Chloride 107 96 - 110 mEq/L [facility] CO2 27 24 - 32 mEq/L [facility] 10/23/2004 22:0 7 EDT 10/23/2004 22:07 EDT Hilton Álvarez MD CHEMISTRY & BLOOD GAS ORDE RABLES Final Result Performing Organization Address [facility] de Phone Number [facility] [address] [place] [address] * (ABNORMAL) SODIUM (10/23/2004 20:02 EDT) Sodium 146(H) 136 - 145 mEq/L [facility] 10/23/2004 20:0 2 EDT 10/23/2004 20:02 EDT Hilton Álvarez MD CHEMISTRY & BLOOD GAS ORDE RABLES Final Result Performing Organization Address [facility] de Phone Number [facility] [address] [place] [address] * (ABNORMAL) ELECTROLYTES (10/23/2004 17:40 EDT) Sodium 146(H) 136 - 145 mEq/L [facility] Potassium 3.2(L) 3.6 - 5.2 mEq/L [facility] Chloride 110 96 - 110 mEq/L [facility] CO2 28 24 - 32 mEq/L [facility] 10/23/2004 17:4 0 EDT 10/23/2004 17:40 EDT us Hilton Álvarez MD CHEMISTRY & BLOOD GAS ORDEmerald RIDDHI Final Result [facility] [address] [place] [address] * CT HEAD WO CONTRAST (10/23/2004 15:29 [...] since previous, as is the sinus thickening. /[facility] Narrative 03/06/2009 9:26 EDT H/O AKINETIC MUTISM [...] interval resolution of intracranial edema. Procedure Note Jose Armando Barker MD - 03/06/2009 H/O AKINETIC MUTISM S/P [...] since previous, as is the sinus thickening. /[facility] Hilton Álvarez MD IMG CT ORDERABLES Final Re sult * PHENYTOIN (10/23/2004 14:07 EDT) Phenytoin 4.1 [...] HANNON Final Result [facility] [address] [place] [address] * (ABNORMAL) SODIUM (10/23/2004 14:07 EDT) Sodium 146(H) 136 - 145 mEq/L [facility] Comment:Slight hemolysis 10/23/2004 14:0 7 EDT 10/23/2004 14:07 EDT Hilton Álvarez MD CHEMISTRY & BLOOD GAS ORDE RABLES Final Result Performing Organization Address City/State/[place] [facility] de Phone Number [facility] [address] [place] [address] * (ABNORMAL) ELECTROLYTES (10/23/2004 11:54 EDT) Sodium [...] ORDE RIDDHI Final Result Performing Organization Address [facility] de Phone Number [facility] [address] [place] [address] * (ABNORMAL) SODIUM (10/23/2004 10:00 EDT) Sodium 149(H) 136 - 145 mEq/L [facility] Comment:Heparinized plasma. 10/23/2004 10:0 0 EDT 10/23/2004 10:00 EDT Hilton Álvarez MD CHEMISTRY & BLOOD GAS ORDE RABREBECA Final Result Performing Organization Address [facility] de Phone Number [facility] [address] [place] [address] * (ABNORMAL) ELECTROLYTES (10/23/2004 7:51 EDT) Sodium 149(H) 136 - 145 mEq/L [facility] Potassium 3.3(L) 3.6 - 5.2 mEq/L [facility] Chloride 116(H) 96 - 110 mEq/L [facility] CO2 26 24 - 32 mEq/L [facility] 10/23/2004 7:51 EDT 10/23/2004 7:51 EDT us Hilton Álvarez MD CHEMISTRY & BLOOD GAS ORDEmerald HANNON Final Result Performing Organization Address [facility] Phone Number [facility] [address] [place] [address] * (ABNORMAL) SODIUM (10/23/2004 6:00 EDT) Sodium 150(H) 136 - 145 mEq/L [facility] 10/23/2004 6:00 EDT 10/23/2004 6:21 EDT us Hilton Álvarez MD CHEMISTRY & BLOOD GAS ORDEmerald RABREBECA Final Result Performing Organization Address [facility] Phone Number [facility] [address] [place] [address] * (ABNORMAL) ELECTROLYTES (10/23/2004 4:00 EDT) Sodium 150(H) 136 - 145 mEq/L [facility] Potassium 3.6 3.6 - 5.2 mEq/L [facility] Chloride 118(H) 96 - 110 mEq/L [facility] CO2 26 24 - 32 mEq/L [facility] 10/23/2004 4:00 EDT 10/23/2004 4:17 EDT us Hilton Álvarez MD CHEMISTRY & BLOOD GAS ORDEmerald HANNON Final Result Performing Organization Address [facility] de Phone Number [facility] [address] [place] [address] * (ABNORMAL) CREATININE (10/23/2004 4:00 EDT) Creatinine 0.5(L) 0.6 - 1.2 mg/dl [facility] 10/23/2004 4:00 EDT 10/23/2004 4:17 EDT us Hilton Álvarez MD HISTORICAL LAB FOR SQ LOAD Final Result Performing Organization Address [facility]/State/ZIP Co de Phone Number [facility] [address] [place] [address] * (ABNORMAL) HEMAGRAM AND DIFFERENTIAL (10/23/2004 4:00 [...] K/cmm [facility] RDW-CV 16.6 % [facility] Neutrophils 78.0 % [facility] Lymphocytes 16.0 % [facility] Monocytes 2.0 % [facility] Basophils 4.0 % [facility] ABS Neutrophils 5.98 K/cmm [facility] ABS Lymphs 1.23 K/cmm [...] LYNDSEY Final Result [facility] [address] [place] [address] * BUN (10/23/2004 4:00 EDT) BUN 16 8 - 21 mg/dl [facility] 10/23/2004 4:00 EDT 10/23/2004 4:17 EDT Hilton Álvarez MD CHEMISTRY & BLOOD GAS ORDE RABLES Final Result Performing Organization Address [facility] de Phone Number [facility] [address] [place] [address] * (ABNORMAL) SODIUM (10/23/2004 2:00 EDT) Sodium 153(H) 136 - 145 mEq/L [facility] 10/23/2004 2:00 EDT 10/23/2004 2:13 EDT Hilton Álvarez MD CHEMISTRY & BLOOD GAS ORDE RABLES Final Result Performing Organization Address [facility] de Phone Number [facility] [address] [place] [address] * (ABNORMAL) ELECTROLYTES (10/23/2004 0:00 EDT) Sodium 151(H) 136 - 145 mEq/L [facility] Potassium 3.9 3.6 - 5.2 mEq/L [facility] Chloride 117(H) 96 - 110 mEq/L [facility] CO2 27 24 - 32 mEq/L [facility] 10/23/2004 10/23/2004 0:3 8 EDT Hilton Álvarez MD CHEMISTRY & BLOOD GAS ORDE RABLES Final Result Performing Organization Address [facility] de Phone Number [facility] [address] [place] [address] * (ABNORMAL) SODIUM (10/22/2004 21:59 EDT) Sodium 149(H) 136 - 145 mEq/L [facility] 10/22/2004 21:5 9 EDT 10/22/2004 21:59 EDT Hilton lÁvarez MD CHEMISTRY & BLOOD GAS ORDE RABLES Final Result Performing Organization Address [facility] de Phone Number [facility] [address] [place] [address] * (ABNORMAL) ELECTROLYTES (10/22/2004 20:23 EDT) Sodium 151(H) 136 - 145 mEq/L [facility] Potassium 3.8 3.6 - 5.2 mEq/L [facility] Chloride 117(H) 96 - 110 mEq/L [facility] CO2 28 24 - 32 mEq/L [facility] 10/22/2004 20:2 3 EDT 10/22/2004 20:23 EDT Hilton Álvarez MD CHEMISTRY & BLOOD GAS ORDE RABLES Final Result Performing Organization Address [facility] de Phone Number [facility] [address] [place] [address] * (ABNORMAL) SODIUM (10/22/2004 18:05 EDT) Sodium 147(H) 136 - 145 mEq/L [facility] 10/22/2004 18:0 5 EDT 10/22/2004 18:09 EDT Hilton Álvarez MD CHEMISTRY & BLOOD GAS ORDE RABLES Final Result Performing Organization Address [facility] de Phone Number [facility] [address] [place] [address] * (ABNORMAL) ELECTROLYTES (10/22/2004 16:40 EDT) Sodium 148(H) 136 - 145 mEq/L [facility] Potassium 3.4(L) 3.6 - 5.2 mEq/L [facility] Chloride 120(H) 96 - 110 mEq/L [facility] CO2 24 24 - 32 mEq/L [facility] 10/22/2004 16:4 0 EDT 10/22/2004 16:43 EDT Hilton Álvarez MD CHEMISTRY & BLOOD GAS ORDE RABLES Final Result Performing Organization Address City/[facility] de Phone Number [facility] [address] [place] [address] * TRIGLYCERIDE (10/22/2004 14:10 EDT) Triglycerides 164 34 - 165 mg/dl [facility] Comment:Heparinized plasma. 10/22/2004 14:1 0 EDT 10/22/2004 14:16 EDT Hilton Álvarez MD CHEMISTRY & BLOOD GAS HERMES HANNON Final Result Performing Organization Address [facility] de Phone Number [facility] [address] [place] [address] * (ABNORMAL) SODIUM (10/22/2004 14:10 EDT) Sodium 147(H) 136 - 145 mEq/L [facility] Comment:Heparinized plasma. 10/22/2004 14:1 0 EDT 10/22/2004 14:16 EDT Hilton Álvarez MD CHEMISTRY & BLOOD GAS HERMES HANNON Final Result Performing Organization Address [facility] de Phone Number [facility] [address] [place] [address] * OSMOLALITY, URINE (10/22/2004 12:50 EDT) Pathologist [facility] Osmolality, Ur 864 MOS/KG HOLLY GARCIA 10/22/2004 12:5 0 EDT 10/22/2004 12:52 EDT Hilton Álvarez MD URINALYSIS ORDERABLES Jacquie l Result Performing Organization Address [facility] de Phone Number [facility] [address] [place] [address] * SODIUM, URINE RANDOM (10/22/2004 12:50 EDT) Pathologist [facility] Sodium, Ur 191.0 mEq/L [facility] 10/22/2004 12:5 0 EDT 10/22/2004 12:52 EDT Hilton Álvarez MD URINALYSIS ORDERABLES Jacquie l Result Performing Organization Address [facility] de Phone Number [facility] [address] [place] [address] * (ABNORMAL) GLUCOSE, GLUCOMETER (10/22/2004 12:16 EDT) Glucose, Fingerstick 124(H) 70 - 110 mg/dl [facility] Rn Endocrinology [place] [id number] Test Performed by Nursing Services [facility] 10/22/2004 12:1 6 EDT 10/23/2004 0:41 EDT Hilton Álvarez MD CHEMISTRY & BLOOD GAS ORDE RABREBECA Final Result Performing Organization Address [facility] de Phone Number [facility] [address] [place] [address] * (ABNORMAL) T4 FREE (10/22/2004 12:05 EDT) Pathologist [facility] Free T4 0.5(L) 0.8 - 1.8 ng/dl [facility] Comment:Test added by phone 10/22/2004 12:0 5 EDT 10/22/2004 14:04 EDT Hilton Álvarez MD CHEMISTRY & BLOOD GAS ORDE RABREBECA Final Result Performing Organization Address [facility] de Phone Number [facility] [address] [place] [address] * (ABNORMAL) ELECTROLYTES (10/22/2004 12:05 EDT) Sodium 147(H) 136 - 145 mEq/L [facility] Potassium 3.6 3.6 - 5.2 mEq/L [facility] Chloride 116(H) 96 - 110 mEq/L [facility] CO2 25 24 - 32 mEq/L [facility] 10/22/2004 12:0 5 EDT 10/22/2004 12:19 EDT Hilton Álvarez MD CHEMISTRY & BLOOD GAS ORDE RABLES Final Result Performing Organization Address City/[facility]/[place] de Phone Number [facility] [address] [place] [address] * T4 FREE (10/22/2004 12:05 EDT) Free T4 Testing cannot be performed on heparinized samples. 0.8 - 1.8 ng/dl [facility] 10/22/2004 12:0 5 EDT 10/22/2004 12:19 EDT Hilton Álvarez MD CHEMISTRY & BLOOD GAS ORDE RABLES Final Result Performing Organization Address [facility] de Phone Number [facility] [address] [place] [address] * TESTS ADDED BY PHONE (10/22/2004 12:05 EDT) [facility] Tests to be added FT4 [facility] 10/22/2004 12:0 5 EDT 10/22/2004 12:19 EDT Hilton Álvarez MD CHEMISTRY & BLOOD GAS ORDE RABLES Final Result Performing Organization Address [facility] de Phone Number [facility] [address] [place] [address] * (ABNORMAL) SODIUM (10/22/2004 10:00 EDT) [facility] Sodium 148(H) 136 - 145 mEq/L [facility] 10/22/2004 10:0 0 EDT 10/22/2004 10:03 EDT Hilton Álvarez MD CHEMISTRY & BLOOD GAS ORDE RABLES Final Result Performing Organization Address [facility] de Phone Number [facility] [address] [place] [address] * (ABNORMAL) ELECTROLYTES (10/22/2004 8:10 EDT) [facility] Sodium 147(H) 136 - 145 mEq/L [facility] Comment:Heparinized plasma. Potassium 3.6 3.6 - 5.2 mEq/L [facility] Comment:Heparinized plasma. Chloride 115(H) 96 - 110 mEq/L [facility] Comment:Heparinized plasma. CO2 25 24 - 32 mEq/L [facility] Comment:Heparinized plasma. 10/22/2004 8:10 EDT 10/22/2004 8:19 EDT Hilton Álvarez MD CHEMISTRY & BLOOD GAS ORDE RABLES Final Result [facility] [address] [place] [address] * T4 FREE (10/22/2004 8:10 EDT) Free T4 Testing cannot be performed on heparinized samples. 0.8 - 1.8 ng/dl [facility] 10/22/2004 8:10 EDT 10/22/2004 8:19 EDT Hilton Álvarez MD CHEMISTRY & BLOOD GAS ORDE RABLES Final Result Performing Organization Address City/[facility]/ZIP Co de Phone Number [facility] [address] [place] [address] * TESTS ADDED BY PHONE (10/22/2004 8:10 EDT) Tests to be added FT4 [facility] 10/22/2004 8:10 EDT 10/22/2004 8:19 EDT Hilton Álvarez MD CHEMISTRY & BLOOD GAS ORDE RABLES Final Result Performing Organization Address City/[facility]/ZIP Co de Phone Number [facility] [address] [place] [address] * (ABNORMAL) SODIUM (10/22/2004 6:05 EDT) Sodium 149(H) 136 - 145 mEq/L [facility] 10/22/2004 6:05 EDT 10/22/2004 6:05 EDT Hilton Álvarez MD CHEMISTRY & BLOOD GAS ORDE RABLES Final Result Performing Organization Address [facility] de Phone Number [facility] [address] [place] [address] * TOTAL BILIRUBIN (10/22/2004 4:15 EDT) Bilirubin, Total <0.5 0.0 - 1.4 mg/dl [facility] Comment:Heparinized plasma. 10/22/2004 4:15 EDT 10/22/2004 4:15 EDT Hilton Álvarez MD CHEMISTRY & BLOOD GAS ORDE RABLES Final Result Performing Organization Address [facility] Phone Number [facility] [address] [place] [address] * GLUCOSE, SERUM (10/22/2004 4:15 EDT) Glucose, Serum 104 70 - 110 mg/dl [facility] Comment:Heparinized plasma. 10/22/2004 4:15 EDT 10/22/2004 4:15 EDT Hilton Álvarez MD CHEMISTRY & BLOOD GAS ORDE RABLES Final Result Performing Organization Address [facility] de Phone Number [facility] [address] [place] [address] * (ABNORMAL) PHOSPHORUS (10/22/2004 4:15 EDT) Phosphorus 2.8(L) 2.9 - 5.4 mg/dl [facility] Comment:Heparinized plasma. 10/22/2004 4:15 EDT 10/22/2004 4:15 EDT Hilton Álvarez MD CHEMISTRY & BLOOD GAS ORDE RABLES Final Result Performing Organization Address [facility] de Phone Number [facility] [address] [place] [address] * MAGNESIUM (10/22/2004 4:15 EDT) Pathologist [facility] Magnesium 2.6 1.7 - 2.8 mg/dl [facility] Comment:Heparinized plasma. 10/22/2004 4:15 EDT 10/22/2004 4:15 EDT Hilton Álvarez MD CHEMISTRY & BLOOD GAS ORDE [facility] Final Result Performing Organization Address [facility] de Phone Number [facility] [address] [place] [address] * (ABNORMAL) ELECTROLYTES (10/22/2004 4:15 EDT) Pathologist [facility] Sodium 148(H) 136 - 145 mEq/L [facility] Comment:Heparinized plasma. Potassium 3.7 3.6 - 5.2 mEq/L [facility] Comment:Heparinized plasma. Chloride 115(H) 96 - 110 mEq/L [facility] Comment:Heparinized plasma. CO2 25 24 - 32 mEq/L [facility] Comment:Heparinized plasma. 10/22/2004 4:15 EDT 10/22/2004 4:15 EDT Hilton Álvarez MD CHEMISTRY & BLOOD GAS ORDE [facility] Final Result Performing Organization Address [facility] Phone Number [facility] [address] [place] [address] * (ABNORMAL) CREATININE (10/22/2004 4:15 EDT) [facility] Creatinine 0.5(L) 0.6 - 1.2 mg/dl [facility] Comment:Heparinized plasma. 10/22/2004 4:15 EDT 10/22/2004 4:15 EDT Hilton Álvarez MD HISTORICAL LAB FOR SQ LOAD Final Result Performing Organization Address [facility] de Phone Number [facility] [address] [place] [address] * (ABNORMAL) HEMAGRAM AND DIFFERENTIAL (10/22/2004 4:15 [...] LAB PLT 417(H) 156 - 312 K/cmm [facility] RDW-CV 15.8 % [facility] [...] of Diff: Automated [facility] 10/22/2004 4:15 EDT 10/22/2004 4:15 EDT us Hilton Álvarez MD PACKAGES & DNA PROBE ORDER LYNDSEY Final Result [facility] [address] [place] [address] * (ABNORMAL) CALCIUM (10/22/2004 4:15 EDT) Calcium 7.6(L) 8.5 - 10.5 mg/dl [facility] Comment:Heparinized plasma. Calculated Calcium 9.0 8.5 - 10.5 mg/dl [facility] Comment:Heparinized plasma. 10/22/2004 4:15 EDT 10/22/2004 4:15 EDT us Hilton Álvarez MD CHEMISTRY & BLOOD GAS ORDE RABLES Final Result Performing Organization Address [facility] de Phone Number [facility] [address] [place] [address] * BUN (10/22/2004 4:15 EDT) BUN 15 8 - 21 mg/dl [facility] Comment:Heparinized plasma. 10/22/2004 4:15 EDT 10/22/2004 4:15 EDT us Hilton Álvarez MD CHEMISTRY & BLOOD GAS ORDE RABLES Final Result Performing Organization Address [facility] de Phone Number [facility] [address] [place] [address] * (ABNORMAL) AST (10/22/2004 4:15 EDT) AST 91(H) 16 - 38 U/L [facility] Comment: Sample retested, result confirmed Heparinized plasma. 10/22/2004 4:15 EDT 10/22/2004 4:15 EDT us Hilton Álvarez MD CHEMISTRY & BLOOD GAS ORDE RABLES Final Result Performing Organization Address [facility] de Phone Number [facility] [address] [place] [address] * (ABNORMAL) ALT (10/22/2004 4:15 EDT) ALT 222(H) 10 - 45 U/L [facility] Comment: Sample retested, result confirmed Heparinized plasma. 10/22/2004 4:15 EDT 10/22/2004 4:15 EDT us Hitlon Álvarez MD CHEMISTRY & BLOOD GAS ORDE RABLES Final Result Performing Organization Address [facility] de Phone Number [facility] [address] [place] [address] * (ABNORMAL) ALKALINE PHOSPHATASE (10/22/2004 4:15 EDT) Total Alkaline Phosphatase 92(L) 130 - 525 U/L [facility] Comment:Heparinized plasma. 10/22/2004 4:15 EDT 10/22/2004 4:15 EDT Hilton Álvarez MD CHEMISTRY & BLOOD GAS ORDE [facility] Final Result Performing Organization Address [facility] Phone Number [facility] [address] [place] [address] * SODIUM (10/22/2004 1:58 EDT) Pathologist [facility] Sodium 144 136 - 145 mEq/L [facility] Comment:Heparinized plasma. 10/22/2004 1:58 EDT 10/22/2004 1:58 EDT Hilton Álvarez MD CHEMISTRY & BLOOD GAS ORDE [facility] Final Result Performing Organization Address [facility] Phone Number [facility] [address] [place] [address] * ELECTROLYTES (10/22/2004 0:05 EDT) Pathologist [facility] Sodium 140 136 - 145 mEq/L [facility] Comment:Heparinized plasma. Potassium 3.8 3.6 - 5.2 mEq/L [facility] Comment:Heparinized plasma. Chloride 104 96 - 110 mEq/L [facility] Comment:Heparinized plasma. CO2 28 24 - 32 mEq/L [facility] Comment:Heparinized plasma. 10/22/2004 0:05 EDT 10/22/2004 0:05 EDT Hilton Álvarez MD CHEMISTRY & BLOOD GAS ORDE [facility] Final Result Performing Organization Address [facility] Phone Number [facility] [address] [place] [address] * (ABNORMAL) GLUCOSE, GLUCOMETER (10/22/2004 0:01 EDT) Glucose, Fingerstick 132(H) 70 - 110 mg/dl [facility] Rn [place]ocr[place]ology [place] [id number] Test Performed by Nursing Services [facility] 10/22/2004 0:01 EDT 10/23/2004 1:02 EDT Hilton Álvarez MD CHEMISTRY & BLOOD GAS ORDE RABLES Final Result Performing Organization Address [facility] de Phone Number [facility] [address] [place] [address] * SODIUM (10/21/2004 22:04 EDT) Sodium 137 136 - 145 mEq/L [facility] 10/21/2004 22:0 4 EDT 10/21/2004 22:04 EDT Hilton Álvarez MD CHEMISTRY & BLOOD GAS ORDE RABLES Final Result Performing Organization Address [facility] de Phone Number [facility] [address] [place] [address] * (ABNORMAL) GLUCOSE, GLUCOMETER (10/21/2004 21:59 EDT) Glucose, Fingerstick 121(H) 70 - 110 mg/dl [facility] Rn Endocrinology ID [id number] Test Performed by Nursing Services [facility] 10/21/2004 21:5 9 EDT 10/22/2004 0:20 EDT Hilton Álvarez MD CHEMISTRY & BLOOD GAS ORDE RABLES Final Result Performing Organization Address [facility] de Phone Number [facility] [address] [place] [address] * (ABNORMAL) ELECTROLYTES (10/21/2004 19:46 EDT) Sodium [...] ORDE RABLES Final Result Performing Organization Address [facility] de Phone Number [facility] [address] [place] [address] * (ABNORMAL) GLUCOSE, GLUCOMETER (10/21/2004 18:19 EDT) Glucose, Fingerstick 129(H) 70 - 110 mg/dl [facility] Rn Endocrinology [place] [id number] Test Performed by Nursing Services [facility] 10/21/2004 18:1 9 EDT 10/22/2004 0:26 EDT Hilton Álvarez MD CHEMISTRY & BLOOD GAS ORDE RABLES Final Result Performing Organization Address [facility] de Phone Number [facility] [address] [place] [address] * SODIUM (10/21/2004 18:18 EDT) Sodium 138 136 - 145 mEq/L [facility] 10/21/2004 18:1 8 EDT 10/21/2004 18:23 EDT Hilton Álvarez MD CHEMISTRY & BLOOD GAS ORDE RABLES Final Result Performing Organization Address [facility] de Phone Number [facility] [address] [place] [address] * ELECTROLYTES (10/21/2004 15:58 EDT) Sodium 138 136 - 145 mEq/L [facility] Comment:Heparinized plasma. Potassium 3.8 3.6 - 5.2 mEq/L [facility] Comment:Heparinized plasma. Chloride 101 96 - 110 mEq/L [facility] Comment:Heparinized plasma. CO2 28 24 - 32 mEq/L [facility] Comment:Heparinized plasma. 10/21/2004 15:5 8 EDT 10/21/2004 15:59 EDT Hilton Álvarez MD CHEMISTRY & BLOOD GAS ORDE RABLES Final Result Performing Organization Address [facility] de Phone Number [facility] [address] [place] [address] * (ABNORMAL) SODIUM (10/21/2004 14:13 EDT) Sodium 132(L) 136 - 145 mEq/L [facility] Comment:Heparinized plasma. 10/21/2004 14:1 3 EDT 10/21/2004 14:13 EDT Hilton Álvarez MD CHEMISTRY & BLOOD GAS ORDE RABLES Final Result Performing Organization Address [facility] Phone Number [facility] [address] [place] [address] * (ABNORMAL) GLUCOSE, GLUCOMETER (10/21/2004 14:07 EDT) Glucose, Fingerstick 116(H) 70 - 110 mg/dl [facility] Rn Endocrinology [place] [id number] Test Performed by Nursing Services AN[facility] 10/21/2004 14:0 7 EDT 10/22/2004 0:24 EDT Hilton Álvarez MD CHEMISTRY & BLOOD GAS ORDE RABLES Final Result Performing Organization Address [facility] de Phone Number [facility] [address] [place] [address] * (ABNORMAL) ELECTROLYTES (10/21/2004 12:00 EDT) Sodium 131(L) 136 - 145 mEq/L [facility] Potassium 4.0 3.6 - 5.2 mEq/L [facility] Chloride 98 96 - 110 mEq/L [facility] CO2 27 24 - 32 mEq/L [facility] 10/21/2004 12:0 0 EDT 10/21/2004 12:07 EDT Hilton Álvarez MD CHEMISTRY & BLOOD GAS ORDE RABLES Final Result Performing Organization Address [facility] de Phone Number [facility] [address] [place] [address] * (ABNORMAL) SODIUM (10/21/2004 10:00 EDT) Sodium 133(L) 136 - 145 mEq/L [facility] Comment:Heparinized plasma. 10/21/2004 10:0 0 EDT 10/21/2004 10:05 EDT Hilton Álvarez MD CHEMISTRY & BLOOD GAS ORDE RABLES Final Result Performing Organization Address [facility] Phone Number [facility] [address] [place] [address] * (ABNORMAL) GLUCOSE, GLUCOMETER (10/21/2004 8:10 EDT) Glucose, Fingerstick 111(H) 70 - 110 mg/dl [facility] Rn Endocrinology ID [id number] Test Performed by Nursing Services [facility] 10/21/2004 8:10 EDT 10/22/2004 0:22 EDT Hilton Álvarez MD CHEMISTRY & BLOOD GAS ORDE RABLES Final Result Performing Organization Address [facility] de Phone Number [facility] [address] [place] [address] * (ABNORMAL) ELECTROLYTES (10/21/2004 8:00 EDT) Sodium 132(L) 136 - 145 mEq/L [facility] Comment:Heparinized plasma. Potassium 4.0 3.6 - 5.2 mEq/L [facility] Comment:Heparinized plasma. Chloride 98 96 - 110 mEq/L [facility] Comment:Heparinized plasma. CO2 29 24 - 32 mEq/L [facility] Comment:Heparinized plasma. 10/21/2004 8:00 EDT 10/21/2004 8:16 EDT Hilton Álvarez MD CHEMISTRY & BLOOD GAS ORDE RABLES Final Result Performing Organization Address [facility] Phone Number [facility] [address] [place] [address] * (ABNORMAL) SODIUM (10/21/2004 6:05 EDT) Sodium 133(L) 136 - 145 mEq/L [facility] 10/21/2004 6:05 EDT 10/21/2004 6:05 EDT Hilton Álvarez MD CHEMISTRY & BLOOD GAS ORDE RABLES Final Result Performing Organization Address [facility] Phone Number [facility] [address] [place] [address] * (ABNORMAL) GLUCOSE, GLUCOMETER (10/21/2004 4:06 EDT) Glucose, Fingerstick 123(H) 70 - 110 mg/dl [facility] Rn Endocrinology ID [id number] Test Performed by Nursing Services [facility] 10/21/2004 4:06 EDT 10/22/2004 0:11 EDT Hilton Álvarez MD CHEMISTRY & BLOOD GAS ORDE RABLES Final Result Performing Organization Address [facility] Phone Number [facility] [address] [place] [address] * (ABNORMAL) ELECTROLYTES (10/21/2004 4:06 EDT) Sodium 133(L) 136 - 145 mEq/L [facility] Potassium 4.0 3.6 - 5.2 mEq/L [facility] Chloride 98 96 - 110 mEq/L [facility] CO2 28 24 - 32 mEq/L [facility] 10/21/2004 4:06 EDT 10/21/2004 4:06 EDT Hilton Álvarez MD CHEMISTRY & BLOOD GAS ORDE RABLES Final Result Performing Organization Address [facility]/ZIP Co de Phone Number [facility] [address] [place] [address] * CREATININE (10/21/2004 4:06 EDT) Creatinine 0.7 0.6 - 1.2 mg/dl [facility] 10/21/2004 4:06 EDT 10/21/2004 4:06 EDT Hilton Álvarez MD HISTORICAL LAB FOR SQ LOAD Final Result Performing Organization Address [facility] de Phone Number [facility] [address] [place] [address] * (ABNORMAL) HEMAGRAM AND DIFFERENTIAL (10/21/2004 4:06 EDT) WBC 10.25 4.5 - 13.0 K/cmm [facility] RBC 3.52(L) 4.50 - 5.30 M/cmm [facility] Hemoglobin 10.1(L) 13.0 - 16.0 gm/dl [facility] HCT 29.0(L) 37.0 - 49.0 % [facility] MCV 83 78 - 98 fl [facility] MCH 28.8 pg [facility] MCHC 34.8 gm/dl [facility] PLT 415(H) 156 - 312 K/cmm [facility] RDW-CV 16.0 % [facility] Neutrophils 66.0 % [facility] Lymphocytes 29.0 % [facility] Monocytes 2.0 % [facility] Basophils 1.0 % [facility] % Metamyelocytes 2.0 % [facility] ABS Neutrophils 6.76 K/cmm [facility] ABS Lymphs 2.97 K/cmm [facility] ABS Monocytes 0.21 K/cmm [facility] ABS Basophils 0.10 K/cmm [facility] ABS Metamyelocytes 0.21 K/cmm [facility] RBC Morphology 1+ Anisocytosis 1+ Poikilocytosis 1+ Microcytes 1+ Teardrop cells [facility] WBC Morphology 1+ Smudge cells [facility] Type of Diff: Manual [facility] 10/21/2004 4:06 EDT 10/21/2004 4:06 EDT Hilton Álvarez MD PACKAGES & DNA PROBE ORDER LYNDSEY Final Result Performing Organization Address [facility] de Phone Number [facility] [address] [place] [address] * BUN (10/21/2004 4:06 EDT) BUN 13 8 - 21 mg/dl [facility] 10/21/2004 4:06 EDT 10/21/2004 4:06 EDT Hilton Álvarez MD CHEMISTRY & BLOOD GAS ORDE RABREBECA Final Result Performing Organization Address [facility] de Phone Number [facility] [address] [place] [address] * (ABNORMAL) SODIUM (10/21/2004 2:01 EDT) Sodium 134(L) 136 - 145 mEq/L [facility] 10/21/2004 2:01 EDT 10/21/2004 2:01 EDT us Hilton Álvarez MD CHEMISTRY & BLOOD GAS ORDE RABLES Final Result Performing Organization Address [facility] de Phone Number [facility] [address] [place] [address] * SODIUM (10/20/2004 22:07 EDT) Sodium 140 136 - 145 mEq/L [facility] 10/20/2004 22:0 7 EDT 10/20/2004 22:07 EDT Hilton Álvarez MD CHEMISTRY & BLOOD GAS ORDE RABLES Final Result Performing Organization Address [facility] de Phone Number [facility] [address] [place] [address] * (ABNORMAL) GLUCOSE, GLUCOMETER (10/20/2004 22:00 EDT) Glucose, Fingerstick 151(H) 70 - 110 mg/dl [facility] Rn Endocrinology ID [id number] Test Performed by Nursing Services [facility] 10/20/2004 22:0 0 EDT 10/20/2004 23:06 EDT Hliton Álvarez MD CHEMISTRY & BLOOD GAS ORDE RABLES Final Result Performing Organization Address [facility] de Phone Number [facility] [address] [place] [address] * ELECTROLYTES (10/20/2004 20:08 EDT) Sodium 136 136 - 145 mEq/L [facility] Potassium 3.8 3.6 - 5.2 mEq/L [facility] Chloride 101 96 - 110 mEq/L [facility] CO2 28 24 - 32 mEq/L [facility] 10/20/2004 20:0 8 EDT 10/20/2004 20:08 EDT Hilton Álvarez MD CHEMISTRY & BLOOD GAS ORDE RABLES Final Result Performing Organization Address [facility] de Phone Number [facility] [address] [place] [address] * (ABNORMAL) GLUCOSE, GLUCOMETER (10/20/2004 20:05 EDT) Glucose, Fingerstick 219(H) 70 - 110 mg/dl [facility] Rn Endocrinology ID [id number] Test Performed by Nursing Services [facility] 10/20/2004 20:0 5 EDT 10/20/2004 21:43 EDT Hilton Álvarez MD CHEMISTRY & BLOOD GAS ORDE RABLES Final Result Performing Organization Address [facility]/State/ZIP Co de Phone Number [facility] [address] [place] [address] * SODIUM (10/20/2004 18:00 EDT) Sodium 140 136 - 145 mEq/L [facility] 10/20/2004 18:0 0 EDT 10/20/2004 18:07 EDT Hilton Álvarez MD CHEMISTRY & BLOOD GAS ORDE RABLES Final Result Performing Organization Address [facility] de Phone Number [facility] [address] [place] [address] * (ABNORMAL) ELECTROLYTES (10/20/2004 16:00 EDT) Sodium [...] ORDE RABLES Final Result Performing Organization Address [facility] de Phone Number [facility] [address] [place] [address] * SODIUM (10/20/2004 14:00 EDT) Sodium 140 136 - 145 mEq/L [facility] 10/20/2004 14:0 0 EDT 10/20/2004 14:14 EDT Hilton Álvarez MD CHEMISTRY & BLOOD GAS ORDE RABLES Final Result Performing Organization Address [facility] de Phone Number [facility] [address] [place] [address] * (ABNORMAL) ELECTROLYTES (10/20/2004 12:42 EDT) Sodium 141 136 - 145 mEq/L [facility] Potassium 3.4(L) 3.6 - 5.2 mEq/L [facility] Chloride 109 96 - 110 mEq/L [facility] CO2 26 24 - 32 mEq/L [facility] 10/20/2004 12:4 2 EDT 10/20/2004 12:42 EDT Hilton Álvarez MD CHEMISTRY & BLOOD GAS ORDE RABLES Final Result Performing Organization Address [facility] de Phone Number [facility] [address] [place] [address] * SODIUM (10/20/2004 10:00 EDT) Sodium 143 136 - 145 mEq/L [facility] 10/20/2004 10:0 0 EDT 10/20/2004 10:28 EDT Hilton Álvarez MD CHEMISTRY & BLOOD GAS ORDE RABLES Final Result Performing Organization Address [facility] de Phone Number [facility] [address] [place] [address] * (ABNORMAL) ELECTROLYTES (10/20/2004 8:21 EDT) Sodium [...] ORDE RABLES Final Result Performing Organization Address [facility] de Phone Number [facility] [address] [place] [address] * SODIUM (10/20/2004 6:06 EDT) Sodium 143 136 - 145 mEq/L [facility] 10/20/2004 6:06 EDT 10/20/2004 6:06 EDT Hilton Álvarez MD CHEMISTRY & BLOOD GAS HERMES HANNON Final Result Performing Organization Address City/[facility]/ZIP Co de Phone Number [facility] [address] [place] [address] * TOTAL & DIRECT BILIRUBIN (10/20/2004 4:00 EDT) Conjugated Bilirubin 0.0 0.0 - 0.3 mg/dl [facility] Unconjugated Bilirubin 0.3 0.1 - 1.1 mg/dl [facility] Bilirubin, Total <0.5 0.0 - 1.4 mg/dl [facility] 10/20/2004 4:00 EDT 10/20/2004 4:00 EDT Hilton Álvarez MD CHEMISTRY & BLOOD GAS HERMES HANNON Final Result Performing Organization Address City/[facility]/ZIP Co de Phone Number [facility] [address] [place] [address] * TOTAL BILIRUBIN (10/20/2004 4:00 EDT) Bilirubin, Total 0.0 - 1.4 mg/dl [facility] 10/20/2004 4:00 EDT 10/20/2004 4:00 EDT Hilton Álvarez MD CHEMISTRY & BLOOD GAS HERMES HANNON Final Result [facility] [address] [place] [address] * PHOSPHORUS (10/20/2004 4:00 EDT) Phosphorus 3.4 2.9 - 5.4 mg/dl [facility] 10/20/2004 4:00 EDT 10/20/2004 4:00 EDT us Hilton Álvarez MD CHEMISTRY & BLOOD GAS ORDE RABLES Final Result Performing Organization Address [facility] de Phone Number [facility] [address] [place] [address] * MAGNESIUM (10/20/2004 4:00 EDT) Magnesium 2.5 1.7 - 2.8 mg/dl [facility] 10/20/2004 4:00 EDT 10/20/2004 4:00 EDT us Hilton Álvarez MD CHEMISTRY & BLOOD GAS ORDE RABLES Final Result Performing Organization Address [facility] Phone Number [facility] [address] [place] [address] * (ABNORMAL) ELECTROLYTES (10/20/2004 4:00 EDT) Sodium 145 136 - 145 mEq/L [facility] Potassium 3.8 3.6 - 5.2 mEq/L [facility] Chloride 111(H) 96 - 110 mEq/L [facility] CO2 28 24 - 32 mEq/L [facility] 10/20/2004 4:00 EDT 10/20/2004 4:00 EDT us Hilton Álvarez MD CHEMISTRY & BLOOD GAS ORDE RABLES Final Result Performing Organization Address [facility] de Phone Number [facility] [address] [place] [address] * CREATININE (10/20/2004 4:00 EDT) Creatinine 0.7 0.6 - 1.2 mg/dl [facility] 10/20/2004 4:00 EDT 10/20/2004 4:00 EDT us Hilton Álvarez MD HISTORICAL LAB FOR SQ LOAD Final Result Performing Organization Address [facility]/ZIP Co de Phone Number [facility] [address] [place] [address] * (ABNORMAL) HEMAGRAM AND DIFFERENTIAL (10/20/2004 4:00 EDT) WBC 9.88 4.5 - 13.0 K/cmm [facility] RBC 3.37(L) 4.50 - 5.30 M/cmm [facility] Hemoglobin 9.6(L) 13.0 - 16.0 gm/dl [facility] HCT 27.8(L) 37.0 - 49.0 % [facility] MCV 83 78 - 98 fl [facility] MCH 28.4 pg [facility] MCHC 34.4 gm/dl [...] 10/20/2004 4:00 EDT us Hilton Álvarez MD PACKAGES & DNA PROBE ORDER LYNDSEY Final Result Performing Organization Address [facility] de Phone Number [facility] [address] [place] [address] * (ABNORMAL) CALCIUM (10/20/2004 4:00 EDT) Calcium 7.9(L) 8.5 - 10.5 mg/dl [facility] Calculated Calcium 9.4 8.5 - 10.5 mg/dl [facility] 10/20/2004 4:00 EDT 10/20/2004 4:00 EDT Hilton Álvarez MD CHEMISTRY & BLOOD GAS ORDE RABLES Final Result Performing Organization Address [facility] de Phone Number [facility] [address] [place] [address] * BUN (10/20/2004 4:00 EDT) BUN 15 8 - 21 mg/dl [facility] 10/20/2004 4:00 EDT 10/20/2004 4:00 EDT Hilton Álvarez MD CHEMISTRY & BLOOD GAS ORDE RABLES Final Result Performing Organization Address [facility] de Phone Number [facility] [address] [place] [address] * AST (10/20/2004 4:00 EDT) AST 27 16 - 38 U/L [facility] 10/20/2004 4:00 EDT 10/20/2004 4:00 EDT Hilton Álvarez MD CHEMISTRY & BLOOD GAS ORDE RABLES Final Result Performing Organization Address [facility] de Phone Number [facility] [address] [place] [address] * (ABNORMAL) ALT (10/20/2004 4:00 EDT) ALT 50(H) 10 - 45 U/L [facility] 10/20/2004 4:00 EDT 10/20/2004 4:00 EDT us Hilton Álvarez MD CHEMISTRY & BLOOD GAS ORDE RABLES Final Result Performing Organization Address [facility] de Phone Number [facility] [address] [place] [address] * (ABNORMAL) ALKALINE PHOSPHATASE (10/20/2004 4:00 EDT) Total Alkaline Phosphatase 91(L) 130 - 525 U/L [facility] 10/20/2004 4:00 EDT 10/20/2004 4:00 EDT Hilton Álvarez MD CHEMISTRY & BLOOD GAS ORDE RABLES Final Result Performing Organization Address [facility] de Phone Number [facility] [address] [place] [address] * (ABNORMAL) GLUCOSE, GLUCOMETER (10/20/2004 3:53 EDT) Glucose, Fingerstick 183(H) 70 - 110 mg/dl [facility] Rn Endocrinology ID [id number] Test Performed by Nursing Services [facility] 10/20/2004 3:53 EDT 10/21/2004 0:38 EDT Hilton Álvarez MD CHEMISTRY & BLOOD GAS ORDE RABLES Final Result Performing Organization Address [facility] de Phone Number [facility] [address] [place] [address] * SODIUM (10/20/2004 2:07 EDT) Sodium 143 136 - 145 mEq/L [facility] 10/20/2004 2:07 EDT 10/20/2004 2:07 EDT Hilton Álvarez MD CHEMISTRY & BLOOD GAS ORDE RABLES Final Result Performing Organization Address [facility] de Phone Number [facility] [address] [place] [address] * (ABNORMAL) ELECTROLYTES (10/20/2004 0:08 EDT) Sodium 145 136 - 145 mEq/L [facility] Potassium 3.7 3.6 - 5.2 mEq/L [facility] Chloride 113(H) 96 - 110 mEq/L [facility] CO2 28 24 - 32 mEq/L [facility] 10/20/2004 0:08 EDT 10/20/2004 0:08 EDT Hilton Álvarez MD CHEMISTRY & BLOOD GAS ORDE RABLES Final Result Performing Organization Address [facility] de Phone Number [facility] [address] [place] [address] * (ABNORMAL) ELECTROLYTES (10/20/2004 0:04 EDT) Sodium 135(L) 136 - 145 mEq/L [facility] Potassium 4.0 3.6 - 5.2 mEq/L [facility] Chloride 101 96 - 110 mEq/L [facility] CO2 25 24 - 32 mEq/L [facility] 10/20/2004 0:04 EDT 10/21/2004 0:04 EDT Hilton Álvarez MD CHEMISTRY & BLOOD GAS ORDE RABLES Final Result Performing Organization Address [facility] de Phone Number [facility] [address] [place] [address] * (ABNORMAL) GLUCOSE, GLUCOMETER (10/20/2004 0:02 EDT) Glucose, Fingerstick 139(H) 70 - 110 mg/dl [facility] Rn Endocrinology ID [id number] Test Performed by Nursing Services [facility] 10/20/2004 0:02 EDT 10/20/2004 21:53 EDT Hilton Álvarez MD CHEMISTRY & BLOOD GAS ORDE RABLES Final Result Performing Organization Address [facility] de Phone Number [facility] [address] [place] [address] * (ABNORMAL) SODIUM (10/19/2004 22:12 EDT) Sodium 147(H) 136 - 145 mEq/L [facility] 10/19/2004 22:1 2 EDT 10/19/2004 22:12 EDT Hilton Álvarez MD CHEMISTRY & BLOOD GAS ORDE RABREBECA Final Result Performing Organization Address [facility] de Phone Number [facility] [address] [place] [address] * (ABNORMAL) ELECTROLYTES (10/19/2004 20:00 EDT) Sodium 149(H) 136 - 145 mEq/L [facility] Comment:Heparinized plasma. Potassium 3.7 3.6 - 5.2 mEq/L [facility] Comment:Heparinized plasma. Chloride 116(H) 96 - 110 mEq/L [facility] Comment:Heparinized plasma. CO2 27 24 - 32 mEq/L [facility] Comment:Heparinized plasma. 10/19/2004 20:0 0 EDT 10/19/2004 20:00 EDT Hilton Álvarez MD CHEMISTRY & BLOOD GAS ORDE RIDDHI Final Result Performing Organization Address [facility] Phone Number [facility] [address] [place] [address] * (ABNORMAL) GLUCOSE, GLUCOMETER (10/19/2004 19:55 EDT) Glucose, Fingerstick 165(H) 70 - 110 mg/dl [facility] Rn Endocrinology ID [id number] Test Performed by Nursing Services [facility] 10/19/2004 19:5 5 EDT 10/19/2004 23:17 EDT Hilton Álvarez MD CHEMISTRY & BLOOD GAS ORDE RABREBECA Final Result Performing Organization Address [facility] Phone Number [facility] [address] [place] [address] * (ABNORMAL) SODIUM (10/19/2004 18:27 EDT) Sodium 149(H) 136 - 145 mEq/L [facility] 10/19/2004 18:2 7 EDT 10/19/2004 18:27 EDT Hilton Álvarez MD CHEMISTRY & BLOOD GAS ORDE RIDDHI Final Result Performing Organization Address [facility] de Phone Number [facility] [address] [place] [address] * GLUCOSE, SERUM (10/19/2004 16:52 EDT) Glucose, Serum 90 70 - 110 mg/dl [facility] 10/19/2004 16:5 2 EDT 10/19/2004 16:52 EDT us Hilton Álvarez MD CHEMISTRY & BLOOD GAS ORDE RIDDHI Final Result Performing Organization Address [facility] de Phone Number [facility] [address] [place] [address] * (ABNORMAL) ELECTROLYTES (10/19/2004 16:52 EDT) Sodium 146(H) 136 - 145 mEq/L [facility] Potassium 3.9 3.6 - 5.2 mEq/L [facility] Chloride 115(H) 96 - 110 mEq/L [facility] CO2 25 24 - 32 mEq/L [facility] 10/19/2004 16:5 2 EDT 10/19/2004 16:52 EDT Hilton Álvarez MD CHEMISTRY & BLOOD GAS ORDEmerald HANNON Final Result Performing Organization Address [facility] de Phone Number [facility] [address] [place] [address] * SODIUM (10/19/2004 14:25 EDT) Sodium 143 136 - 145 mEq/L [facility] 10/19/2004 14:2 5 EDT 10/19/2004 14:25 EDT Hilton Álvarez MD CHEMISTRY & BLOOD GAS ORDE RABREBECA Final Result Performing Organization Address [facility]/ZIP Co de Phone Number [facility] [address] [place] [address] * ELECTROLYTES (10/19/2004 12:09 EDT) Sodium 139 136 - 145 mEq/L [facility] Comment:Heparinized plasma. Potassium 3.9 3.6 - 5.2 mEq/L [facility] Comment:Heparinized plasma. Chloride 102 96 - 110 mEq/L [facility] Comment:Heparinized plasma. CO2 27 24 - 32 mEq/L [facility] Comment:Heparinized plasma. 10/19/2004 12:0 9 EDT 10/19/2004 12:09 EDT Hilton Álvraez MD CHEMISTRY & BLOOD GAS ORDE RABLES Final Result Performing Organization Address [facility] de Phone Number [facility] [address] [place] [address] * SODIUM (10/19/2004 10:17 EDT) Sodium 139 136 - 145 mEq/L [facility] Comment:Heparinized plasma. 10/19/2004 10:1 7 EDT 10/19/2004 10:17 EDT Hilton Álvarez MD CHEMISTRY & BLOOD GAS ORDE RABLES Final Result Performing Organization Address [facility] de Phone Number [facility] [address] [place] [address] * ELECTROLYTES (10/19/2004 8:20 EDT) Sodium 137 136 - 145 mEq/L [facility] Potassium 4.2 3.6 - 5.2 mEq/L [facility] Chloride 103 96 - 110 mEq/L [facility] CO2 25 24 - 32 mEq/L [facility] 10/19/2004 8:20 EDT 10/19/2004 8:20 EDT Hilton Álvarez MD CHEMISTRY & BLOOD GAS ORDE RABLES Final Result Performing Organization Address City/State/[facility] de Phone Number [facility] [address] [place] [address] * OSMOLALITY, URINE (10/19/2004 6:54 EDT) Osmolality, Ur 874 MOS/KG [facility] 10/19/2004 6:54 EDT 10/19/2004 6:54 EDT Hilton Álvarez MD URINALYSIS ORDERABLES Jacquie l Result Performing Organization Address [facility]/ZIP Co de Phone Number [facility] [address] [place] [address] * SODIUM, URINE RANDOM (10/19/2004 6:54 EDT) Sodium, Ur 201.0 mEq/L [facility] 10/19/2004 6:54 EDT 10/19/2004 6:54 EDT Hilton Álvarez MD URINALYSIS ORDERABLES Jacquie l Result Performing Organization Address [facility] de Phone Number [facility] [address] [place] [address] * GLUCOSE, SERUM (10/19/2004 6:21 EDT) Pathologist [facility] Glucose, Serum 81 70 - 110 mg/dl [facility] Comment:Heparinized plasma. 10/19/2004 6:21 EDT 10/19/2004 6:21 EDT Hilton Álvarez MD CHEMISTRY & BLOOD GAS HERMES HANNON Final Result Performing Organization Address [facility] de Phone Number [facility] [address] [place] [address] * OSMOLALITY (10/19/2004 6:21 EDT) Osmolality [facility] 285 MOS/KG [facility] 10/19/2004 6:21 EDT 10/19/2004 6:21 EDT Hilton Álvarez MD CHEMISTRY & BLOOD GAS ORDE RABLES Final Result Performing Organization Address [facility] de Phone Number [facility] [address] [place] [address] * (ABNORMAL) ELECTROLYTES (10/19/2004 6:21 EDT) Sodium 137 136 - 145 mEq/L [facility] Comment:Heparinized plasma. Potassium 3.9 3.6 - 5.2 mEq/L [facility] Comment:Heparinized plasma. Chloride 110 96 - 110 mEq/L [facility] Comment: Sample retested, result confirmed Heparinized plasma. CO2 20(L) 24 - 32 mEq/L [facility] Comment:Heparinized plasma. 10/19/2004 6:21 EDT 10/19/2004 6:21 EDT Hilton Álvarez MD CHEMISTRY & BLOOD GAS ORDE RABLES Final Result Performing Organization Address [facility] de Phone Number [facility] [address] [place] [address] * (ABNORMAL) GLUCOSE, SERUM (10/19/2004 4:25 EDT) Glucose, Serum 60(L) 70 - 110 mg/dl [facility] Comment:Heparinized plasma. 10/19/2004 4:25 EDT 10/19/2004 4:25 EDT Hilton Álvarez MD CHEMISTRY & BLOOD GAS ORDE RABLES Final Result Performing Organization Address [facility] de Phone Number [facility] [address] [place] [address] * (ABNORMAL) ELECTROLYTES (10/19/2004 4:25 EDT) Sodium 138 136 - 145 mEq/L [facility] Comment:Heparinized plasma. Potassium 2.8(LL) 3.6 - 5.2 mEq/L [facility] Comment: Sample retested, result confirmed Heparinized plasma. Chloride 122(H) 96 - 110 mEq/L [facility] Comment: Sample retested, result confirmed Heparinized plasma. CO2 16(L) 24 - 32 mEq/L [facility] Comment:Heparinized plasma. 10/19/2004 4:25 EDT 10/19/2004 4:25 EDT Hilton Álvarez MD CHEMISTRY & BLOOD GAS ORDEmerald HANNON Final Result Performing Organization Address [facility] de Phone Number [facility] [address] [place] [address] * TOTAL & DIRECT BILIRUBIN (10/19/2004 2:10 EDT) Conjugated Bilirubin 0.0 0.0 - 0.3 mg/dl [facility] Unconjugated Bilirubin 0.3 0.1 - 1.1 mg/dl [facility] Bilirubin, Total <0.5 0.0 - 1.4 mg/dl [facility] 10/19/2004 2:10 EDT 10/19/2004 2:10 EDT Hilton Álvarez MD CHEMISTRY & BLOOD GAS HERMES HANNON Final Result Performing Organization Address [facility] de Phone Number [facility] [address] [place] [address] * PHOSPHORUS (10/19/2004 2:10 EDT) Phosphorus 4.4 2.9 - 5.4 mg/dl [facility] 10/19/2004 2:10 EDT 10/19/2004 2:10 EDT Hilton Álvarez MD CHEMISTRY & BLOOD GAS ORDEmerald HANNON Final Result Performing Organization Address [facility] de Phone Number [facility] [address] [place] [address] * MAGNESIUM (10/19/2004 2:10 EDT) Magnesium 2.4 1.7 - 2.8 mg/dl [facility] 10/19/2004 2:10 EDT 10/19/2004 2:10 EDT Hilton Álvarez MD CHEMISTRY & BLOOD GAS ORDE RABLES Final Result Performing Organization Address [facility] de Phone Number [facility] [address] [place] [address] * ELECTROLYTES (10/19/2004 2:10 EDT) Sodium 137 136 - 145 mEq/L [facility] Potassium 4.1 3.6 - 5.2 mEq/L [facility] Chloride 101 96 - 110 mEq/L [facility] Comment:Sample retested, res ult confirmed CO2 26 24 - 32 mEq/L [facility] 10/19/2004 2:10 EDT 10/19/2004 2:10 EDT Hilton Álvarez MD CHEMISTRY & [facility] Final Result Performing Organization Address [facility] de Phone Number [facility] [address] [place] [address] * CREATININE (10/19/2004 2:10 EDT) Creatinine 0.7 0.6 - 1.2 mg/dl [facility] 10/19/2004 2:10 EDT 10/19/2004 2:10 EDT Hilton Álvarez MD HISTORICAL LAB FOR SQ LOAD Final Result Performing Organization Address [facility] de Phone Number [facility] [address] [place] [address] * (ABNORMAL) HEMAGRAM AND DIFFERENTIAL (10/19/2004 2:10 EDT) WBC 11.74 4.5 - 13.0 K/cmm [facility] RBC 3.81(L) 4.50 - 5.30 M/cmm [facility] Hemoglobin 10.7(L) 13.0 - 16.0 gm/dl [facility] HCT 31.2(L) 37.0 - 49.0 % [facility] MCV 82 78 - 98 fl [facility] MCH 28.1 pg [facility] MCHC 34.4 gm/dl [facility] PLT 375(H) 156 - 312 K/cmm [facility] RDW-CV 15.5 % [facility] Neutrophils 79.0 % [facility] Lymphocytes 20.0 % [facility] Monocytes 1.0 % [facility] ABS Neutrophils 9.27 K/cmm [facility] ABS Lymphs 2.35 K/cmm [facility] ABS Monocytes 0.12 K/cmm [facility] RBC Morphology 1+ Anisocytosis 1+ Polychromasia 1+ Microcytes [facility] Type of Diff: Manual [facility] 10/19/2004 2:10 EDT 10/19/2004 2:10 EDT us Hilton Álvarez MD PACKAGES & DNA PROBE ORDER LYNDSEY Final Result Performing Organization Address [facility] de Phone Number [facility] [address] [place] [address] * (ABNORMAL) CALCIUM (10/19/2004 2:10 EDT) Calcium 8.0(L) 8.5 - 10.5 mg/dl [facility] Calculated Calcium 8.8 8.5 - 10.5 mg/dl [facility] 10/19/2004 2:10 EDT 10/19/2004 2:10 EDT us Hilton Álvarez MD CHEMISTRY & BLOOD GAS ORDE RABLES Final Result Performing Organization Address [facility] de Phone Number [facility] [address] [place] [address] * BUN (10/19/2004 2:10 EDT) BUN 14 8 - 21 mg/dl [facility] 10/19/2004 2:10 EDT 10/19/2004 2:10 EDT Hilton Álvarez MD CHEMISTRY & BLOOD GAS ORDE RIDDHI Final Result Performing Organization Address [facility]/State/ZIP Co de Phone Number [facility] [address] [place] [address] * AST (10/19/2004 2:10 EDT) AST 27 16 - 38 U/L [facility] 10/19/2004 2:10 EDT 10/19/2004 2:10 EDT Hilton Álvarez MD CHEMISTRY & BLOOD GAS ORDE RABREBECA Final Result Performing Organization Address [facility] de Phone Number [facility] [address] [place] [address] * (ABNORMAL) ALT (10/19/2004 2:10 EDT) ALT 50(H) 10 - 45 U/L [facility] 10/19/2004 2:10 EDT 10/19/2004 2:10 EDT Hilton Álvarez MD CHEMISTRY & BLOOD GAS ORDE RABREBECA Final Result Performing Organization Address [facility] de Phone Number [facility] [address] [place] [address] * (ABNORMAL) ALKALINE PHOSPHATASE (10/19/2004 2:10 EDT) Total Alkaline Phosphatase 103(L) 130 - 525 U/L [facility] 10/19/2004 2:10 EDT 10/19/2004 2:10 EDT us Hilton Álvarez MD CHEMISTRY & BLOOD GAS ORDE RABREBECA Final Result Performing Organization Address [facility] de Phone Number [facility] [address] [place] [address] * (ABNORMAL) ELECTROLYTES (10/19/2004 0:12 EDT) Sodium [...] ORDE RABLES Final Result Performing Organization Address [facility] de Phone Number [facility] [address] [place] [address] * SODIUM (10/18/2004 22:11 EDT) Sodium 137 136 - 145 mEq/L [facility] 10/18/2004 22:1 1 EDT 10/18/2004 22:11 EDT Hilton Álvarez MD CHEMISTRY & BLOOD GAS ORDE RABLES Final Result Performing Organization Address [facility] de Phone Number [facility] [address] [place] [address] * (ABNORMAL) ELECTROLYTES (10/18/2004 20:13 EDT) Sodium 132(L) 136 - 145 mEq/L [facility] Potassium 3.5(L) 3.6 - 5.2 mEq/L [facility] Chloride 96 96 - 110 mEq/L [facility] CO2 25 24 - 32 mEq/L [facility] 10/18/2004 20:1 3 EDT 10/18/2004 20:13 EDT Hilton Álvarez MD CHEMISTRY & BLOOD GAS ORDE RABLES Final Result Performing Organization Address [facility] de Phone Number [facility] [address] [place] [address] * GLUCOSE, GLUCOMETER (10/18/2004 20:06 EDT) Glucose, Fingerstick 89 70 - 110 mg/dl [facility] Rn Endocrinology ID [id number] Test Performed by Nursing Services [facility] 10/18/2004 20:0 6 EDT 10/19/2004 0:23 EDT Hilton Álvarez MD CHEMISTRY & BLOOD GAS ORDE RABLES Final Result Performing Organization Address [facility] de Phone Number [facility] [address] [place] [address] * (ABNORMAL) SODIUM (10/18/2004 18:15 EDT) Sodium 128(L) 136 - 145 mEq/L [facility] 10/18/2004 18:1 5 EDT 10/18/2004 18:15 EDT Hilton Álvarez MD CHEMISTRY & BLOOD GAS ORDE RABLES Final Result Performing Organization Address [facility] de Phone Number [facility] [address] [place] [address] * (ABNORMAL) ELECTROLYTES (10/18/2004 16:08 EDT) Sodium 128(L) 136 - 145 mEq/L [facility] Potassium 3.7 3.6 - 5.2 mEq/L [facility] Chloride 93(L) 96 - 110 mEq/L [facility] CO2 27 24 - 32 mEq/L [facility] 10/18/2004 16:0 8 EDT 10/18/2004 16:08 EDT Hilton Álvarez MD CHEMISTRY & BLOOD GAS ORDE RABLES Final Result Performing Organization Address [facility] de Phone Number [facility] [address] [place] [address] * GLUCOSE, GLUCOMETER (10/18/2004 16:00 EDT) Glucose, Fingerstick 106 70 - 110 mg/dl [facility] Rn Endocrinology [place] [id number] Test Performed by Nursing Services [facility] 10/18/2004 16:0 0 EDT 10/19/2004 0:23 EDT Hilton Álvarez MD CHEMISTRY & BLOOD GAS ORDE RABLES Final Result Performing Organization Address [facility] Phone Number [facility] [address] [place] [address] * (ABNORMAL) SODIUM (10/18/2004 14:37 EDT) Sodium 128(L) 136 - 145 mEq/L [facility] 10/18/2004 14:3 7 EDT 10/18/2004 14:37 EDT Hilton Álvarez MD CHEMISTRY & BLOOD GAS ORDE RABLES Final Result Performing Organization Address [facility] Phone Number [facility] [address] [place] [address] * GLUCOSE, GLUCOMETER (10/18/2004 11:59 EDT) Glucose, Fingerstick 98 70 - 110 mg/dl [facility] Rn Endocrinology ID [id number] Test Performed by Nursing Services [facility] 10/18/2004 11:5 9 EDT 10/19/2004 0:22 EDT Hilton Álvarez MD CHEMISTRY & BLOOD GAS ORDE RABLES Final Result Performing Organization Address [facility] de Phone Number [facility] [address] [place] [address] * (ABNORMAL) ELECTROLYTES (10/18/2004 11:56 EDT) Sodium 127(L) 136 - 145 mEq/L [facility] Potassium 3.9 3.6 - 5.2 mEq/L [facility] Chloride 92(L) 96 - 110 mEq/L [facility] CO2 29 24 - 32 mEq/L [facility] 10/18/2004 11:5 6 EDT 10/18/2004 11:56 EDT Hilton Álvarez MD CHEMISTRY & BLOOD GAS ORDE RABLES Final Result Performing Organization Address [facility] de Phone Number [facility] [address] [place] [address] * (ABNORMAL) GLUCOSE, GLUCOMETER (10/18/2004 10:07 EDT) Glucose, Fingerstick 130(H) 70 - 110 mg/dl [facility] Rn Endocrinology ID [id number] Test Performed by Nursing Services [facility] 10/18/2004 10:0 7 EDT 10/19/2004 0:21 EDT Hilton Álvarez MD CHEMISTRY & BLOOD GAS ORDE RABLES Final Result Performing Organization Address [facility] de Phone Number [facility] [address] [place] [address] * (ABNORMAL) SODIUM (10/18/2004 10:06 EDT) Sodium 128(L) 136 - 145 mEq/L [facility] Comment:Heparinized plasma. 10/18/2004 10:0 6 EDT 10/18/2004 10:06 EDT Hilton Álvarez MD CHEMISTRY & BLOOD GAS ORDE RABLES Final Result Performing Organization Address [facility] de Phone Number [facility] [address] [place] [address] * (ABNORMAL) ELECTROLYTES (10/18/2004 8:18 EDT) Sodium 130(L) 136 - 145 mEq/L [facility] Potassium 3.6 3.6 - 5.2 mEq/L [facility] Chloride 92(L) 96 - 110 mEq/L [facility] CO2 30 24 - 32 mEq/L [facility] 10/18/2004 8:18 EDT 10/18/2004 8:18 EDT Hilton Álvarez MD CHEMISTRY & BLOOD GAS ORDE RIDDHI Final Result Performing Organization Address [facility] de Phone Number [facility] [address] [place] [address] * UA REFLEX (10/18/2004 7:59 EDT) UA Billing Microscopic not indicated. [facility] 10/18/2004 7:59 EDT 10/18/2004 7:59 EDT Hilton Álvarez MD URINALYSIS ORDERABLES Jacquie l Result Performing Organization Address [facility] Phone Number [facility] [address] [place] [address] * URINALYSIS (10/18/2004 7:59 EDT) Color, UA Yellow [facility] Clarity, UA Cloudy [facility] Glucose, UA Norm NORM [facility] Bilirubin, UA Neg NEG [facility] Ketones, UA Neg NEG [facility] Specific [place], Urine 1.020 1.005 - 1.02 [facility] Blood, UA Neg NEG [facility] pH, UA 8.0 5.0 - 9.0 [facility] Protein, UA Neg NEG [facility] Urobilinogen, UA Norm NORM mg/dL [facility] Nitrite, UA Neg NEG [facility] Leuk Esterase Neg NEG [facility] 10/18/2004 7:59 EDT 10/18/2004 7:59 EDT Hilton Álvarez MD URINALYSIS ORDERABLES Jacquie l Result Performing Organization Address [facility] de Phone Number [facility] [address] [place] [address] * CULTURE IF UA POSITIVE (10/18/2004 7:59 EDT) Culture if Indicated Culture not indicated by urinalysis results. [facility] 10/18/2004 7:59 EDT 10/18/2004 7:59 EDT Hilton Álvarez MD MICROBIOLOGY - GENERAL ORD ERABLES Final Result Performing Organization Address [facility] de Phone Number [facility] [address] [place] [address] * (ABNORMAL) SODIUM (10/18/2004 6:38 EDT) Sodium 130(L) 136 - 145 mEq/L [facility] Comment:Heparinized plasma. 10/18/2004 6:38 EDT 10/18/2004 6:38 EDT Hilton Álvarez MD CHEMISTRY & BLOOD GAS ORDE RABLES Final Result Performing Organization Address [facility] de Phone Number [facility] [address] [place] [address] * TOTAL & DIRECT BILIRUBIN (10/18/2004 4:23 EDT) Conjugated Bilirubin 0.0 0.0 - 0.3 mg/dl [facility] Unconjugated Bilirubin 0.2 0.1 - 1.1 mg/dl [facility] Bilirubin, Total <0.5 0.0 - 1.4 mg/dl [facility] 10/18/2004 4:23 EDT 10/18/2004 4:23 EDT Hilton Álvarez MD CHEMISTRY & BLOOD GAS ORDE RABLES Final Result Performing Organization Address [facility] de Phone Number [facility] [address] [place] [address] * PHOSPHORUS (10/18/2004 4:23 EDT) Phosphorus 3.3 2.9 - 5.4 mg/dl [facility] 10/18/2004 4:23 EDT 10/18/2004 4:23 EDT Hilton Álvarez MD CHEMISTRY & BLOOD GAS ORDE RABREBECA Final Result Performing Organization Address [facility] de Phone Number [facility] [address] [place] [address] * MAGNESIUM (10/18/2004 4:23 EDT) Magnesium 2.1 1.7 - 2.8 mg/dl [facility] 10/18/2004 4:23 EDT 10/18/2004 4:23 EDT Hilton Álvarez MD CHEMISTRY & BLOOD GAS ORDE RABLES Final Result Performing Organization Address [facility] Phone Number [facility] [address] [place] [address] * (ABNORMAL) ELECTROLYTES (10/18/2004 4:23 EDT) Sodium 132(L) 136 - 145 mEq/L [facility] Potassium 3.6 3.6 - 5.2 mEq/L [facility] Chloride 94(L) 96 - 110 mEq/L [facility] CO2 30 24 - 32 mEq/L [facility] 10/18/2004 4:23 EDT 10/18/2004 4:23 EDT Hilton Álvarez MD CHEMISTRY & BLOOD GAS ORDE RABLES Final Result Performing Organization Address [facility] de Phone Number [facility] [address] [place] [address] * CREATININE (10/18/2004 4:23 EDT) Creatinine 0.6 0.6 - 1.2 mg/dl [facility] 10/18/2004 4:23 EDT 10/18/2004 4:23 EDT Hilton Álvarez MD HISTORICAL LAB FOR SQ LOAD Final Result Performing Organization Address [facility] de Phone Number [facility] [address] [place] [address] * (ABNORMAL) HEMAGRAM AND DIFFERENTIAL (10/18/2004 4:23 EDT) Pathologist [facility] WBC 10.96 4.5 - 13.0 K/cmm [facility] [...] 10/18/2004 4:23 EDT us Hilton Álvarez MD PACKAGES & DNA PROBE ORDER LYNDSEY Final Result [facility] [address] [place] [address] * (ABNORMAL) CALCIUM (10/18/2004 4:23 EDT) Calcium 7.9(L) 8.5 - 10.5 mg/dl [facility] Calculated Calcium 9.0 8.5 - 10.5 mg/dl [facility] 10/18/2004 4:23 EDT 10/18/2004 4:23 EDT Hilton Álvarez MD CHEMISTRY & BLOOD GAS ORDE RABLES Final Result Performing Organization Address [facility] de Phone Number [facility] [address] [place] [address] * BUN (10/18/2004 4:23 EDT) BUN 16 8 - 21 mg/dl [facility] 10/18/2004 4:23 EDT 10/18/2004 4:23 EDT us Hilton Álvarez MD CHEMISTRY & BLOOD GAS ORDE RABLES Final Result Performing Organization Address [facility] de Phone Number [facility] [address] [place] [address] * AST (10/18/2004 4:23 EDT) AST 24 16 - 38 U/L [facility] 10/18/2004 4:23 EDT 10/18/2004 4:23 EDT us Hilton Álvarez MD CHEMISTRY & BLOOD GAS ORDE RABLES Final Result Performing Organization Address [facility] de Phone Number [facility] [address] [place] [address] * (ABNORMAL) ALT (10/18/2004 4:23 EDT) ALT 55(H) 10 - 45 U/L [facility] 10/18/2004 4:23 EDT 10/18/2004 4:23 EDT us Hilton Álvarez MD CHEMISTRY & BLOOD GAS ORDE RABLES Final Result Performing Organization Address [facility] de Phone Number [facility] [address] [place] [address] * (ABNORMAL) ALKALINE PHOSPHATASE (10/18/2004 4:23 EDT) Total Alkaline Phosphatase 100(L) 130 - 525 U/L [facility] 10/18/2004 4:23 EDT 10/18/2004 4:23 EDT Hilton Álvarez MD CHEMISTRY & BLOOD GAS ORDE RABLES Final Result Performing Organization Address [facility] de Phone Number [facility] [address] [place] [address] * (ABNORMAL) SODIUM (10/18/2004 2:13 EDT) Sodium 132(L) 136 - 145 mEq/L [facility] 10/18/2004 2:13 EDT 10/18/2004 2:13 EDT Hilton Álvarez MD CHEMISTRY & BLOOD GAS ORDE RABLES Final Result Performing Organization Address [facility] Phone Number [facility] [address] [place] [address] * (ABNORMAL) SODIUM (10/18/2004 1:00 EDT) Sodium 133(L) 136 - 145 mEq/L [facility] 10/18/2004 1:00 EDT 10/18/2004 1:00 EDT Hilton Álvarez MD CHEMISTRY & BLOOD GAS ORDE RABLES Final Result Performing Organization Address [facility] de Phone Number [facility] [address] [place] [address] * (ABNORMAL) BLOOD GAS, EG6 ISTAT (10/18/2004 [...] [facility] Sample Type Venous [facility] accounts payable accountant ID [id number] Test Performed by Respiratory [facility] 10/18/2004 0:10 EDT 10/18/2004 0:06 EDT Hilton Álvarez MD CHEMISTRY & BLOOD GAS ORDE RABREBECA Final Result Performing Organization Address [facility] de Phone Number [facility] [address] [place] [address] * OSMOLALITY (10/18/2004 0:07 EDT) Osmolality Cintia 287 MOS/KG [facility] 10/18/2004 0:07 EDT 10/18/2004 0:07 EDT Hilton Álvarez MD CHEMISTRY & BLOOD GAS ORDE RABLES Final Result Performing Organization Address [facility] de Phone Number [facility] [address] [place] [address] * (ABNORMAL) ELECTROLYTES (10/18/2004 0:07 EDT) Sodium 135(L) 136 - 145 mEq/L [facility] Potassium 3.5(L) 3.6 - 5.2 mEq/L [facility] Chloride 99 96 - 110 mEq/L [facility] CO2 27 24 - 32 mEq/L [facility] 10/18/2004 0:07 EDT 10/18/2004 0:07 EDT us Hilton Álvarez MD CHEMISTRY & BLOOD GAS ORDE RABLES Final Result Performing Organization Address [facility] de Phone Number [facility] [address] [place] [address] * (ABNORMAL) GLUCOSE, GLUCOMETER (10/18/2004 0:06 EDT) Pathologist [facility] Glucose, Fingerstick 112(H) 70 - 110 mg/dl [facility] Rn Endocrinology [place] [id number] Test Performed by Nursing Services [facility] 10/18/2004 0:06 EDT 10/19/2004 0:19 EDT Hilton Álvarez MD CHEMISTRY & BLOOD GAS ORDE RABLES Final Result Performing Organization Address [facility] de Phone Number [facility] [address] [place] [address] * (ABNORMAL) ELECTROLYTES (10/17/2004 22:42 EDT) Pathologist [facility] Sodium 125(L) 136 - 145 mEq/L ANISHA [...] ORDE RABLES Final Result Performing Organization Address [facility] de Phone Number [facility] [address] [place] [address] * OSMOLALITY (10/17/2004 21:34 EDT) Pathologist [facility] Osmolality Cintia 342 MOS/KG [facility] Comment:Markedly lipemic 10/17/2004 21:3 4 EDT 10/17/2004 21:34 EDT Hilton Álvarez MD CHEMISTRY & BLOOD GAS ORDE RABLES Final Result Performing Organization Address [facility] de Phone Number [facility] [address] [place] [address] * (ABNORMAL) ELECTROLYTES (10/17/2004 21:34 EDT) Sodium [...] - 32 mEq/L [facility] Comment: Sample retested, result confirmed Markedly lipemic 10/17/2004 21:3 4 EDT 10/17/2004 21:34 EDT Hilton Álvarez MD CHEMISTRY & BLOOD GAS ORDE [facility] Final Result Performing Organization Address [facility] de Phone Number [facility] [address] [place] [address] * OSMOLALITY (10/17/2004 15:50 EDT) Osmolality Cintia 296 MOS/KG [facility] 10/17/2004 15:5 0 EDT 10/17/2004 15:51 EDT Hilton Álvarez MD CHEMISTRY & BLOOD GAS ORDE RABLES Final Result Performing Organization Address [facility] de Phone Number [facility] [address] [place] [address] * (ABNORMAL) ELECTROLYTES (10/17/2004 15:50 EDT) Sodium 141 136 - 145 mEq/L [facility] Potassium 3.2(L) 3.6 - 5.2 mEq/L [facility] Chloride 108 96 - 110 mEq/L [facility] CO2 25 24 - 32 mEq/L [facility] 10/17/2004 15:5 0 EDT 10/17/2004 15:51 EDT Hilton Álvarez MD CHEMISTRY & BLOOD GAS ORDE RABLES Final Result Performing Organization Address [facility] de Phone Number [facility] [address] [place] [address] * OSMOLALITY, URINE (10/17/2004 11:36 EDT) Osmolality, Ur 532 MOS/KG HOLLY [facility] 10/17/2004 11:3 6 EDT 10/17/2004 11:37 EDT Hilton Álvarez MD URINALYSIS ORDERABLES Jacquie l Result Performing Organization Address [facility] de Phone Number [facility] [address] [place] [address] * SODIUM, URINE RANDOM (10/17/2004 11:36 EDT) Sodium, Ur 199.0 mEq/L [facility] 10/17/2004 11:3 6 EDT 10/17/2004 11:37 EDT Hilton Álvarez MD URINALYSIS ORDERABLES Jacquie l Result Performing Organization Address [facility] de Phone Number [facility] [address] [place] [address] * OSMOLALITY (10/17/2004 11:35 EDT) Osmolality Cintia 305 MOS/KG [facility] 10/17/2004 11:3 5 EDT 10/17/2004 11:36 EDT Hilton Álvarez MD CHEMISTRY & BLOOD GAS ORDE RABLES Final Result Performing Organization Address [facility] de Phone Number [facility] [address] [place] [address] * (ABNORMAL) ELECTROLYTES (10/17/2004 11:35 EDT) Sodium 142 136 - 145 mEq/L [facility] Comment:Heparinized plasma. Potassium 3.1(L) 3.6 - 5.2 mEq/L [facility] Comment:Heparinized plasma. Chloride 116(H) 96 - 110 mEq/L [facility] Comment:Heparinized plasma. CO2 23(L) 24 - 32 mEq/L [facility] Comment:Heparinized plasma. 10/17/2004 11:3 5 EDT 10/17/2004 11:36 EDT Hilton Álvarez MD CHEMISTRY & BLOOD GAS ORDEmerald [facility] Final Result [facility] [address] [place] [address] * CT HEAD WO CONTRAST (10/17/2004 11:04 [...] sinus, likely secondary to most recent surgery. /pitos us Hilton Álvarez MD IMG CT ORDERABLES Final Re sult * IR CHANGE PICC (10/17/2004 11:00 EDT) Anatomical Region Laterality Modality Other 10/17/2004 11:0 0 EDT Impressions 03/06/2009 9:00 EDT IMPRESSION: 1. Successful change of PICC line to double-lumen. 2. Fluoroscopic guidance used. /[facility] Narrative 03/06/2009 9:00 EDT S/P CRANI S/L [...] to double-lumen. 2. Fluoroscopic guidance used. /guillermo Hilton Álvarez MD IMG IR ORDERABLES Final Re sult * OSMOLALITY, URINE (10/17/2004 8:00 EDT) Osmolality, Ur 209 MOS/KG HOLLY [facility] 10/17/2004 8:00 EDT 10/17/2004 8:04 EDT Hilton Álvarez MD URINALYSIS ORDERABLES Jacquie l Result Performing Organization Address [facility] de Phone Number [facility] [address] [place] [address] * SODIUM, URINE RANDOM (10/17/2004 8:00 EDT) Sodium, Ur 66.0 mEq/L [facility] 10/17/2004 8:00 EDT 10/17/2004 8:04 EDT Hilton Álvarez MD URINALYSIS ORDERABLES Jacquie l Result Performing Organization Address [facility] Phone Number [facility] [address] [place] [address] * OSMOLALITY (10/17/2004 8:00 EDT) Osmolality Cintia 304 MOS/KG [facility] 10/17/2004 8:00 EDT 10/17/2004 8:05 EDT Hilton Álvarez MD CHEMISTRY & BLOOD GAS ORDE [facility] Final Result Performing Organization Address [facility] de Phone Number [facility] [address] [place] [address] * (ABNORMAL) ELECTROLYTES (10/17/2004 8:00 EDT) Sodium 143 136 - 145 mEq/L [facility] Potassium 3.6 3.6 - 5.2 mEq/L [facility] Chloride 111(H) 96 - 110 mEq/L [facility] CO2 26 24 - 32 mEq/L [facility] 10/17/2004 8:00 EDT 10/17/2004 8:05 EDT Hilton Álvarez MD CHEMISTRY & BLOOD GAS HERMES HANNON Final Result Performing Organization Address [facility] de Phone Number [facility] [address] [place] [address] * SODIUM (10/17/2004 6:13 EDT) Sodium 142 136 - 145 mEq/L [facility] 10/17/2004 6:13 EDT 10/17/2004 6:13 EDT Hilton Álvarez MD CHEMISTRY & BLOOD GAS ORDEmerald HANNON Final Result Performing Organization Address [facility] Phone Number [facility] [address] [place] [address] * OSMOLALITY, URINE (10/17/2004 3:58 EDT) Osmolality, Ur 578 MOS/KG MELONIETEA [facility] 10/17/2004 3:58 EDT 10/17/2004 3:58 EDT Hilton Álvarez MD URINALYSIS ORDERABLES Jacquie l Result Performing Organization Address [facility] Phone Number [facility] [address] [place] [address] * SODIUM, URINE RANDOM (10/17/2004 3:58 EDT) Sodium, Ur 175.0 mEq/L [facility] 10/17/2004 3:58 EDT 10/17/2004 3:58 EDT us Hilton Álvarez MD URINALYSIS ORDERABLES Jacquie l Result Performing Organization Address [facility] Phone Number [facility] [address] [place] [address] * TOTAL BILIRUBIN (10/17/2004 3:57 EDT) Bilirubin, Total <0.5 0.0 - 1.4 mg/dl [facility] 10/17/2004 3:57 EDT 10/17/2004 3:57 EDT Hilton Álvarez MD CHEMISTRY & BLOOD GAS ORDE RABLES Final Result Performing Organization Address [facility] Phone Number [facility] [address] [place] [address] * GLUCOSE, SERUM (10/17/2004 3:57 EDT) Glucose, Serum 96 70 - 110 mg/dl [facility] 10/17/2004 3:57 EDT 10/17/2004 3:57 EDT Hilton Álvarez MD CHEMISTRY & BLOOD GAS ORDE RABLES Final Result Performing Organization Address [facility] de Phone Number [facility] [address] [place] [address] * PTT (10/17/2004 3:57 EDT) Pathologist [facility] PTT 26 23 - 34 secs [facility] Comment:Therapeutic Heparin range: 72-120 seconds 10/17/2004 3:57 EDT 10/17/2004 3:57 EDT Hilton Álvarez MD HEMATOLOGY & PF4 ORDERABLE S Final Result Performing Organization Address [facility] Phone Number ANIS[facility] [address] [place] [address] * (ABNORMAL) PROTIME (10/17/2004 3:57 EDT) Pro Time 14.9(H) 12.3 - 14.7 secs [facility] I.N.R. 1.1 0.9 - 1.1 Ratio [facility] Comment: Moderate Intensity Coumadin INR = 2.0-3.0 Adjustments in anticoagulant therapy dose should be based upon the INR and NOT the Pro Time. 10/17/2004 3:57 EDT 10/17/2004 3:57 EDT Hilton Álvarez MD HEMATOLOGY & PF4 ORDERABLE S Final Result Performing Organization Address [facility] de Phone Number [facility] [address] [place] [address] * PHOSPHORUS (10/17/2004 3:57 EDT) Phosphorus 3.8 2.9 - 5.4 mg/dl [facility] 10/17/2004 3:57 EDT 10/17/2004 3:57 EDT Hilton Álvarez MD CHEMISTRY & BLOOD GAS ORDE RABLES Final Result Performing Organization Address [facility] de Phone Number [facility] [address] [place] [address] * OSMOLALITY (10/17/2004 3:57 EDT) Osmolality Cintia 296 MOS/KG SH[facility] 10/17/2004 3:57 EDT 10/17/2004 3:57 EDT Hilton Álvarez MD CHEMISTRY & BLOOD GAS ORDE RABLES Final Result Performing Organization Address [facility] de Phone Number [facility] [address] [place] [address] * BILIRUBIN (10/17/2004 3:57 EDT) Conjugated Bilirubin 0.0 0.0 - 0.3 mg/dl [facility] Unconjugated Bilirubin 0.2 0.1 - 1.1 mg/dl [facility] Calculated Total Bilirubin 0.2 0.0 - 1.4 mg/dl [facility] 10/17/2004 3:57 EDT 10/17/2004 3:57 EDT Hilton Álvarez MD CHEMISTRY & BLOOD GAS ORDE RABLES Final Result Performing Organization Address [facility] de Phone Number [facility] [address] [place] [address] * ELECTROLYTES (10/17/2004 3:57 EDT) Sodium 141 136 - 145 mEq/L [facility] Potassium 3.7 3.6 - 5.2 mEq/L [facility] Chloride 105 96 - 110 mEq/L [facility] CO2 28 24 - 32 mEq/L [facility] 10/17/2004 3:57 EDT 10/17/2004 3:57 EDT us Hilton Álvarez MD CHEMISTRY & BLOOD GAS ORDE RABREBECA Final Result Performing Organization Address [facility] de Phone Number [facility] [address] [place] [address] * BILIRUBIN DIRECT/INDIRECT (10/17/2004 3:57 EDT) Conjugated Bilirubin 0.0 - 0.3 mg/dl [facility] Unconjugated Bilirubin 0.1 - 1.1 mg/dl [facility] 10/17/2004 3:57 EDT 10/17/2004 3:57 EDT Hilton Álvarez MD CHEMISTRY & BLOOD GAS ORDE RABLES Final Result Performing Organization Address [facility] de Phone Number [facility] [address] [place] [address] * CREATININE (10/17/2004 3:57 EDT) Creatinine 0.8 0.6 - 1.2 mg/dl [facility] 10/17/2004 3:57 EDT 10/17/2004 3:57 EDT Hilton Álvarez MD HISTORICAL LAB FOR SQ LOAD Final Result Performing Organization Address [facility] de Phone Number [facility] [address] [place] [address] * (ABNORMAL) HEMAGRAM AND DIFFERENTIAL (10/17/2004 3:57 [...] of Diff: Automated [facility] 10/17/2004 3:57 EDT 10/17/2004 3:57 EDT us Hilton Álvarez MD PACKAGES & DNA PROBE ORDER LYNDSEY Final Result [facility] [address] [place] [address] * (ABNORMAL) CALCIUM (10/17/2004 3:57 EDT) Calcium 7.9(L) 8.5 - 10.5 mg/dl [facility] Calculated Calcium 9.4 8.5 - 10.5 mg/dl [facility] 10/17/2004 3:57 EDT 10/17/2004 3:57 EDT us Hilton Álvarez MD CHEMISTRY & BLOOD GAS ORDE RABLES Final Result [facility] [address] [place] [address] * BUN (10/17/2004 3:57 EDT) BUN 17 8 - 21 mg/dl [facility] 10/17/2004 3:57 EDT 10/17/2004 3:57 EDT us Hilton Álvarez MD CHEMISTRY & BLOOD GAS ORDE RABLES Final Result Performing Organization Address [facility] de Phone Number [facility] [address] [place] [address] * AST (10/17/2004 3:57 EDT) AST 27 16 - 38 U/L [facility] 10/17/2004 3:57 EDT 10/17/2004 3:57 EDT us Hilton Álvarez MD CHEMISTRY & BLOOD GAS ORDE RABREBECA Final Result Performing Organization Address [facility] de Phone Number [facility] [address] [place] [address] * (ABNORMAL) ALT (10/17/2004 3:57 EDT) ALT 59(H) 10 - 45 U/L [facility] 10/17/2004 3:57 EDT 10/17/2004 3:57 EDT us Hilton Álvarez MD CHEMISTRY & BLOOD GAS ORDE RABLES Final Result Performing Organization Address [facility] de Phone Number [facility] [address] [place] [address] * (ABNORMAL) ALKALINE PHOSPHATASE (10/17/2004 3:57 EDT) Total Alkaline Phosphatase 91(L) 130 - 525 U/L [facility] 10/17/2004 3:57 EDT 10/17/2004 3:57 EDT Hilton Álvarez MD CHEMISTRY & BLOOD GAS HERMES HANNON Final Result Performing Organization Address [facility] Phone Number [facility] [address] [place] [address] * SODIUM (10/17/2004 1:56 EDT) Sodium 141 136 - 145 mEq/L [facility] 10/17/2004 1:56 EDT 10/17/2004 1:56 EDT Hilton Álvarez MD CHEMISTRY & BLOOD GAS HERMES HANNON Final Result Performing Organization Address [facility] Phone Number [facility] [address] [place] [address] * OSMOLALITY, URINE (10/17/2004 0:10 EDT) Osmolality, Ur 620 MOS/KG [facility] 10/17/2004 0:10 EDT 10/17/2004 0:10 EDT Hilton Álvarez MD URINALYSIS ORDERABLES Jacquie l Result Performing Organization Address [facility] Phone Number [facility] [address] [place] [address] * SODIUM, URINE RANDOM (10/17/2004 0:10 EDT) Sodium, Ur 214.0 mEq/L [facility] 10/17/2004 0:10 EDT 10/17/2004 0:10 EDT us Hilton Álvarez MD URINALYSIS ORDERABLES Jacquie l Result Performing Organization Address [facility] Phone Number [facility] [address] [place] [address] * OSMOLALITY (10/17/2004 0:09 EDT) Osmolality Cintia 295 MOS/KG SHERI ALMEIDA [facility] 10/17/2004 0:09 EDT 10/17/2004 0:09 EDT Hilton Álvarez MD CHEMISTRY & BLOOD GAS ORDE RABLES Final Result Performing Organization Address [facility] de Phone Number [facility] [address] [place] [address] * ELECTROLYTES (10/17/2004 0:09 EDT) Sodium 142 136 - 145 mEq/L [facility] Potassium 3.8 3.6 - 5.2 mEq/L [facility] Chloride 109 96 - 110 mEq/L [facility] CO2 28 24 - 32 mEq/L [facility] 10/17/2004 0:09 EDT 10/17/2004 0:09 EDT Hilton Álvarez MD CHEMISTRY & BLOOD GAS ORDE RABLES Final Result Performing Organization Address [facility] de Phone Number [facility] [address] [place] [address] * SODIUM (10/16/2004 21:56 EDT) Sodium 141 136 - 145 mEq/L [facility] 10/16/2004 21:5 6 EDT 10/16/2004 21:56 EDT Hilton Álvarez MD CHEMISTRY & BLOOD GAS ORDE RABLES Final Result Performing Organization Address [facility] de Phone Number [facility] [address] [place] [address] * SODIUM, URINE RANDOM (10/16/2004 20:15 EDT) Sodium, Ur 190.0 mEq/L [facility] 10/16/2004 20:1 5 EDT 10/16/2004 20:15 EDT Hilton Álvarez MD URINALYSIS ORDERABLES Jacquie l Result Performing Organization Address [facility]/ZIP Co de Phone Number [facility] [address] [place] [address] * OSMOLALITY (10/16/2004 20:05 EDT) Osmolality Cintia 295 MOS/KG SHERI ALMEIDA [facility] 10/16/2004 20:0 5 EDT 10/16/2004 20:41 EDT Hilton Álvarez MD CHEMISTRY & BLOOD GAS ORDE RABREBECA Final Result Performing Organization Address [facility] de Phone Number [facility] [address] [place] [address] * ELECTROLYTES (10/16/2004 20:05 EDT) Sodium 143 136 - 145 mEq/L [facility] Potassium 3.7 3.6 - 5.2 mEq/L [facility] Chloride 108 96 - 110 mEq/L [facility] CO2 29 24 - 32 mEq/L [facility] 10/16/2004 20:0 5 EDT 10/16/2004 20:41 EDT Hilton Álvarez MD CHEMISTRY & BLOOD GAS ORDE RABLES Final Result Performing Organization Address [facility] de Phone Number [facility] [address] [place] [address] * SODIUM (10/16/2004 18:07 EDT) Sodium 144 136 - 145 mEq/L [facility] 10/16/2004 18:0 7 EDT 10/16/2004 18:07 EDT Hilton Álvarez MD CHEMISTRY & BLOOD GAS ORDE RABLES Final Result Performing Organization Address [facility]IP [facility] de Phone Number [facility] [address] [place] [address] * OSMOLALITY, URINE (10/16/2004 16:27 EDT) Osmolality, Ur 338 MOS/KG HO[facility] 10/16/2004 16:2 7 EDT 10/16/2004 16:27 EDT us Hilton Álvarez MD URINALYSIS ORDERABLES Jacquie l Result Performing Organization Address [facility] de Phone Number [facility] [address] [place] [address] * SODIUM, URINE RANDOM (10/16/2004 16:27 EDT) Sodium, Ur 100.0 mEq/L [facility] 10/16/2004 16:2 7 EDT 10/16/2004 16:27 EDT Hilton Álvarez MD URINALYSIS ORDERABLES Jacquie l Result Performing Organization Address [facility] de Phone Number [facility] [address] [place] [address] * GLUCOSE, SERUM (10/16/2004 16:27 EDT) Glucose, Serum 95 70 - 110 mg/dl [facility] 10/16/2004 16:2 7 EDT 10/16/2004 16:27 EDT us Hilton Álvarez MD CHEMISTRY & BLOOD GAS ORDE RABLES Final Result Performing Organization Address [facility] de Phone Number [facility] [address] [place] [address] * OSMOLALITY (10/16/2004 16:27 EDT) Osmolality Cintia 297 MOS/KG [facility] 10/16/2004 16:2 7 EDT 10/16/2004 16:27 EDT us Hilton Álvarez MD CHEMISTRY & BLOOD GAS ORDE RABLES Final Result Performing Organization Address [facility] de Phone Number [facility] [address] [place] [address] * SODIUM (10/16/2004 16:27 EDT) Sodium 136 - 145 mEq/L [facility] 10/16/2004 16:2 7 EDT 10/16/2004 16:27 EDT Hilton Álvarez MD CHEMISTRY & BLOOD GAS ORDE RABLES Final Result Performing Organization Address [facility] de Phone Number [facility] [address] [place] [address] * ELECTROLYTES (10/16/2004 16:27 EDT) Sodium 143 136 - 145 mEq/L [facility] Potassium 3.8 3.6 - 5.2 mEq/L [facility] Chloride 109 96 - 110 mEq/L [facility] CO2 28 24 - 32 mEq/L [facility] 10/16/2004 16:2 7 EDT 10/16/2004 16:27 EDT Hilton Álvarez MD CHEMISTRY & BLOOD GAS ORDE RABLES Final Result Performing Organization Address [facility] de Phone Number [facility] [address] [place] [address] * SODIUM (10/16/2004 14:14 EDT) Sodium 141 136 - 145 mEq/L [facility] 10/16/2004 14:1 4 EDT 10/16/2004 14:14 EDT Hilton Álvarez MD CHEMISTRY & BLOOD GAS ORDE RABLES Final Result Performing Organization Address [facility] de Phone Number [facility] [address] [place] [address] * OSMOLALITY, URINE (10/16/2004 12:14 EDT) Osmolality, Ur 191 MOS/KG [facility] 10/16/2004 12:1 4 EDT 10/16/2004 12:14 EDT Hilton Álvarez MD URINALYSIS ORDERABLES Jacquie l Result Performing Organization Address [facility] de Phone Number [facility] [address] [place] [address] * SODIUM, URINE RANDOM (10/16/2004 12:14 EDT) Sodium, Ur 27.0 mEq/L [facility] 10/16/2004 12:1 4 EDT 10/16/2004 12:14 EDT Hilton Álvarez MD URINALYSIS ORDERABLES Jacquie l Result Performing Organization Address [facility] de Phone Number [facility] [address] [place] [address] * OSMOLALITY (10/16/2004 12:13 EDT) Osmolality Cintia 298 MOS/KG SH[facility] 10/16/2004 12:1 3 EDT 10/16/2004 12:13 EDT Hilton Álvarez MD CHEMISTRY & BLOOD GAS ORDE RABLES Final Result Performing Organization Address [facility] de Phone Number [facility] [address] [place] [address] * ELECTROLYTES (10/16/2004 12:13 EDT) Sodium 138 136 - 145 mEq/L [facility] Potassium 3.6 3.6 - 5.2 mEq/L [facility] Chloride 103 96 - 110 mEq/L [facility] CO2 27 24 - 32 mEq/L [facility] 10/16/2004 12:1 3 EDT 10/16/2004 12:13 EDT us Hilton Álvarez MD CHEMISTRY & BLOOD GAS ORDE RABLES Final Result Performing Organization Address [facility] de Phone Number [facility] [address] [place] [address] * (ABNORMAL) SODIUM (10/16/2004 10:21 EDT) Sodium 135(L) 136 - 145 mEq/L [facility] Comment:Heparinized plasma. 10/16/2004 10:2 1 EDT 10/16/2004 10:21 EDT Hilton Álvarez MD CHEMISTRY & BLOOD GAS ORDEmerald HANNON Final Result Performing Organization Address [facility] de Phone Number [facility] [address] [place] [address] * OSMOLALITY, URINE (10/16/2004 8:22 EDT) Osmolality, Ur 792 MOS/KG HOLLY [facility] 10/16/2004 8:22 EDT 10/16/2004 8:22 EDT Hilton Álvarez MD URINALYSIS ORDERABLES Jacquie l Result Performing Organization Address [facility] de Phone Number [facility] [address] [place] [address] * SODIUM, URINE RANDOM (10/16/2004 8:22 EDT) Sodium, Ur 186.0 mEq/L [facility] 10/16/2004 8:22 EDT 10/16/2004 8:22 EDT Hilton Álvarez MD URINALYSIS ORDERABLES Jacquie l Result Performing Organization Address [facility] de Phone Number [facility] [address] [place] [address] * OSMOLALITY (10/16/2004 8:21 EDT) Osmolality Cintia 289 MOS/KG SHERI [facility] 10/16/2004 8:21 EDT 10/16/2004 8:21 EDT Hilton Álvarez MD CHEMISTRY & BLOOD GAS ORDE RABLES Final Result [facility] [address] [place] [address] * SODIUM (10/16/2004 8:21 EDT) Sodium 136 - 145 mEq/L [facility] 10/16/2004 8:21 EDT 10/16/2004 8:21 EDT Hilton Álvarez MD CHEMISTRY & BLOOD GAS ORDE RABLES Final Result Performing Organization Address [facility] de Phone Number [facility] [address] [place] [address] * (ABNORMAL) ELECTROLYTES (10/16/2004 8:21 EDT) Sodium 135(L) 136 - 145 mEq/L [facility] Potassium 3.9 3.6 - 5.2 mEq/L [facility] Chloride 101 96 - 110 mEq/L [facility] CO2 28 24 - 32 mEq/L [facility] 10/16/2004 8:21 EDT 10/16/2004 8:21 EDT Hilton Álvarez MD CHEMISTRY & BLOOD GAS ORDE RABLES Final Result Performing Organization Address [facility] de Phone Number [facility] [address] [place] [address] * SODIUM (10/16/2004 6:19 EDT) Sodium 137 136 - 145 mEq/L [facility] 10/16/2004 6:19 EDT 10/16/2004 6:19 EDT Hilton Álvarez MD CHEMISTRY & BLOOD GAS ORDE RABLES Final Result Performing Organization Address City/[facility]/ZIP Co de Phone Number [facility] [address] [place] [address] * GLUCOSE, SERUM (10/16/2004 4:25 EDT) Glucose, Serum 100 70 - 110 mg/dl [facility] 10/16/2004 4:25 EDT 10/16/2004 4:25 EDT Hilton Álvarez MD CHEMISTRY & BLOOD GAS ORDE RABLES Final Result Performing Organization Address [facility] de Phone Number [facility] [address] [place] [address] * PTT (10/16/2004 4:25 EDT) PTT 27 23 - 34 secs [facility] Comment:Therapeutic Heparin range: 72-120 seconds 10/16/2004 4:25 EDT 10/16/2004 4:25 EDT Hilton Álvarez MD HEMATOLOGY & PF4 ORDERABLE S Final Result Performing Organization Address [facility] Phone Number [facility] [address] [place] [address] * (ABNORMAL) PROTIME (10/16/2004 4:25 EDT) Pro [...] ORDERABLE S Final Result Performing Organization Address [facility] de Phone Number [facility] [address] [place] [address] * OSMOLALITY (10/16/2004 4:25 EDT) Osmolality Cintia 283 MOS/KG SHERI [facility] 10/16/2004 4:25 EDT 10/16/2004 4:25 EDT Hilton Álvarez MD CHEMISTRY & BLOOD GAS ORDE RABLES Final Result Performing Organization Address [facility] de Phone Number [facility] [address] [place] [address] * ELECTROLYTES (10/16/2004 4:25 EDT) Sodium 138 136 - 145 mEq/L [facility] Potassium 3.7 3.6 - 5.2 mEq/L [facility] Chloride 103 96 - 110 mEq/L [facility] CO2 30 24 - 32 mEq/L [facility] 10/16/2004 4:25 EDT 10/16/2004 4:25 EDT Hilton Álvarez MD CHEMISTRY & BLOOD GAS ORDE RABLES Final Result Performing Organization Address [facility] de Phone Number [facility] [address] [place] [address] * CREATININE (10/16/2004 4:25 EDT) Creatinine 0.8 0.6 - 1.2 mg/dl [facility] 10/16/2004 4:25 EDT 10/16/2004 4:25 EDT Hilton Álvarez MD HISTORICAL LAB FOR SQ LOAD Final Result Performing Organization Address [facility] de Phone Number [facility] [address] [place] [address] * (ABNORMAL) HEMAGRAM AND DIFFERENTIAL (10/16/2004 4:25 EDT) WBC 10.35 4.5 - 13.0 K/cmm [facility] RBC 3.61(L) 4.50 - 5.30 M/cmm [facility] Hemoglobin 10.3(L) 13.0 - 16.0 gm/dl [facility] HCT 29.5(L) 37.0 - 49.0 % [facility] MCV 82 78 - 98 fl [facility] MCH 28.5 pg [facility] MCHC 34.8 gm/dl [facility] PLT 338(H) 156 - 312 K/cmm [facility] RDW-CV 15.5 % [facility] [...] Type of Diff: Automated [facility] 10/16/2004 4:25 EDT 10/16/2004 4:25 EDT Hilton Álvarez MD PACKAGES & DNA PROBE ORDER LYNDSEY Final Result Performing Organization Address [facility] de Phone Number [facility] [address] [place] [address] * BUN (10/16/2004 4:25 EDT) BUN 19 8 - 21 mg/dl [facility] 10/16/2004 4:25 EDT 10/16/2004 4:25 EDT Hilton Álvarez MD CHEMISTRY & BLOOD GAS ORDE RABLES Final Result Performing Organization Address [facility] de Phone Number [facility] [address] [place] [address] * OSMOLALITY, URINE (10/16/2004 4:25 EDT) Osmolality, Ur 845 MOS/KG HOLLY [facility] 10/16/2004 4:25 EDT 10/16/2004 4:25 EDT Hilton Álvarez MD URINALYSIS ORDERABLES Jacquie l Result Performing Organization Address City/[facility]/ZIP Co de Phone Number [facility] [address] [place] [address] * SODIUM, URINE RANDOM (10/16/2004 4:25 EDT) Sodium, Ur 165.0 mEq/L [facility] 10/16/2004 4:25 EDT 10/16/2004 4:25 EDT Hilton Álvarez MD URINALYSIS ORDERABLES Jacquie l Result Performing Organization Address [facility] de Phone Number [facility] [address] [place] [address] * SODIUM (10/16/2004 2:11 EDT) Sodium 136 136 - 145 mEq/L [facility] 10/16/2004 2:11 EDT 10/16/2004 2:11 EDT Hilton Álvarez MD CHEMISTRY & BLOOD GAS ORDEmerald RABREBECA Final Result Performing Organization Address [facility] de Phone Number [facility] [address] [place] [address] * OSMOLALITY (10/16/2004 0:18 EDT) Osmolality Cintia 292 MOS/KG [facility] 10/16/2004 0:18 EDT 10/16/2004 0:18 EDT Hilton Álvarez MD CHEMISTRY & BLOOD GAS ORDEmerald RABREBECA Final Result Performing Organization Address [facility] de Phone Number [facility] [address] [place] [address] * ELECTROLYTES (10/16/2004 0:18 EDT) Sodium 139 136 - 145 mEq/L [facility] Potassium 3.6 3.6 - 5.2 mEq/L [facility] Chloride 104 96 - 110 mEq/L [facility] CO2 29 24 - 32 mEq/L [facility] 10/16/2004 0:18 EDT 10/16/2004 0:18 EDT Hilton Álvarez MD CHEMISTRY & BLOOD GAS ORDE RABREBECA Final Result Performing Organization Address [facility] de Phone Number [facility] [address] [place] [address] * OSMOLALITY, URINE (10/16/2004 0:18 EDT) Osmolality, Ur 276 MOS/KG MELONIETEA ROJAS [facility] 10/16/2004 0:18 EDT 10/16/2004 0:18 EDT Hilton Álvarez MD URINALYSIS ORDERABLES Jacquie l Result Performing Organization Address [facility] Phone Number [facility] [address] [place] [address] * SODIUM, URINE RANDOM (10/16/2004 0:18 EDT) Sodium, Ur 60.0 mEq/L [facility] 10/16/2004 0:18 EDT 10/16/2004 0:18 EDT Hilton Álvarez MD URINALYSIS ORDERABLES Jacquie l Result Performing Organization Address [facility] de Phone Number [facility] [address] [place] [address] * SODIUM (10/15/2004 21:55 EDT) Sodium 141 136 - 145 mEq/L [facility] 10/15/2004 21:5 5 EDT 10/15/2004 21:55 EDT us Hilton Álvarez MD CHEMISTRY & BLOOD GAS ORDE RABREBECA Final Result Performing Organization Address [facility] de Phone Number [facility] [address] [place] [address] * OSMOLALITY, URINE (10/15/2004 20:04 EDT) Osmolality, Ur 117 MOS/KG HOLLY ROJAS [facility] 10/15/2004 20:0 4 EDT 10/15/2004 20:04 EDT Hilton Álvarez MD URINALYSIS ORDERABLES Jacquie l Result Performing Organization Address [facility] de Phone Number [facility] [address] [place] [address] * SODIUM, URINE RANDOM (10/15/2004 20:04 EDT) Sodium, Ur 29.0 mEq/L [facility] 10/15/2004 20:0 4 EDT 10/15/2004 20:04 EDT Hilton Álvarez MD URINALYSIS ORDERABLES Jacquie l Result Performing Organization Address [facility] de Phone Number [facility] [address] [place] [address] * OSMOLALITY (10/15/2004 20:04 EDT) Osmolality Cintia 285 MOS/KG SHERI ALMEIDA [facility] 10/15/2004 20:0 4 EDT 10/15/2004 20:04 EDT Hilton Álvarez MD CHEMISTRY & BLOOD GAS HERMES HANNON Final Result Performing Organization Address [facility] de Phone Number [facility] [address] [place] [address] * ELECTROLYTES (10/15/2004 20:04 EDT) Sodium 136 136 - 145 mEq/L [facility] Potassium 3.6 3.6 - 5.2 mEq/L [facility] Chloride 99 96 - 110 mEq/L [facility] CO2 29 24 - 32 mEq/L [facility] 10/15/2004 20:0 4 EDT 10/15/2004 20:04 EDT Hilton Álvarez MD CHEMISTRY & BLOOD GAS HERMES HANNON Final Result Performing Organization Address [facility]ZIP Co de Phone Number [facility] [address] [place] [address] * (ABNORMAL) HEMAGRAM (10/15/2004 20:04 EDT) WBC 12.67 4.5 - 13.0 K/cmm [facility] RBC 3.77(L) 4.50 - 5.30 M/cmm [facility] Hemoglobin 10.8(L) 13.0 - 16.0 gm/dl [facility] HCT 31.0(L) 37.0 - 49.0 % [facility] MCV 82 78 - 98 fl [facility] MCH 28.6 pg [facility] MCHC 34.7 gm/dl [facility] PLT 320(H) 156 - 312 K/cmm [facility] RDW-CV 15.2 % [facility] 10/15/2004 20:0 4 EDT 10/15/2004 20:04 EDT us Hilton Álvarez MD HEMATOLOGY & PF4 ORDERABLE S Final Result Performing Organization Address [facility] de Phone Number [facility] [address] [place] [address] * (ABNORMAL) SODIUM (10/15/2004 18:23 EDT) Sodium 133(L) 136 - 145 mEq/L [facility] 10/15/2004 18:2 3 EDT 10/15/2004 18:27 EDT us Hilton Álvarez MD CHEMISTRY & BLOOD GAS HERMES HANNON Final Result Performing Organization Address [facility]/ZIP Co de Phone Number [facility] [address] [place] [address] * OSMOLALITY, URINE (10/15/2004 16:23 EDT) Osmolality, Ur 405 MOS/KG [facility] 10/15/2004 16:2 3 EDT 10/15/2004 16:23 EDT Hilton Álvarez MD URINALYSIS ORDERABLES Jacquie l Result Performing Organization Address [facility] Co de Phone Number [facility] [address] [place] [address] * SODIUM, URINE RANDOM (10/15/2004 16:23 EDT) Sodium, Ur 96.0 mEq/L [facility] 10/15/2004 16:2 3 EDT 10/15/2004 16:23 EDT Hilton Álvarez MD URINALYSIS ORDERABLES Jacquie l Result Performing Organization Address [facility] Phone Number [facility] [address] [place] [address] * GLUCOSE, SERUM (10/15/2004 16:22 EDT) Glucose, Serum 97 70 - 110 mg/dl [facility] 10/15/2004 16:2 2 EDT 10/15/2004 16:22 EDT Hilton Álvarez MD CHEMISTRY & BLOOD GAS ORDE RABLES Final Result Performing Organization Address [facility] de Phone Number [facility] [address] [place] [address] * OSMOLALITY (10/15/2004 16:22 EDT) Osmolality Cintia 269 MOS/KG SHERI ALMEIDA [facility] 10/15/2004 16:2 2 EDT 10/15/2004 16:22 EDT Hilton Álvarez MD CHEMISTRY & BLOOD GAS ORDE RABLES Final Result Performing Organization Address [facility] de Phone Number [facility] [address] [place] [address] * (ABNORMAL) ELECTROLYTES (10/15/2004 16:22 EDT) Sodium 130(L) 136 - 145 mEq/L [facility] Potassium 3.6 3.6 - 5.2 mEq/L [facility] Chloride 96 96 - 110 mEq/L [facility] CO2 28 24 - 32 mEq/L [facility] 10/15/2004 16:2 2 EDT 10/15/2004 16:22 EDT Hilton Álvarez MD CHEMISTRY & BLOOD GAS ORDE RABLES Final Result [facility] [address] [place] [address] * (ABNORMAL) SODIUM (10/15/2004 14:04 EDT) Sodium 129(L) 136 - 145 mEq/L [facility] Comment:Heparinized plasma. 10/15/2004 14:0 4 EDT 10/15/2004 14:04 EDT Hilton Álvarez MD CHEMISTRY & BLOOD GAS ORDE RABLES Final Result Performing Organization Address [facility] Phone Number [facility] [address] [place] [address] * OSMOLALITY (10/15/2004 12:06 EDT) Osmolality Cintia 275 MOS/KG SHERI [facility] 10/15/2004 12:0 6 EDT 10/15/2004 12:06 EDT Hilton Álvarez MD CHEMISTRY & BLOOD GAS ORDE RABLES Final Result Performing Organization Address [facility] de Phone Number [facility] [address] [place] [address] * SODIUM (10/15/2004 12:06 EDT) Sodium 136 - 145 mEq/L [facility] 10/15/2004 12:0 6 EDT 10/15/2004 12:06 EDT Hilton Álvarez MD CHEMISTRY & BLOOD GAS ORDEmerald HANNON Final Result Performing Organization Address [facility] de Phone Number [facility] [address] [place] [address] * (ABNORMAL) ELECTROLYTES (10/15/2004 12:06 EDT) Sodium [...] HERMES HANNON Final Result Performing Organization Address [facility] de Phone Number [facility] [address] [place] [address] * OSMOLALITY, URINE (10/15/2004 12:04 EDT) Pathologist [facility] Osmolality, Ur 840 MOS/KG HOLLY [facility] 10/15/2004 12:0 4 EDT 10/15/2004 12:04 EDT Hilton Álvarez MD URINALYSIS ORDERABLES Jacquie l Result Performing Organization Address [facility] de Phone Number [facility] [address] [place] [address] * SODIUM, URINE RANDOM (10/15/2004 12:04 EDT) Sodium, Ur 243.0 mEq/L [facility] 10/15/2004 12:0 4 EDT 10/15/2004 12:04 EDT Hilton Álvarez MD URINALYSIS ORDERABLES Jacquie l Result Performing Organization Address [facility] de Phone Number [facility] [address] [place] [address] * (ABNORMAL) SODIUM (10/15/2004 10:07 EDT) Sodium 130(L) 136 - 145 mEq/L [facility] Comment:Heparinized plasma. 10/15/2004 10:0 7 EDT 10/15/2004 10:07 EDT Hilton Álvarez MD CHEMISTRY & BLOOD G[facility] Final Result Performing Organization Address [facility] de Phone Number [facility] [address] [place] [address] * OSMOLALITY, URINE (10/15/2004 8:17 EDT) Osmolality, Ur 791 MOS/KG HOLLY [facility] 10/15/2004 8:17 EDT 10/15/2004 8:17 EDT Hilton Álvarez MD URINALYSIS ORDERABLES Jacquie l Result Performing Organization Address [facility] de Phone Number [facility] [address] [place] [address] * SODIUM, URINE RANDOM (10/15/2004 8:17 EDT) Sodium, Ur 254.0 mEq/L [facility] 10/15/2004 8:17 EDT 10/15/2004 8:17 EDT Hilton Álvarez MD URINALYSIS ORDERABLES Jacquie l Result Performing Organization Address [facility] de Phone Number [facility] [address] [place] [address] * URINE MICROSCOPIC (10/15/2004 8:17 EDT) WBC, [...] Crystals, UA 1 to 10 /HPF [facility]ANKIE [facility] Comment:Calcium phosphate Hyaline Casts, UA None seen /LPF [facility] UA Comment Microscopic results are unreliable on urines unrefrig >2hrs or refrig >8hrs. [facility] Mucus, UA Present [facility] Additional Findings Amorphous material present [facility] 10/15/2004 8:17 EDT 10/15/2004 8:17 EDT Hilton Álvarez MD URINALYSIS ORDERABLES Jacquie nur Result Performing Organization Address [facility] de Phone Number [facility] [address] [place] [address] * (ABNORMAL) URINALYSIS (10/15/2004 8:17 EDT) Color, UA Yellow [facility] Clarity, UA Clear [facility] Glucose, UA Norm NORM [facility] Bilirubin, UA Neg NEG [facility] Ketones, UA Neg NEG [facility] Specific [place], Urine 1.020 1.005 - 1.02 [facility] Blood, UA Trace(A) NEG [facility] pH, UA 7.0 5.0 - 9.0 [facility] Protein, UA Neg NEG [facility] Urobilinogen, UA Norm NORM mg/dL [facility] Nitrite, UA Neg NEG [facility] Leuk Esterase Neg NEG TRUE [facility] 10/15/2004 8:17 EDT 10/15/2004 8:17 EDT Hilton Álvarez MD URINALYSIS ORDERABLES Jacquie l Result Performing Organization Address [facility] de Phone Number [facility] [address] [place] [address] * TESTS ADDED BY PHONE (10/15/2004 8:17 EDT) Tests to be added UA [facility] 10/15/2004 8:17 EDT 10/15/2004 8:17 EDT Hilton Álvarez MD CHEMISTRY & BLOOD GAS ORDE RABLES Final Result Performing Organization Address [facility] de Phone Number [facility] [address] [place] [address] * OSMOLALITY (10/15/2004 8:16 EDT) Osmolality Cintia 271 MOS/KG SHERI ALMEIDA [facility] 10/15/2004 8:16 EDT 10/15/2004 8:16 EDT Hilton Álvarez MD CHEMISTRY & BLOOD GAS ORDE RABLES Final Result Performing Organization Address [facility] de Phone Number [facility] [address] [place] [address] * (ABNORMAL) ELECTROLYTES (10/15/2004 8:16 EDT) Pathologist [facility] Sodium 131(L) 136 - 145 mEq/L [facility] Potassium 3.6 3.6 - 5.2 mEq/L [facility] Chloride 98 96 - 110 mEq/L [facility] CO2 29 24 - 32 mEq/L [facility] 10/15/2004 8:16 EDT 10/15/2004 8:16 EDT Hilton Álvarez MD CHEMISTRY & BLOOD GAS ORDE RABLES Final Result Performing Organization Address [facility] de Phone Number [facility] [address] [place] [address] * OSMOLALITY, URINE (10/15/2004 4:21 EDT) Osmolality, Ur 587 MOS/KG HOLLY [facility] 10/15/2004 4:21 EDT 10/15/2004 4:21 EDT Hilton Álvarez MD URINALYSIS ORDERABLES Jacquie l Result Performing Organization Address [facility] de Phone Number [facility] [address] [place] [address] * SODIUM, URINE RANDOM (10/15/2004 4:21 EDT) Pathologist [facility] Sodium, Ur 189.0 mEq/L [facility] 10/15/2004 4:21 EDT 10/15/2004 4:21 EDT Hilton Álvarez MD URINALYSIS ORDERABLES Jacquie l Result Performing Organization Address [facility] de Phone Number [facility] [address] [place] [address] * GLUCOSE, SERUM (10/15/2004 4:21 EDT) [facility] Glucose, Serum 110 70 - 110 mg/dl [facility] 10/15/2004 4:21 EDT 10/15/2004 4:21 EDT Hilton Álvarez MD CHEMISTRY & BLOOD GAS ORDE RABLES Final Result Performing Organization Address [facility] de Phone Number [facility] [address] [place] [address] * PTT (10/15/2004 4:21 EDT) [facility] PTT 27 23 - 34 secs [facility] Comment:Therapeutic Heparin range: 72-120 seconds 10/15/2004 4:21 EDT 10/15/2004 4:21 EDT Hilton Álvarez MD HEMATOLOGY & PF4 ORDERABLE S Final Result Performing Organization Address [facility] de Phone Number [facility] [address] [place] [address] * (ABNORMAL) PROTIME (10/15/2004 4:21 EDT) [facility] Pro Time 14.9(H) 12.3 - 14.7 secs [facility] I.N.R. 1.1 0.9 - 1.1 Ratio [facility] Comment: Moderate Intensity Coumadin INR = 2.0-3.0 Adjustments in anticoagulant therapy dose should be based upon the INR and NOT the Pro Time. 10/15/2004 4:21 EDT 10/15/2004 4:21 EDT Hilton Álvarez MD HEMATOLOGY & PF4 ORDERABLE S Final Result Performing Organization Address [facility] de Phone Number [facility] [address] [place] [address] * OSMOLALITY (10/15/2004 4:21 EDT) Pathologist [facility] Osmolality Cintia 270 MOS/KG SHERI [facility] 10/15/2004 4:21 EDT 10/15/2004 4:21 EDT Hilton Álvarez MD CHEMISTRY & BLOOD GAS ORDEmerald HANNON Final Result Performing Organization Address [facility] de Phone Number [facility] [address] [place] [address] * (ABNORMAL) ELECTROLYTES (10/15/2004 4:21 EDT) [facility] Sodium 126(L) 136 - 145 mEq/L [facility] Potassium 3.5(L) 3.6 - 5.2 mEq/L [facility] Chloride 90(L) 96 - 110 mEq/L [facility] CO2 30 24 - 32 mEq/L [facility] 10/15/2004 4:21 EDT 10/15/2004 4:21 EDT Hilton Álvarez MD CHEMISTRY & BLOOD GAS ORDEmreald HANNON Final Result Performing Organization Address [facility] de Phone Number [facility] [address] [place] [address] * CREATININE (10/15/2004 4:21 EDT) [facility] Creatinine 0.6 0.6 - 1.2 mg/dl [facility] 10/15/2004 4:21 EDT 10/15/2004 4:21 EDT us Hilton Álvarez MD HISTORICAL LAB FOR SQ LOAD Final Result Performing Organization Address [facility] de Phone Number [facility] [address] [place] [address] * (ABNORMAL) HEMAGRAM AND DIFFERENTIAL (10/15/2004 4:21 [...] [facility] Neutrophils 9.96 K/cmm [facility] Lymphs 1.87 K/cmm [facility] ABS Monocytes 0.96 K/cmm [facility] ABS Eosinophils 0.15 K/cmm [facility] ABS Basophils 0.06 K/cmm [facility] Type of Diff: Automated [facility] 10/15/2004 4:21 EDT 10/15/2004 4:21 EDT us Hilton Álvarez MD PACKAGES & DNA PROBE ORDER LYNDSEY Final Result Performing Organization Address [facility] de Phone Number [facility] [address] [place] [address] * BUN (10/15/2004 4:21 EDT) BUN 12 8 - 21 mg/dl [facility] 10/15/2004 4:21 EDT 10/15/2004 4:21 EDT Hilton Álvarez MD CHEMISTRY & BLOOD GAS ORDE RABLES Final Result Performing Organization Address [facility] Phone Number [facility] [address] [place] [address] * OSMOLALITY, URINE (10/15/2004 0:55 EDT) Osmolality, Ur 646 MOS/KG HOLLY ROJAS [facility] 10/15/2004 0:55 EDT 10/15/2004 0:55 EDT Hilton Álvarez MD URINALYSIS ORDERABLES Jacquie l Result Performing Organization Address [facility] de Phone Number [facility] [address] [place] [address] * SODIUM, URINE RANDOM (10/15/2004 0:55 EDT) Sodium, Ur 258.0 mEq/L [facility] 10/15/2004 0:55 EDT 10/15/2004 0:55 EDT Hilton Álvarez MD URINALYSIS ORDERABLES Jacquie l Result Performing Organization Address [facility] de Phone Number [facility] [address] [place] [address] * OSMOLALITY (10/15/2004 0:54 EDT) Osmolality Cintia 266 MOS/KG MELONIENoe ELLE [facility] 10/15/2004 0:54 EDT 10/15/2004 0:54 EDT Hilton Álvarez MD CHEMISTRY & BLOOD GAS ORDE RABLES Final Result Performing Organization Address [facility] de Phone Number [facility] [address] [place] [address] * (ABNORMAL) ELECTROLYTES (10/15/2004 0:54 EDT) Sodium 127(L) 136 - 145 mEq/L [facility] Potassium 3.6 3.6 - 5.2 mEq/L [facility] Chloride 92(L) 96 - 110 mEq/L [facility] CO2 29 24 - 32 mEq/L [facility] 10/15/2004 0:54 EDT 10/15/2004 0:54 EDT Hilton Álvarez MD CHEMISTRY & BLOOD GAS ORDE RIDDHI Final Result Performing Organization Address [facility]IP [facility] de Phone Number [facility] [address] [place] [address] * SODIUM, URINE RANDOM (10/14/2004 22:05 EDT) Sodium, Ur 148.0 mEq/L [facility] 10/14/2004 22:0 5 EDT 10/14/2004 22:05 EDT Hilton Álvarez MD URINALYSIS ORDERABLES Jacquie l Result Performing Organization Address [facility] de Phone Number [facility] [address] [place] [address] * (ABNORMAL) SODIUM (10/14/2004 21:44 EDT) Sodium 130(L) 136 - 145 mEq/L [facility] 10/14/2004 21:4 4 EDT 10/14/2004 22:05 EDT Hilton Álvarez MD CHEMISTRY & BLOOD GAS ORDE RABLES Final Result Performing Organization Address [facility] de [facility] [address] [place] [address] * (ABNORMAL) GLUCOSE, SERUM (10/14/2004 20:25 EDT) Glucose, Serum 125(H) 70 - 110 mg/dl [facility] 10/14/2004 20:2 5 EDT 10/14/2004 20:25 EDT Hilton Álvarez MD CHEMISTRY & BLOOD GAS ORDE RABLES Final Result Performing Organization Address [facility] de Phone Number [facility] [address] [place] [address] * OSMOLALITY (10/14/2004 20:25 EDT) Osmolality Cintia 272 MOS/KG SHERI [facility] 10/14/2004 20:2 5 EDT 10/14/2004 20:25 EDT Hilton Álvarez MD CHEMISTRY & BLOOD GAS ORDE RABLES Final Result Performing Organization Address [facility] Phone Number [facility] [address] [place] [address] * (ABNORMAL) ELECTROLYTES (10/14/2004 20:25 EDT) Sodium 130(L) 136 - 145 mEq/L [facility] Potassium 3.7 3.6 - 5.2 mEq/L [facility] Chloride 94(L) 96 - 110 mEq/L [facility] CO2 29 24 - 32 mEq/L [facility] 10/14/2004 20:2 5 EDT 10/14/2004 20:25 EDT Hilton Álvarez MD CHEMISTRY & BLOOD GAS ORDE RABLES Final Result Performing Organization Address [facility] de Phone Number [facility] [address] [place] [address] * CREATININE (10/14/2004 20:25 EDT) Creatinine 0.6 0.6 - 1.2 mg/dl [facility] 10/14/2004 20:2 5 EDT 10/14/2004 20:25 EDT Hilton Álvarez MD HISTORICAL LAB FOR SQ LOAD Final Result [facility] [address] [place] [address] * BUN (10/14/2004 20:25 EDT) BUN 13 8 - 21 mg/dl [facility] 10/14/2004 20:2 5 EDT 10/14/2004 20:25 EDT Hilton Álvarez MD CHEMISTRY & BLOOD GAS ORDE RABLES Final Result Performing Organization Address [facility] de Phone Number [facility] [address] [place] [address] * OSMOLALITY, URINE (10/14/2004 20:25 EDT) Osmolality, Ur 697 MOS/KG HOLLY ROJAS [facility] 10/14/2004 20:2 5 EDT 10/14/2004 20:25 EDT Hilton Álvarez MD URINALYSIS ORDERABLES Jacquie l Result Performing Organization Address [facility] de Phone Number [facility] [address] [place] [address] * SODIUM, URINE RANDOM (10/14/2004 20:25 EDT) Sodium, Ur 275.0 mEq/L [facility] 10/14/2004 20:2 5 EDT 10/14/2004 20:25 EDT Hilton Álvarez MD URINALYSIS ORDERABLES Jacquie l Result Performing Organization Address [facility] de Phone Number [facility] [address] [place] [address] * (ABNORMAL) GLUCOSE, SERUM (10/14/2004 15:58 EDT) Glucose, Serum 113(H) 70 - 110 mg/dl [facility] 10/14/2004 15:5 8 EDT 10/14/2004 16:03 EDT Hilton Álvarez MD CHEMISTRY & BLOOD GAS ORDEmerald HANNON Final Result Performing Organization Address [facility] de Phone Number [facility] [address] [place] [address] * OSMOLALITY (10/14/2004 15:58 EDT) Osmolality Cintia 285 MOS/KG SHERI [facility] 10/14/2004 15:5 8 EDT 10/14/2004 16:03 EDT Hilton Álvarez MD CHEMISTRY & BLOOD GAS HERMES HANNON Final Result Performing Organization Address [facility] Phone Number [facility] [address] [place] [address] * (ABNORMAL) ELECTROLYTES (10/14/2004 15:58 EDT) Sodium 133(L) 136 - 145 mEq/L [facility] Potassium 3.9 3.6 - 5.2 mEq/L [facility] Chloride 100 96 - 110 mEq/L [facility] CO2 27 24 - 32 mEq/L ANISHA [facility] 10/14/2004 15:5 8 EDT 10/14/2004 16:03 EDT Hilton Álvarez MD CHEMISTRY & BLOOD GAS HERMES HANNON Final Result Performing Organization Address [facility] de Phone Number [facility] [address] [place] [address] * OSMOLALITY, URINE (10/14/2004 15:57 EDT) Osmolality, Ur 823 MOS/KG HOLLY [facility] 10/14/2004 15:5 7 EDT 10/14/2004 16:02 EDT Hilton Álvarez MD URINALYSIS ORDERABLES Jacquie l Result Performing Organization Address [facility]IP [facility] de Phone Number [facility] [address] [place] [address] * SODIUM, URINE RANDOM (10/14/2004 15:57 EDT) Sodium, Ur 265.0 mEq/L [facility] 10/14/2004 15:5 7 EDT 10/14/2004 16:02 EDT us Hilton Álvarez MD URINALYSIS ORDERABLES Jacquie liudmila Result [facility] [address] [place] [address] * CT HEAD WO CONTRAST (10/14/2004 13:25 [...] seen in the left ethmoid air cells. [facility] Trice Scott MD IMG CT ORDERABLES Final Re sult * OSMOLALITY, URINE (10/14/2004 11:49 EDT) Osmolality, Ur 888 MOS/KG HOLLY [facility] 10/14/2004 11:4 9 EDT 10/14/2004 11:49 EDT Hilton Álvarez MD URINALYSIS ORDERABLES Jacquie l Result [facility] [address] [place] [address] * SODIUM, URINE RANDOM (10/14/2004 11:49 EDT) Sodium, Ur 249.0 mEq/L [facility] 10/14/2004 11:4 9 EDT 10/14/2004 11:49 EDT us Hilton Álvarez MD URINALYSIS ORDERABLES Jacquie l Result Performing Organization Address [facility]/ZIP Co de Phone Number [facility] [address] [place] [address] * OSMOLALITY (10/14/2004 11:48 EDT) Osmolality Cintia 283 MOS/KG SHERI ALMEIDA [facility] 10/14/2004 11:4 8 EDT 10/14/2004 11:48 EDT Hilton Álvarez MD CHEMISTRY & BLOOD GAS ORDEmerald HANNON Final Result Performing Organization Address [facility] de Phone Number [facility] [address] [place] [address] * (ABNORMAL) ELECTROLYTES (10/14/2004 11:48 EDT) Sodium 136 136 - 145 mEq/L [facility] Potassium 3.5(L) 3.6 - 5.2 mEq/L [facility] Chloride 102 96 - 110 mEq/L [facility] CO2 31 24 - 32 mEq/L [facility] 10/14/2004 11:4 8 EDT 10/14/2004 11:48 EDT us Hilton Álvarez MD CHEMISTRY & BLOOD GAS ORDEmerald HANNON Final Result Performing Organization Address [facility] de Phone Number [facility] [address] [place] [address] * OSMOLALITY, URINE (10/14/2004 8:01 EDT) Osmolality, Ur 899 MOS/KG HOLLY [facility] 10/14/2004 8:01 EDT 10/14/2004 8:01 EDT Hilton Álvarez MD URINALYSIS ORDERABLES Jacquie l Result Performing Organization Address [facility]/ZIP Co de Phone Number [facility] [address] [place] [address] * SODIUM, URINE RANDOM (10/14/2004 8:01 EDT) Sodium, Ur 287.0 mEq/L [facility] 10/14/2004 8:01 EDT 10/14/2004 8:01 EDT Hilton Álvarez MD URINALYSIS ORDERABLES Jacquie l Result Performing Organization Address [facility] de Phone Number [facility] [address] [place] [address] * OSMOLALITY (10/14/2004 8:01 EDT) Osmolality Cintia 286 MOS/KG SHERI [facility] 10/14/2004 8:01 EDT 10/14/2004 8:01 EDT Hilton Álvarez MD CHEMISTRY & BLOOD GAS ORDE RABREBECA Final Result Performing Organization Address [facility] Phone Number [facility] [address] [place] [address] * (ABNORMAL) ELECTROLYTES (10/14/2004 8:01 EDT) Sodium 139 136 - 145 mEq/L [facility] Potassium 3.2(L) 3.6 - 5.2 mEq/L [facility] Chloride 105 96 - 110 mEq/L [facility] CO2 28 24 - 32 mEq/L [facility] 10/14/2004 8:01 EDT 10/14/2004 8:01 EDT Hilton Álvarez MD CHEMISTRY & BLOOD GAS ORDE RABLES Final Result Performing Organization Address [facility] de Phone Number [facility] [address] [place] [address] * GLUCOSE, SERUM (10/14/2004 4:22 EDT) Glucose, Serum 99 70 - 110 mg/dl [facility] 10/14/2004 4:22 EDT 10/14/2004 4:22 EDT Hilton Álvarez MD CHEMISTRY & BLOOD GAS ORDE RABLES Final Result Performing Organization Address [facility] de Phone Number [facility] [address] [place] [address] * PTT (10/14/2004 4:22 EDT) PTT 25 23 - 34 secs [facility] Comment:Therapeutic Heparin range: 72-120 seconds 10/14/2004 4:22 EDT 10/14/2004 4:22 EDT Hilton Álvarez MD HEMATOLOGY & PF4 ORDERABLE S Final Result Performing Organization Address [facility] Phone Number [facility] [address] [place] [address] * (ABNORMAL) PROTIME (10/14/2004 4:22 EDT) Pro [...] ORDERABLE S Final Result Performing Organization Address [facility] de Phone Number [facility] [address] [place] [address] * OSMOLALITY (10/14/2004 4:22 EDT) Osmolality Cintia 291 MOS/KG SHERI [facility] 10/14/2004 4:22 EDT 10/14/2004 4:22 EDT Hilton Álvarez MD CHEMISTRY & BLOOD GAS ORDE RABLES Final Result Performing Organization Address [facility] de Phone Number [facility] [address] [place] [address] * (ABNORMAL) ELECTROLYTES (10/14/2004 4:22 EDT) Pathologist [facility] Sodium 137 136 - 145 mEq/L [facility] Potassium 3.3(L) 3.6 - 5.2 mEq/L [facility] Chloride 103 96 - 110 mEq/L [facility] CO2 31 24 - 32 mEq/L [facility] 10/14/2004 4:22 EDT 10/14/2004 4:22 EDT Hilton Álvarez MD CHEMISTRY & BLOOD GAS ORDE RABLES Final Result Performing Organization Address [facility] de Phone Number [facility] [address] [place] [address] * CREATININE (10/14/2004 4:22 EDT) Pathologist [facility] Creatinine 0.8 0.6 - 1.2 mg/dl [facility] 10/14/2004 4:22 EDT 10/14/2004 4:22 EDT Hilton Álvarez MD HISTORICAL LAB FOR SQ LOAD Final Result Performing Organization Address [facility] de Phone Number [facility] [address] [place] [address] * (ABNORMAL) HEMAGRAM AND DIFFERENTIAL (10/14/2004 4:22 EDT) Pathologist [facility] WBC 11.30 4.5 - 13.0 K/cmm [facility] RBC 3.34(L) 4.50 - 5.30 M/cmm [facility] Hemoglobin 9.4(L) 13.0 - 16.0 gm/dl [facility] HCT 27.2(L) 37.0 - 49.0 % [facility] MCV 82 78 - 98 fl [facility] MCH 28.1 pg [facility] MCHC 34.4 gm/dl [facility] PLT 249 156 - 312 K/cmm [facility] RDW-CV 15.3 % [facility] [...] LAB ABS Monocytes 1.48 K/cmm [facility] ABS Eosinophils 0.03 K/cmm [facility] ABS Basophils 0.07 K/cmm [facility] Type of Diff: Automated [facility] 10/14/2004 4:22 EDT 10/14/2004 4:22 EDT Hilton Álvarez MD PACKAGES & DNA PROBE ORDER LYNDSEY Final Result Performing Organization Address [facility] de Phone Number [facility] [address] [place] [address] * BUN (10/14/2004 4:22 EDT) BUN 16 8 - 21 mg/dl [facility] 10/14/2004 4:22 EDT 10/14/2004 4:22 EDT Hilton Álvarez MD CHEMISTRY & BLOOD GAS ORDE RABLES Final Result Performing Organization Address [facility] de Phone Number [facility] [address] [place] [address] * REFRACTOMETER SPECIFIC GRAVITY, URINE (10/14/2004 4:21 EDT) Refractometer SG,Urine 1.019 1.005 - 1.02 [facility] 10/14/2004 4:21 EDT 10/14/2004 4:21 EDT Hilton Álvarez MD URINALYSIS ORDERABLES Jacquie l Result Performing Organization Address [facility] de Phone Number [facility] [address] [place] [address] * OSMOLALITY, URINE (10/14/2004 4:21 EDT) Osmolality, Ur 852 MOS/KG MELONIETEA [facility] 10/14/2004 4:21 EDT 10/14/2004 4:21 EDT Hilton Álvarez MD URINALYSIS ORDERABLES Jacquie l Result Performing Organization Address [facility] Phone Number [facility] [address] [place] [address] * SODIUM, URINE RANDOM (10/14/2004 4:21 EDT) Sodium, Ur 306.0 mEq/L [facility] 10/14/2004 4:21 EDT 10/14/2004 4:21 EDT Hilton Álvarez MD URINALYSIS ORDERABLES Jacquie l Result Performing Organization Address [facility] de Phone Number [facility] [address] [place] [address] * GLUCOSE, SERUM (10/14/2004 0:22 EDT) Pathologist [facility] Glucose, Serum 91 70 - 110 mg/dl [facility] 10/14/2004 0:22 EDT 10/14/2004 0:22 EDT Hilton Álvarze MD CHEMISTRY & BLOOD GAS HERMES HANNON Final Result Performing Organization Address [facility] de Phone Number [facility] [address] [place] [address] * OSMOLALITY (10/14/2004 0:22 EDT) Osmolality Cintia 290 MOS/KG MELONIENoe ALMEIDA [facility] 10/14/2004 0:22 EDT 10/14/2004 0:22 EDT Hilton Álvarez MD CHEMISTRY & BLOOD GAS ORDE RABLES Final Result Performing Organization Address [facility] de Phone Number [facility] [address] [place] [address] * (ABNORMAL) ELECTROLYTES (10/14/2004 0:22 EDT) Sodium 141 136 - 145 mEq/L [facility] Potassium 3.4(L) 3.6 - 5.2 mEq/L [facility] Chloride 106 96 - 110 mEq/L [facility] CO2 30 24 - 32 mEq/L [facility] 10/14/2004 0:22 EDT 10/14/2004 0:22 EDT Hilton Álvarez MD CHEMISTRY & BLOOD GAS HERMES HANNON Final Result Performing Organization Address [facility] de Phone Number [facility] [address] [place] [address] * OSMOLALITY, URINE (10/14/2004 0:22 EDT) Osmolality, Ur 767 MOS/KG HOLLY ROJAS [facility] 10/14/2004 0:22 EDT 10/14/2004 0:22 EDT Hilton Álvarez MD URINALYSIS ORDERABLES Jacquie l Result Performing Organization Address [facility] de Phone Number [facility] [address] [place] [address] * SODIUM, URINE RANDOM (10/14/2004 0:22 EDT) Sodium, Ur 293.0 mEq/L [facility] 10/14/2004 0:22 EDT 10/14/2004 0:22 EDT Hilton Álvarez MD URINALYSIS ORDERABLES Jacquie l Result Performing Organization Address [facility] de Phone Number [facility] [address] [place] [address] * SODIUM (10/13/2004 22:02 EDT) Sodium 143 136 - 145 mEq/L [facility] 10/13/2004 22:0 2 EDT 10/13/2004 22:02 EDT Hilton Álvarez MD CHEMISTRY & BLOOD GAS ORDE RABLES Final Result Performing Organization Address [facility] de Phone Number [facility] [address] [place] [address] * OSMOLALITY (10/13/2004 20:19 EDT) Pathologist [facility] Osmolality Cintia 300 MOS/KG SHERI [facility] 10/13/2004 20:1 9 EDT 10/13/2004 20:19 EDT Hilton Álvarez MD CHEMISTRY & BLOOD GAS ORDE RABLES Final Result Performing Organization Address [facility] de Phone Number [facility] [address] [place] [address] * (ABNORMAL) ELECTROLYTES (10/13/2004 20:19 EDT) Pathologist [facility] Sodium 147(H) 136 - 145 mEq/L [facility] Potassium 3.5(L) 3.6 - 5.2 mEq/L [facility] Chloride 111(H) 96 - 110 mEq/L [facility] CO2 29 24 - 32 mEq/L [facility] 10/13/2004 20:1 9 EDT 10/13/2004 20:19 EDT Hilton Álvarez MD CHEMISTRY & BLOOD GAS ORDE RABLES Final Result Performing Organization Address [facility] de Phone Number [facility] [address] [place] [address] * (ABNORMAL) REFRACTOMETER SPECIFIC GRAVITY, URINE (10/13/2004 20:16 EDT) Pathologist [facility] Refractometer SG,Urine 1.002(L) 1.005 - 1.02 [facility] Comment: Refractometer specific gravity Results greater than 1.035 suggest possible interference from glucose or radiographic dye. 10/13/2004 20:1 6 EDT 10/13/2004 20:16 EDT Hilton Álvarez MD URINALYSIS ORDERABLES Jacquie l Result Performing Organization Address [facility] de Phone Number [facility] [address] [place] [address] * OSMOLALITY, URINE (10/13/2004 20:16 EDT) Osmolality, Ur 87 MOS/KG MELONIETEA ROJAS [facility] 10/13/2004 20:1 6 EDT 10/13/2004 20:16 EDT Hilton Álvarez MD URINALYSIS ORDERABLES Jacquie l Result Performing Organization Address [facility] de Phone Number [facility] [address] [place] [address] * SODIUM, URINE RANDOM (10/13/2004 20:16 EDT) Sodium, Ur 18.0 mEq/L [facility] 10/13/2004 20:1 6 EDT 10/13/2004 20:16 EDT Hilton Álvarez MD URINALYSIS ORDERABLES Jacquie l Result Performing Organization Address [facility] de Phone Number [facility] [address] [place] [address] * SODIUM (10/13/2004 18:38 EDT) Sodium 144 136 - 145 mEq/L [facility] 10/13/2004 18:3 8 EDT 10/13/2004 18:38 EDT us Hilton Álvarez MD CHEMISTRY & BLOOD GAS ORDE RIDDHI Final Result Performing Organization Address [facility] de Phone Number [facility] [address] [place] [address] * SODIUM, URINE RANDOM (10/13/2004 17:34 EDT) Sodium, Ur 17.0 mEq/L [facility] 10/13/2004 17:3 4 EDT 10/13/2004 17:34 EDT us Hilton Álvarez MD URINALYSIS ORDERABLES Jacquie l Result Performing Organization Address [facility] de Phone Number [facility] [address] [place] [address] * OSMOLALITY, URINE (10/13/2004 15:42 EDT) Osmolality, Ur 145 MOS/KG HOLLY ROJAS [facility] 10/13/2004 15:4 2 EDT 10/13/2004 15:42 EDT us Hilton Álvarez MD URINALYSIS ORDERABLES Jacquie l Result Performing Organization Address [facility] Phone Number [facility] [address] [place] [address] * SODIUM, URINE RANDOM (10/13/2004 15:42 EDT) Sodium, Ur 16.0 mEq/L [facility] 10/13/2004 15:4 2 EDT 10/13/2004 15:42 EDT us Hilton Álvarez MD URINALYSIS ORDERABLES Jacquie l Result Performing Organization Address [facility] Phone Number [facility] [address] [place] [address] * (ABNORMAL) PHENYTOIN (10/13/2004 15:33 EDT) Phenytoin [...] ORDE RABLES Final Result Performing Organization Address [facility] de Phone Number [facility] [address] [place] [address] * OSMOLALITY (10/13/2004 15:33 EDT) Osmolality Cintia 294 MOS/KG SHERI [facility] 10/13/2004 15:3 3 EDT 10/13/2004 15:33 EDT Hilton Álvarez MD CHEMISTRY & BLOOD GAS ORDE RABLES Final Result Performing Organization Address [facility] de Phone Number [facility] [address] [place] [address] * (ABNORMAL) ELECTROLYTES (10/13/2004 15:33 EDT) Sodium 139 136 - 145 mEq/L [facility] Potassium 3.5(L) 3.6 - 5.2 mEq/L [facility] Chloride 100 96 - 110 mEq/L [facility] CO2 31 24 - 32 mEq/L [facility] 10/13/2004 15:3 3 EDT 10/13/2004 15:33 EDT Hilton Álvarez MD CHEMISTRY & BLOOD GAS ORDE RABLES Final Result Performing Organization Address [facility] de Phone Number [facility] [address] [place] [address] * OSMOLALITY (10/13/2004 12:01 EDT) Osmolality Cintia 280 MOS/KG SHERI ALMEIDA [facility] 10/13/2004 12:0 1 EDT 10/13/2004 12:01 EDT Hilton Álvarez MD CHEMISTRY & BLOOD GAS ORDE RABLES Final Result Performing Organization Address [facility] de Phone Number [facility] [address] [place] [address] * (ABNORMAL) ELECTROLYTES (10/13/2004 12:01 EDT) Sodium 135(L) 136 - 145 mEq/L [facility] Potassium 3.7 3.6 - 5.2 mEq/L [facility] Chloride 100 96 - 110 mEq/L [facility] CO2 30 24 - 32 mEq/L [facility] 10/13/2004 12:0 1 EDT 10/13/2004 12:01 EDT Hilton Álvarez MD CHEMISTRY & BLOOD GAS ORDE RABLES Final Result Performing Organization Address [facility] de Phone Number [facility] [address] [place] [address] * BACTERIAL CULTURE/SMEAR, RESPIRATORY (10/13/2004 12:00 EDT) Specimen Description Sputum [facility] Gram Smear Result Many Polys Few Squamous epithelial cells Alveolar macrophages present Respiratory epithelial cells present No bacteria seen [facility] Result No growth [facility] Report Status Final [id number] [facility] 10/13/2004 12:0 0 EDT 10/13/2004 12:21 EDT Hilton Álvarez MD MICROBIOLOGY - GENERAL ORD ERABLES Final Result Performing Organization Address [facility] de Phone Number [facility] [address] [place] [address] * UA REFLEX (10/13/2004 12:00 EDT) UA Billing Microscopic not indicated. [facility] 10/13/2004 12:0 0 EDT 10/13/2004 12:00 EDT Hilton Álvarez MD URINALYSIS ORDERABLES Jacquie l Result Performing Organization Address [facility] de Phone Number [facility] [address] [place] [address] * SODIUM, URINE RANDOM (10/13/2004 12:00 EDT) Sodium, Ur 49.0 mEq/L [facility] 10/13/2004 12:0 0 EDT 10/13/2004 12:00 EDT Hilton Álvarez MD URINALYSIS ORDERABLES Jacquie l Result Performing Organization Address [facility] de Phone Number [facility] [address] [place] [address] * URINALYSIS (10/13/2004 12:00 EDT) Color, UA Yellow [facility] Clarity, UA Cloudy [facility] Glucose, UA Norm NORM [facility] Bilirubin, UA Neg NEG FLETCH ER [facility] Ketones, UA Neg NEG [facility] Specific [place], Urine 1.020 1.005 - 1.02 [facility] Blood, UA Neg NEG [facility] pH, UA 6.5 5.0 - 9.0 [facility] Protein, UA Neg NEG [facility] Urobilinogen, UA Norm NORM mg/dL [facility] Nitrite, UA Neg NEG [facility] Leuk Esterase Neg NEG [facility]LET[facility] ER [facility] 10/13/2004 12:0 0 EDT 10/13/2004 12:00 EDT Hilton Álvarez MD URINALYSIS ORDERABLES Jacquie l Result Performing Organization Address [facility] de Phone Number [facility] [address] [place] [address] * CT HEAD WO CONTRAST (10/13/2004 10:50 [...] new CT findings on 10/13/04 at 1245. shravan Narrative 03/02/2009 13:29 EDT H/O TUMOR RESECTION [...] new CT findings on 10/13/04 at 1245. shravan Trice Scott MD IMG CT ORDERABLES Final Re sult * BACTERIAL CULTURE, BLOOD (10/13/2004 10:25 EDT) Specimen Description Blood Right Arm Pediatric bottle received [facility] Result No growth [facility] Report Status Final [id number] [facility] 10/13/2004 10:2 5 EDT 10/13/2004 11:42 EDT Hilton Álvarez MD MICROBIOLOGY - GENERAL ORD ERABLES Final Result Performing Organization Address [facility] de Phone Number [facility] [address] [place] [address] * BACTERIAL CULTURE, BLOOD (10/13/2004 10:15 EDT) Specimen Description Blood Arterial Line [facility] Result No growth [facility] Report Status Final [id number] [facility] 10/13/2004 10:1 5 EDT 10/13/2004 11:41 EDT Hilton Álvarez MD MICROBIOLOGY - GENERAL ORD ERABLES Final Result Performing Organization Address [facility] de Phone Number [facility] [address] [place] [address] * (ABNORMAL) REFRACTOMETER SPECIFIC GRAVITY, URINE (10/13/2004 8:19 EDT) Pathologist [facility] Refractometer SG,Urine 1.052(H) 1.005 - 1.02 [facility] Comment: Refractometer specific gravity Results greater than 1.035 suggest possible interference from glucose or radiographic dye. 10/13/2004 8:19 EDT 10/13/2004 8:19 EDT Hilton Álvarez MD URINALYSIS ORDERABLES Jacquie l Result Performing Organization Address [facility] de Phone Number [facility] [address] [place] [address] * OSMOLALITY (10/13/2004 8:16 EDT) Osmolality Cintia 287 MOS/KG SHERI [facility] 10/13/2004 8:16 EDT 10/13/2004 8:16 EDT Hilton Álvarez MD CHEMISTRY & BLOOD GAS [facility] Final Result Performing Organization Address [facility] de Phone Number [facility] [address] [place] [address] * (ABNORMAL) ELECTROLYTES (10/13/2004 8:16 EDT) Pathologist [facility] Sodium 133(L) 136 - 145 mEq/L [facility] Potassium 3.8 3.6 - 5.2 mEq/L [facility] Chloride 99 96 - 110 mEq/L [facility] CO2 27 24 - 32 mEq/L [facility] 10/13/2004 8:16 EDT 10/13/2004 8:16 EDT Hilton Álvarez MD CHEMISTRY & BLOOD GAS ORDE [facility] Final Result Performing Organization Address [facility] de Phone Number [facility] [address] [place] [address] * PORTABLE CHEST 1 VIEW (10/13/2004 7:00 [...] change at the left base. Procedure Note Rodrick, Marlene C, MD - 03/02/2009 14 YO MALE W/P [...] /liu Alexus Davey MD IMG DIAGNOSTIC IMAGING ORDE RIDDHI Final Result * PTT (10/13/2004 5:52 EDT) Pathologist [facility] PTT 27 23 - 34 secs [facility] Comment:Therapeutic Heparin range: 72-120 seconds 10/13/2004 5:52 EDT 10/13/2004 5:52 EDT Result [facility] Hilton Álvarez MD HEMATOLOGY & PF4 ORDERABLE S Final Result [facility] [address] [place] [address] * (ABNORMAL) PROTIME (10/13/2004 5:52 EDT) Pro [...] de Phone Number [facility] [address] [place] [address] * CREATININE (10/13/2004 5:52 EDT) Creatinine 0.7 0.6 - 1.2 mg/dl [facility] 10/13/2004 5:52 EDT 10/13/2004 5:52 EDT us Hilton Álvarez MD HISTORICAL LAB FOR SQ LOAD Final Result Performing Organization Address [facility] de Phone Number [facility] [address] [place] [address] * (ABNORMAL) HEMAGRAM (10/13/2004 5:52 EDT) WBC 13.29(H) 4.5 - 13.0 K/cmm [facility] RBC 3.59(L) 4.50 - 5.30 M/cmm [facility] Hemoglobin 10.2(L) 13.0 - 16.0 gm/dl [facility] HCT 29.4(L) 37.0 - 49.0 % [facility] MCV 82 78 - 98 fl [facility] MCH 28.3 pg [facility] MCHC 34.5 gm/dl [facility] PLT 330(H) 156 - 312 K/cmm [facility] RDW-CV 15.8 % [facility] 10/13/2004 5:52 EDT 10/13/2004 5:52 EDT us Hilton Álvarez MD HEMATOLOGY & PF4 ORDERABLE S Final Result Performing Organization Address [facility] de Phone Number [facility] [address] [place] [address] * BUN (10/13/2004 5:52 EDT) BUN 16 8 - 21 mg/dl [facility] 10/13/2004 5:52 EDT 10/13/2004 5:52 EDT Hilton Álvarez MD CHEMISTRY & BLOOD GAS HERMES HANNON Final Result Performing Organization Address [facility] de Phone Number [facility] [address] [place] [address] * (ABNORMAL) BLOOD GAS, G3 ISTAT (10/13/2004 [...] [facility] Sample Type Arterial [facility] accounts payable accountant ID [id number] Test Performed by Respiratory [facility] 10/13/2004 4:34 EDT 10/13/2004 5:03 EDT Hilton Álvarez MD CHEMISTRY & BLOOD GAS HERMES HANNON Final Result Performing Organization Address [facility] Phone Number [facility] [address] [place] [address] * (ABNORMAL) REFRACTOMETER SPECIFIC GRAVITY, URINE (10/13/2004 4:33 EDT) Refractometer SG,Urine 1.036(H) 1.005 - 1.02 [facility] Comment: Refractometer specific gravity Results greater than 1.035 suggest possible interference from glucose or radiographic dye. 10/13/2004 4:33 EDT 10/13/2004 4:33 EDT us Hilton Álvarez MD URINALYSIS ORDERABLES Jacquie l Result Performing Organization Address [facility] de Phone Number [facility] [address] [place] [address] * SODIUM, URINE RANDOM (10/13/2004 4:33 EDT) Sodium, Ur 168.0 mEq/L [facility] 10/13/2004 4:33 EDT 10/13/2004 4:33 EDT Hilton Álvarez MD URINALYSIS ORDERABLES Jacquie l Result Performing Organization Address [facility] de Phone Number [facility] [address] [place] [address] * OSMOLALITY (10/13/2004 4:15 EDT) Osmolality Cintia 287 MOS/KG SHERI [facility] 10/13/2004 4:15 EDT 10/13/2004 4:33 EDT Hilton Álvarez MD CHEMISTRY & BLOOD GAS ORDEmerald HANNON Final Result Performing Organization Address [facility] de Phone Number [facility] [address] [place] [address] * (ABNORMAL) ELECTROLYTES (10/13/2004 4:15 EDT) Sodium 135(L) 136 - 145 mEq/L [facility] Potassium 3.7 3.6 - 5.2 mEq/L [facility] Chloride 101 96 - 110 mEq/L [facility] CO2 25 24 - 32 mEq/L [facility] 10/13/2004 4:15 EDT 10/13/2004 4:33 EDT Hilton Álvarez MD CHEMISTRY & BLOOD GAS ORDE RAB[facility] Final Result Performing Organization Address [facility] de Phone Number [facility] [address] [place] [address] * SODIUM (10/13/2004 2:03 EDT) Sodium 138 136 - 145 mEq/L [facility] 10/13/2004 2:03 EDT 10/13/2004 2:03 EDT Hilton Álvarez MD CHEMISTRY & BLOOD GAS [facility]DE [facility] Final Result Performing Organization Address [facility] de Phone Number [facility] [address] [place] [address] * (ABNORMAL) BLOOD GAS, G3 ISTAT (10/13/2004 0:01 EDT) pH, i-STAT 7.48(H) 7.35 - 7.45 [facility] pCO2, i-STAT 35 35 - 45 mmHg [facility] pO2, i-STAT 115(H) 85 - 100 mmHg [facility] TCO2, i-STAT 27 mEq/L [facility]NCY R [facility] O2 Saturation 99 % FLEMARSHA ER [facility] Temperature 36.2 C [facility] FIO2 .50 [facility] Vent Support MODE:IMV,TYPE:V olume,RATE=13,P EEP=05 [facility] Sample Type Arterial [facility] accounts payable accountant ID [id number] Test Performed by Respiratory [facility] 10/13/2004 0:01 EDT 10/13/2004 5:02 EDT Hilton Álvarez MD CHEMISTRY & BLOOD GAS [facility]DE [facility] Final Result Performing Organization Address [facility] de Phone Number [facility] [address] [place] [address] * PORTABLE CHEST 1 VIEW (10/12/2004 23:30 EDT) Anatomical Region Laterality Modality Other 10/12/2004 23:3 0 EDT Impressions 03/02/2009 13:28 EDT IMPRESSION: 1. New mild right lower lobe atelectasis. 2. Satisfactory positioning of tubes. /jv Narrative 03/02/2009 13:28 EDT HX BRAIN TUMOR S/P INTUBATION CHECK ET TUBE R/O EDEMA/EFFUSION PORTABLE CHEST 1 VIEW 10/12/04 [id number] Comparison is made with 10/10/04. The endotracheal [...] curvature of the stomach. Procedure Note Marlene Menash MD - 03/02/2009 HX BRAIN TUMOR S/P [...] atelectasis. 2. Satisfactory positioning of tubes. /jv Trice Scott MD IMG DIAGNOSTIC IMAGING ORD [...] left ethmoid sinuses. The ventricles are age-appropriate. /[facility] Narrative 03/02/2009 13:28 EDT S/P SUPRACELLAR TUMOR [...] left ethmoid sinuses. The ventricles are age-appropriate. /[facility] us Tony Gómez MD IMG CT ORDERABLES Final R esult * OSMOLALITY, URINE (10/12/2004 23:00 EDT) Osmolality, Ur 803 MOS/KG MELONIE [facility] 10/12/2004 23:0 0 EDT 10/12/2004 23:25 EDT Hilton Álvarez MD URINALYSIS ORDERABLES Jacquie nur Result [facility] [address] [place] [address] * SODIUM, URINE RANDOM (10/12/2004 23:00 EDT) Sodium, Ur 115.0 mEq/L [facility] 10/12/2004 23:0 0 EDT 10/12/2004 23:25 EDT Hilton Álvarez MD URINALYSIS ORDERABLES Jacquie l Result Performing Organization Address [facility] de Phone Number [facility] [address] [place] [address] * PTT (10/12/2004 23:00 EDT) Pathologist [facility] PTT 28 23 - 34 secs [facility] Comment:Therapeutic Heparin range: 72-120 seconds 10/12/2004 23:0 0 EDT 10/12/2004 23:25 EDT Hilton Álvarez MD HEMATOLOGY & PF4 ORDERABLE S Final Result Performing Organization Address [facility] Phone Number [facility] [address] [place] [address] * (ABNORMAL) PROTIME (10/12/2004 23:00 EDT) Pro [...] ORDERABLE S Final Result Performing Organization Address [facility] de Phone Number [facility] [address] [place] [address] * OSMOLALITY (10/12/2004 23:00 EDT) Osmolality Cintia 294 MOS/KG SHERI AL[facility] 10/12/2004 23:0 0 EDT 10/12/2004 23:25 EDT Hilton Álvarez MD CHEMISTRY & BLOOD GAS ORDE RABLES Final Result Performing Organization Address [facility] de Phone Number [facility] [address] [place] [address] * ELECTROLYTES (10/12/2004 23:00 EDT) Sodium 136 136 - 145 mEq/L [facility] Potassium 3.9 3.6 - 5.2 mEq/L [facility] Chloride 103 96 - 110 mEq/L [facility] CO2 26 24 - 32 mEq/L [facility] 10/12/2004 23:0 0 EDT 10/12/2004 23:25 EDT Hilton Álvarez MD CHEMISTRY & BLOOD GAS ORDE RABLES Final Result Performing Organization Address [facility] de Phone Number [facility] [address] [place] [address] * CREATININE (10/12/2004 23:00 EDT) Creatinine 0.8 0.6 - 1.2 mg/dl [facility] 10/12/2004 23:0 0 EDT 10/12/2004 23:25 EDT Hilton Álvarez MD HISTORICAL LAB FOR SQ LOAD Final Result Performing Organization Address [facility] de Phone Number [facility] [address] [place] [address] * (ABNORMAL) HEMAGRAM (10/12/2004 23:00 EDT) WBC 16.05(H) 4.5 - 13.0 K/cmm [facility] RBC 3.73(L) 4.50 - 5.30 M/cmm [facility] Hemoglobin 10.3(L) 13.0 - 16.0 gm/dl [facility] HCT 30.8(L) 37.0 - 49.0 % [facility] MCV 83 78 - 98 fl [facility] MCH 27.6 pg [facility] MCHC 33.5 gm/dl [facility] PLT 366(H) 156 - 312 K/cmm [facility] RDW-CV 15.6 % [facility] 10/12/2004 23:0 0 EDT 10/12/2004 23:25 EDT Hilton Álvarez MD HEMATOLOGY & PF4 ORDERABLE S Final Result Performing Organization Address [facility] de Phone Number [facility] [address] [place] [address] * BUN (10/12/2004 23:00 EDT) BUN 18 8 - 21 mg/dl [facility] 10/12/2004 23:0 0 EDT 10/12/2004 23:25 EDT Hilton Álvarez MD CHEMISTRY & BLOOD GAS ORDE [facility] Final Result Performing Organization Address [facility] de Phone Number [facility] [address] [place] [address] * CT ANGIO HEAD (10/12/2004 22:49 EDT) Anatomical Region Laterality Modality Other 10/12/2004 22:4 9 EDT Narrative 03/02/2009 13:28 EDT 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 VESSELS CT ANGIOGRAPHY OF THE INUPIAT OF [place]: 10/12/2004, 22:35 PM IMPRESSIONS: Anatomical variation of the [place] of [place], but no vascular occlusion is demonstrated. CLINICAL HISTORY: Status post craniopharyngeal resection with clipping bleeding vessel. Evaluate intracranial circulation. TECHNIQUE: Dynamic contrast enhanced scans of the [place] of [place] were obtained with off line [...] R/O EVAL. VESSELS CT ANGIOGRAPHY OF THE INUPIAT OF [place]: 10/12/2004, 22:35 PM IMPRESSIONS: Anatomical variation of the [place] of [place], but no vascular occlusion is demonstrated. CLINICAL HISTORY: Status post craniopharyngeal resection with clipping bleeding vessel. Evaluate intracranial circulation. TECHNIQUE: Dynamic contrast enhanced scans of the [place] of [place] were obtained with off line [...] the right PICA. /tns Trice Scott MD IM CT ORDERABLES Final Re sult * (ABNORMAL) [...] T 22(LL) 37 - 49 % [facility] Temperature Body Temp not noted; 37 degrees assumed. C [facility] FIO2 NOT GIVEN [facility] Sample Type Arterial [facility] accounts payable accountant ID [id number] Test performed by Anesthesia. [facility] 10/12/2004 19:3 1 EDT 10/13/2004 7:36 EDT us Hilton Álvarez MD CHEMISTRY & BLOOD GAS [facility] Final Result [facility] [address] [place] [address] * (ABNORMAL) BLOOD GAS, EG6 ISTAT (10/12/2004 [...] [facility] Sample Type Arterial [facility] accounts payable accountant ID [id number] Test performed by Anesthesia. [facility] 10/12/2004 16:3 9 EDT 10/13/2004 7:33 EDT us Hilton Álvarez MD CHEMISTRY & BLOOD GAS [facility] Final Result Performing Organization Address [facility] de Phone Number [facility] [address] [place] [address] * (ABNORMAL) BLOOD GAS, EG6 ISTAT (10/12/2004 15:29 EDT) pH, i-STAT 7.47(H) 7.35 - 7.45 [facility] pCO2, i-STAT 33(L) 35 - 45 mmHg [facility] pO2, i-STAT 154(H) 85 - 100 mmHg [facility] TCO2, i-STAT 25 mEq/L FLENANCY R [facility] O2 Saturation 100 % FLEMARSHA STEVENS [facility] Sodium, i-STAT 137 136 - 145 mEq/L [facility] Potassium, i-STAT 3.9 3.6 - 5.2 mEq/L [facility] Hematocrit,iSTA T 27(L) 37 - 49 % [facility] Temperature Body Temp not noted; 37 degrees assumed. C [facility] FIO2 NOT GIVEN [facility] Sample Type Arterial [facility] accounts payable accountant ID [id number] Test performed by Anesthesia. [facility] 10/12/2004 15:2 9 EDT 10/13/2004 7:32 EDT us Hilton Álvarez MD CHEMISTRY & BLOOD GAS [facility] Final Result Performing Organization Address [facility] de Phone Number [facility] [address] [place] [address] * GLUCOSE, GLUCOMETER (10/12/2004 15:21 EDT) Glucose, Fingerstick 109 70 - 110 mg/dl [facility] Rn Endocrinology ID [id number] Test Performed by Nursing Services [facility] 10/12/2004 15:2 1 EDT 10/13/2004 7:27 EDT us Hilton Álvarez MD CHEMISTRY & BLOOD GAS ORDE [facility] Final Result [facility] [address] [place] [address] * SURGICAL PATHOLOGY (10/12/2004 0:00 EDT) Pathology Report: SURGICAL PATHOLOGY REPORT Reports generated via electronic interface contain original data; however they are lacking the format of the original report. Caution should be taken when reading/interpreti ng unformatted reports. Name: ? MIGUEL ANGEL BURGOS ? Accession #: ? [id number] ? : ? 1990 (Age: 14) ??M [...] x 0.6 x 0.2 cm in aggregate. Cloth Piecer tissue is submitted for scrape preparation and [...] (B4). ??(Dr. Sanchez)/klb End of Report [facility] 10/12/2004 10/13/2004 10: 08 EDT Hilton Álvarez MD PATHOLOGY ORDERABLES Final Result [facility] [address] [place] [address] * CHEST PA (10/10/2004 14:35 EDT) Anatomical [...] The bony structures appear normal for age. /[facility] Procedure Note Delgado Valdes Jr., MD / Maxi Kirby MD - 03/03/2009 CYST R/O PICC PLACEMENT RIGHT BASILIC PA CHEST, 10/10/04 HISTORY: Patient status post PICC placement. FINDINGS: There is a right PIC catheter with its tip in the lower SVC near the right atrial junction. The cardiomediastinal silhouette is normal and the lungs are clear. The bony structures appear normal for age. /[facility] Hilton Álvarez MD IMG DIAGNOSTIC IMAGING ORD [...] secondary to the most recent transsphenoidal surgery. [facility] Narrative 03/02/2009 11:36 EDT S/P TRANSPENOIDAL CYST [...] secondary to the most recent transsphenoidal surgery. [facility] us Hilton Álvarez MD IMG MRI ORDERABLES Final R esult * REFRACTOMETER SPECIFIC GRAVITY, URINE (10/08/2004 16:00 EDT) Refractometer SG,Urine 1.022 1.005 - 1.02 [facility] Comment:Refractometer specif ic gravity 10/08/2004 16:0 0 EDT 10/08/2004 16:14 EDT Hilton Álvarez MD URINALYSIS ORDERABLES Jacquie l Result Performing Organization Address [facility] Phone Number [facility] [address] [place] [address] * OSMOLALITY, URINE (10/08/2004 8:30 EDT) Osmolality, Ur 906 MOS/KG [facility] 10/08/2004 8:30 EDT 10/08/2004 8:40 EDT Hilton Álvarez MD URINALYSIS ORDERABLES Jacquie l Result Performing Organization Address [facility] Phone Number [facility] [address] [place] [address] * SODIUM, URINE RANDOM (10/08/2004 8:30 EDT) Pathologist [facility] Sodium, Ur 137.0 mEq/L [facility] 10/08/2004 8:30 EDT 10/08/2004 8:40 EDT us Hilton Álvarez MD URINALYSIS ORDERABLES Jacquie l Result Performing Organization Address [facility] de Phone [facility] [address] [place] [address] * OSMOLALITY, URINE (10/08/2004 0:30 EDT) Osmolality, Ur 727 MOS/KG [facility] 10/08/2004 0:30 EDT 10/08/2004 0:32 EDT us Hilton Álvarez MD URINALYSIS ORDERABLES Jacquie l Result Performing Organization Address City/[facility] de Phone Number [facility] [address] [place] [address] * SODIUM, URINE RANDOM (10/08/2004 0:30 EDT) [facility] Sodium, Ur 186.0 mEq/L [facility] 10/08/2004 0:30 EDT 10/08/2004 0:32 EDT Hilton Álvarez MD URINALYSIS ORDERABLES Jacquie l Result Performing Organization Address [facility] de Phone Number [facility] [address] [place] [address] * OSMOLALITY (10/08/2004 0:25 EDT) [facility] Osmolality Cintia 302 MOS/KG [facility] 10/08/2004 0:25 EDT 10/08/2004 0:32 EDT Hilton Álvarez MD CHEMISTRY & BLOOD GAS ORDE [facility] Final Result Performing Organization Address [facility] de Phone Number [facility] [address] [place] [address] * (ABNORMAL) ELECTROLYTES (10/08/2004 0:25 EDT) [facility] Sodium 145 136 - 145 mEq/L [facility] Potassium 3.2(L) 3.6 - 5.2 mEq/L [facility] Chloride 116(H) 96 - 110 mEq/L [facility] CO2 19(L) 24 - 32 mEq/L [facility] 10/08/2004 0:25 EDT 10/08/2004 0:32 EDT Hilton Álvarez MD CHEMISTRY & BLOOD GAS ORDE [facility] Final Result Performing Organization Address [facility] de Phone Number [facility] [address] [place] [address] * REFRACTOMETER SPECIFIC GRAVITY, URINE (10/07/2004 19:00 EDT) Refractometer SG,Urine 1.021 1.005 - 1.02 [facility] Comment:Refractometer specif ic gravity 10/07/2004 19:0 0 EDT 10/07/2004 19:38 EDT Hilton Álvarez MD URINALYSIS ORDERABLES Jacquie l Result Performing Organization Address [facility] Phone Number [facility] [address] [place] [address] * OSMOLALITY, URINE (10/07/2004 19:00 EDT) Osmolality, Ur 817 MOS/KG [facility] 10/07/2004 19:0 0 EDT 10/07/2004 19:38 EDT Hilton Álvarez MD URINALYSIS ORDERABLES Jacquie l Result Performing Organization Address [facility] [place] [address] * SODIUM, URINE RANDOM (10/07/2004 19:00 EDT) Sodium, Ur 272.0 mEq/L [facility] 10/07/2004 19:0 0 EDT 10/07/2004 19:38 EDT Hilton Álvarez MD URINALYSIS ORDERABLES Jacquie l Result Performing Organization Address [facility] Phone Number [facility] [address] [place] [address] * OSMOLALITY (10/07/2004 19:00 EDT) Osmolality Cintia 300 MOS/KG SHERI ALMEIDA [facility] 10/07/2004 19:0 0 EDT 10/07/2004 19:37 EDT Hilton Álvarez MD CHEMISTRY & BLOOD GAS [facility] Final Result Performing Organization Address [facility] Phone Number [facility] [address] [place] [address] * ELECTROLYTES (10/07/2004 19:00 EDT) Sodium 144 136 - 145 mEq/L [facility] Potassium 3.8 3.6 - 5.2 mEq/L [facility] Chloride 109 96 - 110 mEq/L [facility] CO2 25 24 - 32 mEq/L [facility] 10/07/2004 19:0 0 EDT 10/07/2004 19:37 EDT Hilton Álvarez MD CHEMISTRY & BLOOD GAS ORDE [facility] Final Result Performing Organization Address [facility] de Phone Number [facility] [address] [place] [address] * REFRACTOMETER SPECIFIC GRAVITY, URINE (10/07/2004 11:47 EDT) Pathologist [facility] Refractometer SG,Urine 1.019 1.005 - 1.02 [facility] Comment: Refractometer specific gravity Results greater than 1.035 suggest possible interference from glucose or radiographic dye. 10/07/2004 11:4 7 EDT 10/07/2004 11:47 EDT Hilton Álvarez MD URINALYSIS ORDERABLES Jacquie l Result Performing Organization Address [facility] de Phone Number [facility] [address] [place] [address] * OSMOLALITY, URINE (10/07/2004 11:47 EDT) Pathologist [facility] Osmolality, Ur 801 MOS/KG [facility] 10/07/2004 11:4 7 EDT 10/07/2004 11:47 EDT Hilton Álvarez MD URINALYSIS ORDERABLES Jacquie l Result Performing Organization Address [facility] de Phone Number [facility] [address] [place] [address] * SODIUM, URINE RANDOM (10/07/2004 11:47 EDT) Sodium, Ur 198.0 mEq/L [facility] 10/07/2004 11:4 7 EDT 10/07/2004 11:47 EDT us Hilton Álvarez MD URINALYSIS ORDERABLES Jacquie l Result Performing Organization Address [facility] de Phone Number [facility] [address] [place] [address] * REFRACTOMETER SPECIFIC GRAVITY, URINE (10/07/2004 4:20 EDT) Refractometer SG,Urine 1.017 1.005 - 1.02 [facility] Comment:Refractometer specif ic gravity 10/07/2004 4:20 EDT 10/07/2004 4:20 EDT us Hilton Álvarez MD URINALYSIS ORDERABLES Jacquie l Result Performing Organization Address [facility] de Phone Number [facility] [address] [place] [address] * OSMOLALITY, URINE (10/07/2004 4:20 EDT) Osmolality, Ur 682 MOS/KG [facility] 10/07/2004 4:20 EDT 10/07/2004 4:20 EDT us Hilton Álvarez MD URINALYSIS ORDERABLES Jacquie l Result Performing Organization Address [facility] de Phone Number [facility] [address] [place] [address] * SODIUM, URINE RANDOM (10/07/2004 4:20 EDT) Sodium, Ur 122.0 mEq/L [facility] 10/07/2004 4:20 EDT 10/07/2004 4:20 EDT us Hilton Álvarez MD URINALYSIS ORDERABLES Jacquie l Result Performing Organization Address [facility] de Phone Number [facility] [address] [place] [address] * OSMOLALITY (10/07/2004 4:20 EDT) Pathologist [facility] Osmolality Cintia 304 MOS/KG SHERI [facility] 10/07/2004 4:20 EDT 10/07/2004 4:20 EDT Hilton Álvaerz MD CHEMISTRY & BLOOD GAS ORDE [facility] Final Result Performing Organization Address [facility] de Phone Number [facility] [address] [place] [address] * (ABNORMAL) ELECTROLYTES (10/07/2004 4:20 EDT) [facility] Sodium 145 136 - 145 mEq/L [facility] Potassium 3.9 3.6 - 5.2 mEq/L [facility] Chloride 111(H) 96 - 110 mEq/L [facility] CO2 25 24 - 32 mEq/L [facility] 10/07/2004 4:20 EDT 10/07/2004 4:20 EDT Hilton Álvarez MD CHEMISTRY & BLOOD GAS ORDE [facility] Final Result Performing Organization Address [facility] Phone Number [facility] [address] [place] [address] * REFRACTOMETER SPECIFIC GRAVITY, URINE (10/06/2004 18:33 EST) [facility] Refractometer SG,Urine 1.021 1.005 - 1.02 [facility] Comment: Refractometer specific gravity Results greater than 1.035 suggest possible interference from glucose or radiographic dye. 10/06/2004 18:3 3 EST 10/06/2004 18:33 EST Hilton Álvarez MD URINALYSIS ORDERABLES Jacquie l Result Performing Organization Address [facility] de Phone Number [facility] [address] [place] [address] * OSMOLALITY, URINE (10/06/2004 18:33 EST) Osmolality, Ur 782 MOS/KG [facility] 10/06/2004 18:3 3 EST 10/06/2004 18:33 EST Hilton Álvarez MD URINALYSIS ORDERABLES Jacquie l Result Performing Organization Address [facility] de Phone Number [facility] [address] [place] [address] * SODIUM, URINE RANDOM (10/06/2004 18:33 EST) Sodium, Ur 138.0 mEq/L [facility] 10/06/2004 18:3 3 EST 10/06/2004 18:33 EST Hilton Álvarez MD URINALYSIS ORDERABLES Jacquie l Result Performing Organization Address [facility] Phone Number [facility] [address] [place] [address] * OSMOLALITY (10/06/2004 18:32 EST) Osmolality Cintia 303 MOS/KG SHERI ALMEIDA [facility] 10/06/2004 18:3 2 EST 10/06/2004 18:32 EST Hilton Álvarez MD CHEMISTRY & BLOOD GAS [facility] Final Result Performing Organization Address [facility] Phone Number [facility] [address] [place] [address] * (ABNORMAL) ELECTROLYTES (10/06/2004 18:32 EST) Sodium 147(H) 136 - 145 mEq/L [facility] Potassium 3.6 3.6 - 5.2 mEq/L [facility] Chloride 111(H) 96 - 110 mEq/L [facility] CO2 24 24 - 32 mEq/L [facility] 10/06/2004 18:3 2 EST 10/06/2004 18:32 EST us Hilton Álvarez MD CHEMISTRY & BLOOD GAS ORDE RABLES Final Result [facility] [address] [place] [address] * OSMOLALITY (10/06/2004 14:45 EST) Osmolality Cintia 306 MOS/KG MELONIENoe ELLE [facility] 10/06/2004 14:4 5 EST 10/06/2004 14:51 EST us Hilton Álvarez MD CHEMISTRY & BLOOD GAS [facility]DE [facility] Final Result Performing Organization Address [facility] de Phone Number [facility] [address] [place] [address] * (ABNORMAL) ELECTROLYTES (10/06/2004 14:45 EST) Pathologist [facility] Sodium 146(H) 136 - 145 mEq/L [facility] Potassium 3.7 3.6 - 5.2 mEq/L [facility] Chloride 111(H) 96 - 110 mEq/L [facility] CO2 26 24 - 32 mEq/L [facility] 10/06/2004 14:4 5 EST 10/06/2004 14:51 EST Hilton Álvarez MD CHEMISTRY & BLOOD GAS ORDE RABLES Final Result Performing Organization Address [facility] de Phone Number [facility] [address] [place] [address] * REFRACTOMETER SPECIFIC GRAVITY, URINE (10/06/2004 14:45 EST) Pathologist [facility] Refractometer SG,Urine 1.021 1.005 - 1.02 [facility] 10/06/2004 14:4 5 EST 10/06/2004 14:52 EST us Hilton Álvarez MD URINALYSIS ORDERABLES Jacquie l Result [facility] [address] [place] [address] * OSMOLALITY, URINE (10/06/2004 14:45 EST) Osmolality, Ur 762 MOS/KG [facility] 10/06/2004 14:4 5 EST 10/06/2004 14:52 EST Hilton Álvarez MD URINALYSIS ORDERABLES Jacquie l Result Performing Organization Address [facility] Phone Number [facility] [address] [place] [address] * SODIUM, URINE RANDOM (10/06/2004 14:45 EST) Sodium, Ur 132.0 mEq/L [facility] 10/06/2004 14:4 5 EST 10/06/2004 14:52 EST Hilton Álvarez MD URINALYSIS ORDERABLES Jacquie l Result Performing Organization Address [facility] Phone Number [facility] [address] [place] [address] * OSMOLALITY (10/06/2004 11:00 EST) Osmolality Cintia 299 MOS/KG SHERI ALMEIDA [facility] 10/06/2004 11:0 0 EST 10/06/2004 11:08 EST Hilton Álvarez MD CHEMISTRY & BLOOD GAS [facility] Final Result Performing Organization Address [facility] de Phone Number [facility] [address] [place] [address] * ELECTROLYTES (10/06/2004 11:00 EST) Sodium 145 136 - 145 mEq/L [facility] Potassium 3.6 3.6 - 5.2 mEq/L [facility] Chloride 110 96 - 110 mEq/L [facility] CO2 25 24 - 32 mEq/L [facility] 10/06/2004 11:0 0 EST 10/06/2004 11:08 EST Hilton Álvarez MD CHEMISTRY & BLOOD GAS [facility] Final Result Performing Organization Address [facility] de [place] [address] * REFRACTOMETER SPECIFIC GRAVITY, URINE (10/06/2004 11:00 EST) Refractometer SG,Urine 1.019 1.005 - 1.02 [facility] 10/06/2004 11:0 0 EST 10/06/2004 11:10 EST Hilton Álvarez MD URINALYSIS ORDERABLES Jacquie l Result Performing Organization Address [facility] Phone [place] [address] * OSMOLALITY, URINE (10/06/2004 11:00 EST) Osmolality, Ur 735 MOS/KG [facility] 10/06/2004 11:0 0 EST 10/06/2004 11:10 EST Hilton Álvarez MD URINALYSIS ORDERABLES Jacquie l Result Performing Organization Address [facility] de [place] [address] * SODIUM, URINE RANDOM (10/06/2004 11:00 EST) Sodium, Ur 140.0 mEq/L [facility] 10/06/2004 11:0 0 EST 10/06/2004 11:10 EST Hilton Álvarez MD URINALYSIS ORDERABLES Jacquie l Result Performing Organization Address [facility] de [place] [address] * OSMOLALITY, URINE (10/06/2004 6:40 EST) Osmolality, Ur 522 MOS/KG [facility] 10/06/2004 6:40 EST 10/06/2004 7:03 EST Hilton Álvarez MD URINALYSIS ORDERABLES Jacquie l Result Performing Organization Address [facility] Phone Number [facility] [address] [place] [address] * SODIUM, URINE RANDOM (10/06/2004 6:40 EST) Sodium, Ur 92.0 mEq/L [facility] 10/06/2004 6:40 EST 10/06/2004 7:03 EST Hilton Álvarez MD URINALYSIS ORDERABLES Jacquie l Result Performing Organization Address [facility] Phone Number [facility] [address] [place] [address] * OSMOLALITY (10/06/2004 6:40 EST) Osmolality Cintia 301 MOS/KG [facility] 10/06/2004 6:40 EST 10/06/2004 7:01 EST Hilton Álvarez MD CHEMISTRY & BLOOD GAS ORDE RABLES Final Result Performing Organization Address [facility] Phone Number [facility] [address] [place] [address] * ELECTROLYTES (10/06/2004 6:40 EST) Sodium 142 136 - 145 mEq/L [facility] Potassium 3.9 3.6 - 5.2 mEq/L [facility] Chloride 108 96 - 110 mEq/L [facility] CO2 25 24 - 32 mEq/L [facility] 10/06/2004 6:40 EST 10/06/2004 7:01 EST Hilton Álvarez MD CHEMISTRY & BLOOD GAS ORDE RABLES Final Result Performing Organization Address [facility] de Phone Number [facility] [address] [place] [address] * OSMOLALITY (10/06/2004 2:44 EST) Osmolality Cintia 295 MOS/KG [facility] 10/06/2004 2:44 EST 10/06/2004 2:44 EST Hilton Álvarez MD CHEMISTRY & BLOOD GAS ORDE RABLES Final Result Performing Organization Address [facility] de Phone Number [facility] [address] [place] [address] * ELECTROLYTES (10/06/2004 2:44 EST) Sodium 143 136 - 145 mEq/L [facility] Potassium 4.0 3.6 - 5.2 mEq/L [facility] Chloride 107 96 - 110 mEq/L [facility] CO2 28 24 - 32 mEq/L [facility] 10/06/2004 2:44 EST 10/06/2004 2:44 EST Hilton Álvarez MD CHEMISTRY & BLOOD GAS ORDE RABLES Final Result Performing Organization Address [facility] Phone Number [facility] [address] [place] [address] * OSMOLALITY, URINE (10/06/2004 2:43 EST) Osmolality, Ur 628 MOS/KG MELONIETEA HER [facility] 10/06/2004 2:43 EST 10/06/2004 2:43 EST Hilton Álvarez MD URINALYSIS ORDERABLES Jacquie l Result Performing Organization Address [facility] de Phone Number [facility] [address] [place] [address] * SODIUM, URINE RANDOM (10/06/2004 2:43 EST) Sodium, Ur 115.0 mEq/L [facility] 10/06/2004 2:43 EST 10/06/2004 2:43 EST Hilton Álvarez MD URINALYSIS ORDERABLES Jacquie l Result [facility] [address] [place] [address] * OSMOLALITY, URINE (10/05/2004 22:11 EST) Osmolality, Ur 229 MOS/KG MELONIETEA HER [facility] 10/05/2004 22:1 1 EST 10/05/2004 22:11 EST us Hilton Álvarez MD URINALYSIS ORDERABLES Jacquie l Result [facility] [address] [place] [address] * SODIUM, URINE RANDOM (10/05/2004 22:11 EST) Sodium, Ur 28.0 mEq/L [facility] 10/05/2004 22:1 1 EST 10/05/2004 22:11 EST Hilton Álvarez MD URINALYSIS ORDERABLES Jacquie l Result Performing Organization Address [facility] de Phone Number [facility] [address] [place] [address] * OSMOLALITY (10/05/2004 22:10 EST) Osmolality Cintia 297 MOS/KG SHERI ELLE [facility] 10/05/2004 22:1 0 EST 10/05/2004 22:10 EST Hilton Álvarez MD CHEMISTRY & BLOOD GAS ORDE RABLES Final Result [facility] [address] [place] [address] * ELECTROLYTES (10/05/2004 22:10 EST) Sodium 144 136 - 145 mEq/L [facility] Potassium 3.9 3.6 - 5.2 mEq/L [facility] Chloride 107 96 - 110 mEq/L [facility] CO2 26 24 - 32 mEq/L [facility] 10/05/2004 22:1 0 EST 10/05/2004 22:10 EST us Hilton Álvarez MD CHEMISTRY & BLOOD GAS [facility] Final Result [facility] [address] [place] [address] * CT HEAD WO CONTRAST (10/05/2004 20:26 [...] 2. No hydrocephalus or intraparenchymal hemorrhage identified. /[facility] Trice Scott MD IMG CT ORDERABLES Final Re sult * OSMOLALITY, URINE (10/05/2004 18:24 EST) Osmolality, Ur 754 MOS/KG [facility] 10/05/2004 18:2 4 EST 10/05/2004 18:29 EST Hilton Álvarez MD URINALYSIS ORDERABLES Jacquie nur Result [facility] [address] [place] [address] * SODIUM, URINE RANDOM (10/05/2004 18:24 EST) Sodium, Ur 216.0 mEq/L [facility] 10/05/2004 18:2 4 EST 10/05/2004 18:29 EST Hilton Álvarez MD URINALYSIS ORDERABLES Jacquie l Result Performing Organization Address [facility] de Phone Number [facility] [address] [place] [address] * OSMOLALITY (10/05/2004 18:06 EST) Osmolality Cintia 294 MOS/KG SHERI ALMEIDA [facility] 10/05/2004 18:0 6 EST 10/05/2004 18:06 EST Hilton Álvarez MD CHEMISTRY & BLOOD [facility]DE [facility] Final Result Performing Organization Address [facility] de Phone Number [facility] [address] [place] [address] * ELECTROLYTES (10/05/2004 18:06 EST) Sodium 141 136 - 145 mEq/L [facility] Potassium 4.4 3.6 - 5.2 mEq/L [facility] Chloride 106 96 - 110 mEq/L [facility] CO2 26 24 - 32 mEq/L [facility] 10/05/2004 18:0 6 EST 10/05/2004 18:06 EST Hilton Álvarez MD CHEMISTRY & BLOOD GAS ORDE RABLES Final Result Performing Organization Address [facility] de Phone Number [facility] [address] [place] [address] * OSMOLALITY, URINE (10/05/2004 15:36 EST) Osmolality, Ur 406 MOS/KG [facility] 10/05/2004 15:3 6 EST 10/05/2004 15:36 EST Hilton Álvarez MD URINALYSIS ORDERABLES Jacquie l Result Performing Organization Address [facility] de Phone Number [facility] [address] [place] [address] * SODIUM, URINE RANDOM (10/05/2004 15:36 EST) Sodium, Ur 109.0 mEq/L [facility] 10/05/2004 15:3 6 EST 10/05/2004 15:36 EST Hilton Álvarez MD URINALYSIS ORDERABLES Jacquie l Result Performing Organization Address [facility] de Phone Number [facility] [address] [place] [address] * OSMOLALITY (10/05/2004 14:19 EST) Pathologist [facility] Osmolality Cintia 296 MOS/KG SH[facility]I [facility] 10/05/2004 14:1 9 EST 10/05/2004 14:19 EST Hilton Álvarez MD CHEMISTRY & BLOOD GAS ORDE RABLES Final Result Performing Organization Address [facility] de Phone Number [facility] [address] [place] [address] * ELECTROLYTES (10/05/2004 14:19 EST) Pathologist [facility] Sodium 141 136 - 145 mEq/L [facility] Potassium 4.3 3.6 - 5.2 mEq/L [facility] Chloride 108 96 - 110 mEq/L [facility] CO2 26 24 - 32 mEq/L [facility] 10/05/2004 14:1 9 EST 10/05/2004 14:19 EST Hilton Álvarez MD CHEMISTRY & BLOOD GAS ORDE RABLES Final Result Performing Organization Address [facility] [facility] de Phone Number [facility] [address] [place] [address] * CREATININE (10/05/2004 14:19 EST) Pathologist [facility] Creatinine 0.7 0.6 - 1.2 mg/dl [facility] 10/05/2004 14:1 9 EST 10/05/2004 14:19 EST Hilton Álvarez MD HISTORICAL LAB FOR SQ LOAD Final Result Performing Organization Address City/Va Hospital/ZIP Co de Phone Number [facility] [address] [place] [address] * (ABNORMAL) HEMAGRAM (10/05/2004 14:19 EST) WBC 5.73 4.5 - 13.0 K/cmm [facility] RBC 3.87(L) 4.50 - 5.30 M/cmm [facility] Hemoglobin 10.6(L) 13.0 - 16.0 gm/dl [facility] HCT 29.6(L) 37.0 - 49.0 % [facility] MCV 76(L) 78 - 98 fl [facility] MCH 27.4 pg [facility] MCHC 35.9 gm/dl [facility] PLT 268 156 - 312 K/cmm [facility] RDW-CV 14.9 % [facility] 10/05/2004 14:1 9 EST 10/05/2004 14:19 EST us Hilton Álvarez MD HEMATOLOGY & PF4 ORDERABLE S Final Result Performing Organization Address [facility]/Va Hospital/RUST Co de Phone Number [facility] [address] [place] [address] * BUN (10/05/2004 14:19 EST) BUN 16 8 - 21 mg/dl [facility] 10/05/2004 14:1 9 EST 10/05/2004 14:19 EST Hilton Álvarez MD CHEMISTRY & BLOOD GAS ORDE RABLES Final Result Performing Organization Address City/Va Hospital/ZIP Co de Phone Number [facility] [address] [place] [address] * (ABNORMAL) GLUCOSE, GLUCOMETER (10/05/2004 14:16 EST) Glucose, Fingerstick 123(H) 70 - 110 mg/dl [facility] Rn Endocrinology ID [id number] Test Performed by Nursing Services [facility] 10/05/2004 14:1 6 EST 10/06/2004 0:42 EST us Hilton Álvarez MD CHEMISTRY & BLOOD GAS HERMES HANNON Final Result [facility] [address] [place] [address] documented in this encounter Visit Diagnoses Not on filedocumented in this encounter
--- OUTSIDE RECORDS SUMMARY | 2024-07-22 13:50 | XMS_ITS | Encounter Summary ---
Author Organization [facility] [place] [address] Care Team Providers Care Media Promoter Name Role Phone Jimbo More Primary Care Provider + Reason for Referral * Diagnostic Test (Routine) - Authorized Specialty Diagnoses / Procedures Referred By Duyen bui Referred To Contact Radiology Diagnoses Schwannoma Procedures MRI Brain wwo Contrast (Generic) Eron Barriga MD [facility] [place] [address] [place] [address] Referral ID Status Reason Start Date Expiration Date Visits Requested Visits Authorized [id number] Authorized Specialty Service Requested 07/20/2024 01/17/2026 1 1 Encounter Details Date Type Department Care Team (Late st Contact Info) Description 07/20/2024 1:30 PM EST Office [place] [address] Eron Barriga MD [facility] [place] [address] Schwannoma Social History Tobacco Use Types Packs/Day Years Used Date Smoking Tobacco: Never Smokeless Tobacco: Never Alcohol Use Standard Drinks/Week Comments No 0 (1 standard drink = 0.6 oz pur e alcohol) [facility] Utilities Answer Date Recorded In the [...] were you homeless or living in a residential (including now)? 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 Has blindness, completely hypopituitarism, epilepsy. Recently admitted to [facility] for hyponatremia. Found to have lesion in right middle fossa c/w schwannoma. Was reportedly seen on September CT (not available) but is not evident on 2018 CT. Mass measures max 35 mm and extends from medial middle fossa/cav sinus thru Meckel's cave slightly.ALso notable for aneurysm clip deep to this mass near [employer]. Exam. Pt minimally interactive. No obvious EOM weakness. No hx of facial pain/numbness. Imp: Difficult situation given pt's poor functional status. Surgery and radiation are treatment options but each carry some degree of risk, especially in setting where pt has already experienced significant brain injury. Family to discuss care wishes. I did explain that if they decided for treatment, we should do so before tumor enlarges significantly (I.e., within upcoming months rather than several years from now). documented in this encounter Plan of Treatment Scheduled Orders Name Type Priority Associated Diagnoses Orde r Schedule MRI Brain wwo Contrast (Generic) Imaging Routine Schwannoma Expected: 01/17/2025, Expires: 07/19/2025 documented as of this encounter Visit Diagnoses Diagnosis Schwannoma Other benign neoplasm of connective and other soft tissue of unspecified site documented in this encounter Care Teams Media Promoter Relationship Specialty Start Date End Date Jimbo More [place] [place] [address] PCP - General Internal Medicine 06/18/24 documented as of this encounter
--- OUTSIDE RECORDS SUMMARY | 2024-07-22 13:50 | XMS_ITS | Encounter Summary ---
Author Organization [facility] Address [address] [place] [address] Care Team Providers Care Heat Treating Operator Name Role Phone Yan Demarco MD Primary Care Provider [phone] Corin Skinner MD Primary Care Provider Akil Serrano MD Primary Care Provider [phone] Encounter Details Date Type Department Care Team (Late st Contact Info) Description 10/15/2004 Before PRISM Converted Visit (Maple) [facility] - Maple conversion [address] [place] [address] Hilton Malloy MD [address] [place] [phone] Social History Tobacco Use Types Packs/Day Years Used Date Smoking Tobacco: Never Assessed Sex and Gender Information Value Date Recorded Sex Assigned at Not on file Legal Sex Male 18:35 EST Gender Identity Not on file Sexual Orientation Not on file documented as of this encounter Procedure Notes * Ricki, Conv Sales Assoc - 02/13/2011 1256 EDT DATE: 10/12/2004 SURGEON: HILTON MALLOY MD UPPERS EDGE BURNISHER: REYNA OLEA MD, ANCELMO FRIEDMAN MD, HOMRA RAINEY MD PREOPERATIVE DIAGNOSIS: Craniopharyngioma POSTOPERATIVE DIAGNOSIS: [...] he finished, we placedthe patient in the Voca three-point cd reactor operator head fixation and then registered him with [...] suture. Then thedura is stripped with a [place] #3 and an air drill is used [...] used. The arachnoid is opened with a [place] blade and the sylvian fissure is split. [...] skin. The patient is removed from the Voca headholder. The pupils appear 3 mm and [...] 10/15/2004 10:37:52 - chelle Voice ID - [id number] Document ID - [id number] cc: HOMAR DIAZ MD, REFERRING PHYSICIAN HILTON MALLOY MD, ATTENDING PHYSICIAN This document has been electronically signed by HILTON MALLOY MD on 10/16/2004 16:06:32. documented in this encounter Plan of Treatment Upcoming Encounters Date Type Department Care Team (Late st Contact Info) Description 10/01/2024 13:40 EDT Office Visit [facility] Endocrinology - [address] [address] Shonjalyn Wilder Erik, DO [address] [facility] [address] [place] [address] documented as of this encounter Visit Diagnoses Not on filedocumented in this encounter Care Teams Heat Treating Operator Relationship Specialty Start Date End Date Yan Demarco MD [address] [place] [address] PCP - General 08/22/09 02/20/10 Corin Skinner MD [address] [place] [phone] PCP - General 10/24/08 08/21/09 Akil Serrano MD [address] [facility] [address] [place] [address] PCP - General 02/21/10 04/16/11 documented as of this encounter
--- OUTSIDE RECORDS SUMMARY | 2024-07-22 13:50 | XMS_ITS | Encounter Summary ---
Author Organization [facility] Address [address] [place] [address] Care Team Providers Care Passenger Train Braker Name Role Phone Yan Demarco MD Primary Care Provider Corin Skinner MD Primary Care Provider Akil Serrano MD Primary Care Provider [phone] Encounter Details Date Type Department Care Team (Late st Contact Info) Description 10/15/2004 Before PRISM Converted Visit (Maple) [facility] - Maple conversion [address] [place] [address] Jose Armando Alejo MD [address] [place] [address] Social History Tobacco Use Types Packs/Day Years [...] 10/01/2024 13:40 EDT Office Visit [facility] Endocrinology - [facility] [address] [place] [address] Wilder Zaidi, [address] [facility] [address] [place] [address] documented as of this encounter Visit Diagnoses Not on filedocumented in this encounter Care Teams Passenger Train Braker Relationship Specialty Start Date End Date Yan Demarco MD [address] [place] [address] PCP - General 08/22/09 02/20/10 Corin Skinner MD [address] [place] [phone] PCP - General 10/24/08 08/21/09 Akil Serrano MD [address] [address] PCP - General 02/21/10 04/16/11 documented as of this encounter
--- OUTSIDE RECORDS SUMMARY | 2024-07-22 13:50 | XMS_ITS | Encounter Summary ---
Author Organization [facility] Address [address] [place] [address] Care Team Providers Care Video Production Engineer Name Role Phone Yan Demarco MD Primary Care Provider Corin Skinner MD Primary Care Provider Akil Serrano MD Primary Care Provider [phone] Encounter Details Date Type Department Care Team (Late st Contact Info) Description 09/21/2004 Before PRISM Converted Visit (Maple) [facility] - Maple conversion [address] [place] [address] Ade Malloy MD [address] [place] [phone] Social History Tobacco Use Types Packs/Day Years Used Date Smoking Tobacco: Never Assessed Sex and Gender Information Value Date Recorded Sex Assigned at Not on file Legal Sex Male 18:35 EST Gender Identity Not on file Sexual Orientation Not on file documented as of this encounter Progress Notes * Ricki, Conv Flare Man - 02/13/2011 1150 EDT INITIAL EVALUATION September 20, 2004 Kris Drew MD [address] [place] [address] [place] [address] Drew, I had the pleasure [...] discussion with the mother and the social media content manager about the risks of surgery including , paralysis,stroke, blindness, cerebral spinal fluid leak, pituitary and hypothalamic damage, bleeding requiring blood transfusion, need for fci hormone replacement, seizures. They understand this and would like to proceed;knowing that the biggest threat here is that if it is left untreated it certainly will threaten hisgood eye. I will set him up for surgery on the of this month. I would like him to see our pediatric mechanical design drafter Dr. Edwards, and I have ordered a [...] MD on 09/24/2004 09:42:19. ADE MALLOY MD Core Finisher [facility] Division of Neurological Surgery - ADE MALLOY MD - an Voice ID: [id number] Document ID: [id number] CC: KRIS MCKENNA MD documented in this encounter Plan of Treatment Upcoming Encounters Date Type Department Care Team (Late st Contact Info) Description 10/01/2024 13:40 EDT Office Visit [facility] Endocrinology - [facility] [address] [place] [address] Wilder Zaidi, [address] [facility] [address] [place] [address] documented as of this encounter Visit Diagnoses Not on filedocumented in this encounter Care Teams Video Production Engineer Relationship Specialty Start Date End Date Yan Demarco MD [address] [place] [phone] PCP - General 08/22/09 02/20/10 Corin Skinner MD [address] [place] [phone] PCP - General 10/24/08 08/21/09 Akil Serrano MD [address] [place] [address],R[address] [place] [address] PCP - General 02/21/10 04/16/11 documented as of this encounter
--- OUTSIDE RECORDS SUMMARY | 2024-07-22 13:50 | XMS_ITS | Encounter Summary ---
Author Organization [facility] [place] [address] Care Team Providers Care Technician Automatic Name Role Phone Jimbo More Primary Care Provider + Encounter Details Date Type Department Care Team (Latest Contact Info) Description 07/20/2024 Travel Social History Tobacco Use Types Packs/Day Years Used Date Smoking Tobacco: Never Smokeless Tobacco: Never Alcohol Use Standard Drinks/Week Comments No 0 (1 standard drink = 0.6 oz pur e alcohol) [facility] Utilities Answer Date Recorded In the [...] any time in the past 12 m [facility], were you homeless or living in a m[facility]p (including now)? No 2024 DH IPV Inpatient [...] on filedocumented in this encounter Care Teams Technician Automatic Relationship Specialty Start Date End Date Jimbo More [place] [place] [address] PCP - General Internal Medicine 06/18/24 documented as of this encounter
--- OUTSIDE RECORDS SUMMARY | 2024-07-22 13:50 | XMS_ITS | Encounter Summary ---
Author Organization [facility] Address [address] [place] [address] Care Team Providers Care Poultry Processing Supervisor Name Role Phone Yan Demarco MD Primary Care Provider Corin Skinner MD Primary Care Provider Akil Serrano MD Primary Care Provider [phone] Encounter Details Date Type Department Care Team (Late st Contact Info) Description 11/15/2004 Before PRISM Converted Visit (Maple) [facility] - Maple conversion [address] [place] [address] Kylie Larson MD [address] [place] [phone] Social History Tobacco Use Types Packs/Day Years [...] last couple of days. Nursing over at [facility] will review his nursing care needs to see if they can provide the appropriate level of care for him. We will continue to monitor him over the next couple of days to assess for appropriate transition to the Rehab Service on Friday. d - 11/15/2004 16:16:25 - KYLIE LARSON MD t - 11/15/2004 16:50:13 - Voice ID - [id number] Document ID - [id number] cc: ANCELMO DIAZ MD, REFERRING PHYSICIAN This document has been electronically signed by KYLIE LARSON MD on 11/16/2004 15:48:37. l3 documented in this encounter Plan of Treatment Upcoming Encounters Date Type Department Care Team (Late st Contact Info) Description 10/01/2024 13:40 EDT Office Visit [facility] Endocrinology - [facility] [address] [facility] [place] [address] Wilder Zaidi, DO [address] [facility] [address] [place] [address] documented as of this encounter Visit Diagnoses Not on filedocumented in this encounter Care Teams Poultry Processing Supervisor Relationship Specialty Start Date End Date Yan Demarco MD [address] [place] [address] PCP - General 08/22/09 02/20/10 Corin Skinner MD [address] [place] [phone] PCP - General 10/24/08 08/21/09 Akil Serrano MD [address] [place] [address] PCP - General 02/21/10 04/16/11 documented as of this encounter
--- OUTSIDE RECORDS SUMMARY | 2024-07-22 13:50 | XMS_ITS | Encounter Summary ---
Author Organization [facility] Address [address] [place] [address] Care Team Providers Care Wood Floor Layer Name Role Phone Unavailable Primary Care Provider Unavailabl e Encounter Details Date Type Department Care Team (Late st Contact Info) Description 09/17/2004 11:07 EST - 09/17/2004 11:59 EST Hospital Encounter [facility] - Maple conversion [address] [place] [address] Jamie Mckenna MD [address] [facility] [address] [place] [phone] Discharge Disposition: Home or Self Care Social [...] Visit [facility] Endocrinology - [facility] [address] [place] [address] Wilder Zaidi DO [address] [facility] [address] [place] [phone] documented as of this encounter Procedures Procedure [...] macroadenoma, although these are much less likely. /[facility] Jamie Mckenna MD IMG MRI ORDERABLES Final Re sult * MR [...] MEDICAID-RLR* Jamie Mckenna MD IMG MRI ORDERABLES Final Re sult documented in this encounter Visit Diagnoses Not on filedocumented in this encounter
--- OUTSIDE RECORDS SUMMARY | 2024-07-22 13:51 | XMS_ITS | Encounter Summary ---
Author Organization [facility] [place] [address] Care Team Providers Care Boardmarker Name Role Phone Ren Vaz MD Primary Care Provider [phone] Reason for Visit * Auth/Cert (Routine) Specialty Diagnoses / Procedures Referred By Duyen bui Referred To Contact Diagnoses Hyponatremia hyponatremia Procedures ER Mariola Crisostomo MD [facility] [place] [address] [facility] Referral ID Status Reason Start Date Expiration Date Visits Re quested Visits Authorized [id number] 1 1 Encounter Details Date Type Department Care Team (Late st Contact Info) Description 2024 2:56 PM [place] [address] Akin Mcneill MD [facility] [place] [address] Anesthesia Record Procedure Summary Procedure Name Responsible [...] tolerated well, appears comfortable; 0; 06/16/24; 220606/15/24 0245 by Carlos Alberto Wilson RN 06/16/242206 by Delgado Ray RN Supraglottic Mask Ventilation: Paxton moser (1); LMA Type: air-Q; LMA Size: 4; Inserted by: Lamin Adams CRNA; Removal Date: 06/15/24; Removal Time: 16106/15/24 1504 by Real Adams CRNA 06/15/24 1610 by Real Adams CRNA documented in this encounter Social History Tobacco Use Types Packs/Day Years Used Date Smoking Tobacco: Never Smokeless Tobacco: Never Alcohol Use Standard Drinks/Week Comments No 0 (1 standard drink = 0.6 oz pur e alcohol) [facility] Utilities Answer Date Recorded In the past 12 months has e [employer], gas, oil, or water [employer] threatened to shut off services in your [...] any time in the past 12 m onths, were you homeless or living in a mcfp (including now)? 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 with local mass effect on the RIGHT temporal lobe) Surgeons: RESOURCE, ANESTHESIA-GEORGIE Responsible Provider: Akin Mcneill MD Anesthesia Type: general ASA Status: 4 All Anesthesia Providers: Anesthesiologist: Akin Mcneill MD GLYCERINE PLANT OPERATOR: Real Adams CRNA Vitals Value Taken Time [...] Mcneill MD * Anesthesia Preprocedure Evaluation - Akni Mcneill MD - 2024 1:45 PM EST [...] Surgical History: Procedure Laterality Date PRO OPEN LOAD OUT WORKER FIX ACETABULAR FX Left 09/04/2017 @OPEN TREATMENT, ACETABULAR FX (WRVU 25.41) performed by Amy Lance MD at [facility] MAIN OR Social History Tobacco Use [...] Adequate IV access Akin Mcneill MD PhD #[id number] Region - Other Informed Consent: Anesthetic plan and risks discussed with patient. Plan discussed with GLYCERINE PLANT OPERATOR. Anesthesia Screening documented in this encounter Plan [...] EST documented in this encounter Care Teams Boardmarker Relationship Specialty Start Date End Date Ren Vaz MD PCP - General Family Medicine 06/02/20 06/17/24 documented as of this encounter
--- OUTSIDE RECORDS SUMMARY | 2024-07-22 13:51 | XMS_ITS | Encounter Summary ---
Author Organization [facility] Address [facility] [place] [address] Care Team Providers Care Forestry Technical Officer Name Role Phone Jimbo More Primary Care Provider + Reason for Visit * Reason Onset Date Comments Appointment 06/16/2024 Encounter Details Date Type Department Care Team (Late st Contact Info) Description 06/16/2024 [place] [address] Lauren Ruby MD [facility] [place] [address] Appointment Social History Tobacco Use Types Packs/Day Years Used Date Smoking Tobacco: Never Smokeless Tobacco: Never Alcohol Use Standard Drinks/Week Comments No 0 (1 standard drink = 0.6 oz pur e alcohol) [facility] Utilities Answer Date Recorded In the past 12 months has e [employer], gas, oil, or water [employer] threatened to shut off services in your [...] any time in the past 12 m [facility], were you homeless or living in a [place] health care facility (including now)? No 2024 IPV Inpatient Questions [...] the discharge paperwork. Lauren Ruby MD [facility] Histology Technician Jared, Please help me schedule a follow [...] on filedocumented in this encounter Care Teams Forestry Technical Officer Relationship Specialty Start Date End Date Jimbo More PA Kerry [address] [place] [address] PCP - General Internal Medicine 06/18/24 documented as of this encounter
--- OUTSIDE RECORDS SUMMARY | 2024-07-22 13:51 | XMS_ITS | Encounter Summary ---
Author Organization Formerly [facility] [place] [address] Care Team Providers Care Solaris Administrator Name Role Phone Jimbo More Primary Care Provider + Reason for Visit * Auth/Cert (Routine) Specialty Diagnoses / Procedures Referred By Duyen bui Referred To Contact Diagnoses Hyponatremia hyponatremia Procedures ER IPI Mariola Alfred MD [facility] [place] [address] [facility] Referral ID Status Reason Start Date Expiration Date Visits Re quested Visits Authorized [id number] 1 1 Encounter Details Date Type Department Care Team (Late st Contact Info) Description 06/14/2024 12:57 AM EST - 06/21/2024 3:06 PM EST Hospital Encounter Neuro Special Care Unit Level 3 [place] [address] Mariola Alfred MD [facility] [place] [address] Christopher [place] [address] [place] [address] [place] [address] [place] [address] Sleep disorder; Hyponatremia; Agitation Discharge Disposition: Alf Facility Social History Tobacco Use Types Packs/Day Years Used Date Smoking Tobacco: Never Smokeless Tobacco: Never Alcohol Use Standard Drinks/Week Comments No 0 (1 standard drink = 0.6 oz pur e alcohol) [facility] Utilities Answer Date Recorded In the [...] any time in the past 12 m [facility], were you homeless or living in a fpc (including now)? No 2024 IPV Inpatient Questions [...] needed. Per discussion with Madeleine from the longterm where he lives 06/17. She notes his [...] has been significant for: Hyponatremia: Presented to [facility] following witnessed tonic-clonic seizure at custodial, found to have sodium of 122. On [...] in September 2023. On second read of [facility] scan described as hypoattenuating, likely cystic [...] Seizures: 2 min tonic-clonic seizure witnessed at longterm, 30 sec seziure at [facility] ED (2mg ativangiven). None since arrival [...] 97 % No results for input(s): PHART, YEH1LPJ, PO2ART, MKI0WDB in the last 168 hours. I/O: Date 06/21/24 07 - 06/22/24 0659 Shift 3036-4259 1747-7371 5735-9204 24 Hour Total INTAKE P.O. 354 354 [...] Procedure Component Value Units Date/Time Blood culture [[id number]] (Abnormal) Collected: 06/18/241899 Lab Status: Preliminary result [...] a previously preliminary verified report. Blood culture [[id number]] Collected: 06/18/241899 Lab Status: Preliminary result Specimen: [...] 07/20/2024 1:30 PM Eron Barriga MD [id number] * Attachments The following attachments cannot be sent through Care Everywhere. * Hyponatremia (Gibraltarian) documented in this encounter Medications at Time of Discharge Medication Sig Dispensed Refills Start Date End Date prazosin (Minipress) 2 mg capsule Take 2 mg by mouth nightly. 03/03/2023 alendronate (Fosamax) 70 mg tablet Take 70 mg by mouth every 7 days. 03/04/2024 baclofen (LIORESAL) 20 mg Tablet Take 20 mg by mouth 3 times daily. 10/09/2021 cetirizine (ZyrTEC) 10 mg Tablet Take 10 mg by mouth daily. 10/09/2021 hydrOXYzine (Atarax) 25 mg Tablet Take 25 mg by mouth as needed. 10/03/2021 montelukast (Singulair) 10 mg Tablet Take 10 mg by mouth every morning. 08/22/2021 Magnesium Gluconate 27 mg magnesium (500 mg) Tablet Take 1 tablet by mouth 2 times daily. 09/28/2021 pyridoxine, Vitamin B6, (Vitamin B6) 50 mg Tablet Take 50 mg by mouth every morning. 10/22/2021 menthol/camphor (BIOFREEZE-ILEX TOP) Apply topically as needed. ferrous gluconate 324 mg (37.5 mg iron) Tablet Take 324 mg by mouth every other day. acetaminophen (TYLENOL) 325 mg Tablet Take 2 tablets by mouth every 6 hours as needed for Pain. 30 tablet 1 03/11/2018 atorvastatin (LIPITOR) 40 mg Tablet Take 1 tablet by mouth every evening. 90 tablet 3 03/11/2018 cholecalciferol, Vitamin D3, 1,000 unit Tablet Take 1 tablet by mouth daily. 90 tablet 3 03/12/2018 desmopressin (DDAVP) 0.1 mg Tablet Take 1 tablet by mouth every morning. 30 tablet 3 03/12/2018 hydrocortisone (CORTEF) 10 mg Tablet Take 1 tablet by mouth Daily at Noon. 30 tablet 3 03/12/2018 methyl salicylate-menthol (BENGAY) 15-10 % Cream Apply 1 Application topically 2 times daily. 30 g 03/11/2018 omeprazole (PRILOSEC) 40 mg Capsule, Delayed Release(E.C.) Take 1 capsule by mouth daily. 30 capsule 3 03/11/2018 polyethylene glycol (MIRALAX) 17 gram Powder in Packet Take 17 g by mouth daily as needed (If not bowel movement in last 24 hours.). 14 each 03/11/2018 zonisamide (ZONEGRAN) 100 mg Capsule Take 2 capsules by mouth nightly. 30 capsule 3 03/11/2018 Diaper,Brief, Adult,Disposable Misc Daily 27/01 as needed for incontinence 90 each 03/11/2018 mupirocin (Bactroban) 2 % Ointment 09/10/2021 aspirin 81 mg Tablet, Chewable Take 81 mg by mouth daily. 30 tablet 3 03/12/2018 calcium carbonate (TUMS) 200 mg calcium (500 mg) Tablet, Chewable Take 1 tablet by mouth nightly. 30 tablet 3 03/11/2018 hydrocortisone (CORTEF) 20 mg Tablet Take 1 tablet by mouth every morning. 30 tablet 3 03/12/2018 levothyroxine (SYNTHROID) 75 mcg Tablet Take 3 tablets by mouth every morning. 90 tablet 3 03/12/2018 melatonin 3 mg Tablet Take 3 tablets by mouth nightly. 90 tablet 3 03/11/2018 QUEtiapine (SEROQUEL) 50 mg Tablet Take 5 tablets by mouth nightly. 30 tablet 3 03/11/2018 senna-docusate (PERICOLACE) 8.6-50 mg Tablet Take 2 tablets by mouth 2 times daily. 60 tablet 11 03/11/2018 traZODone (DESYREL) 50 mg Tablet Take 1 tablet by mouth nightly. 90 tablet 3 03/11/2018 QUEtiapine (SEROQUEL) 50 mg Tablet Take 1 tablet by mouth 2 times daily as needed. 60 tablet 3 03/11/2018 desmopressin (DDAVP) 0.1 mg Tablet Take 1.5 tablets by mouth nightly. 30 tablet 3 03/11/2018 07/20/2024 documented as of this encounter Progress Notes [...] spent >30 minutes (Day of Discharge Code 61095) involved in the final examination of the patient, discussion of the hospital stay, instructions for continuing care to all relevant caregivers, and preparation of discharge records, prescriptions and referral forms. Plans Discharge to longterm Follow-up scheduled with PCP and neurosurge Please [...] appropriate/able. Sunitha Sanderson PT, DPT, NCS Pager: [phone] Physical Therapy Inpatient Rehabilitation Department * Martinez [...] and not moving extremities Labs: Recent Labs 06/20/243 06/19/24 0410 06/18/24 0126 WBC 5.59 6.86 [...] 168 hours. No results for input(s): PHART, NZC7HNH, PO2ART, OIV3TBV in the last 168 hours. Microbiology: None [...] needed. Per discussion with Madeleine from the longterm where he lives 06/17. She notes his [...] Code Status: FULL - Dispo: Back to longterm when Martinez Reynolds MD Hospital medicine Service: [...] 168 hours. No results for input(s): PHART, DGR5TRE, PO2ART, NRC7IIG in the last 168 hours. Microbiology: None [...] needed. Per discussion with Madeleine from the longterm where he lives 06/17. She notes his [...] Code Status: FULL - Dispo: Back to longterm when Martinez B MD Gail [facility] medicine Service: 2900 06/19/2024 * Shola Morris MD - 06/19/2024 10:15 AM EST Images from the original note were not included. Endocrinology Follow up Note Name: Abram Burgos Date: 06/19/24 Room: [address] [place] [address]- Reason for Consult: panhypopituitarism HPI Abram Burgos [...] access to additional DDAVP dosing at his longterm after speaking with Jennifer from the longterm. Possibility of him having access to additional water/fluid intake over the last few weeks. Bettina said that this is possible given there is often hourly caregiver turnover and not everyone is up to date on what is recommended. He is on a 3.5 L restriction per day at the longterm. Patient was continued on home dose of [...] - will need follow up with his Grey Washer, Dr. Zaidi or Dr. Day Littlejohn at discharge Endocrinology will sign off at this time but are available for any questions or concerns during hisremaining hospital stay. Thank you for allowing us to participate in the care of this patient. Discussed with Dr. Morris. Crista Gill MD. PGY4 [facility] Endocrinology I have seen the patient and [...] take POat this time Shola Morris MD [facility] Mechanicadvertising sales assistant Endocrinology Section [facility] * Doris Judd MD - 06/19/2024 6:58 [...] glean yes and no Language: fluent in south korean and with word finding difficulty Mood: awesome [...] seems that this struggle is also a lyft driver of agitation, and one of the aspects that makes it hard for him to be here in the hospital. Meeting his physical comfort needs such as pain physical discomfort such as itching will also be important. 06/18/2024-Abram has been agitated overnight and has been un directable at times. Per collateral from his longterm, this is a baseline that has been going on for many months. On learning of his longterm regimen, not reflected in surescripts, we will [...] - start 600mg BID, titrate to MDD 6324-5321 in divided doses - monitor for increased respiratory secretions -discontinue depakote Patient on IEA Status? IEA: NO, patient is not an on IEA. Awaiting voluntary psychiatric placement but safety concerns exist if patient decides to leave and will require urgent psychiatric assessmentprior to discharge or leaving AMA. Recommendations were communicated to primary steam room attendant Dr. Johnson. H Samson Judd MD 06/19/2024 [...] Minimal/Low [] Low [] Minimal/Low [] Low 54799 [] Moderate [] Moderate [] Moderate [] Moderate 53619 [] High [] High [] High [] High 20567 Final Coding Determination: Moderate * Pamela Johnson [...] 168 hours. No results for input(s): PHART, LIK7EKU, PO2ART, CWV8KXW in the last 168 hours. Microbiology: None [...] needed. Per discussion with Madeleine from the longterm where he lives 06/17. She notes his [...] Code Status: FULL - Dispo: Back to longterm when Pamela Johnson DO [facility] medicine Service: 2900 06/18/2024 * Jaja Chin [...] not medically ready but will return to longterm when [facility] [address] [place], [place] [address] Spoke with Jennifer Woods RN. Updated not anticipated discharge until next week. Will submit referralto [facility] to update facility with clinicals. [facility] provides transport. * Sunitha Sanderson PT - 06/18/2024 10:49 AM EST Physical Therapy Contact Note 06/18/24 8119 Evaluation & Treatment Document Type contact Total Minutes, Physical Therapy 0 Comment, Session Not Performed Checked in with nursing, pt awaiting stat HCT for somnolence. PT will defer and follow up as appropriate/able. Sunitha Sanderson PT, DPT, NCS Pager: [phone] Physical Therapy Inpatient Rehabilitation Department * Zoë Braden, RN - 06/18/2024 9:01 AM EST During [...] mg at 22:55. His medications from his longterm were shared by their staff, with his home medicationregimen being 200 XL seroquel nightly and 100 mg BID with 100 mg PRN daily and hetlioz 20 mg qHS and melatonin nightly. Per Dr. Benítez in conversation with Madeleine from his longterm, Abram goes from 0-100 very quickly and will throw things and become agitated in his home setting, and that this has been going on for many months now. On interview this morning: Abram is lying in bed under the covers having his vitals checked. He denies pain, thoughts of hurting himself,f and denies needing anything at this time. His RAILROAD WHEELS AND AXLE INSPECTOR at bedside shares that he has been [...] glean yes and no Language: fluent in south korean and with word finding difficulty Mood: no [...] seems that this struggle is also a lyft driver of agitation, and one of the aspects that makes it hard for him to be here in the hospital. Meeting his physical comfort needs such as pain physical discomfort such as itching will also be important. 06/18/2024-Abarm has been agitated overnight and has been un directable at times. Per collateral from his longterm, this is a baseline that has been going on for many months. On learning of his longterm regimen, not reflected in surescripts, we will [...] leaving AMA. Recommendations were communicated to primary steam room attendant Dr. Johnson. Jaja Chin MD 06/18/2024 Coding [...] Minimal/Low [] Low [] Minimal/Low [] Low 67471 [] Moderate [] Moderate [] Moderate [] Moderate 74737 [] High [] High [] High [] High 98289 Final Coding Determination: Moderate Associated attestation - [...] it as a standing medication at his longterm). Given his mild increase in LFTs we [...] Brittny Hanna MD Department of Psychiatry Pager #[phone] * Pamela Johnson, - 06/17/2024 5:30 PM [...] 168 hours. No results for input(s): PHART, KTQ3DQV, PO2ART, XGE7SID in the last 168 hours. Microbiology: None [...] 3L daily. Spoke to Madeleine from the [facility] where he lives. She notes [...] Code Status: FULL - Dispo: Back to longterm when MR Pamela Corbin Ana MaríadanielaDO [facility] medicine Service: 2900 06/17/2024 * Roya Kingsley, OT - 06/17/2024 [...] Surgical History: Procedure Laterality Date PRO OPEN GIS ENGINEER FIX ACETABULAR FX Left 09/04/2017 @OPEN TREATMENT, ACETABULAR FX (WRVU 25.41) performed by Amy Lance MD at [facility] MA[facility] OR Social History: Patient lives in a longterm. Home Setup: accessible DME: none Baseline ADL/Mobility: [...] from EOB: min assist x 2 with SOLAR MAINTENANCE TECHNICIAN Pt able to side step to L side ~4-5 steps with min assist x 2 using SOLAR MAINTENANCE TECHNICIAN, cues provided for step initiation and sequencing Stand to sit x 2: min assist x 2 with SOLAR MAINTENANCE TECHNICIAN Sit to supine: mod assist x [...] morning for OT treatment session to progress POCTrena Michelle was pleasant, cooperative and eager to participate in OOB activities. He was able to transition to sitting EOB and complete light grooming tasks with only set-up assist. He also completed sit to stand x 2 and take minimal side steps to L side with SOLAR MAINTENANCE TECHNICIAN. Unsure of pt's most recent functional status but anticipate pt will be able to return to his longterm pending level of assistance they can provide. Pt will benefitfrom ongoing therapeutic interventions to achieve pt's and therapy goals. Anticipated Discharge Disposition (OT): other (see comments) (return to longterm) Equipment Recommendations: Equipment Needs Upon Discharge (OT): [...] Minutes, Occupational Therapy: 28 (09:42-10:10 SCx2) Pager: [phone] Roya Kingsley OTR/L Occupational Therapy Rehabilitation Department * Tomás Priest RN - 06/16/2024 8:58 PM EST Abram Kim Aubrey arrived to 349 @ 2100.Oriented to room, [...] EEG CONTINUOUS MONITORING INPATIENT 2024 PRO OPEN GIS ENGINEER FIX ACETABULAR FX Left 09/04/2017 @OPEN TREATMENT, ACETABULAR FX (WRVU 25.41) performed by Amy Lance MD at [facility] OR Social History: Home setup: Pt resides in an accessible longterm in [facility] Baseline Mobility/Prior level of function: Had assistance [...] basilic vein (medial side of arm), right 06/15/24244 -- 1 Active Orders Diet Regular diet [...] to swing bed rehabilitation vs return to longterm when medically stable, pending functional progress while in the hospital and level of care available at longterm. Pt will benefit from ongoing physical therapy to address the above impairments and facilitate return to PLOF. Discharge Recommendations: Based on the current findings, Anticipated Discharge Disposition (PT): swing bed rehabilitation facility, adult foster care/longterm when medically ready for hospital discharge. Plan: [...] (admitted for seizures; complex PMH; lives in longterm) Examination of body system impairments, functional limitations and behaviors, and/or participation restrictions. Addressing 1-2 elements Addressing 3 + elements Addressing 4 + elements X Clinical presentation: See assessment above. Stable/Uncomplicated Evolving/Fluctuating Symptoms Unstable/Unpredictable X Clinical decision making of moderate complexity based on pt's functional performance as outlined inthis evaluation. Time IN / OUT: 4100-0384 Total Minutes, Physical Therapy: 30 (eval). Ludivina Stover PT DPT 06/16/2024 Pager: [phone] Physical Therapy Inpatient Rehabilitation Department * Christopher [...] seizures in the setting of hyponatremia and AUTO CLUTCH SPECIALIST structural abnormalities. This most likely provoked by new hyponatremia rather than chronic structural brain disease. Our working theory is hyponatremia provoked by issues with fluid restriction at his longterm, and it is so far improving at [...] with endocrine consultation for DDAVP / Namanagement Chirstopher Stanley MD IPI Certification I certify that I am a D-H credentialed attending provider with admitting privileges and that the patient meets or has met medical necessity to require an inpatient IPI level of care meeting a minimumof two midnights or is on the [facility] inpatient only procedure list (status C) due to: monitoring of fluid status given an inability to regulate fluid balance and the need for administration or restriction of fluids and breakthrough seizures * Lauren Ruby MD - 06/16/2024 6:54 AM EST [facility] NEUROSURGERY PROGRESS NOTE ID: Abram Burgos [...] with jazmín of 122 while at [facility] thus far corrected to 131). Therefore no acute neurosurgical intervention warranted. We will follow up with the patient and hisfamily/legal guardian outpatient to discuss management options. We are signing off for now, rest ofcare per primary, but remain available at pager [phone] should further questions/concerns arise. Plan: -No acute neurosurgical intervention warranted -We are signing off now, but will follow up outpatient with patient/family to discuss management options -Rest of care per primary including frequency of neuro checks For questions please call NSGY pager [phone] Lauren Ruby MD 06/16/2024 7:22 AM Clinical [...] with him tomorrow. Maxine Silverio, PT Pager [phone] * Christopher Stanley MD - 2024 8:13 [...] seizures in the setting of hyponatremia and AUTO CLUTCH SPECIALIST structural abnormalities. This most likely provoked by new hyponatremia rather than chronic structural brain disease, but as yet uncertain. Our working theory is hyponatremia provoked by issues with fluid restriction at his longterm, and it is so far improving at [...] O2 Device RA Maxine Silverio, PT Pager [phone] * Wilder Davis - 06/14/2024 11:19 AM [...] adjusted based on our knowledge. Was at longterm when he had ~2 minute tonic clonic seizure. Presented to [facility] where he was found to be hyponatremic. Given hypertonic saline and ativan and transferred to [facility]. Physical Exam Last value Range last 24 [...] seizures in the setting of hyponatremia and AUTO CLUTCH SPECIALIST structural abnormalities. His hyponatremia is likely [...] minimumof two midnights or is on the [facility] inpatient only procedure list (status C) due [...] a 2 minute tonic-clonic seizure at his longterm with subsequent 30 second seizure at [facility] ED which was treated with 2mg ativan. He was found to be hypon atremic to 121 (from apparent baseline in 140s). At [facility] he received 150cc 3% NaCl and 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 He wastransferred to [facility] where sodium of 122 was treated with 50cc 3%NaCl and Neutra-Phos. No evidence of seizure since arrival. Neurology, neurosurgery, and endocrine teams were consulted. Hospital/ICU course has been significant for: #Hyponatremia #Seizure Activity (prior to arrival at [facility]) #possible enlarging lesion in R middle cranial fossa 24-hour events: -Transferred to [facility] -Na treated with 3% (once at OSH, [...] Line): -- No results for input(s): PHART, BFL6UHI, PO2ART, VMR3QOE in the last 168 hours. Intake/Output Summary [...] clear culprit meds on his list.At his longterm he is maintained on a 3.5L fluid [...] Lizeth Calderon APRN June 14, 2024 Pager #[phone] Critical Care Green Team documented in this [...] with seizures. The patient was transferred from [facility] from a longterm ([facility]) for a seizure. He had been in his usual state of health, though notably he did have COVID within the past month. He reported that he had not been missing any of his medications, however due to some recent behavioral troubles and problems with sleeping, some of his medications have been altered recently. Hospital course notable for: Hyponatremia: Presented to [facility] following witnessed tonic-clonic seizure at custodial, found to have sodium of 122. On [...] in September 2023. On second read of [facility] scan described as hypoattenuating, likely cystic [...] Seizures: 2 min tonic-clonic seizure witnessed at longterm, 30 sec seziure at [facility] ED (2mg ativangiven). None since arrival [...] EEG CONTINUOUS MONITORING INPATIENT 2024 PRO OPEN GIS ENGINEER FIX ACETABULAR FX Left 09/04/2017 @OPEN TREATMENT, ACETABULAR FX (WRVU 25.41) performed by Amy Lance MD at [facility] OR Social History: Social History [...] file Social History Narrative Lives at the [facility], moved in 11/07/2014. Social Determinants of Health [...] tablet 3 Unknown Diaper,Brief, Adult,Disposable Misc Daily / as needed [...] %] I/O last 3 completed shifts: In: 1778 [P.O.:1170; I.V.:608] Out: 1874 [Urine:187] Gen: Alert & oriented x3, NAD, well [...] this interval not displayed. Recent Labs 06/16/24 00006/15/24 0006 06/14/24 0527 CALCIUM 8.3* 8.1* 7.9* [...] 06/14/2024 4:02 AM) Result Value WORKSTATION ID [id number] Narrative EXAMINATION: XR CHEST ONE VIEW CLINICAL [...] have questions please contact the health animal care giver that requested your imaging first. Electronically signed by: Beverley Valencia MD, [facility] ([phone]), at 06/14/2024 4:32 AM Request For 2nd Read CT Head (Exam End: 06/14/2024 9:46 AM) Result Value WORKSTATION ID [id number] Narrative EXAMINATION: REQUEST FOR 2ND READ CT HEAD CLINICAL HISTORY: New seizure with known mass, ?enlargening. Presenting with seizure; Sending Institution [facility]; Date of exam [id number]; I believe a reinterpretation of this exam may alter care of Patient. Yes TECHNIQUE: Reinterpretation of noncontrast CT head performed at [facility] 06/13/2024 at 2143 hours COMPARISON: [...] have questions please contact the health animal care giver that requested your imaging first. Brain wwo Contrast (Generic) (Exam End: 2024 4:20 PM) Result Value WORKSTATION ID [id number] Narrative EXAMINATION: MRI BRAIN WWO CONTRAST (GENERIC) [...] clip with its blades near the right TELE MARKETING EXECUTIVE. Impression Homogeneously enhancing 3.5 cm mass along [...] have questions please contact the health animal care giver that requested your imaging first. Electronically signed by: Raudel Heredia MD, [facility] ([phone]), at 2024 4:46 PM ASSESSMENT and PLAN: [...] Tim Yuen MD Internal Medicine PGY-2 Pager: [phone] 06/16/24 Associated attestation - Channing Ballesteros MD [...] with seizures. HPI: Per report presented to [facility] from a longterm ([facility]) for seizure. He has been in his usual state of health although did have covid within the past month. He has been taking his medications as prescribed although due to behavioral troubles and problems sleeping some of his medications have been altered recently. This afternoon at his longterm he had a two minute whitnesses tonic [...] encephalomalacia Interventions that the [facility] [facility] included 150cc 3% NaCl, 100mg of hydrocortisone and a dose (unknown amount) of desmopressin. [facility] was contacted for transfer. Neuro critical care [...] Surgical History: Procedure Laterality Date PRO OPEN GIS ENGINEER FIX ACETABULAR FX Left 09/04/2017 @OPEN TREATMENT, ACETABULAR FX (WRVU 25.41) performed by Amy Lance MD at [facility] MAIN OR No family history on file. Social History: Lives in a longterm. Ventilator Settings: Room air. Physical Exam: General: [...] wbc, hgb, hct plt Recent Labs 06/14/24 010 WBC 10.38* HGB 12.2* HCT 35.5* PLATELET 276 Last 3 Lytes Recent Labs 06/14/24 010 NA 123* K 3.7 CL 91* CO2 19* BUN 14 CREATININE 0.80 Last Ca, Mg, Phos Recent Labs 06/14/24 010 CALCIUM 8.1* PHOS 1.5* MAGNESIUM 0.90 EKG: [...] 127 from the time of arrival to [facility] Should attempt 6mMol/L increase in Na [...] Placement date Placement time Site Days PIV 06/14/24109 18 gauge median cubital vein (antecubital fossa), right 06/14/24109 -- less than 1 Consults: Endocrinology and [...] NAKIA Blair June 14, 2024 Critical Care [place] Team (pager [phone]) Dr. Alfred is the attending of record for this admission documented in this encounter Procedure Notes * Joey Moura MD - 06/18/2024 1:58 PM EST [facility] Department of Neurology Inpatient Routine EEG Report Name of the Patient: Abram Burgos Date of : 1990 Date of Service: 06/18/2024 Referring physician: Rachel Johnson DO Reading Resident/Fellow: MD Gladys Joel Attending: Rosa Quezada MD Routine EEG start time: 13:27:47 Routine EEG end time: 14:29:53 Total time recorded: 1:00:02 Indication for EEG: Encephalopathy/Altered mental status BRIEF HISTORY: Abram Burgos is a 34 y.o. 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 MEDICATIONS: Ativan 2 mg (23:46 on 06/16) Zonisamide 400 mg nightly PRIOR EEG(s): cEEG tail report on 2024: INTERPRETATION: This 10 hours continuous EEG monitoring tail study is abnormal due to: Moderate generalized slowing of background 2. Right hemispheric slowing CLINICAL CORRELATION: The study is consistent with moderate encephalopathy of non specific to etiology. There is underlying right hemispheric structural or functional abnormality. No seizures or concerning patterns seen during this epoch. METHODS: A 21 channel digitized electroencephalogram was performed in the [facility] Clinical Neurophysiology Laboratory. The 10/20 international system of electrode placement was used and bipolar and referential electrode montages were recorded. In addition to EEG the patient was monitored for EKGand lateral/vertical eye movements. Video was recorded during the session. ACCOUNTS MANAGER'S REPORT: Performed by: Ingrid Shi Patient was not sleep deprived. Sleep was attained. Photic stimulation was performed. Hyperventilation was not performed. Effort not applicable. Movement and other artifact was not significant. Comments: ELECTROENCEPHALOGRAPHER'S REPORT Background: The background was continuous, with spontaneous variability and reactivity. There was normal voltage activity. Background predominantly formed of delta/theta frequency with occasional superimposed faster frequencies. Anterior to posterior gradient and posterior dominant rhythm were not discriminable. Focal Asymmetries: Near-continuous R hemispheric slowing compared to the R. Sleep: Sleep was characterized by decreased myogenic artifact and increased slowing. POSTS marked the presence of drowsy/stage N1 sleep state. There were symmetric N2 sleep transients present including sleep spindles. REM was not recorded. Interictal Activity: There were no epileptiform discharges, rhythmic or periodic patterns. Patient Events or Seizures: No patient events or electrographic seizures were recorded. Provocative Maneuvers: Photic stimulation was performed however no driving response was observed. EKG: Occasional sinus bradycardia to 47 BPM was noted. Technical Limitations: None INTERPRETATION: This 1-hour inpatient routine EEG was abnormal due to: Interictal: 1) Near continuous R hemispheric slowing. 2) Mild to moderate diffuse slowing. Ictal: No discrete seizures. CLINICAL CORRELATION: The overall pattern of this EEG demonstrateds focal cerebral dysfunction involving the R hemisphere. Additionally, it demonstrates mild-moderate global cerebral dysfunction of non-specific etiology. No discrete seizures or epileptiform discharges. Compared to prior recording, this is similar. Joey Moura MD PGY-5 epilepsy fellow 06/19/2024 Associated attestation - Rosa Quezada MD - 07/01/2024 12:34 PM EST Epilepsy Attending I was the attending physician supervising the fellow in the care as noted. The videoEEG was reviewed in detail by me together with the fellow. I agree with the report. Rosa Quezada MD [facility] Neurology * Camron Gee MD - 2024 5:19 PM ESTProcedure(s): EEG CONTINUOUS MONITORING INPATIENT [facility] Department of Neurology Inpatient Continuous Video EEG Tail Report Name of the Patient: Abram Burgos Date of : 1990 Patient Location: [facility] Date of Service: 2024 Referring physician: Marline Calderon Fellow: Rashard Navarrete [...] EKG. Video was recorded during the session. ACCOUNTS MANAGER'S REPORT: Performed by: At the onset of [...] seen during this epoch. Rashard Navarrete MD FAMILY LAW ATTORNEY Fellow, PGY-5 2024 EPILEPSY ATTENDING ADDENDUM - I reviewed the EEG with the FAMILY LAW ATTORNEY/Epilepsy fellow, and I agree with the interpretation as documented. Carmon Gee MD, PhD Professor of Neurology [facility] Clinical Neurophysiology Laboratory [facility] Rashard Castrejon MD - 06/14/2024 3:33 PM [...] Castrejon MD - 06/14/2024 3:03 PM EST [facility] Department of Neurology Inpatient Continuous Video EEG Report Name of the Patient: Abram Burgos Date of : 1990 Patient Location: [facility] Date of Service: 06/14/2024 Referring physician: [...] EKG. Video was recorded during the session. ACCOUNTS MANAGER'S REPORT: Performed by: At the onset of [...] seen during this epoch. Rashard Navarrete MD FAMILY LAW ATTORNEY Fellow, PGY-5 06/14/2024 Associated attestation - Camron Gee MD - 2024 1:03 PM EST EPILEPSY ATTENDING ADDENDUM - I reviewed the EEG with the FAMILY LAW ATTORNEY/Epilepsy fellow, and I agree with the interpretation as documented. Given the lack of evidence for underlying epileptic seizures from this recording of ~24 hours, we'd recommend considering discontinuing the CEEG study. We are available to discuss this matter with the Neurology consultation and inpatient bravo team. Camron Gee MD, PhD Professor of Neurology [facility] Clinical Neurophysiology Laboratory [facility] documented in this encounter Miscellaneous Notes * Plan of Care - Bell Amezcua RN - 06/21/2024 3:04 PM EST Abram Burgos discharged to alf by care facility's vehicle with staff from longterm. All belongings sent with patient. ALLISON removed, [...] Patient is medically ready for discharge to [address] [place] [address] '[id number] . Electrical Controls Designer: Kemi Noriega at [facility] will be picking him up. I also spoke with Bettina Burgoshis Guardian to give her updates. Needs for Transition of Care: Plan for discharge is: Alf Facility / Swing Outpatient Agency/Support Group Needs: custodial Agency Referrals & Follow-up Care: Transportation: Electrical Controls Designer: Kemi Hari at [facility] will be picking him up. I also spoke with Bettina Burgos his Guardian to give her updates Wheelchair van/Ambulance? No Functional status prior to admission: Assistive Equipment and Assistive Person Home Environment: Others in the home: other (see comments) (Lives in a longterm.). Current LivingArrangements: longterm. Accessibility Concerns:Easy access to his surroundings. Fully [...] plan was formulated with input from patient, Electrical Controls Designer: Kemi Noriega at [facility] will be picking him up. I also spoke with Bettina Burgos his Guardian to give her updates and team Dr. Reynolds. All are in agreement with plan. Sudarshan Marie MERCHANDISING EXECUTION MANAGER CCM * Plan of Care - Erik [...] better mood today, less agitation. Visitor from longterm. Downgraded to med surg. PLAN MOVING FORWARD: [...] 06/14/2024 Attending: Pamela Johnson DO ID: Abram Burgos is a 34 y.o. [...] been altered recently. This afternoon at his longterm he had a two minutewitnessed tonic clonic [...] and incoherent, barely speaking over this past . She states he was getting a new sleep medication starting in February, which appears to be Rozerem 8 mg nightly. He was also switched from Seroquel nightly to twice daily dosing at his longterm, which she had not been on before. 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 Sister reports that he has had low sodium in the past, she believes in the 120s or lower, but has not triggered seizures in the past. Patient has previously been seen at [facility] in 2014. His deficits at that time included left hemiparesis, cortical blindness, urine incontinence, dysarthria and gait disorder. 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 According to [facility] documentation, he had a spell at his longterm that was concerning for seizure one month prior to his visit. BG at the time was in the 40s and he was started on Keppra in addition to Zonegran. [facility] neurologist planned for discontinuation of Keppra [...] PRN Samantha Babb MD 975 mg at 06/17/242331 polyethylene glycoL (Miralax) packet 17 g 17 [...] Daily Tim Yuen MD 0.1 mg at 06/16/24 0924 desmopressin (Ddavp) tablet 0.15 mg 0.15 mg [...] 60 tablet 3 Diaper,Brief, Adult,Disposable Misc Daily / as needed for incontinence 90 each 3 Past Medical History: No past medical history on file. Past Surgical History: Procedure Laterality Date EEG CONTINUOUS MONITORING INPATIENT 2024 PRG UNLISTED MRI PROCEDURE N/A 2024 MRI WITH ANESTHESIA (WRVU *) performed by SHRADDHA PUTNAM at [facility] [place] PRO OPEN GIS ENGINEER FIX ACETABULAR FX Left 09/04/2017 @OPEN TREATMENT, ACETABULAR FX (WRVU 25.41) performed by Amy Lance MD at [facility] MA[facility] OR Allergies: Allergies Allergen Reactions [...] [100 %] I/O: 06/17 0701 - 06/18 07 In: 2906 [P.O.:2836; I.V.:70] Out: 175 [Urine:175] Extremities: Excoriations and scabs throughout extremities and torso, mitts in place Neuro: Somnolent, able to slightly open eyes to noxious stimulation, arouses further with pupillary assessment, using right hand to rub left eye Disconjugate gaze No facial asymmetry 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 Thank you for letting us participate in the care of this patient. If you are a health care provider and have any questions regarding this report, please contact the number below. For patients who have questions please contact the health animal care giver that requested your imaging first. Electronically signed by: Beverley Valencia MD, [facility] ([phone]), at 06/14/2024 4:32 AM Request For 2nd Read CT Head (Exam End: 06/14/2024 9:46 AM) Result Value WORKSTATION ID [id number] Impression Hypoattenuating, likely cystic mass appears to [...] have questions please contact the health animal care giver that requested your imaging first. Brain wwo Contrast (Generic) (Exam End: 2024 4:20 PM) Result Value WORKSTATION ID [id number] Impression Homogeneously enhancing 3.5 cm mass along [...] have questions please contact the health animal care giver that requested your imaging first. Electronically signed by: Raudel Heredia MD, [facility] ([phone]), at 2024 4:46 PM Assessment: Abram Burgos [...] Qtc within normal limits. Staff member from longterm came to visit. Scheduled medications adjusted. PLAN [...] 06/14/2024 Attending: Pamela Johnson DO ID: Abram Burgos is a 34 y.o. 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 Current LivingArrangements: longterm. Accessibility Concerns: Easy access to his surroundings. [...] Recommendation: swing bed rehabilitation facility, adult foster care/longterm with to be determined Last Occupational Therapy Recommendation: adult foster care/longterm (pending on progress) with to be determined Plan for discharge is: Alf Facility / Swing Transition Plan for After Rehab: [facility] Outpatient Agency/Support Group Needs: custodial Agency Choices: [facility] Agency Referrals: Current referrals placed to: N/A Transportation: Barriers to discharge: Global: Discharge planning Global Comment: Coordination of returning to longterm Items to Consider for Discharge: Pt's sister and guardian Bettina Burgos has given permission for the following people from his [facility] to receive updates: Lives in [facility]) -Kemi Noriega -custodial employment case manager -Ladonna Tate -Jennifer Woods -custodial RN CM Interventions today: CM is notified [...] hx patient anticipated to go return to [facility] ([facility]) with possible VNA services on top what is already offered. The patient's sister and guardian Bettina Sweettomy as assisting with dispo coordination. CM will continue to monitor progress, follow for continuity of care, and assist with discharge planning while patient is inpatient status on current unit. Investigate address and contact information for [facility] ([facility]) and place referral so they have updated information to review to assist in dispo Review team recommendations and place referrals for VNA if medical status changes after treatments/interventions. Monitor and update referrals Anticipated Date of Discharge: 06/18/2024 Raudel Tate RN Case Electrical Products Sales Engineer of Care Management * Consult Note - Kellen Braxton MD - 06/17/2024 5:45 AM EST Images from the original note were not included. Neurology Inpatient Consult Note - 06/17/2024 Admit date: 06/14/2024 Attending: Channing Ballesteros MD ID: Abram Kim Aubrey is a [...] been altered recently. This afternoon at his longterm he had a two minutewitnessed tonic clonic [...] nightly to twice daily dosing at his longterm, which she had not been on before. 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 Sister reports that he has had low sodium in the past, she believes in the 120s or lower, but has not triggered seizures in the past. Patient has previously been seen at [facility] in 2014. His deficits at that time included left hemiparesis, cortical blindness, urine incontinence, dysarthria and gait disorder. 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 According to [facility] documentation, he had a spell at his longterm that was concerning for seizure one month prior to his visit. BG at the time was in the 40s and he was started on Keppra in addition to Zonegran. [facility] neurologist planned for discontinuation of Keppra [...] PRN Samantha Babb MD 975 mg at 06/17/24447 senna-docusate (Pericolace) 8.6-50 mg per tablet 2 [...] Daily Tim Yuen MD 10 mg at 06/16/2423 LORazepam (Ativan) (2 mg/mL) injection 2 mg [...] EEG CONTINUOUS MONITORING INPATIENT 2024 PRO OPEN GIS ENGINEER FIX ACETABULAR FX Left 09/04/2017 @OPEN TREATMENT, ACETABULAR FX (WRVU 25.41) performed by Amy Lance MD at [facility] MAIN OR Allergies: Allergies Allergen Reactions [...] 06/14/2024 4:02 AM) Result Value WORKSTATION ID [id number] Impression Low lung volumes with crowding of bronchovascular markings without radiographically evident acute cardiopulmonary process. Thank you for letting us participate in the care of this patient. If you are a health care provider and have any questions regarding this report, please contact the number below. For patients who have questions please contact the health animal care giver that requested your imaging first. Electronically signed by: Beverley Valencia MD, [facility] ([phone]), at 06/14/2024 4:32 AM Request For 2nd Read CT Head (Exam End: 06/14/2024 9:46 AM) Result Value WORKSTATION ID [id number] Impression Hypoattenuating, likely cystic mass appears to [...] have questions please contact the health animal care giver that requested your imaging first. Brain wwo Contrast (Generic) (Exam End: 2024 4:20 PM) Result Value WORKSTATION ID [id number] Impression Homogeneously enhancing 3.5 cm mass along [...] have questions please contact the health animal care giver that requested your imaging first. Electronically signed by: Raudel Heredia MD, [facility] ([phone]), at 2024 4:46 PM Assessment: Abram Burgos [...] Holland MD Neurology, PGY-3 Consult Neurology Service #[id number] 06/17/2024 ATTENDING NOTE: I reviewed the pertinent [...] EEG discontinued - MRI performed Overnight: - NEIL Today: - pt intermittently yelling though following commands on exam this morning - Conversation with patient's guardian Bettina reveals that pt's current behavior likely reflects his typical behavior while hospitalized; she states that he tends to do much better at his longterm than the hospital environment as he is [...] EEG CONTINUOUS MONITORING INPATIENT 2024 PRO OPEN GIS ENGINEER FIX ACETABULAR FX Left 09/04/2017 @OPEN TREATMENT, ACETABULAR FX (WRVU 25.41) performed by Amy Lance MD at [facility] OR Allergies: Allergies Allergen Reactions [...] focal atrophy Arm flexion 5/5 b/l 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 Americo Flores, MS4 [facility] * Consult Note - Kellen Braxton [...] been altered recently. This afternoon at his longterm he had a two minutewitnessed tonic clonic [...] nightly to twice daily dosing at his longterm, which she had not been on before. 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 Sister reports that he has had low sodium in the past, she believes in the 120s or lower, but has not triggered seizures in the past. Patient has previously been seen at [facility] in 2014. His deficits at that time included left hemiparesis, cortical blindness, urine incontinence, dysarthria and gait disorder. 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 According to [facility] documentation, he had a spell at his longterm that was concerning for seizure one month prior to his visit. BG at the time was in the 40s and he was started on Keppra in addition to Zonegran. [facility] neurologist planned for discontinuation of Keppra [...] QPM Minerva Small PA 40 mg at 06/15/24 1859 hydrocortisone (Cortef) tablet 10 mg 10 mg Oral Daily before dinner Minerva Small PA 10 mg at 06/15/24 185 hydrocortisone (Cortef) tablet 20 mg 20 mg [...] tablet 0.15 mg 0.15 mg Oral Nightly GeovannyMinerva PA 0.15 mg at 06/15/242025 heparin (porcine) [...] EEG CONTINUOUS MONITORING INPATIENT 2024 PRO OPEN GIS ENGINEER FIX ACETABULAR FX Left 09/04/2017 @OPEN TREATMENT, ACETABULAR FX (WRVU 25.41) performed by Amy Lance MD at [facility] OR Allergies: Allergies Allergen Reactions [...] 06/14/2024 4:02 AM) Result Value WORKSTATION ID [id number] Impression Low lung volumes with crowding of bronchovascular markings without radiographically evident acute cardiopulmonary process. Thank you for letting us participate in the care of this patient. If you are a health care provider and have any questions regarding this report, please contact the number below. For patients who have questions please contact the health animal care giver that requested your imaging first. Electronically signed by: Beverley Valencia MD, [facility] ([phone]), at 06/14/2024 4:32 AM Request For 2nd Read CT Head (Exam End: 06/14/2024 9:46 AM) Result Value WORKSTATION ID [id number] Impression Hypoattenuating, likely cystic mass appears to [...] have questions please contact the health animal care giver that requested your imaging first. Brain wwo Contrast (Generic) (Exam End: 2024 4:20 PM) Result Value WORKSTATION ID [id number] Impression Homogeneously enhancing 3.5 cm mass along [...] have questions please contact the health animal care giver that requested your imaging first. Electronically signed by: Raudel Heredia MD, [facility] ([phone]), at 2024 4:46 PM Assessment: Abram uBrgos is a 34 y.o. [...] altered mental status prior to presentation is home office representative of ongoing seizures at home. This [...] once nightly to twice daily by his longterm. He may need titration of medicationsto promote [...] record, and Guardian (Spoke with Bettina-Chloe) This FIRE TECHNICIAN Introduced self/reviewed role; services accepted. Admitted From: Transfer from another hospital Location: [facility] Reason for Hospitalization: Per sister, patient had seizure activity for the first time in 9 years.EMS called. Past medical History: No past medical history on file. Hospitalizations Within the Past 30 Days: no previous admission in last 30 days Current Decision-Making Capacity: Guardian Name(s): Bettina Burgos Contact Information: [phone] (cell) Proxy Activated: Yes Paperwork on file?: [...] home: other (see comments) (Lives in a longterm.). Current LivingArrangements: longterm. Accessibility Concerns:Easy access to his surroundings. Fully supported.. In the last 12 months, was there a time when you were not able to pay the mortgage or rent on time?: No In the past 12 months, how many times have you moved where you were living?: 0 At any time in the past 12 months, were you homeless or living in a fpc (including now)?: No In the past 12 months has the electric, gas, oil, or water company threatened [...] at times) Home Address confirmed as: [address] [facility] [address] Attn: Lia Courtney [facility] [address] Social & Family Supports: All names listed below confirmed with patient as current and correct Extended Emergency Contact Information Primary Emergency Contact: Bettina Burgos Address: [address] [place] [id number] [place] [address] Relation: Guardianship Secondary Emergency Contact: [facility] Relation: Other Current Care Provided by: [facility] Provides Primary Care For: no one, unable/limited ability to care for self Caregiver if needed: other (see comments) (custodial) Quality of Family relationships: supportive, involved Community Resources being provided currently: longterm Behavioral Health History: Per chart review, Pt [...] N/A ; Prescription Coverage: Yes Preferred Pharmacy: [place] [facility] - [facility] 1000 [facility] 1000 [facility] [address] [facility] [address] [address] [facility] [place] [address] [address] Status: Patient is a : No Primary Care Provider confirmed: Ren Vaz MD [phone] Patient/Caregiver Goals of Treatment: Anticipating return to longterm when medically ready Potential Needs for Transition of Care: none Agency Referrals: [facility] Transportation: no concerns Transportation Anticipated: agency Concerns to be Addressed: other (see comments) (Needing transportation via [facility] at discharge) Assessment: Patient is admitted to service for Hyponatremia Pt is a 34 year dependent male, living in a longterm. Pt guardian is his sister, Bettina. Bettina is very involved and supportive. Guardianship paperwork is on file. Pt is cared for by his group homestaff while his finances remain in the care of his guardian. [facility]. The longterm will reach out with any information regarding this. Plan going forward: Pending hospital course Care Management team will continue to follow and assist with discharge planing and coordination of care as indicated. JAMSHID Ramirez [facility] Pager [phone] * Consult Note - Kellen Braxton MD [...] been altered recently. This afternoon at his longterm he had a two minutewitnessed tonic clonic [...] nightly to twice daily dosing at his longterm, which she had not been on before. 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 Sister reports that he has had low sodium in the past, she believes in the 120s or lower, but has not triggered seizures in the past. Patient has previously been seen at [facility] in 2014. His deficits at that time included left hemiparesis, cortical blindness, urine incontinence, dysarthria and gait disorder. 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 According to [facility] documentation, he had a spell at his longterm that was concerning for seizure one month prior to his visit. BG at the time was in the 40s and he was started on Keppra in addition to Zonegran. [facility] neurologist planned for discontinuation of Keppra [...] QPM Minerva Small PA 40 mg at 06/14/24 183 hydrocortisone (Cortef) tablet 10 mg 10 mg Oral Daily before dinner Minerva Small PA 10 mg at 06/14/24 183 hydrocortisone (Cortef) tablet 20 mg 20 mg [...] PRN Minerva Small PA 100 mg at 06/15/24540 baclofen (Lioresal) tablet 20 mg 20 mg [...] Surgical History: Procedure Laterality Date PRO OPEN GIS ENGINEER FIX ACETABULAR FX Left 09/04/2017 @OPEN TREATMENT, ACETABULAR FX (WRVU 25.41) performed by Amy Lance MD at [facility] MAIN OR Allergies: Allergies Allergen Reactions [...] 06/14/2024 4:02 AM) Result Value WORKSTATION ID [id number] Impression Low lung volumes with crowding of bronchovascular markings without radiographically evident acute cardiopulmonary process. Thank you for letting us participate in the care of this patient. If you are a health care provider and have any questions regarding this report, please contact the number below. For patients who have questions please contact the health animal care giver that requested your imaging first. Electronically signed by: Beverley Valencia MD, [facility] ([phone]), at 06/14/2024 4:32 AM Request For 2nd Read CT Head (Exam End: 06/14/2024 9:46 AM) Result Value WORKSTATION ID [id number] Impression Hypoattenuating, likely cystic mass appears to [...] have questions please contact the health animal care giver that requested your imaging first. 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 Neurosurgery is consulted for a 3 cm hypodensity in the anterior right middle fossa. He lives at a longterm. This past weekend, he was in his normal state of health when he had a witnessed 2 minute seizure, reportedly with generalized stiffening. He was brought to [facility], where he was found to have Na of 121. He had a tongue laceration. In the ED there he had an additional witnessed seizure. He was transferred to the [facility] MICU for a higher level of care [...] underwent tumor resection with Dr. Álvarez at [facility]. This was complicated by arterial bleeding [...] Surgical History: Procedure Laterality Date PRO OPEN GIS ENGINEER FIX ACETABULAR FX Left 09/04/2017 @OPEN TREATMENT, ACETABULAR FX (WRVU 25.41) performed by Amy Lance MD at [facility] MAIN OR MEDICATIONS: No current facility-administered [...] file Social History Narrative Lives at the [facility], moved in 11/07/2014. Social Determinants of Health [...] neurosurgery attending. No future appointments. Neurosurgery Pager: [phone] Gonzalez Kirkpatrick MD Neurosurgery PGY-1 06/14/2024 6:44 PM Clinical Documentation Improvement: Active Hospital Problems Diagnosis Hyponatremia Resolved Hospital Problems No resolved problems to display. * Initial Assessments - Dinorah Navas, OT - 06/14/2024 11:19 AM EST Occupational [...] Surgical History: Procedure Laterality Date PRO OPEN GIS ENGINEER FIX ACETABULAR FX Left 09/04/2017 @OPEN TREATMENT, ACETABULAR FX (WRVU 25.41) performed by Amy Lance MD at [facility] MAIN OR Social History: Patient lives in a longterm. Home Setup: accessible DME: none Baseline ADL/Mobility: [...] Sit to stand: CGA x2 handhold Ambulation: [facility] x2 handhold for [id number] transfer EOB<>commode Stand to sit: CGA Sit [...] be determined Anticipated Discharge Dispostion: adult foster care/longterm (pending on progress) Other Recommendations: Open shades [...] Discharge planning. Total Minutes, Occupational Therapy: 16 ([id number] (evaluation)) 2017 OT Evaluation Code Rationale: Diagnosis [...] and measurable assessment of functional outcome. Pager: [phone] Dinorah Navas OTR/L 06/14/2024 Occupational Therapy Rehabilitation [...] follows with Dr. Zaidi of Endocrinology at [facility]. Recently saw a covering provider, Day Littlejohn in March 2024. He currently resides in a longterm, [facility] where nurses and medical assistants provide [...] Surgical History: Procedure Laterality Date PRO OPEN GIS ENGINEER FIX ACETABULAR FX Left 09/04/2017 @OPEN TREATMENT, ACETABULAR FX (WRVU 25.41) performed by Amy Lance MD at [facility] MAIN OR No family history on [...] file Social History Narrative Lives at the [facility], moved in 11/07/2014. Social Determinants of Health [...] access to additional DDAVP dosing at his longterm. Pos sibility of him having access to additional water/fluid intake over the last few weeks. Patients sister and legal guardian said that this is possible given there is often hourly caregiver turnover and not everyone is up to [...] Dr. Morris. Crista Gill MD. PGY4 [facility] Endocrinology Pager #[phone] I have seen the patient and reviewed [...] is effective and safe Shola Morris MD [facility] Mechanicadvertising sales assistant Endocrinology Section [facility] * Consult Note - Kellen Braxton MD [...] been altered recently. This afternoon at his longterm he had a two minutewitnessed tonic clonic [...] nightly to twice daily dosing at his longterm, which she had not been on before. 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 Sister reports that he has had low sodium in the past, she believes in the 120s or lower, but has not triggered seizures in the past. Patient has previously been seen at [facility] in 2014. His deficits at that time included left hemiparesis, cortical blindness, urine incontinence, dysarthria and gait disorder. 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 According to [facility] documentation, he had a spell at his longterm that was concerning for seizure one month prior to his visit. BG at the time was in the 40s and he was started on Keppra in addition to Zonegran. [facility] neurologist planned for discontinuation of Keppra [...] Surgical History: Procedure Laterality Date PRO OPEN GIS ENGINEER FIX ACETABULAR FX Left 09/04/2017 @OPEN TREATMENT, ACETABULAR FX (WRVU 25.41) performed by Amy Lance MD at [facility] MAIN OR Allergies: Allergies Allergen Reactions [...] Flexor digitorum profundus Digit II-V flexion / hide sorter 5 5 L2-3 Iliopsoas Hip flexion 5 [...] 7068hours. Last Ca, Mg, Phos Recent Labs 06/14/2452606/14/24 010 CALCIUM 7.9* 8.1* PHOS -- 1.5* MAGNESIUM 0.83 0.90 Last 3 Coags No results for input(s): PT, INR, PTT in the last 168 hours. Diagnostic Tests and Imaging: Results for orders placed or performed during the hospital encounter of 06/14/24 XR Chest One View (Exam End: 06/14/2024 4:02 AM) Result Value WORKSTATION ID [id number] Impression Low lung volumes with crowding of bronchovascular markings without radiographically evident acute cardiopulmonary process. Thank you for letting us participate in the care of this patient. If you are a health care provider and have any questions regarding this report, please contact the number below. For patients who have questions please contact the health animal care giver that requested your imaging first. Electronically signed by: Beverley Valencia MD, [facility] ([phone]), at 06/14/2024 4:32 AM Assessment: Abram Burgos [...] Holland MD Neurology, PGY-3 Consult Neurology Service #[id number] 06/14/2024 ATTENDING NOTE: I reviewed the pertinent [...] 2024 4:20 PM EST Unlisted Mri Procedure ([id number]) 2024 2:56 PM EST Please evaluate lesion [...] 06/14/2024 9:46 AM EST URINALYSIS BEAKER MICROSCOPIC ([facility]) SHEEBA 06/14/2024 8:06 AM EST _URINALYSIS [...] - 5.2 g/dL 06/21/2024 1:30 AM EST [facility] Aspartate Aminotransferase 47(H) <=39 unit/L 06/21/2024 1:30 AM [facility] Alanine Aminotransferase 64(H) 0 - 55 unit/L 06/21/2024 1:30 AM [facility] Alkaline Phosphatase 141(H) 40 - 130 unit/L 06/21/2024 1:30 AM EST [facility] Bilirubin, Total <0.2 <=1.3 mg/dL 06/21/2024 1:30 AM [facility] Bilirubin, Direct <0.2 0.0 - 0.3 mg/dL 06/21/2024 1:30 AM [facility] Protein, Total 7.1 6.1 - 8.0 g/dL 06/21/2024 1:30 AM [facility] Blood VENOUS BLOOD SPECIMEN / Unknown Venipuncture / Unknown 06/21/2024 12:50 AM EST 06/21/2024 12:56 AM EST Martinez Reynolds MD CHEMISTRY ORDERABLES [facility] [place] [address] * (ABNORMAL) CBC (with Diff) (06/21/2024 12:50 AM EST) White Blood Cell 7.52 4.00 - 9.50 x10(3)/mc L 06/21/2024 1:09 AM [facility] Red Blood Cell 5.33 4.58 - 5.54 x10(6)/mc L 06/21/2024 1:09 AM [facility] Hemoglobin 12.9(L) 13.7 - 16.5 g/dL 06/21/2024 1:09 AM [facility] Hematocrit 39.9(L) 40.5 - 48.5 % 06/21/2024 1:09 AM [facility] Mean Cell Volume 74.9(L) 82.9 - 93.1 fL 06/21/2024 1:09 AM [facility] Mean Cell Hemoglobin 24.2(L) 27.5 - 32.1 pg 06/21/2024 1:09 AM [facility] Mean Cell Hemoglobin Concentration 32.3 32.0 - 35.7 g/dL 06/21/2024 1:09 AM [facility] Platelet 268 145 - 357 x10(3)/mc L 06/21/2024 1:09 AM [facility] Mean Platelet Volume 9.1 7.6 - 12.9 fL 06/21/2024 1:09 AM [facility] RDW Standard Deviation 39.8 36.0 - 45.0 fL 06/21/2024 1:09 AM [facility] RDW coefficient of variation 15.0(H) 11.4 - 13.8 % 06/21/2024 1:09 AM [facility] NRBC% auto 0.0 % 06/21/2024 1:09 AM [facility] NRBC Absolute <0.01 <0.01 x10(3)/mc L 06/21/2024 1:09 AM [facility] Neutrophil % 63.6 % 06/21/2024 1:09 AM [facility] Neutrophil Absolute (ANC) - Automated 4.78 1.70 - 6.10 x10(3)/mc L 06/21/2024 1:09 AM [facility] Lymph % 23.7 % 06/21/2024 1:09 AM [facility] Lymph Absolute 1.78 0.90 - 3.20 x10(3)/mc L 06/21/2024 1:09 AM [facility] Monocyte % 9.8 % 06/21/2024 1:09 AM [facility] Monocyte Absolute 0.74 0.30 - 0.90 x10(3)/mc L 06/21/2024 1:09 AM [facility] Eos % 2.0 % 06/21/2024 1:09 AM [facility] Eos Absolute 0.15 0.00 - 0.40 x10(3)/mc L 06/21/2024 1:09 AM [facility] Basophil % 0.4 % 06/21/2024 1:09 AM [facility] Baso Absolute <0.04 0.00 - 0.10 x10(3)/mc L 06/21/2024 1:09 AM [facility] Immature Gran % 0.5 % 1:09 AM [facility] Immature Gran Absolute 0.04 0.00 - 0.04 x10(3)/mc L 06/21/2024 1:09 AM [facility] Blood VENOUS BLOOD SPECIMEN / Unknown Venipuncture / Unknown 06/21/2024 12:50 AM EST 06/21/2024 12:56 AM EST Martinez Reynolds MD HEMATOLOGY ORDERABLE S [facility] [place] [address] * Phosphorus (06/21/2024 12:50 AM EST) Pathologist [facility] Phosphorus 3.2 2.5 - 4.5 mg/dL 06/21/2024 1:30 AM EST [facility] Blood VENOUS BLOOD SPECIMEN / Unknown Venipuncture / Unknown 06/21/2024 12:50 AM EST 06/21/2024 12:56 AM EST Martinez Reynolds MD CHEMISTRY ORDERABLES Performing Organization Address [facility]/ZIP Co de Phone Number [facility] [place] [address] * Magnesium (06/21/2024 12:50 AM EST) [facility] Magnesium 0.81 0.69 - 1.07 mMol/L 06/21/2024 1:30 AM [facility] Blood VENOUS BLOOD SPECIMEN / Unknown Venipuncture / Unknown 06/21/2024 12:50 AM EST 06/21/2024 12:56 AM EST Martinez Reynolds MD CHEMISTRY ORDERABLES Performing Organization Address City/[facility]/ZIP Co de Phone Number [facility] [place] [address] * (ABNORMAL) Basic Metabolic Panel (06/21/2024 12:50 AM EST) [facility] Glucose 126 65 - 199 mg/dL 06/21/2024 1:44 AM [facility] Comment:Glucose Concentratio n >=200 mg/dL plus symptoms is consistent with Diabetes Mellitus. Blood Urea Nitrogen 12 10 - 20 mg/dL 06/21/2024 1:44 AM EST [facility] Creatinine 0.82 0.80 - 1.50 mg/dL 06/21/2024 1:44 AM [facility] Sodium 141 135 - 145 mMol/L 06/21/2024 1:44 AM [facility] Potassium 4.3 3.5 - 5.0 mMol/L 06/21/2024 1:44 AM [facility] Chloride 111(H) 98 - 107 mMol/L 06/21/2024 1:44 AM [facility] Carbon Dioxide 18(L) 22 - 31 mMol/L 06/21/2024 1:44 AM [facility] Anion Gap 12 5 - 15 mMol/L 06/21/2024 1:44 AM [facility] Calcium 9.0 8.5 - 10.5 mg/dL 06/21/2024 1:44 AM [facility] Est Glomerular Filtration Rate - Male 118 mL/min/1. 73 m?? 06/21/2024 1:44 AM [facility] Comment: This patient's estimated [...] MD CHEMISTRY ORDERABLES [facility] [place] [address] * (ABNORMAL) Hepatic Function Panel (06/20/2024 12:53 AM EST) Albumin 4.4 3.2 - 5.2 g/dL 06/20/2024 1:42 AM [facility] Aspartate Aminotransferase 65(H) <=39 unit/L 06/20/2024 1:42 AM [facility] Alanine Aminotransferase 80(H) 0 - 55 unit/L 06/20/2024 1:42 AM [facility] Alkaline Phosphatase 128 40 - 130 unit/L 06/20/2024 1:42 AM [facility] Bilirubin, Total <0.2 <=1.3 mg/dL 06/20/2024 1:42 AM [facility] Bilirubin, Direct <0.2 0.0 - 0.3 mg/dL 06/20/2024 1:42 AM [facility] Protein, Total 7.4 6.1 - 8.0 g/dL 06/20/2024 1:42 AM [facility] Blood VENOUS BLOOD SPECIMEN / Unknown Venipuncture / Unknown 06/20/2024 12:53 AM EST 06/20/2024 1:11 AM EST Martinez Reynolds MD CHEMISTRY ORDERABLES Performing Organization Address City/State/[facility] Co de Phone Number [facility] [place] [address] * (ABNORMAL) CBC (with Diff) (06/20/2024 12:53 AM EST) White Blood Cell 5.59 4.00 - 9.50 x10(3)/mc L 06/20/2024 1:23 AM [facility] Red Blood Cell 5.50 4.58 - 5.54 x10(6)/mc L 06/20/2024 1:23 AM [facility] Hemoglobin 13.5(L) 13.7 - 16.5 g/dL 06/20/2024 1:23 AM [facility] Hematocrit 40.9 40.5 - 48.5 % 06/20/2024 1:23 AM [facility] Mean Cell Volume 74.4(L) 82.9 - 93.1 fL 06/20/2024 1:23 AM [facility] Mean Cell Hemoglobin 24.5(L) 27.5 - 32.1 pg 06/20/2024 1:23 AM [facility] Mean Cell Hemoglobin Concentration 33.0 32.0 - 35.7 g/dL 06/20/2024 1:23 AM [facility] Platelet 303 145 - 357 x10(3)/mc L 06/20/2024 1:23 AM [facility] Mean Platelet Volume 8.9 7.6 - 12.9 fL 06/20/2024 1:23 AM [facility] RDW Standard Deviation 39.6 36.0 - 45.0 fL 06/20/2024 1:23 AM [facility] RDW coefficient of variation 14.7(H) 11.4 - 13.8 % 06/20/2024 1:23 AM [facility] NRBC% auto 0.0 % 06/20/2024 1:23 AM [facility] NRBC Absolute <0.01 <0.01 x10(3)/mc L 06/20/2024 1:23 AM [facility] Neutrophil % 54.2 % 06/20/2024 1:23 AM [facility] Neutrophil Absolute (ANC) - Automated 3.03 1.70 - 6.10 x10(3)/mc L 06/20/2024 1:23 AM [facility] Lymph % 31.1 % 06/20/2024 1:23 AM [facility] Lymph Absolute 1.74 0.90 - 3.20 x10(3)/mc L 06/20/2024 1:23 AM [facility] Monocyte % 11.8 % 06/20/2024 1:23 AM [facility] Monocyte Absolute 0.66 0.30 - 0.90 x10(3)/mc L 06/20/2024 1:23 AM [facility] Eos % 2.0 % 06/20/2024 1:23 AM [facility] Eos Absolute 0.11 0.00 - 0.40 x10(3)/mc L 06/20/2024 1:23 AM EST [facility] Basophil % 0.4 % 06/20/2024 1:23 AM EST [facility] Baso Absolute <0.04 0.00 - 0.10 x10(3)/mc L 06/20/2024 1:23 AM EST [facility] Immature Gran % 0.5 % 1:23 AM EST [facility] Immature Gran Absolute <0.04 0.00 - 0.04 x10(3)/mc L 06/20/2024 1:23 AM EST [facility] Blood VENOUS BLOOD SPECIMEN / Unknown Venipuncture / Unknown 06/20/2024 12:53 AM EST 06/20/2024 1:12 AM EST Martinez Reynolds MD HEMATOLOGY ORDERABLE S [facility] [place] [address] * Phosphorus (06/20/2024 12:53 AM EST) Phosphorus 3.7 2.5 - 4.5 mg/dL 06/20/2024 1:42 AM EST [facility] Blood VENOUS BLOOD SPECIMEN / Unknown Venipuncture / Unknown 06/20/2024 12:53 AM EST 06/20/2024 1:11 AM EST Martinez Reynolds MD CHEMISTRY ORDERABLES [facility] [place] [address] * Magnesium (06/20/2024 12:53 AM EST) Magnesium 0.76 0.69 - 1.07 mMol/L 06/20/2024 1:42 AM EST [facility] Blood VENOUS BLOOD SPECIMEN / Unknown Venipuncture / Unknown 06/20/2024 12:53 AM EST 06/20/2024 1:11 AM EST Martinez Reynolds MD CHEMISTRY ORDERABLES [facility] [place] [address] * (ABNORMAL) Basic Metabolic Panel (06/20/2024 12:53 AM EST) Glucose 95 65 - 199 mg/dL 06/20/2024 1:42 AM [facility] Comment:Glucose Concentratio n >=200 mg/dL plus symptoms is consistent with Diabetes Mellitus. Blood Urea Nitrogen 10 10 - 20 mg/dL 06/20/2024 1:42 AM [facility] Creatinine 0.75(L) 0.80 - 1.50 mg/dL 06/20/2024 1:42 AM [facility] Sodium 137 135 - 145 mMol/L 06/20/2024 1:42 AM [facility] Potassium 3.7 3.5 - 5.0 mMol/L 06/20/2024 1:42 AM [facility] Chloride 102 98 - 107 mMol/L 06/20/2024 1:42 AM [facility] Carbon Dioxide 20(L) 22 - 31 mMol/L 06/20/2024 1:42 AM [facility] Anion Gap 15 5 - 15 mMol/L 06/20/2024 1:42 AM [facility] Calcium 9.1 8.5 - 10.5 mg/dL 06/20/2024 1:42 AM [facility] Est Glomerular Filtration Rate - Male 121 mL/min/1. 73 m?? 06/20/2024 1:42 AM [facility] Comment: This patient's estimated [...] Reynolds MD CHEMISTRY ORDERABLES Performing Organization Address City/[facility]/ZIP Co de Phone Number [facility] [place] [address] * (ABNORMAL) Hepatic Function Panel (06/19/2024 4:10 AM EST) Albumin 4.2 3.2 - 5.2 g/dL 06/19/2024 4:51 AM [facility] Aspartate Aminotransferase 57(H) <=39 unit/L 06/19/2024 4:51 AM [facility] Alanine Aminotransferase 76(H) 0 - 55 unit/L 06/19/2024 4:51 AM [facility] Alkaline Phosphatase 133(H) 40 - 130 unit/L 06/19/2024 4:51 AM [facility] Bilirubin, Total 0.2 <=1.3 mg/dL 06/19/2024 4:51 AM [facility] Bilirubin, Direct <0.2 0.0 - 0.3 mg/dL 06/19/2024 4:51 AM [facility] Protein, Total 7.5 6.1 - 8.0 g/dL 06/19/2024 4:51 AM [facility] Blood VENOUS BLOOD SPECIMEN / Unknown Venipuncture / Unknown 06/19/2024 4:10 AM EST 06/19/2024 4:21 AM EST Martinez Reynolds MD CHEMISTRY ORDERABLES Performing Organization Address City/[facility]/ZIP Co de Phone Number [facility] [place] [address] * (ABNORMAL) CBC (with Diff) (06/19/2024 4:10 AM [facility]) [facility] White Blood Cell 6.86 4.00 - 9.50 x10(3)/mc L 06/19/2024 4:28 AM [facility] Red Blood Cell 5.60(H) 4.58 - 5.54 x10(6)/mc L 06/19/2024 4:28 AM [facility] Hemoglobin 13.8 13.7 - 16.5 g/dL 06/19/2024 4:28 AM [facility] Hematocrit 41.6 40.5 - 48.5 % 06/19/2024 4:28 AM [facility] Mean Cell Volume 74.3(L) 82.9 - 93.1 fL 06/19/2024 4:28 AM [facility] Mean Cell Hemoglobin 24.6(L) 27.5 - 32.1 pg 06/19/2024 4:28 AM [facility] Mean Cell Hemoglobin Concentration 33.2 32.0 - 35.7 g/dL 06/19/2024 4:28 AM [facility] Platelet 297 145 - 357 x10(3)/mc L 06/19/2024 4:28 AM [facility] Mean Platelet Volume 9.1 7.6 - 12.9 fL 06/19/2024 4:28 AM [facility] RDW Standard Deviation 39.1 36.0 - 45.0 fL 06/19/2024 4:28 AM [facility] RDW coefficient of variation 14.8(H) 11.4 - 13.8 % 06/19/2024 4:28 AM [facility] NRBC% auto 0.0 % 06/19/2024 4:28 AM [facility] NRBC Absolute <0.01 <0.01 x10(3)/mc L 06/19/2024 4:28 AM [facility] Neutrophil % 64.0 % 06/19/2024 4:28 AM [facility] Neutrophil Absolute (ANC) - Automated 4.39 1.70 - 6.10 x10(3)/mc L 06/19/2024 4:28 AM [facility] Lymph % 28.7 % 06/19/2024 4:28 AM [facility] Lymph Absolute 1.97 0.90 - 3.20 x10(3)/mc L 06/19/2024 4:28 AM [facility] Monocyte % 4.1 % 06/19/2024 4:28 AM [facility] Monocyte Absolute 0.28(L) 0.30 - 0.90 x10(3)/mc L 06/19/2024 4:28 AM [facility] Eos % 2.2 % 06/19/2024 4:28 AM [facility] Eos Absolute 0.15 0.00 - 0.40 x10(3)/mc L 06/19/2024 4:28 AM [facility] Basophil % 0.4 % 06/19/2024 4:28 AM [facility] Baso Absolute <0.04 0.00 - 0.10 x10(3)/mc L 06/19/2024 4:28 AM [facility] Immature Gran % 0.6 % 4:28 AM [facility] Immature Gran Absolute 0.04 0.00 - 0.04 x10(3)/mc L 06/19/2024 4:28 AM [facility] Blood VENOUS BLOOD SPECIMEN / Unknown Venipuncture / Unknown 06/19/2024 4:10 AM EST 06/19/2024 4:21 AM EST Martinez Reynolds MD HEMATOLOGY ORDERABLE S [facility] [place] [address] * (ABNORMAL) Phosphorus (06/19/2024 4:10 AM EST) Phosphorus 5.0(H) 2.5 - 4.5 mg/dL 06/19/2024 4:51 AM EST [facility] Blood VENOUS BLOOD SPECIMEN / Unknown Venipuncture / Unknown 06/19/2024 4:10 AM EST 06/19/2024 4:21 AM EST Martinez Reynolds MD CHEMISTRY ORDERABLES Performing Organization Address City/[facility] Co de Phone Number [facility] [place] [address] * Magnesium (06/19/2024 4:10 AM EST) [facility] Magnesium 0.74 0.69 - 1.07 mMol/L 06/19/2024 4:51 AM [facility] Blood VENOUS BLOOD SPECIMEN / Unknown Venipuncture / Unknown 06/19/2024 4:10 AM EST 06/19/2024 4:21 AM EST Martinez Reynolds MD CHEMISTRY ORDERABLES Performing Organization Address City/[facility] Co de Phone Number [facility] [place] [address] * (ABNORMAL) Basic Metabolic Panel (06/19/2024 4:10 AM EST) [facility] Glucose 112 65 - 199 mg/dL 06/19/2024 4:51 AM [facility] Comment:Glucose Concentratio n >=200 mg/dL plus symptoms is consistent with Diabetes Mellitus. Blood Urea Nitrogen 19 10 - 20 mg/dL 06/19/2024 4:51 AM [facility] Creatinine 0.86 0.80 - 1.50 mg/dL 06/19/2024 4:51 AM [facility] Sodium 135 135 - 145 mMol/L 06/19/2024 4:51 AM [facility] Potassium 3.8 3.5 - 5.0 mMol/L 06/19/2024 4:51 AM [facility] Chloride 97(L) 98 - 107 mMol/L 06/19/2024 4:51 AM [facility] Carbon Dioxide 25 22 - 31 mMol/L 06/19/2024 4:51 AM [facility] Anion Gap 13 5 - 15 mMol/L 06/19/2024 4:51 AM [facility] Calcium 9.4 8.5 - 10.5 mg/dL 06/19/2024 4:51 AM [facility] Est Glomerular Filtration Rate - Male 117 mL/min/1. 73 m?? 06/19/2024 4:51 AM [facility] Comment: This patient's estimated [...] Reynolds MD CHEMISTRY ORDERABLES Performing Organization Address City/State/[facility] Co de Phone Number [facility] [place] [address] * (ABNORMAL) Urinalysis with reflex Culture (06/19/2024 3:22 AM EST) Glucose, Urine Dipstick Negative Negative 06/19/2024 3:37 AM [facility] Protein, Urine Dipstick Negative Negative 06/19/2024 3:37 AM EST [facility] Bilirubin, Urine Dipstick Negative Negative 06/19/2024 3:37 AM [facility] Comment:Clinical correlation required for positive Urine Bilirubin results as false positive may occur with some drugs and drug related products. If a false positive is suspected a serum total bilirubin should be considered if clinically indicated. Urobilinogen, Urine Dipstick Normal Normal, 0.2 mg/dL, 1.0 mg/dL 06/19/2024 3:37 AM [facility] pH, Urine (dipstick) 6.5 5.0 - 8.0 06/19/2024 3:37 AM [facility] Blood, Urine Dipstick Negative Negative 06/19/2024 3:37 AM [facility] Ketone, Urine Dipstick Negative Negative 06/19/2024 3:37 AM [facility] Nitrite, Urine Dipstick Negative Negative 06/19/2024 3:37 AM [facility] Leukocytes, Urine Dipstick Negative Negative 06/19/2024 3:37 AM [facility] Specific [place] Urine Automated 1.021 1.005 - 1.030 06/19/2024 3:37 AM [facility] Appearance, Urine Dipstick Cloudy(A) Clear 06/19/2024 3:37 AM [facility] Color, Urine Dipstick Yellow Yellow, Dark Yellow 06/19/2024 3:37 AM [facility] CULTURE ADDED? 06/19/2024 3:37 AM [facility] Urine URINE SPECIMEN OBTAINED VIA STRAIGHT CATHETER / Unknown Non Blood Collection / Unknown 06/19/2024 3:22 AM EST 06/19/2024 3:31 AM EST aPmela Johnson DO URINE ORDERABLES [facility] [place] [address] * XR Chest One View (06/18/2024 7:55 PM EST) WORKSTATION ID [id number] RAD Anatomical Region Laterality Modality Chest [...] have questions please contact the health animal care giver that requested your imaging first. ? Electronically signed by: Tobias Sotomayor MD, [facility] ([phone]), at 06/18/2024 8:09 PM Narrative 06/18/2024 8:09 [...] who have questions please contactthe health animal care giver that requested your imaging first. Electronically signed by: Tobias Sotomayor MD, [facility]([phone]), at 06/18/2024 8:09 PM Pamela Johnson DO IMG DX ORDERABLES * Blood culture (06/18/2024 7:00 PM EST) Blood Culture No growth at 120 hours 06/23/2024 8:00 PM EST [facility] Blood VENOUS BLOOD SPECIMEN / Unknown Venipuncture / Unknown 06/18/2024 7:00 PM EST 06/18/2024 7:05 PM EST Pamela Johnson DO MICROBIOLOGY - BL OOD ORDERABLES Performing Organization Address [facility] Co de Phone Number [facility] [place] [address] * (ABNORMAL) Blood culture (06/18/2024 7:00 PM [...] 7:00 PM EST 06/18/2024 7:05 PM EST Pamlea Johnson DO MICROBIOLOGY - BL OOD ORDERABLES Performing Organization Address City/[facility]/ZIP Co de Phone Number [facility] [place] [address] * POC, GLUCOSE (06/18/2024 6:55 PM EST) Glucometer, POC 100 65 - 199 mg/dL 06/18/2024 6:56 PM EST [facility] Comment:Supplemental ranges: <140 mg/dL before meals <180 mg/dL all other times of the day. Blood CAPILLARY BLOOD / Unknown 06/18/2024 6:55 PM EST 06/18/2024 6:56 PM EST Pamela Johnson DO POINT OF CARE TABATHA T ORDERABLES Performing Organization Address [facility] Co de Phone Number [facility] [place] [address] * EKG 12 Lead (06/18/2024 1:41 PM EST) [facility] Signature Ventricular rate 47 BPM MUSE SYSTEM Atrial Rate 47 BPM MUSE SYSTEM P-R Interval 186 ms MUSE SYSTEM QRS Duration 114 ms MUSE SYSTEM Q-T Interval 558 ms MUSE SYSTEM QTC Calculated (Bezet) 493 ms MUSE SYSTEM Calculated P Montgomery 11 degrees MUSE SYSTEM Calculated R Montgomery 45 degrees MUSE SYSTEM Calculated T Montgomery 45 degrees MUSE SYSTEM INTERPRETATION Sinus bradycardia [...] Reynolds MD ECG ORDERABLES Performing Organization Address City/[facility] Co de Phone Number MUSE SYSTEM * Sodium (06/18/2024 12:22 PM EST) Sodium 135 135 - 145 mMol/L 06/18/2024 1:01 PM EST [facility] Blood VENOUS BLOOD SPECIMEN / Unknown Venipuncture / Unknown 06/18/2024 12:22 PM EST 06/18/2024 12:35 PM EST Pamela Emerald Gottidaniela DO CHEMISTRY ORDERAB LES [facility] [place] [address] * CT Head wo Contrast (Generic) (06/18/2024 11:18 AM EST) WORKSTATION ID [id number] RAD Anatomical Region Laterality Modality Head Computed [...] have questions please contact the health animal care giver that requested your imaging first. ? Narrative 06/18/2024 11:37 AM EST EXAMINATION: CT [...] who have questions please contactthe health animal care giver that requested your imaging first. Electronically signed by: Jimbo Casillas MD, [facility]([phone]), at 06/18/2024 11:37 AM Pamela Johnson DO G CT ORDERABLES * (ABNORMAL) Hepatic Function Panel (06/18/2024 1:26 AM EST) Albumin 4.2 3.2 - 5.2 g/dL 06/18/2024 2:02 AM [facility] Aspartate Aminotransferase 52(H) <=39 unit/L 06/18/2024 2:02 AM [facility] Alanine Aminotransferase 61(H) 0 - 55 unit/L 06/18/2024 2:02 AM [facility] Alkaline Phosphatase 118 40 - 130 unit/L 06/18/2024 2:02 AM [facility] Bilirubin, Total 0.3 <=1.3 mg/dL 06/18/2024 2:02 AM [facility] Bilirubin, Direct <0.2 0.0 - 0.3 mg/dL 06/18/2024 2:02 AM [facility] Protein, Total 6.9 6.1 - 8.0 g/dL 06/18/2024 2:02 AM [facility] Blood VENOUS BLOOD SPECIMEN / Unknown Venipuncture / Unknown 06/18/2024 1:26 AM EST 06/18/2024 1:34 AM EST Martinez Reynolds MD CHEMISTRY ORDERABLES Performing Organization Address City/State/[facility] Co de Phone Number [facility] [place] [address] * (ABNORMAL) CBC (with Diff) (06/18/2024 1:26 AM EST) White Blood Cell 9.78(H) 4.00 - 9.50 x10(3)/mc L 06/18/2024 1:38 AM [facility] Red Blood Cell 5.02 4.58 - 5.54 x10(6)/mc L 06/18/2024 1:38 AM [facility] Hemoglobin 12.4(L) 13.7 - 16.5 g/dL 06/18/2024 1:38 AM [facility] Hematocrit 37.2(L) 40.5 - 48.5 % 06/18/2024 1:38 AM [facility] Mean Cell Volume 74.1(L) 82.9 - 93.1 fL 06/18/2024 1:38 AM [facility] Mean Cell Hemoglobin 24.7(L) 27.5 - 32.1 pg 06/18/2024 1:38 AM [facility] Mean Cell Hemoglobin Concentration 33.3 32.0 - 35.7 g/dL 06/18/2024 1:38 AM [facility] Platelet 262 145 - 357 x10(3)/mc L 06/18/2024 1:38 AM [facility] Mean Platelet Volume 9.2 7.6 - 12.9 fL 06/18/2024 1:38 AM [facility] RDW Standard Deviation 40.8 36.0 - 45.0 fL 06/18/2024 1:38 AM [facility] RDW coefficient of variation 15.3(H) 11.4 - 13.8 % 06/18/2024 1:38 AM [facility] NRBC% auto 0.0 % 06/18/2024 1:38 AM [facility] NRBC Absolute <0.01 <0.01 x10(3)/mc L 06/18/2024 1:38 AM [facility] Neutrophil % 72.8 % 06/18/2024 1:38 AM [facility] Neutrophil Absolute (ANC) - Automated 7.12(H) 1.70 - 6.10 x10(3)/mc L 06/18/2024 1:38 AM [facility] Lymph % 16.9 % 06/18/2024 1:38 AM [facility] Lymph Absolute 1.65 0.90 - 3.20 x10(3)/mc L 06/18/2024 1:38 AM [facility] Monocyte % 8.7 % 06/18/2024 1:38 AM [facility] Monocyte Absolute 0.85 0.30 - 0.90 x10(3)/mc L 06/18/2024 1:38 AM [facility] Eos % 1.0 % 06/18/2024 1:38 AM [facility] Eos Absolute 0.10 0.00 - 0.40 x10(3)/mc L 06/18/2024 1:38 AM [facility] Basophil % 0.2 % 06/18/2024 1:38 AM [facility] Baso Absolute <0.04 0.00 - 0.10 x10(3)/mc L 06/18/2024 1:38 AM [facility] Immature Gran % 0.4 % 1:38 AM [facility] Immature Gran Absolute 0.04 0.00 - 0.04 x10(3)/mc L 06/18/2024 1:38 AM EST [facility] Blood VENOUS BLOOD SPECIMEN / Unknown Venipuncture / Unknown 06/18/2024 1:26 AM EST 06/18/2024 1:34 AM EST Martinez Reynolds MD HEMATOLOGY ORDERABLE S Performing Organization Address City/[facility]/ZIP Co de Phone Number [facility] [place] [address] * (ABNORMAL) Phosphorus (06/18/2024 1:26 AM EST) Phosphorus 5.7(H) 2.5 - 4.5 mg/dL 06/18/2024 2:02 AM EST [facility] Blood VENOUS BLOOD SPECIMEN / Unknown Venipuncture / Unknown 06/18/2024 1:26 AM EST 06/18/2024 1:34 AM EST Martinez Reynolds MD CHEMISTRY ORDERABLES Performing Organization Address [facility] Co de Phone Number [facility] [place] [address] * Magnesium (06/18/2024 1:26 AM EST) Magnesium 0.84 0.69 - 1.07 mMol/L 06/18/2024 2:02 AM EST [facility] Blood VENOUS BLOOD SPECIMEN / Unknown Venipuncture / Unknown 06/18/2024 1:26 AM EST 06/18/2024 1:34 AM EST Martinez Reynolds MD CHEMISTRY ORDERABLES Performing Organization Address City/[facility]/ZIP Co de Phone Number [facility] [place] [address] * Basic Metabolic Panel (06/18/2024 1:26 AM EST) Glucose 106 65 - 199 mg/dL 06/18/2024 2:02 AM EST [facility] Comment:Glucose Concentratio n >=200 mg/dL plus symptoms is consistent with Diabetes Mellitus. Blood Urea Nitrogen 15 10 - 20 mg/dL 06/18/2024 2:02 AM [facility] Creatinine 1.05 0.80 - 1.50 mg/dL 06/18/2024 2:02 AM [facility] Sodium 138 135 - 145 mMol/L 06/18/2024 2:02 AM [facility] Potassium 4.4 3.5 - 5.0 mMol/L 06/18/2024 2:02 AM [facility] Chloride 102 98 - 107 mMol/L 06/18/2024 2:02 AM [facility] Carbon Dioxide 25 22 - 31 mMol/L 06/18/2024 2:02 AM [facility] Anion Gap 11 5 - 15 mMol/L 06/18/2024 2:02 AM [facility] Calcium 9.3 8.5 - 10.5 mg/dL 06/18/2024 2:02 AM [facility] Est Glomerular Filtration Rate - Male 96 mL/min/1. 73 m?? 06/18/2024 2:02 AM [facility] Comment: This patient's estimated [...] MD CHEMISTRY ORDERABLES [facility] [place] [address] * EKG 12 Lead (06/18/2024 12:53 AM EST) Pathologist [facility] Ventricular rate 79 BPM MUSE SYSTEM Atrial Rate 79 BPM MUSE SYSTEM P-R Interval 160 ms MUSE SYSTEM QRS Duration 98 ms MUSE SYSTEM Q-T Interval 420 ms MUSE SYSTEM QTC Calculated (Bezet) 481 ms MUSE SYSTEM Calculated P Montgomery 17 degrees MUSE SYSTEM Calculated R Montgomery 46 degrees MUSE SYSTEM Calculated T Montgomery 45 degrees MUSE SYSTEM INTERPRETATION Normal sinus rhythm Nonspecific T wave abnormality Prolonged QT Abnormal ECG When compared with ECG of 14-JUN-2024 01:04, Nonspecific T wave abnormality now evident in Anterior leads I personally reviewed the tracing and edited the fellows interpretation Confirmed by fellow MD Corbin, Maninder ([id number]) on 06/18/2024 4:57:53 PM Confirmed by Anthony Penn MD ([id number]) on 06/19/2024 3:21:54 PM MUSE SYSTEM 06/18/2024 12:5 3 AM EST 06/19/2024 3:21 PM EST Samantha Babb MD ECG ORDERABLES MUSE SYSTEM * Sodium (06/17/2024 5:50 PM EST) [facility] Sodium 141 135 - 145 mMol/L 06/17/2024 6:38 PM EST [facility] Blood VENOUS BLOOD SPECIMEN / Unknown Venipuncture / Unknown 06/17/2024 5:50 PM EST 06/17/2024 6:07 PM EST Channing Ballesteros MD CHEMISTRY ORDERABLES [facility] [place] [address] * (ABNORMAL) Hepatic Function Panel (06/17/2024 11:58 AM EST) Pathologist [facility] Albumin 4.2 3.2 - 5.2 g/dL 06/17/2024 12:45 PM EST [facility] Aspartate Aminotransferase 37 <=39 unit/L 06/17/2024 12:45 PM [facility] Alanine Aminotransferase 58(H) 0 - 55 unit/L 06/17/2024 12:45 PM [facility] Alkaline Phosphatase 118 40 - 130 unit/L 06/17/2024 12:45 PM [facility] Bilirubin, Total 0.2 <=1.3 mg/dL 06/17/2024 12:45 PM [facility] Bilirubin, Direct <0.2 0.0 - 0.3 mg/dL 06/17/2024 12:45 PM [facility] Protein, Total 7.1 6.1 - 8.0 g/dL 06/17/2024 12:45 PM [facility] Blood VENOUS BLOOD SPECIMEN / Unknown Venipuncture / Unknown 06/17/2024 11:58 AM EST 06/17/2024 12:11 PM EST Pamela Johnson DO CHEMISTRY ORDERAB LES [facility] [place] [address] * Sodium (06/17/2024 11:58 AM EST) Sodium 141 135 - 145 mMol/L 06/17/2024 12:45 PM EST [facility] Blood VENOUS BLOOD SPECIMEN / Unknown Venipuncture / Unknown 06/17/2024 11:58 AM EST 06/17/2024 12:11 PM EST Channing Ballesteros MD [place] [address] * Sodium (06/17/2024 6:23 AM EST) Sodium 140 135 - 145 mMol/L 06/17/2024 6:53 AM EST [facility] Blood VENOUS BLOOD SPECIMEN / Unknown Venipuncture / Unknown 06/17/2024 6:23 AM EST 06/17/2024 6:29 AM EST Channing Ballesteros MD CHEMISTRY ORDERABLES [facility] [place] [address] * (ABNORMAL) CBC (with Diff) (06/17/2024 12:22 AM EST) White Blood Cell 6.81 4.00 - 9.50 x10(3)/mc L 06/17/2024 12:37 AM [facility] Red Blood Cell 5.20 4.58 - 5.54 x10(6)/mc L 06/17/2024 12:37 AM [facility] Hemoglobin 12.9(L) 13.7 - 16.5 g/dL 06/17/2024 12:37 AM [facility] Hematocrit 37.9(L) 40.5 - 48.5 % 06/17/2024 12:37 AM [facility] Mean Cell Volume 72.9(L) 82.9 - 93.1 fL 06/17/2024 12:37 AM [facility] Mean Cell Hemoglobin 24.8(L) 27.5 - 32.1 pg 06/17/2024 12:37 AM [facility] Mean Cell Hemoglobin Concentration 34.0 32.0 - 35.7 g/dL 06/17/2024 12:37 AM [facility] Platelet 301 145 - 357 x10(3)/mc L 06/17/2024 12:37 AM [facility] Mean Platelet Volume 9.0 7.6 - 12.9 fL 06/17/2024 12:37 AM [facility] RDW Standard Deviation 38.8 36.0 - 45.0 fL 06/17/2024 12:37 AM [facility] RDW coefficient of variation 14.9(H) 11.4 - 13.8 % 06/17/2024 12:37 AM [facility] NRBC% auto 0.0 % 06/17/2024 12:37 AM [facility] NRBC Absolute <0.01 <0.01 x10(3)/mc L 06/17/2024 12:37 AM [facility] Neutrophil % 58.2 % 06/17/2024 12:37 AM [facility] Neutrophil Absolute (ANC) - Automated 3.96 1.70 - 6.10 x10(3)/mc L 06/17/2024 12:37 AM [facility] Lymph % 30.1 % 06/17/2024 12:37 AM [facility] Lymph Absolute 2.05 0.90 - 3.20 x10(3)/mc L 06/17/2024 12:37 AM [facility] Monocyte % 9.8 % 06/17/2024 12:37 AM [facility] Monocyte Absolute 0.67 0.30 - 0.90 x10(3)/mc L 06/17/2024 12:37 AM [facility] Eos % 1.0 % 06/17/2024 12:37 AM [facility] Eos Absolute 0.07 0.00 - 0.40 x10(3)/mc L 06/17/2024 12:37 AM [facility] Basophil % 0.3 % 06/17/2024 12:37 AM [facility] Baso Absolute <0.04 0.00 - 0.10 x10(3)/mc L 06/17/2024 12:37 AM [facility] Immature Gran % 0.6 % 12:37 AM [facility] Immature Gran Absolute 0.04 0.00 - 0.04 x10(3)/mc L 06/17/2024 12:37 AM [facility] Blood VENOUS BLOOD SPECIMEN / Unknown Venipuncture / Unknown 06/17/2024 12:22 AM EST 06/17/2024 12:28 AM EST Martinez Reynolds MD HEMATOLOGY ORDERABLE S [facility] [place] [address] * Phosphorus (06/17/2024 12:22 AM EST) Phosphorus 4.3 2.5 - 4.5 mg/dL 06/17/2024 12:58 AM EST [facility] Blood VENOUS BLOOD SPECIMEN / Unknown Venipuncture / Unknown 06/17/2024 12:22 AM EST 06/17/2024 12:28 AM EST Martinez Reynolds MD CHEMISTRY ORDERABLES Performing Organization Address City/[facility]/ZIP Co de Phone Number [facility] [place] [address] * Magnesium (06/17/2024 12:22 AM EST) Magnesium 0.88 0.69 - 1.07 mMol/L 06/17/2024 12:58 AM EST [facility] Blood VENOUS BLOOD SPECIMEN / Unknown Venipuncture / Unknown 06/17/2024 12:22 AM EST 06/17/2024 12:28 AM EST Martinez Reynolds MD CHEMISTRY ORDERABLES [facility] [place] [address] * Basic Metabolic Panel (06/17/2024 12:22 AM EST) Glucose 99 65 - 199 mg/dL 06/17/2024 1:12 AM EST [facility] Comment:Glucose Concentratio n >=200 mg/dL plus symptoms is consistent with Diabetes Mellitus. Blood Urea Nitrogen 14 10 - 20 mg/dL 06/17/2024 1:12 AM EST [facility] Creatinine 0.90 0.80 - 1.50 mg/dL 06/17/2024 1:12 AM EST [facility] Sodium 140 135 - 145 mMol/L 06/17/2024 1:12 AM [facility] Potassium 4.1 3.5 - 5.0 mMol/L 06/17/2024 1:12 AM [facility] Chloride 105 98 - 107 mMol/L 06/17/2024 1:12 AM [facility] Carbon Dioxide 24 22 - 31 mMol/L 06/17/2024 1:12 AM [facility] Anion Gap 11 5 - 15 mMol/L 06/17/2024 1:12 AM [facility] Calcium 9.4 8.5 - 10.5 mg/dL 06/17/2024 1:12 AM [facility] Est Glomerular Filtration Rate - Male 115 mL/min/1. 73 m?? 06/17/2024 1:12 AM [facility] Comment: This patient's estimated [...] MD CHEMISTRY ORDERABLES [facility] [place] [address] * Sodium (06/16/2024 6:37 PM EST) Sodium 142 135 - 145 mMol/L 06/16/2024 6:55 PM EST [facility] Blood VENOUS BLOOD SPECIMEN / Unknown Venipuncture / Unknown 06/16/2024 6:37 PM EST 06/16/2024 6:42 PM EST Channing Ballesteros MD CHEMISTRY ORDERABLES Performing Organization Address City/[facility]/ZIP Co de Phone Number [facility] [place] [address] * Sodium (06/16/2024 2:05 PM EST) Sodium 135 135 - 145 mMol/L 06/16/2024 2:54 PM EST [facility] Blood VENOUS BLOOD SPECIMEN / Unknown Venipuncture / Unknown 06/16/2024 2:05 PM EST 06/16/2024 2:23 PM EST Channing Ballesteros MD CHEMISTRY ORDERABLES Performing Organization Address City/[facility]/ZIP Co de Phone Number [facility] [place] [address] * Sodium (06/16/2024 12:03 PM EST) Sodium 139 135 - 145 mMol/L 06/16/2024 1:02 PM EST [facility] Blood VENOUS BLOOD SPECIMEN / Unknown Venipuncture / Unknown 06/16/2024 12:03 PM EST 06/16/2024 12:06 PM EST Marline Calderon APRN CHEMISTRY ORDERABL ES Performing Organization Address City/[facility]/ZIP Co de Phone Number [facility] [place] [address] * (ABNORMAL) Sodium (06/16/2024 6:00 AM EST) Sodium 131(L) 135 - 145 mMol/L 06/16/2024 6:26 AM EST [facility] Blood VENOUS BLOOD SPECIMEN / Unknown Venipuncture / Unknown 06/16/2024 6:00 AM EST 06/16/2024 6:03 AM EST Marline Calderon [employer] CHEMISTRY ORDERABL ES [facility] [place] [address] * (ABNORMAL) CBC (with Diff) (06/16/2024 12:09 AM EST) White Blood Cell 7.71 4.00 - 9.50 x10(3)/mc L 06/16/2024 12:26 AM [facility] Red Blood Cell 4.69 4.58 - 5.54 x10(6)/mc L 06/16/2024 12:26 AM [facility] Hemoglobin 11.7(L) 13.7 - 16.5 g/dL 06/16/2024 12:26 AM [facility] Hematocrit 33.8(L) 40.5 - 48.5 % 06/16/2024 12:26 AM [facility] Mean Cell Volume 72.1(L) 82.9 - 93.1 fL 06/16/2024 12:26 AM [facility] Mean Cell Hemoglobin 24.9(L) 27.5 - 32.1 pg 06/16/2024 12:26 AM [facility] Mean Cell Hemoglobin Concentration 34.6 32.0 - 35.7 g/dL 06/16/2024 12:26 AM [facility] Platelet 241 145 - 357 x10(3)/mc L 06/16/2024 12:26 AM [facility] Mean Platelet Volume 9.3 7.6 - 12.9 fL 06/16/2024 12:26 AM [facility] RDW Standard Deviation 37.3 36.0 - 45.0 fL 06/16/2024 12:26 AM [facility] RDW coefficient of variation 14.5(H) 11.4 - 13.8 % 06/16/2024 12:26 AM [facility] NRBC% auto 0.0 % 06/16/2024 12:26 AM [facility] NRBC Absolute <0.01 <0.01 x10(3)/mc L 06/16/2024 12:26 AM [facility] Neutrophil % 64.4 % 06/16/2024 12:26 AM [facility] Neutrophil Absolute (ANC) - Automated 4.96 1.70 - 6.10 x10(3)/mc L 06/16/2024 12:26 AM [facility] Lymph % 23.7 % 06/16/2024 12:26 AM [facility] [facility] Lymph Absolute 1.83 0.90 - 3.20 x10(3)/mc L 06/16/2024 12:26 AM [facility] Monocyte % 9.7 % 06/16/2024 12:26 AM [facility] Monocyte Absolute 0.75 0.30 - 0.90 x10(3)/mc L 06/16/2024 12:26 AM [facility] Eos % 1.0 % 06/16/2024 12:26 AM [facility] Eos Absolute 0.08 0.00 - 0.40 x10(3)/mc L 06/16/2024 12:26 AM [facility] Basophil % 0.4 % 06/16/2024 12:26 AM [facility] Baso Absolute <0.04 0.00 - 0.10 x10(3)/mc L 06/16/2024 12:26 AM [facility] Immature Gran % 0.8 % 12:26 AM [facility] Immature Gran Absolute 0.06(H) 0.00 - 0.04 x10(3)/mc L 06/16/2024 12:26 AM [facility] Blood VENOUS BLOOD SPECIMEN / Unknown Venipuncture / Unknown 06/16/2024 12:09 AM EST 06/16/2024 12:21 AM EST Martinez Reynolds MD HEMATOLOGY ORDERABLE S [facility] [place] [address] * Phosphorus (06/16/2024 12:09 AM EST) Phosphorus 3.2 2.5 - 4.5 mg/dL 06/16/2024 12:50 AM EST [facility] Blood VENOUS BLOOD SPECIMEN / Unknown Venipuncture / Unknown 06/16/2024 12:09 AM EST 06/16/2024 12:21 AM EST Martinez Reynolds MD CHEMISTRY ORDERABLES Performing Organization Address City/[facility]/ZIP Co de Phone Number [facility] [place] [address] * Magnesium (06/16/2024 12:09 AM EST) Magnesium 0.85 0.69 - 1.07 mMol/L 06/16/2024 12:50 AM EST [facility] Blood VENOUS BLOOD SPECIMEN / Unknown Venipuncture / Unknown 06/16/2024 12:09 AM EST 06/16/2024 12:21 AM EST Martinez Reynolds MD CHEMISTRY ORDERABLES [facility] [place] [address] * (ABNORMAL) Basic Metabolic Panel (06/16/2024 12:09 AM EST) Glucose 92 65 - 199 mg/dL 06/16/2024 12:50 AM EST [facility] Comment:Glucose Concentratio n >=200 mg/dL plus symptoms is consistent with Diabetes Mellitus. Blood Urea Nitrogen 12 10 - 20 mg/dL 06/16/2024 12:50 AM EST [facility] Creatinine 0.92 0.80 - 1.50 mg/dL 06/16/2024 12:50 AM EST [facility] Sodium 131(L) 135 - 145 mMol/L 06/16/2024 12:50 AM [facility] Potassium 3.9 3.5 - 5.0 mMol/L 06/16/2024 12:50 AM [facility] Chloride 99 98 - 107 mMol/L 06/16/2024 12:50 AM [facility] Carbon Dioxide 22 22 - 31 mMol/L 06/16/2024 12:50 AM [facility] Anion Gap 10 5 - 15 mMol/L 06/16/2024 12:50 AM [facility] Calcium 8.3(L) 8.5 - 10.5 mg/dL 06/16/2024 12:50 AM [facility] Est Glomerular Filtration Rate - Male 112 mL/min/1. 73 m?? 06/16/2024 12:50 AM [facility] Comment: This patient's estimated [...] MD CHEMISTRY ORDERABLES [facility] [place] [address] * (ABNORMAL) Sodium (2024 5:58 PM EST) Sodium 129(L) 135 - 145 mMol/L 2024 6:37 PM EST [facility] Blood VENOUS BLOOD SPECIMEN / Unknown Venipuncture / Unknown 2024 5:58 PM EST 2024 6:05 PM EST Marline Calderon AUTOMOBILE DAMAGE APPRAISER CHEMISTRY ORDERABL ES [facility] [place] [address] * MRI Brain wwo Contrast (Generic) (2024 4:20 PM EST) [employer] WORKSTATION ID [id number] RAD Anatomical Region Laterality Modality Head Magnetic [...] have questions please contact the health animal care giver that requested your imaging first. ? Narrative 2024 4:46 PM EST EXAMINATION: MRI [...] clip with its blades near the right TELE MARKETING EXECUTIVE. Procedure Note Raudel Heredia MD - 2024 [...] aneurysm clipwith its blades near the right TELE MARKETING EXECUTIVE. IMPRESSION Homogeneously enhancing 3.5 cm mass along [...] who have questions please contactthe health animal care giver that requested your imaging first. Electronically signed by: Raudel Heredia MD, [facility]([phone]), at 2024 4:46 PM Marline Calderon APRN IMG MRI ORDERABLES * (ABNORMAL) Sodium (2024 12:07 PM EST) Sodium 129(L) 135 - 145 mMol/L 2024 12:47 PM EST [facility] Blood VENOUS BLOOD SPECIMEN / Unknown Venipuncture / Unknown 2024 12:07 PM EST 2024 12:33 PM EST Marline L Kvng AUTOMOBILE DAMAGE APPRAISER CHEMISTRY ORDERABL ES Performing Organization Address City/[facility]/ZIP Co de Phone Number [facility] [place] [address] * (ABNORMAL) Sodium (2024 5:54 AM EST) Sodium 128(L) 135 - 145 mMol/L 2024 6:42 AM EST [facility] Blood VENOUS BLOOD SPECIMEN / Unknown Venipuncture / Unknown 2024 5:54 AM EST 2024 6:14 AM EST Marline Pack Kvng AUTOMOBILE DAMAGE APPRAISER CHEMISTRY ORDERABL ES Performing Organization Address City/[facility]/ZIP Co de Phone Number [facility] [place] [address] * (ABNORMAL) CBC (with Diff) (2024 12:06 AM EST) White Blood Cell 6.30 4.00 - 9.50 x10(3)/mc L 2024 12:17 AM EST [facility] Red Blood Cell 4.79 4.58 - 5.54 x10(6)/mc L 2024 12:17 AM [facility] Hemoglobin 11.9(L) 13.7 - 16.5 g/dL 2024 12:17 AM [facility] Hematocrit 34.2(L) 40.5 - 48.5 % 2024 12:17 AM [facility] Mean Cell Volume 71.4(L) 82.9 - 93.1 fL 2024 12:17 AM [facility] Mean Cell Hemoglobin 24.8(L) 27.5 - 32.1 pg 2024 12:17 AM [facility] Mean Cell Hemoglobin Concentration 34.8 32.0 - 35.7 g/dL 2024 12:17 AM [facility] Platelet 269 145 - 357 x10(3)/mc L 2024 12:17 AM [facility] Mean Platelet Volume 9.1 7.6 - 12.9 fL 2024 12:17 AM [facility] RDW Standard Deviation 35.5(L) 36.0 - 45.0 fL 2024 12:17 AM [facility] RDW coefficient of variation 13.9(H) 11.4 - 13.8 % 2024 12:17 AM [facility] NRBC% auto 0.0 % 2024 12:17 AM [facility] NRBC Absolute <0.01 <0.01 x10(3)/mc L 2024 12:17 AM [facility] Neutrophil % 57.9 % 2024 12:17 AM [facility] Neutrophil Absolute (ANC) - Automated 3.65 1.70 - 6.10 x10(3)/mc L 2024 12:17 AM [facility] Lymph % 30.3 % 2024 12:17 AM [facility] Lymph Absolute 1.91 0.90 - 3.20 x10(3)/mc L 2024 12:17 AM [facility] Monocyte % 9.7 % 2024 12:17 AM [facility] Monocyte Absolute 0.61 0.30 - 0.90 x10(3)/mc L 2024 12:17 AM [facility] Eos % 1.3 % 2024 12:17 AM [facility] Eos Absolute 0.08 0.00 - 0.40 x10(3)/mc L 2024 12:17 AM [facility] Basophil % 0.3 % 2024 12:17 AM [facility] Baso Absolute <0.04 0.00 - 0.10 x10(3)/mc L 2024 12:17 AM [facility] Immature Gran % 0.5 % 12:17 AM [facility] Immature Gran Absolute <0.04 0.00 - 0.04 x10(3)/mc L 2024 12:17 AM [facility] Blood VENOUS BLOOD SPECIMEN / Unknown Venipuncture / Unknown 2024 12:06 AM EST 2024 12:10 AM EST Martinez Reynolds MD HEMATOLOGY ORDERABLE S Performing Organization Address City/State/[facility] Co de Phone Number [facility] [place] [address] * Phosphorus (2024 12:06 AM EST) Phosphorus 2.8 2.5 - 4.5 mg/dL 2024 12:39 AM [facility] Blood VENOUS BLOOD SPECIMEN / Unknown Venipuncture / Unknown 2024 12:06 AM EST 2024 12:10 AM EST Martinez Reynolds MD CHEMISTRY ORDERABLES [facility] [place] [address] * Magnesium (2024 12:06 AM EST) Pathologist [facility] Magnesium 0.79 0.69 - 1.07 mMol/L 2024 12:39 AM [facility] Blood VENOUS BLOOD SPECIMEN / Unknown Venipuncture / Unknown 2024 12:06 AM EST 2024 12:10 AM EST Martinez Reynolds MD CHEMISTRY ORDERABLES Performing Organization Address City/[facility]/ZIP Co de Phone Number [facility] [place] [address] * (ABNORMAL) Basic Metabolic Panel (2024 12:06 AM EST) [facility] Glucose 103 65 - 199 mg/dL 2024 12:39 AM [facility] Comment:Glucose Concentratio n >=200 mg/dL plus symptoms is consistent with Diabetes Mellitus. Blood Urea Nitrogen 14 10 - 20 mg/dL 2024 12:39 AM [facility] Creatinine 0.74(L) 0.80 - 1.50 mg/dL 2024 12:39 AM [facility] Sodium 128(L) 135 - 145 mMol/L 2024 12:39 AM [facility] Potassium 4.1 3.5 - 5.0 mMol/L 2024 12:39 AM [facility] Chloride 97(L) 98 - 107 mMol/L 2024 12:39 AM [facility] Carbon Dioxide 19(L) 22 - 31 mMol/L 2024 12:39 AM [facility] Anion Gap 12 5 - 15 mMol/L 2024 12:39 AM [facility] Calcium 8.1(L) 8.5 - 10.5 mg/dL 2024 12:39 AM EST [facility] Est Glomerular Filtration Rate - Male 122 mL/min/1. 73 m?? 2024 12:39 AM EST [facility] Comment: This patient's estimated [...] MD CHEMISTRY ORDERABLES [facility] [place] [address] * (ABNORMAL) Sodium (06/14/2024 6:49 PM EST) Sodium 126(L) 135 - 145 mMol/L 06/14/2024 7:17 PM EST [facility] Blood VENOUS BLOOD SPECIMEN / Unknown Venipuncture / Unknown 06/14/2024 6:49 PM EST 06/14/2024 6:53 PM EST Marline Calderon APRN CHEMISTRY ORDERABL ES [facility] [place] [address] * EEG Continuous Monitoring Inpatient (06/14/2024 3:33 [...] Alfred MD CHEMISTRY ORDERABLES Performing Organization Address City/[facility]/ZIP Co de Phone Number [facility] [place] [address] * (ABNORMAL) Sodium (06/14/2024 12:12 PM EST) Sodium 125(L) 135 - 145 mMol/L 06/14/2024 12:48 PM EST [facility] Blood VENOUS BLOOD SPECIMEN / Unknown Venipuncture / Unknown 06/14/2024 12:12 PM EST 06/14/2024 12:20 PM EST Mariola Alfred MD CHEMISTRY ORDERABLES [facility] [place] [address] * (ABNORMAL) Sodium (06/14/2024 10:35 AM EST) Sodium 125(L) 135 - 145 mMol/L 06/14/2024 11:21 AM EST [facility] Blood VENOUS BLOOD SPECIMEN / Unknown Venipuncture / Unknown 06/14/2024 10:35 AM EST 06/14/2024 10:44 AM EST Mariola Alfred MD CHEMISTRY ORDERABLES [facility] [place] [address] * Request For 2nd Read CT Head (06/14/2024 9:46 AM EST) WORKSTATION ID [id number] RAD Anatomical Region Laterality Modality Head SO [...] have questions please contact the health animal care giver that requested your imaging first. ? Narrative 06/14/2024 10:41 AM EST EXAMINATION: REQUEST FOR 2ND READ CT HEAD CLINICAL HISTORY: New seizure with known mass, ?enlargening. Presenting with seizure; Sending Institution [facility]; Date of exam [id number]; I believe a reinterpretation of this exam may alter care of Patient. Yes TECHNIQUE: Reinterpretation of noncontrast CT head performed at [facility] 06/13/2024 at 2143 hours COMPARISON: [...] known mass, ?enlargening. Presentingwith seizure; Sending Institution [facility]; Date of exam [id number]; I believe a reinterpretation of this exam may alter care of Patient. Yes TECHNIQUE: Reinterpretation of noncontrast CT head performed at [facility] 06/13/2024 at 2143 hours COMPARISON: Noncontrast [...] who have questions please contactthe health animal care giver that requested your imaging first. Lexie Osullivan AUTOMOBILE DAMAGE APPRAISER IMG OUTSIDE INTERP RETATION ORDERABLES * (ABNORMAL) Urinalysis Microscopic (06/14/2024 8:06 AM EST) Bacteria, Urine None None /HPF 12:26 PM [facility] Amorphous Crystals, Urine Many(A) None /HPF 06/14/2024 12:26 PM [facility] RBC, Urine 1 0 - 3 /HPF 06/14/2024 12:26 PM [facility] WBC, Urine 1 0 - 3 /HPF 06/14/2024 12:26 PM [facility] Squamous Epithelial Cells, Urine 0 0 - 5 /HPF 06/14/2024 12:26 PM [facility] Hyaline Casts, Urine 0 0 - 2 /LPF 06/14/2024 12:26 PM [facility] Urine URINE SPECIMEN / Unknown Non Blood Collection / Unknown 06/14/2024 8:06 AM EST 06/14/2024 8:52 AM EST Marline Calderon AUTOMOBILE DAMAGE APPRAISER URINE ORDERABLES Performing Organization Address City/[facility]/ZIP Co de Phone Number [facility] [place] [address] * Urinalysis Microscopic Exam (06/14/2024 8:06 AM EST) Urine URINE SPECIMEN / Unknown Non Blood Collection / Unknown 06/14/2024 8:06 AM EST 06/14/2024 8:52 AM EST Marline Calderon AUTOMOBILE DAMAGE APPRAISER URINE ORDERABLES [facility] [place] [address] * (ABNORMAL) Urinalysis Dipstick (06/14/2024 8:06 AM EST) Glucose, Urine Dipstick Negative Negative 06/14/2024 12:26 PM [facility] Protein, Urine Dipstick Negative Negative 06/14/2024 12:26 PM [facility] Bilirubin, Urine Dipstick Negative Negative 06/14/2024 12:26 PM [facility] Comment:Clinical correlation required for positive Urine Bilirubin results as false positive may occur with some drugs and drug related products. If a false positive is suspected a serum total bilirubin should be considered if clinically indicated. Urobilinogen, Urine Dipstick Normal Normal, 0.2 mg/dL, 1.0 mg/dL 06/14/2024 12:26 PM [facility] pH, Urine (dipstick) 7.0 5.0 - 8.0 06/14/2024 12:26 PM [facility] Blood, Urine Dipstick Negative Negative 06/14/2024 12:26 PM [facility] Ketone, Urine Dipstick Negative Negative 06/14/2024 12:26 PM [facility] Nitrite, Urine Dipstick Negative Negative 06/14/2024 12:26 PM [facility] Leukocytes, Urine Dipstick Negative Negative 06/14/2024 12:26 PM [facility] Specific [place] Urine Automated 1.016 1.005 - 1.030 06/14/2024 12:26 PM [facility] Appearance, Urine Dipstick Turbid(A) Clear 06/14/2024 12:26 PM [facility] Color, Urine Dipstick Yellow Yellow, Dark Yellow 06/14/2024 12:26 PM [facility] CULTURE ADDED? 06/14/2024 12:26 PM [facility] Urine URINE SPECIMEN / Unknown Non Blood Collection / Unknown 06/14/2024 8:06 AM EST 06/14/2024 8:52 AM EST Marline Calderon APRN URINE ORDERABLES [facility] [place] [address] * (ABNORMAL) Sodium (06/14/2024 8:06 AM EST) Sodium 124(L) 135 - 145 mMol/L 06/14/2024 9:59 AM EST [facility] Blood VENOUS BLOOD SPECIMEN / Unknown Venipuncture / Unknown 06/14/2024 8:06 AM EST 06/14/2024 8:53 AM EST Mariola Alfred MD CHEMISTRY ORDERABLES [facility] [place] [address] * Electrolytes, urine, random (06/14/2024 8:06 AM [...] Alfred MD URINE ORDERABLES Performing Organization Address City/[facility]/ZIP Co de Phone Number [facility] [place] [address] * Osmolality, urine, random (06/14/2024 8:06 AM EST) Osmolality, Urine 496 50 - 1,200 mOsm/kg 06/14/2024 10:55 AM EST [facility] Urine URINE SPECIMEN / Unknown Non Blood Collection / Unknown 06/14/2024 8:06 AM EST 06/14/2024 8:52 AM EST Mariola Alfred MD URINE ORDERABLES [facility] [place] [address] * (ABNORMAL) CBC (with Diff) (06/14/2024 5:27 AM EST) White Blood Cell 8.68 4.00 - 9.50 x10(3)/mc L 06/14/2024 5:54 AM [facility] Red Blood Cell 5.08 4.58 - 5.54 x10(6)/mc L 06/14/2024 5:54 AM [facility] Hemoglobin 12.5(L) 13.7 - 16.5 g/dL 06/14/2024 5:54 AM [facility] Hematocrit 35.8(L) 40.5 - 48.5 % 06/14/2024 5:54 AM [facility] Mean Cell Volume 70.5(L) 82.9 - 93.1 fL 06/14/2024 5:54 AM [facility] Mean Cell Hemoglobin 24.6(L) 27.5 - 32.1 pg 06/14/2024 5:54 AM [facility] Mean Cell Hemoglobin Concentration 34.9 32.0 - 35.7 g/dL 06/14/2024 5:54 AM [facility] Platelet 284 145 - 357 x10(3)/mc L 06/14/2024 5:54 AM [facility] Mean Platelet Volume 9.2 7.6 - 12.9 fL 06/14/2024 5:54 AM [facility] RDW Standard Deviation 34.3(L) 36.0 - 45.0 fL 06/14/2024 5:54 AM [facility] RDW coefficient of variation 13.6 11.4 - 13.8 % 06/14/2024 5:54 AM [facility] NRBC% auto 0.0 % 06/14/2024 5:54 AM [facility] NRBC Absolute <0.01 <0.01 x10(3)/mc L 06/14/2024 5:54 AM [facility] Neutrophil % 81.7 % 06/14/2024 5:54 AM [facility] Neutrophil Absolute (ANC) - Automated 7.09(H) 1.70 - 6.10 x10(3)/mc L 06/14/2024 5:54 AM [facility] Lymph % 13.0 % 06/14/2024 5:54 AM [facility] Lymph Absolute 1.13 0.90 - 3.20 x10(3)/mc L 06/14/2024 5:54 AM [facility] Monocyte % 4.3 % 06/14/2024 5:54 AM [facility] Monocyte Absolute 0.37 0.30 - 0.90 x10(3)/mc L 06/14/2024 5:54 AM [facility] Eos % 0.2 % 06/14/2024 5:54 AM [facility] Eos Absolute <0.04 0.00 - 0.40 x10(3)/mc L 06/14/2024 5:54 AM [facility] Basophil % 0.2 % 06/14/2024 5:54 AM [facility] Baso Absolute <0.04 0.00 - 0.10 x10(3)/mc L 06/14/2024 5:54 AM [facility] Immature Gran % 0.6 % 5:54 AM [facility] Immature Gran Absolute 0.05(H) 0.00 - 0.04 x10(3)/mc L 06/14/2024 5:54 AM [facility] Blood VENOUS BLOOD SPECIMEN / Unknown Venipuncture / Unknown 06/14/2024 5:27 AM EST 06/14/2024 5:45 AM EST Martinez Reynolds MD HEMATOLOGY ORDERABLE S [facility] [place] [address] * Phosphorus (06/14/2024 5:27 AM EST) Pathologist [facility] Phosphorus 2.8 2.5 - 4.5 mg/dL 06/14/2024 8:36 AM [facility] Blood VENOUS BLOOD SPECIMEN / Unknown Venipuncture / Unknown 06/14/2024 5:27 AM EST 06/14/2024 5:45 AM EST Martinez Reynolds MD CHEMISTRY ORDERABLES Performing Organization Address City/[facility]/ZIP Co de Phone Number [facility] [place] [address] * Magnesium (06/14/2024 5:27 AM EST) [facility] Magnesium 0.83 0.69 - 1.07 mMol/L 06/14/2024 6:22 AM [facility] Blood VENOUS BLOOD SPECIMEN / Unknown Venipuncture / Unknown 06/14/2024 5:27 AM EST 06/14/2024 5:45 AM EST Martinez Reynolds MD CHEMISTRY ORDERABLES Performing Organization Address City/[facility]/ZIP Co de Phone Number [facility] [place] [address] * (ABNORMAL) Basic Metabolic Panel (06/14/2024 5:27 AM EST) Pathologist [facility] Glucose 109 65 - 199 mg/dL 06/14/2024 6:22 AM [facility] Comment:Glucose Concentratio n >=200 mg/dL plus symptoms is consistent with Diabetes Mellitus. Blood Urea Nitrogen 14 10 - 20 mg/dL 06/14/2024 6:22 AM EST [facility] Creatinine 0.76(L) 0.80 - 1.50 mg/dL 06/14/2024 6:22 AM [facility] Sodium 124(L) 135 - 145 mMol/L 06/14/2024 6:22 AM [facility] Potassium 4.0 3.5 - 5.0 mMol/L 06/14/2024 6:22 AM EST [facility] Chloride 93(L) 98 - 107 mMol/L 06/14/2024 6:22 AM EST [facility] Carbon Dioxide 19(L) 22 - 31 mMol/L 06/14/2024 6:22 AM EST [facility] Anion Gap 12 5 - 15 mMol/L 06/14/2024 6:22 AM EST [facility] Calcium 7.9(L) 8.5 - 10.5 mg/dL 06/14/2024 6:22 AM EST [facility] Est Glomerular Filtration Rate - Male 122 mL/min/1. 73 m?? 06/14/2024 6:22 AM EST [facility] Comment: This patient's estimated [...] MD CHEMISTRY ORDERABLES [facility] [place] [address] * XR Chest One View (06/14/2024 4:02 AM EST) WORKSTATION ID [id number] DH RAD Anatomical Region Laterality Modality Chest [...] have questions please contact the health animal care giver that requested your imaging first. ? Electronically signed by: Beverley Valencia MD, [facility] ([phone]), at 06/14/2024 4:32 AM Narrative 06/14/2024 4:32 [...] who have questions please contactthe health animal care giver that requested your imaging first. Electronically signed by: Beverley Valencia MD, [facility]([phone]), at 06/14/2024 4:32 AM Mariola Alfred MD IMG DX ORDERABLES * (ABNORMAL) Sodium (06/14/2024 3:32 AM EST) Pathologist [facility] Sodium 122(L) 135 - 145 mMol/L 06/14/2024 4:02 AM [facility] Blood VENOUS BLOOD SPECIMEN / Unknown Venipuncture / Unknown 06/14/2024 3:32 AM EST 06/14/2024 3:37 AM EST Mariola Alfred MD CHEMISTRY ORDERABLES [facility] [place] [address] * (ABNORMAL) Blood Gas, Venous POC (06/14/2024 1:35 AM EST) pH, Venous 7.39 7.32 - 7.42 06/14/2024 1:36 AM [facility] PCO2, Venous 37(L) 38 - 58 mmHg 06/14/2024 1:36 AM [facility] PO2, Venous 27 16 - 65 mmHg 06/14/2024 1:36 AM [facility] Bicarbonate, Venous 21.9(L) 22 - 31 mmol/L 06/14/2024 1:36 AM [facility] Base Excess, Venous -3.1(L) 1.9 - 4.5 mmol/L 06/14/2024 1:36 AM [facility] Hemoglobin, Venous 13.4(L) 13.7 - 16.5 g/dL 06/14/2024 1:36 AM [facility] Oxyhemoglobin, Venous 46.8 % 06/14/2024 1:36 AM [facility] Carboxyhemoglobin , Venous 0.7 % 06/14/2024 1:36 AM [facility] Comment: Nonsmokers: 0.5-1.5% COHB ?? Smokers: Variable ??but usually less than 10% ?? Toxic: 20-30% COHB ?? Lethal: Greater than 60% COHB Methemoglobin, Venous 0.3 <=1.5 % 06/14/2024 1:36 AM [facility] Sodium, Venous 123(L) 135 - 145 mmol/L 06/14/2024 1:36 AM [facility] Potassium, Venous 3.7 3.5 - 5.0 mmol/L 06/14/2024 1:36 AM [facility] Chloride, Venous 92(L) 98 - 107 mmol/L 06/14/2024 1:36 AM [facility] Glucose, Venous 85 65 - 199 mg/dL 06/14/2024 1:36 AM [facility] Comment:Glucose Concentratio n >=200 mg/dL plus symptoms is consistent with Diabetes Mellitus. Lactate, Venous 2.3(H) 0.5 - 2.2 mmol/L 06/14/2024 1:36 AM [facility] Ionized Calcium, Venous 1.10(L) 1.15 - 1.33 mmol/L 06/14/2024 1:36 AM [facility] Blood VENOUS BLOOD SPECIMEN / Unknown 06/14/2024 1:35 AM EST 06/14/2024 1:36 AM EST Mariola Alfred MD POINT OF CARE TEST O RDERABLES [facility] [place] [address] * POC, GLUCOSE (06/14/2024 1:06 AM EST) Glucometer, POC 113 65 - 199 mg/dL 06/14/2024 1:06 AM [facility] Comment:Supplemental ranges: <140 mg/dL before meals <180 mg/dL all other times of the day. Blood CAPILLARY BLOOD / Unknown 06/14/2024 1:06 AM EST 06/14/2024 1:06 AM EST Mariola Alfred MD POINT OF CARE TEST O RDERABLES Performing Organization Address City/[facility]/ZIP Co de Phone Number [facility] [place] [address] * EKG 12 Lead (06/14/2024 1:04 AM EST) Ventricular rate 85 BPM MUSE SYSTEM Atrial Rate 85 BPM MUSE SYSTEM P-R Interval 182 ms MUSE SYSTEM QRS Duration 94 ms MUSE SYSTEM Q-T Interval 388 ms MUSE SYSTEM QTC Calculated (Bezet) 461 ms MUSE SYSTEM Calculated P [place] 35 degrees MUSE SYSTEM Calculated R [place] 57 degrees MUSE SYSTEM Calculated T [place] 48 degrees MUSE SYSTEM INTERPRETATION Normal sinus rhythm Normal ECG When compared with ECG of 01-MAR-2018 09:20, Nonspecific T wave abnormality no longer evident in Inferior leads T wave inversion no longer evident in Lateral leads I personally reviewed the tracing and edited the fellows interpretation Confirmed by fellow Rosalie Obrien ([id number]) on 2024 9:31:30 PM Confirmed by Hannah Marin MD ([id number]) on 06/17/2024 11:43:44 AM MUSE SYSTEM 06/14/2024 1:04 AM EST 06/17/2024 11:43 AM EST Mariola Alfred MD ECG ORDERABLES Performing Organization Address City/[facility]/ZIP Co de Phone Number MUSE SYSTEM * Scan, Peripheral Blood (06/14/2024 1:03 AM EST) RBC Morphology Abnormal 06/14/2024 2:00 AM EST [facility] Platelet Estimate Normal Normal 06/14/2024 2:00 AM EST [facility] Microcyte 1-5 /HPF 06/14/2024 2:00 AM EST [facility] Tear Cell 1-5 /HPF 06/14/2024 2:00 AM EST [facility] Blood VENOUS BLOOD SPECIMEN / Unknown Venipuncture / Unknown 06/14/2024 1:03 AM EST 06/14/2024 1:08 AM EST Mariola Alfred MD HEMATOLOGY ORDERABLE S [facility] [place] [address] * (ABNORMAL) CBC (with Diff) (06/14/2024 1:03 AM EST) White Blood Cell 10.38(H) 4.00 - 9.50 x10(3)/mc L 06/14/2024 2:00 AM [facility] Red Blood Cell 5.05 4.58 - 5.54 x10(6)/mc L 06/14/2024 2:00 AM [facility] Hemoglobin 12.2(L) 13.7 - 16.5 g/dL 06/14/2024 2:00 AM [facility] Hematocrit 35.5(L) 40.5 - 48.5 % 06/14/2024 2:00 AM [facility] Mean Cell Volume 70.3(L) 82.9 - 93.1 fL 06/14/2024 2:00 AM [facility] Mean Cell Hemoglobin 24.2(L) 27.5 - 32.1 pg 06/14/2024 2:00 AM [facility] Mean Cell Hemoglobin Concentration 34.4 32.0 - 35.7 g/dL 06/14/2024 2:00 AM [facility] Platelet 276 145 - 357 x10(3)/mc L 06/14/2024 2:00 AM [facility] Mean Platelet Volume 9.0 7.6 - 12.9 fL 06/14/2024 2:00 AM [facility] RDW Standard Deviation 33.6(L) 36.0 - 45.0 fL 06/14/2024 2:00 AM [facility] RDW coefficient of variation 13.4 11.4 - 13.8 % 06/14/2024 2:00 AM [facility] NRBC% auto 0.0 % 06/14/2024 2:00 AM [facility] NRBC Absolute <0.01 <0.01 x10(3)/mc L 06/14/2024 2:00 AM [facility] Neutrophil % 85.7 % 06/14/2024 2:00 AM [facility] Neutrophil Absolute (ANC) - Automated 8.90(H) 1.70 - 6.10 x10(3)/mc L 06/14/2024 2:00 AM [facility] Lymph % 8.4 % 06/14/2024 2:00 AM [facility] Lymph Absolute 0.87(L) 0.90 - 3.20 x10(3)/mc L 06/14/2024 2:00 AM [facility] Monocyte % 4.4 % 06/14/2024 2:00 AM [facility] Monocyte Absolute 0.46 0.30 - 0.90 x10(3)/mc L 06/14/2024 2:00 AM [facility] Eos % 0.5 % 06/14/2024 2:00 AM [facility] Eos Absolute 0.05 0.00 - 0.40 x10(3)/mc L 06/14/2024 2:00 AM [facility] Basophil % 0.2 % 06/14/2024 2:00 AM [facility] Baso Absolute <0.04 0.00 - 0.10 x10(3)/mc L 06/14/2024 2:00 AM [facility] Immature Gran % 0.8 % 2:00 AM [facility] Immature Gran Absolute 0.08(H) 0.00 - 0.04 x10(3)/mc L 06/14/2024 2:00 AM [facility] Blood VENOUS BLOOD SPECIMEN / Unknown Venipuncture / Unknown 06/14/2024 1:03 AM EST 06/14/2024 1:08 AM EST Martinez Reynolds MD HEMATOLOGY ORDERABLE S Performing Organization Address City/[facility]/ZIP Co de Phone Number [facility] [place] [address] * (ABNORMAL) Phosphorus (06/14/2024 1:03 AM EST) Phosphorus 1.5(L) 2.5 - 4.5 mg/dL 06/14/2024 1:46 AM EST [facility] Blood VENOUS BLOOD SPECIMEN / Unknown Venipuncture / Unknown 06/14/2024 1:03 AM EST 06/14/2024 1:08 AM EST Martinez Reynolds MD CHEMISTRY ORDERABLES Performing Organization Address City/[facility]/ZIP Co de Phone Number [facility] [place] [address] * Magnesium (06/14/2024 1:03 AM EST) Magnesium 0.90 0.69 - 1.07 mMol/L 06/14/2024 1:46 AM EST [facility] Blood VENOUS BLOOD SPECIMEN / Unknown Venipuncture / Unknown 06/14/2024 1:03 AM EST 06/14/2024 1:08 AM EST Martinez Reynolds MD CHEMISTRY ORDERABLES Performing Organization Address City/[facility]/ZIP Co de Phone Number [facility] [place] [address] * (ABNORMAL) Basic Metabolic Panel (06/14/2024 1:03 AM EST) Glucose 95 65 - 199 mg/dL 06/14/2024 1:49 AM EST [facility] Comment:Glucose Concentratio n >=200 mg/dL plus symptoms is consistent with Diabetes Mellitus. Blood Urea Nitrogen 14 10 - 20 mg/dL 06/14/2024 1:49 AM EST [facility] Creatinine 0.80 0.80 - 1.50 mg/dL 06/14/2024 1:49 AM EST [facility] Sodium 123(L) 135 - 145 mMol/L 06/14/2024 1:49 AM EST [facility] Potassium 3.7 3.5 - 5.0 mMol/L 06/14/2024 1:49 AM [facility] Chloride 91(L) 98 - 107 mMol/L 06/14/2024 1:49 AM [facility] Carbon Dioxide 19(L) 22 - 31 mMol/L 06/14/2024 1:49 AM [facility] Anion Gap 13 5 - 15 mMol/L 06/14/2024 1:49 AM [facility] Calcium 8.1(L) 8.5 - 10.5 mg/dL 06/14/2024 1:49 AM [facility] Est Glomerular Filtration Rate - Male 120 mL/min/1. 73 m?? 06/14/2024 1:49 AM [facility] Comment: This patient's estimated [...] MD CHEMISTRY ORDERABLES [facility] [place] [address] * (ABNORMAL) Osmolality (06/14/2024 1:03 AM EST) Osmolality 259(L) 275 - 295 mOsm/kg 06/14/2024 1:40 AM EST [facility] Blood VENOUS BLOOD SPECIMEN / Unknown Venipuncture / Unknown 06/14/2024 1:03 AM EST 06/14/2024 1:08 AM EST Mariola Alfred MD CHEMISTRY ORDERABLES Performing Organization Address City/[facility]/ZIP Co de Phone Number [facility] [place] [address] * T3 Total (06/14/2024 1:03 AM EST) Pathologist [facility] T3 Total 87 80 - 200 ng/dL 06/14/2024 1:46 AM EST [facility] Blood VENOUS BLOOD SPECIMEN / Unknown Venipuncture / Unknown 06/14/2024 1:03 AM EST 06/14/2024 1:08 AM EST Mariola Alfred MD CHEMISTRY ORDERABLES Performing Organization Address [facility] Co de Phone Number [facility] [place] [address] * T4, free (06/14/2024 1:03 AM EST) Pathologist [facility] Free T4 1.37 0.93 - 1.70 ng/dL 06/14/2024 1:46 AM EST [facility] Blood VENOUS BLOOD SPECIMEN / Unknown Venipuncture / Unknown 06/14/2024 1:03 AM EST 06/14/2024 1:08 AM EST Mariola Alfred MD CHEMISTRY ORDERABLES Performing Organization Address City/[facility]/ZIP Co de Phone Number [facility] [place] [address] * Zonisamide level (06/14/2024 1:03 AM EST) Pathologist [facility] Zonisamide Lvl November 17 10 - 40 mcg/mL 06/16/2024 9:22 PM EST [facility]F [facility] [place] Comment: ADDITIONAL INFORMATION This test was developed and its performance characteristics determined by [facility] in a manner consistent with CLIA requirements. This test has not been cleared or approved by the U.S. Food and Drug Administration. Blood VENOUS BLOOD SPECIMEN / Unknown Venipuncture / Unknown 06/14/2024 1:03 AM EST 06/14/2024 1:08 AM EST Narrative REF [facility] - 06/16/2024 9:22 PM EST Test Performed by: [facility] [place] [address] [place] [address] Upkeep Worker: Xavier Velásquez Ph.D.; CLIA# [id number] Mariola Alfred MD LAB SEND OUT ORDERAB LES REF LAB [address] [address], [facility] documented in this encounter Visit Diagnoses Diagnosis [...] restart at 50% of previous rate. Call maid housekeeper if goal not achieved at maximum rate. [...] Oral, 2 TIMES DAILY, First dose on Jo Ann 06/17/24 at 1330, Until Discontinued, DO NOT SPLIT, [...] PRN, Starting on Fri06/14/24 at 0130, Until Jo Ann 06/17/24 at 1229, Agitation, Routine Given 06/16/2024 9:53 [...] mL 50 mL, Intravenous, CONTINUOUS, Starting on Fri06/14/24 at 0430, Until Fri06/14/24 at 0902, Routine New Bag 06/14/2024 4:56 [...] Bell Amezcua RN) 0904 (Given - Provider: eBll Amezcua RN) atorvastatin (Lipitor) tablet 40 mg [...] Priest RN) 0701 (Given - Provider: Erik Dumont RN) 0550 (Given - Provider: Erik M Wanyama, RN) melatonin tablet 10.5 mg 10.5 mg [...] parameters not met)2012 (Given - Provider: Erik Dumont, HEATHER) 0900 (Not Given - Provider: Bell Amezcua [...] PRN, Starting on Fri06/16/24 at 1400, Until 06/21/24 at 1707, Constipation, Give if no BM [...] Amezcua RN) 29 (Given - Provider: Erik Dumont RN)2302 (Given - Provider: Erik Dumont RN) lactulose [...] Nausea, Vomiting 0034 (Given - Provider: Erik Dumotn, HEATHER) ondansetron (Zofran) tablet 4 mg(Linked Group [...] Amezcua, RN) 2013 (Given - Provider: Erik Dumont RN) Linked Groups Order Group 1: hydrocortisone (Cortef) [...] Vomiting documented in this encounter Care Teams Solaris Administrator Relationship Specialty Start Date End Date Jimbo More [place] [address] PCP - General Internal Medicine 06/18/24 documented as of this encounter
--- OUTSIDE RECORDS SUMMARY | 2024-07-22 13:52 | XMS_ITS | Encounter Summary ---
Author Organization [facility] Address [facility] [place] [address] Care Team Providers Care Offset Press Operator Name Role Phone Lc Venegas Primary Care Provider [phone] Encounter Details Date Type Department Care Team (Late st Contact Info) Description 09/11/2018 Telephone [place] [address] Mariola Thomson MD [facility] [place] [address] Social History Tobacco Use Types Packs/Day Years [...] Note: Msg from Jessika Woodall NP at [facility], left msg that pt is doing well, possible aspiration pneumonia. Would like call back on how to proceed with steroid dosing and taper. [phone] and have hospitalist paged. Spoke with hospitalist who reported that pt was d/c Tripled AM dose, doubled afternoon dose for first day. 60mg -->40mg 2 days in the AM, 15mg in the afternoon 2 days 20mg 10mg was not febrile at d/c, back to baseline off acetaminophen Suspect aspiration pna Mariola Thomson MD PGY-4 [facility] Endocrinology Fellow Pager #[phone] documented in this encounter Plan of Treatment Not on file documented as of this encounter Visit Diagnoses Not on filedocumented in this encounter Care Teams Offset Press Operator Relationship Specialty Start Date End Date Lc Venegas PA [address] [place] [address] PCP - General General Internal Medicine 09/03/17 documented as of this encounter
--- OUTSIDE RECORDS SUMMARY | 2024-07-22 13:52 | XMS_ITS | Encounter Summary ---
Author Organization [facility] Address [facility] [place] [address] Care Team Providers Care Mannequin Decorator Name Role Phone Ren Vaz MD Primary Care Provider [phone] Reason for Referral * Consultation (Routine) - Closed Specialty Diagnoses / Procedures Referred By Duyen bui Referred To Contact Maxillofacial Surgery Diagnoses Extraction of tooth needed Marques Hu DMD [address] [place] [address] Joe Nguyen PA [facility] [place] [address] Referral ID Status Reason Start Date Expiration Date V isits Requested Visits Authorized [id number] Closed Consult, Test & Treat 08/17/2021 08/17/2022 1 1 Encounter Details Date Type Department Care Team (Latest Contact Info) Description 08/17/2021 Transcribe Orders [place] [phone] Gabriela Sandra Extraction of tooth needed Social [...] needed documented in this encounter Care Teams Mannequin Decorator Relationship Specialty Start Date End Date Ren Vaz MD PCP - General Family Medicine 06/02/20 06/17/24 documented as of this encounter
--- OUTSIDE RECORDS SUMMARY | 2024-07-22 13:52 | XMS_ITS | Encounter Summary ---
Author Organization [facility] [place] [address] Care Team Providers Care Hard Rock Drill Operator Name Role Phone Ren Vaz MD Primary Care Provider [phone] Encounter Details Date Type Department Care Team (Late st Contact Info) Description 06/13/2024 Ancillary Procedure Radiology Library at [facility] [place] [address] Ren Vaz MD [address] [place] [id number] Social History Tobacco Use Types Packs/Day Years Used Date Smoking Tobacco: Never Smokeless Tobacco: Never Alcohol Use Standard Drinks/Week Comments No 0 (1 standard drink = 0.6 oz pur e alcohol) [facility] Inpatient Questions Answer Date Recorded Prevent Contact [...] CT Head (06/13/2024 12:00 AM EST) Narrative MATEO OSORIO - 06/14/2024 12:43 AM EST This exam is auto-finalizing. It's purpose is for storage only. Ren Vaz MD [facility] FILM LIBRARY ORD ERABLES Performing Organization Address City/State/[facility] Co de Phone Number JO [place], [place] documented in this encounter Visit Diagnoses Not on filedocumented in this encounter Care Teams Hard Rock Drill Operator Relationship Specialty Start Date End Date Ren Vaz MD PCP - General Family Medicine 06/02/20 06/17/24 documented as of this encounter
--- OUTSIDE RECORDS SUMMARY | 2024-07-22 13:52 | XMS_ITS | Encounter Summary ---
Author Organization [facility] [place] [address] Care Team Providers Care Gauge Maker Name Role Phone Lc Venegas Primary Care Provider [phone] Encounter Details Date Type Department Care Team (Late st Contact Info) Description 06/11/2018 Telephone [place] [phone] Mariola Gipson Social History Tobacco Use Types [...] on filedocumented in this encounter Care Teams Gauge Maker Relationship Specialty Start Date End Date Lc Venegas PA [address] [place] [address] PCP - General General Internal Medicine 09/03/17 documented as of this encounter
--- OUTSIDE RECORDS SUMMARY | 2024-07-22 13:52 | XMS_ITS | Encounter Summary ---
Author Organization [facility] Address [facility] [place] [address] Care Team Providers Care Loan Approver Name Role Phone Lc Venegas Primary Care Provider [phone] Encounter Details Date Type Department Care Team (Late st Contact Info) Description 09/09/2018 Tele[place] [address] Mariola Thomson MD [facility] [place] [address] Social History Tobacco Use Types Packs/Day Years [...] Endocrinology Telephone Note: Spoke with ED MD mary Michelle was agitated upon arrival. They gave IM [...] to admit pt. Mariola Thomson MD PGY-4 [facility] Endocrinology Fellow Pager #[phone] documented in this encounter Plan of Treatment Not on file documented as of this encounter Visit Diagnoses Not on filedocumented in this encounter Care Teams Loan Approver Relationship Specialty Start Date End Date Lc Venegas PA [address] [place] [address] PCP - General General Internal Medicine 09/03/17 documented as of this encounter
--- OUTSIDE RECORDS SUMMARY | 2024-07-22 13:52 | XMS_ITS | Encounter Summary ---
Author Organization [facility] Address [facility] [place] [address] Care Team Providers Care Brake Adjuster Name Role Phone Ren Vaz MD Primary Care Provider [phone] Reason for Visit * Consultation (Routine) - Closed Specialty Diagnoses / Procedures Referred By Duyen bui Referred To Contact Maxillofacial Surgery Diagnoses Extraction of tooth needed Marques Hu, DMD [address] [place] [address] Joyce Kelly PA [facility] [address] [place] [address] Referral ID Status Reason Start Date Expiration Date V isits Requested Visits Authorized [id number] Closed Consult, Test & Treat 08/17/2021 08/17/2022 1 1 Encounter Details Date Type Department Care Team (Late st Contact Info) Description 11/01/2021 11:00 AM EDT Office Visit [place] [address] Joyce Kelly PA Dental caries Social History [...] regarding potential dental extractions Authorized by: Marques Hu, SALAS Referral to Maxillofacial Surgery To: JOYCE KELLY [phone] Specialty: My question or request is: evaluate patient for hospitalized dental care for special needs adult ext 03-17 ? Referral Information Reference# [id number] Referral type: Consultation # Visits requested: 1 [...] notations from today's history: ?? Presents with child day care center worker, [place], today ?? The patient's guardian is his sister, Bettina, he reportedly resides at [facility] ?? Per chart review has history of panhypopituitarism, DI, adrenal insufficiency, hypothyroidism, and CVA with residual partial left-sided weakness, cortical blindness, seizure disorder ?? His longtime dentist is Dr. Ray ?? He reportedly developed issues with an abscessed tooth over a year ago. Subsequently had this along with other teeth extracted by another oral surgeon, Dr. Andelin, with general anesthesia ?? Per documentation we were able to receive, extractions included teeth #1, 2, 15, 18, 19, 32 ??? Reports no complaints of pain or difficulty with eating ??? Reportedly the oral surgeon had recommended additional extractions including some of the anterior maxillary teeth. Per the sample case porter this was mainly in the setting of concern that the teeth may be fragile and will require extraction in the future. They would appreciate a second opinion as tothe anterior maxillary teeth ??? It is somewhat unclear as to the dentist's recommendations in regards to these teeth ??? Reportedly they are able to perform oral care at the senior care with the patient on a daily basis [...] caries of #7,9,10,11 in patient residing in senior care setting with complex medical history as described above Recommendations/plan: Clinical scenario was discussed with Dr. Luke. Discussed with the patient and medicare sales representative thatultimately our recommendations would typically be to defer to the dentist's evaluation and recommended treatment plan, and that we are not able to offer restorative measures in our practice nor distinguish whether this would be the most appropriate course. We were able to contact her dentist's office and it does seem they had proposed hindu of teeth #7,9,10,11,31. As above would ultimately [...] plan. Additional questions were addressed and the medicare sales representative appeared satisfied with the above discussion. We appreciate the opportunity to be involved in Mr. Burgos's care. NAKIA Mims-C - Oral-Maxillofacial Surgery 11/02/2021 10:01 AM This note may have incorporated [id number] technology and though reviewed typographical or syntax errors may remain. documented in this encounter Plan of Treatment Not on file documented as of this encounter Visit Diagnoses Diagnosis Dental caries Unspecified dental caries documented in this encounter Care Teams Brake Adjuster Relationship Specialty Start Date End Date Ren Vaz MD PCP - General Family Medicine 06/02/20 06/17/24 documented as of this encounter
--- OUTSIDE RECORDS SUMMARY | 2024-07-22 13:52 | XMS_ITS | Encounter Summary ---
Author Organization [facility] [address] Care Team Providers Care Import Manager Name Role Phone Lc Venegas Primary Care Provider [phone] Encounter Details Date Type Department Care Team (Late st Contact Info) Description 03/22/2019 [facility] [place] [address] Heidi Yi MD Social History Tobacco Use [...] 03/22/2019 10:05 AM EDT Patient seen at [facility] for lethargy, workup negative so far [...] untilhe is stable. We also recommended giving [facility] a call since it seems he was most recently followed by them and there may be information we do not have access to. Case discussed with on-call attending Dr. Morris. Heidi Yi MD PGY-4 [facility] Endocrinology Fellow Pager #[phone] documented in this encounter Plan of Treatment Not on file documented as of this encounter Visit Diagnoses Not on filedocumented in this encounter Care Teams Import Manager Relationship Specialty Start Date End Date Lc Venegas PA [address] [place] [address] PCP - General General Internal Medicine 09/03/17 documented as of this encounter
--- OUTSIDE RECORDS SUMMARY | 2024-07-22 13:52 | XMS_ITS | Encounter Summary ---
[place] [address] Care Team Providers Care Silk Hanger Name Role Phone Lc Venegas Primary Care Provider [phone] Encounter Details Date Type Department Care Team (Latest Contact Info) Description 07/15/2018 12:40 PM EST Laboratory Appointment Lab [address] [place] [address] Hypopituitarism Social History Tobacco Use Types Packs/Day [...] 25 OH 32 30 - 100 ng/mL [facility] Comment: Deficient <10 ng/mL Insufficient 10 to 29 ng/mL Sufficient 30 to 100 ng/mL Potential Intoxication >100 ng/mL According to the US National Osteoporosis Foundation, Vitamin D concentrations >30 ng/mL are sufficient to protect bone health. ??The National Kidney Foundation has similarly stated that patients with Vitamin D concentrations <30ng/mL should be considered to be insufficient or deficient. http://Shoobs/nkf-guidelines http://Shoobs/nejm-VitD The IDS iSYS Vitamin D Immunoassay detects both 25-OH Vitamin D2 and 25-OH Vitamin D3, but only a total Vitamin D concentration is reported. Blood specimen (specimen) 07/15/2018 12:49 PM EST 07/16/2018 7:49 AM EST Narrative Resulting Agency Comment Spec In Lab Christopher Hess MD CHEMISTRY ORDERABLES Performing Organization Address City/[facility] Co de Phone Number [facility] [place] [phone] * (ABNORMAL) Basic Metabolic Panel (non-fasting) (07/15/2018 12:49 PM EST) Glucose 105 65 - 199 mg/dL [facility] Comment:Diabetes: >=200 mg/d L plus symptoms Blood Urea Nitrogen 16 10 - 20 mg/dL [facility] Creatinine 0.83 0.80 - 1.50 mg/dL [facility] Sodium 138 135 - 145 mmol/L [facility] Potassium 3.9 3.5 - 5.0 mmol/L [facility] Comment: Please note: ??Patients with WBC >100,000 may have falsely elevated Potassium levels. ??For accurate Potassium quantification in these patients send serum separator tube (gold top) for subsequent determinations. ??Contact the Clinical Chemistry Laboratory if there are any questions. Chloride 104 98 - 107 mmol/L [facility] Carbon Dioxide 19(L) 22 - 31 mmol/L [facility] Anion Gap 15 5 - 15 mmol/L [facility] Calcium 9.2 8.5 - 10.5 mg/dL [facility] Est Glomerular Filtration Rate 120 >=60 mL/min/1. 73 m?? [facility] Comment: The eGFR was calculated using the CKD-EPI equation. As with all creatinine based estimates of kidney function, eGFR values calculated with the CKD-EPI equation are not accurate in patients with acute kidney failure, extremes of body mass or the acutely ill. http://Shoobs/[facility] OK[facility]AHnkf eGFR 139 >=60 mL/min/1. 73 m?? [facility] Comment: The eGFR was calculated using the CKD-EPI equation. As with all creatinine based estimates of kidney function, eGFR values calculated with the CKD-EPI equation are not accurate in patients with acute kidney failure, extremes of body mass or the acutely ill. http://Shoobs/DHnkf Blood specimen (specimen) 07/15/2018 12:49 PM EST 07/15/2018 12:55 PM EST Narrative Resulting Agency Comment Spec In Lab Christopher Hess MD CHEMISTRY ORDERABLES Performing Organization Address City/[facility]/ZIP Co de Phone Number [facility] [place] [address] * T4, free (07/15/2018 12:49 PM EST) Free T4 1.24 0.93 - 1.70 ng/dL [facility] Blood specimen (specimen) 07/15/2018 12:49 PM EST 07/15/2018 12:55 PM EST Narrative Resulting Agency Comment Spec In Lab Christopher Hess MD CHEMISTRY ORDERABLES Performing Organization Address City/[facility]/ZIP Co de Phone Number [facility] [place] [address] documented in this encounter Visit Diagnoses Diagnosis Hypopituitarism Panhypopituitarism documented in this encounter Care Teams Silk Hanger Relationship Specialty Start Date End Date Lc Venegas PA [address] [place] [address] PCP - General General Internal Medicine 09/03/17 documented as of this encounter
--- OUTSIDE RECORDS SUMMARY | 2024-07-22 13:52 | XMS_ITS | Encounter Summary ---
[place] [address] Care Team Providers Care Mill Hand Plate Mill Name Role Phone Ren Vaz MD Primary Care Provider [phone] Encounter Details Date Type Department Care Team (Late st Contact Info) Description 08/16/2021 Transcribe Orders [place] [address] Gabriela Sandra Social History Tobacco Use Types [...] on filedocumented in this encounter Care Teams Mill Hand Plate Mill Relationship Specialty Start Date End Date Ren Vaz MD PCP - General Family Medicine 06/02/20 06/17/24 documented as of this encounter
--- OUTSIDE RECORDS SUMMARY | 2024-07-22 13:52 | XMS_ITS | Encounter Summary ---
Author Organization [facility] Address [facility] [place] [address] Care Team Providers Care Alcohol Still Operator Name Role Phone Lc Venegas Primary Care Provider [phone] Reason for Visit * Reason Comments Other Patient is here for new evaluation panhypopituitarism. * Consultation (Routine) - Specialty Diagnoses / Procedures Referred By Duyen t Referred To Contact Endocrinology Diagnoses panhypopituitarism Lc Venegas PA [address] [place] [address] [facility] Endocrinology [address] [place] [address] Referral ID Status Reason Start Date Expiration Date V isits Requested Visits Authorized [id number] Consult, Test & Treat Connection [facility] 04/14/2018 04/14/2019 6 6 Encounter Details Date Type Department Care Team (Latest Contact Info) Description 07/15/2018 11:00 AM EST Office Visit [place] [address] Christopher Hess MD [facility] [place] [address] Mariola Thomson MD [facility] [place]OCRINOLOG[place] [address] Hypopituitarism (Primary Dx) Social History [...] this encounter Progress Notes * Mariola Thomson - 07/15/2018 11:00 AM EST Subjective: Patient ID: Miguel Angel Burgos is a 28 y.o. male. HPI Miguel Angel Burgos is a 28 y/o male with a past medical hx significant for panhypopituitarism, hypothyroidism, and CVA with residual partial left-sided weakness, cortical blindness, seizure disorder. Miguel Angel was admitted to [facility] from 09/02/2017 until 03/12/2018 due to a [...] d/c summary: Decreased hydrocortisone from 25/04/10 to 20 per endocrine on 11/16. Follow-up with endocrinology [...] energy for him. Social Hx: Lives in [facility] [phone] Lala Posada Sister is DOPA Meds: Current [...] flexeril TID Neurological: Positive for headaches (per process inspector). Objective:BP 116/79 (BP Location (NBP): Left arm, [...] his fluid restriction. I have asked his process inspector Lala luu me know if his urinary output appears [...] locally Case discussed and seen with staff Insole Bottom Filler, Christopher Hess MD. Of note, pt previously followed with Wilder Dejuan at [facility]- will route this note to him as pt's care providers wish him to follow here since it is closer for them in his new home. Route to [facility]AK[facility] Cifuentes and Dejuan. F/u in 1 year or sooner for any changes whatsoever. Will f/u [facility] over the telephone as it is hard for them to get here. Mariola Thomson MD PGY-4 [facility] Endocrinology Fellow Pager #[phone] * Christopher Hess MD - 07/15/2018 11:00 [...] Free T4 1.24 0.93 - 1.70 ng/dL [facility] Blood specimen (specimen) 07/15/2018 12:49 PM EST 07/15/2018 12:55 PM EST Narrative Resulting Agency Comment Spec In Lab Christopher Hess MD CHEMISTRY ORDERABLES [facility] [place] [address] * (ABNORMAL) Basic Metabolic Panel (non-fasting) (07/15/2018 12:49 PM EST) Pathologist [facility] Glucose 105 65 - 199 mg/dL [facility] Comment:Diabetes: >=200 mg/d L plus symptoms Blood Urea Nitrogen 16 10 - 20 mg/dL [facility] Creatinine 0.83 0.80 - 1.50 mg/dL [facility] Sodium 138 135 - 145 mmol/L [facility] Potassium 3.9 3.5 - 5.0 mmol/L [facility] Comment: Please note: ??Patients with WBC >100,000 may have falsely elevated Potassium levels. ??For accurate Potassium quantification in these patients send serum separator tube (gold top) for subsequent determinations. ??Contact the Clinical Chemistry Laboratory if there are any questions. Chloride 104 98 - 107 mmol/L [facility] Carbon Dioxide 19(L) 22 - 31 mmol/L [facility] Anion Gap 15 5 - 15 mmol/L [facility] Calcium 9.2 8.5 - 10.5 mg/dL [facility] Est Glomerular Filtration Rate 120 >=60 mL/min/1. 73 m?? [facility] Comment: The eGFR was calculated using the CKD-EPI equation. As with all creatinine based estimates of kidney function, eGFR values calculated with the CKD-EPI equation are not accurate in patients with acute kidney failure, extremes of body mass or the acutely ill. http://Activaero/DHnkf eGFR 139 >=60 mL/min/1. 73 m?? [facility] Comment: The eGFR was calculated using the CKD-EPI equation. As with all creatinine based estimates of kidney function, eGFR values calculated with the CKD-EPI equation are not accurate in patients with acute kidney failure, extremes of body mass or the acutely ill. http://[email or web address] Blood specimen (specimen) 07/15/2018 12:49 PM EST 07/15/2018 12:55 PM EST Narrative Resulting Agency Comment Spec In Lab Christopher Hess MD CHEMISTRY ORDERABLES Performing Organization Address [facility]/ZIP Co de Phone Number [facility] [place] [address] * Vitamin D, 25-Hydroxy (07/15/2018 12:49 PM EST) Vitamin D Total 25 OH 32 30 - 100 ng/mL [facility] Comment: Deficient <10 ng/mL Insufficient 10 to 29 ng/mL Sufficient 30 to 100 ng/mL Potential Intoxication >100 ng/mL According to the US National Osteoporosis Foundation, Vitamin D concentrations >30 ng/mL are sufficient to protect bone health. ??The National Kidney Foundation has similarly stated that patients with Vitamin D concentrations <30ng/mL should be considered to be insufficient or deficient. http://Hotelogix.Sokrati/nkf-guidelines http://Activaero/nejm-VitD The IDS iSYS Vitamin D Immunoassay detects both 25-OH Vitamin D2 and 25-OH Vitamin D3, but only a total Vitamin D concentration is reported. Blood specimen (specimen) 07/15/2018 12:49 PM EST 07/16/2018 7:49 AM EST Narrative Resulting Agency Comment Spec In Lab Christopher Hess MD CHEMISTRY ORDERABLES Performing Organization Address City/[facility]/ZIP Co de Phone Number [facility] [place] [address] documented in this encounter Visit Diagnoses Diagnosis Hypopituitarism- Primary Panhypopituitarism documented in this encounter Care Teams Alcohol Still Operator Relationship Specialty Start Date End Date Lc Venegas PA [address] [place] [address] PCP - General General Internal Medicine 09/03/17 documented as of this encounter
--- OUTSIDE RECORDS SUMMARY | 2024-07-22 13:52 | XMS_ITS | Encounter Summary ---
Author Organization [facility] [place] [address] Care Team Providers Care Service Desk Team Lead Name Role Phone Lc Veengas Primary Care Provider [phone] Encounter Details Date Type Department Care Team (Late st Contact Info) Description 09/09/2018 Telephone [place] [id number] Thuy Chu RN Social History Tobacco Use [...] - 09/09/2018 11:06 AM EST Lala left [facility] requesting call back for instruction because pt is really sick today. R/c and lm for Lala to call back. Rcvd call back from Lala. Pt vomited this AM, not peeing consistently, lips blue, inaccurate temp readings (widely variable). She is taking pt to [facility] ED in [facility] (this call taking place at 11:14) and Lala would like Dr Thomson to call the ED there to consult and advise. Endocrinology Telephone Note: Called [facility] ED MD Spoke with MD there, warned them about his adrenal insufficiency and advised to stress dose if there is any concern whatsoever for hypOtension. If sodium derangements are present, will need to be admitted possibly for DDAVP adjustments. Provided my pager #. Mariola Thomson MD PGY-4 [facility] [place]ocrinology Fellow Pager #[phone] documented in this encounter Plan of Treatment Not on file documented as of this encounter Visit Diagnoses Not on filedocumented in this encounter Care Teams Service Desk Team Lead Relationship Specialty Start Date End Date Lc Venegas PA [address] [place] [address] PCP - General General Internal Medicine 09/03/17 documented as of this encounter
--- OUTSIDE RECORDS SUMMARY | 2024-07-22 13:52 | XMS_ITS | Encounter Summary ---
[facility] Organization [facility] [place] [address] Care Team Providers Care Dumpster Operator Name Role Phone Ren Vaz MD Primary Care Provider [phone] Reason for Visit * Auth/Cert (Routine) Specialty Diagnoses / Procedures Referred By Duyen bui Referred To Contact Diagnoses Hyponatremia hyponatremia Procedures ER Mariola Crisostomo MD [facility] [place] [address] [facility] Referral ID Status Reason Start Date Expiration Date Visits Re quested Visits Authorized [id number] 1 1 Encounter Details Date Type Department Care Team (Late st Contact Info) Description 2024 3:10 PM EST - 2024 4:30 [place] [id number] RESOURCE, ANESTHESIA-GEORGIE None MRI WITH ANESTHESIA (WRVU *) Social History Tobacco Use Types Packs/Day Years Used Date Smoking Tobacco: Never Smokeless Tobacco: Never Alcohol Use Standard Drinks/Week Comments No 0 (1 standard drink = 0.6 oz pur e alcohol) [facility] Utilities Answer Date Recorded [...] any time in the past 12 m [facility], were you homeless or living in [...] needed. Per discussion with Madeleine from the retirement where he lives 06/17. She notes his [...] has been significant for: Hyponatremia: Presented to [facility] following witnessed tonic-clonic seizure at care home, found to have sodium of 122. On [...] in September 2023. On second read of [facility] scan described as hypoattenuating, likely cystic [...] Seizures: 2 min tonic-clonic seizure witnessed at retirement, 30 sec seziure at [facility] ED (2mg ativangiven). None since arrival [...] 97 % No results for input(s): PHART, LEX6TRY, PO2ART, NNM9XKK in the last 168 hours. I/O: Date 06/21/24 0700 - 06/22/24 0659 Shift 0016-5233 0435-2324 3219-6232 24 Hour Total INTAKE P.O. 354 354 Shift Total(mL/kg) 354(3.6) 354(3.6) OUTPUT Urine(mL/kg/hr) 825 825 Shift Total(mL/kg) 825(8.4) 825(8.4) Weight (kg) 98.8 98.8 98.8 98.8 Labs: Recent Labs 06/21/24 0050 06/20/243 06/19/24 0410 NA 141 137 135 K [...] Procedure Component Value Units Date/Time Blood culture [[id number]] (Abnormal) Collected: 06/18/24 190 Lab Status: Preliminary result Specimen: Blood, Venous [...] a previously preliminary verified report. Blood culture [[id number]] Collected: 06/18/241899 Lab Status: Preliminary result Specimen: [...] Center 07/20/2024 1:30 PM Eron Barriga MD [id number] * Attachments The following attachments cannot be sent through Care Everywhere. * Hyponatremia (Kiswahili) documented in this encounter Medications at Time [...] needed for incontinence 90 each 3 03/11/2018 mupirocin (Bactroban) 2 % Ointment 09/10/2021 [...] spent >30 minutes (Day of Discharge Code 28563) involved in the final examination of the patient, discussion of the hospital stay, instructions for continuing care to all relevant caregivers, and preparation of discharge records, prescriptions and referral forms. Plans Discharge to retirement Follow-up scheduled with PCP and neurosurge Please [...] appropriate/able. Sunitha Sanderson PT, DPT, NCS Pager: [phone] Physical Therapy Inpatient Rehabilitation Department * Martinez [...] and not moving extremities Labs: Recent Labs 06/20/245206/19/2440906/18/24 012 WBC 5.59 6.86 9.78* HGB 13.5* 13.8 12.4* PLATELET 303 297 262 Recent Labs 06/20/24 0053 06/19/24 0410 06/18/24 1222 06/18/24 0126 NA 137 135 135 138 K 3.7 3.8 -- 4.4 CL 102 97* -- 102 CO2 20* 25 -- 25 BUN 10 19 -- 15 CREATININE 0.75* 0.86 -- 1.05 Recent Labs 06/20/245206/19/2440906/18/24 012 CALCIUM 9.1 9.4 9.3 MAGNESIUM 0.76 0.74 0.84 PHOS 3.7 5.0* 5.7* Recent Labs 06/20/245206/19/2440906/18/24 012 AST 65* 57* 52* ALT 80* 76* 61* ALKPHOS 128 133* 118 BILITOT <0.2 0.2 0.3 BILIDIR <0.2 <0.2 <0.2 No results for input(s): TROPONINT, CK in the last 168 hours. No results for input(s): PHART, XFO2LQK, PO2ART, LQY7TTP in the last 168 hours. Microbiology: None [...] needed. Per discussion with Madeleine from the retirement where he lives 06/17. She notes his [...] Code Status: FULL - Dispo: Back to retirement when Martinez B MD [facility] medicine Service: 2900 06/20/2024 * Martinez [...] 168 hours. No results for input(s): PHART, ECW2DAF, PO2ART, YLG3DWE in the last 168 hours. Microbiology: None [...] needed. Per discussion with Madeleine from the retirement where he lives 06/17. She notes his [...] Code Status: FULL - Dispo: Back to retirement when MR Martinez Reynolds MD Hospital medicine Service: 2900 06/19/2024 * Shola Morris MD - 06/19/2024 10:15 AM EST Images from the original note were not included. Endocrinology Follow up Note Name: Abram Burgos Date: 06/19/24 Room: [address] [place] [address] Reason for Consult: panhypopituitarism HPI Abram Burgos [...] access to additional DDAVP dosing at his retirement after speaking with Jennifer from the retirement. Possibility of him having access to additional water/fluid intake over the last few weeks. Bettina said that this is possible given there is often health care recruiter turnover and not everyone is up to date on what is recommended. He is on a 3.5 L restriction per day at the retirement. Patient was continued on home dose of [...] - will need follow up with his Level Vial Inspector And Tester, Dr. Zaidi or Dr. Day Littlejohn at discharge Endocrinology will sign off at this time but are available for any questions or concerns during hisremaining hospital stay. Thank you for allowing us to participate in the care of this patient. Discussed with Dr. Morris. Crista Gill MD. 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 Meeting his physical comfort needs such as pain physical discomfort such as itching will also be important. 06/18/2024-Abram has been agitated overnight and has been un directable at times. Per collateral from his retirement, this is a baseline that has been going on for many months. On learning of his retirement regimen, not reflected in surescripts, we will [...] - start 600mg BID, titrate to MDD 8366-9168 in divided doses - monitor for increased respiratory secretions -discontinue depakote Patient on IEA Status? IEA: NO, patient is not an on IEA. Awaiting voluntary psychiatric placement but safety concerns exist if patient decides to leave and will require urgent psychiatric assessmentprior to discharge or leaving AMA. Recommendations were communicated to primary hat steamer Dr. Johnson. H Samson Jdud MD 06/19/2024 Coding Determination 1. Problems/Diagnosis (check [...] Minimal/Low [] Low [] Minimal/Low [] Low 88520 [] Moderate [] Moderate [] Moderate [] Moderate 20977 [] High [] High [] High [] High 73077 Final Coding Determination: Moderate * Pamela Johnson [...] 168 hours. No results for input(s): PHART, DVD9AJB, PO2ART, IRB0VQS in the last 168 hours. Microbiology: None [...] needed. Per discussion with Madeleine from the retirement where he lives 06/17. She notes his [...] Code Status: FULL - Dispo: Back to retirement when MR GonzalezPamela E DO [facility] medicine Service: 2900 06/18/2024 * Jaja Chin [...] with herself and her son bring Abram llanos. Bettina would greatly appreciate calls and updates at: [phone] * Ximena Turner RN - 06/18/2024 1:42 PM EST Office of Case Management: CM updated in IDR rounds that patient is not medically ready but will return to retirement when MR. [facility] [address] [facility] [address] [place] [address] Spoke with Jennifer Woods RN. Updated not anticipated discharge until next week. Will submit referralto RS to update facility with clinicals. Confirmed [facility] provides transport. * Sunitha Sanderson PT - 06/18/2024 10:49 AM EST Physical Therapy Contact Note 06/18/24 8079 Evaluation & Treatment Document Type contact Total Minutes, Physical Therapy 0 Comment, Session Not Performed Checked in with nursing, pt awaiting stat HCT for somnolence. PT will defer and follow up as appropriate/able. Sunitha Sanderson PT, DPT, NCS Pager: [phone] Physical Therapy Inpatient Rehabilitation Department * Zoë [...] mg at 22:55. His medications from his retirement were shared by their staff, with his home medicationregimen being 200 XL seroquel nightly and 100 mg BID with 100 mg PRN daily and hetlioz 20 mg qHS and melatonin nightly. Per Dr. Benítez in conversation with Madeleine from his retirement, Abram goes from 0-100 very quickly and will throw things and become agitated in his home setting, and that this has been going on for many months now. On interview this morning: Abram is lying in bed under the covers having his vitals checked. He denies pain, thoughts of hurting himself,f and denies needing anything at this time. 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 Meeting his physical comfort needs such as pain physical discomfort such as itching will also be important. 06/18/2024-Abram has been agitated overnight and has been un directable at times. Per collateral from his retirement, this is a baseline that has been going on for many months. On learning of his retirement regimen, not reflected in surescripts, we will [...] leaving AMA. Recommendations were communicated to primary hat steamer Dr. Johnson. Jaja Chin MD 06/18/2024 Coding [...] Minimal/Low [] Low [] Minimal/Low [] Low 09644 [] Moderate [] Moderate [] Moderate [] Moderate 98844 [] High [] High [] High [] High 48022 Final Coding Determination: Moderate Associated attestation - [...] it as a standing medication at his retirement). Given his mild increase in LFTs we [...] Brittny Hanna MD Department of Psychiatry Pager #[phone] * Pamela Johnson, DO - 06/17/2024 5:30 [...] 168 hours. No results for input(s): PHART, KPU4SDG, PO2ART, UQY7TWV in the last 168 hours. Microbiology: None [...] 3L daily. Spoke to Madeleine from the [facility] where he lives. She notes his [...] Code Status: FULL - Dispo: Back to retirement when Pamela Emerald DO [facility] medicine Service: 2900 06/17/2024 * Roya iKngsley OT - 06/17/2024 9:42 AM EST Occupational [...] Surgical History: Procedure Laterality Date PRO OPEN CONSUMER EDUCATOR FIX ACETABULAR FX Left 09/04/2017 @OPEN TREATMENT, ACETABULAR FX (WRVU 25.41) performed by Amy Lance MD at [facility] OR Social History: Patient lives in a retirement. Home Setup: accessible DME: none Baseline ADL/Mobility: [...] from EOB: min assist x 2 with DIRECTOR DIETETICS DEPARTMENT Pt able to side step to L side ~4-5 steps with min assist x 2 using DIRECTOR DIETETICS DEPARTMENT, cues provided for step initiation and sequencing Stand to sit x 2: min assist x 2 with DIRECTOR DIETETICS DEPARTMENT Sit to supine: mod assist x 2 [...] minimal side steps to L side with DIRECTOR DIETETICS DEPARTMENT. Unsure of pt's most recent functional status but anticipate pt will be able to return to his retirement pending level of assistance they can provide. Pt will benefitfrom ongoing therapeutic interventions to achieve pt's and therapy goals. Anticipated Discharge Disposition (OT): other (see comments) (return to retirement) Equipment Recommendations: Equipment Needs Upon Discharge (OT): [...] Minutes, Occupational Therapy: 28 (09:42-10:10 SCx2) Pager: [phone] Roya Kingsley OTR/L Occupational Therapy Rehabilitation Department * Tmoás Priest RN - 06/16/2024 8:58 PM EST [...] EEG CONTINUOUS MONITORING INPATIENT 2024 PRO OPEN CONSUMER EDUCATOR FIX ACETABULAR FX Left 09/04/2017 @OPEN TREATMENT, ACETABULAR FX (WRVU 25.41) performed by Amy Lance MD at [facility] OR Social History: Home setup: Pt resides in an accessible retirement in [facility] Baseline Mobility/Prior level of function: Had [...] to swing bed rehabilitation vs return to retirement when medically stable, pending functional progress while in the hospital and level of care available at retirement. Pt will benefit from ongoing physical therapy to address the above impairments and facilitate return to PLOF. Discharge Recommendations: Based on the current findings, Anticipated Discharge Disposition (PT): swing bed rehabilitation facility, adult foster care/retirement when medically ready for hospital discharge. Plan: [...] (admitted for seizures; complex PMH; lives in retirement) Examination of body system impairments, functional limitations and behaviors, and/or participation restrictions. Addressing 1-2 elements Addressing 3 + elements Addressing 4 + elements X Clinical presentation: See assessment above. Stable/Uncomplicated Evolving/Fluctuating Symptoms Unstable/Unpredictable X Clinical decision making of moderate complexity based on pt's functional performance as outlined inthis evaluation. Time IN / OUT: 9346-5439 Total Minutes, Physical Therapy: 30 (eval). Ludivina Stover PT DPT 06/16/2024 Pager: [phone] Physical Therapy Inpatient Rehabilitation Department * Christopher [...] seizures in the setting of hyponatremia and METEOROLOGY TEACHER structural abnormalities. This most likely provoked by new hyponatremia rather than chronic structural brain disease. Our working theory is hyponatremia provoked by issues with fluid restriction at his retirement, and it is so far improving at [...] minimumof two midnights or is on the [facility] inpatient only procedure list (status C) due to: monitoring of fluid status given an inability to regulate fluid balance and the need for administration or restriction of fluids and breakthrough seizures * Lauren Ruby MD - 06/16/2024 6:54 AM EST [facility] NEUROSURGERY PROGRESS NOTE ID: Abram Burgos [...] ??C (96.8 ??F)] Heart Rate: [56-91] Resp: [11] BP: (91-123)/(56-80) SpO2: [96 %-100 %] Heart [...] intact x 4 LABS: Recent Labs 06/16/24 00006/15/24 0006 06/14/24 0527 WBC 7.71 6.30 8.68 [...] admit with jazmín of 122 while at [facility] thus far corrected to 131). Therefore no acute neurosurgical intervention warranted. We will follow up with the patient and hisfamily/legal guardian outpatient to discuss management options. We are signing off for now, rest ofcare per primary, but remain available at pager [phone] should further questions/concerns arise. Plan: -No acute neurosurgical intervention warranted -We are signing off now, but will follow up outpatient with patient/family to discuss management options -Rest of care per primary including frequency of neuro checks For questions please call NSGY pager [phone] Lauren Ruby MD 06/16/2024 7:22 AM Clinical Documentation Improvement: Active Hospital Problems Diagnosis Hyponatremia Resolved Hospital Problems No resolved problems to display. * Maxine Silverio, PT - 2024 11:20 AM EST Physical Therapy Note 06/15/24 4010 Evaluation & Treatment Document Type contact Total [...] with him tomorrow. Maxine Silverio, PT Pager [phone] * Christopher Stanley MD - 2024 8:13 [...] seizures in the setting of hyponatremia and METEOROLOGY TEACHER structural abnormalities. This most likely provoked by new hyponatremia rather than chronic structural brain disease, but as yet uncertain. Our working theory is hyponatremia provoked by issues with fluid restriction at his retirement, and it is so far improving at [...] O2 Device RA Maxine Silverio, PT Pager [phone] * Wilder Davis - 06/14/2024 11:19 AM [...] adjusted based on our knowledge. Was at retirement when he had ~2 minute tonic clonic seizure. Presented to [facility] where he was found to be hyponatremic. Given hypertonic saline and ativan and transferred to [facility]. Physical Exam Last value Range last 24 [...] seizures in the setting of hyponatremia and METEOROLOGY TEACHER structural abnormalities. His hyponatremia is likely mixed: [...] minimumof two midnights or is on the [facility] inpatient only procedure list (status C) due [...] a 2 minute tonic-clonic seizure at his retirement with subsequent 30 second seizure at [facility] ED which was treated with 2mg ativan. He was found to be hypon atremic to 121 (from apparent baseline in 140s). At [facility] he received 150cc 3% NaCl and 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 He wastransferred to [facility] where sodium of 122 was treated with 50cc 3%NaCl and Neutra-Phos. No evidence of seizure since arrival. Neurology, neurosurgery, and endocrine teams were consulted. Hospital/ICU course has been significant for: #Hyponatremia #Seizure Activity (prior to arrival at [facility]) #possible enlarging lesion in R middle cranial fossa 24-hour events: -Transferred to [facility] -Na treated with 3% (once at OSH, [...] Line): -- No results for input(s): PHART, OIV6CID, PO2ART, TJE8WHP in the last 168 hours. Intake/Output Summary [...] clear culprit meds on his list.At his retirement he is maintained on a 3.5L fluid [...] Lizeth Calderon APRN June 14, 2024 Pager #[phone] Critical Care Green Team documented in this encounter H&P Notes * Tim Yuen MD - 06/16/2024 11:50 AM EST Medicine Admission H&P Patient Name: ABRAM BUGROS Date of : 1990 Age: 34 y.o. [...] transferred from [facility] from a retirement ([facility]) for a seizure. He had been in his usual state of health, though notably he did have COVID within the past month. He reported that he had not been missing any of his medications, however due to some recent behavioral troubles and problems with sleeping, some of his medications have been altered recently. Hospital course notable for: Hyponatremia: Presented to [facility] following witnessed tonic-clonic seizure at care home, found to have sodium of 122. On [...] in September 2023. On second read of [facility] scan described as hypoattenuating, likely cystic [...] Seizures: 2 min tonic-clonic seizure witnessed at retirement, 30 sec seziure at [facility] ED (2mg ativangiven). None since arrival [...] EEG CONTINUOUS MONITORING INPATIENT 2024 PRO OPEN CONSUMER EDUCATOR FIX ACETABULAR FX Left 09/04/2017 @OPEN TREATMENT, ACETABULAR FX (WRVU 25.41) performed by Amy Lance MD at [facility] OR Social History: Social History [...] file Social History Narrative Lives at the [facility], moved in 11/07/2014. Social Determinants of Health [...] shifts: In: 1778 [P.O.:1170; I.V.:608] Out: 1874 [Urine:1874] Gen: Alert [...] Lymph: no cervical/supraclavicular/axillary lympha LABS: Recent Labs 06/16/24806/15/24 00006/14/24 0527 WBC 7.71 6.30 8.68 HGB 11.7* 11.9* 12.5* HCT 33.8* 34.2* 35.8* PLATELET 241 269 284 Recent Labs 06/16/24 0600 06/16/24 00006/15/24 1758 06/15/24 0554 06/15/24 0006 06/14/24 0806 [...] in this interval not displayed. Recent Labs 06/16/24806/15/24 0006 06/14/24 0527 CALCIUM 8.3* 8.1* 7.9* [...] 06/14/2024 4:02 AM) Result Value WORKSTATION ID [id number] Narrative EXAMINATION: XR CHEST ONE VIEW CLINICAL [...] who have questions please contact the health furnace caretaker that requested your imaging first. Electronically signed by: Beverley Valencia MD, [facility] ([phone]), at 06/14/2024 4:32 AM Request For 2nd Read CT Head (Exam End: 06/14/2024 9:46 AM) Result Value WORKSTATION ID [id number] Narrative EXAMINATION: REQUEST FOR 2ND READ CT HEAD CLINICAL HISTORY: New seizure with known mass, ?enlargening. Presenting with seizure; Sending Institution [facility]; Date of exam [id number]; I believe a reinterpretation of this exam may alter care of Patient. Yes TECHNIQUE: Reinterpretation of noncontrast CT head performed at [facility] 06/13/2024 at 2143 hours COMPARISON: Noncontrast [...] who have questions please contact the health furnace caretaker that requested your imaging first. Brain wwo Contrast (Generic) (Exam End: 2024 4:20 PM) Result Value WORKSTATION ID [id number] Narrative EXAMINATION: MRI BRAIN WWO CONTRAST (GENERIC) [...] clip with its blades near the right INTENSIVE CARE NURSE. Impression Homogeneously enhancing 3.5 cm mass along [...] who have questions please contact the health furnace caretaker that requested your imaging first. SSMENT and PLAN: Abram Burgos is a 34 [...] Tim Yuen MD Internal Medicine PGY-2 Pager: [phone] 06/16/24 Associated attestation - Channing Ballesteros MD [...] with seizures. HPI: Per report presented to [facility] from a retirement ([facility]) for seizure. He has been in his usual state of health although did have covid within the past month. He has been taking his medications as prescribed although due to behavioral troubles and problems sleeping some of his medications have been altered recently. This afternoon at his retirement he had a two minute whitnesses tonic [...] encephalomalacia Interventions that the pt received at [facility] included 150cc 3% NaCl, 100mg of hydrocortisone and a dose (unknown amount) of desmopressin. [facility] was contacted for transfer. Neuro critical care [...] Surgical History: Procedure Laterality Date PRO OPEN CONSUMER EDUCATOR FIX ACETABULAR FX Left 09/04/2017 @OPEN TREATMENT, ACETABULAR FX (WRVU 25.41) performed by Amy Lance MD at [facility] No family history on file. Social History: Lives in a retirement. Ventilator Settings: Room air. Physical Exam: General: [...] PLATELET 276 Last 3 Lytes Recent Labs 06/14/24102 NA 123* K 3.7 CL 91* CO2 19* BUN 14 CREATININE 0.80 Last Ca, Mg, Phos Recent Labs 06/14/24102 CALCIUM 8.1* PHOS 1.5* MAGNESIUM 0.90 EKG: [...] 127 from the time of arrival to [facility] Should attempt 6mMol/L increase in Na [...] NAKIA Blair June 14, 2024 Critical Care [place] Team (pager [phone]) Dr. Alfred is the attending of record for this admission documented in this encounter Procedure Notes * Joey Moura MD - 06/18/2024 1:58 PM EST [facility] Department of Neurology Inpatient Routine EEG Report Name of the Patient: Abram Burgos Date of : 1990 Date of Service: 06/18/2024 Referring physician: Rachel Johnson DO [place] Resident/Fellow: Joey Moura MD [place] Attending: Rosa Quezada MD Routine EEG start [...] channel digitized electroencephalogram was performed in the [facility] Clinical Neurophysiology Laboratory. The 10/20 international system of electrode placement was used and bipolar and referential electrode montages were recorded. In addition to EEG the patient was monitored for EKGand lateral/vertical eye movements. Video was recorded during the session. PATIENT FINANCIAL SERVICES MANAGER'S REPORT: Performed by: Ingrid Shi Patient [...] agree with the report. Rosa Quezada MD [facility] [place] * Camron Gee MD - 2024 5:19 PM ESTProcedure(s): EEG CONTINUOUS MONITORING INPATIENT [facility] Department of Neurology Inpatient Continuous Video EEG Tail Report Name of the Patient: Abram Burgos Date of : 1990 Patient Location: [facility] Date of Service: 2024 Referring physician: Marline [...] EKG. Video was recorded during the session. PATIENT FINANCIAL SERVICES MANAGER'S REPORT: Performed by: At the onset [...] seen during this epoch. Rashard Navarrete MD TRIM DIE MAKER Fellow, PGY-5 2024 EPILEPSY ATTENDING ADDENDUM - I reviewed the EEG with the TRIM DIE MAKER/Epilepsy fellow, and I agree with the interpretation as documented. Camron Gee MD, PhD Professor of Neurology [facility] Clinical Neurophysiology Laboratory [facility] * Rashard Navarrete MD - 06/14/2024 3:33 PM ESTAssociated Order(s): EEG CONTINUOUS MONITORING INPATIENT Preliminary continuous video EEG Note: 06/14/2024 - 3:33 PM Start Time: 14:49 Review of the first 45 minutes of this cEEG recording shows generalized slowing with superimposed rhemispheric slowing. No seizures seen during this time. Formal report will follow in the AM. Rashard Navarrete MD 06/14/2024 * Rashard Navarrete MD - 06/14/2024 3:03 PM EST [facility] Department of Neurology Inpatient Continuous Video EEG Report Name of the Patient: Abram Burgos Date of : 1990 Patient Location: [facility] Date of Service: 06/14/2024 Referring physician: Marline [...] EKG. Video was recorded during the session. PATIENT FINANCIAL SERVICES MANAGER'S REPORT: Performed by: At the onset [...] seen during this epoch. Rashard Navarrete MD TRIM DIE MAKER Fellow, PGY-5 06/14/2024 Associated attestation - Camron Gee MD - 2024 1:03 PM EST EPILEPSY ATTENDING ADDENDUM - I reviewed the EEG with the TRIM DIE MAKER/Epilepsy fellow, and I agree with the interpretation as documented. Given the lack of evidence for underlying epileptic seizures from this recording of ~24 hours, we'd recommend considering discontinuing the CEEG study. We are available to discuss this matter with the Neurology consultation and inpatient bravo team. Camron Gee MD, PhD Professor of Neurology [facility] Clinical Neurophysiology Laboratory [facility] documented in this encounter Miscellaneous Notes * Plan of Care - Bell Amezcua RN - 06/21/2024 3:04 PM EST Abram Burgos discharged to long-term by care facility's vehicle with staff from retirement. All belongings sent with patient. ALLISON removed, [...] Patient is medically ready for discharge to [address] [place], [place] [address] . Materials And Processes Manager: Kemi Noriega at [facility] will be picking him up. I also spoke with Bettina Burgoshis Guardian to give her updates. Needs for Transition of Care: Plan for discharge is: Assisted Facility / Swing Outpatient Agency/Support Group Needs: care home Agency Referrals & Follow-up Care: Transportation: Materials And Processes Manager: Kemi Noriega at [facility] will be picking him up. I also spoke with Bettina Aubrey his Guardian to give her updates Wheelchair van/Ambulance? No Functional status prior to admission: Assistive Equipment and Assistive Person Home Environment: Others in the home: other (see comments) (Lives in a retirement.). Current LivingArrangements: retirement. Accessibility Concerns:Easy access to his surroundings. Fully [...] plan was formulated with input from patient, Materials And Processes Manager: Kemi Cronin will be picking him up. I also spoke with Bettina Burgos Guardian to give her updates and team Dr. Reynolds. All are in agreement with plan. Sudarshan Marie RN BSN CCM * Plan of Care - Erik [...] better mood today, less agitation. Visitor from retirement. Downgraded to med surg. PLAN MOVING FORWARD: [...] been altered recently. This afternoon at his retirement he had a two minutewitnessed tonic clonic [...] nightly to twice daily dosing at his retirement, which she had not been on before. 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 Sister reports that he has had low sodium in the past, she believes in the 120s or lower, but has not triggered seizures in the past. Patient has previously been seen at [facility] in 2014. His deficits at that time included left hemiparesis, cortical blindness, urine incontinence, dysarthria and gait disorder. 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 According to [facility] documentation, he had a spell at his retirement that was concerning for seizure one month prior to his visit. BG at the time was in the 40s and he was started on Keppra in addition to Zonegran. [facility] neurologist planned for discontinuation of Keppra at [...] 200 mg 200 mg Oral Nightly Pamela Johnson E, DO QUEtiapine (Seroquel) tablet 100 mg 100 mg Oral BID Pamela Johnson E, DO QUEtiapine (Seroquel) tablet 50 mg 50 mg Oral Daily PRN Pamela Johnson E, DO melatonin tablet 10.5 mg 10.5 mg Oral Nightly Pamela Johnson E, DO haloperidoL lactate (Haldol) (5 mg/mL) [...] Nightly Tim Yuen MD 0.15 mg at 06/17/248 heparin (porcine) (5,000 units/1 mL) subcutaneous injection [...] (WRVU *) performed by JERSEY ANESTHESIA-GEORGIE at [facility] [place] PRO OPEN CONSUMER EDUCATOR FIX ACETABULAR FX Left 09/04/2017 @OPEN TREATMENT, ACETABULAR FX (WRVU 25.41) performed by Amy Lance MD at [facility] MAIN OR Allergies: Allergies Allergen Reactions [...] gaze No facial asymmetry Able to weakly brim stiffener BL hands 2/5, wiggles BL toes to [...] 06/14/2024 4:02 AM) Result Value WORKSTATION ID [id number] Impression Low lung volumes with crowding of bronchovascular markings without radiographically evident acute cardiopulmonary process. Thank you for letting us participate in the care of this patient. If you are a health care provider and have any questions regarding this report, please contact the number below. For patients who have questions please contact the health furnace caretaker that requested your imaging first. Electronically signed by: Beverley Valencia MD, [facility] ([phone]), at 06/14/2024 4:32 AM Request For 2nd Read CT Head (Exam End: 06/14/2024 9:46 AM) Result Value WORKSTATION ID [id number] Impression Hypoattenuating, likely cystic mass appears to [...] who have questions please contact the health furnace caretaker that requested your imaging first. Brain wwo Contrast (Generic) (Exam End: 2024 4:20 PM) Result Value WORKSTATION ID [id number] Impression Homogeneously enhancing 3.5 cm mass along [...] who have questions please contact the health furnace caretaker that requested your imaging first. Assessment: Abram [...] Holland MD Neurology, PGY-3 Consult Neurology Service #[id number] 06/18/2024 Associated attestation - Colten Wilson MD [...] Qtc within normal limits. Staff member from retirement came to visit. Scheduled medications adjusted. PLAN [...] Appropriate) * Consult Note - Americo Flores Torito - 06/17/2024 7:23 AM EST Neurology Inpatient Consult Note - 06/17/2024 Admit date: 06/14/2024 Attending: Pamela Johnson, ID: Abram Burgos is a 34 y.o. [...] normocardic, normal BP, normal sats I/O: 06/16 701 - 06/17 700 In: 1170 [P.O.:1160; I.V.:10] Out: 650 [Urine:650] [...] focal atrophy Arm flexion 5/5 b/l Hand brim stiffener 5/5 b/l Able to wiggle toes Reflexes: [...] Neurology to sign off Americo Flores, MS4 [facility] [employer] * Care Management - [...] Guardian Name: Bettina Burgos-sister Guardian Contact Information: [phone] Financial Decision Maker: Guardian Guardianship paperwork on file: 1 Guardian Name: see above Guardian Contact Information: see above Functional status prior to admission: Assistive Equipment and Assistive Person Home Environment: Others in the home: other (see comments) (Lives in a retirement.). Current LivingArrangements: retirement. Accessibility Concerns: Easy access to his surroundings. [...] Recommendation: swing bed rehabilitation facility, adult foster care/retirement with to be determined Last Occupational Therapy Recommendation: adult foster care/retirement (pending on progress) with to be determined Plan for discharge is: Assisted Facility / Swing Transition Plan for After Rehab: [facility] Human [facility] Outpatient Agency/Support Group Needs: care home Agency Choices: [facility] Agency Referrals: Current referrals placed to: N/A Transportation: Barriers to discharge: Global: Discharge planning Global Comment: Coordination of returning to retirement Items to Consider for Discharge: Pt's sister and guardian Bettina Burgos has given permission for the following people from his [facility] to receive updates: Lives in [facility]) -Kemi Noriega -care home telehealth case manager -Ladonna Tate -Jennifer Woods -care home RN CM Interventions today: CM is notified [...] hx patient anticipated to go return to [facility]) with possible VNA services on top what is already offered. The patient's sister and guardian Bettina Burgos as assisting with dispo coordination. CM will continue to monitor progress, follow for continuity of care, and assist with discharge planning while patient is inpatient status on current unit. Investigate address and contact information for [facility]) and place referral so they have updated information to review to assist in dispo Review team recommendations and place referrals for VNA if medical status changes after treatments/interventions. Monitor and update referrals Anticipated Date of Discharge: 06/18/2024 Raudel Tate RN Case Retail Stocker of Care Management * Consult Note - [...] been altered recently. This afternoon at his retirement he had a two minutewitnessed tonic clonic [...] nightly to twice daily dosing at his retirement, which she had not been on before. 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 Sister reports that he has had low sodium in the past, she believes in the 120s or lower, but has not triggered seizures in the past. Patient has previously been seen at [facility] in 2014. His deficits at that time included left hemiparesis, cortical blindness, urine incontinence, dysarthria and gait disorder. 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 According to [facility] documentation, he had a spell at his retirement that was concerning for seizure one month prior to his visit. BG at the time was in the 40s and he was started on Keppra in addition to Zonegran. [facility] neurologist planned for discontinuation of Keppra at [...] 20 g 20 g Oral Daily PRN iTm Yuen MD And magnesium citrate oral liquid [...] Tim Yuen MD 81 mg at 06/16/24 09 atorvastatin (Lipitor) tablet 40 mg 40 mg [...] Daily Tim Yuen MD 0.1 mg at 06/16/24923 desmopressin (Ddavp) tablet 0.15 mg 0.15 mg [...] Daily Tim Yuen MD 10 mg at 06/16/24922 LORazepam (Ativan) (2 mg/mL) injection 2 mg [...] EEG CONTINUOUS MONITORING INPATIENT 2024 PRO OPEN CONSUMER EDUCATOR FIX ACETABULAR FX Left 09/04/2017 @OPEN TREATMENT, ACETABULAR FX (WRVU 25.41) performed by Amy Lance MD at [facility] MAIN OR Allergies: Allergies Allergen Reactions [...] wbc, hgb, hct plt Recent Labs 06/17/24 002 WBC 6.81 HGB 12.9* HCT 37.9* Last [...] 06/14/2024 4:02 AM) Result Value WORKSTATION ID [id number] Impression Low lung volumes with crowding of bronchovascular markings without radiographically evident acute cardiopulmonary process. Thank you for letting us participate in the care of this patient. If you are a health care provider and have any questions regarding this report, please contact the number below. For patients who have questions please contact the health furnace caretaker that requested your imaging first. Electronically signed by: Beverley Valencia MD, [facility] ([phone]), at 06/14/2024 4:32 AM Request For 2nd Read CT Head (Exam End: 06/14/2024 9:46 AM) Result Value WORKSTATION ID [id number] Impression Hypoattenuating, likely cystic mass appears to [...] who have questions please contact the health furnace caretaker that requested your imaging first. Brain wwo Contrast (Generic) (Exam End: 2024 4:20 PM) Result Value WORKSTATION ID [id number] Impression Homogeneously enhancing 3.5 cm mass along [...] who have questions please contact the health furnace caretaker that requested your imaging first. Assessment: Abram [...] Holland MD Neurology, PGY-3 Consult Neurology Service #[id number] 06/17/2024 ATTENDING NOTE: I reviewed the pertinent [...] tends to do much better at his retirement than the hospital environment as he is [...] EEG CONTINUOUS MONITORING INPATIENT 2024 PRO OPEN CONSUMER EDUCATOR FIX ACETABULAR FX Left 09/04/2017 @OPEN TREATMENT, ACETABULAR FX (WRVU 25.41) performed by Amy Lance MD at [facility] MA[facility] OR Allergies: Allergies Allergen Reactions [...] focal atrophy Arm flexion 5/5 b/l Hand brim stiffener 5/5 b/l Able to wiggle toes Reflexes: [...] continue to follow. Americo Flores, MS4 [facility] * Consult Note - Kellen Braxton MD [...] been altered recently. This afternoon at his retirement he had a two minutewitnessed tonic clonic [...] nightly to twice daily dosing at his retirement, which she had not been on before. 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 Sister reports that he has had low sodium in the past, she believes in the 120s or lower, but has not triggered seizures in the past. Patient has previously been seen at [facility] in 2014. His deficits at that time included left hemiparesis, cortical blindness, urine incontinence, dysarthria and gait disorder. 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 According to [facility] documentation, he had a spell at his retirement that was concerning for seizure one month prior to his visit. BG at the time was in the 40s and he was started on Keppra in addition to Zonegran. [facility] neurologist planned for discontinuation of Keppra at [...] EEG CONTINUOUS MONITORING INPATIENT 2024 PRO OPEN CONSUMER EDUCATOR FIX ACETABULAR FX Left 09/04/2017 @OPEN TREATMENT, ACETABULAR FX (WRVU 25.41) performed by Amy Lance MD at [facility] OR Allergies: Allergies Allergen Reactions [...] 06/14/2024 4:02 AM) Result Value WORKSTATION ID [id number] Impression Low lung volumes with crowding of bronchovascular markings without radiographically evident acute cardiopulmonary process. Thank you for letting us participate in the care of this patient. If you are a health care provider and have any questions regarding this report, please contact the number below. For patients who have questions please contact the health furnace caretaker that requested your imaging first. Electronically signed by: Beverley Valencia MD, [facility] ([phone]), at 06/14/2024 4:32 AM Request For 2nd Read CT Head (Exam End: 06/14/2024 9:46 AM) Result Value WORKSTATION ID [id number] Impression Hypoattenuating, likely cystic mass appears to [...] who have questions please contact the health furnace caretaker that requested your imaging first. Brain wwo Contrast (Generic) (Exam End: 2024 4:20 PM) Result Value WORKSTATION ID [id number] Impression Homogeneously enhancing 3.5 cm mass along [...] who have questions please contact the health furnace caretaker that requested your imaging first. 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 This [...] once nightly to twice daily by his retirement. He may need titration of medicationsto promote [...] record, and Guardian (Spoke with Bettina-Guardian) This JAMSHID Introduced self/reviewed role; services accepted. [...] Capacity: Guardian Name(s): Bettina Burgos Contact Information: [phone] (cell) Proxy Activated: Yes Paperwork on file?: [...] home: other (see comments) (Lives in a retirement.). Current LivingArrangements: retirement. Accessibility Concerns:Easy access to his surroundings. Fully [...] homeless or living in a half-way (including now)?: No In the past 12 months has the [email or web address], gas, oil, or water [employer] threatened to shut off services in your [...] at times) Home Address confirmed as: [address] [facility] [address] Attn: Lia Courtney [facility] [address] Social & Family Supports: All names listed below confirmed with patient as current and correct Extended Emergency Contact Information Primary Emergency Contact: Bettina Burgos Address: [address] [place] [address] [id number] [facility] Relation: Guardianship Secondary Emergency Contact: Lc Merlos [facility] Relation: Other Current Care Provided by: [facility] Provides Primary Care For: no one, unable/limited ability to care for self Caregiver if needed: other (see comments) (care home) Quality of Family relationships: supportive, involved Community Resources being provided currently: retirement Behavioral Health History: Per chart review, Pt [...] N/A ; Prescription Coverage: Yes Preferred Pharmacy: [facility] Home Delivery - [facility] [address] [facility] [address] [facility] [address] [facility] [address] [facility] [address] [facility] [address] [facility] [place], [place] - [address] [address] [facility] [address] [place] Status: Patient is a : No Primary Care Provider confirmed: Ren Vaz MD [phone] Patient/Caregiver Goals of Treatment: Anticipating return to retirement when medically ready Potential Needs for Transition of Care: none Agency Referrals: [facility] [employer] Transportation: no concerns Transportation Anticipated: agency Concerns to be Addressed: other (see comments) (Needing transportation via [facility] at discharge) Assessment: Patient is admitted to service for Hyponatremia Pt is a 34 year dependent male, living in a retirement. Pt guardian is his sister, Bettina. Bettina is very involved and supportive. Guardianship paperwork is on file. Pt is cared for by his group homestaff while his finances remain in the care of his guardian. Reached out to [facility] [employer] to confirm transportation plans. The retirement will reach out with any information regarding this. Plan going forward: Pending hospital course Care Management team will continue to follow and assist with discharge planing and coordination of care as indicated. JAMSHID Ramirez Medicine SW Pager [phone] * Consult Note - Kellen Braxton MD [...] been altered recently. This afternoon at his retirement he had a two minutewitnessed tonic clonic [...] nightly to twice daily dosing at his retirement, which she had not been on before. 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 Sister reports that he has had low sodium in the past, she believes in the 120s or lower, but has not triggered seizures in the past. Patient has previously been seen at [facility] in 2014. His deficits at that time included left hemiparesis, cortical blindness, urine incontinence, dysarthria and gait disorder. 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 According to [facility] documentation, he had a spell at his retirement that was concerning for seizure one month prior to his visit. BG at the time was in the 40s and he was started on Keppra in addition to Zonegran. [facility] neurologist planned for discontinuation of Keppra at [...] Surgical History: Procedure Laterality Date PRO OPEN CONSUMER EDUCATOR FIX ACETABULAR FX Left 09/04/2017 @OPEN TREATMENT, ACETABULAR FX (WRVU 25.41) performed by Amy Lance MD at [facility] MA[facility] OR Allergies: Allergies Allergen Reactions [...] 06/14/2024 4:02 AM) Result Value WORKSTATION ID [id number] Impression Low lung volumes with crowding of bronchovascular markings without radiographically evident acute cardiopulmonary process. Thank you for letting us participate in the care of this patient. If you are a health care provider and have any questions regarding this report, please contact the number below. For patients who have questions please contact the health furnace caretaker that requested your imaging first. Electronically signed by: Beverley Valencia MD, [facility] ([phone]), at 06/14/2024 4:32 AM Request For 2nd Read CT Head (Exam End: 06/14/2024 9:46 AM) Result Value WORKSTATION ID [id number] Impression Hypoattenuating, likely cystic mass appears to [...] who have questions please contact the health furnace caretaker that requested your imaging first. 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 Neurosurgery is consulted for a 3 cm hypodensity in the anterior right middle fossa. He lives at a retirement. This past weekend, he was in his normal state of health when he had a witnessed 2 minute seizure, reportedly with generalized stiffening. He was brought to [facility], where he was found to have Na of 121. He had a tongue laceration. In the ED there he had an additional witnessed seizure. He was transferred to [facility] for a higher level of care [...] underwent tumor resection with Dr. Álvarez at [facility]. This was complicated by arterial bleeding with [...] Surgical History: Procedure Laterality Date PRO OPEN CONSUMER EDUCATOR FIX ACETABULAR FX Left 09/04/2017 @OPEN TREATMENT, ACETABULAR FX (WRVU 25.41) performed by Amy Lance MD at [facility] MAIN OR MEDICATIONS: No current facility-administered [...] file Social History Narrative Lives at the [facility], moved in 11/07/2014. Social Determinants of Health [...] neurosurgery attending. No future appointments. Neurosurgery Pager: [phone] Gonzalez Kirkpatrick MD Neurosurgery PGY-1 06/14/2024 6:44 [...] Surgical History: Procedure Laterality Date PRO OPEN CONSUMER EDUCATOR FIX ACETABULAR FX Left 09/04/2017 @OPEN TREATMENT, ACETABULAR FX (WRVU 25.41) performed by Amy Lance MD at [facility] OR Social History: Patient lives in a retirement. Home Setup: accessible DME: none Baseline ADL/Mobility: [...] x2 handhold Ambulation: CGA x2 handhold for iwryz-wkca-soqs transfer EOB<>commode Stand to sit: CGA Sit [...] be determined Anticipated Discharge Dispostion: adult foster care/retirement (pending on progress) Other Recommendations: Open shades [...] Discharge planning. Total Minutes, Occupational Therapy: 16 ([id number] (evaluation)) 2017 OT Evaluation Code Rationale: Diagnosis [...] and measurable assessment of functional outcome. Pager: [phone] Dinorah Navas OTR/L 06/14/2024 Occupational Therapy Rehabilitation [...] March 2024. He currently resides in a retirement, [facility] where nurses and medical assistants provide [...] Surgical History: Procedure Laterality Date PRO OPEN CONSUMER EDUCATOR FIX ACETABULAR FX Left 09/04/2017 @OPEN TREATMENT, ACETABULAR FX (WRVU 25.41) performed by Amy Lance MD at [facility] MAIN OR No family history on [...] file Social History Narrative Lives at the [facility] [place]/2014. Social Determinants of Health [...] access to additional DDAVP dosing at his retirement. Pos sibility of him having access to additional water/fluid intake over the last few weeks. Patients sister and legal guardian said that this is possible given there is often health care recruiter turnover and not everyone is up to [...] with Dr. Morris. Crista Gill MD. PGY4 [facility] [place][phone] I have seen the patient and reviewed [...] is effective and safe Shola Morris MD Hotel Service Supervisordirector of cloud services Endocrinology Section [facility] * Consult Note - Kellen Braxton MD - 06/14/2024 6:49 AM EST Neurology Inpatient Consult Note - 06/14/2024 Admit date: 06/14/2024 Attending: Mariola Alfred MD ID: Abram Burgos is a 33 y.o. [...] been altered recently. This afternoon at his retirement he had a two minutewitnessed tonic clonic [...] nightly to twice daily dosing at his retirement, which she had not been on before. 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 Sister reports that he has had low sodium in the past, she believes in the 120s or lower, but has not triggered seizures in the past. Patient has previously been seen at [facility] in 2014. His deficits at that time included left hemiparesis, cortical blindness, urine incontinence, dysarthria and gait disorder. 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 According to [facility] documentation, he had a spell at his retirement that was concerning for seizure one month prior to his visit. BG at the time was in the 40s and he was started on Keppra in addition to Zonegran. [facility] neurologist planned for discontinuation of Keppra at [...] Surgical History: Procedure Laterality Date PRO OPEN CONSUMER EDUCATOR FIX ACETABULAR FX Left 09/04/2017 @OPEN TREATMENT, ACETABULAR FX (WRVU 25.41) performed by Amy Lance MD at [facility] MA[facility] OR Allergies: Allergies Allergen Reactions [...] Flexor digitorum profundus Digit II-V flexion / vp construction 5 5 L2-3 Iliopsoas Hip flexion 5 [...] wbc, hgb, hct plt Recent Labs 06/14/24 05 WBC 8.68 HGB 12.5* HCT 35.8* Last 3 Lytes Recent Labs 06/14/24 0506/14/24 0332 06/14/24 0103 NA 124* 122* 123* [...] 06/14/2024 4:02 AM) Result Value WORKSTATION ID [id number] Impression Low lung volumes with crowding of bronchovascular markings without radiographically evident acute cardiopulmonary process. Thank you for letting us participate in the care of this patient. If you are a health care provider and have any questions regarding this report, please contact the number below. For patients who have questions please contact the health furnace caretaker that requested your imaging first. Electronically signed by: Beverley Valencia MD, [facility] ([phone]), at 06/14/2024 4:32 AM Assessment: Abram Burgos [...] Holland MD Neurology, PGY-3 Consult Neurology Service #[id number] 06/14/2024 ATTENDING NOTE: I reviewed the pertinent [...] 2024 4:20 PM EST Unlisted Mri Procedure ([id number]) 2024 2:56 PM EST Please evaluate lesion [...] 06/14/2024 9:46 AM EST URINALYSIS BEAKER MICROSCOPIC ([facility]) SHEEBA 06/14/2024 8:06 AM EST _URINALYSIS WITH [...] Function Panel (06/21/2024 12:50 AM EST) Pathologist [facility] [place] Albumin 4.0 3.2 - 5.2 g/dL 06/21/2024 1:[address] [facility] Aspartate Aminotransferase 47(H) <=39 unit/L 06/21/2024 1:30 AM [facility] Alanine Aminotransferase 64(H) 0 - 55 unit/L 06/21/2024 1:30 AM [facility] Alkaline Phosphatase 141(H) 40 - 130 unit/L 06/21/2024 1:30 AM [facility] Bilirubin, Total <0.2 <=1.3 mg/dL 06/21/2024 1:30 AM [facility] Bilirubin, Direct <0.2 0.0 - 0.3 mg/dL 06/21/2024 1:30 AM [facility] Protein, Total 7.1 6.1 - 8.0 g/dL 06/21/2024 1:30 AM [facility] Blood VENOUS BLOOD SPECIMEN / Unknown Venipuncture / Unknown 06/21/2024 12:50 AM EST 06/21/2024 12:56 AM EST Martinez Reynolds MD CHEMISTRY ORDERABLES Performing Organization Address City/State/[facility] Co de Phone Number [facility] [place] [phone] * (ABNORMAL) CBC (with Diff) (06/21/2024 12:50 AM EST) White Blood Cell 7.52 4.00 - 9.50 x10(3)/mc L 06/21/2024 1:09 AM [facility] Red Blood Cell 5.33 4.58 - 5.54 x10(6)/mc L 06/21/2024 1:09 AM [facility] Hemoglobin 12.9(L) 13.7 - 16.5 g/dL 06/21/2024 1:09 AM [facility] Hematocrit 39.9(L) 40.5 - 48.5 % 06/21/2024 1:09 AM [facility] Mean Cell Volume 74.9(L) 82.9 - 93.1 fL 06/21/2024 1:09 AM [facility] Mean Cell Hemoglobin 24.2(L) 27.5 - 32.1 pg 06/21/2024 1:09 AM [facility] Mean Cell Hemoglobin Concentration 32.3 32.0 - 35.7 g/dL 06/21/2024 1:09 AM [facility] Platelet 268 145 - 357 x10(3)/mc L 06/21/2024 1:09 AM [facility] Mean Platelet Volume 9.1 7.6 - 12.9 fL 06/21/2024 1:09 AM [facility] RDW Standard Deviation 39.8 36.0 - 45.0 fL 06/21/2024 1:09 AM [facility] RDW coefficient of variation 15.0(H) 11.4 - 13.8 % 06/21/2024 1:09 AM [facility] NRBC% auto 0.0 % 06/21/2024 1:09 AM [facility] NRBC Absolute <0.01 <0.01 x10(3)/mc L 06/21/2024 1:09 AM [facility] Neutrophil % 63.6 % 06/21/2024 1:09 AM [facility] Neutrophil Absolute (ANC) - Automated 4.78 1.70 - 6.10 x10(3)/mc L 06/21/2024 1:09 AM [facility] Lymph % 23.7 % 06/21/2024 1:09 AM [facility] Lymph Absolute 1.78 0.90 - 3.20 x10(3)/mc L 06/21/2024 1:09 AM [facility] Monocyte % 9.8 % 06/21/2024 1:09 AM [facility] Monocyte Absolute 0.74 0.30 - 0.90 x10(3)/mc L 06/21/2024 1:09 AM [facility] Eos % 2.0 % 06/21/2024 1:09 AM [facility] Eos Absolute 0.15 0.00 - 0.40 x10(3)/mc L 06/21/2024 1:09 AM [facility] Basophil % 0.4 % 06/21/2024 1:09 AM [facility] Baso Absolute <0.04 0.00 - 0.10 x10(3)/mc L 06/21/2024 1:09 AM [facility] Immature Gran % 0.5 % 1:09 AM [facility] Immature Gran Absolute 0.04 0.00 - 0.04 x10(3)/mc L 06/21/2024 1:09 AM [facility] Blood VENOUS BLOOD SPECIMEN / Unknown Venipuncture / Unknown 06/21/2024 12:50 AM EST 06/21/2024 12:56 AM EST Martinez Reynolds MD HEMATOLOGY ORDERABLE S [facility] [place] [address] * Phosphorus (06/21/2024 12:50 AM EST) Phosphorus 3.2 2.5 - 4.5 mg/dL 06/21/2024 1:30 AM [facility] Blood VENOUS BLOOD SPECIMEN / Unknown Venipuncture / Unknown 06/21/2024 12:50 AM EST 06/21/2024 12:56 AM EST Martinez Reynolds [place] [address] * Magnesium (06/21/2024 12:50 AM EST) Magnesium 0.81 0.69 - 1.07 mMol/L 06/21/2024 1:30 AM [facility] Blood VENOUS BLOOD SPECIMEN / Unknown Venipuncture / Unknown 06/21/2024 12:50 AM EST 06/21/2024 12:56 AM EST Martinez Reynolds MD CHEMISTRY ORDERABLES [facility] [place] [address] * (ABNORMAL) Basic Metabolic Panel (06/21/2024 12:50 AM EST) Glucose 126 65 - 199 mg/dL 06/21/2024 1:44 AM [facility] Comment:Glucose Concentratio n >=200 mg/dL plus symptoms is consistent with Diabetes Mellitus. Blood Urea Nitrogen 12 10 - 20 mg/dL 06/21/2024 1:44 AM [facility] Creatinine 0.82 0.80 - 1.50 mg/dL 06/21/2024 1:44 AM [facility] Sodium 141 135 - 145 mMol/L 06/21/2024 1:44 AM [facility] Potassium 4.3 3.5 - 5.0 mMol/L 06/21/2024 1:44 AM [facility] Chloride 111(H) 98 - 107 mMol/L 06/21/2024 1:44 AM [facility] Carbon Dioxide 18(L) 22 - 31 mMol/L 06/21/2024 1:44 AM [facility] Anion Gap 12 5 - 15 mMol/L 06/21/2024 1:44 AM [facility] Calcium 9.0 8.5 - 10.5 mg/dL 06/21/2024 1:44 AM [facility] Est Glomerular Filtration Rate - Male 118 mL/min/1. 73 m?? 06/21/2024 1:44 AM [facility] Comment: This patient's estimated GFR [...] Reynolds MD CHEMISTRY ORDERABLES Performing Organization Address City/[facility]/ZIP Co de Phone Number [facility] [place] [address] * (ABNORMAL) Hepatic Function Panel (06/20/2024 12:53 AM EST) Albumin 4.4 3.2 - 5.2 g/dL 06/20/2024 1:[address] [facility] Aspartate Aminotransferase 65(H) <=39 unit/L 06/20/2024 1:[address] [facility] Alanine Aminotransferase 80(H) 0 - 55 unit/L 06/20/2024 1:42 AM [facility] Alkaline Phosphatase 128 40 - 130 unit/L 06/20/2024 1:[address] [facility] Bilirubin, Total <0.2 <=1.3 mg/dL 06/20/2024 1:[address] [facility] Bilirubin, Direct <0.2 0.0 - 0.3 mg/dL 06/20/2024 1:[address] [facility] Protein, Total 7.4 6.1 - 8.0 g/dL 06/20/2024 1:[address] [facility] Blood VENOUS BLOOD SPECIMEN / Unknown Venipuncture / Unknown 06/20/2024 12:53 AM EST 06/20/2024 1:11 AM EST Martinez Reynolds MD CHEMISTRY ORDERABLES [facility] [place] [address] * (ABNORMAL) CBC (with Diff) (06/20/2024 12:53 AM EST) White Blood Cell 5.59 4.00 - 9.50 x10(3)/mc L 06/20/2024 1:23 AM [facility] Red Blood Cell 5.50 4.58 - 5.54 x10(6)/mc L 06/20/2024 1:23 AM [facility] Hemoglobin 13.5(L) 13.7 - 16.5 g/dL 06/20/2024 1:23 AM [facility] Hematocrit 40.9 40.5 - 48.5 % 06/20/2024 1:23 AM [facility] Mean Cell Volume 74.4(L) 82.9 - 93.1 fL 06/20/2024 1:23 AM [facility] Mean Cell Hemoglobin 24.5(L) 27.5 - 32.1 pg 06/20/2024 1:23 AM [facility] Mean Cell Hemoglobin Concentration 33.0 32.0 - 35.7 g/dL 06/20/2024 1:23 AM [facility] Platelet 303 145 - 357 x10(3)/mc L 06/20/2024 1:23 AM [facility] Mean Platelet Volume 8.9 7.6 - 12.9 fL 06/20/2024 1:23 AM [facility] RDW Standard Deviation 39.6 36.0 - 45.0 fL 06/20/2024 1:23 AM [facility] RDW coefficient of variation 14.7(H) 11.4 - 13.8 % 06/20/2024 1:23 AM [facility] NRBC% auto 0.0 % 06/20/2024 1:23 AM [facility] NRBC Absolute <0.01 <0.01 x10(3)/mc L 06/20/2024 1:23 AM [facility] Neutrophil % 54.2 % 06/20/2024 1:23 AM [facility] Neutrophil Absolute (ANC) - Automated 3.03 1.70 - 6.10 x10(3)/mc L 06/20/2024 1:23 AM [facility] Lymph % 31.1 % 06/20/2024 1:23 AM [facility] Lymph Absolute 1.74 0.90 - 3.20 x10(3)/mc L 06/20/2024 1:23 AM [facility] Monocyte % 11.8 % 06/20/2024 1:23 AM [facility] Monocyte Absolute 0.66 0.30 - 0.90 x10(3)/mc L 06/20/2024 1:23 AM [facility] Eos % 2.0 % 06/20/2024 1:23 AM [facility] Eos Absolute 0.11 0.00 - 0.40 x10(3)/mc L 06/20/2024 1:23 AM [facility] Basophil % 0.4 % 06/20/2024 1:23 AM [facility] Baso Absolute <0.04 0.00 - 0.10 x10(3)/mc L 06/20/2024 1:23 AM [facility] Immature Gran % 0.5 % 1:23 AM [facility] Immature Gran Absolute <0.04 0.00 - 0.04 x10(3)/mc L 06/20/2024 1:23 AM [facility] Blood VENOUS BLOOD SPECIMEN / Unknown Venipuncture / Unknown 06/20/2024 12:53 AM EST 06/20/2024 1:12 AM EST Martinez Reynolds MD HEMATOLOGY ORDERABLE S [facility] [place] [address] * Phosphorus (06/20/2024 12:53 AM EST) Pathologist [facility] [place] Phosphorus 3.7 2.5 - 4.5 mg/dL 06/20/2024 1:42 AM [facility] Blood VENOUS BLOOD SPECIMEN / Unknown Venipuncture / Unknown 06/20/2024 12:53 AM EST 06/20/2024 1:11 AM EST Martinez Reynolds MD CHEMISTRY ORDERABLES Performing Organization Address City/[facility]/ZIP Co de Phone Number [facility] [place] [address] * Magnesium (06/20/2024 12:53 AM EST) [facility] Magnesium 0.76 0.69 - 1.07 mMol/L 06/20/2024 1:42 AM [facility] Blood VENOUS BLOOD SPECIMEN / Unknown Venipuncture / Unknown 06/20/2024 12:53 AM EST 06/20/2024 1:11 AM EST Martinez Reynolds MD CHEMISTRY ORDERABLES Performing Organization Address City/[facility]/ZIP Co de Phone Number [facility] [place] [address] * (ABNORMAL) Basic Metabolic Panel (06/20/2024 12:53 AM EST) [facility] Glucose 95 65 - 199 mg/dL 06/20/2024 1:42 AM [facility] Comment:Glucose Concentratio n >=200 mg/dL plus symptoms is consistent with Diabetes Mellitus. Blood Urea Nitrogen 10 10 - 20 mg/dL 06/20/2024 1:42 AM [facility] Creatinine 0.75(L) 0.80 - 1.50 mg/dL 06/20/2024 1:42 AM [facility] Sodium 137 135 - 145 mMol/L 06/20/2024 1:42 AM [facility] Potassium 3.7 3.5 - 5.0 mMol/L 06/20/2024 1:[address] [facility] Chloride 102 98 - 107 mMol/L 06/20/2024 1:42 AM [facility] Carbon Dioxide 20(L) 22 - 31 mMol/L 06/20/2024 1:42 AM [facility] Anion Gap 15 5 - 15 mMol/L 06/20/2024 1:42 AM [facility] Calcium 9.1 8.5 - 10.5 mg/dL 06/20/2024 1:42 AM [facility] Est Glomerular Filtration Rate - Male 121 mL/min/1. 73 m?? 06/20/2024 1:42 AM [facility] Comment: This patient's estimated GFR [...] AM EST Martinez Reynolds MD CHEMISTRY ORDERABLES [facility] [place] [address] * (ABNORMAL) Hepatic Function Panel (06/19/2024 4:10 AM EST) Albumin 4.2 3.2 - 5.2 g/dL 06/19/2024 4:[address] [facility] Aspartate Aminotransferase 57(H) <=39 unit/L 06/19/2024 4:[address] [facility] Alanine Aminotransferase 76(H) 0 - 55 unit/L 06/19/2024 4:51 AM [facility] Alkaline Phosphatase 133(H) 40 - 130 unit/L 06/19/2024 4:51 AM [facility] Bilirubin, Total 0.2 <=1.3 mg/dL 06/19/2024 4:51 AM [facility] Bilirubin, Direct <0.2 0.0 - 0.3 mg/dL 06/19/2024 4:51 AM [facility] Protein, Total 7.5 6.1 - 8.0 g/dL 06/19/2024 4:51 AM [facility] Blood VENOUS BLOOD SPECIMEN / Unknown Venipuncture / Unknown 06/19/2024 4:10 AM EST 06/19/2024 4:21 AM EST Martinez Reynolds MD CHEMISTRY ORDERABLES Performing Organization Address City/State/[facility] Co de Phone Number [facility] [place] [address] * (ABNORMAL) CBC (with Diff) (06/19/2024 4:10 AM EST) White Blood Cell 6.86 4.00 - 9.50 x10(3)/mc L 06/19/2024 4:28 AM [facility] Red Blood Cell 5.60(H) 4.58 - 5.54 x10(6)/mc L 06/19/2024 4:28 AM [facility] Hemoglobin 13.8 13.7 - 16.5 g/dL 06/19/2024 4:28 AM [facility] Hematocrit 41.6 40.5 - 48.5 % 06/19/2024 4:28 AM [facility] Mean Cell Volume 74.3(L) 82.9 - 93.1 fL 06/19/2024 4:28 AM [facility] Mean Cell Hemoglobin 24.6(L) 27.5 - 32.1 pg 06/19/2024 4:28 AM [facility] Mean Cell Hemoglobin Concentration 33.2 32.0 - 35.7 g/dL 06/19/2024 4:28 AM [facility] Platelet 297 145 - 357 x10(3)/mc L 06/19/2024 4:28 AM [facility] Mean Platelet Volume 9.1 7.6 - 12.9 fL 06/19/2024 4:28 AM [facility] RDW Standard Deviation 39.1 36.0 - 45.0 fL 06/19/2024 4:28 AM [facility] RDW coefficient of variation 14.8(H) 11.4 - 13.8 % 06/19/2024 4:28 AM [facility] NRBC% auto 0.0 % 06/19/2024 4:28 AM [facility] NRBC Absolute <0.01 <0.01 x10(3)/mc L 06/19/2024 4:28 AM [facility] Neutrophil % 64.0 % 06/19/2024 4:28 AM [facility] Neutrophil Absolute (ANC) - Automated 4.39 1.70 - 6.10 x10(3)/mc L 06/19/2024 4:28 AM [facility] Lymph % 28.7 % 06/19/2024 4:28 AM [facility] Lymph Absolute 1.97 0.90 - 3.20 x10(3)/mc L 06/19/2024 4:28 AM [facility] Monocyte % 4.1 % 06/19/2024 4:28 AM [facility] Monocyte Absolute 0.28(L) 0.30 - 0.90 x10(3)/mc L 06/19/2024 4:28 AM [facility] Eos % 2.2 % 06/19/2024 4:28 AM [facility] Eos Absolute 0.15 0.00 - 0.40 x10(3)/mc L 06/19/2024 4:[address] [facility] Basophil % 0.4 % 06/19/2024 4:[address] [facility] Baso Absolute <0.04 0.00 - 0.10 x10(3)/mc L 06/19/2024 4:[address] [facility] Immature Gran % 0.6 % 4:[address] [facility] Immature Gran Absolute 0.04 0.00 - 0.04 x10(3)/mc L 06/19/2024 4:[address] [facility] Blood VENOUS BLOOD SPECIMEN / Unknown Venipuncture / Unknown 06/19/2024 4:10 AM EST 06/19/2024 4:21 AM EST Martinez Reynolds MD HEMATOLOGY ORDERABLE S Performing Organization Address City/[facility]/ZIP Co de Phone Number [facility] [place] [address] * (ABNORMAL) Phosphorus (06/19/2024 4:10 AM EST) Phosphorus 5.0(H) 2.5 - 4.5 mg/dL 06/19/2024 4:[address] [facility] Blood VENOUS BLOOD SPECIMEN / Unknown Venipuncture / Unknown 06/19/2024 4:10 AM EST 06/19/2024 4:21 AM EST Martinez Reynolds MD CHEMISTRY ORDERABLES [facility] [place] [address] * Magnesium (06/19/2024 4:10 AM EST) Magnesium 0.74 0.69 - 1.07 mMol/L 06/19/2024 4:[address] [facility] Blood VENOUS BLOOD SPECIMEN / Unknown Venipuncture / Unknown 06/19/2024 4:10 AM EST 06/19/2024 4:21 AM EST Martinez Reynolds MD CHEMISTRY ORDERABLES [facility] [place] [address] * (ABNORMAL) Basic Metabolic Panel (06/19/2024 4:10 AM EST) Glucose 112 65 - 199 mg/dL 06/19/2024 4:51 AM [facility] Comment:Glucose Concentratio n >=200 mg/dL plus symptoms is consistent with Diabetes Mellitus. Blood Urea Nitrogen 19 10 - 20 mg/dL 06/19/2024 4:51 AM [facility] Creatinine 0.86 0.80 - 1.50 mg/dL 06/19/2024 4:51 AM [facility] Sodium 135 135 - 145 mMol/L 06/19/2024 4:51 AM [facility] Potassium 3.8 3.5 - 5.0 mMol/L 06/19/2024 4:51 AM [facility] Chloride 97(L) 98 - 107 mMol/L 06/19/2024 4:51 AM [facility] Carbon Dioxide 25 22 - 31 mMol/L 06/19/2024 4:51 AM [facility] Anion Gap 13 5 - 15 mMol/L 06/19/2024 4:51 AM [facility] [facility] Calcium 9.4 8.5 - 10.5 mg/dL 06/19/2024 4:51 AM [facility] Est Glomerular Filtration Rate - Male 117 mL/min/1. 73 m?? 06/19/2024 4:51 AM [facility] Comment: This patient's estimated GFR [...] AM EST Martinez Reynolds MD CHEMISTRY ORDERABLES [facility] [place] [address] * (ABNORMAL) Urinalysis with reflex Culture (06/19/2024 3:22 AM EST) Glucose, Urine Dipstick Negative Negative 06/19/2024 3:37 AM [facility] Protein, Urine Dipstick Negative Negative 06/19/2024 3:37 AM [facility] Bilirubin, Urine Dipstick Negative Negative 06/19/2024 3:37 AM [facility] Comment:Clinical correlation required for positive Urine Bilirubin results as false positive may occur with some drugs and drug related products. If a false positive is suspected a serum total bilirubin should be considered if clinically indicated. Urobilinogen, Urine Dipstick Normal Normal, 0.2 mg/dL, 1.0 mg/dL 06/19/2024 3:37 AM [facility] pH, Urine (dipstick) 6.5 5.0 - 8.0 06/19/2024 3:37 AM [facility] Blood, Urine Dipstick Negative Negative 06/19/2024 3:37 AM [facility] Ketone, Urine Dipstick Negative Negative 06/19/2024 3:37 AM [facility] Nitrite, Urine Dipstick Negative Negative 06/19/2024 3:37 AM [facility] Leukocytes, Urine Dipstick Negative Negative 06/19/2024 3:37 AM [facility] Specific [place] Urine Automated 1.021 1.005 - 1.030 06/19/2024 3:[address] [facility] Appearance, Urine Dipstick Cloudy(A) Clear 06/19/2024 3:[address] [facility] Color, Urine Dipstick Yellow Yellow, Dark Yellow 06/19/2024 3:[address] [facility] CULTURE ADDED? 06/19/2024 3:[address] [facility] Urine URINE SPECIMEN OBTAINED VIA STRAIGHT CATHETER / Unknown Non Blood Collection / Unknown 06/19/2024 3:22 AM EST 06/19/2024 3:31 AM EST Pamela Johnson DO URINE ORDERABLES [facility] [place] [address] * XR Chest One View (06/18/2024 7:55 PM EST) [employer] WORKSTATION ID [id number] RAD Anatomical Region Laterality Modality Chest N/A [...] who have questions please contact the health furnace caretaker that requested your imaging first. ? Electronically signed by: Tobias Sotomayor MD, [facility] ([phone]), at 06/18/2024 8:09 PM Narrative 06/18/2024 8:09 [...] patients who have questions please contactthe health furnace caretaker that requested your imaging first. Electronically signed by: [facility]([phone]), at 06/18/2024 8:09 PM Pamela Johnson DO IMG DX ORDERABLES * Blood culture (06/18/2024 7:00 PM EST) Blood Culture No growth at 120 hours 06/23/2024 8:[address] [facility] Blood VENOUS BLOOD SPECIMEN / Unknown Venipuncture / Unknown 06/18/2024 7:00 PM EST 06/18/2024 7:05 PM EST Pamela Johnson DO MICROBIOLOGY - BL OOD ORDERABLES [facility] [place] [address] * (ABNORMAL) Blood culture (06/18/2024 7:00 PM EST) [facility] Blood Culture Coagulase Negative Staphylococcus species(Critical) VITEK 2 METHOD 06/23/2024 6:[address] [facility] Comment: detected by PCR Interpretation of the importance of skin akbar such as Coag Negative Staph, Viridans Strep, Corynebacteria and other Gram Positive orgs from a single Blood Culture set requires clinical correlation. Gram Stain Anaerobic Bottle: Gram positive cocci in clusters(Critical ) 06/23/2024 6:[address] [facility] Comment:This is an appended report. These results have been appended to a previously preliminary verified report. Blood VENOUS BLOOD SPECIMEN / Unknown Venipuncture / Unknown 06/18/2024 7:00 PM EST 06/18/2024 7:05 PM EST Pamela Johnson DO MICROBIOLOGY - BL OOD ORDERABLES Performing Organization Address [facility]/ZIP Co de Phone Number [facility] [place] [address] * POC, GLUCOSE (06/18/2024 6:55 PM EST) [facility] Glucometer, POC 100 65 - 199 mg/dL 06/18/2024 6:[address] [facility] Comment:Supplemental ranges: <140 mg/dL before meals <180 mg/dL all other times of the day. Blood CAPILLARY BLOOD / Unknown 06/18/2024 6:55 PM EST 06/18/2024 6:56 PM EST Pamela Johnson DO POINT OF CARE TABATHA T ORDERABLES Performing Organization Address City/[facility]/ZIP Co de Phone Number [facility] [place] [address] * EKG 12 Lead (06/18/2024 1:41 PM EST) Ventricular rate 47 BPM MUSE SYSTEM Atrial Rate 47 BPM MUSE SYSTEM P-R Interval 186 ms MUSE SYSTEM QRS Duration 114 ms MUSE SYSTEM Q-T Interval 558 ms MUSE SYSTEM QTC Calculated (Bezet) 493 ms MUSE SYSTEM Calculated P Bloomingrose 11 degrees MUSE SYSTEM Calculated R [place] 45 degrees MUSE SYSTEM Calculated T [place] 45 degrees MUSE SYSTEM INTERPRETATION Sinus bradycardia [...] Reynolds MD ECG ORDERABLES Performing Organization Address City/[facility]/ZIP Co de Phone Number MUSE SYSTEM * Sodium (06/18/2024 12:22 PM EST) Pathologist [facility] [place] Sodium 135 135 - 145 mMol/L 06/18/2024 1:[address] [facility] Blood VENOUS BLOOD SPECIMEN / Unknown Venipuncture / Unknown 06/18/2024 12:22 PM EST 06/18/2024 12:35 PM EST Pamela Johnson DO CHEMISTRY ORDERAB LES Performing Organization Address City/[facility]/ZIP Co de Phone Number [facility] [place] [address] * CT Head wo Contrast (Generic) (06/18/2024 11:18 AM EST) WORKSTATION ID [id number] RAD Anatomical Region Laterality Modality Head Computed [...] who have questions please contact the health furnace caretaker that requested your imaging first. ? Narrative [...] patients who have questions please contactthe health furnace caretaker that requested your imaging first. Pamela Johnson DO [facility] [place] ORDERABLES * (ABNORMAL) Hepatic Function Panel (06/18/2024 1:26 AM EST) [facility] Albumin 4.2 3.2 - 5.2 g/dL 06/18/2024 2:02 AM [facility] Aspartate Aminotransferase 52(H) <=39 unit/L 06/18/2024 2:02 AM [facility] Alanine Aminotransferase 61(H) 0 - 55 unit/L 06/18/2024 2:02 AM [facility] Alkaline Phosphatase 118 40 - 130 unit/L 06/18/2024 2:02 AM [facility] Bilirubin, Total 0.3 <=1.3 mg/dL 06/18/2024 2:02 AM [facility] Bilirubin, Direct <0.2 0.0 - 0.3 mg/dL 06/18/2024 2:02 AM [facility] Protein, Total 6.9 6.1 - 8.0 g/dL 06/18/2024 2:02 AM [facility] Blood VENOUS BLOOD SPECIMEN / Unknown Venipuncture / Unknown 06/18/2024 1:26 AM EST 06/18/2024 1:34 AM EST Martinez Reynolds MD CHEMISTRY ORDERABLES [facility] [place] [address] * (ABNORMAL) CBC (with Diff) (06/18/2024 1:26 AM EST) [facility] White Blood Cell 9.78(H) 4.00 - 9.50 x10(3)/mc L 06/18/2024 1:[address] [facility] Red Blood Cell 5.02 4.58 - 5.54 x10(6)/mc L 06/18/2024 1:38 AM [facility] Hemoglobin 12.4(L) 13.7 - 16.5 g/dL 06/18/2024 1:38 AM [facility] Hematocrit 37.2(L) 40.5 - 48.5 % 06/18/2024 1:38 AM [facility] Mean Cell Volume 74.1(L) 82.9 - 93.1 fL 06/18/2024 1:38 AM [facility] Mean Cell Hemoglobin 24.7(L) 27.5 - 32.1 pg 06/18/2024 1:38 AM [facility] Mean Cell Hemoglobin Concentration 33.3 32.0 - 35.7 g/dL 06/18/2024 1:38 AM [facility] Platelet 262 145 - 357 x10(3)/mc L 06/18/2024 1:38 AM [facility] Mean Platelet Volume 9.2 7.6 - 12.9 fL 06/18/2024 1:38 AM [facility] RDW Standard Deviation 40.8 36.0 - 45.0 fL 06/18/2024 1:38 AM [facility] RDW coefficient of variation 15.3(H) 11.4 - 13.8 % 06/18/2024 1:38 AM [facility] NRBC% auto 0.0 % 06/18/2024 1:38 AM [facility] NRBC Absolute <0.01 <0.01 x10(3)/mc L 06/18/2024 1:38 AM [facility] Neutrophil % 72.8 % 06/18/2024 1:38 AM [facility] Neutrophil Absolute (ANC) - Automated 7.12(H) 1.70 - 6.10 x10(3)/mc L 06/18/2024 1:38 AM [facility] Lymph % 16.9 % 06/18/2024 1:38 AM [facility] Lymph Absolute 1.65 0.90 - 3.20 x10(3)/mc L 06/18/2024 1:[address] [facility] Monocyte % 8.7 % 06/18/2024 1:[address] [facility] Monocyte Absolute 0.85 0.30 - 0.90 x10(3)/mc L 06/18/2024 1:[address] [facility] Eos % 1.0 % 06/18/2024 1:[address] [facility] Eos Absolute 0.10 0.00 - 0.40 x10(3)/mc L 06/18/2024 1:[address] [facility] Basophil % 0.2 % 06/18/2024 1:38 AM [facility] Baso Absolute <0.04 0.00 - 0.10 x10(3)/mc L 06/18/2024 1:38 AM [facility] Immature Gran % 0.4 % 1:38 AM [facility] Immature Gran Absolute 0.04 0.00 - 0.04 x10(3)/mc L 06/18/2024 1:[address] [facility] Blood VENOUS BLOOD SPECIMEN / Unknown Venipuncture / Unknown 06/18/2024 1:26 AM EST 06/18/2024 1:34 AM EST Martinez Reynolds MD HEMATOLOGY ORDERABLE S [facility] [place] [address] * (ABNORMAL) Phosphorus (06/18/2024 1:26 AM EST) Phosphorus 5.7(H) 2.5 - 4.5 mg/dL 06/18/2024 2:[address] [facility] Blood VENOUS BLOOD SPECIMEN / Unknown Venipuncture / Unknown 06/18/2024 1:26 AM EST 06/18/2024 1:34 AM EST Martinez Reynolds MD CHEMISTRY ORDERABLES [facility] [place] [address] * Magnesium (06/18/2024 1:26 AM EST) Pathologist [facility] [place] Magnesium 0.84 0.69 - 1.07 mMol/L 06/18/2024 2:02 AM [facility] Blood VENOUS BLOOD SPECIMEN / Unknown Venipuncture / Unknown 06/18/2024 1:26 AM EST 06/18/2024 1:34 AM EST Martinez Reynolds MD CHEMISTRY ORDERABLES Performing Organization Address City/[facility]/ZIP Co de Phone Number [facility] [place] [address] * Basic Metabolic Panel (06/18/2024 1:26 AM EST) Pathologist [facility] [place] Glucose 106 65 - 199 mg/dL 06/18/2024 2:02 AM [facility] Comment:Glucose Concentratio n >=200 mg/dL plus symptoms is consistent with Diabetes Mellitus. Blood Urea Nitrogen 15 10 - 20 mg/dL 06/18/2024 2:02 AM [facility] Creatinine 1.05 0.80 - 1.50 mg/dL 06/18/2024 2:02 AM [facility] Sodium 138 135 - 145 mMol/L 06/18/2024 2:02 AM [facility] Potassium 4.4 3.5 - 5.0 mMol/L 06/18/2024 2:02 AM [facility] Chloride 102 98 - 107 mMol/L 06/18/2024 2:02 AM [facility] Carbon Dioxide 25 22 - 31 mMol/L 06/18/2024 2:02 AM [facility] Anion Gap 11 5 - 15 mMol/L 06/18/2024 2:02 AM [facility] Calcium 9.3 8.5 - 10.5 mg/dL 06/18/2024 2:[address] [facility] Est Glomerular Filtration Rate - Male 96 mL/min/1. 73 m?? 06/18/2024 2:[address] [facility] Comment: This patient's estimated GFR [...] AM EST Martinez Reynolds MD CHEMISTRY ORDERABLES [facility] [place] [id number] * EKG 12 Lead (06/18/2024 12:53 AM EST) Ventricular rate 79 BPM MUSE SYSTEM Atrial Rate 79 BPM MUSE SYSTEM P-R Interval 160 ms MUSE SYSTEM QRS Duration 98 ms MUSE SYSTEM Q-T Interval 420 ms MUSE SYSTEM QTC Calculated (Bezet) 481 ms MUSE SYSTEM Calculated P [place]rose 17 degrees MUSE SYSTEM Calculated R [place] 46 degrees MUSE SYSTEM Calculated T [place] 45 degrees MUSE SYSTEM INTERPRETATION Normal sinus rhythm Nonspecific T wave abnormality Prolonged QT Abnormal ECG When compared with ECG of 14-JUN-2024 01:04, Nonspecific T wave abnormality now evident in Anterior leads I personally reviewed the tracing and edited the fellows interpretation Confirmed by fellow MD Corbin, Maninder ([id number]) on 06/18/2024 4:57:53 PM Confirmed by Anthony Penn MD ([id number]) on 06/19/2024 3:21:54 PM MUSE SYSTEM 06/18/2024 12:5 3 AM EST 06/19/2024 3:21 PM EST Samantha Babb MD ECG ORDERABLES [facility] * Sodium (06/17/2024 5:50 PM EST) Sodium 141 135 - 145 mMol/L 06/17/2024 6:[address] [facility] Blood VENOUS BLOOD SPECIMEN / Unknown Venipuncture / Unknown 06/17/2024 5:50 PM EST 06/17/2024 6:07 PM EST Channing Ballesteros MD CHEMISTRY ORDERABLES Performing Organization Address City/[facility]/ZIP Co de Phone Number [facility] [place] [address] * (ABNORMAL) Hepatic Function Panel (06/17/2024 11:58 AM EST) Albumin 4.2 3.2 - 5.2 g/dL 06/17/2024 12:45 PM [facility] Aspartate Aminotransferase 37 <=39 unit/L 06/17/2024 12:45 PM [facility] Alanine Aminotransferase 58(H) 0 - 55 unit/L 06/17/2024 12:45 PM [facility] Alkaline Phosphatase 118 40 - 130 unit/L 06/17/2024 12:45 PM [facility] Bilirubin, Total 0.2 <=1.3 mg/dL 06/17/2024 12:45 PM [facility] Bilirubin, Direct <0.2 0.0 - 0.3 mg/dL 06/17/2024 12:45 PM [facility] Protein, Total 7.1 6.1 - 8.0 g/dL 06/17/2024 12:45 PM [facility] Blood VENOUS BLOOD SPECIMEN / Unknown Venipuncture / Unknown 06/17/2024 11:58 AM EST 06/17/2024 12:11 PM EST Pamela Johnson DO CHEMISTRY ORDERAB LES [facility] [place] [address] * Sodium (06/17/2024 11:58 AM EST) Sodium 141 135 - 145 mMol/L 06/17/2024 12:[address] [facility] Blood VENOUS BLOOD SPECIMEN / Unknown Venipuncture / Unknown 06/17/2024 11:58 AM EST 06/17/2024 12:11 PM EST Channing Ballesteros MD CHEMISTRY ORDERABLES Performing Organization Address City/[facility]/ZIP Co de Phone Number [facility] [place] [address] * Sodium (06/17/2024 6:23 AM EST) Sodium 140 135 - 145 mMol/L 06/17/2024 6:[address] [facility] Blood VENOUS BLOOD SPECIMEN / Unknown Venipuncture / Unknown 06/17/2024 6:23 AM EST 06/17/2024 6:29 AM EST Channing Ballesteros MD CHEMISTRY ORDERABLES Performing Organization Address City/[facility]/ZIP Co de Phone Number [facility] [place] [address] * (ABNORMAL) CBC (with Diff) (06/17/2024 12:22 AM EST) White Blood Cell 6.81 4.00 - 9.50 x10(3)/mc L 06/17/2024 12:[address] [facility] Red Blood Cell 5.20 4.58 - 5.54 x10(6)/mc L 06/17/2024 12:[address] [facility] Hemoglobin 12.9(L) 13.7 - 16.5 g/dL 06/17/2024 12:[address] [facility] Hematocrit 37.9(L) 40.5 - 48.5 % 06/17/2024 12:37 AM [facility] Mean Cell Volume 72.9(L) 82.9 - 93.1 fL 06/17/2024 12:37 AM [facility] Mean Cell Hemoglobin 24.8(L) 27.5 - 32.1 pg 06/17/2024 12:37 AM [facility] Mean Cell Hemoglobin Concentration 34.0 32.0 - 35.7 g/dL 06/17/2024 12:37 AM [facility] Platelet 301 145 - 357 x10(3)/mc L 06/17/2024 12:37 AM [facility] Mean Platelet Volume 9.0 7.6 - 12.9 fL 06/17/2024 12:37 AM [facility] RDW Standard Deviation 38.8 36.0 - 45.0 fL 06/17/2024 12:37 AM [facility] RDW coefficient of variation 14.9(H) 11.4 - 13.8 % 06/17/2024 12:37 AM [facility] NRBC% auto 0.0 % 06/17/2024 12:37 AM [facility] NRBC Absolute <0.01 <0.01 x10(3)/mc L 06/17/2024 12:37 AM [facility] Neutrophil % 58.2 % 06/17/2024 12:37 AM [facility] Neutrophil Absolute (ANC) - Automated 3.96 1.70 - 6.10 x10(3)/mc L 06/17/2024 12:37 AM [facility] Lymph % 30.1 % 06/17/2024 12:37 AM [facility] Lymph Absolute 2.05 0.90 - 3.20 x10(3)/mc L 06/17/2024 12:37 AM [facility] Monocyte % 9.8 % 06/17/2024 12:37 AM [facility] Monocyte Absolute 0.67 0.30 - 0.90 x10(3)/mc L 06/17/2024 12:37 AM [facility] Eos % 1.0 % 06/17/2024 12:37 AM [facility] Eos Absolute 0.07 0.00 - 0.40 x10(3)/mc L 06/17/2024 12:[address] [facility] Basophil % 0.3 % 06/17/2024 12:37 AM [facility] Baso Absolute <0.04 0.00 - 0.10 x10(3)/mc L 06/17/2024 12:37 AM [facility] Immature Gran % 0.6 % 12:37 AM [facility] Immature Gran Absolute 0.04 0.00 - 0.04 x10(3)/mc L 06/17/2024 12:37 AM [facility] Blood VENOUS BLOOD SPECIMEN / Unknown Venipuncture / Unknown 06/17/2024 12:22 AM EST 06/17/2024 12:28 AM EST Martinez Reynolds MD HEMATOLOGY ORDERABLE S [facility] [place] [address] * Phosphorus (06/17/2024 12:22 AM EST) Phosphorus 4.3 2.5 - 4.5 mg/dL 06/17/2024 12:[address] [facility] Blood VENOUS BLOOD SPECIMEN / Unknown Venipuncture / Unknown 06/17/2024 12:22 AM EST 06/17/2024 12:28 AM EST Martinez Reynolds MD CHEMISTRY ORDERABLES [facility] [place] [address] * Magnesium (06/17/2024 12:22 AM EST) Magnesium 0.88 0.69 - 1.07 mMol/L 06/17/2024 12:[address] [facility] Blood VENOUS BLOOD SPECIMEN / Unknown Venipuncture / Unknown 06/17/2024 12:22 AM EST 06/17/2024 12:28 AM EST Martinez Reynolds MD CHEMISTRY ORDERABLES [facility] [place] [address] * Basic Metabolic Panel (06/17/2024 12:22 AM EST) Glucose 99 65 - 199 mg/dL 06/17/2024 1:12 AM [facility] Comment:Glucose Concentratio n >=200 mg/dL plus symptoms is consistent with Diabetes Mellitus. Blood Urea Nitrogen 14 10 - 20 mg/dL 06/17/2024 1:12 AM [facility] Creatinine 0.90 0.80 - 1.50 mg/dL 06/17/2024 1:12 AM [facility] Sodium 140 135 - 145 mMol/L 06/17/2024 1:12 AM [facility] Potassium 4.1 3.5 - 5.0 mMol/L 06/17/2024 1:12 AM [facility] Chloride 105 98 - 107 mMol/L 06/17/2024 1:12 AM [facility] Carbon Dioxide 24 22 - 31 mMol/L 06/17/2024 1:12 AM [facility] Anion Gap 11 5 - 15 mMol/L 06/17/2024 1:12 AM [facility] Calcium 9.4 8.5 - 10.5 mg/dL 06/17/2024 1:12 AM [facility] Est Glomerular Filtration Rate - Male 115 mL/min/1. 73 m?? 06/17/2024 1:12 AM [facility] Comment: This patient's estimated GFR [...] Reynolds MD CHEMISTRY ORDERABLES Performing Organization Address [facility] de Phone Number [facility] [place] [address] * Sodium (06/16/2024 6:37 PM EST) Sodium 142 135 - 145 mMol/L 06/16/2024 6:[address] [facility] Blood VENOUS BLOOD SPECIMEN / Unknown Venipuncture / Unknown 06/16/2024 6:37 PM EST 06/16/2024 6:42 PM EST Channing Ballesteros MD CHEMISTRY ORDERABLES Performing Organization Address [facility] Co de Phone Number [facility] [place] [address] * Sodium (06/16/2024 2:05 PM EST) Sodium 135 135 - 145 mMol/L 06/16/2024 2:[address] [facility] Blood VENOUS BLOOD SPECIMEN / Unknown Venipuncture / Unknown 06/16/2024 2:05 PM EST 06/16/2024 2:23 PM EST Channing Ballesteros MD CHEMISTRY ORDERABLES Performing Organization Address [place]/[facility] Co de Phone Number [facility] [place] [address] * Sodium (06/16/2024 12:03 PM EST) Sodium 139 135 - 145 mMol/L 06/16/2024 1:[address] [facility] Blood VENOUS BLOOD SPECIMEN / Unknown Venipuncture / Unknown 06/16/2024 12:03 PM EST 06/16/2024 12:06 PM EST Marline Calderon [employer]PERATOR CHEMISTRY ORDERABL ES [facility] [place] [address] * (ABNORMAL) Sodium (06/16/2024 6:00 AM EST) Sodium 131(L) 135 - 145 mMol/L 06/16/2024 6:[address] [facility] Blood VENOUS BLOOD SPECIMEN / Unknown Venipuncture / Unknown 06/16/2024 6:00 AM EST 06/16/2024 6:03 AM EST Marline Calderon [employer] OPERATOR CHEMISTRY ORDERABL ES [facility] [place] [address] * (ABNORMAL) CBC (with Diff) (06/16/2024 12:09 AM EST) White Blood Cell 7.71 4.00 - 9.50 x10(3)/mc L 06/16/2024 12:[address] [facility] Red Blood Cell 4.69 4.58 - 5.54 x10(6)/mc L 06/16/2024 12:[address] [facility] Hemoglobin 11.7(L) 13.7 - 16.5 g/dL 06/16/2024 12:[address] [facility] Hematocrit 33.8(L) 40.5 - 48.5 % 06/16/2024 12:26 AM [facility] Mean Cell Volume 72.1(L) 82.9 - 93.1 fL 06/16/2024 12:26 AM [facility] Mean Cell Hemoglobin 24.9(L) 27.5 - 32.1 pg 06/16/2024 12:26 AM [facility] Mean Cell Hemoglobin Concentration 34.6 32.0 - 35.7 g/dL 06/16/2024 12:26 AM [facility] Platelet 241 145 - 357 x10(3)/mc L 06/16/2024 12:26 AM [facility] Mean Platelet Volume 9.3 7.6 - 12.9 fL 06/16/2024 12:26 AM [facility] RDW Standard Deviation 37.3 36.0 - 45.0 fL 06/16/2024 12:26 AM [facility] RDW coefficient of variation 14.5(H) 11.4 - 13.8 % 06/16/2024 12:26 AM [facility] NRBC% auto 0.0 % 06/16/2024 12:26 AM [facility] NRBC Absolute <0.01 <0.01 x10(3)/mc L 06/16/2024 12:26 AM [facility] Neutrophil % 64.4 % 06/16/2024 12:26 AM [facility] Neutrophil Absolute (ANC) - Automated 4.96 1.70 - 6.10 x10(3)/mc L 06/16/2024 12:26 AM [facility] Lymph % 23.7 % 06/16/2024 12:26 AM [facility] Lymph Absolute 1.83 0.90 - 3.20 x10(3)/mc L 06/16/2024 12:26 AM [facility] Monocyte % 9.7 % 06/16/2024 12:26 AM [facility] Monocyte Absolute 0.75 0.30 - 0.90 x10(3)/mc L 06/16/2024 12:26 AM [facility] Eos % 1.0 % 06/16/2024 12:26 AM [facility] Eos Absolute 0.08 0.00 - 0.40 x10(3)/mc L 06/16/2024 12:[address] [facility] Basophil % 0.4 % 06/16/2024 12:26 AM [facility] Baso Absolute <0.04 0.00 - 0.10 x10(3)/mc L 06/16/2024 12:26 AM [facility] Immature Gran % 0.8 % 12:26 AM [facility] Immature Gran Absolute 0.06(H) 0.00 - 0.04 x10(3)/mc L 06/16/2024 12:26 AM [facility] Blood VENOUS BLOOD SPECIMEN / Unknown Venipuncture / Unknown 06/16/2024 12:09 AM EST 06/16/2024 12:21 AM EST Martinez Reynolds MD HEMATOLOGY ORDERABLE S [facility] [place] [address] * Phosphorus (06/16/2024 12:09 AM EST) Phosphorus 3.2 2.5 - 4.5 mg/dL 06/16/2024 12:[address] [facility] Blood VENOUS BLOOD SPECIMEN / Unknown Venipuncture / Unknown 06/16/2024 12:09 AM EST 06/16/2024 12:21 AM EST Martinez Reynolds MD CHEMISTRY ORDERABLES [facility] [place] [address] * Magnesium (06/16/2024 12:09 AM EST) Magnesium 0.85 0.69 - 1.07 mMol/L 06/16/2024 12:50 AM [facility] Blood VENOUS BLOOD SPECIMEN / Unknown Venipuncture / Unknown 06/16/2024 12:09 AM EST 06/16/2024 12:21 AM EST Martinez Reynolds MD CHEMISTRY ORDERABLES Performing Organization Address City/State/[facility] Co de Phone Number [facility] [place] [address] * (ABNORMAL) Basic Metabolic Panel (06/16/2024 12:09 AM EST) Glucose 92 65 - 199 mg/dL 06/16/2024 12:50 AM [facility] Comment:Glucose Concentratio n >=200 mg/dL plus symptoms is consistent with Diabetes Mellitus. Blood Urea Nitrogen 12 10 - 20 mg/dL 06/16/2024 12:50 AM [facility] Creatinine 0.92 0.80 - 1.50 mg/dL 06/16/2024 12:50 AM [facility] Sodium 131(L) 135 - 145 mMol/L 06/16/2024 12:50 AM [facility] Potassium 3.9 3.5 - 5.0 mMol/L 06/16/2024 12:50 AM [facility] Chloride 99 98 - 107 mMol/L 06/16/2024 12:50 AM [facility] Carbon Dioxide 22 22 - 31 mMol/L 06/16/2024 12:50 AM [facility] Anion Gap 10 5 - 15 mMol/L 06/16/2024 12:50 AM [facility] Calcium 8.3(L) 8.5 - 10.5 mg/dL 06/16/2024 12:50 AM [facility] Est Glomerular Filtration Rate - Male 112 mL/min/1. 73 m?? 06/16/2024 12:50 AM [facility] Comment: This patient's estimated GFR [...] Reynolds MD CHEMISTRY ORDERABLES Performing Organization Address City/[facility]/ZIP Co de Phone Number [facility] [place] [address] * (ABNORMAL) Sodium (2024 5:58 PM EST) Sodium 129(L) 135 - 145 mMol/L 2024 6:[address] [facility] Blood VENOUS BLOOD SPECIMEN / Unknown Venipuncture / Unknown 2024 5:58 PM EST 2024 6:05 PM EST Marline Calderon APRN CHEMISTRY ORDERABL ES Performing Organization Address [facility]/ZIP Co de Phone Number [facility] [place] [address] * MRI Brain wwo Contrast (Generic) (2024 4:20 PM EST) WORKSTATION ID [id number] RAD Anatomical Region Laterality Modality Head Magnetic [...] who have questions please contact the health furnace caretaker that requested your imaging first. ? Narrative [...] clip with its blades near the right INTENSIVE CARE NURSE. Procedure Note Raudel Heredia MD - 2024 [...] aneurysm clipwith its blades near the right INTENSIVE CARE NURSE. IMPRESSION Homogeneously enhancing 3.5 cm mass along [...] patients who have questions please contactthe health furnace caretaker that requested your imaging first. Marline Calderon APRN IMG MRI ORDERABLES * (ABNORMAL) Sodium (2024 12:07 PM EST) Sodium 129(L) 135 - 145 mMol/L 2024 12:[address] [facility] Blood VENOUS BLOOD SPECIMEN / Unknown Venipuncture / Unknown 2024 12:07 PM EST 2024 12:33 PM EST Marline Calderon APRN CHEMISTRY ORDERABL ES [facility] [place] [address] * (ABNORMAL) Sodium (2024 5:54 AM EST) Sodium 128(L) 135 - 145 mMol/L 2024 6:42 AM [facility] Blood VENOUS BLOOD SPECIMEN / Unknown Venipuncture / Unknown 2024 5:54 AM EST 2024 6:14 AM EST Marline Calderon APRN CHEMISTRY ORDERABL ES [facility] [place] [address] * (ABNORMAL) CBC (with Diff) (2024 12:06 AM EST) White Blood Cell 6.30 4.00 - 9.50 x10(3)/mc L 2024 12:17 AM [facility] Red Blood Cell 4.79 4.58 - 5.54 x10(6)/mc L 2024 12:17 AM [facility] Hemoglobin 11.9(L) 13.7 - 16.5 g/dL 2024 12:17 AM [facility] Hematocrit 34.2(L) 40.5 - 48.5 % 2024 12:17 AM [facility] Mean Cell Volume 71.4(L) 82.9 - 93.1 fL 2024 12:17 AM [facility] Mean Cell Hemoglobin 24.8(L) 27.5 - 32.1 pg 2024 12:17 AM [facility] Mean Cell Hemoglobin Concentration 34.8 32.0 - 35.7 g/dL 2024 12:17 AM [facility] Platelet 269 145 - 357 x10(3)/mc L 2024 12:17 AM [facility] Mean Platelet Volume 9.1 7.6 - 12.9 fL 2024 12:17 AM [facility] RDW Standard Deviation 35.5(L) 36.0 - 45.0 fL 2024 12:17 AM [facility] RDW coefficient of variation 13.9(H) 11.4 - 13.8 % 2024 12:17 AM [facility] NRBC% auto 0.0 % 2024 12:17 AM [facility] NRBC Absolute <0.01 <0.01 x10(3)/mc L 2024 12:17 AM [facility] Neutrophil % 57.9 % 2024 12:17 AM [facility] Neutrophil Absolute (ANC) - Automated 3.65 1.70 - 6.10 x10(3)/mc L 2024 12:17 AM [facility] Lymph % 30.3 % 2024 12:17 AM [facility] Lymph Absolute 1.91 0.90 - 3.20 x10(3)/mc L 2024 12:17 AM [facility] Monocyte % 9.7 % 2024 12:17 AM [facility] Monocyte Absolute 0.61 0.30 - 0.90 x10(3)/mc L 2024 12:17 AM [facility] Eos % 1.3 % 2024 12:17 AM [facility] Eos Absolute 0.08 0.00 - 0.40 x10(3)/mc L 2024 12:17 AM [facility] Basophil % 0.3 % 2024 12:17 AM [facility] Baso Absolute <0.04 0.00 - 0.10 x10(3)/mc L 2024 12:17 AM [facility] Immature Gran % 0.5 % 12:[address] [facility] Immature Gran Absolute <0.04 0.00 - 0.04 x10(3)/mc L 2024 12:[address] [facility] Blood VENOUS BLOOD SPECIMEN / Unknown Venipuncture / Unknown 2024 12:06 AM EST 2024 12:10 AM EST Martinez Reynolds MD HEMATOLOGY ORDERABLE S [facility] [place] [address] * Phosphorus (2024 12:06 AM EST) Phosphorus 2.8 2.5 - 4.5 mg/dL 2024 12:[address] [facility] Blood VENOUS BLOOD SPECIMEN / Unknown Venipuncture / Unknown 2024 12:06 AM EST 2024 12:10 AM EST Martinez Reynolds MD CHEMISTRY ORDERABLES Performing Organization Address City/[facility] Co de Phone Number [facility] [place] [address] * Magnesium (2024 12:06 AM EST) Magnesium 0.79 0.69 - 1.07 mMol/L 2024 12:[address] [facility] Blood VENOUS BLOOD SPECIMEN / Unknown Venipuncture / Unknown 2024 12:06 AM EST 2024 12:10 AM EST Martinez Reynolds MD CHEMISTRY ORDERABLES Performing Organization Address City/[facility] Co de Phone Number [facility] [place] [address] * (ABNORMAL) Basic Metabolic Panel (2024 12:06 AM EST) Glucose 103 65 - 199 mg/dL 2024 12:39 AM [facility] Comment:Glucose Concentratio n >=200 mg/dL plus symptoms is consistent with Diabetes Mellitus. Blood Urea Nitrogen 14 10 - 20 mg/dL 2024 12:39 AM [facility] Creatinine 0.74(L) 0.80 - 1.50 mg/dL 2024 12:39 AM [facility] Sodium 128(L) 135 - 145 mMol/L 2024 12:39 AM [facility] Potassium 4.1 3.5 - 5.0 mMol/L 2024 12:39 AM [facility] Chloride 97(L) 98 - 107 mMol/L 2024 12:39 AM [facility] Carbon Dioxide 19(L) 22 - 31 mMol/L 2024 12:39 AM [facility] Anion Gap 12 5 - 15 mMol/L 2024 12:39 AM [facility] Calcium 8.1(L) 8.5 - 10.5 mg/dL 2024 12:39 AM [facility] Est Glomerular Filtration Rate - Male 122 mL/min/1. 73 m?? 2024 12:39 AM [facility] Comment: This patient's estimated GFR [...] Reynolds MD CHEMISTRY ORDERABLES Performing Organization Address City/[facility] Co de Phone Number [facility] [place] [address] * (ABNORMAL) Sodium (06/14/2024 6:49 PM EST) Sodium 126(L) 135 - 145 mMol/L 06/14/2024 7:[address] [facility] Blood VENOUS BLOOD SPECIMEN / Unknown Venipuncture / Unknown 06/14/2024 6:49 PM EST 06/14/2024 6:53 PM EST Marline Calderon APRN CHEMISTRY ORDERABL ES Performing Organization Address [facility] Co de Phone Number [facility] [place] [address] * EEG Continuous Monitoring Inpatient (06/14/2024 3:33 [...] - 145 mMol/L 06/14/2024 3:[address] [facility] Blood VENOUS BLOOD SPECIMEN / Unknown Venipuncture / Unknown 06/14/2024 2:15 PM EST 06/14/2024 2:36 PM EST Mariola Alfred MD CHEMISTRY ORDERABLES [facility] [place] [address] * (ABNORMAL) Sodium (06/14/2024 12:12 PM EST) Sodium 125(L) 135 - 145 mMol/L 06/14/2024 12:[address] [facility] Blood VENOUS BLOOD SPECIMEN / Unknown Venipuncture / Unknown 06/14/2024 12:12 PM EST 06/14/2024 12:20 PM EST Mariola Alfred MD CHEMISTRY ORDERABLES [facility] [place] [address] * (ABNORMAL) Sodium (06/14/2024 10:35 AM EST) Sodium 125(L) 135 - 145 mMol/L 06/14/2024 11:[address] [facility] Blood VENOUS BLOOD SPECIMEN / Unknown Venipuncture / Unknown 06/14/2024 10:35 AM EST 06/14/2024 10:44 AM EST Mariola Alfred MD CHEMISTRY ORDERABLES Performing Organization Address City/[facility]/ZIP Co de Phone Number [facility] [place] [address] * Request For 2nd Read CT Head (06/14/2024 9:46 AM EST) WORKSTATION ID [id number] [facility] Anatomical Region Laterality Modality Head SO [...] who have questions please contact the health furnace caretaker that requested your imaging first. ? Electronically signed by: [employer]O [employer] [facility] ([phone]), at 06/14/2024 10:41 AM Narrative 06/14/2024 10:41 AM EST EXAMINATION: REQUEST FOR 2ND READ CT HEAD CLINICAL HISTORY: New seizure with known mass, ?enlargening. Presenting with seizure; Sending Institution [facility]; Date of exam [id number]; I believe a reinterpretation of this exam may alter care of Patient. Yes TECHNIQUE: Reinterpretation of noncontrast CT head performed at [facility] 06/13/2024 at 2143 hours COMPARISON: Noncontrast [...] known mass, ?enlargening. Presentingwith seizure; Sending Institution [facility]; Date of exam [id number]; I believe a reinterpretation of this exam may alter care of Patient. Yes TECHNIQUE: Reinterpretation of noncontrast CT head performed at [facility] 06/13/2024 at 2143 hours COMPARISON: Noncontrast [...] patients who have questions please contactthe health furnace caretaker that requested your imaging first. Lexie Osullivan APRN IMG OUTSIDE INTERP RETATION ORDERABLES * (ABNORMAL) Urinalysis Microscopic (06/14/2024 8:06 AM EST) Bacteria, Urine None None /HPF 12:26 PM [facility] Amorphous Crystals, Urine Many(A) None /HPF 06/14/2024 12:26 PM [facility] RBC, Urine 1 0 - 3 /HPF 06/14/2024 12:26 PM [facility] WBC, Urine 1 0 - 3 /HPF 06/14/2024 12:26 PM [facility] Squamous Epithelial Cells, Urine 0 0 - 5 /HPF 06/14/2024 12:26 PM [facility] Hyaline Casts, Urine 0 0 - 2 /LPF 06/14/2024 12:26 PM [facility] Urine URINE SPECIMEN / Unknown Non Blood Collection / Unknown 06/14/2024 8:06 AM EST 06/14/2024 8:52 AM EST Marline Calderon APRN URINE ORDERABLES Performing Organization Address [facility] Co de Phone Number [facility] [place] [address] * Urinalysis Microscopic Exam (06/14/2024 8:06 AM EST) Urine URINE SPECIMEN / Unknown Non Blood Collection / Unknown 06/14/2024 8:06 AM EST 06/14/2024 8:52 AM EST Marline Calderon APRN URINE ORDERABLES Performing Organization Address City/[facility] Co de Phone Number [facility] [place] [address] * (ABNORMAL) Urinalysis Dipstick (06/14/2024 8:06 AM EST) Glucose, Urine Dipstick Negative Negative 06/14/2024 12:26 PM [facility] Protein, Urine Dipstick Negative Negative 06/14/2024 12:26 PM [facility] Bilirubin, Urine Dipstick Negative Negative 06/14/2024 12:26 PM [facility] Comment:Clinical correlation required for positive Urine Bilirubin results as false positive may occur with some drugs and drug related products. If a false positive is suspected a serum total bilirubin should be considered if clinically indicated. Urobilinogen, Urine Dipstick Normal Normal, 0.2 mg/dL, 1.0 mg/dL 06/14/2024 12:26 PM [facility] pH, Urine (dipstick) 7.0 5.0 - 8.0 06/14/2024 12:26 PM [facility] Blood, Urine Dipstick Negative Negative 06/14/2024 12:26 PM [facility] Ketone, Urine Dipstick Negative Negative 06/14/2024 12:26 PM [facility] Nitrite, Urine Dipstick Negative Negative 06/14/2024 12:26 PM [facility] Leukocytes, Urine Dipstick Negative Negative 06/14/2024 12:26 PM [facility] Specific [place] Urine Automated 1.016 1.005 - 1.030 06/14/2024 12:26 PM [facility] Appearance, Urine Dipstick Turbid(A) Clear 06/14/2024 12:26 PM [facility] Color, Urine Dipstick Yellow Yellow, Dark Yellow 06/14/2024 12:26 PM [facility] CULTURE ADDED? 06/14/2024 12:26 PM [facility] Urine URINE SPECIMEN / Unknown Non Blood Collection / Unknown 06/14/2024 8:06 AM EST 06/14/2024 8:52 AM EST Marline Calderon APRN URINE ORDERABLES [facility] [place] [address] * (ABNORMAL) Sodium (06/14/2024 8:06 AM EST) Sodium 124(L) 135 - 145 mMol/L 06/14/2024 9:[address] [facility] Blood VENOUS BLOOD SPECIMEN / Unknown Venipuncture / Unknown 06/14/2024 8:06 AM EST 06/14/2024 8:53 AM EST Mariola Alfred MD CHEMISTRY ORDERABLES [facility] [place] [address] * Electrolytes, urine, random (06/14/2024 8:06 AM EST) Sodium, Urine 76 mMol/L 06/14/2024 10:[address] [facility] Potassium, Urine 41 mMol/L 06/14/2024 10:[address] [facility] Chloride, Urine 52 mMol/L 06/14/2024 10:[address] [facility] Urine URINE SPECIMEN / Unknown Non Blood Collection / Unknown 06/14/2024 8:06 AM EST 06/14/2024 8:52 AM EST Mariola Alfred MD URINE ORDERABLES Performing Organization Address City/[facility]/ZIP Co de Phone Number [facility] [place] [address] * Osmolality, urine, random (06/14/2024 8:06 AM EST) Osmolality, Urine 496 50 - 1,200 mOsm/kg 06/14/2024 10:55 AM [facility] Urine URINE SPECIMEN / Unknown Non Blood Collection / Unknown 06/14/2024 8:06 AM EST 06/14/2024 8:52 AM EST Mariola Alfred MD URINE ORDERABLES Performing Organization Address City/[facility]/ZIP Co de Phone Number [facility] [place] [address] * (ABNORMAL) CBC (with Diff) (06/14/2024 5:27 AM EST) White Blood Cell 8.68 4.00 - 9.50 x10(3)/mc L 06/14/2024 5:54 AM [facility] Red Blood Cell 5.08 4.58 - 5.54 x10(6)/mc L 06/14/2024 5:54 AM [facility] Hemoglobin 12.5(L) 13.7 - 16.5 g/dL 06/14/2024 5:54 AM [facility] Hematocrit 35.8(L) 40.5 - 48.5 % 06/14/2024 5:54 AM [facility] Mean Cell Volume 70.5(L) 82.9 - 93.1 fL 06/14/2024 5:54 AM [facility] Mean Cell Hemoglobin 24.6(L) 27.5 - 32.1 pg 06/14/2024 5:54 AM [facility] Mean Cell Hemoglobin Concentration 34.9 32.0 - 35.7 g/dL 06/14/2024 5:54 AM [facility] Platelet 284 145 - 357 x10(3)/mc L 06/14/2024 5:54 AM [facility] Mean Platelet Volume 9.2 7.6 - 12.9 fL 06/14/2024 5:54 AM [facility] RDW Standard Deviation 34.3(L) 36.0 - 45.0 fL 06/14/2024 5:54 AM [facility] RDW coefficient of variation 13.6 11.4 - 13.8 % 06/14/2024 5:54 AM [facility] NRBC% auto 0.0 % 06/14/2024 5:54 AM [facility] NRBC Absolute <0.01 <0.01 x10(3)/mc L 06/14/2024 5:54 AM [facility] Neutrophil % 81.7 % 06/14/2024 5:54 AM [facility] Neutrophil Absolute (ANC) - Automated 7.09(H) 1.70 - 6.10 x10(3)/mc L 06/14/2024 5:54 AM [facility] Lymph % 13.0 % 06/14/2024 5:54 AM [facility] Lymph Absolute 1.13 0.90 - 3.20 x10(3)/mc L 06/14/2024 5:54 AM [facility] Monocyte % 4.3 % 06/14/2024 5:54 AM [facility] Monocyte Absolute 0.37 0.30 - 0.90 x10(3)/mc L 06/14/2024 5:54 AM [facility] Eos % 0.2 % 06/14/2024 5:54 AM [facility] Eos Absolute <0.04 0.00 - 0.40 x10(3)/mc L 06/14/2024 5:[address] [facility] Basophil % 0.2 % 06/14/2024 5:54 AM [facility] [facility] Baso Absolute <0.04 0.00 - 0.10 x10(3)/mc L 06/14/2024 5:54 AM [facility] Immature Gran % 0.6 % 5:54 AM [facility] Immature Gran Absolute 0.05(H) 0.00 - 0.04 x10(3)/mc L 06/14/2024 5:54 AM [facility] Blood VENOUS BLOOD SPECIMEN / Unknown Venipuncture / Unknown 06/14/2024 5:27 AM EST 06/14/2024 5:45 AM EST Martinez Reynolds MD HEMATOLOGY ORDERABLE S [facility] [place] [address] * Phosphorus (06/14/2024 5:27 AM EST) Phosphorus 2.8 2.5 - 4.5 mg/dL 06/14/2024 8:36 AM [facility] Blood VENOUS BLOOD SPECIMEN / Unknown Venipuncture / Unknown 06/14/2024 5:27 AM EST 06/14/2024 5:45 AM EST Martinez Reynolds [place] [address] * Magnesium (06/14/2024 5:27 AM EST) Magnesium 0.83 0.69 - 1.07 mMol/L 06/14/2024 6:[address] [facility] Blood VENOUS BLOOD SPECIMEN / Unknown Venipuncture / Unknown 06/14/2024 5:27 AM EST 06/14/2024 5:45 AM EST Martinez Reynolds MD CHEMISTRY ORDERABLES [facility] [place] [address] * (ABNORMAL) Basic Metabolic Panel (06/14/2024 5:27 AM EST) Glucose 109 65 - 199 mg/dL 06/14/2024 6:22 AM [facility] Comment:Glucose Concentratio n >=200 mg/dL plus symptoms is consistent with Diabetes Mellitus. Blood Urea Nitrogen 14 10 - 20 mg/dL 06/14/2024 6:22 AM [facility] Creatinine 0.76(L) 0.80 - 1.50 mg/dL 06/14/2024 6:22 AM [facility] Sodium 124(L) 135 - 145 mMol/L 06/14/2024 6:22 AM [facility] Potassium 4.0 3.5 - 5.0 mMol/L 06/14/2024 6:22 AM [facility] Chloride 93(L) 98 - 107 mMol/L 06/14/2024 6:22 AM [facility] Carbon Dioxide 19(L) 22 - 31 mMol/L 06/14/2024 6:22 AM [facility] Anion Gap 12 5 - 15 mMol/L 06/14/2024 6:22 AM [facility] Calcium 7.9(L) 8.5 - 10.5 mg/dL 06/14/2024 6:22 AM [facility] Est Glomerular Filtration Rate - Male 122 mL/min/1. 73 m?? 06/14/2024 6:22 AM [facility] Comment: This patient's estimated GFR [...] AM EST Martinez Reynolds MD CHEMISTRY ORDERABLES [facility] [place] [address] * XR Chest One View (06/14/2024 4:02 AM EST) ClariFI Signature WORKSTATION ID [id number] RAD Anatomical Region Laterality Modality Chest N/A [...] who have questions please contact the health furnace caretaker that requested your imaging first. ? Narrative 06/14/2024 4:32 AM EST EXAMINATION: XR [...] patients who have questions please contactthe health furnace caretaker that requested your imaging first. Mariola Alfred MD IMG DX ORDERABLES * (ABNORMAL) Sodium (06/14/2024 3:32 AM EST) Sodium 122(L) 135 - 145 mMol/L 06/14/2024 4:[address] [facility] Blood VENOUS BLOOD SPECIMEN / Unknown Venipuncture / Unknown 06/14/2024 3:32 AM EST 06/14/2024 3:37 AM EST Mariola Alfred MD CHEMISTRY ORDERABLES [facility] [place] [address] * (ABNORMAL) Blood Gas, Venous POC (06/14/2024 1:35 AM EST) pH, Venous 7.39 7.32 - 7.42 06/14/2024 1:36 AM [facility] PCO2, Venous 37(L) 38 - 58 mmHg 06/14/2024 1:36 AM [facility] PO2, Venous 27 16 - 65 mmHg 06/14/2024 1:36 AM [facility] Bicarbonate, Venous 21.9(L) 22 - 31 mmol/L 06/14/2024 1:36 AM [facility] Base Excess, Venous -3.1(L) 1.9 - 4.5 mmol/L 06/14/2024 1:36 AM [facility] Hemoglobin, Venous 13.4(L) 13.7 - 16.5 g/dL 06/14/2024 1:36 AM [facility] Oxyhemoglobin, Venous 46.8 % 06/14/2024 1:36 AM [facility] Carboxyhemoglobin , Venous 0.7 % 06/14/2024 1:36 AM [facility] Comment: Nonsmokers: 0.5-1.5% COHB ?? Smokers: Variable ??but usually less than 10% ?? Toxic: 20-30% COHB ?? Lethal: Greater than 60% COHB Methemoglobin, Venous 0.3 <=1.5 % 06/14/2024 1:36 AM [facility] Sodium, Venous 123(L) 135 - 145 mmol/L 06/14/2024 1:36 AM [facility] Potassium, Venous 3.7 3.5 - 5.0 mmol/L 06/14/2024 1:36 AM [facility] Chloride, Venous 92(L) 98 - 107 mmol/L 06/14/2024 1:36 AM [facility] Glucose, Venous 85 65 - 199 mg/dL 06/14/2024 1:36 AM [facility] Comment:Glucose Concentratio n >=200 mg/dL plus symptoms is consistent with Diabetes Mellitus. Lactate, Venous 2.3(H) 0.5 - 2.2 mmol/L 06/14/2024 1:36 AM [facility] Ionized Calcium, Venous 1.10(L) 1.15 - 1.33 mmol/L 06/14/2024 1:[address] [facility] Blood VENOUS BLOOD SPECIMEN / Unknown 06/14/2024 1:35 AM EST 06/14/2024 1:36 AM EST Mariola Alfred MD POINT OF CARE TEST O ELISABET Performing Organization Address [facility] Co de Phone Number [facility] [place] [address] * POC, GLUCOSE (06/14/2024 1:06 AM EST) Glucometer, POC 113 65 - 199 mg/dL 06/14/2024 1:[address] [facility] Comment:Supplemental ranges: <140 mg/dL before meals <180 mg/dL all other times of the day. Blood CAPILLARY BLOOD / Unknown 06/14/2024 1:06 AM EST 06/14/2024 1:06 AM EST Mariola Alfred MD POINT OF CARE TEST Hayden BHANDARI Performing Organization Address [facility] de Phone Number [facility] [place] [address] * EKG 12 Lead (06/14/2024 1:04 AM EST) Ventricular rate 85 BPM MUSE SYSTEM Atrial Rate 85 BPM MUSE SYSTEM P-R Interval 182 ms MUSE SYSTEM QRS Duration 94 ms MUSE SYSTEM Q-T Interval 388 ms MUSE SYSTEM QTC Calculated (Bezet) 461 ms MUSE SYSTEM Calculated P [place] 35 degrees MUSE SYSTEM Calculated R [place] 57 degrees MUSE SYSTEM Calculated T [place] 48 degrees MUSE SYSTEM INTERPRETATION Normal sinus rhythm Normal ECG When compared with ECG of 01-MAR-2018 09:20, Nonspecific T wave abnormality no longer evident in Inferior leads T wave inversion no longer evident in Lateral leads I personally reviewed the tracing and edited the fellows interpretation Confirmed by fellow Rosalie Obrien ([id number]) on 2024 9:31:30 PM Confirmed by Hannah Marin MD ([id number]) on 06/17/2024 11:43:44 AM MUSE SYSTEM 06/14/2024 1:04 AM EST 06/17/2024 11:43 AM EST Mariola Alfred MD ECG ORDERABLES MUSE SYSTEM * Scan, Peripheral Blood (06/14/2024 1:03 AM EST) RBC Morphology Abnormal 06/14/2024 2:[address] [facility] Platelet Estimate Normal Normal 06/14/2024 2:[address] [facility] Microcyte 1-5 /HPF 06/14/2024 2:[address] [facility] Tear Cell 1-5 /HPF 06/14/2024 2:[address] [facility] Blood VENOUS BLOOD SPECIMEN / Unknown Venipuncture / Unknown 06/14/2024 1:03 AM EST 06/14/2024 1:08 AM EST Mariola Alfred MD HEMATOLOGY ORDERABLE S [facility] [place] [address] * (ABNORMAL) CBC (with Diff) (06/14/2024 1:03 AM EST) White Blood Cell 10.38(H) 4.00 - 9.50 x10(3)/mc L 06/14/2024 2:[address] [facility] Red Blood Cell 5.05 4.58 - 5.54 x10(6)/mc L 06/14/2024 2:[address] [facility] Hemoglobin 12.2(L) 13.7 - 16.5 g/dL 06/14/2024 2:00 AM [facility] Hematocrit 35.5(L) 40.5 - 48.5 % 06/14/2024 2:[address] [facility] Mean Cell Volume 70.3(L) 82.9 - 93.1 fL 06/14/2024 2:00 AM [facility] Mean Cell Hemoglobin 24.2(L) 27.5 - 32.1 pg 06/14/2024 2:00 AM [facility] Mean Cell Hemoglobin Concentration 34.4 32.0 - 35.7 g/dL 06/14/2024 2:00 AM [facility] Platelet 276 145 - 357 x10(3)/mc L 06/14/2024 2:00 AM [facility] Mean Platelet Volume 9.0 7.6 - 12.9 fL 06/14/2024 2:00 AM [facility] RDW Standard Deviation 33.6(L) 36.0 - 45.0 fL 06/14/2024 2:00 AM [facility] RDW coefficient of variation 13.4 11.4 - 13.8 % 06/14/2024 2:00 AM [facility] NRBC% auto 0.0 % 06/14/2024 2:00 AM [facility] NRBC Absolute <0.01 <0.01 x10(3)/mc L 06/14/2024 2:00 AM [facility] Neutrophil % 85.7 % 06/14/2024 2:00 AM [facility] Neutrophil Absolute (ANC) - Automated 8.90(H) 1.70 - 6.10 x10(3)/mc L 06/14/2024 2:00 AM [facility] Lymph % 8.4 % 06/14/2024 2:00 AM [facility] Lymph Absolute 0.87(L) 0.90 - 3.20 x10(3)/mc L 06/14/2024 2:00 AM [facility] Monocyte % 4.4 % 06/14/2024 2:00 AM [facility] Monocyte Absolute 0.46 0.30 - 0.90 x10(3)/mc L 06/14/2024 2:00 AM [facility] Eos % 0.5 % 06/14/2024 2:00 AM [facility] Eos Absolute 0.05 0.00 - 0.40 x10(3)/mc L 06/14/2024 2:00 AM [facility] Basophil % 0.2 % 06/14/2024 2:00 AM [facility] Baso Absolute <0.04 0.00 - 0.10 x10(3)/mc L 06/14/2024 2:00 AM [facility] Immature Gran % 0.8 % 2:00 AM [facility] Immature Gran Absolute 0.08(H) 0.00 - 0.04 x10(3)/mc L 06/14/2024 2:00 AM [facility] Blood VENOUS BLOOD SPECIMEN / Unknown Venipuncture / Unknown 06/14/2024 1:03 AM EST 06/14/2024 1:08 AM EST Martinez Reynolds MD HEMATOLOGY ORDERABLE S [facility] [place] [address] * (ABNORMAL) Phosphorus (06/14/2024 1:03 AM EST) Phosphorus 1.5(L) 2.5 - 4.5 mg/dL 06/14/2024 1:46 AM [facility] Blood VENOUS BLOOD SPECIMEN / Unknown Venipuncture / Unknown 06/14/2024 1:03 AM EST 06/14/2024 1:08 AM EST Martinez Reynolds MD CHEMISTRY ORDERABLES [facility] [place] [address] * Magnesium (06/14/2024 1:03 AM EST) Magnesium 0.90 0.69 - 1.07 mMol/L 06/14/2024 1:46 AM [facility] Blood VENOUS BLOOD SPECIMEN / Unknown Venipuncture / Unknown 06/14/2024 1:03 AM EST 06/14/2024 1:08 AM EST Martinez Reynolds MD CHEMISTRY ORDERABLES [facility] [place] [address] * (ABNORMAL) Basic Metabolic Panel (06/14/2024 1:03 AM EST) Glucose 95 65 - 199 mg/dL 06/14/2024 1:49 AM [facility] Comment:Glucose Concentratio n >=200 mg/dL plus symptoms is consistent with Diabetes Mellitus. Blood Urea Nitrogen 14 10 - 20 mg/dL 06/14/2024 1:49 AM [facility] Creatinine 0.80 0.80 - 1.50 mg/dL 06/14/2024 1:49 AM [facility] Sodium 123(L) 135 - 145 mMol/L 06/14/2024 1:49 AM [facility] Potassium 3.7 3.5 - 5.0 mMol/L 06/14/2024 1:49 AM [facility] Chloride 91(L) 98 - 107 mMol/L 06/14/2024 1:49 AM [facility] Carbon Dioxide 19(L) 22 - 31 mMol/L 06/14/2024 1:49 AM [facility] Anion Gap 13 5 - 15 mMol/L 06/14/2024 1:49 AM [facility] Calcium 8.1(L) 8.5 - 10.5 mg/dL 06/14/2024 1:49 AM [facility] Est Glomerular Filtration Rate - Male 120 mL/min/1. 73 m?? 06/14/2024 1:49 AM [facility] Comment: This patient's estimated GFR [...] Reynolds MD CHEMISTRY ORDERABLES Performing Organization Address [facility] [place] [place] [address] * (ABNORMAL) Osmolality (06/14/2024 1:03 AM EST) Osmolality 259(L) 275 - 295 mOsm/kg 06/14/2024 1:[address] [facility] Blood VENOUS BLOOD SPECIMEN / Unknown Venipuncture / Unknown 06/14/2024 1:03 AM EST 06/14/2024 1:08 AM EST Mariola Alfred MD CHEMISTRY ORDERABLES Performing Organization Address [facility] [place] [address] * T3 Total (06/14/2024 1:03 AM EST) T3 Total 87 80 - 200 ng/dL 06/14/2024 1:[address] [facility] Blood VENOUS BLOOD SPECIMEN / Unknown Venipuncture / Unknown 06/14/2024 1:03 AM EST 06/14/2024 1:08 AM EST Mariola Alfred MD CHEMISTRY ORDERABLES Performing Organization Address [facility] Co de Phone Number [facility] [place] [address] * T4, free (06/14/2024 1:03 AM EST) Free T4 1.37 0.93 - 1.70 ng/dL 06/14/2024 1:[address] [facility] Blood VENOUS BLOOD SPECIMEN / Unknown Venipuncture / Unknown 06/14/2024 1:03 AM EST 06/14/2024 1:08 AM EST Mariola Alfred MD CHEMISTRY ORDERABLES Performing Organization Address [facility]/ZIP Co de Phone Number [facility] [place] [address] * Zonisamide level (06/14/2024 1:03 AM EST) Zonisamide Lvl November 17 10 - 40 mcg/mL 06/16/2024 9:22 PM EST REF LAB [place] Comment: ADDITIONAL INFORMATION This test was developed and its performance characteristics determined by [facility] in a manner consistent with CLIA requirements. This test has not been cleared or approved by the U.S. Food and Drug Administration. Blood VENOUS BLOOD SPECIMEN / Unknown Venipuncture / Unknown 06/14/2024 1:03 AM EST 06/14/2024 1:08 AM EST Narrative REF LAB [facility] 06/16/2024 9:22 PM EST Test Performed by: [facility] [place] [address] Physical Medicine Physician: Xavier Velásquez Ph.D.; CLIA# [id number] Mariola Alfred MD LAB SEND OUT ORDERAB LES REF LAB [id number] [place] [address] documented in this encounter Visit Diagnoses Not [...] 2 mg, Oral, NIGHTLY, First dose on 06/14/24 [...] Amezcua RN)1511 (Given - Provider: Bell Amezcua RN)2029 (Given - Provider: Erik Dumont RN) 08 (Given - Provider: Bell Amezcua RN)1548 (Given - Provider: Bell Amezcua RN)2013 (Given - Provider: Erik Dumont RN) 09 (Given - Provider: Bell Amezcua RN)1500 (Due) desmopressin (Ddavp) tablet 0.1 mg 0.1 mg, Oral, DAILY, First dose on Fri06/14/24 at 0900, Until Discontinued, Routine 0944 (Given - Provider: Bell Amezcua RN) 0835 (Given - Provider: Bell Amezcua RN) 09 (Given - Provider: Bell Amezcua RN) desmopressin [...] Bell Amezcua RN)2029 (Given - Provider: Erik Dumont RN) 08 (Given - Provider: Bell Amezcua RN)2013 (Given [...] Amezcua RN) 1756 (Given - Provider: Bell Amezcua, HEATHER) montelukast (Singulair) tablet 10 mg 10 mg, [...] Ann 06/17/24 at 2100, Until Discontinued, Routine 899 (Not Given - Provider: Bell Amezcua RN - Reason: Order parameters not met)2044 (Given - Provider: Erik Dumont RN) 09 (Not Given - Provider: Bell Amezcua [...] 09 (Given - Provider: Bell Amezcua RN) QUEtiapine [...] Discontinued, Hold for loose stool. , Routine 09 (Not Given - Provider: Bell Amezcua RN - Reason: Patient/family refused)2044 (Given - Provider: Erik Dumont RN) 09 (Not Given - Provider: Bell Amezcua [...] other PRN pain medications are ordered., Routine 1614 (Given - Provider: Bell Amezcua RN) 0027 (Given - Provider: Erik Dumont, RN)2013 (Given [...] RN) 29 (Given - Provider: Erik Dumont, HEATHER)3 (Given - Provider: Erik Dumont, RN) lactulose (Chronulac) (0.67 gram/mL) oral liquid [...] Vomiting documented in this encounter Care Teams Dumpster Operator Relationship Specialty Start Date End Date Ren Vaz MD PCP - General Family Medicine 06/02/20 06/17/24 documented as of this encounter
--- OUTSIDE RECORDS SUMMARY | 2024-07-22 13:52 | XMS_ITS | Encounter Summary ---
Author Organization [facility] [place] [address] Care Team Providers Care Volunteer Assistant Name Role Phone Lc Venegas Primary Care Provider [phone] Encounter Details Date Type Department Care Team (Late st Contact Info) Description 03/21/2019 2:40 PM EDT Ancillary Procedure Radiology Library at [facility] [place] [address] Pedro Colon MD [facility] [place] [address] Social History Tobacco Use Types Packs/Day Years [...] CT Head (03/21/2019 2:37 PM EDT) Narrative [facility] - 03/21/2019 2:37 PM EDT This exam is auto-finalizing. It's purpose is for storage only. Pedro Colon MD IMG FILM LIBRARY O RDERABLES [place], [place] documented in this encounter Visit Diagnoses Not on filedocumented in this encounter Care Teams Volunteer Assistant Relationship Specialty Start Date End Date Lc Venegas PA [address] [place] [address] PCP - General General Internal Medicine 09/03/17 documented as of this encounter
--- OUTSIDE RECORDS SUMMARY | 2024-07-22 13:52 | XMS_ITS | Encounter Summary ---
Author Organization [facility] [place] [address] Care Team Providers Care Billing Spec Name Role Phone Subha Colon MAX Primary Care Provider [phone] Reason for Referral * Diagnostic Test (Routine) - Closed Specialty Diagnoses / Procedures Referred By Contac t Referred To Contact Radiology Diagnoses Growth hormone deficiency Fracture Procedures DXA Central Spine, Hip, and/or Whole Body (Generic) Wilder Zaidi DO [address] [place] [phone] [facility] [employer] Xray [address] [place] [address] [place] [address] Referral ID Status Reason Start Date Expiration Date V isits Requested Visits Authorized [id number] Closed Specialty Service Requested 05/26/2019 05/25/2020 1 1 Reason for Visit * Diagnostic Test (Routine) - Closed Specialty Diagnoses / Procedures Referred By Contac t Referred To Contact Radiology Diagnoses Growth hormone deficiency Fracture Procedures DXA Central Spine, Hip, and/or Whole Body (Generic) Wilder Zaidi DO [address] [place] [address] [facility] Rad Xray [address] [place] [address] Referral ID Status Reason Start Date Expiration Date V isits Requested Visits Authorized [id number] Closed Specialty Service Requested 05/26/2019 05/25/2020 1 1 Encounter Details Date Type Department Care Team (Latest Contact Info) Description 06/21/2019 10:30 AM EST - 06/21/2019 11:59 PM [facility] Encounter XRay at [address] [place] [address] Wilder Zaidi, DO [address] [place] [phone] Growth hormone deficiency; Fracture Discharge Disposition: [...] needed for incontinence 90 each 3 03/11/2018 aspirin 81 mg Tablet, Chewable Take [...] by mouth every morning. 90 tablet 03/12/2018 melatonin 3 mg Tablet Take 3 [...] times daily as needed. 60 tablet 03/11/2018 cyclobenzaprine (FLEXERIL) 5 mg Tablet Take 5 mg by mouth 3 times daily as needed for Muscle spasms. 11/01/2021 bisacodyl (DULCOLAX) [address] 1 suppository rectally daily as needed. 60 suppository 3 03/11/2018 11/01/2021 desmopressin (DDAVP) 0.1 mg Tablet Take 1.5 tablets by mouth nightly. 30 tablet 3 03/11/2018 07/20/2024 metoprolol succinate (TOPROL-XL) 25 mg Tablet Sustained [...] BMD measurements and plots are available in EWashio under the imaging tab. Paper copies will be sent to providers without E- access. If you have received this report without the data sheet and do not have access to [employer], please contact Radiology Shopping Centre Manager at [phone] Friday thru Friday 8am-4pm. ?? Thank you for letting us participate in the care of this patient. For questions regarding this report, please contact the number below. ? Narrative 06/24/2019 7:15 PM EST EXAMINATION: DXA CENTRAL SPINE, HIP, AND/OR WHOLE BODY (GENERIC) CLINICAL HISTORY: group home steroid use, low testosterone, history of fracture, per ordering provider TECHNIQUE: Scans were acquired at the lumbar spine, and right hip. 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 Paper copies will be sent to providers without [employer] access.If you have received this report without the data sheet and do not haveaccess to E-, please contact Radiology Shopping Centre Manager at [phone] Friday thr 8am-4pm. Thank you for letting us participate in the care of this patient. Forquestions regarding this report, please contact the number below. Wilder Zaidi DO IMG DEXA ORDERABLES documented in this encounter Visit Diagnoses Diagnosis Growth hormone deficiency Pituitary dwarfism Fracture Closed fracture of unspecified bone documented in this encounter Care Teams Billing Spec Relationship Specialty Start Date End Date Subha Colon APRN [address] [place] [address] PCP - General Family Medicine 04/30/19 06/01/20 documented as of this encounter
--- OUTSIDE RECORDS SUMMARY | 2024-07-22 13:52 | XMS_ITS | Encounter Summary ---
Author Organization [facility] [place] [address] Care Team Providers Care Goods Layer Name Role Phone Lc Venegas Primary Care Provider [phone] Encounter Details Date Type Department Care Team (Late st Contact Info) Description 09/11/2018 Telephone Endocrinology at [facility] [place] [id number] Thuy Chu RN Social History Tobacco Use [...] EST Msg from Jessika Woodall NP at [facility], left msg that pt is doing well, possible aspiration pneumonia. Would like call back on how to proceed with steroid dosing and taper. [phone] and have hospitalist paged. documented in this encounter Plan of Treatment Not on file documented as of this encounter Visit Diagnoses Not on filedocumented in this encounter Care Teams Goods Layer Relationship Specialty Start Date End Date Lc Venegas PA [address] [place] [address] PCP - General General Internal Medicine 09/03/17 documented as of this encounter
--- OUTSIDE RECORDS SUMMARY | 2024-07-22 13:52 | XMS_ITS | Encounter Summary ---
Author Organization [facility] [place] [address] Care Team Providers Care Data Entry Machine Operator Name Role Phone Jimbo More Primary Care Provider + Encounter Details Date Type Department Care Team (Late st Contact Info) Description 06/14/2024 9:50 AM EST Ancillary Procedure Radiology Library at [facility] [place] [address] Social History Tobacco Use Types Packs/Day Years Used Date Smoking Tobacco: Never Smokeless Tobacco: Never Alcohol Use Standard Drinks/Week Comments No 0 (1 standard drink = 0.6 oz pur e alcohol) [facility] Utilities Answer Date Recorded In the [...] time in the past 12 m [facility], were you homeless or living in a skilled nursing (including now)? No 2024 IPV Inpatient Questions [...] Head (06/14/2024 9:46 AM EST) WORKSTATION ID [id number] RAD Anatomical Region Laterality Modality Head SO [...] who have questions please contact the health childcare director that requested your imaging first. ? Electronically signed by: MATEO Smart [facility] ([phone]), at 06/14/2024 10:41 AM Narrative 06/14/2024 10:41 AM EST EXAMINATION: REQUEST FOR 2ND READ CT HEAD CLINICAL HISTORY: New seizure with known mass, ?enlargening. Presenting with seizure; Sending Institution [facility]; Date of exam 20240613; I believe a reinterpretation of this exam may alter care of Patient. Yes TECHNIQUE: Reinterpretation of noncontrast CT head performed at [facility] 06/13/2024 at 2143 hours COMPARISON: Noncontrast [...] known mass, ?enlargening. Presentingwith seizure; Sending Institution [facility]; Date of exam [id number]; I believe a reinterpretation of this exam may alter care of Patient. Yes TECHNIQUE: Reinterpretation of noncontrast CT head performed at [facility] 06/13/2024 at 2143 hours COMPARISON: Noncontrast [...] patients who have questions please contactthe health childcare director that requested your imaging first. Lexie Osullivan COAL TRAMMER IMG OUTSIDE INTERP RETATION ORDERABLES documented in this encounter Visit Diagnoses Not on filedocumented in this encounter Care Teams Data Entry Machine Operator Relationship Specialty Start Date End Date Jimbo More PA [facility] [place] [address] PCP - General Internal Medicine 06/18/24 documented as of this encounter
--- OUTSIDE RECORDS SUMMARY | 2024-07-22 13:57 | XMS_ITS | Encounter Summary ---
Author Organization [facility] [place] [address] Care Team Providers Care Manager Drilling Name Role Phone Lc Venegas Primary Care Provider [phone] Reason for Visit * Auth/Cert Specialty Diagnoses / Procedures Referred By Duyen t Referred To Contact Diagnoses Acetabular fracture Left acetabulum fracture Procedures @OPEN TREATMENT, ACETABULAR FX (WRVU 25.41) Referral ID Status Reason Start Date Expiration Date Visits Re quested Visits Authorized [id number] 1 1 Encounter Details Date Type Department Care Team (Late st Contact Info) Description 10/20/2017 11:43 [place] [address] Asia Mota MD [facility] [place] [address] Marvin Vasquez CRNA Anesthesia Record Procedure Summary [...] 0939; metacarpal vein (top of hand), left; pyyp-qpr-swoayc catheter system; 20 gauge; distraction, intradermal injection, [...] Mota MD - 10/21/2017 7:39 AM EDT [facility] Department of Anesthesiology Post-procedure Note Patient: Miguel Angel Burgos Procedure Summary Date Anesthesia Start Anesthesia Stop Room / Location 10/20/17 1143 1203 [facility] ADULT RADIOLOGY / [facility] Procedure Diagnosis Surgeon Responsible Provider CT (N/A ) (Broken tooth) RESOURCE, ANESTHESIA-Asia Santiago MD All Anesthesia Providers: Anesthesiologist: Asia Mota MD PRODUCTION UNDERWRITER: Echo Lema CRNA Most Recent Vitals: 10/20/17 [...] History: Procedure Laterality Date ??? PRO OPEN BILL BOARD POSTER FIX ACETABULAR FX Left 09/04/2017 @OPEN TREATMENT, ACETABULAR FX (WRVU 25.41) performed by Amy Lance MD at [facility] MAIN OR Social History Substance Use [...] discussed with legal guardian. Plan discussed with PRODUCTION UNDERWRITER. PAT Staff Note documented in this encounter [...] /hr documented in this encounter Care Teams Manager Drilling Relationship Specialty Start Date End Date Lc Venegas PA [address] [place] [address] PCP - General General Internal Medicine 09/03/17 documented as of this encounter
--- OUTSIDE RECORDS SUMMARY | 2024-07-22 13:57 | XMS_ITS | Encounter Summary ---
[place] [address] Care Team Providers Care Customer Counter Representative Name Role Phone Lc Venegas Primary Care Provider [phone] Reason for Visit * Auth/Cert Specialty Diagnoses / Procedures Referred By Duyen t Referred To Contact Diagnoses Acetabular fracture Left acetabulum fracture Procedures @OPEN TREATMENT, ACETABULAR FX (WRVU 25.41) Referral ID Status Reason Start Date Expiration Date Visits Re quested Visits Authorized [id number] 1 1 Encounter Details Date Type Department Care Team (Late st Contact Info) Description 09/04/2017 9:22 AM EST Anesthesia Event [place] [address] Delfino Chavez MD [facility] DR [place] [address] Irving Loja MD Anesthesia Record Procedure Summary [...] without issue. VSS. Full report given to LAMINATION BUILDER. 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 aware.) 09/02/17 [...] Time: 1257 09/04/17 0931 by Cele Carrington CRNA 09/04/17 1257 by Delfino Chavez MD (RETIRED) Peripheral IV Line - Single Lumen 09/04/17; 0940; metacarpal vein (top of hand), left; pcfu-olu-conhev catheter system; 16 gauge; MD Scott; 0; Removed by patient; 09/04/17; 2200 09/04/17 0940 by Cele Carrington CRNA 09/04/17 2200 by [place] Malin RN Arterial Line 09/04/17; 0950; radi al artery, right; 20 gauge; Cele Fabian CRNA; Sterile Prep, Sterile Gloves; 09/04/17; 1428 09/04/17 0950 by Cele Carrington CRNA 09/04/17 1428 by Germaine Jaimes RN Incision [...] Chavez MD - 09/04/2017 2:08 PM EST [facility] Department of Anesthesiology Post-procedure Note Patient: Miguel Angel Burgos Procedure Summary Date Anesthesia Start Anesthesia Stop Room / Location 09/04/17 0922 1309 [facility] OR / [facility] MAIN OR Procedure Diagnosis Surgeon Responsible Provider @OPEN TREATMENT, ACETABULAR FX (WRVU 25.41) (Left Pelvis); MODIFIER SMALL FRAGMENT SYNTHES (N/A ); MODIFIER PELVIC RECONSTRUCTION PLATE SYNTHES (N/A ); MODIFIER LARGE FRAGMENT SYSTEM SYNTHES (N/A ) (Left acetabulum fracture) Amy Lance MD Spence, Brian C, MD All Anesthesia Providers: Anesthesiologist: Delfino Chavez MD MORALE OFFICER: Cele Fabian CRNA Most Recent Vitals: 09/04/17 [...] Anesth hx: None on record Labs: 09/04/17 09/03/178 0054 WBC 10.5* 9.1 HGB 12.4* 14.8 [...] discussed with legal guardian. Plan discussed with MORALE OFFICER. PAT Staff Note documented in this encounter [...] Ann 09/04/17 at 0948, Until Jo Ann 318 at 1311, Pain, Anesthesia Intra-op, Routine Given [...] Ann 09/04/17 at 0922, Until Jo Ann 3 at 1311, Anesthesia [...] Units documented in this encounter Care Teams Customer Counter Representative Relationship Specialty Start Date End Date Lc Venegas PA [address] [place] [address] PCP - General General Internal Medicine 09/03/17 documented as of this encounter
--- OUTSIDE RECORDS SUMMARY | 2024-07-22 13:57 | XMS_ITS | Encounter Summary ---
Author Organization [facility] Address [facility] [place] [address] Care Team Providers Care Field Support Engineer Name Role Phone Corin Skinner MD Primary Care Provider [phone] Encounter Details Date Type Department Care Team (Latest Contact Info) Description 09/02/2017 - 09/02/2017 12:04 AM [facility] Hospital Encounter Radiology Library at [facility] [address] Neo Gar MD Discharge Disposition: Home Social [...] daily as needed. 60 tablet 3 03/11/2018 bisacodyl (DULCOLAX) 10 mg Suppository [...] Gar MD IMG FILM LIBRARY OR DERABLES [place], [place] documented in this encounter Visit Diagnoses Not on filedocumented in this encounter Care Teams Field Support Engineer Relationship Specialty Start Date End Date Corin Skinner MD PCP - General 05/29/10 09/02/17 documented as of this encounter
--- OUTSIDE RECORDS SUMMARY | 2024-07-22 13:57 | XMS_ITS | Encounter Summary ---
[place] [address] Care Team Providers Care Quality Worker Name Role Phone Lc Venegas Primary Care Provider [phone] Reason for Visit * Reason Comments Hospital Transfer hip fracture from [facility] * Auth/Cert Specialty Diagnoses / Procedures Referred By Duyen bui Referred To Contact Diagnoses Acetabular fracture Left acetabulum fracture Procedures @OPEN TREATMENT, ACETABULAR FX (WRVU 25.41) Referral ID Status Reason Start Date Expiration Date Visits Re quested Visits Authorized [id number] 1 1 Encounter Details Date Type Department Care Team (Late st Contact Info) Description 10/20/2017 9:00 AM EDT - 10/20/2017 9:30 [place] [address] RESOURCE, ANESTHESIA-FORT STEWART None CT Social History Tobacco Use Types [...] level in 3 days after discharge from [facility], if out of range, [facility] for further instructions regarding [...] MD): This is a 27 y.o. male half-way resident with a history of panhypopituitarism, DI, [...] over the phone, so she had his local flatbed driver take him to the hospital. At [facility], when asked about pain he would point to his left knee. Ultimately, CT was performed which showed acute leftacetabular fracture and osteopenia. He received several doses of morphine, dilaudid, and ativan forpain and sedation prior to transfer. ?? He has not had a seizure for about 4 years. No recent med changes according to Bettina. Labs at [facility] remarkable for Na 132. In the ER [...] by orthopedics. Due to restrictions in his half-way environment, he could not return home to [...] measurements, with the assistance of the endocrinology tea m. # TWI T-wave inversions were found incidentally [...] ED to Hosp-Admission (Current) from 09/02/[address] [place] [address] Weight 98.4 kg (216 lb 14.4 oz) [...] tablet Refills: 3 Diaper,Brief, Adult,Disposable Misc Daily 27/01 as needed for incontinence Quantity: 90 each [...] to navigate stairs Questions: Vendor Name/Contact information: [facility] Bed (Outpatient) [EQ172 Custom] As directed Process Instructions: Scheduling Instructions: Comments: Semi-electric Hospital Bed- The patient has a medical condition which requires positioning of the body in ways not feasible with an ordinary bed and requires frequent changes in body position and/or has an immediate need for a change in body position. Questions: Vendor Name/Contact information: [facility] Wheelchair [EQ139 Custom] As directed Process Instructions: [...] please contact your inpatient physician through the [facility] Transition Program Manager . Issues afterhours and on weekends will [...] as needed for incontinence 90 each 03/11/2018 aspirin 81 mg Tablet, Chewable Take [...] Pt is [facility]. Pt did not have IV access. Pt AVS, discharge summary, and medication were sent to facility. Called facility to give report. * Lauren Gloria - 03/12/2018 1:25 PM EDT Patient was transported today [facility] at 1330 to [facility]. * Tricia Gerber RN - 03/12/2018 1:25 PM EDT Patient being discharged [facility] today via ambulance. Spoke with sister Bettina- she was in agreement with plan. [facility] will be delivering all needed DME tomorrow morning apx. 9am. Landscape Laborer has reviewed DME list with Asael at [facility] to determine what DME must be had today to ensure a safe transfer. It was determined the only have to item for today is the wheelchair. [facility] Customer Account Specialist has given approval for [facility] to provide one of ours until the one from [facility] arrives (Asael to coordinate return with freelance copywriter). Bhakti Lavfeng from [facility] has picked up all meds and depends from pharmacy. Nursing staff has provided Bhakti with the testosterone gel, bed guillen and urinal. She also has hard copies of discharge summary and AVS. No other discharge needs have been identified. Tricia Gerber RN Case Flexographic Press Set Up Operator of Care Management [email or web address] Pager: [phone] * Tricia Gerber RN - 03/12/2018 1:25 PM EDT Received call from Bhakti Riojas at [facility] . Bhakti requests referral to: [facility]. PHONE: [phone] FAX: [phone] Patient lives at: [address] [facility] [address] Phone [phone] Fax [phone] Expected date of discharge: 03-12-18. Referral routed to the Assistant Center Director for matching with agency/vendor and to provide any required information. Tricia Gerber RN Case Flexographic Press Set Up Operator of Care Management [email or web address] Pager: [phone] * Dario Gallegos MD - 03/12/2018 11:00 [...] spent >30 minutes (Day of Discharge Code 65965) involved in the final examination of the patient, discussion of the hospital stay, instructions for continuing care to all relevant caregivers, and preparation of discharge records, prescriptions and referral forms. Plans ? [facility] ? Follow-up scheduled with pscychiatry ? Please see the Discharge Summary for complete details of any medication changes and additional plans. * Tricia Gerber RN - 03/12/2018 8:49 AM EDT Received voicemail from Bettina Sweettomy (Guardian/sister). States she is aware that Miguel Angel will be [facility] Address [address] [place] [address] [address] [facility] [address] Tricia Gerber RN Case Flexographic Press Set Up Operator of Care Management [email or web address] Pager: [phone] * Tricia Gerber RN - 03/11/2018 4:46 PM EDT Plan for discharge tomorrow 03-12-18: - Scripts have been ordered, filled, and ready for shredder picker at [facility] (except those noted below) o Depends were ordered but not covered by insurance, they are available at [facility] pharmacy for purchase o Testosterone cream requires a prior authorization, we have submitted for prior authorization. We will send him with tube that is currently being utilized in the hospital. - Urinal and bed guillen will be sent with R.B. upon discharge (if Bhakti wants to get these items from nurses station when she comes to shredder picker medications that is also an option) - Wheelchair, commode and hospital bed have been ordered through [facility]. Their [place] office will be delivering these items and have been given [facility] contact information for coordination of the delivery. - Ambulance has been confirmed for pick-up at 1:30pm - Discharge Summary o Hard copy will be sent with patient in envelope o Fax copy will also be sent to [phone] Called patients sister Bettina [phone] (work#1) she was gone for the day [phone] (cell) left voice mail [phone] (work#2) she was not scheduled today Tricia Gerber rn ccu Office of Care Management [email or web address] Pager: [phone] * Echo Hanson RN - 03/11/2018 3:57 PM EDT Continuing to support complex d/c planning on behalf of care management. Received call back from [facility] GROUNDS FOREMAN Kris Back, discussed with him the importance [...] advocated to transfer DS services to another [facility] where client's needs could have been met sooner. Also relayed concern about communication delays from [facility]. Recvd calls from Carissa Albino [phone] confirming patient's plan for d/c to [facility] tomorrow via ambulance, and that [facility] staff are visiting patient today to retrieve DME and medications to prepare patient for tomorrow. Recvd call from Rob, contracts attorney at [place] [employer] to check patient status. Returned his call [phone] with update as above. Confirmed with primary RN LUCAS Clarke that DME, medications are ordered and in process of retrieval with [facility], and that ambulance will be arranged for early afternoon 03/12. Continue to be available for complex discharge planning needs on behalf of care mangement. Echo Hanson, RN, MSN, ACM Md Senior Research Scientist - Care Management [phone] / [phone] pager [phone] [email or web address] * Dario Gallegos MD - 03/11/2018 12:14 PM EDT [facility] Medicine Attending Inpatient Daily Progress Note Admit [...] Awaiting placement Primary Care Provider: NAKIA Cifuentes [phone] Inpatient Certification Attestation: IPI Certification I certify that I am a D-H credentialed attending provider with admitting privileges and that the patient meets or has met medical necessity to require an inpatient IPI level of care meeting a minimumof two midnights or is on the [facility] inpatient only procedure list (status C) due to: the patient has met Inpatient IPI criteria and is awaiting rehabilitation or [place] facility placement withactive referrals in process DARIO GALLEGOS MD Team Pager(MD Coverage 27/01): #[phone] 03/11/2018 * Dario Gallegos MD - 03/10/2018 5:49 PM EDT [facility] Medicine Attending Inpatient Daily Progress Note Admit [...] Awaiting placement Primary Care Provider: NAKIA Cifuentes [phone] Inpatient Certification Attestation: IPI Certification I certify [...] IPI criteria and is awaiting rehabilitation or [place] facility placement withactive referrals in process DARIO GALLEGOS MD Team Pager(MD Coverage 27/01): #[phone] 03/10/2018 * Mavis Solo, MECHANICAL LEAD - 03/10/2018 3:27 PM EDT MECHANICAL LEAD received a return call from Asael Valdez at [facility]. Per Asael, after his evaluation of Miguel Angel on Friday, he feels that his needs can be met at their [place] bed. Asael informed this worker that his role is to determine if the pt.'s needs can be met safely, and then he informs Naheed Estrella whether or not the needs can be met safely. Naheed then decides to offer the bed, and Asael informs Lillian (Miguel Angel's [facility] worker) who then coordinates the transfer. Asael confirmed that he has left a voice message for Lillian informing her that Miguel Angel is appropriate for their [place] bed, and that the bed is available. He is awaiting a response from Lillian. JAMSHID Enamorado Pager: [phone] * Mavis Solo MSW - 03/10/2018 2:02 PM EDT MECHANICAL LEAD left a voice message for Asael Courtney (cell: [phone]) at [facility] ([facility]) to check on bed availability. Awaiting a return call. JAMSHID Enamorado Pager: [phone] * Jazzmine Charlton, RD - 03/10/2018 1:19 PM EDT Nutrition Progress Note Miguel Angel Mason is a 27 y.o. male Reason for intervention: Follow up Nutrition Recommendations: Recommend continuation of current diet order Consider daily multivitamin w/ minerals, Vit D and Calcium given alf steroid use Sitters please assist patient with [...] Orders Diet Daily Healthy Menu Choices/Cardiac diet ([facility]-Diet) 2000 mL FLUID Frequency: Effective Now Number of Occurrences: Until Specified Admit Weight: 86.64 kg Estimated body mass index is 31.12 kg/(m^2) as calculated from the following: Height as of this encounter: 177.8 cm (5' 10). Weight as of this encounter: 98.4 kg (216 lb 14.4 oz). [place] body weight: 73 kg (160 lb 15 [...] content of every food available. Discussed with PHARMACY DIRECTOR attempting to encourage patient to eat lean proteins, low-fat dairy, complex carbohydrates, and avoid concentrated sweets and high-fat foods. Worked with PHARMACY DIRECTOR to complete patient's breakfast lunch and dinner menus for tomorrow. Sitter reports that patient eats everything that he is and is not very picky. No further nutrition related questions or concerns at this time. ?? MARIYA Kat * Dina Ca - 03/09/2018 2:15 PM EDT [facility] Encounter Note Patient Name: Miguel Angel Mason : [id number] MR#: [id number] Admit Date: 09/02/2017 9:23 PM Hospital Day 188 days Narrative: Form Tamping Machine Operator visited pt on routine rounds. Assessment: Pt was asleep in his bed, sitter was seated near the bedside. Intervention and Outcome: As pt was asleep, spray painter checked in with sitter on how he was doing. 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 Follow-up: Yes, on routine rounds Time in Direct Care: 5 mins Dina Fuentesstephanie 03/09/2018 * Gabriella Maher MD - 03/09/2018 8:21 AM EDT [facility] Medicine Attending Inpatient Daily Progress Note Admit [...] Intake/Output Summary (Last 24 hours) at 03/09/18 0821 Last data filed at 03/08/18 1800 Gross [...] Awaiting placement Primary Care Provider: NAKIA Cifuentes [phone] Inpatient Certification Attestation: IPI Certification I certify that I am a D-H credentialed attending provider with admitting privileges and that the patient meets or has met medical necessity to require an inpatient IPI level of care meeting a minimumof two midnights or is on the [facility] inpatient only procedure list (status C) due to: the patient has met Inpatient IPI criteria and is awaiting rehabilitation or [place] health [place] facility placement withactive referrals in process Gabriella Maher MD Team Pager(MD Coverage 27/01): #[phone] 03/09/2018 * Gabriella Maher MD - 03/08/2018 [...] dose (~7.5 mg prednisone equivalent) - recheck SCANNING TECH today # SIRS, resolved - Workup unremarkable [...] Awaiting placement Primary Care Provider: NAKIA Cifuentes [phone] Inpatient Certification Attestation: IPI Certification I certify [...] IPI criteria and is awaiting rehabilitation or [place] facility placement withactive referrals in process Gabriella Maher MD Team Pager(MD Coverage 27/01): #[phone] 03/08/2018 * aGbriella Maher MD - 03/07/2018 4:10 PM EDT [...] dose (~7.5 mg prednisone equivalent) - recheck SCANNING TECH today # SIRS, resolved - Workup unremarkable [...] Awaiting placement Primary Care Provider: NAKIA Cifuentes [phone] Inpatient Certification Attestation: IPI Certification I certify [...] IPI criteria and is awaiting rehabilitation or [place] health [place] facility placement withactive referrals in process Gabriella Maher MD Team Pager(MD Coverage 27/01): #[phone] 03/07/2018 * Echo Hanson RN - 03/06/2018 5:18 PM EDT Continuing to support complex discharge planning on behalf of care management. For additional care management dept discharge planning efforts, see notes. Recvd information that patient may have [facility] (vs [facility]) placement setup (equipped home and care team) and that patient's DS budget is under review by [facility] leadership. Called [facility] and left , received call back from Carissa Posada who confirmed that a plan has been proposed, including a lease agr eement and budget and it is awaiting leadership approval. She agrees to have [facility] leadership return call to share further details about lack of signoff. Call placed to [place] [employer], gave update re: above to contracts attorneyaustin Rivas who is following hissituation. He plans to call pt's guardian (sister Bettina) to obtain approval to continue to work ontheir behalf, will call with updates. Call placed to [place] [employer] Director for Disability Services Georgia Jones to update with above information. She, too, will continue to advocate for [facility] to signoff on patient's budgetand clear the path to his custodial placement. HEATHER Clarke updated. Will continue to follow and advocate on patient's behalf. Will return 03/10. Echo Hanson RN, MSN, ACM Md Senior Research Scientist - Care Management [phone] / [phone] pager [phone] [email or web address] * Tricia Gebrer RN - 03/06/2018 4:56 PM EDT The patient/circulation representative has been provided a list of Home Health Agencies/DME vendors which servetheir preferred geographic area. A letter describing our affiliations was reviewed with them and they were educated about their right to choose where referrals are placed. Patient requests referral to [facility] for wheelchair and walker. Expected date of discharge: 03-10-18. Referral routed to the Assistant Center Director for matching with agency/vendor and to provide any required information. Tricia Gerber RN Case Flexographic Press Set Up Operator of Care Management [email or web address] Pager: [phone] * Tricia Gerber RN - 03/06/2018 4:27 PM EDT Lillian Holcomb from [facility] Human Services and another circulation representative came to visit with Miguel Angel today and meet with [facility]. [facility] circulation representative Asael Valdez [phone] visited with patient, [facility] staff, and [facility] staff today. Charge nurse reviewed Miguel Angel's case/needs. [facility] to be in contact with [facility] on Saturday 03/10 regarding their tentative plan to accept. He was given pager number for attending should their psychiatrist have any questions regarding medications. We determined that patient will need wheelchair and walker for discharge. Landscape Laborer will place order with [facility] for these items. Miguel Angel may also need hospital bed or rails added to bed at [facility]. Lashell discuss further with management at [facility] as bed rails may be considered a restraint and not allowed by the [facility]. Lillian reports that she did speak with Bettina Mason (Guardian/sister), she is in agreement with plan and would like to be present at time of transfer. Case management will continue to follow and assist with discharge planning needs. Tricia Gerber RN Case Flexographic Press Set Up Operator of Care Management [email or web address] Pager: [phone] * Reba Linton MD - 03/06/2018 1:59 PM EDT [facility] Medicine Attending Daily Progress Note Patient Description: [...] Labs Recent Labs 03/05/18 1419 03/04/18 0753 03/03/18 [...] molar - Non-urgent extraction as outpatient Diet [facility] Healthy Diet Discharge planning Awaiting placement, medically ready for discharge. CM working hard to secure placement Lines/Access None Morse catheter None DVT Prophylaxis None, patient is ambulatory Code status FULL Team Pager [phone] PCP NAKIA Cifuentes Attestation IPI Certification I [...] IPI criteria and is awaiting rehabilitation or [place] facility placement withactive referrals in process REBA LINTON MD * Tricia Gerber RN - 03/05/2018 5:36 PM EDT Called and spoke with Bettina Mason (Guardian/sister) [phone] (W). Reviewed details of meeting held today and plan for evaluation by [facility]. She reports that she would have liked [...] from whom she believes was Lillian from [facility]. States Lillian left hercell phone number and she wanted to call and talk to Lillian to learn more about [facility]. Miguel Angel gettingout is great news, but also very nerve wrecking. She agreed to call freelance copywriter back after talking with Lillian. Case management will continue to follow. Tricia Gerber RN Case Flexographic Press Set Up Operator of Care Management [email or web address] Pager: [phone] * Mavis Solo, MECHANICAL LEAD - 03/05/2018 2:55 PM EDT Care Conference call held with Hilton Barker- fryline attendant, Tricia- Grease Maker, Echo [employer] Dean, Dr. Goldstein, this worker, and multiple staff at [facility], and Naheed Estrella from [facility] to discuss Miguel Angel's medical status, behavioral tendencies, and needs for [facility] placement. All questions from participating parties appeared to have been answered. Per Asael Ferrer from [facility] will be coming to to see Miguel [...] and assist as appropriate. JAMSHID Enamorado Pager: [phone] * Reba iLnton MD - 03/05/2018 8:53 AM EDT [facility] Medicine Attending Daily Progress Note Patient Description: [...] molar - Non-urgent extraction as outpatient Diet [facility] Healthy Diet Discharge planning Awaiting placement, medically ready for discharge. CM working hard to secure placement Lines/Access None Morse catheter None DVT Prophylaxis None, patient is ambulatory Code status FULL Team Pager [phone] PCP NAKIA Cifuentes Attestation IPI Certification I [...] IPI criteria and is awaiting rehabilitation or [place] facility placement withactive referrals in process REBA LINTON MD * Shruti Lozoya, RN - 03/05/2018 2:05 AM EDT 03/03/18-03/04/18 [id number] Patient not wearing continuous masimo due to [...] to be medically ready and appropriate for half-way/shared living provider. See recent nursing and provider notes for care needs. Communication ongoing with [facility] who is planning to arrange [place] with staff. [facility], as the [facility] crisis bed facilitation organization, isconsidering admitting patient to crisis bed shortterm with plan to transfer to [facility] setup. Recvd communication from [facility] they are now planning to do onsite visit to assess appropriateness ofcrisis bed placement vs gathering information about patient's needs and plan for discharge this week. [facility] will likely not be able to support transfer this week. Given patient's overall situation, crisis placement may not be therapeutic for patient as it can have frequent admits/discharges and disruptions for client, and he would endure another transition once a permanent placement is secured. Due to protracted planning with both [facility] and [facility], call placed to [place] [facility] ([facility] [employer] trade organization for the Designated MH Agencies) Director of MH services (Prosper Carter) and Director of Dev Services ([place]ia Jones) to review scenario with PHI redacted. [place] will be contacting Carissa Posada with [facility] to encourage increased communication of barriers to discharge. Both agreed with advocacy to [place] [employer] as well as informing patient's guardian that she does have the right to seek DS services in another county. Call placed to [place] [employer] to civil service worker Erlinda [phone] who has passed Guido's case along for review with their contracts attorney. The main concern is protracted non-acute stay for individual with intellectual disabilities. Shared guardian contact information. Call placed to guardian Bettina STAFFORD left at her cell phone # to return call. Plan to update her andensure she is aware of [place] [employer] as a resource as well as her option to seek DS servicesoutside the [facility]. PLAN: - conference call scheduled for 03/05 at 2pm with [facility] and staff - appreciate coordination by PRANEETH pop/ollie to shared living provider or crisis bed if approved by [facility] and/or [facility] - onsite visit by [facility] is the first step and they have not yet agreed to a date/time - continue to advocate for services and support as above Echo Hanson RN, MSN, ACM Md Senior Research Scientist - Care Management [phone] / [phone] pager [phone] [email or web address] * Shruti Lozoya RN - 03/04/2018 4:01 AM EDT 03/03/18-03/04/18 [id number] Patient does not have continuous masimo monitor [...] molar - Non-urgent extraction as outpatient Diet [facility] Healthy Diet Discharge planning Awaiting placement, medically ready for discharge. CM working hard to secure placement Lines/Access None Morse catheter None DVT Prophylaxis None, patient is ambulatory Code status FULL Team Pager [phone] PCP NAKIA Cifuentes Attestation IPI Certification I certify that I am a D-H credentialed attending provider with admitting privileges and that the patient meets or has met medical necessity to require an inpatient IPI level of care meeting a minimumof two midnights or is on the [facility] inpatient only procedure list (status C) due to: the patient has met Inpatient IPI criteria and is awaiting rehabilitation or [place] placement withactive referrals in process REBA LINTON MD * Echo Hanson, RN - 03/03/2018 3:32 PM EDT Continuing to support discharge planning for patient on behalf of care management. Patient medically ready since early October awaiting d/c plan arrangements from [facility]. Patient unableto return to half-way setting due to inability to navigate stairs. ZOYA continues to secure custodial housing and a care team for him in a new residence. Email communication today with Carissa Posada, Chief Intellectual/Developmental Disabilities Services [facility][1] Human Services who is assisting with coordination [...] anticipation of transition to crisis bed in [facility] with ZOYA support 2- 03/05 afternoon phone care conference with ZOYA and team (JAMSHID Dexter coordinating) to discuss daily care needs, meds and discharge transportation 3- discharge to crisis bed in [facility] in care of ZOYA as patient comes from half-way Anticipate discharge soon - unable to confirm date, likely during the week of 03/10. Care Management to continue to follow for d/c needs. Echo Hanson RN, MSN, ACM Md Senior Research Scientist - Care Management [phone] / [phone] pager [phone] [email or web address] * Felecia Moran RN - 03/03/2018 [...] Reason for intervention: Consult Nutrition Recommendations: Recommend [facility] heart healthy diet order to [...] Orders Diet Daily Healthy Menu Choices/Cardiac diet ([facility]-Diet) Frequency: Effective Now Number of Occurrences: Until Specified Admit Weight: 86.64 kg Estimated body mass index is 31.39 kg/(m^2) as calculated from the following: Height as of this encounter: 177.8 cm (5' 10). Weight as of this encounter: 99.2 kg (218 lb 12.8 oz). [place] Body Weight (IBW): [place] body weight: 73 kg (160 lb 15 [...] Linton MD - 03/02/2018 1:12 PM EDT [facility] Medicine Attending Daily Progress Note Patient Description: [...] molar - Non-urgent extraction as outpatient Diet [facility] Healthy Diet Discharge planning Awaiting placement, medically ready for discharge. CM working hard to secure placement Lines/Access None Morse catheter None DVT Prophylaxis None, patient is ambulatory Code status FULL Team Pager [phone] PCP NAKIA Cifuentes Attestation IPI Certification I certify that I am a D-H credentialed attending provider with admitting privileges and that the patient meets or has met medical necessity to require an inpatient IPI level of care meeting a minimumof two midnights or is on the [facility] inpatient only procedure list (status C) due to: the patient has met Inpatient IPI criteria and is awaiting rehabilitation or [place] facility placement withactive referrals in process REBA [...] edge of bed reading chaz potter with PHARMACY DIRECTOR HEENT: Moist mucous membranes Neck: No jugular [...] is ambulatory Code status FULL Team Pager [phone] PCP NAKIA Cifuentes Attestation IPI Certification I certify that I am a D-H credentialed attending provider with admitting privileges and that the patient meets or has met medical necessity to require an inpatient IPI level of care meeting a minimumof two midnights or is on the [facility] inpatient only procedure list (status C) due to: the patient has met Inpatient IPI criteria and is awaiting rehabilitation or [place] facility placement withactive referrals in process REBA LINTON MD * Reba Linton MD - 02/28/2018 3:44 PM EDT [facility] Medicine Attending Daily Progress Note Patient Description: [...] is ambulatory Code status FULL Team Pager [phone] PCP NAKIA Cifuentes Attestation IPI Certification I [...] IPI criteria and is awaiting rehabilitation or [place] facility placement withactive referrals in process REBA LINTON MD * Tricia Gerber RN - 02/27/2018 11:04 AM EDT Received call back from Noel Estrella [phone] PASSR reviewer. She reports that PASSR is not needed unless patient is placed in a group home, which is not an appropriate setting for him. States she has been following case closely with YULISA Quevedo, and all parties involved would like him placed as soon as possible. Reports that they are looking at possible transfer to crisis center when there is a bed opening. Tricia Gerber RN Case Flexographic Press Set Up Operator of Care Management [email or web address] Pager: [phone] * Abimbola Goldstein MD - 02/27/2018 8:20 [...] Bettina Mason, contact information in Facesheet ABIMBOLA E LOUKAS, MD Hospital Medicine Pager [phone] IPI Certification I certify that I am a D-H credentialed attending provider with admitting privileges and that the patient meets or has met medical necessity to require an inpatient IPI level of care meeting a minimumof two midnights or is on the CMS inpatient only procedure list (status C) due to: the patient has met Inpatient IPI criteria and is awaiting rehabilitation or [place] facility placement withactive referrals in process . * Echo Hanson RN - 02/26/2018 4:57 PM EDT Continuing to follow patient's situation to support discharge planning and facilitation by care management. Patient admitted from half-way under Developmental Services in [facility] with [facility] Human Services. Exchanged emails this week with Carissa Posada, Chief of who is supporting Bhakti Riojas and others to secure appropriate housing and supports for him. Recvd email today from Carissa stating they are pending approval from the [facility] [employer] once they identify the leasing cost of a home. She is available tomorrow for a phone checkin and Care Management leadership will call to check in as she will be in the [facility] office [phone] ext [phone]. Guardian has been communicated with by HEATHER Clarke. Care Mgmt leadership to continue to follow and obtain regular updates from ZOY[facility]. Patient requires single-level entry to home which prevents his return to previous living situation. Echo Hanson RN, MSN, ACM-escapement matcher, Care Management [phone] / pager [phone] * Abimbola Goldstein MD - 02/26/2018 8:28 [...] contact information in Facesheet ABIMBOLA GOLDSTEIN MD [facility] Medicine Pager [phone] IPI Certification I certify that I am a D-H credentialed attending provider with admitting privileges and that the patient meets or has met medical necessity to require an inpatient IPI level of care meeting a minimumof two midnights or is on the [facility] inpatient only procedure list (status C) due to: the patient has met Inpatient IPI criteria and is awaiting rehabilitation or [place] facility placement withactive referrals in process . * Tricia Gerber RN - 02/25/2018 4:15 PM EDT Case reviewed in eDH and with interdisciplinary team. Patient was admitted on 09/02 with fractured acetabulum requiring ORIF (09/04). He continues to be medically ready for discharge. Placement has remained challenging. Statewide search for skilled facility has been completed however no bed offers have been received. Left voicemail for Bhakti Riojas, Senior Senior Pensions Administrator for [place] [employer] [phone]. Called [facility] office [phone]. Spoke with Lali. She reports that Noel Estrella is assigned reviewer. States she will email her to check on status and call back. Spoke with Bettina Sweettomy (Guardian/sister) [phone] (H). She reports that she spoke with [employer] last week and they told her they were looking at a new half-way in [place] and a rental property. States this was her last report from them. Tricia Gerber RN Case Flexographic Press Set Up Operator of Care Management [email or web address] Pager: [phone] * Abimbola Goldstein MD - 02/25/2018 12:06 PM EDT Hospital Medicine Attending Daily Progress [...] contact information in Facesheet ABIMBOLA GOLDSTEIN MD Hospital Medicine Pager [phone] IPI Certification I certify that I am a D-H credentialed attending provider with admitting privileges and that the patient meets or has met medical necessity to require an inpatient IPI level of care meeting a minimumof two midnights or is on the [facility] inpatient only procedure list (status C) due to: the patient has met Inpatient IPI criteria and is awaiting rehabilitation or [place] facility placement withactive referrals in process . * Shruti Lozoya, RN - 02/25/2018 4:52 AM EDT 02/24/18-02/25/18 [id number] Patient refusing to wear continuous masimo but does allow spot checks. The reason being the pt is not reliable to maintain safety with the cord continuously attached. Nursing will continue to monitor and will continue to spot check O2 levels with VS. * Abimbola Goldstein MD - 02/24/2018 10:37 AM EDT Hospital Medicine Attending Daily Progress [...] contact information in Facesheet ABIMBOLA GOLDSTEIN MD [facility] Medicine Pager [phone] IPI Certification I certify that I am a D-H credentialed attending provider with admitting privileges and that the patient meets or has met medical necessity to require an inpatient IPI level of care meeting a minimumof two midnights or is on the CMS inpatient only procedure list (status C) due to: the patient has met Inpatient IPI criteria and is awaiting rehabilitation or [place] facility placement withactive referrals in process . * Shruti Lozoya, RN - 02/24/2018 4:48 AM EDT 02/23/18-02/24/18 [id number] Patient refusing to wear continuous masimo. The reason being agitation of pt when wearing it, safety issues. Pt does allow spot checks with VS. Nursing actions taken during this shift to address patient???s refusal included continued educationabout importance of care, importance of O2 monitoring. Will inform MD of any changes, * Abimbola Goldstein MD - 02/23/2018 9:12 AM EDT [facility] Medicine Attending Daily Progress Note Patient Description: [...] contact information in Facesheet ABIMBOLA GOLDSTEIN MD [facility] Medicine Pager [phone] IPI Certification I certify that I am a D-H credentialed attending provider with admitting privileges and that the patient meets or has met medical necessity to require an inpatient IPI level of care meeting a minimumof two midnights or is on the [facility] inpatient only procedure list (status C) due to: the patient has met Inpatient IPI criteria and is awaiting rehabilitation or [place] facility placement withactive referrals in process . * Abimbola Goldstein MD - 02/22/2018 8:45 AM EDT [facility] Medicine Attending Daily Progress Note Patient Description: [...] contact information in Facesheet ABIMBOLA GOLDSTEIN MD [facility] Medicine Pager [phone] IPI Certification I certify that I am a D-H credentialed attending provider with admitting privileges and that the patient meets or has met medical necessity to require an inpatient IPI level of care meeting a minimumof two midnights or is on the [facility] inpatient only procedure list (status C) due to: the patient has met Inpatient IPI criteria and is awaiting rehabilitation or [place] facility placement withactive referrals in process . * Abimbola Goldstein MD - 02/21/2018 10:33 AM EDT [facility] Medicine Attending Daily Progress Note Patient Description: [...] contact information in Facesheet ABIMBOLA GOLDSTEIN MD [facility] Medicine Pager [phone] IPI Certification I certify that I am a D-H credentialed attending provider with admitting privileges and that the patient meets or has met medical necessity to require an inpatient IPI level of care meeting a minimumof two midnights or is on the [facility] inpatient only procedure list (status C) due to: the patient has met Inpatient IPI criteria and is awaiting rehabilitation or [place] facility placement withactive referrals in process . [...] pursuing placement. Have been in contact with [facility][1]. Per email on 02/18 looking at possible rental property Friday. We also have an opening in one of our group homes that may beable to meet his needs, however the director is on vacation until Friday so I cannot make the referral until then.. OCM management is also working with Carissa Posada Chief of Intellectual/Developmental Disabilities Services [facility][1] Human Services. Have requested to set-up weekly review meetings. Left voice mail for Level 2 reviewer at [facility] office [phone]. Request call back to discuss case. Case management will continue to follow and assist with discharge planning needs. Tricia Gerber RN Case Flexographic Press Set Up Operator of Care Management [email or web address] Pager: [phone] * Maldonado Salazar MD - 02/20/2018 12:09 [...] contact information in Facesheet Maldonado Salazar MD [facility] Medicine Pager [phone] IPI Certification I certify that I am a D-H credentialed attending provider with admitting privileges and that the patient meets or has met medical necessity to require an inpatient IPI level of care meeting a minimumof two midnights or is on the [facility] inpatient only procedure list (status C) due to: the patient has met Inpatient IPI criteria and is awaiting rehabilitation or [place] facility placement withactive referrals in process . * Maldonado Salazar MD - 02/19/2018 2:02 PM EDT [facility] Medicine Attending Daily Progress Note Patient Description: [...] contact information in Facesheet Maldonado Salazar MD [facility] Medicine Pager [phone] IPI Certification I certify that I am a D-H credentialed attending provider with admitting privileges and that the patient meets or has met medical necessity to require an inpatient IPI level of care meeting a minimumof two midnights or is on the [facility] inpatient only procedure list (status C) due to: the patient has met Inpatient IPI criteria and is awaiting rehabilitation or [place] facility placement withactive referrals in process . [...] Salazar MD - 02/18/2018 2:13 PM EDT Hospital Medicine Attending Daily Progress [...] contact information in Facesheet Maldonado Salazar MD Hospital Medicine Pager [phone] IPI Certification I certify that I am a D-H credentialed attending provider with admitting privileges and that the patient meets or has met medical necessity to require an inpatient IPI level of care meeting a minimumof two midnights or is on the [facility] inpatient only procedure list (status C) due to: the patient has met Inpatient IPI criteria and is awaiting rehabilitation or [place] facility placement withactive referrals in process . * Tricia Gerber RN - 02/17/2018 5:15 PM EDT Sent email message to Bhakti Riojas- Senior Senior Pensions Administrator with [facility] [employer] [phone].??Request update on status of search for a home. ? Tricia Gerber RN Case Flexographic Press Set Up Operator of Care Management [email or web address] ?Pager: [phone] * Maldonado Salazar MD - 02/17/2018 2:34 [...] contact information in Facesheet Maldonado Salazar MD [facility] Medicine Pager [phone] IPI Certification I certify that I am a D-H credentialed attending provider with admitting privileges and that the patient meets or has met medical necessity to require an inpatient IPI level of care meeting a minimumof two midnights or is on the [facility] inpatient only procedure list (status C) due to: the patient has met Inpatient IPI criteria and is awaiting rehabilitation or [place] facility placement withactive referrals in process . * Maldonado Salazar MD - 02/16/2018 2:46 PM EDT [facility] Medicine Attending Daily Progress Note Patient Description: [...] contact information in Facesheet Maldonado Salazar MD [facility] Medicine Pager [phone] IPI Certification I certify that I am a D-H credentialed attending provider with admitting privileges and that the patient meets or has met medical necessity to require an inpatient IPI level of care meeting a minimumof two midnights or is on the CMS inpatient only procedure list (status C) due to: the patient has met Inpatient IPI criteria and is awaiting rehabilitation or [place] [facility] [place] facility placement withactive referrals in process . * Maldonado Salazar MD - 02/15/2018 2:16 PM EDT [facility] Medicine Attending Daily Progress Note Patient Description: [...] the pod using walker today, made it senior care around before needing wheelchair. No particular complaints. [...] contact information in Facesheet Maldonado Salazar MD [facility] Medicine Pager [phone] IPI Certification I certify that I am a D-H credentialed attending provider with admitting privileges and that the patient meets or has met medical necessity to require an inpatient IPI level of care meeting a minimumof two midnights or is on the [facility] inpatient only procedure list (status C) due to: the patient has met Inpatient IPI criteria and is awaiting rehabilitation or [place] facility placement withactive referrals in process . * Maldonado Salazar MD - 02/14/2018 1:52 PM EDT [facility] Medicine Attending Daily Progress Note Patient Description: [...] contact information in Facesheet Maldonado Salazar MD [facility] Medicine Pager [phone] IPI Certification I certify that I am a D-H credentialed attending provider with admitting privileges and that the patient meets or has met medical necessity to require an inpatient IPI level of care meeting a minimumof two midnights or is on the [facility] inpatient only procedure list (status C) due to: the patient has met Inpatient IPI criteria and is awaiting rehabilitation or [place] [facility] [place] facility placement withactive referrals in process . * Christopher Stanley MD - 02/13/2018 8:01 AM EDT [facility] Medicine Attending Daily Progress Note Patient Description: [...] overnight events Case management reached out to half-way about status of search A few behavioral outbursts overnight with no recent deviation from baseline. Feeling awesome thismorning and listening to [facility]. Good oral intake per nursing staff. Voiding regularly. Havingregular bowel movements. No other symptoms or offered complaints. Physical Exam Temp: [36.6 ??C (97.9 ??F)-36.8 ??C (98.2 ??F)] Heart Rate: [77-84] Resp: [18] BP: (134-143)/(71-75) SpO2: [99 %] Heart Rate from SPO2: -- General: Alert, interactive, responsive to questions, listening to [facility] HEENT: Moist mucous membranes Neck: No evident [...] contact information in Facesheet Christopher Stanley MD Hospital Medicine Pager [phone] IPI Certification I certify that I am a D-H credentialed attending provider with admitting privileges and that the patient meets or has met medical necessity to require an inpatient IPI level of care meeting a minimumof two midnights or is on the CMS inpatient only procedure list (status C) due to: the patient has met Inpatient IPI criteria and is awaiting rehabilitation or [place] facility placement withactive referrals in process . * Tricia Gerber RN - 02/12/2018 3:58 PM EDT Sent message to Bhakti Riojas- Senior Senior Pensions Administrator with [facility] [phone]. Request update on status of search for a home. ?? Tricia Gerber RN Case Flexographic Press Set Up Operator of Care Management [email or web address] Pager: [phone] * Christopher Stanley MD - 02/12/2018 7:40 AM EDT [facility] Medicine Attending Daily Progress Note Patient Description: [...] contact information in Facesheet Christopher Stanley MD Hospital Medicine Pager [phone] IPI Certification I certify that I am a D-H credentialed attending provider with admitting privileges and that the patient meets or has met medical necessity to require an inpatient IPI level of care meeting a minimumof two midnights or is on the [facility] inpatient only procedure list (status C) due to: the patient has met Inpatient IPI criteria and is awaiting rehabilitation or [place] facility placement withactive referrals in process . * Christopher Stanley MD - 02/11/2018 2:19 PM EDT [facility] Medicine Attending Daily Progress Note Patient Description: [...] made him some unicorn poop out of SE[employer] and corn starch to play with today. [...] contact information in Facesheet Christopher Stanley MD [facility] Medicine Pager [phone] IPI Certification I certify that I am a D-H credentialed attending provider with admitting privileges and that the patient meets or has met medical necessity to require an inpatient IPI level of care meeting a minimumof two midnights or is on the CMS inpatient only procedure list (status C) due to: the patient has met Inpatient IPI criteria and is awaiting rehabilitation or [place] facility placement withactive referrals in process . * Christopher Stanley MD - 02/10/2018 11:53 AM EDT [facility] Medicine Attending Daily Progress Note Patient Description: [...] contact information in Facesheet Christopher Stanley MD [facility] Medicine Pager [phone] IPI Certification I certify that I am a D-H credentialed attending provider with admitting privileges and that the patient meets or has met medical necessity to require an inpatient IPI level of care meeting a minimumof two midnights or is on the CMS inpatient only procedure list (status C) due to: the patient has met Inpatient IPI criteria and is awaiting rehabilitation or [place] facility placement withactive referrals in process . * Christopher Stanley MD - 02/09/2018 8:08 AM EDT Hospital Medicine Attending Daily Progress [...] contact information in Facesheet Christopher Stanley MD [facility] Medicine Pager [phone] IPI Certification I certify that I am a D-H credentialed attending provider with admitting privileges and that the patient meets or has met medical necessity to require an inpatient IPI level of care meeting a minimumof two midnights or is on the CMS inpatient only procedure list (status C) due to: the patient has met Inpatient IPI criteria and is awaiting rehabilitation or [place] health care facility facility placement withactive referrals in process . * Christopher Stanley MD - 02/08/2018 10:43 AM EDT [facility] Medicine Attending Daily Progress Note Patient Description: [...] new complaints. Relates his love for [employer]. Physical Exam Temp: -- Heart Rate: [125] [...] Encourage normal sleep-wake cycle Christopher Stanley MD [facility] Medicine Pager [phone] IPI Certification I certify that I am a D-H credentialed attending provider with admitting privileges and that the patient meets or has met medical necessity to require an inpatient IPI level of care meeting a minimumof two midnights or is on the CMS inpatient only procedure list (status C) due to: the patient has met Inpatient IPI criteria and is awaiting rehabilitation or [place] placement withactive referrals in process . * Christopher Stanley MD - 02/07/2018 7:45 AM EDT [facility] Medicine Attending Daily Progress Note Patient Description: [...] alert, agitated, eating carrots and celery with PHARMACY DIRECTOR HEENT: Anicteric sclerae; moist mucous membranes Neck: [...] extra dose of quetiapine Christopher Stanley MD [facility] Medicine Pager [phone] IPI Certification I certify that I am a D-H credentialed attending provider with admitting privileges and that the patient meets or has met medical necessity to require an inpatient IPI level of care meeting a minimumof two midnights or is on the [facility] inpatient only procedure list (status C) due to: the patient has met Inpatient IPI criteria and is awaiting rehabilitation or [place] facility placement withactive referrals in process . [...] kg (218 lb 1.6 oz) I/Os: 02/05 0701 - 02/06 0700 In: 2740 [P.O.:2740] Out: [...] minimumof two midnights or is on the [facility] inpatient only procedure list (status C) due to: Patient previously met IPI criteria and is now awaiting placement at a [place] facility. FRAN GILLIAM MD 02/06/2018 Hospital Medicine Team Pager: #[phone] * Fran Gilliam MD - 02/05/2018 4:07 [...] minimumof two midnights or is on the [facility] inpatient only procedure list (status C) due to: Patient previously met IPI criteria and is now awaiting placement at a [place] facility. FRAN GILLIAM MD 02/05/2018 Hospital Medicine Team Pager: #[phone] * Fran Gilliam MD - 02/04/2018 9:44 [...] minimumof two midnights or is on the [facility] inpatient only procedure list (status C) due to: Patient previously met IPI criteria and is now awaiting placement at a [place] facility. FRAN GILLIAM MD 02/04/2018 Hospital Medicine Team Pager: #[phone] * Fran Gilliam MD - 02/03/2018 5:05 PM EDT Hospital [...] and is now awaiting placement at a [place] facility. FRAN GILLIAM MD 02/03/2018 Hospital Medicine Team Pager: #[phone] * Fran Gilliam MD - 02/02/2018 3:40 [...] and is now awaiting placement at a [place] facility. FRAN GILLIAM MD 02/02/2018 Hospital Medicine Team Pager: #[phone] * Fran Gilliam MD - 02/01/2018 5:15 [...] minimumof two midnights or is on the [facility] inpatient only procedure list (status C) due to: Patient previously met IPI criteria and is now awaiting placement at a [place] facility. FRAN GILLIAM MD 02/02/2018 Hospital Medicine Team Pager: #[phone] * Fran Gilliam MD - 01/31/2018 12:10 [...] minimumof two midnights or is on the [facility] inpatient only procedure list (status C) due to: Patient previously met IPI criteria and is now awaiting placement at a [place] facility. FRAN GILLIAM MD 02/01/2018 Hospital Medicine Team Pager: #[phone] * Tricia Gerber RN - 01/30/2018 3:33 PM EDT Sent message to Bhakti Riojas- Senior Senior Pensions Administrator with [facility][1] [employer] [phone]. Request update on status of search for a home. Tricia Gerber RN Case [employer] Press Set Up Operator of Care Management [email or web address] Pager: [phone] * Noah Menard MD - 01/30/2018 8:06 [...] and is now awaiting placement at a [place] facility. LOS >48hrs. Noah Menard MD 01/30/2018 Hospital Medicine Team Pager: #[phone] * Noah Menard MD - 01/29/2018 7:52 [...] Last: 95.7 kg (211 lb) I/Os: 01/28 701 - 01/29 0700 In: 2680 [P.O.:2680] Out: [...] minimumof two midnights or is on the [facility] inpatient only procedure list (status C) due to: Patient previously met IPI criteria and is now awaiting placement at a [place] facility. LOS >48hrs. Noah Menard MD 01/29/2018 Hospital Medicine Team Pager: #[phone] * Yadi Mccauley MD - 01/28/2018 8:29 AM EDT ENDOCRINOLOGY FOLLOW UP INPATIENT NOTE [facility] Name: Miguel Angel Mason Date of Consultation: [...] History: Procedure Laterality Date ??? PRO OPEN COREMAKING SUPERVISOR FIX ACETABULAR FX Left 09/04/2017 @OPEN TREATMENT, ACETABULAR FX (WRVU 25.41) performed by Amy Lance MD at [facility] MA[facility] OR Allergies Allergen Reactions ??? Lopid [...] Walsh, DO Endocrinology, Diabetes and Metabolism Fellow 01/28/2018 8:29 [...] - 01/28 0700 In: 3350 [P.O.:3350] Out: 2000 [Urine:2000] Admit: 86.64 kg Physical Exam: GEN [...] minimumof two midnights or is on the [facility] inpatient only procedure list (status C) due to: Patient previously met IPI criteria and is now awaiting placement at a [place] facility. LOS >48hrs. Noah Menard MD 01/28/2018 Hospital Medicine Team Pager: #[phone] * Yadi Mccauley MD - 01/27/2018 4:19 PM EDT Images from the original note were not included. ENDOCRINOLOGY FOLLOW UP INPATIENT NOTE [facility] Name: Miguel Angel Mason Date of Consultation: [...] History: Procedure Laterality Date ??? PRO OPEN COREMAKING SUPERVISOR FIX ACETABULAR FX Left 09/04/2017 @OPEN TREATMENT, ACETABULAR FX (WRVU 25.41) performed by Amy Lance MD at [facility] OR Allergies Allergen Reactions ??? Lopid [...] with the attending provider, Dr. Mccauley. Lindsey Walsh DO Endocrinology, Diabetes and Metabolism Fellow 01/27/2018 4:19 [...] for 01/23: Met with Bhakti Riojas- Senior Senior Pensions Administrator with [facility] [phone]. We reviewed patient and his needs. Expressed to her concerns for the disservice that has been done to this patient. He has remained in the hospital for an extended amount of time and [facility] has not been responsive or assistive [...] discharge planning needs. Tricia Gerber RN Case Flexographic Press Set Up Operator of Care Management [email or web address] Pager: [phone] * Noah Menard MD - 01/27/2018 7:40 [...] Last: 95.7 kg (211 lb) I/Os: 01/26 0701 - 01/27 0700 In: 3021 [P.O.:2601; I.V.:420] [...] minimumof two midnights or is on the [facility] inpatient only procedure list (status C) due to: Patient previously met IPI criteria and is now awaiting placement at a [place] facility. LOS >48hrs. Noah Menard MD 01/27/2018 Hospital Medicine Team Pager: #[phone] * Noah Menard MD - 01/26/2018 7:40 [...] for discharge and awaiting placement at a [place] facility. Active Problems: Active Hospital Problems Diagnosis [...] for discharge and awaiting placement at a [place] facility. # Left acetabular fracture: S/p operative [...] minimumof two midnights or is on the [facility] inpatient only procedure list (status C) due to: Patient previously met IPI criteria and is now awaiting placement at a [place] facility. LOS >48hrs. Noah Menard MD 01/26/2018 Hospital Medicine Team Pager: #[phone] * Dani Montoya RN - 01/25/2018 5:18 [...] for discharge and awaiting placement at a [place] facility. Active Problems: Active Hospital Problems Diagnosis [...] for discharge and awaiting placement at a [place] facility. # Left acetabular fracture: S/p operative [...] minimumof two midnights or is on the [facility] inpatient only procedure list (status C) due to: Patient previously met IPI criteria and is now awaiting placement at a [place] facility. LOS >48hrs. Noah Menard MD 01/25/2018 Hospital Medicine Team Pager: #[phone] * Noah Menard MD - 01/24/2018 7:14 [...] for discharge and awaiting placement at a [place] facility. Active Problems: Active Hospital Problems Diagnosis [...] for discharge and awaiting placement at a [place] facility. # Left acetabular fracture: S/p operative [...] minimumof two midnights or is on the [facility] inpatient only procedure list (status C) due to: Patient previously met IPI criteria and is now awaiting placement at a [place] facility. LOS >48hrs. Noah Menard MD 01/24/2018 Hospital Medicine Team Pager: #[phone] * Abimbola Goldstein MD - 01/23/2018 8:18 [...] %] Intake/Output Summary (Last 24 hours) at 01/23/18817 Last data filed at 01/22/18 1807 Gross [...] presumed environmental given change from his normal half-way to the variably hospital situation. Had been [...] WBAT, not able to return to current half-way and appreciate CM/SW assistance who are reaching out to [facility] for other options - may be home opening in March per report. Denied at SNFs with behavior. [facility] seems only option but no viable current [...] none DVT PPX: SCDs Anticipated Disposition: Currently half-way is not feasible - needs to be able to (at a minimum) walk to the bathroom and go up/down 13 stairs (which mimics the current living situation at his half-way). Per our SW, [facility] is discussing options but no current viable option. SNFs declined. Team Pager(MD Coverage 27/01): # [phone] PCP: NAKIA Cifuentes [phone] Attestation: IPI Certification I certify that I am a D-H credentialed attending provider with admitting privileges and that the patient meets or has met medical necessity to require an inpatient IPI level of care meeting a minimumof two midnights or is on the [facility] inpatient only procedure list (status C) due to: the patient has met Inpatient IPI criteria and is awaiting rehabilitation or [place] facility placement withactive referrals in process PCP: NAKIA Cifuentes [phone] ABIMBOLA GOLDSTEIN MD 01/23/2018 * Tricia Gerber RN - 01/22/2018 5:12 PM EDT Received call that YULISA Quevedo RN will be completing on-site visit on 01/23. Tricia Gerber RN Case Flexographic Press Set Up Operator of Care Management [email or web address] Pager: [phone] * Debbie Keller DT - 01/22/2018 12:35 [...] continue to send. Please call diet office [phone] to modify snack any time. Nursing had [...] presumed environmental given change from his normal half-way to the variably hospital situation. Had been [...] WBAT, not able to return to current half-way and appreciate CM/SW assistance who are reaching out to [facility] for other options - may be home opening in March per report. Denied at SNFs with behavior. [facility] seems only option but no viable current [...] none DVT PPX: SCDs Anticipated Disposition: Currently half-way is not feasible - needs to be able to (at a minimum) walk to the bathroom and go up/down 13 stairs (which mimics the current living situation at his half-way). Per our SW, [facility] is discussing options but no current viable option. SNFs declined. Team Pager(MD Coverage 27/01): # [phone] PCP: NAKIA Cifuentes [phone] Attestation: IPI Certification I certify that I am a D-H credentialed attending provider with admitting privileges and that the patient meets or has met medical necessity to require an inpatient IPI level of care meeting a minimumof two midnights or is on the [facility] inpatient only procedure list (status C) due to: the patient has met Inpatient IPI criteria and is awaiting rehabilitation or [place] facility placement withactive referrals in process PCP: NAKIA Cifuentes [phone] ABIMBOLA GOLDSTEIN MD 01/22/2018 * Danay Monge MD - 01/21/2018 3:18 PM EDT [facility] Medicine Attending Daily Progress Note Admit Date: 09/02/2017 Hospital Day 141 days Active Hospital Problems Diagnosis ??? S/P ORIF left acetabulum fracture 09/04/2017 Dr. Lance ??? Acute urinary retention ??? Diabetes insipidus ??? Adrenal insufficiency ??? Panhypopituitarism ??? Seizure disorder ??? Hypothyroidism Resolved Hospital Problems Diagnosis Date Resolved ??? Postoperative anemia due to acute blood loss 12/09/[address] [facility] Active Non-Hospital Problems Diagnosis ??? Insomnia ??? [...] presumed environmental given change from his normal half-way to the variably hospital situation. Had been [...] WBAT, not able to return to current half-way and appreciate CM/SW assistance who are reaching out to [facility] for other options - may be home opening in March per report. Denied at SNFs with behavior. [facility] seems only option but no viable current [...] none DVT PPX: SCD Anticipated Disposition: Currently half-way is not feasible - needs to be able to (at a minimum) walk to the bathroom and go up/down 13 stairs (which mimics the current living situation at his half-way). Per our SW, [facility] is discussing options but no current viable option. SNFs declined. Team Pager(MD Coverage 27/01): # [phone] PCP: NAKIA Cifuentes [phone] Attestation: IPI Certification I certify that I [...] IPI criteria and is awaiting rehabilitation or [place] facility placement withactive referrals in process PCP: NAKIA Cifuentes [phone] DANAY MONGE MD 01/21/2018 * Danay Monge [...] presumed environmental given change from his normal half-way to the variably hospital situation. Had been [...] WBAT, not able to return to current half-way and appreciate CM/SW assistance who are reaching out to [facility] for other options - may be home opening in March per report. Denied at SNFs with behavior. [facility] seems only option but no viable current [...] none DVT PPX: SCD Anticipated Disposition: Currently half-way is not feasible - needs to be able to (at a minimum) walk to the bathroom and go up/down 13 stairs (which mimics the current living situation at his half-way). Per our SW, [facility] is discussing options but no current viable option. SNFs declined. Team Pager( Coverage 27/01): # [phone] PCP: NAKIA Cifuentes [phone] Attestation: IPI Certification I certify that I am a D-H credentialed attending provider with admitting privileges and that the patient meets or has met medical necessity to require an inpatient IPI level of care meeting a minimumof two midnights or is on the [facility] inpatient only procedure list (status C) due to: the patient has met Inpatient IPI criteria and is awaiting rehabilitation or [place] facility placement withactive referrals in process Crista Aguilar MD PCP: NAKIA Cifuentes [phone] DANAY MONGE MD 01/20/2018 * Danay Monge [...] presumed environmental given change from his normal half-way to the variably hospital situation. Had been [...] WBAT, not able to return to current half-way and appreciate CM/SW assistance who are reaching out to [facility] for other options - may be home opening in March per report. Denied at SNFs with behavior. [facility] seems only option but no viable current [...] none DVT PPX: SCD Anticipated Disposition: Currently half-way is not feasible - needs to be able to (at a minimum) walk to the bathroom and go up/down 13 stairs (which mimics the current living situation at his half-way). Per our SW, [facility] is discussing options but no current viable option. SNFs declined. Team Pager( Coverage 27/01): # [phone] PCP: NAKIA Cifuentes [phone] Attestation: IPI Certification I certify that I [...] IPI criteria and is awaiting rehabilitation or [place] facility placement withactive referrals in process Cirsta Aguilar MD PCP: NAKIA Cifuentes [phone] DANAY MONGE MD 01/19/2018 * Danay Monge [...] anemia due to acute blood loss 12/09/[address] [facility] Active Non-Hospital Problems Diagnosis ??? Insomnia ??? [...] presumed environmental given change from his normal half-way to the variably hospital situation. Had been [...] WBAT, not able to return to current half-way and appreciate CM/SW assistance who are reaching out to [facility] for other options - may be home opening in March per report. Denied at SNFs with behavior. [facility] seems only option but no viable current [...] from 20/10/10 to 20/10 per endocrine on 5/13 -increased synthroid to 200 mcg 11/23 - [...] none DVT PPX: SCD Anticipated Disposition: Currently half-way is not feasible - needs to be able to (at a minimum) walk to the bathroom and go up/down 13 stairs (which mimics the current living situation at his half-way). Per our SW, [facility] is discussing options but no current viable option. SNFs declined. Team Pager( Coverage 27/01): # [phone] PCP: NAKIA Cifuentes [phone] Attestation: IPI Certification I certify that I [...] IPI criteria and is awaiting rehabilitation or [place] facility placement withactive referrals in process Crista Aguilar MD PCP: NAKIA Cifuentes [phone] DANAY MONGE MD 01/18/2018 * Danay Monge [...] anemia due to acute blood loss 12/09/[address] [facility] Active Non-Hospital Problems Diagnosis ??? Insomnia ??? [...] presumed environmental given change from his normal half-way to the variably hospital situation. Had been [...] WBAT, not able to return to current half-way and appreciate CM/SW assistance who are reaching out to [facility] for other options - may be home opening in March per report. Denied at SNFs with behavior. [facility] seems only option but no viable current [...] none DVT PPX: SCD Anticipated Disposition: Currently half-way is not feasible - needs to be able to (at a minimum) walk to the bathroom and go up/down 13 stairs (which mimics the current living situation at his half-way). Per our SW, [facility] is discussing options but no current viable option. SNFs declined. Team Pager(MD Coverage 27/01): # [phone] PCP: NAKIA Cifuentes [phone] Attestation: IPI Certification I certify that I am a D-H credentialed attending provider with admitting privileges and that the patient meets or has met medical necessity to require an inpatient IPI level of care meeting a minimumof two midnights or is on the [facility] inpatient only procedure list (status C) due to: the patient has met Inpatient IPI criteria and is awaiting rehabilitation or [place] facility placement withactive referrals in process Crista Aguilar MD PCP: NAKIA Cifuentes [phone] DANAY MONGE MD 01/17/2018 * Crista Aguilar [...] History: No acute events ROS: Talked with PHARMACY DIRECTOR. Miguel Angel went out to look at [...] presumed environmental given change from his normal half-way to the variably hospital situation. Had been [...] WBAT, not able to return to current half-way and appreciate CM/SW assistance who are reaching out to [facility] for other options - may be home opening in March per report. Denied at SNFs with behavior. [facility] seems only option but no viable current [...] none DVT PPX: SCD Anticipated Disposition: Currently half-way is not feasible - needs to be able to (at a minimum) walk to the bathroom and go up/down 13 stairs (which mimics the current living situation at his half-way). Per our SW, [facility] is discussing options but no current viable option. SNFs declined. Team Pager( Coverage 27/01): # [phone] PCP: NAKIA Cifuentes [phone] Attestation: IPI Certification I certify that I [...] IPI criteria and is awaiting rehabilitation or [place] facility placement withactive referrals in process Crista Aguilar MD 01/16/2018 * Crista Aguialr MD - 01/15/2018 3:23 PM EDT Hospital [...] visit. ROS limited by mental status. Per PHARMACY DIRECTOR sleeping more today -did not finish lunch. [...] presumed environmental given change from his normal half-way to the variably hospital situation. Had been [...] WBAT, not able to return to current half-way and appreciate CM/SW assistance who are reaching out to [facility] for other options - may be home opening in March per report. Denied at SNFs with behavior. [facility] seems only option but no viable current [...] none DVT PPX: SCD Anticipated Disposition: Currently half-way is not feasible - needs to be able to (at a minimum) walk to the bathroom and go up/down 13 stairs (which mimics the current living situation at his half-way). Per our SW, [facility] is discussing options but no current viable option. SNFs declined. Team Pager( Coverage 27/01): # [phone] PCP: NAKIA Cifuentes [phone] Attestation: IPI Certification I certify that I [...] IPI criteria and is awaiting rehabilitation or [place] facility placement withactive referrals in process Crista Aguilar MD 01/15/2018 * Tricia Gerber RN - 01/15/2018 1:14 PM EDT Left message for Lc Hull# [phone]- director of [facility]. Left voice mail for Carissa Posada, Chief of Developmental Services for the [facility]. [phone]. Tricia Gerber RN Case Flexographic Press Set Up Operator of Care Management [email or web address] Pager: [phone] * Adia Clarke RN - 01/15/2018 10:34 [...] anemia due to acute blood loss 12/09/[address] [facility] Active Non-Hospital Problems Diagnosis ??? Insomnia ??? Blind ??? CVA (cerebral vascular accident) ??? Urinary incontinence Interval History: No acute events ROS: Miguel Angel is sitting in chair without acute complaints. Doing awesome. Denies pain or SOB. No acute concerns from PHARMACY DIRECTOR but notices still some unsteadiness with gait. [...] presumed environmental given change from his normal half-way to the variably hospital situation. Had been [...] clarify if able to return to current half-way and may need to explore other options with coordinator of his housing if this is not possible - per SW they are exploring options including facility that [...] none DVT PPX: SCD Anticipated Disposition: Currently half-way does not seem feasible - needs to be able to (at a minimum) walk to the bathroom and go up/down 13 stairs (which mimics the current living situation at his half-way). Per our SW, [facility] is discussing options but no current viable option. SNFs declined. Team Pager(MD Coverage 27/01): # [phone] PCP: NAKIA Cifuentes [phone] Attestation: IPI Certification I certify that I am a D-H credentialed attending provider with admitting privileges and that the patient meets or has met medical necessity to require an inpatient IPI level of care meeting a minimumof two midnights or is on the [facility] inpatient only procedure list (status C) due to: the patient has met Inpatient IPI criteria and is awaiting rehabilitation or [place] placement withactive referrals in process Crista [...] presumed environmental given change from his normal half-way to the variably hospital situation. Had been [...] clarify if able to return to current half-way and may need to explore other options [...] SCD Anticipated Disposition: SNF vs back to half-way --> no longer being seen by PT/OT, he continues to take a few steps with assistance and using a walker but needs to be able to (at a minimum) walk to the bathroom and go up/down 13 stairs (which mimics the current living situation at his half-way) Team Pager( Coverage 27/01): # [phone] PCP: NAKIA Cifuentes [phone] Attestation: IPI Certification I certify that I [...] IPI criteria and is awaiting rehabilitation or [place] withactive referrals in process Crista Aguilar MD 01/13/2018 * Tricia Gerber RN - 01/12/2018 4:32 PM EDT Received call from Carissa Posada, Chief of Developmental Services for the [facility][1] of [facility]. [phone]. Stated they are having a large meeting with the state today to help findappropriate housing for Miguel Angel. Reports they should have an update on plan by 01/13/18. Tricia Gerber RN Case Flexographic Press Set Up Operator of Care Management [email or web address] Pager: [phone] * Guerrero Bah MD - 01/12/2018 4:29 PM EDT Images from the original note were not included. Brief Endocrinology Follow up note Name: Miguel Angel Mason Date: 01/12/18 Room: [address] [place] [address]A HPI: Miguel Angel Mason??is a 27 y.o.male??with [...] MD Endocrinology, Diabetes and Metabolism Fellow Pager #[phone] 01/12/2018 * Crista Aguilar MD - 01/12/2018 [...] presumed environmental given change from his normal half-way to the variably hospital situation. Stopped opioids [...] clarify if able to return to current half-way and may need to explore other options [...] SCD Anticipated Disposition: SNF vs back to half-way --> no longer being seen by PT/OT, he continues to take a few steps with assistance and using a walker but needs to be able to (at a minimum) walk to the bathroom and go up/down 13 stairs (which mimics the current living situation at his half-way) Team Pager( Coverage 27/01): # [phone] PCP: NAKIA Cifuentes [phone] Attestation: IPI Certification I certify that I [...] IPI criteria and is awaiting rehabilitation or [place] facility placement withactive referrals in process Crista [...] presumed environmental given change from his normal half-way to the variably hospital situation. Stopped opioids [...] clarify if able to return to current half-way and may need to explore other options [...] SCD Anticipated Disposition: SNF vs back to half-way --> no longer being seen by PT/OT, he continues to take a few steps with assistance and using a walker but needs to be able to (at a minimum) walk to the bathroom and go up/down 13 stairs (which mimics the current living situation at his half-way) Team Pager( Coverage 27/01): # [phone] PCP: NAKIA Cifuentes [phone] Attestation: IPI Certification I certify that I am a D-H credentialed attending provider with admitting privileges and that the patient meets or has met medical necessity to require an inpatient IPI level of care meeting a minimumof two midnights or is on the [facility] inpatient only procedure list (status C) due to: the patient has met Inpatient IPI criteria and is awaiting rehabilitation or [place] facility placement withactive referrals in process Crista Aguilar MD 01/11/2018 * Kwesi Meneses, RN - 01/11/2018 5:40 AM EDT No acute events overnight, VSS. Pt appearing to have slept well, 1:1 sitter remains at bedside for safety. Pt incontinent urine, No BM this shift. * Crista Aguilar MD - 01/10/2018 1:35 PM EDT [facility] Medicine Attending Daily Progress Note Admit Date: 09/02/2017 Hospital Day 130 days Active Hospital Problems Diagnosis ??? S/P ORIF left acetabulum fracture 09/04/2017 Dr. Gitajn ??? Acute urinary retention ??? Diabetes insipidus [...] presumed environmental given change from his normal half-way to the variably hospital situation. Stopped opioids [...] clarify if able to return to current half-way and may need to explore other options [...] SCD Anticipated Disposition: SNF vs back to half-way --> no longer being seen by PT/OT, he continues to take a few steps with assistance and using a walker but needs to be able to (at a minimum) walk to the bathroom and go up/down 13 stairs (which mimics the current living situation at his half-way) Team Pager( Coverage 27/01): # [phone] PCP: NAKIA Cifuentes [phone] Attestation: IPI Certification I certify that I am a D-H credentialed attending provider with admitting privileges and that the patient meets or has met medical necessity to require an inpatient IPI level of care meeting a minimumof two midnights or is on the [facility] inpatient only procedure list (status C) due to: the patient has met Inpatient IPI criteria and is awaiting rehabilitation or [place] facility placement withactive referrals in process Crista Aguilar MD 01/10/2018 * Yadi Mccauley MD - 01/10/2018 11:39 AM EDT Images from the original note were not included. Endocrinology Follow up note Name: Miguel Angel Mason Date: 01/10/18 Room: [address] [place] [address] HPI: Miguel Angel Mason??is a 27 y.o.male??with [...] History: Procedure Laterality Date ??? PRO OPEN COREMAKING SUPERVISOR FIX ACETABULAR FX Left 09/04/2017 @OPEN TREATMENT, [...] MD Endocrinology, Diabetes and Metabolism Fellow Pager #[phone] 01/10/2018 I have seen the patient and reviewed Dr. Guerrero Nick's above history and I agree with the details as written. The assessment and plan were formulated in discussion with me and I agree with them as documented. Yadi Mccauley MD, PhD, FACP, FACE * Tricia Gerber, RN - 01/09/2018 3:02 PM EDT Left message for Subha Tejeda # [phone]- nurse who oversees half-way. Left message for Lc Hull# [phone]- director of [facility]. Called town offices in [place], [place] . They do not know of any other facilities that could accommodate patient needs. Left voice mail for Carissa Posada, Chief of Developmental Services for the [facility]. [phone]. Case management will continue to follow. Tricia Gerber RN Case Flexographic Press Set Up Operator of Care Management [email or web address] Pager: [phone] * Maldonado Salazar MD - 01/09/2018 11:43 [...] History / ROS: - quietly listening to ensembli book this morning Physical Exam Vitals Range [...] presumed environmental given change from his normal half-way to the variably hospital situation. Stopped opioids [...] SCD Anticipated Disposition: SNF vs back to half-way --> no longer being seen by PT/OT, he continues to take a few steps with assistance and using a walker but needs to be able to (at a minimum) walk to the bathroom and go up/down 13 stairs (which mimics the current living situation at his half-way) Team Pager( Coverage 27/01): # [phone] PCP: NAKIA Cifuentes [phone] Attestation: IPI Certification I certify that I [...] IPI criteria and is awaiting rehabilitation or [place] facility placement withactive referrals in process Maldonado Salazar MD 01/09/2018 * Lauren Nelson, DT - 01/08/2018 3:35 PM EDT Nutrition [...] seen for nutrition follow up. Spoke with PHARMACY DIRECTOR who reported a good appetite that has been ongoing. No difficulty chewing or swallowing. No nausea or vomiting reported. PHARMACY DIRECTOR requestedhealthy snacks at bedside: carrot sticks, celery stick, cheese and grapes & apples - will add to nourshments each day. PHARMACY DIRECTOR had no questions or concerns at this [...] SCD Anticipated Disposition: SNF vs back to half-way --> no longer being seen by PT/OT, he continues to take a few steps with assistance and using a walker but needs to be able to (at a minimum) walk to the bathroom and go up/down 13 stairs (which mimics the current living situation at his half-way) Team Pager( Coverage 27/01): # [phone] PCP: NAKIA Cifuentes [phone] Attestation: IPI Certification I certify that I am a D-H credentialed attending provider with admitting privileges and that the patient meets or has met medical necessity to require an inpatient IPI level of care meeting a minimumof two midnights or is on the [facility] inpatient only procedure list (status C) due to: the patient has met Inpatient IPI criteria and is awaiting rehabilitation or [place] facility placement withactive referrals in process Maldonado [...] SCD Anticipated Disposition: SNF vs back to half-way --> no longer being seen by PT/OT, he continues to take a few steps with assistance and using a walker but needs to be able to (at a minimum) walk to the bathroom and go up/down 13 stairs (which mimics the current living situation at his half-way) Team Pager( Coverage 27/01): # [phone] PCP: NAKIA Cifuentes [phone] Attestation: IPI Certification I certify that I [...] IPI criteria and is awaiting rehabilitation or [place] facility placement withactive referrals in process Maldonado [...] something he normally likes to do at half-way, then try to avail him ofthat here. [...] SCD Anticipated Disposition: SNF vs back to half-way pending progress with PT/OT --> need to discuss ongoing therapy involvement as he has not been seen in several days, at a minimum he needs to walk to bathroom and go up/down 13 stairs (which mimics the current living situation at his half-way) Team Pager( Coverage 27/01): # [phone] PCP: NAKIA Cifuentes [phone] Attestation: IPI Certification I certify that I [...] IPI criteria and is awaiting rehabilitation or [place] facility placement withactive referrals in process Maldonado Salazar MD 01/06/2018 * Yadi Mccauley MD - 01/06/2018 9:57 AM EDT Images from the original note were not included. Endocrinology Follow up note Name: Miguel Angel Mason Date: 01/06/18 Room: [address] [place] [address]A HPI: Miguel Angel Mason??is a 27 y.o.male??with [...] History: Procedure Laterality Date ??? PRO OPEN COREMAKING SUPERVISOR FIX ACETABULAR FX Left 09/04/2017 @OPEN TREATMENT, [...] MD Endocrinology, Diabetes and Metabolism Fellow Pager #[phone] 01/06/2018 I have seen the patient and reviewed Dr. Guerrero Nick's above history and I agree with the details as written. The assessment and plan were formulated in discussion with me and I agree with them as documented. Yadi Mccauley MD, PhD, FACP, FACE * Maldonado Salazar MD - 01/05/2018 1:08 PM EDT Hospital Medicine Attending Daily [...] something he normally likes to do at half-way, then try to avail him ofthat here. [...] SCD Anticipated Disposition: SNF vs back to half-way pending progress with PT/OT --> need to discuss ongoing therapy involvement as he has not been seen in several days, at a minimum he needs to walk to bathroom and go up/down 13 stairs (which mimics the current living situation at his half-way) Team Pager(MD Coverage 27/01): # [phone] PCP: NAKIA Cifuentes [phone] Attestation: IPI Certification I certify that I [...] IPI criteria and is awaiting rehabilitation or [place] facility placement withactive referrals in process Maldonado Salazar MD 01/05/2018 * Yadi Mccauley MD - 01/05/2018 9:51 AM EDT Images from the original note were not included. Endocrinology Follow up note Name: Miguel Angel Mason Date: 01/05/18 Room: [address] [place] [address]A HPI: Miguel Angel Mason??is a 27 y.o.male??with [...] History: Procedure Laterality Date ??? PRO OPEN COREMAKING SUPERVISOR FIX ACETABULAR FX Left 09/04/2017 @OPEN TREATMENT, [...] MD Endocrinology, Diabetes and Metabolism Fellow Pager #[phone] 01/05/2018 Spoke with primary team. We recommend [...] something he normally likes to do at half-way, then try to avail him ofthat here. [...] SCD Anticipated Disposition: SNF vs back to half-way pending progress with PT/OT Team Pager( Coverage 27/01): # [phone] PCP: NAKIA Cifuentes [phone] Attestation: IPI Certification I certify that I am a D-H credentialed attending provider with admitting privileges and that the patient meets or has met medical necessity to require an inpatient IPI level of care meeting a minimumof two midnights or is on the [facility] inpatient only procedure list (status C) due to: the patient has met Inpatient IPI criteria and is awaiting rehabilitation or [place] facility placement withactive referrals in process Maldonado Salazar MD 01/04/2018 * Lindsey Walsh, DO - 01/04/2018 9:54 AM EDT Images from the original note were not included. ENDOCRINOLOGY FOLLOW UP INPATIENT NOTE [facility] Name: Miguel Angel Mason Date of Consultation: [...] History: Procedure Laterality Date ??? PRO OPEN COREMAKING SUPERVISOR FIX ACETABULAR FX Left 09/04/2017 @OPEN TREATMENT, ACETABULAR FX (WRVU 25.41) performed by Amy Lance MD at [facility] Allergies Allergen Reactions ??? Lopid [...] with 3.2L fluid restriction was recommended to soil conservation aide provider overnight. We continue to recommend this [...] the on-call Endocrinology service. GENEVIEVE PAGE MD Employee Representativeintrusion analyst Section of Endocrinology [facility] * Maldonado Salazar MD - [...] something he normally likes to do at half-way, then try to avail him ofthat here. [...] SCD Anticipated Disposition: SNF vs back to half-way pending progress with PT/OT Team Pager( Coverage 27/01): # [phone] PCP: NAKIA Cifuentes [phone] Attestation: IPI Certification I certify that I [...] IPI criteria and is awaiting rehabilitation or [place] facility placement withactive referrals in process Maldonado [...] If greater than 130 will additionally hold 6/30 AMdose of desmopressin. If less than 130 [...] Gilliam MD - 01/02/2018 12:00 PM EDT [facility] Medicine Attending Daily Progress Note Admit Date: [...] something he normally likes to do at half-way, then try to avail him ofthat here. [...] SCD Anticipated Disposition: SNF vs back to half-way pending progress with PT/OT Team Pager( Coverage 27/01): # [phone] PCP: NAKIA Cifuentes [phone] Attestation: IPI Certification I certify that I am a D-H credentialed attending provider with admitting privileges and that the patient meets or has met medical necessity to require an inpatient IPI level of care meeting a minimumof two midnights or is on the [facility] inpatient only procedure list (status C) due to: the patient has met Inpatient IPI criteria and is awaiting rehabilitation or [place] facility placement withactive referrals in process FRAN GILLIAM MD 01/03/2018 * Lindsey Walsh DO - 01/02/2018 11:00 AM EDT Images from the original note were not included. ENDOCRINOLOGY FOLLOW UP INPATIENT NOTE [facility] Name: Miguel Angel Mason Date of Consultation: [...] History: Procedure Laterality Date ??? PRO OPEN COREMAKING SUPERVISOR FIX ACETABULAR FX Left 09/04/2017 @OPEN TREATMENT, ACETABULAR FX (WRVU 25.41) performed by Amy Lance MD at [facility] Allergies Allergen Reactions ??? Lopid [...] level rising over past three days. On 6/25 there were no missed doses of DDAVP. [...] was discussed with the attending provider, Dr. Kayele Walsh, Endocrinology, Diabetes and Metabolism Fellow 01/02/2018 [...] agree with this plan. GENEVIEVE PAGE MD Employee Representativeintrusion analyst Section of Endocrinology [facility] * Fran Gilliam MD - 01/01/2018 4:20 PM EDT [facility] Medicine Attending Daily Progress Note Admit Date: [...] something he normally likes to do at half-way, then try to avail him ofthat here. [...] SCD Anticipated Disposition: SNF vs back to half-way pending progress with PT/OT Team Pager(MD Coverage 27/01): # [phone] PCP: NAKIA Cifuentes [phone] Attestation: IPI Certification I certify that I am a D-H credentialed attending provider with admitting privileges and that the patient meets or has met medical necessity to require an inpatient IPI level of care meeting a minimumof two midnights or is on the [facility] inpatient only procedure list (status C) due to: the patient has met Inpatient IPI criteria and is awaiting rehabilitation or [place] facility placement withactive referrals in process FRAN GILLIAM MD 01/01/2018 * Chavez Kelsey RN - 01/01/2018 3:14 PM EDT OFFICE OF CARE MANAGEMENT Met briefly with miguel angel this afternoon. He is in bed and appears very agitated and upset at this time. CM call to Lc Hull- [phone] 2. VM left with CM contact to f/u and discuss state assistance for appropriate placement for this gentleman. He does not appear to require further formal PT. He has been cleared to walk with nursing. He is currently 2 person assist on stairs. Pt is unable to return to half-way setting as his bedroom is second level [...] something he normally likes to do at half-way, then try to avail him ofthat here. [...] SCD Anticipated Disposition: SNF vs back to half-way pending progress with PT/OT Team Pager( Coverage 27/01): # [phone] PCP: NAKIA Cifuentes [phone] Attestation: IPI Certification I certify that I [...] IPI criteria and is awaiting rehabilitation or [place] facility placement withactive referrals in process FRAN [...] 12/30/17 0824 12/29/17 0357 12/28/177 12/28/17 0004 06/21/18 0550 NA 147* 142 145 < > [...] something he normally likes to do at half-way, then try to avail him ofthat here. [...] SCD Anticipated Disposition: SNF vs back to half-way pending progress with PT/OT Team Pager( Coverage 27/01): # [phone] PCP: NAKIA Cifuentes [phone] Attestation: IPI Certification I certify that I [...] IPI criteria and is awaiting rehabilitation or [place] facility placement withactive referrals in process FRAN GILLIAM MD 12/30/2017 * Murtaza Bruce PT - 12/29/2017 4:10 PM EDT PHYSICAL [...] monitor status. Murtaza Bruce PT, DPT Pager [phone] Inpatient Rehabilitation * Skyla Ayala, OT - [...] participation as able. Skyla Ayala, OTR Pager [phone] * Fran Gilliam MD - 12/29/2017 1:08 [...] something he normally likes to do at half-way, then try to avail him ofthat here. [...] SCD Anticipated Disposition: SNF vs back to half-way pending progress with PT/OT Team Pager(MD Coverage 27/01): # [phone] PCP: NAKIA Cifuentes [phone] Attestation: IPI Certification I certify that I [...] IPI criteria and is awaiting rehabilitation or [place] facility placement withactive referrals in process FRAN GILLIAM MD 12/29/2017 * Tricia Gerber RN - 12/29/2017 11:15 AM EDT Left another voice mail for Subha Hoytnora [phone] at [facility]. Request additionalinformation regarding half-way/ sitters/ developmental services waiver. [facility] has requested to remove the sitters they have been providing as they are getting burnedout and don't feel they are needed any more. Spoke with Lc Hull ([facility][1] Grease Maker) at [phone]. He reports that having sitters here or not does not affect pateints funding. States what may affect his funding is length of time spent in the hospital. Reports funding can end after 90 days in hospital. [facility] department of aging and independent living along [...] reports that Naheed Estrella was working with [facility] on an agreement. Informed him that per Sary liaison, patient is a regional denial. States he was not aware of that. Explained that patient is medically ready, in need of placement, and request assistance with placement. He reports that he will send RN out to review and determine if he is possibly ready for return to half-way. Case management will continue to follow. Tricia Gerber RN Case Flexographic Press Set Up Operator of Care Management [email or web address] Pager: [phone] * Fran Gilliam MD - 12/28/2017 2:09 [...] something he normally likes to do at half-way, then try to avail him ofthat here. [...] SCD Anticipated Disposition: SNF vs back to half-way pending progress with PT/OT Team Pager( Coverage 27/01): # [phone] PCP: NAKIA Cifuentes [phone] Attestation: IPI Certification I certify that I am a D-H credentialed attending provider with admitting privileges and that the patient meets or has met medical necessity to require an inpatient IPI level of care meeting a minimumof two midnights or is on the [facility] inpatient only procedure list (status C) due to: the patient has met Inpatient IPI criteria and is awaiting rehabilitation or [place] facility placement withactive referrals in process FRAN GILLIAM MD 12/28/2017 * Ren Dumont MD - 12/28/2017 11:04 AM EDT Images from the original note were not included. Endocrinology Follow up note Name: Miguel Angel Mason Date: 12/28/17 Room: [address] [place] [address] HPI: Miguel Angel Mason is a 27 [...] History: Procedure Laterality Date ??? PRO OPEN COREMAKING SUPERVISOR FIX ACETABULAR FX Left 09/04/2017 @OPEN TREATMENT, [...] MD Endocrinology, Diabetes and Metabolism Fellow Pager #[phone] 12/28/2017 I have disucssed patient with Dr. [...] something he normally likes to do at half-way, then try to avail him of that [...] SCD Anticipated Disposition: SNF vs back to half-way pending progress with PT/OT Team Pager( Coverage 27/01): # [phone] PCP: NAKIA Cifuentes [phone] Attestation: IPI Certification I certify that I am a D-H credentialed attending provider with admitting privileges and that the patient meets or has met medical necessity to require an inpatient IPI level of care meeting a minimumof two midnights or is on the [facility] inpatient only procedure list (status C) due to: the patient has met Inpatient IPI criteria and is awaiting rehabilitation or [place] facility placement withactive referrals in process FRAN [...] History: Procedure Laterality Date ??? PRO OPEN COREMAKING SUPERVISOR FIX ACETABULAR FX Left 09/04/2017 @OPEN TREATMENT, [...] would recommend stimulating PO intake. Nurse and clinical care coordinator think this is possible and will make [...] MD Endocrinology, Diabetes and Metabolism Fellow Pager #[phone] 12/26/2017 I have discussed patient with Dr. [...] Intake/Output Summary (Last 24 hours) at 12/26/17 0751 Last data filed at 12/25/17 1934 Gross [...] something he normally likes to do at half-way, then try to avail him of that [...] Disposition: SNF Team Pager( Coverage 27/01): # [phone] PCP: NAKIA Cifuentes [phone] Attestation: IPI Certification I certify that I [...] IPI criteria and is awaiting rehabilitation or [place] facility placement withactive referrals in process José Miguel Maher MD 12/26/2017 * Debbie Keller DT - 12/25/2017 3:36 PM EDT Nutrition [...] the interim. ADAM Kaur * José Miguel aMher MD - 12/25/2017 8:49 AM EDT Hospital [...] something he normally likes to do at half-way, then try to avail him of that [...] Disposition: SNF Team Pager( Coverage 27/01): # [phone] PCP: NAKIA Cifuentes [phone] Attestation: IPI Certification I certify that I [...] IPI criteria and is awaiting rehabilitation or [place] facility placement withactive referrals in process José Miguel Maher MD 12/25/2017 * José Miguel Maher MD - 12/24/2017 12:52 PM EDT [facility] Medicine Attending Daily Progress Note Admit Date: [...] 333 Recent Labs 12/24/17 0019 12/23/17 0641 12/21/17199912/21/17 1018 NA 147* 149* 143 147* K [...] something he normally likes to do at half-way, then try to avail him of that [...] Disposition: SNF Team Pager( Coverage 27/01): # [phone] PCP: NAKIA Cifuentes [phone] Attestation: IPI Certification I certify that I [...] IPI criteria and is awaiting rehabilitation or [place] facility placement withactive referrals in process José Miguel Maher MD 12/24/2017 * Tricia Gerber RN - 12/24/2017 11:13 AM EDT Case reviewed in eDH and with interdisciplinary team. Patient being reviewed for placement at [facility]. Placement is currently on hold due to lack of sitter. Spoke with half-way director Lali [phone]. [facility] has been providing sitter for patient during daytime hours. She asked if they could withdraw sitter as [facility] is also providing a sitter at all times. Informed her of plan for transition to [facility]. She reports that [facility] is too far to send half-way sitters up there. She stated that [facility] has made an agreement with [facility] for rehab there. Landscape Laborer spoke with [facility] liaison who stated they have not accepted him as he is a [facility] denial. Left voice mail for Allison Mojica ([facility] for [facility] Cotton Grader Matrix Bath Attendant) [phone]. Request call back with update of [facility] plans for placement. Case management will continue to follow and assist with discharge planning needs. Tricia Gerber RN Case [employer]ographic Press Set Up Operator of Care Management [email or web address] Pager: [phone] * Tricia Gerber RN - 12/23/2017 3:48 PM EDT Case reviewed with interdisciplinary team. Patient continues to be medically ready. Plan is for possible transfer to [facility] Swing. Per note from [place] today transfer is currently still on hold as we do not have designated sitters. Patient has required 1-2 sitters while in hospital. One is provided by [facility] and the other is provided by [facility]. Case management will continue to follow. Tricia Gerber RN Case Flexographic Press Set Up Operator of Care Management [email or web address] Pager: [phone] * José Miguel Maher MD - 12/23/2017 [...] something he normally likes to do at half-way, then try to avail him of that [...] Disposition: SNF Team Pager( Coverage 27/01): # [phone] PCP: NAKIA Cifuentes [phone] Attestation: IPI Certification I certify that I am a D-H credentialed attending provider with admitting privileges and that the patient meets or has met medical necessity to require an inpatient IPI level of care meeting a minimumof two midnights or is on the [facility] inpatient only procedure list (status C) due to: the patient has met Inpatient IPI criteria and is awaiting rehabilitation or [place] [facility] [place] placement withactive referrals in process José [...] 12.5* HCT 40.5 PLATELET 333 Recent Labs 12/21/17199912/21/17 1018 12/16/17 0901 NA 143 147* 143 [...] something he normally likes to do at half-way, then try to avail him of that [...] Disposition: SNF Team Pager( Coverage 27/01): # [phone] PCP: NAKIA Cifuentes [phone] Attestation: IPI Certification I certify that I [...] IPI criteria and is awaiting rehabilitation or [place] [facility] [place] facility placement withactive referrals in process José Miguel Maher MD 12/22/2017 * Tricia Gerber RN - 12/22/2017 11:18 AM EDT Based on discussions with the multi-disciplinary healthcare team, the patient would benefit from SNF level of care at discharge. ?? I have met with the patient/circulation representative to discuss discharge planning needs. I have provided the [facility], Office of Care Management letter from the Oral And Maxillofacial Surgery Resident pertaining to rehab referrals. I have also provided a letter describing our affiliations within the [facility] and educated them about their right to choose where referrals are placed. ?? I reviewed the different levels of rehab including SNF, swing, acute and LTAC with the patient/circulation representative. ?? The patient/circulation representative has been provided a list of facilities within their preferred geographic area. ?? I have requested that the patient/circulation representative provide at least three choices for referral. ?? The patient/circulation representative have requested referrals to: 1. [facility] ([facility]) [address] [place] [address] ?? [phone] ? Expected date of discharge: Medically ready Note routed to Assistant Center Director who will communicate referrals to facilities [...] Rate slower Confirmed by MD Oh, Sukhi Wakler ([id number]) on 12/06/2017 10:46:47 AM QTCCALC 452 [...] something he normally likes to do at half-way, then try to avail him of that [...] Disposition: SNF Team Pager( Coverage 27/01): # [phone] PCP: NAKIA Cifuentes [phone] Attestation: IPI Certification I certify that I [...] IPI criteria and is awaiting rehabilitation or [place] [facility] facility placement withactive referrals in process José [...] something he normally likes to do at half-way, then try to avail him of that [...] Disposition: SNF Team Pager(MD Coverage 27/01): # [phone] PCP: NAKIA Cifuentes [phone] Attestation: IPI Certification I certify that I [...] IPI criteria and is awaiting rehabilitation or [place] [facility] [place] facility placement withactive referrals in process José Miguel Maher MD 12/20/2017 * Fran Gilliam MD - 12/19/2017 1:10 PM EDT Hospital Medicine Attending Daily Progress Note Admit Date: 09/02/2017 Hospital Day 109 days Active Hospital Problems Diagnosis ??? S/P ORIF left acetabulum fracture 09/04/2017 Dr. Lance ??? Acute urinary retention ??? Diabetes insipidus ??? Adrenal insufficiency ??? Panhypopituitarism ??? Seizure disorder ??? Hypothyroidism Resolved Hospital Problems Diagnosis Date Resolved ??? Postoperative anemia due to acute blood loss 12/09/[address] [facility] Active Non-Hospital Problems Diagnosis ??? Insomnia ??? [...] Intake/Output Summary (Last 24 hours) at 12/20/17 0227 Last data filed at 12/19/172008 Gross per [...] something he normally likes to do at half-way, then try to avail him of that [...] behaviors (rehabilitation) and inability to climb stairs (half-way) - continue to try to make progress w/ measures described above and ongoing PT/OT Team Pager( Coverage 27/01): #[phone] PCP: NAKIA Cifuentes [phone] Attestation: IPI Certification I certify that I am a D-H credentialed attending provider with admitting privileges and that the patient meets or has met medical necessity to require an inpatient IPI level of care meeting a minimumof two midnights or is on the [facility] inpatient only procedure list (status C) due [...] something he normally likes to do at half-way, then try to avail him of that [...] behaviors (rehabilitation) and inability to climb stairs (half-way) - continue to try to make progress w/ measures described above and ongoing PT/OT Team Pager( Coverage 27/01): #[phone] PCP: NAKIA Cifuentes [phone] Attestation: IPI Certification I certify that I [...] be re-tasked at discharge - please page #[phone] prior to discharge so follow up can be arranged Kris Mcghee MD, PGY-1 Orthopaedic Surgery Pager #: [phone] No future appointments. Associated attestation - Amy [...] minutes Total timed interventions: 0 minutes Pager: [phone] [place] PTA Physical Therapy Rehabilitation Department * Melvina Motley DT - 12/17/2017 2:45 PM EDT Nutrition Services - Follow-up Note Miguel Angel Sweettomy : 1990 AGE: 27 y.o. Patient Active [...] Gilliam MD - 12/17/2017 1:15 PM EDT [facility] Medicine Attending Daily Progress Note Admit Date: 09/02/2017 Hospital Day 106 days Active Hospital Problems Diagnosis ??? S/P ORIF left acetabulum fracture 09/04/2017 Dr. Lance ??? Acute urinary retention ??? Diabetes insipidus ??? Adrenal insufficiency ??? Panhypopituitarism ??? Seizure disorder ??? Hypothyroidism Resolved Hospital Problems Diagnosis Date Resolved ??? Postoperative anemia due to acute blood loss 12/09/[address] [facility] Active Non-Hospital Problems Diagnosis ??? Insomnia ??? [...] something he normally likes to do at half-way, then try to avail him of that [...] behaviors (rehabilitation) and inability to climb stairs (half-way) - continue to try to make progress w/ measures described above and ongoing PT/OT Team Pager( Coverage 24/7): #[phone] PCP: NAKIA Cifuentes [phone] Attestation: IPI Certification I certify that I [...] ?? OCM requested referrals to: ?? [address]. [place] [address] ?? [phone] ? Expected date of discharge: Medically ready Note routed to Assistant Center Director who will communicate referrals to facilities and provide any required information. * Tricia Gerber RN - 12/16/2017 3:08 PM EDT Subha Tejeda [phone] (RN of [facility] who oversees the half-way). She reports she is working on finding [...] continue to follow. Tricia Gerber RN Case Flexographic Press Set Up Operator of Care Management [email or web address] Pager: [phone] * Fran Gilliam MD - 12/16/2017 11:40 [...] something he normally likes to do at half-way, then try to avail him of that [...] behaviors (rehabilitation) and inability to climb stairs (half-way) - continue to try to make progress w/ measures described above and ongoing PT/OT Team Pager( Coverage 27/01): #[phone] PCP: NAKIA Cifuentes [phone] Attestation: IPI Certification I certify that I am a D-H credentialed attending provider with admitting privileges and that the patient meets or has met medical necessity to require an inpatient IPI level of care meeting a minimumof two midnights or is on the [facility] inpatient only procedure list (status C) due to: Acetabular fx and hypernatremia FRAN GILLIAM MD 12/16/2017 * Fran Gilliam MD - 12/15/2017 4:50 PM EDT Hospital Medicine Attending Daily Progress Note Admit Date: 09/02/2017 Hospital Day 104 days Active Hospital Problems Diagnosis ??? S/P ORIF left acetabulum fracture 09/04/2017 Dr. Lance ??? Acute urinary retention ??? Diabetes insipidus ??? Adrenal insufficiency ??? Panhypopituitarism ??? Seizure disorder ??? Hypothyroidism Resolved Hospital Problems Diagnosis Date Resolved ??? Postoperative anemia due to acute blood loss 12/09/[address] [facility] Active Non-Hospital Problems Diagnosis ??? Insomnia ??? [...] something he normally likes to do at half-way, then try to avail him of that [...] behaviors (rehabilitation) and inability to climb stairs (half-way) - continue to try to make progress w/ measures described above and ongoing PT/OT Team Pager( Coverage 27/01): #[phone] PCP: NAKIA Cifuentes [phone] Attestation: IPI Certification I certify that I am a D-H credentialed attending provider with admitting privileges and that the patient meets or has met medical necessity to require an inpatient IPI level of care meeting a minimumof two midnights or is on the [facility] inpatient only procedure list (status C) due [...] something he normally likes to do at half-way, then try to avail him of that [...] behaviors (rehabilitation) and inability to climb stairs (half-way) - continue to try to make progress w/ measures described above and ongoing PT/OT Team Pager( Coverage 27/01): #[phone] PCP: NAKIA Cifuentes [phone] Attestation: IPI Certification I certify that I [...] Gilliam MD - 12/13/2017 11:10 AM EDT Hospital Medicine Attending Daily Progress Note Admit Date: 09/02/2017 Hospital Day 102 days Active Hospital Problems Diagnosis ??? S/P ORIF left acetabulum fracture 09/04/2017 Dr. Lance ??? Acute urinary retention ??? Diabetes insipidus ??? Adrenal insufficiency ??? Panhypopituitarism ??? Seizure disorder ??? Hypothyroidism Resolved Hospital Problems Diagnosis Date Resolved ??? Postoperative anemia due to acute blood loss 12/09/[address] [facility] Active Non-Hospital Problems Diagnosis ??? Insomnia ??? [...] something he normally likes to do at half-way, then try to avail him of that [...] behaviors (rehabilitation) and inability to climb stairs (half-way) - continue to try to make progress w/ measures described above and ongoing PT/OT Team Pager( Coverage 27/01): #[phone] PCP: NAKIA Cifuentes [phone] Attestation: IPI Certification I certify that I am a D-H credentialed attending provider with admitting privileges and that the patient meets or has met medical necessity to require an inpatient IPI level of care meeting a minimumof two midnights or is on the [facility] inpatient only procedure list (status C) due to: Acetabular fx and hypernatremia FRAN GILLIAM MD 12/13/2017 * Danay Monge MD - 12/12/2017 11:15 AM EDT Hospital Medicine Attending Daily Progress [...] something he normally likes to do at half-way, then try to avail him of that [...] behaviors (rehabilitation) and inability to climb stairs (half-way) - continue to try to make progress w/ measures described above and ongoing PT, respectively Team Pager(MD Coverage 27/01): #[phone] PCP: NAKIA Cifuentes [phone] Attestation: IPI Certification I certify that I am a D-H credentialed attending provider with admitting privileges and that the patient meets or has met medical necessity to require an inpatient IPI level of care meeting a minimumof two midnights or is on the [facility] inpatient only procedure list (status C) due to: Acetabular fx and hypernatremia PCP: NAKIA Cifuentes [phone] DANAY MONGE MD 12/12/2017 * Danay Monge MD - 12/11/2017 12:37 PM EDT Hospital Medicine Attending Daily Progress [...] something he normally likes to do at half-way, then try to avail him of that [...] behaviors (rehabilitation) and inability to climb stairs (half-way) - continue to try to make progress w/ measures described above and ongoing PT, respectively Team Pager( Coverage 27/01): #[phone] PCP: NAKIA Cifuentes [phone] Attestation: IPI Certification I certify that I am a D-H credentialed attending provider with admitting privileges and that the patient meets or has met medical necessity to require an inpatient IPI level of care meeting a minimumof two midnights or is on the [facility] inpatient only procedure list (status C) due to: Acetabular fx and hypernatremia PCP: NAKIA Cifuentes [phone] DANAY MONGE MD 12/11/2017 * Danay Monge [...] something he normally likes to do at half-way, then try to avail him of that [...] behaviors (rehabilitation) and inability to climb stairs (half-way) - continue to try to make progress w/ measures described above and ongoing PT, respectively Team Pager( Coverage 27/01): #[phone] PCP: NAKIA Cifuentes [phone] Attestation: IPI Certification I certify that I am a D-H credentialed attending provider with admitting privileges and that the patient meets or has met medical necessity to require an inpatient IPI level of care meeting a minimumof two midnights or is on the CMS inpatient only procedure list (status C) due to: Acetabular fx and hypernatremia PCP: NAKIA Cifuentes [phone] DANAY MONGE MD 12/10/2017 * Ren Sanchez [...] anemia due to acute blood loss 12/09/[address] [facility] Active Non-Hospital Problems Diagnosis ??? Insomnia ??? [...] something he normally likes to do at half-way, then try to avail him of that [...] behaviors (rehabilitation) and inability to climb stairs (half-way) - continue to try to make progress w/ measures described above and ongoing PT, respectively Team Pager( Coverage 27/01): #[phone] PCP: NAKIA Cifuentes [phone] Attestation: IPI Certification I certify that I am a D-H credentialed attending provider with admitting privileges and that the patient meets or has met medical necessity to require an inpatient IPI level of care meeting a minimumof two midnights or is on the [facility] inpatient only procedure list (status C) due to: Acetabular fx and hypernatremia PCP: NAKIA Cifuentes [phone] REN SANCHEZ III, MD 12/09/2017 * Danay [...] something he normally likes to do at half-way, then try to avail him of that [...] behaviors (rehabilitation) and inability to climb stairs (half-way) - continue to try to make progress w/ measures described above and ongoing PT, respectively Team Pager( Coverage 27/01): #[phone] PCP: NAKIA Cifuentes [phone] Attestation: IPI Certification I certify that I am a D-H credentialed attending provider with admitting privileges and that the patient meets or has met medical necessity to require an inpatient IPI level of care meeting a minimumof two midnights or is on the [facility] inpatient only procedure list (status C) due to: Acetabular fx and hypernatremia PCP: NAKIA Cifuentes [phone] DANAY MONGE MD 12/08/2017 * Danay Monge [...] something he normally likes to do at half-way, then try to avail him of that [...] behaviors (rehabilitation) and inability to climb stairs (half-way) - continue to try to make progress w/ measures described above and ongoing PT, respectively Team Pager(MD Coverage 27/01): #[phone] PCP: NAKIA Cifuentes [phone] Attestation: IPI Certification I certify that I am a D-H credentialed attending provider with admitting privileges and that the patient meets or has met medical necessity to require an inpatient IPI level of care meeting a minimumof two midnights or is on the CMS inpatient only procedure list (status C) due to: Acetabular fx and hypernatremia PCP: NAKIA Cifuentes [phone] DANAY OMNGE MD 12/07/2017 * Danay Monge MD - 12/06/2017 2:30 PM EDT Hospital Medicine Attending Daily Progress [...] something he normally likes to do at half-way, then try to avail him of that [...] behaviors (rehabilitation) and inability to climb stairs (half-way) - continue to try to make progress w/ measures described above and ongoing PT, respectively Team Pager(MD Coverage 27/01): #[phone] PCP: NAKIA Cifuentes [phone] Attestation: IPI Certification I certify that I am a D-H credentialed attending provider with admitting privileges and that the patient meets or has met medical necessity to require an inpatient IPI level of care meeting a minimumof two midnights or is on the [facility] inpatient only procedure list (status C) due to: Acetabular fx and hypernatremia PCP: NAKIA Cifuentes [phone] DANAY MONGE MD 12/06/2017 * Constantino Courtney [...] something he normally likes to do at half-way, then try to avail him of that [...] behaviors (rehabilitation) and inability to climb stairs (half-way) - continue to try to make progress w/ measures described above and ongoing PT, respectively Team Pager( Coverage 27/01): #[phone] PCP: NAKIA Cifuentes [phone] Attestation: IPI Certification I certify that I [...] something he normally likes to do at half-way, then try to avail him of that [...] something he normally likes to do at half-way, then try to avail him of that [...] behaviors (rehabilitation) and inability to climb stairs (half-way) - continue to try to make progress w/ measures described above and ongoing PT, respectively Team Pager( Coverage 27/01): #[phone] PCP: NAKIA Cifuentes [phone] Attestation: IPI Certification I certify that I am a D-H credentialed attending provider with admitting privileges and that the patient meets or has met medical necessity to require an inpatient IPI level of care meeting a minimumof two midnights or is on the [facility] inpatient only procedure list (status C) due [...] something he normally likes to do at half-way, then try to avail him of that [...] something he normally likes to do at half-way, then try to avail him of that [...] behaviors (rehabilitation) and inability to climb stairs (half-way) - continue to try to make progress w/ measures described above and ongoing PT, respectively Team Pager(MD Coverage 27/01): #[phone] PCP: NAKIA Cifuentes [phone] Attestation: IPI Certification I certify that I am a D-H credentialed attending provider with admitting privileges and that the patient meets or has met medical necessity to require an inpatient IPI level of care meeting a minimumof two midnights or is on the [facility] inpatient only procedure list (status C) due to: Acetabular fx and hypernatremia FRAN GILLIAM MD 12/03/2017 * Yadi Mccauley MD - 12/03/2017 2:25 PM EDT ENDOCRINOLOGY FOLLOW UP INPATIENT NOTE [facility] Name: Miguel Angel Mason Date of Consultation: [...] today, suspect left hip pain. Per bedside clinical care coordinator, fluid restriction of 3.2L is being maintained. Urination is unchanged but unable to be truly tracked. Past Surgical History: Procedure Laterality Date ??? PRO OPEN COREMAKING SUPERVISOR FIX ACETABULAR FX Left 09/04/2017 @OPEN TREATMENT, ACETABULAR FX (WRVU 25.41) performed by Amy Lance MD at [facility] MAIN OR Allergies Allergen Reactions ??? Lopid [...] fluid restriction to avoid hyponatremia/over correction --- [place] sodium level 138-145. --- Continue to try [...] something he normally likes to do at half-way, then try to avail him of that [...] something he normally likes to do at half-way, then try to avail him of that [...] behaviors (rehabilitation) and inability to climb stairs (half-way) - continue to try to make progress w/ measures described above and ongoing PT, respectively Team Pager( Coverage 27/01): #[phone] PCP: NAKIA Cifuentes [phone] Attestation: IPI Certification I certify that I [...] not included. ENDOCRINOLOGY FOLLOW UP INPATIENT NOTE [facility] Name: Miguel Angel Mason Date of Consultation: [...] History: Procedure Laterality Date ??? PRO OPEN COREMAKING SUPERVISOR FIX ACETABULAR FX Left 09/04/2017 @OPEN TREATMENT, ACETABULAR FX (WRVU 25.41) performed by Amy Lance MD at [facility] MA[facility] OR Allergies Allergen Reactions ??? Lopid [...] something he normally likes to do at half-way, then try to avail him of that [...] something he normally likes to do at half-way, then try to avail him of that [...] behaviors (rehabilitation) and inability to climb stairs (half-way) - continue to try to make progress w/ measures described above and ongoing PT, respectively Team Pager(MD Coverage 27/01): #[phone] PCP: NAKIA Cifuentes [phone] Attestation: IPI Certification I certify that I am a D-H credentialed attending provider with admitting privileges and that the patient meets or has met medical necessity to require an inpatient IPI level of care meeting a minimumof two midnights or is on the [facility] inpatient only procedure list (status C) due [...] something he normally likes to do at half-way, then try to avail him of that [...] something he normally likes to do at half-way, then try to avail him of that -Check bladder scan prn -Bowel regimen -net bed for safety Panhypopituitarism including DI: Stable -Due to 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 -Appreciate endocrinology recommendations. -Decreased hydrocortisone from 25/04/10 to 20 per endocrine on 11/16 -Increased synthroid to [...] behaviors (rehabilitation) and inability to climb stairs (half-way) - continue to try to make progress w/ measures described above and ongoing PT, respectively Team Pager( Coverage 27/01): #[phone] PCP: NAKIA Cifuentes [phone] Attestation: IPI Certification I certify that I [...] something he normally likes to do at half-way,then try to avail him of that here. [...] something he normally likes to do at half-way, then try to avail him of that -Check bladder scan prn -Bowel regimen -net bed for safety IV access: None Tubes/Drains: None DVT PPX: None as moving alot Anticipated Disposition: Discharge limited by behaviors (rehabilitation) and inability to climb stairs (half-way) - continue to try to make progress w/ measures described above and ongoing PT, respectively Team Pager( Coverage 27/01): #[phone] PCP: NAKIA Cifuentes [phone] Attestation: IPI Certification I certify that I am a D-H credentialed attending provider with admitting privileges and that the patient meets or has met medical necessity to require an inpatient IPI level of care meeting a minimumof two midnights or is on the [facility] inpatient only procedure list (status C) due [...] acetabulum fracture on 09/04/17. He lives in half-way setting on 2nd level and unable to [...] far. Left messages today for: Lc Childress ([facility][1] Grease Maker) [phone], Subha Tejeda [phone] (RN of [facility] oversees the half-way), and patients sister/guardian, Bettina Mason [phone]. To further discuss discharge options. Case management will continue to follow and assist with discharge planning needs. Tricia Gerber RN Case Flexographic Press Set Up Operator of Care Management [email or web address] Pager: [phone] * Debbie Keller DT - 11/28/2017 3:33 [...] Assessment: Patient seen for nutrition follow up. Landscape Laborer able to speak with nursing on pt's [...] Name: Miguel Angel Mason Date: 11/28/17 Room: [facility]155-A HPI: Miguel Angel Mason is a 27 [...] History: Procedure Laterality Date ??? PRO OPEN COREMAKING SUPERVISOR FIX ACETABULAR FX Left 09/04/2017 @OPEN TREATMENT, [...] MD Endocrinology, Diabetes and Metabolism Fellow Pager #[phone] 11/28/2017 I reviewed this patient with Dr Nick . I reviewed the santos portions of the history and physical exam, and reviewed pertinent lab data. I was involved in all medical decision making and agree with this plan. * Ren Sanchez III, MD - 11/28/2017 12:17 PM EDT [facility] Medicine Attending Daily Progress Note Admit Date: [...] -change methocarbamol to PRN -Discharge limited to half-way with behaviors (rehabilitation) and inability to climb stairs (half-way) 2. 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 -Appreciate endocrinology recommendations. 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 Continue to reassess. -Check bladder scan prn -Bowel regimen -Trying a net bed for safety - dc if worsening agitation IV access: None Tubes/Drains: None DVT PPX: None as moving alot Anticipated Disposition: Pending improved mobility and weight bearing status Team Pager( Coverage 27/01): #[phone] PCP: NAKIA Cifuentes [phone] Attestation: IPI Certification I certify that I [...] a more appropriate time. Ren MAYA Pager: [phone] * Celine Power MD - 11/28/2017 6:03 [...] be re-tasked at discharge - please page #[phone] prior to discharge so follow up can be arranged Celine Power MD, PGY-1 Orthopaedic Surgery Pager #: [phone] No future appointments. Associated attestation - Amy [...] -change methocarbamol to PRN -Discharge limited to half-way with behaviors (rehabilitation) and inability to climb stairs (half-way) 2. 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 Continue to reassess. -Check bladder scan prn -Bowel regimen -Trying a net bed for safety - dc if worsening agitation IV access: None Tubes/Drains: None DVT PPX: None as moving alot Anticipated Disposition: Pending improved mobility and weight bearing status Team Pager(MD Coverage 27/01): #[phone] PCP: NAKIA Cifuentes [phone] Attestation: IPI Certification I certify that I am a D-H credentialed attending provider with admitting privileges and that the patient meets or has met medical necessity to require an inpatient IPI level of care meeting a minimumof two midnights or is on the [facility] inpatient only procedure list (status C) due to: Acetabular fx and hypernatremia REN SANCHEZ III, MD 11/27/2017 * Ren Sanchez III, MD - 11/26/2017 11:42 AM EDT Hospital Medicine Attending Daily Progress [...] expressing himself -d/c methocarbamol -Discharge limited to half-way with behaviors (rehabilitation) and inability to climb stairs (half-way) 2. 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 -Appreciate endocrinology recommendations. -Decreased hydrocortisone from 20// to 20/10 per endocrine on 5/13 -Increased synthroid to 200 mcg 11/23. 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 Continue to reassess. -Check bladder scan prn -Bowel regimen -Trying a net bed for safety - dc if worsening agitation IV access: None Tubes/Drains: None DVT PPX: None as moving alot Anticipated Disposition: Pending improved mobility and weight bearing status Team Pager( Coverage 27/01): #[phone] PCP: NAKIA Cifuentes [phone] Attestation: IPI Certification I certify that I [...] gm TID on 11/24) -Discharge limited to half-way with behaviors (rehabilitation) and inability to climb stairs (half-way) 2. 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 Continue to reassess. -Check bladder scan prn -Bowel regimen -Trying a net bed for safety - dc if worsening agitation IV access: None Tubes/Drains: None DVT PPX: Lovenox Anticipated Disposition: Pending improved mobility and weight bearing status Team Pager( Coverage 27/01): #[phone] PCP: NAKIA Cifuentes [phone] Attestation: IPI Certification I certify that I [...] RN - 11/25/2017 4:17 AM EDT 11/24/17-11/25/17 [id number] Patient is not wearing masimo due to safety reasons and baseline cognitive status. Spot checks withVS have been done and are WNL. Will continue to monitor. * Ren Sanchez III, MD - 11/24/2017 10:54 AM EDT Hospital Medicine Attending Daily Progress [...] to suggest infection. 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 Continue to reassess. -Check bladder scan prn -Bowel regimen -Trying a net bed for safety - dc if worsening agitation IV access: None Tubes/Drains: None DVT PPX: Lovenox Anticipated Disposition: Pending improved mobility and weight bearing status Team Pager( Coverage 27/01): #[phone] PCP: NAKIA Cifuentes [phone] Attestation: IPI Certification I certify that I am a D-H credentialed attending provider with admitting privileges and that the patient meets or has met medical necessity to require an inpatient IPI level of care meeting a minimumof two midnights or is on the [facility] inpatient only procedure list (status C) due to: Acetabular fx and hypernatremia REN SANCHEZ III, MD 11/24/2017 * Shruti Lozoya RN - 11/24/2017 6:09 AM EDT 11/23/17-11/24/17 [id number] Patient not wearing masimo due to safety reasons. Pt is not safe to have cords in place due to baseline cognitive status. Will continue to monitor. * Ren Sanchez III, MD - 11/23/2017 11:28 AM EDT Hospital Medicine Attending Daily Progress Note Admit Date: 09/02/2017 Hospital Day 82 days Active Hospital Problems Diagnosis ??? S/P ORIF left acetabulum fracture 09/04/2017 Dr. Lacne ??? Postoperative anemia due to acute blood [...] to suggest infection. 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 Continue to reassess. -Check bladder scan prn -Bowel regimen -Trying a net bed for safety - dc if worsening agitation IV access: None Tubes/Drains: None DVT PPX: Lovenox Anticipated Disposition: Pending improved mobility and weight bearing status Team Pager(MD Coverage 27/01): #[phone] PCP: NAKIA Cifuentes [phone] Attestation: IPI Certification I certify that I am a D-H credentialed attending provider with admitting privileges and that the patient meets or has met medical necessity to require an inpatient IPI level of care meeting a minimumof two midnights or is on the [facility] inpatient only procedure list (status C) due [...] to suggest infection. 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 -Discharge limited to half-way with behaviors (rehabilitation) and inability to climb stairs (half-way) 2. 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 Continue to reassess. -Check bladder scan prn -Bowel regimen -Trying a net bed for safety - dc if worsening agitation IV access: None Tubes/Drains: None DVT PPX: Lovenox Anticipated Disposition: Pending improved mobility and weight bearing status Team Pager(MD Coverage 27/01): #[phone] PCP: NAKIA Cifuentes [phone] Attestation: IPI Certification I certify that I am a D-H credentialed attending provider with admitting privileges and that the patient meets or has met medical necessity to require an inpatient IPI level of care meeting a minimumof two midnights or is on the [facility] inpatient only procedure list (status C) due to: Acetabular fx and hypernatremia REN SANCHEZ III, MD 11/22/2017 * Crista Aguilar MD - 11/21/2017 11:26 AM EDT Hospital Medicine Attending Daily Progress [...] to suggest infection. Treating pain as possible local flatbed driver thoughcontinue to assess as has been [...] PO TID for musclespasms. 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 -Appreciate endocrinology recommendations. 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 Continue to reassess. -Check bladder scan prn -Bowel regimen -Trying a net bed today for safety - dc if worsening agitation IV access: None Tubes/Drains: None DVT PPX: Lovenox Anticipated Disposition: Pending improved mobility and weight bearing status Team Pager( Coverage 27/01): #[phone] PCP: NAKIA Cifuentes [phone] Attestation: IPI Certification I certify that I [...] devices at all times. Celine Power MD #[id number] Associated attestation - Amy Lance MD - [...] to suggest infection. 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 Continue to reassess. -Check bladder scan prn -Bowel regimen -Trying a net bed today for safety - dc if worsening agitation IV access: None Tubes/Drains: None DVT PPX: Lovenox Anticipated Disposition: Pending improved mobility and weight bearing status Team Pager( Coverage 27/01): #[phone] PCP: NAKIA Cifuentes [phone] Attestation: IPI Certification I certify that I am a D-H credentialed attending provider with admitting privileges and that the patient meets or has met medical necessity to require an inpatient IPI level of care meeting a minimumof two midnights or is on the [facility] inpatient only procedure list (status C) due to: Acetabular fx and hypernatremia Crista Aguilar MD 11/20/2017 * Louis Doran, PRESSURISED CONTAINER FILLER - 11/20/2017 1:32 PM EDT Physical Therapy Treatment Note Attempted to see pt twice today however pt was agitated and not following directions well. Will follow up with pt at a later date. Pager: [phone] [place]AN, ROMEL Physical Therapy Rehabilitation Department * Ren Walters [...] at a later time. Ren MAYA Pager: [phone] * Crista Aguilar MD - 11/19/2017 10:43 [...] to suggest infection. 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 Continue to reassess. -Check bladder scan prn -Bowel regimen IV access: None Tubes/Drains: None DVT PPX: Lovenox Anticipated Disposition: Pending improved mobility Team Pager(MD Coverage 27/01): #[phone] PCP: NAKIA Cifuentes [phone] Attestation: IPI Certification I certify that I am a D-H credentialed attending provider with admitting privileges and that the patient meets or has met medical necessity to require an inpatient IPI level of care meeting a minimumof two midnights or is on the [facility] inpatient only procedure list (status C) due to: Acetabular fx and hypernatremia Crista Aguilar MD 11/19/2017 * Crista Aguilar MD - 11/18/2017 4:36 PM EDT [facility] Medicine Attending Daily Progress Note Admit Date: [...] on my visit today. Spoke with caregiver, PHARMACY DIRECTOR and having a calmer day. No reported [...] to suggest infection. 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 Continue to reassess. -Check bladder scan prn -Bowel regimen IV access: None Tubes/Drains: None DVT PPX: Lovenox Anticipated Disposition: Pending improved mobility Team Pager( Coverage 27/01): #[phone] PCP: NAKIA Cifuentes [phone] Attestation: IPI Certification I certify that I am a D-H credentialed attending provider with admitting privileges and that the patient meets or has met medical necessity to require an inpatient IPI level of care meeting a minimumof two midnights or is on the [facility] inpatient only procedure list (status C) due [...] Diagnosis Date Resolved [facility]. [facility] Active Non-Hospital Problems Diagnosis ??? Insomnia [...] Lytes Recent Labs 11/17/17 0909 11/17/17 0511 11/16/172 NA 139 138 142 K 3.4* 3.4* [...] to suggest infection. 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 2. 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 Continue to reassess. -Check bladder scan prn -Bowel regimen IV access: None Tubes/Drains: None DVT PPX: Lovenox Anticipated Disposition: Pending improved mobility Team Pager( Coverage 27/01): #[phone] PCP: NAKIA Cifuentes [phone] Attestation: IPI Certification I certify that I am a D-H credentialed attending provider with admitting privileges and that the patient meets or has met medical necessity to require an inpatient IPI level of care meeting a minimumof two midnights or is on the [facility] inpatient only procedure list (status C) due to: Acetabular fx and hypernatremia Crista Aguilar MD 11/17/2017 Addendum: Called for patient falling from bed. Apparently was on edge of bed, lunged forward and fell on leftside. May have hit head. No focal bruising, swelling on scalp. Incinerator Plant Supervisor 5/5, strength in legs observed symmetric. Right [...] to suggest infection. 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 -Appreciate endocrinology recommendations. 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 Continue to reassess. -Check bladder scan -Bowel regimen IV access: None Tubes/Drains: None DVT PPX: Lovenox Anticipated Disposition: Pending improved mobility Team Pager( Coverage 27/01): #[phone] PCP: NAKIA Cifuentes [phone] Attestation: IPI Certification I certify that I [...] 49 mmol/L U Chloride 75 mmol/L Specific [place], Urine Result Value Ref Range Spec [place] UA 1.025 1.002 - 1.030 Assessment: 27 [...] down on his maintenance hydrocortisone dose from 20 to 20mg po AM and 10mg po [...] them as documented. Neo Coleman DO, MS Employee Representativeintrusion analyst Section of Endocrinology [facility] * Crista Aguilar MD - 11/15/2017 10:30 [...] that amount. They record intake at his half-way. Physical Exam Vitals Range last 24 hrs [...] behaviors (rehabilitation) and inability to climb stairs (half-way). -Prior attending discussed with orthopedics due to [...] at home and when last seen by Endo early October. Has been increased since then [...] Pending improved mobility Team Pager( Coverage 27/01): #[phone] PCP: NAKIA Cifuentes [phone] Attestation: IPI Certification I certify that I [...] ATTENDING DAILY PROGRESS NOTE Patient: Miguel Angel Sweettomy, 1990, [id number] Physician: Yossi Morin DO, Pager: [phone], [facility] Medicine Service Admit Date: 09/02/2017 Date of [...] behaviors (rehabilitation) and inability to climb stairs (half-way). Discussed with orthopedics due to increasing pain [...] to look for alternative placement in a half-way. IPI Certification I certify that I am a D-H credentialed attending provider with admitting privileges and that the patient meets or has met medical necessity to require an inpatient IPI level of care meeting a minimumof two midnights or is on the [facility] inpatient only procedure list (status C) due to: the patient has met Inpatient IPI criteria and is awaiting rehabilitation or [place] placement withactive referrals in process MEDICATIONS: [...] TID PRN Yossi Morin DO 2700 Hospitalist 11/14/2017 2:52 PM * Celine Power [...] reasonable to consider XR. Celine Power MD #[id number] * Yossi Morin DO - 11/13/2017 1:36 PM EDT [facility] MEDICINE ATTENDING DAILY PROGRESS NOTE Patient: Miguel Angel Mason, 1990, [id number] Physician: Yossi Morin DO, Pager: [phone], [facility] Medicine Service Admit Date: 09/02/2017 Date of [...] behaviors (rehabilitation) and inability to climb stairs (half-way). 2. Panhypopituitarism: Due to prior pituitary tumor [...] to look for alternative placement in a half-way. IPI Certification I certify that I am a D-H credentialed attending provider with admitting privileges and that the patient meets or has met medical necessity to require an inpatient IPI level of care meeting a minimumof two midnights or is on the [facility] inpatient only procedure list (status C) due to: the patient has met Inpatient IPI criteria and is awaiting rehabilitation or [place] [facility] [place] facility placement withactive referrals in process MEDICATIONS: [...] 2700 Hospitalist 11/13/2017 1:36 PM * Debbie Keller, DT - 11/13/2017 1:22 PM EDT Nutrition Services - Follow-up Note Miguel Angel Pop Isabella : 1990 AGE: 27 y.o. Patient [...] Assessment: Patient seen for nutrition follow up. Landscape Laborer able to speak with nursing on pt's [...] be re-tasked at discharge - please page #[phone] prior to discharge so follow up can be arranged. If remains inpatient, will plan on repeat imaging ~11/18 to assess interval healing (will be almost 11 weeks form operation) Celine Power MD, PGY-1 Orthopaedic Surgery Pager #: [phone] Future Appointments Date Time Provider Department Center 11/21/2017 10:45 AM [facility] DX ROOM 2 Xray [facility] 11/21/2017 11:40 AM Amy Lance MD [facility] Associated attestation - Amy Lance MD - 11/15/2017 7:05 AM EDT Patient seen and examined. Agree with resident note. Plan for 10 week follow-up this week. Mandy Lance MD Department of Orthopaedics 11/15/17 * Yossi Morin DO - 11/12/2017 1:10 PM EDT [facility] MEDICINE ATTENDING DAILY PROGRESS NOTE Patient: Miguel Angel Mason, 1990, [id number] Physician: Yossi Morin DO, Pager: [phone], [facility] Medicine Service Admit Date: 09/02/2017 Date of [...] behaviors (rehabilitation) and inability to climb stairs (half-way). 2. Panhypopituitarism: Due to prior pituitary tumor [...] to look for alternative placement in a half-way. IPI Certification I certify that I am a D-H credentialed attending provider with admitting privileges and that the patient meets or has met medical necessity to require an inpatient IPI level of care meeting a minimumof two midnights or is on the [facility] inpatient only procedure list (status C) due to: the patient has met Inpatient IPI criteria and is awaiting rehabilitation or [place] [facility] [place] facility placement withactive referrals in process MEDICATIONS: [...] PRN naphazoline-pheniramine 1 drop TID PRN Yossi oMrin DO 2700 Hospitalist 11/12/2017 1:10 PM * Noel Martinez OTA - 11/12/2017 11:44 AM EDT Occupational Therapy note: Pt not appropriate for skilled OT at this time due to agitation. Will follow up when patient is more appropriate. Noel HORNE Pager:[phone] Occupational Therapy * Tricia Gerber RN - 11/11/2017 4:21 PM EDT Case reviewed in eDH and with interdisciplinary team. Per MD patient is medically ready for discharge. Case management has been working on discharge plan. Referrals have been submitted to SNF's throughout [place]. [place] [facility] [place] Lc Childress [phone] and Subha Tejeda [phone]. To further discuss discharge options. Tricia Gerber RN Case Flexographic Press Set Up Operator of Care Management [email or web address] Pager: [phone] * Yossi Morin DO - 11/11/2017 3:18 PM EDT HOSPITAL MEDICINE ATTENDING DAILY PROGRESS NOTE Patient: Miguel Angel Sweettomy, 1990, [id number] Physician: Yossi Morin DO Pager: [phone], [facility] Medicine Service Admit Date: 09/02/2017 Date of [...] behaviors (rehabilitation) and inability to climb stairs (half-way). 2. Panhypopituitarism: Due to prior pituitary tumor [...] to look for alternative placement in a half-way. IPI Certification I certify that I am a D-H credentialed attending provider with admitting privileges and that the patient meets or has met medical necessity to require an inpatient IPI level of care meeting a minimumof two midnights or is on the [facility] inpatient only procedure list (status C) due to: the patient has met Inpatient IPI criteria and is awaiting rehabilitation or [place] facility placement withactive referrals in process MEDICATIONS: [...] 1 drop TID PRN Yossi Morin DO 3367 Hospitalist 11/11/2017 3:18 PM * Yossi Morin DO - 11/10/2017 2:21 PM EDT HOSPITAL MEDICINE ATTENDING DAILY PROGRESS NOTE Patient: Miguel Angel Mason, 1990, [id number] Physician: Yossi Morin DO, Pager: [phone], Hospital Medicine Service Admit Date: 09/02/2017 Date [...] behaviors (rehabilitation) and inability to climb stairs (half-way). 2. Panhypopituitarism: Due to prior pituitary tumor [...] to look for alternative placement in a half-way. IPI Certification I certify that I am a D-H credentialed attending provider with admitting privileges and that the patient meets or has met medical necessity to require an inpatient IPI level of care meeting a minimumof two midnights or is on the [facility] inpatient only procedure list (status C) due to: the patient has met Inpatient IPI criteria and is awaiting rehabilitation or [place] placement withactive referrals in process MEDICATIONS: [...] TID PRN Yossi Morin DO 2700 Hospitalist 11/10/2017 2:21 PM * Isabell Laureano RN - 11/09/2017 8:11 PM EDT Pt alert, disoriented, transferred to 1 E this early evening. Cooperative with medication regimen. Tachycardic during the shift, agitated, redirectable with play. Had good appetite for dinner. Sitterat bedside. Continue to monitor, safety maintained. * Jeannette Don RN - 11/09/2017 4:06 PM EDT Pt being transferred to [facility]. Report given to HEATHER. Jeannette Don RN * Yossi Morin DO - 11/09/2017 12:18 PM EDT [facility] MEDICINE ATTENDING DAILY PROGRESS NOTE Patient: Miguel Angel Mason, 1990, [id number] Physician: Yossi Morin DO, Pager: [phone], [facility] Medicine Service Admit Date: 09/02/2017 Date of [...] minimumof two midnights or is on the [facility] inpatient only procedure list (status C) due to: the patient has met Inpatient IPI criteria and is awaiting rehabilitation or [place] facility placement withactive referrals in process MEDICATIONS: [...] 1 drop TID PRN Yossi Morin DO 0981 Hospitalist 11/09/2017 12:20 PM * Yosis Morin DO - 11/08/2017 2:47 PM EDT [facility] MEDICINE ATTENDING DAILY PROGRESS NOTE Patient: Miguel Angel Mason, 1990, [id number] Physician: Yossi Morin DO, Pager: [phone], [facility] Medicine Service Admit Date: 09/02/2017 Date of [...] IPI criteria and is awaiting rehabilitation or [place] facility placement withactive referrals in process MEDICATIONS: [...] IPI criteria and is awaiting rehabilitation or [place] health [place] facility placement withactive referrals in process Team Pager( Coverage 27/01): #[phone] PCP: NAKIA Cifuentes [phone] Iasbel Donis MD 11/07/2017 * Isabel Donis MD [...] minimumof two midnights or is on the [facility] inpatient only procedure list (status C) due to: the patient has met Inpatient IPI criteria and is awaiting rehabilitation or [place] facility placement withactive referrals in process Team Pager( Coverage 27/01): #[phone] PCP: NAKIA Cifuentes [phone] Isabel Donis MD 11/06/2017 * Isabel Donis MD - 11/05/2017 3:46 PM EDT Hospital Medicine Attending Daily Progress [...] minimumof two midnights or is on the [facility] inpatient only procedure list (status C) due to: the patient has met Inpatient IPI criteria and is awaiting rehabilitation or [place] health [place] facility placement withactive referrals in process Team Pager( Coverage 27/01): #[phone] PCP: NAKIA Cifuentes [phone] Isabel Donis MD 11/05/2017 * Isabel Donis [...] minimumof two midnights or is on the [facility] inpatient only procedure list (status C) due to: the patient has met Inpatient IPI criteria and is awaiting rehabilitation or [place] facility placement withactive referrals in process Team Pager(MD Coverage 27/01): #[phone] PCP: NAKIA Cifuentes [phone] Isabel Donis MD 11/04/2017 * Celine Power [...] be re-tasked at discharge - please page #[phone] prior to discharge so follow up can be arranged. If remains inpatient, will plan on repeat imaging about 11/18 to assess interval healing Celine Power MD, PGY-1 Orthopaedic Surgery Pager #: [phone] Future Appointments Date Time Provider Department Center 11/21/2017 10:45 AM [facility] DX ROOM 2 Xray Leb Rad Clin [...] minimumof two midnights or is on the [facility] inpatient only procedure list (status C) due to: the patient has met Inpatient IPI criteria and is awaiting rehabilitation or [place] facility placement withactive referrals in process Team Pager(MD Coverage 27/01): #[phone] PCP: NAKIA Cifuentes [phone] Isabel Donis MD 11/03/2017 * Isabel Donis [...] IPI criteria and is awaiting rehabilitation or [place] health [place] facility placement withactive referrals in process Team Pager( Coverage 27/01): #[phone] PCP: NAKIA Cifuentes [phone] Isabel Donis MD 11/02/2017 * Isabel Donis [...] IPI criteria and is awaiting rehabilitation or [place] health [place] facility placement withactive referrals in process Team Pager( Coverage 27/01): #[phone] PCP: NAKIA Cifuentes [phone] Isabel Donis MD 11/01/2017 * Samson Alvarez - 10/31/2017 2:55 PM EDT [employer] Encounter Note Patient Name: Miguel Angel Mason : [id number] MR#: [id number] Admit Date: 09/02/2017 9:23 PM Hospital Day 59 days Narrative: Visited to introduce and assess acceptance of [employer] services. Assessment: Patient coping positively with stresses of illness/hospitalization at this time. Mr. Huggins was there and says that Miguel Angel is slowly feeling better. 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 Intervention and Outcome:provided listening presence to care provider. [employer] services accepted.Conversation to build trusting relationship.Provided pastoral presence. Follow-up: yes Time in Direct Care:15 Mins Samson Alvarez 10/31/2017 * Ren Walters OTA - 10/31/2017 11:30 AM EDT Attempted to see pt this morning, pt currently working with PT. Will attempt again at a later time. Ren MAYA Pager: [phone] * Dillon Koch MD - 10/31/2017 7:59 [...] IPI criteria and is awaiting rehabilitation or [place] health [place] facility placement withactive referrals in process Team Pager( Coverage 27/01): #[phone] PCP: NAKIA Cifuentes [phone] DILLON KOCH MD 10/31/2017 * Krishna Debbie L, DT - 10/30/2017 2:47 PM EDT Nutrition [...] Assessment: Patient seen for nutrition follow up. Landscape Laborer able to speak with pt's caregiver (Soila) on pt's nutritional care. Soila reported a good appetite without difficulty chewing or swallowing. He is tolerating current diet without nausea or vomiting. Soila stated pt consumed oj, chocolate milk, 1/2 fruit cup (still working on), home fries, 1/4 cameroonian toast, sausage, and white toast. Soila stated, he was really tired this morning. He didn't sleep well last night. Nursing notes [id number]% PO intake on 10/29, 10/28, + 10/27. [...] at a more appropriate time. Ren MAYA Pager:[phone] * Dillon Koch MD - 10/30/2017 7:58 [...] IPI criteria and is awaiting rehabilitation or [place] health [place] facility placement withactive referrals in process Team Pager(MD Coverage 27/01): #[phone] PCP: NAKIA Cifuentes [phone] DILLON KOCH MD 10/30/2017 * Dillon Koch [...] minimumof two midnights or is on the [facility] inpatient only procedure list (status C) due to: the patient has met Inpatient IPI criteria and is awaiting rehabilitation or [place] health [place] facility placement withactive referrals in process Team Pager( Coverage 27/01): #[phone] PCP: NAKIA Cifuentes [phone] DILLON KOCH MD 10/29/2017 * Dillon Koch MD - 10/28/2017 7:52 AM EDT [facility] Medicine Attending Daily Progress Note Admit Date: [...] IPI criteria and is awaiting rehabilitation or [place] health [place] facility placement withactive referrals in process Team Pager( Coverage 27/01): #[phone] PCP: NAKIA Cifuentes [phone] DILLON KOCH MD 10/28/2017 * Skyla Aranda [...] be re-tasked at discharge - please page #[phone] prior to discharge so follow up can be arranged. Skyla Aranda MD, PGY-1 Orthopaedic Surgery Pager #: [phone] Future Appointments Date Time Provider Department Center 11/21/2017 10:45 AM [facility] DX ROOM 2 Xray Leb Rad Clin [...] Date Resolved No resolved problems to display. [facility] Active Non-Hospital Problems Diagnosis ??? Insomnia ??? [...] minimumof two midnights or is on the [facility] inpatient only procedure list (status C) due to: the patient has met Inpatient IPI criteria and is awaiting rehabilitation or [place] health [place] facility placement withactive referrals in process Team Pager(MD Coverage 27/01): #[phone] PCP: NAKIA Cifuentes [phone] DILLON KOCH MD 10/27/2017 * Dillon Koch [...] minimumof two midnights or is on the [facility] inpatient only procedure list (status C) due to: the patient has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 medically ready for D/C but SW is having a hard time with placement. The SW reached out to Noel Estrella [phone]: [facility] Dept of Aging and [place], Developmental Services Specialist and Lc Martinez [phone]: Director [facility],as well as Subha Tejeda [phone] is the RN of [facility] who oversees the half-way. Miguel Angel states that she is the nurse for the home where the pt is and when she spoke with Lc, he says that the pt does need to D/C from the hospital and he was trying to work on a plan. The SW also spoke with Noel from [facility] who states that she is willing to authorize additional services in any facility the pt transfers to, to try and accommodate that staff at the facility. The SW was unable to talk to Lc but did leave a voice mail for a return call. [facility] of [facility] pt being in the hospital and the placement issues. Noel states she will be talking to Lc today to try and come up with a different plan. PRANEETH to continue working with the pt on D/C planning. * Reba Linton MD - 10/02/2017 4:44 PM EDT [facility] Medicine Daily Progress Note Admit Date: 09/02/2017 [...] Lytes Recent Labs 10/02/17 1214 10/02/17 0545 10/01/172021 NA 146* 143 139 K 4.3 4.0 [...] to autonomic instability related to hx of FORK OPERATOR insults described above?? Diet Regular diet Discharge planning No rehab acceptances as of yet. His current half-way is unable to find first floor room for him. CM working with [facility] for further options. Lines/Access None Morse catheter None DVT Prophylaxis Enoxaparin Code status FULL Team Pager [phone] PCP NAKIA Cifuentes Attestation IPI Certification I certify that I am a D-H credentialed attending provider with admitting privileges and that the patient meets or has met medical necessity to require an inpatient IPI level of care meeting a minimumof two midnights or is on the [facility] inpatient only procedure list (status C) due to: the patient has met Inpatient IPI criteria and is awaiting rehabilitation or [place] facility placement withactive referrals in process REBA [...] early, guide him to the chair Pager: [phone] L[place]IS DORAN PTA Physical Therapy Rehabilitation Department * Guerrero Bah MD - 10/01/2017 3:28 PM EDT Images from the original note were not included. Endocrinology Follow up note Name: Miguel Angel Mason Date: 10/01/17 Room: 312/[facility]- HPI: Miguel Angel Mason??is a 27 y.o.male??with [...] History: Procedure Laterality Date ??? PRO OPEN COREMAKING SUPERVISOR FIX ACETABULAR FX Left 09/04/2017 @OPEN TREATMENT, [...] MD Endocrinology, Diabetes and Metabolism Fellow Pager #[phone] 10/01/2017 Associated attestation - Genevieve Page MD - 10/01/2017 6:59 PM EDT I discussed this patient with Dr. Niles Tillman. I reviewed the santos portions of the history and physical exam, and reviewed pertinent lab data. I was involved in all medical decision making and agree with this plan. GENEVIEVE PAGE MD Employee Representativeintrusion analyst Section of Endocrinology [facility] * Kurt Blanco Sunni - 10/01/2017 3:23 PM EDT Nutrition Services [...] in the interim. ADAM Kathleen Pager # [phone] * Samson Alvarez 10/01/2017 3:10 PM EDT Drum Loader And Unloader Encounter Note Patient Name: Miguel Angel Mason : [id number] MR#: [id number] Admit Date: 09/02/2017 9:23 PM Hospital Day [...] 3.8 4.0 CL 97* 93* 91* CO2 24 24 27 BUN 12 13 16 CREATININE 0.78* [...] to autonomic instability related to hx of FORK OPERATOR insults described above?? Diet Regular diet Discharge planning No rehab acceptances as of yet. His current half-way is unable to find first floor room for him. CM working with [facility] for further options. Lines/Access None Morse catheter None DVT Prophylaxis Enoxaparin Code status FULL Team Pager [phone] PCP NAKIA Cifuentes Attestation IPI Certification I certify that I am a D-H credentialed attending provider with admitting privileges and that the patient meets or has met medical necessity to require an inpatient IPI level of care meeting a minimumof two midnights or is on the [facility] inpatient only procedure list (status C) due to: the patient has met Inpatient IPI criteria and is awaiting rehabilitation or [place] facility placement withactive referrals in process REBA [...] agree with this plan. GENEVIEVE PAGE MD Employee Representativeintrusion analyst Section of Endocrinology [facility] * Reba Linton MD - [...] to autonomic instability related to hx of FORK OPERATOR insults described above?? Diet Regular diet Discharge planning No rehab acceptances as of yet. His current half-way is unable to find first floor room for him. CM working with [facility] for further options. Lines/Access None Morse catheter None DVT Prophylaxis Enoxaparin Code status FULL Team Pager [phone] PCP NAKIA Cifuentes Attestation IPI Certification I certify that I am a D-H credentialed attending provider with admitting privileges and that the patient meets or has met medical necessity to require an inpatient IPI level of care meeting a minimumof two midnights or is on the [facility] inpatient only procedure list (status C) due to: the patient has met Inpatient IPI criteria and is awaiting rehabilitation or [place] facility placement withactive referrals in process REBA LINTON MD * Guerrero Bah MD - 09/30/2017 3:10 PM EDT Images from the original note were not included. Endocrinology Follow up note Name: Miguel Angel Mason Date: 09/30/17 Room: [address] [place] [address] HPI: Miguel Angel Mason is a 27 [...] been difficultto document urine output. Spoke with clinical care coordinator at the bedside and at home the patient is on a 110 oz fluid restriction (3,000 mL). While in the hospital he is fluid restricted to 3,000 mL. No IV fluids given. No past medical history on file. Past Surgical History: Procedure Laterality Date ??? PRO OPEN COREMAKING SUPERVISOR FIX ACETABULAR FX Left 09/04/2017 @OPEN TREATMENT, [...] Latest Ref Range: 22 - 31 mmol/L Anion Gap Latest Ref Range: 5 - [...] MD Endocrinology, Diabetes and Metabolism Fellow Pager #[phone] 09/30/2017 ' Associated attestation - Genevieve Page MD - 09/30/2017 4:49 PM EDT I discussed this patient with Dr. Niles Tillman. I reviewed the santos portions of the history and physical exam, and reviewed pertinent lab data. I was involved in all medical decision making and agree with this plan. GENEVIEVE PAGE MD Employee Representativeintrusion analyst Section of Endocrinology [facility] * Desean De Oliveira W [...] to autonomic instability related to hx of FORK OPERATOR insults described above?? Diet Regular diet Discharge planning No rehab acceptances as of yet. His current half-way is unable to find first floor room for him. CM working with [facility] for further options. Lines/Access None Morse catheter None DVT Prophylaxis Enoxaparin Code status FULL Team Pager [phone] PCP NAKIA Cifuentes Attestation IPI Certification I [...] IPI criteria and is awaiting rehabilitation or [place] facility placement withactive referrals in process REBA LINTON MD * Guerrero Bah MD - 09/29/2017 11:38 AM EDT Images from the original note were not included. Endocrinology Follow up note Name: Miguel Angel Mason Date: 09/29/17 Room: [address] [place] [address] HPI: Miguel Angel Mason is a 27 [...] bedside, he was laying comfortably, alert. Patient's clinical care coordinator was at the bedside and according to her, he is at baseline neurologically. No past medical history on file. Past Surgical History: Procedure Laterality Date ??? PRO OPEN COREMAKING SUPERVISOR FIX ACETABULAR FX Left 09/04/2017 @OPEN TREATMENT, [...] MD Endocrinology, Diabetes and Metabolism Fellow Pager #[phone] 09/29/2017 Associated attestation - Genevieve Page MD - 09/29/2017 5:38 PM EDT I discussed this patient with Dr. Niles Tillman. I reviewed the santos portions of the history and physical exam, and reviewed pertinent lab data. I was involved in all medical decision making and agree with this plan. GENEVIEVE PAGE MD Employee Representativeintrusion analyst Section of Endocrinology [facility] * Tez Tate MSW - 09/29/2017 9:51 AM EDT PRANEETH reviewed the pt chart, the pt is still in need of placement. PRANEETH received an email from care management asking to give the pt guardian a call to update. The SW called the pt sister Bettina on her cell phone and work phone. PRANEETH left a for a return call. SW to remain available to assist with D/C planning and coordination. * Samson Alvarez - 09/28/2017 3:52 PM EDT Drum Loader And Unloader Encounter Note Patient Name: Miguel Angel Mason : [id number] MR#: [id number] Admit Date: 09/02/2017 9:23 PM Hospital Day [...] to autonomic instability related to hx of FORK OPERATOR insults described above?? Diet Regular diet Discharge planning No rehab acceptances as of yet. His current half-way is unable to find first floor room for him. CM working with [facility] for further options. Lines/Access None Morse catheter None DVT Prophylaxis Enoxaparin Code status FULL Team Pager [phone] PCP NAKIA Cifuentes Attestation IPI Certification I certify that I am a D-H credentialed attending provider with admitting privileges and that the patient meets or has met medical necessity to require an inpatient IPI level of care meeting a minimumof two midnights or is on the [facility] inpatient only procedure list (status C) due to: the patient has met Inpatient IPI criteria and is awaiting rehabilitation or [place] facility placement withactive referrals in process REBA [...] them as documented. Neo Coleman DO, MS Employee Representativeintrusion analyst Section of Endocrinology [facility] * Reba Linton MD - 09/27/2017 3:36 [...] to autonomic instability related to hx of FORK OPERATOR insults described above?? Diet Regular diet Discharge planning Medically stable for discharge. No rehab acceptances as of yet. His current half-way is unable to find first floor room for him. CM working with [facility] for further options. Lines/Access None Morse catheter None DVT Prophylaxis Enoxaparin Code status FULL Team Pager [phone] PCP NAKIA Cifuentes Attestation IPI Certification I certify that I am a D-H credentialed attending provider with admitting privileges and that the patient meets or has met medical necessity to require an inpatient IPI level of care meeting a minimumof two midnights or is on the [facility] inpatient only procedure list (status C) due to: the patient has met Inpatient IPI criteria and is awaiting rehabilitation or [place] facility placement withactive referrals in process REBA [...] Diagnosis Date Resolved No resolved problems to [facility] hospital. [facility] Active Non-Hospital Problems Diagnosis ??? Insomnia [...] to autonomic instability related to hx of FORK OPERATOR insults described above?? IV access: none Tubes/Drains: none DVT PPX: Lovenox 40mg QHS Anticipated Disposition: Medically stable for discharge. No rehab acceptances as of yet. His current half-way is unable to find first floor room for him. LUCAS working with [facility] for further options. Goals of Care: Full code Team Pager( Coverage 27/01): #[phone] PCP: NAKIA Cifuentes [phone] Kya Enriquez MD 09/26/2017 * Gabe Marinelli [...] to autonomic instability related to hx of FORK OPERATOR insults described above?? IV access: none Tubes/Drains: none DVT PPX: Lovenox 40mg QHS Anticipated Disposition: Medically stable for discharge. No rehab acceptances as of yet. His current half-way is unable to find first floor room for him. CM working with [facility] for further options. Goals of Care: Full code Team Pager(MD Coverage 27/01): #[phone] PCP: NAKIA Cifuentes [phone] Kya Enriquez MD 09/25/2017 * Debbie Keller, DT - 09/24/2017 3:55 PM EDT Nutrition Services - Follow-up Note Miguel Angel Sweettomy : 1990 AGE: 27 y.o. Patient Active [...] noted. Assessment: Patient seen for follow up. Landscape Laborer able to speak with nursing on pt's [...] 09/24/2017 11:13 AM EDT Office of Care Management(OCM)/Grease Maker(CM)/Discharge Planning Service: Medicine Pager # [phone] CM Minerva Boyce RN,BSN,MA,ACM pgr [phone] ?? Called Guardian /sister Bettina to update w d/c planning and pt status. Updated that: Is in room w cande lift so will be making transfers to chair, w/c etc. Staff working to find safe plan to help him w stand pivot that is safe for pt(requires 2 staff) andfor the staff as he gets combative - grabs hard, pinches etc. [facility] Director and Vt Disabilities looking for first floor room. ? Agreed RNCM will call Mon/Wed/Fri w updates. Provided pagr [phone] as contact pgr for now and she knows Darren may [...] dtermined by XRAY ?? 09/23: Met w [facility] director Lc Ny while he was visiting with pt. Barriers reviewed and remain unchanged. I notified him I had also had contact w Noel Estrella [facility] Dept of Aging /[employer] Developmental Services Specialist [...] to autonomic instability related to hx of FORK OPERATOR insults described above?? IV access: none Tubes/Drains: none DVT PPX: Lovenox 40mg QHS Anticipated Disposition: Medically stable for discharge. No rehab acceptances as of yet. His current half-way is unable to find first floor room for him. working with [facility] for further options. Goals of Care: Full code Team Pager(MD Coverage 27/01): #[phone] PCP: NAKIA Cifuentes [phone] Kya Enriquez MD 09/24/2017 * Gabe Marinelli [...] to autonomic instability related to hx of FORK OPERATOR insults described above?? IV access: none Tubes/Drains: none DVT PPX: Lovenox 40mg QHS Anticipated Disposition: Medically stable for discharge. No rehab acceptances as of yet. His current half-way is unable to find first floor room for him. CM working with [facility] for further options. Goals of Care: Full code Team Pager( Coverage 27/01): #[phone] PCP: NAKIA Cifuentes [phone] Kya Enriquez MD 09/23/2017 Spoke with ortho to clarify weight bearing status. Given the need for plating, patient will be NWB pending an x-ray ~5 weeks post op (Around 10/09) at which time ortho will re-evaluate. * Kya Enriquez MD - 09/22/2017 3:32 PM EDT [facility] Medicine Daily Progress Note Admit Date: 09/02/2017 [...] when asked if he feels well - Carisa removed by orthopedics today Review of Systems: [...] to autonomic instability related to hx of FORK OPERATOR insults described above?? IV access: none Tubes/Drains: none DVT PPX: Lovenox 40mg QHS Anticipated Disposition: Medically stable for discharge. No rehab acceptances as of yet. His current half-way is unable to find first floor room for him. CM working with [facility] for further options. Goals of Care: Full code Team Pager( Coverage 27/01): #[phone] PCP: NAKIA Cifuentes [phone] Kya Enriquez MD 09/22/2017 * Kya Enriquez MD - 09/21/2017 12:11 PM EDT [facility] Medicine Daily Progress Note Admit Date: 09/02/2017 [...] to autonomic instability related to hx of FORK OPERATOR insults described above?? IV access: none Tubes/Drains: none DVT PPX: Lovenox 40mg QHS Anticipated Disposition: Medically stable for discharge. No rehab acceptances as of yet. His current half-way is unable to find first floor room for him. CM working with [facility] for further options. Goals of Care: Full code Team Pager(MD Coverage 27/01): #[phone] PCP: NAKIA Cifuentes [phone] Kya Enriquez MD 09/21/2017 * Kya Enriquez [...] ECGs available Confirmed by MD Scottie, Sally ([id number]) on 09/05/2017 3:49:31 PM QTCCALC 429 IMAGING: [...] to autonomic instability related to hx of FORK OPERATOR insults described above?? IV access: none Tubes/Drains: none DVT PPX: Lovenox 40mg QHS Anticipated Disposition: Medically stable for discharge. No rehab acceptances as of yet. His current half-way is unable to find first floor room for him. LUCAS working with [facility] for further options. Goals of Care: Full code Team Pager( Coverage 27/01): #[phone] PCP: NAKIA Cifuentes [phone] Kya Enriquez MD 09/20/2017 * Minerva Boyce RN - 09/19/2017 4:53 PM EDT Office of Care Management(OCM)/Grease Maker(CM)/Discharge Planning Service: Medicine Pager # [phone] LUCAS Boyce,RN,BSN,MA,ACM pgr [phone] Housing Contacts for pt: ?? Noel Estrella [phone]: [facility] Dept of Aging and [place], Developmental Services Specialist ( Name provided by Office of the Public Guardian Alicia Joyce: [phone]) too late to reach Noel today. May be able to access Medicaid waiver funds, matched funding to assist. Also does the PASR for [facility]. Does is NOT under Choices for Care/Skilled Nursing Care Medicaid program - he is under Developmental Services instead. ?? Lc Martinez-: Director [facility][1] Human Services([facility]): single agency contracted by [facility] to provide services/housing for Miguel Angel ?? Subha Tejeda [phone] is the RN of [facility] who oversees the half-way Miguel Angel is in. She is notthere 27/01 but is similar to home health RN. Spoke w Lc and Subha together this afternoon: ?? They have not had success in past in getting SNF rehab for pts with his level of disabiities ?? They are currently providing caregivers from pt's half-way in order to provide patient with sense of comfort and stability from those he knows, to interpret his needs to the staff. It is appropriate for them to touch/talk w pt to assist in calming and if [facility] ok with them wheeling him about in w/c it is ok with them. ?? Subha had great success in getting clinical and ability info from staff initially but of late theresponses have been that the person doesn't know. ?? [facility] has 5 homes all are full and pt's room is on 2nd floor 18 step walk up and there are stairs to enter the home. ?? The home that Miguel Angel is in is one [facility] rents so they can't make changes [...] plan status And to contact Noel of [facility]. Clinical Leader working w staff to provide mobiilty etc status updates to Subha when she calls in. * Reba Linton MD - 09/19/2017 8:30 AM EDT [facility] Medicine Daily Progress Note Admit Date: 09/02/2017 [...] ECGs available Confirmed by MD Scottie, Sally ([id number]) on 09/05/2017 3:49:31 PM QTCCALC 429 IMAGING: [...] to autonomic instability related to hx of FORK OPERATOR insults described above?? IV access: none Tubes/Drains: none DVT PPX: Lovenox 40mg QHS Anticipated Disposition: Medically stable for discharge. No rehab acceptances as of yet. His current half-way is unable to find first floor room for him. CM working with [facility] for further options. Goals of Care: Full code Team Pager( Coverage 27/01): #[phone] PCP: NAKIA Cifuentes [phone] Delgado Jeffrey MD 09/19/2017 Staff Addendum: ?? I have seen the patient and reviewed 's history and I agree with the details as written. I have personally reviewed and interpreted vital signs, lab and imaging studies. The assessment and plan were formulated in discussion with me and I agree with them as documented. ?? PCP NAKIA Cifuenets Attestation IPI Certification I certify that I [...] 09/18/2017 5:30 PM EDT Office of Care Management(OCM)/Grease Maker(CM)/Discharge Planning Service: LUCAS Boyce RN,BSN,MA,[facility] pgr [phone] 09/17: Called Guardian and spoke with her about d/c planning and that facilities had declined her brother. She agrees he is getting bored, frustrated in hospital environment and would be bestserved to be in his own half-way getting home PT/OT. Clinical update given and she asks that teamcall her with clinical decisions and updates and can reach her at her work phone if is after 2P. Today- left message with Subha Razo who is the RN overseeing half-way. RNLUCAS Solitario Kelsey has spoken with her before encouraging [...] ECGs available Confirmed by MD Scottie, Sally ([id number]) on 09/05/2017 3:49:31 PM QTCCALC 429 IMAGING: [...] to autonomic instability related to hx of FORK OPERATOR insults described above?? IV access: none Tubes/Drains: none DVT PPX: Lovenox 40mg QHS Anticipated Disposition: Medically stable for discharge, pending placement Goals of Care: Full code Team Pager(MD Coverage 27/01): #[phone] PCP: NAKIA Cifuentes [phone] Delgado Jeffrey MD 09/18/2017 Staff Addendum: I have [...] minimumof two midnights or is on the [facility] inpatient only procedure list (status C) due to: Has met IPI and is now pending placement REBA LINTON MD * Reba Linton MD - 09/17/2017 4:41 PM EDT [facility] Medicine Daily Progress Note Admit Date: 09/02/2017 [...] ECGs available Confirmed by MD Scottie, Sally ([id number]) on 09/05/2017 3:49:31 PM QTCCALC 429 IMAGING: [...] to autonomic instability related to hx of FORK OPERATOR insults described above?? IV access: none Tubes/Drains: none DVT PPX: Lovenox 40mg QHS Anticipated Disposition: Medically stable for discharge, pending placement Goals of Care: Full code Team Pager(MD Coverage 27/01): #[phone] PCP: NAKIA Cifuentes [phone] REBA LINTON MD 09/17/2017 * Debbie Keller DT - 09/17/2017 3:02 PM EDT Nutrition Services - Follow-up Note Miguel Angel Pop Isabella : 1990 AGE: 27 y.o. Patient [...] Assessment: Patient seen for nutrition follow up. Landscape Laborer able to speak with visitor on pt's [...] right leg only DVT prophylaxis: lovenox Closure: [place] to be removed ~09/19 Dressings: may leave open to air now Future Appointments Date Time Provider Department Center 09/19/2017 2:15 PM [facility] DX ROOM 1 Xray [facility] 09/19/2017 3:10 PM Amy Lance MD [facility] Associated attestation - Amy Lance MD - 09/17/2017 12:29 PM EDT Patient seen and examined. Agree with resident note. Mandy Lance MD Department of Orthopaedics 09/17/17 * Agnieszka Mendiola PT - 09/16/2017 2:25 PM EDT Physical Therapy Contact Note Pt services continue to follow - pt not appropriate for participation in PT tx session upon arrivalthis afternoon secondary to low Hgb - receiving blood and pt agitated at this time per HEATHER Wells's report. Will continue to follow and will re-attempt tomorrow when appropriate. Please page this freelance copywriter if you have any questions, thank you. Agnieszka Mendiola, PT Pager #[phone] Physical Therapy Inpatient Rehabilitation * Ren Walters OTA - 09/16/2017 1:04 PM EDT Attempted to see pt this morning, pt working with other staff and notably agitated. Will attempt again at a more appropriate time. Ren MAYA Pager:[phone] * Reba Linton MD - 09/16/2017 8:34 AM EDT Hospital Medicine Daily Progress Note [...] ECGs available Confirmed by MD Scottie, Sally ([id number]) on 09/05/2017 3:49:31 PM QTCCALC 429 IMAGING: [...] to autonomic instability related to hx of FORK OPERATOR insults described above?? IV access: none Tubes/Drains: none DVT PPX: Lovenox 40mg QHS Anticipated Disposition: pending workup of fever Goals of Care: Full code Team Pager(MD Coverage 27/01): #[phone] PCP: NAKIA Cifuentes [phone] Delgado Jeffrey MD PGY-1, Internal Medicine 09/16/2017 Staff Addendum: ?? I have seen the patient and reviewed 's history and I agree with the details as written. I have personally reviewed and interpreted vital signs, lab and imaging studies. The assessment and plan were formulated in discussion with me and I agree with them as documented. ?? REBA LINTON MD * Desean De Oliveira W - 09/16/2017 6:00 AM EDT Orthopaedic Surgery Progress Note Surgery/Issue: ORIF left acetabulum Attending: Dr. Lance Date of surgery: 09/04/2017 Subjective/Events: Miguel Angel appears uncomfortable this morning. Moving all 4 extremities and yelling at time of exam. [place] over lower abdominal and left lower abdominal incisions intact. Awaiting potential rehab or specialty alf per care management notes. Hb is 6.8 [...] right leg only DVT prophylaxis: lovenox Closure: [place] to be removed 09/19 Dressings: may leave open to air now Future Appointments Date Time Provider Department Center 09/19/2017 2:15 PM [facility] DX ROOM 1 Xray [facility] 09/19/2017 3:10 PM Amy Lance MD [facility] Associated attestation - Amy Lance MD - 09/16/2017 6:12 AM EDT Agree with resident note. Mandy Lance MD Department of Orthopaedics 09/16/17 * Chavez Kelsey RN - 09/15/2017 10:03 AM EDT OFFICE OF CARE MANAGEMENT CM call to Subha - HEATHER at half-way. We discussed declines by facilities- awaiting [facility] response. We discussed if there are any other home that may be able to accommodate Miguel Angel physical needs at this time. We discussed supportive services such as VNA. Subha will discuss with Home's quality control supervisor in considering if miguel angel could [...] ECGs available Confirmed by MD Scottie, Sally ([id number]) on 09/05/2017 3:49:31 PM QTCCALC 429 VASCULAR: [...] He is now s/p operative repair on 3/1 with post operative course c/b issues with [...] to autonomic instability related to hx of FORK OPERATOR insults described above?? IV access: none Tubes/Drains: none DVT PPX: Lovenox 40mg QHS Anticipated Disposition: pending workup of fever Goals of Care: Full code Team Pager(MD Coverage 27/01): #[phone] PCP: NAKIA Cifuentes [phone] Delgado Jeffrey MD PGY-1, Internal Medicine 09/15/2017 Staff Addendum: I have seen the patient and reviewed 's history and I agree with the details as written. I have personally reviewed and interpreted vital signs, lab and imaging studies. The assessment and plan were formulated in discussion with me and I agree with them as documented. REBA LINTON MD * Lindsey Walsh DO - 09/14/2017 1:17 PM EDT Images from the original note were not included. ENDOCRINOLOGY FOLLOW UP INPATIENT NOTE [facility] Name: Miguel Angel Mason Date of Consultation: [...] History: Procedure Laterality Date ??? PRO OPEN COREMAKING SUPERVISOR FIX ACETABULAR FX Left 09/04/2017 @OPEN TREATMENT, ACETABULAR FX (WRVU 25.41) performed by Amy Lance MD at [facility] MAIN OR Allergies Allergen Reactions ??? Lopid [...] Lindsey Walsh, Endocrinology, Diabetes and Metabolism Fellow 09/14/2017 1:17 [...] Last Ca, Mg, Phos Recent Labs 09/11/17 03409/08/17 0334 CALCIUM 8.1* 7.8* PHOS -- 3.2 [...] to autonomic instability related to hx of FORK OPERATOR insults described above Diet Regular diet Discharge planning Anticipate patient will be medically stable for discharge to rehab within next 24-48 hours Lines/Access None Morse catheter None DVT Prophylaxis Enoxaparin Code status FULL Team Pager [phone] PCP NAKIA Cifuentes Attestation IPI Certification I certify that I am a D-H credentialed attending provider with admitting privileges and that the patient meets or has met medical necessity to require an inpatient IPI level of care meeting a minimumof two midnights or is on the [facility] inpatient only procedure list (status C) due [...] touching or repositioning that leg. (medicine pager [phone]) notified and additional 2 mg of po [...] Sodium has now stabilized. Will plan to [id number] serum and urine osms and continue Q6H [...] to autonomic instability related to hx of FORK OPERATOR insults described above Diet Regular diet Discharge planning Anticipate patient will be medically stable for discharge to rehab within next 24-48 hours Lines/Access None Morse catheter None DVT Prophylaxis Enoxaparin Code status FULL Team Pager [phone] PCP NAKIA Cifuentes Attestation IPI Certification I certify that I am a D-H credentialed attending provider with admitting privileges and that the patient meets or has met medical necessity to require an inpatient IPI level of care meeting a minimumof two midnights or is on the [facility] inpatient only procedure list (status C) due [...] to autonomic instability related to hx of FORK OPERATOR insults described above. ? IV access: piv Tubes/Drains: Morse DVT PPX: lovenox Anticipated Disposition: Awaiting rehab once Na stable ?? Goals of Care: Full Code Team Pager( Coverage 27/01): #[phone] PCP: NAKIA Cifuentes [phone] REN SANCHEZ III, MD * Christopher Hess MD - 09/12/2017 8:17 AM EST Images from the original note were not included. ENDOCRINOLOGY FOLLOW UP INPATIENT NOTE [facility] Name: Miguel Angel Mason Date of Consultation: [...] History: Procedure Laterality Date ??? PRO OPEN COREMAKING SUPERVISOR FIX ACETABULAR FX Left 09/04/2017 @OPEN TREATMENT, ACETABULAR FX (WRVU 25.41) performed by Amy Lance MD at [facility] MAIN OR Allergies Allergen Reactions ??? Lopid [...] seated in chair Responding to some questions, clinical care coordinator at bedside helps interaction CVS/Lungs- regular/clear No [...] and agree with this plan. Today Mr Mason was more animated than I had seen [...] provided it does not exceed these bounds. O * Berlin Anderson MD - 09/12/2017 7:06 AM EST Orthopaedic [...] lovenox Closure: Carisa to be removed 09/19 Dressing: Mepilex to protect incisions from patient, replace as needed. Future Appointments Date Time Provider Department Center 09/19/2017 2:15 PM [facility] DX ROOM 1 Xray [facility] [...] (referring that patient pulled out morse catheter). O * Masood High RN - 09/11/2017 8:16 PM EST Patient placed in bilateral soft limb wrist and mitt restraints for patient safety regarding morse catheter, per MD orders. O * Masood High RN - 09/11/2017 8:06 [...] CARE MANAGEMENT Met with pt and his clinical care coordinator this am., Per review with medical team, pt NOT medically ready today due to electrolyte imbalance. Will ask RS to update facilities in referral, potentially medically cleared within 24 hrs * Christopher Hess MD - 09/11/2017 8:35 AM EST Images from the original note were not included. ENDOCRINOLOGY FOLLOW UP INPATIENT NOTE [facility] Name: Miguel Angel Mason Date of Consultation: [...] History: Procedure Laterality Date ??? PRO OPEN COREMAKING SUPERVISOR FIX ACETABULAR FX Left 09/04/2017 @OPEN TREATMENT, ACETABULAR FX (WRVU 25.41) performed by Amy Lance MD at [facility] MAIN OR Allergies Allergen Reactions ??? 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 ? IV access: piv Tubes/Drains: Morse DVT PPX: lovenox Anticipated Disposition: Awaiting reahb ?? Goals of Care: Full Code Team Pager( Coverage 27/01): #[phone] PCP: NAKIA Cifuentes [phone] Delgado Jeffrey MD Attending Attestation Please see [...] of two midnights or is on the [facility] inpatient only procedure list (status C) due [...] Assessment: Patient seen regarding hospital LOS. Visitor, Adriane, at bedside at time of arrival and pt asleep. Landscape Laborer able to speak with visitor on pt's [...] informed of supplemental shakes available if needed. Landscape Laborer showed Adriane where unit kitchen is for [...] to autonomic instability related to hx of FORK OPERATOR insults described above. ? IV access: piv Tubes/Drains: Morse DVT PPX: lovenox Anticipated Disposition: Awaiting reahb ?? Goals of Care: Full Code Team Pager( Coverage 27/01): #[phone] PCP: NAKIA Cifuentes [phone] REN SANCHEZ III, MD * Shelley Tong RN - 09/10/2017 11:02 AM EST Office of Care Management Based on discussions with the multi-disciplinary healthcare team, his sibling, Bettina, would benefit from skilled level of care at discharge. ?? I have met with the patient/circulation representative to discuss discharge planning needs. I have provided the [facility], Office of Care Management letter from the Oral And Maxillofacial Surgery Resident pertaining to rehab referrals. I have also provided a letter describing our affiliations within the [facility] and educated them about their right to choose where referrals are placed. ?? I reviewed the different levels of rehab including SNF, swing, acute and LTAC with the patient/circulation representative. ?? The patient/circulation representative has been provided a list of facilities within their preferred geographic area. ?? I have requested that the patient/circulation representative provide at least three choices for referral. ?? The patient/circulation representative have requested referrals to: ?? 1. [facility] ?? 2. [facility] in [place], [place] 3. [facility] 4. [facility] ? Expected date of discharge: 09/10/2017 Note routed to Assistant Center Director who will communicate referrals to facilities and provide any required information. Shelley Tong RN Case Manager Pager #[phone] * Comi, Christopher Jerez MD - 09/10/2017 7:10 AM EST Images from the original note were not included. ENDOCRINOLOGY CONSULT INPATIENT NOTE [facility] Name: Miguel Angel Mason HPI: Miguel Angel [...] No events overnight per nursing staff and half-way staff at bedside. Patient responding and says he is awesome. Very pleasant. Drinking to thirst. Hungry and thirsty all the time per care givers from half-way, this is not new. 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 ?? Plan: Panhypopituitarism: --- Continue DDAVP BID [...] this TID regimenas requested by his primary child caregiver private home and sister, he be placed on 3L [...] also be on Vitamin D replacement using 6223-7629 IU daily. Thank you for allowing us [...] decision making and agree withthis plan. * eRn Sanchez III, MD - 09/09/2017 7:43 AM EST [facility] Medicine Attending Daily Progress Note Admit Date: [...] to autonomic instability related to hx of FORK OPERATOR insults described above. ? IV access: piv Tubes/Drains: Morse DVT PPX: lovenox Anticipated Disposition: TBD pending clinical course ?? Goals of Care: Full Code Team Pager(MD Coverage 27/01): #[phone] PCP: NAKIA Cifuentes [phone] Delgado Jeffrey MD PGY-1, Internal Medicine 09/09/2017 [...] of two midnights or is on the CMS inpatient only procedure list (status C) due to: close monitoring of Na given DI. REN SANCHEZ III, MD * Christopher Hess MD - 09/09/2017 7:34 AM EST Images from the original note were not included. ENDOCRINOLOGY FOLLOW UP INPATIENT NOTE [facility] Name: Miguel Angel Mason Date of Consultation: [...] No events overnight per nursing staff and half-way staff at bedside. Patients sodium remains in appropriate range. Urine output higher than previous days. Thirst levels is normal according to half-way staff member that knows the patient well. 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 Given that his half-way has used a fluid restriction in his [...] Current Decision-Making Capacity: sister Bettina Mason (Sibling) [phone] [facility] [id number] (H)- Advance Care Planning: not on file Current Coping/Education/Information Needs: Coping well per care givers Current Functional Ability: has not had PT yet per care givers Functional Status Prior to Admission: lives in half-way setting on 2nd level able to ascend stairs, showers self with stand by assist r/t blindness per care givers, non communicative however the care givers seem able to understand at least some of pt's attempts of communication. Home Environment: 3 level half-way- [facility] [place] Social & Family Supports/Community Resources: Extended Emergency Contact Information Primary Emergency Contact: Bettina Mason Address: [address] [place], [place] [id number] [place] [address] Relation: Sibling Behavioral Health History: NA Substance Use/Abuse: NA Other Pertinent/Service Specific Information: unlikely be able to return to half-way immediately Health/Prescription Coverage: Primary Insurance: Payor: [place] / Plan: [place] / Product Type: *No Product type* / Secondary Insurance: Prescription Coverage: see above Preferred Pharmacy: No Pharmacies Listed Other: None Primary Care Provider: NAKIA Cifuentes [phone] Patient/Caregiver Goals of Treatment: Safe discharge Potential Needs for Transition of Care: Rehab/SNF: TBD Home Health: no DME: no Dialysis: No Community Resources: No Transportation: ambulance Other: None Anticipated Barriers to Discharge/Special Considerations: None Plan: Per discussion with care givers pt may be near facilities such as [facility] and [facility] in [place]. CM will need to connect with for choices A member of the Care Management team will continue to monitor progress, follow for continuity of care and assist with transition of care planning. CHAVEZ KELSEY RN Pager: [phone] * Christopher Hess MD - 09/08/2017 11:49 AM EST Images from the original note were not included. 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. During this hospitalization his sodium down trended [...] the possibility of hypophosphatemic osteomalacia. For this [id number] hour urine studies of calcium, creatinine and [...] III, MD - 09/08/2017 8:25 AM EST [facility] Medicine Attending Daily Progress Note Admit Date: [...] to autonomic instability related to hx of FORK OPERATOR insults described above. ? IV access: piv Tubes/Drains: Morse DVT PPX: lovenox Anticipated Disposition: TBD pending clinical course ?? Goals of Care: Full Code Team Pager(MD Coverage 27/01): #[phone] PCP: NAKIA Cifuentes [phone] Delgado Jeffrey MD PGY-1, Internal Medicine 09/08/2017 [...] of two midnights or is on the [facility] inpatient only procedure list (status C) due to: monitoring of fluid status given an inability to regulate fluid balance and the need for administration or restriction of fluids. REN SANCHEZ III, MD * Desean De Oliveira - 09/08/2017 6:11 AM EST Orthopaedic Surgery [...] left ischial and acetabular fracture with multiple tpgpn-sde-qcedl constructs. Tubing that could represent a surgical [...] right leg only DVT prophylaxis: lovenox Closure: [place] (to be removed at Orthopaedic follow-up appointment) Dressing: Mepilex x 7 days Antibiotics: Ancef x24 hours edna-op, complete Future Appointments Date Time Provider Department Center 09/19/2017 2:15 PM [facility] DX ROOM 1 [facility]ray [facility] 09/19/2017 3:10 PM Amy Lance MD [facility] Associated attestation - Amy Lance MD - 09/16/2017 6:11 AM EDT Agree with resident note. Mandy Lance MD Department of Orthopaedics 09/16/17 * Rosie Marinelli RN - 09/07/2017 6:01 PM EST Patient stable this shift. Caregiver at bedside. Intermittently uncomfortable; PO medications utilized and x 1 IV dilaudid given for persistent moaning. Patient's mepilex dressing removed by patient; replaced by nurse. OT hand inspector materials and processes given for distraction. 24 hour urine commence at 0700 although needs to be [id number] r/t mistaken interpretation of a discontinued order from 09/06 not 09/07. Replaced calcium per orders. HEATHER Mascorro managing patient's care at half-way is instructed to call Bettina (guardian and [...] ECGs available Confirmed by MD Scottie, Sally ([id number]) on 09/05/2017 3:49:31 PM QTCCALC 429 VASCULAR: [...] to autonomic instability related to hx of FORK OPERATOR insults described above. ?? IV access: piv Tubes/Drains: morse DVT PPX: lovenox Anticipated Disposition: TBD pending clinical course Goals of Care: Full Code Team Pager(MD Coverage 27/01): #[phone] PCP: NAKIA Cifuentes [phone] Attestation: IPI Certification I certify that I am a D-H credentialed attending provider with admitting privileges and that the patient meets or has met medical necessity to require an inpatient IPI level of care meeting a minimumof two midnights or is on the [facility] inpatient only procedure list (status C) due to: Acetabular fracture in patient with panhypopituitarism requiring operative repair and post-operative mgmt as above. REN SANCHEZ III, MD 09/07/2017 * Guerrero Bah MD - 09/07/2017 2:15 PM EST Images from the original note were not included. 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 On discussion with his primary child caregiver private home and his sister, however, they have made [...] and normal PTH level. GENEVIEVE PAGE MD Employee Representativeintrusion analyst Section of Endocrinology [facility] * Desean De Oliveira W [...] left ischial and acetabular fracture with multiple slqxa-xtp-jqcdk constructs. Tubing that could represent a surgical [...] Time Provider Department Center 09/19/2017 2:15 PM [facility] DX ROOM 1 Xray [facility] [...] with serous drainage; reinforced with super sponge; MD notified. All other dressings c/d/i. Will continue [...] Nightly ??? acetaminophen 1,000 mg Oral Q6H CIOR Continuous infusions: ??? sodium chloride 0.45% PRN: [...] ECGs available Confirmed by MD Scottie, Sally ([id number]) on 09/05/2017 3:49:31 PM QTCCALC 429 VASCULAR: [...] to autonomic instability related to hx of FORK OPERATOR insults described above. ?? IV access: piv Tubes/Drains: morse DVT PPX: lovenox Anticipated Disposition: TBD pending clinical course Goals of Care: Full Code Team Pager( Coverage 27/01): #[phone] PCP: NAKIA Cifuentes [phone] Attestation: IPI Certification I certify that I am a D-H credentialed attending provider with admitting privileges and that the patient meets or has met medical necessity to require an inpatient IPI level of care meeting a minimumof two midnights or is on the [facility] inpatient only procedure list (status C) due to: Acetabular fracture in patient with panhypopituitarism requiring operative repair and post-operative mgmt as above. REN SANCHEZ III, MD 09/06/2017 * Guerrero Bah MD - 09/06/2017 9:09 AM EST Images from the original note were not included. 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 Patient was given mL 0.45% at 12:22 + 1 L sodium chloride 0.45% at 1640. Patient is on DDAVP 0.05 mg BID, hydrocortisone 50 mg every 12 hours, levothyroxine 150 mg daily. Urine output about 25 mL/hr. Patient was seen at the bedside he is feeling well and no complains. Denies any nausea, vomiting orabdominal pain. No fevers, chills or night sweats. He is with clinical care coordinator and eating at the time. 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 GENEVIEVE PAGE MD Employee Representativeintrusion analyst Section of Endocrinology [facility] * Desean De Oliveira Ella - 09/06/2017 6:23 AM EST Orthopaedic Surgery [...] left ischial and acetabular fracture with multiple minze-izv-sbwvc constructs. Tubing that could represent a surgical [...] Time Provider Department Center 09/19/2017 2:15 PM [facility] DX ROOM 1 X[facility] [...] ECGs available Confirmed by MD Scottie, Sally ([id number]) on 09/05/2017 3:49:31 PM QTCCALC 429 VASCULAR: [...] instability related to the aforementioned hx of FORK OPERATOR insults. ?? Plan # Acetabular fracture -underwent [...] to autonomic instability related to hx of FORK OPERATOR insults described above. ?? IV access: piv Tubes/Drains: morse DVT PPX: lovenox Anticipated Disposition: TBD pending clinical course Goals of Care: Full Code Team Pager(MD Coverage 27/01): #[phone] PCP: NAKIA Cifuentes [phone] Attestation: IPI Certification I certify that I am a D-H credentialed attending provider with admitting privileges and that the patient meets or has met medical necessity to require an inpatient IPI level of care meeting a minimumof two midnights or is on the [facility] inpatient only procedure list (status C) due [...] Mason??is a 27 y.o.male??with PMH significant for half-way resident, 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 She was telling me sister wants to speak with us as she feels he should be on DDAVP three times a day instead of twice a day. 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 I spoke with his primary child caregiver private home, Dr. Wilder Zaidi of [facility] Department of Endocrinology, for more details on [...] could be related to renal phosphate wasting ([id number]) He is not acidemic nor hypokalemic, so [...] citrate 950mg po TID GENEVIEVE PAGE MD Employee Representativeintrusion analyst Section of Endocrinology [facility] * Celine Power MD - 09/05/2017 7:49 AM EST Left pelvic drain removed. 40 intact holes visible in tubing. Drain sponge and overlying gauze for dressing. Patient tolerated drain removal well. Celine Power MD [id number] * Desean De Oliveira - 09/05/2017 6:16 [...] left ischial and acetabular fracture with multiple pmfvt-qvl-tsmxm constructs. Tubing that could represent a surgical [...] prophylaxis: Per hospital medicine (recommend lovenox) Closure: [place] (to be removed at Orthopaedic follow-up appointment) [...] left ischial and acetabular fracture with multiple xwpae-lqo-igfdf constructs. 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 Apparently at his half-way, he was being kept on a 2L [...] his testosterone replacement dose. GENEVIEVE PAGE MD Employee Representativeintrusion analyst Section of Endocrinology [facility] * Nyasia Cochran RN - [...] today Desean De Oliveira MD 09/04/2017 Pager: [phone] * David Phillips MD - 09/04/2017 6:00 [...] L Elbow flexion 5/5 R, 5/5 L [place] LE: 5/5 R, UT L Hip flexion [...] Not Detected Not Detected Resp PCR Source LOOM OPERATOR Swab Urinalysis with reflex Culture Result Value Ref Range Glucose UA Negative Negative mg/dL Protein UA Negative Negative mg/dL Bilirubin UA Negative Negative mg/dL Urobilinogen UA >=4.0 (A) Normal mg/dL pH UA 7.0 5.0 - 8.0 Blood UA Negative Negative mg/dL Ketones UA Negative Negative mg/dL Nitrite UA Negative Negative Leukocytes UA Negative Negative mcL Appearance UA Clear Clear Spec [place] UA 1.020 1.002 - 1.030 Color UA [...] ? Moisés Orr MD PGY-3 Neurology Pager [phone] ?? Neurology Attending ?? I saw and [...] ? David Phillips [place] [address] Pager #[phone] Email: [email or web address] [place] * Fran Gilliam MD - 09/03/2017 [...] Last Ca, Mg, Phos Recent Labs 09/03/17 06 CALCIUM 8.8 Last 3 Coags Recent Labs 09/03/17 005 PT 13.6 INR 1.1 PTT 26 Last 3 TFT Recent Labs 09/03/17 06 TSH 0.01* FSBG Trend No results for [...] Care: Full Code Team Pager(MD Coverage 27/01): #[phone] PCP: NAKIA Cifuentes [phone] Attestation: IPI Certification I certify that I am a D-H credentialed attending provider with admitting privileges and that the patient meets or has met medical necessity to require an inpatient IPI level of care meeting a minimumof two midnights or is on the [facility] inpatient only procedure list (status C) due [...] HPI This is a 27 y.o. male half-way resident with a history of panhypopituitarism, DI, [...] over the phone, so she had his local flatbed driver take him to the hospital. At [facility], when asked about pain he would point to his left knee. Ultimately, CT was performed which showed acute leftacetabular fracture and osteopenia. He received several doses of morphine, dilaudid, and ativan forpain and sedation prior to transfer. He has not had a seizure for about 4 years. No recent med changes according to Bettina. Labs at [facility] remarkable for Na 132. In the ER [...] None Social History Narrative [place] [facility]. Family Reviewed and non-contributory. [...] holding for OR ?? PCP: NAKIA Cifuentes [phone] Christopher Dalal Pager #[phone] Hospital Medicine IPI Certification I certify that I am a D-H credentialed attending provider with admitting privileges and that the patient meets or has met medical necessity to require an inpatient IPI level of care meeting a minimumof two midnights or is on the [facility] inpatient only procedure list (status C) due to: acetabular fracture requiring operative repair. documented in this encounter ED Notes * Darren Joyce RN - 09/03/2017 3:23 PM EST Pt resting on bed in the room with bone char operator at the bedside. Pt to have CT [...] be in pain. Dr Dalal paged. Crista Malave NRP - 09/03/2017 3:03 AM EST Pt now resting quietly in bed. Sister remains at his bedside. O * Crista Baptiste NRP - 09/02/2017 11:46 [...] and incontinence who presents as transfer from [facility]; he is not accompanied by family; history obtained from records at [facility]. Pertheir records, he had a possible tonic clonic seizure on bus, and then was unresponsive and gurgling. He was taken to the ED and noted to have left hip and knee pain. Imaging there showed possible left acetabular fx so he was transferred here for further management. At [facility] ED, he got ativan 0.5 and morphine [...] y.o. who I accepted in transfer from [place] The patient will be evaluated in the [...] Hands on/eyes on Surveillance [continuous indirect monitoring]: Jeet 1:1 sitter Patient-specific fall prevention interventions for [...] Handling Outcome: Ongoing (Interventions Implemented as Appropriate) 03/09/18 0903/09/18 1200 Restraint Interventions Safety Promotion/Fall Prevention -- [...] Control Outcome: Ongoing (Interventions Implemented as Appropriate) 03/09/18 0900 03/09/18 1200 Coping Strategies Supportive Measures self-care encouraged;active [...] Ongoing (Interventions Implemented as Appropriate) 03/09/18 1731 Skin Integrity Impairment, Risk/Actual (Adult) Skin Integrity/Wound [...] OTHER [place] Fall Risk High -- -- 08/31/18 2200 Restraint Interventions Safety Promotion/Fall Prevention fall [...] Outcome: Ongoing (Interventions Implemented as Appropriate) 03/06/1830 03/06/182199 Coping Strategies Supportive Measures active listening utilized;self-care encouraged;verbalization of feelings encouraged -- Safety Interventions Isolation Precautions -- standard precautions maintained Infection Prevention -- rest/sleep promoted Goal: Discharge Needs Assessment Outcome: Ongoing (Interventions Implemented as Appropriate) 01/05/18221502/05/18 0534 03/04/18 1858 Discharge Needs Assessment Concerns [...] Ongoing (Interventions Implemented as Appropriate) 03/07/18 0256 Interdisciplinary Rounds/Family Conf Participants nursing;patient * Plan of Care - Ellen Moncada RN - 03/06/2018 7:18 PM EDT Problem: Patient Care Overview Goal: Plan of Care Review Outcome: Ongoing (Interventions Implemented as Appropriate) 03/06/18 0344 03/06/18 0930 Coping/Psychosocial Plan Of Care Reviewed With [...] Ongoing (Interventions Implemented as Appropriate) 03/06/18 0344 Coping/Psychosocial Plan Of Care Reviewed With patient [...] Ongoing (Interventions Implemented as Appropriate) 03/05/18204403/06/18 0040 Coping Strategies Supportive Measures active listening utilized;self-care [...] Currently Used at Home none -- -- 03/06/18 034 Discharge Needs Assessment Concerns To Be Addressed [...] Ongoing (Interventions Implemented as Appropriate) 03/06/18 034 Interdisciplinary Rounds/Family Conf Participants nursing;patient * Plan of Care - Mady Recio RN - 03/05/2018 3:43 PM EDT Problem: Patient Care Overview Goal: Plan of Care Review Outcome: Ongoing (Interventions Implemented as Appropriate) 03/04/18 1859 03/05/18 0940 Coping/Psychosocial Plan Of Care Reviewed With -- [...] ordered. Inform MD of any changes. Await rehab/buttermaker helper care placement. INDIVIDUALIZED FALL PREVENTION INTERVENTIONS: Patient-specific [...] Mutuality Outcome: Ongoing (Interventions Implemented as Appropriate) 01/25/18242 Individualization Patient Specific Preferences Enjoys icecream, applesauce [...] care. Outcome: Ongoing (Interventions Implemented as Appropriate) 08/27/18 0207 Skin Integrity Impairment, Risk/Actual (Adult) Skin Integrity/Wound [...] and aggressive. VSS on room air, except [id number] throughout morning. 3 samples drawn but hemolyzed [...] Ongoing (Interventions Implemented as Appropriate) 02/23/185 02/23/18 173 Coping/Psychosocial Plan Of Care Reviewed With -- [...] Outcome: Ongoing (Interventions Implemented as Appropriate) 02/23/18 0908 02/23/18 1700 Coping Strategies Supportive Measures active listening [...] Review Outcome: Ongoing (Interventions Implemented as Appropriate) 02/17/18183202/20/18 0953 Coping/Psychosocial Plan Of Care Reviewed With [...] Review Outcome: Ongoing (Interventions Implemented as Appropriate) 02/17/18183202/19/180 Coping/Psychosocial Plan Of Care Reviewed With -- [...] Ongoing (Interventions Implemented as Appropriate) 02/17/18 1833 Coping/Psychosocial Plan Of Care Reviewed With patient [...] Control Outcome: Ongoing (Interventions Implemented as Appropriate) 02/17/18 1833 Coping Strategies Supportive Measures positive reinforcement provided;problem solving facilitated Safety Interventions Isolation Precautions protective environment maintained Problem: Thought Process Alteration (Adult) Goal: Identify Related Risk Factors and Signs and Symptoms Related risk factors and signs and symptoms are identified upon initiation of Human Response Clinical Practice Guideline (CPG) Outcome: Ongoing (Interventions Implemented as Appropriate) 02/17/18 1833 Thought Process Alteration Related Risk Factors (Thought [...] Ongoing (Interventions Implemented as Appropriate) 02/16/18 1719 02/16/18 2130 Coping/Psychosocial Plan Of Care Reviewed With [...] Outcome: Ongoing (Interventions Implemented as Appropriate) 02/16/18 17102/16/182129 Coping Strategies Supportive Measures positive reinforcement provided [...] BP Temp Temp src Pulse Resp SpO2 02/16/18617 122/88 37 ??C (98.6 ??F) Oral 76 15 98 % 02/15/182052 118/83 36.8 ??C (98.2 ??F) Oral 87 19 97 % Jodee Azevedo, RN Goal: Infection Control Outcome: Ongoing (Interventions Implemented as Appropriate) 02/16/181718 Coping Strategies Supportive Measures positive reinforcement provided Safety Interventions Isolation Precautions standard precautions maintained Infection Prevention single patient room provided Problem: Skin Integrity Impairment, Risk/Actual (Adult) Goal: Skin Integrity/Wound Healing Patient will demonstrate the desired outcomes by discharge/transition of care. Outcome: Ongoing (Interventions Implemented as Appropriate) 02/16/181718 Skin Integrity Impairment, Risk/Actual (Adult) Skin Integrity/Wound [...] Review Outcome: Ongoing (Interventions Implemented as Appropriate) 02/16/18620 Coping/Psychosocial Plan Of Care Reviewed With patient [...] Control Outcome: Ongoing (Interventions Implemented as Appropriate) 02/14/18214602/15/18 110 Coping Strategies Supportive Measures active listening utilized;positive [...] Outpatient/Agency/Support Group Needs assisted living facility (specify);half-way (specify) -- -- Anticipated Changes Related to [...] (Interventions Implemented as Appropriate) 02/11/18 0600 02/11/18 0845 02/11/18 1600 Restraint Interventions Safety Promotion/Fall Prevention -- [...] Outcome: Ongoing (Interventions Implemented as Appropriate) 02/11/18 1717 Discharge Needs Assessment Discharge Disposition still a [...] Outcome: Ongoing (Interventions Implemented as Appropriate) 02/11/18 1717 Fluid Volume Excess (Adult,Obstetrics,Pediatric) Stable Weight making [...] patient room provided Goal: Discharge Needs Assessment 01/05/18 2216 01/30/18 1712 02/05/18 0534 Discharge [...] Outpatient/Agency/Support Group Needs assisted living facility (specify);half-way (specify) -- -- Anticipated Changes Related to [...] desired outcomes by discharge/transition of care. 02/05/18 0564 Skin Integrity Impairment, Risk/Actual (Adult) Skin Integrity/Wound [...] until medically ready for discharge back to half-way.? INDIVIDUALIZED FALL PREVENTION INTERVENTIONS: ?? Patient-specific fall [...] -- OUTCOME EVALUATION NOTE: OUTCOME SUMMARY: Mr. Maosn slept for most of the day, he [...] Outpatient/Agency/Support Group Needs assisted living facility (specify);half-way (specify) -- -- Anticipated Changes Related to [...] Ongoing (Interventions Implemented as Appropriate) 02/03/18 1200 02/03/182029 Coping Strategies Supportive Measures active listening utilized;verbalization of feelings encouraged -- Safety Interventions Isolation Precautions -- standard precautions maintained Infection Prevention environmental surveillance performed;rest/sleep promoted;single patient room provided -- Goal: Discharge Needs Assessment Outcome: Ongoing (Interventions Implemented as Appropriate) 01/05/186 01/30/18 1712 Discharge Needs Assessment Concerns To [...] Outpatient/Agency/Support Group Needs assisted living facility (specify);half-way (specify) -- Anticipated Changes Related to Illness [...] Outpatient/Agency/Support Group Needs assisted living facility (specify);half-way (specify) -- Anticipated Changes Related to Illness [...] Outpatient/Agency/Support Group Needs assisted living facility (specify);half-way (specify) -- Anticipated Changes Related to Illness [...] given. Agitated and restless at beginning of shift commander, but able to calm down and rest for a few hours before morning. 1:1 observation, sitter at bedside continued. Medications administered per SEP. Pt cooperative with RN, using short simple [...] Outpatient/Agency/Support Group Needs assisted living facility (specify);half-way (specify) -- Anticipated Changes Related to Illness [...] care. Outcome: Ongoing (Interventions Implemented as Appropriate) 01/30/181711 Skin Integrity Impairment, Risk/Actual (Adult) Skin Integrity/Wound [...] SpO2 97% ??? BMI 31.29 kg/m2 Jodee Azevedo RN Goal: Fall Prevention-Safe Patient Handling Outcome: Ongoing (Interventions Implemented as Appropriate) 01/31/181746 Restraint Interventions Safety Promotion/Fall Prevention activity supervised;other (see comments) (1:1 sitter) Activity Activity Type activity encouraged Activity Assistance Provided assistance, 2 people;assistance, 1 person Daily Care Interventions Self-Care Promotion meal setup provided Goal: Infection Control Outcome: Ongoing (Interventions Implemented as Appropriate) 01/31/181746 Coping Strategies Supportive Measures positive reinforcement provided Safety Interventions Isolation Precautions standard precautions maintained Infection Prevention single patient room provided Problem: Fracture Orthopaedic (Adult) Intervention: Promote Functional Ability/Mobility 01/31/18 173 Activity Activity Type activity adjusted per tolerance Intervention: Promote Effective Elimination 01/31/181746 Manage Acute Burn Pain Bowel Intervention adequate [...] Review Outcome: Ongoing (Interventions Implemented as Appropriate) 01/21/189 01/30/182051 Coping/Psychosocial Plan Of Care Reviewed With [...] No acute changes overnight. Pt medicated per MAR. Will continue to monitor. PLAN MOVING FORWARD: [...] Outpatient/Agency/Support Group Needs assisted living facility (specify);half-way (specify) -- Anticipated Changes Related to Illness [...] Interventions Self-Care Promotion independence encouraged -- -- Awtood Fall Risk History of Falling 25 -- -- Secondary Diagnosis 15 -- -- Ambulatory Aids 15 -- -- Intravenous Therapy/Heparin/Saline Lock 0 -- -- Gait/Transferring 10 -- -- Mental Status 15 -- -- Score 80 -- -- OTHER [place] Fall Risk High -- -- Goal: Infection Control Outcome: Ongoing (Interventions Implemented as Appropriate) 01/30/1881401/30/18 1304 Coping Strategies Supportive Measures active listening utilized;self-care encouraged;self- reflection promoted;positive reinforcement provided -- Safety Interventions Isolation Precautions -- standard precautions maintained Infection Prevention -- rest/sleep promoted;single patient room provided Goal: Discharge Needs Assessment 01/30/181711 Discharge Needs Assessment Discharge Disposition still a patient Goal: Interdisciplinary Rounds/Family Conf Outcome: Ongoing (Interventions Implemented as Appropriate) 01/30/18 171 Interdisciplinary Rounds/Family Conf Participants patient;nursing Problem: Skin [...] Ongoing (Interventions Implemented as Appropriate) 01/30/18 171 Thought Process Alteration (Adult) Improved Thought Process [...] Outcome: Ongoing (Interventions Implemented as Appropriate) 01/29/18 1641 Discharge Needs Assessment Discharge Disposition still a patient Goal: Interdisciplinary Rounds/Family Conf Outcome: Ongoing (Interventions Implemented as Appropriate) 01/29/18 1641 Interdisciplinary Rounds/Family Conf Participants patient;nursing Problem: Thought Process Alteration (Adult) Goal: Improved Thought Process Patient will demonstrate the desired outcomes by discharge/transition of care. Outcome: Ongoing (Interventions Implemented as Appropriate) 01/29/18 1641 Thought Process Alteration (Adult) Improved Thought Process making progress toward outcome * Plan of Care - Jolene Domínguez RN - 01/29/2018 6:28 AM EDT Problem: Patient Care Overview Goal: Plan of Care Review Outcome: Ongoing (Interventions Implemented as Appropriate) 01/21/18 0329 01/28/18 2109 Coping/Psychosocial Plan Of Care Reviewed With -- [...] Care Overview Goal: Plan of Care Review 01/21/18 0329 01/27/18 0817 Coping/Psychosocial Plan Of [...] Ongoing (Interventions Implemented as Appropriate) 01/21/18 0329 01/22/18 1122 Coping/Psychosocial Plan Of Care Reviewed With -- patient Plan of Care Review Progress no change -- OUTCOME EVALUATION NOTE: OUTCOME SUMMARY: Assessment done and meds given. Sodium 140. RN and PHARMACY DIRECTOR assisted with ambulating patient. He walked 40ft [...] Appropriate) 01/14/18 1844 Interdisciplinary Rounds/Family Conf Participants physician;nursing;casework supervisor OUTCOME EVALUATION NOTE: OUTCOME SUMMARY: AxO to [...] Appropriate) 01/14/18 1844 Interdisciplinary Rounds/Family Conf Participants physician;nursing;casework supervisor OUTCOME EVALUATION NOTE: OUTCOME SUMMARY: AxO to [...] Appropriate) 01/14/18 1844 Interdisciplinary Rounds/Family Conf Participants physician;nursing;casework supervisor OUTCOME EVALUATION NOTE: OUTCOME SUMMARY: AxO to [...] [place] Fall Risk -- High -- 01/18/18 0444 Restraint Interventions Safety Promotion/Fall Prevention activity supervised;fall [...] Control Outcome: Ongoing (Interventions Implemented as Appropriate) 01/17/18 2043 01/18/18 0444 Coping Strategies Supportive Measures active listening utilized;verbalization [...] Slept on and off overnight. This morning [id number], pt threw bed guillen across the room [...] Ongoing (Interventions Implemented as Appropriate) 01/15/18 1251 01/15/182019 Coping/Psychosocial Plan Of Care Reviewed With -- [...] at the bedside. Pt listened to Chaz Flynn ontape for most of the shift. VSS. Will [...] Ongoing (Interventions Implemented as Appropriate) 01/07/18 1718 01/08/18 0830 Coping/Psychosocial Plan Of Care Reviewed With [...] Ongoing (Interventions Implemented as Appropriate) 01/07/18 1718 01/07/18 2022 Coping/Psychosocial Plan Of Care Reviewed With -- [...] Outcome: Ongoing (Interventions Implemented as Appropriate) 01/07/18 5068 Coping/Psychosocial Plan Of Care Reviewed With patient [...] Handling Outcome: Ongoing (Interventions Implemented as Appropriate) 01/07/18 0937 01/07/18 1000 01/07/18 1600 Restraint Interventions Safety [...] Control Outcome: Ongoing (Interventions Implemented as Appropriate) 01/07/18 0937 01/07/18 1600 Coping Strategies Supportive Measures active [...] Outpatient/Agency/Support Group Needs assisted living facility (specify);half-way (specify) Anticipated Changes Related to Illness none [...] as Appropriate) 01/05/182214 Interdisciplinary Rounds/Family Conf Participants casework supervisor;dietitian/nutrition services;nursing;physician;patient;family;social work/services OUTCOME EVALUATION NOTE: OUTCOME SUMMARY: [...] care. Outcome: Ongoing (Interventions Implemented as Appropriate) 07/02/18 2215 Fluid Volume Excess (Adult,Obstetrics,Pediatric) Balanced Intake/Output making [...] Review Outcome: Ongoing (Interventions Implemented as Appropriate) 01/05/182217 Coping/Psychosocial Plan Of Care Reviewed With patient;caregiver;friend [...] motion and massage with lotion performed by [facility]. We have been trying to increase length of ambulation however, due to behavior patient has only been safe to stand-pivot from the bed to wheelchair/commode. Patient did sit out of bed in the wheelchair, wheeled himself around the unit multiple times, went outside with the [facility], and nursing attempted scheduled toileting. Patient did [...] his PRN Seroquel, nursing transferred patient back [facility] bed, and we were able to [...] (Interventions Implemented as Appropriate) 12/31/17 0359 01/03/18 2145 Coping/Psychosocial Plan Of Care Reviewed With -- [...] Ongoing (Interventions Implemented as Appropriate) 01/01/18 0900 01/03/18 1000 01/03/18 2145 Restraint Interventions Safety Promotion/Fall [...] (Interventions Implemented as Appropriate) 12/31/17 0359 01/03/18 0815 Coping/Psychosocial Plan Of Care Reviewed With [...] (Interventions Implemented as Appropriate) 12/31/17 0359 01/02/18 2104 Coping/Psychosocial Plan Of Care Reviewed With [...] to 0.1mg and MD instructed RN and PHARMACY DIRECTOR to make sure pt. Is getting his [...] Outcome: Ongoing (Interventions Implemented as Appropriate) 12/31/17 03512/31/17 0900 Coping/Psychosocial Plan Of Care Reviewed With [...] Review Outcome: Ongoing (Interventions Implemented as Appropriate) 12/31/17358 Coping/Psychosocial Plan Of Care Reviewed With patient [...] Hourly rounding, 1:1 sitter at bedside, [facility], room near RN station Patient-specific fall prevention [...] vanilla ice cream with his pills tonight. PHARMACY DIRECTOR sitter remains at bedside ensuring safety. PLAN [...] Ongoing (Interventions Implemented as Appropriate) 12/17/17 0523 12/27/172104 Coping/Psychosocial Plan Of Care Reviewed With -- patient Plan of Care Review Progress progress towards functional goals is fair -- OUTCOME EVALUATION NOTE: OUTCOME SUMMARY: Unable to assess orientation as patient would not communicate with this RN anything other than no. Would not allow this RN to perform an assessment. One time BMP obtained at [place]. Incontinent of large amounts of urine. No [...] Outcome: Ongoing (Interventions Implemented as Appropriate) 12/17/17 0512/26/172057 Coping/Psychosocial Plan Of Care Reviewed With -- [...] facility;rehabilitation facility;nursing facility, skilled;nursing facility, basic;adult foster care/half-way Current Discharge Risk chronically ill;cognitively impaired;dependent with mobility/activities of daily living;physical impairment Discharge Disposition still a patient Current Health Outpatient/Agency/Support Group Needs assisted living facility (specify);[facility] ([facility]ify[facility] (specify);half-way (specify) Anticipated Changes Related to Illness none Living Environment Transportation Available family or friend will provide;ambulance;van, wheelchair accessible Activity/Self Care Review of Systems Equipment Currently Used at Home none * Plan of Care - Sarika Michael RN - 12/27/2017 4:35 AM EDT Problem: Patient Care Overview Goal: Plan of Care Review Outcome: Ongoing (Interventions Implemented as Appropriate) 12/17/17 0523 12/26/17 205 Coping/Psychosocial Plan Of Care Reviewed With -- [...] station, call morris within reach, sitter at [facility]. Patient-specific fall prevention interventions for sensory deficits provided, if applicable: [X] N/A CPG GOAL OUTCOME EVALUATION: * Plan of Care - Nickie Zamora RN - 12/26/2017 5:11 PM EDT Problem: Patient Care Overview Goal: Plan of Care Review Outcome: Ongoing (Interventions Implemented as Appropriate) 12/17/1752212/26/17 1300 Coping/Psychosocial Plan Of Care Reviewed With [...] facility;rehabilitation facility;nursing facility, skilled;nursing facility, basic;adult foster care/half-way Current Discharge Risk chronically ill;cognitively impaired;dependent with mobility/activities of daily living;physical impairment Discharge Disposition still a patient Current Health Outpatient/Agency/Support Group Needs assisted living facility (specify);[facility] (specify);[facility] (specify);half-way (specify) Anticipated Changes Related to Illness none [...] Outcome: Ongoing (Interventions Implemented as Appropriate) 12/20/17 162 Thought Process Alteration (Adult) Improved Thought Process [...] Ongoing (Interventions Implemented as Appropriate) 12/17/17 0523 12/25/17 2131 Coping/Psychosocial Plan Of Care Reviewed With -- [...] Ongoing (Interventions Implemented as Appropriate) 12/17/17 0523 12/25/17 1130 Coping/Psychosocial Plan Of Care Reviewed With [...] Outcome: Ongoing (Interventions Implemented as Appropriate) 12/17/1723 12/24/17 2015 Coping/Psychosocial Plan Of Care Reviewed With [...] music and continued with the 1:1 sitter. PHARMACY DIRECTOR played the guitar for pt which appeared [...] Review Outcome: Ongoing (Interventions Implemented as Appropriate) 12/17/1752212/23/17 1045 Coping/Psychosocial Plan Of Care Reviewed With [...] Outcome: Ongoing (Interventions Implemented as Appropriate) 12/17/1752212/22/17 2015 Coping/Psychosocial Plan Of Care Reviewed With [...] went outside this morning with caregiver and PHARMACY DIRECTOR. Pt was incontinent throughout shift. Pt started [...] * Plan of Care - Vandana Jean aBptiste RN - 12/21/2017 5:40 PM EDT Problem: Patient Care Overview Goal: Plan of Care Review Outcome: Ongoing (Interventions Implemented as Appropriate) 12/17/17 0512/21/17 0830 Coping/Psychosocial Plan Of Care Reviewed With -- patient Plan of Care Review Progress progress towards functional goals is fair -- OUTCOME EVALUATION NOTE: OUTCOME SUMMARY: Pt is alert to self, VSS. Pt went outside with caregiver and PHARMACY DIRECTOR. Pt became more agitated in the afternoon, [...] Review Outcome: Ongoing (Interventions Implemented as Appropriate) 12/17/1752212/19/172017 Coping/Psychosocial Plan Of Care Reviewed With -- [...] Ongoing (Interventions Implemented as Appropriate) 12/17/17 0523 12/18/17 2204 Coping/Psychosocial Plan Of Care Reviewed With -- [...] Review Outcome: Ongoing (Interventions Implemented as Appropriate) 12/17/1752212/17/17 0847 Coping/Psychosocial Plan Of Care Reviewed With [...] Ongoing (Interventions Implemented as Appropriate) 12/16/17 0758 Coping/Psychosocial Plan Of Care Reviewed With patient [...] Ongoing (Interventions Implemented as Appropriate) 12/13/1748 12/13/17 1733 Coping Strategies Supportive Measures active listening utilized;decision-making [...] Control Outcome: Ongoing (Interventions Implemented as Appropriate) 12/10/1782912/11/17 0300 Coping Strategies Supportive Measures active listening [...] unable to straight cath and asked RN towait one hour and try to get pt. [...] with FWW and 1-2assist Anticipated Discharge [facility]position[facility] (could go to handicap accesible half-way with assistance) [facility] PTA Pager: [phone] Inpatient Physical Therapy 12/10/17 1145 Rehab Evaluation [...] pain when attempting stairs) Bed Mobility Assessment/Treatment Wghscb-xr-Yvq [place] (Bed Mobility) supervision required Comment (Bed Mobility) extra time required Transfer Assessment/Treatment Bed-Chair [place] (Transfers) minimum assist (75% patient effort) Pcm-Ewhat-Oui Assistive Device (Transfers) rolling walker [place] (Sit-Stand Transfers) supervision required [place] (Stand-Sit Transfers) supervision required Fhy-Fgamg-Gks Assistive Device (Transfers) rolling walker Safety Issues (Transfers) balance decreased during turns;sequencing ability decreased;step length decreased;weight-shifting ability decreased Impairments (Transfers) balance impaired;strength decreased;vision impaired Comment (Transfers) assist for walker management when turning, cues to place L LE flat on the floor Gait Assessment/Treatment [place] (Gait) contact guard assist Assistive Device (Gait) [...] x 1 Handrail Location (Stairs) both sides [place] (Stairs) moderate assist (50% patient effort);2 person [...] all bed mobility activities Bed Mobility Goal, [place] Level moderate assist (50% patient effort) Bed Mobility Goal, Outcome Achieved goal ongoing Gait Training Goal Gait Training Goal, Date Established 09/09/17 Gait Training Goal, Time to Achieve by discharge Gait Training Goal, [place] Level minimum assist (75% patient effort) Gait Training Goal, Assist Device walker, rolling Gait Training Goal, Distance to Achieve 15 ft Gait Training Goal, Outcome goal met Transfer Training Goal Transfer Training Goal, Date Established 09/09/17 Transfer Training Goal, Time to Achieve by discharge Transfer Training Goal, Activity Type gtt-yv-wkgrn/xsyaq-ax-ecf;ruu-za-wuvnv/ziacj-nz-ocz Transfer Train Goal, [place] Level minimum assist (75% patient effort) Transfer Training Goal, Assist Device walker, rolling Transfer Training Goal, Outcome goal ongoing Physical Therapy Goal PT Goal, Date Established 09/09/17 PT Goal, Time to Achieve by discharge PT Goal, Activity Type Pt will propel self in w/c household distances PT Goal, [place] Level set up required;supervision required PT Goal, Outcome goal ongoing Clinical Impression Therapy Frequency 2-4 times/wk Anticipated Equipment Needs at Discharge front wheeled walker Anticipated Discharge Disposition [facility]could go to handicap accesible half-way with assistance) * Plan of Care - Lori Pepe RN - 12/09/2017 11:34 PM EDT Problem: Patient Care Overview Goal: Plan of Care Review Outcome: Ongoing (Interventions Implemented as Appropriate) 12/05/17 1701 12/09/172055 Coping/Psychosocial Plan Of Care Reviewed With -- [...] facility;rehabilitation facility;nursing facility, skilled;nursing facility, basic;adult foster care/half-way Current Discharge Risk chronically ill;cognitively impaired;dependent with mobility/activities of daily living;physical impairment Discharge Disposition still a patient Current Health Outpatient/Agency/Support Group Needs assisted living facility (specify);[facility] ([facility]ify[facility] (specify);half-way (specify) Anticipated Changes Related to Illness none [...] Outcome: Ongoing (Interventions Implemented as Appropriate) 12/09/17 232 Skin Integrity Impairment, Risk/Actual (Adult) Skin Integrity/Wound [...] Pt. Unable to void in AM (MD aware). BS showed 855ml and straight cath was [...] straight cath despite using coude catheter. Night LOOM OPERATOR Marya paged, will pass along to day [...] Outcome: Ongoing (Interventions Implemented as Appropriate) 12/08/17 0720 12/08/17 2000 12/08/17 2200 Restraint Interventions Safety Promotion/Fall Prevention -- [...] facility;rehabilitation facility;nursing facility, skilled;nursing facility, basic;adult foster care/half-way Current Discharge Risk chronically ill;cognitively impaired;dependent with mobility/activities of daily living;physical impairment Discharge Disposition still a patient Current Health Outpatient/Agency/Support Group Needs assisted living facility (specify);[facility] (specify[facility] facility (specify);half-way (specify) Anticipated Changes Related to Illness none [...] offered. Fluid restriction closely monitored. Sitter and homeland security program specialist remained at beside throughout shift. No acute [...] near RN station, jeet, sitter at bedside ?? Patient-specific fall prevention [...] Handling Outcome: Ongoing (Interventions Implemented as Appropriate) 12/06/17193512/07/1783412/07/172033 Restraint Interventions Safety Promotion/Fall Prevention -- -- [...] facility;rehabilitation facility;nursing facility, skilled;nursing facility, basic;adult foster care/half-way Current Discharge Risk chronically ill;cognitively impaired;dependent with mobility/activities of daily living;physical impairment Discharge Disposition still a patient Current Health Outpatient/Agency/Support Group Needs assisted living facility (specify);[facility] ([facility]ify[facility] (specify);half-way (specify) Anticipated Changes Related to Illness none [...] Outcome: Ongoing (Interventions Implemented as Appropriate) 12/08/1748 Skin Integrity Impairment, Risk/Actual (Adult) Skin Integrity/Wound Healing making progress toward outcome Problem: Thought Process Alteration (Adult) Goal: Improved Thought Process Patient will demonstrate the desired outcomes by discharge/transition of care. Outcome: Ongoing (Interventions Implemented as Appropriate) 12/08/1748 Thought Process Alteration (Adult) Improved Thought Process making progress toward outcome Problem: Fluid Volume Excess (Adult,Obstetrics,Pediatric) Goal: Stable Weight Patient will demonstrate the desired outcomes by discharge/transition of care. Outcome: Ongoing (Interventions Implemented as Appropriate) 12/08/1748 Fluid Volume Excess (Adult,Obstetrics,Pediatric) Stable Weight making [...] weakness, deficit or s/s of stroke. VSS. caregivers non medical at bedside, verbalizes I am not 100% [...] [continuous indirect monitoring]: Room near RN station, [facility], sitter at bedside Patient-specific fall prevention interventions [...] facility;rehabilitation facility;nursing facility, skilled;nursing facility, basic;adult foster care/half-way Current Discharge Risk chronically ill;cognitively impaired;dependent with mobility/activities of daily living;physical impairment Discharge Disposition still a patient Current Health Outpatient/Agency/Support Group Needs assisted living facility (specify);[facility] (specify);[facility] (specify);half-way (specify) Anticipated Changes Related to Illness none [...] Ongoing (Interventions Implemented as Appropriate) 12/05/17 1701 12/05/17 1946 Coping/Psychosocial Plan Of Care Reviewed With -- [...] Ongoing (Interventions Implemented as Appropriate) 12/05/17 1701 12/05/17 1946 Coping/Psychosocial Plan Of Care Reviewed With -- [...] (Interventions Implemented as Appropriate) 12/05/17 1400 12/05/17 1946 Restraint Interventions Safety Promotion/Fall Prevention -- activity [...] (Interventions Implemented as Appropriate) 12/05/17 0836 12/05/17 194 Coping Strategies Supportive Measures active listening utilized;positive [...] facility;rehabilitation facility;nursing facility, skilled;nursing facility, basic;adult foster care/half-way Current Discharge Risk chronically ill;cognitively impaired;dependent with mobility/activities of daily living;physical impairment Discharge Disposition still a patient Current Health Outpatient/Agency/Support Group Needs assisted living facility (specify);[facility] (specify);[facility] facility (specify);half-way (specify) Anticipated Changes Related to Illness none [...] Ongoing (Interventions Implemented as Appropriate) 12/05/17 1701 Coping/Psychosocial Plan Of Care Reviewed With patient [...] 120s/RR 20s while sitting up eating dinner, Young aware. Pt denied pain and had [...] facility;rehabilitation facility;nursing facility, skilled;nursing facility, basic;adult foster care/half-way Current Discharge Risk chronically ill;cognitively impaired;dependent with mobility/activities of daily living;physical impairment Discharge Disposition still a patient Current Health Outpatient/Agency/Support Group Needs assisted living facility (specify);[facility] (specify);[facility] facility (specify);half-way (specify) Anticipated Changes Related to Illness none [...] Pt was transferred from wheelchair back to [facility] bed for safety. believes pt is over [...] FWW and 1-2 assist Anticipated Discharge Disposition: [facility] (could go to handicap accesible half-way with assistance) [facility] PTA Pager: [phone] Inpatient Physical Therapy 12/04/17 5091 Rehab Evaluation Document Type therapy note (daily [...] after ambulating, reports pain) Bed Mobility Assessment/Treatment Qqgnsj-xn-Zvn [place] (Bed Mobility) moderate assist (50% patient effort) Comment (Bed Mobility) extra time required, donned socks and gown with assist Transfer Assessment/Treatment Bed-Chair [place] (Transfers) minimum assist (75% patient effort);2 person assist required Esh-Wmosz-Ymq Assistive Device (Transfers) rolling walker [place] (Sit-Stand Transfers) contact guard assist [place] (Stand-Sit Transfers) contact guard assist Qwe-Awbst-Thl Assistive Device (Transfers) rolling walker Safety Issues (Transfers) balance decreased during turns;step length decreased;weight-shifting ability decreased Impairments (Transfers) strength decreased;vision impaired Comment (Transfers) steady with FWW, occasional assist to move walker due to pt's decreased vision Gait Assessment/Treatment [place] (Gait) contact guard assist Assistive Device (Gait) [...] all bed mobility activities Bed Mobility Goal, [place] Level moderate assist (50% patient effort) Bed Mobility Goal, Outcome Achieved goal ongoing Gait Training Goal Gait Training Goal, Date Established 09/09/17 Gait Training Goal, Time to Achieve by discharge Gait Training Goal, [place] Level minimum assist (75% patient effort) Gait Training Goal, Assist Device walker, rolling Gait Training Goal, Distance to Achieve 15 ft Gait Training Goal, Outcome goal met Transfer Training Goal Transfer Training Goal, Date Established 09/09/17 Transfer Training Goal, Time to Achieve by discharge Transfer Training Goal, Activity Type wij-vl-squak/wwqrl-dd-uwr;duy-mi-jgfvv/vgcht-ow-jxh Transfer Train Goal, [place] Level minimum assist (75% patient effort) Transfer Training Goal, Assist Device walker, rolling Transfer Training Goal, Outcome goal ongoing Physical Therapy Goal PT Goal, Date Established 09/09/17 PT Goal, Time to Achieve by discharge PT Goal, Activity Type Pt will propel self in w/c household distances PT Goal, [place] Level set up required;supervision required PT Goal, Outcome goal ongoing Clinical Impression Therapy Frequency 2-4 times/wk Anticipated Discharge Disposition [facility]could go to handicap accesible half-way with assistance) * Plan of Care - [...] pt and then also put on the [employer] for him to listen to. This [...] ground, as well as, sitter playing the [place] [employer]. The music, especially the guitar and Betsy Evart CD seemed to calm pt a bit, [...] Ongoing (Interventions Implemented as Appropriate) 11/25/17 0401 12/01/172025 Coping/Psychosocial Plan Of Care Reviewed With -- [...] Ongoing (Interventions Implemented as Appropriate) 11/25/17 0401 12/01/172025 Coping/Psychosocial Plan Of Care Reviewed With -- [...] Outcome: Ongoing (Interventions Implemented as Appropriate) 11/29/17 0558 11/30/17211412/01/17 0150 Restraint Interventions Safety Promotion/Fall Prevention -- [...] (Interventions Implemented as Appropriate) 11/25/17 0401 11/28/17 09 Coping/Psychosocial Plan Of Care Reviewed With [...] Ongoing (Interventions Implemented as Appropriate) 11/25/17 0401 05/24/18 2107 Coping/Psychosocial Plan Of Care Reviewed With [...] in pain. PRN dilaudid given in the salesperson pianos and organs for pain as well. Incontinent of urine [...] Care? -- -- SisterBettina, is his guardian Goal: Fall Prevention-Safe Patient [...] facility;rehabilitation facility;nursing facility, skilled;nursing facility, basic;adult foster care/half-way Current Discharge Risk chronically ill;cognitively impaired;dependent with mobility/activities of daily living;physical impairment Discharge Disposition still a patient Current Health Outpatient/Agency/Support Group Needs assisted living facility (specify[facility] (specify);half-way (specify) Anticipated Changes Related to Illness none Living Environment Transportation Available family or friend will provide;ambulance;van, wheelchair accessible Activity/Self Care Review of Systems Equipment Currently Used at Home none Goal: Interdisciplinary Rounds/Family Conf Outcome: Ongoing (Interventions Implemented as Appropriate) 11/23/172133 Interdisciplinary Rounds/Family Conf Participants nursing;occupational therapy;physical therapy;physician;patient;social work/services;dietitian/nutrition services;casework supervisor Problem: Skin Integrity Impairment, Risk/Actual (Adult) Goal: [...] Review Outcome: Ongoing (Interventions Implemented as Appropriate) 11/25/1740011/25/172048 Coping/Psychosocial Plan Of Care Reviewed With -- [...] Handling Outcome: Ongoing (Interventions Implemented as Appropriate) 11/23/177 11/24/17205611/25/17 1000 Restraint Interventions Safety Promotion/Fall Prevention -- [...] facility;rehabilitation facility;nursing facility, skilled;nursing facility, basic;adult foster care/half-way Current Discharge Risk chronically ill;cognitively impaired;dependent with mobility/activities of daily living;physical impairment Discharge Disposition still a patient Current Health Outpatient/Agency/Support Group Needs assisted living facility (specify);[facility] ([facility]ify);[facility] acute [facility] facility (specify);half-way (specify) Anticipated Changes Related to Illness none Living Environment Transportation Available family or friend will provide;ambulance;van, wheelchair accessible Activity/Self Care Review of Systems Equipment Currently Used at Home none Goal: Interdisciplinary Rounds/Family Conf Outcome: Ongoing (Interventions Implemented as Appropriate) 11/23/174 Interdisciplinary Rounds/Family Conf Participants nursing;occupational therapy;physical therapy;physician;patient;social work/services;dietitian/nutrition services;casework supervisor Problem: Skin Integrity Impairment, Risk/Actual (Adult) Goal: [...] FWW and frequent cues Anticipated Discharge [facility]position[facility] (could go to handicap accesible half-way with assistance) [facility] PTA Pager: [phone] Inpatient Physical Therapy 11/25/17 1030 Rehab Evaluation Document Type therapy note [...] (frequently reported no pain) Bed Mobility Assessment/Treatment Nsclmn-ja-Lyf [place] (Bed Mobility) moderate assist (50% patient effort) Cut-gk-Xdinus [place] (Bed Mobility) minimum assist (75% patient effort) Impairments (Bed Mobility) vision impaired Comment (Bed Mobility) Extra time required, able to reposition himself in bed Transfer Assessment/Treatment Bed-Chair [place] (Transfers) moderate assist (50% patient effort);2 person assist required Chair-Bed [place] (Transfers) moderate assist (50% patient effort);2 person assist required Cdl-Smtjy-Geo Assistive Device (Transfers) (B hand hold) [place] (Sit-Stand Transfers) contact guard assist [place] (Stand-Sit Transfers) contact guard assist Jwx-Ircyc-Qda Assistive Device (Transfers) (// bars) [place] (Toilet Transfers) minimum assist (75% patient effort);2 [...] for any period of time Gait Assessment/Treatment [place] (Gait) contact guard assist;2 person assist required [...] all bed mobility activities Bed Mobility Goal, [place] Level moderate assist (50% patient effort) Bed Mobility Goal, Outcome Achieved goal ongoing Gait Training Goal Gait Training Goal, Date Established 09/09/17 Gait Training Goal, Time to Achieve by discharge Gait Training Goal, [place] Level minimum assist (75% patient effort) Gait Training Goal, Assist Device walker, rolling Gait Training Goal, Distance to Achieve 15 ft Gait Training Goal, Outcome goal ongoing Transfer Training Goal Transfer Training Goal, Date Established 09/09/17 Transfer Training Goal, Time to Achieve by discharge Transfer Training Goal, Activity Type zsp-bp-pmrxt/kpqaf-oa-pde;wev-em-iajdp/vzudu-mr-msh Transfer Train Goal, [place] Level minimum assist (75% patient effort) Transfer Training Goal, Assist Device walker, rolling Transfer Training Goal, Outcome goal ongoing Physical Therapy Goal PT Goal, Date Established 09/09/17 PT Goal, Time to Achieve by discharge PT Goal, Activity Type Pt will propel self in w/c household distances PT Goal, [place] Level set up required;supervision required PT Goal, Outcome goal ongoing Clinical Impression Therapy Frequency 2-4 times/wk Anticipated Discharge Disposition [facility]could go to handicap accesible half-way with assistance) * Plan of Care - [...] sitter. Pt was agitated and restless from 3620-6423 and then seemed to calm down and [...] use of adaptive equipment encouraged -- -- At[place] Fall Risk History of Falling -- 25 [...] facility;rehabilitation facility;nursing facility, skilled;nursing facility, basic;adult foster care/half-way Current Discharge Risk chronically ill;cognitively impaired;dependent with mobility/activities of daily living;physical impairment Discharge Disposition still a patient Current Health Outpatient/Agency/Support Group Needs assisted living facility (specify);[facility] (specify);[facility] care facility (specify);half-way (specify) Anticipated Changes Related to Illness none Living Environment Transportation Available family or friend will provide;ambulance;van, wheelchair accessible Activity/Self Care Review of Systems Equipment Currently Used at Home none Goal: Interdisciplinary Rounds/Family Conf Outcome: Ongoing (Interventions Implemented as Appropriate) 11/23/17 2134 Interdisciplinary Rounds/Family Conf Participants nursing;occupational therapy;physical therapy;physician;patient;social work/services;dietitian/nutrition services;casework supervisor Problem: Skin Integrity Impairment, Risk/Actual (Adult) Goal: [...] net bed in use. 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 Will continue to monitor and await placement. [...] Outcome: Ongoing (Interventions Implemented as Appropriate) 11/23/17 4928 Coping/Psychosocial Plan Of Care Reviewed With patient;caregiver;daughter;family;guardian;friend [...] of Care - Carolin Bella RN - 11/22/2017 8:36 PM EDT Problem: Patient Care Overview Goal: Plan of Care Review Outcome: Ongoing (Interventions Implemented as Appropriate) 11/22/172033 Coping/Psychosocial Plan Of Care Reviewed With patient;caregiver;sibling;durable power of contracts attorney;guardian;family Plan of Care Review Progress progress towards [...] Patient with a sitter all shift, and clinical care coordinator from half-way at bedside. Patient extremely agitated all shift, [...] diagnosis and active problem list. RN and PHARMACY DIRECTOR's state noskin issues at this time. Wound [...] Please contact ANIKET ANDERS RN on pager [phone] or the wound care team at [phone] or pager [phone] with skin and wound care concerns or [...] Outcome: Ongoing (Interventions Implemented as Appropriate) 11/17/17 0811/17/171899 Restraint Interventions Safety Promotion/Fall Prevention -- safety [...] Control Outcome: Ongoing (Interventions Implemented as Appropriate) 11/17/1779911/17/171899 Coping Strategies Supportive Measures active listening utilized;decision-making supported;goal setting facilitated;positive reinforcement provided;problem solving facilitated -- Safety Interventions Isolation Precautions -- standard precautions maintained Infection Prevention -- environmental surveillance performed;rest/sleep promoted;single patient room provided Goal: Discharge Needs Assessment Outcome: Ongoing (Interventions Implemented as Appropriate) 11/05/17 0354 11/05/17 18111/17/17 182 Discharge Needs Assessment Concerns To Be Addressed -- -- discharge planning concerns;coping/stress concerns;cognitive/perceptual concerns Readmission Within The Last 30 Days -- no previous admission in last 30 days -- Equipment Needed After Discharge (no specialty bed) -- -- Discharge Facility/Level Of Care Needs -- adult foster care/half-way -- Current Discharge Risk -- cognitively impaired;physical impairment -- Discharge Disposition -- still a patient -- Current Health Outpatient/Agency/Support Group Needs -- half-way (specify) -- Anticipated Changes Related to Illness -- none -- Living Environment Transportation Available -- car -- Activity/Self Care Review of Systems Equipment Currently Used at Home -- none -- * Plan of Care - Herve Chambers RN - 11/17/2017 6:55 PM EDT Problem: Patient Care Overview Goal: Discharge Needs Assessment Outcome: Ongoing (Interventions Implemented as Appropriate) 11/17/17 1828 Discharge Needs Assessment Concerns To Be Addressed [...] Care - Vandana Jean Baptiste RN - 11/16/2017 6:21 PM EDT Problem: Patient Care Overview Goal: Plan of Care Review Outcome: Ongoing (Interventions Implemented as Appropriate) 11/10/17200011/16/17 0900 Coping/Psychosocial Plan Of Care Reviewed With -- patient;caregiver Plan of Care Review Progress no change -- OUTCOME EVALUATION NOTE: OUTCOME SUMMARY: Pt alert, HR tachy, aware. Pt seemed more agitated today. We [...] Review Outcome: Ongoing (Interventions Implemented as Appropriate) 11/10/17200011/15/172123 Coping/Psychosocial Plan Of Care Reviewed With -- [...] Review Outcome: Ongoing (Interventions Implemented as Appropriate) 11/10/17200011/13/172099 Coping/Psychosocial Plan Of Care Reviewed With -- [...] Facility/Level Of Care Needs -- adult foster care/half-way Current Discharge Risk -- cognitively impaired;physical impairment Discharge Disposition -- still a patient Current Health Outpatient/Agency/Support Group Needs -- half-way (specify) Anticipated Changes Related to Illness -- [...] more cooperative today and receptive to this clinical care coordinator. Sitter at bedside. PLAN MOVING FORWARD: Continue [...] Facility/Level Of Care Needs -- adult foster care/half-way Current Discharge Risk -- cognitively impaired;physical impairment Discharge Disposition -- still a patient Current Health Outpatient/Agency/Support Group Needs -- half-way (specify) Anticipated Changes Related to Illness -- [...] 2 assist and FWW Anticipated Discharge [facility]position: [facility] (could go to handicap accesible half-way with assistance) [facility] PTA Pager: [phone] Inpatient Physical Therapy 11/12/17 1040 Rehab Evaluation [...] no pain when asked) Bed Mobility Assessment/Treatment Ekmgdf-wk-Rgr [place] (Bed Mobility) moderate assist (50% patient effort) Sty-bv-Gcpxkk [place] (Bed Mobility) minimum assist (75% patient effort) [...] walker was not available Transfer Assessment/Treatment Bed-Chair [place] (Transfers) minimum assist (75% patient effort);2 person assist required Chair-Bed [place] (Transfers) maximum assist (25% patient effort);2 person assist required Fkr-Djzms-Lqs Assistive Device (Transfers) rolling walker [place] (Sit-Stand Transfers) minimum assist (75% patient effort);2 person assist required [place] (Stand-Sit Transfers) minimum assist (75% patient effort);2 person assist required Mrx-Fucwr-Ysw Assistive Device (Transfers) rolling walker [place] (Toilet Transfers) minimum assist (75% patient effort) [...] placed in front of him Gait Assessment/Treatment [place] (Gait) minimum assist (75% patient effort) Assistive [...] all bed mobility activities Bed Mobility Goal, [place] Level moderate assist (50% patient effort) Bed Mobility Goal, Outcome Achieved goal ongoing Gait Training Goal Gait Training Goal, Date Established 09/09/17 Gait Training Goal, Time to Achieve by discharge Gait Training Goal, [place] Level minimum assist (75% patient effort) Gait Training Goal, Assist Device walker, rolling Gait Training Goal, Distance to Achieve 15 ft Gait Training Goal, Outcome goal ongoing Transfer Training Goal Transfer Training Goal, Date Established 09/09/17 Transfer Training Goal, Time to Achieve by discharge Transfer Training Goal, Activity Type zuv-rz-nqzjb/rpchs-sj-tmj;baq-hi-dzhyr/hhplo-wn-uhv Transfer Train Goal, [place] Level minimum assist (75% patient effort) Transfer Training Goal, Assist Device walker, rolling Transfer Training Goal, Outcome goal ongoing Physical Therapy Goal PT Goal, Date Established 09/09/17 PT Goal, Time to Achieve by discharge PT Goal, Activity Type Pt will propel self in w/c household distances PT Goal, [place] Level set up required;supervision required PT Goal, Outcome goal ongoing Clinical Impression Therapy Frequency 2-4 times/wk Anticipated Discharge Disposition [facility]could go to handicap accesible half-way with assistance) * Plan of Care - [...] Facility/Level Of Care Needs -- adult foster care/half-way Current Discharge Risk -- cognitively impaired;physical impairment Discharge Disposition -- still a patient Current Health Outpatient/Agency/Support Group Needs -- half-way (specify) Anticipated Changes Related to Illness -- [...] Control Outcome: Ongoing (Interventions Implemented as Appropriate) 11/09/17202911/10/17924 Coping Strategies Supportive Measures relaxation techniques promoted [...] down around 2200 with a restful night. Incisions??ZULMA and well-approximated/healed. Sitter??at bedside throughout shift. Patient [...] -- Current Health Outpatient/Agency/Support Group Needs -- half-way (specify) -- Anticipated Changes Related to Illness none -- -- Living Environment Transportation Available -- car (caregiver from half-way) -- Activity/Self Care Review of Systems Equipment Currently Used at Home -- none -- ? 10/03/17 1654 ? Discharge Needs Assessment ? Concerns To Be Addressed -- ? Readmission Within The Last 30 Days -- ? Equipment Needed After Discharge -- ? Discharge Facility/Level Of Care Needs adult foster care/half-way ? Current Discharge Risk -- ? Discharge [...] Plan Of Care Reviewed With -- patient (clinical care coordinator) Plan of Care Review Progress no change [...] shift but slept well since 0200. Incisions ZULMA andwell-approximated/healed. Sitter??at bedside throughout shift. Patient incontinent [...] Goal: Plan of Care Review ? 10/03/17 0510/03/17899 Coping/Psychosocial Plan Of Care Reviewed With -- patient;caregiver Plan of Care Review Progress no change -- ? Goal: Fall Prevention-Safe Patient Handling ? 10/03/17 0910/03/172147 Restraint Interventions Safety Promotion/Fall Prevention [...] -- High ? Goal: Infection Control ? 10/03/17899 Safety Interventions Isolation Precautions standard precautions maintained [...] -- Current Health Outpatient/Agency/Support Group Needs -- half-way (specify) -- Anticipated Changes Related to Illness none -- -- Living Environment Transportation Available -- car (caregiver from half-way) -- Activity/Self Care Review of Systems Equipment Currently Used at Home -- none -- ? 10/03/17 1654 ? Discharge Needs Assessment ? Concerns To Be Addressed -- ? Readmission Within The Last 30 Days -- ? Equipment Needed After Discharge -- ? Discharge Facility/Level Of Care Needs adult foster care/half-way ? Current Discharge Risk -- ? Discharge [...] SUMMARY: Patient progressing at this time. VSS. Developmental Behavioral Physician at bedside continuously this shift. Urinary incontinence [...] self care tasks Anticipated Discharge Disposition: (P[facility] Pager: [phone] ZULMA Vargas 11/07/2017 Occupational Therapy Rehabilitation Department [...] time;needs repetition Bed Mobility Assessment/Treatment Roll Right [place] (Bed Mobility) independent Transfer Assessment/Treatment [place] (Sit-Stand Transfers) minimum assist (75% patient effort) [place] (Stand-Sit Transfers) minimum assist (75% patient effort) Wwd-Ummkf-Jrh Assistive Device (Transfers) rolling walker Ysy-Yefqg-Dzk Assistive Device (Transfers) rolling walker Chair-Bed [place] (Transfers) minimum assist (75% patient effort);verbal cues required Upper Body Dressing Assessment/Training Position (UB Dressing) supported sitting [place] Level (UB Dressing) set up required Comment (UB Dressing) to trent kramer Lower Body Dressing Assessment/Training Position (LB Dressing) sitting;standing [place] Level (LB Dressing) set up required Impairments (LB Dressing) balance impaired;vision impaired;pain;ROM (range of motion) decreased Comment (LB Dressing) to trent hall Grooming Assessment/Training Position (Grooming) supported sitting [place] Level (Grooming) set up required Comment (Grooming) [...] wheelchair, commode, shower seat) Anticipated Discharge Disposition [facility] * Plan of Care - Louis [...] transfers with 2 assist Anticipated Discharge Disposition: [facility] (could go to handicap accesible half-way with assistance) [facility] PTA Pager: [phone] Inpatient Physical Therapy 11/07/17 1030 Rehab Evaluation [...] Assessment/Treatment Assistive Device (Bed Mobility) bed rails Uvplpu-si-Pnd [place] (Bed Mobility) minimum assist (75% patient effort) Safety Issues (Bed Mobility) decreased use of legs for bridging/pushing Impairments (Bed Mobility) vision impaired Comment (Bed Mobility) HOB slightly elevated, extra time required Transfer Assessment/Treatment Bed-Chair [place] (Transfers) moderate assist (50% patient effort);2 person assist required Chair-Bed [place] (Transfers) moderate assist (50% patient effort);2 person assist required Hvh-Vdlyn-Zyt Assistive Device (Transfers) (B hand hold) [place] (Sit-Stand Transfers) minimum assist (75% patient effort);2 person assist required [place] (Stand-Sit Transfers) minimum assist (75% patient effort);2 person assist required Dxi-Msxzn-Pqj Assistive Device (Transfers) rolling walker [place] (Toilet Transfers) moderate assist (50% patient effort);2 person assist required Assistive Device (Toilet Transfers) bedside commode;rolling walker Maintain Weight Bearing Status (Transfers) able to maintain weight bearing status Safety Issues (Transfers) balance decreased during turns;sequencing ability decreased;weight-shifting ability decreased;loses balance backward Impairments (Transfers) balance impaired;strength decreased;vision impaired Comment (Transfers) transferred from various surfaces, difficulty turning, poor eccentric control when sitting Gait Assessment/Treatment [place] (Gait) minimum assist (75% patient effort);2 person [...] all bed mobility activities Bed Mobility Goal, [place] Level moderate assist (50% patient effort) Bed Mobility Goal, Outcome Achieved goal ongoing Gait Training Goal Gait Training Goal, Date Established 09/09/17 Gait Training Goal, Time to Achieve by discharge Gait Training Goal, [place] Level minimum assist (75% patient effort) Gait Training Goal, Assist Device walker, rolling Gait Training Goal, Distance to Achieve 15 ft Gait Training Goal, Outcome goal ongoing Transfer Training Goal Transfer Training Goal, Date Established 09/09/17 Transfer Training Goal, Time to Achieve by discharge Transfer Training Goal, Activity Type ytm-fc-vkbhp/mlgtz-on-xsx;ihg-nx-kirgj/flqzk-th-jsy Transfer Train Goal, [place] Level minimum assist (75% patient effort) Transfer Training Goal, Assist Device walker, rolling Transfer Training Goal, Outcome goal ongoing Physical Therapy Goal PT Goal, Date Established 09/09/17 PT Goal, Time to Achieve by discharge PT Goal, Activity Type Pt will propel self in w/c household distances PT Goal, [place] Level set up required;supervision required PT Goal, Outcome goal ongoing Clinical Impression Therapy Frequency 2-4 times/wk Anticipated Discharge Disposition [facility] (could go to handicap accesible half-way with assistance) * Plan of Care - Pamela Mei RN - 11/07/2017 3:34 AM EDT OUTCOME EVALUATION NOTE: ? OUTCOME SUMMARY: ? Patient responding with one word answers intermittently this shift and occasionally follows commands per baseline. Screaming throughout shift with longer periods of sleep/restfulness than last night.Incisions VEHICLE OPERATOR TECHNICIAN and well- approximated/healed. Sitter at bedside throughout [...] Goal: Fall Prevention-Safe Patient Handling ? 10/03/17 0910/03/172147 Restraint Interventions Safety Promotion/Fall Prevention [...] -- Current Health Outpatient/Agency/Support Group Needs -- half-way (specify) -- Anticipated Changes Related to Illness none -- -- Living Environment Transportation Available -- car (caregiver from half-way) -- Activity/Self Care Review of Systems Equipment Currently Used at Home -- none -- ? 10/03/17 1654 ?? Discharge Needs Assessment ?? Concerns To Be Addressed -- ?? Readmission Within The Last 30 Days -- ?? Equipment Needed After Discharge -- ?? Discharge Facility/Level Of Care Needs adult foster care/half-way ?? Current Discharge Risk -- ?? Discharge [...] administered per order using FACES scale. Incision ZULMA and well-approximated/healed. Sitter at bedside throughout shift. [...] of Care Review ?? 10/03/17 0510 10/03/17 09 Coping/Psychosocial Plan Of Care Reviewed With -- patient;caregiver Plan of Care Review Progress no change -- ? Goal: Fall Prevention-Safe Patient Handling ?? 10/03/17 0900 10/03/172147 Restraint Interventions Safety Promotion/Fall Prevention activity supervised;fall [...] -- Current Health Outpatient/Agency/Support Group Needs -- half-way (specify) -- Anticipated Changes Related to Illness none -- -- Living Environment Transportation Available -- car (caregiver from half-way) -- Activity/Self Care Review of Systems Equipment Currently Used at Home -- none -- ?? 10/03/17 1654 Discharge Needs Assessment Concerns To Be Addressed -- Readmission Within The Last 30 Days -- Equipment Needed After Discharge -- Discharge Facility/Level Of Care Needs adult foster care/half-way Current Discharge Risk -- Discharge Disposition -- [...] Facility/Level Of Care Needs -- adult foster care/half-way Current Discharge Risk -- cognitively impaired;physical impairment Discharge Disposition -- still a patient Current Health Outpatient/Agency/Support Group Needs -- half-way (specify) Anticipated Changes Related to Illness -- [...] Ongoing (Interventions Implemented as Appropriate) 11/05/17 1820 Coping/Psychosocial Plan Of Care Reviewed With patient [...] NKE at bedside, call morris within reach, clinical care coordinator at bedside Patient-specific fall prevention interventions for [...] pivot with 2 assist Anticipated Discharge Disposition: [facility] (could go to handicap accesible half-way with assistance) [facility] PTA Pager: [phone] Inpatient Physical Therapy 11/05/17 1002 Rehab Evaluation Document Type therapy note (daily [...] Assessment/Treatment Assistive Device (Bed Mobility) bed rails Danbnc-yl-Zwx [place] (Bed Mobility) supervision required Comment (Bed Mobility) HOB elevated, steady in sitting Transfer Assessment/Treatment Bed-Chair Oz[place] (Transfers) minimum assist (75% patient effort);moderate assist (50% patienteffort);2 person assist required Chair-Bed [place] (Transfers) minimum assist (75% patient effort);moderate assist (50% patienteffort);2 person assist required Ion-Iwnvk-Fkw Assistive Device (Transfers) rolling walker [place] (Sit-Stand Transfers) minimum assist (75% patient effort);2 person assist required [place] (Stand-Sit Transfers) minimum assist (75% patient effort);2 person assist required Neu-Nbyui-Hka Assistive Device (Transfers) rolling walker Maintain Weight Bearing Status (Transfers) able to maintain weight bearing status Safety Issues (Transfers) balance decreased during turns;sequencing ability decreased;step length decreased;weight-shifting ability decreased Impairments (Transfers) balance impaired;strength decreased Comment (Transfers) Step by step cues provided, slightly unsteady and leaning toward the L in standing Gait Assessment/Treatment [place] (Gait) minimum assist (75% patient effort);moderate assist [...] all bed mobility activities Bed Mobility Goal, Ozark Level moderate assist (50% patient effort) Bed Mobility Goal, Outcome Achieved goal ongoing Gait Training Goal Gait Training Goal, Date Established 09/09/17 Gait Training Goal, Time to Achieve by discharge Gait Training Goal, [place] Level minimum assist (75% patient effort) Gait Training Goal, Assist Device walker, rolling Gait Training Goal, Distance to Achieve 15 ft Gait Training Goal, Outcome goal ongoing Transfer Training Goal Transfer Training Goal, Date Established 09/09/17 Transfer Training Goal, Time to Achieve by discharge Transfer Training Goal, Activity Type ibt-mg-hjlwz/ymbof-nl-wju;lzm-ym-ngcay/yynoj-qg-qlh Transfer Train Goal, [place] Level minimum assist (75% patient effort) Transfer Training Goal, Assist Device walker, rolling Transfer Training Goal, Outcome goal ongoing Physical Therapy Goal PT Goal, Date Established 09/09/17 PT Goal, Time to Achieve by discharge PT Goal, Activity Type Pt will propel self in w/c household distances PT Goal, [place] Level set up required;supervision required PT Goal, [...] Discharge Facility/Level Of Care Needs adult foster care/half-way Current Discharge Risk cognitively impaired;physical impairment Discharge [...] clear yellow urine. Incision remains c/d/i and VEHICLE OPERATOR TECHNICIAN. Will continue to monitor. PLAN MOVING FORWARD: [...] nursing;patient * Plan of Care - Skyla Ayala OT - 11/04/2017 12:30 PM EDT Occupational [...] with assistance of 2. Anticipated Discharge Disposition: [facility], other (see comments) (vs. 27/01 assistance, PT/OT) Pager: [phone] SKYLA AYALA OT 11/04/2017 Occupational Therapy Rehabilitation [...] Mobility) bed rails (HOB slightly raised ) Hbxgti-pg-Rwu Oz[place] (Bed Mobility) minimum assist (75% patient effort);verbal cues required Impairments (Bed Mobility) pain;flexibility decreased (increased time, slow transition ) Comment (Bed Mobility) able to sit eob with supervision Roll Left [place] (Bed Mobility) minimum assist (75% patient effort);verbal cues required (tactile cues ) Roll Right [place] (Bed Mobility) minimum assist (75% patient effort);verbal cues required (tactile cues) Transfer Assessment/Treatment [place] (Sit-Stand Transfers) minimum assist (75% patient effort);verbal cues required;contactguard assist (1-2, tactile cues) [place] (Stand-Sit Transfers) moderate assist (50% patient effort);verbal cues required (as tries to sit prematurely before squared up) Impairments (Transfers) balance impaired;strength decreased;other (see comments) (restricted weight bearing, poor safety awareness) Comment (Transfers) pivoted from bed to w/c. Got up to w/c to head off floor with caregiver to get hair cut. Bed-Chair [place] (Transfers) minimum assist (75% patient effort);verbal cues required;contactguard assist (1-2) Udt-Klyyb-Mug Assistive Device (Transfers) rolling walker Upper Body Dressing Assessment/Training Position (UB Dressing) supported sitting (in w/c) Oz[place] Level (UB Dressing) set up required;verbal cues required;minimum assist (75% patient effort) Impairments (UB Dressing) balance impaired;other (see comments);vision impaired (orientating item, ) Comment (UB Dressing) help to orient shirt for Pt and Pt was able to don arms/head through and pulldown with prompts seated in w/c. Lower Body Dressing Assessment/Training Position (LB Dressing) supine Ozark Level (LB Dressing) set up required;verbal cues [...] of caregiver. Toileting Assessment/Training Position (Toileting) supine Oz[place] Level (Toileting) minimum assist (75% patient effort);set [...] commode, shower seat ) Anticipated Discharge Disposition [facility];other (see comments) (vs. 27/01 assistance, PT/OT) [...] Pt assisted to bedside commode during shift. Developmental Behavioral Physician at bedside. Will continue to monitor. PLAN [...] intermittently assisted to bedside commode during shift. Developmental Behavioral Physician at bedside. Will continue to monitor. PLAN MOVING FORWARD: Pain/spasm control Ongoing D/C planning INDIVIDUALIZED FALL PREVENTION INTERVENTIONS: Patient-specific fall risk factors per assessment: [current deficits]: Cognitive impairment, impaired mobility Assistance [level of assistance required for transfers and ambulation]: 1-2 assist Supervision [direct monitoring required during toileting and ADLs]: Hands on Surveillance [continuous indirect monitoring]: Developmental Behavioral Physician at bedside, hourly rounding, NKE CPG GOAL [...] go outside with supervision from staff and bone char operator. Developmental Behavioral Physician at bedside throughout shift. Pt. Assisted to [...] Ongoing (Interventions Implemented as Appropriate) 10/31/17 0251 10/31/17 2106 Coping/Psychosocial Plan Of Care Reviewed With -- [...] with 1-2 assist, FWW Anticipated Discharge Disposition: [facility] (could go to handicap accesible half-way with assistance) LOUIS DORAN PTA Pager: [phone] Inpatient Physical Therapy 10/31/17 1230 Rehab Evaluation Document Type therapy note (daily note) Total Evaluation Minutes, Physical Therapy 30 (TE-F x 2) Patient Effort excellent Symptoms Noted During/After Treatment none General Information Patient/Family/Caregiver Comments/Observations Minimal yelling today, followed direction well Precautions/Restrictions fall Treatment Number PT 8 Pain Scale/Rating Pain Assessment Scale Faces (Roberson-Carter FACES Pain Rating Scale) Pain Level 0 Transfer Assessment/Treatment [place] (Sit-Stand Transfers) minimum assist (75% patient effort) [place] (Stand-Sit Transfers) moderate assist (50% patient effort) Pyp-Elmvq-Wfz Assistive Device (Transfers) rolling walker (// bars) Maintain Weight Bearing Status (Transfers) able to maintain weight bearing status Safety Issues (Transfers) step length decreased;weight-shifting ability decreased Impairments (Transfers) strength decreased Comment (Transfers) Poor eccentric control when sitting Gait Assessment/Treatment [place] (Gait) minimum assist (75% patient effort);2 person [...] all bed mobility activities Bed Mobility Goal, [place] Level moderate assist (50% patient effort) Bed Mobility Goal, Outcome Achieved goal ongoing Gait Training Goal Gait Training Goal, Date Established 09/09/17 Gait Training Goal, Time to Achieve by discharge Gait Training Goal, [place] Level minimum assist (75% patient effort) Gait Training Goal, Assist Device walker, rolling Gait Training Goal, Distance to Achieve 15 ft Gait Training Goal, Outcome goal ongoing Transfer Training Goal Transfer Training Goal, Date Established 09/09/17 Transfer Training Goal, Time to Achieve by discharge Transfer Training Goal, Activity Type jmo-ut-pwdnv/zygeb-lo-kvo;por-ml-ukoqt/eupta-sl-ais Transfer Train Goal, [place] Level minimum assist (75% patient effort) Transfer Training Goal, Assist Device walker, rolling Transfer Training Goal, Outcome goal ongoing Physical Therapy Goal PT Goal, Date Established 09/09/17 PT Goal, Time to Achieve by discharge PT Goal, Activity Type Pt will propel self in w/c household distances PT Goal, [place] Level set up required;supervision required PT Goal, [...] Ongoing (Interventions Implemented as Appropriate) 10/29/17 1441 10/29/17 2127 Coping/Psychosocial Plan Of Care Reviewed With -- patient Plan of Care Review Progress no change -- OUTCOME EVALUATION NOTE: OUTCOME SUMMARY: Patient alert, VSs stable. Pt very agitated through the night, incessantly screaming and moaning; slept only from approximately 9217-0233. made aware. Pt denied pain. Exhausted all [...] ADLs]: Hands on. Surveillance [continuous indirect monitoring]: solo Marcanoful rounding, NKE, sitter at bedside. Patient-specific fall [...] Of Care Needs -- -- adult foster care/half-way Current Discharge Risk -- cognitively impaired;physical impairment -- Discharge Disposition -- still a patient -- Current Health Outpatient/Agency/Support Group Needs -- half-way (specify) -- Anticipated Changes Related to Illness none -- -- Living Environment Transportation Available -- car (caregiver from half-way) -- Activity/Self Care Review of Systems Equipment [...] ADLs]: Hands on. Surveillance [continuous indirect monitoring]: Lennoxo, purposeful rounding, NKE, sitter at bedside. Patient-specific [...] Of Care Needs -- -- adult foster care/half-way Current Discharge Risk -- cognitively impaired;physical impairment -- Discharge Disposition -- still a patient -- Current Health Outpatient/Agency/Support Group Needs -- half-way (specify) -- Anticipated Changes Related to Illness none -- -- Living Environment Transportation Available -- car (caregiver from half-way) -- Activity/Self Care Review of Systems Equipment [...] * Plan of Care - Kris Crawley Doris - 10/28/2017 4:01 PM EDT Problem: Patient [...] Pt went around facility w/ caregiver and PHARMACY DIRECTOR in wheelchair. Less than 2000ml given throughout day. See Doc Flowsheet for details. Incontinence care given post urine and stool occurrence. Will continue to monitor and help patient reach d/c goals. PLAN MOVING FORWARD: Pain control Mobilize out of bed. D/c planning INDIVIDUALIZED FALL PREVENTION: Patient is currently a high risk to Fall. residential caregiver at bedside or one-to-one monitoring in place [...] Handling Outcome: Ongoing (Interventions Implemented as Appropriate) 10/27/17 2149 10/28/17 1059 10/28/17 1248 Restraint Interventions Safety Promotion/Fall [...] High -- -- Goal: Infection Control 10/28/17 1059 10/28/17 1539 Coping Strategies Supportive Measures -- active [...] Of Care Needs -- -- adult foster care/half-way Current Discharge Risk -- cognitively impaired;physical impairment -- Discharge Disposition -- still a patient -- Current Health Outpatient/Agency/Support Group Needs -- half-way (specify) -- Anticipated Changes Related to Illness none -- -- Living Environment Transportation Available -- car (caregiver from half-way) -- Activity/Self Care Review of Systems Equipment [...] monitoring]: Jeet, purposeful rounding, NKE, sitter at bedside Patient-specific fall prevention interventions [...] Of Care Needs -- -- adult foster care/half-way Current Discharge Risk -- cognitively impaired;physical impairment -- Discharge Disposition -- still a patient -- Current Health Outpatient/Agency/Support Group Needs -- half-way (specify) -- Anticipated Changes Related to Illness none -- -- Living Environment Transportation Available -- car (caregiver from half-way) -- Activity/Self Care Review of Systems Equipment [...] Ongoing (Interventions Implemented as Appropriate) 10/24/17 0125 10/26/172135 Coping/Psychosocial Plan Of Care Reviewed With -- patient;other (see comments) (PHARMACY DIRECTOR/sitter) Plan of Care Review Progress no change [...] ADLs]: Hands on Surveillance [continuous indirect monitoring]: Jeet, purposeful rounding, GRABIEL, sitter Patient-specific fall prevention interventions for sensory [...] Ongoing (Interventions Implemented as Appropriate) 10/26/17 0935 10/26/176 10/27/17 0400 Restraint Interventions Safety Promotion/Fall Prevention [...] Control Outcome: Ongoing (Interventions Implemented as Appropriate) 10/26/17 2136 10/27/17 0400 Coping Strategies Supportive Measures active [...] Of Care Needs -- -- adult foster care/half-way Current Discharge Risk -- cognitively impaired;physical impairment -- Discharge Disposition -- still a patient -- Current Health Outpatient/Agency/Support Group Needs -- half-way (specify) -- Anticipated Changes Related to Illness none -- -- Living Environment Transportation Available -- car (caregiver from half-way) -- Activity/Self Care Review of Systems Equipment [...] outcome * Plan of Care - Ximena Lou, RN - 10/26/2017 3:13 PM EDT Problem: [...] in wheelchair for about an hour with clinical care coordinator. Remains incontinent. residential caregiver at bedside.Will continue to monitor. PLAN MOVING [...] History: Procedure Laterality Date ??? PRO OPEN COREMAKING SUPERVISOR FIX ACETABULAR FX Left 09/04/2017 @OPEN TREATMENT, ACETABULAR FX (WRVU 25.41) performed by Amy Lance MD at [facility] OR Patient has following SCHEDULED medications: [...] care. Outcome: Ongoing (Interventions Implemented as Appropriate) 10/24/17124 Skin Integrity Impairment, Risk/Actual (Adult) Skin Integrity/Wound [...] self care tasks Anticipated Discharge Disposition: (P) [facility] Pager: [phone] ZULMA Vargas 10/27/2017 Occupational Therapy Rehabilitation Department [...] Scale) Pain Level 5 Bed Mobility Assessment/Treatment Yewrni-dj-Xzr [place] (Bed Mobility) verbal cues required (extended time) Transfer Assessment/Treatment [place] (Sit-Stand Transfers) contact guard assist [place] (Stand-Sit Transfers) contact guard assist Ske-Lkpsx-Jrn Assistive Device (Transfers) rolling walker Bed-Chair [place] (Transfers) minimum assist (75% patient effort);verbal cues required Wheelchair Training/Management Transfer Type (Wheelchair) stand pivot transfer Propulsion Training (Wheelchair) forward propulsion Distance Propelled in Feet (Wheelchair) 50ft Lower Body Dressing Assessment/Training Position (LB Dressing) sitting (supine in bed) Ozark Level (LB Dressing) conditional independence Impairments (LB [...] Therapy Frequency 2-4 times/wk Anticipated Discharge Disposition [facility] * Med Student Progress Note - Bonnie Velásquez - 10/25/2017 7:42 AM EDT Hospital Medicine Attending Daily Progress [...] Care: FULL CODE Team Pager(MD Coverage 27/01): #[phone] PCP: NAKIA Cifuentes [phone] Bonnie Velásquez 10/25/2017 Pager [phone] * Plan of Care - Ren Walters [...] all self care tasks Anticipated Discharge Disposition: [facility] Pager: [phone] ZULMA Vargas 10/25/2017 Occupational Therapy Rehabilitation Department 10/24/17 6750 Rehab Evaluation Document Type therapy note (daily [...] time;needs cueing;needs increased time;needs repetition Transfer Assessment/Treatment [place] (Sit-Stand Transfers) contact guard assist [place] (Stand-Sit Transfers) contact guard assist Comment (Transfers) pt did well maintaining his precautions Bed-Chair [place] (Transfers) minimum assist (75% patient effort) Mol-Uoong-Ufb Assistive Device (Transfers) rolling walker Chair-Bed [place] (Transfers) minimum assist (75% patient effort) Lower Body Dressing Assessment/Training Position (LB Dressing) sitting Ozark Level (LB Dressing) set up required Impairments (LB Dressing) vision impaired Comment (LB Dressing) to don pants Toileting Assessment/Training Position (Toileting) sitting (EOB) Ozark Level (Toileting) set up required Comment (Toileting) [...] Med Student Progress Note - Bonnie Velásquez [place] - 10/24/2017 7:49 AM EDT Hospital Medicine [...] Care: FULL CODE Team Pager(MD Coverage 27/01): #[phone] PCP: NAKIA Cifuentes [phone] Bonnie Velásquez 10/24/2017 Pager [phone] * Plan of Care - Lenore Yates [...] Bonnie Velásquez - 10/23/2017 7:32 AM EDT [facility] Medicine Attending Daily Progress Note Admit Date: [...] Care: FULL CODE Team Pager( Coverage 27/01): #[phone] PCP: NAKIA Cifuentes [phone] Bonnie Velásquez 10/23/2017 Pager [phone] * Plan of Care - Lenore Yates [...] Medicated with dilaudid 4mg powith good effect. bottling attendant in room with patient this shift. 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, cognitively impaired,immobility Assistance [level of assistance required for transfers and ambulation]: Dependent Supervision [direct monitoring required during toileting and ADLs]: Dependent Surveillance [continuous indirect monitoring]: Jeet, russell morris in reach, purposeful rounding, product safety technical assistant Patient-specific fall prevention interventions for sensory deficits provided, if applicable: Yes CPG GOAL OUTCOME EVALUATION: * Plan of Care - Louis Doran PTA - 10/22/2017 11:10 AM EDT Physical Therapy [...] pivot transfer 1-2 assist Anticipated Discharge Disposition: [facility] (could go to handicap accesible half-way with assistance) LOUIS DORAN PTA Pager: [phone] Inpatient Physical Therapy 10/22/17 1114 Rehab Evaluation Document Type therapy note (daily [...] Living Environment Comment Pt lives in a half-way with 3 other roomates. The product owner of the half-way reports that they have a caregiver there [...] a good distraction from patient. At the half-way he tends to wear jeans with no shirt as he tries to rip them off. He is able to communicate intermittently with verbal words. the caregivers help shower anddress him daily. Pain Scale/Rating Pain Assessment Scale Word (verbal rating pain scale) Pain Level (pt reported no pain when asked) Bed Mobility Assessment/Treatment Aabipl-tx-Zwc Oz[place] (Bed Mobility) minimum assist (75% patient effort) Comment (Bed Mobility) Able to sit edge of bed with supervision Transfer Assessment/Treatment Bed-Chair [place] (Transfers) maximum assist (25% patient effort) Anx-Hjefs-Prc Assistive Device (Transfers) rolling walker [place] (Sit-Stand Transfers) contact guard assist;minimum assist (75% patient effort) [place] (Stand-Sit Transfers) contact guard assist Nma-Lxwhs-Hzk Assistive Device (Transfers) (// bars) [place] (Toilet Transfers) maximum assist (25% patient effort) [...] unsteady, sits early at times Gait Assessment/Treatment [place] (Gait) minimum assist (75% patient effort) Assistive [...] all bed mobility activities Bed Mobility Goal, Ozark Level moderate assist (50% patient effort) Bed Mobility Goal, Outcome Achieved goal ongoing Gait Training Goal Gait Training Goal, Date Established 09/09/17 Gait Training Goal, Time to Achieve by discharge Gait Training Goal, [place]ark Level minimum assist (75% patient effort) Gait Training Goal, Assist Device walker, rolling Gait Training Goal, Distance to Achieve 15 ft Gait Training Goal, Outcome goal ongoing Transfer Training Goal Transfer Training Goal, Date Established 09/09/17 Transfer Training Goal, Time to Achieve by discharge Transfer Training Goal, Activity Type pey-bt-cufwy/uddnn-tt-vtp;yld-qf-fgrzr/mwwlz-wn-xsk Transfer Train Goal, Ozark Level minimum assist (75% patient effort) Transfer Training Goal, Assist Device walker, rolling Transfer Training Goal, Outcome goal ongoing Physical Therapy Goal PT Goal, Date Established 09/09/17 PT Goal, Time to Achieve by discharge PT Goal, Activity Type Pt will propel self in w/c household distances PT Goal, Ozark Level set up required;supervision required PT Goal, Outcome goal ongoing Clinical Impression Therapy Frequency 2-4 times/wk Anticipated Discharge Disposition [facility]could go to handicap accesible half-way with assistance) * Med Student Progress Note - Bonnie Velásquez - 10/22/2017 7:21 AM EDT Hospital Medicine Attending [...] Care: FULL CODE Team Pager( Coverage 27/01): #[phone] PCP: NAKAI Cifuentes [phone] Bonnie Velásquez 10/22/2017 Pager [phone] * Plan of Care - Elsy Mei [...] Surveillance [continuous indirect monitoring]: Jeet purposeful rounding, NKE, sitter Patient-specific fall prevention [...] Outcome: Ongoing (Interventions Implemented as Appropriate) 10/21/17 0830 10/21/17 210 Restraint Interventions Safety Promotion/Fall Prevention -- activity [...] Of Care Needs -- -- adult foster care/half-way Current Discharge Risk -- cognitively impaired;physical impairment -- Discharge Disposition -- still a patient -- Current Health Outpatient/Agency/Support Group Needs -- half-way (specify) -- Anticipated Changes Related to Illness none -- -- Living Environment Transportation Available -- car (caregiver from half-way) -- Activity/Self Care Review of Systems Equipment [...] self care tasks Anticipated Discharge Disposition: (P) [facility] Pager: [phone] ZULMA Vargas 10/21/2017 Occupational Therapy Rehabilitation Department [...] Scale) Pain Level 0 Bed Mobility Assessment/Treatment Tegdbg-xp-Twt [place] (Bed Mobility) minimum assist (75% patient effort);verbal cues required Jmg-vd-Clbjkn [place] (Bed Mobility) minimum assist (75% patient effort);verbal cues required Comment (Bed Mobility) difficult arousing pt Clinical Impression Criteria for Skilled Therapeutic Interventions Met yes;treatment indicated Rehab Potential fair, will monitor progress closely Therapy Frequency 2-4 times/wk Anticipated Discharge Disposition [facility] * Plan of Care - Lenore Yates RN - 10/21/2017 3:29 PM EDT Problem: Patient Care Overview Goal: Plan of Care Review Outcome: Ongoing (Interventions Implemented as Appropriate) 10/21/17 1524 Coping/Psychosocial Plan Of Care Reviewed With [...] EVALUATION: * Consult Note - Kris Gilbert, DMD - 10/21/2017 2:32 PM EDT Dental consult [...] consult regarding this case. Kris Gilbert DMD [phone] * Med Student Progress Note - Bonnie [...] dental input. #Agitation #Sleep Wake Disturbance Pain 2/2 hip [...] Care: FULL CODE Team Pager(MD Coverage 27/01): #[phone] PCP: NAKIA Cifuentes [phone] Bonnie Velásquez 10/21/2017 Pager [phone] * Plan of Care - Elsy Mei [...] were administered with less than adequate effect; MD notified. Pt incontinent for the remainder of [...] Of Care Needs -- -- adult foster care/half-way Current Discharge Risk -- cognitively impaired;physical impairment -- Discharge Disposition -- still a patient -- Current Health Outpatient/Agency/Support Group Needs -- half-way (specify) -- Anticipated Changes Related to Illness none -- -- Living Environment Transportation Available -- car (caregiver from half-way) -- Activity/Self Care Review of Systems Equipment [...] Med Student Progress Note - Bonnie Velásquez [place] - 10/20/2017 9:09 AM EDT Hospital Medicine Attending Daily Progress Note Admit Date: 09/02/2017 Hospital Day 48 days Active Hospital Problems Diagnosis ??? S/P ORIF left acetabulum fracture 09/04/2017 Dr. Lance ??? Postoperative anemia due to acute blood loss ??? Diabetes insipidus ??? Adrenal insufficiency ??? Panhypopituitarism ??? Seizure disorder ??? Hypothyroidism Resolved Hospital Problems Diagnosis Date Resolved No resolved problems to display. [facility] Active Non-Hospital Problems Diagnosis ??? Insomnia ??? [...] goal 110 #Left hip fracture s/p repair 3/1 with orthopedics Patient tolerating stand pivot to wheelchair, but requiring more assistance than before,likely somedeconditioning from extended hospital but also fatigue due to sleep-wake dysfunction. -vit D3 1000 units daily -encourage ambulation #Cracked Tooth -CT head wo contrast with anesthesia today -awaiting maxillofacial surgery input #Agitation #Sleep Wake Disturbance Pain 2/ hip fracture likely contributing significantly to agitation. [...] Care: FULL CODE Team Pager(MD Coverage 27/01): #[phone] PCP: NAKIA Cifuentes [phone] Bonnie Velásquez 10/20/2017 Pager [phone] * Plan of Care - Dinorah Tate [...] Implemented as Appropriate) 10/19/17 0608 10/19/17 0830 10/19/17 2100 Restraint Interventions Safety Promotion/Fall Prevention -- [...] Ongoing (Interventions Implemented as Appropriate) 10/19/17 2100 10/20/17 0200 Coping Strategies Supportive Measures active listening utilized -- Safety Interventions Isolation Precautions -- standard precautions maintained Infection Prevention -- rest/sleep promoted Problem: Skin Integrity Impairment, Risk/Actual (Adult) Goal: Skin Integrity/Wound Healing Patient will demonstrate the desired outcomes by discharge/transition of care. Outcome: Ongoing (Interventions Implemented as Appropriate) 10/19/17 06 Skin Integrity Impairment, Risk/Actual (Adult) Skin Integrity/Wound Healing making progress toward outcome * Plan of Care - Judie Thrasher RN - 10/19/2017 4:09 PM EDT Problem: Patient Care Overview Goal: Plan of Care Review Outcome: Ongoing (Interventions Implemented as Appropriate) 10/19/17 0608 10/19/17 0830 Coping/Psychosocial Plan Of Care Reviewed With [...] Of Care Needs -- -- adult foster care/half-way Current Discharge Risk -- cognitively impaired;physical impairment -- Discharge Disposition -- still a patient -- Current Health Outpatient/Agency/Support Group Needs -- half-way (specify) -- Anticipated Changes Related to Illness none -- -- Living Environment Transportation Available -- car (caregiver from half-way) -- Activity/Self Care Review of Systems Equipment [...] Appropriate) 10/10/17 1735 Interdisciplinary Rounds/Family Conf Participants family;nursing;patient;physician;casework supervisor (caregiver) Problem: Skin Integrity Impairment, Risk/Actual (Adult) [...] Of Care Needs -- -- adult foster care/half-way Current Discharge Risk -- cognitively impaired;physical impairment -- Discharge Disposition -- still a patient -- Current Health Outpatient/Agency/Support Group Needs -- half-way (specify) -- Anticipated Changes Related to Illness none -- -- Living Environment Transportation Available -- car (caregiver from half-way) -- Activity/Self Care Review of Systems Equipment [...] on 3200 ml fluid restriction. Patient had clinical care coordinator [id number] today. Patients pain treated with scheduled and [...] Care: FULL CODE Team Pager( Coverage 27/01): #[phone] PCP: NAKIA Cifuentes [phone] Bonnie Velásquez 10/18/2017 Pager [phone] * Plan of Care - Alanna Paulino [...] Med Student Progress Note - Bonnie Velásquez [place] - 10/17/2017 7:22 AM EDT Hospital Medicine [...] surgery input #Agitation #Sleep Wake Disturbance Pain / hip fracture likely contributing significantly to agitation. [...] Care: FULL CODE Team Pager( Coverage 27/01): #[phone] PCP: NAKIA Cifuentes [phone] Bonnie Velásquez 10/17/2017 Pager [phone] * Plan of Care - Landy Benitez [...] Care: FULL CODE Team Pager(MD Coverage 27/01): #[phone] PCP: NAKIA Cifuentes [phone] Bonnie Velásquez 10/16/2017 Pager [phone] * Plan of Care - Landy Benitez, RN - 10/16/2017 4:02 AM EDT Problem: [...] Med Student Progress Note - Bonnie Velásquez [place] - 10/15/2017 8:40 AM EDT Hospital Medicine [...] Care: FULL CODE Team Pager(MD Coverage 27/01): #[phone] PCP: NAKIA Cifuentes [phone] Bonnie Velásquez 10/15/2017 Pager [phone] * Plan of Care - Lori Ordaz [...] Care: FULL CODE Team Pager( Coverage 27/01): #[phone] PCP: NAKIA Cifuentes [phone] Bonnie Velásquez 10/14/2017 Pager [phone] * Plan of Care - Lori Ordaz [...] self care tasks Anticipated Discharge Disposition: (P) [facility] Pager: [phone] ZULMA Vargas 10/14/2017 Occupational Therapy Rehabilitation Department [...] Assessment/Treatment Assistive Device (Bed Mobility) bed rails Rssenu-ug-Xkr [place] (Bed Mobility) minimum assist (75% patient effort);verbal cues required Ckx-dg-Kjbtjr [place] (Bed Mobility) supervision required;verbal cues required Impairments (Bed Mobility) pain;flexibility decreased Comment (Bed Mobility) extended time required Transfer Assessment/Treatment [place] (Sit-Stand Transfers) moderate assist (50% patient effort) [place] (Stand-Sit Transfers) moderate assist (50% patient effort) Impairments (Transfers) flexibility decreased;strength decreased Comment (Transfers) pt able to show which leg is non-weight bearing but unable to maintain it today Bed-Chair [place] (Transfers) maximum assist (25% patient effort);verbal cues required Efj-Pqcpg-Jmm Assistive Device (Transfers) rolling walker Chair-Bed [place] (Transfers) maximum assist (25% patient effort);verbal cues required Gait Assessment/Treatment [place] (Gait) minimum assist (75% patient effort) Distance in Feet (Gait) 3ft Maintain Weight Bearing Status (Gait) cues to maintain weight bearing status;assist to maintain weight bearing status;unable to maintain weight bearing status Lower Body Dressing Assessment/Training Position (LB Dressing) (supine in bed) [place] Level (LB Dressing) minimum assist (75% patient effort) Impairments (LB Dressing) vision impaired;flexibility decreased Comment (LB Dressing) to don pants, min A to thread L feet in Grooming Assessment/Training Position (Grooming) sitting (in WC) [place] Level (Grooming) set up required;verbal cues required [...] Therapy Frequency 2-4 times/wk Anticipated Discharge Disposition [facility] * Plan of Care - Echo Mccullough RN - 10/13/2017 2:44 PM EDT [...] -- Current Health Outpatient/Agency/Support Group Needs -- half-way (specify) -- Anticipated Changes Related to Illness none -- -- Living Environment Transportation Available -- car (caregiver from half-way) -- Activity/Self Care Review of Systems Equipment Currently Used at Home -- none -- 10/03/17 1654 Discharge Needs Assessment Concerns To Be Addressed -- Readmission Within The Last 30 Days -- Equipment Needed After Discharge -- Discharge Facility/Level Of Care Needs adult foster care/half-way Current Discharge Risk -- Discharge Disposition -- Current Health Outpatient/Agency/Support Group Needs -- Anticipated Changes Related to Illness -- Living Environment Transportation Available -- Activity/Self Care Review of Systems Equipment Currently Used at Home -- Goal: Interdisciplinary Rounds/Family Conf 10/10/17 1927 Interdisciplinary Rounds/Family Conf Participants family;nursing;patient;physician;casework supervisor (caregiver) Problem: Skin Integrity Impairment, Risk/Actual (Adult) [...] -- Current Health Outpatient/Agency/Support Group Needs -- half-way (specify) -- Anticipated Changes Related to Illness none -- -- Living Environment Transportation Available -- car (caregiver from half-way) -- Activity/Self Care Review of Systems Equipment Currently Used at Home -- none -- 10/03/17 1654 Discharge Needs Assessment Concerns To Be Addressed -- Readmission Within The Last 30 Days -- Equipment Needed After Discharge -- Discharge Facility/Level Of Care Needs adult foster care/half-way Current Discharge Risk -- Discharge Disposition -- Current Health Outpatient/Agency/Support Group Needs -- Anticipated Changes Related to Illness -- Living Environment Transportation Available -- Activity/Self Care Review of Systems Equipment Currently Used at Home -- Goal: Interdisciplinary Rounds/Family Conf 10/10/17 1735 Interdisciplinary Rounds/Family Conf Participants family;nursing;patient;physician;casework supervisor (caregiver) Problem: Skin Integrity Impairment, Risk/Actual (Adult) [...] Outcome: Ongoing (Interventions Implemented as Appropriate) 10/08/17180410/08/17 184 Coping/Psychosocial Plan Of Care Reviewed With -- [...] Review Outcome: Ongoing (Interventions Implemented as Appropriate) 10/07/17 17010/07/172 Coping/Psychosocial Plan Of Care Reviewed With -- [...] 1-2A with ADL's Surveillance [continuous indirect monitoring]: Lennoxo, Purposeful Rounding, NKE Patient-specific fall prevention interventions [...] alarm on to help maintain patient safety. residential caregiver at bedside throughout the shift. Will continue [...] -- Current Health Outpatient/Agency/Support Group Needs -- half-way (specify) -- Anticipated Changes Related to Illness none -- -- Living Environment Transportation Available -- car (caregiver from half-way) -- Activity/Self Care Review of Systems Equipment Currently Used at Home -- none -- 10/03/17 1654 Discharge Needs Assessment Concerns To Be Addressed -- Readmission Within The Last 30 Days -- Equipment Needed After Discharge -- Discharge Facility/Level Of Care Needs adult foster care/half-way Current Discharge Risk -- Discharge Disposition -- [...] Control Outcome: Ongoing (Interventions Implemented as Appropriate) 10/03/17899 Safety Interventions Isolation Precautions standard precautions maintained [...] -- Current Health Outpatient/Agency/Support Group Needs -- half-way (specify) -- Anticipated Changes Related to Illness none -- -- Living Environment Transportation Available -- car (caregiver from half-way) -- Activity/Self Care Review of Systems Equipment Currently Used at Home -- none -- 10/03/171653 Discharge Needs Assessment Concerns To Be Addressed -- Readmission Within The Last 30 Days -- Equipment Needed After Discharge -- Discharge Facility/Level Of Care Needs adult foster care/half-way Current Discharge Risk -- Discharge Disposition -- Current Health Outpatient/Agency/Support Group Needs -- Anticipated Changes Related to Illness -- Living Environment Transportation Available -- Activity/Self Care Review of Systems Equipment Currently Used at Home -- Goal: Interdisciplinary Rounds/Family Conf Outcome: Ongoing (Interventions Implemented as Appropriate) 10/03/174 Interdisciplinary Rounds/Family Conf Participants patient;nursing;family;physical therapy;occupational therapy [...] Overview Goal: Plan of Care Review 10/03/17 0510/03/17899 Coping/Psychosocial Plan Of Care Reviewed With -- patient;caregiver Plan of Care Review Progress no change -- Goal: Fall Prevention-Safe Patient Handling 10/03/1789910/03/172147 Restraint Interventions Safety Promotion/Fall Prevention activity supervised;fall [...] Fall Risk -- High Goal: Infection Control 10/03/17899 Safety Interventions Isolation Precautions standard precautions maintained [...] -- Current Health Outpatient/Agency/Support Group Needs -- half-way (specify) -- Anticipated Changes Related to Illness none -- -- Living Environment Transportation Available -- car (caregiver from half-way) -- Activity/Self Care Review of Systems Equipment Currently Used at Home -- none -- 10/03/17 1654 Discharge Needs Assessment Concerns To Be Addressed -- Readmission Within The Last 30 Days -- Equipment Needed After Discharge -- Discharge Facility/Level Of Care Needs adult foster care/half-way Current Discharge Risk -- Discharge Disposition -- [...] Implemented as Appropriate) 09/07/17 0504 09/18/17 1253 03/26/18 1939 Individualization Patient Specific Preferences -- -- [...] Handling Outcome: Ongoing (Interventions Implemented as Appropriate) 10/03/1789910/03/172147 Restraint Interventions Safety Promotion/Fall Prevention activity supervised;fall [...] Control Outcome: Ongoing (Interventions Implemented as Appropriate) 10/03/17899 Safety Interventions Isolation Precautions standard precautions maintained [...] -- Current Health Outpatient/Agency/Support Group Needs -- half-way (specify) -- Anticipated Changes Related to Illness none -- -- Living Environment Transportation Available -- car (caregiver from half-way) -- Activity/Self Care Review of Systems Equipment Currently Used at Home -- none -- 10/03/17 1654 Discharge Needs Assessment Concerns To Be Addressed -- Readmission Within The Last 30 Days -- Equipment Needed After Discharge -- Discharge Facility/Level Of Care Needs adult foster care/half-way Current Discharge Risk -- Discharge Disposition -- [...] -- Current Health Outpatient/Agency/Support Group Needs -- half-way (specify) -- Anticipated Changes Related to Illness none -- -- Living Environment Transportation Available -- car (caregiver from half-way) -- Activity/Self Care Review of Systems Equipment Currently Used at Home -- none -- 10/03/17 1654 Discharge Needs Assessment Concerns To Be Addressed -- Readmission Within The Last 30 Days -- Equipment Needed After Discharge -- Discharge Facility/Level Of Care Needs adult foster care/half-way Current Discharge Risk -- Discharge Disposition -- [...] self care tasks Anticipated Discharge Disposition: (P) [facility] Pager: [phone] ZULMA Vargas 10/04/2017 Occupational Therapy Rehabilitation Department [...] Status left lower extremity Bed Mobility Assessment/Treatment Fep-gn-Ssnbqj [place] (Bed Mobility) minimum assist (75% patient effort);verbal cues required Impairments (Bed Mobility) pain;ROM (range of motion) decreased Transfer Assessment/Treatment [place] (Sit-Stand Transfers) moderate assist (50% patient effort);verbal cues required Comment (Transfers) Pt able to maintain WB precautions Aee-Ehhcm-Awj Assistive Device (Transfers) rolling walker Chair-Bed [place] (Transfers) moderate assist (50% patient effort);verbal cues [...] Therapy Frequency 2-4 times/wk Anticipated Discharge Disposition [facility] * Plan of Care - [place] [...] -- Current Health Outpatient/Agency/Support Group Needs -- half-way (specify) -- Anticipated Changes Related to Illness none -- -- Living Environment Transportation Available -- car (caregiver from half-way) -- Activity/Self Care Review of Systems Equipment [...] Surveillance [continuous indirect monitoring]: Caregiver at bedside, Jeet, Purposeful Rounding, Bedside Report Patient-specific fall prevention interventions for sensory deficits provided, if applicable: [X] No CPG GOAL OUTCOME EVALUATION: Goal: Individualization & Mutuality Outcome: Ongoing (Interventions Implemented as Appropriate) 09/18/17 1253 Individualization Patient Specific Goals pain control, mobilize, D/C planning Goal: Fall Prevention-Safe Patient Handling Outcome: Ongoing (Interventions Implemented as Appropriate) 09/25/17 2116 10/02/17 0918 Restraint Interventions Safety Promotion/Fall Prevention -- activity [...] Ongoing (Interventions Implemented as Appropriate) 10/02/17 0918 Safety Interventions Isolation Precautions standard precautions maintained [...] -- Current Health Outpatient/Agency/Support Group Needs -- half-way (specify) -- Anticipated Changes Related to Illness none -- -- Living Environment Transportation Available -- car (caregiver from half-way) -- Activity/Self Care Review of Systems Equipment [...] Outcome: Ongoing (Interventions Implemented as Appropriate) 10/01/17 18110/01/172029 Coping/Psychosocial Plan Of Care Reviewed With -- [...] (Interventions Implemented as Appropriate) 10/01/17 0900 10/01/17 1816 Coping/Psychosocial Plan Of Care Reviewed With patient;caregiver [...] Ongoing (Interventions Implemented as Appropriate) 09/18/17 1253 09/29/17 1939 Individualization Patient Specific Preferences -- apple juice with meds Patient Specific Goals pain control, mobilize, D/C planning -- Patient Specific Interventions frequent incontinence care -- Goal: Fall Prevention-Safe Patient Handling Outcome: Ongoing (Interventions Implemented as Appropriate) 09/25/17211509/30/17 2300 10/01/17 0900 Restraint Interventions Safety Promotion/Fall Prevention -- [...] as Appropriate) 09/08/17 0403 09/18/17 1250 09/29/17 193 Discharge Needs Assessment Concerns To Be Addressed -- -- no discharge needs identified Readmission Within The Last 30 Days -- -- no previous admission in last 30 days Equipment Needed After Discharge -- other (see comments) (TBD) -- Current Health Outpatient/Agency/Support Group Needs -- half-way (specify) -- Anticipated Changes Related to Illness [...] Outcome: Ongoing (Interventions Implemented as Appropriate) 09/29/17193809/30/17 2300 Coping/Psychosocial Plan Of Care Reviewed With [...] Outcome: Ongoing (Interventions Implemented as Appropriate) 09/25/17211509/30/17 2300 Restraint Interventions Safety Promotion/Fall Prevention -- activity [...] * Plan of Care - Kaylin Adames - 09/30/2017 7:43 PM EDT Problem: Patient Care [...] ongoing Goal: Individualization & Mutuality 09/18/17 1253 09/29/17 193 Individualization Patient Specific Preferences -- apple juice with meds Patient Specific Goals pain control, mobilize, D/C planning -- Patient Specific Interventions frequent incontinence care -- Goal: Fall Prevention-Safe Patient Handling Outcome: Ongoing (Interventions Implemented as Appropriate) 09/25/17211509/29/17 2300 09/30/17 0945 Restraint Interventions Safety Promotion/Fall [...] -- Current Health Outpatient/Agency/Support Group Needs -- half-way (specify) -- Anticipated Changes Related to Illness [...] assist and FWW [facility] PTA Pager: [phone] Inpatient Physical Therapy 09/30/17 1110 Rehab Evaluation Document Type therapy note [...] Rating Scale) Pain Level 2 Transfer Assessment/Treatment [place] (Sit-Stand Transfers) moderate assist (50% patient effort);2 person assist required [place] (Stand-Sit Transfers) moderate assist (50% patient effort);2 person assist required Mlv-Mvkxy-Tph Assistive Device (Transfers) rolling walker [place] (Toilet Transfers) moderate assist (50% patient effort);2 person assist required Assistive Device (Toilet Transfers) bedside commode;rolling walker Maintain Weight Bearing Status (Transfers) cues to maintain weight bearing status Safety Issues (Transfers) balance decreased during turns;sequencing ability decreased Impairments (Transfers) balance impaired;postural control impaired;strength decreased;vision impaired Comment (Transfers) stand step transfer to and from commode and w/c, frequent cues provided Gait Assessment/Treatment [place] (Gait) minimum assist (75% patient effort);2 person [...] all bed mobility activities Bed Mobility Goal, [place] Level moderate assist (50% patient effort) Bed Mobility Goal, Outcome Achieved goal ongoing Gait Training Goal Gait Training Goal, Date Established 09/09/17 Gait Training Goal, Time to Achieve by discharge Gait Training Goal, [place] Level minimum assist (75% patient effort) Gait Training Goal, Assist Device walker, rolling Gait Training Goal, Distance to Achieve 15 ft Gait Training Goal, Outcome goal ongoing Transfer Training Goal Transfer Training Goal, Date Established 09/09/17 Transfer Training Goal, Time to Achieve by discharge Transfer Training Goal, Activity Type ppn-rh-krqbk/sgtpd-ox-cmj;hfk-vu-nklvn/xmhjc-yq-zes Transfer Train Goal, [place] Level minimum assist (75% patient effort) Transfer Training Goal, Assist Device walker, rolling Transfer Training Goal, Outcome goal ongoing Physical Therapy Goal PT Goal, Date Established 09/09/17 PT Goal, Time to Achieve by discharge PT Goal, Activity Type Pt will propel self in w/c household distances PT Goal, [place] Level set up required;supervision required PT Goal, Outcome goal ongoing Clinical Impression Therapy Frequency 2-4 times/wk Anticipated Equipment Needs at Discharge front wheeled walker Anticipated Discharge Disposition [facility] (could go to handicap accesible half-way with assistance) * Plan of Care - Skyler Aviles RN - 09/30/2017 4:07 AM EDT Problem: Patient Care Overview Goal: Plan of Care Review 09/29/17 1939 09/29/17 0003 Coping/Psychosocial Plan Of Care Reviewed With -- [...] Goal: Individualization & Mutuality 09/07/17 0504 09/18/17 12509/29/171938 Individualization Patient Specific Preferences -- -- apple [...] -- Current Health Outpatient/Agency/Support Group Needs -- half-way (specify) -- Anticipated Changes Related to Illness none -- -- Living Environment Transportation Available -- car (caregiver from half-way) -- Activity/Self Care Review of Systems Equipment [...] with meds Goal: Fall Prevention-Safe Patient Handling 09/25/176 09/29/17 1039 Restraint Interventions Safety Promotion/Fall Prevention -- fall prevention program maintained;safety round/check completed Activity Activity Type -- activity adjusted per tolerance Activity Assistance Provided -- assistance, 2 people Assistive Device Utilized -- wheelchair Positioning Body Position -- independent Daily Care Interventions Self-Care Promotion independence encouraged;BADL personal objects within reach;BADL personal routines maintained;safe use of adaptive equipment encouraged -- Angelic Fall Risk History of Falling [...] all self care tasks Anticipated Discharge Disposition: [facility] Pager: [phone] ZULMA Vargas 09/30/2017 Occupational Therapy Rehabilitation Department [...] Bearing Status left lower extremity Transfer Assessment/Treatment [place] (Sit-Stand Transfers) moderate assist (50% patient effort);2 person assist required [place] (Stand-Sit Transfers) moderate assist (50% patient effort);2 person assist required Chair-Bed [place] (Transfers) maximum assist (25% patient effort);2 person assist required Grooming Assessment/Training Position (Grooming) sitting (in chair at sink) [place] Level (Grooming) set up required;verbal cues required [...] OUTCOME EVALUATION: Goal: Fall Prevention-Safe Patient Handling 09/25/176 09/28/17 1600 09/29/17 0200 Restraint Interventions Safety [...] -- Current Health Outpatient/Agency/Support Group Needs -- half-way (specify) -- Anticipated Changes Related to Illness none -- -- Living Environment Transportation Available -- car (caregiver from half-way) -- Activity/Self Care Review of Systems Equipment [...] [place] Fall Risk -- -- High 09/27/17 2255 Restraint Interventions Safety Promotion/Fall Prevention activity supervised [...] Risk -- Goal: Infection Control 09/27/17 0720 09/27/175 Safety Interventions Isolation Precautions standard precautions maintained [...] -- Current Health Outpatient/Agency/Support Group Needs -- half-way (specify) -- Anticipated Changes Related to Illness none -- -- Living Environment Transportation Available -- car (caregiver from half-way) -- Activity/Self Care Review of Systems Equipment [...] -- Current Health Outpatient/Agency/Support Group Needs -- half-way (specify) -- Anticipated Changes Related to Illness none -- -- Living Environment Transportation Available -- car (caregiver from half-way) -- Activity/Self Care Review of Systems Equipment [...] to good effect. Incontinence care provided PRN. Lebron gonzalez, aware. Will continue to monitor and help [...] Control Outcome: Ongoing (Interventions Implemented as Appropriate) 09/25/17 211 Safety Interventions Isolation Precautions standard precautions maintained [...] -- Current Health Outpatient/Agency/Support Group Needs -- half-way (specify) -- Anticipated Changes Related to Illness none -- -- Living Environment Transportation Available -- car (caregiver from half-way) -- Activity/Self Care Review of Systems Equipment [...] * Plan of Care - Louis Doran PRESSURISED CONTAINER FILLER - 09/25/2017 12:10 PM EDT Physical Therapy [...] and 2 assist [facility] PTA Pager: [phone] Inpatient Physical Therapy 09/25/17 1212 Rehab Evaluation Document Type therapy note (daily [...] Assessment/Treatment Assistive Device (Bed Mobility) bed rails Hjbscu-gz-Gdb [place] (Bed Mobility) moderate assist (50% patient effort);2 person assist required Comment (Bed Mobility) Pt asleep initially, difficult to arouse, once assisted into seated positionpt able to hold himself up and became slightly more responsive Transfer Assessment/Treatment Bed-Chair [place] (Transfers) maximum assist (25% patient effort);2 person assist required Yik-Vppzu-Ljy Assistive Device (Transfers) rolling walker [place] (Sit-Stand Transfers) moderate assist (50% patient effort);2 person assist required [place] (Stand-Sit Transfers) moderate assist (50% patient effort);2 person assist required Qwb-Cfafg-Nxl Assistive Device (Transfers) rolling walker Maintain Weight Bearing Status (Transfers) assist to maintain weight bearing status Impairments (Transfers) balance impaired;pain;strength decreased;vision impaired Comment (Transfers) Stand step transfer from bed to recliner chair, some weight bearing on L LE, ptpicked up walker once. Subsequent stands from recliner chair, pt able to maintain initial NWB to L LE Gait Assessment/Treatment [place] (Gait) moderate assist (50% patient effort);2 person [...] all bed mobility activities Bed Mobility Goal, [place] Level moderate assist (50% patient effort) Bed Mobility Goal, Outcome Achieved goal ongoing Gait Training Goal Gait Training Goal, Date Established 09/09/17 Gait Training Goal, Time to Achieve by discharge Gait Training Goal, Ozark Level minimum assist (75% patient effort) Gait Training Goal, Assist Device walker, rolling Gait Training Goal, Distance to Achieve 15 ft Gait Training Goal, Outcome goal ongoing Transfer Training Goal Transfer Training Goal, Date Established 09/09/17 Transfer Training Goal, Time to Achieve by discharge Transfer Training Goal, Activity Type xhd-zp-kvudn/rzqkd-on-phh;csn-ox-xcgul/erkdl-cn-hhm Transfer Train Goal, Ozark Level minimum assist (75% patient effort) Transfer Training Goal, Assist Device walker, rolling Transfer Training Goal, Outcome goal ongoing Physical Therapy Goal PT Goal, Date Established 09/09/17 PT Goal, Time to Achieve by discharge PT Goal, Activity Type Pt will propel self in w/c household distances PT Goal, Ozark Level set up required;supervision required PT Goal, Outcome goal ongoing Clinical Impression Therapy Frequency 2-4 times/wk Anticipated Equipment Needs at Discharge front wheeled walker Anticipated Discharge Disposition [facility] (could go to handicap accesible half-way with assistance) * Plan of Care - [...] self care tasks Anticipated Discharge Disposition: (P) [facility] Pager: [phone] ZULMA Vargas 09/24/2017 Occupational Therapy Rehabilitation Department [...] Assessment/Treatment Assistive Device (Bed Mobility) bed rails Jdhbdf-fc-Jzv Ozark (Bed Mobility) verbal cues required;contact guard assist Xjf-fx-Qlrlzs Ozark (Bed Mobility) verbal cues required;minimum assist (75% [...] Therapy Frequency 2-4 times/wk Anticipated Discharge Disposition [facility] * Plan of Care - Laura [...] History: Procedure Laterality Date ??? PRO OPEN COREMAKING SUPERVISOR FIX ACETABULAR FX Left 09/04/2017 @OPEN TREATMENT, ACETABULAR FX (WRVU 25.41) performed by Amy Lance MD at [facility] OR Patient has following SCHEDULED medications: [...] w/ PRN and scheduled medications, see MAR. Carisa removed by ortho this AM, steri strips [...] & Mutuality 09/05/17 0607 09/07/17 0504 09/18/17 125 Individualization Patient Specific Preferences Able to answer [...] -- Goal: Fall Prevention-Safe Patient Handling 09/19/17 0809/21/1790709/21/172199 Restraint Interventions Safety Promotion/Fall Prevention -- -- [...] Risk -- -- High Goal: Infection Control 09/21/1790709/21/172199 Safety Interventions Isolation Precautions standard precautions maintained -- Infection Prevention environmental surveillance performed;rest/sleep promoted;single patient room provided -- Coping Strategies Supportive Measures -- active listening utilized Goal: Discharge Needs Assessment 09/08/17 0403 09/18/17 1250 09/19/17 09 Discharge Needs Assessment Concerns To Be Addressed -- -- no discharge needs identified Readmission Within The Last 30 Days -- -- no previous admission in last 30 days Equipment Needed After Discharge -- other (see comments) (TBD) -- Current Discharge Risk -- cognitively impaired;physical impairment -- Discharge Disposition -- still a patient -- Current Health Outpatient/Agency/Support Group Needs -- half-way (specify) -- Anticipated Changes Related to Illness none -- -- Living Environment Transportation Available -- car (caregiver from half-way) -- Activity/Self Care Review of Systems Equipment [...] ?? * Plan of Care - Skyler Aviles, RN - 09/21/2017 1:38 AM EDT Problem: Patient Care Overview Goal: Plan of Care Review 09/19/17173309/20/17 0908 Coping/Psychosocial Plan Of Care Reviewed [...] -- Current Health Outpatient/Agency/Support Group Needs -- half-way (specify) -- Anticipated Changes Related to Illness none -- -- Living Environment Transportation Available -- car (caregiver from half-way) -- Activity/Self Care Review of Systems Equipment [...] -- Current Health Outpatient/Agency/Support Group Needs -- half-way (specify) -- Anticipated Changes Related to Illness none -- -- Living Environment Transportation Available -- car (caregiver from half-way) -- Activity/Self Care Review of Systems Equipment Currently Used at Home -- none -- * Plan of Care - Lori Ordaz RN - 09/19/2017 5:52 PM EDT Problem: Patient Care Overview Goal: Plan of Care Review Outcome: Ongoing (Interventions Implemented as Appropriate) 09/19/17 2388 Coping/Psychosocial Plan Of Care Reviewed With patient [...] 09/04/17 86.6 kg (191 lb) Current bed: [facility] Assessment:Patient with no active pressure injury's at [...] pager or the wound care team at [phone] or pager [phone] withskin and wound care concerns or questions. [...] all self care tasks Anticipated Discharge [facility]position: [facility] Pager: [phone] ZULMA Vargas 09/20/2017 Occupational Therapy Rehabilitation Department [...] Assessment/Training Position (LB Dressing) sitting (in recliner) Ozark Level (LB Dressing) verbal cues required;set up [...] FWW, 2 assist LOUIS DORAN PTA Pager: [phone] Inpatient Physical Therapy 09/19/17 104 Rehab Evaluation Document Type therapy note (daily [...] Assessment/Treatment Assistive Device (Bed Mobility) bed rails Arxwqf-zx-Izf Ozark (Bed Mobility) verbal cues required;supervision required Comment (Bed Mobility) extra time required, HOB elevated Transfer Assessment/Treatment Bed-Chair Ozark (Transfers) minimum assist (75% patient effort);2 person assist required Chair-Bed Ozark (Transfers) minimum assist (75% patient effort);2 person assist required Goy-Ycugi-Lim Assistive Device (Transfers) rolling walker Ozark (Sit-Stand Transfers) minimum assist (75% patient effort);2 person assist required [place] (Stand-Sit Transfers) minimum assist (75% patient effort);2 person assist required Uyb-Pskob-Kdy Assistive Device (Transfers) rolling walker Maintain Weight Bearing Status (Transfers) able to maintain weight bearing status Impairments (Transfers) balance impaired;pain;strength decreased;vision impaired Comment (Transfers) Step by step instructions and cues, pt held L LE above the ground with a flexedhip and knee position throughout transfer Gait Assessment/Treatment Ozark (Gait) minimum assist (75% patient effort);2 person [...] all bed mobility activities Bed Mobility Goal, Ozark Level moderate assist (50% patient effort) Bed Mobility Goal, Outcome Achieved goal ongoing Gait Training Goal Gait Training Goal, Date Established 09/09/17 Gait Training Goal, Time to Achieve by discharge Gait Training Goal, Ozark Level minimum assist (75% patient effort) Gait Training Goal, Assist Device walker, rolling Gait Training Goal, Distance to Achieve 15 ft Gait Training Goal, Outcome goal ongoing Transfer Training Goal Transfer Training Goal, Date Established 09/09/17 Transfer Training Goal, Time to Achieve by discharge Transfer Training Goal, Activity Type grz-qd-ygkyh/mfjnu-oq-tjg Transfer Train Goal, Ozark Level minimum assist (75% patient effort) Transfer Training Goal, Assist Device walker, rolling Transfer Training Goal, Outcome goal ongoing Physical Therapy Goal PT Goal, Date Established 09/09/17 PT Goal, Time to Achieve by discharge PT Goal, Activity Type Pt will propel self in w/c household distances PT Goal, Ozark Level set up required;supervision required PT Goal, Outcome goal ongoing Clinical Impression Therapy Frequency 2-4 times/wk Anticipated Equipment Needs at Discharge front wheeled walker Anticipated Discharge Disposition [facility] (could go to handicap accesible half-way with assistance) * Plan of Care - [...] assist with ADLs. Surveillance [continuous indirect monitoring]: Masimo, nursing knowledge exchange, purposeful rounding. Patient has history of: No past medical history on file. Past Surgical History: Procedure Laterality Date ??? PRO OPEN COREMAKING SUPERVISOR FIX ACETABULAR FX Left 09/04/2017 @OPEN TREATMENT, ACETABULAR FX (WRVU 25.41) performed by Amy Lance MD at [facility] OR Patient has following SCHEDULED medications: [...] 30 days Current Health Outpatient/Agency/Support Group Needs half-way (specify) Goal: Interdisciplinary Rounds/Family Conf Outcome: Ongoing [...] monitoring]: Hourly rounding, call morris in reach, masimo, caregiver at bedside Patient-specific fall prevention interventions [...] History: Procedure Laterality Date ??? PRO OPEN COREMAKING SUPERVISOR FIX ACETABULAR FX Left 09/04/2017 @OPEN TREATMENT, ACETABULAR FX (WRVU 25.41) performed by Amy Lance MD at [facility] OR Patient has following SCHEDULED medications: [...] Handling Outcome: Ongoing (Interventions Implemented as Appropriate) 09/17/17 2110 Restraint Interventions Safety Promotion/Fall Prevention activity [...] self care tasks Anticipated Discharge Disposition: [facility] Pager: [phone] ZULMA Vargas 09/17/2017 Occupational Therapy Rehabilitation Department 09/17/17 1526 Rehab Evaluation Document Type therapy note (daily [...] Level 3 Bed Mobility Assessment/Treatment Roll Left Ozark (Bed Mobility) minimum assist (75% patient effort);nonverbal cues required (demo/gesture);verbal cues required Roll Right Ozark (Bed Mobility) verbal cues required;nonverbal cues required (demo/gesture) ADL Assessment/Intervention Additional Documentation Grooming Assessment/Training (Group) Grooming Assessment/Training Position (Grooming) (supine in bed with HOB raised) Ozark Level (Grooming) set up required;verbal cues required Impairments (Grooming) other (see comments) (cognative) Comment (Grooming) pt able to wash his face and stomach Plan of Care Review Plan Of Care Reviewed With patient Progress no change Clinical Impression Criteria for Skilled Therapeutic Interventions Met yes;treatment indicated Rehab Potential good, to achieve stated therapy goals Therapy Frequency 2-4 times/wk Anticipated Discharge Disposition [facility] * Plan of Care - Lenore [...] History: Procedure Laterality Date ??? PRO OPEN COREMAKING SUPERVISOR FIX ACETABULAR FX Left 09/04/2017 @OPEN TREATMENT, ACETABULAR FX (WRVU 25.41) performed by Amy Lance MD at [facility] Patient has following SCHEDULED medications: [...] Lance MD - 09/16/2017 10:24 AM EDT [facility] [place] Operative Note Patient Name: Miguel Angel Mason : [id number] MR#: [id number] Case Date: 09/04/2017 Surgeon: Surgeon(s) and Role: [...] and is otherwise quite independent in his half-way prior to this injury. Furthermore, she did [...] Overview Goal: Fall Prevention-Safe Patient Handling 09/13/17 0909/14/17 0722 09/15/17 0800 Restraint Interventions Safety Promotion/Fall [...] GOAL OUTCOME EVALUATION: Goal: Infection Control 09/15/17 0800 Safety Interventions Isolation Precautions standard precautions [...] patient Current Health Outpatient/Agency/Support Group Needs -- half-way (specify) -- Anticipated Changes Related to Illness -- none -- Living Environment Transportation Available -- other (see comments) (member from half-way can provide) -- Activity/Self Care Review of [...] Ongoing (Interventions Implemented as Appropriate) 09/15/17 1808 Coping/Psychosocial Plan Of Care Reviewed With patient [...] Overview Goal: Plan of Care Review 09/14/17 4782 Coping/Psychosocial Plan Of Care Reviewed With patient [...] -- Current Health Outpatient/Agency/Support Group Needs -- half-way (specify) -- Anticipated Changes Related to Illness -- none -- Living Environment Transportation Available -- other (see comments) (member from half-way can provide) -- Activity/Self Care Review of [...] Outcome: Ongoing (Interventions Implemented as Appropriate) 09/14/17 5742 Coping/Psychosocial Plan Of Care Reviewed With patient [...] applicable: [X] Yes - Bed alarm - Family/clinical care coordinator at bedside * Care Management - Eli Aragon RN - 09/14/2017 11:16 AM EDT Asked by previous CM to follow up on patient. Per review of chart, patient may be medically ready tomorrow. CM reviewed responses from referrals to SNF/Swing as followed: [facility] [address] [place] [address] - DECLINED- Patient too complex and do not have any private male rooms. [facility] PHONE: [phone] FAX: [phone]- has received referral but has not responded. [facility] [address] [place] [address] DECLINED- No appropriate bed to offer-concerns with behaviors as well. [facility] (Swing) [address] [place] [address] Pt appears alf, likely not a candidate for S/T rehab at [facility]. We have no beds today, but willkeep referral open. Will ask Friday CM/RS to follow up with [facility] and [facility]. If no beds available, CM to follow up with sibling (as noted in chart) to expand search. Covering pager #[phone] for today. * Plan of Care - [...] worsens with repositioning for incontinence care. Carisa VEHICLE OPERATOR TECHNICIAN and intact. Haldol 2 mg po given [...] Outcome: Ongoing (Interventions Implemented as Appropriate) 09/05/17 0609/07/17 0504 09/09/17 0323 Individualization Patient Specific Preferences [...] -- Current Health Outpatient/Agency/Support Group Needs -- half-way (specify) -- Anticipated Changes Related to Illness -- none -- Living Environment Transportation Available -- other (see comments) (member from half-way can provide) -- Activity/Self Care Review of [...] -- pain * Plan of Care - Page HospitalyohanPriscilla Ramone - 09/13/2017 5:10 PM EST Problem: Patient [...] self care tasks Anticipated Discharge Disposition: (P[facility] Pager: [phone] ZULMA Vargas 09/13/2017 Occupational Therapy Rehabilitation Department [...] -- Current Health Outpatient/Agency/Support Group Needs -- half-way (specify) -- Anticipated Changes Related to Illness -- none -- Living Environment Transportation Available -- other (see comments) (member from half-way can provide) -- Activity/Self Care Review of [...] applicable: [X] Yes - Bed alarm - Family/clinical care coordinator at bedside * Plan of Care - [...] Patient/Family/Caregiver Comments/Observations What exercises can he do? 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) General Observations [...] Assessment/Treatment Assistive Device (Bed Mobility) (HOB up) Egtgvv-cj-Zhd Ozark (Bed Mobility) verbal cues required;minimum assist (75% patient effort);2 person assist required Transfer Assessment/Treatment Bed-Chair Ozark (Transfers) verbal cues required;minimum assist (75% patient effort);moderate assist (50% patient effort);2 person assist required Cui-Qedbj-Ebb Assistive Device (Transfers) rolling walker Maintain Weight [...] Of Care Reviewed With patient;other (see comments) (PRECINCT I POLICE SERGEANT from half-way) Progress progress towards functional goals is fair Bed Mobility Goal Bed Mobility Goal, Activity Type all bed mobility activities Bed Mobility Goal, Ozark Level moderate assist (50% patient effort) Bed Mobility Goal, Date Goal Reviewed 09/12/17 Bed Mobility Goal, Outcome Achieved goal ongoing Gait Training Goal Gait Training Goal, Ozark Level minimum assist (75% patient effort) Gait Training Goal, Assist Device walker, rolling Gait Training Goal, Distance to Achieve 15 Gait Training Goal, Date Goal Reviewed 09/12/17 Gait Training Goal, Outcome goal ongoing Transfer Training Goal Transfer Training Goal, Time to Achieve by discharge Transfer Training Goal, Activity Type tzj-so-lbrvi/aojas-cq-pxy Transfer Train Goal, Ozark Level minimum assist (75% patient effort) Transfer Training Goal, Assist Device walker, rolling Transfer Train Goal, Date Goal Reviewed 09/12/17 Transfer Training Goal, Outcome goal ongoing Clinical Impression Rehab Potential fair, will monitor progress closely Therapy Frequency 2-4 times/wk Anticipated Equipment Needs at Discharge two wheeled walker Anticipated Discharge Disposition [facility];other (see comments) (could got to handicap accesible half-way with assistance) Staff Mobility Recommendations Stand pivot bed <-> chair toward right LE with FWW and min - mod assist x 2 - needs min assist to maintain NWB LLE with sit -> stand ETELVINA SZYMANSKI, PT Pager: [phone] Inpatient Physical Therapy * Consult Note - Isabel Garcia RN - 09/12/2017 11:40 AM EST Certified Wound Care Nurse Rounding Note During rounding on unit, nurse expressed pt is able to be turned Q2 hours with out issue. Issues/concerns identified: No issues at this time per trench digger Recommendations: Refer to adult/pediatric pressure ulcer prevention [...] sitting up in bed, having lunch with PRECINCT I POLICE SERGEANT from half-way Pertinent History of Current Problem Pt is [...] Device (Bed Mobility) (HOB up) Roll Left Ozark (Bed Mobility) minimum assist (75% patient effort);2 person assist required Roll Right Oz[place] (Bed Mobility) verbal cues required;nonverbal cues required (demo/gesture);minimum assist (75% patient effort);2 person assist required Scoot/Bridge Oz[place] (Bed Mobility) minimum assist (75% patient effort);2 person assist required Zubdty-hi-Gju Ozark (Bed Mobility) verbal cues required;nonverbal cues required (demo/gesture);minimum assist (75% patient effort);2 person assist required Safety Issues (Bed Mobility) decreased use of legs for bridging/pushing Impairments (Bed Mobility) pain;ROM (range of motion) decreased Transfer Assessment/Treatment Bed-Chair Ozark (Transfers) nonverbal cues required (demo/gesture);minimum assist (75% patient effort);moderate assist (50% patient effort);2 person assist required Gyg-Kfaup-Jpe Assistive Device (Transfers) rolling walker Ozark (Sit-Stand Transfers) minimum assist (75% patient effort);2 person assist required Maintain Weight Bearing Status (Transfers) assist to maintain weight bearing status Safety Issues (Transfers) weight-shifting ability decreased Impairments (Transfers) balance impaired;coordination impaired;pain;weight bearing status, unable to maintain Coping Observed Emotional State afraid/fearful;agitated Plan of Care Review Plan Of Care Reviewed With patient;other (see comments) (PRECINCT I POLICE SERGEANT) Progress progress towards functional goals is fair Bed Mobility Goal Bed Mobility Goal, Time to Achieve by discharge Bed Mobility Goal, Activity Type all bed mobility activities Bed Mobility Goal, Ozark Level moderate assist (50% patient effort) Bed Mobility Goal, Date Goal Reviewed 09/11/17 Bed Mobility Goal, Outcome Achieved goal ongoing Gait Training Goal Gait Training Goal, Time to Achieve by discharge Gait Training Goal, Ozark Level minimum assist (75% patient effort) Gait Training Goal, Assist Device walker, rolling Gait Training Goal, Distance to Achieve 15 Gait Training Goal, Outcome goal ongoing Transfer Training Goal Transfer Training Goal, Time to Achieve by discharge Transfer Training Goal, Activity Type qsf-vq-yewbm/hnkvq-eu-xvk Transfer Train Goal, Ozark Level minimum assist (75% patient effort) Transfer [...] setting of a possible seizure. PT Goal, Ozark Level set up required;supervision required Clinical Impression Therapy Frequency 2-4 times/wk Anticipated Equipment Needs at Discharge front wheeled walker Anticipated Discharge Disposition [facility] Staff Mobility Recommendations Assist x 2 for stand pivot transfer with FWW toward right - needs assist for NWBing with sit -> stand; does best when asked to count to 3 ETELVINA SZYMANSKI, PT Pager: [phone] Inpatient Physical Therapy * Plan of Care - Loren Trivedi RN - 09/11/2017 3:19 PM EST Problem: Patient Care Overview Goal: Plan of Care Review Outcome: Ongoing (Interventions Implemented as Appropriate) 09/10/17 0309 09/11/17 0800 Coping/Psychosocial Plan Of Care Reviewed With [...] -- Current Health Outpatient/Agency/Support Group Needs -- half-way (specify) -- Anticipated Changes Related to Illness -- none -- Living Environment Transportation Available -- other (see comments) (member from half-way can provide) -- Activity/Self Care Review of [...] -- Current Health Outpatient/Agency/Support Group Needs -- half-way (specify) -- Anticipated Changes Related to Illness -- none -- Living Environment Transportation Available -- other (see comments) (member from half-way can provide) -- Activity/Self Care Review of [...] at this time and morse replaced per DIRECTOR [employer]IANCE MARKETING orders. Pt also removed transverse abdominal dressing, RN replaced with gauze and tegaderm. PRN pain meds provided ATC, see MAR. Pt did not appear to get any relief. DIRECTOR [employer]IANCE MARKET[employer] notified, one time dose of lorazepam ordered [...] to be independent enough to return to [facility]. Pt would benefit from ongoing physical therapy interventions. Staff Mobility Recommendations Would recommend bedrest until further PT/OT sessions Murtaza Bruce PT Pager: [phone] Inpatient Physical Therapy 2017 PT Evaluation Code [...] Living Environment Comment Pt lives in a half-way with 3 other roomates. The product owner of the half-way reports that they have a caregiver there [...] a good distraction from patient. At the half-way he tends to wear jenas with no [...] formally assess 2/2 cognition; however ptable to shredder picker leg volitionally and stand up w/ assist Mobility Assessment/Training Additional Documentation Bed Mobility Assessment/Treatment (Group);Transfer Assessment/Treatment (Group);Weight-Bearing Status (Group) Weight-Bearing Status Extremity Weight Bearing Status left lower extremity Bed Mobility Assessment/Treatment Assistive Device (Bed Mobility) (elevated HOB) Scoot/Bridge Oz[place] (Bed Mobility) minimum assist (75% patient effort) Odgika-cf-Vid Ozark (Bed Mobility) minimum assist (75% patient effort);2 person assist required Prk-ni-Qkqbgn Ozark (Bed Mobility) minimum assist (75% patient effort);2 person assist required Impairments (Bed Mobility) coordination impaired;pain;ROM (range of motion) decreased;strength decreased Comment (Bed Mobility) pt able to initiate movements in bed; limited by pain; distraction techniqueof chewing gum worked well Transfer Assessment/Treatment Ozark (Sit-Stand Transfers) minimum assist (75% patient effort);2 person assist required;verbal cues required Oz[place] (Stand-Sit Transfers) minimum assist (75% patient effort);2 person assist required;verbal cues required Vry-Ijqum-Dsz Assistive Device (Transfers) rolling walker Maintain Weight [...] normal balance Sitting Balance: Dynamic good balance Huj-cp-Wcxde Balance fair balance Standing Balance: Static fair [...] all bed mobility activities Bed Mobility Goal, Ozark Level moderate assist (50% patient effort) Gait Training Goal Gait Training Goal, Date Established 09/09/17 Gait Training Goal, Time to Achieve by discharge Gait Training Goal, Ozark Level minimum assist (75% patient effort) Gait Training Goal, Assist Device walker, rolling Gait Training Goal, Distance to Achieve 15' Transfer Training Goal Transfer Training Goal, Date Established 09/09/17 Transfer Training Goal, Time to Achieve by discharge Transfer Training Goal, Activity Type mpg-lr-xdjlj/rolwv-er-kpz;zqq-om-gqxye/jacln-ai-ypo Transfer Train Goal, Ozark Level minimum assist (75% patient effort) Transfer Training Goal, Assist Device walker, rolling Physical Therapy Goal PT Goal, Date Established 09/09/17 PT Goal, Time to Achieve by discharge PT Goal, Activity Type Pt will propel self in w/c household distances PT Goal, Ozark Level set up required;conditional independence Clinical Impression Rehab Potential fair, will monitor progress closely Therapy Frequency 2-4 times/wk Anticipated Equipment Needs at Discharge (TBD at rehab ) Anticipated Discharge [facility] General Interventions Additional Documentation Planned Therapy [...] Given the set up of h is half-way, anticipate a need for rehab. Staff Recommendations/Things [...] sometimes rips shirts off. Anticipated Discharge [facility]position: [facility] Pager: [phone] SKYLA AYALA, OT 09/09/2017 Occupational Therapy Rehabilitation [...] and measurable assessment of functional outcome. 09/09/17 0662 Rehab Evaluation Document Type evaluation Total Evaluation [...] Living Environment Comment Pt lives in a half-way with 3 other roomates. The product owner of the half-way reports that they have a caregiver there [...] a good distraction for patient. At the half-way he tends to wear jeans with no [...] UE slightly weak than R, but good sales office assistant on R Weight-Bearing Status Extremity Weight Bearing Status left lower extremity Bed Mobility Assessment/Treatment Assistive Device (Bed Mobility) (HOB raised) Scoot/Bridge [place] (Bed Mobility) minimum assist (75% patient effort) Squglv-ep-Qjq [place] (Bed Mobility) minimum assist (75% patient effort);2 person assist required;verbal cues required (verbal/tactile cues) Otc-hi-Klbkjy [place] (Bed Mobility) minimum assist (75% patient effort);2 person assist required Impairments (Bed Mobility) pain;strength decreased;coordination impaired;ROM (range of motion) decreased;other (see comments) (mental status) Comment (Bed Mobility) Pt relutant to sit initially 2' pain. Gave gum as likes to chew on things for a coping mechanism. Transfer Assessment/Treatment [place] (Sit-Stand Transfers) minimum assist (75% patient effort);2 person assist required;verbal cues required (tactile cues) [place] (Stand-Sit Transfers) minimum assist (75% patient effort);2 person assist required;verbal cues required Nfv-Qrgdt-Arg Assistive Device (Transfers) rolling walker Maintain Weight Bearing Status (Transfers) assist to maintain weight bearing status;cues to maintain weight bearing status Impairments (Transfers) balance impaired;pain;coordination impaired;ROM (range of motion) decreased;strength decreased;other (see comments) (mental status ) Lower Body Dressing Assessment/Training Position (LB Dressing) sitting [place] Level (LB Dressing) dependent (less than 25% patient effort) Impairments (LB Dressing) balance impaired;coordination impaired;pain;strength decreased (mental status) Comment (LB Dressing) for socks Toileting Assessment/Training Position (Toileting) supported sitting [place] Level (Toileting) dependent (less than 25% patient effort) Impairments (Toileting) pain;coordination impaired;strength decreased (poor initation, awareness, decreased mobility ) Comment (Toileting) has catheter and wearing depends. Gave Pt gum as Pt was trying to chew his diaper. Balance Skills Training Training Strategies (Balance) seated eob Sitting Balance: Static normal balance Sitting Balance: Dynamic good balance Ebz-rw-Qbiwo Balance fair balance Standing Balance: Static fair [...] wheelchair, commode, shower seat) Anticipated Discharge Disposition [facility] General Therapy Interventions Planned Therapy Interventions ADL retraining;IADL retraining;balance training;bed mobility training;ROM (range of motion);strengthening;transfer training;other (see comments) (ther. activity/play, communication strategies, coping mech. ) * Plan of Care - Elsy Mei RN - 09/09/2017 3:32 AM EST Problem: Patient Care Overview Goal: Plan of Care Review Outcome: Ongoing (Interventions Implemented as Appropriate) 09/08/17 1937 09/09/17 0323 Coping/Psychosocial Plan Of Care Reviewed With [...] Surveillance [continuous indirect monitoring]: Masimo, purposeful rounding, career services coordinator at bedside, hourly safety checks. Patient-specific fall [...] patient Current Health Outpatient/Agency/Support Group Needs -- half-way (specify) Anticipated Changes Related to Illness -- none Living Environment Transportation Available -- other (see comments) (member from half-way can provide) Activity/Self Care Review of Systems [...] Current Decision-Making Capacity: sister Bettina Mason (Sibling) [address] [facility] [place] [address] [place] ?? Advance Care Planning: not on file Current Coping/Education/Information Needs: Coping well per care givers ?? Current Functional Ability: has not had PT yet per care givers ?? Functional Status Prior to Admission: lives in half-way setting on 2nd level able to ascend stairs, showers self with stand by assist r/t blindness per care givers, non communicative however the care givers seem able to understand at least some of pt's attempts of communication. ?? Home Environment: 3 level [facility]-way[facility] [place] ?? Social & Family Supports/Community Resources: Extended Emergency Contact Information Primary Emergency Contact: Bettina Mason Address: [address] [place] [address] Relation: Sibling ?? Behavioral Health History: NA ?? Substance Use/Abuse: NA ?? Other Pertinent/Service Specific Information: unlikely be able to return to half-way immediately ?? Health/Prescription Coverage: Primary Insurance: Payor: [place] / Plan[place] / Product Type: *No Product type* / Secondary Insurance: Prescription Coverage: see above Preferred Pharmacy: No Pharmacies Listed Other: None ?? Primary Care Provider: NAKIA Cifuentes [phone] ?? Patient/Caregiver Goals of Treatment: Safe discharge ? Potential Needs for Transition of Care: Rehab/SNF: TBD Home Health: no DME: no Dialysis: No Community Resources: No Transportation: ambulance Other: None ?? Anticipated Barriers to Discharge/Special Considerations: None ?? Plan: Per discussion with care givers pt may be near facilities such as [facility], [facility] and the [facility] in [place]. CM will need to connect with sister for choices ?? A member of the Care Management team will continue to monitor progress, follow for continuity of care and assist with transition of care planning. ?? CHAVEZ KELSEY RN Pager: [phone] ? * Plan of Care - Josefina [...] -- ISHAAN Goal: Fall Prevention-Safe Patient Handling 09/07/17212909/08/17 0815 Restraint Interventions Safety Promotion/Fall Prevention -- activity [...] Fall Risk -- High Goal: Infection Control 09/07/17212909/08/17 0815 Safety Interventions Isolation Precautions -- standard precautions maintained Infection Prevention -- environmental surveillance performed;rest/sleep promoted Coping Strategies Supportive Measures active listening utilized;goal setting facilitated;positive reinforcement provided;verbalization of feelings encouraged -- Goal: Discharge Needs Assessment 09/07/1750309/08/17 0403 Discharge Needs Assessment Concerns To Be Addressed -- no discharge needs identified Readmission Within The Last 30 Days -- no previous admission in last 30 days Equipment Needed After Discharge -- other (see comments) (TBD) Current Discharge Risk -- cognitively impaired;physical impairment Discharge Disposition -- still a patient Current Health Outpatient/Agency/Support Group Needs -- half-way (specify) Anticipated Changes Related to Illness -- none Living Environment Transportation Available -- other (see comments) (member from half-way can provide) Activity/Self Care Review of Systems Equipment Currently Used at Home none -- Goal: Interdisciplinary Rounds/Family Conf 09/06/17 0350 Interdisciplinary Rounds/Family Conf Participants patient;nursing Problem: Skin Integrity Impairment, Risk/Actual (Adult) Goal: Identify Related Risk Factors and Signs and Symptoms Related risk factors and signs and symptoms are identified upon initiation of Human Response Clinical Practice Guideline (CPG) 09/06/17 0350 Skin Integrity Impairment, Risk/Actual Skin [...] the desired outcomes by discharge/transition of care. 09/06/17 0350 Skin Integrity Impairment, Risk/Actual (Adult) Skin Integrity/Wound Healing making progress toward outcome * Plan of Care - Elsy Mei RN - 09/08/2017 4:13 AM EST Problem: Patient Care Overview Goal: Plan of Care Review Outcome: Ongoing (Interventions Implemented as Appropriate) 09/06/17 0350 09/07/17 2130 Coping/Psychosocial Plan Of [...] patient Current Health Outpatient/Agency/Support Group Needs -- half-way (specify) Anticipated Changes Related to Illness -- none Living Environment Transportation Available -- other (see comments) (member from half-way can provide) Activity/Self Care Review of Systems Equipment Currently Used at Home none -- Goal: Interdisciplinary Rounds/Family Conf Outcome: Ongoing (Interventions Implemented as Appropriate) 09/06/17 035 Interdisciplinary Rounds/Family Conf Participants patient;nursing Problem: Skin [...] CPG). Outcome: Ongoing (Interventions Implemented as Appropriate) 09/06/17213409/07/17 213 Fracture Orthopaedic Problems Assessed (Orthopaedic Fracture) -- all Problems Present (Orthopaedic Fracture) pain -- * Plan of Care - Lisa Person RN - 09/06/2017 3:00 PM EST Problem: Patient Care Overview Goal: Plan of Care Review Outcome: Ongoing (Interventions Implemented as Appropriate) 09/06/17 0350 09/06/17 1014 Coping/Psychosocial Plan Of Care Reviewed With [...] discomfort. Resting comfortably in between care with bone char operator at bedside. Repositioned frequently to prevent skin [...] CPG). Outcome: Ongoing (Interventions Implemented as Appropriate) 09/06/17 035 Fracture Orthopaedic Problems Assessed (Orthopaedic Fracture) all [...] 115s-120s this morning, was sustaining in 130s, MD aware no new orders at this time. [...] Ongoing (Interventions Implemented as Appropriate) 09/05/17 0607 Skin Integrity Impairment, Risk/Actual Skin Integrity Impairment, [...] Patient greeted and reason for visit stated. residential caregiver at bedside. RN at bedside, patient able [...] Please contact Isabel Garcia RN on pager [phone] or the wound care team at [phone] or pager [phone] skin and wound care concerns or questions. [...] HR was tachy for most of shift, [employer]OR [employer] paged and EKG ordered. IV metoprolol given x2 for HR in 140s, but pt sustained in 120s for most of shift. Phosphorus and Magnesiumordered with AM labs, phos critical at 1.1, [employer]OR [employer] notified. IV K phosphate ordered. Pt was [...] Outcome: Ongoing (Interventions Implemented as Appropriate) 09/04/17 0809/04/172199 Restraint Interventions Safety Promotion/Fall Prevention -- activity supervised;muscle strengthening facilitated;fall prevention program maintained;safety round/check completed Activity Activity Type -- activity adjusted per tolerance Activity Assistance Provided assistance, 3 or more people -- Positioning Body Position -- supine, head elevated Daily Care Interventions Self-Care Promotion -- independence encouraged;BADL personal objects within reach;BADL personal routines maintained;safe use of adaptive equipment encouraged [place] Fall Risk History of Falling -- 0 [...] Note Patient Name: Miguel Angel Mason : [id number] MR#: [id number] Case Date: 09/04/2017 Surgeon: Surgeon(s) and Role: [...] Review Outcome: Ongoing (Interventions Implemented as Appropriate) 09/03/172120 Coping/Psychosocial Plan Of Care Reviewed With patient;caregiver [...] a 27 y.o.male with PMH significant for half-way resident, 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 CT showed an acute left acetabular fracture and osteopenia, he was given morphine, dilaudid and ativan for pain and sedation and was transferred here. Na at [facility] 132. VS here, tachycardic up to 146 [...] 2004 (s/p removal of pituitary gland in [facility] secondary to surgery. He has been on thyroid replacement 150 mcg daily, DDAVP 0.05 mg three times a day, maintenance hydrocortisone 20 mg morning, 10 mg noon and 10 mg 7 pm and androgel 1% 3 pumps daily. He has been on these doses for a couple of years. 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 Niles Tillman. I reviewed the santos portions of the history and physical exam, and reviewed pertinent lab data. I answered all patient questions. I was involved in all medical decision making and agree with this plan. GENEVIEVE PAGE MD Employee Representativeintrusion analyst Section of Endocrinology [facility] * Consult Note - David [...] acetabular fracture. The patient lives in a half-way at baseline. 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 He presented to [facility] from where he was transferred here for surgery. He was given ativan to prevent further seizures as well as dilaudid for pain. The patient has a history of seizures. He last had a similar seizure 4 years ago. He is on zonisamide 100 mg at bedtime which he has been taking daily without issues. In the past he had more frequentseizures between [id number]. His sister is unsure of what types of seizures, she does not think he had GTC in the past. He has no known history of status epilepticus. He has had imaging in the past, EEG but his sister is unsure of the results. He has a neurologist in [place], [place]. At his baseline state, he has [...] no use Living situation: lives in a half-way, has people who help with most ADL [...] file Social History N[place]ative [place] [facility] [place]. Review of systems: Constitutional: [...] L Elbow flexion 5/5 R, 5/5 L [place] LE: 5/5 R, [place] L Hip flexion [...] sec ABO/Rh Typing Result [facility] O Pos Antibody screen Result Value [...] testing Moisés Orr MD PGY-3 Neurology Pager [phone] Neurology Attending I saw and evaluated the [...] status David Phillips [place] [address] Pager #[phone] Email: [email or web address] Plan of Care - Marisabel Cunningham [...] in a van. He lives in a half-way. At baseline he ambulates without assistive devices. He is accompanied by his sister and her friend. His sister is his DPOA. She says he went in the half-way van today. After the ride he was moaning in pain. They took him to [facility] where imaging revealed a left acetabular fracture. Both her and the half-way feel that he had a seizure on [...] left distal femur traction pin placement, Mr. Mason's sister, his DPOA verbally consented to proceed. [...] evaluation and treatment. Please call Ortho resident soil conservation aide with any questions or concerns. * ED Triage - Sara Simmons RN - 09/02/2017 9:29 PM EST Pt was in a wheelchair, and had a seizure, ? Boot catching on the chair and pt fell out of the chair and has a left pelvic FX. Left foot +2pulse/<3sec refill. documented in this encounter Plan of Treatment Pending Results Name Type Priority Associated Diagnoses [...] T wave inversion in EKG CARDIAC ENZYMES ([facility]) Routine 03/02/2018 6:26 AM EDT [...] 02/28/2018 4: 20 PM EDT CARDIAC ENZYMES ([facility]) Routine 02/28/2018 4:20 PM EDT [...] 02/28/2018 11:26 AM EDT Tachycardia [facility]IAC ENZYMES ([facility]) Routine 02/28/2018 9:26 AM EDT BASIC METABOLIC [...] IMPLANTABLE DEVICES SCAN 09/04/2017 12:00 AM EST SAP BASIS ARCHITECT SCAN 09/04/2017 12:00 AM EST URINALYSIS WITH [...] EDT) Glucose 90 65 - 199 mg/dL [facility] Comment:Diabetes: >=200 mg/d L plus symptoms Blood Urea Nitrogen 11 10 - 20 mg/dL [facility] Creatinine 0.70(L) 0.80 - 1.50 mg/dL [facility] Sodium 138 135 - 145 mmol/L [facility] Potassium 3.9 3.5 - 5.0 mmol/L [facility] Comment: Please note: ??Patients with WBC >100,000 may have falsely elevated Potassium levels. ??For accurate Potassium quantification in these patients send serum separator tube (gold top) for subsequent determinations. ??Contact the Clinical Chemistry Laboratory if there are any questions. Chloride 100 98 - 107 mmol/L [facility] Carbon Dioxide 24 22 - 31 mmol/L [facility] Anion Gap 14 5 - 15 mmol/L [facility] Calcium 8.7 8.5 - 10.5 mg/dL [facility] Est Glomerular Filtration Rate 129 >=60 mL/min/1. 73 m?? [facility] Comment: The eGFR was calculated using the CKD-EPI equation. As with all creatinine based estimates of kidney function, eGFR values calculated with the CKD-EPI equation are not accurate in patients with acute kidney failure, extremes of body mass or the acutely ill. [email or web address] eGFR 150 >=60 mL/min/1. 73 m?? [facility] Comment: The eGFR was calculated using the CKD-EPI equation. As with all creatinine based estimates of kidney function, eGFR values calculated with the CKD-EPI equation are not accurate in patients with acute kidney failure, extremes of body mass or the acutely ill. [email or web address] Blood specimen (specimen) 03/10/2018 1:48 PM EDT 03/10/2018 2:05 PM EDT Narrative Resulting Agency Comment Spec In Lab Gabriella Maher MD CHEMISTRY ORDERABLES [facility] [place] [address] * (ABNORMAL) Basic Metabolic Panel (non-fasting) (03/09/2018 8:46 AM EDT) Glucose 97 65 - 199 mg/dL [facility] Comment:Diabetes: >=200 mg/d L plus symptoms Blood Urea Nitrogen 9(L) 10 - 20 mg/dL [facility] Creatinine 0.68(L) 0.80 - 1.50 mg/dL [facility] Sodium 133(L) 135 - 145 mmol/L [facility] Potassium 3.7 3.5 - 5.0 mmol/L [facility] Comment: Please note: ??Patients with WBC >100,000 may have falsely elevated Potassium levels. ??For accurate Potassium quantification in these patients send serum separator tube (gold top) for subsequent determinations. ??Contact the Clinical Chemistry Laboratory if there are any questions. Chloride 98 98 - 107 mmol/L [facility] Carbon Dioxide 22 22 - 31 mmol/L [facility] Anion Gap 13 5 - 15 mmol/L [facility] Calcium 9.0 8.5 - 10.5 mg/dL [facility] Est Glomerular Filtration Rate 131 >=60 mL/min/1. 73 m?? [facility] Comment: The eGFR was calculated using the CKD-EPI equation. As with all creatinine based estimates of kidney function, eGFR values calculated with the CKD-EPI equation are not accurate in patients with acute kidney failure, extremes of body mass or the acutely ill. [email or web address] eGFR 152 >=60 mL/min/1. 73 m?? [facility] Comment: The eGFR was calculated using the CKD-EPI equation. As with all creatinine based estimates of kidney function, eGFR values calculated with the CKD-EPI equation are not accurate in patients with acute kidney failure, extremes of body mass or the acutely ill. [email or web address] Blood specimen (specimen) 03/09/2018 8:46 AM EDT 03/09/2018 9:15 AM EDT Narrative Resulting Agency Comment Spec In Lab Gabriella Maher MD CHEMISTRY ORDERABLES [facility] [place] [address] * (ABNORMAL) Basic Metabolic Panel (non-fasting) (03/08/2018 6:19 AM EDT) Glucose 107 65 - 199 mg/dL [facility] Comment:Diabetes: >=200 mg/d L plus symptoms Blood Urea Nitrogen 16 10 - 20 mg/dL [facility] Creatinine 0.72(L) 0.80 - 1.50 mg/dL [facility] Sodium 133(L) 135 - 145 mmol/L [facility] Potassium 3.5 3.5 - 5.0 mmol/L [facility] Comment: Please note: ??Patients with WBC >100,000 may have falsely elevated Potassium levels. ??For accurate Potassium quantification in these patients send serum separator tube ([facility] top) for subsequent determinations. ??Contact the Clinical Chemistry Laboratory if there are any questions. Chloride 97(L) 98 - 107 mmol/L [facility] Carbon Dioxide 21(L) 22 - 31 mmol/L [facility] Anion Gap 15 5 - 15 mmol/L [facility] Calcium 9.0 8.5 - 10.5 mg/dL [facility] Est Glomerular Filtration Rate 128 >=60 mL/min/1. 73 m?? [facility] Comment: The eGFR was calculated using the CKD-EPI equation. As with all creatinine based estimates of kidney function, eGFR values calculated with the CKD-EPI equation are not accurate in patients with acute kidney failure, extremes of body mass or the acutely ill. [email or web address]kf eGFR 148 >=60 mL/min/1. 73 m?? [facility] Comment: The eGFR was calculated using the CKD-EPI equation. As with all creatinine based estimates of kidney function, eGFR values calculated with the CKD-EPI equation are not accurate in patients with acute kidney failure, extremes of body mass or the acutely ill. [email or web address] Blood specimen (specimen) 03/08/2018 6:19 AM EDT 03/08/2018 6:34 AM EDT Narrative Resulting Agency Comment Spec In Lab Gabriella Maher MD CHEMISTRY ORDERABLES [facility] [place] [address] * (ABNORMAL) Basic Metabolic Panel (non-fasting) (03/07/2018 5:23 PM EDT) Glucose 99 65 - 199 mg/dL [facility] Comment:Diabetes: >=200 mg/d L plus symptoms Blood Urea Nitrogen 15 10 - 20 mg/dL [facility] Creatinine 0.72(L) 0.80 - 1.50 mg/dL [facility] Sodium 135 135 - 145 mmol/L [facility] Comment:result rechecked-RG Potassium 3.5 3.5 - 5.0 mmol/L [facility] Comment: Please note: ??Patients with WBC >100,000 may have falsely elevated Potassium levels. ??For accurate Potassium quantification in these patients send serum separator tube (gold top) for subsequent determinations. ??Contact the Clinical Chemistry Laboratory if there are any questions. Chloride 98 98 - 107 mmol/L [facility] Carbon Dioxide 22 22 - 31 mmol/L [facility] Anion Gap 15 5 - 15 mmol/L [facility] Calcium 8.9 8.5 - 10.5 mg/dL [facility] Est Glomerular Filtration Rate 128 >=60 mL/min/1. 73 m?? [facility] Comment: The eGFR was calculated using the CKD-EPI equation. As with all creatinine based estimates of kidney function, eGFR values calculated with the CKD-EPI equation are not accurate in patients with acute kidney failure, extremes of body mass or the acutely ill. [email or web address]kf eGFR 148 >=60 mL/min/1. 73 m?? [facility] Comment: The eGFR was calculated using the CKD-EPI equation. As with all creatinine based estimates of kidney function, eGFR values calculated with the CKD-EPI equation are not accurate in patients with acute kidney failure, extremes of body mass or the acutely ill. [email or web address]kf Blood specimen (specimen) 03/07/2018 5:23 PM EDT 03/07/2018 5:29 PM EDT Narrative Resulting Agency Comment Spec In Lab Gabriella Maher MD CHEMISTRY ORDERABLES [facility] [place] [address] * Basic Metabolic Panel (non-fasting) (03/05/2018 2:19 PM EDT) Glucose 186 65 - 199 mg/dL [facility] [facility] Comment:Diabetes: >=200 mg/d L plus symptoms Blood Urea Nitrogen 14 10 - 20 mg/dL [facility] Creatinine 0.81 0.80 - 1.50 mg/dL [facility] Sodium 144 135 - 145 mmol/L [facility] Potassium 3.6 3.5 - 5.0 mmol/L [facility] Comment: Please note: ??Patients with WBC >100,000 may have falsely elevated Potassium levels. ??For accurate Potassium quantification in these patients send serum separator tube (gold top) for subsequent determinations. ??Contact the Clinical Chemistry Laboratory if there are any questions. Chloride 106 98 - 107 mmol/L [facility] Carbon Dioxide 24 22 - 31 mmol/L [facility] Anion Gap 14 5 - 15 mmol/L [facility] Calcium 9.1 8.5 - 10.5 mg/dL [facility] Est Glomerular Filtration Rate 122 >=60 mL/min/1. 73 m?? [facility] Comment: The eGFR was calculated using the CKD-EPI equation. As with all creatinine based estimates of kidney function, eGFR values calculated with the CKD-EPI equation are not accurate in patients with acute kidney failure, extremes of body mass or the acutely ill. [email or web address] eGFR 141 >=60 mL/min/1. 73 m?? [facility] Comment: The eGFR was calculated using the CKD-EPI equation. As with all creatinine based estimates of kidney function, eGFR values calculated with the CKD-EPI equation are not accurate in patients with acute kidney failure, extremes of body mass or the acutely ill. [email or web address] Blood specimen (specimen) 03/05/2018 2:19 PM EDT 03/05/2018 2:25 PM EDT Narrative Resulting Agency Comment Spec In Lab Reba Linton MD CHEMISTRY ORDERA BLES [facility] [place] [address] * (ABNORMAL) Basic Metabolic Panel (non-fasting) (03/04/2018 7:53 AM EDT) Glucose 92 65 - 199 mg/dL [facility] Comment:Diabetes: >=200 mg/d L plus symptoms Blood Urea Nitrogen 15 10 - 20 mg/dL [facility] Creatinine 0.75(L) 0.80 - 1.50 mg/dL [facility] Sodium 148(H) 135 - 145 mmol/L [facility] Potassium 3.5 3.5 - 5.0 mmol/L [facility] Comment: Please note: ??Patients with WBC >100,000 may have falsely elevated Potassium levels. ??For accurate Potassium quantification in these patients send serum separator tube (gold top) for subsequent determinations. ??Contact the Clinical Chemistry Laboratory if there are any questions. Chloride 109(H) 98 - 107 mmol/L [facility] Carbon Dioxide 25 22 - 31 mmol/L [facility] Anion Gap 14 5 - 15 mmol/L [facility] Calcium 9.8 8.5 - 10.5 mg/dL [facility] Est Glomerular Filtration Rate 126 >=60 mL/min/1. 73 m?? [facility] Comment: The eGFR was calculated using the CKD-EPI equation. As with all creatinine based estimates of kidney function, eGFR values calculated with the CKD-EPI equation are not accurate in patients with acute kidney failure, extremes of body mass or the acutely ill. [email or web address] eGFR 146 >=60 mL/min/1. 73 m?? [facility] Comment: The eGFR was calculated using the CKD-EPI equation. As with all creatinine based estimates of kidney function, eGFR values calculated with the CKD-EPI equation are not accurate in patients with acute kidney failure, extremes of body mass or the acutely ill. [email or web address] Blood specimen (specimen) 03/04/2018 7:53 AM EDT 03/04/2018 8:03 AM EDT Narrative Resulting Agency Comment Spec In Lab Reba Linton MD CHEMISTRY ORDERA BLES [facility] [place] [address] * (ABNORMAL) Basic Metabolic Panel (non-fasting) (03/03/2018 12:47 PM EDT) Glucose 260(H) 65 - 199 mg/dL [facility] Comment:Diabetes: >=200 mg/d L plus symptoms Blood Urea Nitrogen 14 10 - 20 mg/dL [facility] Creatinine 0.81 0.80 - 1.50 mg/dL [facility] Sodium 150(H) 135 - 145 mmol/L [facility] Potassium 4.3 3.5 - 5.0 mmol/L [facility] Comment: Please note: ??Patients with WBC >100,000 may have falsely elevated Potassium levels. ??For accurate Potassium quantification in these patients send serum separator tube (gold top) for subsequent determinations. ??Contact the Clinical Chemistry Laboratory if there are any questions. Chloride 114(H) 98 - 107 mmol/L [facility] Carbon Dioxide 22 22 - 31 mmol/L [facility] Anion Gap 14 5 - 15 mmol/L [facility] Calcium 9.6 8.5 - 10.5 mg/dL [facility] Est Glomerular Filtration Rate 122 >=60 mL/min/1. 73 m?? [facility] Comment: The eGFR was calculated using the CKD-EPI equation. As with all creatinine based estimates of kidney function, eGFR values calculated with the CKD-EPI equation are not accurate in patients with acute kidney failure, extremes of body mass or the acutely ill. [email or web address] eGFR 141 >=60 mL/min/1. 73 m?? [facility] Comment: The eGFR was calculated using the CKD-EPI equation. As with all creatinine based estimates of kidney function, eGFR values calculated with the CKD-EPI equation are not accurate in patients with acute kidney failure, extremes of body mass or the acutely ill. [email or web address] Blood specimen (specimen) 03/03/2018 12:47 PM EDT 03/03/2018 1:16 PM EDT Narrative Resulting Agency Comment Spec In Lab Reba Linton MD CHEMISTRY ORDERA BLES Performing Organization Address City/State/[facility] Co de Phone Number [facility] [place] [phone] * ECHO COMPLETE (03/02/2018 1:08 PM EDT) EF 65 HEARTLAB SYSTEM Anatomical Region Laterality Modality Other 03/02/2018 Narrative 03/02/2018 1:32 PM EDT Procedure: ?Transthoracic Echocardiogram Patient: ?ISABELLA Pop ?(Age): 1990(27y) Med Rec#: ? [id number] ?Sex: ?M ? Site Loc: ? [facility] [place] ?Ht / Wt: ??177(cm)/99(kg) Pt. Loc: ?Adult Floor ? BSA: ?2.16 Study Date: ?? 03/02/2018 ?Pt. Type: Inpatient Tape: ? Referring: Reba Linton Referring: HONORIO Reading: Drew Driscoll ([id number]) Filter Helper: Noel Ash Diagnosis: *Abnormal electrocardiogram [ECG] [EKG] [...] E-wave Vmax ?0.7 ?m/sec ? MV deceleration [id number] ?msec ? MV A-wave Vmax ?0.5 ?m/sec [...] ? Mid-Inferior ?Normal ? Mid-Inferoseptal ?Normal ? [place]-Septal ? Normal ? [place]-Anterior ? Normal ? [place]-Lateral ?Normal ? [place]-Inferior ? Normal ? [place]-Tip ?Normal ? This report has been electronically signed by: Drew Driscoll MD ? 03/02/2018 13:32:27 Images reviewed and interpretation verified [facility]ound [facility] Procedure Note Drew Driscoll MD - 03/02/2018 Procedure: Transthoracic Echocardiogram Patient: ISABELLA ARZATE(Age): 1990(27y) Med Rec#: [id number] Sex: M Site Loc: [facility] [place] Ht / Wt: 177(cm)/99(kg) Pt. Loc: Adult Floor BSA: 2.16 Study Date: 03/02/2018 Pt. Type: Inpatient Tape: Referring: Reba Linton Referring: KENNETHUNDSHERRI Reading: Drew Driscoll ([id number]) Filter Helper: Noel Ash Diagnosis: *Abnormal electrocardiogram [ECG] [EKG] [...] MV E-wave Vmax 0.7 m/sec MV deceleration [id number] msec MV A-wave Vmax 0.5 m/sec MV [...] Normal Mid-Posterolateral Normal Mid-Inferior Normal Mid-Inferoseptal Normal [place]-Septal Normal [place]-Anterior Normal [place]-Lateral Normal [place]-Inferior Normal [place]-Tip Normal This report has been electronically signed by: Drew Driscoll MD 03/02/2018 13:32:27 Images reviewed and interpretation verified [facility] Reba Linton MD ECHO ORDERABLES * (ABNORMAL) Basic Metabolic Panel (non-fasting) (03/02/2018 6:26 AM EDT) Glucose 102 65 - 199 mg/dL [facility] Comment:Diabetes: >=200 mg/d L plus symptoms Blood Urea Nitrogen 17 10 - 20 mg/dL [facility] Creatinine 0.64(L) 0.80 - 1.50 mg/dL [facility] Comment:Specimen ultracentri fuged due to gross lipemia Sodium 145 135 - 145 mmol/L [facility] Potassium 3.5 3.5 - 5.0 mmol/L [facility] Comment: Please note: ??Patients with WBC >100,000 may have falsely elevated Potassium levels. ??For accurate Potassium quantification in these patients send serum separator tube (gold top) for subsequent determinations. ??Contact the Clinical Chemistry Laboratory if there are any questions. Chloride 109(H) 98 - 107 mmol/L [facility] Carbon Dioxide 23 22 - 31 mmol/L [facility] Anion Gap 13 5 - 15 mmol/L [facility] Calcium 9.5 8.5 - 10.5 mg/dL [facility] Est Glomerular Filtration Rate 134 >=60 mL/min/1. 73 m?? [facility] Comment: The eGFR was calculated using the CKD-EPI equation. As with all creatinine based estimates of kidney function, eGFR values calculated with the CKD-EPI equation are not accurate in patients with acute kidney failure, extremes of body mass or the acutely ill. [email or web address] eGFR 156 >=60 mL/min/1. 73 m?? [facility] Comment: The eGFR was calculated using the CKD-EPI equation. As with all creatinine based estimates of kidney function, eGFR values calculated with the CKD-EPI equation are not accurate in patients with acute kidney failure, extremes of body mass or the acutely ill. [email or web address] Blood specimen (specimen) 03/02/2018 6:26 AM EDT 03/02/2018 6:42 AM EDT Narrative Resulting Agency Comment Spec In Lab Reba Linton MD CHEMISTRY ORDERA BLES [facility] [place] [address] * Cardiac Enzymes (LEB/CGP) (03/02/2018 6:26 AM EDT) Troponin-T <0.01 0.00 - 0.00 ng/mL [facility] Comment: The 99th percentile for Troponin T is less than 0.01 ng/mL, any detectable cTnT concentration using this assay should be considered elevated. According to the third universal definition of myocardial infarction the following criteria with a clinical presentation consistent with acute myocardial ischemia meets the diagnosis for a myocardial infarction (NH). Detection of a rise and/or fall of cTnT, with at least one value greater than the 99th percentile (> or = 0.01) and with at least one of the following ?? Symptoms of ischemia ?? New or presumed new significant WW-ubepzgy-P wave (ST-T) changes or new left bundle [...] additional sample may be indicated. Reference: Third [place] Definition of Myocardial Infarction. Journal of the [employer] 2012;60:1581-98 Creatine Kinase 45 0 - 200 unit/L [facility] Blood specimen (specimen) 03/02/2018 6:26 AM EDT 03/02/2018 6:41 AM EDT Narrative Resulting Agency Comment Spec In Lab Reba Linton MD CHEMISTRY ORDERA BLES Performing Organization Address City/[facility]/ZIP Co de Phone Number [facility] [place] [address] * EKG 12 Lead (03/01/2018 9:20 AM EDT) Ventricular rate 98 BPM MUSE SYSTEM Atrial Rate 98 BPM MUSE SYSTEM P-R Interval 146 ms MUSE SYSTEM QRS Duration 102 ms MUSE SYSTEM Q-T Interval 350 ms MUSE SYSTEM QTC Calculated (Bezet) 446 ms MUSE SYSTEM Calculated P Deeth 26 degrees MUSE SYSTEM Calculated R Deeth 62 degrees MUSE SYSTEM Calculated T Deeth 40 degrees MUSE SYSTEM INTERPRETATION Normal sinus rhythm T wave abnormality, consider lateral ischemia Abnormal ECG When compared with ECG of 28-FEB-2018 11:26, No significant change was found Confirmed by MD Hernandez, Sacha ([id number]) on 03/01/2018 11:01:50 AM MUSE SYSTEM 03/01/2018 9:20 AM EDT 03/01/2018 11:01 AM EDT Reba Linton MD ECG ORDERABLES Performing Organization Address City/[facility]/ZIP Co de Phone Number MUSE SYSTEM * LDL Cholesterol, Direct (03/01/2018 8:35 AM EDT) LDL Cholesterol, Direct 31 mg/dL [facility] Comment: Lowest Risk: <100 mg/dL Lower Risk: 100-129 mg/dL Borderline High Risk: 130-159 mg/dL High Risk: 160-189 mg/dL Very High Risk: >uh=058 mg/dL Blood specimen (specimen) 03/01/2018 8:35 AM EDT 03/01/2018 8:48 AM EDT Narrative Resulting Agency Comment Spec In Lab Reba Linton MD CHEMISTRY ORDERA BLES Performing Organization Address City/[facility]/ZIP Co de Phone Number [facility] [place] [address] * Differential, Automated (03/01/2018 8:35 AM EDT) Neutrophil % 39.2 % [facility] Neutrophil Absolute 2.12 1.70 - 6.10 x10(3)/[facility] LAB[facility]ATORY Lymph % 45.9 % [facility] Lymphocytes Abs 2.5 0.9 - 3.2 x10(3)/[facility] Monocyte % 10.3 % [facility] Monocyte Abs 0.6 0.3 - 0.9 x10(3)/[facility] Eos % 3.3 % [facility] Eosinophils Abs 0.2 0.0 - 0.4 x10(3)/[facility] Basophil % 0.7 % [facility] Baso Absolute 0.0 0.0 - 0.1 x10(3)/[facility] Immature Gran % 0.60 % [facility] Comment: Immature granulocytes(IG's)percentage and absolute count will include metamyelocytes, myelocytes, and promyelocytes. Blood smears from CBCs yielding IG's will be scanned manually for concordance. If this scan disagrees with the automated IG or if promyelocytes are noted, a manual differential will be performed. Immature Gran Absolute 0.03 0.00 - 0.04 x10(3)/[facility] Blood specimen (specimen) 03/01/2018 8:35 AM EDT 03/01/2018 8:43 AM EDT Narrative Resulting Agency Comment Spec In Lab Reba Linton MD HEMATOLOGY ORDER LYNDSEY Performing Organization Address City/[facility]/ZIP Co de Phone Number [facility] [place] [address] * (ABNORMAL) Hemogram (03/01/2018 8:35 AM EDT) White Blood Cell 5.4 4.0 - 9.5 x10(3)/[facility] LABORATORY Red Blood Cell 4.89 4.58 - 5.54 x10(6)/[facility] Hemoglobin 11.9(L) 13.7 - 16.5 gm/dL [facility] Hematocrit 36.7(L) 40.5 - 48.5 % [facility] Mean Cell Volume 75.1(L) 82.9 - 93.1 [facility] LAB[facility]ATORY Mean Cell Hemoglobin 24.3(L) 27.5 - 32.1 pg [facility] Mean Cell Hemoglobin Concentration 32.4 32.0 - 35.7 gm/dL [facility] Platelet 272 145 - 357 x10(3)/[facility] LABORATORY RDW Standard Deviation 47.2(H) 36.0 - 45.0 [facility] LAB[facility]ATORY RDW coefficient of variation 17.6(H) 11.4 - 13.8 % [facility] Mean Platelet Volume 10.5 7.6 - 12.9 [facility] LAB[facility]ATORY NRBC% auto 0.0 % [facility] NRBC Absolute 0.000 0.000 - 0.000 x10(3)/[facility] LAB[facility]ORY Blood specimen (specimen) 03/01/2018 8:35 AM EDT 03/01/2018 8:43 AM EDT Narrative Resulting Agency Comment Spec In Lab Reba Linton MD HEMATOLOGY ORDER LYNDSEY [facility] [place] [address] * Lipid Panel (03/01/2018 8:35 AM EDT) Cholesterol, Total 273 mg/dL [facility] Comment: Lower Risk: <200 mg/dL Average Risk: 200-239 mg/dL Higher Risk: >xd=101 mg/dL Triglyceride 2,210 mg/dL [facility] Comment: Average Risk/Lower Risk: <150 mg/dL Borderline High Risk: 150-199 mg/dL High Risk: 200-499 mg/dL Very High Risk: >jq=945 mg/dL HDL Cholesterol 13 mg/dL [facility] Comment: Males: ?? Higher Risk: <40 mg/dL Females: ?? HIgher Risk: <50 mg/dL LDL Cholesterol Not Calculated [facility] Comment: Lowest Risk: <100 mg/dL Lower Risk: 100-129 mg/dL Borderline High Risk: 130-159 mg/dL High Risk: 160-189 mg/dL Very High Risk: >ri=282 mg/dL Since a calculated LDL value is not valid for triglycerides greater than 400 mg/dl, a direct LDL determination is performed instead. Lowest Risk: <100 mg/dL Lower Risk: 100-129 mg/dL Borderline High Risk: 130-159 mg/dL High Risk: 160-189 mg/dL Very High Risk: >bx=562 mg/dL Corrected from -182 mg/dL [NA] on 03/01/18 09:31 by Belgica Reilly. Cholesterol/HDL Ratio 21.0 ratio [facility] Lipid Interpretation See Note [facility] Comment: Lipid management should be guided by a patient? s ASCVD risk, goals and preferences. ACC/AHA Guidelines recommend high intensity statin if clinical ASCVD or LDL greater than or equal to 190 mg/dL. [email or web address] Adults aged 40-75 with LDL 70-189 mg/dL should have their 10 year ASCVD risk estimated with the ACC/AHA ASCVD risk cat scan technologist http://tools.acc.org/ZQMYE-Jukn-Qacbzmyxg/ Statin should be discussed if risk greater [...] Lab Reba Linton MD CHEMISTRY ORDERA BLES [facility] [place] [address] * (ABNORMAL) Basic Metabolic Panel (non-fasting) (03/01/2018 8:35 AM EDT) Glucose 109 65 - 199 mg/dL [facility] Comment:Diabetes: >=200 mg/d L plus symptoms Blood Urea Nitrogen 22(H) 10 - 20 mg/dL [facility] Creatinine 0.96 0.80 - 1.50 mg/dL [facility] Comment:Specimen ultracentri fuged due to gross lipemia Sodium 148(H) 135 - 145 mmol/L [facility] Comment:Specimen ultracentri fuged due to gross lipemia Potassium Not Perf 3.5 - 5.0 [facility] Comment: Unable to quantitate due to sample hemolysis. ??Sample redraw suggested. ??Called to Suzi 03/01/18 09:21. mkf Please note: ??Patients with WBC >100,000 may have falsely elevated Potassium levels. ??For accurate Potassium quantification in these patients send serum separator tube (gold top) for subsequent determinations. ??Contact the Clinical Chemistry Laboratory if there are any questions. Chloride 107 98 - 107 mmol/L [facility] Carbon Dioxide 26 22 - 31 mmol/L [facility] Anion Gap 15 5 - 15 mmol/L [facility] Calcium 9.5 8.5 - 10.5 mg/dL [facility] Est Glomerular Filtration Rate 108 >=60 mL/min/1. 73 m?? [facility] Comment: The eGFR was calculated using the CKD-EPI equation. As with all creatinine based estimates of kidney function, eGFR values calculated with the CKD-EPI equation are not accurate in patients with acute kidney failure, extremes of body mass or the acutely ill. [email or web address] eGFR 125 >=60 mL/min/1. 73 m?? [facility] Comment: The eGFR was calculated using the CKD-EPI equation. As with all creatinine based estimates of kidney function, eGFR values calculated with the CKD-EPI equation are not accurate in patients with acute kidney failure, extremes of body mass or the acutely ill. [email or web address] Blood specimen (specimen) 03/01/2018 8:35 AM EDT 03/01/2018 8:42 AM EDT Narrative Resulting Agency Comment Spec In Lab Reba Linton MD CHEMISTRY ORDERA BLES Performing Organization Address [facility] Co de Phone Number [facility] [place] [address] * Blood culture (03/01/2018 8:35 AM EDT) Blood Culture No growth at 5 days. [facility] Blood specimen (specimen) 03/01/2018 8:35 AM EDT 03/01/2018 9:34 AM EDT Narrative Resulting Agency Comment Spec In Lab Reba Linton MD MICROBIOLOGY - B LOOD ORDERABLES Performing Organization Address [facility] Co de Phone Number [facility] [place] [address] * Potassium (02/28/2018 4:20 PM EDT) Potassium 4.1 3.5 - 5.0 mmol/L [facility] Comment: Specimen ultracentrifuged due to gross [...] MD CHEMISTRY ORDERA BLES Performing Organization Address [facility]/ZIP Co de Phone Number [facility] [place] [address] * Lavender Tube HOLD (02/28/2018 4:20 PM EDT) Lavender Hold Sample in lab. [facility] Blood specimen (specimen) Venous Draw / Unknown 02/28/2018 4:20 PM EDT 02/28/2018 4:33 PM EDT Reba Linton MD HEMATOLOGY ORDER LYNDSEY Performing Organization Address [facility] Co de Phone Number [facility] [place] [address] * Blood culture (02/28/2018 4:20 PM EDT) Blood Culture No growth at 5 days. [facility] Blood specimen (specimen) 02/28/2018 4:20 PM EDT 02/28/2018 5:06 PM EDT Narrative Resulting Agency Comment Spec In Lab Reba Linton MD MICROBIOLOGY - B LOOD ORDERABLES Performing Organization Address [facility] Co de Phone Number [facility] [place] [address] * (ABNORMAL) Basic Metabolic Panel (non-fasting) (02/28/2018 4:20 PM EDT) Glucose 129 65 - 199 mg/dL [facility] Comment:Diabetes: >=200 mg/d L plus symptoms Blood Urea Nitrogen 15 10 - 20 mg/dL [facility] Creatinine 1.02 0.80 - 1.50 mg/dL [facility] Comment:Specimen ultracentri fuged due to gross lipemia Sodium 147(H) 135 - 145 mmol/L [facility] Comment:Specimen ultracentri fuged due to gross lipemia Potassium Not Perf 3.5 - 5.0 [facility] Comment: Unable to quantitate due to sample hemolysis. ??Sample redraw suggested. called to sarika gomez 02/28/18 17:16 Please note: ??Patients with WBC >100,000 may have falsely elevated Potassium levels. ??For accurate Potassium quantification in these patients send serum separator tube (gold top) for subsequent determinations. ??Contact the Clinical Chemistry Laboratory if there are any questions. Chloride 109(H) 98 - 107 mmol/L [facility] Comment:Specimen ultracentri fuged due to gross lipemia Carbon Dioxide 21(L) 22 - 31 mmol/L [facility] Anion Gap 17(H) 5 - 15 mmol/L [facility] Calcium 9.3 8.5 - 10.5 mg/dL [facility] LABORATORY Est Glomerular Filtration Rate 100 >=60 mL/min/1. 73 m?? [facility] Comment: The eGFR was calculated using the CKD-EPI equation. As with all creatinine based estimates of kidney function, eGFR values calculated with the CKD-EPI equation are not accurate in patients with acute kidney failure, extremes of body mass or the acutely ill. [email or web address] eGFR 116 >=60 mL/min/1. 73 m?? [facility] Comment: The eGFR was calculated using the CKD-EPI equation. As with all creatinine based estimates of kidney function, eGFR values calculated with the CKD-EPI equation are not accurate in patients with acute kidney failure, extremes of body mass or the acutely ill. [email or web address] TULSAnkf Blood specimen (specimen) 02/28/2018 4:20 PM EDT 02/28/2018 4:32 PM EDT Narrative Resulting Agency Comment Spec In Lab Reba Linton MD CHEMISTRY ORDERA BLES [facility] [place] [address] * Cardiac Enzymes (LEB/CGP) (02/28/2018 4:20 PM EDT) [facility] Troponin-T <0.01 0.00 - 0.00 ng/mL [facility] Comment: The 99th percentile for Troponin T is less than 0.01 ng/mL, any detectable cTnT concentration using this assay should be considered elevated. According to the third universal definition of myocardial infarction the following criteria with a clinical presentation consistent with acute myocardial ischemia meets the diagnosis for a myocardial infarction (NH). Detection of a rise and/or fall of cTnT, with at least one value greater than the 99th percentile (> or = 0.01) and with at least one of the following ?? Symptoms of ischemia ?? New or presumed new significant VL-mjpodyk-P wave (ST-T) changes or new left bundle [...] additional sample may be indicated. Reference: Third [place] Definition of Myocardial Infarction. Journal of the [employer] 2012;60:1581-98 Creatine Kinase 69 0 - 200 unit/L [facility] Blood specimen (specimen) 02/28/2018 4:20 PM EDT 02/28/2018 4:32 PM EDT Narrative Resulting Agency Comment Spec In Lab Reba Linton MD CHEMISTRY ORDERA BLES [facility] [place] [address] * (ABNORMAL) Urine culture (02/28/2018 3:53 PM EDT) [facility] Urine Culture 10,000-49,000 cfu/ml Citrobacter koseri (Citrobacter diversus)(A) [facility] Organism Citrobacter koseri (Citrobacter diversus)(A) [facility] Urine specimen obtained by clean catch [...] Sensitive Reba Linton MD MICROBIOLOGY - [facility] ORDERABLES [facility] [place] [address] * (ABNORMAL) Urinalysis Microscopic Exam (02/28/2018 3:53 PM EDT) RBC, Urine 2 0 - 3 /HPF [facility] WBC, Urine 24(H) 0 - 3 /HPF [facility] Squamous Epithelial Cells Raw Data, Urine <1 <=4 /HPF [facility] Urine specimen obtained by clean catch procedure (specimen) 02/28/2018 3:53 PM EDT 02/28/2018 4:09 PM EDT Narrative Resulting Agency Comment Spec In Lab Reba Linton MD URINE ORDERABLES [facility] [place] [address] * Urine Hold (02/28/2018 3:53 PM EDT) Hold, Urine Sample in lab. [facility] Urine specimen (specimen) Urine / Unknown 02/28/2018 3:53 PM EDT 02/28/2018 4:09 PM EDT Reba Linton MD URINE ORDERABLES Performing Organization Address [facility] Co de Phone Number [facility] [place] [address] * (ABNORMAL) Urinalysis with reflex Culture (02/28/2018 3:53 PM EDT) Glucose, Urine Dipstick Negative Negative mg/dL [facility] Protein, Urine Dipstick Negative Negative mg/dL [facility] Bilirubin, Urine Dipstick Negative Negative mg/dL [facility] Comment: Clinical correlation required for positive Urine Bilirubin results as false positive may occur with some drugs and drug related products. If a false positive is suspected a serum total bilirubin should be considered if clinically indicated. Urobilinogen, Urine Dipstick Normal Normal mg/dL [facility] pH, Urn (dipstick) 6.0 5.0 - 8.0 [facility] Blood, Urine Dipstick Negative Negative mg/dL [facility] Ketone, Urine Dipstick Negative Negative mg/dL [facility] Nitrite, Urine Dipstick Negative Negative [facility] Leukocytes, Urine Dipstick Small(A) Negative [facility] Appearance, Urine Dipstick Clear Clear [facility] Specific [place] Urine Automated 1.013 1.002 - 1.030 [facility] Color, Urine Dipstick Yellow Yellow [facility] Reflex to Culture Yes [facility] Urine specimen obtained by clean catch procedure (specimen) 02/28/2018 3:53 PM EDT 02/28/2018 4:09 PM EDT Narrative Resulting Agency Comment Spec In Lab Reba Linton MD URINE ORDERABLES Performing Organization Address City/[facility]/ZIP Co de Phone Number [facility] [place] [address] * EKG 12 Lead (02/28/2018 11:26 AM EDT) Ventricular rate 112 BPM MUSE SYSTEM Atrial Rate 112 BPM MUSE SYSTEM P-R Interval 138 ms MUSE SYSTEM QRS Duration 84 ms MUSE SYSTEM Q-T Interval 326 ms MUSE SYSTEM QTC Calculated (Bezet) 444 ms MUSE SYSTEM Calculated P Deeth 15 degrees MUSE SYSTEM Calculated R Deeth 56 degrees MUSE SYSTEM Calculated T Deeth 43 degrees MUSE SYSTEM INTERPRETATION Sinus tachycardia Nonspecific T wave abnormality Abnormal ECG When compared with ECG of 28-FEB-2018 05:43, (unconfirmed) Non-specific change in ST segment in Anterior leads Nonspecific T wave abnormality has replaced inverted T waves in Inferior leads Confirmed by MD Gene, Constantino Jacobs ([id number]) on 02/28/2018 3:58:07 PM MUSE SYSTEM 02/28/2018 11:2 6 AM EDT 02/28/2018 3:58 PM EDT Reba Linton MD ECG ORDERABLES Performing Organization Address City/[facility]/ZIP Co de Phone Number MUSE SYSTEM * Cardiac Enzymes (LEB/CGP) (02/28/2018 9:26 AM EDT) Troponin-T Not Perf 0.00 - 0.00 [facility] Comment: Unable to quantitate due to [...] meets the diagnosis for a myocardial infarction (NH). Detection of a rise and/or fall of cTnT, with at least one value greater than the 99th percentile (> or = 0.01) and with at least one of the following ?? Symptoms of ischemia ?? New or presumed new significant AV-dwsntxb-E wave (ST-T) changes or new left bundle [...] additional sample may be indicated. Reference: Third [place] Definition of Myocardial Infarction. Journal of the [employer] 2012;60:1581-98 Creatine Kinase Not Perf 0 - 200 [facility] Comment: Unable to quantitate due to sample hemolysis. ??Sample redraw suggested. Called by: loyda, Read back by: noel urbano, Date/Time:02/28/18 10:14. Blood specimen (specimen) Venous Draw / Unknown 02/28/2018 9:26 AM EDT 02/28/2018 9:32 AM EDT Narrative Resulting Agency Comment Spec In Lab Reba Linton MD CHEMISTRY ORDERA BLES [facility] [place] [address] * (ABNORMAL) Basic Metabolic Panel (non-fasting) (02/28/2018 9:26 AM EDT) Glucose 208(H) 65 - 199 mg/dL [facility] Comment: Specimen ultracentrifuged due to gross lipemia Diabetes: >=200 mg/dL plus symptoms Blood Urea Nitrogen 13 10 - 20 mg/dL [facility] Comment:Specimen ultracentri fuged due to gross lipemia Creatinine 0.89 0.80 - 1.50 mg/dL [facility] Comment:Specimen ultracentri fuged due to gross lipemia Sodium 150(H) 135 - 145 mmol/L [facility] Comment:Specimen ultracentri fuged due to gross lipemia Potassium Not Perf 3.5 - 5.0 [facility] Comment: Unable to quantitate due to [...] questions. Chloride 112(H) 98 - 107 mmol/L [facility] Comment:Specimen ultracentri fuged due to gross lipemia Carbon Dioxide 23 22 - 31 mmol/L [facility] Comment:Specimen ultracentri fuged due to gross lipemia Anion Gap 15 5 - 15 mmol/L [facility] Calcium 9.7 8.5 - 10.5 mg/dL [facility] Comment:Specimen ultracentri fuged due to gross lipemia Est Glomerular Filtration Rate 117 >=60 mL/min/1. 73 m?? [facility] Comment: The eGFR was calculated using the CKD-EPI equation. As with all creatinine based estimates of kidney function, eGFR values calculated with the CKD-EPI equation are not accurate in patients with acute kidney failure, extremes of body mass or the acutely ill. [email or web address] eGFR 136 >=60 mL/min/1. 73 m?? [facility] Comment: The eGFR was calculated using the CKD-EPI equation. As with all creatinine based estimates of kidney function, eGFR values calculated with the CKD-EPI equation are not accurate in patients with acute kidney failure, extremes of body mass or the acutely ill. [email or web address]ULSAnkf Blood specimen (specimen) 02/28/2018 9:26 AM EDT 02/28/2018 9:32 AM EDT Narrative Resulting Agency Comment Spec In Lab Mahathi S Komaragiri MD CHEMISTRY ORDERA BLES Performing Organization Address [facility] Co de Phone Number [facility] [place] [address] * EKG 12 Lead (02/28/2018 5:43 AM EDT) Ventricular rate 127 BPM MUSE SYSTEM Atrial Rate 127 BPM MUSE SYSTEM P-R Interval 136 ms MUSE SYSTEM QRS Duration 94 ms MUSE SYSTEM Q-T Interval 316 ms MUSE SYSTEM QTC Calculated (Bezet) 459 ms MUSE SYSTEM Calculated P Deeth 41 degrees MUSE SYSTEM Calculated R Deeth 72 degrees MUSE SYSTEM Calculated T Deeth 40 degrees MUSE SYSTEM INTERPRETATION Sinus tachycardia ST & T wave abnormality, consider anterolateral ischemia T wave abnormality, consider inferior ischemia Abnormal ECG When compared with ECG of 05-DEC-2017 17:29, Non-specific change in ST segment in Anterior leads T wave inversion now evident in Inferior leads Nonspecific T wave abnormality now evident in Anterior leads Confirmed by MD Gene, Constantino Jacobs ([id number]) on 02/28/2018 3:57:48 PM MUSE SYSTEM 02/28/2018 5:43 AM EDT 02/28/2018 3:57 PM EDT Brenda Greco APRN ECG ORDERABLES Performing Organization Address [facility] Phone Number MUSE SYSTEM * Potassium (02/27/2018 5:58 AM EDT) [facility] Potassium 4.3 3.5 - 5.0 mmol/L [facility] Comment: Please note: ??Patients with [...] In Lab Abimbola Goldstein MD CHEMISTRY ORDERABLES Performing Organization Address [facility] Co de Phone Number [facility] [place] [address] * (ABNORMAL) Basic Metabolic Panel (non-fasting) (02/27/2018 4:14 AM EDT) Glucose 244(H) 65 - 199 mg/dL [facility] Comment: [facility] Diabetes: >=200 mg/dL plus symptoms Blood Urea Nitrogen 12 10 - 20 mg/dL [facility] Creatinine 0.63(L) 0.80 - 1.50 mg/dL [facility] Sodium 146(H) 135 - 145 mmol/L [facility] Potassium Not Perf 3.5 - 5.0 [facility] Comment: Specimen hemolyzed. Called [facility]: [facility], Read back by: Emerald Rasheed, Date/Time:02/27/18 05:43. Please note: ??Patients with WBC >100,000 may have falsely elevated Potassium levels. ??For accurate Potassium quantification in these patients send serum separator tube (gold top) for subsequent determinations. ??Contact the Clinical Chemistry Laboratory if there are any questions. Chloride 111(H) 98 - 107 mmol/L [facility] Carbon Dioxide 23 22 - 31 mmol/L [facility] Anion Gap 12 5 - 15 mmol/L [facility] Calcium 9.7 8.5 - 10.5 mg/dL [facility] Est Glomerular Filtration Rate 135 >=60 mL/min/1. 73 m?? [facility] Comment: The eGFR was calculated using the CKD-EPI equation. As with all creatinine based estimates of kidney function, eGFR values calculated with the CKD-EPI equation are not accurate in patients with acute kidney failure, extremes of body mass or the acutely ill. [email or web address] eGFR 157 >=60 mL/min/1. 73 m?? [facility] Comment: The eGFR was calculated using the CKD-EPI equation. As with all creatinine based estimates of kidney function, eGFR values calculated with the CKD-EPI equation are not accurate in patients with acute kidney failure, extremes of body mass or the acutely ill. [email or web address] Blood specimen (specimen) 02/27/2018 4:14 AM EDT 02/27/2018 4:55 AM EDT Narrative Resulting Agency Comment Spec In Lab Abimbola Goldstein MD CHEMISTRY ORDERABLES [facility] [place] [address] * (ABNORMAL) Basic Metabolic Panel (non-fasting) (02/24/2018 5:25 AM EDT) Glucose 89 65 - 199 mg/dL [facility] Comment:Diabetes: >=200 mg/d L plus symptoms Blood Urea Nitrogen 22(H) 10 - 20 mg/dL [facility] Creatinine 0.79(L) 0.80 - 1.50 mg/dL [facility] Sodium 146(H) 135 - 145 mmol/L [facility] Potassium 3.5 3.5 - 5.0 mmol/L [facility] Comment: Please note: ??Patients with WBC >100,000 may have falsely elevated Potassium levels. ??For accurate Potassium quantification in these patients send serum separator tube (gold top) for subsequent determinations. ??Contact the Clinical Chemistry Laboratory if there are any questions. Chloride 106 98 - 107 mmol/L [facility] Carbon Dioxide 27 22 - 31 mmol/L [facility] Anion Gap 13 5 - 15 mmol/L [facility] Calcium 9.7 8.5 - 10.5 mg/dL [facility] Est Glomerular Filtration Rate 123 >=60 mL/min/1. 73 m?? [facility] Comment: The eGFR was calculated using the CKD-EPI equation. As with all creatinine based estimates of kidney function, eGFR values calculated with the CKD-EPI equation are not accurate in patients with acute kidney failure, extremes of body mass or the acutely ill. [email or web address] eGFR 143 >=60 mL/min/1. 73 m?? [facility] Comment: The eGFR was calculated using the CKD-EPI equation. As with all creatinine based estimates of kidney function, eGFR values calculated with the CKD-EPI equation are not accurate in patients with acute kidney failure, extremes of body mass or the acutely ill. [email or web address] Blood specimen (specimen) 02/24/2018 5:25 AM EDT 02/24/2018 5:39 AM EDT Narrative Resulting Agency Comment Spec In Lab Abimbola Goldstein MD CHEMISTRY ORDERABLES [facility] [place] [address] * (ABNORMAL) Basic Metabolic Panel (non-fasting) (02/23/2018 9:10 AM EDT) Glucose 106 65 - 199 mg/dL [facility] Comment:Diabetes: >=200 mg/d L plus symptoms Blood Urea Nitrogen 19 10 - 20 mg/dL [facility] Creatinine 0.79(L) 0.80 - 1.50 mg/dL [facility] Sodium 150(H) 135 - 145 mmol/L [facility] Potassium 3.9 3.5 - 5.0 mmol/L [facility] Comment: Please note: ??Patients with WBC >100,000 may have falsely elevated Potassium levels. ??For accurate Potassium quantification in these patients send serum separator tube (gold top) for subsequent determinations. ??Contact the Clinical Chemistry Laboratory if there are any questions. Chloride 111(H) 98 - 107 mmol/L [facility] Carbon Dioxide 24 22 - 31 mmol/L [facility] Anion Gap 15 5 - 15 mmol/L [facility] Calcium 10.3 8.5 - 10.5 mg/dL [facility] Est Glomerular Filtration Rate 123 >=60 mL/min/1. 73 m?? [facility] Comment: The eGFR was calculated using the CKD-EPI equation. As with all creatinine based estimates of kidney function, eGFR values calculated with the CKD-EPI equation are not accurate in patients with acute kidney failure, extremes of body mass or the acutely ill. [email or web address] eGFR 143 >=60 mL/min/1. 73 m?? [facility] Comment: The eGFR was calculated using the CKD-EPI equation. As with all creatinine based estimates of kidney function, eGFR values calculated with the CKD-EPI equation are not accurate in patients with acute kidney failure, extremes of body mass or the acutely ill. [email or web address] Blood specimen (specimen) 02/23/2018 9:10 AM EDT 02/23/2018 9:19 AM EDT Narrative Resulting Agency Comment Spec In Lab Maldonado Salazar MD CHEMISTRY ORDERABLES [facility] [place] [address] * (ABNORMAL) Basic Metabolic Panel (non-fasting) (02/20/2018 5:38 AM EDT) Glucose 125 65 - 199 mg/dL [facility] Comment:Diabetes: >=200 mg/d L plus symptoms Blood Urea Nitrogen 15 10 - 20 mg/dL [facility] Creatinine 0.68(L) 0.80 - 1.50 mg/dL [facility] Sodium 142 135 - 145 mmol/L [facility] Potassium 3.4(L) 3.5 - 5.0 mmol/L [facility] Comment: Please note: ??Patients with WBC >100,000 may have falsely elevated Potassium levels. ??For accurate Potassium quantification in these patients send serum separator tube (gold top) for subsequent determinations. ??Contact the Clinical Chemistry Laboratory if there are any questions. Chloride 106 98 - 107 mmol/L [facility] Carbon Dioxide 24 22 - 31 mmol/L [facility] Anion Gap 12 5 - 15 mmol/L [facility] Calcium 9.7 8.5 - 10.5 mg/dL [facility] Est Glomerular Filtration Rate 131 >=60 mL/min/1. 73 m?? [facility] Comment: The eGFR was calculated using the CKD-EPI equation. As with all creatinine based estimates of kidney function, eGFR values calculated with the CKD-EPI equation are not accurate in patients with acute kidney failure, extremes of body mass or the acutely ill. [email or web address] eGFR 152 >=60 mL/min/1. 73 m?? [facility] Comment: The eGFR was calculated using the CKD-EPI equation. As with all creatinine based estimates of kidney function, eGFR values calculated with the CKD-EPI equation are not accurate in patients with acute kidney failure, extremes of body mass or the acutely ill. [email or web address] Blood specimen (specimen) 02/20/2018 5:38 AM EDT 02/20/2018 5:45 AM EDT Narrative Resulting Agency Comment Spec In Lab Maldonado Salazar MD CHEMISTRY ORDERABLES [facility] [place] [address] * (ABNORMAL) Basic Metabolic Panel (non-fasting) (02/17/2018 11:29 AM EDT) Glucose 82 65 - 199 mg/dL [facility] Comment:Diabetes: >=200 mg/d L plus symptoms Blood Urea Nitrogen 17 10 - 20 mg/dL [facility] Creatinine 0.78(L) 0.80 - 1.50 mg/dL [facility] Sodium 144 135 - 145 mmol/L [facility] Potassium 4.0 3.5 - 5.0 mmol/L [facility] Comment: Please note: ??Patients with WBC >100,000 may have falsely elevated Potassium levels. ??For accurate Potassium quantification in these patients send serum separator tube (gold top) for subsequent determinations. ??Contact the Clinical Chemistry Laboratory if there are any questions. Chloride 105 98 - 107 mmol/L [facility] Carbon Dioxide 20(L) 22 - 31 mmol/L [facility] Anion Gap 19(H) 5 - 15 mmol/L [facility] Calcium 9.7 8.5 - 10.5 mg/dL [facility] Est Glomerular Filtration Rate 124 >=60 mL/min/1. 73 m?? [facility] Comment: The eGFR was calculated using the CKD-EPI equation. As with all creatinine based estimates of kidney function, eGFR values calculated with the CKD-EPI equation are not accurate in patients with acute kidney failure, extremes of body mass or the acutely ill. [email or web address] eGFR 143 >=60 mL/min/1. 73 m?? [facility] Comment: The eGFR was calculated using the CKD-EPI equation. As with all creatinine based estimates of kidney function, eGFR values calculated with the CKD-EPI equation are not accurate in patients with acute kidney failure, extremes of body mass or the acutely ill. [email or web address] Blood specimen (specimen) 02/17/2018 11:29 AM EDT 02/17/2018 12:22 PM EDT Narrative Resulting Agency Comment Spec In Lab Maldonado Salazar MD CHEMISTRY ORDERABLES [facility] [place] [address] * Basic Metabolic Panel (non-fasting) (02/16/2018 1:55 PM EDT) Glucose 150 65 - 199 mg/dL [facility] Comment:Diabetes: >=200 mg/d L plus symptoms Blood Urea Nitrogen 20 10 - 20 mg/dL [facility] Creatinine 0.83 0.80 - 1.50 mg/dL [facility] Sodium 143 135 - 145 mmol/L [facility] Potassium 3.7 3.5 - 5.0 mmol/L [facility] Comment: Please note: ??Patients with WBC >100,000 may have falsely elevated Potassium levels. ??For accurate Potassium quantification in these patients send serum separator tube (gold top) for subsequent determinations. ??Contact the Clinical Chemistry Laboratory if there are any questions. Chloride 105 98 - 107 mmol/L [facility] Carbon Dioxide 24 22 - 31 mmol/L [facility] Anion Gap 14 5 - 15 mmol/L [facility] Calcium 9.3 8.5 - 10.5 mg/dL [facility] Est Glomerular Filtration Rate 121 >=60 mL/min/1. 73 m?? [facility] Comment: The eGFR was calculated using the CKD-EPI equation. As with all creatinine based estimates of kidney function, eGFR values calculated with the CKD-EPI equation are not accurate in patients with acute kidney failure, extremes of body mass or the acutely ill. [email or web address] eGFR 140 >=60 mL/min/1. 73 m?? [facility] Comment: The eGFR was calculated using the CKD-EPI equation. As with all creatinine based estimates of kidney function, eGFR values calculated with the CKD-EPI equation are not accurate in patients with acute kidney failure, extremes of body mass or the acutely ill. [email or web address] Blood specimen (specimen) 02/16/2018 1:55 PM EDT 02/16/2018 2:11 PM EDT Narrative Resulting Agency Comment Spec In Lab Maldonado Salazar MD CHEMISTRY ORDERABLES [facility] [place] [address] * (ABNORMAL) Basic Metabolic Panel (non-fasting) (02/15/2018 9:37 AM EDT) Glucose 90 65 - 199 mg/dL [facility] Comment:Diabetes: >=200 mg/d L plus symptoms Blood Urea Nitrogen 16 10 - 20 mg/dL [facility] Creatinine 0.88 0.80 - 1.50 mg/dL [facility] Sodium 150(H) 135 - 145 mmol/L [facility] Potassium 4.0 3.5 - 5.0 mmol/L [facility] Comment: Please note: ??Patients with WBC >100,000 may have falsely elevated Potassium levels. ??For accurate Potassium quantification in these patients send serum separator tube (gold top) for subsequent determinations. ??Contact the Clinical Chemistry Laboratory if there are any questions. Chloride 111(H) 98 - 107 mmol/L [facility] Carbon Dioxide 21(L) 22 - 31 mmol/L [facility] Anion Gap 18(H) 5 - 15 mmol/L [facility] Calcium 9.9 8.5 - 10.5 mg/dL [facility] Est Glomerular Filtration Rate 118 >=60 mL/min/1. 73 m?? [facility] Comment: The eGFR was calculated using the CKD-EPI equation. As with all creatinine based estimates of kidney function, eGFR values calculated with the CKD-EPI equation are not accurate in patients with acute kidney failure, extremes of body mass or the acutely ill. [email or web address] eGFR 136 >=60 mL/min/1. 73 m?? [facility] Comment: The eGFR was calculated using the CKD-EPI equation. As with all creatinine based estimates of kidney function, eGFR values calculated with the CKD-EPI equation are not accurate in patients with acute kidney failure, extremes of body mass or the acutely ill. [email or web address] Blood specimen (specimen) 02/15/2018 9:37 AM EDT 02/15/2018 10:01 AM EDT Narrative Resulting Agency Comment Spec In Lab Maldonado Salazar MD CHEMISTRY ORDERABLES [facility] [place] [address] * (ABNORMAL) Basic Metabolic Panel (non-fasting) (02/14/2018 11:38 AM EDT) Glucose 261(H) 65 - 199 mg/dL [facility] Comment:Diabetes: >=200 mg/d L plus symptoms Blood Urea Nitrogen 14 10 - 20 mg/dL [facility] Creatinine 0.89 0.80 - 1.50 mg/dL [facility] Sodium 150(H) 135 - 145 mmol/L [facility] Potassium 4.1 3.5 - 5.0 mmol/L [facility] Comment: Please note: ??Patients with WBC >100,000 may have falsely elevated Potassium levels. ??For accurate Potassium quantification in these patients send serum separator tube ([facility] top) for subsequent determinations. ??Contact the Clinical Chemistry Laboratory if there are any questions. Chloride 112(H) 98 - 107 mmol/L [facility] Carbon Dioxide 22 22 - 31 mmol/L [facility] Anion Gap 16(H) 5 - 15 mmol/L [facility] Calcium 9.8 8.5 - 10.5 mg/dL [facility] Est Glomerular Filtration Rate 117 >=60 mL/min/1. 73 m?? [facility] Comment: The eGFR was calculated using the CKD-EPI equation. As with all creatinine based estimates of kidney function, eGFR values calculated with the CKD-EPI equation are not accurate in patients with acute kidney failure, extremes of body mass or the acutely ill. [email or web address] eGFR 136 >=60 mL/min/1. 73 m?? [facility] Comment: The eGFR was calculated using the CKD-EPI equation. As with all creatinine based estimates of kidney function, eGFR values calculated with the CKD-EPI equation are not accurate in patients with acute kidney failure, extremes of body mass or the acutely ill. [email or web address] Blood specimen (specimen) 02/14/2018 11:38 AM EDT 02/14/2018 11:44 AM EDT Narrative Resulting Agency Comment Spec In Lab Maldonado Salazar MD CHEMISTRY ORDERABLES [facility] [place] [address] * (ABNORMAL) Basic Metabolic Panel (non-fasting) (02/14/2018 6:10 AM EDT) Glucose 159 65 - 199 mg/dL [facility] Comment:Diabetes: >=200 mg/d L plus symptoms Blood Urea Nitrogen 15 10 - 20 mg/dL [facility] Creatinine 0.62(L) 0.80 - 1.50 mg/dL [facility] Sodium 151(H) 135 - 145 mmol/L [facility] Potassium 3.8 3.5 - 5.0 mmol/L [facility] Comment: Please note: ??Patients with WBC >100,000 may have falsely elevated Potassium levels. ??For accurate Potassium quantification in these patients send serum separator tube (gold top) for subsequent determinations. ??Contact the Clinical Chemistry Laboratory if there are any questions. Chloride 112(H) 98 - 107 mmol/L [facility] Carbon Dioxide 24 22 - 31 mmol/L [facility] Anion Gap 15 5 - 15 mmol/L [facility] Calcium 10.0 8.5 - 10.5 mg/dL [facility] Est Glomerular Filtration Rate 136 >=60 mL/min/1. 73 m?? [facility] Comment: The eGFR was calculated using the CKD-EPI equation. As with all creatinine based estimates of kidney function, eGFR values calculated with the CKD-EPI equation are not accurate in patients with acute kidney failure, extremes of body mass or the acutely ill. [email or web address] eGFR 158 >=60 mL/min/1. 73 m?? [facility] Comment: The eGFR was calculated using the CKD-EPI equation. As with all creatinine based estimates of kidney function, eGFR values calculated with the CKD-EPI equation are not accurate in patients with acute kidney failure, extremes of body mass or the acutely ill. [email or web address] Blood specimen (specimen) 02/14/2018 6:10 AM EDT 02/14/2018 6:26 AM EDT Narrative Resulting Agency Comment Spec In Lab Christopher Stanley MD CHEMISTRY ORDERABL ES [facility] [place] [address] * (ABNORMAL) Basic Metabolic Panel (non-fasting) (02/11/2018 7:23 AM EDT) Glucose 91 65 - 199 mg/dL [facility] Comment:Diabetes: >=200 mg/d L plus symptoms Blood Urea Nitrogen 15 10 - 20 mg/dL [facility] Creatinine 0.64(L) 0.80 - 1.50 mg/dL [facility] Sodium 145 135 - 145 mmol/L [facility] Potassium 3.5 3.5 - 5.0 mmol/L [facility] Comment: Please note: ??Patients with WBC >100,000 may have falsely elevated Potassium levels. ??For accurate Potassium quantification in these patients send serum separator tube (gold top) for subsequent determinations. ??Contact the Clinical Chemistry Laboratory if there are any questions. Chloride 106 98 - 107 mmol/L [facility] Carbon Dioxide 23 22 - 31 mmol/L [facility] Anion Gap 16(H) 5 - 15 mmol/L [facility] Calcium 9.4 8.5 - 10.5 mg/dL [facility] Est Glomerular Filtration Rate 134 >=60 mL/min/1. 73 m?? [facility] Comment: The eGFR was calculated using the CKD-EPI equation. As with all creatinine based estimates of kidney function, eGFR values calculated with the CKD-EPI equation are not accurate in patients with acute kidney failure, extremes of body mass or the acutely ill. [email or web address] eGFR 156 >=60 mL/min/1. 73 m?? [facility] Comment: The eGFR was calculated using the CKD-EPI equation. As with all creatinine based estimates of kidney function, eGFR values calculated with the CKD-EPI equation are not accurate in patients with acute kidney failure, extremes of body mass or the acutely ill. [email or web address] Blood specimen (specimen) 02/11/2018 7:23 AM EDT 02/11/2018 7:30 AM EDT Narrative Resulting Agency Comment Spec In Lab Christopher Stanley MD CHEMISTRY ORDERABL ES [facility] [place] [address] * (ABNORMAL) Basic Metabolic Panel (non-fasting) (02/08/2018 5:53 AM EDT) Glucose 89 65 - 199 mg/dL [facility] Comment:Diabetes: >=200 mg/d L plus symptoms Blood Urea Nitrogen 17 10 - 20 mg/dL [facility] Creatinine 0.88 0.80 - 1.50 mg/dL [facility] Sodium 144 135 - 145 mmol/L [facility] Potassium 3.6 3.5 - 5.0 mmol/L [facility] Comment: Please note: ??Patients with WBC >100,000 may have falsely elevated Potassium levels. ??For accurate Potassium quantification in these patients send serum separator tube (gold top) for subsequent determinations. ??Contact the Clinical Chemistry Laboratory if there are any questions. Chloride 103 98 - 107 mmol/L [facility] Carbon Dioxide 24 22 - 31 mmol/L [facility] Anion Gap 17(H) 5 - 15 mmol/L [facility] Calcium 9.7 8.5 - 10.5 mg/dL [facility] Est Glomerular Filtration Rate 118 >=60 mL/min/1. 73 m?? [facility] Comment: The eGFR was calculated using the CKD-EPI equation. As with all creatinine based estimates of kidney function, eGFR values calculated with the CKD-EPI equation are not accurate in patients with acute kidney failure, extremes of body mass or the acutely ill. [email or web address] eGFR 136 >=60 mL/min/1. 73 m?? [facility] Comment: The eGFR was calculated using the CKD-EPI equation. As with all creatinine based estimates of kidney function, eGFR values calculated with the CKD-EPI equation are not accurate in patients with acute kidney failure, extremes of body mass or the acutely ill. [email or web address] Blood specimen (specimen) 02/08/2018 5:53 AM EDT 02/08/2018 6:41 AM EDT Narrative Resulting Agency Comment Spec In Lab Fran Gilliam MD CHEMISTRY ORDERABL ES Performing Organization Address [facility] Co de Phone Number [facility] [place] [address] * Lavender Tube HOLD (02/06/2018 11:17 AM EDT) Lavender Hold Sample in lab. [facility] Blood specimen (specimen) Venous Draw / Unknown 02/06/2018 11:17 AM EDT 02/06/2018 11:43 AM EDT Fran Gilliam MD HEMATOLOGY ORDERAB LES Performing Organization Address [facility] Co de Phone Number [facility] [place] [address] * (ABNORMAL) Basic Metabolic Panel (non-fasting) (02/06/2018 11:17 AM EDT) Glucose 104 65 - 199 mg/dL [facility] Comment:Diabetes: >=200 mg/d L plus symptoms Blood Urea Nitrogen 15 10 - 20 mg/dL [facility] Creatinine 0.74(L) 0.80 - 1.50 mg/dL [facility] Sodium 143 135 - 145 mmol/L [facility] Potassium 3.9 3.5 - 5.0 mmol/L [facility] Comment: Please note: ??Patients with WBC >100,000 may have falsely elevated Potassium levels. ??For accurate Potassium quantification in these patients send serum separator tube (gold top) for subsequent determinations. ??Contact the Clinical Chemistry Laboratory if there are any questions. Chloride 102 98 - 107 mmol/L [facility] Carbon Dioxide 23 22 - 31 mmol/L [facility] Anion Gap 18(H) 5 - 15 mmol/L [facility] Calcium 9.6 8.5 - 10.5 mg/dL [facility] Est Glomerular Filtration Rate 126 >=60 mL/min/1. 73 m?? [facility] Comment: The eGFR was calculated using the CKD-EPI equation. As with all creatinine based estimates of kidney function, eGFR values calculated with the CKD-EPI equation are not accurate in patients with acute kidney failure, extremes of body mass or the acutely ill. [email or web address] eGFR 147 >=60 mL/min/1. 73 m?? [facility] Comment: The eGFR was calculated using the CKD-EPI equation. As with all creatinine based estimates of kidney function, eGFR values calculated with the CKD-EPI equation are not accurate in patients with acute kidney failure, extremes of body mass or the acutely ill. [email or web address] Blood specimen (specimen) 02/06/2018 11:17 AM EDT 02/06/2018 11:43 AM EDT Narrative Resulting Agency Comment Spec In Lab Fran Gilliam MD CHEMISTRY ORDERABL ES [facility] [place] [address] * (ABNORMAL) Basic Metabolic Panel (non-fasting) (02/04/2018 6:30 AM EDT) Glucose 93 65 - 199 mg/dL [facility] Comment:Diabetes: >=200 mg/d L plus symptoms Blood Urea Nitrogen 15 10 - 20 mg/dL [facility] Creatinine 0.70(L) 0.80 - 1.50 mg/dL [facility] Sodium 140 135 - 145 mmol/L [facility] Potassium 3.6 3.5 - 5.0 mmol/L [facility] Comment: Please note: ??Patients with WBC >100,000 may have falsely elevated Potassium levels. ??For accurate Potassium quantification in these patients send serum separator tube (gold top) for subsequent determinations. ??Contact the Clinical Chemistry Laboratory if there are any questions. Chloride 100 98 - 107 mmol/L [facility] Carbon Dioxide 23 22 - 31 mmol/L [facility] Anion Gap 17(H) 5 - 15 mmol/L [facility] Calcium 9.8 8.5 - 10.5 mg/dL [facility] Est Glomerular Filtration Rate 129 >=60 mL/min/1. 73 m?? [facility] Comment: The eGFR was calculated using the CKD-EPI equation. As with all creatinine based estimates of kidney function, eGFR values calculated with the CKD-EPI equation are not accurate in patients with acute kidney failure, extremes of body mass or the acutely ill. [email or web address] eGFR 150 >=60 mL/min/1. 73 m?? [facility] Comment: The eGFR was calculated using the CKD-EPI equation. As with all creatinine based estimates of kidney function, eGFR values calculated with the CKD-EPI equation are not accurate in patients with acute kidney failure, extremes of body mass or the acutely ill. [email or web address] Blood specimen (specimen) 02/04/2018 6:30 AM EDT 02/04/2018 6:44 AM EDT Narrative Resulting Agency Comment Spec In Lab Fran Gilliam MD CHEMISTRY ORDERABL ES [facility] [place] [address] * (ABNORMAL) Basic Metabolic Panel (non-fasting) (02/02/2018 9:34 AM EDT) Glucose 107 65 - 199 mg/dL [facility] Comment:Diabetes: >=200 mg/d L plus symptoms Blood Urea Nitrogen 13 10 - 20 mg/dL [facility] Creatinine 0.76(L) 0.80 - 1.50 mg/dL [facility] Sodium 144 135 - 145 mmol/L [facility] Potassium 3.6 3.5 - 5.0 mmol/L [facility] Comment: Please note: ??Patients with WBC >100,000 may have falsely elevated Potassium levels. ??For accurate Potassium quantification in these patients send serum separator tube (gold top) for subsequent determinations. ??Contact the Clinical Chemistry Laboratory if there are any questions. Chloride 104 98 - 107 mmol/L [facility] Carbon Dioxide 24 22 - 31 mmol/L [facility] Anion Gap 16(H) 5 - 15 mmol/L [facility] Calcium 9.8 8.5 - 10.5 mg/dL [facility] Est Glomerular Filtration Rate 125 >=60 mL/min/1. 73 m?? [facility] Comment: The eGFR was calculated using the CKD-EPI equation. As with all creatinine based estimates of kidney function, eGFR values calculated with the CKD-EPI equation are not accurate in patients with acute kidney failure, extremes of body mass or the acutely ill. [email or web address] eGFR 145 >=60 mL/min/1. 73 m?? [facility] Comment: The eGFR was calculated using the CKD-EPI equation. As with all creatinine based estimates of kidney function, eGFR values calculated with the CKD-EPI equation are not accurate in patients with acute kidney failure, extremes of body mass or the acutely ill. [email or web address] Blood specimen (specimen) 02/02/2018 9:34 AM EDT 02/02/2018 9:49 AM EDT Narrative Resulting Agency Comment Spec In Lab Noah Menard MD CHEMISTRY ORDERABLES [facility] [place] [address] * (ABNORMAL) Basic Metabolic Panel (non-fasting) (02/01/2018 11:47 AM EDT) Glucose 119 65 - 199 mg/dL [facility] Comment:Diabetes: >=200 mg/d L plus symptoms Blood Urea Nitrogen 13 10 - 20 mg/dL [facility] Creatinine 0.69(L) 0.80 - 1.50 mg/dL [facility] Sodium 144 135 - 145 mmol/L [facility] Potassium 3.9 3.5 - 5.0 mmol/L [facility] Comment: Please note: ??Patients with WBC >100,000 may have falsely elevated Potassium levels. ??For accurate Potassium quantification in these patients send serum separator tube (gold top) for subsequent determinations. ??Contact the Clinical Chemistry Laboratory if there are any questions. Chloride 106 98 - 107 mmol/L [facility] Carbon Dioxide 22 22 - 31 mmol/L [facility] Anion Gap 16(H) 5 - 15 mmol/L [facility] Calcium 9.7 8.5 - 10.5 mg/dL [facility] Est Glomerular Filtration Rate 130 >=60 mL/min/1. 73 m?? [facility] Comment: The eGFR was calculated using the CKD-EPI equation. As with all creatinine based estimates of kidney function, eGFR values calculated with the CKD-EPI equation are not accurate in patients with acute kidney failure, extremes of body mass or the acutely ill. [email or web address] eGFR 151 >=60 mL/min/1. 73 m?? [facility] Comment: The eGFR was calculated using the CKD-EPI equation. As with all creatinine based estimates of kidney function, eGFR values calculated with the CKD-EPI equation are not accurate in patients with acute kidney failure, extremes of body mass or the acutely ill. [email or web address] Blood specimen (specimen) 02/01/2018 11:47 AM EDT 02/01/2018 12:00 PM EDT Narrative Resulting Agency Comment Spec In Lab Noah Menard MD CHEMISTRY ORDERABLES [facility] [place] [address] * (ABNORMAL) Basic Metabolic Panel (non-fasting) (01/31/2018 6:31 AM EDT) Glucose 99 65 - 199 mg/dL [facility] Comment:Diabetes: >=200 mg/d L plus symptoms Blood Urea Nitrogen 16 10 - 20 mg/dL [facility] Creatinine 0.66(L) 0.80 - 1.50 mg/dL [facility] Sodium 142 135 - 145 mmol/L [facility] Potassium 3.8 3.5 - 5.0 mmol/L [facility] Comment: Please note: ??Patients with WBC >100,000 may have falsely elevated Potassium levels. ??For accurate Potassium quantification in these patients send serum separator tube (gold top) for subsequent determinations. ??Contact the Clinical Chemistry Laboratory if there are any questions. Chloride 105 98 - 107 mmol/L [facility] Carbon Dioxide 22 22 - 31 mmol/L [facility] Anion Gap 15 5 - 15 mmol/L [facility] Calcium 9.6 8.5 - 10.5 mg/dL [facility] Est Glomerular Filtration Rate 132 >=60 mL/min/1. 73 m?? [facility] Comment: The eGFR was calculated using the CKD-EPI equation. As with all creatinine based estimates of kidney function, eGFR values calculated with the CKD-EPI equation are not accurate in patients with acute kidney failure, extremes of body mass or the acutely ill. [email or web address] eGFR 154 >=60 mL/min/1. 73 m?? [facility] Comment: The eGFR was calculated using the CKD-EPI equation. As with all creatinine based estimates of kidney function, eGFR values calculated with the CKD-EPI equation are not accurate in patients with acute kidney failure, extremes of body mass or the acutely ill. [email or web address] Blood specimen (specimen) 01/31/2018 6:31 AM EDT 01/31/2018 6:51 AM EDT Narrative Resulting Agency Comment Spec In Lab Noah Menard MD CHEMISTRY ORDERABLES [facility] [place] [address] * (ABNORMAL) Basic Metabolic Panel (non-fasting) (01/30/2018 4:49 AM EDT) Glucose 98 65 - 199 mg/dL [facility] Comment:Diabetes: >=200 mg/d L plus symptoms Blood Urea Nitrogen 12 10 - 20 mg/dL [facility] Creatinine 0.62(L) 0.80 - 1.50 mg/dL [facility] Sodium 140 135 - 145 mmol/L [facility] Potassium 3.8 3.5 - 5.0 mmol/L [facility] Comment: Please note: ??Patients with WBC >100,000 may have falsely elevated Potassium levels. ??For accurate Potassium quantification in these patients send serum separator tube (gold top) for subsequent determinations. ??Contact the Clinical Chemistry Laboratory if there are any questions. Chloride 104 98 - 107 mmol/L [facility] Carbon Dioxide 21(L) 22 - 31 mmol/L [facility] Anion Gap 15 5 - 15 mmol/L [facility] Calcium 9.9 8.5 - 10.5 mg/dL [facility] Est Glomerular Filtration Rate 136 >=60 mL/min/1. 73 m?? [facility] Comment: The eGFR was calculated using the CKD-EPI equation. As with all creatinine based estimates of kidney function, eGFR values calculated with the CKD-EPI equation are not accurate in patients with acute kidney failure, extremes of body mass or the acutely ill. [email or web address] [email or web address] eGFR 158 >=60 mL/min/1. 73 m?? [facility] Comment: The eGFR was calculated using the CKD-EPI equation. As with all creatinine based estimates of kidney function, eGFR values calculated with the CKD-EPI equation are not accurate in patients with acute kidney failure, extremes of body mass or the acutely ill. [email or web address] [email or web address] TULSAnkf Blood specimen (specimen) 01/30/2018 4:49 AM EDT 01/30/2018 4:55 AM EDT Narrative Resulting Agency Comment Spec In Lab Noah Menard MD CHEMISTRY ORDERABLES Performing Organization Address City/State/[facility] Co de Phone Number [facility] [place] [address] * (ABNORMAL) Basic Metabolic Panel (non-fasting) (01/29/2018 6:36 AM EDT) Glucose 113 65 - 199 mg/dL [facility] Comment:Diabetes: >=200 mg/d L plus symptoms Blood Urea Nitrogen 15 10 - 20 mg/dL [facility] Creatinine 0.72(L) 0.80 - 1.50 mg/dL [facility] Sodium 143 135 - 145 mmol/L [facility] Potassium 3.9 3.5 - 5.0 mmol/L [facility] Comment: Please note: ??Patients with WBC >100,000 may have falsely elevated Potassium levels. ??For accurate Potassium quantification in these patients send serum separator tube (gold top) for subsequent determinations. ??Contact the Clinical Chemistry Laboratory if there are any questions. Chloride 107 98 - 107 mmol/L [facility] Carbon Dioxide 21(L) 22 - 31 mmol/L [facility] Anion Gap 15 5 - 15 mmol/L [facility] Calcium 9.5 8.5 - 10.5 mg/dL [facility] Est Glomerular Filtration Rate 128 >=60 mL/min/1. 73 m?? [facility] Comment: The eGFR was calculated using the CKD-EPI equation. As with all creatinine based estimates of kidney function, eGFR values calculated with the CKD-EPI equation are not accurate in patients with acute kidney failure, extremes of body mass or the acutely ill. [email or web address] [email or web address] eGFR 148 >=60 mL/min/1. 73 m?? [facility] Comment: The eGFR was calculated using the CKD-EPI equation. As with all creatinine based estimates of kidney function, eGFR values calculated with the CKD-EPI equation are not accurate in patients with acute kidney failure, extremes of body mass or the acutely ill. [email or web address] [email or web address] TULSAnkf Blood specimen (specimen) 01/29/2018 6:36 AM EDT 01/29/2018 6:49 AM EDT Narrative Resulting Agency Comment Spec In Lab Noah Menard MD CHEMISTRY ORDERABLES [facility] [place] [address] * (ABNORMAL) Basic Metabolic Panel (non-fasting) (01/28/2018 8:26 AM EDT) Glucose 112 65 - 199 mg/dL [facility] Comment:Diabetes: >=200 mg/d L plus symptoms Blood Urea Nitrogen 22(H) 10 - 20 mg/dL [facility] Creatinine 1.04 0.80 - 1.50 mg/dL [facility] Sodium 142 135 - 145 mmol/L [facility] Potassium 3.4(L) 3.5 - 5.0 mmol/L [facility] Comment: Please note: ??Patients with WBC >100,000 may have falsely elevated Potassium levels. ??For accurate Potassium quantification in these patients send serum separator tube (gold top) for subsequent determinations. ??Contact the Clinical Chemistry Laboratory if there are any questions. Chloride 101 98 - 107 mmol/L [facility] Carbon Dioxide 23 22 - 31 mmol/L [facility] Anion Gap 18(H) 5 - 15 mmol/L [facility] Calcium 9.3 8.5 - 10.5 mg/dL [facility] Est Glomerular Filtration Rate 98 >=60 mL/min/1. 73 m?? [facility] Comment: The eGFR was calculated using the CKD-EPI equation. As with all creatinine based estimates of kidney function, eGFR values calculated with the CKD-EPI equation are not accurate in patients with acute kidney failure, extremes of body mass or the acutely ill. [email or web address] [email or web address] [employer] eGFR 114 >=60 mL/min/1. 73 m?? [facility] Comment: The eGFR was calculated using the CKD-EPI equation. As with all creatinine based estimates of kidney function, eGFR values calculated with the CKD-EPI equation are not accurate in patients with acute kidney failure, extremes of body mass or the acutely ill. [email or web address] [email or web address] Blood specimen (specimen) 01/28/2018 8:26 AM EDT 01/28/2018 8:31 AM EDT Narrative Resulting Agency Comment Spec In Lab Noah Menard MD CHEMISTRY ORDERABLES [facility] [place] [address] * (ABNORMAL) Electrolytes panel (01/27/2018 6:24 AM EDT) Sodium 149(H) 135 - 145 mmol/L [facility] Potassium 3.8 3.5 - 5.0 mmol/L [facility] Comment: Please note: ??Patients with WBC >100,000 may have falsely elevated Potassium levels. ??For accurate Potassium quantification in these patients send serum separator tube (gold top) for subsequent determinations. ??Contact the Clinical Chemistry Laboratory if there are any questions. Chloride 109(H) 98 - 107 mmol/L [facility] Carbon Dioxide 25 22 - 31 mmol/L [facility] Anion Gap 15 5 - 15 mmol/L [facility] Blood specimen (specimen) 01/27/2018 6:24 AM EDT 01/27/2018 6:39 AM EDT Narrative Resulting Agency Comment Spec In Lab Crista Aguilar MD CHEMISTRY ORDERABLE S Performing Organization Address [facility]/ZIP Co de Phone Number [facility] [place] [address] * T4, free (01/26/2018 6:13 AM EDT) Free T4 0.95 0.93 - 1.70 ng/dL [facility] Blood specimen (specimen) 01/26/2018 6:13 AM EDT 01/26/2018 6:24 AM EDT Narrative Resulting Agency Comment Spec In Lab Crista Aguilar MD CHEMISTRY ORDERABLE S Performing Organization Address City/[facility]/ZIP Co de Phone Number [facility] [place] [address] * (ABNORMAL) Electrolytes panel (01/25/2018 6:28 AM EDT) Sodium 145 135 - 145 mmol/L [facility] Potassium 3.9 3.5 - 5.0 mmol/L [facility] Comment: Please note: ??Patients with WBC >100,000 may have falsely elevated Potassium levels. ??For accurate Potassium quantification in these patients send serum separator tube (gold top) for subsequent determinations. ??Contact the Clinical Chemistry Laboratory if there are any questions. Chloride 104 98 - 107 mmol/L [facility] Carbon Dioxide 25 22 - 31 mmol/L [facility] Anion Gap 16(H) 5 - 15 mmol/L [facility] Blood specimen (specimen) 01/25/2018 6:28 AM EDT 01/25/2018 6:41 AM EDT Narrative Resulting Agency Comment Spec In Lab Crista Aguilar MD CHEMISTRY ORDERABLE S Performing Organization Address City/[facility]/ZIP Co de Phone Number [facility] [place] [address] * T4, free (01/23/2018 6:11 AM EDT) Free T4 0.94 0.93 - 1.70 ng/dL [facility] Blood specimen (specimen) Venous Draw / Unknown 01/23/2018 6:11 AM EDT 01/23/2018 6:42 AM EDT Narrative Resulting Agency Comment Spec In Lab Yadi Mccauley MD CHEMISTRY ORDERAB LES Performing Organization Address [facility]/ZIP Co de Phone Number [facility] [place] [address] * (ABNORMAL) Electrolytes panel (01/23/2018 6:11 AM EDT) Sodium 144 135 - 145 mmol/L [facility] Potassium 3.9 3.5 - 5.0 mmol/L [facility] Comment: Please note: ??Patients with WBC >100,000 may have falsely elevated Potassium levels. ??For accurate Potassium quantification in these patients send serum separator tube (gold top) for subsequent determinations. ??Contact the Clinical Chemistry Laboratory if there are any questions. Chloride 106 98 - 107 mmol/L [facility] Carbon Dioxide 22 22 - 31 mmol/L [facility] Anion Gap 16(H) 5 - 15 mmol/L [facility] Blood specimen (specimen) 01/23/2018 6:11 AM EDT 01/23/2018 6:37 AM EDT Narrative Resulting Agency Comment Spec In Lab Crista Aguilar MD CHEMISTRY ORDERABLE S Performing Organization Address [facility] Co de Phone Number [facility] [place] [address] * (ABNORMAL) Electrolytes panel (01/21/2018 4:34 AM EDT) Sodium 139 135 - 145 mmol/L [facility] Potassium 4.0 3.5 - 5.0 mmol/L [facility] Comment: Please note: ??Patients with WBC >100,000 may have falsely elevated Potassium levels. ??For accurate Potassium quantification in these patients send serum separator tube (gold top) for subsequent determinations. ??Contact the Clinical Chemistry Laboratory if there are any questions. Chloride 103 98 - 107 mmol/L [facility] Carbon Dioxide 20(L) 22 - 31 mmol/L [facility] Anion Gap 16(H) 5 - 15 mmol/L [facility] Blood specimen (specimen) 01/21/2018 4:34 AM EDT 01/21/2018 4:55 AM EDT Narrative Resulting Agency Comment Spec In Lab Crista Aguilar MD CHEMISTRY ORDERABLE S Performing Organization Address [facility] Co de Phone Number [facility] [place] [address] * (ABNORMAL) Electrolytes panel (01/19/2018 7:21 AM EDT) Sodium 142 135 - 145 mmol/L [facility] Potassium 3.6 3.5 - 5.0 mmol/L [facility] Comment: Please note: ??Patients with WBC >100,000 may have falsely elevated Potassium levels. ??For accurate Potassium quantification in these patients send serum separator tube (gold top) for subsequent determinations. ??Contact the Clinical Chemistry Laboratory if there are any questions. Chloride 103 98 - 107 mmol/L [facility] Carbon Dioxide 23 22 - 31 mmol/L [facility] Anion Gap 16(H) 5 - 15 mmol/L [facility] Blood specimen (specimen) 01/19/2018 7:21 AM EDT 01/19/2018 7:26 AM EDT Narrative Resulting Agency Comment Spec In Lab Crista Aguilar MD CHEMISTRY ORDERABLE S Performing Organization Address [facility] Co de Phone Number [facility] [place] [address] * (ABNORMAL) Electrolytes panel (01/17/2018 5:17 AM EDT) Pathologist [facility] Sodium 140 135 - 145 mmol/L [facility] Potassium 3.4(L) 3.5 - 5.0 mmol/L [facility] Comment: Please note: ??Patients with WBC >100,000 may have falsely elevated Potassium levels. ??For accurate Potassium quantification in these patients send serum separator tube (gold top) for subsequent determinations. ??Contact the Clinical Chemistry Laboratory if there are any questions. Chloride 102 98 - 107 mmol/L [facility] Carbon Dioxide 24 22 - 31 mmol/L [facility] Anion Gap 14 5 - 15 mmol/L [facility] Blood specimen (specimen) 01/17/2018 5:17 AM EDT 01/17/2018 5:31 AM EDT Narrative Resulting Agency Comment Spec In Lab Crista Aguilar MD CHEMISTRY ORDERABLE S Performing Organization Address [facility]/ZIP Co de Phone Number [facility] [place] [address] * (ABNORMAL) Differential, Automated (01/16/2018 5:02 AM EDT) Neutrophil % 40.0 % [facility] Neutrophil Absolute 2.01 1.70 - 6.10 x10(3)/mc L [facility] Lymph % 43.8 % [facility] Lymphocytes Abs 2.2 0.9 - 3.2 x10(3)/[facility] Monocyte % 10.2 % [facility] Monocyte Abs 0.5 0.3 - 0.9 x10(3)/[facility] Eos % 4.2 % [facility] Eosinophils Abs 0.2 0.0 - 0.4 x10(3)/[facility] Basophil % 0.8 % [facility] Baso Absolute 0.0 0.0 - 0.1 x10(3)/[facility] Immature Gran % 1.00 % [facility] Comment: Immature granulocytes(IG's)percentage and absolute count will include metamyelocytes, myelocytes, and promyelocytes. Blood smears from CBCs yielding IG's will be scanned manually for concordance. If this scan disagrees with the automated IG or if promyelocytes are noted, a manual differential will be performed. Immature Gran Absolute 0.05(H) 0.00 - 0.04 x10(3)/[facility] Blood specimen (specimen) 01/16/2018 5:02 AM EDT 01/16/2018 5:21 AM EDT Narrative Resulting Agency Comment Spec In Lab Crista Aguilar MD HEMATOLOGY ORDERABL ES [facility] [place] [address] * (ABNORMAL) Hemogram (01/16/2018 5:02 AM EDT) White Blood Cell 5.0 4.0 - 9.5 x10(3)/[facility] Red Blood Cell 4.81 4.58 - 5.54 x10(6)/[facility] Hemoglobin 11.2(L) 13.7 - 16.5 gm/dL [facility] Hematocrit 35.5(L) 40.5 - 48.5 % [facility] Mean Cell Volume 73.8(L) 82.9 - 93.1 fL [facility] Mean Cell Hemoglobin 23.3(L) 27.5 - 32.1 pg [facility] Mean Cell Hemoglobin Concentration 31.5(L) 32.0 - 35.7 gm/dL [facility] Platelet 298 145 - 357 x10(3)/mc L [facility] RDW Standard Deviation 45.8(H) 36.0 - 45.0 fL [facility] RDW coefficient of variation 17.2(H) 11.4 - 13.8 % [facility] Mean Platelet Volume 10.6 7.6 - 12.9 fL [facility] NRBC% auto 0.0 % [facility] NRBC Absolute 0.000 0.000 - 0.000 x10(3)/mc L [facility] Blood specimen (specimen) 01/16/2018 5:02 AM EDT 01/16/2018 5:21 AM EDT Narrative Resulting Agency Comment Spec In Lab Crista Aguilar MD HEMATOLOGY ORDERABL ES [facility] [place] [address] * (ABNORMAL) Basic Metabolic Panel (non-fasting) (01/16/2018 5:02 AM EDT) Glucose 78 65 - 199 mg/dL [facility] Comment:Diabetes: >=200 mg/d L plus symptoms Blood Urea Nitrogen 17 10 - 20 mg/dL [facility] Creatinine 0.83 0.80 - 1.50 mg/dL [facility] Sodium 146(H) 135 - 145 mmol/L [facility] Potassium 3.7 3.5 - 5.0 mmol/L [facility] Comment: Please note: ??Patients with WBC >100,000 may have falsely elevated Potassium levels. ??For accurate Potassium quantification in these patients send serum separator tube (gold top) for subsequent determinations. ??Contact the Clinical Chemistry Laboratory if there are any questions. Chloride 108(H) 98 - 107 mmol/L [facility] Carbon Dioxide 23 22 - 31 mmol/L [facility] Anion Gap 15 5 - 15 mmol/L [facility] Calcium 10.1 8.5 - 10.5 mg/dL [facility] Est Glomerular Filtration Rate 121 >=60 mL/min/1. 73 m?? [facility] Comment: The eGFR was calculated using the CKD-EPI equation. As with all creatinine based estimates of kidney function, eGFR values calculated with the CKD-EPI equation are not accurate in patients with acute kidney failure, extremes of body mass or the acutely ill. [email or web address] [email or web address] eGFR 140 >=60 mL/min/1. 73 m?? [facility] Comment: The eGFR was calculated using the CKD-EPI equation. As with all creatinine based estimates of kidney function, eGFR values calculated with the CKD-EPI equation are not accurate in patients with acute kidney failure, extremes of body mass or the acutely ill. [email or web address] [employer] [email or web address] Blood specimen (specimen) 01/16/2018 5:02 AM EDT 01/16/2018 5:21 AM EDT Narrative Resulting Agency Comment Spec In Lab Crista Aguilar MD CHEMISTRY ORDERABLE S [facility] [place] [address] * (ABNORMAL) Electrolytes panel (01/15/2018 6:12 AM EDT) Sodium 148(H) 135 - 145 mmol/L [facility] Potassium Not Perf 3.5 - 5.0 [facility] Comment: Unable to quantitate due to [...] questions. Chloride 110(H) 98 - 107 mmol/L [facility] Carbon Dioxide 23 22 - 31 mmol/L [facility] Anion Gap 15 5 - 15 mmol/L [facility] Blood specimen (specimen) 01/15/2018 6:12 AM EDT 01/15/2018 6:26 AM EDT Narrative Resulting Agency Comment Spec In Lab Crista Aguilar MD CHEMISTRY ORDERABLE S Performing Organization Address [facility] Co de Phone Number [facility] [place] [address] * Electrolytes panel (01/13/2018 6:23 AM EDT) Sodium 142 135 - 145 mmol/L [facility] Potassium 3.6 3.5 - 5.0 mmol/L [facility] Comment: Please note: ??Patients with WBC >100,000 may have falsely elevated Potassium levels. ??For accurate Potassium quantification in these patients send serum separator tube (gold top) for subsequent determinations. ??Contact the Clinical Chemistry Laboratory if there are any questions. Chloride 106 98 - 107 mmol/L [facility] Carbon Dioxide 23 22 - 31 mmol/L [facility] Anion Gap 13 5 - 15 mmol/L [facility] Blood specimen (specimen) 01/13/2018 6:23 AM EDT 01/13/2018 6:32 AM EDT Narrative Resulting Agency Comment Spec In Lab Maldonado Salazar MD CHEMISTRY ORDERABLES Performing Organization Address [facility]/ZIP Co de Phone Number [facility] [place] [address] * T3 Total (01/12/2018 7:53 AM EDT) T3 Total 97 75 - 170 ng/dL [facility] Blood specimen (specimen) Venous Draw / Unknown 01/12/2018 7:53 AM EDT 01/12/2018 9:37 AM EDT Narrative Resulting Agency Comment Spec In Lab Guerrero Tillman MD CHEMISTRY ORDE RABREBECA Performing Organization Address City/[facility]/ZIP Co de Phone Number [facility] [place] [address] * (ABNORMAL) Electrolytes panel (01/12/2018 7:53 AM EDT) [facility] Sodium 143 135 - 145 mmol/L [facility] Potassium 3.7 3.5 - 5.0 mmol/L [facility] Comment: Please note: ??Patients with WBC >100,000 may have falsely elevated Potassium levels. ??For accurate Potassium quantification in these patients send serum separator tube (gold top) for subsequent determinations. ??Contact the Clinical Chemistry Laboratory if there are any questions. Chloride 102 98 - 107 mmol/L [facility] Carbon Dioxide 23 22 - 31 mmol/L [facility] Anion Gap 18(H) 5 - 15 mmol/L [facility] Blood specimen (specimen) 01/12/2018 7:53 AM EDT 01/12/2018 8:10 AM EDT Narrative Resulting Agency Comment Spec In Lab Maldonado Salazar MD CHEMISTRY ORDERABLES Performing Organization Address [facility]/ZIP Co de Phone Number [facility] [place] [address] * (ABNORMAL) Electrolytes panel (01/11/2018 7:22 AM EDT) Sodium 141 135 - 145 mmol/L [facility] Potassium 3.7 3.5 - 5.0 mmol/L [facility] Comment: Please note: ??Patients with WBC >100,000 may have falsely elevated Potassium levels. ??For accurate Potassium quantification in these patients send serum separator tube (gold top) for subsequent determinations. ??Contact the Clinical Chemistry Laboratory if there are any questions. Chloride 101 98 - 107 mmol/L [facility] Comment:result rechecked-sb Carbon Dioxide 24 22 - 31 mmol/L [facility] Anion Gap 16(H) 5 - 15 mmol/L [facility] Blood specimen (specimen) 01/11/2018 7:22 AM EDT 01/11/2018 7:31 AM EDT Narrative Resulting Agency Comment Spec In Lab Maldonado Salazar MD CHEMISTRY ORDERABLES Performing Organization Address [facility] [facility] Co de Phone Number [facility] [place] [address] * (ABNORMAL) T4, free (01/11/2018 7:22 AM EDT) Free T4 0.74(L) 0.93 - 1.70 ng/dL [facility] Blood specimen (specimen) 01/11/2018 7:22 AM EDT 01/11/2018 7:31 AM EDT Narrative Resulting Agency Comment Spec In Lab Crista Aguilar MD CHEMISTRY ORDERABLE S Performing Organization Address [facility] Co de Phone Number [facility] [place] [address] * (ABNORMAL) Electrolytes panel (01/10/2018 5:10 AM EDT) Sodium 148(H) 135 - 145 mmol/L [facility] Potassium 3.7 3.5 - 5.0 mmol/L [facility] Comment: Please note: ??Patients with WBC >100,000 may have falsely elevated Potassium levels. ??For accurate Potassium quantification in these patients send serum separator tube (gold top) for subsequent determinations. ??Contact the Clinical Chemistry Laboratory if there are any questions. Chloride 106 98 - 107 mmol/L [facility] Carbon Dioxide 24 22 - 31 mmol/L [facility] Anion Gap 18(H) 5 - 15 mmol/L [facility] Blood specimen (specimen) 01/10/2018 5:10 AM EDT 01/10/2018 5:15 AM EDT Narrative Resulting Agency Comment Spec In Lab Maldonado Salazar MD CHEMISTRY ORDERABLES Performing Organization Address [facility] Co de Phone Number [facility] [place] [address] * (ABNORMAL) Electrolytes panel (01/09/2018 5:06 AM EDT) Sodium 149(H) 135 - 145 mmol/L [facility] Potassium 3.8 3.5 - 5.0 mmol/L [facility] Comment: Please note: ??Patients with WBC >100,000 may have falsely elevated Potassium levels. ??For accurate Potassium quantification in these patients send serum separator tube (gold top) for subsequent determinations. ??Contact the Clinical Chemistry Laboratory if there are any questions. Chloride 110(H) 98 - 107 mmol/L [facility] Carbon Dioxide 25 22 - 31 mmol/L [facility] Anion Gap 14 5 - 15 mmol/L [facility] Blood specimen (specimen) 01/09/2018 5:06 AM EDT 01/09/2018 5:24 AM EDT Narrative Resulting Agency Comment Spec In Lab Maldonado Salazar MD CHEMISTRY ORDERABLES Performing Organization Address [facility] Co de Phone Number [facility] [place] [address] * (ABNORMAL) Electrolytes panel (01/08/2018 6:07 AM EDT) Sodium 149(H) 135 - 145 mmol/L [facility] Potassium 3.7 3.5 - 5.0 mmol/L [facility] Comment: Please note: ??Patients with WBC >100,000 may have falsely elevated Potassium levels. ??For accurate Potassium quantification in these patients send serum separator tube (gold top) for subsequent determinations. ??Contact the Clinical Chemistry Laboratory if there are any questions. Chloride 111(H) 98 - 107 mmol/L [facility] Carbon Dioxide 24 22 - 31 mmol/L [facility] Anion Gap 14 5 - 15 mmol/L [facility] Blood specimen (specimen) 01/08/2018 6:07 AM EDT 01/08/2018 6:14 AM EDT Narrative Resulting Agency Comment Spec In Lab Maldonado Salazar MD CHEMISTRY ORDERABLES Performing Organization Address [facility]/ZIP Co de Phone Number [facility] [place] [address] * (ABNORMAL) Electrolytes panel (01/07/2018 7:01 AM EDT) Sodium 148(H) 135 - 145 mmol/L [facility] Comment:Specimen ultracentri fuged due to gross lipemia Potassium Not Perf 3.5 - 5.0 [facility] Comment: Unable to quantitate due to sample hemolysis. ??Sample redraw suggested. Called Hafsa 01/07/18 08:35 ms Please note: ??Patients with WBC >100,000 may have falsely elevated Potassium levels. ??For accurate Potassium quantification in these patients send serum separator tube (gold top) for subsequent determinations. ??Contact the Clinical Chemistry Laboratory if there are any questions. Chloride 112(H) 98 - 107 mmol/L [facility] Comment:Specimen ultracentri fuged due to gross lipemia Carbon Dioxide 26 22 - 31 mmol/L [facility] Anion Gap 10 5 - 15 mmol/L [facility] Blood specimen (specimen) 01/07/2018 7:01 AM EDT 01/07/2018 7:16 AM EDT Narrative Resulting Agency Comment Spec In Lab Maldonado Salazar MD CHEMISTRY ORDERABLES Performing Organization Address City/[facility]/ZIP Co de Phone Number [facility] [place] [address] * (ABNORMAL) Electrolytes panel (01/06/2018 11:21 PM EDT) Sodium 148(H) 135 - 145 mmol/L [facility] Potassium Not Perf 3.5 - 5.0 [facility] Comment: Specimen hemolyzed. [facility], Read back by: Denisse Lebron, Date/Time:01/07/18 00:15. Please note: ??Patients with WBC >100,000 may have falsely elevated Potassium levels. ??For accurate Potassium quantification in these patients send serum separator tube (gold top) for subsequent determinations. ??Contact the Clinical Chemistry Laboratory if there are any questions. Chloride 109(H) 98 - 107 mmol/L [facility] Carbon Dioxide 24 22 - 31 mmol/L [facility] Anion Gap 15 5 - 15 mmol/L [facility] Blood specimen (specimen) 01/06/2018 11:21 PM EDT 01/06/2018 11:34 PM EDT Narrative Resulting Agency Comment Spec In Lab Maldonado Salazar MD CHEMISTRY ORDERABLES [facility] [place] [address] * (ABNORMAL) Electrolytes panel (01/06/2018 6:47 AM EDT) Sodium 149(H) 135 - 145 mmol/L [facility] Potassium Not Perf 3.5 - 5.0 [facility] Comment: Called by: [facility], Read back by: Sarika Michael, Date/Time:01/06/18 08:08. Please note: ??Patients with WBC >100,000 may have falsely elevated Potassium levels. ??For accurate Potassium quantification in these patients send serum separator tube (gold top) for subsequent determinations. ??Contact the Clinical Chemistry Laboratory if there are any questions. Chloride 110(H) 98 - 107 mmol/L [facility] Carbon Dioxide 23 22 - 31 mmol/L [facility] Anion Gap 16(H) 5 - 15 mmol/L [facility] Blood specimen (specimen) 01/06/2018 6:47 AM EDT 01/06/2018 7:10 AM EDT Narrative Resulting Agency Comment Spec In Lab Maldonado Salazar MD CHEMISTRY ORDERABLES Performing Organization Address [facility] Co de Phone Number [facility] [place] [address] * (ABNORMAL) Electrolytes panel (01/05/2018 5:48 PM EDT) Sodium 146(H) 135 - 145 mmol/L [facility] Potassium 4.0 3.5 - 5.0 mmol/L [facility] Comment: Please note: ??Patients with WBC >100,000 may have falsely elevated Potassium levels. ??For accurate Potassium quantification in these patients send serum separator tube (gold top) for subsequent determinations. ??Contact the Clinical Chemistry Laboratory if there are any questions. Chloride 107 98 - 107 mmol/L [facility] Carbon Dioxide 22 22 - 31 mmol/L [facility] Anion Gap 17(H) 5 - 15 mmol/L [facility] Blood specimen (specimen) 01/05/2018 5:48 PM EDT 01/05/2018 6:03 PM EDT Narrative Resulting Agency Comment Spec In Lab Maldonado Salazar MD CHEMISTRY ORDERABLES Performing Organization Address [facility]/ZIP Co de Phone Number [facility] [place] [address] * (ABNORMAL) Electrolytes panel (01/05/2018 5:38 AM EDT) Sodium 151(H) 135 - 145 mmol/L [facility] Comment:result rechecked-jt Potassium 3.5 3.5 - 5.0 mmol/L [facility] Comment: Please note: ??Patients with WBC >100,000 may have falsely elevated Potassium levels. ??For accurate Potassium quantification in these patients send serum separator tube (gold top) for subsequent determinations. ??Contact the Clinical Chemistry Laboratory if there are any questions. Chloride 114(H) 98 - 107 mmol/L [facility] Comment:result rechecked-jt Carbon Dioxide 23 22 - 31 mmol/L [facility] Anion Gap 14 5 - 15 mmol/L [facility] Blood specimen (specimen) 01/05/2018 5:38 AM EDT 01/05/2018 5:56 AM EDT Narrative Resulting Agency Comment Spec In Lab Maldonado Salazar MD CHEMISTRY ORDERABLES Performing Organization Address [facility] Co de Phone Number [facility] [place] [address] * (ABNORMAL) Electrolytes panel (01/04/2018 7:08 AM EDT) Sodium 146(H) 135 - 145 mmol/L [facility] Comment:Specimen ultracentri fuged due to gross lipemia Potassium 3.2(L) 3.5 - 5.0 mmol/L [facility] Comment: Please note: ??Patients with WBC >100,000 may have falsely elevated Potassium levels. ??For accurate Potassium quantification in these patients send serum separator tube (gold top) for subsequent determinations. ??Contact the Clinical Chemistry Laboratory if there are any questions. Chloride 102 98 - 107 mmol/L [facility] Carbon Dioxide 25 22 - 31 mmol/L [facility] Anion Gap 19(H) 5 - 15 mmol/L [facility] Blood specimen (specimen) 01/04/2018 7:08 AM EDT 01/04/2018 7:16 AM EDT Narrative Resulting Agency Comment Spec In Lab Sherri Hanson MD CHEMISTRY ORDERABL ES Performing Organization Address [facility]/ZIP Co de Phone Number [facility] [place] [address] * Electrolytes panel (01/04/2018 3:14 AM EDT) Sodium 140 135 - 145 mmol/L [facility] Potassium 3.6 3.5 - 5.0 mmol/L [facility] Comment: Please note: ??Patients with WBC >100,000 may have falsely elevated Potassium levels. ??For accurate Potassium quantification in these patients send serum separator tube (gold top) for subsequent determinations. ??Contact the Clinical Chemistry Laboratory if there are any questions. Chloride 103 98 - 107 mmol/L [facility] Carbon Dioxide 23 22 - 31 mmol/L [facility] Anion Gap 14 5 - 15 mmol/L [facility] Blood specimen (specimen) 01/04/2018 3:14 AM EDT 01/04/2018 3:19 AM EDT Narrative Resulting Agency Comment Spec In Lab Sherri Hanson MD CHEMISTRY ORDERABL ES Performing Organization Address City/State/[facility] Co de Phone Number [facility] [place] [address] * (ABNORMAL) Electrolytes panel (01/03/2018 10:48 PM EDT) Sodium 142 135 - 145 mmol/L [facility] Potassium 3.4(L) 3.5 - 5.0 mmol/L [facility] Comment: Please note: ??Patients with WBC >100,000 may have falsely elevated Potassium levels. ??For accurate Potassium quantification in these patients send serum separator tube (gold top) for subsequent determinations. ??Contact the Clinical Chemistry Laboratory if there are any questions. Chloride 102 98 - 107 mmol/L [facility] Carbon Dioxide 25 22 - 31 mmol/L [facility] Anion Gap 15 5 - 15 mmol/L [facility] Blood specimen (specimen) 01/03/2018 10:48 PM EDT 01/03/2018 11:09 PM EDT Narrative Resulting Agency Comment Spec In Lab Sherri Hanson MD CHEMISTRY ORDERABL ES Performing Organization Address [facility]/ZIP Co de Phone Number [facility] [place] [address] * (ABNORMAL) Electrolytes panel (01/03/2018 1:32 PM EDT) Sodium 139 135 - 145 mmol/L [facility] Potassium 3.8 3.5 - 5.0 mmol/L [facility] Comment: Please note: ??Patients with WBC >100,000 may have falsely elevated Potassium levels. ??For accurate Potassium quantification in these patients send serum separator tube (gold top) for subsequent determinations. ??Contact the Clinical Chemistry Laboratory if there are any questions. Chloride 97(L) 98 - 107 mmol/L [facility] Carbon Dioxide 25 22 - 31 mmol/L [facility] Anion Gap 17(H) 5 - 15 mmol/L [facility] Blood specimen (specimen) 01/03/2018 1:32 PM EDT 01/03/2018 1:37 PM EDT Narrative Resulting Agency Comment Spec In Lab Maldonado Salazar MD CHEMISTRY ORDERABLES Performing Organization Address [facility]/ZIP Co de Phone Number [facility] [place] [address] * (ABNORMAL) Electrolytes panel (01/03/2018 8:38 AM EDT) Sodium 145 135 - 145 mmol/L [facility] Potassium 3.7 3.5 - 5.0 mmol/L [facility] Comment: Please note: ??Patients with WBC >100,000 may have falsely elevated Potassium levels. ??For accurate Potassium quantification in these patients send serum separator tube (gold top) for subsequent determinations. ??Contact the Clinical Chemistry Laboratory if there are any questions. Chloride 105 98 - 107 mmol/L [facility] Carbon Dioxide 23 22 - 31 mmol/L [facility] Anion Gap 17(H) 5 - 15 mmol/L [facility] Blood specimen (specimen) 01/03/2018 8:38 AM EDT 01/03/2018 8:56 AM EDT Narrative Resulting Agency Comment Spec In Lab Fran Gilliam MD CHEMISTRY ORDERABL ES Performing Organization Address [facility] Co de Phone Number [facility] [place] [address] * (ABNORMAL) Electrolytes panel (01/02/2018 8:55 AM EDT) Sodium 155(H) 135 - 145 mmol/L [facility] Potassium 3.8 3.5 - 5.0 mmol/L [facility] Comment: Please note: ??Patients with WBC >100,000 may have falsely elevated Potassium levels. ??For accurate Potassium quantification in these patients send serum separator tube (gold top) for subsequent determinations. ??Contact the Clinical Chemistry Laboratory if there are any questions. Chloride 113(H) 98 - 107 mmol/L [facility] Carbon Dioxide 27 22 - 31 mmol/L [facility] Anion Gap 15 5 - 15 mmol/L [facility] Blood specimen (specimen) 01/02/2018 8:55 AM EDT 01/02/2018 9:04 AM EDT Narrative Resulting Agency Comment Spec In Lab Fran Gilliam MD CHEMISTRY ORDERABL ES Performing Organization Address [facility]/ZIP Co de Phone Number [facility] [place] [address] * (ABNORMAL) Electrolytes panel (12/30/2017 8:24 AM EDT) Sodium 147(H) 135 - 145 mmol/L [facility] Potassium 3.9 3.5 - 5.0 mmol/L [facility] Comment: Please note: ??Patients with WBC >100,000 may have falsely elevated Potassium levels. ??For accurate Potassium quantification in these patients send serum separator tube (gold top) for subsequent determinations. ??Contact the Clinical Chemistry Laboratory if there are any questions. Chloride 108(H) 98 - 107 mmol/L [facility] Carbon Dioxide 25 22 - 31 mmol/L [facility] Anion Gap 14 5 - 15 mmol/L [facility] Blood specimen (specimen) 12/30/2017 8:24 AM EDT 12/30/2017 8:37 AM EDT Narrative Resulting Agency Comment Spec In Lab Fran Gilliam MD CHEMISTRY ORDERABL ES Performing Organization Address [facility] Co de Phone Number [facility] [place] [address] * (ABNORMAL) Electrolytes panel (12/29/2017 3:57 AM EDT) Sodium 142 135 - 145 mmol/L [facility] Potassium 4.1 3.5 - 5.0 mmol/L [facility] Comment: Please note: ??Patients with WBC >100,000 may have falsely elevated Potassium levels. ??For accurate Potassium quantification in these patients send serum separator tube (gold top) for subsequent determinations. ??Contact the Clinical Chemistry Laboratory if there are any questions. Chloride 103 98 - 107 mmol/L [facility] Carbon Dioxide 22 22 - 31 mmol/L [facility] Anion Gap 17(H) 5 - 15 mmol/L [facility] Blood specimen (specimen) 12/29/2017 3:57 AM EDT 12/29/2017 4:03 AM EDT Narrative Resulting Agency Comment Spec In Lab Fran Gilliam MD CHEMISTRY ORDERABL ES Performing Organization Address [facility]/ZIP Co de Phone Number [facility] [place] [address] * (ABNORMAL) Electrolytes panel (12/28/2017 8:27 PM EDT) Sodium 145 135 - 145 mmol/L [facility] Comment:Specimen ultracentri fuged due to gross lipemia Potassium 4.2 3.5 - 5.0 mmol/L [facility] Comment: Please note: ??Patients with WBC >100,000 may have falsely elevated Potassium levels. ??For accurate Potassium quantification in these patients send serum separator tube (gold top) for subsequent determinations. ??Contact the Clinical Chemistry Laboratory if there are any questions. Chloride 104 98 - 107 mmol/L [facility] Carbon Dioxide 24 22 - 31 mmol/L [facility] Anion Gap 17(H) 5 - 15 mmol/L [facility] Blood specimen (specimen) 12/28/2017 8:27 PM EDT 12/28/2017 8:32 PM EDT Narrative Resulting Agency Comment Spec In Lab Fran Gilliam MD CHEMISTRY ORDERABL ES Performing Organization Address [facility] Co de Phone Number [facility] [place] [address] * (ABNORMAL) Electrolytes panel (12/28/2017 5:08 AM EDT) Sodium 148(H) 135 - 145 mmol/L [facility] Potassium 3.9 3.5 - 5.0 mmol/L [facility] Comment: Please note: ??Patients with WBC >100,000 may have falsely elevated Potassium levels. ??For accurate Potassium quantification in these patients send serum separator tube (gold top) for subsequent determinations. ??Contact the Clinical Chemistry Laboratory if there are any questions. Chloride 105 98 - 107 mmol/L [facility] Carbon Dioxide 25 22 - 31 mmol/L [facility] Anion Gap 18(H) 5 - 15 mmol/L [facility] Blood specimen (specimen) 12/28/2017 5:08 AM EDT 12/28/2017 5:26 AM EDT Narrative Resulting Agency Comment Spec In Lab Fran Gilliam MD CHEMISTRY ORDERABL ES Performing Organization Address [facility] Co de Phone Number [facility] [place] [address] * (ABNORMAL) Basic Metabolic Panel (non-fasting) (12/28/2017 12:04 AM EDT) Glucose 114 65 - 199 mg/dL [facility] Comment:Diabetes: >=200 mg/d L plus symptoms Blood Urea Nitrogen 22(H) 10 - 20 mg/dL [facility] Creatinine 0.90 0.80 - 1.50 mg/dL [facility] Sodium 146(H) 135 - 145 mmol/L [facility] Comment:result rechecked-jt Potassium 3.6 3.5 - 5.0 mmol/L [facility] Comment: Please note: ??Patients with WBC >100,000 may have falsely elevated Potassium levels. ??For accurate Potassium quantification in these patients send serum separator tube (gold top) for subsequent determinations. ??Contact the Clinical Chemistry Laboratory if there are any questions. Chloride 104 98 - 107 mmol/L [facility] Comment:result rechecked-jt Carbon Dioxide 25 22 - 31 mmol/L [facility] Anion Gap 17(H) 5 - 15 mmol/L [facility] Calcium 9.4 8.5 - 10.5 mg/dL [facility] Est Glomerular Filtration Rate 117 >=60 mL/min/1. 73 m?? [facility] Comment: The eGFR was calculated using the CKD-EPI equation. As with all creatinine based estimates of kidney function, eGFR values calculated with the CKD-EPI equation are not accurate in patients with acute kidney failure, extremes of body mass or the acutely ill. http://[email or web address] http://[email or web address] TULSAnkf eGFR 135 >=60 mL/min/1. 73 m?? [facility] Comment: The eGFR was calculated using the CKD-EPI equation. As with all creatinine based estimates of kidney function, eGFR values calculated with the CKD-EPI equation are not accurate in patients with acute kidney failure, extremes of body mass or the acutely ill. http://[email or web address] http://[email or web address]SAnkf Blood specimen (specimen) 12/28/2017 12:04 AM EDT 12/28/2017 12:10 AM EDT Narrative Resulting Agency Comment Spec In Lab Fran Gilliam MD CHEMISTRY ORDERABL ES Performing Organization Address [facility]/ZIP Co de Phone Number [facility] [place] [address] * (ABNORMAL) Sodium (12/26/2017 10:23 PM EDT) Sodium 147(H) 135 - 145 mmol/L [facility] Blood specimen (specimen) 12/26/2017 10:23 PM EDT 12/26/2017 10:29 PM EDT Narrative Resulting Agency Comment Spec In Lab José Miguel Maher MD CHEMISTRY ORDERABLES Performing Organization Address [facility] [facility] Co de Phone Number [facility] [place] [address] * (ABNORMAL) Sodium (12/26/2017 10:03 AM EDT) Sodium 155(H) 135 - 145 mmol/L [facility] Blood specimen (specimen) 12/26/2017 10:03 AM EDT 12/26/2017 10:11 AM EDT Narrative Resulting Agency Comment Spec In Lab José Miguel Maher MD CHEMISTRY ORDERABLES Performing Organization Address [facility]/ZIP Co de Phone Number [facility] [place] [address] * (ABNORMAL) Sodium (12/26/2017 5:11 AM EDT) Sodium 154(H) 135 - 145 mmol/L [facility] Blood specimen (specimen) 12/26/2017 5:11 AM EDT 12/26/2017 5:19 AM EDT Narrative Resulting Agency Comment Spec In Lab José Miguel Maher MD CHEMISTRY ORDERABLES Performing Organization Address City/[facility]/ZIP Co de Phone Number [facility] [place] [address] * XR Knee 3 Views Right (12/25/2017 [...] 5:50 AM EDT) Neutrophil % 43.3 % [facility] Neutrophil Absolute 2.14 1.70 - 6.10 x10(3)/[facility] LABORATORY Lymph % 38.7 % [facility] Lymphocytes Abs 1.9 0.9 - 3.2 x10(3)/[facility] LABORATORY Monocyte % 9.3 % [facility] Monocyte Abs 0.5 0.3 - 0.9 x10(3)/[facility] LABORATORY Eos % 7.7 % [facility] Eosinophils Abs 0.4 0.0 - 0.4 x10(3)/[facility] LABORATORY Basophil % 0.6 % [facility] Baso Absolute 0.0 0.0 - 0.1 x10(3)/[facility] LABORATORY Immature Gran % 0.40 % [facility] Comment: Immature granulocytes(IG's)percentage and absolute count will include metamyelocytes, myelocytes, and promyelocytes. Blood smears from CBCs yielding IG's will be scanned manually for concordance. If this scan disagrees with the automated IG or if promyelocytes are noted, a manual differential will be performed. Immature Gran Absolute 0.02 0.00 - 0.04 x10(3)/[facility] LABORATORY Blood specimen (specimen) 12/25/2017 5:50 AM EDT 12/25/2017 6:08 AM EDT Narrative Resulting Agency Comment Spec In Lab José Miguel Maher MD HEMATOLOGY ORDERABLE S Performing Organization Address City/State/[facility] Co de Phone Number [facility] [place] [address] * (ABNORMAL) Hemogram (12/25/2017 5:50 AM EDT) White Blood Cell 4.9 4.0 - 9.5 x10(3)/[facility] LABORATORY Red Blood Cell 4.84 4.58 - 5.54 x10(6)/[facility] LABORATORY Hemoglobin 11.9(L) 13.7 - 16.5 gm/dL [facility] Hematocrit 36.4(L) 40.5 - 48.5 % [facility] Mean Cell Volume 75.2(L) 82.9 - 93.1 fL [facility] Mean Cell Hemoglobin 24.6(L) 27.5 - 32.1 pg [facility] Mean Cell Hemoglobin Concentration 32.7 32.0 - 35.7 gm/dL [facility] Platelet 313 145 - 357 x10(3)/[facility] LABORATORY RDW Standard Deviation 45.6(H) 36.0 - 45.0 fL [facility] RDW coefficient of variation 17.0(H) 11.4 - 13.8 % [facility] Mean Platelet Volume 9.6 7.6 - 12.9 fL [facility] NRBC% auto 0.0 % [facility] NRBC Absolute 0.000 0.000 - 0.000 x10(3)/mc L [facility] Blood specimen (specimen) 12/25/2017 5:50 AM EDT 12/25/2017 6:08 AM EDT Narrative Resulting Agency Comment Spec In Lab José Miguel Maher MD HEMATOLOGY ORDERABLE S [facility] [place] [address] * (ABNORMAL) Basic Metabolic Panel (non-fasting) (12/25/2017 5:50 AM EDT) Glucose 107 65 - 199 mg/dL [facility] Comment:Diabetes: >=200 mg/d L plus symptoms Blood Urea Nitrogen 14 10 - 20 mg/dL [facility] Creatinine 0.63(L) 0.80 - 1.50 mg/dL [facility] Sodium 149(H) 135 - 145 mmol/L [facility] Potassium 3.6 3.5 - 5.0 mmol/L [facility] Comment: Please note: ??Patients with WBC >100,000 may have falsely elevated Potassium levels. ??For accurate Potassium quantification in these patients send serum separator tube (gold top) for subsequent determinations. ??Contact the Clinical Chemistry Laboratory if there are any questions. Chloride 108(H) 98 - 107 mmol/L [facility] Carbon Dioxide 25 22 - 31 mmol/L [facility] Anion Gap 16(H) 5 - 15 mmol/L [facility] Calcium 9.9 8.5 - 10.5 mg/dL [facility] Est Glomerular Filtration Rate 135 >=60 mL/min/1. 73 m?? [facility] Comment: The eGFR was calculated using the CKD-EPI equation. As with all creatinine based estimates of kidney function, eGFR values calculated with the CKD-EPI equation are not accurate in patients with acute kidney failure, extremes of body mass or the acutely ill. http://bigtincan/[place] [employer] http://bigtincan/[facility] TULSAnkf eGFR 157 >=60 mL/min/1. 73 m?? [facility] Comment: The eGFR was calculated using the CKD-EPI equation. As with all creatinine based estimates of kidney function, eGFR values calculated with the CKD-EPI equation are not accurate in patients with acute kidney failure, extremes of body mass or the acutely ill. http://bigtincan/[place] [employer] http://bigtincan/[facility]ULSAnkf Blood specimen (specimen) 12/25/2017 5:50 AM EDT 12/25/2017 6:08 AM EDT Narrative Resulting Agency Comment Spec In Lab José Miguel Maher MD CHEMISTRY ORDERABLES Performing Organization Address City/[facility] Co de Phone Number [facility] [place] [address] * (ABNORMAL) Sodium (12/24/2017 12:19 AM EDT) Sodium 147(H) 135 - 145 mmol/L [facility] Blood specimen (specimen) 12/24/2017 12:19 AM EDT 12/24/2017 12:29 AM EDT Narrative Resulting Agency Comment Spec In Lab José Miguel Maher MD CHEMISTRY ORDERABLES Performing Organization Address [facility]/ZIP Co de Phone Number [facility] [place] [address] * (ABNORMAL) Differential, Automated (12/23/2017 6:41 AM EDT) Neutrophil % 40.1 % [facility] Neutrophil Absolute 1.93 1.70 - 6.10 x10(3)/mc L [facility] Lymph % 39.4 % [facility] Lymphocytes Abs 1.9 0.9 - 3.2 x10(3)/ L [facility] Monocyte % 11.6 % [facility] Monocyte Abs 0.6 0.3 - 0.9 x10(3)/[facility] LABORATORY Eos % 7.1 % [facility] Eosinophils Abs 0.3 0.0 - 0.4 x10(3)/[facility] LABORATORY Basophil % 0.8 % [facility] Baso Absolute 0.0 0.0 - 0.1 x10(3)/[facility] LABORATORY Immature Gran % 1.00 % [facility] Comment: Immature granulocytes(IG's)percentage and absolute count will include metamyelocytes, myelocytes, and promyelocytes. Blood smears from CBCs yielding IG's will be scanned manually for concordance. If this scan disagrees with the automated IG or if promyelocytes are noted, a manual differential will be performed. Immature Gran Absolute 0.05(H) 0.00 - 0.04 x10(3)/[facility] LABORATORY Blood specimen (specimen) 12/23/2017 6:41 AM EDT 12/23/2017 6:48 AM EDT Narrative Resulting Agency Comment Spec In Lab José Miguel Maher MD HEMATOLOGY ORDERABLE S Performing Organization Address City/State/[facility] Co de Phone Number [facility] [place] [address] * (ABNORMAL) Hemogram (12/23/2017 6:41 AM EDT) White Blood Cell 4.8 4.0 - 9.5 x10(3)/[facility] LABORATORY Red Blood Cell 4.62 4.58 - 5.54 x10(6)/[facility] LABORATORY Hemoglobin 10.6(L) 13.7 - 16.5 gm/dL [facility] Hematocrit 34.7(L) 40.5 - 48.5 % [facility] Mean Cell Volume 75.1(L) 82.9 - 93.1 fL [facility] Mean Cell Hemoglobin 22.9(L) 27.5 - 32.1 pg [facility] Mean Cell Hemoglobin Concentration 30.5(L) 32.0 - 35.7 gm/dL [facility] Platelet 286 145 - 357 x10(3)/mc L [facility] RDW Standard Deviation 45.8(H) 36.0 - 45.0 fL [facility] RDW coefficient of variation 17.0(H) 11.4 - 13.8 % [facility] Mean Platelet Volume 9.9 7.6 - 12.9 [facility] LABORATORY NRBC% auto 0.0 % [facility] NRBC Absolute 0.000 0.000 - 0.000 x10(3)/mc L [facility] Blood specimen (specimen) 12/23/2017 6:41 AM EDT 12/23/2017 6:48 AM EDT Narrative Resulting Agency Comment Spec In Lab José Miguel Maher MD HEMATOLOGY ORDERABLE S Performing Organization Address City/State/[facility] Co de Phone Number [facility] [place] [address] * (ABNORMAL) Basic Metabolic Panel (non-fasting) (12/23/2017 6:41 AM EDT) Glucose 87 65 - 199 mg/dL [facility] Comment:Diabetes: >=200 mg/d L plus symptoms Blood Urea Nitrogen 14 10 - 20 mg/dL [facility] Creatinine 0.61(L) 0.80 - 1.50 mg/dL [facility] Sodium 149(H) 135 - 145 mmol/L [facility] Potassium 4.0 3.5 - 5.0 mmol/L [facility] Comment: Please note: ??Patients with WBC >100,000 may have falsely elevated Potassium levels. ??For accurate Potassium quantification in these patients send serum separator tube (gold top) for subsequent determinations. ??Contact the Clinical Chemistry Laboratory if there are any questions. Chloride 111(H) 98 - 107 mmol/L [facility] Carbon Dioxide 24 22 - 31 mmol/L [facility] Anion Gap 14 5 - 15 mmol/L [facility] Calcium 9.6 8.5 - 10.5 mg/dL [facility] Est Glomerular Filtration Rate 137 >=60 mL/min/1. 73 m?? [facility] Comment: The eGFR was calculated using the CKD-EPI equation. As with all creatinine based estimates of kidney function, eGFR values calculated with the CKD-EPI equation are not accurate in patients with acute kidney failure, extremes of body mass or the acutely ill. http://bigtincan/[place] [employer] http://bigtincan/MCnkf eGFR 159 >=60 mL/min/1. 73 m?? [facility] Comment: The eGFR was calculated using the CKD-EPI equation. As with all creatinine based estimates of kidney function, eGFR values calculated with the CKD-EPI equation are not accurate in patients with acute kidney failure, extremes of body mass or the acutely ill. http://bigtincan/[place] [employer] http://[email or web address] Blood specimen (specimen) 12/23/2017 6:41 AM EDT 12/23/2017 6:48 AM EDT Narrative Resulting Agency Comment Spec In Lab José Miguel Maher MD CHEMISTRY ORDERABLES [facility] [place] [address] * Sodium (12/21/2017 8:00 PM EDT) Sodium 143 135 - 145 mmol/L [facility] Blood specimen (specimen) 12/21/2017 8:00 PM EDT 12/21/2017 8:06 PM EDT Narrative Resulting Agency Comment Spec In Lab José Miguel Maher MD CHEMISTRY ORDERABLES Performing Organization Address City/[facility]/ZIP Co de Phone Number [facility] [place] [address] * Scan, Peripheral Blood (12/21/2017 10:18 AM EDT) Pathologist [facility] Plat estimate Normal [facility] RBC Morphology Abnormal [facility] Microcyte gtr than 10 /HPF [facility] Tear Cell 1-5 /HPF [facility] Blood specimen (specimen) 12/21/2017 10:18 AM EDT 12/21/2017 10:38 AM EDT Narrative Resulting Agency Comment Spec In Lab José Miguel Maher MD HEMATOLOGY ORDERABLE S Performing Organization Address [facility]/ZIP Co de Phone Number [facility] [place] [address] * (ABNORMAL) Differential, Automated (12/21/2017 10:18 AM EDT) [facility] Neutrophil % 65.7 % [facility] Neutrophil Absolute 5.47 1.70 - 6.10 x10(3)/mc L [facility] Lymph % 19.0 % [facility] Lymphocytes Abs 1.6 0.9 - 3.2 x10(3)/mc L [facility] Monocyte % 9.0 % [facility] Monocyte Abs 0.8 0.3 - 0.9 x10(3)/mc L [facility] Eos % 4.6 % [facility] Eosinophils Abs 0.4 0.0 - 0.4 x10(3)/mc L [facility] Basophil % 0.7 % [facility] Baso Absolute 0.1 0.0 - 0.1 x10(3)/mc L [facility] Immature Gran % 1.00 % [facility] Comment: Immature granulocytes(IG's)percentage and absolute count will include metamyelocytes, myelocytes, and promyelocytes. Blood smears from CBCs yielding IG's will be scanned manually for concordance. If this scan disagrees with the automated IG or if promyelocytes are noted, a manual differential will be performed. Immature Gran Absolute 0.08(H) 0.00 - 0.04 x10(3)/ L [facility] Blood specimen (specimen) 12/21/2017 10:18 AM EDT 12/21/2017 10:38 AM EDT Narrative Resulting Agency Comment Spec In Lab José Miguel Mahre MD HEMATOLOGY ORDERABLE S [facility] [place] [address] * (ABNORMAL) Hemogram (12/21/2017 10:18 AM EDT) White Blood Cell 8.3 4.0 - 9.5 x10(3)/[facility] LABORATORY Red Blood Cell 5.42 4.58 - 5.54 x10(6)/[facility] LABORATORY Hemoglobin 12.5(L) 13.7 - 16.5 gm/dL [facility] Hematocrit 40.5 40.5 - 48.5 % [facility] Mean Cell Volume 74.7(L) 82.9 - 93.1 fL [facility] Mean Cell Hemoglobin 23.1(L) 27.5 - 32.1 pg [facility] Mean Cell Hemoglobin Concentration 30.9(L) 32.0 - 35.7 gm/dL [facility] Platelet 333 145 - 357 x10(3)/[facility] LABORATORY RDW Standard Deviation 45.7(H) 36.0 - 45.0 fL [facility] RDW coefficient of variation 17.3(H) 11.4 - 13.8 % [facility] Mean Platelet Volume 9.9 7.6 - 12.9 fL [facility] NRBC% auto 0.0 % [facility] NRBC Absolute 0.000 0.000 - 0.000 x10(3)/mc L [facility] Blood specimen (specimen) 12/21/2017 10:18 AM EDT 12/21/2017 10:38 AM EDT Narrative Resulting Agency Comment Spec In Lab José Miguel Maher MD HEMATOLOGY ORDERABLE S [facility] [place] [address] * (ABNORMAL) Basic Metabolic Panel (non-fasting) (12/21/2017 10:18 AM EDT) Glucose 134 65 - 199 mg/dL [facility] Comment:Diabetes: >=200 mg/d L plus symptoms Blood Urea Nitrogen 15 10 - 20 mg/dL [facility] Creatinine 0.82 0.80 - 1.50 mg/dL [facility] Sodium 147(H) 135 - 145 mmol/L [facility] Potassium 4.2 3.5 - 5.0 mmol/L [facility] Comment: Please note: ??Patients with WBC >100,000 may have falsely elevated Potassium levels. ??For accurate Potassium quantification in these patients send serum separator tube (gold top) for subsequent determinations. ??Contact the Clinical Chemistry Laboratory if there are any questions. Chloride 109(H) 98 - 107 mmol/L [facility] Carbon Dioxide 22 22 - 31 mmol/L [facility] Anion Gap 16(H) 5 - 15 mmol/L [facility] Calcium 10.2 8.5 - 10.5 mg/dL [facility] Est Glomerular Filtration Rate 121 >=60 mL/min/1. 73 m?? [facility] Comment: The eGFR was calculated using the CKD-EPI equation. As with all creatinine based estimates of kidney function, eGFR values calculated with the CKD-EPI equation are not accurate in patients with acute kidney failure, extremes of body mass or the acutely ill. http://[email or web address]/DHnkdep http://bigtincan/DHMCnkf eGFR 140 >=60 mL/min/1. 73 m?? [facility] Comment: The eGFR was calculated using the CKD-EPI equation. As with all creatinine based estimates of kidney function, eGFR values calculated with the CKD-EPI equation are not accurate in patients with acute kidney failure, extremes of body mass or the acutely ill. http://[email or web address]/DHnkdep http://bigtincan/DHMCnkf Blood specimen (specimen) 12/21/2017 10:18 AM EDT 12/21/2017 10:38 AM EDT Narrative Resulting Agency Comment Spec In Lab José Miguel Maher MD CHEMISTRY ORDERABLES Performing Organization Address [facility] Co de Phone Number [facility] [place] [address] * (ABNORMAL) Electrolytes panel (12/16/2017 9:01 AM EDT) Sodium 143 135 - 145 mmol/L [facility] Potassium 3.8 3.5 - 5.0 mmol/L [facility] Comment: Please note: ??Patients with WBC >100,000 may have falsely elevated Potassium levels. ??For accurate Potassium quantification in these patients send serum separator tube (gold top) for subsequent determinations. ??Contact the Clinical Chemistry Laboratory if there are any questions. Chloride 103 98 - 107 mmol/L [facility] Carbon Dioxide 23 22 - 31 mmol/L [facility] Anion Gap 17(H) 5 - 15 mmol/L [facility] Blood specimen (specimen) 12/16/2017 9:01 AM EDT 12/16/2017 9:12 AM EDT Narrative Resulting Agency Comment Spec In Lab Fran Gilliam MD CHEMISTRY ORDERABL ES Performing Organization Address [facility] Co de Phone Number [facility] [place] [address] * (ABNORMAL) Basic Metabolic Panel (non-fasting) (12/14/2017 6:09 PM EDT) Glucose 121 65 - 199 mg/dL [facility] Comment:Diabetes: >=200 mg/d L plus symptoms Blood Urea Nitrogen 11 10 - 20 mg/dL [facility] Creatinine 0.86 0.80 - 1.50 mg/dL [facility] Sodium 145 135 - 145 mmol/L [facility] Potassium 4.1 3.5 - 5.0 mmol/L [facility] Comment: Please note: ??Patients with WBC >100,000 may have falsely elevated Potassium levels. ??For accurate Potassium quantification in these patients send serum separator tube (gold top) for subsequent determinations. ??Contact the Clinical Chemistry Laboratory if there are any questions. Chloride 105 98 - 107 mmol/L [facility] Carbon Dioxide 21(L) 22 - 31 mmol/L [facility] Anion Gap 19(H) 5 - 15 mmol/L [facility] Calcium 8.9 8.5 - 10.5 mg/dL [facility] Est Glomerular Filtration Rate >60 >=60 [facility] Comment: The reported eGFR should be multiplied by 1.2 for patients. The MDRD is not an appropriate measure of renal function for patients with body mass extremes or in patients with acute kidney failure. http://bigtincan/DHnkdep http://bigtincan/DHMCnkf Blood specimen (specimen) 12/14/2017 6:09 PM EDT 12/14/2017 6:24 PM EDT Narrative Resulting Agency Comment Spec In Lab Fran Gilliam MD CHEMISTRY ORDERABL ES [facility] [place] [address] * Urine Hold (12/10/2017 11:09 AM EDT) Hold, Urine Sample in lab. [facility] Urine specimen (specimen) Urine / Unknown 12/10/2017 11:09 AM EDT 12/10/2017 11:58 AM EDT Kemi Camp APRN URINE ORDERABLES Performing Organization Address [facility]/ZIP Co de Phone Number [facility] [place] [address] * Urinalysis with reflex Culture (12/10/2017 11:07 AM EDT) Glucose, Urine Dipstick Negative Negative mg/dL [facility] Protein, Urine Dipstick Negative Negative mg/dL [facility] Bilirubin, Urine Dipstick Negative Negative mg/dL [facility] Comment: Clinical correlation required for positive Urine Bilirubin results as false positive may occur with some drugs and drug related products. If a false positive is suspected a serum total bilirubin should be considered if clinically indicated. Urobilinogen, Urine Dipstick Normal Normal mg/dL [facility] pH, Urn (dipstick) 6.0 5.0 - 8.0 [facility] Blood, Urine Dipstick Negative Negative mg/dL [facility] Ketone, Urine Dipstick Negative Negative mg/dL [facility] Nitrite, Urine Dipstick Negative Negative [facility] Leukocytes, Urine Dipstick Negative Negative [facility] Appearance, Urine Dipstick Clear Clear [facility] Specific [place] Urine Automated 1.015 1.002 - 1.030 [facility] Color, Urine Dipstick Straw Yellow [facility] Reflex to Culture No [facility] Urine specimen obtained by clean catch procedure (specimen) 12/10/2017 11:07 AM EDT 12/10/2017 11:58 AM EDT Narrative Resulting Agency Comment Spec In Lab Kemi Camp APRN URINE ORDERABLES Performing Organization Address City/[place] Hospital/ZIP Co de Phone Number [facility] [place] [address] * (ABNORMAL) BMP w/fasting Glucose (12/09/2017 4:07 AM EDT) [facility] Signature Glucose Fasting 90 65 - 99 mg/dL [facility] Comment: ?Fasting* Glucose Interpretive Criteria Normal [...] of Diabetes Mellitus, Position Statement from the [employer]. ??Diabetes Care, Volume 33, Supplement 1, Jul 2009 Blood Urea Nitrogen 20 10 - 20 mg/dL [facility] Creatinine 0.74(L) 0.80 - 1.50 mg/dL [facility] Sodium 139 135 - 145 mmol/L [facility] Potassium 3.8 3.5 - 5.0 mmol/L [facility] Comment: Please note: ??Patients with WBC >100,000 may have falsely elevated Potassium levels. ??For accurate Potassium quantification in these patients send serum separator tube (gold top) for subsequent determinations. ??Contact the Clinical Chemistry Laboratory if there are any questions. Chloride 102 98 - 107 mmol/L [facility] Carbon Dioxide 22 22 - 31 mmol/L [facility] Anion Gap 15 5 - 15 mmol/L [facility] Calcium 9.0 8.5 - 10.5 mg/dL [facility] Est Glomerular Filtration Rate >60 >=60 [facility] Comment: The reported eGFR should be multiplied by 1.2 for patients. The MDRD is not an appropriate measure of renal function for patients with body mass extremes or in patients with acute kidney failure. http://[email or web address].Cognitics/DHnkdep http://bigtincan/DHMCnkf Blood specimen (specimen) 12/09/2017 4:07 AM EDT 12/09/2017 4:24 AM EDT Narrative Resulting Agency Comment Spec In Lab Danay Rajan MD CHEMISTRY ORDERAB LES [facility] [place] [address] * (ABNORMAL) Differential, Automated (12/06/2017 7:48 AM EDT) Neutrophil % 37.8 % [facility] Neutrophil Absolute 1.75 1.70 - 6.10 x10(3)/mc L [facility] Lymph % 40.4 % [facility] Lymphocytes Abs 1.9 0.9 - 3.2 x10(3)/mc L [facility] Monocyte % 14.3 % [facility] Monocyte Abs 0.7 0.3 - 0.9 x10(3)/mc L [facility] Eos % 5.8 % [facility] Eosinophils Abs 0.3 0.0 - 0.4 x10(3)/ L [facility] Basophil % 0.6 % [facility] Baso Absolute 0.0 0.0 - 0.1 x10(3)/mc L [facility] Immature Gran % 1.10 % [facility] Comment: Immature granulocytes(IG's)percentage and absolute count will include metamyelocytes, myelocytes, and promyelocytes. Blood smears from CBCs yielding IG's will be scanned manually for concordance. If this scan disagrees with the automated IG or if promyelocytes are noted, a manual differential will be performed. Immature Gran Absolute 0.05(H) 0.00 - 0.04 x10(3)/mc L [facility] Blood specimen (specimen) 12/06/2017 7:48 AM EDT 12/06/2017 7:53 AM EDT Narrative Resulting Agency Comment Spec In Lab Constantino Courtney MD HEMATOLOGY ORDERABLE S [facility] [place] [address] * (ABNORMAL) Hemogram (12/06/2017 7:48 AM EDT) White Blood Cell 4.6 4.0 - 9.5 x10(3)/mc L [facility] Red Blood Cell 5.03 4.58 - 5.54 x10(6)/mc L [facility] Hemoglobin 11.7(L) 13.7 - 16.5 gm/dL [facility] Hematocrit 38.1(L) 40.5 - 48.5 % [facility] Mean Cell Volume 75.7(L) 82.9 - 93.1 fL [facility] Mean Cell Hemoglobin 23.3(L) 27.5 - 32.1 pg [facility] Mean Cell Hemoglobin Concentration 30.7(L) 32.0 - 35.7 gm/dL [facility] Platelet 291 145 - 357 x10(3)/[facility] LAB[facility] RDW Standard Deviation 45.1(H) 36.0 - 45.0 [facility] LABORATORY RDW coefficient of variation 16.8(H) 11.4 - 13.8 % [facility] Mean Platelet Volume 9.5 7.6 - 12.9 [facility] LABORATORY NRBC% auto 0.0 % [facility] NRBC Absolute 0.000 0.000 - 0.000 x10(3)/[facility] Blood specimen (specimen) 12/06/2017 7:48 AM EDT 12/06/2017 7:53 AM EDT Narrative Resulting Agency Comment Spec In Lab Constantino Courtney MD HEMATOLOGY ORDERABLE S [facility] [place] [address] * (ABNORMAL) Basic Metabolic Panel (non-fasting) (12/06/2017 7:48 AM EDT) Glucose 94 65 - 199 mg/dL [facility] Comment:Diabetes: >=200 mg/d L plus symptoms Blood Urea Nitrogen 23(H) 10 - 20 mg/dL [facility] Creatinine 0.64(L) 0.80 - 1.50 mg/dL [facility] Sodium 143 135 - 145 mmol/L [facility] Potassium 3.7 3.5 - 5.0 mmol/L [facility] Comment: Please note: ??Patients with WBC >100,000 may have falsely elevated Potassium levels. ??For accurate Potassium quantification in these patients send serum separator tube (gold top) for subsequent determinations. ??Contact the Clinical Chemistry Laboratory if there are any questions. Chloride 104 98 - 107 mmol/L [facility] Carbon Dioxide 24 22 - 31 mmol/L [facility] Anion Gap 15 5 - 15 mmol/L [facility] Calcium 8.9 8.5 - 10.5 mg/dL [facility] Est Glomerular Filtration Rate >60 >=60 [facility] Comment: The reported eGFR should be multiplied by 1.2 for patients. The MDRD is not an appropriate measure of renal function for patients with body mass extremes or in patients with acute kidney failure. http://[email or web address].Cognitics/DHnkdep http://Source4Style.Cognitics/DHMCnkf Blood specimen (specimen) 12/06/2017 7:48 AM EDT 12/06/2017 7:53 AM EDT Narrative Resulting Agency Comment Spec In Lab Constantino Courtney MD CHEMISTRY ORDERABLES [facility] [place] [address] * EKG 12 Lead (12/05/2017 5:29 PM EDT) Ventricular rate 110 BPM MUSE SYSTEM Atrial Rate 110 BPM MUSE SYSTEM P-R Interval 142 ms MUSE SYSTEM QRS Duration 94 ms MUSE SYSTEM Q-T Interval 334 ms MUSE SYSTEM QTC Calculated (Bezet) 452 ms MUSE SYSTEM Calculated P Deeth 33 degrees MUSE SYSTEM Calculated R Deeth 57 degrees MUSE SYSTEM Calculated T Deeth 60 degrees MUSE SYSTEM INTERPRETATION Sinus tachycardia Nonspecific ST/T wave abnormality Abnormal ECG When compared with ECG of 04-SEP-2017 22:30, Rate slower Confirmed by MD Oh, Sukhi Walker ([id number]) on 12/06/2017 10:46:47 AM MUSE SYSTEM 12/05/2017 5:29 PM EDT 12/06/2017 10:46 AM EDT Constantino Courtney MD ECG ORDERABLES Performing Organization Address [facility] Co de Phone Number MUSE SYSTEM * (ABNORMAL) Electrolytes panel (12/05/2017 1:17 PM EDT) Sodium 143 135 - 145 mmol/L [facility] Potassium 4.0 3.5 - 5.0 mmol/L [facility] Comment: Please note: ??Patients with WBC >100,000 may have falsely elevated Potassium levels. ??For accurate Potassium quantification in these patients send serum separator tube (gold top) for subsequent determinations. ??Contact the Clinical Chemistry Laboratory if there are any questions. Chloride 105 98 - 107 mmol/L [facility] Carbon Dioxide 21(L) 22 - 31 mmol/L [facility] Anion Gap 17(H) 5 - 15 mmol/L [facility] Blood specimen (specimen) 12/05/2017 1:17 PM EDT 12/05/2017 1:40 PM EDT Narrative Resulting Agency Comment Spec In Lab Fran Gilliam MD CHEMISTRY ORDERABL ES Performing Organization Address [facility] Co de Phone Number [facility] [place] [address] * Electrolytes panel (12/04/2017 3:16 PM EDT) Sodium 142 135 - 145 mmol/L [facility] Potassium 4.6 3.5 - 5.0 mmol/L [facility] Comment: result [id number] Please note: ??Patients with WBC >100,000 may have falsely elevated Potassium levels. ??For accurate Potassium quantification in these patients send serum separator tube (gold top) for subsequent determinations. ??Contact the Clinical Chemistry Laboratory if there are any questions. Chloride 106 98 - 107 mmol/L [facility] Carbon Dioxide 22 22 - 31 mmol/L [facility] Anion Gap 14 5 - 15 mmol/L [facility] Blood specimen (specimen) 12/04/2017 3:16 PM EDT 12/04/2017 3:27 PM EDT Narrative Resulting Agency Comment Spec In Lab Fran Gilliam MD CHEMISTRY ORDERABL ES Performing Organization Address [facility] [place] [address] * (ABNORMAL) Electrolytes panel (12/04/2017 6:27 AM EDT) Sodium 141 135 - 145 mmol/L [facility] Potassium 3.4(L) 3.5 - 5.0 mmol/L [facility] Comment: Please note: ??Patients with WBC >100,000 may have falsely elevated Potassium levels. ??For accurate Potassium quantification in these patients send serum separator tube (gold top) for subsequent determinations. ??Contact the Clinical Chemistry Laboratory if there are any questions. Chloride 102 98 - 107 mmol/L [facility] Carbon Dioxide 25 22 - 31 mmol/L [facility] Anion Gap 14 5 - 15 mmol/L [facility] Blood specimen (specimen) 12/04/2017 6:27 AM EDT 12/04/2017 6:39 AM EDT Narrative Resulting Agency Comment Spec In Lab Fran Gilliam MD CHEMISTRY ORDERABL ES Performing Organization Address [facility]/ZIP Co de Phone Number [facility] [place] [address] * (ABNORMAL) Basic Metabolic Panel (non-fasting) (12/03/2017 1:15 PM EDT) Glucose 96 65 - 199 mg/dL [facility] Comment:Diabetes: >=200 mg/d L plus symptoms Blood Urea Nitrogen 24(H) 10 - 20 mg/dL [facility] Creatinine 0.84 0.80 - 1.50 mg/dL [facility] Sodium 142 135 - 145 mmol/L [facility] Potassium 3.9 3.5 - 5.0 mmol/L [facility] Comment: Please note: ??Patients with WBC >100,000 may have falsely elevated Potassium levels. ??For accurate Potassium quantification in these patients send serum separator tube (gold top) for subsequent determinations. ??Contact the Clinical Chemistry Laboratory if there are any questions. Chloride 105 98 - 107 mmol/L [facility] Carbon Dioxide 20(L) 22 - 31 mmol/L [facility] Anion Gap 17(H) 5 - 15 mmol/L [facility] Calcium 9.2 8.5 - 10.5 mg/dL [facility] Est Glomerular Filtration Rate >60 >=60 [facility] Comment: The reported eGFR should be multiplied by 1.2 for patients. The MDRD is not an appropriate measure of renal function for patients with body mass extremes or in patients with acute kidney failure. http://[email or web address].Cognitics/DHnkdep http://Source4Style.Cognitics/DHMCnkf Blood specimen (specimen) 12/03/2017 1:15 PM EDT 12/03/2017 1:27 PM EDT Narrative Resulting Agency Comment Spec In Lab Fran Gilliam MD CHEMISTRY ORDERABL ES [facility] [place] [address] * (ABNORMAL) Electrolytes panel (12/03/2017 5:48 AM EDT) Sodium 144 135 - 145 mmol/L [facility] Potassium 3.5 3.5 - 5.0 mmol/L [facility] Comment: Please note: ??Patients with WBC >100,000 may have falsely elevated Potassium levels. ??For accurate Potassium quantification in these patients send serum separator tube (gold top) for subsequent determinations. ??Contact the Clinical Chemistry Laboratory if there are any questions. Chloride 106 98 - 107 mmol/L [facility] Carbon Dioxide 22 22 - 31 mmol/L [facility] Anion Gap 16(H) 5 - 15 mmol/L [facility] Blood specimen (specimen) 12/03/2017 5:48 AM EDT 12/03/2017 6:07 AM EDT Narrative Resulting Agency Comment Spec In Lab Fran Gilliam MD CHEMISTRY ORDERABL ES [facility] [place] [address] * (ABNORMAL) Electrolytes panel (12/02/2017 10:03 PM EDT) Sodium 146(H) 135 - 145 mmol/L [facility] Potassium 3.9 3.5 - 5.0 mmol/L [facility] Comment: Please note: ??Patients with WBC >100,000 may have falsely elevated Potassium levels. ??For accurate Potassium quantification in these patients send serum separator tube (gold top) for subsequent determinations. ??Contact the Clinical Chemistry Laboratory if there are any questions. Chloride 110(H) 98 - 107 mmol/L [facility] Carbon Dioxide 22 22 - 31 mmol/L [facility] Anion Gap 14 5 - 15 mmol/L [facility] Blood specimen (specimen) 12/02/2017 10:03 PM EDT 12/02/2017 10:11 PM EDT Narrative Resulting Agency Comment Spec In Lab Fran Gilliam MD CHEMISTRY ORDERABL ES Performing Organization Address City/[facility]/ZIP Co de Phone Number [facility] [place] [address] * (ABNORMAL) Sodium (12/02/2017 11:40 AM EDT) Sodium 150(H) 135 - 145 mmol/L [facility] Blood specimen (specimen) 12/02/2017 11:40 AM EDT 12/02/2017 11:59 AM EDT Narrative Resulting Agency Comment Spec In Lab Fran Gilliam MD CHEMISTRY ORDERABL ES Performing Organization Address [facility] Co de Phone Number [facility] [place] [address] * (ABNORMAL) Electrolytes panel (12/02/2017 7:52 AM EDT) Sodium 153(H) 135 - 145 mmol/L [facility] Potassium 3.7 3.5 - 5.0 mmol/L [facility] Comment: Please note: ??Patients with WBC >100,000 may have falsely elevated Potassium levels. ??For accurate Potassium quantification in these patients send serum separator tube (gold top) for subsequent determinations. ??Contact the Clinical Chemistry Laboratory if there are any questions. Chloride 114(H) 98 - 107 mmol/L [facility] Carbon Dioxide 22 22 - 31 mmol/L [facility] Anion Gap 17(H) 5 - 15 mmol/L [facility] Blood specimen (specimen) 12/02/2017 7:52 AM EDT 12/02/2017 7:58 AM EDT Narrative Resulting Agency Comment Spec In Lab Fran Gilliam MD CHEMISTRY ORDERABL ES Performing Organization Address [facility]/ZIP Co de Phone Number [facility] [place] [address] * (ABNORMAL) Basic Metabolic Panel (non-fasting) (12/01/2017 9:43 PM EDT) Glucose 132 65 - 199 mg/dL [facility] Comment:Diabetes: >=200 mg/d L plus symptoms Blood Urea Nitrogen 23(H) 10 - 20 mg/dL [facility] Creatinine 0.92 0.80 - 1.50 mg/dL [facility] Sodium 148(H) 135 - 145 mmol/L [facility] Potassium 3.6 3.5 - 5.0 mmol/L [facility] Comment: Please note: ??Patients with WBC >100,000 may have falsely elevated Potassium levels. ??For accurate Potassium quantification in these patients send serum separator tube (gold top) for subsequent determinations. ??Contact the Clinical Chemistry Laboratory if there are any questions. Chloride 111(H) 98 - 107 mmol/L [facility] Carbon Dioxide 25 22 - 31 mmol/L [facility] Anion Gap 12 5 - 15 mmol/L [facility] Calcium 8.6 8.5 - 10.5 mg/dL [facility] Est Glomerular Filtration Rate >60 >=60 [facility] Comment: The reported eGFR should be multiplied by 1.2 for patients. The MDRD is not an appropriate measure of renal function for patients with body mass extremes or in patients with acute kidney failure. http://bigtincan/DHnkdep http://bigtincan/DHMCnkf Blood specimen (specimen) 12/01/2017 9:43 PM EDT 12/01/2017 9:48 PM EDT Narrative Resulting Agency Comment Spec In Lab Fran Gilliam MD CHEMISTRY ORDERABL ES [facility] [place] [address] * (ABNORMAL) Basic Metabolic Panel (non-fasting) (12/01/2017 11:27 AM EDT) Glucose 99 65 - 199 mg/dL [facility] Comment:Diabetes: >=200 mg/d L plus symptoms Blood Urea Nitrogen 21(H) 10 - 20 mg/dL [facility] Creatinine 1.03 0.80 - 1.50 mg/dL [facility] Sodium 151(H) 135 - 145 mmol/L [facility] Potassium 4.0 3.5 - 5.0 mmol/L [facility] Comment: Please note: ??Patients with WBC >100,000 may have falsely elevated Potassium levels. ??For accurate Potassium quantification in these patients send serum separator tube (gold top) for subsequent determinations. ??Contact the Clinical Chemistry Laboratory if there are any questions. Chloride 114(H) 98 - 107 mmol/L [facility] Carbon Dioxide 24 22 - 31 mmol/L [facility] Anion Gap 13 5 - 15 mmol/L [facility] Calcium 9.3 8.5 - 10.5 mg/dL [facility] Est Glomerular Filtration Rate >60 >=60 [facility] Comment: The reported eGFR should be multiplied by 1.2 for patients. The MDRD is not an appropriate measure of renal function for patients with body mass extremes or in patients with acute kidney failure. http://[email or web address].Cognitics/DHnkdep http://Source4Style.Cognitics/DHMCnkf Blood specimen (specimen) 12/01/2017 11:27 AM EDT 12/01/2017 11:33 AM EDT Narrative Resulting Agency Comment Spec In Lab Fran Gilliam MD CHEMISTRY ORDERABL ES [facility] [place] [address] * T4, free (11/28/2017 10:52 AM EDT) Free T4 0.98 0.93 - 1.70 ng/dL [facility] Blood specimen (specimen) 11/28/2017 10:52 AM EDT 11/28/2017 11:07 AM EDT Narrative Resulting Agency Comment Spec In Lab Yadi Mccauley MD CHEMISTRY ORDERAB LES Performing Organization Address [facility]/ZIP Co de Phone Number [facility] [place] [address] * Basic Metabolic Panel (non-fasting) (11/26/2017 5:49 AM EDT) Glucose 84 65 - 199 mg/dL [facility] Comment:Diabetes: >=200 mg/d L plus symptoms Blood Urea Nitrogen 13 10 - 20 mg/dL [facility] Creatinine 0.80 0.80 - 1.50 mg/dL [facility] Sodium 143 135 - 145 mmol/L [facility] Potassium 3.7 3.5 - 5.0 mmol/L [facility] Comment: Please note: ??Patients with WBC >100,000 may have falsely elevated Potassium levels. ??For accurate Potassium quantification in these patients send serum separator tube (gold top) for subsequent determinations. ??Contact the Clinical Chemistry Laboratory if there are any questions. Chloride 105 98 - 107 mmol/L [facility] Carbon Dioxide 26 22 - 31 mmol/L [facility] Anion Gap 12 5 - 15 mmol/L [facility] Calcium 9.2 8.5 - 10.5 mg/dL [facility] Est Glomerular Filtration Rate >60 >=60 [facility] Comment: The reported eGFR should be multiplied by 1.2 for patients. The MDRD is not an appropriate measure of renal function for patients with body mass extremes or in patients with acute kidney failure. http://[email or web address].Cognitics/DHnkdep http://Source4Style.Cognitics/DHMCnkf Blood specimen (specimen) 11/26/2017 5:49 AM EDT 11/26/2017 6:03 AM EDT Narrative Resulting Agency Comment Spec In Lab Ren Sanchez III, MD CHEMISTRY ORDERABLES Performing Organization Address City/[facility]/ZIP Co de Phone Number [facility] [place] [address] * (ABNORMAL) Basic Metabolic Panel (non-fasting) (11/23/2017 9:53 AM EDT) Glucose 116 65 - 199 mg/dL [facility] Comment:Diabetes: >=200 mg/d L plus symptoms Blood Urea Nitrogen 11 10 - 20 mg/dL [facility] Creatinine 1.06 0.80 - 1.50 mg/dL [facility] Sodium 142 135 - 145 mmol/L [facility] Potassium 3.9 3.5 - 5.0 mmol/L [facility] Comment: Please note: ??Patients with WBC >100,000 may have falsely elevated Potassium levels. ??For accurate Potassium quantification in these patients send serum separator tube (gold top) for subsequent determinations. ??Contact the Clinical Chemistry Laboratory if there are any questions. Chloride 106 98 - 107 mmol/L [facility] Carbon Dioxide 21(L) 22 - 31 mmol/L [facility] Anion Gap 15 5 - 15 mmol/L [facility] Calcium 9.1 8.5 - 10.5 mg/dL [facility] Est Glomerular Filtration Rate >60 >=60 [facility] Comment: The reported eGFR should be multiplied by 1.2 for patients. The MDRD is not an appropriate measure of renal function for patients with body mass extremes or in patients with acute kidney failure. http://[email or web address].Cognitics/DHnkdep http://Source4Style.Cognitics/DHMCnkf Blood specimen (specimen) 11/23/2017 9:53 AM EDT 11/23/2017 10:10 AM EDT Narrative Resulting Agency Comment Spec In Lab Crista Aguilar MD CHEMISTRY ORDERABLE S [facility] [place] [address] * Basic Metabolic Panel (non-fasting) (11/22/2017 11:05 AM EDT) Glucose 106 65 - 199 mg/dL [facility] Comment:Diabetes: >=200 mg/d L plus symptoms Blood Urea Nitrogen 14 10 - 20 mg/dL [facility] Creatinine 0.84 0.80 - 1.50 mg/dL [facility] Sodium 140 135 - 145 mmol/L [facility] Potassium 4.0 3.5 - 5.0 mmol/L [facility] Comment: Please note: ??Patients with WBC >100,000 may have falsely elevated Potassium levels. ??For accurate Potassium quantification in these patients send serum separator tube (gold top) for subsequent determinations. ??Contact the Clinical Chemistry Laboratory if there are any questions. Chloride 101 98 - 107 mmol/L [facility] Carbon Dioxide 25 22 - 31 mmol/L [facility] Anion Gap 14 5 - 15 mmol/L [facility] Calcium 9.2 8.5 - 10.5 mg/dL [facility] Est Glomerular Filtration Rate >60 >=60 [facility] Comment: The reported eGFR should be multiplied by 1.2 for patients. The MDRD is not an appropriate measure of renal function for patients with body mass extremes or in patients with acute kidney failure. http://[email or web address].Cognitics/DHnkdep http://bigtincan/DHMCnkf Blood specimen (specimen) 11/22/2017 11:05 AM EDT 11/22/2017 11:14 AM EDT Narrative Resulting Agency Comment Spec In Lab Crista Aguilar MD CHEMISTRY ORDERABLE S [facility] [place] [address] * (ABNORMAL) T4, free (11/22/2017 11:05 AM EDT) Free T4 0.81(L) 0.93 - 1.70 ng/dL [facility] Blood specimen (specimen) 11/22/2017 11:05 AM EDT 11/22/2017 11:14 AM EDT Narrative Resulting Agency Comment Spec In Lab Yadi Mccauley MD CHEMISTRY ORDERAB LES [facility] [place] [address] * (ABNORMAL) Basic Metabolic Panel (non-fasting) (11/19/2017 5:00 PM EDT) Glucose 113 65 - 199 mg/dL [facility] Comment:Diabetes: >=200 mg/d L plus symptoms Blood Urea Nitrogen 12 10 - 20 mg/dL [facility] Creatinine 0.70(L) 0.80 - 1.50 mg/dL [facility] Sodium 134(L) 135 - 145 mmol/L [facility] Potassium 4.2 3.5 - 5.0 mmol/L [facility] Comment: Please note: ??Patients with WBC >100,000 may have falsely elevated Potassium levels. ??For accurate Potassium quantification in these patients send serum separator tube (gold top) for subsequent determinations. ??Contact the Clinical Chemistry Laboratory if there are any questions. Chloride 96(L) 98 - 107 mmol/L [facility] Carbon Dioxide 21(L) 22 - 31 mmol/L [facility] Anion Gap 17(H) 5 - 15 mmol/L [facility] Calcium 8.7 8.5 - 10.5 mg/dL [facility] Est Glomerular Filtration Rate >60 >=60 [facility] Comment: The reported eGFR should be multiplied by 1.2 for patients. The MDRD is not an appropriate measure of renal function for patients with body mass extremes or in patients with acute kidney failure. http://[email or web address].Cognitics/DHnkdep http://bigtincan/DHMCnkf Blood specimen (specimen) 11/19/2017 5:00 PM EDT 11/19/2017 5:06 PM EDT Narrative Resulting Agency Comment Spec In Lab Crista Aguilar MD CHEMISTRY ORDERABLE S Performing Organization Address City/[facility]/ZIP Co de Phone Number [facility] [place] [address] * (ABNORMAL) Basic Metabolic Panel (non-fasting) (11/19/2017 5:52 AM EDT) Glucose 85 65 - 199 mg/dL [facility] Comment:Diabetes: >=200 mg/d L plus symptoms Blood Urea Nitrogen 11 10 - 20 mg/dL [facility] Creatinine 0.79(L) 0.80 - 1.50 mg/dL [facility] Sodium 132(L) 135 - 145 mmol/L [facility] Potassium 3.7 3.5 - 5.0 mmol/L [facility] Comment: Please note: ??Patients with WBC >100,000 may have falsely elevated Potassium levels. ??For accurate Potassium quantification in these patients send serum separator tube (gold top) for subsequent determinations. ??Contact the Clinical Chemistry Laboratory if there are any questions. Chloride 93(L) 98 - 107 mmol/L [facility] Carbon Dioxide 24 22 - 31 mmol/L [facility] Anion Gap 15 5 - 15 mmol/L [facility] Calcium 8.9 8.5 - 10.5 mg/dL [facility] Est Glomerular Filtration Rate >60 >=60 [facility] Comment: The reported eGFR should be multiplied by 1.2 for patients. The MDRD is not an appropriate measure of renal function for patients with body mass extremes or in patients with acute kidney failure. http://[email or web address].Cognitics/DHnkdep http://Source4Style.com/DHMCnkf Blood specimen (specimen) 11/19/2017 5:52 AM EDT 11/19/2017 6:14 AM EDT Narrative Resulting Agency Comment Spec In Lab Crista Aguilar MD CHEMISTRY ORDERABLE S Performing Organization Address City/[facility]/ZIP Co de Phone Number [facility] [place] [address] * XR Pelvis Judet or In Out [...] better characterized on CT exam. Yossi Morin DO [facility] DX ORDERABLES * (ABNORMAL) Basic Metabolic Panel (non-fasting) (11/18/2017 5:15 AM EDT) Glucose 94 65 - 199 mg/dL [facility] Comment:Diabetes: >=200 mg/d L plus symptoms Blood Urea Nitrogen 12 10 - 20 mg/dL [facility] Creatinine 0.89 0.80 - 1.50 mg/dL [facility] Sodium 137 135 - 145 mmol/L [facility] Potassium 3.6 3.5 - 5.0 mmol/L [facility] Comment: Please note: ??Patients with WBC >100,000 may have falsely elevated Potassium levels. ??For accurate Potassium quantification in these patients send serum separator tube (gold top) for subsequent determinations. ??Contact the Clinical Chemistry Laboratory if there are any questions. Chloride 99 98 - 107 mmol/L [facility] Carbon Dioxide 25 22 - 31 mmol/L [facility] Anion Gap 13 5 - 15 mmol/L [facility] Calcium 8.4(L) 8.5 - 10.5 mg/dL [facility] Est Glomerular Filtration Rate >60 >=60 [facility] Comment: The reported eGFR should be multiplied by 1.2 for patients. The MDRD is not an appropriate measure of renal function for patients with body mass extremes or in patients with acute kidney failure. http://[email or web address].Cognitics/DHnkdep http://bigtincan/DHMCnkf Blood specimen (specimen) 11/18/2017 5:15 AM EDT 11/18/2017 5:21 AM EDT Narrative Resulting Agency Comment Spec In Lab Crista Aguilar MD CHEMISTRY ORDERABLE S [facility] [place] [address] * POCT Glucose (11/18/2017 3:09 AM EDT) Glucose, POC 146 65 - 199 mg/dL [facility] Comment: Supplemental ranges: <140 mg/dL before meals <180 mg/dL all other times of the day Blood specimen (specimen) 11/18/2017 3:09 AM EDT 11/18/2017 3:09 AM EDT Crista Aguilar MD POINT OF CARE TEST ORDERABLES [facility] [place] [address] * XR Pelvis w AP & Lat [...] No large knee effusion. Crista Aguilar MD IMG DX ORDERABLES * (ABNORMAL) BMP w/fasting Glucose (11/17/2017 9:09 AM EDT) [facility] Glucose Fasting 112(H) 65 - 99 mg/dL [facility] Comment: ?Fasting* Glucose Interpretive Criteria Normal [...] of Diabetes Mellitus, Position Statement from the [place] [employer]. ??Diabetes Care, Volume 33, Supplement 1, Jul 2009 Blood Urea Nitrogen 17 10 - 20 mg/dL [facility] Creatinine 0.87 0.80 - 1.50 mg/dL [facility] Sodium 139 135 - 145 mmol/L [facility] Potassium 3.4(L) 3.5 - 5.0 mmol/L [facility] Comment: Please note: ??Patients with WBC >100,000 may have falsely elevated Potassium levels. ??For accurate Potassium quantification in these patients send serum separator tube (gold top) for subsequent determinations. ??Contact the Clinical Chemistry Laboratory if there are any questions. Chloride 100 98 - 107 mmol/L [facility] Carbon Dioxide 24 22 - 31 mmol/L [facility] Anion Gap 15 5 - 15 mmol/L [facility] Calcium 8.9 8.5 - 10.5 mg/dL [facility] Est Glomerular Filtration Rate >60 >=60 [facility] Comment: The reported eGFR should be multiplied by 1.2 for patients. The MDRD is not an appropriate measure of renal function for patients with body mass extremes or in patients with acute kidney failure. http://[email or web address].Cognitics/DHnkdep http://bigtincan/DHMCnkf Blood specimen (specimen) 11/17/2017 9:09 AM EDT 11/17/2017 9:15 AM EDT Narrative Resulting Agency Comment Spec In Lab Kemi Camp APRN CHEMISTRY ORDERAB LES [facility] [place] [address] * T3 Total (11/17/2017 5:11 AM EDT) T3 Total 80 75 - 170 ng/dL [facility] Blood specimen (specimen) Venous Draw / Unknown 11/17/2017 5:11 AM EDT 11/17/2017 8:16 AM EDT Narrative Resulting Agency Comment Spec In Lab Yadi Mccauley MD CHEMISTRY ORDERAB LES [facility] [place] [address] * (ABNORMAL) T4, free (11/17/2017 5:11 AM EDT) Free T4 0.72(L) 0.93 - 1.70 ng/dL [facility] Blood specimen (specimen) Venous Draw / Unknown 11/17/2017 5:11 AM EDT 11/17/2017 8:16 AM EDT Narrative Resulting Agency Comment Spec In Lab Yadi Mccauley MD CHEMISTRY ORDERAB LES Performing Organization Address City/[facility]/ZIP Co de Phone Number [facility] [place] [address] * (ABNORMAL) Basic Metabolic Panel (non-fasting) (11/17/2017 5:11 AM EDT) [facility] Glucose 87 65 - 199 mg/dL [facility] Comment:Diabetes: >=200 mg/d L plus symptoms Blood Urea Nitrogen 17 10 - 20 mg/dL [facility] Creatinine 0.84 0.80 - 1.50 mg/dL [facility] Sodium 138 135 - 145 mmol/L [facility] Comment:result rechecked-jt Potassium 3.4(L) 3.5 - 5.0 mmol/L [facility] Comment: Please note: ??Patients with WBC >100,000 may have falsely elevated Potassium levels. ??For accurate Potassium quantification in these patients send serum separator tube (gold top) for subsequent determinations. ??Contact the Clinical Chemistry Laboratory if there are any questions. Chloride 99 98 - 107 mmol/L [facility] Comment:result rechecked-jt Carbon Dioxide 24 22 - 31 mmol/L [facility] Anion Gap 15 5 - 15 mmol/L [facility] Calcium 8.5 8.5 - 10.5 mg/dL [facility] Est Glomerular Filtration Rate >60 >=60 [facility] Comment: The reported eGFR should be multiplied by 1.2 for patients. The MDRD is not an appropriate measure of renal function for patients with body mass extremes or in patients with acute kidney failure. http://bigtincan/DHnkdep http://bigtincan/DHMCnkf Blood specimen (specimen) 11/17/2017 5:11 AM EDT 11/17/2017 5:26 AM EDT Narrative Resulting Agency Comment Spec In Lab Crista Aguilar MD CHEMISTRY ORDERABLE S [facility] [place] [address] * (ABNORMAL) Basic Metabolic Panel (non-fasting) (11/16/2017 7:52 PM EDT) Glucose 111 65 - 199 mg/dL [facility] Comment:Diabetes: >=200 mg/d L plus symptoms Blood Urea Nitrogen 20 10 - 20 mg/dL [facility] Creatinine 1.15 0.80 - 1.50 mg/dL [facility] Sodium 142 135 - 145 mmol/L [facility] Potassium 3.8 3.5 - 5.0 mmol/L [facility] Comment: Please note: ??Patients with WBC >100,000 may have falsely elevated Potassium levels. ??For accurate Potassium quantification in these patients send serum separator tube (gold top) for subsequent determinations. ??Contact the Clinical Chemistry Laboratory if there are any questions. Chloride 101 98 - 107 mmol/L [facility] Carbon Dioxide 25 22 - 31 mmol/L [facility] Anion Gap 16(H) 5 - 15 mmol/L [facility] Calcium 8.8 8.5 - 10.5 mg/dL [facility] Est Glomerular Filtration Rate >60 >=60 [facility] Comment: The reported eGFR should be multiplied by 1.2 for patients. The MDRD is not an appropriate measure of renal function for patients with body mass extremes or in patients with acute kidney failure. http://[email or web address].Cognitics/DHnkdep http://bigtincan/DHMCnkf Blood specimen (specimen) 11/16/2017 7:52 PM EDT 11/16/2017 7:57 PM EDT Narrative Resulting Agency Comment Spec In Lab Crista Aguilar MD CHEMISTRY ORDERABLE S Performing Organization Address [facility]/ZIP Co de Phone Number [facility] [place] [address] * Specific [place], Urine (11/16/2017 6:24 AM EDT) Specific [place] Urine Automated 1.025 1.002 - 1.030 [facility] Urine specimen (specimen) 11/16/2017 6:24 AM EDT 11/16/2017 6:56 AM EDT Narrative Resulting Agency Comment Spec In Lab Yadi Mccauley MD URINE ORDERABLES Performing Organization Address [facility] Co de Phone Number [facility] [place] [address] * Electrolytes, urine, random (11/16/2017 6:24 AM EDT) Sodium, Urine 98 mmol/L [facility] Potassium, Urine 49 mmol/L [facility] Chloride, Urine 75 mmol/L [facility] Urine specimen (specimen) 11/16/2017 6:24 AM EDT 11/16/2017 6:56 AM EDT Narrative Resulting Agency Comment Spec In Lab Yossi Morin DO URINE ORDERABLES Performing Organization Address [facility]/ZIP Co de Phone Number [facility] [place] [address] * Osmolality, urine, random (11/16/2017 6:24 AM EDT) Osmolality, Urine 493 50 - 1,200 mOsm/kg [facility] Urine specimen (specimen) 11/16/2017 6:24 AM EDT 11/16/2017 6:56 AM EDT Narrative Resulting Agency Comment Spec In Lab Yossi Morin DO URINE ORDERABLES [facility] [place] [address] * (ABNORMAL) Basic Metabolic Panel (non-fasting) (11/15/2017 5:44 PM EDT) Pathologist [facility] Glucose 109 65 - 199 mg/dL [facility] Comment:Diabetes: >=200 mg/d L plus symptoms Blood Urea Nitrogen 13 10 - 20 mg/dL [facility] Creatinine 0.87 0.80 - 1.50 mg/dL [facility] Sodium 152(H) 135 - 145 mmol/L [facility] Potassium 3.8 3.5 - 5.0 mmol/L [facility] Comment: Please note: ??Patients with WBC >100,000 may have falsely elevated Potassium levels. ??For accurate Potassium quantification in these patients send serum separator tube (gold top) for subsequent determinations. ??Contact the Clinical Chemistry Laboratory if there are any questions. Chloride 110(H) 98 - 107 mmol/L [facility] Carbon Dioxide 25 22 - 31 mmol/L [facility] Anion Gap 17(H) 5 - 15 mmol/L [facility] Calcium 9.3 8.5 - 10.5 mg/dL [facility] Est Glomerular Filtration Rate >60 >=60 [facility] Comment: The reported eGFR should be multiplied by 1.2 for patients. The MDRD is not an appropriate measure of renal function for patients with body mass extremes or in patients with acute kidney failure. http://bigtincan/DHnkdep http://bigtincan/DHMCnkf Blood specimen (specimen) 11/15/2017 5:44 PM EDT 11/15/2017 5:51 PM EDT Narrative Resulting Agency Comment Spec In Lab Crista Aguilar MD CHEMISTRY ORDERABLE S Performing Organization Address [facility]/ZIP Co de Phone Number [facility] [place] [address] * (ABNORMAL) T4, free (11/15/2017 5:15 AM EDT) Free T4 0.71(L) 0.93 - 1.70 ng/dL [facility] Blood specimen (specimen) Venous Draw / Unknown 11/15/2017 5:15 AM EDT 11/15/2017 5:28 AM EDT Narrative Resulting Agency Comment Spec In Lab Yadi Mccauley MD CHEMISTRY ORDERAB LES Performing Organization Address [facility]/ZIP Co de Phone Number [facility] [place] [address] * Magnesium (11/15/2017 5:15 AM EDT) [facility] Magnesium 0.92 0.69 - 1.07 mmol/L [facility] Blood specimen (specimen) 11/15/2017 5:15 AM EDT 11/15/2017 5:25 AM EDT Narrative Resulting Agency Comment Spec In Lab Yossi Morin DO CHEMISTRY ORDERABLES Performing Organization Address [facility] Co de Phone Number [facility] [place] [address] * (ABNORMAL) Basic Metabolic Panel (non-fasting) (11/15/2017 5:15 AM EDT) Glucose 109 65 - 199 mg/dL [facility] Comment:Diabetes: >=200 mg/d L plus symptoms Blood Urea Nitrogen 13 10 - 20 mg/dL [facility] Creatinine 0.92 0.80 - 1.50 mg/dL [facility] Sodium 151(H) 135 - 145 mmol/L [facility] Potassium 4.0 3.5 - 5.0 mmol/L [facility] Comment: Please note: ??Patients with WBC >100,000 may have falsely elevated Potassium levels. ??For accurate Potassium quantification in these patients send serum separator tube (gold top) for subsequent determinations. ??Contact the Clinical Chemistry Laboratory if there are any questions. Chloride 112(H) 98 - 107 mmol/L [facility] Comment:result rechecked-jt Carbon Dioxide 27 22 - 31 mmol/L [facility] Anion Gap 12 5 - 15 mmol/L [facility] Calcium 9.4 8.5 - 10.5 mg/dL [facility] Est Glomerular Filtration Rate >60 >=60 [facility] Comment: The reported eGFR should be multiplied by 1.2 for patients. The MDRD is not an appropriate measure of renal function for patients with body mass extremes or in patients with acute kidney failure. http://[email or web address].Cognitics/DHnkdep http://bigtincan/DHMCnkf Blood specimen (specimen) 11/15/2017 5:15 AM EDT 11/15/2017 5:25 AM EDT Narrative Resulting Agency Comment Spec In Lab Yossi Morin DO CHEMISTRY ORDERABLES [facility] [place] [address] * (ABNORMAL) Hemogram (11/14/2017 5:08 AM EDT) White Blood Cell 5.7 4.0 - 9.5 x10(3)/mc L [facility] Red Blood Cell 4.61 4.58 - 5.54 x10(6)/mc L [facility] Hemoglobin 11.5(L) 13.7 - 16.5 gm/dL [facility] Hematocrit 37.4(L) 40.5 - 48.5 % [facility] Mean Cell Volume 81.1(L) 82.9 - 93.1 [facility] Mean Cell Hemoglobin 24.9(L) 27.5 - 32.1 pg [facility] Mean Cell Hemoglobin Concentration 30.7(L) 32.0 - 35.7 gm/dL [facility] Platelet 274 145 - 357 x10(3)/mc L [facility] RDW Standard Deviation 48.6(H) 36.0 - 45.0 [facility] RDW coefficient of variation 16.5(H) 11.4 - 13.8 % [facility] Mean Platelet Volume 10.0 7.6 - 12.9 [facility] NRBC% auto 0.0 % [facility] NRBC Absolute 0.000 0.000 - 0.000 x10(3)/mc L [facility] Blood specimen (specimen) 11/14/2017 5:08 AM EDT 11/14/2017 5:44 AM EDT Narrative Resulting Agency Comment Spec In Lab Yossi Morin DO HEMATOLOGY ORDERABLE S Performing Organization Address [facility] Co de Phone Number [facility] [place] [address] * Magnesium (11/14/2017 5:08 AM EDT) Magnesium 0.84 0.69 - 1.07 mmol/L [facility] Blood specimen (specimen) 11/14/2017 5:08 AM EDT 11/14/2017 5:44 AM EDT Narrative Resulting Agency Comment Spec In Lab Yossi Morin DO CHEMISTRY ORDERABLES Performing Organization Address [facility] Co de Phone Number [facility] [place] [address] * Basic Metabolic Panel (non-fasting) (11/14/2017 5:08 AM EDT) Glucose 85 65 - 199 mg/dL [facility] Comment:Diabetes: >=200 mg/d L plus symptoms Blood Urea Nitrogen 12 10 - 20 mg/dL [facility] Creatinine 0.85 0.80 - 1.50 mg/dL [facility] Sodium 143 135 - 145 mmol/L [facility] Potassium 3.5 3.5 - 5.0 mmol/L [facility] Comment: Please note: ??Patients with WBC >100,000 may have falsely elevated Potassium levels. ??For accurate Potassium quantification in these patients send serum separator tube (gold top) for subsequent determinations. ??Contact the Clinical Chemistry Laboratory if there are any questions. Chloride 103 98 - 107 mmol/L [facility] Carbon Dioxide 28 22 - 31 mmol/L [facility] Anion Gap 12 5 - 15 mmol/L [facility] Calcium 9.2 8.5 - 10.5 mg/dL [facility] Est Glomerular Filtration Rate >60 >=60 [facility] Comment: The reported eGFR should be multiplied by 1.2 for patients. The MDRD is not an appropriate measure of renal function for patients with body mass extremes or in patients with acute kidney failure. http://bigtincan/DHnkdep http://bigtincan/DHMCnkf Blood specimen (specimen) 11/14/2017 5:08 AM EDT 11/14/2017 5:44 AM EDT Narrative Resulting Agency Comment Spec In Lab Yossi Morin DO CHEMISTRY ORDERABLES [facility] [place] [address] * Sodium (11/13/2017 7:16 PM EDT) Sodium 142 135 - 145 mmol/L [facility] Blood specimen (specimen) 11/13/2017 7:16 PM EDT 11/13/2017 7:26 PM EDT Narrative Resulting Agency Comment Spec In Lab Yossi Morin CHEMISTRY ORDERABLES [facility] [place] [address] * (ABNORMAL) Basic Metabolic Panel (non-fasting) (11/13/2017 6:33 AM EDT) Glucose 101 65 - 199 mg/dL [facility] Comment:Diabetes: >=200 mg/d L plus symptoms Blood Urea Nitrogen 11 10 - 20 mg/dL [facility] Creatinine 0.77(L) 0.80 - 1.50 mg/dL [facility] Sodium 148(H) 135 - 145 mmol/L [facility] Potassium Not Perf 3.5 - 5.0 mmol/L [facility] Comment: Unable to quantitate due to sample hemolysis. ??Sample redraw suggested. Called by: [facility], Read back by: Adia Clarke, Date/Time:11/13/17 09:21. Please note: ??Patients with WBC >100,000 may have falsely elevated Potassium levels. ??For accurate Potassium quantification in these patients send serum separator tube (gold top) for subsequent determinations. ??Contact the Clinical Chemistry Laboratory if there are any questions. Chloride 109(H) 98 - 107 mmol/L [facility] Carbon Dioxide Not Perf 22 - 31 mmol/L [facility] Comment: Lipemic interference. [facility] Corrected from 26 mMol/L on 11/13/17 07:54 by Tammie Caldwell Anion Gap Not Calculated 5 - 15 mmol/L [facility] Calcium 8.8 8.5 - 10.5 mg/dL [facility] Est Glomerular Filtration Rate >60 >=60 [facility] Comment: The reported eGFR should be multiplied by 1.2 for patients. The MDRD is not an appropriate measure of renal function for patients with body mass extremes or in patients with acute kidney failure. http://bigtincan/DHnkdep http://bigtincan/DHMCnkf Blood specimen (specimen) 11/13/2017 6:33 AM EDT 11/13/2017 6:45 AM EDT Narrative Resulting Agency Comment Spec In Lab Yossi Morin CHEMISTRY ORDERABLES [facility] [place] [address] * (ABNORMAL) Basic Metabolic Panel (non-fasting) (11/10/2017 7:36 AM EDT) Glucose 84 65 - 199 mg/dL [facility] Comment:Diabetes: >=200 mg/d L plus symptoms Blood Urea Nitrogen 18 10 - 20 mg/dL [facility] Creatinine 0.87 0.80 - 1.50 mg/dL [facility] Comment:Specimen ultracentri fuged due to gross lipemia Sodium 145 135 - 145 mmol/L [facility] Comment:Specimen ultracentri fuged due to gross lipemia Potassium 3.7 3.5 - 5.0 mmol/L [facility] Comment: Please note: ??Patients with WBC >100,000 may have falsely elevated Potassium levels. ??For accurate Potassium quantification in these patients send serum separator tube (gold top) for subsequent determinations. ??Contact the Clinical Chemistry Laboratory if there are any questions. Chloride 99 98 - 107 mmol/L [facility] Carbon Dioxide 26 22 - 31 mmol/L [facility] Anion Gap 20(H) 5 - 15 mmol/L [facility] Calcium 8.9 8.5 - 10.5 mg/dL [facility] Est Glomerular Filtration Rate >60 >=60 [facility] Comment: The reported eGFR should be multiplied by 1.2 for patients. The MDRD is not an appropriate measure of renal function for patients with body mass extremes or in patients with acute kidney failure. http://bigtincan/DHnkdep http://bigtincan/DHMCnkf Blood specimen (specimen) 11/10/2017 7:36 AM EDT 11/10/2017 7:40 AM EDT Narrative Resulting Agency Comment Spec In Lab Prosper Courtney MAX CHEMISTRY ORDERABLES [facility] [place] [address] * Basic Metabolic Panel (non-fasting) (11/10/2017 6:24 AM EDT) Glucose 88 65 - 199 mg/dL [facility] Comment:Diabetes: >=200 mg/d L plus symptoms Blood Urea Nitrogen 18 10 - 20 mg/dL [facility] Creatinine Not Perf 0.80 - 1.50 [facility] Comment: Unable to quantitate due to sample hemolysis. ??Sample redraw suggested. Called by: RENITA, Read back by: Emerald Domínguez, Date/Time:11/10/17 07:17. Sodium Not Perf 135 - 145 [facility] Comment: Unable to quantitate due to sample hemolysis. ??Sample redraw suggested. Called by: RENITA, Read back by: Emerald Domínguez, Date/Time:11/10/17 07:17. Potassium Not Perf 3.5 - 5.0 mmol/L [facility] Comment: Unable to quantitate due to [...] questions. Chloride 98 98 - 107 mmol/L [facility] Carbon Dioxide 27 22 - 31 mmol/L [facility] Anion Gap Unable to Calculate 5 - 15 mmol/L [facility] Calcium 8.8 8.5 - 10.5 mg/dL [facility] Est Glomerular Filtration Rate Not Calculated >=60 [facility] Comment: The reported eGFR should be multiplied by 1.2 for patients. The MDRD is not an appropriate measure of renal function for patients with body mass extremes or in patients with acute kidney failure. http://bigtincan/DHnkdep http://bigtincan/DHMCnkf Blood specimen (specimen) 11/10/2017 6:24 AM EDT 11/10/2017 6:33 AM EDT Narrative Resulting Agency Comment Spec In Lab Yossi Morin DO CHEMISTRY ORDERABLES [facility] [place] [address] * (ABNORMAL) Basic Metabolic Panel (non-fasting) (11/09/2017 8:41 PM EDT) Glucose 119 65 - 199 mg/dL [facility] Comment:Diabetes: >=200 mg/d L plus symptoms Blood Urea Nitrogen 18 10 - 20 mg/dL [facility] Creatinine 1.01 0.80 - 1.50 mg/dL [facility] Comment:Specimen ultracentri fuged due to gross lipemia Sodium 145 135 - 145 mmol/L [facility] Comment:Specimen ultracentri fuged due to gross lipemia Potassium Not Perf 3.5 - 5.0 mmol/L [facility] Comment: Unable to quantitate due to sample hemolysis. ??Sample redraw suggested. Called to Isabel ([address]), 11/09/17 21:33 Please note: ??Patients with WBC >100,000 may have falsely elevated Potassium levels. ??For accurate Potassium quantification in these patients send serum separator tube (gold top) for subsequent determinations. ??Contact the Clinical Chemistry Laboratory if there are any questions. Chloride 104 98 - 107 mmol/L [facility] Comment:Specimen ultracentri fuged due to gross lipemia Carbon Dioxide 23 22 - 31 mmol/L [facility] Anion Gap 18(H) 5 - 15 mmol/L [facility] Calcium 8.9 8.5 - 10.5 mg/dL [facility] Est Glomerular Filtration Rate >60 >=60 [facility] Comment: The reported eGFR should be multiplied by 1.2 for patients. The MDRD is not an appropriate measure of renal function for patients with body mass extremes or in patients with acute kidney failure. http://[email or web address].Cognitics/DHnkdep http://bigtincan/DHMCnkf Blood specimen (specimen) 11/09/2017 8:41 PM EDT 11/09/2017 8:46 PM EDT Narrative Resulting Agency Comment Spec In Lab Yossi Morin DO CHEMISTRY ORDERABLES Performing Organization Address City/[facility]/ZIP Co de Phone Number [facility] [place] [address] * Sodium (11/03/2017 4:03 AM EDT) Sodium 140 135 - 145 mmol/L [facility] Blood specimen (specimen) 11/03/2017 4:03 AM EDT 11/03/2017 4:36 AM EDT Narrative Resulting Agency Comment Spec In Lab Juliet Guerreroas DIRECTOR [employer] CHEMISTRY ORDERABLES Performing Organization Address City/[facility]/ZIP Co de Phone Number [facility] [place] [address] * Sodium (11/02/2017 7:38 AM EDT) Sodium 136 135 - 145 mmol/L [facility] Blood specimen (specimen) 11/02/2017 7:38 AM EDT 11/02/2017 8:15 AM EDT Narrative Resulting Agency Comment Spec In Lab Juliet Pack Medeiros DIRECTOR [employer] CHEMISTRY ORDERABLES Performing Organization Address City/[facility]/ZIP Co de Phone Number [facility] [place] [address] * Sodium (11/01/2017 5:01 AM EDT) Sodium 138 135 - 145 mmol/L [facility] Blood specimen (specimen) 11/01/2017 5:01 AM EDT 11/01/2017 5:34 AM EDT Narrative Resulting Agency Comment Spec In Lab Dillon Koch MD CHEMISTRY ORDERABLES Performing Organization Address City/[facility]/ZIP Co de Phone Number [facility] [place] [address] * Sodium (10/31/2017 10:19 AM EDT) Sodium 139 135 - 145 mmol/L [facility] Blood specimen (specimen) 10/31/2017 10:19 AM EDT 10/31/2017 10:39 AM EDT Narrative Resulting Agency Comment Spec In Lab Dillon Koch MD CHEMISTRY ORDERABLES Performing Organization Address [facility] Co de Phone Number [facility] [place] [address] * (ABNORMAL) Sodium (10/31/2017 6:37 AM EDT) Sodium 134(L) 135 - 145 mmol/L [facility] Blood specimen (specimen) 10/31/2017 6:37 AM EDT 10/31/2017 6:44 AM EDT Narrative Resulting Agency Comment Spec In Lab Dillon Koch MD CHEMISTRY ORDERABLES Performing Organization Address [facility] Co de Phone Number [facility] [place] [address] * Sodium (10/30/2017 3:53 AM EDT) Sodium 135 135 - 145 mmol/L [facility] Blood specimen (specimen) 10/30/2017 3:53 AM EDT 10/30/2017 3:58 AM EDT Narrative Resulting Agency Comment Spec In Lab Juliet Medeiros DIRECTOR [employer] CHEMISTRY ORDERABLES Performing Organization Address City/[facility]/ZIP Co de Phone Number [facility] [place] [address] * Sodium (10/29/2017 5:54 AM EDT) Sodium 138 135 - 145 mmol/L [facility] Comment:Called by: RENITA, Read back by: Jeannette, Date/Time:10/29/17 08:24. Blood specimen (specimen) 10/29/2017 5:54 AM EDT 10/29/2017 6:22 AM EDT Narrative Resulting Agency Comment Spec In Lab Juliet Medeiros DIRECTOR [employer] CHEMISTRY ORDERABLES Performing Organization Address [facility] Co de Phone Number [facility] [place] [address] * Basic Metabolic Panel (non-fasting) (10/28/2017 9:22 AM EDT) Glucose 116 65 - 199 mg/dL [facility] Comment:Diabetes: >=200 mg/d L plus symptoms Blood Urea Nitrogen 15 10 - 20 mg/dL [facility] Creatinine 0.85 0.80 - 1.50 mg/dL [facility] Sodium 137 135 - 145 mmol/L [facility] Potassium 3.7 3.5 - 5.0 mmol/L [facility] Comment: Please note: ??Patients with WBC >100,000 may have falsely elevated Potassium levels. ??For accurate Potassium quantification in these patients send serum separator tube (gold top) for subsequent determinations. ??Contact the Clinical Chemistry Laboratory if there are any questions. Chloride 99 98 - 107 mmol/L [facility] Carbon Dioxide 24 22 - 31 mmol/L [facility] Anion Gap 14 5 - 15 mmol/L [facility] Calcium 9.1 8.5 - 10.5 mg/dL [facility] Est Glomerular Filtration Rate >60 >=60 [facility] Comment: The reported eGFR should be multiplied by 1.2 for patients. The MDRD is not an appropriate measure of renal function for patients with body mass extremes or in patients with acute kidney failure. http://[email or web address].Cognitics/DHnkdep http://bigtincan/DHMCnkf Blood specimen (specimen) 10/28/2017 9:22 AM EDT 10/28/2017 9:31 AM EDT Narrative Resulting Agency Comment Spec In Lab Dillon Koch MD CHEMISTRY ORDERABLES [facility] [place] [address] * BMP w/fasting Glucose (10/28/2017 3:24 AM EDT) Glucose Fasting 82 65 - 99 mg/dL [facility] Comment: ?Fasting* Glucose Interpretive Criteria Normal [...] of Diabetes Mellitus, Position Statement from the [employer]. ??Diabetes Care, Volume 33, Supplement 1, Jul 2009 Blood Urea Nitrogen 16 10 - 20 mg/dL [facility] Creatinine 0.85 0.80 - 1.50 mg/dL [facility] Sodium 139 135 - 145 mmol/L [facility] Potassium 3.7 3.5 - 5.0 mmol/L [facility] Comment: Please note: ??Patients with WBC >100,000 may have falsely elevated Potassium levels. ??For accurate Potassium quantification in these patients send serum separator tube (gold top) for subsequent determinations. ??Contact the Clinical Chemistry Laboratory if there are any questions. Chloride 99 98 - 107 mmol/L [facility] Carbon Dioxide 26 22 - 31 mmol/L [facility] Anion Gap 14 5 - 15 mmol/L [facility] Calcium 8.9 8.5 - 10.5 mg/dL [facility] Est Glomerular Filtration Rate >60 >=60 [facility] Comment: The reported eGFR should be multiplied by 1.2 for patients. The MDRD is not an appropriate measure of renal function for patients with body mass extremes or in patients with acute kidney failure. http://bigtincan/DHnkdep http://bigtincan/DHMCnkf Blood specimen (specimen) 10/28/2017 3:24 AM EDT 10/28/2017 3:42 AM EDT Narrative Resulting Agency Comment Spec In Lab Isabel Donis MD CHEMISTRY ORDERABLES Performing Organization Address [facility] Co de Phone Number [facility] [place] [address] * Sodium (10/27/2017 6:16 AM EDT) Sodium 140 135 - 145 mmol/L [facility] Blood specimen (specimen) 10/27/2017 6:16 AM EDT 10/27/2017 6:21 AM EDT Narrative Resulting Agency Comment Spec In Lab Juliet Medeiros APRN CHEMISTRY ORDERABLES Performing Organization Address [facility] Co de Phone Number [facility] [place] [address] * BMP w/fasting Glucose (10/25/2017 3:16 AM EDT) Glucose Fasting 79 65 - 99 mg/dL [facility] Comment: ?Fasting* Glucose Interpretive Criteria Normal [...] of Diabetes Mellitus, Position Statement from the [employer]. ??Diabetes Care, Volume 33, Supplement 1, Jul 2009 Blood Urea Nitrogen 17 10 - 20 mg/dL [facility] Creatinine 0.90 0.80 - 1.50 mg/dL [facility] Sodium 139 135 - 145 mmol/L [facility] Potassium 3.7 3.5 - 5.0 mmol/L [facility] Comment: Please note: ??Patients with WBC >100,000 may have falsely elevated Potassium levels. ??For accurate Potassium quantification in these patients send serum separator tube (gold top) for subsequent determinations. ??Contact the Clinical Chemistry Laboratory if there are any questions. Chloride 100 98 - 107 mmol/L [facility] Carbon Dioxide 26 22 - 31 mmol/L [facility] Anion Gap 13 5 - 15 mmol/L [facility] Calcium 9.2 8.5 - 10.5 mg/dL [facility] Est Glomerular Filtration Rate >60 >=60 [facility] Comment: The reported eGFR should be multiplied by 1.2 for patients. The MDRD is not an appropriate measure of renal function for patients with body mass extremes or in patients with acute kidney failure. http://Source4Style.com/DHnkdep http://Source4Style.com/DHMCnkf Blood specimen (specimen) 10/25/2017 3:16 AM EDT 10/25/2017 3:42 AM EDT Narrative Resulting Agency Comment Spec In Lab Isabel Donis MD [place] [address] * (ABNORMAL) Differential, Automated (10/22/2017 5:02 AM EDT) Pathologist [facility] Neutrophil % 47.9 % [facility] Neutrophil Absolute 3.14 1.70 - 6.10 x10(3)/ L [facility] Lymph % 36.0 % [facility] Lymphocytes Abs 2.4 0.9 - 3.2 x10(3)/ L [facility] Monocyte % 10.7 % [facility] Monocyte Abs 0.7 0.3 - 0.9 x10(3)/ L [facility] Eos % 3.7 % [facility] Eosinophils Abs 0.2 0.0 - 0.4 x10(3)/[facility] Basophil % 0.8 % [facility] Baso Absolute 0.0 0.0 - 0.1 x10(3)/ L [facility] Immature Gran % 0.90 % [facility] Comment: Immature granulocytes(IG's)percentage and absolute count will include metamyelocytes, myelocytes, and promyelocytes. Blood smears from CBCs yielding IG's will be scanned manually for concordance. If this scan disagrees with the automated IG or if promyelocytes are noted, a manual differential will be performed. Immature Gran Absolute 0.06(H) 0.00 - 0.04 x10(3)/ L [facility] Blood specimen (specimen) 10/22/2017 5:02 AM EDT 10/22/2017 5:10 AM EDT Narrative Resulting Agency Comment Spec In Lab Kemi Camp APRN [place] [address] * (ABNORMAL) Hemogram (10/22/2017 5:02 AM EDT) [facility] White Blood Cell 6.6 4.0 - 9.5 x10(3)/[facility] Red Blood Cell 5.06 4.58 - 5.54 x10(6)/[facility] Hemoglobin 12.9(L) 13.7 - 16.5 gm/dL [facility] Hematocrit 40.5 40.5 - 48.5 % [facility] Mean Cell Volume 80.0(L) 82.9 - 93.1 [facility] Comment: This result has been called to HOLLEY MEI by Desean Pope on 10 22 2017 at 0600, and has been read back. Mean Cell Hemoglobin 25.5(L) 27.5 - 32.1 pg [facility] Mean Cell Hemoglobin Concentration 31.9(L) 32.0 - 35.7 gm/dL [facility] Platelet 339 145 - 357 x10(3)/[facility] RDW Standard Deviation 45.7(H) 36.0 - 45.0 [facility] RDW coefficient of variation 15.8(H) 11.4 - 13.8 % [facility] Mean Platelet Volume 9.8 7.6 - 12.9 [facility] NRBC% auto 0.0 % [facility] NRBC Absolute 0.000 0.000 - 0.000 x10(3)/[facility] Blood specimen (specimen) 10/22/2017 5:02 AM EDT 10/22/2017 5:10 AM EDT Narrative Resulting Agency Comment Spec In Lab Kemi Camp APRN HEMATOLOGY ORDERA BLES [facility] [place] [address] * (ABNORMAL) BMP w/fasting Glucose (10/22/2017 5:02 AM EDT) Pathologist [facility] Glucose Fasting 103(H) 65 - 99 mg/dL [facility] Comment: ?Fasting* Glucose Interpretive Criteria Normal [...] of Diabetes Mellitus, Position Statement from the [place] [employer]. ??Diabetes Care, Volume 33, Supplement 1, Jul 2009 Blood Urea Nitrogen 11 10 - 20 mg/dL [facility] Creatinine 0.74(L) 0.80 - 1.50 mg/dL [facility] Sodium 141 135 - 145 mmol/L [facility] Potassium 4.0 3.5 - 5.0 mmol/L [facility] Comment: Please note: ??Patients with WBC >100,000 may have falsely elevated Potassium levels. ??For accurate Potassium quantification in these patients send serum separator tube (gold top) for subsequent determinations. ??Contact the Clinical Chemistry Laboratory if there are any questions. Chloride 103 98 - 107 mmol/L [facility] Carbon Dioxide 22 22 - 31 mmol/L [facility] Anion Gap 16(H) 5 - 15 mmol/L [facility] Calcium 9.2 8.5 - 10.5 mg/dL [facility] Est Glomerular Filtration Rate >60 >=60 [facility] Comment: The reported eGFR should be multiplied by 1.2 for patients. The MDRD is not an appropriate measure of renal function for patients with body mass extremes or in patients with acute kidney failure. http://[email or web address].Cognitics/DHnkdep http://bigtincan/DHMCnkf Blood specimen (specimen) 10/22/2017 5:02 AM EDT 10/22/2017 5:10 AM EDT Narrative Resulting Agency Comment Spec In Lab Kemi Camp DIRECTOR [employer] CHEMISTRY ORDERAB LES [facility] [place] [address] * (ABNORMAL) BMP w/fasting Glucose (10/21/2017 4:03 AM EDT) Glucose Fasting 90 65 - 99 mg/dL [facility] Comment: ?Fasting* Glucose Interpretive Criteria Normal [...] of Diabetes Mellitus, Position Statement from the [employer]. ??Diabetes Care, Volume 33, Supplement [...] of Diabetes Mellitus, Position Statement from the [employer]. ??Diabetes Care, Volume 33, Supplement 1, Jul 2009 Corrected from 90 mg/dL on 10/21/17 05:22 by Hannah Saenz Blood Urea Nitrogen 16 10 - 20 mg/dL [facility] Creatinine 0.91 0.80 - 1.50 mg/dL [facility] Sodium 134(L) 135 - 145 mmol/L [facility] Potassium 4.3 3.5 - 5.0 mmol/L [facility] Comment: Please note: ??Patients with WBC >100,000 may have falsely elevated Potassium levels. ??For accurate Potassium quantification in these patients send serum separator tube (gold top) for subsequent determinations. ??Contact the Clinical Chemistry Laboratory if there are any questions. Chloride 95(L) 98 - 107 mmol/L [facility] Carbon Dioxide 23 22 - 31 mmol/L [facility] Anion Gap 16(H) 5 - 15 mmol/L [facility] Calcium 9.5 8.5 - 10.5 mg/dL [facility] Est Glomerular Filtration Rate >60 >=60 [facility] Comment: The reported eGFR should be multiplied by 1.2 for patients. The MDRD is not an appropriate measure of renal function for patients with body mass extremes or in patients with acute kidney failure. http://bigtincan/nkdep http://bigtincan/[facility] – TULSAnkf Blood specimen (specimen) 10/21/2017 4:03 AM EDT 10/21/2017 4:11 AM EDT Narrative Resulting Agency Comment Spec In Lab Kemi Camp APRN CHEMISTRY ORDERAB LES [facility] [place] [address] * CT Face wo Contrast (10/20/2017 12:07 [...] [employer] of the mandible. Dillon Koch MD IMG CT ORDERABLES * (ABNORMAL) Basic Metabolic Panel (non-fasting) (10/19/2017 9:55 AM EDT) Glucose 92 65 - 199 mg/dL [facility] Comment:Diabetes: >=200 mg/d L plus symptoms Blood Urea Nitrogen 16 10 - 20 mg/dL [facility] Creatinine 0.98 0.80 - 1.50 mg/dL [facility] Sodium 141 135 - 145 mmol/L [facility] Potassium 3.8 3.5 - 5.0 mmol/L [facility] Comment: Please note: ??Patients with WBC >100,000 may have falsely elevated Potassium levels. ??For accurate Potassium quantification in these patients send serum separator tube (gold top) for subsequent determinations. ??Contact the Clinical Chemistry Laboratory if there are any questions. Chloride 101 98 - 107 mmol/L [facility] Carbon Dioxide 23 22 - 31 mmol/L [facility] Anion Gap 17(H) 5 - 15 mmol/L [facility] Calcium 9.1 8.5 - 10.5 mg/dL [facility] Est Glomerular Filtration Rate >60 >=60 [facility] Comment: The reported eGFR should be multiplied by 1.2 for patients. The MDRD is not an appropriate measure of renal function for patients with body mass extremes or in patients with acute kidney failure. [email or web address] Blood specimen (specimen) 10/19/2017 9:55 AM EDT 10/19/2017 9:59 AM EDT Narrative Resulting Agency Comment Spec In Lab Isabel Donis MD CHEMISTRY ORDERABLES [facility] [place] [phone] * (ABNORMAL) Basic Metabolic Panel (non-fasting) (10/17/2017 6:27 PM EDT) Glucose 129 65 - 199 mg/dL [facility] Comment:Diabetes: >=200 mg/d L plus symptoms Blood Urea Nitrogen 15 10 - 20 mg/dL [facility] Creatinine 0.86 0.80 - 1.50 mg/dL [facility] Sodium 142 135 - 145 mmol/L [facility] Potassium Not Perf 3.5 - 5.0 mmol/L [facility] Comment: Unable to quantitate due to sample hemolysis. ??Sample redraw suggested. Please note: ??Patients with WBC >100,000 may have falsely elevated Potassium levels. ??For accurate Potassium quantification in these patients send serum separator tube (gold top) for subsequent determinations. ??Contact the Clinical Chemistry Laboratory if there are any questions. Chloride 102 98 - 107 mmol/L [facility] Carbon Dioxide 22 22 - 31 mmol/L [facility] Anion Gap 18(H) 5 - 15 mmol/L [facility] Calcium 8.8 8.5 - 10.5 mg/dL [facility] Est Glomerular Filtration Rate >60 >=60 [facility] Comment: The reported eGFR should be multiplied by 1.2 for patients. The MDRD is not an appropriate measure of renal function for patients with body mass extremes or in patients with acute kidney failure. [email or web address] Blood specimen (specimen) 10/17/2017 6:27 PM EDT 10/17/2017 7:26 PM EDT Narrative Resulting Agency Comment Spec In Lab Kalpana Rubin MD CHEMISTRY ORDERABLES Performing Organization Address City/State/[facility] Co de Phone Number [facility] [place] [phone] * Basic Metabolic Panel (non-fasting) (10/16/2017 10:26 AM EDT) Glucose 124 65 - 199 mg/dL [facility] Comment:Diabetes: >=200 mg/d L plus symptoms Blood Urea Nitrogen 16 10 - 20 mg/dL [facility] Creatinine 0.86 0.80 - 1.50 mg/dL [facility] Sodium 141 135 - 145 mmol/L [facility] Potassium 4.0 3.5 - 5.0 mmol/L [facility] Comment: Please note: ??Patients with WBC >100,000 may have falsely elevated Potassium levels. ??For accurate Potassium quantification in these patients send serum separator tube (gold top) for subsequent determinations. ??Contact the Clinical Chemistry Laboratory if there are any questions. Chloride 104 98 - 107 mmol/L [facility] Carbon Dioxide 22 22 - 31 mmol/L [facility] Anion Gap 15 5 - 15 mmol/L [facility] Calcium 9.2 8.5 - 10.5 mg/dL [facility] Est Glomerular Filtration Rate >60 >=60 [facility] Comment: The reported eGFR should be multiplied by 1.2 for patients. The MDRD is not an appropriate measure of renal function for patients with body mass extremes or in patients with acute kidney failure. [email or web address] Blood specimen (specimen) 10/16/2017 10:26 AM EDT 10/16/2017 10:34 AM EDT Narrative Resulting Agency Comment Spec In Lab Dillon Koch MD CHEMISTRY ORDERABLES [facility] [place] [address] * Basic Metabolic Panel (non-fasting) (10/15/2017 8:27 AM EDT) Glucose 85 65 - 199 mg/dL [facility] Comment:Diabetes: >=200 mg/d L plus symptoms Blood Urea Nitrogen 16 10 - 20 mg/dL [facility] Creatinine 0.99 0.80 - 1.50 mg/dL [facility] Sodium 140 135 - 145 mmol/L [facility] Potassium 3.7 3.5 - 5.0 mmol/L [facility] Comment: Please note: ??Patients with WBC >100,000 may have falsely elevated Potassium levels. ??For accurate Potassium quantification in these patients send serum separator tube (gold top) for subsequent determinations. ??Contact the Clinical Chemistry Laboratory if there are any questions. Chloride 101 98 - 107 mmol/L [facility] Carbon Dioxide 24 22 - 31 mmol/L [facility] Anion Gap 15 5 - 15 mmol/L [facility] Calcium 8.9 8.5 - 10.5 mg/dL [facility] Est Glomerular Filtration Rate >60 >=60 [facility] Comment: The reported eGFR should be multiplied by 1.2 for patients. The MDRD is not an appropriate measure of renal function for patients with body mass extremes or in patients with acute kidney failure. [email or web address] Blood specimen (specimen) 10/15/2017 8:27 AM EDT 10/15/2017 8:33 AM EDT Narrative Resulting Agency Comment Spec In Lab Dillon Koch MD CHEMISTRY ORDERABLES [facility] [place] [address] * (ABNORMAL) Basic Metabolic Panel (non-fasting) (10/14/2017 1:36 PM EDT) Glucose 99 65 - 199 mg/dL [facility] Comment:Diabetes: >=200 mg/d L plus symptoms Blood Urea Nitrogen 18 10 - 20 mg/dL [facility] Creatinine 0.85 0.80 - 1.50 mg/dL [facility] Sodium 140 135 - 145 mmol/L [facility] Potassium 3.6 3.5 - 5.0 mmol/L [facility] Comment: Please note: ??Patients with WBC >100,000 may have falsely elevated Potassium levels. ??For accurate Potassium quantification in these patients send serum separator tube (gold top) for subsequent determinations. ??Contact the Clinical Chemistry Laboratory if there are any questions. Chloride 100 98 - 107 mmol/L [facility] Carbon Dioxide 23 22 - 31 mmol/L [facility] Anion Gap 17(H) 5 - 15 mmol/L [facility] Calcium 9.3 8.5 - 10.5 mg/dL [facility] Est Glomerular Filtration Rate >60 >=60 [facility] Comment: The reported eGFR should be multiplied by 1.2 for patients. The MDRD is not an appropriate measure of renal function for patients with body mass extremes or in patients with acute kidney failure. [email or web address] Blood specimen (specimen) 10/14/2017 1:36 PM EDT 10/14/2017 1:44 PM EDT Narrative Resulting Agency Comment Spec In Lab Dillon Koch MD CHEMISTRY ORDERABLES [facility] [place] [address] * Basic Metabolic Panel (non-fasting) (10/13/2017 11:54 PM EDT) Glucose 95 65 - 199 mg/dL [facility] Comment:Diabetes: >=200 mg/d L plus symptoms Blood Urea Nitrogen 15 10 - 20 mg/dL [facility] Creatinine 0.88 0.80 - 1.50 mg/dL [facility] Sodium 140 135 - 145 mmol/L [facility] Potassium 3.8 3.5 - 5.0 mmol/L [facility] Comment: Please note: ??Patients with WBC >100,000 may have falsely elevated Potassium levels. ??For accurate Potassium quantification in these patients send serum separator tube (gold top) for subsequent determinations. ??Contact the Clinical Chemistry Laboratory if there are any questions. Chloride 103 98 - 107 mmol/L [facility] Carbon Dioxide 24 22 - 31 mmol/L [facility] Anion Gap 13 5 - 15 mmol/L [facility] Calcium 8.6 8.5 - 10.5 mg/dL [facility] Est Glomerular Filtration Rate >60 >=60 [facility] Comment: The reported eGFR should be multiplied by 1.2 for patients. The MDRD is not an appropriate measure of renal function for patients with body mass extremes or in patients with acute kidney failure. [email or web address] Blood specimen (specimen) 10/13/2017 11:54 PM EDT 10/13/2017 11:57 PM EDT Narrative Resulting Agency Comment Spec In Lab Dillon Koch MD CHEMISTRY ORDERABLES [facility] [place] [address] * (ABNORMAL) Basic Metabolic Panel (non-fasting) (10/13/2017 6:12 PM EDT) Glucose 107 65 - 199 mg/dL [facility] Comment:Diabetes: >=200 mg/d L plus symptoms Blood Urea Nitrogen 14 10 - 20 mg/dL [facility] Creatinine 0.69(L) 0.80 - 1.50 mg/dL [facility] Sodium 143 135 - 145 mmol/L [facility] Potassium 3.8 3.5 - 5.0 mmol/L [facility] Comment: Please note: ??Patients with WBC >100,000 may have falsely elevated Potassium levels. ??For accurate Potassium quantification in these patients send serum separator tube (gold top) for subsequent determinations. ??Contact the Clinical Chemistry Laboratory if there are any questions. Chloride 104 98 - 107 mmol/L [facility] Carbon Dioxide 23 22 - 31 mmol/L [facility] Anion Gap 16(H) 5 - 15 mmol/L [facility] Calcium 8.7 8.5 - 10.5 mg/dL [facility] Est Glomerular Filtration Rate >60 >=60 [facility] Comment: The reported eGFR should be multiplied by 1.2 for patients. The MDRD is not an appropriate measure of renal function for patients with body mass extremes or in patients with acute kidney failure. [email or web address] [email or web address] Blood specimen (specimen) 10/13/2017 6:12 PM EDT 10/13/2017 6:18 PM EDT Narrative Resulting Agency Comment Spec In Lab Dillon Koch MD CHEMISTRY ORDERABLES [facility] [place] [address] * XR Pelvis Judet or In Out [...] device. Noappreciable overlying sclerosis or bony callus. Authorizing Provider Result Zeina Koch MD IMG DX ORDERABLES * (ABNORMAL) Basic Metabolic Panel (non-fasting) (10/13/2017 3:34 AM EDT) Glucose 93 65 - 199 mg/dL [facility] Comment:Diabetes: >=200 mg/d L plus symptoms Blood Urea Nitrogen 16 10 - 20 mg/dL [facility] Creatinine 0.74(L) 0.80 - 1.50 mg/dL [facility] Sodium 144 135 - 145 mmol/L [facility] Potassium 3.9 3.5 - 5.0 mmol/L [facility] Comment: Please note: ??Patients with WBC >100,000 may have falsely elevated Potassium levels. ??For accurate Potassium quantification in these patients send serum separator tube (gold top) for subsequent determinations. ??Contact the Clinical Chemistry Laboratory if there are any questions. Chloride 105 98 - 107 mmol/L [facility] Carbon Dioxide 23 22 - 31 mmol/L [facility] Anion Gap 16(H) 5 - 15 mmol/L [facility] Calcium 9.1 8.5 - 10.5 mg/dL [facility] Est Glomerular Filtration Rate >60 >=60 [facility] Comment: The reported eGFR should be multiplied by 1.2 for patients. The MDRD is not an appropriate measure of renal function for patients with body mass extremes or in patients with acute kidney failure. [email or web address] [email or web address] Blood specimen (specimen) 10/13/2017 3:34 AM EDT 10/13/2017 4:00 AM EDT Narrative Resulting Agency Comment Spec In Lab Authorizing Provider Result Zeina Koch MD CHEMISTRY ORDERABLES [facility] [place] [address] * (ABNORMAL) Basic Metabolic Panel (non-fasting) (10/12/2017 7:09 PM EDT) Glucose 80 65 - 199 mg/dL [facility] Comment:Diabetes: >=200 mg/d L plus symptoms Blood Urea Nitrogen 17 10 - 20 mg/dL [facility] Creatinine 0.80 0.80 - 1.50 mg/dL [facility] Sodium 148(H) 135 - 145 mmol/L [facility] Potassium 3.6 3.5 - 5.0 mmol/L [facility] Comment: Please note: ??Patients with WBC >100,000 may have falsely elevated Potassium levels. ??For accurate Potassium quantification in these patients send serum separator tube (gold top) for subsequent determinations. ??Contact the Clinical Chemistry Laboratory if there are any questions. Chloride 106 98 - 107 mmol/L [facility] Carbon Dioxide 26 22 - 31 mmol/L [facility] Anion Gap 16(H) 5 - 15 mmol/L [facility] Calcium 9.2 8.5 - 10.5 mg/dL [facility] Est Glomerular Filtration Rate >60 >=60 [facility] Comment: The reported eGFR should be multiplied by 1.2 for patients. The MDRD is not an appropriate measure of renal function for patients with body mass extremes or in patients with acute kidney failure. [email or web address] [email or web address] Blood specimen (specimen) 10/12/2017 7:09 PM EDT 10/13/2017 5:09 AM EDT Narrative Resulting Agency Comment Spec In Lab Dillon Koch MD CHEMISTRY ORDERABLES [facility] [place] [address] * (ABNORMAL) Basic Metabolic Panel (non-fasting) (10/12/2017 11:33 AM EDT) Glucose 117 65 - 199 mg/dL [facility] Comment:Diabetes: >=200 mg/d L plus symptoms Blood Urea Nitrogen 19 10 - 20 mg/dL [facility] Creatinine 0.78(L) 0.80 - 1.50 mg/dL [facility] Sodium 146(H) 135 - 145 mmol/L [facility] Potassium 3.8 3.5 - 5.0 mmol/L [facility] Comment: Please note: ??Patients with WBC >100,000 may have falsely elevated Potassium levels. ??For accurate Potassium quantification in these patients send serum separator tube (gold top) for subsequent determinations. ??Contact the Clinical Chemistry Laboratory if there are any questions. Chloride 108(H) 98 - 107 mmol/L [facility] Carbon Dioxide 22 22 - 31 mmol/L [facility] Anion Gap 16(H) 5 - 15 mmol/L [facility] Calcium 9.2 8.5 - 10.5 mg/dL [facility] Est Glomerular Filtration Rate >60 >=60 [facility] Comment: The reported eGFR should be multiplied by 1.2 for patients. The MDRD is not an appropriate measure of renal function for patients with body mass extremes or in patients with acute kidney failure. [email or web address] Blood specimen (specimen) 10/12/2017 11:33 AM EDT 10/12/2017 11:37 AM EDT Narrative Resulting Agency Comment Spec In Lab Dillon Koch MD CHEMISTRY ORDERABLES [facility] [place] [address] * Basic Metabolic Panel (non-fasting) (10/12/2017 3:34 AM EDT) Glucose 106 65 - 199 mg/dL [facility] Comment:Diabetes: >=200 mg/d L plus symptoms Blood Urea Nitrogen 20 10 - 20 mg/dL [facility] Creatinine 0.93 0.80 - 1.50 mg/dL [facility] Sodium 145 135 - 145 mmol/L [facility] Potassium 3.6 3.5 - 5.0 mmol/L [facility] Comment: Please note: ??Patients with WBC >100,000 may have falsely elevated Potassium levels. ??For accurate Potassium quantification in these patients send serum separator tube (gold top) for subsequent determinations. ??Contact the Clinical Chemistry Laboratory if there are any questions. Chloride 104 98 - 107 mmol/L [facility] Carbon Dioxide 26 22 - 31 mmol/L [facility] Anion Gap 15 5 - 15 mmol/L [facility] Calcium 9.1 8.5 - 10.5 mg/dL [facility] Est Glomerular Filtration Rate >60 >=60 [facility] Comment: The reported eGFR should be multiplied by 1.2 for patients. The MDRD is not an appropriate measure of renal function for patients with body mass extremes or in patients with acute kidney failure. [email or web address] Blood specimen (specimen) 10/12/2017 3:34 AM EDT 10/12/2017 4:02 AM EDT Narrative Resulting Agency Comment Spec In Lab Dillon Koch MD CHEMISTRY ORDERABLES [facility] [place] [address] * (ABNORMAL) Basic Metabolic Panel (non-fasting) (10/11/2017 8:48 PM EDT) Glucose 129 65 - 199 mg/dL [facility] Comment:Diabetes: >=200 mg/d L plus symptoms Blood Urea Nitrogen 22(H) 10 - 20 mg/dL [facility] Creatinine 1.03 0.80 - 1.50 mg/dL [facility] Sodium 143 135 - 145 mmol/L [facility] Potassium 4.0 3.5 - 5.0 mmol/L [facility] Comment: Please note: ??Patients with WBC >100,000 may have falsely elevated Potassium levels. ??For accurate Potassium quantification in these patients send serum separator tube (gold top) for subsequent determinations. ??Contact the Clinical Chemistry Laboratory if there are any questions. Chloride 102 98 - 107 mmol/L [facility] Carbon Dioxide 22 22 - 31 mmol/L [facility] Anion Gap 19(H) 5 - 15 mmol/L [facility] Calcium 9.3 8.5 - 10.5 mg/dL [facility] Est Glomerular Filtration Rate >60 >=60 [facility] Comment: The reported eGFR should be multiplied by 1.2 for patients. The MDRD is not an appropriate measure of renal function for patients with body mass extremes or in patients with acute kidney failure. [email or web address] Blood specimen (specimen) 10/11/2017 8:48 PM EDT 10/11/2017 8:51 PM EDT Narrative Resulting Agency Comment Spec In Lab Dillon Koch MD CHEMISTRY ORDERABLES [facility] [place] [address] * (ABNORMAL) Basic Metabolic Panel (non-fasting) (10/11/2017 11:46 AM EDT) Glucose 123 65 - 199 mg/dL [facility] Comment:Diabetes: >=200 mg/d L plus symptoms Blood Urea Nitrogen 20 10 - 20 mg/dL [facility] Creatinine 1.10 0.80 - 1.50 mg/dL [facility] Sodium 144 135 - 145 mmol/L [facility] Potassium 4.1 3.5 - 5.0 mmol/L [facility] Comment: Please note: ??Patients with WBC >100,000 may have falsely elevated Potassium levels. ??For accurate Potassium quantification in these patients send serum separator tube (gold top) for subsequent determinations. ??Contact the Clinical Chemistry Laboratory if there are any questions. Chloride 104 98 - 107 mmol/L [facility] Carbon Dioxide 22 22 - 31 mmol/L [facility] Anion Gap 18(H) 5 - 15 mmol/L [facility] Calcium 9.7 8.5 - 10.5 mg/dL [facility] Est Glomerular Filtration Rate >60 >=60 [facility] Comment: The reported eGFR should be multiplied by 1.2 for patients. The MDRD is not an appropriate measure of renal function for patients with body mass extremes or in patients with acute kidney failure. [email or web address] Blood specimen (specimen) 10/11/2017 11:46 AM EDT 10/11/2017 11:54 AM EDT Narrative Resulting Agency Comment Spec In Lab Dillon Koch MD CHEMISTRY ORDERABLES [facility] [place] [address] * (ABNORMAL) Basic Metabolic Panel (non-fasting) (10/11/2017 6:05 AM EDT) Glucose 84 65 - 199 mg/dL [facility] Comment:Diabetes: >=200 mg/d L plus symptoms Blood Urea Nitrogen 21(H) 10 - 20 mg/dL [facility] Creatinine 1.09 0.80 - 1.50 mg/dL [facility] Sodium 151(H) 135 - 145 mmol/L [facility] Potassium 3.8 3.5 - 5.0 mmol/L [facility] Comment: Please note: ??Patients with WBC >100,000 may have falsely elevated Potassium levels. ??For accurate Potassium quantification in these patients send serum separator tube (gold top) for subsequent determinations. ??Contact the Clinical Chemistry Laboratory if there are any questions. Chloride 109(H) 98 - 107 mmol/L [facility] Carbon Dioxide 24 22 - 31 mmol/L [facility] Anion Gap 18(H) 5 - 15 mmol/L [facility] Calcium 9.5 8.5 - 10.5 mg/dL [facility] Est Glomerular Filtration Rate >60 >=60 [facility] LABORATORY Comment: The reported eGFR should be multiplied by 1.2 for patients. The MDRD is not an appropriate measure of renal function for patients with body mass extremes or in patients with acute kidney failure. http://[email or web address] [email or web address] Blood specimen (specimen) 10/11/2017 6:05 AM EDT 10/11/2017 6:38 AM EDT Narrative Resulting Agency Comment Spec In Lab Dillon Koch MD CHEMISTRY ORDERABLES Performing Organization Address City/State/[facility] Co de Phone Number [facility] [place] [phone] * (ABNORMAL) Basic Metabolic Panel (non-fasting) (10/10/2017 8:05 PM EDT) Glucose 107 65 - 199 mg/dL [facility] Comment:Diabetes: >=200 mg/d L plus symptoms Blood Urea Nitrogen 24(H) 10 - 20 mg/dL [facility] Creatinine 1.35 0.80 - 1.50 mg/dL [facility] Sodium 153(H) 135 - 145 mmol/L [facility] Potassium 3.9 3.5 - 5.0 mmol/L [facility] Comment: Please note: ??Patients with WBC >100,000 may have falsely elevated Potassium levels. ??For accurate Potassium quantification in these patients send serum separator tube (gold top) for subsequent determinations. ??Contact the Clinical Chemistry Laboratory if there are any questions. Chloride 112(H) 98 - 107 mmol/L [facility] Carbon Dioxide 23 22 - 31 mmol/L [facility] Anion Gap 18(H) 5 - 15 mmol/L [facility] Calcium 9.5 8.5 - 10.5 mg/dL [facility] Est Glomerular Filtration Rate >60 >=60 [facility] Comment: The reported eGFR should be multiplied by 1.2 for patients. The MDRD is not an appropriate measure of renal function for patients with body mass extremes or in patients with acute kidney failure. http://[email or web address] [email or web address] Blood specimen (specimen) 10/10/2017 8:05 PM EDT 10/10/2017 8:11 PM EDT Narrative Resulting Agency Comment Spec In Lab Dillon Kohc MD CHEMISTRY ORDERABLES [facility] [place] [address] * (ABNORMAL) Basic Metabolic Panel (non-fasting) (10/10/2017 11:24 AM EDT) Glucose 96 65 - 199 mg/dL [facility] Comment:Diabetes: >=200 mg/d L plus symptoms Blood Urea Nitrogen 20 10 - 20 mg/dL [facility] Creatinine 1.01 0.80 - 1.50 mg/dL [facility] Sodium 150(H) 135 - 145 mmol/L [facility] Potassium 3.7 3.5 - 5.0 mmol/L [facility] Comment: Please note: ??Patients with WBC >100,000 may have falsely elevated Potassium levels. ??For accurate Potassium quantification in these patients send serum separator tube (gold top) for subsequent determinations. ??Contact the Clinical Chemistry Laboratory if there are any questions. Chloride 111(H) 98 - 107 mmol/L [facility] Carbon Dioxide 23 22 - 31 mmol/L [facility] Anion Gap 16(H) 5 - 15 mmol/L [facility] Calcium 9.8 8.5 - 10.5 mg/dL [facility] Est Glomerular Filtration Rate >60 >=60 [facility] Comment: The reported eGFR should be multiplied by 1.2 for patients. The MDRD is not an appropriate measure of renal function for patients with body mass extremes or in patients with acute kidney failure. http://[email or web address] [email or web address] Blood specimen (specimen) 10/10/2017 11:24 AM EDT 10/10/2017 11:45 AM EDT Narrative Resulting Agency Comment Spec In Lab Dillon Koch MD CHEMISTRY ORDERABLES [facility] [place] [address] * (ABNORMAL) Basic Metabolic Panel (non-fasting) (10/10/2017 3:14 AM EDT) Glucose 98 65 - 199 mg/dL [facility] Comment:Diabetes: >=200 mg/d L plus symptoms Blood Urea Nitrogen 20 10 - 20 mg/dL [facility] Creatinine 0.91 0.80 - 1.50 mg/dL [facility] Sodium 154(H) 135 - 145 mmol/L [facility] Comment:result rechecked-jt Potassium 4.2 3.5 - 5.0 mmol/L [facility] Comment: Please note: ??Patients with WBC >100,000 may have falsely elevated Potassium levels. ??For accurate Potassium quantification in these patients send serum separator tube (gold top) for subsequent determinations. ??Contact the Clinical Chemistry Laboratory if there are any questions. Chloride 114(H) 98 - 107 mmol/L [facility] Comment:result rechecked-jt Carbon Dioxide 23 22 - 31 mmol/L [facility] Anion Gap 17(H) 5 - 15 mmol/L [facility] Calcium 9.5 8.5 - 10.5 mg/dL [facility] Est Glomerular Filtration Rate >60 >=60 [facility] Comment: The reported eGFR should be multiplied by 1.2 for patients. The MDRD is not an appropriate measure of renal function for patients with body mass extremes or in patients with acute kidney failure. [email or web address]://[email or web address] [email or web address] Blood specimen (specimen) 10/10/2017 3:14 AM EDT 10/10/2017 3:23 AM EDT Narrative Resulting Agency Comment Spec In Lab Jevon Rosales MD CHEMISTRY ORDERABLES [facility] [place] [address] * XR Pelvis (Generic) (10/09/2017 4:52 PM [...] EDT) Glucose 91 65 - 199 mg/dL [facility] Comment:Diabetes: >=200 mg/d L plus symptoms Blood Urea Nitrogen 13 10 - 20 mg/dL [facility] Creatinine 0.82 0.80 - 1.50 mg/dL [facility] Sodium 135 135 - 145 mmol/L [facility] Potassium 3.6 3.5 - 5.0 mmol/L [facility] Comment: Please note: ??Patients with WBC >100,000 may have falsely elevated Potassium levels. ??For accurate Potassium quantification in these patients send serum separator tube (gold top) for subsequent determinations. ??Contact the Clinical Chemistry Laboratory if there are any questions. Chloride 97(L) 98 - 107 mmol/L [facility] Carbon Dioxide 22 22 - 31 mmol/L [facility] Anion Gap 16(H) 5 - 15 mmol/L [facility] Calcium 9.0 8.5 - 10.5 mg/dL [facility] Est Glomerular Filtration Rate >60 >=60 [facility] Comment: The reported eGFR should be multiplied by 1.2 for patients. The MDRD is not an appropriate measure of renal function for patients with body mass extremes or in patients with acute kidney failure. [email or web address] [email or web address] Blood specimen (specimen) 10/08/2017 4:15 AM EDT 10/08/2017 4:46 AM EDT Narrative Resulting Agency Comment Spec In Lab Jevon Rosales MD CHEMISTRY ORDERABLES [facility] [place] [address] * (ABNORMAL) Basic Metabolic Panel (non-fasting) (10/07/2017 4:15 AM EDT) Glucose 95 65 - 199 mg/dL [facility] Comment:Diabetes: >=200 mg/d L plus symptoms Blood Urea Nitrogen 12 10 - 20 mg/dL [facility] Creatinine 0.80 0.80 - 1.50 mg/dL [facility] Sodium 137 135 - 145 mmol/L [facility] Potassium 3.9 3.5 - 5.0 mmol/L [facility] Comment: Please note: ??Patients with WBC >100,000 may have falsely elevated Potassium levels. ??For accurate Potassium quantification in these patients send serum separator tube (gold top) for subsequent determinations. ??Contact the Clinical Chemistry Laboratory if there are any questions. Chloride 99 98 - 107 mmol/L [facility] Carbon Dioxide 22 22 - 31 mmol/L [facility] Anion Gap 16(H) 5 - 15 mmol/L [facility] Calcium 9.0 8.5 - 10.5 mg/dL [facility] Est Glomerular Filtration Rate >60 >=60 [facility] Comment: The reported eGFR should be multiplied by 1.2 for patients. The MDRD is not an appropriate measure of renal function for patients with body mass extremes or in patients with acute kidney failure. [email or web address]/DHnkdep [email or web address] Blood specimen (specimen) 10/07/2017 4:15 AM EDT 10/07/2017 4:24 AM EDT Narrative Resulting Agency Comment Spec In Lab Jevon Rosales MD CHEMISTRY ORDERABLES [facility] [place] [address] * Lavender Tube HOLD (10/06/2017 4:05 AM EDT) Lavender Hold Sample in lab. [facility] Blood specimen (specimen) Venous Draw / Unknown 10/06/2017 4:05 AM EDT 10/06/2017 4:31 AM EDT Reba Linton MD HEMATOLOGY ORDER LYNDSEY [facility] [place] [address] * Basic Metabolic Panel (non-fasting) (10/06/2017 4:05 AM EDT) Glucose 103 65 - 199 mg/dL [facility] Comment:Diabetes: >=200 mg/d L plus symptoms Blood Urea Nitrogen 18 10 - 20 mg/dL [facility] Creatinine 0.88 0.80 - 1.50 mg/dL [facility] Sodium 145 135 - 145 mmol/L [facility] Potassium 3.7 3.5 - 5.0 mmol/L [facility] Comment: Please note: ??Patients with WBC >100,000 may have falsely elevated Potassium levels. ??For accurate Potassium quantification in these patients send serum separator tube (gold top) for subsequent determinations. ??Contact the Clinical Chemistry Laboratory if there are any questions. Chloride 104 98 - 107 mmol/L [facility] Carbon Dioxide 27 22 - 31 mmol/L [facility] Anion Gap 14 5 - 15 mmol/L [facility] Calcium 9.0 8.5 - 10.5 mg/dL [facility] Est Glomerular Filtration Rate >60 >=60 [facility] Comment: The reported eGFR should be multiplied by 1.2 for patients. The MDRD is not an appropriate measure of renal function for patients with body mass extremes or in patients with acute kidney failure. [email or web address]/DHnkdep [email or web address] Blood specimen (specimen) 10/06/2017 4:05 AM EDT 10/06/2017 4:31 AM EDT Narrative Resulting Agency Comment Spec In Lab Reba Linton MD CHEMISTRY ORDERA BLES Performing Organization Address City/[facility]/ZIP Co de Phone Number [facility] [place] [address] * (ABNORMAL) Basic Metabolic Panel (non-fasting) (10/05/2017 2:35 PM EDT) Glucose 86 65 - 199 mg/dL [facility] Comment:Diabetes: >=200 mg/d L plus symptoms Blood Urea Nitrogen 18 10 - 20 mg/dL [facility] Creatinine 1.03 0.80 - 1.50 mg/dL [facility] Sodium 148(H) 135 - 145 mmol/L [facility] Potassium 4.0 3.5 - 5.0 mmol/L [facility] Comment: Please note: ??Patients with WBC >100,000 may have falsely elevated Potassium levels. ??For accurate Potassium quantification in these patients send serum separator tube (gold top) for subsequent determinations. ??Contact the Clinical Chemistry Laboratory if there are any questions. Chloride 105 98 - 107 mmol/L [facility] Carbon Dioxide 28 22 - 31 mmol/L [facility] Anion Gap 15 5 - 15 mmol/L [facility] Calcium 9.3 8.5 - 10.5 mg/dL [facility] Est Glomerular Filtration Rate >60 >=60 [facility] Comment: The reported eGFR should be multiplied by 1.2 for patients. The MDRD is not an appropriate measure of renal function for patients with body mass extremes or in patients with acute kidney failure. [email or web address] [email or web address] Blood specimen (specimen) 10/05/2017 2:35 PM EDT 10/05/2017 2:46 PM EDT Narrative Resulting Agency Comment Spec In Lab Reba Linton MD CHEMISTRY ORDERA BLES Performing Organization Address City/[facility]/[place] [address] * Differential, Automated (10/05/2017 5:55 AM EDT) Neutrophil % 42.4 % [facility] Neutrophil Absolute 2.71 1.70 - 6.10 x10(3)/[facility] Lymph % 38.2 % [facility] [place] Lymphocytes Abs 2.4 0.9 - 3.2 x10(3)/[facility] Monocyte % 12.5 % [facility] Monocyte Abs 0.8 0.3 - 0.9 x10(3)/[facility] Eos % 5.5 % [facility] [place] Eosinophils Abs 0.4 0.0 - 0.4 x10(3)/[facility] Basophil % 0.8 % [facility] Baso Absolute 0.0 0.0 - 0.1 x10(3)/[facility] [place] Immature Gran % 0.60 % [facility] Comment: Immature granulocytes(IG's)percentage and absolute count will include metamyelocytes, myelocytes, and promyelocytes. Blood smears from CBCs yielding IG's will be scanned manually for concordance. If this scan disagrees with the automated IG or if promyelocytes are noted, a manual differential will be performed. Immature Gran Absolute 0.04 0.00 - 0.04 x10(3)/[facility] Blood specimen (specimen) 10/05/2017 5:55 AM EDT 10/05/2017 6:19 AM EDT Narrative Resulting Agency Comment Spec In Lab Reba Linton MD HEMATOLOG[place] [address] * (ABNORMAL) Hemogram (10/05/2017 5:55 AM EDT) Pathologist [facility] White Blood Cell 6.4 4.0 - 9.5 x10(3)/mc L [facility] Red Blood Cell 4.47(L) 4.58 - 5.54 x10(6)/mc L [facility] Hemoglobin 11.1(L) 13.7 - 16.5 gm/dL [facility] Hematocrit 38.6(L) 40.5 - 48.5 % [facility] Mean Cell Volume 86.4 82.9 - 93.1 fL [facility] Mean Cell Hemoglobin 24.8(L) 27.5 - 32.1 pg [facility] Mean Cell Hemoglobin Concentration 28.8(L) 32.0 - 35.7 gm/dL [facility] Platelet 281 145 - 357 x10(3)/[facility] RDW Standard Deviation 49.7(H) 36.0 - 45.0 [facility] RDW coefficient of variation 15.7(H) 11.4 - 13.8 % [facility] Mean Platelet Volume 9.4 7.6 - 12.9 [facility] NRBC% auto 0.0 % [facility] NRBC Absolute 0.000 0.000 - 0.000 x10(3)/[facility] Blood specimen (specimen) 10/05/2017 5:55 AM EDT 10/05/2017 6:19 AM EDT Narrative Resulting Agency Comment Spec In Lab Reba Linton MD HEMATOLOGY ORDER LYNDSEY [facility] [place] [address] * (ABNORMAL) Basic Metabolic Panel (non-fasting) (10/05/2017 3:51 AM EDT) Glucose 105 65 - 199 mg/dL [facility] Comment:Diabetes: >=200 mg/d L plus symptoms Blood Urea Nitrogen 19 10 - 20 mg/dL [facility] Creatinine 1.07 0.80 - 1.50 mg/dL [facility] Sodium 148(H) 135 - 145 mmol/L [facility] Potassium 3.9 3.5 - 5.0 mmol/L [facility] Comment: Please note: ??Patients with WBC >100,000 may have falsely elevated Potassium levels. ??For accurate Potassium quantification in these patients send serum separator tube (gold top) for subsequent determinations. ??Contact the Clinical Chemistry Laboratory if there are any questions. Chloride 107 98 - 107 mmol/L [facility] Carbon Dioxide 27 22 - 31 mmol/L [facility] Anion Gap 14 5 - 15 mmol/L [facility] Calcium 9.4 8.5 - 10.5 mg/dL [facility] Est Glomerular Filtration Rate >60 >=60 [facility] Comment: The reported eGFR should be multiplied by 1.2 for patients. The MDRD is not an appropriate measure of renal function for patients with body mass extremes or in patients with acute kidney failure. [email or web address] [email or web address] Blood specimen (specimen) 10/05/2017 3:51 AM EDT 10/05/2017 4:30 AM EDT Narrative Resulting Agency Comment Spec In Lab Reba Linton MD CHEMISTRY ORDERA [facility] [place] [address] * (ABNORMAL) Basic Metabolic Panel (non-fasting) (10/04/2017 7:09 PM EDT) Glucose 120 65 - 199 mg/dL [facility] Comment:Diabetes: >=200 mg/d L plus symptoms Blood Urea Nitrogen 19 10 - 20 mg/dL [facility] Creatinine 1.16 0.80 - 1.50 mg/dL [facility] Sodium 147(H) 135 - 145 mmol/L [facility] Potassium 3.7 3.5 - 5.0 mmol/L [facility] Comment: Please note: ??Patients with WBC >100,000 may have falsely elevated Potassium levels. ??For accurate Potassium quantification in these patients send serum separator tube (gold top) for subsequent determinations. ??Contact the Clinical Chemistry Laboratory if there are any questions. Chloride 104 98 - 107 mmol/L [facility] Carbon Dioxide 29 22 - 31 mmol/L [facility] Anion Gap 14 5 - 15 mmol/L [facility] Calcium 9.4 8.5 - 10.5 mg/dL [facility] Est Glomerular Filtration Rate >60 >=60 [facility] Comment: The reported eGFR should be multiplied by 1.2 for patients. The MDRD is not an appropriate measure of renal function for patients with body mass extremes or in patients with acute kidney failure. [email or web address] [email or web address]/[email or web address] Blood specimen (specimen) 10/04/2017 7:09 PM EDT 10/04/2017 7:13 PM EDT Narrative Resulting Agency Comment Spec In Lab Kemi Camp APRN CHEMISTRY ORDERAB LES [facility] [place] [address] * (ABNORMAL) Basic Metabolic Panel (non-fasting) (10/04/2017 12:48 PM EDT) Glucose 92 65 - 199 mg/dL [facility] Comment:Diabetes: >=200 mg/d L plus symptoms Blood Urea Nitrogen 20 10 - 20 mg/dL [facility] Creatinine 0.97 0.80 - 1.50 mg/dL [facility] Sodium 147(H) 135 - 145 mmol/L [facility] Potassium 3.8 3.5 - 5.0 mmol/L [facility] Comment: Please note: ??Patients with WBC >100,000 may have falsely elevated Potassium levels. ??For accurate Potassium quantification in these patients send serum separator tube (gold top) for subsequent determinations. ??Contact the Clinical Chemistry Laboratory if there are any questions. Chloride 103 98 - 107 mmol/L [facility] Carbon Dioxide 29 22 - 31 mmol/L [facility] Anion Gap 15 5 - 15 mmol/L [facility] Calcium 9.5 8.5 - 10.5 mg/dL [facility] Est Glomerular Filtration Rate >60 >=60 [facility] Comment: The reported eGFR should be multiplied by 1.2 for patients. The MDRD is not an appropriate measure of renal function for patients with body mass extremes or in patients with acute kidney failure. http://[email or web address] [email or web address]://[email or web address]/[email or web address] Blood specimen (specimen) 10/04/2017 12:48 PM EDT 10/04/2017 1:00 PM EDT Narrative Resulting Agency Comment Spec In Lab Kemi Camp APRN CHEMISTRY ORDERAB LES [facility] [place] [address] * (ABNORMAL) Basic Metabolic Panel (non-fasting) (10/04/2017 5:01 AM EDT) Glucose 94 65 - 199 mg/dL [facility] Comment:Diabetes: >=200 mg/d L plus symptoms Blood Urea Nitrogen 20 10 - 20 mg/dL [facility] Creatinine 1.11 0.80 - 1.50 mg/dL [facility] Sodium 146(H) 135 - 145 mmol/L [facility] Potassium 3.8 3.5 - 5.0 mmol/L [facility] Comment: Please note: ??Patients with WBC >100,000 may have falsely elevated Potassium levels. ??For accurate Potassium quantification in these patients send serum separator tube (gold top) for subsequent determinations. ??Contact the Clinical Chemistry Laboratory if there are any questions. Chloride 103 98 - 107 mmol/L [facility] Carbon Dioxide 26 22 - 31 mmol/L [facility] Anion Gap 17(H) 5 - 15 mmol/L [facility] Calcium 9.5 8.5 - 10.5 mg/dL [facility] Est Glomerular Filtration Rate >60 >=60 [facility] Comment: The reported eGFR should be multiplied by 1.2 for patients. The MDRD is not an appropriate measure of renal function for patients with body mass extremes or in patients with acute kidney failure. http://[email or web address] [email or web address]://[email or web address]/[email or web address] Blood specimen (specimen) 10/04/2017 5:01 AM EDT 10/04/2017 5:44 AM EDT Narrative Resulting Agency Comment Spec In Lab Kemi Camp APRN CHEMISTRY ORDERAB LES [facility] [place] [address] * (ABNORMAL) Basic Metabolic Panel (non-fasting) (10/03/2017 7:48 PM EDT) Glucose 86 65 - 199 mg/dL [facility] Comment:Diabetes: >=200 mg/d L plus symptoms Blood Urea Nitrogen 21(H) 10 - 20 mg/dL [facility] Creatinine 1.03 0.80 - 1.50 mg/dL [facility] Sodium 148(H) 135 - 145 mmol/L [facility] Potassium 4.3 3.5 - 5.0 mmol/L [facility] Comment: Please note: ??Patients with WBC >100,000 may have falsely elevated Potassium levels. ??For accurate Potassium quantification in these patients send serum separator tube (gold top) for subsequent determinations. ??Contact the Clinical Chemistry Laboratory if there are any questions. Chloride 104 98 - 107 mmol/L [facility] Carbon Dioxide 29 22 - 31 mmol/L [facility] Anion Gap 15 5 - 15 mmol/L [facility] Calcium 9.6 8.5 - 10.5 mg/dL [facility] Est Glomerular Filtration Rate >60 >=60 [facility] Comment: The reported eGFR should be multiplied by 1.2 for patients. The MDRD is not an appropriate measure of renal function for patients with body mass extremes or in patients with acute kidney failure. [email or web address] Blood specimen (specimen) 10/03/2017 7:48 PM EDT 10/03/2017 7:52 PM EDT Narrative Resulting Agency Comment Spec In Lab Kemi Camp APRN CHEMISTRY ORDERAB LES [facility] [place] [address] * (ABNORMAL) Basic Metabolic Panel (non-fasting) (10/03/2017 11:36 AM EDT) Glucose 108 65 - 199 mg/dL [facility] Comment:Diabetes: >=200 mg/d L plus symptoms Blood Urea Nitrogen 15 10 - 20 mg/dL [facility] Creatinine 1.04 0.80 - 1.50 mg/dL [facility] Sodium 146(H) 135 - 145 mmol/L [facility] Potassium 3.7 3.5 - 5.0 mmol/L [facility] Comment: Please note: ??Patients with WBC >100,000 may have falsely elevated Potassium levels. ??For accurate Potassium quantification in these patients send serum separator tube (gold top) for subsequent determinations. ??Contact the Clinical Chemistry Laboratory if there are any questions. Chloride 102 98 - 107 mmol/L [facility] Carbon Dioxide 28 22 - 31 mmol/L [facility] Anion Gap 16(H) 5 - 15 mmol/L [facility] Calcium 9.9 8.5 - 10.5 mg/dL [facility] Est Glomerular Filtration Rate >60 >=60 [facility] Comment: The reported eGFR should be multiplied by 1.2 for patients. The MDRD is not an appropriate measure of renal function for patients with body mass extremes or in patients with acute kidney failure. [email or web address] Blood specimen (specimen) 10/03/2017 11:36 AM EDT 10/03/2017 12:02 PM EDT Narrative Resulting Agency Comment Spec In Lab Kemi Camp APRN CHEMISTRY ORDERAB LES [facility] [place] [address] * (ABNORMAL) Basic Metabolic Panel (non-fasting) (10/03/2017 4:15 AM EDT) Glucose 96 65 - 199 mg/dL [facility] Comment:Diabetes: >=200 mg/d L plus symptoms Blood Urea Nitrogen 15 10 - 20 mg/dL [facility] Creatinine 0.86 0.80 - 1.50 mg/dL [facility] Sodium 146(H) 135 - 145 mmol/L [facility] Potassium 3.9 3.5 - 5.0 mmol/L [facility] Comment: Please note: ??Patients with WBC >100,000 may have falsely elevated Potassium levels. ??For accurate Potassium quantification in these patients send serum separator tube (gold top) for subsequent determinations. ??Contact the Clinical Chemistry Laboratory if there are any questions. Chloride 106 98 - 107 mmol/L [facility] Carbon Dioxide 26 22 - 31 mmol/L [facility] Anion Gap 14 5 - 15 mmol/L [facility] Calcium 9.5 8.5 - 10.5 mg/dL [facility] Est Glomerular Filtration Rate >60 >=60 [facility] Comment: The reported eGFR should be multiplied by 1.2 for patients. The MDRD is not an appropriate measure of renal function for patients with body mass extremes or in patients with acute kidney failure. [email or web address] Blood specimen (specimen) 10/03/2017 4:15 AM EDT 10/03/2017 4:25 AM EDT Narrative Resulting Agency Comment Spec In Lab Kemi Camp APRN CHEMISTRY ORDERAB LES [facility] [place] [address] * (ABNORMAL) Basic Metabolic Panel (non-fasting) (10/02/2017 7:12 PM EDT) Glucose 114 65 - 199 mg/dL [facility] Comment:Diabetes: >=200 mg/d L plus symptoms Blood Urea Nitrogen 15 10 - 20 mg/dL [facility] Creatinine 0.95 0.80 - 1.50 mg/dL [facility] Sodium 146(H) 135 - 145 mmol/L [facility] Potassium 4.0 3.5 - 5.0 mmol/L [facility] Comment: Please note: ??Patients with WBC >100,000 may have falsely elevated Potassium levels. ??For accurate Potassium quantification in these patients send serum separator tube (gold top) for subsequent determinations. ??Contact the Clinical Chemistry Laboratory if there are any questions. Chloride 105 98 - 107 mmol/L [facility] Carbon Dioxide 24 22 - 31 mmol/L [facility] Anion Gap 17(H) 5 - 15 mmol/L [facility] Calcium 9.3 8.5 - 10.5 mg/dL [facility] Est Glomerular Filtration Rate >60 >=60 [facility] Comment: The reported eGFR should be multiplied by 1.2 for patients. The MDRD is not an appropriate measure of renal function for patients with body mass extremes or in patients with acute kidney failure. [email or web address] Blood specimen (specimen) 10/02/2017 7:12 PM EDT 10/02/2017 7:24 PM EDT Narrative Resulting Agency Comment Spec In Lab Kemi Camp MAX CHEMISTRY ORDERAB LES [facility] [place] [address] * (ABNORMAL) Basic Metabolic Panel (non-fasting) (10/02/2017 12:14 PM EDT) Glucose 84 65 - 199 mg/dL [facility] Comment:Diabetes: >=200 mg/d L plus symptoms Blood Urea Nitrogen 13 10 - 20 mg/dL [facility] Creatinine 0.84 0.80 - 1.50 mg/dL [facility] Sodium 146(H) 135 - 145 mmol/L [facility] Potassium 4.3 3.5 - 5.0 mmol/L [facility] Comment: Please note: ??Patients with WBC >100,000 may have falsely elevated Potassium levels. ??For accurate Potassium quantification in these patients send serum separator tube (gold top) for subsequent determinations. ??Contact the Clinical Chemistry Laboratory if there are any questions. Chloride 105 98 - 107 mmol/L [facility] Carbon Dioxide 25 22 - 31 mmol/L [facility] Anion Gap 16(H) 5 - 15 mmol/L [facility] Calcium 9.5 8.5 - 10.5 mg/dL [facility] Est Glomerular Filtration Rate >60 >=60 [facility] Comment: The reported eGFR should be multiplied by 1.2 for patients. The MDRD is not an appropriate measure of renal function for patients with body mass extremes or in patients with acute kidney failure. [email or web address] Blood specimen (specimen) 10/02/2017 12:14 PM EDT 10/02/2017 12:24 PM EDT Narrative Resulting Agency Comment Spec In Lab Kemi Camp APRN CHEMISTRY ORDERAB LES [facility] [place] [address] * Basic Metabolic Panel (non-fasting) (10/02/2017 5:45 AM EDT) Glucose 83 65 - 199 mg/dL [facility] Comment:Diabetes: >=200 mg/d L plus symptoms Blood Urea Nitrogen 15 10 - 20 mg/dL [facility] Creatinine 0.85 0.80 - 1.50 mg/dL [facility] Sodium 143 135 - 145 mmol/L [facility] Potassium 4.0 3.5 - 5.0 mmol/L [facility] Comment: Please note: ??Patients with WBC >100,000 may have falsely elevated Potassium levels. ??For accurate Potassium quantification in these patients send serum separator tube (gold top) for subsequent determinations. ??Contact the Clinical Chemistry Laboratory if there are any questions. Chloride 103 98 - 107 mmol/L [facility] Carbon Dioxide 26 22 - 31 mmol/L [facility] Anion Gap 14 5 - 15 mmol/L [facility] Calcium 9.4 8.5 - 10.5 mg/dL [facility] Est Glomerular Filtration Rate >60 >=60 [facility] Comment: The reported eGFR should be multiplied by 1.2 for patients. The MDRD is not an appropriate measure of renal function for patients with body mass extremes or in patients with acute kidney failure. [email or web address] [email or web address] Blood specimen (specimen) 10/02/2017 5:45 AM EDT 10/02/2017 6:07 AM EDT Narrative Resulting Agency Comment Spec In Lab Kemi Camp APRN CHEMISTRY ORDERAB LES Performing Organization Address [facility]/ZIP Co de Phone Number [facility] [place] [address] * Basic Metabolic Panel (non-fasting) (10/01/2017 8:22 PM EDT) Glucose 105 65 - 199 mg/dL [facility] Comment:Diabetes: >=200 mg/d L plus symptoms Blood Urea Nitrogen 14 10 - 20 mg/dL [facility] Creatinine 0.95 0.80 - 1.50 mg/dL [facility] Sodium 139 135 - 145 mmol/L [facility] Potassium 4.3 3.5 - 5.0 mmol/L [facility] Comment: Please note: ??Patients with WBC >100,000 may have falsely elevated Potassium levels. ??For accurate Potassium quantification in these patients send serum separator tube (gold top) for subsequent determinations. ??Contact the Clinical Chemistry Laboratory if there are any questions. Chloride 100 98 - 107 mmol/L [facility] Carbon Dioxide 26 22 - 31 mmol/L [facility] Anion Gap 13 5 - 15 mmol/L [facility] Calcium 9.1 8.5 - 10.5 mg/dL [facility] Est Glomerular Filtration Rate >60 >=60 [facility] Comment: The reported eGFR should be multiplied by 1.2 for patients. The MDRD is not an appropriate measure of renal function for patients with body mass extremes or in patients with acute kidney failure. [email or web address] [email or web address] Blood specimen (specimen) 10/01/2017 8:22 PM EDT 10/01/2017 8:35 PM EDT Narrative Resulting Agency Comment Spec In Lab Kemi Camp APRN CHEMISTRY ORDERAB LES Performing Organization Address [facility]/ZIP Co de Phone Number [facility] [place] [address] * (ABNORMAL) Basic Metabolic Panel (non-fasting) (10/01/2017 12:08 PM EDT) Glucose 75 65 - 199 mg/dL [facility] Comment:Diabetes: >=200 mg/d L plus symptoms Blood Urea Nitrogen 12 10 - 20 mg/dL [facility] Creatinine 0.78(L) 0.80 - 1.50 mg/dL [facility] Sodium 137 135 - 145 mmol/L [facility] Potassium 4.3 3.5 - 5.0 mmol/L [facility] Comment: Please note: ??Patients with WBC >100,000 may have falsely elevated Potassium levels. ??For accurate Potassium quantification in these patients send serum separator tube (gold top) for subsequent determinations. ??Contact the Clinical Chemistry Laboratory if there are any questions. Chloride 97(L) 98 - 107 mmol/L [facility] Carbon Dioxide 24 22 - 31 mmol/L [facility] Anion Gap 16(H) 5 - 15 mmol/L [facility] Calcium 9.3 8.5 - 10.5 mg/dL [facility] Est Glomerular Filtration Rate >60 >=60 [facility] Comment: The reported eGFR should be multiplied by 1.2 for patients. The MDRD is not an appropriate measure of renal function for patients with body mass extremes or in patients with acute kidney failure. [email or web address] [email or web address] Blood specimen (specimen) 10/01/2017 12:08 PM EDT 10/01/2017 12:14 PM EDT Narrative Resulting Agency Comment Spec In Lab Kemi Camp APRN CHEMISTRY ORDERAB LES [facility] [place] [address] * (ABNORMAL) Basic Metabolic Panel (non-fasting) (10/01/2017 3:41 AM EDT) Glucose 99 65 - 199 mg/dL [facility] Comment:Diabetes: >=200 mg/d L plus symptoms Blood Urea Nitrogen 13 10 - 20 mg/dL [facility] Creatinine 0.70(L) 0.80 - 1.50 mg/dL [facility] Sodium 130(L) 135 - 145 mmol/L [facility] Potassium 3.8 3.5 - 5.0 mmol/L [facility] Comment: Please note: ??Patients with WBC >100,000 may have falsely elevated Potassium levels. ??For accurate Potassium quantification in these patients send serum separator tube (gold top) for subsequent determinations. ??Contact the Clinical Chemistry Laboratory if there are any questions. Chloride 93(L) 98 - 107 mmol/L [facility] Carbon Dioxide 24 22 - 31 mmol/L [facility] Anion Gap 13 5 - 15 mmol/L [facility] Calcium 8.6 8.5 - 10.5 mg/dL [facility] Est Glomerular Filtration Rate >60 >=60 [facility] Comment: The reported eGFR should be multiplied by 1.2 for patients. The MDRD is not an appropriate measure of renal function for patients with body mass extremes or in patients with acute kidney failure. [email or web address] [email or web address] Blood specimen (specimen) 10/01/2017 3:41 AM EDT 10/01/2017 3:53 AM EDT Narrative Resulting Agency Comment Spec In Lab Kemi Camp APRN CHEMISTRY ORDERAB LES [facility] [place] [address] * (ABNORMAL) Basic Metabolic Panel (non-fasting) (09/30/2017 9:24 PM EDT) Glucose 106 65 - 199 mg/dL [facility] Comment:Diabetes: >=200 mg/d L plus symptoms Blood Urea Nitrogen 16 10 - 20 mg/dL [facility] Creatinine 0.80 0.80 - 1.50 mg/dL [facility] Sodium 131(L) 135 - 145 mmol/L [facility] Potassium 4.0 3.5 - 5.0 mmol/L [facility] Comment: Please note: ??Patients with WBC >100,000 may have falsely elevated Potassium levels. ??For accurate Potassium quantification in these patients send serum separator tube (gold top) for subsequent determinations. ??Contact the Clinical Chemistry Laboratory if there are any questions. Chloride 91(L) 98 - 107 mmol/L [facility] Carbon Dioxide 27 22 - 31 mmol/L [facility] Anion Gap 13 5 - 15 mmol/L [facility] Calcium 8.6 8.5 - 10.5 mg/dL [facility] Est Glomerular Filtration Rate >60 >=60 [facility] Comment: The reported eGFR should be multiplied by 1.2 for patients. The MDRD is not an appropriate measure of renal function for patients with body mass extremes or in patients with acute kidney failure. [email or web address] [email or web address] Blood specimen (specimen) 09/30/2017 9:24 PM EDT 09/30/2017 9:34 PM EDT Narrative Resulting Agency Comment Spec In Lab Kemi Camp APRN CHEMISTRY ORDERAB LES [facility] [place] [address] * (ABNORMAL) Basic Metabolic Panel (non-fasting) (09/30/2017 12:42 PM EDT) Glucose 74 65 - 199 mg/dL [facility] Comment:Diabetes: >=200 mg/d L plus symptoms Blood Urea Nitrogen 18 10 - 20 mg/dL [facility] Creatinine 0.82 0.80 - 1.50 mg/dL [facility] Sodium 133(L) 135 - 145 mmol/L [facility] Potassium 3.6 3.5 - 5.0 mmol/L [facility] Comment: Please note: ??Patients with WBC >100,000 may have falsely elevated Potassium levels. ??For accurate Potassium quantification in these patients send serum separator tube (gold top) for subsequent determinations. ??Contact the Clinical Chemistry Laboratory if there are any questions. Chloride 94(L) 98 - 107 mmol/L [facility] Carbon Dioxide 27 22 - 31 mmol/L [facility] Anion Gap 12 5 - 15 mmol/L [facility] Calcium 8.6 8.5 - 10.5 mg/dL [facility] Est Glomerular Filtration Rate >60 >=60 [facility] Comment: The reported eGFR should be multiplied by 1.2 for patients. The MDRD is not an appropriate measure of renal function for patients with body mass extremes or in patients with acute kidney failure. [email or web address] Blood specimen (specimen) 09/30/2017 12:42 PM EDT 09/30/2017 12:53 PM EDT Narrative Resulting Agency Comment Spec In Lab Reba Linton MD CHEMISTRY ORDERA BLES [facility] [place] [address] * (ABNORMAL) Basic Metabolic Panel (non-fasting) (09/30/2017 6:09 AM EDT) Glucose 85 65 - 199 mg/dL [facility] Comment:Diabetes: >=200 mg/d L plus symptoms Blood Urea Nitrogen 19 10 - 20 mg/dL [facility] Creatinine 0.78(L) 0.80 - 1.50 mg/dL [facility] Sodium 133(L) 135 - 145 mmol/L [facility] Potassium 3.9 3.5 - 5.0 mmol/L [facility] Comment: Please note: ??Patients with WBC >100,000 may have falsely elevated Potassium levels. ??For accurate Potassium quantification in these patients send serum separator tube (gold top) for subsequent determinations. ??Contact the Clinical Chemistry Laboratory if there are any questions. Chloride 94(L) 98 - 107 mmol/L [facility] Carbon Dioxide 27 22 - 31 mmol/L [facility] Anion Gap 12 5 - 15 mmol/L [facility] Calcium 8.8 8.5 - 10.5 mg/dL [facility] Est Glomerular Filtration Rate >60 >=60 [facility] Comment: The reported eGFR should be multiplied by 1.2 for patients. The MDRD is not an appropriate measure of renal function for patients with body mass extremes or in patients with acute kidney failure. [email or web address] [email or web address] Blood specimen (specimen) 09/30/2017 6:09 AM EDT 09/30/2017 6:13 AM EDT Narrative Resulting Agency Comment Spec In Lab Reba Linton MD CHEMISTRY ORDERA [facility] [place] [address] * (ABNORMAL) Basic Metabolic Panel (non-fasting) (09/29/2017 6:36 PM EDT) Glucose 94 65 - 199 mg/dL [facility] Comment:Diabetes: >=200 mg/d L plus symptoms Blood Urea Nitrogen 22(H) 10 - 20 mg/dL [facility] Creatinine 0.73(L) 0.80 - 1.50 mg/dL [facility] Sodium 136 135 - 145 mmol/L [facility] Potassium 3.9 3.5 - 5.0 mmol/L [facility] Comment: Please note: ??Patients with WBC >100,000 may have falsely elevated Potassium levels. ??For accurate Potassium quantification in these patients send serum separator tube (gold top) for subsequent determinations. ??Contact the Clinical Chemistry Laboratory if there are any questions. Chloride 96(L) 98 - 107 mmol/L [facility] Carbon Dioxide 26 22 - 31 mmol/L [facility] Anion Gap 14 5 - 15 mmol/L [facility] Calcium 8.6 8.5 - 10.5 mg/dL [facility] Est Glomerular Filtration Rate >60 >=60 [facility] Comment: The reported eGFR should be multiplied by 1.2 for patients. The MDRD is not an appropriate measure of renal function for patients with body mass extremes or in patients with acute kidney failure. [email or web address] [email or web address] Blood specimen (specimen) 09/29/2017 6:36 PM EDT 09/29/2017 6:41 PM EDT Narrative Resulting Agency Comment Spec In Lab Kemi Camp APRN CHEMISTRY ORDERAB LES [facility] [place] [address] * (ABNORMAL) Basic Metabolic Panel (non-fasting) (09/29/2017 10:51 AM EDT) Glucose 82 65 - 199 mg/dL [facility] Comment:Diabetes: >=200 mg/d L plus symptoms Blood Urea Nitrogen 22(H) 10 - 20 mg/dL [facility] Creatinine 0.82 0.80 - 1.50 mg/dL [facility] Sodium 140 135 - 145 mmol/L [facility] Potassium 3.7 3.5 - 5.0 mmol/L [facility] Comment: Please note: ??Patients with WBC >100,000 may have falsely elevated Potassium levels. ??For accurate Potassium quantification in these patients send serum separator tube (gold top) for subsequent determinations. ??Contact the Clinical Chemistry Laboratory if there are any questions. Chloride 99 98 - 107 mmol/L [facility] Carbon Dioxide 28 22 - 31 mmol/L [facility] Anion Gap 13 5 - 15 mmol/L [facility] Calcium 8.8 8.5 - 10.5 mg/dL [facility] Est Glomerular Filtration Rate >60 >=60 [facility] Comment: The reported eGFR should be multiplied by 1.2 for patients. The MDRD is not an appropriate measure of renal function for patients with body mass extremes or in patients with acute kidney failure. [email or web address] [email or web address] Blood specimen (specimen) 09/29/2017 10:51 AM EDT 09/29/2017 11:08 AM EDT Narrative Resulting Agency Comment Spec In Lab Kemi Camp APRN CHEMISTRY ORDERAB LES Performing Organization Address City/State/[facility] Co de Phone Number [facility] [place] [phone] * (ABNORMAL) Basic Metabolic Panel (non-fasting) (09/29/2017 2:17 AM EDT) Glucose 84 65 - 199 mg/dL [facility] Comment:Diabetes: >=200 mg/d L plus symptoms Blood Urea Nitrogen 23(H) 10 - 20 mg/dL [facility] Creatinine 0.98 0.80 - 1.50 mg/dL [facility] Sodium 140 135 - 145 mmol/L [facility] Potassium 3.5 3.5 - 5.0 mmol/L [facility] Comment: Please note: ??Patients with WBC >100,000 may have falsely elevated Potassium levels. ??For accurate Potassium quantification in these patients send serum separator tube (gold top) for subsequent determinations. ??Contact the Clinical Chemistry Laboratory if there are any questions. Chloride 99 98 - 107 mmol/L [facility] Carbon Dioxide 29 22 - 31 mmol/L [facility] Anion Gap 12 5 - 15 mmol/L [facility] Calcium 8.9 8.5 - 10.5 mg/dL [facility] Est Glomerular Filtration Rate >60 >=60 [facility] Comment: The reported eGFR should be multiplied by 1.2 for patients. The MDRD is not an appropriate measure of renal function for patients with body mass extremes or in patients with acute kidney failure. [email or web address] [email or web address] Blood specimen (specimen) 09/29/2017 2:17 AM EDT 09/29/2017 2:21 AM EDT Narrative Resulting Agency Comment Spec In Lab Kemi Camp APRN CHEMISTRY ORDERAB LES [facility] [place] [address] * (ABNORMAL) Basic Metabolic Panel (non-fasting) (09/28/2017 2:56 PM EDT) Glucose 92 65 - 199 mg/dL [facility] Comment:Diabetes: >=200 mg/d L plus symptoms Blood Urea Nitrogen 23(H) 10 - 20 mg/dL [facility] Creatinine 0.88 0.80 - 1.50 mg/dL [facility] Sodium 146(H) 135 - 145 mmol/L [facility] Potassium 4.0 3.5 - 5.0 mmol/L [facility] Comment: Please note: ??Patients with WBC >100,000 may have falsely elevated Potassium levels. ??For accurate Potassium quantification in these patients send serum separator tube (gold top) for subsequent determinations. ??Contact the Clinical Chemistry Laboratory if there are any questions. Chloride 103 98 - 107 mmol/L [facility] Carbon Dioxide 27 22 - 31 mmol/L [facility] Anion Gap 16(H) 5 - 15 mmol/L [facility] Calcium 9.3 8.5 - 10.5 mg/dL [facility] Est Glomerular Filtration Rate >60 >=60 [facility] Comment: The reported eGFR should be multiplied by 1.2 for patients. The MDRD is not an appropriate measure of renal function for patients with body mass extremes or in patients with acute kidney failure. [email or web address] [email or web address] Blood specimen (specimen) 09/28/2017 2:56 PM EDT 09/28/2017 3:08 PM EDT Narrative Resulting Agency Comment Spec In Lab Reba Linton MD CHEMISTRY ORDERA BLES [facility] [place] [address] * (ABNORMAL) Basic Metabolic Panel (non-fasting) (09/28/2017 12:13 PM EDT) Glucose 78 65 - 199 mg/dL [facility] Comment:Diabetes: >=200 mg/d L plus symptoms Blood Urea Nitrogen 22(H) 10 - 20 mg/dL [facility] Creatinine 0.86 0.80 - 1.50 mg/dL [facility] Sodium 148(H) 135 - 145 mmol/L [facility] Potassium 3.9 3.5 - 5.0 mmol/L [facility] Comment: Please note: ??Patients with WBC >100,000 may have falsely elevated Potassium levels. ??For accurate Potassium quantification in these patients send serum separator tube (gold top) for subsequent determinations. ??Contact the Clinical Chemistry Laboratory if there are any questions. Chloride 106 98 - 107 mmol/L [facility] Carbon Dioxide 27 22 - 31 mmol/L [facility] Anion Gap 15 5 - 15 mmol/L [facility] Calcium 9.3 8.5 - 10.5 mg/dL [facility] Est Glomerular Filtration Rate >60 >=60 [facility] Comment: The reported eGFR should be multiplied by 1.2 for patients. The MDRD is not an appropriate measure of renal function for patients with body mass extremes or in patients with acute kidney failure. [email or web address] [email or web address] Blood specimen (specimen) 09/28/2017 12:13 PM EDT 09/28/2017 12:18 PM EDT Narrative Resulting Agency Comment Spec In Lab Reba Linton MD CHEMISTRY ORDERA BLES [facility] [place] [address] * (ABNORMAL) Basic Metabolic Panel (non-fasting) (09/28/2017 6:57 AM EDT) Glucose 86 65 - 199 mg/dL [facility] Comment:Diabetes: >=200 mg/d L plus symptoms Blood Urea Nitrogen 21(H) 10 - 20 mg/dL [facility] Creatinine 0.89 0.80 - 1.50 mg/dL [facility] Sodium 148(H) 135 - 145 mmol/L [facility] Potassium 4.0 3.5 - 5.0 mmol/L [facility] Comment: Please note: ??Patients with WBC >100,000 may have falsely elevated Potassium levels. ??For accurate Potassium quantification in these patients send serum separator tube (gold top) for subsequent determinations. ??Contact the Clinical Chemistry Laboratory if there are any questions. Chloride 107 98 - 107 mmol/L [facility] Carbon Dioxide 26 22 - 31 mmol/L [facility] Anion Gap 15 5 - 15 mmol/L [facility] Calcium 9.5 8.5 - 10.5 mg/dL [facility] Est Glomerular Filtration Rate >60 >=60 [facility] Comment: The reported eGFR should be multiplied by 1.2 for patients. The MDRD is not an appropriate measure of renal function for patients with body mass extremes or in patients with acute kidney failure. [email or web address] [email or web address] Blood specimen (specimen) 09/28/2017 6:57 AM EDT 09/28/2017 7:02 AM EDT Narrative Resulting Agency Comment Spec In Lab Reba Linton MD CHEMISTRY ORDERA BLES [facility] [place] [address] * (ABNORMAL) Basic Metabolic Panel (non-fasting) (09/27/2017 9:43 AM EDT) Glucose 108 65 - 199 mg/dL [facility] Comment:Diabetes: >=200 mg/d L plus symptoms Blood Urea Nitrogen 17 10 - 20 mg/dL [facility] Creatinine 1.00 0.80 - 1.50 mg/dL [facility] Sodium 147(H) 135 - 145 mmol/L [facility] Comment:result rechecked-MM Potassium 3.5 3.5 - 5.0 mmol/L [facility] Comment: Please note: ??Patients with WBC >100,000 may have falsely elevated Potassium levels. ??For accurate Potassium quantification in these patients send serum separator tube (gold top) for subsequent determinations. ??Contact the Clinical Chemistry Laboratory if there are any questions. Chloride 106 98 - 107 mmol/L [facility] Carbon Dioxide 22 22 - 31 mmol/L [facility] Anion Gap 19(H) 5 - 15 mmol/L [facility] Calcium 9.4 8.5 - 10.5 mg/dL [facility] Est Glomerular Filtration Rate >60 >=60 [facility] Comment: The reported eGFR should be multiplied by 1.2 for patients. The MDRD is not an appropriate measure of renal function for patients with body mass extremes or in patients with acute kidney failure. [email or web address] [email or web address] Blood specimen (specimen) 09/27/2017 9:43 AM EDT 09/27/2017 9:50 AM EDT Narrative Resulting Agency Comment Spec In Lab Kya Enriquez MD CHEMISTRY ORDERABL ES [facility] [place] [address] * (ABNORMAL) Basic Metabolic Panel (non-fasting) (09/25/2017 12:22 PM EDT) Glucose 81 65 - 199 mg/dL [facility] Comment:Diabetes: >=200 mg/d L plus symptoms Blood Urea Nitrogen 16 10 - 20 mg/dL [facility] Creatinine 0.68(L) 0.80 - 1.50 mg/dL [facility] Sodium 137 135 - 145 mmol/L [facility] Potassium 4.0 3.5 - 5.0 mmol/L [facility] Comment: Please note: ??Patients with WBC >100,000 may have falsely elevated Potassium levels. ??For accurate Potassium quantification in these patients send serum separator tube (gold top) for subsequent determinations. ??Contact the Clinical Chemistry Laboratory if there are any questions. Chloride 98 98 - 107 mmol/L [facility] Carbon Dioxide 24 22 - 31 mmol/L [facility] Anion Gap 15 5 - 15 mmol/L [facility] Calcium 9.1 8.5 - 10.5 mg/dL [facility] Est Glomerular Filtration Rate >60 >=60 [facility] Comment: The reported eGFR should be multiplied by 1.2 for patients. The MDRD is not an appropriate measure of renal function for patients with body mass extremes or in patients with acute kidney failure. [email or web address] [email or web address] Blood specimen (specimen) 09/25/2017 12:22 PM EDT 09/25/2017 12:30 PM EDT Narrative Resulting Agency Comment Spec In Lab Kya Enriquez MD CHEMISTRY ORDERABL ES Performing Organization Address [facility]/[place] [address] * (ABNORMAL) Basic Metabolic Panel (non-fasting) (09/24/2017 11:40 AM EDT) Glucose 96 65 - 199 mg/dL [facility] Comment:Diabetes: >=200 mg/d L plus symptoms Blood Urea Nitrogen 13 10 - 20 mg/dL [facility] Creatinine 0.78(L) 0.80 - 1.50 mg/dL [facility] Sodium 137 135 - 145 mmol/L [facility] Potassium 4.0 3.5 - 5.0 mmol/L [facility] Comment: Please note: ??Patients with WBC >100,000 may have falsely elevated Potassium levels. ??For accurate Potassium quantification in these patients send serum separator tube (gold top) for subsequent determinations. ??Contact the Clinical Chemistry Laboratory if there are any questions. Chloride 100 98 - 107 mmol/L [facility] Carbon Dioxide 26 22 - 31 mmol/L [facility] Anion Gap 11 5 - 15 mmol/L [facility] Calcium 8.9 8.5 - 10.5 mg/dL [facility] Est Glomerular Filtration Rate >60 >=60 [facility] Comment: The reported eGFR should be multiplied by 1.2 for patients. The MDRD is not an appropriate measure of renal function for patients with body mass extremes or in patients with acute kidney failure. [email or web address] [email or web address].[email or web address] Blood specimen (specimen) 09/24/2017 11:40 AM EDT 09/24/2017 11:47 AM EDT Narrative Resulting Agency Comment Spec In Lab Kya Enriquez MD CHEMISTRY ORDERABL ES Performing Organization Address [facility]/ZIP Co de Phone Number [facility] [place] [address] * XR Pelvis (Generic) (09/23/2017 5:26 PM [...] EDT) Glucose 87 65 - 199 mg/dL [facility] Comment:Diabetes: >=200 mg/d L plus symptoms Blood Urea Nitrogen 20 10 - 20 mg/dL [facility] Creatinine 0.86 0.80 - 1.50 mg/dL [facility] Sodium 139 135 - 145 mmol/L [facility] Potassium 4.1 3.5 - 5.0 mmol/L [facility] Comment: Please note: ??Patients with WBC >100,000 may have falsely elevated Potassium levels. ??For accurate Potassium quantification in these patients send serum separator tube (gold top) for subsequent determinations. ??Contact the Clinical Chemistry Laboratory if there are any questions. Chloride 100 98 - 107 mmol/L [facility] Carbon Dioxide 26 22 - 31 mmol/L [facility] Anion Gap 13 5 - 15 mmol/L [facility] Calcium 8.9 8.5 - 10.5 mg/dL [facility] Est Glomerular Filtration Rate >60 >=60 [facility] Comment: The reported eGFR should be multiplied by 1.2 for patients. The MDRD is not an appropriate measure of renal function for patients with body mass extremes or in patients with acute kidney failure. [email or web address] Blood specimen (specimen) 09/22/2017 3:32 AM EDT 09/22/2017 4:16 AM EDT Narrative Resulting Agency Comment Spec In Lab Kya Enriquez MD CHEMISTRY ORDERABL ES [facility] [place] [address] * Basic Metabolic Panel (non-fasting) (09/21/2017 10:25 AM EDT) Glucose 92 65 - 199 mg/dL [facility] Comment:Diabetes: >=200 mg/d L plus symptoms Blood Urea Nitrogen 19 10 - 20 mg/dL [facility] Creatinine 0.87 0.80 - 1.50 mg/dL [facility] Sodium 141 135 - 145 mmol/L [facility] Potassium 3.8 3.5 - 5.0 mmol/L [facility] Comment: Please note: ??Patients with WBC >100,000 may have falsely elevated Potassium levels. ??For accurate Potassium quantification in these patients send serum separator tube (gold top) for subsequent determinations. ??Contact the Clinical Chemistry Laboratory if there are any questions. Chloride 102 98 - 107 mmol/L [facility] Carbon Dioxide 28 22 - 31 mmol/L [facility] Anion Gap 11 5 - 15 mmol/L [facility] Calcium 8.8 8.5 - 10.5 mg/dL [facility] Est Glomerular Filtration Rate >60 >=60 [facility] Comment: The reported eGFR should be multiplied by 1.2 for patients. The MDRD is not an appropriate measure of renal function for patients with body mass extremes or in patients with acute kidney failure. [email or web address] [email or web address] Blood specimen (specimen) 09/21/2017 10:25 AM EDT 09/21/2017 10:31 AM EDT Narrative Resulting Agency Comment Spec In Lab Kya Enriquez MD CHEMISTRY ORDERABL ES [facility] [place] [address] * (ABNORMAL) Basic Metabolic Panel (non-fasting) (09/20/2017 5:51 AM EDT) Glucose 93 65 - 199 mg/dL [facility] Comment:Diabetes: >=200 mg/d L plus symptoms Blood Urea Nitrogen 22(H) 10 - 20 mg/dL [facility] Creatinine 0.90 0.80 - 1.50 mg/dL [facility] Sodium 144 135 - 145 mmol/L [facility] Potassium 3.6 3.5 - 5.0 mmol/L [facility] Comment: Please note: ??Patients with WBC >100,000 may have falsely elevated Potassium levels. ??For accurate Potassium quantification in these patients send serum separator tube (gold top) for subsequent determinations. ??Contact the Clinical Chemistry Laboratory if there are any questions. Chloride 104 98 - 107 mmol/L [facility] Carbon Dioxide 26 22 - 31 mmol/L [facility] Anion Gap 14 5 - 15 mmol/L [facility] Calcium 8.9 8.5 - 10.5 mg/dL [facility] Est Glomerular Filtration Rate >60 >=60 [facility] Comment: The reported eGFR should be multiplied by 1.2 for patients. The MDRD is not an appropriate measure of renal function for patients with body mass extremes or in patients with acute kidney failure. [email or web address] [email or web address] Blood specimen (specimen) 09/20/2017 5:51 AM EDT 09/20/2017 6:57 AM EDT Narrative Resulting Agency Comment Spec In Lab Reba Linton MD CHEMISTRY ORDERA BLES [facility] [place] [address] * XR Pelvis Judet or In Out [...] (09/19/2017 3:21 AM EDT) Plat estimate Increased [facility] RBC Morphology Abnormal [facility] Hypochromia Slight [facility] Ovalocytes 1-5 /HPF [facility] Tear Cell 1-5 /HPF [facility] Blood specimen (specimen) 09/19/2017 3:21 AM EDT 09/19/2017 4:23 AM EDT Narrative Resulting Agency Comment Spec In Lab Juliet Medeiros DIRECTOR [employer] [facility] ORDERABLE S [facility] [place] [address] * (ABNORMAL) Differential, Automated (09/19/2017 3:21 AM EDT) Neutrophil % 50.0 % [facility] Neutrophil Absolute 3.69 1.70 - 6.10 x10(3)/mc L [facility] Lymph % 28.8 % [facility] Lymphocytes Abs 2.1 0.9 - 3.2 x10(3)/mc L [facility] Monocyte % 11.0 % [facility] Monocyte Abs 0.8 0.3 - 0.9 x10(3)/mc L [facility] Eos % 7.5 % [facility] Eosinophils Abs 0.6(H) 0.0 - 0.4 x10(3)/[facility] Basophil % 0.9 % [facility] Baso Absolute 0.1 0.0 - 0.1 x10(3)/[facility] Immature Gran % 1.80 % [facility] Comment: Immature granulocytes(IG's)percentage and absolute count will include metamyelocytes, myelocytes, and promyelocytes. Blood smears from CBCs yielding IG's will be scanned manually for concordance. If this scan disagrees with the automated IG or if promyelocytes are noted, a manual differential will be performed. Immature Gran Absolute 0.13(H) 0.00 - 0.04 x10(3)/[facility] Blood specimen (specimen) 09/19/2017 3:21 AM EDT 09/19/2017 4:23 AM EDT Narrative Resulting Agency Comment Spec In Lab Juliet Medeiros APRN HEMATOLOGY ORDERABLE S [facility] [place] [address] * (ABNORMAL) Hemogram (09/19/2017 3:21 AM EDT) White Blood Cell 7.4 4.0 - 9.5 x10(3)/ L [facility] Red Blood Cell 3.52(L) 4.58 - 5.54 x10(6)/ L [facility] Hemoglobin 9.1(L) 13.7 - 16.5 gm/dL [facility] Hematocrit 31.4(L) 40.5 - 48.5 % [facility] Mean Cell Volume 89.2 82.9 - 93.1 fL [facility] Mean Cell Hemoglobin 25.9(L) 27.5 - 32.1 pg [facility] Mean Cell Hemoglobin Concentration 29.0(L) 32.0 - 35.7 gm/dL [facility] Platelet 648(H) 145 - 357 x10(3)/mc L [facility] RDW Standard Deviation 53.9(H) 36.0 - 45.0 fL [facility] RDW coefficient of variation 17.3(H) 11.4 - 13.8 % [facility] Mean Platelet Volume 8.9 7.6 - 12.9 fL [facility] NRBC% auto 0.5 % [facility] NRBC Absolute 0.040(H) 0.000 - 0.000 x10(3)/mc L [facility] Blood specimen (specimen) 09/19/2017 3:21 AM EDT 09/19/2017 4:23 AM EDT Narrative Resulting Agency Comment Spec In Lab Juliet Medeiros APRN HEMATOLOGY ORDERABLE S [facility] [place] [address] * (ABNORMAL) Basic Metabolic Panel (non-fasting) (09/19/2017 3:21 AM EDT) Glucose 91 65 - 199 mg/dL [facility] Comment:Diabetes: >=200 mg/d L plus symptoms Blood Urea Nitrogen 16 10 - 20 mg/dL [facility] Creatinine 1.02 0.80 - 1.50 mg/dL [facility] Sodium 149(H) 135 - 145 mmol/L [facility] Potassium 4.0 3.5 - 5.0 mmol/L [facility] Comment: Please note: ??Patients with WBC >100,000 may have falsely elevated Potassium levels. ??For accurate Potassium quantification in these patients send serum separator tube (gold top) for subsequent determinations. ??Contact the Clinical Chemistry Laboratory if there are any questions. Chloride 108(H) 98 - 107 mmol/L [facility] Carbon Dioxide 26 22 - 31 mmol/L [facility] Anion Gap 15 5 - 15 mmol/L [facility] Calcium 9.1 8.5 - 10.5 mg/dL [facility] Est Glomerular Filtration Rate >60 >=60 [facility] Comment: The reported eGFR should be multiplied by 1.2 for patients. The MDRD is not an appropriate measure of renal function for patients with body mass extremes or in patients with acute kidney failure. http://[email or web address] [email or web address]://[email or web address]/[email or web address] Blood specimen (specimen) 09/19/2017 3:21 AM EDT 09/19/2017 4:23 AM EDT Narrative Resulting Agency Comment Spec In Lab Juliet Medeiros APRN CHEMISTRY ORDERABLES Performing Organization Address [facility] Co de Phone Number [facility] [place] [address] * Sodium (09/18/2017 5:46 AM EDT) Sodium 144 135 - 145 mmol/L [facility] Comment:Rechecked-KS Blood specimen (specimen) 09/18/2017 5:46 AM EDT 09/18/2017 5:59 AM EDT Narrative Resulting Agency Comment Spec In Lab Reba Linton MD CHEMISTRY ORDERA BLES Performing Organization Address [facility]/ZIP Co de Phone Number [facility] [place] [address] * (ABNORMAL) Hemogram (09/18/2017 5:46 AM EDT) White Blood Cell 6.6 4.0 - 9.5 x10(3)/mc L [facility] Red Blood Cell 3.05(L) 4.58 - 5.54 x10(6)/mc L [facility] Hemoglobin 8.2(L) 13.7 - 16.5 gm/dL [facility] Hematocrit 26.2(L) 40.5 - 48.5 % [facility] Mean Cell Volume 85.9 82.9 - 93.1 fL [facility] Mean Cell Hemoglobin 26.9(L) 27.5 - 32.1 pg [facility] Mean Cell Hemoglobin Concentration 31.3(L) 32.0 - 35.7 gm/dL [facility] Platelet 580(H) 145 - 357 x10(3)/mc L [facility] RDW Standard Deviation 50.4(H) 36.0 - 45.0 fL [facility] RDW coefficient of variation 16.7(H) 11.4 - 13.8 % [facility] Mean Platelet Volume 8.8 7.6 - 12.9 fL [facility] NRBC% auto 0.5 % [facility] NRBC Absolute 0.030(H) 0.000 - 0.000 x10(3)/mc L [facility] Blood specimen (specimen) 09/18/2017 5:46 AM EDT 09/18/2017 5:59 AM EDT Narrative Resulting Agency Comment Spec In Lab Reba Linton MD HEMATOLOGY ORDER LYNDSEY Performing Organization Address City/[facility]/ZIP Co de Phone Number [facility] [place] [address] * Sodium (09/17/2017 12:49 PM EDT) Sodium 136 135 - 145 mmol/L [facility] Blood specimen (specimen) 09/17/2017 12:49 PM EDT 09/17/2017 12:54 PM EDT Narrative Resulting Agency Comment Spec In Lab Reba Linton MD CHEMISTRY ORDERA BLES Performing Organization Address City/[facility]/ZIP Co de Phone Number [facility] [place] [address] * (ABNORMAL) Hemogram (09/17/2017 6:28 AM EDT) White Blood Cell 6.8 4.0 - 9.5 x10(3)/ L [facility] Red Blood Cell 3.07(L) 4.58 - 5.54 x10(6)/mc L [facility] Hemoglobin 8.1(L) 13.7 - 16.5 gm/dL [facility] Hematocrit 26.0(L) 40.5 - 48.5 % [facility] Mean Cell Volume 84.7 82.9 - 93.1 fL [facility] Mean Cell Hemoglobin 26.4(L) 27.5 - 32.1 pg [facility] Mean Cell Hemoglobin Concentration 31.2(L) 32.0 - 35.7 gm/dL [facility] Platelet 497(H) 145 - 357 x10(3)/[facility] RDW Standard Deviation 46.9(H) 36.0 - 45.0 [facility] RDW coefficient of variation 15.7(H) 11.4 - 13.8 % [facility] Mean Platelet Volume 8.8 7.6 - 12.9 [facility] NRBC% auto 0.3 % [facility] NRBC Absolute 0.020(H) 0.000 - 0.000 x10(3)/[facility] Blood specimen (specimen) 09/17/2017 6:28 AM EDT 09/17/2017 6:43 AM EDT Narrative Resulting Agency Comment Spec In Lab Reba Linton MD HEMATOLOGY ORDER LYNDSEY [facility] [place] [address] * ABORH Recheck Status (09/16/2017 9:27 AM EDT) ABORH Type Recheck Completed [facility] Blood specimen (specimen) 09/16/2017 9:27 AM EDT 09/16/2017 9:32 AM EDT Narrative Resulting Agency Comment Spec In Lab Delgado Jeffrey MD BLOOD BANK LAB HERMES HANNON Performing Organization Address City/[facility]/ZIP Co de Phone Number [facility] [place] [address] * Antibody screen (09/16/2017 9:27 AM EDT) Ab Screen Interp Negative [facility] Expires at [id number] on: 09/19/2017 [facility] Blood specimen (specimen) 09/16/2017 9:27 AM EDT 09/16/2017 9:32 AM EDT Narrative Resulting Agency Comment Spec In Lab Delgado Jeffrey MD BLOOD BANK LAB HERMES HANNON Performing Organization Address [facility] Co de Phone Number [facility] [place] [address] * ABO/Rh Typing (09/16/2017 9:27 AM EDT) ABORH Type O Pos [facility] Blood specimen (specimen) 09/16/2017 9:27 AM EDT 09/16/2017 9:32 AM EDT Narrative Resulting Agency Comment Spec In Lab Delgado Jeffrey MD BLOOD BANK LAB HERMES HANNON Performing Organization Address City/[facility]/ZIP Co de Phone Number [facility] [place] [id number] * Prepare RBC (09/16/2017 8:35 AM EDT) Dispensed? Yes [facility] Blood specimen (specimen) 09/16/2017 8:35 AM EDT 09/16/2017 8:34 AM EDT Narrative Resulting Agency Comment Spec In Lab Reba Linton MD BLOOD BANK PRODU CT ORDERABLES [facility] [place] [address] * Sodium (09/16/2017 5:07 AM EDT) Sodium 141 135 - 145 mmol/L [facility] Blood specimen (specimen) 09/16/2017 5:07 AM EDT 09/16/2017 5:14 AM EDT Narrative Resulting Agency Comment Spec In Lab Reba Linton MD CHEMISTRY ORDERA BLES [facility] [place] [address] * (ABNORMAL) Differential, Automated (09/16/2017 5:07 AM EDT) Pathologist [facility] Neutrophil % 54.3 % [facility] Neutrophil Absolute 4.04 1.70 - 6.10 x10(3)/mc L [facility] Lymph % 24.3 % [facility] Lymphocytes Abs 1.8 0.9 - 3.2 x10(3)/mc L [facility] Monocyte % 10.0 % [facility] Monocyte Abs 0.7 0.3 - 0.9 x10(3)/mc L [facility] Eos % 8.8 % [facility] Eosinophils Abs 0.6(H) 0.0 - 0.4 x10(3)/mc L [facility] Basophil % 0.4 % [facility] Baso Absolute 0.0 0.0 - 0.1 x10(3)/mc L [facility] Immature Gran % 2.20 % [facility] Comment: Immature granulocytes(IG's)percentage and absolute count will include metamyelocytes, myelocytes, and promyelocytes. Blood smears from CBCs yielding IG's will be scanned manually for concordance. If this scan disagrees with the automated IG or if promyelocytes are noted, a manual differential will be performed. Immature Gran Absolute 0.16(H) 0.00 - 0.04 x10(3)/ L [facility] Blood specimen (specimen) 09/16/2017 5:07 AM EDT 09/16/2017 5:14 AM EDT Narrative Resulting Agency Comment Spec In Lab Delgado Jeffrey MD HEMATOLOGY ORDERABL ES [facility] [place] [address] * (ABNORMAL) Hemogram (09/16/2017 5:07 AM EDT) White Blood Cell 7.4 4.0 - 9.5 x10(3)/[facility] Red Blood Cell 2.58(L) 4.58 - 5.54 x10(6)/[facility] Hemoglobin 6.8(L) 13.7 - 16.5 gm/dL [facility] Hematocrit 21.8(L) 40.5 - 48.5 % [facility] Mean Cell Volume 84.5 82.9 - 93.1 fL [facility] Mean Cell Hemoglobin 26.4(L) 27.5 - 32.1 pg [facility] Mean Cell Hemoglobin Concentration 31.2(L) 32.0 - 35.7 gm/dL [facility] Platelet 366(H) 145 - 357 x10(3)/[facility] RDW Standard Deviation 47.4(H) 36.0 - 45.0 [facility] RDW coefficient of variation 15.7(H) 11.4 - 13.8 % [facility] Mean Platelet Volume 8.7 7.6 - 12.9 [facility] NRBC% auto 0.3 % [facility] NRBC Absolute 0.020(H) 0.000 - 0.000 x10(3)/[facility] Blood specimen (specimen) 09/16/2017 5:07 AM EDT 09/16/2017 5:14 AM EDT Narrative Resulting Agency Comment Spec In Lab Delgado Jeffrey MD HEMATOLOGY ORDERABL ES Performing Organization Address [facility]/ZIP Co de Phone Number [facility] [place] [address] * SCAN DOC: LAB (09/16/2017 12:00 AM EDT) Narrative 09/16/2017 12:00 AM EDT Ordered by an unspecified provider. Scanning Provider MEDIA MGR SCAN EXT O RDR/RSLT * Sodium (09/15/2017 1:48 PM EDT) Pathologist [facility] Sodium 137 135 - 145 mmol/L [facility] Blood specimen (specimen) 09/15/2017 1:48 PM EDT 09/15/2017 1:57 PM EDT Narrative Resulting Agency Comment Spec In Lab Reba Linton MD CHEMISTRY ORDERA BLES Performing Organization Address [facility] Co de Phone Number [facility] [place] [address] * (ABNORMAL) Differential, Automated (09/15/2017 1:48 PM EDT) Neutrophil % 65.7 % [facility] Neutrophil Absolute 5.35 1.70 - 6.10 x10(3)/mc L [facility] Lymph % 14.9 % [facility] Lymphocytes Abs 1.2 0.9 - 3.2 x10(3)/mc L [facility] Monocyte % 7.0 % [facility] Monocyte Abs 0.6 0.3 - 0.9 x10(3)/mc L [facility] Eos % 8.0 % [facility] Eosinophils Abs 0.6(H) 0.0 - 0.4 x10(3)/mc L [facility] Basophil % 0.5 % [facility] Baso Absolute 0.0 0.0 - 0.1 x10(3)/ L [facility] Immature Gran % 3.90 % [facility] Comment: Immature granulocytes(IG's)percentage and absolute count will include metamyelocytes, myelocytes, and promyelocytes. Blood smears from CBCs yielding IG's will be scanned manually for concordance. If this scan disagrees with the automated IG or if promyelocytes are noted, a manual differential will be performed. Immature Gran Absolute 0.32(H) 0.00 - 0.04 x10(3)/ L [facility] Blood specimen (specimen) 09/15/2017 1:48 PM EDT 09/15/2017 1:57 PM EDT Narrative Resulting Agency Comment Spec In Lab Delgado Jeffrey MD HEMATOLOGY ORDERABL ES [facility] [place] [address] * (ABNORMAL) Hemogram (09/15/2017 1:48 PM EDT) White Blood Cell 8.1 4.0 - 9.5 x10(3)/[facility] Red Blood Cell 2.82(L) 4.58 - 5.54 x10(6)/ L [facility] Hemoglobin 7.4(L) 13.7 - 16.5 gm/dL [facility] Hematocrit 24.2(L) 40.5 - 48.5 % [facility] Mean Cell Volume 85.8 82.9 - 93.1 fL [facility] Mean Cell Hemoglobin 26.2(L) 27.5 - 32.1 pg [facility] Mean Cell Hemoglobin Concentration 30.6(L) 32.0 - 35.7 gm/dL [facility] Platelet 399(H) 145 - 357 x10(3)/ L [facility] RDW Standard Deviation 48.6(H) 36.0 - 45.0 fL [facility] RDW coefficient of variation 15.9(H) 11.4 - 13.8 % [facility] Mean Platelet Volume 8.6 7.6 - 12.9 fL [facility] NRBC% auto 0.2 % [facility] NRBC Absolute 0.020(H) 0.000 - 0.000 x10(3)/mc L [facility] Blood specimen (specimen) 09/15/2017 1:48 PM EDT 09/15/2017 1:57 PM EDT Narrative Resulting Agency Comment Spec In Lab Delgado Jeffrey MD HEMATOLOGY ORDERABL ES Performing Organization Address City/[facility]/ZIP Co de Phone Number [facility] [place] [address] * Sodium (09/15/2017 6:07 AM EDT) Sodium 141 135 - 145 mmol/L [facility] Blood specimen (specimen) 09/15/2017 6:07 AM EDT 09/15/2017 6:20 AM EDT Narrative Resulting Agency Comment Spec In Lab Reba Linton MD CHEMISTRY ORDERA BLES Performing Organization Address [facility] Co de Phone Number [facility] [place] [address] * Urinalysis with reflex Culture (09/14/2017 10:32 PM EDT) Glucose, Urine Dipstick Negative Negative mg/dL [facility] Protein, Urine Dipstick Negative Negative mg/dL [facility] Bilirubin, Urine Dipstick Negative Negative mg/dL [facility] Comment: Clinical correlation required for positive Urine Bilirubin results as false positive may occur with some drugs and drug related products. If a false positive is suspected a serum total bilirubin should be considered if clinically indicated. Urobilinogen, Urine Dipstick Normal Normal mg/dL [facility] pH, Urn (dipstick) 5.0 5.0 - 8.0 [facility] Blood, Urine Dipstick Negative Negative mg/dL [facility] Ketone, Urine Dipstick Negative Negative mg/dL [facility] Nitrite, Urine Dipstick Negative Negative [facility] Leukocytes, Urine Dipstick Negative Negative [facility] Appearance, Urine Dipstick Clear Clear [facility] Specific [place] Urine Automated 1.019 1.002 - 1.030 [facility] Color, Urine Dipstick Yellow Yellow [facility] Reflex to Culture No [facility] Urine specimen obtained via straight catheter (specimen) 09/14/2017 10:32 PM EDT 09/14/2017 11:25 PM EDT Narrative Resulting Agency Comment Spec In Lab Shannan Davalos APRN URINE ORDERABLES Performing Organization Address City/[facility]/ZIP Co de Phone Number [facility] [place] [address] * Sodium (09/14/2017 10:16 PM EDT) Sodium 142 135 - 145 mmol/L [facility] Blood specimen (specimen) 09/14/2017 10:16 PM EDT 09/14/2017 10:22 PM EDT Narrative Resulting Agency Comment Spec In Lab Reba Linton MD CHEMISTRY ORDERA BLES Performing Organization Address City/[facility]/ZIP Co de Phone Number [facility] [place] [address] * XR Chest PA or AP 1 [...] silhouette is normal in size. Procedure Note Jonas Garcia MD - 09/14/2017 EXAMINATION: XR CHEST PA OR AP 1 VIEW CLINICAL HISTORY: Fever TECHNIQUE: AP chest. COMPARISON: September 03, 2017. FINDINGS: Low lung volumes are again noted.. No focal consolidation or pleuraleffusion is seen. The cardiac silhouette is normal in size. IMPRESSION No acute cardiopulmonary process is identified. Shannan A Anoop DIRECTOR [employer] IMG DX ORDERABLES * Blood culture (09/14/2017 8:51 PM EDT) Blood Culture No growth at 5 days. [facility] Blood specimen (specimen) 09/14/2017 8:51 PM EDT 09/14/2017 9:30 PM EDT Comment:R AC.BR Narrative Resulting Agency Comment Spec In Lab Shannan A Anoop DIRECTOR [employer] MICROBIOLOGY - BLOOD ORDERABLES Performing Organization Address [facility] Co de Phone Number [facility] [place] [address] * Blood culture (09/14/2017 8:51 PM EDT) Blood Culture No growth at 5 days. [facility] Blood specimen (specimen) 09/14/2017 8:51 PM EDT 09/14/2017 9:30 PM EDT Comment:L AC Narrative Resulting Agency Comment Spec In Lab Shannan Sunni Anoop DIRECTOR [employer] MICROBIOLOGY - BLOOD ORDERABLES Performing Organization Address [facility] Co de Phone Number [facility] [place] [address] * T4, free (09/14/2017 2:09 PM EDT) [facility] Free T4 1.01 0.93 - 1.70 ng/dL [facility] Blood specimen (specimen) Venous Draw / Unknown 09/14/2017 2:09 PM EDT 09/14/2017 4:05 PM EDT Narrative Resulting Agency Comment Spec In Lab Yadi Mccauely MD CHEMISTRY ORDERAB LES Performing Organization Address City/[facility]/ZIP Co de Phone Number [facility] [place] [address] * Sodium (09/14/2017 2:09 PM EDT) [facility] Sodium 145 135 - 145 mmol/L [facility] Blood specimen (specimen) 09/14/2017 2:09 PM EDT 09/14/2017 2:14 PM EDT Narrative Resulting Agency Comment Spec In Lab Reba Linton MD CHEMISTRY ORDERA BLES Performing Organization Address [facility]/ZIP Co de Phone Number [facility] [place] [address] * Magnesium (09/14/2017 2:09 PM EDT) [facility] Magnesium 0.85 0.69 - 1.07 mmol/L [facility] Blood specimen (specimen) 09/14/2017 2:09 PM EDT 09/14/2017 2:14 PM EDT Narrative Resulting Agency Comment Spec In Lab Reba Linton MD CHEMISTRY ORDERA BLES Performing Organization Address City/[facility]/ZIP Co de Phone Number [facility] [place] [address] * Basic Metabolic Panel (non-fasting) (09/14/2017 2:09 PM EDT) [facility] Glucose 73 65 - 199 mg/dL [facility] Comment:Diabetes: >=200 mg/d L plus symptoms Blood Urea Nitrogen 16 10 - 20 mg/dL [facility] Creatinine 0.92 0.80 - 1.50 mg/dL [facility] Sodium 145 135 - 145 mmol/L [facility] Potassium 3.6 3.5 - 5.0 mmol/L [facility] Comment: Please note: ??Patients with WBC >100,000 may have falsely elevated Potassium levels. ??For accurate Potassium quantification in these patients send serum separator tube (gold top) for subsequent determinations. ??Contact the Clinical Chemistry Laboratory if there are any questions. Chloride 104 98 - 107 mmol/L [facility] Carbon Dioxide 27 22 - 31 mmol/L [facility] Anion Gap 14 5 - 15 mmol/L [facility] Calcium 8.6 8.5 - 10.5 mg/dL [facility] Est Glomerular Filtration Rate >60 >=60 [facility] Comment: The reported eGFR should be multiplied by 1.2 for patients. The MDRD is not an appropriate measure of renal function for patients with body mass extremes or in patients with acute kidney failure. http://[employer]/DHnkdep http://[employer]/DHMCnkf Blood specimen (specimen) 09/14/2017 2:09 PM EDT 09/14/2017 2:14 PM EDT Narrative Resulting Agency Comment Spec In Lab Reba Linton MD CHEMISTRY ORDERA BLES Performing Organization Address City/[facility]/ZIP Co de Phone Number [facility] [place] [address] * Sodium (09/14/2017 9:37 AM EDT) Sodium 142 135 - 145 mmol/L [facility] Blood specimen (specimen) 09/14/2017 9:37 AM EDT 09/14/2017 9:40 AM EDT Narrative Resulting Agency Comment Spec In Lab Reba Linton MD CHEMISTRY ORDERA BLES Performing Organization Address [facility] Co de Phone Number [facility] [place] [address] * Sodium (09/14/2017 5:07 AM EDT) Sodium 144 135 - 145 mmol/L [facility] Blood specimen (specimen) 09/14/2017 5:07 AM EDT 09/14/2017 5:30 AM EDT Narrative Resulting Agency Comment Spec In Lab Reba Linton MD CHEMISTRY ORDERA BLES Performing Organization Address [facility] Co de Phone Number [facility] [place] [address] * Sodium (09/13/2017 9:42 PM EST) Sodium 138 135 - 145 mmol/L [facility] Blood specimen (specimen) 09/13/2017 9:42 PM EST 09/13/2017 9:50 PM EST Narrative Resulting Agency Comment Spec In Lab Reba Linton MD CHEMISTRY ORDERA BLES Performing Organization Address [facility] Co de Phone Number [facility] [place] [address] * Sodium (09/13/2017 2:39 PM EST) Sodium 140 135 - 145 mmol/L [facility] Blood specimen (specimen) 09/13/2017 2:39 PM EST 09/13/2017 2:44 PM EST Narrative Resulting Agency Comment Spec In Lab Reba Linton MD CHEMISTRY ORDERA BLES Performing Organization Address [facility] Co de Phone Number [facility] [place] [address] * Osmolality (09/13/2017 9:09 AM EST) Osmolality 291 275 - 295 mOsm/kg [facility] Blood specimen (specimen) 09/13/2017 9:09 AM EST 09/13/2017 9:13 AM EST Narrative Resulting Agency Comment Spec In Lab Ren Sanchez III, MD CHEMISTRY ORDERABLES Performing Organization Address City/[facility]/ZIP Co de Phone Number [facility] [place] [address] * Sodium (09/13/2017 9:09 AM EST) Sodium 143 135 - 145 mmol/L [facility] Blood specimen (specimen) 09/13/2017 9:09 AM EST 09/13/2017 9:13 AM EST Narrative Resulting Agency Comment Spec In Lab Ren Sanchez III, MD CHEMISTRY ORDERABLES Performing Organization Address [facility] Co de Phone Number [facility] [place] [address] * Osmolality, urine, random (09/13/2017 4:35 AM EST) Osmolality, Urine 749 50 - 1,200 mOsm/kg [facility] Urine specimen (specimen) 09/13/2017 4:35 AM EST 09/13/2017 5:03 AM EST Narrative Resulting Agency Comment Spec In Lab Ren Sanchez III, MD URINE ORDERABLES Performing Organization Address City/[facility] Co de Phone Number [facility] [place] [address] * Sodium (09/13/2017 3:57 AM EST) Sodium 142 135 - 145 mmol/L [facility] Blood specimen (specimen) 09/13/2017 3:57 AM EST 09/13/2017 4:05 AM EST Narrative Resulting Agency Comment Spec In Lab Ren Sanchez III, MD CHEMISTRY ORDERABLES Performing Organization Address City/[facility]/ZIP Co de Phone Number [facility] [place] [address] * Osmolality (09/13/2017 3:57 AM EST) Osmolality 292 275 - 295 mOsm/kg [facility] Blood specimen (specimen) 09/13/2017 3:57 AM EST 09/13/2017 4:05 AM EST Narrative Resulting Agency Comment Spec In Lab Ren Sanchez III, MD CHEMISTRY ORDERABLES Performing Organization Address City/[facility]/ZIP Co de Phone Number [facility] [place] [address] * Osmolality, urine, random (09/13/2017 12:38 AM EST) Osmolality, Urine 620 50 - 1,200 mOsm/kg [facility] Urine specimen (specimen) 09/13/2017 12:38 AM EST 09/13/2017 12:56 AM EST Narrative Resulting Agency Comment Spec In Lab Ren Sanchez III, MD URINE ORDERABLES Performing Organization Address City/[facility]/ZIP Co de Phone Number [facility] [place] [address] * Osmolality (09/12/2017 11:43 PM EST) Osmolality 294 275 - 295 mOsm/kg [facility] Blood specimen (specimen) 09/12/2017 11:43 PM EST 09/12/2017 11:49 PM EST Narrative Resulting Agency Comment Spec In Lab Ren Sanchez III, MD CHEMISTRY ORDERABLES Performing Organization Address City/[facility]/ZIP Co de Phone Number [facility] [place] [address] * Sodium (09/12/2017 11:43 PM EST) Sodium 143 135 - 145 mmol/L [facility] Blood specimen (specimen) 09/12/2017 11:43 PM EST 09/12/2017 11:49 PM EST Narrative Resulting Agency Comment Spec In Lab Ren Sanchez III, MD CHEMISTRY ORDERABLES Performing Organization Address City/[facility]/ZIP Co de Phone Number [facility] [place] [address] * Osmolality, urine, random (09/12/2017 8:16 PM EST) Osmolality, Urine 773 50 - 1,200 mOsm/kg [facility] Urine specimen (specimen) 09/12/2017 8:16 PM EST 09/12/2017 8:36 PM EST Narrative Resulting Agency Comment Spec In Lab Ren Sanchez III, MD URINE ORDERABLES Performing Organization Address [facility] [facility] Co de Phone Number [facility] [place] [address] * (ABNORMAL) Osmolality (09/12/2017 7:39 PM EST) Osmolality 296(H) 275 - 295 mOsm/kg [facility] Blood specimen (specimen) 09/12/2017 7:39 PM EST 09/12/2017 7:54 PM EST Narrative Resulting Agency Comment Spec In Lab Ren Sanchez III, MD CHEMISTRY ORDERABLES Performing Organization Address City/[facility]/ZIP Co de Phone Number [facility] [place] [address] * Sodium (09/12/2017 7:39 PM EST) Sodium 142 135 - 145 mmol/L [facility] Blood specimen (specimen) 09/12/2017 7:39 PM EST 09/12/2017 7:54 PM EST Narrative Resulting Agency Comment Spec In Lab Ren Sanchez III, MD CHEMISTRY ORDERABLES Performing Organization Address City/[facility]/ZIP Co de Phone Number [facility] [place] [address] * Osmolality, urine, random (09/12/2017 3:54 PM EST) Osmolality, Urine 779 50 - 1,200 mOsm/kg [facility] Urine specimen (specimen) 09/12/2017 3:54 PM EST 09/12/2017 4:14 PM EST Narrative Resulting Agency Comment Spec In Lab Ren Sanchez III, MD URINE ORDERABLES Performing Organization Address [facility] Phone Number [facility] [place] [address] * (ABNORMAL) Osmolality (09/12/2017 3:52 PM EST) Osmolality 303(H) 275 - 295 mOsm/kg [facility] Blood specimen (specimen) 09/12/2017 3:52 PM EST 09/12/2017 3:57 PM EST Narrative Resulting Agency Comment Spec In Lab Ren Sanchez III, MD CHEMISTRY ORDERABLES Performing Organization Address [facility] Phone Number [facility] [place] [address] * Sodium (09/12/2017 3:52 PM EST) Sodium 145 135 - 145 mmol/L [facility] Blood specimen (specimen) 09/12/2017 3:52 PM EST 09/12/2017 3:57 PM EST Narrative Resulting Agency Comment Spec In Lab Ren Sanchez III, MD CHEMISTRY ORDERABLES Performing Organization Address [facility] de Phone Number [facility] [place] [address] * Osmolality, urine, random (09/12/2017 1:19 PM EST) Osmolality, Urine 157 50 - 1,200 mOsm/kg [facility] Urine specimen (specimen) 09/12/2017 1:19 PM EST 09/12/2017 2:00 PM EST Narrative Resulting Agency Comment Spec In Lab Ren Sanchez III, MD URINE ORDERABLES Performing Organization Address [facility] Co de Phone Number [facility] [place] [address] * (ABNORMAL) Osmolality (09/12/2017 12:14 PM EST) Osmolality 302(H) 275 - 295 mOsm/kg [facility] Blood specimen (specimen) 09/12/2017 12:14 PM EST 09/12/2017 12:30 PM EST Narrative Resulting Agency Comment Spec In Lab Ren Sanchez III, MD CHEMISTRY ORDERABLES Performing Organization Address [facility] Co de Phone Number [facility] [place] [address] * (ABNORMAL) Sodium (09/12/2017 12:14 PM EST) Sodium 148(H) 135 - 145 mmol/L [facility] Blood specimen (specimen) 09/12/2017 12:14 PM EST 09/12/2017 12:30 PM EST Narrative Resulting Agency Comment Spec In Lab Ren Sanchez III, MD CHEMISTRY ORDERABLES Performing Organization Address [facility] Co de Phone Number [facility] [place] [address] * Sodium (09/12/2017 7:48 AM EST) Sodium 141 135 - 145 mmol/L [facility] Blood specimen (specimen) 09/12/2017 7:48 AM EST 09/12/2017 8:06 AM EST Narrative Resulting Agency Comment Spec In Lab Ren Sanchez III, MD CHEMISTRY ORDERABLES Performing Organization Address [facility] Co de Phone Number [facility] [place] [address] * Sodium (09/12/2017 4:01 AM EST) Sodium 136 135 - 145 mmol/L [facility] Blood specimen (specimen) 09/12/2017 4:01 AM EST 09/12/2017 4:06 AM EST Narrative Resulting Agency Comment Spec In Lab Ren Sanchez III, MD CHEMISTRY ORDERABLES Performing Organization Address City/[facility]/ZIP Co de Phone Number [facility] [place] [address] * (ABNORMAL) Sodium (09/12/2017 12:02 AM EST) Sodium 133(L) 135 - 145 mmol/L [facility] Blood specimen (specimen) 09/12/2017 12:02 AM EST 09/12/2017 12:06 AM EST Narrative Resulting Agency Comment Spec In Lab Ren Sanchez III, MD CHEMISTRY ORDERABLES Performing Organization Address City/[facility]/ZIP Co de Phone Number [facility] [place] [address] * Sodium (09/11/2017 7:53 PM EST) Sodium 135 135 - 145 mmol/L [facility] Blood specimen (specimen) 09/11/2017 7:53 PM EST 09/11/2017 7:57 PM EST Narrative Resulting Agency Comment Spec In Lab Ren Sanchez III, MD CHEMISTRY ORDERABLES Performing Organization Address City/[facility]/ZIP Co de Phone Number [facility] [place] [address] * Sodium (09/11/2017 5:56 PM EST) Sodium 135 135 - 145 mmol/L [facility] Blood specimen (specimen) 09/11/2017 5:56 PM EST 09/11/2017 6:06 PM EST Narrative Resulting Agency Comment Spec In Lab Ren Sanchez III, MD CHEMISTRY ORDERABLES Performing Organization Address City/[facility]/ZIP Co de Phone Number [facility] [place] [address] * Sodium (09/11/2017 3:15 PM EST) Sodium 135 135 - 145 mmol/L [facility] Blood specimen (specimen) 09/11/2017 3:15 PM EST 09/11/2017 3:22 PM EST Narrative Resulting Agency Comment Spec In Lab Ren Sanchez III, MD CHEMISTRY ORDERABLES Performing Organization Address [facility] Co de Phone Number [facility] [place] [address] * (ABNORMAL) Sodium (09/11/2017 12:51 PM EST) Sodium 134(L) 135 - 145 mmol/L [facility] Blood specimen (specimen) 09/11/2017 12:51 PM EST 09/11/2017 1:03 PM EST Narrative Resulting Agency Comment Spec In Lab Ren Sanchez III, MD CHEMISTRY ORDERABLES Performing Organization Address [facility] Co de Phone Number [facility] [place] [address] * (ABNORMAL) Sodium (09/11/2017 10:48 AM EST) Sodium 132(L) 135 - 145 mmol/L [facility] Blood specimen (specimen) 09/11/2017 10:48 AM EST 09/11/2017 10:55 AM EST Narrative Resulting Agency Comment Spec In Lab Ren Sanchez III, MD CHEMISTRY ORDERABLES Performing Organization Address [facility] Co de Phone Number [facility] [place] [address] * (ABNORMAL) Osmolality (09/11/2017 8:33 AM EST) Osmolality 271(L) 275 - 295 mOsm/kg [facility] Blood specimen (specimen) 09/11/2017 8:33 AM EST 09/11/2017 8:39 AM EST Narrative Resulting Agency Comment Spec In Lab Ren Sanchez III, MD CHEMISTRY ORDERABLES Performing Organization Address City/[facility] Co de Phone Number [facility] [place] [address] * (ABNORMAL) Sodium (09/11/2017 8:33 AM EST) Sodium 131(L) 135 - 145 mmol/L [facility] Blood specimen (specimen) 09/11/2017 8:33 AM EST 09/11/2017 8:39 AM EST Narrative Resulting Agency Comment Spec In Lab Ren Sanchez III, MD CHEMISTRY ORDERABLES Performing Organization Address [facility] Co de Phone Number [facility] [place] [address] * Osmolality, urine, random (09/11/2017 7:56 AM EST) Osmolality, Urine 571 50 - 1,200 mOsm/kg [facility] Urine specimen (specimen) 09/11/2017 7:56 AM EST 09/11/2017 8:16 AM EST Narrative Resulting Agency Comment Spec In Lab Ren Sanchez III, MD URINE ORDERABLES Performing Organization Address [facility] Co de Phone Number [facility] [place] [address] * (ABNORMAL) Basic Metabolic Panel (non-fasting) (09/11/2017 3:47 AM EST) Glucose 89 65 - 199 mg/dL [facility] Comment:Diabetes: >=200 mg/d L plus symptoms Blood Urea Nitrogen 14 10 - 20 mg/dL [facility] Creatinine 0.63(L) 0.80 - 1.50 mg/dL [facility] Sodium 128(L) 135 - 145 mmol/L [facility] Potassium 3.5 3.5 - 5.0 mmol/L [facility] Comment: Please note: ??Patients with WBC >100,000 may have falsely elevated Potassium levels. ??For accurate Potassium quantification in these patients send serum separator tube (gold top) for subsequent determinations. ??Contact the Clinical Chemistry Laboratory if there are any questions. Chloride 91(L) 98 - 107 mmol/L [facility] Carbon Dioxide 24 22 - 31 mmol/L [facility] Anion Gap 13 5 - 15 mmol/L [facility] Calcium 8.1(L) 8.5 - 10.5 mg/dL [facility] Est Glomerular Filtration Rate >60 >=60 [facility] Comment: The reported eGFR should be multiplied by 1.2 for patients. The MDRD is not an appropriate measure of renal function for patients with body mass extremes or in patients with acute kidney failure. http://bigtincan/DHnkdep http://bigtincan/DHMCnkf Blood specimen (specimen) 09/11/2017 3:47 AM EST 09/11/2017 4:03 AM EST Narrative Resulting Agency Comment Spec In Lab Ren Sanchez III, MD CHEMISTRY ORDERABLES Performing Organization Address [facility] Co de Phone Number [facility] [place] [address] * (ABNORMAL) Sodium (09/10/2017 6:57 PM EST) Sodium 130(L) 135 - 145 mmol/L [facility] Blood specimen (specimen) 09/10/2017 6:57 PM EST 09/10/2017 7:02 PM EST Narrative Resulting Agency Comment Spec In Lab Ren Sanchez III, MD CHEMISTRY ORDERABLES Performing Organization Address [facility] Co de Phone Number [facility] [place] [address] * (ABNORMAL) Differential, Automated (09/10/2017 3:50 AM EST) Neutrophil % 51.9 % [facility] Neutrophil Absolute 4.55 1.70 - 6.10 x10(3)/[facility] LAB[facility]AT[facility] Lymph % 21.8 % [facility] Lymphocytes Abs 1.9 0.9 - 3.2 x10(3)/[facility] LAB[facility]ATORY Monocyte % 10.6 % [facility] Monocyte Abs 0.9 0.3 - 0.9 x10(3)/[facility] LABORATORY Eos % 7.0 % [facility] Eosinophils Abs 0.6(H) 0.0 - 0.4 x10(3)/[facility] LABORATORY Basophil % 0.6 % [facility] Baso Absolute 0.0 0.0 - 0.1 x10(3)/[facility] LABORATORY Immature Gran % 8.10 % [facility] Comment: Immature granulocytes(IG's)percentage and absolute count will include metamyelocytes, myelocytes, and promyelocytes. Blood smears from CBCs yielding IG's will be scanned manually for concordance. If this scan disagrees with the automated IG or if promyelocytes are noted, a manual differential will be performed. Immature Gran Absolute 0.71(H) 0.00 - 0.04 x10(3)/[facility] LAB[facility]ATORY Blood specimen (specimen) 09/10/2017 3:50 AM EST 09/10/2017 4:15 AM EST Narrative Resulting Agency Comment Spec In Lab Christopher Dalal MD HEMATOLOGY ORDERABLE S [facility] [place] [address] * (ABNORMAL) Hemogram (09/10/2017 3:50 AM EST) White Blood Cell 8.8 4.0 - 9.5 x10(3)/[facility] LAB[facility]ATORY Red Blood Cell 3.06(L) 4.58 - 5.54 x10(6)/[facility] LAB[facility]ATORY Hemoglobin 8.5(L) 13.7 - 16.5 gm/dL [facility] Hematocrit 25.7(L) 40.5 - 48.5 % [facility] Mean Cell Volume 84.0 82.9 - 93.1 fL [facility] Mean Cell Hemoglobin 27.8 27.5 - 32.1 pg [facility] Mean Cell Hemoglobin Concentration 33.1 32.0 - 35.7 gm/dL [facility] Platelet 332 145 - 357 x10(3)/mc L [facility] RDW Standard Deviation 45.8(H) 36.0 - 45.0 fL [facility] RDW coefficient of variation 15.7(H) 11.4 - 13.8 % [facility] Mean Platelet Volume 9.1 7.6 - 12.9 [facility] LABORATORY NRBC% auto 0.3 % [facility] NRBC Absolute 0.030(H) 0.000 - 0.000 x10(3)/mc L [facility] Blood specimen (specimen) 09/10/2017 3:50 AM EST 09/10/2017 4:15 AM EST Narrative Resulting Agency Comment Spec In Lab Christopher Dalal MD HEMATOLOGY ORDERABLE S [facility] [place] [address] * Sodium (09/10/2017 3:50 AM EST) Sodium 138 135 - 145 mmol/L [facility] Blood specimen (specimen) 09/10/2017 3:50 AM EST 09/10/2017 4:15 AM EST Narrative Resulting Agency Comment Spec In Lab Ren Sanchez III, MD CHEMISTRY ORDERABLES Performing Organization Address City/[facility]/ZIP Co de Phone Number [facility] [place] [address] * Sodium (09/09/2017 11:02 AM EST) Sodium 141 135 - 145 mmol/L [facility] Blood specimen (specimen) 09/09/2017 11:02 AM EST 09/09/2017 11:13 AM EST Narrative Resulting Agency Comment Spec In Lab Ren Sanchez III, MD CHEMISTRY ORDERABLES Performing Organization Address [facility] Co de Phone Number [facility] [place] [address] * Scan, Peripheral Blood (09/09/2017 3:21 AM EST) [facility] Plat estimate Normal [facility] RBC Morphology Abnormal [facility] Polychromasia Present >5/HPF [facility] Ovalocytes 1-5 /HPF [facility] Blood specimen (specimen) 09/09/2017 3:21 AM EST 09/09/2017 3:31 AM EST Narrative Resulting Agency Comment Spec In Lab Christopher Dalal MD HEMATOLOGY ORDERABLE S Performing Organization Address City/[facility]/ZIP Co de Phone Number [facility] [place] [address] * (ABNORMAL) Differential, Automated (09/09/2017 3:21 AM EST) [facility] Neutrophil % 50.7 % [facility] Neutrophil Absolute 3.95 1.70 - 6.10 x10(3)/mc L [facility] Lymph % 21.8 % [facility] Lymphocytes Abs 1.7 0.9 - 3.2 x10(3)/mc L [facility] Monocyte % 10.3 % [facility] Monocyte Abs 0.8 0.3 - 0.9 x10(3)/mc L [facility] Eos % 7.9 % [facility] Eosinophils Abs 0.6(H) 0.0 - 0.4 x10(3)/mc L [facility] Basophil % 0.8 % [facility] Baso Absolute 0.1 0.0 - 0.1 x10(3)/ L [facility] Immature Gran % 8.50 % [facility] Comment: Immature granulocytes(IG's)percentage and absolute count will include metamyelocytes, myelocytes, and promyelocytes. Blood smears from CBCs yielding IG's will be scanned manually for concordance. If this scan disagrees with the automated IG or if promyelocytes are noted, a manual differential will be performed. Immature Gran Absolute 0.66(H) 0.00 - 0.04 x10(3)/ L [facility] Blood specimen (specimen) 09/09/2017 3:21 AM EST 09/09/2017 3:31 AM EST Narrative Resulting Agency Comment Spec In Lab Christopher Dalal MD HEMATOLOGY ORDERABLE S Performing Organization Address City/State/[facility] Co de Phone Number [facility] [place] [address] * (ABNORMAL) Hemogram (09/09/2017 3:21 AM EST) White Blood Cell 7.8 4.0 - 9.5 x10(3)/[facility] LABORATORY Red Blood Cell 2.80(L) 4.58 - 5.54 x10(6)/ L [facility] Hemoglobin 7.7(L) 13.7 - 16.5 gm/dL [facility] Hematocrit 23.7(L) 40.5 - 48.5 % [facility] Mean Cell Volume 84.6 82.9 - 93.1 fL [facility] Mean Cell Hemoglobin 27.5 27.5 - 32.1 pg [facility] Mean Cell Hemoglobin Concentration 32.5 32.0 - 35.7 gm/dL [facility] Platelet 245 145 - 357 x10(3)/ L [facility] RDW Standard Deviation 46.8(H) 36.0 - 45.0 fL [facility] RDW coefficient of variation 15.5(H) 11.4 - 13.8 % [facility] Mean Platelet Volume 9.1 7.6 - 12.9 fL [facility] NRBC% auto 0.8 % [facility] NRBC Absolute 0.060(H) 0.000 - 0.000 x10(3)/mc L [facility] Blood specimen (specimen) 09/09/2017 3:21 AM EST 09/09/2017 3:31 AM EST Narrative Resulting Agency Comment Spec In Lab Christopher Dalal MD HEMATOLOGY ORDERABLE S Performing Organization Address [facility]/ZIP Co de Phone Number [facility] [place] [address] * Sodium (09/09/2017 3:21 AM EST) Sodium 140 135 - 145 mmol/L [facility] Blood specimen (specimen) 09/09/2017 3:21 AM EST 09/09/2017 3:31 AM EST Narrative Resulting Agency Comment Spec In Lab Ren Sanchez III, MD CHEMISTRY ORDERABLES Performing Organization Address [facility] Co de Phone Number [facility] [place] [address] * Sodium (09/08/2017 6:19 PM EST) Sodium 138 135 - 145 mmol/L [facility] Blood specimen (specimen) 09/08/2017 6:19 PM EST 09/08/2017 6:26 PM EST Narrative Resulting Agency Comment Spec In Lab Ren Sanchez III, MD CHEMISTRY ORDERABLES Performing Organization Address [facility] Co de Phone Number [facility] [place] [address] * U24 Hrs and Volume (09/08/2017 6:00 PM EST) Hours Collected 24 hour(s) [facility] Total Volume 4,700 mL [facility] Urine specimen (specimen) 09/08/2017 6:00 PM EST 09/08/2017 6:42 PM EST Narrative Resulting Agency Comment Spec In Lab Ren Sanchez III, MD CHEMISTRY ORDERABLES Performing Organization Address [facility] de Phone Number [facility] [place] [address] * Phosphorus, urine, 24 hour (09/08/2017 6:00 PM EST) Phosphorus Concentration, U24 12.5 mg/dL [facility] Phosphorus, 24 Hour Urine 0.6 0.4 - 1.3 gm/24hr [facility] Urine specimen (specimen) 09/08/2017 6:00 PM EST 09/08/2017 6:42 PM EST Narrative Resulting Agency Comment Spec In Lab Ren Sanchez III, MD URINE ORDERABLES Performing Organization Address [facility] de Phone Number [facility] [place] [address] * Creatinine, urine, 24 hour (09/08/2017 6:00 PM EST) Cre Concentration, U24 37 mg/dL [facility] Creatinine, 24 Hour Urine 1.74 0.80 - 1.90 gm/24hr [facility] Urine specimen (specimen) 09/08/2017 6:00 PM EST 09/08/2017 6:42 PM EST Narrative Resulting Agency Comment Spec In Lab Ren Sanchez III, MD URINE ORDERABLES Performing Organization Address [facility] Phone Number [facility] [place] [address] * (ABNORMAL) Calcium, urine, 24 hour (09/08/2017 6:00 PM EST) Ca Concentration, U24 7.6 mg/dL [facility] Calcium, 24 Hour Urine 357.2(H) 50.0 - 300.0 mg/24hr [facility] Comment:Reference Range: 50. 0-300.0 mg/24 hour based on diet. Urine specimen (specimen) 09/08/2017 6:00 PM EST 09/08/2017 6:42 PM EST Narrative Resulting Agency Comment Spec In Lab Ren Sanchez III, MD URINE ORDERABLES Performing Organization Address [facility] Co de Phone Number [facility] [place] [address] * Sodium (09/08/2017 11:58 AM EST) Pathologist [facility] Sodium 141 135 - 145 mmol/L [facility] Blood specimen (specimen) 09/08/2017 11:58 AM EST 09/08/2017 12:11 PM EST Narrative Resulting Agency Comment Spec In Lab Ren Sanchez III, MD CHEMISTRY ORDERABLES Performing Organization Address [facility] de Phone Number [facility] [place] [address] * (ABNORMAL) Differential, Automated (09/08/2017 3:34 AM EST) Pathologist [facility] Neutrophil % 53.0 % [facility] Neutrophil Absolute 3.33 1.70 - 6.10 x10(3)/mc L [facility] Lymph % 25.8 % [facility] Lymphocytes Abs 1.6 0.9 - 3.2 x10(3)/mc L [facility] Monocyte % 8.4 % [facility] Monocyte Abs 0.5 0.3 - 0.9 x10(3)/mc L [facility] Eos % 8.8 % [facility] Eosinophils Abs 0.6(H) 0.0 - 0.4 x10(3)/mc L [facility] Basophil % 0.3 % [facility] Baso Absolute 0.0 0.0 - 0.1 x10(3)/mc L [facility] Immature Gran % 3.70 % [facility] Comment: Immature granulocytes(IG's)percentage and absolute count will include metamyelocytes, myelocytes, and promyelocytes. Blood smears from CBCs yielding IG's will be scanned manually for concordance. If this scan disagrees with the automated IG or if promyelocytes are noted, a manual differential will be performed. Immature Gran Absolute 0.23(H) 0.00 - 0.04 x10(3)/[facility] Blood specimen (specimen) 09/08/2017 3:34 AM EST 09/08/2017 3:59 AM EST Narrative Resulting Agency Comment Spec In Lab Christopher Dalal MD HEMATOLOGY ORDERABLE S [facility] [place] [address] * (ABNORMAL) Hemogram (09/08/2017 3:34 AM EST) White Blood Cell 6.3 4.0 - 9.5 x10(3)/[facility] Red Blood Cell 2.64(L) 4.58 - 5.54 x10(6)/[facility] Hemoglobin 7.2(L) 13.7 - 16.5 gm/dL [facility] Hematocrit 21.8(L) 40.5 - 48.5 % [facility] Mean Cell Volume 82.6(L) 82.9 - 93.1 fL [facility] Mean Cell Hemoglobin 27.3(L) 27.5 - 32.1 pg [facility] Mean Cell Hemoglobin Concentration 33.0 32.0 - 35.7 gm/dL [facility] Platelet 206 145 - 357 x10(3)/[facility] RDW Standard Deviation 45.4(H) 36.0 - 45.0 fL [facility] RDW coefficient of variation 15.4(H) 11.4 - 13.8 % [facility] Mean Platelet Volume 9.3 7.6 - 12.9 fL [facility] NRBC% auto 0.8 % [facility] NRBC Absolute 0.050(H) 0.000 - 0.000 x10(3)/mc L [facility] Blood specimen (specimen) 09/08/2017 3:34 AM EST 09/08/2017 3:59 AM EST Narrative Resulting Agency Comment Spec In Lab Christopher Dalal MD HEMATOLOGY ORDERABLE S Performing Organization Address City/[facility]/ZIP Co de Phone Number [facility] [place] [address] * Sodium (09/08/2017 3:34 AM EST) Sodium 143 135 - 145 mmol/L [facility] Blood specimen (specimen) 09/08/2017 3:34 AM EST 09/08/2017 3:59 AM EST Narrative Resulting Agency Comment Spec In Lab Ren Sanchez III, MD CHEMISTRY ORDERABLES Performing Organization Address [facility] Co de Phone Number [facility] [place] [address] * Phosphorus (09/08/2017 3:34 AM EST) Phosphorus 3.2 2.5 - 4.5 mg/dL [facility] Blood specimen (specimen) 09/08/2017 3:34 AM EST 09/08/2017 3:59 AM EST Narrative Resulting Agency Comment Spec In Lab Ren Sanchez III, MD CHEMISTRY ORDERABLES Performing Organization Address [facility] Co de Phone Number [facility] [place] [address] * (ABNORMAL) Calcium (09/08/2017 3:34 AM EST) Calcium 7.8(L) 8.5 - 10.5 mg/dL [facility] Blood specimen (specimen) 09/08/2017 3:34 AM EST 09/08/2017 3:59 AM EST Narrative Resulting Agency Comment Spec In Lab Ren Sanchez III, MD CHEMISTRY ORDERABLES Performing Organization Address [facility] Co de Phone Number [facility] [place] [address] * Sodium (09/07/2017 12:20 PM EST) Sodium 140 135 - 145 mmol/L [facility] Blood specimen (specimen) 09/07/2017 12:20 PM EST 09/07/2017 12:26 PM EST Narrative Resulting Agency Comment Spec In Lab Ren Sanchez III, MD CHEMISTRY ORDERABLES Performing Organization Address [facility] Phone Number [facility] [place] [address] * Sodium (09/07/2017 4:01 AM EST) Sodium 141 135 - 145 mmol/L [facility] Blood specimen (specimen) 09/07/2017 4:01 AM EST 09/07/2017 4:33 AM EST Narrative Resulting Agency Comment Spec In Lab Fran Gilliam MD CHEMISTRY ORDERABL ES Performing Organization Address [facility] Phone Number [facility] [place] [address] * (ABNORMAL) Differential, Automated (09/07/2017 4:01 AM EST) Neutrophil % 64.9 % [facility] Neutrophil Absolute 3.64 1.70 - 6.10 x10(3)/mc L [facility] Lymph % 20.0 % [facility] Lymphocytes Abs 1.1 0.9 - 3.2 x10(3)/mc L [facility] Monocyte % 7.8 % [facility] Monocyte Abs 0.4 0.3 - 0.9 x10(3)/[facility] Eos % 4.8 % [facility] Eosinophils Abs 0.3 0.0 - 0.4 x10(3)/[facility] Basophil % 0.5 % [facility] Baso Absolute 0.0 0.0 - 0.1 x10(3)/[facility] Immature Gran % 2.00 % [facility] Comment: Immature granulocytes(IG's)percentage and absolute count will include metamyelocytes, myelocytes, and promyelocytes. Blood smears from CBCs yielding IG's will be scanned manually for concordance. If this scan disagrees with the automated IG or if promyelocytes are noted, a manual differential will be performed. Immature Gran Absolute 0.11(H) 0.00 - 0.04 x10(3)/[facility] Blood specimen (specimen) 09/07/2017 4:01 AM EST 09/07/2017 4:33 AM EST Narrative Resulting Agency Comment Spec In Lab Christopher Dalal MD HEMATOLOGY ORDERABLE S Performing Organization Address City/State/[facility] Co de Phone Number [facility] [place] [address] * (ABNORMAL) Hemogram (09/07/2017 4:01 AM EST) White Blood Cell 5.6 4.0 - 9.5 x10(3)/[facility] Red Blood Cell 2.52(L) 4.58 - 5.54 x10(6)/[facility] Hemoglobin 7.0(L) 13.7 - 16.5 gm/dL [facility] Hematocrit 20.5(L) 40.5 - 48.5 % [facility] Mean Cell Volume 81.3(L) 82.9 - 93.1 fL [facility] Mean Cell Hemoglobin 27.8 27.5 - 32.1 pg [facility] Mean Cell Hemoglobin Concentration 34.1 32.0 - 35.7 gm/dL [facility] Platelet 162 145 - 357 x10(3)/mc L [facility] RDW Standard Deviation 44.5 36.0 - 45.0 [facility] RDW coefficient of variation 15.3(H) 11.4 - 13.8 % [facility] Mean Platelet Volume 9.5 7.6 - 12.9 [facility] NRBC% auto 0.4 % [facility] NRBC Absolute 0.020(H) 0.000 - 0.000 x10(3)/mc L [facility] Blood specimen (specimen) 09/07/2017 4:01 AM EST 09/07/2017 4:33 AM EST Narrative Resulting Agency Comment Spec In Lab Christopher Dalal MD HEMATOLOGY ORDERABLE S Performing Organization Address City/[facility]/ZIP Co de Phone Number [facility] [place] [address] * Sodium (09/06/2017 11:27 PM EST) Sodium 144 135 - 145 mmol/L [facility] Blood specimen (specimen) 09/06/2017 11:27 PM EST 09/07/2017 12:10 AM EST Narrative Resulting Agency Comment Spec In Lab Fran Gilliam MD CHEMISTRY ORDERABL ES Performing Organization Address [facility] Co de Phone Number [facility] [place] [address] * (ABNORMAL) Calcium (09/06/2017 11:27 PM EST) Calcium 7.6(L) 8.5 - 10.5 mg/dL [facility] Blood specimen (specimen) 09/06/2017 11:27 PM EST 09/07/2017 12:10 AM EST Narrative Resulting Agency Comment Spec In Lab Ren Sanchez III, MD CHEMISTRY ORDERABLES Performing Organization Address [facility]/ZIP Co de Phone Number [facility] [place] [address] * Phosphorus (09/06/2017 11:27 PM EST) Phosphorus 3.4 2.5 - 4.5 mg/dL [facility] Blood specimen (specimen) 09/06/2017 11:27 PM EST 09/07/2017 12:10 AM EST Narrative Resulting Agency Comment Spec In Lab Ren Sanchez III, MD CHEMISTRY ORDERABLES Performing Organization Address [facility] Co de Phone Number [facility] [place] [address] * Sodium (09/06/2017 7:41 PM EST) Sodium 143 135 - 145 mmol/L [facility] Blood specimen (specimen) 09/06/2017 7:41 PM EST 09/06/2017 7:45 PM EST Narrative Resulting Agency Comment Spec In Lab Fran Gilliam MD CHEMISTRY ORDERABL ES Performing Organization Address [facility] Co de Phone Number [facility] [place] [address] * Sodium (09/06/2017 3:49 PM EST) Sodium 144 135 - 145 mmol/L [facility] Blood specimen (specimen) Venous Draw / Unknown 09/06/2017 3:49 PM EST 09/06/2017 3:58 PM EST Narrative Resulting Agency Comment Spec In Lab Guerrero Tillman MD CHEMISTRY HERMES HANNON Performing Organization Address [facility]/ZIP Co de Phone Number [facility] [place] [address] * (ABNORMAL) Calcium (09/06/2017 3:49 PM EST) Calcium 8.0(L) 8.5 - 10.5 mg/dL [facility] Blood specimen (specimen) 09/06/2017 3:49 PM EST 09/06/2017 3:58 PM EST Narrative Resulting Agency Comment Spec In Lab Ren Sanchez III, MD CHEMISTRY ORDERABLES Performing Organization Address [facility]/ZIP Co de Phone Number [facility] [place] [address] * Phosphorus (09/06/2017 3:49 PM EST) Phosphorus 3.9 2.5 - 4.5 mg/dL [facility] Blood specimen (specimen) 09/06/2017 3:49 PM EST 09/06/2017 3:58 PM EST Narrative Resulting Agency Comment Spec In Lab Ren Sanchez III, MD CHEMISTRY ORDERABLES Performing Organization Address [facility]/ZIP Co de Phone Number [facility] [place] [address] * (ABNORMAL) Albumin Level (09/06/2017 12:31 PM EST) Albumin 2.5(L) 3.2 - 5.2 gm/dL [facility] Blood specimen (specimen) 09/06/2017 12:31 PM EST 09/06/2017 12:38 PM EST Narrative Resulting Agency Comment Spec In Lab Genevieve Page MD CHEMISTRY ORDERABLES Performing Organization Address City/[facility]/ZIP Co de Phone Number [facility] [place] [address] * Sodium (09/06/2017 12:31 PM EST) Sodium 145 135 - 145 mmol/L [facility] Blood specimen (specimen) 09/06/2017 12:31 PM EST 09/06/2017 12:37 PM EST Narrative Resulting Agency Comment Spec In Lab Fran Gilliam MD CHEMISTRY ORDERABL ES Performing Organization Address [facility] Co de Phone Number [facility] [place] [address] * (ABNORMAL) Albumin Level (09/06/2017 8:33 AM EST) Albumin 2.4(L) 3.2 - 5.2 gm/dL [facility] Blood specimen (specimen) 09/06/2017 8:33 AM EST 09/06/2017 8:39 AM EST Narrative Resulting Agency Comment Spec In Lab Genevieve Page MD CHEMISTRY ORDERABLES Performing Organization Address [facility] Co de Phone Number [facility] [place] [address] * Phosphorus (09/06/2017 8:33 AM EST) Phosphorus 3.2 2.5 - 4.5 mg/dL [facility] Blood specimen (specimen) 09/06/2017 8:33 AM EST 09/06/2017 8:39 AM EST Narrative Resulting Agency Comment Spec In Lab Fran Gilliam MD CHEMISTRY ORDERABL ES Performing Organization Address [facility] Co de Phone Number [facility] [place] [address] * (ABNORMAL) Calcium (09/06/2017 8:33 AM EST) Calcium 8.1(L) 8.5 - 10.5 mg/dL [facility] Blood specimen (specimen) 09/06/2017 8:33 AM EST 09/06/2017 8:39 AM EST Narrative Resulting Agency Comment Spec In Lab Fran Gilliam MD CHEMISTRY ORDERABL ES Performing Organization Address [facility] Co de Phone Number [facility] [place] [address] * (ABNORMAL) Sodium (09/06/2017 8:33 AM EST) Sodium 146(H) 135 - 145 mmol/L [facility] Blood specimen (specimen) 09/06/2017 8:33 AM EST 09/06/2017 8:39 AM EST Narrative Resulting Agency Comment Spec In Lab Fran Gilliam MD CHEMISTRY ORDERABL ES [facility] [place] [address] * (ABNORMAL) Basic Metabolic Panel (non-fasting) (09/06/2017 8:33 AM EST) Glucose 72 65 - 199 mg/dL [facility] Comment:Diabetes: >=200 mg/d L plus symptoms Blood Urea Nitrogen 18 10 - 20 mg/dL [facility] Creatinine 0.79(L) 0.80 - 1.50 mg/dL [facility] Sodium 146(H) 135 - 145 mmol/L [facility] Potassium 3.7 3.5 - 5.0 mmol/L [facility] Comment: Please note: ??Patients with WBC >100,000 may have falsely elevated Potassium levels. ??For accurate Potassium quantification in these patients send serum separator tube (gold top) for subsequent determinations. ??Contact the Clinical Chemistry Laboratory if there are any questions. Chloride 111(H) 98 - 107 mmol/L [facility] Carbon Dioxide 26 22 - 31 mmol/L [facility] Anion Gap 9 5 - 15 mmol/L [facility] Calcium 8.1(L) 8.5 - 10.5 mg/dL [facility] Est Glomerular Filtration Rate >60 >=60 [facility] Comment: The reported eGFR should be multiplied by 1.2 for patients. The MDRD is not an appropriate measure of renal function for patients with body mass extremes or in patients with acute kidney failure. http://[employer]ogn[employer]ics/DHnkdep http://bigtincan/DHMCnkf Blood specimen (specimen) 09/06/2017 8:33 AM EST 09/06/2017 8:39 AM EST Narrative Resulting Agency Comment Spec In Lab Fran Gilliam MD CHEMISTRY ORDERABL ES [facility] [place] [address] * (ABNORMAL) Hemogram (09/06/2017 8:33 AM EST) White Blood Cell 7.0 4.0 - 9.5 x10(3)/[facility] Red Blood Cell 2.87(L) 4.58 - 5.54 x10(6)/[facility] Hemoglobin 7.8(L) 13.7 - 16.5 gm/dL [facility] Hematocrit 23.4(L) 40.5 - 48.5 % [facility] Mean Cell Volume 81.5(L) 82.9 - 93.1 fL [facility] Mean Cell Hemoglobin 27.2(L) 27.5 - 32.1 pg [facility] Mean Cell Hemoglobin Concentration 33.3 32.0 - 35.7 gm/dL [facility] Platelet 149 145 - 357 x10(3)/[facility] RDW Standard Deviation 44.3 36.0 - 45.0 [facility] RDW coefficient of variation 15.2(H) 11.4 - 13.8 % [facility] Mean Platelet Volume 9.8 7.6 - 12.9 fL [facility] NRBC% auto 0.3 % [facility] NRBC Absolute 0.020(H) 0.000 - 0.000 x10(3)/[facility] Blood specimen (specimen) 09/06/2017 8:33 AM EST 09/06/2017 8:39 AM EST Narrative Resulting Agency Comment Spec In Lab Juliet L Medeiros DIRECTOR [employer] HEMATOLOGY ORDERABLE S Performing Organization Address [facility]/ZIP Co de Phone Number [facility] [place] [address] * (ABNORMAL) Basic Metabolic Panel (non-fasting) (09/06/2017 4:31 AM EST) Glucose 92 65 - 199 mg/dL [facility] Comment:Diabetes: >=200 mg/d L plus symptoms Blood Urea Nitrogen 16 10 - 20 mg/dL [facility] Comment:result rechecked-IMM Creatinine 0.75(L) 0.80 - 1.50 mg/dL [facility] Sodium 144 135 - 145 mmol/L [facility] Potassium 3.6 3.5 - 5.0 mmol/L [facility] Comment: Please note: ??Patients with WBC >100,000 may have falsely elevated Potassium levels. ??For accurate Potassium quantification in these patients send serum separator tube (gold top) for subsequent determinations. ??Contact the Clinical Chemistry Laboratory if there are any questions. Chloride 109(H) 98 - 107 mmol/L [facility] Carbon Dioxide 25 22 - 31 mmol/L [facility] Anion Gap 10 5 - 15 mmol/L [facility] Calcium 7.7(L) 8.5 - 10.5 mg/dL [facility] Est Glomerular Filtration Rate >60 >=60 [facility] Comment: The reported eGFR should be multiplied by 1.2 for patients. The MDRD is not an appropriate measure of renal function for patients with body mass extremes or in patients with acute kidney failure. http://[employer]Style.Cognitics/DHnkdep http://Source4Style.com/DHMCnkf Blood specimen (specimen) 09/06/2017 4:31 AM EST 09/06/2017 5:04 AM EST Narrative Resulting Agency Comment Spec In Lab Fran Gilliam MD CHEMISTRY ORDERABL ES Performing Organization Address City/[facility]/ZIP Co de Phone Number [facility] [place] [address] * Phosphorus (09/06/2017 4:31 AM EST) Phosphorus 3.5 2.5 - 4.5 mg/dL [facility] Blood specimen (specimen) 09/06/2017 4:31 AM EST 09/06/2017 5:04 AM EST Narrative Resulting Agency Comment Spec In Lab Fran Gilliam MD CHEMISTRY ORDERABL ES Performing Organization Address [facility]/ZIP Co de Phone Number [facility] [place] [address] * (ABNORMAL) Calcium (09/06/2017 4:31 AM EST) Calcium 7.7(L) 8.5 - 10.5 mg/dL [facility] Blood specimen (specimen) 09/06/2017 4:31 AM EST 09/06/2017 5:04 AM EST Narrative Resulting Agency Comment Spec In Lab Fran Gilliam MD CHEMISTRY ORDERABL ES Performing Organization Address [facility] Co de Phone Number [facility] [place] [address] * Sodium (09/06/2017 4:31 AM EST) Sodium 144 135 - 145 mmol/L [facility] Blood specimen (specimen) 09/06/2017 4:31 AM EST 09/06/2017 5:04 AM EST Narrative Resulting Agency Comment Spec In Lab Fran Gilliam MD CHEMISTRY ORDERABL ES Performing Organization Address [facility] Co de Phone Number [facility] [place] [address] * (ABNORMAL) Albumin Level (09/06/2017 4:31 AM EST) Albumin 2.6(L) 3.2 - 5.2 gm/dL [facility] Blood specimen (specimen) 09/06/2017 4:31 AM EST 09/06/2017 5:05 AM EST Narrative Resulting Agency Comment Spec In Lab Genevieve Page MD CHEMISTRY ORDERABLES [facility] [place] [address] * (ABNORMAL) Differential, Automated (09/06/2017 4:31 AM EST) Neutrophil % 60.5 % [facility] Neutrophil Absolute 4.00 1.70 - 6.10 x10(3)/[facility] Lymph % 24.2 % [facility] Lymphocytes Abs 1.6 0.9 - 3.2 x10(3)/[facility] Monocyte % 9.5 % [facility] Monocyte Abs 0.6 0.3 - 0.9 x10(3)/[facility] Eos % 3.8 % [facility] Eosinophils Abs 0.2 0.0 - 0.4 x10(3)/[facility] Basophil % 0.5 % [facility] Baso Absolute 0.0 0.0 - 0.1 x10(3)/[facility] Immature Gran % 1.50 % [facility] Comment: Immature granulocytes(IG's)percentage and absolute count will include metamyelocytes, myelocytes, and promyelocytes. Blood smears from CBCs yielding IG's will be scanned manually for concordance. If this scan disagrees with the automated IG or if promyelocytes are noted, a manual differential will be performed. Immature Gran Absolute 0.10(H) 0.00 - 0.04 x10(3)/ L [facility] Blood specimen (specimen) 09/06/2017 4:31 AM EST 09/06/2017 5:04 AM EST Narrative Resulting Agency Comment Spec In Lab Christopher Dalal MD HEMATOLOGY ORDERABLE S [facility] [place] [address] * (ABNORMAL) Hemogram (09/06/2017 4:31 AM EST) White Blood Cell 6.6 4.0 - 9.5 x10(3)/mc L [facility] Red Blood Cell 2.72(L) 4.58 - 5.54 x10(6)/mc L [facility] Hemoglobin 7.4(L) 13.7 - 16.5 gm/dL [facility] Comment: This result has been called to [place] FORMAN by Desean Pope on 09 06 2017 at 0515, and has been read back. Hematocrit 22.2(L) 40.5 - 48.5 % [facility] Mean Cell Volume 81.6(L) 82.9 - 93.1 fL [facility] Mean Cell Hemoglobin 27.2(L) 27.5 - 32.1 pg [facility] Mean Cell Hemoglobin Concentration 33.3 32.0 - 35.7 gm/dL [facility] Platelet 153 145 - 357 x10(3)/mc L [facility] RDW Standard Deviation 43.5 36.0 - 45.0 [facility] RDW coefficient of variation 14.9(H) 11.4 - 13.8 % [facility] Mean Platelet Volume 10.3 7.6 - 12.9 [facility] NRBC% auto 0.3 % [facility] NRBC Absolute 0.020(H) 0.000 - 0.000 x10(3)/ L [facility] Blood specimen (specimen) 09/06/2017 4:31 AM EST 09/06/2017 5:04 AM EST Narrative Resulting Agency Comment Spec In Lab Christopher Dalal MD HEMATOLOGY ORDERABLE S [facility] [place] [address] * Phosphorus (09/05/2017 11:14 PM EST) Phosphorus 2.9 2.5 - 4.5 mg/dL [facility] [facility] Blood specimen (specimen) 09/05/2017 11:14 PM EST 09/05/2017 11:26 PM EST Narrative Resulting Agency Comment Spec In Lab Fran Gilliam MD CHEMISTRY ORDERABL ES Performing Organization Address City/[facility] Co de Phone Number [facility] [place] [address] * (ABNORMAL) Calcium (09/05/2017 11:14 PM EST) Calcium 7.6(L) 8.5 - 10.5 mg/dL [facility] Blood specimen (specimen) 09/05/2017 11:14 PM EST 09/05/2017 11:26 PM EST Narrative Resulting Agency Comment Spec In Lab Fran Gilliam MD CHEMISTRY ORDERABL ES Performing Organization Address [facility] Co de Phone Number [facility] [place] [address] * Sodium (09/05/2017 11:14 PM EST) Sodium 142 135 - 145 mmol/L [facility] Blood specimen (specimen) 09/05/2017 11:14 PM EST 09/05/2017 11:26 PM EST Narrative Resulting Agency Comment Spec In Lab Fran Gilliam MD CHEMISTRY ORDERABL ES Performing Organization Address [facility] Co de Phone Number [facility] [place] [address] * (ABNORMAL) Albumin Level (09/05/2017 11:14 PM EST) Albumin 2.3(L) 3.2 - 5.2 gm/dL [facility] Blood specimen (specimen) 09/05/2017 11:14 PM EST 09/05/2017 11:26 PM EST Narrative Resulting Agency Comment Spec In Lab Genevieve Page MD CHEMISTRY ORDERABLES Performing Organization Address [facility] Co de Phone Number [facility] [place] [address] * (ABNORMAL) Albumin Level (09/05/2017 7:08 PM EST) Albumin 2.4(L) 3.2 - 5.2 gm/dL [facility] Blood specimen (specimen) Venous Draw / Unknown 09/05/2017 7:08 PM EST 09/05/2017 7:18 PM EST Narrative Resulting Agency Comment Spec In Lab Genevieve Page MD CHEMISTRY ORDERABLES Performing Organization Address [facility] Co de Phone Number [facility] [place] [address] * (ABNORMAL) Phosphorus (09/05/2017 7:08 PM EST) Phosphorus 2.0(L) 2.5 - 4.5 mg/dL [facility] Comment:result rechecked- Blood specimen (specimen) 09/05/2017 7:08 PM EST 09/05/2017 7:12 PM EST Narrative Resulting Agency Comment Spec In Lab Fran Gilliam MD CHEMISTRY ORDERABL ES Performing Organization Address [facility] Co de Phone Number [facility] [place] [address] * (ABNORMAL) Calcium (09/05/2017 7:08 PM EST) Calcium 7.4(L) 8.5 - 10.5 mg/dL [facility] Blood specimen (specimen) 09/05/2017 7:08 PM EST 09/05/2017 7:12 PM EST Narrative Resulting Agency Comment Spec In Lab Fran Gilliam MD CHEMISTRY ORDERABL ES Performing Organization Address City/[facility]/ZIP Co de Phone Number [facility] [place] [address] * Sodium (09/05/2017 7:08 PM EST) Sodium 145 135 - 145 mmol/L [facility] Blood specimen (specimen) 09/05/2017 7:08 PM EST 09/05/2017 7:12 PM EST Narrative Resulting Agency Comment Spec In Lab Fran Gilliam MD CHEMISTRY ORDERABL ES Performing Organization Address [facility] Co de Phone Number [facility] [place] [address] * 1,25-dihydroxycholecalciferol (09/05/2017 4:54 PM EST) Vit D 1,25 Dihydroxy (NOVEMBER) 57 18 - 64 pg/mL [facility] Comment: ADDITIONAL INFORMATION This test was developed and its performance characteristics determined by [facility] in a manner consistent with CLIA requirements. This test has not been cleared or approved by the U.S. Food and Drug Administration. Test Performed by: [facility] [address] [place] [address] Blood specimen (specimen) 09/05/2017 4:54 PM EST 09/08/2017 2:05 PM EST Narrative Resulting Agency Comment Spec In Lab Fran Gilliam MD LAB SEND OUT ORDER LYNDSEY Performing Organization Address [facility] Co de Phone Number [facility] [place] [address] * (ABNORMAL) Electrolytes panel (09/05/2017 3:06 PM EST) Sodium 146(H) 135 - 145 mmol/L [facility] Potassium 3.9 3.5 - 5.0 mmol/L [facility] Comment: Please note: ??Patients with WBC >100,000 may have falsely elevated Potassium levels. ??For accurate Potassium quantification in these patients send serum separator tube (gold top) for subsequent determinations. ??Contact the Clinical Chemistry Laboratory if there are any questions. Chloride 114(H) 98 - 107 mmol/L [facility] Carbon Dioxide 24 22 - 31 mmol/L [facility] Anion Gap 8 5 - 15 mmol/L [facility] Blood specimen (specimen) 09/05/2017 3:06 PM EST 09/05/2017 3:16 PM EST Narrative Resulting Agency Comment Spec In Lab Fran Gilliam MD CHEMISTRY ORDERABL ES Performing Organization Address [facility] Co de Phone Number [facility] [place] [address] * PTH (09/05/2017 11:29 AM EST) Parathyroid Hormone 29 15 - 65 pg/mL [facility] Blood specimen (specimen) 09/05/2017 11:29 AM EST 09/05/2017 11:48 AM EST Narrative Resulting Agency Comment Spec In Lab Fran Gilliam MD CHEMISTRY ORDERABL ES Performing Organization Address [facility] de Phone Number [facility] [place] [address] * Vitamin D, 25-Hydroxy (09/05/2017 11:29 AM EST) Vitamin D Total 25 OH 34 30 - 100 ng/mL [facility] Comment: Deficient <10 ng/mL Insufficient 10 to 29 ng/mL Sufficient 30 to 100 ng/mL Potential Intoxication >100 ng/mL According to the [place] National Osteoporosis Foundation, Vitamin D concentrations >30 ng/mL are sufficient to protect bone health. ??The National Kidney Foundation has similarly stated that patients with Vitamin D concentrations <30ng/mL should be considered to be insufficient or deficient. http://tinyurl.Cognitics/nkf-guidelines http://Source4Style.Cognitics/nejm-VitD The [employer] i[employer] Vitamin D Immunoassay detects both 25-OH Vitamin D2 and 25-OH Vitamin D3, but only a total Vitamin D concentration is reported. Blood specimen (specimen) 09/05/2017 11:29 AM EST 09/05/2017 1:31 PM EST Narrative Resulting Agency Comment Spec In Lab Fran Gilliam MD CHEMISTRY ORDERABL ES Performing Organization Address [facility]/ZIP Co de Phone Number [facility] [place] [address] * (ABNORMAL) Electrolytes panel (09/05/2017 11:29 AM EST) Sodium 148(H) 135 - 145 mmol/L [facility] Potassium 4.1 3.5 - 5.0 mmol/L [facility] Comment: Please note: ??Patients with WBC >100,000 may have falsely elevated Potassium levels. ??For accurate Potassium quantification in these patients send serum separator tube (gold top) for subsequent determinations. ??Contact the Clinical Chemistry Laboratory if there are any questions. Chloride 113(H) 98 - 107 mmol/L [facility] Carbon Dioxide 24 22 - 31 mmol/L [facility] Anion Gap 11 5 - 15 mmol/L [facility] Blood specimen (specimen) 09/05/2017 11:29 AM EST 09/05/2017 11:48 AM EST Narrative Resulting Agency Comment Spec In Lab Juliet Medeiros APRN CHEMISTRY ORDERABLES Performing Organization Address [facility]/ZIP Co de Phone Number [facility] [place] [address] * (ABNORMAL) Phosphorus (09/05/2017 4:16 AM EST) Phosphorus 1.1(Critic al) 2.5 - 4.5 mg/dL [facility] Comment:Called by: IMM, Read back by: ADRIANE FINLEY, Date/Time:09/05/17 05:43. Blood specimen (specimen) 09/05/2017 4:16 AM EST 09/05/2017 4:52 AM EST Narrative Resulting Agency Comment Spec In Lab Juliet Medeiros APRN CHEMISTRY ORDERABLES [facility] [place] [address] * (ABNORMAL) Differential, Automated (09/05/2017 2:35 AM EST) Neutrophil % 84.1 % [facility] Neutrophil Absolute 7.20(H) 1.70 - 6.10 x10(3)/mc L [facility] Lymph % 5.0 % [facility] Lymphocytes Abs 0.4(L) 0.9 - 3.2 x10(3)/ L [facility] Monocyte % 9.4 % [facility] Monocyte Abs 0.8 0.3 - 0.9 x10(3)/mc L [facility] Eos % 0.3 % [facility] Eosinophils Abs 0.0 0.0 - 0.4 x10(3)/ L [facility] Basophil % 0.2 % [facility] Baso Absolute 0.0 0.0 - 0.1 x10(3)/ L [facility] Immature Gran % 1.00 % [facility] Comment: Immature granulocytes(IG's)percentage and absolute count will include metamyelocytes, myelocytes, and promyelocytes. Blood smears from CBCs yielding IG's will be scanned manually for concordance. If this scan disagrees with the automated IG or if promyelocytes are noted, a manual differential will be performed. Immature Gran Absolute 0.09(H) 0.00 - 0.04 x10(3)/mc L [facility] Blood specimen (specimen) 09/05/2017 2:35 AM EST 09/05/2017 2:42 AM EST Narrative Resulting Agency Comment Spec In Lab Christopher Dalal MD HEMATOLOGY ORDERABLE S [facility] [place] [address] * (ABNORMAL) Hemogram (09/05/2017 2:35 AM EST) White Blood Cell 8.6 4.0 - 9.5 x10(3)/mc L [facility] Red Blood Cell 3.98(L) 4.58 - 5.54 x10(6)/mc L [facility] Hemoglobin 10.9(L) 13.7 - 16.5 gm/dL [facility] Hematocrit 31.5(L) 40.5 - 48.5 % [facility] Mean Cell Volume 79.1(L) 82.9 - 93.1 fL [facility] Mean Cell Hemoglobin 27.4(L) 27.5 - 32.1 pg [facility] Mean Cell Hemoglobin Concentration 34.6 32.0 - 35.7 gm/dL [facility] Platelet 169 145 - 357 x10(3)/mc L [facility] RDW Standard Deviation 41.2 36.0 - 45.0 [facility] RDW coefficient of variation 14.2(H) 11.4 - 13.8 % [facility] Mean Platelet Volume 10.0 7.6 - 12.9 [facility] NRBC% auto 0.0 % [facility] NRBC Absolute 0.000 0.000 - 0.000 x10(3)/mc L [facility] Blood specimen (specimen) 09/05/2017 2:35 AM EST 09/05/2017 2:42 AM EST Narrative Resulting Agency Comment Spec In Lab Christopher Dalal MD HEMATOLOGY ORDERABLE S [facility] [place] [address] * (ABNORMAL) Basic Metabolic Panel (non-fasting) (09/05/2017 2:35 AM EST) Glucose 203(H) 65 - 199 mg/dL [facility] Comment:Diabetes: >=200 mg/d L plus symptoms Blood Urea Nitrogen 8(L) 10 - 20 mg/dL [facility] Creatinine 0.85 0.80 - 1.50 mg/dL [facility] Sodium 148(H) 135 - 145 mmol/L [facility] Comment:result rechecked-imm Potassium 4.1 3.5 - 5.0 mmol/L [facility] Comment: Please note: ??Patients with WBC >100,000 may have falsely elevated Potassium levels. ??For accurate Potassium quantification in these patients send serum separator tube (gold top) for subsequent determinations. ??Contact the Clinical Chemistry Laboratory if there are any questions. Chloride 112(H) 98 - 107 mmol/L [facility] Comment:result rechecked-imm Carbon Dioxide 23 22 - 31 mmol/L [facility] Anion Gap 13 5 - 15 mmol/L [facility] Calcium 7.8(L) 8.5 - 10.5 mg/dL [facility] Est Glomerular Filtration Rate >60 >=60 [facility] Comment: The reported eGFR should be multiplied by 1.2 for patients. The MDRD is not an appropriate measure of renal function for patients with body mass extremes or in patients with acute kidney failure. http://Source4Style.Cognitics/DHnkdep http://Source4Style.Cognitics/DHMCnkf Blood specimen (specimen) 09/05/2017 2:35 AM EST 09/05/2017 2:42 AM EST Narrative Resulting Agency Comment Spec In Lab Fran Gilliam MD CHEMISTRY ORDERABL ES [facility] [place] [address] * Magnesium (09/05/2017 2:35 AM EST) Magnesium 0.80 0.69 - 1.07 mmol/L [facility] Blood specimen (specimen) 09/05/2017 2:35 AM EST 09/05/2017 2:42 AM EST Narrative Resulting Agency Comment Spec In Lab Juliet Medeiros DIRECTOR [employer] CHEMISTRY ORDERABLES Performing Organization Address [facility] Co de Phone Number [facility] [place] [address] * EKG 12 Lead (09/04/2017 10:30 PM EST) Ventricular rate 143 BPM MUSE SYSTEM Atrial Rate 143 BPM MUSE SYSTEM P-R Interval 130 ms MUSE SYSTEM QRS Duration 78 ms MUSE SYSTEM Q-T Interval 278 ms MUSE SYSTEM QTC Calculated (Bezet) 429 ms MUSE SYSTEM Calculated P Deeth 34 degrees MUSE SYSTEM Calculated R Deeth 48 degrees MUSE SYSTEM Calculated T Deeth 45 degrees MUSE SYSTEM INTERPRETATION Sinus tachycardia Nonspecific ST abnormality Abnormal ECG No previous ECGs available Confirmed by MD Scottie, Sally ([id number]) on 09/05/2017 3:49:31 PM MUSE SYSTEM 09/04/2017 10:3 0 PM EST 09/05/2017 3:49 PM EST Juliet Medeiros MAX ECG ORDERABLES Performing Organization Address [facility] de Phone Number MUSE SYSTEM * (ABNORMAL) Electrolytes panel (09/04/2017 7:23 PM EST) Sodium 137 135 - 145 mmol/L [facility] Potassium 5.1(H) 3.5 - 5.0 mmol/L [facility] Comment: Please note: ??Patients with WBC >100,000 may have falsely elevated Potassium levels. ??For accurate Potassium quantification in these patients send serum separator tube (gold top) for subsequent determinations. ??Contact the Clinical Chemistry Laboratory if there are any questions. Chloride 102 98 - 107 mmol/L [facility] Carbon Dioxide 23 22 - 31 mmol/L [facility] Anion Gap 12 5 - 15 mmol/L [facility] Blood specimen (specimen) 09/04/2017 7:23 PM EST 09/04/2017 7:27 PM EST Narrative Resulting Agency Comment Spec In Lab Fran Gilliam MD CHEMISTRY ORDERABL ES Performing Organization Address [facility]/[place] [address] * POCT Glucose (09/04/2017 7:00 PM EST) [facility] Glucose, POC 132 65 - 199 mg/dL [facility] Comment: Supplemental ranges: <140 mg/dL before meals <180 mg/dL all other times of the day Blood specimen (specimen) 09/04/2017 7:00 PM EST 09/04/2017 7:00 PM EST Fran Gilliam MD POINT OF CARE TEST ORDERABLES Performing Organization Address City/[facility]/ZIP Co de Phone Number [facility] [place] [address] * (ABNORMAL) Differential, Automated (09/04/2017 3:49 PM EST) [facility] Neutrophil % 86.3 % [facility] Neutrophil Absolute 7.08(H) 1.70 - 6.10 x10(3)/mc L [facility] Lymph % 5.2 % [facility] Lymphocytes Abs 0.4(L) 0.9 - 3.2 x10(3)/mc L [facility] Monocyte % 6.2 % [facility] Monocyte Abs 0.5 0.3 - 0.9 x10(3)/mc L [facility] Eos % 1.2 % [facility] Eosinophils Abs 0.1 0.0 - 0.4 x10(3)/mc L [facility] Basophil % 0.1 % [facility] Baso Absolute 0.0 0.0 - 0.1 x10(3)/ L [facility] Immature Gran % 1.00 % [facility] Comment: Immature granulocytes(IG's)percentage and absolute count will include metamyelocytes, myelocytes, and promyelocytes. Blood smears from CBCs yielding IG's will be scanned manually for concordance. If this scan disagrees with the automated IG or if promyelocytes are noted, a manual differential will be performed. Immature Gran Absolute 0.08(H) 0.00 - 0.04 x10(3)/[facility] LAB[facility] Blood specimen (specimen) 09/04/2017 3:49 PM EST 09/04/2017 3:59 PM EST Narrative Resulting Agency Comment Spec In Lab Dario Chavez MD HEMATOLOGY ORDERABLE S Performing Organization Address City/State/[facility] Co de Phone Number [facility] [place] [address] * (ABNORMAL) Hemogram (09/04/2017 3:49 PM EST) White Blood Cell 8.2 4.0 - 9.5 x10(3)/[facility] LAB[facility] Red Blood Cell 4.05(L) 4.58 - 5.54 x10(6)/ L [facility] Hemoglobin 11.1(L) 13.7 - 16.5 gm/dL [facility] Hematocrit 33.0(L) 40.5 - 48.5 % [facility] Mean Cell Volume 81.5(L) 82.9 - 93.1 fL [facility] Mean Cell Hemoglobin 27.4(L) 27.5 - 32.1 pg [facility] Mean Cell Hemoglobin Concentration 33.6 32.0 - 35.7 gm/dL [facility] Platelet 118(L) 145 - 357 x10(3)/[facility] LABORATORY RDW Standard Deviation 41.2 36.0 - 45.0 fL [facility] RDW coefficient of variation 14.0(H) 11.4 - 13.8 % [facility] Mean Platelet Volume 9.9 7.6 - 12.9 fL [facility] NRBC% auto 0.0 % [facility] NRBC Absolute 0.000 0.000 - 0.000 x10(3)/mc L [facility] Blood specimen (specimen) 09/04/2017 3:49 PM EST 09/04/2017 3:59 PM EST Narrative Resulting Agency Comment Spec In Lab Dario Chavez MD HEMATOLOGY ORDERABLE S Performing Organization Address [facility] Co de Phone Number [facility] [place] [address] * (ABNORMAL) Electrolytes panel (09/04/2017 3:49 PM EST) Sodium 129(L) 135 - 145 mmol/L [facility] Potassium 4.4 3.5 - 5.0 mmol/L [facility] Comment: Please note: ??Patients with WBC >100,000 may have falsely elevated Potassium levels. ??For accurate Potassium quantification in these patients send serum separator tube (gold top) for subsequent determinations. ??Contact the Clinical Chemistry Laboratory if there are any questions. Chloride 97(L) 98 - 107 mmol/L [facility] Carbon Dioxide 22 22 - 31 mmol/L [facility] Anion Gap 10 5 - 15 mmol/L [facility] Blood specimen (specimen) 09/04/2017 3:49 PM EST 09/04/2017 3:59 PM EST Narrative Resulting Agency Comment Spec In Lab Fran Gilliam MD CHEMISTRY ORDERABL ES Performing Organization Address [facility] Co de Phone Number [facility] [place] [address] * (ABNORMAL) Hemoglobin and Hematocrit, blood (09/04/2017 3:49 PM EST) Hemoglobin 11.0(L) 13.7 - 16.5 gm/dL [facility] Hematocrit 33.3(L) 40.5 - 48.5 % [facility] Blood specimen (specimen) 09/04/2017 3:49 PM EST 09/04/2017 3:59 PM EST Narrative Resulting Agency Comment Spec In Lab Fran Gilliam MD HEMATOLOGY ORDERAB LES Performing Organization Address City/State/[facility] Co de Phone Number [facility] [place] [address] * XR Pelvis Judet or In Out [...] left ischial and acetabular fracture with multiple szeuy-aym-[id number] constructs. Tubing that could represent a surgical [...] described left ischial and acetabular fracture with obhpnyofebopt-[id number]-nufuv constructs. Tubing that could represent a surgical drain is seen with itstip projecting over the left iliac region. Additional tubing is faintly seen projecting over the midline pelvis. Fracture alignment is improved andappears near-anatomic. The sacrum is largely obscured by overlying bowel gas andstool. IMPRESSION Improved alignment after left ischial and acetabular fracture ORIFwithout evidence of complication. Fran Gilliam MD IMG DX ORDERABLES * XR Fluoro No Rad <1Hr - OR Use (09/04/2017 12:27 PM EST) Narrative RAD - 09/04/2017 12:27 PM EST This order does not need a radiologist interpretation. ?? Fran Gilliam MD IMG FLUORO ORDERAB LES Performing Organization Address City/[facility] Co de Phone Number [place], [place] * ABORH Recheck Status (09/04/2017 11:15 AM EST) ABORH Type Recheck Completed [facility] Blood specimen (specimen) 09/04/2017 11:15 AM EST 09/04/2017 11:28 AM EST Narrative Resulting Agency Comment Spec In Lab Amy Lance MD BLOOD BANK LAB ORDER LYNDSEY Performing Organization Address [facility] Co de Phone Number [facility] [place] [address] * Antibody screen (09/04/2017 11:15 AM EST) Ab Screen Interp Negative [facility] Expires at [id number] on: 09/07/2017 [facility] Blood specimen (specimen) 09/04/2017 11:15 AM EST 09/04/2017 11:28 AM EST Narrative Resulting Agency Comment Spec In Lab Amy Lance MD BLOOD BANK LAB ORDER LYNDSEY [facility] [place] [address] * ABO/Rh Typing (09/04/2017 11:15 AM EST) ABORH Type O Pos [facility] Blood specimen (specimen) 09/04/2017 11:15 AM EST 09/04/2017 11:28 AM EST Narrative Resulting Agency Comment Spec In Lab Amy Lance MD BLOOD BANK LAB ORDER LYNDSEY [facility] [place] [address] * (ABNORMAL) Differential, Automated (09/04/2017 11:15 AM EST) Neutrophil % 72.7 % [facility] Neutrophil Absolute 10.24(H) 1.70 - 6.10 x10(3)/mc L [facility] Lymph % 11.3 % [facility] Lymphocytes Abs 1.6 0.9 - 3.2 x10(3)/mc L [facility] Monocyte % 7.5 % [facility] Monocyte Abs 1.1(H) 0.3 - 0.9 x10(3)/mc L [facility] Eos % 7.5 % [facility] Eosinophils Abs 1.1(H) 0.0 - 0.4 x10(3)/mc L [facility] Basophil % 0.3 % [facility] Baso Absolute 0.0 0.0 - 0.1 x10(3)/mc L [facility] Immature Gran % 0.70 % [facility] Comment: Immature granulocytes(IG's)percentage and absolute count will include metamyelocytes, myelocytes, and promyelocytes. Blood smears from CBCs yielding IG's will be scanned manually for concordance. If this scan disagrees with the automated IG or if promyelocytes are noted, a manual differential will be performed. Immature Gran Absolute 0.10(H) 0.00 - 0.04 x10(3)/ L [facility] Blood specimen (specimen) 09/04/2017 11:15 AM EST 09/04/2017 11:28 AM EST Narrative Resulting Agency Comment Spec In Lab Amy Lance MD HEMATOLOGY ORDERABLE S [facility] [place] [address] * (ABNORMAL) Hemogram (09/04/2017 11:15 AM EST) White Blood Cell 14.1(H) 4.0 - 9.5 x10(3)/[facility] Red Blood Cell 3.37(L) 4.58 - 5.54 x10(6)/[facility] Hemoglobin 9.3(L) 13.7 - 16.5 gm/dL [facility] Comment: This result has been called to SHEKHAR OLIVEIRA by Crista Hunter on 09 04 2017 at 1137, and has been read back. Hematocrit 26.7(L) 40.5 - 48.5 % [facility] Comment: This result has been called to SHEKHAR OLIVEIRA by Crista Hunter on 09 04 2017 at 1137, and has been read back. Mean Cell Volume 79.2(L) 82.9 - 93.1 fL [facility] Mean Cell Hemoglobin 27.6 27.5 - 32.1 pg [facility] Mean Cell Hemoglobin Concentration 34.8 32.0 - 35.7 gm/dL [facility] Platelet 193 145 - 357 x10(3)/ L [facility] RDW Standard Deviation 41.5 36.0 - 45.0 [facility] RDW coefficient of variation 14.3(H) 11.4 - 13.8 % [facility] Mean Platelet Volume 10.0 7.6 - 12.9 [facility] NRBC% auto 0.0 % [facility] NRBC Absolute 0.000 0.000 - 0.000 x10(3)/mc L [facility] Blood specimen (specimen) 09/04/2017 11:15 AM EST 09/04/2017 11:28 AM EST Narrative Resulting Agency Comment Spec In Lab Amy Lance MD HEMATOLOGY ORDERABLE S Performing Organization Address [facility] Co de Phone Number [facility] [place] [address] * Prepare RBC (09/04/2017 11:00 AM EST) Dispensed? Yes [facility] Blood specimen (specimen) 09/04/2017 11:00 AM EST 09/04/2017 10:58 AM EST Fran Gilliam MD BLOOD BANK PRODUCT ORDERABLES Performing Organization Address [facility] Co de Phone Number [facility] [place] [address] * (ABNORMAL) Differential, Automated (09/04/2017 3:58 AM EST) Neutrophil % 75.8 % [facility] Neutrophil Absolute 8.00(H) 1.70 - 6.10 x10(3)/mc L [facility] Lymph % 9.5 % [facility] Lymphocytes Abs 1.0 0.9 - 3.2 x10(3)/mc L [facility] Monocyte % 7.7 % [facility] Monocyte Abs 0.8 0.3 - 0.9 x10(3)/mc L [facility] Eos % 5.9 % [facility] Eosinophils Abs 0.6(H) 0.0 - 0.4 x10(3)/mc L [facility] Basophil % 0.4 % [facility] Baso Absolute 0.0 0.0 - 0.1 x10(3)/ L [facility] Immature Gran % 0.70 % [facility] Comment: Immature granulocytes(IG's)percentage and absolute count will include metamyelocytes, myelocytes, and promyelocytes. Blood smears from CBCs yielding IG's will be scanned manually for concordance. If this scan disagrees with the automated IG or if promyelocytes are noted, a manual differential will be performed. Immature Gran Absolute 0.07(H) 0.00 - 0.04 x10(3)/ L [facility] Blood specimen (specimen) 09/04/2017 3:58 AM EST 09/04/2017 4:05 AM EST Narrative Resulting Agency Comment Spec In Lab Christopher Dalal MD HEMATOLOGY ORDERABLE S Performing Organization Address City/State/[facility] Co de Phone Number [facility] [place] [address] * (ABNORMAL) Hemogram (09/04/2017 3:58 AM EST) White Blood Cell 10.5(H) 4.0 - 9.5 x10(3)/[facility] Red Blood Cell 4.72 4.58 - 5.54 x10(6)/ L [facility] Hemoglobin 12.4(L) 13.7 - 16.5 gm/dL [facility] Hematocrit 37.2(L) 40.5 - 48.5 % [facility] Mean Cell Volume 78.8(L) 82.9 - 93.1 fL [facility] Mean Cell Hemoglobin 26.3(L) 27.5 - 32.1 pg [facility] Mean Cell Hemoglobin Concentration 33.3 32.0 - 35.7 gm/dL [facility] Platelet 142(L) 145 - 357 x10(3)/[facility] RDW Standard Deviation 39.5 36.0 - 45.0 fL [facility] RDW coefficient of variation 13.8 11.4 - 13.8 % [facility] Mean Platelet Volume 9.9 7.6 - 12.9 fL [facility] NRBC% auto 0.0 % [facility] NRBC Absolute 0.000 0.000 - 0.000 x10(3)/mc L [facility] Blood specimen (specimen) 09/04/2017 3:58 AM EST 09/04/2017 4:05 AM EST Narrative Resulting Agency Comment Spec In Lab Christopher Dalal MD HEMATOLOGY ORDERABLE S [facility] [place] [address] * (ABNORMAL) Basic Metabolic Panel (non-fasting) (09/04/2017 3:58 AM EST) Glucose 118 65 - 199 mg/dL [facility] Comment:Diabetes: >=200 mg/d L plus symptoms Blood Urea Nitrogen 12 10 - 20 mg/dL [facility] Creatinine 0.73(L) 0.80 - 1.50 mg/dL [facility] Sodium 128(L) 135 - 145 mmol/L [facility] Potassium 4.1 3.5 - 5.0 mmol/L [facility] Comment: Please note: ??Patients with WBC >100,000 may have falsely elevated Potassium levels. ??For accurate Potassium quantification in these patients send serum separator tube (gold top) for subsequent determinations. ??Contact the Clinical Chemistry Laboratory if there are any questions. Chloride 95(L) 98 - 107 mmol/L [facility] Carbon Dioxide 22 22 - 31 mmol/L [facility] Anion Gap 11 5 - 15 mmol/L [facility] Calcium 8.0(L) 8.5 - 10.5 mg/dL [facility] Est Glomerular Filtration Rate >60 >=60 [facility] Comment: The reported eGFR should be multiplied by 1.2 for patients. The MDRD is not an appropriate measure of renal function for patients with body mass extremes or in patients with acute kidney failure. http://Source4Style.Cognitics/DHnkdep http://Source4Style.Cognitics/DHMCnkf Blood specimen (specimen) 09/04/2017 3:58 AM EST 09/04/2017 4:05 AM EST Narrative Resulting Agency Comment Spec In Lab Fran Gilliam MD CHEMISTRY ORDERABL ES Performing Organization Address [facility] Co de Phone Number [facility] [place] [address] * (ABNORMAL) Hepatic Function Panel (09/04/2017 3:58 AM EST) [facility] Protein, Total 5.9(L) 6.1 - 8.0 gm/dL [facility] Albumin 3.3 3.2 - 5.2 gm/dL [facility] Aspartate Aminotransferase 23 0 - 39 unit/L [facility] Alanine Aminotransferase 31 0 - 55 unit/L [facility] Alkaline Phosphatase 75 40 - 120 unit/L [facility] Bilirubin, Total 0.5 0.2 - 1.3 mg/dL [facility] Bilirubin, Direct 0.1 0.0 - 0.3 mg/dL [facility] Blood specimen (specimen) 09/04/2017 3:58 AM EST 09/04/2017 4:05 AM EST Narrative Resulting Agency Comment Spec In Lab Fran Gilliam MD CHEMISTRY ORDERABL ES Performing Organization Address [facility] Co de Phone Number [facility] [place] [address] * (ABNORMAL) Testosterone, total and free (09/04/2017 3:58 AM EST) Pathologist [facility] Testo Total 84(L) 250 - 1100 ng/dL [facility] Comment: For more information on this test, go to http://education.Innov [employer] Systems.Cognitics/faq/ TotalTestosteroneLCMSMS This test was developed and its analytical performance characteristics have been determined by [place]. It has not been cleared or approved by the U.S. Food and Drug Administration. This assay has been validated pursuant to the CLIA regulations and is used for clinical purposes. Testo Free (NOVEMBER) 11.4(L) 35.0 - 155.0 pg/mL [facility] Comment: This test was developed and its analytical performance characteristics have been determined by [employer] [place], [place]. It has not been cleared or approved by the U.S. Food and Drug Administration. This assay has been validated pursuant to the CLIA regulations and is used for clinical purposes. Test Performed by [facility], [employer] [facility], [address] [place] [address] Hilton Mckeon M.D., Ph.D., Director of Laboratories , CLIA [id number] Blood specimen (specimen) 09/04/2017 3:58 AM EST 09/04/2017 9:36 AM EST Narrative Resulting Agency Comment Spec In Lab Christopher Dalal MD LAB SEND OUT ORDERAB LES [facility] [place] [address] * SCAN DOC: IMPLANTABLE DEVICES (09/04/2017 12:00 AM EST) Narrative 09/04/2017 12:00 AM EST Ordered by an unspecified provider. Scanning Provider MEDIA MGR SCAN EXT O RDR/RSLT * SCAN DOC: SAP BASIS ARCHITECT (09/04/2017 12:00 AM EST) Anatomical Region Laterality Modality Other Narrative 09/04/2017 12:00 AM EST Ordered by an unspecified provider. Scanning Provider MEDIA MGR SCAN EXT O RDR/RSLT * (ABNORMAL) Urinalysis with reflex Culture (09/03/2017 9:04 PM EST) Glucose, Urine Dipstick Negative Negative mg/dL [facility] Protein, Urine Dipstick Negative Negative mg/dL [facility] Bilirubin, Urine Dipstick Negative Negative mg/dL [facility] Comment: Clinical correlation required for positive Urine Bilirubin results as false positive may occur with some drugs and drug related products. If a false positive is suspected a serum total bilirubin should be considered if clinically indicated. Urobilinogen, Urine Dipstick >=4.0(A) Normal mg/dL [facility] pH, Urn (dipstick) 7.0 5.0 - 8.0 [facility] Blood, Urine Dipstick Negative Negative mg/dL [facility] Ketone, Urine Dipstick Negative Negative mg/dL [facility] Nitrite, Urine Dipstick Negative Negative [facility] Leukocytes, Urine Dipstick Negative Negative [facility] Appearance, Urine Dipstick Clear Clear [facility] Specific [place] Urine Automated 1.020 1.002 - 1.030 [facility] Color, Urine Dipstick Yellow Yellow [facility] Reflex to Culture No [facility] Urine specimen obtained via indwelling urinary catheter (specimen) 09/03/2017 9:04 PM EST 09/03/2017 9:19 PM EST Narrative Resulting Agency Comment Spec In Lab Fran Gilliam MD URINE ORDERABLES Performing Organization Address City/State/[facility] Co de Phone Number [facility] [place] [address] * Rapid Influenza A/B PCR (09/03/2017 7:59 PM EST) Influenza A PCR Not Detected Not Detected [facility] Influenza B PCR Not Detected Not Detected [facility] Resp PCR Source LOOM OPERATOR Swab [facility] Nasopharyngeal swab (specimen) 09/03/2017 7:59 PM EST 09/03/2017 8:12 PM EST Narrative Resulting Agency Comment Spec In Lab Fran Gilliam MD MICROBIOLOGY - GEN ERAL ORDERABLES Performing Organization Address [facility]/ZIP Co de Phone Number [facility] [place] [address] * Blood culture (09/03/2017 6:47 PM EST) Blood Culture No growth at 5 days. [facility] Blood specimen (specimen) 09/03/2017 6:47 PM EST 09/03/2017 7:08 PM EST Comment:R HAND Narrative Resulting Agency Comment Spec In Lab Fran Gilliam MD MICROBIOLOGY - BLO OD ORDERABLES Performing Organization Address [facility] Co de Phone Number [facility] [place] [address] * (ABNORMAL) Lactate, whole blood, send to lab (Leb/CGP) (09/03/2017 5:56 PM EST) Lactate WB 3.7(H) 0.5 - 2.2 mmol/L [facility] Blood specimen (specimen) 09/03/2017 5:56 PM EST 09/03/2017 6:03 PM EST Narrative Resulting Agency Comment Spec In Lab Fran Gilliam MD CHEMISTRY ORDERABL ES Performing Organization Address [facility] Co de Phone Number [facility] [place] [address] * Blood culture (09/03/2017 5:56 PM EST) Blood Culture No growth at 5 days. [facility] Blood specimen (specimen) 09/03/2017 5:56 PM EST 09/03/2017 6:28 PM EST Narrative Resulting Agency Comment Spec In Lab Fran Gilliam MD MICROBIOLOGY - BLO OD ORDERABLES Performing Organization Address [facility]/ZIP Co de Phone Number [facility] [place] [address] * CT Pelvis MSK (Bones Joints Muscles)WO [...] at 09/03/2017 5:51 PM Fran Gilliam MD [facility] ORDERABLES * (ABNORMAL) Zonisamide level (09/03/2017 10:20 AM EST) Zonisamide Lvl (NOVEMBER) 3.7(L) 10 - 40 mcg/mL [facility] Comment: ADDITIONAL INFORMATION This test was developed and its performance characteristics determined by [facility] in a manner consistent with CLIA requirements. This test has not been cleared or approved by the U.S. Food and Drug Administration. Test Performed by: [facility] [address] [place] [address] Blood specimen (specimen) 09/03/2017 10:20 AM EST 09/03/2017 12:26 PM EST Narrative Resulting Agency Comment Spec In Lab Fran Gilliam MD LAB SEND OUT ORDER LYNDSEY [facility] [place] [address] * XR Chest PA or AP 1 [...] Free T4 1.45 0.93 - 1.70 ng/dL [facility] Blood specimen (specimen) Venous Draw / Unknown 09/03/2017 6:22 AM EST 09/03/2017 6:35 AM EST Narrative Resulting Agency Comment Spec In Lab Fran Gilliam MD CHEMISTRY ORDERABL ES Performing Organization Address [facility] Co de Phone Number [facility] [place] [address] * (ABNORMAL) TSH (09/03/2017 6:22 AM EST) Thyroid Stimulating Hormone 0.01(L) 0.27 - 4.20 mlU/ML [facility] Blood specimen (specimen) Venous Draw / Unknown 09/03/2017 6:22 AM EST 09/03/2017 6:35 AM EST Narrative Resulting Agency Comment Spec In Lab Fran Gilliam MD CHEMISTRY ORDERABL ES Performing Organization Address City/[facility]/ZIP Co de Phone Number [facility] [place] [address] * Basic Metabolic Panel (non-fasting) (09/03/2017 6:22 AM EST) Glucose 95 65 - 199 mg/dL [facility] Comment:Diabetes: >=200 mg/d L plus symptoms Blood Urea Nitrogen 10 10 - 20 mg/dL [facility] Creatinine 0.99 0.80 - 1.50 mg/dL [facility] Sodium 136 135 - 145 mmol/L [facility] Potassium 4.2 3.5 - 5.0 mmol/L [facility] Comment: Please note: ??Patients with WBC >100,000 may have falsely elevated Potassium levels. ??For accurate Potassium quantification in these patients send serum separator tube (gold top) for subsequent determinations. ??Contact the Clinical Chemistry Laboratory if there are any questions. Chloride 99 98 - 107 mmol/L [facility] Carbon Dioxide 26 22 - 31 mmol/L [facility] Anion Gap 11 5 - 15 mmol/L [facility] Calcium 8.8 8.5 - 10.5 mg/dL [facility] Est Glomerular Filtration Rate >60 >=60 [facility] Comment: The reported eGFR should be multiplied by 1.2 for patients. The MDRD is not an appropriate measure of renal function for patients with body mass extremes or in patients with acute kidney failure. http://bigtincan/DHnkdep http://bigtincan/DHMCnkf Blood specimen (specimen) 09/03/2017 6:22 AM EST 09/03/2017 6:29 AM EST Narrative Resulting Agency Comment Spec In Lab Christopher Dalal MD CHEMISTRY ORDERABLES Performing Organization Address City/State/[facility] Co de Phone Number [facility] [place] [address] * (ABNORMAL) Basic Metabolic Panel (non-fasting) (09/03/2017 1:54 AM EST) Glucose 90 65 - 199 mg/dL [facility] Comment:Diabetes: >=200 mg/d L plus symptoms Blood Urea Nitrogen 10 10 - 20 mg/dL [facility] Creatinine 1.01 0.80 - 1.50 mg/dL [facility] Sodium 139 135 - 145 mmol/L [facility] Potassium 3.7 3.5 - 5.0 mmol/L [facility] Comment: Please note: ??Patients with WBC >100,000 may have falsely elevated Potassium levels. ??For accurate Potassium quantification in these patients send serum separator tube (gold top) for subsequent determinations. ??Contact the Clinical Chemistry Laboratory if there are any questions. Chloride 102 98 - 107 mmol/L [facility] Carbon Dioxide 25 22 - 31 mmol/L [facility] Anion Gap 12 5 - 15 mmol/L [facility] Calcium 8.1(L) 8.5 - 10.5 mg/dL [facility] Est Glomerular Filtration Rate >60 >=60 [facility] Comment: The reported eGFR should be multiplied by 1.2 for patients. The MDRD is not an appropriate measure of renal function for patients with body mass extremes or in patients with acute kidney failure. http://bigtincan/DHnkdep http://bigtincan/DHMCnkf Blood specimen (specimen) 09/03/2017 1:54 AM EST 09/03/2017 2:02 AM EST Narrative Resulting Agency Comment Spec In Lab Christopher Dalal MD CHEMISTRY ORDERABLES Performing Organization Address City/[facility]/ZIP Co de Phone Number [facility] [place] [address] * ABORH Recheck Status (09/03/2017 12:54 AM EST) ABORH Recheck Order Order Placed [facility] ABORH Type Recheck Complete [facility] Blood specimen (specimen) 09/03/2017 12:54 AM EST 09/03/2017 12:54 AM EST Narrative Resulting Agency Comment Spec In Lab Christopher Dalal MD BLOOD BANK LAB ORDER LYNDSEY [facility] [place] [address] * (ABNORMAL) Differential, Automated (09/03/2017 12:54 AM EST) Neutrophil % 72.4 % [facility] Neutrophil Absolute 6.59(H) 1.70 - 6.10 x10(3)/mc L [facility] Lymph % 11.7 % [facility] Lymphocytes Abs 1.1 0.9 - 3.2 x10(3)/ L [facility] Monocyte % 8.9 % [facility] Monocyte Abs 0.8 0.3 - 0.9 x10(3)/[facility] Eos % 5.3 % [facility] Eosinophils Abs 0.5(H) 0.0 - 0.4 x10(3)/[facility] Basophil % 0.6 % [facility] Baso Absolute 0.0 0.0 - 0.1 x10(3)/[facility] Immature Gran % 1.10 % [facility] Comment: Immature granulocytes(IG's)percentage and absolute count will include metamyelocytes, myelocytes, and promyelocytes. Blood smears from CBCs yielding IG's will be scanned manually for concordance. If this scan disagrees with the automated IG or if promyelocytes are noted, a manual differential will be performed. Immature Gran Absolute 0.10(H) 0.00 - 0.04 x10(3)/[facility] Blood specimen (specimen) 09/03/2017 12:54 AM EST 09/03/2017 12:58 AM EST Narrative Resulting Agency Comment Spec In Lab Christopher Dalal MD HEMATOLOGY ORDERABLE S [facility] [place] [address] * (ABNORMAL) Hemogram (09/03/2017 12:54 AM EST) White Blood Cell 9.1 4.0 - 9.5 x10(3)/[facility] Red Blood Cell 5.52 4.58 - 5.54 x10(6)/[facility] Hemoglobin 14.8 13.7 - 16.5 gm/dL [facility] Hematocrit 43.4 40.5 - 48.5 % [facility] Mean Cell Volume 78.6(L) 82.9 - 93.1 fL [facility] Mean Cell Hemoglobin 26.8(L) 27.5 - 32.1 pg [facility] Mean Cell Hemoglobin Concentration 34.1 32.0 - 35.7 gm/dL [facility] [facility] Platelet 156 145 - 357 x10(3)/mc L [facility] RDW Standard Deviation 41.1 36.0 - 45.0 fL [facility] RDW coefficient of variation 14.8(H) 11.4 - 13.8 % [facility] Mean Platelet Volume 11.6 7.6 - 12.9 fL [facility] NRBC% auto 0.0 % [facility] NRBC Absolute 0.000 0.000 - 0.000 x10(3)/mc L [facility] Blood specimen (specimen) 09/03/2017 12:54 AM EST 09/03/2017 12:58 AM EST Narrative Resulting Agency Comment Spec In Lab Christopher Dalal MD HEMATOLOGY ORDERABLE S [facility] [place] [address] * Antibody screen (09/03/2017 12:54 AM EST) Ab Screen Interp Negative [facility] Expires at 2359 on: 09/06/2017 [facility] Blood specimen (specimen) 09/03/2017 12:54 AM EST 09/03/2017 12:54 AM EST Narrative Resulting Agency Comment Spec In Lab Christopher Dalal MD BLOOD BANK LAB ORDER LYNDSEY Performing Organization Address City/[facility]/ZIP Co de Phone Number [facility] [place] [address] * ABO/Rh Typing (09/03/2017 12:54 AM EST) ABORH Type O Pos [facility] Blood specimen (specimen) 09/03/2017 12:54 AM EST 09/03/2017 12:54 AM EST Narrative Resulting Agency Comment Spec In Lab Christopher Dalal MD BLOOD BANK LAB ORDER LYNDSEY Performing Organization Address [facility] Co de Phone Number [facility] [place] [address] * APTT (09/03/2017 12:54 AM EST) Partial Thromboplastin Time 26 25 - 35 sec [facility] Comment: The recommended therapeutic range for full dose, unfractionated heparin at [facility] is 80 ? 114 seconds. The use of the anti-Xa (heparin) level rather than the PTT is recommended for monitoring anticoagulation intensity in critically ill patients receiving unfractionated heparin by continuous IV infusion. Blood specimen (specimen) 09/03/2017 12:54 AM EST 09/03/2017 12:58 AM EST Narrative Resulting Agency Comment Spec In Lab Christopher Dalal MD HEMATOLOGY ORDERABLE S Performing Organization Address [facility] de Phone Number [facility] [place] [address] * Prothrombin Time (09/03/2017 12:54 AM EST) Prothrombin Time 13.6 11.8 - 14.0 sec [facility] International Normalization Ratio 1.1 0.9 - 1.1 [facility] Comment: An INR <2.0 indicates adequate [...] Lab Christopher Dalal MD HEMATOLOGY ORDERABLE S [facility] [place] [address] * Basic Metabolic Panel (non-fasting) (09/03/2017 12:54 AM EST) Glucose 84 65 - 199 mg/dL [facility] Comment:Diabetes: >=200 mg/d L plus symptoms Blood Urea Nitrogen 11 10 - 20 mg/dL [facility] Creatinine 0.97 0.80 - 1.50 mg/dL [facility] Sodium Not Perf 135 - 145 mmol/L [facility] Comment: Specimen hemolyzed. Called [facility], Read back by: Diana Reese, Date/Time:09/03/17 01:32. Potassium Not Perf 3.5 - 5.0 mmol/L [facility] Comment: Specimen hemolyzed. Called by: [facility], Read back by: Diana Reese, Date/Time:09/03/17 01:32. Please note: ??Patients with WBC >100,000 may have falsely elevated Potassium levels. ??For accurate Potassium quantification in these patients send serum separator tube (gold top) for subsequent determinations. ??Contact the Clinical Chemistry Laboratory if there are any questions. Chloride Not Perf 98 - 107 mmol/L [facility] Comment: Specimen hemolyzed. Called by: [facility], Read back by: Diana Reese, Date/Time:09/03/17 01:32. Carbon Dioxide Not Perf 22 - 31 mmol/L [facility] Comment: Specimen hemolyzed. Called by: [facility], Read back by: Diana Reese, Date/Time:09/03/17 01:32. Anion Gap Not Perf 5 - 15 mmol/L [facility] Comment: Specimen hemolyzed. Called by: [facility], Read back by: Diana Reese, Date/Time:09/03/17 01:32. Calcium Not Perf 8.5 - 10.5 [facility] Comment: Specimen hemolyzed. Called by: [facility], Read back by: Diana Reese, Date/Time:09/03/17 01:32. Est Glomerular Filtration Rate >60 >=60 [facility] Comment: The reported eGFR should be multiplied by 1.2 for patients. The MDRD is not an appropriate measure of renal function for patients with body mass extremes or in patients with acute kidney failure. http://bigtincan/DHnkdep http://bigtincan/DHMCnkf Blood specimen (specimen) 09/03/2017 12:54 AM EST 09/03/2017 12:58 AM EST Narrative Resulting Agency Comment Spec In Lab Christopher Dalal MD CHEMISTRY ORDERABLES [facility] [place] [id number] * XR Knee 1-2 Views Left (Generic) [...] Traction device is present. Beverley Bojorquez MD IMG DX ORDERABLES * XR Pelvis Judet or [...] appreciable change in alignment. Beverley Bojorquez MD IMG DX ORDERABLES * XR Knee [...] DAILY, First dose (after last modification) on [place] 11/30/17 at 1500, Until Discontinued, Maximum dose of acetaminophen is 4000 mg from all sources in 24 hours., Routine Given 03/12/2018 1:00 PM EDT 650 mg Given 03/12/2018 8:03 AM EDT 650 mg Given 03/11/2018 8:31 PM EDT 650 mg aspirin chewable tablet 81 mg 81 mg, Oral, DAILY, First dose (after last modification) on [place] 03/01/18 at 1545, Until Discontinued, Routine Given 03/12/2018 8:04 AM EDT 81 mg Given 03/11/2018 9:04 AM EDT 81 mg Given 03/10/2018 9:37 AM EDT 81 mg atorvastatin (LIPITOR) tablet 40 mg 40 mg, Oral, EVERY EVENING, First dose on [place] 03/01/18 at 1700, Until Discontinued, Routine Given 03/11/2018 5:23 PM EDT 40 mg Given 03/10/2018 5:35 PM EDT 40 mg Given 03/09/2018 5:51 PM EDT 40 mg bisacodyl (DULCOLAX) suppository 10 mg 10 mg, Rectal, DAILY PRN, Starting on Fri09/22/17 at 0904, Until Jo [place] 03/12/18 at 1526, Constipation, Use if senna-docusate or miralax ineffective, or per patient request., Routine Given 10/21/2017 6:4 0 PM EDT 10 mg Given 10/05/2017 12:18 PM EDT 10 mg Given 09/29/2017 4:51 PM EDT 10 mg calcium carbonate (TUMS) chewable tablet 500 mg 500 mg, Oral, NIGHTLY, First dose (after last modification) on [facility] 11/17/17 at 2100, Until Discontinued, Routine Given 03/11/2018 [...] (Top), 2 TIMES DAILY, First dose on Fri09/14/17 at 1200, Until Discontinued Given 03/12/2018 8:05 [...] DAILY, First dose (after last modification) on 11/30/17 at 1500, Until Discontinued, Maximum dose [...] RN) 0803 (Given - Provider: Mady Recio, HEATHER)1300 (Given - Provider: Mady Recio, HEATHER) aspirin chewable tablet 81 mg 81 mg, Oral, DAILY, First dose (after last modification) on 03/01/18 at 1545, Until Discontinued, Routine 0937 (Given - Provider: Vandana Jean Baptiste RN) 0904 (Given - Provider: Vandana Jean Baptiste RN) 0804 (Given - Provider: Mady Recio RN) atorvastatin (LIPITOR) tablet 40 mg 40 mg, Oral, EVERY EVENING, First dose on 03/01/18 at 1700, Until Discontinued, Routine 1735 (Given - Provider: [...] Baptiste RN) 1234 (Given - Provider: Mady Recio RN) hydrocortisone (CORTEF) tablet 20 mg 20 mg, Oral, EVERY MORNING, First dose on 09/07/17 at 0700, Until Discontinued, Routine 0647 (Given - Provider: Mady Foss RN) 06 (Given - Provider: Latrice Hoff RN) 06 (Given - Provider: Latrice Hoff RN) levothyroxine (SYNTHROID) tablet 225 mcg 225 mcg, Oral, EVERY MORNING, First dose (after last modification) on Fri01/13/18 at 0600, Until Discontinued, Routine 0646 (Given - Provider: Mady Foss RN) 06 (Given - Provider: Latrice Hoff, HEATHER) 06 (Given - Provider: Latrice Hoff RN) [...] Latrice Hoff RN - Reason: Patient/family refused) 09 (Given - Provider: Vandana Jean Baptiste RN)2042 (Not Given - Provider: Latrice Hoff RN - Reason: Patient/family refused) 804 (Given - Provider: Mady Recio RN) metoprolol succinate (TOPROL-XL) XL tablet 75 mg 75 mg, Oral, DAILY, First dose (after last modification) on Fri03/02/18 at 0900, Until Discontinued, DO NOT CRUSH OR OPEN, Routine 0936 (Given - Provider: Vandana Jean Baptiste RN) 09 (Given - Provider: Vandana Jean Baptiste RN) 08 (Given - Provider: Mady Recio RN) pantoprazole (PROTONIX) tablet 40 mg 40 mg, Oral, EVERY MORNING BEFORE BREAKFAST, First dose on Fri09/03/17 at 0730, Until Discontinued, DO NOT CRUSH OR OPEN 0647 (Given - Provider: Mady Foss RN) 0904 (Given - Provider: Vandana Jean Baptiste RN) 0804 (Given - Provider: Mady Recio, HEATHER) QUEtiapine (SEROquel) tablet 250 mg 250 mg, [...] Hold for loose stools please! Thanks!, Routine 09 (Given - Provider: Vandana Jean Baptiste RN)2050 (Given - Provider: Latrice Hoff RN) 09 (Given - Provider: Vandana Jean Baptiste RN)2026 (Given - Provider: Latrice Hoff RN) 0803 (Given - Provider: Mady Recio RN) testosterone (ANDROGEL) 1 % (25 mg/2.5 g) [...] from all sources in 24 hours, Routine 0912 (Given - Provider: Mady Recio, HEATHER) naphazoline-pheniramin e (NAPHCON-A) 0.025-0.3 % ophthalmic solution 1 drop 1 drop, Both Eyes, 3 TIMES DAILY PRN, Starting on Fri09/03/17 at 0203, Until Jo Ann 03/12/18 at 1526, Irritation, Routine polyethylene glycol (MIRALAX) packet 17 g 17 g, Oral, DAILY PRN, Starting on 11/12/17 at 1037, Until [place] 03/12/18 at 1526, Constipation, If not bowel movement in last 24 hours., Routine QUEtiapine (SEROquel) tablet 50 mg 50 mg, Oral, 2 TIMES DAILY PRN, Starting on 11/29/17 at 1040, Until Jo [place] 03/12/18 at 1526, Agitation, Routine 1446 (Given - Provider: Vandana Jean Baptiste RN)2235 (Given - Provider: Latrice Hoff RN) 1241 (Given - Provider: Vandana Jean Baptiste RN)2035 (Given - Provider: Latrice Hoff, HEATHER) 1015 (Given - Provider: Mady Recio, HEATHER)1235 (Given - Provider: Mady Recio, HEATHER - Comment: per [facility] communication) simethicone (MYLICON) chewable tablet 40 mg 40 mg, Oral, EVERY 6 HOURS PRN, Starting on Jo [place] 10/23/17 at 1934, Until Jo Ann 03/12/18 at 1526, Cramping, Routine documented in this encounter Care Teams Quality Worker Relationship Specialty Start Date End Date Lc Venegas PA [address] [place] [address] PCP - General General Internal Medicine 09/03/17 documented as of this encounter
--- OUTSIDE RECORDS SUMMARY | 2024-07-22 13:57 | XMS_ITS | Encounter Summary ---
Author Organization [facility] Address [facility] [place] [address] Care Team Providers Care Telephone Appointment Clerk Name Role Phone Corin Skinner MD Primary Care Provider Encounter Details Date Type Department Care Team (Latest Contact Info) Description 09/02/2017 12:05 AM EST - 09/02/2017 12:09 AM [facility] Hospital Encounter Radiology Library at [facility] [place] [address] eNo Gar MD Discharge Disposition: Home Social History [...] MD IMG FILM LIBRARY OR DERABLES [place], [place] documented in this encounter Visit Diagnoses Not on filedocumented in this encounter Care Teams Telephone Appointment Clerk Relationship Specialty Start Date End Date Corin Skinner MD PCP - General 05/29/10 09/02/17 documented as of this encounter
--- OUTSIDE RECORDS SUMMARY | 2024-07-22 13:57 | XMS_ITS | Encounter Summary ---
Author Organization [facility] Address [facility] [address] Care Team Providers Care Coal Trimmer Machine Operator Name Role Phone Corin Skinner MD Primary Care Provider Encounter Details Date Type Department Care Team (Latest Contact Info) Description 09/02/2017 12:15 AM EST - 09/02/2017 12:19 AM EST Hospital Encounter Radiology Library at [facility] [address] Neo Gar MD Discharge Disposition: Home Social [...] MD IMG FILM LIBRARY OR DERABLES [place], [place] documented in this encounter Visit Diagnoses Not on filedocumented in this encounter Care Teams Coal Trimmer Machine Operator Relationship Specialty Start Date End Date Corin Skinner MD PCP - General 05/29/10 09/02/17 documented as of this encounter
--- OUTSIDE RECORDS SUMMARY | 2024-07-22 13:57 | XMS_ITS | Encounter Summary ---
Author Organization [facility] Address [facility] [place] [address] Care Team Providers Care Clerical Assigner Name Role Phone Corin Skinner MD Primary Care Provider [phone] Encounter Details Date Type Department Care Team (Latest Contact Info) Description 09/02/2017 12:10 AM EST - 09/02/2017 12:14 AM EST Hospital Encounter Radiology Library at [facility] [place] [address] Neo Gar MD Discharge Disposition: Home Social [...] MD IMG FILM LIBRARY OR DERABLES [place], [place] documented in this encounter Visit Diagnoses Not on filedocumented in this encounter Care Teams Clerical Assigner Relationship Specialty Start Date End Date Corin Skinner MD PCP - General 05/29/10 09/02/17 documented as of this encounter
--- OUTSIDE RECORDS SUMMARY | 2024-07-22 13:57 | XMS_ITS | Encounter Summary ---
Author Organization [facility] [place] [address] Care Team Providers Care Marine Engine Machinist Apprentice Name Role Phone Lc Venegas Primary Care Provider [phone] Encounter Details Date Type Department Care Team (Late st Contact Info) Description 09/03/2017 [place] [address] Tobias Sotomayor MD [facility] [place] [address] Social History Tobacco Use Types Packs/Day Years [...] filedocumented in this encounter Care Teams Marine Engine Machinist Apprentice Relationship Specialty Start Date End Date Lc Venegas PA [address] [place] [address] PCP - General General Internal Medicine 09/03/17 documented as of this encounter
--- OUTSIDE RECORDS SUMMARY | 2024-07-22 13:57 | XMS_ITS | Encounter Summary ---
Author Organization [facility] Address [facility] [place] [address] Care Team Providers Care Communications Station Manager Name Role Phone Corin Skinner MD Primary Care Provider [phone] Encounter Details Date Type Department Care Team (Latest Contact Info) Description 09/02/2017 12:20 AM EST - 09/02/2017 9:22 PM EST Hospital Encounter Radiology Library at [facility] [place] [address] Neo Gar MD Discharge Disposition: Home Social [...] MD IMG FILM LIBRARY OR DERABLES JO [place], [place] documented in this encounter Visit Diagnoses Not on filedocumented in this encounter Care Teams Communications Station Manager Relationship Specialty Start Date End Date Corin Skinner MD PCP - General 05/29/10 09/02/17 documented as of this encounter
[2024-07-22 15:38] LABS: Anion Gap 7.6 mmol/L (3-11); BUN 17 mg/dL (7-18); CO2 28.4 mmol/L (21.0-32.0); Calcium 8.6 mg/dL (8.5-10.1); Chloride 105 mmol/L (98-107); Estimated GFR 101.28 (mL/min/1.73m2); Glucose 80 mg/dL (74-106); Potassium 3.8 mmol/L (3.5-5.1); Sodium 141 mmol/L (136-145)
== END 2024-07-22 13:35 | disposition home or self-care (01) ==
LOC: NCHCN 13:34
PROVIDERS: PCP Student in an Organized Health Care Education/Training Program; Visit Provider Student in an Organized Health Care Education/Training Program
DX: E87.1 Hypo-osmolality and hyponatremia (principal)
CPT/HCPCS: 80048

== ENCOUNTER 2024-07-30 02:19 | Outpatient (CLI) | payer MEDICAID, SELFPAY ==
--- OUTSIDE RECORDS SUMMARY | 2024-07-30 02:55 | XMS_ITS | Encounter Summary ---
Author Organization [facility] Address [address] [place] [address] Care Team Providers Care Tire Maintenance Technician Name Role Phone Ren Vaz MD Primary Care Provider Reason for Visit * Reason Onset Date Comments Follow-up 01/04/2020 Encounter Details Date Type Department Care Team (Late st Contact Info) Description 01/04/2020 Telephone [facility] Endocrinology - [facility] [place] [address] [place] [address] Wilder Zaidi, [address] [facility] [address] [place] [address] Follow-up Social History Tobacco Use [...] progress note printed. Both documents faxed to [phone] by this food writer. Informed to call back if needs more information. LESLEY COURTNEY RN 01/04/2020 16:49 * Telephone Encounter - Lesley Jeffrey RN - 01/04/2020 1315 EDT Kwesi calling from [facility] 01/04/20 13:16 Need a referral to be able to draw the lab requisitions that were electronically faxed 01/04/20 by this food writer. [facility] 1. Facility needs referral to be completed/signed by provider 2. Include last progress note 3. Attention : not necessary Kwesi will be faxing the referral to [phone]. The fax will be to this food writer's attention. Referral received 01/04/20 at 12:18. Form will be handed to the provider. LESLEY COURTNEY RN 01/04/2020 13:21 * Telephone Encounter - Debbie Choudhary - 01/04/2020 1313 EDT Raphael calling back for Lesley. documented in this encounter Plan of Treatment Upcoming Encounters Date Type Department Care Team (Late st Contact Info) Description 10/01/2024 13:40 EDT Office Visit [facility] Endocrinology - [address] [address] Wilder Zaidi, DO [address] [facility] [address] [place] [address] documented as of this encounter Visit Diagnoses Not on filedocumented in this encounter Care Teams Tire Maintenance Technician Relationship Specialty Start Date End Date Ren Vaz MD [address] [place] [address] PCP - General 09/30/18 documented as of this encounter
--- OUTSIDE RECORDS SUMMARY | 2024-07-30 02:55 | XMS_ITS | Encounter Summary ---
Author Organization [facility] Address [address] [place] [address] Care Team Providers Care Video Control Operator Name Role Phone Ren Vaz MD Primary Care Provider [phone] Reason for Visit * Reason Onset Date Comments Home Health 01/12/2020 discuss other la b draws and flexeril Encounter Details Date Type Department Care Team (Late st Contact Info) Description 01/12/2020 Telephone [facility] Endocrinology - [facility] [address] [place] [address] Wilder Zaidi, [address] [facility] [address] [place] [address] Home Health (discuss other lab [...] Robin Baird - 01/12/2020 1449 EDT [facility] RN She megan labs today that were ordered. Ladonna doesn't know what else Miguel Angel would need [facility]. Also maybe In need for flexeril and should patient go through PCP for that . Please call to discuss. documented in this encounter Plan of Treatment Upcoming Encounters Date Type Department Care Team (Late st Contact Info) Description 10/01/2024 13:40 EDT Office Visit [facility] Endocrinology - [facility] [address] [place] [address] Wilder Zaidi, DO [address] [facility] [address] [place] [address] documented as of this encounter Visit Diagnoses Not on filedocumented in this encounter Care Teams Video Control Operator Relationship Specialty Start Date End Date Ren Vaz [place] [address] PCP - General 09/30/18 documented as of this encounter
--- OUTSIDE RECORDS SUMMARY | 2024-07-30 02:55 | XMS_ITS | Encounter Summary ---
Author Organization [facility] Address [address] [place] [address] Care Team Providers Care Sprinkling System Irrigator Name Role Phone Ren Vaz MD Primary Care Provider [phone] Reason for Visit * Reason Comments Other Secondary adrenal in sufficiency * Referral (Routine) - Receiving Office to Obtain Authorization Specialty Diagnoses / Procedures Referred By Duyen bui Referred To Contact Endocrinology Diagnoses 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HCC-CMS) Ren Vaz MD [address] [place] [address] [place] [address] Phone: tel: fax: [facility] Endocrinology [address] [address] Phone: tel: fax: Referral ID Status Reason Start Date Expiration Date Visits Requested Visits Authorized [id number] Receiving Office to Obtain Authorization 1 1 Encounter Details Date Type Department Care Team (Latest Contact Info) Description 03/06/2023 15:00 EDT Office Visit [facility] Endocrinology [address] [address] Jono Sanchez MD [address] [place] [phone] 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HCC-CMS) (Primary Dx); Secondary adrenal insufficiency (HCC-CMS); 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HCC-CMS); 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 No hospitalization No new med Current med [...] [facility] Endocrinology - [facility] [address] [place] [address] Wilder Zaidi, [address] [facility] [address] [place] [address] documented as of this encounter [...] 03/03/2023 added in this encounter Care Teams Sprinkling System Irrigator Relationship Specialty Start Date End Date Ren Vaz MD [facility] [place] [address] PCP - General 09/30/18 documented as of this encounter
--- OUTSIDE RECORDS SUMMARY | 2024-07-30 02:55 | XMS_ITS | Encounter Summary ---
Author Organization [facility] Address [address] [place] [address] Care Team Providers Care Office Administrative Assistant Name Role Phone Ren Vaz MD Primary Care Provider [phone] Reason for Visit * Reason Onset Date Comments Requesting Sooner Appointment 05/21/2019 Patient Information Update 05/21/2019 Encounter Details Date Type Department Care Team (Late st Contact Info) Description 05/21/2019 Telephone [facility] Endocrinology - [address] [id number] Lesley Jeffrey RN Requesting Sooner Appointment; Patient [...] any day next week as I am supply controller and have no patients scheduled in the morning. Please send me an email confirming date and time of appointment so I can put on my calendar. * Telephone Encounter - Lesley Jeffrey RN - 05/21/2019 1059 EST Images from the original note were not included. Message received from PAC : Cam Pisano 10:29 []Hide copied text []Hover for details Multifocal Button Grinder calling on behalf of client to get sooner FUR w/Dr Zaidi. Soonest this account underwriter could schedule was September 2019. ?? Stated patient had 'an incident' that would qualify him for sooner appt date and that Dr Zaidi knows about this patient's history and would want to see him sooner than that. ?? Asked for nurse to call her back as well as breakfast bar attendant for sooner appt date Returning call to shelter case manager 05/21/19 10:37 Sheep Farm Manager and account underwriter identified that the patient that was [...] that had originally been sent to this account underwriter LESLEY COURTNEY RN 05/21/2019 11:01 documented in this encounter Plan of Treatment Upcoming Encounters Date Type Department Care Team (Late st Contact Info) Description 10/01/2024 13:40 EDT Office Visit [facility] Endocrinology - [place] [address] [place] [address] Wilder Zaidi, DO [address] [place] [address] documented as of this encounter Visit Diagnoses Not on filedocumented in this encounter Care Teams Office Administrative Assistant Relationship Specialty Start Date End Date Ren Vaz MD [facility] [address] [place] [address] PCP - General 09/30/18 documented as of this encounter
--- OUTSIDE RECORDS SUMMARY | 2024-07-30 02:55 | XMS_ITS | Encounter Summary ---
Author Organization [facility] Address [address] [place] [address] Care Team Providers Care Forestry Engineer Name Role Phone Ren Vaz MD Primary Care Provider [phone] Reason for Referral * (Routine/Next Available) - Receiving Office to Obtain Authorization Specialty Diagnoses / Procedures Referred By Contac t Referred To Contact Procedures XR OUTSIDE IMAGES DEXA Imaging, External Referral ID Status Reason Start Date Expiration Date Visits Requested Visits Authorized [id number] Receiving Office to Obtain Authorization 10/03/2023 1 1 Reason for Visit * (Routine/Next Available) - Receiving Office to Obtain Authorization Specialty Diagnoses / Procedures Referred By Contac t Referred To Contact Procedures XR OUTSIDE IMAGES DEXA Imaging, External Referral ID Status Reason Start Date Expiration Date Visits Requested Visits Authorized [id number] Receiving Office to Obtain Authorization 10/03/2023 1 1 Encounter Details Date Type Department Care Team (Latest Contact Info) Description 10/03/2023 15:30 EDT - 10/03/2023 23:59 EDT Hospital Encounter [facility] Radiology - Main [place] [address] [place], [place] [address] Discharge Disposition: Home or Self Care Social [...] EDT Office Visit [facility] Endocrinology - [place] [address] [place], [place] [id number] Wilder Zaidi, DO [address] [place] [address] documented as of this encounter [...] filedocumented in this encounter Care Teams Forestry Engineer Relationship Specialty Start Date End Date Ren [place] [address] PCP - General 09/30/18 documented as of this encounter
--- OUTSIDE RECORDS SUMMARY | 2024-07-30 02:55 | XMS_ITS | Encounter Summary ---
Author Organization [facility] Address [address] [place] [address] Care Team Providers Care Buffing Machine Operator Semiautomatic Name Role Phone eRn Vaz MD Primary Care Provider [phone] Encounter Details Date Type Department Care Team (Late st Contact Info) Description 08/09/2019 Lab Requisition [facility] Pathology & Laboratory Medicine - [facility] [address] [place] [address] Mary Jo Eldridge, DO [address] [place] [address] [place], [place] [id number] Vomiting, unspecified; Adult hypertrophic pyloric stenosis; Unspecified [...] Description 10/01/2024 13:40 EDT Office Visit [facility] Endocrinology - [facility] [address] [place] [address] Wilder Zaidi, DO [address] [place] [address] documented as of this encounter [...] of consciousness of unspecified duration, initial encounter ([facility]) Other gastritis without bleeding documented in this [...] Organisms compatible with sarcina noted. 08/18/2019 12:07 [facility] at 1207 Diagnosis Comment Iron stain is negative for iron deposition (A2). 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 Clinical correlation is recommended. 08/18/2019 12:07 [facility] Clinical History Gastric outlet obstruction 08/18/2019 12:07 [facility] Attestation By the signature below, the attending physician certifies that they have personally conducted a gross and/or microscopic examination of the described specimens and rendered or confirmed the above diagnosis. 08/18/2019 12:07 [facility] at 1207 Gross [...] B1. Candice Anum 08/09/2019 16:08 08/18/2019 12:07 [facility] Scanned Images 08/18/2019 12:07 [facility] Tissue ENTIRE STOMACH / Unknown 08/08/2019 14:49 EST 08/09/2019 15:52 EST Tissue specimen (specimen) STOMACH STRUCTURE / Unknown 08/08/2019 14:49 EST 08/09/2019 15:52 EST us Mary Jo Eldridge DO PATHOLOGY ORDERABLES Final Re sult [facility] [address] [place] [address] documented in this encounter Visit Diagnoses Diagnosis Vomiting, unspecified Adult hypertrophic pyloric stenosis Acquired hypertrophic pyloric stenosis Unspecified convulsions ([facility]) Hypopituitarism ([facility]) Panhypopituitarism Cramp and spasm Gastro-esophageal reflux disease without esophagitis Esophageal reflux Diabetes insipidus ([facility]) Diabetes insipidus Fever, unspecified Other specified health status Transient alteration of awareness Unspecified intracranial injury with loss of consciousness of unspecified duration, initial encounter ([facility]) Other gastritis without bleeding documented in this encounter Care Teams Buffing Machine Operator Semiautomatic Relationship Specialty Start Date End Date Ren Vaz MD [address] [place] [address] PCP - General 09/30/18 documented as of this encounter
--- OUTSIDE RECORDS SUMMARY | 2024-07-30 02:55 | XMS_ITS | Encounter Summary ---
Author Organization [facility] Address [address] [place] [address] Care Team Providers Care Shingle Cutter Name Role Phone Ren Vaz MD Primary Care Provider [phone] Reason for Visit * Reason Onset Date Comments Other 06/21/2024 Needs permission to discuss Follow-up 06/21/2024 Encounter Details Date Type Department Care Team (Late st Contact Info) Description 06/21/2024 Telephone [facility] Endocrinology - [facility] [address] [place] [address] Wilder Zaidi, [address] [facility] [address] [place] [address] Other (Needs permission to discuss); [...] Zaidi. Please call Bettina back to schedule [phone] * Telephone Encounter - Mavis Franco RN - 06/21/2024 1624 EST Images from the original note were not included. Spoke with Prachi at [facility]. Fax will be sent of document [...] ICU today. Bettina Before [address] [place] [address] Routing to Salud Butron, Dr. Zaidi, and [facility] carrie. MAVIS FRANCO RN 06/21/2024 17:02 * Telephone Encounter - Lucille Carmichael - 06/21/2024 1433 EST Bettina Burgos (sister) calling. Asking if patient is still seeing Dr Zaidi/when is next appt, etc. This person is not listed on his permission to discuss and automatic typewriter inspector could not give her any answers. Bettina because annoyed and asked that Dr. Zaidi call and speak with her directly. documented in this encounter Plan of Treatment Upcoming Encounters Date Type Department Care Team (Late st Contact Info) Description 10/01/2024 13:40 EDT Office Visit [facility] Endocrinology - [facility] [address] [place] [address] Wilder Zaidi, DO [address] [facility] [address] [place] [address] documented as of this encounter Visit Diagnoses Not on filedocumented in this encounter Care Teams Shingle Cutter Relationship Specialty Start Date End Date Ren Vaz MD [facility] [place] [address] PCP - General 09/30/18 documented as of this encounter
--- OUTSIDE RECORDS SUMMARY | 2024-07-30 02:55 | XMS_ITS | Encounter Summary ---
Author Organization [facility] Address [address] [place] [address] Care Team Providers Care Maintenance Millwright Name Role Phone Ren Vaz MD Primary Care Provider [phone] Reason for Visit * Reason Comments Hypogonadism Encounter Details Date Type Department Care Team (Latest Contact Info) Description 03/04/2024 11:00 EDT Office Visit [facility] Endocrinology - [address] [phone] Day Littlejohn MD PhD [address] [facility] [address] [place] [address] Hypopituitarism involving multiple pituitary deficiencies [...] Miguel Angel Burgos Jr. CHIEF COMPLAINT Panhypopituitarism REPAIRER CYLINDER HEADS deficiency (formerly Diabetes Insipidus) HISTORY OF PRESENT [...] 20 mg AM and 10 mg PM REPAIRER CYLINDER HEADS deficiency-on DDAVP 100 mcg AM and 150 [...] ICD-9-CM 1. 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 [facility] [address] [place] [address] Scheduled Orders Name Type Priority [...] 07/06/2024 added in this encounter Care Teams Maintenance Millwright Relationship Specialty Start Date End Date Ren Vaz MD [address] [place], [place] [address] [place] [address] PCP - General 09/30/18 documented as of this encounter
--- OUTSIDE RECORDS SUMMARY | 2024-07-30 02:55 | XMS_ITS | Clinical Summary ---
Author Organization [facility] Address [address] [place] [address] Care Team Providers Care Cookie Padder Name Role Phone Ren Vaz MD Primary Care Provider [phone] Allergies Active Allergy Reactions Criticality Noted Date [...] original. 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); History of pituitary surgery; Secondary adrenal insufficiency (HCC-CMS); 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HCC-CMS); Craniopharyngioma (HCC-CMS); 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HCC-CMS); Secondary hypothyroidism 06/21/[address] [address] Wilder Zaidi, Other (Needs permission [...] 10/01/2024 13:40 EDT Office Visit [facility] Endocrinology - [facility] [address] [place] [address] Wilder Zaidi, [address] [facility] [address] [place] [address] Health Maintenance Due Date Last Done Comments Hepatitis B Vaccine (1 of 3 - 19+ 3-dose series) 2009 COVID-19 Vaccine ( season) 2024, 02/26/2022 Hepatitis C Screen Completed 07/30/2019, 02/26/2005 Medical Devices Implanted Type Area Business Relations Manager Device Identifier Shelf Expiration Date Model [...] 0.8 - 2.2 ng/dL 07/06/2024 18:52 EST [facility] Blood VENOUS BLOOD / Unknown Venipuncture / Unknown 07/06/2024 14:44 EST 07/06/2024 14:45 EST Wilder Zaidi DO CHEMISTRY & BLOOD GAS ORDERABLES Final Result [facility] [address] [place] [address] * HEMOGLOBIN A1C (07/06/2024 14:44 EST) Hemoglobin A1c 4.9 <5.7 % 07/06/2024 20:54 EST [facility] Comment: Glycemic Status References: Normal: ??<5.7% Pre-Diabetes: ??5.7% - 6.4% Diagnostic of Diabetes: ??> or = 6.5% (if confirmed) Est Avg Glucose 94 mg/dL 20:54 EST [facility] Comment:The eAG represents t he A1c result expressed as average glucose in mg/dL. Blood VENOUS BLOOD / Unknown Venipuncture / Unknown 07/06/2024 14:44 EST 07/06/2024 14:45 EST Wilder Zaidi DO CHEMISTRY & BLOOD GAS ORDERABLES Final Result Performing Organization Address City/[facility]/ZIP Co de Phone Number [facility] [address] [place] [address] * BASIC METABOLIC PANEL (BMP) (07/06/2024 14:44 EST) Sodium 142 136 - 145 mmol/L 07/06/2024 18:31 [facility] Potassium 4.3 3.5 - 5.0 mmol/L 07/06/2024 18:31 [facility] Chloride 107 96 - 110 mmol/L 07/06/2024 18:31 [facility] CO2 Total 22 22 - 32 mmol/L 07/06/2024 18:31 [facility] Anion Gap 13 5 - 14 mmol/L 07/06/2024 18:31 [facility] Glucose 87 70 - 99 mg/dl 07/06/2024 18:31 [facility] Calcium 9.2 8.5 - 10.5 mg/dL 07/06/2024 18:31 [facility] BUN 17 10 - 26 mg/dL 07/06/2024 18:31 [facility] Creatinine 0.95 0.66 - 1.25 mg/dL 07/06/2024 18:31 [facility] eGFR 108 >60 mL/min/1.73 m2 07/06/2024 18:31 [facility] Blood VENOUS BLOOD / Unknown Venipuncture / Unknown 07/06/2024 14:44 EST 07/06/2024 14:45 EST Wilder Zaidi DO CHEMISTRY & BLOOD GAS ORDERABLES Final Result Performing Organization Address City/[facility]/ZIP Co de Phone Number [facility] [address] [place] [address] * HEPATITIS C AB W REFLEX TO HCV RNA BY PCR (07/30/2019 11:59 EST) Hep C Antibody Negative Negative 08/02/2019 11:26 EST [facility] Blood VENOUS BLOOD / Unknown 07/30/2019 11:59 EST 07/30/2019 16:45 EST us Provider Unknown CHEMISTRY & BLOOD GAS ORDERA BLES Final Result [facility] [address] [place] [address] from Last 3 Months or Most Recently Relevant to Health Maintenance Insurance MEDICAID ACO [place] Advance Directives For more information, please contact: [phone] Documents on File Type Date Recorded Patient Wireless Retail Manager Expl anation Guardianship 06/25/2024 9:50 [address] [place] [address] [place] [address], [facility] Appointment of Gu * Full Code (Latest Code Status on File) Date Activated Date Inactivated Comments 02/24/2011 22:28 02/25/2011 20:41 Care Teams Cookie Padder Relationship Specialty Start Date End Date Ren Vaz MD [place] [address] PCP - General 09/30/18
--- OUTSIDE RECORDS SUMMARY | 2024-07-30 02:55 | XMS_ITS | Encounter Summary ---
Author Organization [facility] Address [address] [place] [address] Care Team Providers Care Maintenance Worker House Trailer Name Role Phone Ren Vaz MD Primary Care Provider [phone] Reason for Visit * Reason Onset Date Comments Appointment Related 11/19/2019 Encounter Details Date Type Department Care Team (Late st Contact Info) Description 11/19/2019 Telephone [facility] Endocrinology - [facility] [address] [place] [address] Wilder Zaidi, DO [address] [facility] [address] [place] [address] Appointment Related Social History Tobacco [...] Tomasa Merrill - 11/19/2019 1347 EDT 11/19/2019- [facility] for patient to call back to change 11/26/2019 Dr. Zaidi appointment to a televideo visit. documented in this encounter Plan of Treatment Upcoming Encounters Date Type Department Care Team (Late st Contact Info) Description 10/01/2024 13:40 EDT Office Visit [facility] Endocrinology - [address] [address] Wilder Zaidi, [address] [place] [address] [address] [place] [phone] documented as of this encounter Visit Diagnoses Not on filedocumented in this encounter Care Teams Maintenance Worker House Trailer Relationship Specialty Start Date End Date Ren Vaz MD [facility] [place] [address] PCP - General 09/30/18 documented as of this encounter
--- OUTSIDE RECORDS SUMMARY | 2024-07-30 02:55 | XMS_ITS | Encounter Summary ---
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) Procedures SODIUM Wilder Zaidi DO [address] [employer] [facility] [address] [place] [address] Phone: tel: fax: Referral ID Status Reason Start Date Expiration Date V isits Requested Visits Authorized [id number] New Request 07/06/2024 4 4 Reason for Visit * Reason Comments Adrenal Gland Problem Encounter Details Date Type Department Care Team (Latest Contact Info) Description 07/06/2024 13:40 EST Office Visit [facility] Endocrinology - [facility] [address] [place] [address] Wilder Zaidi DO [address] [employer] [facility] [address] [place] [address] 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); History of pituitary surgery; Secondary adrenal insufficiency (HCC-CMS); 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HCC-CMS); Craniopharyngioma (HCC-CMS); 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[facility]); Secondary hypothyroidism Social History Tobacco Use Types [...] in one week Follow-up in 3 months [email or web address] documented in this encounter Progress Notes * Wilder Zaidi, - 07/06/2024 1340 EST SUBJECTIVE: Mr Miguel Angel Burgos is a 34-year-old male who returns to the endocrine clinic today for 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 He is accompanied by his legal guardian Bettina and a risk control field representative from his retirement named Ladonna. Miguel Angel is currently living in a retirement where his medications are distributed to him and they maintain a strict fluid restriction. Patient has been followed by Dr. Littlejohn but would like to switch back to this provider. I have been taking care of this provider for many years up until the pandemic where he seemed to somehow get off my schedule. Unfortunately, Miguel Angel was hospitalized at [facility] from June 14, 2024 June 21, 2024 [...] at time of discharge on 06/21/2024 at [facility] showed sodium stable at 141 ASSESSMENT: 1. 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 a. [...] on MRI as part of workup at [facility] during recent admission. There is discussion regarding spinal node versus meningioma. Patient has upcoming appointment with neurosurgery at [facility] in July 2024. 3. Osteoporosis. Patient had a DEXA scan performed on 10/03/2023 at [facility] in [place], [place]. Patient was found to have a [...] weekly for the next [address] [facility] in [place], [place]. Lab request faxed to that facility today by front office staff 10. Follow-up with me in 3 months documented in this encounter Plan of Treatment Upcoming Encounters Date Type Department Care Team (Late st Contact Info) Description 10/01/2024 13:40 EDT Office Visit [facility] Endocrinology - [address] [address] Wilder Zaidi DO [address] [place] [address] [place] [address] Scheduled Orders Name Type Priority Associated [...] 0.8 - 2.2 ng/dL 07/06/2024 18:52 EST [facility] Blood VENOUS BLOOD / Unknown Venipuncture / Unknown 07/06/2024 14:44 EST 07/06/2024 14:45 EST Wilder Zaidi DO CHEMISTRY & BLOOD GAS ORDERABLES Final Result Performing Organization Address [facility] Co de Phone Number [facility] [address] [place] [address] * HEMOGLOBIN A1C (07/06/2024 14:44 EST) Hemoglobin A1c 4.9 <5.7 % 07/06/2024 20:54 EST [facility] Comment: Glycemic Status References: Normal: ??<5.7% Pre-Diabetes: ??5.7% - 6.4% Diagnostic of Diabetes: ??> or = 6.5% (if confirmed) Est Avg Glucose 94 mg/dL 20:54 [facility] Comment:The eAG represents t he A1c result expressed as average glucose in mg/dL. Blood VENOUS BLOOD / Unknown Venipuncture / Unknown 07/06/2024 14:44 EST 07/06/2024 14:45 EST Wilder Zaidi DO CHEMISTRY & BLOOD GAS ORDERABLES Final Result Performing Organization Address [facility] Co de Phone Number [facility] [address] [place] [address] * BASIC METABOLIC PANEL (BMP) (07/06/2024 14:44 EST) Sodium 142 136 - 145 mmol/L 07/06/2024 18:31 EST [facility] Potassium 4.3 3.5 - 5.0 mmol/L 07/06/2024 18:31 [facility] Chloride 107 96 - 110 mmol/L 07/06/2024 18:31 [facility] CO2 Total 22 22 - 32 mmol/L 07/06/2024 18:31 [facility] Anion Gap 13 5 - 14 mmol/L 07/06/2024 18:31 [facility] Glucose 87 70 - 99 mg/dl 07/06/2024 18:31 [facility] Calcium 9.2 8.5 - 10.5 mg/dL 07/06/2024 18:31 [facility] BUN 17 10 - 26 mg/dL 07/06/2024 18:31 [facility] Creatinine 0.95 0.66 - 1.25 mg/dL 07/06/2024 18:31 [facility] eGFR 108 >60 mL/min/1.73 m2 07/06/2024 18:31 [facility] Blood VENOUS BLOOD / Unknown Venipuncture / Unknown 07/06/2024 14:44 EST 07/06/2024 14:45 EST Wilder Zaidi DO CHEMISTRY & BLOOD GAS ORDERABLES Final Result [facility] [address] [place], [place] [id number] documented in this encounter Visit Diagnoses Diagnosis [...] daily. added in this encounter Care Teams Call Center Dispatcher Relationship Specialty Start Date End Date Ren Vaz MD [facility] [place] [address] PCP - General 09/30/18 documented as of this encounter
--- OUTSIDE RECORDS SUMMARY | 2024-07-30 02:55 | XMS_ITS | Encounter Summary ---
Author Organization [facility] Address [address] [place] [address] Care Team Providers Care Mechanical Lead Name Role Phone Ren Vaz MD Primary Care Provider [phone] Reason for Visit * Reason Onset Date Comments Medication Questions 11/09/2020 Encounter Details Date Type Department Care Team (Late st Contact Info) Description 11/09/2020 Telephone [facility] Endocrinology - [facility] [address] [place] [address] Wilder Zaidi, [address] [facility] [address] [place] [address] Medication Questions Social History Tobacco [...] 11/09/2020 1432 EDT Call to: Prachi manager financial Relayed Dr. Zaidi's message: Wilder Zaidi DO [...] - 11/09/2020 1109 EDT Caller is the case sealer for patient, advising that the patient saw [...] [facility] Endocrinology - [facility] [address] [place] [address] Wilder Zaidi, [address] [facility] [address] [place] [address] documented as of this encounter Visit Diagnoses Not on filedocumented in this encounter Care Teams Mechanical Lead Relationship Specialty Start Date End Date [place] [address] PCP - General 09/30/18 documented as of this encounter
--- OUTSIDE RECORDS SUMMARY | 2024-07-30 02:55 | XMS_ITS | Referral Summary ---
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 Patient has given permission for the [facility] to verbally discuss the following information [...] of systemic steroids 024 Secondary adrenal insufficiency ([facility]) 2018 Hypopituitarism involving mu ltiple pituitary deficiencies ([facility]) 06/14/2010 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[facility]) 03/2010 Craniopharyngioma ([facility]) 06/14/2010 Gonadotropin deficiency ([facility]) 06/14/2010 Secondary hypothyroidism 06/14/2010 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[facility]) 06/14/2010 Social History Tobacco Use Types Packs/Day [...] Office Visit [facility] Endocrinology - [address] [address] Wilder Zaidi, DO [address] [facility] [address] [place] [address] Medical Devices Implanted Type Area Hydropulper Device Identifier Shelf Expiration Date Model / [...] 0.8 - 2.2 ng/dL 07/06/2024 18:[address] [facility] Blood VENOUS BLOOD / Unknown Venipuncture / Unknown 07/06/2024 14:44 EST 07/06/2024 14:45 EST us Wilder Zaidi DO CHEMISTRY & BLOOD GAS ORDERABLES Final Result [facility] [address] [place] [id number] * HEMOGLOBIN A1C (07/06/2024 14:44 EST) Hemoglobin A1c 4.9 <5.7 % 07/06/2024 20:[address] [facility] Comment: Glycemic Status References: Normal: ??<5.7% Pre-Diabetes: ??5.7% - 6.4% Diagnostic of Diabetes: ??> or = 6.5% (if confirmed) Est Avg Glucose 94 mg/dL 20:54 [facility] Comment:The eAG represents t he A1c result expressed as average glucose in mg/dL. Blood VENOUS BLOOD / Unknown Venipuncture / Unknown 07/06/2024 14:44 EST 07/06/2024 14:45 EST Wilder Zaidi DO CHEMISTRY & BLOOD GAS ORDERABLES Final Result [facility] [address] [place] [address] * BASIC METABOLIC PANEL (BMP) (07/06/2024 14:44 EST) Sodium 142 136 - 145 mmol/L 07/06/2024 18:31 [facility] Potassium 4.3 3.5 - 5.0 mmol/L 07/06/2024 18:31 [facility] Chloride 107 96 - 110 mmol/L 07/06/2024 18:31 [facility] CO2 Total 22 22 - 32 mmol/L 07/06/2024 18:31 [facility] Anion Gap 13 5 - 14 mmol/L 07/06/2024 18:31 [facility] Glucose 87 70 - 99 mg/dl 07/06/2024 18:31 [facility] Calcium 9.2 8.5 - 10.5 mg/dL 07/06/2024 18:31 [facility] BUN 17 10 - 26 mg/dL 07/06/2024 18:31 [facility] Creatinine 0.95 0.66 - 1.25 mg/dL 07/06/2024 18:31 [facility] eGFR 108 >60 mL/min/1.73 m2 07/06/2024 18:31 [facility] Blood VENOUS BLOOD / Unknown Venipuncture / Unknown 07/06/2024 14:44 EST 07/06/2024 14:45 EST us Wilder Zaidi DO CHEMISTRY & BLOOD GAS ORDERABLES Final Result [facility] [address] [place] [address] * HEPATITIS C AB W REFLEX TO HCV RNA BY PCR (07/30/2019 11:59 EST) Hep C Antibody Negative Negative 08/02/2019 11:[address] [facility] Blood VENOUS BLOOD / Unknown 07/30/2019 11:59 EST 07/30/2019 16:45 EST us Provider Unknown MD CHEMISTRY & BLOOD GAS ORDERA BLES Final Result [facility] [address] [place] [address] from Last 3 Months or Most Recently Relevant to Health Maintenance Insurance MEDICAID ACO [place] Advance Directives For more information, please contact: [phone] Documents on File Type Date Recorded Patient Train Station Server Expl anation Guardianship 06/25/2024 9:[address] [place] [address], [facility] Appointment of Gu * Full Code (Latest Code Status on File) Date Activated Date Inactivated Comments 02/24/2011 22:28 02/25/2011 20:41 Care Teams Affirmative Action Specialist Relationship Specialty Start Date End Date Ren Vaz MD [address] [place] [address] PCP - General 09/30/18
--- OUTSIDE RECORDS SUMMARY | 2024-07-30 02:55 | XMS_ITS | Encounter Summary ---
Author Organization [facility] Address [address] [place] [address] Care Team Providers Care Machine Sign Writer Name Role Phone Ren Vaz MD Primary Care Provider [phone] Reason for Visit * Reason Onset Date Comments Labs Only 04/11/2020 Encounter Details Date Type Department Care Team (Late st Contact Info) Description 04/11/2020 Telephone [facility] Endocrinology - [facility] [address] [place] [address] Wilder Zaidi, DO [address] [facility] [address] [place] [address] Labs Only Social History Tobacco [...] have been electronically faxed 04/11/20 15:27 to [facility] at [phone]. Lab orders entered by Dr. Zaidi have been electronically faxed 04/11/20 15:31 to Outpatient Lab at [phone]. LESLEY COURTNEY RN 04/11/2020 15:31 * Telephone Encounter - Lesley Jeffrey RN - 04/11/2020 1229 EDT Returning call 04/11/20 12:29 Spoke to : Mavis Per caller, patient is to have sodium checked every 3 months. Caller does not have the order. Would need the order faxed to her or hospital. This automotive service writer will be faxing it to both fax numbers once we have the answer from the provider. Mavis's fax number : [phone] [facility] [place] [facility] : [phone] (fax) LESLEY COURTNEY RN 04/11/2020 12:33 * Telephone Encounter - Mirna Ervin - 04/11/2020 1215 EDT [facility] is calling to ask if orders have been put in for patient's blood work. Patient is there now. Manager Commodities tried to reach nurse but was unable. documented in this encounter Plan of Treatment Upcoming Encounters Date Type Department Care Team (Late st Contact Info) Description 10/01/2024 13:40 EDT Office Visit [facility] Endocrinology - [facility] [address], [place] [id number] Wilder Zaidi, [address] [facility] [address] [place] [address] documented as of this encounter Visit Diagnoses Diagnosis 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HCC-CMS)- Primary Panhypopituitarism documented in this encounter Care Teams Machine Sign Writer Relationship Specialty Start Date End Date Ren Vaz MD [address] [place] [address] PCP - General 09/30/18 documented as of this encounter
--- OUTSIDE RECORDS SUMMARY | 2024-07-30 02:55 | XMS_ITS | Encounter Summary ---
Author Organization [facility] Address [address] [place] [address] Care Team Providers Care Concrete Stone Fabricator Name Role Phone Ren Vaz MD Primary Care Provider [phone] Reason for Visit * Reason Onset Date Comments Referral Request 01/04/2020 referral for Bl ood draw in home Encounter Details Date Type Department Care Team (Late st Contact Info) Description 01/04/2020 Telephone [facility] Endocrinology - [facility] [address] [place] [address] Wilder Zaidi, DO [address] [facility] [address] [place] [address] Referral Request (referral for Blood [...] orders from 11/26/2019 electronically faxed to : [facility] Fax number : [phone] LESLEY COURTNEY RN 01/04/2020 11:42 * Telephone Encounter - Robin Baidr - 01/04/2020 0959 EDT Please send referral to [facility] for patient to have a blood draw. His Guardian is requesting he doesn't go into the hospital. He needs blood drawn by end january. . documented in this encounter Plan of Treatment Upcoming Encounters Date Type Department Care Team (Late st Contact Info) Description 10/01/2024 13:40 EDT Office Visit [facility] Endocrinology - [address] [address] Wilder Zaidi, DO [address] [facility] [address] [place] [address] documented as of this encounter Visit Diagnoses Not on filedocumented in this encounter Care Teams Concrete Stone Fabricator Relationship Specialty Start Date End Date Ren Vaz MD [facility] [place] [address] PCP - General 09/30/18 documented as of this encounter
--- OUTSIDE RECORDS SUMMARY | 2024-07-30 02:55 | XMS_ITS | Encounter Summary ---
Author Organization [facility] Address [address] [place] [address] Care Team Providers Care Hand Fretted Instrument Maker Name Role Phone Ren Vaz MD Primary Care Provider [phone] Reason for Visit * Reason Comments Pituitary Abnormality Encounter Details Date Type Department Care Team (Latest Contact Info) Description 11/26/2019 11:00 EDT Telemedicine [facility] Endocrinology - [facility] [address] [place] [address] Wilder Zaidi, DO [address] [facility] [address] [place] [address] Secondary adrenal insufficiency (HCC-CMS) (Primary [...] currently living in his own home in [place], [place]. He has 2 caretakers are with [...] imtiaz. Unfortunately, Miguel Angel was hospitalized at [facility] from 09/02/2017 until 03/12/2018 due to [...] as his follow- up endocrinology visit at [facility]. ?? With regards to his secondary [...] the Centers for Disease Control and The [place] Department of Health we are practicing social distancing to protect both our patients and our providers during the COVID-19 pandemic. ??LABORATORY DATA: 1. Pending at time of dictation STUDIES: 1. Repeat DEXA scan performed on 06/21/[address] [facility] showed a Z score of -2.3 [...] receive his endocrine care here at the [facility] despite living in [place]. However, if he is hospitalized he will likely be sent to [facility] and I be happy to coordinate with our endocrinology group as needed. 8. Given his testosterone deficiency, secondary to insufficiency, and history of fracture, I think a consultation to the metabolic bone clinic to discuss bone health and subsequent need for possible treatment is prudent. This will be done here at the [facility] endocrine clinic. documented in this encounter Plan of Treatment Upcoming Encounters Date Type Department Care Team (Late st Contact Info) Description 10/01/2024 13:40 EDT Office Visit [facility] Endocrinology - [address] [address] Wilder Zaidi DO [address] [place] [address] [address] [place] [phone] documented as of this encounter Visit Diagnoses Diagnosis Secondary adrenal insufficiency (HCC-CMS)- Primary Glucocorticoid deficiency 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HCC-CMS) Diabetes insipidus 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HCC-CMS) Panhypopituitarism Gonadotropin deficiency (HCC-CMS) Other anterior pituitary disorders Secondary hypothyroidism Other specified acquired hypothyroidism 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HCC-CMS) Pituitary dwarfism Fracture Closed fracture of unspecified bone documented in this encounter Care Teams Hand Fretted Instrument Maker Relationship Specialty Start Date End Date Ren Vaz MD [address] [facility] [place] [address] PCP - General 09/30/18 documented as of this encounter
--- OUTSIDE RECORDS SUMMARY | 2024-07-30 02:55 | XMS_ITS | Continuity of Care Document ---
Author Organization [place] - [facility] Address [address] [place] [address] Care Team Providers Care Fleet Dispatch Manager Name Role Phone [facility] Psychiatrist Assessment No assessment recorded. Plan of Treatment Reminders Order Date Submit Date Provider Last Modified By Organization Details Last Modified Time Details Appointments None recorded. Lab BMP, serum or plasma 2024 025 [facility] (Registration ), [address] [place] [address] [place], [address], 5 06:51:24 Referral dermatolog ist referral - Pt 34-M, developmen tally disabled, non-verbal , with history of chronic excoriatio n of skin leading to frequent superficia l infection, currently treating for abscess on left posterior thigh with cephlex and improving, being referred for dermatolog y care. 2024 025 Replaced by [facility], [address], [place], [address], 5 08:45:20 Procedures None recorded. Surgeries None recorded. Imaging None recorded. Medication Orders cephalexin 500 mg capsule 2024 025 [facility] [place], [address], 05:42:52 Patient TargetsNo targets recorded. Patient Instructions Encounter Date Encounter Id Patient Instructions Last Modified By Organization Details Last Modified Time 07/22/2024 [id number] As written on your visit sheet. Not available 07/22/2024 11:12:36 Reason for Referral Fluoroscope Operator Referral for C hronic excoriation of skin Pt 34-M, developmentally disabled, non-verbal, with history of chronic excoriation of skin leading to frequent superficial infection, currently treating for abscess on left posterior thigh with cephlex and improving, being referred for dermatology care. Referring Physician: Jimob More, Family Medicine, Encounter Date: 07/22/2024 Problems Name Problem SNOMED Code Status Onset Date Resolution Date Notes Provider Name and Address Organization Details Recorded Time Hyponatr emia 25109536 Active [address], [place], [address] , [facility] 4 12:31:17 Mass lesion of brain 633132810 Active [address], [facility] [address] , [facility] 4 17:54:43 Abscess of skin and/or subcutan eous tissue 29708579 Active [address], [facility] [address] , [facility] 5 10:14:30 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 2016 Problem Code: H47.20; Problem Code Type: ICD-10; Not Available Replaced by [facility] 3 04:21:52 Gastriti s 8135641 Active 2016 Problem Code: K29.70; Problem Code Type: ICD-10; Not Available Replaced by [facility] 3 04:21:52 Urinary incontin ence 742003445 Active 2016 Problem Code: R32; Problem Code Type: ICD-10; Not Available Replaced by [facility] 3 04:21:52 Senile osteopor osis 12805026 Active 201602/22/20 21 - Comments only - [...] M81.0; Problem Code Type: ICD-10; Not Available [facility] 3 04:21:52 Pure hypergly ceridemi a 869843762 Active 201602/27/20 22 - Comments only - Ren Vaz MD - tolerati ng statin. However with elevated LFTs could consider cutting statin dose to see if helps LFTs. Problem Code: E78.1; Problem Code Type: ICD-10; Not Available [facility] 3 04:21:53 History of benign neoplasm of brain 592516208 Active 2016 Problem Code: Z86.011; Problem Code Type: ICD-10; Not Available [facility] 3 04:21:53 Insomnia 482164005 Active 201612/09/19 19 - Deterior ated - Subha Colon MONITORING SPECIALIST - Currentl y on trazodon e, not effectiv e. See above. 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 Cycloben zaprine no longer effectiv e. Will change to baclofen 10mg TID. manager roofing will call in 1-2 weeks to report effectiv eness. Pain may be influenc ing increase d agitatio n and poor sleep. Problem Code: M24.50; Problem Code Type: ICD-10; Not Available [facility] 3 04:21:53 Amnesia 61321762 Active 2016 Problem Code: R41.3; Problem Code Type: ICD-10; Not Available [facility] 3 04:21:53 Hemipleg ia 23345648 Active 201602/22/20 21 - Comments only - Ren Vaz MD - Encourag ing increase in activty. I agree with PT. Problem Code: G81.90; Problem Code Type: ICD-10; Not Available Replaced by [facility] 3 04:21:54 Red blood cell finding 137599841 Active 2017 Problem Code: R71.8; Problem Code Type: ICD-10; Not Available [facility] 3 04:21:54 Retentio n of urine 127810154 Active 201805/18/20 19 - Comments only - Subha Colon APRN - Suscepti ble to UTIs. They will return urine sample for testing. Problem Code: R33.9; Problem Code Type: ICD-10; Not Available Replaced by [facility] 3 04:21:54 Restless ness and agitatio n 287145007 Active 2018 Problem Code: R45.1; Problem Code Type: ICD-10; Not Available [facility] 3 04:21:54 Seizure 62007326 Active 2018 Problem Code: R56.9; Problem Code Type: ICD-10; Not Available [facility] 3 04:21:54 Dyspnea 404579497 Completed 201806/01/2019 Problem Code: R06.02; Problem Code Type: ICD-10; Not Available Replaced by [facility] 3 04:21:54 Acute upper respirat ory infectio n 43068978 Completed 201806/01/2019 05/18/20 19 - Comments only - Subha Colon APRN - With low-grad e fever, producti ve cough, wheezing . Pt is quite suscepti ble to both respirat ory and urinary tract infectio ns. Will start doxycycl ine to cover for possible pneumoni a. Advised to increase use of nebulize r to TID. Problem Code: J06.9; Problem Code Type: ICD-10; Not Available Replaced by [facility] 3 04:21:55 Steatosi s of liver 276587476 Active 201903/03/20 23 - Comments only - Ren Vaz MD - Improved last year with weight loss. REcheck CBC/CMP with labs Problem Code: K76.0; Problem Code Type: ICD-10; Not Available [facility] 3 04:21:55 Adult health [...] Z00.00; Problem Code Type: ICD-10; Not Available [facility] 3 04:21:55 Bradycar hossein 35704089 Completed 201909/01/2019 08/25/19 20 - Comments only - Ren Vaz MD - Resolved after stopping metoprol ol. BP still okay, no hard indicati on for metoprol ol, so continue off this medicati on. Problem Code: R00.1; Problem Code Type: ICD-10; Not Available [facility] 3 04:21:55 Urticari a 314897105 Active 201908/14/19 21 - Comments only - Ren Vaz MD - irmpoved . continue higher dose H2 gui for now. Problem Code: L50.9; Problem Code Type: ICD-10; Not Available Replaced by [facility] 3 04:21:55 Localize d eruption of skin 428550283 Completed 201904/26/2020 04/05/20 20 - Comments only - Ricarda Sanchez WATER QUALITY TECHNICIAN - Unclear etiology : possibly contact urticari [...] R21; Problem Code Type: ICD-10; Not Available Replaced by [facility] 3 04:21:56 Anemia 120404993 Active 202008/20/19 22 - Comments only - Ren Vaz MD - This has been a stable chronic issue. We discusse d I iron stores actually normal, low TIBC suggests chronic disease cause. Continue to follow. Problem Code: D64.9; Problem Code Type: ICD-10; Not Available [facility] 3 04:21:56 Hypo-osm olality and or hyponatr emia 101151075 Active 202002/22/20 21 - Comments only - Ren Vaz MD - Doing well on fluid restrict ion, continue . Problem Code: E87.1; Problem Code Type: ICD-10; Not Available [facility] 3 04:21:56 Obesity 615119567 Active 2020 Problem Code: E66.9; Problem Code Type: ICD-10; Not Available [facility] 3 04:21:56 Furuncle of left axilla 43788263694 687939 Active 202003/14/20 21 - Comments only - [...] L02.422; Problem Code Type: ICD-10; Not Available [facility] 3 04:21:56 Trichoti manishaia 13554138 Active 202102/27/20 22 - Comments only - Ren Vaz MD - Discusse d skin care, defer medicati on adjustme nts to psych Problem Code: F63.3; Problem Code Type: ICD-10; Not Available Replaced by [facility] 3 04:21:56 Diabetes insipidu s 67087489 Active 201605/24/20 19 - Comments only - Subha Colon APRN - Will recheck sodium level. Problem Code: E23.2; Problem Code Type: ICD-10; Not Available Replaced by [facility] 3 04:21:57 Hypopitu itarism 05142169 Active 2016 Problem Code: E23.0; Problem Code Type: ICD-10; Not Available Replaced by [facility] 3 04:21:57 Hypothyr oidism 91246801 Active 201602/22/20 21 - Comments only - Ren Vaz MD - FT4 at goal, continue current supplume ntation Problem Code: E03.8; Problem Code Type: ICD-10; Not Available Replaced by [facility] 3 04:21:57 History and physical examinat ion, administ rative Completed 201807/09/2019 Problem Code: Z02.89; Problem Code Type: ICD-10; Not Available Replaced by [facility] 3 04:21:58 Disorder of eye 038828045 Completed 201804/05/2019 Problem Code: H44.89; Problem Code Type: ICD-10; Not Available Replaced by [facility] 3 04:21:59 Pain of left knee joint 45252332773 4107 Completed 201707/09/2019 Problem Code: M25.562; Problem Code Type: ICD-10; Not Available Replaced by [facility] 3 04:21:59 Bleeding 985201539 Completed 202002/21/2021 Problem Code: R58; Problem Code Type: ICD-10; Not Available Replaced by [facility] 3 04:21:59 Fever 232628945 Completed 201804/05/2019 Problem Code: R50.9; Problem Code Type: ICD-10; Not Available Replaced by [facility] 3 04:21:59 Family history of diabetes mellitus 505293642 Completed 201607/09/2019 Problem Code: Z83.3; Problem Code Type: ICD-10; Not Available Replaced by [facility] 3 04:22:00 Fever 063789644 Completed 201805/24/2019 Problem Code: R50.9; Problem Code Type: ICD-10; Not Available Replaced by [facility] 3 04:22:00 Gastroes ophageal reflux disease without esophagi tis 430034203 Completed 201604/02/2023 Problem Code: K21.9; Problem Code Type: ICD-10; Not Available Replaced by [facility] 3 04:22:00 Wheezing 73649596 Completed 201709/18/2018 Problem Code: R06.2; Problem Code Type: ICD-10; Not Available Replaced by [facility] 3 04:22:00 High enzyme level in serum 617769451 Completed 201904/02/2023 02/27/20 22 - Comments only [...] R74.8; Problem Code Type: ICD-10; Not Available Replaced by [facility] 3 04:22:01 Body mass index 30+ - obesity 209963720 Completed 202004/02/2023 Problem Code: Z68.34; Problem Code Type: ICD-10; Not Available Replaced by [facility] 3 04:22:01 Disorder of intestin e 99836465 Completed 202008/14/2020 Problem Code: K63.9; Problem Code Type: ICD-10; Not Available Replaced by [facility] 3 04:22:01 Screenin g for disorder Completed 201809/18/2018 Problem Code: Z13.9; Problem Code Type: ICD-10; Not Available Replaced by [facility] 3 04:22:01 Spasm 87197581 Completed 201704/02/2023 08/25/19 20 - Comments only - Ren Vaz MD - Ongoing problem since CVA. Has neuro consult in october to consiide botox. For now try higher dose lorazepa m along with baclofen . Problem Code: R25.2; Problem Code Type: ICD-10; Not Available Replaced by [facility] 3 04:22:02 Pain of right knee joint 88746866530 4100 Completed 201704/30/2018 Problem Code: M25.561; Problem Code Type: ICD-10; Not Available [facility] 3 04:22:02 Cough 80695433 Completed 201709/08/2019 Problem Code: R05; Problem Code Type: ICD-10; Not Available [facility] 3 04:22:02 Iron deficien cy anemia 43376395 Completed 201704/02/2023 Problem Code: D50.8; Problem Code Type: ICD-10; NAKIA SANTOS [address], [place], [address] , [facility] 4 09:14:59 Counseli odalis Completed 201812/08/2018 Problem Code: Z71.89; Problem Code Type: ICD-10; Not Available Replaced by [facility] 3 04:22:03 Disorder of tooth developm ent 191234771 Completed 201808/14/2020 Problem Code: K00.9; Problem Code Type: ICD-10; Not Available [facility] 3 04:22:03 Hypocalc emia 1718333 Completed 201910/25/2019 Problem Code: E83.51; Problem Code Type: ICD-10; Not Available [facility] 3 04:22:03 Hyperosm olality and or hypernat remia 901359885 Completed 201908/14/2020 Problem Code: E87.0; Problem Code Type: ICD-10; Not Available [facility] 3 04:22:04 Testicul ar hypofunc tion 568972313 Completed 201604/02/2023 Problem Code: E29.1; Problem Code Type: ICD-10; Not Available Replaced by [facility] 3 04:22:04 Seasonal allergic rhinitis 405643538 Completed 201904/02/2023 10/25/19 20 - Comments only - Ren Vaz MD - try H1 block Problem Code: J30.2; Problem Code Type: ICD-10; Not Available Replaced by [facility] 3 04:22:05 Wheezing 04899247 Completed 201805/24/2019 Problem Code: R06.2; Problem Code Type: ICD-10; Not Available Replaced by [facility] 3 04:22:05 Seizure 35940554 Completed 201607/09/2019 Problem Code: R56.9; Problem Code Type: ICD-10; Not Available Replaced by [facility] 3 04:22:05 Chronic excoriat ion of skin 346954145 Active [address], [facility] [address] , [facility] 4 09:12:56 Non-alco holic fatty liver disease Active [address], [facility] [address] , [facility] 4 09:14:30 Iron deficien cy anemia 20710569 Active 2023 Problem Code: D50.8; Problem Code Type: ICD-10; [address], [place], [address] , [facility] 4 09:14:59 Pruritic disorder 900362839 Active [address], [facility] [address] , [facility] 4 09:21:10 Seizure disorder 473866529 Active [address], [place], [address] , [facility] 4 10:59:32 Finding of frequenc y of urinatio n 985737373 Active [address], [place], [address] , [facility] 4 11:23:00 Notes:*Problem Name: Blindne ss - both eyes *Problem Status: active *Comments: *Problem Code: H54.0 *Problem Code Type: ICD-10 *Note Date: 11/11/2016 Problem Notes None recorded. Medical Equipment None Reported. Allergies Allergen ID Allergen Name Allergen Category Reaction Reaction Severity Criticality Documentation Date Start Date Code Code System Note Provider Name and Address Organization Details Recorded Time 18818 Lopid medicatio n Not available Not available Not available 05/04/2024 9 RxNorm MALOU Martinez, [facility] 4 10:58:41 Medications Name Sig Start Date [...] every 8 hours by oral route for 5 days. 2024 active Not Available Not Available [...] DateTime 5 167.157 4 cm 35.1 kg/m2 69839.3 9 g 97.3 [degF] 100 % 100 % 92 /min 132 mm[Hg] 72 mm[Hg] KRISTYN SINGH MA [facility] 5 10:30:05 Social History Question Answer Notes LastModified by Organizat ion Details LastModified Time Tobacco Smoking Status Never Smoker MALOU Martinez, [facility] 05/04/2024 11:00:43 What Was The Date Of Your Most Recent Tobacco Screening? 05/04/2024 [email or web address] Information not available 05/04/2024 Has Tobacco Cessation Counseling Been Provided? Yes [email or web address] Information not available 05/04/2024 On What Date Was Tobacco Cessation Counseling Provided? 05/04/2024 [email or web address] Information not available 05/04/2024 Sex: Male Functional Status None recorded. Mental Status None recorded. Family History Nothing Reported Notes:*Problem: Mom had trever l failure Diabetes in the family Medical History No medical history recorded. Immunizations Vaccine Type Date Status Note Provider Nam e and Address Organization Details Recorded Time MMR 0 completed Not Available Replaced by [facility] 05/16/2023 04:39:45 MMR 2 completed Not Available Replaced by [facility] 05/16/2023 04:39:46 Tdap 1 completed Not Available [facility] 05/16/2023 04:39:47 Tdap 1 completed Not Available Replaced by [facility] 05/16/2023 04:39:48 Influenza, split virus, quadrivalent, PF 9 completed Not Available Replaced by [facility] 05/16/2023 04:39:48 Hib, unspecified formulation 1 completed Not Available Replaced by [facility] 05/16/2023 04:39:48 Hib, unspecified formulation 1 completed Not Available Replaced by [facility] 05/16/2023 04:39:49 Hib, unspecified formulation 2 completed Not Available Replaced by [facility] 05/16/2023 04:39:49 Hib, unspecified formulation 1 completed Not Available Replaced by [facility] 05/16/2023 04:39:49 DTaP 1 completed Not Available Replaced by [facility] 05/16/2023 04:39:50 DTaP 1 completed Not Available Replaced by [facility] 05/16/2023 04:39:50 DTaP 6 completed Not Available Replaced by [facility] 05/16/2023 04:39:50 DTaP 1 completed Not Available Replaced by [facility] 05/16/2023 04:39:50 DTaP 2 completed Not Available Replaced by [facility] 05/16/2023 04:39:50 COVID-19, mRNA, LNP-S, PF, 100 mcg/0.5mL dose or 50 mcg/0.25mL dose 1 completed Not Available Replaced by [facility] 05/16/2023 04:39:50 COVID-19, mRNA, LNP-S, PF, 100 mcg/0.5mL dose or 50 mcg/0.25mL dose 2 completed Not Available Replaced by [facility] 05/16/2023 04:39:51 SARS-COV-2 (COVID-19) vaccine, UNSPECIFIED 1 completed Not Available Replaced by [facility] 05/16/2023 04:39:52 SARS-COV-2 (COVID-19) vaccine, UNSPECIFIED 1 completed Not Available [facility] 05/16/2023 04:39:52 Hep B, unspecified formulation 3 completed Not Available [facility] 05/16/2023 04:39:52 Hep B, unspecified formulation 3 completed Not Available [facility] 05/16/2023 04:39:52 Hep B, unspecified formulation 3 completed Not Available [facility] 05/16/2023 04:39:52 influenza, unspecified formulation 4 completed Not Available Replaced by [facility] 05/16/2023 04:39:53 polio, unspecified formulation 1 completed Not Available [facility] 05/16/2023 04:39:53 polio, unspecified formulation 1 completed Not Available Replaced by [facility] 05/16/2023 04:39:54 polio, unspecified formulation 6 completed Not Available [facility] 05/16/2023 04:39:54 polio, unspecified formulation 1 completed Not Available Replaced by [facility] 05/16/2023 04:39:54 polio, unspecified formulation 2 completed Not Available [facility] 05/16/2023 04:39:54 rabies, unspecified formulation 5 completed Not Available [facility] 05/16/2023 04:39:55 rabies, unspecified formulation 5 completed Not Available [facility] 05/16/2023 04:39:55 Influenza, split virus, trivalent, PF [address], [place], [address], [facility]. 06/29/2024 17:51:39 Influenza, split virus, quadrivalent, PF 3 completed Not Available Replaced by [facility] 07/18/2023 05:33:06 COVID-19, mRNA, LNP-S, PF, kota-sucrose, 30 mcg/0.3 mL 3 completed Not Available [facility] 07/18/2023 05:33:07 Past Encounters Encounter ID Performer Location Encounter Start Date Encounter Closed Date Diagnosis/Indication Diagnosis SNOMED-CT Code Diagnosis ICD10 Code Diagnosis Note [id number] NAKIA SANTOS [facility] [address] [place] [address] 06/28/2024 11:23:42 06/28/2024 12:54:45 Hyponatremia 88177862 E87.1 will recheck this lab. Currently following 2.5 L fluid restrictio n. No signs of excess fluid status on exam. Pt. at baseline from mental status viewpoint. Medlist reconciled . Active or passive immunization 363003907 Z23 Mass lesion of brain 422 380145 R22.0 Pt. to f/u with neurosurge ry for evolving 3.5cm mass [id number] NAKIA SANTOS [facility] [address] [place] [address] 07/15/2024 09:44:29 07/15/2024 10:32:19 Abscess of skin and/or subcutaneous tissue 34938637 L02.91 Pt. with abscess, about 5x10 cm along eliptical axis of left posterolat eral thigh, warm, ttp. Will start antibiotic s given pt. propensity to pick and current discomfort . Referred to wound care clinic for this and the other smaller ulceration on his right upper thigh. [id number] NAKIA SANTOS [facility] [address] [place] [address] 07/22/2024 10:14:28 07/22/2024 11:15:42 Abscess of skin and/or subcutaneous tissue 79290397 L02.91 Abscess area is improved with less redness circumfere ntially. Will continue Cephalexin for another 5 days. If infection worsens immediatel y after that, he may need GS referral for surgical excision/d rainage given the pt. comorbidit ies this would be a risk in the primary care office. Chronic ex coriation of skin 854821012 T14.8XXA We will Rx pplx mupiricin in case of any signs of infection related to chronic picking at scabs. Hyponatremia 42271126 E8 7.1 will recheck this lab. Currently following 2.5 L fluid restrictio n. No signs of excess fluid status on exam. Pt. at baseline from mental status viewpoint Health Concerns Section Related Observation LastModified by Organization Detai ls LastModified Time None Recorded Concern Status LastModified by Organization Details LastModified Time None Recorded Payers Encounter Date Sequence Insurance Name Policy Number Policy [employer] Covered Member ID Soliman Member ID Guarantor Name 07/22/2024 1 [employer] ([employer]ICAID) Miguel Angel Burgos [id number] Miguel Angel Burgos Notes Date Note Type Note Provider Name and Address Organization Details Recorded Time 07/22/2024 text/html Pt, 34-M, her fo r f/u of abscess with surrounding area of cellutlits he was seen here for 07/15/2024. Caregiver reports abscess improving, but not resolved. Denies fevers, spreading redness, increased pain, but they do state that if they talk about it pt. will become excited. He was referred to Wound Care at 07/15/2024 appointment, but does not have appt till 08/02/2024.Pt. caregiver requesting referral to Dermatology for management of chronic skin excoriations. NAKIA SANTOS [address], [place], [address], [facility]. 07/23/2024 05:45:07
--- OUTSIDE RECORDS SUMMARY | 2024-07-30 02:55 | XMS_ITS | Encounter Summary ---
Author Organization [facility] Address [address] [place] [address] Care Team Providers Care Bowling [employer] Grader And Marker Name Role Phone Ren Vaz MD Primary Care Provider [phone] Encounter Details Date Type Department Care Team (Late st Contact Info) Description 07/30/2019 Lab Requisition [facility] Pathology & Laboratory Medicine - [address] [address] Unknown, Provider, Social History Tobacco Use Types [...] [facility] Endocrinology - [place] [address] [place], [place] [id number] Wilder Zaidi, [address] [place] [address] documented as of this encounter Procedures Procedure Name Priority Date/Time Associated Diagnosis Comments CALCIUM, IONIZED Routine 07/30/2019 11:5 9 EST documented in this encounter Results * CALCIUM, IONIZED (07/30/2019 11:59 EST) Calcium, Ionized 1.12 1.12 - 1.32 mmol/L 07/30/2019 16:51 EST [facility] Comment:Testing performed on heparinized plasma. Results may be biased 5% lower than that of whole blood. Blood VENOUS BLOOD / Unknown 07/30/2019 11:59 EST 07/30/2019 16:41 EST us Provider Unknown CHEMISTRY & BLOOD GAS ORDERA BLES Final Result Performing Organization Address City/State/[facility] Co de Phone Number [facility] [address] [place] [address] documented in this encounter Visit Diagnoses Not on filedocumented in this encounter Care Teams Bowling [employer] Grader And Marker Relationship Specialty Start Date End Date Ren [place] [address] PCP - General 09/30/18 documented as of this encounter
--- OUTSIDE RECORDS SUMMARY | 2024-07-30 02:55 | XMS_ITS | Data Portability ---
Author Organization [place] [facility] Address [address] [place] [address] Care Team Providers Care Wheelabrator Operator Name Role Phone [facility] Psychiatrist Assessment No assessment recorded. Plan of Treatment Reminders Order Date Submit Date Provider Last Modified By Organization Details Last Modified Time Details Appointments None recorded. Lab lipids, total, serum 2023 024 [email or web address] (Registration ), [address] [place] [address] [place], [address], 4 14:26:44 CBC w/ auto diff 2023 024 [email or web address] [facility] (Registration ), [address] [place] [address] [place], [address], 4 16:55:12 C-reactive protein, quantitati ve, serum or plasma 2023 024 [email or web address] (Registration ), [address] [place] [address] [place], [address], 4 14:26:43 ESR (erythrocy te sedimentat ion rate), blood 2023 024 [email or web address] (Registration ), [address] [place] [address] [place], [address], 4 14:26:44 CMP, serum or plasma - 1 SST, 1 Manley, 1 LAV 2023 024 SHERRILL [facility] (Registration ), [address] [place] [address] Dr, [place], [address], 4 16:36:05 urinalysis , dipstick [address] [facility] ([facility]), [address] [place] [address] [facility] [place], [address], 4 14:26:43 TSH, serum, reflex free T4 [address] [facility] (Registration ), [address] [place] [address] [place], [address], 4 14:26:44 BMP, serum or plasma - 1 SST [address] [facility] (Registration ), [address] [place] [address] [place], [address], 4 09:25:07 BMP, serum or plasma 2024 025 [facility] (Registration ), [address] [place] [address] , [place], [address], 5 06:51:24 Referral wound care referral - Pt, 34-M, history of disordered speech and developeme nt, with right sided upper thigh wound, likely pressure related from recent hospitaliz ation and new left posterolat eral thigh abscess being referred for wound care mgmt. I am starting patient on Cephlex for the left side abcess as it is painful and warm to the touch for 1-week duration and will see him back in clinic. 2024 025 ATHENAFAX [facility], [address] [place] [address] , [address], [place], [address], 5 08:45:22 dermatolog ist referral - Pt 34-M, developmen tally disabled, non-verbal , with history of chronic excoriatio n of skin leading to frequent superficia l infection, currently treating for abscess on left posterior thigh with cephlex and improving, being referred for dermatolog y care. 2024 [facility]25 [facility] [address], [place], [address], 5 08:45:20 Procedures None recorded. Surgeries None recorded. Imaging None recorded. Medication Orders quetiapine ER 200 mg tablet,ext ended release 24 hr 2023 024 [place] [id number] [address] [place], [address], 4 12:23:09 cephalexin 500 mg capsule 2023 024 [place] [id number] [address] [place], [address], 4 13:34:22 cephalexin 500 mg capsule 2024 025 [place] [id number] [address] [place], [address], 5 10:28:11 cephalexin 500 mg capsule 2024 025 [facility] [place], [address], 5 05:42:52 Patient TargetsNo targets recorded. Patient Instructions Encounter Date Encounter Id Patient Instructions Last Modified By Organization Details Last Modified Time 05/04/2024 [id number] cellulitis: care instructions [email or web address] Not available 05/04/2024 11:24:50 07/15/2024 [id number] I have referred Miguel Angel to the [...] you have other concerns please notify us. [email or web address] Not available 07/15/2024 10:30:34 07/22/2024 [id number] As written on your visit sheet. [email or web address] Not available 07/22/2024 11:12:36 Reason for Referral Pt, 34-M, history of [...] see him back in clinic. 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 Referring Physician: Dottie Gardner [facility], Encounter Date: 07/22/2024 Results Created Date Observation Date Name Description Value Unit Range Abnormal Flag Note LastModifiedBy Organization Detail LastModifiedTime 03/05/2003/05/2024 COMPL ETE BLOOD COUNT W/DIF F WBC 6.97 10_3/ uL 4.4-10 .8 normal Not Available [address] [place] [place], [address] 03/05/2024 16:12:09 03/05/20 24 03/05/2024 COMPL ETE BLOOD COUNT W/DIF F RBC 5.23 10_6/ uL 4.36-5 .78 normal Not Available [address] [place], [address] 03/05/2024 16:12:09 03/05/20 24 03/05/2024 COMPL ETE BLOOD COUNT W/DIF F HGB 13.0 g/dL 13.5-1 7.5 low Not Available [address] [place], [address] 03/05/2024 16:12:09 03/05/20 24 03/05/2024 COMPL ETE BLOOD COUNT W/DIF F HCT 40.3 % 40.0-5 0.0 normal Not Available [address] [place], [address] 03/05/2024 16:12:09 03/05/20 24 03/05/2024 COMPL ETE BLOOD COUNT W/DIF F MCV 77 fL 80-95 low Not Available Barrie gomez [address] [place], [address] 03/05/2024 16:12:09 03/05/20 24 03/05/2024 COMPL ETE BLOOD COUNT W/DIF F MCH 24.9 pg 27.0-3 3.0 low Not Available [address] [place], [address] 03/05/2024 16:12:09 03/05/20 24 03/05/2024 COMPL ETE BLOOD COUNT W/DIF F MCHC 32.3 % 32.0-3 6.0 normal Not Available [address] [place] [place], [address] 03/05/2024 16:12:09 03/05/20 24 03/05/2024 COMPL ETE BLOOD COUNT W/DIF F RDW 15.7 % 11.8-1 4.1 high Not Available [address] [place], [address] 03/05/2024 16:12:09 03/05/20 24 03/05/2024 COMPL ETE BLOOD COUNT W/DIF F platelet count 237 10_3/ uL 130-40 0 normal Not Available [address] [place], [address] 03/05/2024 16:12:09 03/05/20 24 03/05/2024 COMPL ETE BLOOD COUNT W/DIF F MPV 10.4 fL 8.0-11 .0 normal Not Available [address] [place] [place], [address] 03/05/2024 16:12:09 03/05/20 24 03/05/2024 COMPL ETE BLOOD COUNT W/DIF F neutrophils % 62.7 % Not Available Santiago cantu [address] [place], [address] 03/05/2024 16:12:09 03/05/20 24 03/05/2024 COMPL ETE BLOOD COUNT W/DIF F lymphocytes % 25.3 % Not Available [address] [place], [address] 03/05/2024 16:12:09 03/05/20 24 03/05/2024 COMPL ETE BLOOD COUNT W/DIF F monocytes % 9.3 % Not Available [address] [place], [address] 03/05/2024 16:12:09 03/05/20 24 03/05/2024 COMPL ETE BLOOD COUNT W/DIF F eosinophils % 1.9 % Not Available [address] [place], [address] 03/05/2024 16:12:09 03/05/20 24 03/05/2024 COMPL ETE BLOOD COUNT W/DIF F basophils % 0.4 % Not Available [address] [place], [address] 03/05/2024 16:12:09 03/05/20 24 03/05/2024 COMPL ETE BLOOD COUNT W/DIF F immature grans % 0.4 % Not Available [address] [place], [address] 03/05/2024 16:12:09 03/05/20 24 03/05/2024 COMPL ETE BLOOD COUNT W/DIF F nucleated RBC 0.0 % 0.0-0. 3 normal Not Available [address] [place] [place], [address] 03/05/2024 16:12:09 03/05/20 24 03/05/2024 COMPL ETE BLOOD COUNT W/DIF F absolute neutrophil count 4.37 10_3/ uL 1.2-6. 7 normal Not Available [address] [place] [place], [address] 03/05/2024 16:12:09 03/05/20 24 03/05/2024 COMPL ETE BLOOD COUNT W/DIF F absolute lymphocyte count 1.76 10_3/ uL 1.2-3. 4 normal Not Available [address] [place] [place], [address] 03/05/2024 16:12:09 03/05/20 24 03/05/2024 COMPL ETE BLOOD COUNT W/DIF F absolute monocyte count 0.65 10_3/ uL 0.1-0. 8 normal Not Available [address] [place] [place], [address] 03/05/2024 16:12:09 03/05/20 24 03/05/2024 COMPL ETE BLOOD COUNT W/DIF F absolute eosinophil count 0.13 10_3/ uL 0.0-0. 7 normal Not Available [address] [place], [address] 03/05/2024 16:12:09 03/05/20 24 03/05/2024 COMPL ETE BLOOD COUNT W/DIF F absolute basophil count 0.03 10_3/ uL 0.0-0. 2 normal Not Available [address] [place] [place], [address] 03/05/2024 16:12:09 03/05/20 24 03/05/2024 ESR ESR 2 mm/HR 0-15 normal Not Available [address] [place], [address] 03/05/2024 16:13:06 03/05/20 24 03/05/2024 COMPR EHENS BEBE METAB OLIC PANEL calcium 9.3 mg/dL 8.5-10 .1 normal Not Available [address] [place], [address] 03/05/2024 17:45:19 03/05/20 24 03/05/2024 COMPR EHENS BEBE METAB OLIC PANEL glucose 88 mg/dL 74-106 normal Not Available Barrie gomez [address] [place], [address] 03/05/2024 17:45:19 03/05/20 24 03/05/2024 COMPR EHENS BEBE METAB OLIC PANEL BUN 24 mg/dL 7-18 high Not Available Barrie gomez [address] [place], [address] 03/05/2024 17:45:19 03/05/20 24 03/05/2024 COMPR EHENS BEBE METAB OLIC PANEL creatinine 1.1 mg/dL 0.70-1 .30 normal Not Available [address] [place], [address] 03/05/2024 17:45:19 03/05/20 24 03/05/2024 COMPR EHENS [...] young er-ag ed adult s. Not Available [address] [place], [address] 03/05/2024 17:45:19 03/05/20 24 03/05/2024 COMPR EHENS BEBE METAB OLIC PANEL total protein 7.3 g/dL 6.4-8. 2 normal Not Available [address] [place], [address] 03/05/2024 17:45:19 03/05/20 24 03/05/2024 COMPR EHENS BEBE METAB OLIC PANEL albumin 4.1 g/dL 3.4-5. 0 normal Not Available [address] [place], [address] 03/05/2024 17:45:19 03/05/20 24 03/05/2024 COMPR EHENS BEBE METAB OLIC PANEL bilirubin, total 0.22 mg/dL 0.2-1. 0 normal Not Available [address] [place], [address] 03/05/2024 17:45:19 03/05/20 24 03/05/2024 COMPR EHENS BEBE METAB OLIC PANEL alk phos 124 U/L 46-116 high Not Available [address] [place], [address] 03/05/2024 17:45:19 03/05/20 24 03/05/2024 COMPR EHENS BEBE METAB OLIC PANEL sodium 142 mmol/ L 136-14 5 normal Not Available [address] [place], [address] 03/05/2024 17:45:19 03/05/20 24 03/05/2024 COMPR EHENS BEBE METAB OLIC PANEL potassium 3.7 mmol/ L 3.5-5. 1 normal Not Available [address] [place] [place], [address] 03/05/2024 17:45:19 03/05/20 24 03/05/2024 COMPR EHENS BEBE METAB OLIC PANEL chloride 106 mmol/ L 98-107 normal Not Available [address] [place] [place], [address] 03/05/2024 17:45:19 03/05/20 24 03/05/2024 COMPR EHENS BEBE METAB OLIC PANEL CO2 26.0 mmol/ L 21.0-3 2.0 normal Not Available [address] [place] [place], [address] 03/05/2024 17:45:19 03/05/20 24 03/05/2024 COMPR EHENS BEBE METAB OLIC PANEL anion gap 10.0 mmol/ L 3-11 normal Not Available [address] [place] [place], [address] 03/05/2024 17:45:19 03/05/20 24 03/05/2024 COMPR EHENS BEBE METAB OLIC PANEL AST 29 U/L 15-37 normal Not Available Barrie gomez [address] [place], [address] 03/05/2024 17:45:19 03/05/20 24 03/05/2024 COMPR EHENS BEBE METAB OLIC PANEL ALT 67 U/L 16-63 high Not Available Barrie gomez [address] [place], [address] 03/05/2024 17:45:19 03/05/20 24 03/05/2024 TSH (W/RE F FT4) TSH (w/ref FT4) < 0.01 uIU/m L 0.36-3 .74 low Not Available [address] [place], [address] 03/05/2024 16:36:06 03/05/20 24 03/05/2024 C-CHELSEA CTIVE PROTE IN C-reactive protein 0.52 mg/dL <or=0. 5 high Not Available [address] [place], [address] 03/05/2024 16:36:06 03/05/20 24 03/05/2024 TSH (W/RE F FT4) TSH (w/ref FT4) < 0.01 uIU/m L 0.36-3 .74 low Not Available [address] [place] [place], [address] 03/05/2024 17:05:17 03/05/20 24 03/05/2024 FREE T4 free T4 1.23 NG/dL 0.76-1 .46 normal Not Available [address] [place] [place], [address] 03/05/2024 17:45:21 03/05/20 24 03/05/2024 C-CHELSEA CTIVE PROTE IN C-reactive protein 0.52 mg/dL <or=0. 5 high Not Available [address] [place], [address] 03/05/2024 17:05:18 03/05/20 24 03/05/2024 LIPID 2 cholesterol 91 mg/dL <200 Not Available [address] [place], [address] 03/05/2024 17:45:20 03/05/20 24 03/05/2024 LIPID 2 triglyceride 117 mg/dL <150 Not Available [address] [place], [address] 03/05/2024 17:45:20 03/05/20 24 03/05/2024 LIPID 2 HDL cholesterol 40 mg/dL 40-60 Not Available [address] [place], [address] 03/05/2024 17:45:20 03/05/20 24 03/05/2024 LIPID 2 [...] 18 years or older . Not Available [address] [place], [address] 03/05/2024 17:45:20 03/05/20 24 03/05/2024 TSH (W/RE F FT4) TSH (w/ref FT4) < 0.01 uIU/m L 0.36-3 .74 low Not Available [address] [place] [place], [address] 03/05/2024 17:45:20 03/05/20 24 03/05/2024 C-CHELSEA CTIVE PROTE IN C-reactive protein 0.52 mg/dL <or=0. 5 high Not Available [address] [place] [place], [address] 03/05/2024 17:45:21 03/10/20 24 03/10/2024 BASIC METAB OLIC PANEL calcium 9.2 mg/dL 8.5-10 .1 normal Not Available [address] [place] [place], [address] 03/10/2024 17:04:57 03/10/20 24 03/10/2024 BASIC METAB OLIC PANEL glucose 86 mg/dL 74-106 normal Not Available Barrie gomez [address] [place], [address] 03/10/2024 17:04:57 03/10/20 24 03/10/2024 BASIC METAB OLIC PANEL BUN 17 mg/dL 7-18 normal Not Available Barrie gomez [address] [place], [address] 03/10/2024 17:04:57 03/10/20 24 03/10/2024 BASIC METAB OLIC PANEL creatinine 0.9 mg/dL 0.70-1 .30 normal Not Available [address] [place], [address] 03/10/2024 17:04:57 03/10/20 24 03/10/2024 BASIC METAB [...] young er-ag ed adult s. Not Available [address] [place] [place], [address] 03/10/2024 17:04:57 03/10/20 24 03/10/2024 BASIC METAB OLIC PANEL sodium 140 mmol/ L 136-14 5 normal Not Available [address] [place], [address] 03/10/2024 17:04:57 03/10/20 24 03/10/2024 BASIC METAB OLIC PANEL potassium 4.1 mmol/ L 3.5-5. 1 normal Not Available [address] [place], [address] 03/10/2024 17:04:57 03/10/20 24 03/10/2024 BASIC METAB OLIC PANEL chloride 104 mmol/ L 98-107 normal Not Available [address] [place], [address] 03/10/2024 17:04:57 03/10/20 24 03/10/2024 BASIC METAB OLIC PANEL CO2 27.6 mmol/ L 21.0-3 2.0 normal Not Available [address] [place], [address] 03/10/2024 17:04:57 03/10/20 24 03/10/2024 BASIC METAB OLIC PANEL anion gap 8.4 mmol/ L 3-11 normal Not Available [address] [place], [address] 03/10/2024 17:04:57 03/10/20 24 03/10/2024 URINA LYSIS color Yellow yellow Not Available Barrie gomez [address] [place], [address] 03/10/2024 18:14:16 03/10/20 24 03/10/2024 URINA LYSIS clarity Clear clear Not Available Barrie gomez [address] [place], [address] 03/10/2024 18:14:16 03/10/20 24 03/10/2024 URINA LYSIS specific gravity 1.020 1.005- 1.025 normal Not Available [address] [place], [address] 03/10/2024 18:14:16 03/10/20 24 03/10/2024 URINA LYSIS pH 5.5 5-8 normal Not Available Barrie gomez [address] [place], [address] 03/10/2024 18:14:16 03/10/20 24 03/10/2024 URINA LYSIS leukocyte esterase Negati ve negati ve Not Available [address] [place], [address] 03/10/2024 18:14:16 03/10/20 24 03/10/2024 URINA LYSIS nitrite Negati ve negati ve Not Available [address] [place], [address] 03/10/2024 18:14:16 03/10/20 24 03/10/2024 URINA LYSIS protein Negati ve mg/dL neg-tr mike Not Available [address] [place], [address] 03/10/2024 18:14:16 03/10/20 24 03/10/2024 URINA LYSIS glucose Negati ve mg/dL negati ve Not Available [address] [place], [address] 03/10/2024 18:14:16 03/10/20 24 03/10/2024 URINA LYSIS ketones Negati ve mg/dL negati ve Not Available [address] [place], [address] 03/10/2024 18:14:16 03/10/20 24 03/10/2024 URINA LYSIS urobilinogen 0.2 mg/dL up to 0.2 Not Available [address] [place], [address] 03/10/2024 18:14:16 03/10/20 24 03/10/2024 URINA LYSIS bilirubin Negati ve negati ve Not Available [address] [place], [address] 03/10/2024 18:14:16 03/10/20 24 03/10/2024 URINA LYSIS blood Negati ve negati ve Not Available [address] [place], [address] 03/10/2024 18:14:16 03/10/20 24 03/13/2024 FREE THYRO XINE INDEX thyroxine total 10.8 mcg/d L 4.5 - 11.7 Not Available [address] [place], [address] 03/15/2024 08:25:07 03/10/20 24 03/13/2024 FREE THYRO XINE INDEX thyroxine binding capacity 1.1 tbi 0.8 - 1.3 Not Available [address] [place], [address] 03/15/2024 08:25:07 03/10/20 24 03/13/2024 FREE THYRO XINE INDEX free thyroxine index 9.8 mcg/d L 4.8 - 12.7 Test Perfo rmed by: [facility] [address], [place] [address] Lab Direc tor: Rosita Oreilly nn Ph.D. ; [facility]# [id number] Not Available [address] [place], [address] 03/15/2024 08:25:07 03/10/2003/10/2024 BASIC METAB OLIC PANEL calcium 9.2 mg/dL 8.5-10 .1 normal Not Available [address] [place], [address] 03/16/2024 03:04:04 03/10/2003/10/2024 BASIC METAB OLIC PANEL glucose 86 mg/dL 74-106 normal Not Available Barrie gomez [address] [place], [address] 03/16/2024 03:04:04 03/10/2003/10/2024 BASIC METAB OLIC PANEL BUN 17 mg/dL 7-18 normal Not Available Barrie gomez [address] [place], [address] 03/16/2024 03:04:04 03/10/2003/10/2024 BASIC METAB OLIC PANEL creatinine 0.9 mg/dL 0.70-1 .30 normal Not Available [address] [place], [address] 03/16/2024 03:04:04 03/10/2003/10/2024 BASIC METAB OLIC PANEL [...] young er-ag ed adult s. Not Available [address] [place], [address] 03/16/2024 03:04:04 03/10/2003/10/2024 BASIC METAB OLIC PANEL sodium 140 mmol/ L 136-14 5 normal Not Available [address] [place], [address] 03/16/2024 03:04:04 03/10/2003/10/2024 BASIC METAB OLIC PANEL potassium 4.1 mmol/ L 3.5-5. 1 normal Not Available [address] [place], [address] 03/16/2024 03:04:04 03/10/2003/10/2024 BASIC METAB OLIC PANEL chloride 104 mmol/ L 98-107 normal Not Available [address] [place], [address] 03/16/2024 03:04:04 03/10/2003/10/2024 BASIC METAB OLIC PANEL CO2 27.6 mmol/ L 21.0-3 2.0 normal Not Available [address] [place], [address] 03/16/2024 03:04:04 03/10/2003/10/2024 BASIC METAB OLIC PANEL anion gap 8.4 mmol/ L 3-11 normal Not Available [address] [place], [address] 03/16/2024 03:04:04 03/10/2003/10/2024 URINA LYSIS color Yellow yellow Not Available Barrie gomez [address] [place], [address] 03/16/2024 03:04:07 03/10/2003/10/2024 URINA LYSIS clarity Clear clear Not Available Barrie gomez [address] [place], [address] 03/16/2024 03:04:07 03/10/2003/10/2024 URINA LYSIS specific gravity 1.020 1.005- 1.025 normal Not Available [address] [place], [address] 03/16/2024 03:04:07 03/10/20 24 03/10/2024 URINA LYSIS pH 5.5 5-8 normal Not Available Barrie gomez [address] [place], [address] 03/16/2024 03:04:07 03/10/20 24 03/10/2024 URINA LYSIS leukocyte esterase Negati ve negati ve Not Available [address] [place], [address] 03/16/2024 03:04:07 03/10/20 24 03/10/2024 URINA LYSIS nitrite Negati ve negati ve Not Available [address] [place], [address] 03/16/2024 03:04:07 03/10/2003/10/2024 URINA LYSIS protein Negati ve mg/dL neg-tr mike Not Available [address] [place], [address] 03/16/2024 03:04:07 03/10/2003/10/2024 URINA LYSIS glucose Negati ve mg/dL negati ve Not Available [address] [place], [address] 03/16/2024 03:04:07 03/10/2003/10/2024 URINA LYSIS ketones Negati ve mg/dL negati ve Not Available [address] [place], [address] 03/16/2024 03:04:07 03/10/2003/10/2024 URINA LYSIS urobilinogen 0.2 mg/dL up to 0.2 Not Available [address] [place], [address] 03/16/2024 03:04:07 03/10/20 24 03/10/2024 URINA LYSIS bilirubin Negati ve negati ve Not Available [address] [place], [address] 03/16/2024 03:04:07 03/10/2003/10/2024 URINA LYSIS blood Negati ve negati ve Not Available [address] [place], [address] 03/16/2024 03:04:07 06/13/20 24 06/13/2024 SODIU M sodium 125 mmol/ L 136-14 5 low Not Available [address] [place], [address] 06/13/2024 23:39:16 06/13/20 24 06/13/2024 SODIU M sodium 122 mmol/ L 136-14 5 critical low Criti zurdo value repor ivana to and readb ack from OLINDA [facility] (ACCOUNT SUPPORT MANAGER) at 2222 06/13 by LAB.I TI Resul t verif ied by repea t guillermo sis Not Available [address] [place], [address] 06/13/2024 22:28:11 06/13/20 24 06/13/2024 URINA LYSIS color Yellow yellow Not Available Barrie gomez [address] [place], [address] 06/13/2024 20:53:56 06/13/2006/13/2024 URINA LYSIS clarity Clear clear Not Available Barrie gomez [address] [place], [address] 06/13/2024 20:53:56 06/13/20 24 06/13/2024 URINA LYSIS specific gravity <= 1.005 1.005- 1.025 normal Not Available [address] [place], [address] 06/13/2024 20:53:56 06/13/20 24 06/13/2024 URINA LYSIS pH 5.0 5-8 normal Not Available Barrie gomez [address] [place], [address] 06/13/2024 20:53:56 06/13/20 24 06/13/2024 URINA LYSIS leukocyte esterase Negati ve negati ve Not Available [address] [place], [address] 06/13/2024 20:53:56 06/13/20 24 06/13/2024 URINA LYSIS nitrite Negati ve negati ve Not Available [address] [place], [address] 06/13/2024 20:53:56 06/13/20 24 06/13/2024 URINA LYSIS protein Negati ve mg/dL neg-tr mike Not Available [address] [place], [address] 06/13/2024 20:53:56 06/13/20 24 06/13/2024 URINA LYSIS glucose Negati ve mg/dL negati ve Not Available [address] [place], [address] 06/13/2024 20:53:56 06/13/20 24 06/13/2024 URINA LYSIS ketones Negati ve mg/dL negati ve Not Available [address] [place], [address] 06/13/2024 20:53:56 06/13/20 24 06/13/2024 URINA LYSIS urobilinogen 0.2 mg/dL up to 0.2 Not Available [address] [place], [address] 06/13/2024 20:53:56 06/13/20 24 06/13/2024 URINA LYSIS bilirubin Negati ve negati ve Not Available [address] [place], [address] 06/13/2024 20:53:56 06/13/20 24 06/13/2024 URINA LYSIS blood Negati ve negati ve Not Available [address] [place], [address] 06/13/2024 20:53:56 06/13/20 24 06/16/2024 ZONIS AMIDE zonisamide 17 mcg/m L 10-40 ----- ----- ----- ----A DDITI ONAL INFOR MATIO N---- ----- ----- ----- This test was devel oped and its perfo rmanc e cristina cteri stics deter mined by [facility] in a elidia r consi stent with JEANNIE chanel ts. This test has not been clear ed or appro elly by the [place] Food and Drug Admin istra tion. Test Perfo rmed by: [facility] Labor atori es - [address], [place] [address] Lab Direc tor: Rosita timmons Ph.D. ; [facility]# [id number] Not Available [address] [place], [address] 06/17/2024 04:46:05 06/13/20 24 06/13/2024 MAGNE SIUM magnesium 2.1 mg/dL 1.8-2. 4 normal Not Available [address] [place], [address] 06/13/2024 21:12:58 06/13/20 24 06/13/2024 COMPR EHENS BEBE METAB OLIC PANEL calcium 8.2 mg/dL 8.5-10 .1 low Not Available [address] [place], [address] 06/13/2024 21:12:57 06/13/20 24 06/13/2024 COMPR EHENS BEBE METAB OLIC PANEL glucose 60 mg/dL 74-106 low Not Available Barrie [address] [place], [address] 06/13/2024 21:12:57 06/13/20 24 06/13/2024 COMPR EHENS BEBE METAB OLIC PANEL BUN 15 mg/dL 7-18 normal Not Available Barrie [address] [place], [address] 06/13/2024 21:12:57 06/13/20 24 06/13/2024 COMPR EHENS BEBE METAB OLIC PANEL creatinine 1.1 mg/dL 0.70-1 .30 normal Not Available [address] [place], [address] 06/13/2024 21:12:57 06/13/20 24 06/13/2024 COMPR EHENS [...] young er-ag ed adult s. Not Available [address] [place], [address] 06/13/2024 21:12:57 06/13/20 24 06/13/2024 COMPR EHENS BEBE METAB OLIC PANEL total protein 8.1 g/dL 6.4-8. 2 normal Not Available [address] [place], [address] 06/13/2024 21:12:57 06/13/20 24 06/13/2024 COMPR EHENS BEBE METAB OLIC PANEL albumin 4.1 g/dL 3.4-5. 0 normal Not Available [address] [place], [address] 06/13/2024 21:12:57 06/13/20 24 06/13/2024 COMPR EHENS BEBE METAB OLIC PANEL bilirubin, total 0.59 mg/dL 0.2-1. 0 normal Not Available [address] [place], [address] 06/13/2024 21:12:57 06/13/20 24 06/13/2024 COMPR EHENS BEBE METAB OLIC PANEL alk phos 132 U/L 46-116 high Not Available [address] [place], [address] 06/13/2024 21:12:57 06/13/20 24 06/13/2024 COMPR EHENS BEBE METAB OLIC PANEL sodium 121 mmol/ L 136-14 5 critical low Criti zurdo value repor ivana to and readb ack from LEILANI STOVALL (RN), ER at 2105 06/13 by LAB.I TI Resul t verif ied by repea t guillermo sis Not Available [address] [place], [address] 06/13/2024 21:12:57 06/13/20 24 06/13/2024 COMPR EHENS BEBE METAB OLIC PANEL potassium 4.2 mmol/ L 3.5-5. 1 normal Not Available [address] [place], [address] 06/13/2024 21:12:57 06/13/20 24 06/13/2024 COMPR EHENS BEBE METAB OLIC PANEL chloride 86 mmol/ L 98-107 low Not Available [address] [place], [address] 06/13/2024 21:12:57 06/13/20 24 06/13/2024 COMPR EHENS BEBE METAB OLIC PANEL CO2 22.6 mmol/ L 21.0-3 2.0 normal Not Available [address] [place], [address] 06/13/2024 21:12:57 06/13/20 24 06/13/2024 COMPR EHENS BEBE METAB OLIC PANEL anion gap 12.4 mmol/ L 3-11 high Not Available [address] [place], [address] 06/13/2024 21:12:57 06/13/20 24 06/13/2024 COMPR EHENS BEBE METAB OLIC PANEL AST 23 U/L 15-37 normal Not Available Barrie [address] [place], [address] 06/13/2024 21:12:57 06/13/20 24 06/13/2024 COMPR EHENS BEBE METAB OLIC PANEL ALT 59 U/L 16-63 normal Not Available [address] [place], [address] 06/13/2024 21:12:57 06/13/20 24 06/13/2024 COMPL ETE BLOOD COUNT W/DIF F WBC 6.66 10_3/ uL 4.4-10 .8 normal Not Available [address] [place], [address] 06/13/2024 21:04:58 06/13/20 24 06/13/2024 COMPL ETE BLOOD COUNT W/DIF F RBC 5.25 10_6/ uL 4.36-5 .78 normal Not Available [address] [place], [address] 06/13/2024 21:04:58 06/13/20 24 06/13/2024 COMPL ETE BLOOD COUNT W/DIF F HGB 12.9 g/dL 13.5-1 7.5 low Not Available [address] [place], [address] 06/13/2024 21:04:58 06/13/20 24 06/13/2024 COMPL ETE BLOOD COUNT W/DIF F HCT 38.5 % 40.0-5 0.0 low Not Available [address] [place] [place], [address] 06/13/2024 21:04:58 06/13/20 24 06/13/2024 COMPL ETE BLOOD COUNT W/DIF F MCV 73 fL 80-95 low Not Available [address] [place], [address] 06/13/2024 21:04:58 06/13/20 24 06/13/2024 COMPL ETE BLOOD COUNT W/DIF F MCH 24.6 pg 27.0-3 3.0 low Not Available [address] [place], [address] 06/13/2024 21:04:58 06/13/20 24 06/13/2024 COMPL ETE BLOOD COUNT W/DIF F MCHC 33.5 % 32.0-3 6.0 normal Not Available [address] [place], [address] 06/13/2024 21:04:58 06/13/20 24 06/13/2024 COMPL ETE BLOOD COUNT W/DIF F RDW 13.6 % 11.8-1 4.1 normal Not Available [address] [place], [address] 06/13/2024 21:04:58 06/13/20 24 06/13/2024 COMPL ETE BLOOD COUNT W/DIF F platelet count 260 10_3/ uL 130-40 0 normal Not Available [address] [place], [address] 06/13/2024 21:04:58 06/13/20 24 06/13/2024 COMPL ETE BLOOD COUNT W/DIF F MPV 8.9 fL 8.0-11 .0 normal Not Available [address] [place], [address] 06/13/2024 21:04:58 06/13/20 24 06/13/2024 COMPL ETE BLOOD COUNT W/DIF F neutrophils % 61.9 % Not Available [address] [place], [address] 06/13/2024 21:04:58 06/13/20 24 06/13/2024 COMPL ETE BLOOD COUNT W/DIF F lymphocytes % 26.6 % Not Available [address] [place], [address] 06/13/2024 21:04:58 06/13/20 24 06/13/2024 COMPL ETE BLOOD COUNT W/DIF F monocytes % 8.1 % Not Available [address] [place], [address] 06/13/2024 21:04:58 06/13/20 24 06/13/2024 COMPL ETE BLOOD COUNT W/DIF F eosinophils % 1.1 % Not Available [address] [place], [address] 06/13/2024 21:04:58 06/13/20 24 06/13/2024 COMPL ETE BLOOD COUNT W/DIF F basophils % 0.3 % Not Available [address] [place] [facility] [place], [address] 06/13/2024 21:04:58 06/13/20 24 06/13/2024 COMPL ETE BLOOD COUNT W/DIF F immature grans % 2.0 % Not Available [address] [place], [address] 06/13/2024 21:04:58 06/13/20 24 06/13/2024 COMPL ETE BLOOD COUNT W/DIF F nucleated RBC 0.0 % 0.0-0. 3 normal Not Available [address] [place] [facility] [place], [address] 06/13/2024 21:04:58 06/13/20 24 06/13/2024 COMPL ETE BLOOD COUNT W/DIF F absolute neutrophil count 4.13 10_3/ uL 1.2-6. 7 normal Not Available [address] [place], [address] 06/13/2024 21:04:58 06/13/20 24 06/13/2024 COMPL ETE BLOOD COUNT W/DIF F absolute lymphocyte count 1.77 10_3/ uL 1.2-3. 4 normal Not Available [address] [place] [place], [address] 06/13/2024 21:04:58 06/13/20 24 06/13/2024 COMPL ETE BLOOD COUNT W/DIF F absolute monocyte count 0.54 10_3/ uL 0.1-0. 8 normal Not Available [address] [place] [place], [address] 06/13/2024 21:04:58 06/13/20 24 06/13/2024 COMPL ETE BLOOD COUNT W/DIF F absolute eosinophil count 0.07 10_3/ uL 0.0-0. 7 normal Not Available [address] [place] [place], [address] 06/13/2024 21:04:58 06/13/20 24 06/13/2024 COMPL ETE BLOOD COUNT W/DIF F absolute basophil count 0.02 10_3/ uL 0.0-0. 2 normal Not Available [address] [place], [address] 06/13/2024 21:04:58 06/13/20 24 06/13/2024 COMPL ETE BLOOD COUNT W/DIF F diff comment RBC Morph Review ed Not Available [address] [place], [address] 06/13/2024 21:04:58 06/13/20 24 06/13/2024 COMPL ETE BLOOD COUNT W/DIF F RBC morphology See Below Not Available [address] [place], [address] 06/13/2024 21:04:58 06/13/20 24 06/13/2024 COMPL ETE BLOOD COUNT W/DIF F microcytosis 1+ Not Available [address] [place], [address] 06/13/2024 21:04:58 06/13/20 24 06/13/2024 PROTH ROMBI N TIME prothrombin time 11.0 sec 9.1-11 .1 normal Not Available [address] [place], [address] 06/13/2024 21:04:56 06/13/20 24 06/13/2024 PROTH ROMBI N TIME INR 1.1 0.9-1. 1 normal Recom ivon d INR thera peuti c range s for orall y admin ister ed drugs are as follo ws: -Elias dard Inten sity 2.0 to 3.0 -High er Inten sity 3.0 to 4.5 Not Available [address] [place], [address] 06/13/2024 21:04:56 06/28/20 24 06/28/2024 BASIC METAB OLIC PANEL calcium 9.0 mg/dL 8.5-10 .1 normal Not Available [address] [place] [facility] [place], [address] 06/28/2024 16:50:30 06/28/20 24 06/28/2024 BASIC METAB OLIC PANEL glucose 82 mg/dL 74-106 normal Not Available Barrie gomez [address] [place], [address] 06/28/2024 16:50:30 06/28/20 24 06/28/2024 BASIC METAB OLIC PANEL BUN 26 mg/dL 7-18 high Not Available Barrie gomez [address] [place], [address] 06/28/2024 16:50:30 06/28/20 24 06/28/2024 BASIC METAB OLIC PANEL creatinine 1.1 mg/dL 0.70-1 .30 normal Not Available [address] [place] [facility] [place], [address] 06/28/2024 16:50:30 06/28/20 24 06/28/2024 BASIC METAB [...] young er-ag ed adult s. Not Available [address] [place], [address] 06/28/2024 16:50:30 06/28/20 24 06/28/2024 BASIC METAB OLIC PANEL sodium 144 mmol/ L 136-14 5 normal Not Available [address] [place], [address] 06/28/2024 16:50:30 06/28/20 24 06/28/2024 BASIC METAB OLIC PANEL potassium 4.0 mmol/ L 3.5-5. 1 normal Not Available [address] [place] [place], [address] 06/28/2024 16:50:30 06/28/20 24 06/28/2024 BASIC METAB OLIC PANEL chloride 107 mmol/ L 98-107 normal Not Available [address] [place], [address] 06/28/2024 16:50:30 06/28/20 24 06/28/2024 BASIC METAB OLIC PANEL CO2 25.0 mmol/ L 21.0-3 2.0 normal Not Available [address] [place], [address] 06/28/2024 16:50:30 06/28/20 24 06/28/2024 BASIC METAB OLIC PANEL anion gap 12.0 mmol/ L 3-11 high Not Available [address] [place], [address] 06/28/2024 16:50:30 07/15/19 25 07/15/2024 SODIU M sodium 141 mmol/ L 136-14 5 normal Not Available [address] [place], [address] 07/16/2024 16:14:24 07/15/19 25 07/15/2024 SODIU M sodium 141 mmol/ L 136-14 5 normal Not Available [address] [place], [address] 07/15/2024 16:16:44 07/22/1907/22/2024 BASIC METAB OLIC PANEL calcium 8.6 mg/dL 8.5-10 .1 normal Not Available [address] [place], [address] 07/22/2024 15:40:42 07/22/19 25 07/22/2024 BASIC METAB OLIC PANEL glucose 80 mg/dL 74-106 normal Not Available Barrie gomez [address] [place], [address] 07/22/2024 15:40:42 07/22/19 25 07/22/2024 BASIC METAB OLIC PANEL BUN 17 mg/dL 7-18 normal Not Available Barrie gomez [address] [place], [address] 07/22/2024 15:40:42 07/22/19 25 07/22/2024 BASIC METAB OLIC PANEL creatinine 1.0 mg/dL 0.70-1 .30 normal Not Available [address] [place], [address] 07/22/2024 15:40:42 07/22/19 25 07/22/2024 BASIC METAB OLIC PANEL estimated GFR 101.28 mL/min /1.73M 2 The eGFR is calcu [...] young er-ag ed adult s. Not Available [address] [place], [address] 07/22/2024 15:40:42 07/22/19 25 07/22/2024 BASIC METAB OLIC PANEL sodium 141 mmol/ L 136-14 5 normal Not Available [address] [place], [address] 07/22/2024 15:40:42 07/22/19 25 07/22/2024 BASIC METAB OLIC PANEL potassium 3.8 mmol/ L 3.5-5. 1 normal Not Available [address] [place], [address] 07/22/2024 15:40:42 07/22/19 25 07/22/2024 BASIC METAB OLIC PANEL chloride 105 mmol/ L 98-107 normal Not Available [address] [place], [address] 07/22/2024 15:40:42 07/22/19 25 07/22/2024 BASIC METAB OLIC PANEL CO2 28.4 mmol/ L 21.0-3 2.0 normal Not Available [address] [place], [address] 07/22/2024 15:40:42 07/22/19 25 07/22/2024 BASIC METAB OLIC PANEL anion gap 7.6 mmol/ L 3-11 normal Not Available [address] [place], [address] 07/22/2024 15:40:42 03/21/20 24 08/04/2019 imagi ng/di agnos tic [...] 21:53:43 06/13/20 24 06/13/2024 vrad repor t Patigato t Name: Miguel Angel Burgos Unit #: [id number] Loc: ER Orderi ng Provid er: Accholly t #: [id number] Status : PRE ER Primar y Care Provid er: Jose Gardner Date of Exam: 02/27 Sex: M : [...] of the extra- axial space along the rewind operator ior midlin e of the rewind operator ior fossa presum ably repres ents [...] MD. Orderi ng:Madeleine Ortega MD Access ion#=[id number] Ordere d By: CC: ------ ------ [...] error, please notify us immedi jimly at [phone] and return the origin al report to us at the addres s above. Thank- you. [email or web address] [facility] [address], [place], [address] 06/14/2024 13:39:40 06/14/20 24 06/14/2024 CT imagi ng repor t Patigato t Name: Miguel Angel Burgos Unit #: [id number] Loc: ER Orderi ng Provid er: Diego Winchester M.D. Accoun t #: [id number] Status : DEP ER Primar y Care Provid er: Jose Gardner Date of Exam: 02/27 Sex: M : 1989 Age: 33 Exam(s ) a CT:CT head wo Exam(s ) CT HEAD WO EXAM: CT HEAD WO CLINIC AL HISTOR Y: Breakt hrough sz. TECHNI QUE: Imagin g Protoc ol: [...] ogy. Study 1st read by Fannie CHRISTIE Telera diolog y. RADIAT ION DOSE DELIVE RED: 865.98 mGy.cm Total DLP DATA REPOSI TORY: All CT scans at this facili ty are submit ivana to the Nation al Radiol ogy Data Regist ry (NRDR) Dose Index Regist ry (DIR) with the Americ barbie harmon of Radiol ogy (ACR). RADIAT ION OPTIMI ZATION : [facility] use at least one of these [...] error, please notify us immedi ately at [phone] and return the origin al report to us at the addres s above. Thank- you. INTERFACE [facility] [address] , [place], [address] 06/14/2024 09:01:48 Result Notes None recorded. Problems Name Problem SNOMED Code Status Onset Date Resolution Date Notes Provider Name and Address Organization Details Recorded Time Hyponatr emia 45169576 Active [address], [place], [address] , [facility]. 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 2016 Problem Code: H47.20; Problem Code Type: ICD-10; Not Available [facility] 3 04:21:52 Gastriti s 9697189 Active 2016 Problem Code: K29.70; Problem Code Type: ICD-10; Not Available [facility] 3 04:21:52 Urinary incontin ence 468405339 Active 2016 Problem Code: R32; Problem Code Type: ICD-10; Not Available [facility] 3 04:21:52 Senile osteopor osis 74439088 Active 201602/22/20 21 - Comments only - [...] M81.0; Problem Code Type: ICD-10; Not Available [facility] 3 04:21:52 Pure hypergly ceridemi a 074727382 Active 201602/27/20 22 - Comments only - Ren Vaz MD - tolerati ng statin. However with elevated LFTs could consider cutting statin dose to see if helps LFTs. Problem Code: E78.1; Problem Code Type: ICD-10; Not Available [facility] 3 04:21:53 History of benign neoplasm of brain 078954273 Active 2016 Problem Code: Z86.011; Problem Code Type: ICD-10; Not Available [facility] 3 04:21:53 Insomnia 052667918 Active 201612/09/19 19 - Deterior ated - Subha Colno FRONT SERVICES AGENT - Currentl y on trazodon e, not effectiv e. See above. 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 Cycloben zaprine no longer effectiv e. Will change to baclofen 10mg TID. reports analysis manager will call in 1-2 weeks to report effectiv eness. Pain may be influenc ing increase d agitatio n and poor sleep. Problem Code: M24.50; Problem Code Type: ICD-10; Not Available [facility] 3 04:21:53 Amnesia 31097858 Active 2016 Problem Code: R41.3; Problem Code Type: ICD-10; Not Available [facility] 3 04:21:53 Hemipleg ia 86728809 Active 201602/22/20 21 - Comments only - Ren Vaz MD - Encourag ing increase in activty. I agree with PT. Problem Code: G81.90; Problem Code Type: ICD-10; Not Available [facility] 3 04:21:54 Red blood cell finding 125951301 Active 2017 Problem Code: R71.8; Problem Code Type: ICD-10; Not Available [facility] 3 04:21:54 Retentio n of urine 748766794 Active 201805/18/20 19 - Comments only - Subha Colon APRN - Suscepti ble to UTIs. They will return urine sample for testing. Problem Code: R33.9; Problem Code Type: ICD-10; Not Available [facility] 3 04:21:54 Restless ness and agitatio n 561538104 Active 2018 Problem Code: R45.1; Problem Code Type: ICD-10; Not Available [facility] 3 04:21:54 Seizure 62436167 Active 2018 Problem Code: R56.9; Problem Code Type: ICD-10; Not Available [facility] 3 04:21:54 Dyspnea 823162636 Completed 201806/01/2019 Problem Code: R06.02; Problem Code Type: ICD-10; Not Available [facility] 3 04:21:54 Acute upper respirat ory infectio n 80927739 Completed 201806/01/2019 05/18/20 19 - Comments only [...] Center 3 04:21:55 Steatosi s of liver 111923422 Active 201903/03/20 23 - Comments only - Ren Vaz MD - Improved last year with weight loss. REcheck CBC/CMP with labs Problem Code: K76.0; Problem Code Type: ICD-10; Not Available [facility] 3 04:21:55 Adult health examinat [...] Z00.00; Problem Code Type: ICD-10; Not Available [facility] 3 04:21:55 Bradycar hossein 98538842 Completed 201909/01/2019 08/25/19 20 - Comments only - Ren Vaz MD - Resolved after stopping metoprol ol. BP still okay, no hard indicati on for metoprol ol, so continue off this medicati on. Problem Code: R00.1; Problem Code Type: ICD-10; Not Available [facility] 3 04:21:55 Urticari a 135562864 Active 201908/14/19 21 - Comments only - Ren Vaz MD - irmpoved . continue higher dose H2 gui for now. Problem Code: L50.9; Problem Code Type: ICD-10; Not Available [facility] 3 04:21:55 Localize d eruption of skin 376535907 Completed 201904/26/2020 04/05/20 20 - Comments only - Ricarda Sanchez WIRE HANGER - Unclear etiology : possibly contact urticari [...] R21; Problem Code Type: ICD-10; Not Available [facility] 3 04:21:56 Anemia 082895248 Active 202008/20/19 22 - Comments only - Ren Vaz MD - This has been a stable chronic issue. We discusse d I iron stores actually normal, low TIBC suggests chronic disease cause. Continue to follow. Problem Code: D64.9; Problem Code Type: ICD-10; Not Available [facility] 3 04:21:56 Hypo-osm olality and or hyponatr emia 997850234 Active 202002/22/20 21 - Comments only - Ren Vaz MD - Doing well on fluid restrict ion, continue . Problem Code: E87.1; Problem Code Type: ICD-10; Not Available [facility] 3 04:21:56 Obesity 340824938 Active 2020 Problem Code: E66.9; Problem Code Type: ICD-10; Not Available [facility] 3 04:21:56 Furuncle of left axilla 42814389543 955504 Active 202003/14/20 21 - Comments only - [...] L02.422; Problem Code Type: ICD-10; Not Available [facility] 3 04:21:56 Trichoti llomania 68261894 Active 202102/27/20 22 - Comments only - Ren Vaz MD - Discusse d skin care, defer medicati on adjustme nts to psych Problem Code: F63.3; Problem Code Type: ICD-10; Not Available [facility] 3 04:21:56 Diabetes insipidu s 21354089 Active 201605/24/20 19 - Comments only - Subha Colon APRN - Will recheck sodium level. Problem Code: E23.2; Problem Code Type: ICD-10; Not Available [facility] 3 04:21:57 Hypopitu itarism 12233000 Active 2016 Problem Code: E23.0; Problem Code Type: ICD-10; Not Available [facility] 3 04:21:57 Hypothyr oidism 02268694 Active 201602/22/20 21 - Comments only - Ren Vaz MD - FT4 at [facility], continue current supplume ntation Problem Code: E03.8; Problem Code Type: ICD-10; Not Available [facility] 3 04:21:57 History and physical examinat trae administ raticolton Completed 201807/09/2019 Problem Code: Z02.89; Problem Code Type: ICD-10; Not Available [facility] 3 04:21:58 Disorder of eye 114725736 Completed 201804/05/2019 Problem Code: H44.89; Problem Code Type: ICD-10; Not Available [facility] 3 04:21:59 Pain of left knee joint 99052524060 4107 Completed 201707/09/2019 Problem Code: M25.562; Problem Code Type: ICD-10; Not Available [facility] 3 04:21:59 Bleeding 165740407 Completed 202002/21/2021 Problem Code: R58; Problem Code Type: ICD-10; Not Available [facility] 3 04:21:59 Fever 372356387 Completed 201804/05/2019 Problem Code: R50.9; Problem Code Type: ICD-10; Not Available [facility] 3 04:21:59 Family history of diabetes mellitus 641116221 Completed 201607/09/2019 Problem Code: Z83.3; Problem Code Type: ICD-10; Not Available [facility] 3 04:22:00 Fever 705359102 Completed 201805/24/2019 Problem Code: R50.9; Problem Code Type: ICD-10; Not Available [facility] 3 04:22:00 Gastroes ophageal reflux disease without esophagi tis 286210806 Completed 201604/02/2023 Problem Code: K21.9; Problem Code Type: ICD-10; Not Available [facility] 3 04:22:00 Wheezing 99477417 Completed 201709/18/2018 Problem Code: R06.2; Problem Code Type: ICD-10; Not Available [facility] 3 04:22:00 High enzyme level in serum 636790137 Completed 201904/02/2023 02/27/20 22 - Comments only [...] 04:22:01 Body mass index 30+ - obesity 203617653 Completed 202004/02/2023 Problem Code: Z68.34; Problem Code Type: ICD-10; Not Available [facility] 3 04:22:01 Disorder of intestin e 41670053 Completed 202008/14/2020 Problem Code: K63.9; Problem Code Type: ICD-10; Not Available [facility] 3 04:22:01 Screenin g for disorder Completed 201809/18/2018 Problem Code: Z13.9; Problem Code Type: ICD-10; Not Available [facility] 3 04:22:01 Spasm 32455523 Completed 201704/02/2023 08/25/19 20 - Comments only - Ren Vaz MD - Ongoing problem since CVA. Has neuro consult in october to consiide botox. For now try higher dose lorazepa m along with baclofen . Problem Code: R25.2; Problem Code Type: ICD-10; Not Available [facility] 3 04:22:02 Pain of right knee joint 74120481089 4100 Completed 201704/30/2018 Problem Code: M25.561; Problem Code Type: ICD-10; Not Available [facility] 3 04:22:02 Cough 50678844 Completed 201709/08/2019 Problem Code: R05; Problem Code Type: ICD-10; Not Available [facility] 3 04:22:02 Iron deficien cy anemia 57309009 Completed 201704/02/2023 Problem Code: D50.8; Problem Code Type: ICD-10; NAKIA SANTOS [address], [place], [address] , [facility]. 4 09:14:59 Counseli odalis Completed 201812/08/2018 Problem Code: Z71.89; Problem Code Type: ICD-10; Not Available [facility] 3 04:22:03 Disorder of tooth developm ent 314297035 Completed 201808/14/2020 Problem Code: K00.9; Problem Code Type: ICD-10; Not Available [facility] 3 04:22:03 Hypocalc emia 5760656 Completed 201910/25/2019 Problem Code: E83.51; Problem Code Type: ICD-10; Not Available [facility] 3 04:22:03 Hyperosm olality and or hypernat remia 941764788 Completed 201908/14/2020 Problem Code: E87.0; Problem Code Type: ICD-10; Not Available [facility] 3 04:22:04 Testicul ar hypofunc tion 479992935 Completed 201604/02/2023 Problem Code: E29.1; Problem Code Type: ICD-10; Not Available [facility] 3 04:22:04 Seasonal allergic rhinitis 374301931 Completed 201904/02/2023 10/25/19 20 - Comments only - Ren Vaz MD - try H1 block Problem Code: J30.2; Problem Code Type: ICD-10; Not Available [facility] 3 04:22:05 Wheezing 77565252 Completed 201805/24/2019 Problem Code: R06.2; Problem Code Type: ICD-10; Not Available [facility] 3 04:22:05 Seizure 73101396 Completed 201607/09/2019 Problem Code: R56.9; Problem Code Type: ICD-10; Not Available [facility] 3 04:22:05 Chronic excoriat ion of skin 484280810 Active 2023 NAKIA SANTOS [address], [place] [address] , [facility] 4 09:12:56 Non-alco holic fatty liver disease Active [address], [address] 4 09:14:30 Iron deficien cy anemia 93913774 Active 2023 Problem Code: D50.8; Problem Code Type: ICD-10; NAKIA SANTOS Dr, [address] 4 09:14:59 Pruritic disorder 287710679 Active [address], [address] 4 09:21:10 Seizure disorder 549585697 Active [address], [address] 4 10:59:32 Finding of frequenc y of urinatio n 870055356 Active [address], [address] 4 11:23:00 Notes:*Problem Name: Blindne ss - both eyes *Problem Status: active *Comments: *Problem Code: H54.0 *Problem Code Type: ICD-10 *Note Date: 11/11/2016 Problem Notes None recorded. Procedures Surgical History None recorded. Imaging Results Imaging Date Name Status LastModified by Organiz ation Details LastModified Time 08/04/2019 imaging/diag nostic result [...] available 03/21/2024 21:53:43 06/13/2024 vrad report completed [email or web address] [facility] [address] [facility] [place], [address] 06/14/2024 13:39:40 06/14/2024 CT imaging report completed INTERFACE [address] [place], [address] 06/14/2024 09:01:48 Procedure Notes None recorded. Medical Equipment None Reported. Allergies Allergen ID Allergen Name Allergen Category Reaction Reaction Severity Criticality Documentation Date Start Date Code Code System Note Provider Name and Address Organization Details Recorded Time 55803 Lopid medicatio n Not available Not available Not available 05/04/2024 9 RxNorm MALOU Martinez, [place] - [facility]. 10:58:41 Medications Name [...] DateTime 4 167.157 4 cm 33.5 kg/m2 55021.1 8 g 97.7 [degF] 96 % 96 % 83 /min 118 mm[Hg] 82 mm[Hg] KRISTYN SINGH MA [facility] 4 11:07:26 Date Recorded Body height Body mass index (BMI) Body weight Body temperature Oxygen saturation Oxygen saturation in Arterial blood by Pulse oximetry Heart rate Respiratory rate Systolic blood pressure Diastolic blood pressure Provider Name and Address Organization Details Last Updated DateTime 4 167.157 4 cm 33.3 kg/m2 87824.4 4 g 97.7 [degF] 97 % 97 % 92 /min 18 /min 110 mm[Hg] 76 mm[Hg] Ashley England MA [facility] 4 10:58:12 Date Recorded Body height Body mass index (BMI) Body weight Body temperature Oxygen saturation Oxygen saturation in Arterial blood by Pulse oximetry Heart rate Systolic blood pressure Diastolic blood pressure Provider Name and Address Organization Details Last Updated DateTime 4 167.157 4 cm 34.3 kg/m2 25675.9 9 g 97.2 [degF] 97 % 97 % 80 /min 128 mm[Hg] 70 mm[Hg] KRISTYN SINGH MA [facility], [facility] 4 11:35:36 Date Recorded Body height Body mass index (BMI) Body weight Body temperature Oxygen saturation Oxygen saturation in Arterial blood by Pulse oximetry Heart rate Systolic blood pressure Diastolic blood pressure Provider Name and Address Organization Details Last Updated DateTime 5 167.157 4 cm 31.5 kg/m2 59153.6 4 g 97.5 [degF] 100 % 100 % 96 /min 106 mm[Hg] 68 mm[Hg] KRISTYN SINGH MA [facility] 5 10:00:19 Date Recorded Body height Body mass index (BMI) Body weight Body temperature Oxygen saturation Oxygen saturation in Arterial blood by Pulse oximetry Heart rate Systolic blood pressure Diastolic blood pressure Provider Name and Address Organization Details Last Updated DateTime 5 167.157 4 cm 35.1 kg/m2 77552.3 9 g 97.3 [degF] 100 % 100 % 92 /min 132 mm[Hg] 72 mm[Hg] KRISTYN SINGH MA [facility] 5 10:30:05 Social History Question Answer Notes LastModified by Organizat ion Details LastModified Time Tobacco Smoking Status Never Smoker Ashley England MA [facility], [facility] 05/04/2024 11:00:43 What Was The Date Of Your Most Recent Tobacco Screening? 05/04/2024 [email or web address] Information not available 05/04/2024 Has Tobacco Cessation Counseling Been Provided? Yes [email or web address] Information not available 05/04/2024 On What Date Was Tobacco Cessation Counseling Provided? 05/04/2024 [email or web address] Information not available 05/04/2024 Sex: Male Functional Status None recorded. Mental Status None recorded. Family History Nothing Reported Notes:*Problem: Mom had trever l failure Diabetes in the family Medical History No medical history recorded. Immunizations Vaccine Type Date Status Note Provider Nam e and Address Organization Details Recorded Time MMR 0 completed Not Available [facility] 05/16/2023 04:39:45 MMR 2 completed Not Available [facility] 05/16/2023 04:39:46 Tdap 1 completed Not Available [facility] 05/16/2023 04:39:47 Tdap 1 completed Not Available [facility] 05/16/2023 04:39:48 Influenza, split virus, quadrivalent, PF 9 completed Not Available [facility] 05/16/2023 04:39:48 Hib, unspecified formulation 1 completed Not Available [facility] 05/16/2023 04:39:48 Hib, unspecified formulation 1 completed Not Available [facility] 05/16/2023 04:39:49 Hib, unspecified formulation 2 completed Not Available [facility] 05/16/2023 04:39:49 Hib, unspecified formulation 1 completed Not Available [facility] 05/16/2023 04:39:49 DTaP 1 completed Not Available [facility] 05/16/2023 04:39:50 DTaP 1 completed Not Available [facility] 05/16/2023 04:39:50 DTaP 6 completed Not Available [facility] 05/16/2023 04:39:50 DTaP 1 completed Not Available [facility] 05/16/2023 04:39:50 DTaP 2 completed [...] B, unspecified formulation 3 completed Not Available [facility] 05/16/2023 04:39:52 Hep B, unspecified formulation 3 completed Not Available [facility] 05/16/2023 04:39:52 Hep B, unspecified formulation 3 completed Not Available [facility] 05/16/2023 04:39:52 influenza, unspecified formulation 4 completed Not Available [facility] 05/16/2023 04:39:53 polio, unspecified formulation 1 completed Not Available [facility] 05/16/2023 04:39:53 polio, unspecified formulation 1 completed Not Available [facility] 05/16/2023 04:39:54 polio, unspecified formulation 6 completed Not Available [facility] 05/16/2023 04:39:54 polio, unspecified formulation 1 completed Not Available [facility] 05/16/2023 04:39:54 polio, unspecified formulation 2 completed Not Available [facility] 05/16/2023 04:39:54 rabies, unspecified formulation 5 completed Not Available [facility] 05/16/2023 04:39:55 rabies, unspecified formulation 5 completed Not Available [facility] 05/16/2023 04:39:55 Influenza, split virus, trivalent, PF 4 completed NAKIA SANTOS [address], [place], [address], [facility] 06/29/2024 17:51:39 Influenza, split virus, quadrivalent, PF 3 completed Not Available [facility] 07/18/2023 05:33:06 COVID-19, mRNA, LNP-S, PF, kota-sucrose, 30 mcg/0.3 mL 3 completed Not Available [facility] 07/18/2023 05:33:07 Past Encounters Encounter ID Performer Location Encounter Start Date Encounter Closed Date Diagnosis/Indication Diagnosis SNOMED-CT Code Diagnosis ICD10 Code Diagnosis Note [id number] NAKIA SANTOS [facility] [address] [place] [address] 09/18/2023 08:30:46 09/18/2023 09:43:31 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 actively picking at skin with frequency. Advised covering during day when supervised and removing at night as I'm informed he's tried to eat band aids before at night. Chronic ex coriation of skin 000151188 T14.8XXA We will Rx pplx mupiricin in case of any signs of infection related to chronic picking at scabs. Non-alcoho lic fatty liver disease 4641641400 K76.0 Pt. with evidence on Ultrasound s which have been on yearly surveillan ce. We will check labs for liver health/ble eding risk as below in iron deficiency anemia orders. Iron defic iency anemia 41055496 D50.9 Will check labs as pt. picking leads to bleeding that seems a bit out of proportion to the scabs he is picking off. Pruritic disorder 130504 002 L29.9 We will make up to 2 tablets avialable at night of hydroxyzin e for pruritis. [id number] NAKIA SANTOS [facility] [address] [place] [address] 03/05/2024 10:55:01 03/05/2024 12:03:04 Finding of frequency of urination 470272003 R35.0 Will check urine. Pt. unable to urinate in office so cup given and caregiver will drop off. Restlessne ss and agitation 141074776 R45.1 We will increase his quetiapine from 150 mg ER qday to 200mg ER qday. Adult heal th examination 765516737 Z00.00 Hyperlipid emia screening 358313870 Z13.220 Hypothyroidism 26934346 E03.9 [id number] LAURIE RODGERS [facility] [address] [facility] [place] [address] 05/04/2024 09:55:01 05/04/2024 11:28:26 Cellulitis of right lower limb [id number] 9774472 L03.115 33 year old male with onset [...] area is amenable to incision and drainage. [id number] NAKIA SANTOS [facility] [address] [place] [address] 06/28/2024 11:23:42 06/28/2024 12:54:45 Hyponatremia 16660271 E87.1 will recheck this lab. Currently following 2.5 L fluid restrictio n. No signs of excess fluid status on exam. Pt. at baseline from mental status viewpoint. Medlist reconciled . Active or passive immunization 948465790 Z23 Mass lesion of brain 422 897840 R22.0 Pt. to f/u with neurosurge ry for evolving 3.5cm mass [id number] NAKIA SANTOS [facility] [address] [place] [address] 07/15/2024 09:44:29 07/15/2024 10:32:19 Abscess of skin and/or subcutaneous tissue 78066700 L02.91 Pt. with abscess, about 5x10 cm along eliptical axis of left posterolat eral thigh, warm, ttp. Will start antibiotic s given pt. propensity to pick and current discomfort . Referred to wound care clinic for this and the other smaller ulceration on his right upper thigh. [id number] NAKIA SANTOS [facility] [address] [place] [address] 07/22/2024 10:14:28 07/22/2024 11:15:42 Abscess of skin and/or subcutaneous tissue 23660303 L02.91 Abscess area is improved with less redness circumfere ntially. Will continue Cephalexin for another 5 days. If infection worsens immediatel y after that, he may need GS referral for surgical excision/d rainage given the pt. comorbidit ies this would be a risk in the primary care office. Chronic ex coriation of skin 199547716 T14.8XXA We will Rx pplx mupiricin in case of any signs of infection related to chronic picking at scabs. Hyponatremia 01018599 E8 7.1 will recheck this lab. Currently [...] [employer] Member ID Guarantor Name 03/05/2024 1 [employer]) Miguel Angel D Barrup [id number] Miguel Angel D Barrup 05/04/2024 1 [employer] Miguel Angel D Barrup [id number] Miguel Angel D Barrup 06/28/2024 1 [employer] Miguel Angel D Barrup [id number] Miguel Angel D Barrup 07/15/2024 1 [employer]) Miguel Angel D Barrup [id number] Miguel Angel D Barrup 07/22/2024 1 [employer]) Miguel Angel D Barrup [id number] Miguel Angel D Barrup Notes Date Note [...] cough, wheezing.Cardiac: Pt. denies any chest pain,: manager packaging endorses baseline of frequencyMSK: Pt. denies any MSK complaints.Skin:Skin improved over prior per caregiver reportNeuro: No loss of function apparent to caregiver in ambulation status.Endocrine: Caregiver denies new pattern of cold or hot manifestation in patientHematologic: No frequent bleeding, epistaxis, easy bruisability reported by caregiver. DOTTIE GARDNER, NAKIA [address], [place], [address], [facility] 03/05/2024 12:22:56 05/04/2024 text/html Patient with pos sible abscess/boil to posterior R thigh, first noticed 2 nights ago, has become larger is more tender.Does have a small head with no visible drainage per caregivers at correction.Has had no fevers.Has had past skin infection to axilla. No recent antibiotic use. No history of drug resistant skin infections. VENTURA GANNON, WIRE HANGER [address], [place], [address], [facility] 05/04/2024 16:17:55 06/28/2024 text/html Pt, 34-M, here f or follow up of hyponatremia, be has history of DI, hypopituitarism, seizure, had been on fluid restriction of 3.5 L/day prior, pt. possibly getting to much prior to being seen 06/14/2024. Fluid restriction now at 2.5 L. We are to recheck sodium today at this level of sodium restriction. He has endocrinology f/u / . Enhancing brain mass: Has a neurosurgery evaluaiton for 3.5 cm schwanoma vs meningioma in mid July. Not at all clear that he would be a surgical candidate though. NAKIA SANTOS Dr, [place], [address], [facility]. 06/29/2024 17:55:30 07/15/2024 text/html Pt. 34-M, hx [...] part of his development disability. NAKIA SANTOS Dr, [place], [address], [facility]. 07/15/2024 10:33:24 07/22/2024 text/html Pt, 34-M, her fo r [...] management of chronic skin excoriations. NAKIA SANTOS Dr, [place], [address], [facility], [facility]. 07/23/2024 05:45:07
--- OUTSIDE RECORDS SUMMARY | 2024-07-30 02:55 | XMS_ITS | Encounter Summary ---
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) Procedures Wilder Clark, DO [address] [facility] [address] [place] [address] Phone: tel: fax: Referral ID Status Reason Start Date Expiration Date V isits Requested Visits Authorized [id number] New Request 07/06/2024 4 4 Encounter Details Date Type Department Care Team (Latest Contact Info) Description 07/06/2024 14:30 EST Phlebotomy Only [facility] Endocrinology - [facility] [place] [facility] [address] [place] [address] Phlebotomy, [facility] 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HCC-CMS); Secondary hypothyroidism; [...] Info) Description 10/01/2024 13:40 EDT Office Visit [facility] Endocrinology - [address] [address] Wilder Zaidi, [address] [place] [address] documented as of this encounter Procedures Procedure Name Priority Date/Time Associated Diagnosis Comments T4 FREE Routine 07/06/2024 14:44 EST Secondary hypothyroidism BASIC METABOLIC PANEL (BMP) Routine 07/06/2024 14:44 EST 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HCC-CMS) documented in this encounter Results * T4 FREE (07/06/2024 14:44 EST) T4, Free 1.4 0.8 - 2.2 ng/dL 07/06/2024 18:52 [facility] Blood VENOUS BLOOD / Unknown Venipuncture / Unknown 07/06/2024 14:44 EST 07/06/2024 14:45 EST Wilder Zaidi DO CHEMISTRY & BLOOD GAS ORDERABLES Final Result [facility] [address] [place] [address] * BASIC METABOLIC PANEL (BMP) (07/06/2024 14:44 EST) Sodium 142 136 - 145 mmol/L 07/06/2024 18:31 [facility] Potassium 4.3 3.5 - 5.0 mmol/L 07/06/2024 18:31 [facility] Chloride 107 96 - 110 mmol/L 07/06/2024 18:31 [facility] CO2 Total 22 22 - 32 mmol/L 07/06/2024 18:31 [facility] Anion Gap 13 5 - 14 mmol/L 07/06/2024 18:31 [facility] Glucose 87 70 - 99 mg/dl 07/06/2024 18:31 [facility] Calcium 9.2 8.5 - 10.5 mg/dL 07/06/2024 18:31 [facility] BUN 17 10 - 26 mg/dL 07/06/2024 18:31 [facility] Creatinine 0.95 0.66 - 1.25 mg/dL 07/06/2024 18:31 [facility] eGFR 108 >60 mL/min/1.73 m2 07/06/2024 18:31 [facility] Blood VENOUS BLOOD / Unknown Venipuncture / Unknown 07/06/2024 14:44 EST 07/06/2024 14:45 EST Wilder Zaidi DO CHEMISTRY & BLOOD GAS ORDERABLES Final Result [facility] [address] [place] [address] documented in this encounter Visit Diagnoses Diagnosis 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HCC-CMS) Diabetes insipidus Secondary hypothyroidism Other specified acquired hypothyroidism 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HCC-CMS) Panhypopituitarism documented in this encounter Care Teams Irish Moss Operator Relationship Specialty Start Date End Date Ren Vaz MD [address] [facility] [address] PCP - General 09/30/18 documented as of this encounter
--- OUTSIDE RECORDS SUMMARY | 2024-07-30 02:55 | XMS_ITS | Encounter Summary ---
Author Organization [facility] Address [address] [place] [address] Care Team Providers Care Remittance Clerk Name Role Phone Ren Vza MD Primary Care Provider [phone] Reason for Referral * Radiology Services (Routine/Next Available) - Specialty Report Received Specialty Diagnoses / Procedures Referred By Duyen bui Referred To Contact Diagnoses History of pituitary surgery Craniopharyngioma (HCC-CMS) Procedures CT HEAD WO CONTRAST Day Littlejohn MD PhD Phone: tel: fax: Referral ID Status Reason Start Date Expiration Date V isits Requested Visits Authorized [id number] Specialty Report Received 09/04/2023 1 1 * Radiology Services (Routine/Next Available) - Specialty Report Received Specialty Diagnoses / Procedures Referred By Duyen bui Referred To Contact Diagnoses 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 Procedures DXA BONE DENSITY Day Littlejohn MD PhD Phone: tel: fax: Referral ID Status Reason Start Date Expiration Date V isits Requested Visits Authorized [id number] Specialty Report Received 1 1 Reason for Visit * Reason Comments Other Panhypopituitarism Encounter Details Date Type Department Care Team (Latest Contact Info) Description 09/04/2023 10:00 EST Office Visit [facility] Endocrinology - [facility] [address] [place], [place] [id number] Day Littlejohn MD PhD [address] [place] [address] 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); [...] and [address] hd-at [facility] ([facility]) Order a bone dexascan to see [...] mentation, seizure disorder. He lives in a fdc, usually sees Dr. Zaidi. Central Diabetes Insipidus-On [...] risk due to vision/gait. Dexascan ordered at [facility]-warned may not have there. LOsat scan showed osteopenia-on Ca/D. Will update and see if worsening. CT ordered--will avoid MRI due to enclosure/noise that may startle him. Day Littlejohn MD PhD 09/04/2023 13:14 documented in this encounter Plan of Treatment Upcoming Encounters Date Type Department Care Team (Late st Contact Info) Description 10/01/2024 13:40 EDT Office Visit [facility] Endocrinology - [address] [place] [address] Shonjalyn Wilder Erik, [address] [place] [address] Scheduled Orders Name Type Priority [...] daily. added in this encounter Care Teams Remittance Clerk Relationship Specialty Start Date End Date Ren Vaz MD [facility] [place] [address] PCP - General 09/30/18 documented as of this encounter
--- OUTSIDE RECORDS SUMMARY | 2024-07-30 02:55 | XMS_ITS | Encounter Summary ---
Author Organization [facility] Address [address] [place] [address] Care Team Providers Care Medical Education Manager Name Role Phone Ren Vaz MD Primary Care Provider [phone] Encounter Details Date Type Department Care Team (Late st Contact Info) Description 07/30/2019 Lab Requisition [facility] Pathology & Laboratory Medicine - [address] [address] Unknown, Provider, Social History Tobacco Use Types [...] Visit [facility] Endocrinology - [place] [address] [place] [address] Wilder Zaidi, DO [address] [facility] [address] [place] [address] documented as of this encounter Procedures Procedure Name Priority Date/Time Associated Diagnosis Comments HEPATITIS C AB W REFLEX TO HCV RNA BY PCR Routine 07/30/2019 11:59 EST HEPATITIS B SURFACE ANTIGEN Routine 07/30/2019 11:59 EST documented in this encounter Results * HEPATITIS B SURFACE ANTIGEN (07/30/2019 11:59 EST) Hep B Surface Ag Negative Negative 08/02/2019 9:49 EST [facility] Blood VENOUS BLOOD / Unknown 07/30/2019 11:59 EST 07/30/2019 16:46 EST us Provider Unknown CHEMISTRY & BLOOD GAS ORDERA BLES Final Result Performing Organization Address City/[facility]/ZIP Co de Phone Number [facility] [address] [place] [address] * HEPATITIS C AB W REFLEX TO HCV RNA BY PCR (07/30/2019 11:59 EST) Hep C Antibody Negative Negative 08/02/2019 11:26 EST [facility] Blood VENOUS BLOOD / Unknown 07/30/2019 11:59 EST 07/30/2019 16:45 EST us Provider Unknown CHEMISTRY & BLOOD GAS ORDERA BLES Final Result Performing Organization Address City/[facility]/ZIP Co de Phone Number [facility] [address] [place] [address] documented in this encounter Visit Diagnoses Not on filedocumented in this encounter Care Teams Medical Education Manager Relationship Specialty Start Date End Date Ren Vaz [place] [address] PCP - General 09/30/18 documented as of this encounter
--- OUTSIDE RECORDS SUMMARY | 2024-07-30 02:55 | XMS_ITS | Encounter Summary ---
Author Organization [facility] Address [address] [place] [address] Care Team Providers Care Lane Attendant Name Role Phone Ren Vaz MD Primary Care Provider [phone] Reason for Visit * Reason Onset Date Comments Paperwork request 03/09/2024 Encounter Details Date Type Department Care Team (Late st Contact Info) Description 03/09/[address] [facility] Endocrinology - [address] [address] Day Littlejohn MD PhD [address] [facility] [address] [place] [address] Paperwork request Social History Tobacco [...] - Guillaume Pennington - 03/09/2024 1025 EDT Tours Hostess faxed most recent office note to [phone] documented in this encounter Plan of Treatment Upcoming Encounters Date Type Department Care Team (Late st Contact Info) Description 10/01/2024 13:40 EDT Office Visit [facility] Endocrinology - [address] [phone] Wilder Zaidi, [address] [facility] [address] [place] [address] documented as of this encounter Visit Diagnoses Not on filedocumented in this encounter Care Teams Lane Attendant Relationship Specialty Start Date End Date Ren Vaz MD [facility] [place] [address] PCP - General 09/30/18 documented as of this encounter
--- OUTSIDE RECORDS SUMMARY | 2024-07-30 02:55 | XMS_ITS | Encounter Summary ---
Author Organization [facility] Address [address] [place] [address] Care Team Providers Care Assembly Room Supervisor Name Role Phone Ren Vaz MD Primary Care Provider [phone] Reason for Visit * Reason Onset Date Comments Follow-up 10/20/2023 Paperwork request 10/20/2023 Encounter Details Date Type Department Care Team (Late st Contact Info) Description 10/20/2023 Telephone [facility] Endocrinology - [address] [address] Day Littlejohn MD PhD [address] [place] [address] [place] [address] Follow-up; Paperwork request Social History Tobacco [...] EDT Printed and faxed MICKEY notes to [facility] Routing to Dr. Littlejohn re: f/u about DXA and head CT scan results. MAVIS FRANCO RN 10/21/2023 13:52 * Telephone Encounter - Laura Freeman - 10/20/2023 1121 EDT Endocrinology Incoming Call Reason for call: follow up and records Labs Request/Results If known, which test are you inquiring about? Head scan and bone density Where was your test performed (which lab)? [facility] [place] [facility] What date was the [...] Info) Description 10/01/2024 13:40 EDT Office Visit [facility] Endocrinology - [place] [address] [facility] [address] [place], [place] [id number] Wilder Zaidi, DO [address] [facility] [address] [place] [address] documented as of this encounter Visit Diagnoses Not on filedocumented in this encounter Care Teams Assembly Room Supervisor Relationship Specialty Start Date End Date Ren Vaz MD [facility] [place] [address] PCP - General 09/30/18 documented as of this encounter
--- OUTSIDE RECORDS SUMMARY | 2024-07-30 02:55 | XMS_ITS | Encounter Summary ---
Author Organization [facility] Address [address] [place] [address] Care Team Providers Care Artificial Breeding Technician Name Role Phone Ren Vaz MD Primary Care Provider [phone] Reason for Referral * (Routine/Next Available) - Receiving Office to Obtain Authorization Specialty Diagnoses / Procedures Referred By Contac t Referred To Contact Procedures CT OUTSIDE IMAGES HEAD Imaging, External Referral ID Status Reason Start Date Expiration Date Visits Requested Visits Authorized [id number] Receiving Office to Obtain Authorization 10/03/2023 1 1 Reason for Visit * (Routine/Next Available) - Receiving Office to Obtain Authorization Specialty Diagnoses / Procedures Referred By Contac t Referred To Contact Procedures CT OUTSIDE IMAGES HEAD Imaging, External Referral ID Status Reason Start Date Expiration Date Visits Requested Visits Authorized [id number] Receiving Office to Obtain Authorization 10/03/2023 1 1 Encounter Details Date Type Department Care Team (Latest Contact Info) Description 10/03/2023 15:30 EDT - 10/03/2023 23:59 EDT Hospital Encounter [facility] Secondary Reads [place] Discharge Disposition: [...] [facility] Endocrinology - [place] [address] [place] [address] Wilder Zaidi, DO [address] [place] [address] documented as of this [...] on filedocumented in this encounter Care Teams Artificial Breeding Technician Relationship Specialty Start Date End Date Ren Vaz [place] [address] PCP - General 09/30/18 documented as of this encounter
--- OUTSIDE RECORDS SUMMARY | 2024-07-30 02:55 | XMS_ITS | Encounter Summary ---
Author Organization [facility] Address [address] [place] [address] Care Team Providers Care Print Manager Name Role Phone Ren Vaz MD Primary Care Provider Reason for Visit * Reason Comments Pituitary Abnormality Encounter Details Date Type Department Care Team (Latest Contact Info) Description 05/26/2019 11:40 EST Office Visit [facility] Endocrinology - [facility] [address] [place] [address] Jr Salas, DO [address] [facility] [address] [place] [address] Secondary adrenal insufficiency (HCC-CMS) (Primary [...] 5. Dr. Salas to schedule DXA at [facility] documented in this encounter Progress Notes * [...] currently living in his own home in [place], [place]. He has 2 caretakers are with [...] imtiaz. Unfortunately, Miguel Angel was hospitalized at [facility] from 09/02/2017 until 03/12/2018 due to [...] as his follow- up endocrinology visit at [facility]. ?? With regards to his secondary [...] receive his endocrine care here at the [facility] despite living in [place]. However, if he is hospitalized he will likely be sent to [facility] and I be happy to coordinate with our endocrinology group as needed. 8. Will obtain previous DEXA scan performed at [facility] and reorder scan. 9. Given his testosterone deficiency, secondary to insufficiency, and history of fracture. Once I have his DEXA data I think a one-time consultation to the metabolic bone clinic to discuss bone health and subsequent need for possible treatment is prudent. This will be done here at the [facility] endocrine clinic. documented in this encounter Miscellaneous Notes * Addendum Note - Jr Salas DO - 05/26/2019 1140 ESTAddended by: JR SALAS on: 05/26/2019 12:45 Modules accepted: Orders documented in this encounter Plan of Treatment Upcoming Encounters Date Type Department Care Team (Late st Contact Info) Description 10/01/2024 13:40 EDT Office Visit [facility] Endocrinology - [facility] [address] [place], [place] [phone] Jr Salas DO [address] [facility] [address] [place] [phone] documented as of this encounter Visit Diagnoses [...] 07/06/2024 added in this encounter Care Teams Print Manager Relationship Specialty Start Date End Date Ren Vaz MD [facility] [place] [address] PCP - General 09/30/18 documented as of this encounter
--- OUTSIDE RECORDS SUMMARY | 2024-07-30 02:55 | XMS_ITS | Encounter Summary ---
Author Organization [facility] Address [address] [place] [address] Care Team Providers Care Creamery Worker Name Role Phone Ren Vaz MD Primary Care Provider [phone] Reason for Visit * Reason Onset Date Comments Coordination Of Care 01/05/2020 Encounter Details Date Type Department Care Team (Late st Contact Info) Description 01/05/2020 Telephone [facility] Endocrinology - [facility] [address] [place] [address] Wilder Zaidi, 62 [facility] [address] [place] [address] Coordination Of Care Social History [...] EDT Electronically faxed requested information back to [facility]. * Telephone Encounter - Carmel Muniz - 01/05/2020 0908 EDT Raphael with [facility] following up on the referral. They have received it but need a [facility] problem list as well. Please fax to [phone]. documented in this encounter Plan of Treatment Upcoming Encounters Date Type Department Care Team (Late st Contact Info) Description 10/01/2024 13:40 EDT Office Visit [facility] Endocrinology - [facility] [address] [place] [address] Wilder Zaidi, 62 [facility] [address] [place] [address] documented as of this encounter Visit Diagnoses Not on filedocumented in this encounter Care Teams Creamery Worker Relationship Specialty Start Date End Date Ren Vaz MD [facility] [place] [address] PCP - General 09/30/18 documented as of this encounter
--- OUTSIDE RECORDS SUMMARY | 2024-07-30 02:56 | XMS_ITS | Encounter Summary ---
Author Organization [facility] Address [address] [place] [address] Care Team Providers Care Health Care Specialist Name Role Phone Emilee Cody MD Primary Care Provider + Reason for Visit * Reason Onset Date Comments Discuss Test Results 06/25/201606/21 @[facility] Discuss Test Results 06/25/2016 Sodium Results 07/04/2016 Encounter Details Date Type Department Care Team (Late st Contact Info) Description 06/25/2016 Telephone [facility] Endocrinology - [facility] [address] [place] [address] Wilder Zaidi DO [address] [facility] [address] [place] [address] Discuss Test Results (06/21 @[facility]); Discuss Test Results (Sodium); Results Social [...] Encounter - Jennifer Au RN - 07/10/2016 1817 EST Spoke to Jessika and relayed Dr. Pa recommendation to recheck labs in 3 months./JOSE * Telephone Encounter - Wilder Zaidi DO - 07/10/2016 1431 EST No change. Sodium in normal range. Recheck in 3 moths or if there is change in behavior or clinicalstatus. * Telephone Encounter - Jennifer Au RN - 07/10/2016 1317 EST Called [facility] looking for latest sodium labs from 07/09. Sodium remains at 140. * Telephone Encounter - Jennifer Au RN - 07/08/2016 1009 EST Spoke with - at [facility], confirming that Miguel Angel is on fluid restrictions of 110 ounces daily. Willhave sodium drawn tomorrow at [facility]. /JOSE * Telephone Encounter - Wilder [...] Maxine Roy - 07/04/2016 0927 EST Lali @[facility] states his sodium level was drawn on 06/21 @[facility] and was at 140. Requesting Dr[address] Pa advice as to when to re-test. * Telephone Encounter - Patrica Mari - 07/03/2016 1501 EST Lali calling for Sodium test result. Please call. * Telephone Encounter - Maxine Roy - 06/25/2016 0900 EST Jose Manuel checking to see if the pt's lab results from 06/21 have been received from [facility]. documented in this encounter Plan of Treatment Upcoming Encounters Date Type Department Care Team (Late st Contact Info) Description 10/01/2024 13:40 EDT Office Visit [facility] Endocrinology - [facility] [address] [place], [place] [phone] Wilder Zaidi, DO [address] [facility] [address] [place] [address] documented as of this encounter Visit Diagnoses Not on filedocumented in this encounter Care Teams Health Care Specialist Relationship Specialty Start Date End Date Emilee Cody MD [address] [place] [address] PCP - General 03/15/16 09/29/18 documented as of this encounter
--- OUTSIDE RECORDS SUMMARY | 2024-07-30 02:56 | XMS_ITS | Encounter Summary ---
Author Organization [facility] Address [address] [place] [address] Care Team Providers Care Svp Marketing Name Role Phone Yossi Torres MD Primary Care Provider [phone] Reason for Visit * Reason Onset Date Comments Discuss Test Results 10/19/2015 Lab work Encounter Details Date Type Department Care Team (Late st Contact Info) Description 10/19/2015 Telephone [facility] Endocrinology - [facility] [address] [place] [address] Wilder Zaidi DO [address] [facility] [address] [place] [address] Discuss Test Results (Lab work) [...] 10/19/2015 1141 EDT Phone call to [facility] in [place] Faxing results from 10/17/15 Sodium 140 (136-145) * Telephone Encounter - Josefina Rivera - 10/19/2015 1041 EDT Reason for Call: Discuss Test Results Summary/Symptoms: Lali Denise from [facility] is wanting the lab results for this patient. Please call back. Spoke with [place] and results were not in yet. Josefina Rivera 10/19/2015 10:41 documented in this encounter Plan of Treatment Upcoming Encounters Date Type Department Care Team (Late st Contact Info) Description 10/01/2024 13:40 EDT Office Visit [facility] Endocrinology - [facility] [address] [place] [address] Wilder Zaidi DO [address] [facility] [address] [place] [address] documented as of this encounter Visit Diagnoses Not on filedocumented in this encounter Care Teams Svp Marketing Relationship Specialty Start Date End Date Yossi Torres MD [address] [place] [address] [address] [place] [phone] PCP - General 04/17/11 03/14/16 documented as of this encounter
--- OUTSIDE RECORDS SUMMARY | 2024-07-30 02:56 | XMS_ITS | Encounter Summary ---
Author Organization [facility] Address [address] [place] [address] Care Team Providers Care Environmental Services Assistant Name Role Phone Emilee Cody MD Primary Care Provider + Reason for Visit * Reason Onset Date Comments Medication Problem 07/12/2016 needs overrid e Encounter Details Date Type Department Care Team (Late st Contact Info) Description 07/12/2016 Telephone [facility] Endocrinology - [facility] [address] [place] [address] Wilder Zaidi, 62 [facility] [address] [place] [address] Medication Problem (needs override) Social [...] Info) Description 10/01/2024 13:40 EDT Office Visit [facility] Endocrinology - [address] [address] Wilder Zaidi, [address] [facility] [address] [place] [address] documented as of this encounter Visit Diagnoses Not on filedocumented in this encounter Discontinued Medications Medication Sig Discontinue Reason Start Date End Da te levothyroxine (SYNTHROID) 150 mcg tablet TAKE ONE TABLET BY MOUTH EVERY DAY/ Blister pack Reorder 06/14/2016 07/12/2016 documented as of this encounter Care Teams Environmental Services Assistant Relationship Specialty Start Date End Date Emilee Cody MD [address] [place] [address] PCP - General 03/15/16 09/29/18 documented as of this encounter
--- OUTSIDE RECORDS SUMMARY | 2024-07-30 02:56 | XMS_ITS | Encounter Summary ---
Author Organization [facility] Address [address] [place] [address] Care Team Providers Care Hairspring Setter Name Role Phone Emilee Cody MD Primary Care Provider + Reason for Visit * Reason Onset Date Comments Results 04/14/2017 Encounter Details Date Type Department Care Team (Late st Contact Info) Description 04/14/2017 Telephone [facility] Endocrinology - [address] [address] Hafsa Babcock RN [address] [place] [address] Results Social History Tobacco Use Types Packs/Day [...] Encounter - Hafsa Babcock RN - 04/14/2017 2401 EDT Called Patients' sister Bettina to inform her lab results within normal limits , No change in DDAVP dosage. Please extend information to custodial. documented in this encounter Plan of Treatment Upcoming Encounters Date Type Department Care Team (Late st Contact Info) Description 10/01/2024 13:40 EDT Office Visit [facility] Endocrinology - [address], [place] [address] Wilder Zaidi DO [address] [facility] [address] [place] [address] documented as of this encounter Visit Diagnoses Not on filedocumented in this encounter Care Teams Hairspring Setter Relationship Specialty Start Date End Date Emilee Cody MD [address] [place] [address] PCP - General 03/15/16 09/29/18 documented as of this encounter
--- OUTSIDE RECORDS SUMMARY | 2024-07-30 02:56 | XMS_ITS | Encounter Summary ---
Author Organization [facility] Address [address] [place] [address] Care Team Providers Care Hyperbaric Tech Name Role Phone Yossi Torres MD Primary Care Provider [phone] Reason for Visit * Reason Onset Date Comments Results 08/04/2014 Encounter Details Date Type Department Care Team (Late Contact Info) Description 08/04/2014 Telephone [facility] Endocrinology - [facility] [address] [place] [address] Wilder Zaidi, 62 [facility] [address] [place] [address] Results Social [...] Office Visit [facility] Endocrinology - [place] [address] [place], [place] [phone] Wilder Zaidi, DO [address] [facility] [address] [place] [address] documented as of this encounter Visit Diagnoses Not on filedocumented in this encounter Care Teams Hyperbaric Tech Relationship Specialty Start Date End Date Yossi Torres MD [address] [place] [address] [address] [place] [phone] PCP - General 04/17/11 03/14/16 documented as of this encounter
--- OUTSIDE RECORDS SUMMARY | 2024-07-30 02:56 | XMS_ITS | Encounter Summary ---
Author Organization [facility] Address [address] [place] [address] Care Team Providers Care [employer] School Special Education Teacher Name Role Phone Emilee Cody MD Primary Care Provider + Ren Vaz MD Primary Care Provider [phone] Encounter Details Date Type Department Care Team (Late st Contact Info) Description 03/15/2018 Historical Results Only [facility] - Main [address] [address] Delfino Gallegos MD [address] [place] [address] [place] [address] Social History Tobacco Use Types Packs/Day [...] 10/01/2024 13:40 EDT Office Visit [facility] Endocrinology - [facility] [address] [place] [address] Wilder Zaidi, 62 [facility] [address] [place] [address] documented as of this encounter [...] filedocumented in this encounter Care Teams [employer] Special Education Teacher Relationship Specialty Start Date End Date Emilee Cody MD [address] [place] [address] PCP - General 03/15/16 09/29/18 Ren Vaz MD [facility] [place] [address] PCP - General 09/30/18 documented as of this encounter
--- OUTSIDE RECORDS SUMMARY | 2024-07-30 02:56 | XMS_ITS | Encounter Summary ---
Author Organization [facility] Address [address] [place] [address] Care Team Providers Care Drug Safety Associate Name Role Phone Yossi Torres MD Primary Care Provider [phone] Reason for Visit * Reason Onset Date Comments Follow-up 03/31/2015 Encounter Details Date Type Department Care Team (Late st Contact Info) Description 03/31/2015 Telephone [facility] Endocrinology - [facility] [address] [place] [address] Wilder Zaidi, 62 [facility] [address] [place] [address] Follow-up Social History Tobacco Use [...] EDT Phone call to Lali (nurse at [facility]) Left message on her personal voice mail Per Dr. Zaidi please repeat Sodium level on Friday04/03/15. Sodium level was 146 ([id number]) * Telephone Encounter - Addie Burgess - 03/31/2015 1010 EDT Reason for Call: Follow-up Summary/Symptoms: Lali (RN) requesting a call back when nurses receive pt's sodium levels from [facility]. Addiemagali Burgess 03/31/2015 10:10 documented in this encounter Plan of Treatment Upcoming Encounters Date Type Department Care Team (Late st Contact Info) Description 10/01/2024 13:40 EDT Office Visit [facility] Endocrinology - [facility] [address] [place] [address] Wilder Zaidi, 62 [facility] [address] [place] [address] documented as of this encounter Visit Diagnoses Not on filedocumented in this encounter Care Teams Drug Safety Associate Relationship Specialty Start Date End Date Yossi Torres MD [address] [place] [address] [address] [place] [phone] PCP - General 04/17/11 03/14/16 documented as of this encounter
--- OUTSIDE RECORDS SUMMARY | 2024-07-30 02:56 | XMS_ITS | Encounter Summary ---
Author Organization [facility] Address [address] [place] [address] Care Team Providers Care Opto Mechanical Technician Name Role Phone Yossi Torres MD Primary Care Provider [phone] Reason for Visit * Reason Comments Seizures * Referral (Routine) - Closed Specialty Diagnoses / Procedures Referred By Duyen bui Referred To Contact Neurology Diagnoses Seizure ([facility]) Yossi Torres MD Phone: tel: fax: [facility] Neurology [facility] [address] [place] [address] Phone: tel: fax: Referral ID Status Reason Start Date Expiration Date Visits Re quested Visits Authorized [id number] Closed 1 1 Encounter Details Date Type Department Care Team (Late st Contact Info) Description 12/27/2014 10:30 EDT Office Visit [facility] Neurology [facility] [address] [place], [place] [id number] Dioni Jovel MD [address] [place] [address] Seizure disorder ([facility]) (Primary Dx) Social History Tobacco Use Types [...] patient was accompanied by his guardian and warehouse production worker. I also reviewed records from [facility]. The patient's past medical history is significant [...] was with home provider [facility] the [facility] he had a spell where he was [...] general anesthesia. He is also followed with forensic accountant for hypoglycemia and panhypopituitarism. He will follow with me in a few months or sooner if problems come. Dioni Jovel MD 11 13 AM - Dioni Jovel MD cn Dictation ID: [id number] documented in this encounter Plan of Treatment Upcoming Encounters Date Type Department Care Team (Late st Contact Info) Description 10/01/2024 13:40 EDT Office Visit [facility] Endocrinology - [place] [address] [place] [address] Wilder Zaidi, 62 [facility] [address] [place] [address] documented as of this encounter Visit Diagnoses Diagnosis Seizure disorder ([facility])- Primary Unspecified epilepsy without mention of intractable epilepsy documented in this encounter Discontinued Medications Medication Sig Discontinue Reason Start Date End Da te ZONISAMIDE ORAL Take 75 mg by mouth at bedtime. 08/24/2010 12/27/2014 documented as of this encounter Care Teams Opto Mechanical Technician Relationship Specialty Start Date End Date Yossi Torres MD [address] [place] [address] [address] [place] [phone] PCP - General 04/17/11 03/14/16 documented as of this encounter
--- OUTSIDE RECORDS SUMMARY | 2024-07-30 02:56 | XMS_ITS | Encounter Summary ---
Author Organization [facility] Address [address] [place] [address] Care Team Providers Care Plater Helper Name Role Phone Yossi Torres MD Primary Care Provider +1 [phone] Reason for Visit * Reason Onset Date Comments Update 04/17/2015 Encounter Details Date Type Department Care Team (Late st Contact Info) Description 04/17/[address] [facility] Endocrinology - [facility] [address] [place] [address] Wilder Zaidi, [address] [facility] [address] [place] [address] Update Social History Tobacco Use [...] Reason for Call: Update Summary/Symptoms: Lali from intermediate looking for pt's sodium levels. Addie Burgess 04/17/2015 11:20 documented in this encounter Plan of Treatment Upcoming Encounters Date Type Department Care Team (Late st Contact Info) Description 10/01/2024 13:40 EDT Office Visit [facility] Endocrinology - [facility] [address] [place] [address] Wilder Zaidi, DO [address] [facility] [address] [place] [address] documented as of this encounter Visit Diagnoses Not on filedocumented in this encounter Care Teams Plater Helper Relationship Specialty Start Date End Date Yossi Torres MD [address] [place] [address] [address] [place] [phone] PCP - General 04/17/11 03/14/16 documented as of this encounter
--- OUTSIDE RECORDS SUMMARY | 2024-07-30 02:56 | XMS_ITS | Encounter Summary ---
Author Organization [facility] Address [address] [place] [address] Care Team Providers Care Operations Section Manager Name Role Phone Yossi Torres MD Primary Care Provider +1 [phone] Reason for Visit * Reason Onset Date Comments Prior Auth, Medication 01/17/2015 Encounter Details Date Type Department Care Team (Late st Contact Info) Description 01/17/2015 Telephone [facility] Endocrinology - [facility] [address] [place] [address] Wilder Zaidi, [address] [facility] [address] [place] [address] Prior Auth, Medication Social History [...] - 01/19/2015 1650 EDT Lisseth fax from [place] Medicaid with APPROVAL for: Drug NDC # and Name: [id number] - Levothyroxin Tab 150 mcg Tracking #: [id number] PA #: [id number] Dates: 01/19/2015- 01/20/2016 Qty / Days Supply Restrictions: [place] Medicaid ID#: [id number] Called Pharmacy and they had all ready blister packed and ready to go as soon as we provided approval. * Telephone Encounter - Lucía Bundy - 01/18/2015 1104 EDT [facility] signed form back from Dr. Zaidi and faxed to [place] Medicaid at [phone] to initiate PA process. * Telephone Encounter - Dina Otero - 01/17/2015 1712 EDT Received fax for Levothyroxine override to blister pack - the pharmacy indicates the patient lives in a assisted and they can only fill 30 day supply at a time. Completed [place] Exception to required 90 day maintenance medication fill form & provided to Dr. Zaidi for signature. * Telephone Encounter - Gladys Willingham - 01/17/2015 0908 EDT Reason for Call: Prior Auth, Medication Summary/SymptomsPt said that [facility] needs PA for levothyroxine 30 day supply not 90 day supply for bubble wrap. Please call if you have questions. Onset and Duration? na Urgent? Gladys Willingham 01/17/2015 9:08 documented in this encounter Plan of Treatment Upcoming Encounters Date Type Department Care Team (Late st Contact Info) Description 10/01/2024 13:40 EDT Office Visit [facility] Endocrinology - [facility] [address] [place] [address] Wilder Zaidi, DO [address] [facility] [address] [place] [address] documented as of this encounter Visit Diagnoses Not on filedocumented in this encounter Care Teams Operations Section Manager Relationship Specialty Start Date End Date Yossi Torres MD [address] [place] [address] [address] [place] [phone] PCP - General 04/17/11 03/14/16 documented as of this encounter
--- OUTSIDE RECORDS SUMMARY | 2024-07-30 02:56 | XMS_ITS | Encounter Summary ---
Author Organization [facility] Address [address] [place] [address] Care Team Providers Care Key Sander Name Role Phone Yossi Torres MD Primary Care Provider +[phone] Reason for Visit * Reason Onset Date Comments Results 10/13/2015 Encounter Details Date Type Department Care Team (Late st Contact Info) Description 10/13/2015 Telephone [facility] Endocrinology - [facility] [address] [place] [address] Belgica Chavez BRENNEN [address] [facility] [address] [place] [address] Results Social History Tobacco Use [...] Telephone Encounter - Belg[place] Chavez - 10/13/2015 120 EDT Spoke to lali about Bettina fluid [...] Info) Description 10/01/2024 13:40 EDT Office Visit [facility] Endocrinology - [facility] [address] [place] [address] Wilder Zaidi, 62 [facility] [address] [place] [address] documented as of this encounter Visit Diagnoses Not on filedocumented in this encounter Care Teams Key Sander Relationship Specialty Start Date End Date Yossi Torres MD [address] [place] [address] 2 [place] [address] PCP - General 04/17/11 03/14/16 documented as of this encounter
--- OUTSIDE RECORDS SUMMARY | 2024-07-30 02:56 | XMS_ITS | Encounter Summary ---
Author Organization [facility] Address [address] [place] [address] Care Team Providers Care Levelman Name Role Phone Yossi Torres MD Primary Care Provider [phone] Reason for Visit * Reason Onset Date Comments Discuss Test Results 05/18/2015 Encounter Details Date Type Department Care Team (Late st Contact Info) Description 05/18/2015 Telephone [facility] Endocrinology - [facility] [address] [place] [address] Wilder Zaidi, 62 [facility] [address] [place] [address] Discuss Test Results Social History [...] 05/18/2015 1544 EST Sodium 143 from [facility]. * Telephone Encounter - Tracy Nunez - 05/18/2015 0773 EST Reason for Call: Discuss Test Results Summary/Symptoms: Sodium results done Friday @ [facility] Tracy Magdalenobrad 05/18/2015 13:44 documented in this encounter Plan of Treatment Upcoming Encounters Date Type Department Care Team (Late st Contact Info) Description 10/01/2024 13:40 EDT Office Visit [facility] Endocrinology - [facility] [address] [place] [address] Wilder Zaidi, 62 [facility] [address] [place] [address] documented as of this encounter Visit Diagnoses Not on filedocumented in this encounter Care Teams Levelman Relationship Specialty Start Date End Date Yossi Torres MD [address] [place] [address] [facility] [address] [place] [phone] PCP - General 04/17/11 03/14/16 documented as of this encounter
--- OUTSIDE RECORDS SUMMARY | 2024-07-30 02:56 | XMS_ITS | Encounter Summary ---
Author Organization [facility] Address [address] [place] [address] Care Team Providers Care Public Welfare Director Name Role Phone Yossi Torres MD Primary Care Provider +[phone]- [phone] Reason for Visit * Reason Onset Date Comments Discuss Test Results 06/20/201506/12 [facility] Encounter Details Date Type Department Care Team (Late st Contact Info) Description 06/20/2015 Telephone [facility] Endocrinology - [facility] [address] [place] [address] Wilder Zaidi DO 62 [facility] [address] [place] [address] Discuss Test Results (06/12 [facility] ) Social History Tobacco Use Types Packs/Day [...] Call: Discuss Test Results Summary/Symptoms: Lali from [facility] calling for results. States kabs were done 06/12 [facility]. Please call. Jen Sanchez 06/20/2015 15:22 documented in this encounter Plan of Treatment Upcoming Encounters Date Type Department Care Team (Late st Contact Info) Description 10/01/2024 13:40 EDT Office Visit [facility] Endocrinology - [facility] [address] [place] [address] Wilder Zaidi DO 62 [facility] [address] [place] [phone] documented as of this encounter Visit Diagnoses Not on filedocumented in this encounter Care Teams Public Welfare Director Relationship Specialty Start Date End Date Yossi Torres MD [address] [place] [address] [address] [place] [phone] PCP - General 04/17/11 03/14/16 documented as of this encounter
--- OUTSIDE RECORDS SUMMARY | 2024-07-30 02:56 | XMS_ITS | Encounter Summary ---
Author Organization [facility] Address [address] [place] [address] Care Team Providers Care Tab Card Press Operator Name Role Phone Yossi Torres MD Primary Care Provider [phone] Reason for Visit * Reason Onset Date Comments Medications Refill 08/29/2014 Encounter Details Date Type Department Care Team (Late st Contact Info) Description 08/29/2014 Refill [facility] Endocrinology - [facility] [address] [place] [address] Wilder Zaidi DO 62 [facility] [address] [place] [address] Medications Refill Social History Tobacco [...] gram (1.62 %) transdermal gel pumpIndications:Jose nhypopituitarism ([facility]) Apply 1 pump actuation topically daily Daily Max: 20.25 mg 75 g 3 08/29/2014 5 documented in this encounter Miscellaneous Notes * Telephone Encounter - Chavez, Belg[place] - 09/02/2014 0950 EST Androgel refill phoned in to pharmacy [facility] in [place]. 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 Reorder 02/03/2014 08/29/2014 documented as of this encounter Care Teams Tab Card Press Operator Relationship Specialty Start Date End Date Yossi Torres MD [address] [place] [address] [address] [place] [phone] PCP - General 04/17/11 03/14/16 documented as of this encounter
--- OUTSIDE RECORDS SUMMARY | 2024-07-30 02:56 | XMS_ITS | Encounter Summary ---
Author Organization [facility] Address [address] [place] [address] Care Team Providers Care Farm Operator Name Role Phone Emilee Cody MD Primary Care Provider + Reason for Visit * Reason Onset Date Comments Discuss Test Results 06/13/2016 Encounter Details Date Type Department Care Team (Late st Contact Info) Description 06/13/2016 Telephone [facility] Endocrinology - [facility] [address] [place] [address] Wilder Zaidi, 62 [facility] [address] [place] [address] Discuss Test Results Social [...] Telephone Encounter - Tracy Cowan - 06/13/2016 4528 EST Lali from [facility] calling for sodium results drawn a few weeks ago @ [facility] documented in this encounter Plan of Treatment Upcoming Encounters Date Type Department Care Team (Late st Contact Info) Description 10/01/2024 13:40 EDT Office Visit [facility] Endocrinology - [facility] [address] [place], [place] [address] Wilder Zaidi, 62 [facility] [address] [place] [address] documented as of this encounter Visit Diagnoses Not on filedocumented in this encounter Care Teams Farm Operator Relationship Specialty Start Date End Date Emilee Cody MD [address] [place] [address] PCP - General 03/15/16 09/29/18 documented as of this encounter
--- OUTSIDE RECORDS SUMMARY | 2024-07-30 02:56 | XMS_ITS | Encounter Summary ---
Author Organization [facility] Address [address] [place] [address] Care Team Providers Care Care Services Manager Name Role Phone Yossi Torres MD Primary Care Provider [phone] Emilee Cody MD Primary Care Provider + Reason for Visit * Reason Onset Date Comments Results 08/05/2014 Encounter Details Date Type Department Care Team (Late st Contact Info) Description 08/05/2014 Telephone [facility] Endocrinology - [facility] [address] [place] [address] Wilder Zaidi DO 62 [facility] [address] [place] [address] Results Social History Tobacco Use [...] 1317 EST Received faxed lab results from [facility] [place] [facility] Sodium--145 Range (137-145) * [...] Description 10/01/2024 13:40 EDT Office Visit [facility] Endocrinology - [facility] [address] [place] [address] Wilder Zaidi DO 62 [facility] [address] [place] [phone] documented as of this encounter Visit Diagnoses Not on filedocumented in this encounter Care Teams Care Services Manager Relationship Specialty Start Date End Date Yossi Torres MD [address] [place] [phone] PCP - General 04/17/11 03/14/16 Emilee Cody MD [address] [place] [address] PCP - General 03/15/16 09/29/18 documented as of this encounter
--- OUTSIDE RECORDS SUMMARY | 2024-07-30 02:56 | XMS_ITS | Encounter Summary ---
Author Organization [facility] Address [address] [place] [address] Care Team Providers Care Real Estate Investment Analyst Name Role Phone Yossi Torres MD Primary Care Provider +[phone] Reason for Visit * Reason Onset Date Comments Medications Refill 03/14/2015 Encounter Details Date Type Department Care Team (Late st Contact Info) Description 03/14/2015 Refill [facility] Endocrinology - [facility] [address] [place] [address] Wilder Zaidi, 62 [facility] [address] [place] [address] Medications Refill Social History Tobacco [...] gram (1.62 %) transdermal gel pumpIndications:Jose nhypopituitarism ([facility]) Apply 3 pump actuations topically daily for 90 days Daily Max: 60.75 mg 337.5 g 0 03/15/2015 4 documented in this encounter Miscellaneous Notes * Telephone Encounter - Georgia Rice RN - 03/15/2015 1413 EDT Phone call to [facility] pharmacist I called in the Androgel, but it needs a PA, they said they faxed it 2 days ago.? I had them refax,and will give to front staff. * Telephone Encounter - Addie Burgess - 03/14/2015 1313 EDT Medication(s) Requested: [facility] Last Refill Date: 11/08/14 Last Visit Date: 08/04/14 Next Visit Date: 10/23/2015 Is patient out of medication? yes Addie Burgess 03/14/2015 13:13 documented in this encounter Plan of Treatment Upcoming Encounters Date Type Department Care Team (Late st Contact Info) Description 10/01/2024 13:40 EDT Office Visit [facility] Endocrinology - [address] [address] Wilder Zaidi, DO [address] [facility] [address] [place] [address] documented as of this encounter [...] documented as of this encounter Care Teams Real Estate Investment Analyst Relationship Specialty Start Date End Date Yossi Torres MD [address] [place] [address] [address] [place] [phone] PCP - General 04/17/11 03/14/16 documented as of this encounter
--- OUTSIDE RECORDS SUMMARY | 2024-07-30 02:56 | XMS_ITS | Encounter Summary ---
Author Organization [facility] Address [address] [place] [address] Care Team Providers Care Speech Communication Professor Name Role Phone Emilee Cody MD Primary Care Provider + Reason for Visit * Reason Onset Date Comments Results 06/02/2017 Encounter Details Date Type Department Care Team (Late st Contact Info) Description 06/02/[address] [facility] Endocrinology - [facility] [address] [place] [address] Wilder Zaidi DO 62 [facility] [address] [place] [address] Results Social History Tobacco Use [...] Encounter - Jennifer Au RN - 06/03/2017 8106 EST Relayed to safety and health manager of [facility] the sodium results of 05/28 with no [...] EDT Office Visit [facility] Endocrinology - [facility] [address] [place] [address] Wilder Zaidi DO [address] [facility] [address] [place] [address] documented as of this encounter Visit Diagnoses Not on filedocumented in this encounter Care Teams Speech Communication Professor Relationship Specialty Start Date End Date Emilee Cody MD [address] [place] [address] PCP - General 03/15/16 09/29/18 documented as of this encounter
--- OUTSIDE RECORDS SUMMARY | 2024-07-30 02:56 | XMS_ITS | Encounter Summary ---
Author Organization [facility] Address [address] [place] [address] Care Team Providers Care Van Driver Helper Name Role Phone Emilee Cody MD Primary Care Provider + Ren Vaz MD Primary Care Provider Reason for Visit * Reason Onset Date Comments Medications Refill 08/07/2017 Encounter Details Date Type Department Care Team (Late st Contact Info) Description 08/07/2017 Refill [facility] Endocrinology [facility] [address] [place] [address] Carlito Paul MD [address] [place] [address] [address] [place] [address] Medications Refill Social History Tobacco [...] Visit [facility] Endocrinology [facility] [address] [place] [address] Wilder Zaidi DO 62 [facility] [address] [place] [address] documented as of this encounter Visit Diagnoses Not on filedocumented in this encounter Care Teams Van Driver Helper Relationship Specialty Start Date End Date Emilee Cody MD [address] [place] [address] PCP - General 03/15/16 09/29/18 Ren Vaz MD [address] [place] [address] [place] [address] PCP - General 09/30/18 documented as of this encounter
--- OUTSIDE RECORDS SUMMARY | 2024-07-30 02:56 | XMS_ITS | Encounter Summary ---
Author Organization [facility] Address [address] [place] [address] Care Team Providers Care Kitchen Runner Name Role Phone Yossi Torres MD Primary Care Provider [phone] Emilee Cody MD Primary Care Provider + Reason for Visit * Reason Onset Date Comments Results 08/05/2014 Encounter Details Date Type Department Care Team (Late st Contact Info) Description 08/05/2014 Telephone [facility] Endocrinology - [facility] [address] [place] [address] Wilder Zaidi DO [address] [facility] [address] [place] [address] Results Social History Tobacco Use [...] Encounter - Wilder Zaidi DO - 08/05/2014 0825 EST Spoke with sister. They held his [...] patient's most recent laboratory results from the [place] [facility] dated 08/04/14 . Advise patient that [...] Visit [facility] Endocrinology - [facility] [address] [place] [address] Wilder Zaidi DO [address] [facility] [address] [place] [address] documented as of this encounter Visit Diagnoses Not on filedocumented in this encounter Care Teams Kitchen Runner Relationship Specialty Start Date End Date Yossi Torres MD [address] [place] [address] [address] [place] [phone] PCP - General 04/17/11 03/14/16 Emilee Cody MD [address] [place] [address] PCP - General 03/15/16 09/29/18 documented as of this encounter
--- OUTSIDE RECORDS SUMMARY | 2024-07-30 02:56 | XMS_ITS | Encounter Summary ---
Author Organization [facility] Address [address] [place] [address] Care Team Providers Care Adjustment Examiner Name Role Phone Ren Vaz MD Primary Care Provider [phone] Reason for Visit * Reason Comments Pituitary Abnormality Encounter Details Date Type Department Care Team (Latest Contact Info) Description 10/01/2018 13:20 EDT Office Visit [facility] Endocrinology - [facility] [address] [place] [id number] Wilder Zaidi, DO 62 [facility] [address] [place] [address] 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HCC-CMS) (Primary Dx); Primary [...] directly via e-mail with any scheduling issues ([email or web address]) documented in this encounter Progress Notes * [...] currently living in his own home in [place], [place]. He has 2 caretakers are with him 24 hours a day and administer all of his medications. Appears to be doing extremely well. This is the most interactive I seen Miguel Angel in any visit in the manyyears I been taking care of him. Unfortunately, Miguel Angel was hospitalized at [facility] from 09/02/2017 until 03/12/2018 due to [...] as his follow- up endocrinology visit at [facility]. ?? With regards to his secondary [...] unchanged. No need to stress dose. His ski production supervisor was able to articulate how and when [...] the [facility] despite living in [place]. However, if he is hospitalized he will likely be sent to [facility] and I be happy to coordinate with our endocrinology group as needed. documented in this encounter Plan of Treatment Upcoming Encounters Date Type Department Care Team (Late st Contact Info) Description 10/01/2024 13:40 EDT Office Visit [facility] Endocrinology - [facility] [address] [place], [place] [address] Wilder Zaidi, 62 [facility] [address] [place] [address] documented as of this encounter [...] 07/06/2024 added in this encounter Care Teams Adjustment Examiner Relationship Specialty Start Date End Date Ren Vaz MD [address] [place] [address] PCP - General 09/30/18 documented as of this encounter
--- OUTSIDE RECORDS SUMMARY | 2024-07-30 02:56 | XMS_ITS | Encounter Summary ---
Author Organization [facility] Address [address] [place] [address] Care Team Providers Care Punch Press Setter Name Role Phone Yossi Torres MD Primary Care Provider [phone] Reason for Visit * Reason Onset Date Comments Results 05/02/2015 Encounter Details Date Type Department Care Team (Late st Contact Info) Description 05/02/[address] [address] Gladys Huang RN Results Social [...] Info) Description 10/01/2024 13:40 EDT Office Visit [facility] Endocrinology [facility] [address] [place] [address] Wilder Zaidi, 62 [facility] [address] [place] [address] documented as of this encounter Visit Diagnoses Not on filedocumented in this encounter Care Teams Punch Press Setter Relationship Specialty Start Date End Date Yossi Torres MD [address] [place] [address] [address] [place] [phone] PCP - General 04/17/11 03/14/16 documented as of this encounter
--- OUTSIDE RECORDS SUMMARY | 2024-07-30 02:56 | XMS_ITS | Encounter Summary ---
Author Organization [facility] Address [address] [place] [address] Care Team Providers Care Investment Director Name Role Phone Yossi Torres MD Primary Care Provider +1- [phone] Reason for Visit * Reason Onset Date Comments Appointment Related 02/06/2016 was schedule d for 03/18/16 Encounter Details Date Type Department Care Team (Late st Contact Info) Description 02/06/2016 Telephone [facility] Endocrinology - [facility] [address] [place] [address] Wilder Zaidi, [address] [facility] [address] [place] [address] Appointment Related (was scheduled for [...] EDT Reason for Call: Appointment Related Summary/Symptoms: [facility] is wondering when patient's upcoming appointment was. The 03/18/16 was canceled, and not only would they like a call when it is scheduled, but his sister Bettinaas well. Josefina Rivera 02/06/2016 15:04 documented in this encounter Plan of Treatment Upcoming Encounters Date Type Department Care Team (Late st Contact Info) Description 10/01/2024 13:40 EDT Office Visit [facility] Endocrinology - [facility] [address] [place] [address] Wilder Zaidi, [address] [facility] [address] [place] [phone] documented as of this encounter Visit Diagnoses Not on filedocumented in this encounter Care Teams Investment Director Relationship Specialty Start Date End Date Yossi Torres MD [address] [place] [address] [address] [place] [phone] PCP - General 04/17/11 03/14/16 documented as of this encounter
--- OUTSIDE RECORDS SUMMARY | 2024-07-30 02:56 | XMS_ITS | Encounter Summary ---
Author Organization [facility] Address [address] [place] [address] Care Team Providers Care Precision Lathe Operator Name Role Phone Emilee Cody MD Primary Care Provider + Reason for Visit * Reason Comments Pituitary Abnormality Encounter Details Date Type Department Care Team (Latest Contact Info) Description 10/31/2016 13:20 EDT Office Visit [facility] Endocrinology - [facility] [address] [place] [address] Wilder Zaidi, DO [address] [facility] [address] [place] [address] 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HCC-CMS) (Primary Dx); Primary [...] 2004. Miguel Angel was accompanied by the expanded function dental assistant of his fpc. He has been living with 2 other [...] No need to str ess dose. His advocacy director was able to articulate how and when [...] seems stable. ?? LABORATORY DATA: Obtained at [facility] on 10/04/2016 showed a sodium of [...] Description 10/01/2024 13:40 EDT Office Visit [facility] Endocrinology - [facility] [address] [place], [place] [phone] Wilder Zaidi DO [address] [facility] [address] [place] [address] documented as of this encounter Visit Diagnoses Diagnosis 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HCC-CMS)- Primary Panhypopituitarism 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HCC-CMS) Diabetes insipidus documented in this encounter Historical Medications * This list may reflect changes made after this encounter. omeprazole (PRILOSEC) 20 mg capsule Take 2 Capsules by mouth daily. added in this encounter Care Teams Precision Lathe Operator Relationship Specialty Start Date End Date Emilee Cody MD [address] [place] [address] PCP - General 03/15/16 09/29/18 documented as of this encounter
--- OUTSIDE RECORDS SUMMARY | 2024-07-30 02:56 | XMS_ITS | Encounter Summary ---
Author Organization [facility] Address [address] [place] [address] Care Team Providers Care Smash Hand Name Role Phone Emilee Cody MD Primary Care Provider + Reason for Visit * Reason Onset Date Comments Update 04/08/2016 Going to ED Sinus Problems 04/08/2016 Difficulty Walking 04/08/2016 Encounter Details Date Type Department Care Team (Late st Contact Info) Description 04/08/2016 Telephone [facility] Endocrinology - [facility] [address] [place] [address] Wilder Zadii, [address] [facility] [address] [place] [address] Update (Going to ED); Sinus [...] Info) Description 10/01/2024 13:40 EDT Office Visit [facility] Endocrinology - [address] [address] Wilder Zaidi DO [address] [facility] [address] [place] [address] documented as of this encounter Visit Diagnoses Not on filedocumented in this encounter Care Teams Smash Hand Relationship Specialty Start Date End Date Emilee Cody MD [address] [place] [address] PCP - General 03/15/16 09/29/18 documented as of this encounter
--- OUTSIDE RECORDS SUMMARY | 2024-07-30 02:56 | XMS_ITS | Encounter Summary ---
Author Organization [facility] Address [address] [place] [address] Care Team Providers Care Phlebotomy Services Representative Name Role Phone Yossi Torres MD Primary Care Provider +[phone] Reason for Visit * Reason Onset Date Comments Discuss Test Results 02/03/2015 Sodium Leve ls Encounter Details Date Type Department Care Team (Late st Contact Info) Description 02/03/2015 Telephone [facility] Endocrinology - [facility] [address] [place] [address] Wilder Zaidi DO [address] [facility] [address] [place] [address] Discuss Test Results (Sodium Levels) [...] Belgica Chavez - 02/03/2015 0929 EDT Called [facility] drawn 01/31/15 Na level: 141 Unchanged from previous 2 wks ago. Continue current fluid restricton of 80 oz and retest again in 2 wks. * Telephone Encounter - Yany Lauren - 02/03/2015 0901 EDT Reason for Call: Discuss Test Results Summary/Symptoms: Jonatan at [facility] calling to receive [facility] S[facility] levels he had done at [facility]. Please call back to discuss. Jonatan states as soon as possible because he will notbe available all day. Lauren Slade 02/03/2015 9:01 documented in this encounter Plan of Treatment Upcoming Encounters Date Type Department Care Team (Late st Contact Info) Description 10/01/2024 13:40 EDT Office Visit [facility] Endocrinology - [facility] [address] [place] [address] Wilder Zaidi, [address] [facility] [address] [place] [phone] documented as of this encounter Visit Diagnoses Not on filedocumented in this encounter Care Teams Phlebotomy Services Representative Relationship Specialty Start Date End Date Yossi Torres MD [address] [place] [address] [address] [place] [phone] PCP - General 04/17/11 03/14/16 documented as of this encounter
--- OUTSIDE RECORDS SUMMARY | 2024-07-30 02:56 | XMS_ITS | Encounter Summary ---
Author Organization [facility] Address [address] [place] [address] Care Team Providers Care Technical Developer Name Role Phone Yossi Torres MD Primary Care Provider [phone]- [phone] Reason for Visit * Reason Onset Date Comments Diarrhea 08/28/2015 2 days now Medication Questions 08/28/2015 Hydrocortis one Coordination Of Care 08/30/2015 Medication clarification Encounter Details Date Type Department Care Team (Late st Contact Info) Description 08/28/2015 Telephone [facility] Endocrinology - [facility] [address] [place] [address] Wilder Zaidi, [address] [facility] [address] [place] [address] Diarrhea (2 days now); Medication [...] Encounter - Georgia Rice RN - 08/30/2015 1357 EST Phone call to Belgica at the [facility] Miguel Angel is not having diarrhea [...] - 08/30/2015 0820 EST Belgica from [facility] would like to verify the medication that Dr. Stanley wants them to increase the dose on. He continues to have diarrhea. Pls advise * Telephone Encounter - Gladys Huang RN - 08/29/2015 0922 EST Images from the original note were not included. Message Received: Yesterday ? Guerrero Gonzalez MD Sinclair, Barbara, RN ? Yes it should be doubled, the half-way physician should be notified so that he finds out thecause of the diarrhea, double dose as long as she is sick Phone call to [facility]. Above message given. Erick Kidd no longer has diarrhea so will not double dose. Verbalized understanding. No barriers to understanding. * Telephone Encounter - Gladys Huang RN - 08/28/2015 1530 EST Phone call to Adriane at [facility]. Diarrhea since mid day yesterday. Today 4 times since 8 am. No other symptoms. Feeling ok. No fever. Eating well. Drinking good. Will send to Dr. Stanley for review. * Telephone Encounter - Alicia Chi - 08/28/2015 1501 EST Reason for Call: Diarrhea and Medication Questions Summary/Symptoms: Erick Forrest, caregiver at the [facility], pt has had diarrhea for 2 days now and pt's family is wondering if the hydrocortisone should be doubled. Adriane requesting a call back today when a moment. Please call her back at [phone] or [phone]. Alicia Chi 08/28/2015 15:01 documented in this encounter Plan of Treatment Upcoming Encounters Date Type Department Care Team (Late st Contact Info) Description 10/01/2024 13:40 EDT Office Visit [facility] Endocrinology - [facility] [address] [place] [address] Wilder Zaidi, [address] [facility] [address] [place] [address] documented as of this encounter Visit Diagnoses Not on filedocumented in this encounter Care Teams Technical Developer Relationship Specialty Start Date End Date Yossi Torres MD [address] [place] [address] [address] [place] [phone] PCP - General 04/17/11 03/14/16 documented as of this encounter
--- OUTSIDE RECORDS SUMMARY | 2024-07-30 02:56 | XMS_ITS | Encounter Summary ---
Author Organization [facility] Address [address] [place] [address] Care Team Providers Care Supervisor Landscape Name Role Phone Emilee Cody MD Primary Care Provider + Reason for Visit * Reason Onset Date Comments Prior Auth, Medication 07/12/2016 Levothyro xine 150 mcg needs 30 day overide thru Insurance Encounter Details Date Type Department Care Team (Late st Contact Info) Description 07/12/2016 Telephone [facility] Endocrinology - [facility] [address] [place] [address] Wilder Zaidi DO [address] [facility] [address] [place] [address] Prior Auth, Medication (Levothyroxine 150 [...] - 07/15/2016 1403 EST Rcv[place] fax from [place] with APPROVAL for: Drug NDC # and Name: [id number] - LEvothyroxin tab 150 mcg Tracking #: [id number] PA #: [id number] Dates: 07/15/2016 - 07/15/2017 Qty / Days Supply Restrictions: 30.0 / 30 [place] Medicaid ID #: [id number] Called pharmacy - they already rcvd notice and script has been picked up. * Telephone Encounter - Lucía Bundy - 07/15/2016 1155 EST Completed [place] Medicaid [place] Request form and e-filed using [facility] to initiate this process. * Telephone Encounter [...] Office Visit [facility] Endocrinology - [address] [phone] Wilder Zaidi, [address] [facility] [address] [place] [address] documented as of this encounter Visit Diagnoses Not on filedocumented in this encounter Care Teams Supervisor Landscape Relationship Specialty Start Date End Date Emilee Cody MD [address] [place] [address] PCP - General 03/15/16 09/29/18 documented as of this encounter
--- OUTSIDE RECORDS SUMMARY | 2024-07-30 02:56 | XMS_ITS | Encounter Summary ---
Author Organization [facility] Address [address] [place] [address] Care Team Providers Care Gut Sorter Name Role Phone Yossi Torres MD Primary Care Provider +1- [phone] Reason for Visit * Reason Onset Date Comments Results 12/30/2014 Encounter Details Date Type Department Care Team (Late st Contact Info) Description 12/30/2014 Telephone [facility] Endocrinology - [facility] [address] [place] [address] Wilder Zaidi DO [address] [facility] [address] [place] [address] Results Social History Tobacco Use [...] Pt has sodium level testing todayt @ [facility] and caregiver is calling for results. Onset and Duration? na Urgent? Gladys Willingham 12/30/2014 14:15 documented in this encounter Plan of Treatment Upcoming Encounters Date Type Department Care Team (Late st Contact Info) Description 10/01/2024 13:40 EDT Office Visit [facility] Endocrinology - [facility] [address] [place] [address] Wilder Zaidi, [address] [facility] [address] [place] [address] documented as of this encounter Visit Diagnoses Not on filedocumented in this encounter Care Teams Gut Sorter Relationship Specialty Start Date End Date Yossi Torres MD [address] [place] [address] [address] [place] [phone] PCP - General 04/17/11 03/14/16 documented as of this encounter
--- OUTSIDE RECORDS SUMMARY | 2024-07-30 02:56 | XMS_ITS | Encounter Summary ---
Author Organization [facility] Address [address] [place] [address] Care Team Providers Care Airline Transport Pilot Name Role Phone Yossi Torres MD Primary Care Provider +[phone] Reason for Visit * Reason Onset Date Comments Results 04/04/2015 Encounter Details Date Type Department Care Team (Late st Contact Info) Description 04/04/2015 Telephone [facility] Endocrinology - [facility] [address] [place] [address] Belgica Chavez CDE [address] [facility] [address] [place] [address] Results Social History Tobacco Use [...] 1710 EDT Discussed with Lali nurse at [facility]. Advised of plan. She verbalized [...] EDT Office Visit [facility] Endocrinology - [address] [phone] Wilder Zaidi DO [address] [facility] [address] [place] [address] documented as of this encounter Visit Diagnoses Not on filedocumented in this encounter Care Teams Airline Transport Pilot Relationship Specialty Start Date End Date Yossi Torres MD [address] [place] [address] [address] [place] [phone] PCP - General 04/17/11 03/14/16 documented as of this encounter
--- OUTSIDE RECORDS SUMMARY | 2024-07-30 02:56 | XMS_ITS | Encounter Summary ---
Author Organization [facility] Address [address] [place] [address] Care Team Providers Care Bonding Machine Operator Name Role Phone Ren Vaz MD Primary Care Provider Reason for Visit * Reason Onset Date Comments Coordination Of Care 03/24/2019 Encounter Details Date Type Department Care Team (Late st Contact Info) Description 03/24/2019 Telephone [facility] Endocrinology - [facility] [address] [place] [address] Wilder Zaidi, [address] [facility] [address] [place] [address] Coordination Of Care Social History [...] and go to the emergency department. Instructed creative manager to call back with any questions. [...] 1313 EDT Called and left message for creative manager to call back. * Telephone Encounter [...] and possibly have Dr. Zaidi call the [facility] but would like to speak to a nurse first Please call Evelyn back SHEEBA documented in this encounter Plan of Treatment Upcoming Encounters Date Type Department Care Team (Late st Contact Info) Description 10/01/2024 13:40 EDT Office Visit [facility] Endocrinology - [facility] [address] [place] [address] Wilder Zaidi, [address] [facility] [address] [place] [address] documented as of this encounter Visit Diagnoses Not on filedocumented in this encounter Care Teams Bonding Machine Operator Relationship Specialty Start Date End Date Ren Vaz MD [facility] [place] [address] PCP - General 09/30/18 documented as of this encounter
--- OUTSIDE RECORDS SUMMARY | 2024-07-30 02:56 | XMS_ITS | Encounter Summary ---
Author Organization [facility] Address [address] [place] [address] Care Team Providers Care Classics Professor Name Role Phone Emilee Cody MD Primary Care Provider + Reason for Visit * Reason Onset Date Comments Medications Refill 05/27/2017 Encounter Details Date Type Department Care Team (Late st Contact Info) Description 05/27/[address] [facility] Endocrinology - [facility] [address] [place] [address] Wilder Zaidi, [address] [facility] [address] [place] [address] Medications Refill Social History Tobacco [...] Visit [facility] Endocrinology - [facility] [address] [place] [address] Wilder Zaidi, [address] [facility] [address] [place] [address] documented as of this encounter Visit Diagnoses Not on filedocumented in this encounter Discontinued Medications Medication Sig Discontinue Reason Start Date End Da te levothyroxine (SYNTHROID) 150 mcg tablet TAKE ONE TABLET BY MOUTH EVERY DAY/ Blister pack Reorder 07/12/2016 05/27/2017 documented as of this encounter Care Teams Classics Professor Relationship Specialty Start Date End Date Emilee Cody MD [address] [place] [address] PCP - General 03/15/16 09/29/18 documented as of this encounter
--- OUTSIDE RECORDS SUMMARY | 2024-07-30 02:56 | XMS_ITS | Encounter Summary ---
Author Organization [facility] Address [address] [place] [address] Care Team Providers Care Wire Stripping Machine Operator Name Role Phone Emilee Cody MD Primary Care Provider + Reason for Visit * Reason Onset Date Comments Results 10/07/2016 done 10/04 Follow-up 10/09/2016 sodium results Encounter Details Date Type Department Care Team (Late st Contact Info) Description 10/07/2016 Telephone [facility] Endocrinology - [facility] [address] [place] [address] Wilder Zaidi, [address] [facility] [address] [place] [address] Results (done 10/04); Follow-up (sodium [...] 1335 EDT Please contact Lali at patient's custodial. His sodium on 10/04/16 was normal at 138 * Telephone Encounter - Maxine Roy - 10/09/2016 1110 EDT Lali [facility] requesting sodium results. Lali made aware this was pending Dr. Zaidi's review. * Telephone Encounter - Jennifre Au, HEATHER - 10/07/2016 1353 EDT Spoke with Lali, do not have labs - will kimble them down at [facility]./Jose * Telephone Encounter - Arlene Monroy - 10/07/2016 1319 EDT Per Lali from [facility] calling for sodium lab results done on 10/04/16. Lali is requestinga call back with results. documented in this encounter Plan of Treatment Upcoming Encounters Date Type Department Care Team (Late st Contact Info) Description 10/01/2024 13:40 EDT Office Visit [facility] Endocrinology - [facility] [address] [place] [address] Wilder Zaidi DO [address] [facility] [address] [place] [address] documented as of this encounter Visit Diagnoses Not on filedocumented in this encounter Care Teams Wire Stripping Machine Operator Relationship Specialty Start Date End Date Emilee Cody MD [facility] [place] [address] PCP - General 03/15/16 09/29/18 documented as of this encounter
--- OUTSIDE RECORDS SUMMARY | 2024-07-30 02:56 | XMS_ITS | Encounter Summary ---
Author Organization [facility] Address [address] [place] [address] Care Team Providers Care Advertising Sales Executive Name Role Phone Emilee Cody MD Primary Care Provider + Reason for Visit * Reason Onset Date Comments Follow-up 12/19/2016 Encounter Details Date Type Department Care Team (Late st Contact Info) Description 12/19/2016 Telephone [facility] Endocrinology - [facility] [address] [place] [address] Wilder Zaidi DO [address] [facility] [address] [place] [address] Follow-up Social History Tobacco Use [...] 12/19/2016 1028 EDT Please contact the patient's skilled nursing. I reviewed his most recent sodium that was drawn on 12/18/2016 at [facility] and [place], [place]. His sodium was normal at 141. He should continue his current dose of DDAVP and current fluid levels. documented in this encounter Plan of Treatment Upcoming Encounters Date Type Department Care Team (Late st Contact Info) Description 10/01/2024 13:40 EDT Office Visit [facility] Endocrinology - [facility] [address] [place] [address] Wilder Zaidi DO [address] [facility] [address] [place] [address] documented as of this encounter Visit Diagnoses Not on filedocumented in this encounter Care Teams Advertising Sales Executive Relationship Specialty Start Date End Date Emilee Cody MD [address] [place] [address] PCP - General 03/15/16 09/29/18 documented as of this encounter
--- OUTSIDE RECORDS SUMMARY | 2024-07-30 02:56 | XMS_ITS | Encounter Summary ---
Author Organization [facility] Address [address] [place] [address] Care Team Providers Care Link Knitting Machine Operator Name Role Phone Yossi Torres MD Primary Care Provider [phone]- [phone] Reason for Visit * Reason Onset Date Comments Labs Only 01/10/2015 Returning Call 01/10/2015 [place] Encounter Details Date Type Department Care Team (Late st Contact Info) Description 01/10/2015 Telephone [facility] Endocrinology - [facility] [address] [place] [address] Wilder Zaidi, [address] [facility] [address] [place] [address] Labs Only; Returning Call (Belgica) [...] 01/10/2015 1603 EDT [facility]. They did increase his fluids to 70 [...] - 01/10/2015 1313 EDT Telephone call to [facility] lab. 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
--- OUTSIDE RECORDS SUMMARY | 2024-07-30 02:56 | XMS_ITS | Encounter Summary ---
Author Organization [facility] Address [address] [place] [address] Care Team Providers Care Cna Pct Name Role Phone Emilee Cody MD Primary Care Provider + Reason for Visit * Reason Onset Date Comments Prior Auth, Medication 06/14/2016 Levothyro xine Encounter Details Date Type Department Care Team (Late st Contact Info) Description 06/14/2016 Telephone [facility] Endocrinology - [facility] [address] [place] [address] Wilder Zaidi, [address] [facility] [address] [place] [address] Prior Auth, Medication (Levothyroxine) Social [...] Endocrinology - [facility] [address] [place], [place] [phone] Wilder Zaidi, [address] [facility] [address] [place] [address] documented as of this encounter Visit Diagnoses Not on filedocumented in this encounter Discontinued Medications Medication Sig Discontinue Reason Start Date End Da te levothyroxine (SYNTHROID) 150 mcg tablet TAKE ONE TABLET BY MOUTH EVERY DAY Reorder 05/01/2016 06/14/2016 documented as of this encounter Care Teams Cna Pct Relationship Specialty Start Date End Date Emilee Cody MD [address] [place] [address] PCP - General 03/15/16 09/29/18 documented as of this encounter
--- OUTSIDE RECORDS SUMMARY | 2024-07-30 02:56 | XMS_ITS | Encounter Summary ---
Author Organization [facility] Address [address] [place] [address] Care Team Providers Care Folding Rules Printing Machine Operator Name Role Phone Emilee Cody MD Primary Care Provider + Reason for Visit * Reason Onset Date Comments Orders (Non Pre-visit) 06/21/2016 Encounter Details Date Type Department Care Team (Late st Contact Info) Description 06/21/2016 Telephone [facility] Endocrinology - [facility] [address] [place] [address] Wilder Zaidi, 62 [facility] [address] [place] [address] Orders (Non Pre-visit) Social History [...] Encounter - Jennifer Au RN - 06/21/2016 1155 EST Lab orders faxed as requested./JOSE * Telephone Encounter - Gladys Willingham - 06/21/2016 9969 EST Reason for Call: Orders (Non Pre-visit) Summary/Symptoms: Pt needs lab orders faxed to [facility] @ [phone]. Gladys Willingham 06/21/2016 9:28 documented in this encounter Plan of Treatment Upcoming Encounters Date Type Department Care Team (Late st Contact Info) Description 10/01/2024 13:40 EDT Office Visit [facility] Endocrinology - [facility] [address] [place] [address] Wilder Zaidi, 62 [facility] [address] [place] [address] documented as of this encounter Visit Diagnoses Diagnosis 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HCC-CMS)- Primary Panhypopituitarism documented in this encounter Care Teams Folding Rules Printing Machine Operator Relationship Specialty Start Date End Date Emilee Cody MD [address] [place] [address] PCP - General 03/15/16 09/29/18 documented as of this encounter
--- OUTSIDE RECORDS SUMMARY | 2024-07-30 02:56 | XMS_ITS | Encounter Summary ---
Author Organization [facility] Address [address] [place] [address] Care Team Providers Care Utility Operator Yarn Name Role Phone Yossi Torres MD Primary Care Provider +1- [phone] Reason for Visit * Reason Onset Date Comments Results 05/02/2015 Encounter Details Date Type Department Care Team (Late st Contact Info) Description 05/02/2015 Telephone [facility] Endocrinology - [facility] [address] [place] [address] Wilder Zaidi DO 62 [facility] [address] [place] [address] Results Social History Tobacco Use [...] Left detailed message for [facility]. She will call back if any questions. * Telephone Encounter - Wilder Zaidi DO - 05/02/2015 9599 EDT Please contact the facility where Miguel [...] [facility] Endocrinology - [facility] [address] [place] [address] Wilder Zaidi DO [address] [facility] [address] [place] [address] documented as of this encounter Visit Diagnoses Not on filedocumented in this encounter Care Teams Utility Operator Yarn Relationship Specialty Start Date End Date Yossi Torres MD [address] [place] [address] [address] [place] [phone] PCP - General 04/17/11 03/14/16 documented as of this encounter
--- OUTSIDE RECORDS SUMMARY | 2024-07-30 02:56 | XMS_ITS | Encounter Summary ---
Author Organization [facility] Address [address] [place] [address] Care Team Providers Care Loom Fixer Supervisor Name Role Phone Yossi Torres MD Primary Care Provider +1 [phone] Reason for Visit * Reason Comments Other Encounter Details Date Type Department Care Team (Late st Contact Info) Description 08/25/2014 Refill [facility] Endocrinology - [facility] [address] [place], [place] [phone] Day Littlejohn MD PhD [address] [facility] [address] [place] [address] Other Social History Tobacco Use [...] EDT Office Visit [facility] Endocrinology [facility] [address] [place] [address] Wilder Zaidi, [address] [facility] [address] [place] [address] documented as of this encounter Visit Diagnoses Not on filedocumented in this encounter Discontinued Medications Medication Sig Discontinue Reason Start Date End Da te levothyroxine (SYNTHROID) 150 mcg tablet Take 1 Tab by mouth daily. Reorder 09/01/2013 08/25/2014 documented as of this encounter Care Teams Loom Fixer Supervisor Relationship Specialty Start Date End Date Yossi Torres MD [address] [place] [address] [address] [place] [phone] PCP - General 04/17/11 03/14/16 documented as of this encounter
--- OUTSIDE RECORDS SUMMARY | 2024-07-30 02:56 | XMS_ITS | Encounter Summary ---
Author Organization [facility] Address [address] [place] [address] Care Team Providers Care Noise Tester Name Role Phone Yossi Torres MD Primary Care Provider +1- [phone] Reason for Visit * Reason Onset Date Comments Labs Only 01/29/2016 Results 01/31/2016 lab,7.22,[facility] Encounter Details Date Type Department Care Team (Late st Contact Info) Description 01/29/2016 Telephone [facility] Endocrinology - [address] [phone] Georgia Rice RN Labs Only; Results (lab,7.22,[facility]) Social History Tobacco Use Types Packs/Day Years [...] and repeat in 2 wks. [facility] notified. * Telephone Encounter - Day Littlejohn MD - 01/31/2016 1710 EDT Repeat the Na done in [place] and found slip in Dr. Zaidi's box. Level is 133 (o=[id number])---but last few draws 141-146. In October his [...] if lab results from 01.25 done at [facility] are available yet. Per Dr. Dejuan Ho out sick and will ask a covering. Will call back as soon as she has an answer. Alicia Chi 01/31/2016 15:49 * Telephone Encounter - Georgia Rice RN - 01/29/2016 1234 EDT Received lab results from [facility] Resulted 01/26/16 Sodium-133 L ([id number]) documented in this encounter Plan of Treatment Upcoming Encounters Date Type Department Care Team (Late st Contact Info) Description 10/01/2024 13:40 EDT Office Visit [facility] Endocrinology - [place] [address] [place] [address] Wilder Zaidi, [address] [facility] [address] [place] [address] documented as of this encounter Visit Diagnoses Not on filedocumented in this encounter Care Teams Noise Tester Relationship Specialty Start Date End Date Yossi Torres MD [address] [place] [address] [facility] 2 [place] [phone] PCP - General 04/17/11 03/14/16 documented as of this encounter
--- OUTSIDE RECORDS SUMMARY | 2024-07-30 02:56 | XMS_ITS | Encounter Summary ---
Author Organization [facility] Address [address] [place] [address] Care Team Providers Care Supervisor Industrial Garment Name Role Phone Yossi Torres MD Primary Care Provider +1- [phone] Reason for Visit * Reason Onset Date Comments Letter for School/Work 10/17/2014 Encounter Details Date Type Department Care Team (Late st Contact Info) Description 10/17/2014 Telephone [facility]ocrinology - [facility] [address] [place] [address] Belgica Chavez CDE [address] [facility] [address] [place] [address] Letter for School/Work Social History [...] - 10/19/2014 1122 EDT Faxed letter to [facility] [employer]. * Telephone Encounter - Wilder Zaidi DO - 10/17/2014 4460 EDT Please type up letter for me [...] [facility] Endocrinology - [facility] [address] [place], [place] [phone] Wilder Zaidi DO [address] [facility] [address] [place] [address] documented as of this encounter Visit Diagnoses Not on filedocumented in this encounter Care Teams Supervisor Industrial Garment Relationship Specialty Start Date End Date Yossi Torres MD [address] [place] [address] [address] [place] [phone] PCP - General 04/17/11 03/14/16 documented as of this encounter
--- OUTSIDE RECORDS SUMMARY | 2024-07-30 02:56 | XMS_ITS | Encounter Summary ---
Author Organization [facility] Address [address] [place] [address] Care Team Providers Care Health Program Analyst Name Role Phone Emilee Cody MD Primary Care Provider + Reason for Visit * Reason Onset Date Comments Prior Auth, Medication 08/05/2017 Encounter Details Date Type Department Care Team (Late st Contact Info) Description 08/05/2017 Telephone [facility] Endocrinology - [address] [phone] Emilee Cody MD [address] [place] [address] Prior Auth, Medication Social History Tobacco [...] - 08/08/2017 0831 EST Rcvd fax from [place] [employer] with APPROVAL for Levothyroxine 150 mcg tablet. PA #: [id number] Dates: 08/07/2017 - 08/07/2018 Tracking #: [id number] Qty/Days Supply Restrictions: Called pharmacy to provide approval details. * Telephone Encounter - Lucía Bundy - 08/07/2017 1608 EST Completed [place] Medicaid [place] request form for levothyroxine blister pack and e-filed using [facility] to initiate this process. Response time is 3-5 days. To f/u, call [phone] * Telephone Encounter - Kristin Osman - 08/05/2017 1904 EST Rec sherrill from [facility] [address] [place] [id number] Rx # [id number] Every Day /Blisster Pack LEVOTHYROXINE 150 MCG TAB QTY 30 PA NEEDED documented in this encounter Plan of Treatment Upcoming Encounters Date Type Department Care Team (Late st Contact Info) Description 10/01/2024 13:40 EDT Office Visit [facility] Endocrinology - [address] [phone] Wilder Zaidi, DO 62 [facility] [address] [place] [phone] documented as of this encounter Visit Diagnoses Not on filedocumented in this encounter Care Teams Health Program Analyst Relationship Specialty Start Date End Date Emilee Cody MD [address] [place] [phone] PCP - General 03/15/16 09/29/18 documented as of this encounter
--- OUTSIDE RECORDS SUMMARY | 2024-07-30 02:56 | XMS_ITS | Encounter Summary ---
Author Organization [facility] Address [address] [place] [address] Care Team Providers Care Sheet Tester Name Role Phone Yossi Torres MD Primary Care Provider Reason for Visit * Reason Onset Date Comments Labs Only 08/24/2015 Encounter Details Date Type Department Care Team (Late st Contact Info) Description 08/24/2015 Telephone [facility] Endocrinology - [facility] [address] [place] [address] Wilder Zaidi DO 62 [facility] [address] [place] [address] Labs Only Social History Tobacco [...] call to Amy. Santoyo detailed message on [employer]. Call back if any questions or problems. [...] Patient had labs drawn on 08/14/[address] [facility], called for results. Not in [facility]. Georgia Condon 08/24/2015 13:47 documented in this encounter Plan of Treatment Upcoming Encounters Date Type Department Care Team (Late st Contact Info) Description 10/01/2024 13:40 EDT Office Visit [facility] Endocrinology - [facility] [address] [place] [address] Wilder Zaidi DO 62 [facility] [address] [place] [address] documented as of this encounter Visit Diagnoses Not on filedocumented in this encounter Care Teams Sheet Tester Relationship Specialty Start Date End Date Yossi Torres MD [address] [place] [address] [address] [place] [phone] PCP - General 04/17/11 03/14/16 documented as of this encounter
--- OUTSIDE RECORDS SUMMARY | 2024-07-30 02:56 | XMS_ITS | Encounter Summary ---
Author Organization [facility] Address [address] [place] [address] Care Team Providers Care Interactive Multimedia Designer Name Role Phone Yossi Torres MD Primary Care Provider Emilee Cody MD Primary Care Provider + Reason for Visit * Reason Onset Date Comments Results 01/19/2015 Medication Management 01/19/2015 Encounter Details Date Type Department Care Team (Late st Contact Info) Description 01/19/2015 Telephone [facility] Endocrinology - [facility] [address] [place] [address] Wilder Zaidi, 62 [facility] [address] [place] [address] Results; Medication Management Social History [...] Results and Medication Management Summary/Symptoms: Please call jail and speak to Jonatan or Lali. They have questions about Fluid restriction for Miguel Angel. Requesting call back today when a moment. Alicia Chi 01/19/2015 11:52 * Telephone Encounter - Wilder Zaidi DO - 01/19/2015 1133 EDT Please contact patient via phone. [facility] Advise patient's caretakers that his sodium wasnormal at 141. Please continue current dose of DDAVP and fluid restriction. Repeat sodium and 14 days documented in this encounter Plan of Treatment Upcoming Encounters Date Type Department Care Team (Late st Contact Info) Description 10/01/2024 13:40 EDT Office Visit [facility] Endocrinology - [facility] [address] [place], [place] [phone] Wilder Zaidi DO [address] [facility] [address] [place] [address] documented as of this encounter Visit Diagnoses Not on filedocumented in this encounter Care Teams Interactive Multimedia Designer Relationship Specialty Start Date End Date Yossi Torres MD [address] [place] [address] [facility] 2 [place] [phone] PCP - General 04/17/11 03/14/16 Emilee Cody MD [address] [place] [address] PCP - General 03/15/16 09/29/18 documented as of this encounter
--- OUTSIDE RECORDS SUMMARY | 2024-07-30 02:56 | XMS_ITS | Encounter Summary ---
Author Organization [facility] Address [address] [place] [address] Care Team Providers Care Hall Coordinator Name Role Phone Emilee Cody MD Primary Care Provider + Reason for Visit * Reason Onset Date Comments Medication Questions 07/16/2016 Encounter Details Date Type Department Care Team (Late st Contact Info) Description 07/16/2016 Telephone [facility] Endocrinology - [facility] [address] [place] [address] Wilder Zaidi, 62 [facility] [address] [place] [address] Medication Questions Social History Tobacco [...] Info) Description 10/01/2024 13:40 EDT Office Visit [facility] Endocrinology - [facility] [address] [place] [address] Wilder Zaidi, 62 [facility] [address] [place] [address] documented as of this encounter Visit Diagnoses Not on filedocumented in this encounter Care Teams Hall Coordinator Relationship Specialty Start Date End Date Emilee Cody MD [address] [place] [address] PCP - General 03/15/16 09/29/18 documented as of this encounter
--- OUTSIDE RECORDS SUMMARY | 2024-07-30 02:56 | XMS_ITS | Encounter Summary ---
Author Organization [facility] Address [address] [place] [address] Care Team Providers Care Jacker Feeder Name Role Phone Yossi Torres MD Primary Care Provider +1 [phone] Reason for Visit * Reason Onset Date Comments Medications Refill 05/03/2015 Encounter Details Date Type Department Care Team (Late st Contact Info) Description 05/03/2015 Refill [facility] Endocrinology - [facility] [address] [place] [address] Wilder Zaidi, [address] [facility] [address] [place] [address] Medications Refill Social History Tobacco [...] Requested: Levothyroxine 150mcg Pharmacy: [facility] Last Refill Date: 08/25/14 Last Visit Date: 08/04/14 Next Visit Date: 10/23/2015 Is patient out of medication? Dinorah Burgess 05/03/2015 9:56 documented in this encounter Plan of Treatment Upcoming Encounters Date Type Department Care Team (Late st Contact Info) Description 10/01/2024 13:40 EDT Office Visit [facility] Endocrinology - [facility] [address] [place] [address] Wilder Zaidi, [address] [facility] [address] [place] [address] documented as of this encounter Visit Diagnoses Not on filedocumented in this encounter Discontinued Medications Medication Sig Discontinue Reason Start Date End Da te levothyroxine (SYNTHROID) 150 mcg tablet TAKE ONE TABLET BY MOUTH EVERY DAY Reorder 08/25/2014 05/03/2015 documented as of this encounter Care Teams Jacker Feeder Relationship Specialty Start Date End Date Yossi Torres MD [address] [place] [address] [address] [place] [phone] PCP - General 04/17/11 03/14/16 documented as of this encounter
--- OUTSIDE RECORDS SUMMARY | 2024-07-30 02:56 | XMS_ITS | Encounter Summary ---
Author Organization [facility] Address [address] [place] [address] Care Team Providers Care Flight Operation Coordinator Name Role Phone Yossi Torres MD Primary Care Provider +1- [phone] Reason for Visit * Reason Onset Date Comments Labs Only 01/18/2015 Sodium results Encounter Details Date Type Department Care Team (Late st Contact Info) Description 01/18/2015 Telephone [facility] Endocrinology - [facility] [address] [place] [address] Wilder Zaidi DO 62 [facility] [address] [place] [address] Labs Only (Sodium results ) [...] Results and plan reviewed with staff at [facility]. * Telephone Encounter - Hayley Odonnell - 01/18/2015 1210 EDT Reason for Call: Labs Only Summary/Symptoms: [facility] called to verify sodium labs had been received. Requested call back. Hayley Odonnell 01/18/2015 12:10 documented in this encounter Plan of Treatment Upcoming Encounters Date Type Department Care Team (Late st Contact Info) Description 10/01/2024 13:40 EDT Office Visit [facility] Endocrinology - [facility] [address] [place] [address] Wilder Zaidi, 62 [facility] [address] [place] [address] documented as of this encounter Visit Diagnoses Not on filedocumented in this encounter Care Teams Flight Operation Coordinator Relationship Specialty Start Date End Date Yossi Torres MD [address] [place] [address] [address] [place] [phone] PCP - General 04/17/11 03/14/16 documented as of this encounter
--- OUTSIDE RECORDS SUMMARY | 2024-07-30 02:56 | XMS_ITS | Encounter Summary ---
Author Organization [facility] Address [address] [place] [address] Care Team Providers Care Commutator Tester Name Role Phone Ren Vaz MD Primary Care Provider Reason for Visit * Reason Onset Date Comments Results 03/10/2019 Encounter Details Date Type Department Care Team (Late st Contact Info) Description 03/10/2019 Telephone [facility] Endocrinology - [facility] [address] [place] [address] Wilder Zaidi, DO 62 [facility] [address] [place] [address] Results Social History Tobacco Use [...] 1237 EDT Called and spoke with pt rn case manager hospice and relayed Dr. Zaidi's message below: Please contact patient's caregivers. The patient Miguel Angel is nonverbal. Please advise him that I have reviewed his blood work obtained at [facility] drawn on 03/04/2019. His sodium was stable at 144. They should continue his current dose of DDAVP and fluid restriction. Repeat sodium in 3 months unless there is any significant changes in his behavior or urine output etc. Please advise his caretakers to contact me with any questions or concerns Patient rn case manager hospice verbalized understanding. No barriers to learning noted. * Telephone Encounter - Wilder Zaidi Do - 03/10/2019 0933 EDT Please contact patient's caregivers. The patient Miguel Angel is nonverbal. Please advise him that I have reviewed his blood work obtained at [facility] drawn on 03/04/2019. His sodium was [...] Description 10/01/2024 13:40 EDT Office Visit [facility] Endocrinology - [facility] [address] [place] [address] Wilder Zaidi DO 62 [facility] [address] [place] [address] documented as of this encounter Visit Diagnoses Not on filedocumented in this encounter Care Teams Commutator Tester Relationship Specialty Start Date End [place] [address] PCP - General 09/30/18 documented as of this encounter
--- OUTSIDE RECORDS SUMMARY | 2024-07-30 02:56 | XMS_ITS | Encounter Summary ---
Author Organization [facility] Address [address] [place] [address] Care Team Providers Care Sequins Stringer Name Role Phone Emilee Cody MD Primary Care Provider + Reason for Visit * Reason Onset Date Comments Appointment Related 07/14/2018 cancelled 07/15 appt Encounter Details Date Type Department Care Team (Late st Contact Info) Description 07/14/2018 Telephone [facility] Endocrinology - [facility] [address] [place] [address] Wilder Zaidi DO [address] [facility] [address] [place] [address] Appointment Related (cancelled 07/15 appt) [...] Violet Artis - 07/14/2018 1703 EST Patients caseworker protective services called to cancel an appt for 07/[address] Zaidi as the patient also had an appt at [facility] Endocrinology for the same time documented in this encounter Plan of Treatment Upcoming Encounters Date Type Department Care Team (Late st Contact Info) Description 10/01/2024 13:40 EDT Office Visit [facility] Endocrinology - [facility] [address] [place] [address] Wilder Zaidi, [address] [facility] [address] [place] [address] documented as of this encounter Visit Diagnoses Not on filedocumented in this encounter Care Teams Sequins Stringer Relationship Specialty Start Date End Date Emilee Cody MD [address] [place] [id number] PCP - General 03/15/16 09/29/18 documented as of this encounter
--- OUTSIDE RECORDS SUMMARY | 2024-07-30 02:56 | XMS_ITS | Encounter Summary ---
Author Organization [facility] Address [address] [place] [address] Care Team Providers Care Home Health Rn Name Role Phone Emilee Cody MD Primary Care Provider + Reason for Visit * Reason Onset Date Comments Update 04/09/2016 standing medicat ion form Encounter Details Date Type Department Care Team (Late st Contact Info) Description 04/09/[address] [facility] Endocrinology - [facility] [address] [place] [address] Wilder Zaidi, 62 [facility] [address] [place] [address] Update (standing medication form) Social [...] Update (standing medication form) Summary/Symptoms: Lali from [facility] is calling to discuss a prescription that [...] Description 10/01/2024 13:[address] [facility] Endocrinology - [facility] [address] [place] [address] Wilder Zaidi, 62 [facility] [address] [place] [phone] documented as of this encounter Visit Diagnoses Not on filedocumented in this encounter Care Teams Home Health Rn Relationship Specialty Start Date End Date Emilee Cody MD [address] [place] [address] PCP - General 03/15/16 09/29/18 documented as of this encounter
--- OUTSIDE RECORDS SUMMARY | 2024-07-30 02:56 | XMS_ITS | Encounter Summary ---
Author Organization [facility] Address [address] [place] [address] Care Team Providers Care Assistant Farm Operations Manager Name Role Phone Ren Vaz MD Primary Care Provider [phone] Reason for Visit * Reason Onset Date Comments Labs Only 03/03/2019 Encounter Details Date Type Department Care Team (Late st Contact Info) Description 03/03/2019 Telephone [facility] Endocrinology - [facility] [address] [place] [address] Wilder Zaidi, DO 62 [facility] [address] [place] [address] Labs Only Social History Tobacco [...] - Carlos Alberto Benitez RN - 03/03/2019 0531 EDT Called and left message for Evelyn relaying Dr. Zaidi's message below: Would have electrolytes drawn every 3 months with a as needed order if there is any significant change in behavior Standing lab orders for electrolytes faxed to [facility] as requested for Electrolytes as requested. Labs printed and faxed to [facility] * Telephone Encounter - Wilder Zaidi Do - 03/03/2019 3167 EDT Would have electrolytes drawn every 3 months with a as needed order if there is any significant change in behavior * Telephone Encounter - Alicia Chi - 03/03/2019 1428 EDT Per Evelyn, please fax lab orders to [facility] [phone]. Per Evelyn, needs toknow when his last lab was done and if received as well as how often he should be having the labs done. Evelyn is requesting a call back today when a moment. 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
--- OUTSIDE RECORDS SUMMARY | 2024-07-30 02:56 | XMS_ITS | Encounter Summary ---
Author Organization [facility] Address [address] [place] [address] Care Team Providers Care Paper Inserter Name Role Phone Yossi Torres MD Primary Care Provider [phone] Reason for Visit * Reason Onset Date Comments Prior Auth, Medication 03/15/2015 Androgel Encounter Details Date Type Department Care Team (Late st Contact Info) Description 03/15/2015 Telephone [facility] Endocrinology - [facility] [address] [place] [address] Wilder Zaidi, 62 [facility] [address] [place] [address] Prior Auth, Medication (Androgel) Social [...] for: Androgel Gel 1.62%, 150/30 days Drug [facility]#: [id number] Tracking Number: [id number] Dates: 03/15/2015 to 03/15/2016 PA #: [id number] Called pharmacy & left message with patients sister that androgel has been approved. * Telephone Encounter - LatahLucía - 03/15/2015 1452 EDT Rcvd fax from pharmacy requesting PA for Androgel - completed [place] Medicaid PA Form using [employer] and e-filed to initiate process. documented in this encounter Plan of Treatment Upcoming Encounters Date Type Department Care Team (Late st Contact Info) Description 10/01/2024 13:40 EDT Office Visit [facility] Endocrinology - [address] [address] Wilder Zaidi, 62 [facility] [address] [place] [address] documented as of this encounter Visit Diagnoses Not on filedocumented in this encounter Care Teams Paper Inserter Relationship Specialty Start Date End Date Yossi Torres MD [address] [place] [address] [address] [place] [phone] PCP - General 04/17/11 03/14/16 documented as of this encounter
--- OUTSIDE RECORDS SUMMARY | 2024-07-30 02:56 | XMS_ITS | Encounter Summary ---
Author Organization [facility] Address [address] [place] [address] Care Team Providers Care Obstetrician/Gynecologist Name Role Phone Yossi Torres MD Primary Care Provider [phone] Emilee Cody MD Primary Care Provider + Reason for Visit * Reason Onset Date Comments Discuss Test Results 02/20/2015 Sodium Chec k last week Encounter Details Date Type Department Care Team (Late st Contact Info) Description 02/20/[address] [facility] Endocrinology - [facility] [address] [place] [address] Wilder Zaidi DO 62 [facility] [address] [place] [address] Discuss Test Results (Sodium Check [...] Encounter - Georgia Rice RN - 02/21/2015 9504 EDT Phone call to Lali Informed her [...] - 02/21/2015 1117 EDT Phone call to [facility] Lab Resulted on 02/15/15 Sodium-141 * Telephone Encounter - Addie Burgess - 02/20/2015 1512 EDT Reason for Call: Discuss Test Results Summary/Symptoms: Please call Lali's mobile with Sodium check results. Addie Burgess 02/20/2015 15:12 * Telephone Encounter - [place] Camara V. - 02/20/2015 1248 EDT Please [facility] Jonatan [facility] Check results done at [place] last week. documented in this encounter Plan of Treatment Upcoming Encounters Date Type Department Care Team (Late st Contact Info) Description 10/01/2024 13:40 EDT Office Visit [facility] Endocrinology - [facility] [address] [place] [address] Wilder Zaidi DO 62 [facility] [address] [place] [address] documented as of this encounter Visit Diagnoses Not on filedocumented in this encounter Care Teams Obstetrician/Gynecologist Relationship Specialty Start Date End Date Yossi Torres MD [address] [place] [address] [address] [place] [address] PCP - General 04/17/11 03/14/16 Emilee Cody MD [address] [place] [address] PCP - General 03/15/16 09/29/18 documented as of this encounter
--- OUTSIDE RECORDS SUMMARY | 2024-07-30 02:56 | XMS_ITS | Encounter Summary ---
Author Organization [facility] Address [address] [place] [address] Care Team Providers Care Quenching Machine Operator Name Role Phone Yossi Torres MD Primary Care Provider [phone] Emilee Cody MD Primary Care Provider + Reason for Visit * Reason Onset Date Comments Prior Auth, Medication 03/13/2016 levothyro xine Encounter Details Date Type Department Care Team (Late st Contact Info) Description 03/13/2016 Telephone [facility] Endocrinology - [facility] [address] [place] [address] Wilder Zaidi, 62 [facility] [address] [place] [address] Prior Auth, Medication (levothyroxine) Social [...] Durant - 03/13/2016 1311 EDT Miguel Angel's patient case manager called to advise that the [...] Info) Description 10/01/2024 13:40 EDT Office Visit [facility] Endocrinology - [address] [address] Wilder Zaidi, 62 [facility] [address] [place] [address] documented as of this encounter Visit Diagnoses Not on filedocumented in this encounter Discontinued Medications Medication Sig Discontinue Reason Start Date End Da te levothyroxine (SYNTHROID) 150 mcg tablet TAKE ONE TABLET BY MOUTH EVERY DAY Reorder 05/04/2015 03/18/2016 documented as of this encounter Care Teams Quenching Machine Operator Relationship Specialty Start Date End Date Yossi Torres MD [address] [place] [address] [address] [place] [phone] PCP - General 04/17/11 03/14/16 Emilee Cody MD [facility] [address] [place], [place] [phone] PCP - General 03/15/16 09/29/18 documented as of this encounter
--- OUTSIDE RECORDS SUMMARY | 2024-07-30 02:56 | XMS_ITS | Encounter Summary ---
Author Organization [facility] Address [address] [place] [address] Care Team Providers Care Document Control Associate Name Role Phone Yossi Torres MD Primary Care Provider [phone] Reason for Visit * Reason Onset Date Comments Orders (Non Pre-visit) 11/08/2014 MEDICATIO NS Encounter Details Date Type Department Care Team (Late st Contact Info) Description 11/08/2014 Telephone [facility] Endocrinology - [facility] [address] [place] [address] Wilder Zaidi, 62 [facility] [address] [place] [address] Orders (Non Pre-visit) (MEDICATIONS) Social [...] gram (1.62 %) transdermal gel pumpIndications:Jose nhypopituitarism ([facility]-CMS) Apply 3 pump actuations topically daily for 90 days Daily Max: 60.75 mg 75 g 1 11/08/2014 5 documented in this encounter Miscellaneous Notes * Telephone Encounter - Chavez, Belg[place] - 11/08/2014 1556 EDT Phoned in androgel to [facility] in [facility]. Spoke to pharmacist. * Telephone Encounter - Tracy Nunez - 11/08/2014 1037 EDT Reason for Call: Orders (Non Pre-visit) Summary/Symptoms - Pt is new to his custodial, needing new orders of hydrocortisone and androgel [...] Description 10/01/2024 13:40 EDT Office Visit [facility] Endocrinology - [address] [address] Wilder Zaidi, 62 [facility] [address] [place] [address] documented as of this encounter [...] documented as of this encounter Care Teams Document Control Associate Relationship Specialty Start Date End Date Yossi Torres MD [address] [place] [address] [address] [place] [phone] PCP - General 04/17/11 03/14/16 documented as of this encounter
--- OUTSIDE RECORDS SUMMARY | 2024-07-30 02:56 | XMS_ITS | Encounter Summary ---
Author Organization [facility] Address [address] [place] [address] Care Team Providers Care Metrologist Name Role Phone Emilee Cody MD Primary Care Provider + Reason for Visit * Reason Onset Date Comments Medications Refill 05/01/2016 Encounter Details Date Type Department Care Team (Late st Contact Info) Description 05/01/2016 Refill [facility] Endocrinology - [facility] [address] [place] [address] Wilder Zaidi, 62 [facility] [address] [place] [address] Medications Refill Social History Tobacco [...] Office Visit [facility] End[facility] - [facility] [address] [place] [address] Wilder Zaidi, 62 [facility] [address] [place] [address] documented as of this encounter Visit Diagnoses Not on filedocumented in this encounter Discontinued Medications Medication Sig Discontinue Reason Start Date End Da te levothyroxine (SYNTHROID) 150 mcg tablet TAKE ONE TABLET BY MOUTH EVERY DAY Reorder 03/18/2016 05/01/2016 documented as of this encounter Care Teams Metrologist Relationship Specialty Start Date End Date Emilee Cody MD [address] [place] [address] PCP - General 03/15/16 09/29/18 documented as of this encounter
--- OUTSIDE RECORDS SUMMARY | 2024-07-30 02:57 | XMS_ITS | Encounter Summary ---
Author Organization [facility] Address [address] [place] [address] Care Team Providers Care Charter Driver Name Role Phone Yossi Torres MD Primary Care Provider [phone] Reason for Visit * Reason Comments Hypothyroidism Pituitary Abnormality Encounter Details Date Type Department Care Team (Latest Contact Info) Description 02/01/2014 10:40 EDT Office Visit [facility] Endocrinology - [facility] [address] [place] [phone] Wilder Zaidi, 62 [facility] [address] [place] [address] Central hypothyroidism (Primary Dx) Social [...] Mood has been stable, according to the media director. LABORATORY DATA: Obtained on at [facility] on 01/21/2014 showed a sodium normal [...] 10/01/2024 13:40 EDT Office Visit [facility] Endocrinology - [place] [address] [place] [address] Wilder Zaidi DO 62 [facility] [address] [place] [address] documented as of this encounter Results * T4 FREE (02/01/2014 10:50 EDT) Free T4 1.4 0.8 - 1.8 ng/dl [facility] Blood specimen (specimen) 02/01/2014 10:50 EDT 02/01/2014 15:54 EDT us Wilder Zaidi DO CHEMISTRY & BLOOD GAS ORDERABLES Final Result [facility] [address] [place] [address] documented in this encounter Visit Diagnoses Diagnosis Central hypothyroidism- Primary Unspecified hypothyroidism documented in this encounter Discontinued Medications Medication Sig Discontinue Reason Start Date End Da te testosterone (ANDROGEL) 1 %(50 mg/5 gram) gel Place 5 g onto the skin daily. Pt needs appt for further refills. 02/01/2013 02/03/2014 documented as of this encounter Care Teams Charter Driver Relationship Specialty Start Date End Date Yossi Torres MD [address] [place] [address] [address] [place] [phone] PCP - General 04/17/11 03/14/16 documented as of this encounter
--- OUTSIDE RECORDS SUMMARY | 2024-07-30 02:57 | XMS_ITS | Encounter Summary ---
Author Organization [facility] Address [address] [place] [address] Care Team Providers Care Cinder Block Mason Name Role Phone Yossi Torres MD Primary Care Provider [phone] Reason for Visit * Reason Comments Other Encounter Details Date Type Department Care Team (Late st Contact Info) Description 06/28/2012 Refill [facility] Endocrinology - [facility] [address] [place] [address] Wilder Zaidi, 62 [facility] [address] [place] [address] Other Social History Tobacco Use [...] Telephone Encounter - Karen Tellez - 07/09/2012 6643 EST Test[facility] documented in this encounter Plan of Treatment Upcoming Encounters Date Type Department Care Team (Late st Contact Info) Description 10/01/2024 13:40 EDT Office Visit [facility] Endocrinology - [facility] [address] [place] [address] Wilder Zaidi, DO [address] [facility] [address] [place] [address] documented as of this encounter Visit Diagnoses Not on filedocumented in this encounter Discontinued Medications Medication Sig Discontinue Reason Start Date End Da te ANDROGEL 1 %(50 mg/5 gram) gel APPLY 5GM (1 PACKET) ONCE DAILY TO SKIN Reorder 12/25/2011 06/28/2012 documented as of this encounter Care Teams Cinder Block Mason Relationship Specialty Start Date End Date Yossi Torres MD [address] [place] [address] [address] [place] [phone] PCP - General 04/17/11 03/14/16 documented as of this encounter
--- OUTSIDE RECORDS SUMMARY | 2024-07-30 02:57 | XMS_ITS | Encounter Summary ---
Author Organization [facility] Address [address] [place] [address] Care Team Providers Care Side Panel Hanger Name Role Phone Yossi Torres MD Primary Care Provider [phone] Reason for Visit * Reason Onset Date Comments Other 01/06/2012 not urinating ye sterday Encounter Details Date Type Department Care Team (Late st Contact Info) Description 01/06/2012 Telephone [facility] Endocrinology - [facility] [address] [place] [address] Wilder Zaidi DO 62 [facility] [address] [place] [address] Other (not urinating yesterday) Social [...] Visit [facility] Endocrinology - [address] [phone] Wilder Zaidi DO 62 [facility] [address] [place] [phone] documented as of this encounter Visit Diagnoses Not on filedocumented in this encounter Care Teams Side Panel Hanger Relationship Specialty Start Date End Date Yossi Torres MD [address] [place] [address] [address] [place] [phone] PCP - General 04/17/11 03/14/16 documented as of this encounter
--- OUTSIDE RECORDS SUMMARY | 2024-07-30 02:57 | XMS_ITS | Encounter Summary ---
Author Organization [facility] Address [address] [place] [address] Care Team Providers Care Bridal Stylist Sales Consultant Name Role Phone Yossi Torres MD Primary Care Provider [phone] Reason for Visit * Reason Comments Pituitary Abnormality Encounter Details Date Type Department Care Team (Latest Contact Info) Description 07/26/2013 11:00 EST Office Visit [facility] Endocrinology - [facility] [address] [place], [place] [phone] Wilder Zaidi, 62 [facility] [address] [place] [address] Gonadotropin deficiency (CMS-HCC) (HCC-CMS) (Primary [...] he said he was sad by his florist designer today. Mood has been stable according to his florist designer and sister. 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 Currently lives with his caretakers accompanied today by his florist designer and his sister, Bettina. Central diabetes insipidus [...] [facility] - [address] [address] Wilder Zaidi DO 62 [facility] [address] [place] [address] documented as of this encounter Results [...] LYNDSEY Final Result Performing Organization Address [facility] [[email or web address]] Co de Phone Number [facility] [address] [place] [address] * (ABNORMAL) T4 FREE (07/26/2013 12:17 EST) Free T4 2.3(H) 0.8 - 1.8 ng/dL [facility] Blood specimen (specimen) 07/26/2013 12:17 EST 07/26/2013 15:09 EST Wilder Zaidi DO CHEMISTRY & BLOOD GAS ORDERABLES Final Result Performing Organization Address [facility] [[email or web address]] Co de Phone Number [facility] [address] [place] [address] * (ABNORMAL) ELECTROLYTES (07/26/2013 12:17 EST) Sodium [...] ORDERABLES Final Result [facility] [address] [place] [address] documented in this encounter Visit Diagnoses Diagnosis [...] 4 added in this encounter Care Teams Bridal Stylist Sales Consultant Relationship Specialty Start Date End Date Yossi Torres MD [address] [place] [address] [address] [place] [address] PCP - General 04/17/11 03/14/16 documented as of this encounter
--- OUTSIDE RECORDS SUMMARY | 2024-07-30 02:57 | XMS_ITS | Encounter Summary ---
Author Organization [facility] Address [address] [place] [address] Care Team Providers Care Health Researcher Name Role Phone Yossi Torres MD Primary Care Provider [phone] Reason for Visit * Reason Comments Pituitary Abnormality f/u Encounter Details Date Type Department Care Team (Latest Contact Info) Description 05/03/2011 11:20 EDT Office Visit [facility] Endocrinology - [facility] [address] [place] [address] Wilder Zaidi, 62 [facility] [address] [place] [address] 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CMS-HCC) ([facility]); 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 Radha Conteh is here from [facility] as well as both his caretakers. I received a letter from Dr Rondon on 03/26/2011 where he expressed concern that the caregivers had told him that there was some increase in urine volume and behavioral issues, that Miguel Angel's flight test supervisor did not contact my office with these [...] and symptoms of hyponatremia today with the flight test supervisor, nurse and patient's sister, although the subtle [...] DO - Job ID: SM Doc ID: [id number] Ext Doc ID: [id number] cc: Yossi Torres MD * Wilder Zaidi DO - 05/09/2011 0941 EDT This office note has been dictated. 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
--- OUTSIDE RECORDS SUMMARY | 2024-07-30 02:57 | XMS_ITS | Encounter Summary ---
Author Organization [facility] Address [address] [place] [address] Care Team Providers Care Special Procedures Nurse Name Role Phone Yossi Torres MD Primary Care Provider +[phone] Reason for Visit * Reason Comments Other Encounter Details Date Type Department Care Team (Late st Contact Info) Description 04/19/[address] [facility] Endocrinology - [facility] [address] [place] [address] Wilder Zaidi, 62 [facility] [address] [place] [address] Other Social History Tobacco Use [...] Encounter - Karen Tellez L - 04/19/2013 5983 EDT Miguel Angel has not been seen [...] [facility] - [facility] [address] [place] [address] Wilder Zaidi, 62 [facility] [address] [place] [address] documented as of this encounter Visit Diagnoses Not on filedocumented in this encounter Discontinued Medications Medication Sig Discontinue Reason Start Date End Da te desmopressin (DDAVP) 0.1 mg tablet TAKE ONE TABLET BY MOUTH EVERY MORNING AND 1/2 TABLET EVERY EVENING Reorder 03/03/2013 04/19/2013 documented as of this encounter Care Teams Special Procedures Nurse Relationship Specialty Start Date End Date Yossi Torres MD [address] [place] [address] [address] [place] [phone] PCP - General 04/17/11 03/14/16 documented as of this encounter
--- OUTSIDE RECORDS SUMMARY | 2024-07-30 02:57 | XMS_ITS | Encounter Summary ---
Author Organization [facility] Address [address] [place] [address] Care Team Providers Care Supervisor Shipping Room Name Role Phone Yossi Torres MD Primary Care Provider +1 [phone] Reason for Visit * Reason Comments Follow-up Panhypopituitarism,d iabetes insipidus,hypogonadism Encounter Details Date Type Department Care Team (Latest Contact Info) Description 11/04/2011 13:40 EDT Office Visit [facility] Endocrinology - [facility] [address] [place] [address] Wilder Zaidi, 62 [facility] [address] [place] [address] 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HCC-CMS) (Primary Dx) Social [...] today by his sister Bettina and his streetcar repairer from [facility] as well as both of his caretakers. [...] nonverbal but seems appropriate, according to his nightman and sister. He was able to sit [...] caretakers. He is accompanied today by his nightman from [facility] as well as his sister Bettina. A. [...] and symptoms of hyponatremia today with the nightman and patient's sister, although the subtle signs [...] Visit [facility] Endocrinology - [facility] [address] [place], [place] [phone] Wilder Zaidi DO 62 [facility] [address] [place] [address] documented as of this encounter Visit Diagnoses Diagnosis 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[facility]-CMS)- Primary Panhypopituitarism documented in this encounter Care Teams Supervisor Shipping Room Relationship Specialty Start Date End Date Yossi Torres MD [address] [place] [address] [address] [place] [phone] PCP - General 04/17/11 03/14/16 documented as of this encounter
--- OUTSIDE RECORDS SUMMARY | 2024-07-30 02:57 | XMS_ITS | Encounter Summary ---
Author Organization [facility] Address [address] [place] [address] Care Team Providers Care Publication Distributor Name Role Phone Yossi Torres MD Primary Care Provider +1- [phone] Reason for Visit * Reason Comments Labs Only Encounter Details Date Type Department Care Team (Latest Contact Info) Description 02/01/2014 10:[address] [facility] Endocrinology - [facility] [address] [place], [place] [phone] Wilder Zaidi, 62 [facility] [address] [place] [address] Phlebotomy, [facility] Central hypothyroidism Social History Tobacco Use [...] 13:[address] [facility] Endocrinology - [facility] [address] [place] [address] Wilder Zaidi, DO [address] [facility] [address] [place] [address] documented as of this encounter [...] ORDERABLES Final Result [facility] [address] [place] [address] documented in this encounter Visit Diagnoses Diagnosis Central hypothyroidism Unspecified hypothyroidism documented in this encounter Care Teams Publication Distributor Relationship Specialty Start Date End Date Yossi Torres MD [address] [place] [address] [address] [place] [phone] PCP - General 04/17/11 03/14/16 documented as of this encounter
--- OUTSIDE RECORDS SUMMARY | 2024-07-30 02:57 | XMS_ITS | Encounter Summary ---
Author Organization [facility] Address [address] [place] [address] Care Team Providers Care [employer] Teacher Name Role Phone Yossi Torres MD Primary Care Provider +1- [phone] Encounter Details Date Type Department Care Team (Latest Contact Info) Description 07/29/2013 Orders Only [facility] Endocrinology - [address] [address] Tejal Carreno, RN CDE Panhypopituitarism [...] Description 10/01/2024 13:40 EDT Office Visit [facility] Endocrinology [facility] [address] [place] [address] Wilder Zaidi, 62 [facility] [address] [place] [address] documented as of this encounter Visit Diagnoses Diagnosis 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HCC-CMS)- Primary Panhypopituitarism documented in this encounter Care Teams [employer] Teacher Relationship Specialty Start Date End Date Yossi Torres MD [address] [place] [address] [address] [place] [phone] PCP - General 04/17/11 03/14/16 documented as of this encounter
--- OUTSIDE RECORDS SUMMARY | 2024-07-30 02:57 | XMS_ITS | Encounter Summary ---
Author Organization [facility] Address [address] [place] [address] Care Team Providers Care Metal Buildings Assembler Name Role Phone Yossi Torres MD Primary Care Provider +1 [phone] Reason for Visit * Reason Comments Labs Only Encounter Details Date Type Department Care Team (Latest Contact Info) Description 08/04/2014 15:15 EST Procedure visit [facility] Endocrinology - [address] [address] Unknown, Provider, Phlebotomy, [facility] 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CMS-HCC) (HCC-CMS); Secondary [...] Visit [facility] Endocrinology - [facility] [address] [place] [address] Wilder Zaidi, DO 62 [facility] [address] [place] [address] documented as of this encounter Procedures Procedure Name Priority Date/Time Associated Diagnosis Comments T3 FREE Routine 08/04/2014 15:24 EST Secondary hypothyroidism T4 FREE Routine 08/04/2014 15:24 EST Secondary hypothyroidism ELECTROLYTES Routine 08/04/2014 15:24 EST 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CMS-HCC) (HCC-CMS) documented in this encounter Results * T3 FREE (08/04/2014 15:24 EST) T3, Free 2.5 2.3 - 4.2 pg/mL 08/04/2014 21:27 EST [facility] Blood specimen (specimen) BLOOD SPECIMEN / Unknown 08/04/2014 15:24 EST 08/04/2014 19:15 EST Wilder Zaidi DO CHEMISTRY & BLOOD GAS ORDERABLES Final Result Performing Organization Address City/State/[facility] Co de Phone Number [facility] [address] [place] [address] * T4 FREE (08/04/2014 15:24 EST) Free T4 1.4 0.8 - 1.8 ng/dl 08/04/2014 21:27 EST [facility] Blood specimen (specimen) BLOOD SPECIMEN / Unknown 08/04/2014 15:24 EST 08/04/2014 19:15 EST Wilder Zaidi DO CHEMISTRY & BLOOD GAS ORDERABLES Final Result Performing Organization Address City/State/[facility] Co de Phone Number [facility] [address] [place] [address] * (ABNORMAL) ELECTROLYTES (08/04/2014 15:24 EST) Sodium 125(L) 136 - 145 mEq/L 08/04/2014 20:16 EST [facility] Potassium 4.0 3.5 - 5.0 mEq/L 08/04/2014 20:16 EST [facility] Chloride 89(L) 96 - 110 mEq/L 08/04/2014 20:16 EST [facility] CO2 28 24 - 32 mEq/L 08/04/2014 20:16 EST [facility] Blood specimen (specimen) BLOOD SPECIMEN / Unknown 08/04/2014 15:24 EST 08/04/2014 19:15 EST Wilder Zaidi DO CHEMISTRY & BLOOD GAS ORDERABLES Final Result Performing Organization Address [facility] Co de Phone Number [facility] [address] [place] [address] documented in this encounter Visit Diagnoses Diagnosis 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HCC-CMS) Diabetes insipidus Secondary hypothyroidism Other specified acquired hypothyroidism documented in this encounter Care Teams Metal Buildings Assembler Relationship Specialty Start Date End Date Yossi Torres MD [address] [place] [address] DR BU[address]O [address] [place] [phone] PCP - General 04/17/11 03/14/16 documented as of this encounter
--- OUTSIDE RECORDS SUMMARY | 2024-07-30 02:57 | XMS_ITS | Encounter Summary ---
Author Organization [facility] Address [address] [place] [address] Care Team Providers Care Coagulating Bath Operator Name Role Phone Yossi Torres MD Primary Care Provider +1 [phone] Reason for Visit * Reason Onset Date Comments Labs Only 09/13/2012 Encounter Details Date Type Department Care Team (Late st Contact Info) Description 09/13/2012 Telephone [facility] Endocrinology - [address] [address] Ramon Lucero MD [address] [place] [address], [address] [phone] Labs Only Social History Tobacco [...] 60 oz fluid restriction. Investigate with new case work aide regarding inadvertent free water intake. Call lateafternoon [...] Visit [facility] Endocrinology - [facility] [address] [place] [address] Wilder Zaidi, 62 [facility] [address] [place] [phone] documented as of this encounter Visit Diagnoses Not on filedocumented in this encounter Care Teams Coagulating Bath Operator Relationship Specialty Start Date End Date Yossi Torres MD [address] [place] [address] [address] [place] [phone] PCP - General 04/17/11 03/14/16 documented as of this encounter
--- OUTSIDE RECORDS SUMMARY | 2024-07-30 02:57 | XMS_ITS | Encounter Summary ---
Author Organization [facility] Address [address] [place] [address] Care Team Providers Care Saw Boss Name Role Phone Yossi Torres MD Primary Care Provider +[phone]- [phone] Reason for Visit * Reason Onset Date Comments Follow-up 09/01/2013 Encounter Details Date Type Department Care Team (Late st Contact Info) Description 09/01/2013 Telephone [facility] Endocrinology - [facility] [address] [place] [address] Wilder Zaidi, 62 [facility] [address] [place] [address] Follow-up Social History Tobacco Use [...] since he is onvacation asking for the suction roller provider, I relayed to Bettina that the nurse will give this messageto the covering MDBettina states concerns are w/ his high sodium of 150 and sees yuly for Primary central diabetes insipidus, Bettina disconnected call abruptly documented in this encounter Plan of Treatment Upcoming Encounters Date Type Department Care Team (Late st Contact Info) Description 10/01/2024 13:40 EDT Office Visit [facility] Endocrinology - [facility] [address] [place] [address] Wilder Zaidi, DO 62 [facility] [address] [place] [address] documented as of this encounter Visit Diagnoses Not on filedocumented in this encounter Discontinued Medications Medication Sig Discontinue Reason Start Date End Da te levothyroxine (SYNTHROID) 175 mcg tablet Take 1 Tab by mouth daily. Reorder 07/29/2013 09/01/2013 documented as of this encounter Care Teams Saw Boss Relationship Specialty Start Date End Date Yossi Torres MD [address] [place] [address] DR BU[address]RAGO [address] [place] [phone] PCP - General 04/17/11 03/14/16 documented as of this encounter
--- OUTSIDE RECORDS SUMMARY | 2024-07-30 02:57 | XMS_ITS | Encounter Summary ---
Author Organization [facility] Address [address] [place] [address] Care Team Providers Care Glycerin Supervisor Name Role Phone Yossi Torres MD Primary Care Provider +1- [phone] Encounter Details Date Type Department Care Team (Late st Contact Info) Description 02/01/2013 Orders Only [facility] Endocrinology - [address] [address] Karen Tellez RN Social History Tobacco Use [...] Notes * Georgia Rice RN - 02/04/2013 5060 EDT Called Androgel into his pharmacy. He needs an appointment before further refills per Dr. Zaidi. documented in this encounter Plan of Treatment Upcoming Encounters Date Type Department Care Team (Late st Contact Info) Description 10/01/2024 13:40 EDT Office Visit [facility] Endocrinology - [place] [address] [place] [address] Wilder Zaidi, 62 [facility] [address] [place] [address] documented as of this encounter Visit Diagnoses Not on filedocumented in this encounter Discontinued Medications Medication Sig Discontinue Reason Start Date End Da te ANDROGEL 1 %(50 mg/5 gram) gel ONE PACKET ONCE DAILY TOPICALLY Reorder 06/28/2012 02/01/2013 documented as of this encounter Care Teams Glycerin Supervisor Relationship Specialty Start Date End Date Yossi Torres MD [address] [place] [address] [facility] [address] [place] [phone] PCP - General 04/17/11 03/14/16 documented as of this encounter
--- OUTSIDE RECORDS SUMMARY | 2024-07-30 02:57 | XMS_ITS | Encounter Summary ---
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[facility]) ([facility]); 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[facility]) ([facility]); 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[facility]); 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[facility]) ([facility]); Secondary hypothyroidism Discharge Disposition: Auto Discharge Social [...] 10/01/2024 13:40 EDT Office Visit [facility] Endocrinology - [facility] [address] [place] [address] Wilder Zaidi, 62 [facility] [address] [place] [address] documented as of this encounter [...] WBC 4.58 4.0 - 10.4 K/cmm [facility] RBC 5.66 4.36 - 5.78 M/cmm [facility] Hemoglobin 15.4 13.8 - 17.3 gm/dl [facility] HCT 45.4 39.5 - 50.2 % [facility] MCV 80(L) 81 - 95 fl [facility] MCH 27.2(L) 27.6 - 33.0 pg [facility] MCHC 33.9 32.8 - 36.4 gm/dl [facility] PLT 148 141 - 320 K/cmm [facility] RDW-CV 14.5(H) 11.8 - 14.1 % [facility] Blood specimen (specimen) 07/26/2013 12:17 EST 07/26/2013 15:09 EST Wilder Zaidi DO HEMATOLOGY & PF4 ORDER LYNDSEY Final Result Performing Organization Address [facility]/ZIP Co de Phone Number [facility] [address] [place] [address] * (ABNORMAL) T4 FREE (07/26/2013 12:17 EST) Free T4 2.3(H) 0.8 - 1.8 ng/dL [facility] Blood specimen (specimen) 07/26/2013 12:17 EST 07/26/2013 15:09 EST Wilder Zaidi DO CHEMISTRY & BLOOD GAS ORDERABLES Final Result Performing Organization Address [facility] de Phone Number [facility] [address] [place] [address] * (ABNORMAL) ELECTROLYTES (07/26/2013 12:17 EST) Sodium 137 136 - 145 mEq/L [facility] Potassium 4.3 3.5 - 5.0 mEq/L [facility] Chloride 94(L) 96 - 110 mEq/L [facility] CO2 32 24 - 32 mEq/L [facility] Blood specimen (specimen) 07/26/2013 12:17 EST 07/26/2013 15:09 EST us Wilder Zaidi DO CHEMISTRY & BLOOD GAS ORDERABLES Final Result [facility] [address] [place] [address] documented in this encounter Visit Diagnoses Diagnosis Gonadotropin deficiency (HCC-CMS) 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
--- OUTSIDE RECORDS SUMMARY | 2024-07-30 02:57 | XMS_ITS | Encounter Summary ---
Author Organization [facility] Address [address] [place] [address] Care Team Providers Care Block Operator Name Role Phone Yossi Torres MD Primary Care Provider +[phone] Reason for Visit * Reason Onset Date Comments Abnormal Lab 01/22/2012 Encounter Details Date Type Department Care Team (Late st Contact Info) Description 01/22/2012 Telephone [facility] Endocrinology - [facility] [address] [place] [address] Wilder Zaidi DO 62 [facility] [address] [place] [address] Abnormal Lab Social History Tobacco [...] Info) Description 10/01/2024 13:40 EDT Office Visit [facility] Endocrinology - [facility] [address] [place], [place] [phone] Wilder Zaidi DO 62 [facility] [address] [place] [address] documented as of this encounter Visit Diagnoses Not on filedocumented in this encounter Care Teams Block Operator Relationship Specialty Start Date End Date Yossi Torres MD [address] [place] [address] [address] BU[address]O [address] [place] [phone] PCP - General 04/17/11 03/14/16 documented as of this encounter
--- OUTSIDE RECORDS SUMMARY | 2024-07-30 02:57 | XMS_ITS | Encounter Summary ---
Author Organization [facility] Address [address] [place] [address] Care Team Providers Care Taximeter Repairer Name Role Phone Yossi Torres MD Primary Care Provider +1 [phone] Reason for Visit * Reason Onset Date Comments Abnormal Lab 09/12/2013 Encounter Details Date Type Department Care Team (Late st Contact Info) Description 09/12/2013 Telephone [facility] Endocrinology - [facility] [address] [place] [address] Day Littlejohn MD PhD [address] [facility] [address] [place] [address] Abnormal Lab Social History Tobacco [...] Encounter - Day Littlejohn MD - 09/12/2013 6102 EDT Called from [facility] that [...] Office Visit [facility] Endocrinology - [facility] [address] [place] [address] Wilder Zaidi, 62 [facility] [address] [place] [address] documented as of this encounter Visit Diagnoses Not on filedocumented in this encounter Care Teams Taximeter Repairer Relationship Specialty Start Date End Date Yossi Torres MD [address] [place] [address] 2 [place] [phone] PCP - General 04/17/11 03/14/16 documented as of this encounter
--- OUTSIDE RECORDS SUMMARY | 2024-07-30 02:57 | XMS_ITS | Encounter Summary ---
Author Organization [facility] Address [address] [place] [address] Care Team Providers Care Fixed Wing Aircraft Flight Engineer Name Role Phone Yossi Torres MD Primary Care Provider [phone] Reason for Visit * Reason Onset Date Comments Results 07/29/2013 Encounter Details Date Type Department Care Team (Late st Contact Info) Description 07/29/2013 Telephone [facility] Endocrinology - [facility] [address] [place] [address] Wilder Zaidi, [address] [facility] [address] [place] [address] Results Social History Tobacco Use [...] reviewed the patient's mostrecent laboratory results from [facility] dated 07/26/13. Advise that sodium is normal [...] Visit [facility] Endocrinology - [address] [address] Wilder Zaidi DO [address] [place] [address] [address] [place] [address] documented as [...] documented as of this encounter Care Teams Fixed Wing Aircraft Flight Engineer Relationship Specialty Start Date End Date Yossi Torres MD [address] [place] [address] [address] BUITRAGO [address] [place] [phone] PCP - General 04/17/11 03/14/16 documented as of this encounter
--- OUTSIDE RECORDS SUMMARY | 2024-07-30 02:57 | XMS_ITS | Encounter Summary ---
Author Organization [facility] Address [address] [place] [address] Care Team Providers Care Pattern Designer Name Role Phone Yossi Torres MD Primary Care Provider +1 [phone] Reason for Visit * Reason Comments Other Encounter Details Date Type Department Care Team (Late st Contact Info) Description 01/12/2013 Refill [facility] Endocrinology [facility] [address] [place], [place] [phone] Wilder Zaidi DO 62 [facility] [address] [place] [address] Other Social History Tobacco Use [...] EDT Office Visit [facility] Endocrinology [facility] [address] [place], [place] [phone] Wilder Zaidi, DO 62 [facility] [address] [place] [address] documented as of this encounter Visit Diagnoses Not on filedocumented in this encounter Discontinued Medications Medication Sig Discontinue Reason Start Date End Da te desmopressin (DDAVP) 0.1 mg tablet TAKE ONE TABLET BY MOUTH EVERY MORNING AND 1/2 TABLET AT BEDTIME Reorder 04/16/2012 01/12/2013 documented as of this encounter Care Teams Pattern Designer Relationship Specialty Start Date End Date Yossi Torres MD [address] [place] [address] [address] BU[address]O [address] [place] [phone] PCP - General 04/17/11 03/14/16 documented as of this encounter
--- OUTSIDE RECORDS SUMMARY | 2024-07-30 02:57 | XMS_ITS | Encounter Summary ---
Author Organization [facility] Address [address] [place] [address] Care Team Providers Care Gameplay Programmer Name Role Phone Akil Serrano MD Primary Care Provider [phone] Reason for Visit * Reason Onset Date Comments Medications Refill 03/19/2011 Encounter Details Date Type Department Care Team (Late st Contact Info) Description 03/19/2011 Refill [facility] Endocrinology [address] [address] Tejal Carreno RN CDE Medications [...] Office Visit [facility] Endocrinology [address] [address] Wilder Zaidi, DO 62 [facility] [address] [place] [address] documented as of this encounter Visit Diagnoses Not on filedocumented in this encounter Care Teams Gameplay Programmer Relationship Specialty Start Date End Date Akil Serrano MD [address] [place] [address] PCP - General 02/21/10 04/16/11 documented as of this encounter
--- OUTSIDE RECORDS SUMMARY | 2024-07-30 02:57 | XMS_ITS | Encounter Summary ---
Author Organization [facility] Address [address] [place] [address] Care Team Providers Care Critical Care Physician Name Role Phone Yossi Torres MD Primary Care Provider [phone] Reason for Visit * Reason Onset Date Comments Other 09/06/2013 high sodium Encounter Details Date Type Department Care Team (Late st Contact Info) Description 09/06/2013 Telephone [facility] Endocrinology - [facility] [address] [place] [address] Wilder Zaidi, 62 [facility] [address] [place] [address] Other (high sodium ) Social [...] Telephone Encounter - Ramon Lucero - 09/06/2013 7851 EST I spoke with Miguel Angel's sister [...] Visit [facility] Endocrinology - [facility] [address] [place] [address] Wilder Zaidi, 62 [facility] [address] [place] [address] documented as of this encounter Visit Diagnoses Not on filedocumented in this encounter Care Teams Critical Care Physician Relationship Specialty Start Date End Date Yossi Torres MD [address] [place] [address] [address] [place] [phone] PCP - General 04/17/11 03/14/16 documented as of this encounter
--- OUTSIDE RECORDS SUMMARY | 2024-07-30 02:57 | XMS_ITS | Encounter Summary ---
Author Organization [facility] Address [address] [place] [address] Care Team Providers Care Swimming Pool Servicer Name Role Phone Yossi Torres MD Primary Care Provider [phone]- [phone] Reason for Visit * Reason Onset Date Comments Results 12/25/2011 Encounter Details Date Type Department Care Team (Late st Contact Info) Description 12/25/2011 Telephone [facility] Endocrinology - [facility] [address] [place] [address] Wilder Zaidi, 62 [facility] [address] [place] [address] Results Social History Tobacco Use [...] Encounter - Marta Rice RN - 12/25/2011 7708 EDT Phone call to Miguel Angel's home (left message for caregiver to call back) Phone call from Bettina (his guardian)--informed her of Dr. Zaidi's message below. * Telephone Encounter - Wilder Zaidi DO - 12/25/2011 1719 EDT Please contact Miguel Angel's caretakers by phone. Labs from [facility] dated 12/21/11 show normal sodium at 143. Kidney and thyroid function tests were normal. documented in this encounter Plan of Treatment Upcoming Encounters Date Type Department Care Team (Late st Contact Info) Description 10/01/2024 13:40 EDT Office Visit [facility] Endocrinology - [facility] [address] [place] [address] Wilder Zaidi DO 62 [facility] [address] [place] [address] documented as of this encounter Visit Diagnoses Not on filedocumented in this encounter Care Teams Swimming Pool Servicer Relationship Specialty Start Date End Date Yossi Torres MD [address] [place] [address] [facility] 2 [place] [phone] PCP - General 04/17/11 03/14/16 documented as of this encounter
--- OUTSIDE RECORDS SUMMARY | 2024-07-30 02:57 | XMS_ITS | Encounter Summary ---
Author Organization [facility] Address [address] [place] [address] Care Team Providers Care Trade Analyst Name Role Phone Yossi Torres MD Primary Care Provider [phone] Emilee Cody MD Primary Care Provider + Ren Vaz MD Primary Care Provider [phone] Reason for Visit * Reason Comments Other Encounter Details Date Type Department Care Team (Late st Contact Info) Description 03/03/2013 Refill [facility] Endocrinology - [facility] [address] [place] [address] Wilder Zaidi, [address] [facility] [address] [place] [address] Other Social History Tobacco Use [...] Encounter - Georgia Rice RN - 03/03/2013 1443 EDT Patient last visit 11/04/11. Dr. Zaidi wanted to see him back in 6 months. documented in this encounter Plan of Treatment Upcoming Encounters Date Type Department Care Team (Late st Contact Info) Description 10/01/2024 13:40 EDT Office Visit [facility] Endocrinology - [facility] [address] [place], [place] [id number] Wilder Zaidi, DO [address] [facility] [address] [place] [address] documented as of this encounter Visit Diagnoses Not on filedocumented in this encounter Discontinued Medications Medication Sig Discontinue Reason Start Date End Da te desmopressin (DDAVP) 0.1 mg tablet Take 1 tab PO q AM, 1/2 tab q PM - pt needs appt for further refills. Reorder 02/03/2013 03/03/2013 documented as of this encounter Care Teams Trade Analyst Relationship Specialty Start Date End Date Yossi Torres MD [address] [place] [phone] PCP - General 04/17/11 03/14/16 Emilee Cody MD [address] [place] [phone] PCP - General 03/15/16 09/29/18 Ren Vaz MD [address] [place] [address] [place] [address] PCP - General 09/30/18 documented as of this encounter
--- OUTSIDE RECORDS SUMMARY | 2024-07-30 02:57 | XMS_ITS | Encounter Summary ---
Author Organization [facility] Address [address] [place] [address] Care Team Providers Care Cover Marker Name Role Phone Akil Serrano MD Primary Care Provider [phone] Encounter Details Date Type Department Care Team (Late st Contact Info) Description 02/24/2011 22:08 EDT - 02/25/2011 18:38 EDT Hospital Encounter [facility] Neurosurgery Unit [address] [place] [address] Jason Olea MD [address] [facility] [address] [place] [address] Anatoliy Perez MD [address] [place] [phone] 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CMS-HCC) (HCC-CMS) [...] past HH use. They do have a rag production worker who assist's Miguel Angel when he [...] Notes * Elsi Guillen MD - 02/24/2011 9798 EDT Neurosurgery Chief Complaint/ History of Present [...] spontaneously and on command. UE strength, 5/5, manager lvn bilaterally Downward toes No clonus Assesment/ Miguel [...] documented in this encounter Procedure Notes * Tug Boat Engineer, Scan - 02/24/2011 0000 EDTAssociated Order(s): ECG REPORT - SCANNED documented in this encounter OR Notes * Anesthesia Procedure Notes - Tug Boat Engineer, Scan - 02/24/2011 0000 EDT * Anesthesia Procedure Notes - Tug Boat Engineer, Scan - 02/24/2011 0000 EDT documented in [...] No High Blood Pressure: No History of CT: No Cardiac Functional Limitations:: <4 METS Angina/Palpitations: [...] patient checks Active Multi-Disciplinary problems: FALL RISK [227468] (02/25/11) Data: patient lying with eyes closed [...] RN 02/25/2011 3:01 * Scanned Note-Null - Tug Boat Engineer, Scan - 02/24/2011 0000 EDT * Scanned Note-Null - Tug Boat Engineer, Scan - 02/24/2011 0000 EDT * Scanned Note-Null - Tug Boat Engineer, Scan - 02/24/2011 0000 EDT documented in this encounter Plan of Treatment Upcoming Encounters Date Type Department Care Team (Late st Contact Info) Description 10/01/2024 13:40 EDT Office Visit [facility] Endocrinology - [address] [address] Wilder Zaidi, DO [address] [place] [address] [address] [place] [address] documented as of this encounter Procedures Procedure Name Priority Date/Time Associated Diagnosis Comments ECG REPORT - SCANNED 02/28/2011 11:47 EDT documented in this encounter Results * ECG REPORT - SCANNED (02/28/2011 11:47 EDT) 02/28/2011 11:4 7 EDT Narrative Procedure Note Tug Boat Engineer, Scan - 02/24/2011 0:00 EDT us Scan Tug Boat Engineer PROCEDURE/MINOR SURGICAL HERMES HANNON Final Result documented [...] 02/25/2011 documented in this encounter Care Teams Cover Marker Relationship Specialty Start Date End Date Akil Serrano MD [address] [facility] [place] [address] PCP - General 02/21/10 04/16/11 documented as of this encounter
--- OUTSIDE RECORDS SUMMARY | 2024-07-30 02:57 | XMS_ITS | Encounter Summary ---
Author Organization [facility] Address [address] [place] [address] Care Team Providers Care Dianetic Counselor Name Role Phone Yossi Torres MD Primary Care Provider [phone] Emilee Cody MD Primary Care Provider + Reason for Visit * Reason Onset Date Comments Returning Call 02/02/2014 to [place] Returning Call 02/02/2014 Encounter Details Date Type Department Care Team (Late st Contact Info) Description 02/01/2014 Telephone [facility] Endocrinology - [facility] [address] [place] [address] Wilder Zaidi, 62 [facility] [address] [place] [address] Returning Call (to Georgia); Returning [...] Telephone Encounter - Ludmila Harris - 02/02/2014 2394 EDT Bettina is returning Georgia's call. * [...] Office Visit [facility] Endocrinology - [address] [address] Wilder Zaidi DO 62 [facility] [address] [place] [address] documented as of this encounter Visit Diagnoses Not on filedocumented in this encounter Care Teams Dianetic Counselor Relationship Specialty Start Date End Date Yossi Torers MD [address] [place] [address] [address] [place] [phone] PCP - General 04/17/11 03/14/16 Emilee Cody MD [address] [place] [address] PCP - General 03/15/16 09/29/18 documented as of this encounter
--- OUTSIDE RECORDS SUMMARY | 2024-07-30 02:57 | XMS_ITS | Encounter Summary ---
Author Organization [facility] Address [address] [place] [address] Care Team Providers Care Nurse Administrator Name Role Phone Yossi Torres MD Primary Care Provider [phone] Emilee Cody MD Primary Care Provider + Ren Vaz MD Primary Care Provider [phone] Reason for Visit * Reason Onset Date Comments Follow-up 09/07/2013 Update 09/07/2013 Encounter Details Date Type Department Care Team (Late st Contact Info) Description 09/07/2013 Telephone [facility] Endocrinology - [facility] [address] [place] [address] Wilder Zaidi, 62 [facility] [address] [place] [address] Follow-up; Update Social History Tobacco [...] result from lab at [facility] of 152. She is wondering if [...] Office Visit [facility] Endocrinology - [facility] [address] [place] [address] Wilder Zaidi, 62 [facility] [address] [place] [address] documented as of this encounter Visit Diagnoses Not on filedocumented in this encounter Care Teams Nurse Administrator Relationship Specialty Start Date End Date Yossi Torres MD [address] [place] [address] [phone] PCP - General 04/17/11 03/14/16 Emilee Cody MD [address] [place] [phone] PCP - General 03/15/16 09/29/18 Ren Vaz MD [address] [place] [address] [place] [address] PCP - General 09/30/18 documented as of this encounter
--- OUTSIDE RECORDS SUMMARY | 2024-07-30 02:57 | XMS_ITS | Encounter Summary ---
Author Organization [facility] Address [address] [place] [address] Care Team Providers Care Mast Maker Name Role Phone Yossi Torres MD Primary Care Provider [phone] Reason for Visit * Reason Onset Date Comments Medications Refill 06/18/2011 Encounter Details Date Type Department Care Team (Late st Contact Info) Description 06/18/2011 Refill [facility] [address] [place] [address] Georgia Rice RN Medications Refill [...] Info) Description 10/01/2024 13:40 EDT Office Visit [facility] [address] [place] [address] Wilder Zaidi DO 62 [facility] [address] [place] [address] documented as of this encounter Visit Diagnoses Not on filedocumented in this encounter Discontinued Medications Medication Sig Discontinue Reason Start Date End Da te testosterone (ANDROGEL) 1 %(50 mg/5 gram) gel Place 5 g onto the skin daily. Reorder 07/27/2010 06/18/2011 documented as of this encounter Care Teams Mast Maker Relationship Specialty Start Date End Date Yossi Torres MD [address] [place] [address] [address] [place] [phone] PCP - General 04/17/11 03/14/16 documented as of this encounter
--- OUTSIDE RECORDS SUMMARY | 2024-07-30 02:57 | XMS_ITS | Encounter Summary ---
Author Organization [facility] Address [address] [place] [address] Care Team Providers Care Pelletizer Name Role Phone Yossi Torres MD Primary Care Provider [phone] Reason for Visit * Reason Onset Date Comments Results 06/01/2011 Results 06/03/2011 Encounter Details Date Type Department Care Team (Late st Contact Info) Description 06/01/2011 Telephone [facility] Endocrinology - [facility] [address] [place] [address] Wilder Zaidi DO 62 [facility] [address] [place] [address] Results; Results Social History Tobacco [...] Office Visit [facility] Endocrinology - [facility] [address] [place], [place] [phone] Wilder Zaidi DO 62 [facility] [address] [place] [address] documented as of this encounter Visit Diagnoses Not on filedocumented in this encounter Care Teams Pelletizer Relationship Specialty Start Date End Date Yossi Torres MD [address] [place] [address] [address] [place] [phone] PCP - General 04/17/11 03/14/16 documented as of this encounter
--- OUTSIDE RECORDS SUMMARY | 2024-07-30 02:57 | XMS_ITS | Encounter Summary ---
Author Organization [facility] Address [address] [place] [address] Care Team Providers Care Manager Fleet Name Role Phone Yossi Torres MD Primary Care Provider [phone] Reason for Visit * Reason Onset Date Comments Results 04/21/2012 Follow-up 04/21/2012 Encounter Details Date Type Department Care Team (Late st Contact Info) Description 04/21/2012 Telephone [facility] Endocrinology - [facility] [address] [place] [address] Wilder Zaidi, 62 [facility] [address] [place] [address] Results; Follow-up Social History Tobacco [...] phone. I have review laboratory results from [facility] dated 04/20/12. Advise that solidum level was normal at 128. Continue current doses. documented in this encounter Plan of Treatment Upcoming Encounters Date Type Department Care Team (Late st Contact Info) Description 10/01/2024 13:40 EDT Office Visit [facility] Endocrinology - [facility] [address] [place] [address] Wilder Zaidi DO 62 [facility] [address] [place] [address] documented as of this encounter Visit Diagnoses Not on filedocumented in this encounter Care Teams Manager Fleet Relationship Specialty Start Date End Date Yossi Torres MD [address] [place] [address] [address] [place] [phone] PCP - General 04/17/11 03/14/16 documented as of this encounter
--- OUTSIDE RECORDS SUMMARY | 2024-07-30 02:57 | XMS_ITS | Encounter Summary ---
Author Organization [facility] Address [address] [place] [address] Care Team Providers Care Photovoltaic Power Systems Engineer Name Role Phone Yossi Torres MD Primary Care Provider [phone] Emilee Cody MD Primary Care Provider + Reason for Visit * Reason Onset Date Comments Results 10/08/2012 Encounter Details Date Type Department Care Team (Late st Contact Info) Description 10/08/2012 Telephone [facility] Endocrinology - [facility] [address] [place] [address] Wilder Zaidi DO 62 [facility] [address] [place] [address] Results Social History Tobacco Use [...] Encounter - Georgia Rice RN - 10/08/2012 6598 EDT Phone call to Bettina (pt's sister) [...] [facility] Endocrinology - [facility] [address] [place] [address] Wilder Zaidi DO 62 [facility] [address] [place] [address] documented as of this encounter Visit Diagnoses Not on filedocumented in this encounter Care Teams Photovoltaic Power Systems Engineer Relationship Specialty Start Date End Date Yossi Torres MD [address] [place] [phone] PCP - General 04/17/11 03/14/16 Emilee Cody MD [address] [place] [address] PCP - General 03/15/16 09/29/18 documented as of this encounter
--- OUTSIDE RECORDS SUMMARY | 2024-07-30 02:57 | XMS_ITS | Encounter Summary ---
Author Organization [facility] Address [address] [place] [address] Care Team Providers Care Parts Remover Name Role Phone Yossi Torres MD Primary Care Provider [phone] Reason for Visit * Reason Onset Date Comments Results 05/09/2011 Encounter Details Date Type Department Care Team (Late st Contact Info) Description 05/09/2011 Telephone [facility] Endocrinology - [facility] [address] [place] [address] Wilder Zaidi DO 62 [facility] [address] [place] [address] Results Social History Tobacco Use [...] Office Visit [facility] Endocrinology - [facility] [address] [place] [address] Wilder Zaidi, DO 62 [facility] [address] [place] [address] documented as of this encounter Visit Diagnoses Not on filedocumented in this encounter Care Teams Parts Remover Relationship Specialty Start Date End Date Yossi Torres MD [address] [place] [address] 2 [place] [phone] PCP - General 04/17/11 03/14/16 documented as of this encounter
--- OUTSIDE RECORDS SUMMARY | 2024-07-30 02:57 | XMS_ITS | Encounter Summary ---
Author Organization [facility] Address [address] [place] [address] Care Team Providers Care Mop Machine Operator Name Role Phone Yossi Torres MD Primary Care Provider [phone] Reason for Visit * Reason Comments Hypothyroidism F/U Encounter Details Date Type Department Care Team (Latest Contact Info) Description 08/04/2014 14:20 EST Office Visit [facility] Endocrinology - [facility] [address] [place] [address] Wilder Zaidi, DO 62 [facility] [address] [place] [address] 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HCC-CMS) (Primary Dx); Primary [...] Mood seems stable. LABORATORY DATA: Obtained at [facility] on 08/01/2013 showed a sodium of [...] Visit [facility] Endocrinology - [facility] [address] [place] [address] Wilder Zaidi, DO [address] [facility] [address] [place] [address] documented as of this encounter Results * (ABNORMAL) ELECTROLYTES (08/04/2014 15:24 EST) Sodium 125(L) 136 - 145 mEq/L 08/04/2014 20:16 EST [facility] Potassium 4.0 3.5 - 5.0 mEq/L 08/04/2014 20:16 EST [facility] Chloride 89(L) 96 - 110 mEq/L 08/04/2014 20:16 EST [facility] CO2 28 24 - 32 mEq/L 08/04/2014 20:16 EST [facility] Blood specimen (specimen) BLOOD SPECIMEN / Unknown 08/04/2014 15:24 EST 08/04/2014 19:15 EST Wilder Zaidi DO CHEMISTRY & BLOOD GAS ORDERABLES Final Result [facility] [address] [place] [address] * T3 FREE (08/04/2014 15:24 EST) T3, Free 2.5 2.3 - 4.2 pg/mL 08/04/2014 21:27 EST [facility] Blood specimen (specimen) BLOOD SPECIMEN / Unknown 08/04/2014 15:24 EST 08/04/2014 19:15 EST Wilder Zaidi DO CHEMISTRY & BLOOD GAS ORDERABLES Final Result Performing Organization Address City/[facility]/ZIP Co de Phone Number [facility] [address] [place] [address] * T4 FREE (08/04/2014 15:24 EST) Free T4 1.4 0.8 - 1.8 ng/dl 08/04/2014 21:27 EST [facility] Blood specimen (specimen) BLOOD SPECIMEN / Unknown 08/04/2014 15:24 EST 08/04/2014 19:15 EST us Wilder Zaidi DO CHEMISTRY & BLOOD GAS ORDERABLES Final Result [facility] [address] [place] [address] documented in this encounter Visit Diagnoses Diagnosis 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HCC-CMS)- Primary Panhypopituitarism 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 testosterone (ANDROGEL) 1 % (50 mg/5 gram) gel packet Apply 5 g topically daily. 4 HYDROCODONE/ACET AMINOPHEN (VICODIN ORAL) Take 5 mg by mouth. 4 added in this encounter Care Teams Mop Machine Operator Relationship Specialty Start Date End Date Yossi Torres MD [address] [place] [address] [address] [place] [phone] PCP - General 04/17/11 03/14/16 documented as of this encounter
--- OUTSIDE RECORDS SUMMARY | 2024-07-30 02:57 | XMS_ITS | Encounter Summary ---
Author Organization [facility] Address [address] [place] [address] Care Team Providers Care Archaeologist Name Role Phone Akil Serrano MD Primary Care Provider [phone] Encounter Details Date Type Department Care Team (Latest Contact Info) Description 03/19/2011 Orders Only [facility] Endocrinology - [address] [address] Tejal Carreno RN CDE Panhypopituitarism [...] [facility] [address] [place] [address] Wilder Zaidi, 62 [facility] [address] [place] [address] documented as of this encounter Visit Diagnoses Diagnosis 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HCC-CMS)- Primary Panhypopituitarism documented in this encounter Care Teams Archaeologist Relationship Specialty Start Date End Date Akil Serrano MD [address] [facility] [place] [address] PCP - General 02/21/10 04/16/11 documented as of this encounter
--- OUTSIDE RECORDS SUMMARY | 2024-07-30 02:57 | XMS_ITS | Encounter Summary ---
Author Organization [facility] Address [address] [place] [address] Care Team Providers Care Hydraulic Riveter Name Role Phone Yossi Torres MD Primary Care Provider [phone] Reason for Visit * Reason Onset Date Comments Update 09/13/2013 Encounter Details Date Type Department Care Team (Late st Contact Info) Description 09/13/2013 Telephone [facility] Endocrinology - [facility] [address] [place] [id number] Wilder Zaidi, 62 [facility] [address] [place] [address] Update Social History Tobacco Use [...] Description 10/01/2024 13:40 EDT Office Visit [facility] Endocr[facility]ology - [place] [address] [place] [address] Wilder Zaidi, DO [address] [facility] [address] [place] [address] documented as of this encounter Visit Diagnoses Not on filedocumented in this encounter Care Teams Hydraulic Riveter Relationship Specialty Start Date End Date Yossi Torres MD [address] [place] [address] [facility] 2 [place] [phone] PCP - General 04/17/11 03/14/16 documented as of this encounter
--- OUTSIDE RECORDS SUMMARY | 2024-07-30 02:57 | XMS_ITS | Encounter Summary ---
Author Organization [facility] Address [address] [place] [address] Care Team Providers Care Network Field Engineer Name Role Phone Akil Serrano MD Primary Care Provider Encounter Details Date Type Department Care Team (Late st Contact Info) Description 12/13/2010 Results Only [facility]- [facility] [phone] Yossi Torres MD [address] [place] [address] 2 [place] [phone] Social History Tobacco Use Types [...] Info) Description 10/01/2024 13:40 EDT Office Visit [facility] Endocrinology - [facility] [address] [place] [address] Wilder Zaidi, 62 [facility] [address] [place] [address] documented as of this encounter Visit Diagnoses Not on filedocumented in this encounter Care Teams Network Field Engineer Relationship Specialty Start Date End Date Akil Serrano MD [address] [place] [address] PCP - General 02/21/10 04/16/11 documented as of this encounter
--- OUTSIDE RECORDS SUMMARY | 2024-07-30 02:57 | XMS_ITS | Encounter Summary ---
Author Organization [facility] Address [address] [place] [address] Care Team Providers Care Senior Marketing Analyst Name Role Phone Yossi Torres MD Primary Care Provider [phone] Reason for Visit * Reason Comments Other Encounter Details Date Type Department Care Team (Late st Contact Info) Description 02/02/2013 Refill [facility] Endocrinology - [facility] [address] [place], [place] [id number] Wilder Zaidi, 62 [facility] [address] [place] [address] Other Social History Tobacco Use [...] EDT Office Visit [facility] Endocrinology - [facility] [address] [place] [address] Wilder Zaidi, DO 62 [facility] [address] [place] [address] documented as of this encounter Visit Diagnoses Not on filedocumented in this encounter Discontinued Medications Medication Sig Discontinue Reason Start Date End Da te desmopressin (DDAVP) 0.1 mg tablet TAKE ONE TABLET BY MOUTH EVERY MORNING AND ONE HALF TABLET AT BEDTIME Reorder 01/12/2013 02/02/2013 documented as of this encounter Care Teams Senior Marketing Analyst Relationship Specialty Start Date End Date Yossi Torres MD [address] [place] [address] [address] [place] [address] PCP - General 04/17/11 03/14/16 documented as of this encounter
--- OUTSIDE RECORDS SUMMARY | 2024-07-30 02:57 | XMS_ITS | Encounter Summary ---
Author Organization [facility] Address [address] [place] [address] Care Team Providers Care Lumber Piler Operator Name Role Phone Yossi Torres MD Primary Care Provider [phone] Reason for Visit * Reason Onset Date Comments Other 01/27/2014 Encounter Details Date Type Department Care Team (Late st Contact Info) Description 01/27/2014 Telephone [facility] - [facility] [address] [place] [address] Wilder Zaidi, 62 [facility] [address] [place] [address] Other Social History Tobacco Use [...] [facility] Endocrinology [address] [address] Wilder Zaidi, DO 62 [facility] [address] [place] [address] documented as of this encounter Visit Diagnoses Not on filedocumented in this encounter Care Teams Lumber Piler Operator Relationship Specialty Start Date End Date Yossi Torres MD [address] [place] [address] [facility] 2 [place] [address] PCP - General 04/17/11 03/14/16 documented as of this encounter
--- OUTSIDE RECORDS SUMMARY | 2024-07-30 02:57 | XMS_ITS | Encounter Summary ---
Author Organization [facility] Address [address] [place] [address] Care Team Providers Care Olive Packer Name Role Phone Yossi Torres MD Primary Care Provider [phone] Reason for Visit * Reason Comments New Patient Visit head MRI Encounter Details Date Type Department Care Team (Latest Contact Info) Description 04/18/2011 12:00 EDT Office Visit [facility] Neurosurgery - Main [place] [address] [place] [address] Marvin Perez MD [address] [place] [id number] Craniopharyngioma (CMS-HCC) (HCC-CMS) (Primary Dx) Discharge [...] documented in this encounter Progress Notes * Food Expeditor, Scan - 04/19/2011 1045 EDT * Marvin Perez - 04/18/2011 1241 EDT This office note has been dictated. 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 04/18/2011 documented as of this encounter Care Teams Olive Packer Relationship Specialty Start Date End Date Yossi Torres MD [address] [place] [address] DR BUITRAGO [address] [place] [phone] PCP - General 04/17/11 03/14/16 documented as of this encounter
--- OUTSIDE RECORDS SUMMARY | 2024-07-30 02:57 | XMS_ITS | Encounter Summary ---
Author Organization [facility] Address [address] [place] [address] Care Team Providers Care Briar Cutter Name Role Phone Yossi Torres MD Primary Care Provider Emilee Cody MD Primary Care Provider + Ren Vaz MD Primary Care Provider [phone] Reason for Visit * Reason Comments Other Encounter Details Date Type Department Care Team (Late st Contact Info) Description 07/27/2013 Refill [facility] Endocrinology - [facility] [address] [place] [address] Wildre Zaidi, 62 [facility] [address] [place] [address] Other Social History Tobacco Use [...] [facility] Endocrinology - [place] [address] [place] [address] Wilder Zaidi, 62 [facility] [address] [place] [address] documented as of this encounter Visit Diagnoses Not on filedocumented in this encounter Discontinued Medications Medication Sig Discontinue Reason Start Date End Da te desmopressin (DDAVP) 0.1 mg tablet TAKE ONE TABLET BY MOUTH EVERY DAY AND TAKE 1/2 TABLET EVERY EVENING Dose adjustment 04/19/2013 07/29/2013 documented as of this encounter Care Teams Briar Cutter Relationship Specialty Start Date End Date Yossi Torres MD [address] [place] [address] [phone] PCP - General 04/17/11 03/14/16 Emilee Cody MD [address] [place] [id number] PCP - General 03/15/16 09/29/18 Ren Vaz MD [address] [place] [address] [place] [address] PCP - General 09/30/18 documented as of this encounter
--- OUTSIDE RECORDS SUMMARY | 2024-07-30 02:57 | XMS_ITS | Encounter Summary ---
Author Organization [facility] Address [address] [place] [address] Care Team Providers Care Salesperson Corsets Name Role Phone Akil Serrano MD Primary Care Provider [phone] Reason for Visit * Reason Onset Date Comments Appointment Related 04/12/2011 Encounter Details Date Type Department Care Team (Late st Contact Info) Description 04/12/2011 Telephone [facility] Endocrinology - [facility] [address] [place] [address] Wilder Zaidi DO 62 [facility] [address] [place] [address] Appointment Related Social History Tobacco [...] 10/01/2024 13:40 EDT Office Visit [facility] Endocrinology - [facility] [address] [place], [place] [phone] Wilder Zaidi DO 62 [facility] [address] [place] [phone] documented as of this encounter Visit Diagnoses Not on filedocumented in this encounter Care Teams Salesperson Corsets Relationship Specialty Start Date End Date Akil Serrano MD 74 [facility] [place] [address] PCP - General 02/21/10 04/16/11 documented as of this encounter
--- OUTSIDE RECORDS SUMMARY | 2024-07-30 02:57 | XMS_ITS | Encounter Summary ---
Author Organization [facility] Address [address] [place] [address] Care Team Providers Care Ball Shagger Name Role Phone Akil Serrano MD Primary Care Provider [phone] Reason for Visit * Reason Onset Date Comments Results 02/07/2011 Encounter Details Date Type Department Care Team (Late st Contact Info) Description 02/07/2011 Telephone [facility] Endocrinology - [facility] [address] [place] [address] Wilder Zaidi DO 62 [facility] [address] [place] [address] Results Social History Tobacco Use [...] EDT Office Visit [facility] Endocrinology - [place] [address] [place] [address] Wilder Zaidi, 62 [facility] [address] [place] [address] documented as of this encounter Visit Diagnoses Not on filedocumented in this encounter Care Teams Ball Shagger Relationship Specialty Start Date End Date Akil Serrano MD [address] [place], [place] [phone] PCP - General 02/21/10 04/16/11 documented as of this encounter
--- OUTSIDE RECORDS SUMMARY | 2024-07-30 02:57 | XMS_ITS | Encounter Summary ---
Author Organization [facility] Address [address] [place] [address] Care Team Providers Care Event Mgr Name Role Phone Yossi Torres MD Primary Care Provider [phone] Reason for Visit * Reason Comments Other Encounter Details Date Type Department Care Team (Late st Contact Info) Description 12/25/2011 Refill [facility] Endocrinology - [facility] [address] [place] [address] Wilder Zaidi, 62 [facility] [address] [place] [address] Other Social History Tobacco Use [...] Telephone Encounter - Karen Tellez - 12/25/2011 9668 EDT Testosterone called in to [facility] in [place] documented in this encounter Plan of Treatment Upcoming Encounters Date Type Department Care Team (Late st Contact Info) Description 10/01/2024 13:40 EDT Office Visit [facility] Endocrinology - [facility] [address] [facility] [address] [place], [place] [phone] Wilder Zaidi, DO 62 [facility] [address] [place] [address] documented as of this encounter Visit Diagnoses Not on filedocumented in this encounter Discontinued Medications Medication Sig Discontinue Reason Start Date End Da te testosterone (ANDROGEL) 1 %(50 mg/5 gram) gel Place 5 g onto the skin daily. Reorder 06/18/2011 12/25/2011 documented as of this encounter Care Teams Event Mgr Relationship Specialty Start Date End Date Yossi Torres MD [address] [place] [address] [address] [place] [phone] PCP - General 04/17/11 03/14/16 documented as of this encounter
--- OUTSIDE RECORDS SUMMARY | 2024-07-30 02:57 | XMS_ITS | Encounter Summary ---
Author Organization [facility] Address [address] [place] [address] Care Team Providers Care Nuclear Equipment Research Engineer Name Role Phone Yossi Torres MD Primary Care Provider [phone] Reason for Visit * Reason Onset Date Comments Other 06/23/2012 sodium 134 Encounter Details Date Type Department Care Team (Late st Contact Info) Description 06/23/2012 Telephone [facility] Endocrinology - [facility] [address] [place] [address] Wilder Zaidi DO 62 [facility] [address] [place] [address] Other (sodium 134) Social History [...] Info) Description 10/01/2024 13:40 EDT Office Visit [facility] Endocrinology - [facility] [address] [place], [place] [phone] Wilder Zaidi DO 62 [facility] [address] [place] [phone] documented as of this encounter Visit Diagnoses Not on filedocumented in this encounter Care Teams Nuclear Equipment Research Engineer Relationship Specialty Start Date End Date Yossi Torres MD [address] [place] [address] [address] [place] [phone] PCP - General 04/17/11 03/14/16 documented as of this encounter
--- OUTSIDE RECORDS SUMMARY | 2024-07-30 02:57 | XMS_ITS | Encounter Summary ---
Author Organization [facility] Address [address] [place] [address] Care Team Providers Care Cath Lab Radiological Technologist Name Role Phone Yossi Torres MD Primary Care Provider [phone] Reason for Visit * Reason Onset Date Comments Results 07/23/2011 Encounter Details Date Type Department Care Team (Late st Contact Info) Description 07/23/2011 Telephone [facility] Endocrinology - [facility] [address] [place] [address] Wilder Zaidi DO 62 [facility] [address] [place] [address] Results Social History Tobacco Use [...] Encounter - Wilder Zaidi DO - 07/23/2011 9364 EST Left message with Bettina (patient's sister) regarding most recent sodium level that was normal at 137. Continue current treatment. documented in this encounter Plan of Treatment Upcoming Encounters Date Type Department Care Team (Late st Contact Info) Description 10/01/2024 13:40 EDT Office Visit [facility] Endocrinology - [place] [address] [place] [address] Wilder Zaidi, 62 [facility] [address] [place] [address] documented as of this encounter Visit Diagnoses Not on filedocumented in this encounter Care Teams Cath Lab Radiological Technologist Relationship Specialty Start Date End Date oYssi Torres MD [address] [place] [address] [address] [place] [phone] PCP - General 04/17/11 03/14/16 documented as of this encounter
--- OUTSIDE RECORDS SUMMARY | 2024-07-30 02:57 | XMS_ITS | Encounter Summary ---
Author Organization [facility] Address [address] [place] [address] Care Team Providers Care Arch Support Technician Name Role Phone Akil Serrano MD Primary Care Provider [phone] Yossi Torres MD Primary Care Provider [phone] Emilee Cody MD Primary Care Provider + Ren Vaz MD Primary Care Provider [phone] Reason for Visit * Reason Comments Other Encounter Details Date Type Department Care Team (Late st Contact Info) Description 03/18/2011 Refill [facility] Endocrinology - [facility] [address] [place] [address] Wilder Zaidi 62 [facility] [address] [place] [address] Other Social History Tobacco Use [...] Office Visit [facility] Endocrinology - [facility] [address] [place] [address] Wilder Zaidi, 62 [facility] [address] [place] [address] documented as of this encounter Visit Diagnoses Not on filedocumented in this encounter Discontinued Medications Medication Sig Discontinue Reason Start Date End Da te desmopressin (DDAVP) 0.1 mg tabletIndications: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HCC-CMS) Take by mouth. Take one-half tab by mouth twice a day. 06/19/2010 03/19/2011 documented as of this encounter Care Teams Arch Support Technician Relationship Specialty Start Date End Date Akil Serrano MD 74 [facility] [place], [place] [address] PCP - General 02/21/10 04/16/11 Yossi Torres MD [address] [place] [address] [address] BU[address] [place] [phone] PCP - General 04/17/11 03/14/16 Emilee Cody MD [address] [place] [id number] PCP - General 03/15/16 09/29/18 Ren Vaz MD [facility] [place] [address] PCP - General 09/30/18 documented as of this encounter
--- OUTSIDE RECORDS SUMMARY | 2024-07-30 02:57 | XMS_ITS | Encounter Summary ---
Author Organization [facility] Address [address] [place] [address] Care Team Providers Care Entry Engineer Name Role Phone Yossi Torres MD Primary Care Provider [phone] Reason for Visit * Reason Onset Date Comments Medication Questions 05/15/2012 Encounter Details Date Type Department Care Team (Late st Contact Info) Description 05/15/2012 Telephone [facility] Endocrinology - [facility] [address] [place] [address] Wilder Zaidi DO 62 [facility] [address] [place] [address] Medication Questions Social History Tobacco [...] Info) Description 10/01/2024 13:40 EDT Office Visit [facility] Endocrinology - [facility] [address] [place] [address] Wilder Zaidi, 62 [facility] [address] [place] [address] documented as of this encounter Visit Diagnoses Not on filedocumented in this encounter Care Teams Entry Engineer Relationship Specialty Start Date End Date Yossi Torres MD [address] [place] [address] [address] [place] [phone] PCP - General 04/17/11 03/14/16 documented as of this encounter
--- OUTSIDE RECORDS SUMMARY | 2024-07-30 02:57 | XMS_ITS | Encounter Summary ---
Author Organization [facility] Address [address] [place] [address] Care Team Providers Care Mountain Services Manager Name Role Phone Akil Serrano MD Primary Care Provider [phone] Encounter Details Date Type Department Care Team (Late st Contact Info) Description 01/25/2011 Results Only Imaging [facility]- [facility] [phone] Yossi Torres MD [address] [place] [address] 2 [place] [address] Social History Tobacco Use Types [...] Visit [facility] Endocrinology - [facility] [address] [place] [address] Wilder Zaidi, 62 [facility] [address] [place] [address] documented as of this encounter [...] on filedocumented in this encounter Care Teams Mountain Services Manager Relationship Specialty Start Date End Date Akil Serrano MD [address] [facility] [place] [address] PCP - General 02/21/10 04/16/11 documented as of this encounter
--- OUTSIDE RECORDS SUMMARY | 2024-07-30 02:57 | XMS_ITS | Encounter Summary ---
Author Organization [facility] Address [address] [place] [address] Care Team Providers Care Cold Food Packer Name Role Phone Yossi Torres MD Primary Care Provider [phone] Reason for Visit * Reason Comments Other Encounter Details Date Type Department Care Team (Late st Contact Info) Description 04/16/[address] [facility] Endocrinology [facility] [address] [place], [place] [phone] Wilder Zaidi, 62 [facility] [address] [place] [address] Other Social History Tobacco Use [...] 10/01/2024 13:40 EDT Office Visit [facility] Endocrinology [facility] 62 [place], [place] [address] Wilder Zaidi, DO 62 [facility] [address] [place] [address] documented as of this encounter Visit Diagnoses Not on filedocumented in this encounter Discontinued Medications Medication Sig Discontinue Reason Start Date End Da te desmopressin (DDAVP) 0.1 mg tablet Take one tab in the morning and 1/2 tab at bedtime Reorder 05/03/2011 04/16/2012 documented as of this encounter Care Teams Cold Food Packer Relationship Specialty Start Date End Date Yossi Torres MD [address] [place] [address] DR BU[address]RAGO [address] [place] [phone] PCP - General 04/17/11 03/14/16 documented as of this encounter
--- OUTSIDE RECORDS SUMMARY | 2024-07-30 02:57 | XMS_ITS | Encounter Summary ---
Author Organization [facility] Address [address] [place] [address] Care Team Providers Care Grinder Mill Operator Name Role Phone Yossi Torres MD Primary Care Provider [phone] Reason for Visit * Reason Onset Date Comments Medications Refill 02/08/2013 Encounter Details Date Type Department Care Team (Late st Contact Info) Description 02/08/2013 Refill [facility] Endocrinology - [facility] [address] [place] [address] Wilder Zaidi, 62 [facility] [address] [place] [address] Medications Refill Social History Tobacco [...] [facility] - [facility] [address] [place] [address] Wilder Zaidi, 62 [facility] [address] [place] [address] documented as of this encounter Visit Diagnoses Not on filedocumented in this encounter Care Teams Grinder Mill Operator Relationship Specialty Start Date End Date Yossi Torres MD [address] [place] [address] [address] [place] [phone] PCP - General 04/17/11 03/14/16 documented as of this encounter
--- OUTSIDE RECORDS SUMMARY | 2024-07-30 02:57 | XMS_ITS | Encounter Summary ---
Author Organization [facility] Address [address] [place] [address] Care Team Providers Care Travel Manager Name Role Phone Yossi Torres MD Primary Care Provider [phone] Reason for Visit * Reason Onset Date Comments Results 09/18/2011 Encounter Details Date Type Department Care Team (Late st Contact Info) Description 09/18/[address] [facility] Endocrinology - [facility] [address] [place] [address] Wilder Zaidi, 62 [facility] [address] [place] [address] Results Social History Tobacco Use [...] Description 10/01/2024 13:[address] [facility] Endocrinology - [address] [phone] Wilder Zaidi DO 62 [facility] [address] [place] [address] documented as of this encounter Visit Diagnoses Not on filedocumented in this encounter Care Teams Travel Manager Relationship Specialty Start Date End Date Yossi Torres MD [address] [place] [address] [address] [place] [phone] PCP - General 04/17/11 03/14/16 documented as of this encounter
--- OUTSIDE RECORDS SUMMARY | 2024-07-30 02:58 | XMS_ITS | Encounter Summary ---
Author Organization [facility] Address [address] [place] [address] Care Team Providers Care Whizzer Operator Name Role Phone Akil Serrano MD Primary Care Provider [phone] Reason for Visit * Reason Onset Date Comments Other 07/09/2010 Patient had sodi um level checked, injection of Desmpressin changed to pill form. Guardian noticed urination frequency down and bright yellow in color Encounter Details Date Type Department Care Team (Late st Contact Info) Description 07/09/2010 Telephone [facility] Endocrinology - [facility] [address] [place] [address] Wilder Zaidi DO 62 [facility] [address] [place] [address] Other (Patient had sodium level [...] Encounter - Wilder Zaidi DO - 07/10/2010 0865 EST Spoke with final inspector shuttle Marta via phone. Patient's guardian Marta and sister attempted to contact office yesterday. Message was not routed to this provider until this am. Patient with complicated medical history including central diabetes insipidus. Switched from SQ to oral DDAVP as a result of national shortage of SQ DDAVP. 4 days after switch final inspector shuttle noticed change in behavior. ER trip last night showed sodium allegedly high. Contacted on-call endocrinologists who increased oral DDAVP to 0.1 mg int he am and 0.5 mg in the evening. Advised family to increased fluid intake to 60 oz per day andto closely monitor urine output. Gave final inspector shuttle PAS number to contact me directly with any questions or concerns. Will check in tomorrow am 07/11/10. May obtain repeat sodium. documented in this encounter Plan of Treatment Upcoming Encounters Date Type Department Care Team (Late st Contact Info) Description 10/01/2024 13:40 EDT Office Visit [facility] Endocrinology - [address] [address] Wilder Zaidi DO 62 [facility] [address] [place] [address] documented as of this encounter Visit Diagnoses Diagnosis 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HCC-CMS)- Primary Diabetes insipidus documented in this encounter Care Teams Whizzer Operator Relationship Specialty Start Date End Date Akil Serrano MD [address] [facility] [place] [address] PCP - General 02/21/10 04/16/11 documented as of this encounter
--- OUTSIDE RECORDS SUMMARY | 2024-07-30 02:58 | XMS_ITS | Encounter Summary ---
Author Organization [facility] Address [address] [place] [address] Care Team Providers Care Mock Up Assembler Name Role Phone Akil Serrano MD Primary Care Provider [phone] Reason for Visit * Reason Onset Date Comments Labs Only 07/17/2010 Encounter Details Date Type Department Care Team (Late st Contact Info) Description 07/17/2010 Orders Only [facility] Endocrinology - [facility] [address] [place] [address] Wilder Zaidi DO 62 [facility] [address] [place] [address] 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CMS-HCC) [...] Info) Description 10/01/2024 13:40 EDT Office Visit [facility] Endocrinology [facility] [address] [place] [address] Wilder Zaidi DO 62 [facility] [address] [place] [address] documented as of this encounter Visit Diagnoses Diagnosis 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HCC-CMS)- Primary Diabetes insipidus documented in this encounter Care Teams Mock Up Assembler Relationship Specialty Start Date End Date Akil Serrano MD [address] [facility] [place] [address] PCP - General 02/21/10 04/16/11 documented as of this encounter
--- OUTSIDE RECORDS SUMMARY | 2024-07-30 02:58 | XMS_ITS | Encounter Summary ---
Author Organization [facility] Address [address] [place] [address] Care Team Providers Care Traffic Operations Engineer Name Role Phone Akil Serrano MD Primary Care Provider [phone] Encounter Details Date Type Department Care Team (Latest Contact Info) Description 08/31/2010 10:42 EST - 08/31/2010 23:37 EST Hospital Encounter [facility] Perioperative Services- [facility] [address] [place], [place] [address] Hilton Quick MD [address] [...] - 08/31/2010 1111 EST 1055-pt admitted to [facility] bed # 3 for sedated [...] [facility] Endocrinology - [address] [address] Wilder Zaidi, [address] [facility] [address] [place] [address] documented as of this [...] 12/27/2014 added in this encounter Care Teams Traffic Operations Engineer Relationship Specialty Start Date End Date Akil Serrano MD [address] [facility] [place] [address] PCP - General 02/21/10 04/16/11 documented as of this encounter
--- OUTSIDE RECORDS SUMMARY | 2024-07-30 02:58 | XMS_ITS | Encounter Summary ---
Author Organization [facility] Address [address] [place] [address] Care Team Providers Care Alumni Coordinator Name Role Phone Akil Serrano MD Primary Care Provider [phone] Reason for Visit * Reason Onset Date Comments Medication Management 06/20/2010 Bettina hankins ld like call back regarding medication change. Encounter Details Date Type Department Care Team (Late Contact Info) Description 06/20/2010 Telephone [facility] End[facility]ology - [facility] [address] [place] [address] Wilder Zaidi DO 62 [facility] [address] [place] [address] Medication Management (Bettina would like [...] [facility] Endocrinology - [place] [address] [place], [place] [phone] Wilder Zaidi, [address] [facility] [address] [place] [address] documented as of this encounter Visit Diagnoses Not on filedocumented in this encounter Care Teams Alumni Coordinator Relationship Specialty Start Date End Date Akil Serrano MD [address] [place] [address] PCP - General 02/21/10 04/16/11 documented as of this encounter
--- OUTSIDE RECORDS SUMMARY | 2024-07-30 02:58 | XMS_ITS | Encounter Summary ---
Author Organization [facility] Address [address] [place] [address] Care Team Providers Care Laboratory Secretary Name Role Phone Akil Serrano MD Primary Care Provider [phone] Reason for Visit * Reason Onset Date Comments Results 07/17/2010 Encounter Details Date Type Department Care Team (Late st Contact Info) Description 07/17/2010 Telephone [facility] Endocrinology - [facility] [address] [place] [address] Wilder Zaidi DO 62 [facility] [address] [place] [address] Results Social History Tobacco Use [...] Encounter - Wilder Zaidi DO - 07/17/2010 7360 EST Recent blood work from at [facility] showed sodium normal at 139. Recheck [...] Info) Description 10/01/2024 13:40 EDT Office Visit [facility] Endocrinology - [facility] [address] [place] [address] Wilder Zaidi DO 62 [facility] [address] [place] [address] documented as of this encounter Visit Diagnoses Not on filedocumented in this encounter Care Teams Laboratory Secretary Relationship Specialty Start Date End Date Akil Serrano MD [address] [facility] [place] [address] PCP - General 02/21/10 04/16/11 documented as of this encounter
--- OUTSIDE RECORDS SUMMARY | 2024-07-30 02:58 | XMS_ITS | Encounter Summary ---
Author Organization [facility] Address [address] [place] [address] Care Team Providers Care Cotton Farmer Name Role Phone Akil Serrano MD Primary Care Provider Reason for Visit * Reason Onset Date Comments Diabetes 07/13/[address] Trena Zaidi know [facility] patient's sodium level checked today at [facility], at 139. Encounter Details Date Type Department Care Team (Late st Contact Info) Description 07/13/2010 Telephone [facility] Endocrinology - [facility] [address] [place] [address] Wilder Zaidi, 62 [facility] [address] [place] [address] Diabetes (Called to let Dr. Zaidi know sweetie patient's sodium [facility] checked today at [facility] [...] Description 10/01/2024 13:40 EDT Office Visit [facility] Endocrinology - [facility] [address] [place] [address] Wilder Zaidi, 62 [facility] [address] [place] [address] documented as of this encounter Visit Diagnoses Not on filedocumented in this encounter Care Teams Cotton Farmer Relationship Specialty Start Date End Date Akil Serrano MD [address] [place] [address] PCP - General 02/21/10 04/16/11 documented as of this encounter
--- OUTSIDE RECORDS SUMMARY | 2024-07-30 02:58 | XMS_ITS | Encounter Summary ---
Author Organization [facility] Address [address] [place] [address] Care Team Providers Care Consultant Education Name Role Phone Akil Serrano MD Primary Care Provider [phone] Reason for Visit * Reason Onset Date Comments Other 11/21/2010 Encounter Details Date Type Department Care Team (Late Contact Info) Description 11/21/2010 Telephone [facility] Endocrinology - [facility] [address] [place] [address] Wilder Zaidi, 62 [facility] [address] [place] [address] Other Social History Tobacco Use [...] 10/01/2024 13:40 EDT Office Visit [facility] Endocrinology - [facility] [address] [facility], [place] [address] Wilder Zaidi, 62 [facility] [address] [place] [address] documented as of this encounter Visit Diagnoses Not on filedocumented in this encounter Care Teams Consultant Education Relationship Specialty Start Date End Date Akil Serrano MD [address] [place] [address] PCP - General 02/21/10 04/16/11 documented as of this encounter
--- OUTSIDE RECORDS SUMMARY | 2024-07-30 02:58 | XMS_ITS | Encounter Summary ---
Author Organization [facility] Address [address] [place] [address] Care Team Providers Care Campus Administrative Assistant Name Role Phone Akil Serrano MD Primary Care Provider [phone] Reason for Visit * Reason Onset Date Comments Medication Problem 06/19/2010 Encounter Details Date Type Department Care Team (Late st Contact Info) Description 06/19/2010 Refill [facility] Endocrinology - [facility] [address] [place], [place] [phone] Wilder Zaidi DO 62 [facility] [address] [place] [address] Medication Problem Social History Tobacco [...] Telephone Encounter - Wilder Zaidi, - 06/19/2010 1516 EST Spoke with Gerry nurse Radha this [...] you have been able to find it. [phone] ext [phone] documented in this encounter Plan of Treatment Upcoming Encounters Date Type Department Care Team (Late st Contact Info) Description 10/01/2024 13:40 EDT Office Visit [facility] Endocrinology - 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 Takes .08 ml SQ BID 06/19/2010 documented as of this encounter Care Teams Campus Administrative Assistant Relationship Specialty Start Date End Date Akil Serrano MD [address] [facility] [place] [address] PCP - General 02/21/10 04/16/11 documented as of this encounter
--- OUTSIDE RECORDS SUMMARY | 2024-07-30 02:58 | XMS_ITS | Encounter Summary ---
Author Organization [facility] Address [address] [place] [address] Care Team Providers Care Coordinating Producer Name Role Phone Akil Serrano MD Primary Care Provider [phone] Encounter Details Date Type Department Care Team (Late st Contact Info) Description 02/21/2010 Results Only [facility]'s [facility] - [facility] [address] [place], [place] [address] [facility] [address] [place] [phone] Social History Tobacco Use Types Packs/Day Years [...] 10/01/2024 13:40 EDT Office Visit [facility] Endocrinology - [facility] [address] [place] [address] Wilder Zaidi DO 62 [facility] [address] [place] [address] documented as of this encounter [...] Calculated Calcium 9.4 8.5 - 10.5 mg/dl [facility] Glucose, Serum 81 70 - 100 mg/dl [facility] Fasting? No ANIS[facility] GARCIA Blood specimen (specimen) 02/21/2010 12:28 EDT 02/21/2010 12:30 EDT Skyler Edwards [facility] CHEMISTRY & BL OOD GAS ORDERABLES Final Result [facility] [address] [place] [address] * (ABNORMAL) TESTOSTERONE (02/21/2010 12:28 EDT) Testosterone, Total <10(L) 241 - 827 ng/dL [facility] Comment:Sample retested, res ult confirmed Blood specimen (specimen) 02/21/2010 12:28 EDT 02/21/2010 12:30 EDT Skyler Edwards [facility] CHEMISTRY & BL OOD GAS ORDERABLES Final Result Performing Organization Address [facility] de Phone Number [facility] [address] [place] [address] * T4 FREE (02/21/2010 12:28 EDT) Free T4 1.3 0.8 - 1.8 ng/dL [facility] Blood specimen (specimen) 02/21/2010 12:28 EDT 02/21/2010 12:30 EDT Skyler Edwards [facility] CHEMISTRY & BL OOD GAS ORDERABLES Final Result Performing Organization Address [facility] de Phone Number [address] [address] documented in this encounter Visit Diagnoses Not on filedocumented in this encounter Care Teams Coordinating Producer Relationship Specialty Start Date End Date Akil Serrano MD [address] [facility] [place] [address] PCP - General 02/21/10 04/16/11 documented as of this encounter
--- OUTSIDE RECORDS SUMMARY | 2024-07-30 02:58 | XMS_ITS | Encounter Summary ---
Author Organization [facility] Address [address] [place] [address] Care Team Providers Care Comic Artist Name Role Phone Corin Skinner MD Primary Care Provider [phone] Encounter Details Date Type Department Care Team (Latest Contact Info) Description 04/13/2009 11:12 EDT - 04/13/2009 23:59 EDT Hospital Encounter [facility] [address] [place] [address] Maxine Felix, ENGINEERING JOB TITLES Discharge Disposition: Home or Self Care Social [...] Description 10/01/2024 13:40 EDT Office Visit [facility] Endocrinology - [facility] [address] [place] [address] Wilder Zaidi, 62 [facility] [address] [place] [address] documented as of this encounter [...] OR DERABLES Final Result Performing Organization Address City/State/[facility] Co de Phone Number [facility] [address] [place] [address] * T4 FREE (04/13/2009 11:41 EDT) Free T4 1.6 0.8 - 1.8 ng/dL [facility] Blood specimen (specimen) 04/13/2009 11:41 EDT 04/13/2009 11:43 EDT Maxine Felix APRN CHEMISTRY & BLOOD GAS OR DERABLES Final Result Performing Organization Address City/[facility] de Phone Number [facility] [address] [place] [address] * (ABNORMAL) OSMOLALITY (04/13/2009 11:41 EDT) Osmolality Cintia 273(L) 280 - 300 MOS/KG [facility] Blood specimen (specimen) 04/13/2009 11:41 EDT 04/13/2009 11:43 EDT Maxine Ugarte Isidro ENGINEERING [employer]OB TITLES CHEMISTRY & BLOOD GAS OR DERABLES Final Result Performing Organization Address [facility] de Phone Number [facility] [address] [place] [address] * CORTISOL (04/13/2009 11:41 EDT) Pathologist [facility] Cortisol 25 ug/dl [facility] Comment: 7-9a.m.=4.3-22.4 3-5p.m.=3.1-16.7 Blood specimen (specimen) 04/13/2009 11:41 EDT 04/13/2009 11:43 EDT Maxine Felix ENGINEERING [employer] CHEMISTRY & BLOOD GAS OR DERABLES Final Result Performing Organization Address [facility] de Phone Number [facility] [address] [place] [address] documented in this encounter Visit Diagnoses Not on filedocumented in this encounter Care Teams Comic Artist Relationship Specialty Start Date End Date Corin Skinner MD [address] [place] [phone] PCP - General 10/24/08 2 documented as of this encounter
--- OUTSIDE RECORDS SUMMARY | 2024-07-30 02:58 | XMS_ITS | Encounter Summary ---
Author Organization [facility] Address [address] [place] [address] Care Team Providers Care Pipe Bending Machine Operator Name Role Phone Yan Demarco MD Primary Care Provider [phone] Encounter Details Date Type Department Care Team (Late st Contact Info) Description 10/04/2009 12:00 EDT - 10/04/2009 23:59 EDT Hospital Encounter [facility] [address] [place] [address] [facility] [address] [place] [phone] Discharge Disposition: Home or Self Care Social History Tobacco Use Types Packs/Day Years Used Date Smoking Tobacco: Never Assessed Sex and Gender Information Value Date Recorded Sex Assigned at Not on file Legal Sex Male 18:35 EST Gender Identity Not on file Sexual Orientation Not on file documented as of this encounter Discharge Disposition Disposition Code Departure Means Destination Home or Self Fpc documented in this encounter Plan of Treatment Upcoming Encounters Date Type Department Care Team (Late st Contact Info) Description 10/01/2024 13:40 EDT Office Visit [facility] Endocrinology - [facility] [address] [place], [place] [phone] Wilder Zaidi, DO 62 [facility] [address] [place] [phone] documented as of this encounter Procedures Procedure Name Priority Date/Time Associated Diagnosis Comments T4 FREE Routine 10/04/2009 12:42 EDT SODIUM Routine 10/04/2009 12:42 EDT documented in this encounter Results * SODIUM (10/04/2009 12:42 EDT) Sodium 140 136 - 145 mEq/L [facility] Blood specimen (specimen) 10/04/2009 12:42 EDT 10/04/2009 12:43 EDT Skyler Edwards [facility] CHEMISTRY & BL OOD GAS ORDERABLES Final Result Performing Organization Address City/[facility] Co de Phone Number [facility] [address] [place] [address] * T4 FREE (10/04/2009 12:42 EDT) Free T4 1.4 0.8 - 1.8 ng/dL [facility] Blood specimen (specimen) 10/04/2009 12:42 EDT 10/04/2009 12:43 EDT Skyler Edwards [facility] CHEMISTRY & BL OOD GAS ORDERABLES Final Result Performing Organization Address [facility] Co de Phone Number [facility] [address] [place] [address] documented in this encounter Visit Diagnoses Not on filedocumented in this encounter Care Teams Pipe Bending Machine Operator Relationship Specialty Start Date End Date Yan Demarco MD [address] [place] [address] PCP - General 08/22/09 02/20/10 documented as of this encounter
--- OUTSIDE RECORDS SUMMARY | 2024-07-30 02:58 | XMS_ITS | Encounter Summary ---
Author Organization [facility] Address [address] [place] [address] Care Team Providers Care Hoop Maker Machine Name Role Phone Akil Serrano MD Primary Care Provider Encounter Details Date Type Department Care Team (Late st Contact Info) Description 02/21/2010 11:47 EDT - 02/21/2010 23:59 EDT Hospital Encounter [facility] [address] [place] [address] [facility] [address] [place] [phone] Discharge Disposition: Home or Self Care Social History Tobacco Use Types Packs/Day Years Used Date Smoking Tobacco: Never Assessed Sex and Gender Information Value Date Recorded Sex Assigned at Not on file Legal Sex Male 18:35 EST Gender Identity Not on file Sexual Orientation Not on file documented as of this encounter Discharge Disposition Disposition Code Departure Means Destination Home or Self [facility] documented in this encounter Plan of Treatment Upcoming Encounters Date Type Department Care Team (Late st Contact Info) Description 10/01/2024 13:40 EDT Office Visit [facility] Endocrinology - [facility] [address] [place] [address] Wilder Zaidi, DO 62 [facility] [address] [place] [phone] documented as of this encounter Visit Diagnoses Not on filedocumented in this encounter Care Teams Hoop Maker Machine Relationship Specialty Start Date End Date Akil Serrano MD [address] [place] [address] PCP - General 02/21/10 04/16/11 documented as of this encounter
--- OUTSIDE RECORDS SUMMARY | 2024-07-30 02:58 | XMS_ITS | Encounter Summary ---
Author Organization [facility] Address [address] [place] [address] Care Team Providers Care Stuffed Casing Tier Name Role Phone Akil Serrano MD Primary Care Provider Encounter Details Date Type Department Care Team (Late st Contact Info) Description 04/10/2010 Results Only [facility] [phone] Akil Serrano MD [address] [facility] [place], [place] [phone] Social History Tobacco Use Types Packs/Day Years [...] Info) Description 10/01/2024 13:40 EDT Office Visit [facility] Endocrinology - [facility] [address] [place], [place] [phone] Wilder Zaidi, 62 [facility] [address] [place] [address] documented as of this encounter Visit Diagnoses Not on filedocumented in this encounter Care Teams Stuffed Casing Tier Relationship Specialty Start Date End Date Akil Serrano MD [address] [place], [place] [address] PCP - General 02/21/10 04/16/11 documented as of this encounter
--- OUTSIDE RECORDS SUMMARY | 2024-07-30 02:58 | XMS_ITS | Encounter Summary ---
Author Organization [facility] Address [address] [place] [address] Care Team Providers Care Archives Technician Name Role Phone Akil Serrano MD Primary Care Provider [phone] Encounter Details Date Type Department Care Team (Late st Contact Info) Description 05/23/2010 Abstract [facility] Endocrinology - [address] [address] Wilder Zaidi DO [address] [place] [address] [place] [address] Social History Tobacco Use Types Packs/Day [...] Office Visit [facility] Endocrinology [address] [address] Wilder Zaidi DO [address] [place] [address] documented as of this encounter Visit [...] 0 added in this encounter Care Teams Archives Technician Relationship Specialty Start Date End Date Akil Serrano MD [address] [facility] [place] [address] PCP - General 02/21/10 04/16/11 documented as of this encounter
--- OUTSIDE RECORDS SUMMARY | 2024-07-30 02:58 | XMS_ITS | Encounter Summary ---
Author Organization [facility] Address [address] [place] [address] Care Team Providers Care Rail Equipment Operator Name Role Phone Corin Skinner MD Primary Care Provider [phone] Encounter Details Date Type Department Care Team (Late st Contact Info) Description 12/07/2008 11:45 EDT - 12/07/2008 23:[address] [facility] [address] [place] [address] [facility] [address] [place] [phone] Discharge Disposition: Home or Self Care Social History Tobacco Use Types Packs/Day Years Used Date Smoking Tobacco: Never Assessed Sex and Gender Information Value Date Recorded Sex Assigned at Not on file Legal Sex Male 18:35 EST Gender Identity Not on file Sexual Orientation Not on file documented as of this encounter Discharge Disposition Disposition Code Departure Means Destination Home or Self [facility] documented in this encounter Plan of Treatment Upcoming Encounters Date Type Department Care Team (Late st Contact Info) Description 10/01/2024 13:40 EDT Office Visit [facility] Endocrinology - [facility] [address] [place] [address] Wilder Zaidi, DO 62 [facility] [address] [place] [phone] documented as of this encounter Procedures Procedure Name Priority Date/Time Associated Diagnosis Comments T4 FREE Routine 12/07/2008 12:01 EDT BASIC METABOLIC PANEL (BMP) Routine 12/07/2008 12:01 EDT documented in this encounter Results * T4 FREE (12/07/2008 12:01 EDT) Free T4 1.6 0.8 - 1.8 ng/dL [facility] Blood specimen (specimen) 12/07/2008 12:01 EDT 12/07/2008 12:03 EDT Skyler Edwards [facility] CHEMISTRY & BL OOD GAS ORDERABLES Final Result Performing Organization Address [facility] [[email or web address]] Co de Phone Number [facility] [address] [place] [address] * (ABNORMAL) BASIC METABOLIC PANEL (12/07/2008 12:01 [...] 12:01 EDT 12/07/2008 12:03 EDT Skyler Edwards [facility] CHEMISTRY & BL OOD GAS ORDERABLES Final Result [facility] [address] [place] [address] documented in this encounter Visit Diagnoses Not on filedocumented in this encounter Care Teams Rail Equipment Operator Relationship Specialty Start Date End Date Corin Skinner MD [address] [place] [phone] PCP - General 10/24/08 08/21/09 documented as of this encounter
--- OUTSIDE RECORDS SUMMARY | 2024-07-30 02:58 | XMS_ITS | Encounter Summary ---
Author Organization [facility] Address [address] [place] [address] Care Team Providers Care Boat Rental Clerk Name Role Phone Akil Serrano MD Primary Care Provider [phone] Reason for Visit * Reason Onset Date Comments Medications Refill 06/12/2010 Encounter Details Date Type Department Care Team (Late st Contact Info) Description 06/12/2010 Refill [facility] - [facility] [address] [place], [place] [id number] [facility] [address] [place] [address] Medications Refill Social History Tobacco [...] 06/13/2010 0913 EST Spoke to Radha at [facility]. Miguel Angel has enough DDAVP until next week and sees Dr. Zaidi, adult endo, 06/14/10. Advised her that Dr. Zaidi's office will prescribe medication for the future; he just needs to know what pharmacy to use. * Telephone Encounter - [place] Cool - 06/12/2010 1600 EST Radha is calling from [facility] (her EXT is [phone]). Pt's medication can [...] Office Visit [facility] Endocrinology - [facility] [address] [place] [address] Wilder Zaidi, DO [address] [facility] [address] [place] [address] documented as of this encounter Visit Diagnoses Not on filedocumented in this encounter Care Teams Boat Rental Clerk Relationship Specialty Start Date End Date Akil Serrano MD [address] [place] [address] PCP - General 02/21/10 04/16/11 documented as of this encounter
--- OUTSIDE RECORDS SUMMARY | 2024-07-30 02:58 | XMS_ITS | Encounter Summary ---
Author Organization [facility] Address [address] [place] [address] Care Team Providers Care Pump Assembler Name Role Phone Akil Serrano MD Primary Care Provider [phone] Reason for Visit * Reason Onset Date Comments Medication Problem 07/10/2010 REQUESTING CA LL BACK TO DISCUSS PT'S MEDICATION. REQUESTING CALL BACK FROM THE Encounter Details Date Type Department Care Team (Late st Contact Info) Description [facility] [address] [address] Wilder Zaidi DO [address] [facility] [address] [place] [address] Medication Problem (REQUESTING CALL BACK [...] Encounter - Wilder Zaidi DO - 07/10/2010 5004 EST Spoke with Bettina Michelle's sister. She [...] slight darkening of his urine. Miguel Angel's tester operator helper Marta noticed a continued decrease in urination to 3 times per day and dark beer colored urine Sunday 07/09 and Monday 07/10. Patient had sodium level drawn on 07/09/10 at [facility] ER after being told to go to [...] Bettina to speak with Marta (Miguel Angel's tester operator helper) and reduce DDAVP to 0.1 mg tablet one half tab BID and to increase fluid to 60 oz per day. Miguel Angel will have a repeat sodium level in the am Friday07/11/10. I have faxed the orders to [facility]. I advised Bettina to have Miguel Angel taken to ED if hiscondition were to change. documented in this encounter Plan of Treatment Upcoming Encounters Date Type Department Care Team (Late st Contact Info) Description 10/01/2024 13:40 EDT Office Visit [facility] Endocrinology - [facility] [address] [place], [place] [id number] Wilder Zaidi DO [address] 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
--- OUTSIDE RECORDS SUMMARY | 2024-07-30 02:58 | XMS_ITS | Encounter Summary ---
Author Organization [facility] Address [address] [place] [address] Care Team Providers Care Lean Manufacturing Specialist Name Role Phone Corin Skinner MD Primary Care Provider Encounter Details Date Type Department Care Team (Latest Contact Info) Description 12/28/2008 9:53 EDT - 12/28/2008 23:59 EDT Hospital Encounter [facility] [address] [place] [address] Jacqueline Early MD [address] [place] [phone] Discharge Disposition: Home or Self Care Social History Tobacco Use Types Packs/Day Years Used Date Smoking Tobacco: Never Assessed Sex and Gender Information Value Date Recorded Sex Assigned at Not on file Legal Sex Male 18:35 EST Gender Identity Not on file Sexual Orientation Not on file documented as of this encounter Discharge Disposition Disposition Code Departure Means Destination Home or Self Mcfp documented in this encounter Plan of Treatment Upcoming Encounters Date Type Department Care Team (Late st Contact Info) Description 10/01/2024 13:40 EDT Office Visit [facility] Endocr[facility]ology - [facility] [address] [place], [place] [id number] Wilder Zaidi, [address] [facility] [address] [place] [phone] documented as of this encounter Procedures Procedure [...] NEG [facility] Comment:PER FATHER Specific [place], Urine Unable to obtain specimen 1.005 - [...] ORDERABLES Final Re sult Performing Organization Address City/[facility]/ZIP Co de Phone Number [facility] [address] [place] [address] * DIRECT BILIRUBIN (12/28/2008 10:01 EDT) Conjugated Bilirubin 0.0 0.0 - 0.3 mg/dl [facility] Unconjugated Bilirubin 0.3 0.1 - 1.1 mg/dl [facility] 12/28/2008 10:0 1 EDT 12/28/2008 10:22 EDT us Jacqueline Early MD CHEMISTRY & BLOOD GAS ORDERABL ES Final Result Performing Organization Address [facility] de Phone Number [facility] [address] [place] [address] * (ABNORMAL) COMPREHENSIVE METABOLIC PANEL (12/28/2008 10:01 [...] ORDERABL ES Final Result Performing Organization Address [facility] de Phone Number [facility] [address] [place] [address] * TESTS ADDED BY PHONE (12/28/2008 10:01 EDT) Tests to be added CMP,DBIL [facility] Diagnosis Code SAME [facility] Who Called [facility] Location Code [facility] Read Back/Confirmed ? YES [facility] 12/28/2008 10:0 1 EDT 12/28/2008 10:22 EDT us Jacqueline Early MD CHEMISTRY & BLOOD GAS ORDERABL ES Final Result Performing Organization Address [facility] de Phone Number [facility] [address] [place] [address] * CORTISOL (12/28/2008 10:01 EDT) Cortisol 18 ug/dl [facility] Comment: 7-9a.m.=4.3-22.4 3-5p.m.=3.1-16.7 Blood specimen (specimen) 12/28/2008 10:01 EDT 12/28/2008 10:22 EDT us Jacqueline Early MD CHEMISTRY & BLOOD GAS ORDERABL ES Final Result Performing Organization Address [facility] de Phone Number [facility] [address] [place] [address] * ELECTROLYTES (12/28/2008 10:01 EDT) Sodium 137 [...] ORDERABL ES Final Result Performing Organization Address [facility] Co de Phone Number [facility] [address] [place] [address] * (ABNORMAL) GLUCOSE, SERUM (12/28/2008 10:01 EDT) Glucose, Serum 49(LL) 70 - 100 mg/dl [facility] Comment:Sample retested, res ult confirmed Blood specimen (specimen) 12/28/2008 10:01 EDT 12/28/2008 10:22 EDT us Jacqueline Early MD CHEMISTRY & BLOOD GAS ORDERABL ES Final Result Performing Organization Address [facility] de Phone Number [facility] [address] [place] [address] documented in this encounter Visit Diagnoses Not on filedocumented in this encounter Care Teams Lean Manufacturing Specialist Relationship Specialty Start Date End Date Corin Skinner MD [address] [place] [phone] PCP - General 10/24/08 08/21/09 documented as of this encounter
--- OUTSIDE RECORDS SUMMARY | 2024-07-30 02:58 | XMS_ITS | Encounter Summary ---
Author Organization [facility] Address [address] [place] [address] Care Team Providers Care Tester Operator Name Role Phone Akil Serrano MD Primary Care Provider [phone] Encounter Details Date Type Department Care Team (Late st Contact Info) Description 07/03/2010 Results Only Imaging [facility] [phone] Akil Serrano MD [address] [facility] [place], [place] [address] Social History Tobacco Use Types Packs/Day Years [...] 10/01/2024 13:40 EDT Office Visit [facility] Endocrinology - [facility] [address] [place] [address] Wilder Zaidi, [address] [facility] [address] [place] [address] documented as of this encounter Visit Diagnoses Not on filedocumented in this encounter Care Teams Tester Operator Relationship Specialty Start Date End Date Akil Serrano MD [address] [place] [address] PCP - General 02/21/10 04/16/11 documented as of this encounter
--- OUTSIDE RECORDS SUMMARY | 2024-07-30 02:58 | XMS_ITS | Encounter Summary ---
Author Organization [facility] Address [address] [place] [address] Care Team Providers Care Clean Rice Grader And Reel Tender Name Role Phone Akil Serrano MD Primary Care Provider [phone] Reason for Visit * Reason Onset Date Comments Results 11/30/2010 his sodium was 1 40 (down from 151 the week before) from 100 oz water for several dys (4 days?) I am having them go back to 60 oz today and recheck Friday Encounter Details Date Type Department Care Team (Late st Contact Info) Description 11/30/2010 Telephone [facility] Endocrinology - [address] [address] Ramon Lucero MD [address] [place] [address], [facility] [address] [place] [address] Results (his sodium was 140 [...] Telephone Encounter - Ramon Lucero - 11/30/2010 4647 EDT Sodium came down to 140 on 100 oz of water daily. I spoke with his sister Bettina and told her to godown to 80 oz on , 11/29. Then today, 11/30 I got nervous and asked the morning caregiver to go downto 60 oz again and recheck Friday. She understands. He's behaving normally and stools are more formed (had some loose stools). documented in this encounter Plan of Treatment Upcoming Encounters Date Type Department Care Team (Late st Contact Info) Description 10/01/2024 13:40 EDT Office Visit [facility] Endocrinology - [facility] [address] [place], [place] [phone] Wilder Zaidi, [address] [facility] [address] [place] [phone] documented as of this encounter Visit Diagnoses Not on filedocumented in this encounter Care Teams Clean Rice Grader And Reel Tender Relationship Specialty Start Date End Date Akil Serrano MD [address] [facility] [address] [place] [address] PCP - General 02/21/10 04/16/11 documented as of this encounter
--- OUTSIDE RECORDS SUMMARY | 2024-07-30 02:58 | XMS_ITS | Encounter Summary ---
Author Organization [facility] Address [address] [place] [address] Care Team Providers Care Imaging Clerk Name Role Phone Akil Serrano MD Primary Care Provider [phone] Reason for Visit * Reason Onset Date Comments Results 11/26/2010 Sodium 151 up fr om 148 last week on 80 oz daily water (increase from baseline) - I told her to go up to 100 oz daily water and recheck Encounter Details Date Type Department Care Team (Late st Contact Info) Description 11/26/2010 Telephone [facility] Endocrinology - [address] [address] Ramon Lucero MD [address] [place] [address], [address] [phone] Results (Sodium 151 up from [...] Telephone Encounter - Ramon Lucero - 11/26/2010 1621 EDT Sodium 151 up from 148 last week on 80 oz daily water (increase from baseline) - I told her to go up to 100 oz daily water and recheck . documented in this encounter Plan of Treatment Upcoming Encounters Date Type Department Care Team (Late st Contact Info) Description 10/01/2024 13:40 EDT Office Visit [facility] Endocrinology - [facility] [address] [place] [address] Wilder Zaidi, [address] [facility] [address] [place] [address] documented as of this encounter Visit Diagnoses Not on filedocumented in this encounter Care Teams Imaging Clerk Relationship Specialty Start Date End Date Akil Serrano MD [address] [place] [address] PCP - General 02/21/10 04/16/11 documented as of this encounter
--- OUTSIDE RECORDS SUMMARY | 2024-07-30 02:58 | XMS_ITS | Encounter Summary ---
Author Organization [facility] Address [address] [place] [address] Care Team Providers Care Silver Chaser Name Role Phone Akil Serrano MD Primary Care Provider [phone] Reason for Visit * Reason Onset Date Comments Medications Refill 07/26/2010 PATIENT OUT O F MED Encounter Details Date Type Department Care Team (Late st Contact Info) Description 07/26/[address] [address] Wilder Zaidi, [address] [facility] [address] [place] [address] Medications Refill (PATIENT OUT OF [...] EDT Office Visit [facility] Endocrinology [address] [place], [place] [phone] Wilder Zaidi, [address] [facility] [address] [place] [address] documented as of this encounter Visit Diagnoses Not on filedocumented in this encounter Discontinued Medications Medication Sig Discontinue Reason Start Date End Da te testosterone (ANDROGEL) 1 % (25 mg/2.5 g) GlPk Apply topically daily. 07/27/2010 documented as of this encounter Care Teams Silver Chaser Relationship Specialty Start Date End Date Akil Serrano MD [address] [facility] [address] [place] [address] PCP - General 02/21/10 04/16/11 documented as of this encounter
--- OUTSIDE RECORDS SUMMARY | 2024-07-30 02:58 | XMS_ITS | Encounter Summary ---
Author Organization [facility] Address [address] [place] [address] Care Team Providers Care Cathode Washer Name Role Phone Akil Serrano MD Primary Care Provider [phone] Reason for Visit * Reason Comments Hypogonadism Encounter Details Date Type Department Care Team (Latest Contact Info) Description 06/14/2010 13:00 EST Office Visit [facility] Endocrinology - [facility] [address] [place] [phone] Wilder Zaidi, DO [address] [facility] [address] [place] [address] 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HCC-CMS) (Primary Dx) Social [...] Miguel Angel Burgos, in consultation in the [facility] [facility] adult endocrinology clinic today 06/14/2010 for further evaluation and management 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 I had the pleasure of meeting Mr. Burgos and his sister as well as his caretakers from the [facility] at the pediatric endocrine transition clinic with Dr. Edwards, on 02/21/2010. Please see that note for full details. Dr. Edwards did have a follow-up visit on 02/28/2010 with Miguel Angel's caregivers, as well as Bettina and his nurse from the [facility], Radha Conteh. Today both his caretakers and [...] is applied oncea day by his male film and video editor using gloves. They use of pump at [...] He currently lives with his caretakers in [place], [place], and has the services as described [...] compounded DDAVP delivered from our pharmacy at [facility]. Will speak briefly with Dr. Edwards [...] being.We will consider further therapy once his film and video editor has been established. Plan: 1. Will address [...] - DSP Job ID: SM Doc ID: [id number] Ext Doc ID: [id number] cc: MD Akil Marsh MD Paul James Zimakas, MD documented in this encounter Plan of Treatment Upcoming Encounters Date Type Department Care Team (Late st Contact Info) Description 10/01/2024 13:40 EDT Office Visit [facility] Endocrinology - [facility] [address] [place], [place] [phone] Wilder Zaidi DO [address] [facility] [address] [place] [address] documented as of this encounter Visit Diagnoses Diagnosis 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[facility])- Primary Panhypopituitarism documented in this encounter Care Teams Cathode Washer Relationship Specialty Start Date End Date Akil Serrano MD [address] [facility] [place] [address] PCP - General 02/21/10 04/16/11 documented as of this encounter
--- OUTSIDE RECORDS SUMMARY | 2024-07-30 02:59 | XMS_ITS | Encounter Summary ---
Author Organization [facility] Address [address] [place] [address] Care Team Providers Care Casino Duty Manager Name Role Phone Corin Skinner MD Primary Care Provider Encounter Details Date Type Department Care Team (Late st Contact Info) Description 10/21/2008 17:35 EDT - 11/04/2008 11:59 EDT Hospital Encounter [facility] [address] [place] [address] Christopher Ga MD [address] [place] [address] Jacqueline Early MD [address] [address] Slava Pineda MD Discharge Disposition: [...] OF PRESENT ILLNESS Miguel Angel is an [id number] with a complex past medical history, including [...] parentsin the afternoon. He was taken to [facility], where he was noted to [...] low serum sodium was 120 recorded at [facility] and his high serum sodium was 161. At the time of transfer to the regularinpatient unit, his serum electrolytes had stabilized. His most recent full set of electrolytes were [id number], potassium 3.3, chloride 109 and CO2 30. [...] of Unasyn. A blood culture done at [facility] prior to admission was negative. Neurologic: [...] He received stress dose steroids, beginning at [facility]. This stress dose was weaned to [...] Bejarano MD P - SS Job ID: [id number] Document ID: [id number] cc: MD Cy Walker MD Matthew Giefer, [...] an 18-year-old male who was admitted to [facility] October 21, 2008. Miguel Angel has a [...] months since theyreturned from a [place] in [place] which was in February of 2008. She states that his fluid totals and his medications have been adjusted and that in her opinion some of these adjustments have resulted in Robininstability. She states that she is well aware of his medication regimen and that Miguel Angel gets all of his medications as prescribed. Isabel ([facility]) states that for several days prior to [...] Miguel Angel Burgos , took him to [facility] where he was then transferred to [facility]. MOC states that they took him to the emergency room in [facility] but then did not go with Migeul Angel to [place]. She stated that somebody spoke with folks in the PICU in [place] but neither she nor her have been down to see Miguel Angel since he was admitted on October 21, 2008. She states that thefamily vehicle is under repair and they have no transportation to the hospital. [facility] states that currently Miguel Angel is getting services in the home. She states that he gets 55 hours per week of personal care assistance. He has a personal development educator from 3 p.m. until 3 a.m. Friday through and then on Fridays his personal development educator is there from 3 p.m. until 10 p.m. MO states that he attends school Friday through Friday and gets home at 3 p.m. MO states that they also get respite which is an in-home care assistant usually on the weekends. She states that currentlythey have used their budget up for the year. There also had been some VNA services. It is not clearwhether she is still getting VNA services. [facility] states that she and Bettina father are [...] not feel that they miss medication doses. [facility] states that Miguel Angel is able to [...] hurting himself and does this on purpose. [facility] states that she and Bettina father have no desire to place Miguel Angel in a residential facility at this time. They feel that they are doing an adequate job with him at home. They feel that the servicesthat he is getting are helpful. RAHEL states that she does not like [facility]. She states that in the past, they have mismanaged Miguel Angel and because of that she does not like coming here and associating with the doctors here. She states that, if they could, they would prefer to have him in [place] but that they have not been able [...] states that she gets some help through [place] [employer]. She also states that she gets some help through the [facility] organization but she was not sure which one. REVIEW OF SYSTEMS Behavioral review of systems: [facility] states that Miguel Angel tends to stay [...] of twisting his nipples to induce pain. [facility] also states that there are occasions when he will eat his own feces. Medical review of systems: Prior to this admission, [facility] states that he was doing some screeching and just behaviorally seemed to be a little out of sorts. There was decreased activity for several days prior to admission which she attributed to his testosterone shot. There was no history of fever orof any other respiratory symptoms. All other review of systems was negative. PAST MEDICAL HISTORY [facility] states that Miguel Angel was relatively well [...] care physician for Miguel Angel is Marissa Skinnre and Jc Demarco. There has been a referral made to the Adult Protective Services and the fugitive investigator on the case is Sukhi Young. 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 His date of is February 10, 1966. She states that he didhave some prior involvement with [facility] regarding custody issues of an older daughter of his. Isabel reports that the biological mother of Miguel Angel was Jeannette Burgos. She when Miguel Angel was in [facility] about three years ago. She of complications [...] Review of the photographs taken by the [facility] nurse on admission show the [...] Miguel Angel since he as admitted to [facility] and have made minimal attempts to contact health care personnel at [facility]. This is the third admission for Miguel Angel since he was discharged from [facility] 2007. RECOMMENDATIONS 1. Physical exam was completed today. 2. I have spoken with the Adult Protective Services fugitive investigator, Sukhi Young, regarding the injuries noted [...] can be put in place to assure Henry safety. 5. The nature of his bruises [...] Romo MD P - SADE Job ID: [id number] Document ID: [id number] cc: MD Corin Curry MD Daniel W Larrow, MD Karyn Patno, MD * Adult Protective Services, Sukhi Young documented in this encounter Plan of Treatment Upcoming Encounters Date Type Department Care Team (Late st Contact Info) Description 10/01/2024 13:40 EDT Office Visit [facility] Endocrinology - [place] [address] [place] [address] Wilder Zaidi, DO [address] [place] [address] Pending Results Name Type Priority [...] ORDER LYNDSEY Final Result Performing Organization Address [facility] Co de Phone Number [facility] [address] [place] [address] * SODIUM (11/04/2008 7:00 EDT) Sodium Duplicate Test Request 136 - 145 mEq/L [facility] Blood specimen (specimen) 11/04/2008 7:00 EDT 11/04/2008 7:21 EDT us Christopher Ga MD CHEMISTRY & BLOOD GAS ORDER LYNDSEY Final Result Performing Organization Address [facility] de Phone Number [facility] [address] [place] [address] * (ABNORMAL) GLUCOSE, SERUM (11/04/2008 6:50 EDT) Glucose, Serum 67(L) 70 - 100 mg/dl [facility] Comment:Heparinized plasma. Blood specimen (specimen) 11/04/2008 6:50 EDT 11/04/2008 7:20 EDT us Christopher Ga MD CHEMISTRY & BLOOD GAS ORDER LYNDSEY Final Result Performing Organization Address [facility] de Phone Number [facility] [address] [place] [address] * ELECTROLYTES (11/04/2008 6:50 EDT) Sodium 140 [...] ORDER LYNDSEY Final Result Performing Organization Address [facility] de Phone Number [facility] [address] [place] [address] * CREATININE (11/04/2008 6:50 EDT) Creatinine 0.70 0.7 - 1.5 mg/dl [facility] Comment:Heparinized plasma. GFR, Calculated >60 ml/min/1.7 3m2 [facility] Comment:Heparinized plasma. Blood specimen (specimen) 11/04/2008 6:50 EDT 11/04/2008 7:20 EDT us Christopher Ga MD CHEMISTRY & BLOOD GAS ORDER LYNDSEY Final Result Performing Organization Address [facility] de Phone Number [facility] [address] [place] [address] * BUN (11/04/2008 6:50 EDT) Pathologist [facility] BUN 15 10 - 26 mg/dl [facility] Comment:Heparinized plasma. Blood specimen (specimen) 11/04/2008 6:50 EDT 11/04/2008 7:20 EDT us Christopher Ga MD CHEMISTRY & BLOOD GAS ORDER LYNDSEY Final Result Performing Organization Address [facility] de Phone Number [facility] [address] [place] [address] * ELECTROLYTES (11/03/2008 19:00 EDT) Sodium 140 [...] ORDER LYNDSEY Final Result Performing Organization Address [facility] Co de Phone Number [facility] [address] [place] [address] * CREATININE (11/03/2008 19:00 EDT) Pathologist [facility] Creatinine 0.70 0.7 - 1.5 mg/dl [facility] GFR, Calculated >60 ml/min/1.7 3m2 [facility] Blood specimen (specimen) 11/03/2008 19:00 EDT 11/03/2008 19:24 EDT us Christopher Ga MD CHEMISTRY & BLOOD GAS ORDER LYNDSEY Final Result Performing Organization Address [facility] de Phone Number [facility] [address] [place] [address] * BUN (11/03/2008 19:00 EDT) Pathologist [facility] BUN 15 10 - 26 mg/dl [facility] Blood specimen (specimen) 11/03/2008 19:00 EDT 11/03/2008 19:24 EDT us Christopher Ga MD CHEMISTRY & BLOOD GAS ORDER LYNDSEY Final Result Performing Organization Address [facility] Phone Number [facility] [address] [place] [address] * OSMOLALITY (11/03/2008 14:00 EDT) Pathologist [facility] Osmolality Cintia 300 280 - 300 MOS/KG [facility] Blood specimen (specimen) 11/03/2008 14:00 EDT 11/03/2008 14:36 EDT us Christopher Ga MD CHEMISTRY & BLOOD GAS ORDER LYNDSEY Final Result Performing Organization Address [facility] de Phone Number [facility] [address] [place] [address] * SODIUM (11/03/2008 14:00 EDT) Pathologist [facility] Sodium 143 136 - 145 mEq/L [facility] Blood specimen (specimen) 11/03/2008 14:00 EDT 11/03/2008 14:36 EDT us Christopher Ga MD CHEMISTRY & BLOOD GAS ORDER LYNDSEY Final Result Performing Organization Address [facility] Co de Phone Number [facility] [address] [place] [address] * SODIUM, URINE RANDOM (11/03/2008 13:30 EDT) Sodium, Ur Sample quantity insufficient for testing. mEq/L [facility] Urine specimen (specimen) 11/03/2008 13:30 EDT 11/03/2008 15:04 EDT us Christopher Ga MD URINALYSIS ORDERABLES Final Result Performing Organization Address [facility] Phone Number [facility] [address] [place] [address] * OSMOLALITY,URINE (11/03/2008 13:30 EDT) Osmolality, Ur Sample quantity insufficient for testing. 392 - 1090 MOS/KG [facility] Urine specimen (specimen) 11/03/2008 13:30 EDT 11/03/2008 15:04 EDT us Christopher Ga MD URINALYSIS ORDERABLES Final Result Performing Organization Address [facility] Phone Number [facility] [address] [place] [address] * (ABNORMAL) GLUCOSE, SERUM (11/03/2008 6:20 EDT) Glucose, Serum 69(L) 70 - 100 mg/dl [facility] Blood specimen (specimen) 11/03/2008 6:20 EDT 11/03/2008 6:27 EDT us Christopher Ga MD CHEMISTRY & BLOOD GAS ORDER LYNDSEY Final Result Performing Organization Address [facility] de Phone Number [facility] [address] [place] [address] * ELECTROLYTES (11/03/2008 6:20 EDT) Sodium 144 [...] ORDER LYNDSEY Final Result Performing Organization Address [facility] de Phone Number [facility] [address] [place] [address] * CREATININE (11/03/2008 6:20 EDT) Creatinine 0.70 0.7 - 1.5 mg/dl [facility] GFR, Calculated >60 ml/min/1.7 3m2 [facility] Blood specimen (specimen) 11/03/2008 6:20 EDT 11/03/2008 6:27 EDT us Christopher Ga MD CHEMISTRY & BLOOD GAS ORDER LYNDSEY Final Result Performing Organization Address [facility] de Phone Number [facility] [address] [place] [address] * BUN (11/03/2008 6:20 EDT) BUN 15 10 - 26 mg/dl [facility] Blood specimen (specimen) 11/03/2008 6:20 EDT 11/03/2008 6:27 EDT us Christopher Ga MD CHEMISTRY & BLOOD GAS ORDER LYNDSEY Final Result Performing Organization Address [facility] Co de Phone Number [facility] [address] [place] [address] * SODIUM (11/03/2008 0:15 EDT) Sodium 143 136 - 145 mEq/L [facility] Blood specimen (specimen) 11/03/2008 0:15 EDT 11/03/2008 0:30 EDT us Christopher Ga MD CHEMISTRY & BLOOD GAS ORDER LYNDSEY Final Result Performing Organization Address [facility] de Phone Number [facility] [address] [place] [address] * ELECTROLYTES (11/02/2008 18:05 EDT) Sodium 141 [...] ORDER LYNDSEY Final Result Performing Organization Address [facility] de Phone Number [facility] [address] [place] [address] * CREATININE (11/02/2008 18:05 EDT) Creatinine 0.70 0.7 - 1.5 mg/dl [facility] GFR, Calculated >60 ml/min/1.7 3m2 [facility] Blood specimen (specimen) 11/02/2008 18:05 EDT 11/02/2008 18:22 EDT us Christopher Ga MD CHEMISTRY & BLOOD GAS ORDER LYNDSEY Final Result Performing Organization Address [facility] de Phone Number [facility] [address] [place] [address] * BUN (11/02/2008 18:05 EDT) BUN 17 10 - 26 mg/dl [facility] Blood specimen (specimen) 11/02/2008 18:05 EDT 11/02/2008 18:22 EDT us Christopher Ga MD CHEMISTRY & BLOOD GAS ORDER LYNDSEY Final Result Performing Organization Address [facility] de Phone Number [facility] [address] [place] [address] * (ABNORMAL) GLUCOSE, SERUM (11/02/2008 5:50 EDT) Glucose, Serum 68(L) 70 - 100 mg/dl [facility] Blood specimen (specimen) 11/02/2008 5:50 EDT 11/02/2008 6:04 EDT us Christopher Ga MD CHEMISTRY & BLOOD GAS ORDER LYNDSEY Final Result Performing Organization Address [facility] de Phone Number [facility] [address] [place] [address] * ELECTROLYTES (11/02/2008 5:50 EDT) Sodium 142 [...] ORDER LYNDSEY Final Result Performing Organization Address [facility] de Phone Number [facility] [address] [place] [address] * CREATININE (11/02/2008 5:50 EDT) Creatinine 0.70 0.7 - 1.5 mg/dl [facility] GFR, Calculated >60 ml/min/1.7 3m2 [facility] Blood specimen (specimen) 11/02/2008 5:50 EDT 11/02/2008 6:04 EDT us Christopher Ga MD CHEMISTRY & BLOOD GAS ORDER LYNDSEY Final Result Performing Organization Address [facility] de Phone Number [facility] [address] [place] [address] * BUN (11/02/2008 5:50 EDT) BUN 15 10 - 26 mg/dl [facility] Blood specimen (specimen) 11/02/2008 5:50 EDT 11/02/2008 6:04 EDT us Christopher Ga MD CHEMISTRY & BLOOD GAS ORDER LYNDSEY Final Result Performing Organization Address [facility] de Phone Number [facility] [address] [place] [address] * SODIUM (11/01/2008 22:00 EDT) Pathologist [facility] Sodium 137 136 - 145 mEq/L [facility] Blood specimen (specimen) 11/01/2008 22:00 EDT 11/01/2008 22:24 EDT us Christopher Ga MD CHEMISTRY & BLOOD GAS ORDER LYNDSEY Final Result Performing Organization Address [facility] de Phone Number [facility] [address] [place] [address] * SODIUM, URINE RANDOM (11/01/2008 13:30 EDT) Sodium, Ur 15.0 mEq/L [facility] Urine specimen (specimen) 11/01/2008 13:30 EDT 11/01/2008 13:51 EDT us Christopher Ga MD URINALYSIS ORDERABLES Final Result Performing Organization Address [facility] de Phone Number [facility] [address] [place] [address] * (ABNORMAL) OSMOLALITY,URINE (11/01/2008 13:30 EDT) Osmolality, Ur 163(L) 392 - 1090 MOS/KG [facility] Urine specimen (specimen) 11/01/2008 13:30 EDT 11/01/2008 13:51 EDT us Christopher Ga MD URINALYSIS ORDERABLES Final Result Performing Organization Address [facility] Phone Number [facility] [address] [place] [address] * OSMOLALITY (11/01/2008 13:20 EDT) Pathologist [facility] Osmolality Cintia 294 280 - 300 MOS/KG [facility] Blood specimen (specimen) 11/01/2008 13:20 EDT 11/01/2008 13:52 EDT us Christopher Ga MD CHEMISTRY & BLOOD GAS ORDER LYNDSEY Final Result Performing Organization Address [facility] Phone Number [facility] [address] [place] [address] * SODIUM (11/01/2008 13:20 EDT) Pathologist [facility] Sodium 138 136 - 145 mEq/L [facility] Blood specimen (specimen) 11/01/2008 13:20 EDT 11/01/2008 13:52 EDT Christopher Ga MD CHEMISTRY & BLOOD GAS ORDER LYNDSEY Final Result Performing Organization Address [facility] [address] [place] [address] * GLUCOSE, SERUM (11/01/2008 7:00 EDT) Pathologist [facility] Glucose, Serum 77 70 - 100 mg/dl [facility] Blood specimen (specimen) 11/01/2008 7:00 EDT 11/01/2008 7:18 EDT Christopher Ga MD CHEMISTRY & BLOOD GAS ORDER LYNDSEY Final Result Performing Organization Address [facility] de Phone Number [facility] [address] [place] [address] * (ABNORMAL) ELECTROLYTES (11/01/2008 7:00 EDT) Sodium [...] ORDER LYNDSEY Final Result Performing Organization Address [facility] de Phone Number [facility] [address] [place] [address] * CREATININE (11/01/2008 7:00 EDT) Creatinine 0.80 0.7 - 1.5 mg/dl [facility] GFR, Calculated >60 ml/min/1.7 3m2 [facility] Blood specimen (specimen) 11/01/2008 7:00 EDT 11/01/2008 7:18 EDT us Christopher Ga MD CHEMISTRY & BLOOD GAS ORDER LYNDSEY Final Result Performing Organization Address [facility] de Phone Number [facility] [address] [place] [address] * BUN (11/01/2008 7:00 EDT) BUN 18 10 - 26 mg/dl [facility] Blood specimen (specimen) 11/01/2008 7:00 EDT 11/01/2008 7:18 EDT us Christopher Ga MD CHEMISTRY & BLOOD GAS ORDER LYNDSEY Final Result Performing Organization Address [facility] de Phone Number [facility] [address] [place] [address] * HOLD SST (10/31/2008 20:00 EDT) Hold SST Hold for further testing. Specimen will be held for 5 days. [facility] 10/31/2008 20:0 0 EDT 10/31/2008 20:13 EDT us Christopher Ga MD LAB INFO SERVICE AND SUPPOR T & PHONE RESULT Final Result Performing Organization Address [facility] Phone Number [facility] [address] [place] [address] * CORTISOL (10/31/2008 20:00 EDT) Cortisol 17 ug/dl [facility] Comment: 7-9a.m.=4.3-22.4 3-5p.m.=3.1-16.7 Blood specimen (specimen) 10/31/2008 20:00 EDT 10/31/2008 20:13 EDT us Christopher Ga MD CHEMISTRY & BLOOD GAS ORDER LYNDSEY Final Result Performing Organization Address [facility] Phone Number [facility] [address] [place] [address] * (ABNORMAL) GLUCOSE, SERUM (10/31/2008 7:00 EDT) Glucose, Serum 68(L) 70 - 100 mg/dl [facility] Blood specimen (specimen) 10/31/2008 7:00 EDT 10/31/2008 7:33 EDT us Christopher Ga MD CHEMISTRY & BLOOD GAS ORDER LYNDSEY Final Result Performing Organization Address [facility] de Phone Number [facility] [address] [place] [address] * ELECTROLYTES (10/31/2008 7:00 EDT) Sodium 142 [...] ORDER LYNDSEY Final Result Performing Organization Address [facility] de Phone Number [facility] [address] [place] [address] * CREATININE (10/31/2008 7:00 EDT) Creatinine 0.70 0.7 - 1.5 mg/dl [facility] GFR, Calculated >60 ml/min/1.7 3m2 [facility] Blood specimen (specimen) 10/31/2008 7:00 EDT 10/31/2008 7:33 EDT us Christopher Ga MD CHEMISTRY & BLOOD GAS ORDER LYNDSEY Final Result Performing Organization Address [facility] Co de Phone Number [facility] [address] [place] [address] * BUN (10/31/2008 7:00 EDT) BUN 16 10 - 26 mg/dl [facility] Blood specimen (specimen) 10/31/2008 7:00 EDT 10/31/2008 7:33 EDT us Christopher Ga MD CHEMISTRY & BLOOD GAS ORDER LYNDSEY Final Result Performing Organization Address [facility] de Phone Number [facility] [address] [place] [address] * GLUCOSE, SERUM (10/30/2008 18:45 EDT) Glucose, Serum 88 70 - 100 mg/dl [facility] 10/30/2008 18:4 5 EDT 10/30/2008 18:56 EDT us Christopher Ga MD CHEMISTRY & BLOOD GAS ORDER LYNDSEY Final Result Performing Organization Address [facility] Co de Phone Number [facility] [address] [place] [address] * SODIUM (10/30/2008 18:45 EDT) Pathologist [facility] Sodium 141 136 - 145 mEq/L [facility] 10/30/2008 18:4 5 EDT 10/30/2008 18:56 EDT Christopher Ga MD CHEMISTRY & BLOOD GAS ORDER LYNDSEY Final Result Performing Organization Address [facility] de Phone Number [facility] [address] [place] [address] * CORTISOL (10/30/2008 18:45 EDT) Pathologist [facility] Cortisol 32 ug/dl [facility] Comment: 7-9a.m.=4.3-22.4 3-5p.m.=3.1-16.7 Blood specimen (specimen) 10/30/2008 18:45 EDT 10/30/2008 18:56 EDT Christopher Ga MD CHEMISTRY & BLOOD GAS ORDER LYNDSEY Final Result Performing Organization Address [facility] de Phone Number [facility] [address] [place] [address] * SODIUM, URINE RANDOM (10/30/2008 7:15 EDT) Pathologist [facility] Sodium, Ur 65.0 mEq/L [facility] Urine specimen (specimen) 10/30/2008 7:15 EDT 10/30/2008 7:32 EDT Christopher Ga MD URINALYSIS ORDERABLES Final Result Performing Organization Address [facility] de Phone Number [facility] [address] [place] [address] * (ABNORMAL) OSMOLALITY,URINE (10/30/2008 7:15 EDT) Pathologist [facility] Osmolality, Ur 199(L) 392 - 1090 MOS/KG [facility] Urine specimen (specimen) 10/30/2008 7:15 EDT 10/30/2008 7:32 EDT Christopher Ga MD URINALYSIS ORDERABLES Final Result Performing Organization Address [facility] de Phone Number [facility] [address] [place] [address] * (ABNORMAL) GLUCOSE, SERUM (10/30/2008 7:15 EDT) Glucose, Serum 69(L) 70 - 100 mg/dl [facility] Comment:Heparinized plasma. Blood specimen (specimen) 10/30/2008 7:15 EDT 10/30/2008 7:32 EDT us Christopher Ga MD CHEMISTRY & BLOOD GAS ORDER LYNDSEY Final Result Performing Organization Address [facility] Phone Number [facility] [address] [place] [address] * ELECTROLYTES (10/30/2008 7:15 EDT) Sodium 142 [...] ORDER LYNDSEY Final Result Performing Organization Address [facility] Phone Number [facility] [address] [place] [address] * CREATININE (10/30/2008 7:15 EDT) Creatinine 0.70 0.7 - 1.5 mg/dl [facility] Comment:Heparinized plasma. GFR, Calculated >60 ml/min/1.7 3m2 [facility] Comment:Heparinized plasma. Blood specimen (specimen) 10/30/2008 7:15 EDT 10/30/2008 7:32 EDT us Christopher Ga MD CHEMISTRY & BLOOD GAS ORDER LYNDSEY Final Result Performing Organization Address [facility] Phone Number [facility] [address] [place] [address] * BUN (10/30/2008 7:15 EDT) BUN 13 10 - 26 mg/dl [facility] Comment:Heparinized plasma. Blood specimen (specimen) 10/30/2008 7:15 EDT 10/30/2008 7:32 EDT us Christopher Ga MD CHEMISTRY & BLOOD GAS ORDER LYNDSEY Final Result Performing Organization Address [facility] Phone Number [facility] [address] [place] [address] * (ABNORMAL) OSMOLALITY,URINE (10/29/2008 19:50 EDT) Pathologist [facility] Osmolality, Ur 106(L) 392 - 1090 MOS/KG [facility] Urine specimen (specimen) 10/29/2008 19:50 EDT 10/29/2008 20:08 EDT us Christopher Ga MD URINALYSIS ORDERABLES Final Result Performing Organization Address [facility] Phone Number [facility] [address] [place] [address] * GLUCOSE, SERUM (10/29/2008 18:15 EDT) Pathologist [facility] Glucose, Serum 87 70 - 100 mg/dl [facility] Blood specimen (specimen) 10/29/2008 18:15 EDT 10/29/2008 18:44 EDT us Christopher Ga MD CHEMISTRY & BLOOD GAS ORDER LYNDSEY Final Result Performing Organization Address [facility] de Phone Number [facility] [address] [place] [address] * SODIUM (10/29/2008 18:15 EDT) Pathologist [facility] Sodium 136 136 - 145 mEq/L [facility] Blood specimen (specimen) 10/29/2008 18:15 EDT 10/29/2008 18:44 EDT us Christopher Ga MD CHEMISTRY & BLOOD GAS ORDER LYNDSEY Final Result Performing Organization Address [facility] Phone Number [facility] [address] [place] [address] * SODIUM, URINE RANDOM (10/29/2008 18:15 EDT) Sodium, Ur 87.0 mEq/L [facility] Urine specimen (specimen) 10/29/2008 18:15 EDT 10/29/2008 18:45 EDT us Christopher Ga MD URINALYSIS ORDERABLES Final Result Performing Organization Address [facility] Phone Number [facility] [address] [place] [address] * (ABNORMAL) OSMOLALITY,URINE (10/29/2008 18:15 EDT) Pathologist [facility] Osmolality, Ur 336(L) 392 - 1090 MOS/KG [facility] Urine specimen (specimen) 10/29/2008 18:15 EDT 10/29/2008 18:45 EDT us Christopher Ga MD URINALYSIS ORDERABLES Final Result Performing Organization Address [facility] Phone Number [facility] [address] [place] [address] * (ABNORMAL) GLUCOSE, SERUM (10/29/2008 6:40 EDT) Pathologist [facility] Glucose, Serum 63(L) 70 - 100 mg/dl [facility] Blood specimen (specimen) 10/29/2008 6:40 EDT 10/29/2008 6:55 EDT Christopher Ga MD CHEMISTRY & BLOOD GAS ORDER LYNDSEY Final Result Performing Organization Address [facility] Co de Phone Number [facility] [address] [place] [address] * ELECTROLYTES (10/29/2008 6:40 EDT) Sodium 138 [...] ORDER LYNDSEY Final Result Performing Organization Address [facility] de Phone Number [facility] [address] [place] [address] * CREATININE (10/29/2008 6:40 EDT) Pathologist [facility] Creatinine 0.70 0.7 - 1.5 mg/dl [facility] GFR, Calculated >60 ml/min/1.7 3m2 [facility] Blood specimen (specimen) 10/29/2008 6:40 EDT 10/29/2008 6:55 EDT us Christopher Ga MD CHEMISTRY & BLOOD GAS ORDER LYNDSEY Final Result Performing Organization Address [facility] de Phone Number [facility] [address] [place] [address] * BUN (10/29/2008 6:40 EDT) BUN 13 10 - 26 mg/dl [facility] Blood specimen (specimen) 10/29/2008 6:40 EDT 10/29/2008 6:55 EDT us Christopher Ga MD CHEMISTRY & BLOOD GAS ORDER LYNDSEY Final Result Performing Organization Address [facility] Co de Phone Number [facility] [address] [place] [address] * (ABNORMAL) OSMOLALITY,URINE (10/29/2008 6:35 EDT) Osmolality, Ur 171(L) 392 - 1090 MOS/KG [facility] 10/29/2008 6:35 EDT 10/29/2008 6:57 EDT us Christopher Ga MD URINALYSIS ORDERABLES Final Result Performing Organization Address [facility] Phone Number [facility] [address] [place] [address] * SODIUM, URINE RANDOM (10/29/2008 6:35 EDT) Sodium, Ur 71.0 mEq/L [facility] 10/29/2008 6:35 EDT 10/29/2008 6:57 EDT us Christopher Ga MD URINALYSIS ORDERABLES Final Result Performing Organization Address [facility] Phone Number [facility] [address] [place] [address] * SODIUM, URINE RANDOM (10/29/2008 1:35 EDT) Sodium, Ur 262.0 mEq/L [facility] Urine specimen (specimen) 10/29/2008 1:35 EDT 10/29/2008 1:54 EDT us Christopher Ga MD URINALYSIS ORDERABLES Final Result Performing Organization Address [facility] Phone Number [facility] [address] [place] [address] * OSMOLALITY,URINE (10/29/2008 1:35 EDT) Osmolality, Ur 581 392 - 1090 MOS/KG [facility] Urine specimen (specimen) 10/29/2008 1:35 EDT 10/29/2008 1:54 EDT Christopher Ga MD URINALYSIS ORDERABLES Final Result Performing Organization Address [facility] Co de Phone Number [facility] [address] [place] [address] * TESTS ADDED BY PHONE (10/28/2008 19:25 EDT) 10/28/2008 19:2 5 EDT 10/28/2008 19:34 EDT Christopher Ga MD CHEMISTRY & BLOOD GAS ORDER LYNDSEY Final Result Performing Organization Address [facility] de Phone Number [facility] [address] [place] [address] * (ABNORMAL) OSMOLALITY,URINE (10/28/2008 19:25 EDT) Pathologist [facility] Osmolality, Ur 327(L) 392 - 1090 MOS/KG [facility] 10/28/2008 19:2 5 EDT 10/28/2008 19:36 EDT us Christopher Ga MD URINALYSIS ORDERABLES Final Result Performing Organization Address [facility] de Phone Number [facility] [address] [place] [address] * HOLD GREEN TOP (10/28/2008 19:25 EDT) [facility] Hold Green Top Hold for further testing. Specimen will be held for 5 days. [facility] 10/28/2008 19:2 5 EDT 10/28/2008 19:34 EDT us Christopher Ga MD LAB INFO SERVICE AND SUPPOR T & PHONE RESULT Final Result Performing Organization Address [facility] de Phone Number [facility] [address] [place] [address] * SODIUM, URINE RANDOM (10/28/2008 19:25 EDT) Pathologist [facility] Sodium, Ur 115.0 mEq/L [facility] Urine specimen (specimen) 10/28/2008 19:25 EDT 10/28/2008 19:36 EDT Christopher Ga MD URINALYSIS ORDERABLES Final Result Performing Organization Address [facility] de Phone Number [facility] [address] [place] [address] * GLUCOSE, SERUM (10/28/2008 19:25 EDT) Glucose, Serum 80 70 - 100 mg/dl [facility] Blood specimen (specimen) 10/28/2008 19:25 EDT 10/28/2008 19:34 EDT us Christopher Ga MD CHEMISTRY & BLOOD GAS ORDER LYNDSEY Final Result Performing Organization Address [facility] Phone Number [facility] [address] [place] [address] * ELECTROLYTES (10/28/2008 19:25 EDT) Sodium 142 [...] ORDER LYNDSEY Final Result Performing Organization Address [facility] Phone Number [facility] [address] [place] [address] * CORTISOL (10/28/2008 19:25 EDT) Cortisol 20 ug/dl [facility] Comment: 7-9a.m.=4.3-22.4 3-5p.m.=3.1-16.7 Blood specimen (specimen) 10/28/2008 19:25 EDT 10/28/2008 19:34 EDT us Christopher Ga MD CHEMISTRY & BLOOD GAS ORDER LYNDSEY Final Result Performing Organization Address [facility]/State/ZIP Co de Phone Number [facility] [address] [place] [address] * TESTOSTERONE (10/28/2008 12:41 EDT) Testosterone, Total 398 241 - 827 ng/dL [facility] Blood specimen (specimen) 10/28/2008 12:41 EDT 10/28/2008 12:44 EDT us Christopher Ga MD CHEMISTRY & BLOOD GAS ORDER LYNDSEY Final Result Performing Organization Address [facility] Co de Phone Number [facility] [address] [place] [address] * (ABNORMAL) SODIUM (10/28/2008 11:55 EDT) Pathologist [facility] Sodium 146(H) 136 - 145 mEq/L [facility] 10/28/2008 11:5 5 EDT 10/28/2008 12:24 EDT us Christopher Ga MD CHEMISTRY & BLOOD GAS ORDER LYNDSEY Final Result Performing Organization Address [facility] de Phone Number [facility] [address] [place] [address] * TESTOSTERONE (10/28/2008 11:55 EDT) Testosterone, Total Wrong tube/speci men type 241 - 827 ng/dL [facility] Blood specimen (specimen) 10/28/2008 11:55 EDT 10/28/2008 12:16 EDT us Christopher Ga MD CHEMISTRY & BLOOD GAS ORDER LYNDSEY Final Result Performing Organization Address [facility] Co de Phone Number [facility] [address] [place] [address] * CORTISOL (10/28/2008 11:55 EDT) Pathologist [facility] Cortisol Wrong tube/speci men type ug/dl [facility] Comment:SPOKE TO ANKITA Blood specimen (specimen) 10/28/2008 11:55 EDT 10/28/2008 12:16 EDT us Christopher Ga MD CHEMISTRY & BLOOD GAS ORDER LYNDSEY Final Result Performing Organization Address [facility] Co de Phone Number [facility] [address] [place] [address] * SODIUM (10/28/2008 11:55 EDT) Sodium Wrong tube/speci men type 136 - 145 mEq/L [facility] Comment:SPOKE TO ANKITA Blood specimen (specimen) 10/28/2008 11:55 EDT 10/28/2008 12:16 EDT us Christopher Ga MD CHEMISTRY & BLOOD GAS ORDER LYNDSEY Final Result Performing Organization Address [facility] de Phone Number [facility] [address] [place] [address] * SODIUM, URINE RANDOM (10/28/2008 11:45 EDT) Sodium, Ur 214.0 mEq/L [facility] Urine specimen (specimen) 10/28/2008 11:45 EDT 10/28/2008 12:14 EDT us Christopher Ga MD URINALYSIS ORDERABLES Final Result Performing Organization Address [facility] de Phone Number [facility] [address] [place] [address] * OSMOLALITY,URINE (10/28/2008 11:45 EDT) Pathologist [facility] Osmolality, Ur 512 392 - 1090 MOS/KG [facility] Urine specimen (specimen) 10/28/2008 11:45 EDT 10/28/2008 12:14 EDT us Christopher Ga MD URINALYSIS ORDERABLES Final Result Performing Organization Address [facility] Co de Phone Number [facility] [address] [place] [address] * SODIUM, URINE RANDOM (10/28/2008 10:13 EDT) Sodium, Ur 58.0 mEq/L [facility] Urine specimen (specimen) 10/28/2008 10:13 EDT 10/28/2008 10:18 EDT us Christopher Ga MD URINALYSIS ORDERABLES Final Result Performing Organization Address [facility] de Phone Number [facility] [address] [place] [address] * (ABNORMAL) OSMOLALITY,URINE (10/28/2008 10:13 EDT) Osmolality, Ur 171(L) 392 - 1090 MOS/KG [facility] Urine specimen (specimen) 10/28/2008 10:13 EDT 10/28/2008 10:18 EDT us Christopher Ga MD URINALYSIS ORDERABLES Final Result Performing Organization Address [facility] de Phone Number [facility] [address] [place] [address] * SODIUM (10/28/2008 10:13 EDT) Pathologist [facility] Sodium 144 136 - 145 mEq/L [facility] Blood specimen (specimen) 10/28/2008 10:13 EDT 10/28/2008 10:18 EDT us Christopher Ga MD CHEMISTRY & BLOOD GAS ORDER LYNDSEY Final Result Performing Organization Address [facility] de Phone Number [facility] [address] [place] [address] * TESTS ADDED BY PHONE (10/28/2008 8:15 EDT) Pathologist [facility] Tests to be added OSM [facility] GARCIA Who Called DR [facility] Location Code M3 [facility] Read Back/Confirmed ? YES [facility] 10/28/2008 8:15 EDT 10/28/2008 8:30 EDT us Christopher Ga MD CHEMISTRY & BLOOD GAS ORDER LYNDSEY Final Result Performing Organization Address [facility] Co de Phone Number [facility] [address] [place] [address] * (ABNORMAL) OSMOLALITY,URINE (10/28/2008 8:15 EDT) Osmolality, Ur 295(L) 392 - 1090 MOS/KG [facility] 10/28/2008 8:15 EDT 10/28/2008 8:30 EDT us Christopher Ga MD URINALYSIS ORDERABLES Final Result Performing Organization Address [facility] Phone Number [facility] [address] [place] [address] * SODIUM, URINE RANDOM (10/28/2008 8:15 EDT) Sodium, Ur 131.0 mEq/L [facility] Urine specimen (specimen) 10/28/2008 8:15 EDT 10/28/2008 8:30 EDT us Christopher Ga MD URINALYSIS ORDERABLES Final Result Performing Organization Address [facility] Phone Number [facility] [address] [place] [address] * (ABNORMAL) ELECTROLYTES (10/28/2008 8:15 EDT) Sodium [...] ORDER LYNDSEY Final Result Performing Organization Address [facility] Co de Phone Number [facility] [address] [place] [address] * (ABNORMAL) ELECTROLYTES (10/28/2008 6:00 EDT) Sodium [...] ORDER LYNDSEY Final Result Performing Organization Address [facility] Phone Number [facility] [address] [place] [address] * (ABNORMAL) CREATININE (10/28/2008 6:00 EDT) Creatinine 0.65(L) 0.7 - 1.5 mg/dl [facility] GFR, Calculated >60 ml/min/1.7 3m2 [facility] 10/28/2008 6:00 EDT 10/28/2008 6:16 EDT us Christopher Ga MD CHEMISTRY & BLOOD GAS ORDER LYNDSEY Final Result Performing Organization Address [facility] de Phone Number [facility] [address] [place] [address] * (ABNORMAL) BUN (10/28/2008 6:00 EDT) BUN 9(L) 10 - 26 mg/dl [facility] 10/28/2008 6:00 EDT 10/28/2008 6:16 EDT us Christopher Ga MD CHEMISTRY & BLOOD GAS ORDER LYNDSEY Final Result Performing Organization Address [facility] de Phone Number [facility] [address] [place] [address] * SODIUM, URINE RANDOM (10/28/2008 6:00 EDT) Sodium, Ur 169.0 mEq/L [facility] Urine specimen (specimen) 10/28/2008 6:00 EDT 10/28/2008 6:15 EDT us Christopher Ga MD URINALYSIS ORDERABLES Final Result Performing Organization Address [facility] Phone Number [facility] [address] [place] [address] * OSMOLALITY,URINE (10/28/2008 6:00 EDT) Osmolality, Ur 397 392 - 1090 MOS/KG [facility] Urine specimen (specimen) 10/28/2008 6:00 EDT 10/28/2008 6:15 EDT us Christopher Ga MD URINALYSIS ORDERABLES Final Result Performing Organization Address [facility] [place] [address] * GLUCOSE, SERUM (10/28/2008 4:00 EDT) Pathologist [facility] Glucose, Serum 74 70 - 100 mg/dl [facility] Blood specimen (specimen) 10/28/2008 4:00 EDT 10/28/2008 4:01 EDT us Christopher Ga MD CHEMISTRY & BLOOD GAS ORDER LYNDSEY Final Result Performing Organization Address [facility] Phone Number [facility] [address] [place] [address] * SODIUM (10/28/2008 4:00 EDT) Sodium 143 136 - 145 mEq/L [facility] Blood specimen (specimen) 10/28/2008 4:00 EDT 10/28/2008 4:01 EDT us Christopher Ga MD CHEMISTRY & BLOOD GAS ORDER LYNDSEY Final Result [facility] [address] [place] [address] * SODIUM, URINE RANDOM (10/28/2008 4:00 EDT) Sodium, Ur 177.0 mEq/L [facility] Urine specimen (specimen) 10/28/2008 4:00 EDT 10/28/2008 4:01 EDT us Christopher Ga MD URINALYSIS ORDERABLES Final Result Performing Organization Address [facility] Co de Phone Number [facility] [address] [place] [address] * OSMOLALITY,URINE (10/28/2008 4:00 EDT) Osmolality, Ur 402 392 - 1090 MOS/KG [facility] Urine specimen (specimen) 10/28/2008 4:00 EDT 10/28/2008 4:01 EDT us Christopher Ga MD URINALYSIS ORDERABLES Final Result Performing Organization Address [facility] Co de Phone Number [facility] [address] [place] [address] * SODIUM, URINE RANDOM (10/28/2008 2:30 EDT) Sodium, Ur 175.0 mEq/L [facility] Urine specimen (specimen) 10/28/2008 2:30 EDT 10/28/2008 2:35 EDT us Christopher Ga MD URINALYSIS ORDERABLES Final Result Performing Organization Address [facility] Co de Phone Number [facility] [address] [place] [address] * OSMOLALITY,URINE (10/28/2008 2:30 EDT) Osmolality, Ur 398 392 - 1090 MOS/KG [facility] Urine specimen (specimen) 10/28/2008 2:30 EDT 10/28/2008 2:35 EDT us Christopher Ga MD URINALYSIS ORDERABLES Final Result Performing Organization Address [facility]/ZIP Co de Phone Number [facility] [address] [place] [address] * SODIUM (10/28/2008 2:00 EDT) Sodium 144 136 - 145 mEq/L [facility] 10/28/2008 2:00 EDT 10/28/2008 2:14 EDT us Christopher Ga MD CHEMISTRY & BLOOD GAS ORDER LYNDSEY Final Result Performing Organization Address [facility] Co de Phone Number [facility] [address] [place] [address] * SODIUM, URINE RANDOM (10/27/2008 20:00 EDT) Sodium, Ur 213.0 mEq/L [facility] Comment:Sample retested, res ult confirmed Urine specimen (specimen) 10/27/2008 20:00 EDT 10/27/2008 20:09 EDT us Christopher Ga MD URINALYSIS ORDERABLES Final Result Performing Organization Address [facility] de Phone Number [facility] [address] [place] [address] * OSMOLALITY,URINE (10/27/2008 20:00 EDT) Osmolality, Ur 544 392 - 1090 MOS/KG [facility] Urine specimen (specimen) 10/27/2008 20:00 EDT 10/27/2008 20:09 EDT us Christopher Ga MD URINALYSIS ORDERABLES Final Result Performing Organization Address [facility] Co de Phone Number [facility] [address] [place] [address] * (ABNORMAL) ELECTROLYTES (10/27/2008 20:00 EDT) Sodium [...] ORDER LYNDSEY Final Result Performing Organization Address [facility] de Phone Number [facility] [address] [place] [address] * CREATININE (10/27/2008 20:00 EDT) Creatinine 0.80 0.7 - 1.5 mg/dl [facility] GFR, Calculated >60 ml/min/1.7 3m2 [facility] Blood specimen (specimen) 10/27/2008 20:00 EDT 10/27/2008 20:09 EDT us Christopher Ga MD CHEMISTRY & BLOOD GAS ORDER LYNDSEY Final Result Performing Organization Address [facility] Phone Number [facility] [address] [place] [address] * BUN (10/27/2008 20:00 EDT) BUN 13 10 - 26 mg/dl [facility] Blood specimen (specimen) 10/27/2008 20:00 EDT 10/27/2008 20:09 EDT us Christopher Ga MD CHEMISTRY & BLOOD GAS ORDER LYNDSEY Final Result Performing Organization Address [facility] de Phone Number [facility] [address] [place] [address] * (ABNORMAL) SODIUM (10/27/2008 14:30 EDT) Sodium 152(H) 136 - 145 mEq/L [facility] Blood specimen (specimen) 10/27/2008 14:30 EDT 10/27/2008 14:47 EDT us Christopher Ga MD CHEMISTRY & BLOOD GAS ORDER LYNDSEY Final Result Performing Organization Address [facility] de Phone Number [facility] [address] [place] [address] * SODIUM, URINE RANDOM (10/27/2008 13:20 EDT) Sodium, Ur 19.0 mEq/L [facility] Urine specimen (specimen) 10/27/2008 13:20 EDT 10/27/2008 13:32 EDT us Christopher Ga MD URINALYSIS ORDERABLES Final Result Performing Organization Address [facility] de Phone Number [facility] [address] [place] [address] * (ABNORMAL) OSMOLALITY,URINE (10/27/2008 13:20 EDT) Osmolality, Ur 116(L) 392 - 1090 MOS/KG [facility] Urine specimen (specimen) 10/27/2008 13:20 EDT 10/27/2008 13:32 EDT us Christopher Ga MD URINALYSIS ORDERABLES Final Result Performing Organization Address [facility] de Phone Number [facility] [address] [place] [address] * SODIUM, URINE RANDOM (10/27/2008 12:23 EDT) Sodium, Ur 107.0 mEq/L [facility] Urine specimen (specimen) 10/27/2008 12:23 EDT 10/27/2008 12:23 EDT us Christopher Ga MD URINALYSIS ORDERABLES Final Result Performing Organization Address [facility] de Phone Number [facility] [address] [place] [address] * OSMOLALITY,URINE (10/27/2008 12:23 EDT) Osmolality, Ur 808 392 - 1090 MOS/KG [facility] Urine specimen (specimen) 10/27/2008 12:23 EDT 10/27/2008 12:23 EDT Christopher Ga MD URINALYSIS ORDERABLES Final Result Performing Organization Address [facility] Phone Number [facility] [address] [place] [address] * (ABNORMAL) SODIUM (10/27/2008 12:21 EDT) Sodium 150(H) 136 - 145 mEq/L [facility] Blood specimen (specimen) 10/27/2008 12:21 EDT 10/27/2008 12:21 EDT Christopher Ga MD CHEMISTRY & BLOOD GAS ORDER LYNDSEY Final Result Performing Organization Address [facility] Phone Number [facility] [address] [place] [address] * (ABNORMAL) SODIUM (10/27/2008 9:40 EDT) Sodium 151(H) 136 - 145 mEq/L [facility] Blood specimen (specimen) 10/27/2008 9:40 EDT 10/27/2008 9:59 EDT Christopher Ga MD CHEMISTRY & BLOOD GAS ORDER LYNDSEY Final Result Performing Organization Address [facility] de Phone Number [facility] [address] [place] [address] * (ABNORMAL) SODIUM (10/27/2008 6:50 EDT) Sodium 152(H) 136 - 145 mEq/L [facility] Comment:Sample retested, res ult confirmed Blood specimen (specimen) 10/27/2008 6:50 EDT 10/27/2008 6:52 EDT us Christopher Ga MD CHEMISTRY & BLOOD GAS ORDER LYNDSEY Final Result Performing Organization Address [facility] de Phone Number [facility] [address] [place] [address] * (ABNORMAL) SODIUM (10/27/2008 6:15 EDT) Sodium 124(LL) 136 - 145 mEq/L [facility] Comment: Sample retested, result confirmed Question specimen contaminated. Repeat Requested Blood specimen (specimen) 10/27/2008 6:15 EDT 10/27/2008 6:16 EDT us Christopher Ga MD CHEMISTRY & BLOOD GAS ORDER LYNDSEY Final Result Performing Organization Address [facility] Phone Number [facility] [address] [place] [address] * GLUCOSE, SERUM (10/27/2008 4:30 EDT) Glucose, Serum 86 70 - 100 mg/dl [facility] 10/27/2008 4:30 EDT 10/27/2008 4:34 EDT us Christopher Ga MD CHEMISTRY & BLOOD GAS ORDER LYNDSEY Final Result Performing Organization Address [facility] Phone Number [facility] [address] [place] [address] * (ABNORMAL) ELECTROLYTES (10/27/2008 4:30 EDT) Sodium [...] ORDER LYNDSEY Final Result Performing Organization Address [facility]/State/ZIP Co de Phone Number [facility] [address] [place] [address] * CREATININE (10/27/2008 4:30 EDT) Pathologist [facility] Creatinine 0.83 0.7 - 1.5 mg/dl [facility] GFR, Calculated >60 ml/min/1.7 3m2 [facility] Blood specimen (specimen) 10/27/2008 4:30 EDT 10/27/2008 4:34 EDT us Christopher Ga MD CHEMISTRY & BLOOD GAS ORDER LYNDSEY Final Result Performing Organization Address [facility] de Phone Number [facility] [address] [place] [address] * BUN (10/27/2008 4:30 EDT) BUN 14 10 - 26 mg/dl [facility] Blood specimen (specimen) 10/27/2008 4:30 EDT 10/27/2008 4:34 EDT us Christopher Ga MD CHEMISTRY & BLOOD GAS ORDER LYNDSEY Final Result Performing Organization Address [facility] Phone Number [facility] [address] [place] [address] * (ABNORMAL) SODIUM (10/27/2008 1:30 EDT) Pathologist [facility] Sodium 159(HH) 136 - 145 mEq/L [facility] Comment:Sample retested, res ult confirmed Blood specimen (specimen) 10/27/2008 1:30 EDT 10/27/2008 1:41 EDT Christopher Ga MD CHEMISTRY & BLOOD GAS ORDER LYNDSEY Final Result Performing Organization Address [facility] de Phone Number [facility] [address] [place] [address] * SODIUM, URINE RANDOM (10/27/2008 0:15 EDT) Pathologist [facility] Sodium, Ur 40.0 mEq/L [facility] Urine specimen (specimen) 10/27/2008 0:15 EDT 10/27/2008 0:19 EDT us Christopher Ga MD URINALYSIS ORDERABLES Final Result Performing Organization Address [facility] de Phone Number [facility] [address] [place] [address] * (ABNORMAL) OSMOLALITY,URINE (10/27/2008 0:15 EDT) Osmolality, Ur 201(L) 392 - 1090 MOS/KG [facility] Urine specimen (specimen) 10/27/2008 0:15 EDT 10/27/2008 0:19 EDT us Christopher Ga MD URINALYSIS ORDERABLES Final Result Performing Organization Address [facility] de Phone Number [facility] [address] [place] [address] * (ABNORMAL) SODIUM (10/26/2008 22:48 EDT) Sodium 161(HH) 136 - 145 mEq/L [facility] Comment:Sample retested, res ult confirmed Blood specimen (specimen) 10/26/2008 22:48 EDT 10/26/2008 23:00 EDT us Christopher Ga MD CHEMISTRY & BLOOD GAS ORDER LYNDSEY Final Result Performing Organization Address [facility] de Phone Number [facility] [address] [place] [address] * CORTISOL (10/26/2008 18:41 EDT) Cortisol 23 ug/dl [facility] Comment: 7-9a.m.=4.3-22.4 3-5p.m.=3.1-16.7 10/26/2008 18:4 1 EDT 10/26/2008 18:41 EDT us Christopher Ga MD CHEMISTRY & BLOOD GAS ORDER LYNDSEY Final Result Performing Organization Address [facility] Co de Phone Number [facility] [address] [place] [address] * (ABNORMAL) SODIUM (10/26/2008 18:41 EDT) Sodium 154(H) 136 - 145 mEq/L [facility] Blood specimen (specimen) 10/26/2008 18:41 EDT 10/26/2008 18:41 EDT us Christopher Ga MD CHEMISTRY & BLOOD GAS ORDER LYNDSEY Final Result Performing Organization Address [facility] de Phone Number [facility] [address] [place] [address] * (ABNORMAL) SODIUM (10/26/2008 9:59 EDT) Sodium 148(H) 136 - 145 mEq/L [facility] Blood specimen (specimen) 10/26/2008 9:59 EDT 10/26/2008 10:02 EDT us Christopher Ga MD CHEMISTRY & BLOOD GAS ORDER LYNDSEY Final Result Performing Organization Address [facility] de Phone Number [facility] [address] [place] [address] * CORTISOL (10/26/2008 6:12 EDT) Pathologist [facility] Cortisol 13 ug/dl [facility] Comment: 7-9a.m.=4.3-22.4 3-5p.m.=3.1-16.7 10/26/2008 6:12 EDT 10/26/2008 6:24 EDT us Christopher Ga MD CHEMISTRY & BLOOD GAS ORDER LYNDSEY Final Result Performing Organization Address [facility] de Phone Number [facility] [address] [place] [address] * TESTS ADDED BY PHONE (10/26/2008 6:12 EDT) Tests to be added STAT [facility] Who Called TAMIE M3 FOR DR CHARLEEN GARCIA Location Code M3 TRUE [facility] Read Back/Confirmed ? YES [facility] 10/26/2008 6:12 EDT 10/26/2008 6:24 EDT us Christopher Ga MD CHEMISTRY & BLOOD GAS ORDER LYNDSEY Final Result [facility] [address] [place] [address] * (ABNORMAL) HEMAGRAM AND DIFFERENTIAL (10/26/2008 6:12 [...] LAB Monocytes 4.7 1.8 - 12.0 % [facility] Eosinophils 0.3(L) 0.6 - 6.9 [...] ORDERA BLES Final Result Performing Organization Address [facility] Phone Number [facility] [address] [place] [address] * GLUCOSE, SERUM (10/26/2008 6:12 EDT) Pathologist [facility] Glucose, Serum 71 70 - 100 mg/dl [facility] Blood specimen (specimen) 10/26/2008 6:12 EDT 10/26/2008 6:24 EDT us Christopher Ga MD CHEMISTRY & BLOOD GAS ORDER LYNDSEY Final Result Performing Organization Address [facility] Phone Number [facility] [address] [place] [address] * (ABNORMAL) ELECTROLYTES (10/26/2008 6:12 EDT) Pathologist [facility] Sodium 148(H) 136 - 145 mEq/L [facility] Potassium 3.6 3.5 - 5.0 mEq/L [facility] Chloride 113(H) 96 - 110 mEq/L [facility] CO2 29 24 - 32 mEq/L [facility] Blood specimen (specimen) 10/26/2008 6:12 EDT 10/26/2008 6:24 EDT us Christopher Ga MD CHEMISTRY & BLOOD GAS ORDER LYNDSEY Final Result Performing Organization Address [facility] Phone Number [facility] [address] [place] [address] * CREATININE (10/26/2008 6:12 EDT) Creatinine 0.90 0.7 - 1.5 mg/dl [facility] GFR, Calculated >60 ml/min/1.7 3m2 [facility] Blood specimen (specimen) 10/26/2008 6:12 EDT 10/26/2008 6:24 EDT us Christopher Ga MD CHEMISTRY & BLOOD GAS ORDER LYNDSEY Final Result Performing Organization Address [facility] de Phone Number [facility] [address] [place] [address] * BUN (10/26/2008 6:12 EDT) BUN 20 10 - 26 mg/dl [facility] Blood specimen (specimen) 10/26/2008 6:12 EDT 10/26/2008 6:24 EDT us Christopher Ga MD CHEMISTRY & BLOOD GAS ORDER LYNDSEY Final Result Performing Organization Address [facility] Phone Number [facility] [address] [place] [address] * GLUCOSE, SERUM (10/26/2008 1:57 EDT) Glucose, Serum 71 70 - 100 mg/dl [facility] Blood specimen (specimen) 10/26/2008 1:57 EDT 10/26/2008 2:01 EDT us Christopher Ga MD CHEMISTRY & BLOOD GAS ORDER LYNDSEY Final Result Performing Organization Address [facility] de Phone Number [facility] [address] [place] [address] * (ABNORMAL) SODIUM (10/26/2008 1:57 EDT) Sodium 148(H) 136 - 145 mEq/L [facility] Blood specimen (specimen) 10/26/2008 1:57 EDT 10/26/2008 2:01 EDT Christopher Ga MD CHEMISTRY & BLOOD GAS ORDER LYNDSEY Final Result Performing Organization Address [facility] Co de Phone Number [facility] [address] [place] [address] * (ABNORMAL) SODIUM (10/25/2008 22:00 EDT) Sodium 147(H) 136 - 145 mEq/L [facility] Blood specimen (specimen) 10/25/2008 22:00 EDT 10/25/2008 22:08 EDT us Christopher Ga MD CHEMISTRY & BLOOD GAS ORDER LYNDSEY Final Result Performing Organization Address [facility] de Phone Number [facility] [address] [place] [address] * GLUCOSE, GLUCOMETER (10/25/2008 20:59 EDT) Glucose, Fingerstick 93 70 - 100 mg/dl [facility] Cardiovascular Surgical Tech ID [id number] Test Performed by Nursing Services [facility] 10/25/2008 20:5 9 EDT 10/25/2008 23:05 EDT us Christopher Ga MD CHEMISTRY & BLOOD GAS ORDER LYNDSEY Final Result Performing Organization Address [facility] de Phone Number [facility] [address] [place] [address] * HOLD GREEN TOP (10/25/2008 20:05 EDT) Hold Green Top Hold for further testing. Specimen will be held for 5 days. [facility] 10/25/2008 20:0 5 EDT 10/25/2008 20:18 EDT us Christopher Ga MD LAB INFO SERVICE AND SUPPOR T & PHONE RESULT Final Result Performing Organization Address [facility] Co de Phone Number [facility] [address] [place] [address] * GLUCOSE, SERUM (10/25/2008 20:05 EDT) Glucose, Serum 73 70 - 100 mg/dl [facility] Blood specimen (specimen) 10/25/2008 20:05 EDT 10/25/2008 20:18 EDT us Christopher Ga MD CHEMISTRY & BLOOD GAS ORDER LYNDSEY Final Result Performing Organization Address [facility] de Phone Number [facility] [address] [place] [address] * (ABNORMAL) ELECTROLYTES (10/25/2008 20:05 EDT) Sodium [...] ORDER LYNDSEY Final Result Performing Organization Address [facility] de Phone Number [facility] [address] [place] [address] * CREATININE (10/25/2008 20:05 EDT) Pathologist [facility] Creatinine 0.80 0.7 - 1.5 mg/dl [facility] GFR, Calculated >60 ml/min/1.7 3m2 [facility] Blood specimen (specimen) 10/25/2008 20:05 EDT 10/25/2008 20:18 EDT us Christopher Ga MD CHEMISTRY & BLOOD GAS ORDER LYNDSEY Final Result Performing Organization Address [facility] de Phone Number [facility] [address] [place] [address] * BUN (10/25/2008 20:05 EDT) BUN 16 10 - 26 mg/dl [facility] Blood specimen (specimen) 10/25/2008 20:05 EDT 10/25/2008 20:18 EDT us Christopher Ga MD CHEMISTRY & BLOOD GAS ORDER LYNDSEY Final Result Performing Organization Address [facility] de Phone Number [facility] [address] [place] [address] * (ABNORMAL) SODIUM (10/25/2008 18:00 EDT) Sodium 148(H) 136 - 145 mEq/L [facility] Blood specimen (specimen) 10/25/2008 18:00 EDT 10/25/2008 18:02 EDT us Christopher Ga MD CHEMISTRY & BLOOD GAS ORDER LYNDSEY Final Result Performing Organization Address [facility] Phone Number [facility] [address] [place] [address] * (ABNORMAL) SODIUM (10/25/2008 16:00 EDT) Sodium 148(H) 136 - 145 mEq/L [facility] Blood specimen (specimen) 10/25/2008 16:00 EDT 10/25/2008 16:24 EDT us Christopher Ga MD CHEMISTRY & BLOOD GAS ORDER LYNDSEY Final Result Performing Organization Address [facility] Phone Number [facility] [address] [place] [address] * PORTABLE CHEST 1 VIEW (10/25/2008 12:50 [...] Christopher Ga MD [facility] Final Result * GLUCOSE, SERUM (10/25/2008 12:45 EDT) Glucose, Serum 83 70 - 100 mg/dl [facility] 10/25/2008 12:4 5 EDT 10/25/2008 12:56 EDT us Christopher Ga MD CHEMISTRY & BLOOD GAS ORDER LYNDSEY Final Result [facility] [address] [place] [address] * (ABNORMAL) SODIUM (10/25/2008 12:45 EDT) Sodium 148(H) 136 - 145 mEq/L [facility] Blood specimen (specimen) 10/25/2008 12:45 EDT 10/25/2008 12:56 EDT us Christopher Ga MD CHEMISTRY & BLOOD GAS ORDER LYNDSEY Final Result Performing Organization Address [facility] Phone Number [facility] [address] [place] [address] * (ABNORMAL) SODIUM (10/25/2008 10:00 EDT) Sodium 146(H) 136 - 145 mEq/L [facility] Blood specimen (specimen) 10/25/2008 10:00 EDT 10/25/2008 10:07 EDT us Christopher Ga MD CHEMISTRY & BLOOD GAS ORDER LYNDSEY Final Result Performing Organization Address [facility] Phone Number [facility] [address] [place] [address] * OSMOLALITY,URINE (10/25/2008 8:06 EDT) Osmolality, Ur 513 392 - 1090 MOS/KG [facility] 10/25/2008 8:06 EDT 10/25/2008 8:06 EDT us Christopher Ga MD URINALYSIS ORDERABLES Final Result Performing Organization Address [facility] Phone Number [facility] [address] [place] [address] * SODIUM, URINE RANDOM (10/25/2008 8:06 EDT) Sodium, Ur <5.0 mEq/L [facility] 10/25/2008 8:06 EDT 10/25/2008 8:06 EDT us Christopher Ga MD URINALYSIS ORDERABLES Final Result Performing Organization Address [facility] de Phone Number [facility] [address] [place] [address] * (ABNORMAL) OSMOLALITY (10/25/2008 8:04 EDT) Osmolality Cintia 310(H) 280 - 300 MOS/KG [facility] Blood specimen (specimen) 10/25/2008 8:04 EDT 10/25/2008 8:04 EDT us Christopher Ga MD CHEMISTRY & BLOOD GAS ORDER LYNDSEY Final Result Performing Organization Address [facility] de Phone Number [facility] [address] [place] [address] * GLUCOSE, SERUM (10/25/2008 8:04 EDT) Pathologist [facility] Glucose, Serum 80 70 - 100 mg/dl [facility] Blood specimen (specimen) 10/25/2008 8:04 EDT 10/25/2008 8:04 EDT us Christopher Ga MD CHEMISTRY & BLOOD GAS ORDER LYNDSEY Final Result Performing Organization Address [facility] Phone Number [facility] [address] [place] [address] * (ABNORMAL) ELECTROLYTES (10/25/2008 8:04 EDT) Pathologist [facility] Sodium 148(H) 136 - 145 mEq/L [facility] Potassium 3.8 3.5 - 5.0 mEq/L [facility] Chloride 114(H) 96 - 110 mEq/L [facility] CO2 27 24 - 32 mEq/L [facility] Blood specimen (specimen) 10/25/2008 8:04 EDT 10/25/2008 8:04 EDT us Christopher Ga MD CHEMISTRY & BLOOD GAS ORDER LYNDSEY Final Result Performing Organization Address [facility] de Phone Number [facility] [address] [place] [address] * (ABNORMAL) GLUCOSE, SERUM (10/25/2008 4:49 EDT) Pathologist [facility] Glucose, Serum 101(H) 70 - 100 mg/dl [facility] 10/25/2008 4:49 EDT 10/25/2008 4:49 EDT us Christopher Ga MD CHEMISTRY & BLOOD GAS ORDER LYNDSEY Final Result Performing Organization Address [facility] de Phone Number [facility] [address] [place] [address] * POTASSIUM (10/25/2008 4:49 EDT) Potassium 3.7 3.5 - 5.0 mEq/L [facility] 10/25/2008 4:49 EDT 10/25/2008 4:49 EDT us Christopher Ga MD CHEMISTRY & BLOOD GAS ORDER LYNDSEY Final Result Performing Organization Address [facility] Phone Number [facility] [address] [place] [address] * CO2 (10/25/2008 4:49 EDT) CO2 25 24 - 32 mEq/L [facility] 10/25/2008 4:49 EDT 10/25/2008 4:49 EDT us Christopher Ga MD CHEMISTRY & BLOOD GAS ORDER LYNSDEY Final Result Performing Organization Address [facility] de Phone Number [facility] [address] [place] [address] * (ABNORMAL) CHLORIDE (10/25/2008 4:49 EDT) Chloride 115(H) 96 - 110 mEq/L [facility] 10/25/2008 4:49 EDT 10/25/2008 4:49 EDT us Christopher Ga MD CHEMISTRY & BLOOD GAS ORDER LYNDSEY Final Result Performing Organization Address [facility] de Phone Number [facility] [address] [place] [address] * (ABNORMAL) OSMOLALITY (10/25/2008 4:49 EDT) Osmolality Cintia 309(H) 280 - 300 MOS/KG [facility] 10/25/2008 4:49 EDT 10/25/2008 4:49 EDT us Christopher Ga MD CHEMISTRY & BLOOD GAS ORDER LYNDSEY Final Result Performing Organization Address [facility] Phone Number [facility] [address] [place] [address] * (ABNORMAL) SODIUM (10/25/2008 4:49 EDT) Sodium 148(H) 136 - 145 mEq/L [facility] 10/25/2008 4:49 EDT 10/25/2008 4:49 EDT us Christopher Ga MD CHEMISTRY & BLOOD GAS ORDER LYNDSEY Final Result Performing Organization Address [facility] Phone Number [facility] [address] [place] [address] * (ABNORMAL) CREATININE (10/25/2008 4:49 EDT) Pathologist [facility] Creatinine 0.69(L) 0.7 - 1.5 mg/dl [facility] GFR, Calculated >60 ml/min/1.7 3m2 [facility] 10/25/2008 4:49 EDT 10/25/2008 4:49 EDT us Christopher Ga MD CHEMISTRY & BLOOD GAS ORDER LYNDSEY Final Result Performing Organization Address [facility] de Phone Number [facility] [address] [place] [address] * BUN (10/25/2008 4:49 EDT) BUN 10 10 - 26 mg/dl [facility] 10/25/2008 4:49 EDT 10/25/2008 4:49 EDT us Christopher Ga MD CHEMISTRY & BLOOD GAS ORDER LYNDSEY Final Result Performing Organization Address [facility] de Phone Number [facility] [address] [place] [address] * (ABNORMAL) OSMOLALITY,URINE (10/25/2008 3:59 EDT) Osmolality, Ur 143(L) 392 - 1090 MOS/KG [facility] 10/25/2008 3:59 EDT 10/25/2008 3:59 EDT us Christopher Ga MD URINALYSIS ORDERABLES Final Result Performing Organization Address [facility] de Phone Number [facility] [address] [place] [address] * SODIUM, URINE RANDOM (10/25/2008 3:59 EDT) Sodium, Ur <5.0 mEq/L [facility] 10/25/2008 3:59 EDT 10/25/2008 3:59 EDT us Christopher Ga MD URINALYSIS ORDERABLES Final Result Performing Organization Address [facility] de Phone Number [facility] [address] [place] [address] * OSMOLALITY,URINE (10/25/2008 0:15 EDT) Osmolality, Ur 413 392 - 1090 MOS/KG [facility] 10/25/2008 0:15 EDT 10/25/2008 0:15 EDT us Christopher Ga MD URINALYSIS ORDERABLES Final Result Performing Organization Address [facility] de Phone Number [facility] [address] [place] [address] * SODIUM, URINE RANDOM (10/25/2008 0:15 EDT) Sodium, Ur 9.0 mEq/L [facility] 10/25/2008 0:15 EDT 10/25/2008 0:15 EDT us Christopher Ga MD URINALYSIS ORDERABLES Final Result Performing Organization Address [facility] Phone Number [facility] [address] [place] [address] * (ABNORMAL) GLUCOSE, SERUM (10/25/2008 0:15 EDT) Glucose, Serum 113(H) 70 - 100 mg/dl [facility] 10/25/2008 0:15 EDT 10/25/2008 0:15 EDT us Christopher Ga MD CHEMISTRY & BLOOD GAS ORDER LYNDSEY Final Result Performing Organization Address [facility] Phone Number [facility] [address] [place] [address] * (ABNORMAL) OSMOLALITY (10/25/2008 0:15 EDT) Osmolality Cintia 309(H) 280 - 300 MOS/KG [facility] 10/25/2008 0:15 EDT 10/25/2008 0:15 EDT us Christopher Ga MD CHEMISTRY & BLOOD GAS ORDER LYNDSEY Final Result Performing Organization Address [facility] Phone Number [facility] [address] [place] [address] * (ABNORMAL) ELECTROLYTES (10/25/2008 0:15 EDT) Sodium 147(H) 136 - 145 mEq/L [facility] Potassium 3.9 3.5 - 5.0 mEq/L [facility] Chloride 115(H) 96 - 110 mEq/L [facility] CO2 24 24 - 32 mEq/L [facility] 10/25/2008 0:15 EDT 10/25/2008 0:15 EDT us Christopher Ga MD CHEMISTRY & BLOOD GAS ORDER LYNDSEY Final Result Performing Organization Address [facility] Phone Number [facility] [address] [place] [address] * SODIUM, URINE RANDOM (10/24/2008 20:00 EDT) Sodium, Ur 92.0 mEq/L [facility] 10/24/2008 20:0 0 EDT 10/24/2008 20:23 EDT us Christopher Ga MD URINALYSIS ORDERABLES Final Result Performing Organization Address [facility] de Phone Number [facility] [address] [place] [address] * OSMOLALITY,URINE (10/24/2008 20:00 EDT) Osmolality, Ur 594 392 - 1090 MOS/KG [facility] 10/24/2008 20:0 0 EDT 10/24/2008 20:23 EDT us Christopher Ga MD URINALYSIS ORDERABLES Final Result Performing Organization Address [facility] Phone Number [facility] [address] [place] [address] * (ABNORMAL) OSMOLALITY (10/24/2008 20:00 EDT) Osmolality Cintia 319(H) 280 - 300 MOS/KG [facility] 10/24/2008 20:0 0 EDT 10/24/2008 20:20 EDT Christopher Ga MD CHEMISTRY & BLOOD GAS ORDER LYNDSEY Final Result Performing Organization Address [facility] de Phone Number [facility] [address] [place] [address] * SODIUM, URINE RANDOM (10/23/2008 22:30 EDT) Sodium, Ur 70.0 mEq/L [facility] Comment:Sample retested, res ult confirmed 10/23/2008 22:3 0 EDT 10/23/2008 22:33 EDT us Christopher Ga MD URINALYSIS ORDERABLES Final Result Performing Organization Address [facility] de Phone Number [facility] [address] [place] [address] * OSMOLALITY, URINE (10/23/2008 22:30 EDT) Osmolality, Ur 426 392 - 1090 MOS/KG [facility] 10/23/2008 22:3 0 EDT 10/23/2008 22:33 EDT us Christopher Ga MD URINALYSIS ORDERABLES Final Result Performing Organization Address [facility] de Phone Number [facility] [address] [place] [address] * (ABNORMAL) URINALYSIS, CHEMICAL (10/23/2008 22:30 EDT) Color, UA Yellow [facility] Clarity, UA Clear [facility] Glucose, UA Norm NORM [facility] Bilirubin, UA Neg NEG [facility] Ketones, UA Neg NEG [facility] Specific Serafina, Urine 1.015 1.005 - 1.02 [facility] [...] URINALYSIS ORDERABLES Final Result Performing Organization Address [facility] de Phone Number [facility] [address] [place] [address] * URINE MICROSCOPIC (10/23/2008 22:30 EDT) WBC, [...] URINALYSIS ORDERABLES Final Result Performing Organization Address [facility] de Phone Number [facility] [address] [place] [address] * (ABNORMAL) POTASSIUM (10/23/2008 20:49 EDT) Potassium 6.1(HH) 3.5 - 5.0 mEq/L [facility] Comment: Hemolysis may elevate potassium result. Slight hemolysis QNS to repeat 10/23/2008 20:4 9 EDT 10/23/2008 20:54 EDT us Christopher Ga MD CHEMISTRY & BLOOD GAS ORDER LYNDSEY Final Result Performing Organization Address [facility] de Phone Number [facility] [address] [place] [address] * CREATININE (10/23/2008 20:49 EDT) Creatinine 0.80 0.7 - 1.5 mg/dl [facility] Comment:Slight hemolysis GFR, Calculated >60 ml/min/1.7 3m2 [facility] Comment:Slight hemolysis 10/23/2008 20:4 9 EDT 10/23/2008 20:54 EDT us Christopher Ga MD CHEMISTRY & BLOOD GAS ORDER LYNDSEY Final Result Performing Organization Address [facility] Co de Phone Number [facility] [address] [place] [address] * BUN (10/23/2008 20:49 EDT) Pathologist [facility] BUN 13 10 - 26 mg/dl [facility] Comment: Results may be affected due to hemolysis. Slight hemolysis 10/23/2008 20:4 9 EDT 10/23/2008 20:54 EDT us Christopher Ga MD CHEMISTRY & BLOOD GAS ORDER LYNDSEY Final Result Performing Organization Address [facility] de Phone Number [facility] [address] [place] [address] * (ABNORMAL) SODIUM (10/23/2008 20:49 EDT) [facility] Sodium 153(H) 136 - 145 mEq/L [facility] Comment:Slight hemolysis 10/23/2008 20:4 9 EDT 10/23/2008 20:54 EDT us Christopher Ga MD CHEMISTRY & BLOOD GAS ORDER LYNDSEY Final Result Performing Organization Address [facility] de Phone Number [facility] [address] [place] [address] * (ABNORMAL) ELECTROLYTES (10/23/2008 16:00 EDT) [facility] Sodium 150(H) 136 - 145 mEq/L [facility] Potassium 4.0 3.5 - 5.0 mEq/L [facility] Chloride 117(H) 96 - 110 mEq/L [facility] CO2 22(L) 24 - 32 mEq/L [facility] 10/23/2008 16:0 0 EDT 10/23/2008 16:07 EDT us Christopher Ga MD CHEMISTRY & BLOOD GAS ORDER LYNDSEY Final Result Performing Organization Address [facility] de Phone Number [facility] [address] [place] [address] * GLUCOSE, SERUM (10/23/2008 8:45 EDT) [facility] Glucose, Serum 79 70 - 100 mg/dl [facility] 10/23/2008 8:45 EDT 10/23/2008 9:01 EDT us Thad Marroquin MD MSc CHEMISTRY & BLOOD GAS ORDER LYNDSEY Final Result Performing Organization Address [facility] de Phone Number [facility] [address] [place] [address] * CREATININE (10/23/2008 8:45 EDT) Pathologist [facility] Creatinine 0.80 0.7 - 1.5 mg/dl [facility] GFR, Calculated >60 ml/min/1.7 3m2 [facility] 10/23/2008 8:45 EDT 10/23/2008 9:01 EDT Thad Marroquin MD, MSc CHEMISTRY & BLOOD GAS ORDER LYNDSEY Final Result Performing Organization Address [facility] de Phone Number [facility] [address] [place] [address] * BUN (10/23/2008 8:45 EDT) Pathologist [facility] BUN 10 10 - 26 mg/dl [facility] 10/23/2008 8:45 EDT 10/23/2008 9:01 EDT us Thad Marroquin MD, MSc CHEMISTRY & BLOOD GAS ORDER LYNDSEY Final Result Performing Organization Address [facility] de Phone Number [facility] [address] [place] [address] * (ABNORMAL) ELECTROLYTES (10/23/2008 8:45 EDT) Pathologist [facility] Sodium 148(H) 136 - 145 mEq/L [facility] Potassium 3.4(L) 3.5 - 5.0 mEq/L [facility] Chloride 117(H) 96 - 110 mEq/L [facility] CO2 22(L) 24 - 32 mEq/L [facility] 10/23/2008 8:45 EDT 10/23/2008 9:01 EDT us Thad Marroquin MD MSc CHEMISTRY & BLOOD GAS ORDER LYNDSEY Final Result [facility] [address] [place] [address] * (ABNORMAL) HEMAGRAM AND DIFFERENTIAL (10/23/2008 8:45 [...] ORDERA BLES Final Result Performing Organization Address [facility] Co de Phone Number [facility] [address] [place] [address] * GLUCOSE, SERUM (10/23/2008 6:15 EDT) Glucose, Serum 80 70 - 100 mg/dl [facility] 10/23/2008 6:15 EDT 10/23/2008 6:35 EDT us Thad Marroquin MD, MSc CHEMISTRY & BLOOD GAS ORDER LYNDSEY Final Result Performing Organization Address [facility] de Phone Number [facility] [address] [place] [address] * CREATININE (10/23/2008 6:15 EDT) Creatinine 0.80 0.7 - 1.5 mg/dl [facility] GFR, Calculated >60 ml/min/1.7 3m2 [facility] 10/23/2008 6:15 EDT 10/23/2008 6:35 EDT us Thad Marroquin MD, MSc CHEMISTRY & BLOOD GAS ORDER LYNDSEY Final Result Performing Organization Address [facility] Co de Phone Number [facility] [address] [place] [address] * BUN (10/23/2008 6:15 EDT) BUN 11 10 - 26 mg/dl [facility] 10/23/2008 6:15 EDT 10/23/2008 6:35 EDT us Thad Marroquin MD, MSc CHEMISTRY & BLOOD GAS ORDER LYNDSEY Final Result Performing Organization Address [facility] Co de Phone Number [facility] [address] [place] [address] * (ABNORMAL) ELECTROLYTES (10/23/2008 6:15 EDT) Sodium [...] LYNDSEY Final Result [facility] [address] [place] [address] * (ABNORMAL) HEMAGRAM AND DIFFERENTIAL (10/23/2008 6:15 EDT) Pathologist [facility] WBC 1.91(L) 4.0 - 10.4 K/cmm [facility] RBC 4.16(L) 4.36 - 5.78 M/cmm [facility] Hemoglobin 10.7(L) 13.8 - 17.3 gm/dl [facility] HCT 31.3(L) 39.5 - 50.2 % [facility] MCV 75(L) 81 - 95 fl [facility] MCH 25.8(L) 27.6 - 33.0 pg [facility] MCHC 34.4 32.8 - 36.4 gm/dl [...] ORDERA BLES Final Result Performing Organization Address [facility] Co de Phone Number [facility] [address] [place] [address] * GLUCOSE, GLUCOMETER (10/23/2008 6:02 EDT) Glucose, Fingerstick 89 70 - 100 mg/dl [facility] Cardiovascular Surgical Tech ID [id number] Test Performed by Nursing Services [facility] 10/23/2008 6:02 EDT 10/25/2008 4:28 EDT us Christopher Ga MD CHEMISTRY & BLOOD GAS ORDER LYNDSEY Final Result Performing Organization Address [facility] de Phone Number [facility] [address] [place] [address] * (ABNORMAL) BLOOD GAS, G3 ISTAT (10/23/2008 [...] [facility] Sample Type VENOUS [facility] sales expert home theater ID [id number] Test Performed by Respiratory For non-arterial reference ranges, please see ISTAT procedure. [facility] 10/23/2008 5:49 EDT 10/23/2008 5:58 EDT us Thad Marroquin MD, MSc CHEMISTRY & BLOOD GAS ORDER LYNDSEY Final Result Performing Organization Address [facility] de Phone Number [facility] [address] [place] [address] * (ABNORMAL) BLOOD GAS, G3 ISTAT (10/23/2008 [...] LAB Sample Type NOT GIVEN [facility] [place] [id number] Test performed by Chemistry [facility] 10/23/2008 2:13 EDT 10/23/2008 2:19 EDT Result Devorah Marroquin MD, MSc CHEMISTRY & BLOOD GAS ORDER LYNDSEY Final Result Performing Organization Address [facility] de Phone Number [facility] [address] [place] [address] * (ABNORMAL) ELECTROLYTES (10/23/2008 2:00 EDT) Sodium [...] ORDER LYNDSEY Final Result Performing Organization Address [facility] Co de Phone Number [facility] [address] [place] [address] * ELECTROLYTES (10/23/2008 2:00 EDT) 10/23/2008 2:00 EDT 10/23/2008 2:07 EDT us Thad Marroquin MD MSc CHEMISTRY & BLOOD GAS ORDER LYNDSEY Final Result Performing Organization Address [facility] de Phone Number [facility] [address] [place] [address] * BACTERIAL CULTURE, BLOOD (10/23/2008 2:00 EDT) Specimen Description Blood Right Arm Total volume of blood collected: 6 ml Pediatric bottle received Volume of blood collected may not be adequate for detection of bacteremia/se pticemia. [facility] Result No growth [facility] Report Status Final [id number] [facility] 10/23/2008 2:00 EDT 10/23/2008 7:45 EDT us Thad Marroquin MD MSc MICROBIOLOGY - [facility] Final Result Performing Organization Address [facility] de Phone Number [facility] [address] [place] [address] * (ABNORMAL) GLUCOSE, GLUCOMETER (10/22/2008 21:12 EDT) Glucose, Fingerstick 122(H) 70 - 100 mg/dl [facility] Cardiovascular Surgical Tech ID [id number] Test Performed by Nursing Services [facility] 10/22/2008 21:1 2 EDT 10/22/2008 21:23 EDT us Christopher Ga MD CHEMISTRY & BLOOD GAS ORDER LYNDSEY Final Result Performing Organization Address [facility] de Phone Number [facility] [address] [place] [address] * (ABNORMAL) GLUCOSE, SERUM (10/22/2008 18:07 EDT) Glucose, Serum 109(H) 70 - 100 mg/dl [facility] 10/22/2008 18:0 7 EDT 10/22/2008 18:07 EDT us Christopher Ga MD CHEMISTRY & BLOOD GAS ORDER LYNDSEY Final Result Performing Organization Address [facility] de Phone Number [facility] [address] [place] [address] * ELECTROLYTES (10/22/2008 18:07 EDT) Sodium 141 136 - 145 mEq/L [facility] Potassium 3.7 3.5 - 5.0 mEq/L [facility] Chloride 108 96 - 110 mEq/L [facility] CO2 24 24 - 32 mEq/L [facility] 10/22/2008 18:0 7 EDT 10/22/2008 18:07 EDT us Christopher Ga MD CHEMISTRY & BLOOD GAS ORDER LYNDSEY Final Result Performing Organization Address [facility] de Phone Number [facility] [address] [place] [address] * (ABNORMAL) ELECTROLYTES (10/22/2008 11:15 EDT) Sodium [...] ORDER LYNDSEY Final Result Performing Organization Address [facility] de Phone Number [facility] [address] [place] [address] * (ABNORMAL) GLUCOSE, GLUCOMETER (10/22/2008 11:05 EDT) Glucose, Fingerstick 114(H) 70 - 100 mg/dl [facility] Cardiovascular Surgical Tech ID [id number] Test Performed by Nursing Services [facility] 10/22/2008 11:0 5 EDT 10/22/2008 23:16 EDT Thad Marroquin MD MSc CHEMISTRY & BLOOD GAS ORDER LYNDSEY Final Result Performing Organization Address [facility] Co de Phone Number [facility] [address] [place] [address] * (ABNORMAL) ELECTROLYTES (10/22/2008 7:36 EDT) Sodium 134(L) 136 - 145 mEq/L [facility] Potassium 4.5 3.5 - 5.0 mEq/L [facility] Chloride 106 96 - 110 mEq/L [facility] CO2 21(L) 24 - 32 mEq/L [facility] 10/22/2008 7:36 EDT 10/22/2008 7:36 EDT Christopher Ga MD CHEMISTRY & BLOOD GAS ORDER LYNDSEY Final Result Performing Organization Address [facility] de Phone Number [facility] [address] [place] [address] * (ABNORMAL) GLUCOSE, GLUCOMETER (10/22/2008 7:26 EDT) Glucose, Fingerstick 124(H) 70 - 100 mg/dl [facility] Cardiovascular Surgical Tech ID [id number] Test Performed by Nursing Services [facility] 10/22/2008 7:26 EDT 10/22/2008 23:16 EDT Thad Marroquin MD MSc CHEMISTRY & BLOOD GAS ORDER LYNDSEY Final Result Performing Organization Address [facility] Co de Phone Number [facility] [address] [place] [address] * GLUCOSE, SERUM (10/22/2008 3:29 EDT) Glucose, Serum 95 70 - 100 mg/dl [facility] 10/22/2008 3:29 EDT 10/22/2008 3:29 EDT us Christopher Ga MD CHEMISTRY & BLOOD GAS ORDER LYNDSEY Final Result Performing Organization Address [facility] de Phone Number [facility] [address] [place] [address] * (ABNORMAL) PTT (10/22/2008 3:29 EDT) PTT 39(H) 20 - 35 secs [facility] Comment:Therapeutic Heparin range: 60-100 seconds 10/22/2008 3:29 EDT 10/22/2008 3:29 EDT us Christopher Ga MD HEMATOLOGY & PF4 ORDERABLES Final Result Performing Organization Address [facility] Phone Number [facility] [address] [place] [address] * (ABNORMAL) PROTIME (10/22/2008 3:29 EDT) Pro [...] PF4 ORDERABLES Final Result Performing Organization Address [facility] de Phone Number [facility] [address] [place] [address] * PHOSPHORUS (10/22/2008 3:29 EDT) Phosphorus 3.6 2.5 - 4.5 mg/dl [facility] 10/22/2008 3:29 EDT 10/22/2008 3:29 EDT us Christopher Ga MD CHEMISTRY & BLOOD GAS ORDER LYNDSEY Final Result Performing Organization Address [facility] de Phone Number [facility] [address] [place] [address] * (ABNORMAL) MAGNESIUM (10/22/2008 3:29 EDT) Magnesium 1.4(L) 1.7 - 2.8 mg/dl [facility] 10/22/2008 3:29 EDT 10/22/2008 3:29 EDT us Christopher Ga MD CHEMISTRY & BLOOD GAS ORDER LYNDSEY Final Result Performing Organization Address [facility] de Phone Number [facility] [address] [place] [address] * (ABNORMAL) CREATININE (10/22/2008 3:29 EDT) Creatinine 0.60(L) 0.7 - 1.5 mg/dl [facility] GFR, Calculated >60 ml/min/1.7 3m2 [facility] 10/22/2008 3:29 EDT 10/22/2008 3:29 EDT us Christopher Ga MD CHEMISTRY & BLOOD GAS ORDER LYNDSEY Final Result Performing Organization Address [facility] de Phone Number [facility] [address] [place] [address] * (ABNORMAL) BUN (10/22/2008 3:29 EDT) BUN 6(L) 10 - 26 mg/dl [facility] 10/22/2008 3:29 EDT 10/22/2008 3:29 EDT us Christopher Ga MD CHEMISTRY & BLOOD GAS ORDER LYNDSEY Final Result Performing Organization Address [facility] Co de Phone Number [facility] [address] [place] [address] * (ABNORMAL) ELECTROLYTES (10/22/2008 3:29 EDT) Sodium 132(L) 136 - 145 mEq/L [facility] Potassium 5.3(H) 3.5 - 5.0 mEq/L [facility] Chloride 105 96 - 110 mEq/L [facility] CO2 21(L) 24 - 32 mEq/L [facility] 10/22/2008 3:29 EDT 10/22/2008 3:29 EDT us Christopher Ga MD CHEMISTRY & BLOOD GAS ORDER LYNDSEY Final Result Performing Organization Address [facility] de Phone Number [facility] [address] [place] [address] * (ABNORMAL) HEMAGRAM (10/22/2008 3:29 EDT) WBC 3.60(L) 4.0 - 10.4 K/cmm [facility] RBC 4.25(L) 4.36 - 5.78 M/cmm [facility] Hemoglobin 10.8(L) 13.8 - 17.3 gm/dl [facility] HCT 31.8(L) 39.5 - 50.2 % [facility] MCV 75(L) 81 - 95 fl [facility] MCH 25.5(L) 27.6 - 33.0 pg [facility] MCHC 34.1 32.8 - 36.4 gm/dl [facility] PLT 111(L) 141 - 320 K/cmm [facility] RDW-CV 17.1(H) 11.8 - 14.1 % [facility] 10/22/2008 3:29 EDT 10/22/2008 3:29 EDT us Christopher Ga MD HEMATOLOGY & PF4 ORDERABLES Final Result Performing Organization Address [facility] de Phone Number [facility] [address] [place] [address] * (ABNORMAL) OSMOLALITY, URINE (10/22/2008 0:43 EDT) Osmolality, Ur 64(L) 392 - 1090 MOS/KG [facility] 10/22/2008 0:43 EDT 10/22/2008 0:43 EDT us Christopher Ga MD URINALYSIS ORDERABLES Final Result Performing Organization Address [facility] de Phone Number [facility] [address] [place] [address] * SODIUM, URINE RANDOM (10/22/2008 0:43 EDT) Pathologist [facility] Sodium, Ur <5.0 mEq/L [facility] 10/22/2008 0:43 EDT 10/22/2008 0:43 EDT us Christopher Ga MD URINALYSIS ORDERABLES Final Result Performing Organization Address [facility] Phone Number [facility] [address] [place] [address] * GLUCOSE, GLUCOMETER (10/22/2008 0:19 EDT) [facility] Glucose, Fingerstick 87 70 - 100 mg/dl [facility] Cardiovascular Surgical Tech ID [id number] Test Performed by Nursing Services [facility] 10/22/2008 0:19 EDT 10/22/2008 23:16 EDT us Thad Marroquin MD MSc CHEMISTRY & BLOOD GAS ORDER LYNDSEY Final Result Performing Organization Address [facility] Phone Number [facility] [address] [place] [address] * (ABNORMAL) OSMOLALITY (10/22/2008 0:00 EDT) [facility] Osmolality Cintia 273(L) 280 - 300 MOS/KG [facility] 10/22/2008 10/22/2008 0:2 2 EDT us Christopher Ga MD CHEMISTRY & BLOOD GAS ORDER LYNDSEY Final Result Performing Organization Address [facility] de Phone Number [facility] [address] [place] [address] * (ABNORMAL) ELECTROLYTES (10/22/2008 0:00 EDT) Sodium 127(L) 136 - 145 mEq/L [facility] Potassium 5.5(H) 3.5 - 5.0 mEq/L [facility] Chloride 101 96 - 110 mEq/L [facility] CO2 21(L) 24 - 32 mEq/L [facility] 10/22/2008 10/22/2008 0:2 2 EDT us Christopher Ga MD CHEMISTRY & BLOOD GAS ORDER LYNDSEY Final Result [facility] [address] [place] [address] documented in this encounter Visit Diagnoses Not on filedocumented in this encounter Care Teams Casino Duty Manager Relationship Specialty Start Date End Date Corin Skinner MD [address] [place] [phone] PCP - General 10/24/08 08/21/09 documented as of this encounter
--- OUTSIDE RECORDS SUMMARY | 2024-07-30 02:59 | XMS_ITS | Encounter Summary ---
Author Organization [facility] Address [address] [place] [address] Care Team Providers Care Employee Relations Specialist Name Role Phone Yan Demarco MD Primary Care Provider Corin Skinner MD Primary Care Provider [phone] Encounter Details Date Type Department Care Team (Late st Contact Info) Description 10/21/2008 Office Visit [facility] - Map conversion [address] [place] [address] Slava Pineda MD Social History Tobacco Use [...] 3 days of decreased MS. sent from [facility] after being found hyponatremic and hypothermic has [...] gm. Pt received stress dose steroid at [facility] (D10 at 60 cc/hr). . Critical care [...] Addenda for MIGUEL ANGEL BURGOS JR VisitID: [id number] Date: 10/21/2008 10/21/2008 14:[address] JUAREZ. PT COMING BY AMBULANCE FROM [facility] FOR ED EVAL. PAGE PED ON ARRIVAL. signed by Landy Garcia 10/21/2008 14:56) 10/21/2008 15:[address] ONTIVEROS. PT COMING FROM [facility]. HYPOTHERMIC R TEMP 87.4 HYPONAUTREMIC NA 120. [...] (unable to determine as pt unresponsive). Treatment RETAIL OFFICE ASSOCIATE: (Solucortef 100mg IV). Arrived by EMS. Historian: EMS. (Pt presented to [facility] with hypotension/ hypothermia and unresponsive. Pt transfered to [facility] ED for pediatric/ neuro consult.). --1638 [...] morse catheter attached to bedside drainage bag (RETAIL OFFICE ASSOCIATE). (Dr. Pineda at bedside to assess pt. [...] --1712 Philippe Healy R.N. (EKG performed by [employer] showed to Dr. Pineda.). --1713 Philippe Healy [...] X 8 cm irregular light brown bruise [id number] diameter darker brown bruise #3. (no standard) [...] (follow up phone call to Domonique at [facility] confirming that photographs have been taken and [...] Philippe Healy R.N.. Kaylie Thakur R.N., R.N., [facility] Locked/Released at 10/22/2008 7:44 by Anabelle Perez R.N. documented in this encounter Plan of Treatment Upcoming Encounters Date Type Department Care Team (Late st Contact Info) Description 10/01/2024 13:40 EDT Office Visit [facility] Endocrinology - [facility] [address] [place], [place] [id number] Wilder Zaidi, [address] [facility] [address] [place] [phone] documented as of this encounter Visit Diagnoses Not on filedocumented in this encounter Care Teams Employee Relations Specialist Relationship Specialty Start Date End Date Yan Demarco MD [address] [phone] PCP - General 08/22/09 02/20/10 Corin Skinner MD [address] [place] [phone] PCP - General 10/24/08 08/21/09 documented as of this encounter
--- OUTSIDE RECORDS SUMMARY | 2024-07-30 02:59 | XMS_ITS | Encounter Summary ---
Author Organization [facility] Address [address] [place] [address] Care Team Providers Care Foundation Engineer Name Role Phone Corin Skinner MD Primary Care Provider [phone] Encounter Details Date Type Department Care Team (Late st Contact Info) Description 10/21/2008 Before PRISM Converted Visit (Maple) [facility] - Maple conversion [address] [place] [address] Emergency, MD Diya Social History Tobacco Use [...] Visit [facility] Endocrinology - [facility] [address] [place] [address] Wilder Zaidi, DO [address] [facility] [address] [place] [phone] documented [...] ORDER LYNDSEY Final Result Performing Organization Address City/State/[facility] Co de Phone Number [facility] [address] [place] [address] documented in this encounter Visit Diagnoses Not on filedocumented in this encounter Care Teams Foundation Engineer Relationship Specialty Start Date End Date Corin Skinner MD [address] [place] [phone] PCP - General 10/24/08 08/21/09 documented as of this encounter
--- OUTSIDE RECORDS SUMMARY | 2024-07-30 02:59 | XMS_ITS | Encounter Summary ---
Author Organization [facility] Address [address] [place] [address] Care Team Providers Care Sheet Hanger Name Role Phone Corin Skinner MD Primary Care Provider Encounter Details Date Type Department Care Team (Late st Contact Info) Description 10/21/2008 Before PRISM Converted Visit (Maple) [facility] - Maple conversion [address] [place], [place] [address] Christopher Ga MD [address] [place] [phone] Social History Tobacco Use Types Packs/Day [...] 10/01/2024 13:40 EDT Office Visit [facility] - [facility] [address] [place] [address] Wilder Zaidi DO [address] [facility] [address] [place] [address] documented as of this encounter [...] [facility] Sample Type ARTERIAL [facility] fur puller [place] [id number] Test Performed by Respiratory For non-arterial reference ranges, please see ISTAT procedure. [facility] 10/21/2008 16:4 6 EDT 10/22/2008 1:20 EDT us Christopher Ga MD CHEMISTRY & BLOOD GAS ORDER LYNDSEY Final Result [facility] [address] [place] [address] documented in this encounter Visit Diagnoses Not on filedocumented in this encounter Care Teams Sheet Hanger Relationship Specialty Start Date End Date Corin Skinner MD [address] [place] [phone] PCP - General 10/24/08 08/21/09 documented as of this encounter
--- OUTSIDE RECORDS SUMMARY | 2024-07-30 02:59 | XMS_ITS | Encounter Summary ---
Author Organization [facility] Address [address] [place] [address] Care Team Providers Care Manager Of Security Name Role Phone Corin Skinner MD Primary Care Provider Encounter Details Date Type Department Care Team (Late st Contact Info) Description 10/21/2008 Before PRISM Converted Visit (Maple) [facility] - Maple conversion [address] [place], [place] [address] Christopher Ga MD [address] [place] [phone] Social History Tobacco Use Types Packs/Day [...] Visit [facility] Endocrinology - [facility] [address] [place] [address] Wilder Zaidi DO [address] [facility] [address] [place] [address] documented as of this encounter Procedures Procedure Name Priority Date/Time Associated Diagnosis Comments GLUCOSE, GLUCOMETER Routine 10/21/2008 1 9:22 EDT documented in this encounter Results * GLUCOSE, GLUCOMETER (10/21/2008 19:22 EDT) Glucose, Fingerstick 89 70 - 100 mg/dl [facility] Digital Marketing Analyst ID [id number] Test Performed by Nursing Services [facility] 10/21/2008 19:2 2 EDT 10/21/2008 23:29 EDT us Christopher Ga MD CHEMISTRY & BLOOD GAS ORDER LYNDSEY Final Result [facility] [address] [place] [address] documented in this encounter Visit Diagnoses Not on filedocumented in this encounter Care Teams Manager Of Security Relationship Specialty Start Date End Date Corin Skinner MD [address] [place] [phone] PCP - General 10/24/08 08/21/09 documented as of this encounter
--- OUTSIDE RECORDS SUMMARY | 2024-07-30 02:59 | XMS_ITS | Encounter Summary ---
Author Organization [facility] Address [address] [place] [address] Care Team Providers Care Goodwill Representative Name Role Phone Corin Skinner MD Primary Care Provider [phone]- [phone] Encounter Details Date Type Department Care Team (Late st Contact Info) Description 10/21/2008 Before PRISM Converted Visit (Maple) [facility] Adult Primary Care - [address] [phone] Unknown, Provider, Social History Tobacco Use Types [...] Visit [facility] Endocrinology - [address] [phone] Wilder Zaidi, DO [address] [facility] [address] [place] [address] documented as of this encounter Procedures Procedure Name Priority Date/Time Associated Diagnosis Comments GLUCOSE, GLUCOMETER Routine 10/21/2008 1 7:16 EDT documented in this encounter Results * (ABNORMAL) GLUCOSE, GLUCOMETER (10/21/2008 17:16 EDT) Glucose, Fingerstick 166(H) 70 - 100 mg/dl [facility] Form Carpenter ID [id number] Test Performed by Nursing Services [facility] 10/21/2008 17:1 6 EDT 10/21/2008 17:33 EDT us Provider Unknown MD CHEMISTRY & BLOOD GAS ORDERA BLES Final Result Performing Organization Address City/State/[facility] Co de Phone Number [facility] [address] [place] [address] documented in this encounter Visit Diagnoses Not on filedocumented in this encounter Care Teams Goodwill Representative Relationship Specialty Start Date End Date Corin Skinner MD [address] [place] [phone] PCP - General 10/24/08 08/21/09 documented as of this encounter
--- OUTSIDE RECORDS SUMMARY | 2024-07-30 02:59 | XMS_ITS | Encounter Summary ---
Author Organization [facility] Address [address] [place] [address] Care Team Providers Care Splitting Machine Feeder Name Role Phone Corin Skinner MD Primary Care Provider [phone]- [phone] Encounter Details Date Type Department Care Team (Late st Contact Info) Description 10/21/2008 Before PRISM Converted Visit (Maple) [facility] - Maple conversion [address] [place] [address] Emergency, MD Diya Social History Tobacco Use [...] Visit [facility] Endocrinology - [facility] [address] [place] [address] Wilder Zaidi, DO [address] [facility] [address] [place] [address] documented as of this encounter [...] PF4 ORDERABLES Final Result Performing Organization Address City/State/[facility] Co de Phone Number [facility] [address] [place] [address] documented in this encounter Visit Diagnoses Not on filedocumented in this encounter Care Teams Splitting Machine Feeder Relationship Specialty Start Date End Date Corin Skinner MD [address] [place] [phone] PCP - General 10/24/08 08/21/09 documented as of this encounter
--- OUTSIDE RECORDS SUMMARY | 2024-07-30 02:59 | XMS_ITS | Encounter Summary ---
Author Organization [facility] Address [address] [place] [address] Care Team Providers Care Manufacturing Advisor Name Role Phone Corin Skinner MD Primary Care Provider [phone]- [phone] Encounter Details Date Type Department Care Team (Late st Contact Info) Description 10/21/2008 Before PRISM Converted Visit (Maple) [facility] - Maple conversion [address] [place] [address] Emergency, MD Diya Social History Tobacco Use [...] Visit [facility] Endocrinology - [facility] [address] [place] [address] Wilder Zaidi, DO 62 [facility] [address] [place] [address] documented as of this encounter [...] de Phone Number [facility] [address] [place] [address] documented in this encounter Visit Diagnoses Not on filedocumented in this encounter Care Teams Manufacturing Advisor Relationship Specialty Start Date End Date Corin Skinner MD [address] [place] [phone] PCP - General 10/24/08 08/21/09 documented as of this encounter
--- OUTSIDE RECORDS SUMMARY | 2024-07-30 02:59 | XMS_ITS | Encounter Summary ---
Author Organization [facility] Address [address] [place] [address] Care Team Providers Care Ship Rigger Apprentice Name Role Phone Corin Skinner MD Primary Care Provider [phone]- [phone] Encounter Details Date Type Department Care Team (Late st Contact Info) Description 10/21/2008 Before PRISM Converted Visit (Maple) [facility] - Maple conversion [address] [place], [place] [address] Christopher Ga MD [address] [place] [phone] Social History Tobacco Use Types Packs/Day [...] Office Visit [facility] Endocrinology - [facility] [address] [place] [address] Wilder Zaidi DO 62 [facility] [address] [place] [address] documented as of this encounter Procedures Procedure Name Priority Date/Time Associated Diagnosis Comments SODIUM, URINE RANDOM Routine 10/21/2008 21:00 EDT documented in this encounter Results * SODIUM, URINE RANDOM (10/21/2008 21:00 EDT) Sodium, Ur <5.0 mEq/L [facility] 10/21/2008 21:0 0 EDT 10/21/2008 21:16 EDT us Christopher Ga MD URINALYSIS ORDERABLES Final Result Performing Organization Address City/State/[facility] Co de Phone Number [facility] [address] [place] [address] documented in this encounter Visit Diagnoses Not on filedocumented in this encounter Care Teams Ship Rigger Apprentice Relationship Specialty Start Date End Date Corin Skinner MD [address] [place] [phone] PCP - General 10/24/08 08/21/09 documented as of this encounter
--- OUTSIDE RECORDS SUMMARY | 2024-07-30 02:59 | XMS_ITS | Encounter Summary ---
Author Organization [facility] Address [address] [place] [address] Care Team Providers Care Potato Chip Processing Supervisor Name Role Phone Corin Skinner MD Primary Care Provider [phone]- [phone] Encounter Details Date Type Department Care Team (Late st Contact Info) Description 10/21/2008 Before PRISM Converted Visit (Maple) [facility] - Maple conversion [address] [place], [place] [address] Christopher Ga MD [address] [place] [phone] Social History Tobacco Use Types Packs/Day [...] Description 10/01/2024 13:40 EDT Office Visit [facility] Endocrinology - [facility] [address] [place] [address] Wilder Zaidi DO 62 [facility] [address] [place] [address] documented as of this [...] de Phone Number [facility] [address] [place] [address] documented in this encounter Visit Diagnoses Not on filedocumented in this encounter Care Teams Potato Chip Processing Supervisor Relationship Specialty Start Date End Date Corin Skinner MD [address] [place] [phone] PCP - General 10/24/08 08/21/09 documented as of this encounter
--- OUTSIDE RECORDS SUMMARY | 2024-07-30 02:59 | XMS_ITS | Encounter Summary ---
Author Organization [facility] Address [address] [place] [address] Care Team Providers Care Waste Water Operator Name Role Phone Corin Skinner MD Primary Care Provider Encounter Details Date Type Department Care Team (Late st Contact Info) Description 10/21/2008 Before PRISM Converted Visit (Maple) [facility] - Maple conversion [address] [place], [place] [address] Christopher Ga MD [address] [place] [phone] Social History Tobacco Use Types Packs/Day [...] [facility] End[facility] - [facility] [address] [place] [address] Wilder Zaidi DO 62 [facility] [address] [place] [address] documented as of this [...] de Phone Number [facility] [address] [place] [address] documented in this encounter Visit Diagnoses Not on filedocumented in this encounter Care Teams Waste Water Operator Relationship Specialty Start Date End Date Corin Skinner MD [address] [place] [phone] PCP - General 10/24/08 08/21/09 documented as of this encounter
--- OUTSIDE RECORDS SUMMARY | 2024-07-30 02:59 | XMS_ITS | Encounter Summary ---
Author Organization [facility] Address [address] [place] [address] Care Team Providers Care Auto Finance Sales Rep Name Role Phone Corin Skinner MD Primary Care Provider [phone]- [phone] Encounter Details Date Type Department Care Team (Late st Contact Info) Description 10/21/2008 Before PRISM Converted Visit (Maple) [facility] - Maple conversion [address] [place] [address] Emergency, MD Diya Social History Tobacco Use [...] Visit [facility] Endocrinology - [facility] [address] [place] [address] Wilder Zaidi, DO 62 [facility] [address] [place] [address] documented as of this encounter Procedures Procedure Name Priority Date/Time Associated Diagnosis Comments OSMOLALITY Routine 10/21/2008 17:54 EDT documented in this encounter Results * (ABNORMAL) OSMOLALITY (10/21/2008 17:54 EDT) Osmolality Cintia 258(L) 280 - 300 MOS/KG [facility] 10/21/2008 17:5 4 EDT 10/21/2008 17:54 EDT us Default Emergency MD CHEMISTRY & BLOOD GAS ORDER LYNDSEY Final Result Performing Organization Address City/State/[facility] Co de Phone Number [facility] [address] [place] [address] documented in this encounter Visit Diagnoses Not on filedocumented in this encounter Care Teams Auto Finance Sales Rep Relationship Specialty Start Date End Date Corin Skinner MD [address] [place] [phone] PCP - General 10/24/08 08/21/09 documented as of this encounter
--- OUTSIDE RECORDS SUMMARY | 2024-07-30 02:59 | XMS_ITS | Encounter Summary ---
Author Organization [facility] Address [address] [place] [address] Care Team Providers Care Carton Forming Machine Tender Name Role Phone Yan Demarco MD Primary Care Provider [phone] Corin Skinner MD Primary Care Provider [phone] Akil Serrano MD Primary Care Provider [phone] Yossi Torres MD Primary Care Provider [phone] Emilee Cody MD Primary Care Provider + Ren aVz MD Primary Care Provider [phone] Encounter Details Date Type Department Care Team (Late st Contact Info) Description 10/21/2008 Before PRISM Converted Visit (Maple) [facility] - Maple conversion [address] [place] [address] Slava Pineda MD Social History Tobacco Use [...] [facility] Endocrinology - [facility] [address] [place], [place] [phone] Wilder Zaidi, 62 [facility] [address] [place] [address] documented as of this encounter Procedures Procedure [...] on filedocumented in this encounter Care Teams Carton Forming Machine Tender Relationship Specialty Start Date End Date Yan Demarco MD [address] [place] [address] PCP - General 08/22/09 02/20/10 Corin Skinner MD [address] [place] [phone] PCP - General 10/24/08 08/21/09 Akil Serrano MD 74 [facility] [address] [place], [place] [address] PCP - General 02/21/10 04/16/11 Yossi Torres MD [address] [place] [phone] PCP - General 04/17/11 03/14/16 Emilee Cody MD [address] [place] [phone] PCP - General 03/15/16 09/29/18 Ren Vaz MD [address] [place] [phone] PCP - General 09/30/18 documented as of this encounter
--- OUTSIDE RECORDS SUMMARY | 2024-07-30 02:59 | XMS_ITS | Encounter Summary ---
Author Organization [facility] Address [address] [place] [address] Care Team Providers Care Sofa Inspector Name Role Phone Corin Skinner MD Primary Care Provider [phone]- [phone] Encounter Details Date Type Department Care Team (Late st Contact Info) Description 10/21/2008 Before PRISM Converted Visit (Maple) [facility] - Maple conversion [address] [place] [address] Emergency, MD Diya Social History Tobacco Use [...] Office Visit [facility] Endocrinology - [facility] [address] [place] [address] Wilder Zaidi, DO 62 [facility] [address] [place] [address] documented as of this encounter [...] Phone Number [facility] [address] [place] [address] documented in this encounter Visit Diagnoses Not on filedocumented in this encounter Care Teams Sofa Inspector Relationship Specialty Start Date End Date Corin Skinner MD [address] [place] [phone] PCP - General 10/24/08 08/21/09 documented as of this encounter
--- OUTSIDE RECORDS SUMMARY | 2024-07-30 02:59 | XMS_ITS | Encounter Summary ---
Author Organization [facility] Address [address] [place] [address] Care Team Providers Care Emergency Operator Name Role Phone Yan Demarco MD Primary Care Provider [phone] Corin Skinner MD Primary Care Provider [phone] Akil Serrano MD Primary Care Provider [phone] Yossi Torres MD Primary Care Provider [phone] Emilee Cody MD Primary Care Provider + Ren Vaz MD Primary Care Provider [phone] Encounter Details Date Type Department Care Team (Late st Contact Info) Description 10/23/2008 Before PRISM Converted Visit (Maple) [facility] Primary Care [address] [phone] Aisha Otero MD 111 [facility] [place], [address] [place] [address] Social History Tobacco Use Types [...] Info) Description 10/01/2024 13:40 EDT Office Visit [facility] End[place]ology - [place] [address] [place], [place] [phone] Shonjalyn Wilder Erik, DO [address] [place] [address] documented as [...] on filedocumented in this encounter Care Teams Emergency Operator Relationship Specialty Start Date End Date Yan Demarco MD [address] [place] [address] PCP - General 08/22/09 02/20/10 Corin Skinner MD [address] [place] [phone] PCP - General 10/24/08 08/21/09 Akil Serrano MD 74 [facility] 100 [place], [place] [phone] PCP - General 02/21/10 04/16/11 Yossi Torres MD [address] [place] [phone] PCP - General 04/17/11 03/14/16 Emilee Cody MD [address] [place], [place] [phone] PCP - General 03/15/16 09/29/18 Ren Vaz MD [address] [place] [phone] PCP - General 09/30/18 documented as of this encounter
--- OUTSIDE RECORDS SUMMARY | 2024-07-30 02:59 | XMS_ITS | Encounter Summary ---
Author Organization [facility] Address [address] [place] [address] Care Team Providers Care Director Digital Advertising Name Role Phone Yan Demarco MD Primary Care Provider [phone] Corin Skinner MD Primary Care Provider [phone] Akil Serrano MD Primary Care Provider [phone] Yossi Torres MD Primary Care Provider [phone] Emilee Cody MD Primary Care Provider + Ren Vaz MD Primary Care Provider [phone] Encounter Details Date Type Department Care Team (Late st Contact Info) Description 10/22/2008 Before PRISM Converted Visit (Maple) [facility] - Maple conversion [address] [place] [address] Christopher Ga MD [address] [place] [phone] Social History Tobacco Use Types Packs/Day [...] [facility] End[facility]ology - [address] [phone] Wilder Zaidi, DO 62 [facility] [address] [place] [address] documented as of this encounter [...] filedocumented in this encounter Care Teams Director Digital Advertising Relationship Specialty Start Date End Date Yan Demarco MD [address] [place] [address] PCP - General 08/22/09 02/20/10 Corin Skinner MD [address] [place] [phone] PCP - General 10/24/08 08/21/09 Akil Serrano MD 74 [facility] 100 [place], [place] [phone] PCP - General 02/21/10 04/16/11 Yossi Torres MD [address] [place] [phone] PCP - General 04/17/11 03/14/16 Emilee Cody MD [address] [place] [phone] PCP - General 03/15/16 09/29/18 Ren Vaz MD [address] [place] [phone] PCP - General 09/30/18 documented as of this encounter
--- OUTSIDE RECORDS SUMMARY | 2024-07-30 02:59 | XMS_ITS | Encounter Summary ---
Author Organization [facility] Address [address] [place] [address] Care Team Providers Care Community Health Outreach Worker Name Role Phone Corin Skinner MD Primary Care Provider [phone]- [phone] Encounter Details Date Type Department Care Team (Late st Contact Info) Description 10/21/2008 Before PRISM Converted Visit (Maple) [facility] - Maple conversion [address] [place] [address] Emergency, MD Diya Social History Tobacco Use [...] Visit [facility] Endocrinology - [facility] [address] [place] [address] Wilder Zaidi, DO [address] [facility] [address] [place] [address] documented as of this encounter [...] LYNDSEY Final Result Performing Organization Address City/State/[facility] Co de Phone Number [facility] [address] [place] [address] documented in this encounter Visit Diagnoses Not on filedocumented in this encounter Care Teams Community Health Outreach Worker Relationship Specialty Start Date End Date Corin Skinner MD [address] [place] [phone] PCP - General 10/24/08 08/21/09 documented as of this encounter
--- OUTSIDE RECORDS SUMMARY | 2024-07-30 02:59 | XMS_ITS | Encounter Summary ---
Author Organization [facility] Address [address] [place] [address] Care Team Providers Care School Traffic Supervisor Name Role Phone Corin Skinner MD Primary Care Provider [phone] Encounter Details Date Type Department Care Team (Late st Contact Info) Description 10/21/2008 Before PRISM Converted Visit (Maple) [facility] - Maple conversion [address] [place], [place] [address] Christopher Ga MD [address] [place] [phone] Social History Tobacco Use Types Packs/Day [...] EDT Office Visit [facility] Endocrinology - [facility] [address] [place] [address] Wilder Zaidi DO 62 [facility] [address] [place] [address] documented as of this encounter Procedures Procedure Name Priority Date/Time Associated Diagnosis Comments SMEAR REVIEW Routine 10/21/2008 22:35 EDT documented in this encounter Results * SMEAR REVIEW (10/21/2008 22:35 EDT) Platelet Morphology 1+ Large platelets [facility] 10/21/2008 22:3 5 EDT 10/21/2008 22:35 EDT us Christopher Ga MD HEMATOLOGY & PF4 ORDERABLES Final Result [facility] [address] [place] [address] documented in this encounter Visit Diagnoses Not on filedocumented in this encounter Care Teams School Traffic Supervisor Relationship Specialty Start Date End Date Corin Skinner MD [address] [place] [phone] PCP - General 10/24/08 08/21/09 documented as of this encounter
--- OUTSIDE RECORDS SUMMARY | 2024-07-30 02:59 | XMS_ITS | Encounter Summary ---
Author Organization [facility] Address [address] [place] [address] Care Team Providers Care Electrical And Radio Mechanic Name Role Phone Corin Skinner MD Primary Care Provider Encounter Details Date Type Department Care Team (Late st Contact Info) Description 10/21/2008 Before PRISM Converted Visit (Maple) [facility] - Maple conversion [address] [place], [place] [address] Christopher Ga MD [address] [place] [phone] Social History Tobacco Use Types Packs/Day [...] EDT Office Visit [facility] Endocrinology - [facility] [address] [place] [address] Wilder Zaidi DO 62 [facility] [address] [place] [address] documented as of this encounter Procedures Procedure Name Priority Date/Time Associated Diagnosis Comments GLUCOSE, GLUCOMETER Routine 10/21/2008 2 2:27 EDT documented in this encounter Results * (ABNORMAL) GLUCOSE, GLUCOMETER (10/21/2008 22:27 EDT) Glucose, Fingerstick 103(H) 70 - 100 mg/dl [facility] Fluid Designer ID [id number] Test Performed by Nursing Services [facility] 10/21/2008 22:2 7 EDT 10/21/2008 23:30 EDT us Christopher Ga MD CHEMISTRY & BLOOD GAS ORDER LYNDSEY Final Result [facility] [address] [place] [address] documented in this encounter Visit Diagnoses Not on filedocumented in this encounter Care Teams Electrical And Radio Mechanic Relationship Specialty Start Date End Date Corin Skinner MD [address] [place] [phone] PCP - General 10/24/08 08/21/09 documented as of this encounter
--- OUTSIDE RECORDS SUMMARY | 2024-07-30 02:59 | XMS_ITS | Encounter Summary ---
Author Organization [facility] Address [address] [place] [address] Care Team Providers Care Metal Inspector Name Role Phone Unavailable Primary Care Provider Unavailabl e Encounter Details Date Type Department Care Team (Late st Contact Info) Description 08/13/2008 14:44 EST - 08/14/2008 11:59 EST Hospital Encounter [facility] [address] [place] [address] Summer Parr MD 111 [facility], [address] [address] Slava Pineda MD Discharge Disposition: [...] 12/14/2008 0820 EDT HISS DISCHARGE SUMMARY ADDRESS: [address] [place] [address] PHONE: [phone] ATTENDING PHYSICIAN: SUMMER PARR MD ADDRESS: [place] [address] [address] [place] [address] PHONE: [phone] REFERRING PHYSICIAN: ANCELMO MICHAEL MD ADDRESS: [facility] [address] [place] [address] PHONE: [phone] ADMISSION DATE: 08/13/08 SERVICE: PED. MEDICINE TRANSFER TO IP: DISCHARGE DATE: 08/14/08 SERVICE: PED. 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 CONDITION AT DISCHARGE: Stable DISPOSITION AT DISCHARGE: Home without home health services - Nursing, PT, OT, MANAGEMENT ENGINEER ALLERGIES: The following allergies were reported by [...] 9) POTASSIUM CHLORIDE / (kcl ext-rel tab (long term)) 30MEQ EXTENDED RELEASE TABLET, 3 TIMES A DAY, BY MOUTH MEDICATIONS YOU WERE TAKING PRIOR TO ADMISSION THAT SHOULD BE STOPPED: NONE HERBAL REMEDIES, NUTRITIONAL SUPPLEMENTS, AND WYWH-[id number]-[id number] MEDICATIONS that have not been prescribed by a physician may have significant adverse side effect or may interfere with the medications that have been prescribed for you. If you are taking herbal remedies, nutritional supplements, or qwuk-bqy-[id number] medications you are strongly encouraged to discontinue [...] JOHAN PARIKH MD P - ZOHDocument ID: [id number] documented in this encounter Discharge Disposition Disposition Code Departure Means Destination Home or Self Care documented in this encounter Plan of Treatment Upcoming Encounters Date Type Department Care Team (Late st Contact Info) Description 10/01/2024 13:40 EDT Office Visit [facility] Endocrinology - [place] [address] [place], [place] [phone] Wilder Zaidi, DO [address] [facility] [address] [place] [address] documented as of this encounter [...] S Final Result Performing Organization Address [facility] de Phone Number [facility] [address] [place] [address] * BUN (08/14/2008 6:00 EST) BUN 14 10 - 26 mg/dl [facility] Comment:Heparinized plasma. 08/14/2008 6:00 EST 08/14/2008 9:43 EST Summer Parr MD CHEMISTRY & BLOOD GAS ORDERABLE S Final Result Performing Organization Address [facility] Co de Phone Number [facility] [address] [place] [address] * (ABNORMAL) ELECTROLYTES (08/14/2008 6:00 EST) Sodium [...] S Final Result [facility] [address] [place] [address] documented in this encounter Visit Diagnoses Not on filedocumented in this encounter
--- OUTSIDE RECORDS SUMMARY | 2024-07-30 02:59 | XMS_ITS | Encounter Summary ---
Author Organization [facility] Address [address] [place] [address] Care Team Providers Care Anesthesiologist Name Role Phone Corin Skinner MD Primary Care Provider Encounter Details Date Type Department Care Team (Late st Contact Info) Description 10/21/2008 Before PRISM Converted Visit (Maple) [facility] - Maple conversion [address] [place], [place] [address] Christopher Ga MD [address] [place] [phone] Social History Tobacco Use Types Packs/Day [...] Visit [facility] Endocrinology - [facility] [address] [place] [address] Wilder Zaidi DO 62 [facility] [address] [place] [address] documented as of this encounter Procedures Procedure Name Priority Date/Time Associated Diagnosis Comments MAGNESIUM Routine 10/21/2008 21:00 EDT documented in this encounter Results * (ABNORMAL) MAGNESIUM (10/21/2008 21:00 EDT) Magnesium 1.1(L) 1.7 - 2.8 mg/dl [facility] 10/21/2008 21:0 0 EDT 10/21/2008 21:17 EDT us Christopher Ga MD CHEMISTRY & BLOOD GAS ORDER LYNDSEY Final Result [facility] [address] [place] [address] documented in this encounter Visit Diagnoses Not on filedocumented in this encounter Care Teams Anesthesiologist Relationship Specialty Start Date End Date Corin Skinner MD [address] [place] [phone] PCP - General 10/24/08 08/21/09 documented as of this encounter
--- OUTSIDE RECORDS SUMMARY | 2024-07-30 02:59 | XMS_ITS | Encounter Summary ---
Author Organization [facility] Address [address] [place] [address] Care Team Providers Care Beauty School Instructor Name Role Phone Corin Skinner MD Primary Care Provider Encounter Details Date Type Department Care Team (Late st Contact Info) Description 10/21/2008 Before PRISM Converted Visit (Maple) [facility] - Maple conversion [address] [place], [place] [address] Christopher Ga MD [address] [place] [phone] Social History Tobacco Use Types Packs/Day [...] Visit [facility] Endocrinology - [facility] [address] [place] [address] Wilder Zaidi DO [address] [facility] [address] [place] [address] documented as of this encounter Procedures Procedure Name Priority Date/Time Associated Diagnosis Comments PHOSPHORUS Routine 10/21/2008 21:00 EDT documented in this encounter Results * PHOSPHORUS (10/21/2008 21:00 EDT) Phosphorus 3.6 2.5 - 4.5 mg/dl [facility] 10/21/2008 21:0 0 EDT 10/21/2008 21:17 EDT us Christopher Ga MD CHEMISTRY & BLOOD GAS ORDER LYNDSEY Final Result Performing Organization Address City/State/[facility] Co de Phone Number [facility] [address] [place] [address] documented in this encounter Visit Diagnoses Not on filedocumented in this encounter Care Teams Beauty School Instructor Relationship Specialty Start Date End Date Corin Skinner MD [address] [place] [phone] PCP - General 10/24/08 08/21/09 documented as of this encounter
--- OUTSIDE RECORDS SUMMARY | 2024-07-30 02:59 | XMS_ITS | Encounter Summary ---
Author Organization [facility] Address [address] [place] [address] Care Team Providers Care Parts Representative Name Role Phone Corin Skinner MD Primary Care Provider [phone] Encounter Details Date Type Department Care Team (Late st Contact Info) Description 10/21/2008 Before PRISM Converted Visit (Maple) [facility] - Maple conversion [address] [place], [place] [address] Christopher Ga MD [address] [place] [phone] Social History Tobacco Use Types Packs/Day [...] Office Visit [facility] Endocrinology - [facility] [address] [place] [address] Wilder Zaidi DO 62 [facility] [address] [place] [address] documented as of this encounter Procedures Procedure Name Priority Date/Time Associated Diagnosis Comments GLUCOSE, GLUCOMETER Routine 10/21/2008 2 1:18 EDT documented in this encounter Results * GLUCOSE, GLUCOMETER (10/21/2008 21:18 EDT) Glucose, Fingerstick 95 70 - 100 mg/dl [facility] [place] [id number] Test Performed by Nursing Services [facility] 10/21/2008 21:1 8 EDT 10/21/2008 23:29 EDT us Christopher Ga MD CHEMISTRY & BLOOD GAS ORDER LYNDSEY Final Result [facility] [address] [place] [address] documented in this encounter Visit Diagnoses Not on filedocumented in this encounter Care Teams Parts Representative Relationship Specialty Start Date End Date Corin Skinner MD [address] [place] [phone] PCP - General 10/24/08 08/21/09 documented as of this encounter
--- OUTSIDE RECORDS SUMMARY | 2024-07-30 02:59 | XMS_ITS | Encounter Summary ---
Author Organization [facility] Address [address] [place] [address] Care Team Providers Care Muck Operator Name Role Phone Corin Skinner MD Primary Care Provider Encounter Details Date Type Department Care Team (Late st Contact Info) Description 10/21/2008 Before PRISM Converted Visit (Maple) [facility] - Maple conversion [address] [place], [place] [address] Christopher Ga MD [address] [place] [phone] Social History Tobacco Use Types Packs/Day [...] EDT Office Visit [facility] Endocrinology - [facility] [address] [place] [address] Wilder Zaidi DO 62 [facility] [address] [place] [address] documented as of this encounter [...] PF4 ORDERABLES Final Result Performing Organization Address City/State/[facility] Co de Phone Number [facility] [address] [place] [address] documented in this encounter Visit Diagnoses Not on filedocumented in this encounter Care Teams Muck Operator Relationship Specialty Start Date End Date Corin Skinner MD [address] [place] [phone] PCP - General 10/24/08 08/21/09 documented as of this encounter
--- OUTSIDE RECORDS SUMMARY | 2024-07-30 02:59 | XMS_ITS | Encounter Summary ---
Author Organization [facility] Address [address] [place] [address] Care Team Providers Care Planer Feeder Name Role Phone Corin Skinner MD Primary Care Provider Encounter Details Date Type Department Care Team (Late st Contact Info) Description 10/21/2008 Before PRISM Converted Visit (Maple) [facility] - Maple conversion [address] [place], [place] [address] Christopher Ga MD [address] [place] [phone] Social History Tobacco Use Types Packs/Day [...] Info) Description 10/01/2024 13:40 EDT Office Visit [facility] Endocrinology - [facility] [address] [place] [address] Wilder Zaidi DO 62 [facility] [address] [place] [address] documented as of this encounter [...] LYNDSEY Final Result [facility] [address] [place] [address] documented in this encounter Visit Diagnoses Not on filedocumented in this encounter Care Teams Planer Feeder Relationship Specialty Start Date End Date Corin Skinner MD [address] [place] [phone] PCP - General 10/24/08 08/21/09 documented as of this encounter
--- OUTSIDE RECORDS SUMMARY | 2024-07-30 02:59 | XMS_ITS | Encounter Summary ---
Author Organization [facility] Address [address] [place] [address] Care Team Providers Care Development Mgr Name Role Phone Corin Skinner MD Primary Care Provider [phone] Encounter Details Date Type Department Care Team (Late st Contact Info) Description 10/21/2008 Before PRISM Converted Visit (Maple) [facility] - Maple conversion [address] [place] [address] Emergency, MD Diya Social History [...] Visit [facility] Endocrinology - [facility] [address] [place] [address] Wilder Zaidi, DO [address] [facility] [address] [place] [address] documented as of this encounter [...] LYNDSEY Final Result [facility] [address] [place] [address] documented in this encounter Visit Diagnoses Not on filedocumented in this encounter Care Teams Development Mgr Relationship Specialty Start Date End Date Corin Skinner MD [address] [place] [phone] PCP - General 10/24/08 08/21/09 documented as of this encounter
--- OUTSIDE RECORDS SUMMARY | 2024-07-30 02:59 | XMS_ITS | Encounter Summary ---
Author Organization [facility] Address [address] [place] [address] Care Team Providers Care Jewel Blocker And Sawyer Name Role Phone Corin Skinner MD Primary Care Provider [phone] Encounter Details Date Type Department Care Team (Late st Contact Info) Description 10/21/2008 Before PRISM Converted Visit (Maple) [facility] - Maple conversion [address] [place] [address] Emergency, MD Diya Social History Tobacco Use [...] Office Visit [facility] Endocrinology - [facility] [address] [place] [address] Wilder Zaidi, DO 62 [facility] [address] [place] [address] documented as of this encounter [...] ORDER LYNDSEY Final Result Performing Organization Address City/State/[facility] Co de Phone Number [facility] [address] [place] [address] documented in this encounter Visit Diagnoses Not on filedocumented in this encounter Care Teams Jewel Blocker And Sawyer Relationship Specialty Start Date End Date Corin Skinner MD [address] [place] [phone] PCP - General 10/24/08 08/21/09 documented as of this encounter
--- OUTSIDE RECORDS SUMMARY | 2024-07-30 02:59 | XMS_ITS | Encounter Summary ---
Author Organization [facility] Address [address] [place] [address] Care Team Providers Care Rheologist Name Role Phone Corin Skinner MD Primary Care Provider [phone] Encounter Details Date Type Department Care Team (Late st Contact Info) Description 10/21/2008 Before PRISM Converted Visit (Maple) [facility] - Maple conversion [address] [place] [address] Emergency, MD Diya Social History Tobacco Use [...] Office Visit [facility] Endocrinology - [facility] [address] [place] [address] Wilder Zaidi, DO 62 [facility] [address] [place] [address] documented as of this encounter Procedures Procedure Name Priority Date/Time Associated Diagnosis Comments TSH Routine 10/21/2008 17:54 EDT documented in this encounter Results * (ABNORMAL) TSH (10/21/2008 17:54 EDT) TSH <0.02(L) 0.35 - 5.00 uIU/ml [facility] 10/21/2008 17:5 4 EDT 10/21/2008 17:54 EDT us Default Emergency MD CHEMISTRY & BLOOD GAS ORDER LYNDSEY Final Result Performing Organization Address City/State/[facility] Co de Phone Number [facility] [address] [place] [address] documented in this encounter Visit Diagnoses Not on filedocumented in this encounter Care Teams Rheologist Relationship Specialty Start Date End Date Corin Skinner MD [address] [place] [phone] PCP - General 10/24/08 08/21/09 documented as of this encounter
--- OUTSIDE RECORDS SUMMARY | 2024-07-30 02:59 | XMS_ITS | Encounter Summary ---
Author Organization [facility] Address [address] [place] [address] Care Team Providers Care Kiln Stacker Name Role Phone Corin Skinner MD Primary Care Provider Encounter Details Date Type Department Care Team (Late st Contact Info) Description 10/21/2008 Before PRISM Converted Visit (Maple) [facility] - Maple conversion [address] [place], [place] [address] Christopher Ga MD [address] [place] [phone] Social History Tobacco Use Types Packs/Day [...] Visit [facility] Endocrinology - [facility] [address] [place] [address] Wilder Zaidi DO 62 [facility] [address] [place] [address] documented as of this encounter Procedures Procedure Name Priority Date/Time Associated Diagnosis Comments FIBRINOGEN Routine 10/21/2008 21:00 EDT documented in this encounter Results * (ABNORMAL) FIBRINOGEN (10/21/2008 21:00 EDT) Fibrinogen 425(H) 220 - 410 mg/dl [facility] 10/21/2008 21:0 0 EDT 10/21/2008 21:17 EDT us Christopher Ga MD HEMATOLOGY & PF4 ORDERABLES Final Result Performing Organization Address City/State/[facility] Co de Phone Number [facility] [address] [place] [address] documented in this encounter Visit Diagnoses Not on filedocumented in this encounter Care Teams Kiln Stacker Relationship Specialty Start Date End Date Corin Skinner MD [address] [place] [phone] PCP - General 10/24/08 08/21/09 documented as of this encounter
--- OUTSIDE RECORDS SUMMARY | 2024-07-30 02:59 | XMS_ITS | Encounter Summary ---
Author Organization [facility] Address [address] [place] [address] Care Team Providers Care Director Of Medicare Name Role Phone Corin Skinner MD Primary Care Provider [phone] Encounter Details Date Type Department Care Team (Late st Contact Info) Description 10/21/2008 Before PRISM Converted Visit (Maple) [facility] - Maple conversion [address] [place], [place] [address] Christopher Ga MD [address] [place] [phone] Social History Tobacco Use Types Packs/Day [...] EDT Office Visit [facility] Endocrinology - [facility] [address] [place] [address] Wilder Zaidi DO 62 [facility] [address] [place] [address] documented as of this encounter [...] LYNDSEY Final Result [facility] [address] [place] [address] documented in this encounter Visit Diagnoses Not on filedocumented in this encounter Care Teams Director Of Medicare Relationship Specialty Start Date End Date Corin Skinner MD [address] [place] [phone] PCP - General 10/24/08 08/21/09 documented as of this encounter
--- OUTSIDE RECORDS SUMMARY | 2024-07-30 02:59 | XMS_ITS | Encounter Summary ---
Author Organization [facility] Address [address] [place] [address] Care Team Providers Care Associate Data Scientist Name Role Phone Unavailable Primary Care Provider Unavailabl e Encounter Details Date Type Department Care Team (Late st Contact Info) Description 07/21/2008 18:45 EST - 07/26/2008 11:59 EST Hospital Encounter [facility] [address] [place], [place] [address] Jodi Parr MD [address] [place] [phone] Skyler Quinteros MD [address] [phone] Discharge Disposition: Home-Health Care Svc Social History [...] Office Visit [facility] Endocrinology - [address] [phone] Wilder Zaidi, [address] [place] [address] [place] [address] documented as of this [...] GAS ORDERABLES Final Result Performing Organization Address [facility] de Phone Number [facility] [address] [place] [address] * (ABNORMAL) ELECTROLYTES (07/26/2008 8:00 EST) Sodium 150(H) 136 - 145 mEq/L [facility] Potassium 4.1 3.5 - 5.0 mEq/L [facility] Chloride 112(H) 96 - 110 mEq/L [facility] CO2 25 24 - 32 mEq/L [facility] 07/26/2008 8:00 EST 07/26/2008 8:46 EST Skyler Quinteros MD, MSc CHEMISTRY & BLOOD GAS ORDERABLES Final Result Performing Organization Address [facility] de Phone Number [facility] [address] [place] [address] * (ABNORMAL) ELECTROLYTES (07/25/2008 8:10 EST) Sodium 147(H) 136 - 145 mEq/L [facility] Potassium 3.8 3.5 - 5.0 mEq/L [facility] Chloride 110 96 - 110 mEq/L [facility] CO2 23(L) 24 - 32 mEq/L [facility] 07/25/2008 8:10 EST 07/25/2008 8:39 EST Skyler Quinteros MD MSc CHEMISTRY & BLOOD GAS ORDERABLES Final Result Performing Organization Address [facility] de Phone Number [facility] [address] [place] [address] * CALCIUM, IONIZED (07/24/2008 16:41 EST) Calcium, Ionized 1.27 1.12 - 1.32 mmol/L [facility] treatment plant operator [place] [id number] Test performed by Chemistry [facility] 07/24/2008 16:4 1 EST 07/24/2008 16:49 EST Skyler Quinteros MD MSc CHEMISTRY & BLOOD GAS ORDERABLES Final Result Performing Organization Address [facility] de Phone Number [facility] [address] [place] [address] * GLUCOSE, SERUM (07/24/2008 16:00 EST) Glucose, Serum 82 70 - 100 mg/dl [facility] 07/24/2008 16:0 0 EST 07/24/2008 16:36 EST Skyler Quinteros MD MSc CHEMISTRY & BLOOD GAS ORDERABLES Final Result Performing Organization Address [facility] Phone Number [facility] [address] [place] [address] * CALCIUM (07/24/2008 16:00 EST) Calcium 9.2 8.5 - 10.5 mg/dl [facility] Calculated Calcium 10.0 8.5 - 10.5 mg/dl [facility] 07/24/2008 16:0 0 EST 07/24/2008 16:36 EST Skyler Quinteros MD MSc CHEMISTRY & BLOOD GAS ORDERABLES Final Result Performing Organization Address [facility] Phone Number [facility] [address] [place] [address] * (ABNORMAL) ELECTROLYTES (07/24/2008 16:00 EST) Sodium [...] System [facility] de Phone Number [facility] [address] [place] [address] * CALCIUM IONIZED (07/24/2008 16:00 EST) Ionized Calcium Note Sample sent to Lab. [facility] 07/24/2008 16:0 0 EST 07/24/2008 16:36 EST Skyler Quinteros MD MSc CHEMISTRY & BLOOD GAS ORDERABLES Final Result Performing Organization Address [facility] de Phone Number [facility] [address] [place] [address] * (ABNORMAL) ELECTROLYTES (07/24/2008 8:00 EST) Sodium [...] System [facility] de Phone Number [facility] [address] [place] [address] * WRIST 2 VIEWS (07/22/2008 15:15 EST) [...] ORDERABLES Final Result [facility] [address] [place] [address] * UA WITH MICROSCOPIC (07/22/2008 12:00 EST) Color, UA Yellow [facility] Clarity, UA Clear [facility] Glucose, UA Norm NORM [facility] Bilirubin, UA Neg [facility]G [facility] Ketones, UA Neg NEG [facility] Specific [place], Urine 1.010 1.005 - 1.02 [facility] [...] ORDERABLES Final Result [facility] [address] [place] [address] * WRIST 2 VIEWS (07/21/2008 20:20 EST) [...]
--- OUTSIDE RECORDS SUMMARY | 2024-07-30 02:59 | XMS_ITS | Encounter Summary ---
Author Organization [facility] Address [address] [place] [address] Care Team Providers Care Campus Ambassador Name Role Phone Unavailable Primary Care Provider Unavailabl e Encounter Details Date Type Department Care Team (Late st Contact Info) Description 07/12/2008 10:23 EST - 07/12/2008 11:59 EST Hospital Encounter [facility] [address] [place] [address] [facility] [address] [place] [address] Discharge Disposition: Auto Discharge Social History Tobacco [...] Visit [facility] Endocrinology - [facility] [address] [place] [address] Wilder Zaidi, DO [address] [facility] [address] [place] [address] Pending Results Name Type Priority [...] PHONE RESULT Final Result Performing Organization Address [facility] Co de Phone Number [facility] [address] [place] [address] * HOLD PURPLE TOP (10/21/2008 17:54 EDT) Hold Purple Top EDTA for hematology will be discarded after 48 hours, differential not available after 12 hours. [facility] 10/21/2008 17:5 4 EDT 10/21/2008 17:54 EDT us Default Emergency MD LAB INFO SERVICE AND SUPPOR T & PHONE RESULT Final Result Performing Organization Address [facility] Co de Phone Number [facility] [address] [place] [address] * HOLD GREEN TOP (10/21/2008 17:54 EDT) Hold Green Top Hold for further testing. Specimen will be held for 5 days. [facility] 10/21/2008 17:5 4 EDT 10/21/2008 17:54 EDT us Default Emergency MD LAB INFO SERVICE AND SUPPOR T & PHONE RESULT Final Result Performing Organization Address [facility] Co de Phone Number [facility] [address] [place] [address] * HOLD BLUE TOP (10/21/2008 17:54 EDT) Hold Blue Top Sample for coagulation will be discarded after 4 hours [facility] 10/21/2008 17:5 4 EDT 10/21/2008 17:54 EDT us Default Emergency MD LAB INFO SERVICE AND SUPPOR T & PHONE RESULT Final Result Performing Organization Address [facility] de Phone Number [facility] [address] [place] [address] * HOLD GREEN TOP (08/13/2008 11:13 EST) Hold Green Top Hold for further testing. Specimen will be held for 5 days. [facility] 08/13/2008 11:1 3 EST 08/13/2008 12:58 EST us Default Emergency MD LAB INFO SERVICE AND SUPPOR T & PHONE RESULT Final Result Performing Organization Address [facility] de Phone Number [facility] [address] [place] [address] * HOLD BLUE TOP (08/13/2008 11:13 EST) Hold Blue Top Sample for coagulation will be discarded after 4 hours [facility] 08/13/2008 11:1 3 EST 08/13/2008 12:58 EST us Default Emergency MD LAB INFO SERVICE AND SUPPOR T & PHONE RESULT Final Result Performing Organization Address [facility] de Phone Number [facility] [address] [place] [address] * PHOSPHORUS (08/13/2008 11:13 EST) Phosphorus 4.4 2.5 - 4.5 mg/dl [facility] 08/13/2008 11:1 3 EST 08/13/2008 12:58 EST us Default Emergency MD CHEMISTRY & BLOOD GAS ORDER LYNDSEY Final Result Performing Organization Address [facility] de Phone Number [facility] [address] [place] [address] * MAGNESIUM (08/13/2008 11:13 EST) Magnesium 1.8 1.7 - 2.8 mg/dl [facility] 08/13/2008 11:1 3 EST 08/13/2008 12:58 EST us Default Emergency MD CHEMISTRY & BLOOD GAS ORDER LYNDSEY Final Result Performing Organization Address [facility] Phone Number [facility] [address] [place] [address] * LIPASE (08/13/2008 11:13 EST) Lipase 97 0 - 250 U/L [facility] 08/13/2008 11:1 3 EST 08/13/2008 12:58 EST us Default Emergency MD CHEMISTRY & BLOOD GAS ORDER LYNDSEY Final Result Performing Organization Address [facility] Phone Number [facility] [address] [place] [address] * (ABNORMAL) SCREENING GLUCOSE (08/13/2008 11:13 EST) Glucose, Screening 68(L) 70 - 100 mg/dl [facility] 08/13/2008 11:1 3 EST 08/13/2008 12:58 EST us Default Emergency MD CHEMISTRY & BLOOD GAS ORDER LYNDSEY Final Result Performing Organization Address [facility] Phone Number [facility] [address] [place] [address] * CREATININE (08/13/2008 11:13 EST) Creatinine 0.90 0.7 - 1.5 mg/dl [facility] GFR, Calculated >60 ml/min/1.7 3m2 [facility] 08/13/2008 11:1 3 EST 08/13/2008 12:58 EST us Default Emergency MD CHEMISTRY & BLOOD GAS ORDER LYNDSEY Final Result Performing Organization Address [facility] Phone Number [facility] [address] [place] [address] * BUN (08/13/2008 11:13 EST) BUN 17 10 - 26 mg/dl [facility] 08/13/2008 11:1 3 EST 08/13/2008 12:58 EST us Default Emergency MD CHEMISTRY & BLOOD GAS ORDER LYNDSEY Final Result Performing Organization Address [facility] de Phone Number [facility] [address] [place] [address] * CALCIUM (08/13/2008 11:13 EST) Calcium 9.5 8.5 - 10.5 mg/dl [facility] Calculated Calcium 9.3 8.5 - 10.5 mg/dl [facility] 08/13/2008 11:1 3 EST 08/13/2008 12:58 EST us Default Emergency MD CHEMISTRY & BLOOD GAS ORDER LYNDSEY Final Result Performing Organization Address [facility] de Phone Number [facility] [address] [place] [address] * LIVER FUNCTION TESTS (08/13/2008 11:13 EST) [...] ORDER LYNDSEY Final Result Performing Organization Address [facility] Co de Phone Number [facility] [address] [place] [address] * (ABNORMAL) ELECTROLYTES (08/13/2008 11:13 EST) Pathologist [facility] Sodium 153(H) 136 - 145 mEq/L [facility] Potassium 4.3 3.5 - 5.0 mEq/L [facility] Chloride 113(H) 96 - 110 mEq/L [facility] CO2 26 24 - 32 mEq/L [facility] 08/13/2008 11:1 3 EST 08/13/2008 12:58 EST [facility] Emergency MD CHEMISTRY & BLOOD GAS ORDER LYNDSEY Final Result Performing Organization Address [facility] de Phone Number [facility] [address] [place] [address] * (ABNORMAL) HEMAGRAM AND DIFFERENTIAL (08/13/2008 11:13 EST) [facility] WBC 2.32(L) 4.0 - 10.4 K/cmm [facility] [...] ORDERA BLES Final Result Performing Organization Address [facility] Co de Phone Number [facility] [address] [place] [address] * (ABNORMAL) TESTOSTERONE (07/12/2008 10:44 EST) Testosterone, Total 28(L) 241 - 827 ng/dL [facility] 07/12/2008 10:4 4 EST 07/12/2008 11:37 EST Skyler Edwards [facility] CHEMISTRY & BL OOD GAS ORDERABLES Final Result Performing Organization Address [facility] Co de Phone Number [facility] [address] [place] [address] * T4 FREE (07/12/2008 10:44 EST) Free T4 1.7 0.8 - 1.8 ng/dL [facility] 07/12/2008 10:4 4 EST 07/12/2008 11:37 EST Skyler Edwards [facility] CHEMISTRY & BL OOD GAS ORDERABLES Final Result Performing Organization Address [facility] Co de Phone Number [facility] [address] [place] [address] * BASIC METABOLIC PANEL (07/12/2008 10:44 EST) [...] 4 EST 07/12/2008 11:37 EST Skyler Edwards [facility] CHEMISTRY & BL OOD GAS ORDERABLES Final Result Performing Organization Address [facility] Co de Phone Number [facility] [address] [place] [address] documented in this encounter Visit Diagnoses Not on filedocumented in this encounter
--- OUTSIDE RECORDS SUMMARY | 2024-07-30 02:59 | XMS_ITS | Encounter Summary ---
Author Organization [facility] Address [address] [place] [address] Care Team Providers Care Coke Production Heater Name Role Phone Corin Skinner MD Primary Care Provider Encounter Details Date Type Department Care Team (Late st Contact Info) Description 08/13/2008 Office Visit [facility] - Maple conversion [address] [place] [address] Slava Pineda MD Social History Tobacco Use [...] Addenda for MIGUEL ANGEL BURGOS JR VisitID: [id number] Date: 08/13/2008 08/13/2008 10:30 Dr. Amaro refers [...] grand mal seizure. ). No fever. Treatment TANK ERECTOR: None. PAST HX: (traumatic brain injury, seizures). [...] 5 mL normal saline; (right FA by WOMEN'S STUDIES PROFESSOR, rainbow to lab (first attempt unsuccessful by WOMEN'S STUDIES PROFESSOR in right AC)). --1259 Nyasia Morelos R.N., [place] IV bag #1 of 500 mL NS; rate = wide open. --1441 Rachel Reynolds R.N., [place] IV fluids discontinued. IV bag #1. INTAKE: 500 mL. --1545 Lucille Carlson R.N.. DISPOSITION / DISCHARGE Report was given (Latrice ROMERO). Transported [facility] stret[facility] with IV. Admitted to pediatrics. --1546 Lucille [...] [facility] [address] [place], [place] [id number] Wilder Zaidi, 62 [facility] [address] [place] [address] documented as of this encounter Visit Diagnoses Not on filedocumented in this encounter Care Teams Coke Production Heater Relationship Specialty Start Date End Date Corin Skinner MD [address] [place] [phone] PCP - General 10/24/08 08/21/09 documented as of this encounter
--- OUTSIDE RECORDS SUMMARY | 2024-07-30 03:00 | XMS_ITS | Encounter Summary ---
Author Organization [facility] Address [address] [place] [address] Care Team Providers Care Artificial Insemination Technician Name Role Phone Unavailable Primary Care Provider Unavailabl e Encounter Details Date Type Department Care Team (Late st Contact Info) Description 07/03/2008 16:20 EST - 07/05/2008 11:59 EST Hospital Encounter [facility] [address] [place] [address] Jodi Parr MD [address] [facility] [address] [place] [phone] Arcadio Gamboa MD [address] [facility] [address] [place] [phone] Discharge Disposition: Home-Health Care Svc Social History [...] 12/13/2008 2321 EDT HISS DISCHARGE SUMMARY ADDRESS: [address] [place] [address] PHONE: [phone] ATTENDING PHYSICIAN: JODI PARR MD ADDRESS: [address] [place] [address] PHONE: [phone] REFERRING PHYSICIAN: DOCTOR MARGARITA MD ADDRESS: PHONE: [...] home health services - Nursing, PT, OT, TRESTLE MECHANIC ALLERGIES: The following allergies were reported by [...] 12) POTASSIUM CHLORIDE / (kcl ext-rel tab (senior living)) 20MEQ EXTENDED RELEASE TABLET, 3 TIMES A DAY, BY MOUTH MEDICATIONS YOU WERE TAKING PRIOR TO ADMISSION THAT SHOULD BE STOPPED: NONE HERBAL REMEDIES, NUTRITIONAL SUPPLEMENTS, AND XUYQ-[id number]-[id number] MEDICATIONS that have not been prescribed by a physician may have significant adverse side effect or may interfere with the medications that have been prescribed for you. If you are taking herbal remedies, nutritional supplements, or kjdk-jvd-bumwivc medications you are strongly encouraged to discontinue [...] status change was due to seizure or SYSTEM SAFETY MANAGER infection. Miguel Angel was continued on home [...] follow up with Dr. Edwards on 07/11 [facility]: Previously followed by: [facility] __ Initial call by: _Voice mail to Agnes on 07/04/08 _ AGENCY: [facility] [phone] fax [phone] cc: Doctor Demarco at [facility] END OF REPORT D: YAN KHAN MD P - ZOHDocument ID: [id number] documented in this encounter Discharge Disposition Disposition Code Departure Means Destination Home-Health Care Svc documented in this encounter Consult Notes * cL Cheng MD - 07/05/2008 0000 EST INPATIENT [...] Cheng MD P - MH Job ID: [id number] Document ID: [id number] cc: MD Yan Walker MD Christa M [...] status. I doubt this is related to SYSTEM SAFETY MANAGER infection or other systemic infection, especially [...] Lc Cheng MD P - Job ID: [id number] Document ID: [id number] cc: MD Corin Walker MD Christa M Zehle, MD documented in this encounter Plan of Treatment Upcoming Encounters Date Type Department Care Team (Late st Contact Info) Description 10/01/2024 13:40 EDT Office Visit [facility] Endocrinology - [facility] [address] [place] [address] Djeuan Wilder Valencia, DO [address] [place] [address] documented as of this encounter [...] Organization Address [facility] de Phone Number [facility] [address] [place] [address] * ELECTROLYTES (07/04/2008 8:15 EST) Sodium 144 136 - 145 mEq/L [facility] Potassium 3.8 3.5 - 5.0 mEq/L [facility] Chloride 107 96 - 110 mEq/L [facility] CO2 24 24 - 32 mEq/L [facility] 07/04/2008 8:15 EST 07/04/2008 8:44 EST us Jodi Parr MD CHEMISTRY & BLOOD GAS ORDERABLE S Final Result Performing Organization Address [facility] Phone Number [facility] [address] [place] [address] * (ABNORMAL) ELECTROLYTES (07/03/2008 20:00 EST) Sodium [...] Organization Address [facility] de Phone Number [facility] [address] [place] [address] * CULTURE IF UA POSITIVE (07/03/2008 18:45 EST) Culture if Indicated Culture not indicated by urinalysis results. [facility] 07/03/2008 18:4 5 EST 07/03/2008 19:53 EST us Jodi Parr MD MICROBIOLOGY - GENERAL ORDERABL ES Final Result Performing Organization Address [facility] de Phone Number [facility] [address] [place] [address] * DRUG SCREEN 6 (07/03/2008 18:45 EST) Pathologist [facility] Amphetamine Screen, Urine Negative Screen Suitable for [...] Organization Address [facility] de Phone Number [facility] [address] [place] [address] * UA REFLEX (07/03/2008 18:45 EST) Pathologist [facility] UA Billing Microscopic not indicated. [facility] 07/03/2008 18:4 5 EST 07/03/2008 19:53 EST Jodi Parr MD URINALYSIS ORDERABLES Final Res ult Performing Organization Address [facility] Co de Phone Number [facility] [address] [place] [address] * (ABNORMAL) URINALYSIS, CHEMICAL (07/03/2008 18:45 EST) Pathologist [facility] Color, UA Yellow [facility] Clarity, UA Clear [facility] Glucose, UA Norm NORM [facility] Bilirubin, UA Neg NEG [facility] Ketones, UA Neg NEG [facility] Specific [place], Urine <1.005(L) 1.005 - 1.02 [facility] [...] ORDERABLES Final Res ult Performing Organization Address [facility] Co de Phone Number [facility] [address] [place] [address] * BACTERIAL CULTURE, BLOOD (07/03/2008 16:00 EST) Specimen Description Blood Right Groin [facility] Result No growth [facility] Report Status Final [id number] [facility] 07/03/2008 16:0 0 EST 07/03/2008 17:30 EST us Jodi Parr MD MICROBIOLOGY - GENERAL ORDERABL ES Final Result Performing Organization Address [facility] de [place] [address] * (ABNORMAL) BLOOD GAS, EG6 ISTAT (07/03/2008 [...] [facility] Sample Type ARTERIAL [facility] ranch hand supervisor ID [id number] Test Performed by Respiratory [facility] 07/03/2008 15:0 5 EST 07/04/2008 19:29 EST us Jodi Parr MD CHEMISTRY & BLOOD GAS ORDERABLE S Final Result [facility] [address] [place] [address] documented in this encounter Visit Diagnoses Not on filedocumented in this encounter
--- OUTSIDE RECORDS SUMMARY | 2024-07-30 03:00 | XMS_ITS | Encounter Summary ---
Author Organization [facility] Address [address] [place] [address] Care Team Providers Care Department Of Mathematics Chair Name Role Phone Corin Skinner MD Primary Care Provider [phone] Encounter Details Date Type Department Care Team (Late st Contact Info) Description 07/11/2008 Before PRISM Converted Visit (Maple) [facility] - Maple conversion [address] [place] [address] Lc Cheng MD [address] [facility], [address] [place] [address] Social History Tobacco Use Types [...] Edwards MD [facility] [address] [place] [address] Edwards; The father of 18-year-old [...] Lc Cheng MD - CJDalton Job ID: [id number] Doc ID: [id number] cc: MD Skyler Singh MD documented in this encounter Plan of Treatment Upcoming Encounters Date Type Department Care Team (Late st Contact Info) Description 10/01/2024 13:40 EDT Office Visit [facility] Endocrinology - [facility] [address] [place] [address] Wilder Zaidi, DO [address] [facility] [address] [place] [address] documented as of this encounter Visit Diagnoses Not on filedocumented in this encounter Care Teams Department Of Mathematics Chair Relationship Specialty Start Date End Date Corin Skinner MD [address] [place] [phone] PCP - General 10/24/08 08/21/09 documented as of this encounter
--- OUTSIDE RECORDS SUMMARY | 2024-07-30 03:00 | XMS_ITS | Encounter Summary ---
Author Organization [facility] Address [address] [place] [address] Care Team Providers Care Pipe Racker Name Role Phone Unavailable Primary Care Provider Unavailabl e Encounter Details Date Type Department Care Team (Late st Contact Info) Description 07/11/2008 10:40 EST Hospital Encounter [facility] [address] [place] [address] Skyler Edwards, [facility] [address] [place] [phone] Lc Cheng MD 111 [facility], [address] [place] [phone] Social History Tobacco Use Types Packs/Day Years [...] 10/01/2024 13:40 EDT Office Visit [facility] Endocrinology - [address] [address] Wilder Zaidi, DO [address] [address] documented as of this encounter Visit Diagnoses Not on filedocumented in this encounter
--- OUTSIDE RECORDS SUMMARY | 2024-07-30 03:00 | XMS_ITS | Encounter Summary ---
Author Organization [facility] Address [address] [place] [address] Care Team Providers Care Skin Care Consultant Name Role Phone Unavailable Primary Care Provider Unavailabl e Encounter Details Date Type Department Care Team (Late st Contact Info) Description 06/11/2008 11:00 EST - 06/11/2008 11:59 EST Hospital Encounter [facility] [address] [place] [address] [facility] [address] [place] [address] Discharge Disposition: Auto Discharge Social History Tobacco [...] Office Visit [facility] Endocrinology - [facility] [address] [place] [address] Wilder Zaidi, DO [address] [facility] [address] [place] [address] documented as of this encounter [...] PF4 ORDERABLES Final Result Performing Organization Address [facility] de Phone Number [facility] [address] [place] [address] * (ABNORMAL) PROTIME (07/03/2008 16:00 EST) Pro [...] PF4 ORDERABLES Final Result Performing Organization Address [facility] de Phone Number [facility] [address] [place] [address] * (ABNORMAL) BLOOD GAS, G3 ISTAT (07/03/2008 15:23 EST) pH, i-STAT 7.22(L) 7.35 - 7.45 [facility] pCO2, i-STAT 63(H) 35 - 45 mmHg [facility] pO2, i-STAT 33(L) 85 - 100 mmHg [facility] TCO2, i-STAT 27 mEq/L [facility] O2 Saturation 51 % TRUE [facility] Base Deficit 4 [facility] Sample Type NOT GIVEN [facility] nuclear security officer [place] [id number] Test performed by Chemistry [facility] 07/03/2008 15:2 3 EST 07/03/2008 15:28 EST us Provider Unknown MD CHEMISTRY & BLOOD GAS ORDERA BLES Final Result Performing Organization Address [facility] Co de Phone Number [facility] [address] [place] [address] * (ABNORMAL) LACTIC ACID (07/03/2008 15:05 EST) Pathologist [facility] Lactic Acid 3.0(H) 0.7 - 2.1 mmol/L [facility] 07/03/2008 15:0 5 EST 07/03/2008 15:19 EST us Default Emergency CHEMISTRY & BLOOD GAS ORDER LYNDSEY Final Result Performing Organization Address [facility] de Phone Number [facility] [address] [place] [address] * (ABNORMAL) GLUCOSE, SERUM (07/03/2008 15:05 EST) Pathologist [facility] Glucose, Serum 69(L) 70 - 100 mg/dl [facility] Comment:Heparinized plasma. 07/03/2008 15:0 5 EST 07/03/2008 15:13 EST us Default Emergency CHEMISTRY & BLOOD GAS ORDER LYNDSEY Final Result Performing Organization Address [facility] de Phone Number [facility] [address] [place] [address] * CREATININE (07/03/2008 15:05 EST) Creatinine 0.80 0.7 - 1.5 mg/dl [facility] Comment:Heparinized plasma. GFR, Calculated >60 ml/min/1.7 3m2 [facility] Comment:Heparinized plasma. 07/03/2008 15:0 5 EST 07/03/2008 15:13 EST Default Emergency MD CHEMISTRY & BLOOD GAS ORDER LYNDSEY Final Result Performing Organization Address [facility] Phone Number [facility] [address] [place] [address] * BUN (07/03/2008 15:05 EST) BUN 14 10 - 26 mg/dl [facility] Comment:Heparinized plasma. 07/03/2008 15:0 5 EST 07/03/2008 15:13 EST Default Emergency MD CHEMISTRY & BLOOD GAS ORDER LYNDSEY Final Result Performing Organization Address [facility] Phone Number [facility] [address] [place] [address] * ELECTROLYTES (07/03/2008 15:05 EST) Sodium 145 [...] Final Result Performing Organization Address [facility] de Phone Number [facility] [address] [place] [address] * (ABNORMAL) HEMAGRAM AND DIFFERENTIAL (07/03/2008 15:05 [...] BLES Final Result [facility] [address] [place] [address] * PORTABLE CHEST 1 VIEW (07/03/2008 14:52 [...] Note Leticia Solomon MD / Marlene Mensah, [facility] - 11/21/2008 Patient has cough, shortness of [...] agree with the findings. Shola Wolf MD [facility] DI[facility]NOSTIC [facility] Final Result * ELECTROLYTES (06/11/2008 11:11 EST) Sodium 140 136 - 145 mEq/L [facility] Potassium 4.1 3.5 - 5.0 mEq/L [facility] Chloride 100 96 - 110 mEq/L [facility] CO2 24 24 - 32 mEq/L [facility] 06/11/2008 11:1 1 EST 06/11/2008 11:13 EST Skyler Edwards [facility] CHEMISTRY & BL OOD GAS ORDERABLES Final Result [facility] [address] [place] [address] documented in this encounter Visit Diagnoses Not on filedocumented in this encounter
--- OUTSIDE RECORDS SUMMARY | 2024-07-30 03:00 | XMS_ITS | Encounter Summary ---
Author Organization [facility] Address [address] [place] [address] Care Team Providers Care Legend Maker Name Role Phone Corin Skinner MD Primary Care Provider +1- [phone] Encounter Details Date Type Department Care Team (Late st Contact Info) Description 07/11/2008 Before PRISM Converted Visit (Maple) [facility] - Maple conversion [address] [place] [address] Skyler Edwards [facility] [address] [place] [phone] Social History Tobacco Use Types Packs/Day Years [...] 07/11/2008 July 11, [address] [facility] [address] [place] [address], [address] [place] [address] Demarco, I had the pleasure [...] the family. They have hired a new REIMBURSEMENT REP who is a male and are hoping [...] by the visiting nurse. Mother knows that [facility] has an order for these injections [...] Skyler Edwards MD Division of Pediatric Endocrinology [phone] - Skyler Edwards MD P - ROXI Job ID: [id number] Doc ID: [id number] cc: MD Yan Singh MD documented in this encounter Plan of Treatment Upcoming Encounters Date Type Department Care Team (Late st Contact Info) Description 10/01/2024 13:40 EDT Office Visit [facility] Endocrinology - [facility] [address] [place], [place] [phone] Wilder Zaidi, DO [address] [facility] [address] [place] [phone] documented as of this encounter Visit Diagnoses Not on filedocumented in this encounter Care Teams Legend Maker Relationship Specialty Start Date End Date Corin Skinner MD [address] [place] [phone] PCP - General 10/24/08 08/21/09 documented as of this encounter
--- OUTSIDE RECORDS SUMMARY | 2024-07-30 03:00 | XMS_ITS | Encounter Summary ---
Author Organization [facility] Address [address] [place] [address] Care Team Providers Care Requirements Engineer Name Role Phone Corin Skinner MD Primary Care Provider +1- [phone] Encounter Details Date Type Department Care Team (Late st Contact Info) Description 07/03/2008 Office Visit [facility] - [place] conversion [address] [place] [address] Arcadio Gamboa MD [address] [facility], Level 1 [place] [phone] Social History Tobacco Use Types Packs/Day Years [...] Addenda for MIGUEL ANGEL MASON JR VisitID: [id number] Date: 07/03/2008 07/03/2008 12:16 DR. MACKAY PT [...] --1527 Lucille Carlson R.N. (Paediatric Residents and Machine Design Engineer at bedside). --1528 Lucille Carlson R.N. 16 fr morse catheter placed using sterile technique and attached to bedside drainage bag, with return of yellow-colored clear urine. The patient tolerated procedure well (inserted by Paediatric Resident Judy Clarke). --1537 Lucille Carlson R.N. (Patient appears more responsive). --1538 Lucille Carlson R.N. Patient transported to [facility] by stretcher with Best Teacher. --1613 Lucille Carlson R.N. VANCOMYCIN 1 gram [...] IV access in left inner wrist by UMBRELLA REPAIRER). --151 Lucille Carlson R.N. IV Site #2. IV access: left foot. IV started in ED; (22g IV access by UMBRELLA REPAIRER). --1522 Lucille Carlson R.N. Blood samples drawn. [...] was given (Kp). Transported via stretcher by Best Teacher (NS running STAT, 1gm Vancomycin running via [...] Office Visit [facility] Endocrinology - [facility] [address] [place], [place] [phone] Wilder Zaidi, [address] [facility] [address] [place] [address] documented as of this encounter Visit Diagnoses Not on filedocumented in this encounter Care Teams Requirements Engineer Relationship Specialty Start Date End Date Corin Skinner MD [address] [place] [phone] PCP - General 10/24/08 08/21/09 documented as of this encounter
--- OUTSIDE RECORDS SUMMARY | 2024-07-30 03:02 | XMS_ITS | Encounter Summary ---
Author Organization [facility] Address [address] [place] [address] Care Team Providers Care Wire Annealer Name Role Phone Unavailable Primary Care Provider Unavailabl e Encounter Details Date Type Department Care Team (Late st Contact Info) Description 04/11/2008 14:00 EDT - 04/13/2008 11:59 EDT Hospital Encounter [facility] [address] [place] [address] Skyler Quinteros MD [facility] [address] [facility], [address] [phone] Christopher Ga MD [address] [place] [phone] Discharge Disposition: Home-Health Care Svc Social [...] - 01/17/20092037 EDT HISS DISCHARGE SUMMARY ADDRESS: [address] [place] [address] PHONE: [phone] ATTENDING PHYSICIAN: SKYLER QUINTEROS MD ADDRESS: [place] [address] [address] [place] [address] PHONE: [phone] REFERRING PHYSICIAN: JOSEY SKINNER MD ADDRESS: [facility] [address] [place] [address] PHONE: [phone] ADMISSION DATE: 04/11/08 SERVICE: PED. MEDICINE TRANSFER TO IP: DISCHARGE DATE: 04/13/08 SERVICE: PED. MEDICINE CHIEF COMPLAINT / REASON FOR ADMISSION: seizure PRINCIPAL/FINAL DIAGNOSIS: Seizure COMPLICATIONS/CO-MORBID CONDTITIONS: Panhypopitutarism Central diabetes insipitus Adrenal isufficiency Hypothyroidism Cortical blindness Developmental delay CONDITION AT DISCHARGE: Stable Improved DISPOSITION AT DISCHARGE: Home with home health services - Nursing, PT, OT, REAL TIME ANALYST ALLERGIES: The following allergies were reported by [...] STOPPED: NONE HERBAL REMEDIES, NUTRITIONAL SUPPLEMENTS, AND [id number] MEDICATIONS that have not been prescribed by a physician may have significant adverse side effect or may interfere with the medications that have been prescribed for you. If you are taking herbal remedies, nutritional supplements, or [id number]-[id number] medications you are strongly encouraged to discontinue [...] lasting about 30s. He was taken to [facility] and was hypotensive and hypothermic. His vitals improved after he was bolused and given 100mg of Solucortef IV. He was also given IM ceftriaxone x1. [facility] 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 His seizure threashold was most likely lowered by a viral infection, disurbed sleep pattern, or other unknown entity. Started Keppra per Neuro recommendations. He has an appt to see a neurologist at [facility] in May. Disturbed sleep and and apparent [...] lytes as an outpatient 04/14. Nutrition: the tube trailer filler were consulted regarding Miguel Angel's very restrictive calorie restriction and recommended a new diet plan of 1800 kcal/day and 75g protien. They are happy to see Miguel Angel with his parents as an outpatient at [facility] as they were unable to meet [...] Follow up with your new neurologist at [facility] Follow up with Dr. King in [place], endocrinology Follow up with Dr. Skinner at 3:30PM HOME HEALTH CARE REFERRAL SERVICES: Previously followed by: [facility] __ Initial call by: _Jazz Bush on 04/12/08_@ __:__ Spoke with: _Jyothi in intake [phone] fax [phone] The primary care physician has been notified of the home health referral and has given verbal permission for all orders and/or clarifications pursuant to this referral to be managed by the primary care physician's office. Marta Pisano (Licensed Master Social Worker) to follow as outpt through [place] office cc: Patient chart MD JOSEY SCHMITZ MD Dr. Larrow at [phone] Pediatric Neurology at [facility] END OF REPORT D: YAN KHAN MD P - ZOHDocument ID: [id number] documented in this encounter Discharge Disposition Disposition Code Departure Means Destination Home-Health Care [facility] documented in this encounter Consult Notes * [...] frustration with the care they received at [facility] but apparently had made a spontaneous [...] his early February admission here and at [facility]. There was no fever but he [...] that there is a follow-up appointment at [facility] Neurology and perhaps that will be [...] Lc Cheng MD P - Job ID: [id number] Document ID: [id number] cc: MD Yan Walker MD Paul Rosenau, MD documented in this encounter Plan of Treatment Upcoming Encounters Date Type Department Care Team (Late st Contact Info) Description 10/01/2024 13:40 EDT Office Visit [facility] Endocrinology - [place] [address] [place] [address] Dejuan Wilder Valencia, DO [address] [place] [phone] documented as of this [...] GAS ORDERABLES Final Result Performing Organization Address [facility] de Phone Number [facility] [address] [place] [address] * (ABNORMAL) ELECTROLYTES (04/12/2008 18:38 EDT) Sodium [...] GAS ORDERABLES Final Result Performing Organization Address [facility] de Phone Number [facility] [address] [place] [address] * CREATININE (04/12/2008 10:29 EDT) Creatinine 0.60 0.6 - 1.2 mg/dl [facility] GFR, Calculated Age <18 ml/min/1.7 3m2 [facility] 04/12/2008 10:2 9 EDT 04/12/2008 10:30 EDT Skyler Quinteros MD MSc CHEMISTRY & BLOOD GAS ORDERABLES Final Result Performing Organization Address [facility] de Phone Number [facility] [address] [place] [address] * BUN (04/12/2008 10:29 EDT) BUN 13 8 - 21 mg/dl [facility] 04/12/2008 10:2 9 EDT 04/12/2008 10:30 EDT Skyler Quinteros MD MSc CHEMISTRY & BLOOD GAS ORDERABLES Final Result Performing Organization Address [facility] de Phone Number [facility] [address] [place] [address] * (ABNORMAL) ELECTROLYTES (04/12/2008 10:29 EDT) Sodium 129(L) 136 - 145 mEq/L [facility] Potassium 3.9 3.5 - 5.0 mEq/L [facility] Chloride 94(L) 96 - 110 mEq/L [facility] CO2 25 24 - 32 mEq/L [facility] 04/12/2008 10:2 9 EDT 04/12/2008 10:30 EDT Skyler Quinteros MD MSc CHEMISTRY & BLOOD GAS ORDERABLES Final Result Performing Organization Address [facility] de Phone Number [facility] [address] [place] [address] * (ABNORMAL) HEMAGRAM AND DIFFERENTIAL (04/12/2008 10:29 EDT) Pathologist [facility] WBC 3.12(L) 4.6 - 11.2 K/cmm [facility] [...] [facility] Neutrophils 0.87 K/cmm [facility] Bands 0.03 K/cmm [facility] [...] PROBE ORDERABLES Final Result Performing Organization Address [facility] de Phone Number [facility] [address] [place] [address] * CREATININE (04/11/2008 16:00 EDT) Pathologist [facility] Creatinine 0.81 0.6 - 1.2 mg/dl [facility] GFR, Calculated Age <18 ml/min/1.7 3m2 [facility] 04/11/2008 16:0 0 EDT 04/11/2008 17:27 EDT Skyler Quinteros MD MSc CHEMISTRY & BLOOD GAS ORDERABLES Final Result Performing Organization Address [facility] de Phone Number [facility] [address] [place] [address] * BUN (04/11/2008 16:00 EDT) BUN 17 8 - 21 mg/dl [facility] 04/11/2008 16:0 0 EDT 04/11/2008 17:27 EDT Skyler Quinteros MD MSc CHEMISTRY & BLOOD GAS ORDERABLES Final Result Performing Organization Address [facility] de Phone Number [facility] [address] [place] [address] * (ABNORMAL) ELECTROLYTES (04/11/2008 16:00 EDT) Sodium 130(L) 136 - 145 mEq/L [facility] Potassium 4.1 3.5 - 5.0 mEq/L [facility] Chloride 95(L) 96 - 110 mEq/L [facility] CO2 23(L) 24 - 32 mEq/L [facility] 04/11/2008 16:0 0 EDT 04/11/2008 17:27 EDT us Skyler Quinteros MD MSc CHEMISTRY & BLOOD GAS ORDERABLES Final Result [facility] [address] [place] [address] documented in this encounter Visit Diagnoses Not on filedocumented in this encounter
--- OUTSIDE RECORDS SUMMARY | 2024-07-30 03:02 | XMS_ITS | Encounter Summary ---
Author Organization [facility] Address [address] [place] [address] Care Team Providers Care English Tutor Name Role Phone Corin Skinner MD Primary Care Provider +1- [phone] Encounter Details Date Type Department Care Team (Late st Contact Info) Description 04/11/2008 Office Visit [facility] [place] conversion [address] [place] [address] Nurse, Emergency Room, Social History Tobacco Use Types Packs/Day Years Used Date Smoking Tobacco: Never Assessed Sex and Gender Information Value Date Recorded Sex Assigned at Not on file Legal Sex Male 18:35 EST Gender Identity Not on file Sexual Orientation Not on file documented as of this encounter Progress Notes * Ricki, Conv Log Cut Off Sawyer - 08/16/2009 1849 EST Department - Physician Summary Registration Date/Time: 04/11/2008 6:00 Addenda for MIGUEL ANGEL MASON JR VisitID: [id number] Date: 04/11/2008 04/11/2008 4:46 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 POSTICTAL, INCONTINENT, RECTAL TEMP: 89 F, NOW 89 F. HX: DM, BLOOD CX, WBC 1.8, [id number]. VS: 98 113/64 16. signed by Wilder [...] today. Pain level: unable to quantify. Treatment WEB OPERATIONS SPECIALIST: (see transfer paperwork). PAST HX: Diabetes mellitus (insipidus). (traumatic brain injury, seizure disorder). SOCIAL HX: Nonsmoker. No alcohol use. The nutritional risk assessment revealed no deficiencies. No report of abuse. Arrived by EMS. Historian: EMS. --634 Rosy Ramírez R.N. (Father states when at [place] 2 months ago, it was discovered that [...] Office Visit [facility] Endocrinology - [place] [address] [place] [address] Wilder Zaidi, DO [address] [place] [phone] documented as of this encounter Visit Diagnoses Not on filedocumented in this encounter Care Teams English Tutor Relationship Specialty Start Date End Date Corin Skinner MD [address] [place] [phone] PCP - General 10/24/08 08/21/09 documented as of this encounter
--- OUTSIDE RECORDS SUMMARY | 2024-07-30 03:02 | XMS_ITS | Encounter Summary ---
Author Organization [facility] Address [address] [place] [address] Care Team Providers Care Bisque Cleaner Name Role Phone Unavailable Primary Care Provider Unavailabl e Encounter Details Date Type Department Care Team (Late st Contact Info) Description 02/09/2008 2:41 EDT - 02/12/2008 11:[address] [facility] Unit [address] [place] [address] Jodi Christie MD [address] [facility], [place] [address] [place] [id number] Yossi Murphy MD [address] [facility], [address] [place] [address] Discharge Disposition: Another Health Care Institution Not [...] 01/13/2009 1403 EDT HISS DISCHARGE SUMMARY ADDRESS: [address] [place] [address] PHONE: [phone] ATTENDING PHYSICIAN: OJDI CHRISTIE MD ADDRESS: [address] [address] PHONE: [phone] REFERRING PHYSICIAN: YAN GOEL MD ADDRESS: [address] [place] [address] PHONE: [phone] ADMISSION DATE: 02/09/08 SERVICE: PED. MEDICINE TRANSFER [...] STOPPED: NONE HERBAL REMEDIES, NUTRITIONAL SUPPLEMENTS, AND [id number] MEDICATIONS that have not been prescribed by a physician may have significant adverse side effect or may interfere with the medications that have been prescribed for you. If you are taking herbal remedies, nutritional supplements, or fuvt-lbl-[id number] medications you are strongly encouraged to discontinue [...] a history of panhypopituitarism who came to [facility] ER on 02/09/08 due to altered mental status. One week prior the patient had been seen at the [facility] ER following some seizure like activity [...] symptoms on 02/08 he was taken to [facility] where he had a Temperature of [...] continued to express interest in transfer to [place] and transport was arranged. He was transferred to [facility] on 02/12/08 by [facility]. Recommendations from Endocrinology 02/11 were to decrease [...] JESSIKA RIVERA MD P - ZOHDocument ID: [id number] documented in this encounter Discharge Disposition Disposition [...] panhypopituitarism, who presentedon February 09, 2008, to [facility] ER with severe hyponatremia and mental status [...] DISPOSITION Miguel Angel will be transferred to [place] [address] today. His family wishes to seek transfer to [facility], and those investigations are occurring at the time of transfer. CONDITION AT DISCHARGE Stable. Supervising Physician Signed by Otilio Castro MD 02/09/2008 15:43 Wilder Bejarano MD Otilio Castro MD - Wilder Bejarano MD P - CSS Job ID: [id number] Document ID: [id number] cc: MD Otilio Alcantar MD Daniel W [...] the parents have insisted on transfer to [facility]; arrival of transport is expected imminently. I would recommend that he continue on a relatively modest dose of [id number] mg b.i.d., in part because of his [...] Cheng MD P - SS Job ID: [id number] Document ID: [id number] cc: MD Yan Walker MD Christa M Zehle, MD * Lc Cheng MD - 02/11/2008 0000 EDT INPATIENT CONSULTATION Admission Date: 02/09/2008 Date of consultation: 02/11/2008 This is an inpatient pediatric neurologic follow-up consultation/reconsultation on this [id number] left hemiparesis, panhypopituitarism, craniopharyngioma resection, new onset [...] Lc Cheng MD P - Job ID: [id number] Document ID: [id number] cc: MD Yan Walker MD Christa M [...] treatment for that including CT at a [facility], was started on phenytoin. Since that time, he has had some decreased responsivenessand balance (phenytoin 100 mg t.i.d.). He came in because of mental status change and has been hospitalized here for the last three days and had correction of what was found to be hyponatremia and [facility] of his usual DDAVP regime along with [...] his step-mother. His step-mother is his principle abstract manager. There is no family history of epilepsy. [...] Cheng MD A - SADE Job ID: [id number] Document ID: [id number] cc: MD Rui Walker III, MD Daniel W Larrow, MD Christa M Zehle, MD documented in this encounter Plan of Treatment Upcoming Encounters Date Type Department Care Team (Late st Contact Info) Description 10/01/2024 13:40 EDT Office Visit [facility] Endocrinology - [address] [id number] Wilder Zaidi, [address] [place] [address] documented as of this encounter [...] S Final Result [facility] [address] [place] [address] * (ABNORMAL) BLOOD GAS, G3 ISTAT (02/12/2008 10:45 EDT) pH, i-STAT 7.38 7.35 - 7.45 [facility] pCO2, i-STAT 45 35 - 45 mmHg [facility] pO2, i-STAT 113(H) 85 - 100 mmHg [facility] TCO2, i-STAT 28 mEq/L [facility] O2 Saturation 98 % [facility] Base Excess 1 [facility] Sample Type NOT GIVEN [facility] [place] [id number] Test performed by Chemistry [facility] 02/12/2008 10:4 5 EDT 02/12/2008 10:50 EDT us Jodi Christie MD CHEMISTRY & BLOOD GAS ORDERABLE S Final Result Performing Organization Address [facility] de Phone Number [facility] [address] [place] [address] * (ABNORMAL) GLUCOSE, GLUCOMETER (02/12/2008 10:05 EDT) Glucose, Fingerstick 125(H) 70 - 100 mg/dl [facility] Spiritual Care Coordinator ID [id number] Test Performed by Nursing Services [facility] 02/12/2008 10:0 5 EDT 02/13/2008 3:40 EDT us Jodi Christie MD CHEMISTRY & BLOOD GAS ORDERABLE S Final Result Performing Organization Address [facility] de Phone Number [facility] [address] [place] [address] * (ABNORMAL) BLOOD GAS, G3 ISTAT (02/12/2008 [...] LAB Sample Type NOT GIVEN [facility] [place] [id number] Test performed by Chemistry [facility] 02/12/2008 8:58 EDT 02/12/2008 9:03 EDT us Jodi Christie MD CHEMISTRY & BLOOD GAS ORDERABLE S Final Result Performing Organization Address [facility] de Phone Number [facility] [address] [place] [address] * (ABNORMAL) GLUCOSE, GLUCOMETER (02/12/2008 8:51 EDT) Glucose, Fingerstick 130(H) 70 - 100 mg/dl [facility] Spiritual Care Coordinator ID [id number] Test Performed by Nursing Services [facility] 02/12/2008 8:51 EDT 02/13/2008 3:29 EDT us Jodi Christie MD CHEMISTRY & BLOOD GAS ORDERABLE S Final Result Performing Organization Address [facility]/ZIP Co de Phone Number [facility] [address] [place] [address] * (ABNORMAL) PHOSPHORUS (02/12/2008 8:35 EDT) Phosphorus 5.6(H) 2.7 - 4.7 mg/dl [facility] Comment: Results may be affected due to hemolysis. Slight hemolysis 02/12/2008 8:35 EDT 02/12/2008 8:48 EDT us Jodi Christie MD CHEMISTRY & BLOOD GAS ORDERABLE S Final Result Performing Organization Address [facility] Co de Phone Number [facility] [address] [place] [address] * MAGNESIUM (02/12/2008 8:35 EDT) Magnesium 2.1 1.7 - 2.8 mg/dl [facility] Comment: Results may be affected due to hemolysis. Slight hemolysis 02/12/2008 8:35 EDT 02/12/2008 8:48 EDT Jodi Christie MD CHEMISTRY & BLOOD GAS ORDERABLE S Final Result Performing Organization Address [facility] Co de Phone Number [facility] [address] [place] [address] * CALCIUM (02/12/2008 8:35 EDT) Calcium 9.2 8.5 - 10.5 mg/dl [facility] Comment:Slight hemolysis Calculated Calcium 8.8 8.5 - 10.5 mg/dl [facility] Comment: Results may be affected due to hemolysis. Slight hemolysis 02/12/2008 8:35 EDT 02/12/2008 8:48 EDT Jodi Christie MD CHEMISTRY & BLOOD GAS ORDERABLE S Final Result Performing Organization Address [facility] de Phone Number [facility] [address] [place] [address] * (ABNORMAL) GLUCOSE, GLUCOMETER (02/12/2008 8:17 EDT) Glucose, Fingerstick 53(L) 70 - 100 mg/dl [facility] Spiritual Care Coordinator ID [id number] Test Performed by Nursing Services [facility] 02/12/2008 8:17 EDT 02/13/2008 3:29 EDT Jodi Christie MD CHEMISTRY & BLOOD GAS ORDERABLE S Final Result Performing Organization Address [facility] de Phone Number [facility] [address] [place] [address] * CREATININE (02/12/2008 5:55 EDT) Creatinine 1.10 0.6 - 1.2 mg/dl [facility] Comment:Heparinized plasma. GFR, Calculated Age <18 Heparinize d plasma. ml/min/1.7 3m2 [facility] 02/12/2008 5:55 EDT 02/12/2008 6:21 EDT Jodi Christie MD CHEMISTRY & BLOOD GAS ORDERABLE S Final Result Performing Organization Address [facility] de Phone Number [facility] [address] [place] [address] * BUN (02/12/2008 5:55 EDT) BUN 15 8 - 21 mg/dl [facility] Comment:Heparinized plasma. 02/12/2008 5:55 EDT 02/12/2008 6:21 EDT us Jodi Christie MD CHEMISTRY & BLOOD GAS ORDERABLE S Final Result Performing Organization Address [facility] de Phone Number [facility] [address] [place] [address] * TESTS ADDED BY PHONE (02/12/2008 5:55 EDT) Tests to be added BUN [facility] Who Called [facility] Location Code B5 [facility] 02/12/2008 5:55 EDT 02/12/2008 6:21 EDT us Jodi Christie MD CHEMISTRY & BLOOD GAS ORDERABLE S Final Result Performing Organization Address [facility] de Phone Number [facility] [address] [place] [address] * (ABNORMAL) ELECTROLYTES (02/12/2008 5:55 EDT) Sodium [...] S Final Result Performing Organization Address [facility] de Phone Number [facility] [address] [place] [address] * CORTISOL (02/12/2008 2:05 EDT) Cortisol Wrong tube/speci men type ug/dl [facility] Comment:CANNOT BE RUN ON GRE EN MICROTAINER 02/12/2008 2:05 EDT 02/12/2008 2:17 EDT us Jodi Christie MD CHEMISTRY & BLOOD GAS ORDERABLE S Final Result Performing Organization Address [facility] de Phone Number [facility] [address] [place] [address] * TESTS ADDED BY PHONE (02/12/2008 2:05 EDT) Tests to be added [facility] Who Called [facility] Location Code B5 [facility] 02/12/2008 2:05 EDT 02/12/2008 2:17 EDT us Jodi Christie MD CHEMISTRY & BLOOD GAS ORDERABLE S Final Result Performing Organization Address [facility] Phone Number [facility] [address] [place] [address] * (ABNORMAL) ELECTROLYTES (02/12/2008 2:05 EDT) Sodium 146(H) 136 - 145 mEq/L [facility] Potassium 3.9 3.5 - 5.0 mEq/L [facility] Chloride 108 96 - 110 mEq/L [facility] CO2 27 24 - 32 mEq/L [facility] 02/12/2008 2:05 EDT 02/12/2008 2:17 EDT us Jodi Christie MD CHEMISTRY & BLOOD GAS ORDERABLE S Final Result Performing Organization Address [facility] de Phone Number [facility] [address] [place] [address] * (ABNORMAL) BLOOD GAS, G3 ISTAT (02/11/2008 [...] LAB Sample Type NOT GIVEN [facility] [place] [id number] Test performed by Chemistry [facility] 02/11/2008 22:1 5 EDT 02/11/2008 22:20 EDT us Jodi Christie MD CHEMISTRY & BLOOD GAS ORDERABLE S Final Result Performing Organization Address [facility] de Phone Number [facility] [address] [place] [address] * (ABNORMAL) ELECTROLYTES (02/11/2008 21:50 EDT) Sodium [...] S Final Result Performing Organization Address [facility] de Phone Number [facility] [address] [place] [address] * MR HEAD W/WO CONTRAST (02/11/2008 20:14 [...] ORDERABL ES Final Result Performing Organization Address [facility] de Phone Number [facility] [address] [place] [address] * UA REFLEX (02/11/2008 19:10 EDT) UA Billing Microscopic not indicated. [facility] 02/11/2008 19:1 0 EDT 02/11/2008 19:21 EDT Jodi Christie MD URINALYSIS ORDERABLES Final Res ult Performing Organization Address [facility] de Phone Number [facility] [address] [place] [address] * (ABNORMAL) URINALYSIS, CHEMICAL (02/11/2008 19:10 EDT) Color, UA Straw [facility] Clarity, UA Clear [facility] Glucose, UA Norm NORM [facility] Bilirubin, UA Neg NEG [facility] Ketones, UA Neg NEG [facility] Specific [place], Urine <1.005(L) 1.005 - 1.02 [facility] [...] ORDERABLES Final Res ult Performing Organization Address [facility] de Phone Number [facility] [address] [place] [address] * (ABNORMAL) BLOOD GAS, G3 ISTAT (02/11/2008 [...] LAB Sample Type NOT GIVEN [facility] [place] [id number] Test performed by Chemistry [facility] 02/11/2008 18:4 5 EDT 02/11/2008 18:50 EDT us Jodi Christie MD CHEMISTRY & BLOOD GAS ORDERABLE S Final Result Performing Organization Address [facility] de Phone Number [facility] [address] [place] [address] * CT HEAD WO CONTRAST (02/11/2008 18:44 [...] S Final Result Performing Organization Address [facility] de Phone Number [facility] [address] [place] [address] * CO2 (02/11/2008 18:12 EDT) CO2 25 24 - 32 mEq/L [facility] 02/11/2008 18:1 2 EDT 02/11/2008 18:40 EDT Jodi Christie MD CHEMISTRY & BLOOD GAS ORDERABLE S Final Result Performing Organization Address [facility] de Phone Number [facility] [address] [place] [address] * CHLORIDE (02/11/2008 18:12 EDT) Chloride 107 96 - 110 mEq/L [facility] 02/11/2008 18:1 2 EDT 02/11/2008 18:40 EDT Jodi Christie MD CHEMISTRY & BLOOD GAS ORDERABLE S Final Result Performing Organization Address [facility] de Phone Number [facility] [address] [place] [address] * (ABNORMAL) SODIUM (02/11/2008 18:12 EDT) Sodium 148(H) 136 - 145 mEq/L [facility] 02/11/2008 18:1 2 EDT 02/11/2008 18:40 EDT Jodi Christie MD CHEMISTRY & BLOOD GAS ORDERABLE S Final Result Performing Organization Address [facility]/ZIP Co de Phone Number [facility] [address] [place] [address] * CREATININE (02/11/2008 18:12 EDT) Pathologist [facility] Creatinine 0.90 0.6 - 1.2 mg/dl [facility] GFR, Calculated Age <18 ml/min/1.7 3m2 [facility] 02/11/2008 18:1 2 EDT 02/11/2008 18:40 EDT us Jodi Christie MD CHEMISTRY & BLOOD GAS ORDERABLE S Final Result Performing Organization Address [facility] de Phone Number [facility] [address] [place] [address] * BUN (02/11/2008 18:12 EDT) [facility] BUN 13 8 - 21 mg/dl [facility] 02/11/2008 18:1 2 EDT 02/11/2008 18:40 EDT us Jodi Christie MD CHEMISTRY & BLOOD GAS ORDERABLE S Final Result Performing Organization Address [facility] de Phone Number [facility] [address] [place] [address] * TESTS ADDED BY PHONE (02/11/2008 18:12 EDT) [facility] Tests to be added LYT STAT [facility] Who Called DR CATHY [facility] Location Code B5 [facility] 02/11/2008 18:1 2 EDT 02/11/2008 18:40 EDT us Jodi Christie MD CHEMISTRY & BLOOD GAS ORDERABLE S Final Result Performing Organization Address [facility] Co de Phone Number [facility] [address] [place] [address] * (ABNORMAL) AMMONIA (02/11/2008 18:12 EDT) Ammonia 40(H) 9 - 33 umol/L [facility] 02/11/2008 18:1 2 EDT 02/11/2008 18:40 EDT Jodi Christie MD CHEMISTRY & BLOOD GAS ORDERABLE S Final Result Performing Organization Address [facility] de Phone Number [facility] [address] [place] [address] * DIFFERENTIAL (02/11/2008 15:28 EDT) Neutrophils 55.0 [...] ORDERABLES Fin al Result Performing Organization Address [facility] Co de Phone Number [facility] [address] [place] [address] * TOTAL & DIRECT BILIRUBIN (02/11/2008 15:28 EDT) Conjugated Bilirubin 0.0 0.0 - 0.3 mg/dl [facility] Unconjugated Bilirubin 0.3 0.1 - 1.1 mg/dl [facility] Bilirubin, Total <0.5 0.0 - 1.4 mg/dl [facility] 02/11/2008 15:2 8 EDT 02/11/2008 15:39 EDT Jodi Christie MD CHEMISTRY & BLOOD GAS ORDERABLE S Final Result [facility] [address] [place] [address] * AST (02/11/2008 15:28 EDT) AST 42 15 - 46 U/L [facility] 02/11/2008 15:2 8 EDT 02/11/2008 15:39 EDT us Jodi Christie MD CHEMISTRY & BLOOD GAS ORDERABLE S Final Result Performing Organization Address [facility]/ZIP Co de Phone Number [facility] [address] [place] [address] * ALT (02/11/2008 15:28 EDT) ALT <11 0 - 45 U/L [facility] 02/11/2008 15:2 8 EDT 02/11/2008 15:39 EDT us Jodi Christie MD CHEMISTRY & BLOOD GAS ORDERABLE S Final Result Performing Organization Address [facility]/ZIP Co de Phone Number [facility] [address] [place] [address] * ALKALINE PHOSPHATASE (02/11/2008 15:28 EDT) Alkaline Phosphatase 179 65 - 260 U/L [facility] 02/11/2008 15:2 8 EDT 02/11/2008 15:39 EDT us Jodi Christie MD CHEMISTRY & BLOOD GAS ORDERABLE S Final Result [facility] [address] [place] [address] * TESTS ADDED BY PHONE (02/11/2008 15:28 EDT) Tests to be added STAT ALT,AST,TDBI L,ALKP [facility] Who Called DR CATHY [facility] Location Code B5 [facility] 02/11/2008 15:2 8 EDT 02/11/2008 15:39 EDT us Jodi Christie MD CHEMISTRY & BLOOD GAS ORDERABLE S Final Result Performing Organization Address [facility] Co de Phone Number [facility] [address] [place] [address] * (ABNORMAL) HEMAGRAM (02/11/2008 15:28 EDT) WBC [...] Fin al Result Performing Organization Address [facility] de Phone Number [facility] [address] [place] [address] * (ABNORMAL) PHOSPHORUS (02/11/2008 15:28 EDT) Phosphorus 4.9(H) 2.7 - 4.7 mg/dl [facility] 02/11/2008 15:2 8 EDT 02/11/2008 15:39 EDT us Jodi Christie MD CHEMISTRY & BLOOD GAS ORDERABLE S Final Result Performing Organization Address [facility] Co de Phone Number [facility] [address] [place] [address] * MAGNESIUM (02/11/2008 15:28 EDT) Magnesium 2.0 1.7 - 2.8 mg/dl [facility] 02/11/2008 15:2 8 EDT 02/11/2008 15:39 EDT Jodi Christie MD CHEMISTRY & BLOOD GAS ORDERABLE S Final Result Performing Organization Address [facility] de Phone Number [facility] [address] [place] [address] * CALCIUM (02/11/2008 15:28 EDT) Calcium 9.1 8.5 - 10.5 mg/dl [facility] Calculated Calcium 9.0 8.5 - 10.5 mg/dl [facility] 02/11/2008 15:2 8 EDT 02/11/2008 15:39 EDT Jodi Christie MD CHEMISTRY & BLOOD GAS ORDERABLE S Final Result Performing Organization Address [facility] de Phone Number [facility] [address] [place] [address] * (ABNORMAL) ELECTROLYTES (02/11/2008 15:28 EDT) Sodium [...] S Final Result Performing Organization Address [facility] de Phone Number [facility] [address] [place] [address] * GLUCOSE, GLUCOMETER (02/11/2008 15:22 EDT) Glucose, Fingerstick 81 70 - 100 mg/dl [facility] Spiritual Care Coordinator ID [id number] Test Performed by Nursing Services [facility] 02/11/2008 15:2 2 EDT 02/12/2008 1:19 EDT Jodi Christie MD CHEMISTRY & BLOOD GAS ORDERABLE S Final Result Performing Organization Address [facility] Co de Phone Number [facility] [address] [place] [address] * ELECTROLYTES (02/11/2008 6:00 EDT) Sodium 142 136 - 145 mEq/L [facility] Potassium 4.1 3.5 - 5.0 mEq/L [facility] Chloride 103 96 - 110 mEq/L [facility] CO2 26 24 - 32 mEq/L [facility] 02/11/2008 6:00 EDT 02/11/2008 6:15 EDT us Jodi Christie MD CHEMISTRY & BLOOD GAS ORDERABLE S Final Result Performing Organization Address [facility] de Phone Number [facility] [address] [place] [address] * ELECTROLYTES (02/11/2008 2:05 EDT) Sodium 140 136 - 145 mEq/L [facility] Potassium 4.1 3.5 - 5.0 mEq/L [facility] Chloride 104 96 - 110 mEq/L [facility] CO2 24 24 - 32 mEq/L [facility] 02/11/2008 2:05 EDT 02/11/2008 2:32 EDT Jodi Christie MD CHEMISTRY & BLOOD GAS ORDERABLE S Final Result Performing Organization Address [facility] de Phone Number [facility] [address] [place] [address] * (ABNORMAL) ELECTROLYTES (02/10/2008 21:55 EDT) Sodium [...] S Final Result Performing Organization Address [facility] de Phone Number [facility] [address] [place] [address] * ELECTROLYTES (02/10/2008 18:15 EDT) Sodium 139 136 - 145 mEq/L [facility] Potassium 4.1 3.5 - 5.0 mEq/L [facility] Chloride 103 96 - 110 mEq/L [facility] CO2 25 24 - 32 mEq/L [facility] 02/10/2008 18:1 5 EDT 02/10/2008 19:10 EDT Jodi Christie MD CHEMISTRY & BLOOD GAS ORDERABLE S Final Result Performing Organization Address [facility] de Phone Number [facility] [address] [place] [address] * ELECTROLYTES (02/10/2008 14:00 EDT) Sodium 136 136 - 145 mEq/L [facility] Potassium 3.6 3.5 - 5.0 mEq/L [facility] Chloride 100 96 - 110 mEq/L [facility] CO2 26 24 - 32 mEq/L [facility] 02/10/2008 14:0 0 EDT 02/10/2008 14:33 EDT Jodi Christie MD CHEMISTRY & BLOOD GAS ORDERABLE S Final Result Performing Organization Address [facility] de Phone Number [facility] [address] [place] [address] * (ABNORMAL) ELECTROLYTES (02/10/2008 10:12 EDT) Sodium [...] S Final Result Performing Organization Address [facility] Co de Phone Number [facility] [address] [place] [address] * GLUCOSE, GLUCOMETER (02/10/2008 8:13 EDT) Glucose, Fingerstick 74 70 - 100 mg/dl [facility] Spiritual Care Coordinator ID [id number] Test Performed by Nursing Services [facility] 02/10/2008 8:13 EDT 02/10/2008 9:15 EDT Jodi Christie MD CHEMISTRY & BLOOD GAS ORDERABLE S Final Result Performing Organization Address [facility] Co de Phone Number [facility] [address] [place] [address] * ELECTROLYTES (02/10/2008 8:05 EDT) Sodium Marked [...] S Final Result Performing Organization Address [facility] de Phone Number [facility] [address] [place] [address] * (ABNORMAL) ELECTROLYTES (02/10/2008 4:00 EDT) Sodium 130(L) 136 - 145 mEq/L [facility] Potassium 3.7 3.5 - 5.0 mEq/L [facility] Chloride 95(L) 96 - 110 mEq/L [facility] CO2 23(L) 24 - 32 mEq/L [facility] 02/10/2008 4:00 EDT 02/10/2008 4:29 EDT us Jodi Christie MD CHEMISTRY & BLOOD GAS ORDERABLE S Final Result Performing Organization Address [facility] de Phone Number [facility] [address] [place] [address] * (ABNORMAL) ELECTROLYTES (02/09/2008 23:15 EDT) Sodium [...] S Final Result Performing Organization Address [facility] de Phone Number [facility] [address] [place] [address] * BACTERIAL CULTURE, URINE (02/09/2008 21:15 EDT) Specimen Description Urine [facility] Result No growth [facility] Report Status Final [id number] [facility] 02/09/2008 21:1 5 EDT 02/09/2008 22:47 EDT Jodi Christie MD MICROBIOLOGY - GENERAL ORDERABL ES Final Result Performing Organization Address [facility] de Phone Number [facility] [address] [place] [address] * CULTURE IF UA POSITIVE (02/09/2008 21:15 EDT) Culture if Indicated Culture indicated by urinalysis results. [facility] 02/09/2008 21:1 5 EDT 02/09/2008 22:00 EDT us Jodi Christie MD MICROBIOLOGY - GENERAL ORDERABL ES Final Result Performing Organization Address [facility] de Phone Number [facility] [address] [place] [address] * (ABNORMAL) ELECTROLYTES (02/09/2008 21:15 EDT) Sodium 127(L) 136 - 145 mEq/L [facility] Potassium 4.1 3.5 - 5.0 mEq/L [facility] Chloride 89(L) 96 - 110 mEq/L [facility] CO2 25 24 - 32 mEq/L [facility] 02/09/2008 21:1 5 EDT 02/09/2008 21:57 EDT Jodi Christie MD CHEMISTRY & BLOOD GAS ORDERABLE S Final Result Performing Organization Address [facility] de Phone Number [facility] [address] [place] [address] * (ABNORMAL) UA WITH MICROSCOPIC (02/09/2008 21:15 EDT) Color, UA Straw [facility] Clarity, UA Hazy [facility] Glucose, UA 1+(A) NORM [facility] Bilirubin, UA Neg NEG [facility] Ketones, UA Neg NEG [facility] Specific [place], Urine <1.005(L) 1.005 - 1.02 [facility] [...] ORDERABLES Final Res ult Performing Organization Address [facility] de Phone Number [facility] [address] [place] [address] * (ABNORMAL) ELECTROLYTES (02/09/2008 18:05 EDT) Sodium [...] S Final Result Performing Organization Address [facility] Co de Phone Number [facility] [address] [place] [address] * GLUCOSE, GLUCOMETER (02/09/2008 17:59 EDT) Glucose, Fingerstick 98 70 - 100 mg/dl [facility] Spiritual Care Coordinator ID [id number] Test Performed by Nursing Services [facility] 02/09/2008 17:5 9 EDT 02/09/2008 23:28 EDT us Jodi Christie MD CHEMISTRY & BLOOD GAS ORDERABLE S Final Result Performing Organization Address [facility] de Phone Number [facility] [address] [place] [address] * (ABNORMAL) ELECTROLYTES (02/09/2008 16:10 EDT) Sodium [...] ORDERABLE S Final Result Performing Organization Address [facility] de Phone Number [facility] [address] [place] [address] * (ABNORMAL) GLUCOSE, GLUCOMETER (02/09/2008 16:06 EDT) Glucose, Fingerstick 105(H) 70 - 100 mg/dl [facility] Spiritual Care Coordinator ID [id number] Test Performed by Nursing Services [facility] 02/09/2008 16:0 6 EDT 02/09/2008 23:28 EDT us Jodi Christie MD CHEMISTRY & BLOOD GAS ORDERABLE S Final Result Performing Organization Address [facility] de Phone Number [facility] [address] [place] [address] * (ABNORMAL) ELECTROLYTES (02/09/2008 14:09 EDT) Sodium [...] S Final Result Performing Organization Address [facility] Co de Phone Number [facility] [address] [place] [address] * (ABNORMAL) GLUCOSE, GLUCOMETER (02/09/2008 14:01 EDT) Glucose, Fingerstick 104(H) 70 - 100 mg/dl [facility] Spiritual Care Coordinator ID [id number] Test Performed by Nursing Services [facility] 02/09/2008 14:0 1 EDT 02/09/2008 23:28 EDT us Jodi Christie MD CHEMISTRY & BLOOD GAS ORDERABLE S Final Result Performing Organization Address [facility] Co de Phone Number [facility] [address] [place] [address] * OSMOLALITY, URINE (02/09/2008 13:37 EDT) Osmolality, Ur 406 MOS/KG [facility] 02/09/2008 13:3 7 EDT 02/09/2008 13:37 EDT us Kris Izquierdo MD URINALYSIS ORDERABLES Final Res ult Performing Organization Address [facility] Co de Phone Number [facility] [address] [place] [address] * SODIUM, URINE RANDOM (02/09/2008 13:37 EDT) Sodium, Ur 91.0 mEq/L [facility] 02/09/2008 13:3 7 EDT 02/09/2008 13:37 EDT Kris Izquierdo MD URINALYSIS ORDERABLES Final Res ult Performing Organization Address [facility] Co de Phone Number [facility] [address] [place] [address] * (ABNORMAL) URINALYSIS, CHEMICAL (02/09/2008 13:37 EDT) Color, UA Straw [facility] Clarity, UA Hazy [facility] Glucose, UA Norm NORM [facility] Bilirubin, UA Neg NEG [facility] Ketones, UA Neg NEG [facility] Specific [place], Urine 1.015 1.005 - 1.02 [facility] [...] ORDERABLES Final Res ult Performing Organization Address [facility] Co de Phone Number [facility] [address] [place] [address] * URINE MICROSCOPIC (02/09/2008 13:37 EDT) WBC, [...] ORDERABLES Final Res ult Performing Organization Address [facility] Co de Phone Number [facility] [address] [place] [address] * (ABNORMAL) T4 FREE (02/09/2008 12:06 EDT) Free T4 0.6(L) 0.8 - 1.5 ng/dL [facility] 02/09/2008 12:0 6 EDT 02/09/2008 12:06 EDT us Kris Izquierdo MD CHEMISTRY & BLOOD GAS ORDERABLE S Final Result Performing Organization Address [facility] Co de Phone Number [facility] [address] [place] [address] * TESTS ADDED BY PHONE (02/09/2008 12:06 EDT) Pathologist [facility] Tests to be added FT4 [facility] Who Called KAYLI FOR DR TONIE [facility] Location Code M3 [facility] 02/09/2008 12:0 6 EDT 02/09/2008 12:06 EDT us Kris Izquierdo MD CHEMISTRY & BLOOD GAS ORDERABLE S Final Result Performing Organization Address [facility] de Phone Number [facility] [address] [place] [address] * (ABNORMAL) ELECTROLYTES (02/09/2008 12:06 EDT) Sodium [...] S Final Result Performing Organization Address [facility] de Phone Number [facility] [address] [place] [address] * (ABNORMAL) GLUCOSE, GLUCOMETER (02/09/2008 11:59 EDT) Glucose, Fingerstick 102(H) 70 - 100 mg/dl [facility] Spiritual Care Coordinator ID [id number] Test Performed by Nursing Services [facility] 02/09/2008 11:5 9 EDT 02/09/2008 23:28 EDT us Jodi Christie MD CHEMISTRY & BLOOD GAS ORDERABLE S Final Result Performing Organization Address [facility] de Phone Number [facility] [address] [place] [address] * GLUCOSE, GLUCOMETER (02/09/2008 10:09 EDT) Glucose, Fingerstick 82 70 - 100 mg/dl [facility] Spiritual Care Coordinator ID [id number] Test Performed by Nursing Services [facility] 02/09/2008 10:0 9 EDT 02/09/2008 23:28 EDT us Jodi Christie MD CHEMISTRY & BLOOD GAS ORDERABLE S Final Result Performing Organization Address [facility] de Phone Number [facility] [address] [place] [address] * (ABNORMAL) ELECTROLYTES (02/09/2008 9:49 EDT) Sodium [...] S Final Result Performing Organization Address [facility] Co de Phone Number [facility] [address] [place] [address] * (ABNORMAL) ELECTROLYTES (02/09/2008 8:09 EDT) Sodium [...] S Final Result Performing Organization Address [facility] de Phone Number [facility] [address] [place] [address] * GLUCOSE, GLUCOMETER (02/09/2008 8:08 EDT) Glucose, Fingerstick 85 70 - 100 mg/dl [facility] Spiritual Care Coordinator ID [id number] Test Performed by Nursing Services [facility] 02/09/2008 8:08 EDT 02/09/2008 23:28 EDT us Jodi Christie MD CHEMISTRY & BLOOD GAS ORDERABLE S Final Result Performing Organization Address [facility] Co de Phone Number [facility] [address] [place] [address] * (ABNORMAL) BLOOD GAS, G3 ISTAT (02/09/2008 [...] [facility] Sample Type VENOUS [facility] preparation supervisor [place] [id number] Test Performed by Respiratory [facility] 02/09/2008 8:08 EDT 02/09/2008 8:13 EDT us Kris Izquierdo MD CHEMISTRY & BLOOD GAS ORDERABLE S Final Result Performing Organization Address [facility] Co de Phone Number [facility] [address] [place] [address] * (ABNORMAL) ELECTROLYTES (02/09/2008 6:55 EDT) Sodium [...] ORDERABLE S Final Result Performing Organization Address [facility] Co de Phone Number [facility] [address] [place] [address] * (ABNORMAL) BLOOD GAS, G3 ISTAT (02/09/2008 [...] LAB Sample Type NOT GIVEN [facility] [place] [id number] Test performed by Chemistry [facility] 02/09/2008 5:35 EDT 02/09/2008 5:43 EDT us Kris Izquierdo MD CHEMISTRY & BLOOD GAS ORDERABLE S Final Result Performing Organization Address [facility]/ZIP Co de Phone Number [facility] [address] [place] [address] * MRSA MOLECULAR DETECTION (02/09/2008 5:18 EDT) Specimen Description Nasal [facility] Result NEGATIVE for Methicillin Resistant Staphylococcus aureus DNA by PCR. [facility] Report Status Final [id number] [facility] 02/09/2008 5:18 EDT 02/09/2008 7:21 EDT Kris Izquierdo MD MICROBIOLOGY - GENERAL ORDERABL ES Final Result Performing Organization Address [facility] Co de Phone Number [facility] [address] [place] [address] * GLUCOSE, SERUM (02/09/2008 5:15 EDT) Glucose, Serum 76 70 - 100 mg/dl [facility] 02/09/2008 5:15 EDT 02/09/2008 5:22 EDT us Kris Izquierdo MD CHEMISTRY & BLOOD GAS ORDERABLE S Final Result Performing Organization Address [facility] Co de Phone Number [facility] [address] [place] [address] * (ABNORMAL) CREATININE (02/09/2008 5:15 EDT) Creatinine 0.57(L) 0.6 - 1.2 mg/dl [facility] GFR, Calculated Age <18 ml/min/1.7 3m2 [facility] 02/09/2008 5:15 EDT 02/09/2008 5:22 EDT Kris Izquierdo MD CHEMISTRY & BLOOD GAS ORDERABLE S Final Result Performing Organization Address [facility]/ZIP Co de Phone Number [facility] [address] [place] [address] * (ABNORMAL) BUN (02/09/2008 5:15 EDT) BUN 7(L) 8 - 21 mg/dl [facility] 02/09/2008 5:15 EDT 02/09/2008 5:22 EDT us Kris Izquierdo MD CHEMISTRY & BLOOD GAS ORDERABLE S Final Result Performing Organization Address [facility] de Phone Number [facility] [address] [place] [address] * PHOSPHORUS (02/09/2008 5:15 EDT) Phosphorus 3.3 2.7 - 4.7 mg/dl [facility] 02/09/2008 5:15 EDT 02/09/2008 5:22 EDT Kris Izquierdo MD CHEMISTRY & BLOOD GAS ORDERABLE S Final Result Performing Organization Address [facility] Co de Phone Number [facility] [address] [place] [address] * (ABNORMAL) MAGNESIUM (02/09/2008 5:15 EDT) Magnesium 1.6(L) 1.7 - 2.8 mg/dl [facility] 02/09/2008 5:15 EDT 02/09/2008 5:22 EDT Kris Izquierdo MD CHEMISTRY & BLOOD GAS ORDERABLE S Final Result Performing Organization Address [facility]/ZIP Co de Phone Number [facility] [address] [place] [address] * (ABNORMAL) ELECTROLYTES (02/09/2008 5:15 EDT) Sodium [...] S Final Result Performing Organization Address [facility] Co de Phone Number [facility] [address] [place] [address] * CULTURE IF UA POSITIVE (02/09/2008 5:15 EDT) Culture if Indicated Culture not indicated by urinalysis results. [facility] 02/09/2008 5:15 EDT 02/09/2008 5:24 EDT Kris Izquierdo MD MICROBIOLOGY - GENERAL ORDERABL ES Final Result Performing Organization Address [facility] de Phone Number [facility] [address] [place] [address] * UA REFLEX (02/09/2008 5:15 EDT) UA Billing Microscopic not indicated. [facility] 02/09/2008 5:15 EDT 02/09/2008 5:24 EDT Kris Izquierdo MD URINALYSIS ORDERABLES Final Res ult Performing Organization Address [facility] Co de Phone Number [facility] [address] [place] [address] * (ABNORMAL) URINALYSIS, CHEMICAL (02/09/2008 5:15 EDT) Color, UA Yellow [facility] Clarity, UA Clear [facility] Glucose, UA Norm NORM [facility] Bilirubin, UA Neg NEG [facility] Ketones, UA Neg NEG [facility] Specific [place], Urine >1.030(H) 1.005 - 1.02 [facility] [...] ORDERABLES Final Res ult Performing Organization Address [facility] Co de Phone Number [facility] [address] [place] [address] * GLUCOSE, GLUCOMETER (02/09/2008 0:01 EDT) Glucose, Fingerstick 96 70 - 100 mg/dl [facility] Spiritual Care Coordinator ID [id number] Test Performed by Nursing Services [facility] 02/09/2008 0:01 EDT 02/09/2008 19:26 EDT us Jodi Christie MD CHEMISTRY & BLOOD GAS ORDERABLE S Final Result Performing Organization Address [facility] Co de Phone Number [facility] [address] [place] [address] documented in this encounter Visit Diagnoses Not on filedocumented in this encounter
--- OUTSIDE RECORDS SUMMARY | 2024-07-30 03:02 | XMS_ITS | Encounter Summary ---
Author Organization [facility] Address [address] [place] [address] Care Team Providers Care Licensed Psychologist Manager Name Role Phone Unavailable Primary Care Provider Unavailabl e Encounter Details Date Type Department Care Team (Late st Contact Info) Description 05/08/2008 5:55 EST - 06/01/2008 11:[address] [facility] Unit [address] [place], [place] [id number] Millicent Garcia MD [address] [place] [address] Jose Alejandro Castro MD Discharge [...] 01/15/2009 0552 EDT HISS DISCHARGE SUMMARY ADDRESS: [address] [place] [address] PHONE: [phone] ATTENDING PHYSICIAN: MILLICENT GARCIA MD ADDRESS: [facility] [address] [place] [address] PHONE: [phone] REFERRING PHYSICIAN: ALANA MARTINEZ MD ADDRESS: [facility] [address] [place] [address] PHONE: [phone] ADMISSION DATE: 05/08/08 SERVICE: PED. MEDICINE TRANSFER TO IP: DISCHARGE DATE: 06/01/08 SERVICE: PED. MEDICINE CHIEF COMPLAINT / REASON FOR ADMISSION: Respiratory distress PRINCIPAL/FINAL DIAGNOSIS: RLL PNA SECONDARY/FINAL DIAGNOSIS: Central diabetes insipidus Developmental delay Cortical blindness Seizures Panhypopituitarism Left hemiparesis PRINCIPAL PROCEDURE: PICC line placement CONDITION AT DISCHARGE: Stable Improved DISPOSITION AT DISCHARGE: Home with home health services - Speech, PT, OT, PLASTIC TOP ASSEMBLER-resume previous ALLERGIES: The following allergies were reported [...] STOPPED: NONE HERBAL REMEDIES, NUTRITIONAL SUPPLEMENTS, AND KSHE-ZUR-TKSCRYO MEDICATIONS that have not been prescribed by a physician may have significant adverse side effect or may interfere with the medications that have been prescribed for you. If you are taking herbal remedies, nutritional supplements, or etvj-tmy-vbtiaeg medications you are strongly encouraged to discontinue [...] - [facility] secondary to increased somnolence and ataxia on [...] Dr. Demarco or on-call MD [facility]. If Na < 132 or Na > 142, or if K+ < 3.8, page Dr. NAVI Edwards (even if not middle school professional). - Check weight daily. If > 1kg [...] RN ____ on @ __:__ fax : [phone] Day of discharge referral call by: on __/__/__ @ __:__ Spoke with: / Agency: Date/time of first visit needed: __/__/__ @ __:__ Discharged on __/__/__ @ __:__ with: To address: Phone: assembly lead person: Phone: Relationship: HOME INFUSION: IV Access Solo Power PICC Type Valved Catheter Date inserted 05/18/08 Last flushed Last drsg change 05/28/08 (external length 8cm) In-hospital teaching RE: Line care VENDOR [facility] PATIENT/FAMILY EDUCATION: Central Line Care PATIENT/FAMILY EDUCATION: Subcutaneous Injection cc: MD Dr. NAVI CASTILLO (Pedi Endo) Dr. Demarco (PCP) ADDENDUM: Additional medication: zonisamide (Zonegran) 50mg PO daily (for seizures) END OF REPORT D: ANATOLIY CHOUDHURY MD P - ZOHDocument ID: [id number] documented in this encounter Discharge Disposition Disposition Code Departure Means Destination Home-Health Care [facility] documented in this encounter Progress [...] history as below, who was transported from [place] with respiratory failure and pneumonia in the setting of two weeks of cough and congestion. At 0200 on the morning of admission, his stepmom noted his respiratory distress had acutely worsened and he was transported by EMS to [place]. There, he required bag mask ventilation, intubation and mechanical ventilation. He received Solu-Medrol for his ACTH deficiency[facility] with [facility] and [...] not tolerating p.o. of any consistency and PLANT AND INSTRUMENT ENGINEER was consulted on May 12, 2008. Bedside [...] His parents had been restricting him to [id number] zurdo/day to maintain a weight of 160-170#. [...] stabilized on mechanical ventilation prior to transport andreakined on the ventilator for two days. On [...] from 12:15 to 1:15 with all of [place] care providers and family to discuss his disposition and coordination of care. DISPOSITION Transfer to [place] [address]. CONDITION AT DISCHARGE Stable. Supervising Physician Signed by Alanna Neil MD 05/30/2008 15:03 Zain Hdz MD Alanna Neil MD - Zain Hdz MD A - [facility] Job ID: [id number] Document ID: [id number] cc: MD Zain Walker, MD Alanna Bell MD Roger C Knakal, MD Daniel W Larrow, MD William V Raszka, MD Christopher Ga, MD Jodi Parr, MD Skyler Edwards MD * Lc Cheng MD - 05/12/2008 0000 EST INPATIENT PROGRESS NOTE Service Date: 05/12/2008 PT LOC: M003 This is an inpatient followup consultation at the request of Dr Alanna Neil for this 11-gzks-cjyhwrm complicated problems centering around earlier operative craniopharyngioma. 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 His examination [...] no definite evidence of a superimposed acquired ROOF SHINGLER injury ie hypoxic, ischemic or otherwise. I [...] D: - Lc Cheng MD P - SDAE Job ID: [id number] Document ID: [id number] cc: MD Jose Alejandro Walker MD Amelia Hopkins, MD Stewart Condon, MD documented in this encounter Consult Notes [...] transsphenoidal resection and craniotomy. [facility] [place] [facility], with respiratory failure [...] are doing to include PT, OT, and PLANT AND INSTRUMENT ENGINEER. 2. Research Geneticist to clarify home disposition issues and assistance [...] Wicho Carlton MD P - Job ID: [id number] Document ID: [id number] cc: Alexis Ocampo III, MD Barry W [...] neurology resident, Dr. Carr. Miguel Angel is 89-on[age]gy-ood and has a history of operated craniopharyngioma [...] his care and he was transferred to [facility], and, in the course of that [...] Lc Cheng MD P - Job ID: [id number] Document ID: [id number] cc: MD Jose Alejandro Walker MD Stewart Manchester, MD documented in this encounter Plan of Treatment Upcoming Encounters Date Type Department Care Team (Late st Contact Info) Description 10/01/2024 13:40 EDT Office Visit [facility] Endocrinology - [facility] [address] [place] [address] Wilder Zaidi, [address] [facility] [address] [place] [address] documented as of this encounter [...] ORDERABLE S Final Result Performing Organization Address [facility] Co de Phone Number [facility] [address] [place] [address] * CREATININE (06/01/2008 5:06 EST) Creatinine 0.71 0.6 - 1.2 mg/dl [facility] GFR, Calculated Age <18 ml/min/1.7 3m2 [facility] 06/01/2008 5:06 EST 06/01/2008 5:35 EST us Jodi Parr MD CHEMISTRY & BLOOD GAS ORDERABLE S Final Result Performing Organization Address [facility] Co de Phone Number [facility] [address] [place] [address] * BUN (06/01/2008 5:06 EST) BUN 16 8 - 21 mg/dl [facility] 06/01/2008 5:06 EST 06/01/2008 5:35 EST us Jodi Parr MD CHEMISTRY & BLOOD GAS ORDERABLE S Final Result Performing Organization Address [facility] de Phone Number [facility] [address] [place] [address] * (ABNORMAL) ELECTROLYTES (06/01/2008 5:06 EST) Sodium 138 136 - 145 mEq/L [facility] Potassium 4.0 3.5 - 5.0 mEq/L [facility] Chloride 103 96 - 110 mEq/L [facility] CO2 23(L) 24 - 32 mEq/L [facility] 06/01/2008 5:06 EST 06/01/2008 5:35 EST us Jodi Parr MD CHEMISTRY & BLOOD GAS ORDERABLE S Final Result Performing Organization Address [facility] de Phone Number [facility] [address] [place] [address] * ELECTROLYTES (05/31/2008 18:00 EST) Sodium 137 136 - 145 mEq/L [facility] Potassium 3.8 3.5 - 5.0 mEq/L [facility] Chloride 99 96 - 110 mEq/L [facility] CO2 24 24 - 32 mEq/L [facility] 05/31/2008 18:0 0 EST 05/31/2008 18:56 EST us Jodi Parr MD CHEMISTRY & BLOOD GAS ORDERABLE S Final Result Performing Organization Address [facility] Phone Number [facility] [address] [place] [address] * ELECTROLYTES (05/31/2008 12:20 EST) Sodium 136 136 - 145 mEq/L [facility] Potassium 3.5 3.5 - 5.0 mEq/L [facility] Chloride 97 96 - 110 mEq/L [facility] CO2 25 24 - 32 mEq/L [facility] 05/31/2008 12:2 0 EST 05/31/2008 12:32 EST us Jodi Parr MD CHEMISTRY & BLOOD GAS ORDERABLE S Final Result Performing Organization Address [facility] de Phone Number [facility] [address] [place] [address] * (ABNORMAL) GLUCOSE, SERUM (05/31/2008 6:00 EST) Glucose, Serum 67(L) 70 - 100 mg/dl [facility] 05/31/2008 6:00 EST 05/31/2008 6:24 EST us Jodi Parr MD CHEMISTRY & BLOOD GAS ORDERABLE S Final Result Performing Organization Address City/[facility]/ZIP Co de Phone Number [facility] [address] [place] [address] * CREATININE (05/31/2008 6:00 EST) Creatinine 0.70 0.6 - 1.2 mg/dl [facility] GFR, Calculated Age <18 ml/min/1.7 3m2 [facility] 05/31/2008 6:00 EST 05/31/2008 6:24 EST us Jodi Parr MD CHEMISTRY & BLOOD GAS ORDERABLE S Final Result Performing Organization Address [facility] Co de Phone Number [facility] [address] [place] [address] * BUN (05/31/2008 6:00 EST) BUN 18 8 - 21 mg/dl [facility] 05/31/2008 6:00 EST 05/31/2008 6:24 EST us Jodi Parr MD CHEMISTRY & BLOOD GAS ORDERABLE S Final Result Performing Organization Address [facility] Co de Phone Number [facility] [address] [place] [address] * (ABNORMAL) ELECTROLYTES (05/31/2008 6:00 EST) Sodium 135(L) 136 - 145 mEq/L [facility] Potassium 4.3 3.5 - 5.0 mEq/L [facility] Chloride 100 96 - 110 mEq/L [facility] CO2 22(L) 24 - 32 mEq/L [facility] 05/31/2008 6:00 EST 05/31/2008 6:24 EST us Jodi Parr MD CHEMISTRY & BLOOD GAS ORDERABLE S Final Result Performing Organization Address [facility]/ZIP Co de Phone Number [facility] [address] [place] [address] * (ABNORMAL) ELECTROLYTES (05/30/2008 18:00 EST) Sodium [...] ORDERABLE S Final Result Performing Organization Address [facility] de Phone Number [facility] [address] [place] [address] * ELECTROLYTES (05/30/2008 12:25 EST) Sodium 136 136 - 145 mEq/L [facility] Potassium 3.7 3.5 - 5.0 mEq/L [facility] Chloride 97 96 - 110 mEq/L [facility] CO2 25 24 - 32 mEq/L [facility] 05/30/2008 12:2 5 EST 05/30/2008 12:33 EST Jodi Parr MD CHEMISTRY & BLOOD GAS ORDERABLE S Final Result Performing Organization Address [facility] de Phone Number [facility] [address] [place] [address] * (ABNORMAL) GLUCOSE, SERUM (05/30/2008 5:10 EST) Glucose, Serum 63(L) 70 - 100 mg/dl [facility] 05/30/2008 5:10 EST 05/30/2008 5:32 EST Jodi Parr MD CHEMISTRY & BLOOD GAS ORDERABLE S Final Result Performing Organization Address [facility] Co de Phone Number [facility] [address] [place] [address] * CREATININE (05/30/2008 5:10 EST) Creatinine 0.70 0.6 - 1.2 mg/dl [facility] GFR, Calculated Age <18 ml/min/1.7 3m2 [facility] 05/30/2008 5:10 EST 05/30/2008 5:32 EST Jodi Parr MD CHEMISTRY & BLOOD GAS ORDERABLE S Final Result Performing Organization Address [facility] de Phone Number [facility] [address] [place] [address] * BUN (05/30/2008 5:10 EST) BUN 16 8 - 21 mg/dl [facility] 05/30/2008 5:10 EST 05/30/2008 5:32 EST Jodi Parr MD CHEMISTRY & BLOOD GAS ORDERABLE S Final Result Performing Organization Address [facility] de Phone Number [facility] [address] [place] [address] * (ABNORMAL) ELECTROLYTES (05/30/2008 5:10 EST) Sodium 132(L) 136 - 145 mEq/L [facility] Potassium 4.4 3.5 - 5.0 mEq/L [facility] Chloride 98 96 - 110 mEq/L [facility] CO2 25 24 - 32 mEq/L [facility] 05/30/2008 5:10 EST 05/30/2008 5:32 EST Jodi Parr MD CHEMISTRY & BLOOD GAS ORDERABLE S Final Result Performing Organization Address [facility] de Phone Number [facility] [address] [place] [address] * (ABNORMAL) ELECTROLYTES (05/29/2008 18:00 EST) Sodium [...] ORDERABLE S Final Result Performing Organization Address [facility] Phone Number [facility] [address] [place] [address] * (ABNORMAL) ELECTROLYTES (05/29/2008 12:32 EST) Sodium [...] ORDERABLE S Final Result Performing Organization Address [facility] Phone Number [facility] [address] [place] [address] * (ABNORMAL) GLUCOSE, SERUM (05/29/2008 6:55 EST) Glucose, Serum 62(L) 70 - 100 mg/dl [facility] 05/29/2008 6:55 EST 05/29/2008 7:36 EST Jose Alejandro Castro MD CHEMISTRY & BLOOD GAS ORDERABLE S Final Result Performing Organization Address [facility] Phone Number [facility] [address] [place] [address] * CREATININE (05/29/2008 6:55 EST) Creatinine 0.60 0.6 - 1.2 mg/dl [facility] GFR, Calculated Age <18 ml/min/1.7 3m2 [facility] 05/29/2008 6:55 EST 05/29/2008 7:36 EST Jose Alejandro Castro MD CHEMISTRY & BLOOD GAS ORDERABLE S Final Result Performing Organization Address [facility] Co de Phone Number [facility] [address] [place] [address] * BUN (05/29/2008 6:55 EST) BUN 16 8 - 21 mg/dl [facility] 05/29/2008 6:55 EST 05/29/2008 7:36 EST Jose Alejandro Castro MD CHEMISTRY & BLOOD GAS ORDERABLE S Final Result Performing Organization Address [facility] de Phone Number [facility] [address] [place] [address] * (ABNORMAL) ELECTROLYTES (05/29/2008 6:55 EST) Sodium 134(L) 136 - 145 mEq/L [facility] Potassium 4.0 3.5 - 5.0 mEq/L [facility] Chloride 99 96 - 110 mEq/L [facility] CO2 22(L) 24 - 32 mEq/L [facility] 05/29/2008 6:55 EST 05/29/2008 7:36 EST Jose Alejandro Castro MD CHEMISTRY & BLOOD GAS ORDERABLE S Final Result Performing Organization Address [facility] de Phone Number [facility] [address] [place] [address] * ELECTROLYTES (05/28/2008 19:00 EST) Sodium 136 136 - 145 mEq/L [facility] Potassium 4.2 3.5 - 5.0 mEq/L [facility] Chloride 98 96 - 110 mEq/L [facility] CO2 26 24 - 32 mEq/L [facility] 05/28/2008 19:0 0 EST 05/28/2008 19:12 EST Jose Alejandro Castro MD CHEMISTRY & BLOOD GAS ORDERABLE S Final Result Performing Organization Address [facility] Co de Phone Number [facility] [address] [place] [address] * (ABNORMAL) GLUCOSE, SERUM (05/28/2008 6:59 EST) Glucose, Serum 66(L) 70 - 100 mg/dl [facility] 05/28/2008 6:59 EST 05/28/2008 6:59 EST Jose Alejandro Castro MD CHEMISTRY & BLOOD GAS ORDERABLE S Final Result Performing Organization Address [facility] de Phone Number [facility] [address] [place] [address] * (ABNORMAL) CREATININE (05/28/2008 6:59 EST) Creatinine 0.50(L) 0.6 - 1.2 mg/dl [facility] GFR, Calculated Age <18 ml/min/1.7 3m2 [facility] 05/28/2008 6:59 EST 05/28/2008 6:59 EST Jose Alejandro Castro MD CHEMISTRY & BLOOD GAS ORDERABLE S Final Result Performing Organization Address [facility] de Phone Number [facility] [address] [place] [address] * BUN (05/28/2008 6:59 EST) BUN 15 8 - 21 mg/dl [facility] 05/28/2008 6:59 EST 05/28/2008 6:59 EST us Jose Alejandro Castro MD CHEMISTRY & BLOOD GAS ORDERABLE S Final Result Performing Organization Address [facility] Co de Phone Number [facility] [address] [place] [address] * (ABNORMAL) ELECTROLYTES (05/28/2008 6:59 EST) Sodium [...] ORDERABLE S Final Result Performing Organization Address [facility] Co de Phone Number [facility] [address] [place] [address] * (ABNORMAL) CREATININE (05/27/2008 19:07 EST) Creatinine 0.50(L) 0.6 - 1.2 mg/dl [facility] GFR, Calculated Age <18 ml/min/1.7 3m2 [facility] 05/27/2008 19:0 7 EST 05/27/2008 19:07 EST us Jose Alejandro Castro MD CHEMISTRY & BLOOD GAS ORDERABLE S Final Result Performing Organization Address [facility]/ZIP Co de Phone Number [facility] [address] [place] [address] * BUN (05/27/2008 19:07 EST) BUN 16 8 - 21 mg/dl [facility] 05/27/2008 19:0 7 EST 05/27/2008 19:07 EST us Jose Alejandro Castro MD CHEMISTRY & BLOOD GAS ORDERABLE S Final Result Performing Organization Address [facility]/ZIP Co de Phone Number [facility] [address] [place] [address] * TESTS ADDED BY PHONE (05/27/2008 19:07 EST) Tests to be added STAT BUN,CREAT [facility] Who Called DR ALDO [facility] Location Code M3 MELONIEMARSHA HILDA [facility] 05/27/2008 19:0 7 EST 05/27/2008 19:07 EST Jose Alejandro Castro MD CHEMISTRY & BLOOD GAS ORDERABLE S Final Result Performing Organization Address [facility] Co de Phone Number [facility] [address] [place] [address] * (ABNORMAL) ELECTROLYTES (05/27/2008 19:07 EST) Sodium [...] ORDERABLE S Final Result Performing Organization Address [facility] de Phone Number [facility] [address] [place] [address] * (ABNORMAL) GLUCOSE, GLUCOMETER (05/27/2008 16:21 EST) Glucose, Fingerstick 124(H) 70 - 100 mg/dl [facility] Poolroom/Poolhall Manager [place] [id number] Test Performed by Nursing Services [facility] 05/27/2008 16:2 1 EST 05/27/2008 23:27 EST Jose Alejandro Castro MD CHEMISTRY & BLOOD GAS ORDERABLE S Final Result Performing Organization Address [facility] de Phone Number [facility] [address] [place] [address] * (ABNORMAL) ELECTROLYTES (05/27/2008 16:21 EST) Sodium 134(L) 136 - 145 mEq/L [facility] Potassium 3.9 3.5 - 5.0 mEq/L [facility] Chloride 97 96 - 110 mEq/L [facility] CO2 26 24 - 32 mEq/L [facility] 05/27/2008 16:2 1 EST 05/27/2008 16:21 EST Jose Alejandro Castro MD CHEMISTRY & BLOOD GAS ORDERABLE S Final Result Performing Organization Address [facility] de Phone Number [facility] [address] [place] [address] * GLUCOSE, GLUCOMETER (05/27/2008 12:26 EST) Glucose, Fingerstick 87 70 - 100 mg/dl [facility] Poolroom/Poolhall Manager ID [id number] Test Performed by Nursing Services [facility] 05/27/2008 12:2 6 EST 05/27/2008 23:27 EST Jose Alejandro Castro MD CHEMISTRY & BLOOD GAS ORDERABLE S Final Result Performing Organization Address [facility] Phone Number [facility] [address] [place] [address] * BACTERIAL CULTURE, URINE (05/27/2008 12:04 EST) Specimen Description Urine [facility] Result No growth [facility] Report Status Final 05/28/2008 [facility] 05/27/2008 12:0 4 EST 05/27/2008 13:14 EST Jose Alejandro Castro MD MICROBIOLOGY - GENERAL ORDERABL ES Final Result Performing Organization Address [facility] de Phone Number [facility] [address] [place] [address] * (ABNORMAL) URINALYSIS, CHEMICAL (05/27/2008 12:04 EST) Color, UA Yellow [facility] Clarity, UA Clear [facility] Glucose, UA Norm NORM [facility] Bilirubin, UA Neg NEG [facility] Ketones, UA Neg NEG [facility] Specific [place], Urine >1.030(H) 1.005 - 1.02 [facility] [...] ORDERABLES Final Res ult Performing Organization Address [facility] Co de Phone Number [facility] [address] [place] [address] * URINE MICROSCOPIC (05/27/2008 12:04 EST) WBC, [...] ORDERABLES Final Res ult Performing Organization Address [facility] Co de Phone Number [facility] [address] [place] [address] * (ABNORMAL) ELECTROLYTES (05/27/2008 11:45 EST) Sodium [...] ORDERABLE S Final Result Performing Organization Address [facility] de Phone Number [facility] [address] [place] [address] * GLUCOSE, SERUM (05/27/2008 6:45 EST) Glucose, Serum 74 70 - 100 mg/dl [facility] 05/27/2008 6:45 EST 05/27/2008 6:55 EST Jose Alejandro Castro MD CHEMISTRY & BLOOD GAS ORDERABLE S Final Result Performing Organization Address [facility] Phone Number [facility] [address] [place] [address] * (ABNORMAL) ELECTROLYTES (05/27/2008 6:45 EST) Sodium [...] ORDERABLE S Final Result Performing Organization Address [facility] de Phone Number [facility] [address] [place] [address] * CREATININE (05/27/2008 3:00 EST) Creatinine 0.60 0.6 - 1.2 mg/dl [facility] GFR, Calculated Age <18 ml/min/1.7 3m2 [facility] 05/27/2008 3:00 EST 05/27/2008 3:06 EST Jose Alejandro Castro MD CHEMISTRY & BLOOD GAS ORDERABLE S Final Result Performing Organization Address [facility] de Phone Number [facility] [address] [place] [address] * (ABNORMAL) BUN (05/27/2008 3:00 EST) BUN 22(H) 8 - 21 mg/dl [facility] 05/27/2008 3:00 EST 05/27/2008 3:06 EST Jose Alejandro Castro MD CHEMISTRY & BLOOD GAS ORDERABLE S Final Result Performing Organization Address [facility] de Phone Number [facility] [address] [place] [address] * (ABNORMAL) ELECTROLYTES (05/27/2008 3:00 EST) Sodium 132(L) 136 - 145 mEq/L [facility] Potassium 4.1 3.5 - 5.0 mEq/L [facility] Chloride 98 96 - 110 mEq/L [facility] CO2 26 24 - 32 mEq/L [facility] 05/27/2008 3:00 EST 05/27/2008 3:06 EST Jose Alejandro Castro MD CHEMISTRY & BLOOD GAS ORDERABLE S Final Result Performing Organization Address [facility] de Phone Number [facility] [address] [place] [address] * (ABNORMAL) ELECTROLYTES (05/26/2008 23:04 EST) Sodium [...] ORDERABLE S Final Result Performing Organization Address [facility] de Phone Number [facility] [address] [place] [address] * ELECTROLYTES (05/26/2008 19:14 EST) Sodium 136 136 - 145 mEq/L [facility] Potassium 4.2 3.5 - 5.0 mEq/L [facility] Chloride 99 96 - 110 mEq/L [facility] CO2 25 24 - 32 mEq/L [facility] 05/26/2008 19:1 4 EST 05/26/2008 19:14 EST Jose Alejandro Castro MD CHEMISTRY & BLOOD GAS ORDERABLE S Final Result Performing Organization Address [facility] de Phone Number [facility] [address] [place] [address] * (ABNORMAL) ELECTROLYTES (05/26/2008 15:47 EST) Sodium [...] ORDERABLE S Final Result Performing Organization Address [facility] de Phone Number [facility] [address] [place] [address] * GLUCOSE, GLUCOMETER (05/26/2008 15:44 EST) Glucose, Fingerstick 98 70 - 100 mg/dl [facility] Poolroom/Poolhall Manager [place] [id number] Test Performed by Nursing Services [facility] 05/26/2008 15:4 4 EST 05/26/2008 23:27 EST Jose Alejandro Castro MD CHEMISTRY & BLOOD GAS ORDERABLE S Final Result Performing Organization Address [facility] Phone Number [facility] [address] [place] [address] * ELECTROLYTES (05/26/2008 11:50 EST) Sodium 136 136 - 145 mEq/L [facility] Potassium 4.4 3.5 - 5.0 mEq/L [facility] Chloride 100 96 - 110 mEq/L [facility] CO2 24 24 - 32 mEq/L [facility] 05/26/2008 11:5 0 EST 05/26/2008 11:50 EST Jose Alejandro Castro MD CHEMISTRY & BLOOD GAS ORDERABLE S Final Result Performing Organization Address [facility] Phone Number [facility] [address] [place] [address] * (ABNORMAL) GLUCOSE, GLUCOMETER (05/26/2008 11:39 EST) Glucose, Fingerstick 107(H) 70 - 100 mg/dl [facility] Poolroom/Poolhall Manager [place] [id number] Test Performed by Nursing Services [facility] 05/26/2008 11:3 9 EST 05/26/2008 23:27 EST Jose Alejandro Castro MD CHEMISTRY & BLOOD GAS ORDERABLE S Final Result Performing Organization Address [facility] Phone Number [facility] [address] [place] [address] * ELECTROLYTES (05/26/2008 7:09 EST) Sodium 138 136 - 145 mEq/L [facility] Potassium 4.5 3.5 - 5.0 mEq/L [facility] Chloride 102 96 - 110 mEq/L [facility] CO2 25 24 - 32 mEq/L [facility] 05/26/2008 7:09 EST 05/26/2008 7:09 EST Jose Alejandro Castro MD CHEMISTRY & BLOOD GAS ORDERABLE S Final Result [facility] [address] [place] [address] * GLUCOSE, SERUM (05/26/2008 2:58 EST) Glucose, Serum 79 70 - 100 mg/dl [facility] Comment:Slightly lipemic 05/26/2008 2:58 EST 05/26/2008 2:58 EST Jose Alejandro Castro MD CHEMISTRY & BLOOD GAS ORDERABLE S Final Result Performing Organization Address [facility]/ZIP Co de Phone Number [facility] [address] [place] [address] * CREATININE (05/26/2008 2:58 EST) Creatinine 0.70 0.6 - 1.2 mg/dl [facility] Comment:Slightly lipemic GFR, Calculated Age <18 Slightly lipemic ml/min/1. 73m2 [facility] 05/26/2008 2:58 EST 05/26/2008 2:58 EST Jose Alejandro Castro MD CHEMISTRY & BLOOD GAS ORDERABLE S Final Result Performing Organization Address City/[facility]/ZIP Co de Phone Number [facility] [address] [place] [address] * BUN (05/26/2008 2:58 EST) BUN 17 8 - 21 mg/dl [facility] Comment:Slightly lipemic 05/26/2008 2:58 EST 05/26/2008 2:58 EST Jose Alejandro Castro MD CHEMISTRY & BLOOD GAS ORDERABLE S Final Result [facility] [address] [place] [address] * ELECTROLYTES (05/26/2008 2:58 EST) Sodium 137 [...] ORDERABLE S Final Result Performing Organization Address [facility] de Phone Number [facility] [address] [place] [address] * ELECTROLYTES (05/26/2008 0:00 EST) Sodium 139 [...] ORDERABLE S Final Result Performing Organization Address [facility] de Phone Number [facility] [address] [place] [address] * (ABNORMAL) ELECTROLYTES (05/25/2008 19:59 EST) Sodium [...] ORDERABLE S Final Result Performing Organization Address [facility] de Phone Number [facility] [address] [place] [address] * ELECTROLYTES (05/25/2008 16:20 EST) Sodium 137 [...] ORDERABLE S Final Result Performing Organization Address [facility] de Phone Number [facility] [address] [place] [address] * ELECTROLYTES (05/25/2008 13:05 EST) Sodium 138 [...] ORDERABLE S Final Result Performing Organization Address [facility] de Phone Number [facility] [address] [place] [address] * GLUCOSE, GLUCOMETER (05/25/2008 13:00 EST) Glucose, Fingerstick 88 70 - 100 mg/dl [facility] Poolroom/Poolhall Manager ID [id number] Test Performed by Nursing Services [facility] 05/25/2008 13:0 0 EST 05/25/2008 23:23 EST us Jose Alejandro Castro MD CHEMISTRY & BLOOD GAS ORDERABLE S Final Result Performing Organization Address [facility] Co de Phone Number [facility] [address] [place] [address] * MRSA MOLECULAR DETECTION (05/25/2008 12:40 EST) Specimen Description Tomás WILHELMTCHHILDA [facility] Result NEGATIVE for Methicillin Resistant Staphylococcus aureus DNA by PCR. [facility] Report Status Final 05/26/2008 [facility] 05/25/2008 12:4 0 EST 05/25/2008 14:30 EST Jose Alejandro Castro MD MICROBIOLOGY - GENERAL ORDERABL ES Final Result Performing Organization Address [facility] Co de Phone Number [facility] [address] [place] [address] * ELECTROLYTES (05/25/2008 10:00 EST) Sodium 139 136 - 145 mEq/L [facility] Potassium 4.5 3.5 - 5.0 mEq/L [facility] Chloride 101 96 - 110 mEq/L [facility] CO2 26 24 - 32 mEq/L [facility] 05/25/2008 10:0 0 EST 05/25/2008 10:00 EST Jose Alejandro Casrto MD CHEMISTRY & BLOOD GAS ORDERABLE S Final Result Performing Organization Address [facility] de Phone Number [facility] [address] [place] [address] * (ABNORMAL) ELECTROLYTES (05/25/2008 5:52 EST) Sodium [...] ORDERABLE S Final Result Performing Organization Address [facility] Co de Phone Number [facility] [address] [place] [address] * GLUCOSE, SERUM (05/25/2008 2:54 EST) Glucose, Serum 75 70 - 100 mg/dl [facility] 05/25/2008 2:54 EST 05/25/2008 2:56 EST Jose Alejandro Castro MD CHEMISTRY & BLOOD GAS ORDERABLE S Final Result Performing Organization Address [facility] Co de Phone Number [facility] [address] [place] [address] * BUN (05/25/2008 2:54 EST) BUN 16 8 - 21 mg/dl [facility] 05/25/2008 2:54 EST 05/25/2008 2:56 EST Jose Alejandro Castro MD CHEMISTRY & BLOOD GAS ORDERABLE S Final Result Performing Organization Address [facility] Co de Phone Number [facility] [address] [place] [address] * (ABNORMAL) ELECTROLYTES (05/25/2008 2:54 EST) Sodium 132(L) 136 - 145 mEq/L [facility] Potassium 4.4 3.5 - 5.0 mEq/L [facility] Chloride 98 96 - 110 mEq/L [facility] CO2 25 24 - 32 mEq/L [facility] 05/25/2008 2:54 EST 05/25/2008 2:56 EST Jose Alejandro Castro MD CHEMISTRY & BLOOD GAS ORDERABLE S Final Result Performing Organization Address [facility] Co de Phone Number [facility] [address] [place] [address] * (ABNORMAL) ELECTROLYTES (05/24/2008 23:58 EST) Sodium [...] ORDERABLE S Final Result Performing Organization Address [facility] Co de Phone Number [facility] [address] [place] [address] * (ABNORMAL) ELECTROLYTES (05/24/2008 19:45 EST) Sodium [...] ORDERABLE S Final Result Performing Organization Address [facility] de Phone Number [facility] [address] [place] [address] * ELECTROLYTES (05/24/2008 17:36 EST) Sodium 136 136 - 145 mEq/L [facility] Potassium 4.4 3.5 - 5.0 mEq/L [facility] Chloride 99 96 - 110 mEq/L [facility] CO2 24 24 - 32 mEq/L [facility] 05/24/2008 17:3 6 EST 05/24/2008 17:37 EST Jose Alejandro Castro MD CHEMISTRY & BLOOD GAS ORDERABLE S Final Result Performing Organization Address [facility] Co de Phone Number [facility] [address] [place] [address] * ELECTROLYTES (05/24/2008 15:20 EST) Sodium 137 136 - 145 mEq/L [facility] Potassium 4.1 3.5 - 5.0 mEq/L [facility] Chloride 100 96 - 110 mEq/L [facility] CO2 25 24 - 32 mEq/L [facility] 05/24/2008 15:2 0 EST 05/24/2008 15:25 EST Jose Alejandro Castro MD CHEMISTRY & BLOOD GAS ORDERABLE S Final Result Performing Organization Address [facility] de Phone Number [facility] [address] [place] [address] * (ABNORMAL) ELECTROLYTES (05/24/2008 12:00 EST) Sodium [...] ORDERABLE S Final Result Performing Organization Address [facility] de Phone Number [facility] [address] [place] [address] * CREATININE (05/24/2008 9:47 EST) Creatinine 0.60 0.6 - 1.2 mg/dl [facility] GFR, Calculated Age <18 ml/min/1.7 3m2 [facility] 05/24/2008 9:47 EST 05/24/2008 9:47 EST us Jose Alejandro Castro MD CHEMISTRY & BLOOD GAS ORDERABLE S Final Result Performing Organization Address [facility] de Phone Number [facility] [address] [place] [address] * (ABNORMAL) ELECTROLYTES (05/24/2008 9:47 EST) Sodium 134(L) 136 - 145 mEq/L [facility] Potassium 4.5 3.5 - 5.0 mEq/L [facility] Chloride 96 96 - 110 mEq/L [facility] CO2 27 24 - 32 mEq/L [facility] 05/24/2008 9:47 EST 05/24/2008 9:47 EST Jose Alejandro Castro MD CHEMISTRY & BLOOD GAS ORDERABLE S Final Result Performing Organization Address [facility] Co de Phone Number [facility] [address] [place] [address] * (ABNORMAL) GLUCOSE, GLUCOMETER (05/24/2008 7:24 EST) Glucose, Fingerstick 67(L) 70 - 100 mg/dl [facility] Poolroom/Poolhall Manager [place] [id number] Test Performed by Nursing Services [facility] 05/24/2008 7:24 EST 05/24/2008 23:10 EST Jose Alejandro Castro MD CHEMISTRY & BLOOD GAS ORDERABLE S Final Result Performing Organization Address [facility] Co de Phone Number [facility] [address] [place] [address] * CREATININE (05/24/2008 6:05 EST) Creatinine 0.60 0.6 - 1.2 mg/dl [facility] GFR, Calculated Age <18 ml/min/1.7 3m2 [facility] 05/24/2008 6:05 EST 05/24/2008 6:11 EST us Jose Alejandro Castro MD CHEMISTRY & BLOOD GAS ORDERABLE S Final Result Performing Organization Address [facility] Co de Phone Number [facility] [address] [place] [address] * TESTS ADDED BY PHONE (05/24/2008 6:05 EST) Tests to be added STAT CREAT [facility] Who Called JOSELUIS Packer FOR DR TONIE [facility] Location Code [id number] [facility] 05/24/2008 6:05 EST 05/24/2008 6:11 EST us Jose Alejandro Castro MD CHEMISTRY & BLOOD GAS ORDERABLE S Final Result Performing Organization Address [facility] Co de Phone Number [facility] [address] [place] [address] * (ABNORMAL) GLUCOSE, SERUM (05/24/2008 6:05 EST) Glucose, Serum 66(L) 70 - 100 mg/dl [facility] 05/24/2008 6:05 EST 05/24/2008 6:11 EST us Jose Alejandro Castro MD CHEMISTRY & BLOOD GAS ORDERABLE S Final Result Performing Organization Address [facility] de Phone Number [facility] [address] [place] [address] * BUN (05/24/2008 6:05 EST) BUN 16 8 - 21 mg/dl [facility] 05/24/2008 6:05 EST 05/24/2008 6:11 EST us Jose Alejandro Castro MD CHEMISTRY & BLOOD GAS ORDERABLE S Final Result Performing Organization Address [facility] de Phone Number [facility] [address] [place] [address] * (ABNORMAL) ELECTROLYTES (05/24/2008 6:05 EST) Sodium [...] S Final Result [facility] [address] [place] [address] * (ABNORMAL) ELECTROLYTES (05/24/2008 3:20 EST) Sodium [...] ORDERABLE S Final Result Performing Organization Address [facility]/ZIP Co de Phone Number [facility] [address] [place] [address] * (ABNORMAL) GLUCOSE, GLUCOMETER (05/24/2008 0:07 EST) Glucose, Fingerstick 119(H) 70 - 100 mg/dl [facility] Poolroom/Poolhall Manager [place] [id number] Test Performed by Nursing Services [facility] 05/24/2008 0:07 EST 05/24/2008 23:10 EST Jose Alejandro Castro MD CHEMISTRY & BLOOD GAS ORDERABLE S Final Result Performing Organization Address [facility]/ZIP Co de Phone Number [facility] [address] [place] [address] * (ABNORMAL) ELECTROLYTES (05/24/2008 0:05 EST) Sodium 134(L) 136 - 145 mEq/L [facility] Comment:Slightly lipemic Potassium 4.6 3.5 - 5.0 mEq/L [facility] Comment:Slightly lipemic Chloride 99 96 - 110 mEq/L [facility] Comment:Slightly lipemic CO2 24 24 - 32 mEq/L [facility] Comment:Slightly lipemic 05/24/2008 0:05 EST 05/24/2008 0:17 EST Jose Alejandro Castro MD CHEMISTRY & BLOOD GAS ORDERABLE S Final Result Performing Organization Address [facility] de Phone Number [facility] [address] [place] [address] * ELECTROLYTES (05/23/2008 21:00 EST) Sodium 138 136 - 145 mEq/L [facility] Potassium 3.8 3.5 - 5.0 mEq/L [facility] Chloride 99 96 - 110 mEq/L [facility] CO2 25 24 - 32 mEq/L [facility] 05/23/2008 21:0 0 EST 05/23/2008 21:07 EST Jose Alejandro Castro MD CHEMISTRY & BLOOD GAS ORDERABLE S Final Result Performing Organization Address [facility] Phone Number [facility] [address] [place] [address] * ELECTROLYTES (05/23/2008 18:24 EST) Sodium 137 136 - 145 mEq/L [facility] Potassium 4.9 3.5 - 5.0 mEq/L [facility] Chloride 99 96 - 110 mEq/L [facility] CO2 27 24 - 32 mEq/L [facility] 05/23/2008 18:2 4 EST 05/23/2008 18:24 EST Jose Alejandro Castro MD CHEMISTRY & BLOOD GAS ORDERABLE S Final Result Performing Organization Address [facility] de Phone Number [facility] [address] [place] [address] * ELECTROLYTES (05/23/2008 15:41 EST) Sodium 137 136 - 145 mEq/L [facility] Potassium 4.1 3.5 - 5.0 mEq/L [facility] Chloride 97 96 - 110 mEq/L [facility] CO2 26 24 - 32 mEq/L [facility] 05/23/2008 15:4 1 EST 05/23/2008 15:41 EST Jose Alejandro Castro MD CHEMISTRY & BLOOD GAS ORDERABLE S Final Result Performing Organization Address [facility] de Phone Number [facility] [address] [place] [address] * ELECTROLYTES (05/23/2008 11:58 EST) Sodium 137 136 - 145 mEq/L [facility] Potassium 3.6 3.5 - 5.0 mEq/L [facility] Chloride 99 96 - 110 mEq/L [facility] CO2 25 24 - 32 mEq/L [facility] 05/23/2008 11:5 8 EST 05/23/2008 11:58 EST Jose Alejandro Castro MD CHEMISTRY & BLOOD GAS ORDERABLE S Final Result Performing Organization Address [facility] de Phone Number [facility] [address] [place] [address] * ELECTROLYTES (05/23/2008 9:15 EST) Sodium 139 136 - 145 mEq/L [facility] Potassium 4.0 3.5 - 5.0 mEq/L [facility] Chloride 100 96 - 110 mEq/L [facility] CO2 26 24 - 32 mEq/L [facility] 05/23/2008 9:15 EST 05/23/2008 9:15 EST Jose Alejandro Castro MD CHEMISTRY & BLOOD GAS ORDERABLE S Final Result Performing Organization Address [facility] de Phone Number [facility] [address] [place] [address] * GLUCOSE, GLUCOMETER (05/23/2008 9:11 EST) Glucose, Fingerstick 90 70 - 100 mg/dl [facility] Poolroom/Poolhall Manager [place] [id number] Test Performed by Nursing Services [facility] 05/23/2008 9:11 EST 05/23/2008 23:07 EST Jose Alejandro Castro MD CHEMISTRY & BLOOD GAS ORDERABLE S Final Result Performing Organization Address [facility]/State/ZIP Co de Phone Number [facility] [address] [place] [address] * CREATININE (05/23/2008 6:00 EST) Creatinine 0.60 0.6 - 1.2 mg/dl [facility] GFR, Calculated Age <18 ml/min/1.7 3m2 [facility] 05/23/2008 6:00 EST 05/23/2008 6:11 EST Jose Alejandro Castro MD CHEMISTRY & BLOOD GAS ORDERABLE S Final Result Performing Organization Address [facility] Co de Phone Number [facility] [address] [place] [address] * BUN (05/23/2008 6:00 EST) BUN 13 8 - 21 mg/dl [facility] 05/23/2008 6:00 EST 05/23/2008 6:11 EST Jose Alejandro Castro MD CHEMISTRY & BLOOD GAS ORDERABLE S Final Result Performing Organization Address [facility] de Phone Number [facility] [address] [place] [address] * (ABNORMAL) ELECTROLYTES (05/23/2008 6:00 EST) Sodium 134(L) 136 - 145 mEq/L [facility] Potassium 4.4 3.5 - 5.0 mEq/L [facility] Chloride 99 96 - 110 mEq/L [facility] CO2 25 24 - 32 mEq/L [facility] 05/23/2008 6:00 EST 05/23/2008 6:11 EST Jose Alejandro Castro MD CHEMISTRY & BLOOD GAS ORDERABLE S Final Result Performing Organization Address [facility]/ZIP Co de Phone Number [facility] [address] [place] [address] * (ABNORMAL) GLUCOSE, GLUCOMETER (05/23/2008 3:59 EST) Glucose, Fingerstick 105(H) 70 - 100 mg/dl [facility] Poolroom/Poolhall Manager [place] [id number] Test Performed by Nursing Services [facility] 05/23/2008 3:59 EST 05/23/2008 23:07 EST Jose Alejandro Castro MD CHEMISTRY & BLOOD GAS ORDERABLE S Final Result Performing Organization Address [facility] Co de Phone Number [facility] [address] [place] [address] * GLUCOSE, SERUM (05/23/2008 3:00 EST) Glucose, Serum 76 70 - 100 mg/dl [facility] 05/23/2008 3:00 EST 05/23/2008 3:05 EST Jose Alejandro Castro MD CHEMISTRY & BLOOD GAS ORDERABLE S Final Result Performing Organization Address [facility] de Phone Number [facility] [address] [place] [address] * (ABNORMAL) ELECTROLYTES (05/23/2008 3:00 EST) Sodium 132(L) 136 - 145 mEq/L [facility] Potassium 4.2 3.5 - 5.0 mEq/L [facility] Chloride 99 96 - 110 mEq/L [facility] CO2 24 24 - 32 mEq/L [facility] 05/23/2008 3:00 EST 05/23/2008 3:05 EST Jose Alejandro Castro MD CHEMISTRY & BLOOD GAS ORDERABLE S Final Result Performing Organization Address [facility] de Phone Number [facility] [address] [place] [address] * (ABNORMAL) GLUCOSE, GLUCOMETER (05/23/2008 0:16 EST) Glucose, Fingerstick 104(H) 70 - 100 mg/dl [facility] Poolroom/Poolhall Manager ID [id number] Test Performed by Nursing Services [facility] 05/23/2008 0:16 EST 05/23/2008 23:07 EST Jose Alejandro Castro MD CHEMISTRY & BLOOD GAS ORDERABLE S Final Result Performing Organization Address [facility] de Phone Number [facility] [address] [place] [address] * (ABNORMAL) ELECTROLYTES (05/23/2008 0:15 EST) Sodium 133(L) 136 - 145 mEq/L [facility] Potassium 4.1 3.5 - 5.0 mEq/L [facility] Chloride 95(L) 96 - 110 mEq/L [facility] CO2 26 24 - 32 mEq/L [facility] 05/23/2008 0:15 EST 05/23/2008 0:23 EST Jose Alejandro Castro MD CHEMISTRY & BLOOD GAS ORDERABLE S Final Result Performing Organization Address [facility] de Phone Number [facility] [address] [place] [address] * GLUCOSE, SERUM (05/22/2008 21:25 EST) Glucose, Serum 90 70 - 100 mg/dl [facility] 05/22/2008 21:2 5 EST 05/22/2008 21:32 EST Jose Alejandro Castro MD CHEMISTRY & BLOOD GAS ORDERABLE S Final Result Performing Organization Address [facility] de Phone Number [facility] [address] [place] [address] * (ABNORMAL) ELECTROLYTES (05/22/2008 21:25 EST) Sodium [...] ORDERABLE S Final Result Performing Organization Address [facility] Phone Number [facility] [address] [place] [address] * (ABNORMAL) ELECTROLYTES (05/22/2008 18:10 EST) Sodium [...] ORDERABLE S Final Result Performing Organization Address [facility] Phone Number [facility] [address] [place] [address] * (ABNORMAL) GLUCOSE, GLUCOMETER (05/22/2008 18:08 EST) Glucose, Fingerstick 101(H) 70 - 100 mg/dl [facility] Poolroom/Poolhall Manager ID [id number] Test Performed by Nursing Services [facility] 05/22/2008 18:0 8 EST 05/22/2008 23:44 EST Jose Alejandro Castro MD CHEMISTRY & BLOOD GAS ORDERABLE S Final Result Performing Organization Address [facility] Phone Number [facility] [address] [place] [address] * (ABNORMAL) ELECTROLYTES (05/22/2008 14:22 EST) Sodium [...] ORDERABLE S Final Result Performing Organization Address [facility] de Phone Number [facility] [address] [place] [address] * (ABNORMAL) ELECTROLYTES (05/22/2008 10:11 EST) Sodium [...] ORDERABLE S Final Result Performing Organization Address [facility] de Phone Number [facility] [address] [place] [address] * ELECTROLYTES (05/22/2008 6:25 EST) Sodium 136 136 - 145 mEq/L [facility] Potassium 4.1 3.5 - 5.0 mEq/L [facility] Chloride 102 96 - 110 mEq/L [facility] CO2 25 24 - 32 mEq/L [facility] 05/22/2008 6:25 EST 05/22/2008 6:33 EST Jose Alejandro Castro MD CHEMISTRY & BLOOD GAS ORDERABLE S Final Result Performing Organization Address [facility] Co de Phone Number [facility] [address] [place] [address] * CREATININE (05/22/2008 3:15 EST) Creatinine 0.70 0.6 - 1.2 mg/dl [facility] GFR, Calculated Age <18 ml/min/1.7 3m2 [facility] 05/22/2008 3:15 EST 05/22/2008 3:20 EST Jose Alejandro Castro MD CHEMISTRY & BLOOD GAS ORDERABLE S Final Result Performing Organization Address [facility] de Phone Number [facility] [address] [place] [address] * BUN (05/22/2008 3:15 EST) BUN 15 8 - 21 mg/dl [facility] 05/22/2008 3:15 EST 05/22/2008 3:20 EST Jose Alejandro Castro MD CHEMISTRY & BLOOD GAS ORDERABLE S Final Result Performing Organization Address [facility] de Phone Number [facility] [address] [place] [address] * ELECTROLYTES (05/22/2008 3:15 EST) Sodium 137 136 - 145 mEq/L [facility] Potassium 4.2 3.5 - 5.0 mEq/L [facility] Chloride 103 96 - 110 mEq/L [facility] CO2 24 24 - 32 mEq/L [facility] 05/22/2008 3:15 EST 05/22/2008 3:20 EST Result [facility] Jose Alejandro Castro MD CHEMISTRY & BLOOD GAS ORDERABLE S Final Result Performing Organization Address [facility] Co de Phone Number [facility] [address] [place] [address] * GLUCOSE, GLUCOMETER (05/22/2008 3:14 EST) Glucose, Fingerstick 97 70 - 100 mg/dl [facility] Poolroom/Poolhall Manager ID [id number] Test Performed by Nursing Services [facility] 05/22/2008 3:14 EST 05/22/2008 23:43 EST Jose Alejandro Castro MD CHEMISTRY & BLOOD GAS ORDERABLE S Final Result Performing Organization Address [facility] Co de Phone Number [facility] [address] [place] [address] * GLUCOSE, GLUCOMETER (05/21/2008 23:09 EST) Glucose, Fingerstick 82 70 - 100 mg/dl [facility] Poolroom/Poolhall Manager ID [id number] Test Performed by Nursing Services [facility] 05/21/2008 23:0 9 EST 05/21/2008 23:11 EST Jose Alejandro Castro MD CHEMISTRY & BLOOD GAS ORDERABLE S Final Result Performing Organization Address [facility] de Phone Number [facility] [address] [place] [address] * ELECTROLYTES (05/21/2008 23:05 EST) Sodium 140 136 - 145 mEq/L [facility] Potassium 4.5 3.5 - 5.0 mEq/L [facility] Chloride 105 96 - 110 mEq/L [facility] CO2 24 24 - 32 mEq/L [facility] 05/21/2008 23:0 5 EST 05/21/2008 23:18 EST Jose Alejandro Castro MD CHEMISTRY & BLOOD GAS ORDERABLE S Final Result Performing Organization Address [facility] de Phone Number [facility] [address] [place] [address] * ELECTROLYTES (05/21/2008 19:02 EST) Sodium 141 136 - 145 mEq/L [facility] Potassium 4.1 3.5 - 5.0 mEq/L [facility] Chloride 103 96 - 110 mEq/L [facility] CO2 26 24 - 32 mEq/L [facility] 05/21/2008 19:0 2 EST 05/21/2008 19:04 EST Jose Alejandro Castro MD CHEMISTRY & BLOOD GAS ORDERABLE S Final Result Performing Organization Address [facility] de Phone Number [facility] [address] [place] [address] * ELECTROLYTES (05/21/2008 15:20 EST) Sodium 141 136 - 145 mEq/L [facility] Potassium 4.3 3.5 - 5.0 mEq/L [facility] Chloride 104 96 - 110 mEq/L [facility] CO2 28 24 - 32 mEq/L [facility] 05/21/2008 15:2 0 EST 05/21/2008 15:21 EST Jose Alejandro Castro MD CHEMISTRY & BLOOD GAS ORDERABLE S Final Result Performing Organization Address [facility] de Phone Number [facility] [address] [place] [address] * (ABNORMAL) GLUCOSE, GLUCOMETER (05/21/2008 10:49 EST) Glucose, Fingerstick 137(H) 70 - 100 mg/dl [facility] Poolroom/Poolhall Manager [place] [id number] Test Performed by Nursing Services [facility] 05/21/2008 10:4 9 EST 05/21/2008 23:05 EST us Jose Alejandro Castro MD CHEMISTRY & BLOOD GAS ORDERABLE S Final Result Performing Organization Address [facility] de Phone Number [facility] [address] [place] [address] * ELECTROLYTES (05/21/2008 10:44 EST) Sodium 143 [...] ORDERABLE S Final Result Performing Organization Address [facility]/State/ZIP Co de Phone Number [facility] [address] [place] [address] * (ABNORMAL) GLUCOSE, SERUM (05/21/2008 6:17 EST) Glucose, Serum 66(L) 70 - 100 mg/dl [facility] 05/21/2008 6:17 EST 05/21/2008 6:17 EST Jose Alejandro Castro MD CHEMISTRY & BLOOD GAS ORDERABLE S Final Result Performing Organization Address [facility] Co de Phone Number [facility] [address] [place] [address] * CREATININE (05/21/2008 6:17 EST) Pathologist [facility] Creatinine 0.66 0.6 - 1.2 mg/dl [facility] GFR, Calculated Age <18 ml/min/1.7 3m2 [facility] 05/21/2008 6:17 EST 05/21/2008 6:17 EST Jose Alejandro Castro MD CHEMISTRY & BLOOD GAS ORDERABLE S Final Result Performing Organization Address [facility] de Phone Number [facility] [address] [place] [address] * BUN (05/21/2008 6:17 EST) BUN 12 8 - 21 mg/dl [facility] 05/21/2008 6:17 EST 05/21/2008 6:17 EST Jose Alejandro Castro MD CHEMISTRY & BLOOD GAS ORDERABLE S Final Result Performing Organization Address City/[facility]/ZIP Co de Phone Number [facility] [address] [place] [address] * ELECTROLYTES (05/21/2008 6:17 EST) Sodium 142 136 - 145 mEq/L [facility] Potassium 4.3 3.5 - 5.0 mEq/L [facility] Chloride 109 96 - 110 mEq/L [facility] CO2 26 24 - 32 mEq/L [facility] 05/21/2008 6:17 EST 05/21/2008 6:17 EST Jose Alejandro Castro MD CHEMISTRY & BLOOD GAS ORDERABLE S Final Result Performing Organization Address [facility] de Phone Number [facility] [address] [place] [address] * (ABNORMAL) ELECTROLYTES (05/21/2008 2:10 EST) Sodium 144 136 - 145 mEq/L [facility] Potassium 4.9 3.5 - 5.0 mEq/L [facility] Chloride 112(H) 96 - 110 mEq/L [facility] CO2 22(L) 24 - 32 mEq/L [facility] 05/21/2008 2:10 EST 05/21/2008 2:10 EST Jose Alejandro Castro MD CHEMISTRY & BLOOD GAS ORDERABLE S Final Result Performing Organization Address [facility] Co de Phone Number [facility] [address] [place] [address] * GLUCOSE, SERUM (05/20/2008 22:13 EST) Glucose, Serum 89 70 - 100 mg/dl [facility] 05/20/2008 22:1 3 EST 05/20/2008 22:13 EST Jose Alejandro Castro MD CHEMISTRY & BLOOD GAS ORDERABLE S Final Result Performing Organization Address City/[facility] Co de Phone Number [facility] [address] [place] [address] * (ABNORMAL) ELECTROLYTES (05/20/2008 22:13 EST) Sodium [...] ORDERABLE S Final Result Performing Organization Address [facility] de Phone Number [facility] [address] [place] [address] * ELECTROLYTES (05/20/2008 18:35 EST) Sodium 143 136 - 145 mEq/L [facility] Comment:Heparinized plasma. Potassium 4.0 3.5 - 5.0 mEq/L [facility] Comment:Heparinized plasma. Chloride 105 96 - 110 mEq/L [facility] Comment:Heparinized plasma. CO2 25 24 - 32 mEq/L [facility] Comment:Heparinized plasma. 05/20/2008 18:3 5 EST 05/20/2008 18:35 EST Jose Alejandro Castro MD CHEMISTRY & BLOOD GAS ORDERABLE S Final Result Performing Organization Address [facility] Phone Number [facility] [address] [place] [address] * ELECTROLYTES (05/20/2008 15:21 EST) Sodium 140 [...] ORDERABLE S Final Result Performing Organization Address [facility] Phone Number [facility] [address] [place] [address] * ELECTROLYTES (05/20/2008 11:47 EST) Sodium 140 [...] ORDERABLE S Final Result Performing Organization Address City/[facility] Co de Phone Number [facility] [address] [place] [address] * PREALBUMIN (05/20/2008 9:38 EST) Prealbumin 33 mg/dl [facility] 05/20/2008 9:38 EST 05/20/2008 9:38 EST Jose Alejandro Castro MD CHEMISTRY & BLOOD GAS ORDERABLE S Final Result Performing Organization Address City/[facility] Co de Phone Number [facility] [address] [place] [address] * (ABNORMAL) ELECTROLYTES (05/20/2008 9:38 EST) Sodium 133(L) 136 - 145 mEq/L [facility] Potassium 4.8 3.5 - 5.0 mEq/L [facility] Chloride 96 96 - 110 mEq/L [facility] CO2 28 24 - 32 mEq/L [facility] 05/20/2008 9:38 EST 05/20/2008 9:38 EST Jose Alejandro Castro MD CHEMISTRY & BLOOD GAS ORDERABLE S Final Result Performing Organization Address City/[facility]/ZIP Co de Phone Number [facility] [address] [place] [address] * TESTS ADDED BY PHONE (05/20/2008 9:38 EST) Tests to be added PAL[facility] Who Called [facility] Location Code [id number] [facility] 05/20/2008 9:38 EST 05/20/2008 9:38 EST Jose Alejandro Castro MD CHEMISTRY & BLOOD GAS ORDERABLE S Final Result Performing Organization Address City/[facility]/ZIP Co de Phone Number [facility] [address] [place] [address] * (ABNORMAL) ELECTROLYTES (05/20/2008 5:50 EST) Sodium 128(L) 136 - 145 mEq/L [facility] Potassium 4.5 3.5 - 5.0 mEq/L [facility] Chloride 93(L) 96 - 110 mEq/L [facility] CO2 26 24 - 32 mEq/L [facility] 05/20/2008 5:50 EST 05/20/2008 5:58 EST Jose Alejandro Castro MD CHEMISTRY & BLOOD GAS ORDERABLE S Final Result Performing Organization Address [facility] Co de Phone Number [facility] [address] [place] [address] * (ABNORMAL) ELECTROLYTES (05/20/2008 2:50 EST) Sodium 127(L) 136 - 145 mEq/L [facility] Potassium 4.6 3.5 - 5.0 mEq/L [facility] Chloride 92(L) 96 - 110 mEq/L [facility] CO2 26 24 - 32 mEq/L [facility] 05/20/2008 2:50 EST 05/20/2008 2:51 EST Jose Alejandro Castro MD CHEMISTRY & BLOOD GAS ORDERABLE S Final Result Performing Organization Address City/[facility]/ZIP Co de Phone Number [facility] [address] [place] [address] * CREATININE (05/20/2008 0:00 EST) Creatinine 0.70 0.6 - 1.2 mg/dl [facility] GFR, Calculated Age <18 ml/min/1.7 3m2 [facility] 05/20/2008 05/20/2008 0:1 4 EST Jose Alejandro Castro MD CHEMISTRY & BLOOD GAS ORDERABLE S Final Result Performing Organization Address [facility] Co de Phone Number [facility] [address] [place] [address] * BUN (05/20/2008 0:00 EST) BUN 15 8 - 21 mg/dl [facility] 05/20/2008 05/20/2008 0:1 4 EST Jose Alejandro Castro MD CHEMISTRY & BLOOD GAS ORDERABLE S Final Result Performing Organization Address [facility] Co de Phone Number [facility] [address] [place] [address] * (ABNORMAL) ELECTROLYTES (05/20/2008 0:00 EST) Sodium 127(L) 136 - 145 mEq/L [facility] Potassium 4.7 3.5 - 5.0 mEq/L [facility] Chloride 92(L) 96 - 110 mEq/L [facility] CO2 26 24 - 32 mEq/L [facility] 05/20/2008 05/20/2008 0:1 4 EST Jose Alejandro Castro MD CHEMISTRY & BLOOD GAS ORDERABLE S Final Result Performing Organization Address City/[facility] Co de Phone Number [facility] [address] [place] [address] * (ABNORMAL) ELECTROLYTES (05/19/2008 18:10 EST) Sodium [...] ORDERABLE S Final Result Performing Organization Address [facility] de Phone Number [facility] [address] [place] [address] * (ABNORMAL) ELECTROLYTES (05/19/2008 13:40 EST) Sodium [...] ORDERABLE S Final Result Performing Organization Address [facility] de Phone Number [facility] [address] [place] [address] * SODIUM, URINE RANDOM (05/19/2008 12:00 EST) Sodium, Ur 123.0 mEq/L [facility] 05/19/2008 12:0 0 EST 05/19/2008 12:30 EST Jose Alejandro Castro MD URINALYSIS ORDERABLES Final Res ult Performing Organization Address [facility] de Phone Number [facility] [address] [place] [address] * PORTABLE CHEST 1 VIEW (05/19/2008 9:46 [...] 70 - 100 mg/dl [facility] Poolroom/Poolhall Manager ID [id number] Test Performed by Nursing Services [facility] 05/19/2008 9:38 EST 05/20/2008 23:05 EST Jose Alejandro Castro MD CHEMISTRY & BLOOD GAS ORDERABLE S Final Result Performing Organization Address [facility] de Phone Number [facility] [address] [place] [address] * (ABNORMAL) ELECTROLYTES (05/19/2008 9:35 EST) Sodium [...] ORDERABLE S Final Result Performing Organization Address [facility] de Phone Number [facility] [address] [place] [address] * (ABNORMAL) ELECTROLYTES (05/19/2008 6:00 EST) Sodium 126(L) 136 - 145 mEq/L [facility] Potassium 4.2 3.5 - 5.0 mEq/L [facility] Chloride 90(L) 96 - 110 mEq/L [facility] CO2 26 24 - 32 mEq/L [facility] 05/19/2008 6:00 EST 05/19/2008 6:04 EST Jose Alejandro Castro MD CHEMISTRY & BLOOD GAS ORDERABLE S Final Result Performing Organization Address [facility] de Phone Number [facility] [address] [place] [address] * GLUCOSE, SERUM (05/19/2008 2:58 EST) Glucose, Serum 72 70 - 100 mg/dl [facility] 05/19/2008 2:58 EST 05/19/2008 2:59 EST Jose Alejandro Castro MD CHEMISTRY & BLOOD GAS ORDERABLE S Final Result Performing Organization Address [facility]/ZIP Co de Phone Number [facility] [address] [place] [address] * CREATININE (05/19/2008 2:58 EST) Creatinine 0.60 0.6 - 1.2 mg/dl [facility] GFR, Calculated Age <18 ml/min/1.7 3m2 [facility] 05/19/2008 2:58 EST 05/19/2008 2:59 EST Jose Alejandro Castro MD CHEMISTRY & BLOOD GAS ORDERABLE S Final Result Performing Organization Address [facility] de Phone Number [facility] [address] [place] [address] * BUN (05/19/2008 2:58 EST) BUN 9 8 - 21 mg/dl [facility] 05/19/2008 2:58 EST 05/19/2008 2:59 EST Jose Alejandro Castro MD CHEMISTRY & BLOOD GAS ORDERABLE S Final Result Performing Organization Address [facility] de Phone Number [facility] [address] [place] [address] * (ABNORMAL) ELECTROLYTES (05/19/2008 2:58 EST) Sodium 127(L) 136 - 145 mEq/L [facility] Potassium 4.1 3.5 - 5.0 mEq/L [facility] Chloride 91(L) 96 - 110 mEq/L [facility] CO2 27 24 - 32 mEq/L [facility] 05/19/2008 2:58 EST 05/19/2008 2:59 EST Jose Alejandro Castro MD CHEMISTRY & BLOOD GAS ORDERABLE S Final Result Performing Organization Address [facility] Co de Phone Number [facility] [address] [place] [address] * OSMOLALITY, URINE (05/18/2008 21:20 EST) Osmolality, Ur 639 MOS/KG [facility] 05/18/2008 21:2 0 EST 05/18/2008 21:23 EST us Jose Alejandro Castro MD URINALYSIS ORDERABLES Final Res ult Performing Organization Address [facility] de Phone Number [facility] [address] [place] [address] * SODIUM, URINE RANDOM (05/18/2008 21:20 EST) Sodium, Ur 289.0 mEq/L [facility] 05/18/2008 21:2 0 EST 05/18/2008 21:23 EST us Jose Alejandro Casrto MD URINALYSIS ORDERABLES Final Res ult Performing Organization Address [facility] Phone Number [facility] [address] [place] [address] * POTASSIUM, URINE RANDOM (05/18/2008 21:20 EST) Potassium, Urine 34.4 mEq/L [facility] 05/18/2008 21:2 0 EST 05/18/2008 21:23 EST us Jose Alejandro Castro MD URINALYSIS ORDERABLES Final Res ult Performing Organization Address [facility] de Phone Number [facility] [address] [place] [address] * CREATININE, URINE RANDOM (05/18/2008 21:20 EST) Creatinine, Urn [place] 25.1 mg/dl [facility] 05/18/2008 21:2 0 EST 05/18/2008 21:23 EST us Jose Alejandro Castro MD URINALYSIS ORDERABLES Final Res ult Performing Organization Address [facility] de Phone Number [facility] [address] [place] [address] * CALCIUM, IONIZED (05/18/2008 21:17 EST) Calcium, Ionized 1.17 1.12 - 1.32 mmol/L [facility] [place] [id number] Test performed by Chemistry [facility] 05/18/2008 21:1 7 EST 05/18/2008 21:20 EST Jose Alejandro Castro MD CHEMISTRY & BLOOD GAS ORDERABLE S Final Result Performing Organization Address [facility] Co de Phone Number [facility] [address] [place] [address] * GLUCOSE, SERUM (05/18/2008 21:00 EST) Glucose, Serum 77 70 - 100 mg/dl [facility] 05/18/2008 21:0 0 EST 05/18/2008 21:07 EST Jose Alejandro Castro MD CHEMISTRY & BLOOD GAS ORDERABLE S Final Result Performing Organization Address [facility] de Phone Number [facility] [address] [place] [address] * PHOSPHORUS (05/18/2008 21:00 EST) Phosphorus 3.4 2.7 - 4.7 mg/dl [facility] 05/18/2008 21:0 0 EST 05/18/2008 21:07 EST Jose Alejandro Castro MD CHEMISTRY & BLOOD GAS ORDERABLE S Final Result Performing Organization Address [facility] Co de Phone Number [facility] [address] [place] [address] * MAGNESIUM (05/18/2008 21:00 EST) Magnesium 1.8 1.7 - 2.8 mg/dl [facility] 05/18/2008 21:0 0 EST 05/18/2008 21:07 EST Jose Alejandro Castro MD CHEMISTRY & BLOOD GAS ORDERABLE S Final Result Performing Organization Address [facility]/ZIP Co de Phone Number [facility] [address] [place] [address] * CREATININE (05/18/2008 21:00 EST) Creatinine 0.60 0.6 - 1.2 mg/dl [facility] GFR, Calculated Age <18 ml/min/1.7 3m2 [facility] 05/18/2008 21:0 0 EST 05/18/2008 21:07 EST Jose Alejandro Castro MD CHEMISTRY & BLOOD GAS ORDERABLE S Final Result Performing Organization Address [facility] de Phone Number [facility] [address] [place] [address] * BUN (05/18/2008 21:00 EST) BUN 8 8 - 21 mg/dl [facility] 05/18/2008 21:0 0 EST 05/18/2008 21:07 EST Jose Alejandro Castro MD CHEMISTRY & BLOOD GAS ORDERABLE S Final Result Performing Organization Address [facility] de Phone Number [facility] [address] [place] [address] * (ABNORMAL) ELECTROLYTES (05/18/2008 21:00 EST) Sodium [...] ORDERABLE S Final Result Performing Organization Address City/[facility]/ZIP Co de Phone Number [facility] [address] [place] [address] * CALCIUM IONIZED (05/18/2008 21:00 EST) Ionized Calcium Note Sample sent to Lab. [facility] 05/18/2008 21:0 0 EST 05/18/2008 21:07 EST Jose Alejandro Castro MD CHEMISTRY & BLOOD GAS ORDERABLE S Final Result Performing Organization Address [facility] de Phone Number [facility] [address] [place] [address] * GLUCOSE, GLUCOMETER (05/18/2008 15:50 EST) Glucose, Fingerstick 90 70 - 100 mg/dl [facility] Poolroom/Poolhall Manager ID [id number] Test Performed by Nursing Services [facility] 05/18/2008 15:5 0 EST 05/18/2008 23:25 EST us Jose Alejandro Castro MD CHEMISTRY & BLOOD GAS ORDERABLE S Final Result Performing Organization Address [facility] Phone Number [facility] [address] [place] [address] * (ABNORMAL) ELECTROLYTES (05/18/2008 15:48 EST) Sodium [...] ORDERABLE S Final Result Performing Organization Address [facility] de Phone Number [facility] [address] [place] [address] * GLUCOSE, GLUCOMETER (05/18/2008 9:24 EST) Glucose, Fingerstick 88 70 - 100 mg/dl [facility] Poolroom/Poolhall Manager ID [id number] Test Performed by Nursing Services [facility] 05/18/2008 9:24 EST 05/18/2008 23:25 EST Jose Alejandro Castro MD CHEMISTRY & BLOOD GAS ORDERABLE S Final Result Performing Organization Address [facility] de Phone Number [facility] [address] [place] [address] * ELECTROLYTES (05/18/2008 9:20 EST) Sodium 140 [...] ORDERABLE S Final Result Performing Organization Address [facility] Phone Number [facility] [address] [place] [address] * GLUCOSE, SERUM (05/18/2008 3:00 EST) Glucose, Serum 97 70 - 100 mg/dl [facility] 05/18/2008 3:00 EST 05/18/2008 3:15 EST Jose Alejandro Castro MD CHEMISTRY & BLOOD GAS ORDERABLE S Final Result Performing Organization Address [facility] Co de Phone Number [facility] [address] [place] [address] * CREATININE (05/18/2008 3:00 EST) Creatinine 0.60 0.6 - 1.2 mg/dl [facility] GFR, Calculated Age <18 ml/min/1.7 3m2 [facility] 05/18/2008 3:00 EST 05/18/2008 3:15 EST us Jose Alejandro Castro MD CHEMISTRY & BLOOD GAS ORDERABLE S Final Result Performing Organization Address [facility] Phone Number [facility] [address] [place] [address] * BUN (05/18/2008 3:00 EST) BUN 9 8 - 21 mg/dl [facility] 05/18/2008 3:00 EST 05/18/2008 3:15 EST us Jose Alejandro Castro MD CHEMISTRY & BLOOD GAS ORDERABLE S Final Result Performing Organization Address [facility] Phone Number [facility] [address] [place] [address] * ELECTROLYTES (05/18/2008 3:00 EST) Sodium 142 136 - 145 mEq/L [facility] Potassium 3.5 3.5 - 5.0 mEq/L [facility] Chloride 105 96 - 110 mEq/L [facility] CO2 26 24 - 32 mEq/L [facility] 05/18/2008 3:00 EST 05/18/2008 3:15 EST us Jose Alejandro Castro MD CHEMISTRY & BLOOD GAS ORDERABLE S Final Result Performing Organization Address [facility] de Phone Number [facility] [address] [place] [address] * GLUCOSE, SERUM (05/17/2008 21:10 EST) Glucose, Serum 82 70 - 100 mg/dl [facility] 05/17/2008 21:1 0 EST 05/17/2008 21:30 EST us Jose Alejandro Castro MD CHEMISTRY & BLOOD GAS ORDERABLE S Final Result Performing Organization Address [facility]/ZIP Co de Phone Number [facility] [address] [place] [address] * ELECTROLYTES (05/17/2008 21:10 EST) Sodium 142 136 - 145 mEq/L [facility] Potassium 4.1 3.5 - 5.0 mEq/L [facility] Chloride 105 96 - 110 mEq/L [facility] CO2 27 24 - 32 mEq/L [facility] 05/17/2008 21:1 0 EST 05/17/2008 21:30 EST Jose Alejandro Castro MD CHEMISTRY & BLOOD GAS ORDERABLE S Final Result Performing Organization Address [facility] Co de Phone Number [facility] [address] [place] [address] * GLUCOSE, SERUM (05/17/2008 15:00 EST) Glucose, Serum 86 70 - 100 mg/dl [facility] 05/17/2008 15:0 0 EST 05/17/2008 15:16 EST Jose Alejandro Castro MD CHEMISTRY & BLOOD GAS ORDERABLE S Final Result Performing Organization Address [facility] de Phone Number [facility] [address] [place] [address] * ELECTROLYTES (05/17/2008 15:00 EST) Sodium 137 [...] ORDERABLE S Final Result Performing Organization Address [facility] Co de Phone Number [facility] [address] [place] [address] * (ABNORMAL) T4 FREE (05/17/2008 9:00 EST) Free T4 0.7(L) 0.8 - 1.5 ng/dL [facility] 05/17/2008 9:00 EST 05/17/2008 9:29 EST Jose Alejandro Castro MD CHEMISTRY & BLOOD GAS ORDERABLE S Final Result Performing Organization Address [facility] Phone Number [facility] [address] [place] [address] * TESTS ADDED BY PHONE (05/17/2008 9:00 EST) Pathologist [facility] Tests to be added FT4 [facility] Who Called [facility] Location Code M3 [facility] 05/17/2008 9:00 EST 05/17/2008 9:29 EST Jose Alejandro Castro MD CHEMISTRY & BLOOD GAS ORDERABLE S Final Result Performing Organization Address [facility] Phone Number [facility] [address] [place] [address] * GLUCOSE, SERUM (05/17/2008 9:00 EST) [facility] Glucose, Serum 87 70 - 100 mg/dl [facility] Comment:Heparinized plasma. 05/17/2008 9:00 EST 05/17/2008 9:29 EST Jose Alejandro Castro MD CHEMISTRY & BLOOD GAS ORDERABLE S Final Result Performing Organization Address [facility] Phone Number [facility] [address] [place] [address] * (ABNORMAL) ELECTROLYTES (05/17/2008 9:00 EST) [facility] Sodium 135(L) 136 - 145 mEq/L [...] ORDERABLE S Final Result Performing Organization Address [facility] de Phone Number [facility] [address] [place] [address] * HOLD GREEN TOP (05/17/2008 5:48 EST) Hold Green Top Hold for further testing. Specimen will be held for 5 days. [facility] 05/17/2008 5:48 EST 05/17/2008 5:48 EST Jose Alejandro Castro MD LAB INFO SERVICE AND SUPPORT & PHONE RESULT Final Result Performing Organization Address [facility] de Phone Number [facility] [address] [place] [address] * HOLD PURPLE TOP (05/17/2008 5:46 EST) Hold Purple Top EDTA for hematology will be discarded after 48 hours, differential not available after 12 hours. [facility] 05/17/2008 5:46 EST 05/17/2008 5:46 EST Jose Alejandro Castro MD LAB INFO SERVICE AND SUPPORT & PHONE RESULT Final Result Performing Organization Address [facility] de Phone Number [facility] [address] [place] [address] * (ABNORMAL) HEMAGRAM (05/17/2008 5:46 EST) WBC 9.92 4.6 - 11.2 K/cmm [facility] RBC 3.69(L) 4.50 - 5.30 M/cmm [facility] Hemoglobin 9.9(L) 13.0 - 16.0 gm/dl [facility] HCT 29.2(L) 37.0 - 49.0 % [facility] MCV 79 78 - 98 fl [facility] MCH 26.7 pg [facility] MCHC 33.7 gm/dl [facility] PLT 638(H) 156 - 312 K/cmm [facility] RDW-CV 17.2 % [facility] 05/17/2008 5:46 EST 05/17/2008 5:46 EST Jose Alejandro Castro MD HEMATOLOGY & PF4 ORDERABLES Fin al Result Performing Organization Address [facility] Co de Phone Number [facility] [address] [place] [address] * GLUCOSE, SERUM (05/17/2008 5:46 EST) Glucose, Serum 76 70 - 100 mg/dl [facility] 05/17/2008 5:46 EST 05/17/2008 5:46 EST Jose Alejandro Castro MD CHEMISTRY & BLOOD GAS ORDERABLE S Final Result Performing Organization Address [facility] de Phone Number [facility] [address] [place] [address] * CREATININE (05/17/2008 5:46 EST) Creatinine 0.60 0.6 - 1.2 mg/dl [facility] GFR, Calculated Age <18 ml/min/1.7 3m2 [facility] 05/17/2008 5:46 EST 05/17/2008 5:46 EST Jose Alejandro Castro MD CHEMISTRY & BLOOD GAS ORDERABLE S Final Result Performing Organization Address [facility] de Phone Number [facility] [address] [place] [address] * (ABNORMAL) BUN (05/17/2008 5:46 EST) BUN 7(L) 8 - 21 mg/dl [facility] 05/17/2008 5:46 EST 05/17/2008 5:46 EST us Jose Alejandro Castro MD CHEMISTRY & BLOOD GAS ORDERABLE S Final Result Performing Organization Address [facility] de Phone Number [facility] [address] [place] [address] * ELECTROLYTES (05/17/2008 5:46 EST) Sodium 137 136 - 145 mEq/L [facility] Potassium 4.0 3.5 - 5.0 mEq/L [facility] Chloride 101 96 - 110 mEq/L [facility] CO2 26 24 - 32 mEq/L [facility] 05/17/2008 5:46 EST 05/17/2008 5:46 EST us Jose Alejandro Castro MD CHEMISTRY & BLOOD GAS ORDERABLE S Final Result Performing Organization Address [facility] Phone Number [facility] [address] [place] [address] * GLUCOSE, SERUM (05/17/2008 2:09 EST) Glucose, Serum 79 70 - 100 mg/dl [facility] 05/17/2008 2:09 EST 05/17/2008 2:09 EST us Jose Alejandro Castro MD CHEMISTRY & BLOOD GAS ORDERABLE S Final Result Performing Organization Address [facility] de Phone Number [facility] [address] [place] [address] * ELECTROLYTES (05/17/2008 2:09 EST) Sodium 140 136 - 145 mEq/L [facility] Potassium 4.5 3.5 - 5.0 mEq/L [facility] Chloride 105 96 - 110 mEq/L [facility] CO2 26 24 - 32 mEq/L [facility] 05/17/2008 2:09 EST 05/17/2008 2:09 EST us Jose Alejandro Castro MD CHEMISTRY & BLOOD GAS ORDERABLE S Final Result Performing Organization Address [facility] Co de Phone Number [facility] [address] [place] [address] * GLUCOSE, SERUM (05/16/2008 22:09 EST) Glucose, Serum 92 70 - 100 mg/dl [facility] 05/16/2008 22:0 9 EST 05/16/2008 22:09 EST Jose Alejandro Castro MD CHEMISTRY & BLOOD GAS ORDERABLE S Final Result Performing Organization Address [facility] de Phone Number [facility] [address] [place] [address] * ELECTROLYTES (05/16/2008 22:09 EST) Sodium 144 136 - 145 mEq/L [facility] Potassium 3.8 3.5 - 5.0 mEq/L [facility] Chloride 108 96 - 110 mEq/L [facility] CO2 26 24 - 32 mEq/L [facility] 05/16/2008 22:0 9 EST 05/16/2008 22:09 EST Jose Alejandro Castro MD CHEMISTRY & BLOOD GAS ORDERABLE S Final Result Performing Organization Address [facility] Phone Number [facility] [address] [place] [address] * (ABNORMAL) GLUCOSE, SERUM (05/16/2008 18:53 EST) Glucose, Serum 106(H) 70 - 100 mg/dl [facility] 05/16/2008 18:5 3 EST 05/16/2008 18:54 EST Jose Alejandro Castro MD CHEMISTRY & BLOOD GAS ORDERABLE S Final Result Performing Organization Address [facility] de Phone Number [facility] [address] [place] [address] * ELECTROLYTES (05/16/2008 18:53 EST) Sodium 138 136 - 145 mEq/L [facility] Potassium 3.7 3.5 - 5.0 mEq/L [facility] Chloride 102 96 - 110 mEq/L [facility] CO2 26 24 - 32 mEq/L [facility] 05/16/2008 18:5 3 EST 05/16/2008 18:54 EST Jose Alejandro Castro MD CHEMISTRY & BLOOD GAS ORDERABLE S Final Result Performing Organization Address [facility] de Phone Number [facility] [address] [place] [address] * (ABNORMAL) GLUCOSE, SERUM (05/16/2008 16:00 EST) Glucose, Serum 63(L) 70 - 100 mg/dl [facility] 05/16/2008 16:0 0 EST 05/16/2008 16:27 EST Jose Alejandro Castro MD CHEMISTRY & BLOOD GAS ORDERABLE S Final Result Performing Organization Address [facility] Phone Number [facility] [address] [place] [address] * (ABNORMAL) ELECTROLYTES (05/16/2008 16:00 EST) Sodium [...] ORDERABLE S Final Result Performing Organization Address [facility] de Phone Number [facility] [address] [place] [address] * (ABNORMAL) GLUCOSE, SERUM (05/16/2008 12:59 EST) Glucose, Serum 101(H) 70 - 100 mg/dl [facility] 05/16/2008 12:5 9 EST 05/16/2008 12:59 EST Jose Alejandro Castro MD CHEMISTRY & BLOOD GAS ORDERABLE S Final Result Performing Organization Address [facility] Co de Phone Number [facility] [address] [place] [address] * (ABNORMAL) ELECTROLYTES (05/16/2008 12:59 EST) Sodium [...] ORDERABLE S Final Result Performing Organization Address [facility] Co de Phone Number [facility] [address] [place] [address] * GLUCOSE, SERUM (05/16/2008 9:58 EST) Glucose, Serum 82 70 - 100 mg/dl [facility] 05/16/2008 9:58 EST 05/16/2008 9:58 EST Jose Alejandro Castro MD CHEMISTRY & BLOOD GAS ORDERABLE S Final Result Performing Organization Address [facility] Co de Phone Number [facility] [address] [place] [address] * (ABNORMAL) ELECTROLYTES (05/16/2008 9:58 EST) Sodium 138 136 - 145 mEq/L [facility] Potassium 4.4 3.5 - 5.0 mEq/L [facility] Chloride 106 96 - 110 mEq/L [facility] CO2 22(L) 24 - 32 mEq/L [facility] 05/16/2008 9:58 EST 05/16/2008 9:58 EST Jose Alejandro Castro MD CHEMISTRY & BLOOD GAS ORDERABLE S Final Result Performing Organization Address [facility] Co de Phone Number [facility] [address] [place] [address] * GLUCOSE, SERUM (05/16/2008 6:50 EST) Glucose, Serum 77 70 - 100 mg/dl [facility] 05/16/2008 6:50 EST 05/16/2008 7:05 EST Jose Alejandro Castro MD CHEMISTRY & BLOOD GAS ORDERABLE S Final Result Performing Organization Address [facility] de Phone Number [facility] [address] [place] [address] * ELECTROLYTES (05/16/2008 6:50 EST) Sodium 138 136 - 145 mEq/L [facility] Potassium 4.2 3.5 - 5.0 mEq/L [facility] Chloride 105 96 - 110 mEq/L [facility] CO2 26 24 - 32 mEq/L [facility] 05/16/2008 6:50 EST 05/16/2008 7:05 EST Jose Alejandro Castro MD CHEMISTRY & BLOOD GAS ORDERABLE S Final Result Performing Organization Address [facility] de Phone Number [facility] [address] [place] [address] * TESTS ADDED BY PHONE (05/16/2008 4:15 EST) Tests to be added HIVS,HBAG,HC AB CHARGE TO [id number] [facility] Who Called [facility] Location Code [facility] 05/16/2008 4:15 EST 05/16/2008 4:23 EST Jose Alejandro Castro MD CHEMISTRY & BLOOD GAS ORDERABLE S Final Result Performing Organization Address [facility]/ZIP Co de Phone Number [facility] [address] [place] [address] * TESTS ADDED BY PHONE (05/16/2008 4:15 EST) Tests to be added CARLOS HAY TO [facility] [id number] [facility] Who Called [email or web address] Location Code [facility] 05/16/2008 4:15 EST 05/16/2008 4:23 EST Jose Alejandro Castro MD CHEMISTRY & BLOOD GAS ORDERABLE S Final Result [facility] [address] [place] [address] * (ABNORMAL) TOTAL PROTEIN (05/16/2008 4:15 EST) Total Protein 5.5(L) 6.3 - 8.6 g/dl [facility] 05/16/2008 4:15 EST 05/16/2008 4:23 EST Jose Alejandro Castro MD CHEMISTRY & BLOOD GAS ORDERABLE S Final Result Performing Organization Address [facility]/ZIP Co de Phone Number [facility] [address] [place] [address] * GLUCOSE, SERUM (05/16/2008 4:15 EST) Glucose, Serum 100 70 - 100 mg/dl [facility] 05/16/2008 4:15 EST 05/16/2008 4:23 EST Jose Alejandro Castro MD CHEMISTRY & BLOOD GAS ORDERABLE S Final Result [facility] [address] [place] [address] * CREATININE (05/16/2008 4:15 EST) Creatinine 0.60 0.6 - 1.2 mg/dl [facility] GFR, Calculated Age <18 ml/min/1.7 3m2 [facility] 05/16/2008 4:15 EST 05/16/2008 4:23 EST us Jose Alejandro Castro MD CHEMISTRY & BLOOD GAS ORDERABLE S Final Result Performing Organization Address [facility] Co de Phone Number [facility] [address] [place] [address] * BUN (05/16/2008 4:15 EST) BUN 9 8 - 21 mg/dl [facility] 05/16/2008 4:15 EST 05/16/2008 4:23 EST us Jose Alejandro Castro MD CHEMISTRY & BLOOD GAS ORDERABLE S Final Result Performing Organization Address [facility] de Phone Number [facility] [address] [place] [address] * TOTAL & DIRECT BILIRUBIN (05/16/2008 4:15 EST) Conjugated Bilirubin 0.0 0.0 - 0.3 mg/dl [facility] Unconjugated Bilirubin 0.7 0.1 - 1.1 mg/dl [facility] Bilirubin, Total 0.7 0.0 - 1.4 mg/dl [facility] 05/16/2008 4:15 EST 05/16/2008 4:23 EST us Jose Alejandro Castro MD CHEMISTRY & BLOOD GAS ORDERABLE S Final Result Performing Organization Address [facility] Co de Phone Number [facility] [address] [place] [address] * AST (05/16/2008 4:15 EST) AST 25 15 - 46 U/L [facility] 05/16/2008 4:15 EST 05/16/2008 4:23 EST us Jose Alejandro Castro MD CHEMISTRY & BLOOD GAS ORDERABLE S Final Result Performing Organization Address [facility]/ZIP Co de Phone Number [facility] [address] [place] [address] * ALT (05/16/2008 4:15 EST) ALT 41 0 - 45 U/L [facility] 05/16/2008 4:15 EST 05/16/2008 4:23 EST Jose Alejandro Castro MD CHEMISTRY & BLOOD GAS ORDERABLE S Final Result Performing Organization Address [facility] de Phone Number [facility] [address] [place] [address] * ALKALINE PHOSPHATASE (05/16/2008 4:15 EST) Alkaline Phosphatase 96 65 - 260 U/L [facility] 05/16/2008 4:15 EST 05/16/2008 4:23 EST Jose Alejandro Castro MD CHEMISTRY & BLOOD GAS ORDERABLE S Final Result Performing Organization Address [facility] Phone Number [facility] [address] [place] [address] * (ABNORMAL) ALBUMIN (05/16/2008 4:15 EST) Albumin 2.7(L) 3.0 - 5.5 g/dl [facility] 05/16/2008 4:15 EST 05/16/2008 4:23 EST Jose Alejandro Castro MD CHEMISTRY & BLOOD GAS ORDERABLE S Final Result Performing Organization Address [facility] Phone Number [facility] [address] [place] [address] * ELECTROLYTES (05/16/2008 4:15 EST) Sodium 138 136 - 145 mEq/L [facility] Potassium 4.3 3.5 - 5.0 mEq/L [facility] Chloride 106 96 - 110 mEq/L [facility] CO2 25 24 - 32 mEq/L [facility] 05/16/2008 4:15 EST 05/16/2008 4:23 EST Jose Alejandro Castro MD CHEMISTRY & BLOOD GAS ORDERABLE S Final Result [facility] [address] [place] [address] * GLUCOSE, SERUM (05/16/2008 1:05 EST) Glucose, Serum 85 70 - 100 mg/dl [facility] 05/16/2008 1:05 EST 05/16/2008 1:32 EST Jose Alejandro Castro MD CHEMISTRY & BLOOD GAS ORDERABLE S Final Result Performing Organization Address [facility] Co de Phone Number [facility] [address] [place] [address] * ELECTROLYTES (05/16/2008 1:05 EST) Sodium 140 136 - 145 mEq/L [facility] Potassium 4.0 3.5 - 5.0 mEq/L [facility] Chloride 107 96 - 110 mEq/L [facility] CO2 26 24 - 32 mEq/L [facility] 05/16/2008 1:05 EST 05/16/2008 1:32 EST Jose Alejandro Castro MD CHEMISTRY & BLOOD GAS ORDERABLE S Final Result Performing Organization Address [facility] Co de Phone Number [facility] [address] [place] [address] * GLUCOSE, SERUM (05/15/2008 22:35 EST) Glucose, Serum 70 70 - 100 mg/dl [facility] 05/15/2008 22:3 5 EST 05/15/2008 22:43 EST Jose Alejandro Castro MD CHEMISTRY & BLOOD GAS ORDERABLE S Final Result Performing Organization Address [facility]/ZIP Co de Phone Number [facility] [address] [place] [address] * ELECTROLYTES (05/15/2008 22:35 EST) Sodium 140 136 - 145 mEq/L [facility] Potassium 4.8 3.5 - 5.0 mEq/L [facility] Chloride 106 96 - 110 mEq/L [facility] CO2 26 24 - 32 mEq/L [facility] 05/15/2008 22:3 5 EST 05/15/2008 22:43 EST Jose Alejandro Castro MD CHEMISTRY & BLOOD GAS ORDERABLE S Final Result Performing Organization Address [facility] de Phone Number [facility] [address] [place] [address] * GLUCOSE, SERUM (05/15/2008 19:35 EST) Glucose, Serum 87 70 - 100 mg/dl [facility] 05/15/2008 19:3 5 EST 05/15/2008 19:38 EST Jose Alejandro Castro MD CHEMISTRY & BLOOD GAS ORDERABLE S Final Result Performing Organization Address [facility] de Phone Number [facility] [address] [place] [address] * ELECTROLYTES (05/15/2008 19:35 EST) Sodium 137 [...] ORDERABLE S Final Result Performing Organization Address [facility] de Phone Number [facility] [address] [place] [address] * XRAY FEEDING TUBE PLACEMENT (05/15/2008 18:28 [...] 70 - 100 mg/dl [facility] Poolroom/Poolhall Manager ID [id number] Test Performed by Nursing Services [facility] 05/15/2008 17:2 9 EST 05/15/2008 23:00 EST Jose Alejandro Castro MD CHEMISTRY & BLOOD GAS ORDERABLE S Final Result [facility] [address] [place] [address] * (ABNORMAL) GLUCOSE, SERUM (05/15/2008 16:32 EST) Glucose, Serum 68(L) 70 - 100 mg/dl [facility] 05/15/2008 16:3 2 EST 05/15/2008 16:32 EST Jose Alejandro Castro MD CHEMISTRY & BLOOD GAS ORDERABLE S Final Result Performing Organization Address [facility] Phone Number [facility] [address] [place] [address] * (ABNORMAL) ELECTROLYTES (05/15/2008 16:32 EST) Sodium [...] ORDERABLE S Final Result Performing Organization Address [facility] Phone Number [facility] [address] [place] [address] * (ABNORMAL) ELECTROLYTES (05/15/2008 13:28 EST) [facility] Sodium 128(L) 136 - 145 mEq/L [facility] [...] ORDERABLE S Final Result Performing Organization Address [facility] Phone Number [facility] [address] [place] [address] * GLUCOSE, GLUCOMETER (05/15/2008 13:26 EST) Glucose, Fingerstick 70 70 - 100 mg/dl [facility] Poolroom/Poolhall Manager ID [id number] Test Performed by Nursing Services [facility] 05/15/2008 13:2 6 EST 05/15/2008 23:00 EST Jose Alejandro Castro MD CHEMISTRY & BLOOD GAS ORDERABLE S Final Result Performing Organization Address [facility] Phone Number [facility] [address] [place] [address] * (ABNORMAL) ELECTROLYTES (05/15/2008 10:05 EST) Sodium [...] ORDERABLE S Final Result Performing Organization Address [facility] Phone Number [facility] [address] [place] [address] * GLUCOSE, GLUCOMETER (05/15/2008 10:00 EST) Glucose, Fingerstick 99 70 - 100 mg/dl [facility] Poolroom/Poolhall Manager ID [id number] Test Performed by Nursing Services [facility] 05/15/2008 10:0 0 EST 05/15/2008 23:00 EST us Jose Alejandro Castro MD CHEMISTRY & BLOOD GAS ORDERABLE S Final Result Performing Organization Address [facility] Phone Number [facility] [address] [place] [address] * (ABNORMAL) GLUCOSE, GLUCOMETER (05/15/2008 8:35 EST) Glucose, Fingerstick 113(H) 70 - 100 mg/dl [facility] Poolroom/Poolhall Manager ID [id number] Test Performed by Nursing Services [facility] 05/15/2008 8:35 EST 05/15/2008 23:00 EST us Jose Alejandro Castro MD CHEMISTRY & BLOOD GAS ORDERABLE S Final Result Performing Organization Address [facility] Co de Phone Number [facility] [address] [place] [address] * OSMOLALITY, URINE (05/15/2008 8:09 EST) Osmolality, Ur 298 MOS/KG [facility] 05/15/2008 8:09 EST 05/15/2008 8:09 EST Jose Alejandro Castro MD URINALYSIS ORDERABLES Final Res ult Performing Organization Address [facility] de Phone Number [facility] [address] [place] [address] * SODIUM, URINE RANDOM (05/15/2008 8:09 EST) Sodium, Ur 133.0 mEq/L [facility] 05/15/2008 8:09 EST 05/15/2008 8:09 EST Jose Alejandro Castro MD URINALYSIS ORDERABLES Final Res ult Performing Organization Address [facility] de Phone Number [facility] [address] [place] [address] * POTASSIUM, URINE RANDOM (05/15/2008 8:09 EST) Potassium, Urine 6.4 mEq/L [facility] 05/15/2008 8:09 EST 05/15/2008 8:09 EST us Jose Alejandro Castro MD URINALYSIS ORDERABLES Final Res ult Performing Organization Address [facility] de Phone Number [facility] [address] [place] [address] * CREATININE, URINE RANDOM (05/15/2008 8:09 EST) Creatinine, Urn [place] 12.8 mg/dl [facility] 05/15/2008 8:09 EST 05/15/2008 8:09 EST us Jose Alejandro Castro MD URINALYSIS ORDERABLES Final Res ult Performing Organization Address [facility]/State/ZIP Co de Phone Number [facility] [address] [place] [address] * (ABNORMAL) ALBUMIN (05/15/2008 6:40 EST) Albumin 2.7(L) 3.0 - 5.5 g/dl [facility] 05/15/2008 6:40 EST 05/15/2008 7:00 EST Jose Alejandro Castro MD CHEMISTRY & BLOOD GAS ORDERABLE S Final Result Performing Organization Address [facility] Co de Phone Number [facility] [address] [place] [address] * (ABNORMAL) GLUCOSE, SERUM (05/15/2008 6:40 EST) Glucose, Serum 65(L) 70 - 100 mg/dl [facility] 05/15/2008 6:40 EST 05/15/2008 7:00 EST Jose Alejandro Castro MD CHEMISTRY & BLOOD GAS ORDERABLE S Final Result Performing Organization Address [facility] de Phone Number [facility] [address] [place] [address] * (ABNORMAL) PHOSPHORUS (05/15/2008 6:40 EST) Phosphorus 2.4(L) 2.7 - 4.7 mg/dl [facility] 05/15/2008 6:40 EST 05/15/2008 7:00 EST Jose Alejandro Castro MD CHEMISTRY & BLOOD GAS ORDERABLE S Final Result Performing Organization Address [facility] Co de Phone Number [facility] [address] [place] [address] * (ABNORMAL) MAGNESIUM (05/15/2008 6:40 EST) Magnesium 1.5(L) 1.7 - 2.8 mg/dl [facility] 05/15/2008 6:40 EST 05/15/2008 7:00 EST Jose Alejandro Castro MD CHEMISTRY & BLOOD GAS ORDERABLE S Final Result Performing Organization Address [facility] de Phone Number [facility] [address] [place] [address] * (ABNORMAL) CALCIUM (05/15/2008 6:40 EST) Calcium 7.5(L) 8.5 - 10.5 mg/dl [facility] Calculated Calcium 9.2 8.5 - 10.5 mg/dl [facility] 05/15/2008 6:40 EST 05/15/2008 7:00 EST Jose Alejandro Castro MD CHEMISTRY & BLOOD GAS ORDERABLE S Final Result Performing Organization Address [facility] de Phone Number [facility] [address] [place] [address] * (ABNORMAL) ELECTROLYTES (05/15/2008 6:40 EST) Sodium [...] ORDERABLE S Final Result Performing Organization Address [facility] Co de Phone Number [facility] [address] [place] [address] * GLUCOSE, SERUM (05/15/2008 3:55 EST) Glucose, Serum 89 70 - 100 mg/dl [facility] 05/15/2008 3:55 EST 05/15/2008 4:03 EST Jose Alejandro Castro MD CHEMISTRY & BLOOD GAS ORDERABLE S Final Result Performing Organization Address [facility]/ZIP Co de Phone Number [facility] [address] [place] [address] * (ABNORMAL) CREATININE (05/15/2008 3:55 EST) Creatinine 0.50(L) 0.6 - 1.2 mg/dl [facility] GFR, Calculated Age <18 ml/min/1.7 3m2 [facility] 05/15/2008 3:55 EST 05/15/2008 4:03 EST Jose Alejandro Castro MD CHEMISTRY & BLOOD GAS ORDERABLE S Final Result Performing Organization Address [facility] Co de Phone Number [facility] [address] [place] [address] * (ABNORMAL) BUN (05/15/2008 3:55 EST) BUN 6(L) 8 - 21 mg/dl [facility] 05/15/2008 3:55 EST 05/15/2008 4:03 EST Jose Alejandro Castro MD CHEMISTRY & BLOOD GAS ORDERABLE S Final Result Performing Organization Address [facility] de Phone Number [facility] [address] [place] [address] * (ABNORMAL) ELECTROLYTES (05/15/2008 3:55 EST) Sodium [...] ORDERABLE S Final Result Performing Organization Address [facility] Co de Phone Number [facility] [address] [place] [address] * OSMOLALITY, URINE (05/15/2008 2:10 EST) Pathologist [facility] Osmolality, Ur 372 MOS/KG [facility] 05/15/2008 2:10 EST 05/15/2008 2:15 EST Jose Alejandro Castro MD URINALYSIS ORDERABLES Final Res ult Performing Organization Address [facility] de Phone Number [facility] [address] [place] [address] * SODIUM, URINE RANDOM (05/15/2008 2:10 EST) Pathologist [facility] Sodium, Ur 167.0 mEq/L [facility] 05/15/2008 2:10 EST 05/15/2008 2:15 EST Jose Alejandro Castro MD URINALYSIS ORDERABLES Final Res ult Performing Organization Address [facility] de Phone Number [facility] [address] [place] [address] * GLUCOSE, SERUM (05/15/2008 0:45 EST) [facility] Glucose, Serum 97 70 - 100 mg/dl [facility] 05/15/2008 0:45 EST 05/15/2008 0:50 EST Jose Alejandro Castro MD CHEMISTRY & BLOOD GAS ORDERABLE S Final Result Performing Organization Address [facility] de Phone Number [facility] [address] [place] [address] * (ABNORMAL) PHOSPHORUS (05/15/2008 0:45 EST) Pathologist [facility] Phosphorus 2.5(L) 2.7 - 4.7 mg/dl [facility] 05/15/2008 0:45 EST 05/15/2008 0:50 EST Jose Alejandro Castro MD CHEMISTRY & BLOOD GAS ORDERABLE S Final Result Performing Organization Address [facility] de Phone Number [facility] [address] [place] [address] * (ABNORMAL) MAGNESIUM (05/15/2008 0:45 EST) Magnesium 1.5(L) 1.7 - 2.8 mg/dl [facility] 05/15/2008 0:45 EST 05/15/2008 0:50 EST Jose Alejandro Castro MD CHEMISTRY & BLOOD GAS ORDERABLE S Final Result Performing Organization Address [facility] de Phone Number [facility] [address] [place] [address] * (ABNORMAL) CALCIUM (05/15/2008 0:45 EST) Calcium 7.1(L) 8.5 - 10.5 mg/dl [facility] Calculated Calcium 8.9 8.5 - 10.5 mg/dl [facility] 05/15/2008 0:45 EST 05/15/2008 0:50 EST Jose Alejandro Castro MD CHEMISTRY & BLOOD GAS ORDERABLE S Final Result Performing Organization Address [facility] de Phone Number [facility] [address] [place] [address] * (ABNORMAL) ELECTROLYTES (05/15/2008 0:45 EST) Sodium [...] S Final Result [facility] [address] [place] [address] * GLUCOSE, SERUM (05/14/2008 22:10 EST) Glucose, Serum 88 70 - 100 mg/dl [facility] 05/14/2008 22:1 0 EST 05/14/2008 22:15 EST Jose Alejandro Castro MD CHEMISTRY & BLOOD GAS ORDERABLE S Final Result Performing Organization Address [facility] de Phone Number [facility] [address] [place] [address] * (ABNORMAL) ELECTROLYTES (05/14/2008 22:10 EST) Sodium [...] ORDERABLE S Final Result Performing Organization Address [facility] de Phone Number [facility] [address] [place] [address] * GLUCOSE, SERUM (05/14/2008 18:50 EST) Glucose, Serum 99 70 - 100 mg/dl [facility] 05/14/2008 18:5 0 EST 05/14/2008 18:59 EST Jose Alejandro Castro MD CHEMISTRY & BLOOD GAS ORDERABLE S Final Result Performing Organization Address [facility] Co de Phone Number [facility] [address] [place] [address] * (ABNORMAL) ELECTROLYTES (05/14/2008 18:50 EST) Sodium [...] ORDERABLE S Final Result Performing Organization Address [facility] Co de Phone Number [facility] [address] [place] [address] * (ABNORMAL) PHOSPHORUS (05/14/2008 16:26 EST) Phosphorus 1.7(L) 2.7 - 4.7 mg/dl [facility] 05/14/2008 16:2 6 EST 05/14/2008 16:26 EST Jose Alejandro Castro MD CHEMISTRY & BLOOD GAS ORDERABLE S Final Result Performing Organization Address [facility] de Phone Number [facility] [address] [place] [address] * (ABNORMAL) CALCIUM (05/14/2008 16:26 EST) Calcium 6.8(L) 8.5 - 10.5 mg/dl [facility] Calculated Calcium 8.6 8.5 - 10.5 mg/dl [facility] 05/14/2008 16:2 6 EST 05/14/2008 16:26 EST Jose Alejandro Castro MD CHEMISTRY & BLOOD GAS ORDERABLE S Final Result Performing Organization Address [facility] de Phone Number [facility] [address] [place] [address] * (ABNORMAL) GLUCOSE, SERUM (05/14/2008 16:26 EST) Glucose, Serum 107(H) 70 - 100 mg/dl [facility] 05/14/2008 16:2 6 EST 05/14/2008 16:26 EST Jose Alejandro Castro MD CHEMISTRY & BLOOD GAS ORDERABLE S Final Result Performing Organization Address [facility] Co de Phone Number [facility] [address] [place] [address] * (ABNORMAL) ELECTROLYTES (05/14/2008 16:26 EST) Sodium [...] Final Result Performing Organization Address [facility] Co de Phone Number [facility] [address] [place] [address] * C. DIFFICILE TOXIN (05/14/2008 13:55 EST) Specimen Description Feces [facility] Result No C.difficil e toxin A or toxin B detected. [facility] Report Status Final 05/14/2008 [facility] 05/14/2008 13:5 5 EST 05/14/2008 16:05 EST Jose Alejandro Castro MD MICROBIOLOGY - GENERAL ORDERABL ES Final Result Performing Organization Address [facility] Co de Phone Number [facility] [address] [place] [address] * GLUCOSE, SERUM (05/14/2008 10:21 EST) Glucose, Serum 74 70 - 100 mg/dl [facility] Comment:Heparinized plasma. 05/14/2008 10:2 1 EST 05/14/2008 10:21 EST Jose Alejandro Castro MD CHEMISTRY & BLOOD GAS ORDERABLE S Final Result Performing Organization Address [facility] de Phone Number [facility] [address] [place] [address] * (ABNORMAL) ELECTROLYTES (05/14/2008 10:21 EST) Sodium [...] ORDERABLE S Final Result Performing Organization Address [facility] de Phone Number [facility] [address] [place] [address] * (ABNORMAL) CALCIUM, IONIZED (05/14/2008 5:38 EST) Calcium, Ionized 1.00(L) 1.12 - 1.32 mmol/L [facility] [place] [id number] Test performed by Chemistry [facility] 05/14/2008 5:38 EST 05/14/2008 5:49 EST Jose Alejandro Castro MD CHEMISTRY & BLOOD GAS ORDERABLE S Final Result Performing Organization Address [facility] de Phone Number [facility] [address] [place] [address] * CALCIUM IONIZED (05/14/2008 5:27 EST) Ionized Calcium Note Sample sent to Lab. [facility] 05/14/2008 5:27 EST 05/14/2008 5:27 EST Jose Alejandro Castro MD CHEMISTRY & BLOOD GAS ORDERABLE S Final Result Performing Organization Address [facility] Co de Phone Number [facility] [address] [place] [address] * (ABNORMAL) PHOSPHORUS (05/14/2008 4:07 EST) Phosphorus 2.0(L) 2.7 - 4.7 mg/dl [facility] 05/14/2008 4:07 EST 05/14/2008 4:07 EST Jose Alejandro Castro MD CHEMISTRY & BLOOD GAS ORDERABLE S Final Result Performing Organization Address [facility] de Phone Number [facility] [address] [place] [address] * (ABNORMAL) MAGNESIUM (05/14/2008 4:07 EST) Magnesium 1.5(L) 1.7 - 2.8 mg/dl [facility] 05/14/2008 4:07 EST 05/14/2008 4:07 EST Jose Alejandro Castro MD CHEMISTRY & BLOOD GAS ORDERABLE S Final Result Performing Organization Address [facility] de Phone Number [facility] [address] [place] [address] * (ABNORMAL) CALCIUM (05/14/2008 4:07 EST) Calcium 6.6(L) 8.5 - 10.5 mg/dl [facility] Calculated Calcium 8.7 8.5 - 10.5 mg/dl [facility] 05/14/2008 4:07 EST 05/14/2008 4:07 EST us Jose Alejandro Castro MD CHEMISTRY & BLOOD GAS ORDERABLE S Final Result Performing Organization Address [facility] Co de Phone Number [facility] [address] [place] [address] * (ABNORMAL) ELECTROLYTES (05/14/2008 4:07 EST) Sodium [...] ORDERABLE S Final Result Performing Organization Address [facility] Co de Phone Number [facility] [address] [place] [address] * (ABNORMAL) CREATININE (05/14/2008 4:07 EST) Creatinine 0.50(L) 0.6 - 1.2 mg/dl [facility] GFR, Calculated Age <18 ml/min/1.7 3m2 [facility] 05/14/2008 4:07 EST 05/14/2008 4:07 EST Jose Alejandro Castro MD CHEMISTRY & BLOOD GAS ORDERABLE S Final Result Performing Organization Address [facility] de Phone Number [facility] [address] [place] [address] * (ABNORMAL) BUN (05/14/2008 4:07 EST) BUN 7(L) 8 - 21 mg/dl [facility] 05/14/2008 4:07 EST 05/14/2008 4:07 EST Jose Alejandro Castro MD CHEMISTRY & BLOOD GAS ORDERABLE S Final Result Performing Organization Address [facility] de Phone Number [facility] [address] [place] [address] * (ABNORMAL) HEMAGRAM (05/14/2008 4:07 EST) WBC [...] Fin al Result [facility] [address] [place] [address] * GLUCOSE, GLUCOMETER (05/14/2008 4:04 EST) Glucose, Fingerstick 97 70 - 100 mg/dl [facility] Poolroom/Poolhall Manager [place] [id number] Test Performed by Nursing Services [facility] 05/14/2008 4:04 EST 05/14/2008 23:15 EST Result [facility] Jose Alejandro Castro MD CHEMISTRY & BLOOD GAS ORDERABLE S Final Result Performing Organization Address [facility] Co de Phone Number [facility] [address] [place] [address] * (ABNORMAL) ELECTROLYTES (05/13/2008 22:11 EST) Sodium [...] ORDERABLE S Final Result Performing Organization Address [facility]/ZIP Co de Phone Number [facility] [address] [place] [address] * GLUCOSE, GLUCOMETER (05/13/2008 22:07 EST) Glucose, Fingerstick 93 70 - 100 mg/dl [facility] Poolroom/Poolhall Manager [place] [id number] Test Performed by Nursing Services [facility] 05/13/2008 22:0 7 EST 05/15/2008 8:34 EST Jose Alejandro Castro MD CHEMISTRY & BLOOD GAS ORDERABLE S Final Result Performing Organization Address [facility] de Phone Number [facility] [address] [place] [address] * XRAY FEEDING TUBE PLACEMENT (05/13/2008 21:33 [...] 70 - 100 mg/dl [facility] Poolroom/Poolhall Manager ID [id number] Test Performed by Nursing Services [facility] 05/13/2008 16:5 3 EST 05/15/2008 8:34 EST us Jose Alejandro Castro MD CHEMISTRY & BLOOD GAS ORDERABLE S Final Result Performing Organization Address [facility] Phone Number [facility] [address] [place] [address] * (ABNORMAL) ELECTROLYTES (05/13/2008 16:50 EST) Sodium [...] ORDERABLE S Final Result Performing Organization Address [facility] Phone Number [facility] [address] [place] [address] * SODIUM, URINE RANDOM (05/13/2008 13:00 EST) Sodium, Ur 130.0 mEq/L [facility] 05/13/2008 13:0 0 EST 05/13/2008 13:01 EST us Jose Alejandro Castro MD URINALYSIS ORDERABLES Final Res ult Performing Organization Address [facility] Phone Number [facility] [address] [place] [address] * MR HEAD W/WO CONTRAST (05/13/2008 11:47 [...] S Final Result [facility] [address] [place] [address] * (ABNORMAL) ALBUMIN (05/13/2008 10:00 EST) Albumin 2.2(L) 3.0 - 5.5 g/dl [facility] Comment:Sample retested, res ult confirmed 05/13/2008 10:0 0 EST 05/13/2008 10:23 EST us Jose Alejandro Castro MD CHEMISTRY & BLOOD GAS ORDERABLE S Final Result Performing Organization Address [facility] de Phone Number [facility] [address] [place] [address] * (ABNORMAL) ELECTROLYTES (05/13/2008 10:00 EST) Sodium [...] ORDERABLE S Final Result Performing Organization Address [facility] de Phone Number [facility] [address] [place] [address] * (ABNORMAL) BNP (05/13/2008 10:00 EST) BNP 653(H) <100 pg/ml [facility] 05/13/2008 10:0 0 EST 05/13/2008 10:23 EST Jose Alejandro Castro MD CHEMISTRY & BLOOD GAS ORDERABLE S Final Result Performing Organization Address [facility] de Phone Number [facility] [address] [place] [address] * (ABNORMAL) CALCIUM, IONIZED (05/13/2008 4:18 EST) Calcium, Ionized 1.09(L) 1.12 - 1.32 mmol/L [facility] [place] [id number] Test performed by Chemistry [facility] 05/13/2008 4:18 EST 05/13/2008 4:22 EST Jose Alejandro Castro MD CHEMISTRY & BLOOD GAS ORDERABLE S Final Result [facility] [address] [place] [address] * PORTABLE ABDOMEN 1 VIEW (05/13/2008 4:15 [...] (ABNORMAL) GLUCOSE, SERUM (05/13/2008 4:13 EST) Pathologist [facility] Glucose, Serum 126(H) 70 - 100 mg/dl [facility] 05/13/2008 4:13 EST 05/13/2008 4:13 EST Jose Alejandro Castro MD CHEMISTRY & BLOOD GAS ORDERABLE S Final Result [facility] [address] [place] [address] * PHOSPHORUS (05/13/2008 4:13 EST) Pathologist [facility] Phosphorus 2.8 2.7 - 4.7 mg/dl [facility] 05/13/2008 4:13 EST 05/13/2008 4:13 EST us Jose Alejandro Castro MD CHEMISTRY & BLOOD GAS ORDERABLE S Final Result [facility] [address] [place] [address] * (ABNORMAL) MAGNESIUM (05/13/2008 4:13 EST) Magnesium 1.5(L) 1.7 - 2.8 mg/dl [facility] 05/13/2008 4:13 EST 05/13/2008 4:13 EST Jose Alejandro Castro MD CHEMISTRY & BLOOD GAS ORDERABLE S Final Result Performing Organization Address [facility] Co de Phone Number [facility] [address] [place] [address] * CREATININE (05/13/2008 4:13 EST) Creatinine 0.70 0.6 - 1.2 mg/dl [facility] GFR, Calculated Age <18 ml/min/1.7 3m2 [facility] 05/13/2008 4:13 EST 05/13/2008 4:13 EST Jose Alejandro Castro MD CHEMISTRY & BLOOD GAS ORDERABLE S Final Result Performing Organization Address [facility] Co de Phone Number [facility] [address] [place] [address] * BUN (05/13/2008 4:13 EST) BUN 12 8 - 21 mg/dl [facility] 05/13/2008 4:13 EST 05/13/2008 4:13 EST us Jose Alejandro Castro MD CHEMISTRY & BLOOD GAS ORDERABLE S Final Result Performing Organization Address [facility]/ZIP Co de Phone Number [facility] [address] [place] [address] * (ABNORMAL) ELECTROLYTES (05/13/2008 4:13 EST) Sodium 144 136 - 145 mEq/L [facility] Potassium 3.0(L) 3.5 - 5.0 mEq/L [facility] Chloride 108 96 - 110 mEq/L [facility] CO2 29 24 - 32 mEq/L [facility] 05/13/2008 4:13 EST 05/13/2008 4:13 EST Jose Alejandro Castro MD CHEMISTRY & BLOOD GAS ORDERABLE S Final Result Performing Organization Address [facility]/ZIP Co de Phone Number [facility] [address] [place] [address] * (ABNORMAL) HEMAGRAM AND DIFFERENTIAL (05/13/2008 4:13 [...] ORDERABLES Final Result [facility] [address] [place] [address] * CALCIUM IONIZED (05/13/2008 4:13 EST) Ionized Calcium Note Sample sent to Lab. [facility] 05/13/2008 4:13 EST 05/13/2008 4:13 EST Jose Alejandro Castro MD CHEMISTRY & BLOOD GAS ORDERABLE S Final Result Performing Organization Address [facility] Co de Phone Number [facility] [address] [place] [address] * (ABNORMAL) GLUCOSE, GLUCOMETER (05/13/2008 4:08 EST) Glucose, Fingerstick 141(H) 70 - 100 mg/dl [facility] Poolroom/Poolhall Manager [place] [id number] Test Performed by Nursing Services [facility] 05/13/2008 4:08 EST 05/15/2008 8:33 EST Jose Alejandro Castro MD CHEMISTRY & BLOOD GAS ORDERABLE S Final Result Performing Organization Address [facility] de Phone Number [facility] [address] [place] [address] * UA WITH MICROSCOPIC (05/13/2008 2:03 EST) Color, UA Straw [facility] Clarity, UA Clear [facility] Glucose, UA Norm NORM [facility] Bilirubin, UA Neg NEG TRUE [facility] Ketones, UA Neg NEG [facility] Specific [place], Urine 1.015 1.005 - 1.02 [facility] [...] ORDERABLES Final Res ult Performing Organization Address [facility] de Phone Number [facility] [address] [place] [address] * (ABNORMAL) ELECTROLYTES (05/12/2008 21:57 EST) Sodium [...] ORDERABLE S Final Result Performing Organization Address [facility] de Phone Number [facility] [address] [place] [address] * (ABNORMAL) GLUCOSE, GLUCOMETER (05/12/2008 21:49 EST) Glucose, Fingerstick 126(H) 70 - 100 mg/dl [facility] Poolroom/Poolhall Manager ID [id number] Test Performed by Nursing Services [facility] 05/12/2008 21:4 9 EST 05/12/2008 23:19 EST us Jose Alejandro Castro MD CHEMISTRY & BLOOD GAS ORDERABLE S Final Result Performing Organization Address [facility] de Phone Number [facility] [address] [place] [address] * (ABNORMAL) GLUCOSE, GLUCOMETER (05/12/2008 16:06 EST) Glucose, Fingerstick 119(H) 70 - 100 mg/dl [facility] Poolroom/Poolhall Manager ID [id number] Test Performed by Nursing Services [facility] 05/12/2008 16:0 6 EST 05/12/2008 23:19 EST Jose Alejandro Castro MD CHEMISTRY & BLOOD GAS ORDERABLE S Final Result Performing Organization Address [facility] de Phone Number [facility] [address] [place] [address] * (ABNORMAL) ELECTROLYTES (05/12/2008 16:05 EST) Sodium [...] ORDERABLE S Final Result Performing Organization Address [facility] de Phone Number [facility] [address] [place] [address] * (ABNORMAL) GLUCOSE, GLUCOMETER (05/12/2008 9:21 EST) Glucose, Fingerstick 133(H) 70 - 100 mg/dl [facility] Poolroom/Poolhall Manager ID [id number] Test Performed by Nursing Services [facility] 05/12/2008 9:21 EST 05/12/2008 23:18 EST Jose Alejandro Castor MD CHEMISTRY & BLOOD GAS ORDERABLE S Final Result Performing Organization Address [facility] de Phone Number [facility] [address] [place] [address] * (ABNORMAL) ELECTROLYTES (05/12/2008 9:20 EST) Sodium 147(H) 136 - 145 mEq/L [facility] Potassium 3.2(L) 3.5 - 5.0 mEq/L [facility] Chloride 113(H) 96 - 110 mEq/L [facility] CO2 28 24 - 32 mEq/L [facility] 05/12/2008 9:20 EST 05/12/2008 9:30 EST Jose Alejandro Castro MD CHEMISTRY & BLOOD GAS ORDERABLE S Final Result Performing Organization Address [facility] de Phone Number [facility] [address] [place] [address] * CREATININE (05/12/2008 4:10 EST) Creatinine 0.70 0.6 - 1.2 mg/dl [facility] GFR, Calculated Age <18 ml/min/1.7 3m2 [facility] 05/12/2008 4:10 EST 05/12/2008 5:17 EST Jose Alejandro Castro MD CHEMISTRY & BLOOD GAS ORDERABLE S Final Result Performing Organization Address [facility] de Phone Number [facility] [address] [place] [address] * BUN (05/12/2008 4:10 EST) BUN 14 8 - 21 mg/dl [facility] 05/12/2008 4:10 EST 05/12/2008 5:17 EST us Jose Alejandro Castro MD CHEMISTRY & BLOOD GAS ORDERABLE S Final Result Performing Organization Address [facility] Co de Phone Number [facility] [address] [place] [address] * (ABNORMAL) ELECTROLYTES (05/12/2008 4:10 EST) Sodium [...] S Final Result [facility] [address] [place] [address] * (ABNORMAL) HEMAGRAM AND DIFFERENTIAL (05/12/2008 4:10 [...] PROBE ORDERABLES Final Result Performing Organization Address [facility] de Phone Number [facility] [address] [place] [address] * GLUCOSE, GLUCOMETER (05/11/2008 20:32 EST) Glucose, Fingerstick 87 70 - 100 mg/dl [facility] Poolroom/Poolhall Manager [place] [id number] Test Performed by Nursing Services [facility] 05/11/2008 20:3 2 EST 05/11/2008 23:32 EST Jose Alejandro Castro MD CHEMISTRY & BLOOD GAS ORDERABLE S Final Result Performing Organization Address [facility] Phone Number [facility] [address] [place] [address] * (ABNORMAL) ELECTROLYTES (05/11/2008 20:30 EST) Sodium [...] ORDERABLE S Final Result Performing Organization Address [facility] Phone Number [facility] [address] [place] [address] * MRSA MOLECULAR DETECTION (05/11/2008 18:42 EST) Specimen Description Nares [facility] Result NEGATIVE for Methicillin Resistant Staphylococcus aureus DNA by PCR. [facility] Report Status Final 05/12/2008 [facility] 05/11/2008 18:4 2 EST 05/11/2008 18:42 EST Jose Alejandro Castro MD MICROBIOLOGY - GENERAL ORDERABL ES Final Result Performing Organization Address [facility] de Phone Number [facility] [address] [place] [address] * (ABNORMAL) GLUCOSE, SERUM (05/11/2008 15:17 EST) Glucose, Serum 174(H) 70 - 100 mg/dl [facility] 05/11/2008 15:1 7 EST 05/11/2008 15:17 EST Jose Alejandro Castro MD CHEMISTRY & BLOOD GAS ORDERABLE S Final Result Performing Organization Address [facility] de Phone Number [facility] [address] [place] [address] * ELECTROLYTES (05/11/2008 15:17 EST) Pathologist [facility] Sodium 139 136 - 145 mEq/L [facility] Potassium 4.1 3.5 - 5.0 mEq/L [facility] Chloride 107 96 - 110 mEq/L [facility] CO2 26 24 - 32 mEq/L [facility] 05/11/2008 15:1 7 EST 05/11/2008 15:17 EST Jose Alejandro Castro MD CHEMISTRY & BLOOD GAS ORDERABLE S Final Result Performing Organization Address [facility] Phone Number [facility] [address] [place] [address] * XRAY FEEDING TUBE PLACEMENT (05/11/2008 11:27 [...] S Final Result [facility] [address] [place] [address] * ELECTROLYTES (05/11/2008 8:18 EST) Sodium 140 [...] ORDERABLE S Final Result Performing Organization Address [facility]/ZIP Co de Phone Number [facility] [address] [place] [address] * CALCIUM, IONIZED (05/11/2008 4:07 EST) Calcium, Ionized 1.19 1.12 - 1.32 mmol/L [facility] [place] [id number] Test performed by Chemistry [facility] 05/11/2008 4:07 EST 05/11/2008 4:14 EST Jose Alejandro Castro MD CHEMISTRY & BLOOD GAS ORDERABLE S Final Result Performing Organization Address [facility] Co de Phone Number [facility] [address] [place] [address] * (ABNORMAL) GLUCOSE, SERUM (05/11/2008 3:55 EST) Glucose, Serum 126(H) 70 - 100 mg/dl [facility] 05/11/2008 3:55 EST 05/11/2008 4:01 EST Jose Alejandro Castro MD CHEMISTRY & BLOOD GAS ORDERABLE S Final Result Performing Organization Address [facility] Co de Phone Number [facility] [address] [place] [address] * PHOSPHORUS (05/11/2008 3:55 EST) Phosphorus 2.9 2.7 - 4.7 mg/dl [facility] 05/11/2008 3:55 EST 05/11/2008 4:01 EST us Jose Alejandro Castro MD CHEMISTRY & BLOOD GAS ORDERABLE S Final Result Performing Organization Address [facility] Co de Phone Number [facility] [address] [place] [address] * MAGNESIUM (05/11/2008 3:55 EST) Magnesium 1.7 1.7 - 2.8 mg/dl [facility] 05/11/2008 3:55 EST 05/11/2008 4:01 EST Jose Alejandro Castro MD CHEMISTRY & BLOOD GAS ORDERABLE S Final Result Performing Organization Address [facility]/ZIP Co de Phone Number [facility] [address] [place] [address] * CREATININE (05/11/2008 3:55 EST) Creatinine 0.60 0.6 - 1.2 mg/dl [facility] GFR, Calculated Age <18 ml/min/1.7 3m2 [facility] 05/11/2008 3:55 EST 05/11/2008 4:01 EST Jose Alejandro Castro MD CHEMISTRY & BLOOD GAS ORDERABLE S Final Result Performing Organization Address [facility] Co de Phone Number [facility] [address] [place] [address] * BUN (05/11/2008 3:55 EST) BUN 17 8 - 21 mg/dl [facility] 05/11/2008 3:55 EST 05/11/2008 4:01 EST Jose Alejandro Castro MD CHEMISTRY & BLOOD GAS ORDERABLE S Final Result Performing Organization Address [facility]/ZIP Co de Phone Number [facility] [address] [place] [address] * ELECTROLYTES (05/11/2008 3:55 EST) Sodium 139 136 - 145 mEq/L [facility] Potassium 4.0 3.5 - 5.0 mEq/L [facility] Chloride 107 96 - 110 mEq/L [facility] CO2 25 24 - 32 mEq/L [facility] 05/11/2008 3:55 EST 05/11/2008 4:01 EST us Jose Alejandro Castro MD CHEMISTRY & BLOOD GAS ORDERABLE S Final Result Performing Organization Address [facility]/ZIP Co de Phone Number [facility] [address] [place] [address] * (ABNORMAL) HEMAGRAM AND DIFFERENTIAL (05/11/2008 3:55 [...] PROBE ORDERABLES Final Result Performing Organization Address [facility]/ZIP Co de Phone Number [facility] [address] [place] [address] * CALCIUM IONIZED (05/11/2008 3:55 EST) Ionized Calcium Note Sample sent to Lab. [facility] 05/11/2008 3:55 EST 05/11/2008 4:01 EST Jose Alejandro Castro MD CHEMISTRY & BLOOD GAS ORDERABLE S Final Result Performing Organization Address [facility] de Phone Number [facility] [address] [place] [address] * CALCIUM, IONIZED (05/11/2008 0:56 EST) Calcium, Ionized 1.21 1.12 - 1.32 mmol/L [facility] marking stitcher [place] [id number] Test performed by Chemistry [facility] 05/11/2008 0:56 EST 05/11/2008 0:59 EST Jose Alejandro Castro MD CHEMISTRY & BLOOD GAS ORDERABLE S Final Result Performing Organization Address [facility] Phone Number [facility] [address] [place] [address] * (ABNORMAL) GLUCOSE, SERUM (05/11/2008 0:20 EST) Glucose, Serum 131(H) 70 - 100 mg/dl [facility] 05/11/2008 0:20 EST 05/11/2008 0:36 EST Jose Alejandro Castro MD CHEMISTRY & BLOOD GAS ORDERABLE S Final Result Performing Organization Address [facility] de Phone Number [facility] [address] [place] [address] * PHOSPHORUS (05/11/2008 0:20 EST) Phosphorus 2.9 2.7 - 4.7 mg/dl [facility] 05/11/2008 0:20 EST 05/11/2008 0:36 EST us Jose Alejandro Castro MD CHEMISTRY & BLOOD GAS ORDERABLE S Final Result Performing Organization Address City/[facility] de Phone Number [facility] [address] [place] [address] * MAGNESIUM (05/11/2008 0:20 EST) Magnesium 1.7 1.7 - 2.8 mg/dl [facility] 05/11/2008 0:20 EST 05/11/2008 0:36 EST Jose Alejandro Castro MD CHEMISTRY & BLOOD GAS ORDERABLE S Final Result Performing Organization Address [facility] de Phone Number [facility] [address] [place] [address] * ELECTROLYTES (05/11/2008 0:20 EST) Sodium 139 136 - 145 mEq/L [facility] Potassium 4.2 3.5 - 5.0 mEq/L [facility] Chloride 105 96 - 110 mEq/L [facility] CO2 28 24 - 32 mEq/L [facility] 05/11/2008 0:20 EST 05/11/2008 0:36 EST Jose Alejandro Castro MD CHEMISTRY & BLOOD GAS ORDERABLE S Final Result Performing Organization Address [facility] Phone Number [facility] [address] [place] [address] * CALCIUM IONIZED (05/11/2008 0:20 EST) Ionized Calcium Note Sample sent to Lab. [facility] 05/11/2008 0:20 EST 05/11/2008 0:36 EST Jose Alejandro Castro MD CHEMISTRY & BLOOD GAS ORDERABLE S Final Result Performing Organization Address [facility] de Phone Number [facility] [address] [place] [address] * CALCIUM, IONIZED (05/10/2008 20:18 EST) Calcium, Ionized 1.19 1.12 - 1.32 mmol/L [place] [id number] Test performed by Chemistry [facility] 05/10/2008 20:1 8 EST 05/10/2008 20:20 EST us Jose Alejandro Castro MD CHEMISTRY & BLOOD GAS ORDERABLE S Final Result [facility] [address] [place] [address] * (ABNORMAL) GLUCOSE, SERUM (05/10/2008 19:55 EST) Glucose, Serum 126(H) 70 - 100 mg/dl [facility] 05/10/2008 19:5 5 EST 05/10/2008 20:02 EST us Jose Alejandro Castro MD CHEMISTRY & BLOOD GAS ORDERABLE S Final Result Performing Organization Address [facility] Co de Phone Number [facility] [address] [place] [address] * PHOSPHORUS (05/10/2008 19:55 EST) Phosphorus 2.7 2.7 - 4.7 mg/dl [facility] 05/10/2008 19:5 5 EST 05/10/2008 20:02 EST us Jose Alejandro Castro MD CHEMISTRY & BLOOD GAS ORDERABLE S Final Result Performing Organization Address [facility] Co de Phone Number [facility] [address] [place] [address] * MAGNESIUM (05/10/2008 19:55 EST) Magnesium 1.7 1.7 - 2.8 mg/dl [facility] 05/10/2008 19:5 5 EST 05/10/2008 20:02 EST us Jose Alejandro Castro MD CHEMISTRY & BLOOD GAS ORDERABLE S Final Result Performing Organization Address City/[facility]/ZIP Co de Phone Number [facility] [address] [place] [address] * ELECTROLYTES (05/10/2008 19:55 EST) Sodium 136 [...] S Final Result [facility] [address] [place] [address] * (ABNORMAL) HEMAGRAM AND DIFFERENTIAL (05/10/2008 19:55 [...] DNA PROBE ORDERABLES Final Result [facility] [address] [place] [address] * CALCIUM IONIZED (05/10/2008 19:55 EST) Ionized Calcium Note Sample sent to Lab. [facility] 05/10/2008 19:5 5 EST 05/10/2008 20:02 EST Jose Alejandro Castro MD CHEMISTRY & BLOOD GAS ORDERABLE S Final Result Performing Organization Address City/[facility]/ZIP Co de Phone Number [facility] [address] [place] [address] * CALCIUM, IONIZED (05/10/2008 16:34 EST) Calcium, Ionized 1.19 1.12 - 1.32 mmol/L [place] [id number] Test performed by Chemistry [facility] 05/10/2008 16:3 4 EST 05/10/2008 16:37 EST Jose Alejandro Castro MD CHEMISTRY & BLOOD GAS ORDERABLE S Final Result Performing Organization Address [facility] Co de Phone Number [facility] [address] [place] [address] * (ABNORMAL) GLUCOSE, SERUM (05/10/2008 16:23 EST) Glucose, Serum 109(H) 70 - 100 mg/dl [facility] 05/10/2008 16:2 3 EST 05/10/2008 16:23 EST Jose Alejandro Castro MD CHEMISTRY & BLOOD GAS ORDERABLE S Final Result Performing Organization Address City/[facility] Co de Phone Number [facility] [address] [place] [address] * PHOSPHORUS (05/10/2008 16:23 EST) Phosphorus 3.1 2.7 - 4.7 mg/dl [facility] 05/10/2008 16:2 3 EST 05/10/2008 16:23 EST us Jose Alejandro Castro MD CHEMISTRY & BLOOD GAS ORDERABLE S Final Result Performing Organization Address [facility] de Phone Number [facility] [address] [place] [address] * MAGNESIUM (05/10/2008 16:23 EST) Magnesium 1.7 1.7 - 2.8 mg/dl [facility] 05/10/2008 16:2 3 EST 05/10/2008 16:23 EST us Jose Alejandro Castro MD CHEMISTRY & BLOOD GAS ORDERABLE S Final Result Performing Organization Address [facility] de Phone Number [facility] [address] [place] [address] * (ABNORMAL) ELECTROLYTES (05/10/2008 16:23 EST) Sodium [...] ORDERABLE S Final Result Performing Organization Address [facility] de Phone Number [facility] [address] [place] [address] * CALCIUM IONIZED (05/10/2008 16:23 EST) Ionized Calcium Note Sample sent to Lab. [facility] 05/10/2008 16:2 3 EST 05/10/2008 16:23 EST us Jose Alejandro Castro MD CHEMISTRY & BLOOD GAS ORDERABLE S Final Result Performing Organization Address [facility] Co de Phone Number [facility] [address] [place] [address] * (ABNORMAL) GLUCOSE, GLUCOMETER (05/10/2008 16:16 EST) Glucose, Fingerstick 126(H) 70 - 100 mg/dl [facility] Poolroom/Poolhall Manager ID [id number] Test Performed by Nursing Services [facility] 05/10/2008 16:1 6 EST 05/10/2008 23:15 EST us Jose Alejandro Castro MD CHEMISTRY & BLOOD GAS ORDERABLE S Final Result Performing Organization Address [facility] de Phone Number [facility] [address] [place] [address] * (ABNORMAL) BLOOD GAS, G3 ISTAT (05/10/2008 [...] [facility] Sample Type VENOUS [facility]ISHA MCF[facility] marking stitcher ID [id number] Test Performed by Respiratory [facility] 05/10/2008 13:0 8 EST 05/10/2008 13:17 EST us Jose Alejandro Castro MD CHEMISTRY & BLOOD GAS ORDERABLE S Final Result Performing Organization Address [facility] de Phone Number [facility] [address] [place] [address] * SODIUM, URINE RANDOM (05/10/2008 12:27 EST) Sodium, Ur 65.0 mEq/L [facility] 05/10/2008 12:2 7 EST 05/10/2008 12:30 EST Jose Alejandro Castro MD URINALYSIS ORDERABLES Final Res ult Performing Organization Address [facility] Co de Phone Number [facility] [address] [place] [address] * CALCIUM, IONIZED (05/10/2008 12:27 EST) Calcium, Ionized 1.19 1.12 - 1.32 mmol/L [place] [id number] Test performed by Chemistry [facility] 05/10/2008 12:2 7 EST 05/10/2008 12:53 EST us Jose Alejandro Castro MD CHEMISTRY & BLOOD GAS ORDERABLE S Final Result Performing Organization Address [facility] de Phone Number [facility] [address] [place] [address] * (ABNORMAL) GLUCOSE, GLUCOMETER (05/10/2008 12:03 EST) Glucose, Fingerstick 120(H) 70 - 100 mg/dl [facility] Poolroom/Poolhall Manager ID [id number] Test Performed by Nursing Services [facility] 05/10/2008 12:0 3 EST 05/10/2008 23:15 EST Jose Alejandro Castro MD CHEMISTRY & BLOOD GAS ORDERABLE S Final Result Performing Organization Address [facility] Co de Phone Number [facility] [address] [place] [address] * PHOSPHORUS (05/10/2008 11:28 EST) Phosphorus 2.9 2.7 - 4.7 mg/dl [facility] Comment:Heparinized plasma. 05/10/2008 11:2 8 EST 05/10/2008 12:14 EST Jose Alejandro Castro MD CHEMISTRY & BLOOD GAS ORDERABLE S Final Result Performing Organization Address [facility] Co de Phone Number [facility] [address] [place] [address] * MAGNESIUM (05/10/2008 11:28 EST) Pathologist [facility] Magnesium 1.8 1.7 - 2.8 mg/dl [facility] Comment:Heparinized plasma. 05/10/2008 11:2 8 EST 05/10/2008 12:14 EST Jose Alejandro Castro MD CHEMISTRY & BLOOD GAS ORDERABLE S Final Result Performing Organization Address [facility] Phone Number [facility] [address] [place] [address] * GLUCOSE, SERUM (05/10/2008 11:28 EST) Pathologist [facility] Glucose, Serum 97 70 - 100 mg/dl [facility] Comment:Heparinized plasma. 05/10/2008 11:2 8 EST 05/10/2008 12:14 EST Jose Alejandro Castro MD CHEMISTRY & BLOOD GAS ORDERABLE S Final Result Performing Organization Address [facility] Phone Number [facility] [address] [place] [address] * (ABNORMAL) ELECTROLYTES (05/10/2008 11:28 EST) [facility] Sodium 134(L) 136 - 145 mEq/L [...] ORDERABLE S Final Result Performing Organization Address [facility] Phone Number [facility] [address] [place] [address] * CALCIUM IONIZED (05/10/2008 11:28 EST) [facility] Ionized Calcium Note Sample sent to Lab. [facility] 05/10/2008 11:2 8 EST 05/10/2008 12:14 EST us Jose Alejandro Castro MD CHEMISTRY & BLOOD GAS ORDERABLE S Final Result Performing Organization Address [facility] de Phone Number [facility] [address] [place] [address] * GLUCOSE, GLUCOMETER (05/10/2008 9:44 EST) Glucose, Fingerstick 95 70 - 100 mg/dl [facility] Poolroom/Poolhall Manager ID [id number] Test Performed by Nursing Services [facility] 05/10/2008 9:44 EST 05/10/2008 23:15 EST us Jose Alejandro Castro MD CHEMISTRY & BLOOD GAS ORDERABLE S Final Result Performing Organization Address [facility] de Phone Number [facility] [address] [place] [address] * CALCIUM, IONIZED (05/10/2008 8:33 EST) Calcium, Ionized 1.20 1.12 - 1.32 mmol/L [place] [id number] Test performed by Chemistry [facility] 05/10/2008 8:33 EST 05/10/2008 8:36 EST us Jose Alejandro Castro MD CHEMISTRY & BLOOD GAS ORDERABLE S Final Result Performing Organization Address [facility] de Phone Number [facility] [address] [place] [address] * (ABNORMAL) BLOOD GAS, CG4 ISTAT (05/10/2008 [...] [facility] Sample Type ARTERIAL ANISHA [facility] marking stitcher ID [id number] Test Performed by Respiratory [facility] 05/10/2008 8:29 EST 05/10/2008 8:33 EST us Jose Alejandro Castro MD CHEMISTRY & BLOOD GAS ORDERABLE S Final Result Performing Organization Address [facility] Co de Phone Number [facility] [address] [place] [address] * TESTS ADDED BY PHONE (05/10/2008 8:28 EST) Tests to be added STAT [facility] Who Called JOSELUIS FOR DR TONIE [facility] Location Code M3 [facility] 05/10/2008 8:28 EST 05/10/2008 8:28 EST us Jose Alejandro Castro MD CHEMISTRY & BLOOD GAS ORDERABLE S Final Result Performing Organization Address [facility] de Phone Number [facility] [address] [place] [address] * (ABNORMAL) ELECTROLYTES (05/10/2008 8:28 EST) Sodium [...] ORDERABLE S Final Result Performing Organization Address [facility] de Phone Number [facility] [address] [place] [address] * CALCIUM IONIZED (05/10/2008 8:28 EST) Ionized Calcium Note Sample sent to Lab. [facility] 05/10/2008 8:28 EST 05/10/2008 8:28 EST us Jose Alejandro Castro MD CHEMISTRY & BLOOD GAS ORDERABLE S Final Result Performing Organization Address [facility] Co de Phone Number [facility] [address] [place] [address] * PHOSPHORUS (05/10/2008 8:28 EST) Phosphorus 3.1 2.7 - 4.7 mg/dl [facility] 05/10/2008 8:28 EST 05/10/2008 8:28 EST us Jose Alejandro Castro MD CHEMISTRY & BLOOD GAS ORDERABLE S Final Result Performing Organization Address [facility] Phone Number [facility] [address] [place] [address] * MAGNESIUM (05/10/2008 8:28 EST) Magnesium 1.8 1.7 - 2.8 mg/dl [facility] 05/10/2008 8:28 EST 05/10/2008 8:28 EST us Jose Alejandro Castro MD CHEMISTRY & BLOOD GAS ORDERABLE S Final Result Performing Organization Address [facility] de Phone Number [facility] [address] [place] [address] * (ABNORMAL) GLUCOSE, GLUCOMETER (05/10/2008 8:27 EST) Glucose, Fingerstick 102(H) 70 - 100 mg/dl [facility] Poolroom/Poolhall Manager ID [id number] Test Performed by Nursing Services [facility] 05/10/2008 8:27 EST 05/10/2008 23:15 EST us Jose Alejandro Castro MD CHEMISTRY & BLOOD GAS ORDERABLE S Final Result [facility] [address] [place] [address] * (ABNORMAL) BLOOD GAS, G3 ISTAT (05/10/2008 [...] [facility] Sample Type VENOUS ANISHA [facility] marking stitcher ID [id number] Test Performed by Respiratory [facility] 05/10/2008 8:19 EST 05/10/2008 8:33 EST us Jose Alejandro Castro MD CHEMISTRY & BLOOD GAS ORDERABLE S Final Result Performing Organization Address City/State/[facility] Co de Phone Number [facility] [address] [place] [address] * PORTABLE CHEST 1 VIEW (05/10/2008 7:24 [...] the duodenal bulb. Procedure Note Hamzah Torres, [facility] - 11/21/2008 acute resp failure cardex [...] 70 - 100 mg/dl [facility] Poolroom/Poolhall Manager ID [id number] Test Performed by Nursing Services [facility] 05/10/2008 7:02 EST 05/10/2008 23:15 EST Jose Alejandro Castro MD CHEMISTRY & BLOOD GAS ORDERABLE S Final Result Performing Organization Address City/[facility] Co de Phone Number [facility] [address] [place] [address] * (ABNORMAL) GLUCOSE, GLUCOMETER (05/10/2008 6:11 EST) Glucose, Fingerstick 110(H) 70 - 100 mg/dl [facility] Poolroom/Poolhall Manager ID [id number] Test Performed by Nursing Services [facility] 05/10/2008 6:11 EST 05/10/2008 23:15 EST Jose Alejandro Castro MD CHEMISTRY & BLOOD GAS ORDERABLE S Final Result Performing Organization Address City/[facility] Co de Phone Number [facility] [address] [place] [address] * CALCIUM, IONIZED (05/10/2008 5:24 EST) Calcium, Ionized 1.13 1.12 - 1.32 mmol/L [place] [id number] Test performed by Chemistry [facility] 05/10/2008 5:24 EST 05/10/2008 5:33 EST us Jose Alejandro Castro MD CHEMISTRY & BLOOD GAS ORDERABLE S Final Result [facility] [address] [place] [address] * (ABNORMAL) BLOOD GAS, G3 ISTAT (05/10/2008 [...] [facility] Sample Type VENOUS [facility]IS[facility] marking stitcher ID [id number] Test Performed by Respiratory [facility] 05/10/2008 5:04 EST 05/10/2008 5:38 EST us Jose Alejandro Castro MD CHEMISTRY & BLOOD GAS ORDERABLE S Final Result [facility] [address] [place] [address] * (ABNORMAL) GLUCOSE, GLUCOMETER (05/10/2008 5:02 EST) Glucose, Fingerstick 110(H) 70 - 100 mg/dl [facility] Poolroom/Poolhall Manager ID [id number] Test Performed by Nursing Services [facility] 05/10/2008 5:02 EST 05/10/2008 23:15 EST us Jose Alejandro Castro MD CHEMISTRY & BLOOD GAS ORDERABLE S Final Result [facility] [address] [place] [address] * TROPONIN I (05/10/2008 5:00 EST) Troponin I pre 2011 0.19 ng/ml [facility] Comment: Reference Range: Normal: ??Less than 0.05 Indeterminate: ??0.05-0.80 Positive: ??Greater than 0.80 05/10/2008 5:00 EST 05/10/2008 5:11 EST Jose Alejandro Castro MD CHEMISTRY & BLOOD GAS ORDERABLE S Final Result Performing Organization Address [facility] de Phone Number [facility] [address] [place] [address] * (ABNORMAL) CK MB WITH TOTAL CK (05/10/2008 5:00 EST) CK 3,919 U/L [facility] MB 38.9(H) 0 - 5.0 ng/ml [facility] CK-MB Index 1.0 0 - 2.5 [facility] 05/10/2008 5:00 EST 05/10/2008 5:11 EST Jose Alejandro Castro MD CHEMISTRY & BLOOD GAS ORDERABLE S Final Result Performing Organization Address [facility] de Phone Number [facility] [address] [place] [address] * (ABNORMAL) TOTAL PROTEIN (05/10/2008 5:00 EST) Total Protein 4.2(L) 6.3 - 8.6 g/dl [facility] 05/10/2008 5:00 EST 05/10/2008 5:11 EST Jose Alejandro Castro MD CHEMISTRY & BLOOD GAS ORDERABLE S Final Result Performing Organization Address [facility] de Phone Number [facility] [address] [place] [address] * GLUCOSE, SERUM (05/10/2008 5:00 EST) Glucose, Serum 97 70 - 100 mg/dl [facility] 05/10/2008 5:00 EST 05/10/2008 5:11 EST Jose Alejandro Castro MD CHEMISTRY & BLOOD GAS ORDERABLE S Final Result Performing Organization Address [facility] Co de Phone Number [facility] [address] [place] [address] * PHOSPHORUS (05/10/2008 5:00 EST) Phosphorus 3.3 2.7 - 4.7 mg/dl [facility] 05/10/2008 5:00 EST 05/10/2008 5:11 EST Jose Alejandro Castro MD CHEMISTRY & BLOOD GAS ORDERABLE S Final Result Performing Organization Address [facility] de Phone Number [facility] [address] [place] [address] * MAGNESIUM (05/10/2008 5:00 EST) Magnesium 1.8 1.7 - 2.8 mg/dl [facility] 05/10/2008 5:00 EST 05/10/2008 5:11 EST Jose Alejandro Castro MD CHEMISTRY & BLOOD GAS ORDERABLE S Final Result Performing Organization Address [facility] Phone Number [facility] [address] [place] [address] * GGT (05/10/2008 5:00 EST) GGT 23 10 - 35 U/L [facility] 05/10/2008 5:00 EST 05/10/2008 5:11 EST Jose Alejandro Castro MD CHEMISTRY & BLOOD GAS ORDERABLE S Final Result Performing Organization Address [facility] Co de Phone Number [facility] [address] [place] [address] * CREATININE (05/10/2008 5:00 EST) Creatinine 0.70 0.6 - 1.2 mg/dl [facility] GFR, Calculated Age <18 ml/min/1.7 3m2 [facility] 05/10/2008 5:00 EST 05/10/2008 5:11 EST Jose Alejandro Castro MD CHEMISTRY & BLOOD GAS ORDERABLE S Final Result Performing Organization Address [facility] Co de Phone Number [facility] [address] [place] [address] * BUN (05/10/2008 5:00 EST) BUN 18 8 - 21 mg/dl [facility] 05/10/2008 5:00 EST 05/10/2008 5:11 EST Jose Alejandro Castro MD CHEMISTRY & BLOOD GAS ORDERABLE S Final Result Performing Organization Address [facility] Phone Number [facility] [address] [place] [address] * (ABNORMAL) AST (05/10/2008 5:00 EST) AST 202(H) 15 - 46 U/L [facility] 05/10/2008 5:00 EST 05/10/2008 5:11 EST Jose Alejandro Castro MD CHEMISTRY & BLOOD GAS ORDERABLE S Final Result Performing Organization Address [facility] Phone Number [facility] [address] [place] [address] * (ABNORMAL) ALT (05/10/2008 5:00 EST) ALT 82(H) 0 - 45 U/L [facility] 05/10/2008 5:00 EST 05/10/2008 5:11 EST us Jose Alejandro Castro MD CHEMISTRY & BLOOD GAS ORDERABLE S Final Result Performing Organization Address [facility] Co de Phone Number [facility] [address] [place] [address] * ALKALINE PHOSPHATASE (05/10/2008 5:00 EST) Alkaline Phosphatase 112 65 - 260 U/L [facility] 05/10/2008 5:00 EST 05/10/2008 5:11 EST Jose Alejandro Castro MD CHEMISTRY & BLOOD GAS ORDERABLE S Final Result Performing Organization Address [facility] de Phone Number [facility] [address] [place] [address] * (ABNORMAL) ALBUMIN (05/10/2008 5:00 EST) Pathologist [facility] Albumin 2.1(L) 3.0 - 5.5 g/dl [facility] 05/10/2008 5:00 EST 05/10/2008 5:11 EST Jose Alejandro Castro MD CHEMISTRY & BLOOD GAS ORDERABLE S Final Result Performing Organization Address [facility] Phone Number [facility] [address] [place] [address] * (ABNORMAL) ELECTROLYTES (05/10/2008 5:00 EST) Pathologist [facility] Sodium 134(L) 136 - 145 mEq/L [facility] Potassium 4.7 3.5 - 5.0 mEq/L [facility] Chloride 106 96 - 110 mEq/L [facility] CO2 24 24 - 32 mEq/L [facility] 05/10/2008 5:00 EST 05/10/2008 5:11 EST Jose Alejandro Castro MD CHEMISTRY & BLOOD GAS ORDERABLE S Final Result Performing Organization Address [facility] de Phone Number [facility] [address] [place] [address] * (ABNORMAL) HEMAGRAM AND DIFFERENTIAL (05/10/2008 5:00 EST) Pathologist [facility] WBC 24.49(H) 4.6 - 11.2 K/cmm [facility] RBC 3.15(L) 4.50 - 5.30 M/cmm [facility] Hemoglobin 8.3(L) 13.0 - 16.0 [...] [facility] ABS Monocytes 0.49 K/cmm [facility] RBC Morphology 1+ Anisocytosis 1+ Microcytes 1+ Poikilocytosis [facility] WBC Morphology 1+ Toxic granulation [facility] Type of Diff: Manual TRUE [facility] 05/10/2008 5:00 EST 05/10/2008 5:11 EST Jose Alejandro Castro MD PACKAGES & DNA PROBE ORDERABLES Final Result Performing Organization Address [facility] de Phone Number [facility] [address] [place] [address] * (ABNORMAL) PTT (05/10/2008 5:00 EST) PTT 38(H) 20 - 35 secs [facility] Comment:Therapeutic Heparin range: 60-100 seconds 05/10/2008 5:00 EST 05/10/2008 5:11 EST Jose Alejandro Castro MD HEMATOLOGY & PF4 ORDERABLES Fin al Result Performing Organization Address [facility] Co de Phone Number [facility] [address] [place] [address] * (ABNORMAL) PROTIME (05/10/2008 5:00 EST) Pro [...] ORDERABLES Fin al Result Performing Organization Address [facility] de Phone Number [facility] [address] [place] [address] * CALCIUM IONIZED (05/10/2008 5:00 EST) Ionized Calcium Note Sample sent to Lab. [facility] 05/10/2008 5:00 EST 05/10/2008 5:11 EST Jose Alejandro Castro MD CHEMISTRY & BLOOD GAS ORDERABLE S Final Result Performing Organization Address [facility] de Phone Number [facility] [address] [place] [address] * (ABNORMAL) BLOOD GAS, CG4 ISTAT (05/10/2008 [...] Sample Type ARTERIAL ANISHA GARCIA Tech ID [id number] Test Performed by Respiratory [facility] 05/10/2008 4:59 EST 05/10/2008 5:38 EST Jose Alejandro Castro MD CHEMISTRY & BLOOD GAS ORDERABLE S Final Result Performing Organization Address City/[facility]/ZIP Co de Phone Number [facility] [address] [place] [address] * GLUCOSE, GLUCOMETER (05/10/2008 4:03 EST) Glucose, Fingerstick 87 70 - 100 mg/dl [facility] Poolroom/Poolhall Manager ID [id number] Test Performed by Nursing Services [facility] 05/10/2008 4:03 EST 05/10/2008 23:15 EST Jose Alejandro Castro MD CHEMISTRY & BLOOD GAS ORDERABLE S Final Result Performing Organization Address [facility] Co de Phone Number [facility] [address] [place] [address] * (ABNORMAL) GLUCOSE, GLUCOMETER (05/10/2008 3:00 EST) Glucose, Fingerstick 68(L) 70 - 100 mg/dl [facility] Poolroom/Poolhall Manager ID [id number] Test Performed by Nursing Services [facility] 05/10/2008 3:00 EST 05/10/2008 23:15 EST Jose Alejandro Castro MD CHEMISTRY & BLOOD GAS ORDERABLE S Final Result Performing Organization Address [facility] Co de Phone Number [facility] [address] [place] [address] * (ABNORMAL) GLUCOSE, GLUCOMETER (05/10/2008 2:03 EST) Glucose, Fingerstick 116(H) 70 - 100 mg/dl [facility] Poolroom/Poolhall Manager ID [id number] Test Performed by Nursing Services [facility] 05/10/2008 2:03 EST 05/10/2008 23:15 EST Jose Alejandro Castro MD CHEMISTRY & BLOOD GAS ORDERABLE S Final Result Performing Organization Address City/[facility]/ZIP Co de Phone Number [facility] [address] [place] [address] * (ABNORMAL) BLOOD GAS, CG4 ISTAT (05/10/2008 [...] [facility] Sample Type ARTERIAL [facility] marking stitcher ID [id number] Test Performed by Respiratory [facility] 05/10/2008 1:22 EST 05/10/2008 1:26 EST Jose Alejandro Castro MD CHEMISTRY & BLOOD GAS ORDERABLE S Final Result [facility] [address] [place] [address] * (ABNORMAL) GLUCOSE, GLUCOMETER (05/10/2008 1:21 EST) Glucose, Fingerstick 130(H) 70 - 100 mg/dl [facility] Poolroom/Poolhall Manager ID [id number] Test Performed by Nursing Services [facility] 05/10/2008 1:21 EST 05/10/2008 23:15 EST Jose Alejandro Castro MD CHEMISTRY & BLOOD GAS ORDERABLE S Final Result [facility] [address] [place] [address] * CALCIUM, IONIZED (05/10/2008 1:20 EST) Calcium, Ionized 1.15 1.12 - 1.32 mmol/L [facility] [place]itcher [place] [id number] Test performed by Chemistry [facility] 05/10/2008 1:20 EST 05/10/2008 1:23 EST us Jose Alejandro Castro MD CHEMISTRY & BLOOD GAS ORDERABLE S Final Result [facility] [address] [place] [address] * (ABNORMAL) BLOOD GAS, G3 ISTAT (05/10/2008 [...] [facility] Sample Type VENOUS [facility] marking stitcher ID [id number] Test Performed by Respiratory [facility] 05/10/2008 1:17 EST 05/10/2008 1:26 EST us Jose Alejandro Castro MD CHEMISTRY & BLOOD GAS ORDERABLE S Final Result [facility] [address] [place] [address] * (ABNORMAL) BLOOD GAS, CG4 ISTAT (05/10/2008 [...] [facility] Sample Type ARTERIAL [facility] marking stitcher ID [id number] Test Performed by Respiratory [facility] 05/10/2008 1:12 EST 05/10/2008 1:26 EST us Jose Alejandro Castro MD CHEMISTRY & BLOOD GAS ORDERABLE S Final Result Performing Organization Address [facility] Phone Number [facility] [address] [place] [address] * PHOSPHORUS (05/10/2008 1:10 EST) Phosphorus 3.1 2.7 - 4.7 mg/dl [facility] 05/10/2008 1:10 EST 05/10/2008 1:17 EST Jose Alejandro Castro MD CHEMISTRY & BLOOD GAS ORDERABLE S Final Result Performing Organization Address [facility] Phone Number [facility] [address] [place] [address] * MAGNESIUM (05/10/2008 1:10 EST) Magnesium 1.9 1.7 - 2.8 mg/dl [facility] 05/10/2008 1:10 EST 05/10/2008 1:17 EST us Jose Alejandro Castro MD CHEMISTRY & BLOOD GAS ORDERABLE S Final Result Performing Organization Address [facility] Phone Number [facility] [address] [place] [address] * (ABNORMAL) ELECTROLYTES (05/10/2008 1:10 EST) Sodium 134(L) 136 - 145 mEq/L [facility] Potassium 5.1(H) 3.5 - 5.0 mEq/L [facility] Chloride 105 96 - 110 mEq/L [facility] CO2 21(L) 24 - 32 mEq/L [facility] 05/10/2008 1:10 EST 05/10/2008 1:17 EST us Jose Alejandro Castro MD CHEMISTRY & BLOOD GAS ORDERABLE S Final Result [facility] [address] [place] [address] * CALCIUM IONIZED (05/10/2008 1:10 EST) Ionized Calcium Note Sample sent to Lab. [facility] 05/10/2008 1:10 EST 05/10/2008 1:17 EST Jose Alejandro Castro MD CHEMISTRY & BLOOD GAS ORDERABLE S Final Result Performing Organization Address City/[facility]/ZIP Co de Phone Number [facility] [address] [place] [address] * (ABNORMAL) GLUCOSE, GLUCOMETER (05/10/2008 0:20 EST) Glucose, Fingerstick 115(H) 70 - 100 mg/dl [facility] Poolroom/Poolhall Manager ID [id number] Test Performed by Nursing Services [facility] 05/10/2008 0:20 EST 05/10/2008 23:14 EST Jose Alejandro Castro MD CHEMISTRY & BLOOD GAS ORDERABLE S Final Result Performing Organization Address [facility] Co de Phone Number [facility] [address] [place] [address] * (ABNORMAL) GLUCOSE, GLUCOMETER (05/09/2008 23:03 EST) Glucose, Fingerstick 113(H) 70 - 100 mg/dl [facility] Poolroom/Poolhall Manager ID [id number] Test Performed by Nursing Services [facility] 05/09/2008 23:0 3 EST 05/09/2008 23:14 EST Jose Alejandro Castro MD CHEMISTRY & BLOOD GAS ORDERABLE S Final Result Performing Organization Address City/[facility] Co de Phone Number [facility] [address] [place] [address] * (ABNORMAL) GLUCOSE, GLUCOMETER (05/09/2008 22:11 EST) Glucose, Fingerstick 118(H) 70 - 100 mg/dl [facility] Poolroom/Poolhall Manager ID [id number] Test Performed by Nursing Services [facility] 05/09/2008 22:1 1 EST 05/09/2008 23:14 EST Jose Alejandro Castro MD CHEMISTRY & BLOOD GAS ORDERABLE S Final Result Performing Organization Address [facility] Phone Number [facility] [address] [place] [address] * (ABNORMAL) CALCIUM, IONIZED (05/09/2008 21:26 EST) Calcium, Ionized 1.08(L) 1.12 - 1.32 mmol/L [facility] [place] stitcher [place] [id number] Test performed by Chemistry [facility] 05/09/2008 21:2 6 EST 05/09/2008 21:29 EST Jose Alejandro Castro MD CHEMISTRY & BLOOD GAS ORDERABLE S Final Result Performing Organization Address [facility] Phone Number [facility] [address] [place] [address] * GLUCOSE, GLUCOMETER (05/09/2008 21:25 EST) Glucose, Fingerstick 87 70 - 100 mg/dl [facility] Poolroom/Poolhall Manager ID [id number] Test Performed by Nursing Services [facility] 05/09/2008 21:2 5 EST 05/09/2008 23:14 EST Jose Alejandro Castro MD CHEMISTRY & BLOOD GAS ORDERABLE S Final Result Performing Organization Address [facility] de Phone Number [facility] [address] [place] [address] * (ABNORMAL) BLOOD GAS, G3 ISTAT (05/09/2008 [...] [facility] Sample Type VENOUS [facility]IS[facility] marking stitcher ID [id number] Test Performed by Respiratory [facility] 05/09/2008 21:1 5 EST 05/09/2008 21:25 EST Jose Alejandro Castro MD CHEMISTRY & BLOOD GAS ORDERABLE S Final Result Performing Organization Address [facility] de Phone Number [facility] [address] [place] [address] * PHOSPHORUS (05/09/2008 21:10 EST) Pathologist [facility] Phosphorus 2.9 2.7 - 4.7 mg/dl [facility] 05/09/2008 21:1 0 EST 05/09/2008 21:16 EST Jose Alejandro Castro MD CHEMISTRY & BLOOD GAS ORDERABLE S Final Result Performing Organization Address [facility] Phone Number [facility] [address] [place] [address] * MAGNESIUM (05/09/2008 21:10 EST) [facility] Magnesium 1.9 1.7 - 2.8 mg/dl [facility] 05/09/2008 21:1 0 EST 05/09/2008 21:16 EST Jose Alejandro Castro MD CHEMISTRY & BLOOD GAS ORDERABLE S Final Result Performing Organization Address [facility] de Phone Number [facility] [address] [place] [address] * (ABNORMAL) ELECTROLYTES (05/09/2008 21:10 EST) Sodium [...] ORDERABLE S Final Result Performing Organization Address [facility] Co de Phone Number [facility] [address] [place] [address] * CALCIUM IONIZED (05/09/2008 21:10 EST) Ionized Calcium Note Sample sent to Lab. [facility] 05/09/2008 21:1 0 EST 05/09/2008 21:16 EST us Jose Alejandro Castro MD CHEMISTRY & BLOOD GAS ORDERABLE S Final Result Performing Organization Address [facility] de Phone Number [facility] [address] [place] [address] * (ABNORMAL) BLOOD GAS, CG4 ISTAT (05/09/2008 [...] [facility] Sample Type ARTERIAL [facility]IS[facility] marking stitcher ID [id number] Test Performed by Respiratory [facility] 05/09/2008 21:0 9 EST 05/09/2008 21:25 EST us Jose Alejandro Castro MD CHEMISTRY & BLOOD GAS ORDERABLE S Final Result Performing Organization Address [facility] de Phone Number [facility] [address] [place] [address] * GLUCOSE, GLUCOMETER (05/09/2008 20:15 EST) Glucose, Fingerstick 94 70 - 100 mg/dl [facility] Poolroom/Poolhall Manager ID [id number] Test Performed by Nursing Services [facility] 05/09/2008 20:1 5 EST 05/09/2008 23:14 EST Jose Alejandro Castro MD CHEMISTRY & BLOOD GAS ORDERABLE S Final Result Performing Organization Address [facility] Co de Phone Number [facility] [address] [place] [address] * GLUCOSE, GLUCOMETER (05/09/2008 19:03 EST) Glucose, Fingerstick 84 70 - 100 mg/dl [facility] Poolroom/Poolhall Manager ID [id number] Test Performed by Nursing Services [facility] 05/09/2008 19:0 3 EST 05/09/2008 23:14 EST Jose Alejandro Castro MD CHEMISTRY & BLOOD GAS ORDERABLE S Final Result Performing Organization Address [facility] Co de Phone Number [facility] [address] [place] [address] * GLUCOSE, GLUCOMETER (05/09/2008 18:09 EST) Glucose, Fingerstick 72 70 - 100 mg/dl [facility] Poolroom/Poolhall Manager ID [id number] Test Performed by Nursing Services [facility] 05/09/2008 18:0 9 EST 05/09/2008 23:14 EST Jose Alejandro Castro MD CHEMISTRY & BLOOD GAS ORDERABLE S Final Result Performing Organization Address [facility] de Phone Number [facility] [address] [place] [address] * CALCIUM, IONIZED (05/09/2008 17:20 EST) Calcium, Ionized 1.12 1.12 - 1.32 mmol/L [facility] marking stitcher [place] [id number] Test performed by Chemistry [facility] 05/09/2008 17:2 0 EST 05/09/2008 17:24 EST us Jose Alejandro Castro MD CHEMISTRY & BLOOD GAS ORDERABLE S Final Result Performing Organization Address [facility] Co de Phone Number [facility] [address] [place] [address] * (ABNORMAL) BLOOD GAS, CG4 ISTAT (05/09/2008 [...] [facility] Sample Type ARTERIAL [facility] marking stitcher ID [id number] Test Performed by Respiratory [facility] 05/09/2008 17:1 6 EST 05/09/2008 17:22 EST us Jose Alejandro Castro MD CHEMISTRY & BLOOD GAS ORDERABLE S Final Result Performing Organization Address [facility] de Phone Number [facility] [address] [place] [address] * (ABNORMAL) BLOOD GAS, G3 ISTAT (05/09/2008 [...] [facility] Sample Type VENOUS [facility] marking stitcher ID [id number] Test Performed by Respiratory [facility] 05/09/2008 17:0 9 EST 05/09/2008 17:22 EST Jose Alejandro Castro MD CHEMISTRY & BLOOD GAS ORDERABLE S Final Result [facility] [address] [place] [address] * GLUCOSE, GLUCOMETER (05/09/2008 17:06 EST) Glucose, Fingerstick 85 70 - 100 mg/dl [facility] Poolroom/Poolhall Manager ID [id number] Test Performed by Nursing Services [facility] 05/09/2008 17:0 6 EST 05/09/2008 23:14 EST us Jose Alejandro Castro MD CHEMISTRY & BLOOD GAS ORDERABLE S Final Result Performing Organization Address [facility] Co de Phone Number [facility] [address] [place] [address] * GLUCOSE, SERUM (05/09/2008 17:00 EST) Glucose, Serum 72 70 - 100 mg/dl [facility] 05/09/2008 17:0 0 EST 05/09/2008 17:15 EST Jose Alejandro Castro MD CHEMISTRY & BLOOD GAS ORDERABLE S Final Result Performing Organization Address [facility] Co de Phone Number [facility] [address] [place] [address] * PHOSPHORUS (05/09/2008 17:00 EST) Phosphorus 2.9 2.7 - 4.7 mg/dl [facility] 05/09/2008 17:0 0 EST 05/09/2008 17:15 EST Jose Alejandro Castro MD CHEMISTRY & BLOOD GAS ORDERABLE S Final Result Performing Organization Address City/[facility]/ZIP Co de Phone Number [facility] [address] [place] [address] * MAGNESIUM (05/09/2008 17:00 EST) Magnesium 2.0 1.7 - 2.8 mg/dl [facility] 05/09/2008 17:0 0 EST 05/09/2008 17:15 EST Jose Alejandro Castro MD CHEMISTRY & BLOOD GAS ORDERABLE S Final Result Performing Organization Address City/[facility]/ZIP Co de Phone Number [facility] [address] [place] [address] * CREATININE (05/09/2008 17:00 EST) Pathologist [facility] Creatinine 0.80 0.6 - 1.2 mg/dl [facility] GFR, Calculated Age <18 ml/min/1.7 3m2 [facility] 05/09/2008 17:0 0 EST 05/09/2008 17:15 EST Jose Alejandro Castro MD CHEMISTRY & BLOOD GAS ORDERABLE S Final Result Performing Organization Address [facility] Co de Phone Number [facility] [address] [place] [address] * BUN (05/09/2008 17:00 EST) BUN 16 8 - 21 mg/dl [facility] 05/09/2008 17:0 0 EST 05/09/2008 17:15 EST Jose Alejandro Castro MD CHEMISTRY & BLOOD GAS ORDERABLE S Final Result Performing Organization Address [facility] de Phone Number [facility] [address] [place] [address] * (ABNORMAL) ELECTROLYTES (05/09/2008 17:00 EST) Sodium [...] ORDERABLE S Final Result Performing Organization Address [facility] Co de Phone Number [facility] [address] [place] [address] * CALCIUM IONIZED (05/09/2008 17:00 EST) Ionized Calcium Note Sample sent to Lab. [facility] 05/09/2008 17:0 0 EST 05/09/2008 17:15 EST us Jose Alejandro Castro MD CHEMISTRY & BLOOD GAS ORDERABLE S Final Result Performing Organization Address [facility] de Phone Number [facility] [address] [place] [address] * GLUCOSE, GLUCOMETER (05/09/2008 15:58 EST) Glucose, Fingerstick 85 70 - 100 mg/dl [facility] Poolroom/Poolhall Manager ID [id number] Test Performed by Nursing Services [facility] 05/09/2008 15:5 8 EST 05/09/2008 23:14 EST us Jose Alejandro Castro MD CHEMISTRY & BLOOD GAS ORDERABLE S Final Result Performing Organization Address [facility] de Phone Number [facility] [address] [place] [address] * GLUCOSE, GLUCOMETER (05/09/2008 15:04 EST) Glucose, Fingerstick 83 70 - 100 mg/dl [facility] Poolroom/Poolhall Manager ID [id number] Test Performed by Nursing Services [facility] 05/09/2008 15:0 4 EST 05/09/2008 23:14 EST us Jose Alejandro Castro MD CHEMISTRY & BLOOD GAS ORDERABLE S Final Result Performing Organization Address [facility]/ZIP Co de Phone Number [facility] [address] [place] [address] * GLUCOSE, GLUCOMETER (05/09/2008 14:05 EST) Glucose, Fingerstick 88 70 - 100 mg/dl [facility] Poolroom/Poolhall Manager ID [id number] Test Performed by Nursing Services [facility] 05/09/2008 14:0 5 EST 05/09/2008 23:14 EST us Jose Alejandro Castro MD CHEMISTRY & BLOOD GAS ORDERABLE S Final Result Performing Organization Address City/[facility] Co de Phone Number [facility] [address] [place] [address] * (ABNORMAL) BLOOD GAS, G3 ISTAT (05/09/2008 [...] [facility] Sample Type VENOUS [facility]IS[facility] marking stitcher ID [id number] Test Performed by Respiratory [facility] 05/09/2008 13:2 6 EST 05/09/2008 13:30 EST us Jose Alejandro Castro MD CHEMISTRY & BLOOD GAS ORDERABLE S Final Result [facility] [address] [place] [address] * (ABNORMAL) CALCIUM, IONIZED (05/09/2008 13:21 EST) Calcium, Ionized 1.11(L) 1.12 - 1.32 mmol/L [facility] marking stitcher [place] [id number] Test performed by Chemistry [facility] 05/09/2008 13:2 1 EST 05/09/2008 13:30 EST Jose Alejandro Castro MD CHEMISTRY & BLOOD GAS ORDERABLE S Final Result Performing Organization Address [facility] Co de Phone Number [facility] [address] [place] [address] * (ABNORMAL) BLOOD GAS, CG4 ISTAT (05/09/2008 [...] [facility] Sample Type ARTERIAL [facility]IS[facility] marking stitcher ID [id number] Test Performed by Respiratory [facility] 05/09/2008 13:1 2 EST 05/09/2008 13:30 EST Jose Alejandro Castro MD CHEMISTRY & BLOOD GAS ORDERABLE S Final Result Performing Organization Address [facility] de Phone Number [facility] [address] [place] [address] * GLUCOSE, GLUCOMETER (05/09/2008 13:08 EST) Glucose, Fingerstick 94 70 - 100 mg/dl [facility] Poolroom/Poolhall Manager ID [id number] Test Performed by Nursing Services [facility] 05/09/2008 13:0 8 EST 05/09/2008 23:14 EST Jose Alejandro Castro MD CHEMISTRY & BLOOD GAS ORDERABLE S Final Result Performing Organization Address [facility] Co de Phone Number [facility] [address] [place] [address] * GLUCOSE, SERUM (05/09/2008 13:00 EST) Glucose, Serum 87 70 - 100 mg/dl [facility] 05/09/2008 13:0 0 EST 05/09/2008 13:13 EST Jose Alejandro Castro MD CHEMISTRY & BLOOD GAS ORDERABLE S Final Result Performing Organization Address [facility] Phone Number [facility] [address] [place] [address] * PHOSPHORUS (05/09/2008 13:00 EST) Phosphorus 3.2 2.7 - 4.7 mg/dl [facility] 05/09/2008 13:0 0 EST 05/09/2008 13:13 EST Jose Alejandro Castro MD CHEMISTRY & BLOOD GAS ORDERABLE S Final Result Performing Organization Address [facility] Phone Number [facility] [address] [place] [address] * MAGNESIUM (05/09/2008 13:00 EST) Magnesium 1.9 1.7 - 2.8 mg/dl [facility] 05/09/2008 13:0 0 EST 05/09/2008 13:13 EST Jose Alejandro Castro MD CHEMISTRY & BLOOD GAS ORDERABLE S Final Result Performing Organization Address [facility] Phone Number [facility] [address] [place] [address] * (ABNORMAL) ELECTROLYTES (05/09/2008 13:00 EST) Sodium [...] ORDERABLE S Final Result Performing Organization Address City/[facility]/ZIP Co de Phone Number [facility] [address] [place] [address] * CALCIUM IONIZED (05/09/2008 13:00 EST) Ionized Calcium Note Sample sent to Lab. [facility] 05/09/2008 13:0 0 EST 05/09/2008 13:13 EST Jose Alejandro Castro MD CHEMISTRY & BLOOD GAS ORDERABLE S Final Result Performing Organization Address [facility]/ZIP Co de Phone Number [facility] [address] [place] [address] * (ABNORMAL) GLUCOSE, GLUCOMETER (05/09/2008 11:57 EST) Glucose, Fingerstick 104(H) 70 - 100 mg/dl [facility] Poolroom/Poolhall Manager ID [id number] Test Performed by Nursing Services [facility] 05/09/2008 11:5 7 EST 05/09/2008 23:14 EST Jose Alejandro Castro MD CHEMISTRY & BLOOD GAS ORDERABLE S Final Result Performing Organization Address [facility] Co de Phone Number [facility] [address] [place] [address] * (ABNORMAL) GLUCOSE, GLUCOMETER (05/09/2008 11:07 EST) Glucose, Fingerstick 128(H) 70 - 100 mg/dl [facility] Poolroom/Poolhall Manager ID [id number] Test Performed by Nursing Services [facility] 05/09/2008 11:0 7 EST 05/09/2008 23:14 EST Jose Alejandro Castro MD CHEMISTRY & BLOOD GAS ORDERABLE S Final Result Performing Organization Address City/[facility]/ZIP Co de Phone Number [facility] [address] [place] [address] * (ABNORMAL) GLUCOSE, GLUCOMETER (05/09/2008 10:17 EST) Glucose, Fingerstick 123(H) 70 - 100 mg/dl [facility] Poolroom/Poolhall Manager ID [id number] Test Performed by Nursing Services [facility] 05/09/2008 10:1 7 EST 05/09/2008 23:14 EST Jose Alejandro Castro MD CHEMISTRY & BLOOD GAS ORDERABLE S Final Result Performing Organization Address [facility] Co de Phone Number [facility] [address] [place] [address] * SODIUM, URINE RANDOM (05/09/2008 10:17 EST) Sodium, Ur 99.0 mEq/L [facility] 05/09/2008 10:1 7 EST 05/09/2008 10:27 EST Jose Alejandro Castro MD URINALYSIS ORDERABLES Final Res ult Performing Organization Address [facility] de Phone Number [facility] [address] [place] [address] * (ABNORMAL) GLUCOSE, GLUCOMETER (05/09/2008 9:10 EST) Glucose, Fingerstick 105(H) 70 - 100 mg/dl [facility] Poolroom/Poolhall Manager ID [id number] Test Performed by Nursing Services [facility] 05/09/2008 9:10 EST 05/09/2008 23:14 EST Jose Alejandro Castro MD CHEMISTRY & BLOOD GAS ORDERABLE S Final Result Performing Organization Address [facility] de Phone Number [facility] [address] [place] [address] * (ABNORMAL) CALCIUM, IONIZED (05/09/2008 8:24 EST) Calcium, Ionized 1.07(L) 1.12 - 1.32 mmol/L [place] [id number] Test performed by Chemistry [facility] 05/09/2008 8:24 EST 05/09/2008 8:27 EST us Jose Alejandro Castro MD CHEMISTRY & BLOOD GAS ORDERABLE S Final Result [facility] [address] [place] [address] * (ABNORMAL) BLOOD GAS, G3 ISTAT (05/09/2008 8:18 EST) pH, i-STAT 7.36 7.35 - 7.45 [facility] pCO2, i-STAT 37 35 - 45 mmHg [facility] pO2, i-STAT 40(L) 85 - 100 mmHg [facility] TCO2, i-STAT 22 mEq/L [facility] O2 Saturation 73 % FLEMARSHA STEVENS [facility] Base Deficit 4 [facility]NC[facility] Temperature 36.9 C [facility] FIO2 .40 [facility] Sample Type VENOUS [facility]IS[facility] marking stitcher ID [id number] Test Performed by Respiratory [facility] 05/09/2008 8:18 EST 05/09/2008 8:25 EST us Jose Alejandro Castro MD CHEMISTRY & BLOOD GAS ORDERABLE S Final Result [facility] [address] [place] [address] * (ABNORMAL) BLOOD GAS, CG4 ISTAT (05/09/2008 [...] [facility] Sample Type ARTERIAL [facility] marking stitcher ID [id number] Test Performed by Respiratory [facility] 05/09/2008 8:08 EST 05/09/2008 8:25 EST us Jose Alejandro Castro MD CHEMISTRY & BLOOD GAS ORDERABLE S Final Result Performing Organization Address [facility] de Phone Number [facility] [address] [place] [address] * (ABNORMAL) GLUCOSE, GLUCOMETER (05/09/2008 8:05 EST) Glucose, Fingerstick 109(H) 70 - 100 mg/dl [facility] Poolroom/Poolhall Manager ID [id number] Test Performed by Nursing Services [facility] 05/09/2008 8:05 EST 05/09/2008 23:14 EST us Jose Alejandro Castro MD CHEMISTRY & BLOOD GAS ORDERABLE S Final Result Performing Organization Address [facility] Phone Number [facility] [address] [place] [address] * (ABNORMAL) GLUCOSE, SERUM (05/09/2008 8:00 EST) Glucose, Serum 103(H) 70 - 100 mg/dl [facility] Comment:Heparinized plasma. 05/09/2008 8:00 EST 05/09/2008 8:19 EST us Jose Alejandro Castro MD CHEMISTRY & BLOOD GAS ORDERABLE S Final Result Performing Organization Address [facility] de Phone Number [facility] [address] [place] [address] * PHOSPHORUS (05/09/2008 8:00 EST) Phosphorus 3.2 2.7 - 4.7 mg/dl [facility] Comment:Heparinized plasma. 05/09/2008 8:00 EST 05/09/2008 8:19 EST us Jose Alejandro Castro MD CHEMISTRY & BLOOD GAS ORDERABLE S Final Result Performing Organization Address [facility] Co de Phone Number [facility] [address] [place] [address] * MAGNESIUM (05/09/2008 8:00 EST) Pathologist [facility] Magnesium 1.7 1.7 - 2.8 mg/dl [facility] Comment:Heparinized plasma. 05/09/2008 8:00 EST 05/09/2008 8:19 EST Jose Alejandro Castro MD CHEMISTRY & BLOOD GAS ORDERABLE S Final Result Performing Organization Address [facility] Phone Number [facility] [address] [place] [address] * (ABNORMAL) ELECTROLYTES (05/09/2008 8:00 EST) Pathologist [facility] Sodium 133(L) 136 - 145 mEq/L AN[facility] [...] ORDERABLE S Final Result Performing Organization Address [facility] Phone Number [facility] [address] [place] [address] * CALCIUM IONIZED (05/09/2008 8:00 EST) Pathologist [facility] Ionized Calcium Note Sample sent to Lab. [facility] 05/09/2008 8:00 EST 05/09/2008 8:19 EST Jose Alejandro Castro MD CHEMISTRY & BLOOD GAS ORDERABLE S Final Result Performing Organization Address [facility] de Phone Number [facility] [address] [place] [address] * PORTABLE CHEST 1 VIEW (05/09/2008 7:15 [...] 70 - 100 mg/dl [facility] Poolroom/Poolhall Manager ID [id number] Test Performed by Nursing Services [facility] 05/09/2008 7:00 EST 05/09/2008 23:14 EST Jose Alejandro Castro MD CHEMISTRY & BLOOD GAS ORDERABLE S Final Result Performing Organization Address [facility] de Phone Number [facility] [address] [place] [address] * GLUCOSE, GLUCOMETER (05/09/2008 6:03 EST) Glucose, Fingerstick 78 70 - 100 mg/dl [facility] Poolroom/Poolhall Manager ID [id number] Test Performed by Nursing Services [facility] 05/09/2008 6:03 EST 05/09/2008 23:14 EST Jose Alejandro Castro MD CHEMISTRY & BLOOD GAS ORDERABLE S Final Result Performing Organization Address [facility] Phone Number [facility] [address] [place] [address] * TROPONIN I (05/09/2008 5:20 EST) Troponin I pre 2012 0.73 ng/ml [facility] Comment: Reference Range: Normal: ??Less than 0.05 Indeterminate: ??0.05-0.80 Positive: ??Greater than 0.80 05/09/2008 5:20 EST 05/09/2008 5:23 EST Jose Alejandro Castro MD CHEMISTRY & BLOOD GAS ORDERABLE S Final Result Performing Organization Address [facility] de Phone Number [facility] [address] [place] [address] * (ABNORMAL) CK MB WITH TOTAL CK (05/09/2008 5:20 EST) CK 6,434 U/L [facility] MB 125.6(H) 0 - 5.0 ng/ml [facility] CK-MB Index 2.0 0 - 2.5 [facility] 05/09/2008 5:20 EST 05/09/2008 5:23 EST Jose Alejandro Castro MD CHEMISTRY & BLOOD GAS ORDERABLE S Final Result Performing Organization Address [facility] de Phone Number [facility] [address] [place] [address] * (ABNORMAL) GLUCOSE, GLUCOMETER (05/09/2008 5:00 EST) Glucose, Fingerstick 119(H) 70 - 100 mg/dl [facility] Poolroom/Poolhall Manager ID [id number] Test Performed by Nursing Services [facility] 05/09/2008 5:00 EST 05/09/2008 23:14 EST Jose Alejandro Castro MD CHEMISTRY & BLOOD GAS ORDERABLE S Final Result Performing Organization Address [facility] de Phone Number [facility] [address] [place] [address] * (ABNORMAL) CALCIUM, IONIZED (05/09/2008 4:27 EST) Calcium, Ionized 1.05(L) 1.12 - 1.32 mmol/L [facility] [place]itcher [place] [id number] Test performed by Chemistry [facility] 05/09/2008 4:27 EST 05/09/2008 4:31 EST Jose Alejandro Castro MD CHEMISTRY & BLOOD GAS ORDERABLE S Final Result Performing Organization Address [facility] de Phone Number [facility] [address] [place] [address] * (ABNORMAL) BLOOD GAS, G3 ISTAT (05/09/2008 [...] [facility] Sample Type VENOUS [facility]IS[facility] marking stitcher ID [id number] Test Performed by Respiratory [facility] 05/09/2008 4:19 EST 05/09/2008 4:22 EST Jose Alejandro Castro MD CHEMISTRY & BLOOD GAS ORDERABLE S Final Result Performing Organization Address [facility] Co de Phone Number [facility] [address] [place] [address] * (ABNORMAL) BLOOD GAS, CG4 ISTAT (05/09/2008 [...] [facility] Sample Type ARTERIAL [facility]IS[facility] marking stitcher ID [id number] Test Performed by Respiratory [facility] 05/09/2008 4:13 EST 05/09/2008 4:22 EST Jose Alejandro Castro MD CHEMISTRY & BLOOD GAS ORDERABLE S Final Result Performing Organization Address [facility] Co de Phone Number [facility] [address] [place] [address] * (ABNORMAL) GLUCOSE, GLUCOMETER (05/09/2008 4:10 EST) Glucose, Fingerstick 112(H) 70 - 100 mg/dl [facility] Poolroom/Poolhall Manager ID [id number] Test Performed by Nursing Services [facility] 05/09/2008 4:10 EST 05/09/2008 23:14 EST Jose Alejandro Castro MD CHEMISTRY & BLOOD GAS ORDERABLE S Final Result Performing Organization Address [facility] Phone Number [facility] [address] [place] [address] * (ABNORMAL) AST (05/09/2008 4:10 EST) AST 273(H) 15 - 46 U/L [facility] Comment:Sample retested, res ult confirmed 05/09/2008 4:10 EST 05/09/2008 4:17 EST Jose Alejandro Castro MD CHEMISTRY & BLOOD GAS ORDERABLE S Final Result Performing Organization Address [facility] Phone Number [facility] [address] [place] [address] * (ABNORMAL) PTT (05/09/2008 4:10 EST) PTT 42(H) 20 - 35 secs [facility] Comment:Therapeutic Heparin range: 60-100 seconds 05/09/2008 4:10 EST 05/09/2008 4:17 EST Jose Alejandro Castro MD HEMATOLOGY & PF4 ORDERABLES Fin al Result Performing Organization Address [facility] Phone Number [facility] [address] [place] [address] * (ABNORMAL) PROTIME (05/09/2008 4:10 EST) Pro [...] ORDERABLES Fin al Result Performing Organization Address [facility] Co de Phone Number [facility] [address] [place] [address] * (ABNORMAL) GLUCOSE, SERUM (05/09/2008 4:10 EST) Glucose, Serum 101(H) 70 - 100 mg/dl [facility] 05/09/2008 4:10 EST 05/09/2008 4:17 EST Jose Alejandro Castro MD CHEMISTRY & BLOOD GAS ORDERABLE S Final Result Performing Organization Address [facility] Phone Number [facility] [address] [place] [address] * PHOSPHORUS (05/09/2008 4:10 EST) Phosphorus 3.1 2.7 - 4.7 mg/dl [facility] 05/09/2008 4:10 EST 05/09/2008 4:17 EST Jose Alejandro Castro MD CHEMISTRY & BLOOD GAS ORDERABLE S Final Result Performing Organization Address [facility] Phone Number [facility] [address] [place] [address] * MAGNESIUM (05/09/2008 4:10 EST) Magnesium 1.8 1.7 - 2.8 mg/dl [facility] 05/09/2008 4:10 EST 05/09/2008 4:17 EST Jose Alejandro Castro MD CHEMISTRY & BLOOD GAS ORDERABLE S Final Result Performing Organization Address [facility] de Phone Number [facility] [address] [place] [address] * GGT (05/09/2008 4:10 EST) GGT 34 10 - 35 U/L [facility] 05/09/2008 4:10 EST 05/09/2008 4:17 EST us Jose Alejandro Castro MD CHEMISTRY & BLOOD GAS ORDERABLE S Final Result Performing Organization Address [facility]/ZIP Co de Phone Number [facility] [address] [place] [address] * CREATININE (05/09/2008 4:10 EST) Creatinine 0.80 0.6 - 1.2 mg/dl [facility] GFR, Calculated Age <18 ml/min/1.7 3m2 [facility] 05/09/2008 4:10 EST 05/09/2008 4:17 EST us Jose Alejandro Castro MD CHEMISTRY & BLOOD GAS ORDERABLE S Final Result Performing Organization Address [facility] Co de Phone Number [facility] [address] [place] [address] * BUN (05/09/2008 4:10 EST) BUN 10 8 - 21 mg/dl [facility] 05/09/2008 4:10 EST 05/09/2008 4:17 EST us Jose Alejandro Castro MD CHEMISTRY & BLOOD GAS ORDERABLE S Final Result Performing Organization Address [facility] Co de Phone Number [facility] [address] [place] [address] * TOTAL & DIRECT BILIRUBIN (05/09/2008 4:10 EST) Conjugated Bilirubin 0.0 0.0 - 0.3 mg/dl [facility] Unconjugated Bilirubin 0.6 0.1 - 1.1 mg/dl [facility] Bilirubin, Total <0.5 0.0 - 1.4 mg/dl [facility] 05/09/2008 4:10 EST 05/09/2008 4:17 EST us Jose Alejandro Castro MD CHEMISTRY & BLOOD GAS ORDERABLE S Final Result Performing Organization Address [facility]/ZIP Co de Phone Number [facility] [address] [place] [address] * (ABNORMAL) ALT (05/09/2008 4:10 EST) ALT 89(H) 0 - 45 U/L [facility] 05/09/2008 4:10 EST 05/09/2008 4:17 EST Jose Alejandro Castro MD CHEMISTRY & BLOOD GAS ORDERABLE S Final Result Performing Organization Address [facility] de Phone Number [facility] [address] [place] [address] * (ABNORMAL) ALBUMIN (05/09/2008 4:10 EST) Pathologist [facility] Albumin 2.7(L) 3.0 - 5.5 g/dl [facility] 05/09/2008 4:10 EST 05/09/2008 4:17 EST Jose Alejandro Castro MD CHEMISTRY & BLOOD GAS ORDERABLE S Final Result Performing Organization Address [facility] de Phone Number [facility] [address] [place] [address] * (ABNORMAL) ELECTROLYTES (05/09/2008 4:10 EST) Sodium [...] ORDERABLE S Final Result Performing Organization Address [facility] Co de Phone Number [facility] [address] [place] [address] * TROPONIN I (05/09/2008 4:10 EST) [facility] Troponin I pre 2012 Sample quantity insufficient for testing. ng/ml [facility] 05/09/2008 4:10 EST 05/09/2008 4:17 EST Jose Alejandro Castro MD CHEMISTRY & BLOOD GAS ORDERABLE S Final Result Performing Organization Address [facility]/ZIP Co de Phone Number [facility] [address] [place] [address] * CK MB WITH TOTAL CK (05/09/2008 4:10 EST) [facility] CK Sample quantity insufficient for testing. U/L [facility] MB Sample quantity insufficient for testing. 0 - 5.0 ng/ml [facility] CK-MB Index Sample quantity insufficient for testing. 0 - 2.5 [facility] 05/09/2008 4:10 EST 05/09/2008 4:17 EST Jose Alejandro Castro MD CHEMISTRY & BLOOD GAS ORDERABLE S Final Result Performing Organization Address [facility] Co de Phone Number [facility] [address] [place] [address] * (ABNORMAL) HEMAGRAM AND DIFFERENTIAL (05/09/2008 4:10 EST) [facility] WBC 41.47(H) 4.6 - 11.2 K/cmm [facility] [...] PROBE ORDERABLES Final Result Performing Organization Address [facility] de Phone Number [facility] [address] [place] [address] * CALCIUM IONIZED (05/09/2008 4:10 EST) Ionized Calcium Note Sample sent to Lab. [facility] 05/09/2008 4:10 EST 05/09/2008 4:17 EST Jose Alejandro Castro MD CHEMISTRY & BLOOD GAS ORDERABLE S Final Result Performing Organization Address [facility] Co de Phone Number [facility] [address] [place] [address] * (ABNORMAL) GLUCOSE, GLUCOMETER (05/09/2008 3:03 EST) Glucose, Fingerstick 219(H) 70 - 100 mg/dl [facility] Poolroom/Poolhall Manager ID [id number] Test Performed by Nursing Services [facility] 05/09/2008 3:03 EST 05/09/2008 23:14 EST Jose Alejandro Castro MD CHEMISTRY & BLOOD GAS ORDERABLE S Final Result Performing Organization Address [facility] Co de Phone Number [facility] [address] [place] [address] * (ABNORMAL) GLUCOSE, GLUCOMETER (05/09/2008 2:04 EST) Glucose, Fingerstick 259(H) 70 - 100 mg/dl [facility] Poolroom/Poolhall Manager ID [id number] Test Performed by Nursing Services [facility] 05/09/2008 2:04 EST 05/09/2008 23:14 EST Jose Alejandro Castro MD CHEMISTRY & BLOOD GAS ORDERABLE S Final Result Performing Organization Address [facility]/ZIP Co de Phone Number [facility] [address] [place] [address] * (ABNORMAL) GLUCOSE, GLUCOMETER (05/09/2008 1:11 EST) Glucose, Fingerstick 258(H) 70 - 100 mg/dl [facility] Poolroom/Poolhall Manager ID [id number] Test Performed by Nursing Services [facility] 05/09/2008 1:11 EST 05/09/2008 23:14 EST us Jose Alejandro Castro MD CHEMISTRY & BLOOD GAS ORDERABLE S Final Result Performing Organization Address [facility] de Phone Number [facility] [address] [place] [address] * (ABNORMAL) BLOOD GAS, G3 ISTAT (05/09/2008 [...] [facility] Sample Type ARTERIAL ANISHA [facility] marking stitcher ID [id number] Test Performed by Respiratory [facility] 05/09/2008 0:29 EST 05/09/2008 4:22 EST Jose Alejandro Castro MD CHEMISTRY & BLOOD GAS ORDERABLE S Final Result Performing Organization Address [facility] de Phone Number [facility] [address] [place] [address] * (ABNORMAL) CALCIUM, IONIZED (05/09/2008 0:28 EST) [facility] Calcium, Ionized 1.08(L) 1.12 - 1.32 mmol/L [facility] [place]itcher [place] [id number] Test performed by Chemistry [facility] 05/09/2008 0:28 EST 05/09/2008 0:31 EST us Jose Alejandro Castro MD CHEMISTRY & BLOOD GAS ORDERABLE S Final Result Performing Organization Address [facility] de Phone Number [facility] [address] [place] [address] * (ABNORMAL) BLOOD GAS, CG4 ISTAT (05/09/2008 0:25 EST) [facility] pH, i-STAT 7.27(L) 7.35 - 7.45 [facility] [...] [facility] Sample Type ARTERIAL [facility]IS[facility] marking stitcher ID [id number] Test Performed by Respiratory [facility] 05/09/2008 0:25 EST 05/09/2008 4:22 EST us Jose Alejandro Castro MD CHEMISTRY & BLOOD GAS ORDERABLE S Final Result Performing Organization Address [facility] de Phone Number [facility] [address] [place] [address] * (ABNORMAL) GLUCOSE, GLUCOMETER (05/09/2008 0:17 EST) [facility] Glucose, Fingerstick 270(H) 70 - 100 mg/dl [facility] Poolroom/Poolhall Manager ID [id number] Test Performed by Nursing Services [facility] 05/09/2008 0:17 EST 05/09/2008 23:14 EST Jose Alejandro Castro MD CHEMISTRY & BLOOD GAS ORDERABLE S Final Result Performing Organization Address [facility] de Phone Number [facility] [address] [place] [address] * (ABNORMAL) GLUCOSE, SERUM (05/09/2008 0:10 EST) Glucose, Serum 243(H) 70 - 100 mg/dl [facility] 05/09/2008 0:10 EST 05/09/2008 0:22 EST Jose Alejandro Castro MD CHEMISTRY & BLOOD GAS ORDERABLE S Final Result Performing Organization Address [facility] Phone Number [facility] [address] [place] [address] * PHOSPHORUS (05/09/2008 0:10 EST) Phosphorus 3.0 2.7 - 4.7 mg/dl [facility] 05/09/2008 0:10 EST 05/09/2008 0:22 EST Jose Alejandro Castro MD CHEMISTRY & BLOOD GAS ORDERABLE S Final Result Performing Organization Address [facility] de Phone Number [facility] [address] [place] [address] * (ABNORMAL) MAGNESIUM (05/09/2008 0:10 EST) Magnesium 1.5(L) 1.7 - 2.8 mg/dl [facility] 05/09/2008 0:10 EST 05/09/2008 0:22 EST Jose Alejandro Castro MD CHEMISTRY & BLOOD GAS ORDERABLE S Final Result Performing Organization Address [facility] de Phone Number [facility] [address] [place] [address] * (ABNORMAL) ELECTROLYTES (05/09/2008 0:10 EST) Sodium 138 136 - 145 mEq/L [facility] Potassium 5.6(H) 3.5 - 5.0 mEq/L [facility] Chloride 109 96 - 110 mEq/L [facility] CO2 19(L) 24 - 32 mEq/L [facility] 05/09/2008 0:10 EST 05/09/2008 0:22 EST Jose Alejandro Castro MD CHEMISTRY & BLOOD GAS ORDERABLE S Final Result Performing Organization Address [facility]/ZIP Co de Phone Number [facility] [address] [place] [address] * CALCIUM IONIZED (05/09/2008 0:10 EST) Ionized Calcium Note Sample sent to Lab. [facility] 05/09/2008 0:10 EST 05/09/2008 0:22 EST Jose Alejandro Castro MD CHEMISTRY & BLOOD GAS ORDERABLE S Final Result Performing Organization Address [facility]/ZIP Co de Phone Number [facility] [address] [place] [address] * (ABNORMAL) GLUCOSE, GLUCOMETER (05/08/2008 22:59 EST) Glucose, Fingerstick 333(H) 70 - 100 mg/dl [facility] Poolroom/Poolhall Manager ID [id number] Test Performed by Nursing Services [facility] 05/08/2008 22:5 9 EST 05/08/2008 23:11 EST Jose Alejandro aCstro MD CHEMISTRY & BLOOD GAS ORDERABLE S Final Result Performing Organization Address [facility]/ZIP Co de Phone Number [facility] [address] [place] [address] * (ABNORMAL) GLUCOSE, GLUCOMETER (05/08/2008 21:07 EST) Glucose, Fingerstick 345(H) 70 - 100 mg/dl [facility] Poolroom/Poolhall Manager ID [id number] Test Performed by Nursing Services [facility] 05/08/2008 21:0 7 EST 05/08/2008 21:20 EST Jose Alejandro Castro MD CHEMISTRY & BLOOD GAS ORDERABLE S Final Result Performing Organization Address [facility] de Phone Number [facility] [address] [place] [address] * CALCIUM, IONIZED (05/08/2008 20:17 EST) [facility] Calcium, Ionized 1.23 1.12 - 1.32 mmol/L [facility] marking stitcher ID [id number] Test performed by Chemistry [facility] 05/08/2008 20:1 7 EST 05/08/2008 20:19 EST Jose Alejandro Castro MD CHEMISTRY & BLOOD GAS ORDERABLE S Final Result Performing Organization Address [facility] de Phone Number [facility] [address] [place] [address] * (ABNORMAL) BLOOD GAS, G3 ISTAT (05/08/2008 20:08 EST) [facility] pH, i-STAT 7.25(L) 7.35 - 7.45 [facility] [...] [facility] Sample Type VENOUS [facility]IS[facility] marking stitcher ID [id number] Test Performed by Respiratory [facility] 05/08/2008 20:0 8 EST 05/08/2008 20:15 EST us Jose Alejandro Castro MD CHEMISTRY & BLOOD GAS ORDERABLE S Final Result Performing Organization Address [facility] de Phone Number [facility] [address] [place] [address] * (ABNORMAL) GLUCOSE, GLUCOMETER (05/08/2008 20:06 EST) Glucose, Fingerstick 363(H) 70 - 100 mg/dl [facility] Poolroom/Poolhall Manager ID [id number] Test Performed by Nursing Services [facility] 05/08/2008 20:0 6 EST 05/08/2008 21:19 EST Jose Alejandro Castro MD CHEMISTRY & BLOOD GAS ORDERABLE S Final Result Performing Organization Address [facility] de Phone Number [facility] [address] [place] [address] * VANCOMYCIN, RANDOM (05/08/2008 20:05 EST) Vancomycin Random 10.7 ug/ml [facility] Comment: Reference Range: Trough: 5.0-20.0 Peak: ??30.0-40.0 05/08/2008 20:0 5 EST 05/08/2008 20:11 EST Jose Alejandro Castro MD CHEMISTRY & BLOOD GAS ORDERABLE S Final Result Performing Organization Address [facility] de Phone Number [facility] [address] [place] [address] * (ABNORMAL) GLUCOSE, SERUM (05/08/2008 20:05 EST) Glucose, Serum 362(H) 70 - 100 mg/dl [facility] 05/08/2008 20:0 5 EST 05/08/2008 20:11 EST Jose Alejandro Castro MD CHEMISTRY & BLOOD GAS ORDERABLE S Final Result Performing Organization Address [facility] Co de Phone Number [facility] [address] [place] [address] * PHOSPHORUS (05/08/2008 20:05 EST) Phosphorus 2.8 2.7 - 4.7 mg/dl [facility] 05/08/2008 20:0 5 EST 05/08/2008 20:11 EST us Jose Alejandro Castro MD CHEMISTRY & BLOOD GAS ORDERABLE S Final Result Performing Organization Address [facility]/ZIP Co de Phone Number [facility] [address] [place] [address] * (ABNORMAL) MAGNESIUM (05/08/2008 20:05 EST) Magnesium 1.5(L) 1.7 - 2.8 mg/dl [facility] 05/08/2008 20:0 5 EST 05/08/2008 20:11 EST us Jose Alejandro Castro MD CHEMISTRY & BLOOD GAS ORDERABLE S Final Result Performing Organization Address [facility] de Phone Number [facility] [address] [place] [address] * CREATININE (05/08/2008 20:05 EST) Creatinine 1.10 0.6 - 1.2 mg/dl [facility] GFR, Calculated Age <18 ml/min/1.7 3m2 [facility] 05/08/2008 20:0 5 EST 05/08/2008 20:11 EST us Jose Alejandro Castro MD CHEMISTRY & BLOOD GAS ORDERABLE S Final Result Performing Organization Address [facility] Co de Phone Number [facility] [address] [place] [address] * BUN (05/08/2008 20:05 EST) BUN 14 8 - 21 mg/dl [facility] 05/08/2008 20:0 5 EST 05/08/2008 20:11 EST us Jose Alejandro Castro MD CHEMISTRY & BLOOD GAS ORDERABLE S Final Result Performing Organization Address [facility] Co de Phone Number [facility] [address] [place] [address] * (ABNORMAL) ELECTROLYTES (05/08/2008 20:05 EST) Sodium [...] ORDERABLE S Final Result Performing Organization Address [facility]/ZIP Co de Phone Number [facility] [address] [place] [address] * (ABNORMAL) HEMAGRAM (05/08/2008 20:05 EST) WBC [...] [facility] RDW-CV 17.2 % [facility] 05/08/2008 20:0 5 EST 05/08/2008 20:11 EST Jose Alejandro Castro MD HEMATOLOGY & PF4 ORDERABLES Fin al Result Performing Organization Address [facility]/ZIP Co de Phone Number [facility] [address] [place] [address] * CALCIUM IONIZED (05/08/2008 20:05 EST) Ionized Calcium Note Sample sent to Lab. [facility] 05/08/2008 20:0 5 EST 05/08/2008 20:11 EST Jose Alejandro Castro MD CHEMISTRY & BLOOD GAS ORDERABLE S Final Result Performing Organization Address [facility] de Phone Number [facility] [address] [place] [address] * (ABNORMAL) BLOOD GAS, CG4 ISTAT (05/08/2008 [...] [facility] Sample Type ARTERIAL [facility]IS[facility] marking stitcher ID [id number] Test Performed by Respiratory [facility] 05/08/2008 20:0 2 EST 05/08/2008 20:15 EST us Jose Alejandro Castro MD CHEMISTRY & BLOOD GAS ORDERABLE S Final Result Performing Organization Address [facility] de Phone Number [facility] [address] [place] [address] * MRSA MOLECULAR DETECTION (05/08/2008 20:00 EST) Specimen Description Nares Specimen submitted on a swab [facility] Result NEGATIVE for Methicillin Resistant Staphylococcus aureus DNA by PCR. [facility] Report Status Final 05/09/2008 [facility] 05/08/2008 20:0 0 EST 05/08/2008 20:44 EST Jose Alejandro Castro MD MICROBIOLOGY - GENERAL ORDERABL ES Final Result Performing Organization Address [facility]/ZIP Co de Phone Number [facility] [address] [place] [address] * POTASSIUM (05/08/2008 19:00 EST) Potassium 4.5 3.5 - 5.0 mEq/L [facility] 05/08/2008 19:0 0 EST 05/08/2008 19:03 EST Jose Alejandro Castro MD CHEMISTRY & BLOOD GAS ORDERABLE S Final Result Performing Organization Address [facility] Co de Phone Number [facility] [address] [place] [address] * (ABNORMAL) GLUCOSE, GLUCOMETER (05/08/2008 18:13 EST) Glucose, Fingerstick 422(H) 70 - 100 mg/dl [facility] Poolroom/Poolhall Manager ID [id number] Test Performed by Nursing Services [facility] 05/08/2008 18:1 3 EST 05/08/2008 21:19 EST Jose Alejandro Castro MD CHEMISTRY & BLOOD GAS ORDERABLE S Final Result Performing Organization Address [facility] de Phone Number [facility] [address] [place] [address] * (ABNORMAL) CALCIUM, IONIZED (05/08/2008 16:31 EST) Calcium, Ionized 1.37(H) 1.12 - 1.32 mmol/L [facility] marking stitcher ID [id number] Test performed by Chemistry [facility] LAB 05/08/2008 16:3 1 EST 05/08/2008 16:35 EST Jose Alejandro Castro MD CHEMISTRY & BLOOD GAS ORDERABLE S Final Result Performing Organization Address [facility] de Phone Number [facility] [address] [place] [address] * (ABNORMAL) GLUCOSE, SERUM (05/08/2008 16:27 EST) Glucose, Serum 456(H) 70 - 100 mg/dl [facility] 05/08/2008 16:2 7 EST 05/08/2008 16:27 EST us Jose Alejandro Castro MD CHEMISTRY & BLOOD GAS ORDERABLE S Final Result Performing Organization Address [facility] de Phone Number [facility] [address] [place] [address] * (ABNORMAL) PHOSPHORUS (05/08/2008 16:27 EST) Phosphorus 1.5(L) 2.7 - 4.7 mg/dl [facility] 05/08/2008 16:2 7 EST 05/08/2008 16:27 EST us Jose Alejandro Castro MD CHEMISTRY & BLOOD GAS ORDERABLE S Final Result Performing Organization Address [facility] Phone Number [facility] [address] [place] [address] * MAGNESIUM (05/08/2008 16:27 EST) Magnesium 1.8 1.7 - 2.8 mg/dl [facility] 05/08/2008 16:2 7 EST 05/08/2008 16:27 EST us Jose Alejandro Castro MD CHEMISTRY & BLOOD GAS ORDERABLE S Final Result Performing Organization Address [facility] de Phone Number [facility] [address] [place] [address] * (ABNORMAL) CREATININE (05/08/2008 16:27 EST) Creatinine 1.40(H) 0.6 - 1.2 mg/dl [facility] Comment:Sample retested, res ult confirmed GFR, Calculated Age <18 ml/min/1.7 3m2 [facility] 05/08/2008 16:2 7 EST 05/08/2008 16:27 EST us Jose Alejandro Castro MD CHEMISTRY & BLOOD GAS ORDERABLE S Final Result Performing Organization Address City/[facility]/ZIP Co de Phone Number [facility] [address] [place] [address] * BUN (05/08/2008 16:27 EST) BUN 16 8 - 21 mg/dl [facility] 05/08/2008 16:2 7 EST 05/08/2008 16:27 EST Jose Alejandro Castro MD CHEMISTRY & BLOOD GAS ORDERABLE S Final Result Performing Organization Address [facility] de Phone Number [facility] [address] [place] [address] * (ABNORMAL) ELECTROLYTES (05/08/2008 16:27 EST) Sodium [...] ORDERABLE S Final Result Performing Organization Address [facility] de Phone Number [facility] [address] [place] [address] * CALCIUM IONIZED (05/08/2008 16:27 EST) Ionized Calcium Note Sample sent to Lab. [facility] 05/08/2008 16:2 7 EST 05/08/2008 16:27 EST Jose Alejandro Castro MD CHEMISTRY & BLOOD GAS ORDERABLE S Final Result Performing Organization Address [facility] de Phone Number [facility] [address] [place] [address] * (ABNORMAL) BLOOD GAS, G3 ISTAT (05/08/2008 16:22 EST) pH, i-STAT 7.16(L) 7.35 - 7.45 [facility] pCO2, i-STAT 38 35 - 45 mmHg [facility] pO2, i-STAT 54(L) 85 - 100 mmHg [facility] TCO2, i-STAT 15 mEq/L [facility] O2 Saturation 82 % [facility] Base Deficit 15 [facility] Temperature 35.6 C [facility] FIO2 .40 [facility] Sample Type VENOUS [facility] marking stitcher ID [id number] Test Performed by Respiratory [facility] 05/08/2008 16:2 2 EST 05/08/2008 16:30 EST Jose Alejandro Castro MD CHEMISTRY & BLOOD GAS ORDERABLE S Final Result Performing Organization Address [facility] de Phone Number [facility] [address] [place] [address] * (ABNORMAL) BLOOD GAS, CG4 ISTAT (05/08/2008 16:14 EST) [facility] pH, i-STAT 7.17(L) 7.35 - 7.45 [facility] [...] [facility] Sample Type ARTERIAL ANISHA MCF[place] marking stitcher ID [id number] Test Performed by Respiratory [facility] 05/08/2008 16:1 4 EST 05/08/2008 16:30 EST us Jose Alejandro Castro MD CHEMISTRY & BLOOD GAS ORDERABLE S Final Result Performing Organization Address [facility] de Phone Number [facility] [address] [place] [address] * (ABNORMAL) GLUCOSE, GLUCOMETER (05/08/2008 16:11 EST) Glucose, Fingerstick 456(H) 70 - 100 mg/dl [facility] Poolroom/Poolhall Manager ID [id number] Test Performed by Nursing Services [facility] 05/08/2008 16:1 1 EST 05/08/2008 21:19 EST us Jose Alejandro Castro MD CHEMISTRY & BLOOD GAS ORDERABLE S Final Result Performing Organization Address City/State/[facility] Co de Phone Number [facility] [address] [place] [address] * PORTABLE CHEST 1 VIEW (05/08/2008 14:48 [...] (ABNORMAL) CALCIUM, IONIZED (05/08/2008 13:04 EST) Pathologist [facility] Calcium, Ionized 1.42(H) 1.12 - 1.32 mmol/L [place]HA [place] [id number] Test performed by Chemistry [facility] 05/08/2008 13:0 4 EST 05/08/2008 13:08 EST Jose Alejandro Castro MD CHEMISTRY & BLOOD GAS ORDERABLE S Final Result Performing Organization Address [facility] de Phone Number [facility] [address] [place] [address] * (ABNORMAL) PHOSPHORUS (05/08/2008 12:57 EST) [facility] Phosphorus <1.0(L) 2.7 - 4.7 mg/dl [facility] Comment:Sample retested, res ult confirmed 05/08/2008 12:5 7 EST 05/08/2008 12:57 EST Jose Alejandro Castro MD CHEMISTRY & BLOOD GAS ORDERABLE S Final Result Performing Organization Address [facility] de Phone Number [facility] [address] [place] [address] * (ABNORMAL) HEMAGRAM AND DIFFERENTIAL (05/08/2008 12:57 EST) Pathologist [facility] WBC 20.03(H) 4.6 - 11.2 K/cmm [facility] RBC 3.88(L) 4.50 - 5.30 M/cmm [facility] Hemoglobin 10.2(L) 13.0 - 16.0 gm/dl [facility] HCT 29.8(L) 37.0 - 49.0 % [facility] MCV 77(L) 78 - 98 fl [facility] MCH 26.4 pg [facility] MCHC 34.3 gm/dl [facility] PLT 141(L) 156 - 312 K/cmm [facility] RDW-CV 17.5 % [facility] Neutrophils 65.0 % [facility] % Bands 27.0 % [facility] Lymphocytes 3.0 % [facility] Monocytes 1.0 % [facility] % Metamyelocytes 4.0 % [facility] ABS Neutrophils 13.02 K/cmm [facility] ABS Bands 5.41 K/cmm [facility] ABS Lymphs 0.60 K/cmm [facility] ABS Monocytes 0.20 K/[facility] ABS Metamyelocytes 0.80 K/cmm [facility] RBC Morphology 1+ Poikilocytosis 1+ Anisocytosis 1+ Microcytes 1+ Ovalocytes [facility] Comment Rev'd by Pathologist [facility] Type of Diff: Manual TRUE [facility] 05/08/2008 12:5 7 EST 05/08/2008 12:57 EST us Jose Alejandro Castro MD PACKAGES & DNA PROBE ORDERABLES Final Result [facility] [address] [place] [address] * (ABNORMAL) TOTAL PROTEIN (05/08/2008 12:57 EST) [facility] Total Protein 5.0(L) 6.3 - 8.6 g/dl [facility] 05/08/2008 12:5 7 EST 05/08/2008 12:57 EST Jose Alejandro Castro MD CHEMISTRY & BLOOD GAS ORDERABLE S Final Result Performing Organization Address [facility] Co de Phone Number [facility] [address] [place] [address] * (ABNORMAL) GLUCOSE, SERUM (05/08/2008 12:57 EST) Glucose, Serum 488(H) 70 - 100 mg/dl [facility] 05/08/2008 12:5 7 EST 05/08/2008 12:57 EST Jose Alejandro Castro MD CHEMISTRY & BLOOD GAS ORDERABLE S Final Result Performing Organization Address [facility] Phone Number [facility] [address] [place] [address] * (ABNORMAL) MAGNESIUM (05/08/2008 12:57 EST) Magnesium 1.4(L) 1.7 - 2.8 mg/dl [facility] 05/08/2008 12:5 7 EST 05/08/2008 12:57 EST Jose Alejandro Castro MD CHEMISTRY & BLOOD GAS ORDERABLE S Final Result Performing Organization Address [facility] Phone Number [facility] [address] [place] [address] * TOTAL & DIRECT BILIRUBIN (05/08/2008 12:57 EST) Conjugated Bilirubin 0.0 0.0 - 0.3 mg/dl [facility] Unconjugated Bilirubin 0.3 0.1 - 1.1 mg/dl [facility] Bilirubin, Total <0.5 0.0 - 1.4 mg/dl [facility] 05/08/2008 12:5 7 EST 05/08/2008 12:57 EST us Jose Alejandro Castro MD CHEMISTRY & BLOOD GAS ORDERABLE S Final Result Performing Organization Address [facility]/ZIP Co de Phone Number [facility] [address] [place] [address] * (ABNORMAL) ALBUMIN (05/08/2008 12:57 EST) Pathologist [facility] Albumin 2.7(L) 3.0 - 5.5 g/dl [facility] 05/08/2008 12:5 7 EST 05/08/2008 12:57 EST Jose Alejandro Castro MD CHEMISTRY & BLOOD GAS ORDERABLE S Final Result Performing Organization Address [facility] de Phone Number [facility] [address] [place] [address] * (ABNORMAL) ELECTROLYTES (05/08/2008 12:57 EST) [facility] Sodium 141 136 - 145 mEq/L [...] ORDERABLE S Final Result Performing Organization Address [facility] de Phone Number [facility] [address] [place] [address] * CALCIUM IONIZED (05/08/2008 12:57 EST) Pathologist [facility] Ionized Calcium Note Sample sent to Lab. [facility] 05/08/2008 12:5 7 EST 05/08/2008 12:57 EST Jose Alejandro Castro MD CHEMISTRY & BLOOD GAS ORDERABLE S Final Result Performing Organization Address [facility] Co de Phone Number [facility] [address] [place] [address] * (ABNORMAL) BLOOD GAS, G3 ISTAT (05/08/2008 12:52 EST) Pathologist [facility] pH, i-STAT 7.13(L) 7.35 - 7.45 [facility] pCO2, i-STAT 36 35 - 45 mmHg [facility] pO2, i-STAT 58(L) 85 - 100 mmHg [facility] TCO2, i-STAT 13 mEq/L FLENANCY Hoffman [facility] O2 Saturation 82 % TRUE [facility] Base Deficit 16 [facility]TC[facility] Temperature 36.2 C [facility] Sample Type VENOUS [facility] marking stitcher ID [id number] Test Performed by Respiratory [facility] 05/08/2008 12:5 2 EST 05/08/2008 12:56 EST us Jose Alejandro Castro MD CHEMISTRY & BLOOD GAS ORDERABLE S Final Result Performing Organization Address [facility] de Phone Number [facility] [address] [place] [address] * (ABNORMAL) BLOOD GAS, CG4 ISTAT (05/08/2008 12:46 EST) [facility] pH, i-STAT 7.20(L) 7.35 - 7.45 [facility] [...] [facility] Sample Type ARTERIAL [facility] marking stitcher ID [id number] Test Performed by Respiratory [facility] 05/08/2008 12:4 6 EST 05/08/2008 12:56 EST Jose Alejandro Castro MD CHEMISTRY & BLOOD GAS ORDERABLE S Final Result Performing Organization Address [facility] Co de Phone Number [facility] [address] [place] [address] * BACTERIAL CULTURE, BLOOD (05/08/2008 12:00 EST) Specimen Description Blood Arterial Line Pediatric bottle received Volume of blood collected may not be adequate for detection of bacteremia/se pticemia. [facility] Result No growth [facility] Report Status Final [id number] [facility] 05/08/2008 12:0 0 EST 05/08/2008 12:00 EST Jose Alejandro Catsro MD MICROBIOLOGY - GENERAL ORDERABL ES Final Result Performing Organization Address [facility] de Phone Number [facility] [address] [place] [address] * BACTERIAL CULTURE, BLOOD (05/08/2008 11:59 EST) Specimen Description Blood Venous specimen. [facility] Result No growth [facility] Report Status Final [id number] [facility] 05/08/2008 11:5 9 EST 05/08/2008 11:59 EST oJse Alejandro Castro MD MICROBIOLOGY - GENERAL ORDERABL ES Final Result Performing Organization Address [facility] de Phone Number [facility] [address] [place] [address] * ECHOCARDIOGRAM (05/08/2008 10:55 EST) Anatomical Region Laterality Modality Other 05/08/2008 10:5 5 EST Narrative 11/21/2008 8:55 EDT ? ventricular dysfunction Site Location: Date of Appt: Thursday, May 08, 2008, 10:55 AM Pediatric Echocardiogram Report Demographics and Visit Data: : 1990. ??Age: 17y/10m/23d. ??BSA (m 2): 1.78. Weight (kg): 75. ??Patient location: [place] [address]. ??Weight Centile: 67.41. Person requesting test: JOSE [...] Midwall Diastolic Dimension ? 6.18 ? cm [place]'s Name: YASMINE MEJIA MD Date/time of reading: [...] 2): 1.78. Weight (kg): 75. Patient location: [place] [address]. Weight Centile: 67.41. Person requesting test: JOSE [...] 2 LV Midwall Diastolic Dimension 6.18 cm [place]'s Name: ROBERTO PANG,YASMINE LEIVA Date/time of reading: [...] ORDERABL ES Final Result Performing Organization Address [facility] de Phone Number [facility] [address] [place] [address] * (ABNORMAL) BLOOD GAS, G3 ISTAT (05/08/2008 [...] LAB Sample Type NOT GIVEN [facility] marking stitcher ID [id number] Test Performed by Respiratory [facility] 05/08/2008 8:45 EST 05/08/2008 8:51 EST Jose Alejandro Castro MD CHEMISTRY & BLOOD GAS ORDERABLE S Final Result Performing Organization Address [facility] de Phone Number [facility] [address] [place] [address] * (ABNORMAL) BLOOD GAS, CG4 ISTAT (05/08/2008 [...] [facility] Sample Type ARTERIAL ANISHA [facility] marking stitcher ID [id number] Test Performed by Respiratory [facility] 05/08/2008 8:35 EST 05/08/2008 8:51 EST us Jose Alejandro Castro MD CHEMISTRY & BLOOD GAS ORDERABLE S Final Result [facility] [address] [place] [address] * ABDOMEN AP 1 VIEW (05/08/2008 8:35 [...] [facility] Sample Type ARTERIAL ANISHA MCF[facility] marking stitcher ID [id number] Test Performed by Respiratory [facility] 05/08/2008 8:28 EST 05/08/2008 8:51 EST us Jose Alejandro Castro MD CHEMISTRY & BLOOD GAS ORDERABLE S Final Result Performing Organization Address [facility] de Phone Number [facility] [address] [place] [address] * (ABNORMAL) GLUCOSE, GLUCOMETER (05/08/2008 8:24 EST) Glucose, Fingerstick 173(H) 70 - 100 mg/dl [facility] Poolroom/Poolhall Manager ID [id number] Test Performed by Nursing Services [facility] 05/08/2008 8:24 EST 05/08/2008 21:19 EST Jose Alejandro Castro MD CHEMISTRY & BLOOD GAS ORDERABLE S Final Result Performing Organization Address [facility] Co de Phone Number [facility] [address] [place] [address] * (ABNORMAL) BLOOD GAS, CG4 ISTAT (05/08/2008 6:56 EST) Pathologist [facility] pH, i-STAT 7.12(L) 7.35 - 7.45 AN[facility]HA [...] [facility] Sample Type VENOUS [facility]IS[facility] marking stitcher ID [id number] Test Performed by Respiratory [facility] 05/08/2008 6:56 EST 05/08/2008 18:53 EST Jose Alejandro Castro MD CHEMISTRY & BLOOD GAS ORDERABLE S Final Result Performing Organization Address [facility] Co de Phone Number [facility] [address] [place] [address] * PTT (05/08/2008 6:50 EST) Pathologist [facility] PTT 33 20 - 35 secs [facility] Comment:Therapeutic Heparin range: 60-100 seconds 05/08/2008 6:50 EST 05/08/2008 7:00 EST Jose Alejandro Castro MD HEMATOLOGY & PF4 ORDERABLES Fin al Result Performing Organization Address [facility] de Phone Number [facility] [address] [place] [address] * (ABNORMAL) PROTIME (05/08/2008 6:50 EST) Pathologist [facility] Pro Time 16.3(H) 12.0 - 15.0 secs [facility] I.N.R. 1.3(H) 0.9 - 1.1 Ratio [facility] Comment: Moderate Intensity Coumadin INR = 2.0-3.0 Adjustments in anticoagulant therapy dose should be based upon the INR and NOT the Pro Time. 05/08/2008 6:50 EST 05/08/2008 7:00 EST Jose Alejandro Castro MD HEMATOLOGY & PF4 ORDERABLES Fin al Result Performing Organization Address [facility] Phone Number [facility] [address] [place] [address] * FIBRINOGEN (05/08/2008 6:50 EST) [facility] Fibrinogen 406 220 - 410 mg/dl [facility] 05/08/2008 6:50 EST 05/08/2008 7:00 EST Jose Alejandro Castro MD HEMATOLOGY & PF4 ORDERABLES Fin al Result Performing Organization Address [facility] Phone Number [facility] [address] [place] [address] * (ABNORMAL) D-DIMER (05/08/2008 6:50 EST) [facility] D-Dimer 1.88(H) <0.50 ug FEU/ml [facility] [...] ORDERABLES Fin al Result Performing Organization Address [facility] de Phone Number [facility] [address] [place] [address] * (ABNORMAL) HEMAGRAM AND DIFFERENTIAL (05/08/2008 6:50 EST) [facility] WBC 8.29 4.6 - 11.2 K/cmm [facility] [...] [facility] % Metamyelocytes 3.0 % [facility] Nucleated RBC's 1 /100 WBC'S [facility] ABS Neutrophils 4.40 K/cmm SHERI ELLE [facility] ABS Bands 0.33 K/cmm [facility] ABS Lymphs 2.90 K/cmm [facility] ABS Monocytes 0.41 K/cmm [facility] ABS Metamyelocytes 0.25 K/cmm [facility] RBC Morphology 1+ Anisocytosis 1+ Poikilocytosis 1+ Microcytes 1+ Ovalocytes [facility] Platelet Morphology 1+ Clumped platelets [facility] Type of Diff: Manual TRUE [facility] 05/08/2008 6:50 EST 05/08/2008 7:00 EST us Jose Alejandro Castro MD PACKAGES & DNA PROBE ORDERABLES Final Result [facility] [address] [place] [address] * TROPONIN I (05/08/2008 6:50 EST) [facility] Troponin I pre 2011 1.34 ng/ml [facility] Comment: Reference Range: Normal: ??Less than 0.05 Indeterminate: ??0.05-0.80 Positive: ??Greater than 0.80 05/08/2008 6:50 EST 05/08/2008 13:16 EST us Jose Alejandro Castro MD CHEMISTRY & BLOOD GAS ORDERABLE S Final Result Performing Organization Address City/[facility]/ZIP Co de Phone Number [facility] [address] [place] [address] * LACTIC ACID (05/08/2008 6:50 EST) Lactic Acid 5.0 mmol/L [facility] 05/08/2008 6:50 EST 05/08/2008 13:16 EST Jose Alejandro Castro MD CHEMISTRY & BLOOD GAS ORDERABLE S Final Result Performing Organization Address [facility] Co de Phone Number [facility] [address] [place] [address] * (ABNORMAL) CK MB WITH TOTAL CK (05/08/2008 6:50 EST) CK 140 U/L [facility] MB 9.0(H) 0 - 5.0 ng/ml [facility] CK-MB Index 6.4(H) 0 - 2.5 [facility] 05/08/2008 6:50 EST 05/08/2008 13:16 EST Jose Alejandro Castro MD CHEMISTRY & BLOOD GAS ORDERABLE S Final Result Performing Organization Address City/[facility]/ZIP Co de Phone Number [facility] [address] [place] [address] * (ABNORMAL) ALT (05/08/2008 6:50 EST) ALT 55(H) 0 - 45 U/L [facility] 05/08/2008 6:50 EST 05/08/2008 13:16 EST us Jose Alejandro Castro MD CHEMISTRY & BLOOD GAS ORDERABLE S Final Result [facility] [address] [place] [address] * (ABNORMAL) AST (05/08/2008 6:50 EST) AST 51(H) 15 - 46 U/L [facility] 05/08/2008 6:50 EST 05/08/2008 13:16 EST Jose Alejandro Castro MD CHEMISTRY & BLOOD GAS ORDERABLE S Final Result Performing Organization Address [facility] de Phone Number [facility] [address] [place] [address] * (ABNORMAL) GGT (05/08/2008 6:50 EST) GGT 42(H) 10 - 35 U/L [facility] 05/08/2008 6:50 EST 05/08/2008 13:16 EST us Jose Alejandro Castro MD CHEMISTRY & BLOOD GAS ORDERABLE S Final Result Performing Organization Address [facility] de Phone Number [facility] [address] [place] [address] * (ABNORMAL) PHOSPHORUS (05/08/2008 6:50 EST) Phosphorus 1.6(L) 2.7 - 4.7 mg/dl [facility] 05/08/2008 6:50 EST 05/08/2008 13:16 EST us Jose Alejandro Castro MD CHEMISTRY & BLOOD GAS ORDERABLE S Final Result Performing Organization Address [facility] de Phone Number [facility] [address] [place] [address] * MAGNESIUM (05/08/2008 6:50 EST) Magnesium 1.7 1.7 - 2.8 mg/dl [facility] 05/08/2008 6:50 EST 05/08/2008 13:16 EST us Jose Alejandro Castro MD CHEMISTRY & BLOOD GAS ORDERABLE S Final Result Performing Organization Address [facility]/ZIP Co de Phone Number [facility] [address] [place] [address] * (ABNORMAL) GLUCOSE, SERUM (05/08/2008 6:50 EST) Glucose, Serum 66(L) 70 - 100 mg/dl [facility] 05/08/2008 6:50 EST 05/08/2008 13:16 EST us Jose Alejandro Castro MD CHEMISTRY & BLOOD GAS ORDERABLE S Final Result Performing Organization Address [facility] Co de Phone Number [facility] [address] [place] [address] * (ABNORMAL) CREATININE (05/08/2008 6:50 EST) Creatinine 2.10(H) 0.6 - 1.2 mg/dl [facility] GFR, Calculated Age <18 ml/min/1.7 3m2 [facility] 05/08/2008 6:50 EST 05/08/2008 13:16 EST Jose Alejandro Castro MD CHEMISTRY & BLOOD GAS ORDERABLE S Final Result Performing Organization Address [facility] Co de Phone Number [facility] [address] [place] [address] * (ABNORMAL) BUN (05/08/2008 6:50 EST) BUN 25(H) 8 - 21 mg/dl [facility] 05/08/2008 6:50 EST 05/08/2008 13:16 EST us Jose Alejandro Castro MD CHEMISTRY & BLOOD GAS ORDERABLE S Final Result Performing Organization Address City/[facility]/ZIP Co de Phone Number [facility] [address] [place] [address] * (ABNORMAL) ELECTROLYTES (05/08/2008 6:50 EST) Sodium [...] ORDERABLE S Final Result Performing Organization Address [facility] Co de Phone Number [facility] [address] [place] [address] * (ABNORMAL) DELTA CREATININE (05/08/2008 6:50 EST) Pathologist [facility] Delta Creatinine Elevated initial creatinine or critical change in creatinine value.(AA) [facility] 05/08/2008 6:50 EST 05/08/2008 13:16 EST Jose Alejandro Castro MD CHEMISTRY & BLOOD GAS ORDERABLE S Final Result Performing Organization Address [facility] de Phone Number [facility] [address] [place] [address] * GLUCOSE, GLUCOMETER (05/08/2008 6:31 EST) Pathologist [facility] Glucose, Fingerstick 84 70 - 100 mg/dl [facility] Poolroom/Poolhall Manager ID [id number] Test Performed by Nursing Services [facility] 05/08/2008 6:31 EST 05/08/2008 21:19 EST us Jose Alejandro Castro MD CHEMISTRY & BLOOD GAS ORDERABLE S Final Result Performing Organization Address [facility] de Phone Number [facility] [address] [place] [address] documented in this encounter Visit Diagnoses Not on filedocumented in this encounter
--- OUTSIDE RECORDS SUMMARY | 2024-07-30 03:03 | XMS_ITS | Encounter Summary ---
Author Organization [facility] Address [address] [place] [address] Care Team Providers Care Cardiothoracic Surgeon Name Role Phone Corin Skinner MD Primary Care Provider [phone] Encounter Details Date Type Department Care Team (Late st Contact Info) Description 05/23/2006 Before PRISM Converted Visit (Maple) [facility] - Maple conversion [address] [place] [address] Marvin Perez MD [address] [place] [phone] Social History Tobacco Use Types Packs/Day [...] 05/23/2006 May 23, 2006 Kris Drew MD [address] [place] [id number] Drew: Miguel Angel Burgos was [...] [place] half south of [place], [place] and this is quite a trip for him to make. He and his family would like to considereither going to [place] or [place] for followup but I would also be [...] Perez MD 06/02/2006 10:50 Anastasiya Perez MDAssociate ProfessorMount Ascutney HospitalDivision of Neurological SurgeryMarvin Perez MD Marvin Perez MD Hearing Screen Coordinator [facility] Division of Neurological Surgery - Sunni Perez MD P - bb Job ID: [id number] Document ID: [id number] cc: Kris Drew MD documented in this encounter Plan of Treatment Upcoming Encounters Date Type Department Care Team (Late st Contact Info) Description 10/01/2024 13:40 EDT Office Visit [facility] Endocrinology - [facility] [address] [place] [address] Wilder Zaidi, DO 62 [facility] [address] [place] [phone] documented as of this encounter Visit Diagnoses Not on filedocumented in this encounter Care Teams Cardiothoracic Surgeon Relationship Specialty Start Date End Date Corin Skinner MD [address] [place] [phone] PCP - General 10/24/08 08/21/09 documented as of this encounter
--- OUTSIDE RECORDS SUMMARY | 2024-07-30 03:03 | XMS_ITS | Encounter Summary ---
Author Organization [facility] Address [address] [place] [address] Care Team Providers Care Whistle Punk Name Role Phone Corin Skinner MD Primary Care Provider [phone] Encounter Details Date Type Department Care Team (Late st Contact Info) Description 02/08/2008 Before PRISM Converted Visit (Maple) [facility] - Maple conversion [address] [place] [address] Rui Bazan MD Social History Tobacco Use Types Packs/Day Years Used Date Smoking Tobacco: Never Assessed Sex and Gender Information Value Date Recorded Sex Assigned at Not on file Legal Sex Male 18:35 EST Gender Identity Not on file Sexual Orientation Not on file documented as of this encounter Consult Notes * Rui Bazan III, MD - 04/03/2009 1928 EDT CONSULTATION - 02/08/2008 NEUROLOGY HEALTH CARE [...] before the family had gone out for [employer] food. He had had his medications at the usual time at 4:30 p.m. While at the [employer] the family stated that his body [...] Bazan III, MD - CHRISSY Job ID: [id number] Doc ID: [id number] cc: Yan Demarco MD documented in this encounter Plan of Treatment Upcoming Encounters Date Type Department Care Team (Late st Contact Info) Description 10/01/2024 13:40 EDT Office Visit [facility] Endocrinology - [facility] [address] [place] [address] Wilder Zaidi, 62 [facility] [address] [place] [address] documented as of this encounter Visit Diagnoses Not on filedocumented in this encounter Care Teams Whistle Punk Relationship Specialty Start Date End Date Corin Skinner MD [address] [place] [phone] PCP - General 10/24/08 08/21/09 documented as of this encounter
--- OUTSIDE RECORDS SUMMARY | 2024-07-30 03:03 | XMS_ITS | Encounter Summary ---
Author Organization [facility] Address [address] [place] [address] Care Team Providers Care Slip Cover Seamstress Name Role Phone Yan Demarco MD Primary Care Provider [phone] Corin Skinner MD Primary Care Provider [phone] Akil Serrano MD Primary Care Provider [phone] Encounter Details Date Type Department Care Team (Late st Contact Info) Description 08/19/2007 Results Only [facility] [place] [facility] - [facility] [address] [place], [place] [phone] [facility] [address] [place] [phone] Social History Tobacco Use Types Packs/Day Years [...] [facility] Endocrinology - [facility] [address] [place] [address] Wilder Zaidi, DO 62 [facility] [address] [place] [address] documented as of this encounter [...] 5 EST 08/19/2007 11:20 EST Skyler Edwards [facility] CHEMISTRY & BL OOD GAS ORDERABLES Final Result Performing Organization Address City/[facility] Co de Phone Number [facility] [address] [place] [address] * LH (08/19/2007 11:15 EST) Pathologist [facility] LH <0.1 mIU/ml [facility] 08/19/2007 11:1 5 EST 08/19/2007 11:20 EST Skyler Edwards [facility] CHEMISTRY & BL OOD GAS ORDERABLES Final Result Performing Organization Address City/[facility] Co de Phone Number [facility] [address] [place] [address] * T4 FREE (08/19/2007 11:15 EST) Free T4 0.8 0.8 - 1.5 ng/dL [facility] 08/19/2007 11:1 5 EST 08/19/2007 11:20 EST Skyler Aburto Grace [facility] CHEMISTRY & BL OOD GAS ORDERABLES Final Result [facility] [address] [place] [address] * FSH (08/19/2007 11:15 EST) Pathologist [facility] FSH <0.3 mIU/ml [facility] 08/19/2007 11:1 5 EST 08/19/2007 11:20 EST Skyler Aburto Grace [facility] CHEMISTRY & BL OOD GAS ORDERABLES Final Result Performing Organization Address [facility] Co de Phone Number [facility] [address] [place] [address] * (ABNORMAL) COMPREHENSIVE METABOLIC PANEL (08/19/2007 11:15 EST) Pathologist [facility] Potassium 3.7 3.5 - 5.0 mEq/L [facility] Sodium 118(LL) 136 - 145 [...] 5 EST 08/19/2007 11:20 EST Skyler Edwards [facility] CHEMISTRY & BL OOD GAS ORDERABLES Final Result [facility] [address] [place] [address] documented in this encounter Visit Diagnoses Not on filedocumented in this encounter Care Teams Slip Cover Seamstress Relationship Specialty Start Date End Date Yan Demarco MD [address] [place] [address] PCP - General 08/22/09 02/20/10 Corin Skinner MD [address] [place] [phone] PCP - General 10/24/08 08/21/09 Akil Serrano MD [address] [facility] [address] [place] [address] PCP - General 02/21/10 04/16/11 documented as of this encounter
--- OUTSIDE RECORDS SUMMARY | 2024-07-30 03:03 | XMS_ITS | Encounter Summary ---
Author Organization [facility] Address [address] [place] [address] Care Team Providers Care Adhesive Sprayer Name Role Phone Yan Demarco MD Primary Care Provider Corin Skinner MD Primary Care Provider [phone] Encounter Details Date Type Department Care Team (Late st Contact Info) Description 08/13/2005 Before PRISM Converted Visit (Maple) [facility] - Maple conversion [address] [place] [address] Skyler Edwards [facility] [address] [place] [address] Social History Tobacco Use Types [...] EST August 13, 2005 Kris Drew MD [address] [place] [phone] 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 His mother, social security benefits interviewer and two members of his care team at [facility] accompanied him to today's visit. Miguel Angel is now 15 years and one month old. This is his first visit back to the clinic since his transfer to the [facility] in [place]. However I have been in frequent contact with his physician, Dr. Ren Read, at the [facility] to address the multiple endocrine issues. Miguel [...] well as his nursing care at the [facility]. He still has no functional vision, has mu ltiple behavioral issues and concern regarding depression for which he is being treated. While the nursing staff is aware of the potential need for stress corticosteroid coverage he has not needed this as he has not had any significant illness since his transfer to the [facility]. I will review Miguel Angel's progress with [...] and vitamin D intake. He should target [id number] mg of elemental calcium and 400 to 800 international units of vitamin D per day. This should be reviewed with his injection molding machine setter at [facility]. I will adjust his DDAVP and levothyroxine if needed based on today's results. I will see Miguel Angel againin clinic in six months whether he is still at [facility] or has found a suitable foster home in [place]. Thank you for allowing me to participate in the care of this patient. If you have any further questions or concerns, please do not hesitate to contact me. ADDENDUM: free T4 1.4, sodium 134. No change. Thyroid function neded only be rechecked in 6 months unless any clinical change.. Sincerely, Signed by Skyler Edwards MD 08/16/2005 14:06 Lincoln Edwards, [facility] [id number] James Zimakas, MD Skyler Edwards MD Division of Pediatric Endocrinology [phone] - Skyler Edwards MD P - O1 Job ID: [id number] Document ID: [id number] cc: MD Kris Mccauley MD * [facility]* documented in this encounter Plan of Treatment Upcoming Encounters Date Type Department Care Team (Late st Contact Info) Description 10/01/2024 13:40 EDT Office Visit [facility] Endocrinology - [address] [address] Wilder Zaidi, DO [address] [phone] documented as of this encounter Visit Diagnoses Not on filedocumented in this encounter Care Teams Adhesive Sprayer Relationship Specialty Start Date End Date Yan Demarco MD [address] [place] [address] PCP - General 08/22/09 02/20/10 Corin Skinner MD [address] [place] [phone] PCP - General 10/24/08 08/21/09 documented as of this encounter
--- OUTSIDE RECORDS SUMMARY | 2024-07-30 03:03 | XMS_ITS | Encounter Summary ---
Author Organization [facility] Address [address] [place] [address] Care Team Providers Care Retail Service Lead Merchandiser Name Role Phone Corin Skinner MD Primary Care Provider Encounter Details Date Type Department Care Team (Late st Contact Info) Description 08/13/2006 Before PRISM Converted Visit (Maple) [facility] - Maple conversion [address] [place] [address] Skyler Edwards [facility] [address] [place] [phone] Social History Tobacco Use Types Packs/Day Years Used Date Smoking Tobacco: Never Assessed Sex and Gender Information Value Date Recorded Sex Assigned at Not on file Legal Sex Male 18:35 EST Gender Identity Not on file Sexual Orientation Not on file documented as of this encounter Progress Notes * Skyler Edwards MD - 07/13/2009 0325 EST PROGRESS/FOLLOWUP NOTE - 08/13/2006 Kris Drew MD [address] [place] [address] [place] [address] 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 His foster mother, Krissy Wilson, and supervisor garment manufacturing, Edel Jones, accompanied him to the visit. Miguel Angel is now 16 years and2 months old. Miguel Angel was discharged from [facility] in June 2006, and has been in this foster home since that time. While father reportedly still wants to take careof Miguel Angel, his house will need modifications in order to accommodate Miguel Angel's wheelchair. In the interim, he is with his new foster family indefinitely. Miguel Angel is attending [employer] for twohours per day. He receives [...] reportedly been stable since his discharge from [facility]. While she does not measure urine input [...] medications. I did receive a call from [facility] in April 2006, at which time there [...] exam. I have requested a repeat free S1mdmbo with his next blood draw. He will [...] Skyler Edwards MD 08/28/2006 13:32 Lincoln Edwards, [facility] [id number] James Zimakas, MD Skyler Edwards MD Division of Pediatric Endocrinology [phone] - Von Edwards MD P - O1 Job ID: [id number] Document ID: [id number] cc: Kris Drew MD documented in this encounter Plan of Treatment Upcoming Encounters Date Type Department Care Team (Late st Contact Info) Description 10/01/2024 13:40 EDT Office Visit [facility] Endocrinology - [facility] [address] [place] [address] Wilder Zaidi, DO 62 [facility] [address] [place] [address] documented as of this encounter Visit Diagnoses Not on filedocumented in this encounter Care Teams Retail Service Lead Merchandiser Relationship Specialty Start Date End Date Corin Skinner MD [address] [place] [phone] PCP - General 10/24/08 08/21/09 documented as of this encounter
--- OUTSIDE RECORDS SUMMARY | 2024-07-30 03:03 | XMS_ITS | Encounter Summary ---
Author Organization [facility] Address [address] [place] [address] Care Team Providers Care Safety Representative Name Role Phone Yan Demarco MD Primary Care Provider [phone] Corin Skinner MD Primary Care Provider Akil Serrano MD Primary Care Provider [phone] Encounter Details Date Type Department Care Team (Late st Contact Info) Description 11/27/2007 Results Only [facility] - Maple conversion [address] [place], [place] [phone] Emergency, MD Diya Social History Tobacco Use [...] Visit [facility] Endocrinology - [facility] [address] [place], [place] [id number] Wilder Zaidi, 62 [facility] [address] [place] [address] documented as of this encounter [...] ORDER LYNDSEY Final Result Performing Organization Address [facility] Co de Phone Number [facility] [address] [place] [address] * (ABNORMAL) ELECTROLYTES (11/27/2007 18:20 EDT) Sodium [...] ORDER LYNDSEY Final Result Performing Organization Address City/[facility]/ZIP Co de Phone Number [facility] [address] [place] [address] * T4 FREE (11/27/2007 18:20 EDT) [facility] Free T4 0.9 0.8 - 1.5 ng/dL [facility] 11/27/2007 18:2 0 EDT 11/27/2007 18:51 EDT Default Emergency MD CHEMISTRY & BLOOD GAS ORDER LYNDSEY Final Result Performing Organization Address City/[facility]/ZIP Co de Phone Number [facility] [address] [place] [address] * CREATININE (11/27/2007 18:20 EDT) [facility] Creatinine 0.60 0.6 - 1.2 mg/dl [facility] GFR, Calculated Age <18 ml/min/1.7 3m2 [facility] 11/27/2007 18:2 0 EDT 11/27/2007 18:51 EDT us Default Emergency MD CHEMISTRY & BLOOD GAS ORDER LYNDSEY Final Result Performing Organization Address City/[facility] Co de Phone Number [facility] [address] [place] [address] * (ABNORMAL) HEMAGRAM AND DIFFERENTIAL (11/27/2007 18:20 EDT) [facility] WBC 4.74 4.6 - 11.2 K/cmm [facility] [...] ORDERA BLES Final Result Performing Organization Address City/[facility]/ZIP Co de Phone Number [facility] [address] [place] [address] * BUN (11/27/2007 18:20 EDT) BUN 9 8 - 21 mg/dl [facility] 11/27/2007 18:2 0 EDT 11/27/2007 18:51 EDT us Default Emergency MD CHEMISTRY & BLOOD GAS ORDER LYNDSEY Final Result Performing Organization Address [facility]/ZIP Co de Phone Number [facility] [address] [place] [address] * TESTS ADDED BY PHONE (11/27/2007 18:20 EDT) Tests to be added STAT SGL [facility] Who Called [facility] Location Code Emergency Department [facility] 11/27/2007 18:2 0 EDT 11/27/2007 18:51 EDT us Default Emergency MD CHEMISTRY & BLOOD GAS ORDER LYNDSEY Final Result Performing Organization Address [facility] Co de Phone Number [facility] [address] [place] [address] * TESTS ADDED BY PHONE (11/27/2007 18:20 EDT) Tests to be added FT4 [facility] Who Called [facility] Location Code Emergency Department [facility] 11/27/2007 18:2 0 EDT 11/27/2007 18:51 EDT us Default Emergency CHEMISTRY & BLOOD GAS ORDER LYNDSEY Final Result [facility] [address] [place] [address] documented in this encounter Visit Diagnoses Not on filedocumented in this encounter Care Teams Safety Representative Relationship Specialty Start Date End Date Yan Demarco MD [address] [place] [address] PCP - General 08/22/09 02/20/10 Corin Skinner MD [address] [place] [phone] PCP - General 10/24/08 08/21/09 kAil Serrano MD [address] [place] [address],[facility] [address] [place] [address] PCP - General 02/21/10 04/16/11 documented as of this encounter
--- OUTSIDE RECORDS SUMMARY | 2024-07-30 03:03 | XMS_ITS | Encounter Summary ---
Author Organization [facility] Address [address] [place] [address] Care Team Providers Care Sanitation Superintendent Name Role Phone Unavailable Primary Care Provider Unavailabl e Encounter Details Date Type Department Care Team (Latest Contact Info) Description 05/15/2007 6:45 EST - 05/15/2007 11:59 EST Hospital Encounter [facility] Perioperative Services- [facility] [address] [place], [place] [address] Marvin Perez MD [address] [place] [phone] Discharge Disposition: Home or Self Care Social [...] Office Visit [facility] Endocrinology - [facility] [address] [place] [address] Wilder Zaidi, 62 [facility] [address] [place] [address] documented as of this encounter [...]
--- OUTSIDE RECORDS SUMMARY | 2024-07-30 03:03 | XMS_ITS | Encounter Summary ---
Author Organization [facility] Address [address] [place] [address] Care Team Providers Care Pharmacy Informaticist Name Role Phone Unavailable Primary Care Provider Unavailabl e Encounter Details Date Type Department Care Team (Late st Contact Info) Description 11/28/2007 8:34 EDT - 11/28/2007 11:59 EDT Hospital Encounter [facility] [address] [place] [address] Desean Huerta MD [address] [facility]. [address] [place] [phone] Discharge Disposition: Auto Discharge Social History Tobacco [...] Office Visit [facility] Endocrinology - [facility] [address] [place] [address] Wilder Zaidi, [address] [facility] [address] [place] [phone] documented as of this encounter Procedures Procedure [...] BLES Final Result [facility] [address] [place] [address] * (ABNORMAL) TSH (04/11/2008 8:55 EDT) TSH <0.02(L) 0.35 - 5.00 uIU/mL [facility] 04/11/2008 8:55 EDT 04/11/2008 9:09 EDT us Default Emergency MD CHEMISTRY & BLOOD GAS ORDER LYNDSEY Final Result Performing Organization Address [facility] Co de Phone Number [facility] [address] [place] [address] * (ABNORMAL) T4 FREE (04/11/2008 8:55 EDT) Free T4 1.7(H) 0.8 - 1.5 ng/dL [facility] 04/11/2008 8:55 EDT 04/11/2008 9:09 EDT us Default Emergency CHEMISTRY & BLOOD GAS ORDER LYNDSEY Final Result Performing Organization Address [facility] Co de Phone Number [facility] [address] [place] [address] * GLUCOSE, SERUM (04/11/2008 8:55 EDT) Glucose, Serum 79 70 - 100 mg/dl [facility] 04/11/2008 8:55 EDT 04/11/2008 9:09 EDT us Default Emergency CHEMISTRY & BLOOD GAS ORDER LYNDSEY Final Result Performing Organization Address [facility]/ZIP Co de Phone Number [facility] [address] [place] [address] * CREATININE (04/11/2008 8:55 EDT) Creatinine 0.60 0.6 - 1.2 mg/dl [facility] GFR, Calculated Age <18 ml/min/1.7 3m2 [facility] 04/11/2008 8:55 EDT 04/11/2008 9:09 EDT us Default Emergency MD CHEMISTRY & BLOOD GAS ORDER LYNDSEY Final Result Performing Organization Address [facility] de Phone Number [facility] [address] [place] [address] * BUN (04/11/2008 8:55 EDT) BUN 14 8 - 21 mg/dl [facility] 04/11/2008 8:55 EDT 04/11/2008 9:09 EDT us Default Emergency MD CHEMISTRY & BLOOD GAS ORDER LYNDSEY Final Result Performing Organization Address [facility] de Phone Number [facility] [address] [place] [address] * (ABNORMAL) ELECTROLYTES (04/11/2008 8:55 EDT) Sodium 131(L) 136 - 145 mEq/L [facility] Potassium 4.4 3.5 - 5.0 mEq/L [facility] Chloride 95(L) 96 - 110 mEq/L [facility] CO2 25 24 - 32 mEq/L [facility] 04/11/2008 8:55 EDT 04/11/2008 9:09 EDT us Default Emergency MD CHEMISTRY & BLOOD GAS ORDER LYNDSEY Final Result Performing Organization Address [facility] de Phone Number [facility] [address] [place] [address] * PORTABLE CHEST 1 VIEW (02/12/2008 14:29 [...] 70 - 100 mg/dl [facility] [place] [id number] Test Performed by Nursing Services [facility] 02/08/2008 23:3 8 EDT 02/09/2008 6:19 EDT us Provider Olga PANG CHEMISTRY & BLOOD GAS ORDERA BLES Final Result [facility] [address] [place] [address] * PHOSPHORUS (02/08/2008 22:45 EDT) Phosphorus 4.0 2.7 - 4.7 mg/dl [facility] 02/08/2008 22:4 5 EDT 02/08/2008 22:58 EDT us Default Emergency MD CHEMISTRY & BLOOD GAS ORDER LYNDSEY Final Result Performing Organization Address [facility] Co de Phone Number [facility] [address] [place] [address] * (ABNORMAL) MAGNESIUM (02/08/2008 22:45 EDT) Magnesium 1.4(L) 1.7 - 2.8 mg/dl [facility] 02/08/2008 22:4 5 EDT 02/08/2008 22:58 EDT us Default Emergency MD CHEMISTRY & BLOOD GAS ORDER LYNDSEY Final Result Performing Organization Address [facility] de Phone Number [facility] [address] [place] [address] * CALCIUM (02/08/2008 22:45 EDT) Calcium 8.6 8.5 - 10.5 mg/dl [facility] Calculated Calcium 9.3 8.5 - 10.5 mg/dl [facility] 02/08/2008 22:4 5 EDT 02/08/2008 22:58 EDT Default Emergency MD CHEMISTRY & BLOOD GAS ORDER LYNDSEY Final Result Performing Organization Address [facility] de Phone Number [facility] [address] [place] [address] * CORTISOL (02/08/2008 22:45 EDT) Cortisol 9 ug/dl [facility] Comment: 7-9a.m.=4.3-22.4 3-5p.m.=3.1-16.7 02/08/2008 22:4 5 EDT 02/08/2008 22:58 EDT us Default Emergency MD CHEMISTRY & BLOOD GAS ORDER LYNDSEY Final Result Performing Organization Address [facility] Co de Phone Number [facility] [address] [place] [address] * GLUCOSE, SERUM (02/08/2008 22:45 EDT) Pathologist [facility] Glucose, Serum 87 70 - 100 mg/dl [facility] 02/08/2008 22:4 5 EDT 02/08/2008 22:58 EDT us Default Emergency MD CHEMISTRY & BLOOD GAS ORDER LYNDSEY Final Result Performing Organization Address [facility] de Phone Number [facility] [address] [place] [address] * (ABNORMAL) BUN (02/08/2008 22:45 EDT) Pathologist [facility] BUN 6(L) 8 - 21 mg/dl [facility] 02/08/2008 22:4 5 EDT 02/08/2008 22:58 EDT Default Emergency MD CHEMISTRY & BLOOD GAS ORDER LYNDSEY Final Result Performing Organization Address [facility] de Phone Number [facility] [address] [place] [address] * (ABNORMAL) ELECTROLYTES (02/08/2008 22:45 EDT) Pathologist [facility] Sodium 117(LL) 136 - 145 mEq/L [facility] Comment:Sample retested, res ult confirmed Potassium 3.8 3.5 - 5.0 mEq/L [facility] Chloride 81(L) 96 - 110 mEq/L [facility] CO2 25 24 - 32 mEq/L [facility] 02/08/2008 22:4 5 EDT 02/08/2008 22:58 EDT us Default Emergency MD CHEMISTRY & BLOOD GAS ORDER LYNDSEY Final Result Performing Organization Address [facility] de Phone Number [facility] [address] [place] [address] * (ABNORMAL) CREATININE (02/08/2008 22:45 EDT) Pathologist [facility] Creatinine 0.40(L) 0.6 - 1.2 mg/dl [facility] GFR, Calculated Age <18 ml/min/1.7 3m2 [facility] 02/08/2008 22:4 5 EDT 02/08/2008 22:58 EDT Default Emergency MD CHEMISTRY & BLOOD GAS ORDER LYNDSEY Final Result Performing Organization Address [facility] de Phone Number [facility] [address] [place] [address] * PHENYTOIN (02/08/2008 22:45 EDT) Pathologist [facility] Phenytoin 12.9 ug/ml [facility] Calculated Phenytoin 13.4 ug/ml [facility] Comment: Calculated phenytoin is adjusted for albumin level. 02/08/2008 22:4 5 EDT 02/08/2008 22:58 EDT Default Emergency MD CHEMISTRY & BLOOD GAS ORDER LYNDSEY Final Result Performing Organization Address [facility] de Phone Number [facility] [address] [place] [address] * (ABNORMAL) HEMAGRAM AND DIFFERENTIAL (02/08/2008 22:45 EDT) [facility] WBC 3.05(L) 4.6 - 11.2 K/cmm [facility] [...] % [facility] Lymphocytes 27.5 % [facility] Monocytes 8.7 % [facility] Eosinophils 0.7 % [facility] Basophils 0.3 % [facility] ABS Neutrophils 1.91 K/cmm [facility] [place] [...] ORDERA BLES Final Result Performing Organization Address [facility] Co de Phone Number [facility] [address] [place] [address] * (ABNORMAL) GLUCOSE, PLASMA (02/08/2008 17:12 EDT) Glucose, Plasma 64(L) 70 - 100 mg/dl [facility] 02/08/2008 17:1 2 EDT 02/08/2008 17:14 EDT Rui Bazan MD CHEMISTRY & BLOOD GAS ORDERABL ES Final Result Performing Organization Address [facility] de Phone Number [facility] [address] [place] [address] * (ABNORMAL) CREATININE (02/08/2008 17:12 EDT) Creatinine 0.57(L) 0.6 - 1.2 mg/dl [facility] GFR, Calculated Age <18 ml/min/1.7 3m2 [facility] 02/08/2008 17:1 2 EDT 02/08/2008 17:14 EDT Rui Bazan MD CHEMISTRY & BLOOD GAS ORDERABL ES Final Result Performing Organization Address [facility] Co de Phone Number [facility] [address] [place] [address] * PHENYTOIN (02/08/2008 17:12 EDT) Phenytoin 11.3 ug/ml [facility] Calculated Phenytoin 9.9 ug/ml [facility] Comment: Calculated phenytoin is adjusted for albumin level. 02/08/2008 17:1 2 EDT 02/08/2008 17:14 EDT Rui Bazan MD CHEMISTRY & BLOOD GAS ORDERABL ES Final Result Performing Organization Address [facility] de Phone Number [facility] [address] [place] [address] * (ABNORMAL) LIVER FUNCTION TESTS (02/08/2008 17:12 EDT) Albumin 5.2 3.0 - 5.5 g/dl [facility] Total Protein 8.1 6.3 - 8.6 g/dl [facility] Alkaline Phosphatase 135 65 - 260 [...] ES Final Result Performing Organization Address [facility] Co de Phone Number [facility] [address] [place] [address] * (ABNORMAL) ELECTROLYTES (02/08/2008 17:12 EDT) Sodium [...] ES Final Result Performing Organization Address [facility] Co de Phone Number [facility] [address] [place] [address] * (ABNORMAL) HEMAGRAM (02/08/2008 17:12 EDT) WBC [...] ORDERABLES Fi nal Result Performing Organization Address [facility] de Phone Number [facility] [address] [place] [address] * MR HEAD W/WO CONTRAST (11/29/2007 22:06 [...]
--- OUTSIDE RECORDS SUMMARY | 2024-07-30 03:03 | XMS_ITS | Encounter Summary ---
Author Organization [facility] Address [address] [place] [address] Care Team Providers Care Car Body Mechanic Name Role Phone Unavailable Primary Care Provider Unavailabl e Encounter Details Date Type Department Care Team (Late st Contact Info) Description 08/19/2007 9:10 EST Hospital Encounter [facility] [address] [place] [address] [facility] [address] [place] [phone] Social History Tobacco Use Types Packs/Day Years [...] Info) Description 10/01/2024 13:40 EDT Office Visit [facility] Endocrinology - [facility] [address] [place] [address] Wilder Zaidi, DO [address] [facility] [address] [place] [address] documented as of this encounter Visit Diagnoses Not on filedocumented in this encounter
--- OUTSIDE RECORDS SUMMARY | 2024-07-30 03:03 | XMS_ITS | Encounter Summary ---
Author Organization [facility] Address [address] [place] [address] Care Team Providers Care Beam Sealer Name Role Phone Yan Demarco MD Primary Care Provider [phone] Corin Skinner MD Primary Care Provider [phone] Akil Serrano MD Primary Care Provider [phone] Yossi Torres MD Primary Care Provider [phone] Emilee Cody MD Primary Care Provider + Ren Vaz MD Primary Care Provider [phone] Encounter Details Date Type Department Care Team (Late st Contact Info) Description 08/13/2005 Before PRISM Converted Visit ([facility]) [facility] Pediatric Neurology - [facility] [address] [place], [place] [address] Hilton Álvarez MD [address] [place] [phone] Social History Tobacco Use Types Packs/Day Years Used Date Smoking Tobacco: Never Assessed Sex and Gender Information Value Date Recorded Sex Assigned at Not on file Legal Sex Male 18:35 EST Gender Identity Not on file Sexual Orientation Not on file documented as of this encounter Progress Notes * Ricki, Conv Vacuum Repairer - 09/06/20092034 EST DIVISION OF NEUROSURGERY PROGRESS/FOLLOWUP NOTE August 13, 2005 Kris Drew MD [address] [place] [address] [place] [address] Drew: I had the pleasure of following up Miguel Angel Burgos in the pediatric neurosurgery clinic today with hismother, the social work supervisor from your institution, and two of his care attendants at [facility]. Since I saw Miguel Angel last, [...] Hilton Álvarez MD 08/20/2005 13:44 Carolina Tang ProfessorSt Johnsbury HospitalDivision of Neurological SurgeryHilton Álvarez MD Hilton Álvarez MD Network Applications Specialist [facility] Division of Neurological Surgery - Hilton Álvarez MD P - bb Job ID: [id number] Document ID: [id number] cc: Kris Drew MD documented in this encounter Plan of Treatment Upcoming Encounters Date Type Department Care Team (Late st Contact Info) Description 10/01/2024 13:40 EDT Office Visit [facility] Endocrinology - [place] [address] [place] [address] Wilder Zaidi, DO [address] [place] [address] documented as of this encounter Procedures Procedure Name Priority Date/Time Associated Diagnosis Comments MR HEAD W/WO CONTRAST 08/13/2005 13:23 EST documented in this encounter Results * MR HEAD W/WO CONTRAST (08/13/2005 13:23 EST) Anatomical Region Laterality Modality Other 08/13/2005 13:2 3 EST Narrative 02/03/2009 5:03 EDT PATIENT NEEDS TO BE SENT TO [facility] FOR ANESTHESIA HEADACHES, S/P CRANIOPHOYRGRAM [...] 02/03/2009 PATIENT NEEDS TO BE SENT TO [facility] FOR ANESTHESIA HEADACHES, S/P CRANIOPHOYRGRAM [...] on filedocumented in this encounter Care Teams Beam Sealer Relationship Specialty Start Date End Date Yan Demarco MD [address] [place] [address] PCP - General 08/22/09 02/20/10 Corin Skinner MD [address] [place] [phone] PCP - General 10/24/08 08/21/09 Akil Serrano MD [address] [place] [phone] PCP - General 02/21/10 04/16/11 Yossi Torres MD [address] [place] [phone] PCP - General 04/17/11 03/14/16 Emilee Cody MD [address] [place] [address] PCP - General 03/15/16 09/29/18 Ren Vaz MD [address] [place] [address] [place] [address] PCP - General 09/30/18 documented as of this encounter
--- OUTSIDE RECORDS SUMMARY | 2024-07-30 03:03 | XMS_ITS | Encounter Summary ---
Author Organization [facility] Address [address] [place] [address] Care Team Providers Care Leasing Director Name Role Phone Yan Demarco MD Primary Care Provider [phone] Corin Skinner MD Primary Care Provider [phone] Encounter Details Date Type Department Care Team (Late st Contact Info) Description 02/08/2008 Office Visit [facility] - [facility] conversion [address] [place] [address] Yossi Murphy MD [address] [facility], [address] [place] [address] Social History Tobacco Use Types [...] At pt's family's request, PICU attending at [facility] notified. PICU attending agreed with plan [...] endocrine), peds resident, PICU attending physician at [facility]. Reviewed test results. Agreed upon treatment [...] qd, calcium, vitamin d, niacin 1000mg tid, [id number] hs, hydrocortisone 5mg -2tabs am, 1 tab [...] --2237 Bryant Baker R.N.. NURSING PROGRESS NOTES (professional driver at bedside.). --2236 Bryant Baker R.N. [...] Manuel Bejarano R.N.. IV / I&O Flowsheet [id number] late entry -. IV Site #1. IV access: left hand. IV started in ED with 20g angiocath using aseptic technique; one attempt. Saline lock placed; (iv started and blood drawn by professional driver.). --0033 Bryant Baker R.N. IV Site #1. IV fluids started. IV bag #1; 300 mL bolus 3% NaClat 100 mL/hr. --022 Manuel Bejarano R.N.. DISPOSITION / DISCHARGE (Transported to on fireman helper by this RN and turned over to care of M3 nursing staff.). --[id number] Manuel Bejarano R.N.. Clara Chung R.N., R.N. Locked/Released at 02/09/2008 7:29 by Manuel Bejarano R.N. documented in this encounter Plan of Treatment Upcoming Encounters Date Type Department Care Team (Late st Contact Info) Description 10/01/2024 13:40 EDT Office Visit [facility] Endocrinology - [facility] [address] [place] [address] Wilder Zaidi, [address] [facility] [address] [place] [address] documented as of this encounter Visit Diagnoses Not on filedocumented in this encounter Care Teams Leasing Director Relationship Specialty Start Date End Date Yan Demarco MD [address] [place] [address] PCP - General 08/22/09 02/20/10 Corin Skinner MD [address] [place] [phone] PCP - General 10/24/08 08/21/09 documented as of this encounter
--- OUTSIDE RECORDS SUMMARY | 2024-07-30 03:03 | XMS_ITS | Encounter Summary ---
Author Organization [facility] Address [address] [place] [address] Care Team Providers Care Echocardiograph Tech Name Role Phone Unavailable Primary Care Provider Unavailabl e Encounter Details Date Type Department Care Team (Late st Contact Info) Description 11/27/2007 19:42 EDT - 11/30/2007 11:59 EDT Hospital Encounter [facility] Pediatric Unit [address], [place] [address] Florida Enriquez MD MSc [address] [place] [address] Neo Benitez MD [address] [place] [phone] Discharge Disposition: Home or Self Care [...] Jose Lopez MD,PHD ABPN Certified in Neurology [place]an Board Clinical Neurophysiology - Jose Lopez MD,PHD P - LBR Job ID: [id number] Document ID: [id number] cc: Yossi Garcia MD,PhD Jose Lopez MD,PHD P - lbr Job ID: [id number] Document ID: [id number] cc: Yossi Garcia MD,PhD documented in this [...] and neurological impairment. He was admitted to [facility] on November 27, 2007, from an outside hospital with mental status changes and hyponatremia, which has since been corrected. Following his surgery, he has been left with cognitive deficits and has spent considerable time in rehabilitation and is followed by Dr. Feliciano at [place] for behavioral problems. After talking with his [...] alternate taking care of him. He attends [employer] in [place], [place]. His biological mother two years ago [...] morning to get prepared to go to [employer], his school for the day, and so [...] limited due to his cognitivedeficits. 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 [place] II: Deferred. [place] III: Panhypopituitarism status post craniopharyngioma resection, diabetes [...] Harris MD A - SS Job ID: [id number] Document ID: [id number] cc: MD Yan Cleveland MD Alisson L Richards, MD Jillian Sullivan, MD Jillian Sullivan, MD documented in this encounter Plan of Treatment Upcoming Encounters Date Type Department Care Team (Late st Contact Info) Description 10/01/2024 13:40 EDT Office Visit [facility] Endocrinology - [address] [address] Wilder Zaidi, DO [address] [place] [address] [address] [place] [address] documented as of this encounter [...] Performing Organization Address [facility] de Phone Number [facility] [address] [place] [address] * GLUCOSE, GLUCOMETER (11/30/2007 6:14 EDT) Glucose, Fingerstick 70 70 - 100 mg/dl [facility] Truck Technician ID [id number] Test Performed by Nursing Services [facility] 11/30/2007 6:14 EDT 11/30/2007 23:34 EDT Florida Enriquez MD MSc CHEMISTRY & BLOOD GAS ORDERABLES Final Result Performing Organization Address City/[facility] Co de Phone Number [facility] [address] [place] [address] * SODIUM (11/30/2007 6:00 EDT) Sodium 139 136 - 145 mEq/L [facility] 11/30/2007 6:00 EDT 11/30/2007 7:15 EDT us Florida Enriquez MD MSc CHEMISTRY & BLOOD GAS ORDERABLES Final Result Performing Organization Address [facility] Co de Phone Number [facility] [address] [place] [address] * GLUCOSE, SERUM (11/29/2007 18:00 EDT) Glucose, Serum 78 70 - 100 mg/dl [facility] 11/29/2007 18:0 0 EDT 11/29/2007 19:03 EDT us Florida Enriquez MD MSc CHEMISTRY & BLOOD GAS ORDERABLES Final Result Performing Organization Address [facility] de Phone Number [facility] [address] [place] [address] * SODIUM (11/29/2007 18:00 EDT) Sodium 139 136 - 145 mEq/L [facility] 11/29/2007 18:0 0 EDT 11/29/2007 19:03 EDT Florida Enriquez MD MSc CHEMISTRY & BLOOD GAS ORDERABLES Final Result Performing Organization Address [facility] de Phone Number [facility] [address] [place] [address] * GLUCOSE, SERUM (11/29/2007 8:36 EDT) Glucose, Serum 78 70 - 100 mg/dl [facility] 11/29/2007 8:36 EDT 11/29/2007 8:42 EDT us Florida Enriquez MD MSc CHEMISTRY & BLOOD GAS ORDERABLES Final Result Performing Organization Address [facility] de Phone Number [facility] [address] [place] [address] * SODIUM (11/29/2007 8:36 EDT) Sodium 144 136 - 145 mEq/L [facility] 11/29/2007 8:36 EDT 11/29/2007 8:42 EDT Florida Enriquez MD MSc CHEMISTRY & BLOOD GAS ORDERABLES Final Result Performing Organization Address City/[facility]/ZIP Co de Phone Number [facility] [address] [place] [address] * GLUCOSE, SERUM (11/29/2007 3:22 EDT) Glucose, Serum 87 70 - 100 mg/dl [facility] 11/29/2007 3:22 EDT 11/29/2007 3:27 EDT Florida Enriquez MD MSc CHEMISTRY & BLOOD GAS ORDERABLES Final Result Performing Organization Address [facility] Co de Phone Number [facility] [address] [place] [address] * SODIUM (11/29/2007 3:22 EDT) Sodium 141 136 - 145 mEq/L [facility] 11/29/2007 3:22 EDT 11/29/2007 3:27 EDT Florida Enriquez MD MSc CHEMISTRY & BLOOD GAS ORDERABLES Final Result Performing Organization Address [facility] Co de Phone Number [facility] [address] [place] [address] * (ABNORMAL) GLUCOSE, SERUM (11/29/2007 0:23 EDT) Glucose, Serum 101(H) 70 - 100 mg/dl [facility] 11/29/2007 0:23 EDT 11/29/2007 0:23 EDT Florida Enriquez MD MSc CHEMISTRY & BLOOD GAS ORDERABLES Final Result Performing Organization Address [facility] de Phone Number [facility] [address] [place] [address] * SODIUM (11/29/2007 0:23 EDT) Sodium 142 136 - 145 mEq/L [facility] 11/29/2007 0:23 EDT 11/29/2007 0:23 EDT Florida Enriquez MD MSc CHEMISTRY & BLOOD GAS ORDERABLES Final Result Performing Organization Address [facility] Co de Phone Number [facility] [address] [place] [address] * SODIUM (11/28/2007 16:00 EDT) Sodium 143 136 - 145 mEq/L [facility] 11/28/2007 16:0 0 EDT 11/28/2007 21:30 EDT Florida Enriquez MD MSc CHEMISTRY & BLOOD GAS ORDERABLES Final Result Performing Organization Address [facility] Phone Number [facility] [address] [place] [address] * GLUCOSE, SERUM (11/28/2007 12:00 EDT) Glucose, Serum 73 70 - 100 mg/dl [facility] 11/28/2007 12:0 0 EDT 11/28/2007 12:12 EDT Florida Enriquez MD MSc CHEMISTRY & BLOOD GAS ORDERABLES Final Result Performing Organization Address [facility] Phone Number [facility] [address] [place] [address] * PHOSPHORUS (11/28/2007 12:00 EDT) Phosphorus 4.6 2.7 - 4.7 mg/dl [facility] 11/28/2007 12:0 0 EDT 11/28/2007 12:12 EDT Florida Enriquez MD MSc CHEMISTRY & BLOOD GAS ORDERABLES Final Result Performing Organization Address [facility] de Phone Number [facility] [address] [place] [address] * MAGNESIUM (11/28/2007 12:00 EDT) Magnesium 1.9 1.7 - 2.8 mg/dl [facility] 11/28/2007 12:0 0 EDT 11/28/2007 12:12 EDT Florida Enriquez MD MSc CHEMISTRY & BLOOD GAS ORDERABLES Final Result Performing Organization Address [facility] de Phone Number [facility] [address] [place] [address] * ELECTROLYTES (11/28/2007 12:00 EDT) Pathologist [facility] Sodium 137 136 - 145 mEq/L [facility] Potassium 4.2 3.5 - 5.0 mEq/L [facility] Chloride 99 96 - 110 mEq/L [facility] CO2 26 24 - 32 mEq/L [facility] 11/28/2007 12:0 0 EDT 11/28/2007 12:12 EDT Florida Enriquez MD MSc CHEMISTRY & BLOOD GAS ORDERABLES Final Result Performing Organization Address [facility] de Phone Number [facility] [address] [place] [address] * (ABNORMAL) HEMAGRAM AND DIFFERENTIAL (11/28/2007 12:00 EDT) Pathologist [facility] WBC 3.60(L) 4.6 - 11.2 K/cmm [facility] [...] BE ORDERABLES Final Result Performing Organization Address [facility] Co de Phone Number [facility] [address] [place] [address] * CALCIUM (11/28/2007 12:00 EDT) Calcium 9.4 8.5 - 10.5 mg/dl [facility] Calculated Calcium 9.1 8.5 - 10.5 mg/dl [facility] 11/28/2007 12:0 0 EDT 11/28/2007 12:12 EDT Florida Enriquez MD MSc CHEMISTRY & BLOOD GAS ORDERABLES Final Result Performing Organization Address [facility] de Phone Number [facility] [address] [place] [address] * TESTS ADDED BY PHONE (11/28/2007 12:00 EDT) Tests to be added NA [facility] Who Called [facility] FOR DR. SHAKIR [facility] Location Code B5 [facility] 11/28/2007 12:0 0 EDT 11/28/2007 12:12 EDT Florida Enriquez MD MSc CHEMISTRY & BLOOD GAS ORDERABLES Final Result Performing Organization Address [facility] de Phone Number [facility] [address] [place] [address] * SODIUM (11/28/2007 8:15 EDT) Sodium 138 136 - 145 mEq/L [facility] 11/28/2007 8:15 EDT 11/28/2007 8:52 EDT us Florida Enriquez MD MSc CHEMISTRY & BLOOD GAS ORDERABLES Final Result Performing Organization Address [facility] Phone Number [facility] [address] [place] [address] * GLUCOSE, SERUM (11/28/2007 4:15 EDT) Glucose, Serum 79 70 - 100 mg/dl [facility] 11/28/2007 4:15 EDT 11/28/2007 4:22 EDT Florida Enriquez MD MSc CHEMISTRY & BLOOD GAS ORDERABLES Final Result Performing Organization Address [facility] Phone Number [facility] [address] [place] [address] * (ABNORMAL) SODIUM (11/28/2007 4:15 EDT) Sodium 135(L) 136 - 145 mEq/L [facility] 11/28/2007 4:15 EDT 11/28/2007 4:22 EDT us Florida Enriquez MD MSc CHEMISTRY & BLOOD GAS ORDERABLES Final Result Performing Organization Address [facility] Phone Number [facility] [address] [place] [address] * CT HEAD WO CONTRAST (11/28/2007 2:42 [...] Performing Organization Address [facility] de Phone Number [facility] [address] [place] [address] * GLUCOSE, GLUCOMETER (11/27/2007 23:47 EDT) Glucose, Fingerstick 80 70 - 100 mg/dl [facility] Truck Technician ID [id number] Test Performed by Nursing Services [facility] 11/27/2007 23:4 7 EDT 11/27/2007 23:48 EDT Florida Enriquez MD, MSc CHEMISTRY & BLOOD GAS ORDERABLES Final Result Performing Organization Address [facility] de Phone Number [facility] [address] [place] [address] * (ABNORMAL) GLUCOSE, GLUCOMETER (11/27/2007 18:32 EDT) Glucose, Fingerstick 52(L) 70 - 100 mg/dl [facility] Truck Technician ID [id number] Test Performed by Nursing Services [facility] 11/27/2007 18:3 2 EDT 11/27/2007 23:48 EDT Florida Enriquez MD MSc CHEMISTRY & BLOOD GAS ORDERABLES Final Result Performing Organization Address [facility] de Phone Number [facility] [address] [place] [address] documented in this encounter Visit Diagnoses Not on filedocumented in this encounter
--- OUTSIDE RECORDS SUMMARY | 2024-07-30 03:03 | XMS_ITS | Encounter Summary ---
Author Organization [facility] Address [address] [place] [address] Care Team Providers Care V/Stol Landing Signal Officer Name Role Phone Corin Skinner MD Primary Care Provider [phone] Encounter Details Date Type Department Care Team (Late st Contact Info) Description 02/06/2006 Before PRISM Converted Visit (Maple) [facility] - Maple conversion [address] [place] [address] Skyler Edwards [facility] [address] [place] [phone] Social History Tobacco Use Types Packs/Day Years [...] 02/06/2006 February 06, 2006 Kris Drew MD [address] [place] [address] 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 Members of his nursing team, his rental boats caretaker, and his father accompanied him to the [...] take Miguel Angel homewith him to the [place] area. Father lives with his new and several other children. He is in the process of preparing his home for Miguel Angel's return which will likely occur in the next month. Miguel Angel currently remains at the [facility]. Based on review of notes [...] testing when he moves back to the [place] area. His caregivers had questions regarding the [...] Skyler Edwards MD 02/23/2006 22:09 Lincoln Edwards [facility] [id number] James Zimakas, MD Skyler Edwards MD Division of Pediatric Endocrinology [phone] - Skyler Edwards MD A - O2 Job ID: [id number] Document ID: [id number] cc: MD Kris Mccauley MD *Solitario Ramos MD, [facility], [address] [place] [address]* documented in this encounter Plan of Treatment Upcoming Encounters Date Type Department Care Team (Late st Contact Info) Description 10/01/2024 13:40 EDT Office Visit [facility] Endocrinology - [facility] [address] [place], [place] [phone] Wilder Zaidi, 62 [facility] [address] [place] [phone] documented as of this encounter Visit Diagnoses Not on filedocumented in this encounter Care Teams V/Stol Landing Signal Officer Relationship Specialty Start Date End Date Corin Skinner MD [address] [place] [phone] PCP - General 10/24/08 08/21/09 documented as of this encounter
--- OUTSIDE RECORDS SUMMARY | 2024-07-30 03:03 | XMS_ITS | Encounter Summary ---
Author Organization [facility] Address [address] [place] [address] Care Team Providers Care Press Setter Name Role Phone Corin Skinner MD Primary Care Provider [phone] Encounter Details Date Type Department Care Team (Late st Contact Info) Description 08/19/2007 Before PRISM Converted Visit (Maple) [facility] - Maple conversion [address] [place] [address] Skyler Edwards [facility] [address] [place] [phone] Social History Tobacco Use Types Packs/Day Years Used Date Smoking Tobacco: Never Assessed Sex and Gender Information Value Date Recorded Sex Assigned at Not on file Legal Sex Male 18:35 EST Gender Identity Not on file Sexual Orientation Not on file documented as of this encounter Progress Notes * Skyler Edwards MD - 05/17/2009 1424 EST PROGRESS/FOLLOWUP NOTE - Yan Demarco M.D. [facility] [address] [place] [address] Street[address] [place] [address] Demarco: I had the pleasure [...] stepmother, aunt, and [facility]. Miguel Angel is now 17 years and 2 months old. Since our last visit, he has needed stress corticosteroid coverage on two occasions; for an upper respiratory tract infection and one gastrointestinal illness but did not require ER visits for these. There have been several significant changes in Miguel Angel's living situation. Parents have moved to [facility], and so Miguel Angel stays with them only on the weekends and stays with his aunt on weekdays so that he may continue to attend the [employer]. Both aunt and stepmother, who are [...] other significant changes from previous. I contacted [facility] to obtain all of the blood [...] he is receiving locally and through the [facility]. I have recommended that a referral be made to Dr. Drew Larson, our preliminary school psychologist, who has seen Miguel Angel in the [...] may need additional investigations. I will see Miugel Angel again in clinic in six months. Thank you for allowing me to participate in the care of this patient. If you have any further questions or concerns, please do not hesitate to contact me. Sincerely, Signed by Skyler Edwards MD 08/24/2007 16:10 Skyler Edwards MD Division of Pediatric Endocrinology [phone] - Skyler Edwards MD P - YASMINE Job ID: [id number] Doc ID: [id number] cc: MD Yan Mancera MD P - yasmine Job ID: [id number] Doc ID: [id number] cc: MD Yan Mancera MD documented in this encounter Plan of Treatment Upcoming Encounters Date Type Department Care Team (Late st Contact Info) Description 10/01/2024 13:40 EDT Office Visit [facility] Endocrinology - [facility] [address] [place] [address] Wilder Zaidi, 62 [facility] [address] [place] [address] documented as of this encounter Visit Diagnoses Not on filedocumented in this encounter Care Teams Press Setter Relationship Specialty Start Date End Date Corin Skinner MD [address] [place] [phone] PCP - General 10/24/08 08/21/09 documented as of this encounter
--- OUTSIDE RECORDS SUMMARY | 2024-07-30 03:03 | XMS_ITS | Encounter Summary ---
Author Organization [facility] Address [address] [place] [address] Care Team Providers Care Deputy Sheriff Bailiff Name Role Phone Unavailable Primary Care Provider Unavailabl e Encounter Details Date Type Department Care Team (Late st Contact Info) Description 02/06/2006 11:26 EDT Hospital Encounter [facility] [address] [place] [address] [facility] [address] [place] [phone] Social History Tobacco Use Types Packs/Day Years [...] [facility] Endocrinology - [facility] [address] [place] [address] Wilder Zaidi, DO [address] [facility] [address] [place] [address] documented as of this encounter Visit Diagnoses Not on filedocumented in this encounter
--- OUTSIDE RECORDS SUMMARY | 2024-07-30 03:03 | XMS_ITS | Encounter Summary ---
Author Organization [facility] Address [address] [place] [address] Care Team Providers Care Weaving Teacher Name Role Phone Corin Skinner MD Primary Care Provider [phone] Encounter Details Date Type Department Care Team (Late st Contact Info) Description 02/11/2007 Before PRISM Converted Visit (Maple) [facility] - Maple conversion [address] [place] [address] Skyler Edwards [facility] [address] [place] [phone] Social History Tobacco Use Types Packs/Day Years [...] - February 11, 2007 Ren Lynch MD [address], [address] [place] [address] Lynch: I had the pleasure [...] 02/13/2007 14:11 Lincoln Edwards [facility] [phone] James Zimakas, [facility] Von [facility], [facility] of Pediatric [phone] Skyler Edwards MD Division of Pediatric Endocrinology [phone] Pamerrick Edwards MD P - YASMINE Job ID: [id number] Doc ID: [id number] cc: Ren Lynch MD - Skyler Edwards MD P - yasmine Job ID: [id number] Doc ID: [id number] cc: MD Kris Ricks MD documented in this encounter Plan of Treatment Upcoming Encounters Date Type Department Care Team (Late st Contact Info) Description 10/01/2024 13:40 EDT Office Visit [facility] Endocrinology - [facility] [address] [place], [place] [phone] Wilder Zaidi, [address] [phone] documented as of this encounter Visit Diagnoses Not on filedocumented in this encounter Care Teams Weaving Teacher Relationship Specialty Start Date End Date Corin Skinner MD [address] [place] [phone] PCP - General 10/24/08 08/21/09 documented as of this encounter
--- OUTSIDE RECORDS SUMMARY | 2024-07-30 03:03 | XMS_ITS | Encounter Summary ---
Author Organization [facility] Address [address] [place] [address] Care Team Providers Care Mail Processing Equipment Mechanic Name Role Phone Yan Demarco MD Primary Care Provider [phone] Corni Skinner MD Primary Care Provider [phone] Encounter Details Date Type Department Care Team (Late st Contact Info) Description 11/27/2007 Office Visit [facility] - Maple conversion [address] [place] [address] Neo Benitez MD [address] [place] [phone] Social History Tobacco Use Types Packs/Day [...] Addenda for MIGUEL ANGEL BURGOS JR VisitID: [id number] Date: 11/27/2007 11/27/2007 15:41 MARGUERITE ONTIVEROS FROM [...] at 0800 and 1600, colace 1-200mg bid, obabwjoeztze03 mg every 8 hours, niacin 75mg tid, temazepan 30 mg at 1600 daily - last doses given not available on transfer paperwork). --1809 Dinorah Boyd R.N.. History Chief Complaint: (altered mental status). This started today. Roberson-Carter pain scale: 2/10. Treatment BOOKBINDING MACHINE OPERATOR: (see transfer paperwork). SOCIAL HX: Nonsmoker. No alcohol use. 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 pt. has around the clock care. Arrived by EMS. Historian: EMS (school transportation director). --1809 Dinorah Boyd R.N.. PHYSICAL ASSESSMENT Alert. [...] RR: 10. O2 saturation: 99% room air. monitor worker, pulse oximeter and NIBPmonitor placed on patient; monitor alarms on. (pt. parents report pt. with brief episode ofhe was gone states pt. eyes rolled back in his head and it was like he wasn't there deny any kind of motor movement or eye movement - this not witnessed by this magazine writer; pt. is upon assessment at what [...] Blood [facility] (phlebotomy). --0013 Dinorah Boyd [...] Office Visit [facility] Endocrinology - [facility] [address] [place] [address] Wilder Zaidi, 62 [facility] [address] [place] [address] documented as of this encounter Visit Diagnoses Not on filedocumented in this encounter Care Teams Mail Processing Equipment Mechanic Relationship Specialty Start Date End Date Yan Demarco MD [address] [place] [phone] PCP - General 08/22/09 02/20/10 Corin Skinner MD [address] [place] [phone] PCP - General 10/24/08 08/21/09 documented as of this encounter
--- OUTSIDE RECORDS SUMMARY | 2024-07-30 03:03 | XMS_ITS | Encounter Summary ---
Author Organization [facility] Address [address] [place] [address] Care Team Providers Care Qa Auditor Name Role Phone Unavailable Primary Care Provider Unavailabl e Encounter Details Date Type Department Care Team (Late st Contact Info) Description 05/23/2006 7:52 EST - 05/23/2006 11:59 EST Hospital Encounter [facility] Perioperative Services- [facility] [address] [place], [place] [address] Jason Olea MD 111 [facility], Level 5 [place] [address] Marvin Perez MD [address] [place] [phone] Discharge Disposition: Home or Self Care [...] Visit [facility] Endocrinology - [facility] [address] [place], [place] [phone] Wilder Zaidi, 62 [facility] [address] [place] [address] documented as of this encounter Procedures [...] void ??is seen in the intracranial vessels. [id number] D: ??05/24/2006 11:09 T: ??05/26/2006 17:31 Addendum [...] void is seen in the intracranial vessels. [id number] Addendum Begins MRI of the brain was done with and without IV contrast. Addendum Ends Jason Olea MD [facility] MRI ORDERABLES Final Re sult documented in this encounter Visit Diagnoses Not on filedocumented in this encounter
--- OUTSIDE RECORDS SUMMARY | 2024-07-30 03:03 | XMS_ITS | Encounter Summary ---
Author Organization [facility] Address [address] [place] [address] Care Team Providers Care Photoresist Contact Printer Name Role Phone Corin Skinner MD Primary Care Provider [phone] Encounter Details Date Type Department Care Team (Late st Contact Info) Description 02/11/2008 Before PRISM Converted Visit (Maple) [facility] - Maple conversion [address] [place] [address] Jose Lopez MD PhD 111 [facility]. Level 5 [place] [phone] Social History Tobacco Use Types Packs/Day Years [...] Jose Lopez MD,PHD ABPN Certified in Neurology [place] Board Clinical Neurophysiology - Jose Lopez MD,PHD P - LBR Job ID: [id number] Document ID: [id number] cc: MD Yan Walker MD lbr Job ID: [id number] Document ID: [id number] cc: MD Yan Walker MD documented in this encounter Plan of Treatment Upcoming Encounters Date Type Department Care Team (Late st Contact Info) Description 10/01/2024 13:40 EDT Office Visit [facility] Endocrinology - [facility] [address] [place] [address] Wilder Zaidi, DO 62 [facility] [address] [place] [address] documented as of this encounter Visit Diagnoses Not on filedocumented in this encounter Care Teams Photoresist Contact Printer Relationship Specialty Start Date End Date Corin Skinner MD [address] [place] [phone] PCP - General 10/24/08 08/21/09 documented as of this encounter
--- OUTSIDE RECORDS SUMMARY | 2024-07-30 03:03 | XMS_ITS | Encounter Summary ---
Author Organization [facility] Address [address] [place] [address] Care Team Providers Care Telecommunications Manager Name Role Phone Corin Skinner MD Primary Care Provider [phone] Encounter Details Date Type Department Care Team (Late st Contact Info) Description 05/15/2007 Before PRISM Converted Visit (Maple) [facility] - Maple conversion [address] [place] [address] Marvin Perez MD [address] [place] [phone] Social History Tobacco Use Types Packs/Day Years Used Date Smoking Tobacco: Never Assessed Sex and Gender Information Value Date Recorded Sex Assigned at Not on file Legal Sex Male 18:35 EST Gender Identity Not on file Sexual Orientation Not on file documented as of this encounter Progress Notes * Marvin Perez - 05/17/2009 1407 EST DIVISION OF NEUROSURGERY PROGRESS/FOLLOWUP NOTE - 05/15/2007 Kris Drew MD [address] [place] [address] Drew: Miguel Angel Burgos was [...] - Marvin Perez MD - Job ID: [id number] Doc ID: [id number] cc: Kris Drew MD - Job ID: [id number] Doc ID: [id number] cc: Kris Drew MD documented in this encounter Plan of Treatment Upcoming Encounters Date Type Department Care Team (Late st Contact Info) Description 10/01/2024 13:40 EDT Office Visit [facility] Endocrinology - [address] [phone] Wilder Zaidi, [address] [place] [address] documented as of this encounter Visit Diagnoses Not on filedocumented in this encounter Care Teams Telecommunications Manager Relationship Specialty Start Date End Date Corin Skinner MD [address] [place] [phone] PCP - General 10/24/08 08/21/09 documented as of this encounter
--- OUTSIDE RECORDS SUMMARY | 2024-07-30 03:03 | XMS_ITS | Encounter Summary ---
Author Organization [facility] Address [address] [place] [address] Care Team Providers Care Financial Compliance Examiner Name Role Phone Unavailable Primary Care Provider Unavailabl e Encounter Details Date Type Department Care Team (Late st Contact Info) Description 08/13/2006 12:57 EST Hospital Encounter [facility] [address] [place] [address] [facility] [address] [place] [phone] Social History Tobacco Use Types Packs/Day Years [...] [facility] Endocrinology - [facility] [address] [place] [address] Wilder Zaidi, DO 62 [facility] [address] [place] [address] documented as of this encounter Visit Diagnoses Not on filedocumented in this encounter
--- OUTSIDE RECORDS SUMMARY | 2024-07-30 03:03 | XMS_ITS | Encounter Summary ---
Author Organization [facility] Address [address] [place] [address] Care Team Providers Care Salesperson Recreational Vehicles Name Role Phone Unavailable Primary Care Provider Unavailabl e Encounter Details Date Type Department Care Team (Late st Contact Info) Description 08/13/2005 9:56 EST - 08/13/2005 11:59 EST Hospital Encounter [facility] Perioperative Services- [facility] [address] [place], [place] [address] Hilton Álvarez MD [address] [place] [phone] Discharge Disposition: Home or Self Care Social [...] Office Visit [facility] Endocrinology - [facility] [address] [place] [address] Wilder Zaidi, 62 [facility] [address] [place] [address] documented as of this [...] 3 EST 08/13/2005 17:30 EST Skyler Edwards [facility] CHEMISTRY & BL OOD GAS ORDERABLES Final Result [facility] [address] [place] [address] * (ABNORMAL) INSULIN LIKE GROWTH FACTOR I (IGF-1) (08/13/2005 17:03 EST) Insulin-Like GF-1 54Unit: ng/mL(Note) -- EXPECTED VALUES -- ? (Ref Range) 237 to 996 ? Test Performed by: ? [facility] Dpt of Lab Med and Pathology ? [address] [place] [address] ? Child Protective Services Specialist: Hamzah Mcghee M.D. ?(L) [facility] 08/13/2005 17:0 3 EST 08/13/2005 17:30 EST Skyler Edwards [facility] CHEMISTRY & BL OOD GAS ORDERABLES Final Result [facility] [address] [place] [address] * (ABNORMAL) INSULIN-LIKE GROWTH FACTOR BINDING PROTEIN 3 (IGFBP-3), SERUM (08/13/2005 17:03 EST) IGFBP-3 2.6Unit: ug/mL(Note) -- EXPECTED VALUES -- ? (Ref Range) 3.5 to 10 ? [place] Stages ??Males ?I ? 1.2-6.4 ? II ? 2.8-6.9 ? III ?3.9-9.4 ? IV ? 3.3-8.1 ?V ? 2.7-9.1 ? Test Performed by: ? [facility] Dpt of Lab Med and Pathology ? [address] , [place] [address] ? Child Protective Services Specialist: Hamzah Mcghee M.D. ?(L) [facility] 08/13/2005 17:0 3 EST 08/13/2005 17:30 EST Skyler Von Aburto Grace [facility] CHEMISTRY & BL OOD GAS ORDERABLES Final Result Performing Organization Address [facility] de Phone Number [facility] [address] [place] [address] * T4 FREE (08/13/2005 17:03 EST) Free T4 1.4 0.8 - 1.8 ng/dl [facility] 08/13/2005 17:0 3 EST 08/13/2005 17:30 EST Skyelr Edwards [facility] CHEMISTRY & BL OOD GAS ORDERABLES Final Result Performing Organization Address [facility] de Phone Number [facility] [address] [place] [address] * (ABNORMAL) COMPREHENSIVE METABOLIC PANEL (08/13/2005 17:03 EST) Pathologist [facility] Potassium 3.8 3.6 - 5.2 mEq/L [facility] [...] 3 EST 08/13/2005 17:30 EST Skyler Edwards [facility] CHEMISTRY & BL OOD GAS ORDERABLES Final Result [facility] [address] [place] [address] documented in this encounter Visit Diagnoses Not on filedocumented in this encounter
--- OUTSIDE RECORDS SUMMARY | 2024-07-30 03:04 | XMS_ITS | Encounter Summary ---
Author Organization [facility] Address [address] [place] [address] Care Team Providers Care Arch Pad Cementer Name Role Phone Yan Demarco MD Primary Care Provider [phone] Corin Skinner MD Primary Care Provider [phone] Akil Serrano MD Primary Care Provider [phone] Yossi Torres MD Primary Care Provider [phone] Emilee Cody MD Primary Care Provider + Ren Vaz MD Primary Care Provider [phone] Encounter Details Date Type Department Care Team (Late st Contact Info) Description 03/27/2005 Before PRISM Converted Visit (Maple) [facility] Pediatric Neurology - [place] [address] [place], [place] [address] Hilton Álvarez MD [address] [place] [phone] Social History Tobacco Use Types Packs/Day [...] Visit [facility] Endocrinology [address] [place] [address] Wilder Zaidi, DO [address] [place] [address] documented as of this encounter [...] on filedocumented in this encounter Care Teams Arch Pad Cementer Relationship Specialty Start Date End Date Yan Demarco MD [address] [place] [address] PCP - General 08/22/09 02/20/10 Corin Skinner MD [address] [place] [phone] PCP - General 10/24/08 08/21/09 Akil Serrano MD 74 [facility],[address] [address] PCP - General 02/21/10 04/16/11 Yossi Torres MD [address] [place] [phone] PCP - General 04/17/11 03/14/16 Emilee Cody MD [address] [place] [address] PCP - General 03/15/16 09/29/18 Ren Vaz MD [address] [place] [address] PCP - General 09/30/18 documented as of this encounter
--- OUTSIDE RECORDS SUMMARY | 2024-07-30 03:04 | XMS_ITS | Encounter Summary ---
Author Organization [facility] Address [address] [place] [address] Care Team Providers Care Smearer Name Role Phone Yan Demarco MD Primary Care Provider Corin Skinner MD Primary Care Provider Akil Serrano MD Primary Care Provider [phone] Encounter Details Date Type Department Care Team (Late st Contact Info) Description 11/21/2004 Before PRISM Converted Visit (Maple) [facility] - Maple conversion [address] [place], [place] [address] Raleigh Angelo MD [address] [phone] Social History Tobacco Use Types Packs/Day Years [...] HISTORY: The patient lives withhis mother in [place], [place]. His mother has endstage renal disease [...] 11/22/2004 15:57:53 - re Voice ID - [id number] Document ID - [id number] cc: KYLIE TREJO MD, REQUESTING PHYSICIAN ADE [...] 11/22/2004 15:57:53 - re Voice ID - [id number] Document ID - [id number] cc: ADE MALLOY MD, REFERRING PHYSICIAN TOO DIAZ MD, PRIMARY CARE PHYSICIAN KYLIE TREJO MD, REQUESTING PHYSICIAN documented in this encounter Plan of Treatment Upcoming Encounters Date Type Department Care Team (Late st Contact Info) Description 10/01/2024 13:40 EDT Office Visit [facility] Endocrinology - [address] [place] [phone] Wilder Zaidi, [address] [facility] [address] [place] [address] documented as of this encounter Visit Diagnoses Not on filedocumented in this encounter Care Teams Smearer Relationship Specialty Start Date End Date Yan Demarco MD [address] [place] [phone] PCP - General 08/22/09 02/20/10 Corin Skinner MD [address] [place] [phone] PCP - General 10/24/08 08/21/09 Akil Serrano MD [address] [facility] [facility] [address] [place] [address] PCP - General 02/21/10 04/16/11 documented as of this encounter
--- OUTSIDE RECORDS SUMMARY | 2024-07-30 03:04 | XMS_ITS | Encounter Summary ---
Author Organization [facility] Address [address] [place] [address] Care Team Providers Care Gynecological Assistant Name Role Phone Yan Demarco MD Primary Care Provider [phone] Corin Skinner MD Primary Care Provider Akil Serrano MD Primary Care Provider [phone] Encounter Details Date Type Department Care Team (Late st Contact Info) Description 11/23/2004 Before PRISM Converted Visit (Maple) [facility] - Maple conversion [address] [place] [address] Kylie Larson MD [address] [place] [address] Social History Tobacco Use Types [...] - KYLIE LARSON MD /re Voice ID: [id number] Doc ID: [id number] n the next few days. We will continue to keep watch on his electrolyte and fluid status. I will keep in contact with Dr. Edwards as necessary. - KYLIE LARSON MD /re Voice ID: [id number] Doc ID:[id number] documented in this encounter Plan of Treatment Upcoming Encounters Date Type Department Care Team (Late st Contact Info) Description 10/01/2024 13:40 EDT Office Visit [facility] End[facility]ology - [facility] [address] [place] [address] Wilder Zaidi, DO 62 [facility] [address] [place] [address] documented as of this encounter Visit Diagnoses Not on filedocumented in this encounter Care Teams Gynecological Assistant Relationship Specialty Start Date End Date Yan Demarco MD [address] [place] [address] PCP - General 08/22/09 02/20/10 Corin Skinner MD [address] [phone] PCP - General 10/24/08 08/21/09 Akil Serrano MD [address] [place] [address] PCP - General 02/21/10 04/16/11 documented as of this encounter
--- OUTSIDE RECORDS SUMMARY | 2024-07-30 03:04 | XMS_ITS | Encounter Summary ---
Author Organization [facility] Address [address] [place] [address] Care Team Providers Care Rn Oncology Research Name Role Phone Yan Demarco MD Primary Care Provider Corin Skinner MD Primary Care Provider Akil Serrano MD Primary Care Provider [phone] Encounter Details Date Type Department Care Team (Late st Contact Info) Description 12/07/2004 Before PRISM Converted Visit (Maple) [facility] - Maple conversion [address] [place], [place] [address] Raleigh Angelo MD [address] [phone] Social History Tobacco Use Types Packs/Day Years [...] - RALEIGH ANGELO MD /lr Voice ID: [id number] Doc ID: [id number] [facility] ASSESSMENT AND PLAN: Continue full program activities. Review laboratory results when available. - RALEIGH ANGELO MD /lr Voice ID: [id number] Doc ID: [id number] documented in this encounter Plan of Treatment Upcoming Encounters Date Type Department Care Team (Late st Contact Info) Description 10/01/2024 13:40 EDT Office Visit [facility] Endocrinology - [facility] [address] [place], [place] [phone] Wilder Zaidi, 62 [facility] [address] [place] [address] documented as of this encounter Visit Diagnoses Not on filedocumented in this encounter Care Teams Rn Oncology Research Relationship Specialty Start Date End Date Yan Demarco MD [address] [place] [phone] PCP - General 08/22/09 02/20/10 Corin Skinner MD [address] [place] [phone] PCP - General 10/24/08 08/21/09 Akil Serrano MD [address] [place] [address],[facility] 100 [address] PCP - General 02/21/10 04/16/11 documented as of this encounter
--- OUTSIDE RECORDS SUMMARY | 2024-07-30 03:04 | XMS_ITS | Encounter Summary ---
Author Organization [facility] Address [address] [place] [address] Care Team Providers Care Roll Press Operator Name Role Phone Yan Demarco MD Primary Care Provider Corin Skinner MD Primary Care Provider Akil Serrano MD Primary Care Provider [phone] Encounter Details Date Type Department Care Team (Late st Contact Info) Description 12/06/2004 Before PRISM Converted Visit (Maple) [facility] - Maple conversion [address] [place] [address] Allison Alarcon MD [address] [place] [phone] Social History Tobacco Use Types Packs/Day Years [...] - ALLISON ALARCON MD /re Voice ID: [id number] Doc ID: [id number] ir recommendations later this afternoon. PLAN: 1. Discontinue amantadine. 2. Start Ritalin give dose today then start him tomorrow morning. 3. Offer Percocet as an alternative to codeine. 4. Will flush the PICC with heparin every day to hopefully decrease clotting off. 5. Check BUN, creatinine, sodium, and free T4 tomorrow. 6. UA/C and S. - ALLISON ALARCON MD /re Voice ID: [id number] Doc ID: [id number] documented in this encounter Plan of Treatment Upcoming Encounters Date Type Department Care Team (Late st Contact Info) Description 10/01/2024 13:40 EDT Office Visit [facility] Endocrinology - [facility] [address] [place] [address] Wilder Zaidi, DO 62 [facility] [address] [place] [address] documented as of this encounter Visit Diagnoses Not on filedocumented in this encounter Care Teams Roll Press Operator Relationship Specialty Start Date End Date Yan Demarco MD [address] [place] [address] PCP - General 08/22/09 02/20/10 Corin Skinner MD [address] [place] [phone] PCP - General 10/24/08 08/21/09 Akil Serrano MD [address] [facility] [facility] 100 [place], [place] [address] PCP - General 02/21/10 04/16/11 documented as of this encounter
--- OUTSIDE RECORDS SUMMARY | 2024-07-30 03:04 | XMS_ITS | Encounter Summary ---
Author Organization [facility] Address [address] [place] [address] Care Team Providers Care Solution Mixer Name Role Phone Yan Demarco MD Primary Care Provider Corin Skinner MD Primary Care Provider [phone] Encounter Details Date Type Department Care Team (Late st Contact Info) Description 12/31/2004 Office Visit [facility] - Maple conversion [address] [place] [address] Yan Guadarrama MD 111 [facility], Level [address] [place] [address] Social History Tobacco Use Types [...] 23:08) Addenda for MIGUEL ANGEL MASON VisitID: [id number] Date: 12/31/2004 12/31/2004 22:44 transferred from rehab [...] Unable to quantify level of pain. Treatment FIRE INSPECTOR: (Pain meds at rehab). PAST HX: No [...] --0106 Raleigh Lazo R.N. [place] [facility] [place] [facility]. --0322 Milady Taveras R.N. [place] by stretcher with nurse and tech. --0348 [...] DISPOSITION / DISCHARGE Transported via stretcher by [facility]. Report was given (to Deb Garcia). --12 Tenisha Heredia, Nurse Associate. Clara Guzman R.N., R.N., Nurse Associate. Locked/Released at 01/02/2005 9:37 by Rachel Reynolds R.N. documented in this encounter Plan of Treatment Upcoming Encounters Date Type Department Care Team (Late st Contact Info) Description 10/01/2024 13:40 EDT Office Visit [facility] Endocrinology - [facility] [address] [place] [address] Wilder Zaidi, [address] [facility] [address] [place] [address] documented as of this encounter Visit Diagnoses Not on filedocumented in this encounter Care Teams Solution Mixer Relationship Specialty Start Date End Date Yan Demarco MD [address] [place] [address] PCP - General 08/22/09 02/20/10 Corin Skinner MD [address] [place] [phone] PCP - General 10/24/08 08/21/09 documented as of this encounter
--- OUTSIDE RECORDS SUMMARY | 2024-07-30 03:04 | XMS_ITS | Encounter Summary ---
Author Organization [facility] Address [address] [place] [address] Care Team Providers Care Microbiology Manager Name Role Phone Yan Demarco MD Primary Care Provider Corin Skinner MD Primary Care Provider Akil Serrano MD Primary Care Provider [phone] Encounter Details Date Type Department Care Team (Late st Contact Info) Description 11/27/2004 Before PRISM Converted Visit (Maple) [facility] - Maple conversion [address] [place] [address] Allison Alarcon MD [address] [place] [phone] Social History Tobacco Use Types Packs/Day Years [...] working on being able to establish transfer [facility] to [facility]. Team supports, at this point, that we are probably looking at making that transition towards the end of next week on December 07. Teams concerns reviewed in terms of moms interaction and participation and how to work with her around this. Also additional extended discussion with APPEALS WRITER regarding best modes of communication and management [...] - ALLISON ALARCON MD /lr Voice ID: [id number] Doc ID: [id number] Continues to be appropriate for acute inpatient rehab. 2. We will trial an increase of amantadine. 3. Continue present water intake. 4. Will follow up with Dr. Edwards regarding TSH results. (Total time 45 minutes, greater than 50% direct discussion and review with mom and care coordination with team on aboveissues.) - ALLISON ALARCON MD /lr Voice ID: [id number] Doc ID: [id number] documented in this encounter Plan of Treatment Upcoming Encounters Date Type Department Care Team (Late st Contact Info) Description 10/01/2024 13:40 EDT Office Visit [facility] Endocrinology - [facility] [address] [place] [address] Dejuan Wilderritchie Valencia, 62 [facility] [address] [place] [address] documented as of this encounter Visit Diagnoses Not on filedocumented in this encounter Care Teams Microbiology Manager Relationship Specialty Start Date End Date Yan Demarco MD [address] [place] [address] PCP - General 08/22/09 02/20/10 Corin Skinner MD [address] [place] [phone] PCP - General 10/24/08 08/21/09 Akil Serrano MD 74 [facility] 100 [place] [address] PCP - General 02/21/10 04/16/11 documented as of this encounter
--- OUTSIDE RECORDS SUMMARY | 2024-07-30 03:04 | XMS_ITS | Encounter Summary ---
Author Organization [facility] Address [address] [place] [address] Care Team Providers Care Engine Service Repairer Name Role Phone Yan Demarco MD Primary Care Provider Corin Skinner MD Primary Care Provider Akil Serrano MD Primary Care Provider [phone] Encounter Details Date Type Department Care Team (Late st Contact Info) Description 12/04/2004 Before PRISM Converted Visit (Maple) [facility] - Maple conversion [address] [place] [address] Allison Alarcon MD [address] [place] [phone] Social History Tobacco Use Types Packs/Day Years [...] - ALLISON ALARCON MD /ss Voice ID: [id number] Doc ID: [id number] times of therapies. PLAN: Continue with full program. (Thirty-five minutes total time, greater than 50% direct discussion and review of patient's care with mom and care coordination with team). - ALLISON ALARCON MD /ss Voice ID: [id number] Doc ID: [id number] documented in this encounter Plan of Treatment Upcoming Encounters Date Type Department Care Team (Late st Contact Info) Description 10/01/2024 13:40 EDT Office Visit [facility] Endocrinology - [facility] [address] [place] [address] Wilder Zaidi, DO 62 [facility] [address] [place] [address] documented as of this encounter Visit Diagnoses Not on filedocumented in this encounter Care Teams Engine Service Repairer Relationship Specialty Start Date End Date Yan Demarco MD [address] [place] [address] PCP - General 08/22/09 02/20/10 Corin Skinner MD [address] [place] [phone] PCP - General 10/24/08 08/21/09 Akil Serrano MD [address] [address] PCP - General 02/21/10 04/16/11 documented as of this encounter
--- OUTSIDE RECORDS SUMMARY | 2024-07-30 03:04 | XMS_ITS | Encounter Summary ---
Author Organization [facility] Address [address] [place] [address] Care Team Providers Care Skein Winding Operator Name Role Phone Yan Demarco MD Primary Care Provider [phone] Corin Skinner MD Primary Care Provider Akil Serrano MD Primary Care Provider [phone] Encounter Details Date Type Department Care Team (Late st Contact Info) Description 11/22/2004 Before PRISM Converted Visit (Maple) [facility] - Maple conversion [address] [place] [address] Kylie Larson MD [address] [place] [phone] Social History Tobacco Use Types Packs/Day Years [...] - KYLIE LARSON MD /re Voice ID: [id number] Doc ID: [id number] ssa. No other medication changes will be made today. He will continue comprehensive therapy services for neurorehabilitation. - KYLIE LARSON MD re Voice ID: [id number] Doc ID: [id number] documented in this encounter Plan of Treatment Upcoming Encounters Date Type Department Care Team (Late st Contact Info) Description 10/01/2024 13:40 EDT Office Visit [facility] Endocrinology - [facility] [address] [place] [address] Wilder Zaidi, DO 62 [facility] [address] [place] [address] documented as of this encounter Visit Diagnoses Not on filedocumented in this encounter Care Teams Skein Winding Operator Relationship Specialty Start Date End Date Yan Demarco MD [address] [place] [phone] PCP - General 08/22/09 02/20/10 Corin Skinner MD [address] [address] PCP - General 10/24/08 08/21/09 Akil Serrano MD 74 [facility],[address] [id number] PCP - General 02/21/10 04/16/11 documented as of this encounter
--- OUTSIDE RECORDS SUMMARY | 2024-07-30 03:04 | XMS_ITS | Encounter Summary ---
Author Organization [facility] Address [address] [place] [address] Care Team Providers Care Content Engineer Name Role Phone Yan Demarco MD Primary Care Provider [phone] Corin Skinner MD Primary Care Provider Akil Serrano MD Primary Care Provider [phone] Encounter Details Date Type Department Care Team (Late st Contact Info) Description 11/22/2004 Before PRISM Converted Visit (Maple) [facility] - Maple conversion [address] [place], [place] [address] Raleigh Angelo MD [address] [phone] Social History Tobacco Use Types Packs/Day Years [...] - RALEIGH ANGELO MD /lr Voice ID: [id number] Doc ID: [id number] stright ASSESSMENT AND PLAN: Continue program activities. Increase free water by 200 cc q.i.d. Continue monitoring of electrolytes and renal status. Continue DDAVP, hydrocortisone, and levothyroxine. - RALEIGH ANGELO MD /lr Voice ID: [id number] Doc ID: [id number] documented in this encounter Plan of Treatment Upcoming Encounters Date Type Department Care Team (Late st Contact Info) Description 10/01/2024 13:40 EDT Office Visit [facility] Endocrinology - [address] [phone] Wilder Zaidi, DO 62 [facility] [address] [place] [address] documented as of this encounter Visit Diagnoses Not on filedocumented in this encounter Care Teams Content Engineer Relationship Specialty Start Date End Date Yan Demarco MD [address] [place] [address] PCP - General 08/22/09 02/20/10 Corin Skinner MD [address] [address] PCP - General 10/24/08 08/21/09 Akil Serrano MD 74 [facility],[address] [address] PCP - General 02/21/10 04/16/11 documented as of this encounter
--- OUTSIDE RECORDS SUMMARY | 2024-07-30 03:04 | XMS_ITS | Encounter Summary ---
Author Organization [facility] Address [address] [place] [address] Care Team Providers Care Animal Shelter Clerk Name Role Phone Yan Demarco MD Primary Care Provider Corin Skinner MD Primary Care Provider Akil Serrano MD Primary Care Provider [phone] Encounter Details Date Type Department Care Team (Late st Contact Info) Description 11/30/2004 Before PRISM Converted Visit (Maple) [facility] - Maple conversion [address] [place], [place] [address] Raleigh Angelo MD [address] [phone] Social History Tobacco Use Types Packs/Day Years [...] - RALEIGH ANGELO MD /ss Voice ID: [id number] Doc ID: [id number] phaD: 11/30/2004 - RALEIGH ANGELO MD /ss Voice ID: [id number] Doc ID: [id number] documented in this encounter Plan of Treatment Upcoming Encounters Date Type Department Care Team (Late st Contact Info) Description 10/01/2024 13:40 EDT Office Visit [facility] Endocrinology - [facility] [address] [place], [place] [phone] Wilder Zaidi, 62 [facility] [address] [place] [address] documented as of this encounter Visit Diagnoses Not on filedocumented in this encounter Care Teams Animal Shelter Clerk Relationship Specialty Start Date End Date Yan Demarco MD [address] [place] [phone] PCP - General 08/22/09 02/20/10 Corin Skinner MD [address] [place] [phone] PCP - General 10/24/08 08/21/09 Akil Serrano MD 74 [facility] [place] [address] PCP - General 02/21/10 04/16/11 documented as of this encounter
--- OUTSIDE RECORDS SUMMARY | 2024-07-30 03:04 | XMS_ITS | Encounter Summary ---
Author Organization [facility] Address [address] [place] [address] Care Team Providers Care Certified Nurse Practitioner Name Role Phone Unavailable Primary Care Provider Unavailabl e Encounter Details Date Type Department Care Team (Latest Contact Info) Description 01/15/2005 12:20 EDT - 03/28/2005 11:59 EDT Hospital Encounter [facility] Rehabilitation Therapy Unit Level 2 [address] [place] [address] Allison Alarcon MD [address] [place] [phone] Discharge Disposition: Nursing Facility (Skilled) Social History [...] admitted to the inpatient rehabilitation service at [facility] on November 20, 2004. From a rehabilitation [...] She will continue to reside in the [place] area and she presently requires hemodialysis three times a week. She will make attempts to travel and visit her son in the facility when able. DISCHARGE PLAN: 1. Transfer to [facility] for continuation of subacute level rehab services. 2. 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 The following recommendations are being given by the pediatric endocrinology service. Further questions can be referredto the endocrinology service at [facility] by calling and asking to be connected to the endocrinology service internal communications manager and if available, Dr. Davin Edwards, the pediatric compensation consultant. a. For management of his central diabetes [...] dictation. 5. If patient returns to the [facility] at some point, patients previous primary [...] Signed by Allison Alarcon MD 03/29/2005 09:05 Amrand Alarcon, Sky Alarcon MD Allison Alarcon MD - Allison Alarcon MD A - mt Job ID: [id number] Document ID: [id number] cc: MD Kris Mccauley MD Christa M Zehle, MD Paul James Zimakas, MD *Floresita Ramos MD, [facility], [address], [place] [address] documented in this encounter Discharge Disposition Disposition [...] [facility] that will be his primary physician there yesterday. PLAN: 1. Discharge from our services. 2. Transfer to [facility]. 3. Dictation of discharge summary. (Discharge work, greater than 30 minutes.) Signed by Allison Alarcon MD 03/29/2005 08:45 Sky Hollingsworth MD Allison Alarcon MD - Allison Alarcon MD P - lr Job ID: [id number] Document ID: [id number] cc: * Raleigh Castañeda MD - 03/28/2005 [...] Castañeda MD A - mt Job ID: [id number] Document ID: [id number] cc: * Allison Alarcon MD - 03/27/2005 [...] [facility] [place] multiple issues and needs. PLAN: 1. Recheck [...] Alarcon MD A - mt Job ID: [id number] Document ID: [id number] cc: * Raleigh Castañeda MD - 03/27/2005 [...] Castañeda MD A - chelle Job ID: [id number] Document ID: [id number] cc: * Allison Alarcon MD - 03/26/2005 [...] confirms the patient will be transferred to [facility] on . ASSESSMENT: patient status post CVA with craniopharyngioma. The patient still has difficulty calming himself and communicating needs appropriately when he gets more anxious or frustrated. Final details of MRI planned for tomorrow confirmed with the floor traveling secretary. Also discussed with ENT for them to evaluate him for foreign bodies in his right ear canal. [facility] Sodium levels are showing good control. [...] Alarcon MD A - re Job ID: [id number] Document ID: [id number] cc: * Raleigh Castañeda MD - 03/26/2005 [...] Castañeda MD A - ss Job ID: [id number] Document ID: [id number] cc: * Allison Alarcon MD - 03/25/2005 [...] Alarcon MD A - mt Job ID: [id number] Document ID: [id number] cc: * Raleigh Castañeda MD - 03/25/2005 [...] Castañeda MD P - lr Job ID: [id number] Document ID: [id number] cc: * Allison Alarcon MD - 03/24/2005 [...] Alarcon MD A - mt Job ID: [id number] Document ID: [id number] cc: * Allison Alarcon MD - 03/23/2005 [...] Alarcon MD A - re Job ID: [id number] Document ID: [id number] cc: * Raleigh Castañeda MD - 03/22/2005 [...] Castañeda MD P - lr Job ID: [id number] Document ID: [id number] cc: * Wihco Carlton MD - 03/22/2005 0000 EDT INPATIENT [...] Carlton MD P - lr Job ID: [id number] Document ID: [id number] cc: * Allison Alarcon MD - 03/21/2005 0000 EDT INPATIENT PROGRESS NOTE PT LOC: F002 Service Date: 03/21/2005 DIAGNOSIS: Bilateral cerebrovascular accidents/panhypopituitarism. SUBJECTIVE: Miguel Angel responsive and awake this morning. Denying any pain. Participating in therapies. OBJECTIVE: Vital signs are stable. Affect pleasant. Left hemiparesis continues. Verbal output remains with dysarthria. ASSESSMENT: CVA with panhypopituitarism. Anticipated discharge today to [facility] has been delayed to administrative and approval issues from the Medicaid system per our social scientist. Mom has been informed. In that the [...] coordinate this were covered at length with technical services rep today. Reviewed with mom availability. PLAN: 1. [...] will be able to be transferred to [facility] on that day. (Fifty minutes total time, greater than 50% direct patient and family discussion of issues as aboveand care coordination with team.) Signed by Allison Alarcon MD 03/23/2005 16:47 Sky Hollingsworth MD Allison Alarcon MD - Allison Alarcon MD A - mt Job ID: [id number] Document ID: [id number] cc: * Raleigh Castñaeda MD - 03/21/2005 0000 EDT INPATIENT PROGRESS [...] Castañeda MD P - lr Job ID: [id number] Document ID: [id number] cc: * Allison Alarcon MD - 03/20/2005 [...] been approved and cleared for transfer to [facility] tomorrow. Mom is aware that this will [...] Alarcon MD A - mt Job ID: [id number] Document ID: [id number] cc: * Raleigh Castañeda MD - 03/20/2005 [...] Raleigh Castañeda MD 04/01/2005 13:54 Dena Castañeda, [facility] MD Raleigh Castañeda MD - Raleigh Castañeda MD A - re Job ID: [id number] Document ID: [id number] cc: * Allison Alarcon MD - 03/19/2005 [...] work reports patient has been accepted at [facility]. This final plan is to be reviewed with mom. Miguel Angel has not yet been informed. Staff are videotaping sessions to help give the next staff a baseline of where his sessions have been at and what to continue to work with. [facility] has also asked for a PPD to [...] with the patientprimary care physician from the [facility], Dr. Drew, who was here to see him. Reviewed the medical issues on him at present and focus of care. Dr. Drew indicates he feels he has made excellent progress. At present, there still is not enough staff or support in the [facility] to return him to a home environment. PLAN: 1. PPD to be placed today. 2. Social work working on contacting the mom, who is out of the hospital today, to start establishing a firm plan for when patient will be transferred to [facility] potentially or next Friday. 3. Continue all present medications. 4. Reinforce patient needs to have between 2 to 2.5 liters in fluids per day. Forty minutes total time, greater then 50% care coordination with team. Signed by Allison Alarcon MD 03/20/2005 08:43 Sky Hollingsworth MD Allison Alarcon MD - Allison Alarcon MD A - mt Job ID: [id number] Document ID: [id number] cc: * Raleigh Castañeda MD - 03/19/2005 [...] Raleigh Castañeda MD 03/27/2005 17:21 Dena Castañeda, [facility] MD Raleigh Castañeda MD - Raleigh Castañeda MD A - mt Job ID: [id number] Document ID: [id number] cc: * Allison Alarcon MD - 03/18/2005 [...] Alarcon MD A - mt Job ID: [id number] Document ID: [id number] cc: * Raleigh Castañeda MD - 03/18/2005 [...] Castañeda MD A - re Job ID: [id number] Document ID: [id number] cc: * Raleigh Castañeda MD - 03/17/2005 [...] Castañeda MD A - ss Job ID: [id number] Document ID: [id number] cc: * Raleigh Castañeda MD - 03/16/2005 [...] Raleigh Castañeda MD 03/26/2005 10:01 Dena Castañeda, [facility] MD Raleigh Castañeda MD - Raleigh Castañeda MD P - lr Job ID: [id number] Document ID: [id number] cc: * Wicho Carlton MD - 03/15/2005 [...] Carlton MD P - re Job ID: [id number] Document ID: [id number] cc: * Raleigh Castañeda MD - 03/15/2005 [...] Castañeda MD A - lr Job ID: [id number] Document ID: [id number] cc: * Allison Alarcon MD - 03/14/2005 [...] Alarcon MD A - mt Job ID: [id number] Document ID: [id number] cc: * Raleigh Castañeda MD - 03/14/2005 [...] Castañeda MD P - mh Job ID: [id number] Document ID: [id number] cc: * Allison Alarcon MD - 03/13/2005 [...] Alarcon MD A - re Job ID: [id number] Document ID: [id number] cc: * Raleigh Castañeda MD - 03/13/2005 [...] Castañeda MD P - mh Job ID: [id number] Document ID: [id number] cc: * Allison Alarcon MD - 03/12/2005 [...] Alarcon MD A - mt Job ID: [id number] Document ID: [id number] cc: * Raleigh Castañeda MD - 03/12/2005 [...] Castañeda MD P - mt Job ID: [id number] Document ID: [id number] cc: * Kris Thomas MD - 03/11/2005 [...] Kris Thomas MD P - Job ID: [id number] Document ID: [id number] cc: * Kris Thomas MD - 03/10/2005 [...] Kris Thomas MD P - Job ID: [id number] Document ID: [id number] cc: * Kris Thomas MD - 03/09/2005 [...] Thomas MD P - mh Job ID: [id number] Document ID: [id number] cc: * Wicho Carlton MD - 03/08/2005 [...] Carlton MD P - re Job ID: [id number] Document ID: [id number] cc: * Raleigh Castañeda MD - 03/08/2005 [...] Raleigh Castañeda MD P - Job ID: [id number] Document ID: [id number] cc: * Raleigh Castañeda MD - 03/07/2005 [...] Castañeda MD A - re Job ID: [id number] Document ID: [id number] cc: * Wicho Carlton MD - 03/07/2005 [...] Carlton MD P - ss Job ID: [id number] Document ID: [id number] cc: * Raleigh Castañeda MD - 03/06/2005 [...] Dena Castañeda, Pipe Castañeda, Pipe Castañeda MD Raliegh Castañeda MD - Raleigh Castañeda MD P - smoking tobacco cutter operator Job ID: [id number] Document ID: [id number] cc: * Wicho Carlton MD - 03/06/2005 [...] Carlton MD A - mt Job ID: [id number] Document ID: [id number] cc: * Wicho Carlton MD - 03/05/2005 [...] disposition options, as well, as discussed with vp digital marketing social media and crm. Apparently,his wood milling machine operator is uncertain whether he can meet his [...] Carlton MD P - ss Job ID: [id number] Document ID: [id number] cc: * Raleigh Castañeda MD - 03/05/2005 [...] Castañeda MD A - re Job ID: [id number] Document ID: [id number] cc: * Raleigh Castañeda MD - 03/04/2005 [...] Castañeda MD A - ss Job ID: [id number] Document ID: [id number] cc: * Wicho Carlton MD - 03/04/2005 0000 EDT INPATIENT PROGRESS NOTE PT LOC: F002 Service Date: 03/04/2005 Miguel Angel appears to be more agitated over the last several days with uncertain etiology. Vital signs are stable, afebrile. Heart regular, lungs clear. Abdomen: G-tube is intact. Calves soft and nontender. Neurologic without change. IMPRESSION: 1. Craniopharyngioma resection: Continue present therapy program. nutrition services manager is actively involved. I am of the understanding that outside agencies are going to be looking at him this week. 2. Hyponatremia: Continue to monitor intermittently. Signed by Wicho Carlton MD 03/05/2005 15:58 Nadine Garcia MD Wicho Carlton MD - Wicho Carlton MD P - ss Job ID: [id number] Document ID: [id number] cc: * Drew Larson MD - 03/03/2005 [...] Larson MD A - re Job ID: [id number] Document ID: [id number] cc: * Raleigh Castañeda MD - 03/02/2005 [...] Castañeda MD A - chelle Job ID: [id number] Document ID: [id number] cc: * Raleigh Castañeda MD - 03/01/2005 [...] MD - Raleigh Castañeda MD A - smoking tobacco cutter operator Job ID: [id number] Document ID: [id number] cc: * Wicho Carlton MD - 02/28/2005 [...] elevated but stable. We are [facility]. Signed by Wicho Carlton MD 02/28/2005 14:08 Nadine Garcia MD Wicho Carlton MD - Wicho Carlton MD P - ss Job ID: [id number] Document ID: [id number] cc: * Raleigh Castañeda MD - 02/28/2005 [...] Castañeda MD A - mt Job ID: [id number] Document ID: [id number] cc: * Wicho Cralton MD - 02/27/2005 0000 EDT INPATIENT PROGRESS [...] Carlton MD A - ss Job ID: [id number] Document ID: [id number] cc: * Raleigh Castañeda MD - 02/27/2005 [...] Castañeda MD A - re Job ID: [id number] Document ID: [id number] cc: * Wicho Carlton MD - 02/26/2005 [...] Carlton MD A - ss Job ID: [id number] Document ID: [id number] cc: * Raleigh Castañeda MD - 02/26/2005 [...] Castañeda MD A - re Job ID: [id number] Document ID: [id number] cc: * Wicho Carlton MD - 02/25/2005 [...] Carlton MD P - ss Job ID: [id number] Document ID: [id number] cc: * Raleigh Castañeda MD - 02/25/2005 0000 EDT INPATIENT PROGRESS NOTE PT LOC: F002 Service Date: 02/25/2005 Mr. Burgos is a 68-irhd-jyyrgaichqekw from resection of craniopharyngioma with resultant stroke [...] Castañeda MD P - ss Job ID: [id number] Document ID: [id number] cc: * Allison Alarcon MD - 02/24/2005 [...] to try and help with some of [place] behaviors. PLAN: 1. Change Ritalin to 15 mg q.a.m. and 5 mg q.p.m. 2. Start risperidone 1 mg p.o. q.p.m. 3. Labs as ordered for tomorrow. Allow Robaxin as a p.r.n. for discomfort at night. Signed by Allison Alarcon MD 02/26/2005 23:34 Sky Hollingsworth MD Allison Alarcon MD - Allison Alarcon MD A - re Job ID: [id number] Document ID: [id number] cc: * Allison Alarcon MD - 02/23/2005 [...] Alarcon MD P - lr Job ID: [id number] Document ID: [id number] cc: * Wicho Carlton MD - 02/22/2005 [...] Carlton MD P - ss Job ID: [id number] Document ID: [id number] cc: * Raleigh Castañeda MD - 02/22/2005 [...] Castañeda MD A - mt Job ID: [id number] Document ID: [id number] cc: * Allison Alarcon MD - 02/21/2005 [...] primary care physician, Dr. Drew, in the [place] area and reviewed with him the concerns regarding Robinpotential return to the [facility]. Details of agency management still being [...] Alarcon MD A - re Job ID: [id number] Document ID: [id number] cc: * Raleigh Castañeda MD - 02/21/2005 [...] Castañeda MD A - ss Job ID: [id number] Document ID: [id number] cc: * Allison Alarcon MD - 02/20/2005 [...] Alarcon MD A - ss Job ID: [id number] Document ID: [id number] cc: * Raleigh Castañeda MD - 02/20/2005 [...] Castañeda MD A - re Job ID: [id number] Document ID: [id number] cc: * Raleigh Castañeda MD - 02/19/2005 [...] Castañeda MD A - mt Job ID: [id number] Document ID: [id number] cc: * Allison Alarcon MD - 02/19/2005 [...] if needed. Met also with Bettina social scientist out of his primary careoffice, who continues to follow. There was a case management meeting called last week in his local area. Primary care physician still concerned that there are not sufficient services that are going to be available in the local area from a home therapy standpoint, as well as needing to have a clear understanding of [place] behaviors and a good behavioral back-up plan. [...] Alarcon MD A - re Job ID: [id number] Document ID: [id number] cc: * Allison Alarcon MD - 02/18/2005 [...] Alarcon MD P - ss Job ID: [id number] Document ID: [id number] cc: * Raleigh Castañeda MD - 02/18/2005 [...] Castañeda MD A - ss Job ID: [id number] Document ID: [id number] cc: * Drew Larson MD - 02/17/2005 [...] will repeat labs tomorrow. Primary service will bean picker machine operator anychanges in his LFTs andrefer to appropriate specialists as necessary. Dr. Castañeda will continue to follow closely. Electrolytes generally are under adequate control today. Follow-up electrolytes for tomorrow. Signed by Drew Larson MD 02/18/2005 11:45 Leroy Boateng MD Drew Larson MD - Drew Larson MD P - re Job ID: [id number] Document ID: [id number] cc: * Drew Larson MD - 02/16/2005 [...] Larson MD P - re Job ID: [id number] Document ID: [id number] cc: * Raleigh Castañeda MD - 02/15/2005 [...] Castañeda MD A - ss Job ID: [id number] Document ID: [id number] cc: * Raleigh Castañeda MD - 02/14/2005 [...] Castañeda MD P - mt Job ID: [id number] Document ID: [id number] cc: * Allison Alarcon MD - 02/14/2005 [...] Alarcon MD A - mt Job ID: [id number] Document ID: [id number] cc: * Allison Alarcon MD - 02/13/2005 [...] Alarcon MD A - [place] Job ID: [id number] Document ID: [id number] cc: * Raleigh Castañeda MD - 02/13/2005 [...] Castañeda MD P - mh Job ID: [id number] Document ID: [id number] cc: * Allison Alarcon MD - 02/12/2005 [...] Dr. Edwards, who definitely [facility] and his foster [...] Alarcon MD A - mt Job ID: [id number] Document ID: [id number] cc: * Raleigh Castañeda MD - 02/12/2005 [...] Castañeda MD P - mh Job ID: [id number] Document ID: [id number] cc: * Raleigh Castañeda MD - 02/11/2005 [...] Castañeda MD P - mh Job ID: [id number] Document ID: [id number] cc: * Allison Alarcon MD - 02/11/2005 [...] and have education provided by a pediatric compensation consultant. Sodium continues to fluctuate be within an [...] Alarcon MD A - mo Job ID: [id number] Document ID: [id number] cc: * Allison Alarcon MD - 02/10/2005 [...] Alarcon MD A - mo Job ID: [id number] Document ID: [id number] cc: * Jai Barrera MD - 02/09/2005 [...] MD - Jai Barrera MD A - ri Job ID: [id number] Document ID: [id number] cc: * Raleigh Castañeda MD - 02/08/2005 [...] Castañeda MD A - mt Job ID: [id number] Document ID: [id number] cc: * Wicho Carlton MD - 02/08/2005 [...] Carlton MD A - mt Job ID: [id number] Document ID: [id number] cc: * Allison Alarcon MD - 02/07/2005 [...] Conference: Met with social work and nurse case making machine operator from his local area and his mom [...] Alarcon MD A - mt Job ID: [id number] Document ID: [id number] cc: * Raleigh Castañeda MD - 02/07/2005 [...] Castañeda MD P - lr Job ID: [id number] Document ID: [id number] cc: * Allison Alarcon MD - 02/06/2005 [...] Alarcon MD A - re Job ID: [id number] Document ID: [id number] cc: * Raleigh Castañeda MD - 02/06/2005 0000 EDT INPATIENT PROGRESS NOTE PT LOC: F002 Service Date: 02/06/2005 Night sheets reviewed. Patient tolerating the therapy program. Vital signs are stable. Patient is afebrile. Medical status is suitable to continue full program activities. Signed by Raleigh Castañeda MD 02/08/2005 09:37 Pipe Coery MD Raleigh Castañeda MD - Raleigh Castañeda MD A - re Job ID: [id number] Document ID: [id number] cc: * Allison Alarcon MD - 02/05/2005 [...] Alarcon MD A - re Job ID: [id number] Document ID: [id number] cc: * Raleigh Castañeda MD - 02/05/2005 [...] Castañeda MD P - lr Job ID: [id number] Document ID: [id number] cc: * Wicho Carlton MD - 02/04/2005 [...] Carlton MD P - mo Job ID: [id number] Document ID: [id number] cc: * Raleigh Castañeda MD - 02/04/2005 [...] Castañeda MD A - mt Job ID: [id number] Document ID: [id number] cc: * Raleigh Castañeda MD - 02/03/2005 [...] Raleigh Castañeda MD A - Job ID: [id number] Document ID: [id number] cc: * Drew Larson MD - 02/02/2005 [...] Larson MD P - lr Job ID: [id number] Document ID: [id number] cc: * Wicho Carlton MD - 02/01/2005 [...] Carlton MD P - ss Job ID: [id number] Document ID: [id number] cc: * Raleigh Castañeda MD - 02/01/2005 [...] Castañeda MD P - mh Job ID: [id number] Document ID: [id number] cc: * Raleigh Castañeda MD - 01/31/2005 [...] Castañeda MD P - lr Job ID: [id number] Document ID: [id number] cc: * Wicho Carlton MD - 01/30/2005 0000 EDT INPATIENT PROGRESS NOTE PT LOC: F002 Service Date: 01/30/2005 The patient is relatively calm this morning. He was evaluated by vp digital marketing social media and crm yesterday at the critical access hospital level for evaluation of next appropriate setting. [...] and Zoloft. DISPOSITION: Social ervices at the [facility] is working with Lashon Lawton the [facility] to help assess placement issues. Case discussed with vp digital marketing social media and crm this morning. Signed by Wicho Carlton MD 01/31/2005 08:05 Nadine Garcia MD Wicho Carlton MD - Wicho Carlton MD A - re Job ID: [id number] Document ID: [id number] cc: * Raleigh Castañeda MD - 01/30/2005 [...] Castañeda MD P - re Job ID: [id number] Document ID: [id number] cc: * Wicho Carlton MD - 01/29/2005 [...] Carlton MD P - mo Job ID: [id number] Document ID: [id number] cc: * Raleigh Castañeda MD - 01/29/2005 [...] Castañeda MD P - re Job ID: [id number] Document ID: [id number] cc: * Wicho Carlton MD - 01/28/2005 [...] Carlton MD P - chelle Job ID: [id number] Document ID: [id number] cc: * Raleigh Castañeda MD - 01/28/2005 0000 EDT INPATIENT PROGRESS NOTE PT LOC: F002 Service Date: 01/28/2005 Mr. Burgso is a 14-year-old with stroke syndrome following [...] Castañeda MD P - lr Job ID: [id number] Document ID: [id number] cc: * Wicho Carlton MD - 01/27/2005 [...] Carlton MD P - re Job ID: [id number] Document ID: [id number] cc: * Wicho Carlton MD - 01/26/2005 [...] Carlton MD P - lr Job ID: [id number] Document ID: [id number] cc: * Wicho Carlton MD - 01/25/2005 [...] Carlton MD 01/26/2005 12:22 Nadine Garcia MD Wicoh Carlton MD - Wicho Carlton MD P - ss Job ID: [id number] Document ID: [id number] cc: * Raleigh Castañeda MD - 01/25/2005 [...] Castañeda MD A - mt Job ID: [id number] Document ID: [id number] cc: * Allison Alarcon MD - 01/24/2005 [...] Alarcon MD A - MO Job ID: [id number] Document ID: [id number] cc: A - mo Job ID: [id number] Document ID: [id number] cc: * Raleigh Castañeda MD - 01/24/2005 [...] Castañeda MD P - re Job ID: [id number] Document ID: [id number] cc: * Allison Alarcon MD - 01/23/2005 [...] Alarcon MD A - ss Job ID: [id number] Document ID: [id number] cc: * Raleigh Castañeda MD - 01/23/2005 [...] Castañeda MD P - ss Job ID: [id number] Document ID: [id number] cc: * Allison Alarcon MD - 01/22/2005 [...] 5. Med psych to talk to prior case making machine operator and discuss medication regimen options. 6. Allow Percocet and Benadryl. 7. Team to work on behavioral plan with MEd Psych. minutes total time, greater than 50% direct patient, family education and care coordination with team). Signed by Allison Alarcon MD 01/23/2005 09:29 ACaSky Dumont MD Allison Alarcon MD - Allison Alarcon MD A - RE Job ID: [id number] Document ID: [id number] cc: * Raleigh Castañeda MD - 01/22/2005 [...] Castañeda MD P - ss Job ID: [id number] Document ID: [id number] cc: * Allison Alarcon MD - 01/21/2005 [...] Alarcon MD A - ss Job ID: [id number] Document ID: [id number] cc: * Raleigh Castañeda MD - 01/21/2005 [...] Castañeda MD P - lr Job ID: [id number] Document ID: [id number] cc: * Drew Larson MD - 01/20/2005 [...] him on the rehab unit with a chief nursing officer wheeling him around. When he is distracted, [...] Larson MD A - chelle Job ID: [id number] Document ID: [id number] cc: * Raleigh Castañeda MD - 01/19/2005 [...] Castañeda MD P - re Job ID: [id number] Document ID: [id number] cc: * Wicho Carlton MD - 01/18/2005 [...] Carlton MD A - re Job ID: [id number] Document ID: [id number] cc: * Raleigh Castañeda MD - 01/18/2005 0000 EDT INPATIENT PROGRESS NOTE PT LOC: F002 Service Date: 01/18/2005 Mr. Burgos is a 75-yxxt-lllpreztzlciz from resection of a craniopharyngioma with secondary [...] Raleigh Castañeda MD 01/25/2005 11:39 Dena Castañeda, [facility] MD Raleigh Castañeda MD - Raleigh Castañeda MD A - ss Job ID: [id number] Document ID: [id number] cc: * Allison Alarcon MD - 01/17/2005 [...] Alarcon MD P - lr Job ID: [id number] Document ID: [id number] cc: * Allison Alarcon MD - 01/16/2005 [...] Alarcon MD A - re Job ID: [id number] Document ID: [id number] cc: documented in this encounter Plan of Treatment Upcoming Encounters Date Type Department Care Team (Late st Contact Info) Description 10/01/2024 13:40 EDT Office Visit [facility] Endocrinology - [facility] [place] [address] [place] [address] Wilder Zaidi, [address] [facility] [address] [place] [address] documented [...] Results * SODIUM (03/26/2005 6:50 EDT) Pathologist [facility] Sodium 140 136 - 145 mEq/L [facility] Comment:Performed at [facility], [place], [place] 03/26/2005 6:50 EDT 03/26/2005 7:12 EDT us Allison lAarcon MD CHEMISTRY & BLOOD GAS ORDERA BLES Final Result Performing Organization Address [facility] Co de Phone Number [facility] [address] [place] [address] * (ABNORMAL) LIPID PROFILE (INCLUDES CHOLESTEROL, TRIGLYCERIDES, HDL, LDL) (03/22/2005 6:35 EDT) Cholesterol 174 mg/dl [facility] Comment: Desirable:<200 Borderline:200-239 High Risk:>xd=578 Triglycerides 675(H) 34 - 165 mg/dl [facility] Comment:Performed at [facility], [place], [place] HDL 24 mg/dl [facility] Comment: Highly Desirable:>60 Desirable:35-60 High Risk:<35 FASTING LDL, Calculated Triglyceride greater than 400 mg/dl, LDL calculation invalid. Desirable:<130 Borderline:130- 159 High Risk:>ds=615 mg/dl [facility] Comment:FASTING Chol/HDL Ratio 7.3 FASTING [facility] Fasting? Yes [facility] 03/22/2005 6:35 EDT 03/22/2005 6:49 EDT us Allison Alarcon MD CHEMISTRY & BLOOD GAS ORDERA BLES Final Result Performing Organization Address [facility] Co de Phone Number [facility] [address] [place] [address] * (ABNORMAL) AST (03/22/2005 6:35 EDT) AST 86(H) 16 - 38 U/L [facility] Comment:Performed at [facility] [place] 03/22/2005 6:35 EDT 03/22/2005 6:49 EDT us Allison Alarcon MD CHEMISTRY & BLOOD GAS ORDERA BLES Final Result Performing Organization Address [facility] Co de Phone Number [facility] [address] [place] [address] * (ABNORMAL) ALT (03/22/2005 6:35 EDT) ALT 335(H) 10 - 45 U/L [facility] Comment:Performed at [place], [place] 03/22/2005 6:35 EDT 03/22/2005 6:49 EDT us Allison Alarcon MD CHEMISTRY & BLOOD GAS ORDERA BLES Final Result Performing Organization Address [facility] Co de Phone Number [facility] [address] [place] [address] * ALKALINE PHOSPHATASE (03/22/2005 6:35 EDT) Total Alkaline Phosphatase 309 130 - 525 U/L [facility] Comment:Performed at [place], [place] 03/22/2005 6:35 EDT 03/22/2005 6:49 EDT us Allison Alarcon MD CHEMISTRY & BLOOD GAS ORDERA BLES Final Result Performing Organization Address [facility] Co de Phone Number [facility] [address] [place] [address] * (ABNORMAL) SODIUM (03/20/2005 6:45 EDT) Sodium 149(H) 136 - 145 mEq/L [facility] Comment:Performed at [place], [place] 03/20/2005 6:45 EDT 03/20/2005 6:47 EDT us Allison Alarcon MD CHEMISTRY & BLOOD GAS ORDERA BLES Final Result Performing Organization Address [facility] Co de Phone Number [facility] [address] [place] [address] * (ABNORMAL) SODIUM (03/18/2005 6:45 EDT) Sodium 148(H) 136 - 145 mEq/L [facility] Comment:Performed at [place], [place] 03/18/2005 6:45 EDT 03/18/2005 6:56 EDT us Allison Alarcon MD CHEMISTRY & BLOOD GAS ORDERA BLES Final Result Performing Organization Address [facility] de Phone Number [facility] [address] [place] [address] * GLUCOSE, GLUCOMETER (03/15/2005 5:32 EDT) Glucose, Fingerstick 89 70 - 110 mg/dl [facility] [employer] ID [id number] Test Performed by Nursing Services [facility] 03/15/2005 5:32 EDT 03/15/2005 22:32 EDT us Allison Alarcon MD CHEMISTRY & BLOOD GAS ORDERA BLES Final Result Performing Organization Address [facility] de Phone Number [facility] [address] [place] [address] * SODIUM (03/14/2005 6:25 EDT) Sodium 145 136 - 145 mEq/L [facility] Comment:Performed at [facility] [place] 03/14/2005 6:25 EDT 03/14/2005 6:53 EDT us Allison Alarcon MD CHEMISTRY & BLOOD GAS ORDERA BLES Final Result Performing Organization Address [facility] de Phone Number [facility] [address] [place] [address] * (ABNORMAL) SODIUM (03/13/2005 6:00 EDT) Sodium 152(H) 136 - 145 mEq/L [facility] Comment:Performed at [facility] [place] 03/13/2005 6:00 EDT 03/13/2005 6:59 EDT us Allison Alarcon MD CHEMISTRY & BLOOD GAS ORDERA BLES Final Result Performing Organization Address [facility] de Phone Number [facility] [address] [place] [address] * (ABNORMAL) SODIUM (03/12/2005 17:04 EDT) Pathologist [facility] Sodium 151(H) 136 - 145 mEq/L [facility] Comment:Slight hemolysis 03/12/2005 17:0 4 EDT 03/12/2005 17:05 EDT Allison Alarcon MD CHEMISTRY & BLOOD GAS ORDERA BLES Final Result [facility] [address] [place] [address] * (ABNORMAL) TRIGLYCERIDE (03/06/2005 6:25 EDT) [facility] Triglycerides 342(H) 34 - 165 mg/dl [facility] Comment:Performed at [place], [place] 03/06/2005 6:25 EDT 03/06/2005 6:32 EDT us Allison Alarcon MD CHEMISTRY & BLOOD GAS ORDERA BLES Final Result Performing Organization Address [facility] Co de Phone Number [facility] [address] [place] [address] * T3, TOTAL (03/06/2005 6:25 EDT) Pathologist [facility] T3, Total 147 60 - 181 ng/dl [facility] 03/06/2005 6:25 EDT 03/06/2005 6:32 EDT us Allison Alarcon MD CHEMISTRY & BLOOD GAS ORDERA BLES Final Result Performing Organization Address [facility] Co de Phone Number [facility] [address] [place] [address] * GLUCOSE, SERUM (03/06/2005 6:25 EDT) Pathologist [facility] Glucose, Serum 90 70 - 110 mg/dl [facility] Comment:Performed at [place], [place] 03/06/2005 6:25 EDT 03/06/2005 6:32 EDT us Allison Alarcon MD CHEMISTRY & BLOOD GAS ORDERA BLES Final Result Performing Organization Address [facility] de Phone Number [facility] [address] [place] [address] * PREALBUMIN (03/06/2005 6:25 EDT) Prealbumin 35 mg/dl [facility] 03/06/2005 6:25 EDT 03/06/2005 6:32 EDT us Allison Alarcon MD CHEMISTRY & BLOOD GAS ORDERA BLES Final Result Performing Organization Address [facility] de Phone Number [facility] [address] [place] [address] * (ABNORMAL) ELECTROLYTES (03/06/2005 6:25 EDT) Sodium 147(H) 136 - 145 mEq/L [facility] Potassium 4.6 3.6 - 5.2 mEq/L [facility] Chloride 111(H) 96 - 110 mEq/L [facility] CO2 25 24 - 32 mEq/L [facility] Comment:Performed at [facility] [place], [place] 03/06/2005 6:25 EDT 03/06/2005 6:32 EDT Allison Alarcon MD CHEMISTRY & BLOOD GAS ORDERA BLES Final Result Performing Organization Address [facility] de Phone Number [facility] [address] [place] [address] * (ABNORMAL) HEMAGRAM (03/06/2005 6:25 EDT) WBC [...] 15.2 % [facility] Comment:Performed at [facility] [place] 03/06/2005 6:25 EDT 03/06/2005 6:32 EDT us Allison Alarcon MD HEMATOLOGY & PF4 ORDERABLES Final Result [facility] [address] [place] [address] * T4 FREE (03/06/2005 6:25 EDT) Free T4 1.0 0.8 - 1.8 ng/dl [facility] 03/06/2005 6:25 EDT 03/06/2005 6:32 EDT us Allison Alarcon MD CHEMISTRY & BLOOD GAS ORDERA BLES Final Result Performing Organization Address [facility] Co de Phone Number [facility] [address] [place] [address] * T3 FREE (03/06/2005 6:25 EDT) T3, Free 2.6 2.3 - 4.2 pg/mL [facility] 03/06/2005 6:25 EDT 03/06/2005 6:32 EDT us Allison Alarcon MD CHEMISTRY & BLOOD GAS ORDERA BLES Final Result Performing Organization Address [facility] Co de Phone Number [facility] [address] [place] [address] * CREATININE (03/06/2005 6:25 EDT) Creatinine 0.6 0.6 - 1.2 mg/dl [facility] Comment:Performed at [facility] [place], [place] 03/06/2005 6:25 EDT 03/06/2005 6:32 EDT Allison Alarcon MD HISTORICAL LAB FOR SQ LOAD F inal Result Performing Organization Address [facility] de Phone Number [facility] [address] [place] [address] * (ABNORMAL) BUN (03/06/2005 6:25 EDT) BUN 7(L) 8 - 21 mg/dl [facility] Comment:Performed at [place], [place] 03/06/2005 6:25 EDT 03/06/2005 6:32 EDT us Allison Alarcon MD CHEMISTRY & BLOOD GAS ORDERA BLES Final Result Performing Organization Address [facility] de Phone Number [facility] [address] [place] [address] * (ABNORMAL) AST (03/06/2005 6:25 EDT) AST 155(H) 16 - 38 U/L [facility] Comment:Performed at [place], [place] 03/06/2005 6:25 EDT 03/06/2005 6:32 EDT us Allison Alarcon MD CHEMISTRY & BLOOD GAS ORDERA BLES Final Result Performing Organization Address [facility] de Phone Number [facility] [address] [place] [address] * (ABNORMAL) ALT (03/06/2005 6:25 EDT) ALT 397(H) 10 - 45 U/L [facility] Comment:Performed at [place], [place] 03/06/2005 6:25 EDT 03/06/2005 6:32 EDT us Allison Alarcon MD CHEMISTRY & BLOOD GAS ORDERA BLES Final Result Performing Organization Address [facility] de Phone Number [facility] [address] [place] [address] * SODIUM (03/01/2005 6:55 EDT) Sodium 140 136 - 145 mEq/L [facility] Comment:Performed at [place], [place] 03/01/2005 6:55 EDT 03/01/2005 7:29 EDT us Allison Alarcon MD CHEMISTRY & BLOOD GAS ORDERA BLES Final Result Performing Organization Address [facility] de Phone Number [facility] [address] [place] [address] * (ABNORMAL) ELECTROLYTES (02/28/2005 6:30 EDT) Sodium 143 136 - 145 mEq/L [facility] Potassium 4.2 3.6 - 5.2 mEq/L [facility] Chloride 107 96 - 110 mEq/L [facility] CO2 23(L) 24 - 32 mEq/L [facility] Comment:Performed at [place], [place] 02/28/2005 6:30 EDT 02/28/2005 8:22 EDT us Allison Alarcon MD CHEMISTRY & BLOOD GAS ORDERA BLES Final Result Performing Organization Address [facility] de Phone Number [facility] [address] [place] [address] * CREATININE (02/28/2005 6:30 EDT) Creatinine 0.7 0.6 - 1.2 mg/dl [facility] Comment:Performed at [place], [place] 02/28/2005 6:30 EDT 02/28/2005 8:22 EDT Allison Alarcon MD HISTORICAL LAB FOR SQ LOAD F inal Result Performing Organization Address [facility] Co de Phone Number [facility] [address] [place] [address] * BUN (02/28/2005 6:30 EDT) Pathologist [facility] BUN 14 8 - 21 mg/dl [facility] Comment:Performed at [place], [place] 02/28/2005 6:30 EDT 02/28/2005 8:22 EDT Allison Alarcon MD CHEMISTRY & BLOOD GAS ORDERA BLES Final Result [facility] [address] [place] [address] * SODIUM (02/26/2005 8:52 EDT) [facility] Sodium 144 136 - 145 mEq/L [facility] Comment:Performed at [place], [place] 02/26/2005 8:52 EDT 02/26/2005 8:54 EDT us Allison Alarcon MD CHEMISTRY & BLOOD GAS ORDERA BLES Final Result [facility] [address] [place] [address] * HEPATITIS C ANTIBODY (02/26/2005 8:52 EDT) [facility] Hepatitis C Ab Neg [facility] 02/26/2005 8:52 EDT 02/26/2005 8:54 EDT us Allison Alarcon MD CHEMISTRY & BLOOD GAS ORDERA BLES Final Result [facility] [address] [place] [address] * HEPATITIS B SURFACE ANTIBODY (02/26/2005 8:52 EDT) Pathologist [facility] Hepatitis B Surface Ab Indeterminate - consider retesting or reimmunization. [facility] 02/26/2005 8:52 EDT 02/26/2005 8:54 EDT us Allison Alarcon MD CHEMISTRY & BLOOD GAS ORDERA BLES Final Result Performing Organization Address [facility]/ZIP Co de Phone Number [facility] [address] [place] [address] * HEPATITIS A TOTAL ANTIBODY (02/26/2005 8:52 EDT) Hep A Antibody Neg [facility] 02/26/2005 8:52 EDT 02/26/2005 8:54 EDT us Allison Alarcon MD CHEMISTRY & BLOOD GAS ORDERA BLES Final Result Performing Organization Address [facility]/ZIP Co de Phone Number [facility] [address] [place] [address] * BUN (02/26/2005 8:52 EDT) Pathologist [facility] BUN 14 8 - 21 mg/dl [facility] Comment:Performed at [place], [place] 02/26/2005 8:52 EDT 02/26/2005 8:54 EDT us Allison Alarcon MD CHEMISTRY & BLOOD GAS ORDERA BLES Final Result Performing Organization Address [facility] de Phone Number [facility] [address] [place] [address] * (ABNORMAL) AST (02/26/2005 8:52 EDT) Pathologist [facility] AST 88(H) 16 - 38 U/L [facility] Comment:Performed at [employer] [facility] [employer] [facility] [place], [place] 02/26/2005 8:52 EDT 02/26/2005 8:54 EDT us Allison Alarcon MD CHEMISTRY & BLOOD GAS ORDERA BLES Final Result Performing Organization Address [facility] Co de Phone Number [facility] [address] [place] [address] * (ABNORMAL) ALT (02/26/2005 8:52 EDT) ALT 274(H) 10 - 45 U/L [facility] Comment:Performed at [place], [place] 02/26/2005 8:52 EDT 02/26/2005 8:54 EDT Allison Alarcon MD CHEMISTRY & BLOOD GAS ORDERA BLES Final Result Performing Organization Address [facility] de Phone Number [facility] [address] [place] [address] * ALKALINE PHOSPHATASE (02/26/2005 8:52 EDT) Pathologist [facility] Total Alkaline Phosphatase 227 130 - 525 U/L [facility] Comment:Performed at [place], [place] 02/26/2005 8:52 EDT 02/26/2005 8:54 EDT Allison Alarcon MD CHEMISTRY & BLOOD GAS ORDERA BLES Final Result Performing Organization Address [facility] de Phone Number [facility] [address] [place] [address] * ALBUMIN (02/26/2005 8:52 EDT) Pathologist [facility] Albumin 4.6 3.0 - 5.5 g/dl [facility] Comment:Performed at [place], [place] 02/26/2005 8:52 EDT 02/26/2005 8:54 EDT Allison Alarcon MD CHEMISTRY & BLOOD GAS ORDERA BLES Final Result Performing Organization Address [facility] de Phone Number [facility] [address] [place] [address] * (ABNORMAL) SODIUM (02/24/2005 10:40 EDT) Pathologist [facility] Sodium 135(L) 136 - 145 mEq/L [facility] Comment:Performed at [place], [place] 02/24/2005 10:4 0 EDT 02/24/2005 10:58 EDT Allison Alarcon MD CHEMISTRY & BLOOD GAS ORDERA BLES Final Result Performing Organization Address [facility] de Phone Number [facility] [address] [place] [address] * SODIUM (02/22/2005 6:00 EDT) Sodium 144 136 - 145 mEq/L [facility] Comment:Performed at [facility] [place] 02/22/2005 6:00 EDT 02/22/2005 6:53 EDT Allison Alarcon MD CHEMISTRY & BLOOD GAS ORDERA BLES Final Result Performing Organization Address [facility] de Phone Number [facility] [address] [place] [address] * (ABNORMAL) SODIUM (02/21/2005 10:22 EDT) Sodium 154(H) 136 - 145 mEq/L [facility] Comment: BY F.STrena Performed at [place], [place] 02/21/2005 10:2 2 EDT 02/21/2005 10:24 EDT us Allison Alarcon MD CHEMISTRY & BLOOD GAS ORDERA BLES Final Result Performing Organization Address [facility] de Phone Number [facility] [address] [place] [address] * (ABNORMAL) SODIUM (02/20/2005 6:00 EDT) Sodium 153(H) 136 - 145 mEq/L [facility] Comment: Sample retested, result confirmed Performed at [place], [place] 02/20/2005 6:00 EDT 02/20/2005 6:37 EDT Allison Alarcon MD CHEMISTRY & BLOOD GAS ORDERA BLES Final Result Performing Organization Address [facility] Co de Phone Number [facility] [address] [place] [address] * SODIUM (02/18/2005 8:06 EDT) Sodium 139 136 - 145 mEq/L [facility] Comment:Performed at [facility], [place], [place] 02/18/2005 8:06 EDT 02/18/2005 8:08 EDT Allison Alarcon MD CHEMISTRY & BLOOD GAS ORDERA BLES Final Result Performing Organization Address [facility]/ZIP Co de Phone Number [facility] [address] [place] [address] * (ABNORMAL) SODIUM (02/17/2005 6:20 EDT) Sodium 149(H) 136 - 145 mEq/L [facility] 02/17/2005 6:20 EDT 02/17/2005 6:45 EDT us Allison Alarcon MD CHEMISTRY & BLOOD GAS ORDERA BLES Final Result Performing Organization Address [facility] Co de Phone Number [facility] [address] [place] [address] * (ABNORMAL) AST (02/17/2005 6:20 EDT) AST 176(H) 16 - 38 U/L [facility] 02/17/2005 6:20 EDT 02/17/2005 6:45 EDT us Allison Alarcon MD CHEMISTRY & BLOOD GAS ORDERA BLES Final Result Performing Organization Address [facility]/ZIP Co de Phone Number [facility] [address] [place] [address] * (ABNORMAL) ALT (02/17/2005 6:20 EDT) ALT 338(H) 10 - 45 U/L [facility] 02/17/2005 6:20 EDT 02/17/2005 6:45 EDT us Allison Alarcon MD CHEMISTRY & BLOOD GAS ORDERA BLES Final Result Performing Organization Address [facility] Co de Phone Number [facility] [address] [place] [address] * (ABNORMAL) SODIUM (02/16/2005 6:00 EDT) Sodium 154(H) 136 - 145 mEq/L [facility] Comment:Performed at [place], [place] 02/16/2005 6:00 EDT 02/16/2005 7:48 EDT us Allison Alarcon MD CHEMISTRY & BLOOD GAS ORDERA BLES Final Result Performing Organization Address [facility] de Phone Number [facility] [address] [place] [address] * (ABNORMAL) SODIUM (02/15/2005 12:52 EDT) Sodium 155(H) 136 - 145 mEq/L [facility] Comment:Performed at [place], [place] 02/15/2005 12:5 2 EDT 02/15/2005 12:54 EDT us Allison Alarcon MD CHEMISTRY & BLOOD GAS ORDERA BLES Final Result Performing Organization Address [facility] de Phone Number [facility] [address] [place] [address] * UA REFLEX (02/15/2005 10:17 EDT) UA Billing Microscopic not indicated. [facility] 02/15/2005 10:1 7 EDT 02/15/2005 10:31 EDT us Allison Alarcon MD URINALYSIS ORDERABLES Final Result Performing Organization Address [facility] Co de Phone Number [facility] [address] [place] [address] * URINALYSIS (02/15/2005 10:17 EDT) Color, UA [facility] Clarity, UA [facility] Glucose, UA NORM [facility] Bilirubin, [facility]A [facility]G [facility] Ketones, UA NEG [facility] Specific [place], Urine 1.005 - 1.02 [facility] [...] URINALYSIS ORDERABLES Final Result Performing Organization Address [facility] de Phone Number [facility] [address] [place] [address] * URINALYSIS (02/15/2005 10:17 EDT) Color, UA Yellow [facility] Clarity, UA Clear [facility] Glucose, UA Norm NORM [facility] Bilirubin, UA Neg [facility]G [facility] Ketones, UA Neg NEG [facility] Specific [place], Urine 1.010 1.005 - 1.02 [facility] [...] URINALYSIS ORDERABLES Final Result Performing Organization Address [facility] de Phone Number [facility] [address] [place] [address] * (ABNORMAL) PHOSPHORUS (02/15/2005 6:20 EDT) Phosphorus 6.2(H) 2.9 - 5.4 mg/dl [facility] Comment:Performed at [place], [place] 02/15/2005 6:20 EDT 02/15/2005 6:34 EDT Allison Alarcon MD CHEMISTRY & BLOOD GAS ORDERA BLES Final Result Performing Organization Address [facility] de Phone Number [facility] [address] [place] [address] * PREALBUMIN (02/15/2005 6:20 EDT) Prealbumin 34 mg/dl [facility] Comment:Slightly lipemic 02/15/2005 6:20 EDT 02/15/2005 6:34 EDT Allison Alarcon MD CHEMISTRY & BLOOD GAS ORDERA BLES Final Result Performing Organization Address [facility] Phone Number [facility] [address] [place] [address] * (ABNORMAL) SODIUM (02/15/2005 6:20 EDT) Sodium 158(HH) 136 - 145 mEq/L [facility] Comment: Sample retested, result confirmed Performed at [place], [place] 02/15/2005 6:20 EDT 02/15/2005 6:34 EDT Allison Alarcon MD CHEMISTRY & BLOOD GAS ORDERA BLES Final Result Performing Organization Address [facility] de Phone Number [facility] [address] [place] [address] * MAGNESIUM (02/15/2005 6:20 EDT) Magnesium 2.2 1.7 - 2.8 mg/dl [facility] Comment:Performed at [place], [place] 02/15/2005 6:20 EDT 02/15/2005 6:34 EDT Allison Alarcon MD CHEMISTRY & BLOOD GAS ORDERA BLES Final Result Performing Organization Address [facility] Co de Phone Number [facility] [address] [place] [address] * (ABNORMAL) LIPID PROFILE (INCLUDES CHOLESTEROL, TRIGLYCERIDES, HDL, LDL) (02/15/2005 6:20 EDT) Cholesterol 283 mg/dl [facility] Comment: Desirable:<200 Borderline:200-239 High Risk:>on=604 Sample retested, result confirmed Triglycerides 958(H) 34 - 165 mg/dl [facility] HDL 39 mg/dl [facility] Comment: Highly Desirable:>60 Desirable:35-60 High Risk:<35 LDL, Calculated Triglyceride greater than 400 mg/dl, LDL calculation invalid. Desirable:<130 Borderline:130- 159 High Risk:>la=403 mg/dl [facility] Chol/HDL Ratio 7.3 [facility] Fasting? Unknown [facility] [place] [place] [place] [facility] 02/15/2005 6:20 EDT 02/15/2005 6:34 EDT us Allison Alarcon MD CHEMISTRY & BLOOD GAS ORDERA BLES Final Result Performing Organization Address [facility] de Phone Number [facility] [address] [place] [address] * CREATININE (02/15/2005 6:20 EDT) Creatinine 0.8 0.6 - 1.2 mg/dl [facility] Comment:Performed at [facility] [place] 02/15/2005 6:20 EDT 02/15/2005 6:34 EDT Allison Alarcon MD HISTORICAL LAB FOR SQ LOAD F inal Result Performing Organization Address [facility] Co de Phone Number [facility] [address] [place] [address] * BUN (02/15/2005 6:20 EDT) BUN 17 8 - 21 mg/dl [facility] Comment:Performed at [place], [place] 02/15/2005 6:20 EDT 02/15/2005 6:34 EDT us Allison Alarcon MD CHEMISTRY & BLOOD GAS ORDERA BLES Final Result Performing Organization Address [facility] Co de Phone Number [facility] [address] [place] [address] * (ABNORMAL) AST (02/15/2005 6:20 EDT) Pathologist [facility] AST 134(H) 16 - 38 U/L [facility] Comment:Performed at [place], [place] 02/15/2005 6:20 EDT 02/15/2005 6:34 EDT us Allison Alarcon MD CHEMISTRY & BLOOD GAS ORDERA BLES Final Result Performing Organization Address [facility] de Phone Number [facility] [address] [place] [address] * (ABNORMAL) ALT (02/15/2005 6:20 EDT) Pathologist [facility] ALT 391(H) 10 - 45 U/L [facility] Comment:Performed at [place], [place] 02/15/2005 6:20 EDT 02/15/2005 6:34 EDT us Allison Alarcon MD CHEMISTRY & BLOOD GAS ORDERA BLES Final Result Performing Organization Address [facility] de Phone Number [facility] [address] [place] [address] * ALKALINE PHOSPHATASE (02/15/2005 6:20 EDT) Total Alkaline Phosphatase 223 130 - 525 U/L [facility] Comment:Performed at [place], [place] 02/15/2005 6:20 EDT 02/15/2005 6:34 EDT us Allison Alarcon MD CHEMISTRY & BLOOD GAS ORDERA BLES Final Result Performing Organization Address [facility] de Phone Number [facility] [address] [place] [address] * SODIUM (02/13/2005 6:25 EDT) Sodium 140 136 - 145 mEq/L [facility] Comment:Performed at [place], [place] 02/13/2005 6:25 EDT 02/13/2005 6:38 EDT us Allison Alarcon MD CHEMISTRY & BLOOD GAS ORDERA BLES Final Result Performing Organization Address [facility] de Phone Number [facility] [address] [place] [address] * (ABNORMAL) SODIUM (02/11/2005 6:50 EDT) Sodium 135(L) 136 - 145 mEq/L [facility] Comment:Performed at [place], [place] 02/11/2005 6:50 EDT 02/11/2005 7:07 EDT us Allison Alarcon MD CHEMISTRY & BLOOD GAS ORDERA BLES Final Result Performing Organization Address [facility] de Phone Number [facility] [address] [place] [address] * (ABNORMAL) SODIUM (02/08/2005 6:40 EDT) Sodium 147(H) 136 - 145 mEq/L [facility] Comment:Performed at [place], [place] 02/08/2005 6:40 EDT 02/08/2005 6:43 EDT Allison Alarcon MD CHEMISTRY & BLOOD GAS ORDERA BLES Final Result Performing Organization Address [facility] Co de Phone Number [facility] [address] [place] [address] * SODIUM (02/07/2005 6:00 EDT) Sodium 145 136 - 145 mEq/L [facility] Comment:Performed at [place], [place] 02/07/2005 6:00 EDT 02/07/2005 6:33 EDT Allison Alarcon MD CHEMISTRY & BLOOD GAS ORDERA BLES Final Result Performing Organization Address [facility] Co de Phone Number [facility] [address] [place] [address] * (ABNORMAL) SODIUM (02/06/2005 7:00 EDT) Sodium 146(H) 136 - 145 mEq/L [facility] Comment: Sample retested, result confirmed Performed at [facility], [place], [place] 02/06/2005 7:00 EDT 02/06/2005 7:03 EDT Allison Alarcon MD CHEMISTRY & BLOOD GAS ORDERA BLES Final Result Performing Organization Address [facility] de Phone Number [facility] [address] [place] [address] * (ABNORMAL) ELECTROLYTES (02/03/2005 10:00 EDT) Sodium 135(L) 136 - 145 mEq/L [facility] Potassium 5.2 3.6 - 5.2 mEq/L [facility] Chloride 96 96 - 110 mEq/L [facility] CO2 27 24 - 32 mEq/L [facility] Comment:Performed at [facility], [place], [place] 02/03/2005 10:0 0 EDT 02/03/2005 10:19 EDT us Allisno Alarcon MD CHEMISTRY & BLOOD GAS ORDERA BLES Final Result Performing Organization Address [facility] Co de Phone Number [facility] [address] [place] [address] * (ABNORMAL) SODIUM (02/01/2005 11:47 EDT) Sodium 134(L) 136 - 145 mEq/L [facility] Comment:Performed at [place], [place] 02/01/2005 11:4 7 EDT 02/01/2005 11:49 EDT Allison Alarcon MD CHEMISTRY & BLOOD GAS ORDERA BLES Final Result Performing Organization Address [facility] Co de Phone Number [facility] [address] [place] [address] * PREALBUMIN (01/30/2005 6:45 EDT) Pathologist [facility] Prealbumin 25 mg/dl [facility] 01/30/2005 6:45 EDT 01/30/2005 7:18 EDT Allison Alarcon MD CHEMISTRY & BLOOD GAS ORDERA BLES Final Result Performing Organization Address [facility] de Phone Number [facility] [address] [place] [address] * ELECTROLYTES (01/30/2005 6:45 EDT) Sodium 144 136 - 145 mEq/L [facility] Potassium 4.4 3.6 - 5.2 mEq/L [facility] Chloride 105 96 - 110 mEq/L [facility] CO2 27 24 - 32 mEq/L [facility] Comment:Performed at [place], [place] 01/30/2005 6:45 EDT 01/30/2005 7:18 EDT Allison Alarcon MD CHEMISTRY & BLOOD GAS ORDERA BLES Final Result Performing Organization Address [facility] de Phone Number [facility] [address] [place] [address] * CREATININE (01/30/2005 6:45 EDT) Creatinine 0.7 0.6 - 1.2 mg/dl [facility] Comment:Performed at [facility], [place], [place] 01/30/2005 6:45 EDT 01/30/2005 7:18 EDT Allison Alarcon MD HISTORICAL LAB FOR SQ LOAD F inal Result Performing Organization Address [facility] Co de Phone Number [facility] [address] [place] [address] * BUN (01/30/2005 6:45 EDT) BUN 12 8 - 21 mg/dl [facility] Comment:Performed at [facility], [place], [place] 01/30/2005 6:45 EDT 01/30/2005 7:18 EDT Allison Alarcon MD CHEMISTRY & BLOOD GAS ORDERA BLES Final Result Performing Organization Address [facility] de Phone Number [facility] [address] [place] [address] * (ABNORMAL) SODIUM (01/28/2005 6:40 EDT) Sodium 151(H) 136 - 145 mEq/L [facility] Comment:Performed at [place], [place] 01/28/2005 6:40 EDT 01/28/2005 6:41 EDT us Allison Alarcon MD CHEMISTRY & BLOOD GAS ORDERA BLES Final Result Performing Organization Address [facility] Co de Phone Number [facility] [address] [place] [address] * (ABNORMAL) SODIUM (01/27/2005 7:10 EDT) Sodium 155(H) 136 - 145 mEq/L [facility] 01/27/2005 7:10 EDT 01/27/2005 7:40 EDT us Allison Alarcon MD CHEMISTRY & BLOOD GAS ORDERA BLES Final Result Performing Organization Address [facility] Co de Phone Number [facility] [address] [place] [address] * (ABNORMAL) SODIUM (01/26/2005 7:45 EDT) Sodium 148(H) 136 - 145 mEq/L [facility] Comment:Heparinized plasma. 01/26/2005 7:45 EDT 01/26/2005 8:47 EDT us Allison Alarcon MD CHEMISTRY & BLOOD GAS ORDERA BLES Final Result Performing Organization Address [facility] de Phone Number [facility] [address] [place] [address] * (ABNORMAL) SODIUM (01/25/2005 11:15 EDT) Sodium 152(H) 136 - 145 mEq/L [facility] Comment:Performed at [place] [place] 01/25/2005 11:1 5 EDT 01/25/2005 11:17 EDT us Allison Alarcon MD CHEMISTRY & BLOOD GAS ORDERA BLES Final Result Performing Organization Address [facility] de Phone Number [facility] [address] [place] [address] * (ABNORMAL) SODIUM (01/25/2005 6:45 EDT) Sodium 153(H) 136 - 145 mEq/L [facility] Comment: Sample retested, result confirmed Performed at [place], [place] 01/25/2005 6:45 EDT 01/25/2005 7:13 EDT us Allison Alarcon MD CHEMISTRY & BLOOD GAS ORDERA BLES Final Result Performing Organization Address [facility] Co de Phone Number [facility] [address] [place] [address] * SODIUM (01/24/2005 6:45 EDT) Sodium 140 136 - 145 mEq/L [facility] Comment:Performed at [place], [place] 01/24/2005 6:45 EDT 01/24/2005 6:53 EDT Allison Alarcon MD CHEMISTRY & BLOOD GAS ORDERA BLES Final Result Performing Organization Address [facility]/ZIP Co de Phone Number [facility] [address] [place] [address] * SODIUM (01/23/2005 6:50 EDT) Sodium 136 136 - 145 mEq/L [facility] Comment:Performed at [place], [place] 01/23/2005 6:50 EDT 01/23/2005 7:20 EDT us Allison Alarcon MD CHEMISTRY & BLOOD GAS ORDERA BLES Final Result Performing Organization Address [facility] de Phone Number [facility] [address] [place] [address] * (ABNORMAL) LIPID PROFILE (INCLUDES CHOLESTEROL, TRIGLYCERIDES, HDL, LDL) (01/23/2005 6:50 EDT) Cholesterol 154 mg/dl [facility] Comment: Desirable:<200 Borderline:200-239 High Risk:>un=082 Triglycerides 426(H) 34 - 165 mg/dl [facility] HDL 32 mg/dl [facility] Comment: Highly Desirable:>60 Desirable:35-60 High Risk:<35 Slightly lipemic LDL, Calculated Triglyceride greater than 400 mg/dl, LDL calculation invalid. Desirable:<130 Borderline:130- 159 High Risk:>gy=[id number] Slightly lipemic mg/dl [facility] Chol/HDL Ratio 4.8 Slightly lipemic [facility] Fasting? Unknown Performed at [place], [place] [facility] 01/23/2005 6:50 EDT 01/23/2005 7:20 EDT Allison Alarcon MD CHEMISTRY & BLOOD GAS ORDERA BLES Final Result Performing Organization Address [facility]/ZIP Co de Phone Number [facility] [address] [place] [address] * (ABNORMAL) AST (01/23/2005 6:50 EDT) AST 44(H) 16 - 38 U/L [facility] Comment:Performed at [place], [place] 01/23/2005 6:50 EDT 01/23/2005 7:20 EDT us Allison Alarcon MD CHEMISTRY & BLOOD GAS ORDERA BLES Final Result Performing Organization Address [facility] de Phone Number [facility] [address] [place] [address] * (ABNORMAL) ALT (01/23/2005 6:50 EDT) Pathologist [facility] ALT 105(H) 10 - 45 U/L [facility] Comment:Performed at [place], [place] 01/23/2005 6:50 EDT 01/23/2005 7:20 EDT us Allison Alarcon MD CHEMISTRY & BLOOD GAS ORDERA BLES Final Result Performing Organization Address [facility] de Phone Number [facility] [address] [place] [address] * ALKALINE PHOSPHATASE (01/23/2005 6:50 EDT) Pathologist [facility] Total Alkaline Phosphatase 192 130 - 525 U/L [facility] Comment:Performed at [place], [place] 01/23/2005 6:50 EDT 01/23/2005 7:20 EDT us Allison Alarcon MD CHEMISTRY & BLOOD GAS ORDERA BLES Final Result Performing Organization Address [facility] Co de Phone Number [facility] [address] [place] [address] * (ABNORMAL) SODIUM (01/22/2005 6:25 EDT) Sodium 135(L) 136 - 145 mEq/L [facility] Comment:Performed at [place], [place] 01/22/2005 6:25 EDT 01/22/2005 6:34 EDT Allison Alarcon MD CHEMISTRY & BLOOD GAS ORDERA BLES Final Result Performing Organization Address [facility] Co de Phone Number [facility] [address] [place] [address] * (ABNORMAL) SODIUM (01/21/2005 16:10 EDT) Sodium 130(L) 136 - 145 mEq/L [facility] Comment:Performed at [place], [place] 01/21/2005 16:1 0 EDT 01/21/2005 16:12 EDT Allison Alarcon MD CHEMISTRY & BLOOD GAS ORDERA BLES Final Result Performing Organization Address [facility] Co de Phone Number [facility] [address] [place] [address] * (ABNORMAL) SODIUM (01/21/2005 6:50 EDT) Sodium 129(L) 136 - 145 mEq/L [facility] Comment:Performed at [place], [place] 01/21/2005 6:50 EDT 01/21/2005 6:59 EDT Allison Alarcon MD CHEMISTRY & BLOOD GAS ORDERA BLES Final Result Performing Organization Address [facility] Co de Phone Number [facility] [address] [place] [address] * BACTERIAL CULTURE, URINE (01/20/2005 13:30 EDT) Specimen Description Urine [facility] Result No growth [facility] Report Status Final [id number] [facility] 01/20/2005 13:3 0 EDT 01/20/2005 16:43 EDT Allison Alarcon MD MICROBIOLOGY - GENERAL ORDER LYNDSEY Final Result Performing Organization Address [facility]/ZIP Co de Phone Number [facility] [address] [place] [address] * (ABNORMAL) UA WITH MICROSCOPIC (01/20/2005 13:30 EDT) Color, UA Yellow [facility] Clarity, UA Clear [facility] Glucose, UA Norm NORM [facility] Bilirubin, UA Neg [facility]G [facility] Ketones, UA Neg NEG [facility] Specific [place], Urine >1.030(H) 1.005 - 1.02 [facility] [...] on urines unrefrig >2hrs or refrig >8hrs. [facility] Mucus, UA Present [facility] Refractometer SG,Urine 1.044(H) 1.005 - 1.02 [facility] Comment:Refractometer specif ic gravity 01/20/2005 13:3 0 EDT 01/20/2005 13:47 EDT us Allison Alarcon MD URINALYSIS ORDERABLES Final Result Performing Organization Address [facility]/ZIP Co de Phone Number [facility] [address] [place] [address] * UA WITH MICROSCOPIC (01/20/2005 13:30 EDT) Color, UA [facility] Clarity, UA [facility] Glucose, UA NORM [facility] Bilirubin, UA NEG [facility] Ketones, UA NEG [facility] Specific [place], Urine 1.005 - 1.02 [facility] [...] URINALYSIS ORDERABLES Final Result Performing Organization Address [facility] Co de Phone Number [facility] [address] [place] [address] * CULTURE IF UA POSITIVE (01/20/2005 13:30 EDT) Pathologist [facility] Culture if Indicated Culture indicated by urinalysis results. [facility] 01/20/2005 13:3 0 EDT 01/20/2005 13:47 EDT Allison Alarcon MD MICROBIOLOGY - GENERAL ORDER LYNDSEY Final Result Performing Organization Address [facility] Co de Phone Number [facility] [address] [place] [address] * SODIUM (01/20/2005 6:30 EDT) Sodium 136 136 - 145 mEq/L [facility] 01/20/2005 6:30 EDT 01/20/2005 7:06 EDT us Allison Alarcon MD CHEMISTRY & BLOOD GAS ORDERA BLES Final Result Performing Organization Address [facility] Co de Phone Number [facility] [address] [place] [address] * SODIUM (01/19/2005 7:45 EDT) Sodium 143 136 - 145 mEq/L [facility] Comment: SHORT SAMPLED Performed at [place], [place] 01/19/2005 7:45 EDT 01/19/2005 7:53 EDT us Allison Alarcon MD CHEMISTRY & BLOOD GAS ORDERA BLES Final Result Performing Organization Address [facility] de Phone Number [facility] [address] [place] [address] * (ABNORMAL) SODIUM (01/18/2005 6:15 EDT) Sodium 135(L) 136 - 145 mEq/L [facility] Comment:Performed at [place], [place] 01/18/2005 6:15 EDT 01/18/2005 6:31 EDT us Allison Alarcon MD CHEMISTRY & BLOOD GAS ORDERA BLES Final Result Performing Organization Address [facility] de Phone Number [facility] [address] [place] [address] * SODIUM (01/17/2005 6:45 EDT) Sodium 141 136 - 145 mEq/L [facility] Comment:Performed at [place], [place] 01/17/2005 6:45 EDT 01/17/2005 6:48 EDT us Allison Alarcon MD CHEMISTRY & BLOOD GAS ORDERA BLES Final Result Performing Organization Address [facility] Co de Phone Number [facility] [address] [place] [address] * (ABNORMAL) LIPID PROFILE (INCLUDES CHOLESTEROL, TRIGLYCERIDES, HDL, LDL) (01/17/2005 6:45 EDT) Cholesterol 151 mg/dl [facility] Comment: Desirable:<200 Borderline:200-239 High Risk:>og=[id number] Triglycerides 425(H) 34 - 165 mg/dl [facility] Comment:Performed at [facility] [place], [place] HDL 26 mg/dl [facility] Comment: Highly Desirable:>60 Desirable:35-60 High Risk:<35 LDL, Calculated Triglyceride greater than 400 mg/dl, LDL calculation invalid. Desirable:<130 Borderline:130- 159 High Risk:>bj=659 mg/dl [facility] Chol/HDL Ratio 5.8 [facility] Fasting? Unknown [facility] 01/17/2005 6:45 EDT 01/17/2005 6:48 EDT us Allison Alarcon MD CHEMISTRY & BLOOD GAS ORDERA BLES Final Result Performing Organization Address [facility] Co de Phone Number [facility] [address] [place] [address] * T4 FREE (01/17/2005 6:45 EDT) Free T4 1.3 0.8 - 1.8 ng/dl [facility] 01/17/2005 6:45 EDT 01/17/2005 6:48 EDT Allison Alarcon MD CHEMISTRY & BLOOD GAS ORDERA BLES Final Result Performing Organization Address [facility] Co de Phone Number [facility] [address] [place] [address] * (ABNORMAL) AST (01/17/2005 6:45 EDT) AST 49(H) 16 - 38 U/L [facility] Comment:Performed at [facility] [place], [place] 01/17/2005 6:45 EDT 01/17/2005 6:48 EDT us Allison Alarcon MD CHEMISTRY & BLOOD GAS ORDERA BLES Final Result Performing Organization Address [facility] de Phone Number [facility] [address] [place] [address] * (ABNORMAL) ALT (01/17/2005 6:45 EDT) ALT 170(H) 10 - 45 U/L [facility] Comment:Performed at [place], [place] 01/17/2005 6:45 EDT 01/17/2005 6:48 EDT us Allison Alarcon MD CHEMISTRY & BLOOD GAS ORDERA BLES Final Result Performing Organization Address [facility] Phone Number [facility] [address] [place] [address] * ALKALINE PHOSPHATASE (01/17/2005 6:45 EDT) Total Alkaline Phosphatase 149 130 - 525 U/L [facility] Comment:Performed at [place], [place] 01/17/2005 6:45 EDT 01/17/2005 6:48 EDT us Allison Alarcon MD CHEMISTRY & BLOOD GAS ORDERA BLES Final Result Performing Organization Address [facility] de Phone Number [facility] [address] [place] [address] * SODIUM (01/16/2005 6:45 EDT) Sodium 137 136 - 145 mEq/L [facility] Comment:Performed at [place], [place] 01/16/2005 6:45 EDT 01/16/2005 7:16 EDT us Allison Alarcon MD CHEMISTRY & BLOOD GAS ORDERA BLES Final Result Performing Organization Address [facility] Co de Phone Number [facility] [address] [place] [address] documented in this encounter Visit Diagnoses Not on filedocumented in this encounter
--- OUTSIDE RECORDS SUMMARY | 2024-07-30 03:04 | XMS_ITS | Encounter Summary ---
Author Organization [facility] Address [address] [place] [address] Care Team Providers Care Implementation Engineer Name Role Phone Yan Demarco MD Primary Care Provider Corin Skinner MD Primary Care Provider Akil Serrano MD Primary Care Provider [phone] Encounter Details Date Type Department Care Team (Late st Contact Info) Description 12/01/2004 Before PRISM Converted Visit (Maple) [facility] - Maple conversion [address] [place] [address] Allison Alarcon MD [address] [place] [phone] Social History Tobacco Use Types Packs/Day Years [...] - ALLISON ALARCON MD /re Voice ID: [id number] Doc ID: [id number] ry liquid anesthetic drops to the ear and see how he responds. BUN and sodium were not drawn today due to an error. As these have been relatively stable, we will wait until tomorrow. PLAN: 1. BUN and sodium tomorrow. 2. Auralgan drops to his right ear. - ALLISON ALARCON MD /re Voice ID: [id number] Doc ID: [id number] documented in this encounter Plan of Treatment Upcoming Encounters Date Type Department Care Team (Late st Contact Info) Description 10/01/2024 13:40 EDT Office Visit [facility] Endocrinology - [facility] [address] [place] [address] Wilder Zaidi, [address] [facility] [address] [place] [address] documented as of this encounter Visit Diagnoses Not on filedocumented in this encounter Care Teams Implementation Engineer Relationship Specialty Start Date End Date Yan Demarco MD [address] [place] [address] PCP - General 08/22/09 02/20/10 Corin Skinner MD [address] [phone] PCP - General 10/24/08 08/21/09 Akil Serrano MD [address] [facility] [address] [place], [place] [address] PCP - General 02/21/10 04/16/11 documented as of this encounter
--- OUTSIDE RECORDS SUMMARY | 2024-07-30 03:04 | XMS_ITS | Encounter Summary ---
Author Organization [facility] Address [address] [place] [address] Care Team Providers Care Help Desk Intern Name Role Phone Yan Demarco MD Primary Care Provider Corin Skinner MD Primary Care Provider [phone] Akil Serrano MD Primary Care Provider [phone] Encounter Details Date Type Department Care Team (Late st Contact Info) Description 12/05/2004 Before PRISM Converted Visit (Maple) [facility] - Maple conversion [address] [place] [address] Allison Alarcon MD [address] [place] [phone] Social History Tobacco Use Types Packs/Day Years [...] - ALLISON ALARCON MD /re Voice ID: [id number] Doc ID: [id number] [facility] - ALLISON ALARCON MD /re Voice ID: [id number] Doc ID: [id number] documented in this encounter Plan of Treatment Upcoming Encounters Date Type Department Care Team (Late st Contact Info) Description 10/01/2024 13:40 EDT Office Visit [facility] Endocrinology - [facility] [address] [place], [place] [id number] Wilder Zaidi, [address] [facility] [address] [place] [address] documented as of this encounter Visit Diagnoses Not on filedocumented in this encounter Care Teams Help Desk Intern Relationship Specialty Start Date End Date Yan Demarco MD [address] [place] [address] PCP - General 08/22/09 02/20/10 Corin Skinner MD [address] [place] [phone] PCP - General 10/24/08 08/21/09 Akil Serrano MD 74 [facility] [address] [place], [place] [address] PCP - General 02/21/10 04/16/11 documented as of this encounter
--- OUTSIDE RECORDS SUMMARY | 2024-07-30 03:04 | XMS_ITS | Encounter Summary ---
Author Organization [facility] Address [address] [place] [address] Care Team Providers Care Mapping Supervisor Name Role Phone Yan Demarco MD Primary Care Provider [phone] Corin Skinner MD Primary Care Provider [phone] Akil Serrano MD Primary Care Provider [phone] Yossi Torres MD Primary Care Provider [phone] Emilee Cody MD Primary Care Provider + Ren Vaz MD Primary Care Provider [phone] Encounter Details Date Type Department Care Team (Late st Contact Info) Description 01/01/2005 Before PRISM Converted Visit (Maple) [facility] Rehabilitation Therapy - [address] [address] Allison Alarcon MD [address] [place] [phone] Social History Tobacco Use Types Packs/Day Years [...] Visit [facility] Endocrinology - [place] [address] Dejuan Wilder Valencia, DO [address] [place] [address] documented as of this encounter [...] on filedocumented in this encounter Care Teams Mapping Supervisor Relationship Specialty Start Date End Date Yan Demarco MD [address] [place] [address] PCP - General 08/22/09 02/20/10 Corin Skinner MD [address] [place] [phone] PCP - General 10/24/08 08/21/09 Akil Serrano MD [address] [facility] [address] [place] [address] PCP - General 02/21/10 04/16/11 Yossi Torres MD [address] [place] [phone] PCP - General 04/17/11 03/14/16 Emilee Cody MD [address] [place] [id number] PCP - General 03/15/16 09/29/18 Ren Vaz MD [address] [place] [address] [place] [address] PCP - General 09/30/18 documented as of this encounter
--- OUTSIDE RECORDS SUMMARY | 2024-07-30 03:04 | XMS_ITS | Encounter Summary ---
Author Organization [facility] Address [address] [place] [address] Care Team Providers Care Quality Controller Name Role Phone Yan Demarco MD Primary Care Provider Corin Skinner MD Primary Care Provider Akil Serrano MD Primary Care Provider [phone] Encounter Details Date Type Department Care Team (Late st Contact Info) Description 11/29/2004 Before PRISM Converted Visit (Maple) [facility] - Maple conversion [address], [place] [address] Raleigh Angelo MD [address] [phone] Social History Tobacco Use Types Packs/Day Years [...] - RALEIGH ANGELO MD /re Voice ID: [id number] Doc ID: [id number] oring electrolytes, now on an every other day schedule. - RALEIGH ANGELO MD /re Voice ID: [id number] Doc ID: [id number] documented in this encounter Plan of Treatment Upcoming Encounters Date Type Department Care Team (Late st Contact Info) Description 10/01/2024 13:40 EDT Office Visit [facility] Endocrinology - [facility] [address] [place] [address] Wilder Zaidi, [address] [facility] [address] [place] [address] documented as of this encounter Visit Diagnoses Not on filedocumented in this encounter Care Teams Quality Controller Relationship Specialty Start Date End Date Yan Demarco MD [address] [place] [phone] PCP - General 08/22/09 02/20/10 Corin Skinner MD [address] [place] [phone] PCP - General 10/24/08 08/21/09 Akil Serrano MD [address] [place] [address] PCP - General 02/21/10 04/16/11 documented as of this encounter
--- OUTSIDE RECORDS SUMMARY | 2024-07-30 03:04 | XMS_ITS | Encounter Summary ---
Author Organization [facility] Address [address] [place] [address] Care Team Providers Care Executive Asst Name Role Phone Yan Demarco MD Primary Care Provider [phone] Corin Skinner MD Primary Care Provider Akil Serrano MD Primary Care Provider [phone] Encounter Details Date Type Department Care Team (Late st Contact Info) Description 11/29/2004 Before PRISM Converted Visit (Maple) [facility] - Maple conversion [address] [place] [address] Allison Alarcon MD [address] [place] [phone] Social History Tobacco Use Types Packs/Day Years [...] subacute rehab facility which is December, at [facility] in [place].Social work has identified there are still a [...] - ALLISON ALARCON MD / Voice ID: [id number] Doc ID: [id number] - ALLISON ALARCON MD /mh Voice ID: [id number] Doc ID: [id number] documented in this encounter Plan of Treatment Upcoming Encounters Date Type Department Care Team (Late st Contact Info) Description 10/01/2024 13:40 EDT Office Visit [facility] Endocrinology - [facility] [address] [place] [address] Wilder Zaidi, [address] [facility] [address] [place] [address] documented as of this encounter Visit Diagnoses Not on filedocumented in this encounter Care Teams Executive Asst Relationship Specialty Start Date End Date Yan Demarco MD [address] [place] [phone] PCP - General 08/22/09 02/20/10 Corin Skinner MD [address] [place] [phone] PCP - General 10/24/08 08/21/09 Akil Serrano MD [address] [place] [address] [address] [place] [address] PCP - General 02/21/10 04/16/11 documented as of this encounter
--- OUTSIDE RECORDS SUMMARY | 2024-07-30 03:04 | XMS_ITS | Encounter Summary ---
Author Organization [facility] Address [address] [place] [address] Care Team Providers Care Manager Acute Name Role Phone Yan Demarco MD Primary Care Provider [phone] Corin Skinner MD Primary Care Provider Akil Serrano MD Primary Care Provider [phone] Encounter Details Date Type Department Care Team (Late st Contact Info) Description 11/27/2004 Before PRISM Converted Visit (Maple) [facility] - Maple conversion [address] [place], [place] [address] Raleigh Angelo MD [address] [phone] Social History Tobacco Use Types Packs/Day Years [...] - RALEIGH ANGELO MD / Voice ID: [id number] Doc ID: [id number] trolytes, and renal function. - ROCKY ANGELO MD / Voice ID: [id number] Doc ID: [id number] documented in this encounter Plan of Treatment Upcoming Encounters Date Type Department Care Team (Late st Contact Info) Description 10/01/2024 13:40 EDT Office Visit [facility] End[facility]ology - [facility] [address] [place] [address] Wilder Zaidi, [address] [facility] [address] [place] [address] documented as of this encounter Visit Diagnoses Not on filedocumented in this encounter Care Teams Manager Acute Relationship Specialty Start Date End Date aYn Demarco MD [address] [place] [address] PCP - General 08/22/09 02/20/10 Corin Skinner MD [address] [place] [phone] PCP - General 10/24/08 08/21/09 Akil Serrano MD [address] [place] [address],[address] [id number] PCP - General 02/21/10 04/16/11 documented as of this encounter
--- OUTSIDE RECORDS SUMMARY | 2024-07-30 03:04 | XMS_ITS | Encounter Summary ---
Author Organization [facility] Address [address] [place] [address] Care Team Providers Care Signal Maintainer Name Role Phone Unavailable Primary Care Provider Unavailabl e Encounter Details Date Type Department Care Team (Late st Contact Info) Description 01/01/2005 4:51 EDT - 01/15/2005 11:59 EDT Hospital Encounter [facility] Pediatric Unit [address] [place] [address] Jodi Parr MD [address] [facility], [address] [phone] Slava Pineda MD Discharge Disposition: [facility] Social History Tobacco Use Types Packs/Day Years [...] left-sided weakness. [facility] from [facility] on November 20, 2004. He had been sent to the [facility] Department because of increased irritability and agitation, [...] date. DISPOSITION: The patient was discharged to [facility] facility. CONDITION AT DISCHARGE: Fair. DISCHARGE INSTRUCTIONS: Per patient family and [facility] facility: Discharge medications: Omeprazole 40 mg PO [...] levels daily and call Dr. Edwards at [facility] if there were any questions regarding his sodium. Free fluid targets would be based on daily sodium levels. The patient has already been followed by Dr. Edwards and he is involvedin his care. [facility] Dr. Edwards when they have any questions regarding endocrine issues for Miguel Angel. Signed by Jodi Parr MD 02/20/2005 07:31 Isabel Tilley, Aleksandra Tilley, [facility] Parr MD= - Isabel Tilley MD P - Job ID: [id number] Document ID: [id number] cc: MD Thad Jones MD Thomas Moseley, [...] Office Visit [facility] Endocrinology - [address] [address] Wilder Zaidi, DO [address] [place] [address] [address] [place] [address] documented as of this encounter [...] since previous examinations. D: ??01/10/05 T: ??01/15/05 /[facility] Procedure Note Jose Armando Barker [...] No other new findings since previous examinations. /[facility] us Wes Borja MD [facility] [place] ORDER[place] Final Resul t * PORTABLE [...]
--- OUTSIDE RECORDS SUMMARY | 2024-07-30 03:04 | XMS_ITS | Encounter Summary ---
Author Organization [facility] Address [address] [place] [address] Care Team Providers Care Tenant Selector Name Role Phone Unavailable Primary Care Provider Unavailabl e Encounter Details Date Type Department Care Team (Latest Contact Info) Description 11/20/2004 12:11 EDT - 12/31/2004 11:59 EDT Hospital Encounter [facility] Rehabilitation Therapy Unit Level 2 [address] [place] [address] Allison Alarcon MD [address] [place] [phone] [facility]: [facility] Social History [...] triglyceride was repeated and continued to be [id number]. The patient was seen further in evaluation [...] Alarcon MD A - LR Job ID: [id number] Document ID: [id number] cc: MD Kris Mccauley MD Christa M Zehle, MD Paul James Zimakas, MD [address] \* MERGEFORMAT Acosta Enriquez MD A - ck Job ID: [id number] Document ID: [id number] cc: MD Acosta Oakley MD Carol L Thayer, [place] [phone] \* MERGEFORMAT Krissy Chamberlain MD D: - Krissy Chamberlain MD P - mo Job ID: Document ID: [id number] cc: Marvin Hernandez MD [facility] [place], [id number] documented in this encounter Discharge Disposition Disposition [...] Alarcon MD A - mt Job ID: [id number] Document ID: [id number] cc: 29 [id number] * Allison Alarcon MD - 12/30/2004 0000 [...] Alarcon MD P - lr Job ID: [id number] Document ID: [id number] cc: * Allison Alarcon [...] Alarcon MD P - re Job ID: [id number] Document ID: [id number] cc: * Wicho Carlton [...] Carlton MD P - lr Job ID: [id number] Document ID: [id number] cc: * Allison Alarcon [...] Alarcon MD A - mt Job ID: [id number] Document ID: [id number] cc: bkmk * Allison Alarcon MD - 12/26/2004 0000 EDT INPATIENT PROGRESS NOTE PT LOC: F002 Service Date: 12/26/2004 DIAGNOSIS: Status post CVAs, status post craniopharyngioma resection. SUBJECTIVE: Patient seeming more restless this morning. Initially indicating pain in his lower belly but it appeared to be more related to a full Depends.natural resource specialist questioned some slight increase from the foot [...] Alarcon MD P - lr Job ID: [id number] Document ID: [id number] cc: * * Allison [...] Alarcon MD A - mt Job ID: [id number] Document ID: [id number] cc: * Allison Alarcon MD - 12/24/2004 0000 EDT INPATIENT PROGRESS NOTE PT LOC: F002 Service Date: 12/24/2004 DIAGNOSIS: Status post CVAs. SUBJECTIVE: [place] team has been noting excellent gains in [...] Alarcon MD P - chelle Job ID: [id number] Document ID: [id number] cc: le * Wicho [...] Carlton MD P - re Job ID: [id number] Document ID: [id number] cc: 24 * Wicho [...] Carlton MD A - mo Job ID: [id number] Document ID: [id number] cc: 6 * Wicho [...] Dr. Castañeda. I also discussed case with [facility] morning and OT aides. Signed by Wicho Carlton MD 12/21/2004 15:23 Nadine Garcia MD Wicho Carlton MD - Wicho Carlton MD A - mo Job ID: [id number] Document ID: [id number] cc: [email or web address] * [place] [...] Castañeda MD P - lr Job ID: [id number] Document ID: [id number] cc: * Wicho Carlton [...] have dictated a letter this morning for conference services coordinator to assist with placement into a subacute [...] Carlton MD P - mo Job ID: [id number] Document ID: [id number] cc: [id number] * [place] Castañeda MD - 12/20/2004 0000 [...] Castañeda MD P - mo Job ID: [id number] Document ID: [id number] cc: P, hyd * [...] Carlton MD P - ss Job ID: [id number] Document ID: [id number] cc: [id number] * [place] [...] Castañeda MD A - mt Job ID: [id number] Document ID: [id number] cc: * [place] Castañdea MD - 12/19/2004 0000 EDT INPATIENT PROGRESS [...] Castañeda MD P - MO Job ID: [id number] Document ID: [id number] cc: * Wicho Carlton MD - 12/18/2004 8449 EDT INPATIENT PROGRESS NOTE PT LOC: F002 [...] Carlton MD P - mo Job ID: [id number] Document ID: [id number] cc: g * [place] [...] Castañeda MD P - mt Job ID: [id number] Document ID: [id number] cc: inst * Wicho [...] Carlton MD P - MT Job ID: [id number] Document ID: [id number] cc: * [place] Castañeda [...] Castañeda MD P - mt Job ID: [id number] Document ID: [id number] cc: * Drew Larson [...] Larson MD P - lr Job ID: [id number] Document ID: [id number] cc: [id number] * Drew Larson MD - 12/15/2004 1939 [...] Larson MD P - lr Job ID: [id number] Document ID: [id number] cc: [facility] CC * Allison Alarcon MD - [...] Alarcon MD A - re Job ID: [id number] Document ID: [id number] cc: *st * Allison Alarcon MD - 12/14/2004 7536 EDT INPATIENT PROGRESS NOTE PT LOC: F002 [...] Alarcon MD P - re Job ID: [id number] Document ID: [id number] cc: [id number]??? * Wicho [...] Carlton MD P - mh Job ID: [id number] Document ID: [id number] cc: kend I * [...] Castañeda MD A - re Job ID: [id number] Document ID: [id number] cc: 24 * [place] [...] Castañeda MD P - ss Job ID: [id number] Document ID: [id number] cc: * [place] Castañeda [...] Castañeda MD P - ss Job ID: [id number] Document ID: [id number] cc: 2 * Allison [...] Consider increasing free water. 2. Supervision on photogrammetric tech decreased to frequent checks. Continue 1:1 with other shifts. (40 minutes total time, greater than 50% care coordination with team and discussion and education with family). Signed by Allison Alarcon MD 12/12/2004 23:51 Sky Hollingsworth MD Allison Alarcon MD - Allison Alarcon MD P - ss Job ID: [id number] Document ID: [id number] cc: t ID: * [...] Castañeda MD A - ss Job ID: [id number] Document ID: [id number] cc: 80 documented in this encounter Plan of Treatment Upcoming Encounters Date Type Department Care Team (Late st Contact Info) Description 10/01/2024 13:40 EDT Office Visit [facility] Endocrinology - [place] [address] [place] [address] Wilder Zaidi, DO [address] [place] [address] documented as of this [...] Doppler interrogation could not be performed adequately. /[facility] Narrative 03/02/2009 14:19 EDT POST OP [...] Doppler interrogation could not be performed adequately. /[facility] us Ermelinda Lee MD IM US ORDERABLES Final Resul t * (ABNORMAL) SODIUM (12/02/2004 16:30 EDT) Sodium 134(L) 136 - 145 mEq/L [facility] 12/02/2004 16:3 0 EDT 12/02/2004 16:36 EDT us Allison Alarcon MD CHEMISTRY & BLOOD GAS ORDERA BLES Final Result [facility] [address] [place] [address] * BUN (12/02/2004 16:30 EDT) BUN 17 8 - 21 mg/dl [facility] 12/02/2004 16:3 0 EDT 12/02/2004 16:36 EDT us Allison Alarcon MD CHEMISTRY & BLOOD GAS ORDERA BLES Final Result [facility] [address] [place] [address] * CT HEAD WO CONTRAST (11/29/2004 14:39 [...] 145 mEq/L [facility] Comment:Performed at [place], [place] 11/29/2004 6:25 EDT 11/29/2004 6:36 EDT Allison Alarcon MD CHEMISTRY & BLOOD GAS ORDERA BLES Final Result [facility] [address] [place] [address] * BUN (11/29/2004 6:25 EDT) BUN 18 8 - 21 mg/dl [facility] Comment:Performed at [place], [place] 11/29/2004 6:25 EDT 11/29/2004 6:36 EDT Allison Alarcon MD CHEMISTRY & BLOOD GAS ORDERA BLES Final Result Performing Organization Address City/[facility]/ZIP Co de Phone Number [facility] [address] [place] [address] * C. DIFFICILE TOXIN (11/28/2004 13:30 EDT) Specimen Description Feces [facility] Result No C.difficil e toxin A or toxin B detected. [facility] Report Status Final [id number] [facility] 11/28/2004 13:3 0 EDT 11/28/2004 16:20 EDT Allison Alarcon MD MICROBIOLOGY - GENERAL ORDER LYNDSEY Final Result Performing Organization Address [facility] Co de Phone Number [facility] [address] [place] [address] * (ABNORMAL) SODIUM (11/28/2004 12:20 EDT) Sodium 134(L) 136 - 145 mEq/L [facility] Comment:Performed at [facility], [place], [place] 11/28/2004 12:2 0 EDT 11/28/2004 12:41 EDT Allison Alarcon MD CHEMISTRY & BLOOD GAS ORDERA BLES Final Result Performing Organization Address [facility] Co de Phone Number [facility] [address] [place] [address] * BUN (11/28/2004 12:20 EDT) BUN 19 8 - 21 mg/dl [facility] Comment:Performed at [facility], [place], [place] 11/28/2004 12:2 0 EDT 11/28/2004 12:41 EDT Allison Alarcon MD CHEMISTRY & BLOOD GAS ORDERA BLES Final Result Performing Organization Address [facility] Co de Phone Number [facility] [address] [place] [address] * SODIUM (11/27/2004 6:15 EDT) Sodium 137 136 - 145 mEq/L [facility] Comment:Performed at [place], [place] 11/27/2004 6:15 EDT 11/27/2004 6:26 EDT us Allison Alarcon MD CHEMISTRY & BLOOD GAS ORDERA BLES Final Result Performing Organization Address [facility]/ZIP Co de Phone Number [facility] [address] [place] [address] * BUN (11/27/2004 6:15 EDT) BUN 21 8 - 21 mg/dl [facility] Comment:Performed at [place], [place] 11/27/2004 6:15 EDT 11/27/2004 6:26 EDT us Allison Alarcon MD CHEMISTRY & BLOOD GAS ORDERA BLES Final Result Performing Organization Address [facility]/ZIP Co de Phone Number [facility] [address] [place] [address] * (ABNORMAL) TSH (11/26/2004 5:50 EDT) TSH 0.15(L) 0.50 - 5.00 uIU/ml [facility] 11/26/2004 5:50 EDT 11/26/2004 6:53 EDT us Allison Alarcon MD CHEMISTRY & BLOOD GAS ORDERA BLES Final Result Performing Organization Address [facility] Co de Phone Number [facility] [address] [place] [address] * SODIUM (11/26/2004 5:50 EDT) Sodium 138 136 - 145 mEq/L [facility] Comment:Performed at [place], [place] 11/26/2004 5:50 EDT 11/26/2004 6:53 EDT us Allison Alarcon MD CHEMISTRY & BLOOD GAS ORDERA BLES Final Result [facility] [address] [place] [address] * T4 FREE (11/26/2004 5:50 EDT) Free T4 1.2 0.8 - 1.8 ng/dl [facility] 11/26/2004 5:50 EDT 11/26/2004 6:53 EDT us Allison Alarcon MD CHEMISTRY & BLOOD GAS ORDERA BLES Final Result Performing Organization Address [facility]/ZIP Co de Phone Number [facility] [address] [place] [address] * BUN (11/26/2004 5:50 EDT) Pathologist [facility] BUN 20 8 - 21 mg/dl [facility] Comment:Performed at [facility] [place], [place] 11/26/2004 5:50 EDT 11/26/2004 6:53 EDT us Allison Alarcon MD CHEMISTRY & BLOOD GAS ORDERA BLES Final Result Performing Organization Address [facility]/ZIP Co de Phone Number [facility] [address] [place] [address] * TESTS ADDED BY PHONE (11/26/2004 5:50 EDT) Tests to be added TSH,FT4 [facility] 11/26/2004 5:50 EDT 11/26/2004 6:53 EDT us Allison Alarcon MD CHEMISTRY & BLOOD GAS ORDERA BLES Final Result [facility] [address] [place] [address] * SODIUM (11/25/2004 15:00 EDT) Sodium 137 136 - 145 mEq/L [facility] 11/25/2004 15:0 0 EDT 11/25/2004 15:12 EDT us Allison Alarcon MD CHEMISTRY & BLOOD GAS ORDERA BLES Final Result Performing Organization Address [facility] de Phone Number [facility] [address] [place] [address] * SODIUM (11/25/2004 6:05 EDT) Sodium 137 136 - 145 mEq/L [facility] Comment:Performed at [place], [place] 11/25/2004 6:05 EDT 11/25/2004 9:31 EDT us Allison Alarcon MD CHEMISTRY & BLOOD GAS ORDERA BLES Final Result Performing Organization Address [facility] de Phone Number [facility] [address] [place] [address] * BUN (11/25/2004 6:05 EDT) BUN 21 8 - 21 mg/dl [facility] Comment:Performed at [place], [place] 11/25/2004 6:05 EDT 11/25/2004 9:31 EDT us Allison Alarcon MD CHEMISTRY & BLOOD GAS ORDERA BLES Final Result Performing Organization Address [facility] de Phone Number [facility] [address] [place] [address] * SODIUM (11/24/2004 6:15 EDT) Sodium 144 136 - 145 mEq/L [facility] Comment:Performed at [place], [place] 11/24/2004 6:15 EDT 11/24/2004 9:58 EDT us Allison Alarcon MD CHEMISTRY & BLOOD GAS ORDERA BLES Final Result Performing Organization Address [facility]/ZIP Co de Phone Number [facility] [address] [place] [address] * (ABNORMAL) BUN (11/24/2004 6:15 EDT) BUN 22(H) 8 - 21 mg/dl [facility] Comment:Performed at [place], [place] 11/24/2004 6:15 EDT 11/24/2004 9:58 EDT us Allison Alarcon MD CHEMISTRY & BLOOD GAS ORDERA BLES Final Result Performing Organization Address [facility] Co de Phone Number [facility] [address] [place] [address] * (ABNORMAL) SODIUM (11/23/2004 5:50 EDT) Sodium 146(H) 136 - 145 mEq/L [facility] Comment:Performed at [place], [place] 11/23/2004 5:50 EDT 11/23/2004 7:26 EDT us Allison Alarcon MD CHEMISTRY & BLOOD GAS ORDERA BLES Final Result Performing Organization Address [facility] de Phone Number [facility] [address] [place] [address] * (ABNORMAL) BUN (11/23/2004 5:50 EDT) BUN 25(H) 8 - 21 mg/dl [facility] Comment:Performed at [place], [place] 11/23/2004 5:50 EDT 11/23/2004 7:26 EDT us Allison Alarcon MD CHEMISTRY & BLOOD GAS ORDERA BLES Final Result Performing Organization Address [facility] Co de Phone Number [facility] [address] [place] [address] * (ABNORMAL) SODIUM (11/22/2004 7:00 EDT) Sodium 147(H) 136 - 145 mEq/L [facility] Comment:Performed at [place], [place] 11/22/2004 7:00 EDT 11/22/2004 7:09 EDT Allison Alarcon MD CHEMISTRY & BLOOD GAS ORDERA BLES Final Result Performing Organization Address [facility] de Phone Number [facility] [address] [place] [address] * CREATININE (11/22/2004 7:00 EDT) Creatinine 0.8 0.6 - 1.2 mg/dl [facility] Comment:Performed at [place], [place] 11/22/2004 7:00 EDT 11/22/2004 7:09 EDT Allison Alarcon MD HISTORICAL LAB FOR SQ LOAD F inal Result Performing Organization Address [facility] de Phone Number [facility] [address] [place] [address] * (ABNORMAL) BUN (11/22/2004 7:00 EDT) BUN 28(H) 8 - 21 mg/dl [facility] Comment:Performed at [place], [place] 11/22/2004 7:00 EDT 11/22/2004 7:09 EDT Allison Alarcon MD CHEMISTRY & BLOOD GAS ORDERA BLES Final Result Performing Organization Address [facility] de Phone Number [facility] [address] [place] [address] * (ABNORMAL) ELECTROLYTES (11/21/2004 6:50 EDT) Sodium 146(H) 136 - 145 mEq/L [facility] Potassium 4.4 3.6 - 5.2 mEq/L [facility] Chloride 105 96 - 110 mEq/L [facility] CO2 33(H) 24 - 32 mEq/L [facility] Comment:Performed at [facility] [employer] [place], [place] 11/21/2004 6:50 EDT 11/21/2004 7:26 EDT Allison Alarcon MD CHEMISTRY & BLOOD GAS ORDERA BLES Final Result Performing Organization Address [facility] de Phone Number [facility] [address] [place] [address] * (ABNORMAL) HEMAGRAM (11/21/2004 6:50 EDT) WBC [...] PLT 259 156 - 312 K/cmm [facility] RDW-CV 16.0 % [facility] 11/21/2004 6:50 EDT 11/21/2004 7:26 EDT us Allison Alarcon MD HEMATOLOGY & PF4 ORDERABLES Final Result Performing Organization Address [facility] de Phone Number [facility] [address] [place] [address] * CREATININE (11/21/2004 6:50 EDT) Creatinine 0.8 0.6 - 1.2 mg/dl [facility] Comment:Performed at [facility] [employer] [place], [place] 11/21/2004 6:50 EDT 11/21/2004 7:26 EDT Allison Alarcon MD HISTORICAL LAB FOR SQ LOAD F inal Result [facility] [address] [place] [address] * (ABNORMAL) BUN (11/21/2004 6:50 EDT) BUN 30(H) 8 - 21 mg/dl [facility] Comment:Performed at [facility] [place], [place] 11/21/2004 6:50 EDT 11/21/2004 7:26 EDT us Allison Alarcon MD CHEMISTRY & BLOOD GAS ORDERA BLES Final Result Performing Organization Address [facility] Co de Phone Number [facility] [address] [place] [address] * SODIUM (11/21/2004 6:00 EDT) Sodium 136 - 145 mEq/L [facility] 11/21/2004 6:00 EDT 11/21/2004 6:41 EDT us Allison Alarcon MD CHEMISTRY & BLOOD GAS ORDERA BLES Final Result Performing Organization Address [facility] Co de Phone Number [facility] [address] [place] [address] documented in this encounter Visit Diagnoses Not on filedocumented in this encounter
--- OUTSIDE RECORDS SUMMARY | 2024-07-30 03:04 | XMS_ITS | Encounter Summary ---
Author Organization [facility] Address [address] [place] [address] Care Team Providers Care Automation Driver Name Role Phone Yan Demarco MD Primary Care Provider [phone] Corin Skinner MD Primary Care Provider Akil Serrano MD Primary Care Provider [phone] Encounter Details Date Type Department Care Team (Late st Contact Info) Description 11/21/2004 Before PRISM Converted Visit ([facility]) [facility] - Maple conversion [address] [place] [address] Kylie Larson MD [address] [place] [phone] Social History Tobacco Use Types Packs/Day Years [...] - KYLIE LARSON MD /re Voice ID: [id number] Doc ID: [id number] eurostimulation to try and wake him up a bit. I will review his medical course with Dr. Castañeda, who will be assisting in endocrine and electrolyte management. I will continue to keep in touch closely with Dr. Edwards, who will spearheading his endocrine management. Full evaluations will take place today to begin neuro rehab. - KYLIE LARSON MD /re Voice ID: [id number] Doc ID: [id number] documented in this encounter Plan of Treatment Upcoming Encounters Date Type Department Care Team (Late st Contact Info) Description 10/01/2024 13:40 EDT Office Visit [facility] Endocrinology - [facility] [address] [place] [address] Wilder Zaidi, DO [address] [place] [address] documented as of this encounter Visit Diagnoses Not on filedocumented in this encounter Care Teams Automation Driver Relationship Specialty Start Date End Date Yan Demarco MD [address] [place] [address] PCP - General 08/22/09 02/20/10 Corin Skinner MD [address] [place] [phone] PCP - General 10/24/08 08/21/09 Akil Serrano MD [address] [place] [address] [address] [place] [address] PCP - General 02/21/10 04/16/11 documented as of this encounter
--- OUTSIDE RECORDS SUMMARY | 2024-07-30 03:04 | XMS_ITS | Encounter Summary ---
Author Organization [facility] Address [address] [place] [address] Care Team Providers Care Satellite Instruction Facilitator Name Role Phone Yan Demarco MD Primary Care Provider [phone] Corin Skinner MD Primary Care Provider Akil Serrano MD Primary Care Provider [phone] Encounter Details Date Type Department Care Team (Late st Contact Info) Description 12/03/2004 Before PRISM Converted Visit (Maple) [facility] - Maple conversion [address] [place] [address] Allison Alarcon MD [address] [place] [phone] Social History Tobacco Use Types Packs/Day Years [...] - ALLISON ALARCON MD /mt Voice ID: [id number] Doc ID: [id number] patient's care and care coordination with team and outside providers.) - ALLISON ALARCON MD /mt Voice ID: [id number] Doc ID: [id number] documented in this encounter Plan of Treatment Upcoming Encounters Date Type Department Care Team (Late st Contact Info) Description 10/01/2024 13:40 EDT Office Visit [facility] Endocrinology - [place] [address] [place], [place] [phone] Wilder Zaidi, DO [address] [place] [address] documented as of this encounter Visit Diagnoses Not on filedocumented in this encounter Care Teams Satellite Instruction Facilitator Relationship Specialty Start Date End Date Yan Demarco MD [address] [place] [address] PCP - General 08/22/09 02/20/10 Corin Skinner MD [address] [place] [phone] PCP - General 10/24/08 08/21/09 Akil Serrano MD [address] [facility] [address] [place] [address] PCP - General 02/21/10 04/16/11 documented as of this encounter
--- OUTSIDE RECORDS SUMMARY | 2024-07-30 03:04 | XMS_ITS | Encounter Summary ---
Author Organization [facility] Address [address] [place] [address] Care Team Providers Care Opener Name Role Phone Yan Demarco MD Primary Care Provider Corin Skinner MD Primary Care Provider Akil Serrano MD Primary Care Provider [phone] Encounter Details Date Type Department Care Team (Late st Contact Info) Description 11/25/2004 Before PRISM Converted Visit (Maple) [facility] - Maple conversion [address] [place] [address] Kylie Larson MD [address] [place] [phone] Social History Tobacco Use Types Packs/Day Years [...] - KYLIE LARSON MD /re Voice ID: [id number]: [id number] aspalpha -KYLIE LARSON MD /re Voice ID: [id number] Doc ID: [id number] documented in this encounter Plan of Treatment Upcoming Encounters Date Type Department Care Team (Late st Contact Info) Description 10/01/2024 13:40 EDT Office Visit [facility] End[facility]ology - [facility] [address] [place] [address] Wilder Zaidi, [address] [facility] [address] [place] [address] documented as of this encounter Visit Diagnoses Not on filedocumented in this encounter Care Teams Opener Relationship Specialty Start Date End Date Yan Demarco MD [address] [place] [address] PCP - General 08/22/09 02/20/10 Corin Skinner MD [address] [place] [phone] PCP - General 10/24/08 08/21/09 Akil Serrano MD [address] [facility] [place] [address] PCP - General 02/21/10 04/16/11 documented as of this encounter
--- OUTSIDE RECORDS SUMMARY | 2024-07-30 03:04 | XMS_ITS | Encounter Summary ---
Author Organization [facility] Address [address] [place] [address] Care Team Providers Care Welding Instructor Name Role Phone Yan Demarco MD Primary Care Provider [phone] Corin Skinner MD Primary Care Provider Akil Serrano MD Primary Care Provider [phone] Encounter Details Date Type Department Care Team (Late st Contact Info) Description 11/26/2004 Before PRISM Converted Visit (Maple) [facility] - Maple conversion [address] [place], [place] [address] [place] Angelo MD [address] [phone] Social History Tobacco Use Types Packs/Day Years [...] - RALEIGH ANGELO MD /mt Voice ID: [id number] Doc ID: [id number] spalpha - RALEIGH ANGELO MD /mt Voice ID: [id number] Doc ID: [id number] documented in this encounter Plan of Treatment Upcoming Encounters Date Type Department Care Team (Late st Contact Info) Description 10/01/2024 13:40 EDT Office Visit [facility] Endocrinology - [address] [phone] Wilder Zaidi, [address] [place] [address] documented as of this encounter Visit Diagnoses Not on filedocumented in this encounter Care Teams Welding Instructor Relationship Specialty Start Date End Date Yan Demarco MD [address] [place] [phone] PCP - General 08/22/09 02/20/10 Corin Skinner MD [address] [place] [phone] PCP - General 10/24/08 08/21/09 Akil Serrano MD [address] [place] [address],[address] [place] [address] PCP - General 02/21/10 04/16/11 documented as of this encounter
--- OUTSIDE RECORDS SUMMARY | 2024-07-30 03:04 | XMS_ITS | Encounter Summary ---
Author Organization [facility] Address [address] [place] [address] Care Team Providers Care Auto Slip Cover Installer Name Role Phone Yan Demarco MD Primary Care Provider Corin Skinner MD Primary Care Provider [phone] Akil Serrano MD Primary Care Provider [phone] Encounter Details Date Type Department Care Team (Late st Contact Info) Description 12/10/2004 Before PRISM Converted Visit (Maple) [facility] - [place] conversion [address] [place] [address] Allison Alarcon MD [address] [place] [phone] Social History Tobacco Use Types Packs/Day Years [...] - ALLISON ALARCON MD /mo Voice ID: [id number] Doc ID: [id number] documented in this encounter Plan of Treatment Upcoming Encounters Date Type Department Care Team (Late st Contact Info) Description 10/01/2024 13:40 EDT Office Visit [facility] Endocrinology - [facility] [address] [place] [address] Wilder Zaidi, 62 [facility] [address] [place] [address] documented as of this encounter Visit Diagnoses Not on filedocumented in this encounter Care Teams Auto Slip Cover Installer Relationship Specialty Start Date End Date Yan Demarco MD [address] [place] [phone] PCP - General 08/22/09 02/20/10 Corin Skinner MD [address] [address] PCP - General 10/24/08 08/21/09 Akil Serrano MD 74 [facility],[address] [address] PCP - General 02/21/10 04/16/11 documented as of this encounter
--- OUTSIDE RECORDS SUMMARY | 2024-07-30 03:04 | XMS_ITS | Encounter Summary ---
Author Organization [facility] Address [address] [place] [address] Care Team Providers Care Foreign Student Adviser Teacher Name Role Phone Yan Demarco MD Primary Care Provider Corin Skinner MD Primary Care Provider Akil Serrano MD Primary Care Provider [phone] Encounter Details Date Type Department Care Team (Late st Contact Info) Description 12/02/2004 Before PRISM Converted Visit ([place]le) [facility] - [place] conversion [address] [place] [address] Allison Alarcon MD [address] [place] [address] Social History Tobacco Use Types Packs/Day Years [...] - ALLISON ALARCON MD /re Voice ID: [id number] Doc ID: [id number] PICC line has clotted off. IV team is recommending a TPA treatment and we are waiting for that to be acquired before we can try to get his labs. Otherwise, the patient is remaining stable. - ALLISON ALARCON MD /re Voice ID: [id number] Doc ID: [id number] documented in this encounter Plan of Treatment Upcoming Encounters Date Type Department Care Team (Late st Contact Info) Description 10/01/2024 13:40 EDT Office Visit [facility] Endocrinology - [facility] [address] [place], [place] [phone] Wilder Zaidi, 62 [facility] [address] [place] [address] documented as of this encounter Visit Diagnoses Not on filedocumented in this encounter Care Teams Foreign Student Adviser Teacher Relationship Specialty Start Date End Date Yan Demarco MD [address] [place] [address] PCP - General 08/22/09 02/20/10 Corin Skinner MD [address] [place] [address] PCP - General 10/24/08 08/21/09 Akil Serrano MD [address] [place] [address],[facility] [address] [place], [place] [address] PCP - General 02/21/10 04/16/11 documented as of this encounter
--- OUTSIDE RECORDS SUMMARY | 2024-07-30 03:04 | XMS_ITS | Encounter Summary ---
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 He will withdraw [...] - 11/20/2004 14:46:57 - ss Voice ID- [id number] Document ID - [id number] cc: SUMMER CHRISTIE MD, REFERRING PHYSICIAN ANCELMO MALLOY MD, REFERRING PHYSICIAN Approved by: KYLIE LARSON MD Attending Physician This document has been electronically signed by KYLIE LARSON MD on 11/21/2004 17:25:21. y. 8. Dr. Castañeda will be consulted to monitor this complicated patient along with us. - 11/20/2004 13:25:35 - KYLIE LARSON MD - 11/20/2004 14:46:57 - ss Voice ID - [id number] Document ID - [id number] cc: ADE MALLOY MD, REFERRING PHYSICIAN SUMMER CHRISTIE MD, REFERRING PHYSICIAN ANCELMO MICHAEL MD Approved by: KYLIE LARSON MD Attending Physician documented in this encounter Plan of Treatment Upcoming Encounters Date Type Department Care Team (Late st Contact Info) Description 10/01/2024 13:40 EDT Office Visit [facility] Endocrinology - [facility] [address] [place], [place] [phone] Wilder Zaidi, 62 [facility] [address] [place] [address] documented as of this encounter Visit Diagnoses Not on filedocumented in this encounter Care Teams Mold Filling Operator Relationship Specialty Start Date End Date Yan Demarco MD [address] [place] [address] PCP - General 08/22/09 02/20/10 Corin Skinner MD [address] [place] [phone] PCP - General 10/24/08 08/21/09 Akil Serrano MD 74 [facility] [address] [place] [address] PCP - General 02/21/10 04/16/11 documented as of this encounter
--- OUTSIDE RECORDS SUMMARY | 2024-07-30 03:04 | XMS_ITS | Encounter Summary ---
Author Organization [facility] Address [address] [place] [address] Care Team Providers Care Franchise Development Manager Name Role Phone Yan Demarco MD Primary Care Provider Corin Skinner MD Primary Care Provider [phone] Akil Serrano MD Primary Care Provider [phone] Encounter Details Date Type Department Care Team (Late st Contact Info) Description 11/26/2004 Before PRISM Converted Visit ([place]le) [facility] - [place] conversion [address] [place] [address] Allison Alarcon MD [address] [place] [address] Social History Tobacco Use Types Packs/Day Years [...] - ALLISON ALARCON MD /chelle Voice ID: [id number] Doc ID: [id number] blish some consistency as far as yes [...] - ALLISON ALARCON MD /chelle Voice ID: [id number] Doc ID: [id number] documented in this encounter Plan of Treatment Upcoming Encounters Date Type Department Care Team (Late st Contact Info) Description 10/01/2024 13:40 EDT Office Visit [facility] Endocrinology - [facility] [address] [place] [address] Wilder Zaidi, 62 [facility] [address] [place] [address] documented as of this encounter Visit Diagnoses Not on filedocumented in this encounter Care Teams Franchise Development Manager Relationship Specialty Start Date End Date Yan Demarco MD [address] [place] [address] PCP - General 08/22/09 02/20/10 Corin Skinner MD [address] [place] [phone] PCP - General 10/24/08 08/21/09 Akil Serrano MD [address] [place] [address] [address] [place] [address] PCP - General 02/21/10 04/16/11 documented as of this encounter
--- OUTSIDE RECORDS SUMMARY | 2024-07-30 03:04 | XMS_ITS | Encounter Summary ---
Author Organization [facility] Address [address] [place] [address] Care Team Providers Care Geology Teacher Name Role Phone Yan Demarco MD Primary Care Provider [phone] Corin Skinner MD Primary Care Provider [phone] Akil Serrano MD Primary Care Provider [phone] Encounter Details Date Type Department Care Team (Late st Contact Info) Description 11/20/2004 Before PRISM Converted Visit ([place]) [facility] - [place] conversion [address] [place] [address] Marvin Gonzalez MD [address] [place] [address] Social History Tobacco Use Types Packs/Day [...] Visit [facility] Endocrinology - [facility] [address] [place] [address] Wilder Zaidi, 62 [facility] [address] [place] [address] documented as of this encounter Visit Diagnoses Not on filedocumented in this encounter Care Teams Geology Teacher Relationship Specialty Start Date End Date Yan Demarco MD [address] [place] [address] PCP - General 08/22/09 02/20/10 Corin Skinner MD [address] [place] [phone] PCP - General 10/24/08 08/21/09 Akil Serrano MD [address] [address] PCP - General 02/21/10 04/16/11 documented as of this encounter
--- OUTSIDE RECORDS SUMMARY | 2024-07-30 03:04 | XMS_ITS | Encounter Summary ---
Author Organization [facility] Address [address] [place] [address] Care Team Providers Care Special Investigator Name Role Phone Yan Demarco MD Primary Care Provider Corin Skinner MD Primary Care Provider Akil Serrano MD Primary Care Provider [phone] Encounter Details Date Type Department Care Team (Late st Contact Info) Description 12/08/2004 Before PRISM Converted Visit ([place]le) [facility] - [place] conversion [address] [place], [place] [address] Raleigh Angelo MD [address] [phone] Social History Tobacco Use Types Packs/Day Years [...] - RALEIGH ANGELO MD /lr Voice ID: [id number] Doc ID: [id number] nthroid, and hydrocortisone. Continue periodic monitoring of electrolytes and renal function. - RALEIGH ANGELO MD /lr Voice ID: [id number] Doc ID: [id number] documented in this encounter Plan of Treatment Upcoming Encounters Date Type Department Care Team (Late st Contact Info) Description 10/01/2024 13:40 EDT Office Visit [facility] Endocrinology - [address] [phone] Wilder Zaidi, [address] [place] [address] [address] [place] [address] documented as of this encounter Visit Diagnoses Not on filedocumented in this encounter Care Teams Special Investigator Relationship Specialty Start Date End Date Yan Demarco MD [address] [place] [address] PCP - General 08/22/09 02/20/10 Corin Skinner MD [address] [place] [address] PCP - General 10/24/08 08/21/09 Akil Serrano MD 74 [facility] [place] [address] PCP - General 02/21/10 04/16/11 documented as of this encounter
--- OUTSIDE RECORDS SUMMARY | 2024-07-30 03:04 | XMS_ITS | Encounter Summary ---
Author Organization [facility] Address [address] [place] [address] Care Team Providers Care Validation Architect Name Role Phone Yan Demarco MD Primary Care Provider Corin Skinner MD Primary Care Provider Akil Serrano MD Primary Care Provider [phone] Encounter Details Date Type Department Care Team (Late st Contact Info) Description 11/28/2004 Before PRISM Converted Visit ([place]le) [facility] - [place] conversion [address] [place], [place] [address] Raleigh Angelo MD [address] [phone] Social History Tobacco Use Types Packs/Day Years [...] - RALEIGH ANGELO MD /lr Voice ID: [id number] Doc ID: [id number] 0Vital signs are stable. The patient is afebrile. Cardiac rhythm is regular. Lung medellin are clear.Abdomen is soft. JVD is not visible. ASSESSMENT AND PLAN: Continue full program activities. Continue gastrostomy tube feedings and fluidadministration. - RALEIGH ANGELO MD /lr Voice ID: [id number] Doc ID: [id number] documented in this encounter Plan of Treatment Upcoming Encounters Date Type Department Care Team (Late st Contact Info) Description 10/01/2024 13:40 EDT Office Visit [facility] Endocrinology - [address] [address] Wilder Zaidi, 62 [facility] [address] [place] [address] documented as of this encounter Visit Diagnoses Not on filedocumented in this encounter Care Teams Validation Architect Relationship Specialty Start Date End Date Yan Demarco MD [address] [place] [address] PCP - General 08/22/09 02/20/10 Corin Skinner MD [address] [place] [phone] PCP - General 10/24/08 08/21/09 Akil Serrano MD 74 [facility],[address] [address] PCP - General 02/21/10 04/16/11 documented as of this encounter
--- OUTSIDE RECORDS SUMMARY | 2024-07-30 03:04 | XMS_ITS | Encounter Summary ---
Author Organization [facility] Address [address] [place] [address] Care Team Providers Care Registration Coordinator Name Role Phone Yan Demarco MD Primary Care Provider Corin Skinner MD Primary Care Provider [phone] Encounter Details Date Type Department Care Team (Late st Contact Info) Description 01/31/2005 Before PRISM Converted Visit ([place]le) [facility] - [place] conversion [address] [place] [address] Wicho Carlton MD [address] [place] [address] Social History Tobacco Use Types [...] Carlton MD P - ss Job ID: [id number] Document ID: [id number] cc: documented in this encounter Plan of Treatment Upcoming Encounters Date Type Department Care Team (Late st Contact Info) Description 10/01/2024 13:40 EDT Office Visit [facility] Endocrinology - [facility] [address] [place] [address] Wilder Zaidi, 62 [facility] [address] [place] [phone] documented as of this encounter Visit Diagnoses Not on filedocumented in this encounter Care Teams Registration Coordinator Relationship Specialty Start Date End Date Yan Demarco MD [address] [place] [address] PCP - General 08/22/09 02/20/10 Corin Skinner MD [address] [place] [phone] PCP - General 10/24/08 08/21/09 documented as of this encounter
--- OUTSIDE RECORDS SUMMARY | 2024-07-30 03:04 | XMS_ITS | Encounter Summary ---
Author Organization [facility] Address [address] [place] [address] Care Team Providers Care Administrative Services Coordinator Name Role Phone Yan Demarco MD Primary Care Provider Corin Skinner MD Primary Care Provider Akil Serrano MD Primary Care Provider [phone] Encounter Details Date Type Department Care Team (Late st Contact Info) Description 11/24/2004 Before PRISM Converted Visit ([place]) [facility] - [place] conversion [address] [place] [address] Kylie Larson MD [address] [place] [phone] Social History Tobacco Use Types Packs/Day Years [...] - KYLIE LARSON MD /re Voice ID: [id number] Doc ID: [id number] in0 - KYLIE LARSON MD /re Voice ID: [id number] Doc ID: [id number] documented in this encounter Plan of Treatment Upcoming Encounters Date Type Department Care Team (Late st Contact Info) Description 10/01/2024 13:40 EDT Office Visit [facility] Endocrinology - [address] [address] Wilder Zaidi, DO 62 [facility] [address] [place] [address] documented as of this encounter Visit Diagnoses Not on filedocumented in this encounter Care Teams Administrative Services Coordinator Relationship Specialty Start Date End Date Yan Demarco MD [address] [place] [address] PCP - General 08/22/09 02/20/10 Corin Skinner MD [address] [place] [phone] PCP - General 10/24/08 08/21/09 Akil Serrano MD [address] [address] PCP - General 02/21/10 04/16/11 documented as of this encounter
--- OUTSIDE RECORDS SUMMARY | 2024-07-30 03:04 | XMS_ITS | Encounter Summary ---
Author Organization [facility] Address [address] [place] [address] Care Team Providers Care Automatic Punch Press Operator Name Role Phone Yan Demarco MD Primary Care Provider Corin Skinner MD Primary Care Provider Akil Serrano MD Primary Care Provider [phone] Encounter Details Date Type Department Care Team (Late st Contact Info) Description 11/28/2004 Before PRISM Converted Visit ([place]le) [facility] - [place] conversion [address] [place] [address] Allison Alarcon MD [address] [place] [phone] Social History Tobacco Use Types Packs/Day Years [...] - ALLISON ALARCON MD /re Voice ID: [id number] Doc ID: [id number] agitation and wailing have to do with pain. Amantadine has been increased, but this is not resulting in a marked change in his overall status. Questionable whether it has increased his agitation. Neurontin is a reasonable medication to start and trial. PLAN: 1. Will start Neurontin 100 mg bid 2. Re-check BUN and sodium tomorrow. - ALLISON ALARCON MD /re Voice ID: [id number] Doc ID: [id number] documented in this encounter Plan of Treatment Upcoming Encounters Date Type Department Care Team (Late st Contact Info) Description 10/01/2024 13:40 EDT Office Visit [facility] Endocrinology - [facility] [address] [place] [address] Wilder Zaidi, DO 62 [facility] [address] [place] [address] documented as of this encounter Visit Diagnoses Not on filedocumented in this encounter Care Teams Automatic Punch Press Operator Relationship Specialty Start Date End Date Yan Demarco MD [address] [place] [address] PCP - General 08/22/09 02/20/10 Corin Skinner MD [address] [place] [address] PCP - General 10/24/08 08/21/09 Akil Serrano MD 74 [facility] [address] [place] [address] PCP - General 02/21/10 04/16/11 documented as of this encounter
--- OUTSIDE RECORDS SUMMARY | 2024-07-30 03:07 | XMS_ITS | Encounter Summary ---
Author Organization [facility] Address [address] [place] [address] Care Team Providers Care Gameplay Programmer Name Role Phone Yan Demarco MD Primary Care Provider [phone] Corin Skinner MD Primary Care Provider Akil Serrano MD Primary Care Provider [phone] Encounter Details Date Type Department Care Team (Late st Contact Info) Description 10/08/2004 Before PRISM Converted Visit ([place]) [facility] - [place] conversion [address] [place] [address] Jose Armando Alejo MD [address] [place] [address] Social History Tobacco Use Types Packs/Day Years [...] JOSE ARMANDO ALEJO MD, ADE MALLOY MD STACKER DRIVER: CONSTANTINO BERMUDEZ MD PREOPERATIVE DIAGNOSIS: Craniopharyngioma cyst. [...] 10/08/2004 14:14:21 - cs Voice ID - [id number] Document ID - [id number] cc: ADE DIAZ MD, REFERRING PHYSICIAN JOSE ARMANDO ALEJO MD, ATTENDING PHYSICIAN This document has been electronically signed by JOSE ARMANDO ALEJO MD on 10/11/2004 15:42:12. documented in this encounter Plan of Treatment Upcoming Encounters Date Type Department Care Team (Late st Contact Info) Description 10/01/2024 13:40 EDT Office Visit [facility] Endocrinology - [facility] [address] [place] [address] Wilder Zaidi, 62 [facility] [address] [place] [address] documented as of this encounter Visit Diagnoses Not on filedocumented in this encounter Care Teams Gameplay Programmer Relationship Specialty Start Date End Date Yan Demarco MD [address] [place] [address] PCP - General 08/22/09 02/20/10 Corin Skinner MD [address] [address] PCP - General 10/24/08 08/21/09 Akil Serrano MD 74 [facility],[address] [address] PCP - General 02/21/10 04/16/11 documented as of this encounter
--- OUTSIDE RECORDS SUMMARY | 2024-07-30 03:07 | XMS_ITS | Encounter Summary ---
Author Organization [facility] Address [address] [place] [address] Care Team Providers Care Dispensing Optician Name Role Phone Unavailable Primary Care Provider Unavailabl e Encounter Details Date Type Department Care Team (Late st Contact Info) Description 10/05/2004 6:16 EST - 11/20/2004 11:59 EDT Hospital Encounter [facility] Pediatric Unit [address], [place] [address] Jodi Parr MD [address] [facility], [address] [phone] Hilton Álvarez MD [address] [place] [phone] Discharge Disposition: [facility] Social History [...] immediate postoperative course. He was transferred to [address] on November 07, 2004. HOSPITAL COURSE: [...] of DDAVP (desmopressin) q.8h. at 0600, 1400 [id number] via his G-tube. His sodiums originally were [...] Jodi Parr MD 02/20/2005 07:31 raj Gonzalez, [facility], [facility] Parr MD Dictated by: Marvin Gonzalez MD Jodi Parr MD - Marvin Gonzalez MD - chelle Job ID: [id number] Document ID: [id number] Re-created from [employer] 01/24/2005 cc: MD Too [...] immediate postoperative course. He was transferred to [address] [facility] on November 07, 2004. HOSPITAL COURSE: . [...] of DDAVP (desmopressin) q.8h. at 0600, 1400 [id number] via his G-tube. His sodiums originally were [...] Marvin Gonzalez MD - chelle Job ID: [id number] Document ID: [id number] Re-created in [employer] 01/29/2005 cc: MD Marvin Ross MD Christa M Zehle, MD Paul James Zimakas, MD documented in this encounter Discharge Disposition Disposition Code Departure Means Destination [facility] documented in this encounter Plan of Treatment Upcoming Encounters Date Type Department Care Team (Late st Contact Info) Description 10/01/2024 13:40 EDT Office Visit [facility] Endocrinology - [place] [address] [place], [place] [id number] Dejuan Wilder Ayalaip, DO [address] [place] [address] documented as [...] S Final Result Performing Organization Address [facility] de Phone Number [facility] [address] [place] [address] * SODIUM (11/19/2004 20:05 EDT) Sodium 145 136 - 145 mEq/L [facility] 11/19/2004 20:0 5 EDT 11/19/2004 20:29 EDT us Jodi Parr MD CHEMISTRY & BLOOD GAS ORDERABLE S Final Result Performing Organization Address [facility] Phone Number [facility] [address] [place] [address] * (ABNORMAL) SODIUM (11/19/2004 8:00 EDT) Sodium 147(H) 136 - 145 mEq/L [facility] Comment:Heparinized plasma. 11/19/2004 8:00 EDT 11/19/2004 8:16 EDT us Jodi Parr MD CHEMISTRY & BLOOD GAS ORDERABLE S Final Result Performing Organization Address [facility] de Phone Number [facility] [address] [place] [address] * SODIUM (11/18/2004 20:00 EDT) Sodium 144 136 - 145 mEq/L [facility] 11/18/2004 20:0 0 EDT 11/18/2004 20:41 EDT us Jodi Parr MD CHEMISTRY & BLOOD GAS ORDERABLE S Final Result Performing Organization Address [facility]/ZIP Co de Phone Number [facility] [address] [place] [address] * (ABNORMAL) SODIUM (11/18/2004 14:00 EDT) Sodium 147(H) 136 - 145 mEq/L [facility] 11/18/2004 14:0 0 EDT 11/18/2004 14:38 EDT us Jodi Parr MD CHEMISTRY & BLOOD GAS ORDERABLE S Final Result Performing Organization Address [facility] de Phone Number [facility] [address] [place] [address] * (ABNORMAL) SODIUM (11/18/2004 8:00 EDT) Sodium 146(H) 136 - 145 mEq/L [facility] 11/18/2004 8:00 EDT 11/18/2004 8:24 EDT us Jodi Parr MD CHEMISTRY & BLOOD GAS ORDERABLE S Final Result Performing Organization Address [facility] de Phone Number [facility] [address] [place] [address] * SODIUM (11/17/2004 20:15 EDT) Sodium 141 136 - 145 mEq/L [facility] 11/17/2004 20:1 5 EDT 11/17/2004 20:46 EDT us Jodi Parr MD CHEMISTRY & BLOOD GAS ORDERABLE S Final Result Performing Organization Address [facility] de Phone Number [facility] [address] [place] [address] * SODIUM (11/17/2004 12:00 EDT) Sodium 142 136 - 145 mEq/L [facility] Comment:Heparinized plasma. 11/17/2004 12:0 0 EDT 11/17/2004 12:37 EDT us Jodi Parr MD CHEMISTRY & BLOOD GAS ORDERABLE S Final Result [facility] [address] [place] [address] * SODIUM (11/17/2004 4:00 EDT) Sodium 140 136 - 145 mEq/L [facility] 11/17/2004 4:00 EDT 11/17/2004 4:01 EDT us Jodi Parr MD CHEMISTRY & BLOOD GAS ORDERABLE S Final Result [facility] [address] [place] [address] * SODIUM (11/16/2004 19:45 EDT) Sodium 141 136 - 145 mEq/L [facility] 11/16/2004 19:4 5 EDT 11/16/2004 20:20 EDT us Jodi Parr MD CHEMISTRY & BLOOD GAS ORDERABLE S Final Result Performing Organization Address City/[facility] de Phone Number [facility] [address] [place] [address] * SODIUM (11/16/2004 11:30 EDT) Sodium 142 136 - 145 mEq/L [facility] 11/16/2004 11:3 0 EDT 11/16/2004 12:18 EDT us Jodi Parr MD CHEMISTRY & BLOOD GAS ORDERABLE S Final Result [facility] [address] [place] [address] * SODIUM (11/16/2004 3:45 EDT) Sodium 136 136 - 145 mEq/L [facility] 11/16/2004 3:45 EDT 11/16/2004 3:52 EDT us Jodi Parr MD CHEMISTRY & BLOOD GAS ORDERABLE S Final Result [facility] [address] [place] [address] * SODIUM (11/15/2004 19:45 EDT) Sodium 139 136 - 145 mEq/L [facility] 11/15/2004 19:4 5 EDT 11/15/2004 20:00 EDT us Jodi Parr MD CHEMISTRY & BLOOD GAS ORDERABLE S Final Result Performing Organization Address City/[facility]/ZIP Co de Phone Number [facility] [address] [place] [address] * SODIUM (11/15/2004 12:00 EDT) Sodium 141 136 - 145 mEq/L [facility] 11/15/2004 12:0 0 EDT 11/15/2004 12:42 EDT us Jodi Parr MD CHEMISTRY & BLOOD GAS ORDERABLE S Final Result Performing Organization Address [facility] de Phone Number [facility] [address] [place] [address] * SODIUM (11/15/2004 4:45 EDT) Sodium 141 136 - 145 mEq/L [facility] 11/15/2004 4:45 EDT 11/15/2004 5:07 EDT us Jodi Parr MD CHEMISTRY & BLOOD GAS ORDERABLE S Final Result Performing Organization Address City/[facility]/ZIP Co de Phone Number [facility] [address] [place] [address] * SODIUM (11/14/2004 20:00 EDT) Sodium 144 136 - 145 mEq/L [facility] 11/14/2004 20:0 0 EDT 11/14/2004 20:20 EDT us Jodi Parr MD CHEMISTRY & BLOOD GAS ORDERABLE S Final Result Performing Organization Address [facility]/State/ZIP Co de Phone Number [facility] [address] [place] [address] * SODIUM (11/14/2004 11:35 EDT) Sodium 141 136 - 145 mEq/L [facility] 11/14/2004 11:3 5 EDT 11/14/2004 12:32 EDT us Jodi Parr MD CHEMISTRY & BLOOD GAS ORDERABLE S Final Result Performing Organization Address [facility] de Phone Number [facility] [address] [place] [address] * SODIUM (11/14/2004 4:00 EDT) Sodium 140 136 - 145 mEq/L [facility] Comment:Heparinized plasma. 11/14/2004 4:00 EDT 11/14/2004 4:32 EDT us Jodi Parr MD CHEMISTRY & BLOOD GAS ORDERABLE S Final Result Performing Organization Address [facility] de Phone Number [facility] [address] [place] [address] * SODIUM (11/13/2004 20:00 EDT) Sodium 142 136 - 145 mEq/L [facility] 11/13/2004 20:0 0 EDT 11/13/2004 20:59 EDT us Jodi Parr MD CHEMISTRY & BLOOD GAS ORDERABLE S Final Result Performing Organization Address [facility] de Phone Number [facility] [address] [place] [address] * SODIUM (11/13/2004 20:00 EDT) Sodium 136 - 145 mEq/L [facility] 11/13/2004 20:0 0 EDT 11/20/2004 12:48 EDT us Jodi Parr MD CHEMISTRY & BLOOD GAS ORDERABLE S Final Result [facility] [address] [place] [address] * SODIUM (11/13/2004 11:55 EDT) Sodium 141 136 - 145 mEq/L [facility] 11/13/2004 11:5 5 EDT 11/13/2004 12:31 EDT us Jodi Parr MD CHEMISTRY & BLOOD GAS ORDERABLE S Final Result Performing Organization Address [facility] de Phone Number [facility] [address] [place] [address] * SODIUM (11/13/2004 4:02 EDT) Sodium 141 136 - 145 mEq/L [facility] 11/13/2004 4:02 EDT 11/13/2004 4:03 EDT us Jodi Parr MD CHEMISTRY & BLOOD GAS ORDERABLE S Final Result Performing Organization Address [facility] de Phone Number [facility] [address] [place] [address] * SODIUM (11/12/2004 19:50 EDT) Sodium 140 136 - 145 mEq/L [facility] 11/12/2004 19:5 0 EDT 11/12/2004 21:02 EDT us Jodi Parr MD CHEMISTRY & BLOOD GAS ORDERABLE S Final Result Performing Organization Address [facility] de Phone Number [facility] [address] [place] [address] * PHOSPHORUS (11/12/2004 11:55 EDT) Phosphorus 4.9 2.9 - 5.4 mg/dl [facility] Comment:Heparinized plasma. 11/12/2004 11:5 5 EDT 11/12/2004 12:09 EDT Jodi Parr MD CHEMISTRY & BLOOD GAS ORDERABLE S Final Result Performing Organization Address [facility] de Phone Number [facility] [address] [place] [address] * PREALBUMIN (11/12/2004 11:55 EDT) Prealbumin 38 mg/dl [facility] 11/12/2004 11:5 5 EDT 11/12/2004 12:09 EDT us Jodi Parr MD CHEMISTRY & BLOOD GAS ORDERABLE S Final Result Performing Organization Address [facility] de Phone Number [facility] [address] [place] [address] * SODIUM (11/12/2004 11:55 EDT) Sodium 138 136 - 145 mEq/L [facility] Comment:Heparinized plasma. 11/12/2004 11:5 5 EDT 11/12/2004 12:09 EDT us Jodi Parr MD CHEMISTRY & BLOOD GAS ORDERABLE S Final Result Performing Organization Address [facility] de Phone Number [facility] [address] [place] [address] * MAGNESIUM (11/12/2004 11:55 EDT) Magnesium 2.1 1.7 - 2.8 mg/dl [facility] Comment:Heparinized plasma. 11/12/2004 11:5 5 EDT 11/12/2004 12:09 EDT us Jodi Parr MD CHEMISTRY & BLOOD GAS ORDERABLE S Final Result Performing Organization Address [facility] de Phone Number [facility] [address] [place] [address] * PHOSPHORUS (11/12/2004 4:00 EDT) Phosphorus 4.9 2.9 - 5.4 mg/dl [facility] 11/12/2004 4:00 EDT 11/12/2004 4:07 EDT us Jodi Parr MD CHEMISTRY & BLOOD GAS ORDERABLE S Final Result Performing Organization Address [facility] de Phone Number [facility] [address] [place] [address] * SODIUM (11/12/2004 4:00 EDT) Sodium 136 136 - 145 mEq/L [facility] 11/12/2004 4:00 EDT 11/12/2004 4:07 EDT us Jodi Parr MD CHEMISTRY & BLOOD GAS ORDERABLE S Final Result Performing Organization Address [facility] de Phone Number [facility] [address] [place] [address] * MAGNESIUM (11/12/2004 4:00 EDT) Magnesium 2.0 1.7 - 2.8 mg/dl [facility] 11/12/2004 4:00 EDT 11/12/2004 4:07 EDT us Jodi Parr MD CHEMISTRY & BLOOD GAS ORDERABLE S Final Result Performing Organization Address [facility] de Phone Number [facility] [address] [place] [address] * T4 FREE (11/12/2004 4:00 EDT) Free T4 0.8 0.8 - 1.8 ng/dl [facility] 11/12/2004 4:00 EDT 11/12/2004 4:07 EDT Jodi Parr MD CHEMISTRY & BLOOD GAS ORDERABLE S Final Result Performing Organization Address City/[facility]/ZIP Co de Phone Number [facility] [address] [place] [address] * CALCIUM (11/12/2004 4:00 EDT) Calcium 9.3 8.5 - 10.5 mg/dl [facility] Calculated Calcium 9.6 8.5 - 10.5 mg/dl [facility] 11/12/2004 4:00 EDT 11/12/2004 4:07 EDT us Jodi Parr MD CHEMISTRY & BLOOD GAS ORDERABLE S Final Result Performing Organization Address [facility] de Phone Number [facility] [address] [place] [address] * ALBUMIN (11/12/2004 4:00 EDT) Albumin 4.1 3.0 - 5.5 g/dl [facility] 11/12/2004 4:00 EDT 11/12/2004 4:07 EDT us Jodi Parr MD CHEMISTRY & BLOOD GAS ORDERABLE S Final Result Performing Organization Address [facility] de Phone Number [facility] [address] [place] [address] * SODIUM (11/11/2004 20:08 EDT) Sodium 137 136 - 145 mEq/L [facility] 11/11/2004 20:0 8 EDT 11/11/2004 20:13 EDT us Jodi Parr MD CHEMISTRY & BLOOD GAS ORDERABLE S Final Result Performing Organization Address [facility] de Phone Number [facility] [address] [place] [address] * SODIUM (11/11/2004 12:00 EDT) Sodium 137 136 - 145 mEq/L [facility] 11/11/2004 12:0 0 EDT 11/11/2004 12:28 EDT us Jodi Parr MD CHEMISTRY & BLOOD GAS ORDERABLE S Final Result Performing Organization Address [facility]/ZIP Co de Phone Number [facility] [address] [place] [address] * (ABNORMAL) SODIUM (11/11/2004 4:00 EDT) Sodium 132(L) 136 - 145 mEq/L [facility] 11/11/2004 4:00 EDT 11/11/2004 4:08 EDT us Jodi Parr MD CHEMISTRY & BLOOD GAS ORDERABLE S Final Result Performing Organization Address [facility] de Phone Number [facility] [address] [place] [address] * (ABNORMAL) SODIUM (11/10/2004 20:45 EDT) Sodium 132(L) 136 - 145 mEq/L [facility] 11/10/2004 20:4 5 EDT 11/10/2004 20:54 EDT us Jodi Parr MD CHEMISTRY & BLOOD GAS ORDERABLE S Final Result Performing Organization Address [facility] de Phone Number [facility] [address] [place] [address] * SODIUM (11/10/2004 11:55 EDT) Sodium 137 136 - 145 mEq/L [facility] 11/10/2004 11:5 5 EDT 11/10/2004 12:53 EDT us Jodi Parr MD CHEMISTRY & BLOOD GAS ORDERABLE S Final Result Performing Organization Address [facility] de Phone Number [facility] [address] [place] [address] * (ABNORMAL) SODIUM (11/10/2004 3:45 EDT) Sodium 132(L) 136 - 145 mEq/L [facility] 11/10/2004 3:45 EDT 11/10/2004 4:11 EDT us Jodi Parr MD CHEMISTRY & BLOOD GAS ORDERABLE S Final Result Performing Organization Address [facility] de Phone Number [facility] [address] [place] [address] * SODIUM (11/09/2004 20:00 EDT) Sodium 136 136 - 145 mEq/L [facility] Comment:Heparinized plasma. 11/09/2004 20:0 0 EDT 11/09/2004 20:25 EDT us Hilton Álvarez MD CHEMISTRY & BLOOD GAS ORDE RABLES Final Result Performing Organization Address [facility] Phone Number [facility] [address] [place] [address] * SODIUM (11/09/2004 13:20 EDT) Sodium 136 136 - 145 mEq/L [facility] Comment:Heparinized plasma. 11/09/2004 13:2 0 EDT 11/09/2004 13:39 EDT us Jodi Parr MD CHEMISTRY & BLOOD GAS ORDERABLE S Final Result Performing Organization Address [facility] de Phone Number [facility] [address] [place] [address] * (ABNORMAL) SODIUM (11/09/2004 4:20 EDT) Sodium 132(L) 136 - 145 mEq/L [facility] Comment:Heparinized plasma. 11/09/2004 4:20 EDT 11/09/2004 5:00 EDT us Hilton Álvarez MD CHEMISTRY & BLOOD GAS ORDE RABLES Final Result [facility] [address] [place] [address] * (ABNORMAL) SODIUM (11/08/2004 19:55 EDT) Sodium 133(L) 136 - 145 mEq/L [facility] 11/08/2004 19:5 5 EDT 11/08/2004 20:26 EDT us Hilton Álvarez MD CHEMISTRY & BLOOD GAS HERMES HANNON Final Result [facility] [address] [place] [address] * (ABNORMAL) SODIUM (11/08/2004 17:00 EDT) Sodium 133(L) 136 - 145 mEq/L [facility] 11/08/2004 17:0 0 EDT 11/08/2004 17:23 EDT us Jodi Parr MD CHEMISTRY & BLOOD GAS ORDERABLE S Final Result [facility] [address] [place] [address] * (ABNORMAL) SODIUM (11/08/2004 12:15 EDT) Sodium 131(L) 136 - 145 mEq/L [facility] 11/08/2004 12:1 5 EDT 11/08/2004 13:58 EDT us Hilton Álvarez MD CHEMISTRY & BLOOD GAS HERMES HANNON Final Result [facility] [address] [place] [address] * (ABNORMAL) SODIUM (11/08/2004 4:00 EDT) Sodium 135(L) 136 - 145 mEq/L [facility] 11/08/2004 4:00 EDT 11/08/2004 5:19 EDT us Hilton Álvarez MD CHEMISTRY & BLOOD GAS ORDE RABLES Final Result Performing Organization Address [facility]/ZIP Co de Phone Number [facility] [address] [place] [address] * (ABNORMAL) SODIUM (11/07/2004 20:29 EDT) Sodium 135(L) 136 - 145 mEq/L [facility] Comment:Heparinized plasma. 11/07/2004 20:2 9 EDT 11/07/2004 20:30 EDT us Hilton Álvarez MD CHEMISTRY & BLOOD GAS ORDE RABLES Final Result Performing Organization Address [facility] de Phone Number [facility] [address] [place] [address] * (ABNORMAL) SODIUM (11/07/2004 12:24 EDT) Sodium 133(L) 136 - 145 mEq/L [facility] Comment:Heparinized plasma. 11/07/2004 12:2 4 EDT 11/07/2004 12:24 EDT us Hilton Álvarez MD CHEMISTRY & BLOOD GAS ORDE RABLES Final Result Performing Organization Address [facility] de Phone Number [facility] [address] [place] [address] * (ABNORMAL) SODIUM (11/07/2004 6:25 EDT) Sodium 133(L) 136 - 145 mEq/L [facility] 11/07/2004 6:25 EDT 11/07/2004 6:26 EDT us Hilton Álvarez MD CHEMISTRY & BLOOD GAS ORDE RABLES Final Result Performing Organization Address [facility]/ZIP Co de Phone Number [facility] [address] [place] [address] * SODIUM (11/06/2004 22:00 EDT) Sodium 136 136 - 145 mEq/L [facility] 11/06/2004 22:0 0 EDT 11/06/2004 22:07 EDT Hilton Álvarez MD CHEMISTRY & BLOOD GAS ORDE RABLES Final Result Performing Organization Address [facility] de Phone Number [facility] [address] [place] [address] * SODIUM (11/06/2004 13:58 EDT) Sodium 138 136 - 145 mEq/L [facility] 11/06/2004 13:5 8 EDT 11/06/2004 13:58 EDT Hilton Álvarez MD CHEMISTRY & BLOOD GAS ORDE RABLES Final Result Performing Organization Address [facility] de Phone Number [facility] [address] [place] [address] * ELECTROLYTES (11/06/2004 9:56 EDT) Sodium 137 136 - 145 mEq/L [facility] Potassium 4.3 3.6 - 5.2 mEq/L [facility] Chloride 97 96 - 110 mEq/L [facility] CO2 30 24 - 32 mEq/L [facility] 11/06/2004 9:56 EDT 11/06/2004 9:56 EDT Hilton Álvarez MD CHEMISTRY & BLOOD GAS ORDE RABLES Final Result Performing Organization Address [facility] de Phone Number [facility] [address] [place] [address] * ELECTROLYTES (11/06/2004 3:22 EDT) Sodium 136 136 - 145 mEq/L [facility] Potassium 4.2 3.6 - 5.2 mEq/L [facility] Chloride 100 96 - 110 mEq/L [facility] CO2 30 24 - 32 mEq/L [facility] 11/06/2004 3:22 EDT 11/06/2004 3:22 EDT Hilton Álvarez MD CHEMISTRY & BLOOD GAS ORDE RABLES Final Result Performing Organization Address [facility] de Phone Number [facility] [address] [place] [address] * ELECTROLYTES (11/05/2004 20:50 EDT) Pathologist [facility] Sodium 137 136 - 145 mEq/L [facility] Potassium 4.2 3.6 - 5.2 mEq/L [facility] Chloride 101 96 - 110 mEq/L [facility] CO2 30 24 - 32 mEq/L [facility] 11/05/2004 20:5 0 EDT 11/05/2004 20:50 EDT Hilton Álvarez MD CHEMISTRY & BLOOD GAS [facility] Final Result Performing Organization Address [facility] de Phone Number [facility] [address] [place] [address] * CT HEAD W/WO CONTRAST (11/05/2004 19:02 [...] Hilton Álvarez MD CHEMISTRY & BLOOD GAS ORDEemrald HANNON Final Result Performing Organization Address [facility] de Phone Number [facility] [address] [place] [address] * SODIUM (11/05/2004 4:34 EDT) Sodium 136 - 145 mEq/L [facility] 11/05/2004 4:34 EDT 11/05/2004 4:34 EDT Hilton Álvarez MD CHEMISTRY & BLOOD GAS ORDEmerald HANNON Final Result Performing Organization Address City/[facility] de Phone Number [facility] [address] [place] [address] * ELECTROLYTES (11/05/2004 4:34 EDT) Sodium 142 136 - 145 mEq/L [facility] Potassium 4.0 3.6 - 5.2 mEq/L [facility] Chloride 106 96 - 110 mEq/L [facility] CO2 29 24 - 32 mEq/L [facility] 11/05/2004 4:34 EDT 11/05/2004 4:34 EDT Hilton Álvarez MD CHEMISTRY & BLOOD GAS ORDE RIDDHI Final Result Performing Organization Address [facility] de Phone Number [facility] [address] [place] [address] * (ABNORMAL) T4 FREE (11/05/2004 4:34 EDT) Free T4 0.6(L) 0.8 - 1.8 ng/dl [facility] 11/05/2004 4:34 EDT 11/05/2004 4:34 EDT Hilton Álvarez MD CHEMISTRY & BLOOD GAS ORDEmerald HANNON Final Result Performing Organization Address [facility] de Phone Number [facility] [address] [place] [address] * (ABNORMAL) ELECTROLYTES (11/04/2004 22:06 EDT) Sodium [...] ORDE RABREBECA Final Result Performing Organization Address [facility]/State/ZIP Co de Phone Number [facility] [address] [place] [address] * ELECTROLYTES (11/04/2004 14:25 EDT) Sodium 143 136 - 145 mEq/L [facility] Potassium 4.2 3.6 - 5.2 mEq/L [facility] Chloride 107 96 - 110 mEq/L [facility] CO2 28 24 - 32 mEq/L [facility] 11/04/2004 14:2 5 EDT 11/04/2004 14:26 EDT Hilton Álvarez MD CHEMISTRY & BLOOD GAS ORDE RABLES Final Result Performing Organization Address [facility] de Phone Number [facility] [address] [place] [address] * SODIUM (11/04/2004 8:25 EDT) Sodium 142 136 - 145 mEq/L [facility] 11/04/2004 8:25 EDT 11/04/2004 8:38 EDT Hilton Álvarez MD CHEMISTRY & BLOOD GAS ORDE RABLES Final Result Performing Organization Address [facility] de Phone Number [facility] [address] [place] [address] * ELECTROLYTES (11/04/2004 4:15 EDT) Sodium 143 136 - 145 mEq/L [facility] Potassium 4.2 3.6 - 5.2 mEq/L [facility] Chloride 104 96 - 110 mEq/L [facility] CO2 28 24 - 32 mEq/L [facility] 11/04/2004 4:15 EDT 11/04/2004 4:15 EDT Hilton Álvarez MD CHEMISTRY & BLOOD GAS ORDE RABLES Final Result Performing Organization Address [facility] de Phone Number [facility] [address] [place] [address] * SODIUM (11/04/2004 0:31 EDT) Sodium 144 136 - 145 mEq/L [facility] 11/04/2004 0:31 EDT 11/04/2004 0:31 EDT Hilton Álvarez MD CHEMISTRY & BLOOD GAS ORDE RABLES Final Result Performing Organization Address [facility] de Phone Number [facility] [address] [place] [address] * ELECTROLYTES (11/03/2004 20:16 EDT) Sodium 144 136 - 145 mEq/L [facility] Potassium 3.8 3.6 - 5.2 mEq/L [facility] Chloride 104 96 - 110 mEq/L [facility] CO2 29 24 - 32 mEq/L [facility] [facility] 11/03/2004 20:1 6 EDT 11/03/2004 20:16 EDT us Hilton Álvarez MD CHEMISTRY & BLOOD GAS ORDE RABLES Final Result Performing Organization Address [facility] de Phone Number [facility] [address] [place] [address] * SODIUM (11/03/2004 16:15 EDT) Sodium 142 136 - 145 mEq/L [facility] 11/03/2004 16:1 5 EDT 11/03/2004 16:30 EDT us Hilton Álvarez MD CHEMISTRY & BLOOD GAS ORDE RABLES Final Result Performing Organization Address City/[facility] de Phone Number [facility] [address] [place] [address] * ELECTROLYTES (11/03/2004 12:21 EDT) Sodium 144 136 - 145 mEq/L [facility] Potassium 3.9 3.6 - 5.2 mEq/L [facility] Chloride 106 96 - 110 mEq/L [facility] CO2 28 24 - 32 mEq/L [facility] 11/03/2004 12:2 1 EDT 11/03/2004 12:21 EDT Hilton Álvarez MD CHEMISTRY & BLOOD GAS ORDE RABLES Final Result Performing Organization Address [facility] de Phone Number [facility] [address] [place] [address] * SODIUM (11/03/2004 9:30 EDT) Sodium 145 136 - 145 mEq/L [facility] Comment:Heparinized plasma. 11/03/2004 9:30 EDT 11/03/2004 9:32 EDT Hilton Álvarez MD CHEMISTRY & BLOOD GAS ORDE RABLES Final Result Performing Organization Address [facility] Phone Number [facility] [address] [place] [address] * ELECTROLYTES (11/03/2004 3:00 EDT) Sodium 142 [...] ORDE RABLES Final Result Performing Organization Address [facility] de Phone Number [facility] [address] [place] [address] * SODIUM (11/03/2004 0:14 EDT) Sodium 144 136 - 145 mEq/L [facility] Comment:Heparinized plasma. 11/03/2004 0:14 EDT 11/03/2004 0:14 EDT Hilton Álvarez MD CHEMISTRY & BLOOD GAS ORDE RABLES Final Result Performing Organization Address [facility] de Phone Number [facility] [address] [place] [address] * (ABNORMAL) ELECTROLYTES (11/02/2004 20:02 EDT) Sodium 146(H) 136 - 145 mEq/L [facility] Potassium 4.1 3.6 - 5.2 mEq/L [facility] Chloride 107 96 - 110 mEq/L [facility] CO2 30 24 - 32 mEq/L [facility] 11/02/2004 20:0 2 EDT 11/02/2004 20:02 EDT Hilton Álvarez MD CHEMISTRY & BLOOD GAS ORDE RIDDHI Final Result Performing Organization Address [facility] de Phone Number [facility] [address] [place] [address] * SODIUM (11/02/2004 16:34 EDT) Sodium 145 136 - 145 mEq/L [facility] 11/02/2004 16:3 4 EDT 11/02/2004 16:34 EDT Hilton Álvarez MD CHEMISTRY & BLOOD GAS ORDE RABLES Final Result Performing Organization Address [facility] de Phone Number [facility] [address] [place] [address] * (ABNORMAL) ELECTROLYTES (11/02/2004 12:32 EDT) Sodium [...] ORDEmerald HANNON Final Result Performing Organization Address [facility] de Phone Number [facility] [address] [place] [address] * SODIUM (11/02/2004 8:39 EDT) Pathologist [facility] Sodium 141 136 - 145 mEq/L [facility] Comment:Heparinized plasma. 11/02/2004 8:39 EDT 11/02/2004 8:39 EDT Hilton Álvarez MD CHEMISTRY & BLOOD GAS ORDE RIDDHI Final Result Performing Organization Address [facility] de Phone Number [facility] [address] [place] [address] * (ABNORMAL) HEMAGRAM (11/02/2004 8:39 EDT) WBC [...] ORDERABLE S Final Result Performing Organization Address [facility] de Phone Number [facility] [address] [place] [address] * BACTERIAL CULTURE, BLOOD (11/02/2004 5:45 EDT) Specimen Description Blood PICC Line [facility] Result No growth [facility] Report Status Final [id number] [facility] 11/02/2004 5:45 EDT 11/02/2004 5:45 EDT Hilton Álvarez MD MICROBIOLOGY - GENERAL ORD ERABLES Final Result [facility] [address] [place] [address] * BACTERIAL CULTURE, URINE (11/02/2004 5:43 EDT) Specimen Description Urine [facility] Result Greater than 100,000 CFU/ml STAPHYLOCOCCU S COAGULASE POSITIVE (STAPHYLOCOCC US AUREUS) [facility] Report Status Final [id number] [facility] 11/02/2004 5:43 EDT 11/02/2004 [...] ORD ERABLES Final Result Performing Organization Address City/[facility]/ZIP Co de Phone Number [facility] [address] [place] [address] * (ABNORMAL) UA WITH MICROSCOPIC (11/02/2004 5:43 EDT) Color, UA Yellow [facility] Clarity, UA Cloudy [facility] Glucose, UA Norm NORM [facility] Bilirubin, UA Neg NEG TRUE ER [facility] Ketones, UA Neg NEG [facility] Specific Bedias, Urine 1.015 1.005 - 1.02 [facility] [...] ORDERABLES Jacquie l Result Performing Organization Address City/[facility]/ZIP Co de Phone Number [facility] [address] [place] [address] * CULTURE IF UA POSITIVE (11/02/2004 5:43 EDT) Culture if Indicated Culture indicated by urinalysis results. [facility] 11/02/2004 5:43 EDT 11/02/2004 5:43 EDT Hilton Álvarez MD MICROBIOLOGY - GENERAL ORD ERABLES Final Result Performing Organization Address City/[facility] de Phone Number [facility] [address] [place] [address] * ELECTROLYTES (11/02/2004 4:10 EDT) Sodium 143 136 - 145 mEq/L [facility] Potassium 4.2 3.6 - 5.2 mEq/L [facility] Chloride 104 96 - 110 mEq/L [facility] CO2 31 24 - 32 mEq/L [facility] 11/02/2004 4:10 EDT 11/02/2004 4:10 EDT us Hilton Álvarez MD CHEMISTRY & BLOOD GAS ORDE RABLES Final Result Performing Organization Address [facility] de Phone Number [facility] [address] [place] [address] * SODIUM (11/02/2004 0:09 EDT) Sodium 143 136 - 145 mEq/L [facility] 11/02/2004 0:09 EDT 11/02/2004 0:09 EDT Hilton Álvarez MD CHEMISTRY & BLOOD GAS ORDE RABLES Final Result Performing Organization Address [facility] de Phone Number [facility] [address] [place] [address] * ELECTROLYTES (11/01/2004 20:00 EDT) Sodium 142 136 - 145 mEq/L [facility] Potassium 4.2 3.6 - 5.2 mEq/L [facility] Chloride 104 96 - 110 mEq/L [facility] CO2 27 24 - 32 mEq/L [facility] 11/01/2004 20:0 0 EDT 11/01/2004 20:30 EDT us Hilton Álvarez MD CHEMISTRY & BLOOD GAS ORDE RABLES Final Result Performing Organization Address [facility] de Phone Number [facility] [address] [place] [address] * SODIUM (11/01/2004 16:19 EDT) Sodium 142 136 - 145 mEq/L [facility] 11/01/2004 16:1 9 EDT 11/01/2004 16:19 EDT Hilton Álvarez MD CHEMISTRY & BLOOD GAS ORDE RABLES Final Result Performing Organization Address [facility] de Phone Number [facility] [address] [place] [address] * SODIUM (11/01/2004 12:28 EDT) Sodium 143 136 - 145 mEq/L [facility] Comment:Heparinized plasma. 11/01/2004 12:2 8 EDT 11/01/2004 12:28 EDT Hilton Álvarez MD CHEMISTRY & BLOOD GAS ORDE RABLES Final Result Performing Organization Address [facility] de Phone Number [facility] [address] [place] [address] * POTASSIUM (11/01/2004 12:28 EDT) Potassium 4.6 3.6 - 5.2 mEq/L [facility] Comment:Heparinized plasma. 11/01/2004 12:2 8 EDT 11/01/2004 12:28 EDT us Hilton Álvarez MD CHEMISTRY & BLOOD GAS ORDE RABLES Final Result Performing Organization Address [facility] de Phone Number [facility] [address] [place] [address] * CO2 (11/01/2004 12:28 EDT) CO2 26 24 - 32 mEq/L [facility] Comment:Heparinized plasma. 11/01/2004 12:2 8 EDT 11/01/2004 12:28 EDT us Hilton Álvarez MD CHEMISTRY & BLOOD GAS ORDE RABLES Final Result Performing Organization Address [facility] de Phone Number [facility] [address] [place] [address] * CHLORIDE (11/01/2004 12:28 EDT) Chloride 107 96 - 110 mEq/L [facility] Comment:Heparinized plasma. 11/01/2004 12:2 8 EDT 11/01/2004 12:28 EDT us Hilton Álvarez MD CHEMISTRY & BLOOD GAS ORDE RABLES Final Result Performing Organization Address [facility] de Phone Number [facility] [address] [place] [address] * TESTS ADDED BY PHONE (11/01/2004 12:28 EDT) Tests to be added STAT K,CL,CO2 [facility] 11/01/2004 12:2 8 EDT 11/01/2004 12:28 EDT us Hilton Álvarez MD CHEMISTRY & BLOOD GAS ORDE RABLES Final Result Performing Organization Address [facility] de Phone Number [facility] [address] [place] [address] * SODIUM (11/01/2004 8:26 EDT) Sodium 143 136 - 145 mEq/L [facility] Comment:Heparinized plasma. 11/01/2004 8:26 EDT 11/01/2004 8:26 EDT us Hilton Álvarez MD CHEMISTRY & BLOOD GAS ORDE RABLES Final Result Performing Organization Address [facility] de Phone Number [facility] [address] [place] [address] * PHENYTOIN (11/01/2004 4:18 EDT) Phenytoin 11.1 [...] ORDE RABLES Final Result Performing Organization Address [facility] Phone Number [facility] [address] [place] [address] * ELECTROLYTES (11/01/2004 4:18 EDT) Sodium 141 [...] ORDE RABLES Final Result Performing Organization Address [facility] de Phone Number [facility] [address] [place] [address] * SODIUM (11/01/2004 2:27 EDT) Sodium 145 136 - 145 mEq/L [facility] Comment:Heparinized plasma. 11/01/2004 2:27 EDT 11/01/2004 2:27 EDT us Hilton Álvarez MD CHEMISTRY & BLOOD GAS ORDE RABLES Final Result Performing Organization Address [facility] de Phone Number [facility] [address] [place] [address] * ELECTROLYTES (11/01/2004 0:10 EDT) Sodium 143 [...] ORDE RABLES Final Result Performing Organization Address [facility] de Phone Number [facility] [address] [place] [address] * SODIUM (10/31/2004 18:48 EDT) Sodium 137 136 - 145 mEq/L [facility] 10/31/2004 18:4 8 EDT 10/31/2004 18:48 EDT us Hilton Álvarez MD CHEMISTRY & BLOOD GAS ORDE RABLES Final Result Performing Organization Address [facility] de Phone Number [facility] [address] [place] [address] * (ABNORMAL) SODIUM (10/31/2004 16:29 EDT) Sodium 133(L) 136 - 145 mEq/L [facility] Comment:Heparinized plasma. 10/31/2004 16:2 9 EDT 10/31/2004 16:29 EDT us Hilton Álvarez MD CHEMISTRY & BLOOD GAS ORDE RABLES Final Result Performing Organization Address [facility] de Phone Number [facility] [address] [place] [address] * (ABNORMAL) ELECTROLYTES (10/31/2004 12:08 EDT) Sodium [...] ORDE RABREBECA Final Result Performing Organization Address [facility] Phone Number [facility] [address] [place] [address] * (ABNORMAL) SODIUM (10/31/2004 8:18 EDT) Sodium 130(L) 136 - 145 mEq/L [facility] 10/31/2004 8:18 EDT 10/31/2004 8:18 EDT Hilton Álvarez MD CHEMISTRY & BLOOD GAS ORDE RABREBECA Final Result Performing Organization Address [facility] de Phone Number [facility] [address] [place] [address] * OSMOLALITY, URINE (10/31/2004 6:28 EDT) Osmolality, Ur 723 MOS/KG [facility] 10/31/2004 6:28 EDT 10/31/2004 6:28 EDT us Hilton Álvarez MD URINALYSIS ORDERABLES Jacquie l Result Performing Organization Address [facility] de Phone Number [facility] [address] [place] [address] * SODIUM, URINE RANDOM (10/31/2004 6:28 EDT) Sodium, Ur 188.0 mEq/L [facility] 10/31/2004 6:28 EDT 10/31/2004 6:28 EDT Hilton Álvarez MD URINALYSIS ORDERABLES Jacquie l Result Performing Organization Address [facility] de Phone Number [facility] [address] [place] [address] * OSMOLALITY (10/31/2004 6:26 EDT) Pathologist [facility] Osmolality Cintia 280 MOS/KG [facility] 10/31/2004 6:26 EDT 10/31/2004 6:26 EDT Hilton Álvarez MD CHEMISTRY & BLOOD GAS ORDE RABREBECA Final Result Performing Organization Address [facility] de Phone Number [facility] [address] [place] [address] * (ABNORMAL) SODIUM (10/31/2004 6:26 EDT) Pathologist [facility] Sodium 128(L) 136 - 145 mEq/L [facility] 10/31/2004 6:26 EDT 10/31/2004 6:26 EDT Hilton Álvarez MD CHEMISTRY & BLOOD GAS ORDE RABREBECA Final Result Performing Organization Address [facility] de Phone Number [facility] [address] [place] [address] * (ABNORMAL) ELECTROLYTES (10/31/2004 4:18 EDT) Sodium 128(L) 136 - 145 mEq/L [facility] Potassium 4.3 3.6 - 5.2 mEq/L [facility] Chloride 91(L) 96 - 110 mEq/L [facility] CO2 28 24 - 32 mEq/L [facility] 10/31/2004 4:18 EDT 10/31/2004 4:18 EDT us Hilton Álvarez MD CHEMISTRY & BLOOD GAS ORDE [facility] Final Result Performing Organization Address City/[facility]/ZIP Co de Phone Number [facility] [address] [place] [address] * (ABNORMAL) HEMAGRAM AND DIFFERENTIAL (10/31/2004 4:18 [...] ORDER LYNDSEY Final Result Performing Organization Address City/[facility]/ZIP Co de Phone Number [facility] [address] [place] [address] * (ABNORMAL) ELECTROLYTES (10/30/2004 20:33 EDT) Sodium 131(L) 136 - 145 mEq/L [facility] Potassium 4.3 3.6 - 5.2 mEq/L [facility] Chloride 94(L) 96 - 110 mEq/L [facility] CO2 29 24 - 32 mEq/L [facility] 10/30/2004 20:3 3 EDT 10/30/2004 20:33 EDT Hilton Álvarez MD CHEMISTRY & BLOOD GAS ORDE RABLES Final Result Performing Organization Address [facility]/ZIP Co de Phone Number [facility] [address] [place] [address] * (ABNORMAL) SODIUM (10/30/2004 16:02 EDT) Sodium 133(L) 136 - 145 mEq/L [facility] 10/30/2004 16:0 2 EDT 10/30/2004 16:02 EDT Hilton Álvarez MD CHEMISTRY & BLOOD GAS ORDE RABLES Final Result Performing Organization Address [facility] de Phone Number [facility] [address] [place] [address] * (ABNORMAL) ELECTROLYTES (10/30/2004 12:09 EDT) Sodium 133(L) 136 - 145 mEq/L [facility] Potassium 3.8 3.6 - 5.2 mEq/L [facility] Chloride 95(L) 96 - 110 mEq/L [facility] CO2 28 24 - 32 mEq/L [facility] 10/30/2004 12:0 9 EDT 10/30/2004 12:09 EDT Hilton Álvarez MD CHEMISTRY & BLOOD GAS ORDE RABLES Final Result Performing Organization Address City/[facility] de Phone Number [facility] [address] [place] [address] * (ABNORMAL) SODIUM (10/30/2004 10:28 EDT) Sodium 132(L) 136 - 145 mEq/L [facility] 10/30/2004 10:2 8 EDT 10/30/2004 10:28 EDT Hilton Álvarez MD CHEMISTRY & BLOOD GAS ORDE RABLES Final Result Performing Organization Address [facility] de Phone Number [facility] [address] [place] [address] * PHENYTOIN (10/30/2004 4:13 EDT) Phenytoin 13.3 [...] ORDE RABLES Final Result Performing Organization Address [facility] de Phone Number [facility] [address] [place] [address] * (ABNORMAL) ELECTROLYTES (10/30/2004 4:13 EDT) Sodium 132(L) 136 - 145 mEq/L [facility] Potassium 4.4 3.6 - 5.2 mEq/L [facility] Chloride 97 96 - 110 mEq/L [facility] CO2 27 24 - 32 mEq/L [facility] 10/30/2004 4:13 EDT 10/30/2004 4:13 EDT Hilton Álvarez MD CHEMISTRY & BLOOD GAS ORDE RABLES Final Result Performing Organization Address [facility] de Phone Number [facility] [address] [place] [address] * (ABNORMAL) HEMAGRAM AND DIFFERENTIAL (10/30/2004 4:13 [...] LYNDSEY Final Result [facility] [address] [place] [address] * (ABNORMAL) ELECTROLYTES (10/30/2004 0:11 EDT) Sodium 135(L) 136 - 145 mEq/L [facility] Potassium 3.7 3.6 - 5.2 mEq/L [facility] Chloride 97 96 - 110 mEq/L [facility] CO2 28 24 - 32 mEq/L [facility] 10/30/2004 0:11 EDT 10/30/2004 0:11 EDT Hilton Álvarez MD CHEMISTRY & BLOOD GAS ORDE RABLES Final Result Performing Organization Address [facility] de Phone Number [facility] [address] [place] [address] * (ABNORMAL) SODIUM (10/30/2004 0:04 EDT) Sodium 131(L) 136 - 145 mEq/L [facility] 10/30/2004 0:04 EDT 10/31/2004 0:04 EDT Hilton Álvarez MD CHEMISTRY & BLOOD GAS ORDE RABLES Final Result Performing Organization Address [facility] de Phone Number [facility] [address] [place] [address] * (ABNORMAL) SODIUM (10/29/2004 22:00 EDT) Sodium 135(L) 136 - 145 mEq/L [facility] 10/29/2004 22:0 0 EDT 10/29/2004 22:00 EDT Hilton Álvarez MD CHEMISTRY & BLOOD GAS ORDE RABLES Final Result Performing Organization Address [facility] Phone Number [facility] [address] [place] [address] * (ABNORMAL) ELECTROLYTES (10/29/2004 18:14 EDT) Sodium 134(L) 136 - 145 mEq/L [facility] Potassium 5.0 3.6 - 5.2 mEq/L [facility] Chloride 99 96 - 110 mEq/L [facility] CO2 27 24 - 32 mEq/L [facility] 10/29/2004 18:1 4 EDT 10/29/2004 18:14 EDT Hilton Álvarez MD CHEMISTRY & BLOOD GAS ORDE RABLES Final Result Performing Organization Address [facility] de Phone Number [facility] [address] [place] [address] * (ABNORMAL) ELECTROLYTES (10/29/2004 16:19 EDT) Sodium [...] ORDE RABLES Final Result Performing Organization Address [facility] de Phone Number [facility] [address] [place] [address] * (ABNORMAL) SODIUM (10/29/2004 12:59 EDT) Sodium 132(L) 136 - 145 mEq/L [facility] Comment:Heparinized plasma. 10/29/2004 12:5 9 EDT 10/29/2004 12:59 EDT Hilton Álvarez MD CHEMISTRY & BLOOD GAS ORDE RABLES Final Result Performing Organization Address [facility] de Phone Number [facility] [address] [place] [address] * (ABNORMAL) ELECTROLYTES (10/29/2004 8:16 EDT) Sodium 135(L) 136 - 145 mEq/L [facility] Potassium 4.2 3.6 - 5.2 mEq/L [facility] Chloride 98 96 - 110 mEq/L [facility] CO2 30 24 - 32 mEq/L [facility] 10/29/2004 8:16 EDT 10/29/2004 8:16 EDT Hilton Álvarez MD CHEMISTRY & BLOOD GAS ORDE RABREBECA Final Result [facility] [address] [place] [address] * (ABNORMAL) SODIUM (10/29/2004 4:11 EDT) Pathologist [facility] Sodium 135(L) 136 - 145 mEq/L [facility] 10/29/2004 4:11 EDT 10/29/2004 4:11 EDT Hilton Álvarez MD CHEMISTRY & BLOOD GAS ORDE RABLES Final Result Performing Organization Address [facility] de Phone Number [facility] [address] [place] [address] * (ABNORMAL) T4 FREE (10/29/2004 4:11 EDT) Free T4 0.5(L) 0.8 - 1.8 ng/dl [facility] 10/29/2004 4:11 EDT 10/29/2004 4:11 EDT Hilton Álvarez MD CHEMISTRY & BLOOD GAS ORDE RABLES Final Result Performing Organization Address City/[facility] de Phone Number [facility] [address] [place] [address] * (ABNORMAL) HEMAGRAM AND DIFFERENTIAL (10/29/2004 4:11 [...] [facility] Neutrophils 4.95 K/cmm [facility] Lymphs 2.02 K/cmm [facility] Monocytes 0.57 K/cmm [facility] Eosinophils 0.09 K/cmm [facility] Basophils 0.03 K/cmm [facility] Type of Diff: Automated [facility] 10/29/2004 4:11 EDT 10/29/2004 4:11 EDT Hilton Álvarez MD PACKAGES & DNA PROBE ORDER LYNDSEY Final Result Performing Organization Address [facility] de Phone Number [facility] [address] [place] [address] * SODIUM (10/29/2004 4:00 EDT) Sodium 136 - 145 mEq/L [facility] 10/29/2004 4:00 EDT 11/12/2004 7:24 EDT Hilton Álvarez MD CHEMISTRY & BLOOD GAS ORDE RABREBECA Final Result Performing Organization Address [facility] de Phone Number [facility] [address] [place] [address] * ELECTROLYTES (10/29/2004 0:06 EDT) Sodium 136 136 - 145 mEq/L [facility] Potassium 4.6 3.6 - 5.2 mEq/L [facility] Chloride 98 96 - 110 mEq/L [facility] CO2 31 24 - 32 mEq/L [facility] 10/29/2004 0:06 EDT 10/29/2004 0:06 EDT Hilton Álvarez MD CHEMISTRY & BLOOD GAS ORDE RABLES Final Result Performing Organization Address [facility] de Phone Number [facility] [address] [place] [address] * SODIUM (10/28/2004 20:20 EDT) Sodium 136 136 - 145 mEq/L [facility] 10/28/2004 20:2 0 EDT 10/28/2004 20:25 EDT Hilton Álvarez MD CHEMISTRY & BLOOD GAS ORDE RABREBECA Final Result Performing Organization Address [facility] de Phone Number [facility] [address] [place] [address] * ELECTROLYTES (10/28/2004 16:32 EDT) Sodium 136 136 - 145 mEq/L [facility] Potassium 4.1 3.6 - 5.2 mEq/L [facility] Chloride 100 96 - 110 mEq/L [facility] CO2 27 24 - 32 mEq/L [facility] 10/28/2004 16:3 2 EDT 10/28/2004 16:37 EDT Hilton Álvarez MD CHEMISTRY & BLOOD GAS ELEAZARE RABLES Final Result Performing Organization Address [facility] de Phone Number [facility] [address] [place] [address] * SODIUM (10/28/2004 12:21 EDT) Sodium 136 136 - 145 mEq/L [facility] Comment:Heparinized plasma. 10/28/2004 12:2 1 EDT 10/28/2004 12:21 EDT Hilton Álvarez MD CHEMISTRY & BLOOD GAS ORDE RABREBECA Final Result Performing Organization Address [facility] de Phone Number [facility] [address] [place] [address] * (ABNORMAL) ELECTROLYTES (10/28/2004 8:53 EDT) Sodium [...] Álvarez MD CHEMISTRY & BLOOD GAS ORDE [facility] Final Result Performing Organization Address [facility] de Phone Number [facility] [address] [place] [address] * PHENYTOIN (10/28/2004 4:41 EDT) Phenytoin 7.0 ug/ml [facility] Calculated Phenytoin 9.7 ug/ml [facility] Comment: Calculated phenytoin is adjusted for albumin level. Phenytoin levels may be further altered by severe renal failure (CrCl<10 ml/min). Consult pharmacy for renal or therapeutic dosing questions. 10/28/2004 4:41 EDT 10/28/2004 4:41 EDT Hilton Álvarez MD CHEMISTRY & BLOOD GAS ORDE [facility] Final Result Performing Organization Address [facility] de Phone Number [facility] [address] [place] [address] * ELECTROLYTES (10/28/2004 4:41 EDT) Sodium 139 136 - 145 mEq/L [facility] Potassium 4.2 3.6 - 5.2 mEq/L [facility] Chloride 99 96 - 110 mEq/L [facility] CO2 25 24 - 32 mEq/L [facility] 10/28/2004 4:41 EDT 10/28/2004 4:41 EDT Hilton Álvarez MD CHEMISTRY & BLOOD GAS ORDE [facility] Final Result [facility] [address] [place] [address] * (ABNORMAL) CREATININE (10/28/2004 4:41 EDT) Pathologist [facility] Creatinine 0.5(L) 0.6 - 1.2 mg/dl [facility] 10/28/2004 4:41 EDT 10/28/2004 4:41 EDT us Hilton Álvarez MD HISTORICAL LAB FOR SQ LOAD Final Result Performing Organization Address [facility] de Phone Number [facility] [address] [place] [address] * (ABNORMAL) HEMAGRAM AND DIFFERENTIAL (10/28/2004 4:41 EDT) [facility] WBC 8.20 4.5 - 13.0 K/cmm [facility] [...] ORDER LYNDSEY Final Result Performing Organization Address [facility] de Phone Number [facility] [address] [place] [address] * BUN (10/28/2004 4:41 EDT) BUN 17 8 - 21 mg/dl [facility] 10/28/2004 4:41 EDT 10/28/2004 4:41 EDT Hilton Álvarez MD CHEMISTRY & BLOOD GAS ORDE RABREBECA Final Result Performing Organization Address [facility] Phone Number [facility] [address] [place] [address] * (ABNORMAL) ELECTROLYTES (10/28/2004 0:20 EDT) Sodium 134(L) 136 - 145 mEq/L [facility] Potassium 4.8 3.6 - 5.2 mEq/L [facility] Chloride 98 96 - 110 mEq/L [facility] CO2 29 24 - 32 mEq/L [facility] 10/28/2004 0:20 EDT 10/28/2004 0:42 EDT Hilton Álvarez MD CHEMISTRY & BLOOD GAS ORDE RABLES Final Result Performing Organization Address [facility] de Phone Number [facility] [address] [place] [address] * SODIUM (10/27/2004 20:52 EDT) Sodium 136 136 - 145 mEq/L [facility] Comment:Heparinized plasma. 10/27/2004 20:5 2 EDT 10/27/2004 20:52 EDT Hilton Álvarez MD CHEMISTRY & BLOOD GAS ORDE RABLES Final Result Performing Organization Address [facility] de Phone Number [facility] [address] [place] [address] * ELECTROLYTES (10/27/2004 16:02 EDT) Sodium 136 [...] ORDE RABLES Final Result Performing Organization Address [facility] de Phone Number [facility] [address] [place] [address] * (ABNORMAL) SODIUM (10/27/2004 12:49 EDT) Sodium 135(L) 136 - 145 mEq/L [facility] 10/27/2004 12:4 9 EDT 10/27/2004 12:49 EDT Hilton Álvarez MD CHEMISTRY & BLOOD GAS ORDE RABLES Final Result Performing Organization Address [facility] de Phone Number [facility] [address] [place] [address] * (ABNORMAL) ELECTROLYTES (10/27/2004 8:21 EDT) Sodium 137 136 - 145 mEq/L [facility] Potassium 3.4(L) 3.6 - 5.2 mEq/L [facility] Chloride 112(H) 96 - 110 mEq/L [facility] CO2 21(L) 24 - 32 mEq/L [facility] 10/27/2004 8:21 EDT 10/27/2004 8:21 EDT Hilton Álvarez MD CHEMISTRY & BLOOD GAS ORDE RABLES Final Result Performing Organization Address [facility] de Phone Number [facility] [address] [place] [address] * PHENYTOIN (10/27/2004 4:18 EDT) Phenytoin 10.6 [...] ORDE RABLES Final Result Performing Organization Address [facility] de Phone Number [facility] [address] [place] [address] * SODIUM (10/27/2004 4:18 EDT) Pathologist [facility] Sodium 137 136 - 145 mEq/L [facility] 10/27/2004 4:18 EDT 10/27/2004 4:18 EDT Hilton Álvarez MD CHEMISTRY & BLOOD GAS ORDE RABLES Final Result Performing Organization Address [facility] de Phone Number [facility] [address] [place] [address] * (ABNORMAL) CREATININE (10/27/2004 4:18 EDT) Creatinine 0.5(L) 0.6 - 1.2 mg/dl [facility] 10/27/2004 4:18 EDT 10/27/2004 4:18 EDT Hilton Álvarez MD HISTORICAL LAB FOR SQ LOAD Final Result [facility] [address] [place] [address] * (ABNORMAL) HEMAGRAM AND DIFFERENTIAL (10/27/2004 4:18 [...] LYNDSEY Final Result [facility] [address] [place] [address] * BUN (10/27/2004 4:18 EDT) BUN 13 8 - 21 mg/dl [facility] 10/27/2004 4:18 EDT 10/27/2004 4:18 EDT us Hilton Álvarez MD CHEMISTRY & BLOOD GAS ORDE RABLES Final Result Performing Organization Address [facility]/ZIP Co de Phone Number [facility] [address] [place] [address] * ELECTROLYTES (10/27/2004 2:28 EDT) Sodium 136 136 - 145 mEq/L [facility] Potassium 4.6 3.6 - 5.2 mEq/L [facility] Chloride 101 96 - 110 mEq/L [facility] CO2 28 24 - 32 mEq/L [facility] 10/27/2004 2:28 EDT 10/27/2004 2:28 EDT us Hilton Álvarez MD CHEMISTRY & BLOOD GAS ORDE RABLES Final Result Performing Organization Address City/[facility] de Phone Number [facility] [address] [place] [address] * SODIUM (10/26/2004 20:40 EDT) Sodium 138 136 - 145 mEq/L [facility] 10/26/2004 20:4 0 EDT 10/26/2004 20:52 EDT us Hilton Álvarez MD CHEMISTRY & BLOOD GAS ORDE RABLES Final Result Performing Organization Address City/[facility]/ZIP Co de Phone Number [facility] [address] [place] [address] * ELECTROLYTES (10/26/2004 16:01 EDT) Sodium 137 136 - 145 mEq/L [facility] Potassium 4.2 3.6 - 5.2 mEq/L [facility] Chloride 104 96 - 110 mEq/L [facility] CO2 27 24 - 32 mEq/L [facility] 10/26/2004 16:0 1 EDT 10/26/2004 16:01 EDT Hilton Álvarez MD CHEMISTRY & BLOOD GAS ORDE RABLES Final Result Performing Organization Address [facility] de Phone Number [facility] [address] [place] [address] * SODIUM (10/26/2004 12:39 EDT) Sodium 138 136 - 145 mEq/L [facility] Comment:Heparinized plasma. 10/26/2004 12:3 9 EDT 10/26/2004 12:39 EDT Hilton Álvarez MD CHEMISTRY & BLOOD GAS ORDE RABLES Final Result Performing Organization Address [facility] de Phone Number [facility] [address] [place] [address] * MAGNESIUM (10/26/2004 8:05 EDT) Magnesium 2.4 1.7 - 2.8 mg/dl [facility] Comment:Heparinized plasma. 10/26/2004 8:05 EDT 10/26/2004 8:05 EDT Hilton Álvarez MD CHEMISTRY & BLOOD GAS ORDE RABLES Final Result Performing Organization Address [facility] de Phone Number [facility] [address] [place] [address] * ELECTROLYTES (10/26/2004 8:05 EDT) Sodium 138 [...] ORDE RABREBECA Final Result Performing Organization Address [facility] de Phone Number [facility] [address] [place] [address] * PHENYTOIN (10/26/2004 3:53 EDT) Phenytoin 13.6 ug/ml [facility] Comment:Heparinized plasma. Calculated Phenytoin 20.0 ug/ml [facility] Comment: Calculated phenytoin is adjusted for albumin level. Phenytoin levels may be further altered by severe renal failure (CrCl<10 ml/min). Consult pharmacy for renal or therapeutic dosing questions. Heparinized plasma. 10/26/2004 3:53 EDT 10/26/2004 3:53 EDT Hilton Álvarez MD CHEMISTRY & BLOOD GAS ORDE RIDDHI Final Result Performing Organization Address [facility] Phone Number [facility] [address] [place] [address] * (ABNORMAL) SODIUM (10/26/2004 3:53 EDT) Sodium 134(L) 136 - 145 mEq/L [facility] Comment:Heparinized plasma. 10/26/2004 3:53 EDT 10/26/2004 3:53 EDT Hilton Álvarez MD CHEMISTRY & BLOOD GAS ORDE RABLES Final Result Performing Organization Address [facility] de Phone Number [facility] [address] [place] [address] * (ABNORMAL) CREATININE (10/26/2004 3:53 EDT) Creatinine 0.5(L) 0.6 - 1.2 mg/dl [facility] Comment:Heparinized plasma. 10/26/2004 3:53 EDT 10/26/2004 3:53 EDT us Hilton Álvarez MD HISTORICAL LAB FOR SQ LOAD Final Result Performing Organization Address [facility]/ZIP Co de Phone Number [facility] [address] [place] [address] * (ABNORMAL) HEMAGRAM AND DIFFERENTIAL (10/26/2004 3:53 EDT) Pathologist [facility] WBC 12.68 4.5 - 13.0 K/cmm [facility] [...] ORDER LYNDSEY Final Result Performing Organization Address City/[facility]/ZIP Co de Phone Number [facility] [address] [place] [address] * BUN (10/26/2004 3:53 EDT) BUN 18 8 - 21 mg/dl [facility] Comment:Heparinized plasma. 10/26/2004 3:53 EDT 10/26/2004 3:53 EDT Hilton Álvarez MD CHEMISTRY & BLOOD GAS ORDE RABLES Final Result Performing Organization Address [facility] de Phone Number [facility] [address] [place] [address] * (ABNORMAL) ELECTROLYTES (10/26/2004 0:15 EDT) Sodium 135(L) 136 - 145 mEq/L [facility] Potassium 3.8 3.6 - 5.2 mEq/L [facility] Chloride 100 96 - 110 mEq/L [facility] CO2 27 24 - 32 mEq/L [facility] 10/26/2004 0:15 EDT 10/26/2004 0:15 EDT Hilton Álvarez MD CHEMISTRY & BLOOD GAS ORDE RABLES Final Result Performing Organization Address [facility] de Phone Number [facility] [address] [place] [address] * SODIUM (10/25/2004 20:41 EDT) Sodium 139 136 - 145 mEq/L [facility] 10/25/2004 20:4 1 EDT 10/25/2004 20:41 EDT Hilton Álvarez MD CHEMISTRY & BLOOD GAS ORDE RABLES Final Result Performing Organization Address [facility] de Phone Number [facility] [address] [place] [address] * ELECTROLYTES (10/25/2004 17:25 EDT) Sodium 137 136 - 145 mEq/L [facility] Potassium 3.9 3.6 - 5.2 mEq/L [facility] Chloride 100 96 - 110 mEq/L [facility] CO2 28 24 - 32 mEq/L [facility] 10/25/2004 17:2 5 EDT 10/25/2004 17:27 EDT Hilton Álvarez MD CHEMISTRY & BLOOD GAS ORDE RABLES Final Result Performing Organization Address [facility] de Phone Number [facility] [address] [place] [address] * SODIUM (10/25/2004 12:15 EDT) Sodium 137 136 - 145 mEq/L [facility] Comment:Heparinized plasma. 10/25/2004 12:1 5 EDT 10/25/2004 12:32 EDT Hilton Álvarez MD CHEMISTRY & BLOOD GAS ORDE RABLES Final Result Performing Organization Address [facility] Phone Number [facility] [address] [place] [address] * ELECTROLYTES (10/25/2004 8:30 EDT) Sodium 136 [...] ORDE RABLES Final Result Performing Organization Address [facility] de Phone Number [facility] [address] [place] [address] * TOTAL BILIRUBIN (10/25/2004 4:13 EDT) Bilirubin, Total <0.5 0.0 - 1.4 mg/dl [facility] 10/25/2004 4:13 EDT 10/25/2004 4:13 EDT Hilton Álvarez MD CHEMISTRY & BLOOD GAS ORDE RABLES Final Result Performing Organization Address [facility] de Phone Number [facility] [address] [place] [address] * PHOSPHORUS (10/25/2004 4:13 EDT) Phosphorus 2.9 2.9 - 5.4 mg/dl [facility] 10/25/2004 4:13 EDT 10/25/2004 4:13 EDT Hilton Álvarez MD CHEMISTRY & BLOOD GAS ORDE RABLES Final Result Performing Organization Address [facility] de Phone Number [facility] [address] [place] [address] * PHENYTOIN (10/25/2004 4:13 EDT) Phenytoin 12.2 [...] ORDE RABLES Final Result Performing Organization Address [facility] de Phone Number [facility] [address] [place] [address] * MAGNESIUM (10/25/2004 4:13 EDT) Magnesium 1.8 1.7 - 2.8 mg/dl [facility] 10/25/2004 4:13 EDT 10/25/2004 4:13 EDT Hilton Álvarez MD CHEMISTRY & BLOOD GAS ORDE RABREBECA Final Result Performing Organization Address [facility] de Phone Number [facility] [address] [place] [address] * (ABNORMAL) ELECTROLYTES (10/25/2004 4:13 EDT) Sodium 140 136 - 145 mEq/L [facility] Potassium 3.4(L) 3.6 - 5.2 mEq/L [facility] Chloride 112(H) 96 - 110 mEq/L [facility] CO2 18(L) 24 - 32 mEq/L [facility] 10/25/2004 4:13 EDT 10/25/2004 4:13 EDT Hilton Álvarez MD CHEMISTRY & BLOOD GAS ORDE RABREBECA Final Result Performing Organization Address [facility] de Phone Number [facility] [address] [place] [address] * (ABNORMAL) CREATININE (10/25/2004 4:13 EDT) Creatinine 0.4(L) 0.6 - 1.2 mg/dl [facility] 10/25/2004 4:13 EDT 10/25/2004 4:13 EDT Hilton Álvarez MD HISTORICAL LAB FOR SQ LOAD Final Result Performing Organization Address [facility] de Phone Number [facility] [address] [place] [address] * (ABNORMAL) HEMAGRAM AND DIFFERENTIAL (10/25/2004 4:13 [...] ORDER LYNDSEY Final Result Performing Organization Address City/[facility]/ZIP Co de Phone Number [facility] [address] [place] [address] * (ABNORMAL) CALCIUM (10/25/2004 4:13 EDT) Calcium 7.1(L) 8.5 - 10.5 mg/dl [facility] Calculated Calcium 8.9 8.5 - 10.5 mg/dl [facility] 10/25/2004 4:13 EDT 10/25/2004 4:13 EDT Hilton Álvarez MD CHEMISTRY & BLOOD GAS ORDE [facility]ENCOM[facility] Final Result Performing Organization Address City/[facility]/ZIP Co de Phone Number [facility] [address] [place] [address] * BUN (10/25/2004 4:13 EDT) BUN 14 8 - 21 mg/dl [facility] 10/25/2004 4:13 EDT 10/25/2004 4:13 EDT us Hilton Álvarez MD CHEMISTRY & BLOOD GAS ORDE RABLES Final Result [facility] [address] [place] [address] * (ABNORMAL) AST (10/25/2004 4:13 EDT) AST 179(H) 16 - 38 U/L [facility] 10/25/2004 4:13 EDT 10/25/2004 4:13 EDT us Hilton Álvarez MD CHEMISTRY & BLOOD GAS ORDE RABLES Final Result Performing Organization Address [facility] de Phone Number [facility] [address] [place] [address] * (ABNORMAL) ALT (10/25/2004 4:13 EDT) ALT 493(H) 10 - 45 U/L [facility] 10/25/2004 4:13 EDT 10/25/2004 4:13 EDT us Hilton Álvarez MD CHEMISTRY & BLOOD GAS ORDE RABLES Final Result Performing Organization Address [facility] de Phone Number [facility] [address] [place] [address] * (ABNORMAL) ALKALINE PHOSPHATASE (10/25/2004 4:13 EDT) Total Alkaline Phosphatase 90(L) 130 - 525 U/L [facility] 10/25/2004 4:13 EDT 10/25/2004 4:13 EDT us Hilton Ávlarez MD CHEMISTRY & BLOOD GAS ORDE RABLES Final Result Performing Organization Address City/[facility]/ZIP Co de Phone Number [facility] [address] [place] [address] * (ABNORMAL) ELECTROLYTES (10/25/2004 0:07 EDT) Sodium 140 136 - 145 mEq/L [facility] Potassium 3.3(L) 3.6 - 5.2 mEq/L [facility] Chloride 110 96 - 110 mEq/L [facility] CO2 24 24 - 32 mEq/L [facility] 10/25/2004 0:07 EDT 10/25/2004 0:07 EDT Hilton Álvarez MD CHEMISTRY & BLOOD GAS ORDE RABLES Final Result Performing Organization Address City/[facility]/ZIP Co de Phone Number [facility] [address] [place] [address] * SODIUM (10/24/2004 20:14 EDT) Sodium 139 136 - 145 mEq/L [facility] 10/24/2004 20:1 4 EDT 10/24/2004 20:14 EDT Hilton Álvarez MD CHEMISTRY & BLOOD GAS ORDE RABLES Final Result Performing Organization Address City/[facility] de Phone Number [facility] [address] [place] [address] * PHOSPHORUS (10/24/2004 16:01 EDT) Phosphorus 2.9 2.9 - 5.4 mg/dl [facility] 10/24/2004 16:0 1 EDT 10/24/2004 16:06 EDT Hilton Álvarez MD CHEMISTRY & BLOOD GAS ORDE RABLES Final Result Performing Organization Address City/[facility] de Phone Number [facility] [address] [place] [address] * ELECTROLYTES (10/24/2004 16:01 EDT) Sodium 140 136 - 145 mEq/L [facility] Potassium 3.8 3.6 - 5.2 mEq/L [facility] Chloride 108 96 - 110 mEq/L [facility] CO2 27 24 - 32 mEq/L [facility] 10/24/2004 16:0 1 EDT 10/24/2004 16:06 EDT Hilton Álvarez MD CHEMISTRY & BLOOD GAS ORDE RABLES Final Result Performing Organization Address [facility] de Phone Number [facility] [address] [place] [address] * SODIUM (10/24/2004 12:05 EDT) Sodium 142 136 - 145 mEq/L [facility] 10/24/2004 12:0 5 EDT 10/24/2004 12:05 EDT Hilton Álvarez MD CHEMISTRY & BLOOD GAS ORDE RABLES Final Result Performing Organization Address [facility] de Phone Number [facility] [address] [place] [address] * (ABNORMAL) ELECTROLYTES (10/24/2004 10:36 EDT) Sodium [...] ORDE RABLES Final Result Performing Organization Address [facility] de Phone Number [facility] [address] [place] [address] * SODIUM (10/24/2004 8:01 EDT) Sodium 140 136 - 145 mEq/L [facility] 10/24/2004 8:01 EDT 10/24/2004 8:01 EDT Hilton Álvarez MD CHEMISTRY & BLOOD GAS ORDE RABLES Final Result Performing Organization Address [facility] Phone Number [facility] [address] [place] [address] * SODIUM (10/24/2004 6:07 EDT) Sodium 136 - 145 mEq/L [facility] 10/24/2004 6:07 EDT 10/24/2004 6:07 EDT Hilton Álvarez MD CHEMISTRY & BLOOD GAS ORDE RABLES Final Result Performing Organization Address [facility] Phone Number [facility] [address] [place] [address] * (ABNORMAL) ELECTROLYTES (10/24/2004 6:07 EDT) Sodium 140 136 - 145 mEq/L [facility] Comment:Heparinized plasma. Potassium 3.4(L) 3.6 - 5.2 mEq/L [facility] Comment:Heparinized plasma. Chloride 105 96 - 110 mEq/L [facility] Comment:Heparinized plasma. CO2 27 24 - 32 mEq/L [facility] Comment:Heparinized plasma. 10/24/2004 6:07 EDT 10/24/2004 6:07 EDT Hilton Álvarez MD CHEMISTRY & BLOOD GAS ORDE RABLES Final Result Performing Organization Address [facility] de Phone Number [facility] [address] [place] [address] * (ABNORMAL) PHENYTOIN (10/24/2004 4:07 EDT) Phenytoin [...] ORDE RABLES Final Result Performing Organization Address [facility] de Phone Number [facility] [address] [place] [address] * SODIUM (10/24/2004 4:07 EDT) Sodium 138 136 - 145 mEq/L [facility] Comment:Heparinized plasma. 10/24/2004 4:07 EDT 10/24/2004 4:07 EDT Hilton Álvarez MD CHEMISTRY & BLOOD GAS ORDE RABLES Final Result Performing Organization Address [facility] Phone Number [facility] [address] [place] [address] * (ABNORMAL) CREATININE (10/24/2004 4:07 EDT) Creatinine 0.5(L) 0.6 - 1.2 mg/dl [facility] Comment:Heparinized plasma. 10/24/2004 4:07 EDT 10/24/2004 4:07 EDT Hilton Álvarez MD HISTORICAL LAB FOR SQ LOAD Final Result Performing Organization Address [facility] de Phone Number [facility] [address] [place] [address] * (ABNORMAL) HEMAGRAM AND DIFFERENTIAL (10/24/2004 4:07 [...] ORDER LYNDSEY Final Result Performing Organization Address [facility] de Phone Number [facility] [address] [place] [address] * BUN (10/24/2004 4:07 EDT) BUN 15 8 - 21 mg/dl [facility] Comment:Heparinized plasma. 10/24/2004 4:07 EDT 10/24/2004 4:07 EDT us Hilton Álvarez MD CHEMISTRY & BLOOD GAS ORDE RABLES Final Result Performing Organization Address [facility] de Phone Number [facility] [address] [place] [address] * (ABNORMAL) ELECTROLYTES (10/24/2004 2:23 EDT) Sodium [...] ORDE RABLES Final Result Performing Organization Address [facility] Phone Number [facility] [address] [place] [address] * SODIUM (10/24/2004 2:12 EDT) Sodium 136 - 145 mEq/L [facility] 10/24/2004 2:12 EDT 10/24/2004 2:22 EDT Hilton Álvarez MD CHEMISTRY & BLOOD GAS ORDE RABLES Final Result Performing Organization Address [facility] Phone Number [facility] [address] [place] [address] * SODIUM (10/24/2004 0:47 EDT) Sodium 141 136 - 145 mEq/L [facility] Comment:Heparinized plasma. 10/24/2004 0:47 EDT 10/24/2004 0:47 EDT Hilton Álvarez MD CHEMISTRY & BLOOD GAS ORDE RABLES Final Result Performing Organization Address [facility] de Phone Number [facility] [address] [place] [address] * (ABNORMAL) GLUCOSE, GLUCOMETER (10/24/2004 0:12 EDT) Glucose, Fingerstick 145(H) 70 - 110 mg/dl [facility] [employer] Supervisor ID [id number] Test Performed by Nursing Services [facility] 10/24/2004 0:12 EDT 10/25/2004 0:24 EDT Hilton Álvarez MD CHEMISTRY & BLOOD GAS ORDE RABLES Final Result Performing Organization Address [facility] de Phone Number [facility] [address] [place] [address] * (ABNORMAL) ELECTROLYTES (10/23/2004 22:07 EDT) Sodium 141 136 - 145 mEq/L [facility] Potassium 2.9(LL) 3.6 - 5.2 mEq/L [facility] Chloride 107 96 - 110 mEq/L [facility] CO2 27 24 - 32 mEq/L [facility] 10/23/2004 22:0 7 EDT 10/23/2004 22:07 EDT Hilton Álvarez MD CHEMISTRY & BLOOD GAS ORDE RABLES Final Result Performing Organization Address [facility] de Phone Number [facility] [address] [place] [address] * (ABNORMAL) SODIUM (10/23/2004 20:02 EDT) Sodium 146(H) 136 - 145 mEq/L [facility] 10/23/2004 20:0 2 EDT 10/23/2004 20:02 EDT Hilton Álvarez MD CHEMISTRY & BLOOD GAS ORDE RABLES Final Result Performing Organization Address [facility] de Phone Number [facility] [address] [place] [address] * (ABNORMAL) ELECTROLYTES (10/23/2004 17:40 EDT) Sodium 146(H) 136 - 145 mEq/L [facility] Potassium 3.2(L) 3.6 - 5.2 mEq/L [facility] Chloride 110 96 - 110 mEq/L [facility] CO2 28 24 - 32 mEq/L [facility] 10/23/2004 17:4 0 EDT 10/23/2004 17:40 EDT us Hilton Álvarez MD CHEMISTRY & BLOOD GAS ORDEmerald RIDDHI Final Result [facility] [address] [place] [address] * CT HEAD WO CONTRAST (10/23/2004 15:29 [...] since previous, as is the sinus thickening. [facility] Narrative 03/06/2009 9:26 EDT H/O AKINETIC MUTISM [...] since previous, as is the sinus thickening. /[facility] Hilton Álvarez MD IMG CT ORDERABLES Final [...] HANNON Final Result [facility] [address] [place] [address] * (ABNORMAL) SODIUM (10/23/2004 14:07 EDT) Sodium 146(H) 136 - 145 mEq/L [facility] Comment:Slight hemolysis 10/23/2004 14:0 7 EDT 10/23/2004 14:07 EDT Hilton Álvarez MD CHEMISTRY & BLOOD GAS ORDE RABLES Final Result Performing Organization Address City/State/[facility] de Phone Number [facility] [address] [place] [address] * (ABNORMAL) ELECTROLYTES (10/23/2004 11:54 EDT) Sodium [...] ORDE RIDDHI Final Result Performing Organization Address [facility] de Phone Number [facility] [address] [place] [address] * (ABNORMAL) SODIUM (10/23/2004 10:00 EDT) Sodium 149(H) 136 - 145 mEq/L [facility] Comment:Heparinized plasma. 10/23/2004 10:0 0 EDT 10/23/2004 10:00 EDT Hilton Álvarez MD CHEMISTRY & BLOOD GAS ORDE RABREBECA Final Result Performing Organization Address [facility] de Phone Number [facility] [address] [place] [address] * (ABNORMAL) ELECTROLYTES (10/23/2004 7:51 EDT) Sodium 149(H) 136 - 145 mEq/L [facility] Potassium 3.3(L) 3.6 - 5.2 mEq/L [facility] Chloride 116(H) 96 - 110 mEq/L [facility] CO2 26 24 - 32 mEq/L [facility] 10/23/2004 7:51 EDT 10/23/2004 7:51 EDT us Hilton Álvarez MD CHEMISTRY & BLOOD GAS ORDEmerald HANNON Final Result Performing Organization Address [facility] Phone Number [facility] [address] [place] [address] * (ABNORMAL) SODIUM (10/23/2004 6:00 EDT) Sodium 150(H) 136 - 145 mEq/L [facility] 10/23/2004 6:00 EDT 10/23/2004 6:21 EDT us Hilton Álvarez MD CHEMISTRY & BLOOD GAS ORDEmerald RABREBECA Final Result Performing Organization Address [facility] Phone Number [facility] [address] [place] [address] * (ABNORMAL) ELECTROLYTES (10/23/2004 4:00 EDT) Sodium 150(H) 136 - 145 mEq/L [facility] Potassium 3.6 3.6 - 5.2 mEq/L [facility] Chloride 118(H) 96 - 110 mEq/L [facility] CO2 26 24 - 32 mEq/L [facility] 10/23/2004 4:00 EDT 10/23/2004 4:17 EDT us Hilton Álvarez MD CHEMISTRY & BLOOD GAS ORDEmerald HANNON Final Result Performing Organization Address [facility] de Phone Number [facility] [address] [place] [address] * (ABNORMAL) CREATININE (10/23/2004 4:00 EDT) Creatinine 0.5(L) 0.6 - 1.2 mg/dl [facility] 10/23/2004 4:00 EDT 10/23/2004 4:17 EDT us Hilton Álvarez MD HISTORICAL LAB FOR SQ LOAD Final Result Performing Organization Address [facility]/State/ZIP Co de Phone Number [facility] [address] [place] [address] * (ABNORMAL) HEMAGRAM AND DIFFERENTIAL (10/23/2004 4:00 [...] K/cmm [facility] RDW-CV 16.6 % [facility] Neutrophils 78.0 % [facility] [...] LYNDSEY Final Result [facility] [address] [place] [address] * BUN (10/23/2004 4:00 EDT) BUN 16 8 - 21 mg/dl [facility] 10/23/2004 4:00 EDT 10/23/2004 4:17 EDT Hilton Álvarez MD CHEMISTRY & BLOOD GAS ORDE RABLES Final Result Performing Organization Address City/[facility] de Phone Number [facility] [address] [place] [address] * (ABNORMAL) SODIUM (10/23/2004 2:00 EDT) Sodium 153(H) 136 - 145 mEq/L [facility] 10/23/2004 2:00 EDT 10/23/2004 2:13 EDT Hilton Álvarez MD CHEMISTRY & BLOOD GAS ORDE RABLES Final Result Performing Organization Address [facility] de Phone Number [facility] [address] [place] [address] * (ABNORMAL) ELECTROLYTES (10/23/2004 0:00 EDT) Sodium 151(H) 136 - 145 mEq/L [facility] Potassium 3.9 3.6 - 5.2 mEq/L [facility] Chloride 117(H) 96 - 110 mEq/L [facility] CO2 27 24 - 32 mEq/L [facility] 10/23/2004 10/23/2004 0:3 8 EDT Hilton Álvarez MD CHEMISTRY & BLOOD GAS ORDE RABLES Final Result Performing Organization Address [facility] de Phone Number [facility] [address] [place] [address] * (ABNORMAL) SODIUM (10/22/2004 21:59 EDT) Sodium 149(H) 136 - 145 mEq/L [facility] 10/22/2004 21:5 9 EDT 10/22/2004 21:59 EDT Hilton Álvarez MD CHEMISTRY & BLOOD GAS ORDE RABLES Final Result Performing Organization Address [facility] de Phone Number [facility] [address] [place] [address] * (ABNORMAL) ELECTROLYTES (10/22/2004 20:23 EDT) Sodium 151(H) 136 - 145 mEq/L [facility] Potassium 3.8 3.6 - 5.2 mEq/L [facility] Chloride 117(H) 96 - 110 mEq/L [facility] CO2 28 24 - 32 mEq/L [facility] 10/22/2004 20:2 3 EDT 10/22/2004 20:23 EDT Hilton Álvarez MD CHEMISTRY & BLOOD GAS ORDE RABLES Final Result Performing Organization Address [facility] de Phone Number [facility] [address] [place] [address] * (ABNORMAL) SODIUM (10/22/2004 18:05 EDT) Sodium 147(H) 136 - 145 mEq/L [facility] 10/22/2004 18:0 5 EDT 10/22/2004 18:09 EDT Hilton Álvarez MD CHEMISTRY & BLOOD GAS ORDE RABLES Final Result Performing Organization Address [facility] de Phone Number [facility] [address] [place] [address] * (ABNORMAL) ELECTROLYTES (10/22/2004 16:40 EDT) Sodium 148(H) 136 - 145 mEq/L [facility] Potassium 3.4(L) 3.6 - 5.2 mEq/L [facility] Chloride 120(H) 96 - 110 mEq/L [facility] CO2 24 24 - 32 mEq/L [facility] 10/22/2004 16:4 0 EDT 10/22/2004 16:43 EDT Hilton Álvarez MD CHEMISTRY & BLOOD GAS ORDE RABLES Final Result Performing Organization Address City/[facility] de Phone Number [facility] [address] [place] [address] * TRIGLYCERIDE (10/22/2004 14:10 EDT) Triglycerides 164 34 - 165 mg/dl [facility] Comment:Heparinized plasma. 10/22/2004 14:1 0 EDT 10/22/2004 14:16 EDT Hilton Álvarez MD CHEMISTRY & BLOOD GAS HERMES HANNON Final Result Performing Organization Address [facility] de Phone Number [facility] [address] [place] [address] * (ABNORMAL) SODIUM (10/22/2004 14:10 EDT) Sodium 147(H) 136 - 145 mEq/L [facility] Comment:Heparinized plasma. 10/22/2004 14:1 0 EDT 10/22/2004 14:16 EDT Hilton Álvarez MD CHEMISTRY & BLOOD GAS HERMES HANNON Final Result Performing Organization Address [facility] de Phone Number [facility] [address] [place] [address] * OSMOLALITY, URINE (10/22/2004 12:50 EDT) Pathologist [facility] Osmolality, Ur 864 MOS/KG HOLLY GARCIA 10/22/2004 12:5 0 EDT 10/22/2004 12:52 EDT Hilton Álvarez MD URINALYSIS ORDERABLES Jacquie l Result Performing Organization Address [facility] de Phone Number [facility] [address] [place] [address] * SODIUM, URINE RANDOM (10/22/2004 12:50 EDT) Pathologist [facility] Sodium, Ur 191.0 mEq/L [facility] 10/22/2004 12:5 0 EDT 10/22/2004 12:52 EDT Hilton Álvarez MD URINALYSIS ORDERABLES Jacquie l Result Performing Organization Address [facility] de Phone Number [facility] [address] [place] [address] * (ABNORMAL) GLUCOSE, GLUCOMETER (10/22/2004 12:16 EDT) Glucose, Fingerstick 124(H) 70 - 110 mg/dl [facility] [employer] Supervisor ID [id number] Test Performed by Nursing Services [facility] 10/22/2004 12:1 6 EDT 10/23/2004 0:41 EDT Hilton Álvarez MD CHEMISTRY & BLOOD GAS ORDE RABREBECA Final Result Performing Organization Address [facility] de Phone Number [facility] [address] [place] [address] * (ABNORMAL) T4 FREE (10/22/2004 12:05 EDT) Pathologist [facility] Free T4 0.5(L) 0.8 - 1.8 ng/dl [facility] Comment:Test added by phone 10/22/2004 12:0 5 EDT 10/22/2004 14:04 EDT Hilton Álvarez MD CHEMISTRY & BLOOD GAS ORDE RABREBECA Final Result Performing Organization Address [facility] de Phone Number [facility] [address] [place] [address] * (ABNORMAL) ELECTROLYTES (10/22/2004 12:05 EDT) Sodium 147(H) 136 - 145 mEq/L [facility] Potassium 3.6 3.6 - 5.2 mEq/L [facility] Chloride 116(H) 96 - 110 mEq/L [facility] CO2 25 24 - 32 mEq/L [facility] 10/22/2004 12:0 5 EDT 10/22/2004 12:19 EDT Hilton Álvarez MD CHEMISTRY & BLOOD GAS ORDE RABLES Final Result Performing Organization Address City/[facility] de Phone Number [facility] [address] [place] [address] * T4 FREE (10/22/2004 12:05 EDT) Free T4 Testing cannot be performed on heparinized samples. 0.8 - 1.8 ng/dl [facility] 10/22/2004 12:0 5 EDT 10/22/2004 12:19 EDT Hilton Álvarez MD CHEMISTRY & BLOOD GAS ORDE RABLES Final Result Performing Organization Address [facility] de Phone Number [facility] [address] [place] [address] * TESTS ADDED BY PHONE (10/22/2004 12:05 EDT) [facility] Tests to be added FT4 [facility] 10/22/2004 12:0 5 EDT 10/22/2004 12:19 EDT Hilton Álvarez MD CHEMISTRY & BLOOD GAS ORDE RABLES Final Result Performing Organization Address [facility] de Phone Number [facility] [address] [place] [address] * (ABNORMAL) SODIUM (10/22/2004 10:00 EDT) [facility] Sodium 148(H) 136 - 145 mEq/L [facility] 10/22/2004 10:0 0 EDT 10/22/2004 10:03 EDT Hilton Álvarez MD CHEMISTRY & BLOOD GAS ORDE RABLES Final Result Performing Organization Address [facility] de Phone Number [facility] [address] [place] [address] * (ABNORMAL) ELECTROLYTES (10/22/2004 8:10 EDT) [facility] Sodium 147(H) 136 - 145 mEq/L [facility] [...] RABLES Final Result [facility] [address] [place] [address] * T4 FREE (10/22/2004 8:10 EDT) Free T4 Testing cannot be performed on heparinized samples. 0.8 - 1.8 ng/dl [facility] 10/22/2004 8:10 EDT 10/22/2004 8:19 EDT Hilton Álvarez MD CHEMISTRY & BLOOD GAS ORDE RABLES Final Result Performing Organization Address City/[facility]/ZIP Co de Phone Number [facility] [address] [place] [address] * TESTS ADDED BY PHONE (10/22/2004 8:10 EDT) Tests to be added FT4 [facility] 10/22/2004 8:10 EDT 10/22/2004 8:19 EDT Hilton Álvarez MD CHEMISTRY & BLOOD GAS ORDE RABLES Final Result Performing Organization Address City/[facility]/ZIP Co de Phone Number [facility] [address] [place] [address] * (ABNORMAL) SODIUM (10/22/2004 6:05 EDT) Sodium 149(H) 136 - 145 mEq/L [facility] 10/22/2004 6:05 EDT 10/22/2004 6:05 EDT Hilton Álvarez MD CHEMISTRY & BLOOD GAS ORDE RABLES Final Result Performing Organization Address [facility] de Phone Number [facility] [address] [place] [address] * TOTAL BILIRUBIN (10/22/2004 4:15 EDT) Bilirubin, Total <0.5 0.0 - 1.4 mg/dl [facility] Comment:Heparinized plasma. 10/22/2004 4:15 EDT 10/22/2004 4:15 EDT Hilton Álvarez MD CHEMISTRY & BLOOD GAS ORDE RABLES Final Result Performing Organization Address [facility] Phone Number [facility] [address] [place] [address] * GLUCOSE, SERUM (10/22/2004 4:15 EDT) Glucose, Serum 104 70 - 110 mg/dl [facility] Comment:Heparinized plasma. 10/22/2004 4:15 EDT 10/22/2004 4:15 EDT Hilton Álvarez MD CHEMISTRY & BLOOD GAS ORDE RABLES Final Result Performing Organization Address [facility] de Phone Number [facility] [address] [place] [address] * (ABNORMAL) PHOSPHORUS (10/22/2004 4:15 EDT) Phosphorus 2.8(L) 2.9 - 5.4 mg/dl [facility] Comment:Heparinized plasma. 10/22/2004 4:15 EDT 10/22/2004 4:15 EDT Hilton Álvarez MD CHEMISTRY & BLOOD GAS ORDE RABLES Final Result Performing Organization Address [facility] de Phone Number [facility] [address] [place] [address] * MAGNESIUM (10/22/2004 4:15 EDT) Pathologist [facility] Magnesium 2.6 1.7 - 2.8 mg/dl [facility] Comment:Heparinized plasma. 10/22/2004 4:15 EDT 10/22/2004 4:15 EDT Hilton Álvarez MD CHEMISTRY & BLOOD GAS ORDE [facility] Final Result Performing Organization Address [facility] de Phone Number [facility] [address] [place] [address] * (ABNORMAL) ELECTROLYTES (10/22/2004 4:15 EDT) Pathologist [facility] Sodium [...] Álvarez MD CHEMISTRY & BLOOD GAS ORDE [facility] Final Result Performing Organization Address [facility] Phone Number [facility] [address] [place] [address] * (ABNORMAL) CREATININE (10/22/2004 4:15 EDT) [facility] Creatinine 0.5(L) 0.6 - 1.2 mg/dl [facility] Comment:Heparinized plasma. 10/22/2004 4:15 EDT 10/22/2004 4:15 EDT Hilton Álvarez MD HISTORICAL LAB FOR SQ LOAD Final Result Performing Organization Address [facility] de Phone Number [facility] [address] [place] [address] * (ABNORMAL) HEMAGRAM AND DIFFERENTIAL (10/22/2004 4:15 [...] LYNDSEY Final Result [facility] [address] [place] [address] * (ABNORMAL) CALCIUM (10/22/2004 4:15 EDT) Calcium 7.6(L) 8.5 - 10.5 mg/dl [facility] Comment:Heparinized plasma. Calculated Calcium 9.0 8.5 - 10.5 mg/dl [facility] Comment:Heparinized plasma. 10/22/2004 4:15 EDT 10/22/2004 4:15 EDT us Hilton Álvarez MD CHEMISTRY & BLOOD GAS ORDE RABLES Final Result Performing Organization Address [facility] de Phone Number [facility] [address] [place] [address] * BUN (10/22/2004 4:15 EDT) BUN 15 8 - 21 mg/dl [facility] Comment:Heparinized plasma. 10/22/2004 4:15 EDT 10/22/2004 4:15 EDT us Hilton Álvarez MD CHEMISTRY & BLOOD GAS ORDE RABLES Final Result Performing Organization Address [facility] de Phone Number [facility] [address] [place] [address] * (ABNORMAL) AST (10/22/2004 4:15 EDT) AST 91(H) 16 - 38 U/L [facility] Comment: Sample retested, result confirmed Heparinized plasma. 10/22/2004 4:15 EDT 10/22/2004 4:15 EDT us Hilton Álvarez MD CHEMISTRY & BLOOD GAS ORDE RABLES Final Result Performing Organization Address [facility] de Phone Number [facility] [address] [place] [address] * (ABNORMAL) ALT (10/22/2004 4:15 EDT) ALT 222(H) 10 - 45 U/L [facility] Comment: Sample retested, result confirmed Heparinized plasma. 10/22/2004 4:15 EDT 10/22/2004 4:15 EDT us Hilton Álvarez MD CHEMISTRY & BLOOD GAS ORDE RABLES Final Result Performing Organization Address [facility] de Phone Number [facility] [address] [place] [address] * (ABNORMAL) ALKALINE PHOSPHATASE (10/22/2004 4:15 EDT) Total Alkaline Phosphatase 92(L) 130 - 525 U/L [facility] Comment:Heparinized plasma. 10/22/2004 4:15 EDT 10/22/2004 4:15 EDT Hilton Álvarez MD CHEMISTRY & BLOOD GAS ORDE [facility] Final Result Performing Organization Address [facility] Phone Number [facility] [address] [place] [address] * SODIUM (10/22/2004 1:58 EDT) Pathologist [facility] Sodium 144 136 - 145 mEq/L [facility] Comment:Heparinized plasma. 10/22/2004 1:58 EDT 10/22/2004 1:58 EDT Hilton Álvarez MD CHEMISTRY & BLOOD GAS ORDE [facility] Final Result Performing Organization Address [facility] Phone Number [facility] [address] [place] [address] * ELECTROLYTES (10/22/2004 0:05 EDT) Pathologist [facility] Sodium 140 136 - 145 mEq/L [facility] Comment:Heparinized plasma. Potassium 3.8 3.6 - 5.2 mEq/L [facility] Comment:Heparinized plasma. Chloride 104 96 - 110 mEq/L [facility] Comment:Heparinized plasma. CO2 28 24 - 32 mEq/L [facility] Comment:Heparinized plasma. 10/22/2004 0:05 EDT 10/22/2004 0:05 EDT Hilton Álvarez MD CHEMISTRY & BLOOD GAS ORDE [facility] Final Result Performing Organization Address [facility] Phone Number [facility] [address] [place] [address] * (ABNORMAL) GLUCOSE, GLUCOMETER (10/22/2004 0:01 EDT) Glucose, Fingerstick 132(H) 70 - 110 mg/dl [facility] [employer] ID [id number] Test Performed by Nursing Services [facility] 10/22/2004 0:01 EDT 10/23/2004 1:02 EDT Hilton Álvarez MD CHEMISTRY & BLOOD GAS ORDE RABLES Final Result Performing Organization Address [facility] de Phone Number [facility] [address] [place] [address] * SODIUM (10/21/2004 22:04 EDT) Sodium 137 136 - 145 mEq/L [facility] 10/21/2004 22:0 4 EDT 10/21/2004 22:04 EDT Hilton Álvarez MD CHEMISTRY & BLOOD GAS ORDE RABLES Final Result Performing Organization Address [facility] de Phone Number [facility] [address] [place] [address] * (ABNORMAL) GLUCOSE, GLUCOMETER (10/21/2004 21:59 EDT) Glucose, Fingerstick 121(H) 70 - 110 mg/dl [facility] [employer] Supervisor ID [id number] Test Performed by Nursing Services [facility] 10/21/2004 21:5 9 EDT 10/22/2004 0:20 EDT Hilton Álvarez MD CHEMISTRY & BLOOD GAS ORDE RABLES Final Result Performing Organization Address [facility] de Phone Number [facility] [address] [place] [address] * (ABNORMAL) ELECTROLYTES (10/21/2004 19:46 EDT) Sodium [...] ORDE RABLES Final Result Performing Organization Address [facility] de Phone Number [facility] [address] [place] [address] * (ABNORMAL) GLUCOSE, GLUCOMETER (10/21/2004 18:19 EDT) Glucose, Fingerstick 129(H) 70 - 110 mg/dl [facility] [place] [id number] Test Performed by Nursing Services [facility] 10/21/2004 18:1 9 EDT 10/22/2004 0:26 EDT Hilton Álvarez MD CHEMISTRY & BLOOD GAS ORDE RABLES Final Result Performing Organization Address [facility] de Phone Number [facility] [address] [place] [address] * SODIUM (10/21/2004 18:18 EDT) Sodium 138 136 - 145 mEq/L [facility] 10/21/2004 18:1 8 EDT 10/21/2004 18:23 EDT Hilton Álvarez MD CHEMISTRY & BLOOD GAS ORDE RABLES Final Result Performing Organization Address [facility] de Phone Number [facility] [address] [place] [address] * ELECTROLYTES (10/21/2004 15:58 EDT) Sodium 138 [...] ORDE RABLES Final Result Performing Organization Address [facility] de Phone Number [facility] [address] [place] [address] * (ABNORMAL) SODIUM (10/21/2004 14:13 EDT) Sodium 132(L) 136 - 145 mEq/L [facility] Comment:Heparinized plasma. 10/21/2004 14:1 3 EDT 10/21/2004 14:13 EDT Hilton Álvarez MD CHEMISTRY & BLOOD GAS ORDE RABLES Final Result Performing Organization Address [facility] Phone Number [facility] [address] [place] [address] * (ABNORMAL) GLUCOSE, GLUCOMETER (10/21/2004 14:07 EDT) Glucose, Fingerstick 116(H) 70 - 110 mg/dl [facility] [employer] Supervisor ID [id number] Test Performed by Nursing Services [facility] 10/21/2004 14:0 7 EDT 10/22/2004 0:24 EDT Hilton Álvarez MD CHEMISTRY & BLOOD GAS ORDE RABLES Final Result Performing Organization Address [facility] de Phone Number [facility] [address] [place] [address] * (ABNORMAL) ELECTROLYTES (10/21/2004 12:00 EDT) Sodium 131(L) 136 - 145 mEq/L [facility] Potassium 4.0 3.6 - 5.2 mEq/L [facility] Chloride 98 96 - 110 mEq/L [facility] CO2 27 24 - 32 mEq/L [facility] 10/21/2004 12:0 0 EDT 10/21/2004 12:07 EDT Hilton Álvarez MD CHEMISTRY & BLOOD GAS ORDE RABLES Final Result Performing Organization Address [facility] de Phone Number [facility] [address] [place] [address] * (ABNORMAL) SODIUM (10/21/2004 10:00 EDT) Sodium 133(L) 136 - 145 mEq/L [facility] Comment:Heparinized plasma. 10/21/2004 10:0 0 EDT 10/21/2004 10:05 EDT Hilton Álvarez MD CHEMISTRY & BLOOD GAS ORDE RABLES Final Result Performing Organization Address [facility] Phone Number [facility] [address] [place] [address] * (ABNORMAL) GLUCOSE, GLUCOMETER (10/21/2004 8:10 EDT) Glucose, Fingerstick 111(H) 70 - 110 mg/dl [facility] [employer] Supervisor ID [id number] Test Performed by Nursing Services [facility] 10/21/2004 8:10 EDT 10/22/2004 0:22 EDT Hilton Álvarez MD CHEMISTRY & BLOOD GAS ORDE RABLES Final Result Performing Organization Address [facility] de Phone Number [facility] [address] [place] [address] * (ABNORMAL) ELECTROLYTES (10/21/2004 8:00 EDT) Sodium [...] ORDE RABLES Final Result Performing Organization Address [facility] Phone Number [facility] [address] [place] [address] * (ABNORMAL) SODIUM (10/21/2004 6:05 EDT) Sodium 133(L) 136 - 145 mEq/L [facility] 10/21/2004 6:05 EDT 10/21/2004 6:05 EDT Hilton Álvarez MD CHEMISTRY & BLOOD GAS ORDE RABLES Final Result Performing Organization Address [facility] Phone Number [facility] [address] [place] [address] * (ABNORMAL) GLUCOSE, GLUCOMETER (10/21/2004 4:06 EDT) Glucose, Fingerstick 123(H) 70 - 110 mg/dl [facility] [employer] Supervisor ID [id number] Test Performed by Nursing Services [facility] 10/21/2004 4:06 EDT 10/22/2004 0:11 EDT Hilton Álvarez MD CHEMISTRY & BLOOD GAS ORDE RABLES Final Result Performing Organization Address [facility] Phone Number [facility] [address] [place] [address] * (ABNORMAL) ELECTROLYTES (10/21/2004 4:06 EDT) Sodium 133(L) 136 - 145 mEq/L [facility] Potassium 4.0 3.6 - 5.2 mEq/L [facility] Chloride 98 96 - 110 mEq/L [facility] CO2 28 24 - 32 mEq/L [facility] 10/21/2004 4:06 EDT 10/21/2004 4:06 EDT Hilton Álvarez MD CHEMISTRY & BLOOD GAS ORDE RABLES Final Result Performing Organization Address City/[facility]/ZIP Co de Phone Number [facility] [address] [place] [address] * CREATININE (10/21/2004 4:06 EDT) Creatinine 0.7 0.6 - 1.2 mg/dl [facility] 10/21/2004 4:06 EDT 10/21/2004 4:06 EDT Hilton Álvarez MD HISTORICAL LAB FOR SQ LOAD Final Result Performing Organization Address [facility] de Phone Number [facility] [address] [place] [address] * (ABNORMAL) HEMAGRAM AND DIFFERENTIAL (10/21/2004 4:06 [...] ORDER LYNDSEY Final Result Performing Organization Address [facility] de Phone Number [facility] [address] [place] [address] * BUN (10/21/2004 4:06 EDT) BUN 13 8 - 21 mg/dl [facility] 10/21/2004 4:06 EDT 10/21/2004 4:06 EDT Hilton Álvarez MD CHEMISTRY & BLOOD GAS ORDE RABREBECA Final Result Performing Organization Address [facility] de Phone Number [facility] [address] [place] [address] * (ABNORMAL) SODIUM (10/21/2004 2:01 EDT) Sodium 134(L) 136 - 145 mEq/L [facility] 10/21/2004 2:01 EDT 10/21/2004 2:01 EDT us Hilton Álvarez MD CHEMISTRY & BLOOD GAS ORDE RABLES Final Result Performing Organization Address [facility] de Phone Number [facility] [address] [place] [address] * SODIUM (10/20/2004 22:07 EDT) Sodium 140 136 - 145 mEq/L [facility] 10/20/2004 22:0 7 EDT 10/20/2004 22:07 EDT Hilton Álvarez MD CHEMISTRY & BLOOD GAS ORDE RABLES Final Result Performing Organization Address [facility] de Phone Number [facility] [address] [place] [address] * (ABNORMAL) GLUCOSE, GLUCOMETER (10/20/2004 22:00 EDT) Glucose, Fingerstick 151(H) 70 - 110 mg/dl [facility] [employer]visor ID [id number] Test Performed by Nursing Services [facility] 10/20/2004 22:0 0 EDT 10/20/2004 23:06 EDT Hilton Álvarez MD CHEMISTRY & BLOOD GAS ORDE RABLES Final Result Performing Organization Address [facility] de Phone Number [facility] [address] [place] [address] * ELECTROLYTES (10/20/2004 20:08 EDT) Sodium 136 136 - 145 mEq/L [facility] Potassium 3.8 3.6 - 5.2 mEq/L [facility] Chloride 101 96 - 110 mEq/L [facility] CO2 28 24 - 32 mEq/L [facility] 10/20/2004 20:0 8 EDT 10/20/2004 20:08 EDT Hilton Álvarez MD CHEMISTRY & BLOOD GAS ORDE RABLES Final Result Performing Organization Address [facility] de Phone Number [facility] [address] [place] [address] * (ABNORMAL) GLUCOSE, GLUCOMETER (10/20/2004 20:05 EDT) Glucose, Fingerstick 219(H) 70 - 110 mg/dl [facility] [employer] Supervisor ID [id number] Test Performed by Nursing Services [facility] 10/20/2004 20:0 5 EDT 10/20/2004 21:43 EDT Hilton Álvarez MD CHEMISTRY & BLOOD GAS ORDE RABLES Final Result Performing Organization Address [facility]/State/ZIP Co de Phone Number [facility] [address] [place] [address] * SODIUM (10/20/2004 18:00 EDT) Sodium 140 136 - 145 mEq/L [facility] 10/20/2004 18:0 0 EDT 10/20/2004 18:07 EDT Hilton Álvarez MD CHEMISTRY & BLOOD GAS ORDE RABLES Final Result Performing Organization Address [facility] de Phone Number [facility] [address] [place] [address] * (ABNORMAL) ELECTROLYTES (10/20/2004 16:00 EDT) Sodium [...] ORDE RABLES Final Result Performing Organization Address [facility] de Phone Number [facility] [address] [place] [address] * SODIUM (10/20/2004 14:00 EDT) Sodium 140 136 - 145 mEq/L [facility] 10/20/2004 14:0 0 EDT 10/20/2004 14:14 EDT Hilton Álvarez MD CHEMISTRY & BLOOD GAS ORDE RABLES Final Result Performing Organization Address [facility] de Phone Number [facility] [address] [place] [address] * (ABNORMAL) ELECTROLYTES (10/20/2004 12:42 EDT) Sodium 141 136 - 145 mEq/L [facility] Potassium 3.4(L) 3.6 - 5.2 mEq/L [facility] Chloride 109 96 - 110 mEq/L [facility] CO2 26 24 - 32 mEq/L [facility] 10/20/2004 12:4 2 EDT 10/20/2004 12:42 EDT Hilton Álvarez MD CHEMISTRY & BLOOD GAS ORDE RABLES Final Result Performing Organization Address [facility] [facility] de Phone Number [facility] [address] [place] [address] * SODIUM (10/20/2004 10:00 EDT) Sodium 143 136 - 145 mEq/L [facility] 10/20/2004 10:0 0 EDT 10/20/2004 10:28 EDT Hilton Álvarez MD CHEMISTRY & BLOOD GAS ORDE RABLES Final Result Performing Organization Address [facility] de Phone Number [facility] [address] [place] [address] * (ABNORMAL) ELECTROLYTES (10/20/2004 8:21 EDT) Sodium [...] ORDE RABLES Final Result Performing Organization Address [facility] de Phone Number [facility] [address] [place] [address] * SODIUM (10/20/2004 6:06 EDT) Sodium 143 136 - 145 mEq/L [facility] 10/20/2004 6:06 EDT 10/20/2004 6:06 EDT Hilton Álvarez MD CHEMISTRY & BLOOD GAS HERMES HANNON Final Result Performing Organization Address City/[facility]/ZIP Co de Phone Number [facility] [address] [place] [address] * TOTAL & DIRECT BILIRUBIN (10/20/2004 4:00 EDT) Conjugated Bilirubin 0.0 0.0 - 0.3 mg/dl [facility] Unconjugated Bilirubin 0.3 0.1 - 1.1 mg/dl [facility] Bilirubin, Total <0.5 0.0 - 1.4 mg/dl [facility] 10/20/2004 4:00 EDT 10/20/2004 4:00 EDT Hilton Álvarez MD CHEMISTRY & BLOOD GAS HERMES HANNON Final Result Performing Organization Address City/[facility]/ZIP Co de Phone Number [facility] [address] [place] [address] * TOTAL BILIRUBIN (10/20/2004 4:00 EDT) Bilirubin, Total 0.0 - 1.4 mg/dl [facility] 10/20/2004 4:00 EDT 10/20/2004 4:00 EDT Hilton Álvarez MD CHEMISTRY & BLOOD GAS HERMES HANNON Final Result [facility] [address] [place] [address] * PHOSPHORUS (10/20/2004 4:00 EDT) Phosphorus 3.4 2.9 - 5.4 mg/dl [facility] 10/20/2004 4:00 EDT 10/20/2004 4:00 EDT us Hilton Álvarez MD CHEMISTRY & BLOOD GAS ORDE RABLES Final Result Performing Organization Address [facility] de Phone Number [facility] [address] [place] [address] * MAGNESIUM (10/20/2004 4:00 EDT) Magnesium 2.5 1.7 - 2.8 mg/dl [facility] 10/20/2004 4:00 EDT 10/20/2004 4:00 EDT us Hilton Álvarez MD CHEMISTRY & BLOOD GAS ORDE RABLES Final Result Performing Organization Address [facility] Phone Number [facility] [address] [place] [address] * (ABNORMAL) ELECTROLYTES (10/20/2004 4:00 EDT) Sodium 145 136 - 145 mEq/L [facility] Potassium 3.8 3.6 - 5.2 mEq/L [facility] Chloride 111(H) 96 - 110 mEq/L [facility] CO2 28 24 - 32 mEq/L [facility] 10/20/2004 4:00 EDT 10/20/2004 4:00 EDT us Hilton Álvarez MD CHEMISTRY & BLOOD GAS ORDE RABLES Final Result Performing Organization Address [facility] de Phone Number [facility] [address] [place] [address] * CREATININE (10/20/2004 4:00 EDT) Creatinine 0.7 0.6 - 1.2 mg/dl [facility] 10/20/2004 4:00 EDT 10/20/2004 4:00 EDT us Hilton Álvarez MD HISTORICAL LAB FOR SQ LOAD Final Result Performing Organization Address City/[facility]/ZIP Co de Phone Number [facility] [address] [place] [address] * (ABNORMAL) HEMAGRAM AND DIFFERENTIAL (10/20/2004 4:00 [...] ORDER LYNDSEY Final Result Performing Organization Address City/[facility] de Phone Number [facility] [address] [place] [address] * (ABNORMAL) CALCIUM (10/20/2004 4:00 EDT) Calcium 7.9(L) 8.5 - 10.5 mg/dl [facility] Calculated Calcium 9.4 8.5 - 10.5 mg/dl [facility] 10/20/2004 4:00 EDT 10/20/2004 4:00 EDT Hilton Álvarez MD CHEMISTRY & BLOOD GAS ORDE RABLES Final Result Performing Organization Address [facility] de Phone Number [facility] [address] [place] [address] * BUN (10/20/2004 4:00 EDT) BUN 15 8 - 21 mg/dl [facility] 10/20/2004 4:00 EDT 10/20/2004 4:00 EDT Hilton Álvarez MD CHEMISTRY & BLOOD GAS ORDE RABLES Final Result Performing Organization Address [facility] de Phone Number [facility] [address] [place] [address] * AST (10/20/2004 4:00 EDT) AST 27 16 - 38 U/L [facility] 10/20/2004 4:00 EDT 10/20/2004 4:00 EDT Hilton Álvarez MD CHEMISTRY & BLOOD GAS ORDE RABLES Final Result Performing Organization Address [facility] de Phone Number [facility] [address] [place] [address] * (ABNORMAL) ALT (10/20/2004 4:00 EDT) ALT 50(H) 10 - 45 U/L [facility] 10/20/2004 4:00 EDT 10/20/2004 4:00 EDT us Hilton Álvarez MD CHEMISTRY & BLOOD GAS ORDE RABLES Final Result Performing Organization Address [facility] de Phone Number [facility] [address] [place] [address] * (ABNORMAL) ALKALINE PHOSPHATASE (10/20/2004 4:00 EDT) Total Alkaline Phosphatase 91(L) 130 - 525 U/L [facility] 10/20/2004 4:00 EDT 10/20/2004 4:00 EDT Hilton Álvarez MD CHEMISTRY & BLOOD GAS ORDE RABLES Final Result Performing Organization Address [facility] de Phone Number [facility] [address] [place] [address] * (ABNORMAL) GLUCOSE, GLUCOMETER (10/20/2004 3:53 EDT) Glucose, Fingerstick 183(H) 70 - 110 mg/dl [facility] Ovens Supervisor ID [id number] Test Performed by Nursing Services [facility] 10/20/2004 3:53 EDT 10/21/2004 0:38 EDT Hilton Álvarez MD CHEMISTRY & BLOOD GAS ORDE RABLES Final Result Performing Organization Address [facility] de Phone Number [facility] [address] [place] [address] * SODIUM (10/20/2004 2:07 EDT) Sodium 143 136 - 145 mEq/L [facility] 10/20/2004 2:07 EDT 10/20/2004 2:07 EDT Hilton Álvarez MD CHEMISTRY & BLOOD GAS ORDE RABLES Final Result Performing Organization Address [facility] de Phone Number [facility] [address] [place] [address] * (ABNORMAL) ELECTROLYTES (10/20/2004 0:08 EDT) Sodium 145 136 - 145 mEq/L [facility] Potassium 3.7 3.6 - 5.2 mEq/L [facility] Chloride 113(H) 96 - 110 mEq/L [facility] CO2 28 24 - 32 mEq/L [facility] 10/20/2004 0:08 EDT 10/20/2004 0:08 EDT Hilton Álvarez MD CHEMISTRY & BLOOD GAS ORDE RABLES Final Result Performing Organization Address [facility] de Phone Number [facility] [address] [place] [address] * (ABNORMAL) ELECTROLYTES (10/20/2004 0:04 EDT) Sodium 135(L) 136 - 145 mEq/L [facility] Potassium 4.0 3.6 - 5.2 mEq/L [facility] Chloride 101 96 - 110 mEq/L [facility] CO2 25 24 - 32 mEq/L [facility] 10/20/2004 0:04 EDT 10/21/2004 0:04 EDT Hilton Álvarez MD CHEMISTRY & BLOOD GAS ORDE RABLES Final Result Performing Organization Address [facility] de Phone Number [facility] [address] [place] [address] * (ABNORMAL) GLUCOSE, GLUCOMETER (10/20/2004 0:02 EDT) Glucose, Fingerstick 139(H) 70 - 110 mg/dl [facility] Ovens Supervisor ID [id number] Test Performed by Nursing Services [facility] 10/20/2004 0:02 EDT 10/20/2004 21:53 EDT Hilton Álvarez MD CHEMISTRY & BLOOD GAS ORDE RABLES Final Result Performing Organization Address [facility] de Phone Number [facility] [address] [place] [address] * (ABNORMAL) SODIUM (10/19/2004 22:12 EDT) Sodium 147(H) 136 - 145 mEq/L [facility] 10/19/2004 22:1 2 EDT 10/19/2004 22:12 EDT Hilton Álvarez MD CHEMISTRY & BLOOD GAS ORDE RABREBECA Final Result Performing Organization Address [facility] de Phone Number [facility] [address] [place] [address] * (ABNORMAL) ELECTROLYTES (10/19/2004 20:00 EDT) Sodium [...] ORDE RIDDHI Final Result Performing Organization Address [facility] Phone Number [facility] [address] [place] [address] * (ABNORMAL) GLUCOSE, GLUCOMETER (10/19/2004 19:55 EDT) Glucose, Fingerstick 165(H) 70 - 110 mg/dl [facility] [employer] Supervisor ID [id number] Test Performed by Nursing Services [facility] 10/19/2004 19:5 5 EDT 10/19/2004 23:17 EDT Hilton Álvarez MD CHEMISTRY & BLOOD GAS ORDE RABREBECA Final Result Performing Organization Address [facility] Phone Number [facility] [address] [place] [address] * (ABNORMAL) SODIUM (10/19/2004 18:27 EDT) Sodium 149(H) 136 - 145 mEq/L [facility] 10/19/2004 18:2 7 EDT 10/19/2004 18:27 EDT Hilton Álvarez MD CHEMISTRY & BLOOD GAS ORDE RIDDHI Final Result Performing Organization Address [facility] de Phone Number [facility] [address] [place] [address] * GLUCOSE, SERUM (10/19/2004 16:52 EDT) Glucose, Serum 90 70 - 110 mg/dl [facility] 10/19/2004 16:5 2 EDT 10/19/2004 16:52 EDT us Hilton Álvarez MD CHEMISTRY & BLOOD GAS ORDE RIDDHI Final Result Performing Organization Address [facility] de Phone Number [facility] [address] [place] [address] * (ABNORMAL) ELECTROLYTES (10/19/2004 16:52 EDT) Sodium 146(H) 136 - 145 mEq/L [facility] Potassium 3.9 3.6 - 5.2 mEq/L [facility] Chloride 115(H) 96 - 110 mEq/L [facility] CO2 25 24 - 32 mEq/L [facility] 10/19/2004 16:5 2 EDT 10/19/2004 16:52 EDT Hilton Álvarez MD CHEMISTRY & BLOOD GAS ORDEmerald HANNON Final Result Performing Organization Address [facility] de Phone Number [facility] [address] [place] [address] * SODIUM (10/19/2004 14:25 EDT) Sodium 143 136 - 145 mEq/L [facility] 10/19/2004 14:2 5 EDT 10/19/2004 14:25 EDT Hilton Álvarez MD CHEMISTRY & BLOOD GAS ORDE RABRBEECA Final Result Performing Organization Address [facility]/ZIP Co de Phone Number [facility] [address] [place] [address] * ELECTROLYTES (10/19/2004 12:09 EDT) Sodium 139 [...] ORDE RABLES Final Result Performing Organization Address [facility] de Phone Number [facility] [address] [place] [address] * SODIUM (10/19/2004 10:17 EDT) Sodium 139 136 - 145 mEq/L [facility] Comment:Heparinized plasma. 10/19/2004 10:1 7 EDT 10/19/2004 10:17 EDT Hilton Álvarez MD CHEMISTRY & BLOOD GAS ORDE RABLES Final Result Performing Organization Address [facility] de Phone Number [facility] [address] [place] [address] * ELECTROLYTES (10/19/2004 8:20 EDT) Sodium 137 [...] de Phone Number [facility] [address] [place] [address] * OSMOLALITY, URINE (10/19/2004 6:54 EDT) Osmolality, Ur 874 MOS/KG [facility] 10/19/2004 6:54 EDT 10/19/2004 6:54 EDT Hilton Álvarez MD URINALYSIS ORDERABLES Jacquie l Result Performing Organization Address [facility]/ZIP Co de Phone Number [facility] [address] [place] [address] * SODIUM, URINE RANDOM (10/19/2004 6:54 EDT) Sodium, Ur 201.0 mEq/L [facility] 10/19/2004 6:54 EDT 10/19/2004 6:54 EDT Hilton Álvarez MD URINALYSIS ORDERABLES Jacquie l Result Performing Organization Address [facility] de Phone Number [facility] [address] [place] [address] * GLUCOSE, SERUM (10/19/2004 6:21 EDT) Pathologist [facility] Glucose, Serum 81 70 - 110 mg/dl [facility] Comment:Heparinized plasma. 10/19/2004 6:21 EDT 10/19/2004 6:21 EDT Hilton Álvarez MD CHEMISTRY & BLOOD GAS HERMES HANNON Final Result Performing Organization Address [facility] de Phone Number [facility] [address] [place] [address] * OSMOLALITY (10/19/2004 6:21 EDT) Osmolality Cintia 285 MOS/KG [facility] 10/19/2004 6:21 EDT 10/19/2004 6:21 EDT Hilton Álvarez MD CHEMISTRY & BLOOD GAS ORDE RABLES Final Result Performing Organization Address [facility] de Phone Number [facility] [address] [place] [address] * (ABNORMAL) ELECTROLYTES (10/19/2004 6:21 EDT) Sodium [...] ORDE RABLES Final Result Performing Organization Address [facility] de Phone Number [facility] [address] [place] [address] * (ABNORMAL) GLUCOSE, SERUM (10/19/2004 4:25 EDT) Glucose, Serum 60(L) 70 - 110 mg/dl [facility] Comment:Heparinized plasma. 10/19/2004 4:25 EDT 10/19/2004 4:25 EDT Hilton Álvarez MD CHEMISTRY & BLOOD GAS ORDE RABLES Final Result Performing Organization Address [facility] de Phone Number [facility] [address] [place] [address] * (ABNORMAL) ELECTROLYTES (10/19/2004 4:25 EDT) Sodium 138 136 - 145 mEq/L [facility] Comment:Heparinized plasma. Potassium 2.8(LL) 3.6 - 5.2 mEq/L [facility] Comment: Sample retested, result confirmed Heparinized plasma. Chloride 122(H) 96 - 110 mEq/L [facility] Comment: Sample retested, result confirmed Heparinized plasma. CO2 16(L) 24 - 32 mEq/L [facility] Comment:Heparinized plasma. 10/19/2004 4:25 EDT 10/19/2004 4:25 EDT Hilton Álvarez MD CHEMISTRY & BLOOD GAS ORDEmerald HANNON Final Result Performing Organization Address [facility] de Phone Number [facility] [address] [place] [address] * TOTAL & DIRECT BILIRUBIN (10/19/2004 2:10 EDT) Conjugated Bilirubin 0.0 0.0 - 0.3 mg/dl [facility] Unconjugated Bilirubin 0.3 0.1 - 1.1 mg/dl [facility] Bilirubin, Total <0.5 0.0 - 1.4 mg/dl [facility] 10/19/2004 2:10 EDT 10/19/2004 2:10 EDT Hilton Álvarez MD CHEMISTRY & BLOOD GAS HERMES HANNON Final Result Performing Organization Address [facility] de Phone Number [facility] [address] [place] [address] * PHOSPHORUS (10/19/2004 2:10 EDT) Phosphorus 4.4 2.9 - 5.4 mg/dl [facility] 10/19/2004 2:10 EDT 10/19/2004 2:10 EDT Hilton Álvarez MD CHEMISTRY & BLOOD GAS ORDEmerald HANNON Final Result Performing Organization Address City/[facility] de Phone Number [facility] [address] [place] [address] * MAGNESIUM (10/19/2004 2:10 EDT) Magnesium 2.4 1.7 - 2.8 mg/dl [facility] 10/19/2004 2:10 EDT 10/19/2004 2:10 EDT Hilton Álvarez MD CHEMISTRY & BLOOD GAS ORDE RABLES Final Result Performing Organization Address [facility] de Phone Number [facility] [address] [place] [address] * ELECTROLYTES (10/19/2004 2:10 EDT) Sodium 137 136 - 145 mEq/L [facility] Potassium 4.1 3.6 - 5.2 mEq/L [facility] Chloride 101 96 - 110 mEq/L [facility] Comment:Sample retested, res ult confirmed CO2 26 24 - 32 mEq/L [facility] 10/19/2004 2:10 EDT 10/19/2004 2:10 EDT Hilton Álvarez MD CHEMISTRY & BLOOD GAS ORDE [facility] Final Result Performing Organization Address [facility] de Phone Number [facility] [address] [place] [address] * CREATININE (10/19/2004 2:10 EDT) Creatinine 0.7 0.6 - 1.2 mg/dl [facility] 10/19/2004 2:10 EDT 10/19/2004 2:10 EDT Hilton Álvarez MD HISTORICAL LAB FOR SQ LOAD Final Result Performing Organization Address [facility] de Phone Number [facility] [address] [place] [address] * (ABNORMAL) HEMAGRAM AND DIFFERENTIAL (10/19/2004 2:10 [...] ORDER LYNDSEY Final Result Performing Organization Address City/[facility] de Phone Number [facility] [address] [place] [address] * (ABNORMAL) CALCIUM (10/19/2004 2:10 EDT) Calcium 8.0(L) 8.5 - 10.5 mg/dl [facility] Calculated Calcium 8.8 8.5 - 10.5 mg/dl [facility] 10/19/2004 2:10 EDT 10/19/2004 2:10 EDT us Hilton Álvarez MD CHEMISTRY & BLOOD GAS ORDE RABLES Final Result Performing Organization Address City/[facility] de Phone Number [facility] [address] [place] [address] * BUN (10/19/2004 2:10 EDT) BUN 14 8 - 21 mg/dl [facility] 10/19/2004 2:10 EDT 10/19/2004 2:10 EDT Hilton Álvarez MD CHEMISTRY & BLOOD GAS ORDE RIDDHI Final Result Performing Organization Address [facility]/State/ZIP Co de Phone Number [facility] [address] [place] [address] * AST (10/19/2004 2:10 EDT) AST 27 16 - 38 U/L [facility] 10/19/2004 2:10 EDT 10/19/2004 2:10 EDT Hilton Álvarez MD CHEMISTRY & BLOOD GAS ORDE RABREBECA Final Result Performing Organization Address [facility] de Phone Number [facility] [address] [place] [address] * (ABNORMAL) ALT (10/19/2004 2:10 EDT) ALT 50(H) 10 - 45 U/L [facility] 10/19/2004 2:10 EDT 10/19/2004 2:10 EDT Hilton Álvarez MD CHEMISTRY & BLOOD GAS ORDE RABREBECA Final Result Performing Organization Address [facility] de Phone Number [facility] [address] [place] [address] * (ABNORMAL) ALKALINE PHOSPHATASE (10/19/2004 2:10 EDT) Total Alkaline Phosphatase 103(L) 130 - 525 U/L [facility] 10/19/2004 2:10 EDT 10/19/2004 2:10 EDT us Hilton Álvarez MD CHEMISTRY & BLOOD GAS ORDE RABREBECA Final Result Performing Organization Address [facility] de Phone Number [facility] [address] [place] [address] * (ABNORMAL) ELECTROLYTES (10/19/2004 0:12 EDT) Sodium [...] ORDE RABLES Final Result Performing Organization Address [facility] de Phone Number [facility] [address] [place] [address] * SODIUM (10/18/2004 22:11 EDT) Sodium 137 136 - 145 mEq/L [facility] 10/18/2004 22:1 1 EDT 10/18/2004 22:11 EDT Hilton Álvarez MD CHEMISTRY & BLOOD GAS ORDE RABLES Final Result Performing Organization Address [facility] de Phone Number [facility] [address] [place] [address] * (ABNORMAL) ELECTROLYTES (10/18/2004 20:13 EDT) Sodium 132(L) 136 - 145 mEq/L [facility] Potassium 3.5(L) 3.6 - 5.2 mEq/L [facility] Chloride 96 96 - 110 mEq/L [facility] CO2 25 24 - 32 mEq/L [facility] 10/18/2004 20:1 3 EDT 10/18/2004 20:13 EDT Hilton Álvarez MD CHEMISTRY & BLOOD GAS ORDE RABLES Final Result Performing Organization Address [facility] de Phone Number [facility] [address] [place] [address] * GLUCOSE, GLUCOMETER (10/18/2004 20:06 EDT) Glucose, Fingerstick 89 70 - 110 mg/dl [facility] [employer] Supervisor ID [id number] Test Performed by Nursing Services [facility] 10/18/2004 20:0 6 EDT 10/19/2004 0:23 EDT Hilton Álvarez MD CHEMISTRY & BLOOD GAS ORDE RABLES Final Result Performing Organization Address [facility] de Phone Number [facility] [address] [place] [address] * (ABNORMAL) SODIUM (10/18/2004 18:15 EDT) Sodium 128(L) 136 - 145 mEq/L [facility] 10/18/2004 18:1 5 EDT 10/18/2004 18:15 EDT Hilton Álvarez MD CHEMISTRY & BLOOD GAS ORDE RABLES Final Result Performing Organization Address [facility] de Phone Number [facility] [address] [place] [address] * (ABNORMAL) ELECTROLYTES (10/18/2004 16:08 EDT) Sodium 128(L) 136 - 145 mEq/L [facility] Potassium 3.7 3.6 - 5.2 mEq/L [facility] Chloride 93(L) 96 - 110 mEq/L [facility] CO2 27 24 - 32 mEq/L [facility] 10/18/2004 16:0 8 EDT 10/18/2004 16:08 EDT Hilton Álvarez MD CHEMISTRY & BLOOD GAS ORDE RABLES Final Result Performing Organization Address [facility] de Phone Number [facility] [address] [place] [address] * GLUCOSE, GLUCOMETER (10/18/2004 16:00 EDT) Glucose, Fingerstick 106 70 - 110 mg/dl [facility] [employer] Supervisor ID [id number] Test Performed by Nursing Services [facility] 10/18/2004 16:0 0 EDT 10/19/2004 0:23 EDT Hilton Álvarez MD CHEMISTRY & BLOOD GAS ORDE RABLES Final Result Performing Organization Address [facility] Phone Number [facility] [address] [place] [address] * (ABNORMAL) SODIUM (10/18/2004 14:37 EDT) Sodium 128(L) 136 - 145 mEq/L [facility] 10/18/2004 14:3 7 EDT 10/18/2004 14:37 EDT Hilton Álvarez MD CHEMISTRY & BLOOD GAS ORDE RABLES Final Result Performing Organization Address [facility] Phone Number [facility] [address] [place] [address] * GLUCOSE, GLUCOMETER (10/18/2004 11:59 EDT) Glucose, Fingerstick 98 70 - 110 mg/dl [facility] O[employer] Supervisor ID [id number] Test Performed by Nursing Services [facility] 10/18/2004 11:5 9 EDT 10/19/2004 0:22 EDT Hilton Álvarez MD CHEMISTRY & BLOOD GAS ORDE RABLES Final Result Performing Organization Address [facility] de Phone Number [facility] [address] [place] [address] * (ABNORMAL) ELECTROLYTES (10/18/2004 11:56 EDT) Sodium 127(L) 136 - 145 mEq/L [facility] Potassium 3.9 3.6 - 5.2 mEq/L [facility] Chloride 92(L) 96 - 110 mEq/L [facility] CO2 29 24 - 32 mEq/L [facility] 10/18/2004 11:5 6 EDT 10/18/2004 11:56 EDT Hilton Álvarez MD CHEMISTRY & BLOOD GAS ORDE RABLES Final Result Performing Organization Address [facility] de Phone Number [facility] [address] [place] [address] * (ABNORMAL) GLUCOSE, GLUCOMETER (10/18/2004 10:07 EDT) Glucose, Fingerstick 130(H) 70 - 110 mg/dl [facility] [employer] Supervisor ID [id number] Test Performed by Nursing Services AINSHA GARCIA 10/18/2004 10:0 7 EDT 10/19/2004 0:21 EDT Hilton Álvarez MD CHEMISTRY & BLOOD GAS ORDE RABLES Final Result Performing Organization Address [facility] de Phone Number [facility] [address] [place] [address] * (ABNORMAL) SODIUM (10/18/2004 10:06 EDT) Sodium 128(L) 136 - 145 mEq/L [facility] Comment:Heparinized plasma. 10/18/2004 10:0 6 EDT 10/18/2004 10:06 EDT Hilton Álvarez MD CHEMISTRY & BLOOD GAS ORDE RABLES Final Result Performing Organization Address [facility] de Phone Number [facility] [address] [place] [address] * (ABNORMAL) ELECTROLYTES (10/18/2004 8:18 EDT) Sodium 130(L) 136 - 145 mEq/L [facility] Potassium 3.6 3.6 - 5.2 mEq/L [facility] Chloride 92(L) 96 - 110 mEq/L [facility] CO2 30 24 - 32 mEq/L [facility] 10/18/2004 8:18 EDT 10/18/2004 8:18 EDT Hilton Álvarez MD CHEMISTRY & BLOOD GAS ORDE RIDDHI Final Result Performing Organization Address [facility] de Phone Number [facility] [address] [place] [address] * UA REFLEX (10/18/2004 7:59 EDT) UA Billing Microscopic not indicated. [facility] 10/18/2004 7:59 EDT 10/18/2004 7:59 EDT Hilton Álvarez MD URINALYSIS ORDERABLES Jacquie l Result Performing Organization Address [facility] Phone Number [facility] [address] [place] [address] * URINALYSIS (10/18/2004 7:59 EDT) Color, UA Yellow [facility] Clarity, UA Cloudy [facility] Glucose, UA Norm NORM [facility] Bilirubin, UA Neg NEG TRUE [facility] Ketones, UA Neg NEG [facility] Specific Bedias, Urine 1.020 1.005 - 1.02 [facility] [...] ORDERABLES Jacquie l Result Performing Organization Address [facility] de Phone Number [facility] [address] [place] [address] * CULTURE IF UA POSITIVE (10/18/2004 7:59 EDT) Culture if Indicated Culture not indicated by urinalysis results. [facility] 10/18/2004 7:59 EDT 10/18/2004 7:59 EDT Hilton Álvarez MD MICROBIOLOGY - GENERAL ORD ERABLES Final Result Performing Organization Address [facility] [facility] de Phone Number [facility] [address] [place] [address] * (ABNORMAL) SODIUM (10/18/2004 6:38 EDT) Sodium 130(L) 136 - 145 mEq/L [facility] Comment:Heparinized plasma. 10/18/2004 6:38 EDT 10/18/2004 6:38 EDT Hilton Álvarez MD CHEMISTRY & BLOOD GAS ORDE RABLES Final Result Performing Organization Address [facility] de Phone Number [facility] [address] [place] [address] * TOTAL & DIRECT BILIRUBIN (10/18/2004 4:23 EDT) Conjugated Bilirubin 0.0 0.0 - 0.3 mg/dl [facility] Unconjugated Bilirubin 0.2 0.1 - 1.1 mg/dl [facility] Bilirubin, Total <0.5 0.0 - 1.4 mg/dl [facility] 10/18/2004 4:23 EDT 10/18/2004 4:23 EDT Hilton Álvarez MD CHEMISTRY & BLOOD GAS ORDE RABLES Final Result Performing Organization Address City/[facility] de Phone Number [facility] [address] [place] [address] * PHOSPHORUS (10/18/2004 4:23 EDT) Phosphorus 3.3 2.9 - 5.4 mg/dl [facility] 10/18/2004 4:23 EDT 10/18/2004 4:23 EDT Hilton Álvarez MD CHEMISTRY & BLOOD GAS ORDE RABREBECA Final Result Performing Organization Address [facility] de Phone Number [facility] [address] [place] [address] * MAGNESIUM (10/18/2004 4:23 EDT) Magnesium 2.1 1.7 - 2.8 mg/dl [facility] 10/18/2004 4:23 EDT 10/18/2004 4:23 EDT Hilton Álvarez MD CHEMISTRY & BLOOD GAS ORDE RABLES Final Result Performing Organization Address [facility] Phone Number [facility] [address] [place] [address] * (ABNORMAL) ELECTROLYTES (10/18/2004 4:23 EDT) Sodium 132(L) 136 - 145 mEq/L [facility] Potassium 3.6 3.6 - 5.2 mEq/L [facility] Chloride 94(L) 96 - 110 mEq/L [facility] CO2 30 24 - 32 mEq/L [facility] 10/18/2004 4:23 EDT 10/18/2004 4:23 EDT Hilton Álvarez MD CHEMISTRY & BLOOD GAS ORDE RABLES Final Result Performing Organization Address [facility] de Phone Number [facility] [address] [place] [address] * CREATININE (10/18/2004 4:23 EDT) Creatinine 0.6 0.6 - 1.2 mg/dl [facility] 10/18/2004 4:23 EDT 10/18/2004 4:23 EDT Hilton Álvarez MD HISTORICAL LAB FOR SQ LOAD Final Result Performing Organization Address [facility] de Phone Number [facility] [address] [place] [address] * (ABNORMAL) HEMAGRAM AND DIFFERENTIAL (10/18/2004 4:23 EDT) Pathologist [facility] WBC 10.96 4.5 - 13.0 K/cmm [facility] RBC 3.35(L) 4.50 - 5.30 M/cmm [facility] Hemoglobin 9.6(L) 13.0 - 16.0 gm/dl [facility] HCT 27.2(L) 37.0 - 49.0 % [facility] MCV 81 78 - 98 fl [facility] MCH 28.7 pg [facility] MCHC 35.4 gm/dl [facility] [...] LYNDSEY Final Result [facility] [address] [place] [address] * (ABNORMAL) CALCIUM (10/18/2004 4:23 EDT) Calcium 7.9(L) 8.5 - 10.5 mg/dl [facility] Calculated Calcium 9.0 8.5 - 10.5 mg/dl [facility] 10/18/2004 4:23 EDT 10/18/2004 4:23 EDT Hilton Álvarez MD CHEMISTRY & BLOOD GAS ORDE RABLES Final Result Performing Organization Address [facility] de Phone Number [facility] [address] [place] [address] * BUN (10/18/2004 4:23 EDT) BUN 16 8 - 21 mg/dl [facility] 10/18/2004 4:23 EDT 10/18/2004 4:23 EDT us Hilton Álvarez MD CHEMISTRY & BLOOD GAS ORDE RABLES Final Result Performing Organization Address [facility] de Phone Number [facility] [address] [place] [address] * AST (10/18/2004 4:23 EDT) AST 24 16 - 38 U/L [facility] 10/18/2004 4:23 EDT 10/18/2004 4:23 EDT us Hilton Álvarez MD CHEMISTRY & BLOOD GAS ORDE RABLES Final Result Performing Organization Address [facility] de Phone Number [facility] [address] [place] [address] * (ABNORMAL) ALT (10/18/2004 4:23 EDT) ALT 55(H) 10 - 45 U/L [facility] 10/18/2004 4:23 EDT 10/18/2004 4:23 EDT us Hilton Álvarez MD CHEMISTRY & BLOOD GAS ORDE RABLES Final Result Performing Organization Address [facility] de Phone Number [facility] [address] [place] [address] * (ABNORMAL) ALKALINE PHOSPHATASE (10/18/2004 4:23 EDT) Total Alkaline Phosphatase 100(L) 130 - 525 U/L [facility] 10/18/2004 4:23 EDT 10/18/2004 4:23 EDT Hilton Álvarez MD CHEMISTRY & BLOOD GAS ORDE RABLES Final Result Performing Organization Address [facility] de Phone Number [facility] [address] [place] [address] * (ABNORMAL) SODIUM (10/18/2004 2:13 EDT) Sodium 132(L) 136 - 145 mEq/L [facility] 10/18/2004 2:13 EDT 10/18/2004 2:13 EDT Hilton Álvarez MD CHEMISTRY & BLOOD GAS ORDE RABLES Final Result Performing Organization Address [facility] Phone Number [facility] [address] [place] [address] * (ABNORMAL) SODIUM (10/18/2004 1:00 EDT) Sodium 133(L) 136 - 145 mEq/L [facility] 10/18/2004 1:00 EDT 10/18/2004 1:00 EDT Hilton Álvarez MD CHEMISTRY & BLOOD GAS ORDE RABLES Final Result Performing Organization Address [facility] de Phone Number [facility] [address] [place] [address] * (ABNORMAL) BLOOD GAS, EG6 ISTAT (10/18/2004 [...] [facility] Sample Type Venous [facility]IS[facility] budget controller ID [id number] Test Performed by Respiratory [facility] 10/18/2004 0:10 EDT 10/18/2004 0:06 EDT Hilton Álvarez MD CHEMISTRY & BLOOD GAS ORDE RABREBECA Final Result Performing Organization Address [facility] de Phone Number [facility] [address] [place] [address] * OSMOLALITY (10/18/2004 0:07 EDT) Osmolality Cintia 287 MOS/KG [facility] 10/18/2004 0:07 EDT 10/18/2004 0:07 EDT Hilton Álvarez MD CHEMISTRY & BLOOD GAS ORDE RABLES Final Result Performing Organization Address [facility] de Phone Number [facility] [address] [place] [address] * (ABNORMAL) ELECTROLYTES (10/18/2004 0:07 EDT) Sodium 135(L) 136 - 145 mEq/L [facility] Potassium 3.5(L) 3.6 - 5.2 mEq/L [facility] Chloride 99 96 - 110 mEq/L [facility] CO2 27 24 - 32 mEq/L [facility] 10/18/2004 0:07 EDT 10/18/2004 0:07 EDT us Hilton Álvarez MD CHEMISTRY & BLOOD GAS ORDE RABLES Final Result Performing Organization Address [facility] de Phone Number [facility] [address] [place] [address] * (ABNORMAL) GLUCOSE, GLUCOMETER (10/18/2004 0:06 EDT) Pathologist [facility] Glucose, Fingerstick 112(H) 70 - 110 mg/dl [facility] Ovens Supervisor ID [id number] Test Performed by Nursing Services [facility] 10/18/2004 0:06 EDT 10/19/2004 0:19 EDT Hilton Álvarez MD CHEMISTRY & BLOOD GAS ORDE RABLES Final Result Performing Organization Address [facility] de Phone Number [facility] [address] [place] [address] * (ABNORMAL) ELECTROLYTES (10/17/2004 22:42 EDT) Pathologist [facility] Sodium 125(L) 136 - 145 mEq/L ANISHA [...] ORDE RABLES Final Result Performing Organization Address [facility] de Phone Number [facility] [address] [place] [address] * OSMOLALITY (10/17/2004 21:34 EDT) Pathologist [facility] Osmolality Cintia 342 MOS/KG [facility] Comment:Markedly lipemic 10/17/2004 21:3 4 EDT 10/17/2004 21:34 EDT Hilton Álvarez MD CHEMISTRY & BLOOD GAS ORDE RABLES Final Result Performing Organization Address [facility] de Phone Number [facility] [address] [place] [address] * (ABNORMAL) ELECTROLYTES (10/17/2004 21:34 EDT) Sodium [...] Álvarez MD CHEMISTRY & BLOOD GAS ORDE [facility] Final Result Performing Organization Address [facility] de Phone Number [facility] [address] [place] [address] * OSMOLALITY (10/17/2004 15:50 EDT) Osmolality Cintia 296 MOS/KG [facility] 10/17/2004 15:5 0 EDT 10/17/2004 15:51 EDT Hilton Álvarez MD CHEMISTRY & BLOOD GAS ORDE RABLES Final Result Performing Organization Address [facility] de Phone Number [facility] [address] [place] [address] * (ABNORMAL) ELECTROLYTES (10/17/2004 15:50 EDT) Sodium 141 136 - 145 mEq/L [facility] Potassium 3.2(L) 3.6 - 5.2 mEq/L [facility] Chloride 108 96 - 110 mEq/L [facility] CO2 25 24 - 32 mEq/L [facility] 10/17/2004 15:5 0 EDT 10/17/2004 15:51 EDT Hilton Álvarez MD CHEMISTRY & BLOOD GAS ORDE RABLES Final Result Performing Organization Address [facility] de Phone Number [facility] [address] [place] [address] * OSMOLALITY, URINE (10/17/2004 11:36 EDT) Osmolality, Ur 532 MOS/KG HOLLY [facility] 10/17/2004 11:3 6 EDT 10/17/2004 11:37 EDT Hilton Álvarez MD URINALYSIS ORDERABLES Jacquie l Result Performing Organization Address [facility] de Phone Number [facility] [address] [place] [address] * SODIUM, URINE RANDOM (10/17/2004 11:36 EDT) Sodium, Ur 199.0 mEq/L [facility] 10/17/2004 11:3 6 EDT 10/17/2004 11:37 EDT Hilton Álvarez MD URINALYSIS ORDERABLES Jacquie l Result Performing Organization Address [facility] de Phone Number [facility] [address] [place] [address] * OSMOLALITY (10/17/2004 11:35 EDT) Osmolality Cintia 305 MOS/KG [facility] 10/17/2004 11:3 5 EDT 10/17/2004 11:36 EDT Hilton Álvarez MD CHEMISTRY & BLOOD GAS ORDE RABLES Final Result Performing Organization Address [facility] de Phone Number [facility] [address] [place] [address] * (ABNORMAL) ELECTROLYTES (10/17/2004 11:35 EDT) Sodium 142 136 - 145 mEq/L [facility] Comment:Heparinized plasma. Potassium 3.1(L) 3.6 - 5.2 mEq/L [facility] Comment:Heparinized plasma. Chloride 116(H) 96 - 110 mEq/L [facility] Comment:Heparinized plasma. CO2 23(L) 24 - 32 mEq/L [facility] Comment:Heparinized plasma. 10/17/2004 11:3 5 EDT 10/17/2004 11:36 EDT Hilton Álvarez MD CHEMISTRY & BLOOD GAS ORDEmerald [facility] Final Result [facility] [address] [place] [address] * CT HEAD WO CONTRAST (10/17/2004 11:04 [...] line to double-lumen. 2. Fluoroscopic guidance used. /[facility] Narrative 03/06/2009 9:00 EDT S/P CRANI [...] ORDERABLES Jacquie l Result Performing Organization Address [facility] de Phone Number [facility] [address] [place] [address] * SODIUM, URINE RANDOM (10/17/2004 8:00 EDT) Sodium, Ur 66.0 mEq/L [facility] 10/17/2004 8:00 EDT 10/17/2004 8:04 EDT Hilton Álvarez MD URINALYSIS ORDERABLES Jacquie l Result Performing Organization Address [facility] Phone Number [facility] [address] [place] [address] * OSMOLALITY (10/17/2004 8:00 EDT) Osmolality Cintia 304 MOS/KG [facility] 10/17/2004 8:00 EDT 10/17/2004 8:05 EDT Hilton Álvarez MD CHEMISTRY & BLOOD GAS ORDE [facility] Final Result Performing Organization Address [facility] de Phone Number [facility] [address] [place] [address] * (ABNORMAL) ELECTROLYTES (10/17/2004 8:00 EDT) Sodium 143 136 - 145 mEq/L [facility] Potassium 3.6 3.6 - 5.2 mEq/L [facility] Chloride 111(H) 96 - 110 mEq/L [facility] CO2 26 24 - 32 mEq/L [facility] 10/17/2004 8:00 EDT 10/17/2004 8:05 EDT Hilton Álvarez MD CHEMISTRY & BLOOD GAS HERMES HANNON Final Result Performing Organization Address [facility] de Phone Number [facility] [address] [place] [address] * SODIUM (10/17/2004 6:13 EDT) Sodium 142 136 - 145 mEq/L [facility] 10/17/2004 6:13 EDT 10/17/2004 6:13 EDT Hilton Álvarez MD CHEMISTRY & BLOOD GAS ORDEmerald HANNON Final Result Performing Organization Address [facility] Phone Number [facility] [address] [place] [address] * OSMOLALITY, URINE (10/17/2004 3:58 EDT) Osmolality, Ur 578 MOS/KG MELONIETEA [facility] 10/17/2004 3:58 EDT 10/17/2004 3:58 EDT Hilton Álvarez MD URINALYSIS ORDERABLES Jacquie l Result Performing Organization Address [facility] Phone Number [facility] [address] [place] [address] * SODIUM, URINE RANDOM (10/17/2004 3:58 EDT) Sodium, Ur 175.0 mEq/L [facility] 10/17/2004 3:58 EDT 10/17/2004 3:58 EDT us Hilton Álvarez MD URINALYSIS ORDERABLES Jacquie l Result Performing Organization Address [facility] Phone Number [facility] [address] [place] [address] * TOTAL BILIRUBIN (10/17/2004 3:57 EDT) Bilirubin, Total <0.5 0.0 - 1.4 mg/dl [facility] 10/17/2004 3:57 EDT 10/17/2004 3:57 EDT Hilton Álvarez MD CHEMISTRY & BLOOD GAS ORDE RABLES Final Result Performing Organization Address [facility] Phone Number [facility] [address] [place] [address] * GLUCOSE, SERUM (10/17/2004 3:57 EDT) Glucose, Serum 96 70 - 110 mg/dl [facility] 10/17/2004 3:57 EDT 10/17/2004 3:57 EDT Hilton Álvarez MD CHEMISTRY & BLOOD GAS ORDE RABLES Final Result Performing Organization Address [facility] de Phone Number [facility] [address] [place] [address] * PTT (10/17/2004 3:57 EDT) Pathologist [facility] PTT 26 23 - 34 secs [facility] Comment:Therapeutic Heparin range: 72-120 seconds 10/17/2004 3:57 EDT 10/17/2004 3:57 EDT Hilton Álvarez MD HEMATOLOGY & PF4 ORDERABLE S Final Result Performing Organization Address [facility] Phone Number [facility] [address] [place] [address] * (ABNORMAL) PROTIME (10/17/2004 3:57 EDT) Pro [...] S Final Result Performing Organization Address [facility]/ZIP [facility] de Phone Number [facility] [address] [place] [address] * PHOSPHORUS (10/17/2004 3:57 EDT) Phosphorus 3.8 2.9 - 5.4 mg/dl [facility] 10/17/2004 3:57 EDT 10/17/2004 3:57 EDT Hilton Álvarez MD CHEMISTRY & BLOOD GAS ORDE RABLES Final Result Performing Organization Address [facility] de Phone Number [facility] [address] [place] [address] * OSMOLALITY (10/17/2004 3:57 EDT) Osmolality Cintia 296 MOS/KG [facility] 10/17/2004 3:57 EDT 10/17/2004 3:57 EDT Hilton Álavrez MD CHEMISTRY & BLOOD GAS ORDE RABLES Final Result Performing Organization Address [facility] de Phone Number [facility] [address] [place] [address] * BILIRUBIN (10/17/2004 3:57 EDT) Conjugated Bilirubin 0.0 0.0 - 0.3 mg/dl [facility] Unconjugated Bilirubin 0.2 0.1 - 1.1 mg/dl [facility] Calculated Total Bilirubin 0.2 0.0 - 1.4 mg/dl [facility] 10/17/2004 3:57 EDT 10/17/2004 3:57 EDT Hilton Álvarez MD CHEMISTRY & BLOOD GAS ORDE RABLES Final Result Performing Organization Address [facility] de Phone Number [facility] [address] [place] [address] * ELECTROLYTES (10/17/2004 3:57 EDT) Sodium 141 136 - 145 mEq/L [facility] Potassium 3.7 3.6 - 5.2 mEq/L [facility] Chloride 105 96 - 110 mEq/L [facility] CO2 28 24 - 32 mEq/L [facility] 10/17/2004 3:57 EDT 10/17/2004 3:57 EDT us Hilton Álvarez MD CHEMISTRY & BLOOD GAS ORDE RABREBECA Final Result Performing Organization Address [facility] de Phone Number [facility] [address] [place] [address] * BILIRUBIN DIRECT/INDIRECT (10/17/2004 3:57 EDT) Conjugated Bilirubin 0.0 - 0.3 mg/dl [facility] Unconjugated Bilirubin 0.1 - 1.1 mg/dl [facility] 10/17/2004 3:57 EDT 10/17/2004 3:57 EDT Hilton Álvarez MD CHEMISTRY & BLOOD GAS ORDE RABLES Final Result Performing Organization Address [facility] de Phone Number [facility] [address] [place] [address] * CREATININE (10/17/2004 3:57 EDT) Creatinine 0.8 0.6 - 1.2 mg/dl [facility] 10/17/2004 3:57 EDT 10/17/2004 3:57 EDT Hilton Álvarez MD HISTORICAL LAB FOR SQ LOAD Final Result Performing Organization Address [facility] de Phone Number [facility] [address] [place] [address] * (ABNORMAL) HEMAGRAM AND DIFFERENTIAL (10/17/2004 3:57 [...] LYNDSEY Final Result [facility] [address] [place] [address] * (ABNORMAL) CALCIUM (10/17/2004 3:57 EDT) Calcium 7.9(L) 8.5 - 10.5 mg/dl [facility] Calculated Calcium 9.4 8.5 - 10.5 mg/dl [facility] 10/17/2004 3:57 EDT 10/17/2004 3:57 EDT us Hilton Álvarez MD CHEMISTRY & BLOOD GAS ORDE RABLES Final Result [facility] [address] [place] [address] * BUN (10/17/2004 3:57 EDT) BUN 17 8 - 21 mg/dl [facility] 10/17/2004 3:57 EDT 10/17/2004 3:57 EDT us Hilton Álvarez MD CHEMISTRY & BLOOD GAS ORDE RABLES Final Result Performing Organization Address [facility] de Phone Number [facility] [address] [place] [address] * AST (10/17/2004 3:57 EDT) AST 27 16 - 38 U/L [facility] 10/17/2004 3:57 EDT 10/17/2004 3:57 EDT us Hilton Álvarez MD CHEMISTRY & BLOOD GAS ORDE RABREBECA Final Result Performing Organization Address [facility] de Phone Number [facility] [address] [place] [address] * (ABNORMAL) ALT (10/17/2004 3:57 EDT) ALT 59(H) 10 - 45 U/L [facility] 10/17/2004 3:57 EDT 10/17/2004 3:57 EDT us Hilton Álvarez MD CHEMISTRY & BLOOD GAS ORDE RABLES Final Result Performing Organization Address [facility] de Phone Number [facility] [address] [place] [address] * (ABNORMAL) ALKALINE PHOSPHATASE (10/17/2004 3:57 EDT) Total Alkaline Phosphatase 91(L) 130 - 525 U/L [facility] 10/17/2004 3:57 EDT 10/17/2004 3:57 EDT Hilton Álvarez MD CHEMISTRY & BLOOD GAS HERMES HANNON Final Result Performing Organization Address [facility] Phone Number [facility] [address] [place] [address] * SODIUM (10/17/2004 1:56 EDT) Sodium 141 136 - 145 mEq/L [facility] 10/17/2004 1:56 EDT 10/17/2004 1:56 EDT Hilton Álvarez MD CHEMISTRY & BLOOD GAS HERMES HANNON Final Result Performing Organization Address [facility] Phone Number [facility] [address] [place] [address] * OSMOLALITY, URINE (10/17/2004 0:10 EDT) Osmolality, Ur 620 MOS/KG HO[facility] 10/17/2004 0:10 EDT 10/17/2004 0:10 EDT Hilton Álvarez MD URINALYSIS ORDERABLES Jacquie l Result Performing Organization Address [facility] Phone Number [facility] [address] [place] [address] * SODIUM, URINE RANDOM (10/17/2004 0:10 EDT) Sodium, Ur 214.0 mEq/L [facility] 10/17/2004 0:10 EDT 10/17/2004 0:10 EDT us Hilton Álvarez MD URINALYSIS ORDERABLES Jacquie l Result Performing Organization Address [facility] Phone Number [facility] [address] [place] [address] * OSMOLALITY (10/17/2004 0:09 EDT) Osmolality Cintia 295 MOS/KG SHERI [facility] 10/17/2004 0:09 EDT 10/17/2004 0:09 EDT Hilton Álvarez MD CHEMISTRY & BLOOD GAS ORDE RABLES Final Result Performing Organization Address [facility] de Phone Number [facility] [address] [place] [address] * ELECTROLYTES (10/17/2004 0:09 EDT) Sodium 142 136 - 145 mEq/L [facility] Potassium 3.8 3.6 - 5.2 mEq/L [facility] Chloride 109 96 - 110 mEq/L [facility] CO2 28 24 - 32 mEq/L [facility] 10/17/2004 0:09 EDT 10/17/2004 0:09 EDT Hilton Álvarez MD CHEMISTRY & BLOOD GAS ORDE RABLES Final Result Performing Organization Address [facility] de Phone Number [facility] [address] [place] [address] * SODIUM (10/16/2004 21:56 EDT) Sodium 141 136 - 145 mEq/L [facility] 10/16/2004 21:5 6 EDT 10/16/2004 21:56 EDT Hilton Álvarez MD CHEMISTRY & BLOOD GAS ORDE RABLES Final Result Performing Organization Address [facility] de Phone Number [facility] [address] [place] [address] * SODIUM, URINE RANDOM (10/16/2004 20:15 EDT) Sodium, Ur 190.0 mEq/L [facility] 10/16/2004 20:1 5 EDT 10/16/2004 20:15 EDT Hilton Álvarez MD URINALYSIS ORDERABLES Jacquie l Result Performing Organization Address City/[facility]/ZIP Co de Phone Number [facility] [address] [place] [address] * OSMOLALITY (10/16/2004 20:05 EDT) Osmolality Cintia 295 MOS/KG SHERI ALME[facility] 10/16/2004 20:0 5 EDT 10/16/2004 20:41 EDT Hilton Álvarez MD CHEMISTRY & BLOOD GAS ORDE RABREBECA Final Result Performing Organization Address [facility] de Phone Number [facility] [address] [place] [address] * ELECTROLYTES (10/16/2004 20:05 EDT) Sodium 143 136 - 145 mEq/L [facility] Potassium 3.7 3.6 - 5.2 mEq/L [facility] Chloride 108 96 - 110 mEq/L [facility] CO2 29 24 - 32 mEq/L [facility] 10/16/2004 20:0 5 EDT 10/16/2004 20:41 EDT Hilton Álvarez MD CHEMISTRY & BLOOD GAS ORDE RABLES Final Result Performing Organization Address [facility] de Phone Number [facility] [address] [place] [address] * SODIUM (10/16/2004 18:07 EDT) Sodium 144 136 - 145 mEq/L [facility] 10/16/2004 18:0 7 EDT 10/16/2004 18:07 EDT Hilton Álvarez MD CHEMISTRY & BLOOD GAS ORDE RABLES Final Result Performing Organization Address [facility]/ZIP Co de Phone Number [facility] [address] [place] [address] * OSMOLALITY, URINE (10/16/2004 16:27 EDT) Osmolality, Ur 338 MOS/KG HOLLY [facility] 10/16/2004 16:2 7 EDT 10/16/2004 16:27 EDT us Hilton Álvarez MD URINALYSIS ORDERABLES Jacquie l Result Performing Organization Address [facility] de Phone Number [facility] [address] [place] [address] * SODIUM, URINE RANDOM (10/16/2004 16:27 EDT) Sodium, Ur 100.0 mEq/L [facility] 10/16/2004 16:2 7 EDT 10/16/2004 16:27 EDT Hilton Álvarez MD URINALYSIS ORDERABLES Jacquie l Result Performing Organization Address [facility] de Phone Number [facility] [address] [place] [address] * GLUCOSE, SERUM (10/16/2004 16:27 EDT) Glucose, Serum 95 70 - 110 mg/dl [facility] 10/16/2004 16:2 7 EDT 10/16/2004 16:27 EDT us Hilton Álvarez MD CHEMISTRY & BLOOD GAS ORDE RABLES Final Result Performing Organization Address [facility] de Phone Number [facility] [address] [place] [address] * OSMOLALITY (10/16/2004 16:27 EDT) Osmolality Cintia 297 MOS/KG [facility] 10/16/2004 16:2 7 EDT 10/16/2004 16:27 EDT us Hilton Álvarez MD CHEMISTRY & BLOOD GAS ORDE RABLES Final Result Performing Organization Address [facility] de Phone Number [facility] [address] [place] [address] * SODIUM (10/16/2004 16:27 EDT) Sodium 136 - 145 mEq/L [facility] 10/16/2004 16:2 7 EDT 10/16/2004 16:27 EDT Hilton Álvarez MD CHEMISTRY & BLOOD GAS ORDE RABLES Final Result Performing Organization Address [facility] de Phone Number [facility] [address] [place] [address] * ELECTROLYTES (10/16/2004 16:27 EDT) Sodium 143 136 - 145 mEq/L [facility] Potassium 3.8 3.6 - 5.2 mEq/L [facility] Chloride 109 96 - 110 mEq/L [facility] CO2 28 24 - 32 mEq/L [facility] 10/16/2004 16:2 7 EDT 10/16/2004 16:27 EDT Hilton Álvarez MD CHEMISTRY & BLOOD GAS ORDE RABLES Final Result Performing Organization Address [facility] de Phone Number [facility] [address] [place] [address] * SODIUM (10/16/2004 14:14 EDT) Sodium 141 136 - 145 mEq/L [facility] 10/16/2004 14:1 4 EDT 10/16/2004 14:14 EDT Hilton Álvarez MD CHEMISTRY & BLOOD GAS ORDE RABLES Final Result Performing Organization Address [facility] de Phone Number [facility] [address] [place] [address] * OSMOLALITY, URINE (10/16/2004 12:14 EDT) Osmolality, Ur 191 MOS/KG [facility] 10/16/2004 12:1 4 EDT 10/16/2004 12:14 EDT Hilton Álvarez MD URINALYSIS ORDERABLES Jacquie l Result Performing Organization Address [facility] de Phone Number [facility] [address] [place] [address] * SODIUM, URINE RANDOM (10/16/2004 12:14 EDT) Sodium, Ur 27.0 mEq/L [facility] 10/16/2004 12:1 4 EDT 10/16/2004 12:14 EDT Hilton Álvarez MD URINALYSIS ORDERABLES Jacquie l Result Performing Organization Address [facility] de Phone Number [facility] [address] [place] [address] * OSMOLALITY (10/16/2004 12:13 EDT) Osmolality Cintia 298 MOS/KG [facility] 10/16/2004 12:1 3 EDT 10/16/2004 12:13 EDT Hilton Álvarez MD CHEMISTRY & BLOOD GAS ORDE RABLES Final Result Performing Organization Address [facility] de Phone Number [facility] [address] [place] [address] * ELECTROLYTES (10/16/2004 12:13 EDT) Sodium 138 136 - 145 mEq/L [facility] Potassium 3.6 3.6 - 5.2 mEq/L [facility] Chloride 103 96 - 110 mEq/L [facility] CO2 27 24 - 32 mEq/L [facility] 10/16/2004 12:1 3 EDT 10/16/2004 12:13 EDT us Hilton Álvarez MD CHEMISTRY & BLOOD GAS ORDE RABLES Final Result Performing Organization Address [facility] de Phone Number [facility] [address] [place] [address] * (ABNORMAL) SODIUM (10/16/2004 10:21 EDT) Sodium 135(L) 136 - 145 mEq/L [facility] Comment:Heparinized plasma. 10/16/2004 10:2 1 EDT 10/16/2004 10:21 EDT Hilton Álvarez MD CHEMISTRY & BLOOD GAS ORDEmerald HANNON Final Result Performing Organization Address [facility] de Phone Number [facility] [address] [place] [address] * OSMOLALITY, URINE (10/16/2004 8:22 EDT) Osmolality, Ur 792 MOS/KG [facility] 10/16/2004 8:22 EDT 10/16/2004 8:22 EDT Hilton Álvarez MD URINALYSIS ORDERABLES Jacquie l Result Performing Organization Address [facility] de Phone Number [facility] [address] [place] [address] * SODIUM, URINE RANDOM (10/16/2004 8:22 EDT) Sodium, Ur 186.0 mEq/L [facility] 10/16/2004 8:22 EDT 10/16/2004 8:22 EDT Hilton Álvarez MD URINALYSIS ORDERABLES Jacquie l Result Performing Organization Address [facility] de Phone Number [facility] [address] [place] [address] * OSMOLALITY (10/16/2004 8:21 EDT) Osmolality Cintia 289 MOS/KG SHERI [facility] 10/16/2004 8:21 EDT 10/16/2004 8:21 EDT Hilton Álvarez MD CHEMISTRY & BLOOD GAS ORDE RABLES Final Result [facility] [address] [place] [address] * SODIUM (10/16/2004 8:21 EDT) Sodium 136 - 145 mEq/L [facility] 10/16/2004 8:21 EDT 10/16/2004 8:21 EDT Hilton Álvarez MD CHEMISTRY & BLOOD GAS ORDE RABLES Final Result Performing Organization Address [facility] de Phone Number [facility] [address] [place] [address] * (ABNORMAL) ELECTROLYTES (10/16/2004 8:21 EDT) Sodium 135(L) 136 - 145 mEq/L [facility] Potassium 3.9 3.6 - 5.2 mEq/L [facility] Chloride 101 96 - 110 mEq/L [facility] CO2 28 24 - 32 mEq/L [facility] 10/16/2004 8:21 EDT 10/16/2004 8:21 EDT Hilton Álvarez MD CHEMISTRY & BLOOD GAS ORDE RABLES Final Result Performing Organization Address [facility] de Phone Number [facility] [address] [place] [address] * SODIUM (10/16/2004 6:19 EDT) Sodium 137 136 - 145 mEq/L [facility] 10/16/2004 6:19 EDT 10/16/2004 6:19 EDT Hilton Álvarez MD CHEMISTRY & BLOOD GAS ORDE RABLES Final Result Performing Organization Address City/[facility]/ZIP Co de Phone Number [facility] [address] [place] [address] * GLUCOSE, SERUM (10/16/2004 4:25 EDT) Glucose, Serum 100 70 - 110 mg/dl [facility] 10/16/2004 4:25 EDT 10/16/2004 4:25 EDT Hilton Álvarez MD CHEMISTRY & BLOOD GAS ORDE RABLES Final Result Performing Organization Address [facility] de Phone Number [facility] [address] [place] [address] * PTT (10/16/2004 4:25 EDT) PTT 27 23 - 34 secs [facility] Comment:Therapeutic Heparin range: 72-120 seconds 10/16/2004 4:25 EDT 10/16/2004 4:25 EDT Hilton Álvarez MD HEMATOLOGY & PF4 ORDERABLE S Final Result Performing Organization Address [facility] Phone Number [facility] [address] [place] [address] * (ABNORMAL) PROTIME (10/16/2004 4:25 EDT) Pro [...] ORDERABLE S Final Result Performing Organization Address [facility] de Phone Number [facility] [address] [place] [address] * OSMOLALITY (10/16/2004 4:25 EDT) Osmolality Cintia 283 MOS/KG SHERI [facility] 10/16/2004 4:25 EDT 10/16/2004 4:25 EDT Hilton Álvarez MD CHEMISTRY & BLOOD GAS ORDE RABLES Final Result Performing Organization Address [facility] de Phone Number [facility] [address] [place] [address] * ELECTROLYTES (10/16/2004 4:25 EDT) Sodium 138 136 - 145 mEq/L [facility] Potassium 3.7 3.6 - 5.2 mEq/L [facility] Chloride 103 96 - 110 mEq/L [facility] CO2 30 24 - 32 mEq/L [facility] 10/16/2004 4:25 EDT 10/16/2004 4:25 EDT Hilton Álvarez MD CHEMISTRY & BLOOD GAS ORDE RABLES Final Result Performing Organization Address [facility] de Phone Number [facility] [address] [place] [address] * CREATININE (10/16/2004 4:25 EDT) Creatinine 0.8 0.6 - 1.2 mg/dl [facility] 10/16/2004 4:25 EDT 10/16/2004 4:25 EDT Hilton Álvarez MD HISTORICAL LAB FOR SQ LOAD Final Result Performing Organization Address [facility] de Phone Number [facility] [address] [place] [address] * (ABNORMAL) HEMAGRAM AND DIFFERENTIAL (10/16/2004 4:25 [...] ORDER LYNDSEY Final Result Performing Organization Address [facility] de Phone Number [facility] [address] [place] [address] * BUN (10/16/2004 4:25 EDT) BUN 19 8 - 21 mg/dl [facility] 10/16/2004 4:25 EDT 10/16/2004 4:25 EDT Hilton Álvarez MD CHEMISTRY & BLOOD GAS ORDE RABLES Final Result Performing Organization Address [facility] de Phone Number [facility] [address] [place] [address] * OSMOLALITY, URINE (10/16/2004 4:25 EDT) Osmolality, Ur 845 MOS/KG [facility] 10/16/2004 4:25 EDT 10/16/2004 4:25 EDT Hilton Álvarez MD URINALYSIS ORDERABLES Jacquie l Result Performing Organization Address City/[facility]/ZIP Co de Phone Number [facility] [address] [place] [address] * SODIUM, URINE RANDOM (10/16/2004 4:25 EDT) Sodium, Ur 165.0 mEq/L [facility] 10/16/2004 4:25 EDT 10/16/2004 4:25 EDT Hilton Álvarez MD URINALYSIS ORDERABLES Jacquie l Result Performing Organization Address [facility] de Phone Number [facility] [address] [place] [address] * SODIUM (10/16/2004 2:11 EDT) Sodium 136 136 - 145 mEq/L [facility] 10/16/2004 2:11 EDT 10/16/2004 2:11 EDT Hilton Álvarez MD CHEMISTRY & BLOOD GAS ORDEmerald RABREBECA Final Result Performing Organization Address [facility] de Phone Number [facility] [address] [place] [address] * OSMOLALITY (10/16/2004 0:18 EDT) Osmolality Cintia 292 MOS/KG [facility] 10/16/2004 0:18 EDT 10/16/2004 0:18 EDT Hilton Álvarez MD CHEMISTRY & BLOOD GAS ORDEmerald RABREBECA Final Result Performing Organization Address [facility] de Phone Number [facility] [address] [place] [address] * ELECTROLYTES (10/16/2004 0:18 EDT) Sodium 139 136 - 145 mEq/L [facility] Potassium 3.6 3.6 - 5.2 mEq/L [facility] Chloride 104 96 - 110 mEq/L [facility] CO2 29 24 - 32 mEq/L [facility] 10/16/2004 0:18 EDT 10/16/2004 0:18 EDT Hilton Álvarez MD CHEMISTRY & BLOOD GAS ORDE RABREBECA Final Result Performing Organization Address [facility] de Phone Number [facility] [address] [place] [address] * OSMOLALITY, URINE (10/16/2004 0:18 EDT) Osmolality, Ur 276 MOS/KG MELONIETEA ROJAS [facility] 10/16/2004 0:18 EDT 10/16/2004 0:18 EDT Hilton Álvarez MD URINALYSIS ORDERABLES Jacquie l Result Performing Organization Address [facility] Phone Number [facility] [address] [place] [address] * SODIUM, URINE RANDOM (10/16/2004 0:18 EDT) Sodium, Ur 60.0 mEq/L [facility] 10/16/2004 0:18 EDT 10/16/2004 0:18 EDT Hilton Álvarez MD URINALYSIS ORDERABLES Jacquie l Result Performing Organization Address [facility] de Phone Number [facility] [address] [place] [address] * SODIUM (10/15/2004 21:55 EDT) Sodium 141 136 - 145 mEq/L [facility] 10/15/2004 21:5 5 EDT 10/15/2004 21:55 EDT us Hilton Álvarez MD CHEMISTRY & BLOOD GAS ORDE RABREBECA Final Result Performing Organization Address [facility] de Phone Number [facility] [address] [place] [address] * OSMOLALITY, URINE (10/15/2004 20:04 EDT) Osmolality, Ur 117 MOS/KG [facility]LLY ROJAS [facility] 10/15/2004 20:0 4 EDT 10/15/2004 20:04 EDT Hilton Álvarez MD URINALYSIS ORDERABLES Jacquie l Result Performing Organization Address [facility] de Phone Number [facility] [address] [place] [address] * SODIUM, URINE RANDOM (10/15/2004 20:04 EDT) Sodium, Ur 29.0 mEq/L [facility] 10/15/2004 20:0 4 EDT 10/15/2004 20:04 EDT Hilton Álvarez MD URINALYSIS ORDERABLES Jacquie l Result Performing Organization Address [facility] de Phone Number [facility] [address] [place] [address] * OSMOLALITY (10/15/2004 20:04 EDT) Osmolality Cintia 285 MOS/KG SHERI ALMEIDA [facility] 10/15/2004 20:0 4 EDT 10/15/2004 20:04 EDT Hilton Álvarez MD CHEMISTRY & BLOOD GAS HERMES HANNON Final Result Performing Organization Address [facility] de Phone Number [facility] [address] [place] [address] * ELECTROLYTES (10/15/2004 20:04 EDT) Sodium 136 136 - 145 mEq/L [facility] Potassium 3.6 3.6 - 5.2 mEq/L [facility] Chloride 99 96 - 110 mEq/L [facility] CO2 29 24 - 32 mEq/L [facility] 10/15/2004 20:0 4 EDT 10/15/2004 20:04 EDT Hilton Álvarez MD CHEMISTRY & BLOOD GAS HERMES HANNON Final Result Performing Organization Address City/[facility]/ZIP Co de Phone Number [facility] [address] [place] [address] * (ABNORMAL) HEMAGRAM (10/15/2004 20:04 EDT) WBC [...] S Final Result Performing Organization Address [facility] de Phone Number [facility] [address] [place] [address] * (ABNORMAL) SODIUM (10/15/2004 18:23 EDT) Sodium 133(L) 136 - 145 mEq/L [facility] 10/15/2004 18:2 3 EDT 10/15/2004 18:27 EDT us Hilton Álvarez MD CHEMISTRY & BLOOD GAS HERMSE HANNON Final Result Performing Organization Address City/[facility]/ZIP Co de Phone Number [facility] [address] [place] [address] * OSMOLALITY, URINE (10/15/2004 16:23 EDT) Osmolality, Ur 405 MOS/KG [facility] 10/15/2004 16:2 3 EDT 10/15/2004 16:23 EDT Hilton Álvarez MD URINALYSIS ORDERABLES Jacquie l Result Performing Organization Address [facility] de Phone Number [facility] [address] [place] [address] * SODIUM, URINE RANDOM (10/15/2004 16:23 EDT) Sodium, Ur 96.0 mEq/L [facility] 10/15/2004 16:2 3 EDT 10/15/2004 16:23 EDT Hilton Álvarez MD URINALYSIS ORDERABLES Jacquie l Result Performing Organization Address [facility] Phone Number [facility] [address] [place] [address] * GLUCOSE, SERUM (10/15/2004 16:22 EDT) Glucose, Serum 97 70 - 110 mg/dl [facility] 10/15/2004 16:2 2 EDT 10/15/2004 16:22 EDT Hilton Álvarez MD CHEMISTRY & BLOOD GAS ORDE RABLES Final Result Performing Organization Address [facility] de Phone Number [facility] [address] [place] [address] * OSMOLALITY (10/15/2004 16:22 EDT) Osmolality Cintia 269 MOS/KG SHERI ALMEIDA [facility] 10/15/2004 16:2 2 EDT 10/15/2004 16:22 EDT Hilton Álvarez MD CHEMISTRY & BLOOD GAS ORDE RABLES Final Result Performing Organization Address [facility] de Phone Number [facility] [address] [place] [address] * (ABNORMAL) ELECTROLYTES (10/15/2004 16:22 EDT) Sodium [...] RABLES Final Result [facility] [address] [place] [address] * (ABNORMAL) SODIUM (10/15/2004 14:04 EDT) Sodium 129(L) 136 - 145 mEq/L [facility] Comment:Heparinized plasma. 10/15/2004 14:0 4 EDT 10/15/2004 14:04 EDT Hilton Álvarez MD CHEMISTRY & BLOOD GAS ORDE RABLES Final Result Performing Organization Address [facility] de Phone Number [facility] [address] [place] [address] * OSMOLALITY (10/15/2004 12:06 EDT) Osmolality Cintia 275 MOS/KG [facility] 10/15/2004 12:0 6 EDT 10/15/2004 12:06 EDT Hilton Álvarez MD CHEMISTRY & BLOOD GAS ORDE RABLES Final Result Performing Organization Address City/[facility] de Phone Number [facility] [address] [place] [address] * SODIUM (10/15/2004 12:06 EDT) Sodium 136 - 145 mEq/L [facility] 10/15/2004 12:0 6 EDT 10/15/2004 12:06 EDT Hilton Álvarez MD CHEMISTRY & BLOOD GAS ORDEmerald HANNON Final Result Performing Organization Address [facility] de Phone Number [facility] [address] [place] [address] * (ABNORMAL) ELECTROLYTES (10/15/2004 12:06 EDT) Sodium [...] HERMES HANNON Final Result Performing Organization Address [facility] de Phone Number [facility] [address] [place] [address] * OSMOLALITY, URINE (10/15/2004 12:04 EDT) Pathologist [facility] Osmolality, Ur 840 MOS/KG [facility] 10/15/2004 12:0 4 EDT 10/15/2004 12:04 EDT Hilton Álvarez MD URINALYSIS ORDERABLES Jacquie l Result Performing Organization Address [facility] de Phone Number [facility] [address] [place] [address] * SODIUM, URINE RANDOM (10/15/2004 12:04 EDT) Sodium, Ur 243.0 mEq/L [facility] 10/15/2004 12:0 4 EDT 10/15/2004 12:04 EDT Hilton Álvarez MD URINALYSIS ORDERABLES Jacquie l Result Performing Organization Address [facility] de Phone Number [facility] [address] [place] [address] * (ABNORMAL) SODIUM (10/15/2004 10:07 EDT) Sodium 130(L) 136 - 145 mEq/L [facility] Comment:Heparinized plasma. 10/15/2004 10:0 7 EDT 10/15/2004 10:07 EDT Hilton Álvarez MD CHEMISTRY & BLOOD GAS ORDE [facility] Final Result Performing Organization Address [facility] de Phone Number [facility] [address] [place] [address] * OSMOLALITY, URINE (10/15/2004 8:17 EDT) Osmolality, Ur 791 MOS/KG [facility] 10/15/2004 8:17 EDT 10/15/2004 8:17 EDT Hilton Álvarez MD URINALYSIS ORDERABLES Jacquie l Result Performing Organization Address [facility] Co de Phone Number [facility] [address] [place] [address] * SODIUM, URINE RANDOM (10/15/2004 8:17 EDT) Sodium, Ur 254.0 mEq/L [facility] 10/15/2004 8:17 EDT 10/15/2004 8:17 EDT Hilton Álvarez MD URINALYSIS ORDERABLES Jacquie l Result Performing Organization Address [facility] de Phone Number [facility] [address] [place] [address] * URINE MICROSCOPIC (10/15/2004 8:17 EDT) WBC, [...] [facility] Mucus, UA Present [facility] Additional Findings Amorphous material present [facility] 10/15/2004 8:17 EDT 10/15/2004 8:17 EDT Hilton Álvarez MD URINALYSIS ORDERABLES Jacquie nur Result Performing Organization Address [facility] de Phone Number [facility] [address] [place] [address] * (ABNORMAL) URINALYSIS (10/15/2004 8:17 EDT) Color, UA Yellow [facility] Clarity, UA Clear [facility] Glucose, UA Norm NORM [facility] Bilirubin, UA Neg NEG [facility] Ketones, UA Neg NEG [facility] Specific Bedias, Urine 1.020 1.005 - 1.02 [facility] [...] ORDERABLES Jacquie l Result Performing Organization Address [facility] de Phone Number [facility] [address] [place] [address] * TESTS ADDED BY PHONE (10/15/2004 8:17 EDT) Tests to be added UA [facility] 10/15/2004 8:17 EDT 10/15/2004 8:17 EDT Hilton Álvarez MD CHEMISTRY & BLOOD GAS ORDE RABLES Final Result Performing Organization Address [facility] de Phone Number [facility] [address] [place] [address] * OSMOLALITY (10/15/2004 8:16 EDT) Osmolality Cintia 271 MOS/KG SHERI ALMEIDA [facility] 10/15/2004 8:16 EDT 10/15/2004 8:16 EDT Hilton Álvarez MD CHEMISTRY & BLOOD GAS ORDE RABLES Final Result Performing Organization Address [facility] de Phone Number [facility] [address] [place] [address] * (ABNORMAL) ELECTROLYTES (10/15/2004 8:16 EDT) Pathologist [facility] Sodium 131(L) 136 - 145 mEq/L [facility] Potassium 3.6 3.6 - 5.2 mEq/L [facility] Chloride 98 96 - 110 mEq/L [facility] CO2 29 24 - 32 mEq/L [facility] 10/15/2004 8:16 EDT 10/15/2004 8:16 EDT Hilton Álvarez MD CHEMISTRY & BLOOD GAS ORDE RABLES Final Result Performing Organization Address [facility] de Phone Number [facility] [address] [place] [address] * OSMOLALITY, URINE (10/15/2004 4:21 EDT) Osmolality, Ur 587 MOS/KG [facility] 10/15/2004 4:21 EDT 10/15/2004 4:21 EDT Hilton Álvarez MD URINALYSIS ORDERABLES Jacquie l Result Performing Organization Address City/[facility] de Phone Number [facility] [address] [place] [address] * SODIUM, URINE RANDOM (10/15/2004 4:21 EDT) Pathologist [facility] Sodium, Ur 189.0 mEq/L [facility] 10/15/2004 4:21 EDT 10/15/2004 4:21 EDT Hilton Álvarez MD URINALYSIS ORDERABLES Jacquie l Result Performing Organization Address [facility] de Phone Number [facility] [address] [place] [address] * GLUCOSE, SERUM (10/15/2004 4:21 EDT) [facility] Glucose, Serum 110 70 - 110 mg/dl [facility] 10/15/2004 4:21 EDT 10/15/2004 4:21 EDT Hilton Álvarez MD CHEMISTRY & BLOOD GAS ORDE RABLES Final Result Performing Organization Address [facility] de Phone Number [facility] [address] [place] [address] * PTT (10/15/2004 4:21 EDT) [facility] PTT 27 23 - 34 secs [facility] Comment:Therapeutic Heparin range: 72-120 seconds 10/15/2004 4:21 EDT 10/15/2004 4:21 EDT Hilton Álvarez MD HEMATOLOGY & PF4 ORDERABLE S Final Result Performing Organization Address [facility] de Phone Number [facility] [address] [place] [address] * (ABNORMAL) PROTIME (10/15/2004 4:21 EDT) [facility] Pro Time 14.9(H) 12.3 - 14.7 secs [facility] I.N.R. 1.1 0.9 - 1.1 Ratio [facility] Comment: Moderate Intensity Coumadin INR = 2.0-3.0 Adjustments in anticoagulant therapy dose should be based upon the INR and NOT the Pro Time. 10/15/2004 4:21 EDT 10/15/2004 4:21 EDT Hilton Álvarez MD HEMATOLOGY & PF4 ORDERABLE S Final Result Performing Organization Address [facility] de Phone Number [facility] [address] [place] [address] * OSMOLALITY (10/15/2004 4:21 EDT) Pathologist [facility] Osmolality Cintia 270 MOS/KG SHERI [facility] 10/15/2004 4:21 EDT 10/15/2004 4:21 EDT Hilton Álvarez MD CHEMISTRY & BLOOD GAS ORDEmerald HANNON Final Result Performing Organization Address [facility] de Phone Number [facility] [address] [place] [address] * (ABNORMAL) ELECTROLYTES (10/15/2004 4:21 EDT) [facility] Sodium 126(L) 136 - 145 mEq/L [facility] Potassium 3.5(L) 3.6 - 5.2 mEq/L [facility] Chloride 90(L) 96 - 110 mEq/L [facility] CO2 30 24 - 32 mEq/L [facility] 10/15/2004 4:21 EDT 10/15/2004 4:21 EDT Hilton Álvarez MD CHEMISTRY & BLOOD GAS ORDEmerald HANNON Final Result Performing Organization Address [facility] de Phone Number [facility] [address] [place] [address] * CREATININE (10/15/2004 4:21 EDT) [facility] Creatinine 0.6 0.6 - 1.2 mg/dl [facility] 10/15/2004 4:21 EDT 10/15/2004 4:21 EDT us Hilton Álvarez MD HISTORICAL LAB FOR SQ LOAD Final Result Performing Organization Address City/[facility]/ZIP Co de Phone Number [facility] [address] [place] [address] * (ABNORMAL) HEMAGRAM AND DIFFERENTIAL (10/15/2004 4:21 [...] ORDER LYNDSEY Final Result Performing Organization Address City/[facility]/ZIP Co de Phone Number [facility] [address] [place] [address] * BUN (10/15/2004 4:21 EDT) BUN 12 8 - 21 mg/dl [facility] 10/15/2004 4:21 EDT 10/15/2004 4:21 EDT Hilton Álvarez MD CHEMISTRY & BLOOD GAS ORDE RABLES Final Result Performing Organization Address [facility] Phone Number [facility] [address] [place] [address] * OSMOLALITY, URINE (10/15/2004 0:55 EDT) Osmolality, Ur 646 MOS/KG HOLLY ROJAS [facility] 10/15/2004 0:55 EDT 10/15/2004 0:55 EDT Hilton Álvarez MD URINALYSIS ORDERABLES Jacquie l Result Performing Organization Address [facility] de Phone Number [facility] [address] [place] [address] * SODIUM, URINE RANDOM (10/15/2004 0:55 EDT) Sodium, Ur 258.0 mEq/L [facility] 10/15/2004 0:55 EDT 10/15/2004 0:55 EDT Hilton Álvarez MD URINALYSIS ORDERABLES Jacquie l Result Performing Organization Address [facility] de Phone Number [facility] [address] [place] [address] * OSMOLALITY (10/15/2004 0:54 EDT) Osmolality Cintia 266 MOS/KG MELONIENoe ELLE [facility] 10/15/2004 0:54 EDT 10/15/2004 0:54 EDT Hilton Álvarez MD CHEMISTRY & BLOOD GAS ORDE RABLES Final Result Performing Organization Address [facility] de Phone Number [facility] [address] [place] [address] * (ABNORMAL) ELECTROLYTES (10/15/2004 0:54 EDT) Sodium 127(L) 136 - 145 mEq/L [facility] Potassium 3.6 3.6 - 5.2 mEq/L [facility] Chloride 92(L) 96 - 110 mEq/L [facility] CO2 29 24 - 32 mEq/L [facility] 10/15/2004 0:54 EDT 10/15/2004 0:54 EDT Hilton Álvarez MD CHEMISTRY & BLOOD GAS ORDE RIDDHI Final Result Performing Organization Address City/[facility]/ZIP Co de Phone Number [facility] [address] [place] [address] * SODIUM, URINE RANDOM (10/14/2004 22:05 EDT) Sodium, Ur 148.0 mEq/L [facility] 10/14/2004 22:0 5 EDT 10/14/2004 22:05 EDT Hilton Álvarez MD URINALYSIS ORDERABLES Jacquie l Result Performing Organization Address [facility] de Phone Number [facility] [address] [place] [address] * (ABNORMAL) SODIUM (10/14/2004 21:44 EDT) Sodium 130(L) 136 - 145 mEq/L [facility] 10/14/2004 21:4 4 EDT 10/14/2004 22:05 EDT Hilton Álvarez MD CHEMISTRY & BLOOD GAS ORDE RABLES Final Result Performing Organization Address [facility] de Phone Number [facility] [address] [place] [address] * (ABNORMAL) GLUCOSE, SERUM (10/14/2004 20:25 EDT) Glucose, Serum 125(H) 70 - 110 mg/dl [facility] 10/14/2004 20:2 5 EDT 10/14/2004 20:25 EDT Hilton Álvarez MD CHEMISTRY & BLOOD GAS ORDE RABLES Final Result Performing Organization Address [facility] de Phone Number [facility] [address] [place] [address] * OSMOLALITY (10/14/2004 20:25 EDT) Osmolality Cintia 272 MOS/KG [facility] 10/14/2004 20:2 5 EDT 10/14/2004 20:25 EDT Hilton Álvarez MD CHEMISTRY & BLOOD GAS ORDE RABLES Final Result Performing Organization Address [facility] Phone Number [facility] [address] [place] [address] * (ABNORMAL) ELECTROLYTES (10/14/2004 20:25 EDT) Sodium 130(L) 136 - 145 mEq/L [facility] Potassium 3.7 3.6 - 5.2 mEq/L [facility] Chloride 94(L) 96 - 110 mEq/L [facility] CO2 29 24 - 32 mEq/L [facility] 10/14/2004 20:2 5 EDT 10/14/2004 20:25 EDT Hilton Álvarez MD CHEMISTRY & BLOOD GAS ORDE RABLES Final Result Performing Organization Address [facility] de Phone Number [facility] [address] [place] [address] * CREATININE (10/14/2004 20:25 EDT) Creatinine 0.6 0.6 - 1.2 mg/dl [facility] 10/14/2004 20:2 5 EDT 10/14/2004 20:25 EDT Hilton Álvarez MD HISTORICAL LAB FOR SQ LOAD Final Result [facility] [address] [place] [address] * BUN (10/14/2004 20:25 EDT) BUN 13 8 - 21 mg/dl [facility] 10/14/2004 20:2 5 EDT 10/14/2004 20:25 EDT Hilton Álvarez MD CHEMISTRY & BLOOD GAS ORDE RABLES Final Result Performing Organization Address [facility]/ZIP Co de Phone Number [facility] [address] [place] [address] * OSMOLALITY, URINE (10/14/2004 20:25 EDT) Osmolality, Ur 697 MOS/KG [facility] 10/14/2004 20:2 5 EDT 10/14/2004 20:25 EDT Hilton Álvarez MD URINALYSIS ORDERABLES Jacquie l Result Performing Organization Address [facility] de Phone Number [facility] [address] [place] [address] * SODIUM, URINE RANDOM (10/14/2004 20:25 EDT) Sodium, Ur 275.0 mEq/L [facility] 10/14/2004 20:2 5 EDT 10/14/2004 20:25 EDT Hilton Álvarez MD URINALYSIS ORDERABLES Jacquie l Result Performing Organization Address [facility] de Phone Number [facility] [address] [place] [address] * (ABNORMAL) GLUCOSE, SERUM (10/14/2004 15:58 EDT) Glucose, Serum 113(H) 70 - 110 mg/dl [facility] 10/14/2004 15:5 8 EDT 10/14/2004 16:03 EDT Hilton Álvarez MD CHEMISTRY & BLOOD GAS ORDEmerald HANNON Final Result Performing Organization Address [facility] de Phone Number [facility] [address] [place] [address] * OSMOLALITY (10/14/2004 15:58 EDT) Osmolality Cintia 285 MOS/KG [facility] 10/14/2004 15:5 8 EDT 10/14/2004 16:03 EDT Hilton Álvarez MD CHEMISTRY & BLOOD GAS HERMES HANNON Final Result Performing Organization Address [facility] Phone Number [facility] [address] [place] [address] * (ABNORMAL) ELECTROLYTES (10/14/2004 15:58 EDT) Sodium 133(L) 136 - 145 mEq/L [facility] Potassium 3.9 3.6 - 5.2 mEq/L [facility] Chloride 100 96 - 110 mEq/L [facility] CO2 27 24 - 32 mEq/L [facility] 10/14/2004 15:5 8 EDT 10/14/2004 16:03 EDT Hilton Álvarez MD CHEMISTRY & BLOOD GAS HERMES HANNON Final Result Performing Organization Address [facility] de Phone Number [facility] [address] [place] [address] * OSMOLALITY, URINE (10/14/2004 15:57 EDT) Osmolality, Ur 823 MOS/KG [facility] 10/14/2004 15:5 7 EDT 10/14/2004 16:02 EDT Hilton Álvarez MD URINALYSIS ORDERABLES Jacquie l Result Performing Organization Address [facility]/ZIP Co de Phone Number [facility] [address] [place] [address] * SODIUM, URINE RANDOM (10/14/2004 15:57 EDT) Sodium, Ur 265.0 mEq/L [facility] 10/14/2004 15:5 7 EDT 10/14/2004 16:02 EDT us Hilton Álvarez MD URINALYSIS ORDERABLES Jcaquie liudmila Result [facility] [address] [place] [address] * CT HEAD WO CONTRAST (10/14/2004 13:25 [...] seen in the left ethmoid air cells. /giullermo Narrative 03/02/2009 16:36 EDT H/O S/P CRANIOPHARYNGIOMA [...] seen in the left ethmoid air cells. /[facility] Trice Scott MD IMG CT ORDERABLES Final Re sult * OSMOLALITY, URINE (10/14/2004 11:49 EDT) Osmolality, Ur 888 MOS/KG HO[facility] 10/14/2004 11:4 9 EDT 10/14/2004 11:49 EDT Hilton Álvarez MD URINALYSIS ORDERABLES Jacquie l Result [facility] [address] [place] [address] * SODIUM, URINE RANDOM (10/14/2004 11:49 EDT) Sodium, Ur 249.0 mEq/L [facility] 10/14/2004 11:4 9 EDT 10/14/2004 11:49 EDT us Hilton Álvarez MD URINALYSIS ORDERABLES Jacquie l Result Performing Organization Address City/[facility]/ZIP Co de Phone Number [facility] [address] [place] [address] * OSMOLALITY (10/14/2004 11:48 EDT) Osmolality Cintia 283 MOS/KG SHERI ALMEIDA [facility] 10/14/2004 11:4 8 EDT 10/14/2004 11:48 EDT Hilton Álvarez MD CHEMISTRY & BLOOD GAS ORDEmerald HANNON Final Result Performing Organization Address [facility] de Phone Number [facility] [address] [place] [address] * (ABNORMAL) ELECTROLYTES (10/14/2004 11:48 EDT) Sodium [...] ORDEmerald HANNON Final Result Performing Organization Address [facility] de Phone Number [facility] [address] [place] [address] * OSMOLALITY, URINE (10/14/2004 8:01 EDT) Osmolality, Ur 899 MOS/KG HOLLY [facility] 10/14/2004 8:01 EDT 10/14/2004 8:01 EDT Hilton Álvarez MD URINALYSIS ORDERABLES Jacquie l Result Performing Organization Address City/[facility]/ZIP Co de Phone Number [facility] [address] [place] [address] * SODIUM, URINE RANDOM (10/14/2004 8:01 EDT) Sodium, Ur 287.0 mEq/L [facility] 10/14/2004 8:01 EDT 10/14/2004 8:01 EDT Hilton Álvarez MD URINALYSIS ORDERABLES Jacquie l Result Performing Organization Address [facility] de Phone Number [facility] [address] [place] [address] * OSMOLALITY (10/14/2004 8:01 EDT) Osmolality Cintia 286 MOS/KG [facility] 10/14/2004 8:01 EDT 10/14/2004 8:01 EDT Hilton Álvarez MD CHEMISTRY & BLOOD GAS ORDE RABREBECA Final Result Performing Organization Address [facility] Phone Number [facility] [address] [place] [address] * (ABNORMAL) ELECTROLYTES (10/14/2004 8:01 EDT) Sodium 139 136 - 145 mEq/L [facility] Potassium 3.2(L) 3.6 - 5.2 mEq/L [facility] Chloride 105 96 - 110 mEq/L [facility] CO2 28 24 - 32 mEq/L [facility] 10/14/2004 8:01 EDT 10/14/2004 8:01 EDT Hilton Álvarez MD CHEMISTRY & BLOOD GAS ORDE RABLES Final Result Performing Organization Address [facility] de Phone Number [facility] [address] [place] [address] * GLUCOSE, SERUM (10/14/2004 4:22 EDT) Glucose, Serum 99 70 - 110 mg/dl [facility] 10/14/2004 4:22 EDT 10/14/2004 4:22 EDT Hilton Álvarez MD CHEMISTRY & BLOOD GAS ORDE RABLES Final Result Performing Organization Address [facility] de Phone Number [facility] [address] [place] [address] * PTT (10/14/2004 4:22 EDT) PTT 25 23 - 34 secs [facility] Comment:Therapeutic Heparin range: 72-120 seconds 10/14/2004 4:22 EDT 10/14/2004 4:22 EDT Hilton Álvarez MD HEMATOLOGY & PF4 ORDERABLE S Final Result Performing Organization Address [facility] Phone Number [facility] [address] [place] [address] * (ABNORMAL) PROTIME (10/14/2004 4:22 EDT) Pro [...] ORDERABLE S Final Result Performing Organization Address [facility] de Phone Number [facility] [address] [place] [address] * OSMOLALITY (10/14/2004 4:22 EDT) Osmolality Cintia 291 MOS/KG SHERI [facility] 10/14/2004 4:22 EDT 10/14/2004 4:22 EDT Hilton Álvarez MD CHEMISTRY & BLOOD GAS ORDE RABLES Final Result Performing Organization Address [facility] de Phone Number [facility] [address] [place] [address] * (ABNORMAL) ELECTROLYTES (10/14/2004 4:22 EDT) Pathologist [facility] Sodium 137 136 - 145 mEq/L [facility] Potassium 3.3(L) 3.6 - 5.2 mEq/L [facility] Chloride 103 96 - 110 mEq/L [facility] CO2 31 24 - 32 mEq/L [facility] 10/14/2004 4:22 EDT 10/14/2004 4:22 EDT Hilton Álvarez MD CHEMISTRY & BLOOD GAS ORDE RABLES Final Result Performing Organization Address [facility] de Phone Number [facility] [address] [place] [address] * CREATININE (10/14/2004 4:22 EDT) Pathologist [facility] Creatinine 0.8 0.6 - 1.2 mg/dl [facility] 10/14/2004 4:22 EDT 10/14/2004 4:22 EDT Hilton Álvarez MD HISTORICAL LAB FOR SQ LOAD Final Result Performing Organization Address [facility] de Phone Number [facility] [address] [place] [address] * (ABNORMAL) HEMAGRAM AND DIFFERENTIAL (10/14/2004 4:22 EDT) Pathologist [facility] WBC 11.30 4.5 - 13.0 K/cmm [facility] [...] ORDER LYNDSEY Final Result Performing Organization Address [facility] de Phone Number [facility] [address] [place] [address] * BUN (10/14/2004 4:22 EDT) BUN 16 8 - 21 mg/dl [facility] 10/14/2004 4:22 EDT 10/14/2004 4:22 EDT Hilton Álvarez MD CHEMISTRY & BLOOD GAS ORDE RABLES Final Result Performing Organization Address [facility] de Phone Number [facility] [address] [place] [address] * REFRACTOMETER SPECIFIC GRAVITY, URINE (10/14/2004 4:21 EDT) Refractometer SG,Urine 1.019 1.005 - 1.02 [facility] 10/14/2004 4:21 EDT 10/14/2004 4:21 EDT Hilton Álvarez MD URINALYSIS ORDERABLES Jacquie l Result Performing Organization Address [facility] de Phone Number [facility] [address] [place] [address] * OSMOLALITY, URINE (10/14/2004 4:21 EDT) Osmolality, Ur 852 MOS/KG MELONIETEA HER [facility] 10/14/2004 4:21 EDT 10/14/2004 4:21 EDT Hilton Álvarez MD URINALYSIS ORDERABLES Jacquie l Result Performing Organization Address [facility] Phone Number [facility] [address] [place] [address] * SODIUM, URINE RANDOM (10/14/2004 4:21 EDT) Sodium, Ur 306.0 mEq/L [facility] 10/14/2004 4:21 EDT 10/14/2004 4:21 EDT Hilton Álvarez MD URINALYSIS ORDERABLES Jacquie l Result Performing Organization Address [facility] de Phone Number [facility] [address] [place] [address] * GLUCOSE, SERUM (10/14/2004 0:22 EDT) Pathologist [facility] Glucose, Serum 91 70 - 110 mg/dl [facility] 10/14/2004 0:22 EDT 10/14/2004 0:22 EDT Hilton Álvarez MD CHEMISTRY & BLOOD GAS HERMSE HANNON Final Result Performing Organization Address [facility] de Phone Number [facility] [address] [place] [address] * OSMOLALITY (10/14/2004 0:22 EDT) Osmolality Cintia 290 MOS/KG MELONIENoe ALMEIDA [facility] 10/14/2004 0:22 EDT 10/14/2004 0:22 EDT Hilton Álvarez MD CHEMISTRY & BLOOD GAS ORDE RABLES Final Result Performing Organization Address [facility] de Phone Number [facility] [address] [place] [address] * (ABNORMAL) ELECTROLYTES (10/14/2004 0:22 EDT) Sodium 141 136 - 145 mEq/L [facility] Potassium 3.4(L) 3.6 - 5.2 mEq/L [facility] Chloride 106 96 - 110 mEq/L [facility] CO2 30 24 - 32 mEq/L [facility] 10/14/2004 0:22 EDT 10/14/2004 0:22 EDT Hilton Álvarez MD CHEMISTRY & BLOOD GAS HERMES HANNON Final Result Performing Organization Address [facility] de Phone Number [facility] [address] [place] [address] * OSMOLALITY, URINE (10/14/2004 0:22 EDT) Osmolality, Ur 767 MOS/KG HOLLY [facility]JAS [facility] 10/14/2004 0:22 EDT 10/14/2004 0:22 EDT Hilton Álvarez MD URINALYSIS ORDERABLES Jacquie l Result Performing Organization Address [facility] de Phone Number [facility] [address] [place] [address] * SODIUM, URINE RANDOM (10/14/2004 0:22 EDT) Sodium, Ur 293.0 mEq/L [facility] 10/14/2004 0:22 EDT 10/14/2004 0:22 EDT Hilton Álvarez MD URINALYSIS ORDERABLES Jacquie l Result Performing Organization Address [facility] de Phone Number [facility] [address] [place] [address] * SODIUM (10/13/2004 22:02 EDT) Sodium 143 136 - 145 mEq/L [facility] 10/13/2004 22:0 2 EDT 10/13/2004 22:02 EDT Hilton Álvarez MD CHEMISTRY & BLOOD GAS ORDE RABLES Final Result Performing Organization Address [facility] de Phone Number [facility] [address] [place] [address] * OSMOLALITY (10/13/2004 20:19 EDT) Pathologist [facility] Osmolality Cintia 300 MOS/KG SHERI [facility] 10/13/2004 20:1 9 EDT 10/13/2004 20:19 EDT Hilton Álvarez MD CHEMISTRY & BLOOD GAS ORDE RABLES Final Result Performing Organization Address [facility] de Phone Number [facility] [address] [place] [address] * (ABNORMAL) ELECTROLYTES (10/13/2004 20:19 EDT) Pathologist [facility] Sodium 147(H) 136 - 145 mEq/L [facility] Potassium 3.5(L) 3.6 - 5.2 mEq/L [facility] Chloride 111(H) 96 - 110 mEq/L [facility] CO2 29 24 - 32 mEq/L [facility] 10/13/2004 20:1 9 EDT 10/13/2004 20:19 EDT Hilton Álvarez MD CHEMISTRY & BLOOD GAS ORDE RABLES Final Result Performing Organization Address [facility] de Phone Number [facility] [address] [place] [address] * (ABNORMAL) REFRACTOMETER SPECIFIC GRAVITY, URINE (10/13/2004 20:16 EDT) Pathologist [facility] Refractometer SG,Urine 1.002(L) 1.005 - 1.02 [facility] Comment: Refractometer specific gravity Results greater than 1.035 suggest possible interference from glucose or radiographic dye. 10/13/2004 20:1 6 EDT 10/13/2004 20:16 EDT Hilton Álvarez MD URINALYSIS ORDERABLES Jacquie l Result Performing Organization Address [facility] de Phone Number [facility] [address] [place] [address] * OSMOLALITY, URINE (10/13/2004 20:16 EDT) Osmolality, Ur 87 MOS/KG MELONIETEA ROJAS [facility] 10/13/2004 20:1 6 EDT 10/13/2004 20:16 EDT Hilton Álvarez MD URINALYSIS ORDERABLES Jacquie l Result Performing Organization Address [facility] de Phone Number [facility] [address] [place] [address] * SODIUM, URINE RANDOM (10/13/2004 20:16 EDT) Sodium, Ur 18.0 mEq/L [facility] 10/13/2004 20:1 6 EDT 10/13/2004 20:16 EDT Hilton Álvarez MD URINALYSIS ORDERABLES Jacquie l Result Performing Organization Address [facility] de Phone Number [facility] [address] [place] [address] * SODIUM (10/13/2004 18:38 EDT) Sodium 144 136 - 145 mEq/L [facility] 10/13/2004 18:3 8 EDT 10/13/2004 18:38 EDT us Hilton Álvarez MD CHEMISTRY & BLOOD GAS ORDE RIDDHI Final Result Performing Organization Address [facility] de Phone Number [facility] [address] [place] [address] * SODIUM, URINE RANDOM (10/13/2004 17:34 EDT) Sodium, Ur 17.0 mEq/L [facility] 10/13/2004 17:3 4 EDT 10/13/2004 17:34 EDT us Hilton Álvarez MD URINALYSIS ORDERABLES Jacquie l Result Performing Organization Address [facility] de Phone Number [facility] [address] [place] [address] * OSMOLALITY, URINE (10/13/2004 15:42 EDT) Osmolality, Ur 145 MOS/KG HOLLY [facility]JAS [facility] 10/13/2004 15:4 2 EDT 10/13/2004 15:42 EDT us Hilton Álvarez MD URINALYSIS ORDERABLES Jacquie l Result Performing Organization Address [facility] Phone Number [facility] [address] [place] [address] * SODIUM, URINE RANDOM (10/13/2004 15:42 EDT) Sodium, Ur 16.0 mEq/L [facility] 10/13/2004 15:4 2 EDT 10/13/2004 15:42 EDT us Hilton Álvarez MD URINALYSIS ORDERABLES Jacquie l Result Performing Organization Address [facility] Phone Number [facility] [address] [place] [address] * (ABNORMAL) PHENYTOIN (10/13/2004 15:33 EDT) Phenytoin [...] ORDE RABLES Final Result Performing Organization Address [facility] de Phone Number [facility] [address] [place] [address] * OSMOLALITY (10/13/2004 15:33 EDT) Osmolality Cintia 294 MOS/KG [facility] 10/13/2004 15:3 3 EDT 10/13/2004 15:33 EDT Hilton Álvarez MD CHEMISTRY & BLOOD GAS ORDE RABLES Final Result Performing Organization Address [facility] de Phone Number [facility] [address] [place] [address] * (ABNORMAL) ELECTROLYTES (10/13/2004 15:33 EDT) Sodium 139 136 - 145 mEq/L [facility] Potassium 3.5(L) 3.6 - 5.2 mEq/L [facility] Chloride 100 96 - 110 mEq/L [facility] CO2 31 24 - 32 mEq/L [facility] 10/13/2004 15:3 3 EDT 10/13/2004 15:33 EDT Hilton Álvarez MD CHEMISTRY & BLOOD GAS ORDE RABLES Final Result Performing Organization Address [facility] de Phone Number [facility] [address] [place] [address] * OSMOLALITY (10/13/2004 12:01 EDT) Osmolality Cintia 280 MOS/KG SHERI ALMEIDA [facility] 10/13/2004 12:0 1 EDT 10/13/2004 12:01 EDT Hilton Álvarez MD CHEMISTRY & BLOOD GAS ORDE RABLES Final Result Performing Organization Address [facility]/ZIP Co de Phone Number [facility] [address] [place] [address] * (ABNORMAL) ELECTROLYTES (10/13/2004 12:01 EDT) Sodium 135(L) 136 - 145 mEq/L [facility] Potassium 3.7 3.6 - 5.2 mEq/L [facility] Chloride 100 96 - 110 mEq/L [facility] CO2 30 24 - 32 mEq/L [facility] 10/13/2004 12:0 1 EDT 10/13/2004 12:01 EDT Hilton Álvarez MD CHEMISTRY & BLOOD GAS ORDE RABLES Final Result Performing Organization Address [facility] de Phone Number [facility] [address] [place] [address] * BACTERIAL CULTURE/SMEAR, RESPIRATORY (10/13/2004 12:00 EDT) Specimen Description Sputum [facility] Gram Smear Result Many Polys Few Squamous epithelial cells Alveolar macrophages present Respiratory epithelial cells present No bacteria seen [facility] Result No growth [facility] Report Status Final [id number] [facility] 10/13/2004 12:0 0 EDT 10/13/2004 12:21 EDT Hilton Álvarez MD MICROBIOLOGY - GENERAL ORD ERABLES Final Result Performing Organization Address [facility] de Phone Number [facility] [address] [place] [address] * UA REFLEX (10/13/2004 12:00 EDT) UA Billing Microscopic not indicated. [facility] 10/13/2004 12:0 0 EDT 10/13/2004 12:00 EDT Hilton Álvarez MD URINALYSIS ORDERABLES Jacquie l Result Performing Organization Address [facility] de Phone Number [facility] [address] [place] [address] * SODIUM, URINE RANDOM (10/13/2004 12:00 EDT) Sodium, Ur 49.0 mEq/L [facility] 10/13/2004 12:0 0 EDT 10/13/2004 12:00 EDT Hilton Álvarez MD URINALYSIS ORDERABLES Jacquie l Result Performing Organization Address [facility] de Phone Number [facility] [address] [place] [address] * URINALYSIS (10/13/2004 12:00 EDT) Color, UA Yellow [facility] Clarity, UA Cloudy [facility] Glucose, UA Norm NORM [facility] Bilirubin, UA Neg NEG [facility] Ketones, UA Neg NEG [facility] Specific Bedias, Urine 1.020 1.005 - 1.02 [facility] [...] ORDERABLES Jacquie l Result Performing Organization Address [facility] de Phone Number [facility] [address] [place] [address] * CT HEAD WO CONTRAST (10/13/2004 10:50 [...] growth [facility] Report Status Final [id number] [facility] 10/13/2004 10:2 5 EDT 10/13/2004 11:42 EDT Hilton Álvarez MD MICROBIOLOGY - GENERAL ORD ERABLES Final Result Performing Organization Address [facility] de Phone Number [facility] [address] [place] [address] * BACTERIAL CULTURE, BLOOD (10/13/2004 10:15 EDT) Specimen Description Blood Arterial Line [facility] Result No growth [facility] Report Status Final [id number] [facility] 10/13/2004 10:1 5 EDT 10/13/2004 11:41 EDT Hilton Álvarez MD MICROBIOLOGY - GENERAL ORD ERABLES Final Result Performing Organization Address [facility] de Phone Number [facility] [address] [place] [address] * (ABNORMAL) REFRACTOMETER SPECIFIC GRAVITY, URINE (10/13/2004 8:19 EDT) Pathologist [facility] Refractometer SG,Urine 1.052(H) 1.005 - 1.02 [facility] Comment: Refractometer specific gravity Results greater than 1.035 suggest possible interference from glucose or radiographic dye. 10/13/2004 8:19 EDT 10/13/2004 8:19 EDT Hilton Álvarez MD URINALYSIS ORDERABLES Jacquie l Result Performing Organization Address [facility] de Phone Number [facility] [address] [place] [address] * OSMOLALITY (10/13/2004 8:16 EDT) Osmolality Cintia 287 MOS/KG SHERI [facility] 10/13/2004 8:16 EDT 10/13/2004 8:16 EDT Hilton Álvarez MD CHEMISTRY & BLOOD GAS ORDE [facility] Final Result Performing Organization Address [facility] de Phone Number [facility] [address] [place] [address] * (ABNORMAL) ELECTROLYTES (10/13/2004 8:16 EDT) Pathologist [facility] Sodium 133(L) 136 - 145 mEq/L [facility] Potassium 3.8 3.6 - 5.2 mEq/L [facility] Chloride 99 96 - 110 mEq/L [facility] CO2 27 24 - 32 mEq/L [facility] 10/13/2004 8:16 EDT 10/13/2004 8:16 EDT Hilton Álvarez MD CHEMISTRY & BLOOD GAS ORDE [facility] Final Result Performing Organization Address [facility] de Phone Number [facility] [address] [place] [address] * PORTABLE CHEST 1 VIEW (10/13/2004 7:00 [...] * PTT (10/13/2004 5:52 EDT) Pathologist [facility] PTT 27 23 - 34 secs [facility] Comment:Therapeutic Heparin range: 72-120 seconds 10/13/2004 5:52 EDT 10/13/2004 5:52 EDT Result [facility] Hilton Álvarez MD HEMATOLOGY & PF4 ORDERABLE S Final Result [facility] [address] [place] [address] * (ABNORMAL) PROTIME (10/13/2004 5:52 EDT) Pro [...] ORDERABLE S Final Result Performing Organization Address City/[facility]/ZIP Co de Phone Number [facility] [address] [place] [address] * CREATININE (10/13/2004 5:52 EDT) Creatinine 0.7 0.6 - 1.2 mg/dl [facility] 10/13/2004 5:52 EDT 10/13/2004 5:52 EDT us Hilton Álvarez MD HISTORICAL LAB FOR SQ LOAD Final Result Performing Organization Address [facility] de Phone Number [facility] [address] [place] [address] * (ABNORMAL) HEMAGRAM (10/13/2004 5:52 EDT) WBC [...] ORDERABLE S Final Result Performing Organization Address City/[facility] de Phone Number [facility] [address] [place] [address] * BUN (10/13/2004 5:52 EDT) BUN 16 8 - 21 mg/dl [facility] 10/13/2004 5:52 EDT 10/13/2004 5:52 EDT Hilton Álvarez MD CHEMISTRY & BLOOD GAS HERMES HANNON Final Result Performing Organization Address [facility] de Phone Number [facility] [address] [place] [address] * (ABNORMAL) BLOOD GAS, G3 ISTAT (10/13/2004 [...] [facility] Sample Type Arterial ANISHA MCF[facility] budget controller ID [id number] Test Performed by Respiratory [facility] 10/13/2004 4:34 EDT 10/13/2004 5:03 EDT Hilton Álvarez MD CHEMISTRY & BLOOD GAS HERMES HANNON Final Result Performing Organization Address [facility] Phone Number [facility] [address] [place] [address] * (ABNORMAL) REFRACTOMETER SPECIFIC GRAVITY, URINE (10/13/2004 4:33 EDT) Refractometer SG,Urine 1.036(H) 1.005 - 1.02 [facility] Comment: Refractometer specific gravity Results greater than 1.035 suggest possible interference from glucose or radiographic dye. 10/13/2004 4:33 EDT 10/13/2004 4:33 EDT us Hilton Álvarez MD URINALYSIS ORDERABLES Jacquie l Result Performing Organization Address [facility] de Phone Number [facility] [address] [place] [address] * SODIUM, URINE RANDOM (10/13/2004 4:33 EDT) Sodium, Ur 168.0 mEq/L [facility] 10/13/2004 4:33 EDT 10/13/2004 4:33 EDT Hilton Álvarez MD URINALYSIS ORDERABLES Jacquie l Result Performing Organization Address [facility] de Phone Number [facility] [address] [place] [address] * OSMOLALITY (10/13/2004 4:15 EDT) Osmolality Cintia 287 MOS/KG SHERI [facility] 10/13/2004 4:15 EDT 10/13/2004 4:33 EDT Hilton Álvarez MD CHEMISTRY & BLOOD GAS ORDEmerald HANNON Final Result Performing Organization Address [facility] de Phone Number [facility] [address] [place] [address] * (ABNORMAL) ELECTROLYTES (10/13/2004 4:15 EDT) Sodium 135(L) 136 - 145 mEq/L [facility] Potassium 3.7 3.6 - 5.2 mEq/L [facility] Chloride 101 96 - 110 mEq/L [facility] CO2 25 24 - 32 mEq/L [facility] 10/13/2004 4:15 EDT 10/13/2004 4:33 EDT Hilton Álvarez MD CHEMISTRY & BLOOD GAS ORDE RABREBECA Final Result Performing Organization Address [facility] de Phone Number [facility] [address] [place] [address] * SODIUM (10/13/2004 2:03 EDT) Sodium 138 136 - 145 mEq/L [facility] 10/13/2004 2:03 EDT 10/13/2004 2:03 EDT Hilton Álvarez MD CHEMISTRY & BLOOD GAS ORDE [facility] Final Result Performing Organization Address [facility] de Phone Number [facility] [address] [place] [address] * (ABNORMAL) BLOOD GAS, G3 ISTAT (10/13/2004 [...] [facility] Sample Type Arterial [facility] budget controller ID [id number] Test Performed by Respiratory [facility] 10/13/2004 0:01 EDT 10/13/2004 5:02 EDT Hilton Álvarez MD CHEMISTRY & BLOOD GAS [facility] Final Result Performing Organization Address [facility] de Phone Number [facility] [address] [place] [address] * PORTABLE CHEST 1 VIEW (10/12/2004 23:30 EDT) Anatomical Region Laterality Modality Other 10/12/2004 23:3 0 EDT Impressions 03/02/2009 13:28 EDT IMPRESSION: 1. New mild right lower lobe atelectasis. 2. Satisfactory positioning of tubes. /jv Narrative 03/02/2009 13:28 EDT HX BRAIN TUMOR S/P INTUBATION CHECK ET TUBE R/O EDEMA/EFFUSION PORTABLE CHEST 1 VIEW 10/12/04 7160 Comparison is made with 10/10/04. The endotracheal [...] left ethmoid sinuses. The ventricles are age-appropriate. /[facility] Narrative 03/02/2009 13:28 EDT S/P SUPRACELLAR [...] left ethmoid sinuses. The ventricles are age-appropriate. /[facility] us Tony Gómez MD IMG CT ORDERABLES Final R esult * OSMOLALITY, URINE (10/12/2004 23:00 EDT) Osmolality, Ur 803 MOS/KG MELONIE [facility] 10/12/2004 23:0 0 EDT 10/12/2004 23:25 EDT Hilton Álvarez MD URINALYSIS ORDERABLES Jacquie nur Result [facility] [address] [place] [address] * SODIUM, URINE RANDOM (10/12/2004 23:00 EDT) Sodium, Ur 115.0 mEq/L [facility] 10/12/2004 23:0 0 EDT 10/12/2004 23:25 EDT Hilton Álvarez MD URINALYSIS ORDERABLES Jacquie l Result Performing Organization Address [facility] de Phone Number [facility] [address] [place] [address] * PTT (10/12/2004 23:00 EDT) Pathologist [facility] PTT 28 23 - 34 secs [facility] Comment:Therapeutic Heparin range: 72-120 seconds 10/12/2004 23:0 0 EDT 10/12/2004 23:25 EDT Hilton Álvarez MD HEMATOLOGY & PF4 ORDERABLE S Final Result Performing Organization Address [facility] Phone Number [facility] [address] [place] [address] * (ABNORMAL) PROTIME (10/12/2004 23:00 EDT) Pro [...] ORDERABLE S Final Result Performing Organization Address [facility] de Phone Number [facility] [address] [place] [address] * OSMOLALITY (10/12/2004 23:00 EDT) Osmolality Cintia 294 MOS/KG SHERI ALMEIDA [facility] 10/12/2004 23:0 0 EDT 10/12/2004 23:25 EDT Hilton Álvarez MD CHEMISTRY & BLOOD GAS ORDE RABLES Final Result Performing Organization Address [facility] de Phone Number [facility] [address] [place] [address] * ELECTROLYTES (10/12/2004 23:00 EDT) Sodium 136 136 - 145 mEq/L [facility] Potassium 3.9 3.6 - 5.2 mEq/L [facility] Chloride 103 96 - 110 mEq/L [facility] CO2 26 24 - 32 mEq/L [facility] 10/12/2004 23:0 0 EDT 10/12/2004 23:25 EDT Hilton Álvarez MD CHEMISTRY & BLOOD GAS ORDE RABLES Final Result Performing Organization Address [facility] de Phone Number [facility] [address] [place] [address] * CREATININE (10/12/2004 23:00 EDT) Creatinine 0.8 0.6 - 1.2 mg/dl [facility] 10/12/2004 23:0 0 EDT 10/12/2004 23:25 EDT Hilton Álvarez MD HISTORICAL LAB FOR SQ LOAD Final Result Performing Organization Address [facility] de Phone Number [facility] [address] [place] [address] * (ABNORMAL) HEMAGRAM (10/12/2004 23:00 EDT) WBC 16.05(H) 4.5 - 13.0 K/cmm [facility] RBC 3.73(L) 4.50 - 5.30 M/cmm [facility] Hemoglobin 10.3(L) 13.0 - 16.0 gm/dl [facility] HCT 30.8(L) 37.0 - 49.0 % [facility] MCV 83 78 - 98 fl [facility] MCH 27.6 pg [facility] MCHC 33.5 gm/dl [facility] PLT 366(H) 156 - 312 K/cmm [facility] RDW-CV 15.6 % [facility] 10/12/2004 23:0 0 EDT 10/12/2004 23:25 EDT Hilton Álvarez MD HEMATOLOGY & PF4 ORDERABLE S Final Result Performing Organization Address [facility] de Phone Number [facility] [address] [place] [address] * BUN (10/12/2004 23:00 EDT) BUN 18 8 - 21 mg/dl [facility] 10/12/2004 23:0 0 EDT 10/12/2004 23:25 EDT Hilton Álvarez MD CHEMISTRY & BLOOD GAS ORDE [facility] Final Result Performing Organization Address [facility] de Phone Number [facility] [address] [place] [address] * CT ANGIO HEAD (10/12/2004 22:49 EDT) Anatomical Region Laterality Modality Other 10/12/2004 22:4 9 EDT Narrative 03/02/2009 13:28 EDT 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 VESSELS CT ANGIOGRAPHY OF THE [place]: 10/12/2004, 22:35 PM IMPRESSIONS: Anatomical variation of the [place], but no vascular occlusion is demonstrated. CLINICAL HISTORY: Status post craniopharyngeal resection with clipping bleeding vessel. Evaluate intracranial circulation. TECHNIQUE: Dynamic contrast enhanced scans of the [place] were obtained with off line [...] R/O EVAL. VESSELS CT ANGIOGRAPHY OF THE [place]: 10/12/2004, 22:35 PM IMPRESSIONS: Anatomical variation of the [place], but no vascular occlusion is demonstrated. CLINICAL HISTORY: Status post craniopharyngeal resection with clipping bleeding vessel. Evaluate intracranial circulation. TECHNIQUE: Dynamic contrast enhanced scans of the [place] were obtained with off line [...] [facility] Sample Type Arterial [facility] budget controller ID [id number] Test performed by Anesthesia. [facility] 10/12/2004 19:3 1 EDT 10/13/2004 7:36 EDT us Hilton Álvarez MD CHEMISTRY & BLOOD GAS HERMES [facility] Final Result [facility] [address] [place] [address] * (ABNORMAL) BLOOD GAS, EG6 ISTAT (10/12/2004 [...] [facility] Sample Type Arterial [facility] budget controller ID [id number] Test performed by Anesthesia. [facility] 10/12/2004 16:3 9 EDT 10/13/2004 7:33 EDT us Hilton Álvarez MD CHEMISTRY & BLOOD GAS HERMES HANNON Final Result Performing Organization Address [facility] de Phone Number [facility] [address] [place] [address] * (ABNORMAL) BLOOD GAS, EG6 ISTAT (10/12/2004 [...] [facility] Sample Type Arterial ANISHA [facility] budget controller ID [id number] Test performed by Anesthesia. [facility] 10/12/2004 15:2 9 EDT 10/13/2004 7:32 EDT us Hilton lÁvarez MD CHEMISTRY & BLOOD GAS HERMES HANNON Final Result Performing Organization Address [facility] de Phone Number [facility] [address] [place] [address] * GLUCOSE, GLUCOMETER (10/12/2004 15:21 EDT) Glucose, Fingerstick 109 70 - 110 mg/dl [facility] [employer]vens Supervisor ID [id number] Test Performed by Nursing Services [facility] 10/12/2004 15:2 1 EDT 10/13/2004 7:27 EDT us Hilton Álvarez MD CHEMISTRY & BLOOD GAS ORDE RABLES Final Result [facility] [address] [place] [address] * SURGICAL PATHOLOGY (10/12/2004 0:00 EDT) Pathology Report: SURGICAL PATHOLOGY REPORT Reports generated via electronic interface contain original data; however they are lacking the format of the original report. Caution should be taken when reading/interpreti ng unformatted reports. Name: ? MIGUEL ANGEL BURGOS ? Accession #: ? [id number] ? : ? 1990 (Age: 14) ??M [...] x 0.6 x 0.2 cm in aggregate. Paving Rammer tissue is submitted for scrape preparation and [...] ??(Dr. Sanchez)/klb End of Report [facility] 10/12/2004 10/13/2004 10: 08 EDT Hilton Álvarez MD PATHOLOGY ORDERABLES Final Result [facility] [address] [place] [address] * CHEST PA (10/10/2004 14:35 EDT) Anatomical [...] The bony structures appear normal for age. /[facility] Procedure Note Delgado Valdse Jr., MD / Maxi Kirby MD - 03/03/2009 CYST R/O PICC PLACEMENT RIGHT BASILIC PA CHEST, 10/10/04 HISTORY: Patient status post PICC placement. FINDINGS: There is a right PIC catheter with its tip in the lower SVC near the right atrial junction. The cardiomediastinal silhouette is normal and the lungs are clear. The bony structures appear normal for age. /[facility] Hilton Álvarez MD IMG DIAGNOSTIC IMAGING ORD [...] secondary to the most recent transsphenoidal surgery. [facility] Narrative 03/02/2009 11:36 EDT S/P TRANSPENOIDAL [...] secondary to the most recent transsphenoidal surgery. [facility] us Hilton Álvarez MD IMG MRI ORDERABLES Final R esult * REFRACTOMETER SPECIFIC GRAVITY, URINE (10/08/2004 16:00 EDT) Refractometer SG,Urine 1.022 1.005 - 1.02 [facility] Comment:Refractometer specif ic gravity 10/08/2004 16:0 0 EDT 10/08/2004 16:14 EDT Hilton Álvarez MD URINALYSIS ORDERABLES Jacquie l Result Performing Organization Address [facility] Phone Number [facility] [address] [place] [address] * OSMOLALITY, URINE (10/08/2004 8:30 EDT) Osmolality, Ur 906 MOS/KG [facility] 10/08/2004 8:30 EDT 10/08/2004 8:40 EDT Hilton Álvarez MD URINALYSIS ORDERABLES Jacquie l Result Performing Organization Address [facility] Phone Number [facility] [address] [place] [address] * SODIUM, URINE RANDOM (10/08/2004 8:30 EDT) Pathologist [facility] Sodium, Ur 137.0 mEq/L [facility] 10/08/2004 8:30 EDT 10/08/2004 8:40 EDT us Hilton Álvarez MD URINALYSIS ORDERABLES Jacquie l Result Performing Organization Address [facility] de Phone Number [facility] [address] [place] [address] * OSMOLALITY, URINE (10/08/2004 0:30 EDT) Osmolality, Ur 727 MOS/KG [facility] 10/08/2004 0:30 EDT 10/08/2004 0:32 EDT us Hilton Álvarez MD URINALYSIS ORDERABLES Jacquie l Result Performing Organization Address City/[facility] de Phone Number [facility] [address] [place] [address] * SODIUM, URINE RANDOM (10/08/2004 0:30 EDT) [facility] Sodium, Ur 186.0 mEq/L [facility] 10/08/2004 0:30 EDT 10/08/2004 0:32 EDT Hilton Álvarez MD URINALYSIS ORDERABLES Jacquie l Result Performing Organization Address [facility] de Phone Number [facility] [address] [place] [address] * OSMOLALITY (10/08/2004 0:25 EDT) [facility] Osmolality Cintia 302 MOS/KG SHERI [facility] 10/08/2004 0:25 EDT 10/08/2004 0:32 EDT Hilton Álvarez MD CHEMISTRY & BLOOD GAS ORDE RABLES Final Result Performing Organization Address [facility] de Phone Number [facility] [address] [place] [address] * (ABNORMAL) ELECTROLYTES (10/08/2004 0:25 EDT) [facility] Sodium 145 136 - 145 mEq/L [facility] Potassium 3.2(L) 3.6 - 5.2 mEq/L [facility] Chloride 116(H) 96 - 110 mEq/L [facility] CO2 19(L) 24 - 32 mEq/L [facility] 10/08/2004 0:25 EDT 10/08/2004 0:32 EDT Hilton Álvarez MD CHEMISTRY & BLOOD GAS ORDE RABLES Final Result Performing Organization Address [facility] de Phone Number [facility] [address] [place] [address] * REFRACTOMETER SPECIFIC GRAVITY, URINE (10/07/2004 19:00 EDT) Refractometer SG,Urine 1.021 1.005 - 1.02 [facility] Comment:Refractometer specif ic gravity 10/07/2004 19:0 0 EDT 10/07/2004 19:38 EDT Hilton Álvarez MD URINALYSIS ORDERABLES Jacquie l Result Performing Organization Address [facility] Phone Number [facility] [address] [place] [address] * OSMOLALITY, URINE (10/07/2004 19:00 EDT) Osmolality, Ur 817 MOS/KG HOLLY [facility] 10/07/2004 19:0 0 EDT 10/07/2004 19:38 EDT Hilton Álvarez MD URINALYSIS ORDERABLES Jacquie l Result Performing Organization Address [facility] [place] [address] * SODIUM, URINE RANDOM (10/07/2004 19:00 EDT) Sodium, Ur 272.0 mEq/L [facility] 10/07/2004 19:0 0 EDT 10/07/2004 19:38 EDT Hilton Álvarez MD URINALYSIS ORDERABLES Jacquie l Result Performing Organization Address [facility] Phone Number [facility] [address] [place] [address] * OSMOLALITY (10/07/2004 19:00 EDT) Osmolality Cintia 300 MOS/KG SHERI [facility] 10/07/2004 19:0 0 EDT 10/07/2004 19:37 EDT Hilton Álvarez MD CHEMISTRY & BLOOD GAS HERMES HANNON Final Result Performing Organization Address [facility] Phone Number [facility] [address] [place] [address] * ELECTROLYTES (10/07/2004 19:00 EDT) Sodium 144 136 - 145 mEq/L [facility] Potassium 3.8 3.6 - 5.2 mEq/L [facility] Chloride 109 96 - 110 mEq/L [facility] CO2 25 24 - 32 mEq/L [facility] 10/07/2004 19:0 0 EDT 10/07/2004 19:37 EDT Hilton Álvarez MD CHEMISTRY & BLOOD GAS ORDE [facility] Final Result Performing Organization Address [facility] de Phone Number [facility] [address] [place] [address] * REFRACTOMETER SPECIFIC GRAVITY, URINE (10/07/2004 11:47 EDT) Pathologist [facility] Refractometer SG,Urine 1.019 1.005 - 1.02 [facility] Comment: Refractometer specific gravity Results greater than 1.035 suggest possible interference from glucose or radiographic dye. 10/07/2004 11:4 7 EDT 10/07/2004 11:47 EDT Hilton Álvarez MD URINALYSIS ORDERABLES Jacquie l Result Performing Organization Address [facility] de Phone Number [facility] [address] [place] [address] * OSMOLALITY, URINE (10/07/2004 11:47 EDT) Pathologist [facility] Osmolality, Ur 801 MOS/KG HOLLY [facility] 10/07/2004 11:4 7 EDT 10/07/2004 11:47 EDT Hilton Álvarez MD URINALYSIS ORDERABLES Jacquie l Result Performing Organization Address [facility] de Phone Number [facility] [address] [place] [address] * SODIUM, URINE RANDOM (10/07/2004 11:47 EDT) Sodium, Ur 198.0 mEq/L [facility] 10/07/2004 11:4 7 EDT 10/07/2004 11:47 EDT us Hilton Álvarez MD URINALYSIS ORDERABLES Jacquie l Result Performing Organization Address [facility] de Phone Number [facility] [address] [place] [address] * REFRACTOMETER SPECIFIC GRAVITY, URINE (10/07/2004 4:20 EDT) Refractometer SG,Urine 1.017 1.005 - 1.02 [facility] Comment:Refractometer specif ic gravity 10/07/2004 4:20 EDT 10/07/2004 4:20 EDT us Hilton Álvarez MD URINALYSIS ORDERABLES Jacquie l Result Performing Organization Address [facility] de Phone Number [facility] [address] [place] [address] * OSMOLALITY, URINE (10/07/2004 4:20 EDT) Osmolality, Ur 682 MOS/KG HOLLY [facility] 10/07/2004 4:20 EDT 10/07/2004 4:20 EDT us Hilton Álvarez MD URINALYSIS ORDERABLES Jacquie l Result Performing Organization Address [facility] de Phone Number [facility] [address] [place] [address] * SODIUM, URINE RANDOM (10/07/2004 4:20 EDT) Sodium, Ur 122.0 mEq/L [facility] 10/07/2004 4:20 EDT 10/07/2004 4:20 EDT us Hilton Álvarez MD URINALYSIS ORDERABLES Jacquie l Result Performing Organization Address City/[facility]/ZIP [facility] de Phone Number [facility] [address] [place] [address] * OSMOLALITY (10/07/2004 4:20 EDT) Pathologist [facility] Osmolality Cintia 304 MOS/KG SHERI [facility] 10/07/2004 4:20 EDT 10/07/2004 4:20 EDT Hilton Álvarez MD CHEMISTRY & BLOOD GAS ORDE [facility] Final Result Performing Organization Address [facility] de Phone Number [facility] [address] [place] [address] * (ABNORMAL) ELECTROLYTES (10/07/2004 4:20 EDT) [facility] Sodium 145 136 - 145 mEq/L [facility] Potassium 3.9 3.6 - 5.2 mEq/L [facility] Chloride 111(H) 96 - 110 mEq/L [facility] CO2 25 24 - 32 mEq/L [facility] 10/07/2004 4:20 EDT 10/07/2004 4:20 EDT Hilton Álvarez MD CHEMISTRY & BLOOD GAS ORDE RABREBECA Final Result Performing Organization Address [facility] Phone Number [facility] [address] [place] [address] * REFRACTOMETER SPECIFIC GRAVITY, URINE (10/06/2004 18:33 EST) [facility] Refractometer SG,Urine 1.021 1.005 - 1.02 [facility] Comment: Refractometer specific gravity Results greater than 1.035 suggest possible interference from glucose or radiographic dye. 10/06/2004 18:3 3 EST 10/06/2004 18:33 EST Hilton Álvarez MD URINALYSIS ORDERABLES Jacquie l Result Performing Organization Address [facility] de Phone Number [facility] [address] [place] [address] * OSMOLALITY, URINE (10/06/2004 18:33 EST) Osmolality, Ur 782 MOS/KG HOLLY HER [facility] 10/06/2004 18:3 3 EST 10/06/2004 18:33 EST Hilton Álvarez MD URINALYSIS ORDERABLES Jacquie l Result Performing Organization Address [facility] de Phone Number [facility] [address] [place] [address] * SODIUM, URINE RANDOM (10/06/2004 18:33 EST) Sodium, Ur 138.0 mEq/L [facility] 10/06/2004 18:3 3 EST 10/06/2004 18:33 EST Hilton Álvarez MD URINALYSIS ORDERABLES Jacquie l Result Performing Organization Address [facility] Phone Number [facility] [address] [place] [address] * OSMOLALITY (10/06/2004 18:32 EST) Osmolality Cintia 303 MOS/KG SHERI ALMEIDA [facility] 10/06/2004 18:3 2 EST 10/06/2004 18:32 EST Hilton Álvarez MD CHEMISTRY & BLOOD GAS HERMES HANNON Final Result Performing Organization Address [facility] Phone Number [facility] [address] [place] [address] * (ABNORMAL) ELECTROLYTES (10/06/2004 18:32 EST) Sodium [...] RABLES Final Result [facility] [address] [place] [address] * OSMOLALITY (10/06/2004 14:45 EST) Osmolality Cintia 306 MOS/KG MELONIENoe ELLE [facility] 10/06/2004 14:4 5 EST 10/06/2004 14:51 EST us Hilton Álvarez MD CHEMISTRY & BLOOD GAS [facility] Final Result Performing Organization Address City/[facility] de Phone Number [facility] [address] [place] [address] * (ABNORMAL) ELECTROLYTES (10/06/2004 14:45 EST) Pathologist [facility] Sodium 146(H) 136 - 145 mEq/L [facility] Potassium 3.7 3.6 - 5.2 mEq/L [facility] Chloride 111(H) 96 - 110 mEq/L [facility] CO2 26 24 - 32 mEq/L [facility] 10/06/2004 14:4 5 EST 10/06/2004 14:51 EST Hilton Álvarez MD CHEMISTRY & BLOOD GAS ORDE RABLES Final Result Performing Organization Address City/[facility] de Phone Number [facility] [address] [place] [address] * REFRACTOMETER SPECIFIC GRAVITY, URINE (10/06/2004 14:45 EST) Pathologist [facility] Refractometer SG,Urine 1.021 1.005 - 1.02 [facility] 10/06/2004 14:4 5 EST 10/06/2004 14:52 EST us Hilton Álvarez MD URINALYSIS ORDERABLES Jacquie l Result [facility] [address] [place] [address] * OSMOLALITY, URINE (10/06/2004 14:45 EST) Osmolality, Ur 762 MOS/KG HOLLY [facility] 10/06/2004 14:4 5 EST 10/06/2004 14:52 EST Hilton Álvarez MD URINALYSIS ORDERABLES Jacquie l Result Performing Organization Address [facility] Phone Number [facility] [address] [place] [address] * SODIUM, URINE RANDOM (10/06/2004 14:45 EST) Sodium, Ur 132.0 mEq/L [facility] 10/06/2004 14:4 5 EST 10/06/2004 14:52 EST Hilton Álvarez MD URINALYSIS ORDERABLES Jacquie l Result Performing Organization Address [facility] Phone Number [facility] [address] [place] [address] * OSMOLALITY (10/06/2004 11:00 EST) Osmolality Cintia 299 MOS/KG SHERI ALMEIDA [facility] 10/06/2004 11:0 0 EST 10/06/2004 11:08 EST Hilton Álvarez MD CHEMISTRY & BLOOD GAS HERMES HANNON Final Result Performing Organization Address [facility] de Phone Number [facility] [address] [place] [address] * ELECTROLYTES (10/06/2004 11:00 EST) Sodium 145 136 - 145 mEq/L [facility] Potassium 3.6 3.6 - 5.2 mEq/L [facility] Chloride 110 96 - 110 mEq/L [facility] CO2 25 24 - 32 mEq/L [facility] 10/06/2004 11:0 0 EST 10/06/2004 11:08 EST Hilton Álvarez MD CHEMISTRY & BLOOD GAS HERMES HANNON Final Result Performing Organization Address [facility] de [place] [address] * REFRACTOMETER SPECIFIC GRAVITY, URINE (10/06/2004 11:00 EST) Refractometer SG,Urine 1.019 1.005 - 1.02 [facility] 10/06/2004 11:0 0 EST 10/06/2004 11:10 EST Hilton Álvarez MD URINALYSIS ORDERABLES Jacquie l Result Performing Organization Address [facility] Phone [place] [address] * OSMOLALITY, URINE (10/06/2004 11:00 EST) Osmolality, Ur 735 MOS/KG [facility] 10/06/2004 11:0 0 EST 10/06/2004 11:10 EST Hilton Álvarez MD URINALYSIS ORDERABLES Jacquie l Result Performing Organization Address [facility] de [place] [address] * SODIUM, URINE RANDOM (10/06/2004 11:00 EST) Sodium, Ur 140.0 mEq/L [facility] 10/06/2004 11:0 0 EST 10/06/2004 11:10 EST Hilton Álvarez MD URINALYSIS ORDERABLES Jacquie l Result Performing Organization Address [facility] Co de [place] [address] * OSMOLALITY, URINE (10/06/2004 6:40 EST) Osmolality, Ur 522 MOS/KG [facility] 10/06/2004 6:40 EST 10/06/2004 7:03 EST Hilton Álvarez MD URINALYSIS ORDERABLES Jacquie l Result Performing Organization Address [facility] Phone Number [facility] [address] [place] [address] * SODIUM, URINE RANDOM (10/06/2004 6:40 EST) Sodium, Ur 92.0 mEq/L [facility] 10/06/2004 6:40 EST 10/06/2004 7:03 EST Hilton Álvarez MD URINALYSIS ORDERABLES Jacquie l Result Performing Organization Address [facility] Phone Number [facility] [address] [place] [address] * OSMOLALITY (10/06/2004 6:40 EST) Osmolality Cintia 301 MOS/KG [facility] 10/06/2004 6:40 EST 10/06/2004 7:01 EST Hilton Álvarez MD CHEMISTRY & BLOOD GAS ORDE RABLES Final Result Performing Organization Address [facility] Phone Number [facility] [address] [place] [address] * ELECTROLYTES (10/06/2004 6:40 EST) Sodium 142 136 - 145 mEq/L [facility] Potassium 3.9 3.6 - 5.2 mEq/L [facility] Chloride 108 96 - 110 mEq/L [facility] CO2 25 24 - 32 mEq/L [facility] 10/06/2004 6:40 EST 10/06/2004 7:01 EST Hilton Álvarez MD CHEMISTRY & BLOOD GAS ORDE RABLES Final Result Performing Organization Address [facility] de Phone Number [facility] [address] [place] [address] * OSMOLALITY (10/06/2004 2:44 EST) Osmolality Cintia 295 MOS/KG [facility] 10/06/2004 2:44 EST 10/06/2004 2:44 EST Hilton Álvarez MD CHEMISTRY & BLOOD GAS ORDE RABLES Final Result Performing Organization Address [facility] de Phone Number [facility] [address] [place] [address] * ELECTROLYTES (10/06/2004 2:44 EST) Sodium 143 136 - 145 mEq/L [facility] Potassium 4.0 3.6 - 5.2 mEq/L [facility] Chloride 107 96 - 110 mEq/L [facility] CO2 28 24 - 32 mEq/L [facility] 10/06/2004 2:44 EST 10/06/2004 2:44 EST Hilton Álvarez MD CHEMISTRY & BLOOD GAS ORDE RABLES Final Result Performing Organization Address [facility] Phone Number [facility] [address] [place] [address] * OSMOLALITY, URINE (10/06/2004 2:43 EST) Osmolality, Ur 628 MOS/KG MELONI[facility]EA [facility] 10/06/2004 2:43 EST 10/06/2004 2:43 EST Hilton Álvarez MD URINALYSIS ORDERABLES Jacquie l Result Performing Organization Address [facility] de Phone Number [facility] [address] [place] [address] * SODIUM, URINE RANDOM (10/06/2004 2:43 EST) Sodium, Ur 115.0 mEq/L [facility] 10/06/2004 2:43 EST 10/06/2004 2:43 EST Hilton Álvarez MD URINALYSIS ORDERABLES Jacquie l Result [facility] [address] [place] [address] * OSMOLALITY, URINE (10/05/2004 22:11 EST) Osmolality, Ur 229 MOS/KG MELONIETEA HER [facility] 10/05/2004 22:1 1 EST 10/05/2004 22:11 EST us Hilton Álvarez MD URINALYSIS ORDERABLES Jacquie l Result [facility] [address] [place] [address] * SODIUM, URINE RANDOM (10/05/2004 22:11 EST) Sodium, Ur 28.0 mEq/L [facility] 10/05/2004 22:1 1 EST 10/05/2004 22:11 EST Hilton Álvarez MD URINALYSIS ORDERABLES Jacquie l Result Performing Organization Address [facility] de Phone Number [facility] [address] [place] [address] * OSMOLALITY (10/05/2004 22:10 EST) Osmolality Cintia 297 MOS/KG SHERI ELLE [facility] 10/05/2004 22:1 0 EST 10/05/2004 22:10 EST Hilton Álvarez MD CHEMISTRY & BLOOD GAS ORDE RABLES Final Result [facility] [address] [place] [address] * ELECTROLYTES (10/05/2004 22:10 EST) Sodium 144 [...] HANNON Final Result [facility] [address] [place] [address] * CT HEAD WO CONTRAST (10/05/2004 20:26 [...] 2. No hydrocephalus or intraparenchymal hemorrhage identified. /[facility] Trice Scott MD IMG CT ORDERABLES Final Re sult * OSMOLALITY, URINE (10/05/2004 18:24 EST) Osmolality, Ur 754 MOS/KG [facility] 10/05/2004 18:2 4 EST 10/05/2004 18:29 EST Hilton Álvarez MD URINALYSIS ORDERABLES Jacquie nur Result [facility] [address] [place] [address] * SODIUM, URINE RANDOM (10/05/2004 18:24 EST) Sodium, Ur 216.0 mEq/L [facility] 10/05/2004 18:2 4 EST 10/05/2004 18:29 EST Hilton Álvarez MD URINALYSIS ORDERABLES Jacquie l Result Performing Organization Address [facility] de Phone Number [facility] [address] [place] [address] * OSMOLALITY (10/05/2004 18:06 EST) Osmolality Cintia 294 MOS/KG SHERI ALMEIDA [facility] 10/05/2004 18:0 6 EST 10/05/2004 18:06 EST Hilton Álvarez MD CHEMISTRY & BLOOD [facility] Final Result Performing Organization Address [facility] de Phone Number [facility] [address] [place] [address] * ELECTROLYTES (10/05/2004 18:06 EST) Sodium 141 136 - 145 mEq/L [facility] Potassium 4.4 3.6 - 5.2 mEq/L [facility] Chloride 106 96 - 110 mEq/L [facility] CO2 26 24 - 32 mEq/L [facility] 10/05/2004 18:0 6 EST 10/05/2004 18:06 EST Hilton Álvarez MD CHEMISTRY & BLOOD GAS ORDE RABLES Final Result Performing Organization Address [facility] de Phone Number [facility] [address] [place] [address] * OSMOLALITY, URINE (10/05/2004 15:36 EST) Osmolality, Ur 406 MOS/KG [facility] 10/05/2004 15:3 6 EST 10/05/2004 15:36 EST Hilton Álvarez MD URINALYSIS ORDERABLES Jacquie l Result Performing Organization Address [facility] de Phone Number [facility] [address] [place] [address] * SODIUM, URINE RANDOM (10/05/2004 15:36 EST) Sodium, Ur 109.0 mEq/L [facility] 10/05/2004 15:3 6 EST 10/05/2004 15:36 EST Hilton Álvarez MD URINALYSIS ORDERABLES Jacquie l Result Performing Organization Address [facility] de Phone Number [facility] [address] [place] [address] * OSMOLALITY (10/05/2004 14:19 EST) Pathologist [facility] Osmolality Cintia 296 MOS/KG SH[facility] 10/05/2004 14:1 9 EST 10/05/2004 14:19 EST Hilton Álvarez MD CHEMISTRY & BLOOD GAS ORDE RABLES Final Result Performing Organization Address [facility] de Phone Number [facility] [address] [place] [address] * ELECTROLYTES (10/05/2004 14:19 EST) Pathologist [facility] Sodium 141 136 - 145 mEq/L [facility] Potassium 4.3 3.6 - 5.2 mEq/L [facility] Chloride 108 96 - 110 mEq/L [facility] CO2 26 24 - 32 mEq/L [facility] 10/05/2004 14:1 9 EST 10/05/2004 14:19 EST Hilton Álvarez MD CHEMISTRY & BLOOD GAS ORDE RABLES Final Result Performing Organization Address [facility] de Phone Number [facility] [address] [place] [address] * CREATININE (10/05/2004 14:19 EST) Pathologist [facility] Creatinine 0.7 0.6 - 1.2 mg/dl [facility] 10/05/2004 14:1 9 EST 10/05/2004 14:19 EST Hilton Álvarez MD HISTORICAL LAB FOR SQ LOAD Final Result Performing Organization Address City/[facility]/ZIP Co de Phone Number [facility] [address] [place] [address] * (ABNORMAL) HEMAGRAM (10/05/2004 14:19 EST) WBC [...] S Final Result Performing Organization Address [facility] de Phone Number [facility] [address] [place] [address] * BUN (10/05/2004 14:19 EST) BUN 16 8 - 21 mg/dl [facility] 10/05/2004 14:1 9 EST 10/05/2004 14:19 EST Hilton Álvarez MD CHEMISTRY & BLOOD GAS ORDE RABLES Final Result Performing Organization Address City/[facility]/ZIP Co de Phone Number [facility] [address] [place] [address] * (ABNORMAL) GLUCOSE, GLUCOMETER (10/05/2004 14:16 EST) Glucose, Fingerstick 123(H) 70 - 110 mg/dl [facility] Ovens Supervisor ID [id number] Test Performed by Nursing Services [facility] 10/05/2004 14:1 6 EST 10/06/2004 0:42 EST us Hilton Álvarez MD CHEMISTRY & BLOOD GAS HERMES HANNON Final Result [facility] [address] [place] [address] documented in this encounter Visit Diagnoses Not on filedocumented in this encounter
--- OUTSIDE RECORDS SUMMARY | 2024-07-30 03:07 | XMS_ITS | Encounter Summary ---
Author Organization [facility] Address [facility] [place] [address] Care Team Providers Care Practice Advisor Name Role Phone Jimbo More Primary Care Provider + Encounter Details Date Type Department Care Team (Latest Contact Info) Description 07/20/2024 Travel Social History Tobacco Use Types Packs/Day Years Used Date Smoking Tobacco: Never Smokeless Tobacco: Never Alcohol Use Standard Drinks/Week Comments No 0 (1 standard drink = 0.6 oz pur e alcohol) [facility] Utilities Answer Date Recorded In the [...] any time in the past 12 m [facility], were you homeless or living [...] on filedocumented in this encounter Care Teams Practice Advisor Relationship Specialty Start Date End Date Jimbo [place] [address] PCP - General Internal Medicine 06/18/24 documented as of this encounter
--- OUTSIDE RECORDS SUMMARY | 2024-07-30 03:07 | XMS_ITS | Encounter Summary ---
Author Organization [facility] Address [address] [place] [address] Care Team Providers Care Special Services Director Name Role Phone Yan Demarco MD Primary Care Provider [phone] Corin Skinner MD Primary Care Provider Akil Serrano MD Primary Care Provider [phone] Encounter Details Date Type Department Care Team (Late st Contact Info) Description 09/21/2004 Before PRISM Converted Visit (Maple) [facility] - Maple conversion [address] [place] [address] Ade Malloy MD [address] [place] [phone] Social History Tobacco Use Types Packs/Day Years Used Date Smoking Tobacco: Never Assessed Sex and Gender Information Value Date Recorded Sex Assigned at Not on file Legal Sex Male 18:35 EST Gender Identity Not on file Sexual Orientation Not on file documented as of this encounter Progress Notes * Ricki, Conv Registrar [employer] - 02/13/2011 1150 EDT INITIAL EVALUATION September 20, 2004 Kris Drew MD [address] [place] [address] [place] [address] Drew, I had the pleasure [...] long discussion with the mother and the clinical social worker about the risks of surgery including , paralysis,stroke, blindness, cerebral spinal fluid leak, pituitary and hypothalamic damage, bleeding requiring blood transfusion, need for mcc hormone replacement, seizures. They understand this and would like to proceed;knowing that the biggest threat here is that if it is left untreated it certainly will threaten hisgood eye. I will set him up for surgery on the of this month. I would like him to see our pediatric swimming instructor Dr. Edwards, and I have ordered a [...] MD on 09/24/2004 09:42:19. ADE MALLOY MD Rn Triage [facility] Division of Neurological Surgery - ADE MALLOY MD - an Voice ID: [id number] Document ID: [id number] CC: KRIS MCKENNA MD documented in this encounter Plan of Treatment Upcoming Encounters Date Type Department Care Team (Late st Contact Info) Description 10/01/2024 13:40 EDT Office Visit [facility] Endocrinology - [facility] [address] [place] [address] Wilder Zaidi, 62 [facility] [address] [place] [address] documented as of this encounter Visit Diagnoses Not on filedocumented in this encounter Care Teams Special Services Director Relationship Specialty Start Date End Date Yan Demarco MD [address] [place] [phone] PCP - General 08/22/09 02/20/10 Corin Skinner MD [address] [place] [phone] PCP - General 10/24/08 08/21/09 Akil Serrano MD [address] [place] [address],[facility] [address] [place] [address] PCP - General 02/21/10 04/16/11 documented as of this encounter
--- OUTSIDE RECORDS SUMMARY | 2024-07-30 03:07 | XMS_ITS | Encounter Summary ---
Author Organization [facility] Address [address] [place] [address] Care Team Providers Care Warm In Worker Name Role Phone Yan Demarco MD Primary Care Provider [phone] Corin Skinner MD Primary Care Provider Akil Serrano MD Primary Care Provider [phone] Encounter Details Date Type Department Care Team (Late st Contact Info) Description 10/08/2004 Before PRISM Converted Visit (Maple) [facility] - Maple conversion [address] [place] [address] Hilton Malloy MD [address] [place] [phone] Social History Tobacco Use Types Packs/Day Years Used Date Smoking Tobacco: Never Assessed Sex and Gender Information Value Date Recorded Sex Assigned at Not on file Legal Sex Male 18:35 EST Gender Identity Not on file Sexual Orientation Not on file documented as of this encounter Procedure Notes * Ricki, Conv Or Assistant - 02/13/2011 1243 EDT DATE: 10/05/2004 SURGEON: HILTON MALLOY MD SPINNER OPERATOR: JOSE ARMANDO ALEJO MD; ROSEY GUALLPA MD; [...] and his head was placed in the [place] three-point headholder fixator device. At that point, [...] cyst. This was opened sharply with a [place] blade scalpel, and immediately, a large amount [...] 10/08/2004 07:58:16 - jenn Voice ID - [id number] Document ID - [id number] cc: JOSE ARMANDO GUALLPA MD RESIDENT CONSTANTINO BERMUDEZ MD RESIDENT TOO DIAZ MD, REFERRING PHYSICIAN HILTON MALLOY MD, ATTENDING PHYSICIAN This document has been electronically signed by HILTON MALLOY MD on 10/08/2004 10:50:11. documented in this encounter Plan of Treatment Upcoming Encounters Date Type Department Care Team (Late st Contact Info) Description 10/01/2024 13:40 EDT Office Visit [facility] Endocrinology - [facility] [address] [place], [place] [phone] Wilder Zaidi, DO [address] [facility] [address] [place] [address] documented as of this encounter Visit Diagnoses Not on filedocumented in this encounter Care Teams Warm In Worker Relationship Specialty Start Date End Date Yan Demarco MD [address] [place] [phone] PCP - General 08/22/09 02/20/10 Corin Skinner MD [address] [address] PCP - General 10/24/08 08/21/09 Akil Serrano MD 74 [facility],[address] [address] PCP - General 02/21/10 04/16/11 documented as of this encounter
--- OUTSIDE RECORDS SUMMARY | 2024-07-30 03:07 | XMS_ITS | Encounter Summary ---
Author Organization [facility] Address [address] [place] [address] Care Team Providers Care Plant Equipment Engineer Name Role Phone Yan Demarco MD Primary Care Provider Corin Skinner MD Primary Care Provider [phone] Akil Serrano MD Primary Care Provider [phone] Encounter Details Date Type Department Care Team (Late st Contact Info) Description 10/05/2004 Results Only [facility] Pediatric Neurology - Main [place] [address] [place], [place] [address] Ade Malloy MD [address] [place] [phone] Social History Tobacco Use Types Packs/Day Years [...] Office Visit [facility] Endocrinology - [facility] [address] [place] [address] Wilder Zaidi, DO [address] [facility] [address] [place] [address] documented as of this encounter [...] MIGUEL ANGEL MASON ? Accession #: ? [id number] : ? 1990 (Age: 14) ??M ?Collect [...] cleft cyst. Clinical correlation is recommended. ??(Dr. Jimenez)/[facility] Document reviewed and electronically signed by: ? GABRIEL JACOBS MD [facility] Report Date: ??10/09/2004 12:19 By the signature [...] PATHOLOGY ORDERABLES Final Result Performing Organization Address City/State/[facility] Co de Phone Number [facility] [address] [place] [address] documented in this encounter Visit Diagnoses Not on filedocumented in this encounter Care Teams Plant Equipment Engineer Relationship Specialty Start Date End Date Yan Demarco MD [address] [place] [address] PCP - General 08/22/09 02/20/10 Corin Skinner MD [address] [place] [phone] PCP - General 10/24/08 08/21/09 Akil Serrano MD [address] [place] [address] PCP - General 02/21/10 04/16/11 documented as of this encounter
--- OUTSIDE RECORDS SUMMARY | 2024-07-30 03:07 | XMS_ITS | Encounter Summary ---
Author Organization [facility] Address [address] [place] [address] Care Team Providers Care Diagnostic Imaging Manager Name Role Phone Yan Demarco MD Primary Care Provider Corin Skinner MD Primary Care Provider Akil Serrano MD Primary Care Provider [phone] Encounter Details Date Type Department Care Team (Late st Contact Info) Description 10/15/2004 Before PRISM Converted Visit (Maple) [facility] - Maple conversion [address] [place] [address] Jose Armando Alejo MD [address] [place] [address] Social History Tobacco Use Types Packs/Day Years [...] Visit [facility] Endocrinology - [facility] [address] [place] [address] Wilder Zaidi, 62 [facility] [address] [place] [address] documented as of this encounter Visit Diagnoses Not on filedocumented in this encounter Care Teams Diagnostic Imaging Manager Relationship Specialty Start Date End Date Yan Demarco MD [address] [place] [address] PCP - General 08/22/09 02/20/10 Corin Skinner MD [address] [place] [phone] PCP - General 10/24/08 08/21/09 Akil Serrano MD [address] [address] PCP - General 02/21/10 04/16/11 documented as of this encounter
--- OUTSIDE RECORDS SUMMARY | 2024-07-30 03:07 | XMS_ITS | Encounter Summary ---
Author Organization [facility] Address [address] [place] [address] Care Team Providers Care Food Court Team Member Name Role Phone Yan Demarco MD Primary Care Provider [phone] Corin Skinner MD Primary Care Provider [phone] Akil Serrano MD Primary Care Provider [phone] Encounter Details Date Type Department Care Team (Late st Contact Info) Description 11/13/2004 Before PRISM Converted Visit (Maple) [facility] - Maple conversion [address] [place] [address] Kylie Larson MD [address] [place] [phone] Social History Tobacco Use Types Packs/Day Years [...] scratch his face spontaneously. He did not offal icer poultry specifically to command but seemed to automatically offal icer poultry my hand when I gripped his. He [...] response when trying to open his mouth. senior web services developer and social work continued to work on [...] 11/13/2004 17:06:53 - chelle Voice ID - [id number] Document ID - [id number] cc: KYLIE DIAZ MD, REFERRING PHYSICIAN This document has been electronically signed by KYLIE LARSON MD on 11/14/2004 13:52:29. [email or web address] documented in this encounter Plan of Treatment Upcoming Encounters Date Type Department Care Team (Late st Contact Info) Description 10/01/2024 13:40 EDT Office Visit [facility] Endocrinology - [facility] [address] [place] [address] Wilder Zaidi, DO 62 [facility] [address] [place] [address] documented as of this encounter Visit Diagnoses Not on filedocumented in this encounter Care Teams Food Court Team Member Relationship Specialty Start Date End Date Yan Demarco MD [address] [place] [address] PCP - General 08/22/09 02/20/10 Corin Skinner MD [address] [phone] PCP - General 10/24/08 08/21/09 Akil Serrano MD 74 [facility] [address] [place] [address] PCP - General 02/21/10 04/16/11 documented as of this encounter
--- OUTSIDE RECORDS SUMMARY | 2024-07-30 03:07 | XMS_ITS | Encounter Summary ---
Author Organization [facility] Address [address] [place] [address] Care Team Providers Care Mailmaster Name Role Phone Unavailable Primary Care Provider Unavailabl e Encounter Details Date Type Department Care Team (Late st Contact Info) Description 09/17/2004 11:07 EST - 09/17/2004 11:59 EST Hospital Encounter [facility] - Maple conversion [address] [place] [address] Jamie Mckenna MD [address] [facility] [address] [place] [phone] Discharge Disposition: Home or Self Care Social [...] Description 10/01/2024 13:40 EDT Office Visit [facility] Endocrinology - [facility] [address] [place] [address] Wilder Zaidi DO 62 [facility] [address] [place] [phone] documented as of this encounter Procedures Procedure [...] macroadenoma, although these are much less likely. /[facility] Jamie Mckenna MD IMG [...]
--- OUTSIDE RECORDS SUMMARY | 2024-07-30 03:07 | XMS_ITS | Encounter Summary ---
[place] [address] Care Team Providers Care Health Tech Name Role Phone Jimbo More Primary Care Provider + Reason for Referral * Diagnostic Test (Routine) - Authorized Specialty Diagnoses / Procedures Referred By Duyen bui Referred To Contact Radiology Diagnoses Schwannoma Procedures MRI Brain wwo Contrast (Generic) Eron Barriga MD [facility] [place] [address] [place] [address] [place] [address] Referral ID Status Reason Start Date Expiration Date Visits Requested Visits Authorized [id number] Authorized Specialty Service Requested 07/20/2024 01/17/2026 1 1 Encounter Details Date Type Department Care Team (Late st Contact Info) Description 07/20/2024 1:30 PM EST [place] [address] Eron Barriga MD [facility] [place] [address] Schwannoma Social History Tobacco Use Types Packs/Day Years Used Date Smoking Tobacco: Never Smokeless Tobacco: Never Alcohol Use Standard Drinks/Week Comments No 0 (1 standard drink = 0.6 oz pur e alcohol) [facility] Utilities Answer Date Recorded In the [...] any time in the past 12 m [facility], were you homeless or living in a long term (including now)? 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 Has blindness, completely hypopituitarism, epilepsy. Recently admitted [facility] for hyponatremia. Found to have lesion in right middle fossa c/w schwannoma. Was reportedly seen on September CT (not available) but is not evident on 2018 CT. Mass measures max 35 mm and extends from medial middle fossa/cav sinus thru Meckel's cave slightly.ALso notable for aneurysm clip deep to this mass near KITCHEN CLEANER. Exam. Pt minimally interactive. No obvious EOM [...] site documented in this encounter Care Teams Health Tech Relationship Specialty Start Date End Date Jimbo More [place] [place] [address] PCP - General Internal Medicine 06/18/24 documented as of this encounter
--- OUTSIDE RECORDS SUMMARY | 2024-07-30 03:07 | XMS_ITS | Encounter Summary ---
Author Organization [facility] Address [address] [place] [address] Care Team Providers Care Rfid Specialist Name Role Phone Yan Demarco MD Primary Care Provider Corin Skinner MD Primary Care Provider Akil Serrano MD Primary Care Provider [phone] Encounter Details Date Type Department Care Team (Late st Contact Info) Description 11/15/2004 Before PRISM Converted Visit (Maple) [facility] - Maple conversion [address] [place] [address] Kylie Larson MD [address] [place] [id number] Social History Tobacco Use Types Packs/Day Years [...] last couple of days. Nursing over at [facility] will review his nursing care needs to see if they can provide the appropriate level of care for him. We will continue to monitor him over the next couple of days to assess for appropriate transition to the [facility]hab [facility] on Friday. d - 11/15/2004 16:16:25 - KYLIE LARSON MD t - 11/15/2004 16:50:13 - Voice ID - [id number] Document ID - [id number] cc: ANCELMO DIAZ MD, REFERRING PHYSICIAN This document has been electronically signed by KYLIE LARSON MD on 11/16/2004 15:48:37. l3 documented in this encounter Plan of Treatment Upcoming Encounters Date Type Department Care Team (Late st Contact Info) Description 10/01/2024 13:40 EDT Office Visit [facility] Endocrinology - [facility] [address] [place] [place] [address] Wilder Zaidi, DO [address] [facility] [address] [place] [address] documented as of this encounter Visit Diagnoses Not on filedocumented in this encounter Care Teams Rfid Specialist Relationship Specialty Start Date End Date Yan Demarco MD [address] [place] [address] PCP - General 08/22/09 02/20/10 Corin Skinner MD [address] [place] [phone] PCP - General 10/24/08 08/21/09 Akil Serrano MD [address] [place] [address] PCP - General 02/21/10 04/16/11 documented as of this encounter
--- OUTSIDE RECORDS SUMMARY | 2024-07-30 03:07 | XMS_ITS | Encounter Summary ---
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 Jimbo More PA [address] [place] [address] [facility] Dermatology [address] [place] [address] Referral ID Status Reason Start Date Expiration Date Visits Requested Visits Authorized [id number] Authorized Consult, Test & Treat PCP Updated and/or Approved 07/22/2024 07/22/2025 6 6 Encounter Details Date Type Department Care Team (Late st Contact Info) Description 07/28/2024 Transcribe Orders eDH Incoming Referrals [phone] Jimbo More PA [address] [place] [address] Other injury of unspecified body region, initial encounter Social History Tobacco Use Types Packs/Day Years Used Date Smoking Tobacco: Never Smokeless Tobacco: Never Alcohol Use Standard Drinks/Week Comments No 0 (1 standard drink = 0.6 oz pur e alcohol) [facility] Utilities Answer Date Recorded In [...] time in the past 12 m [facility], were you homeless or living in a [...] Scheduled Referrals Name Type Priority Associated Diagnoses Orde r Schedule Referral to Dermatology Outpatient Referral Routine Other injury of unspecified body region, initial encounter Ordered: 07/28/2024 documented as of this encounter Visit Diagnoses Diagnosis Other injury of unspecified body region, initial encounter documented in this encounter Care Teams Manager Mountain Relationship Specialty Start Date End Date Jimbo More PA [facility] [place] [address] PCP - General Internal Medicine 06/18/24 documented as of this encounter
--- OUTSIDE RECORDS SUMMARY | 2024-07-30 03:07 | XMS_ITS | Encounter Summary ---
Author Organization [facility] Address [address] [place] [address] Care Team Providers Care Cnc Manufacturing Engineer Name Role Phone Yan Demarco MD Primary Care Provider [phone] Corin Skinner MD Primary Care Provider Akil Serrano MD Primary Care Provider [phone] Encounter Details Date Type Department Care Team (Late st Contact Info) Description 10/15/2004 Before PRISM Converted Visit (Maple) [facility] - Maple conversion [address] [place] [address] Hilton Malloy MD [address] [place] [phone] Social History Tobacco Use Types Packs/Day Years Used Date Smoking Tobacco: Never Assessed Sex and Gender Information Value Date Recorded Sex Assigned at Not on file Legal Sex Male 18:35 EST Gender Identity Not on file Sexual Orientation Not on file documented as of this encounter Procedure Notes * Ricki, Conv Handkerchief Presser - 02/13/2011 1256 EDT DATE: 10/12/2004 SURGEON: HILTON MALLOY MD SPINNING DOFFER: REYNA OLEA MD, ANCELMO FRIEDMAN MD, HOMAR RAIENY MD PREOPERATIVE DIAGNOSIS: Craniopharyngioma POSTOPERATIVE DIAGNOSIS: Craniopharyngioma [...] he finished, we placedthe patient in the [employer] three-point headrig sawyer fixation and then registered him with the [...] suture. Then thedura is stripped with a [place] #3 and an air drill is used [...] used. The arachnoid is opened with a [place] blade and the sylvian fissure is split. [...] skin. The patient is removed from the [employer] headholder. The pupils appear 3 mm and [...] 10/15/2004 10:37:52 - chelle Voice ID - [id number] Document ID - [id number] cc: HOMAR DIAZ MD, REFERRING PHYSICIAN HILTON MALLOY MD, ATTENDING PHYSICIAN This document has been electronically signed by HILTON MALLOY MD on 10/16/2004 16:06:32. documented in this encounter Plan of Treatment Upcoming Encounters Date Type Department Care Team (Late st Contact Info) Description 10/01/2024 13:40 EDT Office Visit [facility] Endocrinology - [address] [address] Shonjalyn Wilder Erik, DO [address] [facility] [address] [place] [address] documented as of this encounter Visit Diagnoses Not on filedocumented in this encounter Care Teams Cnc Manufacturing Engineer Relationship Specialty Start Date End Date Yan Demarco MD [address] [place] [address] PCP - General 08/22/09 02/20/10 Corin Skinner MD [address] [place] [phone] PCP - General 10/24/08 08/21/09 Akil Serrano MD [address] [facility] [address] [address] [place] [address] PCP - General 02/21/10 04/16/11 documented as of this encounter
--- OUTSIDE RECORDS SUMMARY | 2024-07-30 03:07 | XMS_ITS | Clinical Summary ---
Author Organization [facility] Address [facility] [place] [address] Care Team Providers Care Conference Center Coordinator Name Role Phone Jimbo More Primary Care [...] taking.Reported on 07/20/2024 Diaper,Brief, Adult,Disposable Misc Daily 24/ as needed [...] Encounters Date Type Department Care Team Description 07/28/2024 Transcribe Orders eDH Incoming Referrals [phone] Jimbo More PA Other injury of unspecified body region, initial encounter 07/20/2024 1:30 PM EST Office [place] [address] Eron Barriga MD Schwannoma 07/20/2024 Travel 06/16/2024 Telephone [place] [address] Lauren Ruby MD Appointment 2024 3:10 PM EST - 2024 4:30 [place] [address] RESOURCE, ANESTHESIA-[place] MRI WITH ANESTHESIA (WRVU *) 2024 2:56 [place] [address] Akin Mcneill MD 06/14/2024 9:50 AM EST Ancillary Procedure Radiology Library at [facility] KAREY Alarcon [phone] 06/14/2024 12:57 AM EST - 06/21/2024 3:06 PM EST Hospital Encounter Neuro Special Care Unit Level 3 Wing C [place] [facility] [place] [address] Mariola Alfred MD Saunders, MD Lesli Deleon Elias E, MD Raicek, Jacqueline E, DO Amell, Fredrik B, MD Sleep disorder; Hyponatremia; Agitation Discharge Disposition: Mcfp Facility 06/13/2024 Ancillary Procedure Radiology Library at [facility] [place] [address] Ren Vaz MD from Last 3 Months Social History Tobacco Use Types Packs/Day Years Used Date Smoking Tobacco: Never Smokeless Tobacco: Never Alcohol Use Standard Drinks/Week Comments No 0 (1 standard drink = 0.6 oz pur e alcohol) [facility] Utilities Answer Date Recorded In the [...] any time in the past 12 m [facility], were you homeless or living in a long-term (including now)? No 2024 [facility] Inpatient Questions Answer Date Recorded Prevent [...] series) 03/07/2024 Medical Devices Implanted Type Area Legal Cashier Device Identifier Shelf Expiration Date Model / Serial / Lot Screw,Baljinder,Stap,3 .5x80mm ([id number]) ([employer]ore[employer]) - [id number] Implanted:Qty: 1 on 09/04/2017 by Amy Lance MD at [facility] IMPLANTS Left: Pelvis DO NOT USE [employer] - [id number] / / Screw,Baljinder,Stap,3 .5x34mm ([id number]) ([employer]) - [id number] Implanted:Qty: 1 on 09/04/2017 by Amy Lance MD at [facility] IMPLANTS Left: Pelvis DO NOT USE [employer] - [id number] / / Screw,Baljinder,Stap,3 .5x36mm ([id number]) ([employer]) - [id number] Implanted:Qty: 1 on 09/04/2017 by Amy Lance MD at [facility] IMPLANTS Left: Pelvis DO NOT USE [employer] - [id number] / / Screw,Baljinder,Stap,3 .5x50mm ([id number]) - [id number] Implanted:Qty: 2 on 09/04/2017 by Amy Lance MD at [facility] IMPLANTS Left: Pelvis DO NOT USE [employer] - [id number] / / Screw,Baljinder,Stap,3 .5x55mm ([id number]) - [id number] Implanted:Qty: 3 on 09/04/2017 by Amy Lance MD at [facility] IMPLANTS Left: Pelvis DO NOT USE [employer] - [id number] / / Screw,Baljinder,Stap,3 .5x60mm ([id number]) - [id number] Implanted:Qty: 1 on 09/04/2017 by Amy Lance MD at [facility] IMPLANTS Left: Pelvis DO NOT USE [employer] - [id number] / / Screw,Baljinder,Stap,3 .5x65mm ([id number]) - [id number] Implanted:Qty: 2 on 09/04/2017 by Amy Lance MD at [facility] IMPLANTS Left: Pelvis DO NOT USE [employer] - [id number] / / Suprapectineal Plate (Qls Left) Implanted:Qty: 1 on 09/04/2017 by Amy Lance MD at [facility] Left: Pelvis 07/06/2022 [id number] / / [id number] 3.5mm Cortical Screw Self Tap 45mm Implanted:Qty: 1 on 09/04/2017 by Amy Lance MD at [facility] Left: Pelvis [id number] / / Explanted Type Area Legal Cashier Device Identifier Shelf Expiration Date Model / Serial / Lot K-Wire [id number] Explanted:Qty: 1 on 09/04/2017 by Amy Lance MD at [facility] Left: Pelvis [id number] / / [id number] Procedures Procedure Name Priority Date/Time Associated Diagnosis [...] 2024 4:20 PM EST Unlisted Mri Procedure ([id number]) 2024 2:56 PM EST Please evaluate lesion [...] 06/14/2024 9:46 AM EST URINALYSIS BEAKER MICROSCOPIC ([facility]) SHEEBA 06/14/2024 8:06 AM EST URINALYSIS MICROSCOPIC [...] - 9.50 x10(3)/mc L 06/21/2024 1:09 AM [facility] Red Blood Cell 5.33 4.58 - 5.54 x10(6)/mc L 06/21/2024 1:09 AM [facility] Hemoglobin 12.9(L) 13.7 - 16.5 g/dL 06/21/2024 1:09 AM [facility] Hematocrit 39.9(L) 40.5 - 48.5 % 06/21/2024 1:09 AM [facility] Mean Cell Volume 74.9(L) 82.9 - 93.1 fL 06/21/2024 1:09 AM [facility] Mean Cell Hemoglobin 24.2(L) 27.5 - 32.1 pg 06/21/2024 1:09 AM [facility] Mean Cell Hemoglobin Concentration 32.3 32.0 - 35.7 g/dL 06/21/2024 1:09 AM [facility] Platelet 268 145 - 357 x10(3)/mc L 06/21/2024 1:09 AM [facility] Mean Platelet Volume 9.1 7.6 - 12.9 fL 06/21/2024 1:09 AM [facility] RDW Standard Deviation 39.8 36.0 - 45.0 fL 06/21/2024 1:09 AM [facility] RDW coefficient of variation 15.0(H) 11.4 - 13.8 % 06/21/2024 1:09 AM [facility] NRBC% auto 0.0 % 06/21/2024 1:09 AM [facility] NRBC Absolute <0.01 <0.01 x10(3)/mc L 06/21/2024 1:09 AM [facility] Neutrophil % 63.6 % 06/21/2024 1:09 AM [facility] Neutrophil Absolute (ANC) - Automated 4.78 1.70 - 6.10 x10(3)/mc L 06/21/2024 1:09 AM [facility] Lymph % 23.7 % 06/21/2024 1:09 AM [facility] Lymph Absolute 1.78 0.90 - 3.20 x10(3)/mc L 06/21/2024 1:09 AM [facility] Monocyte % 9.8 % 06/21/2024 1:09 AM [facility] Monocyte Absolute 0.74 0.30 - 0.90 x10(3)/mc L 06/21/2024 1:09 AM [facility] Eos % 2.0 % 06/21/2024 1:09 AM [facility] Eos Absolute 0.15 0.00 - 0.40 x10(3)/mc L 06/21/2024 1:09 AM [facility] Basophil % 0.4 % 06/21/2024 1:09 AM [facility] Baso Absolute <0.04 0.00 - 0.10 x10(3)/mc L 06/21/2024 1:09 AM [facility] Immature Gran % 0.5 % 1:09 AM [facility] Immature Gran Absolute 0.04 0.00 - 0.04 x10(3)/mc L 06/21/2024 1:09 AM [facility] Blood VENOUS BLOOD SPECIMEN / Unknown Venipuncture / Unknown 06/21/2024 12:50 AM EST 06/21/2024 12:56 AM EST Martinez Reynolds MD HEMATOLOGY ORDERABLE S [facility] [place] [address] * Phosphorus (06/21/2024 12:50 AM EST) Only the most recent of9 resultswithin the time period is included. Pathologist [facility] Phosphorus 3.2 2.5 - 4.5 mg/dL 06/21/2024 1:30 AM EST [facility] Blood VENOUS BLOOD SPECIMEN / Unknown Venipuncture / Unknown 06/21/2024 12:50 AM EST 06/21/2024 12:56 AM EST Martinez Reynolds MD CHEMISTRY ORDERABLES Performing Organization Address [facility] de Phone Number [facility] [place] [address] * Magnesium (06/21/2024 12:50 AM EST) Only the most recent of9 resultswithin the time period is included. [facility] Magnesium 0.81 0.69 - 1.07 mMol/L 06/21/2024 1:30 AM [facility] Blood VENOUS BLOOD SPECIMEN / Unknown Venipuncture / Unknown 06/21/2024 12:50 AM EST 06/21/2024 12:56 AM EST Martinez Reynolds MD CHEMISTRY ORDERABLES Performing Organization Address [facility] Phone Number [facility] [place] [address] * (ABNORMAL) Hepatic Function Panel (06/21/2024 12:50 AM EST) Only the most recent of5 resultswithin the time period is included. Pathologist [facility] Albumin 4.0 3.2 - 5.2 g/dL 06/21/2024 1:30 AM EST [facility] Aspartate Aminotransferase 47(H) <=39 unit/L 06/21/2024 1:30 AM [facility] Alanine Aminotransferase 64(H) 0 - 55 unit/L 06/21/2024 1:30 AM [facility] Alkaline Phosphatase 141(H) 40 - 130 unit/L 06/21/2024 1:30 AM [facility] Bilirubin, Total <0.2 <=1.3 mg/dL 06/21/2024 1:30 AM [facility] Bilirubin, Direct <0.2 0.0 - 0.3 mg/dL 06/21/2024 1:30 AM [facility] Protein, Total 7.1 6.1 - 8.0 g/dL 06/21/2024 1:30 AM [facility] Blood VENOUS BLOOD SPECIMEN / Unknown Venipuncture / Unknown 06/21/2024 12:50 AM EST 06/21/2024 12:56 AM EST aMrtinez Reynolds MD CHEMISTRY ORDERABLES [facility] [place] [address] * (ABNORMAL) Basic Metabolic Panel (06/21/2024 12:50 AM EST) Only the most recent of9 resultswithin the time period is included. Glucose 126 65 - 199 mg/dL 06/21/2024 1:44 AM [facility] Comment:Glucose Concentratio n >=200 mg/dL plus symptoms is consistent with Diabetes Mellitus. Blood Urea Nitrogen 12 10 - 20 mg/dL 06/21/2024 1:44 AM [facility] Creatinine 0.82 0.80 - 1.50 mg/dL 06/21/2024 1:44 AM [facility] Sodium 141 135 - 145 mMol/L 06/21/2024 1:44 AM [facility] Potassium 4.3 3.5 - 5.0 mMol/L 06/21/2024 1:44 AM [facility] Chloride 111(H) 98 - 107 mMol/L 06/21/2024 1:44 AM [facility] Carbon Dioxide 18(L) 22 - 31 mMol/L 06/21/2024 1:44 AM [facility] Anion Gap 12 5 - 15 mMol/L 06/21/2024 1:44 AM [facility] Calcium 9.0 8.5 - 10.5 mg/dL 06/21/2024 1:44 AM EST [facility] Est Glomerular Filtration Rate - Male 118 mL/min/1. 73 m?? 06/21/2024 1:44 AM EST [facility] Comment: This patient's estimated GFR [...] AM EST Martinez Reynolds MD CHEMISTRY ORDERABLES [facility] [place] [id number] * Scan Doc: Telemetry Strips (06/20/2024 9:23 AM EST) Only the most recent of4 resultswithin the time period is included. Narrative 06/20/2024 9:23 AM EST Ordered by an unspecified provider. Scanning Provider MEDIA MGR SCAN EXT O RDR/RSLT * (ABNORMAL) Urinalysis with reflex Culture (06/19/2024 3:22 AM EST) Glucose, Urine Dipstick Negative Negative 06/19/2024 3:37 AM EST [facility] Protein, Urine Dipstick Negative Negative 06/19/2024 3:37 AM EST [facility] Bilirubin, Urine Dipstick Negative Negative 06/19/2024 3:37 AM EST [facility] Comment:Clinical correlation required for positive Urine Bilirubin results as false positive may occur with some drugs and drug related products. If a false positive is suspected a serum total bilirubin should be considered if clinically indicated. Urobilinogen, Urine Dipstick Normal Normal, 0.2 mg/dL, 1.0 mg/dL 06/19/2024 3:37 AM [facility] pH, Urine (dipstick) 6.5 5.0 - 8.0 06/19/2024 3:37 AM [facility] Blood, Urine Dipstick Negative Negative 06/19/2024 3:37 AM [facility] Ketone, Urine Dipstick Negative Negative 06/19/2024 3:37 AM [facility] Nitrite, Urine Dipstick Negative Negative 06/19/2024 3:37 AM [facility] Leukocytes, Urine Dipstick Negative Negative 06/19/2024 3:37 AM [facility] Specific [place] Urine Automated 1.021 1.005 - 1.030 06/19/2024 3:37 AM [facility] Appearance, Urine Dipstick Cloudy(A) Clear 06/19/2024 3:37 AM [facility] Color, Urine Dipstick Yellow Yellow, Dark Yellow 06/19/2024 3:37 AM [facility] CULTURE ADDED? 06/19/2024 3:37 AM [facility] Urine URINE SPECIMEN OBTAINED VIA STRAIGHT CATHETER / Unknown Non Blood Collection / Unknown 06/19/2024 3:22 AM EST 06/19/2024 3:31 AM EST Pamela Johnson [place] [address] * XR Chest One View (06/18/2024 7:55 PM EST) Only the most recent of2 resultswithin the time period is included. WORKSTATION ID [id number] RAD Anatomical Region Laterality Modality Chest N/A [...] who have questions please contact the health healthcare translator that requested your imaging first. ? Electronically signed by: Tobias Sotomayor MD, [facility] ([phone]), at 06/18/2024 8:09 PM Narrative 06/18/2024 8:09 [...] patients who have questions please contactthe health healthcare translator that requested your imaging first. Pamela Johnson DO IMG DX ORDERABLES * Blood culture (06/18/2024 7:00 PM EST) Only the most recent of2 resultswithin the time period is included. Blood Culture No growth at 120 hours 06/23/2024 8:00 PM EST [facility] Blood VENOUS BLOOD SPECIMEN / Unknown Venipuncture / Unknown 06/18/2024 7:00 PM EST 06/18/2024 7:05 PM EST Pamela Johnson DO MICROBIOLOGY - BL OOD ORDERABLES Performing Organization Address City/[facility]/ZIP Co de Phone Number [facility] [place] [address] * POC, GLUCOSE (06/18/2024 6:55 PM EST) Only the most recent of2 resultswithin the time period is included. Glucometer, POC 100 65 - 199 mg/dL 06/18/2024 6:56 PM EST [facility] Comment:Supplemental ranges: <140 mg/dL before meals <180 mg/dL all other times of the day. Blood CAPILLARY BLOOD / Unknown 06/18/2024 6:55 PM EST 06/18/2024 6:56 PM EST Pamela Johnson DO POINT OF CARE TABATHA T ORDERABLES Performing Organization Address City/[facility]/ZIP Co de Phone Number [facility] [place] [address] * EKG 12 Lead (06/18/2024 1:41 PM EST) Only the most recent of3 resultswithin the time period is included. Ventricular rate 47 BPM MUSE SYSTEM Atrial Rate 47 BPM MUSE SYSTEM P-R Interval 186 ms MUSE SYSTEM QRS Duration 114 ms MUSE SYSTEM Q-T Interval 558 ms MUSE SYSTEM QTC Calculated (Bezet) 493 ms MUSE SYSTEM Calculated P [place] 11 degrees MUSE SYSTEM Calculated R [place] 45 degrees MUSE SYSTEM Calculated T [place] 45 degrees MUSE SYSTEM INTERPRETATION Sinus bradycardia [...] Reynolds MD ECG ORDERABLES Performing Organization Address City/[facility]/ZIP Co de Phone Number MUSE SYSTEM * Sodium (06/18/2024 12:22 PM EST) Only the most recent of17 resultswithin the time period is included. Sodium 135 135 - 145 mMol/L 06/18/2024 1:01 PM EST [facility] Blood VENOUS BLOOD SPECIMEN / Unknown Venipuncture / Unknown 06/18/2024 12:22 PM EST 06/18/2024 12:35 PM EST Pamela Johnson DO CHEMISTRY ORDERAB LES [facility] [place] [address] * CT Head wo Contrast (Generic) (06/18/2024 11:18 AM EST) WORKSTATION ID [id number] RAD Anatomical Region Laterality Modality Head Computed [...] who have questions please contact the health healthcare translator that requested your imaging first. ? Electronically signed by: Jimbo Casillas MD, [facility] ([phone]), at 06/18/2024 11:37 AM Narrative 06/18/2024 11:37 [...] patients who have questions please contactthe health healthcare translator that requested your imaging first. Electronically signed by: Jimbo Casillas MD, [facility]([phone]), at 06/18/2024 11:37 AM Pamela Johnson DO IMG CT ORDERABLES * MRI Brain wwo Contrast (Generic) (2024 4:20 PM EST) WORKSTATION ID [id number] RAD Anatomical Region Laterality Modality Head Magnetic [...] who have questions please contact the health healthcare translator that requested your imaging first. ? Electronically signed by: Raudel Heredia MD, [facility] ([phone]), at 2024 4:46 PM Narrative 2024 4:46 [...] clip with its blades near the right PROTECTION ANALYST. Procedure Note Raudel Heredia MD - 2024 [...] aneurysm clipwith its blades near the right PROTECTION ANALYST. IMPRESSION Homogeneously enhancing 3.5 cm mass along [...] patients who have questions please contactthe health healthcare translator that requested your imaging first. Marline Calderon [...] Head (06/14/2024 9:46 AM EST) WORKSTATION ID [id number] RAD Anatomical Region Laterality Modality Head SO [...] who have questions please contact the health healthcare translator that requested your imaging first. ? Narrative 06/14/2024 10:41 AM EST EXAMINATION: REQUEST FOR 2ND READ CT HEAD CLINICAL HISTORY: New seizure with known mass, ?enlargening. Presenting with seizure; Sending Institution [facility]; Date of exam [id number]; I believe a reinterpretation of this exam may alter care of Patient. Yes TECHNIQUE: Reinterpretation of noncontrast CT head performed at [facility] 06/13/2024 at 2143 hours COMPARISON: [...] mass, ?enlargening. Presentingwith seizure; Sending Institution [facility]; Date of exam [id number]; I believe a reinterpretation of this exam may alter care of Patient. Yes TECHNIQUE: Reinterpretation of noncontrast CT head performed at [facility] 06/13/2024 at 2143 hours COMPARISON: [...] patients who have questions please contactthe health healthcare translator that requested your imaging first. Lexie Osullivan APRN IMG OUTSIDE INTERP RETATION ORDERABLES * (ABNORMAL) Urinalysis Microscopic (06/14/2024 8:06 AM EST) Bacteria, Urine None None /HPF 12:26 PM EST [facility] Amorphous Crystals, Urine Many(A) None /HPF 06/14/2024 12:26 PM EST [facility] RBC, Urine 1 0 - 3 /HPF 06/14/2024 12:26 PM EST [facility] WBC, Urine 1 0 - 3 /HPF 06/14/2024 12:26 PM EST [facility] Squamous Epithelial Cells, Urine 0 0 - 5 /HPF 06/14/2024 12:26 PM EST [facility] Hyaline Casts, Urine 0 0 - 2 /LPF 06/14/2024 12:26 PM EST [facility] Urine URINE SPECIMEN / Unknown Non Blood Collection / Unknown 06/14/2024 8:06 AM EST 06/14/2024 8:52 AM EST Marlnie Calderon TECHNICAL TRAINING SPECIALIST URINE ORDERABLES [facility] [place] [address] * Urinalysis Microscopic Exam (06/14/2024 8:06 AM EST) Urine URINE SPECIMEN / Unknown Non Blood Collection / Unknown 06/14/2024 8:06 AM EST 06/14/2024 8:52 AM EST Marline Calderon APRN URINE ORDERABLES [facility] [place] [address] * Electrolytes, urine, random (06/14/2024 8:06 AM EST) Sodium, Urine 76 mMol/L 06/14/2024 10:44 AM EST [facility] Potassium, Urine 41 mMol/L 06/14/2024 10:44 AM EST [facility] Chloride, Urine 52 mMol/L 06/14/2024 10:44 AM EST [facility] Urine URINE SPECIMEN / Unknown Non Blood Collection / Unknown 06/14/2024 8:06 AM EST 06/14/2024 8:52 AM EST Mariola Alfred MD URINE ORDERABLES Performing Organization Address City/[facility]/ZIP Co de Phone Number [facility] [place] [address] * Osmolality, urine, random (06/14/2024 8:06 AM EST) Osmolality, Urine 496 50 - 1,200 mOsm/kg 06/14/2024 10:55 AM EST [facility] Urine URINE SPECIMEN / Unknown Non Blood Collection / Unknown 06/14/2024 8:06 AM EST 06/14/2024 8:52 AM EST Mariola Alfred MD URINE ORDERABLES [facility] [place] [address] * (ABNORMAL) Urinalysis Dipstick (06/14/2024 8:06 AM EST) Glucose, Urine Dipstick Negative Negative 06/14/2024 12:26 PM [facility] Protein, Urine Dipstick Negative Negative 06/14/2024 12:26 PM [facility] Bilirubin, Urine Dipstick Negative Negative 06/14/2024 12:26 PM [facility] Comment:Clinical correlation required for positive Urine Bilirubin results as false positive may occur with some drugs and drug related products. If a false positive is suspected a serum total bilirubin should be considered if clinically indicated. Urobilinogen, Urine Dipstick Normal Normal, 0.2 mg/dL, 1.0 mg/dL 06/14/2024 12:26 PM [facility] pH, Urine (dipstick) 7.0 5.0 - 8.0 06/14/2024 12:26 PM [facility] Blood, Urine Dipstick Negative Negative 06/14/2024 12:26 PM [facility] Ketone, Urine Dipstick Negative Negative 06/14/2024 12:26 PM [facility] Nitrite, Urine Dipstick Negative Negative 06/14/2024 12:26 PM [facility] Leukocytes, Urine Dipstick Negative Negative 06/14/2024 12:26 PM [facility] Specific [place] Urine Automated 1.016 1.005 - 1.030 06/14/2024 12:26 PM [facility] Appearance, Urine Dipstick Turbid(A) Clear 06/14/2024 12:26 PM [facility] Color, Urine Dipstick Yellow Yellow, Dark Yellow 06/14/2024 12:26 PM [facility] CULTURE ADDED? 06/14/2024 12:26 PM [facility] Urine URINE SPECIMEN / Unknown Non Blood Collection / Unknown 06/14/2024 8:06 AM EST 06/14/2024 8:52 AM EST Marline Calderon APRN URINE ORDERABLES [facility] [place] [address] * (ABNORMAL) Blood Gas, Venous POC (06/14/2024 1:35 AM [facility]) pH, Venous 7.39 7.32 - 7.42 06/14/2024 1:36 AM [facility] PCO2, Venous 37(L) 38 - 58 mmHg 06/14/2024 1:36 AM [facility] PO2, Venous 27 16 - 65 mmHg 06/14/2024 1:36 AM [facility] Bicarbonate, Venous 21.9(L) 22 - 31 mmol/L 06/14/2024 1:36 AM [facility] Base Excess, Venous -3.1(L) 1.9 - 4.5 mmol/L 06/14/2024 1:36 AM [facility] Hemoglobin, Venous 13.4(L) 13.7 - 16.5 g/dL 06/14/2024 1:36 AM [facility] Oxyhemoglobin, Venous 46.8 % 06/14/2024 1:36 AM [facility] Carboxyhemoglobin , Venous 0.7 % 06/14/2024 1:36 AM [facility] Comment: Nonsmokers: 0.5-1.5% COHB ?? Smokers: Variable ??but usually less than 10% ?? Toxic: 20-30% COHB ?? Lethal: Greater than 60% COHB Methemoglobin, Venous 0.3 <=1.5 % 06/14/2024 1:36 AM [facility] Sodium, Venous 123(L) 135 - 145 mmol/L 06/14/2024 1:36 AM [facility] Potassium, Venous 3.7 3.5 - 5.0 mmol/L 06/14/2024 1:36 AM [facility] Chloride, Venous 92(L) 98 - 107 mmol/L 06/14/2024 1:36 AM [facility] Glucose, Venous 85 65 - 199 mg/dL 06/14/2024 1:36 AM EST [facility] Comment:Glucose Concentratio n >=200 mg/dL plus symptoms is consistent with Diabetes Mellitus. Lactate, Venous 2.3(H) 0.5 - 2.2 mmol/L 06/14/2024 1:36 AM EST [facility] Ionized Calcium, Venous 1.10(L) 1.15 - 1.33 mmol/L 06/14/2024 1:36 AM EST [facility] Blood VENOUS BLOOD SPECIMEN / Unknown 06/14/2024 1:35 AM EST 06/14/2024 1:36 AM EST Mariola Alfred MD POINT OF CARE TEST O RDERABLES Performing Organization Address City/[facility]/ZIP Co de Phone Number [facility] [place] [address] * Scan, Peripheral Blood (06/14/2024 1:03 AM EST) Pathologist [facility] RBC Morphology Abnormal 06/14/2024 2:00 AM [facility] Platelet Estimate Normal Normal 06/14/2024 2:00 AM [facility] Microcyte 1-5 /HPF 06/14/2024 2:00 AM [facility] Tear Cell 1-5 /HPF 06/14/2024 2:00 AM [facility] Blood VENOUS BLOOD SPECIMEN / Unknown Venipuncture / Unknown 06/14/2024 1:03 AM EST 06/14/2024 1:08 AM EST Mariola Alfred MD HEMATOLOGY ORDERABLE S [facility] [place] [address] * Zonisamide level (06/14/2024 1:03 AM EST) Pathologist [facility] Zonisamide Lvl November 17 10 - 40 mcg/mL 06/16/2024 9:22 PM EST [facility]F [facility] [place] Comment: ADDITIONAL INFORMATION This test was developed and its performance characteristics determined by [facility] in a manner consistent with CLIA requirements. This test has not been cleared or approved by the U.S. Food and Drug Administration. Blood VENOUS BLOOD SPECIMEN / Unknown Venipuncture / Unknown 06/14/2024 1:03 AM EST 06/14/2024 1:08 AM EST Narrative REF LAB [place] - 06/16/2024 9:22 PM EST Test Performed by: [facility] [place] [address] Strategy Specialist: Xavier Velásquez Ph.D.; CLIA# [id number] Mariola Alfred MD LAB SEND OUT ORDERAB LES Performing Organization Address City/[facility]/ZIP Co de Phone Number REF LAB [address] * T3 Total (06/14/2024 1:03 AM EST) T3 Total 87 80 - 200 ng/dL 06/14/2024 1:46 AM EST [facility] Blood VENOUS BLOOD SPECIMEN / Unknown Venipuncture / Unknown 06/14/2024 1:03 AM EST 06/14/2024 1:08 AM EST Mariola Alfred MD CHEMISTRY ORDERABLES Performing Organization Address City/[facility]/ZIP Co de Phone Number [facility] [place] [address] * T4, free (06/14/2024 1:03 AM EST) Free T4 1.37 0.93 - 1.70 ng/dL 06/14/2024 1:46 AM EST [facility] Blood VENOUS BLOOD SPECIMEN / Unknown Venipuncture / Unknown 06/14/2024 1:03 AM EST 06/14/2024 1:08 AM EST Mariola Alfred MD CHEMISTRY ORDERABLES [facility] [place] [address] * (ABNORMAL) Osmolality (06/14/2024 1:03 AM EST) Osmolality 259(L) 275 - 295 mOsm/kg 06/14/2024 1:40 AM EST [facility] Blood VENOUS BLOOD SPECIMEN / Unknown Venipuncture / Unknown 06/14/2024 1:03 AM EST 06/14/2024 1:08 AM EST Mariola Alfred MD CHEMISTRY ORDERABLES Performing Organization Address City/[facility]/ZIP Co de Phone Number [facility] [place] [address] * Film Library- Storage Only CT Head (06/13/2024 12:00 AM EST) Narrative [facility] - 06/14/2024 12:43 AM EST This exam is auto-finalizing. It's purpose is for storage only. Ren Vaz MD IMG FILM LIBRARY ORD ERABLES Performing Organization Address City/[facility] Co de Phone Number [place], [place] from Last 3 Months Advance Directives Documents on File Type Date Recorded Patient Cath Laboratory Technician Expl anation Guardianship document 06/22/2024 1:11 PM [...] Name (and relationship if needed): sister Jayme [facility] Coordinator Relationship Specialty Start Date End Date Jimbo More PA [address] [place] [address] PCP - General Internal Medicine 06/18/24
--- OUTSIDE RECORDS SUMMARY | 2024-07-30 03:08 | XMS_ITS | Encounter Summary ---
Author Organization [facility] [place] [address] Care Team Providers Care Radio Interference Expert Name Role Phone Jimbo More Primary Care Provider + Reason for Visit * Auth/Cert (Routine) Specialty Diagnoses / Procedures Referred By Duyen bui Referred To Contact Diagnoses Hyponatremia hyponatremia Procedures ER IPI Mariola Alfred MD [facility] [address] [facility] Referral ID Status Reason Start Date Expiration Date Visits Re quested Visits Authorized [id number] 1 1 Encounter Details Date Type Department Care Team (Late st Contact Info) Description 06/14/2024 12:57 AM EST - 06/21/2024 3:06 PM EST Hospital Encounter Neuro Special Care Unit Level 3 [place] [address] Mariola Alfred MD [facility] [address] Christopher Stanley [place] [address] [place] [address] [place] [address] [place] [address] Sleep disorder; Hyponatremia; Agitation Discharge Disposition: Prison Facility Social History Tobacco Use Types Packs/Day Years Used Date Smoking Tobacco: Never Smokeless Tobacco: Never Alcohol Use Standard Drinks/Week Comments No 0 (1 standard drink = 0.6 oz pur e alcohol) [facility] Utilities Answer Date Recorded In the [...] needed. Per discussion with Madeleine from the [facility]. She notes his [...] has been significant for: Hyponatremia: Presented to [facility] following witnessed tonic-clonic seizure at half-way, found to have sodium of 122. On [...] in September 2023. On second read of [facility] scan described as hypoattenuating, likely cystic [...] Seizures: 2 min tonic-clonic seizure witnessed at [facility], 30 sec seziure at [facility] ED (2mg ativangiven). None since arrival [...] 97 % No results for input(s): PHART, MNQ4KIS, PO2ART, GBE8DVL in the last 168 hours. I/O: Date 06/21/24 0700 - 06/22/24 0659 Shift 8056-2284 2444-1285 6527-1368 24 Hour Total INTAKE P.O. 354 354 [...] Procedure Component Value Units Date/Time Blood culture [[id number]] (Abnormal) Collected: 06/18/241899 Lab Status: Preliminary result [...] a previously preliminary verified report. Blood culture [[id number]] Collected: 06/18/241899 Lab Status: Preliminary result Specimen: [...] Center 07/20/2024 1:30 PM Eron Barriga MD [facility] [id number] [facility] * Attachments The following attachments cannot be sent through Care Everywhere. * Hyponatremia (Lebanese) documented in this encounter Medications at Time [...] tablet by mouth 2 times daily. 09/28/2021 mupirocin (Bactroban) 2 % Ointment 09/10/2021 [...] morning. 30 tablet 3 03/12/2018 hydrocortisone (CORTEF) 20 mg Tablet Take 1 [...] spent >30 minutes (Day of Discharge Code 35692) involved in the final examination of the patient, discussion of the hospital stay, instructions for continuing care to all relevant caregivers, and preparation of discharge records, prescriptions and referral forms. Plans Discharge to mcc Follow-up scheduled with PCP and neurosurge Please [...] appropriate/able. Sunitha Sanderson PT, DPT, NCS Pager: [phone] Physical Therapy Inpatient Rehabilitation Department * Martinez [...] not moving extremities Labs: Recent Labs 06/20/24 00506/19/24 0410 06/18/24 0126 WBC 5.59 6.86 9.78* [...] 168 hours. No results for input(s): PHART, TZY6SFZ, PO2ART, SYY4MAE in the last 168 hours. Microbiology: None [...] needed. Per discussion with Madeleine from the [facility] where he lives 06/17. She notes his [...] Code Status: FULL - Dispo: Back to mcc when Martinez Reynolds MD Hospital medicine Service: [...] 168 hours. No results for input(s): PHART, KQB7PQS, PO2ART, NFL2XTC in the last 168 hours. Microbiology: None [...] citrate AND Tap water enema Assessment/Plan: Abram Burogs is a 34 y.o. male with PMH [...] needed. Per discussion with Madeleine from the [facility] where he lives 06/17. She notes his [...] Code Status: FULL - Dispo: Back to mcc when Martinez Reynolds MD [facility] medicine Service: 8070 06/19/2024 * Shola Morris MD - 06/19/2024 10:15 AM EST Images from the original note were not included. Endocrinology Follow up Note Name: Abram Burgos Date: 06/19/24 Room: [address] [place] [address] Reason for Consult: panhypopituitarism HPI Abram Burgos [...] access to additional DDAVP dosing at his mcc after speaking with Jennifer from the [facility]cc. Possibility of him having access to additional water/fluid intake over the last few weeks. Bettina said that this is possible given there is often respiratory care technician turnover and not everyone is up to date on what is recommended. He is on a 3.5 L restriction per day at the mcc. Patient was continued on home dose of [...] - will need follow up with his Cloth Spreader, Dr. Zaidi or Dr. Day Littlejohn at discharge Endocrinology will sign off at this time but are available for any questions or concerns during hisremaining hospital stay. Thank you for allowing us to participate in the care of this patient. Discussed with Dr. Morris. Crista Gill MD. PGY4 [facility] Endocrinology I have seen the patient and [...] take POat this time Shola Morris MD Machine Tank Operatorregional engagement consultant Endocrinology Section [facility] * Doris Judd MD - 06/19/2024 6:58 [...] glean yes and no Language: fluent in occitan and with word finding difficulty Mood: awesome [...] seems that this struggle is also a truss driver helper of agitation, and one of the aspects that makes it hard for him to be here in the hospital. Meeting his physical comfort needs such as pain physical discomfort such as itching will also be important. 06/18/2024-Abram has been agitated overnight and has been un directable at times. Per collateral from his mcc, this is a baseline that has been going on for many months. On learning of his mcc regimen, not reflected in surescripts, we will [...] - start 600mg BID, titrate to MDD 4912-6652 in divided doses - monitor for increased respiratory secretions -discontinue depakote Patient on IEA Status? IEA: NO, patient is not an on IEA. Awaiting voluntary psychiatric placement but safety concerns exist if patient decides to leave and will require urgent psychiatric assessmentprior to discharge or leaving AMA. Recommendations were communicated to primary team supervisor Dr. Johnson. H Samson Judd MD 06/19/2024 [...] Minimal/Low [] Low [] Minimal/Low [] Low 22662 [] Moderate [] Moderate [] Moderate [] Moderate 95204 [] High [] High [] High [] High 92245 Final Coding Determination: Moderate * Pamela Johnson DO - 06/18/2024 5:51 PM EST Inpatient Medicine Progress Note Hospital Day 4 days Active Hospital Problems Diagnosis Hyponatremia Resolved Hospital Problems No resolved problems to display. Patient ID: Arbam Burgos is a 34 y.o. male admitted [...] 168 hours. No results for input(s): PHART, OPD1DRL, PO2ART, BSE3HSU in the last 168 hours. Microbiology: None [...] needed. Per discussion with Madeleine from the [facility] where he lives 06/17. She notes his [...] Code Status: FULL - Dispo: Back to mcc when Pamela Emerald DO Alex [facility] medicine Service: 7657 06/18/2024 * Jaja Chin MD - 06/18/2024 [...] the surgery even harder. Bettina shares that arbam understands everything and has excellent hearing and [...] not medically ready but will return to [facility]cc when MR. [facility] [address] [facility] [address] [place] [address] '[phone] Spoke with Jennifer Woods RN. Updated not anticipated discharge until next week. Will submit referralto [facility] to update facility with clinicals. [facility] provides transport. * Sunitha Sanderson PT - 06/18/2024 10:49 AM EST Physical Therapy Contact Note 06/18/24 9201 Evaluation & Treatment Document Type contact Total Minutes, Physical Therapy 0 Comment, Session Not Performed Checked in with nursing, pt awaiting stat HCT for somnolence. PT will defer and follow up as appropriate/able. Sunitha Sanderson PT, DPT, NCS Pager: [phone] Physical Therapy Inpatient Rehabilitation Department * Zoë [...] mg at 22:55. His medications from his mcc were shared by their staff, with his home medicationregimen being 200 XL seroquel nightly and 100 mg BID with 100 mg PRN daily and hetlioz 20 mg qHS and melatonin nightly. Per Dr. Benítez in conversation with Madeleine from his mcc, Abram goes from 0-100 very quickly and will throw things and become agitated in his home setting, and that this has been going on for many months now. On interview this morning: Abram is lying in bed under the covers having his vitals checked. He denies pain, thoughts of hurting himself,f and denies needing anything at this time. His FUNERAL PRE ARRANGEMENT SPECIALIST at bedside shares that he has been [...] glean yes and no Language: fluent in occitan and with word finding difficulty Mood: no [...] seems that this struggle is also a truss driver helper of agitation, and one of the aspects that makes it hard for him to be here in the hospital. Meeting his physical comfort needs such as pain physical discomfort such as itching will also be important. 06/18/2024-Abram has been agitated overnight and has been un directable at times. Per collateral from his mcc, this is a baseline that has been going on for many months. On learning of his mcc regimen, not reflected in surescripts, we will [...] AMA. Recommendations were communicated to primary team supervisor Dr. Johnson. Jaja Chin MD 06/18/2024 Coding [...] Minimal/Low [] Low [] Minimal/Low [] Low 54012 [] Moderate [] Moderate [] Moderate [] Moderate 56369 [] High [] High [] High [] High 94459 Final Coding Determination: Moderate Associated attestation - [...] it as a standing medication at his mcc). Given his mild increase in LFTs we [...] Brittny Hanna MD Department of Psychiatry Pager #[phone] * Pamela Johnson, - 06/17/2024 5:30 PM [...] deficits grossly noted. Labs: Recent Labs 06/17/24 00206/16/24806/15/245 WBC 6.81 7.71 6.30 HGB 12.9* 11.7* [...] 168 hours. No results for input(s): PHART, ZXQ4JCH, PO2ART, CEQ9FTB in the last 168 hours. Microbiology: None [...] 3L daily. Spoke to Madeleine from the [facility] where he lives. She notes his baseline fluid goal was 3.5L (1.). Perhaps this was too much fluid for [...] Code Status: FULL - Dispo: Back to mcc when MR Pamela Corbin Ana MaríadanielaDO [facility] medicine Service: 2900 06/17/2024 * Roya Kingsley, [...] Surgical History: Procedure Laterality Date PRO OPEN JOURNEYMAN POWER PLANT OPERATOR FIX ACETABULAR FX Left 09/04/2017 @OPEN TREATMENT, ACETABULAR FX (WRVU 25.41) performed by Amy Lance MD at [facility] Social History: Patient lives in a [facility]. Home Setup: accessible DME: none Baseline ADL/Mobility: [...] from EOB: min assist x 2 with INGREDIENT SPECIALIST Pt able to side step to L side ~4-5 steps with min assist x 2 using INGREDIENT SPECIALIST, cues provided for step initiation and sequencing Stand to sit x 2: min assist x 2 with INGREDIENT SPECIALIST Sit to supine: mod assist x 2 [...] minimal side steps to L side with INGREDIENT SPECIALIST. Unsure of pt's most recent functional status but anticipate pt will be able to return to his mcc pending level of assistance they can provide. Pt will benefitfrom ongoing therapeutic interventions to achieve pt's and therapy goals. Anticipated Discharge Disposition (OT): other (see comments) (return to mcc) Equipment Recommendations: Equipment Needs Upon Discharge (OT): [...] Minutes, Occupational Therapy: 28 (09:42-10:10 SCx2) Pager: [phone] Roya Kingsley OTR/L Occupational Therapy Rehabilitation Department [...] EEG CONTINUOUS MONITORING INPATIENT 2024 PRO OPEN JOURNEYMAN POWER PLANT OPERATOR FIX ACETABULAR FX Left 09/04/2017 @OPEN TREATMENT, ACETABULAR FX (WRVU 25.41) performed by Amy Lance MD at [facility] Social History: Home setup: Pt resides in an accessible m[facility] in [facility] Baseline Mobility/Prior level of function: Had [...] to swing bed rehabilitation vs return to mcc when medically stable, pending functional progress while in the hospital and level of care available at mcc. Pt will benefit from ongoing physical therapy to address the above impairments and facilitate return to OF. Discharge Recommendations: Based on the current findings, Anticipated Discharge Disposition (PT): swing bed rehabilitation facility, adult foster care/mcc when medically ready for hospital discharge. Plan: [...] (admitted for seizures; complex PMH; lives in mcc) Examination of body system impairments, functional limitations and behaviors, and/or participation restrictions. Addressing 1-2 elements Addressing 3 + elements Addressing 4 + elements X Clinical presentation: See assessment above. Stable/Uncomplicated Evolving/Fluctuating Symptoms Unstable/Unpredictable X Clinical decision making of moderate complexity based on pt's functional performance as outlined inthis evaluation. Time IN / OUT: 7264-0814 Total Minutes, Physical Therapy: 30 (eval). Ludivina Stover, PT DPT 06/16/2024 Pager: [phone] Physical Therapy Inpatient Rehabilitation Department * Christopher [...] seizures in the setting of hyponatremia and TOOL AND GAUGE INSPECTOR structural abnormalities. This most likely provoked by new hyponatremia rather than chronic structural brain disease. Our working theory is hyponatremia provoked by issues with fluid restriction at his mcc, and it is so far improving at [...] minimumof two midnights or is on the [facility] inpatient only procedure list (status C) due to: monitoring of fluid status given an inability to regulate fluid balance and the need for administration or restriction of fluids and breakthrough seizures * Lauren Ruby MD - 06/16/2024 6:54 AM EST [facility] NEUROSURGERY PROGRESS NOTE ID: Abram Burgos [...] admit with jazmín of 122 while at [facility] thus far corrected to 131). Therefore no acute neurosurgical intervention warranted. We will follow up with the patient and hisfamily/legal guardian outpatient to discuss management options. We are signing off for now, rest ofcare per primary, but remain available at pager [phone] should further questions/concerns arise. Plan: -No acute neurosurgical intervention warranted -We are signing off now, but will follow up outpatient with patient/family to discuss management options -Rest of care per primary including frequency of neuro checks For questions please call NSGY pager [phone] Lauren Ruby MD 06/16/2024 7:22 AM Clinical [...] follow up with him tomorrow. Maxine Silverio, DAVONTE Pager [phone] * Christopher Stanley MD - 2024 8:13 [...] seizures in the setting of hyponatremia and TOOL AND GAUGE INSPECTOR structural abnormalities. This most likely provoked by new hyponatremia rather than chronic structural brain disease, but as yet uncertain. Our working theory is hyponatremia provoked by issues with fluid restriction at his mcc, and it is so far improving at [...] O2 Device RA Maxine Silverio, PT Pager [phone] * Wilder Davis - 06/14/2024 11:19 AM [...] adjusted based on our knowledge. Was at mcc when he had ~2 minute tonic clonic seizure. Presented to [facility] where he was found to be hyponatremic. Given hypertonic saline and ativan and transferred to [facility]. Physical Exam Last value Range last 24 [...] seizures in the setting of hyponatremia and TOOL AND GAUGE INSPECTOR structural abnormalities. His hyponatremia is likely mixed: [...] minimumof two midnights or is on the [facility] inpatient only procedure list (status C) due to: monitoring of fluid status given an inability to regulate fluid balance and the need for administration or restriction of fluids and seizur * Kvng Marline L, SPINNING BATH PATROLLER - 06/14/2024 6:42 AM EST Critical Care Progress Note Abram Burgos : 1990 Admitted: 06/14/2024 12:57 AM Hospital day: 0 ICU day: ID: Abram Burgos is a 33 y.o. 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 He was found to be hypon atremic to 121 (from apparent baseline in 140s). At [facility] he received 150cc 3% NaCl and 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 He wastransferred to [facility] where sodium of 122 was treated with 50cc 3%NaCl and Neutra-Phos. No evidence of seizure since arrival. Neurology, neurosurgery, and endocrine teams were consulted. Hospital/ICU course has been significant for: #Hyponatremia #Seizure Activity (prior to arrival at [facility]) #possible enlarging lesion in R middle cranial fossa 24-hour events: -Transferred to [facility] -Na treated with 3% (once at OSH, [...] Line): -- No results for input(s): PHART, ISE0FVB, PO2ART, OVY2LSC in the last 168 hours. Intake/Output Summary [...] clear culprit meds on his list.At his mcc he is maintained on a 3.5L fluid [...] Lizeth Calderon APRN June 14, 2024 Pager #[phone] Critical Care Green Team documented in this encounter H&P Notes * Tim uYen MD - 06/16/2024 11:50 AM EST Medicine [...] with seizures. The patient was transferred from [facility] from a [facility] ([facility]) for a seizure. He had been in his usual state of health, though notably he did have COVID within the past month. He reported that he had not been missing any of his medications, however due to some recent behavioral troubles and problems with sleeping, some of his medications have been altered recently. Hospital course notable for: Hyponatremia: Presented to [facility] following witnessed tonic-clonic seizure at half-way, found to have sodium of 122. On [...] in September 2023. On second read of [facility] scan described as hypoattenuating, likely cystic [...] Seizures: 2 min tonic-clonic seizure witnessed at mcc, 30 sec seziure at [facility] ED (2mg ativangiven). None since arrival [...] EEG CONTINUOUS MONITORING INPATIENT 2024 PRO OPEN JOURNEYMAN POWER PLANT OPERATOR FIX ACETABULAR FX Left 09/04/2017 @OPEN TREATMENT, ACETABULAR FX (WRVU 25.41) performed by Amy Lance MD at [facility] Social History: Social History [...] file Social History Narrative [place] [facility] moved in 11/07/2014. Social Determinants of Health [...] 06/14/2024 4:02 AM) Result Value WORKSTATION ID [id number] Narrative EXAMINATION: XR CHEST ONE VIEW CLINICAL [...] who have questions please contact the health farm or ranch animal caretaker that requested your imaging first. Electronically signed by: Beverley Valencia MD, [facility] ([phone]), at 06/14/2024 4:32 AM Request For 2nd Read CT Head (Exam End: 06/14/2024 9:46 AM) Result Value WORKSTATION ID [id number] Narrative EXAMINATION: REQUEST FOR 2ND READ CT HEAD CLINICAL HISTORY: New seizure with known mass, ?enlargening. Presenting with seizure; Sending Institution [facility]; Date of exam [id number]; I believe [...] who have questions please contact the health farm or ranch animal caretaker that requested your imaging first. Electronically signed by: Galen Balderas [facility] ([phone]), at 06/14/2024 10:41 AM MRI Brain wwo Contrast (Generic) (Exam End: 2024 4:20 PM) Result Value WORKSTATION ID [id number] Narrative EXAMINATION: MRI BRAIN WWO CONTRAST (GENERIC) [...] clip with its blades near the right LOTUS NOTES ADMINISTRATOR. Impression Homogeneously enhancing 3.5 cm mass along [...] who have questions please contact the health farm or ranch animal caretaker that requested your imaging first. Electronically signed by: Raudel Heredia MD, [facility] ([phone]), at 2024 4:46 PM ASSESSMENT and PLAN: [...] Tim Yuen MD Internal Medicine PGY-2 Pager: [phone] 06/16/24 Associated attestation - Cahnning Ballesteros MD - 06/16/2024 3:58 PM EST [...] with seizures. HPI: Per report presented to [facility] from a [facility] ([facility]) for seizure. He has been in his usual state of health although did have covid within the past month. He has been taking his medications as prescribed although due to behavioral troubles and problems sleeping some of his medications have been altered recently. This afternoon at his mcc he had a two minute whitnesses tonic [...] encephalomalacia Interventions that the pt received at [facility] included 150cc 3% NaCl, 100mg of hydrocortisone and a dose (unknown amount) of desmopressin. [facility] was contacted for transfer. Neuro critical care [...] Surgical History: Procedure Laterality Date PRO OPEN JOURNEYMAN POWER PLANT OPERATOR FIX ACETABULAR FX Left 09/04/2017 @OPEN TREATMENT, ACETABULAR FX (WRVU 25.41) performed by Amy Lance MD at [facility] No family history on file. Social History: Lives in a mcc. Ventilator Settings: Room air. Physical Exam: General: [...] 127 from the time of arrival to [facility] Should attempt 6mMol/L increase in Na [...] NAKIA Blair June 14, 2024 Critical Care [place] Team (pager [phone]) Dr. Alfred is the attending of record for this admission documented in this encounter Procedure Notes * Joey Moura MD - 06/18/2024 1:58 PM EST [facility] Department of Neurology Inpatient Routine EEG Report [...] channel digitized electroencephalogram was performed in the [facility] Clinical Neurophysiology Laboratory. The 10/20 international system of electrode placement was used and bipolar and referential electrode montages were recorded. In addition to EEG the patient was monitored for EKGand lateral/vertical eye movements. Video was recorded during the session. MEDICAL BILLER/CODER'S REPORT: Performed by: Ingrid Shi Patient was [...] agree with the report. Rosa Quezada MD [facility] Neurology * Camron Gee MD - 2024 5:19 PM ESTProcedure(s): EEG CONTINUOUS MONITORING INPATIENT [facility] Department of Neurology Inpatient Continuous Video EEG Tail Report Name of the Patient: Abram Burgos Date of : 1990 [facility] Date of Service: 2024 Referring physician: Marline [...] EKG. Video was recorded during the session. MEDICAL BILLER/CODER'S REPORT: Performed by: At the onset of [...] seen during this epoch. Rashard Navarrete MD PAPERHANGER AND PAINTER Fellow, PGY-5 2024 EPILEPSY ATTENDING ADDENDUM - I reviewed the EEG with the PAPERHANGER AND PAINTER/Epilepsy fellow, and I agree with the interpretation as documented. Camron Gee MD, PhD Professor of Neurology [facility] Clinical Neurophysiology Laboratory [facility] Rashard Castrejon MD - 06/14/2024 3:33 PM [...] Castrejon MD - 06/14/2024 3:03 PM EST [facility] Department of Neurology Inpatient Continuous Video EEG Report Name of the Patient: Abram Burgos Date of : 1990 [facility] Date of Service: 06/14/2024 Referring [...] EKG. Video was recorded during the session. MEDICAL BILLER/CODER'S REPORT: Performed by: At the onset of [...] seen during this epoch. Rashard Navarrete MD PAPERHANGER AND PAINTER Fellow, PGY-5 06/14/2024 Associated attestation - Camron Gee MD - 2024 1:03 PM EST EPILEPSY ATTENDING ADDENDUM - I reviewed the EEG with the PAPERHANGER AND PAINTER/Epilepsy fellow, and I agree with the interpretation as documented. Given the lack of evidence for underlying epileptic seizures from this recording of ~24 hours, we'd recommend considering discontinuing the CEEG study. We are available to discuss this matter with the Neurology consultation and inpatient bravo team. Camron Gee MD, PhD Professor of Neurology [facility] Epilepsy [place] Clinical Neurophysiology Laboratory [facility] documented in this encounter Miscellaneous Notes * Plan of Care - Bell Amezcua RN - 06/21/2024 3:04 PM EST Abram Burgos discharged to care home by care facility's vehicle with staff from [facility]. All belongings sent with patient. ALLISON removed, [...] Patient is medically ready for discharge to [address] [place] [address] '[id number] . School Cafeteria Head Cook: Kemi Noriega at [facility] will be picking him up. I also spoke with Bettina Burgoshis Guardian to give her updates. Needs for Transition of Care: Plan for discharge is: Prison Facility / Swing Outpatient Agency/Support Group Needs: half-way Agency Referrals & Follow-up Care: Transportation: School Cafeteria Head Cook: Kemi Hari at [facility] will be picking him up. I also spoke with Bettina Burgos his Guardian to give her updates Wheelchair van/Ambulance? No Functional status prior to admission: Assistive Equipment and Assistive Person Home Environment: Others in the home: other (see comments) (Lives in a mcc.). Current LivingArrangements: mcc. Accessibility Concerns:Easy access to his surroundings. Fully [...] plan was formulated with input from patient, School Cafeteria Head Cook: Kemi Noriega at [facility] will be picking him up. I also spoke with Bettina Burgos his Guardian to give her updates and team Dr. Reynolds. All are in agreement with plan. Sudarshan Marie NONPROFIT DIRECTOR [facility] * Plan of Care - Erik [...] better mood today, less agitation. Visitor from [facility]. Downgraded to med surg. PLAN MOVING FORWARD: [...] been altered recently. This afternoon at his mcc he had a two minutewitnessed tonic clonic [...] nightly to twice daily dosing at his mcc, which she had not been on before. 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 Sister reports that he has had low sodium in the past, she believes in the 120s or lower, but has not triggered seizures in the past. Patient has previously been seen at [facility] in 2014. His deficits at that time included left hemiparesis, cortical blindness, urine incontinence, dysarthria and gait disorder. 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 According to [facility] documentation, he had a spell at his mcc that was concerning for seizure one month prior to his visit. BG at the time was in the 40s and he was started on Keppra in addition to Zonegran. [facility] neurologist planned for discontinuation of Keppra at [...] 2 mg Intramuscular BID PRN Floyd Johnson, DO acetaminophen (Tylenol) tablet 975 mg [...] (WRVU *) performed by JERSEY, ANESTHESIA-GEORGIE at [facility] [place] PRO OPEN JOURNEYMAN POWER PLANT OPERATOR FIX ACETABULAR FX Left 09/04/2017 @OPEN TREATMENT, ACETABULAR FX (WRVU 25.41) performed by Amy Lance MD at [facility] Allergies: Allergies Allergen Reactions [...] 100 % SpO2: [100 %] I/O: 06/17 07 - 06/18 700 In: 2906 [P.O.:2836; I.V.:70] Out: 175 [Urine:175] Extremities: Excoriations and scabs throughout extremities and torso, mitts in place Neuro: Somnolent, able to slightly open eyes to noxious stimulation, arouses further with pupillary assessment, using right hand to rub left eye Disconjugate gaze No facial asymmetry Able to weakly kettle coordinator BL hands 2/5, wiggles BL toes to [...] displayed. Last 3 LFTs Recent Labs 06/18/24 01206/17/24 1158 AST 52* 37 ALT 61* 58* [...] 06/14/2024 4:02 AM) Result Value WORKSTATION ID [id number] Impression Low lung volumes with crowding of bronchovascular markings without radiographically evident acute cardiopulmonary process. Thank you for letting us participate in the care of this patient. If you are a health care provider and have any questions regarding this report, please contact the number below. For patients who have questions please contact the health farm or ranch animal caretaker that requested your imaging first. Electronically signed by: Beverley Valencia MD, [facility] ([phone]), at 06/14/2024 4:32 AM Request For 2nd Read CT Head (Exam End: 06/14/2024 9:46 AM) Result Value WORKSTATION ID [id number] Impression Hypoattenuating, likely cystic mass appears to [...] who have questions please contact the health farm or ranch animal caretaker that requested your imaging first. Electronically signed by: Galen Balderas [facility] ([phone]), at 06/14/2024 10:41 AM MRI Brain wwo Contrast (Generic) (Exam End: 2024 4:20 PM) Result Value WORKSTATION ID [id number] Impression Homogeneously enhancing 3.5 cm mass along [...] who have questions please contact the health farm or ranch animal caretaker that requested your imaging first. Electronically signed by: Raudel Heredia MD, [facility] ([phone]), at 2024 4:46 PM Assessment: Abram Burgos [...] Appropriate) * Plan of Care - Dina eWi RN - 06/17/2024 6:59 PM EST OUTCOME EVALUATION NOTE: OUTCOME SUMMARY: Pt's vs, assessments, and medications given as documented. Sitter present at bedside to assist in managing safety. PRN haldol, Seroquel, and ativan given at times of combative, un-redirectable behavior. EKG completed, Qtc within normal limits. Staff member from [facility] came to visit. Scheduled medications adjusted. PLAN [...] focal atrophy Arm flexion 5/5 b/l Hand kettle coordinator 5/5 b/l Able to wiggle toes Reflexes: [...] Neurology to sign off Americo Flores, MS4 [facility] * Care Management - Raudel Tate [...] Guardian Name: Bettina Burgos-sister Guardian Contact Information: [phone] Financial Decision Maker: Guardian Guardianship paperwork on file: 1 Guardian Name: see above Guardian Contact Information: see above Functional status prior to admission: Assistive Equipment and Assistive Person Home Environment: Others in the home: other (see comments) (Lives in a mcc.). Current LivingArrangements: mcc. Accessibility Concerns: Easy access to his surroundings. [...] Recommendation: swing bed rehabilitation facility, adult foster care/mcc with to be determined Last Occupational Therapy Recommendation: adult foster care/mcc (pending on progress) with to be determined Plan for discharge is: Prison Facility / Swing Transition Plan for After Rehab: [facility] Outpatient Agency/Support Group Needs: half-way Agency Choices: [facility] Agency Referrals: Current referrals placed to: N/A Transportation: Barriers to discharge: Global: Discharge planning Global Comment: Coordination of returning to [facility]cc Items to Consider for Discharge: Pt's sister and guardian Bettina Burgos has given permission for the following people from his [facility] to receive updates: Lives in [facility]) -Kemi Noriega -half-way rn case management -Ladonna Woods -half-way RN CM Interventions today: CM is notified [...] hx patient anticipated to go return to [facility] ([facility]) with possible VNA services on top what is already offered. The patient's sister and guardian Bettina Sweettomy as assisting with dispo coordination. CM will continue to monitor progress, follow for continuity of care, and assist with discharge planning while patient is inpatient status on current unit. Investigate address and contact information for [facility] ([facility]) and place referral so they have updated information to review to assist in dispo Review team recommendations and place referrals for VNA if medical status changes after treatments/interventions. Monitor and update referrals Anticipated Date of Discharge: 06/18/2024 Raudel Tate RN Case Division Order Analyst of Care Management * Consult Note - [...] been altered recently. This afternoon at his mcc he had a two minutewitnessed tonic clonic [...] nightly to twice daily dosing at his mcc, which she had not been on before. 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 Sister reports that he has had low sodium in the past, she believes in the 120s or lower, but has not triggered seizures in the past. Patient has previously been seen at [facility] in 2014. His deficits at that time included left hemiparesis, cortical blindness, urine incontinence, dysarthria and gait disorder. 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 According to [facility] documentation, he had a spell at his mcc that was concerning for seizure one month prior to his visit. BG at the time was in the 40s and he was started on Keppra in addition to Zonegran. [facility] neurologist planned for discontinuation of Keppra at [...] QAM Tim Yuen MD 20 mg at 06/16/24923 levothyroxine (Synthroid) tablet 200 mcg 200 mcg [...] EEG CONTINUOUS MONITORING INPATIENT 2024 PRO OPEN JOURNEYMAN POWER PLANT OPERATOR FIX ACETABULAR FX Left 09/04/2017 @OPEN TREATMENT, ACETABULAR FX (WRVU 25.41) performed by Amy Lance MD at [facility] Allergies: Allergies Allergen Reactions [...] 06/14/2024 4:02 AM) Result Value WORKSTATION ID [id number] Impression Low lung volumes with crowding of bronchovascular markings without radiographically evident acute cardiopulmonary process. Thank you for letting us participate in the care of this patient. If you are a health care provider and have any questions regarding this report, please contact the number below. For patients who have questions please contact the health farm or ranch animal caretaker that requested your imaging first. Electronically signed by: Beverley Valencia MD, [facility] ([phone]), at 06/14/2024 4:32 AM Request For 2nd Read CT Head (Exam End: 06/14/2024 9:46 AM) Result Value WORKSTATION ID [id number] Impression Hypoattenuating, likely cystic mass appears to [...] who have questions please contact the health farm or ranch animal caretaker that requested your imaging first. Electronically signed by: Galen Balderas [facility] ([phone]), at 06/14/2024 10:41 AM MRI Brain wwo Contrast (Generic) (Exam End: 2024 4:20 PM) Result Value WORKSTATION ID [id number] Impression Homogeneously enhancing 3.5 cm mass along [...] who have questions please contact the health farm or ranch animal caretaker that requested your imaging first. Electronically signed by: Raudel Heredia MD, [facility] ([phone]), at 2024 4:46 PM Assessment: Abram Burgos [...] Holland MD Neurology, PGY-3 Consult Neurology Service #[id number] 06/17/2024 ATTENDING NOTE: I reviewed the pertinent [...] and monitoring equipment. Redirection attempted by unsuccessful. notified. PRN medication given per mar for [...] tends to do much better at his mcc than the hospital environment as he is [...] EEG CONTINUOUS MONITORING INPATIENT 2024 PRO OPEN JOURNEYMAN POWER PLANT OPERATOR FIX ACETABULAR FX Left 09/04/2017 @OPEN TREATMENT, ACETABULAR FX (WRVU 25.41) performed by Amy Lance MD at [facility] Allergies: Allergies Allergen Reactions [...] focal atrophy Arm flexion 5/5 b/l Hand kettle coordinator 5/5 b/l Able to wiggle toes Reflexes: [...] will continue to follow. Americo Flores, MS4 [facility] * Consult Note - Kellen Braxton [...] been altered recently. This afternoon at his mcc he had a two minutewitnessed tonic clonic [...] nightly to twice daily dosing at his mcc, which she had not been on before. 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 Sister reports that he has had low sodium in the past, she believes in the 120s or lower, but has not triggered seizures in the past. Patient has previously been seen at [facility] in 2014. His deficits at that time included left hemiparesis, cortical blindness, urine incontinence, dysarthria and gait disorder. 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 According to [facility] documentation, he had a spell at his mcc that was concerning for seizure one month prior to his visit. BG at the time was in the 40s and he was started on Keppra in addition to Zonegran. [facility] neurologist planned for discontinuation of Keppra at [...] EEG CONTINUOUS MONITORING INPATIENT 2024 PRO OPEN JOURNEYMAN POWER PLANT OPERATOR FIX ACETABULAR FX Left 09/04/2017 @OPEN TREATMENT, ACETABULAR FX (WRVU 25.41) performed by Amy Lance MD at [facility] Allergies: Allergies Allergen Reactions [...] 06/14/2024 4:02 AM) Result Value WORKSTATION ID [id number] Impression Low lung volumes with crowding of bronchovascular markings without radiographically evident acute cardiopulmonary process. Thank you for letting us participate in the care of this patient. If you are a health care provider and have any questions regarding this report, please contact the number below. For patients who have questions please contact the health farm or ranch animal caretaker that requested your imaging first. Electronically signed by: Beverley Valencia MD, [facility] ([phone]), at 06/14/2024 4:32 AM Request For 2nd Read CT Head (Exam End: 06/14/2024 9:46 AM) Result Value WORKSTATION ID [id number] Impression Hypoattenuating, likely cystic mass appears to [...] who have questions please contact the health farm or ranch animal caretaker that requested your imaging first. Electronically signed by: Galen Balderas [facility] ([phone]), at 06/14/2024 10:41 AM MRI Brain wwo Contrast (Generic) (Exam End: 2024 4:20 PM) Result Value WORKSTATION ID [id number] Impression Homogeneously enhancing 3.5 cm mass along [...] who have questions please contact the health farm or ranch animal caretaker that requested your imaging first. Electronically signed by: Raudel eHredia MD, [facility] ([phone]), at 2024 4:46 PM Assessment: Abram Burgos [...] altered mental status prior to presentation is training representative of ongoing seizures at home. This [...] once nightly to twice daily by his mcc. He may need titration of medicationsto promote better quality of life. Recommendations: -Zonisamide level -Can continue zonisamide 400 mg nightly -Can consider psychiatry involvement for behaviors Neurology will continue to follow. Patient seen with Dr. Braxton. Alina Holland MD Neurology, PGY-3 Consult Neurology Service #[id number] 06/16/2024 ATTENDING NOTE: I reviewed the pertinent [...] record, and Guardian (Spoke with Bettina-Chloe) This REHABILITATOR Introduced self/reviewed role; services accepted. Admitted From: Transfer from another hospital Location: Reason for Hospitalization: Per sister, patient had seizure activity for the first time in 9 years.EMS called. Past medical History: No past medical history on file. Hospitalizations Within the Past 30 Days: no previous admission in last 30 days Current Decision-Making Capacity: Guardian Name(s): Bettina Burgos Contact Information: [phone] (cell) Proxy Activated: Yes Paperwork on file?: [...] home: other (see comments) (Lives in a mcc.). Current LivingArrangements: mcc. Accessibility Concerns:Easy access to his surroundings. Fully [...] homeless or living in a long-term (including now)?: No In the past 12 [...] at times) Home Address confirmed as: [address] [facility] [address] Att[address]: [address] [facility] [address] Social & Family Supports: All names listed below confirmed with patient as current and correct Extended Emergency Contact Information Primary Emergency Contact: Bettina Burgos Address: [address] [place] [id number] [place] [address] Relation: Guardianship Secondary Emergency Contact: [facility] Relation: Other Current Care Provided by: [facility] Provides Primary Care For: no one, unable/limited ability to care for self Caregiver if needed: other (see comments) (half-way) Quality of Family relationships: supportive, involved Community Resources being provided currently: [facility] Behavioral Health History: Per chart review, Pt [...] N/A ; Prescription Coverage: Yes Preferred Pharmacy: [facility] Home Delivery - [facility] [address] [facility] [address] [facility] [address] [facility] [address] [facility] [address] [facility] [address] [facility] [place] [address] [address] [place] Status: Patient is a : No Primary Care Provider confirmed: Ren Vaz MD [phone] Patient/Caregiver Goals of Treatment: Anticipating return to mcc when medically ready Potential Needs for Transition of Care: none Agency Referrals: [facility] Transportation: no concerns Transportation Anticipated: agency Concerns to be Addressed: other (see comments) (Needing transportation via [facility] at discharge) Assessment: Patient is admitted to service for Hyponatremia Pt is a 34 year dependent male, living in a mcc. Pt guardian is his sister, Bettina. Bettina is very involved and supportive. Guardianship paperwork is on file. Pt is cared for by his group homestaff while his finances remain in the care of his guardian. Re[facility] out [facility]. The [facility] will reach out with any information regarding this. Plan going forward: Pending hospital course Care Management team will continue to follow and assist with discharge planing and coordination of care as indicated. JAMSHID Ramirez Medicine Pager [phone] * Consult Note - Braxton, Kellen H, MD - 2024 6:02 AM EST Neurology [...] been altered recently. This afternoon at his mcc he had a two minutewitnessed tonic clonic [...] nightly to twice daily dosing at his mcc, which she had not been on before. 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 Sister reports that he has had low sodium in the past, she believes in the 120s or lower, but has not triggered seizures in the past. Patient has previously been seen at [facility] in 2014. His deficits at that time included left hemiparesis, cortical blindness, urine incontinence, dysarthria and gait disorder. 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 According to [facility] documentation, he had a spell at his mcc that was concerning for seizure one month prior to his visit. BG at the time was in the 40s and he was started on Keppra in addition to Zonegran. [facility] neurologist planned for discontinuation of Keppra at [...] QAM Minerva Small PA 20 mg at 06/14/24 0924 levothyroxine (Synthroid) tablet 200 mcg 200 [...] Surgical History: Procedure Laterality Date PRO OPEN JOURNEYMAN POWER PLANT OPERATOR FIX ACETABULAR FX Left 09/04/2017 @OPEN TREATMENT, ACETABULAR FX (WRVU 25.41) performed by Amy Lance MD at [facility] Allergies: Allergies Allergen Reactions [...] 06/14/2024 4:02 AM) Result Value WORKSTATION ID [id number] Impression Low lung volumes with crowding of bronchovascular markings without radiographically evident acute cardiopulmonary process. Thank you for letting us participate in the care of this patient. If you are a health care provider and have any questions regarding this report, please contact the number below. For patients who have questions please contact the health farm or ranch animal caretaker that requested your imaging first. Electronically signed by: Beverley Valencia MD, [facility] ([phone]), at 06/14/2024 4:32 AM Request For 2nd Read CT Head (Exam End: 06/14/2024 9:46 AM) Result Value WORKSTATION ID [id number] Impression Hypoattenuating, likely cystic mass appears to [...] who have questions please contact the health farm or ranch animal caretaker that requested your imaging first. Electronically signed by: Galen Balderas [facility] ([phone]), at 06/14/2024 10:41 AM Assessment: Abram Burgos is a 34 y.o. [...] Kirkpatrick MD - 06/14/2024 11:59 AM EST [facility] NEUROSURGERY CONSULT NOTE ID: Abram Burgos [...] right middle fossa. He lives at a mcc. This past weekend, he was in his normal state of health when he had a witnessed 2 minute seizure, reportedly with generalized stiffening. He was brought to [facility], where he was found to have Na of 121. He had a tongue laceration. In the ED there he had an additional witnessed seizure. He was transferred to the [facility] for a higher level of care [...] underwent tumor resection with Dr. Álvarez at [facility]. This was complicated by arterial bleeding with [...] Surgical History: Procedure Laterality Date PRO OPEN JOURNEYMAN POWER PLANT OPERATOR FIX ACETABULAR FX Left 09/04/2017 @OPEN TREATMENT, ACETABULAR FX (WRVU 25.41) performed by Amy Lance MD at [facility] MEDICATIONS: No current facility-administered [...] file Social History Narrative [place] [facility] moved [place] 11/[place]/2014. Social Determinants of Health [...] neurosurgery attending. No future appointments. Neurosurgery Pager: [phone] Gonzalez Kirkpatrick MD Neurosurgery PGY-1 06/14/2024 6:44 [...] Surgical History: Procedure Laterality Date PRO OPEN JOURNEYMAN POWER PLANT OPERATOR FIX ACETABULAR FX Left 09/04/2017 @OPEN TREATMENT, ACETABULAR FX (WRVU 25.41) performed by Amy Lance MD at [facility] Social History: Patient lives in a m[facility]. Home Setup: accessible DME: none Baseline ADL/Mobility: [...] Ambulation: [facility] x2 handhold for ofybs-rsal-mgtd transfer EOB<>commode Stand to sit: CGA Sit [...] be determined Anticipated Discharge Dispostion: adult foster care/mcc (pending on progress) Other Recommendations: Open shades [...] Discharge planning. Total Minutes, Occupational Therapy: 16 ([id number] (evaluation)) 2017 OT Evaluation Code Rationale: Diagnosis [...] and measurable assessment of functional outcome. Pager: [phone] Dinorah Navas OTR/L 06/14/2024 Occupational Therapy Rehabilitation [...] follows with Dr. Zaidi of Endocrinology at [facility]. Recently saw a covering provider, Day Littlejohn in March 2024. He currently resides in a mcc, [facility] where nurses and medical assistants provide care, [...] Surgical History: Procedure Laterality Date PRO OPEN JOURNEYMAN POWER PLANT OPERATOR FIX ACETABULAR FX Left 09/04/2017 @OPEN TREATMENT, ACETABULAR FX (WRVU 25.41) performed by Amy Lance MD at [facility] No family history on [...] file Social History Narrative Lives at the [facility], moved in 11/07/2014. Social Determinants of Health [...] access to additional DDAVP dosing at his mcc. Pos sibility of him having access to additional water/fluid intake over the last few weeks. Patients sister and legal guardian said that this is possible given there is often respiratory care technician turnover and not everyone is up to [...] with Dr. Morris. Crista Gill MD. PGY4 [facility] Endocrinology Pager #[phone] I have seen the patient and reviewed [...] is effective and safe Shola Morris MD Machine Tank Operatorregional engagement consultant Endocrinology Section [facility] * Consult Note - Kellen Braxton MD [...] been altered recently. This afternoon at his [facility] he had a two minutewitnessed tonic clonic [...] nightly to twice daily dosing at his [facility], which she had not been on before. 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 Sister reports that he has had low sodium in the past, she believes in the 120s or lower, but has not triggered seizures in the past. Patient has previously been seen at [facility] in 2014. His deficits at that time included left hemiparesis, cortical blindness, urine incontinence, dysarthria and gait disorder. 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 According to [facility] documentation, he had a spell at his [facility] that was concerning for seizure one month prior to his visit. BG at the time was in the 40s and he was started on Keppra in addition to Zonegran. [facility] neurologist planned for discontinuation of Keppra at [...] Surgical History: Procedure Laterality Date PRO OPEN JOURNEYMAN POWER PLANT OPERATOR FIX ACETABULAR FX Left 09/04/2017 @OPEN TREATMENT, ACETABULAR FX (WRVU 25.41) performed by Amy Lance MD at [facility] OR Allergies: Allergies Allergen Reactions [...] Flexor digitorum profundus Digit II-V flexion / bulb sorter 5 5 L2-3 Iliopsoas Hip flexion [...] 06/14/2024 4:02 AM) Result Value WORKSTATION ID [id number] Impression Low lung volumes with crowding of bronchovascular markings without radiographically evident acute cardiopulmonary process. Thank you for letting us participate in the care of this patient. If you are a health care provider and have any questions regarding this report, please contact the number below. For patients who have questions please contact the health farm or ranch animal caretaker that requested your imaging first. Electronically signed by: Beverley Valencia MD, [facility] ([phone]), at 06/14/2024 4:32 AM Assessment: Abram Burgos [...] similar to the one resected in [address]. [address] CV EEG to further evaluate [...] MD Neurology, PGY-3 Consult Neurology Service #[id number] 06/14/2024 ATTENDING NOTE: I reviewed the pertinent [...] 2024 4:20 PM EST Unlisted Mri Procedure (14514) 2024 2:56 PM EST Please evaluate lesion [...] 06/14/2024 9:46 AM EST URINALYSIS BEAKER MICROSCOPIC ([facility]) HSEEBA 06/14/2024 8:06 AM EST _URINALYSIS WITH MICRSOCOPIC [...] Aminotransferase 47(H) <=39 unit/L 06/21/2024 1:30 AM EST [facility] Alanine Aminotransferase 64(H) 0 - 55 unit/L 06/21/2024 1:30 AM [facility] Alkaline Phosphatase 141(H) 40 - 130 unit/L 06/21/2024 1:30 AM [facility] Bilirubin, Total <0.2 <=1.3 mg/dL 06/21/2024 1:30 AM EST [facility] Bilirubin, Direct <0.2 0.0 - 0.3 mg/dL 06/21/2024 1:30 AM EST [facility] Protein, Total 7.1 6.1 - 8.0 g/dL 06/21/2024 1:30 AM [facility] Blood VENOUS BLOOD SPECIMEN / Unknown Venipuncture / Unknown 06/21/2024 12:50 AM EST 06/21/2024 12:56 AM EST Martinez Reynolds MD CHEMISTRY ORDERABLES [facility] [place] [address] * (ABNORMAL) CBC (with Diff) (06/21/2024 12:50 AM EST) [facility] Signature White Blood Cell 7.52 4.00 - 9.50 x10(3)/mc L 06/21/2024 1:09 AM [facility] Red Blood Cell 5.33 4.58 - 5.54 x10(6)/mc L 06/21/2024 1:09 AM [facility] Hemoglobin 12.9(L) 13.7 - 16.5 g/dL 06/21/2024 1:09 AM [facility] Hematocrit 39.9(L) 40.5 - 48.5 % 06/21/2024 1:09 AM [facility] Mean Cell Volume 74.9(L) 82.9 - 93.1 fL 06/21/2024 1:09 AM [facility] Mean Cell Hemoglobin 24.2(L) 27.5 - 32.1 pg 06/21/2024 1:09 AM [facility] Mean Cell Hemoglobin Concentration 32.3 32.0 - 35.7 g/dL 06/21/2024 1:09 AM [facility] Platelet 268 145 - 357 x10(3)/mc L 06/21/2024 1:09 AM [facility] Mean Platelet Volume 9.1 7.6 - 12.9 fL 06/21/2024 1:09 AM [facility] RDW Standard Deviation 39.8 36.0 - 45.0 fL 06/21/2024 1:09 AM [facility] RDW coefficient of variation 15.0(H) 11.4 - 13.8 % 06/21/2024 1:09 AM [facility] NRBC% auto 0.0 % 06/21/2024 1:09 AM [facility] NRBC Absolute <0.01 <0.01 x10(3)/mc L 06/21/2024 1:09 AM [facility] Neutrophil % 63.6 % 06/21/2024 1:09 AM [facility] Neutrophil Absolute (ANC) - Automated 4.78 1.70 - 6.10 x10(3)/mc L 06/21/2024 1:09 AM [facility] Lymph % 23.7 % 06/21/2024 1:09 AM [facility] Lymph Absolute 1.78 0.90 - 3.20 x10(3)/mc L 06/21/2024 1:09 AM [facility] Monocyte % 9.8 % 06/21/2024 1:09 AM [facility] Monocyte Absolute 0.74 0.30 - 0.90 x10(3)/mc L 06/21/2024 1:09 AM [facility] Eos % 2.0 % 06/21/2024 1:09 AM [facility] Eos Absolute 0.15 0.00 - 0.40 x10(3)/mc L 06/21/2024 1:09 AM [facility] Basophil % 0.4 % 06/21/2024 1:09 AM [facility] Baso Absolute <0.04 0.00 - 0.10 x10(3)/mc L 06/21/2024 1:09 AM [facility] Immature Gran % 0.5 % 1:09 AM [facility] Immature Gran Absolute 0.04 0.00 - 0.04 x10(3)/mc L 06/21/2024 1:09 AM [facility] Blood VENOUS BLOOD SPECIMEN / Unknown Venipuncture / Unknown 06/21/2024 12:50 AM EST 06/21/2024 12:56 AM EST Martinez Reynolds MD HEMATOLOGY ORDERABLE S [facility] [place] [address] * Phosphorus (06/21/2024 12:50 AM EST) Pathologist [facility] Phosphorus 3.2 2.5 - 4.5 mg/dL 06/21/2024 1:30 AM [facility] Blood VENOUS BLOOD SPECIMEN / Unknown Venipuncture / Unknown 06/21/2024 12:50 AM EST 06/21/2024 12:56 AM EST Martinez Reynolds MD CHEMISTRY ORDERABLES Performing Organization Address City/[facility]/ZIP Co de Phone Number [facility] [place] [address] * Magnesium (06/21/2024 12:50 AM EST) [facility] Magnesium 0.81 0.69 - 1.07 mMol/L 06/21/2024 1:30 AM [facility] Blood VENOUS BLOOD SPECIMEN / Unknown Venipuncture / Unknown 06/21/2024 12:50 AM EST 06/21/2024 12:56 AM EST Martinez Reynolds MD CHEMISTRY ORDERABLES Performing Organization Address City/[facility]/ZIP Co de Phone Number [facility] [place] [address] * (ABNORMAL) Basic Metabolic Panel (06/21/2024 12:50 AM EST) [facility] Glucose 126 65 - 199 mg/dL 06/21/2024 1:44 AM [facility] Comment:Glucose Concentratio n >=200 mg/dL plus symptoms is consistent with Diabetes Mellitus. Blood Urea Nitrogen 12 10 - 20 mg/dL 06/21/2024 1:44 AM [facility] Creatinine 0.82 0.80 - 1.50 mg/dL 06/21/2024 1:44 AM [facility] Sodium 141 135 - 145 mMol/L 06/21/2024 1:44 AM [facility] Potassium 4.3 3.5 - 5.0 mMol/L 06/21/2024 1:44 AM [facility] Chloride 111(H) 98 - 107 mMol/L 06/21/2024 1:44 AM [facility] Carbon Dioxide 18(L) 22 - 31 mMol/L 06/21/2024 1:44 AM [facility] Anion Gap 12 5 - 15 mMol/L 06/21/2024 1:44 AM [facility] Calcium 9.0 8.5 - 10.5 mg/dL 06/21/2024 1:44 AM [facility] Est Glomerular Filtration Rate - Male 118 mL/min/1. 73 m?? 06/21/2024 1:44 AM [facility] Comment: This patient's estimated GFR [...] MD CHEMISTRY ORDERABLES [facility] [place] [address] * (ABNORMAL) Hepatic Function Panel (06/20/2024 12:53 AM EST) Albumin 4.4 3.2 - 5.2 g/dL 06/20/2024 1:42 AM [facility] Aspartate Aminotransferase 65(H) <=39 unit/L 06/20/2024 1:42 AM [facility] Alanine Aminotransferase 80(H) 0 - 55 unit/L 06/20/2024 1:42 AM [facility] Alkaline Phosphatase 128 40 - 130 unit/L 06/20/2024 1:42 AM [facility] Bilirubin, Total <0.2 <=1.3 mg/dL 06/20/2024 1:42 AM [facility] Bilirubin, Direct <0.2 0.0 - 0.3 mg/dL 06/20/2024 1:42 AM [facility] Protein, Total 7.4 6.1 - 8.0 g/dL 06/20/2024 1:42 AM [facility] Blood VENOUS BLOOD SPECIMEN / Unknown Venipuncture / Unknown 06/20/2024 12:53 AM EST 06/20/2024 1:11 AM EST Martinez Reynolds MD CHEMISTRY ORDERABLES Performing Organization Address City/State/[facility] Co de Phone Number [facility] [place] [phone] * (ABNORMAL) CBC (with Diff) (06/20/2024 12:53 AM EST) White Blood Cell 5.59 4.00 - 9.50 x10(3)/mc L 06/20/2024 1:23 AM [facility] Red Blood Cell 5.50 4.58 - 5.54 x10(6)/mc L 06/20/2024 1:23 AM [facility] Hemoglobin 13.5(L) 13.7 - 16.5 g/dL 06/20/2024 1:23 AM [facility] Hematocrit 40.9 40.5 - 48.5 % 06/20/2024 1:23 AM [facility] Mean Cell Volume 74.4(L) 82.9 - 93.1 fL 06/20/2024 1:23 AM [facility] Mean Cell Hemoglobin 24.5(L) 27.5 - 32.1 pg 06/20/2024 1:23 AM [facility] Mean Cell Hemoglobin Concentration 33.0 32.0 - 35.7 g/dL 06/20/2024 1:23 AM [facility] Platelet 303 145 - 357 x10(3)/mc L 06/20/2024 1:23 AM [facility] Mean Platelet Volume 8.9 7.6 - 12.9 fL 06/20/2024 1:23 AM [facility] RDW Standard Deviation 39.6 36.0 - 45.0 fL 06/20/2024 1:23 AM [facility] RDW coefficient of variation 14.7(H) 11.4 - 13.8 % 06/20/2024 1:23 AM [facility] NRBC% auto 0.0 % 06/20/2024 1:23 AM [facility] NRBC Absolute <0.01 <0.01 x10(3)/mc L 06/20/2024 1:23 AM [facility] Neutrophil % 54.2 % 06/20/2024 1:23 AM [facility] Neutrophil Absolute (ANC) - Automated 3.03 1.70 - 6.10 x10(3)/mc L 06/20/2024 1:23 AM [facility] Lymph % 31.1 % 06/20/2024 1:23 AM [facility] Lymph Absolute 1.74 0.90 - 3.20 x10(3)/mc L 06/20/2024 1:23 AM [facility] Monocyte % 11.8 % 06/20/2024 1:23 AM [facility] Monocyte Absolute 0.66 0.30 - 0.90 x10(3)/mc L 06/20/2024 1:23 AM [facility] Eos % 2.0 % 06/20/2024 1:23 AM [facility] Eos Absolute 0.11 0.00 - 0.40 x10(3)/mc L 06/20/2024 1:23 AM [facility] Basophil % 0.4 % 06/20/2024 1:23 AM EST [facility] Baso Absolute <0.04 0.00 - 0.10 x10(3)/mc L 06/20/2024 1:23 AM EST [facility] Immature Gran % 0.5 % 1:23 AM EST [facility] Immature Gran Absolute <0.04 0.00 - 0.04 x10(3)/mc L 06/20/2024 1:23 AM EST [facility] Blood VENOUS BLOOD SPECIMEN / Unknown Venipuncture / Unknown 06/20/2024 12:53 AM EST 06/20/2024 1:12 AM EST Martinez Reynolds MD HEMATOLOGY ORDERABLE S [facility] [place] [address] * Phosphorus (06/20/2024 12:53 AM EST) Phosphorus 3.7 2.5 - 4.5 mg/dL 06/20/2024 1:42 AM EST [facility] Blood VENOUS BLOOD SPECIMEN / Unknown Venipuncture / Unknown 06/20/2024 12:53 AM EST 06/20/2024 1:11 AM EST Martinez Reynolds MD CHEMISTRY ORDERABLES [facility] [place] [address] * Magnesium (06/20/2024 12:53 AM EST) Magnesium 0.76 0.69 - 1.07 mMol/L 06/20/2024 1:42 AM EST [facility] Blood VENOUS BLOOD SPECIMEN / Unknown Venipuncture / Unknown 06/20/2024 12:53 AM EST 06/20/2024 1:11 AM EST Martinez Reynolds MD CHEMISTRY ORDERABLES [facility] [place] [address] * (ABNORMAL) Basic Metabolic Panel (06/20/2024 12:53 AM EST) Glucose 95 65 - 199 mg/dL 06/20/2024 1:42 AM [facility] Comment:Glucose Concentratio n >=200 mg/dL plus symptoms is consistent with Diabetes Mellitus. Blood Urea Nitrogen 10 10 - 20 mg/dL 06/20/2024 1:42 AM [facility] Creatinine 0.75(L) 0.80 - 1.50 mg/dL 06/20/2024 1:42 AM [facility] Sodium 137 135 - 145 mMol/L 06/20/2024 1:42 AM [facility] Potassium 3.7 3.5 - 5.0 mMol/L 06/20/2024 1:42 AM [facility] Chloride 102 98 - 107 mMol/L 06/20/2024 1:42 AM [facility] Carbon Dioxide 20(L) 22 - 31 mMol/L 06/20/2024 1:42 AM [facility] Anion Gap 15 5 - 15 mMol/L 06/20/2024 1:42 AM [facility] Calcium 9.1 8.5 - 10.5 mg/dL 06/20/2024 1:42 AM [facility] Est Glomerular Filtration Rate - Male 121 mL/min/1. 73 m?? 06/20/2024 1:42 AM [facility] Comment: This patient's estimated GFR [...] Reynolds MD CHEMISTRY ORDERABLES Performing Organization Address City/[facility]/ZIP Co de Phone Number [facility] [place] [address] * (ABNORMAL) Hepatic Function Panel (06/19/2024 4:10 AM EST) Albumin 4.2 3.2 - 5.2 g/dL 06/19/2024 4:51 AM [facility] Aspartate Aminotransferase 57(H) <=39 unit/L 06/19/2024 4:51 AM [facility] Alanine Aminotransferase 76(H) 0 - 55 unit/L 06/19/2024 4:51 AM [facility] Alkaline Phosphatase 133(H) 40 - 130 unit/L 06/19/2024 4:51 AM [facility] Bilirubin, Total 0.2 <=1.3 mg/dL 06/19/2024 4:51 AM [facility] Bilirubin, Direct <0.2 0.0 - 0.3 mg/dL 06/19/2024 4:51 AM [facility] Protein, Total 7.5 6.1 - 8.0 g/dL 06/19/2024 4:51 AM [facility] Blood VENOUS BLOOD SPECIMEN / Unknown Venipuncture / Unknown 06/19/2024 4:10 AM EST 06/19/2024 4:21 AM EST Martinez Reynolds MD CHEMISTRY ORDERABLES Performing Organization Address City/[facility]/ZIP Co de Phone Number [facility] [place] [address] * (ABNORMAL) CBC (with Diff) (06/19/2024 4:10 AM [facility]) White Blood Cell 6.86 4.00 - 9.50 x10(3)/mc L 06/19/2024 4:28 AM [facility] Red Blood Cell 5.60(H) 4.58 - 5.54 x10(6)/mc L 06/19/2024 4:28 AM [facility] Hemoglobin 13.8 13.7 - 16.5 g/dL 06/19/2024 4:28 AM [facility] Hematocrit 41.6 40.5 - 48.5 % 06/19/2024 4:28 AM [facility] Mean Cell Volume 74.3(L) 82.9 - 93.1 fL 06/19/2024 4:28 AM [facility] Mean Cell Hemoglobin 24.6(L) 27.5 - 32.1 pg 06/19/2024 4:28 AM [facility] Mean Cell Hemoglobin Concentration 33.2 32.0 - 35.7 g/dL 06/19/2024 4:28 AM [facility] Platelet 297 145 - 357 x10(3)/mc L 06/19/2024 4:28 AM [facility] Mean Platelet Volume 9.1 7.6 - 12.9 fL 06/19/2024 4:28 AM [facility] RDW Standard Deviation 39.1 36.0 - 45.0 fL 06/19/2024 4:28 AM [facility] RDW coefficient of variation 14.8(H) 11.4 - 13.8 % 06/19/2024 4:28 AM [facility] NRBC% auto 0.0 % 06/19/2024 4:28 AM [facility] NRBC Absolute <0.01 <0.01 x10(3)/mc L 06/19/2024 4:28 AM [facility] Neutrophil % 64.0 % 06/19/2024 4:28 AM [facility] Neutrophil Absolute (ANC) - Automated 4.39 1.70 - 6.10 x10(3)/mc L 06/19/2024 4:28 AM [facility] Lymph % 28.7 % 06/19/2024 4:28 AM [facility] Lymph Absolute 1.97 0.90 - 3.20 x10(3)/mc L 06/19/2024 4:28 AM [facility] Monocyte % 4.1 % 06/19/2024 4:28 AM [facility] Monocyte Absolute 0.28(L) 0.30 - 0.90 x10(3)/mc L 06/19/2024 4:28 AM [facility] Eos % 2.2 % 06/19/2024 4:28 AM [facility] Eos Absolute 0.15 0.00 - 0.40 x10(3)/mc L 06/19/2024 4:28 AM [facility] Basophil % 0.4 % 06/19/2024 4:28 AM [facility] Baso Absolute <0.04 0.00 - 0.10 x10(3)/mc L 06/19/2024 4:28 AM [facility] Immature Gran % 0.6 % 4:28 AM [facility] Immature Gran Absolute 0.04 0.00 - 0.04 x10(3)/mc L 06/19/2024 4:28 AM [facility] Blood VENOUS BLOOD SPECIMEN / Unknown Venipuncture / Unknown 06/19/2024 4:10 AM EST 06/19/2024 4:21 AM EST Martinez Reynolds MD HEMATOLOGY ORDERABLE S [facility] [place] [address] * (ABNORMAL) Phosphorus (06/19/2024 4:10 AM EST) Phosphorus 5.0(H) 2.5 - 4.5 mg/dL 06/19/2024 4:51 AM EST [facility] Blood VENOUS BLOOD SPECIMEN / Unknown Venipuncture / Unknown 06/19/2024 4:10 AM EST 06/19/2024 4:21 AM EST Martinez Reynolds MD CHEMISTRY ORDERABLES Performing Organization Address [facility] Co de Phone Number [facility] [place] [address] * Magnesium (06/19/2024 4:10 AM EST) [facility] Magnesium 0.74 0.69 - 1.07 mMol/L 06/19/2024 4:51 AM [facility] Blood VENOUS BLOOD SPECIMEN / Unknown Venipuncture / Unknown 06/19/2024 4:10 AM EST 06/19/2024 4:21 AM EST Martinez Reynolds MD CHEMISTRY ORDERABLES Performing Organization Address City/[facility] Co de Phone Number [facility] [place] [address] * (ABNORMAL) Basic Metabolic Panel (06/19/2024 4:10 AM EST) [facility] Glucose 112 65 - 199 mg/dL 06/19/2024 4:51 AM [facility] Comment:Glucose Concentratio n >=200 mg/dL plus symptoms is consistent with Diabetes Mellitus. Blood Urea Nitrogen 19 10 - 20 mg/dL 06/19/2024 4:51 AM [facility] Creatinine 0.86 0.80 - 1.50 mg/dL 06/19/2024 4:51 AM [facility] Sodium 135 135 - 145 mMol/L 06/19/2024 4:51 AM [facility] Potassium 3.8 3.5 - 5.0 mMol/L 06/19/2024 4:51 AM [facility] Chloride 97(L) 98 - 107 mMol/L 06/19/2024 4:51 AM EST [facility] Carbon Dioxide 25 22 - 31 mMol/L 06/19/2024 4:51 AM [facility] Anion Gap 13 5 - 15 mMol/L 06/19/2024 4:51 AM EST [facility] Calcium 9.4 8.5 - 10.5 mg/dL 06/19/2024 4:51 AM EST [facility] Est Glomerular Filtration Rate - Male 117 mL/min/1. 73 m?? 06/19/2024 4:51 AM EST [facility] Comment: [...] Reynolds MD CHEMISTRY ORDERABLES Performing Organization Address City/State/[facility] Co de Phone Number [facility] [place] [address] * (ABNORMAL) Urinalysis with reflex Culture (06/19/2024 3:22 AM EST) Glucose, Urine Dipstick Negative Negative 06/19/2024 3:37 AM EST [facility] Protein, Urine Dipstick Negative Negative 06/19/2024 3:37 AM EST [facility] Bilirubin, Urine Dipstick Negative Negative 06/19/2024 3:37 AM [facility] Comment:Clinical correlation required for positive Urine Bilirubin results as false positive may occur with some drugs and drug related products. If a false positive is suspected a serum total bilirubin should be considered if clinically indicated. Urobilinogen, Urine Dipstick Normal Normal, 0.2 mg/dL, 1.0 mg/dL 06/19/2024 3:37 AM [facility] pH, Urine (dipstick) 6.5 5.0 - 8.0 06/19/2024 3:37 AM [facility] Blood, Urine Dipstick Negative Negative 06/19/2024 3:37 AM [facility] Ketone, Urine Dipstick Negative Negative 06/19/2024 3:37 AM [facility] Nitrite, Urine Dipstick Negative Negative 06/19/2024 3:37 AM [facility] Leukocytes, Urine Dipstick Negative Negative 06/19/2024 3:37 AM [facility] Specific [place] Urine Automated 1.021 1.005 - 1.030 06/19/2024 3:37 AM [facility] Appearance, Urine Dipstick Cloudy(A) Clear 06/19/2024 3:37 AM [facility] Color, Urine Dipstick Yellow Yellow, Dark Yellow 06/19/2024 3:37 AM [facility] CULTURE ADDED? 06/19/2024 3:37 AM [facility] Urine URINE SPECIMEN OBTAINED VIA STRAIGHT CATHETER / Unknown Non Blood Collection / Unknown 06/19/2024 3:22 AM EST 06/19/2024 3:31 AM EST Pamela Johnson [place] [address] * XR Chest One View (06/18/2024 7:55 PM EST) WORKSTATION ID [id number] DH RAD Anatomical Region Laterality Modality Chest [...] who have questions please contact the health farm or ranch animal caretaker that requested your imaging first. ? Electronically signed by: Tobias Sotomayor MD, [facility] ([phone]), at 06/18/2024 8:09 PM Narrative 06/18/2024 8:09 [...] patients who have questions please contactthe health farm or ranch animal caretaker that requested your imaging first. Electronically signed by: Tobias Sotomayor MD, [facility]([phone]), at 06/18/2024 8:09 PM Pamela E Alex DO IMG DX ORDERABLES * Blood culture (06/18/2024 7:00 PM EST) Blood Culture No growth at 120 hours 06/23/2024 8:00 PM EST [facility] Blood VENOUS BLOOD SPECIMEN / Unknown Venipuncture / Unknown 06/18/2024 7:00 PM EST 06/18/2024 7:05 PM EST Pamela E Alex DO MICROBIOLOGY - BL OOD ORDERABLES Performing Organization Address [facility] Co de Phone Number [facility] [place] [address] * (ABNORMAL) Blood culture (06/18/2024 7:00 PM EST) Blood Culture Coagulase Negative Staphylococcus species(Critical) VITEK 2 METHOD 06/23/2024 6:52 AM [facility] [facility] Comment: detected by PCR Interpretation of the importance of skin akbar such as Coag Negative Staph, Viridans Strep, Corynebacteria and other Gram Positive orgs from a single Blood Culture set requires clinical correlation. Gram Stain Anaerobic Bottle: Gram positive cocci in clusters(Critical ) 06/23/2024 6:52 AM EST [facility] Comment:This is an appended report. These results have been appended to a previously preliminary verified report. Blood VENOUS BLOOD SPECIMEN / Unknown Venipuncture / Unknown 06/18/2024 7:00 PM EST 06/18/2024 7:05 PM EST Pamela E Alex DO MICROBIOLOGY - BL OOD ORDERABLES Performing Organization Address [facility]/ZIP Co de Phone Number [facility] [place] [address] * POC, GLUCOSE (06/18/2024 6:55 PM EST) Glucometer, POC 100 65 - 199 mg/dL 06/18/2024 6:56 PM EST [facility] Comment:Supplemental ranges: <140 mg/dL before meals <180 mg/dL all other times of the day. Blood CAPILLARY BLOOD / Unknown 06/18/2024 6:55 PM EST 06/18/2024 6:56 PM EST Pamela Johnson DO POINT OF CARE TABATHA T ORDERABLES [facility] [place] [address] * EKG 12 Lead (06/18/2024 1:41 PM EST) [facility] Ventricular rate 47 BPM MUSE SYSTEM Atrial Rate 47 BPM MUSE SYSTEM P-R Interval 186 ms MUSE SYSTEM QRS Duration 114 ms MUSE SYSTEM Q-T Interval 558 ms MUSE SYSTEM QTC Calculated (Bezet) 493 ms MUSE SYSTEM Calculated P [place] 11 degrees MUSE SYSTEM Calculated R [place] 45 degrees MUSE SYSTEM Calculated T [place] 45 degrees MUSE SYSTEM INTERPRETATION Sinus bradycardia [...] 12:22 PM EST 06/18/2024 12:35 PM EST Pameladillon Johnson DO CHEMISTRY ORDERAB LES [facility] [place] [address] * CT Head wo Contrast (Generic) (06/18/2024 11:18 AM EST) WORKSTATION ID [id number] RAD Anatomical Region Laterality Modality Head Computed [...] who have questions please contact the health farm or ranch animal caretaker that requested your imaging first. ? [...] patients who have questions please contactthe health farm or ranch animal caretaker that requested your imaging first. Electronically signed by: Jimbo Casillas MD, [facility]([phone]), at 06/18/2024 11:37 AM Pamela Johnson DO IMG CT ORDERABLES * (ABNORMAL) Hepatic Function Panel (06/18/2024 1:26 AM EST) Albumin 4.2 3.2 - 5.2 g/dL 06/18/2024 2:02 AM [facility] Aspartate Aminotransferase 52(H) <=39 unit/L 06/18/2024 2:02 AM [facility] Alanine Aminotransferase 61(H) 0 - 55 unit/L 06/18/2024 2:02 AM [facility] Alkaline Phosphatase 118 40 - 130 unit/L 06/18/2024 2:02 AM [facility] Bilirubin, Total 0.3 <=1.3 mg/dL 06/18/2024 2:02 AM [facility] Bilirubin, Direct <0.2 0.0 - 0.3 mg/dL 06/18/2024 2:02 AM [facility] Protein, Total 6.9 6.1 - 8.0 g/dL 06/18/2024 2:02 AM [facility] Blood VENOUS BLOOD SPECIMEN / Unknown Venipuncture / Unknown 06/18/2024 1:26 AM EST 06/18/2024 1:34 AM EST Martinez Reynolds MD CHEMISTRY ORDERABLES Performing Organization Address City/State/[facility] Co de Phone Number [facility] [place] [address] * (ABNORMAL) CBC (with Diff) (06/18/2024 1:26 AM EST) White Blood Cell 9.78(H) 4.00 - 9.50 x10(3)/mc L 06/18/2024 1:38 AM [facility] Red Blood Cell 5.02 4.58 - 5.54 x10(6)/mc L 06/18/2024 1:38 AM [facility] Hemoglobin 12.4(L) 13.7 - 16.5 g/dL 06/18/2024 1:38 AM [facility] Hematocrit 37.2(L) 40.5 - 48.5 % 06/18/2024 1:38 AM [facility] Mean Cell Volume 74.1(L) 82.9 - 93.1 fL 06/18/2024 1:38 AM [facility] Mean Cell Hemoglobin 24.7(L) 27.5 - 32.1 pg 06/18/2024 1:38 AM [facility] Mean Cell Hemoglobin Concentration 33.3 32.0 - 35.7 g/dL 06/18/2024 1:38 AM [facility] Platelet 262 145 - 357 x10(3)/mc L 06/18/2024 1:38 AM [facility] Mean Platelet Volume 9.2 7.6 - 12.9 fL 06/18/2024 1:38 AM [facility] RDW Standard Deviation 40.8 36.0 - 45.0 fL 06/18/2024 1:38 AM [facility] RDW coefficient of variation 15.3(H) 11.4 - 13.8 % 06/18/2024 1:38 AM [facility] NRBC% auto 0.0 % 06/18/2024 1:38 AM [facility] NRBC Absolute <0.01 <0.01 x10(3)/mc L 06/18/2024 1:38 AM [facility] Neutrophil % 72.8 % 06/18/2024 1:38 AM [facility] Neutrophil Absolute (ANC) - Automated 7.12(H) 1.70 - 6.10 x10(3)/mc L 06/18/2024 1:38 AM [facility] Lymph % 16.9 % 06/18/2024 1:38 AM [facility] Lymph Absolute 1.65 0.90 - 3.20 x10(3)/mc L 06/18/2024 1:38 AM [facility] Monocyte % 8.7 % 06/18/2024 1:38 AM [facility] Monocyte Absolute 0.85 0.30 - 0.90 x10(3)/mc L 06/18/2024 1:38 AM [facility] Eos % 1.0 % 06/18/2024 1:38 AM [facility] Eos Absolute 0.10 0.00 - 0.40 x10(3)/mc L 06/18/2024 1:38 AM [facility] Basophil % 0.2 % 06/18/2024 1:38 AM [facility] Baso Absolute <0.04 0.00 - 0.10 x10(3)/mc L 06/18/2024 1:38 AM [facility] Immature Gran % 0.4 % 1:38 AM [facility] Immature Gran Absolute 0.04 0.00 - 0.04 x10(3)/mc L 06/18/2024 1:38 AM EST [facility] Blood VENOUS BLOOD SPECIMEN / Unknown Venipuncture / Unknown 06/18/2024 1:26 AM EST 06/18/2024 1:34 AM EST Martinez Reynolds MD HEMATOLOGY ORDERABLE S Performing Organization Address City/[facility]/ZIP Co de Phone Number [facility] [place] [address] * (ABNORMAL) Phosphorus (06/18/2024 1:26 AM EST) Phosphorus 5.7(H) 2.5 - 4.5 mg/dL 06/18/2024 2:02 AM EST [facility] Blood VENOUS BLOOD SPECIMEN / Unknown Venipuncture / Unknown 06/18/2024 1:26 AM EST 06/18/2024 1:34 AM EST Martinez Reynolds MD CHEMISTRY ORDERABLES Performing Organization Address City/[facility] Co de Phone Number [facility] [place] [address] * Magnesium (06/18/2024 1:26 AM EST) Pathologist [facility] Magnesium 0.84 0.69 - 1.07 mMol/L 06/18/2024 2:02 AM EST [facility] Blood VENOUS BLOOD SPECIMEN / Unknown Venipuncture / Unknown 06/18/2024 1:26 AM EST 06/18/2024 1:34 AM EST Martinez Reynolds MD CHEMISTRY ORDERABLES Performing Organization Address City/[facility]/ZIP Co de Phone Number [facility] [place] [address] * Basic Metabolic Panel (06/18/2024 1:26 AM EST) Glucose 106 65 - 199 mg/dL 06/18/2024 2:02 AM EST [facility] Comment:Glucose Concentratio n >=200 mg/dL plus symptoms is consistent with Diabetes Mellitus. Blood Urea Nitrogen 15 10 - 20 mg/dL 06/18/2024 2:02 AM [facility] Creatinine 1.05 0.80 - 1.50 mg/dL 06/18/2024 2:02 AM [facility] Sodium 138 135 - 145 mMol/L 06/18/2024 2:02 AM [facility] Potassium 4.4 3.5 - 5.0 mMol/L 06/18/2024 2:02 AM [facility] Chloride 102 98 - 107 mMol/L 06/18/2024 2:02 AM [facility] Carbon Dioxide 25 22 - 31 mMol/L 06/18/2024 2:02 AM [facility] Anion Gap 11 5 - 15 mMol/L 06/18/2024 2:02 AM [facility] Calcium 9.3 8.5 - 10.5 mg/dL 06/18/2024 2:02 AM [facility] Est Glomerular Filtration Rate - Male 96 mL/min/1. 73 m?? 06/18/2024 2:02 AM [facility] Comment: This patient's estimated GFR [...] MD CHEMISTRY ORDERABLES [facility] [place] [address] * EKG 12 Lead (06/18/2024 12:53 AM EST) Pathologist [facility] Ventricular rate 79 BPM MUSE SYSTEM Atrial Rate 79 BPM MUSE SYSTEM P-R Interval 160 ms MUSE SYSTEM QRS Duration 98 ms MUSE SYSTEM Q-T Interval 420 ms MUSE SYSTEM QTC Calculated (Bezet) 481 ms MUSE SYSTEM Calculated P [place] 17 degrees MUSE SYSTEM Calculated R [place] 46 degrees MUSE SYSTEM Calculated T [place] 45 degrees MUSE SYSTEM INTERPRETATION Normal sinus rhythm Nonspecific T wave abnormality Prolonged QT Abnormal ECG When compared with ECG of 14-JUN-2024 01:04, Nonspecific T wave abnormality now evident in Anterior leads I personally reviewed the tracing and edited the fellows interpretation Confirmed by fellow MD Corbin, Maninder ([id number]) on 06/18/2024 4:57:53 PM Confirmed by Anthony Penn MD ([id number]) on 06/19/2024 3:21:54 PM MUSE SYSTEM 06/18/2024 12:5 3 AM EST 06/19/2024 3:21 PM EST Samantha Babb MD ECG ORDERABLES MUSE SYSTEM * Sodium (06/17/2024 5:50 PM EST) Pathologist [facility] Sodium 141 135 - 145 mMol/L 06/17/2024 6:38 PM EST [facility] Blood VENOUS BLOOD SPECIMEN / Unknown Venipuncture / Unknown 06/17/2024 5:50 PM EST 06/17/2024 6:07 PM EST Channing Ballesteros MD CHEMISTRY ORDERABLES [facility] [place] [address] * (ABNORMAL) Hepatic Function Panel (06/17/2024 11:58 AM EST) Pathologist [facility] Albumin 4.2 3.2 - 5.2 g/dL 06/17/2024 12:45 PM EST [facility] Aspartate Aminotransferase 37 <=39 unit/L 06/17/2024 12:45 PM [facility] Alanine Aminotransferase 58(H) 0 - 55 unit/L 06/17/2024 12:45 PM [facility] Alkaline Phosphatase 118 40 - 130 unit/L 06/17/2024 12:45 PM [facility] Bilirubin, Total 0.2 <=1.3 mg/dL 06/17/2024 12:45 PM [facility] Bilirubin, Direct <0.2 0.0 - 0.3 mg/dL 06/17/2024 12:45 PM [facility] Protein, Total 7.1 6.1 - 8.0 g/dL 06/17/2024 12:45 PM [facility] Blood VENOUS BLOOD SPECIMEN / Unknown Venipuncture / Unknown 06/17/2024 11:58 AM EST 06/17/2024 12:11 PM EST Pamela Johnson DO CHEMISTRY ORDERAB LES [facility] [place] [address] * Sodium (06/17/2024 11:58 AM EST) Sodium 141 135 - 145 mMol/L 06/17/2024 12:45 PM EST [facility] Blood VENOUS BLOOD SPECIMEN / Unknown Venipuncture / Unknown 06/17/2024 11:58 AM EST 06/17/2024 12:11 PM EST Channing Ballesteros MD CHEMISTRY ORDERABLES [facility] [place] [address] * Sodium (06/17/2024 6:23 AM EST) Sodium 140 135 - 145 mMol/L 06/17/2024 6:53 AM EST [facility] Blood VENOUS BLOOD SPECIMEN / Unknown Venipuncture / Unknown 06/17/2024 6:23 AM EST 06/17/2024 6:29 AM EST Channing Ballesteros MD CHEMISTRY ORDERABLES [facility] [place] [address] * (ABNORMAL) CBC (with Diff) (06/17/2024 12:22 AM EST) White Blood Cell 6.81 4.00 - 9.50 x10(3)/mc L 06/17/2024 12:37 AM [facility] Red Blood Cell 5.20 4.58 - 5.54 x10(6)/mc L 06/17/2024 12:37 AM [facility] Hemoglobin 12.9(L) 13.7 - 16.5 g/dL 06/17/2024 12:37 AM [facility] Hematocrit 37.9(L) 40.5 - 48.5 % 06/17/2024 12:37 AM [facility] Mean Cell Volume 72.9(L) 82.9 - 93.1 fL 06/17/2024 12:37 AM [facility] Mean Cell Hemoglobin 24.8(L) 27.5 - 32.1 pg 06/17/2024 12:37 AM [facility] Mean Cell Hemoglobin Concentration 34.0 32.0 - 35.7 g/dL 06/17/2024 12:37 AM [facility] Platelet 301 145 - 357 x10(3)/mc L 06/17/2024 12:37 AM [facility] Mean Platelet Volume 9.0 7.6 - 12.9 fL 06/17/2024 12:37 AM [facility] RDW Standard Deviation 38.8 36.0 - 45.0 fL 06/17/2024 12:37 AM [facility] RDW coefficient of variation 14.9(H) 11.4 - 13.8 % 06/17/2024 12:37 AM [facility] NRBC% auto 0.0 % 06/17/2024 12:37 AM [facility] NRBC Absolute <0.01 <0.01 x10(3)/mc L 06/17/2024 12:37 AM [facility] Neutrophil % 58.2 % 06/17/2024 12:37 AM [facility] Neutrophil Absolute (ANC) - Automated 3.96 1.70 - 6.10 x10(3)/mc L 06/17/2024 12:37 AM [facility] Lymph % 30.1 % 06/17/2024 12:37 AM [facility] Lymph Absolute 2.05 0.90 - 3.20 x10(3)/mc L 06/17/2024 12:37 AM [facility] Monocyte % 9.8 % 06/17/2024 12:37 AM [facility] Monocyte Absolute 0.67 0.30 - 0.90 x10(3)/mc L 06/17/2024 12:37 AM [facility] Eos % 1.0 % 06/17/2024 12:37 AM [facility] Eos Absolute 0.07 0.00 - 0.40 x10(3)/mc L 06/17/2024 12:37 AM [facility] Basophil % 0.3 % 06/17/2024 12:37 AM [facility] Baso Absolute <0.04 0.00 - 0.10 x10(3)/mc L 06/17/2024 12:37 AM [facility] Immature Gran % 0.6 % 12:37 AM [facility] Immature Gran Absolute 0.04 0.00 - 0.04 x10(3)/mc L 06/17/2024 12:37 AM [facility] Blood VENOUS BLOOD SPECIMEN / Unknown Venipuncture / Unknown 06/17/2024 12:22 AM EST 06/17/2024 12:28 AM EST Martinez Reynolds MD HEMATOLOGY ORDERABLE S [facility] [place] [address] * Phosphorus (06/17/2024 12:22 AM EST) Phosphorus 4.3 2.5 - 4.5 mg/dL 06/17/2024 12:58 AM EST [facility] Blood VENOUS BLOOD SPECIMEN / Unknown Venipuncture / Unknown 06/17/2024 12:22 AM EST 06/17/2024 12:28 AM EST Martinez Reynolds MD CHEMISTRY ORDERABLES Performing Organization Address City/[facility]/ZIP Co de Phone Number [facility] [place] [address] * Magnesium (06/17/2024 12:22 AM EST) Magnesium 0.88 0.69 - 1.07 mMol/L 06/17/2024 12:58 AM EST [facility] Blood VENOUS BLOOD SPECIMEN / Unknown Venipuncture / Unknown 06/17/2024 12:22 AM EST 06/17/2024 12:28 AM EST Martinez Reynolds MD CHEMISTRY ORDERABLES Performing Organization Address City/[facility]/ZIP Co de Phone Number [facility] [place] [address] * Basic Metabolic Panel (06/17/2024 12:22 AM EST) Glucose 99 65 - 199 mg/dL 06/17/2024 1:12 AM EST [facility] Comment:Glucose Concentratio n >=200 mg/dL plus symptoms is consistent with Diabetes Mellitus. Blood Urea Nitrogen 14 10 - 20 mg/dL 06/17/2024 1:12 AM EST [facility] Creatinine 0.90 0.80 - 1.50 mg/dL 06/17/2024 1:12 AM [facility] Sodium 140 135 - 145 mMol/L 06/17/2024 1:12 AM [facility] Potassium 4.1 3.5 - 5.0 mMol/L 06/17/2024 1:12 AM [facility] Chloride 105 98 - 107 mMol/L 06/17/2024 1:12 AM [facility] Carbon Dioxide 24 22 - 31 mMol/L 06/17/2024 1:12 AM [facility] Anion Gap 11 5 - 15 mMol/L 06/17/2024 1:12 AM [facility] Calcium 9.4 8.5 - 10.5 mg/dL 06/17/2024 1:12 AM [facility] Est Glomerular Filtration Rate - Male 115 mL/min/1. 73 m?? 06/17/2024 1:12 AM [facility] Comment: This patient's estimated GFR [...] MD CHEMISTRY ORDERABLES [facility] [place] [address] * Sodium (06/16/2024 6:37 PM EST) Sodium 142 135 - 145 mMol/L 06/16/2024 6:55 PM [facility] Blood VENOUS BLOOD SPECIMEN / Unknown Venipuncture / Unknown 06/16/2024 6:37 PM EST 06/16/2024 6:42 PM EST Channing Ballesteros MD CHEMISTRY ORDERABLES Performing Organization Address [facility]/ZIP Co de Phone Number [facility] [place] [address] * Sodium (06/16/2024 2:05 PM EST) Sodium 135 135 - 145 mMol/L 06/16/2024 2:54 PM EST [facility] Blood VENOUS BLOOD SPECIMEN / Unknown Venipuncture / Unknown 06/16/2024 2:05 PM EST 06/16/2024 2:23 PM EST Channing Ballesteros MD CHEMISTRY ORDERABLES Performing Organization Address [facility]/ZIP Co de Phone Number [facility] [place] [address] * Sodium (06/16/2024 12:03 PM EST) Sodium 139 135 - 145 mMol/L 06/16/2024 1:02 PM EST [facility] Blood VENOUS BLOOD SPECIMEN / Unknown Venipuncture / Unknown 06/16/2024 12:03 PM EST 06/16/2024 12:06 PM EST Marline Calderon APRN CHEMISTRY ORDERABL ES Performing Organization Address City/[facility]/ZIP Co de Phone Number [facility] [place] [address] * (ABNORMAL) Sodium (06/16/2024 6:00 AM EST) Sodium 131(L) 135 - 145 mMol/L 06/16/2024 6:26 AM EST [facility] Blood VENOUS BLOOD SPECIMEN / Unknown Venipuncture / Unknown 06/16/2024 6:00 AM EST 06/16/2024 6:03 AM EST Marline Calderon [employer] CHEMISTRY ORDERABL ES [facility] [place] [address] * (ABNORMAL) CBC (with Diff) (06/16/2024 12:09 AM EST) White Blood Cell 7.71 4.00 - 9.50 x10(3)/mc L 06/16/2024 12:26 AM [facility] Red Blood Cell 4.69 4.58 - 5.54 x10(6)/mc L 06/16/2024 12:26 AM [facility] Hemoglobin 11.7(L) 13.7 - 16.5 g/dL 06/16/2024 12:26 AM [facility] Hematocrit 33.8(L) 40.5 - 48.5 % 06/16/2024 12:26 AM [facility] Mean Cell Volume 72.1(L) 82.9 - 93.1 fL 06/16/2024 12:26 AM [facility] Mean Cell Hemoglobin 24.9(L) 27.5 - 32.1 pg 06/16/2024 12:26 AM [facility] Mean Cell Hemoglobin Concentration 34.6 32.0 - 35.7 g/dL 06/16/2024 12:26 AM [facility] Platelet 241 145 - 357 x10(3)/mc L 06/16/2024 12:26 AM [facility] Mean Platelet Volume 9.3 7.6 - 12.9 fL 06/16/2024 12:26 AM [facility] RDW Standard Deviation 37.3 36.0 - 45.0 fL 06/16/2024 12:26 AM [facility] RDW coefficient of variation 14.5(H) 11.4 - 13.8 % 06/16/2024 12:26 AM [facility] NRBC% auto 0.0 % 06/16/2024 12:26 AM [facility] NRBC Absolute <0.01 <0.01 x10(3)/mc L 06/16/2024 12:26 AM [facility] Neutrophil % 64.4 % 06/16/2024 12:26 AM [facility] Neutrophil Absolute (ANC) - Automated 4.96 1.70 - 6.10 x10(3)/mc L 06/16/2024 12:26 AM [facility] Lymph % 23.7 % 06/16/2024 12:26 AM [facility] Lymph Absolute 1.83 0.90 - 3.20 x10(3)/mc L 06/16/2024 12:26 AM [facility] Monocyte % 9.7 % 06/16/2024 12:26 AM [facility] Monocyte Absolute 0.75 0.30 - 0.90 x10(3)/mc L 06/16/2024 12:26 AM [facility] Eos % 1.0 % 06/16/2024 12:26 AM [facility] Eos Absolute 0.08 0.00 - 0.40 x10(3)/mc L 06/16/2024 12:26 AM [facility] Basophil % 0.4 % 06/16/2024 12:26 AM [facility] Baso Absolute <0.04 0.00 - 0.10 x10(3)/mc L 06/16/2024 12:26 AM [facility] Immature Gran % 0.8 % 12:26 AM [facility] Immature Gran Absolute 0.06(H) 0.00 - 0.04 x10(3)/mc L 06/16/2024 12:26 AM [facility] Blood VENOUS BLOOD SPECIMEN / Unknown Venipuncture / Unknown 06/16/2024 12:09 AM EST 06/16/2024 12:21 AM EST Martinez Reynolds MD HEMATOLOGY ORDERABLE S [facility] [place] [address] * Phosphorus (06/16/2024 12:09 AM EST) Phosphorus 3.2 2.5 - 4.5 mg/dL 06/16/2024 12:50 AM EST [facility] Blood VENOUS BLOOD SPECIMEN / Unknown Venipuncture / Unknown 06/16/2024 12:09 AM EST 06/16/2024 12:21 AM EST Martinez Reynolds MD CHEMISTRY ORDERABLES Performing Organization Address City/[facility]/ZIP Co de Phone Number [facility] [place] [address] * Magnesium (06/16/2024 12:09 AM EST) Magnesium 0.85 0.69 - 1.07 mMol/L 06/16/2024 12:50 AM EST [facility] Blood VENOUS BLOOD SPECIMEN / Unknown Venipuncture / Unknown 06/16/2024 12:09 AM EST 06/16/2024 12:21 AM EST Martinez Reynolds MD CHEMISTRY ORDERABLES [facility] [place] [address] * (ABNORMAL) Basic Metabolic Panel (06/16/2024 12:09 AM EST) Glucose 92 65 - 199 mg/dL 06/16/2024 12:50 AM EST [facility] Comment:Glucose Concentratio n >=200 mg/dL plus symptoms is consistent with Diabetes Mellitus. Blood Urea Nitrogen 12 10 - 20 mg/dL 06/16/2024 12:50 AM EST [facility] Creatinine 0.92 0.80 - 1.50 mg/dL 06/16/2024 12:50 AM EST [facility] Sodium 131(L) 135 - 145 mMol/L 06/16/2024 12:50 AM [facility] Potassium 3.9 3.5 - 5.0 mMol/L 06/16/2024 12:50 AM [facility] Chloride 99 98 - 107 mMol/L 06/16/2024 12:50 AM [facility] Carbon Dioxide 22 22 - 31 mMol/L 06/16/2024 12:50 AM [facility] Anion Gap 10 5 - 15 mMol/L 06/16/2024 12:50 AM [facility] Calcium 8.3(L) 8.5 - 10.5 mg/dL 06/16/2024 12:50 AM [facility] Est Glomerular Filtration Rate - Male 112 mL/min/1. 73 m?? 06/16/2024 12:50 AM [facility] Comment: This patient's estimated GFR [...] MD CHEMISTRY ORDERABLES [facility] [place] [address] * (ABNORMAL) Sodium (2024 5:58 PM EST) Sodium 129(L) 135 - 145 mMol/L 2024 6:37 PM [facility] Blood VENOUS BLOOD SPECIMEN / Unknown Venipuncture / Unknown 2024 5:58 PM EST 2024 6:05 PM EST Marline Calderon [employer] PATROLLER CHEMISTRY ORDERABL ES [facility] [place] [address] * MRI Brain wwo Contrast (Generic) (2024 4:20 PM EST) WORKSTATION ID [id number] RAD Anatomical Region Laterality Modality Head Magnetic [...] who have questions please contact the health farm or ranch animal caretaker that requested your imaging first. ? [...] clip with its blades near the right [employer]US NOTES ADMINISTRATOR. Procedure Note Raudel Heredia MD - 2024 [...] aneurysm clipwith its blades near the right LOTUS NOTES ADMINISTRATOR. IMPRESSION Homogeneously enhancing 3.5 cm mass along [...] patients who have questions please contactthe health farm or ranch animal caretaker that requested your imaging first. Electronically signed by: Raudel Heredia MD, [facility]([phone]), at 2024 4:46 PM Marline aClderon APRN IMG MRI ORDERABLES * (ABNORMAL) Sodium (2024 12:07 PM EST) Sodium 129(L) 135 - 145 mMol/L 2024 12:47 PM EST [facility] Blood VENOUS BLOOD SPECIMEN / Unknown Venipuncture / Unknown 2024 12:07 PM EST 2024 12:33 PM EST Marline Calderon APRN CHEMISTRY ORDERABL ES Performing Organization Address City/[facility]/ZIP Co de Phone Number [facility] [place] [address] * (ABNORMAL) Sodium (2024 5:54 AM EST) Sodium 128(L) 135 - 145 mMol/L 2024 6:42 AM EST [facility] Blood VENOUS BLOOD SPECIMEN / Unknown Venipuncture / Unknown 2024 5:54 AM EST 2024 6:14 AM EST Marline Calderon [employer] CHEMISTRY ORDERABL ES [facility] [place] [address] * (ABNORMAL) CBC (with Diff) (2024 12:06 AM EST) White Blood Cell 6.30 4.00 - 9.50 x10(3)/mc L 2024 12:17 AM EST [facility] Red Blood Cell 4.79 4.58 - 5.54 x10(6)/mc L 2024 12:17 AM EST [facility] Hemoglobin 11.9(L) 13.7 - 16.5 g/dL 2024 12:17 AM [facility] Hematocrit 34.2(L) 40.5 - 48.5 % 2024 12:17 AM [facility] Mean Cell Volume 71.4(L) 82.9 - 93.1 fL 2024 12:17 AM [facility] Mean Cell Hemoglobin 24.8(L) 27.5 - 32.1 pg 2024 12:17 AM [facility] Mean Cell Hemoglobin Concentration 34.8 32.0 - 35.7 g/dL 2024 12:17 AM [facility] Platelet 269 145 - 357 x10(3)/mc L 2024 12:17 AM [facility] Mean Platelet Volume 9.1 7.6 - 12.9 fL 2024 12:17 AM [facility] RDW Standard Deviation 35.5(L) 36.0 - 45.0 fL 2024 12:17 AM [facility] RDW coefficient of variation 13.9(H) 11.4 - 13.8 % 2024 12:17 AM [facility] NRBC% auto 0.0 % 2024 12:17 AM [facility] NRBC Absolute <0.01 <0.01 x10(3)/mc L 2024 12:17 AM [facility] Neutrophil % 57.9 % 2024 12:17 AM [facility] Neutrophil Absolute (ANC) - Automated 3.65 1.70 - 6.10 x10(3)/mc L 2024 12:17 AM [facility] Lymph % 30.3 % 2024 12:17 AM [facility] Lymph Absolute 1.91 0.90 - 3.20 x10(3)/mc L 2024 12:17 AM [facility] Monocyte % 9.7 % 2024 12:17 AM [facility] Monocyte Absolute 0.61 0.30 - 0.90 x10(3)/mc L 2024 12:17 AM [facility] Eos % 1.3 % 2024 12:17 AM [facility] Eos Absolute 0.08 0.00 - 0.40 x10(3)/mc L 2024 12:17 AM [facility] Basophil % 0.3 % 2024 12:17 AM [facility] Baso Absolute <0.04 0.00 - 0.10 x10(3)/mc L 2024 12:17 AM [facility] Immature Gran % 0.5 % 12:17 AM [facility] Immature Gran Absolute <0.04 0.00 - 0.04 x10(3)/mc L 2024 12:17 AM [facility] Blood VENOUS BLOOD SPECIMEN / Unknown Venipuncture / Unknown 2024 12:06 AM EST 2024 12:10 AM EST Martinez Reynolds MD HEMATOLOGY ORDERABLE S Performing Organization Address City/State/[facility] Co de Phone Number [facility] [place] [address] * Phosphorus (2024 12:06 AM EST) Phosphorus 2.8 2.5 - 4.5 mg/dL 2024 12:39 AM [facility] Blood VENOUS BLOOD SPECIMEN / Unknown Venipuncture / Unknown 2024 12:06 AM EST 2024 12:10 AM EST Martinez Reynolds MD CHEMISTRY ORDERABLES [facility] [place] [address] * Magnesium (2024 12:06 AM EST) Pathologist [facility] Magnesium 0.79 0.69 - 1.07 mMol/L 2024 12:39 AM [facility] Blood VENOUS BLOOD SPECIMEN / Unknown Venipuncture / Unknown 2024 12:06 AM EST 2024 12:10 AM EST Martinez Reynolds MD CHEMISTRY ORDERABLES Performing Organization Address City/[facility]/ZIP Co de Phone Number [facility] [place] [address] * (ABNORMAL) Basic Metabolic Panel (2024 12:06 AM EST) Pathologist [facility] Glucose 103 65 - 199 mg/dL 2024 12:39 AM [facility] Comment:Glucose Concentratio n >=200 mg/dL plus symptoms is consistent with Diabetes Mellitus. Blood Urea Nitrogen 14 10 - 20 mg/dL 2024 12:39 AM [facility] Creatinine 0.74(L) 0.80 - 1.50 mg/dL 2024 12:39 AM [facility] Sodium 128(L) 135 - 145 mMol/L 2024 12:39 AM [facility] Potassium 4.1 3.5 - 5.0 mMol/L 2024 12:39 AM [facility] Chloride 97(L) 98 - 107 mMol/L 2024 12:39 AM [facility] Carbon Dioxide 19(L) 22 - 31 mMol/L 2024 12:39 AM [facility] Anion Gap 12 5 - 15 mMol/L 2024 12:39 AM [facility] Calcium 8.1(L) 8.5 - 10.5 mg/dL 2024 12:39 AM EST [facility] Est Glomerular Filtration Rate - Male 122 mL/min/1. 73 m?? 2024 12:39 AM EST [facility] Comment: [...] MD CHEMISTRY ORDERABLES [facility] [place] [address] * (ABNORMAL) Sodium (06/14/2024 6:49 PM EST) Sodium 126(L) 135 - 145 mMol/L 06/14/2024 7:17 PM EST [facility] Blood VENOUS BLOOD SPECIMEN / Unknown Venipuncture / Unknown 06/14/2024 6:49 PM EST 06/14/2024 6:53 PM EST Marline Calderon APRN CHEMISTRY ORDERABL ES [facility] [place] [address] * EEG Continuous Monitoring Inpatient (06/14/2024 3:33 [...] Formal report will follow in the AM. Rahsard Navarrete MD 06/14/2024 Marline Calderon APRN NEUROLOGY ORDERABL ES * (ABNORMAL) Sodium (06/14/2024 2:15 PM EST) Sodium 126(L) 135 - 145 mMol/L 06/14/2024 3:18 PM EST [facility] Blood VENOUS BLOOD SPECIMEN / Unknown Venipuncture / Unknown 06/14/2024 2:15 PM EST 06/14/2024 2:36 PM EST Mariola Alfred MD CHEMISTRY ORDERABLES Performing Organization Address City/[facility]/ZIP Co de Phone Number [facility] [place] [address] * (ABNORMAL) Sodium (06/14/2024 12:12 PM EST) Sodium 125(L) 135 - 145 mMol/L 06/14/2024 12:48 PM EST [facility] Blood VENOUS BLOOD SPECIMEN / Unknown Venipuncture / Unknown 06/14/2024 12:12 PM EST 06/14/2024 12:20 PM EST Mariola Alfred MD CHEMISTRY ORDERABLES [facility] [place] [address] * (ABNORMAL) Sodium (06/14/2024 10:35 AM EST) Sodium 125(L) 135 - 145 mMol/L 06/14/2024 11:21 AM EST [facility] Blood VENOUS BLOOD SPECIMEN / Unknown Venipuncture / Unknown 06/14/2024 10:35 AM EST 06/14/2024 10:44 AM EST Mariola Alfred MD CHEMISTRY ORDERABLES [facility] [place] [address] * Request For 2nd Read CT Head (06/14/2024 9:46 AM EST) WORKSTATION ID [id number] RAD Anatomical Region Laterality Modality Head SO [...] who have questions please contact the health farm or ranch animal caretaker that requested your imaging first. ? Narrative 06/14/2024 10:41 AM EST EXAMINATION: REQUEST FOR 2ND READ CT HEAD CLINICAL HISTORY: New seizure with known mass, ?enlargening. Presenting with seizure; Sending Institution [facility]; Date of exam [id number]; I believe [...] known mass, ?enlargening. Presentingwith seizure; Sending Institution [facility]; Date of exam [id number]; I believe a reinterpretation of this exam may alter care of Patient. Yes TECHNIQUE: Reinterpretation of noncontrast CT head performed at [facility] 06/13/2024 at 2143 hours COMPARISON: [...] patients who have questions please contactthe health farm or ranch animal caretaker that requested your imaging first. Electronically signed by: Galen Balderas [facility]([phone]), at 06/14/2024 10:41 AM Lexie Osullivan [employer] IMG OUTSIDE INTERP RETATION ORDERABLES * (ABNORMAL) Urinalysis Microscopic (06/14/2024 8:06 AM EST) Bacteria, Urine None None /HPF 12:26 PM [facility] Amorphous Crystals, Urine Many(A) None /HPF 06/14/2024 12:26 PM [facility] RBC, Urine 1 0 - 3 /HPF 06/14/2024 12:26 PM [facility] WBC, Urine 1 0 - 3 /HPF 06/14/2024 12:26 PM [facility] Squamous Epithelial Cells, Urine 0 0 - 5 /HPF 06/14/2024 12:26 PM [facility] Hyaline Casts, Urine 0 0 - 2 /LPF 06/14/2024 12:26 PM [facility] Urine URINE SPECIMEN / Unknown Non Blood Collection / Unknown 06/14/2024 8:06 AM EST 06/14/2024 8:52 AM EST Marline Calderon [employer] URINE ORDERABLES Performing Organization Address City/[facility]/ZIP Co de Phone Number [facility] [place] [address] * Urinalysis Microscopic Exam (06/14/2024 8:06 AM EST) Urine URINE SPECIMEN / Unknown Non Blood Collection / Unknown 06/14/2024 8:06 AM EST 06/14/2024 8:52 AM EST Marline Calderon [employer] URINE ORDERABLES [facility] [place] [address] * (ABNORMAL) Urinalysis Dipstick (06/14/2024 8:06 AM EST) Glucose, Urine Dipstick Negative Negative 06/14/2024 12:26 PM [facility] Protein, Urine Dipstick Negative Negative 06/14/2024 12:26 PM [facility] Bilirubin, Urine Dipstick Negative Negative 06/14/2024 12:26 PM [facility] Comment:Clinical correlation required for positive Urine Bilirubin results as false positive may occur with some drugs and drug related products. If a false positive is suspected a serum total bilirubin should be considered if clinically indicated. Urobilinogen, Urine Dipstick Normal Normal, 0.2 mg/dL, 1.0 mg/dL 06/14/2024 12:26 PM [facility] pH, Urine (dipstick) 7.0 5.0 - 8.0 06/14/2024 12:26 PM [facility] Blood, Urine Dipstick Negative Negative 06/14/2024 12:26 PM [facility] Ketone, Urine Dipstick Negative Negative 06/14/2024 12:26 PM [facility] Nitrite, Urine Dipstick Negative Negative 06/14/2024 12:26 PM [facility] Leukocytes, Urine Dipstick Negative Negative 06/14/2024 12:26 PM [facility] Specific [place] Urine Automated 1.016 1.005 - 1.030 06/14/2024 12:26 PM [facility] Appearance, Urine Dipstick Turbid(A) Clear 06/14/2024 12:26 PM [facility] Color, Urine Dipstick Yellow Yellow, Dark Yellow 06/14/2024 12:26 PM [facility] CULTURE ADDED? 06/14/2024 12:26 PM [facility] Urine URINE SPECIMEN / Unknown Non Blood Collection / Unknown 06/14/2024 8:06 AM EST 06/14/2024 8:52 AM EST Marline Calderon APRN URINE ORDERABLES [facility] [place] [address] * (ABNORMAL) Sodium (06/14/2024 8:06 AM EST) Sodium 124(L) 135 - 145 mMol/L 06/14/2024 9:59 AM EST [facility] Blood VENOUS BLOOD SPECIMEN / Unknown Venipuncture / Unknown 06/14/2024 8:06 AM EST 06/14/2024 8:53 AM EST Mariola Alfred MD CHEMISTRY ORDERABLES [facility] [place] [address] * Electrolytes, urine, random (06/14/2024 8:06 AM [...] Alfred MD URINE ORDERABLES Performing Organization Address City/[facility]/ZIP Co de Phone Number [facility] [place] [address] * Osmolality, urine, random (06/14/2024 8:06 AM EST) Osmolality, Urine 496 50 - 1,200 mOsm/kg 06/14/2024 10:55 AM EST [facility] Urine URINE SPECIMEN / Unknown Non Blood Collection / Unknown 06/14/2024 8:06 AM EST 06/14/2024 8:52 AM EST Maroila Alfred MD URINE ORDERABLES [facility] [place] [address] * (ABNORMAL) CBC (with Diff) (06/14/2024 5:27 AM EST) [facility] Signature White Blood Cell 8.68 4.00 - 9.50 x10(3)/mc L 06/14/2024 5:54 AM [facility] Red Blood Cell 5.08 4.58 - 5.54 x10(6)/mc L 06/14/2024 5:54 AM [facility] Hemoglobin 12.5(L) 13.7 - 16.5 g/dL 06/14/2024 5:54 AM [facility] Hematocrit 35.8(L) 40.5 - 48.5 % 06/14/2024 5:54 AM [facility] Mean Cell Volume 70.5(L) 82.9 - 93.1 fL 06/14/2024 5:54 AM [facility] Mean Cell Hemoglobin 24.6(L) 27.5 - 32.1 pg 06/14/2024 5:54 AM [facility] Mean Cell Hemoglobin Concentration 34.9 32.0 - 35.7 g/dL 06/14/2024 5:54 AM [facility] Platelet 284 145 - 357 x10(3)/mc L 06/14/2024 5:54 AM [facility] Mean Platelet Volume 9.2 7.6 - 12.9 fL 06/14/2024 5:54 AM [facility] RDW Standard Deviation 34.3(L) 36.0 - 45.0 fL 06/14/2024 5:54 AM [facility] RDW coefficient of variation 13.6 11.4 - 13.8 % 06/14/2024 5:54 AM [facility] NRBC% auto 0.0 % 06/14/2024 5:54 AM [facility] NRBC Absolute <0.01 <0.01 x10(3)/mc L 06/14/2024 5:54 AM [facility] Neutrophil % 81.7 % 06/14/2024 5:54 AM [facility] Neutrophil Absolute (ANC) - Automated 7.09(H) 1.70 - 6.10 x10(3)/mc L 06/14/2024 5:54 AM [facility] Lymph % 13.0 % 06/14/2024 5:54 AM [facility] Lymph Absolute 1.13 0.90 - 3.20 x10(3)/mc L 06/14/2024 5:54 AM [facility] Monocyte % 4.3 % 06/14/2024 5:54 AM [facility] Monocyte Absolute 0.37 0.30 - 0.90 x10(3)/mc L 06/14/2024 5:54 AM [facility] Eos % 0.2 % 06/14/2024 5:54 AM [facility] Eos Absolute <0.04 0.00 - 0.40 x10(3)/mc L 06/14/2024 5:54 AM [facility] Basophil % 0.2 % 06/14/2024 5:54 AM [facility] Baso Absolute <0.04 0.00 - 0.10 x10(3)/mc L 06/14/2024 5:54 AM [facility] Immature Gran % 0.6 % 5:54 AM [facility] Immature Gran Absolute 0.05(H) 0.00 - 0.04 x10(3)/mc L 06/14/2024 5:54 AM [facility] Blood VENOUS BLOOD SPECIMEN / Unknown Venipuncture / Unknown 06/14/2024 5:27 AM EST 06/14/2024 5:45 AM EST Martinez Reynolds MD HEMATOLOGY ORDERABLE S [facility] [place] [address] * Phosphorus (06/14/2024 5:27 AM EST) Pathologist [facility] Phosphorus 2.8 2.5 - 4.5 mg/dL 06/14/2024 8:36 AM [facility] Blood VENOUS BLOOD SPECIMEN / Unknown Venipuncture / Unknown 06/14/2024 5:27 AM EST 06/14/2024 5:45 AM EST Martinez Reynolds MD CHEMISTRY ORDERABLES Performing Organization Address City/[facility]/ZIP Co de Phone Number [facility] [place] [address] * Magnesium (06/14/2024 5:27 AM EST) [facility] Magnesium 0.83 0.69 - 1.07 mMol/L 06/14/2024 6:22 AM [facility] Blood VENOUS BLOOD SPECIMEN / Unknown Venipuncture / Unknown 06/14/2024 5:27 AM EST 06/14/2024 5:45 AM EST Martinez Reynolds MD CHEMISTRY ORDERABLES Performing Organization Address City/[facility]/ZIP Co de Phone Number [facility] [place] [address] * (ABNORMAL) Basic Metabolic Panel (06/14/2024 5:27 AM EST) [facility] Glucose 109 65 - 199 mg/dL 06/14/2024 6:22 AM [facility] Comment:Glucose Concentratio n >=200 mg/dL plus symptoms is consistent with Diabetes Mellitus. Blood Urea Nitrogen 14 10 - 20 mg/dL 06/14/2024 6:22 AM [facility] Creatinine 0.76(L) 0.80 - 1.50 mg/dL 06/14/2024 6:22 AM [facility] Sodium 124(L) 135 - 145 mMol/L 06/14/2024 6:22 AM [facility] Potassium 4.0 3.5 - 5.0 mMol/L 06/14/2024 6:22 AM EST [facility] Chloride 93(L) 98 - 107 mMol/L 06/14/2024 6:22 AM EST [facility] Carbon Dioxide 19(L) 22 - 31 mMol/L 06/14/2024 6:22 AM [facility] Anion Gap 12 5 - 15 mMol/L 06/14/2024 6:22 AM [facility] Calcium 7.9(L) 8.5 - 10.5 mg/dL 06/14/2024 6:22 AM EST [facility] Est Glomerular Filtration Rate - Male 122 mL/min/1. 73 m?? 06/14/2024 6:22 AM [facility] Comment: This patient's estimated GFR [...] MD CHEMISTRY ORDERABLES [facility] [place] [address] * XR Chest One View (06/14/2024 4:02 AM EST) WORKSTATION ID [id number] RAD Anatomical Region Laterality Modality Chest N/A [...] who have questions please contact the health farm or ranch animal caretaker that requested your imaging first. ? Electronically signed by: Beverley Valencia MD, [facility] ([phone]), at 06/14/2024 4:32 AM Narrative 06/14/2024 4:32 [...] patients who have questions please contactthe health farm or ranch animal caretaker that requested your imaging first. Electronically signed by: Beverley Valencia MD, [facility]([phone]), at 06/14/2024 4:32 AM Mariola Alfred MD IMG DX ORDERABLES * (ABNORMAL) Sodium (06/14/2024 3:32 AM EST) Sodium 122(L) 135 - 145 mMol/L 06/14/2024 4:02 AM [facility] Blood VENOUS BLOOD SPECIMEN / Unknown Venipuncture / Unknown 06/14/2024 3:32 AM EST 06/14/2024 3:37 AM EST Mariola Alfred MD CHEMISTRY ORDERABLES [facility] [place] [id number] * (ABNORMAL) Blood Gas, Venous POC (06/14/2024 1:35 AM EST) pH, Venous 7.39 7.32 - 7.42 06/14/2024 1:36 AM [facility] PCO2, Venous 37(L) 38 - 58 mmHg 06/14/2024 1:36 AM [facility] PO2, Venous 27 16 - 65 mmHg 06/14/2024 1:36 AM [facility] Bicarbonate, Venous 21.9(L) 22 - 31 mmol/L 06/14/2024 1:36 AM [facility] Base Excess, Venous -3.1(L) 1.9 - 4.5 mmol/L 06/14/2024 1:36 AM [facility] Hemoglobin, Venous 13.4(L) 13.7 - 16.5 g/dL 06/14/2024 1:36 AM [facility] Oxyhemoglobin, Venous 46.8 % 06/14/2024 1:36 AM [facility] Carboxyhemoglobin , Venous 0.7 % 06/14/2024 1:36 AM [facility] Comment: Nonsmokers: 0.5-1.5% COHB ?? Smokers: Variable ??but usually less than 10% ?? Toxic: 20-30% COHB ?? Lethal: Greater than 60% COHB Methemoglobin, Venous 0.3 <=1.5 % 06/14/2024 1:36 AM [facility] Sodium, Venous 123(L) 135 - 145 mmol/L 06/14/2024 1:36 AM [facility] Potassium, Venous 3.7 3.5 - 5.0 mmol/L 06/14/2024 1:36 AM [facility] Chloride, Venous 92(L) 98 - 107 mmol/L 06/14/2024 1:36 AM [facility] Glucose, Venous 85 65 - 199 mg/dL 06/14/2024 1:36 AM [facility] Comment:Glucose Concentratio n >=200 mg/dL plus symptoms is consistent with Diabetes Mellitus. Lactate, Venous 2.3(H) 0.5 - 2.2 mmol/L 06/14/2024 1:36 AM [facility] Ionized Calcium, Venous 1.10(L) 1.15 - 1.33 mmol/L 06/14/2024 1:36 AM [facility] Blood VENOUS BLOOD SPECIMEN / Unknown 06/14/2024 1:35 AM EST 06/14/2024 1:36 AM EST Mariola Alfred MD POINT OF CARE TEST O RDERABLES [facility] [place] [address] * POC, GLUCOSE (06/14/2024 1:06 AM EST) Glucometer, POC 113 65 - 199 mg/dL 06/14/2024 1:06 AM [facility] Comment:Supplemental ranges: <140 mg/dL before meals <180 mg/dL all other times of the day. Blood CAPILLARY BLOOD / Unknown 06/14/2024 1:06 AM EST 06/14/2024 1:06 AM EST Mariola Alfred MD POINT OF CARE TEST O RDERABLES [facility] [place] [address] * EKG 12 Lead (06/14/2024 1:04 AM EST) Ventricular rate 85 BPM MUSE SYSTEM Atrial Rate 85 BPM MUSE SYSTEM P-R Interval 182 ms MUSE SYSTEM QRS Duration 94 ms MUSE SYSTEM Q-T Interval 388 ms MUSE SYSTEM QTC Calculated (Bezet) 461 ms MUSE SYSTEM Calculated P [place] 35 degrees MUSE SYSTEM Calculated R [place] 57 degrees MUSE SYSTEM Calculated T [place] 48 degrees MUSE SYSTEM INTERPRETATION Normal sinus rhythm Normal ECG When compared with ECG of 01-MAR-2018 09:20, Nonspecific T wave abnormality no longer evident in Inferior leads T wave inversion no longer evident in Lateral leads I personally reviewed the tracing and edited the fellows interpretation Confirmed by fellow Rosalie Obrien ([id number]) on 2024 9:31:30 PM Confirmed by Hannah Marin MD ([id number]) on 06/17/2024 11:43:44 AM MUSE SYSTEM 06/14/2024 1:04 AM EST 06/17/2024 11:43 AM EST Mariola Alfred MD ECG ORDERABLES Performing Organization Address [facility]/ZIP Co de Phone Number MUSE SYSTEM * Scan, Peripheral Blood (06/14/2024 1:03 AM EST) RBC Morphology Abnormal 06/14/2024 2:00 AM EST [facility] Platelet Estimate Normal Normal 06/14/2024 2:00 AM EST [facility] Microcyte 1-5 /HPF 06/14/2024 2:00 AM EST [facility] Tear Cell 1-5 /HPF 06/14/2024 2:00 AM EST [facility] Blood VENOUS BLOOD SPECIMEN / Unknown Venipuncture / Unknown 06/14/2024 1:03 AM EST 06/14/2024 1:08 AM EST Mariola Alfred MD HEMATOLOGY ORDERABLE S [facility] [place] [address] * (ABNORMAL) CBC (with Diff) (06/14/2024 1:03 AM [facility]) White Blood Cell 10.38(H) 4.00 - 9.50 x10(3)/mc L 06/14/2024 2:00 AM [facility] Red Blood Cell 5.05 4.58 - 5.54 x10(6)/mc L 06/14/2024 2:00 AM [facility] Hemoglobin 12.2(L) 13.7 - 16.5 g/dL 06/14/2024 2:00 AM [facility] Hematocrit 35.5(L) 40.5 - 48.5 % 06/14/2024 2:00 AM [facility] Mean Cell Volume 70.3(L) 82.9 - 93.1 fL 06/14/2024 2:00 AM [facility] Mean Cell Hemoglobin 24.2(L) 27.5 - 32.1 pg 06/14/2024 2:00 AM [facility] Mean Cell Hemoglobin Concentration 34.4 32.0 - 35.7 g/dL 06/14/2024 2:00 AM [facility] Platelet 276 145 - 357 x10(3)/mc L 06/14/2024 2:00 AM [facility] Mean Platelet Volume 9.0 7.6 - 12.9 fL 06/14/2024 2:00 AM [facility] RDW Standard Deviation 33.6(L) 36.0 - 45.0 fL 06/14/2024 2:00 AM [facility] RDW coefficient of variation 13.4 11.4 - 13.8 % 06/14/2024 2:00 AM [facility] NRBC% auto 0.0 % 06/14/2024 2:00 AM [facility] NRBC Absolute <0.01 <0.01 x10(3)/mc L 06/14/2024 2:00 AM [facility] Neutrophil % 85.7 % 06/14/2024 2:00 AM [facility] Neutrophil Absolute (ANC) - Automated 8.90(H) 1.70 - 6.10 x10(3)/mc L 06/14/2024 2:00 AM [facility] Lymph % 8.4 % 06/14/2024 2:00 AM [facility] Lymph Absolute 0.87(L) 0.90 - 3.20 x10(3)/mc L 06/14/2024 2:00 AM [facility] Monocyte % 4.4 % 06/14/2024 2:00 AM [facility] LABORATORY Monocyte Absolute 0.46 0.30 - 0.90 x10(3)/mc L 06/14/2024 2:00 AM [facility] Eos % 0.5 % 06/14/2024 2:00 AM [facility] Eos Absolute 0.05 0.00 - 0.40 x10(3)/mc L 06/14/2024 2:00 AM [facility] Basophil % 0.2 % 06/14/2024 2:00 AM [facility] Baso Absolute <0.04 0.00 - 0.10 x10(3)/mc L 06/14/2024 2:00 AM [facility] Immature Gran % 0.8 % 2:00 AM [facility] Immature Gran Absolute 0.08(H) 0.00 - 0.04 x10(3)/mc L 06/14/2024 2:00 AM [facility] Blood VENOUS BLOOD SPECIMEN / Unknown Venipuncture / Unknown 06/14/2024 1:03 AM EST 06/14/2024 1:08 AM EST Martinez Reynolds MD HEMATOLOGY ORDERABLE S [facility] [place] [address] * (ABNORMAL) Phosphorus (06/14/2024 1:03 AM EST) Phosphorus 1.5(L) 2.5 - 4.5 mg/dL 06/14/2024 1:46 AM EST [facility] Blood VENOUS BLOOD SPECIMEN / Unknown Venipuncture / Unknown 06/14/2024 1:03 AM EST 06/14/2024 1:08 AM EST Martinez Reynolds MD CHEMISTRY ORDERABLES Performing Organization Address [facility]/ZIP Co de Phone Number [facility] [place] [address] * Magnesium (06/14/2024 1:03 AM EST) Magnesium 0.90 0.69 - 1.07 mMol/L 06/14/2024 1:46 AM EST [facility] Blood VENOUS BLOOD SPECIMEN / Unknown Venipuncture / Unknown 06/14/2024 1:03 AM EST 06/14/2024 1:08 AM EST Martinez Reynolds MD CHEMISTRY ORDERABLES Performing Organization Address City/[facility]/ZIP Co de Phone Number [facility] [place] [address] * (ABNORMAL) Basic Metabolic Panel (06/14/2024 1:03 AM EST) Glucose 95 65 - 199 mg/dL 06/14/2024 1:49 AM EST [facility] Comment:Glucose Concentratio n >=200 mg/dL plus symptoms is consistent with Diabetes Mellitus. Blood Urea Nitrogen 14 10 - 20 mg/dL 06/14/2024 1:49 AM EST [facility] Creatinine 0.80 0.80 - 1.50 mg/dL 06/14/2024 1:49 AM EST [facility] Sodium 123(L) 135 - 145 mMol/L 06/14/2024 1:49 AM EST [facility] Potassium 3.7 3.5 - 5.0 mMol/L 06/14/2024 1:49 AM [facility] Chloride 91(L) 98 - 107 mMol/L 06/14/2024 1:49 AM [facility] Carbon Dioxide 19(L) 22 - 31 mMol/L 06/14/2024 1:49 AM [facility] Anion Gap 13 5 - 15 mMol/L 06/14/2024 1:49 AM [facility] Calcium 8.1(L) 8.5 - 10.5 mg/dL 06/14/2024 1:49 AM [facility] Est Glomerular Filtration Rate - Male 120 mL/min/1. 73 m?? 06/14/2024 1:49 AM [facility] Comment: This patient's estimated GFR [...] MD CHEMISTRY ORDERABLES [facility] [place] [address] * (ABNORMAL) Osmolality (06/14/2024 1:03 AM EST) Osmolality 259(L) 275 - 295 mOsm/kg 06/14/2024 1:40 AM [facility] Blood VENOUS BLOOD SPECIMEN / Unknown Venipuncture / Unknown 06/14/2024 1:03 AM EST 06/14/2024 1:08 AM EST Mariola Alfred MD CHEMISTRY ORDERABLES [facility] [place] [address] * T3 Total (06/14/2024 1:03 AM EST) Pathologist [facility] T3 Total 87 80 - 200 ng/dL 06/14/2024 1:46 AM EST [facility] Blood VENOUS BLOOD SPECIMEN / Unknown Venipuncture / Unknown 06/14/2024 1:03 AM EST 06/14/2024 1:08 AM EST Mariola Alfred MD CHEMISTRY ORDERABLES Performing Organization Address City/[facility]/ZIP Co de Phone Number [facility] [place] [address] * T4, free (06/14/2024 1:03 AM EST) Pathologist [facility] Free T4 1.37 0.93 - 1.70 ng/dL 06/14/2024 1:46 AM EST [facility] Blood VENOUS BLOOD SPECIMEN / Unknown Venipuncture / Unknown 06/14/2024 1:03 AM EST 06/14/2024 1:08 AM EST Mariola Alfred MD CHEMISTRY ORDERABLES Performing Organization Address City/[facility]/ZIP Co de Phone Number [facility] [place] [address] * Zonisamide level (06/14/2024 1:03 AM EST) [facility] Zonisamide Lvl November 17 10 - 40 mcg/mL 06/16/2024 9:22 PM EST [facility]F [facility] [place] Comment: ADDITIONAL INFORMATION This test was developed and its performance characteristics determined by [facility] in a manner consistent with CLIA requirements. This test has not been cleared or approved by the U.S. Food and Drug Administration. Blood VENOUS BLOOD SPECIMEN / Unknown Venipuncture / Unknown 06/14/2024 1:03 AM EST 06/14/2024 1:08 AM EST Narrative REF LAB [place] - 06/16/2024 9:22 PM EST Test Performed by: [facility] [address] [place] [address] Photo Engraver: Xavier Velásquez Ph.D.; CLIA# [id number] Mariola Alfred MD LAB SEND OUT ORDERAB LES REF LAB [place] [id number] [place] [address], [facility] documented in this encounter Visit Diagnoses Diagnosis [...] restart at 50% of previous rate. Call roundhouse worker if goal not achieved at maximum rate. [...] 2 mg, Intravenous, ONCE, 1 dose, On Jo Ann 06/17/24 at 0000, STAT Given 06/16/2024 11:46 PM [...] on Fri06/14/24 at 2100, Until Discontinued, Routine 203 (Given - Provider: Erik Dumont RN) 2016 (Given - Provider: Erik Dumont RN) heparin (porcine) (5,000 units/1 mL) subcutaneous injection 5,000 Units 5,000 Units, Subcutaneous, EVERY 12 HOURS SCHEDULED (2 times per day), First dose on Fri06/14/24 at 0200, Until Discontinued, Routine 0945 (Given - Provider: Bell Amezcua RN)2029 (Given - Provider: Erik Dumont RN) 0833 [...] Dumont RN) 0550 (Given - Provider: Erik Dumont RN) [...] Provider: Bell Amezcua, RN)1511 (Given - Provider: Blel Amezcua, RN) 2013 (Given - Provider: Erik [...] Vomiting documented in this encounter Care Teams Radio Interference Expert Relationship Specialty Start Date End Date Jimbo [place] [address] PCP - General Internal Medicine 06/18/24 documented as of this encounter
--- OUTSIDE RECORDS SUMMARY | 2024-07-30 03:08 | XMS_ITS | Encounter Summary ---
[place] [address] Care Team Providers Care Medical Staff Services Manager Name Role Phone Ren Vaz MD Primary Care Provider [phone] Reason for Visit * Auth/Cert (Routine) Specialty Diagnoses / Procedures Referred By Duyen bui Referred To Contact Diagnoses Hyponatremia hyponatremia Procedures ER Mariola Crisostomo MD [facility] [place] [address] [facility] Referral ID Status Reason Start Date Expiration Date Visits Re quested Visits Authorized [id number] 1 1 Encounter Details Date Type Department Care Team (Late st Contact Info) Description 2024 2:56 [place] [address] Akin Mcneill MD [facility] [place] [address] Anesthesia Record Procedure Summary Procedure Name Responsible [...] Adams CRNA; Removal Date: 06/15/24; Removal Time: 160906/15/24 1504 by Real Adams CRNA 06/15/24 1610 by Real Adams CRNA documented in this encounter Social History Tobacco Use Types Packs/Day Years Used Date Smoking Tobacco: Never Smokeless Tobacco: Never Alcohol Use Standard Drinks/Week Comments No 0 (1 standard drink = 0.6 oz pur e alcohol) [facility] Utilities Answer Date Recorded In the past 12 months has [employer], gas, oil, or water [employer] threatened to shut off services in your [...] time in the past 12 m [facility], were you homeless or living in [...] Procedure Summary Date: 06/15/24 Room / Location: [facility] ADULT RADIOLOGY / [facility] Anesthesia Start: 1456 Anesthesia Stop: 1626 [...] All Anesthesia Providers: Anesthesiologist: Akin Mcneill MD DERRICK BOAT LEVER OPERATOR: Real Adams CRNA Vitals Value Taken [...] Surgical History: Procedure Laterality Date PRO 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 Plan discussed with DERRICK BOAT LEVER OPERATOR. Anesthesia Screening documented in this encounter [...] 2% injection syringe Intravenous, PRN, Starting on 06/15/24 at 1502, Until 06/15/24 at 1627, Anesthesia Intra-op, Routine Given 2024 3:02 PM EST 50 mg neostigmine (Bloxiver) (1 mg/mL) injection Intravenous, PRN, Starting on 06/15/24 at 1605, Until 06/15/24 at 1627, Anesthesia Intra-op, Routine Given 2024 4:05 PM EST 5 mg ondansetron (pf) (Zofran) (2 mg/mL) injection Intravenous, PRN, Starting on e 06/15/24 at 1459, Until Fri06/15/24 at 1627, Anesthesia Intra-op, Routine Given 2024 2:59 PM EST 4 mg PHENYLephrine in NS (PF) (JEANNETTE-SYNEPHRINE) 0.8 mg/10 mL (80 mcg/mL) multi-dose injection Syringe Intravenous, PRN, Starting on e 06/15/24 at 1510, Until Fri06/15/24 at 1627, Anesthesia Intra-op, Routine Given 2024 3:36 PM EST 160 mcg Given 2024 3:24 PM EST 160 mcg Given 2024 3:10 PM EST 160 mcg propofoL (Diprivan) 10 mg/mL bolus injection (Anesthesia) Intravenous, PRN, Starting on 06/15/24 at 1502, Until 06/15/24 at 1627, Anesthesia Intra-op Given 2024 3:36 PM EST 40 mg Given 2024 3:02 PM EST 200 mg rocuronium (Zemuron) (10 mg/mL) multi-dose injection Intravenous, PRN, Starting on e 06/15/24 at 1548, Until Fri06/15/24 at 1627, Anesthesia Intra-op, Routine Given 2024 3:51 PM EST 20 mg Given 2024 3:48 PM EST 10 mg sodium chloride 0.9% infusion Intravenous, CONTINUOUS PRN, Starting on 06/15/24 at 1456, Until Fri06/15/24 at 1627, Anesthesia Intra-op New Bag 2024 2:56 PM EST documented in this encounter Care Teams Medical Staff Services Manager Relationship Specialty Start Date End Date Ren Vaz MD PCP - General Family Medicine 06/02/20 06/17/24 documented as of this encounter
--- OUTSIDE RECORDS SUMMARY | 2024-07-30 03:08 | XMS_ITS | Encounter Summary ---
Author Organization [facility] Address [facility] [place] [address] Care Team Providers Care Regional Owner Operator Truck Driver Name Role Phone Jimbo More Primary Care Provider + Reason for Visit * Reason Onset Date Comments Appointment 06/16/2024 Encounter Details Date Type Department Care Team (Late st Contact Info) Description 06/16/2024 [place]phone [place] [phone] Lauren Ruby MD [facility] [place] [address] Appointment Social History Tobacco Use Types Packs/Day Years Used Date Smoking Tobacco: Never Smokeless Tobacco: Never Alcohol Use Standard Drinks/Week Comments No 0 (1 standard drink = 0.6 oz pur e alcohol) [facility] Utilities Answer Date Recorded In the past 12 months has e [employer], gas, oil, or water [employer] threatened to shut off services in your [...] any time in the past 12 m [facility], were you homeless or living in a prison (including now)? No 2024 IPV Inpatient Questions [...] the discharge paperwork. Lauren Ruby MD P [facility] Leonard Jared, Please help me schedule a follow [...] on filedocumented in this encounter Care Teams Regional Owner Operator Truck Driver Relationship Specialty Start Date End Date Jimbo More PA Kerry [place] [address] PCP - General Internal Medicine 06/18/24 documented as of this encounter
--- OUTSIDE RECORDS SUMMARY | 2024-07-30 03:09 | XMS_ITS | Encounter Summary ---
[place] [address] Care Team Providers Care Scrap Burner Name Role Phone Ren Vaz MD Primary Care Provider [phone] Encounter Details Date Type Department Care Team (Late st Contact Info) Description 08/16/2021 Transcribe Orders [place]ill[place] [address] Gabriela Sandra Social History Tobacco Use Types [...] on filedocumented in this encounter Care Teams Scrap Burner Relationship Specialty Start Date End Date Ren Vaz MD PCP - General Family Medicine 06/02/20 06/17/24 documented as of this encounter
--- OUTSIDE RECORDS SUMMARY | 2024-07-30 03:09 | XMS_ITS | Encounter Summary ---
[place] [address] Care Team Providers Care Brattice Builder Name Role Phone Lc Venegas Primary Care Provider [phone] Encounter Details Date Type Department Care Team (Latest Contact Info) Description 07/15/2018 12:40 PM EST Laboratory Appointment Lab [address] [place] [address] Hypopituitarism Social History Tobacco Use Types Packs/Day [...] 25 OH 32 30 - 100 ng/mL [facility] Comment: Deficient <10 ng/mL Insufficient 10 to 29 ng/mL Sufficient 30 to 100 ng/mL Potential Intoxication >100 ng/mL According to the [place] National Osteoporosis Foundation, Vitamin D concentrations >30 ng/mL are sufficient to protect bone health. ??The National Kidney Foundation has similarly stated that patients with Vitamin D concentrations <30ng/mL should be considered to be insufficient or deficient. http://[employer]/nkf-guidelines http://[employer]/nejm-VitD The [employer] i[employer] Vitamin D Immunoassay detects both 25-OH Vitamin D2 and 25-OH Vitamin D3, but only a total Vitamin D concentration is reported. Blood specimen (specimen) 07/15/2018 12:49 PM EST 07/16/2018 7:49 AM EST Narrative Resulting Agency Comment Spec In Lab Christopher Hess MD CHEMISTRY ORDERABLES Performing Organization Address City/State/[facility] Co de Phone Number [facility] [place] [phone] * (ABNORMAL) Basic Metabolic Panel (non-fasting) (07/15/2018 12:49 PM EST) Glucose 105 65 - 199 mg/dL [facility] Comment:Diabetes: >=200 mg/d L plus symptoms Blood Urea Nitrogen 16 10 - 20 mg/dL [facility] Creatinine 0.83 0.80 - 1.50 mg/dL [facility] Sodium 138 135 - 145 mmol/L [facility] Potassium 3.9 3.5 - 5.0 mmol/L [facility] Comment: Please note: ??Patients with WBC >100,000 may have falsely elevated Potassium levels. ??For accurate Potassium quantification in these patients send serum separator tube (gold top) for subsequent determinations. ??Contact the Clinical Chemistry Laboratory if there are any questions. Chloride 104 98 - 107 mmol/L [facility] Carbon Dioxide 19(L) 22 - 31 mmol/L [facility] Anion Gap 15 5 - 15 mmol/L [facility] Calcium 9.2 8.5 - 10.5 mg/dL [facility] Est Glomerular Filtration Rate 120 >=60 mL/min/1. 73 m?? [facility] Comment: The eGFR was calculated using the CKD-EPI equation. As with all creatinine based estimates of kidney function, eGFR values calculated with the CKD-EPI equation are not accurate in patients with acute kidney failure, extremes of body mass or the acutely ill. http://[employer]/[facility] ARROWnkf eGFR 139 >=60 mL/min/1. 73 m?? [facility] Comment: The eGFR was calculated using the CKD-EPI equation. As with all creatinine based estimates of kidney function, eGFR values calculated with the CKD-EPI equation are not accurate in patients with acute kidney failure, extremes of body mass or the acutely ill. http://[employer]/DHMCnkf Blood specimen (specimen) 07/15/2018 12:49 PM EST 07/15/2018 12:55 PM EST Narrative Resulting Agency Comment Spec In Lab Christopher Hess MD CHEMISTRY ORDERABLES [facility] [place] [address] * T4, free (07/15/2018 12:49 PM EST) Free T4 1.24 0.93 - 1.70 ng/dL [facility] Blood specimen (specimen) 07/15/2018 12:49 PM EST 07/15/2018 12:55 PM EST Narrative Resulting Agency Comment Spec In Lab Christopher Hess MD CHEMISTRY ORDERABLES Performing Organization Address City/[facility]/ZIP Co de Phone Number [facility] [place] [address] documented in this encounter 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
--- OUTSIDE RECORDS SUMMARY | 2024-07-30 03:09 | XMS_ITS | Encounter Summary ---
[place] [address] Care Team Providers Care Certified Medical Transcriptionist Name Role Phone Lc Venegas Primary Care Provider [phone] Encounter Details Date Type Department Care Team (Late st Contact Info) Description 06/11/2018 Telephone [place] [phone] Mariola Gipson Social History Tobacco Use Types [...] filedocumented in this encounter Care Teams Certified Medical Transcriptionist Relationship Specialty Start Date End Date Lc Venegas PA [address] [place] [address] PCP - General General Internal Medicine 09/03/17 documented as of this encounter
--- OUTSIDE RECORDS SUMMARY | 2024-07-30 03:09 | XMS_ITS | Encounter Summary ---
Author Organization [facility] Address [facility] [place] [address] Care Team Providers Care Cosmetic Sales Consultant Name Role Phone Chadjonathan Lc YEE Primary Care Provider [phone] Encounter Details Date Type Department Care Team (Late st Contact Info) Description 09/09/2018 Telephone [place] [phone] Thuy Chu RN Social History Tobacco Use [...] - 09/09/2018 11:06 AM EST [place] [facility] [place] for [place] because pt is really sick today. R/c and lm for Lala to call back. Rcvd call back from Lala. Pt vomited this AM, not peeing consistently, lips blue, inaccurate temp readings (widely variable). She is taking pt to [facility] ED in [facility] (this call taking place at 11:14) and Lala would like Dr Thomson to call the ED there to consult and advise. Endocrinology Telephone Note: Called [facility] ED MD Spoke with MD there, warned them about his adrenal insufficiency and advised to stress dose if there is any concern whatsoever for hypOtension. If sodium derangements are present, will need to be admitted possibly for DDAVP adjustments. Provided my pager #. Mariola Thomson MD PGY-4 [facility] Endocrinology Fellow Pager #[phone] documented in this encounter Plan of Treatment Not on file documented as of this encounter Visit Diagnoses Not on filedocumented in this encounter Care Teams Cosmetic Sales Consultant Relationship Specialty Start Date End Date Lc Venegas PA [address] [place] [address] PCP - General General Internal Medicine 09/03/17 documented as of this encounter
--- OUTSIDE RECORDS SUMMARY | 2024-07-30 03:09 | XMS_ITS | Encounter Summary ---
Author Organization [facility] Address [facility] [place] [address] Care Team Providers Care Track Repair Person Name Role Phone Lc Venegas Primary Care Provider [phone] Encounter Details Date Type Department Care Team (Late st Contact Info) Description 09/11/2018 Telephone [place] [address] Mariola Thomson MD [facility] [place] [address] Social History Tobacco Use Types Packs/Day Years [...] Note: Msg from Jessika Woodall NP at [facility], left msg that pt is doing well, possible aspiration pneumonia. Would like call back on how to proceed with steroid dosing and taper. [phone] and have hospitalist paged. Spoke with hospitalist who reported that pt was d/c Tripled AM dose, doubled afternoon dose for first day. 60mg -->40mg 2 days in the AM, 15mg in the afternoon 2 days 20mg 10mg was not febrile at d/c, back to baseline off acetaminophen Suspect aspiration pna Mariola Thomson MD PGY-4 [facility] [place] [place] Endocrinology Fellow Pager #[phone] documented in this encounter Plan of Treatment Not on file documented as of this encounter Visit Diagnoses Not on filedocumented in this encounter Care Teams Track Repair Person Relationship Specialty Start Date End Date Lc Venegas PA [address] [place] [address] PCP - General General Internal Medicine 09/03/17 documented as of this encounter
--- OUTSIDE RECORDS SUMMARY | 2024-07-30 03:09 | XMS_ITS | Encounter Summary ---
[place] [address] Care Team Providers Care Crtt Name Role Phone Ren Vaz MD Primary Care Provider [phone] Reason for Visit * Auth/Cert (Routine) Specialty Diagnoses / Procedures Referred By Duyen bui Referred To Contact Diagnoses Hyponatremia hyponatremia Procedures ER Mariola Crisostomo MD [facility] [place] [address] [facility] Referral ID Status Reason Start Date Expiration Date Visits Re quested Visits Authorized [id number] 1 1 Encounter Details Date Type Department Care Team (Late st Contact Info) Description 2024 3:10 PM EST - 2024 4:30 [place] [id number] RESOURCE, ANESTHESIA-COSTILLA None MRI WITH ANESTHESIA (WRVU *) Social [...] any time in the past 12 m [facility], were you homeless or living in a senior care (including now)? No 2024 IPV Inpatient Questions [...] needed. Per discussion with Madeleine from the fdc where he lives 06/17. She notes his [...] [facility] following witnessed tonic-clonic seizure at [facility], found to have sodium of 122. On [...] Seizures: 2 min tonic-clonic seizure witnessed at fdc, 30 sec seziure at [facility] [...] 97 % No results for input(s): PHART, WGP7BSV, PO2ART, OUP1ZPD in the last 168 hours. I/O: Date 06/21/24 0700 - 06/22/24 0659 Shift 4452-2016 0139-3998 5590-0339 24 Hour Total INTAKE P.O. 354 354 [...] Procedure Component Value Units Date/Time Blood culture [[id number]] (Abnormal) Collected: 06/18/24 190 Lab Status: Preliminary [...] a previously preliminary verified report. Blood culture [[id number]] Collected: 06/18/241899 Lab Status: Preliminary result Specimen: [...] Center 07/20/2024 1:30 PM Eron Barriga MD [facility] [id number] * Attachments The following attachments cannot be sent through Care Everywhere. * Hyponatremia (Bahamian) documented in this encounter Medications at Time [...] spent >30 minutes (Day of Discharge Code 62999) involved in the final examination of the patient, discussion of the hospital stay, instructions for continuing care to all relevant caregivers, and preparation of discharge records, prescriptions and referral forms. Plans Discharge to fdc Follow-up scheduled with PCP and neurosurge Please [...] appropriate/able. Sunitha Sanderson PT, DPT, NCS Pager: [phone] Physical Therapy Inpatient Rehabilitation Department * Martinez [...] CREATININE 0.75* 0.86 -- 1.05 Recent Labs 06/20/243 06/19/24 0410 06/18/24 0126 CALCIUM 9.1 9.4 9.3 MAGNESIUM 0.76 0.74 0.84 PHOS 3.7 5.0* 5.7* Recent Labs 06/20/245206/19/240 06/18/24 0126 AST 65* 57* 52* ALT 80* 76* 61* ALKPHOS 128 133* 118 BILITOT <0.2 0.2 0.3 BILIDIR <0.2 <0.2 <0.2 No results for input(s): TROPONINT, CK in the last 168 hours. No results for input(s): PHART, ESW5TZL, PO2ART, WKO5LFP in the last 168 hours. Microbiology: None [...] needed. Per discussion with Madeleine from the fdc where he lives 06/17. She notes his [...] Code Status: FULL - Dispo: Back to fdc when Martinez Kain Reynolds MD Hospital medicine Service: 2900 06/20/2024 [...] 12.9* PLATELET 297 262 301 Recent Labs 06/19/240 06/18/24 1222 06/18/24 0126 06/17/24 0623 06/17/24 [...] 168 hours. No results for input(s): PHART, JNK5PNN, PO2ART, DDL7UJT in the last 168 hours. Microbiology: None [...] needed. Per discussion with Madeleine from the fdc where he lives 06/17. She notes his [...] Code Status: FULL - Dispo: Back to fdc when MR Martinez Reynolds MD [facility] medicine Service: 2900 06/19/2024 * Shola Morris MD - 06/19/2024 10:15 AM EST Images from the original note were not included. Endocrinology Follow up Note Name: Abram Burgos Date: 06/19/24 Room: [address] [place] [address] Reason for Consult: panhypopituitarism HPI Abram Burgos [...] access to additional DDAVP dosing at his fdc after speaking with Jennifer from the fdc. Possibility of him having access to additional water/fluid intake over the last few weeks. Bettina said that this is possible given there is often rn wound care turnover and not everyone is up to date on what is recommended. He is on a 3.5 L restriction per day at the fdc. Patient was continued on home dose of [...] - will need follow up with his Night Order Selector, Dr. Zaidi or Dr. Day Littlejohn at discharge Endocrinology will sign off at this time but are available for any questions or concerns during hisremaining hospital stay. Thank you for allowing us to participate in the care of this patient. Discussed with Dr. Morris. Crista Gill MD. 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 Meeting his physical comfort needs such as pain physical discomfort such as itching will also be important. 06/18/2024-Abram has been agitated overnight and has been un directable at times. Per collateral from his fdc, this is a baseline that has been going on for many months. On learning of his fdc regimen, not reflected in surescripts, we will [...] - start 600mg BID, titrate to MDD 0550-6737 in divided doses - monitor for increased respiratory secretions -discontinue depakote Patient on IEA Status? IEA: NO, patient is not an on IEA. Awaiting voluntary psychiatric placement but safety concerns exist if patient decides to leave and will require urgent psychiatric assessmentprior to discharge or leaving AMA. Recommendations were communicated to primary assembler steam and gas turbine Dr. Johnson. H Samson Judd MD 06/19/2024 [...] Minimal/Low [] Low [] Minimal/Low [] Low 84476 [] Moderate [] Moderate [] Moderate [] Moderate 00410 [] High [] High [] High [] High 09557 Final Coding Determination: Moderate * Pamela Johnson [...] 168 hours. No results for input(s): PHART, HJC6JXD, PO2ART, WJI1LFU in the last 168 hours. Microbiology: None [...] needed. Per discussion with Madeleine from the fdc where he lives 06/17. She notes his [...] Code Status: FULL - Dispo: Back to fdc when Pamela Emerald DO [facility] medicine Service: 2900 06/18/2024 * [...] not medically ready but will return to fdc when MR. [facility] [address] [place] [address] [place], [place] [id number] Spoke with Jennifer Woods RN. Updated not anticipated discharge until next week. Will submit referralto [facility] to update facility with clinicals. Confirmed [facility] provides transport. * Sunitha Sanderson PT - 06/18/2024 10:49 AM EST Physical Therapy Contact Note 06/18/24 1059 Evaluation & Treatment Document Type contact Total Minutes, Physical Therapy 0 Comment, Session Not Performed Checked in with nursing, pt awaiting stat HCT for somnolence. PT will defer and follow up as appropriate/able. Sunitha Sanderson PT, DPT, NCS Pager: [phone] Physical Therapy Inpatient Rehabilitation Department * Zoë [...] mg at 22:55. His medications from his fdc were shared by their staff, with his home medicationregimen being 200 XL seroquel nightly and 100 mg BID with 100 mg PRN daily and hetlioz 20 mg qHS and melatonin nightly. Per Dr. Benítez in conversation with Madeleine from his fdc, Abram goes from 0-100 very quickly and will throw things and become agitated in his home setting, and that this has been going on for many months now. On interview this morning: Abram is lying in bed under the covers having his vitals checked. He denies pain, thoughts of hurting himself,f and denies needing anything at this time. 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 Meeting his physical comfort needs such as pain physical discomfort such as itching will also be important. 06/18/2024-Abram has been agitated overnight and has been un directable at times. Per collateral from his fdc, this is a baseline that has been going on for many months. On learning of his fdc regimen, not reflected in surescripts, we will [...] leaving AMA. Recommendations were communicated to primary assembler steam and gas turbine Dr. Johnson. Jaja Chin MD 06/18/2024 Coding [...] Minimal/Low [] Low [] Minimal/Low [] Low 65200 [] Moderate [] Moderate [] Moderate [] Moderate 92497 [] High [] High [] High [] High 22793 Final Coding Determination: Moderate Associated attestation - [...] it as a standing medication at his fdc). Given his mild increase in LFTs we [...] Brittny Hanna MD Department of Psychiatry Pager #[phone] * Pamela Johnson, DO - 06/17/2024 5:30 [...] 168 hours. No results for input(s): PHART, NIA8UMC, PO2ART, DAZ3IOL in the last 168 hours. Microbiology: None [...] 3L daily. Spoke to Madeleine from the [facility] where he lives. She notes his baseline fluid goal was 3.5L (1.5). Perhaps this was too much fluid for [...] Code Status: FULL - Dispo: Back to fdc when MR Pamela Corbin DO [facility] medicine Service: 2900 06/17/2024 * [...] Surgical History: Procedure Laterality Date PRO OPEN HIGHWAY ENGINEER FIX ACETABULAR FX Left 09/04/2017 @OPEN TREATMENT, ACETABULAR FX (WRVU 25.41) performed by Amy Lance MD at [facility] MAIN OR Social History: Patient lives in a fdc. Home Setup: accessible DME: none Baseline ADL/Mobility: [...] from EOB: min assist x 2 with AGRICULTURAL SERVICE TECHNICIAN Pt able to side step to L side ~4-5 steps with min assist x 2 using AGRICULTURAL SERVICE TECHNICIAN, cues provided for step initiation and sequencing Stand to sit x 2: min assist x 2 with AGRICULTURAL SERVICE TECHNICIAN Sit to supine: mod assist x [...] minimal side steps to L side with AGRICULTURAL SERVICE TECHNICIAN. Unsure of pt's most recent functional status but anticipate pt will be able to return to his fdc pending level of assistance they can provide. Pt will benefitfrom ongoing therapeutic interventions to achieve pt's and therapy goals. Anticipated Discharge Disposition (OT): other (see comments) (return to fdc) Equipment Recommendations: Equipment Needs Upon Discharge (OT): [...] Minutes, Occupational Therapy: 28 (09:42-10:10 SCx2) Pager: [phone] TERRELL Isabel/Ramone Occupational Therapy Rehabilitation Department * [...] EEG CONTINUOUS MONITORING INPATIENT [address] ENGINEER FIX ACETABULAR FX Left 09/04/2017 @OPEN TREATMENT, ACETABULAR FX (WRVU 25.41) performed by Amy Lance MD at [facility] MAIN OR Social History: Home setup: Pt resides in an accessible fdc in [facility] Baseline Mobility/Prior level [...] to swing bed rehabilitation vs return to fdc when medically stable, pending functional progress while in the hospital and level of care available at fdc. Pt will benefit from ongoing physical therapy to address the above impairments and facilitate return to PLOF. Discharge Recommendations: Based on the current findings, Anticipated Discharge Disposition (PT): swing bed rehabilitation facility, adult foster care/fdc when medically ready for hospital discharge. Plan: [...] (admitted for seizures; complex PMH; lives in fdc) Examination of body system impairments, functional limitations and behaviors, and/or participation restrictions. Addressing 1-2 elements Addressing 3 + elements Addressing 4 + elements X Clinical presentation: See assessment above. Stable/Uncomplicated Evolving/Fluctuating Symptoms Unstable/Unpredictable X Clinical decision making of moderate complexity based on pt's functional performance as outlined inthis evaluation. Time IN / OUT: 7159-3954 Total Minutes, Physical Therapy: 30 (eval). Ludivina Stover PT DPT 06/16/2024 Pager: [phone] Physical Therapy Inpatient Rehabilitation Department * Christopher [...] seizures in the setting of hyponatremia and BIOSTATISTICIAN structural abnormalities. This most likely provoked by new hyponatremia rather than chronic structural brain disease. Our working theory is hyponatremia provoked by issues with fluid restriction at his fdc, and it is so far improving at [...] minimumof two midnights or is on the [facility] inpatient only procedure list (status C) due to: monitoring of fluid status given an inability to regulate fluid balance and the need for administration or restriction of fluids and breakthrough seizures * Lauren Ruby MD - 06/16/2024 6:54 AM EST [facility] NEUROSURGERY PROGRESS NOTE ID: Abram Burgos 34 [...] admit with jazmín of 122 while at [facility] thus far corrected to 131). Therefore no acute neurosurgical intervention warranted. We will follow up with the patient and hisfamily/legal guardian outpatient to discuss management options. We are signing off for now, rest ofcare per primary, but remain available at pager [phone] should further questions/concerns arise. Plan: -No acute neurosurgical intervention warranted -We are signing off now, but will follow up outpatient with patient/family to discuss management options -Rest of care per primary including frequency of neuro checks For questions please call NSGY pager [phone] Lauren Ruby MD 06/16/2024 7:22 AM Clinical [...] with him tomorrow. Maxine Silverio, PT Pager [phone] * Christopher Stanley MD - 2024 8:13 [...] seizures in the setting of hyponatremia and BIOSTATISTICIAN structural abnormalities. This most likely provoked by new hyponatremia rather than chronic structural brain disease, but as yet uncertain. Our working theory is hyponatremia provoked by issues with fluid restriction at his fdc, and it is so far improving at [...] O2 Device RA Maxine Silverio, PT Pager [phone] * Wilder Davis - 06/14/2024 11:19 AM [...] adjusted based on our knowledge. Was at fdc when he had ~2 minute tonic clonic seizure. Presented to [facility] where he was found to be hyponatremic. Given hypertonic saline and ativan and transferred to [facility]. Physical Exam Last value Range last [...] seizures in the setting of hyponatremia and BIOSTATISTICIAN structural abnormalities. His hyponatremia is likely mixed: [...] minimumof two midnights or is on the [facility] inpatient only procedure list (status C) due to: monitoring of fluid status given an inability to regulate fluid balance and the need for administration or restriction of fluids and seizur * Marline Calderon, CLINICAL TRIALS NURSE - 06/14/2024 6:42 AM EST Critical Care Progress Note Abram Burgos : 1990 Admitted: 06/14/2024 12:57 AM Hospital day: 0 ICU day: ID: Abram Burgos is a 33 y.o. 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 He wastransferred to [facility] where sodium of 122 was treated with 50cc 3%NaCl and Neutra-Phos. No evidence of seizure since arrival. Neurology, neurosurgery, and endocrine teams were consulted. Hospital/ICU course has been significant for: #Hyponatremia #Seizure Activity (prior to arrival at [facility]) #possible enlarging lesion in R middle cranial fossa 24-hour events: -Transferred to [facility] -Na treated with 3% (once at [...] Line): -- No results for input(s): PHART, RCA9JSN, PO2ART, EFR1GMN in the last 168 hours. Intake/Output Summary [...] clear culprit meds on his list.At his fdc he is maintained on a 3.5L fluid [...] Lizeth Calderon APRN June 14, 2024 Pager #[phone] Critical Care Green Team documented in this [...] with seizures. The patient was transferred from [facility] from a fdc ([facility]) for a seizure. He had [...] [facility]ICAL CENTER following witnessed tonic-clonic seizure at [facility], found to have sodium of 122. On [...] Seizures: 2 min tonic-clonic seizure witnessed at fdc, 30 sec seziure at [facility] [...] EEG CONTINUOUS MONITORING INPATIENT [address] ENGINEER FIX ACETABULAR FX Left 09/04/2017 @OPEN TREATMENT, ACETABULAR FX (WRVU 25.41) performed by Amy Lance MD at [facility] MAIN OR Social History: Social History Socioeconomic [...] file Social History Narrative Lives at the [facility], moved in 11/07/2014. Social Determinants of Health [...] 06/14/2024 4:02 AM) Result Value WORKSTATION ID [id number] Narrative EXAMINATION: XR CHEST ONE VIEW CLINICAL [...] who have questions please contact the health rn wound care that requested your imaging first. Electronically signed by: Beverley Valencia MD, [facility] ([phone]), at 06/14/2024 4:32 AM Request For 2nd Read CT Head (Exam End: 06/14/2024 9:46 AM) Result Value WORKSTATION ID [id number] Narrative EXAMINATION: REQUEST FOR 2ND READ CT HEAD CLINICAL HISTORY: New seizure with known mass, ?enlargening. Presenting with seizure; Sending Institution [facility]; Date of exam 20240613; I believe a reinterpretation of this exam may alter care of Patient. Yes TECHNIQUE: Reinterpretation of noncontrast CT head performed at [facility] 06/13/2024 at 2143 hours COMPARISON: Noncontrast [...] who have questions please contact the health rn wound care that requested your imaging first. Electronically signed by: Galen Balderas [facility] ([phone]), at 06/14/2024 10:41 AM MRI Brain wwo Contrast (Generic) (Exam End: 2024 4:20 PM) Result Value WORKSTATION ID [id number] Narrative EXAMINATION: MRI BRAIN WWO CONTRAST (GENERIC) [...] clip with its blades near the right DIRECTOR OF INSTITUTIONAL RESEARCH. Impression Homogeneously enhancing 3.5 cm mass along [...] who have questions please contact the health rn wound care that requested your imaging first. Electronically signed by: Raudel Heredia MD, [facility] ([phone]), at 2024 4:46 PM ASSESSMENT and PLAN: [...] Tim Yuen MD Internal Medicine PGY-2 Pager: [phone] 06/16/24 Associated attestation - Channing Ballesteros MD [...] with seizures. HPI: Per report presented to [facility] from a fdc ([facility]) for seizure. He has been in his usual state of health although did have covid within the past month. He has been taking his medications as prescribed although due to behavioral troubles and problems sleeping some of his medications have been altered recently. This afternoon at his fdc he had a two minute whitnesses tonic [...] and a dose (unknown amount) of desmopressin. [facility] was contacted for transfer. Neuro critical [...] Surgical History: Procedure Laterality Date PRO OPEN HIGHWAY ENGINEER FIX ACETABULAR FX Left 09/04/2017 @OPEN TREATMENT, ACETABULAR FX (WRVU 25.41) performed by Amy Lance MD at [facility] MAIN OR No family history on file. Social History: Lives in a fdc. Ventilator Settings: Room air. Physical Exam: General: [...] 3 wbc, hgb, hct plt Recent Labs 06/14/24102 WBC 10.38* HGB 12.2* HCT 35.5* PLATELET [...] NAKIA Blair June 14, 2024 Critical Care [place] Team (pager [phone]) Dr. Alfred is the attending of record for this admission documented in this encounter Procedure Notes * Joey Moura MD - 06/18/2024 1:58 PM EST [facility] Department of Neurology Inpatient Routine EEG Report [...] channel digitized electroencephalogram was performed in the [facility] Clinical Neurophysiology Laboratory. The 10/20 international system of electrode placement was used and bipolar and referential electrode montages were recorded. In addition to EEG the patient was monitored for EKGand lateral/vertical eye movements. Video was recorded during the session. CHIEF ENGINEER PRODUCTION'S REPORT: Performed by: Ingrid Shi Patient was [...] agree with the report. Rosa Quezada MD [facility] Neurology * Camron Gee MD - 2024 5:19 PM ESTProcedure(s): EEG CONTINUOUS MONITORING INPATIENT [facility] Department of Neurology Inpatient Continuous Video EEG Tail Report Name of the Patient: Abram Burgos Date of : 1990 Patient Location: [facility] Date of Service: 2024 Referring [...] EKG. Video was recorded during the session. CHIEF ENGINEER PRODUCTION'S REPORT: Performed by: At the onset of [...] seen during this epoch. Rashard Navarrete MD PRODUCT/DEVICE TECHNOLOGIST Fellow, PGY-5 2024 EPILEPSY ATTENDING ADDENDUM - I reviewed the EEG with the PRODUCT/DEVICE TECHNOLOGIST/Epilepsy fellow, and I agree with the interpretation as documented. Camron Gee MD, PhD Professor of Neurology [facility] Epilepsy [place] Clinical Neurophysiology Laboratory [facility] * Rashard Navarrete MD - 06/14/2024 3:33 [...] Navarrete MD - 06/14/2024 3:03 PM EST [facility] Department of Neurology Inpatient Continuous Video EEG [...] EKG. Video was recorded during the session. CHIEF ENGINEER PRODUCTION'S REPORT: Performed by: At the onset of [...] seen during this epoch. Rashard Navarrete MD PRODUCT/DEVICE TECHNOLOGIST Fellow, PGY-5 06/14/2024 Associated attestation - Camron Gee MD - 2024 1:03 PM EST EPILEPSY ATTENDING ADDENDUM - I reviewed the EEG with the PRODUCT/DEVICE TECHNOLOGIST/Epilepsy fellow, and I agree with the interpretation as documented. Given the lack of evidence for underlying epileptic seizures from this recording of ~24 hours, we'd recommend considering discontinuing the CEEG study. We are available to discuss this matter with the Neurology consultation and inpatient bravo team. Camron Gee MD, PhD Professor of Neurology [facility] Epilepsy Center Clinical Neurophysiology Laboratory [facility] documented in this encounter Miscellaneous Notes * Plan of Care - Bell Amezcua RN - 06/21/2024 3:04 PM EST Abram Burgos discharged to senior living by care facility's vehicle with staff from fdc. All belongings sent with patient. ALLISON removed, [...] Patient is medically ready for discharge to [address] [place], [place] [address] . Surveillance Supervisor: Kemi Noriega at [facility] will be picking him up. I also spoke with Bettina Burgos Guardian to give her updates. Needs for Transition of Care: Plan for discharge is: Alf Facility / Swing Outpatient Agency/Support Group Needs: [facility] Agency Referrals & Follow-up Care: Transportation: Surveillance Supervisor: Kemi Noriega at [facility] will be picking him up. I also spoke with Bettina Aubrey his Guardian to give her updates Wheelchair van/Ambulance? No Functional status prior to admission: Assistive Equipment and Assistive Person Home Environment: Others in the home: other (see comments) (Lives in a fdc.). Current LivingArrangements: fdc. Accessibility Concerns:Easy access to his surroundings. Fully [...] plan was formulated with input from patient, Surveillance Supervisor: Kemi Noriega at [facility] will be picking [...] better mood today, less agitation. Visitor from fdc. Downgraded to med surg. PLAN MOVING FORWARD: [...] been altered recently. This afternoon at his fdc he had a two minutewitnessed tonic clonic [...] nightly to twice daily dosing at his fdc, which she had not been on before. 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 Sister reports that he has had low sodium in the past, she believes in the 120s or lower, but has not triggered seizures in the past. Patient has previously been seen at [facility] in 2014. His deficits at that time included left hemiparesis, cortical blindness, urine incontinence, dysarthria and gait disorder. 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 According to [facility] documentation, he had a spell at his fdc that was concerning for seizure one month prior to his visit. BG at the time was in the 40s and he was started on Keppra in addition to Zonegran. 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 Thank you for letting us participate in the care of this patient. If you are a health care provider and have any questions regarding this report, please contact the number below. For patients who have questions please contact the health rn wound care that requested your imaging first. Electronically signed by: Beverley Valencia MD, [facility] ([phone]), at 06/14/2024 4:32 AM Request For 2nd Read CT Head (Exam End: 06/14/2024 9:46 AM) Result Value WORKSTATION ID [id number] Impression Hypoattenuating, likely cystic mass appears to [...] who have questions please contact the health rn wound care that requested your imaging first. Electronically signed by: Galen Balderas [facility] ([phone]), at 06/14/2024 10:41 AM MRI Brain wwo Contrast (Generic) (Exam End: 2024 4:20 PM) Result Value WORKSTATION ID [id number] Impression Homogeneously enhancing 3.5 cm mass along [...] who have questions please contact the health rn wound care that requested your imaging first. Electronically signed by: Raudel Heredia MD, [facility] ([phone]), at 2024 4:46 PM Assessment: Abram Burgos [...] Holland MD Neurology, PGY-3 Consult Neurology Service #[id number] 06/18/2024 Associated attestation - Colten Wilson MD [...] Qtc within normal limits. Staff member from fdc came to visit. Scheduled medications adjusted. PLAN [...] focal atrophy Arm flexion 5/5 b/l Hand teacher vocational training 5/5 b/l Able to wiggle toes Reflexes: [...] Neurology to sign off Americo Flores, MS4 [facility] * Care Management - Raudel [...] Guardian Name: Bettina Burgos-sister Guardian Contact Information: [phone] Financial Decision Maker: Guardian Guardianship paperwork on file: 1 Guardian Name: see above Guardian Contact Information: see above Functional status prior to admission: Assistive Equipment and Assistive Person Home Environment: Others in the home: other (see comments) (Lives in a fdc.). Current LivingArrangements: fdc. Accessibility Concerns: Easy access to his surroundings. [...] Recommendation: swing bed rehabilitation facility, adult foster care/fdc with to be determined Last Occupational Therapy Recommendation: adult foster care/fdc (pending on progress) with to be determined Plan for discharge is: Alf Facility / Swing Transition Plan for After Rehab: [facility] Outpatient Agency/Support Group Needs: [facility]PC Agency Choices: [facility] Agency Referrals: Current referrals placed to: N/A Transportation: Barriers to discharge: Global: Discharge planning Global Comment: Coordination of returning to fdc Items to Consider for Discharge: Pt's sister and guardian Bettina Burgos has given permission for the following people from his [facility] to receive updates: Lives in [facility]) -Kemi Noriega -FPC counter caser -Ladonna Tate -Jennifer Woods -FPC RN CM Interventions today: CM is notified [...] hx patient anticipated to go return to [facility] with possible VNA services on top what is already offered. The patient's sister and guardian Bettina Burgos as assisting with dispo coordination. CM will continue to monitor progress, follow for continuity of care, and assist with discharge planning while patient is inpatient status on current unit. Investigate address and contact information for [facility] ([facility]) and place referral so they have updated information to review to assist in dispo Review team recommendations and place referrals for VNA if medical status changes after treatments/interventions. Monitor and update referrals Anticipated Date of Discharge: 06/18/2024 Raudel Tate RN Case Teaching Assistant of Care Management * Consult Note - Kellen Braxton MD - 06/17/2024 5:45 AM EST Images from the original note were not included. Neurology Inpatient Consult Note - 06/17/2024 Admit date: 06/14/2024 Attending: Channing Ballesteros MD ID: Abram Judy Burgos is a 34 y.o. male with [...] been altered recently. This afternoon at his fdc he had a two minutewitnessed tonic clonic [...] nightly to twice daily dosing at his fdc, which she had not been on before. 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 Sister reports that he has had low sodium in the past, she believes in the 120s or lower, but has not triggered seizures in the past. Patient has previously been seen at [facility] in 2014. His deficits at that time included left hemiparesis, cortical blindness, urine incontinence, dysarthria and gait disorder. 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 According to [facility] documentation, he had a spell at his fdc that was concerning for seizure one month prior to his visit. BG at the time was in the 40s and he was started on Keppra in addition to Zonegran. [facility] neurologist planned for discontinuation of Keppra [...] Daily Tim Yuen MD 81 mg at 06/16/24922 atorvastatin (Lipitor) tablet 40 mg 40 mg [...] EEG CONTINUOUS MONITORING INPATIENT [address] ENGINEER FIX ACETABULAR FX Left 09/04/2017 @OPEN TREATMENT, ACETABULAR FX (WRVU 25.41) performed by Amy Lance MD at [facility] MAIN OR Allergies: Allergies Allergen Reactions Lopid [...] % SpO2: [91 %-100 %] I/O: 06/16 07 - 06/17 07 In: 1170 [P.O.:1160; I.V.:10] [...] 06/14/2024 4:02 AM) Result Value WORKSTATION ID [id number] Impression Low lung volumes with crowding of bronchovascular markings without radiographically evident acute cardiopulmonary process. Thank you for letting us participate in the care of this patient. If you are a health care provider and have any questions regarding this report, please contact the number below. For patients who have questions please contact the health rn wound care that requested your imaging first. Electronically signed by: Beverley Valencia MD, [facility] ([phone]), at 06/14/2024 4:32 AM Request For 2nd Read CT Head (Exam End: 06/14/2024 9:46 AM) Result Value WORKSTATION ID [id number] Impression Hypoattenuating, likely cystic mass appears to [...] who have questions please contact the health rn wound care that requested your imaging first. Electronically signed by: Galen Balderas [facility] ([phone]), at 06/14/2024 10:41 AM MRI Brain wwo Contrast (Generic) (Exam End: 2024 4:20 PM) Result Value WORKSTATION ID [id number] Impression Homogeneously enhancing 3.5 cm mass along [...] who have questions please contact the health rn wound care that requested your imaging first. Electronically signed by: Raudel Heredia MD, [facility] ([phone]), at 2024 4:46 PM Assessment: Abram Burgos is a 34 y.o. 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 Patient has had 2 generalized [...] Holland MD Neurology, PGY-3 Consult Neurology Service #[id number] 06/17/2024 ATTENDING NOTE: I reviewed the pertinent [...] tends to do much better at his fdc than the hospital environment as he is [...] EEG CONTINUOUS MONITORING INPATIENT [address] ENGINEER FIX ACETABULAR FX Left 09/04/2017 @OPEN TREATMENT, ACETABULAR FX (WRVU 25.41) performed by Amy Lance MD at [facility] MAIN OR Allergies: Allergies Allergen Reactions Lopid [...] focal atrophy Arm flexion 5/5 b/l Hand teacher vocational training 5/5 b/l Able to wiggle toes Reflexes: [...] will continue to follow. Americo Flores, MS4 [facility] * Consult Note - Kellen Braxton MD [...] been altered recently. This afternoon at his fdc he had a two minutewitnessed tonic clonic [...] and incoherent, barely speaking over this past Thanks. She states he was getting a new sleep medication starting in February, which appears to be Rozerem 8 mg nightly. He was also switched from Seroquel nightly to twice daily dosing at his fdc, which she had not been on before. 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 Sister reports that he has had low sodium in the past, she believes in the 120s or lower, but has not triggered seizures in the past. Patient has previously been seen at [facility] in 2014. His deficits at that time included left hemiparesis, cortical blindness, urine incontinence, dysarthria and gait disorder. 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 According to [facility] documentation, he had a spell at his fdc that was concerning for seizure one month prior to his visit. BG at the time was in the 40s and he was started on Keppra in addition to Zonegran. [facility] neurologist planned for discontinuation of Keppra [...] Minerva Small PA 81 mg at 06/15/24 09 atorvastatin (Lipitor) tablet 40 mg 40 [...] tablet 40 mg 40 mg Oral Daily Minerav Small PA 40 mg at 06/15/24938 desmopressin [...] Daily Minerva Small PA 10 mg at 06/15/24 0939 LORazepam (Ativan) (2 mg/mL) injection 2 mg [...] EEG CONTINUOUS MONITORING INPATIENT [address] ENGINEER FIX ACETABULAR FX Left 09/04/2017 @OPEN TREATMENT, ACETABULAR FX (WRVU 25.41) performed by Amy Lance MD at [facility] MAIN OR Allergies: Allergies Allergen Reactions Lopid [...] %-100 %] I/O: 06/15 0701 - 06/16 07 In: [...] ALT, ALKPHOS, BILITOT, BILIDIR in the last 7067hours. Last Ca, Mg, Phos Recent Labs 06/16/24 0009 CALCIUM 8.3* PHOS 3.2 MAGNESIUM 0.85 Last 3 Coags No results for input(s): PT, INR, PTT in the last 168 hours. Diagnostic Tests and Imaging: Results for orders placed or performed during the hospital encounter of 06/14/24 XR Chest One View (Exam End: 06/14/2024 4:02 AM) Result Value WORKSTATION ID [id number] Impression Low lung volumes with crowding of bronchovascular markings without radiographically evident acute cardiopulmonary process. Thank you for letting us participate in the care of this patient. If you are a health care provider and have any questions regarding this report, please contact the number below. For patients who have questions please contact the health rn wound care that requested your imaging first. Electronically signed by: Beverley Valencia MD, [facility] ([phone]), at 06/14/2024 4:32 AM Request For 2nd Read CT Head (Exam End: 06/14/2024 9:46 AM) Result Value WORKSTATION ID [id number] Impression Hypoattenuating, likely cystic mass appears to [...] who have questions please contact the health rn wound care that requested your imaging first. Electronically signed by: Galen Balderas [facility] ([phone]), at 06/14/2024 10:41 AM MRI Brain wwo Contrast (Generic) (Exam End: 2024 4:20 PM) Result Value WORKSTATION ID [id number] Impression Homogeneously enhancing 3.5 cm mass along [...] who have questions please contact the health rn wound care that requested your imaging first. Electronically signed by: Raudel Heredia MD, [facility] ([phone]), at 2024 4:46 PM Assessment: Abram Burgos [...] altered mental status prior to presentation is passenger representative of ongoing seizures at home. This [...] once nightly to twice daily by his fdc. He may need titration of medicationsto promote [...] Admitted From: Transfer from another hospital Location: [facility] Reason for Hospitalization: Per sister, patient had seizure activity for the first time in 9 years.EMS called. Past medical History: No past medical history on file. Hospitalizations Within the Past 30 Days: no previous admission in last 30 days Current Decision-Making Capacity: Guardian Name(s): Bettina Burgos Contact Information: [phone] (cell) Proxy Activated: Yes Paperwork on file?: [...] home: other (see comments) (Lives in a fdc.). Current LivingArrangements: fdc. Accessibility Concerns:Easy access to his surroundings. Fully supported.. In the last 12 months, was there a time when you were not able to pay the mortgage or rent on time?: No In the past 12 months, how many times have you moved where you were living?: 0 At any time in the past 12 months, were you homeless or living in a senior care (including now)?: No In the past 12 months has the [employer], gas, oil, or water [employer] threatened to shut off services in your [...] at times) Home Address confirmed as: [address] [facility] [address] Attn: Mercedez Otero [facility] [address] Social & Family Supports: All names listed below confirmed with patient as current and correct Extended Emergency Contact Information Primary Emergency Contact: Bettina Burgos Address: [facility] [facility] [address] [place] [address] [facility] Relation: Guardianship Secondary Emergency Contact: Lc Merlos [facility] Relation: Other Current Care Provided by: [facility] Provides Primary Care For: no one, unable/limited ability to care for self Caregiver if needed: other (see comments) (FPC) Quality of Family relationships: supportive, involved Community Resources being provided currently: fdc Behavioral Health History: Per chart review, Pt [...] N/A ; Prescription Coverage: Yes Preferred Pharmacy: [facility] Home Delivery - [facility] [address] [facility] [address] [facility] [address] [facility] [place], [place] [address] [facility] [address] [facility] [address] [facility] [address] [address] [facility] [address] Status: Patient is a : No Primary Care Provider confirmed: Ren Vaz MD [phone] Patient/Caregiver Goals of Treatment: Anticipating return to fdc when medically ready Potential Needs for Transition of Care: none Agency Referrals: [facility] [employer] Transportation: no concerns Transportation Anticipated: agency Concerns to be Addressed: other (see comments) (Needing transportation via [facility] at discharge) Assessment: Patient is admitted to service for Hyponatremia Pt is a 34 year dependent male, living in a fdc. Pt guardian is his sister, Bettina. Bettina is very involved and supportive. Guardianship paperwork is on file. Pt is cared for by his group homestaff while his finances remain in the care of his guardian. Re[facility] to confirm [facility] plans. The fdc will reach out with any information regarding this. Plan going forward: Pending hospital course Care Management team will continue to follow and assist with discharge planing and coordination of care as indicated. JAMSHID Ramirez Medicine SW Pager [phone] * Consult Note - Kellen Braxton MD [...] been altered recently. This afternoon at his fdc he had a two minutewitnessed tonic clonic [...] nightly to twice daily dosing at his fdc, which she had not been on before. 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 Sister reports that he has had low sodium in the past, she believes in the 120s or lower, but has not triggered seizures in the past. Patient has previously been seen at [facility] in 2014. His deficits at that time included left hemiparesis, cortical blindness, urine incontinence, dysarthria and gait disorder. 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 According to [facility] documentation, he had a spell at his fdc that was concerning for seizure one month prior to his visit. BG at the time was in the 40s and he was started on Keppra in addition to Zonegran. [facility] neurologist planned for discontinuation of Keppra [...] Minerva Small PA 100 mg at 06/15/24 05 baclofen (Lioresal) tablet 20 mg 20 mg [...] Surgical History: Procedure Laterality Date PRO OPEN HIGHWAY ENGINEER FIX ACETABULAR FX Left 09/04/2017 @OPEN TREATMENT, ACETABULAR FX (WRVU 25.41) performed by Amy Lance MD at [facility] MAIN OR Allergies: Allergies Allergen Reactions Lopid [...] %-99 %] I/O: 06/14 0701 - 06/15 07 In: 665 [P.O.:480; I.V.:185] Out: 2400 [Urine:2400] [...] 06/14/2024 4:02 AM) Result Value WORKSTATION ID [id number] Impression Low lung volumes with crowding of bronchovascular markings without radiographically evident acute cardiopulmonary process. Thank you for letting us participate in the care of this patient. If you are a health care provider and have any questions regarding this report, please contact the number below. For patients who have questions please contact the health rn wound care that requested your imaging first. Electronically signed by: Beverley Valencia MD, [facility] ([phone]), at 06/14/2024 4:32 AM Request For 2nd Read CT Head (Exam End: 06/14/2024 9:46 AM) Result Value WORKSTATION ID [id number] Impression Hypoattenuating, likely cystic mass appears to [...] who have questions please contact the health rn wound care that requested your imaging first. Electronically signed by: Galen Balderas [facility] ([phone]), at 06/14/2024 10:41 AM Assessment: Abram Burgos [...] Kirkpatrick MD - 06/14/2024 11:59 AM EST [facility] NEUROSURGERY CONSULT NOTE ID: Abram Burgos 33 y.o. male : 1990 Consult Requesting Service: Critical Care Consult Requesting Attending: MARIOLA ALFRED RICHARD K PCP: Ren Vaz MD Time of consultation: 11:45 Time of patient evaluation: 12:30 Reason for consultation: Possible mass in R middle fossa, seizure HISTORY OF PRESENT ILLNESS: Abram Burgso is a 33 y.o. male with a history notable for craniopharyngioma s/p resection ([facility], 10/2004) with intraoperative arterial injury, further complicated by panhypopituitarism and bilateral thalamic CVAs, epilepsy, and blindness who was admitted to the Critical Care service for seizures and hyponatremia. Neurosurgery is consulted for a 3 cm hypodensity in the anterior right middle fossa. He lives at a fdc. This past weekend, he was in his normal state of health when he had a witnessed 2 minute seizure, reportedly with generalized stiffening. He was brought to [facility], where he was found to have Na of 121. He had a tongue laceration. In the ED there he had an additional witnessed seizure. He was transferred to the [facility] for a higher level of [...] underwent tumor resection with Dr. Álvarez at [facility]. This was complicated by arterial bleeding [...] Surgical History: Procedure Laterality Date PRO OPEN HIGHWAY ENGINEER FIX ACETABULAR FX Left 09/04/2017 @OPEN TREATMENT, ACETABULAR FX (WRVU 25.41) performed by Amy Lance MD at [facility] MAIN OR MEDICATIONS: No current facility-administered medications [...] file Social History Narrative Lives at the [facility], moved in 11/07/2014. Social Determinants of Health [...] neurosurgery attending. No future appointments. Neurosurgery Pager: [phone] Gonzalez Kirkpatrick MD Neurosurgery PGY-1 06/14/2024 6:44 [...] Surgical History: Procedure Laterality Date PRO OPEN HIGHWAY ENGINEER FIX ACETABULAR FX Left 09/04/2017 @OPEN TREATMENT, ACETABULAR FX (WRVU 25.41) performed by Amy Lance MD at [facility] MAIN OR Social History: Patient lives in a fdc. Home Setup: accessible DME: none Baseline ADL/Mobility: [...] x2 handhold Ambulation: CGA x2 handhold for [id number] transfer EOB<>commode Stand to sit: CGA Sit [...] be determined Anticipated Discharge Dispostion: adult foster care/fdc (pending on progress) Other Recommendations: Open shades [...] Discharge planning. Total Minutes, Occupational Therapy: 16 ([id number] (evaluation)) 2017 OT Evaluation Code Rationale: Diagnosis [...] and measurable assessment of functional outcome. Pager: [phone] Dinorah Navas OTR/L 06/14/2024 Occupational Therapy Rehabilitation [...] follows with Dr. Zaidi of Endocrinology at [facility]. Recently saw a covering provider, Day Littlejohn in March 2024. He currently resides in a fdc, [facility] where nurses and medical assistants provide [...] Surgical History: Procedure Laterality Date PRO OPEN HIGHWAY ENGINEER FIX ACETABULAR FX Left 09/04/2017 @OPEN TREATMENT, ACETABULAR FX (WRVU 25.41) performed by Amy Lance MD at [facility] MAIN OR No family history on file. [...] file Social History Narrative Lives at the [facility], moved in 11/07/2014. Social Determinants of Health [...] PMH significant for TBI, craniopharyngioma s/p resected 2005, c/b panhypopituitarism with central hypothyroidism, secondary adrenal [...] access to additional DDAVP dosing at his fdc. Pos sibility of him having access to additional water/fluid intake over the last few weeks. Patients sister and legal guardian said that this is possible given there is often rn wound care turnover and not everyone is up to [...] with Dr. Morris. Crista Gill MD. PGY4 [facility] Endocrinology Pager #[phone] I have seen the patient and reviewed [...] is effective and safe Shola Morris MD Decorating Supervisorauto rental clerk Endocrinology Section [facility] * Consult Note - Kellen Braxton MD [...] been altered recently. This afternoon at his fdc he had a two minutewitnessed tonic clonic [...] nightly to twice daily dosing at his fdc, which she had not been on before. 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 Sister reports that he has had low sodium in the past, she believes in the 120s or lower, but has not triggered seizures in the past. Patient has previously been seen at [facility] in 2014. His deficits at that time included left hemiparesis, cortical blindness, urine incontinence, dysarthria and gait disorder. 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 According to [facility] documentation, he had a spell at his fdc that was concerning for seizure one month prior to his visit. BG at the time was in the 40s and he was started on Keppra in addition to [employer] [facility] neurologist planned for discontinuation of Keppra [...] Surgical History: Procedure Laterality Date PRO OPEN HIGHWAY ENGINEER FIX ACETABULAR FX Left 09/04/2017 @OPEN TREATMENT, ACETABULAR FX (WRVU 25.41) performed by Amy Lance MD at [facility] MAIN OR Allergies: Allergies Allergen Reactions Lopid [...] Flexor digitorum profundus Digit II-V flexion / crepe machine operator 5 5 L2-3 Iliopsoas Hip flexion 5 [...] 06/14/2024 4:02 AM) Result Value WORKSTATION ID [id number] Impression Low lung volumes with crowding of bronchovascular markings without radiographically evident acute cardiopulmonary process. Thank you for letting us participate in the care of this patient. If you are a health care provider and have any questions regarding this report, please contact the number below. For patients who have questions please contact the health rn wound care that requested your imaging first. Electronically signed by: Beverley Valencia MD, [facility] ([phone]), at 06/14/2024 4:32 AM Assessment: Abram Burgos [...] Holland MD Neurology, PGY-3 Consult Neurology Service #[id number] 06/14/2024 ATTENDING NOTE: I reviewed the pertinent [...] 2024 4:20 PM EST Unlisted Mri Procedure ([id number]) 2024 2:56 PM EST Please evaluate lesion [...] 06/14/2024 9:46 AM EST URINALYSIS BEAKER MICROSCOPIC ([facility]) SHEEBA 06/14/2024 8:06 AM EST _URINALYSIS WITH [...] Hepatic Function Panel (06/21/2024 12:50 AM EST) [facility] Albumin 4.0 3.2 - 5.2 g/dL 06/21/2024 1:30 AM EST [facility] Aspartate Aminotransferase 47(H) <=39 unit/L 06/21/2024 1:30 AM [facility] Alanine Aminotransferase 64(H) 0 - 55 unit/L 06/21/2024 1:30 AM [facility] Alkaline Phosphatase 141(H) 40 - 130 unit/L 06/21/2024 1:30 AM [facility] Bilirubin, Total <0.2 <=1.3 mg/dL 06/21/2024 1:30 AM [facility] Bilirubin, Direct <0.2 0.0 - 0.3 mg/dL 06/21/2024 1:30 AM [facility] Protein, Total 7.1 6.1 - 8.0 g/dL 06/21/2024 1:30 AM [facility] Blood VENOUS BLOOD SPECIMEN / Unknown Venipuncture / Unknown 06/21/2024 12:50 AM EST 06/21/2024 12:56 AM EST Martinez Reynolds MD CHEMISTRY ORDERABLES [facility] [place] [address] * (ABNORMAL) CBC (with Diff) (06/21/2024 12:50 AM EST) White Blood Cell 7.52 4.00 - 9.50 x10(3)/mc L 06/21/2024 1:09 AM [facility] Red Blood Cell 5.33 4.58 - 5.54 x10(6)/mc L 06/21/2024 1:09 AM [facility] Hemoglobin 12.9(L) 13.7 - 16.5 g/dL 06/21/2024 1:09 AM [facility] Hematocrit 39.9(L) 40.5 - 48.5 % 06/21/2024 1:09 AM [facility] Mean Cell Volume 74.9(L) 82.9 - 93.1 fL 06/21/2024 1:09 AM [facility] Mean Cell Hemoglobin 24.2(L) 27.5 - 32.1 pg 06/21/2024 1:09 AM [facility] Mean Cell Hemoglobin Concentration 32.3 32.0 - 35.7 g/dL 06/21/2024 1:09 AM [facility] Platelet 268 145 - 357 x10(3)/mc L 06/21/2024 1:09 AM [facility] Mean Platelet Volume 9.1 7.6 - 12.9 fL 06/21/2024 1:09 AM [facility] RDW Standard Deviation 39.8 36.0 - 45.0 fL 06/21/2024 1:09 AM [facility] RDW coefficient of variation 15.0(H) 11.4 - 13.8 % 06/21/2024 1:09 AM [facility] NRBC% auto 0.0 % 06/21/2024 1:09 AM [facility] NRBC Absolute <0.01 <0.01 x10(3)/mc L 06/21/2024 1:09 AM [facility] Neutrophil % 63.6 % 06/21/2024 1:09 AM [facility] Neutrophil Absolute (ANC) - Automated 4.78 1.70 - 6.10 x10(3)/mc L 06/21/2024 1:09 AM [facility] Lymph % 23.7 % 06/21/2024 1:09 AM [facility] Lymph Absolute 1.78 0.90 - 3.20 x10(3)/mc L 06/21/2024 1:09 AM [facility] Monocyte % 9.8 % 06/21/2024 1:09 AM [facility] Monocyte Absolute 0.74 0.30 - 0.90 x10(3)/mc L 06/21/2024 1:09 AM [facility] Eos % 2.0 % 06/21/2024 1:09 AM [facility] Eos Absolute 0.15 0.00 - 0.40 x10(3)/mc L 06/21/2024 1:09 AM EST [facility] Basophil % 0.4 % 06/21/2024 1:09 AM [facility] Baso Absolute <0.04 0.00 - 0.10 x10(3)/mc L 06/21/2024 1:09 AM [facility] Immature Gran % 0.5 % 1:09 AM [facility] Immature Gran Absolute 0.04 0.00 - 0.04 x10(3)/mc L 06/21/2024 1:09 AM [facility] Blood VENOUS BLOOD SPECIMEN / Unknown Venipuncture / Unknown 06/21/2024 12:50 AM EST 06/21/2024 12:56 AM EST Martinez Reynolds MD HEMATOLOGY ORDERABLE S [facility] [place] [address] * Phosphorus (06/21/2024 12:50 AM EST) Phosphorus 3.2 2.5 - 4.5 mg/dL 06/21/2024 1:30 AM [facility] Blood VENOUS BLOOD SPECIMEN / Unknown Venipuncture / Unknown 06/21/2024 12:50 AM EST 06/21/2024 12:56 AM EST Martinez Reynolds MD CHEMISTRY ORDERABLES [facility] [place] [address] * Magnesium (06/21/2024 12:50 AM EST) Magnesium 0.81 0.69 - 1.07 mMol/L 06/21/2024 1:30 AM EST [facility] Blood VENOUS BLOOD SPECIMEN / Unknown Venipuncture / Unknown 06/21/2024 12:50 AM EST 06/21/2024 12:56 AM EST Martinez Reynolds MD CHEMISTRY ORDERABLES [facility] [place] [address] * (ABNORMAL) Basic Metabolic Panel (06/21/2024 12:50 AM EST) Glucose 126 65 - 199 mg/dL 06/21/2024 1:44 AM [facility] Comment:Glucose Concentratio n >=200 mg/dL plus symptoms is consistent with Diabetes Mellitus. Blood Urea Nitrogen 12 10 - 20 mg/dL 06/21/2024 1:44 AM [facility] Creatinine 0.82 0.80 - 1.50 mg/dL 06/21/2024 1:44 AM [facility] Sodium 141 135 - 145 mMol/L 06/21/2024 1:44 AM [facility] Potassium 4.3 3.5 - 5.0 mMol/L 06/21/2024 1:44 AM [facility] Chloride 111(H) 98 - 107 mMol/L 06/21/2024 1:44 AM [facility] Carbon Dioxide 18(L) 22 - 31 mMol/L 06/21/2024 1:44 AM [facility] Anion Gap 12 5 - 15 mMol/L 06/21/2024 1:44 AM [facility] Calcium 9.0 8.5 - 10.5 mg/dL 06/21/2024 1:44 AM [facility] Est Glomerular Filtration Rate - Male 118 mL/min/1. 73 m?? 06/21/2024 1:44 AM [facility] Comment: This patient's estimated [...] AM EST Martinez Reynolds MD CHEMISTRY ORDERABLES [facility] [place] [address] * (ABNORMAL) Hepatic Function Panel (06/20/2024 12:53 AM EST) Albumin 4.4 3.2 - 5.2 g/dL 06/20/2024 1:42 AM EST [facility] Aspartate Aminotransferase 65(H) <=39 unit/L 06/20/2024 1:42 AM EST [facility] Alanine Aminotransferase 80(H) 0 - 55 unit/L 06/20/2024 1:42 AM [facility] Alkaline Phosphatase 128 40 - 130 unit/L 06/20/2024 1:42 AM EST [facility] Bilirubin, Total <0.2 <=1.3 mg/dL 06/20/2024 1:42 AM EST [facility] Bilirubin, Direct <0.2 0.0 - 0.3 mg/dL 06/20/2024 1:42 AM EST [facility] Protein, Total 7.4 6.1 - 8.0 g/dL 06/20/2024 1:42 AM EST [facility] Blood VENOUS BLOOD SPECIMEN / Unknown Venipuncture / Unknown 06/20/2024 12:53 AM EST 06/20/2024 1:11 AM EST Martinez Reynolds MD CHEMISTRY ORDERABLES [facility] [place] [address] * (ABNORMAL) CBC (with Diff) (06/20/2024 12:53 AM EST) White Blood Cell 5.59 4.00 - 9.50 x10(3)/mc L 06/20/2024 1:23 AM [facility] Red Blood Cell 5.50 4.58 - 5.54 x10(6)/mc L 06/20/2024 1:23 AM [facility] Hemoglobin 13.5(L) 13.7 - 16.5 g/dL 06/20/2024 1:23 AM [facility] Hematocrit 40.9 40.5 - 48.5 % 06/20/2024 1:23 AM [facility] Mean Cell Volume 74.4(L) 82.9 - 93.1 fL 06/20/2024 1:23 AM [facility] Mean Cell Hemoglobin 24.5(L) 27.5 - 32.1 pg 06/20/2024 1:23 AM [facility] Mean Cell Hemoglobin Concentration 33.0 32.0 - 35.7 g/dL 06/20/2024 1:23 AM [facility] Platelet 303 145 - 357 x10(3)/mc L 06/20/2024 1:23 AM [facility] Mean Platelet Volume 8.9 7.6 - 12.9 fL 06/20/2024 1:23 AM [facility] RDW Standard Deviation 39.6 36.0 - 45.0 fL 06/20/2024 1:23 AM [facility] RDW coefficient of variation 14.7(H) 11.4 - 13.8 % 06/20/2024 1:23 AM [facility] NRBC% auto 0.0 % 06/20/2024 1:23 AM [facility] NRBC Absolute <0.01 <0.01 x10(3)/mc L 06/20/2024 1:23 AM [facility] Neutrophil % 54.2 % 06/20/2024 1:23 AM [facility] Neutrophil Absolute (ANC) - Automated 3.03 1.70 - 6.10 x10(3)/mc L 06/20/2024 1:23 AM [facility] Lymph % 31.1 % 06/20/2024 1:23 AM [facility] Lymph Absolute 1.74 0.90 - 3.20 x10(3)/mc L 06/20/2024 1:23 AM [facility] Monocyte % 11.8 % 06/20/2024 1:23 AM [facility] Monocyte Absolute 0.66 0.30 - 0.90 x10(3)/mc L 06/20/2024 1:23 AM [facility] Eos % 2.0 % 06/20/2024 1:23 AM [facility] Eos Absolute 0.11 0.00 - 0.40 x10(3)/mc L 06/20/2024 1:23 AM [facility] Basophil % 0.4 % 06/20/2024 1:23 AM [facility] Baso Absolute <0.04 0.00 - 0.10 x10(3)/mc L 06/20/2024 1:23 AM [facility] Immature Gran % 0.5 % 1:23 AM [facility] Immature Gran Absolute <0.04 0.00 - 0.04 x10(3)/mc L 06/20/2024 1:23 AM [facility] Blood VENOUS BLOOD SPECIMEN / Unknown Venipuncture / Unknown 06/20/2024 12:53 AM EST 06/20/2024 1:12 AM EST Martinez Reynolds MD HEMATOLOGY ORDERABLE S [facility] [place] [address] * Phosphorus (06/20/2024 12:53 AM EST) Pathologist [facility] Phosphorus 3.7 2.5 - 4.5 mg/dL 06/20/2024 1:42 AM [facility] Blood VENOUS BLOOD SPECIMEN / Unknown Venipuncture / Unknown 06/20/2024 12:53 AM EST 06/20/2024 1:11 AM EST Martinez Reynolds MD CHEMISTRY ORDERABLES Performing Organization Address City/[facility]/ZIP Co de Phone Number [facility] [place] [address] * Magnesium (06/20/2024 12:53 AM EST) [facility] Magnesium 0.76 0.69 - 1.07 mMol/L 06/20/2024 1:42 AM [facility] Blood VENOUS BLOOD SPECIMEN / Unknown Venipuncture / Unknown 06/20/2024 12:53 AM EST 06/20/2024 1:11 AM EST Martinez Reynolds MD CHEMISTRY ORDERABLES Performing Organization Address City/[facility]/ZIP Co de Phone Number [facility] [place] [address] * (ABNORMAL) Basic Metabolic Panel (06/20/2024 12:53 AM EST) [facility] Glucose 95 65 - 199 mg/dL 06/20/2024 1:42 AM [facility] Comment:Glucose Concentratio n >=200 mg/dL plus symptoms is consistent with Diabetes Mellitus. Blood Urea Nitrogen 10 10 - 20 mg/dL 06/20/2024 1:42 AM [facility] Creatinine 0.75(L) 0.80 - 1.50 mg/dL 06/20/2024 1:42 AM [facility] Sodium 137 135 - 145 mMol/L 06/20/2024 1:42 AM [facility] Potassium 3.7 3.5 - 5.0 mMol/L 06/20/2024 1:42 AM EST [facility] Chloride 102 98 - 107 mMol/L 06/20/2024 1:42 AM [facility] Carbon Dioxide 20(L) 22 - 31 mMol/L 06/20/2024 1:42 AM [facility] Anion Gap 15 5 - 15 mMol/L 06/20/2024 1:42 AM EST [facility] Calcium 9.1 8.5 - 10.5 mg/dL 06/20/2024 1:42 AM EST [facility] Est Glomerular Filtration Rate - Male 121 mL/min/1. 73 m?? 06/20/2024 1:42 AM [facility] Comment: This patient's estimated [...] AM EST Martinez Reynolds MD CHEMISTRY ORDERABLES [facility] [place] [address] * (ABNORMAL) Hepatic Function Panel (06/19/2024 4:10 AM EST) Albumin 4.2 3.2 - 5.2 g/dL 06/19/2024 4:51 AM EST [facility] Aspartate Aminotransferase 57(H) <=39 unit/L 06/19/2024 4:51 AM EST [facility] Alanine Aminotransferase 76(H) 0 - 55 unit/L 06/19/2024 4:51 AM [facility] Alkaline Phosphatase 133(H) 40 - 130 unit/L 06/19/2024 4:51 AM [facility] Bilirubin, Total 0.2 <=1.3 mg/dL 06/19/2024 4:51 AM [facility] Bilirubin, Direct <0.2 0.0 - 0.3 mg/dL 06/19/2024 4:51 AM [facility] Protein, Total 7.5 6.1 - 8.0 g/dL 06/19/2024 4:51 AM [facility] Blood VENOUS BLOOD SPECIMEN / Unknown Venipuncture / Unknown 06/19/2024 4:10 AM EST 06/19/2024 4:21 AM EST Martinez Reynolds MD CHEMISTRY ORDERABLES Performing Organization Address City/State/[facility] Co de Phone Number [facility] [place] [address] * (ABNORMAL) CBC (with Diff) (06/19/2024 4:10 AM EST) White Blood Cell 6.86 4.00 - 9.50 x10(3)/mc L 06/19/2024 4:28 AM [facility] Red Blood Cell 5.60(H) 4.58 - 5.54 x10(6)/mc L 06/19/2024 4:28 AM [facility] Hemoglobin 13.8 13.7 - 16.5 g/dL 06/19/2024 4:28 AM [facility] Hematocrit 41.6 40.5 - 48.5 % 06/19/2024 4:28 AM [facility] Mean Cell Volume 74.3(L) 82.9 - 93.1 fL 06/19/2024 4:28 AM [facility] Mean Cell Hemoglobin 24.6(L) 27.5 - 32.1 pg 06/19/2024 4:28 AM [facility] Mean Cell Hemoglobin Concentration 33.2 32.0 - 35.7 g/dL 06/19/2024 4:28 AM [facility] Platelet 297 145 - 357 x10(3)/mc L 06/19/2024 4:28 AM [facility] Mean Platelet Volume 9.1 7.6 - 12.9 fL 06/19/2024 4:28 AM [facility] RDW Standard Deviation 39.1 36.0 - 45.0 fL 06/19/2024 4:28 AM [facility] RDW coefficient of variation 14.8(H) 11.4 - 13.8 % 06/19/2024 4:28 AM [facility] NRBC% auto 0.0 % 06/19/2024 4:28 AM [facility] NRBC Absolute <0.01 <0.01 x10(3)/mc L 06/19/2024 4:28 AM [facility] Neutrophil % 64.0 % 06/19/2024 4:28 AM [facility] Neutrophil Absolute (ANC) - Automated 4.39 1.70 - 6.10 x10(3)/mc L 06/19/2024 4:28 AM [facility] Lymph % 28.7 % 06/19/2024 4:28 AM [facility] Lymph Absolute 1.97 0.90 - 3.20 x10(3)/mc L 06/19/2024 4:28 AM [facility] Monocyte % 4.1 % 06/19/2024 4:28 AM [facility] Monocyte Absolute 0.28(L) 0.30 - 0.90 x10(3)/mc L 06/19/2024 4:28 AM [facility] Eos % 2.2 % 06/19/2024 4:28 AM [facility] Eos Absolute 0.15 0.00 - 0.40 x10(3)/mc L 06/19/2024 4:28 AM EST [facility] Basophil % 0.4 % 06/19/2024 4:28 AM EST [facility] Baso Absolute <0.04 0.00 - 0.10 x10(3)/mc L 06/19/2024 4:28 AM EST [facility] Immature Gran % 0.6 % 4:28 AM EST [facility] Immature Gran Absolute 0.04 0.00 - 0.04 x10(3)/mc L 06/19/2024 4:28 AM EST [facility] Blood VENOUS BLOOD SPECIMEN / Unknown Venipuncture / Unknown 06/19/2024 4:10 AM EST 06/19/2024 4:21 AM EST Martinez Reynolds MD HEMATOLOGY ORDERABLE S [facility] [place] [address] * (ABNORMAL) Phosphorus (06/19/2024 4:10 AM EST) Phosphorus 5.0(H) 2.5 - 4.5 mg/dL 06/19/2024 4:51 AM EST [facility] Blood VENOUS BLOOD SPECIMEN / Unknown Venipuncture / Unknown 06/19/2024 4:10 AM EST 06/19/2024 4:21 AM EST Martinez Reynolds MD CHEMISTRY ORDERABLES [facility] [place] [address] * Magnesium (06/19/2024 4:10 AM EST) Magnesium 0.74 0.69 - 1.07 mMol/L 06/19/2024 4:51 AM EST [facility] Blood VENOUS BLOOD SPECIMEN / Unknown Venipuncture / Unknown 06/19/2024 4:10 AM EST 06/19/2024 4:21 AM EST Martinez Reynolds MD CHEMISTRY ORDERABLES [facility] [place] [address] * (ABNORMAL) Basic Metabolic Panel (06/19/2024 4:10 AM EST) Glucose 112 65 - 199 mg/dL 06/19/2024 4:51 AM [facility] Comment:Glucose Concentratio n >=200 mg/dL plus symptoms is consistent with Diabetes Mellitus. Blood Urea Nitrogen 19 10 - 20 mg/dL 06/19/2024 4:51 AM [facility] Creatinine 0.86 0.80 - 1.50 mg/dL 06/19/2024 4:51 AM [facility] Sodium 135 135 - 145 mMol/L 06/19/2024 4:51 AM [facility] Potassium 3.8 3.5 - 5.0 mMol/L 06/19/2024 4:51 AM [facility] Chloride 97(L) 98 - 107 mMol/L 06/19/2024 4:51 AM [facility] Carbon Dioxide 25 22 - 31 mMol/L 06/19/2024 4:51 AM [facility] Anion Gap 13 5 - 15 mMol/L 06/19/2024 4:51 AM [facility] Calcium 9.4 8.5 - 10.5 mg/dL 06/19/2024 4:51 AM [facility] Est Glomerular Filtration Rate - Male 117 mL/min/1. 73 m?? 06/19/2024 4:51 AM [facility] Comment: This patient's estimated [...] AM EST Martinez Reynolds MD CHEMISTRY ORDERABLES [facility] [place] [address] * (ABNORMAL) Urinalysis with reflex Culture (06/19/2024 3:22 AM EST) Glucose, Urine Dipstick Negative Negative 06/19/2024 3:37 AM [facility] Protein, Urine Dipstick Negative Negative 06/19/2024 3:37 AM [facility] Bilirubin, Urine Dipstick Negative Negative 06/19/2024 3:37 AM [facility] Comment:Clinical correlation required for positive Urine Bilirubin results as false positive may occur with some drugs and drug related products. If a false positive is suspected a serum total bilirubin should be considered if clinically indicated. Urobilinogen, Urine Dipstick Normal Normal, 0.2 mg/dL, 1.0 mg/dL 06/19/2024 3:37 AM [facility] pH, Urine (dipstick) 6.5 5.0 - 8.0 06/19/2024 3:37 AM [facility] Blood, Urine Dipstick Negative Negative 06/19/2024 3:37 AM [facility] Ketone, Urine Dipstick Negative Negative 06/19/2024 3:37 AM [facility] Nitrite, Urine Dipstick Negative Negative 06/19/2024 3:37 AM [facility] Leukocytes, Urine Dipstick Negative Negative 06/19/2024 3:37 AM [facility] Specific [place] Urine Automated 1.021 1.005 - 1.030 06/19/2024 3:37 AM EST [facility] Appearance, Urine Dipstick Cloudy(A) Clear 06/19/2024 3:37 AM EST [facility] Color, Urine Dipstick Yellow Yellow, Dark Yellow 06/19/2024 3:37 AM EST [facility] CULTURE ADDED? 06/19/2024 3:37 AM EST [facility] Urine URINE SPECIMEN OBTAINED VIA STRAIGHT CATHETER / Unknown Non Blood Collection / Unknown 06/19/2024 3:22 AM EST 06/19/2024 3:31 AM EST Pamela Johnson DO URINE ORDERABLES [facility] [place] [address] * XR Chest One View (06/18/2024 7:55 PM EST) [employer] WORKSTATION ID [id number] DH RAD Anatomical Region Laterality Modality Chest [...] who have questions please contact the health rn wound care that requested your imaging first. ? Electronically signed by: Tobias Sotomayor MD, [facility] ([phone]), at 06/18/2024 8:09 PM Narrative 06/18/2024 8:09 [...] patients who have questions please contactthe health rn wound care that requested your imaging first. Electronically signed by: [facility]or [facility]([phone]), at 06/18/2024 8:09 PM Pamela Johnson DO IMG DX ORDERABLES * Blood culture (06/18/2024 7:00 PM EST) Blood Culture No growth at 120 hours 06/23/2024 8:00 PM EST [facility] Blood VENOUS BLOOD SPECIMEN / Unknown Venipuncture / Unknown 06/18/2024 7:00 PM EST 06/18/2024 7:05 PM EST Pamela Johnson DO MICROBIOLOGY - BL OOD ORDERABLES [facility] [place] [address] * (ABNORMAL) Blood culture (06/18/2024 7:00 PM EST) [facility] Blood Culture Coagulase Negative Staphylococcus species(Critical) VITEK 2 METHOD 06/23/2024 6:52 AM EST [facility] Comment: detected by PCR Interpretation of the importance of skin akbar such as Coag Negative Staph, Viridans Strep, Corynebacteria and other Gram Positive orgs from a single Blood Culture set requires clinical correlation. Gram Stain Anaerobic Bottle: Gram positive cocci in clusters(Critical ) 06/23/2024 6:52 AM EST [facility] Comment:This is an appended report. These results have been appended to a previously preliminary verified report. Blood VENOUS BLOOD SPECIMEN / Unknown Venipuncture / Unknown 06/18/2024 7:00 PM EST 06/18/2024 7:05 PM EST Pamela Johnson DO MICROBIOLOGY - BL OOD ORDERABLES Performing Organization Address City/[facility]/ZIP Co de Phone Number [facility] [place] [address] * POC, GLUCOSE (06/18/2024 6:55 PM EST) [facility] Glucometer, POC 100 65 - 199 mg/dL 06/18/2024 6:56 PM EST [facility] Comment:Supplemental ranges: <140 mg/dL before meals <180 mg/dL all other times of the day. Blood CAPILLARY BLOOD / Unknown 06/18/2024 6:55 PM EST 06/18/2024 6:56 PM EST Pamela Johnsno DO POINT OF CARE TABATHA T ORDERABLES [facility] [place] [address] * EKG 12 Lead (06/18/2024 1:41 PM EST) [facility] Ventricular rate 47 BPM MUSE SYSTEM Atrial Rate 47 BPM MUSE SYSTEM P-R Interval 186 ms MUSE SYSTEM QRS Duration 114 ms MUSE SYSTEM Q-T Interval 558 ms MUSE SYSTEM QTC Calculated (Bezet) 493 ms MUSE SYSTEM Calculated P [place] 11 degrees MUSE SYSTEM Calculated R [place] 45 degrees MUSE SYSTEM Calculated T [place] 45 degrees MUSE SYSTEM INTERPRETATION Sinus bradycardia [...] Reynolds MD ECG ORDERABLES Performing Organization Address City/[facility]/ZIP Co de Phone Number MUSE SYSTEM * Sodium (06/18/2024 12:22 PM EST) Sodium 135 135 - 145 mMol/L 06/18/2024 1:01 PM EST [facility] Blood VENOUS BLOOD SPECIMEN / Unknown Venipuncture / Unknown 06/18/2024 12:22 PM EST 06/18/2024 12:35 PM EST Pamela Johnson DO CHEMISTRY ORDERAB LES Performing Organization Address City/[facility]/ZIP Co de Phone Number [facility] [place] [address] * CT Head wo Contrast (Generic) (06/18/2024 11:18 AM EST) WORKSTATION ID [id number] RAD Anatomical Region Laterality Modality Head Computed [...] who have questions please contact the health rn wound care that requested your imaging first. ? Electronically signed by: Jimbo Casillas MD, [facility] ([phone]), at 06/18/2024 11:37 AM Narrative 06/18/2024 11:37 [...] patients who have questions please contactthe health rn wound care that requested your imaging first. Electronically signed by: Jimbo Casillas MD, [facility]([phone]), at 06/18/2024 11:37 AM Pamela Johnson DO [facility] CT ORDERABLES * (ABNORMAL) Hepatic Function Panel (06/18/2024 1:26 AM EST) [facility] Albumin 4.2 3.2 - 5.2 g/dL 06/18/2024 2:02 AM EST [facility] Aspartate Aminotransferase 52(H) <=39 unit/L 06/18/2024 2:02 AM [facility] Alanine Aminotransferase 61(H) 0 - 55 unit/L 06/18/2024 2:02 AM [facility] Alkaline Phosphatase 118 40 - 130 unit/L 06/18/2024 2:02 AM [facility] Bilirubin, Total 0.3 <=1.3 mg/dL 06/18/2024 2:02 AM [facility] Bilirubin, Direct <0.2 0.0 - 0.3 mg/dL 06/18/2024 2:02 AM [facility] Protein, Total 6.9 6.1 - 8.0 g/dL 06/18/2024 2:02 AM [facility] Blood VENOUS BLOOD SPECIMEN / Unknown Venipuncture / Unknown 06/18/2024 1:26 AM EST 06/18/2024 1:34 AM EST Martinez Reynolds MD CHEMISTRY ORDERABLES [facility] [place] [address] * (ABNORMAL) CBC (with Diff) (06/18/2024 1:26 AM EST) [facility] White Blood Cell 9.78(H) 4.00 - 9.50 x10(3)/mc L 06/18/2024 1:38 AM EST [facility] Red Blood Cell 5.02 4.58 - 5.54 x10(6)/mc L 06/18/2024 1:38 AM [facility] Hemoglobin 12.4(L) 13.7 - 16.5 g/dL 06/18/2024 1:38 AM [facility] Hematocrit 37.2(L) 40.5 - 48.5 % 06/18/2024 1:38 AM [facility] Mean Cell Volume 74.1(L) 82.9 - 93.1 fL 06/18/2024 1:38 AM [facility] Mean Cell Hemoglobin 24.7(L) 27.5 - 32.1 pg 06/18/2024 1:38 AM [facility] Mean Cell Hemoglobin Concentration 33.3 32.0 - 35.7 g/dL 06/18/2024 1:38 AM [facility] Platelet 262 145 - 357 x10(3)/mc L 06/18/2024 1:38 AM [facility] Mean Platelet Volume 9.2 7.6 - 12.9 fL 06/18/2024 1:38 AM [facility] RDW Standard Deviation 40.8 36.0 - 45.0 fL 06/18/2024 1:38 AM [facility] RDW coefficient of variation 15.3(H) 11.4 - 13.8 % 06/18/2024 1:38 AM [facility] NRBC% auto 0.0 % 06/18/2024 1:38 AM [facility] NRBC Absolute <0.01 <0.01 x10(3)/mc L 06/18/2024 1:38 AM [facility] Neutrophil % 72.8 % 06/18/2024 1:38 AM [facility] Neutrophil Absolute (ANC) - Automated 7.12(H) 1.70 - 6.10 x10(3)/mc L 06/18/2024 1:38 AM [facility] Lymph % 16.9 % 06/18/2024 1:38 AM [facility] Lymph Absolute 1.65 0.90 - 3.20 x10(3)/mc L 06/18/2024 1:38 AM [facility] Monocyte % 8.7 % 06/18/2024 1:38 AM [facility] Monocyte Absolute 0.85 0.30 - 0.90 x10(3)/mc L 06/18/2024 1:38 AM [facility] Eos % 1.0 % 06/18/2024 1:38 AM [facility] Eos Absolute 0.10 0.00 - 0.40 x10(3)/mc L 06/18/2024 1:38 AM [facility] Basophil % 0.2 % 06/18/2024 1:38 AM [facility] Baso Absolute <0.04 0.00 - 0.10 x10(3)/mc L 06/18/2024 1:38 AM [facility] Immature Gran % 0.4 % 1:38 AM [facility] Immature Gran Absolute 0.04 0.00 - 0.04 x10(3)/mc L 06/18/2024 1:38 AM [facility] Blood VENOUS BLOOD SPECIMEN / Unknown Venipuncture / Unknown 06/18/2024 1:26 AM EST 06/18/2024 1:34 AM EST Martinez Reynolds MD HEMATOLOGY ORDERABLE S Performing Organization Address City/State/[facility] Co de Phone Number [facility] [place] [address] * (ABNORMAL) Phosphorus (06/18/2024 1:26 AM EST) Phosphorus 5.7(H) 2.5 - 4.5 mg/dL 06/18/2024 2:02 AM [facility] Blood VENOUS BLOOD SPECIMEN / Unknown Venipuncture / Unknown 06/18/2024 1:26 AM EST 06/18/2024 1:34 AM EST Martinez Reynolds MD CHEMISTRY ORDERABLES [facility] [place] [address] * Magnesium (06/18/2024 1:26 AM EST) Magnesium 0.84 0.69 - 1.07 mMol/L 06/18/2024 2:02 AM [facility] Blood VENOUS BLOOD SPECIMEN / Unknown Venipuncture / Unknown 06/18/2024 1:26 AM EST 06/18/2024 1:34 AM EST Martinez Reynolds MD CHEMISTRY ORDERABLES Performing Organization Address City/[facility]/ZIP Co de Phone Number [facility] [place] [address] * Basic Metabolic Panel (06/18/2024 1:26 AM EST) Pathologist [facility] Glucose 106 65 - 199 mg/dL 06/18/2024 2:02 AM [facility] Comment:Glucose Concentratio n >=200 mg/dL plus symptoms is consistent with Diabetes Mellitus. Blood Urea Nitrogen 15 10 - 20 mg/dL 06/18/2024 2:02 AM [facility] Creatinine 1.05 0.80 - 1.50 mg/dL 06/18/2024 2:02 AM [facility] Sodium 138 135 - 145 mMol/L 06/18/2024 2:02 AM [facility] Potassium 4.4 3.5 - 5.0 mMol/L 06/18/2024 2:02 AM [facility] Chloride 102 98 - 107 mMol/L 06/18/2024 2:02 AM [facility] Carbon Dioxide 25 22 - 31 mMol/L 06/18/2024 2:02 AM [facility] Anion Gap 11 5 - 15 mMol/L 06/18/2024 2:02 AM [facility] Calcium 9.3 8.5 - 10.5 mg/dL 06/18/2024 2:02 AM EST [facility] Est Glomerular Filtration Rate - Male 96 mL/min/1. 73 m?? 06/18/2024 2:02 AM EST [facility] Comment: This patient's estimated GFR [...] AM EST Martinez Reynolds MD CHEMISTRY ORDERABLES [facility] [place] [phone] * EKG 12 Lead (06/18/2024 12:53 AM EST) Ventricular rate 79 BPM MUSE SYSTEM Atrial Rate 79 BPM MUSE SYSTEM P-R Interval 160 ms MUSE SYSTEM QRS Duration 98 ms MUSE SYSTEM Q-T Interval 420 ms MUSE SYSTEM QTC Calculated (Bezet) 481 ms MUSE SYSTEM Calculated P [place] 17 degrees MUSE SYSTEM Calculated R [place] 46 degrees MUSE SYSTEM Calculated T [place] 45 degrees MUSE SYSTEM INTERPRETATION Normal sinus rhythm Nonspecific T wave abnormality Prolonged QT Abnormal ECG When compared with ECG of 14-JUN-2024 01:04, Nonspecific T wave abnormality now evident in Anterior leads I personally reviewed the tracing and edited the fellows interpretation Confirmed by fellow MD Corbin, Maninder ([id number]) on 06/18/2024 4:57:53 PM Confirmed by Anthony Penn MD ([id number]) on 06/19/2024 3:21:54 PM MUSE SYSTEM 06/18/2024 12:5 3 AM EST 06/19/2024 3:21 PM EST Samantha Babb MD ECG ORDERABLES MUSE SYSTEM * Sodium (06/17/2024 5:50 PM EST) Sodium 141 135 - 145 mMol/L 06/17/2024 6:38 PM EST [facility] Blood VENOUS BLOOD SPECIMEN / Unknown Venipuncture / Unknown 06/17/2024 5:50 PM EST 06/17/2024 6:07 PM EST Channing Ballesteros MD CHEMISTRY ORDERABLES [facility] [place] [address] * (ABNORMAL) Hepatic Function Panel (06/17/2024 11:58 AM EST) Albumin 4.2 3.2 - 5.2 g/dL 06/17/2024 12:45 PM [facility] Aspartate Aminotransferase 37 <=39 unit/L 06/17/2024 12:45 PM [facility] Alanine Aminotransferase 58(H) 0 - 55 unit/L 06/17/2024 12:45 PM [facility] Alkaline Phosphatase 118 40 - 130 unit/L 06/17/2024 12:45 PM [facility] Bilirubin, Total 0.2 <=1.3 mg/dL 06/17/2024 12:45 PM [facility] Bilirubin, Direct <0.2 0.0 - 0.3 mg/dL 06/17/2024 12:45 PM [facility] Protein, Total 7.1 6.1 - 8.0 g/dL 06/17/2024 12:45 PM EST [facility] Blood VENOUS BLOOD SPECIMEN / Unknown Venipuncture / Unknown 06/17/2024 11:58 AM EST 06/17/2024 12:11 PM EST Pamela Johnson DO CHEMISTRY ORDERAB LES Performing Organization Address City/[facility]/ZIP Co de Phone Number [facility] [place] [address] * Sodium (06/17/2024 11:58 AM EST) Sodium 141 135 - 145 mMol/L 06/17/2024 12:45 PM EST [facility] Blood VENOUS BLOOD SPECIMEN / Unknown Venipuncture / Unknown 06/17/2024 11:58 AM EST 06/17/2024 12:11 PM EST Channing Ballesteros MD CHEMISTRY ORDERABLES Performing Organization Address [facility]/ZIP Co de Phone Number [facility] [place] [address] * Sodium (06/17/2024 6:23 AM EST) Sodium 140 135 - 145 mMol/L 06/17/2024 6:53 AM EST [facility] Blood VENOUS BLOOD SPECIMEN / Unknown Venipuncture / Unknown 06/17/2024 6:23 AM EST 06/17/2024 6:29 AM EST Channing Ballesteros MD CHEMISTRY ORDERABLES Performing Organization Address City/[facility]/ZIP Co de Phone Number [facility] [place] [address] * (ABNORMAL) CBC (with Diff) (06/17/2024 12:22 AM EST) White Blood Cell 6.81 4.00 - 9.50 x10(3)/mc L 06/17/2024 12:37 AM EST [facility] Red Blood Cell 5.20 4.58 - 5.54 x10(6)/mc L 06/17/2024 12:37 AM EST [facility] Hemoglobin 12.9(L) 13.7 - 16.5 g/dL 06/17/2024 12:37 AM EST [facility] Hematocrit 37.9(L) 40.5 - 48.5 % 06/17/2024 12:37 AM [facility] Mean Cell Volume 72.9(L) 82.9 - 93.1 fL 06/17/2024 12:37 AM [facility] Mean Cell Hemoglobin 24.8(L) 27.5 - 32.1 pg 06/17/2024 12:37 AM [facility] Mean Cell Hemoglobin Concentration 34.0 32.0 - 35.7 g/dL 06/17/2024 12:37 AM [facility] Platelet 301 145 - 357 x10(3)/mc L 06/17/2024 12:37 AM [facility] Mean Platelet Volume 9.0 7.6 - 12.9 fL 06/17/2024 12:37 AM [facility] RDW Standard Deviation 38.8 36.0 - 45.0 fL 06/17/2024 12:37 AM [facility] RDW coefficient of variation 14.9(H) 11.4 - 13.8 % 06/17/2024 12:37 AM [facility] NRBC% auto 0.0 % 06/17/2024 12:37 AM [facility] NRBC Absolute <0.01 <0.01 x10(3)/mc L 06/17/2024 12:37 AM [facility] Neutrophil % 58.2 % 06/17/2024 12:37 AM [facility] Neutrophil Absolute (ANC) - Automated 3.96 1.70 - 6.10 x10(3)/mc L 06/17/2024 12:37 AM [facility] Lymph % 30.1 % 06/17/2024 12:37 AM [facility] Lymph Absolute 2.05 0.90 - 3.20 x10(3)/mc L 06/17/2024 12:37 AM [facility] Monocyte % 9.8 % 06/17/2024 12:37 AM [facility] Monocyte Absolute 0.67 0.30 - 0.90 x10(3)/mc L 06/17/2024 12:37 AM EST [facility] Eos % 1.0 % 06/17/2024 12:37 AM [facility] Eos Absolute 0.07 0.00 - 0.40 x10(3)/mc L 06/17/2024 12:37 AM EST [facility] Basophil % 0.3 % 06/17/2024 12:37 AM [facility] Baso Absolute <0.04 0.00 - 0.10 x10(3)/mc L 06/17/2024 12:37 AM [facility] Immature Gran % 0.6 % 12:37 AM [facility] Immature Gran Absolute 0.04 0.00 - 0.04 x10(3)/mc L 06/17/2024 12:37 AM [facility] Blood VENOUS BLOOD SPECIMEN / Unknown Venipuncture / Unknown 06/17/2024 12:22 AM EST 06/17/2024 12:28 AM EST Martinez Reynolds MD HEMATOLOGY ORDERABLE S [facility] [place] [address] * Phosphorus (06/17/2024 12:22 AM EST) Phosphorus 4.3 2.5 - 4.5 mg/dL 06/17/2024 12:58 AM EST [facility] Blood VENOUS BLOOD SPECIMEN / Unknown Venipuncture / Unknown 06/17/2024 12:22 AM EST 06/17/2024 12:28 AM EST Martinez Reynolds MD CHEMISTRY ORDERABLES [facility] [place] [address] * Magnesium (06/17/2024 12:22 AM EST) Magnesium 0.88 0.69 - 1.07 mMol/L 06/17/2024 12:58 AM EST [facility] Blood VENOUS BLOOD SPECIMEN / Unknown Venipuncture / Unknown 06/17/2024 12:22 AM EST 06/17/2024 12:28 AM EST Martinez Reynolds MD CHEMISTRY ORDERABLES [facility] [place] [address] * Basic Metabolic Panel (06/17/2024 12:22 AM EST) Glucose 99 65 - 199 mg/dL 06/17/2024 1:12 AM [facility] Comment:Glucose Concentratio n >=200 mg/dL plus symptoms is consistent with Diabetes Mellitus. Blood Urea Nitrogen 14 10 - 20 mg/dL 06/17/2024 1:12 AM [facility] Creatinine 0.90 0.80 - 1.50 mg/dL 06/17/2024 1:12 AM [facility] Sodium 140 135 - 145 mMol/L 06/17/2024 1:12 AM [facility] Potassium 4.1 3.5 - 5.0 mMol/L 06/17/2024 1:12 AM [facility] Chloride 105 98 - 107 mMol/L 06/17/2024 1:12 AM [facility] Carbon Dioxide 24 22 - 31 mMol/L 06/17/2024 1:12 AM [facility] Anion Gap 11 5 - 15 mMol/L 06/17/2024 1:12 AM [facility] Calcium 9.4 8.5 - 10.5 mg/dL 06/17/2024 1:12 AM [facility] Est Glomerular Filtration Rate - Male 115 mL/min/1. 73 m?? 06/17/2024 1:12 AM [facility] Comment: This patient's estimated [...] Reynolds MD CHEMISTRY ORDERABLES Performing Organization Address City/[facility]/ZIP Co de Phone Number [facility] [place] [address] * Sodium (06/16/2024 6:37 PM EST) Sodium 142 135 - 145 mMol/L 06/16/2024 6:55 PM EST [facility] Blood VENOUS BLOOD SPECIMEN / Unknown Venipuncture / Unknown 06/16/2024 6:37 PM EST 06/16/2024 6:42 PM EST Channing Ballesteros MD CHEMISTRY ORDERABLES Performing Organization Address City/[facility]/ZIP Co de Phone Number [facility] [place] [address] * Sodium (06/16/2024 2:05 PM EST) Sodium 135 135 - 145 mMol/L 06/16/2024 2:54 PM EST [facility] Blood VENOUS BLOOD SPECIMEN / Unknown Venipuncture / Unknown 06/16/2024 2:05 PM EST 06/16/2024 2:23 PM EST Channing Ballesteros MD CHEMISTRY ORDERABLES [facility] [place] [address] * Sodium (06/16/2024 12:03 PM EST) Sodium 139 135 - 145 mMol/L 06/16/2024 1:02 PM EST [facility] Blood VENOUS BLOOD SPECIMEN / Unknown Venipuncture / Unknown 06/16/2024 12:03 PM EST 06/16/2024 12:06 PM EST Marline Calderon CLINICAL TRIALS NURSE CHEMISTRY ORDERABL ES [facility] [place] [address] * (ABNORMAL) Sodium (06/16/2024 6:00 AM EST) Sodium 131(L) 135 - 145 mMol/L 06/16/2024 6:26 AM EST [facility] Blood VENOUS BLOOD SPECIMEN / Unknown Venipuncture / Unknown 06/16/2024 6:00 AM EST 06/16/2024 6:03 AM EST Marline Calderon CLINICAL TRIALS NURSE CHEMISTRY ORDERABL ES [facility] [place] [address] * (ABNORMAL) CBC (with Diff) (06/16/2024 12:09 AM EST) White Blood Cell 7.71 4.00 - 9.50 x10(3)/mc L 06/16/2024 12:26 AM EST [facility] Red Blood Cell 4.69 4.58 - 5.54 x10(6)/mc L 06/16/2024 12:26 AM EST [facility] Hemoglobin 11.7(L) 13.7 - 16.5 g/dL 06/16/2024 12:26 AM EST [facility] Hematocrit 33.8(L) 40.5 - 48.5 % 06/16/2024 12:26 AM [facility] Mean Cell Volume 72.1(L) 82.9 - 93.1 fL 06/16/2024 12:26 AM [facility] Mean Cell Hemoglobin 24.9(L) 27.5 - 32.1 pg 06/16/2024 12:26 AM [facility] Mean Cell Hemoglobin Concentration 34.6 32.0 - 35.7 g/dL 06/16/2024 12:26 AM [facility] Platelet 241 145 - 357 x10(3)/mc L 06/16/2024 12:26 AM [facility] Mean Platelet Volume 9.3 7.6 - 12.9 fL 06/16/2024 12:26 AM [facility] RDW Standard Deviation 37.3 36.0 - 45.0 fL 06/16/2024 12:26 AM [facility] RDW coefficient of variation 14.5(H) 11.4 - 13.8 % 06/16/2024 12:26 AM [facility] NRBC% auto 0.0 % 06/16/2024 12:26 AM [facility] NRBC Absolute <0.01 <0.01 x10(3)/mc L 06/16/2024 12:26 AM [facility] Neutrophil % 64.4 % 06/16/2024 12:26 AM [facility] Neutrophil Absolute (ANC) - Automated 4.96 1.70 - 6.10 x10(3)/mc L 06/16/2024 12:26 AM [facility] Lymph % 23.7 % 06/16/2024 12:26 AM [facility] Lymph Absolute 1.83 0.90 - 3.20 x10(3)/mc L 06/16/2024 12:26 AM [facility] Monocyte % 9.7 % 06/16/2024 12:26 AM [facility] Monocyte Absolute 0.75 0.30 - 0.90 x10(3)/mc L 06/16/2024 12:26 AM EST [facility] Eos % 1.0 % 06/16/2024 12:26 AM EST [facility] Eos Absolute 0.08 0.00 - 0.40 x10(3)/mc L 06/16/2024 12:26 AM EST [facility] Basophil % 0.4 % 06/16/2024 12:26 AM EST [facility] Baso Absolute <0.04 0.00 - 0.10 x10(3)/mc L 06/16/2024 12:26 AM EST [facility] Immature Gran % 0.8 % 12:26 AM [facility] Immature Gran Absolute 0.06(H) 0.00 - 0.04 x10(3)/mc L 06/16/2024 12:26 AM [facility] Blood VENOUS BLOOD SPECIMEN / Unknown Venipuncture / Unknown 06/16/2024 12:09 AM EST 06/16/2024 12:21 AM EST Martinez Reynolds MD HEMATOLOGY ORDERABLE S [facility] [place] [address] * Phosphorus (06/16/2024 12:09 AM EST) Phosphorus 3.2 2.5 - 4.5 mg/dL 06/16/2024 12:50 AM EST [facility] Blood VENOUS BLOOD SPECIMEN / Unknown Venipuncture / Unknown 06/16/2024 12:09 AM EST 06/16/2024 12:21 AM EST Martinez Reynolds MD CHEMISTRY ORDERABLES [facility] [place] [address] * Magnesium (06/16/2024 12:09 AM EST) Magnesium 0.85 0.69 - 1.07 mMol/L 06/16/2024 12:50 AM [facility] Blood VENOUS BLOOD SPECIMEN / Unknown Venipuncture / Unknown 06/16/2024 12:09 AM EST 06/16/2024 12:21 AM EST Martinez Reynolds MD CHEMISTRY ORDERABLES [facility] [place] [address] * (ABNORMAL) Basic Metabolic Panel (06/16/2024 12:09 AM EST) Glucose 92 65 - 199 mg/dL 06/16/2024 12:50 AM [facility] Comment:Glucose Concentratio n >=200 mg/dL plus symptoms is consistent with Diabetes Mellitus. Blood Urea Nitrogen 12 10 - 20 mg/dL 06/16/2024 12:50 AM [facility] Creatinine 0.92 0.80 - 1.50 mg/dL 06/16/2024 12:50 AM [facility] Sodium 131(L) 135 - 145 mMol/L 06/16/2024 12:50 AM [facility] Potassium 3.9 3.5 - 5.0 mMol/L 06/16/2024 12:50 AM [facility] Chloride 99 98 - 107 mMol/L 06/16/2024 12:50 AM [facility] Carbon Dioxide 22 22 - 31 mMol/L 06/16/2024 12:50 AM [facility] Anion Gap 10 5 - 15 mMol/L 06/16/2024 12:50 AM [facility] Calcium 8.3(L) 8.5 - 10.5 mg/dL 06/16/2024 12:50 AM [facility] Est Glomerular Filtration Rate - Male 112 mL/min/1. 73 m?? 06/16/2024 12:50 AM [facility] Comment: This patient's estimated [...] Reynolds MD CHEMISTRY ORDERABLES Performing Organization Address City/[facility]/[place] [address] * (ABNORMAL) Sodium (2024 5:58 PM EST) Sodium 129(L) 135 - 145 mMol/L 2024 6:37 PM EST [facility] Blood VENOUS BLOOD SPECIMEN / Unknown Venipuncture / Unknown 2024 5:58 PM EST 2024 6:05 PM EST Marline Calderon APRN CHEMISTRY ORDERABL ES Performing Organization Address [facility] [place] [address] * MRI Brain wwo Contrast (Generic) (2024 4:20 PM EST) WORKSTATION ID [id number] DH RAD Anatomical Region Laterality Modality Head [...] who have questions please contact the health rn wound care that requested your imaging first. ? Electronically signed by: Raudel Heredia MD, [facility] ([phone]), at 2024 4:46 PM Narrative 2024 4:46 [...] clip with its blades near the right DIRECTOR OF INSTITUTIONAL RESEARCH. Procedure Note Raudel Heredia MD - 2024 [...] aneurysm clipwith its blades near the right DIRECTOR OF INSTITUTIONAL RESEARCH. IMPRESSION Homogeneously enhancing 3.5 cm mass along [...] patients who have questions please contactthe health rn wound care that requested your imaging first. Electronically signed by: Raudel Heredia MD, [facility]([phone]), at 2024 4:46 PM Marline Calderon APRN IMG MRI ORDERABLES * (ABNORMAL) Sodium (2024 12:07 PM EST) Sodium 129(L) 135 - 145 mMol/L 2024 12:47 PM EST [facility] Blood VENOUS BLOOD SPECIMEN / Unknown Venipuncture / Unknown 2024 12:07 PM EST 2024 12:33 PM EST Marline Calderon APRN CHEMISTRY ORDERABL ES [facility] [place] [address] * (ABNORMAL) Sodium (2024 5:54 AM EST) Sodium 128(L) 135 - 145 mMol/L 2024 6:42 AM [facility] Blood VENOUS BLOOD SPECIMEN / Unknown Venipuncture / Unknown 2024 5:54 AM EST 2024 6:14 AM EST Marline Calderon CLINICAL TRIALS NURSE CHEMISTRY ORDERABL ES [facility] [place] [address] * (ABNORMAL) CBC (with Diff) (2024 12:06 AM EST) Pathologist [facility] White Blood Cell 6.30 4.00 - 9.50 x10(3)/mc L 2024 12:17 AM [facility] Red Blood Cell 4.79 4.58 - 5.54 x10(6)/mc L 2024 12:17 AM [facility] Hemoglobin 11.9(L) 13.7 - 16.5 g/dL 2024 12:17 AM [facility] Hematocrit 34.2(L) 40.5 - 48.5 % 2024 12:17 AM [facility] Mean Cell Volume 71.4(L) 82.9 - 93.1 fL 2024 12:17 AM [facility] Mean Cell Hemoglobin 24.8(L) 27.5 - 32.1 pg 2024 12:17 AM [facility] Mean Cell Hemoglobin Concentration 34.8 32.0 - 35.7 g/dL 2024 12:17 AM [facility] Platelet 269 145 - 357 x10(3)/mc L 2024 12:17 AM [facility] Mean Platelet Volume 9.1 7.6 - 12.9 fL 2024 12:17 AM [facility] RDW Standard Deviation 35.5(L) 36.0 - 45.0 fL 2024 12:17 AM [facility] RDW coefficient of variation 13.9(H) 11.4 - 13.8 % 2024 12:17 AM [facility] NRBC% auto 0.0 % 2024 12:17 AM [facility] NRBC Absolute <0.01 <0.01 x10(3)/mc L 2024 12:17 AM [facility] Neutrophil % 57.9 % 2024 12:17 AM [facility] Neutrophil Absolute (ANC) - Automated 3.65 1.70 - 6.10 x10(3)/mc L 2024 12:17 AM [facility] Lymph % 30.3 % 2024 12:17 AM [facility] Lymph Absolute 1.91 0.90 - 3.20 x10(3)/mc L 2024 12:17 AM [facility] Monocyte % 9.7 % 2024 12:17 AM [facility] Monocyte Absolute 0.61 0.30 - 0.90 x10(3)/mc L 2024 12:17 AM [facility] Eos % 1.3 % 2024 12:17 AM [facility] Eos Absolute 0.08 0.00 - 0.40 x10(3)/mc L 2024 12:17 AM [facility] Basophil % 0.3 % 2024 12:17 AM [facility] Baso Absolute <0.04 0.00 - 0.10 x10(3)/mc L 2024 12:17 AM [facility] Immature Gran % 0.5 % 12:17 AM [facility] Immature Gran Absolute <0.04 0.00 - 0.04 x10(3)/mc L 2024 12:17 AM EST [facility] Blood VENOUS BLOOD SPECIMEN / Unknown Venipuncture / Unknown 2024 12:06 AM EST 2024 12:10 AM EST Martinez Reynolds MD HEMATOLOGY ORDERABLE S [facility] [place] [address] * Phosphorus (2024 12:06 AM EST) Phosphorus 2.8 2.5 - 4.5 mg/dL 2024 12:39 AM EST [facility] Blood VENOUS BLOOD SPECIMEN / Unknown Venipuncture / Unknown 2024 12:06 AM EST 2024 12:10 AM EST Martinez Reynolds MD CHEMISTRY ORDERABLES Performing Organization Address City/[facility] Co de Phone Number [facility] [place] [address] * Magnesium (2024 12:06 AM EST) Magnesium 0.79 0.69 - 1.07 mMol/L 2024 12:39 AM EST [facility] Blood VENOUS BLOOD SPECIMEN / Unknown Venipuncture / Unknown 2024 12:06 AM EST 2024 12:10 AM EST Martinez Reynolds MD CHEMISTRY ORDERABLES Performing Organization Address City/[facility] Co de Phone Number [facility] [place] [address] * (ABNORMAL) Basic Metabolic Panel (2024 12:06 AM EST) Glucose 103 65 - 199 mg/dL 2024 12:39 AM [facility] Comment:Glucose Concentratio n >=200 mg/dL plus symptoms is consistent with Diabetes Mellitus. Blood Urea Nitrogen 14 10 - 20 mg/dL 2024 12:39 AM [facility] Creatinine 0.74(L) 0.80 - 1.50 mg/dL 2024 12:39 AM [facility] Sodium 128(L) 135 - 145 mMol/L 2024 12:39 AM [facility] Potassium 4.1 3.5 - 5.0 mMol/L 2024 12:39 AM [facility] Chloride 97(L) 98 - 107 mMol/L 2024 12:39 AM [facility] Carbon Dioxide 19(L) 22 - 31 mMol/L 2024 12:39 AM [facility] Anion Gap 12 5 - 15 mMol/L 2024 12:39 AM [facility] Calcium 8.1(L) 8.5 - 10.5 mg/dL 2024 12:39 AM [facility] Est Glomerular Filtration Rate - Male 122 mL/min/1. 73 m?? 2024 12:39 AM [facility] Comment: This patient's estimated [...] Reynolds MD CHEMISTRY ORDERABLES Performing Organization Address City/[facility]/ZIP Co de Phone Number [facility] [place] [address] * (ABNORMAL) Sodium (06/14/2024 6:49 PM EST) Sodium 126(L) 135 - 145 mMol/L 06/14/2024 7:17 PM EST [facility] Blood VENOUS BLOOD SPECIMEN / Unknown Venipuncture / Unknown 06/14/2024 6:49 PM EST 06/14/2024 6:53 PM EST Marline Calderon APRN CHEMISTRY ORDERABL ES Performing Organization Address [facility] Co de Phone Number [facility] [place] [address] * EEG Continuous Monitoring Inpatient (06/14/2024 3:33 [...] - 145 mMol/L 06/14/2024 3:18 PM EST [facility] Blood VENOUS BLOOD SPECIMEN / Unknown Venipuncture / Unknown 06/14/2024 2:15 PM EST 06/14/2024 2:36 PM EST Mariola Alfred MD CHEMISTRY ORDERABLES Performing Organization Address City/[facility]/ZIP Co de Phone Number [facility] [place] [address] * (ABNORMAL) Sodium (06/14/2024 12:12 PM EST) Sodium 125(L) 135 - 145 mMol/L 06/14/2024 12:48 PM EST [facility] Blood VENOUS BLOOD SPECIMEN / Unknown Venipuncture / Unknown 06/14/2024 12:12 PM EST 06/14/2024 12:20 PM EST Mariola Alfred MD CHEMISTRY ORDERABLES [facility] [place] [address] * (ABNORMAL) Sodium (06/14/2024 10:35 AM EST) Sodium 125(L) 135 - 145 mMol/L 06/14/2024 11:21 AM EST [facility] Blood VENOUS BLOOD SPECIMEN / Unknown Venipuncture / Unknown 06/14/2024 10:35 AM EST 06/14/2024 10:44 AM EST Mariola Alfred MD CHEMISTRY ORDERABLES Performing Organization Address City/[facility]/ZIP Co de Phone Number [facility] [place] [address] * Request For 2nd Read CT Head (06/14/2024 9:46 AM EST) WORKSTATION ID [id number] [facility] Anatomical Region Laterality Modality Head SO Impressions [...] who have questions please contact the health rn wound care that requested your imaging first. ? Electronically signed by: Galen Balderas [facility] ([phone]), at 06/14/2024 10:41 AM Narrative 06/14/2024 10:41 AM EST EXAMINATION: REQUEST FOR 2ND READ CT HEAD CLINICAL HISTORY: New seizure with known mass, ?enlargening. Presenting with seizure; Sending Institution [facility]; Date of exam [id number]; I believe a reinterpretation of this exam may alter care of Patient. Yes TECHNIQUE: Reinterpretation of noncontrast CT head performed at [facility] 06/13/2024 at 2143 hours COMPARISON: Noncontrast [...] patients who have questions please contactthe health rn wound care that requested your imaging first. Electronically signed by: Galen Balderas [facility]([phone]), at 06/14/2024 10:41 AM Lexie Osullivan APRN IMG OUTSIDE INTERP RETATION ORDERABLES * (ABNORMAL) Urinalysis Microscopic (06/14/2024 8:06 AM EST) Bacteria, Urine None None /HPF 12:26 PM [facility] Amorphous Crystals, Urine Many(A) None /HPF 06/14/2024 12:26 PM [facility] RBC, Urine 1 0 - 3 /HPF 06/14/2024 12:26 PM [facility] WBC, Urine 1 0 - 3 /HPF 06/14/2024 12:26 PM [facility] Squamous Epithelial Cells, Urine 0 0 - 5 /HPF 06/14/2024 12:26 PM [facility] Hyaline Casts, Urine 0 0 - 2 /LPF 06/14/2024 12:26 PM [facility] Urine URINE SPECIMEN / Unknown Non Blood Collection / Unknown 06/14/2024 8:06 AM EST 06/14/2024 8:52 AM EST Marline Calderon APRN URINE ORDERABLES Performing Organization Address [facility] Co de Phone Number [facility] [place] [address] * Urinalysis Microscopic Exam (06/14/2024 8:06 AM EST) Urine URINE SPECIMEN / Unknown Non Blood Collection / Unknown 06/14/2024 8:06 AM EST 06/14/2024 8:52 AM EST Marline Calderon APRN URINE ORDERABLES Performing Organization Address City/[facility] Co de Phone Number [facility] [place] [address] * (ABNORMAL) Urinalysis Dipstick (06/14/2024 8:06 AM EST) Glucose, Urine Dipstick Negative Negative 06/14/2024 12:26 PM [facility] Protein, Urine Dipstick Negative Negative 06/14/2024 12:26 PM [facility] Bilirubin, Urine Dipstick Negative Negative 06/14/2024 12:26 PM [facility] Comment:Clinical correlation required for positive Urine Bilirubin results as false positive may occur with some drugs and drug related products. If a false positive is suspected a serum total bilirubin should be considered if clinically indicated. Urobilinogen, Urine Dipstick Normal Normal, 0.2 mg/dL, 1.0 mg/dL 06/14/2024 12:26 PM [facility] pH, Urine (dipstick) 7.0 5.0 - 8.0 06/14/2024 12:26 PM [facility] Blood, Urine Dipstick Negative Negative 06/14/2024 12:26 PM [facility] Ketone, Urine Dipstick Negative Negative 06/14/2024 12:26 PM [facility] Nitrite, Urine Dipstick Negative Negative 06/14/2024 12:26 PM [facility] Leukocytes, Urine Dipstick Negative Negative 06/14/2024 12:26 PM [facility] Specific [place] Urine Automated 1.016 1.005 - 1.030 06/14/2024 12:26 PM [facility] Appearance, Urine Dipstick Turbid(A) Clear 06/14/2024 12:26 PM [facility] Color, Urine Dipstick Yellow Yellow, Dark Yellow 06/14/2024 12:26 PM [facility] CULTURE ADDED? 06/14/2024 12:26 PM [facility] Urine URINE SPECIMEN / Unknown Non Blood Collection / Unknown 06/14/2024 8:06 AM EST 06/14/2024 8:52 AM EST Marline Calderon APRN URINE ORDERABLES [facility] [place] [address] * (ABNORMAL) Sodium (06/14/2024 8:06 AM EST) Sodium 124(L) 135 - 145 mMol/L 06/14/2024 9:59 AM EST [facility] Blood VENOUS BLOOD SPECIMEN / Unknown Venipuncture / Unknown 06/14/2024 8:06 AM EST 06/14/2024 8:53 AM EST Mariola Alfred MD CHEMISTRY ORDERABLES [facility] [place] [address] * Electrolytes, urine, random (06/14/2024 8:06 AM EST) Sodium, Urine 76 mMol/L 06/14/2024 10:44 AM EST [facility] Potassium, Urine 41 mMol/L 06/14/2024 10:44 AM EST [facility] Chloride, Urine 52 mMol/L 06/14/2024 10:44 AM EST [facility] Urine URINE SPECIMEN / Unknown Non Blood Collection / Unknown 06/14/2024 8:06 AM EST 06/14/2024 8:52 AM EST Mariola Alfred MD URINE ORDERABLES Performing Organization Address City/[facility]/ZIP Co de Phone Number [facility] [place] [address] * Osmolality, urine, random (06/14/2024 8:06 AM EST) Osmolality, Urine 496 50 - 1,200 mOsm/kg 06/14/2024 10:55 AM [facility] Urine URINE SPECIMEN / Unknown Non Blood Collection / Unknown 06/14/2024 8:06 AM EST 06/14/2024 8:52 AM EST Mariola Alfred MD URINE ORDERABLES [facility] [place] [address] * (ABNORMAL) CBC (with Diff) (06/14/2024 5:27 AM EST) White Blood Cell 8.68 4.00 - 9.50 x10(3)/mc L 06/14/2024 5:54 AM [facility] Red Blood Cell 5.08 4.58 - 5.54 x10(6)/mc L 06/14/2024 5:54 AM [facility] Hemoglobin 12.5(L) 13.7 - 16.5 g/dL 06/14/2024 5:54 AM [facility] Hematocrit 35.8(L) 40.5 - 48.5 % 06/14/2024 5:54 AM [facility] Mean Cell Volume 70.5(L) 82.9 - 93.1 fL 06/14/2024 5:54 AM [facility] Mean Cell Hemoglobin 24.6(L) 27.5 - 32.1 pg 06/14/2024 5:54 AM [facility] Mean Cell Hemoglobin Concentration 34.9 32.0 - 35.7 g/dL 06/14/2024 5:54 AM [facility] Platelet 284 145 - 357 x10(3)/mc L 06/14/2024 5:54 AM [facility] Mean Platelet Volume 9.2 7.6 - 12.9 fL 06/14/2024 5:54 AM [facility] RDW Standard Deviation 34.3(L) 36.0 - 45.0 fL 06/14/2024 5:54 AM [facility] RDW coefficient of variation 13.6 11.4 - 13.8 % 06/14/2024 5:54 AM [facility] NRBC% auto 0.0 % 06/14/2024 5:54 AM [facility] NRBC Absolute <0.01 <0.01 x10(3)/mc L 06/14/2024 5:54 AM [facility] Neutrophil % 81.7 % 06/14/2024 5:54 AM [facility] Neutrophil Absolute (ANC) - Automated 7.09(H) 1.70 - 6.10 x10(3)/mc L 06/14/2024 5:54 AM [facility] Lymph % 13.0 % 06/14/2024 5:54 AM [facility] Lymph Absolute 1.13 0.90 - 3.20 x10(3)/mc L 06/14/2024 5:54 AM [facility] Monocyte % 4.3 % 06/14/2024 5:54 AM [facility] Monocyte Absolute 0.37 0.30 - 0.90 x10(3)/mc L 06/14/2024 5:54 AM [facility] Eos % 0.2 % 06/14/2024 5:54 AM [facility] Eos Absolute <0.04 0.00 - 0.40 x10(3)/mc L 06/14/2024 5:54 AM EST [facility] Basophil % 0.2 % 06/14/2024 5:54 AM EST [facility] Baso Absolute <0.04 0.00 - 0.10 x10(3)/mc L 06/14/2024 5:54 AM EST [facility] Immature Gran % 0.6 % 5:54 AM EST [facility] Immature Gran Absolute 0.05(H) 0.00 - 0.04 x10(3)/mc L 06/14/2024 5:54 AM EST [facility] Blood VENOUS BLOOD SPECIMEN / Unknown Venipuncture / Unknown 06/14/2024 5:27 AM EST 06/14/2024 5:45 AM EST Martinez Reynolds MD HEMATOLOGY ORDERABLE S [facility] [place] [address] * Phosphorus (06/14/2024 5:27 AM EST) Phosphorus 2.8 2.5 - 4.5 mg/dL 06/14/2024 8:36 AM EST [facility] Blood VENOUS BLOOD SPECIMEN / Unknown Venipuncture / Unknown 06/14/2024 5:27 AM EST 06/14/2024 5:45 AM EST Martinez Reynolds MD CHEMISTRY ORDERABLES [facility] [place] [address] * Magnesium (06/14/2024 5:27 AM EST) Magnesium 0.83 0.69 - 1.07 mMol/L 06/14/2024 6:22 AM EST [facility] Blood VENOUS BLOOD SPECIMEN / Unknown Venipuncture / Unknown 06/14/2024 5:27 AM EST 06/14/2024 5:45 AM EST Martinez Reynolds MD CHEMISTRY ORDERABLES [facility] [place] [address] * (ABNORMAL) Basic Metabolic Panel (06/14/2024 5:27 AM EST) Glucose 109 65 - 199 mg/dL 06/14/2024 6:22 AM EST [facility] Comment:Glucose Concentratio n >=200 mg/dL plus symptoms is consistent with Diabetes Mellitus. Blood Urea Nitrogen 14 10 - 20 mg/dL 06/14/2024 6:22 AM [facility] Creatinine 0.76(L) 0.80 - 1.50 mg/dL 06/14/2024 6:22 AM [facility] Sodium 124(L) 135 - 145 mMol/L 06/14/2024 6:22 AM [facility] Potassium 4.0 3.5 - 5.0 mMol/L 06/14/2024 6:22 AM [facility] Chloride 93(L) 98 - 107 mMol/L 06/14/2024 6:22 AM [facility] Carbon Dioxide 19(L) 22 - 31 mMol/L 06/14/2024 6:22 AM [facility] Anion Gap 12 5 - 15 mMol/L 06/14/2024 6:22 AM [facility] Calcium 7.9(L) 8.5 - 10.5 mg/dL 06/14/2024 6:22 AM [facility] Est Glomerular Filtration Rate - Male 122 mL/min/1. 73 m?? 06/14/2024 6:22 AM [facility] Comment: This patient's estimated [...] AM EST Martinez Reynolds MD CHEMISTRY ORDERABLES [facility] [place] [address] * XR Chest One View (06/14/2024 4:02 AM EST) ZUGGI WORKSTATION ID [id number] RAD Anatomical Region Laterality Modality Chest N/A [...] who have questions please contact the health rn wound care that requested your imaging first. ? Narrative [...] patients who have questions please contactthe health rn wound care that requested your imaging first. Mariola Alfred MD IMG DX ORDERABLES * (ABNORMAL) Sodium (06/14/2024 3:32 AM EST) Sodium 122(L) 135 - 145 mMol/L 06/14/2024 4:02 AM EST [facility] Blood VENOUS BLOOD SPECIMEN / Unknown Venipuncture / Unknown 06/14/2024 3:32 AM EST 06/14/2024 3:37 AM EST Mariola Alfred MD CHEMISTRY ORDERABLES [facility] [place] [address] * (ABNORMAL) Blood Gas, Venous POC (06/14/2024 1:35 AM EST) pH, Venous 7.39 7.32 - 7.42 06/14/2024 1:36 AM [facility] PCO2, Venous 37(L) 38 - 58 mmHg 06/14/2024 1:36 AM [facility] PO2, Venous 27 16 - 65 mmHg 06/14/2024 1:36 AM [facility] Bicarbonate, Venous 21.9(L) 22 - 31 mmol/L 06/14/2024 1:36 AM [facility] Base Excess, Venous -3.1(L) 1.9 - 4.5 mmol/L 06/14/2024 1:36 AM [facility] Hemoglobin, Venous 13.4(L) 13.7 - 16.5 g/dL 06/14/2024 1:36 AM [facility] Oxyhemoglobin, Venous 46.8 % 06/14/2024 1:36 AM [facility] Carboxyhemoglobin , Venous 0.7 % 06/14/2024 1:36 AM [facility] Comment: Nonsmokers: 0.5-1.5% COHB ?? Smokers: Variable ??but usually less than 10% ?? Toxic: 20-30% COHB ?? Lethal: Greater than 60% COHB Methemoglobin, Venous 0.3 <=1.5 % 06/14/2024 1:36 AM [facility] Sodium, Venous 123(L) 135 - 145 mmol/L 06/14/2024 1:36 AM [facility] Potassium, Venous 3.7 3.5 - 5.0 mmol/L 06/14/2024 1:36 AM [facility] Chloride, Venous 92(L) 98 - 107 mmol/L 06/14/2024 1:36 AM [facility] Glucose, Venous 85 65 - 199 mg/dL 06/14/2024 1:36 AM [facility] Comment:Glucose Concentratio n >=200 mg/dL plus symptoms is consistent with Diabetes Mellitus. Lactate, Venous 2.3(H) 0.5 - 2.2 mmol/L 06/14/2024 1:36 AM [facility] Ionized Calcium, Venous 1.10(L) 1.15 - 1.33 mmol/L 06/14/2024 1:36 AM EST [facility] Blood VENOUS BLOOD SPECIMEN / Unknown 06/14/2024 1:35 AM EST 06/14/2024 1:36 AM EST Mariola Alfred MD POINT OF CARE TEST O ELISABET Performing Organization Address [facility] Co de Phone Number [facility] [place] [address] * POC, GLUCOSE (06/14/2024 1:06 AM EST) Glucometer, POC 113 65 - 199 mg/dL 06/14/2024 1:06 AM EST [facility] Comment:Supplemental ranges: <140 mg/dL before meals <180 mg/dL all other times of the day. Blood CAPILLARY BLOOD / Unknown 06/14/2024 1:06 AM EST 06/14/2024 1:06 AM EST Mariola Alfred MD POINT OF CARE TEST O ELISABET Performing Organization Address [facility] Co de Phone Number [facility] [place] [address] * EKG 12 Lead (06/14/2024 1:04 AM EST) Ventricular rate 85 BPM MUSE SYSTEM Atrial Rate 85 BPM MUSE SYSTEM P-R Interval 182 ms MUSE SYSTEM QRS Duration 94 ms MUSE SYSTEM Q-T Interval 388 ms MUSE SYSTEM QTC Calculated (Bezet) 461 ms MUSE SYSTEM Calculated P [place] 35 degrees MUSE SYSTEM Calculated R [place] 57 degrees MUSE SYSTEM Calculated T [place] 48 degrees MUSE SYSTEM INTERPRETATION Normal sinus rhythm Normal ECG When compared with ECG of 01-MAR-2018 09:20, Nonspecific T wave abnormality no longer evident in Inferior leads T wave inversion no longer evident in Lateral leads I personally reviewed the tracing and edited the fellows interpretation Confirmed by fellow Rosalie Obrien ([id number]) on 2024 9:31:30 PM Confirmed by Hannah Marin MD ([id number]) on 06/17/2024 11:43:44 AM MUSE SYSTEM 06/14/2024 1:04 AM EST 06/17/2024 11:43 AM EST Mariola Alfred MD ECG ORDERABLES MUSE SYSTEM * Scan, Peripheral Blood (06/14/2024 1:03 AM EST) RBC Morphology Abnormal 06/14/2024 2:00 AM EST [facility] Platelet Estimate Normal Normal 06/14/2024 2:00 AM [facility] Microcyte 1-5 /HPF 06/14/2024 2:00 AM [facility] Tear Cell 1-5 /HPF 06/14/2024 2:00 AM [facility] Blood VENOUS BLOOD SPECIMEN / Unknown Venipuncture / Unknown 06/14/2024 1:03 AM EST 06/14/2024 1:08 AM EST Mariola Alfred MD HEMATOLOGY ORDERABLE S [facility] [place] [id number] * (ABNORMAL) CBC (with Diff) (06/14/2024 1:03 AM EST) White Blood Cell 10.38(H) 4.00 - 9.50 x10(3)/mc L 06/14/2024 2:00 AM [facility] Red Blood Cell 5.05 4.58 - 5.54 x10(6)/mc L 06/14/2024 2:00 AM [facility] Hemoglobin 12.2(L) 13.7 - 16.5 g/dL 06/14/2024 2:00 AM [facility] Hematocrit 35.5(L) 40.5 - 48.5 % 06/14/2024 2:00 AM [facility] Mean Cell Volume 70.3(L) 82.9 - 93.1 fL 06/14/2024 2:00 AM [facility] Mean Cell Hemoglobin 24.2(L) 27.5 - 32.1 pg 06/14/2024 2:00 AM [facility] Mean Cell Hemoglobin Concentration 34.4 32.0 - 35.7 g/dL 06/14/2024 2:00 AM [facility] Platelet 276 145 - 357 x10(3)/mc L 06/14/2024 2:00 AM [facility] Mean Platelet Volume 9.0 7.6 - 12.9 fL 06/14/2024 2:00 AM [facility] RDW Standard Deviation 33.6(L) 36.0 - 45.0 fL 06/14/2024 2:00 AM [facility] RDW coefficient of variation 13.4 11.4 - 13.8 % 06/14/2024 2:00 AM [facility] NRBC% auto 0.0 % 06/14/2024 2:00 AM [facility] NRBC Absolute <0.01 <0.01 x10(3)/mc L 06/14/2024 2:00 AM [facility] Neutrophil % 85.7 % 06/14/2024 2:00 AM [facility] Neutrophil Absolute (ANC) - Automated 8.90(H) 1.70 - 6.10 x10(3)/mc L 06/14/2024 2:00 AM [facility] Lymph % 8.4 % 06/14/2024 2:00 AM [facility] Lymph Absolute 0.87(L) 0.90 - 3.20 x10(3)/mc L 06/14/2024 2:00 AM [facility] Monocyte % 4.4 % 06/14/2024 2:00 AM [facility] Monocyte Absolute 0.46 0.30 - 0.90 x10(3)/mc L 06/14/2024 2:00 AM [facility] Eos % 0.5 % 06/14/2024 2:00 AM EST [facility] Eos Absolute 0.05 0.00 - 0.40 x10(3)/mc L 06/14/2024 2:00 AM [facility] Basophil % 0.2 % 06/14/2024 2:00 AM [facility] Baso Absolute <0.04 0.00 - 0.10 x10(3)/mc L 06/14/2024 2:00 AM EST [facility] Immature Gran % 0.8 % 2:00 AM [facility] Immature Gran Absolute 0.08(H) 0.00 - 0.04 x10(3)/mc L 06/14/2024 2:00 AM [facility] Blood VENOUS BLOOD SPECIMEN / Unknown Venipuncture / Unknown 06/14/2024 1:03 AM EST 06/14/2024 1:08 AM EST Martinez Reynolds MD HEMATOLOGY ORDERABLE S [facility] [place] [address] * (ABNORMAL) Phosphorus (06/14/2024 1:03 AM EST) Phosphorus 1.5(L) 2.5 - 4.5 mg/dL 06/14/2024 1:46 AM [facility] Blood VENOUS BLOOD SPECIMEN / Unknown Venipuncture / Unknown 06/14/2024 1:03 AM EST 06/14/2024 1:08 AM EST Martinez Reynolds MD CHEMISTRY ORDERABLES [facility] [place] [address] * Magnesium (06/14/2024 1:03 AM EST) Magnesium 0.90 0.69 - 1.07 mMol/L 06/14/2024 1:46 AM [facility] Blood VENOUS BLOOD SPECIMEN / Unknown Venipuncture / Unknown 06/14/2024 1:03 AM EST 06/14/2024 1:08 AM EST Martinez Reynolds MD CHEMISTRY ORDERABLES [facility] [place] [address] * (ABNORMAL) Basic Metabolic Panel (06/14/2024 1:03 AM EST) Glucose 95 65 - 199 mg/dL 06/14/2024 1:49 AM [facility] Comment:Glucose Concentratio n >=200 mg/dL plus symptoms is consistent with Diabetes Mellitus. Blood Urea Nitrogen 14 10 - 20 mg/dL 06/14/2024 1:49 AM [facility] Creatinine 0.80 0.80 - 1.50 mg/dL 06/14/2024 1:49 AM [facility] Sodium 123(L) 135 - 145 mMol/L 06/14/2024 1:49 AM [facility] Potassium 3.7 3.5 - 5.0 mMol/L 06/14/2024 1:49 AM [facility] Chloride 91(L) 98 - 107 mMol/L 06/14/2024 1:49 AM [facility] Carbon Dioxide 19(L) 22 - 31 mMol/L 06/14/2024 1:49 AM [facility] Anion Gap 13 5 - 15 mMol/L 06/14/2024 1:49 AM [facility] Calcium 8.1(L) 8.5 - 10.5 mg/dL 06/14/2024 1:49 AM [facility] Est Glomerular Filtration Rate - Male 120 mL/min/1. 73 m?? 06/14/2024 1:49 AM [facility] Comment: This patient's estimated [...] Reynolds MD CHEMISTRY ORDERABLES Performing Organization Address [facility] Co de Phone Number [facility] [place] [address] * (ABNORMAL) Osmolality (06/14/2024 1:03 AM EST) Osmolality 259(L) 275 - 295 mOsm/kg 06/14/2024 1:40 AM EST [facility] Blood VENOUS BLOOD SPECIMEN / Unknown Venipuncture / Unknown 06/14/2024 1:03 AM EST 06/14/2024 1:08 AM EST Mariola Alfred MD CHEMISTRY ORDERABLES Performing Organization Address [facility] Co de Phone Number [facility] [place] [address] * T3 Total (06/14/2024 1:03 AM EST) T3 Total 87 80 - 200 ng/dL 06/14/2024 1:46 AM EST [facility] Blood VENOUS BLOOD SPECIMEN / Unknown Venipuncture / Unknown 06/14/2024 1:03 AM EST 06/14/2024 1:08 AM EST Mariola Alfred MD CHEMISTRY ORDERABLES Performing Organization Address City/[facility]/ZIP Co de Phone Number [facility] [place] [address] * T4, free (06/14/2024 1:03 AM EST) Free T4 1.37 0.93 - 1.70 ng/dL 06/14/2024 1:46 AM EST [facility] Blood VENOUS BLOOD SPECIMEN / Unknown Venipuncture / Unknown 06/14/2024 1:03 AM EST 06/14/2024 1:08 AM EST Mariola Alfred MD CHEMISTRY ORDERABLES Performing Organization Address City/[facility]/ZIP Co de Phone Number [facility] [place] [address] * Zonisamide level (06/14/2024 1:03 AM EST) Zonisamide Lvl November 17 10 - 40 mcg/mL 06/16/2024 9:22 PM EST [facility] Comment: ADDITIONAL INFORMATION This test was developed and its performance characteristics determined by [facility] in a manner consistent with CLIA requirements. This test has not been cleared or approved by the U.S. Food and Drug Administration. Blood VENOUS BLOOD SPECIMEN / Unknown Venipuncture / Unknown 06/14/2024 1:03 AM EST 06/14/2024 1:08 AM EST Narrative [facility] 06/16/2024 9:22 PM EST Test Performed by: [facility] - [place] [id number] [employer] Specialist: Xavier Velásquez Ph.D.; CLIA# [id number] Mariola Alfred MD LAB SEND OUT ORDERAB LES Performing Organization Address City/[facility]/ZIP Co de Phone Number [facility] [phone] [place] [address] documented in this encounter Visit Diagnoses Not [...] DAILY, First dose (after last modification) on 06/14/24 at 0900, Until Discontinued, Routine [...] on 06/14/24 at 1700, Until Discontinued, Routine 1614 (Given [...] on Fri06/14/24 at 0900, Until Discontinued, Routine 943 (Given - Provider: Bell Amezcua RN) 0835 [...] Ann 06/17/24 at 2100, Until Discontinued, Routine 09 (Not [...] met)2013 (Given - Provider: Erik Dumont RN) 09 [...] 1221 (Given - Provider: Bell Amezcua RN) 003 (Given - Provider: Erik Dumont, HEATHER)3 (Given [...] Amezcua, HEATHER)1511 (Given - Provider: Bell Amezcua, RN) 2013 [...] Vomiting documented in this encounter Care Teams Crtt Relationship Specialty Start Date End Date Ren Vaz MD PCP - General Family Medicine 06/02/20 06/17/24 documented as of this encounter
--- OUTSIDE RECORDS SUMMARY | 2024-07-30 03:09 | XMS_ITS | Encounter Summary ---
Author Organization [facility] Address [place] [address] Care Team Providers Care Cobbler Mckay Name Role Phone Jimbo More Primary Care Provider + Encounter Details Date Type Department Care Team (Late st Contact Info) Description 06/14/2024 9:50 AM EST Ancillary Procedure Radiology Library [place] [facility] [place] [id number] Social History Tobacco Use Types Packs/Day Years Used Date Smoking Tobacco: Never Smokeless Tobacco: Never Alcohol Use Standard Drinks/Week Comments No 0 (1 standard drink = 0.6 oz pur e alcohol) [facility] Utilities Answer Date Recorded In [...] any time in the past [address] [facility], were you homeless or living in a correction (including now)? No 2024 IPV Inpatient Questions [...] Head (06/14/2024 9:46 AM EST) WORKSTATION ID [id number] RAD Anatomical Region Laterality Modality Head SO [...] who have questions please contact the health residential child care counselor that requested your imaging first. ? Narrative [...] patients who have questions please contactthe health residential child care counselor that requested your imaging first. Electronically signed by: Galen Balderas [facility]([phone]), at 06/14/2024 10:41 AM Lexie Osullivan CLASSICS TEACHER IMG OUTSIDE INTERP RETATION ORDERABLES documented in this encounter Visit Diagnoses Not on filedocumented in this encounter Care Teams Cobbler Mckay Relationship Specialty Start Date End Date Jimbo [place] [address] PCP - General Internal Medicine 06/18/24 documented as of this encounter
--- OUTSIDE RECORDS SUMMARY | 2024-07-30 03:09 | XMS_ITS | Encounter Summary ---
Author Organization [facility] Address [facility] [place] [address] Care Team Providers Care Low Pressure Boiler Operator Name Role Phone Ren Vaz MD Primary Care Provider [phone] Reason for Referral * Consultation (Routine) - Closed Specialty Diagnoses / Procedures Referred By Duyen bui Referred To Contact Maxillofacial Surgery Diagnoses Extraction of tooth needed Marques Hu DMD [address] [place] [address] Joe Nguyen PA [facility] [place] [address] Referral ID Status Reason Start Date Expiration Date V isits Requested Visits Authorized [id number] Closed Consult, Test & Treat 08/17/2021 08/17/2022 1 1 Encounter Details Date Type Department Care Team (Latest Contact Info) Description 08/17/2021 Transcribe Orders [place] [address] Gabriela Sandra Extraction of tooth needed Social [...] needed documented in this encounter Care Teams Low Pressure Boiler Operator Relationship Specialty Start Date End Date Ren Vaz MD PCP - General Family Medicine 06/02/20 06/17/24 documented as of this encounter
--- OUTSIDE RECORDS SUMMARY | 2024-07-30 03:09 | XMS_ITS | Encounter Summary ---
Author Organization [facility] Address [address] [facility] [place] [address] Care Team Providers Care Customs Compliance Analyst Name Role Phone Subha Colon TUNNEL FORM PLACING SUPERVISOR Primary Care Provider [phone] Reason for Referral * Diagnostic Test (Routine) - Closed Specialty Diagnoses / Procedures Referred By Contac t Referred To Contact Radiology Diagnoses Growth hormone deficiency Fracture Procedures DXA Central Spine, Hip, and/or Whole Body (Generic) Wilder Zaidi DO [address] [place] [address] [facility] Xray [address] [facility] [place] [address] Referral ID Status Reason Start Date Expiration Date V isits Requested Visits Authorized [id number] Closed Specialty Service Requested 05/26/2019 05/25/2020 1 1 Reason for Visit * Diagnostic Test (Routine) - Closed Specialty Diagnoses / Procedures Referred By Contac t Referred To Contact Radiology Diagnoses Growth hormone deficiency Fracture Procedures DXA Central Spine, Hip, and/or Whole Body (Generic) Wilder Zaidi DO [address] [place] [address] [facility] Rad Xray [address] [place] [address] Referral ID Status Reason Start Date Expiration Date V isits Requested Visits Authorized [id number] Closed Specialty Service Requested 05/26/2019 05/25/2020 1 1 Encounter Details Date Type Department Care Team (Latest Contact Info) Description 06/21/2019 10:30 AM EST - 06/21/2019 11:59 PM [facility] Hospital Encounter XRay at [address] [address] Wilder Zaidi, DO [address] [place] [address] Growth hormone deficiency; Fracture Discharge Disposition: [...] BMD measurements and plots are available in ETIMPIK under the imaging tab. Paper copies will be sent to providers without [employer] access. If you have received this report without the data sheet and do not have access to [employer], please contact Radiology Certified Detention Deputy at [phone] Friday thru Friday 8am-4pm. ?? Thank you for letting us participate in the care of this patient. For questions regarding this report, please contact the number below. ? Electronically signed by: MATEO Smith [facility] ([phone]), at 06/24/2019 7:15 PM Narrative 06/24/2019 7:15 PM EST EXAMINATION: DXA CENTRAL SPINE, HIP, AND/OR WHOLE BODY (GENERIC) CLINICAL HISTORY: shelter steroid use, low testosterone, history of fracture, per ordering provider TECHNIQUE: Scans were acquired at the lumbar spine, and right hip. Patient has hardware and left hip COMPARISON: none FINDINGS: Lowest Z-score at a diagnostic region of interest: Z-score: -2.3, ALLISON: Lumbar spine Procedure Note Park Dalal MD - 06/24/2019 EXAMINATION: DXA CENTRAL SPINE, HIP, AND/OR WHOLE BODY (GENERIC) CLINICAL HISTORY: shelter steroid use, low testosterone, history offracture, per [...] BMD measurements and plots are available in EXOXO Kitchenunder the imaging tab. Paper copies will be sent to providers without [employer] access.If you have received this report without the data sheet and do not haveaccess to E-, please contact Radiology Certified Detention Deputy at [phone] Friday thrrid 8am-4pm. Thank you for letting us participate in the care of this patient. Forquestions regarding this report, please contact the number below. Wilder Zaidi DO IMG DEXA ORDERABLES documented in this encounter Visit Diagnoses Diagnosis Growth hormone deficiency Pituitary dwarfism Fracture Closed fracture of unspecified bone documented in this encounter Care Teams Customs Compliance Analyst Relationship Specialty Start Date End Date Subha Colon APRN [address] [place] [address] PCP - General Family Medicine 04/30/19 06/01/20 documented as of this encounter
--- OUTSIDE RECORDS SUMMARY | 2024-07-30 03:09 | XMS_ITS | Encounter Summary ---
Author Organization [facility] [place] [address] Care Team Providers Care Records Administrator Name Role Phone Chadjonathan Lc YEE Primary Care Provider [phone] Encounter Details Date Type Department Care Team (Late st Contact Info) Description 03/22/2019 [place] [phone] Heidi Yi MD Social History Tobacco Use [...] 03/22/2019 10:05 AM EDT Patient seen at [facility] for lethargy, workup negative so far including [...] attending Dr. Morris. Heidi Yi MD PGY-4 [facility] Endocrinology Fellow Pager #[phone] documented in this encounter Plan of Treatment Not on file documented as of this encounter Visit Diagnoses Not on filedocumented in this encounter Care Teams Records Administrator Relationship Specialty Start Date End Date Lc Venegas PA [address] [place] [address] PCP - General General Internal Medicine 09/03/17 documented as of this encounter
--- OUTSIDE RECORDS SUMMARY | 2024-07-30 03:09 | XMS_ITS | Encounter Summary ---
Author Organization [facility] [place] [address] Care Team Providers Care Assistant Infant Teacher Name Role Phone Ren Vaz MD Primary Care Provider [phone] Reason for Visit * Consultation (Routine) - Closed Specialty Diagnoses / Procedures Referred By Duyen bui Referred To Contact Maxillofacial Surgery Diagnoses Extraction of tooth needed Marques Hu, DMD [address] [place] [address] Joyce Kelly PA [facility] [address] [place] [address] Referral ID Status Reason Start Date Expiration Date V isits Requested Visits Authorized [id number] Closed Consult, Test & Treat 08/17/2021 08/17/2022 1 1 Encounter Details Date Type Department Care Team (Late st Contact Info) Description 11/01/2021 11:00 AM EDT Office Visit [place] [address] Joyce Kelly PA Dental caries Social History [...] Referral to Maxillofacial Surgery To: JOYCE KELLY [phone] Specialty: My question or request is: evaluate patient for hospitalized dental care for special needs adult ext [phone] ? Referral Information Reference# [id number] Referral type: Consultation # Visits requested: 1 [...] notations from today's history: ?? Presents with gericare aide teacher, [place], today ?? The patient's guardian is his sister, Bettina, he reportedly resides at [facility] ?? Per chart review has history [...] of the anterior maxillary teeth. Per the manager rn case this was mainly in the setting of concern that the teeth may be fragile and will require extraction in the future. They would appreciate a second opinion as tothe anterior maxillary teeth ??? It is somewhat unclear as to the dentist's recommendations in regards to these teeth ??? Reportedly they are able to perform [facility] at the [facility] with the patient on a daily basis [...] caries of #7,9,10,11 in patient residing in [facility] setting with complex medical history as described above Recommendations/plan: Clinical scenario was discussed with Dr. Luke. Discussed with the patient and laboratory animal caretaker thatultimately our recommendations would typically be to defer to the dentist's evaluation and recommended treatment plan, and that we are not able to offer restorative measures in our practice nor distinguish whether this would be the most appropriate course. We were able to contact her dentist's office and it does seem they had proposed hinduism of teeth #7,9,10,11,31. As above would ultimately [...] plan. Additional questions were addressed and the laboratory animal caretaker appeared satisfied with the above discussion. We appreciate the opportunity to be involved in Mr. Burgos's care. NAKIA Mims-C - Oral-Maxillofacial Surgery 11/02/2021 10:01 AM This note may have incorporated [id number] technology and though reviewed typographical or syntax errors may remain. documented in this encounter Plan of Treatment Not on file documented as of this encounter Visit Diagnoses Diagnosis Dental caries Unspecified dental caries documented in this encounter Care Teams Assistant Infant Teacher Relationship Specialty Start Date End Date Ren Vaz MD PCP - General Family Medicine 06/02/20 06/17/24 documented as of this encounter
--- OUTSIDE RECORDS SUMMARY | 2024-07-30 03:09 | XMS_ITS | Encounter Summary ---
Author Organization [facility] Address [facility] [place] [address] Care Team Providers Care Hair Mixer Name Role Phone Chadjonathan Lc YEE Primary Care Provider [phone] Encounter Details Date Type Department Care Team (Late st Contact Info) Description 03/21/2019 2:40 PM EDT Ancillary Procedure Radiology Library [place] [facility] [place] [address] Pedro Colon MD [facility] [place] [address] Social History Tobacco Use Types Packs/Day Years [...] Head (03/21/2019 2:37 PM EDT) Narrative [facility] - 03/21/2019 2:37 PM EDT This exam is auto-finalizing. It's purpose is for storage only. Pedro Colon MD IMG FILM LIBRARY O RDERABLES [place], [place] documented in this encounter Visit Diagnoses Not on filedocumented in this encounter Care Teams Hair Mixer Relationship Specialty Start Date End Date Lc Venegas PA [address] [place] [address] PCP - General General Internal Medicine 09/03/17 documented as of this encounter
--- OUTSIDE RECORDS SUMMARY | 2024-07-30 03:09 | XMS_ITS | Encounter Summary ---
Author Organization [facility] Address [facility] [place] [address] Care Team Providers Care Collarette Separator Name Role Phone ChadjonathanLc Primary Care Provider [phone] Encounter Details Date Type Department Care Team (Late st Contact Info) Description 09/09/2018 Tele[place] [address] Mariola Thomson MD [facility] [place] [address] Social History Tobacco Use Types Packs/Day Years [...] to admit pt. Mariola Thomson MD PGY-4 [facility] Endocrinology Fellow Pager #[phone] documented in this encounter Plan of Treatment Not on file documented as of this encounter Visit Diagnoses Not on filedocumented in this encounter Care Teams Collarette Separator Relationship Specialty Start Date End Date Lc Venegas PA [address] [place] [address] PCP - General General Internal Medicine 09/03/17 documented as of this encounter
--- OUTSIDE RECORDS SUMMARY | 2024-07-30 03:09 | XMS_ITS | Encounter Summary ---
Author Organization [facility] [place] [address] Care Team Providers Care Farm Tractor Operator Name Role Phone Ren Vaz MD Primary Care Provider [phone] Encounter Details Date Type Department Care Team (Late st Contact Info) Description 06/13/2024 Ancillary Procedure Radiology Library at [facility] [place] [id number] Ren Vaz MD [address] [place] [address] [address] [place], [place] [id number] Social History Tobacco Use Types Packs/Day Years Used Date Smoking Tobacco: Never Smokeless Tobacco: Never Alcohol Use Standard Drinks/Week Comments No 0 (1 standard drink = 0.6 oz pur e alcohol) [facility] Inpatient Questions Answer Date Recorded Prevent [...] is for storage only. Ren Vaz MD IM FILM LIBRARY ORD ERABLES JO [place], [place] documented in this encounter Visit Diagnoses Not on filedocumented in this encounter Care Teams Farm Tractor Operator Relationship Specialty Start Date End Date Ren Vaz MD PCP - General Family Medicine 06/02/20 06/17/24 documented as of this encounter
--- OUTSIDE RECORDS SUMMARY | 2024-07-30 03:09 | XMS_ITS | Encounter Summary ---
[place] [address] Care Team Providers Care Optical Goods Drilling Machine Operator Name Role Phone Lc Venegas Primary Care Provider [phone] Encounter Details Date Type Department Care Team (Late st Contact Info) Description 09/11/2018 Telephone [place] [phone] Thuy Chu RN Social History Tobacco Use [...] EST Msg from Jessika Woodall NP at [facility], left msg that pt is doing well, possible aspiration pneumonia. Would like call back on how to proceed with steroid dosing and taper. [phone] and have hospitalist paged. documented in this encounter Plan of Treatment Not on file documented as of this encounter Visit Diagnoses Not on filedocumented in this encounter Care Teams Optical Goods Drilling Machine Operator Relationship Specialty Start Date End Date Lc Venegas PA [address] [place] [address] PCP - General General Internal Medicine 09/03/17 documented as of this encounter
--- OUTSIDE RECORDS SUMMARY | 2024-07-30 03:09 | XMS_ITS | Encounter Summary ---
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 * Consultation (Routine) - Specialty Diagnoses / Procedures Referred By Duyen bui Referred To Contact Endocrinology Diagnoses panhypopituitarism Lc Venegas PA [address] [place] [address] [facility] Endocrinology [address] [place] [address] Referral ID Status Reason Start Date Expiration Date V isits Requested Visits Authorized [id number] Consult, Test & Treat [facility] 04/14/2018 04/14/2019 6 6 Encounter Details Date Type Department Care Team (Latest Contact Info) Description 07/15/2018 11:00 AM EST Office Visit [place] [address] Christopher Hess MD [facility] [place] [address] Mariola Thomson MD [facility] [place] [address] Hypopituitarism (Primary Dx) Social History [...] seizure disorder. Miguel Angel was admitted to [facility] from 09/02/2017 until 03/12/2018 due to a [...] energy for him. Social Hx: Lives in [facility] [phone] Lala Posada Sister is DOPA Meds: Current [...] Rfl: 0 ??? 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 Objective:BP 116/79 (BP Location (NBP): Left [...] his fluid restriction. I have asked his hot strip mill inspector Lala luu me know if his [...] locally Case discussed and seen with staff Rn Chemical Dependency, Christopher Hess MD. Of note, pt previously followed with Wilder Dejuan at [facility]- will route this note to him as pt's care providers wish him to follow here since it is closer for them in his new home. Route to NAKIA Cifuentes and Dejuan. F/u in 1 year or sooner for any changes whatsoever. Will f/u [facility] over the telephone as it is hard for them to get here. Mariola Thomson MD PGY-4 [facility] Endocrinology Fellow Pager #[phone] * Christopher Hess MD - 07/15/2018 11:00 [...] Free T4 1.24 0.93 - 1.70 ng/dL [facility] Blood specimen (specimen) 07/15/2018 12:49 PM EST 07/15/2018 12:55 PM EST Narrative Resulting Agency Comment Spec In Lab Christopher Hess MD CHEMISTRY ORDERABLES [facility] [place] [address] * (ABNORMAL) Basic Metabolic Panel (non-fasting) (07/15/2018 12:49 PM EST) Glucose 105 65 - 199 mg/dL [facility] [...] [facility] Carbon Dioxide 19(L) 22 - 31 mmol/L [facility] Anion Gap 15 5 - 15 mmol/L [facility] Calcium 9.2 8.5 - 10.5 mg/dL [facility] Est Glomerular Filtration Rate 120 >=60 mL/min/1. 73 m?? [facility] Comment: The eGFR was calculated using the CKD-EPI equation. As with all creatinine based estimates of kidney function, eGFR values calculated with the CKD-EPI equation are not accurate in patients with acute kidney failure, extremes of body mass or the acutely ill. http://[employer]/DHnkf eGFR 139 >=60 mL/min/1. 73 m?? [facility] Comment: The eGFR was calculated using the CKD-EPI equation. As with all creatinine based estimates of kidney function, eGFR values calculated with the CKD-EPI equation are not accurate in patients with acute kidney failure, extremes of body mass or the acutely ill. http://[employer]/[facility] Blood specimen (specimen) 07/15/2018 12:49 PM EST 07/15/2018 12:55 PM EST Narrative Resulting Agency Comment Spec In Lab Christopher Hess MD CHEMISTRY ORDERABLES Performing Organization Address [facility]/ZIP Co de Phone Number [facility] [place] [address] * Vitamin D, 25-Hydroxy (07/15/2018 12:49 PM EST) Vitamin D Total 25 OH 32 30 - 100 ng/mL [facility] [...] be considered to be insufficient or deficient. [email or web address]-guidelines http://[employer]/nejm-VitD The [employer] Vitamin D Immunoassay detects both 25-OH Vitamin D2 and 25-OH Vitamin D3, but only a total Vitamin D concentration is reported. Blood specimen (specimen) 07/15/2018 12:49 PM EST 07/16/2018 7:49 AM EST Narrative Resulting Agency Comment Spec In Lab Christopher Hess MD CHEMISTRY ORDERABLES Performing Organization Address [facility]/ZIP Co de Phone Number [facility] [place] [address] documented in this encounter Visit Diagnoses Diagnosis Hypopituitarism- Primary Panhypopituitarism documented in this encounter Care Teams Leak Operator Paraffin Plant Relationship Specialty Start Date End Date Lc Venegas PA [address] [place] [address] PCP - General General Internal Medicine 09/03/17 documented as of this encounter
--- OUTSIDE RECORDS SUMMARY | 2024-07-30 03:13 | XMS_ITS | Encounter Summary ---
[place] [address] Care Team Providers Care Home Management Supervisor Name Role Phone Lc Venegas Primary Care Provider [phone] Reason for Visit * Reason Comments Hospital Transfer hip fracture from [facility] * Auth/Cert Specialty Diagnoses / Procedures Referred By Duyen bui Referred To Contact Diagnoses Acetabular fracture Left acetabulum fracture Procedures @OPEN TREATMENT, ACETABULAR FX (WRVU 25.41) Referral ID Status Reason Start Date Expiration Date Visits Re quested Visits Authorized [id number] 1 1 Encounter Details Date Type Department Care Team (Late st Contact Info) Description 10/20/2017 9:00 AM EDT - 10/20/2017 9:30 [place] [address] RESOURCE, ANESTHESIA-GEORGIE None CT Social History Tobacco [...] level in 3 days after discharge from [facility], if out of range, [facility] endocrinology for further instructions regarding desmopressin dosing [...] MD): This is a 27 y.o. male detention resident with a history of panhypopituitarism, DI, [...] over the phone, so she had his hook up driver take him to the hospital. At [place], when asked about pain he would point to his left knee. Ultimately, CT was performed which showed acute leftacetabular fracture and osteopenia. He received several doses of morphine, dilaudid, and ativan forpain and sedation prior to transfer. ?? He has not had a seizure for about 4 years. No recent med changes according to Bettina. Labs at [place] remarkable for Na 132. In the ER [...] by orthopedics. Due to restrictions in his detention environment, he could not return home to [...] ED to Hosp-Admission (Current) from 09/02/[address] [place] [address] Weight 98.4 kg (216 lb 14.4 oz) [...] to navigate stairs Questions: Vendor Name/Contact information: [facility] Bed (Outpatient) [EQ172 Custom] As [...] please contact your inpatient physician through the [facility] Police Service Technician . Issues afterhours and on weekends will [...] Pt is being brought by ambulance to [facility]. Pt did not have IV access. Pt AVS, discharge summary, and medication were sent to facility. Called facility to give report. * Lauren Gloria - 03/12/2018 1:25 PM EDT Patient was transported today [facility] at 1330 to [facility]. * Tricia Gerber RN - 03/12/2018 1:25 PM EDT Patient being discharged to [facility] today via ambulance. Spoke with sister Bettina- she was in agreement with plan. [facility] will be delivering all needed DME tomorrow morning apx. 9am. Wall Attendant has reviewed DME list with Asael at [facility] to determine what DME must be had today to ensure a safe transfer. It was determined the only have to item for today is the wheelchair. [facility] Assistant In Nursing has given approval for [facility] to provide one of ours until the one from [facility] arrives (Asael to coordinate return with copy writer). Bhakti Riojas from [facility] has picked up all meds and depends from pharmacy. Nursing staff has provided Bhakti with the testosterone gel, bed guillen and urinal. She also has hard copies of discharge summary and AVS. No other discharge needs have been identified. Tricia Gerber RN Case Aircraft Communicator of Care Management [email or web address] Pager: [phone] * Tricia Gerber RN - 03/12/2018 1:25 PM EDT Received call from Bhakti Lavfeng at [facility] . Bhakti requests referral to: [facility]. PHONE: [phone] FAX: [phone] Patient lives at: [address] [place] [address] [address] [facility] [address] Phone [phone] Fax [phone] Expected date of discharge: 03-12-18. Referral routed to the Shipping Receiving Clerk for matching with agency/vendor and to provide any required information. Tricia Gerber RN Case Aircraft Communicator of Care Management [email or web address] Pager: [phone] * Dario Gallegos MD - 03/12/2018 11:00 [...] spent >30 minutes (Day of Discharge Code 89007) involved in the final examination of the patient, discussion of the hospital stay, instructions for continuing care to all relevant caregivers, and preparation of discharge records, prescriptions and referral forms. Plans ? Discharge to [facility] ? Follow-up scheduled with pscychiatry ? Please see the Discharge Summary for complete details of any medication changes and additional plans. * Tricia Gerber RN - 03/12/2018 8:49 AM EDT Received voicemail from Bettina Sweettomy (Guardian/sister). States she is aware that Miguel Angel will be transferred to [facility] Address [address] [place] [address] [address] [facility] [address] Tricia Gerber RN Case Aircraft Communicator of Care Management [email or web address] Pager: [phone] * Tricia Gerber RN - 03/11/2018 4:46 PM EDT Plan for discharge tomorrow 03-12-18: - Scripts have been ordered, filled, and ready for pickle processor at [facility] Outpatient Pharmacy (except those noted below) o Depends were ordered but not covered by insurance, they are available at [facility] pharmacy for purchase o Testosterone cream requires a prior authorization, we have submitted for prior authorization. We will send him with tube that is currently being utilized in the hospital. - Urinal and bed guillen will be sent with R.B. upon discharge (if Bhakti wants to get these items from nurses station when she comes to pickle processor medications that is also an option) - Wheelchair, commode and hospital bed have been ordered through [facility]. Their [place] office will be delivering these items and have been given [facility] contact information for coordination of the delivery. - Ambulance has been confirmed for pick-up at 1:30pm - Discharge Summary o Hard copy will be sent with patient in envelope o Fax copy will also be sent to [phone] Called patients sister Bettina [phone] (work#1) she was gone for the day [phone] (cell) left voice mail [phone] (work#2) she was not scheduled today Tricia Gerber tower excavator operator Office of Care Management [email or web address] Pager: [phone] * Echo Hanson RN - 03/11/2018 3:57 PM EDT Continuing to support complex d/c planning on behalf of care management. Received call back from [facility] BATTERY MECHANIC Kris Back, discussed with him the importance [...] advocated to transfer DS services to another [facility] where client's needs could have been met sooner. Also relayed concern about communication delays from [facility]. Recvd calls from [place] [phone] confirming patient's plan for d/c to [facility] tomorrow via ambulance, and that [facility] staff are visiting patient today to retrieve DME and medications to prepare patient for tomorrow. Recvd call from Rob immigration attorney at [place] [employer] to check patient status. Returned his call [phone] with update as above. Confirmed with primary RN LUCAS Clarke that DME, medications are ordered and in process of retrieval with [facility], and that ambulance will be arranged for early afternoon 03/12. Continue to be available for complex discharge planning needs on behalf of care mangement. Echo Hanson, RN, MSN, ACM Pipe Line Maintenance Supervisor - Care Management [phone] / [phone] pager [phone] [email or web address] * Dario Gallegos MD - 03/11/2018 12:14 [...] Awaiting placement Primary Care Provider: NAKIA Cifuentes [phone] Inpatient Certification Attestation: IPI Certification I certify [...] IPI criteria and is awaiting rehabilitation or long term facility placement withactive referrals in process DARIO GALLEGOS MD Team Pager(MD Coverage 27/01): #[phone] 03/11/2018 * Dario Gallegos MD - 03/10/2018 [...] Awaiting placement Primary Care Provider: NAKIA Cifuentes [phone] Inpatient Certification Attestation: IPI Certification I certify [...] IPI criteria and is awaiting rehabilitation or long term facility placement withactive referrals in process DARIO GALLEGOS MD Team Pager(MD Coverage 27/01): #[phone] 03/10/2018 * Mavis Solo MSW - 03/10/2018 3:27 PM EDT [place]OOK CAMP received a return call from Asael Valdez at [facility]. Per Asael, after his evaluation [...] bed, and Asael informs Lillian ([facility] worker) who then coordinates the transfer. Asael confirmed that he has left a voice message for Lillian informing her that Miguel Angel is appropriate for their [place] bed, and that the bed is available. He is awaiting a response from Lillian. JAMSHID Enamorado Pager: [phone] * Mavis Solo MSW - 03/10/2018 2:02 PM EDT [place] left a voice message for Asael Courtney (cell: [phone]) at [facility] ([facility]) to check on bed availability. Awaiting a return call. JAMSHID Enamorado Pager: [phone] * Jazzmine Charlton RD - 03/10/2018 1:19 PM EDT Nutrition Progress Note Miguel Angel Mason is a 27 y.o. male Reason for intervention: Follow up Nutrition Recommendations: Recommend continuation of current diet order Consider daily multivitamin w/ minerals, Vit D and Calcium given group home steroid use Sitters please assist patient with [...] Orders Diet Daily Healthy Menu Choices/Cardiac diet ([facility]-Diet) 2000 mL FLUID Frequency: Effective Now Number of Occurrences: Until Specified Admit Weight: 86.64 kg Estimated body mass index is 31.12 kg/(m^2) as calculated from the following: Height as of this encounter: 177.8 cm (5' 10). Weight as of this encounter: 98.4 kg (216 lb 14.4 oz). [place] body weight: 73 kg (160 lb 15 [...] content of every food available. Discussed with POWER PLANT ENGINEER attempting to encourage patient to eat lean proteins, low-fat dairy, complex carbohydrates, and avoid concentrated sweets and high-fat foods. Worked with POWER PLANT ENGINEER to complete patient's breakfast lunch and dinner menus for tomorrow. Sitter reports that patient eats everything that he is and is not very picky. No further nutrition related questions or concerns at this time. ?? MARIYA Kat * Dina Ca - 03/09/2018 2:15 PM EDT [facility] Encounter Note Patient Name: Miguel Angel Mason : [id number] MR#: [id number] Admit Date: 09/02/2017 9:23 PM Hospital Day 188 days Narrative: Cable Former visited pt on routine rounds. Assessment: Pt was asleep in his bed, sitter was seated near the bedside. Intervention and Outcome: As pt was asleep, traction power engineer checked in with sitter on how he was doing. 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 Follow-up: Yes, on routine rounds Time in Direct Care: 5 mins Dina Ca 03/09/2018 * Gabriella Maher MD - 03/09/2018 8:21 AM EDT [facility] Medicine Attending Inpatient Daily Progress Note [...] Awaiting placement Primary Care Provider: NAKIA Cifuentes [phone] Inpatient Certification Attestation: IPI Certification I certify [...] IPI criteria and is awaiting rehabilitation or long term facility placement withactive referrals in process Gabriella Maher MD Team Pager(MD Coverage 27/01): #[phone] 03/09/2018 * Gabriella Maher MD - 03/08/2018 8:01 AM EDT [facility] Medicine Attending Inpatient Daily Progress Note [...] dose (~7.5 mg prednisone equivalent) - recheck WASTE PAPER HAMMERMILL OPERATOR today # SIRS, resolved - Workup unremarkable [...] Awaiting placement Primary Care Provider: NAKIA Cifuentes [phone] Inpatient Certification Attestation: IPI Certification I certify [...] IPI criteria and is awaiting rehabilitation or long term facility placement withactive referrals in process Gabriella Maher MD Team Pager(MD Coverage 27/01): #[phone] 03/08/2018 * Gabriella Maher MD - 03/07/2018 4:10 PM EDT [facility] Medicine Attending Inpatient Daily Progress Note [...] dose (~7.5 mg prednisone equivalent) - recheck WASTE PAPER HAMMERMILL OPERATOR today # SIRS, resolved - Workup unremarkable [...] Awaiting placement Primary Care Provider: NAKIA Cifuentes [phone] Inpatient Certification Attestation: IPI Certification I certify that I am a D-H credentialed attending provider with admitting privileges and that the patient meets or has met medical necessity to require an inpatient IPI level of care meeting a minimumof two midnights or is on the [facility] inpatient only procedure list (status C) due to: the patient has met Inpatient IPI criteria and is awaiting rehabilitation or long term facility placement withactive referrals in process Gabriella Maher MD Team Pager(MD Coverage 27/01): #[phone] 03/07/2018 * Echo Hanson RN - 03/06/2018 5:18 PM EDT Continuing to support complex discharge planning on behalf of care management. For additional care management dept discharge planning efforts, see notes. Recvd information that patient may have [facility] (vs [facility]) placement setup (equipped home and care team) and that patient's DS budget is under review by [facility] leadership. Called [facility] and left , received call back from Carissa Posada who confirmed that a plan has been proposed, including a lease agr eement and budget and it is awaiting leadership approval. She agrees to have [facility] leadership return call to share further details about lack of signoff. Call placed to [place] [employer], gave update re: above to immigration attorneyaustin Rivas who is following hissituation. He plans to call pt's guardian (sister Bettina) to obtain approval to continue to work ontheir behalf, will call with updates. Call placed to [place] [facility] Director for Disability Services Georgia Jones to update with above information. She, too, will continue to advocate for [facility] to signoff on patient's budgetand clear the path to his custodial placement. HEATHER Clarke updated. Will continue to follow and advocate on patient's behalf. Will return 03/10. Echo Hnason RN, MSN, ACM Pipe Line Maintenance Supervisor - Care Management [phone] / [phone] pager [phone] * Tricia Gerber RN - 03/06/2018 4:56 PM EDT The patient/medical sales representative has been provided a list of Home Health Agencies/DME vendors which servetheir preferred geographic area. A letter describing our affiliations was reviewed with them and they were educated about their right to choose where referrals are placed. Patient requests referral to [facility] for wheelchair and walker. Expected date of discharge: 03-10-18. Referral routed to the Shipping Receiving Clerk for matching with agency/vendor and to provide any required information. Tricia Gerber RN Case Aircraft Communicator of Care Management [email or web address] Pager: [phone] * Tricia Gerber RN - 03/06/2018 4:27 PM EDT Lillian Holcomb from [facility] Human Services and another medical sales representative came to visit with Miguel Angel today and meet with [facility]. [facility] medical sales representative Asael Valdez [phone] visited with patient, [facility] staff, and [facility] staff today. Charge nurse reviewed Miguel Angel's case/needs. [facility] to be in contact with [facility] on Saturday 03/10 regarding their tentative plan to accept. He was given pager number for attending should their psychiatrist have any questions regarding medications. We determined that patient will need wheelchair and walker for discharge. Wall Attendant will place order with [facility] for these items. Miguel Angel may also need hospital bed or rails added to bed at [facility]. Lashell discuss further with management at [facility] as bed rails may be considered a restraint and not allowed by the [facility]. Lillian reports that she did speak with Bettina Mason (Guardian/sister), she is in agreement with plan and would like to be present at time of transfer. Case management will continue to follow and assist with discharge planning needs. Tricia Gerber RN Case Aircraft Communicator of Care Management [email or web address] Pager: [phone] * Reba Linton MD - 03/06/2018 1:59 PM EDT Hospital Medicine Attending Daily Progress [...] molar - Non-urgent extraction as outpatient Diet [facility] Healthy Diet Discharge planning Awaiting placement, medically ready for discharge. CM working hard to secure placement Lines/Access None Morse catheter None DVT Prophylaxis None, patient is ambulatory Code status FULL Team Pager [phone] PCP NAKIA Cifuentes Attestation IPI Certification I [...] IPI criteria and is awaiting rehabilitation or long term facility placement withactive referrals in process REBA LINTON MD * Tricia Gerber RN - 03/05/2018 5:36 PM EDT Called and spoke with Bettina Mason (Guardian/sister) [phone] (W). Reviewed details of meeting held today and plan for evaluation by [facility]. She reports that she would [...] from whom she believes was Lillian from [employer]. States Lillian left hercell phone number and she wanted to call and talk to Lillian to learn more about [facility]. Miguel Angel gettingout is great news, but also very nerve wrecking. She agreed to call copy writer back after talking with Lillian. Case management will continue to follow. Tricia Gerber RN Case Aircraft Communicator of Care Management [email or web address] Pager: [phone] * Mavis Solo, [place] - 03/05/2018 2:55 PM EDT Care Conference call held with Hilton Barker- rubber goods tester, Tricia- Small Animal Veterinarian, Echo Canas Regional Manager, Dr. Goldstein, this worker, and multiple staff at [facility], and Naheed Estrella from [facility] to discuss Miguel Angel's medical status, behavioral tendencies, and needs for [facility] placement. All questions from participating parties appeared to have been answered. Per Asael Ferrer from [facility] will be coming to to [...] and assist as appropriate. JAMSHID Enamorado Pager: [phone] * Reba Linton MD - 03/05/2018 8:53 AM EDT Hospital Medicine Attending Daily Progress [...] Intake/Output Summary (Last 24 hours) at 03/05/18 0818 Last data filed at 03/05/18 0630 Gross [...] molar - Non-urgent extraction as outpatient Diet [facility] Healthy Diet Discharge planning Awaiting placement, medically ready for discharge. CM working hard to secure placement Lines/Access None Morse catheter None DVT Prophylaxis None, patient is ambulatory Code status FULL Team Pager [phone] PCP NAKIA Cifuentes Attestation IPI Certification I certify that I am a D-H credentialed attending provider with admitting privileges and that the patient meets or has met medical necessity to require an inpatient IPI level of care meeting a minimumof two midnights or is on the [facility] inpatient only procedure list (status C) due to: the patient has met Inpatient IPI criteria and is awaiting rehabilitation or long term facility placement withactive referrals in process MAHATHI S KOMARAGIRI, MD * Shruti Lozoya, RN - 03/05/2018 2:05 AM EDT 03/03/18-03/04/18 [id number] Patient not wearing continuous masimo due to [...] to be medically ready and appropriate for detention/shared living provider. See recent nursing and provider notes for care needs. Communication ongoing with [facility] who is planning to arrange discharge situation for patient in [facility] with staff. [facility], as the [facility] Dev Services crisis bed facilitation organization, isconsidering admitting patient to crisis bed shortterm with plan to transfer to [facility] setup. Recvd communication from [facility] they are now planning to do onsite visit to assess appropriateness ofcrisis bed placement vs gathering information about patient's needs and plan for discharge this week. [facility] will likely not be able to support transfer this week. Given patient's overall situation, crisis placement may not be therapeutic for patient as it can have frequent admits/discharges and disruptions for client, and he would endure another transition once a permanent placement is secured. Due to protracted planning with both [facility] and [place], call placed to [place] [facility] ([facility] organization for the Designated MH Agencies) Director of MH services (Prosper Carter) and Director of Dev Services (Georgia Jones) to review scenario with PHI redacted. [place] will be contacting Carissa Posada with [facility] to encourage increased communication of barriers to discharge. Both agreed with advocacy to [place] [employer] as well as informing patient's guardian that she does have the right to seek DS services in another [facility]. Call placed to [place] [employer] to public health social worker Erlinda [phone] who has passed Guido's case along for review with their immigration attorney. The main concern is protracted non-acute stay for individual with intellectual disabilities. Shared guardian contact information. Call placed to guardian Bettina STAFFORD left at her cell phone # to return call. Plan to update her andensure she is aware of [place] [employer] as a resource as well as her option to seek DS servicesoutside the [facility]. PLAN: - conference call scheduled for 03/05 at 2pm with [facility] and staff - appreciate coordination by PRANEETH pop/ollie to shared living provider or crisis bed if approved by [facility] and/or [facility] - onsite visit by [facility] is the first step and they have not yet agreed to a date/time - continue to advocate for services and support as above Echo Hanson RN, MSN, ACM Pipe Line Maintenance Supervisor - Care Management [phone] / [phone] pager [phone] [email or web address] * Shruti Lozoya RN - 03/04/2018 4:01 AM EDT 03/03/18-03/04/18 [id number] Patient does not have continuous masimo monitor [...] molar - Non-urgent extraction as outpatient Diet [facility] Healthy Diet Discharge planning Awaiting placement, medically [...] minimumof two midnights or is on the [facility] inpatient only procedure list (status C) due to: the patient has met Inpatient IPI criteria and is awaiting rehabilitation or long term facility placement withactive referrals in process REBA LINTON MD * Echo Hanson RN - 03/03/2018 3:32 PM EDT Continuing to support discharge planning for patient on behalf of care management. Patient medically ready since early October awaiting d/c plan arrangements from [facility]. Patient unableto return to detention setting due to inability to navigate stairs. ZOYA continues to secure custodial housing and a care team for him in a new residence. Email communication today with Carissa Posada, Chief Intellectual/Developmental Disabilities Services [facility] Human Services who is assisting with coordination [...] anticipation of transition to crisis bed in [facility] with ZOYA support 2- 03/05 afternoon phone care conference with ZOYA and team (Mavis Solo, JAMSHID coordinating) to discuss daily care needs, meds and discharge transportation 3- discharge to crisis bed in [facility] in care of ZOYA as patient comes from detention Anticipate discharge soon - unable to confirm date, likely during the week of 03/10. Care Management to continue to follow for d/c needs. Echo Hanson RN, MSN, ACM Pipe Line Maintenance Supervisor - Care Management [phone] / [phone] pager [phone] [email or web address] * Felecia Moran RN - 03/03/2018 [...] Reason for intervention: Consult Nutrition Recommendations: Recommend [facility] heart healthy diet order to restrict fat [...] Orders Diet Daily Healthy Menu Choices/Cardiac diet ([facility]-Diet) Frequency: Effective Now Number of Occurrences: Until Specified Admit Weight: 86.64 kg Estimated body mass index is 31.39 kg/(m^2) as calculated from the following: Height as of this encounter: 177.8 cm (5' 10). Weight as of this encounter: 99.2 kg (218 lb 12.8 oz). [place] Body Weight (IBW): [place] body weight: 73 kg (160 lb 15 [...] Linton MD - 03/02/2018 1:12 PM EDT [facility] Attending Daily Progress Note Patient [...] molar - Non-urgent extraction as outpatient Diet [facility] Healthy Diet Discharge planning Awaiting placement, medically ready for discharge. CM working hard to secure placement Lines/Access None Morse catheter None DVT Prophylaxis None, patient is ambulatory Code status FULL Team Pager [phone] PCP NAKIA Cifuentes Attestation IPI Certification I certify that I am a D-H credentialed attending provider with admitting privileges and that the patient meets or has met medical necessity to require an inpatient IPI level of care meeting a minimumof two midnights or is on the [facility] inpatient only procedure list (status C) due to: the patient has met Inpatient IPI criteria and is awaiting rehabilitation or long term facility placement withactive referrals in process REBA LINTON MD * Reba Linton MD - 03/01/2018 2:31 PM EDT [facility] Attending Daily Progress Note Patient [...] at the edge of bed reading chaz flynn with POWER PLANT ENGINEER HEENT: Moist mucous membranes Neck: No jugular [...] is ambulatory Code status FULL Team Pager [phone] PCP NAKIA Cifuentes Attestation IPI Certification I certify that I am a D-H credentialed attending provider with admitting privileges and that the patient meets or has met medical necessity to require an inpatient IPI level of care meeting a minimumof two midnights or is on the [facility] inpatient only procedure list (status C) due to: the patient has met Inpatient IPI criteria and is awaiting rehabilitation or long term facility placement withactive referrals in process REBA LINTON MD * Reba Linton MD - 02/28/2018 3:44 PM EDT [facility] Attending Daily Progress Note Patient [...] is ambulatory Code status FULL Team Pager [phone] PCP NAKIA Cifuentes Attestation IPI Certification I [...] IPI criteria and is awaiting rehabilitation or long term facility placement withactive referrals in process REBA LINTON MD * Tricia Gerber RN - 02/27/2018 11:04 AM EDT Received call back from Noel Estrella- [phone] PASSR reviewer. She reports that PASSR is not needed unless patient is placed in a care home, which is not an appropriate setting for him. States she has been following case closely with YULISA Quevedo, and all parties involved would like him placed as soon as possible. Reports that they are looking at possible transfer to crisis center when there is a bed opening. Tricia Gerber RN Case Aircraft Communicator of Care Management [email or web address] Pager: [phone] * Abimbola Goldstein MD - 02/27/2018 8:20 [...] Facesheet ABIMBOLA GOLDSTEIN MD Hospital Medicine Pager [phone] IPI Certification I certify that I am a D-H credentialed attending provider with admitting privileges and that the patient meets or has met medical necessity to require an inpatient IPI level of care meeting a minimumof two midnights or is on the CMS inpatient only procedure list (status C) due to: the patient has met Inpatient IPI criteria and is awaiting rehabilitation or long term facility placement withactive referrals in process . * Echo Hanson RN - 02/26/2018 4:57 PM EDT Continuing to follow patient's situation to support discharge planning and facilitation by care management. Patient admitted from detention under Developmental Services in [facility] with [facility] Human [facility]. Exchanged emails this week with Carissa Psoada, Chief of who is supporting Bhakti Riojas and others to secure appropriate housing and supports for him. Recvd email today from Carissa stating they are pending approval from the [employer] once they identify the leasing cost of a home. She is available tomorrow for a phone checkin and Care Management leadership will call to check in as she will be in the [facility] office [phone] ext [phone]. Guardian has been communicated with by HEATHER Clarke. Care Mgmt leadership to continue to follow and [facility] Patient requires single-level entry to home which prevents his return to previous living situation. Echo Hanson RN, MSN, ACM-mercerizing range controller, Care Management [phone] / pager [phone] * Abimbola Goldstein MD - 02/26/2018 8:28 AM EDT [facility] Attending Daily Progress Note Patient [...] -- BMP check weekly, next check on 820 AM labs- Na 146: liberalized fluid restriction [...] Facesheet ABIMBOLA GOLDSTEIN MD Hospital Medicine Pager [phone] IPI Certification I certify that I am a D-H credentialed attending provider with admitting privileges and that the patient meets or has met medical necessity to require an inpatient IPI level of care meeting a minimumof two midnights or is on the [facility] inpatient only procedure list (status C) due to: the patient has met Inpatient IPI criteria and is awaiting rehabilitation or long term facility placement withactive referrals in process . [...] received. Left voicemail for Bhakti Riojas, Senior Hoop Rolls Operator for [employer] [phone]. Called [facility] office [phone]. Spoke with Lali. She reports that Noel Estrella is assigned reviewer. States she will email her to check on status and call back. Spoke with Bettina Sweettomy (Guardian/sister) [phone] (H). She reports that she spoke with [employer] last week and they told her they were looking at a new detention in [place] and a rental property. States this was her last report from them. Tricia Gerber RN Case Aircraft Communicator of Care Management [email or web address] Pager: [phone] * Abimbola Goldstein MD - 02/25/2018 12:06 PM EDT [facility] Attending Daily Progress Note Patient [...] Facesheet ABIMBOLA GOLDSTEIN MD Hospital Medicine Pager [phone] IPI Certification I certify that I am a D-H credentialed attending provider with admitting privileges and that the patient meets or has met medical necessity to require an inpatient IPI level of care meeting a minimumof two midnights or is on the [facility] inpatient only procedure list (status C) due to: the patient has met Inpatient IPI criteria and is awaiting rehabilitation or long term facility placement withactive referrals in process . * Shruti Lozoya RN - 02/25/2018 4:52 AM EDT 02/24/18-02/25/18 [id number] Patient refusing to wear continuous masimo but does allow spot checks. The reason being the pt is not reliable to maintain safety with the cord continuously attached. Nursing will continue to monitor and will continue to spot check O2 levels with VS. * Abimbola Goldstein MD - 02/24/2018 10:37 AM EDT [facility] Attending Daily Progress Note Patient [...] contact information in Facesheet ABIMBOLA GOLDSTEIN MD [facility] Pager [phone] IPI Certification I certify that I am a D-H credentialed attending provider with admitting privileges and that the patient meets or has met medical necessity to require an inpatient IPI level of care meeting a minimumof two midnights or is on the CMS inpatient only procedure list (status C) due to: the patient has met Inpatient IPI criteria and is awaiting rehabilitation or long term facility placement withactive referrals in process . * Shruti Lozoya, RN - 02/24/2018 4:48 AM EDT 02/23/18-02/24/18 [id number] Patient refusing to wear continuous masimo. The reason being agitation of pt when wearing it, safety issues. Pt does allow spot checks with VS. Nursing actions taken during this shift to address patient???s refusal included continued educationabout importance of care, importance of O2 monitoring. Will inform MD of any changes, * Abimbola Goldstein MD - 02/23/2018 9:12 AM EDT [facility] Attending Daily Progress Note Patient [...] contact information in Facesheet ABIMBOLA GOLDSTEIN MD [facility] Pager [phone] IPI Certification I certify that I am a D-H credentialed attending provider with admitting privileges and that the patient meets or has met medical necessity to require an inpatient IPI level of care meeting a minimumof two midnights or is on the [facility] inpatient only procedure list (status C) due to: the patient has met Inpatient IPI criteria and is awaiting rehabilitation or long term facility placement withactive referrals in process . * Abimbola Goldstein MD - 02/22/2018 8:45 AM EDT [facility] Attending Daily Progress Note Patient [...] contact information in Facesheet ABIMBOLA GOLDSTEIN MD [facility] Pager [phone] IPI Certification I certify that I am a D-H credentialed attending provider with admitting privileges and that the patient meets or has met medical necessity to require an inpatient IPI level of care meeting a minimumof two midnights or is on the [facility] inpatient only procedure list (status C) due to: the patient has met Inpatient IPI criteria and is awaiting rehabilitation or long term facility placement withactive referrals in process . * Abimbola Goldstein MD - 02/21/2018 10:33 AM EDT [facility] Attending Daily Progress Note Patient [...] contact information in Facesheet ABIMBOLA GOLDSTEIN MD [facility] Pager [phone] IPI Certification I certify that I am a D-H credentialed attending provider with admitting privileges and that the patient meets or has met medical necessity to require an inpatient IPI level of care meeting a minimumof two midnights or is on the [facility] inpatient only procedure list (status C) due to: the patient has met Inpatient IPI criteria and is awaiting rehabilitation or long term facility placement withactive referrals in process . [...] pursuing placement. Have been in contact with [facility]. Per email on 02/18 looking at possible rental property Friday. We also have an opening in one of our group homes that may beable to meet his needs, however the director is on vacation until Friday so I cannot make the referral until then.. OCM management is also working with Carissa Posada Chief of Intellectual/Developmental Disabilities Services [facility] Human Services. Have requested to set-up weekly review meetings. Left voice mail for Level 2 reviewer at [facility] office [phone]. Request call back to discuss case. Case management will continue to follow and assist with discharge planning needs. Tricia Gerber RN Case Aircraft Communicator of Care Management [email or web address] Pager: [phone] * Maldonado Salazar MD - 02/20/2018 12:09 [...] contact information in Facesheet Maldonado Salazar MD [facility] Pager [phone] IPI Certification I certify that I am a D-H credentialed attending provider with admitting privileges and that the patient meets or has met medical necessity to require an inpatient IPI level of care meeting a minimumof two midnights or is on the [facility] inpatient only procedure list (status C) due to: the patient has met Inpatient IPI criteria and is awaiting rehabilitation or long term facility placement withactive referrals in process . * Maldonado Salazar MD - 02/19/2018 2:02 PM EDT [facility] Attending Daily Progress Note Patient [...] male with complex past medical history including ugillen hypotpituitarism, cognitive impairment, seizure disorder, who presented [...] contact information in Facesheet Maldonado Salazar MD [facility] Pager [phone] IPI Certification I certify that I am a D-H credentialed attending provider with admitting privileges and that the patient meets or has met medical necessity to require an inpatient IPI level of care meeting a minimumof two midnights or is on the [facility] inpatient only procedure list (status C) due to: the patient has met Inpatient IPI criteria and is awaiting rehabilitation or long term facility placement withactive referrals in process . [...] Salazar MD - 02/18/2018 2:13 PM EDT [facility] Attending Daily Progress Note Patient [...] Status: Full Decision Maker: Guardian Sister Bettina Maosn, contact information in Facesheet Maldonado Salazar MD Hospital Medicine Pager [phone] IPI Certification I certify that I am a D-H credentialed attending provider with admitting privileges and that the patient meets or has met medical necessity to require an inpatient IPI level of care meeting a minimumof two midnights or is on the [facility] inpatient only procedure list (status C) due to: the patient has met Inpatient IPI criteria and is awaiting rehabilitation or long term facility placement withactive referrals in process . * Tricia Gerber RN - 02/17/2018 5:15 PM EDT Sent email message to Bhakti Riojas- Senior Hoop Rolls Operator with [facility] [employer] [phone].??Request update on status of search for a home. ? Tricia Gerber RN Case Aircraft Communicator of Care Management [email or web address] ?Pager: [phone] * Maldonado Salazar MD - 02/17/2018 2:34 [...] contact information in Facesheet Maldonado Salazar MD [facility] Pager [phone] IPI Certification I certify that I am a D-H credentialed attending provider with admitting privileges and that the patient meets or has met medical necessity to require an inpatient IPI level of care meeting a minimumof two midnights or is on the [facility] inpatient only procedure list (status C) due to: the patient has met Inpatient IPI criteria and is awaiting rehabilitation or long term facility placement withactive referrals in process . * Maldonado Salazar MD - 02/16/2018 2:46 PM EDT [facility] Attending Daily Progress Note Patient [...] contact information in Facesheet Maldonado Salazar MD [facility] Pager [phone] IPI Certification I certify that I am a D-H credentialed attending provider with admitting privileges and that the patient meets or has met medical necessity to require an inpatient IPI level of care meeting a minimumof two midnights or is on the CMS inpatient only procedure list (status C) due to: the patient has met Inpatient IPI criteria and is awaiting rehabilitation or long term facility placement withactive referrals in process . * Maldoando Salazar MD - 02/15/2018 2:16 PM EDT [facility] Attending Daily Progress Note Patient [...] contact information in Facesheet Maldonado Salazar MD [facility] Pager [phone] IPI Certification I certify that I am a D-H credentialed attending provider with admitting privileges and that the patient meets or has met medical necessity to require an inpatient IPI level of care meeting a minimumof two midnights or is on the CMS inpatient only procedure list (status C) due to: the patient has met Inpatient IPI criteria and is awaiting rehabilitation or long term facility placement withactive referrals in process . * Maldonado Salazar MD - 02/14/2018 1:52 PM EDT [facility] Attending Daily Progress Note Patient [...] contact information in Facesheet Maldonado Salazar MD [facility] Pager [phone] IPI Certification I certify that I am a D-H credentialed attending provider with admitting privileges and that the patient meets or has met medical necessity to require an inpatient IPI level of care meeting a minimumof two midnights or is on the [facility] inpatient only procedure list (status C) due to: the patient has met Inpatient IPI criteria and is awaiting rehabilitation or long term facility placement withactive referrals in process . * Christopher Stanley MD - 02/13/2018 8:01 AM EDT [facility] Attending Daily Progress Note Patient [...] overnight events Case management reached out to detention about status of search A few behavioral outbursts overnight with no recent deviation from baseline. Feeling awesome thismorning and listening to [employer]. Good oral intake per nursing staff. Voiding regularly. Havingregular bowel movements. No other symptoms or offered complaints. Physical Exam Temp: [36.6 ??C (97.9 ??F)-36.8 ??C (98.2 ??F)] Heart Rate: [77-84] Resp: [18] BP: (134-143)/(71-75) SpO2: [99 %] Heart Rate from SPO2: -- General: Alert, interactive, responsive to questions, listening to [employer] HEENT: Moist mucous membranes Neck: No evident [...] contact information in Facesheet Christopher Stanley MD [facility] Pager [phone] IPI Certification I certify that I am a D-H credentialed attending provider with admitting privileges and that the patient meets or has met medical necessity to require an inpatient IPI level of care meeting a minimumof two midnights or is on the CMS inpatient only procedure list (status C) due to: the patient has met Inpatient IPI criteria and is awaiting rehabilitation or long term facility placement withactive referrals in process . * Tricia Gerber RN - 02/12/2018 3:58 PM EDT Sent message to Bhakti Riojas- Senior Hoop Rolls Operator with [facility] [employer] [phone]. Request update on status of search for a home. ?? Tricia Gerber RN Case Aircraft Communicator of Care Management [email or web address] Pager: [phone] * Christopher Stanley MD - 02/12/2018 7:40 [...] contact information in Facesheet Christopher Stanley MD [facility] Pager [phone] IPI Certification I certify that I am a D-H credentialed attending provider with admitting privileges and that the patient meets or has met medical necessity to require an inpatient IPI level of care meeting a minimumof two midnights or is on the CMS inpatient only procedure list (status C) due to: the patient has met Inpatient IPI criteria and is awaiting rehabilitation or long term facility placement withactive referrals in process . * Christopher Stanley MD - 02/11/2018 2:19 PM EDT [facility] Attending Daily Progress Note Patient [...] made him some unicorn poop out of [employer] and corn starch to play with today. [...] Code Status: Full Decision Maker: Guardian Sister Bettian Mason, contact information in Facesheet Christopher Stanley MD [facility] Pager [phone] IPI Certification I certify that I am a D-H credentialed attending provider with admitting privileges and that the patient meets or has met medical necessity to require an inpatient IPI level of care meeting a minimumof two midnights or is on the [facility] inpatient only procedure list (status C) due to: the patient has met Inpatient IPI criteria and is awaiting rehabilitation or long term facility placement withactive referrals in process . * Christopher Stanley MD - 02/10/2018 11:53 AM EDT [facility] Attending Daily Progress Note Patient [...] contact information in Facesheet Christopher Stanley MD [facility] Pager [phone] IPI Certification I certify that I am a D-H credentialed attending provider with admitting privileges and that the patient meets or has met medical necessity to require an inpatient IPI level of care meeting a minimumof two midnights or is on the CMS inpatient only procedure list (status C) due to: the patient has met Inpatient IPI criteria and is awaiting rehabilitation or long term facility placement withactive referrals in process . * Christopher Stanley MD - 02/09/2018 8:08 AM EDT [facility] Attending Daily Progress Note Patient [...] contact information in Facesheet Christopher Stanley MD [facility] Pager [phone] IPI Certification I certify that I am a D-H credentialed attending provider with admitting privileges and that the patient meets or has met medical necessity to require an inpatient IPI level of care meeting a minimumof two midnights or is on the [facility] inpatient only procedure list (status C) due to: the patient has met Inpatient IPI criteria and is awaiting rehabilitation or long term facility placement withactive referrals in process . * Christopher Stanley MD - 02/08/2018 10:43 AM EDT [facility] Attending Daily Progress Note Patient [...] Encourage normal sleep-wake cycle Christopher Stanley MD [facility] Pager [phone] IPI Certification I certify that I am a D-H credentialed attending provider with admitting privileges and that the patient meets or has met medical necessity to require an inpatient IPI level of care meeting a minimumof two midnights or is on the CMS inpatient only procedure list (status C) due to: the patient has met Inpatient IPI criteria and is awaiting rehabilitation or long term facility placement withactive referrals in process . * Christopher Stanley MD - 02/07/2018 7:45 AM EDT [facility] Attending Daily Progress Note Patient [...] alert, agitated, eating carrots and celery with POWER PLANT ENGINEER HEENT: Anicteric sclerae; moist mucous membranes Neck: [...] extra dose of quetiapine Christopher Stanley MD [facility] Pager [phone] IPI Certification I certify that I am a D-H credentialed attending provider with admitting privileges and that the patient meets or has met medical necessity to require an inpatient IPI level of care meeting a minimumof two midnights or is on the [facility] inpatient only procedure list (status C) due to: the patient has met Inpatient IPI criteria and is awaiting rehabilitation or long term facility placement withactive referrals in process . [...] minimumof two midnights or is on the [facility] inpatient only procedure list (status C) due to: Patient previously met IPI criteria and is now awaiting placement at a long term facility. FRAN GILLIAM MD 02/06/2018 Hospital Medicine Team Pager: #[phone] * Fran Gilliam MD - 02/05/2018 4:07 [...] and is now awaiting placement at a long term facility. FRAN GILLIAM MD 02/05/2018 Hospital Medicine Team Pager: #[phone] * Fran Gilliam MD - 02/04/2018 9:44 [...] minimumof two midnights or is on the [facility] inpatient only procedure list (status C) due to: Patient previously met IPI criteria and is now awaiting placement at a long term facility. FRAN GILLIAM MD 02/04/2018 Hospital Medicine Team Pager: #[phone] * Fran Gilliam MD - 02/03/2018 5:05 [...] and is now awaiting placement at a long term facility. FRAN GILLIAM MD 02/03/2018 Hospital Medicine Team Pager: #[phone] * Fran Gilliam MD - 02/02/2018 3:40 [...] minimumof two midnights or is on the [facility] inpatient only procedure list (status C) due to: Patient previously met IPI criteria and is now awaiting placement at a long term facility. FRAN GILLIAM MD 02/02/2018 Hospital Medicine Team Pager: #[phone] * Fran Gilliam MD - 02/01/2018 5:15 [...] minimumof two midnights or is on the [facility] inpatient only procedure list (status C) due to: Patient previously met IPI criteria and is now awaiting placement at a long term facility. FRAN GILLIAM MD 02/02/2018 Hospital Medicine Team Pager: #[phone] * Fran Gilliam MD - 01/31/2018 12:10 [...] minimumof two midnights or is on the [facility] inpatient only procedure list (status C) due to: Patient previously met IPI criteria and is now awaiting placement at a long term facility. FRAN GILLIAM MD 02/01/2018 Hospital Medicine Team Pager: #[phone] * Tricia Gerber RN - 01/30/2018 3:33 PM EDT Sent message to Bhakti Riojas- Senior Hoop Rolls Operator with [facility] [employer] [phone]. Request update on status of search for a home. Tricia Gerber RN Case Aircraft Communicator of Care Management [email or web address] Pager: [phone] * Noah Menard MD - 01/30/2018 8:06 [...] and is now awaiting placement at a long term facility. LOS >48hrs. Noah Menard MD 01/30/2018 Hospital Medicine Team Pager: #[phone] * Noah Menard MD - 01/29/2018 7:52 [...] and is now awaiting placement at a long term facility. LOS >48hrs. Noah Menard MD 01/29/2018 Hospital Medicine Team Pager: #[phone] * Yadi Mccauley MD - 01/28/2018 8:29 AM EDT ENDOCRINOLOGY FOLLOW UP INPATIENT NOTE [facility] Name: Miguel Angel Mason Date of Consultation: [...] Procedure Laterality Date ??? PRO OPEN ORACLE PROGRAMMER FIX ACETABULAR FX Left 09/04/2017 @OPEN TREATMENT, ACETABULAR FX (WRVU 25.41) performed by Amy Lance MD at [facility] MAIN OR Allergies Allergen Reactions [...] minimumof two midnights or is on the [facility] inpatient only procedure list (status C) due to: Patient previously met IPI criteria and is now awaiting placement at a long term facility. LOS >48hrs. Noah Menard MD 01/28/2018 Hospital Medicine Team Pager: #[phone] * Yadi Mccauley MD - 01/27/2018 4:19 PM EDT Images from the original note were not included. ENDOCRINOLOGY FOLLOW UP INPATIENT NOTE [facility] Name: Miguel Angel Mason Date of Consultation: [...] Procedure Laterality Date ??? PRO OPEN ORACLE PROGRAMMER FIX ACETABULAR FX Left 09/04/2017 @OPEN TREATMENT, ACETABULAR FX (WRVU 25.41) performed by Amy Lance MD at [facility] MAIN OR Allergies Allergen Reactions [...] for 01/23: Met with Bhakti Riojas- Senior Hoop Rolls Operator with [facility] [phone]. We reviewed patient and his needs. Expressed to her concerns for the disservice that has been done to this patient. He has remained in the hospital for an extended amount of time and [facility] has not been responsive or assistive [...] discharge planning needs. Tricia Gerber RN Case Aircraft Communicator of Care Management [email or web address] Pager: [phone] * Noah Menard MD - 01/27/2018 7:40 [...] and is now awaiting placement at a long term facility. LOS >48hrs. Noah Menard MD 01/27/2018 Hospital Medicine Team Pager: #[phone] * Noah Menadr MD - 01/26/2018 7:40 AM EDT Hospital [...] for discharge and awaiting placement at a long term facility. Active Problems: Active Hospital Problems Diagnosis [...] - 01/26 0700 In: 2540 [P.O.:2540] Out: 2050 [Urine:2049] Admit: 86.64 kg Physical Exam: GEN [...] for discharge and awaiting placement at a long term facility. # Left acetabular fracture: S/p operative [...] minimumof two midnights or is on the [facility] inpatient only procedure list (status C) due to: Patient previously met IPI criteria and is now awaiting placement at a long term facility. LOS >48hrs. Noah Menard MD 01/26/2018 Hospital Medicine Team Pager: #[phone] * Dani Montoya RN - 01/25/2018 5:18 [...] for discharge and awaiting placement at a long term facility. Active Problems: Active Hospital Problems Diagnosis [...] for discharge and awaiting placement at a long term facility. # Left acetabular fracture: S/p operative [...] minimumof two midnights or is on the [facility] inpatient only procedure list (status C) due to: Patient previously met IPI criteria and is now awaiting placement at a long term facility. LOS >48hrs. Noah Menard MD 01/25/2018 Hospital Medicine Team Pager: #[phone] * Noah Menard MD - 01/24/2018 7:14 [...] for discharge and awaiting placement at a long term facility. Active Problems: Active Hospital Problems Diagnosis [...] for discharge and awaiting placement at a long term facility. # Left acetabular fracture: S/p operative [...] minimumof two midnights or is on the [facility] inpatient only procedure list (status C) due to: Patient previously met IPI criteria and is now awaiting placement at a long term facility. LOS >48hrs. Noah Menard MD 01/24/2018 Hospital Medicine Team Pager: #[phone] * Abimbola Goldstein MD - 01/23/2018 8:18 [...] presumed environmental given change from his normal detention to the variably hospital situation. Had been [...] WBAT, not able to return to current detention and appreciate CM/SW assistance who are reaching out to [facility] for other options - may be home opening in March per report. Denied at SNFs with behavior. [facility] seems only option but no viable [...] none DVT PPX: SCDs Anticipated Disposition: Currently detention is not feasible - needs to be able to (at a minimum) walk to the bathroom and go up/down 13 stairs (which mimics the current living situation at his detention). Per our SW, [facility] is discussing options but no current viable option. SNFs declined. Team Pager( Coverage 27/01): # [phone] PCP: NAKIA Cifuentes [phone] Attestation: IPI Certification I certify that I am a D-H credentialed attending provider with admitting privileges and that the patient meets or has met medical necessity to require an inpatient IPI level of care meeting a minimumof two midnights or is on the [facility] inpatient only procedure list (status C) due to: the patient has met Inpatient IPI criteria and is awaiting rehabilitation or long term facility placement withactive referrals in process PCP: NAKIA Cifuentes [phone] ABIMBOLA GOLDSTEIN MD 01/23/2018 * Tricia Gerber RN - 01/22/2018 5:12 PM EDT Received call that YULISA Quevedo RN will be completing on-site visit on 01/23. Tricia Gerber RN Case Aircraft Communicator of Care Management [email or web address] Pager: [phone] * Debbie Keller DT - 01/22/2018 12:35 [...] continue to send. Please call diet office [phone] to modify snack any time. Nursing had [...] presumed environmental given change from his normal detention to the variably hospital situation. Had been [...] WBAT, not able to return to current detention and appreciate CM/SW assistance who are reaching out to [facility] for other options - may be home opening in March per report. Denied at SNFs with behavior. [facility] seems only option but no viable [...] none DVT PPX: SCDs Anticipated Disposition: Currently detention is not feasible - needs to be able to (at a minimum) walk to the bathroom and go up/down 13 stairs (which mimics the current living situation at his detention). Per our SW, [facility] is discussing options but no current viable option. SNFs declined. Team Pager(MD Coverage 27/01): # [phone] PCP: NAKIA Cifuentes [phone] Attestation: IPI Certification I certify that I [...] IPI criteria and is awaiting rehabilitation or long term facility placement withactive referrals in process PCP: NAKIA Cifuentes [phone] ABIMBOLA GOLDSTEIN MD 01/22/2018 * Danay Monge MD - 01/21/2018 3:18 PM EDT Hospital Medicine Attending Daily Progress Note Admit Date: 09/02/2017 Hospital Day 141 days Active Hospital Problems Diagnosis ??? S/P ORIF left acetabulum fracture 09/04/2017 Dr. Lance ??? Acute urinary retention ??? Diabetes insipidus ??? Adrenal insufficiency ??? Panhypopituitarism ??? Seizure disorder ??? Hypothyroidism Resolved Hospital Problems Diagnosis Date Resolved ??? Postoperative anemia due to acute blood loss 12/09/2017 [facility] Active Non-Hospital Problems Diagnosis ??? Insomnia ??? [...] characterized on CT exam. XR knee, L 5/14 Impression No fracture or dislocation No large [...] presumed environmental given change from his normal detention to the variably hospital situation. Had been [...] WBAT, not able to return to current detention and appreciate CM/SW assistance who are reaching out to [facility] for other options - may be home opening in March per report. Denied at SNFs with behavior. [facility] seems only option but no viable [...] none DVT PPX: SCD Anticipated Disposition: Currently detention is not feasible - needs to be able to (at a minimum) walk to the bathroom and go up/down 13 stairs (which mimics the current living situation at his detention). Per our SW, [facility] is discussing options but no current viable option. SNFs declined. Team Pager( Coverage 27/01): # [phone] PCP: NAKIA Cifuentes [phone] Attestation: IPI Certification I certify that I [...] IPI criteria and is awaiting rehabilitation or long term facility placement withactive referrals in process PCP: NAKIA Cifuentes [phone] DANAY MONGE MD 01/21/2018 * Daany Monge MD - 01/20/2018 11:38 AM EDT [...] anemia due to acute blood loss 12/09/2017 [facility] Active Non-Hospital Problems Diagnosis ??? Insomnia ??? [...] presumed environmental given change from his normal detention to the variably hospital situation. Had been [...] WBAT, not able to return to current detention and appreciate CM/SW assistance who are reaching out to [facility] for other options - may be home opening in March per report. Denied at SNFs with behavior. [facility] seems only option but no viable [...] none DVT PPX: SCD Anticipated Disposition: Currently detention is not feasible - needs to be able to (at a minimum) walk to the bathroom and go up/down 13 stairs (which mimics the current living situation at his detention). Per our SW, [facility] is discussing options but no current viable option. SNFs declined. Team Pager( Coverage 27/01): # [phone] PCP: NAKIA Cifuentes [phone] Attestation: IPI Certification I certify that I am a D-H credentialed attending provider with admitting privileges and that the patient meets or has met medical necessity to require an inpatient IPI level of care meeting a minimumof two midnights or is on the [facility] inpatient only procedure list (status C) due to: the patient has met Inpatient IPI criteria and is awaiting rehabilitation or long term facility placement withactive referrals in process Crista Aguilar MD PCP: NAKIA Cifuentes [phone] DANAY MONGE MD 01/20/2018 * Danay Monge [...] presumed environmental given change from his normal detention to the variably hospital situation. Had been [...] WBAT, not able to return to current detention and appreciate CM/SW assistance who are reaching out to [facility] for other options - may be home opening in March per report. Denied at SNFs with behavior. [facility] seems only option but no viable [...] none DVT PPX: SCD Anticipated Disposition: Currently detention is not feasible - needs to be able to (at a minimum) walk to the bathroom and go up/down 13 stairs (which mimics the current living situation at his detention). Per our SW, [facility] is discussing options but no current viable option. SNFs declined. Team Pager( Coverage 27/01): # [phone] PCP: NAKIA Cifuentes [phone] Attestation: IPI Certification I certify that I [...] IPI criteria and is awaiting rehabilitation or long term facility placement withactive referrals in process Crista Aguilar MD PCP: NAKIA Cifuentes [phone] DANAY MONGE MD 01/19/2018 * Danay Monge [...] anemia due to acute blood loss 12/09/2017 [facility] Active Non-Hospital Problems Diagnosis ??? Insomnia ??? [...] presumed environmental given change from his normal detention to the variably hospital situation. Had been [...] WBAT, not able to return to current detention and appreciate CM/SW assistance who are reaching out to [facility] for other options - may be home opening in March per report. Denied at SNFs with behavior. [facility] seems only option but no viable [...] none DVT PPX: SCD Anticipated Disposition: Currently detention is not feasible - needs to be able to (at a minimum) walk to the bathroom and go up/down 13 stairs (which mimics the current living situation at his detention). Per our SW, [facility] is discussing options but no current viable option. SNFs declined. Team Pager( Coverage 27/01): # [phone] PCP: NAKIA Cifuentes [phone] Attestation: IPI Certification I certify that I [...] IPI criteria and is awaiting rehabilitation or long term facility placement withactive referrals in process Crista Aguilar MD PCP: NAKIA Cifuentes [phone] DANAY MONGE MD 01/18/2018 * Danay Monge [...] anemia due to acute blood loss 12/09/2017 [facility] Active Non-Hospital Problems Diagnosis ??? Insomnia ??? [...] presumed environmental given change from his normal detention to the variably hospital situation. Had been [...] WBAT, not able to return to current detention and appreciate CM/SW assistance who are reaching out to [facility] for other options - may be home opening in March per report. Denied at SNFs with behavior. [facility] seems only option but no viable [...] none DVT PPX: SCD Anticipated Disposition: Currently detention is not feasible - needs to be able to (at a minimum) walk to the bathroom and go up/down 13 stairs (which mimics the current living situation at his detention). Per our SW, [facility] is discussing options but no current viable option. SNFs declined. Team Pager(MD Coverage 27/01): # [phone] PCP: NAKIA Cifuentes [phone] Attestation: IPI Certification I certify that I am a D-H credentialed attending provider with admitting privileges and that the patient meets or has met medical necessity to require an inpatient IPI level of care meeting a minimumof two midnights or is on the [facility] inpatient only procedure list (status C) due to: the patient has met Inpatient IPI criteria and is awaiting rehabilitation or long term facility placement withactive referrals in process Crista Aguilar MD PCP: NAKIA Cifuentes [phone] DANAY MONGE MD 01/17/2018 * Crista Aguilar [...] History: No acute events ROS: Talked with POWER PLANT ENGINEER. Miguel Angel went out to look at [...] presumed environmental given change from his normal detention to the variably hospital situation. Had been [...] WBAT, not able to return to current detention and appreciate CM/SW assistance who are reaching out to [facility] for other options - may be home opening in March per report. Denied at SNFs with behavior. [facility] seems only option but no viable [...] none DVT PPX: SCD Anticipated Disposition: Currently detention is not feasible - needs to be able to (at a minimum) walk to the bathroom and go up/down 13 stairs (which mimics the current living situation at his detention). Per our SW, [facility] is discussing options but no current viable option. SNFs declined. Team Pager( Coverage 27/01): # [phone] PCP: NAKIA Cifuentes [phone] Attestation: IPI Certification I certify that I [...] IPI criteria and is awaiting rehabilitation or long term facility placement withactive referrals in process Crista [...] visit. ROS limited by mental status. Per POWER PLANT ENGINEER sleeping more today -did not finish lunch. [...] presumed environmental given change from his normal detention to the variably hospital situation. Had been [...] WBAT, not able to return to current detention and appreciate CM/SW assistance who are reaching out to [facility] for other options - may be home opening in March per report. Denied at SNFs with behavior. [facility] seems only option but no viable [...] none DVT PPX: SCD Anticipated Disposition: Currently detention is not feasible - needs to be able to (at a minimum) walk to the bathroom and go up/down 13 stairs (which mimics the current living situation at his detention). Per our SW, [facility] is discussing options but no current viable option. SNFs declined. Team Pager( Coverage 27/01): # [phone] PCP: NAKIA Cifuentes [phone] Attestation: IPI Certification I certify that I [...] IPI criteria and is awaiting rehabilitation or long term facility placement withactive referrals in process Crista Aguilar MD 01/15/2018 * Tricia Gerber RN - 01/15/2018 1:14 PM EDT Left message for Lc Hull# [phone]- director of [facility]. Left voice mail for Carissa Posada, Chief of Developmental Services for the [facility]. [phone]. Tricia Gerber tower excavator operator Office of Care Management [email or web address] Pager: [phone] * Adia Clarke RN - 01/15/2018 10:34 [...] pain or SOB. No acute concerns from POWER PLANT ENGINEER but notices still some unsteadiness with gait. [...] presumed environmental given change from his normal detention to the variably hospital situation. Had been [...] clarify if able to return to current detention and may need to explore other options [...] none DVT PPX: SCD Anticipated Disposition: Currently detention does not seem feasible - needs to be able to (at a minimum) walk to the bathroom and go up/down 13 stairs (which mimics the current living situation at his detention). Per our SW, [facility] is discussing options but no current viable option. SNFs declined. Team Pager(MD Coverage 27/01): # [phone] PCP: NAKIA Cifuentes [phone] Attestation: IPI Certification I certify that I am a D-H credentialed attending provider with admitting privileges and that the patient meets or has met medical necessity to require an inpatient IPI level of care meeting a minimumof two midnights or is on the [facility] inpatient only procedure list (status C) due to: the patient has met Inpatient IPI criteria and is awaiting rehabilitation or long term facility placement withactive referrals in process Crista [...] presumed environmental given change from his normal detention to the variably hospital situation. Had been [...] clarify if able to return to current detention and may need to explore other options [...] SCD Anticipated Disposition: SNF vs back to detention --> no longer being seen by PT/OT, he continues to take a few steps with assistance and using a walker but needs to be able to (at a minimum) walk to the bathroom and go up/down 13 stairs (which mimics the current living situation at his detention) Team Pager( Coverage 27/01): # [phone] PCP: NAKIA Cifuentes [phone] Attestation: IPI Certification I certify that I [...] IPI criteria and is awaiting rehabilitation or long term facility placement withactive referrals in process Crista Aguilar MD 01/13/2018 * Tricia Gerber RN - 01/12/2018 4:32 PM EDT Received call from Carissa Posada, Chief of Developmental Services for the [facility] of [facility]. [phone]. Stated they are having a large meeting with the state today to help findappropriate housing for Miguel Angel. Reports they should have an update on plan by 01/13/18. Tricia Gerber RN Case Aircraft Communicator of Care Management [email or web address] Pager: [phone] * Guerrero Bah MD - 01/12/2018 4:29 PM EDT Images from the original note were not included. Brief Endocrinology Follow up note Name: Miguel Angel Mason Date: 01/12/18 Room: 155/155-A HPI: Miguel Angel Mason??is a 27 y.o.male??with [...] MD Endocrinology, Diabetes and Metabolism Fellow Pager #[phone] 01/12/2018 * Crista Aguilar MD - 01/12/2018 [...] presumed environmental given change from his normal detention to the variably hospital situation. Stopped opioids [...] clarify if able to return to current detention and may need to explore other options [...] SCD Anticipated Disposition: SNF vs back to detention --> no longer being seen by PT/OT, he continues to take a few steps with assistance and using a walker but needs to be able to (at a minimum) walk to the bathroom and go up/down 13 stairs (which mimics the current living situation at his detention) Team Pager( Coverage 27/01): # [phone] PCP: NAKIA Cifuentes [phone] Attestation: IPI Certification I certify that I [...] IPI criteria and is awaiting rehabilitation or long term facility placement withactive referrals in process Crista [...] presumed environmental given change from his normal detention to the variably hospital situation. Stopped opioids [...] clarify if able to return to current detention and may need to explore other options [...] SCD Anticipated Disposition: SNF vs back to detention --> no longer being seen by PT/OT, he continues to take a few steps with assistance and using a walker but needs to be able to (at a minimum) walk to the bathroom and go up/down 13 stairs (which mimics the current living situation at his detention) Team Pager(MD Coverage 27/01): # [phone] PCP: NAKIA Cfiuentes [phone] Attestation: IPI Certification I certify that I am a D-H credentialed attending provider with admitting privileges and that the patient meets or has met medical necessity to require an inpatient IPI level of care meeting a minimumof two midnights or is on the [facility] inpatient only procedure list (status C) due to: the patient has met Inpatient IPI criteria and is awaiting rehabilitation or long term facility placement withactive referrals in process Crista [...] presumed environmental given change from his normal detention to the variably hospital situation. Stopped opioids [...] clarify if able to return to current detention and may need to explore other options [...] SCD Anticipated Disposition: SNF vs back to detention --> no longer being seen by PT/OT, he continues to take a few steps with assistance and using a walker but needs to be able to (at a minimum) walk to the bathroom and go up/down 13 stairs (which mimics the current living situation at his detention) Team Pager( Coverage 27/01): # [phone] PCP: NAKIA Cifuentes [phone] Attestation: IPI Certification I certify that I [...] IPI criteria and is awaiting rehabilitation or long term facility placement withactive referrals in process Crista Aguilar MD 01/10/2018 * Yadi Mccauley MD - 01/10/2018 11:39 AM EDT Images from the original note were not included. Endocrinology Follow up note Name: Miguel Angel Mason Date: 01/10/18 Room: [address] [place] [address] HPI: Miguel Angel Mason??is a 27 y.o.male??with [...] Procedure Laterality Date ??? PRO OPEN ORACLE PROGRAMMER FIX ACETABULAR FX Left 09/04/2017 @OPEN TREATMENT, ACETABULAR FX (WRVU 25.41) performed by Amy Lance MD at [facility] MAIN OR No family history [...] MD Endocrinology, Diabetes and Metabolism Fellow Pager #[phone] 01/10/2018 I have seen the patient and reviewed Dr. Guerrero Nick's above history and I agree with the details as written. The assessment and plan were formulated in discussion with me and I agree with them as documented. Yadi Mccauley MD, PhD, FACP, FACE * Tricia Gerber, RN - 01/09/2018 3:02 PM EDT Left message for Subha Tejeda # [phone]- nurse who oversees detention. Left message for Lc Hull# [phone]- director of [facility]. Called town offices in [place], [place] . They do not know of any other facilities that could accommodate patient needs. Left voice mail for Carissa Posada, Chief of Developmental Services for the [facility]. [phone]. Case management will continue to follow. Tricia Gerber RN Case Aircraft Communicator of Care Management [email or web address] Pager: [phone] * Maldonado Salazar MD - 01/09/2018 11:43 [...] History / ROS: - quietly listening to [employer] book this morning Physical Exam Vitals Range [...] present, no facial asymmetry Studies reviewed in eD. Remarkable for the following: LABS: No results [...] presumed environmental given change from his normal detention to the variably hospital situation. Stopped opioids [...] SCD Anticipated Disposition: SNF vs back to detention --> no longer being seen by PT/OT, he continues to take a few steps with assistance and using a walker but needs to be able to (at a minimum) walk to the bathroom and go up/down 13 stairs (which mimics the current living situation at his detention) Team Pager( Coverage 27/01): # [phone] PCP: NAKIA Cifuentes [phone] Attestation: IPI Certification I certify that I [...] IPI criteria and is awaiting rehabilitation or long term facility placement withactive referrals in process Maldonado [...] seen for nutrition follow up. Spoke with POWER PLANT ENGINEER who reported a good appetite that has been ongoing. No difficulty chewing or swallowing. No nausea or vomiting reported. POWER PLANT ENGINEER requestedhealthy snacks at bedside: carrot sticks, celery stick, cheese and grapes & apples - will add to nourshments each day. POWER PLANT ENGINEER had no questions or concerns at this [...] SCD Anticipated Disposition: SNF vs back to detention --> no longer being seen by PT/OT, he continues to take a few steps with assistance and using a walker but needs to be able to (at a minimum) walk to the bathroom and go up/down 13 stairs (which mimics the current living situation at his detention) Team Pager( Coverage 27/01): # [phone] PCP: NAKIA Cifuentes [phone] Attestation: IPI Certification I certify that I am a D-H credentialed attending provider with admitting privileges and that the patient meets or has met medical necessity to require an inpatient IPI level of care meeting a minimumof two midnights or is on the [facility] inpatient only procedure list (status C) due to: the patient has met Inpatient IPI criteria and is awaiting rehabilitation or long term facility placement withactive referrals in process Maldonado [...] SCD Anticipated Disposition: SNF vs back to detention --> no longer being seen by PT/OT, he continues to take a few steps with assistance and using a walker but needs to be able to (at a minimum) walk to the bathroom and go up/down 13 stairs (which mimics the current living situation at his detention) Team Pager( Coverage 27/01): # [phone] PCP: NAKIA Cifuentes [phone] Attestation: IPI Certification I certify that I [...] IPI criteria and is awaiting rehabilitation or long term facility placement withactive referrals in process Maldonado [...] present, no facial asymmetry Studies reviewed in eD. Remarkable for the following: LABS: No results [...] something he normally likes to do at detention, then try to avail him ofthat here. [...] SCD Anticipated Disposition: SNF vs back to detention pending progress with PT/OT --> need to discuss ongoing therapy involvement as he has not been seen in several days, at a minimum he needs to walk to bathroom and go up/down 13 stairs (which mimics the current living situation at his detention) Team Pager( Coverage 27/01): # [phone] PCP: NAKIA Cifuentes [phone] Attestation: IPI Certification I certify that I [...] IPI criteria and is awaiting rehabilitation or long term facility placement withactive referrals in process Maldonado Salazar MD 01/06/2018 * Yadi Mccauley MD - 01/06/2018 9:57 AM EDT Images from the original note were not included. Endocrinology Follow up note Name: Miguel Angel Mason Date: 01/06/18 Room: [address] [place] [address]-A HPI: Miguel Angel Mason??is a 27 y.o.male??with [...] Procedure Laterality Date ??? PRO OPEN ORACLE PROGRAMMER FIX ACETABULAR FX Left 09/04/2017 @OPEN TREATMENT, ACETABULAR FX (WRVU 25.41) performed by Amy Lance MD at [facility] MAIN OR No family history [...] MD Endocrinology, Diabetes and Metabolism Fellow Pager #[phone] 01/06/2018 I have seen the patient and [...] something he normally likes to do at detention, then try to avail him ofthat here. [...] SCD Anticipated Disposition: SNF vs back to detention pending progress with PT/OT --> need to discuss ongoing therapy involvement as he has not been seen in several days, at a minimum he needs to walk to bathroom and go up/down 13 stairs (which mimics the current living situation at his detention) Team Pager( Coverage 27/01): # [phone] PCP: NAKIA Cifuentes [phone] Attestation: IPI Certification I certify that I [...] IPI criteria and is awaiting rehabilitation or long term facility placement withactive referrals in process Maldonado Salazar MD 01/05/2018 * Yadi Mccauley MD - 01/05/2018 9:51 AM EDT Images from the original note were not included. Endocrinology Follow up note Name: Miguel Angel Mason Date: 01/05/18 Room: [address] [place] [address]-A HPI: Miguel Angel D Barrup??is a 27 y.o.male??with PMH significant for panhypopituitarism [...] Procedure Laterality Date ??? PRO OPEN ORACLE PROGRAMMER FIX ACETABULAR FX Left 09/04/2017 @OPEN TREATMENT, ACETABULAR FX (WRVU 25.41) performed by Amy Lance MD at [facility] MAIN OR No family history [...] MD Endocrinology, Diabetes and Metabolism Fellow Pager #[phone] 01/05/2018 Spoke with primary team. We recommend [...] something he normally likes to do at detention, then try to avail him ofthat here. [...] SCD Anticipated Disposition: SNF vs back to detention pending progress with PT/OT Team Pager( Coverage 27/01): # [phone] PCP: NAKIA Cifuentes [phone] Attestation: IPI Certification I certify that I am a D-H credentialed attending provider with admitting privileges and that the patient meets or has met medical necessity to require an inpatient IPI level of care meeting a minimumof two midnights or is on the [facility] inpatient only procedure list (status C) due to: the patient has met Inpatient IPI criteria and is awaiting rehabilitation or long term facility placement withactive referrals in process Maldonado Salazar MD 01/04/2018 * Lindsey Walsh, - 01/04/2018 9:54 AM EDT Images from the original note were not included. ENDOCRINOLOGY FOLLOW UP INPATIENT NOTE [facility] Name: Miguel Angel Mason Date of Consultation: [...] Procedure Laterality Date ??? PRO OPEN ORACLE PROGRAMMER FIX ACETABULAR FX Left 09/04/2017 @OPEN TREATMENT, ACETABULAR FX (WRVU 25.41) performed by Amy Lance MD at [facility] MAIN OR Allergies Allergen Reactions [...] with 3.2L fluid restriction was recommended to design consultant provider overnight. We continue to recommend [...] the on-call Endocrinology service. GENEVIEVE PAGE MD Mining Captainequipment operation instructor Section of Endocrinology [facility] * Maldonado Salazar MD - 01/03/2018 12:31 [...] something he normally likes to do at detention, then try to avail him ofthat here. [...] SCD Anticipated Disposition: SNF vs back to detention pending progress with PT/OT Team Pager( Coverage 27/01): # [phone] PCP: NAKIA Cifuentes [phone] Attestation: IPI Certification I certify that I [...] IPI criteria and is awaiting rehabilitation or long term facility placement withactive referrals in process Maldonado [...] something he normally likes to do at detention, then try to avail him ofthat here. [...] SCD Anticipated Disposition: SNF vs back to detention pending progress with PT/OT Team Pager( Coverage 27/01): # [phone] PCP: NAKIA Cifuentes [phone] Attestation: IPI Certification I certify that I am a D-H credentialed attending provider with admitting privileges and that the patient meets or has met medical necessity to require an inpatient IPI level of care meeting a minimumof two midnights or is on the [facility] inpatient only procedure list (status C) due to: the patient has met Inpatient IPI criteria and is awaiting rehabilitation or long term facility placement withactive referrals in process FRAN GILLIAM MD 01/03/2018 * Lindsey Walsh DO - 01/02/2018 11:00 AM EDT Images from the original note were not included. ENDOCRINOLOGY FOLLOW UP INPATIENT NOTE [facility] Name: Miguel Angel Mason Date of Consultation: [...] Procedure Laterality Date ??? PRO OPEN ORACLE PROGRAMMER FIX ACETABULAR FX Left 09/04/2017 @OPEN TREATMENT, ACETABULAR FX (WRVU 25.41) performed by Amy Lance MD at [facility] MAIN OR Allergies Allergen Reactions [...] agree with this plan. GENEVIEVE PAGE MD Mining Captainequipment operation instructor Section of Endocrinology [facility] * Fran Gilliam MD - 01/01/2018 4:20 [...] something he normally likes to do at detention, then try to avail him ofthat here. [...] SCD Anticipated Disposition: SNF vs back to detention pending progress with PT/OT Team Pager( Coverage 27/01): # [phone] PCP: NAKIA Cifuentes [phone] Attestation: IPI Certification I certify that I am a D-H credentialed attending provider with admitting privileges and that the patient meets or has met medical necessity to require an inpatient IPI level of care meeting a minimumof two midnights or is on the [facility] inpatient only procedure list (status C) due to: the patient has met Inpatient IPI criteria and is awaiting rehabilitation or long term facility placement withactive referrals in process FRAN GILLIAM MD 01/01/2018 * Chavez Kelsey RN - 01/01/2018 3:14 PM EDT OFFICE OF CARE MANAGEMENT Met briefly with miguel angel this afternoon. He is in bed and appears very agitated and upset at this time. CM call to Lc Hull- [phone] 2. VM left with CM contact to f/u and discuss state assistance for appropriate placement for this gentleman. He does not appear to require further formal PT. He has been cleared to walk with nursing. He is currently 2 person assist on stairs. Pt is unable to return to detention setting as his bedroom is second level and Miguel Angel unable to negotiate stairs safely. Discharge plan unclear at this time. * Fran Gilliam MD - 12/31/2017 2:04 PM EDT [facility] Medicine Attending Daily Progress Note Admit [...] something he normally likes to do at detention, then try to avail him ofthat here. [...] SCD Anticipated Disposition: SNF vs back to detention pending progress with PT/OT Team Pager( Coverage 27/01): # [phone] PCP: NAKIA Cifuentes [phone] Attestation: IPI Certification I certify that I am a D-H credentialed attending provider with admitting privileges and that the patient meets or has met medical necessity to require an inpatient IPI level of care meeting a minimumof two midnights or is on the [facility] inpatient only procedure list (status C) due to: the patient has met Inpatient IPI criteria and is awaiting rehabilitation or long term facility placement withactive referrals in process FRAN [...] something he normally likes to do at detention, then try to avail him ofthat here. [...] SCD Anticipated Disposition: SNF vs back to detention pending progress with PT/OT Team Pager( Coverage 27/01): # [phone] PCP: NAKIA Cifuentes [phone] Attestation: IPI Certification I certify that I am a D-H credentialed attending provider with admitting privileges and that the patient meets or has met medical necessity to require an inpatient IPI level of care meeting a minimumof two midnights or is on the [facility] inpatient only procedure list (status C) due to: the patient has met Inpatient IPI criteria and is awaiting rehabilitation or long term facility placement withactive referrals in process FRAN [...] monitor status. Murtaza Bruce PT, DPT Pager [phone] Inpatient Rehabilitation * Skyla Ayala, OT - [...] participation as able. Skyla Ayala, OTR Pager [phone] * Fran Gilliam MD - 12/29/2017 1:08 [...] anemia due to acute blood loss 12/09/2017 [facility] Active Non-Hospital Problems Diagnosis ??? Insomnia ??? [...] something he normally likes to do at detention, then try to avail him ofthat here. [...] SCD Anticipated Disposition: SNF vs back to detention pending progress with PT/OT Team Pager( Coverage 27/01): # [phone] PCP: NAKIA Cifuentes [phone] Attestation: IPI Certification I certify that I am a D-H credentialed attending provider with admitting privileges and that the patient meets or has met medical necessity to require an inpatient IPI level of care meeting a minimumof two midnights or is on the [facility] inpatient only procedure list (status C) due to: the patient has met Inpatient IPI criteria and is awaiting rehabilitation or long term facility placement withactive referrals in process FRAN GILLIAM MD 12/29/2017 * Tricia Gerber, RN - 12/29/2017 11:15 AM EDT Left another voice mail for Subha Ileana [phone] at [employer]. Request additionalinformation regarding detention/ sitters/ developmental services waiver. [facility] has requested to remove the sitters they have been providing as they are getting burnedout and don't feel they are needed any more. Spoke with Lc Hull ([facility] Small Animal Veterinarian) at [phone]. He reports that having sitters here or not does not affect pateints funding. States what may affect his funding is length of time spent in the hospital. Reports funding can end after 90 days in hospital. [facility] department of aging and independent living along [...] reports that Naheed Estrella was working with [facility] on an agreement. Informed him that per Sary liaison, patient is a regional denial. States he was not aware of that. Explained that patient is medically ready, in need of placement, and request assistance with placement. He reports that he will send RN out to review and determine if he is possibly ready for return to detention. Case management will continue to follow. Tricia Gerber RN Case Aircraft Communicator of Care Management [email or web address] Pager: [phone] * Fran Gilliam MD - 12/28/2017 2:09 [...] something he normally likes to do at detention, then try to avail him ofthat here. [...] SCD Anticipated Disposition: SNF vs back to detention pending progress with PT/OT Team Pager( Coverage 27/01): # [phone] PCP: NAKIA Cifuentes [phone] Attestation: IPI Certification I certify that I am a D-H credentialed attending provider with admitting privileges and that the patient meets or has met medical necessity to require an inpatient IPI level of care meeting a minimumof two midnights or is on the [facility] inpatient only procedure list (status C) due to: the patient has met Inpatient IPI criteria and is awaiting rehabilitation or long term facility placement withactive referrals in process FRAN GILLIAM MD 12/28/2017 * Ren Dumont MD - 12/28/2017 11:04 AM EDT Images from the original note were not included. Endocrinology Follow up note Name: Miguel Angel Mason Date: 12/28/17 Room: [facility]/155-A HPI: Miguel Angel Mason is a 27 [...] Procedure Laterality Date ??? PRO OPEN ORACLE PROGRAMMER FIX ACETABULAR FX Left 09/04/2017 @OPEN TREATMENT, ACETABULAR FX (WRVU 25.41) performed by Amy Lance MD at [facility] MAIN OR No family history [...] MD Endocrinology, Diabetes and Metabolism Fellow Pager #[phone] 12/28/2017 I have disucssed patient with Dr. [...] something he normally likes to do at detention, then try to avail him of that [...] SCD Anticipated Disposition: SNF vs back to detention pending progress with PT/OT Team Pager( Coverage 27/01): # [phone] PCP: NAKIA Cifuentes [phone] Attestation: IPI Certification I certify that I am a D-H credentialed attending provider with admitting privileges and that the patient meets or has met medical necessity to require an inpatient IPI level of care meeting a minimumof two midnights or is on the [facility] inpatient only procedure list (status C) due to: the patient has met Inpatient IPI criteria and is awaiting rehabilitation or long term facility placement withactive referrals in process FRAN [...] Name: Miguel Angel Mason Date: 12/26/17 [facility]: [facility] HPI: Miguel Angel Mason is a 27 [...] Procedure Laterality Date ??? PRO OPEN ORACLE PROGRAMMER FIX ACETABULAR FX Left 09/04/2017 @OPEN TREATMENT, ACETABULAR FX (WRVU 25.41) performed by Amy Lance MD at [facility] MAIN OR No family history [...] MD Endocrinology, Diabetes and Metabolism Fellow Pager #[phone] 12/26/2017 I have discussed patient with Dr. [...] Intake/Output Summary (Last 24 hours) at 12/26/17 0749 Last data filed at 12/25/17 1934 Gross [...] something he normally likes to do at detention, then try to avail him of that [...] Disposition: SNF Team Pager(MD Coverage 27/01): # [phone] PCP: NAKIA Cifuentes [phone] Attestation: IPI Certification I certify that I am a D-H credentialed attending provider with admitting privileges and that the patient meets or has met medical necessity to require an inpatient IPI level of care meeting a minimumof two midnights or is on the [facility] inpatient only procedure list (status C) due to: the patient has met Inpatient IPI criteria and is awaiting rehabilitation or long term facility placement withactive referrals in process José [...] something he normally likes to do at detention, then try to avail him of that [...] Disposition: SNF Team Pager( Coverage 27/01): # [phone] PCP: NAKIA Cifuentes [phone] Attestation: IPI Certification I certify that I [...] IPI criteria and is awaiting rehabilitation or long term facility placement withactive referrals in process José Miguel Maher MD 12/25/2017 * José Miguel Maher MD - 12/24/2017 12:52 PM EDT [facility] Medicine Attending Daily Progress Note Admit [...] something he normally likes to do at detention, then try to avail him of that [...] Disposition: SNF Team Pager( Coverage 27/01): # [phone] PCP: NAKIA Cifuentes [phone] Attestation: IPI Certification I certify that I [...] IPI criteria and is awaiting rehabilitation or long term facility placement withactive referrals in process José Miguel Maher MD 12/24/2017 * Tricia Gerber RN - 12/24/2017 11:13 AM EDT Case reviewed in eDH and with interdisciplinary team. Patient being reviewed for placement at [facility]. Placement is currently on hold due to lack of sitter. Spoke with detention director Lali [phone]. [facility] has been providing sitter for patient during daytime hours. She asked if they could withdraw sitter as [facility] is also providing a sitter at all times. Informed her of plan for transition to [facility]. She reports that [facility] is too far to send detention sitters up there. She stated that [facility] has made an agreement with [facility] for rehab there. Wall Attendant spoke with [facility] liaison who stated they have not accepted him as he is a [facility] denial. Left voice mail for Allison Mojica ([facility] Detention Md Pediatric Allergist) [phone]. Request call back with update of [facility] plans for placement. Case management will continue to follow and assist with discharge planning needs. Tricia Gerber RN Case Aircraft Communicator of Care Management [email or web address] Pager: [phone] * Tricia Gerber RN - 12/23/2017 3:48 PM EDT Case reviewed with interdisciplinary team. Patient continues to be medically ready. Plan is for possible transfer to [facility] Swing. Per note from [facility] today transfer is currently still on hold as we do not have designated sitters. Patient has required 1-2 sitters while in hospital. One is provided by [facility] and the other is provided by [facility]. Case management will continue to follow. Tricia Gebrer RN Case Aircraft Communicator of Care Management [email or web address] Pager: [phone] * José Miguel Maher MD - 12/23/2017 [...] something he normally likes to do at detention, then try to avail him of that [...] Disposition: SNF Team Pager( Coverage 27/01): # [phone] PCP: NAKIA Cifuentes [phone] Attestation: IPI Certification I certify that I am a D-H credentialed attending provider with admitting privileges and that the patient meets or has met medical necessity to require an inpatient IPI level of care meeting a minimumof two midnights or is on the [facility] inpatient only procedure list (status C) due to: the patient has met Inpatient IPI criteria and is awaiting rehabilitation or long term facility placement withactive referrals in process José [...] something he normally likes to do at detention, then try to avail him of that [...] Disposition: SNF Team Pager( Coverage 27/01): # [phone] PCP: NAKIA Cifuentes [phone] Attestation: IPI Certification I certify that I [...] IPI criteria and is awaiting rehabilitation or long term facility placement withactive referrals in process José Miguel Maher MD 12/22/2017 * Tricia Gerber RN - 12/22/2017 11:18 AM EDT Based on discussions with the multi-disciplinary healthcare team, the patient would benefit from SNF level of care at discharge. ?? I have met with the patient/medical sales representative to discuss discharge planning needs. I have provided the [facility], Office of Care Management letter from the Sales Representative Adding Machines pertaining to rehab referrals. I have also provided a letter describing our affiliations within the [facility] and educated them about their right to choose where referrals are placed. ?? I reviewed the different levels of rehab including SNF, swing, acute and LTAC with the patient/medical sales representative. ?? The patient/medical sales representative has been provided a list of facilities within their preferred geographic area. ?? I have requested that the patient/medical sales representative provide at least three choices for referral. ?? The patient/medical sales representative have requested referrals to: 1. [facility] ([facility]) [address] [place] [address] ?? [phone] ? Expected date of discharge: Medically ready Note routed to Shipping Receiving Clerk who will communicate referrals to facilities and [...] something he normally likes to do at detention, then try to avail him of that [...] Disposition: SNF Team Pager( Coverage 27/01): # [phone] PCP: NAKIA Cifuentes [phone] Attestation: IPI Certification I certify that I [...] IPI criteria and is awaiting rehabilitation or long term facility placement withactive referrals in process José [...] anemia due to acute blood loss 12/09/2017 [facility] Active Non-Hospital Problems Diagnosis ??? Insomnia ??? [...] something he normally likes to do at detention, then try to avail him of that [...] Disposition: SNF Team Pager(MD Coverage 27/01): # [phone] PCP: NAKIA Cifuentes [phone] Attestation: IPI Certification I certify that I [...] IPI criteria and is awaiting rehabilitation or long term facility placement withactive referrals in process José [...] something he normally likes to do at detention, then try to avail him of that [...] behaviors (rehabilitation) and inability to climb stairs (detention) - continue to try to make progress w/ measures described above and ongoing PT/OT Team Pager( Coverage 27/01): #[phone] PCP: NAKIA Cifuentes [phone] Attestation: IPI Certification I certify that I am a D-H credentialed attending provider with admitting privileges and that the patient meets or has met medical necessity to require an inpatient IPI level of care meeting a minimumof two midnights or is on the [facility] inpatient only procedure list (status C) due [...] something he normally likes to do at detention, then try to avail him of that [...] behaviors (rehabilitation) and inability to climb stairs (detention) - continue to try to make progress w/ measures described above and ongoing PT/OT Team Pager( Coverage 27/01): #[phone] PCP: NAKIA Cifuentes [phone] Attestation: IPI Certification I certify that I [...] be re-tasked at discharge - please page #[phone] prior to discharge so follow up can be arranged Kris Mcghee MD, PGY-1 Orthopaedic Surgery Pager #: [phone] No future appointments. Associated attestation - Amy [...] minutes Total timed interventions: 0 minutes Pager: [phone] [facility] Physical Therapy Rehabilitation Department [...] Gilliam MD - 12/17/2017 1:15 PM EDT [facility] Attending Daily Progress Note Admit [...] something he normally likes to do at detention, then try to avail him of that [...] behaviors (rehabilitation) and inability to climb stairs (detention) - continue to try to make progress w/ measures described above and ongoing PT/OT Team Pager( Coverage 27/01): #[phone] PCP: NAKIA Cifuentes [phone] Attestation: IPI Certification I certify that I [...] ?? OCM requested referrals to: ?? [address] [place] [address] ?? [phone] ? Expected date of discharge: Medically ready Note routed to Shipping Receiving Clerk who will communicate referrals to facilities and provide any required information. * Tricia Gerber RN - 12/16/2017 3:08 PM EDT Subha Tejeda [phone] (RN of [facility] who oversees the detention). She reports she is working on finding [...] continue to follow. Tricia Gerber RN Case Aircraft Communicator of Care Management Pager: [phone] * Fran Gilliam MD - 12/16/2017 11:40 [...] something he normally likes to do at detention, then try to avail him of that [...] behaviors (rehabilitation) and inability to climb stairs (detention) - continue to try to make progress w/ measures described above and ongoing PT/OT Team Pager( Coverage 27/01): #[phone] PCP: NAKIA Cifuentes [phone] Attestation: IPI Certification I certify that I am a D-H credentialed attending provider with admitting privileges and that the patient meets or has met medical necessity to require an inpatient IPI level of care meeting a minimumof two midnights or is on the [facility] inpatient only procedure list (status C) due [...] anemia due to acute blood loss 12/09/2017 [facility] Active Non-Hospital Problems Diagnosis ??? Insomnia ??? [...] something he normally likes to do at detention, then try to avail him of that [...] behaviors (rehabilitation) and inability to climb stairs (detention) - continue to try to make progress w/ measures described above and ongoing PT/OT Team Pager( Coverage 27/01): #[phone] PCP: NAKIA Cifuentes [phone] Attestation: IPI Certification I certify that I am a D-H credentialed attending provider with admitting privileges and that the patient meets or has met medical necessity to require an inpatient IPI level of care meeting a minimumof two midnights or is on the [facility] inpatient only procedure list (status C) due [...] something he normally likes to do at detention, then try to avail him of that [...] behaviors (rehabilitation) and inability to climb stairs (detention) - continue to try to make progress w/ measures described above and ongoing PT/OT Team Pager( Coverage 27/01): #[phone] PCP: NAKIA Cifuentes [phone] Attestation: IPI Certification I certify that I [...] anemia due to acute blood loss 12/09/2017 [facility] Active Non-Hospital Problems Diagnosis ??? Insomnia ??? [...] something he normally likes to do at detention, then try to avail him of that [...] behaviors (rehabilitation) and inability to climb stairs (detention) - continue to try to make progress w/ measures described above and ongoing PT/OT Team Pager( Coverage 27/01): #[phone] PCP: NAKIA Cifuentes [phone] Attestation: IPI Certification I certify that I [...] something he normally likes to do at detention, then try to avail him of that [...] behaviors (rehabilitation) and inability to climb stairs (detention) - continue to try to make progress w/ measures described above and ongoing PT, respectively Team Pager( Coverage 27/01): #[phone] PCP: NAKIA Cifuentes [phone] Attestation: IPI Certification I certify that I am a D-H credentialed attending provider with admitting privileges and that the patient meets or has met medical necessity to require an inpatient IPI level of care meeting a minimumof two midnights or is on the [facility] inpatient only procedure list (status C) due to: Acetabular fx and hypernatremia PCP: NAKIA Cifuentes [phone] DANAY MONGE MD 12/12/2017 * Danay Monge [...] something he normally likes to do at detention, then try to avail him of that [...] behaviors (rehabilitation) and inability to climb stairs (detention) - continue to try to make progress w/ measures described above and ongoing PT, respectively Team Pager( Coverage 27/01): #[phone] PCP: NAKIA Cifuentes [phone] Attestation: IPI Certification I certify that I am a D-H credentialed attending provider with admitting privileges and that the patient meets or has met medical necessity to require an inpatient IPI level of care meeting a minimumof two midnights or is on the [facility] inpatient only procedure list (status C) due to: Acetabular fx and hypernatremia PCP: NAKIA Cifuentes [phone] DANAY MONGE MD 12/11/2017 * Danay Monge [...] something he normally likes to do at detention, then try to avail him of that [...] endocrinology recommendations. -Decreased hydrocortisone from 25/04/ to 2010 per endocrine on 11/16 -Increased synthroid to [...] behaviors (rehabilitation) and inability to climb stairs (detention) - continue to try to make progress w/ measures described above and ongoing PT, respectively Team Pager( Coverage 27/01): #[phone] PCP: NAKIA Cifuentes [phone] Attestation: IPI Certification I certify that I am a D-H credentialed attending provider with admitting privileges and that the patient meets or has met medical necessity to require an inpatient IPI level of care meeting a minimumof two midnights or is on the [facility] inpatient only procedure list (status C) due to: Acetabular fx and hypernatremia PCP: NAKIA Cifuentes [phone] DANAY MONGE MD 12/10/2017 * Ren Sanchez [...] anemia due to acute blood loss 12/09/2017 [facility] Active Non-Hospital Problems Diagnosis ??? Insomnia ??? [...] something he normally likes to do at detention, then try to avail him of that [...] behaviors (rehabilitation) and inability to climb stairs (detention) - continue to try to make progress w/ measures described above and ongoing PT, respectively Team Pager( Coverage 27/01): #[phone] PCP: NAKIA Cifuentes [phone] Attestation: IPI Certification I certify that I am a D-H credentialed attending provider with admitting privileges and that the patient meets or has met medical necessity to require an inpatient IPI level of care meeting a minimumof two midnights or is on the [facility] inpatient only procedure list (status C) due to: Acetabular fx and hypernatremia PCP: NAKIA Cifuentes [phone] REN SANCHEZ III, MD 12/09/2017 * Danay [...] something he normally likes to do at detention, then try to avail him of that [...] behaviors (rehabilitation) and inability to climb stairs (detention) - continue to try to make progress w/ measures described above and ongoing PT, respectively Team Pager( Coverage 27/01): #[phone] PCP: NAKIA Cifuentes [phone] Attestation: IPI Certification I certify that I am a D-H credentialed attending provider with admitting privileges and that the patient meets or has met medical necessity to require an inpatient IPI level of care meeting a minimumof two midnights or is on the [facility] inpatient only procedure list (status C) due to: Acetabular fx and hypernatremia PCP: NAKIA Cifuentes [phone] DANAY MONGE MD 12/08/2017 * Danay Monge [...] something he normally likes to do at detention, then try to avail him of that [...] behaviors (rehabilitation) and inability to climb stairs (detention) - continue to try to make progress w/ measures described above and ongoing PT, respectively Team Pager( Coverage 27/01): #[phone] PCP: NAKIA Cifuentes [phone] Attestation: IPI Certification I certify that I am a D-H credentialed attending provider with admitting privileges and that the patient meets or has met medical necessity to require an inpatient IPI level of care meeting a minimumof two midnights or is on the [facility] inpatient only procedure list (status C) due to: Acetabular fx and hypernatremia PCP: NAKIA Cifuentes [phone] DANAY MONGE MD 12/07/2017 * Danay Monge MD - 12/06/2017 2:30 PM EDT [facility] Medicine Attending Daily Progress Note Admit [...] something he normally likes to do at detention, then try to avail him of that [...] behaviors (rehabilitation) and inability to climb stairs (detention) - continue to try to make progress w/ measures described above and ongoing PT, respectively Team Pager(MD Coverage 27/01): #[phone] PCP: NAKIA Cifuentes [phone] Attestation: IPI Certification I certify that I am a D-H credentialed attending provider with admitting privileges and that the patient meets or has met medical necessity to require an inpatient IPI level of care meeting a minimumof two midnights or is on the [facility] inpatient only procedure list (status C) due to: Acetabular fx and hypernatremia PCP: NAKIA Cifuentes [phone] DANAY MONGE MD 12/06/2017 * Constantino Courtney [...] something he normally likes to do at detention, then try to avail him of that [...] behaviors (rehabilitation) and inability to climb stairs (detention) - continue to try to make progress w/ measures described above and ongoing PT, respectively Team Pager( Coverage 27/01): #[phone] PCP: NAKIA Cifuentes [phone] Attestation: IPI Certification I certify that I am a D-H credentialed attending provider with admitting privileges and that the patient meets or has met medical necessity to require an inpatient IPI level of care meeting a minimumof two midnights or is on the [facility] inpatient only procedure list (status C) due [...] something he normally likes to do at detention, then try to avail him of that [...] something he normally likes to do at detention, then try to avail him of that [...] behaviors (rehabilitation) and inability to climb stairs (detention) - continue to try to make progress w/ measures described above and ongoing PT, respectively Team Pager( Coverage 27/01): #[phone] PCP: NAKIA Cifuentes [phone] Attestation: IPI Certification I certify that I am a D-H credentialed attending provider with admitting privileges and that the patient meets or has met medical necessity to require an inpatient IPI level of care meeting a minimumof two midnights or is on the [facility] inpatient only procedure list (status C) due to: Acetabular fx and hypernatremia RFAN GILLIAM MD 12/05/2017 * Fran Gilliam MD [...] something he normally likes to do at detention, then try to avail him of that [...] something he normally likes to do at detention, then try to avail him of that [...] behaviors (rehabilitation) and inability to climb stairs (detention) - continue to try to make progress w/ measures described above and ongoing PT, respectively Team Pager(MD Coverage 27/01): #[phone] PCP: NAKIA Cifuentes [phone] Attestation: IPI Certification I certify that I am a D-H credentialed attending provider with admitting privileges and that the patient meets or has met medical necessity to require an inpatient IPI level of care meeting a minimumof two midnights or is on the [facility] inpatient only procedure list (status C) due to: Acetabular fx and hypernatremia FRAN GILLIAM MD 12/03/2017 * Yadi Mccaulye MD - 12/03/2017 2:25 PM EDT ENDOCRINOLOGY FOLLOW UP INPATIENT NOTE [facility] Name: Miguel Angel Mason Date of Consultation: [...] Procedure Laterality Date ??? PRO OPEN ORACLE PROGRAMMER FIX ACETABULAR FX Left 09/04/2017 @OPEN TREATMENT, ACETABULAR FX (WRVU 25.41) performed by Amy Lance MD at [facility] MAIN OR Allergies Allergen Reactions [...] fluid restriction to avoid hyponatremia/over correction --- [place] sodium level 138-145. --- Continue to try [...] Lindsey Walsh, Endocrinology, Diabetes and Metabolism Fellow 12/03/2017 2:26 [...] something he normally likes to do at detention, then try to avail him of that [...] something he normally likes to do at detention, then try to avail him of that [...] behaviors (rehabilitation) and inability to climb stairs (detention) - continue to try to make progress w/ measures described above and ongoing PT, respectively Team Pager( Coverage 27/01): #[phone] PCP: NAKIA Cifuentes [phone] Attestation: IPI Certification I certify that I [...] not included. ENDOCRINOLOGY FOLLOW UP INPATIENT NOTE [facility] Name: Miguel Angel Mason Date of Consultation: [...] Procedure Laterality Date ??? PRO OPEN ORACLE PROGRAMMER FIX ACETABULAR FX Left 09/04/2017 @OPEN TREATMENT, ACETABULAR FX (WRVU 25.41) performed by Amy Lance MD at [facility] MAIN OR Allergies Allergen Reactions [...] 0.80 Last Ca, Mg, Phos Recent Labs 12/01/172142 CALCIUM 8.6 IMAGING: None new Assessment: 27 [...] something he normally likes to do at detention, then try to avail him of that [...] something he normally likes to do at detention, then try to avail him of that [...] behaviors (rehabilitation) and inability to climb stairs (detention) - continue to try to make progress w/ measures described above and ongoing PT, respectively Team Pager( Coverage 27/01): #[phone] PCP: NAKIA Cifuentes [phone] Attestation: IPI Certification I certify that I am a D-H credentialed attending provider with admitting privileges and that the patient meets or has met medical necessity to require an inpatient IPI level of care meeting a minimumof two midnights or is on the [facility] inpatient only procedure list (status C) due [...] something he normally likes to do at detention, then try to avail him of that [...] something he normally likes to do at detention, then try to avail him of that [...] behaviors (rehabilitation) and inability to climb stairs (detention) - continue to try to make progress w/ measures described above and ongoing PT, respectively Team Pager( Coverage 27/01): #[phone] PCP: NAKIA Cifuentes [phone] Attestation: IPI Certification I certify that I [...] something he normally likes to do at detention,then try to avail him of that here. [...] something he normally likes to do at detention, then try to avail him of that -Check bladder scan prn -Bowel regimen -net bed for safety IV access: None Tubes/Drains: None DVT PPX: None as moving alot Anticipated Disposition: Discharge limited by behaviors (rehabilitation) and inability to climb stairs (detention) - continue to try to make progress w/ measures described above and ongoing PT, respectively Team Pager( Coverage 27/01): #[phone] PCP: NAKIA Cifuentes [phone] Attestation: IPI Certification I certify that I am a D-H credentialed attending provider with admitting privileges and that the patient meets or has met medical necessity to require an inpatient IPI level of care meeting a minimumof two midnights or is on the [facility] inpatient only procedure list (status C) due [...] acetabulum fracture on 09/04/17. He lives in detention setting on 2nd level and unable to [...] far. Left messages today for: Lc Childress ([facility] Small Animal Veterinarian) [phone], Subhadoris Tejeda [phone] (RN of [facility] oversees the detention), and patients sister/guardian, Bettina Mason [phone]. To further discuss discharge options. Case management will continue to follow and assist with discharge planning needs. Tricia Gerber tower excavator operator Office of Care Management [email or web address] Pager: [phone] * Debbie Keller DT - 11/28/2017 3:33 [...] Assessment: Patient seen for nutrition follow up. Wall Attendant able to speak with nursing on pt's [...] Procedure Laterality Date ??? PRO OPEN ORACLE PROGRAMMER FIX ACETABULAR FX Left 09/04/2017 @OPEN TREATMENT, ACETABULAR FX (WRVU 25.41) performed by Amy Lance MD at [facility] MAIN OR No family history [...] MD Endocrinology, Diabetes and Metabolism Fellow Pager #[phone] 11/28/2017 I reviewed this patient with Dr Nick . I reviewed the santos portions of the history and physical exam, and reviewed pertinent lab data. I was involved in all medical decision making and agree with this plan. * Ren Sanchez III, MD - 11/28/2017 12:17 PM EDT [facility] Attending Daily Progress Note Admit [...] -change methocarbamol to PRN -Discharge limited to detention with behaviors (rehabilitation) and inability to climb stairs (detention) 2. Panhypopituitarism including DI: Stable -Due to [...] but discontinued as felt pain was primary hook up driver - but now getting standing opiates and remains agitated. Continue to reassess. -Check bladder scan prn -Bowel regimen -Trying a net bed for safety - dc if worsening agitation IV access: None Tubes/Drains: None DVT PPX: None as moving alot Anticipated Disposition: Pending improved mobility and weight bearing status Team Pager( Coverage 27/01): #[phone] PCP: NAKIA Cifuentes [phone] Attestation: IPI Certification I certify that I [...] a more appropriate time. Ren MAYA Pager: [phone] * Celine Power MD - 11/28/2017 6:03 [...] be re-tasked at discharge - please page #[phone] prior to discharge so follow up can be arranged Celine Power MD, PGY-1 Orthopaedic Surgery Pager #: [phone] No future appointments. Associated attestation - Amy [...] -change methocarbamol to PRN -Discharge limited to detention with behaviors (rehabilitation) and inability to climb stairs (detention) 2. Panhypopituitarism including DI: Stable -Due to [...] but discontinued as felt pain was primary hook up driver - but now getting standing opiates and remains agitated. Continue to reassess. -Check bladder scan prn -Bowel regimen -Trying a net bed for safety - dc if worsening agitation IV access: None Tubes/Drains: None DVT PPX: None as moving alot Anticipated Disposition: Pending improved mobility and weight bearing status Team Pager(MD Coverage 27/01): #[phone] PCP: NAKIA Cifuentes [phone] Attestation: IPI Certification I certify that I am a D-H credentialed attending provider with admitting privileges and that the patient meets or has met medical necessity to require an inpatient IPI level of care meeting a minimumof two midnights or is on the [facility] inpatient only procedure list (status C) due [...] expressing himself -d/c methocarbamol -Discharge limited to detention with behaviors (rehabilitation) and inability to climb stairs (detention) 2. Panhypopituitarism including DI: Stable -Due to [...] but discontinued as felt pain was primary hook up driver - but now getting standing opiates and remains agitated. Continue to reassess. -Check bladder scan prn -Bowel regimen -Trying a net bed for safety - dc if worsening agitation IV access: None Tubes/Drains: None DVT PPX: None as moving alot Anticipated Disposition: Pending improved mobility and weight bearing status Team Pager(MD Coverage 27/01): #[phone] PCP: NAKIA Cifuentes [phone] Attestation: IPI Certification I certify that I [...] gm TID on 11/24) -Discharge limited to detention with behaviors (rehabilitation) and inability to climb stairs (detention) 2. Panhypopituitarism including DI: Stable -Due to [...] but discontinued as felt pain was primary hook up driver - but now getting standing opiates and remains agitated. Continue to reassess. -Check bladder scan prn -Bowel regimen -Trying a net bed for safety - dc if worsening agitation IV access: None Tubes/Drains: None DVT PPX: Lovenox Anticipated Disposition: Pending improved mobility and weight bearing status Team Pager( Coverage 27/01): #[phone] PCP: NAKIA Cifuentes [phone] Attestation: IPI Certification I certify that I [...] RN - 11/25/2017 4:17 AM EDT 11/24/17-11/25/17 8831-0647 Patient is not wearing masimo due to [...] to suggest infection. Treating pain as possible hook up driver though continue to assess as has [...] decrease over coming week -Discharge limited to detention with behaviors (rehabilitation) and inability to climb stairs (detention) 2. Panhypopituitarism including DI: Stable -Due to [...] but discontinued as felt pain was primary hook up driver - but now getting standing opiates and remains agitated. Continue to reassess. -Check bladder scan prn -Bowel regimen -Trying a net bed for safety - dc if worsening agitation IV access: None Tubes/Drains: None DVT PPX: Lovenox Anticipated Disposition: Pending improved mobility and weight bearing status Team Pager( Coverage 27/01): #[phone] PCP: NAKIA Cifuentes [phone] Attestation: IPI Certification I certify that I am a D-H credentialed attending provider with admitting privileges and that the patient meets or has met medical necessity to require an inpatient IPI level of care meeting a minimumof two midnights or is on the [facility] inpatient only procedure list (status C) due to: Acetabular fx and hypernatremia REN SANCHEZ III, MD 11/24/2017 * Shruti Lozoya RN - 11/24/2017 6:09 AM EDT 11/23/17-11/24/17 [id number] Patient not wearing masimo due to safety [...] to suggest infection. Treating pain as possible hook up driver though continue to assess as has [...] decrease over coming week -Discharge limited to detention with behaviors (rehabilitation) and inability to climb stairs (detention) 2. Panhypopituitarism including DI: Stable -Due to [...] but discontinued as felt pain was primary hook up driver - but now getting standing opiates and remains agitated. Continue to reassess. -Check bladder scan prn -Bowel regimen -Trying a net bed for safety - dc if worsening agitation IV access: None Tubes/Drains: None DVT PPX: Lovenox Anticipated Disposition: Pending improved mobility and weight bearing status Team Pager( Coverage 27/01): #[phone] PCP: NAKIA Cifuentes [phone] Attestation: IPI Certification I certify that I am a D-H credentialed attending provider with admitting privileges and that the patient meets or has met medical necessity to require an inpatient IPI level of care meeting a minimumof two midnights or is on the [facility] inpatient only procedure list (status C) due [...] to suggest infection. Treating pain as possible hook up driver though continue to assess as has [...] TID for muscle spasms. -Discharge limited to detention with behaviors (rehabilitation) and inability to climb stairs (detention) 2. Panhypopituitarism including DI: Stable -Due to [...] but discontinued as felt pain was primary hook up driver - but now getting standing opiates and remains agitated. Continue to reassess. -Check bladder scan prn -Bowel regimen -Trying a net bed for safety - dc if worsening agitation IV access: None Tubes/Drains: None DVT PPX: Lovenox Anticipated Disposition: Pending improved mobility and weight bearing status Team Pager( Coverage 27/01): #[phone] PCP: NAKIA Cifuentes [phone] Attestation: IPI Certification I certify that I am a D-H credentialed attending provider with admitting privileges and that the patient meets or has met medical necessity to require an inpatient IPI level of care meeting a minimumof two midnights or is on the [facility] inpatient only procedure list (status C) due [...] to suggest infection. Treating pain as possible hook up driver thoughcontinue to assess as has been [...] PO TID for musclespasms. -Discharge limited to detention with behaviors (rehabilitation) and inability to climb stairs (detention) 2. Panhypopituitarism including DI: -Due to prior [...] but discontinued as felt pain was primary hook up driver - but now getting standing opiates and remains agitated. Continue to reassess. -Check bladder scan prn -Bowel regimen -Trying a net bed today for safety - dc if worsening agitation IV access: None Tubes/Drains: None DVT PPX: Lovenox Anticipated Disposition: Pending improved mobility and weight bearing status Team Pager( Coverage 27/01): #[phone] PCP: NAKIA Cifuentes [phone] Attestation: IPI Certification I certify that I [...] devices at all times. Celine Power MD #[id number] Associated attestation - Amy Lance MD - [...] to suggest infection. Treating pain as possible hook up driver though continue to assess as has [...] andget back to us -Discharge limited to detention with behaviors (rehabilitation) and inability to climb stairs (detention) 2. Panhypopituitarism including DI: -Due to prior [...] but discontinued as felt pain was primary hook up driver - but now getting standing opiates and remains agitated. Continue to reassess. -Check bladder scan prn -Bowel regimen -Trying a net bed today for safety - dc if worsening agitation IV access: None Tubes/Drains: None DVT PPX: Lovenox Anticipated Disposition: Pending improved mobility and weight bearing status Team Pager( Coverage 27/01): #[phone] PCP: NAKIA Cifuentes [phone] Attestation: IPI Certification I certify that I am a D-H credentialed attending provider with admitting privileges and that the patient meets or has met medical necessity to require an inpatient IPI level of care meeting a minimumof two midnights or is on the CMS inpatient only procedure list (status C) due to: Acetabular fx and hypernatremia Crista Aguilar MD 11/20/2017 * Louis Doran, COURT OF APPEALS JUDGE - 11/20/2017 1:32 PM EDT Physical Therapy Treatment Note Attempted to see pt twice today however pt was agitated and not following directions well. Will follow up with pt at a later date. Pager: [phone] L[place]IS DORAN, ROMEL Physical Therapy Rehabilitation Department [...] at a later time. Ren MAYA Pager: [phone] * Crista Aguilar MD - 11/19/2017 10:43 [...] to suggest infection. Treating pain as possible hook up driver though continue to assess as has [...] get back to us -Discharge limited to detention with behaviors (rehabilitation) and inability to climb stairs (detention) 2. Panhypopituitarism including DI: -Due to prior [...] but discontinued as felt pain was primary hook up driver - but now getting standing opiates and remains agitated. Continue to reassess. -Check bladder scan prn -Bowel regimen IV access: None Tubes/Drains: None DVT PPX: Lovenox Anticipated Disposition: Pending improved mobility Team Pager( Coverage 27/01): #[phone] PCP: NAKIA Cifuentes [phone] Attestation: IPI Certification I certify that I am a D-H credentialed attending provider with admitting privileges and that the patient meets or has met medical necessity to require an inpatient IPI level of care meeting a minimumof two midnights or is on the [facility] inpatient only procedure list (status C) due to: Acetabular fx and hypernatremia Crista Aguilar MD 11/19/2017 * Crista Aguilar MD - 11/18/2017 4:36 PM EDT [facility] Medicine Attending Daily Progress Note Admit [...] on my visit today. Spoke with caregiver, POWER PLANT ENGINEER and having a calmer day. No reported [...] to suggest infection. Treating pain as possible hook up driver though continue to assess as has [...] ortho for mobility recs, -Discharge limited to detention with behaviors (rehabilitation) and inability to climb stairs (detention) 2. Panhypopituitarism including DI: -Due to prior [...] but discontinued as felt pain was primary hook up driver - but now getting standing opiates and remains agitated. Continue to reassess. -Check bladder scan prn -Bowel regimen IV access: None Tubes/Drains: None DVT PPX: Lovenox Anticipated Disposition: Pending improved mobility Team Pager( Coverage 27/01): #[phone] PCP: NAKIA Cifuentes [phone] Attestation: IPI Certification I certify that I am a D-H credentialed attending provider with admitting privileges and that the patient meets or has met medical necessity to require an inpatient IPI level of care meeting a minimumof two midnights or is on the [facility] inpatient only procedure list (status C) due [...] discussed with Dr Mccauley and Primary Team Felecai Oneil MD PGY-5 Endocrinology Fellow 11/17/2017 I [...] Lytes Recent Labs 11/17/17 0909 11/17/17 0511 11/16/171951 NA 139 138 142 K 3.4* 3.4* [...] to suggest infection. Treating pain as possible hook up driver though continue to assess as has [...] behaviors (rehabilitation) and inability to climb stairs (detention). 2. Panhypopituitarism including DI: -Due to prior [...] but discontinued as felt pain was primary hook up driver - but now getting significant opiates and remains agitated. Continue to reassess. -Check bladder scan prn -Bowel regimen IV access: None Tubes/Drains: None DVT PPX: Lovenox Anticipated Disposition: Pending improved mobility Team Pager( Coverage 27/01): #[phone] PCP: NAKIA Cifuentes [phone] Attestation: IPI Certification I certify that I am a D-H credentialed attending provider with admitting privileges and that the patient meets or has met medical necessity to require an inpatient IPI level of care meeting a minimumof two midnights or is on the [facility] inpatient only procedure list (status C) due to: Acetabular fx and hypernatremia Crista Aguilar MD 11/17/2017 Addendum: Called for patient falling from bed. Apparently was on edge of bed, lunged forward and fell on leftside. May have hit head. No focal bruising, swelling on scalp. Accounting Advisory Services Manager 5/5, strength in legs observed symmetric. Right [...] to suggest infection. Treating pain as possible hook up driver though continue to assess as has [...] behaviors (rehabilitation) and inability to climb stairs (detention). -Prior attending discussed with orthopedics due to [...] but discontinued as felt pain was primary hook up driver - but now getting significant opiates and remains agitated. Continue to reassess. -Check bladder scan -Bowel regimen IV access: None Tubes/Drains: None DVT PPX: Lovenox Anticipated Disposition: Pending improved mobility Team Pager( Coverage 27/01): #[phone] PCP: NAKIA Cifuentes [phone] Attestation: IPI Certification I certify that I [...] 49 mmol/L U Chloride 75 mmol/L Specific Frederick, Urine Result Value Ref Range Spec Frederick UA 1.025 1.002 - 1.030 Assessment: 27 [...] down on his maintenance hydrocortisone dose from 20//10 to 20mg po AM and 10mg po [...] them as documented. Neo Coleman DO, MS Mining Captainequipment operation instructor Section of Endocrinology [facility] * Crista Aguilar MD - 11/15/2017 10:30 [...] Date Resolved No resolved problems to display. [facility] Active Non-Hospital Problems Diagnosis ??? Insomnia ??? [...] that amount. They record intake at his detention. Physical Exam Vitals Range last 24 hrs [...] behaviors (rehabilitation) and inability to climb stairs (detention). -Prior attending discussed with orthopedics due to [...] Pending improved mobility Team Pager( Coverage 27/01): #[phone] PCP: NAKIA Cifuentes [phone] Attestation: IPI Certification I certify that I [...] Morin DO - 11/14/2017 2:52 PM EDT [facility] MEDICINE ATTENDING DAILY PROGRESS NOTE Patient: Miguel Angel Mason, 1990, [id number] Physician: Yossi Morin DO, Pager: [phone], [facility] Medicine Service Admit Date: 09/02/2017 Date [...] behaviors (rehabilitation) and inability to climb stairs (detention). Discussed with orthopedics due to increasing pain [...] to look for alternative placement in a detention. IPI Certification I certify that I am a D-H credentialed attending provider with admitting privileges and that the patient meets or has met medical necessity to require an inpatient IPI level of care meeting a minimumof two midnights or is on the [facility] inpatient only procedure list (status C) due to: the patient has met Inpatient IPI criteria and is awaiting rehabilitation or long term facility placement withactive referrals in process MEDICATIONS: [...] reasonable to consider XR. Celine Power MD #[id number] * Yossi Morin DO - 11/13/2017 1:36 PM EDT [facility] MEDICINE ATTENDING DAILY PROGRESS NOTE Patient: Miguel Angel Mason, 1990, [id number] Physician: Yossi Morin DO, Pager: [phone], [facility] Medicine Service Admit Date: 09/02/2017 Date [...] behaviors (rehabilitation) and inability to climb stairs (detention). 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 IPI Certification I certify that I am a D-H credentialed attending provider with admitting privileges and that the patient meets or has met medical necessity to require an inpatient IPI level of care meeting a minimumof two midnights or is on the [facility] inpatient only procedure list (status C) due to: the patient has met Inpatient IPI criteria and is awaiting rehabilitation or long term facility placement withactive referrals in process MEDICATIONS: [...] Assessment: Patient seen for nutrition follow up. Wall Attendant able to speak with nursing on pt's [...] be re-tasked at discharge - please page #[phone] prior to discharge so follow up can be arranged. If remains inpatient, will plan on repeat imaging ~11/18 to assess interval healing (will be almost 11 weeks form operation) Celine Power MD, PGY-1 Orthopaedic Surgery Pager #: [phone] Future Appointments Date Time Provider Department Center 11/21/2017 10:45 AM [facility] DX ROOM 2 Xray [facility] 11/21/2017 11:40 AM Amy Lance MD [facility] 3A [facility] Associated attestation - Amy Lance MD - 11/15/2017 7:05 AM EDT Patient seen and examined. Agree with resident note. Plan for 10 week follow-up this week. Mandy Lance MD Department of Orthopaedics 11/15/17 * Yossi Morin DO - 11/12/2017 1:10 PM EDT [facility] MEDICINE ATTENDING DAILY PROGRESS NOTE Patient: Miguel Angel Mason, 1990, [id number] Physician: Yossi Morin DO, Pager: [phone], Hospital Medicine Service Admit Date: 09/02/2017 Date [...] CO2 26 27 23 BUN 18 18 CREATININE 0.87 Not Perf 1.01 [...] behaviors (rehabilitation) and inability to climb stairs (detention). 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 IPI Certification I certify that I am a D-H credentialed attending provider with admitting privileges and that the patient meets or has met medical necessity to require an inpatient IPI level of care meeting a minimumof two midnights or is on the [facility] inpatient only procedure list (status C) due to: the patient has met Inpatient IPI criteria and is awaiting rehabilitation or long term facility placement withactive referrals in process MEDICATIONS: [...] 1 drop TID PRN Yossi Morin DO 4830 Hospitalist 11/12/2017 1:10 PM * Noel aMrtinez OTA - 11/12/2017 11:44 AM EDT Occupational Therapy note: Pt not appropriate for skilled OT at this time due to agitation. Will follow up when patient is more appropriate. Noel HORNE Pager:[phone] Occupational Therapy * Tricia Gerber RN - 11/11/2017 4:21 PM EDT Case reviewed in eDH and with interdisciplinary team. Per MD patient is medically ready for discharge. Case management has been working on discharge plan. Referrals have been submitted to SNF's throughout [place]. Left alg for both Lc Childress [phone] and Subha Tejeda [phone]. To further discuss discharge options. Tricia Gerber RN Case Aircraft Communicator of Care Management [email or web address] Pager: [phone] * Yossi Morin DO - 11/11/2017 3:18 PM EDT HOSPITAL MEDICINE ATTENDING DAILY PROGRESS NOTE Patient: Miguel Angel Pop Isabella, 1990, [id number] Physician: Yossi Morin DO, Pager: [phone], [facility] Medicine Service Admit Date: 09/02/2017 Date [...] behaviors (rehabilitation) and inability to climb stairs (detention). 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 IPI Certification I certify that I am a D-H credentialed attending provider with admitting privileges and that the patient meets or has met medical necessity to require an inpatient IPI level of care meeting a minimumof two midnights or is on the [facility] inpatient only procedure list (status C) due to: the patient has met Inpatient IPI criteria and is awaiting rehabilitation or long term facility placement withactive referrals in process MEDICATIONS: [...] 1 drop TID PRN Yossi Morin DO 4089 Hospitalist 11/11/2017 3:18 PM * Yossi Morin DO - 11/10/2017 2:21 PM EDT HOSPITAL MEDICINE ATTENDING DAILY PROGRESS NOTE Patient: Miguel Angel Mason, 1990, [id number] Physician: Yossi Morin DO, Pager: [phone], Hospital Medicine Service Admit Date: 09/02/2017 Date [...] behaviors (rehabilitation) and inability to climb stairs (detention). 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 IPI Certification I certify that I am a D-H credentialed attending provider with admitting privileges and that the patient meets or has met medical necessity to require an inpatient IPI level of care meeting a minimumof two midnights or is on the [facility] inpatient only procedure list (status C) due to: the patient has met Inpatient IPI criteria and is awaiting rehabilitation or long term facility placement withactive referrals in process MEDICATIONS: [...] 4:06 PM EDT Pt being transferred to [facility]. Report given to HEATHER. Jeannette Don RN * Yossi Morin DO - 11/09/2017 12:18 PM EDT [facility] MEDICINE ATTENDING DAILY PROGRESS NOTE Patient: Miguel Angel Mason, 1990, [id number] Physician: Yossi Morin DO, Pager: [phone], [facility] Medicine Service Admit Date: 09/02/2017 Date [...] minimumof two midnights or is on the [facility] inpatient only procedure list (status C) due to: the patient has met Inpatient IPI criteria and is awaiting rehabilitation or long term facility placement withactive referrals in process MEDICATIONS: [...] 1 drop TID PRN Yossi Morin DO 6085 Hospitalist 11/09/2017 12:20 PM * Yossi Morin DO - 11/08/2017 2:47 PM EDT [facility] MEDICINE ATTENDING DAILY PROGRESS NOTE Patient: Miguel Angel Mason, 1990, [id number] Physician: Yossi Morin DO, Pager: [phone], [facility] Medicine Service Admit Date: 09/02/2017 Date [...] minimumof two midnights or is on the [facility] inpatient only procedure list (status C) due to: the patient has met Inpatient IPI criteria and is awaiting rehabilitation or long term facility placement withactive referrals in process MEDICATIONS: [...] IPI criteria and is awaiting rehabilitation or long term facility placement withactive referrals in process Team Pager( Coverage 27/01): #[phone] PCP: NAKIA Cifuentes [phone] Isabel Donis MD 11/07/2017 * Isabel Donis [...] minimumof two midnights or is on the [facility] inpatient only procedure list (status C) due to: the patient has met Inpatient IPI criteria and is awaiting rehabilitation or long term facility placement withactive referrals in process Team Pager( Coverage 27/01): #[phone] PCP: NAKIA Cifuentes [phone] Isabel Donis MD 11/06/2017 * Isabel Donis [...] IPI criteria and is awaiting rehabilitation or long term facility placement withactive referrals in process Team Pager( Coverage 27/01): #[phone] PCP: NAKIA Cifuentes [phone] Isabel Donis MD 11/05/2017 * Isabel Donis [...] minimumof two midnights or is on the [facility] inpatient only procedure list (status C) due to: the patient has met Inpatient IPI criteria and is awaiting rehabilitation or long term facility placement withactive referrals in process Team Pager(MD Coverage 27/01): #[phone] PCP: NAKIA Cifuentes [phone] Isabel Donis MD 11/04/2017 * Celine Power [...] be re-tasked at discharge - please page #[phone] prior to discharge so follow up can be arranged. If remains inpatient, will plan on repeat imaging about 11/18 to assess interval healing Celine Power MD, PGY-1 Orthopaedic Surgery Pager #: [phone] Future Appointments Date Time Provider Department Center 11/21/2017 10:45 AM [facility] DX ROOM 2 Xray [facility] 11/21/2017 11:40 AM Amy Lance MD [facility] Associated attestation - Amy Lance MD [...] Status - Unable to obtain. Non verbal. OTNIVEROS. Studies reviewed in eDH. Remarkable for the [...] of the mandible. Assessment: Mr. Miguel Angel Maosn is an unfortunate 27 year old man [...] minimumof two midnights or is on the [facility] inpatient only procedure list (status C) due to: the patient has met Inpatient IPI criteria and is awaiting rehabilitation or long term facility placement withactive referrals in process Team Pager(MD Coverage 27/01): #[phone] PCP: NAKIA Cifuentes [phone] Isabel Donis MD 11/03/2017 * Isabel Donis [...] minimumof two midnights or is on the [facility] inpatient only procedure list (status C) due to: the patient has met Inpatient IPI criteria and is awaiting rehabilitation or long term facility placement withactive referrals in process Team Pager( Coverage 27/01): #[phone] PCP: NAKIA Cifuentes [phone] Isabel Donis MD 11/02/2017 * Isabel Donis [...] IPI criteria and is awaiting rehabilitation or long term facility placement withactive referrals in process Team Pager( Coverage 27/01): #[phone] PCP: NAKIA Cifuentes [phone] Isabel Donis MD 11/01/2017 * Samson Alvarez - 10/31/2017 2:55 PM EDT [employer] Detailer Encounter Note Patient Name: Miguel Angel Mason : [id number] MR#: [id number] Admit Date: 09/02/2017 9:23 PM Hospital Day 59 days Narrative: Visited to introduce and assess acceptance of [employer] services. Assessment: Patient coping positively with stresses of illness/hospitalization at this time. Mr. Huggins was there and says that Miguel Angel is slowly feeling better. 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 Intervention and Outcome:provided listening presence to care provider. [employer] services accepted.Conversation to build trusting relationship.Provided pastoral presence. Follow-up: yes Time in Direct Care:15 Mins Samson Alvarez 10/31/2017 * Ren Walters OTA - 10/31/2017 11:30 AM EDT Attempted to see pt this morning, pt currently working with PT. Will attempt again at a later time. Ren MAYA Pager: [phone] * Dillon Koch MD - 10/31/2017 7:59 [...] IPI criteria and is awaiting rehabilitation or long term facility placement withactive referrals in process Team Pager( Coverage 27/01): #[phone] PCP: NAKIA Cifuentes [phone] DILLON KOCH MD 10/31/2017 * Krishna, Debbie L, DT - 10/30/2017 2:47 PM [...] Assessment: Patient seen for nutrition follow up. Wall Attendant able to speak with pt's caregiver (Soila) on pt's nutritional care. Soila reported a good appetite without difficulty chewing or swallowing. He is tolerating current diet without nausea or vomiting. Soila stated pt consumed oj, chocolate milk, 1/2 fruit cup (still working on), home fries, 1/4 amharic toast, sausage, and white toast. Soila stated, he was really tired this morning. He didn't sleep well last night. Nursing notes [id number]% PO intake on 10/29, 10/28, + 10/27. [...] at a more appropriate time. Ren MAYA Pager:[phone] * Dillon Koch MD - 10/30/2017 7:58 [...] Intake/Output Summary (Last 24 hours) at 10/30/17 1731 Last data filed at 10/30/17 0647 Gross [...] IPI criteria and is awaiting rehabilitation or long term facility placement withactive referrals in process Team Pager( Coverage 27/01): #[phone] PCP: NAKIA Cifuentes [phone] DILLON KOCH MD 10/30/2017 * Dillon Koch [...] minimumof two midnights or is on the [facility] inpatient only procedure list (status C) due to: the patient has met Inpatient IPI criteria and is awaiting rehabilitation or long term facility placement withactive referrals in process Team Pager( Coverage 27/01): #[phone] PCP: NAKIA Cifuentes [phone] DILLON KOCH MD 10/29/2017 * Dillon Koch [...] IPI criteria and is awaiting rehabilitation or long term facility placement withactive referrals in process Team Pager(MD Coverage 27/01): #[phone] PCP: NAKIA Cifuentes [phone] DILLON KOCH MD 10/28/2017 * Skyla Aranda [...] be re-tasked at discharge - please page #[phone] prior to discharge so follow up can be arranged. Skyla Aranda MD, PGY-1 Orthopaedic Surgery Pager #: [phone] Future Appointments Date Time Provider Department Center 11/21/2017 10:45 AM [facility] DX ROOM 2 Xray Leb [...] Date Resolved No resolved problems to display. [facility] Active Non-Hospital Problems Diagnosis ??? Insomnia ??? [...] lovenox Anticipated Disposition: unclear, CM working with DE IPI Certification I certify that I am a D-H credentialed attending provider with admitting privileges and that the patient meets or has met medical necessity to require an inpatient IPI level of care meeting a minimumof two midnights or is on the [facility] inpatient only procedure list (status C) due to: the patient has met Inpatient IPI criteria and is awaiting rehabilitation or long term facility placement withactive referrals in process Team Pager(MD Coverage 27/01): #[phone] PCP: NAKIA Cifuentes [phone] DILLON KOCH MD 10/27/2017 * Dillon Koch [...] minimumof two midnights or is on the [facility] inpatient only procedure list (status C) due to: the patient has met Inpatient IPI criteria and is awaiting rehabilitation or long term facility placement withactive referrals in process Team Pager( Coverage 27/01): #[phone] PCP: NAKIA Cifuentes [phone] DILLON KOCH MD 10/26/2017 * Jevon Menendez, RN - 10/25/2017 4:12 PM EDT 3W Clinical Nurse Molder Machine Tender spoke with Lali Walker, subwarehouse supervisor, this afternoon. Lali expressed concern over not having a caregiver with Miguel Angel as originally intended today and the homes ability to continue to send caregivers to the hospital if asked to leave. Explained to Lali that [employer] agitation and redirect-ability were significantly different than recent prior days. After discussion with airplane pilot supervisor, it was agreed that today, and POWER PLANT ENGINEER sitter from [facility] would continue to sit with Robinbut we [...] caregivers. Caregiver Vanessa states, WellI'll call my airplane pilot supervisor. Continues to remain at bedside for an additional 15 minutes before leaving. Patient immediately settles with an POWER PLANT ENGINEER at bedside engaging him in activities. MD [...] to be helpful, safe, and supportive. [facility] unit receptionist briefed. * Dillon Koch MD - 10/25/2017 [...] IPI criteria and is awaiting rehabilitation or long term facility placement withactive referrals in process Team Pager( Coverage 27/01): #[phone] PCP: NAKIA Cifuentes [phone] DILLON KOCH MD 10/25/2017 * Rosie Marinelli, [...] IPI criteria and is awaiting rehabilitation or long term facility placement withactive referrals in process Team Pager( Coverage 27/01): #[phone] PCP: NAKIA Cifuentes [phone] sIabel Donis MD 10/24/2017 * Isabel Donis MD [...] IPI criteria and is awaiting rehabilitation or long term facility placement withactive referrals in process Team Pager( Coverage 27/01): #[phone] PCP: NAKIA Cifuentes [phone] Isabel Donis MD 10/23/2017 * Debbie Keller, [...] Patient pt seen for nutrition follow up. Wall Attendant able to speak with nursing on pt's [...] daily. Will continue to send. Please call [phone] should request be made to modify snack. [...] asked that I send a referral to [facility]. I let her know that he had [place] Medicaid and she is familiar with people who work there and [place] Medicaid. Will ask water resource agent to refer to [facility]. * Tez Tate MSW - 10/23/2017 11:12 [...] minimumof two midnights or is on the [facility] inpatient only procedure list (status C) due to: the patient has met Inpatient IPI criteria and is awaiting rehabilitation or long term facility placement withactive referrals in process Team Pager( Coverage 27/01): #[phone] PCP: NAKIA Cifuentes [phone] Isabel Donis MD 10/22/2017 * Marta Alfred RN - 10/22/2017 11:53 AM EDT Chart reviewed, care reviewed with primary team. Mr Mason continues ready for discharge to SNF/Swing level of care. Over 30 referrals have been placed (statewide referrals) and all declined. Barriers include behaviors and patient with [place] Medicaid only for insurance. Mr Mason was admitted on 09/02 with fractured acetabulum requiring ORIF (09/04). He will be non weight bearing for 4 more weeks. Prior to admission he was living in a detention. He was independent with ambulation and lived on the second floor without elevator access. To return there he must be able to manage stairs. He has a guardian who requests update calls on Friday, Friday and Friday. COOK CAMP following as well and states a call was made yesterday. Call placed to [facility] Small Animal Veterinarian Lc Hull (?sp) [phone] updated the contact information on his face sheet with his information. I left a message to update him on status and seek additional support/suggestions. I also reached the business taxes specialist Noel Estrella who asked that all calls go to his leather case finisher. * Isabel Donis MD - 10/21/2017 3:39 [...] minimumof two midnights or is on the [facility] inpatient only procedure list (status C) due to: the patient has met Inpatient IPI criteria and is awaiting rehabilitation or long term facility placement withactive referrals in process Team Pager(MD Coverage 27/01): #[phone] PCP: NAKIA Cifuentes [phone] Isabel Donis MD 10/21/2017 * Skyla Aranda [...] be re-tasked at discharge - please page #[phone] prior to discharge so follow up can be arranged. Skyla Aranda MD, PGY-1 Orthopaedic Surgery Pager #: [phone] Associated attestation - Amy Lance MD - [...] minimumof two midnights or is on the [facility] inpatient only procedure list (status C) due to: the patient has met Inpatient IPI criteria and is awaiting rehabilitation or long term facility placement withactive referrals in process Team Pager( Coverage 27/01): #[phone] PCP: NAKIA Cifuentes [phone] Isabel Donis MD 10/20/2017 * Judie Thrasher [...] yet been found, appreciate assistance. NPO from [place] for CT tomorrow with anesthesia. Plan: # [...] minimumof two midnights or is on the [facility] inpatient only procedure list (status C) due to: the patient has met Inpatient IPI criteria and is awaiting rehabilitation or long term facility placement withactive referrals in process Team Pager( Coverage 27/01): #[phone] PCP: NAKIA Cifuentes [phone] Isabel Donis MD 10/19/2017 * Isabel Donis [...] minimumof two midnights or is on the [facility] inpatient only procedure list (status C) due to: the patient has met Inpatient IPI criteria and is awaiting rehabilitation or long term facility placement withactive referrals in process Team Pager( Coverage 27/01): #[phone] PCP: NAKIA Cifuentes [phone] Isabel Donis MD 10/18/2017 * Tez Tate, COOK CAMP - 10/17/2017 5:31 PM EDT Based on discussions with the multi-disciplinary healthcare team, the patient would benefit from skilled level of care at discharge. ?? I have met with the patient/medical sales representative to discuss discharge planning needs. I have provided the [facility], Office of Care Management letter from the Sales Representative Adding Machines pertaining to rehab referrals. I have also provided a letter describing our affiliations within the [facility] and educated them about their right to choose where referrals are placed. ?? I reviewed the different levels of rehab including SNF, swing, acute and LTAC with the patient/medical sales representative. ?? The patient/medical sales representative has been provided a list of facilities within their preferred geographic area. ?? I have requested that the patient/medical sales representative provide at least three choices for referral. ?? The patient/medical sales representative have requested referrals to: ?? 1. [facility] ?? Expected date of discharge: 10/17/2017 Note routed to Shipping Receiving Clerk who will communicate referrals to facilities and [...] Diagnosis Date Resolved No resolved problems to [facility]. PM Active Non-Hospital Problems Diagnosis ??? Insomnia [...] of Care: Full Team Pager(MD Coverage 27/01): #[phone] PCP: NAKIA Cifuentes [phone] JEVON ROSALES MD 10/17/2017 * Ren Walters OTA - 10/17/2017 10:58 AM EDT Attempted to see pt this morning, pt presents with increased agitation at this time. Will attempt again at a more appropriate time. Ren MAYA Pager: [phone] * Debbie Keller DT - 10/16/2017 4:08 [...] noted. Assessment: Patient seen for follow up. Wall Attendant able to speak with nursing on pt's [...] Dr Koch, orthopedic MD Skyla Aranda, a medical sales representative from [facility], Nursing and [address] [place] [address] leadership were also present as well as this CM. Miguel Angel Dunbar and Lc Martinez [phone]: Director [facility] were able to attend in person and Subha Tejeda [phone] is the RN of [facility] who oversees the detention was available to participate via conference call. CM did reach out to Noel Estrella [phone]:??[facility] Dept of Aging and [place], Developmental Services Specialist however Noel was unavailable [...] coverage for sitters for miguel angel. [place] leadership discussed the challenges of staffing [employer] needs, if the care givers are unable to provide staff. It was discussed the caregivers may be more useful during the day to encourage [employer] ( fluid intake). We discussed pt's PCP is also new to Miguel Angel and not able to provide much insight. At this time, placement continues to be challenging. State wide referral in place to all skilled facilities in [place].- no bed offers Referrals are also in place to [facility] affiliates no bed offers. CM will continue [...] Date Resolved No resolved problems to display. [facility] Active Non-Hospital Problems Diagnosis ??? Insomnia ??? [...] minimumof two midnights or is on the [facility] inpatient only procedure list (status C) due to: the patient has met Inpatient IPI criteria and is awaiting rehabilitation or long term facility placement withactive referrals in process Team Pager( Coverage 27/01): #[phone] PCP: NAKIA Cifuentes [phone] DILLON KOCH MD 10/16/2017 * Dillon Koch [...] not yet been found, appreciate CM assistance. Plan: * Hypernatremia in the setting [...] minimumof two midnights or is on the [facility] inpatient only procedure list (status C) due to: the patient has met Inpatient IPI criteria and is awaiting rehabilitation or long term facility placement withactive referrals in process Team Pager(MD Coverage 27/01): #[phone] PCP: NAKIA Cifuentes [phone] DILLON KOCH MD 10/15/2017 * Dillon Koch [...] minimumof two midnights or is on the [facility] inpatient only procedure list (status C) due to: the patient has met Inpatient IPI criteria and is awaiting rehabilitation or long term facility placement withactive referrals in process Team Pager(MD Coverage 27/01): #[phone] PCP: NAKIA Cifuentes [phone] DILLON KOCH MD 10/14/2017 * Skyla Aranda [...] for rehab, however, returning to previously attended detention not an option rightnow (no room on [...] be re-tasked at discharge - please page #[phone] prior to discharge so follow up can be arranged. Skyla Aranda MD, PGY-1 Orthopaedic Surgery Pager #: [phone] Associated attestation - Amy Lance MD - [...] minimumof two midnights or is on the [facility] inpatient only procedure list (status C) due to: the patient has met Inpatient IPI criteria and is awaiting rehabilitation or long term facility placement withactive referrals in process Team Pager( Coverage 27/01): #[phone] PCP: NAKIA Cifuentes [phone] DILLON KOCH MD 10/13/2017 * Crista Diaz [...] urinary occurrences noted in 24 hours. Per purification supervisor, he did incredibly well with very limited [...] Anticipated Disposition: unclear, LUCAS working with [place] Team Pager(MD Coverage 27/01): #[phone] PCP: ANKIA Cifuentes [phone] DILLON KOCH MD 10/12/2017 * Christopher Hess MD - 10/11/2017 12:41 PM EDT Images from the original note were not included. ENDOCRINOLOGY FOLLOW UP INPATIENT NOTE [facility] Name: Miguel Angel Mason Date of Consultation: [...] Procedure Laterality Date ??? PRO OPEN ORACLE PROGRAMMER FIX ACETABULAR FX Left 09/04/2017 @OPEN TREATMENT, ACETABULAR FX (WRVU 25.41) performed by Amy Lance MD at [facility] MAIN OR Allergies Allergen Reactions [...] input(s): PLT Last 3 Lytes Recent Labs 10/11/1760410/10/17200410/10/17 1124 NA 151* 153* 150* K 3.8 [...] working with [place] Team Pager( Coverage 27/01): #[phone] PCP: NAKIA Cifuentes [phone] DILLON KOCH MD 10/11/2017 * Chavez Kelsey RN - 10/10/2017 2:08 PM EDT OFFICE OF CARE MANAGEMENT Per review with COOK CAMP she has spoken with state CM who suggests that [facility] open referrals for plmt statewide . Will ask RS to open referral to all SNF's in [place] per their recommendation. Per review with COOK CAMP- Miguel Angel cortes is aware of this [...] today. I also called Noel Estrella at [place] Medicaid state office, and left a message. I also called and spoke with Subha at [facility]. She will talk with her airplane pilot supervisor Lc this pm, and let me know if they can attend. If they cannot attend in person, one or both of them should be able to participate by speaker phone. Subha asked if we had sent referrals to every SNF in [place]. We had not, but Radha will initiate those referrals today. Plan: Will contact medical team and nursing leadership to inform them about the meeting. * Christopher Hess MD - 10/10/2017 8:48 AM EDT ENDOCRINOLOGY FOLLOW UP INPATIENT NOTE [facility] Name: Miguel Angel Mason Date of Consultation: [...] Procedure Laterality Date ??? PRO OPEN ORACLE PROGRAMMER FIX ACETABULAR FX Left 09/04/2017 @OPEN TREATMENT, ACETABULAR FX (WRVU 25.41) performed by Amy Lance MD at [facility] MAIN OR Allergies Allergen Reactions [...] to get patient ready for discharge to 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 care facility. DDAVP dosing was held once [...] working with [place] Team Pager( Coverage 27/01): #[phone] PCP: NAKIA Cifuentes [phone] DILLON KOCH MD 10/10/2017 * Dayne Rm [...] CARE MANAGEMENT Per review with ARELI [facility]ones [facility] is currently reviewing patient. Awaiting rehab [...] in the interim. ADAM Kathleen Pager # [phone] * Jevon Rosales MD - 10/09/2017 11:13 [...] of Care: Full Team Pager(MD Coverage 27/01): #[phone] PCP: NAKIA Cifuentes [phone] JEVON RSOALES MD 10/09/2017 * Skyla Ayala OT - 10/08/2017 3:56 PM EDT Occupational Therapy Note Spoke with ZULMA, and adjusted goals for bathing and therapeutic activity in doc flow. TERRELL Vance Pager [phone] * Jevon Rosales MD - 10/08/2017 11:54 [...] Date Resolved No resolved problems to display. H Active Non-Hospital Problems Diagnosis ??? Insomnia [...] of Care: Full Team Pager(MD Coverage 27/01): #[phone] PCP: NAKIA Cifuentes [phone] JEVON ROSALES MD 10/08/2017 * Chavez Kelsey RN - 10/07/2017 1:36 PM EDT OFFICE OF CARE MANAGEMENT [facility] miguel angel and she explains she has been reaching out to a variety of facilities. She has communicated with facility called [facility] in [facility]. She explains she has spoken with admission coordinator Mavis. Subha explains in her discussion with admission coordinator,she explains they are willing to review for skilled stay for this gentleman and have had experiencewith challenging patient's in past. We discussed his detention continue to seek out appropriate first level housing to meet miguel angel'sWB limits at this time. Subha has already discussed this option with Miguel Angel Sister Bettina and [facility] they are all in agreement it is acceptable;e to open option for referral. At this time, will expand referral option to include - [facility] in [facility]. They request information be faxed : Avelina [...] of Care: Full Team Pager(MD Coverage 27/01): #[phone] PCP: NAKIA Cifuentes [phone] JEVON ROSALES MD 10/07/2017 * Skyla Aranda [...] Medically ready, however, returning to previously attended detention not an option right now (no room [...] Aranda MD, PGY-1 Orthopaedic Surgery Pager #: [phone] Associated attestation - Amy Lance MD - [...] the pt. The pt lives in a detention and rooms are on the 2nd floor. Due to privacy and state guidelines, the pt can not be placed in any open areas, which means that a hospital bed can not be placed onthe first floor for the pt.PRANEETH also spoke with the pt sister and informed her that multiple referrals over the state f [place] will need to be sent out for the patient, as the pt is medically ready for D.C. The SW did speak with the fishing line winding machine operator of the detention who states that he is continuing to locate housing that can accommodate the pt. The SW sent out multiple referrals and awaiting to see if the pt canbe accepted. [facility] is willing to provide additional care for the pt of 27/01 to assist any accepting facility. PRANEETH sent an email to SW Pipe Line Maintenance Supervisor, Interim Director, Educator and CM to reach out for any other ideas or assistance in cordinating a safe D/C for the pt. SW to remain available as needed for D/C planningand coordination. Tez Tate Pager [phone] * Tez Tate MSW - 10/06/2017 11:00 AM EDT Based on discussions with the multi-disciplinary healthcare team, the patient would benefit from skilled level of care at discharge. ?? I have met with the patient/medical sales representative to discuss discharge planning needs. I have provided the [facility], Office of Care Management letter from the Sales Representative Adding Machines pertaining to rehab referrals. I have also provided a letter describing our affiliations within the [facility] and educated them about their right to choose where referrals are placed. ?? I reviewed the different levels of rehab including SNF, swing, acute and LTAC with the patient/medical sales representative. ?? The patient/medical sales representative has been provided a list of facilities within their preferred geographic area. ?? I have requested that the patient/medical sales representative provide at least three choices for referral. ?? The patient/medical sales representative have requested referrals to: 1. [facility] 2. [facility] 3. [facility] 4. [facility] Swing [facility] 5. [facility] 6. [facility] 7. [facility] ?? Expected date of discharge: 10/06/17 Note routed to Shipping Receiving Clerk who will communicate referrals to facilities and [...] Date Resolved No resolved problems to display. [facility] Active Non-Hospital Problems Diagnosis ??? Insomnia ??? [...] s2, no m/r/g, dps good bilaterally MS: 11/08 B UE & LE Ext: no c/c/e [...] of Care: Full Team Pager(MD Coverage 27/01): #[phone] PCP: NAKIA Cifuentes [phone] JEVON ROSALES MD 10/05/2017 * Reba Linton [...] CREATININE 1.07 1.16 0.97 IMAGING: Pelvis Xray 3/20: Prior fixation of the left pelvic fracture. 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 Diet Regular diet with 2.5L fluid restriction Discharge planning No rehab acceptances as of yet. His current detention is unable to find first floor room for him. CM working with [facility] for further options. Lines/Access None Morse catheter None DVT Prophylaxis Enoxaparin Code status FULL Team Pager [phone] PCP NAKIA Cifuentes Attestation IPI Certification I certify that I am a D-H credentialed attending provider with admitting privileges and that the patient meets or has met medical necessity to require an inpatient IPI level of care meeting a minimumof two midnights or is on the [facility] inpatient only procedure list (status C) due to: the patient has met Inpatient IPI criteria and is awaiting rehabilitation or long term facility placement withactive referrals in process REBA LINTON MD * Reba Linton MD - 10/04/2017 3:44 PM EDT [facility] Medicine Daily Progress Note Admit Date: [...] 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 Diet Regular diet with 2.5L fluid restriction Discharge planning No rehab acceptances as of yet. His current detention is unable to find first floor room for him. CM working with [facility] for further options. Lines/Access None Morse catheter None DVT Prophylaxis Enoxaparin Code status FULL Team Pager [phone] PCP NAKIA Cifuentes Attestation IPI Certification I certify that I am a D-H credentialed attending provider with admitting privileges and that the patient meets or has met medical necessity to require an inpatient IPI level of care meeting a minimumof two midnights or is on the [facility] inpatient only procedure list (status C) due to: the patient has met Inpatient IPI criteria and is awaiting rehabilitation or long term facility placement withactive referrals in process REBA LINTON MD * Reba Linton MD - 10/03/2017 1:56 PM EDT [facility] Medicine Daily Progress Note Admit Date: [...] 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 Diet Regular diet with 2.5L fluid restriction Discharge planning No rehab acceptances as of yet. His current detention is unable to find first floor room for him. CM working with [facility] for further options. Lines/Access None Morse catheter None DVT Prophylaxis Enoxaparin Code status FULL Team Pager [phone] PCP NAKIA Cifuentes Attestation IPI Certification I [...] IPI criteria and is awaiting rehabilitation or long term facility placement withactive referrals in process REBA LINTON MD * Tez Tate MSW - 10/03/2017 10:52 AM EDT Based on discussions with the multi-disciplinary healthcare team, the patient would benefit from skilled level of care at discharge. ?? I have met with the patient/medical sales representative to discuss discharge planning needs. I have provided the [facility], Office of Care Management letter from the Sales Representative Adding Machines pertaining to rehab referrals. I have also provided a letter describing our affiliations within the [facility] and educated them about their right to choose where referrals are placed. ?? I reviewed the different levels of rehab including SNF, swing, acute and LTAC with the patient/medical sales representative. ?? The patient/medical sales representative has been provided a list of facilities within their preferred geographic area. ?? I have requested that the patient/medical sales representative provide at least three choices for referral. ?? The patient/medical sales representative have requested referrals to: ?? 1. [facility] are willing to send in additional care for assistance, please inform the facility of this. ?? Expected date of discharge: 10/03/2017 Note routed to Shipping Receiving Clerk who will communicate referrals to facilities and provide any required information. * Tez Tate MSW - 10/03/2017 10:30 AM EDT Sw reviewed the pt chart. The pt is medically ready for D/C but SW is having a hard time with placement. The SW reached out to Noel Estrella [phone]: [facility] Dept of Aging and [place], Developmental Services Specialist and Lc Martinez [phone]: Director [facility],as well as Subha Tejeda [phone] is the RN of [facility] who oversees the detention. Miguel Angel states that she is the nurse for the home where the pt is and when she spoke with Lc, he says that the pt does need to D/C from the hospital and he was trying to work on a plan. The SW also spoke with Noel from [facility] who states that she is willing to authorize additional services in any facility the pt transfers to, to try and accommodate that staff at the facility. The SW was unable to talk to Lc but did leave a voice mail for a return call. 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 Diet Regular diet Discharge planning No rehab acceptances as of yet. His current detention is unable to find first floor room for him. CM working with [facility] for further options. Lines/Access None Morse catheter None DVT Prophylaxis Enoxaparin Code status FULL Team Pager [phone] PCP NAKIA Cifuentes Attestation IPI Certification I certify that I am a D-H credentialed attending provider with admitting privileges and that the patient meets or has met medical necessity to require an inpatient IPI level of care meeting a minimumof two midnights or is on the [facility] inpatient only procedure list (status C) due to: the patient has met Inpatient IPI criteria and is awaiting rehabilitation or long term facility placement withactive referrals in process REBA [...] early, guide him to the chair Pager: [phone] [place] PTA Physical Therapy Rehabilitation Department * Guerrero Bah MD - 10/01/2017 3:28 PM EDT Images from the original note were not included. Endocrinology Follow up note Name: Miguel Angel Mason Date: 10/01/17 Room: [address] [place] [address] HPI: Miguel Angel Mason??is a 27 y.o.male??with [...] Procedure Laterality Date ??? PRO OPEN ORACLE PROGRAMMER FIX ACETABULAR FX Left 09/04/2017 @OPEN TREATMENT, ACETABULAR FX (WRVU 25.41) performed by Amy Lance MD at [facility] MAIN OR No family history [...] MD Endocrinology, Diabetes and Metabolism Fellow Pager #[phone] 10/01/2017 Associated attestation - Genevieve Page MD - 10/01/2017 6:59 PM EDT I discussed this patient with Dr. Niles Tillman. I reviewed the santos portions of the history and physical exam, and reviewed pertinent lab data. I was involved in all medical decision making and agree with this plan. GENEVIEVE PAGE MD Mining Captainequipment operation instructor Section of Endocrinology [facility] [place] * Kurt Blanco - 10/01/2017 3:23 PM [...] in the interim. ADAM Kathleen Pager # [phone] * Samson Alvarez - 10/01/2017 3:10 PM EDT Roof Truss Detailer Encounter Note Patient Name: Miguel Angel Mason : [id number] MR#: [id number] Admit Date: 09/02/2017 9:23 PM Hospital Day [...] Diagnosis Date Resolved No resolved problems to [facility]. PM Active Non-Hospital Problems Diagnosis ??? 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 Diet Regular diet Discharge planning No rehab acceptances as of yet. His current detention is unable to find first floor room for him. CM working with [facility] for further options. Lines/Access None Morse catheter None DVT Prophylaxis Enoxaparin Code status FULL Team Pager [phone] PCP NAKIA Cifuentes Attestation IPI Certification I certify that I am a D-H credentialed attending provider with admitting privileges and that the patient meets or has met medical necessity to require an inpatient IPI level of care meeting a minimumof two midnights or is on the [facility] inpatient only procedure list (status C) due to: the patient has met Inpatient IPI criteria and is awaiting rehabilitation or long term facility placement withactive referrals in process REBA [...] agree with this plan. 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 Diet Regular diet Discharge planning No rehab acceptances as of yet. His current detention is unable to find first floor room for him. CM working with [facility] for further options. Lines/Access None Omrse catheter None DVT Prophylaxis Enoxaparin Code status FULL Team Pager [phone] PCP NAKIA Cifuentes Attestation IPI Certification I certify that I am a D-H credentialed attending provider with admitting privileges and that the patient meets or has met medical necessity to require an inpatient IPI level of care meeting a minimumof two midnights or is on the [facility] inpatient only procedure list (status C) due to: the patient has met Inpatient IPI criteria and is awaiting rehabilitation or long term facility placement withactive referrals in process REBA LINTON MD * Guerrero Bah MD - 09/30/2017 3:10 PM EDT Images from the original note were not included. Endocrinology Follow up note Name: Miguel Angel Mason Date: 09/30/17 Room: [address] [place] [address] HPI: Miguel Angel Mason is a 27 [...] Procedure Laterality Date ??? PRO OPEN ORACLE PROGRAMMER FIX ACETABULAR FX Left 09/04/2017 @OPEN TREATMENT, ACETABULAR FX (WRVU 25.41) performed by Amy Lance MD at [facility] MAIN OR No family history [...] MD Endocrinology, Diabetes and Metabolism Fellow Pager #[phone] 09/30/2017 ' Associated attestation - Genevieve Page MD - 09/30/2017 4:49 PM EDT I discussed this patient with Dr. Niles Tillman. I reviewed the santos portions of the history and physical exam, and reviewed pertinent lab data. I was involved in all medical decision making and agree with this plan. GENEVIEVE PAGE MD Mining Captainequipment operation instructor Section of Endocrinology [facility] [place] * Desean De Oliveira W - 09/30/2017 5:55 AM EDT Orthopaedic Surgery Progress Note Surgery/Issue: ORIF left acetabulum Attending: Dr. Lance Date of surgery: 09/04/2017 Subjective/Events: NANATALIE, doing well today, appears comfortable. 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 Diet Regular diet Discharge planning No rehab acceptances as of yet. His current detention is unable to find first floor room for him. CM working with [facility] for further options. Lines/Access None Morse catheter None DVT Prophylaxis Enoxaparin Code status FULL Team Pager [phone] PCP NAKIA Cifuentes Attestation IPI Certification I [...] IPI criteria and is awaiting rehabilitation or long term facility placement withactive referrals in process REBA LINTON MD * Guerrero Bah MD - 09/29/2017 11:38 AM EDT Images from the original note were not included. Endocrinology Follow up note Name: Miguel Angel Mason Date: 09/29/17 Room: [address] [place] [address] HPI: Miguel Angel Mason is a 27 [...] Procedure Laterality Date ??? PRO OPEN ORACLE PROGRAMMER FIX ACETABULAR FX Left 09/04/2017 @OPEN TREATMENT, ACETABULAR FX (WRVU 25.41) performed by Amy Lance MD at [facility] MAIN OR No family history [...] MD Endocrinology, Diabetes and Metabolism Fellow Pager #[phone] 09/29/2017 Associated attestation - Genevieve aPge MD - 09/29/2017 5:38 PM EDT I discussed this patient with Dr. Niles Tillman. I reviewed the santos portions of the history and physical exam, and reviewed pertinent lab data. I was involved in all medical decision making and agree with this plan. GENEVIEVE PAGE MD Mining Captainequipment operation instructor Section of Endocrinology [facility] [place] * Tez Tate MSW - 09/29/2017 9:51 AM EDT PRANEETH reviewed the pt chart, the pt is still in need of placement. PRANEETH received an email from care management asking to give the pt guardian a call to update. The SW called the pt sister Bettnia on her cell phone and work phone. PRANEETH left a for a return call. SW to remain available to assist with D/C planning and coordination. 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 Diet Regular diet Discharge planning No rehab acceptances as of yet. His current detention is unable to find first floor room for him. CM working with [facility] for further options. Lines/Access None Morse catheter None DVT Prophylaxis Enoxaparin Code status FULL Team Pager [phone] PCP NAKIA Cifuentes Attestation IPI Certification I certify that I am a D-H credentialed attending provider with admitting privileges and that the patient meets or has met medical necessity to require an inpatient IPI level of care meeting a minimumof two midnights or is on the [facility] inpatient only procedure list (status C) due to: the patient has met Inpatient IPI criteria and is awaiting rehabilitation or long term facility placement withactive referrals in process REBA [...] them as documented. 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 Diet Regular diet Discharge planning Medically stable for discharge. No rehab acceptances as of yet. His current detention is unable to find first floor room for him. CM working with [facility] for further options. Lines/Access None Morse catheter None DVT Prophylaxis Enoxaparin Code status FULL Team Pager [phone] PCP NAKIA Cifuentes Attestation IPI Certification I certify that I am a D-H credentialed attending provider with admitting privileges and that the patient meets or has met medical necessity to require an inpatient IPI level of care meeting a minimumof two midnights or is on the [facility] inpatient only procedure list (status C) due to: the patient has met Inpatient IPI criteria and is awaiting rehabilitation or long term facility placement withactive referrals in process REBA [...] 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 IV access: none Tubes/Drains: none DVT PPX: Lovenox 40mg QHS Anticipated Disposition: Medically stable for discharge. No rehab acceptances as of yet. His current detention is unable to find first floor room for him. working with [facility] for further options. 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 IV access: none Tubes/Drains: none DVT PPX: Lovenox 40mg QHS Anticipated Disposition: Medically stable for discharge. No rehab acceptances as of yet. His current detention is unable to find first floor room for him. CM working with [facility] for further options. Goals of Care: Full code Team Pager(MD Coverage 27/01): #[phone] PCP: NAKAI Cifuentes [phone] Kya Enriquez MD 09/25/2017 * Debbie Keller DT - 09/24/2017 3:55 PM EDT Nutrition [...] noted. Assessment: Patient seen for follow up. Wall Attendant able to speak with nursing on pt's [...] 09/24/2017 11:13 AM EDT Office of Care Management(OCM)/Small Animal Veterinarian(CM)/Discharge Planning Service: Medicine Pager # [phone] CM Minerva Boyce RN,BSN,MA,AC pgr [phone] ?? Called Guardian /sister Bettina to update w d/c planning and pt status. Updated that: Is in room w cande lift so will be making transfers to chair, w/c etc. Staff working to find safe plan to help him w stand pivot that is safe for pt(requires 2 staff) andfor the staff as he gets combative - grabs hard, pinches etc. [facility] Director and Vt Disabilities looking for first floor room. ? Agreed RNCM will call Mon/Wed/Fri w updates. Provided pagr [phone] as contact pgr for now and she [...] dtermined by XRAY ?? 09/23: Met w [facility] director Lc Ny while he was visiting with pt. Barriers reviewed and remain unchanged. I notified him I had also had contact w Noel [facility] Dept of Aging /Indpendence Developmental [...] 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 IV access: none Tubes/Drains: none DVT PPX: Lovenox 40mg QHS Anticipated Disposition: Medically stable for discharge. No rehab acceptances as of yet. His current detention is unable to find first floor room for him. working with [facility] for further options. Goals of Care: Full code Team Pager(MD Coverage 27/01): #[phone] PCP: NAKIA Cifuentes [phone] Kya Enriquez MD 09/24/2017 * Gabe Marinelli [...] 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 IV access: none Tubes/Drains: none DVT PPX: Lovenox 40mg QHS Anticipated Disposition: Medically stable for discharge. No rehab acceptances as of yet. His current detention is unable to find first floor room for him. CM working with [facility] for further options. Goals of Care: Full code Team Pager( Coverage 27/01): #[phone] PCP: NAKIA Cifuentes [phone] Kya Enriquez MD 09/23/2017 Spoke with ortho to clarify weight bearing status. Given the need for plating, patient will be NWB pending an x-ray ~5 weeks post op (Around 10/09) at which time ortho will re-evaluate. * Kya Enriquez MD - 09/22/2017 3:32 PM EDT [facility] Medicine Daily Progress Note Admit Date: [...] 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 IV access: none Tubes/Drains: none DVT PPX: Lovenox 40mg QHS Anticipated Disposition: Medically stable for discharge. No rehab acceptances as of yet. His current detention is unable to find first floor room for him. LUCAS working with [facility] for further options. Goals of Care: Full code Team Pager( Coverage 27/01): #[phone] PCP: NAKIA Cifuentes [phone] Kya Enriquez MD 09/22/2017 * Kya Enriqeuz MD - 09/21/2017 12:11 PM EDT Hospital [...] 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 IV access: none Tubes/Drains: none DVT PPX: Lovenox 40mg QHS Anticipated Disposition: Medically stable for discharge. No rehab acceptances as of yet. His current detention is unable to find first floor room for him. CM working with [facility] for further options. Goals of Care: Full code Team Pager(MD Coverage 27/01): #[phone] PCP: NAKIA Cifuentes [phone] Kya Enriquez MD 09/21/2017 * Kya Enriquez [...] ECGs available Confirmed by MD Scottie, Sally ([id number]) on 09/05/2017 3:49:31 PM QTCCALC 429 IMAGING: [...] 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 IV access: none Tubes/Drains: none DVT PPX: Lovenox 40mg QHS Anticipated Disposition: Medically stable for discharge. No rehab acceptances as of yet. His current detention is unable to find first floor room for him. LUCAS working with [facility] for further options. Goals of Care: Full code Team Pager( Coverage 27/01): #[phone] PCP: NAKIA Cifuentes [phone] Kya Enriquez MD 09/20/2017 * Minerva Boyce RN - 09/19/2017 4:53 PM EDT Office of Care Management(OCM)/Small Animal Veterinarian(CM)/Discharge Planning Service: Medicine Pager # [phone] LUCAS Boyce,RN,BSN,MA,ACM pgr [phone] Housing Contacts for pt: ?? Noel Estrella [phone]: [facility] Dept of Aging and [place], Developmental Services Specialist ( Name provided by Office of the Public Guardian Alicia Joyce: [phone]) too late to reach Noel today. May be able to access Medicaid waiver funds, matched funding to assist. Also does the PASR for [facility]. Does is NOT under Choices for Care/Detention Care Medicaid program - he is under Developmental Services instead. ?? Lc Martinez-: Director [facility] [employer]([facility]): single agency contracted by [place] Dept Aging/Indep to provide services/housing for Miguel Angel ?? Subha Tejeda [phone] is the RN of [facility] who oversees the detention Miguel Angel is in. She is notthere 27/01 but is similar to home health RN. Spoke w Lc and Subha together this afternoon: ?? They have not had success in past in getting SNF rehab for pts with his level of disabiities ?? They are currently providing caregivers from pt's detention in order to provide patient with sense of comfort and stability from those he knows, to interpret his needs to the staff. It is appropriate for them to touch/talk w pt to assist in calming and if [facility] [place] ok with them wheeling him about in w/c it is ok with them. ?? Subha had great success in getting clinical and ability info from staff initially but of late theresponses have been that the person doesn't know. ?? [facility] has 5 homes all are full and pt's room is on 2nd floor 18 step walk up and there are stairs to enter the home. ?? The home that Miguel Angel is in is one [facility] rents so they can't make changes [...] plan status And to contact Noel of [place] [facility]. Clinical Leader working w staff [...] ECGs available Confirmed by MD Scottie, Sally ([id number]) on 09/05/2017 3:49:31 PM QTCCALC 429 IMAGING: [...] 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 IV access: none Tubes/Drains: none DVT PPX: Lovenox 40mg QHS Anticipated Disposition: Medically stable for discharge. No rehab acceptances as of yet. His current detention is unable to find first floor room for him. CM working with [facility] for further options. Goals of Care: Full code Team Pager( Coverage 27/01): #[phone] PCP: NAKIA Cifuentes [phone] Delgado Jeffrey MD 09/19/2017 Staff Addendum: ?? [...] 09/18/2017 5:30 PM EDT Office of Care Management(OCM)/Small Animal Veterinarian(CM)/Discharge Planning Service: CM Minerva BoyceRN,BSN,MA,[facility] pgr [phone] 09/17: Called Guardian and spoke with her about d/c planning and that facilities had declined her brother. She agrees he is getting bored, frustrated in hospital environment and would be bestserved to be in his own detention getting home PT/OT. Clinical update given and she asks that teamcall her with clinical decisions and updates and can reach her at her work phone if is after 2P. Today- left message with Subha Razo who is the RN overseeing detention. RNLUCAS Solitario Kelsey has spoken with her [...] ECGs available Confirmed by MD Scottie, Sally ([id number]) on 09/05/2017 3:49:31 PM QTCCALC 429 IMAGING: [...] 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 IV access: none Tubes/Drains: none DVT PPX: Lovenox 40mg QHS Anticipated Disposition: Medically stable for discharge, pending placement Goals of Care: Full code Team Pager(MD Coverage 27/01): #[phone] PCP: NAKIA Cifuentes [phone] Delgado Jeffrey MD 09/18/2017 Staff Addendum: I [...] minimumof two midnights or is on the [facility] inpatient only procedure list (status C) due to: Has met IPI and is now pending placement REBA LINTON MD * Reba Linton MD - 09/17/2017 4:41 PM EDT [facility] Medicine Daily Progress Note Admit Date: [...] ECGs available Confirmed by MD Scottie, Sally ([id number]) on 09/05/2017 3:49:31 PM QTCCALC 429 IMAGING: [...] 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 IV access: none Tubes/Drains: none DVT PPX: Lovenox 40mg QHS Anticipated Disposition: Medically stable for discharge, pending placement Goals of Care: Full code Team Pager(MD Coverage 27/01): #[phone] PCP: NAKIA Cifuentes [phone] REBA LINTON MD 09/17/2017 * Debbie Keller [...] Assessment: Patient seen for nutrition follow up. Wall Attendant able to speak with visitor on pt's [...] right leg only DVT prophylaxis: lovenox Closure: [place] to be removed ~09/19 Dressings: may leave open to air now Future Appointments Date Time Provider Department Center 09/19/2017 2:15 PM [facility] DX ROOM 1 Xray [facility] 09/19/2017 3:10 PM mAy Lance MD [facility] [...] re-attempt tomorrow when appropriate. Please page this copy writer if you have any questions, thank you. Agnieszka Mendiola, PT Pager #[phone] Physical Therapy Inpatient Rehabilitation * Ren Walters OTA - 09/16/2017 1:04 PM EDT Attempted to see pt this morning, pt working with other staff and notably agitated. Will attempt again at a more appropriate time. Ren MAYA Pager:[phone] * Reba Linton MD - 09/16/2017 8:34 [...] ECGs available Confirmed by MD Scottie, Sally ([id number]) on 09/05/2017 3:49:31 PM QTCCALC 429 IMAGING: [...] 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 IV access: none Tubes/Drains: none DVT PPX: Lovenox 40mg QHS Anticipated Disposition: pending workup of fever Goals of Care: Full code Team Pager(MD Coverage 27/01): #[phone] PCP: Lc Venegas PA [phone] Delgado Jeffrey MD PGY-1, Internal Medicine 09/16/2017 [...] extremities and yelling at time of exam. Carisa over lower abdominal and left lower abdominal incisions intact. Awaiting potential rehab or specialty [place] [facility] per care management notes. Hb is 6.8 [...] Time Provider Department Center 09/19/2017 2:15 PM [facility] DX ROOM 1 Xray [facility] 09/19/2017 3:10 PM Amy Lance MD [facility] Associated attestation - Amy Lance MD - 09/16/2017 6:12 AM EDT Agree with resident note. Mandy Lance MD Department of Orthopaedics 09/16/17 * Chavez Kelsey RN - 09/15/2017 10:03 AM EDT OFFICE OF CARE MANAGEMENT CM call to Subha - HEATHER at detention. We discussed declines by facilities- awaiting [facility] response. We discussed if there are any other home that may be able to accommodate Miguel Angel physical needs at this time. We discussed supportive services such as VNA. Subha will discuss with Home's airplane pilot supervisor in considering if miguel angel could [...] ECGs available Confirmed by MD Scottie, Sally ([id number]) on 09/05/2017 3:49:31 PM QTCCALC 429 VASCULAR: [...] 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 IV access: none Tubes/Drains: none DVT PPX: Lovenox 40mg QHS Anticipated Disposition: pending workup of fever Goals of Care: Full code Team Pager(MD Coverage 27/01): #[phone] PCP: NAKIA Cifuentes [phone] Delgado Jeffrey MD PGY-1, Internal Medicine 09/15/2017 [...] not included. ENDOCRINOLOGY FOLLOW UP INPATIENT NOTE [facility] Name: Miguel Angel Mason Date of Consultation: [...] Procedure Laterality Date ??? PRO OPEN ORACLE PROGRAMMER FIX ACETABULAR FX Left 09/04/2017 @OPEN TREATMENT, ACETABULAR FX (WRVU 25.41) performed by Amy Lance MD at [facility] MAIN OR Allergies Allergen Reactions [...] to autonomic instability related to hx of LAND TITLE EXAMINER insults described above Diet Regular diet Discharge planning Anticipate patient will be medically stable for discharge to rehab within next 24-48 hours Lines/Access None Morse catheter None DVT Prophylaxis Enoxaparin Code status FULL Team Pager [phone] PCP NAKIA Cifuentes Attestation IPI Certification I certify that I am a D-H credentialed attending provider with admitting privileges and that the patient meets or has met medical necessity to require an inpatient IPI level of care meeting a minimumof two midnights or is on the [facility] inpatient only procedure list (status C) due [...] touching or repositioning that leg. (medicine pager [phone]) notified and additional 2 mg of po [...] Sodium has now stabilized. Will plan to sblnG1D serum and urine osms and continue Q6H [...] to autonomic instability related to hx of LAND TITLE EXAMINER insults described above Diet Regular diet Discharge planning Anticipate patient will be medically stable for discharge to rehab within next 24-48 hours Lines/Access None Morse catheter None DVT Prophylaxis Enoxaparin Code status FULL Team Pager [phone] PCP NAKIA Cifuentes Attestation IPI Certification I certify that I am a D-H credentialed attending provider with admitting privileges and that the patient meets or has met medical necessity to require an inpatient IPI level of care meeting a minimumof two midnights or is on the [facility] inpatient only procedure list (status C) due [...] to autonomic instability related to hx of LAND TITLE EXAMINER insults described above. ? IV access: piv Tubes/Drains: Morse DVT PPX: lovenox Anticipated Disposition: Awaiting rehab once Na stable ?? Goals of Care: Full Code Team Pager( Coverage 27/01): #[phone] PCP: NAKIA Cifuentes [phone] REN SANCHEZ III, MD * Christopher Hess MD - 09/12/2017 8:17 AM EST Images from the original note were not included. ENDOCRINOLOGY FOLLOW UP INPATIENT NOTE [facility] Name: Miguel Angel Mason Date of Consultation: 09/12/2017 HPI: Miguel Angel D Barrup??is a 27 year old male??with PMH significant [...] patient became very agitated and crying out. Mrose was traumatically removed and kept outper his primary team overnight. Patient continues to cry out. Per notations, this is typical behavior for him. Patient had a sodium of 141. This morning. The patient is incontinent therefore urine output is not being accurately monitored. Patient is on 4L fluid restriction recommended yesterday. Past Surgical History: Procedure Laterality Date ??? PRO OPEN ORACLE PROGRAMMER FIX ACETABULAR FX Left 09/04/2017 @OPEN TREATMENT, ACETABULAR FX (WRVU 25.41) performed by Amy Lance MD at [facility] MAIN OR Allergies Allergen Reactions [...] it does not exceed these bounds. * Berlin Anderson MD - 09/12/2017 7:06 [...] right leg only DVT prophylaxis: lovenox Closure: [place] to be removed 09/19 Dressing: Mepilex to protect incisions from patient, replace as needed. Future Appointments Date Time Provider Department Center 09/19/2017 2:15 PM [facility] DX ROOM 1 Xray Leb [...] not included. ENDOCRINOLOGY FOLLOW UP INPATIENT NOTE [facility] Name: Miguel Angel Mason Date of Consultation: [...] Procedure Laterality Date ??? 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 Lindsey Walsh, 2:04 PM I saw this patient with [...] to autonomic instability related to hx of LAND TITLE EXAMINER insults described above. ? IV access: piv Tubes/Drains: Morse DVT PPX: lovenox Anticipated Disposition: Awaiting reahb ?? Goals of Care: Full Code Team Pager( Coverage 27/01): #[phone] PCP: NAKIA Cifuentes [phone] Delgado Jeffrey MD Attending Attestation Please see [...] of two midnights or is on the [facility] inpatient only procedure list (status C) due [...] at time of arrival and pt asleep. Wall Attendant able to speak with visitor on pt's [...] informed of supplemental shakes available if needed. Wall Attendant showed Adriane where unit kitchen is for [...] to autonomic instability related to hx of LAND TITLE EXAMINER insults described above. ? IV access: piv Tubes/Drains: Morse DVT PPX: lovenox Anticipated Disposition: Awaiting reahb ?? Goals of Care: Full Code Team Pager( Coverage 27/01): #[phone] PCP: NAKIA Cifuentes [phone] REN SANCHEZ III, MD * Shelley Tong RN - 09/10/2017 11:02 AM EST Office of Care Management Based on discussions with the multi-disciplinary healthcare team, his sibling, Bettina, would benefit from skilled level of care at discharge. ?? I have met with the patient/medical sales representative to discuss discharge planning needs. I have provided the [facility], Office of Care Management letter from the Sales Representative Adding Mach[employer] pertaining to rehab referrals. I have also provided a letter describing our affiliations within the [facility] and educated them about their right to choose where referrals are placed. ?? I reviewed the different levels of rehab including SNF, swing, acute and LTAC with the patient/medical sales representative. ?? The patient/medical sales representative has been provided a list of facilities within their preferred geographic area. ?? I have requested that the patient/medical sales representative provide at least three choices for referral. ?? The patient/medical sales representative have requested referrals to: ?? 1. [facility] ?? 2. [facility] [place], [place] 3. [facility] 4. [facility] ? Expected date of discharge: 09/10/2017 Note routed to Shipping Receiving Clerk who will communicate referrals to facilities and provide any required information. Shelley Tong RN Case Manager Pager #[phone] * Comi, Christopher Jerez MD - 09/10/2017 7:10 AM EST Images from the original note were not included. ENDOCRINOLOGY CONSULT INPATIENT NOTE [facility] Name: Miguel Angel Mason HPI: Miguel Angel [...] No events overnight per nursing staff and detention staff at bedside. Patient responding and says he is awesome. Very pleasant. Drinking to thirst. Hungry and thirsty all the time per care givers from detention, this is not new. 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 ?? Plan: Panhypopituitarism: --- Continue DDAVP BID [...] this TID regimenas requested by his primary coal chemist and sister, he be placed on 3L [...] also be on Vitamin D replacement using 8918-6855 IU daily. Thank you for allowing us [...] III, MD - 09/09/2017 7:43 AM EST [facility] Medicine Attending Daily Progress Note Admit [...] the setting of a possible seizure. Mr. Maosn continues to progress well, and is medically [...] to autonomic instability related to hx of LAND TITLE EXAMINER insults described above. ? IV access: piv Tubes/Drains: Morse DVT PPX: lovenox Anticipated Disposition: TBD pending clinical course ?? Goals of Care: Full Code Team Pager(MD Coverage 27/01): #[phone] PCP: NAKIA Cifuentes [phone] Delgado Jeffrey MD PGY-1, Internal Medicine 09/09/2017 [...] not included. ENDOCRINOLOGY FOLLOW UP INPATIENT NOTE [facility] Name: Miguel Angel Mason Date of Consultation: [...] No events overnight per nursing staff and detention staff at bedside. Patients sodium remains in appropriate range. Urine output higher than previous days. Thirst levels is normal according to detention staff member that knows the patient well. 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 Given that his detention has used a fluid restriction in his [...] sister Bettina Mason (Sibling) [id number] [facility] [address] (H)- Advance Care Planning: not on file Current Coping/Education/Information Needs: Coping well per care givers Current Functional Ability: has not had PT yet per care givers Functional Status Prior to Admission: lives in detention setting on 2nd level able to ascend stairs, showers self with stand by assist r/t blindness per care givers, non communicative however the care givers seem able to understand at least some of pt's attempts of communication. Home Environment[place] 3 [place] [facility] [place] Social & Family Supports/Community Resources: Extended Emergency Contact Information Primary Emergency Contact: Bettina Mason Address: [facility] Relation: Sibling Behavioral Health History: NA Substance Use/Abuse: NA Other Pertinent/Service Specific Information: unlikely be able to return to detention immediately Health/Prescription Coverage: Primary Insurance: Payor: [place] / Plan: [place] / Product Type: *No Product type* / Secondary Insurance: Prescription Coverage: see above Preferred Pharmacy: No Pharmacies Listed Other: None Primary Care Provider: NAKIA Cifuentes [phone] Patient/Caregiver Goals of Treatment: Safe discharge Potential Needs for Transition of Care: Rehab/SNF: TBD Home Health: no DME: no Dialysis: No Community Resources: No Transportation: ambulance Other: None Anticipated Barriers to Discharge/Special Considerations: None Plan: Per discussion with care givers pt may be near facilities such as [facility] and [facility] [place]. CM will need to connect with [facility] for choices A member of the Care Management team will continue to monitor progress, follow for continuity of care and assist with transition of care planning. CHAVEZ KELSEY RN Pager: [phone] * Christopher Hess MD - 09/08/2017 11:49 AM EST Images from the original note were not included. 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 [...] his history of polydipsia, reportedly in his detention as effective and managed by Dr. aZidi at [facility]. During this hospitalization his sodium down trended [...] the possibility of hypophosphatemic osteomalacia. For this [id number] hour urine studies of calcium, creatinine and [...] III, MD - 09/08/2017 8:25 AM EST [facility] Medicine Attending Daily Progress Note Admit [...] to autonomic instability related to hx of LAND TITLE EXAMINER insults described above. ? IV access: piv Tubes/Drains: Morse DVT PPX: lovenox Anticipated Disposition: TBD pending clinical course ?? Goals of Care: Full Code Team Pager(MD Coverage 27/01): #[phone] PCP: NAKIA Cifuentes [phone] Delgado Jeffrey MD PGY-1, Internal Medicine 09/08/2017 [...] of two midnights or is on the [facility] inpatient only procedure list (status C) due [...] left ischial and acetabular fracture with multiple yxxae-ugy-nouqg constructs. Tubing that could represent a surgical [...] right leg only DVT prophylaxis: lovenox Closure: [place] (to be removed at Orthopaedic follow-up appointment) Dressing: Mepilex x 7 days Antibiotics: Ancef x24 hours edna-op, complete Future Appointments Date Time Provider Department Center 09/19/2017 2:15 PM [facility] DX ROOM 1 Xray [facility] [...] by patient; replaced by nurse. OT hand muffler mechanic given for distraction. 24 hour urine commence at 0700 although needs to be [id number] r/t mistaken interpretation of a discontinued order from 09/06 not 09/07. Replaced calcium per orders. HEATHER Mascorro managing patient's care at detention is instructed to call Bettina (guardian and [...] ECGs available Confirmed by MD Scottie, Sally ([id number]) on 09/05/2017 3:49:31 PM QTCCALC 429 VASCULAR: [...] to autonomic instability related to hx of LAND TITLE EXAMINER insults described above. ?? IV access: piv Tubes/Drains: morse DVT PPX: lovenox Anticipated Disposition: TBD pending clinical course Goals of Care: Full Code Team Pager(MD Coverage 27/01): #[phone] PCP: NAKIA Cifuentes [phone] Attestation: IPI Certification I certify that I am a D-H credentialed attending provider with admitting privileges and that the patient meets or has met medical necessity to require an inpatient IPI level of care meeting a minimumof two midnights or is on the [facility] inpatient only procedure list (status C) due to: Acetabular fracture in patient with panhypopituitarism requiring operative repair and post-operative mgmt as above. REN SANCHEZ III, MD 09/07/2017 * Guerrero Bah MD - 09/07/2017 2:15 PM EST Images from the original note were not included. 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 On discussion with his primary coal chemist and his sister, however, they have made [...] and normal PTH level. GENEVIEVE PAGE MD Mining Captainequipment operation instructor Section of Endocrinology [facility] * Desean De Oliveira W - 09/07/2017 [...] left ischial and acetabular fracture with multiple lwvnp-mnw-jrljc constructs. 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 ?? 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 GENEVIEVE PAGE MD Mining Captainequipment operation instructor Section of Endocrinology [facility] * Desean De Oliveira Ella - 09/06/2017 6:23 AM EST Orthopaedic Surgery Progress Note Surgery/Issue: Procedure(s): ORIF left acetabulum Attending: Dr. Gitajn Date of surgery: 09/04/2017 Subjective/Events: NAEON, appears [...] left ischial and acetabular fracture with multiple ytpnm-pvn-xtypb constructs. 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 ?? Plan # Acetabular fracture -underwent [...] to autonomic instability related to hx of LAND TITLE EXAMINER insults described above. ?? IV access: piv Tubes/Drains: morse DVT PPX: lovenox Anticipated Disposition: TBD pending clinical course Goals of Care: Full Code Team Pager( Coverage 27/01): #[phone] PCP: NAKIA Cifuentes [phone] Attestation: IPI Certification I certify that I am a D-H credentialed attending provider with admitting privileges and that the patient meets or has met medical necessity to require an inpatient IPI level of care meeting a minimumof two midnights or is on the [facility] inpatient only procedure list (status C) due to: Acetabular fracture in patient with panhypopituitarism requiring operative repair and post-operative mgmt as above. FRAN GILLIAM MD 09/05/2017 * Guerrero Bah MD - 09/05/2017 1:05 PM EST Images from the original note were not included. 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 She was telling me sister wants to speak with us as she feels he should be on DDAVP three times a day instead of twice a day. Caregiver confirmed at detention they were fluid restricting him to 100 [...] noted Labs: Results for MIGUEL ANGEL MASON Judy ( ) as of 09/05/2017 13:27 Ref. 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 I spoke with his primary coal chemist, Dr. Wilder Zaidi of [facility] Department of Endocrinology, for more details [...] could be related to renal phosphate wasting ([id number]) He is not acidemic nor hypokalemic, so [...] citrate 950mg po TID GENEVIEVE PAGE MD Mining Captainequipment operation instructor Section of Endocrinology [facility] * Celine Power MD - 09/05/2017 7:49 AM EST Left pelvic drain removed. 40 intact holes visible in tubing. Drain sponge and overlying gauze for dressing. Patient tolerated drain removal well. Celine Power MD [id number] * Desean De Oliveira - 09/05/2017 6:16 [...] left ischial and acetabular fracture with multiple ocqvc-rba-orwyk constructs. Tubing that could represent a surgical [...] prophylaxis: Per hospital medicine (recommend lovenox) Closure: [place] (to be removed at Orthopaedic [...] left ischial and acetabular fracture with multiple sdono-mbc-doqys constructs. Tubing that could represent a surgical [...] 09/04/2017 4:38 PM EST Patient arrived [facility] via bed from PACU s/p open treatment [...] Care: Full Code Team Pager( Coverage 27/01): #[phone] PCP: NAKIA Cifuentes [phone] Attestation: IPI Certification I certify that I am a D-H credentialed attending provider with admitting privileges and that the patient meets or has met medical necessity to require an inpatient IPI level of care meeting a minimumof two midnights or is on the [facility] inpatient only procedure list (status C) due [...] Name: Miguel Angel Mason Date: 09/04/17 Room: [address] [place] [address] HPI: Miguel Angel Mason is a 27 y.o.male with PMH significant for detention resident, 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 Apparently at his detention, he was being kept on a 2L [...] his testosterone replacement dose. GENEVIEVE PAGE MD Mining Captainequipment operation instructor Section of Endocrinology [facility] * Nyasia Cochran RN - 09/04/2017 8:40 [...] today Desean De Oliveira MD 09/04/2017 Pager: [phone] * David Phillips MD - 09/04/2017 6:00 [...] L Elbow flexion 5/5 R, 5/5 L Advisory Software Engineer LE: 5/5 R, UT L Hip flexion [...] Not Detected Not Detected Resp PCR Source [employer] AGENT Swab Urinalysis with reflex Culture Result Value Ref Range Glucose UA Negative Negative mg/dL Protein UA Negative Negative mg/dL Bilirubin UA Negative Negative mg/dL Urobilinogen UA >=4.0 (A) Normal mg/dL pH UA 7.0 5.0 - 8.0 Blood UA Negative Negative mg/dL Ketones UA Negative Negative mg/dL Nitrite UA Negative Negative Leukocytes UA Negative Negative mcL Appearance UA Clear Clear Spec Frederick UA 1.020 1.002 - 1.030 Color UA [...] ? Moisés Orr MD PGY-3 Neurology Pager [phone] ?? Neurology Attending ?? I saw and [...] ? David Phillips MD [place] [address] Pager #[phone] Email: [email or web address] * Fran Gilliam MD - 09/03/2017 [...] Care: Full Code Team Pager(MD Coverage 27/01): #[phone] PCP: NAKIA Cifuentes [phone] Attestation: IPI Certification I certify that I am a D-H credentialed attending provider with admitting privileges and that the patient meets or has met medical necessity to require an inpatient IPI level of care meeting a minimumof two midnights or is on the [facility] inpatient only procedure list (status C) due [...] HPI This is a 27 y.o. male detention resident with a history of panhypopituitarism, DI, [...] over the phone, so she had his hook up driver take him to the hospital. At [place], when asked about pain he would point to his left knee. Ultimately, CT was performed which showed acute leftacetabular fracture and osteopenia. He received several doses of morphine, dilaudid, and ativan forpain and sedation prior to transfer. He has not had a seizure for about 4 years. No recent med changes according to Bettina. Labs at [place] remarkable for Na 132. In the ER [...] None Social History Narrative [place] [facility] [place]/07/2014. Family Reviewed and non-contributory. [...] holding for OR ?? PCP: NAKIA Cifuentes [phone] Christopher Dalal Pager #[phone] Hospital Medicine IPI Certification I certify that I am a D-H credentialed attending provider with admitting privileges and that the patient meets or has met medical necessity to require an inpatient IPI level of care meeting a minimumof two midnights or is on the [facility] inpatient only procedure list (status C) due to: acetabular fracture requiring operative repair. documented in this encounter ED Notes * Darren Joyce RN - 09/03/2017 3:23 PM EST Pt resting on bed in the room with coal conveyor operator at the bedside. Pt to have [...] to be in pain. Dr Dalal paged. * Crista Baptiste NRP - 09/03/2017 3:03 AM EST Pt [...] and incontinence who presents as transfer from [place]; he is not accompanied by family; history obtained from records at [place]. [facility] records, he had a possible tonic clonic seizure on bus, and then was unresponsive and gurgling. He was taken to the ED and noted to have left hip and knee pain. Imaging there showed possible left acetabular fx so he was transferred here for further management. At [place] ED, he got ativan 0.5 and morphine [...] y.o. who I accepted in transfer from [place] The patient will be evaluated in the [...] Ongoing (Interventions Implemented as Appropriate) 03/09/18 1731 Thought Process Alteration (Adult) Improved Thought Process [...] Assessment Outcome: Ongoing (Interventions Implemented as Appropriate) 01/05/18221502/05/1834 03/04/18 1858 Discharge Needs Assessment Concerns To [...] Conf Outcome: Ongoing (Interventions Implemented as Appropriate) 03/06/18343 Interdisciplinary Rounds/Family Conf Participants nursing;patient * Plan of Care - Mady Recio RN - 03/05/2018 3:43 PM EDT Problem: Patient Care Overview Goal: Plan of Care Review Outcome: Ongoing (Interventions Implemented as Appropriate) 03/04/18 18503/05/18 0940 Coping/Psychosocial Plan Of Care Reviewed With [...] ordered. Inform MD of any changes. Await rehab/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 care placement. INDIVIDUALIZED FALL PREVENTION INTERVENTIONS: Patient-specific [...] and aggressive. VSS on room air, except [id number] throughout morning. 3 samples drawn but hemolyzed [...] Ongoing (Interventions Implemented as Appropriate) 02/25/18 0433 02/26/1831 Coping/Psychosocial Plan Of Care Reviewed With -- [...] Review Outcome: Ongoing (Interventions Implemented as Appropriate) 02/23/1841402/23/18 173 Coping/Psychosocial Plan Of Care Reviewed With [...] Handling Outcome: Ongoing (Interventions Implemented as Appropriate) 02/23/18 0902/23/18 1700 Restraint Interventions Safety Promotion/Fall Prevention -- [...] Ongoing (Interventions Implemented as Appropriate) 02/17/18 1833 02/21/182 Coping/Psychosocial Plan Of Care Reviewed With -- [...] Outcome: Ongoing (Interventions Implemented as Appropriate) 02/17/18 183 Coping Strategies Supportive Measures positive reinforcement provided;problem [...] (Interventions Implemented as Appropriate) 02/16/18 1311 02/16/18 213 Restraint Interventions Safety Promotion/Fall Prevention -- fall [...] Outcome: Ongoing (Interventions Implemented as Appropriate) 02/13/18 17502/14/182146 Coping/Psychosocial Plan Of Care Reviewed With -- [...] Health Outpatient/Agency/Support Group Needs assisted living facility (specify);detention (specify) -- -- Anticipated Changes Related to [...] Ongoing (Interventions Implemented as Appropriate) 02/11/18 1717 Skin Integrity Impairment, Risk/Actual (Adult) Skin Integrity/Wound [...] Handling Outcome: Ongoing (Interventions Implemented as Appropriate) 02/10/18 0902/10/18 1052 02/10/18 1625 Restraint Interventions Safety Promotion/Fall [...] Control Outcome: Ongoing (Interventions Implemented as Appropriate) 02/10/18 0914 02/10/18 1625 Coping Strategies Supportive Measures verbalization of [...] Health Outpatient/Agency/Support Group Needs assisted living facility (specify);detention (specify) -- -- Anticipated Changes Related to [...] Review Outcome: Ongoing (Interventions Implemented as Appropriate) 02/05/1836 02/08/182014 Coping/Psychosocial Plan Of Care Reviewed With [...] until medically ready for discharge back to detention.? INDIVIDUALIZED FALL PREVENTION INTERVENTIONS: ?? Patient-specific fall [...] Health Outpatient/Agency/Support Group Needs assisted living facility (specify);detention (specify) -- -- Anticipated Changes Related to [...] Health Outpatient/Agency/Support Group Needs assisted living facility (specify);detention (specify) -- Anticipated Changes Related to Illness [...] Health Outpatient/Agency/Support Group Needs assisted living facility (specify);detention (specify) -- Anticipated Changes Related to Illness [...] Health Outpatient/Agency/Support Group Needs assisted living facility (specify);detention (specify) -- Anticipated Changes Related to Illness [...] given. 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 processing shift supervisor, but able to calm down and rest [...] Health Outpatient/Agency/Support Group Needs assisted living facility (specify);detention (specify) -- Anticipated Changes Related to Illness [...] Health Outpatient/Agency/Support Group Needs assisted living facility (specify);detention (specify) -- Anticipated Changes Related to Illness [...] EVALUATION:?Ongoing Goal: Fall Prevention-Safe Patient Handling 01/30/1881401/30/18 0900 01/30/18 1304 Restraint Interventions Safety Promotion/Fall Prevention -- [...] personal objects within reach;BADL personal routines maintained Angelic Fall Risk History of Falling 25 Secondary [...] and meds given. Sodium 140. RN and POWER PLANT ENGINEER assisted with ambulating patient. He walked 40ft [...] Appropriate) 01/14/18 1844 Interdisciplinary Rounds/Family Conf Participants physician;nursing;leather case finisher OUTCOME EVALUATION NOTE: OUTCOME SUMMARY: AxO to [...] Appropriate) 01/14/18 1844 Interdisciplinary Rounds/Family Conf Participants physician;nursing;leather case finisher OUTCOME EVALUATION NOTE: OUTCOME SUMMARY: AxO to [...] Appropriate) 01/14/18 1844 Interdisciplinary Rounds/Family Conf Participants physician;nursing;leather case finisher OUTCOME EVALUATION NOTE: OUTCOME SUMMARY: AxO to [...] Slept on and off overnight. This morning [id number], pt threw bed guillen across the room [...] Ongoing (Interventions Implemented as Appropriate) 01/15/18 1251 07/12/18 2020 Coping/Psychosocial Plan Of Care Reviewed With [...] Plan of Care Review 01/09/18 0408 01/11/18 08 Coping/Psychosocial Plan Of Care Reviewed With [...] Outcome: Ongoing (Interventions Implemented as Appropriate) 01/10/18 050 Thought Process Alteration (Adult) Improved Thought Process making progress toward outcome Problem: Fluid Volume Excess (Adult,Obstetrics,Pediatric) Goal: Stable Weight Patient will demonstrate the desired outcomes by discharge/transition of care. Outcome: Ongoing (Interventions Implemented as Appropriate) 01/10/18 050 Fluid Volume Excess (Adult,Obstetrics,Pediatric) Stable Weight making progress toward outcome Goal: Balanced Intake/Output Patient will demonstrate the desired outcomes by discharge/transition of care. Outcome: Ongoing (Interventions Implemented as Appropriate) 01/10/18 050 Fluid Volume Excess (Adult,Obstetrics,Pediatric) Balanced Intake/Output making [...] Ongoing (Interventions Implemented as Appropriate) 01/07/188 01/08/18 0830 Coping/Psychosocial Plan Of Care Reviewed [...] Ongoing (Interventions Implemented as Appropriate) 01/07/18 1718 01/07/182021 Coping/Psychosocial Plan Of Care Reviewed With -- [...] Outcome: Ongoing (Interventions Implemented as Appropriate) 01/07/18 2278 Coping/Psychosocial Plan Of Care Reviewed With patient [...] Health Outpatient/Agency/Support Group Needs assisted living facility (specify);detention (specify) Anticipated Changes Related to Illness none [...] as Appropriate) 01/05/182214 Interdisciplinary Rounds/Family Conf Participants leather case finisher;dietitian/nutrition services;nursing;physician;patient;family;social work/services OUTCOME EVALUATION NOTE: OUTCOME SUMMARY: [...] care. Outcome: Ongoing (Interventions Implemented as Appropriate) 01/05/185 Fluid Volume Excess (Adult,Obstetrics,Pediatric) Balanced Intake/Output making [...] Outcome: Ongoing (Interventions Implemented as Appropriate) 01/05/18 0762 Coping/Psychosocial Plan Of Care Reviewed With patient;caregiver;friend [...] motion and massage with lotion performed by [facility]. We have been trying to increase length of ambulation however, due to behavior patient has only been safe to stand-pivot from the bed to wheelchair/commode. Patient did sit out of bed in the wheelchair, wheeled himself around the unit multiple times, went outside with the [facility], and nursing attempted scheduled toileting. Patient did [...] his PRN Seroquel, nursing transferred [facility] bed, and we were able to deescalate [...] and ADLs]: Sitter. Surveillance [continuous indirect monitoring]: [place] Patient-specific fall prevention interventions for sensory deficits provided, if applicable: [X] Yes CPG GOAL OUTCOME EVALUATION: * Plan of Care - Rony De La Fuente RN - 01/04/2018 2:16 AM EDT Problem: Patient Care Overview Goal: Plan of Care Review Outcome: Ongoing (Interventions Implemented as Appropriate) 12/31/17 0359 01/03/18 1941 Coping/Psychosocial Plan Of Care Reviewed With -- [...] Implemented as Appropriate) 01/01/18 0900 01/03/18 1000 01/03/182144 Restraint Interventions Safety Promotion/Fall Prevention -- -- [...] Review Outcome: Ongoing (Interventions Implemented as Appropriate) 12/31/1735801/03/18814 Coping/Psychosocial Plan Of Care Reviewed With -- [...] You Have About Your Health or Care? IHSAAN -- -- What Questions Do You Have [...] to 0.1mg and MD instructed RN and POWER PLANT ENGINEER to make sure pt. Is getting his [...] rounding, 1:1 sitter at bedside, call morris inreach, room near RN station Patient-specific fall prevention [...] vanilla ice cream with his pills tonight. POWER PLANT ENGINEER sitter remains at bedside ensuring safety. PLAN [...] an assessment. One time BMP obtained at [facility]. Incontinent of large amounts of urine. No [...] Assessment Outcome: Ongoing (Interventions Implemented as Appropriate) 11/23/175 Discharge Needs Assessment Concerns To Be Addressed adjustment to diagnosis/illness concerns;basic needs concerns;care coordination/care conferences;cognitive/perceptual concerns;discharge planning concerns;home safety concerns Readmission Within The Last 30 Days no previous admission in last 30 days Provider Choice List(s) Given no Equipment Needed After Discharge walker, rolling;commode;wheelchair Discharge Facility/Level Of Care Needs assisted living facility;rehabilitation facility;nursing facility, skilled;nursing facility, basic;adult foster care/detention Current Discharge Risk chronically ill;cognitively impaired;dependent with mobility/activities of daily living;physical impairment Discharge Disposition still a patient Current Health Outpatient/Agency/Support Group Needs assisted living facility (specify);long term facility (specify);group home acute care facility (specify);detention (specify) Anticipated Changes Related to Illness none [...] station, call morris within reach, sitter at [facility]. Patient-specific fall prevention interventions for sensory [...] facility;rehabilitation facility;nursing facility, skilled;nursing facility, basic;adult foster care/detention Current Discharge Risk chronically ill;cognitively impaired;dependent with mobility/activities of daily living;physical impairment Discharge Disposition still a patient Current Health Outpatient/Agency/Support Group Needs assisted living facility (specify);long term facility (specify);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 acute care facility (specify);detention (specify) Anticipated Changes Related to Illness none [...] Ongoing (Interventions Implemented as Appropriate) 12/17/17 0523 12/24/17 2015 Coping/Psychosocial Plan Of Care Reviewed [...] Review Outcome: Ongoing (Interventions Implemented as Appropriate) 12/17/1752212/23/172029 Coping/Psychosocial Plan Of Care Reviewed With -- [...] Outcome: Ongoing (Interventions Implemented as Appropriate) 12/17/1752212/23/17 2030 Coping/Psychosocial Plan Of Care Reviewed With -- patient Plan of Care Review Progress progress towards functional goals is fair -- OUTCOME EVALUATION NOTE: OUTCOME SUMMARY: Pt cooperative with care, however frequently restless and yelling out during the night. Admin both scheduled and prn meds per orders. Pt offered multiple snacks, different types of music and continued with the 1:1 sitter. POWER PLANT ENGINEER played the guitar for pt which appeared [...] went outside this morning with caregiver and POWER PLANT ENGINEER. Pt was incontinent throughout shift. Pt started [...] Review Outcome: Ongoing (Interventions Implemented as Appropriate) 12/17/1752212/21/17 0830 Coping/Psychosocial Plan Of Care Reviewed With -- patient Plan of Care Review Progress progress towards functional goals is fair -- OUTCOME EVALUATION NOTE: OUTCOME SUMMARY: Pt is alert to self, VSS. Pt went outside with caregiver and POWER PLANT ENGINEER. Pt became more agitated in the afternoon, [...] Outcome: Ongoing (Interventions Implemented as Appropriate) 12/17/1723 12/17/17 0847 Coping/Psychosocial Plan Of Care Reviewed With [...] Surveillance [continuous indirect monitoring]: Purposeful rounding, call morirs in reach. Bed alarm on, sitter at [...] with FWW and 1-2assist Anticipated Discharge Disposition: long term facility (could go to handicap accesible detention with assistance) [facility] PTA Pager: [phone] Inpatient Physical Therapy 12/10/17 1145 Rehab Evaluation [...] pain when attempting stairs) Bed Mobility Assessment/Treatment Etjgsd-id-Zlw Letcher (Bed Mobility) supervision required Comment (Bed Mobility) extra time required Transfer Assessment/Treatment Bed-Chair Letcher (Transfers) minimum assist (75% patient effort) Twd-Gxskv-Mma Assistive Device (Transfers) rolling walker Letcher (Sit-Stand Transfers) supervision required Letcher (Stand-Sit Transfers) supervision required Jdo-Egiwd-Jxl Assistive Device (Transfers) rolling walker Safety Issues (Transfers) balance decreased during turns;sequencing ability decreased;step length decreased;weight-shifting ability decreased Impairments (Transfers) balance impaired;strength decreased;vision impaired Comment (Transfers) assist for walker management when turning, cues to place L LE flat on the floor Gait Assessment/Treatment Letcher (Gait) contact guard assist Assistive Device (Gait) [...] x 1 Handrail Location (Stairs) both sides Letcher (Stairs) moderate assist (50% patient effort);2 person [...] all bed mobility activities Bed Mobility Goal, Letcher Level moderate assist (50% patient effort) Bed Mobility Goal, Outcome Achieved goal ongoing Gait Training Goal Gait Training Goal, Date Established 09/09/17 Gait Training Goal, Time to Achieve by discharge Gait Training Goal, Letcher Level minimum assist (75% patient effort) Gait Training Goal, Assist Device walker, rolling Gait Training Goal, Distance to Achieve 15 ft Gait Training Goal, Outcome goal met Transfer Training Goal Transfer Training Goal, Date Established 09/09/17 Transfer Training Goal, Time to Achieve by discharge Transfer Training Goal, Activity Type osg-sh-cbroy/cwoxc-xx-oiw;aum-zb-olsmt/zuntl-gw-lcd Transfer Train Goal, Letcher Level minimum assist (75% patient effort) Transfer Training Goal, Assist Device walker, rolling Transfer Training Goal, Outcome goal ongoing Physical Therapy Goal PT Goal, Date Established 09/09/17 PT Goal, Time to Achieve by discharge PT Goal, Activity Type Pt will propel self in w/c household distances PT Goal, Letcher Level set up required;supervision required PT Goal, Outcome goal ongoing Clinical Impression Therapy Frequency 2-4 times/wk Anticipated Equipment Needs at Discharge front wheeled walker Anticipated Discharge Disposition long term facility (could go to handicap accesible detention with assistance) * Plan of Care - [...] facility;rehabilitation facility;nursing facility, skilled;nursing facility, basic;adult foster care/detention Current Discharge Risk chronically ill;cognitively impaired;dependent with mobility/activities of daily living;physical impairment Discharge Disposition still a patient Current Health Outpatient/Agency/Support Group Needs assisted living facility (specify);long term facility (specify);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 Night IRS AGENT Marya paged, will pass along to day [...] Ongoing (Interventions Implemented as Appropriate) 12/08/17 0720 12/08/17199912/08/17 2200 Restraint Interventions Safety Promotion/Fall Prevention -- [...] facility;rehabilitation facility;nursing facility, skilled;nursing facility, basic;adult foster care/detention Current Discharge Risk chronically ill;cognitively impaired;dependent with mobility/activities of daily living;physical impairment Discharge Disposition still a patient Current Health Outpatient/Agency/Support Group Needs assisted living facility (specify);long term facility (specify);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 Sitter and home school coordinator remained at beside throughout shift. No acute [...] [continuous indirect monitoring]: Room near RN station, felyo, sitter at bedside ?? Patient-specific fall prevention [...] Outcome: Ongoing (Interventions Implemented as Appropriate) 12/06/17 1936 12/07/17 0835 12/07/172033 Restraint Interventions Safety Promotion/Fall Prevention -- -- [...] facility;rehabilitation facility;nursing facility, skilled;nursing facility, basic;adult foster care/detention Current Discharge Risk chronically ill;cognitively impaired;dependent with mobility/activities of daily living;physical impairment Discharge Disposition still a patient Current Health Outpatient/Agency/Support Group Needs assisted living facility (specify);long term facility (specify);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 VSS. fleet service clerk at bedside, verbalizes I am not 100% [...] [continuous indirect monitoring]: Room near RN station, [facility], sitter at bedside Patient-specific fall prevention [...] facility;rehabilitation facility;nursing facility, skilled;nursing facility, basic;adult foster care/detention Current Discharge Risk chronically ill;cognitively impaired;dependent with mobility/activities of daily living;physical impairment Discharge Disposition still a patient Current Health Outpatient/Agency/Support Group Needs assisted living facility (specify);long term facility (specify);group home acute care facility (specify);detention (specify) Anticipated Changes Related to Illness none [...] facility;rehabilitation facility;nursing facility, skilled;nursing facility, basic;adult foster care/detention Current Discharge Risk chronically ill;cognitively impaired;dependent with mobility/activities of daily living;physical impairment Discharge Disposition still a patient Current Health Outpatient/Agency/Support Group Needs assisted living facility (specify);long term facility (specify);group home acute care facility (specify);detention (specify) Anticipated Changes Related to Illness none [...] facility;rehabilitation facility;nursing facility, skilled;nursing facility, basic;adult foster care/detention Current Discharge Risk chronically ill;cognitively impaired;dependent with mobility/activities of daily living;physical impairment Discharge Disposition still a patient Current Health Outpatient/Agency/Support Group Needs assisted living facility (specify);long term facility (specify);group home acute care facility (specify);detention (specify) Anticipated Changes Related to Illness none [...] FWW and 1-2 assist Anticipated Discharge Disposition: long term facility (could go to handicap accesible detention with assistance) [facility] PTA Pager: [phone] Inpatient Physical Therapy 12/04/17 2635 Rehab Evaluation Document Type therapy note (daily [...] after ambulating, reports pain) Bed Mobility Assessment/Treatment Spkefv-et-Sss Letcher (Bed Mobility) moderate assist (50% patient effort) Comment (Bed Mobility) extra time required, donned socks and gown with assist Transfer Assessment/Treatment Bed-Chair Letcher (Transfers) minimum assist (75% patient effort);2 person assist required Iar-Alpbl-Ryq Assistive Device (Transfers) rolling walker Letcher (Sit-Stand Transfers) contact guard assist Letcher (Stand-Sit Transfers) contact guard assist Xij-Fdfea-Qpe Assistive Device (Transfers) rolling walker Safety Issues (Transfers) balance decreased during turns;step length decreased;weight-shifting ability decreased Impairments (Transfers) strength decreased;vision impaired Comment (Transfers) steady with FWW, occasional assist to move walker due to pt's decreased vision Gait Assessment/Treatment Letcher (Gait) contact guard assist Assistive Device (Gait) [...] all bed mobility activities Bed Mobility Goal, Letcher Level moderate assist (50% patient effort) Bed Mobility Goal, Outcome Achieved goal ongoing Gait Training Goal Gait Training Goal, Date Established 09/09/17 Gait Training Goal, Time to Achieve by discharge Gait Training Goal, Letcher Level minimum assist (75% patient effort) Gait Training Goal, Assist Device walker, rolling Gait Training Goal, Distance to Achieve 15 ft Gait Training Goal, Outcome goal met Transfer Training Goal Transfer Training Goal, Date Established 09/09/17 Transfer Training Goal, Time to Achieve by discharge Transfer Training Goal, Activity Type jyq-kk-zeysx/gbzoz-hh-avy;yjh-pr-qknpy/blded-fi-kyg Transfer Train Goal, Letcher Level minimum assist (75% patient effort) Transfer Training Goal, Assist Device walker, rolling Transfer Training Goal, Outcome goal ongoing Physical Therapy Goal PT Goal, Date Established 09/09/17 PT Goal, Time to Achieve by discharge PT Goal, Activity Type Pt will propel self in w/c household distances PT Goal, Letcher Level set up required;supervision required PT Goal, Outcome goal ongoing Clinical Impression Therapy Frequency 2-4 times/wk Anticipated Discharge Disposition long term facility (could go to handicap accesible detention with assistance) * Plan of Care - [...] pt and then also put on the [employer] for him to listen to. This [...] ground, as well as, sitter playing the [employer] forpt. The music, especially the guitar and [place] CD seemed to calm pt a bit, [...] Ongoing (Interventions Implemented as Appropriate) 11/25/17 0401 11/30/175 Coping/Psychosocial Plan Of Care Reviewed With -- [...] (Interventions Implemented as Appropriate) 11/25/17 0401 11/28/17 0977 Coping/Psychosocial Plan Of Care Reviewed With -- [...] in pain. PRN dilaudid given in the flame hardening machine operator for pain as well. 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 care facility (specify);detention (specify) Anticipated Changes Related to Illness none Living Environment Transportation Available family or friend will provide;ambulance;van, wheelchair accessible Activity/Self Care Review of Systems Equipment Currently Used at Home none Goal: Interdisciplinary Rounds/Family Conf Outcome: Ongoing (Interventions Implemented as Appropriate) 11/23/172133 Interdisciplinary Rounds/Family Conf Participants nursing;occupational therapy;physical therapy;physician;patient;social work/services;dietitian/nutrition services;leather case finisher Problem: Skin Integrity Impairment, Risk/Actual (Adult) Goal: [...] Outcome: Ongoing (Interventions Implemented as Appropriate) 11/25/17 04011/25/172048 Coping/Psychosocial Plan Of Care Reviewed With -- [...] facility;rehabilitation facility;nursing facility, skilled;nursing facility, basic;adult foster care/detention Current Discharge Risk chronically ill;cognitively impaired;dependent with mobility/activities of daily living;physical impairment Discharge Disposition still a patient Current Health Outpatient/Agency/Support Group Needs assisted living facility (specify);long term facility (specify);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 acute care facility (specify);detention (specify) Anticipated Changes Related to Illness none Living Environment Transportation Available family or friend will provide;ambulance;van, wheelchair accessible Activity/Self Care Review of Systems Equipment Currently Used at Home none Goal: Interdisciplinary Rounds/Family Conf Outcome: Ongoing (Interventions Implemented as Appropriate) 11/23/17 2134 Interdisciplinary Rounds/Family Conf Participants nursing;occupational therapy;physical therapy;physician;patient;social work/services;dietitian/nutrition services;leather case finisher Problem: Skin Integrity Impairment, Risk/Actual (Adult) Goal: [...] FWW and frequent cues Anticipated Discharge Disposition: long term facility (could go to handicap accesible detention with assistance) [facility] PTA Pager: [phone] Inpatient Physical Therapy 11/25/17 1030 Rehab Evaluation [...] (frequently reported no pain) Bed Mobility Assessment/Treatment Qblexm-mn-Ghu Letcher (Bed Mobility) moderate assist (50% patient effort) Igi-ey-Ubeszs Letcher (Bed Mobility) minimum assist (75% patient effort) Impairments (Bed Mobility) vision impaired Comment (Bed Mobility) Extra time required, able to reposition himself in bed Transfer Assessment/Treatment Bed-Chair Letcher (Transfers) moderate assist (50% patient effort);2 person assist required Chair-Bed Letcher (Transfers) moderate assist (50% patient effort);2 person assist required Mgu-Qzlmv-Nxb Assistive Device (Transfers) (B hand hold) Letcher (Sit-Stand Transfers) contact guard assist Letcher (Stand-Sit Transfers) contact guard assist Odd-Npmlg-Wxk Assistive Device (Transfers) (// bars) Letcher (Toilet Transfers) minimum assist (75% patient effort);2 [...] for any period of time Gait Assessment/Treatment Letcher (Gait) contact guard assist;2 person assist required [...] all bed mobility activities Bed Mobility Goal, Letcher Level moderate assist (50% patient effort) Bed Mobility Goal, Outcome Achieved goal ongoing Gait Training Goal Gait Training Goal, Date Established 09/09/17 Gait Training Goal, Time to Achieve by discharge Gait Training Goal, Letcher Level minimum assist (75% patient effort) Gait Training Goal, Assist Device walker, rolling Gait Training Goal, Distance to Achieve 15 ft Gait Training Goal, Outcome goal ongoing Transfer Training Goal Transfer Training Goal, Date Established 09/09/17 Transfer Training Goal, Time to Achieve by discharge Transfer Training Goal, Activity Type hkt-pw-xvyga/riteo-vv-rkz;ppo-tf-gciyz/nzdhz-uw-ngv Transfer Train Goal, Letcher Level minimum assist (75% patient effort) Transfer Training Goal, Assist Device walker, rolling Transfer Training Goal, Outcome goal ongoing Physical Therapy Goal PT Goal, Date Established 09/09/17 PT Goal, Time to Achieve by discharge PT Goal, Activity Type Pt will propel self in w/c household distances PT Goal, Letcher Level set up required;supervision required PT Goal, Outcome goal ongoing Clinical Impression Therapy Frequency 2-4 times/wk Anticipated Discharge Disposition long term facility (could go to handicap accesible detention with assistance) * Plan of Care - [...] sitter. Pt was agitated and restless from [id number] and then seemed to calm down and [...] facility;rehabilitation facility;nursing facility, skilled;nursing facility, basic;adult foster care/detention Current Discharge Risk chronically ill;cognitively impaired;dependent with mobility/activities of daily living;physical impairment Discharge Disposition still a patient Current Health Outpatient/Agency/Support Group Needs assisted living facility (specify);long term facility (specify);group home acute care facility (specify);detention (specify) Anticipated Changes Related to Illness none Living Environment Transportation Available family or friend will provide;ambulance;van, wheelchair accessible Activity/Self Care Review of Systems Equipment Currently Used at Home none Goal: Interdisciplinary Rounds/Family Conf Outcome: Ongoing (Interventions Implemented as Appropriate) 11/23/17 2134 Interdisciplinary Rounds/Family Conf Participants nursing;occupational therapy;physical therapy;physician;patient;social work/services;dietitian/nutrition services;leather case finisher Problem: Skin Integrity Impairment, Risk/Actual (Adult) Goal: [...] net bed in use. L hip incisionC/D/I, PREP PERSON. Will continue to monitor and await placement. [...] Outcome: Ongoing (Interventions Implemented as Appropriate) 11/23/17 5404 Coping/Psychosocial Plan Of Care Reviewed With patient;caregiver;daughter;family;guardian;friend [...] Of Care Reviewed With patient;caregiver;sibling;durable power of immigration attorney;guardian;family Plan of Care Review Progress progress [...] all shift, and clinical care coordinator from detention at bedside. Patient extremely agitated all shift, [...] diagnosis and active problem list. RN and POWER PLANT ENGINEER's state noskin issues at this time. Wound [...] Please contact ANIKET ANDERS RN on pager [phone] or the wound care team at [phone] or pager [phone] with skin and wound care concerns or [...] bedside. Safety maintained. Will continue to karoline taylor & notify of any changes. PLAN MOVING FORWARD: PT/OT [...] (Interventions Implemented as Appropriate) 11/17/17 0811/17/17 190 Restraint Interventions Safety Promotion/Fall Prevention -- safety [...] Assessment Outcome: Ongoing (Interventions Implemented as Appropriate) 11/05/174 11/05/17181811/17/171827 Discharge Needs Assessment Concerns To Be Addressed -- -- discharge planning concerns;coping/stress concerns;cognitive/perceptual concerns Readmission Within The Last 30 Days -- no previous admission in last 30 days -- Equipment Needed After Discharge (no specialty bed) -- -- Discharge Facility/Level Of Care Needs -- adult foster care/detention -- Current Discharge Risk -- cognitively impaired;physical impairment -- Discharge Disposition -- still a patient -- Current Health Outpatient/Agency/Support Group Needs -- detention (specify) -- Anticipated Changes Related to Illness -- none -- Living Environment Transportation Available -- car -- Activity/Self Care Review of Systems Equipment Currently Used at Home -- none -- * Plan of Care - Herve Chambers RN - 11/17/2017 6:55 PM EDT Problem: Patient Care Overview Goal: Discharge Needs Assessment Outcome: Ongoing (Interventions Implemented as Appropriate) 05/14/18 1828 Discharge Needs Assessment Concerns To Be [...] fluid intake overnight, PRN miralax administered (see SEP). Sitter at bedside. 4 side rail pt [...] Facility/Level Of Care Needs -- adult foster care/detention Current Discharge Risk -- cognitively impaired;physical impairment Discharge Disposition -- still a patient Current Health Outpatient/Agency/Support Group Needs -- detention (specify) Anticipated Changes Related to Illness -- [...] Facility/Level Of Care Needs -- adult foster care/detention Current Discharge Risk -- cognitively impaired;physical impairment Discharge Disposition -- still a patient Current Health Outpatient/Agency/Support Group Needs -- detention (specify) Anticipated Changes Related to Illness -- [...] 2 assist and FWW Anticipated Discharge Disposition: long term facility (could go to handicap accesible detention with assistance) [facility] PTA Pager: [phone] Inpatient Physical Therapy 11/12/17 1040 Rehab Evaluation [...] no pain when asked) Bed Mobility Assessment/Treatment Ffinfp-lw-Wva Letcher (Bed Mobility) moderate assist (50% patient effort) Rep-cw-Dxzimc Letcher (Bed Mobility) minimum assist (75% patient effort) [...] walker was not available Transfer Assessment/Treatment Bed-Chair Letcher (Transfers) minimum assist (75% patient effort);2 person assist required Chair-Bed Letcher (Transfers) maximum assist (25% patient effort);2 person assist required Ehu-Piley-Yes Assistive Device (Transfers) rolling walker Letcher (Sit-Stand Transfers) minimum assist (75% patient effort);2 person assist required Letcher (Stand-Sit Transfers) minimum assist (75% patient effort);2 person assist required Wrb-Oohdn-Jlo Assistive Device (Transfers) rolling walker Letcher (Toilet Transfers) minimum assist (75% patient effort) [...] placed in front of him Gait Assessment/Treatment Letcher (Gait) minimum assist (75% patient effort) Assistive [...] all bed mobility activities Bed Mobility Goal, Letcher Level moderate assist (50% patient effort) Bed Mobility Goal, Outcome Achieved goal ongoing Gait Training Goal Gait Training Goal, Date Established 09/09/17 Gait Training Goal, Time to Achieve by discharge Gait Training Goal, Letcher Level minimum assist (75% patient effort) Gait Training Goal, Assist Device walker, rolling Gait Training Goal, Distance to Achieve 15 ft Gait Training Goal, Outcome goal ongoing Transfer Training Goal Transfer Training Goal, Date Established 09/09/17 Transfer Training Goal, Time to Achieve by discharge Transfer Training Goal, Activity Type pof-ny-vjqnp/usgdu-tj-fhx;gyh-rk-lwqpl/iespn-xz-xni Transfer Train Goal, Letcher Level minimum assist (75% patient effort) Transfer Training Goal, Assist Device walker, rolling Transfer Training Goal, Outcome goal ongoing Physical Therapy Goal PT Goal, Date Established 09/09/17 PT Goal, Time to Achieve by discharge PT Goal, Activity Type Pt will propel self in w/c household distances PT Goal, Letcher Level set up required;supervision required PT Goal, Outcome goal ongoing Clinical Impression Therapy Frequency 2-4 times/wk Anticipated Discharge Disposition long term facility (could go to handicap accesible detention with assistance) * Plan of Care - [...] Facility/Level Of Care Needs -- adult foster care/detention Current Discharge Risk -- cognitively impaired;physical impairment Discharge Disposition -- still a patient Current Health Outpatient/Agency/Support Group Needs -- detention (specify) Anticipated Changes Related to Illness -- [...] down around 2200 with a restful night. Incisions??PREP PERSON and well-approximated/healed. Sitter??at bedside throughout shift. Patient [...] -- Current Health Outpatient/Agency/Support Group Needs -- detention (specify) -- Anticipated Changes Related to Illness none -- -- Living Environment Transportation Available -- car (caregiver from detention) -- Activity/Self Care Review of Systems Equipment Currently Used at Home -- none -- ? 10/03/17 1654 ? Discharge Needs Assessment ? Concerns To Be Addressed -- ? Readmission Within The Last 30 Days -- ? Equipment Needed After Discharge -- ? Discharge Facility/Level Of Care Needs adult foster care/detention ? Current Discharge Risk -- ? Discharge [...] shift but slept well since 0200. Incisions PREP PERSON andwell-approximated/healed. Sitter??at bedside throughout shift. Patient incontinent [...] Plan of Care Review ? 10/03/17 0510 10/03/17899 Coping/Psychosocial Plan Of Care Reviewed With -- [...] -- Current Health Outpatient/Agency/Support Group Needs -- detention (specify) -- Anticipated Changes Related to Illness none -- -- Living Environment Transportation Available -- car (caregiver from detention) -- Activity/Self Care Review of Systems Equipment Currently Used at Home -- none -- ? 10/03/17 1654 ? Discharge Needs Assessment ? Concerns To Be Addressed -- ? Readmission Within The Last 30 Days -- ? Equipment Needed After Discharge -- ? Discharge Facility/Level Of Care Needs adult foster care/detention ? Current Discharge Risk -- ? Discharge [...] SUMMARY: Patient progressing at this time. VSS. Fish Machine Feeder at bedside continuously this shift. Urinary incontinence [...] self care tasks Anticipated Discharge Disposition: (P) long term facility Pager: [phone] ZULMA Vargas 11/07/2017 Occupational Therapy Rehabilitation Department [...] time;needs repetition Bed Mobility Assessment/Treatment Roll Right Letcher (Bed Mobility) independent Transfer Assessment/Treatment Letcher (Sit-Stand Transfers) minimum assist (75% patient effort) Letcher (Stand-Sit Transfers) minimum assist (75% patient effort) Quc-Kohlm-Ldu Assistive Device (Transfers) rolling walker Pls-Dulma-Dnj Assistive Device (Transfers) rolling walker Chair-Bed Letcher (Transfers) minimum assist (75% patient effort);verbal cues required Upper Body Dressing Assessment/Training Position (UB Dressing) supported sitting Letcher Level (UB Dressing) set up required Comment (UB Dressing) to trent kramer Lower Body Dressing Assessment/Training Position (LB Dressing) sitting;standing Letcher Level (LB Dressing) set up required Impairments (LB Dressing) balance impaired;vision impaired;pain;ROM (range of motion) decreased Comment (LB Dressing) to trent hall Grooming Assessment/Training Position (Grooming) supported sitting Letcher Level (Grooming) set up required Comment (Grooming) [...] wheelchair, commode, shower seat) Anticipated Discharge Disposition long term facility * Plan of Care - Louis [...] transfers with 2 assist Anticipated Discharge Disposition: long term facility (could go to handicap accesible detention with assistance) [facility] PTA Pager: [phone] Inpatient Physical Therapy 11/07/17 1030 Rehab Evaluation [...] Assessment/Treatment Assistive Device (Bed Mobility) bed rails Wtctna-sk-Xrv Letcher (Bed Mobility) minimum assist (75% patient effort) Safety Issues (Bed Mobility) decreased use of legs for bridging/pushing Impairments (Bed Mobility) vision impaired Comment (Bed Mobility) HOB slightly elevated, extra time required Transfer Assessment/Treatment Bed-Chair Letcher (Transfers) moderate assist (50% patient effort);2 person assist required Chair-Bed Letcher (Transfers) moderate assist (50% patient effort);2 person assist required Mxv-Ozhxb-Uqf Assistive Device (Transfers) (B hand hold) Letcher (Sit-Stand Transfers) minimum assist (75% patient effort);2 person assist required Letcher (Stand-Sit Transfers) minimum assist (75% patient effort);2 person assist required Uhu-Ubcen-Nrr Assistive Device (Transfers) rolling walker Letcher (Toilet Transfers) moderate assist (50% patient effort);2 person assist required Assistive Device (Toilet Transfers) bedside commode;rolling walker Maintain Weight Bearing Status (Transfers) able to maintain weight bearing status Safety Issues (Transfers) balance decreased during turns;sequencing ability decreased;weight-shifting ability decreased;loses balance backward Impairments (Transfers) balance impaired;strength decreased;vision impaired Comment (Transfers) transferred from various surfaces, difficulty turning, poor eccentric control when sitting Gait Assessment/Treatment Letcher (Gait) minimum assist (75% patient effort);2 person [...] all bed mobility activities Bed Mobility Goal, Letcher Level moderate assist (50% patient effort) Bed Mobility Goal, Outcome Achieved goal ongoing Gait Training Goal Gait Training Goal, Date Established 09/09/17 Gait Training Goal, Time to Achieve by discharge Gait Training Goal, Letcher Level minimum assist (75% patient effort) Gait Training Goal, Assist Device walker, rolling Gait Training Goal, Distance to Achieve 15 ft Gait Training Goal, Outcome goal ongoing Transfer Training Goal Transfer Training Goal, Date Established 09/09/17 Transfer Training Goal, Time to Achieve by discharge Transfer Training Goal, Activity Type khd-ip-xkcdg/ljuoe-id-yxh;meq-cs-zvows/ehnvi-cm-qui Transfer Train Goal, Letcher Level minimum assist (75% patient effort) Transfer Training Goal, Assist Device walker, rolling Transfer Training Goal, Outcome goal ongoing Physical Therapy Goal PT Goal, Date Established 09/09/17 PT Goal, Time to Achieve by discharge PT Goal, Activity Type Pt will propel self in w/c household distances PT Goal, Letcher Level set up required;supervision required PT Goal, Outcome goal ongoing Clinical Impression Therapy Frequency 2-4 times/wk Anticipated Discharge Disposition long term facility (could go to handicap accesible detention with assistance) * Plan of Care - [...] Goal: Fall Prevention-Safe Patient Handling ? 10/03/17 0910/03/17 2148 Restraint Interventions Safety Promotion/Fall Prevention activity [...] -- Current Health Outpatient/Agency/Support Group Needs -- detention (specify) -- Anticipated Changes Related to Illness none -- -- Living Environment Transportation Available -- car (caregiver from detention) -- Activity/Self Care Review of Systems Equipment Currently Used at Home -- none -- ? 10/03/17 1654 ?? Discharge Needs Assessment ?? Concerns To Be Addressed -- ?? Readmission Within The Last 30 Days -- ?? Equipment Needed After Discharge -- ?? Discharge Facility/Level Of Care Needs adult foster care/detention ?? Current Discharge Risk -- ?? Discharge [...] Fall Prevention-Safe Patient Handling ?? 10/03/17 0900 10/03/173 Restraint Interventions Safety Promotion/Fall Prevention activity supervised;fall [...] -- Current Health Outpatient/Agency/Support Group Needs -- detention (specify) -- Anticipated Changes Related to Illness none -- -- Living Environment Transportation Available -- car (caregiver from detention) -- Activity/Self Care Review of Systems Equipment Currently Used at Home -- none -- ?? 10/03/17 1654 Discharge Needs Assessment Concerns To Be Addressed -- Readmission Within The Last 30 Days -- Equipment Needed After Discharge -- Discharge Facility/Level Of Care Needs adult foster care/detention Current Discharge Risk -- Discharge Disposition -- [...] EVALUATION: Progress Goal: Fall Prevention-Safe Patient Handling 11/05/1792911/05/172027 Restraint Interventions Safety Promotion/Fall Prevention -- activity [...] Facility/Level Of Care Needs -- adult foster care/detention Current Discharge Risk -- cognitively impaired;physical impairment Discharge Disposition -- still a patient Current Health Outpatient/Agency/Support Group Needs -- detention (specify) Anticipated Changes Related to Illness -- [...] outcome * Plan of Care - Tomás Amaro RN - 11/05/2017 6:21 PM EDT Problem: [...] Marcano at bedside, call morris within reach, clinical [...] pivot with 2 assist Anticipated Discharge Disposition: long term facility (could go to handicap accesible detention with assistance) [facility] PTA Pager: [phone] Inpatient Physical Therapy 11/05/17 1004 Rehab Evaluation Document Type therapy note (daily [...] Assessment/Treatment Assistive Device (Bed Mobility) bed rails Rcsdau-sw-Jbg Letcher (Bed Mobility) supervision required Comment (Bed Mobility) HOB elevated, steady in sitting Transfer Assessment/Treatment Bed-Chair Letcher (Transfers) minimum assist (75% patient effort);moderate assist (50% patienteffort);2 person assist required Chair-Bed Letcher (Transfers) minimum assist (75% patient effort);moderate assist (50% patienteffort);2 person assist required Gvg-Tlowv-Sfj Assistive Device (Transfers) rolling walker Letcher (Sit-Stand Transfers) minimum assist (75% patient effort);2 person assist required Letcher (Stand-Sit Transfers) minimum assist (75% patient effort);2 person assist required Vhv-Xmcjj-Ogr Assistive Device (Transfers) rolling walker Maintain Weight Bearing Status (Transfers) able to maintain weight bearing status Safety Issues (Transfers) balance decreased during turns;sequencing ability decreased;step length decreased;weight-shifting ability decreased Impairments (Transfers) balance impaired;strength decreased Comment (Transfers) Step by step cues provided, slightly unsteady and leaning toward the L in standing Gait Assessment/Treatment Letcher (Gait) minimum assist (75% patient effort);moderate assist [...] all bed mobility activities Bed Mobility Goal, Letcher Level moderate assist (50% patient effort) Bed Mobility Goal, Outcome Achieved goal ongoing Gait Training Goal Gait Training Goal, Date Established 09/09/17 Gait Training Goal, Time to Achieve by discharge Gait Training Goal, Letcher Level minimum assist (75% patient effort) Gait Training Goal, Assist Device walker, rolling Gait Training Goal, Distance to Achieve 15 ft Gait Training Goal, Outcome goal ongoing Transfer Training Goal Transfer Training Goal, Date Established 09/09/17 Transfer Training Goal, Time to Achieve by discharge Transfer Training Goal, Activity Type ozo-tr-qkqcc/khxth-fs-anm;jyo-bl-lzsqq/jjtnv-fk-zaa Transfer Train Goal, Letcher Level minimum assist (75% patient effort) Transfer Training Goal, Assist Device walker, rolling Transfer Training Goal, Outcome goal ongoing Physical Therapy Goal PT Goal, Date Established 09/09/17 PT Goal, Time to Achieve by discharge PT Goal, Activity Type Pt will propel self in w/c household distances PT Goal, Letcher Level set up required;supervision required PT Goal, [...] Discharge Facility/Level Of Care Needs adult foster care/detention Current Discharge Risk cognitively impaired;physical impairment Discharge [...] toward outcome * Plan of Care - Lroi Tolliver RN - 11/04/2017 3:12 PM EDT [...] clear yellow urine. Incision remains c/d/i and PREP PERSON. Will continue to monitor. PLAN MOVING FORWARD: [...] with assistance of 2. Anticipated Discharge Disposition: long term facility, other (see comments) (vs. 27/01 assistance, PT/OT) Pager: [phone] SKYLA AYALA OT 11/04/2017 Occupational Therapy Rehabilitation Department 11/04/17 5688 Rehab Evaluation Document Type therapy note (daily [...] Mobility) bed rails (HOB slightly raised ) Zbykog-dy-Hwp Letcher (Bed Mobility) minimum assist (75% patient effort);verbal cues required Impairments (Bed Mobility) pain;flexibility decreased (increased time, slow transition ) Comment (Bed Mobility) able to sit eob with supervision Roll Left Letcher (Bed Mobility) minimum assist (75% patient effort);verbal cues required (tactile cues ) Roll Right Letcher (Bed Mobility) minimum assist (75% patient effort);verbal cues required (tactile cues) Transfer Assessment/Treatment Letcher (Sit-Stand Transfers) minimum assist (75% patient effort);verbal cues required;contactguard assist (1-2, tactile cues) Letcher (Stand-Sit Transfers) moderate assist (50% patient effort);verbal cues required (as tries to sit prematurely before squared up) Impairments (Transfers) balance impaired;strength decreased;other (see comments) (restricted weight bearing, poor safety awareness) Comment (Transfers) pivoted from bed to w/c. Got up to w/c to head off floor with caregiver to get hair cut. Bed-Chair Letcher (Transfers) minimum assist (75% patient effort);verbal cues required;contactguard assist (1-2) Yhs-Nkntq-Cbd Assistive Device (Transfers) rolling walker Upper Body Dressing Assessment/Training Position (UB Dressing) supported sitting (in w/c) Letcher Level (UB Dressing) set up required;verbal cues required;minimum assist (75% patient effort) Impairments (UB Dressing) balance impaired;other (see comments);vision impaired (orientating item, ) Comment (UB Dressing) help to orient shirt for Pt and Pt was able to don arms/head through and pulldown with prompts seated in w/c. Lower Body Dressing Assessment/Training Position (LB Dressing) supine Letcher Level (LB Dressing) set up required;verbal cues [...] of caregiver. Toileting Assessment/Training Position (Toileting) supine Letcher Level (Toileting) minimum assist (75% patient effort);set [...] commode, shower seat ) Anticipated Discharge Disposition long term facility;other (see comments) (vs. 27/01 assistance, PT/OT) [...] Pt assisted to bedside commode during shift. Fish Machine Feeder at bedside. Will continue to monitor. PLAN [...] intermittently assisted to bedside commode during shift. Fish Machine Feeder at bedside. Will continue to monitor. PLAN MOVING FORWARD: Pain/spasm control Ongoing D/C planning INDIVIDUALIZED FALL PREVENTION INTERVENTIONS: Patient-specific fall risk factors per assessment: [current deficits]: Cognitive impairment, impaired mobility Assistance [level of assistance required for transfers and ambulation]: 1-2 assist Supervision [direct monitoring required during toileting and ADLs]: Hands on Surveillance [continuous indirect monitoring]: Fish Machine Feeder at bedside, hourly rounding, NKE CPG GOAL [...] go outside with supervision from staff and coal conveyor operator. Fish Machine Feeder at bedside throughout shift. Pt. Assisted to [...] with 1-2 assist, FWW Anticipated Discharge Disposition: long term facility (could go to handicap accesible detention with assistance) [facility] PTA Pager: [phone] Inpatient Physical Therapy 10/31/17 1230 Rehab Evaluation Document Type therapy note (daily note) Total Evaluation Minutes, Physical Therapy 30 (TE-F x 2) Patient Effort excellent Symptoms Noted During/After Treatment none General Information Patient/Family/Caregiver Comments/Observations Minimal yelling today, followed direction well Precautions/Restrictions fall Treatment Number PT 8 Pain Scale/Rating Pain Assessment Scale Faces (Roberson-Carter FACES Pain Rating Scale) Pain Level 0 Transfer Assessment/Treatment Letcher (Sit-Stand Transfers) minimum assist (75% patient effort) Letcher (Stand-Sit Transfers) moderate assist (50% patient effort) Wvd-Nmmuh-Lmt Assistive Device (Transfers) rolling walker (// bars) Maintain Weight Bearing Status (Transfers) able to maintain weight bearing status Safety Issues (Transfers) step length decreased;weight-shifting ability decreased Impairments (Transfers) strength decreased Comment (Transfers) Poor eccentric control when sitting Gait Assessment/Treatment Letcher (Gait) minimum assist (75% patient effort);2 person [...] all bed mobility activities Bed Mobility Goal, Letcher Level moderate assist (50% patient effort) Bed Mobility Goal, Outcome Achieved goal ongoing Gait Training Goal Gait Training Goal, Date Established 09/09/17 Gait Training Goal, Time to Achieve by discharge Gait Training Goal, Letcher Level minimum assist (75% patient effort) Gait Training Goal, Assist Device walker, rolling Gait Training Goal, Distance to Achieve 15 ft Gait Training Goal, Outcome goal ongoing Transfer Training Goal Transfer Training Goal, Date Established 09/09/17 Transfer Training Goal, Time to Achieve by discharge Transfer Training Goal, Activity Type cyc-id-pxkar/kumim-nm-uve;yky-bg-ijjaa/onxim-gu-vah Transfer Train Goal, Letcher Level minimum assist (75% patient effort) Transfer Training Goal, Assist Device walker, rolling Transfer Training Goal, Outcome goal ongoing Physical Therapy Goal PT Goal, Date Established 09/09/17 PT Goal, Time to Achieve by discharge PT Goal, Activity Type Pt will propel self in w/c household distances PT Goal, Letcher Level set up required;supervision required PT Goal, [...] screaming and moaning; slept only from approximately [id number]. made aware. Pt denied pain. Exhausted all [...] Of Care Needs -- -- adult foster care/detention Current Discharge Risk -- cognitively impaired;physical impairment -- Discharge Disposition -- still a patient -- Current Health Outpatient/Agency/Support Group Needs -- detention (specify) -- Anticipated Changes Related to Illness none -- -- Living Environment Transportation Available -- car (caregiver from detention) -- Activity/Self Care Review of Systems Equipment [...] Ongoing (Interventions Implemented as Appropriate) 10/24/17 0125 10/28/172199 Coping/Psychosocial Plan Of Care Reviewed With -- [...] Of Care Needs -- -- adult foster care/detention Current Discharge Risk -- cognitively impaired;physical impairment -- Discharge Disposition -- still a patient -- Current Health Outpatient/Agency/Support Group Needs -- detention (specify) -- Anticipated Changes Related to Illness none -- -- Living Environment Transportation Available -- car (caregiver from detention) -- Activity/Self Care Review of Systems Equipment [...] Pt went around facility w/ caregiver and POWER PLANT ENGINEER in wheelchair. Less than 2000ml given throughout day. See Doc Flowsheet for details. Incontinence care given post urine and stool occurrence. Will continue to monitor and help patient reach d/c goals. PLAN MOVING FORWARD: Pain control Mobilize out of bed. D/c planning INDIVIDUALIZED FALL PREVENTION: Patient is currently a high risk to Fall. parachute officer at bedside or one-to-one monitoring in place [...] Of Care Needs -- -- adult foster care/detention Current Discharge Risk -- cognitively impaired;physical impairment -- Discharge Disposition -- still a patient -- Current Health Outpatient/Agency/Support Group Needs -- detention (specify) -- Anticipated Changes Related to Illness none -- -- Living Environment Transportation Available -- car (caregiver from detention) -- Activity/Self Care Review of Systems Equipment [...] Of Care Needs -- -- adult foster care/detention Current Discharge Risk -- cognitively impaired;physical impairment -- Discharge Disposition -- still a patient -- Current Health Outpatient/Agency/Support Group Needs -- detention (specify) -- Anticipated Changes Related to Illness none -- -- Living Environment Transportation Available -- car (caregiver from detention) -- Activity/Self Care Review of Systems Equipment [...] (Interventions Implemented as Appropriate) 10/24/17 0125 10/26/17 213 Coping/Psychosocial Plan Of Care Reviewed With -- patient;other (see comments) (POWER PLANT ENGINEER/sitter) Plan of Care Review Progress no change [...] indirect monitoring]: Jeet, purposeful rounding, NKE, sitter Patient-specific fall prevention [...] Of Care Needs -- -- adult foster care/detention Current Discharge Risk -- cognitively impaired;physical impairment -- Discharge Disposition -- still a patient -- Current Health Outpatient/Agency/Support Group Needs -- detention (specify) -- Anticipated Changes Related to Illness none -- -- Living Environment Transportation Available -- car (caregiver from detention) -- Activity/Self Care Review of Systems Equipment [...] hour with clinical care coordinator. Remains incontinent. parachute officer at bedside.Will continue to monitor. PLAN MOVING [...] Handling Outcome: Ongoing (Interventions Implemented as Appropriate) 10/24/175 10/25/17 1100 10/25/17 1816 Restraint Interventions Safety [...] Procedure Laterality Date ??? PRO OPEN ORACLE PROGRAMMER FIX ACETABULAR FX Left 09/04/2017 @OPEN TREATMENT, ACETABULAR FX (WRVU 25.41) performed by Amy Lance MD at [facility] MAIN OR Patient has following [...] self care tasks Anticipated Discharge Disposition: (P) long term facility Pager: [phone] ZULMA Vargas 10/27/2017 Occupational Therapy Rehabilitation Department [...] Scale) Pain Level 5 Bed Mobility Assessment/Treatment Bbsgtd-pf-Dvc Letcher (Bed Mobility) verbal cues required (extended time) Transfer Assessment/Treatment Letcher (Sit-Stand Transfers) contact guard assist Letcher (Stand-Sit Transfers) contact guard assist Vmb-Bzuog-Xri Assistive Device (Transfers) rolling walker Bed-Chair Letcher (Transfers) minimum assist (75% patient effort);verbal cues required Wheelchair Training/Management Transfer Type (Wheelchair) stand pivot transfer Propulsion Training (Wheelchair) forward propulsion Distance Propelled in Feet (Wheelchair) 50ft Lower Body Dressing Assessment/Training Position (LB Dressing) sitting (supine in bed) Letcher Level (LB Dressing) conditional independence Impairments (LB [...] Therapy Frequency 2-4 times/wk Anticipated Discharge Disposition long term facility * Med Student Progress Note - Bonnie Velásquez 10/25/2017 7:42 AM EDT Hospital Medicine Attending [...] Care: FULL CODE Team Pager( Coverage 27/01): #[phone] PCP: NAKIA Cifuentes [phone] Bonnie Velásquez 10/25/2017 Pager [phone] * Plan of Care - Ren Walters [...] all self care tasks Anticipated Discharge Disposition: long term facility Pager: [phone] ZULMA Vargas 10/25/2017 Occupational Therapy Rehabilitation Department 10/24/17 9437 Rehab Evaluation Document Type therapy note (daily [...] time;needs cueing;needs increased time;needs repetition Transfer Assessment/Treatment Letcher (Sit-Stand Transfers) contact guard assist Letcher (Stand-Sit Transfers) contact guard assist Comment (Transfers) pt did well maintaining his precautions Bed-Chair Letcher (Transfers) minimum assist (75% patient effort) Qmz-Zgtop-Hss Assistive Device (Transfers) rolling walker Chair-Bed Letcher (Transfers) minimum assist (75% patient effort) Lower Body Dressing Assessment/Training Position (LB Dressing) sitting Letcher Level (LB Dressing) set up required Impairments (LB Dressing) vision impaired Comment (LB Dressing) to don pants Toileting Assessment/Training Position (Toileting) sitting (EOB) Letcher Level (Toileting) set up required Comment (Toileting) [...] Care: FULL CODE Team Pager( Coverage 27/01): #[phone] PCP: NAKIA Cifuentes [phone] Bonnie Velásquez 10/24/2017 Pager [phone] * Plan of Care - Lenore Yates [...] Care: FULL CODE Team Pager( Coverage 27/01): #[phone] PCP: NAKIA Cifuentes [phone] Bonnie Velásquez 10/23/2017 Pager [phone] * Plan of Care - Lenore Yates [...] Medicated with dilaudid 4mg powith good effect. packing attendant in room with patient this shift. 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, cognitively impaired,immobility Assistance [level of assistance required for transfers and ambulation]: Dependent Supervision [direct monitoring required during toileting and ADLs]: Dependent Surveillance [continuous indirect monitoring]: Jeet, russell morris in reach, purposeful rounding, safety deposit clerk Patient-specific fall prevention interventions for sensory deficits [...] pivot transfer 1-2 assist Anticipated Discharge Disposition: long term facility (could go to handicap accesible detention with assistance) [facility] Pager: [phone] Inpatient Physical Therapy 10/22/17 1110 Rehab Evaluation Document Type therapy note [...] Living Environment Comment Pt lives in a detention with 3 other roomates. The fishing line winding machine operator of the detention reports that they have a caregiver there [...] a good distraction from patient. At the detention he tends to wear jeans with no shirt as he tries to rip them off. He is able to communicate intermittently with verbal words. the caregivers help shower anddress him daily. Pain Scale/Rating Pain Assessment Scale Word (verbal rating pain scale) Pain Level (pt reported no pain when asked) Bed Mobility Assessment/Treatment Bvhemr-sm-Oks Letcher (Bed Mobility) minimum assist (75% patient effort) Comment (Bed Mobility) Able to sit edge of bed with supervision Transfer Assessment/Treatment Bed-Chair Letcher (Transfers) maximum assist (25% patient effort) Mhg-Xduoe-Gmy Assistive Device (Transfers) rolling walker Letcher (Sit-Stand Transfers) contact guard assist;minimum assist (75% patient effort) Letcher (Stand-Sit Transfers) contact guard assist Vdg-Dtopw-Lyh Assistive Device (Transfers) (// bars) Letcher (Toilet Transfers) maximum assist (25% patient effort) [...] unsteady, sits early at times Gait Assessment/Treatment Letcher (Gait) minimum assist (75% patient effort) Assistive [...] all bed mobility activities Bed Mobility Goal, Letcher Level moderate assist (50% patient effort) Bed Mobility Goal, Outcome Achieved goal ongoing Gait Training Goal Gait Training Goal, Date Established 09/09/17 Gait Training Goal, Time to Achieve by discharge Gait Training Goal, Letcher Level minimum assist (75% patient effort) Gait Training Goal, Assist Device walker, rolling Gait Training Goal, Distance to Achieve 15 ft Gait Training Goal, Outcome goal ongoing Transfer Training Goal Transfer Training Goal, Date Established 09/09/17 Transfer Training Goal, Time to Achieve by discharge Transfer Training Goal, Activity Type rgi-ff-fzpkt/mavmk-si-ivx;diy-xa-wbexs/vnics-qa-lik Transfer Train Goal, Letcher Level minimum assist (75% patient effort) Transfer Training Goal, Assist Device walker, rolling Transfer Training Goal, Outcome goal ongoing Physical Therapy Goal PT Goal, Date Established 09/09/17 PT Goal, Time to Achieve by discharge PT Goal, Activity Type Pt will propel self in w/c household distances PT Goal, Letcher Level set up required;supervision required PT Goal, Outcome goal ongoing Clinical Impression Therapy Frequency 2-4 times/wk Anticipated Discharge Disposition long term facility (could go to handicap accesible detention with assistance) * Med Student Progress Note - Fretz, Bonnie Emerald - 10/22/2017 7:21 AM EDT Hospital Medicine [...] Care: FULL CODE Team Pager(MD Coverage 27/01): #[phone] PCP: NAKIA Cifuentes [phone] Bonnie Velásquez 10/22/2017 Pager [phone] * Plan of Care - Elsy Mei [...] Ongoing (Interventions Implemented as Appropriate) 10/21/17 0830 10/21/172104 Restraint Interventions Safety Promotion/Fall Prevention -- activity [...] Of Care Needs -- -- adult foster care/detention Current Discharge Risk -- cognitively impaired;physical impairment -- Discharge Disposition -- still a patient -- Current Health Outpatient/Agency/Support Group Needs -- detention (specify) -- Anticipated Changes Related to Illness none -- -- Living Environment Transportation Available -- car (caregiver from detention) -- Activity/Self Care Review of Systems Equipment [...] self care tasks Anticipated Discharge Disposition: (P) long term facility Pager: [phone] ZULMA Vargas 10/21/2017 Occupational Therapy Rehabilitation Department [...] Scale) Pain Level 0 Bed Mobility Assessment/Treatment Dxrjel-yb-Vii Letcher (Bed Mobility) minimum assist (75% patient effort);verbal cues required Vqw-oi-Ljqkud Letcher (Bed Mobility) minimum assist (75% patient effort);verbal cues required Comment (Bed Mobility) difficult arousing pt Clinical Impression Criteria for Skilled Therapeutic Interventions Met yes;treatment indicated Rehab Potential fair, will monitor progress closely Therapy Frequency 2-4 times/wk Anticipated Discharge Disposition long term facility * Plan of Care - Lenore [...] consult regarding this case. Kris Gilbert DMD [phone] * Med Student Progress Note - Bonnie [...] dental input. #Agitation #Sleep Wake Disturbance Pain / hip [...] Care: FULL CODE Team Pager(MD Coverage 27/01): #[phone] PCP: NAKIA Cifuentes [phone] Bonnie Velásquez 10/21/2017 Pager [phone] * Plan of Care - Elsy Mei [...] Of Care Needs -- -- adult foster care/detention Current Discharge Risk -- cognitively impaired;physical impairment -- Discharge Disposition -- still a patient -- Current Health Outpatient/Agency/Support Group Needs -- detention (specify) -- Anticipated Changes Related to Illness none -- -- Living Environment Transportation Available -- car (caregiver from detention) -- Activity/Self Care Review of Systems Equipment [...] Date Resolved No resolved problems to display. [facility] Active Non-Hospital Problems Diagnosis ??? Insomnia ??? [...] Care: FULL CODE Team Pager(MD Coverage 27/01): #[phone] PCP: NAKIA Cifuentes [phone] Bonnie Velásquez 10/20/2017 Pager [phone] * Plan of Care - Dinorah Tate [...] Of Care Needs -- -- adult foster care/detention Current Discharge Risk -- cognitively impaired;physical impairment -- Discharge Disposition -- still a patient -- Current Health Outpatient/Agency/Support Group Needs -- detention (specify) -- Anticipated Changes Related to Illness none -- -- Living Environment Transportation Available -- car (caregiver from detention) -- Activity/Self Care Review of Systems Equipment [...] Appropriate) 10/10/17 1735 Interdisciplinary Rounds/Family Conf Participants family;nursing;patient;physician;leather case finisher (caregiver) Problem: Skin Integrity Impairment, Risk/Actual (Adult) [...] Of Care Needs -- -- adult foster care/detention Current Discharge Risk -- cognitively impaired;physical impairment -- Discharge Disposition -- still a patient -- Current Health Outpatient/Agency/Support Group Needs -- detention (specify) -- Anticipated Changes Related to Illness none -- -- Living Environment Transportation Available -- car (caregiver from detention) -- Activity/Self Care Review of Systems Equipment [...] fluid restriction. Patient had clinical care coordinator [id number] today. Patients pain treated with scheduled and PRN medication,see SEP. Patient got out ofbed and into wheel [...] Care: FULL CODE Team Pager( Coverage 27/01): #[phone] PCP: NAKIA Cifuentes [phone] Bonnie Velásquez 10/18/2017 Pager [phone] * Plan of Care - Alanna Paulino [...] outcome * Med Student Progress Note - Robertomandie Bonnie E - 10/17/2017 7:22 AM EDT Hospital Medicine Attending Daily Progress Note Admit Date: 09/02/2017 Hospital Day 45 days Active Hospital Problems Diagnosis ??? S/P ORIF left acetabulum fracture 09/04/2017 Dr. Lance ??? Postoperative anemia due to acute blood loss ??? Diabetes insipidus ??? Adrenal insufficiency ??? Panhypopituitarism ??? Seizure disorder ??? Hypothyroidism Resolved Hospital Problems Diagnosis Date Resolved No resolved problems to display. [facility] Active Non-Hospital Problems Diagnosis ??? Insomnia ??? [...] Care: FULL CODE Team Pager( Coverage 27/01): #[phone] PCP: NAKIA Cifuentes [phone] Bonnie Velásquez 10/17/2017 Pager [phone] * Plan of Care - Landy Benitez [...] Care: FULL CODE Team Pager(MD Coverage 27/01): #[phone] PCP: NAKIA Cifuentes [phone] Bonnie Velásquez 10/16/2017 Pager [phone] * Plan of Care - Landy Benitez [...] Velásquez Emerald - 10/15/2017 8:40 AM EDT [facility] Medicine Attending Daily Progress Note Admit [...] Care: FULL CODE Team Pager( Coverage 27/01): #[phone] PCP: NAKIA Cifuentes [phone] Bonnie Velásquez 10/15/2017 Pager [phone] * Plan of Care - Lori Ordaz [...] Bonnie Velásquez - 10/14/2017 7:48 AM EDT [facility] Medicine Attending Daily Progress Note Admit [...] Care: FULL CODE Team Pager( Coverage 27/01): #[phone] PCP: NAKIA Cifuentes [phone] Bonnie Velásquez 10/14/2017 Pager [phone] * Plan of Care - Lori Ordaz [...] self care tasks Anticipated Discharge Disposition: (P) long term facility Pager: [phone] ZULMA Vargas 10/14/2017 Occupational Therapy Rehabilitation Department [...] Assessment/Treatment Assistive Device (Bed Mobility) bed rails Gwblis-sk-Jde Letcher (Bed Mobility) minimum assist (75% patient effort);verbal cues required Xdq-wa-Jntezz Letcher (Bed Mobility) supervision required;verbal cues required Impairments (Bed Mobility) pain;flexibility decreased Comment (Bed Mobility) extended time required Transfer Assessment/Treatment Letcher (Sit-Stand Transfers) moderate assist (50% patient effort) Letcher (Stand-Sit Transfers) moderate assist (50% patient effort) Impairments (Transfers) flexibility decreased;strength decreased Comment (Transfers) pt able to show which leg is non-weight bearing but unable to maintain it today Bed-Chair Letcher (Transfers) maximum assist (25% patient effort);verbal cues required Yjq-Hqqco-Vkh Assistive Device (Transfers) rolling walker Chair-Bed Letcher (Transfers) maximum assist (25% patient effort);verbal cues required Gait Assessment/Treatment Letcher (Gait) minimum assist (75% patient effort) Distance in Feet (Gait) 3ft Maintain Weight Bearing Status (Gait) cues to maintain weight bearing status;assist to maintain weight bearing status;unable to maintain weight bearing status Lower Body Dressing Assessment/Training Position (LB Dressing) (supine in bed) Letcher Level (LB Dressing) minimum assist (75% patient effort) Impairments (LB Dressing) vision impaired;flexibility decreased Comment (LB Dressing) to don pants, min A to thread L feet in Grooming Assessment/Training Position (Grooming) sitting (in WC) Letcher Level (Grooming) set up required;verbal cues required [...] Therapy Frequency 2-4 times/wk Anticipated Discharge Disposition long term facility * Plan of Care - Echo [...] -- Current Health Outpatient/Agency/Support Group Needs -- detention (specify) -- Anticipated Changes Related to Illness none -- -- Living Environment Transportation Available -- car (caregiver from detention) -- Activity/Self Care Review of Systems Equipment Currently Used at Home -- none -- 10/03/17 1654 Discharge Needs Assessment Concerns To Be Addressed -- Readmission Within The Last 30 Days -- Equipment Needed After Discharge -- Discharge Facility/Level Of Care Needs adult foster care/detention Current Discharge Risk -- Discharge Disposition -- Current Health Outpatient/Agency/Support Group Needs -- Anticipated Changes Related to Illness -- Living Environment Transportation Available -- Activity/Self Care Review of Systems Equipment Currently Used at Home -- Goal: Interdisciplinary Rounds/Family Conf 10/10/17 6126 Interdisciplinary Rounds/Family Conf Participants family;nursing;patient;physician;leather case finisher (caregiver) Problem: Skin Integrity Impairment, Risk/Actual (Adult) Goal: Skin Integrity/Wound Healing Patient will demonstrate the desired outcomes by discharge/transition of care. 04/08/18 0344 Skin Integrity Impairment, Risk/Actual (Adult) Skin [...] -- Current Health Outpatient/Agency/Support Group Needs -- detention (specify) -- Anticipated Changes Related to Illness none -- -- Living Environment Transportation Available -- car (caregiver from detention) -- Activity/Self Care Review of Systems Equipment Currently Used at Home -- none -- 10/03/17 1654 Discharge Needs Assessment Concerns To Be Addressed -- Readmission Within The Last 30 Days -- Equipment Needed After Discharge -- Discharge Facility/Level Of Care Needs adult foster care/detention Current Discharge Risk -- Discharge Disposition -- Current Health Outpatient/Agency/Support Group Needs -- Anticipated Changes Related to Illness -- Living Environment Transportation Available -- Activity/Self Care Review of Systems Equipment Currently Used at Home -- Goal: Interdisciplinary Rounds/Family Conf 10/10/17 1735 Interdisciplinary Rounds/Family Conf Participants family;nursing;patient;physician;leather case finisher (caregiver) Problem: Skin Integrity Impairment, Risk/Actual (Adult) [...] Review Outcome: Ongoing (Interventions Implemented as Appropriate) 10/08/171804 Coping/Psychosocial Plan Of Care Reviewed With patient [...] Ongoing (Interventions Implemented as Appropriate) 10/07/17 1708 10/07/172 Coping/Psychosocial Plan Of Care Reviewed With -- [...] 1-2A with ADL's Surveillance [continuous indirect monitoring]: Jeet Purposeful Rounding, SEBASE Patient-specific fall prevention interventions for sensory deficits [...] alarm on to help maintain patient safety. parachute officer at bedside throughout the shift. Will continue [...] -- Current Health Outpatient/Agency/Support Group Needs -- detention (specify) -- Anticipated Changes Related to Illness none -- -- Living Environment Transportation Available -- car (caregiver from detention) -- Activity/Self Care Review of Systems Equipment Currently Used at Home -- none -- 10/03/17 1654 Discharge Needs Assessment Concerns To Be Addressed -- Readmission Within The Last 30 Days -- Equipment Needed After Discharge -- Discharge Facility/Level Of Care Needs adult foster care/detention Current Discharge Risk -- Discharge Disposition -- [...] -- Current Health Outpatient/Agency/Support Group Needs -- detention (specify) -- Anticipated Changes Related to Illness none -- -- Living Environment Transportation Available -- car (caregiver from detention) -- Activity/Self Care Review of Systems Equipment Currently Used at Home -- none -- 10/03/17 1654 Discharge Needs Assessment Concerns To Be Addressed -- Readmission Within The Last 30 Days -- Equipment Needed After Discharge -- Discharge Facility/Level Of Care Needs adult foster care/detention Current Discharge Risk -- Discharge Disposition -- [...] Goal: Plan of Care Review 10/03/17 0510 10/03/17899 Coping/Psychosocial Plan Of Care Reviewed With -- [...] -- Current Health Outpatient/Agency/Support Group Needs -- detention (specify) -- Anticipated Changes Related to Illness none -- -- Living Environment Transportation Available -- car (caregiver from detention) -- Activity/Self Care Review of Systems Equipment Currently Used at Home -- none -- 10/03/17 1654 Discharge Needs Assessment Concerns To Be Addressed -- Readmission Within The Last 30 Days -- Equipment Needed After Discharge -- Discharge Facility/Level Of Care Needs adult foster care/detention Current Discharge Risk -- Discharge Disposition -- [...] -- Current Health Outpatient/Agency/Support Group Needs -- detention (specify) -- Anticipated Changes Related to Illness none -- -- Living Environment Transportation Available -- car (caregiver from detention) -- Activity/Self Care Review of Systems Equipment Currently Used at Home -- none -- 10/03/17 1654 Discharge Needs Assessment Concerns To Be Addressed -- Readmission Within The Last 30 Days -- Equipment Needed After Discharge -- Discharge Facility/Level Of Care Needs adult foster care/detention Current Discharge Risk -- Discharge Disposition -- [...] (Interventions Implemented as Appropriate) 09/08/17 0403 09/18/17 12509/29/171938 Discharge Needs Assessment Concerns To Be Addressed [...] -- Current Health Outpatient/Agency/Support Group Needs -- detention (specify) -- Anticipated Changes Related to Illness none -- -- Living Environment Transportation Available -- car (caregiver from detention) -- Activity/Self Care Review of Systems Equipment Currently Used at Home -- none -- 10/03/17 1654 Discharge Needs Assessment Concerns To Be Addressed -- Readmission Within The Last 30 Days -- Equipment Needed After Discharge -- Discharge Facility/Level Of Care Needs adult foster care/detention Current Discharge Risk -- Discharge Disposition -- [...] self care tasks Anticipated Discharge Disposition: (P) long term facility Pager: [phone] ZULMA Vargas 10/04/2017 Occupational Therapy Rehabilitation Department [...] Status left lower extremity Bed Mobility Assessment/Treatment Hrf-ej-Gaqqoc Letcher (Bed Mobility) minimum assist (75% patient effort);verbal cues required Impairments (Bed Mobility) pain;ROM (range of motion) decreased Transfer Assessment/Treatment Letcher (Sit-Stand Transfers) moderate assist (50% patient effort);verbal cues required Comment (Transfers) Pt able to maintain WB precautions Dmy-Jqkbw-Hgi Assistive Device (Transfers) rolling walker Chair-Bed Letcher (Transfers) moderate assist (50% patient effort);verbal cues [...] Therapy Frequency 2-4 times/wk Anticipated Discharge Disposition long term facility * Plan of Care - [place] [...] Sister at bedside all night. All incisions PREP PERSON and benign. Will continue to monitor and [...] -- Current Health Outpatient/Agency/Support Group Needs -- detention (specify) -- Anticipated Changes Related to Illness none -- -- Living Environment Transportation Available -- car (caregiver from detention) -- Activity/Self Care Review of Systems Equipment [...] Surveillance [continuous indirect monitoring]: Caregiver at bedside, Jeet Purposeful Rounding, Bedside Report Patient-specific fall prevention [...] -- Current Health Outpatient/Agency/Support Group Needs -- detention (specify) -- Anticipated Changes Related to Illness none -- -- Living Environment Transportation Available -- car (caregiver from detention) -- Activity/Self Care Review of Systems Equipment [...] -- Current Health Outpatient/Agency/Support Group Needs -- detention (specify) -- Anticipated Changes Related to Illness none -- -- Activity/Self Care Review of Systems Equipment Currently Used at Home -- none -- Goal: Interdisciplinary Rounds/Family Conf Outcome: Ongoing (Interventions Implemented as Appropriate) 10/01/17 1816 Interdisciplinary Rounds/Family Conf Participants nursing;physical therapy;patient (caregiver) * Plan of Care - Juliet Leonrado RN - 10/01/2017 3:53 AM EDT Problem: Patient Care Overview Goal: Plan of Care Review Outcome: Ongoing (Interventions Implemented as Appropriate) 09/29/17193809/30/172299 Coping/Psychosocial Plan Of Care Reviewed With -- [...] toward outcome * Plan of Care - Rosangela Kaylin M - 09/30/2017 7:43 PM EDT Problem: Patient Care Overview Goal: Plan of Care Review Outcome: Ongoing (Interventions Implemented as Appropriate) 09/29/17193809/30/17 1110 Coping/Psychosocial Plan Of Care Reviewed With [...] (Interventions Implemented as Appropriate) 09/08/17 0403 09/18/17 12509/29/171938 Discharge Needs Assessment Concerns To Be Addressed -- -- no discharge needs identified Readmission Within The Last 30 Days -- -- no previous admission in last 30 days Equipment Needed After Discharge -- other (see comments) (TBD) -- Discharge Disposition -- still a patient -- Current Health Outpatient/Agency/Support Group Needs -- detention (specify) -- Anticipated Changes Related to Illness [...] assist and FWW LOUIS DORAN PTA Pager: [phone] Inpatient Physical Therapy 09/30/17 1110 Rehab Evaluation [...] Rating Scale) Pain Level 2 Transfer Assessment/Treatment Letcher (Sit-Stand Transfers) moderate assist (50% patient effort);2 person assist required Letcher (Stand-Sit Transfers) moderate assist (50% patient effort);2 person assist required Xzu-Ojjqs-Zvx Assistive Device (Transfers) rolling walker Letcher (Toilet Transfers) moderate assist (50% patient effort);2 person assist required Assistive Device (Toilet Transfers) bedside commode;rolling walker Maintain Weight Bearing Status (Transfers) cues to maintain weight bearing status Safety Issues (Transfers) balance decreased during turns;sequencing ability decreased Impairments (Transfers) balance impaired;postural control impaired;strength decreased;vision impaired Comment (Transfers) stand step transfer to and from commode and w/c, frequent cues provided Gait Assessment/Treatment Letcher (Gait) minimum assist (75% patient effort);2 person [...] all bed mobility activities Bed Mobility Goal, Letcher Level moderate assist (50% patient effort) Bed Mobility Goal, Outcome Achieved goal ongoing Gait Training Goal Gait Training Goal, Date Established 09/09/17 Gait Training Goal, Time to Achieve by discharge Gait Training Goal, Letcher Level minimum assist (75% patient effort) Gait Training Goal, Assist Device walker, rolling Gait Training Goal, Distance to Achieve 15 ft Gait Training Goal, Outcome goal ongoing Transfer Training Goal Transfer Training Goal, Date Established 09/09/17 Transfer Training Goal, Time to Achieve by discharge Transfer Training Goal, Activity Type tkw-kd-mphoa/vuslf-ou-hfv;kyl-ya-yronv/emfnx-uv-vfp Transfer Train Goal, Letcher Level minimum assist (75% patient effort) Transfer Training Goal, Assist Device walker, rolling Transfer Training Goal, Outcome goal ongoing Physical Therapy Goal PT Goal, Date Established 09/09/17 PT Goal, Time to Achieve by discharge PT Goal, Activity Type Pt will propel self in w/c household distances PT Goal, Letcher Level set up required;supervision required PT Goal, Outcome goal ongoing Clinical Impression Therapy Frequency 2-4 times/wk Anticipated Equipment Needs at Discharge front wheeled walker Anticipated Discharge Disposition long term facility (could go to handicap accesible detention with assistance) * Plan of Care - [...] -- Current Health Outpatient/Agency/Support Group Needs -- detention (specify) -- Anticipated Changes Related to Illness none -- -- Living Environment Transportation Available -- car (caregiver from detention) -- Activity/Self Care Review of Systems Equipment [...] all self care tasks Anticipated Discharge Disposition: long term facility Pager: [phone] ZULMA Vargas 09/30/2017 Occupational Therapy Rehabilitation Department [...] Bearing Status left lower extremity Transfer Assessment/Treatment Letcher (Sit-Stand Transfers) moderate assist (50% patient effort);2 person assist required Letcher (Stand-Sit Transfers) moderate assist (50% patient effort);2 person assist required Chair-Bed Letcher (Transfers) maximum assist (25% patient effort);2 person assist required Grooming Assessment/Training Position (Grooming) sitting (in chair at sink) Letcher Level (Grooming) set up required;verbal cues required [...] -- Current Health Outpatient/Agency/Support Group Needs -- detention (specify) -- Anticipated Changes Related to Illness none -- -- Living Environment Transportation Available -- car (caregiver from detention) -- Activity/Self Care Review of Systems Equipment Currently Used at Home -- none -- * Plan of Care - Elena Smith, RN - 09/28/2017 6:55 PM EDT Problem: [...] OTHER [place] Fall Risk -- -- High 03/24/18 2255 Restraint Interventions Safety Promotion/Fall Prevention activity [...] Risk -- Goal: Infection Control 09/27/17 0720 09/27/172254 Safety Interventions Isolation Precautions standard precautions maintained [...] -- Current Health Outpatient/Agency/Support Group Needs -- detention (specify) -- Anticipated Changes Related to Illness none -- -- Living Environment Transportation Available -- car (caregiver from detention) -- Activity/Self Care Review of Systems Equipment [...] -- Current Health Outpatient/Agency/Support Group Needs -- detention (specify) -- Anticipated Changes Related to Illness none -- -- Living Environment Transportation Available -- car (caregiver from detention) -- Activity/Self Care Review of Systems Equipment [...] -- Current Health Outpatient/Agency/Support Group Needs -- detention (specify) -- Anticipated Changes Related to Illness none -- -- Living Environment Transportation Available -- car (caregiver from detention) -- Activity/Self Care Review of Systems Equipment [...] * Plan of Care - Louis Doran COURT OF APPEALS JUDGE - 09/25/2017 12:10 PM EDT Physical Therapy [...] seizure. Precautions/Restrictions: fall, weight bearing Precautions Comments: NWKain Pack LE, L side weaker than R at [...] and 2 assist LOUIS DORAN PTA Pager: [phone] Inpatient Physical Therapy 09/25/17 1217 Rehab Evaluation Document Type therapy note (daily [...] Assessment/Treatment Assistive Device (Bed Mobility) bed rails Ubgpsn-lj-Nlv Letcher (Bed Mobility) moderate assist (50% patient effort);2 person assist required Comment (Bed Mobility) Pt asleep initially, difficult to arouse, once assisted into seated positionpt able to hold himself up and became slightly more responsive Transfer Assessment/Treatment Bed-Chair Letcher (Transfers) maximum assist (25% patient effort);2 person assist required Bkq-Cnkpt-Wan Assistive Device (Transfers) rolling walker Letcher (Sit-Stand Transfers) moderate assist (50% patient effort);2 person assist required Letcher (Stand-Sit Transfers) moderate assist (50% patient effort);2 person assist required Eii-Jaeoq-Jte Assistive Device (Transfers) rolling walker Maintain Weight Bearing Status (Transfers) assist to maintain weight bearing status Impairments (Transfers) balance impaired;pain;strength decreased;vision impaired Comment (Transfers) Stand step transfer from bed to recliner chair, some weight bearing on L LE, ptpicked up walker once. Subsequent stands from recliner chair, pt able to maintain initial NWB to L LE Gait Assessment/Treatment Letcher (Gait) moderate assist (50% patient effort);2 person [...] all bed mobility activities Bed Mobility Goal, Letcher Level moderate assist (50% patient effort) Bed Mobility Goal, Outcome Achieved goal ongoing Gait Training Goal Gait Training Goal, Date Established 09/09/17 Gait Training Goal, Time to Achieve by discharge Gait Training Goal, Letcher Level minimum assist (75% patient effort) Gait Training Goal, Assist Device walker, rolling Gait Training Goal, Distance to Achieve 15 ft Gait Training Goal, Outcome goal ongoing Transfer Training Goal Transfer Training Goal, Date Established 09/09/17 Transfer Training Goal, Time to Achieve by discharge Transfer Training Goal, Activity Type vdn-ca-ordoc/ahtew-cb-ulz;khx-ju-wucnk/uwcoh-vz-xls Transfer Train Goal, Letcher Level minimum assist (75% patient effort) Transfer Training Goal, Assist Device walker, rolling Transfer Training Goal, Outcome goal ongoing Physical Therapy Goal PT Goal, Date Established 09/09/17 PT Goal, Time to Achieve by discharge PT Goal, Activity Type Pt will propel self in w/c household distances PT Goal, Letcher Level set up required;supervision required PT Goal, Outcome goal ongoing Clinical Impression Therapy Frequency 2-4 times/wk Anticipated Equipment Needs at Discharge front wheeled walker Anticipated Discharge Disposition long term facility (could go to handicap accesible detention with assistance) * Plan of Care - [...] Control Outcome: Ongoing (Interventions Implemented as Appropriate) 09/23/17194409/24/17 1600 Safety Interventions Isolation Precautions -- standard [...] self care tasks Anticipated Discharge Disposition: (P) long term facility Pager: [phone] ZULMA Vargas 09/24/2017 Occupational Therapy Rehabilitation Department 09/24/17 193 Rehab Evaluation Document Type therapy note (daily [...] Assessment/Treatment Assistive Device (Bed Mobility) bed rails Xwtwqo-wu-Dkf Letcher (Bed Mobility) verbal cues required;contact guard assist Eqm-cw-Imlcis Letcher (Bed Mobility) verbal cues required;minimum assist (75% [...] Therapy Frequency 2-4 times/wk Anticipated Discharge Disposition long term facility * Plan of Care - Laura [...] Procedure Laterality Date ??? PRO OPEN ORACLE PROGRAMMER FIX ACETABULAR FX Left 09/04/2017 @OPEN TREATMENT, ACETABULAR FX (WRVU 25.41) performed by Amy Lance MD at [facility] MAIN OR Patient has following [...] w/ PRN and scheduled medications, see MAR. [place] removed by ortho this AM, steri strips [...] -- Current Health Outpatient/Agency/Support Group Needs -- detention (specify) -- Anticipated Changes Related to Illness none -- -- Living Environment Transportation Available -- car (caregiver from detention) -- Activity/Self Care Review of Systems Equipment Currently Used at Home -- none -- * Plan of Care - Lisa Person RN - 09/21/2017 1:33 PM EDT Problem: Patient Care Overview Goal: Plan of Care Review Outcome: Ongoing (Interventions Implemented as Appropriate) 09/19/17173309/21/17 0908 Coping/Psychosocial Plan Of Care Reviewed With [...] -- Current Health Outpatient/Agency/Support Group Needs -- detention (specify) -- Anticipated Changes Related to Illness none -- -- Living Environment Transportation Available -- car (caregiver from detention) -- Activity/Self Care Review of Systems Equipment Currently Used at Home -- none -- * Plan of Care - Lisa Person RN - 09/20/2017 1:31 PM EDT Problem: Patient Care Overview Goal: Plan of Care Review Outcome: Ongoing (Interventions Implemented as Appropriate) 09/19/17 17309/20/17 0908 Coping/Psychosocial Plan Of Care Reviewed With [...] -- Current Health Outpatient/Agency/Support Group Needs -- detention (specify) -- Anticipated Changes Related to Illness none -- -- Living Environment Transportation Available -- car (caregiver from detention) -- Activity/Self Care Review of Systems Equipment Currently Used at Home -- none -- * Plan of Care - Lori Ordaz RN - 09/19/2017 5:52 PM EDT Problem: Patient Care Overview Goal: Plan of Care Review Outcome: Ongoing (Interventions Implemented as Appropriate) 09/19/17 3662 Coping/Psychosocial Plan Of Care Reviewed With patient [...] 09/04/17 86.6 kg (191 lb) Current bed: [facility] Assessment:Patient with no active pressure injury's at [...] pager or the wound care team at [phone] or pager [phone] withskin and wound care concerns or questions. [...] all self care tasks Anticipated Discharge Disposition: long term facility Pager: [phone] ZULMA Vargas 09/20/2017 Occupational Therapy Rehabilitation Department [...] Assessment/Training Position (LB Dressing) sitting (in recliner) Letcher Level (LB Dressing) verbal cues required;set up [...] FWW, 2 assist LOUIS DORAN PTA Pager: [phone] Inpatient Physical Therapy 09/19/17 1046 Rehab Evaluation Document Type therapy note (daily [...] Assessment/Treatment Assistive Device (Bed Mobility) bed rails Bgqxkx-ca-Ivb Letcher (Bed Mobility) verbal cues required;supervision required Comment (Bed Mobility) extra time required, HOB elevated Transfer Assessment/Treatment Bed-Chair Letcher (Transfers) minimum assist (75% patient effort);2 person assist required Chair-Bed Letcher (Transfers) minimum assist (75% patient effort);2 person assist required Aay-Cijff-Xmw Assistive Device (Transfers) rolling walker Letcher (Sit-Stand Transfers) minimum assist (75% patient effort);2 person assist required Letcher (Stand-Sit Transfers) minimum assist (75% patient effort);2 person assist required Lns-Vrwik-Ego Assistive Device (Transfers) rolling walker Maintain Weight Bearing Status (Transfers) able to maintain weight bearing status Impairments (Transfers) balance impaired;pain;strength decreased;vision impaired Comment (Transfers) Step by step instructions and cues, pt held L LE above the ground with a flexedhip and knee position throughout transfer Gait Assessment/Treatment Letcher (Gait) minimum assist (75% patient effort);2 person [...] all bed mobility activities Bed Mobility Goal, Letcher Level moderate assist (50% patient effort) Bed Mobility Goal, Outcome Achieved goal ongoing Gait Training Goal Gait Training Goal, Date Established 09/09/17 Gait Training Goal, Time to Achieve by discharge Gait Training Goal, Letcher Level minimum assist (75% patient effort) Gait Training Goal, Assist Device walker, rolling Gait Training Goal, Distance to Achieve 15 ft Gait Training Goal, Outcome goal ongoing Transfer Training Goal Transfer Training Goal, Date Established 09/09/17 Transfer Training Goal, Time to Achieve by discharge Transfer Training Goal, Activity Type brm-xt-lrmmn/mdvyj-xh-hrm Transfer Train Goal, Letcher Level minimum assist (75% patient effort) Transfer Training Goal, Assist Device walker, rolling Transfer Training Goal, Outcome goal ongoing Physical Therapy Goal PT Goal, Date Established 09/09/17 PT Goal, Time to Achieve by discharge PT Goal, Activity Type Pt will propel self in w/c household distances PT Goal, Letcher Level set up required;supervision required PT Goal, Outcome goal ongoing Clinical Impression Therapy Frequency 2-4 times/wk Anticipated Equipment Needs at Discharge front wheeled walker Anticipated Discharge Disposition long term facility (could go to handicap accesible detention with assistance) * Plan of Care - [...] Procedure Laterality Date ??? PRO OPEN ORACLE PROGRAMMER FIX ACETABULAR FX Left 09/04/2017 @OPEN TREATMENT, ACETABULAR FX (WRVU 25.41) performed by Amy Lance MD at [facility] MAIN OR Patient has following [...] 30 days Current Health Outpatient/Agency/Support Group Needs detention (specify) Goal: Interdisciplinary Rounds/Family Conf Outcome: Ongoing [...] monitoring]: Hourly rounding, call morris in reach, felyo, caregiver at bedside Patient-specific fall prevention interventions [...] Procedure Laterality Date ??? PRO OPEN ORACLE PROGRAMMER FIX ACETABULAR FX Left 09/04/2017 @OPEN TREATMENT, ACETABULAR FX (WRVU 25.41) performed by Amy Lance MD at [facility] MAIN OR Patient has following [...] self care tasks Anticipated Discharge Disposition: (P) long term facility Pager: [phone] ZULMA Vargas 09/17/2017 Occupational Therapy Rehabilitation Department 09/17/17 9336 Rehab Evaluation Document Type therapy note (daily [...] Level 3 Bed Mobility Assessment/Treatment Roll Left Letcher (Bed Mobility) minimum assist (75% patient effort);nonverbal cues required (demo/gesture);verbal cues required Roll Right Letcher (Bed Mobility) verbal cues required;nonverbal cues required (demo/gesture) ADL Assessment/Intervention Additional Documentation Grooming Assessment/Training (Group) Grooming Assessment/Training Position (Grooming) (supine in bed with HOB raised) Letcher Level (Grooming) set up required;verbal cues required Impairments (Grooming) other (see comments) (cognative) Comment (Grooming) pt able to wash his face and stomach Plan of Care Review Plan Of Care Reviewed With patient Progress no change Clinical Impression Criteria for Skilled Therapeutic Interventions Met yes;treatment indicated Rehab Potential good, to achieve stated therapy goals Therapy Frequency 2-4 times/wk Anticipated Discharge Disposition long term facility * Plan of Care - Lenore [...] 2 assist Surveillance [continuous indirect monitoring]: Pt declines Masimo, hourly rounding Patient-specific fall prevention interventions for [...] Procedure Laterality Date ??? PRO OPEN ORACLE PROGRAMMER FIX ACETABULAR FX Left 09/04/2017 @OPEN TREATMENT, ACETABULAR FX (WRVU 25.41) performed by Amy Lance MD at [facility] MAIN OR Patient has following [...] Lance MD - 09/16/2017 10:24 AM EDT [facility] [place] Operative Note Patient Name: Miguel Angel Mason : [id number] MR#: [id number] Case Date: 09/04/2017 Surgeon: Surgeon(s) and Role: [...] and is otherwise quite independent in his detention prior to this injury. Furthermore, she did [...] patient Current Health Outpatient/Agency/Support Group Needs -- detention (specify) -- Anticipated Changes Related to Illness -- none -- Living Environment Transportation Available -- other (see comments) (member from detention can provide) -- Activity/Self Care Review of [...] -- Current Health Outpatient/Agency/Support Group Needs -- detention (specify) -- Anticipated Changes Related to Illness -- none -- Living Environment Transportation Available -- other (see comments) (member from detention can provide) -- Activity/Self Care Review of [...] Outcome: Ongoing (Interventions Implemented as Appropriate) 09/14/17 4812 Coping/Psychosocial Plan Of Care Reviewed With patient [...] tomorrow. CM reviewed responses from referrals to SNF/[facility] as followed: [facility] [address] [place] [address] - DECLINED- Patient too complex and do not have any private male rooms. [facility] PHONE: [phone] FAX: [phone]- has received referral but has not responded. [facility] [address] [place] [address] DECLINED- No appropriate bed to offer-concerns with behaviors as well. 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 We have no beds today, but willkeep referral open. Will ask Friday CM/RS to follow up with [facility] and [facility]. If no beds available, CM to follow up with sibling (as noted in chart) to expand search. Covering pager #[phone] for today. * Plan of Care - [...] worsens with repositioning for incontinence care. Carisa ZULMA and intact. Haldol 2 mg po given [...] Control Outcome: Ongoing (Interventions Implemented as Appropriate) 09/13/17 09 Safety Interventions Isolation Precautions standard precautions [...] -- Current Health Outpatient/Agency/Support Group Needs -- detention (specify) -- Anticipated Changes Related to Illness -- none -- Living Environment Transportation Available -- other (see comments) (member from detention can provide) -- Activity/Self Care Review of [...] * Plan of Care - Priscilla Lock Ramone - 09/13/2017 5:10 PM EST Problem: [...] self care tasks Anticipated Discharge Disposition: (P) long term facility Pager: [phone] ZULMA Vargas 09/13/2017 Occupational Therapy Rehabilitation Department [...] -- Current Health Outpatient/Agency/Support Group Needs -- detention (specify) -- Anticipated Changes Related to Illness -- none -- Living Environment Transportation Available -- other (see comments) (member from detention can provide) -- Activity/Self Care Review of [...] Patient/Family/Caregiver Comments/Observations What exercises can he do? NON LICENSED OPERATOR (yelling out off and on) General Observations [...] Assessment/Treatment Assistive Device (Bed Mobility) (HOB up) Qhxafw-em-Kyb Letcher (Bed Mobility) verbal cues required;minimum assist (75% patient effort);2 person assist required Transfer Assessment/Treatment Bed-Chair Letcher (Transfers) verbal cues required;minimum assist (75% patient effort);moderate assist (50% patient effort);2 person assist required Lio-Hnadl-Ipp Assistive Device (Transfers) rolling walker Maintain Weight [...] Of Care Reviewed With patient;other (see comments) (NON LICENSED OPERATOR from detention) Progress progress towards functional goals is fair Bed Mobility Goal Bed Mobility Goal, Activity Type all bed mobility activities Bed Mobility Goal, Letcher Level moderate assist (50% patient effort) Bed Mobility Goal, Date Goal Reviewed 09/12/17 Bed Mobility Goal, Outcome Achieved goal ongoing Gait Training Goal Gait Training Goal, Letcher Level minimum assist (75% patient effort) Gait Training Goal, Assist Device walker, rolling Gait Training Goal, Distance to Achieve 15 Gait Training Goal, Date Goal Reviewed 09/12/17 Gait Training Goal, Outcome goal ongoing Transfer Training Goal Transfer Training Goal, Time to Achieve by discharge Transfer Training Goal, Activity Type zhf-md-ushwy/zsmch-bk-dhd Transfer Train Goal, Letcher Level minimum assist (75% patient effort) Transfer Training Goal, Assist Device walker, rolling Transfer Train Goal, Date Goal Reviewed 09/12/17 Transfer Training Goal, Outcome goal ongoing Clinical Impression Rehab Potential fair, will monitor progress closely Therapy Frequency 2-4 times/wk Anticipated Equipment Needs at Discharge two wheeled walker Anticipated Discharge Disposition long term facility;other (see comments) (could got to handicap accesible detention with assistance) Staff Mobility Recommendations Stand pivot bed <-> chair toward right LE with FWW and min - mod assist x 2 - needs min assist to maintain NWB LLE with sit -> stand ETELVINA SZYMANSKI, PT Pager: [phone] Inpatient Physical Therapy * Consult Note - Isabel Garcia RN - 09/12/2017 11:40 AM EST Certified Wound Care Nurse Rounding Note During rounding on unit, nurse expressed pt is able to be turned Q2 hours with out issue. Issues/concerns identified: No issues at this time per medical laboratory technician Recommendations: Refer to adult/pediatric pressure ulcer prevention [...] sitting up in bed, having lunch with NON LICENSED OPERATOR from detention Pertinent History of Current Problem Pt is [...] Device (Bed Mobility) (HOB up) Roll Left Letcher (Bed Mobility) minimum assist (75% patient effort);2 person assist required Roll Right Letcher (Bed Mobility) verbal cues required;nonverbal cues required (demo/gesture);minimum assist (75% patient effort);2 person assist required Scoot/Bridge Letcher (Bed Mobility) minimum assist (75% patient effort);2 person assist required Qpxlrt-yx-Qfe Letcher (Bed Mobility) verbal cues required;nonverbal cues required (demo/gesture);minimum assist (75% patient effort);2 person assist required Safety Issues (Bed Mobility) decreased use of legs for bridging/pushing Impairments (Bed Mobility) pain;ROM (range of motion) decreased Transfer Assessment/Treatment Bed-Chair Letcher (Transfers) nonverbal cues required (demo/gesture);minimum assist (75% patient effort);moderate assist (50% patient effort);2 person assist required Obj-Dazcp-Byw Assistive Device (Transfers) rolling walker Letcher (Sit-Stand Transfers) minimum assist (75% patient effort);2 person assist required Maintain Weight Bearing Status (Transfers) assist to maintain weight bearing status Safety Issues (Transfers) weight-shifting ability decreased Impairments (Transfers) balance impaired;coordination impaired;pain;weight bearing status, unable to maintain Coping Observed Emotional State afraid/fearful;agitated Plan of Care Review Plan Of Care Reviewed With patient;other (see comments) (NON LICENSED OPERATOR) Progress progress towards functional goals is fair Bed Mobility Goal Bed Mobility Goal, Time to Achieve by discharge Bed Mobility Goal, Activity Type all bed mobility activities Bed Mobility Goal, Letcher Level moderate assist (50% patient effort) Bed Mobility Goal, Date Goal Reviewed 09/11/17 Bed Mobility Goal, Outcome Achieved goal ongoing Gait Training Goal Gait Training Goal, Time to Achieve by discharge Gait Training Goal, Letcher Level minimum assist (75% patient effort) Gait Training Goal, Assist Device walker, rolling Gait Training Goal, Distance to Achieve 15 Gait Training Goal, Outcome goal ongoing Transfer Training Goal Transfer Training Goal, Time to Achieve by discharge Transfer Training Goal, Activity Type qoa-wp-erfty/jlqaa-oo-prl Transfer Train Goal, Letcher Level minimum assist (75% patient effort) Transfer [...] setting of a possible seizure. PT Goal, Letcher Level set up required;supervision required Clinical Impression Therapy Frequency 2-4 times/wk Anticipated Equipment Needs at Discharge front wheeled walker Anticipated Discharge Disposition long term facility Staff Mobility Recommendations Assist x 2 for stand pivot transfer with FWW toward right - needs assist for NWBing with sit -> stand; does best when asked to count to 3 ETELVINA SZYMANSKI, PT Pager: [phone] Inpatient Physical Therapy * Plan of Care - Loren Trivedi RN - 09/11/2017 3:19 PM EST Problem: Patient Care Overview Goal: Plan of Care Review Outcome: Ongoing (Interventions Implemented as Appropriate) 09/10/17 0309 09/11/17 08 Coping/Psychosocial Plan Of Care Reviewed With [...] near nurses station Surve[facility] Patient-specific fall prevention interventions for sensory deficits [...] -- Current Health Outpatient/Agency/Support Group Needs -- detention (specify) -- Anticipated Changes Related to Illness -- none -- Living Environment Transportation Available -- other (see comments) (member from detention can provide) -- Activity/Self Care Review of [...] -- Current Health Outpatient/Agency/Support Group Needs -- detention (specify) -- Anticipated Changes Related to Illness -- none -- Living Environment Transportation Available -- other (see comments) (member from detention can provide) -- Activity/Self Care Review of [...] at this time and morse replaced per CLOTH BOLT BANDER orders. Pt also removed transverse abdominal dressing, RN replaced with gauze and tegaderm. PRN pain meds provided ATC, see MAR. Pt did not appear to get any relief. CLOTH BOLT BANDER notified, one time dose of lorazepam ordered [...] alarm * Plan of Care - Murtaza Bruce, PT - 09/09/2017 3:20 PM EST Physical [...] to be independent enough to return to [facility]. Pt would benefit from ongoing physical therapy interventions. Staff Mobility Recommendations Would recommend bedrest until further PT/OT sessions Murtaza Bruce PT Pager: [phone] Inpatient Physical Therapy 2017 PT Evaluation Code [...] Living Environment Comment Pt lives in a detention with 3 other roomates. The fishing line winding machine operator of the detention reports that they have a caregiver there [...] a good distraction from patient. At the detention he tends to wear jenas with no [...] formally assess 2/2 cognition; however ptable to pickle processor leg volitionally and stand up w/ assist Mobility Assessment/Training Additional Documentation Bed Mobility Assessment/Treatment (Group);Transfer Assessment/Treatment (Group);Weight-Bearing Status (Group) Weight-Bearing Status Extremity Weight Bearing Status left lower extremity Bed Mobility Assessment/Treatment Assistive Device (Bed Mobility) (elevated HOB) Scoot/Bridge Letcher (Bed Mobility) minimum assist (75% patient effort) Nuxiqx-ml-Ihc Letcher (Bed Mobility) minimum assist (75% patient effort);2 person assist required Nla-pc-Eyjcaq Letcher (Bed Mobility) minimum assist (75% patient effort);2 person assist required Impairments (Bed Mobility) coordination impaired;pain;ROM (range of motion) decreased;strength decreased Comment (Bed Mobility) pt able to initiate movements in bed; limited by pain; distraction techniqueof chewing gum worked well Transfer Assessment/Treatment Letcher (Sit-Stand Transfers) minimum assist (75% patient effort);2 person assist required;verbal cues required Letcher (Stand-Sit Transfers) minimum assist (75% patient effort);2 person assist required;verbal cues required Gql-Phdrm-Qeg Assistive Device (Transfers) rolling walker Maintain Weight [...] normal balance Sitting Balance: Dynamic good balance Yve-rz-Hbghd Balance fair balance Standing Balance: Static fair [...] all bed mobility activities Bed Mobility Goal, Letcher Level moderate assist (50% patient effort) Gait Training Goal Gait Training Goal, Date Established 09/09/17 Gait Training Goal, Time to Achieve by discharge Gait Training Goal, Letcher Level minimum assist (75% patient effort) Gait Training Goal, Assist Device walker, rolling Gait Training Goal, Distance to Achieve 15' Transfer Training Goal Transfer Training Goal, Date Established 09/09/17 Transfer Training Goal, Time to Achieve by discharge Transfer Training Goal, Activity Type dyn-yq-uricu/bagrr-nk-tnr;gni-og-akfwu/qmcun-qs-ftj Transfer Train Goal, Letcher Level minimum assist (75% patient effort) Transfer Training Goal, Assist Device walker, rolling Physical Therapy Goal PT Goal, Date Established 09/09/17 PT Goal, Time to Achieve by discharge PT Goal, Activity Type Pt will propel self in w/c household distances PT Goal, Letcher Level set up required;conditional independence Clinical Impression Rehab Potential fair, will monitor progress closely Therapy Frequency 2-4 times/wk Anticipated Equipment Needs at Discharge (TBD at rehab ) Anticipated Discharge Disposition long term facility General Interventions Additional Documentation Planned Therapy [...] Given the set up of h is detention, anticipate a need for rehab. Staff Recommendations/Things [...] sometimes rips shirts off. Anticipated Discharge Disposition: long term facility Pager: [phone] SKYLA AYALA, OT 09/09/2017 Occupational Therapy Rehabilitation [...] and measurable assessment of functional outcome. 09/09/17 9387 Rehab Evaluation Document Type evaluation Total Evaluation [...] Living Environment Comment Pt lives in a detention with 3 other roomates. The fishing line winding machine operator of the detention reports that they have a caregiver there [...] a good distraction for patient. 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 Weight-Bearing Status Extremity Weight Bearing Status left lower extremity Bed Mobility Assessment/Treatment Assistive Device (Bed Mobility) (HOB raised) Scoot/Bridge Letcher (Bed Mobility) minimum assist (75% patient effort) Srvihi-bg-Ykp Letcher (Bed Mobility) minimum assist (75% patient effort);2 person assist required;verbal cues required (verbal/tactile cues) Ifu-dl-Fwijae Letcher (Bed Mobility) minimum assist (75% patient effort);2 person assist required Impairments (Bed Mobility) pain;strength decreased;coordination impaired;ROM (range of motion) decreased;other (see comments) (mental status) Comment (Bed Mobility) Pt relutant to sit initially 2' pain. Gave gum as likes to chew on things for a coping mechanism. Transfer Assessment/Treatment Letcher (Sit-Stand Transfers) minimum assist (75% patient effort);2 person assist required;verbal cues required (tactile cues) Letcher (Stand-Sit Transfers) minimum assist (75% patient effort);2 person assist required;verbal cues required Sjj-Fhbrx-Fzy Assistive Device (Transfers) rolling walker Maintain Weight Bearing Status (Transfers) assist to maintain weight bearing status;cues to maintain weight bearing status Impairments (Transfers) balance impaired;pain;coordination impaired;ROM (range of motion) decreased;strength decreased;other (see comments) (mental status ) Lower Body Dressing Assessment/Training Position (LB Dressing) sitting Letcher Level (LB Dressing) dependent (less than 25% patient effort) Impairments (LB Dressing) balance impaired;coordination impaired;pain;strength decreased (mental status) Comment (LB Dressing) for socks Toileting Assessment/Training Position (Toileting) supported sitting Letcher Level (Toileting) dependent (less than 25% patient effort) Impairments (Toileting) pain;coordination impaired;strength decreased (poor initation, awareness, decreased mobility ) Comment (Toileting) has catheter and wearing depends. Gave Pt gum as Pt was trying to chew his diaper. Balance Skills Training Training Strategies (Balance) seated eob Sitting Balance: Static normal balance Sitting Balance: Dynamic good balance Tfk-in-Siljf Balance fair balance Standing Balance: Static fair [...] wheelchair, commode, shower seat) Anticipated Discharge Disposition long term facility General Therapy Interventions Planned Therapy Interventions [...] Surveillance [continuous indirect monitoring]: Masimo, purposeful rounding, healthcare management at bedside, hourly safety checks. Patient-specific fall [...] patient Current Health Outpatient/Agency/Support Group Needs -- detention (specify) Anticipated Changes Related to Illness -- none Living Environment Transportation Available -- other (see comments) (member from detention can provide) Activity/Self Care Review of Systems [...] Current Decision-Making Capacity: sister Bettina Mason (Sibling) [phone] [facility] [phone] (H)- ?? Advance Care Planning: not on file Current Coping/Education/Information Needs: Coping well per care givers ?? Current Functional Ability: has not had PT yet per care givers ?? Functional Status Prior to Admission: lives in detention setting on 2nd level able to ascend stairs, showers self with stand by assist r/t blindness per care givers, non communicative however the care givers seem able to understand at least some of pt's attempts of communication. ?? [place] Environment[place] [facility] [place] Social & Family Supports/Community Resources: Extended Emergency Contact Information Primary Emergency Contact: MickitomyBettina Address: [address] [place] [id number] [place] [address] Relation: Sibling ?? Behavioral Health History: NA ?? Substance Use/Abuse: NA ?? Other Pertinent/Service Specific Information: unlikely be able to return to detention immediately ?? Health/Prescription Coverage: Primary Insurance: Payor: [place] / Plan: [place] / Product Type: *No Product type* / Secondary Insurance: Prescription Coverage: see above Preferred Pharmacy: No Pharmacies Listed Other: None ?? Primary Care Provider: NAKIA Cifuentes [phone] ?? Patient/Caregiver Goals of Treatment: Safe discharge ? Potential Needs for Transition of Care: Rehab/SNF: TBD Home Health: no DME: no Dialysis: No Community Resources: No Transportation: ambulance Other: None ?? Anticipated Barriers to Discharge/Special Considerations: None ?? Plan: Per discussion with care givers pt may be near facilities such as [facility], [facility] and the [facility] [place]. CM will need to connect with sister for choices ?? A member of the Care Management team will continue to monitor progress, follow for continuity of care and assist with transition of care planning. ?? CHAVEZ KELSEY RN Pager: [phone] ? * Plan of Care - Josefina Miranda RN - 09/08/2017 2:56 PM EST Problem: Patient Care Overview Goal: Plan of Care Review 09/06/17 0350 09/07/17 2130 Coping/Psychosocial Plan Of Care Reviewed With -- caregiver Plan of Care Review Progress no change -- Goal: Individualization & Mutuality 03/02/18 0609/07/17 0504 Individualization Patient Specific Preferences Able to [...] Fall Risk -- High Goal: Infection Control 09/07/17212909/08/1715 Safety Interventions Isolation Precautions -- standard precautions [...] patient Current Health Outpatient/Agency/Support Group Needs -- detention (specify) Anticipated Changes Related to Illness -- none Living Environment Transportation Available -- other (see comments) (member from detention can provide) Activity/Self Care Review of Systems [...] patient Current Health Outpatient/Agency/Support Group Needs -- detention (specify) Anticipated Changes Related to Illness -- none Living Environment Transportation Available -- other (see comments) (member from detention can provide) Activity/Self Care Review of Systems [...] discomfort. Resting comfortably in between care with coal conveyor operator at bedside. Repositioned frequently to prevent [...] Ongoing (Interventions Implemented as Appropriate) 09/06/17 0350 Fracture Orthopaedic Problems Assessed (Orthopaedic Fracture) all [...] (Interventions Implemented as Appropriate) 09/04/17 0853 09/05/17 0909/05/17 1026 Restraint Interventions Safety Promotion/Fall Prevention -- [...] Patient greeted and reason for visit stated. parachute officer at bedside. RN at bedside, patient able [...] Please contact Isabel Garcia RN on pager [phone] or the wound care team at [phone] or pager [phone] skin and wound care concerns or questions. [...] HR was tachy for most of shift, CLOTH BOLT BANDER paged and EKG ordered. IV metoprolol given x2 for HR in 140s, but pt sustained in 120s for most of shift. Phosphorus and Magnesiumordered with AM labs, phos critical at 1.1, CLOTH BOLT BANDER notified. IV K phosphate ordered. Pt was [...] Note Patient Name: Miguel Angel Mason : [id number] MR#: [id number] Case Date: 09/04/2017 Surgeon: Surgeon(s) and Role: [...] administered. 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 CT showed an acute left acetabular fracture and osteopenia, he was given morphine, dilaudid and ativan for pain and sedation and was transferred here. Na at [facility] 132. VS here, tachycardic up to 146 [...] 2004 (s/p removal of pituitary gland in [facility]), secondary to surgery. He has been on thyroid replacement 150 mcg daily, DDAVP 0.05 mg three times a day, maintenance hydrocortisone 20 mg morning, 10 mg noon and 10 mg 7 pm and androgel 1% 3 pumps daily. He has been on these doses for a couple of years. 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 Niles Tillman. I reviewed the santos portions of the history and physical exam, and reviewed pertinent lab data. I answered all patient questions. I was involved in all medical decision making and agree with this plan. GENEVIEVE PAGE MD Mining Captainequipment operation instructor Section of Endocrinology [facility] [place] * Consult Note - David Phillips MD - 09/03/2017 9:10 AM EST Neurology Consult History and Physical Patient name: Miguel Angel Mason Date of : 1990 PCP: NAKIA Cifuentes CC: seizure HPI: Miguel Angel Msaon is a 27 y.o. 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 The patient lives in a detention at baseline. 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 He presented to [place] from where he was transferred here for surgery. He was given ativan to prevent further seizures as well as dilaudid for pain. The patient has a history of seizures. He last had a similar seizure 4 years ago. He is on zonisamide 100 mg at bedtime which he has been taking daily without issues. In the past he had more frequentseizures between [id number]. His sister is unsure of what types of seizures, she does not think he had GTC in the past. He has no known history of status epilepticus. He has had imaging in the past, EEG but his sister is unsure of the results. He has a neurologist in [place], [place]. At his baseline state, he has [...] no use Living situation: lives in a detention, has people who help with most ADL [...] file Social History Narrative [place] [facility] [place]/2014. Review of systems: Constitutional: [...] L Elbow flexion 5/5 R, 5/5 L Advisory Software Engineer LE: 5/5 R, [place] L Hip flexion [...] testing Moisés Orr MD PGY-3 Neurology Pager [phone] Neurology Attending I saw and evaluated the [...] status David Phillips MD [place] [address] Pager #[phone] Email: [email or web address] [place] Plan of Care - Marisabel Cunningham [...] in a van. He lives in a detention. At baseline he ambulates without assistive devices. He is accompanied by his sister and her friend. His sister is his DPOA. She says he went in the detention van today. After the ride he was moaning in pain. They took him to [place] where imaging revealed a left acetabular fracture. Both her and the detention feel that he had a seizure on [...] added. Patient tolerated the procedure well. Assessment/Plan: y.o. male who presents with a left [...] evaluation and treatment. Please call Ortho resident design consultant with any questions or concerns. * [...] T wave inversion in EKG CARDIAC ENZYMES ([facility] [place]) Routine 03/02/2018 6:26 AM EDT BASIC METABOLIC [...] 02/28/2018 4: 20 PM EDT CARDIAC ENZYMES ([facility] [place]) Routine 02/28/2018 4:20 PM EDT BLOOD CULTURE [...] IMPLANTABLE DEVICES SCAN 09/04/2017 12:00 AM EST INDUSTRIAL SPRAYPAINTER SCAN 09/04/2017 12:00 AM EST URINALYSIS WITH [...] 09/03/2017 12:54 AM EST TYPE AND SCREEN ([facility]) STAT 09/03/2017 12:54 AM EST BASIC METABOLIC [...] EDT) Glucose 90 65 - 199 mg/dL [facility] Comment:Diabetes: >=200 mg/d L plus symptoms Blood Urea Nitrogen 11 10 - 20 mg/dL [facility] Creatinine 0.70(L) 0.80 - 1.50 mg/dL [facility] Sodium 138 135 - 145 mmol/L [facility] Potassium 3.9 3.5 - 5.0 mmol/L [facility] Comment: Please note: ??Patients with WBC >100,000 may have falsely elevated Potassium levels. ??For accurate Potassium quantification in these patients send serum separator tube (gold top) for subsequent determinations. ??Contact the Clinical Chemistry Laboratory if there are any questions. Chloride 100 98 - 107 mmol/L [facility] Carbon Dioxide 24 22 - 31 mmol/L [facility] Anion Gap 14 5 - 15 mmol/L [facility] Calcium 8.7 8.5 - 10.5 mg/dL [facility] Est Glomerular Filtration Rate 129 >=60 mL/min/1. 73 m?? [facility] Comment: The eGFR was calculated using the CKD-EPI equation. As with all creatinine based estimates of kidney function, eGFR values calculated with the CKD-EPI equation are not accurate in patients with acute kidney failure, extremes of body mass or the acutely ill. [email or web address] [email or web address] eGFR 150 >=60 mL/min/1. 73 m?? [facility] Comment: The eGFR was calculated using the CKD-EPI equation. As with all creatinine based estimates of kidney function, eGFR values calculated with the CKD-EPI equation are not accurate in patients with acute kidney failure, extremes of body mass or the acutely ill. [email or web address] Blood specimen (specimen) 03/10/2018 1:48 PM EDT 03/10/2018 2:05 PM EDT Narrative Resulting Agency Comment Spec In Lab Gabriella Maher MD CHEMISTRY ORDERABLES [facility] [place] [address] * (ABNORMAL) Basic Metabolic Panel (non-fasting) (03/09/2018 8:46 AM EDT) Glucose 97 65 - 199 mg/dL [facility] Comment:Diabetes: >=200 mg/d L plus symptoms Blood Urea Nitrogen 9(L) 10 - 20 mg/dL [facility] Creatinine 0.68(L) 0.80 - 1.50 mg/dL [facility] Sodium 133(L) 135 - 145 mmol/L [facility] Potassium 3.7 3.5 - 5.0 mmol/L [facility] Comment: Please note: ??Patients with WBC >100,000 may have falsely elevated Potassium levels. ??For accurate Potassium quantification in these patients send serum separator tube (gold top) for subsequent determinations. ??Contact the Clinical Chemistry Laboratory if there are any questions. Chloride 98 98 - 107 mmol/L [facility] Carbon Dioxide 22 22 - 31 mmol/L [facility] Anion Gap 13 5 - 15 mmol/L [facility] Calcium 9.0 8.5 - 10.5 mg/dL [facility] Est Glomerular Filtration Rate 131 >=60 mL/min/1. 73 m?? [facility] Comment: The eGFR was calculated using the CKD-EPI equation. As with all creatinine based estimates of kidney function, eGFR values calculated with the CKD-EPI equation are not accurate in patients with acute kidney failure, extremes of body mass or the acutely ill. [email or web address] eGFR 152 >=60 mL/min/1. 73 m?? [facility] Comment: The eGFR was calculated using the CKD-EPI equation. As with all creatinine based estimates of kidney function, eGFR values calculated with the CKD-EPI equation are not accurate in patients with acute kidney failure, extremes of body mass or the acutely ill. [email or web address] Blood specimen (specimen) 03/09/2018 8:46 AM EDT 03/09/2018 9:15 AM EDT Narrative Resulting Agency Comment Spec In Lab Gabriella Maher MD CHEMISTRY ORDERABLES [facility] [place] [address] * (ABNORMAL) Basic Metabolic Panel (non-fasting) (03/08/2018 6:19 AM EDT) Glucose 107 65 - 199 mg/dL [facility] Comment:Diabetes: >=200 mg/d L plus symptoms Blood Urea Nitrogen 16 10 - 20 mg/dL [facility] Creatinine 0.72(L) 0.80 - 1.50 mg/dL [facility] Sodium 133(L) 135 - 145 mmol/L [facility] Potassium 3.5 3.5 - 5.0 mmol/L [facility] Comment: Please note: ??Patients with WBC >100,000 may have falsely elevated Potassium levels. ??For accurate Potassium quantification in these patients send serum separator tube (gold top) for subsequent determinations. ??Contact the Clinical Chemistry Laboratory if there are any questions. Chloride 97(L) 98 - 107 mmol/L [facility] Carbon Dioxide 21(L) 22 - 31 mmol/L [facility] Anion Gap 15 5 - 15 mmol/L [facility] Calcium 9.0 8.5 - 10.5 mg/dL [facility] Est Glomerular Filtration Rate 128 >=60 mL/min/1. 73 m?? [facility] Comment: The eGFR was calculated using the CKD-EPI equation. As with all creatinine based estimates of kidney function, eGFR values calculated with the CKD-EPI equation are not accurate in patients with acute kidney failure, extremes of body mass or the acutely ill. [email or web address] [facility] eGFR 148 >=60 mL/min/1. 73 m?? [facility] Comment: The eGFR was calculated using the CKD-EPI equation. As with all creatinine based estimates of kidney function, eGFR values calculated with the CKD-EPI equation are not accurate in patients with acute kidney failure, extremes of body mass or the acutely ill. [email or web address] [place] Blood specimen (specimen) 03/08/2018 6:19 AM EDT 03/08/2018 6:34 AM EDT Narrative Resulting Agency Comment Spec In Lab Gabriella Maher MD CHEMISTRY ORDERABLES [facility] [place] [address] * (ABNORMAL) Basic Metabolic Panel (non-fasting) (03/07/2018 5:23 PM EDT) Glucose 99 65 - 199 mg/dL [facility] Comment:Diabetes: >=200 mg/d L plus symptoms Blood Urea Nitrogen 15 10 - 20 mg/dL [facility] Creatinine 0.72(L) 0.80 - 1.50 mg/dL [facility] Sodium 135 135 - 145 mmol/L [facility] Comment:result rechecked-RG Potassium 3.5 3.5 - 5.0 mmol/L [facility] Comment: Please note: ??Patients with WBC >100,000 may have falsely elevated Potassium levels. ??For accurate Potassium quantification in these patients send serum separator tube (gold top) for subsequent determinations. ??Contact the Clinical Chemistry Laboratory if there are any questions. Chloride 98 98 - 107 mmol/L [facility] Carbon Dioxide 22 22 - 31 mmol/L [facility] Anion Gap 15 5 - 15 mmol/L [facility] Calcium 8.9 8.5 - 10.5 mg/dL [facility] Est Glomerular Filtration Rate 128 >=60 mL/min/1. 73 m?? [facility] Comment: The eGFR was calculated using the CKD-EPI equation. As with all creatinine based estimates of kidney function, eGFR values calculated with the CKD-EPI equation are not accurate in patients with acute kidney failure, extremes of body mass or the acutely ill. [email or web address] eGFR 148 >=60 mL/min/1. 73 m?? [facility] Comment: The eGFR was calculated using the CKD-EPI equation. As with all creatinine based estimates of kidney function, eGFR values calculated with the CKD-EPI equation are not accurate in patients with acute kidney failure, extremes of body mass or the acutely ill. [email or web address] Blood specimen (specimen) 03/07/2018 5:23 PM EDT 03/07/2018 5:29 PM EDT Narrative Resulting Agency Comment Spec In Lab Gabriella Maher MD CHEMISTRY ORDERABLES [facility] [place] [address] * Basic Metabolic Panel (non-fasting) (03/05/2018 2:19 PM EDT) Glucose 186 65 - 199 mg/dL [facility] Comment:Diabetes: >=200 mg/d L plus symptoms Blood Urea Nitrogen 14 10 - 20 mg/dL [facility] Creatinine 0.81 0.80 - 1.50 mg/dL [facility] Sodium 144 135 - 145 mmol/L [facility] Potassium 3.6 3.5 - 5.0 mmol/L [facility] Comment: Please note: ??Patients with WBC >100,000 may have falsely elevated Potassium levels. ??For accurate Potassium quantification in these patients send serum separator tube (gold top) for subsequent determinations. ??Contact the Clinical Chemistry Laboratory if there are any questions. Chloride 106 98 - 107 mmol/L [facility] Carbon Dioxide 24 22 - 31 mmol/L [facility] Anion Gap 14 5 - 15 mmol/L [facility] Calcium 9.1 8.5 - 10.5 mg/dL [facility] Est Glomerular Filtration Rate 122 >=60 mL/min/1. 73 m?? [facility] Comment: The eGFR was calculated using the CKD-EPI equation. As with all creatinine based estimates of kidney function, eGFR values calculated with the CKD-EPI equation are not accurate in patients with acute kidney failure, extremes of body mass or the acutely ill. [email or web address] eGFR 141 >=60 mL/min/1. 73 m?? [facility] Comment: The eGFR was calculated using the CKD-EPI equation. As with all creatinine based estimates of kidney function, eGFR values calculated with the CKD-EPI equation are not accurate in patients with acute kidney failure, extremes of body mass or the acutely ill. [email or web address] Blood specimen (specimen) 03/05/2018 2:19 PM EDT 03/05/2018 2:25 PM EDT Narrative Resulting Agency Comment Spec In Lab Reba Linton MD CHEMISTRY ORDERA BLES [facility] [place] [address] * (ABNORMAL) Basic Metabolic Panel (non-fasting) (03/04/2018 7:53 AM EDT) Glucose 92 65 - 199 mg/dL [facility] Comment:Diabetes: >=200 mg/d L plus symptoms Blood Urea Nitrogen 15 10 - 20 mg/dL [facility] Creatinine 0.75(L) 0.80 - 1.50 mg/dL [facility] Sodium 148(H) 135 - 145 mmol/L [facility] Potassium 3.5 3.5 - 5.0 mmol/L [facility] Comment: Please note: ??Patients with WBC >100,000 may have falsely elevated Potassium levels. ??For accurate Potassium quantification in these patients send serum separator tube (gold top) for subsequent determinations. ??Contact the Clinical Chemistry Laboratory if there are any questions. Chloride 109(H) 98 - 107 mmol/L [facility] Carbon Dioxide 25 22 - 31 mmol/L [facility] Anion Gap 14 5 - 15 mmol/L [facility] Calcium 9.8 8.5 - 10.5 mg/dL [facility] Est Glomerular Filtration Rate 126 >=60 mL/min/1. 73 m?? [facility] Comment: The eGFR was calculated using the CKD-EPI equation. As with all creatinine based estimates of kidney function, eGFR values calculated with the CKD-EPI equation are not accurate in patients with acute kidney failure, extremes of body mass or the acutely ill. [email or web address] eGFR 146 >=60 mL/min/1. 73 m?? [facility] Comment: The eGFR was calculated using the CKD-EPI equation. As with all creatinine based estimates of kidney function, eGFR values calculated with the CKD-EPI equation are not accurate in patients with acute kidney failure, extremes of body mass or the acutely ill. [email or web address] Blood specimen (specimen) 03/04/2018 7:53 AM EDT 03/04/2018 8:03 AM EDT Narrative Resulting Agency Comment Spec In Lab Reba Linton MD CHEMISTRY ORDERA BLES [facility] [place] [address] * (ABNORMAL) Basic Metabolic Panel (non-fasting) (03/03/2018 12:47 PM EDT) Glucose 260(H) 65 - 199 mg/dL [facility] Comment:Diabetes: >=200 mg/d L plus symptoms Blood Urea Nitrogen 14 10 - 20 mg/dL [facility] Creatinine 0.81 0.80 - 1.50 mg/dL [facility] Sodium 150(H) 135 - 145 mmol/L [facility] Potassium 4.3 3.5 - 5.0 mmol/L [facility] Comment: Please note: ??Patients with WBC >100,000 may have falsely elevated Potassium levels. ??For accurate Potassium quantification in these patients send serum separator tube (gold top) for subsequent determinations. ??Contact the Clinical Chemistry Laboratory if there are any questions. Chloride 114(H) 98 - 107 mmol/L [facility] Carbon Dioxide 22 22 - 31 mmol/L [facility] Anion Gap 14 5 - 15 mmol/L [facility] Calcium 9.6 8.5 - 10.5 mg/dL [facility] Est Glomerular Filtration Rate 122 >=60 mL/min/1. 73 m?? [facility] Comment: The eGFR was calculated using the CKD-EPI equation. As with all creatinine based estimates of kidney function, eGFR values calculated with the CKD-EPI equation are not accurate in patients with acute kidney failure, extremes of body mass or the acutely ill. [email or web address] eGFR 141 >=60 mL/min/1. 73 m?? [facility] Comment: The eGFR was calculated using the CKD-EPI equation. As with all creatinine based estimates of kidney function, eGFR values calculated with the CKD-EPI equation are not accurate in patients with acute kidney failure, extremes of body mass or the acutely ill. [email or web address] Blood specimen (specimen) 03/03/2018 12:47 PM EDT 03/03/2018 1:16 PM EDT Narrative Resulting Agency Comment Spec In Lab Reba Linton MD CHEMISTRY ORDERA NOEL Performing Organization Address City/State/[facility] Co de Phone Number [facility] [place] [address] * ECHO COMPLETE (03/02/2018 1:08 PM EDT) EF 65 HEARTLAB SYSTEM Anatomical Region Laterality Modality Other 03/02/2018 Narrative 03/02/2018 1:32 PM EDT Procedure: ?Transthoracic Echocardiogram Patient: ?ISABELLA CARRASCO D ?(Age): 1990(27y) Med Rec#: ? [id number] ?Sex: ?M ? Site Loc: ? [facility] ?Ht / Wt: ??177(cm)/99(kg) Pt. Loc: ?Adult Floor ? BSA: ?2.16 Study Date: ?? 03/02/2018 ?Pt. Type: Inpatient Tape: ? Referring: Reba Linton Referring: HONORIO Reading: Drew Driscoll ([id number]) Grinder Needle Tip: Noel Ash Diagnosis: *Abnormal electrocardiogram [ECG] [EKG] [...] E-wave Vmax ?0.7 ?m/sec ? MV deceleration layx863.6 ?msec ? MV A-wave Vmax ?0.5 ?m/sec [...] ? Mid-Inferior ?Normal ? Mid-Inferoseptal ?Normal ? [place]-Septal ? Normal ? [place]-Anterior ? Normal ? [place]-Lateral ?Normal ? [place]-Inferior ? Normal ? [place]-Tip ?Normal ? This report has been electronically signed by: Drew Driscoll MD ? 03/02/2018 13:32:27 Images reviewed and interpretation verified [facility] Cardiac Ultrasound [facility] Procedure Note Drew Driscoll MD - 03/02/2018 Procedure: Transthoracic Echocardiogram Patient: ISABELLA ARZATE(Age): 1990(27y) Med Rec#: [id number] Sex: M Site Loc: [facility] Ht / Wt: 177(cm)/99(kg) Pt. Loc: Adult Floor BSA: 2.16 Study Date: 03/02/2018 Pt. Type: Inpatient Tape: Referring: Reba Linton Referring: CERUNDOLOAIDA Reading: Drew Driscoll ([id number]) Grinder Needle Tip: Noel Ash Diagnosis: *Abnormal electrocardiogram [ECG] [EKG] [...] MV E-wave Vmax 0.7 m/sec MV deceleration [id number] msec MV A-wave Vmax 0.5 m/sec MV [...] Normal Mid-Posterolateral Normal Mid-Inferior Normal Mid-Inferoseptal Normal [place]-Septal Normal [place]-Anterior Normal [place]-Lateral Normal [place]-Inferior Normal [place]-Tip Normal This report has been electronically signed by: Drew Driscoll MD 03/02/2018 13:32:27 Images reviewed and interpretation verified [facility] Reba Linton MD ECHO ORDERABLES * (ABNORMAL) Basic Metabolic Panel (non-fasting) (03/02/2018 6:26 AM EDT) Glucose 102 65 - 199 mg/dL [facility] Comment:Diabetes: >=200 mg/d L plus symptoms Blood Urea Nitrogen 17 10 - 20 mg/dL [facility] Creatinine 0.64(L) 0.80 - 1.50 mg/dL [facility] Comment:Specimen ultracentri fuged due to gross lipemia Sodium 145 135 - 145 mmol/L [facility] Potassium 3.5 3.5 - 5.0 mmol/L [facility] Comment: Please note: ??Patients with WBC >100,000 may have falsely elevated Potassium levels. ??For accurate Potassium quantification in these patients send serum separator tube (gold top) for subsequent determinations. ??Contact the Clinical Chemistry Laboratory if there are any questions. Chloride 109(H) 98 - 107 mmol/L [facility] Carbon Dioxide 23 22 - 31 mmol/L [facility] Anion Gap 13 5 - 15 mmol/L [facility] Calcium 9.5 8.5 - 10.5 mg/dL [facility] Est Glomerular Filtration Rate 134 >=60 mL/min/1. 73 m?? [facility] Comment: The eGFR was calculated using the CKD-EPI equation. As with all creatinine based estimates of kidney function, eGFR values calculated with the CKD-EPI equation are not accurate in patients with acute kidney failure, extremes of body mass or the acutely ill. [email or web address] eGFR 156 >=60 mL/min/1. 73 m?? [facility] Comment: The eGFR was calculated using the CKD-EPI equation. As with all creatinine based estimates of kidney function, eGFR values calculated with the CKD-EPI equation are not accurate in patients with acute kidney failure, extremes of body mass or the acutely ill. [email or web address] Blood specimen (specimen) 03/02/2018 6:26 AM EDT 03/02/2018 6:42 AM EDT Narrative Resulting Agency Comment Spec In Lab Reba Linton MD CHEMISTRY ORDERA BLES [facility] [place] [address] * Cardiac Enzymes (LEB/CGP) (03/02/2018 6:26 AM EDT) Troponin-T <0.01 0.00 - 0.00 ng/mL [facility] Comment: The 99th percentile for Troponin T is less than 0.01 ng/mL, any detectable cTnT concentration using this assay should be considered elevated. According to the third universal definition of myocardial infarction the following criteria with a clinical presentation consistent with acute myocardial ischemia meets the diagnosis for a myocardial infarction (NM). Detection of a rise and/or fall of cTnT, with at least one value greater than the 99th percentile (> or = 0.01) and with at least one of the following ?? Symptoms of ischemia ?? New or presumed new significant LG-[id number] wave (ST-T) changes or new left bundle [...] additional sample may be indicated. Reference: Third [place] Definition of Myocardial Infarction. Journal of the [place] [employer] 2012;60:1581-98 Creatine Kinase 45 0 - 200 unit/L [facility] Blood specimen (specimen) 03/02/2018 6:26 AM EDT 03/02/2018 6:41 AM EDT Narrative Resulting Agency Comment Spec In Lab Reba Linton MD CHEMISTRY ORDERA BLES Performing Organization Address City/[facility] Co de Phone Number [facility] [place] [address] * EKG 12 Lead (03/01/2018 9:20 AM EDT) Ventricular rate 98 BPM MUSE SYSTEM Atrial Rate 98 BPM MUSE SYSTEM P-R Interval 146 ms MUSE SYSTEM QRS Duration 102 ms MUSE SYSTEM Q-T Interval 350 ms MUSE SYSTEM QTC Calculated (Bezet) 446 ms MUSE SYSTEM Calculated P [place] 26 degrees MUSE SYSTEM Calculated R [place] 62 degrees MUSE SYSTEM Calculated T [place] 40 degrees MUSE SYSTEM INTERPRETATION Normal sinus rhythm T wave abnormality, consider lateral ischemia Abnormal ECG When compared with ECG of 28-FEB-2018 11:26, No significant change was found Confirmed by MD Hernandez, Sacha ([id number]) on 03/01/2018 11:01:50 AM MUSE SYSTEM 03/01/2018 9:20 AM EDT 03/01/2018 11:01 AM EDT Reba Linton MD ECG ORDERABLES Performing Organization Address [facility] Co de Phone Number MUSE SYSTEM * LDL Cholesterol, Direct (03/01/2018 8:35 AM EDT) LDL Cholesterol, Direct 31 mg/dL [facility] Comment: Lowest Risk: <100 mg/dL Lower Risk: 100-129 mg/dL Borderline High Risk: 130-159 mg/dL High Risk: 160-189 mg/dL Very High Risk: >cr=652 mg/dL Blood specimen (specimen) 03/01/2018 8:35 AM EDT 03/01/2018 8:48 AM EDT Narrative Resulting Agency Comment Spec In Lab Reba Linton MD CHEMISTRY ORDERA BLES Performing Organization Address City/[facility]/ZIP Co de Phone Number [facility] [place] [address] * Differential, Automated (03/01/2018 8:35 AM EDT) Neutrophil % 39.2 % [facility] Neutrophil Absolute 2.12 1.70 - 6.10 x10(3)/[facility] Lymph % 45.9 % [facility] Lymphocytes Abs 2.5 0.9 - 3.2 x10(3)/[facility] Monocyte % 10.3 % [facility] Monocyte Abs 0.6 0.3 - 0.9 x10(3)/[facility] Eos % 3.3 % [facility] Eosinophils Abs 0.2 0.0 - 0.4 x10(3)/[facility] Basophil % 0.7 % [facility] Baso Absolute 0.0 0.0 - 0.1 x10(3)/[facility] Immature Gran % 0.60 % [facility] Comment: Immature granulocytes(IG's)percentage and absolute count will include metamyelocytes, myelocytes, and promyelocytes. Blood smears from CBCs yielding IG's will be scanned manually for concordance. If this scan disagrees with the automated IG or if promyelocytes are noted, a manual differential will be performed. Immature Gran Absolute 0.03 0.00 - 0.04 x10(3)/[facility] Blood specimen (specimen) 03/01/2018 8:35 AM EDT 03/01/2018 8:43 AM EDT Narrative Resulting Agency Comment Spec In Lab Reba Linton MD HEMATOLOGY ORDER LYNDSEY Performing Organization Address City/[facility]/ZIP Co de Phone Number [facility] [place] [address] * (ABNORMAL) Hemogram (03/01/2018 8:35 AM EDT) White Blood Cell 5.4 4.0 - 9.5 x10(3)/[facility] Red Blood Cell 4.89 4.58 - 5.54 x10(6)/[facility] Hemoglobin 11.9(L) 13.7 - 16.5 gm/dL [facility] Hematocrit 36.7(L) 40.5 - 48.5 % [facility] Mean Cell Volume 75.1(L) 82.9 - 93.1 fL [facility] Mean Cell Hemoglobin 24.3(L) 27.5 - 32.1 pg [facility] Mean Cell Hemoglobin Concentration 32.4 32.0 - 35.7 gm/dL [facility] Platelet 272 145 - 357 x10(3)/[facility] RDW Standard Deviation 47.2(H) 36.0 - 45.0 [facility] RDW coefficient of variation 17.6(H) 11.4 - 13.8 % [facility] Mean Platelet Volume 10.5 7.6 - 12.9 [facility] NRBC% auto 0.0 % [facility] NRBC Absolute 0.000 0.000 - 0.000 x10(3)/[facility] Blood specimen (specimen) 03/01/2018 8:35 AM EDT 03/01/2018 8:43 AM EDT Narrative Resulting Agency Comment Spec In Lab Reba Linton MD HEMATOLOGY ORDER LYNDSEY [facility] [place] [address] * Lipid Panel (03/01/2018 8:35 AM EDT) Cholesterol, Total 273 mg/dL [facility] Comment: Lower Risk: <200 mg/dL Average Risk: 200-239 mg/dL Higher Risk: >na=267 mg/dL Triglyceride 2,210 mg/dL [facility] Comment: Average Risk/Lower Risk: <150 mg/dL Borderline High Risk: 150-199 mg/dL High Risk: 200-499 mg/dL Very High Risk: >rf=787 mg/dL HDL Cholesterol 13 mg/dL [facility] Comment: Males: ?? Higher Risk: <40 mg/dL Females: ?? HIgher Risk: <50 mg/dL LDL Cholesterol Not Calculated [facility] Comment: Lowest Risk: <100 mg/dL Lower Risk: 100-129 mg/dL Borderline High Risk: 130-159 mg/dL High Risk: 160-189 mg/dL Very High Risk: >mt=846 mg/dL Since a calculated LDL value is not valid for triglycerides greater than 400 mg/dl, a direct LDL determination is performed instead. Lowest Risk: <100 mg/dL Lower Risk: 100-129 mg/dL Borderline High Risk: 130-159 mg/dL High Risk: 160-189 mg/dL Very High Risk: >yq=627 mg/dL Corrected from -182 mg/dL [NA] on 03/01/18 09:31 by Lili Reilly. Cholesterol/HDL Ratio 21.0 ratio [facility] Lipid Interpretation See Note [facility] Comment: Lipid management should be guided by a patient? s ASCVD risk, goals and preferences. ACC/AHA Guidelines recommend high intensity statin if clinical ASCVD or LDL greater than or equal to 190 mg/dL. http://[email or web address]/HII-QOT-[email or web address] Adults aged 40-75 with LDL 70-189 mg/dL should have their 10 year ASCVD risk estimated with the ACC/AHA ASCVD risk welding estimator http://tools.acc.org/GXYIG-Gbzd-Thdlzfmly/ Statin should be discussed if risk greater [...] Lab Reba Linton MD CHEMISTRY ORDERA BLES [facility] [place] [address] * (ABNORMAL) Basic Metabolic Panel (non-fasting) (03/01/2018 8:35 AM EDT) Glucose 109 65 - 199 mg/dL [facility] Comment:Diabetes: >=200 mg/d L plus symptoms Blood Urea Nitrogen 22(H) 10 - 20 mg/dL [facility] Creatinine 0.96 0.80 - 1.50 mg/dL [facility] Comment:Specimen ultracentri fuged due to gross lipemia Sodium 148(H) 135 - 145 mmol/L [facility] Comment:Specimen ultracentri fuged due to gross lipemia Potassium Not Perf 3.5 - 5.0 [facility] Comment: Unable to quantitate due to sample hemolysis. ??Sample redraw suggested. ??Called to Suzi 03/01/18 09:21. mkf Please note: ??Patients with WBC >100,000 may have falsely elevated Potassium levels. ??For accurate Potassium quantification in these patients send serum separator tube (gold top) for subsequent determinations. ??Contact the Clinical Chemistry Laboratory if there are any questions. Chloride 107 98 - 107 mmol/L [facility] Carbon Dioxide 26 22 - 31 mmol/L [facility] Anion Gap 15 5 - 15 mmol/L [facility] Calcium 9.5 8.5 - 10.5 mg/dL [facility] Est Glomerular Filtration Rate 108 >=60 mL/min/1. 73 m?? [facility] Comment: The eGFR was calculated using the CKD-EPI equation. As with all creatinine based estimates of kidney function, eGFR values calculated with the CKD-EPI equation are not accurate in patients with acute kidney failure, extremes of body mass or the acutely ill. [email or web address] eGFR 125 >=60 mL/min/1. 73 m?? [facility] Comment: The eGFR was calculated using the CKD-EPI equation. As with all creatinine based estimates of kidney function, eGFR values calculated with the CKD-EPI equation are not accurate in patients with acute kidney failure, extremes of body mass or the acutely ill. [email or web address] [place] Blood specimen (specimen) 03/01/2018 8:35 AM EDT 03/01/2018 8:42 AM EDT Narrative Resulting Agency Comment Spec In Lab Reba Linton MD CHEMISTRY ORDERA BLES Performing Organization Address [facility] Co de Phone Number [facility] [place] [address] * Blood culture (03/01/2018 8:35 AM EDT) Blood Culture No growth at 5 days. [facility] Blood specimen (specimen) 03/01/2018 8:35 AM EDT 03/01/2018 9:34 AM EDT Narrative Resulting Agency Comment Spec In Lab Reba Linton MD MICROBIOLOGY - B LOOD ORDERABLES Performing Organization Address [facility] Co de Phone Number [facility] [place] [address] * Potassium (02/28/2018 4:20 PM EDT) Potassium 4.1 3.5 - 5.0 mmol/L [facility] Comment: Specimen ultracentrifuged due to [...] MD CHEMISTRY ORDERA BLES Performing Organization Address [facility] Co de Phone Number [facility] [place] [address] * Lavender Tube HOLD (02/28/2018 4:20 PM EDT) Lavender Hold Sample in lab. [facility] Blood specimen (specimen) Venous Draw / Unknown 02/28/2018 4:20 PM EDT 02/28/2018 4:33 PM EDT Reba Linton MD HEMATOLOGY ORDER LYNDSEY Performing Organization Address [facility] Co de Phone Number [facility] [place] [address] * Blood culture (02/28/2018 4:20 PM EDT) Blood Culture No growth at 5 days. [facility] Blood specimen (specimen) 02/28/2018 4:20 PM EDT 02/28/2018 5:06 PM EDT Narrative Resulting Agency Comment Spec In Lab Reba Linton MD MICROBIOLOGY - B LOOD ORDERABLES Performing Organization Address [facility] Co de Phone Number [facility] [place] [address] * (ABNORMAL) Basic Metabolic Panel (non-fasting) (02/28/2018 4:20 PM EDT) Glucose 129 65 - 199 mg/dL [facility] Comment:Diabetes: >=200 mg/d L plus symptoms Blood Urea Nitrogen 15 10 - 20 mg/dL [facility] Creatinine 1.02 0.80 - 1.50 mg/dL [facility] Comment:Specimen ultracentri fuged due to gross lipemia Sodium 147(H) 135 - 145 mmol/L [facility] Comment:Specimen ultracentri fuged due to gross lipemia Potassium Not Perf 3.5 - 5.0 [facility] Comment: Unable to quantitate due to sample hemolysis. ??Sample redraw suggested. called to sarika gomez 02/28/18 17:16 Please note: ??Patients with WBC >100,000 may have falsely elevated Potassium levels. ??For accurate Potassium quantification in these patients send serum separator tube (gold top) for subsequent determinations. ??Contact the Clinical Chemistry Laboratory if there are any questions. Chloride 109(H) 98 - 107 mmol/L [facility] Comment:Specimen ultracentri fuged due to gross lipemia Carbon Dioxide 21(L) 22 - 31 mmol/L [facility] Anion Gap 17(H) 5 - 15 mmol/L [facility] Calcium 9.3 8.5 - 10.5 mg/dL [facility] Est Glomerular Filtration Rate 100 >=60 mL/min/1. 73 m?? [facility] Comment: The eGFR was calculated using the CKD-EPI equation. As with all creatinine based estimates of kidney function, eGFR values calculated with the CKD-EPI equation are not accurate in patients with acute kidney failure, extremes of body mass or the acutely ill. [email or web address] [place] CITYnkf eGFR 116 >=60 mL/min/1. 73 m?? [facility] Comment: The eGFR was calculated using the CKD-EPI equation. As with all creatinine based estimates of kidney function, eGFR values calculated with the CKD-EPI equation are not accurate in patients with acute kidney failure, extremes of body mass or the acutely ill. [email or web address] Blood specimen (specimen) 02/28/2018 4:20 PM EDT 02/28/2018 4:32 PM EDT Narrative Resulting Agency Comment Spec In Lab Reba Linton MD CHEMISTRY ORDERA BLES [facility] [place] [address] * Cardiac Enzymes (LEB/CGP) (02/28/2018 4:20 PM EDT) Pathologist [facility] Troponin-T <0.01 0.00 - 0.00 ng/mL [facility] Comment: The 99th percentile for Troponin T is less than 0.01 ng/mL, any detectable cTnT concentration using this assay should be considered elevated. According to the third universal definition of myocardial infarction the following criteria with a clinical presentation consistent with acute myocardial ischemia meets the diagnosis for a myocardial infarction (NM). Detection of a rise and/or fall of cTnT, with at least one value greater than the 99th percentile (> or = 0.01) and with at least one of the following ?? Symptoms of ischemia ?? New or presumed new significant RL-wftovlo-T wave (ST-T) changes or new left bundle [...] additional sample may be indicated. Reference: Third [place] Definition of Myocardial Infarction. Journal of the [place] [employer] 2012;60:1581-98 Creatine Kinase 69 0 - 200 unit/L [facility] Blood specimen (specimen) 02/28/2018 4:20 PM EDT 02/28/2018 4:32 PM EDT Narrative Resulting Agency Comment Spec In Lab Reba Linton MD CHEMISTRY ORDERA BLES [facility] [place] [address] * (ABNORMAL) Urine culture (02/28/2018 3:53 PM EDT) Pathologist [facility] Urine Culture 10,000-49,000 cfu/ml Citrobacter koseri (Citrobacter diversus)(A) [facility] Organism Citrobacter koseri (Citrobacter diversus)(A) [facility] Urine specimen obtained by clean [...] Sensitive Reba Linton MD [facility] [place] [address] * (ABNORMAL) Urinalysis Microscopic Exam (02/28/2018 3:53 PM EDT) RBC, Urine 2 0 - 3 /HPF [facility] WBC, Urine 24(H) 0 - 3 /HPF [facility] Squamous Epithelial Cells Raw Data, Urine <1 <=4 /HPF [facility] Urine specimen obtained by clean catch procedure (specimen) 02/28/2018 3:53 PM EDT 02/28/2018 4:09 PM EDT Narrative Resulting Agency Comment Spec In Lab Reba Linton MD URINE ORDERABLES [facility] [place] [address] * Urine Hold (02/28/2018 3:53 PM EDT) Hold, Urine Sample in lab. [facility] Urine specimen (specimen) Urine / Unknown 02/28/2018 3:53 PM EDT 02/28/2018 4:09 PM EDT Reba Linton MD URINE ORDERABLES Performing Organization Address [facility] Co de Phone Number [facility] [place] [address] * (ABNORMAL) Urinalysis with reflex Culture (02/28/2018 3:53 PM EDT) Glucose, Urine Dipstick Negative Negative mg/dL [facility] Protein, Urine Dipstick Negative Negative mg/dL [facility] Bilirubin, Urine Dipstick Negative Negative mg/dL [facility] Comment: Clinical correlation required for positive Urine Bilirubin results as false positive may occur with some drugs and drug related products. If a false positive is suspected a serum total bilirubin should be considered if clinically indicated. Urobilinogen, Urine Dipstick Normal Normal mg/dL [facility] pH, Urn (dipstick) 6.0 5.0 - 8.0 [facility] Blood, Urine Dipstick Negative Negative mg/dL [facility] Ketone, Urine Dipstick Negative Negative mg/dL [facility] Nitrite, Urine Dipstick Negative Negative [facility] Leukocytes, Urine Dipstick Small(A) Negative [facility] Appearance, Urine Dipstick Clear Clear [facility] Specific [place] Urine Automated 1.013 1.002 - 1.030 [facility] Color, Urine Dipstick Yellow Yellow [facility] Reflex to Culture Yes [facility] Urine specimen obtained by clean catch procedure (specimen) 02/28/2018 3:53 PM EDT 02/28/2018 4:09 PM EDT Narrative Resulting Agency Comment Spec In Lab Reba Linton MD URINE ORDERABLES Performing Organization Address City/[facility]/ZIP Co de Phone Number [facility] [place] [address] * EKG 12 Lead (02/28/2018 11:26 AM EDT) Ventricular rate 112 BPM MUSE SYSTEM Atrial Rate 112 BPM MUSE SYSTEM P-R Interval 138 ms MUSE SYSTEM QRS Duration 84 ms MUSE SYSTEM Q-T Interval 326 ms MUSE SYSTEM QTC Calculated (Bezet) 444 ms MUSE SYSTEM Calculated P [place] 15 degrees MUSE SYSTEM Calculated R [place] 56 degrees MUSE SYSTEM Calculated T [place] 43 degrees MUSE SYSTEM INTERPRETATION Sinus tachycardia Nonspecific T wave abnormality Abnormal ECG When compared with ECG of 28-FEB-2018 05:43, (unconfirmed) Non-specific change in ST segment in Anterior leads Nonspecific T wave abnormality has replaced inverted T waves in Inferior leads Confirmed by MD Gene, Constantino Jacobs ([id number]) on 02/28/2018 3:58:07 PM MUSE SYSTEM 02/28/2018 11:2 6 AM EDT 02/28/2018 3:58 PM EDT Reba Linton MD ECG ORDERABLES Performing Organization Address City/[facility]/ZIP Co de Phone Number MUSE SYSTEM * Cardiac Enzymes (LEB/CGP) (02/28/2018 9:26 AM EDT) Troponin-T Not Perf 0.00 - 0.00 [facility] Comment: Unable to quantitate due [...] meets the diagnosis for a myocardial infarction (NM). Detection of a rise and/or fall of cTnT, with at least one value greater than the 99th percentile (> or = 0.01) and with at least one of the following ?? Symptoms of ischemia ?? New or presumed new significant BV-khyjzjs-D wave (ST-T) changes or new left bundle [...] additional sample may be indicated. Reference: Third [place] Definition of Myocardial Infarction. Journal of the [place] [employer] 2012;60:1581-98 Creatine Kinase Not Perf 0 - 200 [facility] Comment: Unable to quantitate due to sample hemolysis. ??Sample redraw suggested. Called by: loyda, Read back by: noel urbano, Date/Time:02/28/18 10:14. Blood specimen (specimen) Venous Draw / Unknown 02/28/2018 9:26 AM EDT 02/28/2018 9:32 AM EDT Narrative Resulting Agency Comment Spec In Lab Reba Linton MD CHEMISTRY ORDERA [facility] [place] [address] * (ABNORMAL) Basic Metabolic Panel (non-fasting) (02/28/2018 9:26 AM EDT) Glucose 208(H) 65 - 199 mg/dL [facility] Comment: Specimen ultracentrifuged due to gross lipemia Diabetes: >=200 mg/dL plus symptoms Blood Urea Nitrogen 13 10 - 20 mg/dL [facility] Comment:Specimen ultracentri fuged due to gross lipemia Creatinine 0.89 0.80 - 1.50 mg/dL [facility] Comment:Specimen ultracentri fuged due to gross lipemia Sodium 150(H) 135 - 145 mmol/L [facility] Comment:Specimen ultracentri fuged due to gross lipemia Potassium Not Perf 3.5 - 5.0 [facility] Comment: Unable to quantitate due [...] questions. Chloride 112(H) 98 - 107 mmol/L [facility] Comment:Specimen ultracentri fuged due to gross lipemia Carbon Dioxide 23 22 - 31 mmol/L [facility] Comment:Specimen ultracentri fuged due to gross lipemia Anion Gap 15 5 - 15 mmol/L [facility] Calcium 9.7 8.5 - 10.5 mg/dL [facility] Comment:Specimen ultracentri fuged due to gross lipemia Est Glomerular Filtration Rate 117 >=60 mL/min/1. 73 m?? [facility] Comment: The eGFR was calculated using the CKD-EPI equation. As with all creatinine based estimates of kidney function, eGFR values calculated with the CKD-EPI equation are not accurate in patients with acute kidney failure, extremes of body mass or the acutely ill. [email or web address] [place] CITYnkf eGFR 136 >=60 mL/min/1. 73 m?? [facility] Comment: The eGFR was calculated using the CKD-EPI equation. As with all creatinine based estimates of kidney function, eGFR values calculated with the CKD-EPI equation are not accurate in patients with acute kidney failure, extremes of body mass or the acutely ill. [email or web address] [place] Blood specimen (specimen) 02/28/2018 9:26 AM EDT 02/28/2018 9:32 AM EDT Narrative Resulting Agency Comment Spec In Lab Reba Linton MD CHEMISTRY ORDERA BLES Performing Organization Address [facility] Co de Phone Number [facility] [place] [address] * EKG 12 Lead (02/28/2018 5:43 AM EDT) Ventricular rate 127 BPM MUSE SYSTEM Atrial Rate 127 BPM MUSE SYSTEM P-R Interval 136 ms MUSE SYSTEM QRS Duration 94 ms MUSE SYSTEM Q-T Interval 316 ms MUSE SYSTEM QTC Calculated (Bezet) 459 ms MUSE SYSTEM Calculated P [place] 41 degrees MUSE SYSTEM Calculated R [place] 72 degrees MUSE SYSTEM Calculated T [place] 40 degrees MUSE SYSTEM INTERPRETATION Sinus tachycardia ST & T wave abnormality, consider anterolateral ischemia T wave abnormality, consider inferior ischemia Abnormal ECG When compared with ECG of 05-DEC-2017 17:29, Non-specific change in ST segment in Anterior leads T wave inversion now evident in Inferior leads Nonspecific T wave abnormality now evident in Anterior leads Confirmed by MD Mills Gregory A. ([id number]) on 02/28/2018 3:57:48 PM MUSE SYSTEM 02/28/2018 5:43 AM EDT 02/28/2018 3:57 PM EDT Brenda Greco APRN ECG ORDERABLES Performing Organization Address [facility] de Phone Number MUSE SYSTEM * Potassium (02/27/2018 5:58 AM EDT) [facility] Potassium 4.3 3.5 - 5.0 mmol/L [facility] Comment: Please note: ??Patients with [...] Goldstein MD CHEMISTRY ORDERABLES Performing Organization Address [facility] Co de Phone Number [facility] [place] [address] * (ABNORMAL) Basic Metabolic Panel (non-fasting) (02/27/2018 4:14 AM EDT) Glucose 244(H) 65 - 199 mg/dL [facility] Comment: result rechecked-[facility] Diabetes: >=200 mg/dL plus symptoms Blood Urea Nitrogen 12 10 - 20 mg/dL [facility] Creatinine 0.63(L) 0.80 - 1.50 mg/dL [facility] Sodium 146(H) 135 - 145 mmol/L [facility] Potassium Not Perf 3.5 - 5.0 [facility] Comment: Specimen hemolyzed. Called by: [facility], Read back by: Emerald Rasheed, Date/Time:02/27/18 05:43. Please note: ??Patients with WBC >100,000 may have falsely elevated Potassium levels. ??For accurate Potassium quantification in these patients send serum separator tube (gold top) for subsequent determinations. ??Contact the Clinical Chemistry Laboratory if there are any questions. Chloride 111(H) 98 - 107 mmol/L [facility] Carbon Dioxide 23 22 - 31 mmol/L [facility] Anion Gap 12 5 - 15 mmol/L [facility] Calcium 9.7 8.5 - 10.5 mg/dL [facility] Est Glomerular Filtration Rate 135 >=60 mL/min/1. 73 m?? [facility] Comment: The eGFR was calculated using the CKD-EPI equation. As with all creatinine based estimates of kidney function, eGFR values calculated with the CKD-EPI equation are not accurate in patients with acute kidney failure, extremes of body mass or the acutely ill. [email or web address] eGFR 157 >=60 mL/min/1. 73 m?? [facility] Comment: The eGFR was calculated using the CKD-EPI equation. As with all creatinine based estimates of kidney function, eGFR values calculated with the CKD-EPI equation are not accurate in patients with acute kidney failure, extremes of body mass or the acutely ill. [email or web address] [place]nkf Blood specimen (specimen) 02/27/2018 4:14 AM EDT 02/27/2018 4:55 AM EDT Narrative Resulting Agency Comment Spec In Lab Abimbola Goldstein MD CHEMISTRY ORDERABLES [facility] [place] [address] * (ABNORMAL) Basic Metabolic Panel (non-fasting) (02/24/2018 5:25 AM EDT) Glucose 89 65 - 199 mg/dL [facility] Comment:Diabetes: >=200 mg/d L plus symptoms Blood Urea Nitrogen 22(H) 10 - 20 mg/dL [facility] Creatinine 0.79(L) 0.80 - 1.50 mg/dL [facility] Sodium 146(H) 135 - 145 mmol/L [facility] Potassium 3.5 3.5 - 5.0 mmol/L [facility] Comment: Please note: ??Patients with WBC >100,000 may have falsely elevated Potassium levels. ??For accurate Potassium quantification in these patients send serum separator tube (gold top) for subsequent determinations. ??Contact the Clinical Chemistry Laboratory if there are any questions. Chloride 106 98 - 107 mmol/L [facility] Carbon Dioxide 27 22 - 31 mmol/L [facility] Anion Gap 13 5 - 15 mmol/L [facility] Calcium 9.7 8.5 - 10.5 mg/dL [facility] Est Glomerular Filtration Rate 123 >=60 mL/min/1. 73 m?? [facility] Comment: The eGFR was calculated using the CKD-EPI equation. As with all creatinine based estimates of kidney function, eGFR values calculated with the CKD-EPI equation are not accurate in patients with acute kidney failure, extremes of body mass or the acutely ill. [email or web address] [place]nk[place] eGFR 143 >=60 mL/min/1. 73 m?? [facility] Comment: The eGFR was calculated using the CKD-EPI equation. As with all creatinine based estimates of kidney function, eGFR values calculated with the CKD-EPI equation are not accurate in patients with acute kidney failure, extremes of body mass or the acutely ill. [email or web address] Blood specimen (specimen) 02/24/2018 5:25 AM EDT 02/24/2018 5:39 AM EDT Narrative Resulting Agency Comment Spec In Lab Abimbola Goldstein MD CHEMISTRY ORDERABLES [facility] [place] [address] * (ABNORMAL) Basic Metabolic Panel (non-fasting) (02/23/2018 9:10 AM EDT) Glucose 106 65 - 199 mg/dL [facility] Comment:Diabetes: >=200 mg/d L plus symptoms Blood Urea Nitrogen 19 10 - 20 mg/dL [facility] Creatinine 0.79(L) 0.80 - 1.50 mg/dL [facility] Sodium 150(H) 135 - 145 mmol/L [facility] Potassium 3.9 3.5 - 5.0 mmol/L [facility] Comment: Please note: ??Patients with WBC >100,000 may have falsely elevated Potassium levels. ??For accurate Potassium quantification in these patients send serum separator tube (gold top) for subsequent determinations. ??Contact the Clinical Chemistry Laboratory if there are any questions. Chloride 111(H) 98 - 107 mmol/L [facility] Carbon Dioxide 24 22 - 31 mmol/L [facility] Anion Gap 15 5 - 15 mmol/L [facility] Calcium 10.3 8.5 - 10.5 mg/dL [facility] Est Glomerular Filtration Rate 123 >=60 mL/min/1. 73 m?? [facility] Comment: The eGFR was calculated using the CKD-EPI equation. As with all creatinine based estimates of kidney function, eGFR values calculated with the CKD-EPI equation are not accurate in patients with acute kidney failure, extremes of body mass or the acutely ill. [email or web address] eGFR 143 >=60 mL/min/1. 73 m?? [facility] Comment: The eGFR was calculated using the CKD-EPI equation. As with all creatinine based estimates of kidney function, eGFR values calculated with the CKD-EPI equation are not accurate in patients with acute kidney failure, extremes of body mass or the acutely ill. [email or web address] Blood specimen (specimen) 02/23/2018 9:10 AM EDT 02/23/2018 9:19 AM EDT Narrative Resulting Agency Comment Spec In Lab Maldonado Salazar MD CHEMISTRY ORDERABLES [facility] [place] [address] * (ABNORMAL) Basic Metabolic Panel (non-fasting) (02/20/2018 5:38 AM EDT) Glucose 125 65 - 199 mg/dL [facility] Comment:Diabetes: >=200 mg/d L plus symptoms Blood Urea Nitrogen 15 10 - 20 mg/dL [facility] Creatinine 0.68(L) 0.80 - 1.50 mg/dL [facility] Sodium 142 135 - 145 mmol/L [facility] Potassium 3.4(L) 3.5 - 5.0 mmol/L [facility] Comment: Please note: ??Patients with WBC >100,000 may have falsely elevated Potassium levels. ??For accurate Potassium quantification in these patients send serum separator tube (gold top) for subsequent determinations. ??Contact the Clinical Chemistry Laboratory if there are any questions. Chloride 106 98 - 107 mmol/L [facility] Carbon Dioxide 24 22 - 31 mmol/L [facility] Anion Gap 12 5 - 15 mmol/L [facility] Calcium 9.7 8.5 - 10.5 mg/dL [facility] Est Glomerular Filtration Rate 131 >=60 mL/min/1. 73 m?? [facility] Comment: The eGFR was calculated using the CKD-EPI equation. As with all creatinine based estimates of kidney function, eGFR values calculated with the CKD-EPI equation are not accurate in patients with acute kidney failure, extremes of body mass or the acutely ill. [email or web address] [place] eGFR 152 >=60 mL/min/1. 73 m?? [facility] Comment: The eGFR was calculated using the CKD-EPI equation. As with all creatinine based estimates of kidney function, eGFR values calculated with the CKD-EPI equation are not accurate in patients with acute kidney failure, extremes of body mass or the acutely ill. [email or web address] [place] [place] Blood specimen (specimen) 02/20/2018 5:38 AM EDT 02/20/2018 5:45 AM EDT Narrative Resulting Agency Comment Spec In Lab Maldonado Salazar MD CHEMISTRY ORDERABLES [facility] [place] [address] * (ABNORMAL) Basic Metabolic Panel (non-fasting) (02/17/2018 11:29 AM EDT) Glucose 82 65 - 199 mg/dL [facility] Comment:Diabetes: >=200 mg/d L plus symptoms Blood Urea Nitrogen 17 10 - 20 mg/dL [facility] Creatinine 0.78(L) 0.80 - 1.50 mg/dL [facility] Sodium 144 135 - 145 mmol/L [facility] Potassium 4.0 3.5 - 5.0 mmol/L [facility] Comment: Please note: ??Patients with WBC >100,000 may have falsely elevated Potassium levels. ??For accurate Potassium quantification in these patients send serum separator tube (gold top) for subsequent determinations. ??Contact the Clinical Chemistry Laboratory if there are any questions. Chloride 105 98 - 107 mmol/L [facility] Carbon Dioxide 20(L) 22 - 31 mmol/L [facility] Anion Gap 19(H) 5 - 15 mmol/L [facility] Calcium 9.7 8.5 - 10.5 mg/dL [facility] Est Glomerular Filtration Rate 124 >=60 mL/min/1. 73 m?? [facility] Comment: The eGFR was calculated using the CKD-EPI equation. As with all creatinine based estimates of kidney function, eGFR values calculated with the CKD-EPI equation are not accurate in patients with acute kidney failure, extremes of body mass or the acutely ill. [email or web address] [place] eGFR 143 >=60 mL/min/1. 73 m?? [facility] Comment: The eGFR was calculated using the CKD-EPI equation. As with all creatinine based estimates of kidney function, eGFR values calculated with the CKD-EPI equation are not accurate in patients with acute kidney failure, extremes of body mass or the acutely ill. [email or web address] Blood specimen (specimen) 02/17/2018 11:29 AM EDT 02/17/2018 12:22 PM EDT Narrative Resulting Agency Comment Spec In Lab Maldonado Salazar MD CHEMISTRY ORDERABLES [facility] [place] [address] * Basic Metabolic Panel (non-fasting) (02/16/2018 1:55 PM EDT) Glucose 150 65 - 199 mg/dL [facility] Comment:Diabetes: >=200 mg/d L plus symptoms Blood Urea Nitrogen 20 10 - 20 mg/dL [facility] Creatinine 0.83 0.80 - 1.50 mg/dL [facility] Sodium 143 135 - 145 mmol/L [facility] Potassium 3.7 3.5 - 5.0 mmol/L [facility] Comment: Please note: ??Patients with WBC >100,000 may have falsely elevated Potassium levels. ??For accurate Potassium quantification in these patients send serum separator tube (gold top) for subsequent determinations. ??Contact the Clinical Chemistry Laboratory if there are any questions. Chloride 105 98 - 107 mmol/L [facility] Carbon Dioxide 24 22 - 31 mmol/L [facility] Anion Gap 14 5 - 15 mmol/L [facility] Calcium 9.3 8.5 - 10.5 mg/dL [facility] Est Glomerular Filtration Rate 121 >=60 mL/min/1. 73 m?? [facility] Comment: The eGFR was calculated using the CKD-EPI equation. As with all creatinine based estimates of kidney function, eGFR values calculated with the CKD-EPI equation are not accurate in patients with acute kidney failure, extremes of body mass or the acutely ill. [email or web address] [place] eGFR 140 >=60 mL/min/1. 73 m?? [facility] Comment: The eGFR was calculated using the CKD-EPI equation. As with all creatinine based estimates of kidney function, eGFR values calculated with the CKD-EPI equation are not accurate in patients with acute kidney failure, extremes of body mass or the acutely ill. [email or web address] [place] [place] Blood specimen (specimen) 02/16/2018 1:55 PM EDT 02/16/2018 2:11 PM EDT Narrative Resulting Agency Comment Spec In Lab Maldonado Salazar MD CHEMISTRY ORDERABLES [facility] [place] [address] * (ABNORMAL) Basic Metabolic Panel (non-fasting) (02/15/2018 9:37 AM EDT) Glucose 90 65 - 199 mg/dL [facility] Comment:Diabetes: >=200 mg/d L plus symptoms Blood Urea Nitrogen 16 10 - 20 mg/dL [facility] Creatinine 0.88 0.80 - 1.50 mg/dL [facility] Sodium 150(H) 135 - 145 mmol/L [facility] Potassium 4.0 3.5 - 5.0 mmol/L [facility] Comment: Please note: ??Patients with WBC >100,000 may have falsely elevated Potassium levels. ??For accurate Potassium quantification in these patients send serum separator tube (gold top) for subsequent determinations. ??Contact the Clinical Chemistry Laboratory if there are any questions. Chloride 111(H) 98 - 107 mmol/L [facility] Carbon Dioxide 21(L) 22 - 31 mmol/L [facility] Anion Gap 18(H) 5 - 15 mmol/L [facility] Calcium 9.9 8.5 - 10.5 mg/dL [facility] Est Glomerular Filtration Rate 118 >=60 mL/min/1. 73 m?? [facility] Comment: The eGFR was calculated using the CKD-EPI equation. As with all creatinine based estimates of kidney function, eGFR values calculated with the CKD-EPI equation are not accurate in patients with acute kidney failure, extremes of body mass or the acutely ill. [email or web address] eGFR 136 >=60 mL/min/1. 73 m?? [facility] Comment: The eGFR was calculated using the CKD-EPI equation. As with all creatinine based estimates of kidney function, eGFR values calculated with the CKD-EPI equation are not accurate in patients with acute kidney failure, extremes of body mass or the acutely ill. [email or web address] Blood specimen (specimen) 02/15/2018 9:37 AM EDT 02/15/2018 10:01 AM EDT Narrative Resulting Agency Comment Spec In Lab Maldonado Salazar MD CHEMISTRY ORDERABLES [facility] [place] [address] * (ABNORMAL) Basic Metabolic Panel (non-fasting) (02/14/2018 11:38 AM EDT) Glucose 261(H) 65 - 199 mg/dL [facility] Comment:Diabetes: >=200 mg/d L plus symptoms Blood Urea Nitrogen 14 10 - 20 mg/dL [facility] Creatinine 0.89 0.80 - 1.50 mg/dL [facility] Sodium 150(H) 135 - 145 mmol/L [facility] Potassium 4.1 3.5 - 5.0 mmol/L [facility] Comment: Please note: ??Patients with WBC >100,000 may have falsely elevated Potassium levels. ??For accurate Potassium quantification in these patients send serum separator tube (gold top) for subsequent determinations. ??Contact the Clinical Chemistry Laboratory if there are any questions. Chloride 112(H) 98 - 107 mmol/L [facility] Carbon Dioxide 22 22 - 31 mmol/L [facility] Anion Gap 16(H) 5 - 15 mmol/L [facility] Calcium 9.8 8.5 - 10.5 mg/dL [facility] Est Glomerular Filtration Rate 117 >=60 mL/min/1. 73 m?? [facility] Comment: The eGFR was calculated using the CKD-EPI equation. As with all creatinine based estimates of kidney function, eGFR values calculated with the CKD-EPI equation are not accurate in patients with acute kidney failure, extremes of body mass or the acutely ill. [email or web address] [place] eGFR 136 >=60 mL/min/1. 73 m?? [facility] Comment: The eGFR was calculated using the CKD-EPI equation. As with all creatinine based estimates of kidney function, eGFR values calculated with the CKD-EPI equation are not accurate in patients with acute kidney failure, extremes of body mass or the acutely ill. [email or web address] [email or web address] Blood specimen (specimen) 02/14/2018 11:38 AM EDT 02/14/2018 11:44 AM EDT Narrative Resulting Agency Comment Spec In Lab Maldonado Salazar MD CHEMISTRY ORDERABLES [facility] [place] [address] * (ABNORMAL) Basic Metabolic Panel (non-fasting) (02/14/2018 6:10 AM EDT) Glucose 159 65 - 199 mg/dL [facility] Comment:Diabetes: >=200 mg/d L plus symptoms Blood Urea Nitrogen 15 10 - 20 mg/dL [facility] Creatinine 0.62(L) 0.80 - 1.50 mg/dL [facility] Sodium 151(H) 135 - 145 mmol/L [facility] Potassium 3.8 3.5 - 5.0 mmol/L [facility] Comment: Please note: ??Patients with WBC >100,000 may have falsely elevated Potassium levels. ??For accurate Potassium quantification in these patients send serum separator tube (gold top) for subsequent determinations. ??Contact the Clinical Chemistry Laboratory if there are any questions. Chloride 112(H) 98 - 107 mmol/L [facility] Carbon Dioxide 24 22 - 31 mmol/L [facility] Anion Gap 15 5 - 15 mmol/L [facility] Calcium 10.0 8.5 - 10.5 mg/dL [facility] Est Glomerular Filtration Rate 136 >=60 mL/min/1. 73 m?? [facility] Comment: The eGFR was calculated using the CKD-EPI equation. As with all creatinine based estimates of kidney function, eGFR values calculated with the CKD-EPI equation are not accurate in patients with acute kidney failure, extremes of body mass or the acutely ill. [email or web address] eGFR 158 >=60 mL/min/1. 73 m?? [facility] Comment: The eGFR was calculated using the CKD-EPI equation. As with all creatinine based estimates of kidney function, eGFR values calculated with the CKD-EPI equation are not accurate in patients with acute kidney failure, extremes of body mass or the acutely ill. [email or web address] Blood specimen (specimen) 02/14/2018 6:10 AM EDT 02/14/2018 6:26 AM EDT Narrative Resulting Agency Comment Spec In Lab Christopher Stanley MD CHEMISTRY ORDERABL ES [facility] [place] [address] * (ABNORMAL) Basic Metabolic Panel (non-fasting) (02/11/2018 7:23 AM EDT) Glucose 91 65 - 199 mg/dL [facility] Comment:Diabetes: >=200 mg/d L plus symptoms Blood Urea Nitrogen 15 10 - 20 mg/dL [facility] Creatinine 0.64(L) 0.80 - 1.50 mg/dL [facility] Sodium 145 135 - 145 mmol/L [facility] Potassium 3.5 3.5 - 5.0 mmol/L [facility] Comment: Please note: ??Patients with WBC >100,000 may have falsely elevated Potassium levels. ??For accurate Potassium quantification in these patients send serum separator tube (gold top) for subsequent determinations. ??Contact the Clinical Chemistry Laboratory if there are any questions. Chloride 106 98 - 107 mmol/L [facility] Carbon Dioxide 23 22 - 31 mmol/L [facility] Anion Gap 16(H) 5 - 15 mmol/L [facility] Calcium 9.4 8.5 - 10.5 mg/dL [facility] Est Glomerular Filtration Rate 134 >=60 mL/min/1. 73 m?? [facility] Comment: The eGFR was calculated using the CKD-EPI equation. As with all creatinine based estimates of kidney function, eGFR values calculated with the CKD-EPI equation are not accurate in patients with acute kidney failure, extremes of body mass or the acutely ill. [email or web address] eGFR 156 >=60 mL/min/1. 73 m?? [facility] Comment: The eGFR was calculated using the CKD-EPI equation. As with all creatinine based estimates of kidney function, eGFR values calculated with the CKD-EPI equation are not accurate in patients with acute kidney failure, extremes of body mass or the acutely ill. [email or web address] Blood specimen (specimen) 02/11/2018 7:23 AM EDT 02/11/2018 7:30 AM EDT Narrative Resulting Agency Comment Spec In Lab Christopher Stanley MD CHEMISTRY ORDERABL ES [facility] [place] [address] * (ABNORMAL) Basic Metabolic Panel (non-fasting) (02/08/2018 5:53 AM EDT) Glucose 89 65 - 199 mg/dL [facility] Comment:Diabetes: >=200 mg/d L plus symptoms Blood Urea Nitrogen 17 10 - 20 mg/dL [facility] Creatinine 0.88 0.80 - 1.50 mg/dL [facility] Sodium 144 135 - 145 mmol/L [facility] Potassium 3.6 3.5 - 5.0 mmol/L [facility] Comment: Please note: ??Patients with WBC >100,000 may have falsely elevated Potassium levels. ??For accurate Potassium quantification in these patients send serum separator tube (gold top) for subsequent determinations. ??Contact the Clinical Chemistry Laboratory if there are any questions. Chloride 103 98 - 107 mmol/L [facility] Carbon Dioxide 24 22 - 31 mmol/L [facility] Anion Gap 17(H) 5 - 15 mmol/L [facility] Calcium 9.7 8.5 - 10.5 mg/dL [facility] Est Glomerular Filtration Rate 118 >=60 mL/min/1. 73 m?? [facility] Comment: The eGFR was calculated using the CKD-EPI equation. As with all creatinine based estimates of kidney function, eGFR values calculated with the CKD-EPI equation are not accurate in patients with acute kidney failure, extremes of body mass or the acutely ill. [email or web address] [email or web address] eGFR 136 >=60 mL/min/1. 73 m?? [facility] Comment: The eGFR was calculated using the CKD-EPI equation. As with all creatinine based estimates of kidney function, eGFR values calculated with the CKD-EPI equation are not accurate in patients with acute kidney failure, extremes of body mass or the acutely ill. [email or web address] Blood specimen (specimen) 02/08/2018 5:53 AM EDT 02/08/2018 6:41 AM EDT Narrative Resulting Agency Comment Spec In Lab Fran Gilliam MD CHEMISTRY ORDERABL ES Performing Organization Address [facility] Co de Phone Number [facility] [place] [place] [address] * Lavender Tube HOLD (02/06/2018 11:17 AM EDT) Lavender Hold Sample in lab. [facility] Blood specimen (specimen) Venous Draw / Unknown 02/06/2018 11:17 AM EDT 02/06/2018 11:43 AM EDT Fran Gilliam MD HEMATOLOGY ORDERAB LES Performing Organization Address [facility] Co de Phone Number [facility] [place] [address] * (ABNORMAL) Basic Metabolic Panel (non-fasting) (02/06/2018 11:17 AM EDT) Glucose 104 65 - 199 mg/dL [facility] Comment:Diabetes: >=200 mg/d L plus symptoms Blood Urea Nitrogen 15 10 - 20 mg/dL [facility] Creatinine 0.74(L) 0.80 - 1.50 mg/dL [facility] Sodium 143 135 - 145 mmol/L [facility] Potassium 3.9 3.5 - 5.0 mmol/L [facility] Comment: Please note: ??Patients with WBC >100,000 may have falsely elevated Potassium levels. ??For accurate Potassium quantification in these patients send serum separator tube (gold top) for subsequent determinations. ??Contact the Clinical Chemistry Laboratory if there are any questions. Chloride 102 98 - 107 mmol/L [facility] Carbon Dioxide 23 22 - 31 mmol/L [facility] Anion Gap 18(H) 5 - 15 mmol/L [facility] Calcium 9.6 8.5 - 10.5 mg/dL [facility] Est Glomerular Filtration Rate 126 >=60 mL/min/1. 73 m?? [facility] Comment: The eGFR was calculated using the CKD-EPI equation. As with all creatinine based estimates of kidney function, eGFR values calculated with the CKD-EPI equation are not accurate in patients with acute kidney failure, extremes of body mass or the acutely ill. [email or web address] eGFR 147 >=60 mL/min/1. 73 m?? [facility] Comment: The eGFR was calculated using the CKD-EPI equation. As with all creatinine based estimates of kidney function, eGFR values calculated with the CKD-EPI equation are not accurate in patients with acute kidney failure, extremes of body mass or the acutely ill. [email or web address] Blood specimen (specimen) 02/06/2018 11:17 AM EDT 02/06/2018 11:43 AM EDT Narrative Resulting Agency Comment Spec In Lab Fran Gilliam MD CHEMISTRY ORDERABL ES [facility] [place] [address] * (ABNORMAL) Basic Metabolic Panel (non-fasting) (02/04/2018 6:30 AM EDT) Glucose 93 65 - 199 mg/dL [facility] Comment:Diabetes: >=200 mg/d L plus symptoms Blood Urea Nitrogen 15 10 - 20 mg/dL [facility] Creatinine 0.70(L) 0.80 - 1.50 mg/dL [facility] Sodium 140 135 - 145 mmol/L [facility] Potassium 3.6 3.5 - 5.0 mmol/L [facility] Comment: Please note: ??Patients with WBC >100,000 may have falsely elevated Potassium levels. ??For accurate Potassium quantification in these patients send serum separator tube (gold top) for subsequent determinations. ??Contact the Clinical Chemistry Laboratory if there are any questions. Chloride 100 98 - 107 mmol/L [facility] Carbon Dioxide 23 22 - 31 mmol/L [facility] Anion Gap 17(H) 5 - 15 mmol/L [facility] Calcium 9.8 8.5 - 10.5 mg/dL [facility] Est Glomerular Filtration Rate 129 >=60 mL/min/1. 73 m?? [facility] Comment: The eGFR was calculated using the CKD-EPI equation. As with all creatinine based estimates of kidney function, eGFR values calculated with the CKD-EPI equation are not accurate in patients with acute kidney failure, extremes of body mass or the acutely ill. [email or web address] eGFR 150 >=60 mL/min/1. 73 m?? [facility] Comment: The eGFR was calculated using the CKD-EPI equation. As with all creatinine based estimates of kidney function, eGFR values calculated with the CKD-EPI equation are not accurate in patients with acute kidney failure, extremes of body mass or the acutely ill. [email or web address] Blood specimen (specimen) 02/04/2018 6:30 AM EDT 02/04/2018 6:44 AM EDT Narrative Resulting Agency Comment Spec In Lab Fran Gilliam MD CHEMISTRY ORDERABL ES [facility] [place] [address] * (ABNORMAL) Basic Metabolic Panel (non-fasting) (02/02/2018 9:34 AM EDT) Glucose 107 65 - 199 mg/dL [facility] Comment:Diabetes: >=200 mg/d L plus symptoms Blood Urea Nitrogen 13 10 - 20 mg/dL [facility] Creatinine 0.76(L) 0.80 - 1.50 mg/dL [facility] Sodium 144 135 - 145 mmol/L [facility] Potassium 3.6 3.5 - 5.0 mmol/L [facility] Comment: Please note: ??Patients with WBC >100,000 may have falsely elevated Potassium levels. ??For accurate Potassium quantification in these patients send serum separator tube (gold top) for subsequent determinations. ??Contact the Clinical Chemistry Laboratory if there are any questions. Chloride 104 98 - 107 mmol/L [facility] Carbon Dioxide 24 22 - 31 mmol/L [facility] Anion Gap 16(H) 5 - 15 mmol/L [facility] Calcium 9.8 8.5 - 10.5 mg/dL [facility] Est Glomerular Filtration Rate 125 >=60 mL/min/1. 73 m?? [facility] Comment: The eGFR was calculated using the CKD-EPI equation. As with all creatinine based estimates of kidney function, eGFR values calculated with the CKD-EPI equation are not accurate in patients with acute kidney failure, extremes of body mass or the acutely ill. [email or web address] eGFR 145 >=60 mL/min/1. 73 m?? [facility] Comment: The eGFR was calculated using the CKD-EPI equation. As with all creatinine based estimates of kidney function, eGFR values calculated with the CKD-EPI equation are not accurate in patients with acute kidney failure, extremes of body mass or the acutely ill. [email or web address] Blood specimen (specimen) 02/02/2018 9:34 AM EDT 02/02/2018 9:49 AM EDT Narrative Resulting Agency Comment Spec In Lab Noah Menard MD CHEMISTRY ORDERABLES [facility] [place] [address] * (ABNORMAL) Basic Metabolic Panel (non-fasting) (02/01/2018 11:47 AM EDT) Glucose 119 65 - 199 mg/dL [facility] Comment:Diabetes: >=200 mg/d L plus symptoms Blood Urea Nitrogen 13 10 - 20 mg/dL [facility] Creatinine 0.69(L) 0.80 - 1.50 mg/dL [facility] Sodium 144 135 - 145 mmol/L [facility] Potassium 3.9 3.5 - 5.0 mmol/L [facility] Comment: Please note: ??Patients with WBC >100,000 may have falsely elevated Potassium levels. ??For accurate Potassium quantification in these patients send serum separator tube (gold top) for subsequent determinations. ??Contact the Clinical Chemistry Laboratory if there are any questions. Chloride 106 98 - 107 mmol/L [facility] Carbon Dioxide 22 22 - 31 mmol/L [facility] Anion Gap 16(H) 5 - 15 mmol/L [facility] Calcium 9.7 8.5 - 10.5 mg/dL [facility] Est Glomerular Filtration Rate 130 >=60 mL/min/1. 73 m?? [facility] Comment: The eGFR was calculated using the CKD-EPI equation. As with all creatinine based estimates of kidney function, eGFR values calculated with the CKD-EPI equation are not accurate in patients with acute kidney failure, extremes of body mass or the acutely ill. [email or web address] [email or web address] eGFR 151 >=60 mL/min/1. 73 m?? [facility] Comment: The eGFR was calculated using the CKD-EPI equation. As with all creatinine based estimates of kidney function, eGFR values calculated with the CKD-EPI equation are not accurate in patients with acute kidney failure, extremes of body mass or the acutely ill. [email or web address] [place] Blood specimen (specimen) 02/01/2018 11:47 AM EDT 02/01/2018 12:00 PM EDT Narrative Resulting Agency Comment Spec In Lab Noah Menard MD CHEMISTRY ORDERABLES [facility] [place] [address] * (ABNORMAL) Basic Metabolic Panel (non-fasting) (01/31/2018 6:31 AM EDT) Glucose 99 65 - 199 mg/dL [facility] Comment:Diabetes: >=200 mg/d L plus symptoms Blood Urea Nitrogen 16 10 - 20 mg/dL [facility] Creatinine 0.66(L) 0.80 - 1.50 mg/dL [facility] Sodium 142 135 - 145 mmol/L [facility] Potassium 3.8 3.5 - 5.0 mmol/L [facility] Comment: Please note: ??Patients with WBC >100,000 may have falsely elevated Potassium levels. ??For accurate Potassium quantification in these patients send serum separator tube (gold top) for subsequent determinations. ??Contact the Clinical Chemistry Laboratory if there are any questions. Chloride 105 98 - 107 mmol/L [facility] Carbon Dioxide 22 22 - 31 mmol/L [facility] Anion Gap 15 5 - 15 mmol/L [facility] Calcium 9.6 8.5 - 10.5 mg/dL [facility] Est Glomerular Filtration Rate 132 >=60 mL/min/1. 73 m?? [facility] Comment: The eGFR was calculated using the CKD-EPI equation. As with all creatinine based estimates of kidney function, eGFR values calculated with the CKD-EPI equation are not accurate in patients with acute kidney failure, extremes of body mass or the acutely ill. [email or web address] eGFR 154 >=60 mL/min/1. 73 m?? [facility] Comment: The eGFR was calculated using the CKD-EPI equation. As with all creatinine based estimates of kidney function, eGFR values calculated with the CKD-EPI equation are not accurate in patients with acute kidney failure, extremes of body mass or the acutely ill. [email or web address] Blood specimen (specimen) 01/31/2018 6:31 AM EDT 01/31/2018 6:51 AM EDT Narrative Resulting Agency Comment Spec In Lab Noah Menard MD CHEMISTRY ORDERABLES [facility] [place] [address] * (ABNORMAL) Basic Metabolic Panel (non-fasting) (01/30/2018 4:49 AM EDT) Glucose 98 65 - 199 mg/dL [facility] Comment:Diabetes: >=200 mg/d L plus symptoms Blood Urea Nitrogen 12 10 - 20 mg/dL [facility] Creatinine 0.62(L) 0.80 - 1.50 mg/dL [facility] Sodium 140 135 - 145 mmol/L [facility] Potassium 3.8 3.5 - 5.0 mmol/L [facility] Comment: Please note: ??Patients with WBC >100,000 may have falsely elevated Potassium levels. ??For accurate Potassium quantification in these patients send serum separator tube (gold top) for subsequent determinations. ??Contact the Clinical Chemistry Laboratory if there are any questions. Chloride 104 98 - 107 mmol/L [facility] Carbon Dioxide 21(L) 22 - 31 mmol/L [facility] Anion Gap 15 5 - 15 mmol/L [facility] Calcium 9.9 8.5 - 10.5 mg/dL [facility] Est Glomerular Filtration Rate 136 >=60 mL/min/1. 73 m?? [facility] Comment: The eGFR was calculated using the CKD-EPI equation. As with all creatinine based estimates of kidney function, eGFR values calculated with the CKD-EPI equation are not accurate in patients with acute kidney failure, extremes of body mass or the acutely ill. [email or web address] [place] eGFR 158 >=60 mL/min/1. 73 m?? [facility] Comment: The eGFR was calculated using the CKD-EPI equation. As with all creatinine based estimates of kidney function, eGFR values calculated with the CKD-EPI equation are not accurate in patients with acute kidney failure, extremes of body mass or the acutely ill. [email or web address] [place] [place] Blood specimen (specimen) 01/30/2018 4:49 AM EDT 01/30/2018 4:55 AM EDT Narrative Resulting Agency Comment Spec In Lab Noah Menard MD CHEMISTRY ORDERABLES Performing Organization Address City/State/[facility] Co de Phone Number [facility] [place] [address] * (ABNORMAL) Basic Metabolic Panel (non-fasting) (01/29/2018 6:36 AM EDT) Glucose 113 65 - 199 mg/dL [facility] Comment:Diabetes: >=200 mg/d L plus symptoms Blood Urea Nitrogen 15 10 - 20 mg/dL [facility] Creatinine 0.72(L) 0.80 - 1.50 mg/dL [facility] Sodium 143 135 - 145 mmol/L [facility] Potassium 3.9 3.5 - 5.0 mmol/L [facility] Comment: Please note: ??Patients with WBC >100,000 may have falsely elevated Potassium levels. ??For accurate Potassium quantification in these patients send serum separator tube (gold top) for subsequent determinations. ??Contact the Clinical Chemistry Laboratory if there are any questions. Chloride 107 98 - 107 mmol/L [facility] Carbon Dioxide 21(L) 22 - 31 mmol/L [facility] Anion Gap 15 5 - 15 mmol/L [facility] Calcium 9.5 8.5 - 10.5 mg/dL [facility] Est Glomerular Filtration Rate 128 >=60 mL/min/1. 73 m?? [facility] Comment: The eGFR was calculated using the CKD-EPI equation. As with all creatinine based estimates of kidney function, eGFR values calculated with the CKD-EPI equation are not accurate in patients with acute kidney failure, extremes of body mass or the acutely ill. [email or web address] eGFR 148 >=60 mL/min/1. 73 m?? [facility] Comment: The eGFR was calculated using the CKD-EPI equation. As with all creatinine based estimates of kidney function, eGFR values calculated with the CKD-EPI equation are not accurate in patients with acute kidney failure, extremes of body mass or the acutely ill. [email or web address] [place] [place] Blood specimen (specimen) 01/29/2018 6:36 AM EDT 01/29/2018 6:49 AM EDT Narrative Resulting Agency Comment Spec In Lab Noah Menard MD CHEMISTRY ORDERABLES [facility] [place] [address] * (ABNORMAL) Basic Metabolic Panel (non-fasting) (01/28/2018 8:26 AM EDT) Glucose 112 65 - 199 mg/dL [facility] Comment:Diabetes: >=200 mg/d L plus symptoms Blood Urea Nitrogen 22(H) 10 - 20 mg/dL [facility] Creatinine 1.04 0.80 - 1.50 mg/dL [facility] Sodium 142 135 - 145 mmol/L [facility] Potassium 3.4(L) 3.5 - 5.0 mmol/L [facility] Comment: Please note: ??Patients with WBC >100,000 may have falsely elevated Potassium levels. ??For accurate Potassium quantification in these patients send serum separator tube (gold top) for subsequent determinations. ??Contact the Clinical Chemistry Laboratory if there are any questions. Chloride 101 98 - 107 mmol/L [facility] Carbon Dioxide 23 22 - 31 mmol/L [facility] Anion Gap 18(H) 5 - 15 mmol/L [facility] Calcium 9.3 8.5 - 10.5 mg/dL [facility] Est Glomerular Filtration Rate 98 >=60 mL/min/1. 73 m?? [facility] Comment: The eGFR was calculated using the CKD-EPI equation. As with all creatinine based estimates of kidney function, eGFR values calculated with the CKD-EPI equation are not accurate in patients with acute kidney failure, extremes of body mass or the acutely ill. http://Unifysquare/Qoolep http://Unifysquare/MCnkf eGFR 114 >=60 mL/min/1. 73 m?? [facility] Comment: The eGFR was calculated using the CKD-EPI equation. As with all creatinine based estimates of kidney function, eGFR values calculated with the CKD-EPI equation are not accurate in patients with acute kidney failure, extremes of body mass or the acutely ill. http://Unifysquare/SpeechCyclenkdep http://Unifysquare/DHMCnkf Blood specimen (specimen) 01/28/2018 8:26 AM EDT 01/28/2018 8:31 AM EDT Narrative Resulting Agency Comment Spec In Lab Noah Menard MD CHEMISTRY ORDERABLES [facility] [place] [address] * (ABNORMAL) Electrolytes panel (01/27/2018 6:24 AM EDT) Sodium 149(H) 135 - 145 mmol/L [facility] Potassium 3.8 3.5 - 5.0 mmol/L [facility] Comment: Please note: ??Patients with WBC >100,000 may have falsely elevated Potassium levels. ??For accurate Potassium quantification in these patients send serum separator tube (gold top) for subsequent determinations. ??Contact the Clinical Chemistry Laboratory if there are any questions. Chloride 109(H) 98 - 107 mmol/L [facility] Carbon Dioxide 25 22 - 31 mmol/L [facility] Anion Gap 15 5 - 15 mmol/L [facility] Blood specimen (specimen) 01/27/2018 6:24 AM EDT 01/27/2018 6:39 AM EDT Narrative Resulting Agency Comment Spec In Lab Crista Aguilar MD CHEMISTRY ORDERABLE S Performing Organization Address [facility] Co de Phone Number [facility] [place] [place] [address] * T4, free (01/26/2018 6:13 AM EDT) Free T4 0.95 0.93 - 1.70 ng/dL [facility] Blood specimen (specimen) 01/26/2018 6:13 AM EDT 01/26/2018 6:24 AM EDT Narrative Resulting Agency Comment Spec In Lab Crista Aguilar MD CHEMISTRY ORDERABLE S Performing Organization Address [facility] Co de Phone Number [facility] [place] [address] * (ABNORMAL) Electrolytes panel (01/25/2018 6:28 AM EDT) Sodium 145 135 - 145 mmol/L [facility] Potassium 3.9 3.5 - 5.0 mmol/L [facility] Comment: Please note: ??Patients with WBC >100,000 may have falsely elevated Potassium levels. ??For accurate Potassium quantification in these patients send serum separator tube (gold top) for subsequent determinations. ??Contact the Clinical Chemistry Laboratory if there are any questions. Chloride 104 98 - 107 mmol/L [facility] Carbon Dioxide 25 22 - 31 mmol/L [facility] Anion Gap 16(H) 5 - 15 mmol/L [facility] Blood specimen (specimen) 01/25/2018 6:28 AM EDT 01/25/2018 6:41 AM EDT Narrative Resulting Agency Comment Spec In Lab Crista Aguilar MD CHEMISTRY ORDERABLE S Performing Organization Address [facility]/ZIP Co de Phone Number [facility] [place] [address] * T4, free (01/23/2018 6:11 AM EDT) Free T4 0.94 0.93 - 1.70 ng/dL [facility] Blood specimen (specimen) Venous Draw / Unknown 01/23/2018 6:11 AM EDT 01/23/2018 6:42 AM EDT Narrative Resulting Agency Comment Spec In Lab Yadi Mccauley MD CHEMISTRY ORDERAB LES Performing Organization Address [facility] Co de Phone Number [facility] [place] [address] * (ABNORMAL) Electrolytes panel (01/23/2018 6:11 AM EDT) Sodium 144 135 - 145 mmol/L [facility] Potassium 3.9 3.5 - 5.0 mmol/L [facility] Comment: Please note: ??Patients with WBC >100,000 may have falsely elevated Potassium levels. ??For accurate Potassium quantification in these patients send serum separator tube (gold top) for subsequent determinations. ??Contact the Clinical Chemistry Laboratory if there are any questions. Chloride 106 98 - 107 mmol/L [facility] Carbon Dioxide 22 22 - 31 mmol/L [facility] Anion Gap 16(H) 5 - 15 mmol/L [facility] Blood specimen (specimen) 01/23/2018 6:11 AM EDT 01/23/2018 6:37 AM EDT Narrative Resulting Agency Comment Spec In Lab Crista Aguilar MD CHEMISTRY ORDERABLE S Performing Organization Address [facility] Co de Phone Number [facility] [place] [address] * (ABNORMAL) Electrolytes panel (01/21/2018 4:34 AM EDT) Sodium 139 135 - 145 mmol/L [facility] Potassium 4.0 3.5 - 5.0 mmol/L [facility] Comment: Please note: ??Patients with WBC >100,000 may have falsely elevated Potassium levels. ??For accurate Potassium quantification in these patients send serum separator tube (gold top) for subsequent determinations. ??Contact the Clinical Chemistry Laboratory if there are any questions. Chloride 103 98 - 107 mmol/L [facility] Carbon Dioxide 20(L) 22 - 31 mmol/L [facility] Anion Gap 16(H) 5 - 15 mmol/L [facility] Blood specimen (specimen) 01/21/2018 4:34 AM EDT 01/21/2018 4:55 AM EDT Narrative Resulting Agency Comment Spec In Lab Crista Aguilar MD CHEMISTRY ORDERABLE S Performing Organization Address [facility] Co de Phone Number [facility] [place] [address] * (ABNORMAL) Electrolytes panel (01/19/2018 7:21 AM EDT) Sodium 142 135 - 145 mmol/L [facility] Potassium 3.6 3.5 - 5.0 mmol/L [facility] Comment: Please note: ??Patients with WBC >100,000 may have falsely elevated Potassium levels. ??For accurate Potassium quantification in these patients send serum separator tube (gold top) for subsequent determinations. ??Contact the Clinical Chemistry Laboratory if there are any questions. Chloride 103 98 - 107 mmol/L [facility] Carbon Dioxide 23 22 - 31 mmol/L [facility] Anion Gap 16(H) 5 - 15 mmol/L [facility] Blood specimen (specimen) 01/19/2018 7:21 AM EDT 01/19/2018 7:26 AM EDT Narrative Resulting Agency Comment Spec In Lab Crista Aguilar MD CHEMISTRY ORDERABLE S Performing Organization Address [facility] Co de Phone Number [facility] [place] [address] * (ABNORMAL) Electrolytes panel (01/17/2018 5:17 AM EDT) Sodium 140 135 - 145 mmol/L [facility] Potassium 3.4(L) 3.5 - 5.0 mmol/L [facility] Comment: Please note: ??Patients with WBC >100,000 may have falsely elevated Potassium levels. ??For accurate Potassium quantification in these patients send serum separator tube (gold top) for subsequent determinations. ??Contact the Clinical Chemistry Laboratory if there are any questions. Chloride 102 98 - 107 mmol/L [facility] Carbon Dioxide 24 22 - 31 mmol/L [facility] Anion Gap 14 5 - 15 mmol/L [facility] Blood specimen (specimen) 01/17/2018 5:17 AM EDT 01/17/2018 5:31 AM EDT Narrative Resulting Agency Comment Spec In Lab Crista Aguilar MD CHEMISTRY ORDERABLE S Performing Organization Address [facility]/ZIP Co de Phone Number [facility] [place] [address] * (ABNORMAL) Differential, Automated (01/16/2018 5:02 AM EDT) Neutrophil % 40.0 % [facility] Neutrophil Absolute 2.01 1.70 - 6.10 x10(3)/mc L [facility] Lymph % 43.8 % [facility] Lymphocytes Abs 2.2 0.9 - 3.2 x10(3)/mc L [facility] Monocyte % 10.2 % [facility] Monocyte Abs 0.5 0.3 - 0.9 x10(3)/[facility] Eos % 4.2 % [facility] Eosinophils Abs 0.2 0.0 - 0.4 x10(3)/[facility] Basophil % 0.8 % [facility] Baso Absolute 0.0 0.0 - 0.1 x10(3)/[facility] Immature Gran % 1.00 % [facility] Comment: Immature granulocytes(IG's)percentage and absolute [...] Lab Crista Aguilar MD HEMATOLOGY ORDERABL ES [facility] [place] [address] * (ABNORMAL) Hemogram (01/16/2018 5:02 AM EDT) White Blood Cell 5.0 4.0 - 9.5 x10(3)/[facility] Red Blood Cell 4.81 4.58 - 5.54 x10(6)/[facility] Hemoglobin 11.2(L) 13.7 - 16.5 gm/dL [facility] Hematocrit 35.5(L) 40.5 - 48.5 % [facility] Mean Cell Volume 73.8(L) 82.9 - 93.1 fL [facility] Mean Cell Hemoglobin 23.3(L) 27.5 - 32.1 pg [facility] Mean Cell Hemoglobin Concentration 31.5(L) 32.0 - 35.7 gm/dL [facility] Platelet 298 145 - 357 x10(3)/mc L [facility] RDW Standard Deviation 45.8(H) 36.0 - 45.0 fL [facility] RDW coefficient of variation 17.2(H) 11.4 - 13.8 % [facility] Mean Platelet Volume 10.6 7.6 - 12.9 fL [facility] NRBC% auto 0.0 % [facility] NRBC Absolute 0.000 0.000 - 0.000 x10(3)/mc L [facility] Blood specimen (specimen) 01/16/2018 5:02 AM EDT 01/16/2018 5:21 AM EDT Narrative Resulting Agency Comment Spec In Lab Crista Aguilar MD HEMATOLOGY ORDERABL ES [facility] [place] [address] * (ABNORMAL) Basic Metabolic Panel (non-fasting) (01/16/2018 5:02 AM EDT) Glucose 78 65 - 199 mg/dL [facility] Comment:Diabetes: >=200 mg/d L plus symptoms Blood Urea Nitrogen 17 10 - 20 mg/dL [facility] Creatinine 0.83 0.80 - 1.50 mg/dL [facility] Sodium 146(H) 135 - 145 mmol/L [facility] Potassium 3.7 3.5 - 5.0 mmol/L [facility] Comment: Please note: ??Patients with WBC >100,000 may have falsely elevated Potassium levels. ??For accurate Potassium quantification in these patients send serum separator tube (gold top) for subsequent determinations. ??Contact the Clinical Chemistry Laboratory if there are any questions. Chloride 108(H) 98 - 107 mmol/L [facility] Carbon Dioxide 23 22 - 31 mmol/L [facility] Anion Gap 15 5 - 15 mmol/L [facility] Calcium 10.1 8.5 - 10.5 mg/dL [facility] Est Glomerular Filtration Rate 121 >=60 mL/min/1. 73 m?? [facility] Comment: The eGFR was calculated using the CKD-EPI equation. As with all creatinine based estimates of kidney function, eGFR values calculated with the CKD-EPI equation are not accurate in patients with acute kidney failure, extremes of body mass or the acutely ill. http://Unifysquare/Qoolep http://Unifysquare/Hit Systemsnkf eGFR 140 >=60 mL/min/1. 73 m?? [facility] Comment: The eGFR was calculated using the CKD-EPI equation. As with all creatinine based estimates of kidney function, eGFR values calculated with the CKD-EPI equation are not accurate in patients with acute kidney failure, extremes of body mass or the acutely ill. http://Unifysquare/Smarty Antskdep http://Unifysquare/SpeechCyclenkf Blood specimen (specimen) 01/16/2018 5:02 AM EDT 01/16/2018 5:21 AM EDT Narrative Resulting Agency Comment Spec In Lab Crista Aguilar MD CHEMISTRY ORDERABLE S [facility] [place] [address] * (ABNORMAL) Electrolytes panel (01/15/2018 6:12 AM EDT) Sodium 148(H) 135 - 145 mmol/L [facility] Potassium Not Perf 3.5 - 5.0 [facility] Comment: Unable to quantitate due [...] questions. Chloride 110(H) 98 - 107 mmol/L [facility] Carbon Dioxide 23 22 - 31 mmol/L [facility] Anion Gap 15 5 - 15 mmol/L [facility] Blood specimen (specimen) 01/15/2018 6:12 AM EDT 01/15/2018 6:26 AM EDT Narrative Resulting Agency Comment Spec In Lab Crista Aguilar MD CHEMISTRY ORDERABLE S Performing Organization Address [facility] Co de Phone Number [facility] [place] [address] * Electrolytes panel (01/13/2018 6:23 AM EDT) Sodium 142 135 - 145 mmol/L [facility] Potassium 3.6 3.5 - 5.0 mmol/L [facility] Comment: Please note: ??Patients with WBC >100,000 may have falsely elevated Potassium levels. ??For accurate Potassium quantification in these patients send serum separator tube (gold top) for subsequent determinations. ??Contact the Clinical Chemistry Laboratory if there are any questions. Chloride 106 98 - 107 mmol/L [facility] Carbon Dioxide 23 22 - 31 mmol/L [facility] Anion Gap 13 5 - 15 mmol/L [facility] Blood specimen (specimen) 01/13/2018 6:23 AM EDT 01/13/2018 6:32 AM EDT Narrative Resulting Agency Comment Spec In Lab Maldonado Salazar MD CHEMISTRY ORDERABLES Performing Organization Address [facility] Co de Phone Number [facility] [place] [address] * T3 Total (01/12/2018 7:53 AM EDT) T3 Total 97 75 - 170 ng/dL [facility] Blood specimen (specimen) Venous Draw / Unknown 01/12/2018 7:53 AM EDT 01/12/2018 9:37 AM EDT Narrative Resulting Agency Comment Spec In Lab Guerrero Tillman MD CHEMISTRY HERMES HANNON Performing Organization Address [facility]/ZIP Co de Phone Number [facility] [place] [address] * (ABNORMAL) Electrolytes panel (01/12/2018 7:53 AM EDT) [facility] Sodium 143 135 - 145 mmol/L [facility] Potassium 3.7 3.5 - 5.0 mmol/L [facility] Comment: Please note: ??Patients with WBC >100,000 may have falsely elevated Potassium levels. ??For accurate Potassium quantification in these patients send serum separator tube (gold top) for subsequent determinations. ??Contact the Clinical Chemistry Laboratory if there are any questions. Chloride 102 98 - 107 mmol/L [facility] Carbon Dioxide 23 22 - 31 mmol/L [facility] Anion Gap 18(H) 5 - 15 mmol/L [facility] Blood specimen (specimen) 01/12/2018 7:53 AM EDT 01/12/2018 8:10 AM EDT Narrative Resulting Agency Comment Spec In Lab Maldonado Salazar MD CHEMISTRY ORDERABLES Performing Organization Address [facility]/ZIP Co de Phone Number [facility] [place] [address] * (ABNORMAL) Electrolytes panel (01/11/2018 7:22 AM EDT) Sodium 141 135 - 145 mmol/L [facility] Potassium 3.7 3.5 - 5.0 mmol/L [facility] Comment: Please note: ??Patients with WBC >100,000 may have falsely elevated Potassium levels. ??For accurate Potassium quantification in these patients send serum separator tube (gold top) for subsequent determinations. ??Contact the Clinical Chemistry Laboratory if there are any questions. Chloride 101 98 - 107 mmol/L [facility] Comment:result rechecked-sb Carbon Dioxide 24 22 - 31 mmol/L [facility] Anion Gap 16(H) 5 - 15 mmol/L [facility] Blood specimen (specimen) 01/11/2018 7:22 AM EDT 01/11/2018 7:31 AM EDT Narrative Resulting Agency Comment Spec In Lab Maldonado Salazar MD CHEMISTRY ORDERABLES Performing Organization Address [facility]/ZIP Co de Phone Number [facility] [place] [address] * (ABNORMAL) T4, free (01/11/2018 7:22 AM EDT) Free T4 0.74(L) 0.93 - 1.70 ng/dL [facility] Blood specimen (specimen) 01/11/2018 7:22 AM EDT 01/11/2018 7:31 AM EDT Narrative Resulting Agency Comment Spec In Lab Crista Aguilar MD CHEMISTRY ORDERABLE S Performing Organization Address [facility] Co de Phone Number [facility] [place] [address] * (ABNORMAL) Electrolytes panel (01/10/2018 5:10 AM EDT) Sodium 148(H) 135 - 145 mmol/L [facility] Potassium 3.7 3.5 - 5.0 mmol/L [facility] Comment: Please note: ??Patients with WBC >100,000 may have falsely elevated Potassium levels. ??For accurate Potassium quantification in these patients send serum separator tube (gold top) for subsequent determinations. ??Contact the Clinical Chemistry Laboratory if there are any questions. Chloride 106 98 - 107 mmol/L [facility] Carbon Dioxide 24 22 - 31 mmol/L [facility] Anion Gap 18(H) 5 - 15 mmol/L [facility] Blood specimen (specimen) 01/10/2018 5:10 AM EDT 01/10/2018 5:15 AM EDT Narrative Resulting Agency Comment Spec In Lab Maldonado Salazar MD CHEMISTRY ORDERABLES Performing Organization Address [facility] Co de Phone Number [facility] [place] [address] * (ABNORMAL) Electrolytes panel (01/09/2018 5:06 AM EDT) Sodium 149(H) 135 - 145 mmol/L [facility] Potassium 3.8 3.5 - 5.0 mmol/L [facility] Comment: Please note: ??Patients with WBC >100,000 may have falsely elevated Potassium levels. ??For accurate Potassium quantification in these patients send serum separator tube (gold top) for subsequent determinations. ??Contact the Clinical Chemistry Laboratory if there are any questions. Chloride 110(H) 98 - 107 mmol/L [facility] Carbon Dioxide 25 22 - 31 mmol/L [facility] Anion Gap 14 5 - 15 mmol/L [facility] Blood specimen (specimen) 01/09/2018 5:06 AM EDT 01/09/2018 5:24 AM EDT Narrative Resulting Agency Comment Spec In Lab Maldonado Salazar MD CHEMISTRY ORDERABLES Performing Organization Address [facility] Co de Phone Number [facility] [place] [address] * (ABNORMAL) Electrolytes panel (01/08/2018 6:07 AM EDT) Sodium 149(H) 135 - 145 mmol/L [facility] Potassium 3.7 3.5 - 5.0 mmol/L [facility] Comment: Please note: ??Patients with WBC >100,000 may have falsely elevated Potassium levels. ??For accurate Potassium quantification in these patients send serum separator tube (gold top) for subsequent determinations. ??Contact the Clinical Chemistry Laboratory if there are any questions. Chloride 111(H) 98 - 107 mmol/L [facility] Carbon Dioxide 24 22 - 31 mmol/L [facility] Anion Gap 14 5 - 15 mmol/L [facility] Blood specimen (specimen) 01/08/2018 6:07 AM EDT 01/08/2018 6:14 AM EDT Narrative Resulting Agency Comment Spec In Lab Maldonado Salazar MD CHEMISTRY ORDERABLES Performing Organization Address [facility]/ZIP Co de Phone Number [facility] [place] [address] * (ABNORMAL) Electrolytes panel (01/07/2018 7:01 AM EDT) Sodium 148(H) 135 - 145 mmol/L [facility] Comment:Specimen ultracentri fuged due to gross lipemia Potassium Not Perf 3.5 - 5.0 [facility] Comment: Unable to quantitate due to sample hemolysis. ??Sample redraw suggested. Called Hafsa 01/07/18 08:35 ms Please note: ??Patients with WBC >100,000 may have falsely elevated Potassium levels. ??For accurate Potassium quantification in these patients send serum separator tube (gold top) for subsequent determinations. ??Contact the Clinical Chemistry Laboratory if there are any questions. Chloride 112(H) 98 - 107 mmol/L [facility] Comment:Specimen ultracentri fuged due to gross lipemia Carbon Dioxide 26 22 - 31 mmol/L [facility] Anion Gap 10 5 - 15 mmol/L [facility] Blood specimen (specimen) 01/07/2018 7:01 AM EDT 01/07/2018 7:16 AM EDT Narrative Resulting Agency Comment Spec In Lab Maldonado Salazar MD CHEMISTRY ORDERABLES Performing Organization Address [facility]/ZIP Co de Phone Number [facility] [place] [address] * (ABNORMAL) Electrolytes panel (01/06/2018 11:21 PM EDT) Sodium 148(H) 135 - 145 mmol/L [facility] Potassium Not Perf 3.5 - 5.0 [facility] Comment: Specimen hemolyzed. Called by: [facility], Read back by: Denisse Lebron, Date/Time:01/07/18 00:15. Please note: ??Patients with WBC >100,000 may have falsely elevated Potassium levels. ??For accurate Potassium quantification in these patients send serum separator tube (gold top) for subsequent determinations. ??Contact the Clinical Chemistry Laboratory if there are any questions. Chloride 109(H) 98 - 107 mmol/L [facility] Carbon Dioxide 24 22 - 31 mmol/L [facility] Anion Gap 15 5 - 15 mmol/L [facility] Blood specimen (specimen) 01/06/2018 11:21 PM EDT 01/06/2018 11:34 PM EDT Narrative Resulting Agency Comment Spec In Lab Maldonado Salazar MD CHEMISTRY ORDERABLES [facility] [place] [address] * (ABNORMAL) Electrolytes panel (01/06/2018 6:47 AM EDT) Sodium 149(H) 135 - 145 mmol/L [facility] Potassium Not Perf 3.5 - 5.0 [facility] Comment: Called by: [facility], Read back by: Sarika Michael, Date/Time:01/06/18 08:08. Please note: ??Patients with WBC >100,000 may have falsely elevated Potassium levels. ??For accurate Potassium quantification in these patients send serum separator tube (gold top) for subsequent determinations. ??Contact the Clinical Chemistry Laboratory if there are any questions. Chloride 110(H) 98 - 107 mmol/L [facility] Carbon Dioxide 23 22 - 31 mmol/L [facility] Anion Gap 16(H) 5 - 15 mmol/L [facility] Blood specimen (specimen) 01/06/2018 6:47 AM EDT 01/06/2018 7:10 AM EDT Narrative Resulting Agency Comment Spec In Lab Maldonado Salazar MD CHEMISTRY ORDERABLES Performing Organization Address [facility] Co de Phone Number [facility] [place] [address] * (ABNORMAL) Electrolytes panel (01/05/2018 5:48 PM EDT) Sodium 146(H) 135 - 145 mmol/L [facility] Potassium 4.0 3.5 - 5.0 mmol/L [facility] Comment: Please note: ??Patients with WBC >100,000 may have falsely elevated Potassium levels. ??For accurate Potassium quantification in these patients send serum separator tube (gold top) for subsequent determinations. ??Contact the Clinical Chemistry Laboratory if there are any questions. Chloride 107 98 - 107 mmol/L [facility] Carbon Dioxide 22 22 - 31 mmol/L [facility] Anion Gap 17(H) 5 - 15 mmol/L [facility] Blood specimen (specimen) 01/05/2018 5:48 PM EDT 01/05/2018 6:03 PM EDT Narrative Resulting Agency Comment Spec In Lab Maldonado Salazar MD CHEMISTRY ORDERABLES Performing Organization Address [facility] Co de Phone Number [facility] [place] [address] * (ABNORMAL) Electrolytes panel (01/05/2018 5:38 AM EDT) Sodium 151(H) 135 - 145 mmol/L [facility] Comment:result rechecked-jt Potassium 3.5 3.5 - 5.0 mmol/L [facility] Comment: Please note: ??Patients with WBC >100,000 may have falsely elevated Potassium levels. ??For accurate Potassium quantification in these patients send serum separator tube (gold top) for subsequent determinations. ??Contact the Clinical Chemistry Laboratory if there are any questions. Chloride 114(H) 98 - 107 mmol/L [facility] Comment:result rechecked-jt Carbon Dioxide 23 22 - 31 mmol/L [facility] Anion Gap 14 5 - 15 mmol/L [facility] Blood specimen (specimen) 01/05/2018 5:38 AM EDT 01/05/2018 5:56 AM EDT Narrative Resulting Agency Comment Spec In Lab Maldonado Salazar MD CHEMISTRY ORDERABLES Performing Organization Address [facility] Co de Phone Number [facility] [place] [address] * (ABNORMAL) Electrolytes panel (01/04/2018 7:08 AM EDT) Sodium 146(H) 135 - 145 mmol/L [facility] Comment:Specimen ultracentri fuged due to gross lipemia Potassium 3.2(L) 3.5 - 5.0 mmol/L [facility] Comment: Please note: ??Patients with WBC >100,000 may have falsely elevated Potassium levels. ??For accurate Potassium quantification in these patients send serum separator tube (gold top) for subsequent determinations. ??Contact the Clinical Chemistry Laboratory if there are any questions. Chloride 102 98 - 107 mmol/L [facility] Carbon Dioxide 25 22 - 31 mmol/L [facility] Anion Gap 19(H) 5 - 15 mmol/L [facility] Blood specimen (specimen) 01/04/2018 7:08 AM EDT 01/04/2018 7:16 AM EDT Narrative Resulting Agency Comment Spec In Lab Sherri Hanson MD CHEMISTRY ORDERABL ES Performing Organization Address [facility]/ZIP Co de Phone Number [facility] [place] [address] * Electrolytes panel (01/04/2018 3:14 AM EDT) Sodium 140 135 - 145 mmol/L [facility] Potassium 3.6 3.5 - 5.0 mmol/L [facility] Comment: Please note: ??Patients with WBC >100,000 may have falsely elevated Potassium levels. ??For accurate Potassium quantification in these patients send serum separator tube (gold top) for subsequent determinations. ??Contact the Clinical Chemistry Laboratory if there are any questions. Chloride 103 98 - 107 mmol/L [facility] Carbon Dioxide 23 22 - 31 mmol/L [facility] Anion Gap 14 5 - 15 mmol/L [facility] Blood specimen (specimen) 01/04/2018 3:14 AM EDT 01/04/2018 3:19 AM EDT Narrative Resulting Agency Comment Spec In Lab Sherri Hanson MD CHEMISTRY ORDERABL ES Performing Organization Address [facility] de Phone Number [facility] [place] [address] * (ABNORMAL) Electrolytes panel (01/03/2018 10:48 PM EDT) Sodium 142 135 - 145 mmol/L [facility] Potassium 3.4(L) 3.5 - 5.0 mmol/L [facility] Comment: Please note: ??Patients with WBC >100,000 may have falsely elevated Potassium levels. ??For accurate Potassium quantification in these patients send serum separator tube (gold top) for subsequent determinations. ??Contact the Clinical Chemistry Laboratory if there are any questions. Chloride 102 98 - 107 mmol/L [facility] Carbon Dioxide 25 22 - 31 mmol/L [facility] Anion Gap 15 5 - 15 mmol/L [facility] Blood specimen (specimen) 01/03/2018 10:48 PM EDT 01/03/2018 11:09 PM EDT Narrative Resulting Agency Comment Spec In Lab Sherri Hanson MD CHEMISTRY ORDERABL ES Performing Organization Address City/[facility] Co de Phone Number [facility] [place] [address] * (ABNORMAL) Electrolytes panel (01/03/2018 1:32 PM EDT) Sodium 139 135 - 145 mmol/L [facility] Potassium 3.8 3.5 - 5.0 mmol/L [facility] Comment: Please note: ??Patients with WBC >100,000 may have falsely elevated Potassium levels. ??For accurate Potassium quantification in these patients send serum separator tube (gold top) for subsequent determinations. ??Contact the Clinical Chemistry Laboratory if there are any questions. Chloride 97(L) 98 - 107 mmol/L [facility] Carbon Dioxide 25 22 - 31 mmol/L [facility] Anion Gap 17(H) 5 - 15 mmol/L [facility] Blood specimen (specimen) 01/03/2018 1:32 PM EDT 01/03/2018 1:37 PM EDT Narrative Resulting Agency Comment Spec In Lab Maldonado Salazar MD CHEMISTRY ORDERABLES Performing Organization Address [facility] Co de Phone Number [facility] [place] [address] * (ABNORMAL) Electrolytes panel (01/03/2018 8:38 AM EDT) Sodium 145 135 - 145 mmol/L [facility] Potassium 3.7 3.5 - 5.0 mmol/L [facility] Comment: Please note: ??Patients with WBC >100,000 may have falsely elevated Potassium levels. ??For accurate Potassium quantification in these patients send serum separator tube (gold top) for subsequent determinations. ??Contact the Clinical Chemistry Laboratory if there are any questions. Chloride 105 98 - 107 mmol/L [facility] Carbon Dioxide 23 22 - 31 mmol/L [facility] Anion Gap 17(H) 5 - 15 mmol/L [facility] Blood specimen (specimen) 01/03/2018 8:38 AM EDT 01/03/2018 8:56 AM EDT Narrative Resulting Agency Comment Spec In Lab Fran Gilliam MD CHEMISTRY ORDERABL ES Performing Organization Address [facility] Co de Phone Number [facility] [place] [address] * (ABNORMAL) Electrolytes panel (01/02/2018 8:55 AM EDT) Sodium 155(H) 135 - 145 mmol/L [facility] Potassium 3.8 3.5 - 5.0 mmol/L [facility] Comment: Please note: ??Patients with WBC >100,000 may have falsely elevated Potassium levels. ??For accurate Potassium quantification in these patients send serum separator tube (gold top) for subsequent determinations. ??Contact the Clinical Chemistry Laboratory if there are any questions. Chloride 113(H) 98 - 107 mmol/L [facility] Carbon Dioxide 27 22 - 31 mmol/L [facility] Anion Gap 15 5 - 15 mmol/L [facility] Blood specimen (specimen) 01/02/2018 8:55 AM EDT 01/02/2018 9:04 AM EDT Narrative Resulting Agency Comment Spec In Lab Fran Gilliam MD CHEMISTRY ORDERABL ES Performing Organization Address [facility] Co de Phone Number [facility] [place] [address] * (ABNORMAL) Electrolytes panel (12/30/2017 8:24 AM EDT) Sodium 147(H) 135 - 145 mmol/L [facility] Potassium 3.9 3.5 - 5.0 mmol/L [facility] Comment: Please note: ??Patients with WBC >100,000 may have falsely elevated Potassium levels. ??For accurate Potassium quantification in these patients send serum separator tube (gold top) for subsequent determinations. ??Contact the Clinical Chemistry Laboratory if there are any questions. Chloride 108(H) 98 - 107 mmol/L [facility] Carbon Dioxide 25 22 - 31 mmol/L [facility] Anion Gap 14 5 - 15 mmol/L [facility] Blood specimen (specimen) 12/30/2017 8:24 AM EDT 12/30/2017 8:37 AM EDT Narrative Resulting Agency Comment Spec In Lab Fran Gilliam MD CHEMISTRY ORDERABL ES Performing Organization Address [facility] Co de Phone Number [facility] [place] [address] * (ABNORMAL) Electrolytes panel (12/29/2017 3:57 AM EDT) Sodium 142 135 - 145 mmol/L [facility] Potassium 4.1 3.5 - 5.0 mmol/L [facility] Comment: Please note: ??Patients with WBC >100,000 may have falsely elevated Potassium levels. ??For accurate Potassium quantification in these patients send serum separator tube (gold top) for subsequent determinations. ??Contact the Clinical Chemistry Laboratory if there are any questions. Chloride 103 98 - 107 mmol/L [facility] Carbon Dioxide 22 22 - 31 mmol/L [facility] Anion Gap 17(H) 5 - 15 mmol/L [facility] Blood specimen (specimen) 12/29/2017 3:57 AM EDT 12/29/2017 4:03 AM EDT Narrative Resulting Agency Comment Spec In Lab Fran Gilliam MD CHEMISTRY ORDERABL ES Performing Organization Address [facility]/ZIP Co de Phone Number [facility] [place] [address] * (ABNORMAL) Electrolytes panel (12/28/2017 8:27 PM EDT) Sodium 145 135 - 145 mmol/L [facility] Comment:Specimen ultracentri fuged due to gross lipemia Potassium 4.2 3.5 - 5.0 mmol/L [facility] Comment: Please note: ??Patients with WBC >100,000 may have falsely elevated Potassium levels. ??For accurate Potassium quantification in these patients send serum separator tube (gold top) for subsequent determinations. ??Contact the Clinical Chemistry Laboratory if there are any questions. Chloride 104 98 - 107 mmol/L [facility] Carbon Dioxide 24 22 - 31 mmol/L [facility] Anion Gap 17(H) 5 - 15 mmol/L [facility] Blood specimen (specimen) 12/28/2017 8:27 PM EDT 12/28/2017 8:32 PM EDT Narrative Resulting Agency Comment Spec In Lab Fran Gilliam MD CHEMISTRY ORDERABL ES Performing Organization Address [facility] Co de Phone Number [facility] [place] [address] * (ABNORMAL) Electrolytes panel (12/28/2017 5:08 AM EDT) Sodium 148(H) 135 - 145 mmol/L [facility] Potassium 3.9 3.5 - 5.0 mmol/L [facility] Comment: Please note: ??Patients with WBC >100,000 may have falsely elevated Potassium levels. ??For accurate Potassium quantification in these patients send serum separator tube (gold top) for subsequent determinations. ??Contact the Clinical Chemistry Laboratory if there are any questions. Chloride 105 98 - 107 mmol/L [facility] Carbon Dioxide 25 22 - 31 mmol/L [facility] Anion Gap 18(H) 5 - 15 mmol/L [facility] Blood specimen (specimen) 12/28/2017 5:08 AM EDT 12/28/2017 5:26 AM EDT Narrative Resulting Agency Comment Spec In Lab Fran Gilliam MD CHEMISTRY ORDERABL ES Performing Organization Address [facility]/ZIP Co de Phone Number [facility] [place] [address] * (ABNORMAL) Basic Metabolic Panel (non-fasting) (12/28/2017 12:04 AM EDT) Glucose 114 65 - 199 mg/dL [facility] Comment:Diabetes: >=200 mg/d L plus symptoms Blood Urea Nitrogen 22(H) 10 - 20 mg/dL [facility] Creatinine 0.90 0.80 - 1.50 mg/dL [facility] Sodium 146(H) 135 - 145 mmol/L [facility] Comment:result rechecked-jt Potassium 3.6 3.5 - 5.0 mmol/L [facility] Comment: Please note: ??Patients with WBC >100,000 may have falsely elevated Potassium levels. ??For accurate Potassium quantification in these patients send serum separator tube (gold top) for subsequent determinations. ??Contact the Clinical Chemistry Laboratory if there are any questions. Chloride 104 98 - 107 mmol/L [facility] Comment:result rechecked-jt Carbon Dioxide 25 22 - 31 mmol/L [facility] Anion Gap 17(H) 5 - 15 mmol/L [facility] Calcium 9.4 8.5 - 10.5 mg/dL [facility] Est Glomerular Filtration Rate 117 >=60 mL/min/1. 73 m?? [facility] Comment: The eGFR was calculated using the CKD-EPI equation. As with all creatinine based estimates of kidney function, eGFR values calculated with the CKD-EPI equation are not accurate in patients with acute kidney failure, extremes of body mass or the acutely ill. http://[employer] http://[employer]/[facility] [place] CITYnk[place] eGFR 135 >=60 mL/min/1. 73 m?? [facility] Comment: The eGFR was calculated using the CKD-EPI equation. As with all creatinine based estimates of kidney function, eGFR values calculated with the CKD-EPI equation are not accurate in patients with acute kidney failure, extremes of body mass or the acutely ill. http://[employer] http://[employer]/[facility] [place] Blood specimen (specimen) 12/28/2017 12:04 AM EDT 12/28/2017 12:10 AM EDT Narrative Resulting Agency Comment Spec In Lab Fran Gilliam MD CHEMISTRY ORDERABL ES Performing Organization Address [facility] Co de Phone Number [facility] [place] [address] * (ABNORMAL) Sodium (12/26/2017 10:23 PM EDT) Sodium 147(H) 135 - 145 mmol/L [facility] Blood specimen (specimen) 12/26/2017 10:23 PM EDT 12/26/2017 10:29 PM EDT Narrative Resulting Agency Comment Spec In Lab José Miguel Maher MD CHEMISTRY ORDERABLES Performing Organization Address [facility] Co de Phone Number [facility] [place] [address] * (ABNORMAL) Sodium (12/26/2017 10:03 AM EDT) Sodium 155(H) 135 - 145 mmol/L [facility] Blood specimen (specimen) 12/26/2017 10:03 AM EDT 12/26/2017 10:11 AM EDT Narrative Resulting Agency Comment Spec In Lab José Miguel Maher MD CHEMISTRY ORDERABLES Performing Organization Address [facility]/ZIP Co de Phone Number [facility] [place] [address] * (ABNORMAL) Sodium (12/26/2017 5:11 AM EDT) Sodium 154(H) 135 - 145 mmol/L [facility] Blood specimen (specimen) 12/26/2017 5:11 AM EDT 12/26/2017 5:19 AM EDT Narrative Resulting Agency Comment Spec In Lab José Miguel Maher MD CHEMISTRY ORDERABLES Performing Organization Address [facility] Co de Phone Number [facility] [place] [address] * XR Knee 3 Views Right (12/25/2017 [...] 5:50 AM EDT) Neutrophil % 43.3 % [facility] Neutrophil Absolute 2.14 1.70 - 6.10 x10(3)/[facility] LABORATORY Lymph % 38.7 % [facility] Lymphocytes Abs 1.9 0.9 - 3.2 x10(3)/[facility] LABORATORY Monocyte % 9.3 % [facility] Monocyte Abs 0.5 0.3 - 0.9 x10(3)/[facility] LABORATORY Eos % 7.7 % [facility] Eosinophils Abs 0.4 0.0 - 0.4 x10(3)/[facility] LABORATORY Basophil % 0.6 % [facility] Baso Absolute 0.0 0.0 - 0.1 x10(3)/[facility] LABORATORY Immature Gran % 0.40 % [facility] Comment: Immature granulocytes(IG's)percentage and absolute count will include metamyelocytes, myelocytes, and promyelocytes. Blood smears from CBCs yielding IG's will be scanned manually for concordance. If this scan disagrees with the automated IG or if promyelocytes are noted, a manual differential will be performed. Immature Gran Absolute 0.02 0.00 - 0.04 x10(3)/[facility] LABORATORY Blood specimen (specimen) 12/25/2017 5:50 AM EDT 12/25/2017 6:08 AM EDT Narrative Resulting Agency Comment Spec In Lab José Miguel Maher MD HEMATOLOGY ORDERABLE S [facility] [place] [address] * (ABNORMAL) Hemogram (12/25/2017 5:50 AM EDT) White Blood Cell 4.9 4.0 - 9.5 x10(3)/[facility] LABORATORY Red Blood Cell 4.84 4.58 - 5.54 x10(6)/ L [facility] Hemoglobin 11.9(L) 13.7 - 16.5 gm/dL [facility] Hematocrit 36.4(L) 40.5 - 48.5 % [facility] Mean Cell Volume 75.2(L) 82.9 - 93.1 fL [facility] Mean Cell Hemoglobin 24.6(L) 27.5 - 32.1 pg [facility] Mean Cell Hemoglobin Concentration 32.7 32.0 - 35.7 gm/dL [facility] Platelet 313 145 - 357 x10(3)/[facility] LABORATORY RDW Standard Deviation 45.6(H) 36.0 - 45.0 fL [facility] RDW coefficient of variation 17.0(H) 11.4 - 13.8 % [facility] Mean Platelet Volume 9.6 7.6 - 12.9 fL [facility] NRBC% auto 0.0 % [facility] NRBC Absolute 0.000 0.000 - 0.000 x10(3)/mc L [facility] Blood specimen (specimen) 12/25/2017 5:50 AM EDT 12/25/2017 6:08 AM EDT Narrative Resulting Agency Comment Spec In Lab José Miguel Maher MD HEMATOLOGY ORDERABLE S [facility] [place] [address] * (ABNORMAL) Basic Metabolic Panel (non-fasting) (12/25/2017 5:50 AM EDT) Glucose 107 65 - 199 mg/dL [facility] Comment:Diabetes: >=200 mg/d L plus symptoms Blood Urea Nitrogen 14 10 - 20 mg/dL [facility] Creatinine 0.63(L) 0.80 - 1.50 mg/dL [facility] Sodium 149(H) 135 - 145 mmol/L [facility] Potassium 3.6 3.5 - 5.0 mmol/L [facility] Comment: Please note: ??Patients with WBC >100,000 may have falsely elevated Potassium levels. ??For accurate Potassium quantification in these patients send serum separator tube (gold top) for subsequent determinations. ??Contact the Clinical Chemistry Laboratory if there are any questions. Chloride 108(H) 98 - 107 mmol/L [facility] Carbon Dioxide 25 22 - 31 mmol/L [facility] Anion Gap 16(H) 5 - 15 mmol/L [facility] Calcium 9.9 8.5 - 10.5 mg/dL [facility] Est Glomerular Filtration Rate 135 >=60 mL/min/1. 73 m?? [facility] Comment: The eGFR was calculated using the CKD-EPI equation. As with all creatinine based estimates of kidney function, eGFR values calculated with the CKD-EPI equation are not accurate in patients with acute kidney failure, extremes of body mass or the acutely ill. http://[employer] http://Unif[employer]/[facility] [place] eGFR 157 >=60 mL/min/1. 73 m?? [facility] Comment: The eGFR was calculated using the CKD-EPI equation. As with all creatinine based estimates of kidney function, eGFR values calculated with the CKD-EPI equation are not accurate in patients with acute kidney failure, extremes of body mass or the acutely ill. http://[employer] http://[employer]/[facility] [place] Blood specimen (specimen) 12/25/2017 5:50 AM EDT 12/25/2017 6:08 AM EDT Narrative Resulting Agency Comment Spec In Lab José Miguel Maher MD CHEMISTRY ORDERABLES Performing Organization Address City/[facility] Co de Phone Number [facility] [place] [address] * (ABNORMAL) Sodium (12/24/2017 12:19 AM EDT) Sodium 147(H) 135 - 145 mmol/L [facility] Blood specimen (specimen) 12/24/2017 12:19 AM EDT 12/24/2017 12:29 AM EDT Narrative Resulting Agency Comment Spec In Lab José Miguel Maher MD CHEMISTRY ORDERABLES Performing Organization Address [facility] Co de Phone Number [facility] [place] [address] * (ABNORMAL) Differential, Automated (12/23/2017 6:41 AM EDT) Neutrophil % 40.1 % [facility] Neutrophil Absolute 1.93 1.70 - 6.10 x10(3)/mc L [facility] Lymph % 39.4 % [facility] Lymphocytes Abs 1.9 0.9 - 3.2 x10(3)/ L [facility] Monocyte % 11.6 % [facility] Monocyte Abs 0.6 0.3 - 0.9 x10(3)/[facility] LABORATORY Eos % 7.1 % [facility] Eosinophils Abs 0.3 0.0 - 0.4 x10(3)/[facility] LABORATORY Basophil % 0.8 % [facility] Baso Absolute 0.0 0.0 - 0.1 x10(3)/[facility] LABORATORY Immature Gran % 1.00 % [facility] Comment: Immature granulocytes(IG's)percentage and absolute [...] José Miguel Maher MD HEMATOLOGY ORDERABLE S [facility] [place] [address] * (ABNORMAL) Hemogram (12/23/2017 6:41 AM EDT) White Blood Cell 4.8 4.0 - 9.5 x10(3)/[facility] LABORATORY Red Blood Cell 4.62 4.58 - 5.54 x10(6)/[facility] LABORATORY Hemoglobin 10.6(L) 13.7 - 16.5 gm/dL [facility] Hematocrit 34.7(L) 40.5 - 48.5 % [facility] Mean Cell Volume 75.1(L) 82.9 - 93.1 fL [facility] Mean Cell Hemoglobin 22.9(L) 27.5 - 32.1 pg [facility] Mean Cell Hemoglobin Concentration 30.5(L) 32.0 - 35.7 gm/dL [facility] Platelet 286 145 - 357 x10(3)/mc L [facility] RDW Standard Deviation 45.8(H) 36.0 - 45.0 fL [facility] RDW coefficient of variation 17.0(H) 11.4 - 13.8 % [facility] Mean Platelet Volume 9.9 7.6 - 12.9 fL [facility] NRBC% auto 0.0 % [facility] NRBC Absolute 0.000 0.000 - 0.000 x10(3)/mc L [facility] Blood specimen (specimen) 12/23/2017 6:41 AM EDT 12/23/2017 6:48 AM EDT Narrative Resulting Agency Comment Spec In Lab José Miguel Maher MD HEMATOLOGY ORDERABLE S [facility] [place] [address] * (ABNORMAL) Basic Metabolic Panel (non-fasting) (12/23/2017 6:41 AM EDT) Glucose 87 65 - 199 mg/dL [facility] Comment:Diabetes: >=200 mg/d L plus symptoms Blood Urea Nitrogen 14 10 - 20 mg/dL [facility] Creatinine 0.61(L) 0.80 - 1.50 mg/dL [facility] Sodium 149(H) 135 - 145 mmol/L [facility] Potassium 4.0 3.5 - 5.0 mmol/L [facility] Comment: Please note: ??Patients with WBC >100,000 may have falsely elevated Potassium levels. ??For accurate Potassium quantification in these patients send serum separator tube (gold top) for subsequent determinations. ??Contact the Clinical Chemistry Laboratory if there are any questions. Chloride 111(H) 98 - 107 mmol/L [facility] Carbon Dioxide 24 22 - 31 mmol/L [facility] Anion Gap 14 5 - 15 mmol/L [facility] Calcium 9.6 8.5 - 10.5 mg/dL [facility] Est Glomerular Filtration Rate 137 >=60 mL/min/1. 73 m?? [facility] Comment: The eGFR was calculated using the CKD-EPI equation. As with all creatinine based estimates of kidney function, eGFR values calculated with the CKD-EPI equation are not accurate in patients with acute kidney failure, extremes of body mass or the acutely ill. http://[employer]kdep http://[employer]ech[employer]enkf eGFR 159 >=60 mL/min/1. 73 m?? [facility] Comment: The eGFR was calculated using the CKD-EPI equation. As with all creatinine based estimates of kidney function, eGFR values calculated with the CKD-EPI equation are not accurate in patients with acute kidney failure, extremes of body mass or the acutely ill. http://Un[employer]dep http://Un[employer]/[facility] [place] Blood specimen (specimen) 12/23/2017 6:41 AM EDT 12/23/2017 6:48 AM EDT Narrative Resulting Agency Comment Spec In Lab José Miguel Maher MD CHEMISTRY ORDERABLES Performing Organization Address City/State/[facility] Co de Phone Number [facility] [place] [address] * Sodium (12/21/2017 8:00 PM EDT) Sodium 143 135 - 145 mmol/L [facility] Blood specimen (specimen) 12/21/2017 8:00 PM EDT 12/21/2017 8:06 PM EDT Narrative Resulting Agency Comment Spec In Lab José Miguel Maher MD CHEMISTRY ORDERABLES Performing Organization Address City/[facility]/ZIP Co de Phone Number [facility] [place] [address] * Scan, Peripheral Blood (12/21/2017 10:18 AM EDT) [facility] Plat estimate Normal [facility] RBC Morphology Abnormal [facility] Microcyte gtr than 10 /HPF [facility] Tear Cell 1-5 /HPF [facility] Blood specimen (specimen) 12/21/2017 10:18 AM EDT 12/21/2017 10:38 AM EDT Narrative Resulting Agency Comment Spec In Lab José Miguel Maher MD HEMATOLOGY ORDERABLE S Performing Organization Address [facility]/ZIP Co de Phone Number [facility] [place] [address] * (ABNORMAL) Differential, Automated (12/21/2017 10:18 AM EDT) [facility] Neutrophil % 65.7 % [facility] Neutrophil Absolute 5.47 1.70 - 6.10 x10(3)/mc L [facility] Lymph % 19.0 % [facility] Lymphocytes Abs 1.6 0.9 - 3.2 x10(3)/mc L [facility] Monocyte % 9.0 % [facility] Monocyte Abs 0.8 0.3 - 0.9 x10(3)/mc L [facility] Eos % 4.6 % [facility] Eosinophils Abs 0.4 0.0 - 0.4 x10(3)/mc L [facility] Basophil % 0.7 % [facility] Baso Absolute 0.1 0.0 - 0.1 x10(3)/mc L [facility] Immature Gran % 1.00 % [facility] Comment: Immature granulocytes(IG's)percentage and absolute count will include metamyelocytes, myelocytes, and promyelocytes. Blood smears from CBCs yielding IG's will be scanned manually for concordance. If this scan disagrees with the automated IG or if promyelocytes are noted, a manual differential will be performed. Immature Gran Absolute 0.08(H) 0.00 - 0.04 x10(3)/ L [facility] Blood specimen (specimen) 12/21/2017 10:18 AM EDT 12/21/2017 10:38 AM EDT Narrative Resulting Agency Comment Spec In Lab José Miguel Maher MD HEMATOLOGY ORDERABLE S [facility] [place] [address] * (ABNORMAL) Hemogram (12/21/2017 10:18 AM EDT) White Blood Cell 8.3 4.0 - 9.5 x10(3)/[facility] Red Blood Cell 5.42 4.58 - 5.54 x10(6)/[facility] Hemoglobin 12.5(L) 13.7 - 16.5 gm/dL [facility] Hematocrit 40.5 40.5 - 48.5 % [facility] Mean Cell Volume 74.7(L) 82.9 - 93.1 fL [facility] Mean Cell Hemoglobin 23.1(L) 27.5 - 32.1 pg [facility] Mean Cell Hemoglobin Concentration 30.9(L) 32.0 - 35.7 gm/dL [facility] Platelet 333 145 - 357 x10(3)/[facility] RDW Standard Deviation 45.7(H) 36.0 - 45.0 fL [facility] RDW coefficient of variation 17.3(H) 11.4 - 13.8 % [facility] Mean Platelet Volume 9.9 7.6 - 12.9 fL [facility] NRBC% auto 0.0 % [facility] NRBC Absolute 0.000 0.000 - 0.000 x10(3)/mc L [facility] Blood specimen (specimen) 12/21/2017 10:18 AM EDT 12/21/2017 10:38 AM EDT Narrative Resulting Agency Comment Spec In Lab José Miguel Maher MD HEMATOLOGY ORDERABLE S [facility] [place] [address] * (ABNORMAL) Basic Metabolic Panel (non-fasting) (12/21/2017 10:18 AM EDT) Glucose 134 65 - 199 mg/dL [facility] Comment:Diabetes: >=200 mg/d L plus symptoms Blood Urea Nitrogen 15 10 - 20 mg/dL [facility] Creatinine 0.82 0.80 - 1.50 mg/dL [facility] Sodium 147(H) 135 - 145 mmol/L [facility] Potassium 4.2 3.5 - 5.0 mmol/L [facility] Comment: Please note: ??Patients with WBC >100,000 may have falsely elevated Potassium levels. ??For accurate Potassium quantification in these patients send serum separator tube (gold top) for subsequent determinations. ??Contact the Clinical Chemistry Laboratory if there are any questions. Chloride 109(H) 98 - 107 mmol/L [facility] Carbon Dioxide 22 22 - 31 mmol/L [facility] Anion Gap 16(H) 5 - 15 mmol/L [facility] Calcium 10.2 8.5 - 10.5 mg/dL [facility] Est Glomerular Filtration Rate 121 >=60 mL/min/1. 73 m?? [facility] Comment: The eGFR was calculated using the CKD-EPI equation. As with all creatinine based estimates of kidney function, eGFR values calculated with the CKD-EPI equation are not accurate in patients with acute kidney failure, extremes of body mass or the acutely ill. http://[employer]/DHnkdep http://Unif[employer]/DHMCnkf eGFR 140 >=60 mL/min/1. 73 m?? [facility] Comment: The eGFR was calculated using the CKD-EPI equation. As with all creatinine based estimates of kidney function, eGFR values calculated with the CKD-EPI equation are not accurate in patients with acute kidney failure, extremes of body mass or the acutely ill. http://[employer]/DHnkdep http://[employer]/DHMCnkf Blood specimen (specimen) 12/21/2017 10:18 AM EDT 12/21/2017 10:38 AM EDT Narrative Resulting Agency Comment Spec In Lab José Miguel Maher MD CHEMISTRY ORDERABLES Performing Organization Address [facility] Co de Phone Number [facility] [place] [address] * (ABNORMAL) Electrolytes panel (12/16/2017 9:01 AM EDT) Pathologist [facility] Sodium 143 135 - 145 mmol/L [facility] Potassium 3.8 3.5 - 5.0 mmol/L [facility] Comment: Please note: ??Patients with WBC >100,000 may have falsely elevated Potassium levels. ??For accurate Potassium quantification in these patients send serum separator tube (gold top) for subsequent determinations. ??Contact the Clinical Chemistry Laboratory if there are any questions. Chloride 103 98 - 107 mmol/L [facility] Carbon Dioxide 23 22 - 31 mmol/L [facility] Anion Gap 17(H) 5 - 15 mmol/L [facility] Blood specimen (specimen) 12/16/2017 9:01 AM EDT 12/16/2017 9:12 AM EDT Narrative Resulting Agency Comment Spec In Lab Fran Gilliam MD CHEMISTRY ORDERABL ES Performing Organization Address [facility] Co de Phone Number [facility] [place] [address] * (ABNORMAL) Basic Metabolic Panel (non-fasting) (12/14/2017 6:09 PM EDT) Glucose 121 65 - 199 mg/dL [facility] Comment:Diabetes: >=200 mg/d L plus symptoms Blood Urea Nitrogen 11 10 - 20 mg/dL [facility] Creatinine 0.86 0.80 - 1.50 mg/dL [facility] Sodium 145 135 - 145 mmol/L [facility] Potassium 4.1 3.5 - 5.0 mmol/L [facility] Comment: Please note: ??Patients with WBC >100,000 may have falsely elevated Potassium levels. ??For accurate Potassium quantification in these patients send serum separator tube (gold top) for subsequent determinations. ??Contact the Clinical Chemistry Laboratory if there are any questions. Chloride 105 98 - 107 mmol/L [facility] Carbon Dioxide 21(L) 22 - 31 mmol/L [facility] Anion Gap 19(H) 5 - 15 mmol/L [facility] Calcium 8.9 8.5 - 10.5 mg/dL [facility] Est Glomerular Filtration Rate >60 >=60 [facility] Comment: The reported eGFR should be multiplied by 1.2 for patients. The MDRD is not an appropriate measure of renal function for patients with body mass extremes or in patients with acute kidney failure. http://Unifys[employer]/DHnkdep http://Unif[employer]/DHMCnkf Blood specimen (specimen) 12/14/2017 6:09 PM EDT 12/14/2017 6:24 PM EDT Narrative Resulting Agency Comment Spec In Lab Fran Gilliam MD CHEMISTRY ORDERABL ES [facility] [place] [address] * Urine Hold (12/10/2017 11:09 AM EDT) Hold, Urine Sample in lab. [facility] Urine specimen (specimen) Urine / Unknown 12/10/2017 11:09 AM EDT 12/10/2017 11:58 AM EDT Kemi Camp APRN URINE ORDERABLES Performing Organization Address City/[facility]/ZIP Co de Phone Number [facility] [place] [address] * Urinalysis with reflex Culture (12/10/2017 11:07 AM EDT) Glucose, Urine Dipstick Negative Negative mg/dL [facility] Protein, Urine Dipstick Negative Negative mg/dL [facility] Bilirubin, Urine Dipstick Negative Negative mg/dL [facility] Comment: Clinical correlation required for positive Urine Bilirubin results as false positive may occur with some drugs and drug related products. If a false positive is suspected a serum total bilirubin should be considered if clinically indicated. Urobilinogen, Urine Dipstick Normal Normal mg/dL [facility] pH, Urn (dipstick) 6.0 5.0 - 8.0 [facility] Blood, Urine Dipstick Negative Negative mg/dL [facility] Ketone, Urine Dipstick Negative Negative mg/dL [facility] Nitrite, Urine Dipstick Negative Negative [facility] Leukocytes, Urine Dipstick Negative Negative [facility] Appearance, Urine Dipstick Clear Clear [facility] Specific [place] Urine Automated 1.015 1.002 - 1.030 [facility] Color, Urine Dipstick Straw Yellow [facility] Reflex to Culture No [facility] Urine specimen obtained by clean catch procedure (specimen) 12/10/2017 11:07 AM EDT 12/10/2017 11:58 AM EDT Narrative Resulting Agency Comment Spec In Lab Kemi Camp APRN URINE ORDERABLES Performing Organization Address City/[facility]/ZIP Co de Phone Number [facility] [place] [address] * (ABNORMAL) BMP w/fasting Glucose (12/09/2017 4:07 AM EDT) Glucose Fasting 90 65 - 99 mg/dL [facility] Comment: ?Fasting* Glucose Interpretive Criteria [...] of Diabetes Mellitus, Position Statement from the [place] [employer]. ??Diabetes Care, Volume 33, Supplement 1, Jul 2009 Blood Urea Nitrogen 20 10 - 20 mg/dL [facility] Creatinine 0.74(L) 0.80 - 1.50 mg/dL [facility] Sodium 139 135 - 145 mmol/L [facility] Potassium 3.8 3.5 - 5.0 mmol/L [facility] Comment: Please note: ??Patients with WBC >100,000 may have falsely elevated Potassium levels. ??For accurate Potassium quantification in these patients send serum separator tube (gold top) for subsequent determinations. ??Contact the Clinical Chemistry Laboratory if there are any questions. Chloride 102 98 - 107 mmol/L [facility] Carbon Dioxide 22 22 - 31 mmol/L [facility] Anion Gap 15 5 - 15 mmol/L [facility] Calcium 9.0 8.5 - 10.5 mg/dL [facility] Est Glomerular Filtration Rate >60 >=60 [facility] Comment: The reported eGFR should be multiplied by 1.2 for patients. The MDRD is not an appropriate measure of renal function for patients with body mass extremes or in patients with acute kidney failure. http://[employer]/DHnkdep http://Unif[employer]/DHMCnkf Blood specimen (specimen) 12/09/2017 4:07 AM EDT 12/09/2017 4:24 AM EDT Narrative Resulting Agency Comment Spec In Lab Danay Rajan MD CHEMISTRY ORDERAB LES [facility] [place] [address] * (ABNORMAL) Differential, Automated (12/06/2017 7:48 AM EDT) Neutrophil % 37.8 % [facility] Neutrophil Absolute 1.75 1.70 - 6.10 x10(3)/ L [facility] Lymph % 40.4 % [facility] Lymphocytes Abs 1.9 0.9 - 3.2 x10(3)/ L [facility] Monocyte % 14.3 % [facility] Monocyte Abs 0.7 0.3 - 0.9 x10(3)/ L [facility] Eos % 5.8 % [facility] Eosinophils Abs 0.3 0.0 - 0.4 x10(3)/[facility] Basophil % 0.6 % [facility] Baso Absolute 0.0 0.0 - 0.1 x10(3)/ L [facility] Immature Gran % 1.10 % [facility] Comment: Immature granulocytes(IG's)percentage and absolute count will include metamyelocytes, myelocytes, and promyelocytes. Blood smears from CBCs yielding IG's will be scanned manually for concordance. If this scan disagrees with the automated IG or if promyelocytes are noted, a manual differential will be performed. Immature Gran Absolute 0.05(H) 0.00 - 0.04 x10(3)/mc L [facility] Blood specimen (specimen) 12/06/2017 7:48 AM EDT 12/06/2017 7:53 AM EDT Narrative Resulting Agency Comment Spec In Lab Constantino Courtney MD HEMATOLOGY ORDERABLE S [facility] [place] [address] * (ABNORMAL) Hemogram (12/06/2017 7:48 AM EDT) White Blood Cell 4.6 4.0 - 9.5 x10(3)/mc L [facility] Red Blood Cell 5.03 4.58 - 5.54 x10(6)/mc L [facility] Hemoglobin 11.7(L) 13.7 - 16.5 gm/dL [facility] Hematocrit 38.1(L) 40.5 - 48.5 % [facility] Mean Cell Volume 75.7(L) 82.9 - 93.1 fL [facility] Mean Cell Hemoglobin 23.3(L) 27.5 - 32.1 pg [facility] Mean Cell Hemoglobin Concentration 30.7(L) 32.0 - 35.7 gm/dL [facility] Platelet 291 145 - 357 x10(3)/[facility] RDW Standard Deviation 45.1(H) 36.0 - 45.0 [facility] RDW coefficient of variation 16.8(H) 11.4 - 13.8 % [facility] Mean Platelet Volume 9.5 7.6 - 12.9 [facility] NRBC% auto 0.0 % [facility] NRBC Absolute 0.000 0.000 - 0.000 x10(3)/[facility] Blood specimen (specimen) 12/06/2017 7:48 AM EDT 12/06/2017 7:53 AM EDT Narrative Resulting Agency Comment Spec In Lab Constantino Courtney MD HEMATOLOGY ORDERABLE S [facility] [place] [address] * (ABNORMAL) Basic Metabolic Panel (non-fasting) (12/06/2017 7:48 AM EDT) Glucose 94 65 - 199 mg/dL [facility] Comment:Diabetes: >=200 mg/d L plus symptoms Blood Urea Nitrogen 23(H) 10 - 20 mg/dL [facility] Creatinine 0.64(L) 0.80 - 1.50 mg/dL [facility] Sodium 143 135 - 145 mmol/L [facility] Potassium 3.7 3.5 - 5.0 mmol/L [facility] Comment: Please note: ??Patients with WBC >100,000 may have falsely elevated Potassium levels. ??For accurate Potassium quantification in these patients send serum separator tube (gold top) for subsequent determinations. ??Contact the Clinical Chemistry Laboratory if there are any questions. Chloride 104 98 - 107 mmol/L [facility] Carbon Dioxide 24 22 - 31 mmol/L [facility] Anion Gap 15 5 - 15 mmol/L [facility] Calcium 8.9 8.5 - 10.5 mg/dL [facility] Est Glomerular Filtration Rate >60 >=60 [facility] Comment: The reported eGFR should be multiplied by 1.2 for patients. The MDRD is not an appropriate measure of renal function for patients with body mass extremes or in patients with acute kidney failure. http://[employer]/DHnkdep http://[employer]/DHMCnkf Blood specimen (specimen) 12/06/2017 7:48 AM EDT 12/06/2017 7:53 AM EDT Narrative Resulting Agency Comment Spec In Lab Constantino Courtney MD CHEMISTRY ORDERABLES [facility] [place] [address] * EKG 12 Lead (12/05/2017 5:29 PM EDT) Ventricular rate 110 BPM MUSE SYSTEM Atrial Rate 110 BPM MUSE SYSTEM P-R Interval 142 ms MUSE SYSTEM QRS Duration 94 ms MUSE SYSTEM Q-T Interval 334 ms MUSE SYSTEM QTC Calculated (Bezet) 452 ms MUSE SYSTEM Calculated P [place] 33 degrees MUSE SYSTEM Calculated R [place] 57 degrees MUSE SYSTEM Calculated T [place] 60 degrees MUSE SYSTEM INTERPRETATION Sinus tachycardia Nonspecific ST/T wave abnormality Abnormal ECG When compared with ECG of 04-SEP-2017 22:30, Rate slower Confirmed by MD Oh, Sukhi Walker ([id number]) on 12/06/2017 10:46:47 AM MUSE SYSTEM 12/05/2017 5:29 PM EDT 12/06/2017 10:46 AM EDT Constantino Courtney MD ECG ORDERABLES Performing Organization Address [facility] de Phone Number MUSE SYSTEM * (ABNORMAL) Electrolytes panel (12/05/2017 1:17 PM EDT) Sodium 143 135 - 145 mmol/L [facility] Potassium 4.0 3.5 - 5.0 mmol/L [facility] Comment: Please note: ??Patients with WBC >100,000 may have falsely elevated Potassium levels. ??For accurate Potassium quantification in these patients send serum separator tube (gold top) for subsequent determinations. ??Contact the Clinical Chemistry Laboratory if there are any questions. Chloride 105 98 - 107 mmol/L [facility] Carbon Dioxide 21(L) 22 - 31 mmol/L [facility] Anion Gap 17(H) 5 - 15 mmol/L [facility] Blood specimen (specimen) 12/05/2017 1:17 PM EDT 12/05/2017 1:40 PM EDT Narrative Resulting Agency Comment Spec In Lab Fran Gilliam MD CHEMISTRY ORDERABL ES Performing Organization Address [facility] Co de Phone Number [facility] [place] [address] * Electrolytes panel (12/04/2017 3:16 PM EDT) Sodium 142 135 - 145 mmol/L [facility] Potassium 4.6 3.5 - 5.0 mmol/L [facility] Comment: result [id number] Please note: ??Patients with WBC >100,000 may have falsely elevated Potassium levels. ??For accurate Potassium quantification in these patients send serum separator tube (gold top) for subsequent determinations. ??Contact the Clinical Chemistry Laboratory if there are any questions. Chloride 106 98 - 107 mmol/L [facility] Carbon Dioxide 22 22 - 31 mmol/L [facility] Anion Gap 14 5 - 15 mmol/L [facility] Blood specimen (specimen) 12/04/2017 3:16 PM EDT 12/04/2017 3:27 PM EDT Narrative Resulting Agency Comment Spec In Lab Fran Gilliam MD CHEMISTRY ORDERABL ES Performing Organization Address [facility] Co de Phone Number [facility] [place] [address] * (ABNORMAL) Electrolytes panel (12/04/2017 6:27 AM EDT) Sodium 141 135 - 145 mmol/L [facility] Potassium 3.4(L) 3.5 - 5.0 mmol/L [facility] Comment: Please note: ??Patients with WBC >100,000 may have falsely elevated Potassium levels. ??For accurate Potassium quantification in these patients send serum separator tube (gold top) for subsequent determinations. ??Contact the Clinical Chemistry Laboratory if there are any questions. Chloride 102 98 - 107 mmol/L [facility] Carbon Dioxide 25 22 - 31 mmol/L [facility] Anion Gap 14 5 - 15 mmol/L [facility] Blood specimen (specimen) 12/04/2017 6:27 AM EDT 12/04/2017 6:39 AM EDT Narrative Resulting Agency Comment Spec In Lab Fran Gilliam MD CHEMISTRY ORDERABL ES Performing Organization Address [facility]/ZIP Co de Phone Number [facility] [place] [address] * (ABNORMAL) Basic Metabolic Panel (non-fasting) (12/03/2017 1:15 PM EDT) Glucose 96 65 - 199 mg/dL [facility] Comment:Diabetes: >=200 mg/d L plus symptoms Blood Urea Nitrogen 24(H) 10 - 20 mg/dL [facility] Creatinine 0.84 0.80 - 1.50 mg/dL [facility] Sodium 142 135 - 145 mmol/L [facility] Potassium 3.9 3.5 - 5.0 mmol/L [facility] Comment: Please note: ??Patients with WBC >100,000 may have falsely elevated Potassium levels. ??For accurate Potassium quantification in these patients send serum separator tube (gold top) for subsequent determinations. ??Contact the Clinical Chemistry Laboratory if there are any questions. Chloride 105 98 - 107 mmol/L [facility] Carbon Dioxide 20(L) 22 - 31 mmol/L [facility] Anion Gap 17(H) 5 - 15 mmol/L [facility] Calcium 9.2 8.5 - 10.5 mg/dL [facility] Est Glomerular Filtration Rate >60 >=60 [facility] Comment: The reported eGFR should be multiplied by 1.2 for patients. The MDRD is not an appropriate measure of renal function for patients with body mass extremes or in patients with acute kidney failure. http://[employer]/DHnkdep http://[employer]/DHMCnkf Blood specimen (specimen) 12/03/2017 1:15 PM EDT 12/03/2017 1:27 PM EDT Narrative Resulting Agency Comment Spec In Lab Fran Gilliam MD CHEMISTRY ORDERABL ES [facility] [place] [address] * (ABNORMAL) Electrolytes panel (12/03/2017 5:48 AM EDT) Sodium 144 135 - 145 mmol/L [facility] Potassium 3.5 3.5 - 5.0 mmol/L [facility] Comment: Please note: ??Patients with WBC >100,000 may have falsely elevated Potassium levels. ??For accurate Potassium quantification in these patients send serum separator tube (gold top) for subsequent determinations. ??Contact the Clinical Chemistry Laboratory if there are any questions. Chloride 106 98 - 107 mmol/L [facility] Carbon Dioxide 22 22 - 31 mmol/L [facility] Anion Gap 16(H) 5 - 15 mmol/L [facility] Blood specimen (specimen) 12/03/2017 5:48 AM EDT 12/03/2017 6:07 AM EDT Narrative Resulting Agency Comment Spec In Lab Fran Gilliam MD CHEMISTRY ORDERABL ES Performing Organization Address [facility] de Phone Number [facility] [place] [address] * (ABNORMAL) Electrolytes panel (12/02/2017 10:03 PM EDT) Sodium 146(H) 135 - 145 mmol/L [facility] Potassium 3.9 3.5 - 5.0 mmol/L [facility] Comment: Please note: ??Patients with WBC >100,000 may have falsely elevated Potassium levels. ??For accurate Potassium quantification in these patients send serum separator tube (gold top) for subsequent determinations. ??Contact the Clinical Chemistry Laboratory if there are any questions. Chloride 110(H) 98 - 107 mmol/L [facility] Carbon Dioxide 22 22 - 31 mmol/L [facility] Anion Gap 14 5 - 15 mmol/L [facility] Blood specimen (specimen) 12/02/2017 10:03 PM EDT 12/02/2017 10:11 PM EDT Narrative Resulting Agency Comment Spec In Lab Fran Gilliam MD CHEMISTRY ORDERABL ES [facility] [place] [address] * (ABNORMAL) Sodium (12/02/2017 11:40 AM EDT) Sodium 150(H) 135 - 145 mmol/L [facility] Blood specimen (specimen) 12/02/2017 11:40 AM EDT 12/02/2017 11:59 AM EDT Narrative Resulting Agency Comment Spec In Lab Fran Gilliam MD CHEMISTRY ORDERABL ES Performing Organization Address [facility] Co de Phone Number [facility] [place] [address] * (ABNORMAL) Electrolytes panel (12/02/2017 7:52 AM EDT) Sodium 153(H) 135 - 145 mmol/L [facility] Potassium 3.7 3.5 - 5.0 mmol/L [facility] Comment: Please note: ??Patients with WBC >100,000 may have falsely elevated Potassium levels. ??For accurate Potassium quantification in these patients send serum separator tube (gold top) for subsequent determinations. ??Contact the Clinical Chemistry Laboratory if there are any questions. Chloride 114(H) 98 - 107 mmol/L [facility] Carbon Dioxide 22 22 - 31 mmol/L [facility] Anion Gap 17(H) 5 - 15 mmol/L [facility] Blood specimen (specimen) 12/02/2017 7:52 AM EDT 12/02/2017 7:58 AM EDT Narrative Resulting Agency Comment Spec In Lab Fran Gilliam MD CHEMISTRY ORDERABL ES Performing Organization Address [facility] Co de Phone Number [facility] [place] [address] * (ABNORMAL) Basic Metabolic Panel (non-fasting) (12/01/2017 9:43 PM EDT) Glucose 132 65 - 199 mg/dL [facility] Comment:Diabetes: >=200 mg/d L plus symptoms Blood Urea Nitrogen 23(H) 10 - 20 mg/dL [facility] Creatinine 0.92 0.80 - 1.50 mg/dL [facility] Sodium 148(H) 135 - 145 mmol/L [facility] Potassium 3.6 3.5 - 5.0 mmol/L [facility] Comment: Please note: ??Patients with WBC >100,000 may have falsely elevated Potassium levels. ??For accurate Potassium quantification in these patients send serum separator tube (gold top) for subsequent determinations. ??Contact the Clinical Chemistry Laboratory if there are any questions. Chloride 111(H) 98 - 107 mmol/L [facility] Carbon Dioxide 25 22 - 31 mmol/L [facility] Anion Gap 12 5 - 15 mmol/L [facility] Calcium 8.6 8.5 - 10.5 mg/dL [facility] Est Glomerular Filtration Rate >60 >=60 [facility] Comment: The reported eGFR should be multiplied by 1.2 for patients. The MDRD is not an appropriate measure of renal function for patients with body mass extremes or in patients with acute kidney failure. http://[employer]/DHnkdep http://[employer]/DHMCnkf Blood specimen (specimen) 12/01/2017 9:43 PM EDT 12/01/2017 9:48 PM EDT Narrative Resulting Agency Comment Spec In Lab Fran Gilliam MD CHEMISTRY ORDERABL ES [facility] [place] [address] * (ABNORMAL) Basic Metabolic Panel (non-fasting) (12/01/2017 11:27 AM EDT) Glucose 99 65 - 199 mg/dL [facility] Comment:Diabetes: >=200 mg/d L plus symptoms Blood Urea Nitrogen 21(H) 10 - 20 mg/dL [facility] Creatinine 1.03 0.80 - 1.50 mg/dL [facility] Sodium 151(H) 135 - 145 mmol/L [facility] Potassium 4.0 3.5 - 5.0 mmol/L [facility] Comment: Please note: ??Patients with WBC >100,000 may have falsely elevated Potassium levels. ??For accurate Potassium quantification in these patients send serum separator tube (gold top) for subsequent determinations. ??Contact the Clinical Chemistry Laboratory if there are any questions. Chloride 114(H) 98 - 107 mmol/L [facility] Carbon Dioxide 24 22 - 31 mmol/L [facility] Anion Gap 13 5 - 15 mmol/L [facility] Calcium 9.3 8.5 - 10.5 mg/dL [facility] Est Glomerular Filtration Rate >60 >=60 [facility] Comment: The reported eGFR should be multiplied by 1.2 for patients. The MDRD is not an appropriate measure of renal function for patients with body mass extremes or in patients with acute kidney failure. http://[employer]/DHnkdep http://Un[employer]/DHMCnkf Blood specimen (specimen) 12/01/2017 11:27 AM EDT 12/01/2017 11:33 AM EDT Narrative Resulting Agency Comment Spec In Lab Fran Gilliam MD CHEMISTRY ORDERABL ES [facility] [place] [address] * T4, free (11/28/2017 10:52 AM EDT) Free T4 0.98 0.93 - 1.70 ng/dL [facility] Blood specimen (specimen) 11/28/2017 10:52 AM EDT 11/28/2017 11:07 AM EDT Narrative Resulting Agency Comment Spec In Lab Yadi Mccauley MD CHEMISTRY ORDERAB LES Performing Organization Address City/[facility]/ZIP Co de Phone Number [facility] [place] [address] * Basic Metabolic Panel (non-fasting) (11/26/2017 5:49 AM EDT) Glucose 84 65 - 199 mg/dL [facility] Comment:Diabetes: >=200 mg/d L plus symptoms Blood Urea Nitrogen 13 10 - 20 mg/dL [facility] Creatinine 0.80 0.80 - 1.50 mg/dL [facility] Sodium 143 135 - 145 mmol/L [facility] Potassium 3.7 3.5 - 5.0 mmol/L [facility] Comment: Please note: ??Patients with WBC >100,000 may have falsely elevated Potassium levels. ??For accurate Potassium quantification in these patients send serum separator tube (gold top) for subsequent determinations. ??Contact the Clinical Chemistry Laboratory if there are any questions. Chloride 105 98 - 107 mmol/L [facility] Carbon Dioxide 26 22 - 31 mmol/L [facility] Anion Gap 12 5 - 15 mmol/L [facility] Calcium 9.2 8.5 - 10.5 mg/dL [facility] Est Glomerular Filtration Rate >60 >=60 [facility] Comment: The reported eGFR should be multiplied by 1.2 for patients. The MDRD is not an appropriate measure of renal function for patients with body mass extremes or in patients with acute kidney failure. http://[employer]/DHnkdep http://[employer]/DHMCnkf Blood specimen (specimen) 11/26/2017 5:49 AM EDT 11/26/2017 6:03 AM EDT Narrative Resulting Agency Comment Spec In Lab Ren Sanchez III, MD CHEMISTRY ORDERABLES Performing Organization Address City/[facility]/ZIP Co de Phone Number [facility] [place] [address] * (ABNORMAL) Basic Metabolic Panel (non-fasting) (11/23/2017 9:53 AM EDT) Glucose 116 65 - 199 mg/dL [facility] Comment:Diabetes: >=200 mg/d L plus symptoms Blood Urea Nitrogen 11 10 - 20 mg/dL [facility] Creatinine 1.06 0.80 - 1.50 mg/dL [facility] Sodium 142 135 - 145 mmol/L [facility] Potassium 3.9 3.5 - 5.0 mmol/L [facility] Comment: Please note: ??Patients with WBC >100,000 may have falsely elevated Potassium levels. ??For accurate Potassium quantification in these patients send serum separator tube (gold top) for subsequent determinations. ??Contact the Clinical Chemistry Laboratory if there are any questions. Chloride 106 98 - 107 mmol/L [facility] Carbon Dioxide 21(L) 22 - 31 mmol/L [facility] Anion Gap 15 5 - 15 mmol/L [facility] Calcium 9.1 8.5 - 10.5 mg/dL [facility] Est Glomerular Filtration Rate >60 >=60 [facility] Comment: The reported eGFR should be multiplied by 1.2 for patients. The MDRD is not an appropriate measure of renal function for patients with body mass extremes or in patients with acute kidney failure. http://[employer]/DHnkdep http://[employer]/DHMCnkf Blood specimen (specimen) 11/23/2017 9:53 AM EDT 11/23/2017 10:10 AM EDT Narrative Resulting Agency Comment Spec In Lab Crista Aguilar MD CHEMISTRY ORDERABLE S [facility] [place] [address] * Basic Metabolic Panel (non-fasting) (11/22/2017 11:05 AM EDT) Glucose 106 65 - 199 mg/dL [facility] Comment:Diabetes: >=200 mg/d L plus symptoms Blood Urea Nitrogen 14 10 - 20 mg/dL [facility] Creatinine 0.84 0.80 - 1.50 mg/dL [facility] Sodium 140 135 - 145 mmol/L [facility] Potassium 4.0 3.5 - 5.0 mmol/L [facility] Comment: Please note: ??Patients with WBC >100,000 may have falsely elevated Potassium levels. ??For accurate Potassium quantification in these patients send serum separator tube (gold top) for subsequent determinations. ??Contact the Clinical Chemistry Laboratory if there are any questions. Chloride 101 98 - 107 mmol/L [facility] Carbon Dioxide 25 22 - 31 mmol/L [facility] Anion Gap 14 5 - 15 mmol/L [facility] Calcium 9.2 8.5 - 10.5 mg/dL [facility] Est Glomerular Filtration Rate >60 >=60 [facility] Comment: The reported eGFR should be multiplied by 1.2 for patients. The MDRD is not an appropriate measure of renal function for patients with body mass extremes or in patients with acute kidney failure. http://[employer]/DHnkdep http://[employer]/DHMCnkf Blood specimen (specimen) 11/22/2017 11:05 AM EDT 11/22/2017 11:14 AM EDT Narrative Resulting Agency Comment Spec In Lab Crista Aguilar MD CHEMISTRY ORDERABLE S [facility] [place] [address] * (ABNORMAL) T4, free (11/22/2017 11:05 AM EDT) Free T4 0.81(L) 0.93 - 1.70 ng/dL [facility] Blood specimen (specimen) 11/22/2017 11:05 AM EDT 11/22/2017 11:14 AM EDT Narrative Resulting Agency Comment Spec In Lab Yadi Mccauley MD CHEMISTRY ORDERAB LES [facility] [place] [address] * (ABNORMAL) Basic Metabolic Panel (non-fasting) (11/19/2017 5:00 PM EDT) Glucose 113 65 - 199 mg/dL [facility] Comment:Diabetes: >=200 mg/d L plus symptoms Blood Urea Nitrogen 12 10 - 20 mg/dL [facility] Creatinine 0.70(L) 0.80 - 1.50 mg/dL [facility] Sodium 134(L) 135 - 145 mmol/L [facility] Potassium 4.2 3.5 - 5.0 mmol/L [facility] Comment: Please note: ??Patients with WBC >100,000 may have falsely elevated Potassium levels. ??For accurate Potassium quantification in these patients send serum separator tube (gold top) for subsequent determinations. ??Contact the Clinical Chemistry Laboratory if there are any questions. Chloride 96(L) 98 - 107 mmol/L [facility] Carbon Dioxide 21(L) 22 - 31 mmol/L [facility] Anion Gap 17(H) 5 - 15 mmol/L [facility] Calcium 8.7 8.5 - 10.5 mg/dL [facility] Est Glomerular Filtration Rate >60 >=60 [facility] Comment: The reported eGFR should be multiplied by 1.2 for patients. The MDRD is not an appropriate measure of renal function for patients with body mass extremes or in patients with acute kidney failure. http://[employer]/DHnkdep http://[employer]/DHMCnkf Blood specimen (specimen) 11/19/2017 5:00 PM EDT 11/19/2017 5:06 PM EDT Narrative Resulting Agency Comment Spec In Lab Crista Aguilar MD CHEMISTRY ORDERABLE S Performing Organization Address City/[facility]/ZIP Co de Phone Number [facility] [place] [address] * (ABNORMAL) Basic Metabolic Panel (non-fasting) (11/19/2017 5:52 AM EDT) Glucose 85 65 - 199 mg/dL [facility] Comment:Diabetes: >=200 mg/d L plus symptoms Blood Urea Nitrogen 11 10 - 20 mg/dL [facility] Creatinine 0.79(L) 0.80 - 1.50 mg/dL [facility] Sodium 132(L) 135 - 145 mmol/L [facility] Potassium 3.7 3.5 - 5.0 mmol/L [facility] Comment: Please note: ??Patients with WBC >100,000 may have falsely elevated Potassium levels. ??For accurate Potassium quantification in these patients send serum separator tube (gold top) for subsequent determinations. ??Contact the Clinical Chemistry Laboratory if there are any questions. Chloride 93(L) 98 - 107 mmol/L [facility] Carbon Dioxide 24 22 - 31 mmol/L [facility] Anion Gap 15 5 - 15 mmol/L [facility] Calcium 8.9 8.5 - 10.5 mg/dL [facility] Est Glomerular Filtration Rate >60 >=60 [facility] Comment: The reported eGFR should be multiplied by 1.2 for patients. The MDRD is not an appropriate measure of renal function for patients with body mass extremes or in patients with acute kidney failure. http://[employer]/DHnkdep [email or web address].com/DHMCnkf Blood specimen (specimen) 11/19/2017 5:52 AM EDT 11/19/2017 6:14 AM EDT Narrative Resulting Agency Comment Spec In Lab Crista Aguilar MD CHEMISTRY ORDERABLE S Performing Organization Address City/[facility]/ZIP Co de Phone Number [facility] [place] [address] * XR Pelvis Judet or In Out [...] characterized on CT exam. Yossi Morin DO [facility] DX ORDERABLES * (ABNORMAL) Basic Metabolic Panel (non-fasting) (11/18/2017 5:15 AM EDT) Glucose 94 65 - 199 mg/dL [facility] Comment:Diabetes: >=200 mg/d L plus symptoms Blood Urea Nitrogen 12 10 - 20 mg/dL [facility] Creatinine 0.89 0.80 - 1.50 mg/dL [facility] Sodium 137 135 - 145 mmol/L [facility] Potassium 3.6 3.5 - 5.0 mmol/L [facility] Comment: Please note: ??Patients with WBC >100,000 may have falsely elevated Potassium levels. ??For accurate Potassium quantification in these patients send serum separator tube (gold top) for subsequent determinations. ??Contact the Clinical Chemistry Laboratory if there are any questions. Chloride 99 98 - 107 mmol/L [facility] Carbon Dioxide 25 22 - 31 mmol/L [facility] Anion Gap 13 5 - 15 mmol/L [facility] Calcium 8.4(L) 8.5 - 10.5 mg/dL [facility] Est Glomerular Filtration Rate >60 >=60 [facility] Comment: The reported eGFR should be multiplied by 1.2 for patients. The MDRD is not an appropriate measure of renal function for patients with body mass extremes or in patients with acute kidney failure. http://[employer]/DHnkdep http://[employer]/DHMCnkf Blood specimen (specimen) 11/18/2017 5:15 AM EDT 11/18/2017 5:21 AM EDT Narrative Resulting Agency Comment Spec In Lab Crista Aguilar MD CHEMISTRY ORDERABLE S [facility] [place] [address] * POCT Glucose (11/18/2017 3:09 AM EDT) Glucose, POC 146 65 - 199 mg/dL [facility] Comment: Supplemental ranges: <140 mg/dL before meals <180 mg/dL all other times of the day Blood specimen (specimen) 11/18/2017 3:09 AM EDT 11/18/2017 3:09 AM EDT Crista Aguilar MD POINT OF CARE TEST ORDERABLES [facility] [address] [facility] [place] [address] * XR Pelvis w AP & Lat [...] BMP w/fasting Glucose (11/17/2017 9:09 AM EDT) [facility] Glucose Fasting 112(H) 65 - 99 mg/dL [facility] Comment: ?Fasting* Glucose Interpretive Criteria [...] of Diabetes Mellitus, Position Statement from the [place] [employer]. ??Diabetes Care, Volume 33, Supplement 1, Jul 2009 Blood Urea Nitrogen 17 10 - 20 mg/dL [facility] Creatinine 0.87 0.80 - 1.50 mg/dL [facility] Sodium 139 135 - 145 mmol/L [facility] Potassium 3.4(L) 3.5 - 5.0 mmol/L [facility] Comment: Please note: ??Patients with WBC >100,000 may have falsely elevated Potassium levels. ??For accurate Potassium quantification in these patients send serum separator tube (gold top) for subsequent determinations. ??Contact the Clinical Chemistry Laboratory if there are any questions. Chloride 100 98 - 107 mmol/L [facility] Carbon Dioxide 24 22 - 31 mmol/L [facility] Anion Gap 15 5 - 15 mmol/L [facility] Calcium 8.9 8.5 - 10.5 mg/dL [facility] Est Glomerular Filtration Rate >60 >=60 [facility] Comment: The reported eGFR should be multiplied by 1.2 for patients. The MDRD is not an appropriate measure of renal function for patients with body mass extremes or in patients with acute kidney failure. http://[employer]/DHnkdep http://[employer]/DHMCnkf Blood specimen (specimen) 11/17/2017 9:09 AM EDT 11/17/2017 9:15 AM EDT Narrative Resulting Agency Comment Spec In Lab Kemi Camp APRN CHEMISTRY ORDERAB LES [facility] [place] [address] * T3 Total (11/17/2017 5:11 AM EDT) T3 Total 80 75 - 170 ng/dL [facility] Blood specimen (specimen) Venous Draw / Unknown 11/17/2017 5:11 AM EDT 11/17/2017 8:16 AM EDT Narrative Resulting Agency Comment Spec In Lab Yadi Mccauley MD CHEMISTRY ORDERAB LES Performing Organization Address City/[facility]/ZIP Co de Phone Number [facility] [place] [address] * (ABNORMAL) T4, free (11/17/2017 5:11 AM EDT) [facility] Free T4 0.72(L) 0.93 - 1.70 ng/dL [facility] Blood specimen (specimen) Venous Draw / Unknown 11/17/2017 5:11 AM EDT 11/17/2017 8:16 AM EDT Narrative Resulting Agency Comment Spec In Lab Yadi Mccauley MD CHEMISTRY ORDERAB LES Performing Organization Address [facility] Co de Phone Number [facility] [place] [address] * (ABNORMAL) Basic Metabolic Panel (non-fasting) (11/17/2017 5:11 AM EDT) [facility] Glucose 87 65 - 199 mg/dL [facility] Comment:Diabetes: >=200 mg/d L plus symptoms Blood Urea Nitrogen 17 10 - 20 mg/dL [facility] Creatinine 0.84 0.80 - 1.50 mg/dL [facility] Sodium 138 135 - 145 mmol/L [facility] Comment:result rechecked-jt Potassium 3.4(L) 3.5 - 5.0 mmol/L [facility] Comment: Please note: ??Patients with WBC >100,000 may have falsely elevated Potassium levels. ??For accurate Potassium quantification in these patients send serum separator tube (gold top) for subsequent determinations. ??Contact the Clinical Chemistry Laboratory if there are any questions. Chloride 99 98 - 107 mmol/L [facility] Comment:result rechecked-jt Carbon Dioxide 24 22 - 31 mmol/L [facility] Anion Gap 15 5 - 15 mmol/L [facility] Calcium 8.5 8.5 - 10.5 mg/dL [facility] Est Glomerular Filtration Rate >60 >=60 [facility] Comment: The reported eGFR should be multiplied by 1.2 for patients. The MDRD is not an appropriate measure of renal function for patients with body mass extremes or in patients with acute kidney failure. http://[employer]/DHnkdep http://[employer]/DHMCnkf Blood specimen (specimen) 11/17/2017 5:11 AM EDT 11/17/2017 5:26 AM EDT Narrative Resulting Agency Comment Spec In Lab Crista Aguilar MD CHEMISTRY ORDERABLE S [facility] [place] [address] * (ABNORMAL) Basic Metabolic Panel (non-fasting) (11/16/2017 7:52 PM EDT) Glucose 111 65 - 199 mg/dL [facility] Comment:Diabetes: >=200 mg/d L plus symptoms Blood Urea Nitrogen 20 10 - 20 mg/dL [facility] Creatinine 1.15 0.80 - 1.50 mg/dL [facility] Sodium 142 135 - 145 mmol/L [facility] Potassium 3.8 3.5 - 5.0 mmol/L [facility] Comment: Please note: ??Patients with WBC >100,000 may have falsely elevated Potassium levels. ??For accurate Potassium quantification in these patients send serum separator tube (gold top) for subsequent determinations. ??Contact the Clinical Chemistry Laboratory if there are any questions. Chloride 101 98 - 107 mmol/L [facility] Carbon Dioxide 25 22 - 31 mmol/L [facility] Anion Gap 16(H) 5 - 15 mmol/L [facility] Calcium 8.8 8.5 - 10.5 mg/dL [facility] Est Glomerular Filtration Rate >60 >=60 [facility] Comment: The reported eGFR should be multiplied by 1.2 for patients. The MDRD is not an appropriate measure of renal function for patients with body mass extremes or in patients with acute kidney failure. http://[employer]/DHnkdep http://[employer]/DHMCnkf Blood specimen (specimen) 11/16/2017 7:52 PM EDT 11/16/2017 7:57 PM EDT Narrative Resulting Agency Comment Spec In Lab Crista Aguilar MD CHEMISTRY ORDERABLE S Performing Organization Address [facility] Co de Phone Number [facility] [place] [address] * Specific [place], Urine (11/16/2017 6:24 AM EDT) Specific [place] Urine Automated 1.025 1.002 - 1.030 [facility] Urine specimen (specimen) 11/16/2017 6:24 AM EDT 11/16/2017 6:56 AM EDT Narrative Resulting Agency Comment Spec In Lab Yadi Mccauley MD URINE ORDERABLES Performing Organization Address [facility] Co de Phone Number [facility] [place] [address] * Electrolytes, urine, random (11/16/2017 6:24 AM EDT) Sodium, Urine 98 mmol/L [facility] Potassium, Urine 49 mmol/L [facility] Chloride, Urine 75 mmol/L [facility] Urine specimen (specimen) 11/16/2017 6:24 AM EDT 11/16/2017 6:56 AM EDT Narrative Resulting Agency Comment Spec In Lab Yossi Morin DO URINE ORDERABLES Performing Organization Address [facility] Co de Phone Number [facility] [place] [address] * Osmolality, urine, random (11/16/2017 6:24 AM EDT) Osmolality, Urine 493 50 - 1,200 mOsm/kg [facility] Urine specimen (specimen) 11/16/2017 6:24 AM EDT 11/16/2017 6:56 AM EDT Narrative Resulting Agency Comment Spec In Lab Yossi Anant Mikel URINE ORDERABLES [facility] [place] [address] * (ABNORMAL) Basic Metabolic Panel (non-fasting) (11/15/2017 5:44 PM EDT) Glucose 109 65 - 199 mg/dL [facility] Comment:Diabetes: >=200 mg/d L plus symptoms Blood Urea Nitrogen 13 10 - 20 mg/dL [facility] Creatinine 0.87 0.80 - 1.50 mg/dL [facility] Sodium 152(H) 135 - 145 mmol/L [facility] Potassium 3.8 3.5 - 5.0 mmol/L [facility] Comment: Please note: ??Patients with WBC >100,000 may have falsely elevated Potassium levels. ??For accurate Potassium quantification in these patients send serum separator tube (gold top) for subsequent determinations. ??Contact the Clinical Chemistry Laboratory if there are any questions. Chloride 110(H) 98 - 107 mmol/L [facility] Carbon Dioxide 25 22 - 31 mmol/L [facility] Anion Gap 17(H) 5 - 15 mmol/L [facility] Calcium 9.3 8.5 - 10.5 mg/dL [facility] Est Glomerular Filtration Rate >60 >=60 [facility] Comment: The reported eGFR should be multiplied by 1.2 for patients. The MDRD is not an appropriate measure of renal function for patients with body mass extremes or in patients with acute kidney failure. http://[employer]/nkdep http://Unifysquare/[facility] OKLA[facility] CITYnkf Blood specimen (specimen) 11/15/2017 5:44 PM EDT 11/15/2017 5:51 PM EDT Narrative Resulting Agency Comment Spec In Lab Crista Aguilar MD CHEMISTRY ORDERABLE S Performing Organization Address [facility] Co de Phone Number [facility] [place] [address] * (ABNORMAL) T4, free (11/15/2017 5:15 AM EDT) Free T4 0.71(L) 0.93 - 1.70 ng/dL [facility] Blood specimen (specimen) Venous Draw / Unknown 11/15/2017 5:15 AM EDT 11/15/2017 5:28 AM EDT Narrative Resulting Agency Comment Spec In Lab Yadi Mccauley MD CHEMISTRY ORDERAB LES Performing Organization Address [facility] Co de Phone Number [facility] [place] [address] * Magnesium (11/15/2017 5:15 AM EDT) Magnesium 0.92 0.69 - 1.07 mmol/L [facility] Blood specimen (specimen) 11/15/2017 5:15 AM EDT 11/15/2017 5:25 AM EDT Narrative Resulting Agency Comment Spec In Lab Yossi Morin DO CHEMISTRY ORDERABLES Performing Organization Address [facility] Co de Phone Number [facility] [place] [address] * (ABNORMAL) Basic Metabolic Panel (non-fasting) (11/15/2017 5:15 AM EDT) Glucose 109 65 - 199 mg/dL [facility] Comment:Diabetes: >=200 mg/d L plus symptoms Blood Urea Nitrogen 13 10 - 20 mg/dL [facility] Creatinine 0.92 0.80 - 1.50 mg/dL [facility] Sodium 151(H) 135 - 145 mmol/L [facility] Potassium 4.0 3.5 - 5.0 mmol/L [facility] Comment: Please note: ??Patients with WBC >100,000 may have falsely elevated Potassium levels. ??For accurate Potassium quantification in these patients send serum separator tube (gold top) for subsequent determinations. ??Contact the Clinical Chemistry Laboratory if there are any questions. Chloride 112(H) 98 - 107 mmol/L [facility] Comment:result rechecked-jt Carbon Dioxide 27 22 - 31 mmol/L [facility] Anion Gap 12 5 - 15 mmol/L [facility] Calcium 9.4 8.5 - 10.5 mg/dL [facility] Est Glomerular Filtration Rate >60 >=60 [facility] Comment: The reported eGFR should be multiplied by 1.2 for patients. The MDRD is not an appropriate measure of renal function for patients with body mass extremes or in patients with acute kidney failure. http://[employer]/DHnkdep http://[employer]/DHMCnkf Blood specimen (specimen) 11/15/2017 5:15 AM EDT 11/15/2017 5:25 AM EDT Narrative Resulting Agency Comment Spec In Lab Yossi Morin DO CHEMISTRY ORDERABLES Performing Organization Address City/State/[facility] Co de Phone Number [facility] [place] [address] * (ABNORMAL) Hemogram (11/14/2017 5:08 AM EDT) White Blood Cell 5.7 4.0 - 9.5 x10(3)/mc L [facility] Red Blood Cell 4.61 4.58 - 5.54 x10(6)/mc L [facility] Hemoglobin 11.5(L) 13.7 - 16.5 gm/dL [facility] Hematocrit 37.4(L) 40.5 - 48.5 % [facility] Mean Cell Volume 81.1(L) 82.9 - 93.1 fL [facility] Mean Cell Hemoglobin 24.9(L) 27.5 - 32.1 pg [facility] Mean Cell Hemoglobin Concentration 30.7(L) 32.0 - 35.7 gm/dL [facility] Platelet 274 145 - 357 x10(3)/mc L [facility] RDW Standard Deviation 48.6(H) 36.0 - 45.0 [facility] RDW coefficient of variation 16.5(H) 11.4 - 13.8 % [facility] Mean Platelet Volume 10.0 7.6 - 12.9 [facility] NRBC% auto 0.0 % [facility] NRBC Absolute 0.000 0.000 - 0.000 x10(3)/mc L [facility] Blood specimen (specimen) 11/14/2017 5:08 AM EDT 11/14/2017 5:44 AM EDT Narrative Resulting Agency Comment Spec In Lab Yossi Morin DO HEMATOLOGY ORDERABLE S Performing Organization Address [facility] Co de Phone Number [facility] [place] [address] * Magnesium (11/14/2017 5:08 AM EDT) Magnesium 0.84 0.69 - 1.07 mmol/L [facility] Blood specimen (specimen) 11/14/2017 5:08 AM EDT 11/14/2017 5:44 AM EDT Narrative Resulting Agency Comment Spec In Lab Yossi Morin DO CHEMISTRY ORDERABLES Performing Organization Address [facility] Co de Phone Number [facility] [place] [address] * Basic Metabolic Panel (non-fasting) (11/14/2017 5:08 AM EDT) Glucose 85 65 - 199 mg/dL [facility] Comment:Diabetes: >=200 mg/d L plus symptoms Blood Urea Nitrogen 12 10 - 20 mg/dL [facility] Creatinine 0.85 0.80 - 1.50 mg/dL [facility] Sodium 143 135 - 145 mmol/L [facility] Potassium 3.5 3.5 - 5.0 mmol/L [facility] Comment: Please note: ??Patients with WBC >100,000 may have falsely elevated Potassium levels. ??For accurate Potassium quantification in these patients send serum separator tube (gold top) for subsequent determinations. ??Contact the Clinical Chemistry Laboratory if there are any questions. Chloride 103 98 - 107 mmol/L [facility] Carbon Dioxide 28 22 - 31 mmol/L [facility] Anion Gap 12 5 - 15 mmol/L [facility] Calcium 9.2 8.5 - 10.5 mg/dL [facility] Est Glomerular Filtration Rate >60 >=60 [facility] Comment: The reported eGFR should be multiplied by 1.2 for patients. The MDRD is not an appropriate measure of renal function for patients with body mass extremes or in patients with acute kidney failure. http://[employer]if[employer]/DHnkdep http://Unif[employer]/DHMCnkf Blood specimen (specimen) 11/14/2017 5:08 AM EDT 11/14/2017 5:44 AM EDT Narrative Resulting Agency Comment Spec In Lab Yossi Morin DO CHEMISTRY ORDERABLES [facility] [place] [address] * Sodium (11/13/2017 7:16 PM EDT) Sodium 142 135 - 145 mmol/L [facility] Blood specimen (specimen) 11/13/2017 7:16 PM EDT 11/13/2017 7:26 PM EDT Narrative Resulting Agency Comment Spec In Lab Yossi Morin DO CHEMISTRY ORDERABLES [facility] [place] [address] * (ABNORMAL) Basic Metabolic Panel (non-fasting) (11/13/2017 6:33 AM EDT) Glucose 101 65 - 199 mg/dL [facility] Comment:Diabetes: >=200 mg/d L plus symptoms Blood Urea Nitrogen 11 10 - 20 mg/dL [facility] Creatinine 0.77(L) 0.80 - 1.50 mg/dL [facility] Sodium 148(H) 135 - 145 mmol/L [facility] Potassium Not Perf 3.5 - 5.0 mmol/L [facility] Comment: Unable to quantitate due to sample hemolysis. ??Sample redraw suggested. Called by: [facility], Read back by: Adia Clarke, Date/Time:11/13/17 09:21. Please note: ??Patients with WBC >100,000 may have falsely elevated Potassium levels. ??For accurate Potassium quantification in these patients send serum separator tube (gold top) for subsequent determinations. ??Contact the Clinical Chemistry Laboratory if there are any questions. Chloride 109(H) 98 - 107 mmol/L [facility] Carbon Dioxide Not Perf 22 - 31 mmol/L [facility] Comment: Lipemic interference. [facility] Corrected from 26 mMol/L on 11/13/17 07:54 by Tammie Caldwell Anion Gap Not Calculated 5 - 15 mmol/L [facility] Calcium 8.8 8.5 - 10.5 mg/dL [facility] Est Glomerular Filtration Rate >60 >=60 [facility] Comment: The reported eGFR should be multiplied by 1.2 for patients. The MDRD is not an appropriate measure of renal function for patients with body mass extremes or in patients with acute kidney failure. http://[employer]/DHnkdep http://Unif[employer]/DHMCnkf Blood specimen (specimen) 11/13/2017 6:33 AM EDT 11/13/2017 6:45 AM EDT Narrative Resulting Agency Comment Spec In Lab Yossi Morin CHEMISTRY ORDERABLES [facility] [place] [address] * (ABNORMAL) Basic Metabolic Panel (non-fasting) (11/10/2017 7:36 AM EDT) Glucose 84 65 - 199 mg/dL [facility] Comment:Diabetes: >=200 mg/d L plus symptoms Blood Urea Nitrogen 18 10 - 20 mg/dL [facility] Creatinine 0.87 0.80 - 1.50 mg/dL [facility] Comment:Specimen ultracentri fuged due to gross lipemia Sodium 145 135 - 145 mmol/L [facility] Comment:Specimen ultracentri fuged due to gross lipemia Potassium 3.7 3.5 - 5.0 mmol/L [facility] Comment: Please note: ??Patients with WBC >100,000 may have falsely elevated Potassium levels. ??For accurate Potassium quantification in these patients send serum separator tube (gold top) for subsequent determinations. ??Contact the Clinical Chemistry Laboratory if there are any questions. Chloride 99 98 - 107 mmol/L [facility] Carbon Dioxide 26 22 - 31 mmol/L [facility] Anion Gap 20(H) 5 - 15 mmol/L [facility] Calcium 8.9 8.5 - 10.5 mg/dL [facility] Est Glomerular Filtration Rate >60 >=60 [facility] Comment: The reported eGFR should be multiplied by 1.2 for patients. The MDRD is not an appropriate measure of renal function for patients with body mass extremes or in patients with acute kidney failure. http://[employer]if[employer]/DHnkdep http://Unif[employer]/DHMCnkf Blood specimen (specimen) 11/10/2017 7:36 AM EDT 11/10/2017 7:40 AM EDT Narrative Resulting Agency Comment Spec In Lab Prosper Doris Branden SANTANA CHEMISTRY ORDERABLES [facility] [place] [address] * Basic Metabolic Panel (non-fasting) (11/10/2017 6:24 AM EDT) Glucose 88 65 - 199 mg/dL [facility] Comment:Diabetes: >=200 mg/d L plus symptoms Blood Urea Nitrogen 18 10 - 20 mg/dL [facility] Creatinine Not Perf 0.80 - 1.50 [facility] Comment: Unable to quantitate due to sample hemolysis. ??Sample redraw suggested. Called by: [facility], Read back by: Emerald Domínguez, Date/Time:11/10/17 07:17. Sodium Not Perf 135 - 145 [facility] Comment: Unable to quantitate due to sample hemolysis. ??Sample redraw suggested. Called by: RENITA, Read back by: Emerald Domínguez, Date/Time:11/10/17 07:17. Potassium Not Perf 3.5 - 5.0 mmol/L [facility] Comment: Unable to quantitate due [...] questions. Chloride 98 98 - 107 mmol/L [facility] Carbon Dioxide 27 22 - 31 mmol/L [facility] Anion Gap Unable to Calculate 5 - 15 mmol/L [facility] Calcium 8.8 8.5 - 10.5 mg/dL [facility] Est Glomerular Filtration Rate Not Calculated >=60 [facility] Comment: The reported eGFR should be multiplied by 1.2 for patients. The MDRD is not an appropriate measure of renal function for patients with body mass extremes or in patients with acute kidney failure. http://[employer]/DHnkdep http://Unif[employer]/DHMCnkf Blood specimen (specimen) 11/10/2017 6:24 AM EDT 11/10/2017 6:33 AM EDT Narrative Resulting Agency Comment Spec In Lab Yossi Morin DO CHEMISTRY ORDERABLES [facility] [place] [address] * (ABNORMAL) Basic Metabolic Panel (non-fasting) (11/09/2017 8:41 PM EDT) Glucose 119 65 - 199 mg/dL [facility] Comment:Diabetes: >=200 mg/d L plus symptoms Blood Urea Nitrogen 18 10 - 20 mg/dL [facility] Creatinine 1.01 0.80 - 1.50 mg/dL [facility] Comment:Specimen ultracentri fuged due to gross lipemia Sodium 145 135 - 145 mmol/L [facility] Comment:Specimen ultracentri fuged due to gross lipemia Potassium Not Perf 3.5 - 5.0 mmol/L [facility] Comment: Unable to quantitate due to sample hemolysis. ??Sample redraw suggested. Called to Isabel ([facility]), 11/09/17 21:33 Please note: ??Patients with WBC >100,000 may have falsely elevated Potassium levels. ??For accurate Potassium quantification in these patients send serum separator tube (gold top) for subsequent determinations. ??Contact the Clinical Chemistry Laboratory if there are any questions. Chloride 104 98 - 107 mmol/L [facility] Comment:Specimen ultracentri fuged due to gross lipemia Carbon Dioxide 23 22 - 31 mmol/L [facility] Anion Gap 18(H) 5 - 15 mmol/L [facility] Calcium 8.9 8.5 - 10.5 mg/dL [facility] Est Glomerular Filtration Rate >60 >=60 [facility] Comment: The reported eGFR should be multiplied by 1.2 for patients. The MDRD is not an appropriate measure of renal function for patients with body mass extremes or in patients with acute kidney failure. http://[employer]if[employer]/DHnkdep http://[employer]if[employer]/DHMCnkf Blood specimen (specimen) 11/09/2017 8:41 PM EDT 11/09/2017 8:46 PM EDT Narrative Resulting Agency Comment Spec In Lab Yossi Morin DO CHEMISTRY ORDERABLES Performing Organization Address City/[facility] Co de Phone Number [facility] [place] [address] * Sodium (11/03/2017 4:03 AM EDT) Sodium 140 135 - 145 mmol/L [facility] Blood specimen (specimen) 11/03/2017 4:03 AM EDT 11/03/2017 4:36 AM EDT Narrative Resulting Agency Comment Spec In Lab Juliet Medeiros [employer] CHEMISTRY ORDERABLES Performing Organization Address [facility] Co de Phone Number [facility] [place] [address] * Sodium (11/02/2017 7:38 AM EDT) Sodium 136 135 - 145 mmol/L [facility] Blood specimen (specimen) 11/02/2017 7:38 AM EDT 11/02/2017 8:15 AM EDT Narrative Resulting Agency Comment Spec In Lab Juliet L Medeiros [employer] CHEMISTRY ORDERABLES Performing Organization Address City/[facility]/ZIP Co de Phone Number [facility] [place] [address] * Sodium (11/01/2017 5:01 AM EDT) Sodium 138 135 - 145 mmol/L [facility] Blood specimen (specimen) 11/01/2017 5:01 AM EDT 11/01/2017 5:34 AM EDT Narrative Resulting Agency Comment Spec In Lab Dillon Koch MD CHEMISTRY ORDERABLES Performing Organization Address [facility]/ZIP Co de Phone Number [facility] [place] [address] * Sodium (10/31/2017 10:19 AM EDT) Sodium 139 135 - 145 mmol/L [facility] Blood specimen (specimen) 10/31/2017 10:19 AM EDT 10/31/2017 10:39 AM EDT Narrative Resulting Agency Comment Spec In Lab Dillon Koch MD CHEMISTRY ORDERABLES Performing Organization Address [facility] Co de Phone Number [facility] [place] [address] * (ABNORMAL) Sodium (10/31/2017 6:37 AM EDT) Sodium 134(L) 135 - 145 mmol/L [facility] Blood specimen (specimen) 10/31/2017 6:37 AM EDT 10/31/2017 6:44 AM EDT Narrative Resulting Agency Comment Spec In Lab Dillon Koch MD CHEMISTRY ORDERABLES Performing Organization Address City/[facility] Co de Phone Number [facility] [place] [address] * Sodium (10/30/2017 3:53 AM EDT) Sodium 135 135 - 145 mmol/L [facility] Blood specimen (specimen) 10/30/2017 3:53 AM EDT 10/30/2017 3:58 AM EDT Narrative Resulting Agency Comment Spec In Lab Juliet Medeiros [employer] CHEMISTRY ORDERABLES Performing Organization Address City/[facility]/ZIP Co de Phone Number [facility] [place] [address] * Sodium (10/29/2017 5:54 AM EDT) Sodium 138 135 - 145 mmol/L [facility] Comment:Called by: SAVANNAH, Read back by: Jeannette, Date/Time:10/29/17 08:24. Blood specimen (specimen) 10/29/2017 5:54 AM EDT 10/29/2017 6:22 AM EDT Narrative Resulting Agency Comment Spec In Lab Juliet Medeiros [employer] CHEMISTRY ORDERABLES Performing Organization Address [facility] Co de Phone Number [facility] [place] [address] * Basic Metabolic Panel (non-fasting) (10/28/2017 9:22 AM EDT) Glucose 116 65 - 199 mg/dL [facility] Comment:Diabetes: >=200 mg/d L plus symptoms Blood Urea Nitrogen 15 10 - 20 mg/dL [facility] Creatinine 0.85 0.80 - 1.50 mg/dL [facility] Sodium 137 135 - 145 mmol/L [facility] Potassium 3.7 3.5 - 5.0 mmol/L [facility] Comment: Please note: ??Patients with WBC >100,000 may have falsely elevated Potassium levels. ??For accurate Potassium quantification in these patients send serum separator tube (gold top) for subsequent determinations. ??Contact the Clinical Chemistry Laboratory if there are any questions. Chloride 99 98 - 107 mmol/L [facility] Carbon Dioxide 24 22 - 31 mmol/L [facility] Anion Gap 14 5 - 15 mmol/L [facility] Calcium 9.1 8.5 - 10.5 mg/dL [facility] Est Glomerular Filtration Rate >60 >=60 [facility] Comment: The reported eGFR should be multiplied by 1.2 for patients. The MDRD is not an appropriate measure of renal function for patients with body mass extremes or in patients with acute kidney failure. http://[employer]/DHnkdep http://Unif[employer]/DHMCnkf Blood specimen (specimen) 10/28/2017 9:22 AM EDT 10/28/2017 9:31 AM EDT Narrative Resulting Agency Comment Spec In Lab Dillon Koch MD CHEMISTRY ORDERABLES [facility] [place] [address] * BMP w/fasting Glucose (10/28/2017 3:24 AM EDT) Glucose Fasting 82 65 - 99 mg/dL [facility] Comment: ?Fasting* Glucose Interpretive Criteria [...] of Diabetes Mellitus, Position Statement from the [place] [employer]. ??Diabetes Care, Volume 33, Supplement 1, Jul 2009 Blood Urea Nitrogen 16 10 - 20 mg/dL [facility] Creatinine 0.85 0.80 - 1.50 mg/dL [facility] Sodium 139 135 - 145 mmol/L [facility] Potassium 3.7 3.5 - 5.0 mmol/L [facility] Comment: Please note: ??Patients with WBC >100,000 may have falsely elevated Potassium levels. ??For accurate Potassium quantification in these patients send serum separator tube (gold top) for subsequent determinations. ??Contact the Clinical Chemistry Laboratory if there are any questions. Chloride 99 98 - 107 mmol/L [facility] Carbon Dioxide 26 22 - 31 mmol/L [facility] Anion Gap 14 5 - 15 mmol/L [facility] Calcium 8.9 8.5 - 10.5 mg/dL [facility] Est Glomerular Filtration Rate >60 >=60 [facility] Comment: The reported eGFR should be multiplied by 1.2 for patients. The MDRD is not an appropriate measure of renal function for patients with body mass extremes or in patients with acute kidney failure. http://[employer]/DHnkdep http://Unif[employer]/DHMCnkf Blood specimen (specimen) 10/28/2017 3:24 AM EDT 10/28/2017 3:42 AM EDT Narrative Resulting Agency Comment Spec In Lab Isabel Donis MD CHEMISTRY ORDERABLES Performing Organization Address [facility] Co de Phone Number [facility] [place] [address] * Sodium (10/27/2017 6:16 AM EDT) Sodium 140 135 - 145 mmol/L [facility] Blood specimen (specimen) 10/27/2017 6:16 AM EDT 10/27/2017 6:21 AM EDT Narrative Resulting Agency Comment Spec In Lab Juliet Medeiros APRN CHEMISTRY ORDERABLES Performing Organization Address [facility] Co de Phone Number [facility] [place] [address] * BMP w/fasting Glucose (10/25/2017 3:16 AM EDT) Glucose Fasting 79 65 - 99 mg/dL [facility] Comment: ?Fasting* Glucose Interpretive Criteria [...] of Diabetes Mellitus, Position Statement from the [place] [employer]. ??Diabetes Care, Volume 33, Supplement 1, Jul 2009 Blood Urea Nitrogen 17 10 - 20 mg/dL [facility] Creatinine 0.90 0.80 - 1.50 mg/dL [facility] Sodium 139 135 - 145 mmol/L [facility] Potassium 3.7 3.5 - 5.0 mmol/L [facility] Comment: Please note: ??Patients with WBC >100,000 may have falsely elevated Potassium levels. ??For accurate Potassium quantification in these patients send serum separator tube (gold top) for subsequent determinations. ??Contact the Clinical Chemistry Laboratory if there are any questions. Chloride 100 98 - 107 mmol/L [facility] Carbon Dioxide 26 22 - 31 mmol/L [facility] Anion Gap 13 5 - 15 mmol/L [facility] Calcium 9.2 8.5 - 10.5 mg/dL [facility] Est Glomerular Filtration Rate >60 >=60 [facility] Comment: The reported eGFR should be multiplied by 1.2 for patients. The MDRD is not an appropriate measure of renal function for patients with body mass extremes or in patients with acute kidney failure. http://[employer]/DHnkdep http://[employer]com/DHMCnkf Blood specimen (specimen) 10/25/2017 3:16 AM EDT 10/25/2017 3:42 AM EDT Narrative Resulting Agency Comment Spec In Lab Isabel Donis MD CHEMISTRY [place] [address] * (ABNORMAL) Differential, Automated (10/22/2017 5:02 AM EDT) Neutrophil % 47.9 % [facility] Neutrophil Absolute 3.14 1.70 - 6.10 x10(3)/ L [facility] Lymph % 36.0 % [facility] Lymphocytes Abs 2.4 0.9 - 3.2 x10(3)/[facility] Monocyte % 10.7 % [facility] Monocyte Abs 0.7 0.3 - 0.9 x10(3)/[facility] Eos % 3.7 % [facility] Eosinophils Abs 0.2 0.0 - 0.4 x10(3)/[facility] Basophil % 0.8 % [facility] Baso Absolute 0.0 0.0 - 0.1 x10(3)/[facility] Immature Gran % 0.90 % [facility] Comment: Immature granulocytes(IG's)percentage and absolute count will include metamyelocytes, myelocytes, and promyelocytes. Blood smears from CBCs yielding IG's will be scanned manually for concordance. If this scan disagrees with the automated IG or if promyelocytes are noted, a manual differential will be performed. Immature Gran Absolute 0.06(H) 0.00 - 0.04 x10(3)/ L [facility] Blood specimen (specimen) 10/22/2017 5:02 AM EDT 10/22/2017 5:10 AM EDT Narrative Resulting Agency Comment Spec In Lab Kemi Camp APRN HEMATOLOGY ORDERA BLES [facility] [place] [address] * (ABNORMAL) Hemogram (10/22/2017 5:02 AM EDT) Pathologist [facility] White Blood Cell 6.6 4.0 - 9.5 x10(3)/[facility] Red Blood Cell 5.06 4.58 - 5.54 x10(6)/[facility] Hemoglobin 12.9(L) 13.7 - 16.5 gm/dL [facility] Hematocrit 40.5 40.5 - 48.5 % [facility] Mean Cell Volume 80.0(L) 82.9 - 93.1 [facility] Comment: This result has been called to HOLLEY MEI by Desean Pope on 10 22 2017 at 0600, and has been read back. Mean Cell Hemoglobin 25.5(L) 27.5 - 32.1 pg [facility] Mean Cell Hemoglobin Concentration 31.9(L) 32.0 - 35.7 gm/dL [facility] Platelet 339 145 - 357 x10(3)/[facility] RDW Standard Deviation 45.7(H) 36.0 - 45.0 [facility] RDW coefficient of variation 15.8(H) 11.4 - 13.8 % [facility] Mean Platelet Volume 9.8 7.6 - 12.9 [facility] NRBC% auto 0.0 % [facility] NRBC Absolute 0.000 0.000 - 0.000 x10(3)/[facility] Blood specimen (specimen) 10/22/2017 5:02 AM EDT 10/22/2017 5:10 AM EDT Narrative Resulting Agency Comment Spec In Lab Kemi Camp APRN HEMATOLOGY ORDERA BLES [facility] [place] [address] * (ABNORMAL) BMP w/fasting Glucose (10/22/2017 5:02 AM EDT) Glucose Fasting 103(H) 65 - 99 mg/dL [facility] Comment: ?Fasting* Glucose Interpretive Criteria [...] of Diabetes Mellitus, Position Statement from the [place] [employer]. ??Diabetes Care, Volume 33, Supplement 1, Jul 2009 Blood Urea Nitrogen 11 10 - 20 mg/dL [facility] Creatinine 0.74(L) 0.80 - 1.50 mg/dL [facility] Sodium 141 135 - 145 mmol/L [facility] Potassium 4.0 3.5 - 5.0 mmol/L [facility] Comment: Please note: ??Patients with WBC >100,000 may have falsely elevated Potassium levels. ??For accurate Potassium quantification in these patients send serum separator tube (gold top) for subsequent determinations. ??Contact the Clinical Chemistry Laboratory if there are any questions. Chloride 103 98 - 107 mmol/L [facility] Carbon Dioxide 22 22 - 31 mmol/L [facility] Anion Gap 16(H) 5 - 15 mmol/L [facility] Calcium 9.2 8.5 - 10.5 mg/dL [facility] Est Glomerular Filtration Rate >60 >=60 [facility] Comment: The reported eGFR should be multiplied by 1.2 for patients. The MDRD is not an appropriate measure of renal function for patients with body mass extremes or in patients with acute kidney failure. http://[employer]/DHnkdep http://[employer]/DHMCnkf Blood specimen (specimen) 10/22/2017 5:02 AM EDT 10/22/2017 5:10 AM EDT Narrative Resulting Agency Comment Spec In Lab Kemi Cmap [employer] CHEMISTRY ORDERAB LES [facility] [place] [address] * (ABNORMAL) BMP w/fasting Glucose (10/21/2017 4:03 AM EDT) Glucose Fasting 90 65 - 99 mg/dL [facility] Comment: ?Fasting* Glucose Interpretive Criteria [...] of Diabetes Mellitus, Position Statement from the [place] [employer]. ??Diabetes Care, Volume 33, Supplement [...] of Diabetes Mellitus, Position Statement from the [place] [employer]. ??Diabetes Care, Volume 33, Supplement 1, Jul 2009 Corrected from 90 mg/dL on 10/21/17 05:22 by Hannah Saenz Blood Urea Nitrogen 16 10 - 20 mg/dL [facility] Creatinine 0.91 0.80 - 1.50 mg/dL [facility] Sodium 134(L) 135 - 145 mmol/L [facility] Potassium 4.3 3.5 - 5.0 mmol/L [facility] Comment: Please note: ??Patients with WBC >100,000 may have falsely elevated Potassium levels. ??For accurate Potassium quantification in these patients send serum separator tube (gold top) for subsequent determinations. ??Contact the Clinical Chemistry Laboratory if there are any questions. Chloride 95(L) 98 - 107 mmol/L [facility] Carbon Dioxide 23 22 - 31 mmol/L [facility] Anion Gap 16(H) 5 - 15 mmol/L [facility] Calcium 9.5 8.5 - 10.5 mg/dL [facility] Est Glomerular Filtration Rate >60 >=60 [facility] Comment: The reported eGFR should be multiplied by 1.2 for patients. The MDRD is not an appropriate measure of renal function for patients with body mass extremes or in patients with acute kidney failure. http://[employer]/DHnkdep http://[employer]/DHnkf Blood specimen (specimen) 10/21/2017 4:03 AM EDT 10/21/2017 4:11 AM EDT Narrative Resulting Agency Comment Spec In Lab Kemi Camp APRN CHEMISTRY ORDERAB LES Performing Organization Address City/State/[facility] Co de Phone Number [facility] [place] [address] * CT Face wo Contrast (10/20/2017 12:07 [...] EDT) Glucose 92 65 - 199 mg/dL [facility] Comment:Diabetes: >=200 mg/d L plus symptoms Blood Urea Nitrogen 16 10 - 20 mg/dL [facility] Creatinine 0.98 0.80 - 1.50 mg/dL [facility] Sodium 141 135 - 145 mmol/L [facility] Potassium 3.8 3.5 - 5.0 mmol/L [facility] Comment: Please note: ??Patients with WBC >100,000 may have falsely elevated Potassium levels. ??For accurate Potassium quantification in these patients send serum separator tube (gold top) for subsequent determinations. ??Contact the Clinical Chemistry Laboratory if there are any questions. Chloride 101 98 - 107 mmol/L [facility] Carbon Dioxide 23 22 - 31 mmol/L [facility] Anion Gap 17(H) 5 - 15 mmol/L [facility] Calcium 9.1 8.5 - 10.5 mg/dL [facility] Est Glomerular Filtration Rate >60 >=60 [facility] Comment: The reported eGFR should be multiplied by 1.2 for patients. The MDRD is not an appropriate measure of renal function for patients with body mass extremes or in patients with acute kidney failure. [email or web address] Blood specimen (specimen) 10/19/2017 9:55 AM EDT 10/19/2017 9:59 AM EDT Narrative Resulting Agency Comment Spec In Lab Isabel Donis MD CHEMISTRY ORDERABLES [facility] [place] [id number] * (ABNORMAL) Basic Metabolic Panel (non-fasting) (10/17/2017 6:27 PM EDT) Glucose 129 65 - 199 mg/dL [facility] Comment:Diabetes: >=200 mg/d L plus symptoms Blood Urea Nitrogen 15 10 - 20 mg/dL [facility] Creatinine 0.86 0.80 - 1.50 mg/dL [facility] Sodium 142 135 - 145 mmol/L [facility] Potassium Not Perf 3.5 - 5.0 mmol/L [facility] Comment: Unable to quantitate due to sample hemolysis. ??Sample redraw suggested. Please note: ??Patients with WBC >100,000 may have falsely elevated Potassium levels. ??For accurate Potassium quantification in these patients send serum separator tube (gold top) for subsequent determinations. ??Contact the Clinical Chemistry Laboratory if there are any questions. Chloride 102 98 - 107 mmol/L [facility] Carbon Dioxide 22 22 - 31 mmol/L [facility] Anion Gap 18(H) 5 - 15 mmol/L [facility] Calcium 8.8 8.5 - 10.5 mg/dL [facility] Est Glomerular Filtration Rate >60 >=60 [facility] Comment: The reported eGFR should be multiplied by 1.2 for patients. The MDRD is not an appropriate measure of renal function for patients with body mass extremes or in patients with acute kidney failure. [email or web address] Blood specimen (specimen) 10/17/2017 6:27 PM EDT 10/17/2017 7:26 PM EDT Narrative Resulting Agency Comment Spec In Lab Kalpana Rubin MD CHEMISTRY ORDERABLES [facility] [place] [address] * Basic Metabolic Panel (non-fasting) (10/16/2017 10:26 AM EDT) Glucose 124 65 - 199 mg/dL [facility] Comment:Diabetes: >=200 mg/d L plus symptoms Blood Urea Nitrogen 16 10 - 20 mg/dL [facility] Creatinine 0.86 0.80 - 1.50 mg/dL [facility] Sodium 141 135 - 145 mmol/L [facility] Potassium 4.0 3.5 - 5.0 mmol/L [facility] Comment: Please note: ??Patients with WBC >100,000 may have falsely elevated Potassium levels. ??For accurate Potassium quantification in these patients send serum separator tube (gold top) for subsequent determinations. ??Contact the Clinical Chemistry Laboratory if there are any questions. Chloride 104 98 - 107 mmol/L [facility] Carbon Dioxide 22 22 - 31 mmol/L [facility] Anion Gap 15 5 - 15 mmol/L [facility] Calcium 9.2 8.5 - 10.5 mg/dL [facility] Est Glomerular Filtration Rate >60 >=60 [facility] Comment: The reported eGFR should be multiplied by 1.2 for patients. The MDRD is not an appropriate measure of renal function for patients with body mass extremes or in patients with acute kidney failure. [email or web address] Blood specimen (specimen) 10/16/2017 10:26 AM EDT 10/16/2017 10:34 AM EDT Narrative Resulting Agency Comment Spec In Lab Dillon Koch MD CHEMISTRY ORDERABLES [facility] [place] [address] * Basic Metabolic Panel (non-fasting) (10/15/2017 8:27 AM EDT) Glucose 85 65 - 199 mg/dL [facility] Comment:Diabetes: >=200 mg/d L plus symptoms Blood Urea Nitrogen 16 10 - 20 mg/dL [facility] Creatinine 0.99 0.80 - 1.50 mg/dL [facility] Sodium 140 135 - 145 mmol/L [facility] Potassium 3.7 3.5 - 5.0 mmol/L [facility] Comment: Please note: ??Patients with WBC >100,000 may have falsely elevated Potassium levels. ??For accurate Potassium quantification in these patients send serum separator tube (gold top) for subsequent determinations. ??Contact the Clinical Chemistry Laboratory if there are any questions. Chloride 101 98 - 107 mmol/L [facility] Carbon Dioxide 24 22 - 31 mmol/L [facility] Anion Gap 15 5 - 15 mmol/L [facility] Calcium 8.9 8.5 - 10.5 mg/dL [facility] Est Glomerular Filtration Rate >60 >=60 [facility] Comment: The reported eGFR should be multiplied by 1.2 for patients. The MDRD is not an appropriate measure of renal function for patients with body mass extremes or in patients with acute kidney failure. [email or web address] Blood specimen (specimen) 10/15/2017 8:27 AM EDT 10/15/2017 8:33 AM EDT Narrative Resulting Agency Comment Spec In Lab Dillon Koch MD CHEMISTRY ORDERABLES [facility] [place] [address] * (ABNORMAL) Basic Metabolic Panel (non-fasting) (10/14/2017 1:36 PM EDT) Glucose 99 65 - 199 mg/dL [facility] Comment:Diabetes: >=200 mg/d L plus symptoms Blood Urea Nitrogen 18 10 - 20 mg/dL [facility] Creatinine 0.85 0.80 - 1.50 mg/dL [facility] Sodium 140 135 - 145 mmol/L [facility] Potassium 3.6 3.5 - 5.0 mmol/L [facility] Comment: Please note: ??Patients with WBC >100,000 may have falsely elevated Potassium levels. ??For accurate Potassium quantification in these patients send serum separator tube (gold top) for subsequent determinations. ??Contact the Clinical Chemistry Laboratory if there are any questions. Chloride 100 98 - 107 mmol/L [facility] Carbon Dioxide 23 22 - 31 mmol/L [facility] Anion Gap 17(H) 5 - 15 mmol/L [facility] Calcium 9.3 8.5 - 10.5 mg/dL [facility] Est Glomerular Filtration Rate >60 >=60 [facility] Comment: The reported eGFR should be multiplied by 1.2 for patients. The MDRD is not an appropriate measure of renal function for patients with body mass extremes or in patients with acute kidney failure. [email or web address] Blood specimen (specimen) 10/14/2017 1:36 PM EDT 10/14/2017 1:44 PM EDT Narrative Resulting Agency Comment Spec In Lab Dillon Koch MD CHEMISTRY ORDERABLES [facility] [place] [address] * Basic Metabolic Panel (non-fasting) (10/13/2017 11:54 PM EDT) Glucose 95 65 - 199 mg/dL [facility] Comment:Diabetes: >=200 mg/d L plus symptoms Blood Urea Nitrogen 15 10 - 20 mg/dL [facility] Creatinine 0.88 0.80 - 1.50 mg/dL [facility] Sodium 140 135 - 145 mmol/L [facility] Potassium 3.8 3.5 - 5.0 mmol/L [facility] Comment: Please note: ??Patients with WBC >100,000 may have falsely elevated Potassium levels. ??For accurate Potassium quantification in these patients send serum separator tube (gold top) for subsequent determinations. ??Contact the Clinical Chemistry Laboratory if there are any questions. Chloride 103 98 - 107 mmol/L [facility] Carbon Dioxide 24 22 - 31 mmol/L [facility] Anion Gap 13 5 - 15 mmol/L [facility] Calcium 8.6 8.5 - 10.5 mg/dL [facility] Est Glomerular Filtration Rate >60 >=60 [facility] Comment: The reported eGFR should be multiplied by 1.2 for patients. The MDRD is not an appropriate measure of renal function for patients with body mass extremes or in patients with acute kidney failure. [email or web address] Blood specimen (specimen) 10/13/2017 11:54 PM EDT 10/13/2017 11:57 PM EDT Narrative Resulting Agency Comment Spec In Lab Dillon Koch MD CHEMISTRY ORDERABLES [facility] [place] [address] * (ABNORMAL) Basic Metabolic Panel (non-fasting) (10/13/2017 6:12 PM EDT) Glucose 107 65 - 199 mg/dL [facility] Comment:Diabetes: >=200 mg/d L plus symptoms Blood Urea Nitrogen 14 10 - 20 mg/dL [facility] Creatinine 0.69(L) 0.80 - 1.50 mg/dL [facility] Sodium 143 135 - 145 mmol/L [facility] Potassium 3.8 3.5 - 5.0 mmol/L [facility] Comment: Please note: ??Patients with WBC >100,000 may have falsely elevated Potassium levels. ??For accurate Potassium quantification in these patients send serum separator tube (gold top) for subsequent determinations. ??Contact the Clinical Chemistry Laboratory if there are any questions. Chloride 104 98 - 107 mmol/L [facility] Carbon Dioxide 23 22 - 31 mmol/L [facility] Anion Gap 16(H) 5 - 15 mmol/L [facility] Calcium 8.7 8.5 - 10.5 mg/dL [facility] Est Glomerular Filtration Rate >60 >=60 [facility] Comment: The reported eGFR should be multiplied by 1.2 for patients. The MDRD is not an appropriate measure of renal function for patients with body mass extremes or in patients with acute kidney failure. [email or web address] Blood specimen (specimen) 10/13/2017 6:12 PM EDT 10/13/2017 6:18 PM EDT Narrative Resulting Agency Comment Spec In Lab Dillon Koch MD CHEMISTRY ORDERABLES [facility] [place] [address] * XR Pelvis Judet or In Out [...] EDT) Glucose 93 65 - 199 mg/dL [facility] Comment:Diabetes: >=200 mg/d L plus symptoms Blood Urea Nitrogen 16 10 - 20 mg/dL [facility] Creatinine 0.74(L) 0.80 - 1.50 mg/dL [facility] Sodium 144 135 - 145 mmol/L [facility] Potassium 3.9 3.5 - 5.0 mmol/L [facility] Comment: Please note: ??Patients with WBC >100,000 may have falsely elevated Potassium levels. ??For accurate Potassium quantification in these patients send serum separator tube (gold top) for subsequent determinations. ??Contact the Clinical Chemistry Laboratory if there are any questions. Chloride 105 98 - 107 mmol/L [facility] Carbon Dioxide 23 22 - 31 mmol/L [facility] Anion Gap 16(H) 5 - 15 mmol/L [facility] Calcium 9.1 8.5 - 10.5 mg/dL [facility] Est Glomerular Filtration Rate >60 >=60 [facility] Comment: The reported eGFR should be multiplied by 1.2 for patients. The MDRD is not an appropriate measure of renal function for patients with body mass extremes or in patients with acute kidney failure. [email or web address] Blood specimen (specimen) 10/13/2017 3:34 AM EDT 10/13/2017 4:00 AM EDT Narrative Resulting Agency Comment Spec In Lab Dillon Koch MD CHEMISTRY ORDERABLES [facility] [place] [address] * (ABNORMAL) Basic Metabolic Panel (non-fasting) (10/12/2017 7:09 PM EDT) Glucose 80 65 - 199 mg/dL [facility] Comment:Diabetes: >=200 mg/d L plus symptoms Blood Urea Nitrogen 17 10 - 20 mg/dL [facility] Creatinine 0.80 0.80 - 1.50 mg/dL [facility] Sodium 148(H) 135 - 145 mmol/L [facility] Potassium 3.6 3.5 - 5.0 mmol/L [facility] Comment: Please note: ??Patients with WBC >100,000 may have falsely elevated Potassium levels. ??For accurate Potassium quantification in these patients send serum separator tube (gold top) for subsequent determinations. ??Contact the Clinical Chemistry Laboratory if there are any questions. Chloride 106 98 - 107 mmol/L [facility] Carbon Dioxide 26 22 - 31 mmol/L [facility] Anion Gap 16(H) 5 - 15 mmol/L [facility] Calcium 9.2 8.5 - 10.5 mg/dL [facility] Est Glomerular Filtration Rate >60 >=60 [facility] Comment: The reported eGFR should be multiplied by 1.2 for patients. The MDRD is not an appropriate measure of renal function for patients with body mass extremes or in patients with acute kidney failure. [email or web address] Blood specimen (specimen) 10/12/2017 7:09 PM EDT 10/13/2017 5:09 AM EDT Narrative Resulting Agency Comment Spec In Lab Dillon Koch MD CHEMISTRY ORDERABLES [facility] [place] [address] * (ABNORMAL) Basic Metabolic Panel (non-fasting) (10/12/2017 11:33 AM EDT) Glucose 117 65 - 199 mg/dL [facility] Comment:Diabetes: >=200 mg/d L plus symptoms Blood Urea Nitrogen 19 10 - 20 mg/dL [facility] Creatinine 0.78(L) 0.80 - 1.50 mg/dL [facility] Sodium 146(H) 135 - 145 mmol/L [facility] Potassium 3.8 3.5 - 5.0 mmol/L [facility] Comment: Please note: ??Patients with WBC >100,000 may have falsely elevated Potassium levels. ??For accurate Potassium quantification in these patients send serum separator tube (gold top) for subsequent determinations. ??Contact the Clinical Chemistry Laboratory if there are any questions. Chloride 108(H) 98 - 107 mmol/L [facility] Carbon Dioxide 22 22 - 31 mmol/L [facility] Anion Gap 16(H) 5 - 15 mmol/L [facility] Calcium 9.2 8.5 - 10.5 mg/dL [facility] Est Glomerular Filtration Rate >60 >=60 [facility] Comment: The reported eGFR should be multiplied by 1.2 for patients. The MDRD is not an appropriate measure of renal function for patients with body mass extremes or in patients with acute kidney failure. [email or web address] Blood specimen (specimen) 10/12/2017 11:33 AM EDT 10/12/2017 11:37 AM EDT Narrative Resulting Agency Comment Spec In Lab Dillon Koch MD CHEMISTRY ORDERABLES [facility] [place] [address] * Basic Metabolic Panel (non-fasting) (10/12/2017 3:34 AM EDT) Glucose 106 65 - 199 mg/dL [facility] Comment:Diabetes: >=200 mg/d L plus symptoms Blood Urea Nitrogen 20 10 - 20 mg/dL [facility] Creatinine 0.93 0.80 - 1.50 mg/dL [facility] Sodium 145 135 - 145 mmol/L [facility] Potassium 3.6 3.5 - 5.0 mmol/L [facility] Comment: Please note: ??Patients with WBC >100,000 may have falsely elevated Potassium levels. ??For accurate Potassium quantification in these patients send serum separator tube (gold top) for subsequent determinations. ??Contact the Clinical Chemistry Laboratory if there are any questions. Chloride 104 98 - 107 mmol/L [facility] Carbon Dioxide 26 22 - 31 mmol/L [facility] Anion Gap 15 5 - 15 mmol/L [facility] Calcium 9.1 8.5 - 10.5 mg/dL [facility] Est Glomerular Filtration Rate >60 >=60 [facility] Comment: The reported eGFR should be multiplied by 1.2 for patients. The MDRD is not an appropriate measure of renal function for patients with body mass extremes or in patients with acute kidney failure. [email or web address] Blood specimen (specimen) 10/12/2017 3:34 AM EDT 10/12/2017 4:02 AM EDT Narrative Resulting Agency Comment Spec In Lab Dillon Koch MD CHEMISTRY ORDERABLES [facility] [place] [address] * (ABNORMAL) Basic Metabolic Panel (non-fasting) (10/11/2017 8:48 PM EDT) Glucose 129 65 - 199 mg/dL [facility] Comment:Diabetes: >=200 mg/d L plus symptoms Blood Urea Nitrogen 22(H) 10 - 20 mg/dL [facility] Creatinine 1.03 0.80 - 1.50 mg/dL [facility] Sodium 143 135 - 145 mmol/L [facility] Potassium 4.0 3.5 - 5.0 mmol/L [facility] Comment: Please note: ??Patients with WBC >100,000 may have falsely elevated Potassium levels. ??For accurate Potassium quantification in these patients send serum separator tube (gold top) for subsequent determinations. ??Contact the Clinical Chemistry Laboratory if there are any questions. Chloride 102 98 - 107 mmol/L [facility] Carbon Dioxide 22 22 - 31 mmol/L [facility] Anion Gap 19(H) 5 - 15 mmol/L [facility] Calcium 9.3 8.5 - 10.5 mg/dL [facility] Est Glomerular Filtration Rate >60 >=60 [facility] Comment: The reported eGFR should be multiplied by 1.2 for patients. The MDRD is not an appropriate measure of renal function for patients with body mass extremes or in patients with acute kidney failure. [email or web address] Blood specimen (specimen) 10/11/2017 8:48 PM EDT 10/11/2017 8:51 PM EDT Narrative Resulting Agency Comment Spec In Lab Dillon Koch MD CHEMISTRY ORDERABLES [facility] [place] [address] * (ABNORMAL) Basic Metabolic Panel (non-fasting) (10/11/2017 11:46 AM EDT) Glucose 123 65 - 199 mg/dL [facility] Comment:Diabetes: >=200 mg/d L plus symptoms Blood Urea Nitrogen 20 10 - 20 mg/dL [facility] Creatinine 1.10 0.80 - 1.50 mg/dL [facility] Sodium 144 135 - 145 mmol/L [facility] Potassium 4.1 3.5 - 5.0 mmol/L [facility] Comment: Please note: ??Patients with WBC >100,000 may have falsely elevated Potassium levels. ??For accurate Potassium quantification in these patients send serum separator tube (gold top) for subsequent determinations. ??Contact the Clinical Chemistry Laboratory if there are any questions. Chloride 104 98 - 107 mmol/L [facility] Carbon Dioxide 22 22 - 31 mmol/L [facility] Anion Gap 18(H) 5 - 15 mmol/L [facility] Calcium 9.7 8.5 - 10.5 mg/dL [facility] Est Glomerular Filtration Rate >60 >=60 [facility] Comment: The reported eGFR should be multiplied by 1.2 for patients. The MDRD is not an appropriate measure of renal function for patients with body mass extremes or in patients with acute kidney failure. [email or web address] Blood specimen (specimen) 10/11/2017 11:46 AM EDT 10/11/2017 11:54 AM EDT Narrative Resulting Agency Comment Spec In Lab Dillon Koch MD CHEMISTRY ORDERABLES [facility] [place] [address] * (ABNORMAL) Basic Metabolic Panel (non-fasting) (10/11/2017 6:05 AM EDT) Glucose 84 65 - 199 mg/dL [facility] Comment:Diabetes: >=200 mg/d L plus symptoms Blood Urea Nitrogen 21(H) 10 - 20 mg/dL [facility] Creatinine 1.09 0.80 - 1.50 mg/dL [facility] Sodium 151(H) 135 - 145 mmol/L [facility] Potassium 3.8 3.5 - 5.0 mmol/L [facility] Comment: Please note: ??Patients with WBC >100,000 may have falsely elevated Potassium levels. ??For accurate Potassium quantification in these patients send serum separator tube (gold top) for subsequent determinations. ??Contact the Clinical Chemistry Laboratory if there are any questions. Chloride 109(H) 98 - 107 mmol/L [facility] Carbon Dioxide 24 22 - 31 mmol/L [facility] Anion Gap 18(H) 5 - 15 mmol/L [facility] Calcium 9.5 8.5 - 10.5 mg/dL [facility] Est Glomerular Filtration Rate >60 >=60 [facility] Comment: The reported eGFR should be multiplied by 1.2 for patients. The MDRD is not an appropriate measure of renal function for patients with body mass extremes or in patients with acute kidney failure. [email or web address] Blood specimen (specimen) 10/11/2017 6:05 AM EDT 10/11/2017 6:38 AM EDT Narrative Resulting Agency Comment Spec In Lab Dillon Koch MD CHEMISTRY ORDERABLES [facility] [place] [address] * (ABNORMAL) Basic Metabolic Panel (non-fasting) (10/10/2017 8:05 PM EDT) Glucose 107 65 - 199 mg/dL [facility] Comment:Diabetes: >=200 mg/d L plus symptoms Blood Urea Nitrogen 24(H) 10 - 20 mg/dL [facility] Creatinine 1.35 0.80 - 1.50 mg/dL [facility] Sodium 153(H) 135 - 145 mmol/L [facility] Potassium 3.9 3.5 - 5.0 mmol/L [facility] Comment: Please note: ??Patients with WBC >100,000 may have falsely elevated Potassium levels. ??For accurate Potassium quantification in these patients send serum separator tube (gold top) for subsequent determinations. ??Contact the Clinical Chemistry Laboratory if there are any questions. Chloride 112(H) 98 - 107 mmol/L [facility] Carbon Dioxide 23 22 - 31 mmol/L [facility] Anion Gap 18(H) 5 - 15 mmol/L [facility] Calcium 9.5 8.5 - 10.5 mg/dL [facility] Est Glomerular Filtration Rate >60 >=60 [facility] Comment: The reported eGFR should be multiplied by 1.2 for patients. The MDRD is not an appropriate measure of renal function for patients with body mass extremes or in patients with acute kidney failure. [email or web address] Blood specimen (specimen) 10/10/2017 8:05 PM EDT 10/10/2017 8:11 PM EDT Narrative Resulting Agency Comment Spec In Lab Dillon Koch MD CHEMISTRY ORDERABLES [facility] [place] [address] * (ABNORMAL) Basic Metabolic Panel (non-fasting) (10/10/2017 11:24 AM EDT) Glucose 96 65 - 199 mg/dL [facility] Comment:Diabetes: >=200 mg/d L plus symptoms Blood Urea Nitrogen 20 10 - 20 mg/dL [facility] Creatinine 1.01 0.80 - 1.50 mg/dL [facility] Sodium 150(H) 135 - 145 mmol/L [facility] Potassium 3.7 3.5 - 5.0 mmol/L [facility] Comment: Please note: ??Patients with WBC >100,000 may have falsely elevated Potassium levels. ??For accurate Potassium quantification in these patients send serum separator tube (gold top) for subsequent determinations. ??Contact the Clinical Chemistry Laboratory if there are any questions. Chloride 111(H) 98 - 107 mmol/L [facility] Carbon Dioxide 23 22 - 31 mmol/L [facility] Anion Gap 16(H) 5 - 15 mmol/L [facility] Calcium 9.8 8.5 - 10.5 mg/dL [facility] Est Glomerular Filtration Rate >60 >=60 [facility] Comment: The reported eGFR should be multiplied by 1.2 for patients. The MDRD is not an appropriate measure of renal function for patients with body mass extremes or in patients with acute kidney failure. [email or web address] Blood specimen (specimen) 10/10/2017 11:24 AM EDT 10/10/2017 11:45 AM EDT Narrative Resulting Agency Comment Spec In Lab Dillon Koch MD CHEMISTRY ORDERABLES [facility] [place] [address] * (ABNORMAL) Basic Metabolic Panel (non-fasting) (10/10/2017 3:14 AM EDT) Glucose 98 65 - 199 mg/dL [facility] Comment:Diabetes: >=200 mg/d L plus symptoms Blood Urea Nitrogen 20 10 - 20 mg/dL [facility] LABORATORY Creatinine 0.91 0.80 - 1.50 mg/dL [facility] Sodium 154(H) 135 - 145 mmol/L [facility] Comment:result rechecked-jt Potassium 4.2 3.5 - 5.0 mmol/L [facility] Comment: Please note: ??Patients with WBC >100,000 may have falsely elevated Potassium levels. ??For accurate Potassium quantification in these patients send serum separator tube (gold top) for subsequent determinations. ??Contact the Clinical Chemistry Laboratory if there are any questions. Chloride 114(H) 98 - 107 mmol/L [facility] Comment:result rechecked-jt Carbon Dioxide 23 22 - 31 mmol/L [facility] Anion Gap 17(H) 5 - 15 mmol/L [facility] Calcium 9.5 8.5 - 10.5 mg/dL [facility] Est Glomerular Filtration Rate >60 >=60 [facility] Comment: The reported eGFR should be multiplied by 1.2 for patients. The MDRD is not an appropriate measure of renal function for patients with body mass extremes or in patients with acute kidney failure. [email or web address] [email or web address] Blood specimen (specimen) 10/10/2017 3:14 AM EDT 10/10/2017 3:23 AM EDT Narrative Resulting Agency Comment Spec In Lab Jevon Rosales MD CHEMISTRY ORDERABLES [facility] [place] [address] * XR Pelvis (Generic) (10/09/2017 4:52 PM [...] EDT) Glucose 91 65 - 199 mg/dL [facility] Comment:Diabetes: >=200 mg/d L plus symptoms Blood Urea Nitrogen 13 10 - 20 mg/dL [facility] Creatinine 0.82 0.80 - 1.50 mg/dL [facility] Sodium 135 135 - 145 mmol/L [facility] Potassium 3.6 3.5 - 5.0 mmol/L [facility] Comment: Please note: ??Patients with WBC >100,000 may have falsely elevated Potassium levels. ??For accurate Potassium quantification in these patients send serum separator tube (gold top) for subsequent determinations. ??Contact the Clinical Chemistry Laboratory if there are any questions. Chloride 97(L) 98 - 107 mmol/L [facility] Carbon Dioxide 22 22 - 31 mmol/L [facility] Anion Gap 16(H) 5 - 15 mmol/L [facility] Calcium 9.0 8.5 - 10.5 mg/dL [facility] Est Glomerular Filtration Rate >60 >=60 [facility] Comment: The reported eGFR should be multiplied by 1.2 for patients. The MDRD is not an appropriate measure of renal function for patients with body mass extremes or in patients with acute kidney failure. http://[employer]/DHnkdep [email or web address]/DHMCnkf Blood specimen (specimen) 10/08/2017 4:15 AM EDT 10/08/2017 4:46 AM EDT Narrative Resulting Agency Comment Spec In Lab Jevon Rosales MD CHEMISTRY ORDERABLES [facility] [place] [address] * (ABNORMAL) Basic Metabolic Panel (non-fasting) (10/07/2017 4:15 AM EDT) Glucose 95 65 - 199 mg/dL [facility] Comment:Diabetes: >=200 mg/d L plus symptoms Blood Urea Nitrogen 12 10 - 20 mg/dL [facility] Creatinine 0.80 0.80 - 1.50 mg/dL [facility] Sodium 137 135 - 145 mmol/L [facility] Potassium 3.9 3.5 - 5.0 mmol/L [facility] Comment: Please note: ??Patients with WBC >100,000 may have falsely elevated Potassium levels. ??For accurate Potassium quantification in these patients send serum separator tube (gold top) for subsequent determinations. ??Contact the Clinical Chemistry Laboratory if there are any questions. Chloride 99 98 - 107 mmol/L [facility] Carbon Dioxide 22 22 - 31 mmol/L [facility] Anion Gap 16(H) 5 - 15 mmol/L [facility] Calcium 9.0 8.5 - 10.5 mg/dL [facility] Est Glomerular Filtration Rate >60 >=60 [facility] Comment: The reported eGFR should be multiplied by 1.2 for patients. The MDRD is not an appropriate measure of renal function for patients with body mass extremes or in patients with acute kidney failure. [email or web address]/DHnkdep [email or web address] Blood specimen (specimen) 10/07/2017 4:15 AM EDT 10/07/2017 4:24 AM EDT Narrative Resulting Agency Comment Spec In Lab Jevon Rosales MD CHEMISTRY ORDERABLES [facility] [place] [address] * Lavender Tube HOLD (10/06/2017 4:05 AM EDT) Lavender Hold Sample in lab. [facility] Blood specimen (specimen) Venous Draw / Unknown 10/06/2017 4:05 AM EDT 10/06/2017 4:31 AM EDT Reba Linton MD HEMATOLOGY ORDER LYNDSEY [facility] [place] [address] * Basic Metabolic Panel (non-fasting) (10/06/2017 4:05 AM EDT) Glucose 103 65 - 199 mg/dL [facility] Comment:Diabetes: >=200 mg/d L plus symptoms Blood Urea Nitrogen 18 10 - 20 mg/dL [facility] Creatinine 0.88 0.80 - 1.50 mg/dL [facility] Sodium 145 135 - 145 mmol/L [facility] Potassium 3.7 3.5 - 5.0 mmol/L [facility] Comment: Please note: ??Patients with WBC >100,000 may have falsely elevated Potassium levels. ??For accurate Potassium quantification in these patients send serum separator tube (gold top) for subsequent determinations. ??Contact the Clinical Chemistry Laboratory if there are any questions. Chloride 104 98 - 107 mmol/L [facility] Carbon Dioxide 27 22 - 31 mmol/L [facility] Anion Gap 14 5 - 15 mmol/L [facility] Calcium 9.0 8.5 - 10.5 mg/dL [facility] Est Glomerular Filtration Rate >60 >=60 [facility] Comment: The reported eGFR should be multiplied by 1.2 for patients. The MDRD is not an appropriate measure of renal function for patients with body mass extremes or in patients with acute kidney failure. [email or web address]/DHnkdep [email or web address] Blood specimen (specimen) 10/06/2017 4:05 AM EDT 10/06/2017 4:31 AM EDT Narrative Resulting Agency Comment Spec In Lab Reba Linton MD CHEMISTRY ORDERA BLES Performing Organization Address [facility]/ZIP Co de Phone Number [facility] [place] [address] * (ABNORMAL) Basic Metabolic Panel (non-fasting) (10/05/2017 2:35 PM EDT) Glucose 86 65 - 199 mg/dL [facility] Comment:Diabetes: >=200 mg/d L plus symptoms Blood Urea Nitrogen 18 10 - 20 mg/dL [facility] Creatinine 1.03 0.80 - 1.50 mg/dL [facility] Sodium 148(H) 135 - 145 mmol/L [facility] Potassium 4.0 3.5 - 5.0 mmol/L [facility] Comment: Please note: ??Patients with WBC >100,000 may have falsely elevated Potassium levels. ??For accurate Potassium quantification in these patients send serum separator tube (gold top) for subsequent determinations. ??Contact the Clinical Chemistry Laboratory if there are any questions. Chloride 105 98 - 107 mmol/L [facility] Carbon Dioxide 28 22 - 31 mmol/L [facility] Anion Gap 15 5 - 15 mmol/L [facility] Calcium 9.3 8.5 - 10.5 mg/dL [facility] Est Glomerular Filtration Rate >60 >=60 [facility] Comment: The reported eGFR should be multiplied by 1.2 for patients. The MDRD is not an appropriate measure of renal function for patients with body mass extremes or in patients with acute kidney failure. [email or web address] [email or web address] Blood specimen (specimen) 10/05/2017 2:35 PM EDT 10/05/2017 2:46 PM EDT Narrative Resulting Agency Comment Spec In Lab Reba Linton MD CHEMISTRY ORDERA BLES Performing Organization Address [facility]/ZIP Co de Phone [place] [address] * Differential, Automated (10/05/2017 5:55 AM EDT) Pathologist [facility] Neutrophil % 42.4 % [facility] Neutrophil Absolute 2.71 1.70 - 6.10 x10(3)/[facility] LABORATORY Lymph % 38.2 % [facility] Lymphocytes Abs 2.4 0.9 - 3.2 x10(3)/[facility] Monocyte % 12.5 % [facility] Monocyte Abs 0.8 0.3 - 0.9 x10(3)/[facility] Eos % 5.5 % [facility] Eosinophils Abs 0.4 0.0 - 0.4 x10(3[place] [place] Basophil % 0.8 % [facility] Baso Absolute 0.0 0.0 - 0.1 x10(3[place] [place] Immature Gran % 0.60 % [facility] Comment: Immature granulocytes(IG's)percentage and absolute count will include metamyelocytes, myelocytes, and promyelocytes. Blood smears from CBCs yielding IG's will be scanned manually for concordance. If this scan disagrees with the automated IG or if promyelocytes are noted, a manual differential will be performed. Immature Gran Absolute 0.04 0.00 - 0.04 x10(3)/[facility] Blood specimen (specimen) 10/05/2017 5:55 AM EDT 10/05/2017 6:19 AM EDT Narrative Resulting Agency Comment Spec In Lab Reba Linton MD HEMATOLOGY [place] [address] * (ABNORMAL) Hemogram (10/05/2017 5:55 AM EDT) Pathologist [facility] White Blood Cell 6.4 4.0 - 9.5 x10(3)/mc L [facility] Red Blood Cell 4.47(L) 4.58 - 5.54 x10(6)/mc L [facility] Hemoglobin 11.1(L) 13.7 - 16.5 gm/dL [facility] Hematocrit 38.6(L) 40.5 - 48.5 % [facility] Mean Cell Volume 86.4 82.9 - 93.1 fL [facility] Mean Cell Hemoglobin 24.8(L) 27.5 - 32.1 pg [facility] Mean Cell Hemoglobin Concentration 28.8(L) 32.0 - 35.7 gm/dL [facility] Platelet 281 145 - 357 x10(3)/[facility] LABORAT[facility] RDW Standard Deviation 49.7(H) 36.0 - 45.0 [facility] RDW coefficient of variation 15.7(H) 11.4 - 13.8 % [facility] Mean Platelet Volume 9.4 7.6 - 12.9 [facility] NRBC% auto 0.0 % [facility] NRBC Absolute 0.000 0.000 - 0.000 x10(3)/[facility] Blood specimen (specimen) 10/05/2017 5:55 AM EDT 10/05/2017 6:19 AM EDT Narrative Resulting Agency Comment Spec In Lab Reba Linton MD HEMATOLOGY ORDER LYNDSEY [facility] [place] [address] * (ABNORMAL) Basic Metabolic Panel (non-fasting) (10/05/2017 3:51 AM EDT) Glucose 105 65 - 199 mg/dL [facility] Comment:Diabetes: >=200 mg/d L plus symptoms Blood Urea Nitrogen 19 10 - 20 mg/dL [facility] Creatinine 1.07 0.80 - 1.50 mg/dL [facility] Sodium 148(H) 135 - 145 mmol/L [facility] Potassium 3.9 3.5 - 5.0 mmol/L [facility] Comment: Please note: ??Patients with WBC >100,000 may have falsely elevated Potassium levels. ??For accurate Potassium quantification in these patients send serum separator tube (gold top) for subsequent determinations. ??Contact the Clinical Chemistry Laboratory if there are any questions. Chloride 107 98 - 107 mmol/L [facility] Carbon Dioxide 27 22 - 31 mmol/L [facility] Anion Gap 14 5 - 15 mmol/L [facility] Calcium 9.4 8.5 - 10.5 mg/dL [facility] Est Glomerular Filtration Rate >60 >=60 [facility] Comment: The reported eGFR should be multiplied by 1.2 for patients. The MDRD is not an appropriate measure of renal function for patients with body mass extremes or in patients with acute kidney failure. [email or web address] [email or web address] Blood specimen (specimen) 10/05/2017 3:51 AM EDT 10/05/2017 4:30 AM EDT Narrative Resulting Agency Comment Spec In Lab Reba Linton MD CHEMISTRY ORDERA BLES [facility] [place] [address] * (ABNORMAL) Basic Metabolic Panel (non-fasting) (10/04/2017 7:09 PM EDT) Glucose 120 65 - 199 mg/dL [facility] Comment:Diabetes: >=200 mg/d L plus symptoms Blood Urea Nitrogen 19 10 - 20 mg/dL [facility] Creatinine 1.16 0.80 - 1.50 mg/dL [facility] Sodium 147(H) 135 - 145 mmol/L [facility] Potassium 3.7 3.5 - 5.0 mmol/L [facility] Comment: Please note: ??Patients with WBC >100,000 may have falsely elevated Potassium levels. ??For accurate Potassium quantification in these patients send serum separator tube (gold top) for subsequent determinations. ??Contact the Clinical Chemistry Laboratory if there are any questions. Chloride 104 98 - 107 mmol/L [facility] Carbon Dioxide 29 22 - 31 mmol/L [facility] Anion Gap 14 5 - 15 mmol/L [facility] Calcium 9.4 8.5 - 10.5 mg/dL [facility] Est Glomerular Filtration Rate >60 >=60 [facility] Comment: The reported eGFR should be multiplied by 1.2 for patients. The MDRD is not an appropriate measure of renal function for patients with body mass extremes or in patients with acute kidney failure. [email or web address] [email or web address] Blood specimen (specimen) 10/04/2017 7:09 PM EDT 10/04/2017 7:13 PM EDT Narrative Resulting Agency Comment Spec In Lab Kemi Camp APRN CHEMISTRY ORDERAB LES [facility] [place] [address] * (ABNORMAL) Basic Metabolic Panel (non-fasting) (10/04/2017 12:48 PM EDT) Glucose 92 65 - 199 mg/dL [facility] Comment:Diabetes: >=200 mg/d L plus symptoms Blood Urea Nitrogen 20 10 - 20 mg/dL [facility] Creatinine 0.97 0.80 - 1.50 mg/dL [facility] Sodium 147(H) 135 - 145 mmol/L [facility] Potassium 3.8 3.5 - 5.0 mmol/L [facility] Comment: Please note: ??Patients with WBC >100,000 may have falsely elevated Potassium levels. ??For accurate Potassium quantification in these patients send serum separator tube (gold top) for subsequent determinations. ??Contact the Clinical Chemistry Laboratory if there are any questions. Chloride 103 98 - 107 mmol/L [facility] Carbon Dioxide 29 22 - 31 mmol/L [facility] Anion Gap 15 5 - 15 mmol/L [facility] Calcium 9.5 8.5 - 10.5 mg/dL [facility] Est Glomerular Filtration Rate >60 >=60 [facility] Comment: The reported eGFR should be multiplied by 1.2 for patients. The MDRD is not an appropriate measure of renal function for patients with body mass extremes or in patients with acute kidney failure. [email or web address] [email or web address] Blood specimen (specimen) 10/04/2017 12:48 PM EDT 10/04/2017 1:00 PM EDT Narrative Resulting Agency Comment Spec In Lab Kemi Camp APRN CHEMISTRY ORDERAB LES [facility] [place] [address] * (ABNORMAL) Basic Metabolic Panel (non-fasting) (10/04/2017 5:01 AM EDT) Glucose 94 65 - 199 mg/dL [facility] Comment:Diabetes: >=200 mg/d L plus symptoms Blood Urea Nitrogen 20 10 - 20 mg/dL [facility] Creatinine 1.11 0.80 - 1.50 mg/dL [facility] Sodium 146(H) 135 - 145 mmol/L [facility] Potassium 3.8 3.5 - 5.0 mmol/L [facility] Comment: Please note: ??Patients with WBC >100,000 may have falsely elevated Potassium levels. ??For accurate Potassium quantification in these patients send serum separator tube (gold top) for subsequent determinations. ??Contact the Clinical Chemistry Laboratory if there are any questions. Chloride 103 98 - 107 mmol/L [facility] Carbon Dioxide 26 22 - 31 mmol/L [facility] Anion Gap 17(H) 5 - 15 mmol/L [facility] Calcium 9.5 8.5 - 10.5 mg/dL [facility] Est Glomerular Filtration Rate >60 >=60 [facility] Comment: The reported eGFR should be multiplied by 1.2 for patients. The MDRD is not an appropriate measure of renal function for patients with body mass extremes or in patients with acute kidney failure. [email or web address] [email or web address] Blood specimen (specimen) 10/04/2017 5:01 AM EDT 10/04/2017 5:44 AM EDT Narrative Resulting Agency Comment Spec In Lab Kemi Camp APRN CHEMISTRY ORDERAB LES Performing Organization Address City/State/[facility] Co de Phone Number [facility] [place] [address] * (ABNORMAL) Basic Metabolic Panel (non-fasting) (10/03/2017 7:48 PM EDT) Glucose 86 65 - 199 mg/dL [facility] Comment:Diabetes: >=200 mg/d L plus symptoms Blood Urea Nitrogen 21(H) 10 - 20 mg/dL [facility] Creatinine 1.03 0.80 - 1.50 mg/dL [facility] Sodium 148(H) 135 - 145 mmol/L [facility] Potassium 4.3 3.5 - 5.0 mmol/L [facility] Comment: Please note: ??Patients with WBC >100,000 may have falsely elevated Potassium levels. ??For accurate Potassium quantification in these patients send serum separator tube (gold top) for subsequent determinations. ??Contact the Clinical Chemistry Laboratory if there are any questions. Chloride 104 98 - 107 mmol/L [facility] Carbon Dioxide 29 22 - 31 mmol/L [facility] Anion Gap 15 5 - 15 mmol/L [facility] Calcium 9.6 8.5 - 10.5 mg/dL [facility] Est Glomerular Filtration Rate >60 >=60 [facility] Comment: The reported eGFR should be multiplied by 1.2 for patients. The MDRD is not an appropriate measure of renal function for patients with body mass extremes or in patients with acute kidney failure. [email or web address] [email or web address] Blood specimen (specimen) 10/03/2017 7:48 PM EDT 10/03/2017 7:52 PM EDT Narrative Resulting Agency Comment Spec In Lab Kemi Camp APRN CHEMISTRY ORDERAB LES [facility] [place] [address] * (ABNORMAL) Basic Metabolic Panel (non-fasting) (10/03/2017 11:36 AM EDT) Glucose 108 65 - 199 mg/dL [facility] Comment:Diabetes: >=200 mg/d L plus symptoms Blood Urea Nitrogen 15 10 - 20 mg/dL [facility] Creatinine 1.04 0.80 - 1.50 mg/dL [facility] Sodium 146(H) 135 - 145 mmol/L [facility] Potassium 3.7 3.5 - 5.0 mmol/L [facility] Comment: Please note: ??Patients with WBC >100,000 may have falsely elevated Potassium levels. ??For accurate Potassium quantification in these patients send serum separator tube (gold top) for subsequent determinations. ??Contact the Clinical Chemistry Laboratory if there are any questions. Chloride 102 98 - 107 mmol/L [facility] Carbon Dioxide 28 22 - 31 mmol/L [facility] Anion Gap 16(H) 5 - 15 mmol/L [facility] Calcium 9.9 8.5 - 10.5 mg/dL [facility] Est Glomerular Filtration Rate >60 >=60 [facility] Comment: The reported eGFR should be multiplied by 1.2 for patients. The MDRD is not an appropriate measure of renal function for patients with body mass extremes or in patients with acute kidney failure. [email or web address] [email or web address] Blood specimen (specimen) 10/03/2017 11:36 AM EDT 10/03/2017 12:02 PM EDT Narrative Resulting Agency Comment Spec In Lab Kemi Camp APRN CHEMISTRY ORDERAB LES [facility] [place] [address] * (ABNORMAL) Basic Metabolic Panel (non-fasting) (10/03/2017 4:15 AM EDT) Glucose 96 65 - 199 mg/dL [facility] Comment:Diabetes: >=200 mg/d L plus symptoms Blood Urea Nitrogen 15 10 - 20 mg/dL [facility] Creatinine 0.86 0.80 - 1.50 mg/dL [facility] Sodium 146(H) 135 - 145 mmol/L [facility] Potassium 3.9 3.5 - 5.0 mmol/L [facility] Comment: Please note: ??Patients with WBC >100,000 may have falsely elevated Potassium levels. ??For accurate Potassium quantification in these patients send serum separator tube (gold top) for subsequent determinations. ??Contact the Clinical Chemistry Laboratory if there are any questions. Chloride 106 98 - 107 mmol/L [facility] Carbon Dioxide 26 22 - 31 mmol/L [facility] Anion Gap 14 5 - 15 mmol/L [facility] Calcium 9.5 8.5 - 10.5 mg/dL [facility] Est Glomerular Filtration Rate >60 >=60 [facility] Comment: The reported eGFR should be multiplied by 1.2 for patients. The MDRD is not an appropriate measure of renal function for patients with body mass extremes or in patients with acute kidney failure. [email or web address] [email or web address] Blood specimen (specimen) 10/03/2017 4:15 AM EDT 10/03/2017 4:25 AM EDT Narrative Resulting Agency Comment Spec In Lab Kemi Camp APRN CHEMISTRY ORDERAB LES [facility] [place] [address] * (ABNORMAL) Basic Metabolic Panel (non-fasting) (10/02/2017 7:12 PM EDT) Glucose 114 65 - 199 mg/dL [facility] Comment:Diabetes: >=200 mg/d L plus symptoms Blood Urea Nitrogen 15 10 - 20 mg/dL [facility] Creatinine 0.95 0.80 - 1.50 mg/dL [facility] Sodium 146(H) 135 - 145 mmol/L [facility] Potassium 4.0 3.5 - 5.0 mmol/L [facility] Comment: Please note: ??Patients with WBC >100,000 may have falsely elevated Potassium levels. ??For accurate Potassium quantification in these patients send serum separator tube (gold top) for subsequent determinations. ??Contact the Clinical Chemistry Laboratory if there are any questions. Chloride 105 98 - 107 mmol/L [facility] Carbon Dioxide 24 22 - 31 mmol/L [facility] Anion Gap 17(H) 5 - 15 mmol/L [facility] Calcium 9.3 8.5 - 10.5 mg/dL [facility] Est Glomerular Filtration Rate >60 >=60 [facility] Comment: The reported eGFR should be multiplied by 1.2 for patients. The MDRD is not an appropriate measure of renal function for patients with body mass extremes or in patients with acute kidney failure. [email or web address] [email or web address] Blood specimen (specimen) 10/02/2017 7:12 PM EDT 10/02/2017 7:24 PM EDT Narrative Resulting Agency Comment Spec In Lab Kemi Camp MAX CHEMISTRY ORDERAB LES [facility] [place] [address] * (ABNORMAL) Basic Metabolic Panel (non-fasting) (10/02/2017 12:14 PM EDT) Glucose 84 65 - 199 mg/dL [facility] Comment:Diabetes: >=200 mg/d L plus symptoms Blood Urea Nitrogen 13 10 - 20 mg/dL [facility] Creatinine 0.84 0.80 - 1.50 mg/dL [facility] Sodium 146(H) 135 - 145 mmol/L [facility] Potassium 4.3 3.5 - 5.0 mmol/L [facility] Comment: Please note: ??Patients with WBC >100,000 may have falsely elevated Potassium levels. ??For accurate Potassium quantification in these patients send serum separator tube (gold top) for subsequent determinations. ??Contact the Clinical Chemistry Laboratory if there are any questions. Chloride 105 98 - 107 mmol/L [facility] Carbon Dioxide 25 22 - 31 mmol/L [facility] Anion Gap 16(H) 5 - 15 mmol/L [facility] Calcium 9.5 8.5 - 10.5 mg/dL [facility] Est Glomerular Filtration Rate >60 >=60 [facility] Comment: The reported eGFR should be multiplied by 1.2 for patients. The MDRD is not an appropriate measure of renal function for patients with body mass extremes or in patients with acute kidney failure. [email or web address] [email or web address] Blood specimen (specimen) 10/02/2017 12:14 PM EDT 10/02/2017 12:24 PM EDT Narrative Resulting Agency Comment Spec In Lab Kemi Emerald Marya SANTANA CHEMISTRY ORDERAB LES Performing Organization Address City/[facility]/ZIP Co de Phone Number [facility] [place] [address] * Basic Metabolic Panel (non-fasting) (10/02/2017 5:45 AM EDT) Glucose 83 65 - 199 mg/dL [facility] Comment:Diabetes: >=200 mg/d L plus symptoms Blood Urea Nitrogen 15 10 - 20 mg/dL [facility] Creatinine 0.85 0.80 - 1.50 mg/dL [facility] Sodium 143 135 - 145 mmol/L [facility] Potassium 4.0 3.5 - 5.0 mmol/L [facility] Comment: Please note: ??Patients with WBC >100,000 may have falsely elevated Potassium levels. ??For accurate Potassium quantification in these patients send serum separator tube (gold top) for subsequent determinations. ??Contact the Clinical Chemistry Laboratory if there are any questions. Chloride 103 98 - 107 mmol/L [facility] Carbon Dioxide 26 22 - 31 mmol/L [facility] Anion Gap 14 5 - 15 mmol/L [facility] Calcium 9.4 8.5 - 10.5 mg/dL [facility] Est Glomerular Filtration Rate >60 >=60 [facility] Comment: The reported eGFR should be multiplied by 1.2 for patients. The MDRD is not an appropriate measure of renal function for patients with body mass extremes or in patients with acute kidney failure. [email or web address] [email or web address] Blood specimen (specimen) 10/02/2017 5:45 AM EDT 10/02/2017 6:07 AM EDT Narrative Resulting Agency Comment Spec In Lab Kemi Camp APRN CHEMISTRY ORDERAB LES Performing Organization Address City/[facility]/ZIP Co de Phone Number [facility] [place] [address] * Basic Metabolic Panel (non-fasting) (10/01/2017 8:22 PM EDT) Glucose 105 65 - 199 mg/dL [facility] Comment:Diabetes: >=200 mg/d L plus symptoms Blood Urea Nitrogen 14 10 - 20 mg/dL [facility] Creatinine 0.95 0.80 - 1.50 mg/dL [facility] Sodium 139 135 - 145 mmol/L [facility] Potassium 4.3 3.5 - 5.0 mmol/L [facility] Comment: Please note: ??Patients with WBC >100,000 may have falsely elevated Potassium levels. ??For accurate Potassium quantification in these patients send serum separator tube (gold top) for subsequent determinations. ??Contact the Clinical Chemistry Laboratory if there are any questions. Chloride 100 98 - 107 mmol/L [facility] Carbon Dioxide 26 22 - 31 mmol/L [facility] Anion Gap 13 5 - 15 mmol/L [facility] Calcium 9.1 8.5 - 10.5 mg/dL [facility] Est Glomerular Filtration Rate >60 >=60 [facility] Comment: The reported eGFR should be multiplied by 1.2 for patients. The MDRD is not an appropriate measure of renal function for patients with body mass extremes or in patients with acute kidney failure. [email or web address] [email or web address] Blood specimen (specimen) 10/01/2017 8:22 PM EDT 10/01/2017 8:35 PM EDT Narrative Resulting Agency Comment Spec In Lab Kemi Camp APRN CHEMISTRY ORDERAB LES Performing Organization Address City/[facility]/ZIP Co de Phone Number [facility] [place] [address] * (ABNORMAL) Basic Metabolic Panel (non-fasting) (10/01/2017 12:08 PM EDT) Glucose 75 65 - 199 mg/dL [facility] Comment:Diabetes: >=200 mg/d L plus symptoms Blood Urea Nitrogen 12 10 - 20 mg/dL [facility] Creatinine 0.78(L) 0.80 - 1.50 mg/dL [facility] Sodium 137 135 - 145 mmol/L [facility] Potassium 4.3 3.5 - 5.0 mmol/L [facility] Comment: Please note: ??Patients with WBC >100,000 may have falsely elevated Potassium levels. ??For accurate Potassium quantification in these patients send serum separator tube (gold top) for subsequent determinations. ??Contact the Clinical Chemistry Laboratory if there are any questions. Chloride 97(L) 98 - 107 mmol/L [facility] Carbon Dioxide 24 22 - 31 mmol/L [facility] Anion Gap 16(H) 5 - 15 mmol/L [facility] Calcium 9.3 8.5 - 10.5 mg/dL [facility] Est Glomerular Filtration Rate >60 >=60 [facility] Comment: The reported eGFR should be multiplied by 1.2 for patients. The MDRD is not an appropriate measure of renal function for patients with body mass extremes or in patients with acute kidney failure. [email or web address] [email or web address] Blood specimen (specimen) 10/01/2017 12:08 PM EDT 10/01/2017 12:14 PM EDT Narrative Resulting Agency Comment Spec In Lab Kemi Camp APRN CHEMISTRY ORDERAB LES [facility] [place] [address] * (ABNORMAL) Basic Metabolic Panel (non-fasting) (10/01/2017 3:41 AM EDT) Glucose 99 65 - 199 mg/dL [facility] Comment:Diabetes: >=200 mg/d L plus symptoms Blood Urea Nitrogen 13 10 - 20 mg/dL [facility] Creatinine 0.70(L) 0.80 - 1.50 mg/dL [facility] Sodium 130(L) 135 - 145 mmol/L [facility] Potassium 3.8 3.5 - 5.0 mmol/L [facility] Comment: Please note: ??Patients with WBC >100,000 may have falsely elevated Potassium levels. ??For accurate Potassium quantification in these patients send serum separator tube (gold top) for subsequent determinations. ??Contact the Clinical Chemistry Laboratory if there are any questions. Chloride 93(L) 98 - 107 mmol/L [facility] Carbon Dioxide 24 22 - 31 mmol/L [facility] Anion Gap 13 5 - 15 mmol/L [facility] Calcium 8.6 8.5 - 10.5 mg/dL [facility] Est Glomerular Filtration Rate >60 >=60 [facility] Comment: The reported eGFR should be multiplied by 1.2 for patients. The MDRD is not an appropriate measure of renal function for patients with body mass extremes or in patients with acute kidney failure. [email or web address] [email or web address] Blood specimen (specimen) 10/01/2017 3:41 AM EDT 10/01/2017 3:53 AM EDT Narrative Resulting Agency Comment Spec In Lab Kemi Camp APRN CHEMISTRY ORDERAB LES [facility] [place] [address] * (ABNORMAL) Basic Metabolic Panel (non-fasting) (09/30/2017 9:24 PM EDT) Glucose 106 65 - 199 mg/dL [facility] Comment:Diabetes: >=200 mg/d L plus symptoms Blood Urea Nitrogen 16 10 - 20 mg/dL [facility] Creatinine 0.80 0.80 - 1.50 mg/dL [facility] Sodium 131(L) 135 - 145 mmol/L [facility] Potassium 4.0 3.5 - 5.0 mmol/L [facility] Comment: Please note: ??Patients with WBC >100,000 may have falsely elevated Potassium levels. ??For accurate Potassium quantification in these patients send serum separator tube (gold top) for subsequent determinations. ??Contact the Clinical Chemistry Laboratory if there are any questions. Chloride 91(L) 98 - 107 mmol/L [facility] Carbon Dioxide 27 22 - 31 mmol/L [facility] Anion Gap 13 5 - 15 mmol/L [facility] Calcium 8.6 8.5 - 10.5 mg/dL [facility] Est Glomerular Filtration Rate >60 >=60 [facility] Comment: The reported eGFR should be multiplied by 1.2 for patients. The MDRD is not an appropriate measure of renal function for patients with body mass extremes or in patients with acute kidney failure. [email or web address] [email or web address] Blood specimen (specimen) 09/30/2017 9:24 PM EDT 09/30/2017 9:34 PM EDT Narrative Resulting Agency Comment Spec In Lab Kemi Camp APRN CHEMISTRY ORDERAB LES [facility] [place] [address] * (ABNORMAL) Basic Metabolic Panel (non-fasting) (09/30/2017 12:42 PM EDT) Glucose 74 65 - 199 mg/dL [facility] Comment:Diabetes: >=200 mg/d L plus symptoms Blood Urea Nitrogen 18 10 - 20 mg/dL [facility] Creatinine 0.82 0.80 - 1.50 mg/dL [facility] Sodium 133(L) 135 - 145 mmol/L [facility] Potassium 3.6 3.5 - 5.0 mmol/L [facility] Comment: Please note: ??Patients with WBC >100,000 may have falsely elevated Potassium levels. ??For accurate Potassium quantification in these patients send serum separator tube (gold top) for subsequent determinations. ??Contact the Clinical Chemistry Laboratory if there are any questions. Chloride 94(L) 98 - 107 mmol/L [facility] Carbon Dioxide 27 22 - 31 mmol/L [facility] Anion Gap 12 5 - 15 mmol/L [facility] Calcium 8.6 8.5 - 10.5 mg/dL [facility] Est Glomerular Filtration Rate >60 >=60 [facility] Comment: The reported eGFR should be multiplied by 1.2 for patients. The MDRD is not an appropriate measure of renal function for patients with body mass extremes or in patients with acute kidney failure. [email or web address] Blood specimen (specimen) 09/30/2017 12:42 PM EDT 09/30/2017 12:53 PM EDT Narrative Resulting Agency Comment Spec In Lab Reba Linton MD CHEMISTRY ORDERA [facility] [place] [address] * (ABNORMAL) Basic Metabolic Panel (non-fasting) (09/30/2017 6:09 AM EDT) Glucose 85 65 - 199 mg/dL [facility] Comment:Diabetes: >=200 mg/d L plus symptoms Blood Urea Nitrogen 19 10 - 20 mg/dL [facility] Creatinine 0.78(L) 0.80 - 1.50 mg/dL [facility] Sodium 133(L) 135 - 145 mmol/L [facility] Potassium 3.9 3.5 - 5.0 mmol/L [facility] Comment: Please note: ??Patients with WBC >100,000 may have falsely elevated Potassium levels. ??For accurate Potassium quantification in these patients send serum separator tube (gold top) for subsequent determinations. ??Contact the Clinical Chemistry Laboratory if there are any questions. Chloride 94(L) 98 - 107 mmol/L [facility] Carbon Dioxide 27 22 - 31 mmol/L [facility] Anion Gap 12 5 - 15 mmol/L [facility] Calcium 8.8 8.5 - 10.5 mg/dL [facility] Est Glomerular Filtration Rate >60 >=60 [facility] Comment: The reported eGFR should be multiplied by 1.2 for patients. The MDRD is not an appropriate measure of renal function for patients with body mass extremes or in patients with acute kidney failure. [email or web address] Blood specimen (specimen) 09/30/2017 6:09 AM EDT 09/30/2017 6:13 AM EDT Narrative Resulting Agency Comment Spec In Lab Reba Linton MD CHEMISTRY ORDERA [facility] [place] [address] * (ABNORMAL) Basic Metabolic Panel (non-fasting) (09/29/2017 6:36 PM EDT) Glucose 94 65 - 199 mg/dL [facility] Comment:Diabetes: >=200 mg/d L plus symptoms Blood Urea Nitrogen 22(H) 10 - 20 mg/dL [facility] Creatinine 0.73(L) 0.80 - 1.50 mg/dL [facility] Sodium 136 135 - 145 mmol/L [facility] Potassium 3.9 3.5 - 5.0 mmol/L [facility] Comment: Please note: ??Patients with WBC >100,000 may have falsely elevated Potassium levels. ??For accurate Potassium quantification in these patients send serum separator tube (gold top) for subsequent determinations. ??Contact the Clinical Chemistry Laboratory if there are any questions. Chloride 96(L) 98 - 107 mmol/L [facility] Carbon Dioxide 26 22 - 31 mmol/L [facility] Anion Gap 14 5 - 15 mmol/L [facility] Calcium 8.6 8.5 - 10.5 mg/dL [facility] Est Glomerular Filtration Rate >60 >=60 [facility] Comment: The reported eGFR should be multiplied by 1.2 for patients. The MDRD is not an appropriate measure of renal function for patients with body mass extremes or in patients with acute kidney failure. [email or web address] Blood specimen (specimen) 09/29/2017 6:36 PM EDT 09/29/2017 6:41 PM EDT Narrative Resulting Agency Comment Spec In Lab Kemi Camp APRN CHEMISTRY ORDERAB LES [facility] [place] [address] * (ABNORMAL) Basic Metabolic Panel (non-fasting) (09/29/2017 10:51 AM EDT) Glucose 82 65 - 199 mg/dL [facility] Comment:Diabetes: >=200 mg/d L plus symptoms Blood Urea Nitrogen 22(H) 10 - 20 mg/dL [facility] Creatinine 0.82 0.80 - 1.50 mg/dL [facility] Sodium 140 135 - 145 mmol/L [facility] Potassium 3.7 3.5 - 5.0 mmol/L [facility] Comment: Please note: ??Patients with WBC >100,000 may have falsely elevated Potassium levels. ??For accurate Potassium quantification in these patients send serum separator tube (gold top) for subsequent determinations. ??Contact the Clinical Chemistry Laboratory if there are any questions. Chloride 99 98 - 107 mmol/L [facility] Carbon Dioxide 28 22 - 31 mmol/L [facility] Anion Gap 13 5 - 15 mmol/L [facility] Calcium 8.8 8.5 - 10.5 mg/dL [facility] Est Glomerular Filtration Rate >60 >=60 [facility] Comment: The reported eGFR should be multiplied by 1.2 for patients. The MDRD is not an appropriate measure of renal function for patients with body mass extremes or in patients with acute kidney failure. [email or web address] Blood specimen (specimen) 09/29/2017 10:51 AM EDT 09/29/2017 11:08 AM EDT Narrative Resulting Agency Comment Spec In Lab Kemi Camp APRN CHEMISTRY ORDERAB LES Performing Organization Address City/State/[facility] Co de Phone Number [facility] [place] [address] * (ABNORMAL) Basic Metabolic Panel (non-fasting) (09/29/2017 2:17 AM EDT) Glucose 84 65 - 199 mg/dL [facility] Comment:Diabetes: >=200 mg/d L plus symptoms Blood Urea Nitrogen 23(H) 10 - 20 mg/dL [facility] Creatinine 0.98 0.80 - 1.50 mg/dL [facility] Sodium 140 135 - 145 mmol/L [facility] Potassium 3.5 3.5 - 5.0 mmol/L [facility] Comment: Please note: ??Patients with WBC >100,000 may have falsely elevated Potassium levels. ??For accurate Potassium quantification in these patients send serum separator tube (gold top) for subsequent determinations. ??Contact the Clinical Chemistry Laboratory if there are any questions. Chloride 99 98 - 107 mmol/L [facility] Carbon Dioxide 29 22 - 31 mmol/L [facility] Anion Gap 12 5 - 15 mmol/L [facility] Calcium 8.9 8.5 - 10.5 mg/dL [facility] Est Glomerular Filtration Rate >60 >=60 [facility] Comment: The reported eGFR should be multiplied by 1.2 for patients. The MDRD is not an appropriate measure of renal function for patients with body mass extremes or in patients with acute kidney failure. [email or web address] Blood specimen (specimen) 09/29/2017 2:17 AM EDT 09/29/2017 2:21 AM EDT Narrative Resulting Agency Comment Spec In Lab Kemi Camp APRN CHEMISTRY ORDERAB LES [facility] [place] [address] * (ABNORMAL) Basic Metabolic Panel (non-fasting) (09/28/2017 2:56 PM EDT) Glucose 92 65 - 199 mg/dL [facility] Comment:Diabetes: >=200 mg/d L plus symptoms Blood Urea Nitrogen 23(H) 10 - 20 mg/dL [facility] Creatinine 0.88 0.80 - 1.50 mg/dL [facility] Sodium 146(H) 135 - 145 mmol/L [facility] Potassium 4.0 3.5 - 5.0 mmol/L [facility] Comment: Please note: ??Patients with WBC >100,000 may have falsely elevated Potassium levels. ??For accurate Potassium quantification in these patients send serum separator tube (gold top) for subsequent determinations. ??Contact the Clinical Chemistry Laboratory if there are any questions. Chloride 103 98 - 107 mmol/L [facility] Carbon Dioxide 27 22 - 31 mmol/L [facility] Anion Gap 16(H) 5 - 15 mmol/L [facility] Calcium 9.3 8.5 - 10.5 mg/dL [facility] Est Glomerular Filtration Rate >60 >=60 [facility] Comment: The reported eGFR should be multiplied by 1.2 for patients. The MDRD is not an appropriate measure of renal function for patients with body mass extremes or in patients with acute kidney failure. [email or web address] Blood specimen (specimen) 09/28/2017 2:56 PM EDT 09/28/2017 3:08 PM EDT Narrative Resulting Agency Comment Spec In Lab Reba Linton MD CHEMISTRY ORDERA BLES [facility] [place] [address] * (ABNORMAL) Basic Metabolic Panel (non-fasting) (09/28/2017 12:13 PM EDT) Glucose 78 65 - 199 mg/dL [facility] Comment:Diabetes: >=200 mg/d L plus symptoms Blood Urea Nitrogen 22(H) 10 - 20 mg/dL [facility] Creatinine 0.86 0.80 - 1.50 mg/dL [facility] Sodium 148(H) 135 - 145 mmol/L [facility] Potassium 3.9 3.5 - 5.0 mmol/L [facility] Comment: Please note: ??Patients with WBC >100,000 may have falsely elevated Potassium levels. ??For accurate Potassium quantification in these patients send serum separator tube (gold top) for subsequent determinations. ??Contact the Clinical Chemistry Laboratory if there are any questions. Chloride 106 98 - 107 mmol/L [facility] Carbon Dioxide 27 22 - 31 mmol/L [facility] Anion Gap 15 5 - 15 mmol/L [facility] Calcium 9.3 8.5 - 10.5 mg/dL [facility] Est Glomerular Filtration Rate >60 >=60 [facility] Comment: The reported eGFR should be multiplied by 1.2 for patients. The MDRD is not an appropriate measure of renal function for patients with body mass extremes or in patients with acute kidney failure. [email or web address] Blood specimen (specimen) 09/28/2017 12:13 PM EDT 09/28/2017 12:18 PM EDT Narrative Resulting Agency Comment Spec In Lab Reba Linton MD CHEMISTRY ORDERA BLES [facility] [place] [address] * (ABNORMAL) Basic Metabolic Panel (non-fasting) (09/28/2017 6:57 AM EDT) Glucose 86 65 - 199 mg/dL [facility] Comment:Diabetes: >=200 mg/d L plus symptoms Blood Urea Nitrogen 21(H) 10 - 20 mg/dL [facility] Creatinine 0.89 0.80 - 1.50 mg/dL [facility] Sodium 148(H) 135 - 145 mmol/L [facility] Potassium 4.0 3.5 - 5.0 mmol/L [facility] Comment: Please note: ??Patients with WBC >100,000 may have falsely elevated Potassium levels. ??For accurate Potassium quantification in these patients send serum separator tube (gold top) for subsequent determinations. ??Contact the Clinical Chemistry Laboratory if there are any questions. Chloride 107 98 - 107 mmol/L [facility] Carbon Dioxide 26 22 - 31 mmol/L [facility] Anion Gap 15 5 - 15 mmol/L [facility] Calcium 9.5 8.5 - 10.5 mg/dL [facility] Est Glomerular Filtration Rate >60 >=60 [facility] Comment: The reported eGFR should be multiplied by 1.2 for patients. The MDRD is not an appropriate measure of renal function for patients with body mass extremes or in patients with acute kidney failure. [email or web address] Blood specimen (specimen) 09/28/2017 6:57 AM EDT 09/28/2017 7:02 AM EDT Narrative Resulting Agency Comment Spec In Lab Reba Linton MD CHEMISTRY ORDERA BLES [facility] [place] [address] * (ABNORMAL) Basic Metabolic Panel (non-fasting) (09/27/2017 9:43 AM EDT) Glucose 108 65 - 199 mg/dL [facility] Comment:Diabetes: >=200 mg/d L plus symptoms Blood Urea Nitrogen 17 10 - 20 mg/dL [facility] Creatinine 1.00 0.80 - 1.50 mg/dL [facility] Sodium 147(H) 135 - 145 mmol/L [facility] Comment:result rechecked-MM Potassium 3.5 3.5 - 5.0 mmol/L [facility] Comment: Please note: ??Patients with WBC >100,000 may have falsely elevated Potassium levels. ??For accurate Potassium quantification in these patients send serum separator tube (gold top) for subsequent determinations. ??Contact the Clinical Chemistry Laboratory if there are any questions. Chloride 106 98 - 107 mmol/L [facility] Carbon Dioxide 22 22 - 31 mmol/L [facility] Anion Gap 19(H) 5 - 15 mmol/L [facility] Calcium 9.4 8.5 - 10.5 mg/dL [facility] Est Glomerular Filtration Rate >60 >=60 [facility] Comment: The reported eGFR should be multiplied by 1.2 for patients. The MDRD is not an appropriate measure of renal function for patients with body mass extremes or in patients with acute kidney failure. [email or web address] Blood specimen (specimen) 09/27/2017 9:43 AM EDT 09/27/2017 9:50 AM EDT Narrative Resulting Agency Comment Spec In Lab Kya Enriquez MD CHEMISTRY ORDERABL ES [facility] [place] [address] * (ABNORMAL) Basic Metabolic Panel (non-fasting) (09/25/2017 12:22 PM EDT) Glucose 81 65 - 199 mg/dL [facility] Comment:Diabetes: >=200 mg/d L plus symptoms Blood Urea Nitrogen 16 10 - 20 mg/dL [facility] Creatinine 0.68(L) 0.80 - 1.50 mg/dL [facility] Sodium 137 135 - 145 mmol/L [facility] Potassium 4.0 3.5 - 5.0 mmol/L [facility] Comment: Please note: ??Patients with WBC >100,000 may have falsely elevated Potassium levels. ??For accurate Potassium quantification in these patients send serum separator tube (gold top) for subsequent determinations. ??Contact the Clinical Chemistry Laboratory if there are any questions. Chloride 98 98 - 107 mmol/L [facility] Carbon Dioxide 24 22 - 31 mmol/L [facility] Anion Gap 15 5 - 15 mmol/L [facility] Calcium 9.1 8.5 - 10.5 mg/dL [facility] Est Glomerular Filtration Rate >60 >=60 [facility] Comment: The reported eGFR should be multiplied by 1.2 for patients. The MDRD is not an appropriate measure of renal function for patients with body mass extremes or in patients with acute kidney failure. [email or web address] [email or web address] Blood specimen (specimen) 09/25/2017 12:22 PM EDT 09/25/2017 12:30 PM EDT Narrative Resulting Agency Comment Spec In Lab Kya Enriquez MD CHEMISTRY ORDERABL ES Performing Organization Address [facility]/ZIP Co de Phone Number [facility] [place] [address] * (ABNORMAL) Basic Metabolic Panel (non-fasting) (09/24/2017 11:40 AM EDT) Glucose 96 65 - 199 mg/dL [facility] Comment:Diabetes: >=200 mg/d L plus symptoms Blood Urea Nitrogen 13 10 - 20 mg/dL [facility] Creatinine 0.78(L) 0.80 - 1.50 mg/dL [facility] Sodium 137 135 - 145 mmol/L [facility] Potassium 4.0 3.5 - 5.0 mmol/L [facility] Comment: Please note: ??Patients with WBC >100,000 may have falsely elevated Potassium levels. ??For accurate Potassium quantification in these patients send serum separator tube (gold top) for subsequent determinations. ??Contact the Clinical Chemistry Laboratory if there are any questions. Chloride 100 98 - 107 mmol/L [facility] Carbon Dioxide 26 22 - 31 mmol/L [facility] Anion Gap 11 5 - 15 mmol/L [facility] Calcium 8.9 8.5 - 10.5 mg/dL [facility] Est Glomerular Filtration Rate >60 >=60 [facility] Comment: The reported eGFR should be multiplied by 1.2 for patients. The MDRD is not an appropriate measure of renal function for patients with body mass extremes or in patients with acute kidney failure. [email or web address] Properties/DHnkdep [email or web address] Blood specimen (specimen) 09/24/2017 11:40 AM EDT 09/24/2017 11:47 AM EDT Narrative Resulting Agency Comment Spec In Lab Kya Enriquez MD CHEMISTRY ORDERABL ES Performing Organization Address [facility]/ZIP Co de Phone Number [facility] [place] [address] * XR Pelvis (Generic) (09/23/2017 5:26 PM [...] EDT) Glucose 87 65 - 199 mg/dL [facility] Comment:Diabetes: >=200 mg/d L plus symptoms Blood Urea Nitrogen 20 10 - 20 mg/dL [facility] Creatinine 0.86 0.80 - 1.50 mg/dL [facility] Sodium 139 135 - 145 mmol/L [facility] Potassium 4.1 3.5 - 5.0 mmol/L [facility] Comment: Please note: ??Patients with WBC >100,000 may have falsely elevated Potassium levels. ??For accurate Potassium quantification in these patients send serum separator tube (gold top) for subsequent determinations. ??Contact the Clinical Chemistry Laboratory if there are any questions. Chloride 100 98 - 107 mmol/L [facility] Carbon Dioxide 26 22 - 31 mmol/L [facility] Anion Gap 13 5 - 15 mmol/L [facility] Calcium 8.9 8.5 - 10.5 mg/dL [facility] Est Glomerular Filtration Rate >60 >=60 [facility] Comment: The reported eGFR should be multiplied by 1.2 for patients. The MDRD is not an appropriate measure of renal function for patients with body mass extremes or in patients with acute kidney failure. [email or web address]/DHnkdep [email or web address]://[employer]/[email or web address] Blood specimen (specimen) 09/22/2017 3:32 AM EDT 09/22/2017 4:16 AM EDT Narrative Resulting Agency Comment Spec In Lab Kya Enriquez MD CHEMISTRY ORDERABL ES [facility] [place] [address] * Basic Metabolic Panel (non-fasting) (09/21/2017 10:25 AM EDT) Glucose 92 65 - 199 mg/dL [facility] Comment:Diabetes: >=200 mg/d L plus symptoms Blood Urea Nitrogen 19 10 - 20 mg/dL [facility] Creatinine 0.87 0.80 - 1.50 mg/dL [facility] Sodium 141 135 - 145 mmol/L [facility] Potassium 3.8 3.5 - 5.0 mmol/L [facility] Comment: Please note: ??Patients with WBC >100,000 may have falsely elevated Potassium levels. ??For accurate Potassium quantification in these patients send serum separator tube (gold top) for subsequent determinations. ??Contact the Clinical Chemistry Laboratory if there are any questions. Chloride 102 98 - 107 mmol/L [facility] Carbon Dioxide 28 22 - 31 mmol/L [facility] Anion Gap 11 5 - 15 mmol/L [facility] Calcium 8.8 8.5 - 10.5 mg/dL [facility] Est Glomerular Filtration Rate >60 >=60 [facility] Comment: The reported eGFR should be multiplied by 1.2 for patients. The MDRD is not an appropriate measure of renal function for patients with body mass extremes or in patients with acute kidney failure. http://[employer]/DHnkdep [email or web address]://[employer]if[employer]/[email or web address] Blood specimen (specimen) 09/21/2017 10:25 AM EDT 09/21/2017 10:31 AM EDT Narrative Resulting Agency Comment Spec In Lab Kya Enriquez MD CHEMISTRY ORDERABL ES [facility] [place] [id number] * (ABNORMAL) Basic Metabolic Panel (non-fasting) (09/20/2017 5:51 AM EDT) Glucose 93 65 - 199 mg/dL [facility] Comment:Diabetes: >=200 mg/d L plus symptoms Blood Urea Nitrogen 22(H) 10 - 20 mg/dL [facility] Creatinine 0.90 0.80 - 1.50 mg/dL [facility] Sodium 144 135 - 145 mmol/L [facility] Potassium 3.6 3.5 - 5.0 mmol/L [facility] Comment: Please note: ??Patients with WBC >100,000 may have falsely elevated Potassium levels. ??For accurate Potassium quantification in these patients send serum separator tube (gold top) for subsequent determinations. ??Contact the Clinical Chemistry Laboratory if there are any questions. Chloride 104 98 - 107 mmol/L [facility] Carbon Dioxide 26 22 - 31 mmol/L [facility] Anion Gap 14 5 - 15 mmol/L [facility] Calcium 8.9 8.5 - 10.5 mg/dL [facility] Est Glomerular Filtration Rate >60 >=60 [facility] Comment: The reported eGFR should be multiplied by 1.2 for patients. The MDRD is not an appropriate measure of renal function for patients with body mass extremes or in patients with acute kidney failure. http://Unifys[employer]/DHnkdep [email or web address]://Unif[employer]/[email or web address] Blood specimen (specimen) 09/20/2017 5:51 AM EDT 09/20/2017 6:57 AM EDT Narrative Resulting Agency Comment Spec In Lab Reba Linton MD CHEMISTRY ORDERA BLES [facility] [place] [address] * XR Pelvis Judet or In Out [...] Scan, Peripheral Blood (09/19/2017 3:21 AM EDT) Pathologist [facility] Plat estimate Increased [facility] RBC Morphology Abnormal [facility] Hypochromia Slight [facility] Ovalocytes 1-5 /HPF [facility] Tear Cell 1-5 /HPF [facility] Blood specimen (specimen) 09/19/2017 3:21 AM EDT 09/19/2017 4:23 AM EDT Narrative Resulting Agency Comment Spec In Lab Juliet Medeiros APRN HEMATOLOGY ORDERABLE S [facility] [place] [address] * (ABNORMAL) Differential, Automated (09/19/2017 3:21 AM EDT) Pathologist [facility] Neutrophil % 50.0 % [facility] Neutrophil Absolute 3.69 1.70 - 6.10 x10(3)/mc L [facility] Lymph % 28.8 % [facility] Lymphocytes Abs 2.1 0.9 - 3.2 x10(3)/mc L [facility] Monocyte % 11.0 % [facility] Monocyte Abs 0.8 0.3 - 0.9 x10(3)/mc L [facility] Eos % 7.5 % [facility] Eosinophils Abs 0.6(H) 0.0 - 0.4 x10(3)/[facility] Basophil % 0.9 % [facility] Baso Absolute 0.1 0.0 - 0.1 x10(3)/[facility] Immature Gran % 1.80 % [facility] Comment: Immature granulocytes(IG's)percentage and absolute [...] Lab Juliet Medeiros APRN HEMATOLOGY ORDERABLE S [facility] [place] [address] * (ABNORMAL) Hemogram (09/19/2017 3:21 AM EDT) White Blood Cell 7.4 4.0 - 9.5 x10(3)/[facility] Red Blood Cell 3.52(L) 4.58 - 5.54 x10(6)/[facility] Hemoglobin 9.1(L) 13.7 - 16.5 gm/dL [facility] Hematocrit 31.4(L) 40.5 - 48.5 % [facility] Mean Cell Volume 89.2 82.9 - 93.1 fL [facility] Mean Cell Hemoglobin 25.9(L) 27.5 - 32.1 pg [facility] Mean Cell Hemoglobin Concentration 29.0(L) 32.0 - 35.7 gm/dL [facility] Platelet 648(H) 145 - 357 x10(3)/mc L [facility] RDW Standard Deviation 53.9(H) 36.0 - 45.0 fL [facility] RDW coefficient of variation 17.3(H) 11.4 - 13.8 % [facility] Mean Platelet Volume 8.9 7.6 - 12.9 fL [facility] NRBC% auto 0.5 % [facility] NRBC Absolute 0.040(H) 0.000 - 0.000 x10(3)/mc L [facility] Blood specimen (specimen) 09/19/2017 3:21 AM EDT 09/19/2017 4:23 AM EDT Narrative Resulting Agency Comment Spec In Lab Juliet Medeiros APRN HEMATOLOGY ORDERABLE S Performing Organization Address City/State/[facility] Co de Phone Number [facility] [place] [address] * (ABNORMAL) Basic Metabolic Panel (non-fasting) (09/19/2017 3:21 AM EDT) Glucose 91 65 - 199 mg/dL [facility] Comment:Diabetes: >=200 mg/d L plus symptoms Blood Urea Nitrogen 16 10 - 20 mg/dL [facility] Creatinine 1.02 0.80 - 1.50 mg/dL [facility] Sodium 149(H) 135 - 145 mmol/L [facility] Potassium 4.0 3.5 - 5.0 mmol/L [facility] Comment: Please note: ??Patients with WBC >100,000 may have falsely elevated Potassium levels. ??For accurate Potassium quantification in these patients send serum separator tube (gold top) for subsequent determinations. ??Contact the Clinical Chemistry Laboratory if there are any questions. Chloride 108(H) 98 - 107 mmol/L [facility] Carbon Dioxide 26 22 - 31 mmol/L [facility] Anion Gap 15 5 - 15 mmol/L [facility] Calcium 9.1 8.5 - 10.5 mg/dL [facility] Est Glomerular Filtration Rate >60 >=60 [facility] Comment: The reported eGFR should be multiplied by 1.2 for patients. The MDRD is not an appropriate measure of renal function for patients with body mass extremes or in patients with acute kidney failure. http://Unif[employer]/DHnkdep http://Unif[employer]/[email or web address] Blood specimen (specimen) 09/19/2017 3:21 AM EDT 09/19/2017 4:23 AM EDT Narrative Resulting Agency Comment Spec In Lab Juliet Medeiros APRN CHEMISTRY ORDERABLES Performing Organization Address [facility]/ZIP Co de Phone Number [facility] [place] [address] * Sodium (09/18/2017 5:46 AM EDT) Sodium 144 135 - 145 mmol/L [facility] Comment:Rechecked-KS Blood specimen (specimen) 09/18/2017 5:46 AM EDT 09/18/2017 5:59 AM EDT Narrative Resulting Agency Comment Spec In Lab Reba Linton MD CHEMISTRY ORDERA BLES Performing Organization Address City/[facility]/ZIP Co de Phone Number [facility] [place] [address] * (ABNORMAL) Hemogram (09/18/2017 5:46 AM EDT) White Blood Cell 6.6 4.0 - 9.5 x10(3)/mc L [facility] Red Blood Cell 3.05(L) 4.58 - 5.54 x10(6)/mc L [facility] Hemoglobin 8.2(L) 13.7 - 16.5 gm/dL [facility] Hematocrit 26.2(L) 40.5 - 48.5 % [facility] Mean Cell Volume 85.9 82.9 - 93.1 fL [facility] Mean Cell Hemoglobin 26.9(L) 27.5 - 32.1 pg [facility] Mean Cell Hemoglobin Concentration 31.3(L) 32.0 - 35.7 gm/dL [facility] Platelet 580(H) 145 - 357 x10(3)/mc L [facility] RDW Standard Deviation 50.4(H) 36.0 - 45.0 [facility] RDW coefficient of variation 16.7(H) 11.4 - 13.8 % [facility] Mean Platelet Volume 8.8 7.6 - 12.9 [facility] NRBC% auto 0.5 % [facility] NRBC Absolute 0.030(H) 0.000 - 0.000 x10(3)/mc L [facility] Blood specimen (specimen) 09/18/2017 5:46 AM EDT 09/18/2017 5:59 AM EDT Narrative Resulting Agency Comment Spec In Lab Reba Linton MD HEMATOLOGY ORDER LYNDSEY Performing Organization Address City/[facility]/ZIP Co de Phone Number [facility] [place] [address] * Sodium (09/17/2017 12:49 PM EDT) Sodium 136 135 - 145 mmol/L [facility] Blood specimen (specimen) 09/17/2017 12:49 PM EDT 09/17/2017 12:54 PM EDT Narrative Resulting Agency Comment Spec In Lab Reba Linton MD CHEMISTRY ORDERA BLES Performing Organization Address City/[facility]/ZIP Co de Phone Number [facility] [place] [address] * (ABNORMAL) Hemogram (09/17/2017 6:28 AM EDT) White Blood Cell 6.8 4.0 - 9.5 x10(3)/mc L [facility] Red Blood Cell 3.07(L) 4.58 - 5.54 x10(6)/mc L [facility] Hemoglobin 8.1(L) 13.7 - 16.5 gm/dL [facility] Hematocrit 26.0(L) 40.5 - 48.5 % [facility] Mean Cell Volume 84.7 82.9 - 93.1 fL [facility] Mean Cell Hemoglobin 26.4(L) 27.5 - 32.1 pg [facility] Mean Cell Hemoglobin Concentration 31.2(L) 32.0 - 35.7 gm/dL [facility] Platelet 497(H) 145 - 357 x10(3)/ L [facility] RDW Standard Deviation 46.9(H) 36.0 - 45.0 fL [facility] RDW coefficient of variation 15.7(H) 11.4 - 13.8 % [facility] Mean Platelet Volume 8.8 7.6 - 12.9 fL [facility] NRBC% auto 0.3 % [facility] NRBC Absolute 0.020(H) 0.000 - 0.000 x10(3)/mc L [facility] Blood specimen (specimen) 09/17/2017 6:28 AM EDT 09/17/2017 6:43 AM EDT Narrative Resulting Agency Comment Spec In Lab Reba Linton MD HEMATOLOGY ORDER LYNDSEY [facility] [place] [address] * ABORH Recheck Status (09/16/2017 9:27 AM EDT) Pathologist [facility] ABORH Type Recheck Completed [facility] Blood specimen (specimen) 09/16/2017 9:27 AM EDT 09/16/2017 9:32 AM EDT Narrative Resulting Agency Comment Spec In Lab Delgado Jeffrey MD BLOOD BANK LAB HERMES HANNON Performing Organization Address City/[facility]/ZIP Co de Phone Number [facility] [place] [address] * Antibody screen (09/16/2017 9:27 AM EDT) Ab Screen Interp Negative [facility] Expires at [id number] on: 09/19/2017 [facility] Blood specimen (specimen) 09/16/2017 9:27 AM EDT 09/16/2017 9:32 AM EDT Narrative Resulting Agency Comment Spec In Lab Delgado Jeffrey MD BLOOD BANK LAB HERMES HANNON Performing Organization Address [facility] Co de Phone Number [facility] [place] [address] * ABO/Rh Typing (09/16/2017 9:27 AM EDT) ABORH Type O Pos [facility] Blood specimen (specimen) 09/16/2017 9:27 AM EDT 09/16/2017 9:32 AM EDT Narrative Resulting Agency Comment Spec In Lab Delgado Jeffrey MD BLOOD BANK LAB HERMES HANNON Performing Organization Address [facility] Co de Phone Number [facility] [place] [address] * Prepare RBC (09/16/2017 8:35 AM EDT) Dispensed? Yes [facility] Blood specimen (specimen) 09/16/2017 8:35 AM EDT 09/16/2017 8:34 AM EDT Narrative Resulting Agency Comment Spec In Lab Reba Linton MD BLOOD BANK PRODU CT ORDERABLES Performing Organization Address City/[facility]/ZIP Co de Phone Number [facility] [place] [address] * Sodium (09/16/2017 5:07 AM EDT) Sodium 141 135 - 145 mmol/L [facility] Blood specimen (specimen) 09/16/2017 5:07 AM EDT 09/16/2017 5:14 AM EDT Narrative Resulting Agency Comment Spec In Lab Reba Linton MD CHEMISTRY ORDERA BLES [facility] [place] [address] * (ABNORMAL) Differential, Automated (09/16/2017 5:07 AM EDT) Neutrophil % 54.3 % [facility] Neutrophil Absolute 4.04 1.70 - 6.10 x10(3)/mc L [facility] Lymph % 24.3 % [facility] Lymphocytes Abs 1.8 0.9 - 3.2 x10(3)/mc L [facility] Monocyte % 10.0 % [facility] Monocyte Abs 0.7 0.3 - 0.9 x10(3)/mc L [facility] Eos % 8.8 % [facility] Eosinophils Abs 0.6(H) 0.0 - 0.4 x10(3)/mc L [facility] Basophil % 0.4 % [facility] Baso Absolute 0.0 0.0 - 0.1 x10(3)/mc L [facility] Immature Gran % 2.20 % [facility] Comment: Immature granulocytes(IG's)percentage and absolute count will include metamyelocytes, myelocytes, and promyelocytes. Blood smears from CBCs yielding IG's will be scanned manually for concordance. If this scan disagrees with the automated IG or if promyelocytes are noted, a manual differential will be performed. Immature Gran Absolute 0.16(H) 0.00 - 0.04 x10(3)/ L [facility] Blood specimen (specimen) 09/16/2017 5:07 AM EDT 09/16/2017 5:14 AM EDT Narrative Resulting Agency Comment Spec In Lab Delgado Jeffrey MD HEMATOLOGY ORDERABL ES [facility] [place] [address] * (ABNORMAL) Hemogram (09/16/2017 5:07 AM EDT) White Blood Cell 7.4 4.0 - 9.5 x10(3)/[facility] Red Blood Cell 2.58(L) 4.58 - 5.54 x10(6)/[facility] Hemoglobin 6.8(L) 13.7 - 16.5 gm/dL [facility] Hematocrit 21.8(L) 40.5 - 48.5 % [facility] Mean Cell Volume 84.5 82.9 - 93.1 [facility] Mean Cell Hemoglobin 26.4(L) 27.5 - 32.1 pg [facility] Mean Cell Hemoglobin Concentration 31.2(L) 32.0 - 35.7 gm/dL [facility] Platelet 366(H) 145 - 357 x10(3)/[facility]ORY RDW Standard Deviation 47.4(H) 36.0 - 45.0 [facility] RDW coefficient of variation 15.7(H) 11.4 - 13.8 % [facility] Mean Platelet Volume 8.7 7.6 - 12.9 [facility] NRBC% auto 0.3 % [facility] NRBC Absolute 0.020(H) 0.000 - 0.000 x10(3)/ L [facility] Blood specimen (specimen) 09/16/2017 5:07 AM EDT 09/16/2017 5:14 AM EDT Narrative Resulting Agency Comment Spec In Lab Delgado Jeffrey MD HEMATOLOGY ORDERABL ES Performing Organization Address [facility]/ZIP Co de Phone Number [facility] [place] [address] * SCAN DOC: LAB (09/16/2017 12:00 AM EDT) Narrative 09/16/2017 12:00 AM EDT Ordered by an unspecified provider. Scanning Provider MEDIA MGR SCAN EXT O RDR/RSLT * Sodium (09/15/2017 1:48 PM EDT) [facility] Sodium 137 135 - 145 mmol/L [facility] Blood specimen (specimen) 09/15/2017 1:48 PM EDT 09/15/2017 1:57 PM EDT Narrative Resulting Agency Comment Spec In Lab Reba Linton MD CHEMISTRY ORDERA BLES Performing Organization Address [facility]/ZIP Co de Phone Number [facility] [place] [address] * (ABNORMAL) Differential, Automated (09/15/2017 1:48 PM EDT) Pathologist [facility] Neutrophil % 65.7 % [facility] Neutrophil Absolute 5.35 1.70 - 6.10 x10(3)/mc L [facility] Lymph % 14.9 % [facility] Lymphocytes Abs 1.2 0.9 - 3.2 x10(3)/mc L [facility] Monocyte % 7.0 % [facility] Monocyte Abs 0.6 0.3 - 0.9 x10(3)/mc L [facility] Eos % 8.0 % [facility] Eosinophils Abs 0.6(H) 0.0 - 0.4 x10(3)/mc L [facility] Basophil % 0.5 % [facility] Baso Absolute 0.0 0.0 - 0.1 x10(3)/mc L [facility] Immature Gran % 3.90 % [facility] Comment: Immature granulocytes(IG's)percentage and absolute count will include metamyelocytes, myelocytes, and promyelocytes. Blood smears from CBCs yielding IG's will be scanned manually for concordance. If this scan disagrees with the automated IG or if promyelocytes are noted, a manual differential will be performed. Immature Gran Absolute 0.32(H) 0.00 - 0.04 x10(3)/ L [facility] Blood specimen (specimen) 09/15/2017 1:48 PM EDT 09/15/2017 1:57 PM EDT Narrative Resulting Agency Comment Spec In Lab Delgado Jeffrey MD HEMATOLOGY ORDERABL ES [facility] [place] [address] * (ABNORMAL) Hemogram (09/15/2017 1:48 PM EDT) White Blood Cell 8.1 4.0 - 9.5 x10(3)/ L [facility] Red Blood Cell 2.82(L) 4.58 - 5.54 x10(6)/mc L [facility] Hemoglobin 7.4(L) 13.7 - 16.5 gm/dL [facility] Hematocrit 24.2(L) 40.5 - 48.5 % [facility] Mean Cell Volume 85.8 82.9 - 93.1 fL [facility] Mean Cell Hemoglobin 26.2(L) 27.5 - 32.1 pg [facility] Mean Cell Hemoglobin Concentration 30.6(L) 32.0 - 35.7 gm/dL [facility] Platelet 399(H) 145 - 357 x10(3)/ L [facility] RDW Standard Deviation 48.6(H) 36.0 - 45.0 fL [facility] RDW coefficient of variation 15.9(H) 11.4 - 13.8 % [facility] Mean Platelet Volume 8.6 7.6 - 12.9 fL [facility] NRBC% auto 0.2 % [facility] NRBC Absolute 0.020(H) 0.000 - 0.000 x10(3)/mc L [facility] Blood specimen (specimen) 09/15/2017 1:48 PM EDT 09/15/2017 1:57 PM EDT Narrative Resulting Agency Comment Spec In Lab Delgado Jeffrey MD HEMATOLOGY ORDERABL ES Performing Organization Address City/[facility]/ZIP Co de Phone Number [facility] [place] [address] * Sodium (09/15/2017 6:07 AM EDT) Sodium 141 135 - 145 mmol/L [facility] Blood specimen (specimen) 09/15/2017 6:07 AM EDT 09/15/2017 6:20 AM EDT Narrative Resulting Agency Comment Spec In Lab Reba Linton MD CHEMISTRY ORDERA BLES Performing Organization Address City/[facility]/ZIP Co de Phone Number [facility] [place] [address] * Urinalysis with reflex Culture (09/14/2017 10:32 PM EDT) Glucose, Urine Dipstick Negative Negative mg/dL [facility] Protein, Urine Dipstick Negative Negative mg/dL [facility] Bilirubin, Urine Dipstick Negative Negative mg/dL [facility] Comment: Clinical correlation required for positive Urine Bilirubin results as false positive may occur with some drugs and drug related products. If a false positive is suspected a serum total bilirubin should be considered if clinically indicated. Urobilinogen, Urine Dipstick Normal Normal mg/dL [facility] pH, Urn (dipstick) 5.0 5.0 - 8.0 [facility] Blood, Urine Dipstick Negative Negative mg/dL [facility] Ketone, Urine Dipstick Negative Negative mg/dL [facility] Nitrite, Urine Dipstick Negative Negative [facility] Leukocytes, Urine Dipstick Negative Negative [facility] Appearance, Urine Dipstick Clear Clear [facility] Specific [place] Urine Automated 1.019 1.002 - 1.030 [facility] Color, Urine Dipstick Yellow Yellow [facility] Reflex to Culture No [facility] Urine specimen obtained via straight catheter (specimen) 09/14/2017 10:32 PM EDT 09/14/2017 11:25 PM EDT Narrative Resulting Agency Comment Spec In Lab Shannan Davalos APRN URINE ORDERABLES Performing Organization Address [facility] Co de Phone Number [facility] [place] [address] * Sodium (09/14/2017 10:16 PM EDT) Sodium 142 135 - 145 mmol/L [facility] Blood specimen (specimen) 09/14/2017 10:16 PM EDT 09/14/2017 10:22 PM EDT Narrative Resulting Agency Comment Spec In Lab Reba Linton MD CHEMISTRY ORDERA BLES Performing Organization Address City/[facility] Co de Phone Number [facility] [place] [address] * XR Chest PA or AP 1 [...] Blood Culture No growth at 5 days. [facility] Blood specimen (specimen) 09/14/2017 8:51 PM EDT 09/14/2017 9:30 PM EDT Comment:R AC.BR Narrative Resulting Agency Comment Spec In Lab Shannan Davalos APRN MICROBIOLOGY - BLOOD ORDERABLES Performing Organization Address [facility] Co de Phone Number [facility] [place] [address] * Blood culture (09/14/2017 8:51 PM EDT) Blood Culture No growth at 5 days. [facility] Blood specimen (specimen) 09/14/2017 8:51 PM EDT 09/14/2017 9:30 PM EDT Comment:L AC Narrative Resulting Agency Comment Spec In Lab Shannan Davalos APRN MICROBIOLOGY - BLOOD ORDERABLES Performing Organization Address [facility] Co de Phone Number [facility] [place] [address] * T4, free (09/14/2017 2:09 PM EDT) Free T4 1.01 0.93 - 1.70 ng/dL [facility] Blood specimen (specimen) Venous Draw / Unknown 09/14/2017 2:09 PM EDT 09/14/2017 4:05 PM EDT Narrative Resulting Agency Comment Spec In Lab Yadi Mccauley MD CHEMISTRY ORDERAB LES Performing Organization Address City/[facility]/ZIP Co de Phone Number [facility] [place] [address] * Sodium (09/14/2017 2:09 PM EDT) [facility] Sodium 145 135 - 145 mmol/L [facility] Blood specimen (specimen) 09/14/2017 2:09 PM EDT 09/14/2017 2:14 PM EDT Narrative Resulting Agency Comment Spec In Lab Reba Linton MD CHEMISTRY ORDERA BLES Performing Organization Address [facility] Co de Phone Number [facility] [place] [address] * Magnesium (09/14/2017 2:09 PM EDT) [facility] Magnesium 0.85 0.69 - 1.07 mmol/L [facility] Blood specimen (specimen) 09/14/2017 2:09 PM EDT 09/14/2017 2:14 PM EDT Narrative Resulting Agency Comment Spec In Lab Reba Linton MD CHEMISTRY ORDERA BLES Performing Organization Address [facility]/ZIP Co de Phone Number [facility] [place] [address] * Basic Metabolic Panel (non-fasting) (09/14/2017 2:09 PM EDT) [facility] Glucose 73 65 - 199 mg/dL [facility] Comment:Diabetes: >=200 mg/d L plus symptoms Blood Urea Nitrogen 16 10 - 20 mg/dL [facility] Creatinine 0.92 0.80 - 1.50 mg/dL [facility] Sodium 145 135 - 145 mmol/L [facility] Potassium 3.6 3.5 - 5.0 mmol/L [facility] Comment: Please note: ??Patients with WBC >100,000 may have falsely elevated Potassium levels. ??For accurate Potassium quantification in these patients send serum separator tube (gold top) for subsequent determinations. ??Contact the Clinical Chemistry Laboratory if there are any questions. Chloride 104 98 - 107 mmol/L [facility] Carbon Dioxide 27 22 - 31 mmol/L [facility] Anion Gap 14 5 - 15 mmol/L [facility] Calcium 8.6 8.5 - 10.5 mg/dL [facility] Est Glomerular Filtration Rate >60 >=60 [facility] Comment: The reported eGFR should be multiplied by 1.2 for patients. The MDRD is not an appropriate measure of renal function for patients with body mass extremes or in patients with acute kidney failure. http://[employer]/DHnkdep http://[employer]/DHMCnkf Blood specimen (specimen) 09/14/2017 2:09 PM EDT 09/14/2017 2:14 PM EDT Narrative Resulting Agency Comment Spec In Lab Reba Linton MD CHEMISTRY ORDERA BLES Performing Organization Address [facility] Co de Phone Number [facility] [place] [address] * Sodium (09/14/2017 9:37 AM EDT) Sodium 142 135 - 145 mmol/L [facility] Blood specimen (specimen) 09/14/2017 9:37 AM EDT 09/14/2017 9:40 AM EDT Narrative Resulting Agency Comment Spec In Lab Reba Linton MD CHEMISTRY ORDERA BLES Performing Organization Address [facility]/State/ZIP Co de Phone Number [facility] [place] [address] * Sodium (09/14/2017 5:07 AM EDT) Sodium 144 135 - 145 mmol/L [facility] Blood specimen (specimen) 09/14/2017 5:07 AM EDT 09/14/2017 5:30 AM EDT Narrative Resulting Agency Comment Spec In Lab Reba Linton MD CHEMISTRY ORDERA BLES Performing Organization Address [facility] Co de Phone Number [facility] [place] [address] * Sodium (09/13/2017 9:42 PM EST) Sodium 138 135 - 145 mmol/L [facility] Blood specimen (specimen) 09/13/2017 9:42 PM EST 09/13/2017 9:50 PM EST Narrative Resulting Agency Comment Spec In Lab Reba Linton MD CHEMISTRY ORDERA BLES Performing Organization Address [facility] Co de Phone Number [facility] [place] [address] * Sodium (09/13/2017 2:39 PM EST) Sodium 140 135 - 145 mmol/L [facility] Blood specimen (specimen) 09/13/2017 2:39 PM EST 09/13/2017 2:44 PM EST Narrative Resulting Agency Comment Spec In Lab Reba Linton MD CHEMISTRY ORDERA BLES Performing Organization Address [facility] Co de Phone Number [facility] [place] [address] * Osmolality (09/13/2017 9:09 AM EST) Osmolality 291 275 - 295 mOsm/kg [facility] Blood specimen (specimen) 09/13/2017 9:09 AM EST 09/13/2017 9:13 AM EST Narrative Resulting Agency Comment Spec In Lab Ren Sanchez III, MD CHEMISTRY ORDERABLES Performing Organization Address City/[facility]/ZIP Co de Phone Number [facility] [place] [address] * Sodium (09/13/2017 9:09 AM EST) Sodium 143 135 - 145 mmol/L [facility] Blood specimen (specimen) 09/13/2017 9:09 AM EST 09/13/2017 9:13 AM EST Narrative Resulting Agency Comment Spec In Lab Ren Sanchez III, MD CHEMISTRY ORDERABLES Performing Organization Address [facility] Co de Phone Number [facility] [place] [address] * Osmolality, urine, random (09/13/2017 4:35 AM EST) Osmolality, Urine 749 50 - 1,200 mOsm/kg [facility] Urine specimen (specimen) 09/13/2017 4:35 AM EST 09/13/2017 5:03 AM EST Narrative Resulting Agency Comment Spec In Lab Ren Sanchez III, MD URINE ORDERABLES Performing Organization Address City/[facility] Co de Phone Number [facility] [place] [address] * Sodium (09/13/2017 3:57 AM EST) Sodium 142 135 - 145 mmol/L [facility] Blood specimen (specimen) 09/13/2017 3:57 AM EST 09/13/2017 4:05 AM EST Narrative Resulting Agency Comment Spec In Lab Ren Sanchez III, MD CHEMISTRY ORDERABLES Performing Organization Address City/[facility]/ZIP Co de Phone Number [facility] [place] [address] * Osmolality (09/13/2017 3:57 AM EST) Osmolality 292 275 - 295 mOsm/kg [facility] Blood specimen (specimen) 09/13/2017 3:57 AM EST 09/13/2017 4:05 AM EST Narrative Resulting Agency Comment Spec In Lab Ren Sanchez III, MD CHEMISTRY ORDERABLES Performing Organization Address [facility] Co de Phone Number [facility] [place] [address] * Osmolality, urine, random (09/13/2017 12:38 AM EST) Osmolality, Urine 620 50 - 1,200 mOsm/kg [facility] Urine specimen (specimen) 09/13/2017 12:38 AM EST 09/13/2017 12:56 AM EST Narrative Resulting Agency Comment Spec In Lab Ren Sanchez III, MD URINE ORDERABLES Performing Organization Address [facility] Co de Phone Number [facility] [place] [address] * Osmolality (09/12/2017 11:43 PM EST) Osmolality 294 275 - 295 mOsm/kg [facility] Blood specimen (specimen) 09/12/2017 11:43 PM EST 09/12/2017 11:49 PM EST Narrative Resulting Agency Comment Spec In Lab Ren Sanchez III, MD CHEMISTRY ORDERABLES Performing Organization Address [facility] Co de Phone Number [facility] [place] [address] * Sodium (09/12/2017 11:43 PM EST) Sodium 143 135 - 145 mmol/L [facility] Blood specimen (specimen) 09/12/2017 11:43 PM EST 09/12/2017 11:49 PM EST Narrative Resulting Agency Comment Spec In Lab Ren Sanchez III, MD CHEMISTRY ORDERABLES Performing Organization Address City/[facility] Co de Phone Number [facility] [place] [address] * Osmolality, urine, random (09/12/2017 8:16 PM EST) Osmolality, Urine 773 50 - 1,200 mOsm/kg [facility] Urine specimen (specimen) 09/12/2017 8:16 PM EST 09/12/2017 8:36 PM EST Narrative Resulting Agency Comment Spec In Lab Ren Sanchez III, MD URINE ORDERABLES Performing Organization Address [facility] Co de Phone Number [facility] [place] [address] * (ABNORMAL) Osmolality (09/12/2017 7:39 PM EST) Osmolality 296(H) 275 - 295 mOsm/kg [facility] Blood specimen (specimen) 09/12/2017 7:39 PM EST 09/12/2017 7:54 PM EST Narrative Resulting Agency Comment Spec In Lab Ren Sanchez III, MD CHEMISTRY ORDERABLES Performing Organization Address [facility] Co de Phone Number [facility] [place] [address] * Sodium (09/12/2017 7:39 PM EST) Sodium 142 135 - 145 mmol/L [facility] Blood specimen (specimen) 09/12/2017 7:39 PM EST 09/12/2017 7:54 PM EST Narrative Resulting Agency Comment Spec In Lab Ren Sanchez III, MD CHEMISTRY ORDERABLES Performing Organization Address [facility] Co de Phone Number [facility] [place] [address] * Osmolality, urine, random (09/12/2017 3:54 PM EST) Osmolality, Urine 779 50 - 1,200 mOsm/kg [facility] Urine specimen (specimen) 09/12/2017 3:54 PM EST 09/12/2017 4:14 PM EST Narrative Resulting Agency Comment Spec In Lab Ren Sanchez III, MD URINE ORDERABLES Performing Organization Address [facility] Number [facility] [place] [address] * (ABNORMAL) Osmolality (09/12/2017 3:52 PM EST) Osmolality 303(H) 275 - 295 mOsm/kg [facility] Blood specimen (specimen) 09/12/2017 3:52 PM EST 09/12/2017 3:57 PM EST Narrative Resulting Agency Comment Spec In Lab Ren Sanchez III, MD CHEMISTRY ORDERABLES Performing Organization Address [facility] Phone Number [facility] [place] [address] * Sodium (09/12/2017 3:52 PM EST) Sodium 145 135 - 145 mmol/L [facility] Blood specimen (specimen) 09/12/2017 3:52 PM EST 09/12/2017 3:57 PM EST Narrative Resulting Agency Comment Spec In Lab Ren Sanchez III, MD CHEMISTRY ORDERABLES Performing Organization Address [facility] Phone Number [facility] [place] [address] * Osmolality, urine, random (09/12/2017 1:19 PM EST) Osmolality, Urine 157 50 - 1,200 mOsm/kg [facility] Urine specimen (specimen) 09/12/2017 1:19 PM EST 09/12/2017 2:00 PM EST Narrative Resulting Agency Comment Spec In Lab Ren Sanchez III, MD URINE ORDERABLES Performing Organization Address [facility] Co de Phone Number [facility] [place] [address] * (ABNORMAL) Osmolality (09/12/2017 12:14 PM EST) Osmolality 302(H) 275 - 295 mOsm/kg [facility] Blood specimen (specimen) 09/12/2017 12:14 PM EST 09/12/2017 12:30 PM EST Narrative Resulting Agency Comment Spec In Lab Ren Sanchez III, MD CHEMISTRY ORDERABLES Performing Organization Address [facility] Co de Phone Number [facility] [place] [address] * (ABNORMAL) Sodium (09/12/2017 12:14 PM EST) Sodium 148(H) 135 - 145 mmol/L [facility] Blood specimen (specimen) 09/12/2017 12:14 PM EST 09/12/2017 12:30 PM EST Narrative Resulting Agency Comment Spec In Lab Ren Sanchez III, MD CHEMISTRY ORDERABLES Performing Organization Address [facility] Co de Phone Number [facility] [place] [address] * Sodium (09/12/2017 7:48 AM EST) Sodium 141 135 - 145 mmol/L [facility] Blood specimen (specimen) 09/12/2017 7:48 AM EST 09/12/2017 8:06 AM EST Narrative Resulting Agency Comment Spec In Lab Ren Sanchez III, MD CHEMISTRY ORDERABLES Performing Organization Address [facility] Co de Phone Number [facility] [place] [address] * Sodium (09/12/2017 4:01 AM EST) Sodium 136 135 - 145 mmol/L [facility] Blood specimen (specimen) 09/12/2017 4:01 AM EST 09/12/2017 4:06 AM EST Narrative Resulting Agency Comment Spec In Lab Ren Sanchez III, MD CHEMISTRY ORDERABLES Performing Organization Address City/[facility]/ZIP Co de Phone Number [facility] [place] [address] * (ABNORMAL) Sodium (09/12/2017 12:02 AM EST) Sodium 133(L) 135 - 145 mmol/L [facility] Blood specimen (specimen) 09/12/2017 12:02 AM EST 09/12/2017 12:06 AM EST Narrative Resulting Agency Comment Spec In Lab Ren Sanchez III, MD CHEMISTRY ORDERABLES Performing Organization Address [facility]/ZIP Co de Phone Number [facility] [place] [address] * Sodium (09/11/2017 7:53 PM EST) Sodium 135 135 - 145 mmol/L [facility] Blood specimen (specimen) 09/11/2017 7:53 PM EST 09/11/2017 7:57 PM EST Narrative Resulting Agency Comment Spec In Lab Ren Sanchez III, MD CHEMISTRY ORDERABLES Performing Organization Address City/[facility] Co de Phone Number [facility] [place] [address] * Sodium (09/11/2017 5:56 PM EST) Sodium 135 135 - 145 mmol/L [facility] Blood specimen (specimen) 09/11/2017 5:56 PM EST 09/11/2017 6:06 PM EST Narrative Resulting Agency Comment Spec In Lab Ren Sanchez III, MD CHEMISTRY ORDERABLES Performing Organization Address City/[facility]/ZIP Co de Phone Number [facility] [place] [address] * Sodium (09/11/2017 3:15 PM EST) Sodium 135 135 - 145 mmol/L [facility] Blood specimen (specimen) 09/11/2017 3:15 PM EST 09/11/2017 3:22 PM EST Narrative Resulting Agency Comment Spec In Lab Ren Sanchez III, MD CHEMISTRY ORDERABLES Performing Organization Address [facility] Co de Phone Number [facility] [place] [address] * (ABNORMAL) Sodium (09/11/2017 12:51 PM EST) Sodium 134(L) 135 - 145 mmol/L [facility] Blood specimen (specimen) 09/11/2017 12:51 PM EST 09/11/2017 1:03 PM EST Narrative Resulting Agency Comment Spec In Lab Ren Sanchez III, MD CHEMISTRY ORDERABLES Performing Organization Address [facility] Co de Phone Number [facility] [place] [address] * (ABNORMAL) Sodium (09/11/2017 10:48 AM EST) Sodium 132(L) 135 - 145 mmol/L [facility] Blood specimen (specimen) 09/11/2017 10:48 AM EST 09/11/2017 10:55 AM EST Narrative Resulting Agency Comment Spec In Lab Ren Sanchez III, MD CHEMISTRY ORDERABLES Performing Organization Address [facility] Co de Phone Number [facility] [place] [address] * (ABNORMAL) Osmolality (09/11/2017 8:33 AM EST) Osmolality 271(L) 275 - 295 mOsm/kg [facility] Blood specimen (specimen) 09/11/2017 8:33 AM EST 09/11/2017 8:39 AM EST Narrative Resulting Agency Comment Spec In Lab Ren Sanchez III, MD CHEMISTRY ORDERABLES Performing Organization Address [facility]/ZIP Co de Phone Number [facility] [place] [address] * (ABNORMAL) Sodium (09/11/2017 8:33 AM EST) Sodium 131(L) 135 - 145 mmol/L [facility] Blood specimen (specimen) 09/11/2017 8:33 AM EST 09/11/2017 8:39 AM EST Narrative Resulting Agency Comment Spec In Lab Ren Sanchez III, MD CHEMISTRY ORDERABLES Performing Organization Address [facility] Co de Phone Number [facility] [place] [address] * Osmolality, urine, random (09/11/2017 7:56 AM EST) Pathologist [facility] Osmolality, Urine 571 50 - 1,200 mOsm/kg [facility] Urine specimen (specimen) 09/11/2017 7:56 AM EST 09/11/2017 8:16 AM EST Narrative Resulting Agency Comment Spec In Lab Ren Sanchez III, MD URINE ORDERABLES Performing Organization Address [facility] Co de Phone Number [facility] [place] [address] * (ABNORMAL) Basic Metabolic Panel (non-fasting) (09/11/2017 3:47 AM EST) Glucose 89 65 - 199 mg/dL [facility] Comment:Diabetes: >=200 mg/d L plus symptoms Blood Urea Nitrogen 14 10 - 20 mg/dL [facility] Creatinine 0.63(L) 0.80 - 1.50 mg/dL [facility] Sodium 128(L) 135 - 145 mmol/L [facility] Potassium 3.5 3.5 - 5.0 mmol/L [facility] Comment: Please note: ??Patients with WBC >100,000 may have falsely elevated Potassium levels. ??For accurate Potassium quantification in these patients send serum separator tube (gold top) for subsequent determinations. ??Contact the Clinical Chemistry Laboratory if there are any questions. Chloride 91(L) 98 - 107 mmol/L [facility] Carbon Dioxide 24 22 - 31 mmol/L [facility] Anion Gap 13 5 - 15 mmol/L [facility] Calcium 8.1(L) 8.5 - 10.5 mg/dL [facility] Est Glomerular Filtration Rate >60 >=60 [facility] Comment: The reported eGFR should be multiplied by 1.2 for patients. The MDRD is not an appropriate measure of renal function for patients with body mass extremes or in patients with acute kidney failure. http://[employer]/DHnkdep http://[employer]/DHMCnkf Blood specimen (specimen) 09/11/2017 3:47 AM EST 09/11/2017 4:03 AM EST Narrative Resulting Agency Comment Spec In Lab Ren Sanchez III, MD CHEMISTRY ORDERABLES Performing Organization Address City/[facility] Co de Phone Number [facility] [place] [address] * (ABNORMAL) Sodium (09/10/2017 6:57 PM EST) Sodium 130(L) 135 - 145 mmol/L [facility] Blood specimen (specimen) 09/10/2017 6:57 PM EST 09/10/2017 7:02 PM EST Narrative Resulting Agency Comment Spec In Lab Ren Sanchez III, MD CHEMISTRY ORDERABLES Performing Organization Address [facility]/ZIP Co de Phone Number [facility] [place] [address] * (ABNORMAL) Differential, Automated (09/10/2017 3:50 AM EST) Neutrophil % 51.9 % [facility] Neutrophil Absolute 4.55 1.70 - 6.10 x10(3)/mc L [facility] Lymph % 21.8 % [facility] Lymphocytes Abs 1.9 0.9 - 3.2 x10(3)/[facility] Monocyte % 10.6 % [facility] Monocyte Abs 0.9 0.3 - 0.9 x10(3)/[facility]ATORY Eos % 7.0 % [facility] Eosinophils Abs 0.6(H) 0.0 - 0.4 x10(3)/[facility]ATORY Basophil % 0.6 % [facility] Baso Absolute 0.0 0.0 - 0.1 x10(3)/[facility]ORY Immature Gran % 8.10 % [facility] Comment: Immature granulocytes(IG's)percentage and absolute [...] Lab Christopher Dalal MD HEMATOLOGY ORDERABLE S [facility] [place] [address] * (ABNORMAL) Hemogram (09/10/2017 3:50 AM EST) White Blood Cell 8.8 4.0 - 9.5 x10(3)/[facility] Red Blood Cell 3.06(L) 4.58 - 5.54 x10(6)/[facility]ORY Hemoglobin 8.5(L) 13.7 - 16.5 gm/dL [facility] Hematocrit 25.7(L) 40.5 - 48.5 % [facility] Mean Cell Volume 84.0 82.9 - 93.1 fL [facility] Mean Cell Hemoglobin 27.8 27.5 - 32.1 pg [facility] Mean Cell Hemoglobin Concentration 33.1 32.0 - 35.7 gm/dL [facility] Platelet 332 145 - 357 x10(3)/mc L [facility] RDW Standard Deviation 45.8(H) 36.0 - 45.0 fL [facility] RDW coefficient of variation 15.7(H) 11.4 - 13.8 % [facility] Mean Platelet Volume 9.1 7.6 - 12.9 [facility] NRBC% auto 0.3 % [facility] NRBC Absolute 0.030(H) 0.000 - 0.000 x10(3)/mc L [facility] Blood specimen (specimen) 09/10/2017 3:50 AM EST 09/10/2017 4:15 AM EST Narrative Resulting Agency Comment Spec In Lab Christopher Dalal MD HEMATOLOGY ORDERABLE S Performing Organization Address City/[facility]/ZIP Co de Phone Number [facility] [place] [address] * Sodium (09/10/2017 3:50 AM EST) Sodium 138 135 - 145 mmol/L [facility] Blood specimen (specimen) 09/10/2017 3:50 AM EST 09/10/2017 4:15 AM EST Narrative Resulting Agency Comment Spec In Lab Ren Sanchez III, MD CHEMISTRY ORDERABLES Performing Organization Address City/[facility]/ZIP Co de Phone Number [facility] [place] [address] * Sodium (09/09/2017 11:02 AM EST) Sodium 141 135 - 145 mmol/L [facility] Blood specimen (specimen) 09/09/2017 11:02 AM EST 09/09/2017 11:13 AM EST Narrative Resulting Agency Comment Spec In Lab Ren Sanchez III, MD CHEMISTRY ORDERABLES Performing Organization Address [facility] Co de Phone Number [facility] [place] [address] * Scan, Peripheral Blood (09/09/2017 3:21 AM EST) [facility] Plat estimate Normal [facility] RBC Morphology Abnormal [facility] Polychromasia Present >5/HPF [facility] Ovalocytes 1-5 /HPF [facility] Blood specimen (specimen) 09/09/2017 3:21 AM EST 09/09/2017 3:31 AM EST Narrative Resulting Agency Comment Spec In Lab Christopher Dalal MD HEMATOLOGY ORDERABLE S Performing Organization Address City/[facility]/ZIP Co de Phone Number [facility] [place] [address] * (ABNORMAL) Differential, Automated (09/09/2017 3:21 AM EST) [facility] Neutrophil % 50.7 % [facility] Neutrophil Absolute 3.95 1.70 - 6.10 x10(3)/mc L [facility] Lymph % 21.8 % [facility] Lymphocytes Abs 1.7 0.9 - 3.2 x10(3)/mc L [facility] Monocyte % 10.3 % [facility] Monocyte Abs 0.8 0.3 - 0.9 x10(3)/mc L [facility] Eos % 7.9 % [facility] Eosinophils Abs 0.6(H) 0.0 - 0.4 x10(3)/mc L [facility] Basophil % 0.8 % [facility] Baso Absolute 0.1 0.0 - 0.1 x10(3)/mc L [facility] Immature Gran % 8.50 % [facility] Comment: Immature granulocytes(IG's)percentage and absolute count will include metamyelocytes, myelocytes, and promyelocytes. Blood smears from CBCs yielding IG's will be scanned manually for concordance. If this scan disagrees with the automated IG or if promyelocytes are noted, a manual differential will be performed. Immature Gran Absolute 0.66(H) 0.00 - 0.04 x10(3)/ L [facility] Blood specimen (specimen) 09/09/2017 3:21 AM EST 09/09/2017 3:31 AM EST Narrative Resulting Agency Comment Spec In Lab Christopher Dalal MD HEMATOLOGY ORDERABLE S Performing Organization Address City/State/[facility] Co de Phone Number [facility] [place] [address] * (ABNORMAL) Hemogram (09/09/2017 3:21 AM EST) White Blood Cell 7.8 4.0 - 9.5 x10(3)/[facility] LABORATORY Red Blood Cell 2.80(L) 4.58 - 5.54 x10(6)/mc L [facility] Hemoglobin 7.7(L) 13.7 - 16.5 gm/dL [facility] Hematocrit 23.7(L) 40.5 - 48.5 % [facility] Mean Cell Volume 84.6 82.9 - 93.1 fL [facility] Mean Cell Hemoglobin 27.5 27.5 - 32.1 pg [facility] Mean Cell Hemoglobin Concentration 32.5 32.0 - 35.7 gm/dL [facility] Platelet 245 145 - 357 x10(3)/ L [facility] RDW Standard Deviation 46.8(H) 36.0 - 45.0 fL [facility] RDW coefficient of variation 15.5(H) 11.4 - 13.8 % [facility] Mean Platelet Volume 9.1 7.6 - 12.9 fL [facility] NRBC% auto 0.8 % [facility] NRBC Absolute 0.060(H) 0.000 - 0.000 x10(3)/mc L [facility] Blood specimen (specimen) 09/09/2017 3:21 AM EST 09/09/2017 3:31 AM EST Narrative Resulting Agency Comment Spec In Lab Christopher Dalal MD HEMATOLOGY ORDERABLE S Performing Organization Address [facility] Co de Phone Number [facility] [place] [address] * Sodium (09/09/2017 3:21 AM EST) Sodium 140 135 - 145 mmol/L [facility] Blood specimen (specimen) 09/09/2017 3:21 AM EST 09/09/2017 3:31 AM EST Narrative Resulting Agency Comment Spec In Lab Ren Sanchez III, MD CHEMISTRY ORDERABLES Performing Organization Address [facility] Co de Phone Number [facility] [place] [address] * Sodium (09/08/2017 6:19 PM EST) Sodium 138 135 - 145 mmol/L [facility] Blood specimen (specimen) 09/08/2017 6:19 PM EST 09/08/2017 6:26 PM EST Narrative Resulting Agency Comment Spec In Lab Ren Sanchez III, MD CHEMISTRY ORDERABLES Performing Organization Address [facility] Co de Phone Number [facility] [place] [address] * U24 Hrs and Volume (09/08/2017 6:00 PM EST) Hours Collected 24 hour(s) [facility] Total Volume 4,700 mL [facility] Urine specimen (specimen) 09/08/2017 6:00 PM EST 09/08/2017 6:42 PM EST Narrative Resulting Agency Comment Spec In Lab Ren Sanchez III, MD CHEMISTRY ORDERABLES Performing Organization Address [facility] Co de Phone Number [facility] [place] [address] * Phosphorus, urine, 24 hour (09/08/2017 6:00 PM EST) Phosphorus Concentration, U24 12.5 mg/dL [facility] Phosphorus, 24 Hour Urine 0.6 0.4 - 1.3 gm/24hr [facility] Urine specimen (specimen) 09/08/2017 6:00 PM EST 09/08/2017 6:42 PM EST Narrative Resulting Agency Comment Spec In Lab Ren Sanchez III, MD URINE ORDERABLES Performing Organization Address [facility] de Phone Number [facility] [place] [address] * Creatinine, urine, 24 hour (09/08/2017 6:00 PM EST) Cre Concentration, U24 37 mg/dL [facility] Creatinine, 24 Hour Urine 1.74 0.80 - 1.90 gm/24hr [facility] Urine specimen (specimen) 09/08/2017 6:00 PM EST 09/08/2017 6:42 PM EST Narrative Resulting Agency Comment Spec In Lab Ren Sanchez III, MD URINE ORDERABLES Performing Organization Address [facility] de Phone Number [facility] [place] [address] * (ABNORMAL) Calcium, urine, 24 hour (09/08/2017 6:00 PM EST) Ca Concentration, U24 7.6 mg/dL [facility] Calcium, 24 Hour Urine 357.2(H) 50.0 - 300.0 mg/24hr [facility] Comment:Reference Range: 50. 0-300.0 mg/24 hour based on diet. Urine specimen (specimen) 09/08/2017 6:00 PM EST 09/08/2017 6:42 PM EST Narrative Resulting Agency Comment Spec In Lab Ren Sanchez III, MD URINE ORDERABLES Performing Organization Address [facility] de Phone Number [facility] [place] [address] * Sodium (09/08/2017 11:58 AM EST) Sodium 141 135 - 145 mmol/L [facility] Blood specimen (specimen) 09/08/2017 11:58 AM EST 09/08/2017 12:11 PM EST Narrative Resulting Agency Comment Spec In Lab Ren Sanchez III, MD CHEMISTRY ORDERABLES Performing Organization Address [facility] de Phone Number [facility] [place] [address] * (ABNORMAL) Differential, Automated (09/08/2017 3:34 AM EST) Neutrophil % 53.0 % [facility] Neutrophil Absolute 3.33 1.70 - 6.10 x10(3)/mc L [facility] Lymph % 25.8 % [facility] Lymphocytes Abs 1.6 0.9 - 3.2 x10(3)/mc L [facility] Monocyte % 8.4 % [facility] Monocyte Abs 0.5 0.3 - 0.9 x10(3)/mc L [facility] Eos % 8.8 % [facility] Eosinophils Abs 0.6(H) 0.0 - 0.4 x10(3)/mc L [facility] Basophil % 0.3 % [facility] Baso Absolute 0.0 0.0 - 0.1 x10(3)/mc L [facility] Immature Gran % 3.70 % [facility] Comment: Immature granulocytes(IG's)percentage and absolute [...] MD HEMATOLOGY ORDERABLE S Performing Organization Address City/State/[facility] Co de Phone Number [facility] [place] [address] * (ABNORMAL) Hemogram (09/08/2017 3:34 AM EST) White Blood Cell 6.3 4.0 - 9.5 x10(3)/[facility] Red Blood Cell 2.64(L) 4.58 - 5.54 x10(6)/[facility] Hemoglobin 7.2(L) 13.7 - 16.5 gm/dL [facility] Hematocrit 21.8(L) 40.5 - 48.5 % [facility] Mean Cell Volume 82.6(L) 82.9 - 93.1 fL [facility] Mean Cell Hemoglobin 27.3(L) 27.5 - 32.1 pg [facility] Mean Cell Hemoglobin Concentration 33.0 32.0 - 35.7 gm/dL [facility] Platelet 206 145 - 357 x10(3)/[facility] RDW Standard Deviation 45.4(H) 36.0 - 45.0 fL [facility] RDW coefficient of variation 15.4(H) 11.4 - 13.8 % [facility] Mean Platelet Volume 9.3 7.6 - 12.9 fL [facility] NRBC% auto 0.8 % [facility] NRBC Absolute 0.050(H) 0.000 - 0.000 x10(3)/mc L [facility] Blood specimen (specimen) 09/08/2017 3:34 AM EST 09/08/2017 3:59 AM EST Narrative Resulting Agency Comment Spec In Lab Christopher Dalal MD HEMATOLOGY ORDERABLE S Performing Organization Address City/[facility]/ZIP Co de Phone Number [facility] [place] [address] * Sodium (09/08/2017 3:34 AM EST) Sodium 143 135 - 145 mmol/L [facility] Blood specimen (specimen) 09/08/2017 3:34 AM EST 09/08/2017 3:59 AM EST Narrative Resulting Agency Comment Spec In Lab Ren Sanchez III, MD CHEMISTRY ORDERABLES Performing Organization Address [facility] Co de Phone Number [facility] [place] [address] * Phosphorus (09/08/2017 3:34 AM EST) Phosphorus 3.2 2.5 - 4.5 mg/dL [facility] Blood specimen (specimen) 09/08/2017 3:34 AM EST 09/08/2017 3:59 AM EST Narrative Resulting Agency Comment Spec In Lab Ren Sanchez III, MD CHEMISTRY ORDERABLES Performing Organization Address [facility] Co de Phone Number [facility] [place] [address] * (ABNORMAL) Calcium (09/08/2017 3:34 AM EST) Calcium 7.8(L) 8.5 - 10.5 mg/dL [facility] Blood specimen (specimen) 09/08/2017 3:34 AM EST 09/08/2017 3:59 AM EST Narrative Resulting Agency Comment Spec In Lab Ren Sanchez III, MD CHEMISTRY ORDERABLES Performing Organization Address [facility] Co de Phone Number [facility] [place] [address] * Sodium (09/07/2017 12:20 PM EST) Sodium 140 135 - 145 mmol/L [facility] Blood specimen (specimen) 09/07/2017 12:20 PM EST 09/07/2017 12:26 PM EST Narrative Resulting Agency Comment Spec In Lab Ren Sanchez III, MD CHEMISTRY ORDERABLES Performing Organization Address [facility] Phone Number [facility] [place] [address] * Sodium (09/07/2017 4:01 AM EST) Sodium 141 135 - 145 mmol/L [facility] Blood specimen (specimen) 09/07/2017 4:01 AM EST 09/07/2017 4:33 AM EST Narrative Resulting Agency Comment Spec In Lab Fran Gilliam MD CHEMISTRY ORDERABL ES Performing Organization Address [facility] de Phone Number [facility] [place] [address] * (ABNORMAL) Differential, Automated (09/07/2017 4:01 AM EST) Neutrophil % 64.9 % [facility] Neutrophil Absolute 3.64 1.70 - 6.10 x10(3)/mc L [facility] Lymph % 20.0 % [facility] Lymphocytes Abs 1.1 0.9 - 3.2 x10(3)/mc L [facility] Monocyte % 7.8 % [facility] Monocyte Abs 0.4 0.3 - 0.9 x10(3)/[facility] Eos % 4.8 % [facility] Eosinophils Abs 0.3 0.0 - 0.4 x10(3)/[facility] Basophil % 0.5 % [facility] Baso Absolute 0.0 0.0 - 0.1 x10(3)/[facility] Immature Gran % 2.00 % [facility] Comment: Immature granulocytes(IG's)percentage and absolute [...] MD HEMATOLOGY ORDERABLE S Performing Organization Address City/State/[facility] Co de Phone Number [facility] [place] [address] * (ABNORMAL) Hemogram (09/07/2017 4:01 AM EST) White Blood Cell 5.6 4.0 - 9.5 x10(3)/[facility] Red Blood Cell 2.52(L) 4.58 - 5.54 x10(6)/[facility] Hemoglobin 7.0(L) 13.7 - 16.5 gm/dL [facility] Hematocrit 20.5(L) 40.5 - 48.5 % [facility] Mean Cell Volume 81.3(L) 82.9 - 93.1 fL [facility] Mean Cell Hemoglobin 27.8 27.5 - 32.1 pg [facility] Mean Cell Hemoglobin Concentration 34.1 32.0 - 35.7 gm/dL [facility] Platelet 162 145 - 357 x10(3)/mc L [facility] RDW Standard Deviation 44.5 36.0 - 45.0 fL [facility] RDW coefficient of variation 15.3(H) 11.4 - 13.8 % [facility] Mean Platelet Volume 9.5 7.6 - 12.9 fL [facility] NRBC% auto 0.4 % [facility] NRBC Absolute 0.020(H) 0.000 - 0.000 x10(3)/mc L [facility] Blood specimen (specimen) 09/07/2017 4:01 AM EST 09/07/2017 4:33 AM EST Narrative Resulting Agency Comment Spec In Lab Christopher Dalal MD HEMATOLOGY ORDERABLE S Performing Organization Address [facility] Co de Phone Number [facility] [place] [address] * Sodium (09/06/2017 11:27 PM EST) Sodium 144 135 - 145 mmol/L [facility] Blood specimen (specimen) 09/06/2017 11:27 PM EST 09/07/2017 12:10 AM EST Narrative Resulting Agency Comment Spec In Lab Fran Gilliam MD CHEMISTRY ORDERABL ES Performing Organization Address [facility] Co de Phone Number [facility] [place] [address] * (ABNORMAL) Calcium (09/06/2017 11:27 PM EST) Calcium 7.6(L) 8.5 - 10.5 mg/dL [facility] Blood specimen (specimen) 09/06/2017 11:27 PM EST 09/07/2017 12:10 AM EST Narrative Resulting Agency Comment Spec In Lab Ren Sanchez III, MD CHEMISTRY ORDERABLES Performing Organization Address City/[facility]/ZIP Co de Phone Number [facility] [place] [address] * Phosphorus (09/06/2017 11:27 PM EST) Phosphorus 3.4 2.5 - 4.5 mg/dL [facility] Blood specimen (specimen) 09/06/2017 11:27 PM EST 09/07/2017 12:10 AM EST Narrative Resulting Agency Comment Spec In Lab Ren Sanchez III, MD CHEMISTRY ORDERABLES Performing Organization Address [facility] Co de Phone Number [facility] [place] [address] * Sodium (09/06/2017 7:41 PM EST) Sodium 143 135 - 145 mmol/L [facility] Blood specimen (specimen) 09/06/2017 7:41 PM EST 09/06/2017 7:45 PM EST Narrative Resulting Agency Comment Spec In Lab Fran Gilliam MD CHEMISTRY ORDERABL ES Performing Organization Address [facility] Co de Phone Number [facility] [place] [address] * Sodium (09/06/2017 3:49 PM EST) Sodium 144 135 - 145 mmol/L [facility] Blood specimen (specimen) Venous Draw / Unknown 09/06/2017 3:49 PM EST 09/06/2017 3:58 PM EST Narrative Resulting Agency Comment Spec In Lab Guerrero Tillman MD CHEMISTRY HERMES HANNON Performing Organization Address City/[facility]/ZIP Co de Phone Number [facility] [place] [address] * (ABNORMAL) Calcium (09/06/2017 3:49 PM EST) Calcium 8.0(L) 8.5 - 10.5 mg/dL [facility] Blood specimen (specimen) 09/06/2017 3:49 PM EST 09/06/2017 3:58 PM EST Narrative Resulting Agency Comment Spec In Lab Ren Sanchez III, MD CHEMISTRY ORDERABLES Performing Organization Address [facility]/ZIP Co de Phone Number [facility] [place] [address] * Phosphorus (09/06/2017 3:49 PM EST) Phosphorus 3.9 2.5 - 4.5 mg/dL [facility] Blood specimen (specimen) 09/06/2017 3:49 PM EST 09/06/2017 3:58 PM EST Narrative Resulting Agency Comment Spec In Lab Ren Sanchez III, MD CHEMISTRY ORDERABLES Performing Organization Address [facility] Co de Phone Number [facility] [place] [address] * (ABNORMAL) Albumin Level (09/06/2017 12:31 PM EST) Albumin 2.5(L) 3.2 - 5.2 gm/dL [facility] Blood specimen (specimen) 09/06/2017 12:31 PM EST 09/06/2017 12:38 PM EST Narrative Resulting Agency Comment Spec In Lab Genevieve Page MD CHEMISTRY ORDERABLES Performing Organization Address City/[facility]/ZIP Co de Phone Number [facility] [place] [address] * Sodium (09/06/2017 12:31 PM EST) Sodium 145 135 - 145 mmol/L [facility] Blood specimen (specimen) 09/06/2017 12:31 PM EST 09/06/2017 12:37 PM EST Narrative Resulting Agency Comment Spec In Lab Fran Gilliam MD CHEMISTRY ORDERABL ES Performing Organization Address [facility] Co de Phone Number [facility] [place] [address] * (ABNORMAL) Albumin Level (09/06/2017 8:33 AM EST) Albumin 2.4(L) 3.2 - 5.2 gm/dL [facility] Blood specimen (specimen) 09/06/2017 8:33 AM EST 09/06/2017 8:39 AM EST Narrative Resulting Agency Comment Spec In Lab Genevieve Page MD CHEMISTRY ORDERABLES Performing Organization Address [facility] Co de Phone Number [facility] [place] [address] * Phosphorus (09/06/2017 8:33 AM EST) Phosphorus 3.2 2.5 - 4.5 mg/dL [facility] Blood specimen (specimen) 09/06/2017 8:33 AM EST 09/06/2017 8:39 AM EST Narrative Resulting Agency Comment Spec In Lab Fran Gilliam MD CHEMISTRY ORDERABL ES Performing Organization Address [facility] Co de Phone Number [facility] [place] [address] * (ABNORMAL) Calcium (09/06/2017 8:33 AM EST) Calcium 8.1(L) 8.5 - 10.5 mg/dL [facility] Blood specimen (specimen) 09/06/2017 8:33 AM EST 09/06/2017 8:39 AM EST Narrative Resulting Agency Comment Spec In Lab Fran Gilliam MD CHEMISTRY ORDERABL ES Performing Organization Address [facility] Co de Phone Number [facility] [place] [address] * (ABNORMAL) Sodium (09/06/2017 8:33 AM EST) Sodium 146(H) 135 - 145 mmol/L [facility] Blood specimen (specimen) 09/06/2017 8:33 AM EST 09/06/2017 8:39 AM EST Narrative Resulting Agency Comment Spec In Lab Fran Gilliam MD CHEMISTRY ORDERABL ES [facility] [place] [address] * (ABNORMAL) Basic Metabolic Panel (non-fasting) (09/06/2017 8:33 AM EST) Glucose 72 65 - 199 mg/dL [facility] Comment:Diabetes: >=200 mg/d L plus symptoms Blood Urea Nitrogen 18 10 - 20 mg/dL [facility] Creatinine 0.79(L) 0.80 - 1.50 mg/dL [facility] Sodium 146(H) 135 - 145 mmol/L [facility] Potassium 3.7 3.5 - 5.0 mmol/L [facility] Comment: Please note: ??Patients with WBC >100,000 may have falsely elevated Potassium levels. ??For accurate Potassium quantification in these patients send serum separator tube (gold top) for subsequent determinations. ??Contact the Clinical Chemistry Laboratory if there are any questions. Chloride 111(H) 98 - 107 mmol/L [facility] Carbon Dioxide 26 22 - 31 mmol/L [facility] Anion Gap 9 5 - 15 mmol/L [facility] Calcium 8.1(L) 8.5 - 10.5 mg/dL [facility] Est Glomerular Filtration Rate >60 >=60 [facility] Comment: The reported eGFR should be multiplied by 1.2 for patients. The MDRD is not an appropriate measure of renal function for patients with body mass extremes or in patients with acute kidney failure. http://[employer]/DHnkdep http://[employer]/DHMCnkf Blood specimen (specimen) 09/06/2017 8:33 AM EST 09/06/2017 8:39 AM EST Narrative Resulting Agency Comment Spec In Lab Fran Gilliam MD CHEMISTRY ORDERABL ES [facility] [place] [address] * (ABNORMAL) Hemogram (09/06/2017 8:33 AM EST) White Blood Cell 7.0 4.0 - 9.5 x10(3)/mc L [facility] Red Blood Cell 2.87(L) 4.58 - 5.54 x10(6)/mc L [facility] Hemoglobin 7.8(L) 13.7 - 16.5 gm/dL [facility] Hematocrit 23.4(L) 40.5 - 48.5 % [facility] Mean Cell Volume 81.5(L) 82.9 - 93.1 fL [facility] Mean Cell Hemoglobin 27.2(L) 27.5 - 32.1 pg [facility] Mean Cell Hemoglobin Concentration 33.3 32.0 - 35.7 gm/dL [facility] Platelet 149 145 - 357 x10(3)/mc L [facility] RDW Standard Deviation 44.3 36.0 - 45.0 [facility] RDW coefficient of variation 15.2(H) 11.4 - 13.8 % [facility] Mean Platelet Volume 9.8 7.6 - 12.9 fL [facility] NRBC% auto 0.3 % [facility] NRBC Absolute 0.020(H) 0.000 - 0.000 x10(3)/mc L [facility] Blood specimen (specimen) 09/06/2017 8:33 AM EST 09/06/2017 8:39 AM EST Narrative Resulting Agency Comment Spec In Lab Juliet Medeiros APRN HEMATOLOGY ORDERABLE S Performing Organization Address [facility] Co de Phone Number [facility] [place] [address] * (ABNORMAL) Basic Metabolic Panel (non-fasting) (09/06/2017 4:31 AM EST) Glucose 92 65 - 199 mg/dL [facility] Comment:Diabetes: >=200 mg/d L plus symptoms Blood Urea Nitrogen 16 10 - 20 mg/dL [facility] Comment:result rechecked-IMM Creatinine 0.75(L) 0.80 - 1.50 mg/dL [facility] Sodium 144 135 - 145 mmol/L [facility] Potassium 3.6 3.5 - 5.0 mmol/L [facility] Comment: Please note: ??Patients with WBC >100,000 may have falsely elevated Potassium levels. ??For accurate Potassium quantification in these patients send serum separator tube (gold top) for subsequent determinations. ??Contact the Clinical Chemistry Laboratory if there are any questions. Chloride 109(H) 98 - 107 mmol/L [facility] Carbon Dioxide 25 22 - 31 mmol/L [facility] Anion Gap 10 5 - 15 mmol/L [facility] Calcium 7.7(L) 8.5 - 10.5 mg/dL [facility] Est Glomerular Filtration Rate >60 >=60 [facility] Comment: The reported eGFR should be multiplied by 1.2 for patients. The MDRD is not an appropriate measure of renal function for patients with body mass extremes or in patients with acute kidney failure. http://[employer]/DHnkdep http://[employer]com/DHMCnkf Blood specimen (specimen) 09/06/2017 4:31 AM EST 09/06/2017 5:04 AM EST Narrative Resulting Agency Comment Spec In Lab Fran Gilliam MD CHEMISTRY ORDERABL ES Performing Organization Address [facility] Co de Phone Number [facility] [place] [address] * Phosphorus (09/06/2017 4:31 AM EST) Phosphorus 3.5 2.5 - 4.5 mg/dL [facility] Blood specimen (specimen) 09/06/2017 4:31 AM EST 09/06/2017 5:04 AM EST Narrative Resulting Agency Comment Spec In Lab Fran Gilliam MD CHEMISTRY ORDERABL ES Performing Organization Address City/[facility]/ZIP Co de Phone Number [facility] [place] [address] * (ABNORMAL) Calcium (09/06/2017 4:31 AM EST) Calcium 7.7(L) 8.5 - 10.5 mg/dL [facility] Blood specimen (specimen) 09/06/2017 4:31 AM EST 09/06/2017 5:04 AM EST Narrative Resulting Agency Comment Spec In Lab Fran Gilliam MD CHEMISTRY ORDERABL ES Performing Organization Address [facility]/ZIP Co de Phone Number [facility] [place] [address] * Sodium (09/06/2017 4:31 AM EST) Sodium 144 135 - 145 mmol/L [facility] Blood specimen (specimen) 09/06/2017 4:31 AM EST 09/06/2017 5:04 AM EST Narrative Resulting Agency Comment Spec In Lab Fran Gilliam MD CHEMISTRY ORDERABL ES Performing Organization Address [facility]/ZIP Co de Phone Number [facility] [place] [address] * (ABNORMAL) Albumin Level (09/06/2017 4:31 AM EST) Albumin 2.6(L) 3.2 - 5.2 gm/dL [facility] Blood specimen (specimen) 09/06/2017 4:31 AM EST 09/06/2017 5:05 AM EST Narrative Resulting Agency Comment Spec In Lab Genevieve Page MD CHEMISTRY ORDERABLES [facility] [place] [address] * (ABNORMAL) Differential, Automated (09/06/2017 4:31 AM EST) Neutrophil % 60.5 % [facility] Neutrophil Absolute 4.00 1.70 - 6.10 x10(3)/mc L [facility] Lymph % 24.2 % [facility] Lymphocytes Abs 1.6 0.9 - 3.2 x10(3)/ L [facility] Monocyte % 9.5 % [facility] Monocyte Abs 0.6 0.3 - 0.9 x10(3)/[facility] Eos % 3.8 % [facility] Eosinophils Abs 0.2 0.0 - 0.4 x10(3)/[facility] Basophil % 0.5 % [facility] Baso Absolute 0.0 0.0 - 0.1 x10(3)/mc L [facility] Immature Gran % 1.50 % [facility] Comment: Immature granulocytes(IG's)percentage and absolute count will include metamyelocytes, myelocytes, and promyelocytes. Blood smears from CBCs yielding IG's will be scanned manually for concordance. If this scan disagrees with the automated IG or if promyelocytes are noted, a manual differential will be performed. Immature Gran Absolute 0.10(H) 0.00 - 0.04 x10(3)/mc L [facility] Blood specimen (specimen) 09/06/2017 4:31 AM EST 09/06/2017 5:04 AM EST Narrative Resulting Agency Comment Spec In Lab Christopher Dalal MD HEMATOLOGY ORDERABLE S Performing Organization Address [facility]/ZIP Co de Phone Number [facility] [place] [address] * (ABNORMAL) Hemogram (09/06/2017 4:31 AM EST) White Blood Cell 6.6 4.0 - 9.5 x10(3)/mc L [facility] Red Blood Cell 2.72(L) 4.58 - 5.54 x10(6)/mc L [facility] Hemoglobin 7.4(L) 13.7 - 16.5 gm/dL [facility] Comment: This result has been called to [place] FORMAN by Desean Pope on 09 06 2017 at 0515, and has been read back. Hematocrit 22.2(L) 40.5 - 48.5 % [facility] Mean Cell Volume 81.6(L) 82.9 - 93.1 fL [facility] Mean Cell Hemoglobin 27.2(L) 27.5 - 32.1 pg [facility] Mean Cell Hemoglobin Concentration 33.3 32.0 - 35.7 gm/dL [facility] Platelet 153 145 - 357 x10(3)/mc L [facility] RDW Standard Deviation 43.5 36.0 - 45.0 [facility] RDW coefficient of variation 14.9(H) 11.4 - 13.8 % [facility] Mean Platelet Volume 10.3 7.6 - 12.9 fL [facility] NRBC% auto 0.3 % [facility] NRBC Absolute 0.020(H) 0.000 - 0.000 x10(3)/mc L [facility] Blood specimen (specimen) 09/06/2017 4:31 AM EST 09/06/2017 5:04 AM EST Narrative Resulting Agency Comment Spec In Lab Christopher Dalal MD HEMATOLOGY ORDERABLE S [facility] [place] [address] * Phosphorus (09/05/2017 11:14 PM EST) Phosphorus 2.9 2.5 - 4.5 mg/dL [facility] Blood specimen (specimen) 09/05/2017 11:14 PM EST 09/05/2017 11:26 PM EST Narrative Resulting Agency Comment Spec In Lab Fran Gilliam MD CHEMISTRY ORDERABL ES Performing Organization Address [facility]/ZIP Co de Phone Number [facility] [place] [address] * (ABNORMAL) Calcium (09/05/2017 11:14 PM EST) Calcium 7.6(L) 8.5 - 10.5 mg/dL [facility] Blood specimen (specimen) 09/05/2017 11:14 PM EST 09/05/2017 11:26 PM EST Narrative Resulting Agency Comment Spec In Lab Fran Gilliam MD CHEMISTRY ORDERABL ES Performing Organization Address [facility] Co de Phone Number [facility] [place] [address] * Sodium (09/05/2017 11:14 PM EST) Sodium 142 135 - 145 mmol/L [facility] Blood specimen (specimen) 09/05/2017 11:14 PM EST 09/05/2017 11:26 PM EST Narrative Resulting Agency Comment Spec In Lab Fran Gilliam MD CHEMISTRY ORDERABL ES Performing Organization Address [facility] Co de Phone Number [facility] [place] [address] * (ABNORMAL) Albumin Level (09/05/2017 11:14 PM EST) Albumin 2.3(L) 3.2 - 5.2 gm/dL [facility] Blood specimen (specimen) 09/05/2017 11:14 PM EST 09/05/2017 11:26 PM EST Narrative Resulting Agency Comment Spec In Lab Genevieve Page MD CHEMISTRY ORDERABLES Performing Organization Address [facility] Co de Phone Number [facility] [place] [address] * (ABNORMAL) Albumin Level (09/05/2017 7:08 PM EST) Albumin 2.4(L) 3.2 - 5.2 gm/dL [facility] Blood specimen (specimen) Venous Draw / Unknown 09/05/2017 7:08 PM EST 09/05/2017 7:18 PM EST Narrative Resulting Agency Comment Spec In Lab Genevieve Page MD CHEMISTRY ORDERABLES Performing Organization Address [facility] Co de Phone Number [facility] [place] [address] * (ABNORMAL) Phosphorus (09/05/2017 7:08 PM EST) Phosphorus 2.0(L) 2.5 - 4.5 mg/dL [facility] Comment:result rechecked- Blood specimen (specimen) 09/05/2017 7:08 PM EST 09/05/2017 7:12 PM EST Narrative Resulting Agency Comment Spec In Lab Fran Gilliam MD CHEMISTRY ORDERABL ES Performing Organization Address [facility] Co de Phone Number [facility] [place] [address] * (ABNORMAL) Calcium (09/05/2017 7:08 PM EST) Calcium 7.4(L) 8.5 - 10.5 mg/dL [facility] Blood specimen (specimen) 09/05/2017 7:08 PM EST 09/05/2017 7:12 PM EST Narrative Resulting Agency Comment Spec In Lab Fran Gilliam MD CHEMISTRY ORDERABL ES Performing Organization Address City/[facility]/ZIP Co de Phone Number [facility] [place] [address] * Sodium (09/05/2017 7:08 PM EST) Sodium 145 135 - 145 mmol/L [facility] Blood specimen (specimen) 09/05/2017 7:08 PM EST 09/05/2017 7:12 PM EST Narrative Resulting Agency Comment Spec In Lab Fran Gilliam MD CHEMISTRY ORDERABL ES Performing Organization Address [facility] Co de Phone Number [facility] [place] [address] * 1,25-dihydroxycholecalciferol (09/05/2017 4:54 PM EST) Vit D 1,25 Dihydroxy (NOVEMBER) 57 18 - 64 pg/mL [facility] Comment: ADDITIONAL INFORMATION This test was developed and its performance characteristics determined by [facility] in a manner consistent with CLIA requirements. This test has not been cleared or approved by the U.S. Food and Drug Administration. Test Performed by: [facility] - [address] [address] Blood specimen (specimen) 09/05/2017 4:54 PM EST 09/08/2017 2:05 PM EST Narrative Resulting Agency Comment Spec In Lab Fran Gilliam MD LAB SEND OUT ORDER LYNDSEY Performing Organization Address [facility] Co de Phone Number [facility] [place] [address] * (ABNORMAL) Electrolytes panel (09/05/2017 3:06 PM EST) Sodium 146(H) 135 - 145 mmol/L [facility] Potassium 3.9 3.5 - 5.0 mmol/L [facility] Comment: Please note: ??Patients with WBC >100,000 may have falsely elevated Potassium levels. ??For accurate Potassium quantification in these patients send serum separator tube (gold top) for subsequent determinations. ??Contact the Clinical Chemistry Laboratory if there are any questions. Chloride 114(H) 98 - 107 mmol/L [facility] Carbon Dioxide 24 22 - 31 mmol/L [facility] Anion Gap 8 5 - 15 mmol/L [facility] Blood specimen (specimen) 09/05/2017 3:06 PM EST 09/05/2017 3:16 PM EST Narrative Resulting Agency Comment Spec In Lab Fran Gilliam MD CHEMISTRY ORDERABL ES Performing Organization Address [facility] de Phone Number [facility] [place] [address] * PTH (09/05/2017 11:29 AM EST) Parathyroid Hormone 29 15 - 65 pg/mL [facility] Blood specimen (specimen) 09/05/2017 11:29 AM EST 09/05/2017 11:48 AM EST Narrative Resulting Agency Comment Spec In Lab Fran Gilliam MD CHEMISTRY ORDERABL ES Performing Organization Address [facility] Co wy Phone Number [facility] [place] [address] * Vitamin D, 25-Hydroxy (09/05/2017 11:29 AM EST) Vitamin D Total 25 OH 34 30 - 100 ng/mL [facility] Comment: Deficient <10 ng/mL Insufficient 10 to 29 ng/mL Sufficient 30 to 100 ng/mL Potential Intoxication >100 ng/mL According to the [place] National Osteoporosis Foundation, Vitamin D concentrations >30 ng/mL are sufficient to protect bone health. ??The National Kidney Foundation has similarly stated that patients with Vitamin D concentrations <30ng/mL should be considered to be insufficient or deficient. http://Neocutis.com/nkf-guidelines http://[employer]/nejm-VitD The IDS iSYS Vitamin D Immunoassay detects both 25-OH Vitamin D2 and 25-OH Vitamin D3, but only a total Vitamin D concentration is reported. Blood specimen (specimen) 09/05/2017 11:29 AM EST 09/05/2017 1:31 PM EST Narrative Resulting Agency Comment Spec In Lab Fran Gilliam MD CHEMISTRY ORDERABL ES Performing Organization Address [facility] Co de Phone Number [facility] [place] [address] * (ABNORMAL) Electrolytes panel (09/05/2017 11:29 AM EST) Sodium 148(H) 135 - 145 mmol/L [facility] Potassium 4.1 3.5 - 5.0 mmol/L [facility] Comment: Please note: ??Patients with WBC >100,000 may have falsely elevated Potassium levels. ??For accurate Potassium quantification in these patients send serum separator tube (gold top) for subsequent determinations. ??Contact the Clinical Chemistry Laboratory if there are any questions. Chloride 113(H) 98 - 107 mmol/L [facility] Carbon Dioxide 24 22 - 31 mmol/L [facility] Anion Gap 11 5 - 15 mmol/L [facility] Blood specimen (specimen) 09/05/2017 11:29 AM EST 09/05/2017 11:48 AM EST Narrative Resulting Agency Comment Spec In Lab Juliet Medeiros APRN CHEMISTRY ORDERABLES Performing Organization Address [facility] Co de Phone Number [facility] [place] [address] * (ABNORMAL) Phosphorus (09/05/2017 4:16 AM EST) Phosphorus 1.1(Critic al) 2.5 - 4.5 mg/dL [facility] Comment:Called by: MOISES, Read back by: ADRIANE FINLEY, Date/Time:09/05/17 05:43. Blood specimen (specimen) 09/05/2017 4:16 AM EST 09/05/2017 4:52 AM EST Narrative Resulting Agency Comment Spec In Lab Juliet Medeiros APRN CHEMISTRY ORDERABLES [facility] [place] [address] * (ABNORMAL) Differential, Automated (09/05/2017 2:35 AM EST) Neutrophil % 84.1 % [facility] Neutrophil Absolute 7.20(H) 1.70 - 6.10 x10(3)/ L [facility] Lymph % 5.0 % [facility] Lymphocytes Abs 0.4(L) 0.9 - 3.2 x10(3)/ L [facility] Monocyte % 9.4 % [facility] Monocyte Abs 0.8 0.3 - 0.9 x10(3)/ L [facility] Eos % 0.3 % [facility] Eosinophils Abs 0.0 0.0 - 0.4 x10(3)/ L [facility] Basophil % 0.2 % [facility] Baso Absolute 0.0 0.0 - 0.1 x10(3)/ L [facility] Immature Gran % 1.00 % [facility] Comment: Immature granulocytes(IG's)percentage and absolute count will include metamyelocytes, myelocytes, and promyelocytes. Blood smears from CBCs yielding IG's will be scanned manually for concordance. If this scan disagrees with the automated IG or if promyelocytes are noted, a manual differential will be performed. Immature Gran Absolute 0.09(H) 0.00 - 0.04 x10(3)/mc L [facility] Blood specimen (specimen) 09/05/2017 2:35 AM EST 09/05/2017 2:42 AM EST Narrative Resulting Agency Comment Spec In Lab Christopher Dalal MD HEMATOLOGY ORDERABLE S [facility] [place] [address] * (ABNORMAL) Hemogram (09/05/2017 2:35 AM EST) White Blood Cell 8.6 4.0 - 9.5 x10(3)/mc L [facility] Red Blood Cell 3.98(L) 4.58 - 5.54 x10(6)/mc L [facility] Hemoglobin 10.9(L) 13.7 - 16.5 gm/dL [facility] Hematocrit 31.5(L) 40.5 - 48.5 % [facility] Mean Cell Volume 79.1(L) 82.9 - 93.1 [facility] Mean Cell Hemoglobin 27.4(L) 27.5 - 32.1 pg [facility] Mean Cell Hemoglobin Concentration 34.6 32.0 - 35.7 gm/dL [facility] Platelet 169 145 - 357 x10(3)/mc L [facility] RDW Standard Deviation 41.2 36.0 - 45.0 [facility] RDW coefficient of variation 14.2(H) 11.4 - 13.8 % [facility] Mean Platelet Volume 10.0 7.6 - 12.9 [facility] NRBC% auto 0.0 % [facility] NRBC Absolute 0.000 0.000 - 0.000 x10(3)/mc L [facility] Blood specimen (specimen) 09/05/2017 2:35 AM EST 09/05/2017 2:42 AM EST Narrative Resulting Agency Comment Spec In Lab Christopher Dalal MD HEMATOLOGY ORDERABLE S [facility] [place] [address] * (ABNORMAL) Basic Metabolic Panel (non-fasting) (09/05/2017 2:35 AM EST) Glucose 203(H) 65 - 199 mg/dL [facility] Comment:Diabetes: >=200 mg/d L plus symptoms Blood Urea Nitrogen 8(L) 10 - 20 mg/dL [facility] Creatinine 0.85 0.80 - 1.50 mg/dL [facility] Sodium 148(H) 135 - 145 mmol/L [facility] Comment:result rechecked-imm Potassium 4.1 3.5 - 5.0 mmol/L [facility] Comment: Please note: ??Patients with WBC >100,000 may have falsely elevated Potassium levels. ??For accurate Potassium quantification in these patients send serum separator tube (gold top) for subsequent determinations. ??Contact the Clinical Chemistry Laboratory if there are any questions. Chloride 112(H) 98 - 107 mmol/L [facility] Comment:result rechecked-imm Carbon Dioxide 23 22 - 31 mmol/L [facility] Anion Gap 13 5 - 15 mmol/L [facility] Calcium 7.8(L) 8.5 - 10.5 mg/dL [facility] Est Glomerular Filtration Rate >60 >=60 [facility] Comment: The reported eGFR should be multiplied by 1.2 for patients. The MDRD is not an appropriate measure of renal function for patients with body mass extremes or in patients with acute kidney failure. http://Neocutis.com/DHnkdep http://Neocutis.com/DHMCnkf Blood specimen (specimen) 09/05/2017 2:35 AM EST 09/05/2017 2:42 AM EST Narrative Resulting Agency Comment Spec In Lab Fran Gilliam MD CHEMISTRY ORDERABL ES [facility] [place] [address] * Magnesium (09/05/2017 2:35 AM EST) Magnesium 0.80 0.69 - 1.07 mmol/L [facility] Blood specimen (specimen) 09/05/2017 2:35 AM EST 09/05/2017 2:42 AM EST Narrative Resulting Agency Comment Spec In Lab Juliet Medeiros APRN CHEMISTRY ORDERABLES Performing Organization Address [facility] de Phone Number [facility] [place] [address] * EKG 12 Lead (09/04/2017 10:30 PM EST) Ventricular rate 143 BPM MUSE SYSTEM Atrial Rate 143 BPM MUSE SYSTEM P-R Interval 130 ms MUSE SYSTEM QRS Duration 78 ms MUSE SYSTEM Q-T Interval 278 ms MUSE SYSTEM QTC Calculated (Bezet) 429 ms MUSE SYSTEM Calculated P [place] 34 degrees MUSE SYSTEM Calculated R [place] 48 degrees MUSE SYSTEM Calculated T [place] 45 degrees MUSE SYSTEM INTERPRETATION Sinus tachycardia Nonspecific ST abnormality Abnormal ECG No previous ECGs available Confirmed by MD Scottie, Sally ([id number]) on 09/05/2017 3:49:31 PM MUSE SYSTEM 09/04/2017 10:3 0 PM EST 09/05/2017 3:49 PM EST Juliet Medeiros APRN ECG ORDERABLES Performing Organization Address [facility] Phone Number MUSE SYSTEM * (ABNORMAL) Electrolytes panel (09/04/2017 7:23 PM EST) Sodium 137 135 - 145 mmol/L [facility] Potassium 5.1(H) 3.5 - 5.0 mmol/L [facility] Comment: Please note: ??Patients with WBC >100,000 may have falsely elevated Potassium levels. ??For accurate Potassium quantification in these patients send serum separator tube (gold top) for subsequent determinations. ??Contact the Clinical Chemistry Laboratory if there are any questions. Chloride 102 98 - 107 mmol/L [facility] Carbon Dioxide 23 22 - 31 mmol/L [facility] Anion Gap 12 5 - 15 mmol/L [facility] Blood specimen (specimen) 09/04/2017 7:23 PM EST 09/04/2017 7:27 PM EST Narrative Resulting Agency Comment Spec In Lab Fran Gilliam MD CHEMISTRY ORDERABL ES Performing Organization Address [facility] [place] [address] * POCT Glucose (09/04/2017 7:00 PM EST) [facility] Glucose, POC 132 65 - 199 mg/dL [facility] Comment: Supplemental ranges: <140 mg/dL before meals <180 mg/dL all other times of the day Blood specimen (specimen) 09/04/2017 7:00 PM EST 09/04/2017 7:00 PM EST Fran Gilliam MD POINT OF CARE TEST ORDERABLES Performing Organization Address [facility] Co de Phone Number [facility] [place] [address] * (ABNORMAL) Differential, Automated (09/04/2017 3:49 PM EST) [facility] Neutrophil % 86.3 % [facility] Neutrophil Absolute 7.08(H) 1.70 - 6.10 x10(3)/mc L [facility] Lymph % 5.2 % [facility] Lymphocytes Abs 0.4(L) 0.9 - 3.2 x10(3)/mc L [facility] Monocyte % 6.2 % [facility] Monocyte Abs 0.5 0.3 - 0.9 x10(3)/mc L [facility] Eos % 1.2 % [facility] Eosinophils Abs 0.1 0.0 - 0.4 x10(3)/mc L [facility] Basophil % 0.1 % [facility] Baso Absolute 0.0 0.0 - 0.1 x10(3)/mc L [facility] Immature Gran % 1.00 % [facility] Comment: Immature granulocytes(IG's)percentage and absolute [...] Lab Dario Chavez MD HEMATOLOGY ORDERABLE S [facility] [place] [address] * (ABNORMAL) Hemogram (09/04/2017 3:49 PM EST) White Blood Cell 8.2 4.0 - 9.5 x10(3)/[facility] Red Blood Cell 4.05(L) 4.58 - 5.54 x10(6)/[facility] Hemoglobin 11.1(L) 13.7 - 16.5 gm/dL [facility] Hematocrit 33.0(L) 40.5 - 48.5 % [facility] Mean Cell Volume 81.5(L) 82.9 - 93.1 fL [facility] Mean Cell Hemoglobin 27.4(L) 27.5 - 32.1 pg [facility] Mean Cell Hemoglobin Concentration 33.6 32.0 - 35.7 gm/dL [facility] Platelet 118(L) 145 - 357 x10(3)/[facility] RDW Standard Deviation 41.2 36.0 - 45.0 fL [facility] RDW coefficient of variation 14.0(H) 11.4 - 13.8 % [facility] Mean Platelet Volume 9.9 7.6 - 12.9 fL [facility] NRBC% auto 0.0 % [facility] NRBC Absolute 0.000 0.000 - 0.000 x10(3)/mc L [facility] Blood specimen (specimen) 09/04/2017 3:49 PM EST 09/04/2017 3:59 PM EST Narrative Resulting Agency Comment Spec In Lab Dario Chavez MD HEMATOLOGY ORDERABLE S Performing Organization Address [facility] Co de Phone Number [facility] [place] [address] * (ABNORMAL) Electrolytes panel (09/04/2017 3:49 PM EST) Sodium 129(L) 135 - 145 mmol/L [facility] Potassium 4.4 3.5 - 5.0 mmol/L [facility] Comment: Please note: ??Patients with WBC >100,000 may have falsely elevated Potassium levels. ??For accurate Potassium quantification in these patients send serum separator tube (gold top) for subsequent determinations. ??Contact the Clinical Chemistry Laboratory if there are any questions. Chloride 97(L) 98 - 107 mmol/L [facility] Carbon Dioxide 22 22 - 31 mmol/L [facility] Anion Gap 10 5 - 15 mmol/L [facility] Blood specimen (specimen) 09/04/2017 3:49 PM EST 09/04/2017 3:59 PM EST Narrative Resulting Agency Comment Spec In Lab Fran Gilliam MD CHEMISTRY ORDERABL ES Performing Organization Address [facility] Co de Phone Number [facility] [place] [address] * (ABNORMAL) Hemoglobin and Hematocrit, blood (09/04/2017 3:49 PM EST) Hemoglobin 11.0(L) 13.7 - 16.5 gm/dL [facility] Hematocrit 33.3(L) 40.5 - 48.5 % [facility] Blood specimen (specimen) 09/04/2017 3:49 PM EST 09/04/2017 3:59 PM EST Narrative Resulting Agency Comment Spec In Lab Fran Gilliam MD HEMATOLOGY ORDERAB LES [facility] [place] [address] * XR Pelvis Judet or In Out [...] left ischial and acetabular fracture with multiple [id number] constructs. Tubing that could represent a surgical [...] described left ischial and acetabular fracture with [id number] constructs. Tubing that could represent a surgical [...] not need a radiologist interpretation. ?? Fran MOTTAG FLUORO ORDERAB LES Performing Organization Address City/[facility] Co de Phone Number [place], [place] * ABORH Recheck Status (09/04/2017 11:15 AM EST) ABORH Type Recheck Completed [facility] Blood specimen (specimen) 09/04/2017 11:15 AM EST 09/04/2017 11:28 AM EST Narrative Resulting Agency Comment Spec In Lab Amy Lance MD BLOOD BANK LAB ORDER LYNDSEY Performing Organization Address [facility] Co de Phone Number [facility] [place] [address] * Antibody screen (09/04/2017 11:15 AM EST) Ab Screen Interp Negative [facility] Expires at [id number] on: 09/07/2017 [facility] Blood specimen (specimen) 09/04/2017 11:15 AM EST 09/04/2017 11:28 AM EST Narrative Resulting Agency Comment Spec In Lab Amy Lance MD BLOOD BANK LAB ORDER LYNDSEY Performing Organization Address City/[facility]/ZIP Co de Phone Number [facility] [place] [address] * ABO/Rh Typing (09/04/2017 11:15 AM EST) ABORH Type O Pos [facility] Blood specimen (specimen) 09/04/2017 11:15 AM EST 09/04/2017 11:28 AM EST Narrative Resulting Agency Comment Spec In Lab Amy Lance MD BLOOD BANK LAB ORDER LYNDSEY [facility] [place] [address] * (ABNORMAL) Differential, Automated (09/04/2017 11:15 AM EST) Neutrophil % 72.7 % [facility] Neutrophil Absolute 10.24(H) 1.70 - 6.10 x10(3)/mc L [facility] Lymph % 11.3 % [facility] Lymphocytes Abs 1.6 0.9 - 3.2 x10(3)/mc L [facility] Monocyte % 7.5 % [facility] Monocyte Abs 1.1(H) 0.3 - 0.9 x10(3)/mc L [facility] Eos % 7.5 % [facility] Eosinophils Abs 1.1(H) 0.0 - 0.4 x10(3)/mc L [facility] Basophil % 0.3 % [facility] Baso Absolute 0.0 0.0 - 0.1 x10(3)/mc L [facility] Immature Gran % 0.70 % [facility] Comment: Immature granulocytes(IG's)percentage and absolute count will include metamyelocytes, myelocytes, and promyelocytes. Blood smears from CBCs yielding IG's will be scanned manually for concordance. If this scan disagrees with the automated IG or if promyelocytes are noted, a manual differential will be performed. Immature Gran Absolute 0.10(H) 0.00 - 0.04 x10(3)/ L [facility] Blood specimen (specimen) 09/04/2017 11:15 AM EST 09/04/2017 11:28 AM EST Narrative Resulting Agency Comment Spec In Lab Amy Lance MD HEMATOLOGY ORDERABLE S [facility] [place] [address] * (ABNORMAL) Hemogram (09/04/2017 11:15 AM EST) White Blood Cell 14.1(H) 4.0 - 9.5 x10(3)/ L [facility] Red Blood Cell 3.37(L) 4.58 - 5.54 x10(6)/ L [facility] Hemoglobin 9.3(L) 13.7 - 16.5 gm/dL [facility] Comment: This result has been called to SHEKHAR OLIVEIRA by Crista Hunter on 09 04 2017 at 1137, and has been read back. Hematocrit 26.7(L) 40.5 - 48.5 % [facility] Comment: This result has been called to SHEKHAR OLIVEIRA by Crista Hunter on 09 04 2017 at 1137, and has been read back. Mean Cell Volume 79.2(L) 82.9 - 93.1 fL [facility] Mean Cell Hemoglobin 27.6 27.5 - 32.1 pg [facility] Mean Cell Hemoglobin Concentration 34.8 32.0 - 35.7 gm/dL [facility] Platelet 193 145 - 357 x10(3)/mc L [facility] RDW Standard Deviation 41.5 36.0 - 45.0 [facility] RDW coefficient of variation 14.3(H) 11.4 - 13.8 % [facility] Mean Platelet Volume 10.0 7.6 - 12.9 [facility] NRBC% auto 0.0 % [facility] NRBC Absolute 0.000 0.000 - 0.000 x10(3)/mc L [facility] Blood specimen (specimen) 09/04/2017 11:15 AM EST 09/04/2017 11:28 AM EST Narrative Resulting Agency Comment Spec In Lab Amy Lance MD HEMATOLOGY ORDERABLE S Performing Organization Address [facility] [place] [address] * Prepare RBC (09/04/2017 11:00 AM EST) Dispensed? Yes [facility] Blood specimen (specimen) 09/04/2017 11:00 AM EST 09/04/2017 10:58 AM EST Fran Gilliam MD BLOOD BANK PRODUCT ORDERABLES Performing Organization Address [facility] Co de Phone Number [facility] [place] [address] * (ABNORMAL) Differential, Automated (09/04/2017 3:58 AM EST) Neutrophil % 75.8 % [facility] Neutrophil Absolute 8.00(H) 1.70 - 6.10 x10(3)/mc L [facility] Lymph % 9.5 % [facility] Lymphocytes Abs 1.0 0.9 - 3.2 x10(3)/mc L [facility] Monocyte % 7.7 % [facility] Monocyte Abs 0.8 0.3 - 0.9 x10(3)/mc L [facility] Eos % 5.9 % [facility] Eosinophils Abs 0.6(H) 0.0 - 0.4 x10(3)/mc L [facility] Basophil % 0.4 % [facility] Baso Absolute 0.0 0.0 - 0.1 x10(3)/mc L [facility] Immature Gran % 0.70 % [facility] Comment: Immature granulocytes(IG's)percentage and absolute count will include metamyelocytes, myelocytes, and promyelocytes. Blood smears from CBCs yielding IG's will be scanned manually for concordance. If this scan disagrees with the automated IG or if promyelocytes are noted, a manual differential will be performed. Immature Gran Absolute 0.07(H) 0.00 - 0.04 x10(3)/[facility] Blood specimen (specimen) 09/04/2017 3:58 AM EST 09/04/2017 4:05 AM EST Narrative Resulting Agency Comment Spec In Lab Christopher Dalal MD HEMATOLOGY ORDERABLE S [facility] [place] [address] * (ABNORMAL) Hemogram (09/04/2017 3:58 AM EST) White Blood Cell 10.5(H) 4.0 - 9.5 x10(3)/[facility] Red Blood Cell 4.72 4.58 - 5.54 x10(6)/[facility] Hemoglobin 12.4(L) 13.7 - 16.5 gm/dL [facility] Hematocrit 37.2(L) 40.5 - 48.5 % [facility] Mean Cell Volume 78.8(L) 82.9 - 93.1 fL [facility] Mean Cell Hemoglobin 26.3(L) 27.5 - 32.1 pg [facility] Mean Cell Hemoglobin Concentration 33.3 32.0 - 35.7 gm/dL [facility] Platelet 142(L) 145 - 357 x10(3)/[facility] LABORATORY RDW Standard Deviation 39.5 36.0 - 45.0 fL [facility] RDW coefficient of variation 13.8 11.4 - 13.8 % [facility] Mean Platelet Volume 9.9 7.6 - 12.9 fL [facility] NRBC% auto 0.0 % [facility] NRBC Absolute 0.000 0.000 - 0.000 x10(3)/mc L [facility] Blood specimen (specimen) 09/04/2017 3:58 AM EST 09/04/2017 4:05 AM EST Narrative Resulting Agency Comment Spec In Lab Christopher Dalal MD HEMATOLOGY ORDERABLE S [facility] [place] [address] * (ABNORMAL) Basic Metabolic Panel (non-fasting) (09/04/2017 3:58 AM EST) Glucose 118 65 - 199 mg/dL [facility] Comment:Diabetes: >=200 mg/d L plus symptoms Blood Urea Nitrogen 12 10 - 20 mg/dL [facility] Creatinine 0.73(L) 0.80 - 1.50 mg/dL [facility] Sodium 128(L) 135 - 145 mmol/L [facility] Potassium 4.1 3.5 - 5.0 mmol/L [facility] Comment: Please note: ??Patients with WBC >100,000 may have falsely elevated Potassium levels. ??For accurate Potassium quantification in these patients send serum separator tube (gold top) for subsequent determinations. ??Contact the Clinical Chemistry Laboratory if there are any questions. Chloride 95(L) 98 - 107 mmol/L [facility] Carbon Dioxide 22 22 - 31 mmol/L [facility] Anion Gap 11 5 - 15 mmol/L [facility] Calcium 8.0(L) 8.5 - 10.5 mg/dL [facility] Est Glomerular Filtration Rate >60 >=60 [facility] Comment: The reported eGFR should be multiplied by 1.2 for patients. The MDRD is not an appropriate measure of renal function for patients with body mass extremes or in patients with acute kidney failure. http://[employer]/DHnkdep http://[employer]/DHMCnkf Blood specimen (specimen) 09/04/2017 3:58 AM EST 09/04/2017 4:05 AM EST Narrative Resulting Agency Comment Spec In Lab Fran Gilliam MD CHEMISTRY ORDERABL ES Performing Organization Address [facility] Co de Phone Number [facility] [place] [place] [address] * (ABNORMAL) Hepatic Function Panel (09/04/2017 3:58 AM EST) [facility] Protein, Total 5.9(L) 6.1 - 8.0 gm/dL [facility] Albumin 3.3 3.2 - 5.2 gm/dL [facility] Aspartate Aminotransferase 23 0 - 39 unit/L [facility] Alanine Aminotransferase 31 0 - 55 unit/L [facility] Alkaline Phosphatase 75 40 - 120 unit/L [facility] Bilirubin, Total 0.5 0.2 - 1.3 mg/dL [facility] Bilirubin, Direct 0.1 0.0 - 0.3 mg/dL [facility] Blood specimen (specimen) 09/04/2017 3:58 AM EST 09/04/2017 4:05 AM EST Narrative Resulting Agency Comment Spec In Lab Fran Gilliam MD CHEMISTRY ORDERABL ES Performing Organization Address [facility] Co de Phone Number [facility] [place] [address] * (ABNORMAL) Testosterone, total and free (09/04/2017 3:58 AM EST) [facility] Testo Total 84(L) 250 - 1100 ng/dL [facility] Comment: For more information on this test, go to http://education.Tout[employer].com/faq/ TotalTestosteroneLCMSMS This test was developed and its analytical performance characteristics have been determined by [employer], [place]. It has not been cleared or approved by the U.S. Food and Drug Administration. This assay has been validated pursuant to the CLIA regulations and is used for clinical purposes. Testo Free (NOVEMBER) 11.4(L) 35.0 - 155.0 pg/mL [facility] Comment: This test was developed and its analytical performance characteristics have been determined by [employer] [place], [place]. It has not been cleared or approved by the U.S. Food and Drug Administration. This assay has been validated pursuant to the CLIA regulations and is used for clinical purposes. Test Performed by [facility], [facility], [address] [place] [address] Hilton Mckeon M.D., Ph.D., Director of Laboratories , CLIA [id number] Blood specimen (specimen) 09/04/2017 3:58 AM EST 09/04/2017 9:36 AM EST Narrative Resulting Agency Comment Spec In Lab Christopher Dalal MD LAB SEND OUT ORDERAB LES [facility] [place] [address] * SCAN DOC: IMPLANTABLE DEVICES (09/04/2017 12:00 AM EST) Narrative 09/04/2017 12:00 AM EST Ordered by an unspecified provider. Scanning Provider MEDIA MGR SCAN EXT O RDR/RSLT * SCAN DOC: INDUSTRIAL SPRAYPAINTER (09/04/2017 12:00 AM EST) Anatomical Region Laterality Modality Other Narrative 09/04/2017 12:00 AM EST Ordered by an unspecified provider. Scanning Provider MEDIA MGR SCAN EXT O RDR/RSLT * (ABNORMAL) Urinalysis with reflex Culture (09/03/2017 9:04 PM EST) Glucose, Urine Dipstick Negative Negative mg/dL [facility] Protein, Urine Dipstick Negative Negative mg/dL [facility] Bilirubin, Urine Dipstick Negative Negative mg/dL [facility] Comment: Clinical correlation required for positive Urine Bilirubin results as false positive may occur with some drugs and drug related products. If a false positive is suspected a serum total bilirubin should be considered if clinically indicated. Urobilinogen, Urine Dipstick >=4.0(A) Normal mg/dL [facility] pH, Urn (dipstick) 7.0 5.0 - 8.0 [facility] Blood, Urine Dipstick Negative Negative mg/dL [facility] Ketone, Urine Dipstick Negative Negative mg/dL [facility] Nitrite, Urine Dipstick Negative Negative [facility] Leukocytes, Urine Dipstick Negative Negative [facility] Appearance, Urine Dipstick Clear Clear [facility] Specific [place] Urine Automated 1.020 1.002 - 1.030 [facility] Color, Urine Dipstick Yellow Yellow [facility] Reflex to Culture No [facility] Urine specimen obtained via indwelling urinary catheter (specimen) 09/03/2017 9:04 PM EST 09/03/2017 9:19 PM EST Narrative Resulting Agency Comment Spec In Lab Fran Gilliam MD URINE ORDERABLES [facility] [place] [address] * Rapid Influenza A/B PCR (09/03/2017 7:59 PM EST) Influenza A PCR Not Detected Not Detected [facility] Influenza B PCR Not Detected Not Detected [facility] Resp PCR Source [employer] AGENT Swab [facility] Nasopharyngeal swab (specimen) 09/03/2017 7:59 PM EST 09/03/2017 8:12 PM EST Narrative Resulting Agency Comment Spec In Lab Fran Gilliam MD MICROBIOLOGY - GEN ERAL ORDERABLES Performing Organization Address City/[facility]/ZIP Co de Phone Number [facility] [place] [address] * Blood culture (09/03/2017 6:47 PM EST) Blood Culture No growth at 5 days. [facility] Blood specimen (specimen) 09/03/2017 6:47 PM EST 09/03/2017 7:08 PM EST Comment:R HAND Narrative Resulting Agency Comment Spec In Lab Fran Gilliam MD MICROBIOLOGY - BLO OD ORDERABLES Performing Organization Address [facility] Co de Phone Number [facility] [place] [address] * (ABNORMAL) Lactate, whole blood, send to lab (Leb/CGP) (09/03/2017 5:56 PM EST) Lactate WB 3.7(H) 0.5 - 2.2 mmol/L [facility] Blood specimen (specimen) 09/03/2017 5:56 PM EST 09/03/2017 6:03 PM EST Narrative Resulting Agency Comment Spec In Lab Fran Gilliam MD CHEMISTRY ORDERABL ES Performing Organization Address [facility] Co de Phone Number [facility] [place] [address] * Blood culture (09/03/2017 5:56 PM EST) Blood Culture No growth at 5 days. [facility] Blood specimen (specimen) 09/03/2017 5:56 PM EST 09/03/2017 6:28 PM EST Narrative Resulting Agency Comment Spec In Lab Fran Gilliam MD MICROBIOLOGY - BLO OD ORDERABLES Performing Organization Address City/[facility]/ZIP Co de Phone Number [facility] [place] [address] * CT Pelvis MSK (Bones Joints Muscles)WO [...] at 09/03/2017 5:51 PM Fran Gilliam MD [facility] ORDERABLES * (ABNORMAL) Zonisamide level (09/03/2017 10:20 AM EST) Zonisamide Lvl (NOVEMBER) 3.7(L) 10 - 40 mcg/mL [facility] Comment: ADDITIONAL INFORMATION This test was developed and its performance characteristics determined by [facility] in a manner consistent with CLIA requirements. This test has not been cleared or approved by the U.S. Food and Drug Administration. Test Performed by: [facility] [address], [place] [address] Blood specimen (specimen) 09/03/2017 10:20 AM EST 09/03/2017 12:26 PM EST Narrative Resulting Agency Comment Spec In Lab Fran Gilliam MD LAB SEND OUT ORDER LYNDSEY [facility] [address] [place] [address] * XR Chest PA or AP 1 [...] Free T4 1.45 0.93 - 1.70 ng/dL [facility] Blood specimen (specimen) Venous Draw / Unknown 09/03/2017 6:22 AM EST 09/03/2017 6:35 AM EST Narrative Resulting Agency Comment Spec In Lab Fran Gilliam MD CHEMISTRY ORDERABL ES Performing Organization Address [facility] Co de Phone Number [facility] [address] * (ABNORMAL) TSH (09/03/2017 6:22 AM EST) Thyroid Stimulating Hormone 0.01(L) 0.27 - 4.20 mlU/ML [facility] Blood specimen (specimen) Venous Draw / Unknown 09/03/2017 6:22 AM EST 09/03/2017 6:35 AM EST Narrative Resulting Agency Comment Spec In Lab Fran Gilliam MD CHEMISTRY ORDERABL ES Performing Organization Address [facility]/ZIP Co de Phone Number [facility] [place] [address] * Basic Metabolic Panel (non-fasting) (09/03/2017 6:22 AM EST) Glucose 95 65 - 199 mg/dL [facility] Comment:Diabetes: >=200 mg/d L plus symptoms Blood Urea Nitrogen 10 10 - 20 mg/dL [facility] Creatinine 0.99 0.80 - 1.50 mg/dL [facility] Sodium 136 135 - 145 mmol/L [facility] Potassium 4.2 3.5 - 5.0 mmol/L [facility] Comment: Please note: ??Patients with WBC >100,000 may have falsely elevated Potassium levels. ??For accurate Potassium quantification in these patients send serum separator tube (gold top) for subsequent determinations. ??Contact the Clinical Chemistry Laboratory if there are any questions. Chloride 99 98 - 107 mmol/L [facility] Carbon Dioxide 26 22 - 31 mmol/L [facility] Anion Gap 11 5 - 15 mmol/L [facility] Calcium 8.8 8.5 - 10.5 mg/dL [facility] Est Glomerular Filtration Rate >60 >=60 [facility] Comment: The reported eGFR should be multiplied by 1.2 for patients. The MDRD is not an appropriate measure of renal function for patients with body mass extremes or in patients with acute kidney failure. http://Unifys[employer]/DHnkdep http://[employer]/DHMCnkf Blood specimen (specimen) 09/03/2017 6:22 AM EST 09/03/2017 6:29 AM EST Narrative Resulting Agency Comment Spec In Lab Christopher Dalal MD CHEMISTRY ORDERABLES [facility] [place] [address] * (ABNORMAL) Basic Metabolic Panel (non-fasting) (09/03/2017 1:54 AM EST) Glucose 90 65 - 199 mg/dL [facility] Comment:Diabetes: >=200 mg/d L plus symptoms Blood Urea Nitrogen 10 10 - 20 mg/dL [facility] Creatinine 1.01 0.80 - 1.50 mg/dL [facility] Sodium 139 135 - 145 mmol/L [facility] Potassium 3.7 3.5 - 5.0 mmol/L [facility] Comment: Please note: ??Patients with WBC >100,000 may have falsely elevated Potassium levels. ??For accurate Potassium quantification in these patients send serum separator tube (gold top) for subsequent determinations. ??Contact the Clinical Chemistry Laboratory if there are any questions. Chloride 102 98 - 107 mmol/L [facility] Carbon Dioxide 25 22 - 31 mmol/L [facility] Anion Gap 12 5 - 15 mmol/L [facility] Calcium 8.1(L) 8.5 - 10.5 mg/dL [facility] Est Glomerular Filtration Rate >60 >=60 [facility] Comment: The reported eGFR should be multiplied by 1.2 for patients. The MDRD is not an appropriate measure of renal function for patients with body mass extremes or in patients with acute kidney failure. http://[employer]if[employer]/DHnkdep http://Unif[employer]/DHMCnkf Blood specimen (specimen) 09/03/2017 1:54 AM EST 09/03/2017 2:02 AM EST Narrative Resulting Agency Comment Spec In Lab Christopher Dalal MD CHEMISTRY ORDERABLES [facility] [place] [address] * ABORH Recheck Status (09/03/2017 12:54 AM EST) ABORH Recheck Order Order Placed [facility] ABORH Type Recheck Complete [facility] Blood specimen (specimen) 09/03/2017 12:54 AM EST 09/03/2017 12:54 AM EST Narrative Resulting Agency Comment Spec In Lab Christopher Dalal MD BLOOD BANK LAB ORDER LYNDSEY [facility] [place] [address] * (ABNORMAL) Differential, Automated (09/03/2017 12:54 AM EST) Neutrophil % 72.4 % [facility] Neutrophil Absolute 6.59(H) 1.70 - 6.10 x10(3)/mc L [facility] Lymph % 11.7 % [facility] Lymphocytes Abs 1.1 0.9 - 3.2 x10(3)/mc L [facility] Monocyte % 8.9 % [facility] Monocyte Abs 0.8 0.3 - 0.9 x10(3)/mc L [facility] Eos % 5.3 % [facility] Eosinophils Abs 0.5(H) 0.0 - 0.4 x10(3)/ L [facility] Basophil % 0.6 % [facility] Baso Absolute 0.0 0.0 - 0.1 x10(3)/ L [facility] Immature Gran % 1.10 % [facility] Comment: Immature granulocytes(IG's)percentage and absolute count will include metamyelocytes, myelocytes, and promyelocytes. Blood smears from CBCs yielding IG's will be scanned manually for concordance. If this scan disagrees with the automated IG or if promyelocytes are noted, a manual differential will be performed. Immature Gran Absolute 0.10(H) 0.00 - 0.04 x10(3)/ L [facility] Blood specimen (specimen) 09/03/2017 12:54 AM EST 09/03/2017 12:58 AM EST Narrative Resulting Agency Comment Spec In Lab Christopher Dalal MD HEMATOLOGY ORDERABLE S Performing Organization Address City/State/[facility] Co de Phone Number [facility] [place] [address] * (ABNORMAL) Hemogram (09/03/2017 12:54 AM EST) White Blood Cell 9.1 4.0 - 9.5 x10(3)/ L [facility] Red Blood Cell 5.52 4.58 - 5.54 x10(6)/ L [facility] Hemoglobin 14.8 13.7 - 16.5 gm/dL [facility] Hematocrit 43.4 40.5 - 48.5 % [facility] Mean Cell Volume 78.6(L) 82.9 - 93.1 fL [facility] Mean Cell Hemoglobin 26.8(L) 27.5 - 32.1 pg [facility] Mean Cell Hemoglobin Concentration 34.1 32.0 - 35.7 gm/dL [facility] Platelet 156 145 - 357 x10(3)/mc L [facility] RDW Standard Deviation 41.1 36.0 - 45.0 fL [facility] RDW coefficient of variation 14.8(H) 11.4 - 13.8 % [facility] Mean Platelet Volume 11.6 7.6 - 12.9 fL [facility] NRBC% auto 0.0 % [facility] NRBC Absolute 0.000 0.000 - 0.000 x10(3)/mc L [facility] Blood specimen (specimen) 09/03/2017 12:54 AM EST 09/03/2017 12:58 AM EST Narrative Resulting Agency Comment Spec In Lab Christopher Dalal MD HEMATOLOGY ORDERABLE S [facility] [place] [address] * Antibody screen (09/03/2017 12:54 AM EST) Ab Screen Interp Negative [facility] Expires at [id number] on: 09/06/2017 [facility] Blood specimen (specimen) 09/03/2017 12:54 AM EST 09/03/2017 12:54 AM EST Narrative Resulting Agency Comment Spec In Lab Christopher Dalal MD BLOOD BANK LAB ORDER LYNDSEY Performing Organization Address City/[facility]/ZIP Co de Phone Number [facility] [place] [address] * ABO/Rh Typing (09/03/2017 12:54 AM EST) ABORH Type O Pos [facility] Blood specimen (specimen) 09/03/2017 12:54 AM EST 09/03/2017 12:54 AM EST Narrative Resulting Agency Comment Spec In Lab Christopher Dalal MD BLOOD BANK LAB ORDER LYNDSEY Performing Organization Address [facility] Co de Phone Number [facility] [place] [address] * APTT (09/03/2017 12:54 AM EST) Partial Thromboplastin Time 26 25 - 35 sec [facility] Comment: The recommended therapeutic range for full dose, unfractionated heparin at [facility] is 80 ? 114 seconds. The use of the anti-Xa (heparin) level rather than the PTT is recommended for monitoring anticoagulation intensity in critically ill patients receiving unfractionated heparin by continuous IV infusion. Blood specimen (specimen) 09/03/2017 12:54 AM EST 09/03/2017 12:58 AM EST Narrative Resulting Agency Comment Spec In Lab Christopher Dalal MD HEMATOLOGY ORDERABLE S Performing Organization Address [facility] Co de Phone Number [facility] [place] [address] * Prothrombin Time (09/03/2017 12:54 AM EST) Prothrombin Time 13.6 11.8 - 14.0 sec [facility] International Normalization Ratio 1.1 0.9 - 1.1 [facility] Comment: An INR <2.0 indicates [...] Lab Christopher Dalal MD HEMATOLOGY ORDERABLE S [facility] [place] [address] * Basic Metabolic Panel (non-fasting) (09/03/2017 12:54 AM EST) Glucose 84 65 - 199 mg/dL [facility] Comment:Diabetes: >=200 mg/d L plus symptoms Blood Urea Nitrogen 11 10 - 20 mg/dL [facility] Creatinine 0.97 0.80 - 1.50 mg/dL [facility] Sodium Not Perf 135 - 145 mmol/L [facility] Comment: Specimen hemolyzed. Called by: [facility], Read back by: Diana Reese, Date/Time:09/03/17 01:32. Potassium Not Perf 3.5 - 5.0 mmol/L [facility] Comment: Specimen hemolyzed. Called by: [facility], Read back by: Diana Reese, Date/Time:09/03/17 01:32. Please note: ??Patients with WBC >100,000 may have falsely elevated Potassium levels. ??For accurate Potassium quantification in these patients send serum separator tube (gold top) for subsequent determinations. ??Contact the Clinical Chemistry Laboratory if there are any questions. Chloride Not Perf 98 - 107 mmol/L [facility] Comment: Specimen hemolyzed. Called by: [facility], Read back by: Diana Reese, Date/Time:09/03/17 01:32. Carbon Dioxide Not Perf 22 - 31 mmol/L [facility] Comment: Specimen hemolyzed. Called by: [facility], Read back by: Diana Reese, Date/Time:09/03/17 01:32. Anion Gap Not Perf 5 - 15 mmol/L [facility] Comment: Specimen hemolyzed. Called by: [facility], Read back by: Diana Reese, Date/Time:09/03/17 01:32. Calcium Not Perf 8.5 - 10.5 [facility] Comment: Specimen hemolyzed. Called by: [facility], Read back by: Diana Reese, Date/Time:09/03/17 01:32. Est Glomerular Filtration Rate >60 >=60 [facility] Comment: The reported eGFR should be multiplied by 1.2 for patients. The MDRD is not an appropriate measure of renal function for patients with body mass extremes or in patients with acute kidney failure. http://Unifysquare/DHnkdep http://Unif[employer]/DHMCnkf Blood specimen (specimen) 09/03/2017 12:54 AM EST 09/03/2017 12:58 AM EST Narrative Resulting Agency Comment Spec In Lab Christopher Dalal MD CHEMISTRY ORDERABLES [facility] [place] [id number] * XR Knee 1-2 Views Left (Generic) [...] DAILY, First dose (after last modification) on [place] 11/30/17 at 1500, Until Discontinued, Maximum dose of acetaminophen is 4000 mg from all sources in 24 hours., Routine Given 03/12/2018 1:00 PM EDT 650 mg Given 03/12/2018 8:03 AM EDT 650 mg Given 03/11/2018 8:31 PM EDT 650 mg aspirin chewable tablet 81 mg 81 mg, Oral, DAILY, First dose (after last modification) on [place] 03/01/18 at 1545, Until Discontinued, Routine Given 03/12/2018 8:04 AM EDT 81 mg Given 03/11/2018 9:04 AM EDT 81 mg Given 03/10/2018 9:37 AM EDT 81 mg atorvastatin (LIPITOR) tablet 40 mg 40 mg, Oral, EVERY EVENING, First dose on [place] 03/01/18 at 1700, Until Discontinued, Routine Given [...] NIGHTLY, First dose (after last modification) on [facility] 11/17/17 at 2100, Until Discontinued, Routine Given [...] on 11/16/17 at 1400, Until Discontinued, Routine Given 03/12/2018 [...] Mady Recio, HEATHER)1300 (Given - Provider: Mady Recio RN) aspirin [...] Jean Baptiste RN) 1111 (Given - Provider: aVndana Jean Baptiste RN) 1234 (Given - Provider: aMdy Recio RN) hydrocortisone (CORTEF) tablet 20 mg [...] Hoff, HEATHER) 06 (Given - Provider: Latrice Hoff, HEATHER) melatonin tablet 9 mg 9 mg, Oral, NIGHTLY, First dose (after last modification) on Fri11/30/17 at 2000, Until Discontinued, Routine 2038 (Given - Provider: Latrice Hoff RN) 2026 (Given - Provider: Latrice Hoff RN) methyl salicylate-menthol (BENGAY) 15-10 % cream Topical (Top), 2 TIMES DAILY, First dose on 09/14/17 at 1200, Until Discontinued 942 (Given - Provider: Vandana Jean Baptiste RN)2054 (Not Given - Provider: Latirce Hoff RN - Reason: Patient/family refused) 09 [...] Baptiste RN) 09 (Given - Provider: Vandana Jena Baptiste RN) 08 (Given - Provider: Mady Recio RN) pantoprazole (PROTONIX) tablet 40 mg 40 mg, Oral, EVERY MORNING BEFORE BREAKFAST, First dose on Fri09/03/17 at 0730, Until Discontinued, DO NOT CRUSH OR OPEN 0647 (Given - Provider: Mady Foss RN) 0904 (Given - Provider: Vandana Jean Baptiste, HEATHER) 0804 (Given - Provider: Mady Recio, HEATHER) [...] RN)2026 (Given - Provider: Latrice Hoff RN) 08 (Given - Provider: Mady Recio, HEATHER) testosterone [...] Jean Baptiste RN)2035 (Given - Provider: Latrice Hoff RN) 1015 (Given - Provider: Mady Recio, HEATHER)1235 (Given - Provider: Mady Recio RN - Comment: per [facility] communication) simethicone (MYLICON) chewable tablet 40 mg 40 mg, Oral, EVERY 6 HOURS PRN, Starting on [place] 10/23/17 at 1934, Until [place] 03/12/18 at 1526, Cramping, Routine documented in this encounter Care Teams Home Management Supervisor Relationship Specialty Start Date End Date Lc Venegas PA [address] [place] [address] PCP - General General Internal Medicine 09/03/17 documented as of this encounter
--- OUTSIDE RECORDS SUMMARY | 2024-07-30 03:14 | XMS_ITS | Encounter Summary ---
Author Organization Formerly [facility], 1928–[address] [place] [address] Care Team Providers Care Satellite Installation Technician Name Role Phone CinthyaeseLc Primary Care Provider [phone] Reason for Visit * Auth/Cert Specialty Diagnoses / Procedures Referred By Duyen t Referred To Contact Diagnoses Acetabular fracture Left acetabulum fracture Procedures @OPEN TREATMENT, ACETABULAR FX (WRVU 25.41) Referral ID Status Reason Start Date Expiration Date Visits Re quested Visits Authorized [id number] 1 1 Encounter Details Date Type Department Care Team (Late st Contact Info) Description 10/20/2017 11:43 [place] [address] Asia Mota MD [facility] [place] [address] Marvin Vasquez CRNA Anesthesia Record Procedure Summary [...] Details Placement Removal Incision 09/04/17; 1005; hip; 06/15/18; 0927 09/04/17 1005 by Mohit Hawkins RN [...] 0939; metacarpal vein (top of hand), left; tkup-rwc-fnsyeh catheter system; 20 gauge; distraction, intradermal injection, [...] Mota MD - 10/21/2017 7:39 AM ED[place] [facility] [place]hesiology Post-procedure Note Patient: Miguel Angel Burgos Procedure Summary Date Anesthesia Start Anesthesia Stop Room / Location 10/20/[address] [facility] ADULT RADIOLOGY / [facility] [place] Procedure Diagnosis Surgeon Responsible Provider CT (N/A ) (Broken tooth) RESOURCE, ANESTHESIA-Asia Santiago MD All Anesthesia Providers: Anesthesiologist: Asia Mota MD DEBEADER: Echo Lema CRNA Most Recent Vitals: 10/20/17 [...] History: Procedure Laterality Date ??? PRO OPEN TELLER SUPERVISOR FIX ACETABULAR FX Left 09/04/2017 @OPEN TREATMENT, ACETABULAR FX (WRVU 25.41) performed by Amy Lance MD at [facility] MAIN OR Social History Substance [...] discussed with legal guardian. Plan discussed with DEBEADER. PAT Staff Note documented in this encounter [...] /hr documented in this encounter Care Teams Satellite Installation Technician Relationship Specialty Start Date End Date Lc Venegas PA [address] [place] [address] PCP - General General Internal Medicine 09/03/17 documented as of this encounter
--- OUTSIDE RECORDS SUMMARY | 2024-07-30 03:18 | XMS_ITS | Encounter Summary ---
Author Organization [facility] Address [facility] [place] [address] Care Team Providers Care Aegis Console Operator Track Name Role Phone Corin Skinner MD Primary Care Provider [phone] Encounter Details Date Type Department Care Team (Latest Contact Info) Description 09/02/2017 12:05 AM EST - 09/02/2017 12:09 AM [facility] Hospital Encounter Radiology Library at [facility] [place] [address] Neo Gar MD Discharge Disposition: Home Social [...] MD IMG FILM LIBRARY OR DERABLES [place], [place] documented in this encounter Visit Diagnoses Not on filedocumented in this encounter Care Teams Aegis Console Operator Track Relationship Specialty Start Date End Date Corin Skinner MD PCP - General 05/29/10 09/02/17 documented as of this encounter
--- OUTSIDE RECORDS SUMMARY | 2024-07-30 03:18 | XMS_ITS | Encounter Summary ---
Author Organization [facility] Address [facility] [place] [address] Care Team Providers Care Motor Builder Winder Name Role Phone Corin Skinner MD Primary Care Provider Encounter Details Date Type Department Care Team (Latest Contact Info) Description 09/02/2017 12:10 AM EST - 09/02/2017 12:14 AM EST Hospital Encounter Radiology Library at [facility] [place] [address] Neo Gar MD Discharge Disposition: Home Social [...] MD IMG FILM LIBRARY OR DERABLES [place], [place] documented in this encounter Visit Diagnoses Not on filedocumented in this encounter Care Teams Motor Builder Winder Relationship Specialty Start Date End Date Corin Skinner MD PCP - General 05/29/10 09/02/17 documented as of this encounter
--- OUTSIDE RECORDS SUMMARY | 2024-07-30 03:18 | XMS_ITS | Encounter Summary ---
Author Organization [facility] Address [facility] [place] [address] Care Team Providers Care Carpenter Maintenance Name Role Phone Corin Skinner MD Primary Care Provider [phone] Encounter Details Date Type Department Care Team (Latest Contact Info) Description 09/02/2017 12:20 AM EST - 09/02/2017 9:22 PM EST Hospital Encounter Radiology Library at [facility] [place] [address] Neo Gar MD Discharge Disposition: Home Social [...] MD IMG FILM LIBRARY OR DERABLES [place], [place] documented in this encounter Visit Diagnoses Not on filedocumented in this encounter Care Teams Carpenter Maintenance Relationship Specialty Start Date End Date Corin Skinner MD PCP - General 05/29/10 09/02/17 documented as of this encounter
--- OUTSIDE RECORDS SUMMARY | 2024-07-30 03:18 | XMS_ITS | Encounter Summary ---
[place] [address] Care Team Providers Care Rustic Fence Builder Name Role Phone CinthyaeseLc Primary Care Provider [phone] Reason for Visit * Auth/Cert Specialty Diagnoses / Procedures Referred By Duyen t Referred To Contact Diagnoses Acetabular fracture Left acetabulum fracture Procedures @OPEN TREATMENT, ACETABULAR FX (WRVU 25.41) Referral ID Status Reason Start Date Expiration Date Visits Re quested Visits Authorized [id number] 1 1 Encounter Details Date Type Department Care Team (Late st Contact Info) Description 09/04/2017 9:22 AM EST Anesthesia Event [place] [address] Delfino Chavez MD [facility] [place] [address] Irving Loja MD Anesthesia Record Procedure Summary [...] without issue. VSS. Full report given to DENTURE WAXER. Meds Name Total fentaNYL 100 mcg IV [...] 1500; median vein (underside of arm), right; krrk-sjz-dfupiu catheter system; 20 gauge; OSH FERRULER; 09/09/17; 1999 (pt pulled out. aware.) 09/02/17 1500 by Crista Baptiste NRP 09/09/171999 by Lori Corbin RN Urethral Catheter 09/02/17; 1500; indwelling single lumen catheter; 14; present on admission to this facility; drainage bag to dependent drainage; 09/10/17; 0000 09/02/17 1500 by Crista Baptiste NRP 09/10/17 by Pignatiello, Lori E, RN ETT Mask Ventilation: Adjunct (2); ETT Type: Cuffed, Oral; ETT Size: 7.5 mm; Mac Blade: 3; Notes: Asleep, Pre-O2, Cricoid Pressure, Stylette; Attempts: 1; Laryngoscopy Grade: 1; ETT Placement Verified By: Auscultation, Capnometry, Visual; Secured at Teeth: 22 cm; Inserted by: Cele Fabian CRNA; Removal Date: 09/04/17; Removal Time: 1257 09/04/17 0931 by Cele Carrington OCCUPATIONAL HYGIENIST 09/04/17 1257 by Delfino Chavez MD (RETIRED) Peripheral IV Line - Single Lumen 09/04/17; 0940; metacarpal vein (top of hand), left; ubvk-szl-rucxes catheter system; 16 gauge; MD Scott; 0; [...] Chavez MD - 09/04/2017 2:08 PM EST [facility] [place] Department of Anesthesiology Post-procedure Note Patient: Miguel Angel Burgos Procedure Summary Date Anesthesia Start Anesthesia Stop Room / Location 09/04/17 0922 1309 [facility] MAIN OR Procedure Diagnosis Surgeon Responsible Provider @OPEN TREATMENT, ACETABULAR FX (WRVU 25.41) (Left Pelvis); MODIFIER SMALL FRAGMENT SYNTHES (N/A ); MODIFIER PELVIC RECONSTRUCTION PLATE SYNTHES (N/A ); MODIFIER LARGE FRAGMENT SYSTEM SYNTHES (N/A ) (Left acetabulum fracture) Amy Lance MD Spence, Brian C, MD All Anesthesia Providers: Anesthesiologist: Delfino Chavez MD OCCUPATIONAL HYGIENIST: Cele Fabian CRNA Most Recent Vitals: 09/04/17 [...] discussed with legal guardian. Plan discussed with OCCUPATIONAL HYGIENIST. PAT Staff Note documented in this encounter [...] lactated Ringers infusion CONTINUOUS PRN, Starting on Joa Nn 09/04/17 at 0922, Until Jo Ann 09/04/17 [...] Units documented in this encounter Care Teams Rustic Fence Builder Relationship Specialty Start Date End Date Lc Venegas PA [address] [place] [address] PCP - General General Internal Medicine 09/03/17 documented as of this encounter
--- OUTSIDE RECORDS SUMMARY | 2024-07-30 03:18 | XMS_ITS | Encounter Summary ---
Author Organization [facility] Address [facility] [place] [place] [address] Care Team Providers Care Field Services Analyst Name Role Phone Lc Venegas Primary Care Provider [phone] Reason for Visit * Reason Comments Hospital Transfer [facility] * Auth/Cert Specialty Diagnoses / Procedures Referred By Duyen bui Referred To Contact Diagnoses Acetabular fracture Left acetabulum fracture Procedures @OPEN TREATMENT, ACETABULAR FX (WRVU 25.41) Referral ID Status Reason Start Date Expiration Date Visits Re quested Visits Authorized [id number] 1 1 Encounter Details Date Type Department Care Team (Late st Contact Info) Description 09/04/2017 9:58 AM EST - 09/04/2017 12:56 PM EST [place] [address] Amy Lance MD [facility] [address] [place] [address] @OPEN TREATMENT, ACETABULAR FX (WRVU 25.41) Social History Tobacco Use Types Packs/Day Years [...] level in 3 days after [place] [facility], if out of range, [facility]in[facility] for further instructions [...] MD): This is a 27 y.o. male halfway resident with a history of panhypopituitarism, DI, [...] over the phone, so she had his courtesy bus driver take him to the hospital. At [facility], when asked about pain he would point to his left knee. Ultimately, CT was performed which showed acute leftacetabular fracture and osteopenia. He received several doses of morphine, dilaudid, and ativan forpain and sedation prior to transfer. ?? He has not had a seizure for about 4 years. No recent med changes according to Bettina. Labs at [facility] remarkable for Na 132. In the ER [...] by orthopedics. Due to restrictions in his halfway environment, he could not return home to [...] ED to Hosp-Admission (Current) from 09/02/2017 in 1 [facility] Weight 98.4 kg (216 lb 14.4 oz) 1 03/05/2018 0912 BMI 31.39 1 02/27/2018 1914 # Fever During the week of 03/02, Miguel Anegl developed a fever to Tmax 102. Workup [...] to navigate stairs Questions: Vendor Name/Contact information: [facility] Bed (Outpatient) [EQ172 Custom] As directed Process Instructions: Scheduling Instructions: Comments: Semi-electric Hospital Bed- The patient has a medical condition which requires positioning of the body in ways not feasible with an ordinary bed and requires frequent changes in body position and/or has an immediate need for a change in body position. Questions: Vendor Name/Contact information: [facility] Wheelchair [EQ139 Custom] As directed Process Instructions: [...] wheelchair. Questions: Vendor Name/Contact information: Comment - [employer] Discharge References/Attachments: Discharge References/Attachments None Inpatient Provider Contact Information: For questions regarding this document or issues relating to this hospitalization on the Medical Service, please contact your inpatient physician through the [facility] Plant Pathology Teacher . Issues afterhours and on weekends will [...] tablet 3 03/11/2018 Diaper,Brief, Adult,Disposable Misc Daily 24/ as needed [...] is being brought by ambulance to [facility]. Pt did not have IV access. Pt AVS, discharge summary, and medication were sent to facility. Called facility to give report. * Lauren Gloria - 03/12/2018 1:25 PM EDT Patient was transported today [facility] at 1330 to [facility]. * Tricia Gerber RN - 03/12/2018 1:25 PM EDT Patient being discharged to [facility] today via ambulance. Spoke with sister Bettina- she was in agreement with plan. [facility] will be delivering all needed DME tomorrow morning apx. 9am. Process Steward has reviewed DME list with Asael at [facility] to determine what DME must be had today to ensure a safe transfer. It was determined the only have to item for today is the wheelchair. [facility] Ict Help Desk Technician has given approval for [facility] to provide one of ours until the one from [facility] arrives (Asael to coordinate return with financial underwriter). Bhakti Riojas from [facility] has picked up all meds and depends from pharmacy. Nursing staff has provided Bhakti with the testosterone gel, bed guillen and urinal. She also has hard copies of discharge summary and AVS. No other discharge needs have been identified. Tricia Gerber RN Case Paste Up Artist of Care Management [email or web address] Pager: [phone] * Tricia Gerber RN - 03/12/2018 1:25 PM EDT Received call from Bhakti Sanchesfeng at [facility] . Bhakti requests referral to: [facility] Health Agencies [facility]. PHONE: [phone] FAX: [phone] Patient lives at: [address] [place] [address] [address] [facility] [address] Phone [phone] Fax [phone] Expected date of discharge: 03-12-18. Referral routed to the [employer] for matching with agency/vendor and to provide any required information. Tricia Gerber RN Case Paste Up Artist of Care Management [email or web address] Pager: [phone] * Dario Gallegos MD - 03/12/2018 11:00 [...] spent >30 minutes (Day of Discharge Code 40601) involved in the final examination of the patient, discussion of the hospital stay, instructions for continuing care to all relevant caregivers, and preparation of discharge records, prescriptions and referral forms. Plans ? Discharge to [facility] ? Follow-up scheduled with pscychiatry ? Please see the Discharge Summary for complete details of any medication changes and additional plans. * Tricia Gerber RN - 03/12/2018 8:49 AM EDT Received voicemail from Bettina Mason (Guardian/sister). States she is aware that Miguel Angel will be transferred to [facility] Address [address] [place] [address] [address] [facility] [address] Tricia Gerber RN Case Paste Up Artist of Care Management [email or web address] Pager: [phone] * Tricia Gerber RN - 03/11/2018 4:46 PM EDT Plan for discharge tomorrow 03-12-18: - Scripts have been ordered, filled, and ready for picker packer at [facility] (except those noted below) o Depends were ordered but not covered by insurance, they are available at [facility] pharmacy for purchase o Testosterone cream requires a prior authorization, we have submitted for prior authorization. We will send him with tube that is currently being utilized in the hospital. - Urinal and bed guillen will be sent with R.B. upon discharge (if Bhakti wants to get these items from nurses station when she comes to picker packer medications that is also an option) - Wheelchair, commode and hospital bed have been ordered through [facility]. Their [place] office will be delivering these items and have been given [facility] contact information for coordination of the delivery. - Ambulance has been confirmed for pick-up at 1:30pm - Discharge Summary o Hard copy will be sent with patient in envelope o Fax copy will also be sent to [phone] Called patients sister Bettina [phone] (work#1) she was gone for the day [phone] (cell) left voice mail [phone] (work#2) she was not scheduled today Tricia Gerber RN Case Paste Up Artist of Care Management [email or web address] Pager: [phone] * Echo Hanson RN - 03/11/2018 3:57 PM EDT Continuing to support complex d/c planning on behalf of care management. Received call back from [facility] COMPRESSOR OPERATOR PORTABLE Kris Back, discussed with him the importance [...] advocated to transfer DS services to another [facility] where client's needs could have been met sooner. Also relayed concern about communication delays from [facility]. Recvd calls from Carissa Posada [phone] confirming patient's plan for d/c to [facility] tomorrow via ambulance, and that [facility] staff are visiting patient today to retrieve DME and medications to prepare patient for tomorrow. Recvd call from Rob regulatory attorney at [place] [employer] to check patient status. Returned his call [phone] with update as above. Confirmed with primary RN LUCAS Clarke that DME, medications are ordered and in process of retrieval with [facility], and that ambulance will be arranged for early afternoon 03/12. Continue to be available for complex discharge planning needs on behalf of care mangement. Echo Hanson RN, MSN, ACM Securities Analyst - Care Management [phone] / [phone] pager [phone] [email or web address] * Dario Gallegos MD - 03/11/2018 12:14 [...] Awaiting placement Primary Care Provider: NAKIA Cifuentes [phone] Inpatient Certification Attestation: IPI Certification I certify [...] IPI criteria and is awaiting rehabilitation or senior living facility placement withactive referrals in process DARIO GALLEGOS MD Team Pager(MD Coverage 27/01): #[phone] 03/11/2018 * Dario Gallegos MD - 03/10/2018 [...] Awaiting placement Primary Care Provider: NAKIA Cifuentes [phone] Inpatient Certification Attestation: IPI Certification I certify that I am a D-H credentialed attending provider with admitting privileges and that the patient meets or has met medical necessity to require an inpatient IPI level of care meeting a minimumof two midnights or is on the [facility] inpatient only procedure list (status C) due to: the patient has met Inpatient IPI criteria and is awaiting rehabilitation or senior living facility placement withactive referrals in process DARIO GALLEGOS MD Team Pager(MD Coverage 27/01): #[phone] 03/10/2018 * Mavis Solo, FAIRING WORKER - 03/10/2018 3:27 PM EDT FAIRING WORKER received a return call from Asael Valdez at [facility]. Per Asael, after his evaluation of Miguel Angel on Friday, [facility]. Asael informed this worker that his role is to determine if the pt.'s needs can be met safely, and then he informs Naheed Estrella whether or not the needs can be met safely. Naheed then decides to offer the bed, and Asael informs Lillian (Miguel Angel's [facility] worker) who then coordinates the transfer. Asael confirmed that he has left a voice message for Lillian informing her that Miguel Angel is appropriate for their [facility] bed, and that the bed is available. He is awaiting a response from Lillian. JAMSHID Enamorado Pager: [phone] * Mavis Solo MSW - 03/10/2018 2:02 PM EDT JAMSHID left a voice message for Asael Valdez (cell: [phone]) at [facility] ([facility]) to check on bed availability. Awaiting a return call. JAMSHID Enamorado Pager: [phone] * Jazzmine Charlton, BERNY - 03/10/2018 1:19 PM EDT Nutrition Progress Note Miguel Angel Mason is a 27 y.o. male Reason for intervention: Follow up Nutrition Recommendations: Recommend continuation of current diet order Consider daily multivitamin w/ minerals, Vit D and Calcium given fci steroid use Sitters please assist patient with [...] Orders Diet Daily Healthy Menu Choices/Cardiac diet ([facility]Diet) 2000 mL FLUID Frequency: Effective Now Number of Occurrences: Until Specified Admit Weight: 86.64 kg Estimated body mass index is 31.12 kg/(m^2) as calculated from the following: Height as of this encounter: 177.8 cm (5' 10). Weight as of this encounter: 98.4 kg (216 lb 14.4 oz). Quinton body weight: 73 kg (160 lb 15 [...] content of every food available. Discussed with PHYS THER attempting to encourage patient to eat lean proteins, low-fat dairy, complex carbohydrates, and avoid concentrated sweets and high-fat foods. Worked with PHYS THER to complete patient's breakfast lunch and dinner menus for tomorrow. Sitter reports that patient eats everything that he is and is not very picky. No further nutrition related questions or concerns at this time. ?? MARIYA Kat * Dina Ca - 03/09/2018 2:15 PM EDT [facility] Encounter Note Patient Name: Miguel Angel Mason : [id number] MR#: [id number] Admit Date: 09/02/2017 9:23 PM Hospital Day 188 days Narrative: visited pt on routine rounds. Assessment: Pt was asleep in his bed, sitter was seated near the bedside. Intervention and Outcome: As pt was asleep, checked in with sitter on how he was doing. 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 Follow-up: Yes, on routine rounds Time in Direct Care: 5 mins Dina Fuentesstephanie 03/09/2018 * Gabriella Maher MD - 03/09/2018 8:21 AM EDT Hospital [...] 12/09/2017 PM Active Non-Hospital Problems Diagnosis ??? Seizure disorder [...] Awaiting placement Primary Care Provider: NAKIA Cifuentes [phone] Inpatient Certification Attestation: IPI Certification I certify [...] IPI criteria and is awaiting rehabilitation or senior living facility placement withactive referrals in process Gabriella Maher MD Team Pager(MD Coverage 27/01): #[phone] 03/09/2018 * Gabriella Maher MD - 03/08/2018 8:01 AM EDT [facility] Medicine Attending Inpatient Daily Progress Note [...] was found Confirmed by MD Ng Kevin ([id number]) on 03/01/2018 11:01:50 AM QTCCALC 446 VASCULAR: [...] dose (~7.5 mg prednisone equivalent) - recheck DIGITAL ASSOCIATE today # SIRS, resolved - Workup unremarkable [...] Awaiting placement Primary Care Provider: NAKIA Cifuentes [phone] Inpatient Certification Attestation: IPI Certification I certify [...] IPI criteria and is awaiting rehabilitation or senior living facility placement withactive referrals in process Gabriella Maher MD Team Pager(MD Coverage 27/01): #[phone] 03/08/2018 * Gabriella Maher MD - 03/07/2018 4:10 PM EDT [facility] Medicine Attending Inpatient Daily Progress Note [...] dose (~7.5 mg prednisone equivalent) - recheck DIGITAL ASSOCIATE today # SIRS, resolved - Workup unremarkable [...] Awaiting placement Primary Care Provider: NAKIA Cifuentes [phone] Inpatient Certification Attestation: IPI Certification I certify [...] IPI criteria and is awaiting rehabilitation or senior living facility placement withactive referrals in process Gabriella Maher MD Team Pager(MD Coverage 27/01): #[phone] 03/07/2018 * Echo Hanson, HEATHER - 03/06/2018 5:18 PM EDT Continuing to support complex discharge planning on behalf of care management. For additional care management dept discharge planning efforts, see notes. Recvd information that patient may have [facility] (vs [facility]) placement setup (equipped home and care team) and that patient's DS budget is under review by [facility] leadership. Called [facility] and left , received call back from Carissa Posada who confirmed that a plan has been proposed, including a lease agr eement and budget and it is awaiting leadership approval. She agrees to have [facility] leadership return call to share further details about lack of signoff. Call placed to [place] [employer], gave update re: above to regulatory attorney Rob who is following hissituation. He plans to call pt's guardian (sister Bettina) to obtain approval to continue to work ontheir behalf, will call with updates. Call placed to [place] [facility] Director for Disability Services [place] [employer] to update with above information. She, too, will continue to advocate for [facility] to signoff on patient's budgetand clear the path to his usp placement. HEATHER Clarke updated. Will continue to follow and advocate on patient's behalf. Will return 03/10. Echo Hanson, HEATHER, MSN, ACM Securities Analyst - Care Management [phone] / [phone] pager [phone] [email or web address] * Tricia Gerber RN - 03/06/2018 4:56 PM EDT The patient/outbound sales representative has been provided a list of Home Health Agencies/DME vendors which servetheir preferred geographic area. A letter describing our affiliations was reviewed with them and they were educated about their right to choose where referrals are placed. Patient requests referral to [facility] for wheelchair and walker. Expected date of discharge: 03-10-18. Referral routed to the [employer] for matching with agency/vendor and to provide any required information. Tricia Gerber RN Case Paste Up Artist of Care Management [email or web address] Pager: [phone] * Tricia Gerber RN - 03/06/2018 4:27 PM EDT Lillian Holcomb from [facility] Human Services and another outbound sales representative came to visit with Miguel Angel today and meet with [facility]. [facility] outbound sales representative Asael Courtney [phone] visited with patient, [facility] staff, and [facility] staff today. Charge nurse reviewed Miguel Angel's case/needs. [facility] to be in contact with [facility] on Saturday 03/10 regarding their tentative plan to accept. He was given pager number for attending should their psychiatrist have any questions regarding medications. We determined that patient will need wheelchair and walker for discharge. Process Steward will place order with [facility] for these items. Miguel Angel may also need hospital bed or rails added to bed at [facility]. Lashell discuss further with management at [facility] as bed rails may be considered a restraint and not allowed by the state. Lillian reports that she did speak with Bettina Mason (Guardian/sister), she is in agreement with plan and would like to be present at time of transfer. Case management will continue to follow and assist with discharge planning needs. Tricia Gerber RN Case Paste Up Artist of Care Management [email or web address] Pager: [phone] * Reba Linton MD - 03/06/2018 1:59 [...] molar - Non-urgent extraction as outpatient Diet [facility] Healthy Diet Discharge planning Awaiting placement, medically ready for discharge. CM working hard to secure placement Lines/Access None Morse catheter None DVT Prophylaxis None, patient is ambulatory Code status FULL Team Pager [phone] PCP NAKIA Cifuentes Attestation IPI Certification I [...] IPI criteria and is awaiting rehabilitation or senior living facility placement withactive referrals in process REBA LINTON MD * Tricia Gerber RN - 03/05/2018 5:36 PM EDT Called and spoke with Bettina Mason (Guardian/sister) [phone] (W). Reviewed details of meeting held today and plan for evaluation by [facility]. She reports that she would have liked [...] from whom she believes was Lillian from [facility]. States Lillian left hercell phone number and she wanted to call and talk to Lillian to learn more about [facility]. Miguel Angel gettingout is great news, but also very nerve wrecking. She agreed to call financial underwriter back after talking with Lillian. Case management will continue to follow. Tricia Gerber RN Case Paste Up Artist of Care Management [email or web address] Pager: [phone] * Mavis Solo MSW - 03/05/2018 2:55 PM EDT Care Conference call held with Hilton Barker- field care coordinator, Tricia- Injection Moulding Machine Operator, Echo Canas Cdc Associate, Dr. Glodstein, this worker, and multiple staff at [facility], and Naheed Estrella from [facility] to discuss Miguel Angel's medical status, behavioral tendencies, and needs for [facility] placement. All questions from participating parties appeared to have been answered. Per Asael Ferrer from [facility] will be coming to to see Miguel [...] and assist as appropriate. JAMSHID Enamorado Pager: [phone] * Reba Linton MD - 03/05/2018 8:53 [...] molar - Non-urgent extraction as outpatient Diet [facility] Healthy Diet Discharge planning Awaiting placement, medically ready for discharge. CM working hard to secure placement Lines/Access None Morse catheter None DVT Prophylaxis None, patient is ambulatory Code status FULL Team Pager [phone] PCP NAKIA Cifuentes Attestation IPI Certification I [...] IPI criteria and is awaiting rehabilitation or senior living facility placement withactive referrals in process REBA LINTON MD * Shruti Lozoya, RN - 03/05/2018 2:05 AM EDT 03/03/18-03/04/18 [id number] Patient not wearing continuous masimo due to [...] to be medically ready and appropriate for halfway/shared living provider. See recent nursing and provider notes for care needs. Communication ongoing with [facility] who is planning to arrange discharge situation for patient in [facility] with staff. [facility], as the [facility] Dev [facility] crisis bed facilitation organization, isconsidering admitting patient to crisis bed shortterm with plan to transfer to [facility] setup. Recvd communication from [facility] they are now planning to do onsite visit to assess appropriateness ofcrisis bed placement vs gathering information about patient's needs and plan for discharge this week. [facility] will likely not be able to support transfer this week. Given patient's overall situation, crisis placement may not be therapeutic for patient as it can have frequent admits/discharges and disruptions for client, and he would endure another transition once a permanent placement is secured. Due to protracted planning with both [facility] and [facility], call placed to [facility] [employer] ([facility] organization for the Designated MH Agencies) Director of MH services (Prosper Carter) and Director of Dev Services ([place] Ballum) to review scenario with PHI redacted. [place] will be contacting Carissa Posada with [facility] to encourage increased communication of barriers to discharge. Both agreed with advocacy to [place] [employer] as well as informing patient's guardian that she does have the right to seek DS services in another [facility]. Call placed to [place] [employer] to lease out worker Erlinda [phone] who has passed Guido's case along for review with their regulatory attorney. The main concern is protracted non-acute stay for individual with intellectual disabilities. Shared guardian contact information. Call placed to guardian Bettina STAFFORD left at her cell phone # to return call. Plan to update her andensure she is aware of [place] [employer] as a resource as well as her option to [facility] the [facility]. PLAN: - conference call scheduled for 03/05 at 2pm with [facility] and staff - appreciate coordination by PRANEETH Garcia d/ollie to shared living provider or crisis bed if approved by [facility] and/or [facility] - onsite visit by [facility] is the first step and they have not yet agreed to a date/time - continue to advocate for services and support as above Echo Hanson RN, MSN, [facility] Securities Analyst - Care Management [phone] / [phone] pager [phone] [email or web address] * Shruti Lozoya RN - 03/04/2018 4:01 AM EDT 03/03/18-03/04/18 [id number] Patient does not have continuous masimo monitor in place, pt does allow spot checks. The reason forno masimo is due to safety and pt's level of agitation (intermittent). Will continue to assess needfor continuous masimo and will continue spot checks with VS. * Reba Linton MD - 03/03/2018 4:52 PM EDT [facility] Attending Daily Progress Note Patient [...] molar - Non-urgent extraction as outpatient Diet [facility] [place] Discharge planning Awaiting placement, medically ready for discharge. CM working hard to secure placement Lines/Access None Morse catheter None DVT Prophylaxis None, patient is ambulatory Code status FULL Team Pager [phone] PCP NAKIA Cifuentes Attestation IPI Certification I [...] IPI criteria and is awaiting rehabilitation or senior living facility placement withactive referrals in process REBA LINTON MD * Echo Hanson RN - 03/03/2018 3:32 PM EDT Continuing to support discharge planning for patient on behalf of care management. Patient medically ready since early October awaiting d/c plan arrangements from [facility]. Patient unableto return to halfway setting due to inability to navigate stairs. [facility] continues to secure usp housing and a care team for him in a new residence. Email communication today with Carissa Posada, Chief Intellectual/Developmental Disabilities Services [facility] who is assisting with coordination [...] needs in preparation for transition. PLAN: 1- IN/[facility] crisis team to visit patient this week to assess care needs in anticipation of transition to crisis bed in [facility] with [facility]OY[facility] support 2- 03/05 afternoon phone care conference with ZOYA and team (JAMSHID Dexter coordinating) to discuss daily care needs, meds and discharge transportation 3- discharge to crisis bed in [facility] in care of YULISANASEEM as patient comes from halfway Anticipate discharge soon - unable to confirm date, likely during the week of 03/10. Care Management to continue to follow for d/c needs. Echo Hanson RN, MSN, ACM Securities Analyst - Care Management [phone] / [phone] pager [phone] [email or web address] * Felecia Moran RN - 03/03/2018 [...] Reason for intervention: Consult Nutrition Recommendations: Recommend [facility] [place] healthy diet order [...] Orders Diet Daily Healthy Menu Choices/Cardiac diet ([facility] [place] Frequency: Effective Now Number of Occurrences: Until Specified Admit Weight: 86.64 kg Estimated body mass index is 31.39 kg/(m^2) as calculated from the following: Height as of this encounter: 177.8 cm (5' 10). Weight as of this encounter: 99.2 kg (218 lb 12.8 oz). [place] Body Weight (IBW): [place]inton body weight: 73 kg (160 lb 15 [...] a new facility. MARIYA ZENDEJAS Beeper #: [id number] * Reba Linton MD - 03/02/2018 1:12 PM EDT [facility] Attending Daily Progress Note Patient [...] molar - Non-urgent extraction as outpatient Diet [facility] [place] Diet Discharge planning Awaiting placement, medically ready for discharge. CM working hard to secure placement Lines/Access None Morse catheter None DVT Prophylaxis None, patient is ambulatory Code status FULL Team Pager [phone] PCP NAKIA Cifuentes Attestation IPI Certification I certify that I am a D-H credentialed attending provider with admitting privileges and that the patient meets or has met medical necessity to require an inpatient IPI level of care meeting a minimumof two midnights or is on the [facility] inpatient only procedure list (status C) due to: the patient has met Inpatient IPI criteria and is awaiting rehabilitation or senior living facility placement withactive referrals in process REBA LINTON MD * Reba Linton MD - 03/01/2018 2:31 PM EDT [facility] Attending Daily Progress Note Patient [...] sitting at the edge of bed reading Snapcious with PHYS THER HEENT: Moist mucous membranes Neck: No jugular [...] is ambulatory Code status FULL Team Pager [phone] PCP NAKIA Cifuentes Attestation IPI Certification I certify that I am a D-H credentialed attending provider with admitting privileges and that the patient meets or has met medical necessity to require an inpatient IPI level of care meeting a minimumof two midnights or is on the [facility] inpatient only procedure list (status C) due to: the patient has met Inpatient IPI criteria and is awaiting rehabilitation or senior living facility placement withactive referrals in process REBA LINTON MD * Reba Linton MD - 02/28/2018 3:44 PM EDT Hospital Medicine Attending Daily [...] is ambulatory Code status FULL Team Pager [phone] PCP NAKIA Cifuentes Attestation IPI Certification I certify that I am a D-H credentialed attending provider with admitting privileges and that the patient meets or has met medical necessity to require an inpatient IPI level of care meeting a minimumof two midnights or is on the [facility] inpatient only procedure list (status C) due to: the patient has met Inpatient IPI criteria and is awaiting rehabilitation or senior living facility placement withactive referrals in process REBA LINTON MD * Tricia Gerber RN - 02/27/2018 11:04 AM EDT Received call back from Noel Estrella- [phone] PASSR reviewer. She reports that PASSR is not needed unless patient is placed in a long term, which is not an appropriate setting for him. States she has been following case closely with YULISA Quevedo, and all parties involved would like him placed as soon as possible. Reports that they are looking at possible transfer to crisis center when there is a bed opening. Tricia Gerber RN Case Paste Up Artist of Care Management [email or web address] Pager: [phone] * Abimbola Goldstein MD - 02/27/2018 8:20 AM EDT [facility] Attending Daily Progress Note Patient [...] secure placement Code Status: Full Decision Maker: Guardibarbie Sister Bettina Mason, contact information in Facesheet ABIMBOLA GOLDSTEIN MD [facility] Pager [phone] IPI Certification I certify that I am a D-H credentialed attending provider with admitting privileges and that the patient meets or has met medical necessity to require an inpatient IPI level of care meeting a minimumof two midnights or is on the [facility] inpatient only procedure list (status C) due to: the patient has met Inpatient IPI criteria and is awaiting rehabilitation or senior living facility placement withactive referrals in process . * Echo Hanson RN - 02/26/2018 4:57 PM EDT Continuing to follow patient's situation to support discharge planning and facilitation by care management. Patient admitted from halfway under Developmental Services in [facility] with [facility]. Exchanged emails this week with Carissa Posada, Chief of who is supporting Bhakti Riojas and others to secure appropriate housing and supports for him. Recvd email today from Carissa stating they are pending approval from the [facility] COMPRESSOR OPERATOR [employer]ABLE once they identify the leasing cost of a home. She is available tomorrow for a phone checkin and Care Management leadership will call to check in as she will be in the [facility] office [phone] ext [phone]. Chloe has been communicated with by HEATHER Clarke. Care Mgmt leadership to continue to follow and obtain regular updates from [facility]. Patient requires single-level entry to home which prevents his return to previous living situation. Echo Hanson RN, MSN, ACM-porter head, Care Management [phone] / pager [phone] * Abimbola Goldstein MD - 02/26/2018 8:28 AM EDT [facility] Attending Daily Progress Note Patient [...] Status: Full Decision Maker: Guardian Sister Bettina Isabella, contact information in Facesheet ABIMOBLA GOLDSTEIN MD Hospital Medicine Pager [phone] IPI Certification I certify that I am a D-H credentialed attending provider with admitting privileges and that the patient meets or has met medical necessity to require an inpatient IPI level of care meeting a minimumof two midnights or is on the [facility] inpatient only procedure list (status C) due to: the patient has met Inpatient IPI criteria and is awaiting rehabilitation or senior living facility placement withactive referrals in process . [...] received. Left voicemail for Bhakti Riojas, Senior Valver for [facility] [phone]. Called [facility] office [phone]. Spoke with Lali. She reports that Noel Estrella is assigned reviewer. States she will email her to check on status and call back. Spoke with Bettina Mason (Guardian/sister) [phone] (H). She reports that she spoke with [facility] last week and they told her they were looking at a new halfway in [place] and a rental property. States this was her last report from them. Tricia Gerber, principal technical writer Office of Care Management Pager: [phone] * Abimbola Goldstein MD - 02/25/2018 12:06 PM EDT [facility] Attending Daily Progress Note Patient [...] contact information in Facesheet ABIMBOLA GOLDSTEIN MD [facility] Pager [phone] IPI Certification I certify that I am a D-H credentialed attending provider with admitting privileges and that the patient meets or has met medical necessity to require an inpatient IPI level of care meeting a minimumof two midnights or is on the [facility] inpatient only procedure list (status C) due to: the patient has met Inpatient IPI criteria and is awaiting rehabilitation or senior living facility placement withactive referrals in process . * Shruti Lozoya RN - 02/25/2018 4:52 AM EDT 02/24/18-02/25/18 [id number] Patient refusing to wear continuous masimo but does allow spot checks. The reason being the pt is not reliable to maintain safety with the cord continuously attached. Nursing will continue to monitor and will continue to spot check O2 levels with VS. * Abimbola Goldstein MD - 02/24/2018 10:37 AM EDT [facility] Attending Daily Progress Note Patient [...] contact information in Facesheet ABIMBOLA GOLDSTEIN MD [facility] Pager [phone] IPI Certification I certify that I am a D-H credentialed attending provider with admitting privileges and that the patient meets or has met medical necessity to require an inpatient IPI level of care meeting a minimumof two midnights or is on the [facility] inpatient only procedure list (status C) due to: the patient has met Inpatient IPI criteria and is awaiting rehabilitation or senior living facility placement withactive referrals in process . * Shruti Lozoya, RN - 02/24/2018 4:48 AM EDT 02/23/18-02/24/18 [id number] Patient refusing to wear continuous masimo. The reason being agitation of pt when wearing it, safety issues. Pt does allow spot checks with VS. Nursing actions taken during this shift to address patient???s refusal included continued educationabout importance of care, importance of O2 monitoring. Will inform MD of any changes, * Abimbola Goldstein MD - 02/23/2018 9:12 AM EDT [facility] Attending Daily Progress Note Patient [...] contact information in Facesheet ABIMBOLA GOLDSTEIN MD [facility] Pager [phone] IPI Certification I [...] IPI criteria and is awaiting rehabilitation or senior living facility placement withactive referrals in process . * Abimbola Goldstein MD - 02/22/2018 8:45 AM EDT [facility] Attending Daily Progress Note Patient [...] check weekly, next check on 820 AM labs --cont desmopressin, levothyroxine and hydrocortisone [...] contact information in Facesheet ABIMBOLA GOLDSTEIN MD [facility] Pager [phone] IPI Certification I certify that I am a D-H credentialed attending provider with admitting privileges and that the patient meets or has met medical necessity to require an inpatient IPI level of care meeting a minimumof two midnights or is on the CMS inpatient only procedure list (status C) due to: the patient has met Inpatient IPI criteria and is awaiting rehabilitation or senior living facility placement withactive referrals in process . * Abimbola Goldstein MD - 02/21/2018 10:33 AM EDT [facility] Attending Daily Progress Note Patient [...] contact information in Facesheet ABIMBOLA GOLDSTEIN MD [facility] Pager [phone] IPI Certification I certify that I am a D-H credentialed attending provider with admitting privileges and that the patient meets or has met medical necessity to require an inpatient IPI level of care meeting a minimumof two midnights or is on the CMS inpatient only procedure list (status C) due to: the patient has met Inpatient IPI criteria and is awaiting rehabilitation or senior living facility placement withactive referrals in process . [...] pursuing placement. Have been in contact with [facility]. Per email on 02/18 looking at possible rental property Friday. We also have an opening in one of our group homes that may beable to meet his needs, however the director is on vacation until Friday so I cannot make the referral until then.. OCM management is also working with Carissa Posada Chief of Intellectual/Developmental Disabilities Services [facility]. Have requested to set-up weekly review meetings. Left voice mail for Level 2 reviewer at [facility] office [phone]. Request call back to discuss case. Case management will continue to follow and assist with discharge planning needs. Tricia Gerber RN Case Paste Up Artist of Care Management [email or web address] Pager: [phone] * Maldonado Salazar MD - 02/20/2018 12:09 PM EDT [facility] Attending Daily Progress Note Patient [...] BMP check to weekly, next check on 8/20 AM labs --n.b. desmopressin, levothyroxine and hydrocortisone [...] contact information in Facesheet Maldonado Salazar MD [facility] Pager [phone] IPI Certification I certify that I am a D-H credentialed attending provider with admitting privileges and that the patient meets or has met medical necessity to require an inpatient IPI level of care meeting a minimumof two midnights or is on the [facility] inpatient only procedure list (status C) due to: the patient has met Inpatient IPI criteria and is awaiting rehabilitation or senior living facility placement withactive referrals in process . * Maldonado Salazar MD - 02/19/2018 2:02 PM EDT [facility] Attending Daily Progress Note Patient [...] contact information in Facesheet Maldonado Salazar MD [facility] Pager [phone] IPI Certification I certify that I am a D-H credentialed attending provider with admitting privileges and that the patient meets or has met medical necessity to require an inpatient IPI level of care meeting a minimumof two midnights or is on the CMS inpatient only procedure list (status C) due to: the patient has met Inpatient IPI criteria and is awaiting rehabilitation or senior living facility placement withactive referrals in process . [...] hospital course unless consulted in the interim. Debbie L Krishna, DT * Debbie Hale RN - 02/19/2018 4:53 [...] Salazar MD - 02/18/2018 2:13 PM EDT [facility] Attending Daily Progress Note Patient [...] contact information in Facesheet Maldonado Salazar MD [facility] Pager [phone] IPI Certification I certify that I am a D-H credentialed attending provider with admitting privileges and that the patient meets or has met medical necessity to require an inpatient IPI level of care meeting a minimumof two midnights or is on the CMS inpatient only procedure list (status C) due to: the patient has met Inpatient IPI criteria and is awaiting rehabilitation or senior living facility placement withactive referrals in process . * Tricia Gerber RN - 02/17/2018 5:15 PM EDT Sent email message to Bhakti Riojas- Senior Valver with [facility] [email or web address] [phone].??Request update on status of search for a home. ? Tricia Gerber RN Case Paste Up Artist of Care Management [email or web address] ?Pager: [phone] * Maldonado Salazar MD - 02/17/2018 2:34 PM EDT [facility] Attending Daily Progress Note Patient [...] contact information in Facesheet Maldonado Salazar MD [facility] Pager [phone] IPI Certification I certify that I am a D-H credentialed attending provider with admitting privileges and that the patient meets or has met medical necessity to require an inpatient IPI level of care meeting a minimumof two midnights or is on the [facility] inpatient only procedure list (status C) due to: the patient has met Inpatient IPI criteria and is awaiting rehabilitation or senior living facility placement withactive referrals in process . * Maldonado Salazar MD - 02/16/2018 2:46 PM EDT Hospital Medicine Attending Daily Progress [...] contact information in Facesheet Maldonado Salazar MD [facility] Pager [phone] IPI Certification I certify that I am a D-H credentialed attending provider with admitting privileges and that the patient meets or has met medical necessity to require an inpatient IPI level of care meeting a minimumof two midnights or is on the [facility] inpatient only procedure list (status C) due to: the patient has met Inpatient IPI criteria and is awaiting rehabilitation or senior living facility placement withactive referrals in process . * Maldonado Salazar MD - 02/15/2018 2:16 PM EDT [facility] Attending Daily Progress Note Patient [...] the pod using walker today, made it nursing home around before needing wheelchair. No particular complaints. [...] Facesheet Maldonado Salazar MD Hospital Medicine Pager [phone] IPI Certification I certify that I am a D-H credentialed attending provider with admitting privileges and that the patient meets or has met medical necessity to require an inpatient IPI level of care meeting a minimumof two midnights or is on the CMS inpatient only procedure list (status C) due to: the patient has met Inpatient IPI criteria and is awaiting rehabilitation or senior living facility placement withactive referrals in process . * Maldonado Salazar MD - 02/14/2018 1:52 PM EDT [facility] Attending Daily Progress Note Patient [...] no behavioral issues. Told me his favorite Migel Flynn character was Yeny because he's an [...] desmopressin, hydrocortisone, levothyroxine, testosterone --Electrolyte check pending 812 AM labs, if remains stable can space [...] contact information in Facesheet Maldonado Salazar MD [facility] Pager [phone] IPI Certification I certify that I am a D-H credentialed attending provider with admitting privileges and that the patient meets or has met medical necessity to require an inpatient IPI level of care meeting a minimumof two midnights or is on the [facility] inpatient only procedure list (status C) due to: the patient has met Inpatient IPI criteria and is awaiting rehabilitation or senior living facility placement withactive referrals in process . * Christopehr Stanley MD - 02/13/2018 8:01 AM EDT [facility] Attending Daily Progress Note Patient [...] overnight events Case management reached out to halfway about status of search A few behavioral outbursts overnight with no recent deviation from baseline. Feeling awesome thismorning and listening to [email or web address]. Good oral intake per nursing staff. Voiding regularly. Havingregular bowel movements. No other symptoms or offered complaints. Physical Exam Temp: [36.6 ??C (97.9 ??F)-36.8 ??C (98.2 ??F)] Heart Rate: [77-84] Resp: [18] BP: (134-143)/(71-75) SpO2: [99 %] Heart Rate from SPO2: -- General: Alert, interactive, responsive to questions, listening to [email or web address] HEENT: Moist mucous membranes Neck: No evident [...] Facesheet Christopher Stanley MD Hospital Medicine Pager [phone] IPI Certification I certify that I am a D-H credentialed attending provider with admitting privileges and that the patient meets or has met medical necessity to require an inpatient IPI level of care meeting a minimumof two midnights or is on the [facility] inpatient only procedure list (status C) due to: the patient has met Inpatient IPI criteria and is awaiting rehabilitation or senior living facility placement withactive referrals in process . * Tricia Gerber RN - 02/12/2018 3:58 PM EDT Sent message to Bhakti Riojas- Senior Valver with [facility] [phone]. Request update on status of search for a home. ?? Tricia Gerber RN Case Paste Up Artist of Care Management [email or web address] Pager: [phone] * Christopher Stanley MD - 02/12/2018 7:40 AM EDT [facility] Attending Daily Progress Note Patient [...] contact information in Facesheet Christopher Stanley MD [facility] Pager [phone] IPI Certification I certify that I am a D-H credentialed attending provider with admitting privileges and that the patient meets or has met medical necessity to require an inpatient IPI level of care meeting a minimumof two midnights or is on the CMS inpatient only procedure list (status C) due to: the patient has met Inpatient IPI criteria and is awaiting rehabilitation or senior living facility placement withactive referrals in process . * Christopher Stanley MD - 02/11/2018 2:19 PM EDT [facility] Attending Daily Progress Note Patient [...] made him some unicorn poop out of [employer] and corn starch to play with today. [...] 02/11/18 1419 Last data filed at 02/11/18 09 Gross per 24 hour Intake 2136 ml Output 1100 ml Net 1036 ml Last Weight: 98.9 kg (218 lb 1.6 oz) Admission Weight: 86.64 kg Pertinent Labs Recent Labs 02/11/18 0723 02/08/18 0553 02/06/18 1117 NA 145 144 143 K 3.5 3.6 3.9 CL 106 103 102 CO2 23 24 23 BUN 15 17 15 CREATININE 0.64* 0.88 0.74* Recent Labs 02/11/18 0702/08/18 0553 02/06/18 1117 CALCIUM 9.4 9.7 9.6 [...] contact information in Facesheet Christopher Stanley MD [facility] Pager [phone] IPI Certification I certify that I am a D-H credentialed attending provider with admitting privileges and that the patient meets or has met medical necessity to require an inpatient IPI level of care meeting a minimumof two midnights or is on the [facility] inpatient only procedure list (status C) due to: the patient has met Inpatient IPI criteria and is awaiting rehabilitation or senior living facility placement withactive referrals in process . * Christopher Stanley MD - 02/10/2018 11:53 AM EDT [facility] Attending Daily Progress Note Patient [...] and celery during my visit, listening to [employer] music HEENT: Moist mucous membranes Neck: No [...] contact information in Facesheet Christopher Stanley MD [facility] Pager [phone] IPI Certification I [...] IPI criteria and is awaiting rehabilitation or senior living facility placement withactive referrals in process . * Christopher Stanley MD - 02/09/2018 8:08 AM EDT [facility] Attending Daily Progress Note Patient [...] Facesheet Christopher Stanley MD Hospital Medicine Pager [phone] IPI Certification I certify that I am a D-H credentialed attending provider with admitting privileges and that the patient meets or has met medical necessity to require an inpatient IPI level of care meeting a minimumof two midnights or is on the [facility] inpatient only procedure list (status C) due to: the patient has met Inpatient IPI criteria and is awaiting rehabilitation or senior living facility placement withactive referrals in process . * Christopher Stanley MD - 02/08/2018 10:43 AM EDT [facility] Attending Daily Progress Note Patient [...] or new complaints. Relates his love for [employer]. Physical Exam Temp: -- Heart Rate: [125] [...] Encourage normal sleep-wake cycle Christopher Stanley MD [facility] Pager [phone] IPI Certification I certify that I am a D-H credentialed attending provider with admitting privileges and that the patient meets or has met medical necessity to require an inpatient IPI level of care meeting a minimumof two midnights or is on the CMS inpatient only procedure list (status C) due to: the patient has met Inpatient IPI criteria and is awaiting rehabilitation or senior living facility placement withactive referrals in process . * Christopher Stanley MD - 02/07/2018 7:45 AM EDT [facility] Attending Daily Progress Note Patient [...] alert, agitated, eating carrots and celery with PHYS THER HEENT: Anicteric sclerae; moist mucous membranes Neck: [...] extra dose of quetiapine Christopher Stanley MD [facility] Pager [phone] IPI Certification I certify that I am a D-H credentialed attending provider with admitting privileges and that the patient meets or has met medical necessity to require an inpatient IPI level of care meeting a minimumof two midnights or is on the [facility] inpatient only procedure list (status C) due to: the patient has met Inpatient IPI criteria and is awaiting rehabilitation or senior living facility placement withactive referrals in process . [...] Daily Progress Note Patient Name: Miguel Angel Masno Service: Hospital Medicine Admit Date: 09/02/2017 Hospital [...] minimumof two midnights or is on the [facility] inpatient only procedure list (status C) due to: Patient previously met IPI criteria and is now awaiting placement at a senior living facility. FRAN GILLIAM MD 02/06/2018 Hospital Medicine Team Pager: #[phone] * Fran Gilliam MD - 02/05/2018 4:07 [...] minimumof two midnights or is on the [facility] inpatient only procedure list (status C) due to: Patient previously met IPI criteria and is now awaiting placement at a senior living facility. FRAN GILLIAM MD 02/05/2018 Hospital Medicine Team Pager: #[phone] * Fran Gilliam MD - 02/04/2018 9:44 [...] minimumof two midnights or is on the [facility] inpatient only procedure list (status C) due to: Patient previously met IPI criteria and is now awaiting placement at a senior living facility. FRAN GILLIAM MD 02/04/2018 Hospital Medicine Team Pager: #[phone] * Fran Gilliam MD - 02/03/2018 5:05 [...] minimumof two midnights or is on the [facility] inpatient only procedure list (status C) due to: Patient previously met IPI criteria and is now awaiting placement at a senior living facility. FRAN GILLIAM MD 02/03/2018 Hospital Medicine Team Pager: #[phone] * Fran Gilliam MD - 02/02/2018 3:40 [...] and is now awaiting placement at a senior living facility. FRAN GILLIAM MD 02/02/2018 Hospital Medicine Team Pager: #[phone] * Fran Gilliam MD - 02/01/2018 5:15 [...] and is now awaiting placement at a senior living facility. FRAN GILLIAM MD 02/02/2018 Hospital Medicine Team Pager: #[phone] * Fran Gilliam MD - 01/31/2018 12:10 [...] minimumof two midnights or is on the [facility] inpatient only procedure list (status C) due to: Patient previously met IPI criteria and is now awaiting placement at a senior living facility. FRAN GILLIAM MD 02/01/2018 Hospital Medicine Team Pager: #[phone] * Tricia Gerber RN - 01/30/2018 3:33 PM EDT Sent message to Bhakti Riojas- Senior Valver with [facility] [phone]. Request update on status of search for a home. Tricia Gerber RN Case Paste Up Artist of Care Management [email or web address] Pager: [phone] * Noah Menard MD - 01/30/2018 8:06 [...] minimumof two midnights or is on the [facility] inpatient only procedure list (status C) due to: Patient previously met IPI criteria and is now awaiting placement at a senior living facility. LOS >48hrs. Noah Menard MD 01/30/2018 Hospital Medicine Team Pager: #[phone] * Noah Menard MD - 01/29/2018 7:52 [...] and is now awaiting placement at a senior living facility. LOS >48hrs. Noah Menard MD 01/29/2018 Hospital Medicine Team Pager: #[phone] * Yadi Mccauley MD - 01/28/2018 8:29 AM EDT ENDOCRINOLOGY FOLLOW UP INPATIENT NOTE [facility] Name: Miguel Angel Mason Date of [...] History: Procedure Laterality Date ??? PRO OPEN ATHLETIC EQUIPMENT MANAGER FIX ACETABULAR FX Left 09/04/2017 @OPEN TREATMENT, ACETABULAR FX (WRVU 25.41) performed by Amy Lance MD at [facility] MAIN OR Allergies Allergen Reactions ??? [...] total a daily dose of 2.5 mg. Wezhannao suggested a change in timing of the [...] Walsh DO Endocrinology, Diabetes and Metabolism Fellow 01/28/2018 8:29 AM I have seen the patient and reviewed Dr. Lindsey Walsh's above history and I agree with the details as written. The assessment and plan were formulated in discussion with me and I agree with them as documented. Yadi Mccauley MD, PhD, FACP, FACE I have seen the patient and reviewed Dr. Linsdey Walsh's above history and I agree with [...] minimumof two midnights or is on the [facility] inpatient only procedure list (status C) due to: Patient previously met IPI criteria and is now awaiting placement at a senior living facility. LOS >48hrs. Noah Menard MD 01/28/2018 Hospital Medicine Team Pager: #[phone] * Yadi Mccauley MD - 01/27/2018 4:19 PM EDT Images from the original note were not included. ENDOCRINOLOGY FOLLOW UP INPATIENT NOTE [facility] Name: Miguel Angel Mason Date of [...] History: Procedure Laterality Date ??? PRO OPEN ATHLETIC EQUIPMENT MANAGER FIX ACETABULAR FX Left 09/04/2017 @OPEN TREATMENT, ACETABULAR FX (WRVU 25.41) performed by Amy Lance MD at [facility] MAIN OR Allergies Allergen Reactions ??? [...] for 01/23: Met with Bhakti Riojas- Senior Valver with [facility] [phone]. We reviewed patient and his needs. Expressed to her concerns for the disservice that has been done to this patient. He has remained in the hospital for an extended amount of time and [facility] has not been responsive or assistive in [...] discharge planning needs. Tricia Gerber RN Case Paste Up Artist of Care Management [email or web address] Pager: [phone] * Noah Menard MD - 01/27/2018 7:40 [...] minimumof two midnights or is on the [facility] inpatient only procedure list (status C) due to: Patient previously met IPI criteria and is now awaiting placement at a senior living facility. LOS >48hrs. Noah Menard MD 01/27/2018 Hospital Medicine Team Pager: #[phone] * Noah Menard MD - 01/26/2018 7:40 [...] for discharge and awaiting placement at a senior living facility. Active Problems: Active Hospital Problems Diagnosis [...] for discharge and awaiting placement at a senior living facility. # Left acetabular fracture: S/p operative [...] minimumof two midnights or is on the [facility] inpatient only procedure list (status C) due to: Patient previously met IPI criteria and is now awaiting placement at a senior living facility. LOS >48hrs. Noah Menard MD 01/26/2018 Hospital Medicine Team Pager: #[phone] * Dani Montoya RN - 01/25/2018 5:18 [...] for discharge and awaiting placement at a senior living facility. Active Problems: Active Hospital Problems Diagnosis [...] for discharge and awaiting placement at a senior living facility. # Left acetabular fracture: S/p operative [...] minimumof two midnights or is on the [facility] inpatient only procedure list (status C) due to: Patient previously met IPI criteria and is now awaiting placement at a senior living facility. LOS >48hrs. Noah Menard MD 01/25/2018 Hospital Medicine Team Pager: [phone] * Noah Menard MD - 01/24/2018 7:14 [...] for discharge and awaiting placement at a senior living facility. Active Problems: Active Hospital Problems Diagnosis [...] for discharge and awaiting placement at a senior living facility. # Left acetabular fracture: S/p operative [...] minimumof two midnights or is on the [facility] inpatient only procedure list (status C) due to: Patient previously met IPI criteria and is now awaiting placement at a senior living facility. LOS >48hrs. Noah Menard MD 01/24/2018 Hospital Medicine Team Pager: #[phone] * Abimbola Goldstein MD - 01/23/2018 8:18 [...] presumed environmental given change from his normal halfway to the variably hospital situation. Had been [...] WBAT, not able to return to current halfway and appreciate CM/SW assistance who are reaching out to [facility] for other options - may be home opening in March per report. Denied at SNFs with behavior. [facility] seems only option but no [...] none DVT PPX: SCDs Anticipated Disposition: Currently halfway is not feasible - needs to be able to (at a minimum) walk to the bathroom and go up/down 13 stairs (which mimics the current living situation at his halfway). Per our SW, [facility] is discussing options but no current viable option. SNFs declined. Team Pager(MD Coverage 27/01): # [phone] PCP: NAKIA Cifuentes [phone] Attestation: IPI Certification I certify that I [...] IPI criteria and is awaiting rehabilitation or senior living facility placement withactive referrals in process PCP: NAKIA Cifuentes [phone] ABIMBOLA GOLDSTEIN MD 01/23/2018 * Tricia Gerber RN - 01/22/2018 5:12 PM EDT Received call that YULISA Quevedo RN will be completing on-site visit on 01/23. Tricia Gerber RN Case Paste Up Artist of Care Management [email or web address] Pager: [phone] * Debbie Keller DT - 01/22/2018 12:35 [...] continue to send. Please call diet office [phone] to modify snack any time. Nursing had [...] presumed environmental given change from his normal halfway to the variably hospital situation. Had been [...] WBAT, not able to return to current halfway and appreciate CM/SW assistance who are reaching out to [facility] for other options - may be home opening in March per report. Denied at SNFs with behavior. [facility] seems only option but no [...] none DVT PPX: SCDs Anticipated Disposition: Currently halfway is not feasible - needs to be able to (at a minimum) walk to the bathroom and go up/down 13 stairs (which mimics the current living situation at his halfway). Per our SW, [facility] is discussing options but no current viable option. SNFs declined. Team Pager( Coverage 27/01): # [phone] PCP: NAKIA Cifuentes [phone] Attestation: IPI Certification I certify that I [...] IPI criteria and is awaiting rehabilitation or senior living facility placement withactive referrals in process PCP: NAKIA Cifuentes [phone] ABIMBOLA GOLDSTEIN MD 01/22/2018 * Danay Monge [...] presumed environmental given change from his normal halfway to the variably hospital situation. Had been [...] WBAT, not able to return to current halfway and appreciate CM/SW assistance who are reaching out to [facility] for other options - may be home opening in March per report. Denied at SNFs with behavior. [facility] seems only option but no [...] none DVT PPX: SCD Anticipated Disposition: Currently halfway is not feasible - needs to be able to (at a minimum) walk to the bathroom and go up/down 13 stairs (which mimics the current living situation at his halfway). Per our SW, [facility] is discussing options but no current viable option. SNFs declined. Team Pager( Coverage 27/01): # [phone] PCP: NAKIA Cifuentes [phone] Attestation: IPI Certification I certify that I [...] IPI criteria and is awaiting rehabilitation or senior living facility placement withactive referrals in process PCP: NAKIA Cifuentes [phone] DANAY MONGE MD 01/21/2018 * Danay Monge [...] presumed environmental given change from his normal halfway to the variably hospital situation. Had been [...] WBAT, not able to return to current halfway and appreciate CM/SW assistance who are reaching out to [facility] for other options - may be home opening in March per report. Denied at SNFs with behavior. [facility] seems only option but no [...] none DVT PPX: SCD Anticipated Disposition: Currently halfway is not feasible - needs to be able to (at a minimum) walk to the bathroom and go up/down 13 stairs (which mimics the current living situation at his halfway). Per our SW, [facility] is discussing options but no current viable option. SNFs declined. Team Pager( Coverage 27/01): # [phone] PCP: NAKIA Cifuentes [phone] Attestation: IPI Certification I certify that I am a D-H credentialed attending provider with admitting privileges and that the patient meets or has met medical necessity to require an inpatient IPI level of care meeting a minimumof two midnights or is on the [facility] inpatient only procedure list (status C) due to: the patient has met Inpatient IPI criteria and is awaiting rehabilitation or senior living facility placement withactive referrals in process Crista Aguilar MD PCP: NAKIA Cifuentes [phone] DANAY MONGE MD 01/20/2018 * Danay Monge [...] presumed environmental given change from his normal halfway to the variably hospital situation. Had been [...] WBAT, not able to return to current halfway and appreciate CM/SW assistance who are reaching out to [facility] for other options - may be home opening in March per report. Denied at SNFs with behavior. [facility] seems only option but no [...] none DVT PPX: SCD Anticipated Disposition: Currently halfway is not feasible - needs to be able to (at a minimum) walk to the bathroom and go up/down 13 stairs (which mimics the current living situation at his halfway). Per our SW, [facility] is discussing options but no current viable option. SNFs declined. Team Pager( Coverage 27/01): # [phone] PCP: NAKIA Cifuentes [phone] Attestation: IPI Certification I certify that I [...] IPI criteria and is awaiting rehabilitation or senior living facility placement withactive referrals in process Crista Aguilar MD PCP: NAKIA Cifuentes [phone] DANAY MONGE MD 01/19/2018 * Danay Monge MD - 01/18/2018 11:25 AM EDT [facility] Attending Daily Progress Note Admit Date: 09/02/2017 Hospital Day 138 days Active Hospital Problems Diagnosis ??? S/P ORIF left acetabulum fracture 09/04/2017 Dr. Lance ??? Acute urinary retention ??? Diabetes insipidus ??? Adrenal insufficiency ??? Panhypopituitarism ??? Seizure disorder ??? Hypothyroidism Resolved Hospital Problems Diagnosis Date Resolved ??? Postoperative anemia due to acute blood loss 12/09/2017 [facility] Active Non-Hospital Problems Diagnosis ??? [...] presumed environmental given change from his normal halfway to the variably hospital situation. Had been [...] WBAT, not able to return to current halfway and appreciate CM/SW assistance who are reaching out to [facility] for other options - may be home opening in March per report. Denied at SNFs with behavior. [facility] seems only option but no [...] none DVT PPX: SCD Anticipated Disposition: Currently halfway is not feasible - needs to be able to (at a minimum) walk to the bathroom and go up/down 13 stairs (which mimics the current living situation at his halfway). Per our SW, [facility] is discussing options but no current viable option. SNFs declined. Team Pager( Coverage 27/01): # [phone] PCP: NAKIA Cifuentes [phone] Attestation: IPI Certification I certify that I [...] IPI criteria and is awaiting rehabilitation or senior living facility placement withactive referrals in process Crista Aguilar MD PCP: NAKIA Cifuentes [phone] DANAY MONGE MD 01/18/2018 * Danay Monge [...] anemia due to acute blood loss 12/09/2017 [facility] Active Non-Hospital Problems Diagnosis ??? [...] presumed environmental given change from his normal halfway to the variably hospital situation. Had been [...] WBAT, not able to return to current halfway and appreciate CM/SW assistance who are reaching out to [facility] for other options - may be home opening in March per report. Denied at SNFs with behavior. [facility] seems only option but no [...] none DVT PPX: SCD Anticipated Disposition: Currently halfway is not feasible - needs to be able to (at a minimum) walk to the bathroom and go up/down 13 stairs (which mimics the current living situation at his halfway). Per our SW, [facility] is discussing options but no current viable option. SNFs declined. Team Pager( Coverage 27/01): # [phone] PCP: NAKIA Cifuentes [phone] Attestation: IPI Certification I certify that I am a D-H credentialed attending provider with admitting privileges and that the patient meets or has met medical necessity to require an inpatient IPI level of care meeting a minimumof two midnights or is on the [facility] inpatient only procedure list (status C) due to: the patient has met Inpatient IPI criteria and is awaiting rehabilitation or senior living facility placement withactive referrals in process Crista Aguilar MD PCP: NAKIA Cifuentes [phone] DANAY MONGE MD 01/17/2018 * Crista Aguilar [...] History: No acute events ROS: Talked with PHYS THER. Miguel Angel went out to look at [...] the last 720 hours. IMAGING: CT facial 4/16 IMPRESSION Multiple dental caries. Dental restorations limits [...] presumed environmental given change from his normal halfway to the variably hospital situation. Had been [...] WBAT, not able to return to current halfway and appreciate CM/SW assistance who are reaching out to [facility] for other options - may be home opening in March per report. Denied at SNFs with behavior. [facility] seems only option but no [...] none DVT PPX: SCD Anticipated Disposition: Currently halfway is not feasible - needs to be able to (at a minimum) walk to the bathroom and go up/down 13 stairs (which mimics the current living situation at his halfway). Per our SW, [facility] is discussing options but no current viable option. SNFs declined. Team Pager( Coverage 27/01): # [phone] PCP: NAKIA Cifuentes [phone] Attestation: IPI Certification I certify that I [...] IPI criteria and is awaiting rehabilitation or senior living facility placement withactive referrals in process Crista [...] visit. ROS limited by mental status. Per PHYS THER sleeping more today -did not finish lunch. [...] presumed environmental given change from his normal halfway to the variably hospital situation. Had been [...] WBAT, not able to return to current halfway and appreciate CM/SW assistance who are reaching out to [facility] for other options - may be home opening in March per report. Denied at SNFs with behavior. [facility] seems only option but no [...] none DVT PPX: SCD Anticipated Disposition: Currently halfway is not feasible - needs to be able to (at a minimum) walk to the bathroom and go up/down 13 stairs (which mimics the current living situation at his halfway). Per our SW, [facility] is discussing options but no current viable option. SNFs declined. Team Pager( Coverage 27/01): # [phone] PCP: NAKIA Cifuentes [phone] Attestation: IPI Certification I certify that I [...] IPI criteria and is awaiting rehabilitation or senior living facility placement withactive referrals in process Crista Aguilar MD 01/15/2018 * Tricia Gerber RN - 01/15/2018 1:14 PM EDT Left message for Lc Hull# [phone]- director of [facility]. Left voice mail for Carissa Posada, Chief of Developmental Services for the [facility]. [phone]. Tricia Gerber RN Case Paste Up Artist of Care Management [email or web address] Pager: [phone] * Adia Clarke RN - 01/15/2018 10:34 [...] pain or SOB. No acute concerns from PHYS THER but notices still some unsteadiness with gait. [...] presumed environmental given change from his normal halfway to the variably hospital situation. Had been [...] clarify if able to return to current halfway and may need to explore other options [...] paralysis, and seizure disorder. -decreased hydrocortisone from 20/10 to 20/10 per endocrine on 11/16 -increased [...] none DVT PPX: SCD Anticipated Disposition: Currently halfway does not seem feasible - needs to be able to (at a minimum) walk to the bathroom and go up/down 13 stairs (which mimics the current living situation at his halfway). Per our SW, [facility] is discussing options but no current viable option. SNFs declined. Team Pager( Coverage 27/01): # [phone] PCP: NAKIA Cifuentes [phone] Attestation: IPI Certification I certify that I [...] IPI criteria and is awaiting rehabilitation or senior living facility placement withactive referrals in process Crista [...] presumed environmental given change from his normal halfway to the variably hospital situation. Had been [...] clarify if able to return to current halfway and may need to explore other options [...] SCD Anticipated Disposition: SNF vs back to halfway --> no longer being seen by PT/OT, he continues to take a few steps with assistance and using a walker but needs to be able to (at a minimum) walk to the bathroom and go up/down 13 stairs (which mimics the current living situation at his halfway) Team Pager( Coverage 27/01): # [phone] PCP: NAKIA Cifuentes [phone] Attestation: IPI Certification I certify that I [...] IPI criteria and is awaiting rehabilitation or senior living facility placement withactive referrals in process Crista Aguilar MD 01/13/2018 * Tricia Gerber RN - 01/12/2018 4:32 PM EDT Received call from Carissa Posada, Chief of Developmental Services for the [facility]. [phone]. Stated they are having a large meeting with the state today to help findappropriate housing for Miguel Angel. Reports they should have an update on plan by 01/13/18. Tricia Gerber RN Case Paste Up Artist of Care Management [email or web address] Pager: [phone] * Guerrero Bah MD - 01/12/2018 4:29 PM EDT Images from the original note were not included. Brief Endocrinology Follow up note Name: Miguel Angel Mason Date: 01/12/18 Room: [address] [place] [address] HPI: Miguel Angel Mason??is a 27 y.o.male??with [...] MD Endocrinology, Diabetes and Metabolism Fellow Pager #[phone] 01/12/2018 * Crista Aguilar MD - 01/12/2018 [...] presumed environmental given change from his normal halfway to the variably hospital situation. Stopped opioids [...] clarify if able to return to current halfway and may need to explore other options [...] SCD Anticipated Disposition: SNF vs back to halfway --> no longer being seen by PT/OT, he continues to take a few steps with assistance and using a walker but needs to be able to (at a minimum) walk to the bathroom and go up/down 13 stairs (which mimics the current living situation at his halfway) Team Pager( Coverage 27/01): # [phone] PCP: NAKIA Cifuentes [phone] Attestation: IPI Certification I certify that I [...] IPI criteria and is awaiting rehabilitation or senior living facility placement withactive referrals in process Crista Aguilar MD 01/12/2018 * Critsa Aguilar MD - 01/11/2018 12:26 PM EDT [...] presumed environmental given change from his normal halfway to the variably hospital situation. Stopped opioids [...] clarify if able to return to current halfway and may need to explore other options [...] SCD Anticipated Disposition: SNF vs back to halfway --> no longer being seen by PT/OT, he continues to take a few steps with assistance and using a walker but needs to be able to (at a minimum) walk to the bathroom and go up/down 13 stairs (which mimics the current living situation at his halfway) Team Pager( Coverage 27/01): # [phone] PCP: NAKIA Cifuentes [phone] Attestation: IPI Certification I certify that I [...] IPI criteria and is awaiting rehabilitation or senior living facility placement withactive referrals in process Crista [...] presumed environmental given change from his normal halfway to the variably hospital situation. Stopped opioids [...] clarify if able to return to current halfway and may need to explore other options [...] SCD Anticipated Disposition: SNF vs back to halfway --> no longer being seen by PT/OT, he continues to take a few steps with assistance and using a walker but needs to be able to (at a minimum) walk to the bathroom and go up/down 13 stairs (which mimics the current living situation at his halfway) Team Pager( Coverage 27/01): # [phone] PCP: NAKIA Cifuentes [phone] Attestation: IPI Certification I certify that I [...] IPI criteria and is awaiting rehabilitation or senior living facility placement withactive referrals in process Crista Aguilar MD 01/10/2018 * Yadi Mccauley MD - 01/10/2018 11:39 AM EDT Images from the original note were not included. Endocrinology Follow up note Name: Miguel Angel Mason Date: 01/10/18 Room: [address] [place] [address]A HPI: Miguel Angel Mason??is a 27 y.o.male??with [...] History: Procedure Laterality Date ??? PRO OPEN ATHLETIC EQUIPMENT MANAGER FIX ACETABULAR FX Left 09/04/2017 @OPEN TREATMENT, ACETABULAR FX (WRVU 25.41) performed by Amy Lance MD at [facility] MAIN OR No family history on [...] MD Endocrinology, Diabetes and Metabolism Fellow Pager #[phone] 01/10/2018 I have seen the patient and reviewed Dr. Guerrero Nick's above history and I agree with the details as written. The assessment and plan were formulated in discussion with me and I agree with them as documented. Yadi Mccauley MD, PhD, FACP, FACE * Tricia Gerber, RN - 01/09/2018 3:02 PM EDT Left message for Subha Tejeda # [phone]- nurse who oversees halfway. Left message for Lc Hull# [phone]- director of [facility] Human Services. Called town offices in [place], [place] . They do not know of any other facilities that could accommodate patient needs. Left voice mail for Carissa Posada, Chief of Developmental Services for the [facility] of Human Services. [phone]. Case management will continue to follow. Tricia Gerber principal technical writer Office of Care Management [email or web address] Pager: [phone] * Maldonado Salazar MD - 01/09/2018 11:43 [...] History / ROS: - quietly listening to [employer] book this morning Physical Exam Vitals Range [...] presumed environmental given change from his normal halfway to the variably hospital situation. Stopped opioids [...] SCD Anticipated Disposition: SNF vs back to halfway --> no longer being seen by PT/OT, he continues to take a few steps with assistance and using a walker but needs to be able to (at a minimum) walk to the bathroom and go up/down 13 stairs (which mimics the current living situation at his halfway) Team Pager( Coverage 27/01): # [phone] PCP: NAKIA Cifuentes [phone] Attestation: IPI Certification I certify that I [...] IPI criteria and is awaiting rehabilitation or senior living facility placement withactive referrals in process Maldonado [...] seen for nutrition follow up. Spoke with PHYS THER who reported a good appetite that has been ongoing. No difficulty chewing or swallowing. No nausea or vomiting reported. PHYS THER requestedhealthy snacks at bedside: carrot sticks, celery stick, cheese and grapes & apples - will add to nourshments each day. PHYS THER had no questions or concerns at this [...] SCD Anticipated Disposition: SNF vs back to halfway --> no longer being seen by PT/OT, he continues to take a few steps with assistance and using a walker but needs to be able to (at a minimum) walk to the bathroom and go up/down 13 stairs (which mimics the current living situation at his halfway) Team Pager( Coverage 27/01): # [phone] PCP: NAKIA Cifuentes [phone] Attestation: IPI Certification I certify that I [...] IPI criteria and is awaiting rehabilitation or senior living facility placement withactive referrals in process Maldonado [...] SCD Anticipated Disposition: SNF vs back to halfway --> no longer being seen by PT/OT, he continues to take a few steps with assistance and using a walker but needs to be able to (at a minimum) walk to the bathroom and go up/down 13 stairs (which mimics the current living situation at his halfway) Team Pager( Coverage 27/01): # [phone] PCP: NAKIA Cifuentes [phone] Attestation: IPI Certification I certify that I [...] IPI criteria and is awaiting rehabilitation or senior living facility placement withactive referrals in process Maldonado Salazar MD 01/07/2018 * Mladonado Salazar MD - 01/06/2018 12:43 PM EDT [facility] Medicine Attending Daily Progress Note Admit [...] something he normally likes to do at halfway, then try to avail him ofthat here. [...] on 11/16 -increased synthroid to 200 mcg 5/20. ? -seizures managed with home zonisamide 200mg [...] SCD Anticipated Disposition: SNF vs back to halfway pending progress with PT/OT --> need to discuss ongoing therapy involvement as he has not been seen in several days, at a minimum he needs to walk to bathroom and go up/down 13 stairs (which mimics the current living situation at his halfway) Team Pager( Coverage 27/01): # [phone] PCP: NAKIA Cifuentes [phone] Attestation: IPI Certification I certify that I [...] IPI criteria and is awaiting rehabilitation or senior living facility placement withactive referrals in process Maldonado Salazar MD 01/06/2018 * Yadi Mccauley MD - 01/06/2018 9:57 AM EDT Images from the original note were not included. Endocrinology Follow up note Name: Miguel Angel Mason Date: 01/06/18 Room: [address] [place] [address]A HPI: Miguel Angel Mason??is a 27 y.o.male??with [...] History: Procedure Laterality Date ??? PRO OPEN ATHLETIC EQUIPMENT MANAGER FIX ACETABULAR FX Left 09/04/2017 @OPEN TREATMENT, ACETABULAR FX (WRVU 25.41) performed by Amy Lance MD at [facility] MAIN OR No family history on [...] MD Endocrinology, Diabetes and Metabolism Fellow Pager #[phone] 01/06/2018 I have seen the patient and [...] something he normally likes to do at halfway, then try to avail him ofthat here. [...] SCD Anticipated Disposition: SNF vs back to halfway pending progress with PT/OT --> need to discuss ongoing therapy involvement as he has not been seen in several days, at a minimum he needs to walk to bathroom and go up/down 13 stairs (which mimics the current living situation at his halfway) Team Pager( Coverage 27/01): # [phone] PCP: NAKIA Cifuentes [phone] Attestation: IPI Certification I certify that I [...] IPI criteria and is awaiting rehabilitation or senior living facility placement withactive referrals in process Maldonado Salazar MD 01/05/2018 * Yadi Mccauley MD - 01/05/2018 9:51 AM EDT Images from the original note were not included. Endocrinology Follow up note Name: Miguel Angel Mason Date: 01/05/18 Room: [address] [place] [address] HPI: Miguel Angel Mason??is a 27 y.o.male??with [...] History: Procedure Laterality Date ??? PRO OPEN ATHLETIC EQUIPMENT MANAGER FIX ACETABULAR FX Left 09/04/2017 @OPEN TREATMENT, ACETABULAR FX (WRVU 25.41) performed by Amy Lance MD at [facility] MAIN OR No family history on [...] MD Endocrinology, Diabetes and Metabolism Fellow Pager #[phone] 01/05/2018 Spoke with primary team. We recommend [...] something he normally likes to do at halfway, then try to avail him ofthat here. [...] SCD Anticipated Disposition: SNF vs back to halfway pending progress with PT/OT Team Pager( Coverage 27/01): # [phone] PCP: NAKIA Cifuentes [phone] Attestation: IPI Certification I certify that I am a D-H credentialed attending provider with admitting privileges and that the patient meets or has met medical necessity to require an inpatient IPI level of care meeting a minimumof two midnights or is on the [facility] inpatient only procedure list (status C) due to: the patient has met Inpatient IPI criteria and is awaiting rehabilitation or senior living facility placement withactive referrals in process Maldonado Salazar MD 01/04/2018 * Lindsey Walsh, DO - 01/04/2018 9:54 AM EDT Images from the original note were not included. ENDOCRINOLOGY FOLLOW UP INPATIENT NOTE [facility] Name: Miguel Angel Mason Date of [...] History: Procedure Laterality Date ??? PRO OPEN ATHLETIC EQUIPMENT MANAGER FIX ACETABULAR FX Left 09/04/2017 @OPEN TREATMENT, ACETABULAR FX (WRVU 25.41) performed by Amy Lance MD at [facility] MAIN OR Allergies Allergen Reactions ??? [...] with 3.2L fluid restriction was recommended to pss delivery professional provider overnight. We continue to recommend this regimen which has been proven effective previously. Plan: --- Continue DDAVP 0.05 mg TID --- Resume 3.2L fluid restriction --- Daily sodium checks --- Please contact endocrinology with any change in DDAVP dose Thank you for allowing us participate in the care of this patient. Patient was discussed with the attending provider, Dr. Page. Lindsey Walsh DO Endocrinology, Diabetes and Metabolism Fellow 01/04/2018 [...] the on-call Endocrinology service. GENEVIEVE PAGE MD Computer Game Designerchef & owner Section of Endocrinology [facility] * Maldonado Salazar MD - 01/03/2018 12:31 PM EDT [facility] Medicine Attending Daily Progress Note Admit [...] something he normally likes to do at halfway, then try to avail him ofthat here. [...] on 11/16 -increased synthroid to 200 mcg 5/20. ? -seizures managed with home zonisamide 200mg [...] SCD Anticipated Disposition: SNF vs back to halfway pending progress with PT/OT Team Pager( Coverage 27/01): # [phone] PCP: NAKIA Cifuentes [phone] Attestation: IPI Certification I certify that I [...] IPI criteria and is awaiting rehabilitation or senior living facility placement withactive referrals in process Maldonado [...] something he normally likes to do at halfway, then try to avail him ofthat here. [...] SCD Anticipated Disposition: SNF vs back to halfway pending progress with PT/OT Team Pager( Coverage 27/01): # [phone] PCP: NAKIA Cifuentes [phone] Attestation: IPI Certification I certify that I am a D-H credentialed attending provider with admitting privileges and that the patient meets or has met medical necessity to require an inpatient IPI level of care meeting a minimumof two midnights or is on the [facility] inpatient only procedure list (status C) due to: the patient has met Inpatient IPI criteria and is awaiting rehabilitation or senior living facility placement withactive referrals in process FRAN GILLIAM MD 01/03/2018 * Lindsey Walsh, - 01/02/2018 11:00 AM EDT Images from the original note were not included. ENDOCRINOLOGY FOLLOW UP INPATIENT NOTE [facility] Name: Miguel Angel Mason Date of [...] History: Procedure Laterality Date ??? PRO OPEN ATHLETIC EQUIPMENT MANAGER FIX ACETABULAR FX Left 09/04/2017 @OPEN TREATMENT, ACETABULAR FX (WRVU 25.41) performed by Amy Lance MD at [facility] MAIN OR Allergies Allergen Reactions ??? [...] agree with this plan. GENEVIEVE PAGE MD Computer Game Designerchef & owner Section of Endocrinology [facility] * Fran Gilliam MD [...] something he normally likes to do at halfway, then try to avail him ofthat here. [...] SCD Anticipated Disposition: SNF vs back to halfway pending progress with PT/OT Team Pager( Coverage 27/01): # [phone] PCP: NAKIA Cifuentes [phone] Attestation: IPI Certification I certify that I [...] IPI criteria and is awaiting rehabilitation or senior living facility placement withactive referrals in process FRAN GILLIAM MD 01/01/2018 * Chavez Kelsey RN - 01/01/2018 3:14 PM EDT OFFICE OF CARE MANAGEMENT Met briefly with miguel angel this afternoon. He is in bed and appears very agitated and upset at this time. CM call to Lc Hull- [phone].x 2. VM left with CM contact to f/u and discuss state assistance for appropriate placement for this gentleman. He does not appear to require further formal PT. He has been cleared to walk with nursing. He is currently 2 person assist on stairs. Pt is unable to return to halfway setting as his bedroom is second level [...] something he normally likes to do at halfway, then try to avail him ofthat here. [...] SCD Anticipated Disposition: SNF vs back to halfway pending progress with PT/OT Team Pager( Coverage 27/01): # [phone] PCP: NAKIA Cifuentes [phone] Attestation: IPI Certification I certify that I [...] IPI criteria and is awaiting rehabilitation or senior living facility placement withactive referrals in process FRAN [...] something he normally likes to do at halfway, then try to avail him ofthat here. [...] SCD Anticipated Disposition: SNF vs back to halfway pending progress with PT/OT Team Pager( Coverage 27/01): # [phone] PCP: NAKIA Cifuentes [phone] Attestation: IPI Certification I certify that I [...] IPI criteria and is awaiting rehabilitation or senior living facility placement withactive referrals in process FRAN [...] monitor status. Murtaza Bruce PT, DPT Pager [phone] Inpatient Rehabilitation * Skyla Ayala, OT - [...] participation as able. Skyla Ayala, OTR Pager [phone] * Fran Gilliam MD - 12/29/2017 1:08 [...] PLATELET [phone] Recent Labs 12/29/17 0357 12/28/17 2027 12/28/17 0508 12/28/17 0004 12/25/17 0550 12/23/17 [...] something he normally likes to do at halfway, then try to avail him ofthat here. [...] SCD Anticipated Disposition: SNF vs back to halfway pending progress with PT/OT Team Pager(MD Coverage 27/01): # [phone] PCP: NAKIA Cifuentes [phone] Attestation: IPI Certification I certify that I am a D-H credentialed attending provider with admitting privileges and that the patient meets or has met medical necessity to require an inpatient IPI level of care meeting a minimumof two midnights or is on the [facility] inpatient only procedure list (status C) due to: the patient has met Inpatient IPI criteria and is awaiting rehabilitation or senior living facility placement withactive referrals in process FRAN GILLIAM MD 12/29/2017 * Tricia Gerber, RN - 12/29/2017 11:15 AM EDT Left another voice mail for Subha Hoytnora [phone] at [employer]. Request additionalinformation regarding halfway/ sitters/ developmental services waiver. [facility] has requested to remove the sitters they have been providing as they are getting burnedout and don't feel they are needed any more. Spoke with Lc Hull ([facility] Injection Moulding Machine Operator) at [phone]. He reports that having sitters here or not does not affect pateints funding. States what may affect his funding is length of time spent in the hospital. Reports funding can end after 90 days in hospital. [facility] department of aging and independent living [...] reports that Naheed Estrella was working with [facility] on an agreement. Informed him that per [facility] liaison, patient is a regional denial. States he was not aware of that. Explained that patient is medically ready, in need of placement, and request assistance with placement. He reports that he will send RN out to review and determine if he is possibly ready for return to halfway. Case management will continue to follow. Tricia Gerber RN Case Paste Up Artist of Care Management [email or web address] Pager: [phone] * Fran Gilliam MD - 12/28/2017 2:09 [...] SKIN: Warm/dry, no rash Studies reviewed in eD. Remarkable for the following: LABS: Recent Labs [...] something he normally likes to do at halfway, then try to avail him ofthat here. [...] SCD Anticipated Disposition: SNF vs back to halfway pending progress with PT/OT Team Pager( Coverage 27/01): # [phone] PCP: NAKIA Cifuentes [phone] Attestation: IPI Certification I certify that I [...] IPI criteria and is awaiting rehabilitation or senior living facility placement withactive referrals in process FRAN GILLIAM MD 12/28/2017 * Ren Dumont MD - 12/28/2017 11:04 AM EDT Images from the original note were not included. Endocrinology Follow up note Name: Miguel Angel Mason Date: 12/28/17 Room: [address] [place] [address] HPI: Miguel Angel Mason is a 27 [...] History: Procedure Laterality Date ??? PRO OPEN ATHLETIC EQUIPMENT MANAGER FIX ACETABULAR FX Left 09/04/2017 @OPEN TREATMENT, ACETABULAR FX (WRVU 25.41) performed by Amy Lance MD at [facility] MAIN OR No family history on [...] MD Endocrinology, Diabetes and Metabolism Fellow Pager #[phone] 12/28/2017 I have disucssed patient with Dr. [...] something he normally likes to do at halfway, then try to avail him of that [...] SCD Anticipated Disposition: SNF vs back to halfway pending progress with PT/OT Team Pager( Coverage 27/01): # [phone] PCP: NAKIA Cifuentes [phone] Attestation: IPI Certification I certify that I am a D-H credentialed attending provider with admitting privileges and that the patient meets or has met medical necessity to require an inpatient IPI level of care meeting a minimumof two midnights or is on the [facility] inpatient only procedure list (status C) due to: the patient has met Inpatient IPI criteria and is awaiting rehabilitation or senior living facility placement withactive referrals in process FRAN [...] Name: Miguel Angel Mason Date: 12/26/17 Room: [address] [place] [address] HPI: Miguel Angel Mason is a 27 [...] History: Procedure Laterality Date ??? PRO OPEN ATHLETIC EQUIPMENT MANAGER FIX ACETABULAR FX Left 09/04/2017 @OPEN TREATMENT, ACETABULAR FX (WRVU 25.41) performed by Amy Lance MD at [facility] MAIN OR No family history on [...] recommend stimulating PO intake. Nurse and rn wound care think this is possible and will make [...] MD Endocrinology, Diabetes and Metabolism Fellow Pager #[phone] 12/26/2017 I have discussed patient with Dr. [...] anemia due to acute blood loss 12/09/2017 [facility] Active Non-Hospital Problems Diagnosis ??? [...] something he normally likes to do at halfway, then try to avail him of that [...] Disposition: SNF Team Pager( Coverage 27/01): # [phone] PCP: NAKIA Cifuentes [phone] Attestation: IPI Certification I certify that I [...] IPI criteria and is awaiting rehabilitation or senior living facility placement withactive referrals in process José Miguel Maher MD 12/26/2017 * Debbie Keller DT - 12/25/2017 3:36 PM EDT Nutrition Services - Follow-up Note Miguel Angel D Isabella : 1990 AGE: 27 y.o. Patient [...] left acetabulum fracture 09/04/2017 Dr. Lacne ??? Acute urinary retention ??? Diabetes insipidus [...] something he normally likes to do at halfway, then try to avail him of that [...] seizure disorder. -decreased hydrocortisone from 25/04/ to 20 per endocrine on 11/16 -increased [...] Disposition: SNF Team Pager( Coverage 27/01): # [phone] PCP: NAKIA Cifuentes [phone] Attestation: IPI Certification I certify that I [...] IPI criteria and is awaiting rehabilitation or senior living facility placement withactive referrals in process José [...] something he normally likes to do at halfway, then try to avail him of that [...] Disposition: SNF Team Pager( Coverage 27/01): # [phone] PCP: NAKIA Cifuentes [phone] Attestation: IPI Certification I certify that I [...] IPI criteria and is awaiting rehabilitation or senior living facility placement withactive referrals in process José Miguel Maher MD 12/24/2017 * Tricia Gerber RN - 12/24/2017 11:13 AM EDT Case reviewed in eDH and with interdisciplinary team. Patient being reviewed for placement at [facility]. Placement is currently on hold due to lack of sitter. Spoke with halfway director Lali [phone]. [facility] has been providing sitter for patient during daytime hours. She asked if they could withdraw sitter as [facility] is also providing a sitter at all times. Informed her of plan for transition to [facility]. She reports that [facility] is too far to send halfway sitters up there. She stated that [facility] has made an agreement with [facility] for rehab there. Process Steward spoke with [facility] liaison who stated they have not accepted him as he is a [facility] denial. Left voice mail for Allison Mojica ([facility] for [facility] Fdc Trolley Collector) [phone]. Request call back with update of [facility] plans for placement. Case management will continue to follow and assist with discharge planning needs. Tricia Gerber RN Case Paste Up Artist of Care Management Pager: [phone] * Tricia Gerber RN - 12/23/2017 3:48 PM EDT Case reviewed with interdisciplinary team. Patient continues to be medically ready. Plan is for possible transfer to [facility] Swing. Per note from [place] today transfer is currently still on hold as we do not have designated sitters. Patient has required 1-2 sitters while in hospital. One is provided by [facility] and the other is provided by [facility] residential care [facility]. Case management will continue to follow. Tricia Gerber RN Case Paste Up Artist of Care Management [email or web address] Pager: [phone] * José Miguel Maher MD - 12/23/2017 [...] something he normally likes to do at halfway, then try to avail him of that [...] Disposition: SNF Team Pager( Coverage 27/01): # [phone] PCP: NAKIA Cifuentes [phone] Attestation: IPI Certification I certify that I [...] IPI criteria and is awaiting rehabilitation or senior living facility placement withactive referrals in process José [...] something he normally likes to do at halfway, then try to avail him of that [...] Disposition: SNF Team Pager( Coverage 27/01): # [phone] PCP: NAKIA Cifuentes [phone] Attestation: IPI Certification I certify that I [...] IPI criteria and is awaiting rehabilitation or senior living facility placement withactive referrals in process José Miguel Maher MD 12/22/2017 * Tricia Gerber RN - 12/22/2017 11:18 AM EDT Based on discussions with the multi-disciplinary healthcare team, the patient would benefit from SNF level of care at discharge. ?? I have met with the patient/outbound sales representative to discuss discharge planning needs. I have provided the [facility], Office of Care Management letter from the [employer] pertaining to rehab referrals. I have also provided a letter describing our affiliations within the [facility] and educated them about their right to choose where referrals are placed. ?? I reviewed the different levels of rehab including SNF, swing, acute and LTAC with the patient/outbound sales representative. ?? The patient/outbound sales representative has been provided a list of facilities within their preferred geographic area. ?? I have requested that the patient/outbound sales representative provide at least three choices for referral. ?? The patient/outbound sales representative have requested referrals to: 1. [facility] [address] [place] [address] ?? [phone] ? Expected date of discharge: Medically ready Note routed to [employer] who will communicate referrals to facilities and [...] anemia due to acute blood loss 12/09/2017 [facility] Active Non-Hospital Problems Diagnosis ??? [...] something he normally likes to do at halfway, then try to avail him of that [...] Disposition: SNF Team Pager( Coverage 27/01): # [phone] PCP: NAKIA Cifuentes [phone] Attestation: IPI Certification I certify that I [...] IPI criteria and is awaiting rehabilitation or senior living facility placement withactive referrals in process José [...] something he normally likes to do at halfway, then try to avail him of that [...] Disposition: SNF Team Pager(MD Coverage 27/01): # [phone] PCP: NAKIA Cifuentes [phone] Attestation: IPI Certification I certify that I [...] IPI criteria and is awaiting rehabilitation or senior living facility placement withactive referrals in process José Miguel Maher MD 12/20/2017 * Fran Gilliam MD - 12/19/2017 1:10 PM EDT [facility] Medicine Attending Daily Progress Note Admit Date: 09/02/2017 Hospital Day 109 days Active Hospital Problems Diagnosis ??? S/P ORIF left acetabulum fracture 09/04/2017 Dr. Gitajn ??? Acute urinary retention ??? Diabetes insipidus ??? Adrenal insufficiency ??? Panhypopituitarism ??? Seizure disorder ??? Hypothyroidism Resolved Hospital Problems Diagnosis Date Resolved ??? Postoperative anemia due to acute blood loss 12/09/2017 [facility] Active Non-Hospital Problems Diagnosis ??? [...] %] Intake/Output Summary (Last 24 hours) at 12/20/17226 Last data filed at 12/19/172008 Gross per [...] something he normally likes to do at halfway, then try to avail him of that [...] behaviors (rehabilitation) and inability to climb stairs (halfway) - continue to try to make progress w/ measures described above and ongoing PT/OT Team Pager( Coverage 27/01): #[phone] PCP: NAKIA Cifuentes [phone] Attestation: IPI Certification I certify that I am a D-H credentialed attending provider with admitting privileges and that the patient meets or has met medical necessity to require an inpatient IPI level of care meeting a minimumof two midnights or is on the [facility] inpatient only procedure list (status C) [...] something he normally likes to do at halfway, then try to avail him of that [...] behaviors (rehabilitation) and inability to climb stairs (halfway) - continue to try to make progress w/ measures described above and ongoing PT/OT Team Pager( Coverage 27/01): #[phone] PCP: NAKIA Cifuentes [phone] Attestation: IPI Certification I certify that I [...] be re-tasked at discharge - please page #[phone] prior to discharge so follow up can be arranged Kris Mcghee MD, PGY-1 Orthopaedic Surgery Pager #: [phone] No future appointments. Associated attestation - Amy [...] minutes Total timed interventions: 0 minutes Pager: [phone] [facility] PTA Physical Therapy Rehabilitation Department [...] Gilliam MD - 12/17/2017 1:15 PM EDT Hospital Medicine Attending Daily Progress [...] something he normally likes to do at halfway, then try to avail him of that [...] behaviors (rehabilitation) and inability to climb stairs (halfway) - continue to try to make progress w/ measures described above and ongoing PT/OT Team Pager( Coverage 27/01): #[phone] PCP: NAKIA Cifuentes [phone] Attestation: IPI Certification I certify that I am a D-H credentialed attending provider with admitting privileges and that the patient meets or has met medical necessity to require an inpatient IPI level of care meeting a minimumof two midnights or is on the [facility] inpatient only procedure list (status C) due to: Acetabular fx and hypernatremia FRAN GILLIAM MD 12/17/2017 * Tricia Gerber RN - 12/17/2017 10:27 AM EDT Based on discussions with the multi-disciplinary healthcare team, the patient would benefit from rehab at discharge. ?? OCM requested referrals to: ?? [address]. [place] [address] ?? [phone] ? Expected date of discharge: Medically ready Note routed to [employer] who will communicate referrals to facilities and provide any required information. * Tricia Gerber RN - 12/16/2017 3:08 PM EDT Subha Tejeda [phone] (RN of [facility] who oversees the halfway). She reports she is working on finding [...] Case management will continue to follow. Tricia Gerber, principal technical writer Office of Care Management [email or web address] Pager: [phone] * Fran Gilliam MD - 12/16/2017 11:40 [...] something he normally likes to do at halfway, then try to avail him of that [...] behaviors (rehabilitation) and inability to climb stairs (halfway) - continue to try to make progress w/ measures described above and ongoing PT/OT Team Pager( Coverage 27/01): #[phone] PCP: NAKIA Cifuentes [phone] Attestation: IPI Certification I certify that I [...] Gilliam MD - 12/15/2017 4:50 PM EDT [facility] Medicine Attending Daily Progress Note Admit Date: 09/02/2017 Hospital Day 104 days Active Hospital Problems Diagnosis ??? S/P ORIF left acetabulum fracture 09/04/2017 Dr. Lance ??? Acute urinary retention ??? Diabetes insipidus ??? Adrenal insufficiency ??? Panhypopituitarism ??? Seizure disorder ??? Hypothyroidism Resolved Hospital Problems Diagnosis Date Resolved ??? Postoperative anemia due to acute blood loss 12/09/2017 [facility] Active Non-Hospital Problems Diagnosis ??? [...] something he normally likes to do at halfway, then try to avail him of that [...] behaviors (rehabilitation) and inability to climb stairs (halfway) - continue to try to make progress w/ measures described above and ongoing PT/OT Team Pager( Coverage 27/01): #[phone] PCP: NAKIA Cifuentes [phone] Attestation: IPI Certification I certify that I am a D-H credentialed attending provider with admitting privileges and that the patient meets or has met medical necessity to require an inpatient IPI level of care meeting a minimumof two midnights or is on the [facility] inpatient only procedure list (status C) [...] something he normally likes to do at halfway, then try to avail him of that [...] behaviors (rehabilitation) and inability to climb stairs (halfway) - continue to try to make progress w/ measures described above and ongoing PT/OT Team Pager( Coverage 27/01): #[phone] PCP: NAKIA Cifuentes [phone] Attestation: IPI Certification I certify that I am a D-H credentialed attending provider with admitting privileges and that the patient meets or has met medical necessity to require an inpatient IPI level of care meeting a minimumof two midnights or is on the [facility] inpatient only procedure list (status C) [...] something he normally likes to do at halfway, then try to avail him of that [...] behaviors (rehabilitation) and inability to climb stairs (halfway) - continue to try to make progress w/ measures described above and ongoing PT/OT Team Pager( Coverage 27/01): #[phone] PCP: NAKIA Cifuentes [phone] Attestation: IPI Certification I certify that I am a D-H credentialed attending provider with admitting privileges and that the patient meets or has met medical necessity to require an inpatient IPI level of care meeting a minimumof two midnights or is on the [facility] inpatient only procedure list (status C) [...] anemia due to acute blood loss 12/09/2017 [facility] Active Non-Hospital Problems Diagnosis ??? [...] something he normally likes to do at halfway, then try to avail him of that [...] behaviors (rehabilitation) and inability to climb stairs (halfway) - continue to try to make progress w/ measures described above and ongoing PT, respectively Team Pager(MD Coverage 27/01): #[phone] PCP: NAKIA Cifuentes [phone] Attestation: IPI Certification I certify that I am a D-H credentialed attending provider with admitting privileges and that the patient meets or has met medical necessity to require an inpatient IPI level of care meeting a minimumof two midnights or is on the [facility] inpatient only procedure list (status C) due to: Acetabular fx and hypernatremia PCP: NAKIA Cifuentes [phone] DANAY MONGE MD 12/12/2017 * Danay Monge [...] something he normally likes to do at halfway, then try to avail him of that [...] behaviors (rehabilitation) and inability to climb stairs (halfway) - continue to try to make progress w/ measures described above and ongoing PT, respectively Team Pager( Coverage 27/01): #[phone] PCP: NAKIA Cifuentes [phone] Attestation: IPI Certification I certify that I am a D-H credentialed attending provider with admitting privileges and that the patient meets or has met medical necessity to require an inpatient IPI level of care meeting a minimumof two midnights or is on the [facility] inpatient only procedure list (status C) due to: Acetabular fx and hypernatremia PCP: NAKIA Cifuentes [phone] DANAY MONGE MD 12/11/2017 * Danay Monge MD - 12/10/2017 12:12 PM EDT [facility] Medicine Attending Daily Progress Note Admit [...] something he normally likes to do at halfway, then try to avail him of that [...] behaviors (rehabilitation) and inability to climb stairs (halfway) - continue to try to make progress w/ measures described above and ongoing PT, respectively Team Pager( Coverage 27/01): #[phone] PCP: NAKIA Cifuentes [phone] Attestation: IPI Certification I certify that I am a D-H credentialed attending provider with admitting privileges and that the patient meets or has met medical necessity to require an inpatient IPI level of care meeting a minimumof two midnights or is on the [facility] inpatient only procedure list (status C) due to: Acetabular fx and hypernatremia PCP: NAKIA Cifuentes [phone] DANAY MONGE MD 12/10/2017 * Ren Sanchez [...] something he normally likes to do at halfway, then try to avail him of that [...] behaviors (rehabilitation) and inability to climb stairs (halfway) - continue to try to make progress w/ measures described above and ongoing PT, respectively Team Pager( Coverage 27/01): #[phone] PCP: NAKIA Cifuentes [phone] Attestation: IPI Certification I certify that I am a D-H credentialed attending provider with admitting privileges and that the patient meets or has met medical necessity to require an inpatient IPI level of care meeting a minimumof two midnights or is on the [facility] inpatient only procedure list (status C) due to: Acetabular fx and hypernatremia PCP: NAKIA Cifuentes [phone] REN SANCHEZ III, MD 12/09/2017 * Danay [...] something he normally likes to do at halfway, then try to avail him of that [...] behaviors (rehabilitation) and inability to climb stairs (halfway) - continue to try to make progress w/ measures described above and ongoing PT, respectively Team Pager( Coverage 27/01): #[phone] PCP: NAKIA Cifuentes [phone] Attestation: IPI Certification I certify that I am a D-H credentialed attending provider with admitting privileges and that the patient meets or has met medical necessity to require an inpatient IPI level of care meeting a minimumof two midnights or is on the [facility] inpatient only procedure list (status C) due to: Acetabular fx and hypernatremia PCP: NAKIA Cifuentes [phone] DANAY MONGE MD 12/08/2017 * Danay Monge [...] Date Resolved No resolved problems to display. [facility] Active Non-Hospital Problems Diagnosis ??? [...] something he normally likes to do at halfway, then try to avail him of that [...] behaviors (rehabilitation) and inability to climb stairs (halfway) - continue to try to make progress w/ measures described above and ongoing PT, respectively Team Pager( Coverage 27/01): #[phone] PCP: NAKIA Cifuentes [phone] Attestation: IPI Certification I certify that I am a D-H credentialed attending provider with admitting privileges and that the patient meets or has met medical necessity to require an inpatient IPI level of care meeting a minimumof two midnights or is on the [facility] inpatient only procedure list (status C) due to: Acetabular fx and hypernatremia PCP: NAKIA Cifuentes [phone] DANAY MONGE MD 12/07/2017 * Danay Monge [...] something he normally likes to do at halfway, then try to avail him of that [...] behaviors (rehabilitation) and inability to climb stairs (halfway) - continue to try to make progress w/ measures described above and ongoing PT, respectively Team Pager( Coverage 27/01): #[phone] PCP: NAKIA Cifuentes [phone] Attestation: IPI Certification I certify that I am a D-H credentialed attending provider with admitting privileges and that the patient meets or has met medical necessity to require an inpatient IPI level of care meeting a minimumof two midnights or is on the [facility] inpatient only procedure list (status C) due to: Acetabular fx and hypernatremia PCP: NAKIA Cifuentes [phone] DANAY MONGE MD 12/06/2017 * Constantino Courtney MD - 12/05/2017 2:35 PM EDT [facility] Attending Daily Progress Note Admit [...] something he normally likes to do at halfway, then try to avail him of that [...] endocrinology recommendations. -Decreased hydrocortisone from 25/04/10 to 20/ per endocrine on 11/16 -Increased synthroid to [...] behaviors (rehabilitation) and inability to climb stairs (halfway) - continue to try to make progress w/ measures described above and ongoing PT, respectively Team Pager( Coverage 27/01): #[phone] PCP: NAKIA Cifuentes [phone] Attestation: IPI Certification I certify that I [...] something he normally likes to do at halfway, then try to avail him of that [...] something he normally likes to do at halfway, then try to avail him of that [...] behaviors (rehabilitation) and inability to climb stairs (halfway) - continue to try to make progress w/ measures described above and ongoing PT, respectively Team Pager( Coverage 27/01): #[phone] PCP: NAKIA Cifuentes [phone] Attestation: IPI Certification I certify that I am a D-H credentialed attending provider with admitting privileges and that the patient meets or has met medical necessity to require an inpatient IPI level of care meeting a minimumof two midnights or is on the [facility] inpatient only procedure list (status C) [...] something he normally likes to do at halfway, then try to avail him of that [...] something he normally likes to do at halfway, then try to avail him of that [...] behaviors (rehabilitation) and inability to climb stairs (halfway) - continue to try to make progress w/ measures described above and ongoing PT, respectively Team Pager( Coverage 27/01): #[phone] PCP: NAKIA Cifuentes [phone] Attestation: IPI Certification I certify that I am a D-H credentialed attending provider with admitting privileges and that the patient meets or has met medical necessity to require an inpatient IPI level of care meeting a minimumof two midnights or is on the [facility] inpatient only procedure list (status C) due to: Acetabular fx and hypernatremia FRAN GILLIAM MD 12/03/2017 * Yadi Mccauley MD - 12/03/2017 2:25 PM EDT ENDOCRINOLOGY FOLLOW UP INPATIENT NOTE [facility] Name: Miguel Angel Mason Date of [...] suspect left hip pain. Per bedside rn wound care, fluid restriction of 3.2L is being maintained. Urination is unchanged but unable to be truly tracked. Past Surgical History: Procedure Laterality Date ??? PRO OPEN ATHLETIC EQUIPMENT MANAGER FIX ACETABULAR FX Left 09/04/2017 @OPEN TREATMENT, ACETABULAR FX (WRVU 25.41) performed by Amy Lance MD at [facility] MAIN OR Allergies Allergen Reactions ??? [...] fluid restriction to avoid hyponatremia/over correction --- [place] sodium level 138-145. --- Continue to try [...] something he normally likes to do at halfway, then try to avail him of that [...] something he normally likes to do at halfway, then try to avail him of that [...] behaviors (rehabilitation) and inability to climb stairs (halfway) - continue to try to make progress w/ measures described above and ongoing PT, respectively Team Pager( Coverage 27/01): #[phone] PCP: NAKIA Cifuentes [phone] Attestation: IPI Certification I certify that I [...] not included. ENDOCRINOLOGY FOLLOW UP INPATIENT NOTE [facility] Name: Miguel Angel Mason Date of [...] History: Procedure Laterality Date ??? PRO OPEN ATHLETIC EQUIPMENT MANAGER FIX ACETABULAR FX Left 09/04/2017 @OPEN TREATMENT, ACETABULAR FX (WRVU 25.41) performed by Amy Lance MD at [facility] MAIN OR Allergies Allergen Reactions ??? [...] Walsh DO Endocrinology, Diabetes and Metabolism Fellow 12/02/2017 [...] something he normally likes to do at halfway, then try to avail him of that [...] something he normally likes to do at halfway, then try to avail him of that [...] behaviors (rehabilitation) and inability to climb stairs (halfway) - continue to try to make progress w/ measures described above and ongoing PT, respectively Team Pager( Coverage 27/01): #[phone] PCP: NAKIA Cifuentes [phone] Attestation: IPI Certification I certify that I am a D-H credentialed attending provider with admitting privileges and that the patient meets or has met medical necessity to require an inpatient IPI level of care meeting a minimumof two midnights or is on the [facility] inpatient only procedure list (status C) [...] something he normally likes to do at halfway, then try to avail him of that [...] something he normally likes to do at halfway, then try to avail him of that [...] behaviors (rehabilitation) and inability to climb stairs (halfway) - continue to try to make progress w/ measures described above and ongoing PT, respectively Team Pager( Coverage 27/01): #[phone] PCP: NAKIA Cifuentes [phone] Attestation: IPI Certification I certify that I am a D-H credentialed attending provider with admitting privileges and that the patient meets or has met medical necessity to require an inpatient IPI level of care meeting a minimumof two midnights or is on the [facility] inpatient only procedure list (status C) [...] something he normally likes to do at halfway,then try to avail him of that here. [...] something he normally likes to do at halfway, then try to avail him of that -Check bladder scan prn -Bowel regimen -net bed for safety IV access: None Tubes/Drains: None DVT PPX: None as moving alot Anticipated Disposition: Discharge limited by behaviors (rehabilitation) and inability to climb stairs (halfway) - continue to try to make progress w/ measures described above and ongoing PT, respectively Team Pager( Coverage 27/01): #[phone] PCP: NAKIA Cifuentes [phone] Attestation: IPI Certification I certify that I am a D-H credentialed attending provider with admitting privileges and that the patient meets or has met medical necessity to require an inpatient IPI level of care meeting a minimumof two midnights or is on the [facility] inpatient only procedure list (status C) [...] acetabulum fracture on 09/04/17. He lives in halfway setting on 2nd level and unable to [...] far. Left messages today for: Lc Childress ([facility] Injection Moulding Machine Operator) [phone], Subha Ileana [phone] (RN of [facility] oversees the halfway), and patients sister/guardian, Bettina Mason [phone]. To further discuss discharge options. Case management will continue to follow and assist with discharge planning needs. Tricia Gerber, principal technical writer Office of Care Management [email or web address] Pager: [phone] * Debbie Keller DT - 11/28/2017 3:33 [...] Assessment: Patient seen for nutrition follow up. Process Steward able to speak with nursing on pt's [...] Name: Miguel Angel Mason Date: 11/28/17 Room: [address] [place] [address] HPI: Miguel Angel Mason is a 27 [...] History: Procedure Laterality Date ??? PRO OPEN ATHLETIC EQUIPMENT MANAGER FIX ACETABULAR FX Left 09/04/2017 @OPEN TREATMENT, ACETABULAR FX (WRVU 25.41) performed by Amy Lance MD at [facility] MAIN OR No family history on [...] MD Endocrinology, Diabetes and Metabolism Fellow Pager #[phone] 11/28/2017 I reviewed this patient with Dr [...] -change methocarbamol to PRN -Discharge limited to halfway with behaviors (rehabilitation) and inability to climb stairs (halfway) 2. 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 Continue to reassess. -Check bladder scan prn -Bowel regimen -Trying a net bed for safety - dc if worsening agitation IV access: None Tubes/Drains: None DVT PPX: None as moving alot Anticipated Disposition: Pending improved mobility and weight bearing status Team Pager( Coverage 27/01): #[phone] PCP: NAKIA Cifuentes [phone] Attestation: IPI Certification I certify that I am a D-H credentialed attending provider with admitting privileges and that the patient meets or has met medical necessity to require an inpatient IPI level of care meeting a minimumof two midnights or is on the [facility] inpatient only procedure list (status C) due to: Acetabular fx and hypernatremia REN SANCHEZ III, MD 11/28/2017 * Ren Walters OTA - 11/28/2017 8:25 AM EDT Attempted to see pt this morning, pt finishing with PT and presenting with increased negative behaviors, at this time. Will attempt again at a more appropriate time. Ren MAYA Pager: [phone] * Celine Power MD - 11/28/2017 6:03 [...] be re-tasked at discharge - please page #[phone] prior to discharge so follow up can be arranged Celine Power MD, PGY-1 Orthopaedic Surgery Pager #: [phone] No future appointments. Associated attestation - Amy [...] -change methocarbamol to PRN -Discharge limited to halfway with behaviors (rehabilitation) and inability to climb stairs (halfway) 2. 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 Continue to reassess. -Check bladder scan prn -Bowel regimen -Trying a net bed for safety - dc if worsening agitation IV access: None Tubes/Drains: None DVT PPX: None as moving alot Anticipated Disposition: Pending improved mobility and weight bearing status Team Pager( Coverage 27/01): #[phone] PCP: NAKIA Cifuentes [phone] Attestation: IPI Certification I certify that I [...] left acetabulum fracture 09/04/2017 Dr. Gitajn ??? Postoperative anemia due to acute blood [...] expressing himself -d/c methocarbamol -Discharge limited to halfway with behaviors (rehabilitation) and inability to climb stairs (halfway) 2. 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 Continue to reassess. -Check bladder scan prn -Bowel regimen -Trying a net bed for safety - dc if worsening agitation IV access: None Tubes/Drains: None DVT PPX: None as moving alot Anticipated Disposition: Pending improved mobility and weight bearing status Team Pager( Coverage 27/01): #[phone] PCP: NAKIA Cifuentes [phone] Attestation: IPI Certification I certify that I am a D-H credentialed attending provider with admitting privileges and that the patient meets or has met medical necessity to require an inpatient IPI level of care meeting a minimumof two midnights or is on the [facility] inpatient only procedure list (status C) due to: Acetabular fx and hypernatremia REN SANCHEZ III, MD 11/26/2017 * eRn Sanchez III, MD - 11/25/2017 12:54 PM [...] gm TID on 11/24) -Discharge limited to halfway with behaviors (rehabilitation) and inability to climb stairs (halfway) 2. 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 Continue to reassess. -Check bladder scan prn -Bowel regimen -Trying a net bed for safety - dc if worsening agitation IV access: None Tubes/Drains: None DVT PPX: Lovenox Anticipated Disposition: Pending improved mobility and weight bearing status Team Pager( Coverage 27/01): #[phone] PCP: NAKIA Cifuentes [phone] Attestation: IPI Certification I certify that I [...] RN - 11/25/2017 4:17 AM EDT 11/24/17-11/25/17 [id number] Patient is not wearing masimo due to [...] to suggest infection. 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 Continue to reassess. -Check bladder scan prn -Bowel regimen -Trying a net bed for safety - dc if worsening agitation IV access: None Tubes/Drains: None DVT PPX: Lovenox Anticipated Disposition: Pending improved mobility and weight bearing status Team Pager( Coverage 27/01): #[phone] PCP: NAKIA Cifuentes [phone] Attestation: IPI Certification I certify that I am a D-H credentialed attending provider with admitting privileges and that the patient meets or has met medical necessity to require an inpatient IPI level of care meeting a minimumof two midnights or is on the [facility] inpatient only procedure list (status C) due to: Acetabular fx and hypernatremia REN SANCHEZ III, MD 11/24/2017 * Shruti Lozoya RN - 11/24/2017 6:09 AM EDT 11/23/17-11/24/17 [id number] Patient not wearing masimo due to safety [...] to suggest infection. 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 Continue to reassess. -Check bladder scan prn -Bowel regimen -Trying a net bed for safety - dc if worsening agitation IV access: None Tubes/Drains: None DVT PPX: Lovenox Anticipated Disposition: Pending improved mobility and weight bearing status Team Pager( Coverage 27/01): #[phone] PCP: NAKIA Cifuentes [phone] Attestation: IPI Certification I certify that I [...] to suggest infection. 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 -Discharge limited to halfway with behaviors (rehabilitation) and inability to climb stairs (halfway) 2. 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 Continue to reassess. -Check bladder scan prn -Bowel regimen -Trying a net bed for safety - dc if worsening agitation IV access: None Tubes/Drains: None DVT PPX: Lovenox Anticipated Disposition: Pending improved mobility and weight bearing status Team Pager(MD Coverage 27/01): #[phone] PCP: NAKIA Cifuentes [phone] Attestation: IPI Certification I certify that I am a D-H credentialed attending provider with admitting privileges and that the patient meets or has met medical necessity to require an inpatient IPI level of care meeting a minimumof two midnights or is on the [facility] inpatient only procedure list (status C) due to: Acetabular fx and hypernatremia REN SANCHEZ III, MD 11/22/2017 * Crista Aguilar MD - 11/21/2017 11:26 AM EDT [facility] Medicine Attending Daily Progress Note Admit [...] to suggest infection. 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 -Discharge limited to halfway with behaviors (rehabilitation) and inability to climb stairs (halfway) 2. 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 Continue to reassess. -Check bladder scan prn -Bowel regimen -Trying a net bed today for safety - dc if worsening agitation IV access: None Tubes/Drains: None DVT PPX: Lovenox Anticipated Disposition: Pending improved mobility and weight bearing status Team Pager( Coverage 27/01): #[phone] PCP: NAKIA Cifuentes [phone] Attestation: IPI Certification I certify that I am a D-H credentialed attending provider with admitting privileges and that the patient meets or has met medical necessity to require an inpatient IPI level of care meeting a minimumof two midnights or is on the [facility] inpatient only procedure list (status C) due to: Acetabular fx and hypernatremia Crista Aguilar MD 11/21/2017 * Celine Power MD - 11/21/2017 8:11 AM EDT Orthopaedic Surgery Brief Progress Note: Patient is 11 weeks s/p ORIF left acetabular fx X-rays reviewed and patient is ok to advance to WBAT in bilateral lower extremities, assistive devices at all times. Celine Power MD #[id number] Associated attestation - Amy Lance MD - [...] to suggest infection. 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 Continue to reassess. -Check bladder scan prn -Bowel regimen -Trying a net bed today for safety - dc if worsening agitation IV access: None Tubes/Drains: None DVT PPX: Lovenox Anticipated Disposition: Pending improved mobility and weight bearing status Team Pager( Coverage 27/01): #[phone] PCP: NAKIA Cifuentes [phone] Attestation: IPI Certification I certify that I am a D-H credentialed attending provider with admitting privileges and that the patient meets or has met medical necessity to require an inpatient IPI level of care meeting a minimumof two midnights or is on the CMS inpatient only procedure list (status C) due to: Acetabular fx and hypernatremia Critsa Aguilar MD 11/20/2017 * Louis Doran PTA - 11/20/2017 1:32 PM EDT Physical Therapy Treatment Note Attempted to see pt twice today however pt was agitated and not following directions well. Will follow up with pt at a later date. Pager: [phone] L[place]IS DORAN PTA Physical Therapy Rehabilitation Department [...] at a later time. Ren MAYA Pager: [phone] * Crista Aguilar MD - 11/19/2017 10:43 [...] to suggest infection. 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 Continue to reassess. -Check bladder scan prn -Bowel regimen IV access: None Tubes/Drains: None DVT PPX: Lovenox Anticipated Disposition: Pending improved mobility Team Pager( Coverage 27/01): #[phone] PCP: NAKIA Cifuentes [phone] Attestation: IPI Certification I certify that I am a D-H credentialed attending provider with admitting privileges and that the patient meets or has met medical necessity to require an inpatient IPI level of care meeting a minimumof two midnights or is on the [facility] inpatient only procedure list (status C) [...] on my visit today. Spoke with caregiver, PHYS THER and having a calmer day. No reported [...] to suggest infection. 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 Continue to reassess. -Check bladder scan prn -Bowel regimen IV access: None Tubes/Drains: None DVT PPX: Lovenox Anticipated Disposition: Pending improved mobility Team Pager( Coverage 27/01): #[phone] PCP: NAKIA Cifuentes [phone] Attestation: IPI Certification I certify that I am a D-H credentialed attending provider with admitting privileges and that the patient meets or has met medical necessity to require an inpatient IPI level of care meeting a minimumof two midnights or is on the [facility] inpatient only procedure list (status C) [...] left acetabular fracture, s/p operative repair on 3/1. Panhypopituitarism DI - Na WNL No change [...] to suggest infection. 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 2. 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 Continue to reassess. -Check bladder scan prn -Bowel regimen IV access: None Tubes/Drains: None DVT PPX: Lovenox Anticipated Disposition: Pending improved mobility Team Pager( Coverage 27/01): #[phone] PCP: NAKIA Cifuentes [phone] Attestation: IPI Certification I certify that I am a D-H credentialed attending provider with admitting privileges and that the patient meets or has met medical necessity to require an inpatient IPI level of care meeting a minimumof two midnights or is on the [facility] inpatient only procedure list (status C) due to: Acetabular fx and hypernatremia Crista Aguilar MD 11/17/2017 Addendum: Called for patient falling from bed. Apparently was on edge of bed, lunged forward and fell on leftside. May have hit head. No focal bruising, swelling on scalp. Front Desk Team Member 5/5, strength in legs observed symmetric. Right pupil slightly smaller than left, reactive. Discussed with ortho as was due for films on 11/21 regardless. PA/lateral hip, Judet hip. I will also XR knee given hard to localize pain. Tried work number for Bettina but no answer. * Crista Aguilar MD - 11/16/2017 12:05 PM EDT [facility] Medicine Attending Daily Progress Note Admit [...] complete ROS with mental status. Spoke with sarahiter who felt he was similar to last [...] to suggest infection. 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 -Appreciate endocrinology recommendations. 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 Continue to reassess. -Check bladder scan -Bowel regimen IV access: None Tubes/Drains: None DVT PPX: Lovenox Anticipated Disposition: Pending improved mobility Team Pager( Coverage 27/01): #[phone] PCP: NAKIA Cifuentes [phone] Attestation: IPI Certification I certify that I am a D-H credentialed attending provider with admitting privileges and that the patient meets or has met medical necessity to require an inpatient IPI level of care meeting a minimumof two midnights or is on the [facility] inpatient only procedure list (status C) [...] 49 mmol/L U Chloride 75 mmol/L Specific [place], Urine Result Value Ref Range Spec [place] UA 1.025 1.002 - 1.030 Assessment: 27 [...] them as documented. Neo Coleman DO, MS Computer Game Designerchef & owner Section of Endocrinology [facility] * Crista Aguilar MD - 11/15/2017 [...] that amount. They record intake at his halfway. Physical Exam Vitals Range last 24 hrs [...] behaviors (rehabilitation) and inability to climb stairs (halfway). -Prior attending discussed with orthopedics due to [...] Pending improved mobility Team Pager( Coverage 27/01): #[phone] PCP: NAKIA Cifuentes [phone] Attestation: IPI Certification I certify that I am a D-H credentialed attending provider with admitting privileges and that the patient meets or has met medical necessity to require an inpatient IPI level of care meeting a minimumof two midnights or is on the [facility] inpatient only procedure list (status C) due to: Acetabular fx and hypernatremia Crista Aguilar MD 11/15/2017 * Yossi Morin DO - 11/14/2017 2:52 PM EDT [facility] MEDICINE ATTENDING DAILY PROGRESS NOTE Patient: Miguel Angel Mason, 1990, [id number] Physician: Yossi Morin DO, Pager: [phone], [facility] Medicine Service Admit Date: 09/02/2017 Date [...] behaviors (rehabilitation) and inability to climb stairs (halfway). Discussed with orthopedics due to increasing pain [...] to look for alternative placement in a halfway. IPI Certification I certify that I am a D-H credentialed attending provider with admitting privileges and that the patient meets or has met medical necessity to require an inpatient IPI level of care meeting a minimumof two midnights or is on the [facility] inpatient only procedure list (status C) due to: the patient has met Inpatient IPI criteria and is awaiting rehabilitation or senior living facility placement withactive referrals in process MEDICATIONS: [...] 1 drop TID PRN Yossi Morin DO 8015 Hospitalist 11/14/2017 2:52 PM * Celine Power [...] reasonable to consider XR. Celine Power MD #[id number] * Yossi Morin DO - 11/13/2017 1:36 PM EDT [facility] MEDICINE ATTENDING DAILY PROGRESS NOTE Patient: Miguel Angel Mason, 1990, [id number] Physician: Yossi Morin DO, Pager: [phone], [facility] Medicine Service Admit Date: 09/02/2017 Date [...] behaviors (rehabilitation) and inability to climb stairs (halfway). 2. Panhypopituitarism: Due to prior pituitary tumor [...] to look for alternative placement in a halfway. IPI Certification I certify that I am a D-H credentialed attending provider with admitting privileges and that the patient meets or has met medical necessity to require an inpatient IPI level of care meeting a minimumof two midnights or is on the [facility] inpatient only procedure list (status C) due to: the patient has met Inpatient IPI criteria and is awaiting rehabilitation or senior living facility placement withactive referrals in process MEDICATIONS: [...] Assessment: Patient seen for nutrition follow up. Process Steward able to speak with nursing on pt's [...] Intake/Output Summary (Last 24 hours) at 11/13/17 09 Last data filed at 11/12/17 1500 Gross [...] be re-tasked at discharge - please page #[phone] prior to discharge so follow up can be arranged. If remains inpatient, will plan on repeat imaging ~11/18 to assess interval healing (will be almost 11 weeks form operation) Celine Power MD, PGY-1 Orthopaedic Surgery Pager #: [phone] Future Appointments Date Time Provider Department Center 11/21/2017 10:[address] [facility] DX ROOM 2 Xray [facility] 11/21/2017 11:40 AM Amy Lance MD [facility]A [facility] Associated attestation - Amy Lance MD - 11/15/2017 7:05 AM EDT Patient seen and examined. Agree with resident note. Plan for 10 week follow-up this week. Mandy Lance MD Department of Orthopaedics 11/15/17 * Yossi Morin DO - 11/12/2017 1:10 PM EDT [facility] MEDICINE ATTENDING DAILY PROGRESS NOTE Patient: Migeul Angel Mason, 1990, [id number] Physician: Yossi Morin DO, Pager: [phone], Hospital Medicine Service Admit Date: 09/02/2017 Date [...] behaviors (rehabilitation) and inability to climb stairs (halfway). 2. Panhypopituitarism: Due to prior pituitary tumor [...] to look for alternative placement in a halfway. IPI Certification I certify that I am a D-H credentialed attending provider with admitting privileges and that the patient meets or has met medical necessity to require an inpatient IPI level of care meeting a minimumof two midnights or is on the [facility] inpatient only procedure list (status C) due to: the patient has met Inpatient IPI criteria and is awaiting rehabilitation or senior living facility placement withactive referrals in process MEDICATIONS: [...] TID PRN Yossi Morin DO 2700 Hospitalist 11/12/2017 1:10 PM * Noel Martinez OTA - 11/12/2017 11:44 AM EDT Occupational Therapy note: Pt not appropriate for skilled OT at this time due to agitation. Will follow up when patient is more appropriate. Noel EPSTEIN/Ramone Pager:[phone] Occupational Therapy * Tricia Gerber RN - 11/11/2017 4:21 PM EDT Case reviewed in eDH and with interdisciplinary team. Per MD patient is medically ready for discharge. Case management has been working on discharge plan. Referrals have been submitted to SNF's throughout [place]. Left msg for both Lc Childress [phone] and Subha Tejeda [phone]. To further discuss discharge options. Tricia Gerber RN Case Paste Up Artist of Care Management [email or web address] Pager: [phone] * Yossi Morin DO - 11/11/2017 3:18 PM EDT [facility] MEDIC[facility] ATTENDING DAILY PROGRESS NOTE Patient: Miguel Angel Mason, 1990, [id number] Physician: Yosis Morin DO, Pager: [phone], [facility] Medicine Service Admit Date: 09/02/2017 Date [...] behaviors (rehabilitation) and inability to climb stairs (halfway). 2. Panhypopituitarism: Due to prior pituitary tumor [...] to look for alternative placement in a halfway. IPI Certification I certify that I am a D-H credentialed attending provider with admitting privileges and that the patient meets or has met medical necessity to require an inpatient IPI level of care meeting a minimumof two midnights or is on the [facility] inpatient only procedure list (status C) due to: the patient has met Inpatient IPI criteria and is awaiting rehabilitation or senior living facility placement withactive referrals in process MEDICATIONS: [...] 1 drop TID PRN Yossi Morin DO 1369 Hospitalist 11/11/2017 3:18 PM * Yossi Morin DO - 11/10/2017 2:21 PM EDT HOSPITAL MEDICINE ATTENDING DAILY PROGRESS NOTE Patient: Miguel Angel Mason, 1990, [id number] Physician: Yossi Morin DO, Pager: [phone], [facility] Medicine Service Admit Date: 09/02/2017 Date [...] behaviors (rehabilitation) and inability to climb stairs (halfway). 2. Panhypopituitarism: Due to prior pituitary tumor [...] to look for alternative placement in a halfway. IPI Certification I certify that I am a D-H credentialed attending provider with admitting privileges and that the patient meets or has met medical necessity to require an inpatient IPI level of care meeting a minimumof two midnights or is on the [facility] inpatient only procedure list (status C) due to: the patient has met Inpatient IPI criteria and is awaiting rehabilitation or senior living facility placement withactive referrals in process MEDICATIONS: [...] 2700 Hospitalist 11/10/2017 2:21 PM * Isabell Laureano, RN - 11/09/2017 8:11 PM EDT Pt alert, disoriented, transferred to 1 this early evening. Cooperative with medication regimen. Tachycardic during the shift, agitated, redirectable with play. Had good appetite for dinner. Sitterat bedside. Continue to monitor, safety maintained. * Jeannette Don RN - 11/09/2017 4:06 PM EDT Pt being transferred to [facility]. Report given to RN. Jeannette Don RN * Yossi Morin DO - 11/09/2017 12:18 PM EDT [facility] MEDICINE ATTENDING DAILY PROGRESS NOTE Patient: Miguel Angel Mason, 1990, [id number] Physician: Yossi Morin DO, Pager: [phone], [facility] Medicine Service Admit Date: 09/02/2017 Date [...] minimumof two midnights or is on the [facility] inpatient only procedure list (status C) due to: the patient has met Inpatient IPI criteria and is awaiting rehabilitation or senior living facility placement withactive referrals in process MEDICATIONS: [...] TID PRN Yossi Morin DO 2700 Hospitalist 11/09/2017 12:20 PM * Yossi Morin DO - 11/08/2017 2:47 PM EDT HOSPITAL MEDICINE ATTENDING DAILY PROGRESS NOTE Patient: Miguel Angel Mason, 1990, [id number] Physician: Yossi Morin DO, Pager: [phone], [facility] Medicine Service Admit Date: 09/02/2017 Date [...] minimumof two midnights or is on the [facility] inpatient only procedure list (status C) due to: the patient has met Inpatient IPI criteria and is awaiting rehabilitation or senior living facility placement withactive referrals in process MEDICATIONS: [...] 1 drop TID PRN Yossi Morin DO 1170 Hospitalist 11/08/2017 2:47 PM * Isabel Donis [...] Status - Unable to obtain. Non verbal. ONITVEROS. Studies reviewed in eDH. Remarkable for the [...] IPI criteria and is awaiting rehabilitation or senior living facility placement withactive referrals in process Team Pager( Coverage 27/01): #[phone] PCP: NAKIA Cifuentes [phone] Isabel Donis MD 11/07/2017 * Isabel Donis [...] minimumof two midnights or is on the [facility] inpatient only procedure list (status C) due to: the patient has met Inpatient IPI criteria and is awaiting rehabilitation or senior living facility placement withactive referrals in process Team Pager( Coverage 27/01): #[phone] PCP: NAKIA Cifuentes [phone] Isabel Donis MD 11/06/2017 * Isabel Donis [...] IPI criteria and is awaiting rehabilitation or senior living facility placement withactive referrals in process Team Pager( Coverage 27/01): #[phone] PCP: NAKIA Cifuentes [phone] Isabel Donis MD 11/05/2017 * Isabel Donis [...] IPI criteria and is awaiting rehabilitation or senior living facility placement withactive referrals in process Team Pager(MD Coverage 27/01): #[phone] PCP: NAKIA Cifuentes [phone] Isabel Donis MD 11/04/2017 * Celine Power [...] be re-tasked at discharge - please page #[phone] prior to discharge so follow up can be arranged. If remains inpatient, will plan on repeat imaging about 11/18 to assess interval healing Celine Power MD, PGY-1 Orthopaedic Surgery Pager #: [phone] Future Appointments Date Time Provider Department Center 11/21/2017 10:[address] [facility] DX ROOM 2 Xray Le[facility] Rad [...] minimumof two midnights or is on the [facility] inpatient only procedure list (status C) due to: the patient has met Inpatient IPI criteria and is awaiting rehabilitation or senior living facility placement withactive referrals in process Team Pager( Coverage 27/01): #[phone] PCP: NAKIA Cifuentes [phone] Isabel Donis MD 11/03/2017 * Isabel Donis [...] IPI criteria and is awaiting rehabilitation or senior living facility placement withactive referrals in process Team Pager( Coverage 27/01): #[phone] PCP: NAKIA Cifuentes [phone] Isabel Donis MD 11/02/2017 * Isabel Donis [...] IPI criteria and is awaiting rehabilitation or senior living facility placement withactive referrals in process Team Pager( Coverage 27/01): #[phone] PCP: NAKIA Cifuentes [phone] Isabel Donis MD 11/01/2017 * Samson Alvarez - 10/31/2017 2:55 PM EDT [employer] Encounter Note Patient Name: Miguel Angel Mason : [id number] MR#: [id number] Admit Date: 09/02/2017 9:23 PM Hospital Day 59 days Narrative: Visited to introduce and assess acceptance of [employer] services. Assessment: Patient coping positively with stresses of illness/hospitalization at this time. Mr. Huggins was there and says that Miguel Angel is slowly feeling better. 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 Intervention and Outcome:provided listening presence to care provider. [facility] services accepted.Conversation to build trusting relationship.Provided pastoral presence. Follow-up: yes Time in Direct Care:15 Mins Samson Alvarez 10/31/2017 * Ren Walters OTA - 10/31/2017 11:30 AM EDT Attempted to see pt this morning, pt currently working with PT. Will attempt again at a later time. Ren MAYA Pager: [phone] * Dillon Koch MD - 10/31/2017 7:59 [...] minimumof two midnights or is on the [facility] inpatient only procedure list (status C) due to: the patient has met Inpatient IPI criteria and is awaiting rehabilitation or senior living facility placement withactive referrals in process Team Pager( Coverage 27/01): #[phone] PCP: NAKIA Cifuentes [phone] DILLON KOCH MD 10/31/2017 * Debbie Keller, [...] Assessment: Patient seen for nutrition follow up. Process Steward able to speak with pt's caregiver (Soila) on pt's nutritional care. Soila reported a good appetite without difficulty chewing or swallowing. He is tolerating current diet without nausea or vomiting. Soila stated pt consumed oj, chocolate milk, 1/2 fruit cup (still working on), home fries, 1/4 occitan toast, sausage, and white toast. Soila stated, he was really tired this morning. He didn't sleep well last night. Nursing notes [id number]% PO intake on 10/29, 10/28, + 10/27. [...] at a more appropriate time. Ren MAYA Pager:[phone] * Dillon Koch MD - 10/30/2017 7:58 [...] Intake/Output Summary (Last 24 hours) at 10/30/17 1308 Last data filed at 10/30/17 0647 Gross [...] minimumof two midnights or is on the [facility] inpatient only procedure list (status C) due to: the patient has met Inpatient IPI criteria and is awaiting rehabilitation or senior living facility placement withactive referrals in process Team Pager(MD Coverage 27/01): #[phone] PCP: NAKIA Cifuentes [phone] DILLON KOCH MD 10/30/2017 * Dillon Koch [...] IPI criteria and is awaiting rehabilitation or senior living facility placement withactive referrals in process Team Pager(MD Coverage 27/01): #[phone] PCP: NAKIA Cifuentes [phone] DILLON KOCH MD 10/29/2017 * Dillon Koch MD - 10/28/2017 7:52 AM EDT [facility] Medicine Attending Daily Progress Note Admit [...] IPI criteria and is awaiting rehabilitation or senior living facility placement withactive referrals in process Team Pager(MD Coverage 27/01): #[phone] PCP: NAKIA Cifuentes [phone] DILLON KOCH MD 10/28/2017 * Skyla Aranda [...] be re-tasked at discharge - please page #[phone] prior to discharge so follow up can be arranged. Skyla Aranda MD, PGY-1 Orthopaedic Surgery Pager #: [phone] Future Appointments Date Time Provider Department Center 11/21/2017 10:[address] [facility] DX ROOM 2 Xray Leb Rad [...] minimumof two midnights or is on the [facility] inpatient only procedure list (status C) due to: the patient has met Inpatient IPI criteria and is awaiting rehabilitation or senior living facility placement withactive referrals in process Team Pager( Coverage 27/01): #[phone] PCP: NAKIA Cifuentes [phone] DILLON KOCH MD 10/27/2017 * Dillon Koch [...] IPI criteria and is awaiting rehabilitation or senior living facility placement withactive referrals in process Team Pager( Coverage 27/01): #[phone] PCP: NAKIA Cifuentes [phone] DILLON KOCH MD 10/26/2017 * Jevon Menendez, RN - 10/25/2017 4:12 PM EDT 3W Clinical Nurse Oyster Culler spoke with Lali Walker, mail sorting supervisor, this afternoon. Lali expressed concern over not having a caregiver with Miguel Angel as originally intended today and the homes ability to continue to send caregivers to the hospital if asked to leave. Explained to Lali that [place] agitation and redirect-ability were significantly different than recent prior days. After discussion with shipping supervisor, it was agreed that today, and PHYS THER sitter from [facility] would continue to sit with Miguel Angelbut we would be happy to have caregivers back anytime. Jevon Menendez, RN * Rosie Marinelli RN - 10/25/2017 1:50 PM EDT Patient's rn wound care asked to leave by this RN r/t patient's agitation and interactions witnessed by this RN and supplemental staff. Informed caregiver that her language and interactions with Miguel Angel were agitating him more than ever noticed before with other caregivers. Caregiver Vanessa states, WellI'll call my shipping supervisor. Continues to remain at bedside for an additional 15 minutes before leaving. Patient immediately settles with an PHYS THER at bedside engaging him in activities. MD [...] be helpful, safe, and supportive. [facility] community relations representative briefed. * Dillon Koch MD - 10/25/2017 [...] IPI criteria and is awaiting rehabilitation or senior living facility placement withactive referrals in process Team Pager(MD Coverage 27/01): #[phone] PCP: NAKIA Cifuentes [phone] DILLON KOCH MD 10/25/2017 * Rosie Marinelli RN - 10/24/2017 4:35 PM EDT Patient stable this shift. Frequently mobilizing with caregiver, RN and ZULMA staff. Minimal crying out this shift. Pain managed by PO dilaudid and PO robaxin. LLE non-weight bearing status. New bowel medications started. Confirmed with medicine MD Q72hr CBC r/t DDAVP order saying to [...] IPI criteria and is awaiting rehabilitation or senior living facility placement withactive referrals in process Team Pager( Coverage 27/01): #[phone] PCP: NAKIA Cifuentes [phone] Isabel Donis MD 10/24/2017 * Isabel Donis [...] minimumof two midnights or is on the [facility] inpatient only procedure list (status C) due to: the patient has met Inpatient IPI criteria and is awaiting rehabilitation or senior living facility placement withactive referrals in process Team Pager( Coverage 27/01): #[phone] PCP: NAKIA Cifuentes [phone] Isabel Donis MD 10/23/2017 * Debbie Keller DT - 10/23/2017 2:42 PM EDT Nutrition [...] Patient pt seen for nutrition follow up. Process Steward able to speak with nursing on pt's [...] daily. Will continue to send. Please call [phone] should request be made to modify snack. [...] Assumed care at 1400. * Skyla Rutherford, RN - 10/23/2017 1:12 PM EDT 1:1 [...] asked that I send a referral to [facility]. I let her know that he had [place] Medicaid and she is familiar with people who work there and [place] Medicaid. Will ask resource management planner to refer to [facility]. * Tez Tate MSW - 10/23/2017 [...] minimumof two midnights or is on the [facility] inpatient only procedure list (status C) due to: the patient has met Inpatient IPI criteria and is awaiting rehabilitation or senior living facility placement withactive referrals in process Team Pager( Coverage 27/01): #[phone] PCP: NAKIA Cifuentes [phone] Isabel Donis MD 10/22/2017 * Marta Alfred RN - 10/22/2017 11:53 AM EDT Chart reviewed, care reviewed with primary team. Mr Mason continues ready for discharge to SNF/Swing level of care. Over 30 referrals have been placed (statewide referrals) and all declined. Barriers include behaviors and patient with [place] Medicaid only for insurance. Mr Mason was admitted on 09/02 with fractured acetabulum requiring ORIF (09/04). He will be non weight bearing for 4 more weeks. Prior to admission he was living in a halfway. He was independent with ambulation and lived on the second floor without elevator access. To return there he must be able to manage stairs. He has a guardian who requests update calls on Friday, Friday and Friday. FAIRING WORKER following as well and states a call was made yesterday. Call placed to [facility] Injection Moulding Machine Operator Lc Hull (?sp) [phone] updated the contact information on his face sheet with his information. I left a message to update him on status and seek additional support/suggestions. I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 neurologically. No past medical history on file. Past Surgical History: Procedure Laterality Date ??? PRO OPEN ATHLETIC EQUIPMENT MANAGER FIX ACETABULAR FX Left 09/04/2017 @OPEN TREATMENT, ACETABULAR FX (WRVU 25.41) performed by Amy Lance MD at [facility] MAIN OR No family history on [...] MD Endocrinology, Diabetes and Metabolism Fellow Pager #[phone] 09/29/2017 Associated attestation - Genevieve Page MD - 09/29/2017 5:38 PM EDT I discussed this patient with Dr. Niles Tillman. I reviewed the santos portions of the history and physical exam, and reviewed pertinent lab data. I was involved in all medical decision making and agree with this plan. GENEVIEVE PAGE MD Computer Game Designerchef & owner Section of Endocrinology [facility] * Tez Tate MSW [...] Samson Alvarez - 09/28/2017 3:52 PM EDT Kecia Encounter Note Patient Name: Miguel Angel Mason : [id number] MR#: [id number] Admit Date: 09/02/2017 9:23 PM Hospital Day [...] to 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 Diet Regular diet Discharge planning No rehab acceptances as of yet. His current halfway is unable to find first floor room for him. CM working with [facility] for further options. Lines/Access None Morse catheter None DVT Prophylaxis Enoxaparin Code status FULL Team Pager [phone] PCP NAKIA Cifuentes Attestation IPI Certification I certify that I am a D-H credentialed attending provider with admitting privileges and that the patient meets or has met medical necessity to require an inpatient IPI level of care meeting a minimumof two midnights or is on the [facility] inpatient only procedure list (status C) due to: the patient has met Inpatient IPI criteria and is awaiting rehabilitation or senior living facility placement withactive referrals in process REBA [...] them as documented. Neo Coleman DO, MS Computer Game Designerchef & owner Section of Endocrinology [facility] * Reba Linton MD - 09/27/2017 [...] 4.0 4.0 CL 106 98 100 CO2 26 BUN 17 16 13 CREATININE 1.00 [...] to 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 Diet Regular diet Discharge planning Medically stable for discharge. No rehab acceptances as of yet. His current halfway is unable to find first floor room for him. CM working with [facility] for further options. Lines/Access None Morse catheter None DVT Prophylaxis Enoxaparin Code status FULL Team Pager [phone] PCP NAKIA Cifuentes Attestation IPI Certification I certify that I am a D-H credentialed attending provider with admitting privileges and that the patient meets or has met medical necessity to require an inpatient IPI level of care meeting a minimumof two midnights or is on the [facility] inpatient only procedure list (status C) due to: the patient has met Inpatient IPI criteria and is awaiting rehabilitation or senior living facility placement withactive referrals in process REBA [...] to 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 IV access: none Tubes/Drains: none DVT PPX: Lovenox 40mg QHS Anticipated Disposition: Medically stable for discharge. No rehab acceptances as of yet. His current halfway is unable to find first floor room for him. working with [facility] for further options. Goals of Care: Full code Team Pager(MD Coverage 27/01): #[phone] PCP: NAKIA Cifuentes [phone] Kya Enriquez MD 09/26/2017 * Gabe Marinelli [...] to 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 IV access: none Tubes/Drains: none DVT PPX: Lovenox 40mg QHS Anticipated Disposition: Medically stable for discharge. No rehab acceptances as of yet. His current halfway is unable to find first floor room for him. CM working with [facility] for further options. Goals of Care: Full code Team Pager(MD Coverage 27/01): #[phone] PCP: NAKIA Cifuentes [phone] Kya Enriquez MD 09/25/2017 * Debbie Keller [...] noted. Assessment: Patient seen for follow up. Process Steward able to speak with nursing on pt's [...] 09/24/2017 11:13 AM EDT Office of Care Management(OCM)/Injection Moulding Machine Operator(CM)/Discharge Planning Service: Medicine Pager # [phone] LUCAS BoyceRN,BSN,MA,[facility] pgr [phone] ?? Called Guardian /sister Bettina to update w d/c planning and pt status. Updated that: Is in room w cande lift so will be making transfers to chair, w/c etc. Staff working to find safe plan to help him w stand pivot that is safe for pt(requires 2 staff) andfor the staff as he gets combative - grabs hard, pinches etc. [facility] Director and S[facility] Disabilities looking for first floor room. ? Agreed RNCM will call Mon/Fri/Fri w olimpia. Provided pagr [phone] as contact pgr for now and she [...] dtermined by XRAY ?? 09/23: Met w [facility] director Lc Ny while he was visiting with pt. Barriers reviewed and remain unchanged. I notified him I had also had contact w Noel Estrella [place] Dept of Aging /[employer] Developmental Services Specialist [...] to 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 IV access: none Tubes/Drains: none DVT PPX: Lovenox 40mg QHS Anticipated Disposition: Medically stable for discharge. No rehab acceptances as of yet. His current halfway is unable to find first floor room for him. working with [facility] for further options. Goals of Care: Full code Team Pager(MD Coverage 27/01): #[phone] PCP: NAKIA Cifuentes [phone] Kya Enriquez MD 09/24/2017 * Gabe Marinelli [...] to 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 IV access: none Tubes/Drains: none DVT PPX: Lovenox 40mg QHS Anticipated Disposition: Medically stable for discharge. No rehab acceptances as of yet. His current halfway is unable to find first floor room for him. CM working with [facility] for further options. Goals of Care: Full code Team Pager( Coverage 27/01): #[phone] PCP: NAKIA Cifuentes [phone] Kya Enriquez MD 09/23/2017 Spoke with ortho [...] when asked if he feels well - [place] removed by orthopedics today Review of Systems: [...] to 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 IV access: none Tubes/Drains: none DVT PPX: Lovenox 40mg QHS Anticipated Disposition: Medically stable for discharge. No rehab acceptances as of yet. His current halfway is unable to find first floor room for him. LUCAS working with [facility] for further options. Goals of Care: Full code Team Pager(MD Coverage 27/01): #[phone] PCP: NAKIA Cifuentes [phone] Kya Enriquez MD 09/22/2017 * Kya Enriquez [...] to 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 IV access: none Tubes/Drains: none DVT PPX: Lovenox 40mg QHS Anticipated Disposition: Medically stable for discharge. No rehab acceptances as of yet. His current halfway is unable to find first floor room for him. CM working with [facility] for further options. Goals of Care: Full code Team Pager(MD Coverage 27/01): #[phone] PCP: NAKIA Cifuentes [phone] Kya Enriquez MD 09/21/2017 * Kya Enriquez [...] ECGs available Confirmed by MD Scottie, Sally ([id number]) on 09/05/2017 3:49:31 PM QTCCALC 429 IMAGING: [...] to 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 IV access: none Tubes/Drains: none DVT PPX: Lovenox 40mg QHS Anticipated Disposition: Medically stable for discharge. No rehab acceptances as of yet. His current halfway is unable to find first floor room for him. LUCAS working with [facility] for further options. Goals of Care: Full code Team Pager( Coverage 27/01): #[phone] PCP: NAKIA Cifuentes [phone] Kya Enriquez MD 09/20/2017 * Minerva Boyce, RN - 09/19/2017 4:53 PM EDT Office of Care Management(OCM)/Injection Moulding Machine Operator(CM)/Discharge Planning Service: Medicine Pager # [phone] CM Minerva Boyce,RN,BSN,MA,[facility] pgr [phone] Housing Contacts for pt: ?? Noel Estrella [phone]: [facility] Dept of Aging and [place], Developmental Services Specialist ( Name provided by Office of the Public Guardian Alicia Joyce: [phone]) too late to reach Noel today. May be able to access Medicaid waiver funds, matched funding to assist. Also does the PASR for [facility]. Does is NOT under Choices for Care/Fdc Care Medicaid program - he is under Developmental Services instead. ?? Lc Martinez-: Director [facility]): single agency contracted by Sd Dept Aging/Indep to provide services/housing for Miguel Angel ?? Subha Tejeda [phone] is the RN of [facility] who oversees the halfway Miguel Angel is in. She is notthere 27/01 but is similar to home health RN. Spoke w Lc and Subha together this afternoon: ?? They have not had success in past in getting SNF rehab for pts with his level of disabiities ?? They are currently providing caregivers from pt's halfway in order to provide patient with sense of comfort and stability from those he knows, to interpret his needs to the staff. It is appropriate for them to touch/talk w pt to assist in calming and if [facility] ok with them wheeling him about in w/c it is ok with them. ?? Subha had great success in getting clinical and ability info from staff initially but of late theresponses have been that the person doesn't know. ?? [facility] has 5 homes all are full and pt's room is on 2nd floor 18 step walk up and there are stairs to enter the home. ?? The home that Miguel Angel is in is one [facility] rents so they can't make changes such [...] plan status And to contact Noel of [facility] Developmental Services. Clinical Leader working w staff [...] ECGs available Confirmed by MD Scottie, Sally ([id number]) on 09/05/2017 3:49:31 PM QTCCALC 429 IMAGING: [...] to 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 IV access: none Tubes/Drains: none DVT PPX: Lovenox 40mg QHS Anticipated Disposition: Medically stable for discharge. No rehab acceptances as of yet. His current halfway is unable to find first floor room for him. CM working with [facility] for further options. Goals of Care: Full code Team Pager( Coverage 27/01): #[phone] PCP: NAKIA Cifuentes [phone] Delgado Jeffrey MD 09/19/2017 Staff Addendum: ?? [...] 09/18/2017 5:30 PM EDT Office of Care Management(OCM)/Injection Moulding Machine Operator(CM)/Discharge Planning Service: CM Minerva Boyce,RN,BSN,MA,ACM pgr [phone] 09/17: Called Guardian and spoke with her about d/c planning and that facilities had declined her brother. She agrees he is getting bored, frustrated in hospital environment and would be bestserved to be in his own halfway getting home PT/OT. Clinical update given and she asks that teamcall her with clinical decisions and updates and can reach her at her work phone if is after 2P. Today- left message with Subha Razo who is the RN overseeing halfway. RNCM Solitario Kelsey has spoken with her before [...] hours. Recent Labs 09/03/17 1756 09/03/17 1847 09/14/172050 BLOODCX No growth at 5 days. No growth at 5 days. No growth at 3 days. No growth at 3 days. ECG: Recent Labs 09/04/170 DIAGLINE Sinus tachycardia Nonspecific ST abnormality Abnormal ECG No previous ECGs available Confirmed by MD Scottie, Sally ([id number]) on 09/05/2017 3:49:31 PM QTCCALC 429 IMAGING: [...] to 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 IV access: none Tubes/Drains: none DVT PPX: Lovenox 40mg QHS Anticipated Disposition: Medically stable for discharge, pending placement Goals of Care: Full code Team Pager(MD Coverage 27/01): #[phone] PCP: NAKIA Cifuentes [phone] Delgado Jeffrey MD 09/18/2017 Staff Addendum: I [...] minimumof two midnights or is on the [facility] inpatient only procedure list (status C) [...] BUN -- -- -- -- 16 -- -- 18 CREATININE -- -- -- -- [...] ECGs available Confirmed by MD Scottie, Sally ([id number]) on 09/05/2017 3:49:31 PM QTCCALC 429 IMAGING: [...] to 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 IV access: none Tubes/Drains: none DVT PPX: Lovenox 40mg QHS Anticipated Disposition: Medically stable for discharge, pending placement Goals of Care: Full code Team Pager( Coverage 27/01): #[phone] PCP: NAKIA Cifuentes [phone] REBA LINTON MD 09/17/2017 * Debbie Keller [...] Assessment: Patient seen for nutrition follow up. Process Steward able to speak with visitor on pt's [...] right leg only DVT prophylaxis: lovenox Closure: [place] to be removed ~09/19 Dressings: may leave open to air now Future Appointments Date Time Provider Department Center 09/19/2017 2:[address] [facility] DX ROOM 1 Xray Leb Rad [...] re-attempt tomorrow when appropriate. Please page this financial underwriter if you have any questions, thank you. Agnieszka Mendiola, PT Pager #[phone] Physical Therapy Inpatient Rehabilitation * Ren Walters OTA - 09/16/2017 1:04 PM EDT Attempted to see pt this morning, pt working with other staff and notably agitated. Will attempt again at a more appropriate time. Ren MAYA Pager:[phone] * Reba Linton MD - 09/16/2017 8:34 [...] ECGs available Confirmed by MD Scottie, Sally ([id number]) on 09/05/2017 3:49:31 PM QTCCALC 429 IMAGING: [...] to 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 IV access: none Tubes/Drains: none DVT PPX: Lovenox 40mg QHS Anticipated Disposition: pending workup of fever Goals of Care: Full code Team Pager(MD Coverage 27/01): #[phone] PCP: NAKIA Cifuentes [phone] Delgado Jeffrey MD PGY-1, Internal Medicine 09/16/2017 [...] incisions intact. Awaiting potential rehab or specialty group home per care management notes. Hb is 6.8 [...] Time Provider Department Center 09/19/2017 2:[address] [facility] DX ROOM 1 Xray [facility] Rad Clin 09/19/2017 3:10 PM Amy Lance MD [facility] Associated attestation - Amy Lance MD - 09/16/2017 6:12 AM EDT Agree with resident note. Mandy Lance MD Department of Orthopaedics 09/16/17 * Chavez Kelsey RN - 09/15/2017 10:03 AM EDT OFFICE OF CARE MANAGEMENT CM call to Subha Garcia RN at halfway. We discussed declines by facilities- awaiting [facility] response. We discussed if there are any other home that may be able to accommodate Miguel Angel physical needs at this time. We discussed supportive services such as VNA. Subha will discuss with Home's shipping supervisor in considering if miguel angel could [...] ECGs available Confirmed by MD Scottie, Sally ([id number]) on 09/05/2017 3:49:31 PM QTCCALC 429 VASCULAR: [...] to 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 IV access: none Tubes/Drains: none DVT PPX: Lovenox 40mg QHS Anticipated Disposition: pending workup of fever Goals of Care: Full code Team Pager( Coverage 27/01): #[phone] PCP: NAKIA Cifuentes [phone] Delgado Jeffrey MD PGY-1, Internal Medicine 09/15/2017 [...] not included. ENDOCRINOLOGY FOLLOW UP INPATIENT NOTE [facility] Name: Miguel Angel Mason Date of [...] History: Procedure Laterality Date ??? PRO OPEN ATHLETIC EQUIPMENT MANAGER FIX ACETABULAR FX Left 09/04/2017 @OPEN TREATMENT, ACETABULAR FX (WRVU 25.41) performed by Amy Lance MD at [facility] MAIN OR Allergies Allergen Reactions ??? [...] to autonomic instability related to hx of SHROUDMAN insults described above Diet Regular diet Discharge planning Anticipate patient will be medically stable for discharge to rehab within next 24-48 hours Lines/Access None Morse catheter None DVT Prophylaxis Enoxaparin Code status FULL Team Pager [phone] PCP NAKIA Cifuentes Attestation IPI Certification I certify that I am a D-H credentialed attending provider with admitting privileges and that the patient meets or has met medical necessity to require an inpatient IPI level of care meeting a minimumof two midnights or is on the [facility] inpatient only procedure list (status C) [...] touching or repositioning that leg. (medicine pager [phone]) notified and additional 2 mg of po [...] Sodium has now stabilized. Will plan to slejJ0H serum and urine osms and continue Q6H [...] to autonomic instability related to hx of SHROUDMAN insults described above Diet Regular diet Discharge planning Anticipate patient will be medically stable for discharge to rehab within next 24-48 hours Lines/Access None Morse catheter None DVT Prophylaxis Enoxaparin Code status FULL Team Pager [phone] PCP NAKIA Cifuentes Attestation IPI Certification I certify that I am a D-H credentialed attending provider with admitting privileges and that the patient meets or has met medical necessity to require an inpatient IPI level of care meeting a minimumof two midnights or is on the [facility] inpatient only procedure list (status C) [...] to autonomic instability related to hx of SHROUDMAN insults described above. ? IV access: piv Tubes/Drains: Morse DVT PPX: lovenox Anticipated Disposition: Awaiting rehab once Na stable ?? Goals of Care: Full Code Team Pager( Coverage 27/01): #[phone] PCP: NAKIA Cifuentes [phone] REN SANCHEZ III, MD * Comi, Christopher Jerez MD - 09/12/2017 8:17 AM EST Images from the original note were not included. ENDOCRINOLOGY FOLLOW UP INPATIENT NOTE [facility] Name: Miguel Angel Mason Date of [...] History: Procedure Laterality Date ??? PRO OPEN ATHLETIC EQUIPMENT MANAGER FIX ACETABULAR FX Left 09/04/2017 @OPEN TREATMENT, ACETABULAR FX (WRVU 25.41) performed by Amy Lance MD at [facility] MAIN OR Allergies Allergen Reactions ??? [...] in chair Responding to some questions, rn wound care at bedside helps interaction CVS/Lungs- regular/clear No [...] Time Provider Department Center 09/19/2017 2:[address] [facility] DX ROOM 1 Xray Leb Rad [...] to replace restraints to all 4 limbs. O * Masood High RN - 09/11/2017 8:26 [...] this time. Caregiver to remain at bedside. O * Chavez Kelsey RN - 09/11/2017 1:12 PM EST OFFICE OF CARE MANAGEMENT Met with pt and his rn wound care this am., Per review with medical team, pt NOT medically ready today due to electrolyte imbalance. Will ask RS to update facilities in referral, potentially medically cleared within 24 hrs * Christopher Hess MD - 09/11/2017 8:35 AM EST Images from the original note were not included. ENDOCRINOLOGY FOLLOW UP INPATIENT NOTE [facility] Name: Miguel Angel Mason Date of [...] History: Procedure Laterality Date ??? PRO OPEN ATHLETIC EQUIPMENT MANAGER FIX ACETABULAR FX Left 09/04/2017 @OPEN TREATMENT, ACETABULAR FX (WRVU 25.41) performed by Amy Lance MD at [facility] MAIN OR Allergies Allergen Reactions ??? 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 ? IV access: piv Tubes/Drains: Morse DVT PPX: lovenox Anticipated Disposition: Awaiting reahb ?? Goals of Care: Full Code Team Pager(MD Coverage 27/01): #[phone] PCP: NAKIA Cifuentes [phone] Delgado Jeffrey MD Attending Attestation Please see [...] of two midnights or is on the [facility] inpatient only procedure list (status C) [...] BMI. Assessment: Patient seen regarding hospital LOS. VisitorAdriane, at bedside at time of arrival and pt asleep. Process Steward able to speak with visitor on pt's [...] informed of supplemental shakes available if needed. Process Steward showed Adriane where unit kitchen is for [...] to autonomic instability related to hx of SHROUDMAN insults described above. ? IV access: piv Tubes/Drains: Morse DVT PPX: lovenox Anticipated Disposition: Awaiting reahb ?? Goals of Care: Full Code Team Pager( Coverage 27/01): #[phone] PCP: Lc Venegas, NAKIA [phone] REN SANCHEZ III, MD * Shelley Tong RN - 09/10/2017 11:02 AM EST Office of Care Management Based on discussions with the multi-disciplinary healthcare team, his sibling, Bettina, would benefit from skilled level of care at discharge. ?? I have met with the patient/outbound sales representative to discuss discharge planning needs. I have provided the [facility] [place] Office of Care Management letter from the [employer] pertaining to rehab referrals. I have also provided a letter describing our affiliations within the [facility] and educated them about their right to choose where referrals are placed. ?? I reviewed the different levels of rehab including SNF, swing, acute and LTAC with the patient/outbound sales representative. ?? The patient/outbound sales representative has been provided a list of facilities within their preferred geographic area. ?? I have requested that the patient/outbound sales representative provide at least three choices for referral. ?? The patient/outbound sales representative have requested referrals to: ?? 1. [facility] ?? 2. [facility] [place], [place] 3. [facility] 4. [facility] ? Expected date of discharge: 09/10/2017 Note routed to [employer] who will communicate referrals to facilities and provide any required information. Shelley Tong RN Case Manager Pager #[phone] * Comi, Christopher Jerez MD - 09/10/2017 7:10 AM EST Images from the original note were not included. ENDOCRINOLOGY CONSULT INPATIENT NOTE [facility] Name: Miguel Angel Mason HPI: Miguel [...] No events overnight per nursing staff and halfway staff at bedside. Patient responding and says he is awesome. Very pleasant. Drinking to thirst. Hungry and thirsty all the time per care givers from halfway, this is not new. 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 ?? Plan: Panhypopituitarism: --- Continue DDAVP BID [...] this TID regimenas requested by his primary tool repairer and sister, he be placed on 3L [...] also be on Vitamin D replacement using 8202-1065 IU daily. Thank you for allowing us [...] III, MD - 09/09/2017 7:43 AM EST [facility] Medicine Attending Daily Progress Note Admit [...] to autonomic instability related to hx of SHROUDMAN insults described above. ? IV access: piv Tubes/Drains: Morse DVT PPX: lovenox Anticipated Disposition: TBD pending clinical course ?? Goals of Care: Full Code Team Pager( Coverage 27/01): #[phone] PCP: NAKIA Cifuentes [phone] Delgado Jeffrey MD PGY-1, Internal Medicine 09/09/2017 [...] given DI. REN SANCHEZ III, MD * Comi, Christopher Jreez MD - 09/09/2017 7:34 AM EST Images from the original note were not included. ENDOCRINOLOGY FOLLOW UP INPATIENT NOTE [facility] Name: Miguel Angel Mason Date of [...] No events overnight per nursing staff and halfway staff at bedside. Patients sodium remains in appropriate range. Urine output higher than previous days. Thirst levels is normal according to halfway staff member that knows the patient well. 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 Given that his halfway has used a fluid restriction in his [...] Current Decision-Making Capacity: sister Bettina Mason (Sibling) [phone] [facility] [id number] (H)- Advance Care Planning: not on file Current Coping/Education/Information Needs: Coping well per care givers Current Functional Ability: has not had PT yet per care givers Functional Status Prior to Admission: lives in halfway setting on 2nd level able to ascend stairs, showers self with stand by assist r/t blindness per care givers, non communicative however the care givers seem able to understand at least some of pt's attempts of communication. Home Environment: 3 level halfway- [facility] Social & Family Supports/Community Resources: Extended Emergency Contact Information Primary Emergency Contact: Bettina Mason Address: [facility] [address] Relation: Sibling Behavioral Health History: NA Substance Use/Abuse: NA Other Pertinent/Service Specific Information: unlikely be able to return to halfway immediately Health/Prescription Coverage: Primary Insurance: Payor: [place] / Plan: [place] / Product Type: *No Product type* / Secondary Insurance: Prescription Coverage: see above Preferred Pharmacy: No Pharmacies Listed Other: None Primary Care Provider: NAKIA Cifuentes [phone] Patient/Caregiver Goals of Treatment: Safe discharge Potential Needs for Transition of Care: Rehab/SNF: TBD Home Health: no DME: no Dialysis: No Community Resources: No Transportation: ambulance Other: None Anticipated Barriers to Discharge/Special Considerations: None Plan: Per discussion with care givers pt may be near facilities such as [facility], [facility] and the [facility] in [place]. CM will need to connect with sister for choices A member of the Care Management team will continue to monitor progress, follow for continuity of care and assist with transition of care planning. CHAVEZ KELSEY RN Pager: [phone] * Christopher Hess MD - 09/08/2017 11:49 AM EST Images from the original note were not included. 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 Zaidi at [facility]. During this hospitalization his sodium down trended [...] the possibility of hypophosphatemic osteomalacia. For this [id number] hour urine studies of calcium, creatinine and [...] III, MD - 09/08/2017 8:25 AM EST Hospital Medicine Attending Daily Progress [...] to autonomic instability related to hx of SHROUDMAN insults described above. ? IV access: piv Tubes/Drains: Morse DVT PPX: lovenox Anticipated Disposition: TBD pending clinical course ?? Goals of Care: Full Code Team Pager(MD Coverage 27/01): #[phone] PCP: NAKIA Cifuentes [phone] Delgado Jeffrey MD PGY-1, Internal Medicine 09/08/2017 [...] left ischial and acetabular fracture with multiple ipvzl-aws-yebgg constructs. Tubing that could represent a surgical [...] right leg only DVT prophylaxis: lovenox Closure: [place] (to be removed at Orthopaedic follow-up appointment) Dressing: Mepilex x 7 days Antibiotics: Ancef x24 hours edna-op, complete Future Appointments Date Time Provider Department Center 09/19/2017 2:[address] [facility] DX ROOM 1 Xray Leb Rad [...] by patient; replaced by nurse. OT hand dewatering filtering supervisor given for distraction. 24 hour urine commence at 0700 although needs to be [id number] r/t mistaken interpretation of a discontinued order from 3 not 3/4. Replaced calcium per orders. HEATHER Mascorro managing patient's care at halfway is instructed to call Bettina (guardian and [...] ECGs available Confirmed by MD Scottie, Sally ([id number]) on 09/05/2017 3:49:31 PM QTCCALC 429 VASCULAR: [...] to autonomic instability related to hx of SHROUDMAN insults described above. ?? IV access: piv Tubes/Drains: morse DVT PPX: lovenox Anticipated Disposition: TBD pending clinical course Goals of Care: Full Code Team Pager( Coverage 27/01): #[phone] PCP: NAKIA Cifuentes [phone] Attestation: IPI Certification I certify that I am a D-H credentialed attending provider with admitting privileges and that the patient meets or has met medical necessity to require an inpatient IPI level of care meeting a minimumof two midnights or is on the [facility] inpatient only procedure list (status C) due to: Acetabular fracture in patient with panhypopituitarism requiring operative repair and post-operative mgmt as above. REN SANCHEZ III, MD 09/07/2017 * Guerrero Bah MD - 09/07/2017 2:15 PM EST Images from the original note were not included. 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 On discussion with his primary tool repairer and his sister, however, they have made [...] and normal PTH level. GENEVIEVE PAGE MD Computer Game Designerchef & owner Section of Endocrinology [facility] * Desean De Oliveira [...] left ischial and acetabular fracture with multiple rpxjg-pkg-fannz constructs. Tubing that could represent a surgical [...] Time Provider Department Center 09/19/2017 2:[address] [facility] DX ROOM 1 Xray Leb Rad Clin 09/19/2017 3:10 PM Amy Lance MD [facility] Associated attestation - Amy Lance MD [...] ECGs available Confirmed by MD Scottie, Sally ([id number]) on 09/05/2017 3:49:31 PM QTCCALC 429 VASCULAR: [...] to autonomic instability related to hx of SHROUDMAN insults described above. ?? 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 He is with rn wound care and eating at the time. 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 GENEVIEVE PAGE MD Computer Game Designerchef & owner Section of Endocrinology [facility] * Desean De Oliveira W - 09/06/2017 6:23 AM EST Orthopaedic Surgery Progress Note Surgery/Issue: Procedure(s): ORIF left acetabulum Attending: Dr. Lance Date of surgery: 09/04/2017 Subjective/Events: AMPARO, appears more comfortable today. Both drains are [...] left ischial and acetabular fracture with multiple lqvqq-upc-kuspu constructs. Tubing that could represent a surgical [...] Time Provider Department Center 09/19/2017 2:[address] [facility] DX ROOM 1 Xray Leb Rad [...] ECGs available Confirmed by MD Scottie, Sally ([id number]) on 09/05/2017 3:49:31 PM QTCCALC 429 VASCULAR: [...] instability related to the aforementioned hx of SHROUDMAN insults. ?? Plan # Acetabular fracture -underwent [...] to autonomic instability related to hx of SHROUDMAN insults described above. ?? 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 She was telling me sister wants to speak with us as she feels he should be on DDAVP three times a day instead of twice a day. 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 I spoke with his primary tool repairer, Dr. Wilder Zaidi of [facility] Department of Endocrinology, for more details on [...] could be related to renal phosphate wasting ([id number]) He is not acidemic nor hypokalemic, so [...] citrate 950mg po TID GENEVIEVE PAGE MD Computer Game Designerchef & owner Section of Endocrinology [facility] * Celine Power MD - 09/05/2017 7:49 AM EST Left pelvic drain removed. 40 intact holes visible in tubing. Drain sponge and overlying gauze for dressing. Patient tolerated drain removal well. Celine Power MD [id number] * De Oliveira, Desean W - 09/05/2017 6:16 AM EST Orthopaedic Surgery Progress Note Surgery/Issue: Procedure(s): ORIF left acetabulum Attending: Dr. Lance Date of surgery: 09/04/2017 Subjective/Events: Comfortable appearing this morning. Per nursing he pulled out his right ZOHAIB drain. Otherwise no issues overnight. Objcetive: Temp: [36 ??C (96.8 ??F)-37.1 ??C (98.8 ??F)] Heart Rate: [103-134] Resp: [14-21] BP: (97-132)/(55-80) Intake/Output Summary (Last 24 hours) at 09/05/17 06 Last data filed at 09/05/17 0256 Gross [...] left ischial and acetabular fracture with multiple jrbro-agd-vauvw constructs. Tubing that could represent a surgical [...] left ischial and acetabular fracture with multiple nvawy-epl-lkvug constructs. Tubing that could represent a surgical [...] 09/04/2017 4:38 PM EST Patient arrived [facility] via bed from PACU s/p [...] 1.01 Last 3 LFTs Recent Labs 09/04/17 035 AST 23 ALT 31 ALKPHOS 75 BILITOT [...] Care: Full Code Team Pager( Coverage 27/01): #[phone] PCP: NAKIA Cifuentes [phone] Attestation: IPI Certification I certify that I [...] accompanied by RN report to RN on 3West * Guerrero Bah MD - 09/04/2017 8:54 AM EST Images from the original note were not included. 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 Apparently at his halfway, he was being kept on a 2L [...] his testosterone replacement dose. GENEVIEVE PAGE MD Computer Game Designerchef & owner Section of Endocrinology [facility] * Nyasia Cochran RN [...] today Desean De Oliveira MD 09/04/2017 Pager: [phone] * David Phillips MD - 09/04/2017 6:00 [...] L Elbow flexion 5/5 R, 5/5 L Heel Former LE: 5/5 R, UT L Hip flexion [...] ng/dL Lactate, whole blood, send to lab ([place]) Result Value Ref Range Lactate WB 3.7 (H) 0.5 - 2.2 mmol/L Rapid Influenza A/B PCR Result Value Ref Range Influenza A PCR Not Detected Not Detected Influenza B PCR Not Detected Not Detected Resp PCR Source ROOTER OPERATOR Swab Urinalysis with reflex Culture Result Value Ref Range Glucose UA Negative Negative mg/dL Protein UA Negative Negative mg/dL Bilirubin UA Negative Negative mg/dL Urobilinogen UA >=4.0 (A) Normal mg/dL pH UA 7.0 5.0 - 8.0 Blood UA Negative Negative mg/dL Ketones UA Negative Negative mg/dL Nitrite UA Negative Negative Leukocytes UA Negative Negative mcL Appearance UA Clear Clear Spec [place] UA 1.020 1.002 - 1.030 Color UA [...] ? Moisés Orr MD PGY-3 Neurology Pager [phone] ?? Neurology Attending ?? I saw and [...] ? David Phillips [place] [address] Pager #[phone] Email: [email or web address] [place] * Fran Gilliam MD - 09/03/2017 6:29 PM EST Hospital Medicine Attending Daily Progress Note Admit Date: 09/02/2017 Hospital Day 1 day Active Hospital Problems Diagnosis ??? Acetabular fracture ??? Diabetes insipidus ??? Adrenal insufficiency ??? Panhypopituitarism ??? Seizure disorder ??? Insomnia ??? Hypothyroidism Resolved Hospital Problems Diagnosis Date Resolved No resolved problems to display. H Active Non-Hospital Problems Diagnosis ??? Blind ??? [...] 3 wbc, hgb, hct plt Recent Labs 09/03/1753 WBC 9.1 HGB 14.8 HCT 43.4 PLATELET 156 Last 3 Lytes Recent Labs 09/03/17 0622 09/03/17 0154 09/03/1753 NA 136 139 Not Perf K 4.2 3.7 Not Perf CL 99 102 Not Perf CO2 26 25 Not Perf BUN 10 10 11 CREATININE 0.99 1.01 0.97 Last 3 LFTs No results for input(s): AST, ALT, ALKPHOS, BILITOT, BILIDIR in the last 7068 hours. Last Ca, Mg, Phos Recent Labs 09/03/17621 CALCIUM 8.8 Last 3 Coags Recent Labs 09/03/1753 PT 13.6 INR 1.1 PTT 26 Last 3 TFT Recent Labs 09/03/17621 TSH 0.01* FSBG Trend No results for [...] Care: Full Code Team Pager(MD Coverage 27/01): #[phone] PCP: NAKIA Cifuentes [phone] Attestation: IPI Certification I certify that I am a D-H credentialed attending provider with admitting privileges and that the patient meets or has met medical necessity to require an inpatient IPI level of care meeting a minimumof two midnights or is on the [facility] inpatient only procedure list (status C) [...] HPI This is a 27 y.o. male halfway resident with a history of panhypopituitarism, DI, [...] over the phone, so she had his courtesy bus driver take him to the hospital. At [facility], when asked about pain he would point to his left knee. Ultimately, CT was performed which showed acute leftacetabular fracture and osteopenia. He received several doses of morphine, dilaudid, and ativan forpain and sedation prior to transfer. He has not had a seizure for about 4 years. No recent med changes according to Bettina. Labs at [facility] remarkable for Na 132. In the ER [...] None Social History Narrative Lives at the [facility], moved in 11/07/2014. Family Reviewed and non-contributory. [...] holding for OR ?? PCP: NAKIA Cifuentes [phone] Christopher Dalal Pager #[phone] Hospital Medicine IPI Certification I certify that I am a D-H credentialed attending provider with admitting privileges and that the patient meets or has met medical necessity to require an inpatient IPI level of care meeting a minimumof two midnights or is on the [facility] inpatient only procedure list (status C) due to: acetabular fracture requiring operative repair. documented in this encounter ED Notes * Darren Joyce RN - 09/03/2017 3:23 PM EST Pt resting on bed in the room with head of english at the bedside. Pt to have CT [...] increased, appears to be in pain. Dr Katlin dhaliwal. * Crista Baptiste NRP - 09/03/2017 3:03 [...] and incontinence who presents as transfer from [place]; he is not accompanied by family; history obtained from records at [facility]. [facility] records, he had a possible tonic clonic seizure on bus, and then was unresponsive and gurgling. He was taken to the ED and noted to have left hip and knee pain. Imaging there showed possible left acetabular fx so he was transferred here for further management. At [facility] ED, he got ativan 0.5 and morphine [...] y.o. who I accepted in transfer from [place] The patient will be evaluated in the [...] Ongoing (Interventions Implemented as Appropriate) 03/07/18 0256 03/07/18 0920 Coping/Psychosocial Plan Of Care Reviewed With -- patient Plan of Care Review Progress no change -- OUTCOME EVALUATION NOTE: OUTCOME SUMMARY: Pt is Alert to self, VSS. Pt this morning was lethargic and hard to awaken, pt woke up for morning meds and breakfast but then fell back to sleep, aware and ordered STAT labs. Pt was [...] Activity Activity Type -- -- ambulated in qunin Activity Assistance Provided -- -- assistance, 1 [...] OTHER [place] Fall Risk High -- -- 03/06/182199 Restraint Interventions Safety Promotion/Fall Prevention fall prevention [...] Control Outcome: Ongoing (Interventions Implemented as Appropriate) 03/06/1892903/06/182199 Coping Strategies Supportive Measures active listening utilized;self-care [...] Review Outcome: Ongoing (Interventions Implemented as Appropriate) 03/06/1834303/06/18 09 Coping/Psychosocial Plan Of Care Reviewed With [...] Ongoing (Interventions Implemented as Appropriate) 01/05/18221502/05/18 0534 03/04/181857 Discharge Needs Assessment Concerns To Be Addressed [...] Review Outcome: Ongoing (Interventions Implemented as Appropriate) 03/04/18185803/05/18 0940 Coping/Psychosocial Plan Of Care Reviewed With [...] ordered. Inform MD of any changes. Await rehab/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 care placement. INDIVIDUALIZED FALL PREVENTION INTERVENTIONS: Patient-specific [...] Mutuality Outcome: Ongoing (Interventions Implemented as Appropriate) 01/25/183 Individualization Patient Specific Preferences Enjoys icecream, applesauce [...] Ongoing (Interventions Implemented as Appropriate) 03/02/18 0207 Skin Integrity Impairment, Risk/Actual (Adult) Skin [...] and aggressive. VSS on room air, except [id number] throughout morning. 3 samples drawn but hemolyzed [...] Review Outcome: Ongoing (Interventions Implemented as Appropriate) 02/25/1843202/26/1831 Coping/Psychosocial Plan Of Care Reviewed With -- [...] Ongoing (Interventions Implemented as Appropriate) 02/23/18 0415 02/23/18 3877 Coping/Psychosocial Plan Of Care Reviewed With -- [...] Implemented as Appropriate) 02/23/18 0908 02/23/18 1700 Restraint Interventions Safety Promotion/Fall Prevention -- [...] Outcome: Ongoing (Interventions Implemented as Appropriate) 02/17/18 18302/20/18 0953 Coping/Psychosocial Plan Of Care Reviewed With [...] Ongoing (Interventions Implemented as Appropriate) 02/17/18 1833 02/19/18 2200 Coping/Psychosocial Plan Of Care Reviewed With [...] Ongoing (Interventions Implemented as Appropriate) 02/17/18 1833 02/19/18 0923 Coping/Psychosocial Plan Of Care Reviewed With [...] Review Outcome: Ongoing (Interventions Implemented as Appropriate) 02/17/18183202/18/18 0755 Coping/Psychosocial Plan Of Care Reviewed With [...] Ongoing (Interventions Implemented as Appropriate) 02/17/18 183 Thought Process Alteration Related Risk Factors (Thought Process Alteration) pain;sensory impairment Signs and Symptoms (Thought Process Alteration) aggressive/combative behaviors;limited concentration/attention;mood lability Problem: Fluid Volume Excess (Adult,Obstetrics,Pediatric) Goal: Balanced Intake/Output Patient will demonstrate the desired outcomes by discharge/transition of care. Outcome: Ongoing (Interventions Implemented as Appropriate) 02/17/181832 Fluid Volume Excess (Adult,Obstetrics,Pediatric) Balanced Intake/Output making [...] (Interventions Implemented as Appropriate) 02/16/18 1719 02/16/182129 Coping Strategies Supportive Measures positive reinforcement provided [...] Outcome: Ongoing (Interventions Implemented as Appropriate) 02/16/18 06 Coping/Psychosocial Plan Of Care Reviewed With patient [...] Review Outcome: Ongoing (Interventions Implemented as Appropriate) 02/13/182 02/13/182010 Coping/Psychosocial Plan Of Care Reviewed With [...] Outcome: Ongoing (Interventions Implemented as Appropriate) 02/13/18 175 Coping/Psychosocial Plan Of Care Reviewed With patient [...] Ongoing (Interventions Implemented as Appropriate) 02/05/18 0536 02/12/181946 Coping/Psychosocial Plan Of Care Reviewed With -- [...] (Interventions Implemented as Appropriate) 02/05/18 0536 02/11/18 2120 Coping/Psychosocial Plan Of Care Reviewed With -- [...] (Interventions Implemented as Appropriate) 02/11/18 0600 02/11/18 2120 02/12/18 0148 Restraint Interventions Safety Promotion/Fall Prevention -- [...] Health Outpatient/Agency/Support Group Needs assisted living facility (specify);halfway (specify) -- -- Anticipated Changes Related to [...] Appropriate) 02/11/18 1717 Fluid Volume Excess (Adult,Obstetrics,Pediatric) Balanced Intake/Output making [...] Review Outcome: Ongoing (Interventions Implemented as Appropriate) 08/08/24 53502/09/182044 Coping/Psychosocial Plan Of Care Reviewed With -- [...] Health Outpatient/Agency/Support Group Needs assisted living facility (specify);halfway (specify) -- -- Anticipated Changes Related to [...] desired outcomes by discharge/transition of care. 02/05/18 0570 Skin Integrity Impairment, Risk/Actual (Adult) Skin Integrity/Wound [...] Outcome: Ongoing (Interventions Implemented as Appropriate) 02/05/1836 02/08/18 1530 Coping/Psychosocial Plan Of Care Reviewed [...] until medically ready for discharge back to halfway.? INDIVIDUALIZED FALL PREVENTION INTERVENTIONS: ?? Patient-specific fall [...] Health Outpatient/Agency/Support Group Needs assisted living facility (specify);halfway (specify) -- -- Anticipated Changes Related to [...] Implemented as Appropriate) 02/01/18 1000 02/03/18 0300 02/03/182029 Restraint Interventions Safety Promotion/Fall Prevention -- -- [...] Health Outpatient/Agency/Support Group Needs assisted living facility (specify);halfway (specify) -- Anticipated Changes Related to Illness [...] Health Outpatient/Agency/Support Group Needs assisted living facility (specify);halfway (specify) -- Anticipated Changes Related to Illness [...] Care Interventions Self-Care Promotion independence encouraged -- [place] Fall Risk History of Falling -- 25 [...] Health Outpatient/Agency/Support Group Needs assisted living facility (specify);halfway (specify) -- Anticipated Changes Related to Illness [...] given. Agitated and restless at beginning of cook night, but able to calm down and rest [...] Handling Outcome: Ongoing (Interventions Implemented as Appropriate) 01/30/18205101/31/185 02/01/18 0024 Restraint Interventions Safety Promotion/Fall Prevention -- [...] Outcome: Ongoing (Interventions Implemented as Appropriate) 01/31/18 2045 02/01/18 0024 02/01/18 0200 Coping Strategies Supportive Measures [...] Health Outpatient/Agency/Support Group Needs assisted living facility (specify);halfway (specify) -- Anticipated Changes Related to Illness [...] care. Outcome: Ongoing (Interventions Implemented as Appropriate) 01/31/18 1747 Thought Process Alteration (Adult) Improved Thought Process [...] 97% ??? BMI 31.29 kg/m2 Jodee Azevedo, RN Goal: Fall Prevention-Safe Patient Handling Outcome: Ongoing (Interventions Implemented as Appropriate) 01/31/18 174 Restraint Interventions Safety Promotion/Fall Prevention activity supervised;other [...] Handling Outcome: Ongoing (Interventions Implemented as Appropriate) 01/30/18205101/31/18143 Restraint Interventions Safety Promotion/Fall Prevention -- activity [...] Control Outcome: Ongoing (Interventions Implemented as Appropriate) 01/30/18205101/31/18143 Coping Strategies Supportive Measures active listening utilized;positive reinforcement provided;verbalization of feelings encouraged;self-care encouraged -- Safety Interventions Isolation Precautions -- standard precautions maintained Infection Prevention -- rest/sleep promoted;single patient room provided;equipment surfaces disinfected;environmental surveillance performed Goal: Discharge Needs Assessment Outcome: Ongoing (Interventions Implemented as Appropriate) 01/05/186 01/30/18 171 Discharge Needs Assessment Concerns To Be [...] Health Outpatient/Agency/Support Group Needs assisted living facility (specify);halfway (specify) -- Anticipated Changes Related to Illness none -- Living Environment Transportation Available agency transportation;van, wheelchair accessible;ambulance -- Activity/Self Care Review of Systems Equipment Currently Used at Home none -- Goal: Interdisciplinary Rounds/Family Conf Outcome: Ongoing (Interventions Implemented as Appropriate) 01/30/182 Interdisciplinary Rounds/Family Conf Participants patient;nursing Problem: Skin [...] Outcome: Ongoing (Interventions Implemented as Appropriate) 01/30/181711 Thought Process Alteration (Adult) Improved Thought Process [...] Outcome: Ongoing (Interventions Implemented as Appropriate) 01/30/181711 Thought Process Alteration (Adult) Improved Thought Process making progress toward outcome * Plan of Care - Jolene Domínguez RN - 01/30/2018 5:41 AM EDT Problem: Patient Care Overview Goal: Plan of Care Review Outcome: Ongoing (Interventions Implemented as Appropriate) 01/21/18 0329 01/29/182029 Coping/Psychosocial Plan Of Care Reviewed With -- [...] EVALUATION: * Plan of Care - Cristy uL RN - 01/25/2018 2:48 AM EDT Problem: [...] and meds given. Sodium 140. RN and PHYS THER assisted with ambulating patient. He walked 40ft [...] Appropriate) 01/14/18 1844 Interdisciplinary Rounds/Family Conf Participants physician;nursing;geriatric case manager OUTCOME EVALUATION NOTE: OUTCOME SUMMARY: AxO to [...] Appropriate) 01/14/18 1844 Interdisciplinary Rounds/Family Conf Participants physician;nursing;geriatric case manager OUTCOME EVALUATION NOTE: OUTCOME SUMMARY: AxO to [...] Appropriate) 01/14/18 1844 Interdisciplinary Rounds/Family Conf Participants physician;nursing;geriatric case manager OUTCOME EVALUATION NOTE: OUTCOME SUMMARY: AxO to [...] Control Outcome: Ongoing (Interventions Implemented as Appropriate) 01/17/183 01/18/18 0444 Coping Strategies Supportive Measures active [...] Slept on and off overnight. This morning [id number], pt threw bed guillen across the room [...] Outcome: Ongoing (Interventions Implemented as Appropriate) 01/15/18 125 Coping/Psychosocial Plan Of Care Reviewed With patient [...] Outcome: Ongoing (Interventions Implemented as Appropriate) 01/15/18 0801/15/18 1235 Coping Strategies Supportive Measures active listening [...] remain at the bedside. Pt listened to Migel dela cruz for most of the shift. [...] Care Overview Goal: Plan of Care Review 01/09/1840701/11/18801 Coping/Psychosocial Plan Of Care Reviewed With -- [...] Review Outcome: Ongoing (Interventions Implemented as Appropriate) 01/07/181717 Coping/Psychosocial Plan Of Care Reviewed With patient [...] Health Outpatient/Agency/Support Group Needs assisted living facility (specify);halfway (specify) Anticipated Changes Related to Illness none [...] Conf Outcome: Ongoing (Interventions Implemented as Appropriate) 01/05/18 2215 Interdisciplinary Rounds/Family Conf Participants geriatric case manager;dietitian/nutrition services;nursing;physician;patient;family;social work/services OUTCOME EVALUATION NOTE: OUTCOME SUMMARY: [...] care. Outcome: Ongoing (Interventions Implemented as Appropriate) 01/05/18 2215 Fluid Volume Excess (Adult,Obstetrics,Pediatric) Balanced Intake/Output [...] motion and massage with lotion performed by [facility]. We have been trying to increase length of ambulation however, due to behavior patient has only been safe to stand-pivot from the bed to wheelchair/commode. Patient did sit out of bed in the wheelchair, wheeled himself around the unit multiple times, went outside with the [facility], and nursing attempted scheduled toileting. Patient [...] his PRN Seroquel, nursing transferred patient back [facility] bed, and we were able to [...] OUTCOME EVALUATION: * Plan of Care - Dessert, Denisse R, RN - 01/05/2018 4:14 AM EDT Problem: [...] and ADLs]: Sitter. Surveillance [continuous indirect monitoring]: Jeet Patient-specific fall prevention interventions for sensory deficits provided, if applicable: [X] Yes CPG GOAL OUTCOME EVALUATION: * Plan of Care - Rony De La Fuente RN - 01/04/2018 2:16 AM EDT Problem: Patient Care Overview Goal: Plan of Care Review Outcome: Ongoing (Interventions Implemented as Appropriate) 12/31/17 0359 01/03/187 Coping/Psychosocial Plan Of Care Reviewed With -- [...] (Interventions Implemented as Appropriate) 12/31/17 0359 01/03/18 0889 Coping/Psychosocial Plan Of Care Reviewed With -- [...] (Interventions Implemented as Appropriate) 12/31/17 0359 01/02/18 9304 Coping/Psychosocial Plan Of Care Reviewed With -- [...] desmopressin increased from 0.05mg to 0.1mg and instructed RN and PHYS THER to make sure pt. Is getting his [...] Review Outcome: Ongoing (Interventions Implemented as Appropriate) 12/31/179 Coping/Psychosocial Plan Of Care Reviewed With patient [...] OUTCOME EVALUATION: * Plan of Care - Jazzmien Pacsual RN - 12/30/2017 3:42 AM EDT Problem: [...] Hourly rounding, 1:1 sitter at bedside, call [facility], room near RN station Patient-specific fall [...] vanilla ice cream with his pills tonight. PHYS THER sitter remains at bedside ensuring safety. PLAN [...] Outcome: Ongoing (Interventions Implemented as Appropriate) 12/28/17 184 Coping/Psychosocial Plan Of Care Reviewed With patient [...] an assessment. One time BMP obtained at [place]. Incontinent of large amounts of urine. No [...] facility;rehabilitation facility;nursing facility, skilled;nursing facility, basic;adult foster care/halfway Current Discharge Risk chronically ill;cognitively impaired;dependent with mobility/activities of daily living;physical impairment Discharge Disposition still a patient Current Health Outpatient/Agency/Support Group Needs assisted living facility (specify);senior living facility (specify);[facility] acute care facility (specify);halfway (specify) Anticipated Changes Related to Illness none Living Environment Transportation Available family or friend will provide;ambulance;van, wheelchair accessible Activity/Self Care Review of Systems Equipment Currently Used at Home none * Plan of Care - Sarika Michael RN - 12/27/2017 4:35 AM EDT Problem: Patient Care Overview Goal: Plan of Care Review Outcome: Ongoing (Interventions Implemented as Appropriate) 12/17/1752212/26/178 Coping/Psychosocial Plan Of Care Reviewed With -- [...] station, call morris within reach, sitter at [facility]. 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..] music and continued with the 1:1 sitter. PHYS THER played the guitar for pt which appeared [...] Ongoing (Interventions Implemented as Appropriate) 12/17/17 0523 12/22/172014 Coping/Psychosocial Plan Of Care Reviewed With -- [...] Ongoing (Interventions Implemented as Appropriate) 12/17/17 0523 12/22/17 0834 Coping/Psychosocial Plan Of Care Reviewed With -- patient (caregiver ) Plan of Care Review Progress progress towards functional goals is fair -- OUTCOME EVALUATION NOTE: OUTCOME SUMMARY: Pt aler to self, VSS. Pt went outside this morning with caregiver and PHYS THER. Pt was incontinent throughout shift. Pt started [...] Review Outcome: Ongoing (Interventions Implemented as Appropriate) 12/17/1752212/21/172011 Coping/Psychosocial Plan Of Care Reviewed With -- [...] VSS. Pt went outside with caregiver and PHYS THER. Pt became more agitated in the afternoon, [...] Ongoing (Interventions Implemented as Appropriate) 12/17/17 0523 12/19/172017 Coping/Psychosocial Plan Of Care Reviewed With [...] (Interventions Implemented as Appropriate) 12/17/17 0523 12/17/17 0847 Coping/Psychosocial Plan Of Care Reviewed [...] Ongoing (Interventions Implemented as Appropriate) 12/13/1748 12/13/17 4820 Coping Strategies Supportive Measures active listening utilized;decision-making [...] with FWW and 1-2assist Anticipated Discharge Disposition: senior living facility (could go to handicap accesible halfway with assistance) [facility] PTA Pager: [phone] Inpatient Physical Therapy 12/10/17 1145 Rehab Evaluation [...] pain when attempting stairs) Bed Mobility Assessment/Treatment [id number] Wilson (Bed Mobility) supervision required Comment (Bed Mobility) extra time required Transfer Assessment/Treatment Bed-Chair Wilson (Transfers) minimum assist (75% patient effort) Ytf-Xaonl-Pil Assistive Device (Transfers) rolling walker Wilson (Sit-Stand Transfers) supervision required Wilson (Stand-Sit Transfers) supervision required Ywt-Avnuh-Ngk Assistive Device (Transfers) rolling walker Safety Issues (Transfers) balance decreased during turns;sequencing ability decreased;step length decreased;weight-shifting ability decreased Impairments (Transfers) balance impaired;strength decreased;vision impaired Comment (Transfers) assist for walker management when turning, cues to place L LE flat on the floor Gait Assessment/Treatment Wilson (Gait) contact guard assist Assistive Device (Gait) [...] x 1 Handrail Location (Stairs) both sides Wilson (Stairs) moderate assist (50% patient effort);2 person [...] all bed mobility activities Bed Mobility Goal, Wilson Level moderate assist (50% patient effort) Bed Mobility Goal, Outcome Achieved goal ongoing Gait Training Goal Gait Training Goal, Date Established 09/09/17 Gait Training Goal, Time to Achieve by discharge Gait Training Goal, Wilson Level minimum assist (75% patient effort) Gait Training Goal, Assist Device walker, rolling Gait Training Goal, Distance to Achieve 15 ft Gait Training Goal, Outcome goal met Transfer Training Goal Transfer Training Goal, Date Established 09/09/17 Transfer Training Goal, Time to Achieve by discharge Transfer Training Goal, Activity Type njw-ik-bfagf/vmgah-pf-tav;zgr-xq-usqja/gcxrx-sg-rpm Transfer Train Goal, Wilson Level minimum assist (75% patient effort) Transfer Training Goal, Assist Device walker, rolling Transfer Training Goal, Outcome goal ongoing Physical Therapy Goal PT Goal, Date Established 09/09/17 PT Goal, Time to Achieve by discharge PT Goal, Activity Type Pt will propel self in w/c household distances PT Goal, Wilson Level set up required;supervision required PT Goal, Outcome goal ongoing Clinical Impression Therapy Frequency 2-4 times/wk Anticipated Equipment Needs at Discharge front wheeled walker Anticipated Discharge Disposition senior living facility (could go to handicap accesible halfway with assistance) * Plan of Care - [...] facility;rehabilitation facility;nursing facility, skilled;nursing facility, basic;adult foster care/halfway Current Discharge Risk chronically ill;cognitively impaired;dependent with mobility/activities of daily living;physical impairment Discharge Disposition still a patient Current Health Outpatient/Agency/Support Group Needs assisted living facility (specify);senior living facility (specify);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 Night ROOTER OPERATOR Marya paged, will pass along to [...] Handling Outcome: Ongoing (Interventions Implemented as Appropriate) 12/08/1771912/08/17199912/08/172199 Restraint Interventions Safety Promotion/Fall Prevention -- -- [...] facility;rehabilitation facility;nursing facility, skilled;nursing facility, basic;adult foster care/halfway Current Discharge Risk chronically ill;cognitively impaired;dependent with mobility/activities of daily living;physical impairment Discharge Disposition still a patient Current Health Outpatient/Agency/Support Group Needs assisted living facility (specify);senior living facility (specify);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 Sitter and home energy consultant remained at beside throughout shift. No acute [...] facility;rehabilitation facility;nursing facility, skilled;nursing facility, basic;adult foster care/halfway Current Discharge Risk chronically ill;cognitively impaired;dependent with mobility/activities of daily living;physical impairment Discharge Disposition still a patient Current Health Outpatient/Agency/Support Group Needs assisted living facility (specify);senior living facility (specify);[facility] acute care facility (specify);halfway (specify) Anticipated Changes Related to Illness none Living Environment Transportation Available family or friend will provide;ambulance;van, wheelchair accessible Activity/Self Care Review of Systems Equipment Currently Used at Home none Goal: Interdisciplinary Rounds/Family Conf Outcome: Ongoing (Interventions Implemented as Appropriate) 11/27/1757 Interdisciplinary Rounds/Family Conf Participants nursing;patient Problem: Skin [...] weakness, deficit or s/s of stroke. VSS. pie filling mixer at bedside, verbalizes I am not 100% [...] Surveillance [continuous indirect monitoring]: Room near RN stationjeet sitter at bedside Patient-specific fall prevention interventions [...] facility;rehabilitation facility;nursing facility, skilled;nursing facility, basic;adult foster care/halfway Current Discharge Risk chronically ill;cognitively impaired;dependent with mobility/activities of daily living;physical impairment Discharge Disposition still a patient Current Health Outpatient/Agency/Support Group Needs assisted living facility (specify);senior living facility (specify);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 acute care facility (specify);halfway (specify) Anticipated Changes Related to Illness none [...] (Interventions Implemented as Appropriate) 12/05/17 1701 12/05/17 194 Coping/Psychosocial Plan Of Care Reviewed With -- [...] Ongoing (Interventions Implemented as Appropriate) 12/05/17 0836 12/05/171945 Coping Strategies Supportive Measures active listening utilized;positive [...] facility;rehabilitation facility;nursing facility, skilled;nursing facility, basic;adult foster care/halfway Current Discharge Risk chronically ill;cognitively impaired;dependent with mobility/activities of daily living;physical impairment Discharge Disposition still a patient Current Health Outpatient/Agency/Support Group Needs assisted living facility (specify);senior living facility (specify);[facility] acute care facility (specify);halfway (specify) Anticipated Changes Related to Illness none [...] Ongoing (Interventions Implemented as Appropriate) 12/05/17 170 Skin Integrity Impairment, Risk/Actual (Adult) Skin Integrity/Wound Healing making progress toward outcome Problem: Thought Process Alteration (Adult) Goal: Improved Thought Process Patient will demonstrate the desired outcomes by discharge/transition of care. Outcome: Ongoing (Interventions Implemented as Appropriate) 12/05/17 170 Thought Process Alteration (Adult) Improved Thought Process making progress toward outcome Problem: Fluid Volume Excess (Adult,Obstetrics,Pediatric) Goal: Stable Weight Patient will demonstrate the desired outcomes by discharge/transition of care. Outcome: Ongoing (Interventions Implemented as Appropriate) 12/04/17605 Fluid Volume Excess (Adult,Obstetrics,Pediatric) Stable Weight making progress toward outcome Goal: Balanced Intake/Output Patient will demonstrate the desired outcomes by discharge/transition of care. Outcome: Ongoing (Interventions Implemented as Appropriate) 12/04/17605 Fluid Volume Excess (Adult,Obstetrics,Pediatric) Balanced Intake/Output making progress toward outcome * Plan of Care - Dani Montoya RN - 12/05/2017 5:31 PM EDT Problem: Patient Care Overview Goal: Plan of Care Review Outcome: Ongoing (Interventions Implemented as Appropriate) 12/05/171700 Coping/Psychosocial Plan Of Care Reviewed With patient [...] 20s while sitting up eating dinner, MD Courtney aware. 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 acute care facility (specify);halfway (specify) Anticipated Changes Related to Illness none [...] FWW and 1-2 assist Anticipated Discharge Disposition: senior living facility (could go to handicap accesible halfway with assistance) [facility] PTA Pager: [phone] Inpatient Physical Therapy 12/04/17 1051 Rehab Evaluation Document Type therapy note (daily [...] after ambulating, reports pain) Bed Mobility Assessment/Treatment Ssllfh-th-Rph Wilson (Bed Mobility) moderate assist (50% patient effort) Comment (Bed Mobility) extra time required, donned socks and gown with assist Transfer Assessment/Treatment Bed-Chair Wilson (Transfers) minimum assist (75% patient effort);2 person assist required Znu-Vovkp-Pln Assistive Device (Transfers) rolling walker Wilson (Sit-Stand Transfers) contact guard assist Wilson (Stand-Sit Transfers) contact guard assist Wns-Uxfds-Iac Assistive Device (Transfers) rolling walker Safety Issues (Transfers) balance decreased during turns;step length decreased;weight-shifting ability decreased Impairments (Transfers) strength decreased;vision impaired Comment (Transfers) steady with FWW, occasional assist to move walker due to pt's decreased vision Gait Assessment/Treatment Wilson (Gait) contact guard assist Assistive Device (Gait) [...] all bed mobility activities Bed Mobility Goal, Wilson Level moderate assist (50% patient effort) Bed Mobility Goal, Outcome Achieved goal ongoing Gait Training Goal Gait Training Goal, Date Established 09/09/17 Gait Training Goal, Time to Achieve by discharge Gait Training Goal, Wilson Level minimum assist (75% patient effort) Gait Training Goal, Assist Device walker, rolling Gait Training Goal, Distance to Achieve 15 ft Gait Training Goal, Outcome goal met Transfer Training Goal Transfer Training Goal, Date Established 09/09/17 Transfer Training Goal, Time to Achieve by discharge Transfer Training Goal, Activity Type nzn-ch-xcpkp/orkoe-pb-aot;iuc-xx-scnty/nwrqn-ot-apx Transfer Train Goal, Wilson Level minimum assist (75% patient effort) Transfer Training Goal, Assist Device walker, rolling Transfer Training Goal, Outcome goal ongoing Physical Therapy Goal PT Goal, Date Established 09/09/17 PT Goal, Time to Achieve by discharge PT Goal, Activity Type Pt will propel self in w/c household distances PT Goal, Wilson Level set up required;supervision required PT Goal, Outcome goal ongoing Clinical Impression Therapy Frequency 2-4 times/wk Anticipated Discharge Disposition senior living facility (could go to handicap accesible halfway with assistance) * Plan of Care - [...] pt and then also put on the [employer] Channel for him to listen to. This [...] ground, as well as, sitter playing the [employer] forpt. The music, especially the guitar and [place] CD seemed to calm pt a bit, [...] Ongoing (Interventions Implemented as Appropriate) 11/25/17 0401 11/30/172114 Coping/Psychosocial Plan Of Care Reviewed With -- [...] Handling Outcome: Ongoing (Interventions Implemented as Appropriate) 11/29/1755711/30/17211412/01/17 0150 Restraint Interventions Safety Promotion/Fall Prevention -- [...] Control Outcome: Ongoing (Interventions Implemented as Appropriate) 11/30/17211412/01/17149 Coping Strategies Supportive Measures active listening utilized [...] Ongoing (Interventions Implemented as Appropriate) 11/25/17 0401 11/28/172217 Coping/Psychosocial Plan Of Care Reviewed With -- [...] Control Outcome: Ongoing (Interventions Implemented as Appropriate) 11/28/17 2218 11/29/17 0400 Coping Strategies Supportive Measures active listening [...] Outcome: Ongoing (Interventions Implemented as Appropriate) 11/25/17 04011/27/172106 Coping/Psychosocial Plan Of Care Reviewed With -- [...] in pain. PRN dilaudid given in the fishing tool technician oil well for pain as well. Incontinent of urine [...] facility;rehabilitation facility;nursing facility, skilled;nursing facility, basic;adult foster care/halfway Current Discharge Risk chronically ill;cognitively impaired;dependent with mobility/activities of daily living;physical impairment Discharge Disposition still a patient Current Health Outpatient/Agency/Support Group Needs assisted living facility (specify);senior living facility (specify);[facility] acute care facility (specify);halfway (specify) Anticipated Changes Related to Illness none Living Environment Transportation Available family or friend will provide;ambulance;van, wheelchair accessible Activity/Self Care Review of Systems Equipment Currently Used at Home none Goal: Interdisciplinary Rounds/Family Conf Outcome: Ongoing (Interventions Implemented as Appropriate) 11/23/172133 Interdisciplinary Rounds/Family Conf Participants nursing;occupational therapy;physical therapy;physician;patient;social work/services;dietitian/nutrition services;geriatric case manager Problem: Skin Integrity Impairment, Risk/Actual (Adult) Goal: [...] Outcome: Ongoing (Interventions Implemented as Appropriate) 11/25/17204811/26/17 020 Coping Strategies Supportive Measures relaxation techniques promoted;positive [...] Handling Outcome: Ongoing (Interventions Implemented as Appropriate) 11/23/17213611/24/17205611/25/17 1000 Restraint Interventions Safety Promotion/Fall Prevention -- [...] facility;rehabilitation facility;nursing facility, skilled;nursing facility, basic;adult foster care/halfway Current Discharge Risk chronically ill;cognitively impaired;dependent with mobility/activities of daily living;physical impairment Discharge Disposition still a patient Current Health Outpatient/Agency/Support Group Needs assisted living facility (specify);senior living facility (specify);[facility] acute care facility (specify);halfway (specify) Anticipated Changes Related to Illness none Living Environment Transportation Available family or friend will provide;ambulance;van, wheelchair accessible Activity/Self Care Review of Systems Equipment Currently Used at Home none Goal: Interdisciplinary Rounds/Family Conf Outcome: Ongoing (Interventions Implemented as Appropriate) 11/23/172133 Interdisciplinary Rounds/Family Conf Participants nursing;occupational therapy;physical therapy;physician;patient;social work/services;dietitian/nutrition services;geriatric case manager Problem: Skin Integrity Impairment, Risk/Actual (Adult) Goal: [...] FWW and frequent cues Anticipated Discharge Disposition: senior living facility (could go to handicap accesible halfway with assistance) [facility] PTA Pager: [phone] Inpatient Physical Therapy 11/25/17 1030 Rehab Evaluation [...] (frequently reported no pain) Bed Mobility Assessment/Treatment Txbmaj-sp-Lvb Wilson (Bed Mobility) moderate assist (50% patient effort) Ayb-ur-Jwdjhl Wilson (Bed Mobility) minimum assist (75% patient effort) Impairments (Bed Mobility) vision impaired Comment (Bed Mobility) Extra time required, able to reposition himself in bed Transfer Assessment/Treatment Bed-Chair Wilson (Transfers) moderate assist (50% patient effort);2 person assist required Chair-Bed Wilson (Transfers) moderate assist (50% patient effort);2 person assist required Wfb-Xlvpi-Gvm Assistive Device (Transfers) (B hand hold) Wilson (Sit-Stand Transfers) contact guard assist Wilson (Stand-Sit Transfers) contact guard assist Hjf-Qonhs-Yup Assistive Device (Transfers) (// bars) Wilson (Toilet Transfers) minimum assist (75% patient effort);2 [...] for any period of time Gait Assessment/Treatment Wilson (Gait) contact guard assist;2 person assist required [...] all bed mobility activities Bed Mobility Goal, Wilson Level moderate assist (50% patient effort) Bed Mobility Goal, Outcome Achieved goal ongoing Gait Training Goal Gait Training Goal, Date Established 09/09/17 Gait Training Goal, Time to Achieve by discharge Gait Training Goal, Wilson Level minimum assist (75% patient effort) Gait Training Goal, Assist Device walker, rolling Gait Training Goal, Distance to Achieve 15 ft Gait Training Goal, Outcome goal ongoing Transfer Training Goal Transfer Training Goal, Date Established 09/09/17 Transfer Training Goal, Time to Achieve by discharge Transfer Training Goal, Activity Type bdt-gr-hztyp/aerbf-nu-ojn;olv-ov-ieceq/iekfi-ny-fih Transfer Train Goal, Wilson Level minimum assist (75% patient effort) Transfer Training Goal, Assist Device walker, rolling Transfer Training Goal, Outcome goal ongoing Physical Therapy Goal PT Goal, Date Established 09/09/17 PT Goal, Time to Achieve by discharge PT Goal, Activity Type Pt will propel self in w/c household distances PT Goal, Wilson Level set up required;supervision required PT Goal, Outcome goal ongoing Clinical Impression Therapy Frequency 2-4 times/wk Anticipated Discharge Disposition senior living facility (could go to handicap accesible halfway with assistance) * Plan of Care - [...] sitter. Pt was agitated and restless from 0014-9824 and then seemed to calm down and [...] facility;rehabilitation facility;nursing facility, skilled;nursing facility, basic;adult foster care/halfway Current Discharge Risk chronically ill;cognitively impaired;dependent with mobility/activities of daily living;physical impairment Discharge Disposition still a patient Current Health Outpatient/Agency/Support Group Needs assisted living facility (specify);senior living facility (specify);[facility] acute care facility (specify);halfway (specify) Anticipated Changes Related to Illness none Living Environment Transportation Available family or friend will provide;ambulance;van, wheelchair accessible Activity/Self Care Review of Systems Equipment Currently Used at Home none Goal: Interdisciplinary Rounds/Family Conf Outcome: Ongoing (Interventions Implemented as Appropriate) 11/23/17 2134 Interdisciplinary Rounds/Family Conf Participants nursing;occupational therapy;physical therapy;physician;patient;social work/services;dietitian/nutrition services;geriatric case manager Problem: Skin Integrity Impairment, Risk/Actual (Adult) Goal: [...] Outcome: Ongoing (Interventions Implemented as Appropriate) 11/23/17 7059 Coping/Psychosocial Plan Of Care Reviewed With patient;caregiver;daughter;family;guardian;friend [...] Of Care Reviewed With patient;caregiver;sibling;durable power of regulatory attorney;guardian;family Plan of Care Review Progress progress [...] with a sitter all shift, and rn wound care from halfway at bedside. Patient extremely agitated all shift, [...] diagnosis and active problem list. RN and PHYS THER's state noskin issues at this time. Wound [...] Nutrition Promotion: rest periods promoted [facility] RN [facility] bed. [...] Please contact ANIKET ANDERS RN on pager [phone] or the wound care team at [phone] or pager [phone] with skin and wound care concerns or [...] VSS on RA, firing SIRs x1 this afternoon, notified - work up deferred. Does not tolerate masimo, sats stable w/ spot checks. Intermittently reporting pain to L hip, scheduled dilaudid given as ordered & bengay applied. Prn dilaudid given x2 w/ fair effect. 1x BMP obtained d/t Na <135 this a.m. (monitoring Na w/ desmopressin), [facility] review. Per MD, all 3 doses desmopressin given despite Na being <135. FR decreased to 2800cc, see I&O. Caregiver & sitter remain at bedside. Safety maintained. Will continue to karoline tor & notify MD of any changes. PLAN [...] Ongoing (Interventions Implemented as Appropriate) 11/17/17 0811/17/17 1900 Restraint Interventions Safety Promotion/Fall Prevention -- [...] Implemented as Appropriate) 11/05/17 0354 11/05/17 18111/17/17 1828 Discharge Needs Assessment Concerns To Be Addressed -- -- discharge planning concerns;coping/stress concerns;cognitive/perceptual concerns Readmission Within The Last 30 Days -- no previous admission in last 30 days -- Equipment Needed After Discharge (no specialty bed) -- -- Discharge Facility/Level Of Care Needs -- adult foster care/halfway -- Current Discharge Risk -- cognitively impaired;physical impairment -- Discharge Disposition -- still a patient -- Current Health Outpatient/Agency/Support Group Needs -- halfway (specify) -- Anticipated Changes Related to Illness [...] NOTE: OUTCOME SUMMARY: Pt alert, HR tachy, MD aware. Pt seemed more agitated today. We [...] GOAL OUTCOME EVALUATION: * Consult Note - aLtrice Rudolph RN - 11/15/2017 10:08 AM EDT [...] Facility/Level Of Care Needs -- adult foster care/halfway Current Discharge Risk -- cognitively impaired;physical impairment Discharge Disposition -- still a patient Current Health Outpatient/Agency/Support Group Needs -- halfway (specify) Anticipated Changes Related to Illness -- [...] cooperative today and receptive to this rn wound care. Sitter at bedside. PLAN MOVING FORWARD: Continue [...] Review Outcome: Ongoing (Interventions Implemented as Appropriate) 11/10/17200011/12/17 195 Coping/Psychosocial Plan Of Care Reviewed With -- [...] Mutuality Outcome: Ongoing (Interventions Implemented as Appropriate) 10/17/17174411/05/17 0354 Individualization Patient Specific Preferences -- sitter [...] Control Outcome: Ongoing (Interventions Implemented as Appropriate) 11/12/17 0811/12/171951 Coping Strategies Supportive Measures active listening utilized;self-care [...] Facility/Level Of Care Needs -- adult foster care/halfway Current Discharge Risk -- cognitively impaired;physical impairment Discharge Disposition -- still a patient Current Health Outpatient/Agency/Support Group Needs -- halfway (specify) Anticipated Changes Related to Illness -- [...] 2 assist and FWW Anticipated Discharge Disposition: senior living facility (could go to handicap accesible halfway with assistance) [facility] PTA Pager: [phone] Inpatient Physical Therapy 11/12/17 1040 Rehab Evaluation [...] no pain when asked) Bed Mobility Assessment/Treatment Acmjxj-fx-Slk Wilson (Bed Mobility) moderate assist (50% patient effort) Evj-vf-Vnrvas Wilson (Bed Mobility) minimum assist (75% patient effort) [...] walker was not available Transfer Assessment/Treatment Bed-Chair Wilson (Transfers) minimum assist (75% patient effort);2 person assist required Chair-Bed Wilson (Transfers) maximum assist (25% patient effort);2 person assist required Ytq-Nqaoz-Rxz Assistive Device (Transfers) rolling walker Wilson (Sit-Stand Transfers) minimum assist (75% patient effort);2 person assist required Wilson (Stand-Sit Transfers) minimum assist (75% patient effort);2 person assist required Mhg-Nngur-Bxe Assistive Device (Transfers) rolling walker Wilson (Toilet Transfers) minimum assist (75% patient effort) [...] placed in front of him Gait Assessment/Treatment Wilson (Gait) minimum assist (75% patient effort) Assistive [...] all bed mobility activities Bed Mobility Goal, Wilson Level moderate assist (50% patient effort) Bed Mobility Goal, Outcome Achieved goal ongoing Gait Training Goal Gait Training Goal, Date Established 09/09/17 Gait Training Goal, Time to Achieve by discharge Gait Training Goal, Wilson Level minimum assist (75% patient effort) Gait Training Goal, Assist Device walker, rolling Gait Training Goal, Distance to Achieve 15 ft Gait Training Goal, Outcome goal ongoing Transfer Training Goal Transfer Training Goal, Date Established 09/09/17 Transfer Training Goal, Time to Achieve by discharge Transfer Training Goal, Activity Type fjs-ou-mzgrf/svgbj-nl-avw;ilr-fg-eayfp/npoqi-ng-dwg Transfer Train Goal, Wilson Level minimum assist (75% patient effort) Transfer Training Goal, Assist Device walker, rolling Transfer Training Goal, Outcome goal ongoing Physical Therapy Goal PT Goal, Date Established 09/09/17 PT Goal, Time to Achieve by discharge PT Goal, Activity Type Pt will propel self in w/c household distances PT Goal, Wilson Level set up required;supervision required PT Goal, Outcome goal ongoing Clinical Impression Therapy Frequency 2-4 times/wk Anticipated Discharge Disposition senior living facility (could go to handicap accesible halfway with assistance) * Plan of Care - [...] Facility/Level Of Care Needs -- adult foster care/halfway Current Discharge Risk -- cognitively impaired;physical impairment Discharge Disposition -- still a patient Current Health Outpatient/Agency/Support Group Needs -- halfway (specify) Anticipated Changes Related to Illness -- [...] down around 2200 with a restful night. Incisions??DENTAL ASSISTING INSTRUCTOR and well-approximated/healed. Sitter??at bedside throughout shift. Patient [...] -- Current Health Outpatient/Agency/Support Group Needs -- halfway (specify) -- Anticipated Changes Related to Illness none -- -- Living Environment Transportation Available -- car (caregiver from halfway) -- Activity/Self Care Review of Systems Equipment Currently Used at Home -- none -- ? 10/03/17 1654 ? Discharge Needs Assessment ? Concerns To Be Addressed -- ? Readmission Within The Last 30 Days -- ? Equipment Needed After Discharge -- ? Discharge Facility/Level Of Care Needs adult foster care/halfway ? Current Discharge Risk -- ? Discharge [...] Of Care Reviewed With -- patient (rn wound care) Plan of Care Review Progress no change [...] Goal: Fall Prevention-Safe Patient Handling ? 10/03/17 0910/03/178 Restraint Interventions Safety Promotion/Fall Prevention [...] -- Current Health Outpatient/Agency/Support Group Needs -- halfway (specify) -- Anticipated Changes Related to Illness none -- -- Living Environment Transportation Available -- car (caregiver from halfway) -- Activity/Self Care Review of Systems Equipment Currently Used at Home -- none -- ? 10/03/17 1654 ? Discharge Needs Assessment ? Concerns To Be Addressed -- ? Readmission Within The Last 30 Days -- ? Equipment Needed After Discharge -- ? Discharge Facility/Level Of Care Needs adult foster care/halfway ? Current Discharge Risk -- ? Discharge [...] SUMMARY: Patient progressing at this time. VSS. Road Supervisor Of Engines at bedside continuously this shift. Urinary incontinence [...] self care tasks Anticipated Discharge Disposition: (P) senior living facility Pager: [phone] ZULMA Vargas 11/07/2017 Occupational Therapy Rehabilitation Department [...] time;needs repetition Bed Mobility Assessment/Treatment Roll Right Wilson (Bed Mobility) independent Transfer Assessment/Treatment Wilson (Sit-Stand Transfers) minimum assist (75% patient effort) Wilson (Stand-Sit Transfers) minimum assist (75% patient effort) Qcl-Hutea-Sid Assistive Device (Transfers) rolling walker Ccu-Lmjmg-Odf Assistive Device (Transfers) rolling walker Chair-Bed Wilson (Transfers) minimum assist (75% patient effort);verbal cues required Upper Body Dressing Assessment/Training Position (UB Dressing) supported sitting Wilson Level (UB Dressing) set up required Comment (UB Dressing) to trent kramer Lower Body Dressing Assessment/Training Position (LB Dressing) sitting;standing Wilson Level (LB Dressing) set up required Impairments (LB Dressing) balance impaired;vision impaired;pain;ROM (range of motion) decreased Comment (LB Dressing) to trent hall Grooming Assessment/Training Position (Grooming) supported sitting Wilson Level (Grooming) set up required Comment (Grooming) [...] wheelchair, commode, shower seat) Anticipated Discharge Disposition senior living facility * Plan of Care - Louis Doarn PTA - 11/07/2017 10:30 AM EDT Physical [...] transfers with 2 assist Anticipated Discharge Disposition: senior living facility (could go to handicap accesible halfway with assistance) [facility] PTA Pager: [phone] Inpatient Physical Therapy 11/07/17 1030 Rehab Evaluation [...] Assessment/Treatment Assistive Device (Bed Mobility) bed rails Gaxang-oj-Tjq Wilson (Bed Mobility) minimum assist (75% patient effort) Safety Issues (Bed Mobility) decreased use of legs for bridging/pushing Impairments (Bed Mobility) vision impaired Comment (Bed Mobility) HOB slightly elevated, extra time required Transfer Assessment/Treatment Bed-Chair Wilson (Transfers) moderate assist (50% patient effort);2 person assist required Chair-Bed Wilson (Transfers) moderate assist (50% patient effort);2 person assist required Yut-Hhhpt-Lvm Assistive Device (Transfers) (B hand hold) Wilson (Sit-Stand Transfers) minimum assist (75% patient effort);2 person assist required Wilson (Stand-Sit Transfers) minimum assist (75% patient effort);2 person assist required Ami-Jtewr-Dnk Assistive Device (Transfers) rolling walker Wilson (Toilet Transfers) moderate assist (50% patient effort);2 person assist required Assistive Device (Toilet Transfers) bedside commode;rolling walker Maintain Weight Bearing Status (Transfers) able to maintain weight bearing status Safety Issues (Transfers) balance decreased during turns;sequencing ability decreased;weight-shifting ability decreased;loses balance backward Impairments (Transfers) balance impaired;strength decreased;vision impaired Comment (Transfers) transferred from various surfaces, difficulty turning, poor eccentric control when sitting Gait Assessment/Treatment Wilson (Gait) minimum assist (75% patient effort);2 person [...] all bed mobility activities Bed Mobility Goal, Wilson Level moderate assist (50% patient effort) Bed Mobility Goal, Outcome Achieved goal ongoing Gait Training Goal Gait Training Goal, Date Established 09/09/17 Gait Training Goal, Time to Achieve by discharge Gait Training Goal, Wilson Level minimum assist (75% patient effort) Gait Training Goal, Assist Device walker, rolling Gait Training Goal, Distance to Achieve 15 ft Gait Training Goal, Outcome goal ongoing Transfer Training Goal Transfer Training Goal, Date Established 09/09/17 Transfer Training Goal, Time to Achieve by discharge Transfer Training Goal, Activity Type xvb-lo-lmzds/ellwy-wr-eew;tvg-wp-cdvvf/pdcnf-op-ntn Transfer Train Goal, Wilson Level minimum assist (75% patient effort) Transfer Training Goal, Assist Device walker, rolling Transfer Training Goal, Outcome goal ongoing Physical Therapy Goal PT Goal, Date Established 09/09/17 PT Goal, Time to Achieve by discharge PT Goal, Activity Type Pt will propel self in w/c household distances PT Goal, Wilson Level set up required;supervision required PT Goal, Outcome goal ongoing Clinical Impression Therapy Frequency 2-4 times/wk Anticipated Discharge Disposition senior living facility (could go to handicap accesible halfway with assistance) * Plan of Care - [...] -- Current Health Outpatient/Agency/Support Group Needs -- halfway (specify) -- Anticipated Changes Related to Illness none -- -- Living Environment Transportation Available -- car (caregiver from halfway) -- Activity/Self Care Review of Systems Equipment Currently Used at Home -- none -- ? 10/03/17 1654 ?? Discharge Needs Assessment ?? Concerns To Be Addressed -- ?? Readmission Within The Last 30 Days -- ?? Equipment Needed After Discharge -- ?? Discharge Facility/Level Of Care Needs adult foster care/halfway ?? Current Discharge Risk -- ?? Discharge [...] administered per order using FACES scale. Incision DENTAL ASSISTING INSTRUCTOR and well-approximated/healed. Sitter at bedside throughout shift. [...] Prevention-Safe Patient Handling ?? 10/03/17 0900 10/03/17 0176 Restraint Interventions Safety Promotion/Fall Prevention activity supervised;fall [...] -- Current Health Outpatient/Agency/Support Group Needs -- halfway (specify) -- Anticipated Changes Related to Illness none -- -- Living Environment Transportation Available -- car (caregiver from halfway) -- Activity/Self Care Review of Systems Equipment Currently Used at Home -- none -- ?? 10/03/17 9104 Discharge Needs Assessment Concerns To Be Addressed -- Readmission Within The Last 30 Days -- Equipment Needed After Discharge -- Discharge Facility/Level Of Care Needs adult foster care/halfway Current Discharge Risk -- Discharge Disposition -- [...] Facility/Level Of Care Needs -- adult foster care/halfway Current Discharge Risk -- cognitively impaired;physical impairment Discharge Disposition -- still a patient Current Health Outpatient/Agency/Support Group Needs -- halfway (specify) Anticipated Changes Related to Illness -- [...] Marcano at bedside, call morris within reach, rn wound care at bedside Patient-specific fall prevention interventions for [...] pivot with 2 assist Anticipated Discharge Disposition: senior living facility (could go to handicap accesible halfway with assistance) LOU[facility] DORAN PTA Pager: [phone] Inpatient Physical Therapy 11/05/17 1005 Rehab Evaluation [...] Assessment/Treatment Assistive Device (Bed Mobility) bed rails Qqjlet-qu-Uez Wilson (Bed Mobility) supervision required Comment (Bed Mobility) HOB elevated, steady in sitting Transfer Assessment/Treatment Bed-Chair Wilson (Transfers) minimum assist (75% patient effort);moderate assist (50% patienteffort);2 person assist required Chair-Bed Wilson (Transfers) minimum assist (75% patient effort);moderate assist (50% patienteffort);2 person assist required Ekr-Zlgnj-Dyt Assistive Device (Transfers) rolling walker Wilson (Sit-Stand Transfers) minimum assist (75% patient effort);2 person assist required Wilson (Stand-Sit Transfers) minimum assist (75% patient effort);2 person assist required Jrx-Kyypg-Xsm Assistive Device (Transfers) rolling walker Maintain Weight Bearing Status (Transfers) able to maintain weight bearing status Safety Issues (Transfers) balance decreased during turns;sequencing ability decreased;step length decreased;weight-shifting ability decreased Impairments (Transfers) balance impaired;strength decreased Comment (Transfers) Step by step cues provided, slightly unsteady and leaning toward the L in standing Gait Assessment/Treatment Wilson (Gait) minimum assist (75% patient effort);moderate assist [...] all bed mobility activities Bed Mobility Goal, Wilson Level moderate assist (50% patient effort) Bed Mobility Goal, Outcome Achieved goal ongoing Gait Training Goal Gait Training Goal, Date Established 09/09/17 Gait Training Goal, Time to Achieve by discharge Gait Training Goal, Wilson Level minimum assist (75% patient effort) Gait Training Goal, Assist Device walker, rolling Gait Training Goal, Distance to Achieve 15 ft Gait Training Goal, Outcome goal ongoing Transfer Training Goal Transfer Training Goal, Date Established 09/09/17 Transfer Training Goal, Time to Achieve by discharge Transfer Training Goal, Activity Type xvo-qo-xoerz/mjwoh-lk-vwl;pvi-ji-dlscu/bahmn-js-cve Transfer Train Goal, Wilson Level minimum assist (75% patient effort) Transfer Training Goal, Assist Device walker, rolling Transfer Training Goal, Outcome goal ongoing Physical Therapy Goal PT Goal, Date Established 09/09/17 PT Goal, Time to Achieve by discharge PT Goal, Activity Type Pt will propel self in w/c household distances PT Goal, Wilson Level set up required;supervision required PT Goal, [...] Discharge Facility/Level Of Care Needs adult foster care/halfway Current Discharge Risk cognitively impaired;physical impairment Discharge [...] clear yellow urine. Incision remains c/d/i and ZULMA. Will continue to monitor. PLAN MOVING FORWARD: [...] with assistance of 2. Anticipated Discharge Disposition: senior living facility, other (see comments) (vs. 27/01 assistance, PT/OT) Pager: [phone] SKYLA AYALA OT 11/04/2017 Occupational Therapy Rehabilitation [...] Mobility) bed rails (HOB slightly raised ) [place]-xj-Sip Wilson (Bed Mobility) minimum assist (75% patient effort);verbal cues required Impairments (Bed Mobility) pain;flexibility decreased (increased time, slow transition ) Comment (Bed Mobility) able to sit eob with supervision Roll Left Wilson (Bed Mobility) minimum assist (75% patient effort);verbal cues required (tactile cues ) Roll Right Wilson (Bed Mobility) minimum assist (75% patient effort);verbal cues required (tactile cues) Transfer Assessment/Treatment Wilson (Sit-Stand Transfers) minimum assist (75% patient effort);verbal cues required;contactguard assist (1-2, tactile cues) Wilson (Stand-Sit Transfers) moderate assist (50% patient effort);verbal cues required (as tries to sit prematurely before squared up) Impairments (Transfers) balance impaired;strength decreased;other (see comments) (restricted weight bearing, poor safety awareness) Comment (Transfers) pivoted from bed to w/c. Got up to w/c to head off floor with caregiver to get hair cut. Bed-Chair Wilson (Transfers) minimum assist (75% patient effort);verbal cues required;contactguard assist (1-2) Rla-Aread-Ofr Assistive Device (Transfers) rolling walker Upper Body Dressing Assessment/Training Position (UB Dressing) supported sitting (in w/c) Wilson Level (UB Dressing) set up required;verbal cues required;minimum assist (75% patient effort) Impairments (UB Dressing) balance impaired;other (see comments);vision impaired (orientating item, ) Comment (UB Dressing) help to orient shirt for Pt and Pt was able to don arms/head through and pulldown with prompts seated in w/c. Lower Body Dressing Assessment/Training Position (LB Dressing) supine Wilson Level (LB Dressing) set up required;verbal cues [...] of caregiver. Toileting Assessment/Training Position (Toileting) supine Wilson Level (Toileting) minimum assist (75% patient effort);set [...] commode, shower seat ) Anticipated Discharge Disposition senior living facility;other (see comments) (vs. 27/01 assistance, PT/OT) [...] Pt assisted to bedside commode during shift. Road Supervisor Of Engines at bedside. Will continue to monitor. PLAN [...] intermittently assisted to bedside commode during shift. Road Supervisor Of Engines at bedside. Will continue to monitor. PLAN MOVING FORWARD: Pain/spasm control Ongoing D/C planning INDIVIDUALIZED FALL PREVENTION INTERVENTIONS: Patient-specific fall risk factors per assessment: [current deficits]: Cognitive impairment, impaired mobility Assistance [level of assistance required for transfers and ambulation]: 1-2 assist Supervision [direct monitoring required during toileting and ADLs]: Hands on Surveillance [continuous indirect monitoring]: Road Supervisor Of Engines at bedside, hourly rounding, NKE CPG GOAL OUTCOME EVALUATION: * Plan of Care - Lsia Person RN - 11/02/2017 4:08 AM EDT [...] go outside with supervision from staff and head of english. Road Supervisor Of Engines at bedside throughout shift. Pt. Assisted to [...] OUTCOME EVALUATION: * Plan of Care - Cedric, Louis Corbin PTA - 10/31/2017 12:30 PM EDT Physical [...] with 1-2 assist, FWW Anticipated Discharge Disposition: senior living facility (could go to handicap accesible halfway with assistance) [facility] PTA Pager: [phone] Inpatient Physical Therapy 10/31/17 1230 Rehab Evaluation Document Type therapy note (daily note) Total Evaluation Minutes, Physical Therapy 30 (TE-F x 2) Patient Effort excellent Symptoms Noted During/After Treatment none General Information Patient/Family/Caregiver Comments/Observations Minimal yelling today, followed direction well Precautions/Restrictions fall Treatment Number PT 8 Pain Scale/Rating Pain Assessment Scale Faces (Roberson-Carter FACES Pain Rating Scale) Pain Level 0 Transfer Assessment/Treatment Wilson (Sit-Stand Transfers) minimum assist (75% patient effort) Wilson (Stand-Sit Transfers) moderate assist (50% patient effort) Yuc-Fhlvv-Jqy Assistive Device (Transfers) rolling walker (// bars) Maintain Weight Bearing Status (Transfers) able to maintain weight bearing status Safety Issues (Transfers) step length decreased;weight-shifting ability decreased Impairments (Transfers) strength decreased Comment (Transfers) Poor eccentric control when sitting Gait Assessment/Treatment Wilson (Gait) minimum assist (75% patient effort);2 person [...] all bed mobility activities Bed Mobility Goal, Wilson Level moderate assist (50% patient effort) Bed Mobility Goal, Outcome Achieved goal ongoing Gait Training Goal Gait Training Goal, Date Established 09/09/17 Gait Training Goal, Time to Achieve by discharge Gait Training Goal, Wilson Level minimum assist (75% patient effort) Gait Training Goal, Assist Device walker, rolling Gait Training Goal, Distance to Achieve 15 ft Gait Training Goal, Outcome goal ongoing Transfer Training Goal Transfer Training Goal, Date Established 09/09/17 Transfer Training Goal, Time to Achieve by discharge Transfer Training Goal, Activity Type vlt-og-npjjp/xehqr-or-ykf;frj-xp-mpscv/xdqtq-qz-kxg Transfer Train Goal, Wilson Level minimum assist (75% patient effort) Transfer Training Goal, Assist Device walker, rolling Transfer Training Goal, Outcome goal ongoing Physical Therapy Goal PT Goal, Date Established 09/09/17 PT Goal, Time to Achieve by discharge PT Goal, Activity Type Pt will propel self in w/c household distances PT Goal, Wilson Level set up required;supervision required PT Goal, [...] Ongoing (Interventions Implemented as Appropriate) 10/29/17 1441 10/29/172126 Coping/Psychosocial Plan Of Care Reviewed With -- patient Plan of Care Review Progress no change -- OUTCOME EVALUATION NOTE: OUTCOME SUMMARY: Patient alert, VSs stable. Pt very agitated through the night, incessantly screaming and moaning; slept only from approximately 2758-6505. MD made aware. Pt denied pain. Exhausted all [...] ADLs]: Hands on. Surveillance [continuous indirect monitoring]: stanley Marcano, GRABIEL sitter at bedside. Patient-specific fall prevention interventions [...] Handling Outcome: Ongoing (Interventions Implemented as Appropriate) 10/29/17 0910/29/172126 Restraint Interventions Safety Promotion/Fall Prevention -- activity [...] Of Care Needs -- -- adult foster care/halfway Current Discharge Risk -- cognitively impaired;physical impairment -- Discharge Disposition -- still a patient -- Current Health Outpatient/Agency/Support Group Needs -- halfway (specify) -- Anticipated Changes Related to Illness none -- -- Living Environment Transportation Available -- car (caregiver from halfway) -- Activity/Self Care Review of Systems Equipment [...] (Interventions Implemented as Appropriate) 10/24/17 0125 10/28/17 2200 Coping/Psychosocial Plan Of Care Reviewed With [...] (Interventions Implemented as Appropriate) 10/28/17 1248 10/28/17 220 Restraint Interventions Safety Promotion/Fall Prevention -- activity [...] Control Outcome: Ongoing (Interventions Implemented as Appropriate) 10/28/172199 Coping Strategies Supportive Measures active listening utilized;goal [...] Of Care Needs -- -- adult foster care/halfway Current Discharge Risk -- cognitively impaired;physical impairment -- Discharge Disposition -- still a patient -- Current Health Outpatient/Agency/Support Group Needs -- halfway (specify) -- Anticipated Changes Related to Illness none -- -- Living Environment Transportation Available -- car (caregiver from halfway) -- Activity/Self Care Review of Systems Equipment [...] Ongoing (Interventions Implemented as Appropriate) 10/24/17 01210/27/17 2148 Coping/Psychosocial Plan Of Care Reviewed With -- patient Plan of Care Review Progress no change -- OUTCOME EVALUATION NOTE: OUTCOME SUMMARY: Pt was alert throughout shift, caregiver at side and active in patient care. Patients pain adequately controlled, PRN ativan given for agitation, see MAR for medications given. Pt went around facility w/ caregiver and PHYS THER in wheelchair. Less than 2000ml given throughout day. See Doc Flowsheet for details. Incontinence care given post urine and stool occurrence. Will continue to monitor and help patient reach d/c goals. PLAN MOVING FORWARD: Pain control Mobilize out of bed. D/c planning INDIVIDUALIZED FALL PREVENTION: Patient is currently a high risk to Fall. behavioral medical director at bedside or one-to-one monitoring in place [...] Of Care Needs -- -- adult foster care/halfway Current Discharge Risk -- cognitively impaired;physical impairment -- Discharge Disposition -- still a patient -- Current Health Outpatient/Agency/Support Group Needs -- halfway (specify) -- Anticipated Changes Related to Illness none -- -- Living Environment Transportation Available -- car (caregiver from halfway) -- Activity/Self Care Review of Systems Equipment [...] Review Outcome: Ongoing (Interventions Implemented as Appropriate) 10/24/175 10/27/17 2149 Coping/Psychosocial Plan Of Care Reviewed [...] monitoring]: Masimo, purposeful rounding, NKE, sitter at bedside Patient-specific [...] Of Care Needs -- -- adult foster care/halfway Current Discharge Risk -- cognitively impaired;physical impairment -- Discharge Disposition -- still a patient -- Current Health Outpatient/Agency/Support Group Needs -- halfway (specify) -- Anticipated Changes Related to Illness none -- -- Living Environment Transportation Available -- car (caregiver from halfway) -- Activity/Self Care Review of Systems Equipment [...] (Interventions Implemented as Appropriate) 10/24/17 0125 10/26/17 2136 Coping/Psychosocial Plan Of Care Reviewed With -- patient;other (see comments) (PHYS THER/sitter) Plan of Care Review Progress no change [...] ADLs]: Hands on Surveillance [continuous indirect monitoring]: stanley Marcano, GRABIEL sitter Patient-specific fall prevention interventions for sensory [...] Of Care Needs -- -- adult foster care/halfway Current Discharge Risk -- cognitively impaired;physical impairment -- Discharge Disposition -- still a patient -- Current Health Outpatient/Agency/Support Group Needs -- halfway (specify) -- Anticipated Changes Related to Illness none -- -- Living Environment Transportation Available -- car (caregiver from halfway) -- Activity/Self Care Review of Systems Equipment [...] wheelchair for about an hour with rn wound care. Remains incontinent. behavioral medical director at bedside.Will continue to monitor. PLAN MOVING [...] History: Procedure Laterality Date ??? PRO OPEN ATHLETIC EQUIPMENT MANAGER FIX ACETABULAR FX Left 09/04/2017 @OPEN TREATMENT, ACETABULAR FX (WRVU 25.41) performed by Amy Lance MD at [facility] MAIN OR Patient has following SCHEDULED [...] self care tasks Anticipated Discharge Disposition: (P) senior living facility Pager: [phone] ZULMA Vargas 10/27/2017 Occupational Therapy Rehabilitation Department [...] Scale) Pain Level 5 Bed Mobility Assessment/Treatment Npswcr-xg-Ibk Wilson (Bed Mobility) verbal cues required (extended time) Transfer Assessment/Treatment Wilson (Sit-Stand Transfers) contact guard assist Wilson (Stand-Sit Transfers) contact guard assist Zbh-Ayypm-Qrc Assistive Device (Transfers) rolling walker Bed-Chair Wilson (Transfers) minimum assist (75% patient effort);verbal cues required Wheelchair Training/Management Transfer Type (Wheelchair) stand pivot transfer Propulsion Training (Wheelchair) forward propulsion Distance Propelled in Feet (Wheelchair) 50ft Lower Body Dressing Assessment/Training Position (LB Dressing) sitting (supine in bed) Wilson Level (LB Dressing) conditional independence Impairments (LB [...] Therapy Frequency 2-4 times/wk Anticipated Discharge Disposition senior living facility * Med Student Progress Note - [...] Care: FULL CODE Team Pager( Coverage 27/01): #[phone] PCP: NAKIA Cifuentes [phone] Bonnie Velásquez 10/25/2017 Pager [phone] * Plan of Care - Ren Walters [...] Session focussed on dressing activities, transferring to wc and play activities out of the room. [...] all self care tasks Anticipated Discharge Disposition: senior living facility Pager: [phone] ZULMA Vargas 10/25/2017 Occupational Therapy Rehabilitation Department 10/24/17 1437 Rehab Evaluation Document Type therapy note (daily [...] time;needs cueing;needs increased time;needs repetition Transfer Assessment/Treatment Wilson (Sit-Stand Transfers) contact guard assist Wilson (Stand-Sit Transfers) contact guard assist Comment (Transfers) pt did well maintaining his precautions Bed-Chair Wilson (Transfers) minimum assist (75% patient effort) Xgp-Zbltz-Ufd Assistive Device (Transfers) rolling walker Chair-Bed Wilson (Transfers) minimum assist (75% patient effort) Lower Body Dressing Assessment/Training Position (LB Dressing) sitting Wilson Level (LB Dressing) set up required Impairments (LB Dressing) vision impaired Comment (LB Dressing) to don pants Toileting Assessment/Training Position (Toileting) sitting (EOB) Wilson Level (Toileting) set up required Comment (Toileting) [...] Care: FULL CODE Team Pager(MD Coverage 27/01): #[phone] PCP: NAKIA Cifuentes [phone] Bonnie Velásquez 10/24/2017 Pager [phone] * Plan of Care - Lenore Yates [...] Care: FULL CODE Team Pager( Coverage 27/01): #[phone] PCP: NAKIA Cifuentes [phone] Bonnie Velásquez 10/23/2017 Pager [phone] * Plan of Care - Lenore Yates [...] Medicated with dilaudid 4mg powith good effect. shower attendant in room with patient this shift. 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, cognitively impaired,immobility Assistance [level of assistance required for transfers and ambulation]: Dependent Supervision [direct monitoring required during toileting and ADLs]: Dependent Surveillance [continuous indirect monitoring]: Masimo, call morris in reach, purposeful rounding, safety trainer Patient-specific fall prevention interventions for sensory deficits [...] pivot transfer 1-2 assist Anticipated Discharge Disposition: senior living facility (could go to handicap accesible halfway with assistance) LOU[facility] DORAN PTA Pager: [phone] Inpatient Physical Therapy 10/22/17 1110 Rehab Evaluation [...] Living Environment Comment Pt lives in a halfway with 3 other roomates. The creative assistant of the halfway reports that they have a caregiver there [...] a good distraction from patient. At the halfway he tends to wear jeans with no shirt as he tries to rip them off. He is able to communicate intermittently with verbal words. the caregivers help shower anddress him daily. Pain Scale/Rating Pain Assessment Scale Word (verbal rating pain scale) Pain Level (pt reported no pain when asked) Bed Mobility Assessment/Treatment Xexakr-ka-Avc Wilson (Bed Mobility) minimum assist (75% patient effort) Comment (Bed Mobility) Able to sit edge of bed with supervision Transfer Assessment/Treatment Bed-Chair Wilson (Transfers) maximum assist (25% patient effort) Tgz-Xgucg-Cox Assistive Device (Transfers) rolling walker Wilson (Sit-Stand Transfers) contact guard assist;minimum assist (75% patient effort) Wilson (Stand-Sit Transfers) contact guard assist Joh-Nnmei-Cpe Assistive Device (Transfers) (// bars) Wilson (Toilet Transfers) maximum assist (25% patient effort) [...] unsteady, sits early at times Gait Assessment/Treatment Wilson (Gait) minimum assist (75% patient effort) Assistive [...] all bed mobility activities Bed Mobility Goal, Wilson Level moderate assist (50% patient effort) Bed Mobility Goal, Outcome Achieved goal ongoing Gait Training Goal Gait Training Goal, Date Established 09/09/17 Gait Training Goal, Time to Achieve by discharge Gait Training Goal, Wilson Level minimum assist (75% patient effort) Gait Training Goal, Assist Device walker, rolling Gait Training Goal, Distance to Achieve 15 ft Gait Training Goal, Outcome goal ongoing Transfer Training Goal Transfer Training Goal, Date Established 09/09/17 Transfer Training Goal, Time to Achieve by discharge Transfer Training Goal, Activity Type vaj-ph-obfns/vumdx-cf-lmg;vzt-fh-ejril/ydjmv-aa-fbd Transfer Train Goal, Wilson Level minimum assist (75% patient effort) Transfer Training Goal, Assist Device walker, rolling Transfer Training Goal, Outcome goal ongoing Physical Therapy Goal PT Goal, Date Established 09/09/17 PT Goal, Time to Achieve by discharge PT Goal, Activity Type Pt will propel self in w/c household distances PT Goal, Wilson Level set up required;supervision required PT Goal, Outcome goal ongoing Clinical Impression Therapy Frequency 2-4 times/wk Anticipated Discharge Disposition [facility] living facility [facility] * Med Student Progress [...] Care: FULL CODE Team Pager(MD Coverage 27/01): #[phone] PCP: NAKIA Cifuentes [phone] Bonnie Velásquez 10/22/2017 Pager [phone] * Plan of Care - Elsy Mei [...] Of Care Needs -- -- adult foster care/halfway Current Discharge Risk -- cognitively impaired;physical impairment -- Discharge Disposition -- still a patient -- Current Health Outpatient/Agency/Support Group Needs -- halfway (specify) -- Anticipated Changes Related to Illness none -- -- Living Environment Transportation Available -- car (caregiver from halfway) -- Activity/Self Care Review of Systems Equipment [...] self care tasks Anticipated Discharge Disposition: (P) senior living facility Pager: [phone] ZULMA Vargas 10/21/2017 Occupational Therapy Rehabilitation Department [...] Scale) Pain Level 0 Bed Mobility Assessment/Treatment Gfpmlr-nd-Ynp Wilson (Bed Mobility) minimum assist (75% patient effort);verbal cues required Cvh-ly-Gmaily Wilson (Bed Mobility) minimum assist (75% patient effort);verbal cues required Comment (Bed Mobility) difficult arousing pt Clinical Impression Criteria for Skilled Therapeutic Interventions Met yes;treatment indicated Rehab Potential fair, will monitor progress closely Therapy Frequency 2-4 times/wk Anticipated Discharge Disposition senior living facility * Plan of Care - Lenore [...] OUTCOME EVALUATION: * Consult Note - Kris Gilbert DMD - 10/21/2017 2:32 PM EDT Dental [...] consult regarding this case. Kris Gilbert DMD [phone] * Med Student Progress Note - Bonnie [...] Care: FULL CODE Team Pager( Coverage 27/01): #[phone] PCP: NAKIA Cifuentes [phone] Bonnie Velásquez 10/21/2017 Pager [phone] * Plan of Care - Elsy Mie RN - 10/21/2017 5:03 AM EDT Problem: [...] Ongoing (Interventions Implemented as Appropriate) 10/20/17 0900 10/20/17209910/21/17 0000 Restraint Interventions Safety Promotion/Fall Prevention -- [...] Control Outcome: Ongoing (Interventions Implemented as Appropriate) 10/20/17209910/21/17 0000 Coping Strategies Supportive Measures active listening [...] Of Care Needs -- -- adult foster care/halfway Current Discharge Risk -- cognitively impaired;physical impairment -- Discharge Disposition -- still a patient -- Current Health Outpatient/Agency/Support Group Needs -- halfway (specify) -- Anticipated Changes Related to Illness none -- -- Living Environment Transportation Available -- car (caregiver from halfway) -- Activity/Self Care Review of Systems Equipment [...] Med Student Progress Note - Robertomandie Bonnie Emerald - 10/20/2017 9:09 AM EDT Hospital [...] Care: FULL CODE Team Pager( Coverage 27/01): #[phone] PCP: NAKIA Cifuentes [phone] Bonnie Velásquez 10/20/2017 Pager [phone] * Plan of Care - Dinorah Tate RN - 10/20/2017 2:49 AM EDT Problem: Patient Care Overview Goal: Plan of Care Review Outcome: Ongoing (Interventions Implemented as Appropriate) 10/19/172099 Coping/Psychosocial Plan Of Care Reviewed With patient [...] toward outcome * Plan of Care - Footit, Judie C, RN - 10/19/2017 4:09 PM EDT Problem: Patient Care Overview Goal: Plan of Care Review Outcome: Ongoing (Interventions Implemented as Appropriate) 10/19/17 0610/19/17 0830 Coping/Psychosocial Plan Of Care Reviewed With [...] Mutuality Outcome: Ongoing (Interventions Implemented as Appropriate) 10/17/17174410/19/17607 Individualization Patient Specific Preferences -- cluster care [...] (Interventions Implemented as Appropriate) 10/19/17 0610/19/17 08 Restraint Interventions Safety Promotion/Fall Prevention -- activity [...] Of Care Needs -- -- adult foster care/halfway Current Discharge Risk -- cognitively impaired;physical impairment -- Discharge Disposition -- still a patient -- Current Health Outpatient/Agency/Support Group Needs -- halfway (specify) -- Anticipated Changes Related to Illness none -- -- Living Environment Transportation Available -- car (caregiver from halfway) -- Activity/Self Care Review of Systems Equipment [...] Appropriate) 10/10/17 1735 Interdisciplinary Rounds/Family Conf Participants family;nursing;patient;physician;geriatric case manager (caregiver) Problem: Skin Integrity Impairment, Risk/Actual (Adult) [...] Of Care Needs -- -- adult foster care/halfway Current Discharge Risk -- cognitively impaired;physical impairment -- Discharge Disposition -- still a patient -- Current Health Outpatient/Agency/Support Group Needs -- halfway (specify) -- Anticipated Changes Related to Illness none -- -- Living Environment Transportation Available -- car (caregiver from halfway) -- Activity/Self Care Review of Systems Equipment [...] 3200 ml fluid restriction. Patient had rn wound care [id number] today. Patients pain treated with scheduled and [...] Care: FULL CODE Team Pager( Coverage 27/01): #[phone] PCP: NAKIA Cifuentes [phone] Bonnie Velásquez 10/18/2017 Pager [phone] * Plan of Care - Alanna Paulino, RN - 10/17/2017 5:52 PM EDT Problem: [...] Handling Outcome: Ongoing (Interventions Implemented as Appropriate) 10/17/17 0949 10/17/171744 Restraint Interventions Safety Promotion/Fall Prevention activity supervised;fall [...] Control Outcome: Ongoing (Interventions Implemented as Appropriate) 10/17/17 0949 10/17/17 174 Coping Strategies Supportive Measures -- active listening utilized;self-care encouraged;verbalization of feelings encouraged Safety Interventions Isolation Precautions standard precautions maintained -- Infection Prevention environmental surveillance performed;rest/sleep promoted;single patient room provided -- Problem: Skin Integrity Impairment, Risk/Actual (Adult) Goal: Skin Integrity/Wound Healing Patient will demonstrate the desired outcomes by discharge/transition of care. Outcome: Ongoing (Interventions Implemented as Appropriate) 10/17/171744 Skin Integrity Impairment, Risk/Actual (Adult) Skin Integrity/Wound [...] Care: FULL CODE Team Pager(MD Coverage 27/01): #[phone] PCP: NAKIA Cifuentes [phone] Bonnie Velásquez 10/17/2017 Pager [phone] * Plan of Care - Landy Benitez [...] Care: FULL CODE Team Pager(MD Coverage 27/01): #[phone] PCP: NAKIA Cifuentes [phone] Bonnie Velásquez 10/16/2017 Pager [phone] * Plan of Care - Landy Benitez [...] Care: FULL CODE Team Pager(MD Coverage 27/01): #[phone] PCP: NAKIA Cifuentes [phone] Bonnie Velásquez 10/15/2017 Pager [phone] * Plan of Care - Lori Ordaz [...] Care: FULL CODE Team Pager(MD Coverage 27/01): #[phone] PCP: NAKIA Cifuentes [phone] Bonnie Velásquez 10/14/2017 Pager [phone] * Plan of Care - Lori Ordaz [...] self care tasks Anticipated Discharge Disposition: (P) senior living facility Pager: [phone] ZULMA Vargas 10/14/2017 Occupational Therapy Rehabilitation Department [...] Assessment/Treatment Assistive Device (Bed Mobility) bed rails Cdyasd-bj-Nje Wilson (Bed Mobility) minimum assist (75% patient effort);verbal cues required Quc-jm-Llbmtq Wilson (Bed Mobility) supervision required;verbal cues required Impairments (Bed Mobility) pain;flexibility decreased Comment (Bed Mobility) extended time required Transfer Assessment/Treatment Wilson (Sit-Stand Transfers) moderate assist (50% patient effort) Wilson (Stand-Sit Transfers) moderate assist (50% patient effort) Impairments (Transfers) flexibility decreased;strength decreased Comment (Transfers) pt able to show which leg is non-weight bearing but unable to maintain it today Bed-Chair Wilson (Transfers) maximum assist (25% patient effort);verbal cues required Cwy-Njakh-Ecr Assistive Device (Transfers) rolling walker Chair-Bed Wilson (Transfers) maximum assist (25% patient effort);verbal cues required Gait Assessment/Treatment Wilson (Gait) minimum assist (75% patient effort) Distance in Feet (Gait) 3ft Maintain Weight Bearing Status (Gait) cues to maintain weight bearing status;assist to maintain weight bearing status;unable to maintain weight bearing status Lower Body Dressing Assessment/Training Position (LB Dressing) (supine in bed) Wilson Level (LB Dressing) minimum assist (75% patient effort) Impairments (LB Dressing) vision impaired;flexibility decreased Comment (LB Dressing) to don pants, min A to thread L feet in Grooming Assessment/Training Position (Grooming) sitting (in WC) Wilson Level (Grooming) set up required;verbal cues required [...] Therapy Frequency 2-4 times/wk Anticipated Discharge Disposition senior living facility * Plan of Care - [place] [...] -- Current Health Outpatient/Agency/Support Group Needs -- halfway (specify) -- Anticipated Changes Related to Illness none -- -- Living Environment Transportation Available -- car (caregiver from halfway) -- Activity/Self Care Review of Systems Equipment Currently Used at Home -- none -- 10/03/17 1654 Discharge Needs Assessment Concerns To Be Addressed -- Readmission Within The Last 30 Days -- Equipment Needed After Discharge -- Discharge Facility/Level Of Care Needs adult foster care/halfway Current Discharge Risk -- Discharge Disposition -- Current Health Outpatient/Agency/Support Group Needs -- Anticipated Changes Related to Illness -- Living Environment Transportation Available -- Activity/Self Care Review of Systems Equipment Currently Used at Home -- Goal: Interdisciplinary Rounds/Family Conf 10/10/17 1735 Interdisciplinary Rounds/Family Conf Participants family;nursing;patient;physician;geriatric case manager (caregiver) Problem: Skin Integrity Impairment, Risk/Actual (Adult) [...] -- Current Health Outpatient/Agency/Support Group Needs -- halfway (specify) -- Anticipated Changes Related to Illness none -- -- Living Environment Transportation Available -- car (caregiver from halfway) -- Activity/Self Care Review of Systems Equipment Currently Used at Home -- none -- 10/03/17 1654 Discharge Needs Assessment Concerns To Be Addressed -- Readmission Within The Last 30 Days -- Equipment Needed After Discharge -- Discharge Facility/Level Of Care Needs adult foster care/halfway Current Discharge Risk -- Discharge Disposition -- Current Health Outpatient/Agency/Support Group Needs -- Anticipated Changes Related to Illness -- Living Environment Transportation Available -- Activity/Self Care Review of Systems Equipment Currently Used at Home -- Goal: Interdisciplinary Rounds/Family Conf 10/10/17 9955 Interdisciplinary Rounds/Family Conf Participants family;nursing;patient;physician;geriatric case manager (caregiver) Problem: Skin Integrity Impairment, Risk/Actual (Adult) [...] at this time. Will continue to monitor. 184 Pt. Ate multiple snacks throughout the afternoon. PRN ativan and haldol given (see SEP) for agitation with no effect. Caregiver remains [...] Ongoing (Interventions Implemented as Appropriate) 10/08/17 1805 10/08/17 1847 Coping/Psychosocial Plan Of Care Reviewed With [...] Surveillance [continuous indirect monitoring]: Jeet Purposeful Rounding, NKEmerald Patient-specific fall prevention interventions for sensory deficits [...] care. Outcome: Ongoing (Interventions Implemented as Appropriate) 10/08/17 1805 Skin Integrity Impairment, Risk/Actual (Adult) Skin Integrity/Wound Healing making progress toward outcome * Plan of Care - Mukul Beaulieu RN - 10/08/2017 3:21 AM EDT Problem: Patient Care Overview Goal: Plan of Care Review Outcome: Ongoing (Interventions Implemented as Appropriate) 10/07/17 1708 10/07/17 2112 Coping/Psychosocial Plan Of Care Reviewed With -- [...] Ongoing (Interventions Implemented as Appropriate) 10/07/17 1708 Coping/Psychosocial Plan Of Care Reviewed With patient Plan of Care Review Progress no change OUTCOME EVALUATION NOTE: OUTCOME SUMMARY: Patient tolerating PO diet. Patient incontinent of urine throughout the day. Bed alarm on to help maintain patient safety. behavioral medical director at bedside throughout the shift. Will continue [...] Outcome: Ongoing (Interventions Implemented as Appropriate) 10/07/17 170 Mutuality/Individual Preferences What Anxieties, Fears or Concerns Do You Have About Your Health or Care? ISHAAN What Questions Do You Have About Your Health or Care? ISHANA What Information Would Help Us Give You More Personalized Care? ISHAAN Goal: Fall Prevention-Safe Patient Handling Outcome: Ongoing (Interventions Implemented as Appropriate) 10/07/17 110 Restraint Interventions Safety Promotion/Fall Prevention activity supervised;fall [...] Outcome: Ongoing (Interventions Implemented as Appropriate) 10/07/17 110 Safety Interventions Isolation Precautions standard precautions maintained Infection Prevention environmental surveillance performed;rest/sleep promoted;single patient room provided Coping Strategies Supportive Measures relaxation techniques promoted;verbalization of feelings encouraged Goal: Interdisciplinary Rounds/Family Conf Outcome: Ongoing (Interventions Implemented as Appropriate) 10/07/17 170 Interdisciplinary Rounds/Family Conf Participants patient;nursing Problem: Skin Integrity Impairment, Risk/Actual (Adult) Goal: Skin Integrity/Wound Healing Patient will demonstrate the desired outcomes by discharge/transition of care. Outcome: Ongoing (Interventions Implemented as Appropriate) 10/07/17 170 Skin Integrity Impairment, Risk/Actual (Adult) Skin Integrity/Wound [...] -- Current Health Outpatient/Agency/Support Group Needs -- halfway (specify) -- Anticipated Changes Related to Illness none -- -- Living Environment Transportation Available -- car (caregiver from halfway) -- Activity/Self Care Review of Systems Equipment Currently Used at Home -- none -- 10/03/17 1654 Discharge Needs Assessment Concerns To Be Addressed -- Readmission Within The Last 30 Days -- Equipment Needed After Discharge -- Discharge Facility/Level Of Care Needs adult foster care/halfway Current Discharge Risk -- Discharge Disposition -- [...] -- Current Health Outpatient/Agency/Support Group Needs -- halfway (specify) -- Anticipated Changes Related to Illness none -- -- Living Environment Transportation Available -- car (caregiver from halfway) -- Activity/Self Care Review of Systems Equipment Currently Used at Home -- none -- 10/03/17 1654 Discharge Needs Assessment Concerns To Be Addressed -- Readmission Within The Last 30 Days -- Equipment Needed After Discharge -- Discharge Facility/Level Of Care Needs adult foster care/halfway Current Discharge Risk -- Discharge Disposition -- [...] -- Current Health Outpatient/Agency/Support Group Needs -- halfway (specify) -- Anticipated Changes Related to Illness none -- -- Living Environment Transportation Available -- car (caregiver from halfway) -- Activity/Self Care Review of Systems Equipment Currently Used at Home -- none -- 10/03/17 1654 Discharge Needs Assessment Concerns To Be Addressed -- Readmission Within The Last 30 Days -- Equipment Needed After Discharge -- Discharge Facility/Level Of Care Needs adult foster care/halfway Current Discharge Risk -- Discharge Disposition -- [...] -- Current Health Outpatient/Agency/Support Group Needs -- halfway (specify) -- Anticipated Changes Related to Illness none -- -- Living Environment Transportation Available -- car (caregiver from halfway) -- Activity/Self Care Review of Systems Equipment Currently Used at Home -- none -- 10/03/17 1654 Discharge Needs Assessment Concerns To Be Addressed -- Readmission Within The Last 30 Days -- Equipment Needed After Discharge -- Discharge Facility/Level Of Care Needs adult foster care/halfway Current Discharge Risk -- Discharge Disposition -- [...] -- Current Health Outpatient/Agency/Support Group Needs -- halfway (specify) -- Anticipated Changes Related to Illness none -- -- Living Environment Transportation Available -- car (caregiver from halfway) -- Activity/Self Care Review of Systems Equipment Currently Used at Home -- none -- 10/03/17 1654 Discharge Needs Assessment Concerns To Be Addressed -- Readmission Within The Last 30 Days -- Equipment Needed After Discharge -- Discharge Facility/Level Of Care Needs adult foster care/halfway Current Discharge Risk -- Discharge Disposition -- [...] self care tasks Anticipated Discharge Disposition: (P) senior living facility Pager: [phone] ZULMA Vargas 10/04/2017 Occupational Therapy Rehabilitation Department [...] repetition Pain Scale/Rating Pain Assessment Scale Faces (Roberson-Crater FACES Pain Rating Scale) Pain Level 7 Weight-Bearing Status Extremity Weight Bearing Status left lower extremity Bed Mobility Assessment/Treatment Hzh-pz-Vigbes Wilson (Bed Mobility) minimum assist (75% patient effort);verbal cues required Impairments (Bed Mobility) pain;ROM (range of motion) decreased Transfer Assessment/Treatment Wilson (Sit-Stand Transfers) moderate assist (50% patient effort);verbal cues required Comment (Transfers) Pt able to maintain WB precautions Dhi-Vpwoi-Vrq Assistive Device (Transfers) rolling walker Chair-Bed Wilson (Transfers) moderate assist (50% patient effort);verbal cues [...] Therapy Frequency 2-4 times/wk Anticipated Discharge Disposition senior living facility * Plan of Care - [place] [...] Sister at bedside all night. 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 Will continue to monitor and [...] -- Current Health Outpatient/Agency/Support Group Needs -- halfway (specify) -- Anticipated Changes Related to Illness none -- -- Living Environment Transportation Available -- car (caregiver from halfway) -- Activity/Self Care Review of Systems Equipment [...] bed/chair alarm, demonstrates proper use of call omrris and verbalizes understanding of fall preventions implemented. [...] -- Current Health Outpatient/Agency/Support Group Needs -- halfway (specify) -- Anticipated Changes Related to Illness none -- -- Living Environment Transportation Available -- car (caregiver from halfway) -- Activity/Self Care Review of Systems Equipment [...] Ongoing (Interventions Implemented as Appropriate) 10/01/17 1816 10/01/172029 Coping/Psychosocial Plan Of Care Reviewed With -- [...] Ongoing (Interventions Implemented as Appropriate) 09/25/17 2116 09/30/17 2300 10/01/17 0900 Restraint Interventions Safety Promotion/Fall [...] Outcome: Ongoing (Interventions Implemented as Appropriate) 09/30/17 230 Safety Interventions Isolation Precautions standard precautions maintained [...] -- Current Health Outpatient/Agency/Support Group Needs -- halfway (specify) -- Anticipated Changes Related to Illness [...] EVALUATION: ongoing Goal: Individualization & Mutuality 09/18/17 12509/29/171938 Individualization Patient Specific Preferences -- apple juice [...] Outcome: Ongoing (Interventions Implemented as Appropriate) 09/29/17 103 Safety Interventions Isolation Precautions standard [...] -- Current Health Outpatient/Agency/Support Group Needs -- halfway (specify) -- Anticipated Changes Related to Illness none -- -- Activity/Self Care Review of Systems Equipment Currently Used at Home -- none -- Goal: Interdisciplinary Rounds/Family Conf Outcome: Ongoing (Interventions Implemented as Appropriate) 09/29/171938 Interdisciplinary Rounds/Family Conf Participants patient;nursing Problem: Skin [...] assist and FWW LOUIS DORAN PTA Pager: [phone] Inpatient Physical Therapy 09/30/17 1110 Rehab Evaluation [...] Rating Scale) Pain Level 2 Transfer Assessment/Treatment Wilson (Sit-Stand Transfers) moderate assist (50% patient effort);2 person assist required Wilson (Stand-Sit Transfers) moderate assist (50% patient effort);2 person assist required Wca-Extdx-Qcd Assistive Device (Transfers) rolling walker Wilson (Toilet Transfers) moderate assist (50% patient effort);2 person assist required Assistive Device (Toilet Transfers) bedside commode;rolling walker Maintain Weight Bearing Status (Transfers) cues to maintain weight bearing status Safety Issues (Transfers) balance decreased during turns;sequencing ability decreased Impairments (Transfers) balance impaired;postural control impaired;strength decreased;vision impaired Comment (Transfers) stand step transfer to and from commode and w/c, frequent cues provided Gait Assessment/Treatment Wilson (Gait) minimum assist (75% patient effort);2 person [...] all bed mobility activities Bed Mobility Goal, Wilson Level moderate assist (50% patient effort) Bed Mobility Goal, Outcome Achieved goal ongoing Gait Training Goal Gait Training Goal, Date Established 09/09/17 Gait Training Goal, Time to Achieve by discharge Gait Training Goal, Wilson Level minimum assist (75% patient effort) Gait Training Goal, Assist Device walker, rolling Gait Training Goal, Distance to Achieve 15 ft Gait Training Goal, Outcome goal ongoing Transfer Training Goal Transfer Training Goal, Date Established 09/09/17 Transfer Training Goal, Time to Achieve by discharge Transfer Training Goal, Activity Type efa-rl-klkur/gerip-dn-pkg;jvw-pg-vkhok/yiiok-sc-wei Transfer Train Goal, Wilson Level minimum assist (75% patient effort) Transfer Training Goal, Assist Device walker, rolling Transfer Training Goal, Outcome goal ongoing Physical Therapy Goal PT Goal, Date Established 09/09/17 PT Goal, Time to Achieve by discharge PT Goal, Activity Type Pt will propel self in w/c household distances PT Goal, Wilson Level set up required;supervision required PT Goal, Outcome goal ongoing Clinical Impression Therapy Frequency 2-4 times/wk Anticipated Equipment Needs at Discharge front wheeled walker Anticipated Discharge Disposition senior living facility (could go to handicap accesible halfway with assistance) * Plan of Care - Skyler Aviles RN - 09/30/2017 4:07 AM EDT Problem: Patient Care Overview Goal: Plan of Care Review 09/29/17 1939 09/29/17 5502 Coping/Psychosocial Plan Of Care Reviewed With -- [...] Individualization & Mutuality 09/07/17 0504 09/18/17 1253 09/29/17 1939 Individualization [...] -- Goal: Fall Prevention-Safe Patient Handling 09/25/17211509/29/17 1039 09/29/17 2300 Restraint Interventions Safety Promotion/Fall Prevention -- [...] -- -- High Goal: Infection Control 09/29/17 1039 [...] -- Current Health Outpatient/Agency/Support Group Needs -- halfway (specify) -- Anticipated Changes Related to Illness none -- -- Living Environment Transportation Available -- car (caregiver from halfway) -- Activity/Self Care Review of Systems Equipment [...] all self care tasks Anticipated Discharge Disposition: senior living facility Pager: [phone] ZULMA Vargas 09/30/2017 Occupational Therapy Rehabilitation Department [...] Bearing Status left lower extremity Transfer Assessment/Treatment Wilson (Sit-Stand Transfers) moderate assist (50% patient effort);2 person assist required Wilson (Stand-Sit Transfers) moderate assist (50% patient effort);2 person assist required Chair-Bed Wilson (Transfers) maximum assist (25% patient effort);2 person assist required Grooming Assessment/Training Position (Grooming) sitting (in chair at sink) Wilson Level (Grooming) set up required;verbal cues required [...] -- Current Health Outpatient/Agency/Support Group Needs -- halfway (specify) -- Anticipated Changes Related to Illness none -- -- Living Environment Transportation Available -- car (caregiver from halfway) -- Activity/Self Care Review of Systems Equipment [...] -- Current Health Outpatient/Agency/Support Group Needs -- halfway (specify) -- Anticipated Changes Related to Illness none -- -- Living Environment Transportation Available -- car (caregiver from halfway) -- Activity/Self Care Review of Systems Equipment [...] -- Current Health Outpatient/Agency/Support Group Needs -- halfway (specify) -- Anticipated Changes Related to Illness none -- -- Living Environment Transportation Available -- car (caregiver from halfway) -- Activity/Self Care Review of Systems Equipment [...] -- Current Health Outpatient/Agency/Support Group Needs -- halfway (specify) -- Anticipated Changes Related to Illness none -- -- Living Environment Transportation Available -- car (caregiver from halfway) -- Activity/Self Care Review of Systems Equipment [...] and 2 assist LOUIS DORAN PTA Pager: [phone] Inpatient Physical Therapy 09/25/17 1213 Rehab Evaluation Document Type therapy note (daily [...] Assessment/Treatment Assistive Device (Bed Mobility) bed rails Crivci-tv-Qgn Wilson (Bed Mobility) moderate assist (50% patient effort);2 person assist required Comment (Bed Mobility) Pt asleep initially, difficult to arouse, once assisted into seated positionpt able to hold himself up and became slightly more responsive Transfer Assessment/Treatment Bed-Chair Wilson (Transfers) maximum assist (25% patient effort);2 person assist required Jhl-Ydlap-Ytq Assistive Device (Transfers) rolling walker Wilson (Sit-Stand Transfers) moderate assist (50% patient effort);2 person assist required Wilson (Stand-Sit Transfers) moderate assist (50% patient effort);2 person assist required Llj-Ejfxq-Ihw Assistive Device (Transfers) rolling walker Maintain Weight Bearing Status (Transfers) assist to maintain weight bearing status Impairments (Transfers) balance impaired;pain;strength decreased;vision impaired Comment (Transfers) Stand step transfer from bed to recliner chair, some weight bearing on L LE, ptpicked up walker once. Subsequent stands from recliner chair, pt able to maintain initial NWB to L LE Gait Assessment/Treatment Wilson (Gait) moderate assist (50% patient effort);2 person [...] all bed mobility activities Bed Mobility Goal, Wilson Level moderate assist (50% patient effort) Bed Mobility Goal, Outcome Achieved goal ongoing Gait Training Goal Gait Training Goal, Date Established 09/09/17 Gait Training Goal, Time to Achieve by discharge Gait Training Goal, Wilson Level minimum assist (75% patient effort) Gait Training Goal, Assist Device walker, rolling Gait Training Goal, Distance to Achieve 15 ft Gait Training Goal, Outcome goal ongoing Transfer Training Goal Transfer Training Goal, Date Established 09/09/17 Transfer Training Goal, Time to Achieve by discharge Transfer Training Goal, Activity Type gkb-yl-czijc/aysof-iq-jad;wbf-mu-shyke/venns-vq-oup Transfer Train Goal, Wilson Level minimum assist (75% patient effort) Transfer Training Goal, Assist Device walker, rolling Transfer Training Goal, Outcome goal ongoing Physical Therapy Goal PT Goal, Date Established 09/09/17 PT Goal, Time to Achieve by discharge PT Goal, Activity Type Pt will propel self in w/c household distances PT Goal, Wilson Level set up required;supervision required PT Goal, Outcome goal ongoing Clinical Impression Therapy Frequency 2-4 times/wk Anticipated Equipment Needs at Discharge front wheeled walker Anticipated Discharge Disposition senior living facility (could go to handicap accesible halfway with assistance) * Plan of Care - [...] Outcome: Ongoing (Interventions Implemented as Appropriate) 09/23/17 1945 09/24/17 1600 Safety Interventions Isolation Precautions -- standard [...] self care tasks Anticipated Discharge Disposition: (P) senior living facility Pager: [phone] ZULMA Vargas 09/24/2017 Occupational Therapy Rehabilitation Department [...] Assessment/Treatment Assistive Device (Bed Mobility) bed rails Gftivn-lj-Ltp Wilson (Bed Mobility) verbal cues required;contact guard assist Bwz-bh-Zhrlqo Wilson (Bed Mobility) verbal cues required;minimum assist (75% [...] Therapy Frequency 2-4 times/wk Anticipated Discharge Disposition senior living facility * Plan of Care - Laura [...] History: Procedure Laterality Date ??? PRO OPEN ATHLETIC EQUIPMENT MANAGER FIX ACETABULAR FX Left 09/04/2017 @OPEN TREATMENT, ACETABULAR FX (WRVU 25.41) performed by Amy Lance MD at [facility] MAIN OR Patient has following SCHEDULED [...] w/ PRN and scheduled medications, see MAR. [place] removed by ortho this AM, steri strips [...] NKE at bedside, call morris within reach, bed [...] Discharge Needs Assessment 09/08/17 0403 09/18/17 1250 09/19/17919 Discharge Needs Assessment Concerns To Be Addressed -- -- no discharge needs identified Readmission Within The Last 30 Days -- -- no previous admission in last 30 days Equipment Needed After Discharge -- other (see comments) (TBD) -- Current Discharge Risk -- cognitively impaired;physical impairment -- Discharge Disposition -- still a patient -- Current Health Outpatient/Agency/Support Group Needs -- halfway (specify) -- Anticipated Changes Related to Illness none -- -- Living Environment Transportation Available -- car (caregiver from halfway) -- Activity/Self Care Review of Systems Equipment Currently Used at Home -- none -- * Plan of Care - Lisa Person RN - 09/21/2017 1:33 PM EDT Problem: Patient Care Overview Goal: Plan of Care Review Outcome: Ongoing (Interventions Implemented as Appropriate) 09/19/17 17309/21/17 0908 Coping/Psychosocial Plan Of Care Reviewed With [...] -- High -- Goal: Infection Control 09/20/17 0908 Safety Interventions Isolation Precautions standard precautions maintained [...] -- Current Health Outpatient/Agency/Support Group Needs -- halfway (specify) -- Anticipated Changes Related to Illness none -- -- Living Environment Transportation Available -- car (caregiver from halfway) -- Activity/Self Care Review of Systems Equipment Currently Used at Home -- none -- * Plan of Care - Lisa Person RN - 09/20/2017 1:31 PM EDT Problem: Patient Care Overview Goal: Plan of Care Review Outcome: Ongoing (Interventions Implemented as Appropriate) 09/19/17 1734 09/20/17 0908 Coping/Psychosocial Plan Of [...] Overview Goal: Plan of Care Review 09/19/17 9449 Coping/Psychosocial Plan Of Care Reviewed With patient [...] -- Current Health Outpatient/Agency/Support Group Needs -- halfway (specify) -- Anticipated Changes Related to Illness none -- -- Living Environment Transportation Available -- car (caregiver from halfway) -- Activity/Self Care Review of Systems Equipment Currently Used at Home -- none -- * Plan of Care - Lori Ordaz RN - 09/19/2017 5:52 PM EDT Problem: Patient Care Overview Goal: Plan of Care Review Outcome: Ongoing (Interventions Implemented as Appropriate) 09/19/17 7844 Coping/Psychosocial Plan Of Care Reviewed With patient [...] Hands on Surveillance [continuous indirect monitoring]: Pt rosa marcano, hourly rounding Patient-specific fall prevention interventions for [...] 86.6 kg (191 lb) Current bed: [facility] Assessment:Patient with no active pressure injury's at [...] pager or the wound care team at [phone] or pager [phone] withskin and wound care concerns or questions. [...] all self care tasks Anticipated Discharge Disposition: senior living facility Pager: [phone] ZULMA Vargas 09/20/2017 Occupational Therapy Rehabilitation Department [...] Assessment/Training Position (LB Dressing) sitting (in recliner) Wilson Level (LB Dressing) verbal cues required;set up [...] FWW, 2 assist LOUIS DORAN PTA Pager: [phone] Inpatient Physical Therapy 09/19/17 104 Rehab Evaluation [...] Assessment/Treatment Assistive Device (Bed Mobility) bed rails Bsefsj-nh-Sbe Wilson (Bed Mobility) verbal cues required;supervision required Comment (Bed Mobility) extra time required, HOB elevated Transfer Assessment/Treatment Bed-Chair Wilson (Transfers) minimum assist (75% patient effort);2 person assist required Chair-Bed Wilson (Transfers) minimum assist (75% patient effort);2 person assist required Jzk-Ngddw-Vpd Assistive Device (Transfers) rolling walker Wilson (Sit-Stand Transfers) minimum assist (75% patient effort);2 person assist required Wilson (Stand-Sit Transfers) minimum assist (75% patient effort);2 person assist required Pqu-Joirr-Kmp Assistive Device (Transfers) rolling walker Maintain Weight Bearing Status (Transfers) able to maintain weight bearing status Impairments (Transfers) balance impaired;pain;strength decreased;vision impaired Comment (Transfers) Step by step instructions and cues, pt held L LE above the ground with a flexedhip and knee position throughout transfer Gait Assessment/Treatment Wilson (Gait) minimum assist (75% patient effort);2 person [...] all bed mobility activities Bed Mobility Goal, Wilson Level moderate assist (50% patient effort) Bed Mobility Goal, Outcome Achieved goal ongoing Gait Training Goal Gait Training Goal, Date Established 09/09/17 Gait Training Goal, Time to Achieve by discharge Gait Training Goal, Wilson Level minimum assist (75% patient effort) Gait Training Goal, Assist Device walker, rolling Gait Training Goal, Distance to Achieve 15 ft Gait Training Goal, Outcome goal ongoing Transfer Training Goal Transfer Training Goal, Date Established 09/09/17 Transfer Training Goal, Time to Achieve by discharge Transfer Training Goal, Activity Type uoe-iu-imgdu/wcimp-mv-ssz Transfer Train Goal, Wilson Level minimum assist (75% patient effort) Transfer Training Goal, Assist Device walker, rolling Transfer Training Goal, Outcome goal ongoing Physical Therapy Goal PT Goal, Date Established 09/09/17 PT Goal, Time to Achieve by discharge PT Goal, Activity Type Pt will propel self in w/c household distances PT Goal, Wilson Level set up required;supervision required PT Goal, Outcome goal ongoing Clinical Impression Therapy Frequency 2-4 times/wk Anticipated Equipment Needs at Discharge front wheeled walker Anticipated Discharge Disposition senior living facility (could go to handicap accesible halfway with assistance) * Plan of Care - [...] assist with ADLs. Surveillance [continuous indirect monitoring]: Lennoxo, nursing knowledge exchange, purposeful rounding. Patient has history of: No past medical history on file. Past Surgical History: Procedure Laterality Date ??? PRO OPEN ATHLETIC EQUIPMENT MANAGER FIX ACETABULAR FX Left 09/04/2017 @OPEN TREATMENT, ACETABULAR FX (WRVU 25.41) performed by Amy Lance MD at [facility] MAIN OR Patient has following SCHEDULED [...] 30 days Current Health Outpatient/Agency/Support Group Needs halfway (specify) Goal: Interdisciplinary Rounds/Family Conf Outcome: Ongoing [...] History: Procedure Laterality Date ??? PRO OPEN ATHLETIC EQUIPMENT MANAGER FIX ACETABULAR FX Left 09/04/2017 @OPEN TREATMENT, ACETABULAR FX (WRVU 25.41) performed by Amy Lance MD at [facility] MAIN OR Patient has following SCHEDULED [...] self care tasks Anticipated Discharge Disposition: (P) senior living facility Pager: [phone] ZULMA Vargas 09/17/2017 Occupational Therapy Rehabilitation Department 09/17/17 1524 Rehab Evaluation Document Type therapy note (daily [...] Level 3 Bed Mobility Assessment/Treatment Roll Left Wilson (Bed Mobility) minimum assist (75% patient effort);nonverbal cues required (demo/gesture);verbal cues required Roll Right Wilson (Bed Mobility) verbal cues required;nonverbal cues required (demo/gesture) ADL Assessment/Intervention Additional Documentation Grooming Assessment/Training (Group) Grooming Assessment/Training Position (Grooming) (supine in bed with HOB raised) Wilson Level (Grooming) set up required;verbal cues required Impairments (Grooming) other (see comments) (cognative) Comment (Grooming) pt able to wash his face and stomach Plan of Care Review Plan Of Care Reviewed With patient Progress no change Clinical Impression Criteria for Skilled Therapeutic Interventions Met yes;treatment indicated Rehab Potential good, to achieve stated therapy goals Therapy Frequency 2-4 times/wk Anticipated Discharge Disposition senior living facility * Plan of Care - Lenore [...] assist Surveillance [continuous indirect monitoring]: Pt rosa Masimo, hourly rounding Patient-specific fall prevention interventions [...] History: Procedure Laterality Date ??? PRO OPEN ATHLETIC EQUIPMENT MANAGER FIX ACETABULAR FX Left 09/04/2017 @OPEN TREATMENT, ACETABULAR FX (WRVU 25.41) performed by Amy Lance MD at [facility] MAIN OR Patient has following SCHEDULED [...] Lance MD - 09/16/2017 10:24 AM EDT [facility] [place] Patient Name: Miguel Angel Mason : [id number] MR#: [id number] Case Date: 09/04/2017 Surgeon: Surgeon(s) and Role: [...] and is otherwise quite independent in his halfway prior to this injury. Furthermore, she did [...] patient Current Health Outpatient/Agency/Support Group Needs -- halfway (specify) -- Anticipated Changes Related to Illness -- none -- Living Environment Transportation Available -- other (see comments) (member from halfway can provide) -- Activity/Self Care Review of [...] Outcome: Ongoing (Interventions Implemented as Appropriate) 09/15/17 1288 Coping/Psychosocial Plan Of Care Reviewed With patient [...] Overview Goal: Plan of Care Review 09/14/17 1237 Coping/Psychosocial Plan Of Care Reviewed With patient [...] More Personalized Care? -- ISHAAN -- 09/13/17 1415 Individualization Patient Specific Preferences -- Patient Specific [...] -- Current Health Outpatient/Agency/Support Group Needs -- halfway (specify) -- Anticipated Changes Related to Illness -- none -- Living Environment Transportation Available -- other (see comments) (member from halfway can provide) -- Activity/Self Care Review of [...] Outcome: Ongoing (Interventions Implemented as Appropriate) 09/14/17 8942 Coping/Psychosocial Plan Of Care Reviewed With patient [...] [X] Yes - Bed alarm - Family/rn wound care at bedside * Care Management - Eli Aragon RN - 09/14/2017 11:16 AM EDT Asked by previous CM to follow up on patient. Per review of chart, patient may be medically ready tomorrow. CM reviewed responses from referrals to [facility] as followed[facility] [address] [place] [address] - DECLINED- Patient too complex and do not have any private male rooms. [facility] PHONE: [phone] FAX: [phone]- has received referral but has not responded. [facility] [address] [place] [address] DECLINED- No appropriate bed to offer-concerns with behaviors as well. [facility] ([facility]) [address] [place] [address] Pt appears fci, likely not a candidate for S/T rehab at [facility]. We have no beds today, but willkeep referral open. Will ask Friday CM/RS to follow up with [facility] and [facility]. If no beds available, CM to follow up with sibling (as noted in chart) to expand search. Covering pager #[phone] for today. * Plan of Care - [...] screaming worsens with repositioning for incontinence care. [place] DENTAL ASSISTING INSTRUCTOR and intact. Haldol 2 mg po given [...] Handling Outcome: Ongoing (Interventions Implemented as Appropriate) 09/12/17 0828 09/13/17 0903 09/13/172102 Restraint Interventions Safety Promotion/Fall Prevention -- activity [...] Ongoing (Interventions Implemented as Appropriate) 09/13/17 0903 Safety Interventions Isolation Precautions standard precautions maintained [...] -- Current Health Outpatient/Agency/Support Group Needs -- halfway (specify) -- Anticipated Changes Related to Illness -- none -- Living Environment Transportation Available -- other (see comments) (member from halfway can provide) -- Activity/Self Care Review of [...] self care tasks Anticipated Discharge Disposition: (P) senior living facility Pager: [phone] ZULMA Vargas 09/13/2017 Occupational Therapy Rehabilitation Department [...] You More Personalized Care? -- ISHAAN -- 03/07/18 0042 Individualization Patient Specific Preferences -- Patient [...] Outcome: Ongoing (Interventions Implemented as Appropriate) 09/11/17 0800 09/12/17 0809/12/172025 Restraint Interventions Safety Promotion/Fall Prevention -- activity [...] Implemented as Appropriate) 09/07/17 0504 09/08/17 0403 09/10/1741 Discharge Needs Assessment Concerns To Be Addressed -- -- no discharge needs identified Readmission Within The Last 30 Days -- -- -- Equipment Needed After Discharge -- other (see comments) (TBD) -- Current Discharge Risk -- cognitively impaired;physical impairment -- Discharge Disposition -- still a patient -- Current Health Outpatient/Agency/Support Group Needs -- halfway (specify) -- Anticipated Changes Related to Illness -- none -- Living Environment Transportation Available -- other (see comments) (member from halfway can provide) -- Activity/Self Care Review of [...] [X] Yes - Bed alarm - Family/rn wound care at bedside * Plan of Care - [...] Patient/Family/Caregiver Comments/Observations What exercises can he do? 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 and on) General Observations [...] Assessment/Treatment Assistive Device (Bed Mobility) (HOB up) Nbpeyd-ra-Jlm Wilson (Bed Mobility) verbal cues required;minimum assist (75% patient effort);2 person assist required Transfer Assessment/Treatment Bed-Chair Wilson (Transfers) verbal cues required;minimum assist (75% patient effort);moderate assist (50% patient effort);2 person assist required Fdl-Hehyo-Ysl Assistive Device (Transfers) rolling walker Maintain Weight [...] Of Care Reviewed With patient;other (see comments) (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 from halfway) Progress progress towards functional goals is fair Bed Mobility Goal Bed Mobility Goal, Activity Type all bed mobility activities Bed Mobility Goal, Wilson Level moderate assist (50% patient effort) Bed Mobility Goal, Date Goal Reviewed 09/12/17 Bed Mobility Goal, Outcome Achieved goal ongoing Gait Training Goal Gait Training Goal, Wilson Level minimum assist (75% patient effort) Gait Training Goal, Assist Device walker, rolling Gait Training Goal, Distance to Achieve 15 Gait Training Goal, Date Goal Reviewed 09/12/17 Gait Training Goal, Outcome goal ongoing Transfer Training Goal Transfer Training Goal, Time to Achieve by discharge Transfer Training Goal, Activity Type bpp-bm-wlsbs/pgatk-tj-gke Transfer Train Goal, Wilson Level minimum assist (75% patient effort) Transfer Training Goal, Assist Device walker, rolling Transfer Train Goal, Date Goal Reviewed 09/12/17 Transfer Training Goal, Outcome goal ongoing Clinical Impression Rehab Potential fair, will monitor progress closely Therapy Frequency 2-4 times/wk Anticipated Equipment Needs at Discharge two wheeled walker Anticipated Discharge Disposition senior living facility;other (see comments) (could got to handicap accesible halfway with assistance) Staff Mobility Recommendations Stand pivot bed <-> chair toward right LE with FWW and min - mod assist x 2 - needs min assist to maintain NWB LLE with sit -> stand ETELVINA SZYMANSKI, PT Pager: [phone] Inpatient Physical Therapy * Consult Note - Isabel Garcia RN - 09/12/2017 11:40 AM EST Certified Wound Care Nurse Rounding Note During rounding on unit, nurse expressed pt is able to be turned Q2 hours with out issue. Issues/concerns identified: No issues at this time per water project manager Recommendations: Refer to adult/pediatric pressure ulcer prevention [...] sitting up in bed, having lunch with 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 from halfway Pertinent History of Current Problem Pt is [...] Device (Bed Mobility) (HOB up) Roll Left Wilson (Bed Mobility) minimum assist (75% patient effort);2 person assist required Roll Right Wilson (Bed Mobility) verbal cues required;nonverbal cues required (demo/gesture);minimum assist (75% patient effort);2 person assist required Scoot/Bridge Wilson (Bed Mobility) minimum assist (75% patient effort);2 person assist required Wrckkh-xb-Ptk Wilson (Bed Mobility) verbal cues required;nonverbal cues required (demo/gesture);minimum assist (75% patient effort);2 person assist required Safety Issues (Bed Mobility) decreased use of legs for bridging/pushing Impairments (Bed Mobility) pain;ROM (range of motion) decreased Transfer Assessment/Treatment Bed-Chair Wilson (Transfers) nonverbal cues required (demo/gesture);minimum assist (75% patient effort);moderate assist (50% patient effort);2 person assist required Wug-Cjisq-Zub Assistive Device (Transfers) rolling walker Wilson (Sit-Stand Transfers) minimum assist (75% patient effort);2 person assist required Maintain Weight Bearing Status (Transfers) assist to maintain weight bearing status Safety Issues (Transfers) weight-shifting ability decreased Impairments (Transfers) balance impaired;coordination impaired;pain;weight bearing status, unable to maintain Coping Observed Emotional State afraid/fearful;agitated Plan of Care Review Plan Of Care Reviewed With patient;other (see comments) (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) Progress progress towards functional goals is fair Bed Mobility Goal Bed Mobility Goal, Time to Achieve by discharge Bed Mobility Goal, Activity Type all bed mobility activities Bed Mobility Goal, Wilson Level moderate assist (50% patient effort) Bed Mobility Goal, Date Goal Reviewed 09/11/17 Bed Mobility Goal, Outcome Achieved goal ongoing Gait Training Goal Gait Training Goal, Time to Achieve by discharge Gait Training Goal, Wilson Level minimum assist (75% patient effort) Gait Training Goal, Assist Device walker, rolling Gait Training Goal, Distance to Achieve 15 Gait Training Goal, Outcome goal ongoing Transfer Training Goal Transfer Training Goal, Time to Achieve by discharge Transfer Training Goal, Activity Type btj-fz-kpqtc/cvukz-nm-qlv Transfer Train Goal, Wilson Level minimum assist (75% patient effort) Transfer [...] setting of a possible seizure. PT Goal, Wilson Level set up required;supervision required Clinical Impression Therapy Frequency 2-4 times/wk Anticipated Equipment Needs at Discharge front wheeled walker Anticipated Discharge Disposition senior living facility Staff Mobility Recommendations Assist x 2 for stand pivot transfer with FWW toward right - needs assist for NWBing with sit -> stand; does best when asked to count to 3 ETELVINA SZYMANSKI, PT Pager: [phone] Inpatient Physical Therapy * Plan of Care [...] near nurses station [facility]-specific [facility] prevention interventions for sensory deficits [...] -- Current Health Outpatient/Agency/Support Group Needs -- halfway (specify) -- Anticipated Changes Related to Illness -- none -- Living Environment Transportation Available -- other (see comments) (member from halfway can provide) -- Activity/Self Care Review of [...] -- Current Health Outpatient/Agency/Support Group Needs -- halfway (specify) -- Anticipated Changes Related to Illness -- none -- Living Environment Transportation Available -- other (see comments) (member from halfway can provide) -- Activity/Self Care Review of [...] at this time and morse replaced per COTTON GIN YARD SUPERVISOR orders. Pt also removed transverse abdominal dressing, RN replaced with gauze and tegaderm. PRN pain meds provided ATC, see MAR. Pt did not appear to get any relief. COTTON GIN YARD SUPERVISOR notified, one time dose of lorazepam ordered [...] to be independent enough to return to [facility]. Pt would benefit from ongoing physical therapy interventions. Staff Mobility Recommendations Would recommend bedrest until further PT/OT sessions Murtaza Bruce PT Pager: [phone] Inpatient Physical Therapy 2017 PT Evaluation Code [...] Living Environment Comment Pt lives in a halfway with 3 other roomates. The creative assistant of the halfway reports that they have a caregiver there [...] a good distraction from patient. At the halfway he tends to wear jenas with no [...] formally assess 2/2 cognition; however ptable to picker packer leg volitionally and stand up w/ assist Mobility Assessment/Training Additional Documentation Bed Mobility Assessment/Treatment (Group);Transfer Assessment/Treatment (Group);Weight-Bearing Status (Group) Weight-Bearing Status Extremity Weight Bearing Status left lower extremity Bed Mobility Assessment/Treatment Assistive Device (Bed Mobility) (elevated HOB) Scoot/Bridge Wilson (Bed Mobility) minimum assist (75% patient effort) Bdwsxr-qe-Ojq Wilson (Bed Mobility) minimum assist (75% patient effort);2 person assist required Qhz-qu-Qnjyzy Wilson (Bed Mobility) minimum assist (75% patient effort);2 person assist required Impairments (Bed Mobility) coordination impaired;pain;ROM (range of motion) decreased;strength decreased Comment (Bed Mobility) pt able to initiate movements in bed; limited by pain; distraction techniqueof chewing gum worked well Transfer Assessment/Treatment Wilson (Sit-Stand Transfers) minimum assist (75% patient effort);2 person assist required;verbal cues required Wilson (Stand-Sit Transfers) minimum assist (75% patient effort);2 person assist required;verbal cues required Isx-Jptrd-Pbz Assistive Device (Transfers) rolling walker Maintain Weight [...] normal balance Sitting Balance: Dynamic good balance Nkj-st-Dmipd Balance fair balance Standing Balance: Static fair [...] all bed mobility activities Bed Mobility Goal, Wilson Level moderate assist (50% patient effort) Gait Training Goal Gait Training Goal, Date Established 09/09/17 Gait Training Goal, Time to Achieve by discharge Gait Training Goal, Wilson Level minimum assist (75% patient effort) Gait Training Goal, Assist Device walker, rolling Gait Training Goal, Distance to Achieve 15' Transfer Training Goal Transfer Training Goal, Date Established 09/09/17 Transfer Training Goal, Time to Achieve by discharge Transfer Training Goal, Activity Type krl-sz-dlmqb/qlvlf-vc-fgk;mml-fw-perls/udntv-ut-cek Transfer Train Goal, Wilson Level minimum assist (75% patient effort) Transfer Training Goal, Assist Device walker, rolling Physical Therapy Goal PT Goal, Date Established 09/09/17 PT Goal, Time to Achieve by discharge PT Goal, Activity Type Pt will propel self in w/c household distances PT Goal, Wilson Level set up required;conditional independence Clinical Impression Rehab Potential fair, will monitor progress closely Therapy Frequency 2-4 times/wk Anticipated Equipment Needs at Discharge (TBD at rehab ) Anticipated Discharge Disposition senior living facility General Interventions Additional Documentation Planned Therapy [...] Given the set up of h is halfway, anticipate a need for rehab. Staff Recommendations/Things [...] sometimes rips shirts off. Anticipated Discharge Disposition: senior living facility Pager: [phone] SKYLA AYALA OT 09/09/2017 Occupational Therapy Rehabilitation Department 2017 [...] and measurable assessment of functional outcome. 09/09/17 0255 Rehab Evaluation Document Type evaluation Total Evaluation [...] Living Environment Comment Pt lives in a halfway with 3 other roomates. The creative assistant of the halfway reports that they have a caregiver there [...] a good distraction for patient. At the halfway he tends to wear jeans with no [...] UE slightly weak than R, but good sailing master on R Weight-Bearing Status Extremity Weight Bearing Status left lower extremity Bed Mobility Assessment/Treatment Assistive Device (Bed Mobility) (HOB raised) Scoot/Bridge Wilson (Bed Mobility) minimum assist (75% patient effort) Aadrah-rj-Spe Wilson (Bed Mobility) minimum assist (75% patient effort);2 person assist required;verbal cues required (verbal/tactile cues) Efh-np-Yefula Wilson (Bed Mobility) minimum assist (75% patient effort);2 person assist required Impairments (Bed Mobility) pain;strength decreased;coordination impaired;ROM (range of motion) decreased;other (see comments) (mental status) Comment (Bed Mobility) Pt relutant to sit initially 2' pain. Gave gum as likes to chew on things for a coping mechanism. Transfer Assessment/Treatment Wilson (Sit-Stand Transfers) minimum assist (75% patient effort);2 person assist required;verbal cues required (tactile cues) Wilson (Stand-Sit Transfers) minimum assist (75% patient effort);2 person assist required;verbal cues required Fxk-Cwzrf-Byo Assistive Device (Transfers) rolling walker Maintain Weight Bearing Status (Transfers) assist to maintain weight bearing status;cues to maintain weight bearing status Impairments (Transfers) balance impaired;pain;coordination impaired;ROM (range of motion) decreased;strength decreased;other (see comments) (mental status ) Lower Body Dressing Assessment/Training Position (LB Dressing) sitting Wilson Level (LB Dressing) dependent (less than 25% patient effort) Impairments (LB Dressing) balance impaired;coordination impaired;pain;strength decreased (mental status) Comment (LB Dressing) for socks Toileting Assessment/Training Position (Toileting) supported sitting Wilson Level (Toileting) dependent (less than 25% patient effort) Impairments (Toileting) pain;coordination impaired;strength decreased (poor initation, awareness, decreased mobility ) Comment (Toileting) has catheter and wearing depends. Gave Pt gum as Pt was trying to chew his diaper. Balance Skills Training Training Strategies (Balance) seated eob Sitting Balance: Static normal balance Sitting Balance: Dynamic good balance Kun-jz-Czwni Balance fair balance Standing Balance: Static fair [...] wheelchair, commode, shower seat) Anticipated Discharge Disposition senior living facility General Therapy Interventions Planned Therapy Interventions [...] ADLs]: Completely dependent. Surveillance [continuous indirect monitoring]: Jeet, purposedamion rounding, child care lead teacher at bedside, hourly safety checks. Patient-specific fall [...] patient Current Health Outpatient/Agency/Support Group Needs -- halfway (specify) Anticipated Changes Related to Illness -- none Living Environment Transportation Available -- other (see comments) (member from halfway can provide) Activity/Self Care Review of Systems [...] Current Decision-Making Capacity: sister Bettina Mason (Sibling) [id number] [facility] [id number] (H)- ?? Advance Care Planning: not on file Current Coping/Education/Information Needs: Coping well per care givers ?? Current Functional Ability: has not had PT yet per care givers ?? Functional Status Prior to Admission: lives in halfway setting on 2nd level able to ascend stairs, showers self with stand by assist r/t blindness per care givers, non communicative however the care givers seem able to understand at least some of pt's attempts of communication. ?? Home Environment: 3 [place] [facility] [facility] ?? Social & Family Supports/Community Resources: Extended Emergency Contact Information Primary Emergency Contact: IsabellaBettina Address: [address] [place] [id number] [place] [address] Relation: Sibling ?? Behavioral Health History: NA ?? Substance Use/Abuse: NA ?? Other Pertinent/Service Specific Information: unlikely be able to return to halfway immediately ?? Health/Prescription Coverage: Primary Insurance: Payor: [place] / Plan: [place] / Product Type: *No Product type* / Secondary Insurance: Prescription Coverage: see above Preferred Pharmacy: No Pharmacies Listed Other: None ?? Primary Care Provider: NAKIA Cifuentes [phone] ?? Patient/Caregiver Goals of Treatment: Safe discharge ? Potential Needs for Transition of Care: Rehab/SNF: TBD Home Health: no DME: no Dialysis: No Community Resources: No Transportation: ambulance Other: None ?? Anticipated Barriers to Discharge/Special Considerations: None ?? Plan: Per discussion with care givers pt may be near facilities such as [facility] and [facility] in [place]. CM will need to connect with sister for choices ?? A member of the Care Management team will continue to monitor progress, follow for continuity of care and assist with transition of care planning. ?? CHAVEZ KELSEY RN Pager: [phone] ? * Plan of Care - Josefina Miranda RN - 09/08/2017 2:56 PM EST Problem: Patient Care Overview Goal: Plan of Care Review 09/06/170 09/07/172129 Coping/Psychosocial Plan Of Care Reviewed With -- caregiver Plan of Care Review Progress no change -- Goal: Individualization & Mutuality 09/05/17 0609/07/17 0504 Individualization Patient Specific Preferences Able [...] encouraged -- Goal: Discharge Needs Assessment 09/07/1750309/08/17 040 Discharge Needs Assessment Concerns To Be Addressed -- no discharge needs identified Readmission Within The Last 30 Days -- no previous admission in last 30 days Equipment Needed After Discharge -- other (see comments) (TBD) Current Discharge Risk -- cognitively impaired;physical impairment Discharge Disposition -- still a patient Current Health Outpatient/Agency/Support Group Needs -- halfway (specify) Anticipated Changes Related to Illness -- none Living Environment Transportation Available -- other (see comments) (member from halfway can provide) Activity/Self Care Review of Systems Equipment Currently Used at Home none -- Goal: Interdisciplinary Rounds/Family Conf 09/06/17349 Interdisciplinary Rounds/Family Conf Participants patient;nursing Problem: Skin Integrity Impairment, Risk/Actual (Adult) Goal: Identify Related Risk Factors and Signs and Symptoms Related risk factors and signs and symptoms are identified upon initiation of Human Response Clinical Practice Guideline (CPG) 09/06/17349 Skin Integrity Impairment, Risk/Actual Skin Integrity [...] (Interventions Implemented as Appropriate) 09/05/17 0609/07/17 0504 Individualization Patient Specific Preferences Able [...] Handling Outcome: Ongoing (Interventions Implemented as Appropriate) 09/07/17212909/08/17 0403 Restraint Interventions Safety Promotion/Fall Prevention activity supervised;safety [...] patient Current Health Outpatient/Agency/Support Group Needs -- halfway (specify) Anticipated Changes Related to Illness -- none Living Environment Transportation Available -- other (see comments) (member from halfway can provide) Activity/Self Care Review of Systems [...] CPG). Outcome: Ongoing (Interventions Implemented as Appropriate) 09/06/175 09/07/17 213 Fracture Orthopaedic Problems Assessed (Orthopaedic Fracture) [...] Ongoing (Interventions Implemented as Appropriate) 09/06/17 035 Coping/Psychosocial Plan Of Care Reviewed With patient Plan of Care Review Progress no change OUTCOME EVALUATION NOTE: OUTCOME SUMMARY: Patient progressing towards d/c goals slowly at this time. Patient denying pain this shift, denies discomfort. Resting comfortably in between care with head of english at bedside. Repositioned frequently to prevent skin [...] Handling Outcome: Ongoing (Interventions Implemented as Appropriate) 09/04/1785209/05/1790909/05/17 1026 Restraint Interventions Safety Promotion/Fall Prevention -- [...] Appropriate) 09/05/17 0607 Skin Integrity Impairment, Risk/Actual (Adult) Skin Integrity/Wound Healing making progress toward outcome Problem: Fracture Orthopaedic (Adult) Goal: Signs and Symptoms of Listed Potential Problems Will be Absent, Minimized or Managed (Fracture Orthopaedic) Signs and symptoms of listed potential problems will be absent, minimized or managed by discharge/transition of care (reference Fracture Orthopaedic (Adult) CPG). Outcome: Ongoing (Interventions Implemented as Appropriate) 09/05/17606 Fracture Orthopaedic Problems Assessed (Orthopaedic Fracture) all [...] Patient greeted and reason for visit stated. behavioral medical director at bedside. RN at bedside, patient able [...] Please contact Isabel Garcia RN on pager [phone] or the wound care team at [phone] or pager [phone] skin and wound care concerns or questions. [...] HR was tachy for most of shift, C[employer] SUPERVISOR paged and EKG ordered. IV metoprolol given x2 for HR in 140s, but pt sustained in 120s for most of shift. Phosphorus and Magnesiumordered with AM labs, phos critical at 1.1, COT[employer] G[employer]ARD SUPERVISOR notified. IV K phosphate ordered. Pt was [...] Ongoing (Interventions Implemented as Appropriate) 09/05/17 06 Individualization Patient Specific Preferences Able to answer [...] Conf Outcome: Ongoing (Interventions Implemented as Appropriate) 09/05/17 06 Interdisciplinary Rounds/Family Conf Participants nursing;patient;physician Problem: Skin [...] Ongoing (Interventions Implemented as Appropriate) 09/05/17 06 Fracture Orthopaedic Problems Assessed (Orthopaedic Fracture) all Problems Present (Orthopaedic Fracture) pain * Brief Op Note - Wilder Lua - 09/04/2017 12:45 PM EST Brief Operative Note Patient Name: Miguel Angel Mason : [id number] MR#: [id number] Case Date: 09/04/2017 Surgeon: Surgeon(s) and Role: [...] a 27 y.o.male with PMH significant for halfway resident, 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 CT showed an acute left acetabular fracture and osteopenia, he was given morphine, dilaudid and ativan for pain and sedation and was transferred here. Na at [facility] 132. VS here, tachycardic up to 146 [...] 2004 (s/p removal of pituitary gland in [facility]), secondary to surgery. He has been on thyroid replacement 150 mcg daily, DDAVP 0.05 mg three times a day, maintenance hydrocortisone 20 mg morning, 10 mg noon and 10 mg 7 pm and androgel 1% 3 pumps daily. He has been on these doses for a couple of years. 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 Niles Tillman. I reviewed the santos portions of the history and physical exam, and reviewed pertinent lab data. I answered all patient questions. I was involved in all medical decision making and agree with this plan. GENEVIEVE PAGE MD Computer Game Designerchef & owner Section of Endocrinology [facility] [place] Consult Note - [...] acetabular fracture. The patient lives in a halfway at baseline. 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 He presented to [facility] from where he was transferred here for surgery. He was given ativan to prevent further seizures as well as dilaudid for pain. The patient has a history of seizures. He last had a similar seizure 4 years ago. He is on zonisamide 100 mg at bedtime which he has been taking daily without issues. In the past he had more frequentseizures between 7440-4847. His sister is unsure of what types of seizures, she does not think he had GTC in the past. He has no known history of status epilepticus. He has had imaging in the past, EEG but his sister is unsure of the results. He has a neurologist in [place], [place]. At his baseline state, he has [...] no use Living situation: lives in a halfway, has people who help with most ADL [...] file Social History Narrative Lives at the [facility], moved in 11/07/2014. Review of systems: Constitutional: [...] L Elbow flexion 5/5 R, 5/5 L Heel Former LE: 5/5 R, UT L Hip flexion [...] testing Moisés Orr MD PGY-3 Neurology Pager [phone] Neurology Attending I saw and evaluated the [...] status David Phillips [place] [address] Pager #[phone] Email: [email or web address] [place] Plan of Care - Marisabel Cunningham [...] in a van. He lives in a halfway. At baseline he ambulates without assistive devices. He is accompanied by his sister and her friend. His sister is his DPOA. She says he went in the halfway van today. After the ride he was moaning in pain. They took him to [facility] where imaging revealed a left acetabular fracture. Both her and the halfway feel that he had a seizure on [...] evaluation and treatment. Please call Ortho resident pss delivery professional with any questions or concerns. * ED [...] T wave inversion in EKG CARDIAC ENZYMES [place] [place] Routine 03/02/2018 6:26 AM EDT BASIC METABOLIC PANEL Routine 03/02/2018 6:26 AM EDT EKG 12-LEAD STAT 03/01/2018 9:20 AM EDT Tachycardia HEMOGRAM Routine 03/01/2018 8:35 AM EDT DIFFERENTIAL, AUTOMATED Routine 03/01/20 18 8:35 AM EDT BLOOD CULTURE STAT 03/01/2018 8:35 AM EDT CBC (WITH DIFF) Routine 03/01/2018 8:35 AM EDT LDL CHOLESTEROL, DIRECT Routine 03/01/20 18 8:35 AM EDT LIPID PANEL (REFLEX DIRECT LDL) Routine 03/01/2018 8:35 AM EDT BASIC METABOLIC PANEL Routine 03/01/2018 8:35 AM EDT LAVENDER TUBE HOLD STAT 02/28/2018 4: 20 PM EDT CARDIAC ENZYMES [place] [place] Routine 02/28/2018 4:20 PM [...] 01/16/2018 5:02 AM EDT DIFFERENTIAL, AUTOMATED Routine 01/17/20 5:02 AM EDT CBC (WITH DIFF) Routine [...] 12/25/2017 5:50 AM EDT DIFFERENTIAL, AUTOMATED Routine 12/26/19 5:50 AM EDT CBC (WITH DIFF) Routine 12/25/2017 5:50 AM EDT BASIC METABOLIC PANEL Routine 12/25/2017 5:50 AM EDT SODIUM Routine 12/24/2017 12:19 AM EDT HEMOGRAM Routine 12/23/2017 6:41 AM EDT DIFFERENTIAL, AUTOMATED Routine 12/24/19 18 6:41 AM EDT CBC (WITH DIFF) Routine 12/23/2017 6:41 AM EDT BASIC METABOLIC PANEL Routine 12/23/2017 6:41 AM EDT SODIUM Routine 12/21/2017 8:00 PM EDT SCAN, PERIPHERAL BLOOD Routine 8 10:18 AM EDT HEMOGRAM Routine 12/21/2017 10:18 AM EDT DIFFERENTIAL, AUTOMATED Routine 12/22/19 18 10:18 AM EDT CBC (WITH DIFF) Routine [...] 12/06/2017 7:48 AM EDT DIFFERENTIAL, AUTOMATED Routine 12/07/19 18 7:48 AM EDT CBC (WITH DIFF) Routine [...] 7:52 PM EDT SPECIFIC GRAVITY, URINE Routine 11/17/19 18 6:24 AM EDT ELECTROLYTES, URINE, RANDOM Routine [...] 10/22/2017 5:02 AM EDT DIFFERENTIAL, AUTOMATED Routine 10/23/19 5:02 AM EDT CBC (WITH DIFF) Routine 10/22/2017 5:02 AM EDT BMP W/FASTING GLUCOSE Routine 10/21/2017 4:[address] FACE WO CONTRAST Routine 10/20/2017 1 [...] 10/05/2017 5:55 AM EDT DIFFERENTIAL, AUTOMATED Routine 10/06/19 5:55 AM EDT CBC (WITH DIFF) Routine [...] 5:07 PM EDT SCAN, PERIPHERAL BLOOD Routine 8 3:21 AM EDT HEMOGRAM Routine 09/19/2017 3:21 AM EDT DIFFERENTIAL, AUTOMATED Routine 09/20/19 18 3:21 AM EDT CBC (WITH DIFF) Routine [...] 09/16/2017 9:27 AM EDT TYPE AND SCREEN ([facility]) Routine 09/16/2017 9:27 AM EDT PREPARE RBC Routine 09/16/2017 8:35 AM EDT HEMOGRAM Routine 09/16/2017 5:07 AM EDT DIFFERENTIAL, AUTOMATED Routine 09/17/19 18 5:07 AM EDT CBC (WITH DIFF) Routine 09/16/2017 5:07 AM EDT SODIUM Routine 09/16/2017 5:07 AM EDT LAB SCAN 09/16/2017 12:00 AM EDT HEMOGRAM Routine 09/15/2017 1:48 PM EDT DIFFERENTIAL, AUTOMATED Routine 09/16/19 18 1:48 PM EDT CBC (WITH DIFF) Routine [...] 09/10/2017 3:50 AM EST DIFFERENTIAL, AUTOMATED Routine 09/11/19 18 3:50 AM EST CBC (WITH DIFF) Routine 09/10/2017 3:50 AM EST SODIUM Routine 09/10/2017 3:50 AM EST SODIUM Routine 09/09/2017 11:02 AM EST SCAN, PERIPHERAL BLOOD Routine 8 3:21 AM EST HEMOGRAM Routine 09/09/2017 3:21 AM EST DIFFERENTIAL, AUTOMATED Routine 09/10/19 18 3:21 AM EST CBC (WITH DIFF) Routine 09/09/2017 3:21 AM EST SODIUM Routine 09/09/2017 3:21 AM EST SODIUM Routine 09/08/2017 6:19 PM EST U24 HRS AND VOLUME Routine 09/08/2017 6: 00 PM EST CALCIUM, URINE, 24 HOUR Routine 09/09/19 18 6:00 PM EST CREATININE, URINE, 24 HOUR Routine 09/08/2017 6:00 PM EST PHOSPHORUS, URINE, 24 HOUR Routine 09/08/2017 6:00 PM EST SODIUM Routine 09/08/2017 11:58 AM EST HEMOGRAM Routine 09/08/2017 3:34 AM EST DIFFERENTIAL, AUTOMATED Routine 09/09/19 18 3:34 AM EST CBC (WITH DIFF) Routine 09/08/2017 3:34 AM EST SODIUM Routine 09/08/2017 3:34 AM EST PHOSPHORUS Routine 09/08/2017 3:34 AM EST CALCIUM Routine 09/08/2017 3:34 AM EST SODIUM Routine 09/07/2017 12:20 PM EST HEMOGRAM Routine 09/07/2017 4:01 AM EST DIFFERENTIAL, AUTOMATED Routine 09/08/19 18 4:01 AM EST CBC (WITH DIFF) Routine [...] 09/06/2017 4:31 AM EST DIFFERENTIAL, AUTOMATED Routine 09/07/19 18 4:31 AM EST CBC (WITH DIFF) Routine [...] ALBUMIN LEVEL Routine 09/05/2017 7:08 PM EST 1,25-DIHYDROXYCHOLECALC IFEROL Routine 09/05/2017 4:54 PM EST ELECTROLYTES PANEL Timed 09/05/2017 3: 06 PM EST PTH Routine 09/05/2017 11:29 AM EST VITAMIN D, 25-HYDROXY Routine 09/05/2017 11:29 AM EST ELECTROLYTES PANEL Routine 09/05/2017 11 :29 AM EST PHOSPHORUS Routine 09/05/2017 4:16 AM EST HEMOGRAM Routine 09/05/2017 2:35 AM EST DIFFERENTIAL, AUTOMATED Routine 09/06/19 2:35 AM EST CBC (WITH DIFF) Routine 09/05/2017 2:35 AM EST MAGNESIUM Routine 09/05/2017 2:35 AM EST BASIC METABOLIC PANEL Routine 09/05/2017 2:35 AM EST EKG 12-LEAD STAT 09/04/2017 10:30 PM EST Tachycardia ELECTROLYTES PANEL STAT 09/04/2017 7: 23 PM EST POCT GLUCOSE Routine 09/04/2017 7:00 PM EST HEMOGRAM STAT 09/04/2017 3:49 PM EST DIFFERENTIAL, AUTOMATED STAT 09/05/19 18 3:49 PM EST HEMOGLOBIN AND HEMATOCRIT, BLOOD [...] 09/04/2017 11:15 AM EST DIFFERENTIAL, AUTOMATED STAT 09/05/19 18 11:15 AM EST ABO/RH TYPING STAT 09/04/2017 11:15 AM EST CBC (WITH DIFF) STAT 09/04/2017 11:15 AM EST ANTIBODY SCREEN STAT 09/04/2017 11:15 AM EST TYPE AND SCREEN ([facility]) STAT 09/04/2017 11:15 AM EST PREPARE RBC STAT 09/04/2017 11:00 AM EST MODIFIER LARGE FRAGMENT SYSTEM SYNTHES 09/04/2017 9:24 AM EST Left acetabulum fracture MODIFIER PELVIC RECONSTRUCTION PLATE SYNTHES 09/04/2017 9:24 AM EST Left acetabulum fracture MODIFIER SMALL FRAGMENT SYNTHES 09/04/2017 9:24 AM EST Left acetabulum fracture @OPEN TREATMENT, ACETABULAR FX (WRVU 25.41) 09/04/2017 9:24 AM EST Left acetabulum fracture HEMOGRAM Routine 09/04/2017 3:58 AM EST DIFFERENTIAL, AUTOMATED Routine 09/05/19 18 3:58 AM EST TESTOSTERONE, TOTAL AND FREE Routine 09/04/2017 3:58 AM EST CBC (WITH DIFF) Routine 09/04/2017 3:58 AM EST HEPATIC FUNCTION PANEL Routine 8 3:58 AM EST BASIC METABOLIC PANEL Routine 09/04/2017 3:58 AM EST IMPLANTABLE DEVICES SCAN 09/04/2017 12:00 AM EST SOLVENT RECOVERER SCAN 09/04/2017 12:00 AM EST URINALYSIS WITH [...] 09/03/2017 12:54 AM EST DIFFERENTIAL, AUTOMATED STAT 09/03/19 18 12:54 AM EST ABO/RH TYPING STAT 09/03/2017 [...] EDT) Glucose 90 65 - 199 mg/dL [facility] Comment:Diabetes: >=200 mg/d L plus symptoms Blood Urea Nitrogen 11 10 - 20 mg/dL [facility] Creatinine 0.70(L) 0.80 - 1.50 mg/dL [facility] Sodium 138 135 - 145 mmol/L [facility] Potassium 3.9 3.5 - 5.0 mmol/L [facility] Comment: Please note: ??Patients with WBC >100,000 may have falsely elevated Potassium levels. ??For accurate Potassium quantification in these patients send serum separator tube (gold top) for subsequent determinations. ??Contact the Clinical Chemistry Laboratory if there are any questions. Chloride 100 98 - 107 mmol/L [facility] Carbon Dioxide 24 22 - 31 mmol/L [facility] Anion Gap 14 5 - 15 mmol/L [facility] Calcium 8.7 8.5 - 10.5 mg/dL [facility] Est Glomerular Filtration Rate 129 >=60 mL/min/1. 73 m?? [facility] Comment: The eGFR was calculated using the CKD-EPI equation. As with all creatinine based estimates of kidney function, eGFR values calculated with the CKD-EPI equation are not accurate in patients with acute kidney failure, extremes of body mass or the acutely ill. [email or web address] [place] [place] eGFR 150 >=60 mL/min/1. 73 m?? [facility] Comment: The eGFR was calculated using the CKD-EPI equation. As with all creatinine based estimates of kidney function, eGFR values calculated with the CKD-EPI equation are not accurate in patients with acute kidney failure, extremes of body mass or the acutely ill. [email or web address] [place] [place] Blood specimen (specimen) 03/10/2018 1:48 PM EDT 03/10/2018 2:05 PM EDT Narrative Resulting Agency Comment Spec In Lab Gabriella Maher MD CHEMISTRY ORDERABLES [facility] [place] [address] * (ABNORMAL) Basic Metabolic Panel (non-fasting) (03/09/2018 8:46 AM EDT) Glucose 97 65 - 199 mg/dL [facility] Comment:Diabetes: >=200 mg/d L plus symptoms Blood Urea Nitrogen 9(L) 10 - 20 mg/dL [facility] Creatinine 0.68(L) 0.80 - 1.50 mg/dL [facility] Sodium 133(L) 135 - 145 mmol/L [facility] Potassium 3.7 3.5 - 5.0 mmol/L [facility] Comment: Please note: ??Patients with WBC >100,000 may have falsely elevated Potassium levels. ??For accurate Potassium quantification in these patients send serum separator tube (gold top) for subsequent determinations. ??Contact the Clinical Chemistry Laboratory if there are any questions. Chloride 98 98 - 107 mmol/L [facility] Carbon Dioxide 22 22 - 31 mmol/L [facility] Anion Gap 13 5 - 15 mmol/L [facility] Calcium 9.0 8.5 - 10.5 mg/dL [facility] Est Glomerular Filtration Rate 131 >=60 mL/min/1. 73 m?? [facility] Comment: The eGFR was calculated using the CKD-EPI equation. As with all creatinine based estimates of kidney function, eGFR values calculated with the CKD-EPI equation are not accurate in patients with acute kidney failure, extremes of body mass or the acutely ill. [email or web address] eGFR 152 >=60 mL/min/1. 73 m?? [facility] Comment: The eGFR was calculated using the CKD-EPI equation. As with all creatinine based estimates of kidney function, eGFR values calculated with the CKD-EPI equation are not accurate in patients with acute kidney failure, extremes of body mass or the acutely ill. [email or web address] Blood specimen (specimen) 03/09/2018 8:46 AM EDT 03/09/2018 9:15 AM EDT Narrative Resulting Agency Comment Spec In Lab Gabriella Maher MD CHEMISTRY ORDERABLES [facility] [place] [address] * (ABNORMAL) Basic Metabolic Panel (non-fasting) (03/08/2018 6:19 AM EDT) Glucose 107 65 - 199 mg/dL [facility] Comment:Diabetes: >=200 mg/d L plus symptoms Blood Urea Nitrogen 16 10 - 20 mg/dL [facility] Creatinine 0.72(L) 0.80 - 1.50 mg/dL [facility] Sodium 133(L) 135 - 145 mmol/L [facility] Potassium 3.5 3.5 - 5.0 mmol/L [facility] Comment: Please note: ??Patients with WBC >100,000 may have falsely elevated Potassium levels. ??For accurate Potassium quantification in these patients send serum separator tube (gold top) for subsequent determinations. ??Contact the Clinical Chemistry Laboratory if there are any questions. Chloride 97(L) 98 - 107 mmol/L [facility] Carbon Dioxide 21(L) 22 - 31 mmol/L [facility] Anion Gap 15 5 - 15 mmol/L [facility] Calcium 9.0 8.5 - 10.5 mg/dL [facility] Est Glomerular Filtration Rate 128 >=60 mL/min/1. 73 m?? [facility] Comment: The eGFR was calculated using the CKD-EPI equation. As with all creatinine based estimates of kidney function, eGFR values calculated with the CKD-EPI equation are not accurate in patients with acute kidney failure, extremes of body mass or the acutely ill. [email or web address] eGFR 148 >=60 mL/min/1. 73 m?? [facility] LABORATORY Comment: The eGFR was calculated using the CKD-EPI equation. As with all creatinine based estimates of kidney function, eGFR values calculated with the CKD-EPI equation are not accurate in patients with acute kidney failure, extremes of body mass or the acutely ill. [email or web address] Blood specimen (specimen) 03/08/2018 6:19 AM EDT 03/08/2018 6:34 AM EDT Narrative Resulting Agency Comment Spec In Lab Gabriella Maher MD CHEMISTRY ORDERABLES [facility] [place] [place] [address] * (ABNORMAL) Basic Metabolic Panel (non-fasting) (03/07/2018 5:23 PM EDT) Glucose 99 65 - 199 mg/dL [facility] Comment:Diabetes: >=200 mg/d L plus symptoms Blood Urea Nitrogen 15 10 - 20 mg/dL [facility] Creatinine 0.72(L) 0.80 - 1.50 mg/dL [facility] Sodium 135 135 - 145 mmol/L [facility] Comment:result rechecked-RG Potassium 3.5 3.5 - 5.0 mmol/L [facility] Comment: Please note: ??Patients with WBC >100,000 may have falsely elevated Potassium levels. ??For accurate Potassium quantification in these patients send serum separator tube (gold top) for subsequent determinations. ??Contact the Clinical Chemistry Laboratory if there are any questions. Chloride 98 98 - 107 mmol/L [facility] Carbon Dioxide 22 22 - 31 mmol/L [facility] Anion Gap 15 5 - 15 mmol/L [facility] Calcium 8.9 8.5 - 10.5 mg/dL [facility] Est Glomerular Filtration Rate 128 >=60 mL/min/1. 73 m?? [facility] Comment: The eGFR was calculated using the CKD-EPI equation. As with all creatinine based estimates of kidney function, eGFR values calculated with the CKD-EPI equation are not accurate in patients with acute kidney failure, extremes of body mass or the acutely ill. [email or web address] eGFR 148 >=60 mL/min/1. 73 m?? [facility] Comment: The eGFR was calculated using the CKD-EPI equation. As with all creatinine based estimates of kidney function, eGFR values calculated with the CKD-EPI equation are not accurate in patients with acute kidney failure, extremes of body mass or the acutely ill. [email or web address] Blood specimen (specimen) 03/07/2018 5:23 PM EDT 03/07/2018 5:29 PM EDT Narrative Resulting Agency Comment Spec In Lab Gabriella Maher MD CHEMISTRY ORDERABLES [facility] [address] * Basic Metabolic Panel (non-fasting) (03/05/2018 2:19 PM EDT) Glucose 186 65 - 199 mg/dL [facility] Comment:Diabetes: >=200 mg/d L plus symptoms Blood Urea Nitrogen 14 10 - 20 mg/dL [facility] Creatinine 0.81 0.80 - 1.50 mg/dL [facility] Sodium 144 135 - 145 mmol/L [facility] Potassium 3.6 3.5 - 5.0 mmol/L [facility] Comment: Please note: ??Patients with WBC >100,000 may have falsely elevated Potassium levels. ??For accurate Potassium quantification in these patients send serum separator tube (gold top) for subsequent determinations. ??Contact the Clinical Chemistry Laboratory if there are any questions. Chloride 106 98 - 107 mmol/L [facility] Carbon Dioxide 24 22 - 31 mmol/L [facility] Anion Gap 14 5 - 15 mmol/L [facility] Calcium 9.1 8.5 - 10.5 mg/dL [facility] Est Glomerular Filtration Rate 122 >=60 mL/min/1. 73 m?? [facility] Comment: The eGFR was calculated using the CKD-EPI equation. As with all creatinine based estimates of kidney function, eGFR values calculated with the CKD-EPI equation are not accurate in patients with acute kidney failure, extremes of body mass or the acutely ill. [email or web address] [place] eGFR 141 >=60 mL/min/1. 73 m?? [facility] Comment: The eGFR was calculated using the CKD-EPI equation. As with all creatinine based estimates of kidney function, eGFR values calculated with the CKD-EPI equation are not accurate in patients with acute kidney failure, extremes of body mass or the acutely ill. [email or web address] [place] Blood specimen (specimen) 03/05/2018 2:19 PM EDT 03/05/2018 2:25 PM EDT Narrative Resulting Agency Comment Spec In Lab Reba Linton MD CHEMISTRY ORDERA BLES [facility] [place] [address] * (ABNORMAL) Basic Metabolic Panel (non-fasting) (03/04/2018 7:53 AM EDT) Glucose 92 65 - 199 mg/dL [facility] Comment:Diabetes: >=200 mg/d L plus symptoms Blood Urea Nitrogen 15 10 - 20 mg/dL [facility] Creatinine 0.75(L) 0.80 - 1.50 mg/dL [facility] Sodium 148(H) 135 - 145 mmol/L [facility] Potassium 3.5 3.5 - 5.0 mmol/L [facility] Comment: Please note: ??Patients with WBC >100,000 may have falsely elevated Potassium levels. ??For accurate Potassium quantification in these patients send serum separator tube (gold top) for subsequent determinations. ??Contact the Clinical Chemistry Laboratory if there are any questions. Chloride 109(H) 98 - 107 mmol/L [facility] Carbon Dioxide 25 22 - 31 mmol/L [facility] Anion Gap 14 5 - 15 mmol/L [facility] Calcium 9.8 8.5 - 10.5 mg/dL [facility] Est Glomerular Filtration Rate 126 >=60 mL/min/1. 73 m?? [facility] Comment: The eGFR was calculated using the CKD-EPI equation. As with all creatinine based estimates of kidney function, eGFR values calculated with the CKD-EPI equation are not accurate in patients with acute kidney failure, extremes of body mass or the acutely ill. [email or web address] [place] eGFR 146 >=60 mL/min/1. 73 m?? [facility] Comment: The eGFR was calculated using the CKD-EPI equation. As with all creatinine based estimates of kidney function, eGFR values calculated with the CKD-EPI equation are not accurate in patients with acute kidney failure, extremes of body mass or the acutely ill. [email or web address] [place] Blood specimen (specimen) 03/04/2018 7:53 AM EDT 03/04/2018 8:03 AM EDT Narrative Resulting Agency Comment Spec In Lab Reba Linton MD CHEMISTRY ORDERA BLES [facility] [place] [address] * (ABNORMAL) Basic Metabolic Panel (non-fasting) (03/03/2018 12:47 PM EDT) Glucose 260(H) 65 - 199 mg/dL [facility] Comment:Diabetes: >=200 mg/d L plus symptoms Blood Urea Nitrogen 14 10 - 20 mg/dL [facility] Creatinine 0.81 0.80 - 1.50 mg/dL [facility] Sodium 150(H) 135 - 145 mmol/L [facility] Potassium 4.3 3.5 - 5.0 mmol/L [facility] Comment: Please note: ??Patients with WBC >100,000 may have falsely elevated Potassium levels. ??For accurate Potassium quantification in these patients send serum separator tube (gold top) for subsequent determinations. ??Contact the Clinical Chemistry Laboratory if there are any questions. Chloride 114(H) 98 - 107 mmol/L [facility] Carbon Dioxide 22 22 - 31 mmol/L [facility] Anion Gap 14 5 - 15 mmol/L [facility] Calcium 9.6 8.5 - 10.5 mg/dL [facility] Est Glomerular Filtration Rate 122 >=60 mL/min/1. 73 m?? [facility] Comment: The eGFR was calculated using the CKD-EPI equation. As with all creatinine based estimates of kidney function, eGFR values calculated with the CKD-EPI equation are not accurate in patients with acute kidney failure, extremes of body mass or the acutely ill. [email or web address] eGFR 141 >=60 mL/min/1. 73 m?? [facility] Comment: The eGFR was calculated using the CKD-EPI equation. As with all creatinine based estimates of kidney function, eGFR values calculated with the CKD-EPI equation are not accurate in patients with acute kidney failure, extremes of body mass or the acutely ill. [email or web address] Blood specimen (specimen) 03/03/2018 12:47 PM EDT 03/03/2018 1:16 PM EDT Narrative Resulting Agency Comment Spec In Lab Reba Linton MD CHEMISTRY ORDERA OLIVIA [facility] [place] [address] * ECHO COMPLETE (03/02/2018 1:08 PM EDT) EF 65 HEARTLAB SYSTEM Anatomical Region Laterality Modality Other 03/02/2018 Narrative 03/02/2018 1:32 PM EDT Procedure: ?Transthoracic Echocardiogram Patient: ?ISABELLA CARRASCO Judy ?(Age): 1990(27y) Med Rec#: ? [id number] ?Sex: ?M ? [place] [facility] [place]Ht / Wt: ??177(cm)/99(kg) Pt. Loc: ?Adult Floor ? BSA: ?2.16 Study Date: ?? 03/02/2018 ?Pt. Type: Inpatient Tape: ? Referring: Reba Linton Referring: HONORIO Reading: Drew Driscoll ([id number]) Sql Database Administrator: Noel Ash Diagnosis: *Abnormal electrocardiogram [ECG] [EKG] [...] E-wave Vmax ?0.7 ?m/sec ? MV deceleration [id number] ?msec ? MV A-wave Vmax ?0.5 ?m/sec [...] ? Mid-Inferior ?Normal ? Mid-Inferoseptal ?Normal ? Mclean-Septal ? Normal ? Mclean-Anterior ? Normal ? Mclean-Lateral ?Normal ? Mclean-Inferior ? Normal ? Mclean-Tip ?Normal ? This report has been electronically signed by: Drew Driscoll MD ? 03/02/2018 13:32:27 Images reviewed and interpretation verified [facility] Cardiac Ultrasound Laboratory Procedure Note Drew Driscoll MD - 03/02/2018 Procedure: Transthoracic Echocardiogram Patient: ISABELLA ARZATE(Age): 1990(27y) Med Rec#: [id number] Sex: M [place] Loc[place] [facility] [place]t / Wt: 177(cm)/99(kg) Pt. Loc: Adult Floor BSA: 2.16 Study Date: 03/02/2018 Pt. Type: Inpatient Tape: Referring: Reba Linton Referring: HONORIO Reading: Drew Driscoll ([id number]) Sql Database Administrator: Noel Ash Diagnosis: *Abnormal electrocardiogram [ECG] [EKG] [...] MV E-wave Vmax 0.7 m/sec MV deceleration [id number] msec MV A-wave Vmax 0.5 m/sec MV [...] Normal Mid-Posterolateral Normal Mid-Inferior Normal Mid-Inferoseptal Normal Mclean-Septal Normal Mclean-Anterior Normal Mclean-Lateral Normal Mclean-Inferior Normal Mclean-Tip Normal This report has been electronically signed by: Drew Driscoll MD 03/02/2018 13:32:27 Images reviewed and interpretation verified [facility] Cardiac Ultrasound Laboratory Reba Linton MD ECHO ORDERABLES * (ABNORMAL) Basic Metabolic Panel (non-fasting) (03/02/2018 6:26 AM EDT) Glucose 102 65 - 199 mg/dL [facility] Comment:Diabetes: >=200 mg/d L plus symptoms Blood Urea Nitrogen 17 10 - 20 mg/dL [facility] Creatinine 0.64(L) 0.80 - 1.50 mg/dL [facility] Comment:Specimen ultracentri fuged due to gross lipemia Sodium 145 135 - 145 mmol/L [facility] Potassium 3.5 3.5 - 5.0 mmol/L [facility] Comment: Please note: ??Patients with WBC >100,000 may have falsely elevated Potassium levels. ??For accurate Potassium quantification in these patients send serum separator tube (gold top) for subsequent determinations. ??Contact the Clinical Chemistry Laboratory if there are any questions. Chloride 109(H) 98 - 107 mmol/L [facility] Carbon Dioxide 23 22 - 31 mmol/L [facility] Anion Gap 13 5 - 15 mmol/L [facility] Calcium 9.5 8.5 - 10.5 mg/dL [facility] Est Glomerular Filtration Rate 134 >=60 mL/min/1. 73 m?? [facility] Comment: The eGFR was calculated using the CKD-EPI equation. As with all creatinine based estimates of kidney function, eGFR values calculated with the CKD-EPI equation are not accurate in patients with acute kidney failure, extremes of body mass or the acutely ill. [email or web address] eGFR 156 >=60 mL/min/1. 73 m?? [facility] Comment: The eGFR was calculated using the CKD-EPI equation. As with all creatinine based estimates of kidney function, eGFR values calculated with the CKD-EPI equation are not accurate in patients with acute kidney failure, extremes of body mass or the acutely ill. [email or web address] Blood specimen (specimen) 03/02/2018 6:26 AM EDT 03/02/2018 6:42 AM EDT Narrative Resulting Agency Comment Spec In Lab Reba Linton MD CHEMISTRY ORDERA [facility] [place] [place] [address] * Cardiac Enzymes (LEB/CGP) (03/02/2018 6:26 AM EDT) Troponin-T <0.01 0.00 - 0.00 ng/mL [facility] Comment: The 99th percentile for Troponin T is less than 0.01 ng/mL, any detectable cTnT concentration using this assay should be considered elevated. According to the third universal definition of myocardial infarction the following criteria with a clinical presentation consistent with acute myocardial ischemia meets the diagnosis for a myocardial infarction ([place]). Detection of a rise and/or fall of cTnT, with at least one value greater than the 99th percentile (> or = 0.01) and with at least one of the following ?? Symptoms of ischemia ?? New or presumed new significant CO-mixfarq-G wave (ST-T) changes or new left bundle [...] additional sample may be indicated. Reference: Third [place] Definition of Myocardial Infarction. Journal of the [place] [employer] 2012;60:1581-98 Creatine Kinase 45 0 - 200 unit/L [facility] Blood specimen (specimen) 03/02/2018 6:26 AM EDT 03/02/2018 6:41 AM EDT Narrative Resulting Agency Comment Spec In Lab Reba Linton MD CHEMISTRY ORDERA BLES Performing Organization Address [facility]/ZIP Co de Phone Number [facility] [place] [address] * EKG 12 Lead (03/01/2018 9:20 AM EDT) Ventricular rate 98 BPM MUSE SYSTEM Atrial Rate 98 BPM MUSE SYSTEM P-R Interval 146 ms MUSE SYSTEM QRS Duration 102 ms MUSE SYSTEM Q-T Interval 350 ms MUSE SYSTEM QTC Calculated (Bezet) 446 ms MUSE SYSTEM Calculated P [place] 26 degrees MUSE SYSTEM Calculated R [place] 62 degrees MUSE SYSTEM Calculated T [place] 40 degrees MUSE SYSTEM INTERPRETATION Normal sinus rhythm T wave abnormality, consider lateral ischemia Abnormal ECG When compared with ECG of 28-FEB-2018 11:26, No significant change was found Confirmed by MD Hernandez, Sacha ([id number]) on 03/01/2018 11:01:50 AM MUSE SYSTEM 03/01/2018 9:20 AM EDT 03/01/2018 11:01 AM EDT Reba Linton MD ECG ORDERABLES Performing Organization Address [facility]/ZIP Co de Phone Number MUSE SYSTEM * LDL Cholesterol, Direct (03/01/2018 8:35 AM EDT) LDL Cholesterol, Direct 31 mg/dL [facility] Comment: Lowest Risk: <100 mg/dL Lower Risk: 100-129 mg/dL Borderline High Risk: 130-159 mg/dL High Risk: 160-189 mg/dL Very High Risk: >eh=058 mg/dL Blood specimen (specimen) 03/01/2018 8:35 AM EDT 03/01/2018 8:48 AM EDT Narrative Resulting Agency Comment Spec In Lab Reba Linton MD CHEMISTRY ORDERA BLES [facility] [place] [address] * Differential, Automated (03/01/2018 8:35 AM EDT) Pathologist [facility] Neutrophil % 39.2 % [facility] Neutrophil Absolute 2.12 1.70 - 6.10 x10(3)/[facility] LAB[facility] Lymph % 45.9 % [facility] Lymphocytes Abs 2.5 0.9 - 3.2 x10(3)/[facility] Monocyte % 10.3 % [facility] Monocyte Abs 0.6 0.3 - 0.9 x10(3)/[facility] Eos % 3.3 % [facility] Eosinophils Abs 0.2 0.0 - 0.4 x10(3)/[facility] Basophil % 0.7 % [facility] Baso Absolute 0.0 0.0 - 0.1 x10(3)/[facility] Immature Gran % 0.60 % [facility] Comment: Immature granulocytes(IG's)percentage and absolute count will include metamyelocytes, myelocytes, and promyelocytes. Blood smears from CBCs yielding IG's will be scanned manually for concordance. If this scan disagrees with the automated IG or if promyelocytes are noted, a manual differential will be performed. Immature Gran Absolute 0.03 0.00 - 0.04 x10(3)/[facility] Blood specimen (specimen) 03/01/2018 8:35 AM EDT 03/01/2018 8:43 AM EDT Narrative Resulting Agency Comment Spec In Lab Reba Linton MD HEMATOLOGY ORDER LYNDSEY [facility] [address] * (ABNORMAL) Hemogram (03/01/2018 8:35 AM EDT) White Blood Cell 5.4 4.0 - 9.5 x10(3)/[facility] LABORATORY Red Blood Cell 4.89 4.58 - 5.54 x10(6)/[facility]ATORY Hemoglobin 11.9(L) 13.7 - 16.5 gm/dL [facility] Hematocrit 36.7(L) 40.5 - 48.5 % [facility] Mean Cell Volume 75.1(L) 82.9 - 93.1 [facility] Mean Cell Hemoglobin 24.3(L) 27.5 - 32.1 pg [facility] Mean Cell Hemoglobin Concentration 32.4 32.0 - 35.7 gm/dL [facility] Platelet 272 145 - 357 x10(3)/[facility] LABORATORY RDW Standard Deviation 47.2(H) 36.0 - 45.0 [facility] RDW coefficient of variation 17.6(H) 11.4 - 13.8 % [facility] Mean Platelet Volume 10.5 7.6 - 12.9 [facility] NRBC% auto 0.0 % [facility] NRBC Absolute 0.000 0.000 - 0.000 x10(3)/[facility] Blood specimen (specimen) 03/01/2018 8:35 AM EDT 03/01/2018 8:43 AM EDT Narrative Resulting Agency Comment Spec In Lab Reba Linton MD HEMATOLOGY ORDER LYNDSEY [facility] [place] [address] * Lipid Panel (03/01/2018 8:35 AM EDT) Cholesterol, Total 273 mg/dL [facility] Comment: Lower Risk: <200 mg/dL Average Risk: 200-239 mg/dL Higher Risk: >nu=742 mg/dL Triglyceride 2,210 mg/dL [facility] Comment: Average Risk/Lower Risk: <150 mg/dL Borderline High Risk: 150-199 mg/dL High Risk: 200-499 mg/dL Very High Risk: >hl=494 mg/dL HDL Cholesterol 13 mg/dL [facility] Comment: Males: ?? Higher Risk: <40 mg/dL Females: ?? HIgher Risk: <50 mg/dL LDL Cholesterol Not Calculated [facility] Comment: Lowest Risk: <100 mg/dL Lower Risk: 100-129 mg/dL Borderline High Risk: 130-159 mg/dL High Risk: 160-189 mg/dL Very High Risk: >mi=635 mg/dL Since a calculated LDL value is not valid for triglycerides greater than 400 mg/dl, a direct LDL determination is performed instead. Lowest Risk: <100 mg/dL Lower Risk: 100-129 mg/dL Borderline High Risk: 130-159 mg/dL High Risk: 160-189 mg/dL Very High Risk: >vb=204 mg/dL Corrected from -182 mg/dL [NA] on 03/01/18 09:31 by Lili Reilly. Cholesterol/HDL Ratio 21.0 ratio [facility] Lipid Interpretation See Note [facility] Comment: Lipid management should be guided by a patient? s ASCVD risk, goals and preferences. ACC/AHA Guidelines recommend high intensity statin if clinical ASCVD or LDL greater than or equal to 190 mg/dL. http://tinyurl.com/WLL-VSK-Vzgoeswsw Adults aged 40-75 with LDL 70-189 mg/dL should have their 10 year ASCVD risk estimated with the ACC/AHA ASCVD risk building estimator http://tools.acc.org/KIIQU-Olxj-Cjknokejt/ Statin should be discussed if risk greater [...] Lab Reba Linton MD CHEMISTRY ORDERA BLES [facility] [address] * (ABNORMAL) Basic Metabolic Panel (non-fasting) (03/01/2018 8:35 AM EDT) Glucose 109 65 - 199 mg/dL [facility] Comment:Diabetes: >=200 mg/d L plus symptoms Blood Urea Nitrogen 22(H) 10 - 20 mg/dL [facility] Creatinine 0.96 0.80 - 1.50 mg/dL [facility] Comment:Specimen ultracentri fuged due to gross lipemia Sodium 148(H) 135 - 145 mmol/L [facility] Comment:Specimen ultracentri fuged due to gross lipemia Potassium Not Perf 3.5 - 5.0 [facility] Comment: Unable to quantitate due to sample hemolysis. ??Sample redraw suggested. ??Called to Suzi 03/01/18 09:21. mkf Please note: ??Patients with WBC >100,000 may have falsely elevated Potassium levels. ??For accurate Potassium quantification in these patients send serum separator tube (gold top) for subsequent determinations. ??Contact the Clinical Chemistry Laboratory if there are any questions. Chloride 107 98 - 107 mmol/L [facility] Carbon Dioxide 26 22 - 31 mmol/L [facility] Anion Gap 15 5 - 15 mmol/L [facility] Calcium 9.5 8.5 - 10.5 mg/dL [facility] Est Glomerular Filtration Rate 108 >=60 mL/min/1. 73 m?? [facility] Comment: The eGFR was calculated using the CKD-EPI equation. As with all creatinine based estimates of kidney function, eGFR values calculated with the CKD-EPI equation are not accurate in patients with acute kidney failure, extremes of body mass or the acutely ill. [email or web address] [place] eGFR 125 >=60 mL/min/1. 73 m?? [facility] Comment: The eGFR was calculated using the CKD-EPI equation. As with all creatinine based estimates of kidney function, eGFR values calculated with the CKD-EPI equation are not accurate in patients with acute kidney failure, extremes of body mass or the acutely ill. [email or web address] Blood specimen (specimen) 03/01/2018 8:35 AM EDT 03/01/2018 8:42 AM EDT Narrative Resulting Agency Comment Spec In Lab Reba Linton MD CHEMISTRY ORDERA BLES Performing Organization Address City/[facility]/ZIP Co de Phone Number [facility] [address] * Blood culture (03/01/2018 8:35 AM EDT) Blood Culture No growth at 5 days. [facility] Blood specimen (specimen) 03/01/2018 8:35 AM EDT 03/01/2018 9:34 AM EDT Narrative Resulting Agency Comment Spec In Lab Reba Linton MD MICROBIOLOGY - B LOOD ORDERABLES Performing Organization Address [facility]/ZIP Co de Phone Number [facility] [address] * Potassium (02/28/2018 4:20 PM EDT) Potassium 4.1 3.5 - 5.0 mmol/L [facility] Comment: Specimen ultracentrifuged due to [...] MD CHEMISTRY ORDERA BLES Performing Organization Address City/[facility]/ZIP Co de Phone Number [facility] [place] [address] * Lavender Tube HOLD (02/28/2018 4:20 PM EDT) Lavender Hold Sample in lab. [facility] Blood specimen (specimen) Venous Draw / Unknown 02/28/2018 4:20 PM EDT 02/28/2018 4:33 PM EDT Reba Linton MD HEMATOLOGY ORDER LYNDSEY Performing Organization Address City/[facility]/ZIP Co de Phone Number [facility] [place] [address] * Blood culture (02/28/2018 4:20 PM EDT) Blood Culture No growth at 5 days. [facility] Blood specimen (specimen) 02/28/2018 4:20 PM EDT 02/28/2018 5:06 PM EDT Narrative Resulting Agency Comment Spec In Lab Reba Linton MD MICROBIOLOGY - B LOOD ORDERABLES [facility] [place] [address] * (ABNORMAL) Basic Metabolic Panel (non-fasting) (02/28/2018 4:20 PM EDT) Glucose 129 65 - 199 mg/dL [facility] Comment:Diabetes: >=200 mg/d L plus symptoms Blood Urea Nitrogen 15 10 - 20 mg/dL [facility] Creatinine 1.02 0.80 - 1.50 mg/dL [facility] Comment:Specimen ultracentri fuged due to gross lipemia Sodium 147(H) 135 - 145 mmol/L [facility] Comment:Specimen ultracentri fuged due to gross lipemia Potassium Not Perf 3.5 - 5.0 [facility] Comment: Unable to quantitate due to sample hemolysis. ??Sample redraw suggested. called to sarika gomez 02/28/18 17:16 Please note: ??Patients with WBC >100,000 may have falsely elevated Potassium levels. ??For accurate Potassium quantification in these patients send serum separator tube (gold top) for subsequent determinations. ??Contact the Clinical Chemistry Laboratory if there are any questions. Chloride 109(H) 98 - 107 mmol/L [facility] Comment:Specimen ultracentri fuged due to gross lipemia Carbon Dioxide 21(L) 22 - 31 mmol/L [facility] Anion Gap 17(H) 5 - 15 mmol/L [facility] Calcium 9.3 8.5 - 10.5 mg/dL [facility] Est Glomerular Filtration Rate 100 >=60 mL/min/1. 73 m?? [facility] Comment: The eGFR was calculated using the CKD-EPI equation. As with all creatinine based estimates of kidney function, eGFR values calculated with the CKD-EPI equation are not accurate in patients with acute kidney failure, extremes of body mass or the acutely ill. [email or web address] eGFR 116 >=60 mL/min/1. 73 m?? [facility] Comment: The eGFR was calculated using the CKD-EPI equation. As with all creatinine based estimates of kidney function, eGFR values calculated with the CKD-EPI equation are not accurate in patients with acute kidney failure, extremes of body mass or the acutely ill. [email or web address] Blood specimen (specimen) 02/28/2018 4:20 PM EDT 02/28/2018 4:32 PM EDT Narrative Resulting Agency Comment Spec In Lab Reba Linton MD CHEMISTRY ORDERA BLES [facility] [place] [place] [address] * Cardiac Enzymes (LEB/CGP) (02/28/2018 4:20 PM EDT) Troponin-T <0.01 0.00 - 0.00 ng/mL [facility] Comment: The 99th percentile for Troponin T is less than 0.01 ng/mL, any detectable cTnT concentration using this assay should be considered elevated. According to the third universal definition of myocardial infarction the following criteria with a clinical presentation consistent with acute myocardial ischemia meets the diagnosis for a myocardial infarction ([place]). Detection of a rise and/or fall of cTnT, with at least one value greater than the 99th percentile (> or = 0.01) and with at least one of the following ?? Symptoms of ischemia ?? New or presumed new significant LK-ncuvdpn-I wave (ST-T) changes or new left bundle [...] additional sample may be indicated. Reference: Third [place] Definition of Myocardial Infarction. Journal of the [place] [employer] 2012;60:1581-98 Creatine Kinase 69 0 - 200 unit/L [facility] Blood specimen (specimen) 02/28/2018 4:20 PM EDT 02/28/2018 4:32 PM EDT Narrative Resulting Agency Comment Spec In Lab Reba Linton MD CHEMISTRY ORDERA BLES Performing Organization Address [facility]/[place] [address] * (ABNORMAL) Urine culture (02/28/2018 3:53 PM EDT) Urine Culture 10,000-49,000 cfu/ml Citrobacter koseri (Citrobacter diversus)(A) [facility] Organism Citrobacter koseri (Citrobacter diversus)(A) [facility] Urine specimen obtained by clean [...] Linton MD MICROBIOLOGY - G ENERAL ORDERABLES Performing Organization Address City/[facility]/ZIP Co de Phone Number [facility] [place] [address] * (ABNORMAL) Urinalysis Microscopic Exam (02/28/2018 3:53 PM EDT) RBC, Urine 2 0 - 3 /HPF [facility] WBC, Urine 24(H) 0 - 3 /HPF [facility] Squamous Epithelial Cells Raw Data, Urine <1 <=4 /HPF [facility] Urine specimen obtained by clean catch procedure (specimen) 02/28/2018 3:53 PM EDT 02/28/2018 4:09 PM EDT Narrative Resulting Agency Comment Spec In Lab Reba Linton MD URINE ORDERABLES Performing Organization Address City/[facility]/ZIP Co de Phone Number [facility] [place] [address] * Urine Hold (02/28/2018 3:53 PM EDT) Hold, Urine Sample in lab. [facility] Urine specimen (specimen) Urine / Unknown 02/28/2018 3:53 PM EDT 02/28/2018 4:09 PM EDT Reba Linton MD URINE ORDERABLES Performing Organization Address City/[facility]/ZIP Co de Phone Number [facility] [address] * (ABNORMAL) Urinalysis with reflex Culture (02/28/2018 3:53 PM EDT) Glucose, Urine Dipstick Negative Negative mg/dL [facility] Protein, Urine Dipstick Negative Negative mg/dL [facility] Bilirubin, Urine Dipstick Negative Negative mg/dL [facility] Comment: Clinical correlation required for positive Urine Bilirubin results as false positive may occur with some drugs and drug related products. If a false positive is suspected a serum total bilirubin should be considered if clinically indicated. Urobilinogen, Urine Dipstick Normal Normal mg/dL [facility] pH, Urn (dipstick) 6.0 5.0 - 8.0 [facility] Blood, Urine Dipstick Negative Negative mg/dL [facility] Ketone, Urine Dipstick Negative Negative mg/dL [facility] Nitrite, Urine Dipstick Negative Negative [facility] Leukocytes, Urine Dipstick Small(A) Negative [facility] Appearance, Urine Dipstick Clear Clear [facility] Specific [place] Urine Automated 1.013 1.002 - 1.030 [facility] Color, Urine Dipstick Yellow Yellow [facility] Reflex to Culture Yes [facility] Urine specimen obtained by clean catch procedure (specimen) 02/28/2018 3:53 PM EDT 02/28/2018 4:09 PM EDT Narrative Resulting Agency Comment Spec In Lab Reba Linton MD URINE ORDERABLES Performing Organization Address City/State/[facility] Co de Phone Number [facility] [place] [phone] * EKG 12 Lead (02/28/2018 11:26 AM EDT) Ventricular rate 112 BPM MUSE SYSTEM Atrial Rate 112 BPM MUSE SYSTEM P-R Interval 138 ms MUSE SYSTEM QRS Duration 84 ms MUSE SYSTEM Q-T Interval 326 ms MUSE SYSTEM QTC Calculated (Bezet) 444 ms MUSE SYSTEM Calculated P [place] 15 degrees MUSE SYSTEM Calculated R [place] 56 degrees MUSE SYSTEM Calculated T [place] 43 degrees MUSE SYSTEM INTERPRETATION Sinus tachycardia Nonspecific T wave abnormality Abnormal ECG When compared with ECG of 28-FEB-2018 05:43, (unconfirmed) Non-specific change in ST segment in Anterior leads Nonspecific T wave abnormality has replaced inverted T waves in Inferior leads Confirmed by MD Gene, Constantino Jacobs ([id number]) on 02/28/2018 3:58:07 PM MUSE SYSTEM 02/28/2018 11:2 6 AM EDT 02/28/2018 3:58 PM EDT Reba Linton MD ECG ORDERABLES MUSE SYSTEM * Cardiac Enzymes (LEB/CGP) (02/28/2018 9:26 AM EDT) Troponin-T Not Perf 0.00 - 0.00 [facility] Comment: Unable to quantitate due [...] meets the diagnosis for a myocardial infarction ([place]). Detection of a rise and/or fall of cTnT, with at least one value greater than the 99th percentile (> or = 0.01) and with at least one of the following ?? Symptoms of ischemia ?? New or presumed new significant UR-cgqcmit-W wave (ST-T) changes or new left bundle [...] additional sample may be indicated. Reference: Third [place] Definition of Myocardial Infarction. Journal of the [place] [employer] 2012;60:1581-98 Creatine Kinase Not Perf 0 - 200 [facility] Comment: Unable to quantitate due to sample hemolysis. ??Sample redraw suggested. Called by: loyda, Read back by: noel urbano, Date/Time:02/28/18 10:14. Blood specimen (specimen) Venous Draw / Unknown 02/28/2018 9:26 AM EDT 02/28/2018 9:32 AM EDT Narrative Resulting Agency Comment Spec In Lab Reba Linton MD CHEMISTRY ORDERA BLES [facility] [place] [address] * (ABNORMAL) Basic Metabolic Panel (non-fasting) (02/28/2018 9:26 AM EDT) Glucose 208(H) 65 - 199 mg/dL [facility] Comment: Specimen ultracentrifuged due to gross lipemia Diabetes: >=200 mg/dL plus symptoms Blood Urea Nitrogen 13 10 - 20 mg/dL [facility] Comment:Specimen ultracentri fuged due to gross lipemia Creatinine 0.89 0.80 - 1.50 mg/dL [facility] Comment:Specimen ultracentri fuged due to gross lipemia Sodium 150(H) 135 - 145 mmol/L [facility] Comment:Specimen ultracentri fuged due to gross lipemia Potassium Not Perf 3.5 - 5.0 [facility] Comment: Unable to quantitate due [...] questions. Chloride 112(H) 98 - 107 mmol/L [facility] Comment:Specimen ultracentri fuged due to gross lipemia Carbon Dioxide 23 22 - 31 mmol/L [facility] Comment:Specimen ultracentri fuged due to gross lipemia Anion Gap 15 5 - 15 mmol/L [facility] Calcium 9.7 8.5 - 10.5 mg/dL [facility] Comment:Specimen ultracentri fuged due to gross lipemia Est Glomerular Filtration Rate 117 >=60 mL/min/1. 73 m?? [facility] Comment: The eGFR was calculated using the CKD-EPI equation. As with all creatinine based estimates of kidney function, eGFR values calculated with the CKD-EPI equation are not accurate in patients with acute kidney failure, extremes of body mass or the acutely ill. [email or web address] [place] CITY[place] eGFR 136 >=60 mL/min/1. 73 m?? [facility] Comment: The eGFR was calculated using the CKD-EPI equation. As with all creatinine based estimates of kidney function, eGFR values calculated with the CKD-EPI equation are not accurate in patients with acute kidney failure, extremes of body mass or the acutely ill. [email or web address] Blood specimen (specimen) 02/28/2018 9:26 AM EDT 02/28/2018 9:32 AM EDT Narrative Resulting Agency Comment Spec In Lab Reba Lintno MD CHEMISTRY ORDERA BLES Performing Organization Address [facility]/ZIP Co de Phone Number [facility] [place] [address] * EKG 12 Lead (02/28/2018 5:43 AM EDT) Ventricular rate 127 BPM MUSE SYSTEM Atrial Rate 127 BPM MUSE SYSTEM P-R Interval 136 ms MUSE SYSTEM QRS Duration 94 ms MUSE SYSTEM Q-T Interval 316 ms MUSE SYSTEM QTC Calculated (Bezet) 459 ms MUSE SYSTEM Calculated P [place] 41 degrees MUSE SYSTEM Calculated R [place] 72 degrees MUSE SYSTEM Calculated T [place] 40 degrees MUSE SYSTEM INTERPRETATION Sinus tachycardia ST & T wave abnormality, consider anterolateral ischemia T wave abnormality, consider inferior ischemia Abnormal ECG When compared with ECG of 05-DEC-2017 17:29, Non-specific change in ST segment in Anterior leads T wave inversion now evident in Inferior leads Nonspecific T wave abnormality now evident in Anterior leads Confirmed by MD Mills Gregory A. ([id number]) on 02/28/2018 3:57:48 PM MUSE SYSTEM 02/28/2018 5:43 AM EDT 02/28/2018 3:57 PM EDT Brenda Greco APRN ECG ORDERABLES Performing Organization Address [facility]/ZIP Co de Phone Number MUSE SYSTEM * Potassium (02/27/2018 5:58 AM EDT) Potassium 4.3 3.5 - 5.0 mmol/L [facility] Comment: Please note: ??Patients [...] In Lab Abimbola Goldstein MD CHEMISTRY ORDERABLES [facility] [place] [address] * (ABNORMAL) Basic Metabolic Panel (non-fasting) (02/27/2018 4:14 AM EDT) Glucose 244(H) 65 - 199 mg/dL [facility] Comment: result rechecked-[facility] Diabetes: >=200 mg/dL plus symptoms Blood Urea Nitrogen 12 10 - 20 mg/dL [facility] Creatinine 0.63(L) 0.80 - 1.50 mg/dL [facility] Sodium 146(H) 135 - 145 mmol/L [facility] Potassium Not Perf 3.5 - 5.0 [facility] Comment: Specimen hemolyzed. Called by: [facility], Read back by: Emerald Rasheed, Date/Time:02/27/18 05:43. Please note: ??Patients with WBC >100,000 may have falsely elevated Potassium levels. ??For accurate Potassium quantification in these patients send serum separator tube (gold top) for subsequent determinations. ??Contact the Clinical Chemistry Laboratory if there are any questions. Chloride 111(H) 98 - 107 mmol/L [facility] Carbon Dioxide 23 22 - 31 mmol/L [facility] Anion Gap 12 5 - 15 mmol/L [facility] Calcium 9.7 8.5 - 10.5 mg/dL [facility] Est Glomerular Filtration Rate 135 >=60 mL/min/1. 73 m?? [facility] Comment: The eGFR was calculated using the CKD-EPI equation. As with all creatinine based estimates of kidney function, eGFR values calculated with the CKD-EPI equation are not accurate in patients with acute kidney failure, extremes of body mass or the acutely ill. [email or web address] [place]nk[place] eGFR 157 >=60 mL/min/1. 73 m?? [facility] Comment: The eGFR was calculated using the CKD-EPI equation. As with all creatinine based estimates of kidney function, eGFR values calculated with the CKD-EPI equation are not accurate in patients with acute kidney failure, extremes of body mass or the acutely ill. [email or web address] [place]nkf Blood specimen (specimen) 02/27/2018 4:14 AM EDT 02/27/2018 4:55 AM EDT Narrative Resulting Agency Comment Spec In Lab Abimbola Goldstein MD CHEMISTRY ORDERABLES [facility] [place] [address] * (ABNORMAL) Basic Metabolic Panel (non-fasting) (02/24/2018 5:25 AM EDT) Glucose 89 65 - 199 mg/dL [facility] Comment:Diabetes: >=200 mg/d L plus symptoms Blood Urea Nitrogen 22(H) 10 - 20 mg/dL [facility] Creatinine 0.79(L) 0.80 - 1.50 mg/dL [facility] Sodium 146(H) 135 - 145 mmol/L [facility] Potassium 3.5 3.5 - 5.0 mmol/L [facility] Comment: Please note: ??Patients with WBC >100,000 may have falsely elevated Potassium levels. ??For accurate Potassium quantification in these patients send serum separator tube (gold top) for subsequent determinations. ??Contact the Clinical Chemistry Laboratory if there are any questions. Chloride 106 98 - 107 mmol/L [facility] Carbon Dioxide 27 22 - 31 mmol/L [facility] Anion Gap 13 5 - 15 mmol/L [facility] Calcium 9.7 8.5 - 10.5 mg/dL [facility] Est Glomerular Filtration Rate 123 >=60 mL/min/1. 73 m?? [facility] Comment: The eGFR was calculated using the CKD-EPI equation. As with all creatinine based estimates of kidney function, eGFR values calculated with the CKD-EPI equation are not accurate in patients with acute kidney failure, extremes of body mass or the acutely ill. [email or web address] [place] eGFR 143 >=60 mL/min/1. 73 m?? [facility] Comment: The eGFR was calculated using the CKD-EPI equation. As with all creatinine based estimates of kidney function, eGFR values calculated with the CKD-EPI equation are not accurate in patients with acute kidney failure, extremes of body mass or the acutely ill. [email or web address] Blood specimen (specimen) 02/24/2018 5:25 AM EDT 02/24/2018 5:39 AM EDT Narrative Resulting Agency Comment Spec In Lab Abimbola Goldstein MD CHEMISTRY ORDERABLES [facility] [place] [address] * (ABNORMAL) Basic Metabolic Panel (non-fasting) (02/23/2018 9:10 AM EDT) Glucose 106 65 - 199 mg/dL [facility] Comment:Diabetes: >=200 mg/d L plus symptoms Blood Urea Nitrogen 19 10 - 20 mg/dL [facility] Creatinine 0.79(L) 0.80 - 1.50 mg/dL [facility] Sodium 150(H) 135 - 145 mmol/L [facility] Potassium 3.9 3.5 - 5.0 mmol/L [facility] Comment: Please note: ??Patients with WBC >100,000 may have falsely elevated Potassium levels. ??For accurate Potassium quantification in these patients send serum separator tube (gold top) for subsequent determinations. ??Contact the Clinical Chemistry Laboratory if there are any questions. Chloride 111(H) 98 - 107 mmol/L [facility] Carbon Dioxide 24 22 - 31 mmol/L [facility] Anion Gap 15 5 - 15 mmol/L [facility] Calcium 10.3 8.5 - 10.5 mg/dL [facility] Est Glomerular Filtration Rate 123 >=60 mL/min/1. 73 m?? [facility] Comment: The eGFR was calculated using the CKD-EPI equation. As with all creatinine based estimates of kidney function, eGFR values calculated with the CKD-EPI equation are not accurate in patients with acute kidney failure, extremes of body mass or the acutely ill. [email or web address] eGFR 143 >=60 mL/min/1. 73 m?? [facility] Comment: The eGFR was calculated using the CKD-EPI equation. As with all creatinine based estimates of kidney function, eGFR values calculated with the CKD-EPI equation are not accurate in patients with acute kidney failure, extremes of body mass or the acutely ill. [email or web address] Blood specimen (specimen) 02/23/2018 9:10 AM EDT 02/23/2018 9:19 AM EDT Narrative Resulting Agency Comment Spec In Lab Maldonado Salazar MD CHEMISTRY ORDERABLES [facility] [place] [address] * (ABNORMAL) Basic Metabolic Panel (non-fasting) (02/20/2018 5:38 AM EDT) Glucose 125 65 - 199 mg/dL [facility] Comment:Diabetes: >=200 mg/d L plus symptoms Blood Urea Nitrogen 15 10 - 20 mg/dL [facility] Creatinine 0.68(L) 0.80 - 1.50 mg/dL [facility] Sodium 142 135 - 145 mmol/L [facility] Potassium 3.4(L) 3.5 - 5.0 mmol/L [facility] Comment: Please note: ??Patients with WBC >100,000 may have falsely elevated Potassium levels. ??For accurate Potassium quantification in these patients send serum separator tube (gold top) for subsequent determinations. ??Contact the Clinical Chemistry Laboratory if there are any questions. Chloride 106 98 - 107 mmol/L [facility] Carbon Dioxide 24 22 - 31 mmol/L [facility] Anion Gap 12 5 - 15 mmol/L [facility] Calcium 9.7 8.5 - 10.5 mg/dL [facility] Est Glomerular Filtration Rate 131 >=60 mL/min/1. 73 m?? [facility] Comment: The eGFR was calculated using the CKD-EPI equation. As with all creatinine based estimates of kidney function, eGFR values calculated with the CKD-EPI equation are not accurate in patients with acute kidney failure, extremes of body mass or the acutely ill. [email or web address] [place] eGFR 152 >=60 mL/min/1. 73 m?? [facility] Comment: The eGFR was calculated using the CKD-EPI equation. As with all creatinine based estimates of kidney function, eGFR values calculated with the CKD-EPI equation are not accurate in patients with acute kidney failure, extremes of body mass or the acutely ill. [email or web address] Blood specimen (specimen) 02/20/2018 5:38 AM EDT 02/20/2018 5:45 AM EDT Narrative Resulting Agency Comment Spec In Lab Maldonado Salazar MD CHEMISTRY ORDERABLES [facility] [place] [address] * (ABNORMAL) Basic Metabolic Panel (non-fasting) (02/17/2018 11:29 AM EDT) Glucose 82 65 - 199 mg/dL [facility] Comment:Diabetes: >=200 mg/d L plus symptoms Blood Urea Nitrogen 17 10 - 20 mg/dL [facility] Creatinine 0.78(L) 0.80 - 1.50 mg/dL [facility] Sodium 144 135 - 145 mmol/L [facility] Potassium 4.0 3.5 - 5.0 mmol/L [facility] Comment: Please note: ??Patients with WBC >100,000 may have falsely elevated Potassium levels. ??For accurate Potassium quantification in these patients send serum separator tube (gold top) for subsequent determinations. ??Contact the Clinical Chemistry Laboratory if there are any questions. Chloride 105 98 - 107 mmol/L [facility] Carbon Dioxide 20(L) 22 - 31 mmol/L [facility] Anion Gap 19(H) 5 - 15 mmol/L [facility] Calcium 9.7 8.5 - 10.5 mg/dL [facility] Est Glomerular Filtration Rate 124 >=60 mL/min/1. 73 m?? [facility] Comment: The eGFR was calculated using the CKD-EPI equation. As with all creatinine based estimates of kidney function, eGFR values calculated with the CKD-EPI equation are not accurate in patients with acute kidney failure, extremes of body mass or the acutely ill. [email or web address] [place] eGFR 143 >=60 mL/min/1. 73 m?? [facility] Comment: The eGFR was calculated using the CKD-EPI equation. As with all creatinine based estimates of kidney function, eGFR values calculated with the CKD-EPI equation are not accurate in patients with acute kidney failure, extremes of body mass or the acutely ill. [email or web address] Blood specimen (specimen) 02/17/2018 11:29 AM EDT 02/17/2018 12:22 PM EDT Narrative Resulting Agency Comment Spec In Lab Maldonado Salazar MD CHEMISTRY ORDERABLES [facility] [place] [address] * Basic Metabolic Panel (non-fasting) (02/16/2018 1:55 PM EDT) Glucose 150 65 - 199 mg/dL [facility] Comment:Diabetes: >=200 mg/d L plus symptoms Blood Urea Nitrogen 20 10 - 20 mg/dL [facility] Creatinine 0.83 0.80 - 1.50 mg/dL [facility] Sodium 143 135 - 145 mmol/L [facility] Potassium 3.7 3.5 - 5.0 mmol/L [facility] Comment: Please note: ??Patients with WBC >100,000 may have falsely elevated Potassium levels. ??For accurate Potassium quantification in these patients send serum separator tube (gold top) for subsequent determinations. ??Contact the Clinical Chemistry Laboratory if there are any questions. Chloride 105 98 - 107 mmol/L [facility] Carbon Dioxide 24 22 - 31 mmol/L [facility] Anion Gap 14 5 - 15 mmol/L [facility] Calcium 9.3 8.5 - 10.5 mg/dL [facility] Est Glomerular Filtration Rate 121 >=60 mL/min/1. 73 m?? [facility] Comment: The eGFR was calculated using the CKD-EPI equation. As with all creatinine based estimates of kidney function, eGFR values calculated with the CKD-EPI equation are not accurate in patients with acute kidney failure, extremes of body mass or the acutely ill. [email or web address] [place] eGFR 140 >=60 mL/min/1. 73 m?? [facility] Comment: The eGFR was calculated using the CKD-EPI equation. As with all creatinine based estimates of kidney function, eGFR values calculated with the CKD-EPI equation are not accurate in patients with acute kidney failure, extremes of body mass or the acutely ill. [email or web address] [place] Blood specimen (specimen) 02/16/2018 1:55 PM EDT 02/16/2018 2:11 PM EDT Narrative Resulting Agency Comment Spec In Lab Maldonado Salazar MD CHEMISTRY ORDERABLES [facility] [place] [place] [address] * (ABNORMAL) Basic Metabolic Panel (non-fasting) (02/15/2018 9:37 AM EDT) Glucose 90 65 - 199 mg/dL [facility] Comment:Diabetes: >=200 mg/d L plus symptoms Blood Urea Nitrogen 16 10 - 20 mg/dL [facility] Creatinine 0.88 0.80 - 1.50 mg/dL [facility] Sodium 150(H) 135 - 145 mmol/L [facility] Potassium 4.0 3.5 - 5.0 mmol/L [facility] Comment: Please note: ??Patients with WBC >100,000 may have falsely elevated Potassium levels. ??For accurate Potassium quantification in these patients send serum separator tube (gold top) for subsequent determinations. ??Contact the Clinical Chemistry Laboratory if there are any questions. Chloride 111(H) 98 - 107 mmol/L [facility] Carbon Dioxide 21(L) 22 - 31 mmol/L [facility] Anion Gap 18(H) 5 - 15 mmol/L [facility] Calcium 9.9 8.5 - 10.5 mg/dL [facility] Est Glomerular Filtration Rate 118 >=60 mL/min/1. 73 m?? [facility] Comment: The eGFR was calculated using the CKD-EPI equation. As with all creatinine based estimates of kidney function, eGFR values calculated with the CKD-EPI equation are not accurate in patients with acute kidney failure, extremes of body mass or the acutely ill. [email or web address] eGFR 136 >=60 mL/min/1. 73 m?? [facility] Comment: The eGFR was calculated using the CKD-EPI equation. As with all creatinine based estimates of kidney function, eGFR values calculated with the CKD-EPI equation are not accurate in patients with acute kidney failure, extremes of body mass or the acutely ill. [email or web address] Blood specimen (specimen) 02/15/2018 9:37 AM EDT 02/15/2018 10:01 AM EDT Narrative Resulting Agency Comment Spec In Lab Maldonado Salazar MD CHEMISTRY ORDERABLES [facility] [place] [address] * (ABNORMAL) Basic Metabolic Panel (non-fasting) (02/14/2018 11:38 AM EDT) Glucose 261(H) 65 - 199 mg/dL [facility] Comment:Diabetes: >=200 mg/d L plus symptoms Blood Urea Nitrogen 14 10 - 20 mg/dL [facility] Creatinine 0.89 0.80 - 1.50 mg/dL [facility] Sodium 150(H) 135 - 145 mmol/L [facility] Potassium 4.1 3.5 - 5.0 mmol/L [facility] Comment: Please note: ??Patients with WBC >100,000 may have falsely elevated Potassium levels. ??For accurate Potassium quantification in these patients send serum separator tube (gold top) for subsequent determinations. ??Contact the Clinical Chemistry Laboratory if there are any questions. Chloride 112(H) 98 - 107 mmol/L [facility] Carbon Dioxide 22 22 - 31 mmol/L [facility] Anion Gap 16(H) 5 - 15 mmol/L [facility] Calcium 9.8 8.5 - 10.5 mg/dL [facility] Est Glomerular Filtration Rate 117 >=60 mL/min/1. 73 m?? [facility] Comment: The eGFR was calculated using the CKD-EPI equation. As with all creatinine based estimates of kidney function, eGFR values calculated with the CKD-EPI equation are not accurate in patients with acute kidney failure, extremes of body mass or the acutely ill. [email or web address] eGFR 136 >=60 mL/min/1. 73 m?? [facility] Comment: The eGFR was calculated using the CKD-EPI equation. As with all creatinine based estimates of kidney function, eGFR values calculated with the CKD-EPI equation are not accurate in patients with acute kidney failure, extremes of body mass or the acutely ill. [email or web address] Blood specimen (specimen) 02/14/2018 11:38 AM EDT 02/14/2018 11:44 AM EDT Narrative Resulting Agency Comment Spec In Lab Maldonado Salazar MD CHEMISTRY ORDERABLES [facility] [place] [address] * (ABNORMAL) Basic Metabolic Panel (non-fasting) (02/14/2018 6:10 AM EDT) Glucose 159 65 - 199 mg/dL [facility] Comment:Diabetes: >=200 mg/d L plus symptoms Blood Urea Nitrogen 15 10 - 20 mg/dL [facility] Creatinine 0.62(L) 0.80 - 1.50 mg/dL [facility] Sodium 151(H) 135 - 145 mmol/L [facility] Potassium 3.8 3.5 - 5.0 mmol/L [facility] Comment: Please note: ??Patients with WBC >100,000 may have falsely elevated Potassium levels. ??For accurate Potassium quantification in these patients send serum separator tube (gold top) for subsequent determinations. ??Contact the Clinical Chemistry Laboratory if there are any questions. Chloride 112(H) 98 - 107 mmol/L [facility] Carbon Dioxide 24 22 - 31 mmol/L [facility] Anion Gap 15 5 - 15 mmol/L [facility] Calcium 10.0 8.5 - 10.5 mg/dL [facility] Est Glomerular Filtration Rate 136 >=60 mL/min/1. 73 m?? [facility] Comment: The eGFR was calculated using the CKD-EPI equation. As with all creatinine based estimates of kidney function, eGFR values calculated with the CKD-EPI equation are not accurate in patients with acute kidney failure, extremes of body mass or the acutely ill. [email or web address] [place] [place] eGFR 158 >=60 mL/min/1. 73 m?? [facility] Comment: The eGFR was calculated using the CKD-EPI equation. As with all creatinine based estimates of kidney function, eGFR values calculated with the CKD-EPI equation are not accurate in patients with acute kidney failure, extremes of body mass or the acutely ill. [email or web address] Blood specimen (specimen) 02/14/2018 6:10 AM EDT 02/14/2018 6:26 AM EDT Narrative Resulting Agency Comment Spec In Lab Christopher Stanley MD CHEMISTRY ORDERABL ES [facility] [place] [place] [address] * (ABNORMAL) Basic Metabolic Panel (non-fasting) (02/11/2018 7:23 AM EDT) Glucose 91 65 - 199 mg/dL [facility] Comment:Diabetes: >=200 mg/d L plus symptoms Blood Urea Nitrogen 15 10 - 20 mg/dL [facility] Creatinine 0.64(L) 0.80 - 1.50 mg/dL [facility] Sodium 145 135 - 145 mmol/L [facility] Potassium 3.5 3.5 - 5.0 mmol/L [facility] Comment: Please note: ??Patients with WBC >100,000 may have falsely elevated Potassium levels. ??For accurate Potassium quantification in these patients send serum separator tube (gold top) for subsequent determinations. ??Contact the Clinical Chemistry Laboratory if there are any questions. Chloride 106 98 - 107 mmol/L [facility] Carbon Dioxide 23 22 - 31 mmol/L [facility] Anion Gap 16(H) 5 - 15 mmol/L [facility] Calcium 9.4 8.5 - 10.5 mg/dL [facility] Est Glomerular Filtration Rate 134 >=60 mL/min/1. 73 m?? [facility] Comment: The eGFR was calculated using the CKD-EPI equation. As with all creatinine based estimates of kidney function, eGFR values calculated with the CKD-EPI equation are not accurate in patients with acute kidney failure, extremes of body mass or the acutely ill. [email or web address] [place] eGFR 156 >=60 mL/min/1. 73 m?? [facility] Comment: The eGFR was calculated using the CKD-EPI equation. As with all creatinine based estimates of kidney function, eGFR values calculated with the CKD-EPI equation are not accurate in patients with acute kidney failure, extremes of body mass or the acutely ill. [email or web address] [place] [place] Blood specimen (specimen) 02/11/2018 7:23 AM EDT 02/11/2018 7:30 AM EDT Narrative Resulting Agency Comment Spec In Lab Christopher Stanley MD CHEMISTRY ORDERABL ES [facility] [place] [place] [address] * (ABNORMAL) Basic Metabolic Panel (non-fasting) (02/08/2018 5:53 AM EDT) Glucose 89 65 - 199 mg/dL [facility] Comment:Diabetes: >=200 mg/d L plus symptoms Blood Urea Nitrogen 17 10 - 20 mg/dL [facility] Creatinine 0.88 0.80 - 1.50 mg/dL [facility] Sodium 144 135 - 145 mmol/L [facility] Potassium 3.6 3.5 - 5.0 mmol/L [facility] Comment: Please note: ??Patients with WBC >100,000 may have falsely elevated Potassium levels. ??For accurate Potassium quantification in these patients send serum separator tube (gold top) for subsequent determinations. ??Contact the Clinical Chemistry Laboratory if there are any questions. Chloride 103 98 - 107 mmol/L [facility] Carbon Dioxide 24 22 - 31 mmol/L [facility] Anion Gap 17(H) 5 - 15 mmol/L [facility] Calcium 9.7 8.5 - 10.5 mg/dL [facility] Est Glomerular Filtration Rate 118 >=60 mL/min/1. 73 m?? [facility] Comment: The eGFR was calculated using the CKD-EPI equation. As with all creatinine based estimates of kidney function, eGFR values calculated with the CKD-EPI equation are not accurate in patients with acute kidney failure, extremes of body mass or the acutely ill. [email or web address] [place] eGFR 136 >=60 mL/min/1. 73 m?? [facility] Comment: The eGFR was calculated using the CKD-EPI equation. As with all creatinine based estimates of kidney function, eGFR values calculated with the CKD-EPI equation are not accurate in patients with acute kidney failure, extremes of body mass or the acutely ill. [email or web address] [place] Blood specimen (specimen) 02/08/2018 5:53 AM EDT 02/08/2018 6:41 AM EDT Narrative Resulting Agency Comment Spec In Lab Fran Gilliam MD CHEMISTRY ORDERABL ES Performing Organization Address [facility] Co de Phone Number [facility] [place] [address] * Lavender Tube HOLD (02/06/2018 11:17 AM EDT) Lavender Hold Sample in lab. [facility] Blood specimen (specimen) Venous Draw / Unknown 02/06/2018 11:17 AM EDT 02/06/2018 11:43 AM EDT Fran Gilliam MD HEMATOLOGY ORDERAB LES Performing Organization Address [facility]/ZIP Co de Phone Number [facility] [place] [address] * (ABNORMAL) Basic Metabolic Panel (non-fasting) (02/06/2018 11:17 AM EDT) Glucose 104 65 - 199 mg/dL [facility] Comment:Diabetes: >=200 mg/d L plus symptoms Blood Urea Nitrogen 15 10 - 20 mg/dL [facility] Creatinine 0.74(L) 0.80 - 1.50 mg/dL [facility] Sodium 143 135 - 145 mmol/L [facility] Potassium 3.9 3.5 - 5.0 mmol/L [facility] Comment: Please note: ??Patients with WBC >100,000 may have falsely elevated Potassium levels. ??For accurate Potassium quantification in these patients send serum separator tube (gold top) for subsequent determinations. ??Contact the Clinical Chemistry Laboratory if there are any questions. Chloride 102 98 - 107 mmol/L [facility] Carbon Dioxide 23 22 - 31 mmol/L [facility] Anion Gap 18(H) 5 - 15 mmol/L [facility] Calcium 9.6 8.5 - 10.5 mg/dL [facility] Est Glomerular Filtration Rate 126 >=60 mL/min/1. 73 m?? [facility] Comment: The eGFR was calculated using the CKD-EPI equation. As with all creatinine based estimates of kidney function, eGFR values calculated with the CKD-EPI equation are not accurate in patients with acute kidney failure, extremes of body mass or the acutely ill. [email or web address] [place] eGFR 147 >=60 mL/min/1. 73 m?? [facility] Comment: The eGFR was calculated using the CKD-EPI equation. As with all creatinine based estimates of kidney function, eGFR values calculated with the CKD-EPI equation are not accurate in patients with acute kidney failure, extremes of body mass or the acutely ill. [email or web address] [place] Blood specimen (specimen) 02/06/2018 11:17 AM EDT 02/06/2018 11:43 AM EDT Narrative Resulting Agency Comment Spec In Lab Fran Gilliam MD CHEMISTRY ORDERABL ES [facility] [place] [address] * (ABNORMAL) Basic Metabolic Panel (non-fasting) (02/04/2018 6:30 AM EDT) Glucose 93 65 - 199 mg/dL [facility] Comment:Diabetes: >=200 mg/d L plus symptoms Blood Urea Nitrogen 15 10 - 20 mg/dL [facility] Creatinine 0.70(L) 0.80 - 1.50 mg/dL [facility] Sodium 140 135 - 145 mmol/L [facility] Potassium 3.6 3.5 - 5.0 mmol/L [facility] Comment: Please note: ??Patients with WBC >100,000 may have falsely elevated Potassium levels. ??For accurate Potassium quantification in these patients send serum separator tube (gold top) for subsequent determinations. ??Contact the Clinical Chemistry Laboratory if there are any questions. Chloride 100 98 - 107 mmol/L [facility] Carbon Dioxide 23 22 - 31 mmol/L [facility] Anion Gap 17(H) 5 - 15 mmol/L [facility] Calcium 9.8 8.5 - 10.5 mg/dL [facility] Est Glomerular Filtration Rate 129 >=60 mL/min/1. 73 m?? [facility] Comment: The eGFR was calculated using the CKD-EPI equation. As with all creatinine based estimates of kidney function, eGFR values calculated with the CKD-EPI equation are not accurate in patients with acute kidney failure, extremes of body mass or the acutely ill. [email or web address] [place] eGFR 150 >=60 mL/min/1. 73 m?? [facility] Comment: The eGFR was calculated using the CKD-EPI equation. As with all creatinine based estimates of kidney function, eGFR values calculated with the CKD-EPI equation are not accurate in patients with acute kidney failure, extremes of body mass or the acutely ill. [email or web address] [place] Blood specimen (specimen) 02/04/2018 6:30 AM EDT 02/04/2018 6:44 AM EDT Narrative Resulting Agency Comment Spec In Lab Fran Gilliam MD CHEMISTRY ORDERABL ES [facility] [place] [address] * (ABNORMAL) Basic Metabolic Panel (non-fasting) (02/02/2018 9:34 AM EDT) Glucose 107 65 - 199 mg/dL [facility] Comment:Diabetes: >=200 mg/d L plus symptoms Blood Urea Nitrogen 13 10 - 20 mg/dL [facility] Creatinine 0.76(L) 0.80 - 1.50 mg/dL [facility] Sodium 144 135 - 145 mmol/L [facility] Potassium 3.6 3.5 - 5.0 mmol/L [facility] Comment: Please note: ??Patients with WBC >100,000 may have falsely elevated Potassium levels. ??For accurate Potassium quantification in these patients send serum separator tube (gold top) for subsequent determinations. ??Contact the Clinical Chemistry Laboratory if there are any questions. Chloride 104 98 - 107 mmol/L [facility] Carbon Dioxide 24 22 - 31 mmol/L [facility] Anion Gap 16(H) 5 - 15 mmol/L [facility] Calcium 9.8 8.5 - 10.5 mg/dL [facility] Est Glomerular Filtration Rate 125 >=60 mL/min/1. 73 m?? [facility] Comment: The eGFR was calculated using the CKD-EPI equation. As with all creatinine based estimates of kidney function, eGFR values calculated with the CKD-EPI equation are not accurate in patients with acute kidney failure, extremes of body mass or the acutely ill. [email or web address] eGFR 145 >=60 mL/min/1. 73 m?? [facility] Comment: The eGFR was calculated using the CKD-EPI equation. As with all creatinine based estimates of kidney function, eGFR values calculated with the CKD-EPI equation are not accurate in patients with acute kidney failure, extremes of body mass or the acutely ill. [email or web address] Blood specimen (specimen) 02/02/2018 9:34 AM EDT 02/02/2018 9:49 AM EDT Narrative Resulting Agency Comment Spec In Lab Noah Menard MD CHEMISTRY ORDERABLES [facility] [place] [address] * (ABNORMAL) Basic Metabolic Panel (non-fasting) (02/01/2018 11:47 AM EDT) Glucose 119 65 - 199 mg/dL [facility] Comment:Diabetes: >=200 mg/d L plus symptoms Blood Urea Nitrogen 13 10 - 20 mg/dL [facility] Creatinine 0.69(L) 0.80 - 1.50 mg/dL [facility] Sodium 144 135 - 145 mmol/L [facility] Potassium 3.9 3.5 - 5.0 mmol/L [facility] Comment: Please note: ??Patients with WBC >100,000 may have falsely elevated Potassium levels. ??For accurate Potassium quantification in these patients send serum separator tube (gold top) for subsequent determinations. ??Contact the Clinical Chemistry Laboratory if there are any questions. Chloride 106 98 - 107 mmol/L [facility] Carbon Dioxide 22 22 - 31 mmol/L [facility] Anion Gap 16(H) 5 - 15 mmol/L [facility] Calcium 9.7 8.5 - 10.5 mg/dL [facility] Est Glomerular Filtration Rate 130 >=60 mL/min/1. 73 m?? [facility] Comment: The eGFR was calculated using the CKD-EPI equation. As with all creatinine based estimates of kidney function, eGFR values calculated with the CKD-EPI equation are not accurate in patients with acute kidney failure, extremes of body mass or the acutely ill. [email or web address] [place] eGFR 151 >=60 mL/min/1. 73 m?? [facility] Comment: The eGFR was calculated using the CKD-EPI equation. As with all creatinine based estimates of kidney function, eGFR values calculated with the CKD-EPI equation are not accurate in patients with acute kidney failure, extremes of body mass or the acutely ill. [email or web address] [place] Blood specimen (specimen) 02/01/2018 11:47 AM EDT 02/01/2018 12:00 PM EDT Narrative Resulting Agency Comment Spec In Lab Noah Menard MD CHEMISTRY ORDERABLES [facility] [place] [address] * (ABNORMAL) Basic Metabolic Panel (non-fasting) (01/31/2018 6:31 AM EDT) Glucose 99 65 - 199 mg/dL [facility] Comment:Diabetes: >=200 mg/d L plus symptoms Blood Urea Nitrogen 16 10 - 20 mg/dL [facility] Creatinine 0.66(L) 0.80 - 1.50 mg/dL [facility] Sodium 142 135 - 145 mmol/L [facility] Potassium 3.8 3.5 - 5.0 mmol/L [facility] Comment: Please note: ??Patients with WBC >100,000 may have falsely elevated Potassium levels. ??For accurate Potassium quantification in these patients send serum separator tube (gold top) for subsequent determinations. ??Contact the Clinical Chemistry Laboratory if there are any questions. Chloride 105 98 - 107 mmol/L [facility] Carbon Dioxide 22 22 - 31 mmol/L [facility] Anion Gap 15 5 - 15 mmol/L [facility] Calcium 9.6 8.5 - 10.5 mg/dL [facility] Est Glomerular Filtration Rate 132 >=60 mL/min/1. 73 m?? [facility] Comment: The eGFR was calculated using the CKD-EPI equation. As with all creatinine based estimates of kidney function, eGFR values calculated with the CKD-EPI equation are not accurate in patients with acute kidney failure, extremes of body mass or the acutely ill. [email or web address] eGFR 154 >=60 mL/min/1. 73 m?? [facility] Comment: The eGFR was calculated using the CKD-EPI equation. As with all creatinine based estimates of kidney function, eGFR values calculated with the CKD-EPI equation are not accurate in patients with acute kidney failure, extremes of body mass or the acutely ill. [email or web address] [place] Blood specimen (specimen) 01/31/2018 6:31 AM EDT 01/31/2018 6:51 AM EDT Narrative Resulting Agency Comment Spec In Lab Noah Menard MD CHEMISTRY ORDERABLES [facility] [place] [address] * (ABNORMAL) Basic Metabolic Panel (non-fasting) (01/30/2018 4:49 AM EDT) Glucose 98 65 - 199 mg/dL [facility] Comment:Diabetes: >=200 mg/d L plus symptoms Blood Urea Nitrogen 12 10 - 20 mg/dL [facility] Creatinine 0.62(L) 0.80 - 1.50 mg/dL [facility] Sodium 140 135 - 145 mmol/L [facility] Potassium 3.8 3.5 - 5.0 mmol/L [facility] Comment: Please note: ??Patients with WBC >100,000 may have falsely elevated Potassium levels. ??For accurate Potassium quantification in these patients send serum separator tube (gold top) for subsequent determinations. ??Contact the Clinical Chemistry Laboratory if there are any questions. Chloride 104 98 - 107 mmol/L [facility] Carbon Dioxide 21(L) 22 - 31 mmol/L [facility] Anion Gap 15 5 - 15 mmol/L [facility] Calcium 9.9 8.5 - 10.5 mg/dL [facility] Est Glomerular Filtration Rate 136 >=60 mL/min/1. 73 m?? [facility] Comment: The eGFR was calculated using the CKD-EPI equation. As with all creatinine based estimates of kidney function, eGFR values calculated with the CKD-EPI equation are not accurate in patients with acute kidney failure, extremes of body mass or the acutely ill. [email or web address] eGFR 158 >=60 mL/min/1. 73 m?? [facility] Comment: The eGFR was calculated using the CKD-EPI equation. As with all creatinine based estimates of kidney function, eGFR values calculated with the CKD-EPI equation are not accurate in patients with acute kidney failure, extremes of body mass or the acutely ill. [email or web address] Blood specimen (specimen) 01/30/2018 4:49 AM EDT 01/30/2018 4:55 AM EDT Narrative Resulting Agency Comment Spec In Lab Noah Menard MD CHEMISTRY ORDERABLES [facility] [place] [place] [address] * (ABNORMAL) Basic Metabolic Panel (non-fasting) (01/29/2018 6:36 AM EDT) Glucose 113 65 - 199 mg/dL [facility] Comment:Diabetes: >=200 mg/d L plus symptoms Blood Urea Nitrogen 15 10 - 20 mg/dL [facility] Creatinine 0.72(L) 0.80 - 1.50 mg/dL [facility] Sodium 143 135 - 145 mmol/L [facility] Potassium 3.9 3.5 - 5.0 mmol/L [facility] Comment: Please note: ??Patients with WBC >100,000 may have falsely elevated Potassium levels. ??For accurate Potassium quantification in these patients send serum separator tube (gold top) for subsequent determinations. ??Contact the Clinical Chemistry Laboratory if there are any questions. Chloride 107 98 - 107 mmol/L [facility] Carbon Dioxide 21(L) 22 - 31 mmol/L [facility] Anion Gap 15 5 - 15 mmol/L [facility] Calcium 9.5 8.5 - 10.5 mg/dL [facility] Est Glomerular Filtration Rate 128 >=60 mL/min/1. 73 m?? [facility] Comment: The eGFR was calculated using the CKD-EPI equation. As with all creatinine based estimates of kidney function, eGFR values calculated with the CKD-EPI equation are not accurate in patients with acute kidney failure, extremes of body mass or the acutely ill. [email or web address] [place] CITY[place] eGFR 148 >=60 mL/min/1. 73 m?? [facility] Comment: The eGFR was calculated using the CKD-EPI equation. As with all creatinine based estimates of kidney function, eGFR values calculated with the CKD-EPI equation are not accurate in patients with acute kidney failure, extremes of body mass or the acutely ill. [email or web address] Blood specimen (specimen) 01/29/2018 6:36 AM EDT 01/29/2018 6:49 AM EDT Narrative Resulting Agency Comment Spec In Lab Noah Menard MD CHEMISTRY ORDERABLES [facility] [place] [address] * (ABNORMAL) Basic Metabolic Panel (non-fasting) (01/28/2018 8:26 AM EDT) Glucose 112 65 - 199 mg/dL [facility] Comment:Diabetes: >=200 mg/d L plus symptoms Blood Urea Nitrogen 22(H) 10 - 20 mg/dL [facility] Creatinine 1.04 0.80 - 1.50 mg/dL [facility] Sodium 142 135 - 145 mmol/L [facility] Potassium 3.4(L) 3.5 - 5.0 mmol/L [facility] Comment: Please note: ??Patients with WBC >100,000 may have falsely elevated Potassium levels. ??For accurate Potassium quantification in these patients send serum separator tube (gold top) for subsequent determinations. ??Contact the Clinical Chemistry Laboratory if there are any questions. Chloride 101 98 - 107 mmol/L [facility] Carbon Dioxide 23 22 - 31 mmol/L [facility] Anion Gap 18(H) 5 - 15 mmol/L [facility] Calcium 9.3 8.5 - 10.5 mg/dL [facility] Est Glomerular Filtration Rate 98 >=60 mL/min/1. 73 m?? [facility] Comment: The eGFR was calculated using the CKD-EPI equation. As with all creatinine based estimates of kidney function, eGFR values calculated with the CKD-EPI equation are not accurate in patients with acute kidney failure, extremes of body mass or the acutely ill. [email or web address] [place] eGFR 114 >=60 mL/min/1. 73 m?? [facility] Comment: The eGFR was calculated using the CKD-EPI equation. As with all creatinine based estimates of kidney function, eGFR values calculated with the CKD-EPI equation are not accurate in patients with acute kidney failure, extremes of body mass or the acutely ill. [email or web address] [place] Blood specimen (specimen) 01/28/2018 8:26 AM EDT 01/28/2018 8:31 AM EDT Narrative Resulting Agency Comment Spec In Lab Noah Menard MD CHEMISTRY ORDERABLES Performing Organization Address [facility]/ZIP Co de Phone Number [facility] [place] [address] * (ABNORMAL) Electrolytes panel (01/27/2018 6:24 AM EDT) Sodium 149(H) 135 - 145 mmol/L [facility] Potassium 3.8 3.5 - 5.0 mmol/L [facility] Comment: Please note: ??Patients with WBC >100,000 may have falsely elevated Potassium levels. ??For accurate Potassium quantification in these patients send serum separator tube (gold top) for subsequent determinations. ??Contact the Clinical Chemistry Laboratory if there are any questions. Chloride 109(H) 98 - 107 mmol/L [facility] Carbon Dioxide 25 22 - 31 mmol/L [facility] Anion Gap 15 5 - 15 mmol/L [facility] Blood specimen (specimen) 01/27/2018 6:24 AM EDT 01/27/2018 6:39 AM EDT Narrative Resulting Agency Comment Spec In Lab Crista Aguilar MD CHEMISTRY ORDERABLE S Performing Organization Address [facility]/ZIP Co de Phone Number [facility] [place] [address] * T4, free (01/26/2018 6:13 AM EDT) Free T4 0.95 0.93 - 1.70 ng/dL [facility] Blood specimen (specimen) 01/26/2018 6:13 AM EDT 01/26/2018 6:24 AM EDT Narrative Resulting Agency Comment Spec In Lab Crista Aguilar MD CHEMISTRY ORDERABLE S Performing Organization Address City/[facility]/ZIP Co de Phone Number [facility] [place] [address] * (ABNORMAL) Electrolytes panel (01/25/2018 6:28 AM EDT) Sodium 145 135 - 145 mmol/L [facility] Potassium 3.9 3.5 - 5.0 mmol/L [facility] Comment: Please note: ??Patients with WBC >100,000 may have falsely elevated Potassium levels. ??For accurate Potassium quantification in these patients send serum separator tube (gold top) for subsequent determinations. ??Contact the Clinical Chemistry Laboratory if there are any questions. Chloride 104 98 - 107 mmol/L [facility] Carbon Dioxide 25 22 - 31 mmol/L [facility] Anion Gap 16(H) 5 - 15 mmol/L [facility] Blood specimen (specimen) 01/25/2018 6:28 AM EDT 01/25/2018 6:41 AM EDT Narrative Resulting Agency Comment Spec In Lab Crista Aguilar MD CHEMISTRY ORDERABLE S [facility] [place] [address] * T4, free (01/23/2018 6:11 AM EDT) Free T4 0.94 0.93 - 1.70 ng/dL [facility] Blood specimen (specimen) Venous Draw / Unknown 01/23/2018 6:11 AM EDT 01/23/2018 6:42 AM EDT Narrative Resulting Agency Comment Spec In Lab Yadi Mccauley MD CHEMISTRY ORDERAB LES [facility] [place] [address] * (ABNORMAL) Electrolytes panel (01/23/2018 6:11 AM EDT) Sodium 144 135 - 145 mmol/L [facility] Potassium 3.9 3.5 - 5.0 mmol/L [facility] Comment: Please note: ??Patients with WBC >100,000 may have falsely elevated Potassium levels. ??For accurate Potassium quantification in these patients send serum separator tube (gold top) for subsequent determinations. ??Contact the Clinical Chemistry Laboratory if there are any questions. Chloride 106 98 - 107 mmol/L [facility] Carbon Dioxide 22 22 - 31 mmol/L [facility] Anion Gap 16(H) 5 - 15 mmol/L [facility] Blood specimen (specimen) 01/23/2018 6:11 AM EDT 01/23/2018 6:37 AM EDT Narrative Resulting Agency Comment Spec In Lab Crista Aguilar MD CHEMISTRY ORDERABLE S Performing Organization Address [facility]/ZIP Co de Phone Number [facility] [place] [address] * (ABNORMAL) Electrolytes panel (01/21/2018 4:34 AM EDT) Sodium 139 135 - 145 mmol/L [facility] Potassium 4.0 3.5 - 5.0 mmol/L [facility] Comment: Please note: ??Patients with WBC >100,000 may have falsely elevated Potassium levels. ??For accurate Potassium quantification in these patients send serum separator tube (gold top) for subsequent determinations. ??Contact the Clinical Chemistry Laboratory if there are any questions. Chloride 103 98 - 107 mmol/L [facility] Carbon Dioxide 20(L) 22 - 31 mmol/L [facility] Anion Gap 16(H) 5 - 15 mmol/L [facility] Blood specimen (specimen) 01/21/2018 4:34 AM EDT 01/21/2018 4:55 AM EDT Narrative Resulting Agency Comment Spec In Lab Crista Aguilar MD CHEMISTRY ORDERABLE S Performing Organization Address City/[facility]/ZIP Co de Phone Number [facility] [place] [address] * (ABNORMAL) Electrolytes panel (01/19/2018 7:21 AM EDT) Sodium 142 135 - 145 mmol/L [facility] Potassium 3.6 3.5 - 5.0 mmol/L [facility] Comment: Please note: ??Patients with WBC >100,000 may have falsely elevated Potassium levels. ??For accurate Potassium quantification in these patients send serum separator tube (gold top) for subsequent determinations. ??Contact the Clinical Chemistry Laboratory if there are any questions. Chloride 103 98 - 107 mmol/L [facility] Carbon Dioxide 23 22 - 31 mmol/L [facility] Anion Gap 16(H) 5 - 15 mmol/L [facility] Blood specimen (specimen) 01/19/2018 7:21 AM EDT 01/19/2018 7:26 AM EDT Narrative Resulting Agency Comment Spec In Lab Crista Aguilar MD CHEMISTRY ORDERABLE S [facility] [place] [address] * (ABNORMAL) Electrolytes panel (01/17/2018 5:17 AM EDT) Sodium 140 135 - 145 mmol/L [facility] Potassium 3.4(L) 3.5 - 5.0 mmol/L [facility] Comment: Please note: ??Patients with WBC >100,000 may have falsely elevated Potassium levels. ??For accurate Potassium quantification in these patients send serum separator tube (gold top) for subsequent determinations. ??Contact the Clinical Chemistry Laboratory if there are any questions. Chloride 102 98 - 107 mmol/L [facility] Carbon Dioxide 24 22 - 31 mmol/L [facility] Anion Gap 14 5 - 15 mmol/L [facility] Blood specimen (specimen) 01/17/2018 5:17 AM EDT 01/17/2018 5:31 AM EDT Narrative Resulting Agency Comment Spec In Lab Crista Aguilar MD CHEMISTRY ORDERABLE S Performing Organization Address City/[facility]/[place] [address] * (ABNORMAL) Differential, Automated (01/16/2018 5:02 AM EDT) Neutrophil % 40.0 % [facility] Neutrophil Absolute 2.01 1.70 - 6.10 x10(3)/mc L [facility] Lymph % 43.8 % [facility] Lymphocytes Abs 2.2 0.9 - 3.2 x10(3)/ L [facility] Monocyte % 10.2 % [facility] Monocyte Abs 0.5 0.3 - 0.9 x10(3)/ L [facility] Eos % 4.2 % [facility] Eosinophils Abs 0.2 0.0 - 0.4 x10(3)/ L [facility] Basophil % 0.8 % [facility] Baso Absolute 0.0 0.0 - 0.1 x10(3)/ L [facility] Immature Gran % 1.00 % [facility] Comment: Immature granulocytes(IG's)percentage and absolute count will include metamyelocytes, myelocytes, and promyelocytes. Blood smears from CBCs yielding IG's will be scanned manually for concordance. If this scan disagrees with the automated IG or if promyelocytes are noted, a manual differential will be performed. Immature Gran Absolute 0.05(H) 0.00 - 0.04 x10(3)/mc L [facility] Blood specimen (specimen) 01/16/2018 5:02 AM EDT 01/16/2018 5:21 AM EDT Narrative Resulting Agency Comment Spec In Lab Crista Aguilar MD HEMATOLOGY ORDERABL ES Performing Organization Address City/[facility]/ZIP Co de Phone Number [facility] [place] [address] * (ABNORMAL) Hemogram (01/16/2018 5:02 AM EDT) [facility] White Blood Cell 5.0 4.0 - 9.5 x10(3)/[facility] Red Blood Cell 4.81 4.58 - 5.54 x10(6)/[facility] Hemoglobin 11.2(L) 13.7 - 16.5 gm/dL [facility] Hematocrit 35.5(L) 40.5 - 48.5 % [facility] Mean Cell Volume 73.8(L) 82.9 - 93.1 fL [facility] Mean Cell Hemoglobin 23.3(L) 27.5 - 32.1 pg [facility] Mean Cell Hemoglobin Concentration 31.5(L) 32.0 - 35.7 gm/dL [facility] Platelet 298 145 - 357 x10(3)/[facility] RDW Standard Deviation 45.8(H) 36.0 - 45.0 [facility] RDW coefficient of variation 17.2(H) 11.4 - 13.8 % [facility] Mean Platelet Volume 10.6 7.6 - 12.9 [facility] NRBC% auto 0.0 % [facility] NRBC Absolute 0.000 0.000 - 0.000 x10(3)/[facility] Blood specimen (specimen) 01/16/2018 5:02 AM EDT 01/16/2018 5:21 AM EDT Narrative Resulting Agency Comment Spec In Lab Crista Aguilar MD HEMATOLOGY ORDERABL ES [facility] [place] [address] * (ABNORMAL) Basic Metabolic Panel (non-fasting) (01/16/2018 5:02 AM EDT) Glucose 78 65 - 199 mg/dL [facility] Comment:Diabetes: >=200 mg/d L plus symptoms Blood Urea Nitrogen 17 10 - 20 mg/dL [facility] Creatinine 0.83 0.80 - 1.50 mg/dL [facility] Sodium 146(H) 135 - 145 mmol/L [facility] Potassium 3.7 3.5 - 5.0 mmol/L [facility] Comment: Please note: ??Patients with WBC >100,000 may have falsely elevated Potassium levels. ??For accurate Potassium quantification in these patients send serum separator tube (gold top) for subsequent determinations. ??Contact the Clinical Chemistry Laboratory if there are any questions. Chloride 108(H) 98 - 107 mmol/L [facility] Carbon Dioxide 23 22 - 31 mmol/L [facility] Anion Gap 15 5 - 15 mmol/L [facility] Calcium 10.1 8.5 - 10.5 mg/dL [facility] Est Glomerular Filtration Rate 121 >=60 mL/min/1. 73 m?? [facility] Comment: The eGFR was calculated using the CKD-EPI equation. As with all creatinine based estimates of kidney function, eGFR values calculated with the CKD-EPI equation are not accurate in patients with acute kidney failure, extremes of body mass or the acutely ill. [email or web address] [place] eGFR 140 >=60 mL/min/1. 73 m?? [facility] Comment: The eGFR was calculated using the CKD-EPI equation. As with all creatinine based estimates of kidney function, eGFR values calculated with the CKD-EPI equation are not accurate in patients with acute kidney failure, extremes of body mass or the acutely ill. [email or web address] [place] Blood specimen (specimen) 01/16/2018 5:02 AM EDT 01/16/2018 5:21 AM EDT Narrative Resulting Agency Comment Spec In Lab Crista A Jeff MD CHEMISTRY ORDERABLE S Performing Organization Address [facility] Co de Phone Number [facility] [place] [address] * (ABNORMAL) Electrolytes panel (01/15/2018 6:12 AM EDT) Sodium 148(H) 135 - 145 mmol/L [facility] Potassium Not Perf 3.5 - 5.0 [facility] Comment: Unable to quantitate due [...] questions. Chloride 110(H) 98 - 107 mmol/L [facility] Carbon Dioxide 23 22 - 31 mmol/L [facility] Anion Gap 15 5 - 15 mmol/L [facility] Blood specimen (specimen) 01/15/2018 6:12 AM EDT 01/15/2018 6:26 AM EDT Narrative Resulting Agency Comment Spec In Lab Crista Aguilar MD CHEMISTRY ORDERABLE S Performing Organization Address [facility] Co de Phone Number [facility] [place] [address] * Electrolytes panel (01/13/2018 6:23 AM EDT) Sodium 142 135 - 145 mmol/L [facility] Potassium 3.6 3.5 - 5.0 mmol/L [facility] Comment: Please note: ??Patients with WBC >100,000 may have falsely elevated Potassium levels. ??For accurate Potassium quantification in these patients send serum separator tube (gold top) for subsequent determinations. ??Contact the Clinical Chemistry Laboratory if there are any questions. Chloride 106 98 - 107 mmol/L [facility] Carbon Dioxide 23 22 - 31 mmol/L [facility] Anion Gap 13 5 - 15 mmol/L [facility] Blood specimen (specimen) 01/13/2018 6:23 AM EDT 01/13/2018 6:32 AM EDT Narrative Resulting Agency Comment Spec In Lab Maldonado Salazar MD CHEMISTRY ORDERABLES Performing Organization Address City/[facility]/ZIP Co de Phone Number [facility] [place] [address] * T3 Total (01/12/2018 7:53 AM EDT) T3 Total 97 75 - 170 ng/dL [facility] Blood specimen (specimen) Venous Draw / Unknown 01/12/2018 7:53 AM EDT 01/12/2018 9:37 AM EDT Narrative Resulting Agency Comment Spec In Lab Guerrero Tillman MD CHEMISTRY ORDE RABLES Performing Organization Address City/[facility]/ZIP Co de Phone Number [facility] [place] [address] * (ABNORMAL) Electrolytes panel (01/12/2018 7:53 AM EDT) Pathologist [facility] Sodium 143 135 - 145 mmol/L [facility] Potassium 3.7 3.5 - 5.0 mmol/L [facility] Comment: Please note: ??Patients with WBC >100,000 may have falsely elevated Potassium levels. ??For accurate Potassium quantification in these patients send serum separator tube (gold top) for subsequent determinations. ??Contact the Clinical Chemistry Laboratory if there are any questions. Chloride 102 98 - 107 mmol/L [facility] Carbon Dioxide 23 22 - 31 mmol/L [facility] Anion Gap 18(H) 5 - 15 mmol/L [facility] Blood specimen (specimen) 01/12/2018 7:53 AM EDT 01/12/2018 8:10 AM EDT Narrative Resulting Agency Comment Spec In Lab Maldonado Salazar MD CHEMISTRY ORDERABLES Performing Organization Address [facility] Co de Phone Number [facility] [place] [address] * (ABNORMAL) Electrolytes panel (01/11/2018 7:22 AM EDT) Sodium 141 135 - 145 mmol/L [facility] Potassium 3.7 3.5 - 5.0 mmol/L [facility] Comment: Please note: ??Patients with WBC >100,000 may have falsely elevated Potassium levels. ??For accurate Potassium quantification in these patients send serum separator tube (gold top) for subsequent determinations. ??Contact the Clinical Chemistry Laboratory if there are any questions. Chloride 101 98 - 107 mmol/L [facility] Comment:result rechecked-sb Carbon Dioxide 24 22 - 31 mmol/L [facility] Anion Gap 16(H) 5 - 15 mmol/L [facility] Blood specimen (specimen) 01/11/2018 7:22 AM EDT 01/11/2018 7:31 AM EDT Narrative Resulting Agency Comment Spec In Lab Maldonado Salazar MD CHEMISTRY ORDERABLES Performing Organization Address [facility] Co de Phone Number [facility] [place] [address] * (ABNORMAL) T4, free (01/11/2018 7:22 AM EDT) Free T4 0.74(L) 0.93 - 1.70 ng/dL [facility] Blood specimen (specimen) 01/11/2018 7:22 AM EDT 01/11/2018 7:31 AM EDT Narrative Resulting Agency Comment Spec In Lab Crista Aguilar MD CHEMISTRY ORDERABLE S Performing Organization Address City/[facility]/ZIP Co de Phone Number [facility] [place] [address] * (ABNORMAL) Electrolytes panel (01/10/2018 5:10 AM EDT) Sodium 148(H) 135 - 145 mmol/L [facility] Potassium 3.7 3.5 - 5.0 mmol/L [facility] Comment: Please note: ??Patients with WBC >100,000 may have falsely elevated Potassium levels. ??For accurate Potassium quantification in these patients send serum separator tube (gold top) for subsequent determinations. ??Contact the Clinical Chemistry Laboratory if there are any questions. Chloride 106 98 - 107 mmol/L [facility] Carbon Dioxide 24 22 - 31 mmol/L [facility] Anion Gap 18(H) 5 - 15 mmol/L [facility] Blood specimen (specimen) 01/10/2018 5:10 AM EDT 01/10/2018 5:15 AM EDT Narrative Resulting Agency Comment Spec In Lab Maldonado Salazar MD CHEMISTRY ORDERABLES [facility] [place] [address] * (ABNORMAL) Electrolytes panel (01/09/2018 5:06 AM EDT) Sodium 149(H) 135 - 145 mmol/L [facility] Potassium 3.8 3.5 - 5.0 mmol/L [facility] Comment: Please note: ??Patients with WBC >100,000 may have falsely elevated Potassium levels. ??For accurate Potassium quantification in these patients send serum separator tube (gold top) for subsequent determinations. ??Contact the Clinical Chemistry Laboratory if there are any questions. Chloride 110(H) 98 - 107 mmol/L [facility] Carbon Dioxide 25 22 - 31 mmol/L [facility] Anion Gap 14 5 - 15 mmol/L [facility] Blood specimen (specimen) 01/09/2018 5:06 AM EDT 01/09/2018 5:24 AM EDT Narrative Resulting Agency Comment Spec In Lab Maldonado Salazar MD CHEMISTRY ORDERABLES Performing Organization Address [facility] Co de Phone Number [facility] [place] [address] * (ABNORMAL) Electrolytes panel (01/08/2018 6:07 AM EDT) Sodium 149(H) 135 - 145 mmol/L [facility] LABORATORY Potassium 3.7 3.5 - 5.0 mmol/L [facility] Comment: Please note: ??Patients with WBC >100,000 may have falsely elevated Potassium levels. ??For accurate Potassium quantification in these patients send serum separator tube (gold top) for subsequent determinations. ??Contact the Clinical Chemistry Laboratory if there are any questions. Chloride 111(H) 98 - 107 mmol/L [facility] Carbon Dioxide 24 22 - 31 mmol/L [facility] Anion Gap 14 5 - 15 mmol/L [facility] Blood specimen (specimen) 01/08/2018 6:07 AM EDT 01/08/2018 6:14 AM EDT Narrative Resulting Agency Comment Spec In Lab Maldonado Salazar MD CHEMISTRY ORDERABLES Performing Organization Address [facility] Co de Phone Number [facility] [place] [place] [address] * (ABNORMAL) Electrolytes panel (01/07/2018 7:01 AM EDT) Sodium 148(H) 135 - 145 mmol/L [facility] Comment:Specimen ultracentri fuged due to gross lipemia Potassium Not Perf 3.5 - 5.0 [facility] Comment: Unable to quantitate due to sample hemolysis. ??Sample redraw suggested. Called Hafsa 01/07/18 08:35 ms Please note: ??Patients with WBC >100,000 may have falsely elevated Potassium levels. ??For accurate Potassium quantification in these patients send serum separator tube (gold top) for subsequent determinations. ??Contact the Clinical Chemistry Laboratory if there are any questions. Chloride 112(H) 98 - 107 mmol/L [facility] Comment:Specimen ultracentri fuged due to gross lipemia Carbon Dioxide 26 22 - 31 mmol/L [facility] Anion Gap 10 5 - 15 mmol/L [facility] Blood specimen (specimen) 01/07/2018 7:01 AM EDT 01/07/2018 7:16 AM EDT Narrative Resulting Agency Comment Spec In Lab Maldonado Salazar MD CHEMISTRY ORDERABLES Performing Organization Address [facility] Co de Phone Number [facility] [place] [address] * (ABNORMAL) Electrolytes panel (01/06/2018 11:21 PM EDT) Sodium 148(H) 135 - 145 mmol/L [facility] Potassium Not Perf 3.5 - 5.0 [facility] Comment: Specimen hemolyzed. Called by: [facility], Read back by: Denisse Lebron, Date/Time:01/07/18 00:15. Please note: ??Patients with WBC >100,000 may have falsely elevated Potassium levels. ??For accurate Potassium quantification in these patients send serum separator tube (gold top) for subsequent determinations. ??Contact the Clinical Chemistry Laboratory if there are any questions. Chloride 109(H) 98 - 107 mmol/L [facility] Carbon Dioxide 24 22 - 31 mmol/L [facility] Anion Gap 15 5 - 15 mmol/L [facility] Blood specimen (specimen) 01/06/2018 11:21 PM EDT 01/06/2018 11:34 PM EDT Narrative Resulting Agency Comment Spec In Lab Maldonado Salazar MD CHEMISTRY ORDERABLES Performing Organization Address [facility] Co de Phone Number [facility] [place] [address] * (ABNORMAL) Electrolytes panel (01/06/2018 6:47 AM EDT) Sodium 149(H) 135 - 145 mmol/L [facility] Potassium Not Perf 3.5 - 5.0 [facility] Comment: Called by: [facility], Read back by: Sarika Michael, Date/Time:01/06/18 08:08. Please note: ??Patients with WBC >100,000 may have falsely elevated Potassium levels. ??For accurate Potassium quantification in these patients send serum separator tube (gold top) for subsequent determinations. ??Contact the Clinical Chemistry Laboratory if there are any questions. Chloride 110(H) 98 - 107 mmol/L [facility] Carbon Dioxide 23 22 - 31 mmol/L [facility] Anion Gap 16(H) 5 - 15 mmol/L [facility] Blood specimen (specimen) 01/06/2018 6:47 AM EDT 01/06/2018 7:10 AM EDT Narrative Resulting Agency Comment Spec In Lab Maldonado Salazar MD CHEMISTRY ORDERABLES [facility] [place] [address] * (ABNORMAL) Electrolytes panel (01/05/2018 5:48 PM EDT) Sodium 146(H) 135 - 145 mmol/L [facility] Potassium 4.0 3.5 - 5.0 mmol/L [facility] Comment: Please note: ??Patients with WBC >100,000 may have falsely elevated Potassium levels. ??For accurate Potassium quantification in these patients send serum separator tube (gold top) for subsequent determinations. ??Contact the Clinical Chemistry Laboratory if there are any questions. Chloride 107 98 - 107 mmol/L [facility] Carbon Dioxide 22 22 - 31 mmol/L [facility] Anion Gap 17(H) 5 - 15 mmol/L [facility] Blood specimen (specimen) 01/05/2018 5:48 PM EDT 01/05/2018 6:03 PM EDT Narrative Resulting Agency Comment Spec In Lab Maldonado Salazar MD CHEMISTRY ORDERABLES Performing Organization Address [facility] Co de Phone Number [facility] [place] [address] * (ABNORMAL) Electrolytes panel (01/05/2018 5:38 AM EDT) Sodium 151(H) 135 - 145 mmol/L [facility] Comment:result rechecked-jt Potassium 3.5 3.5 - 5.0 mmol/L [facility] Comment: Please note: ??Patients with WBC >100,000 may have falsely elevated Potassium levels. ??For accurate Potassium quantification in these patients send serum separator tube (gold top) for subsequent determinations. ??Contact the Clinical Chemistry Laboratory if there are any questions. Chloride 114(H) 98 - 107 mmol/L [facility] Comment:result rechecked-jt Carbon Dioxide 23 22 - 31 mmol/L [facility] Anion Gap 14 5 - 15 mmol/L [facility] Blood specimen (specimen) 01/05/2018 5:38 AM EDT 01/05/2018 5:56 AM EDT Narrative Resulting Agency Comment Spec In Lab Maldonado Salazar MD CHEMISTRY ORDERABLES Performing Organization Address [facility] Co de Phone Number [facility] [place] [address] * (ABNORMAL) Electrolytes panel (01/04/2018 7:08 AM EDT) Sodium 146(H) 135 - 145 mmol/L [facility] Comment:Specimen ultracentri fuged due to gross lipemia Potassium 3.2(L) 3.5 - 5.0 mmol/L [facility] Comment: Please note: ??Patients with WBC >100,000 may have falsely elevated Potassium levels. ??For accurate Potassium quantification in these patients send serum separator tube (gold top) for subsequent determinations. ??Contact the Clinical Chemistry Laboratory if there are any questions. Chloride 102 98 - 107 mmol/L [facility] Carbon Dioxide 25 22 - 31 mmol/L [facility] Anion Gap 19(H) 5 - 15 mmol/L [facility] Blood specimen (specimen) 01/04/2018 7:08 AM EDT 01/04/2018 7:16 AM EDT Narrative Resulting Agency Comment Spec In Lab Sherri Hanson MD CHEMISTRY ORDERABL ES Performing Organization Address [facility] Co de Phone Number [facility] [place] [address] * Electrolytes panel (01/04/2018 3:14 AM EDT) Sodium 140 135 - 145 mmol/L [facility] Potassium 3.6 3.5 - 5.0 mmol/L [facility] Comment: Please note: ??Patients with WBC >100,000 may have falsely elevated Potassium levels. ??For accurate Potassium quantification in these patients send serum separator tube (gold top) for subsequent determinations. ??Contact the Clinical Chemistry Laboratory if there are any questions. Chloride 103 98 - 107 mmol/L [facility] Carbon Dioxide 23 22 - 31 mmol/L [facility] Anion Gap 14 5 - 15 mmol/L [facility] Blood specimen (specimen) 01/04/2018 3:14 AM EDT 01/04/2018 3:19 AM EDT Narrative Resulting Agency Comment Spec In Lab Sherri Hanson MD CHEMISTRY ORDERABL ES Performing Organization Address [facility]/ZIP Co de Phone Number [facility] [place] [address] * (ABNORMAL) Electrolytes panel (01/03/2018 10:48 PM EDT) Sodium 142 135 - 145 mmol/L [facility] Potassium 3.4(L) 3.5 - 5.0 mmol/L [facility] Comment: Please note: ??Patients with WBC >100,000 may have falsely elevated Potassium levels. ??For accurate Potassium quantification in these patients send serum separator tube (gold top) for subsequent determinations. ??Contact the Clinical Chemistry Laboratory if there are any questions. Chloride 102 98 - 107 mmol/L [facility] Carbon Dioxide 25 22 - 31 mmol/L [facility] Anion Gap 15 5 - 15 mmol/L [facility] Blood specimen (specimen) 01/03/2018 10:48 PM EDT 01/03/2018 11:09 PM EDT Narrative Resulting Agency Comment Spec In Lab Sherri Hanson MD CHEMISTRY ORDERABL ES Performing Organization Address [facility] Co de Phone Number [facility] [place] [address] * (ABNORMAL) Electrolytes panel (01/03/2018 1:32 PM EDT) Sodium 139 135 - 145 mmol/L [facility] Potassium 3.8 3.5 - 5.0 mmol/L [facility] Comment: Please note: ??Patients with WBC >100,000 may have falsely elevated Potassium levels. ??For accurate Potassium quantification in these patients send serum separator tube (gold top) for subsequent determinations. ??Contact the Clinical Chemistry Laboratory if there are any questions. Chloride 97(L) 98 - 107 mmol/L [facility] Carbon Dioxide 25 22 - 31 mmol/L [facility] Anion Gap 17(H) 5 - 15 mmol/L [facility] Blood specimen (specimen) 01/03/2018 1:32 PM EDT 01/03/2018 1:37 PM EDT Narrative Resulting Agency Comment Spec In Lab Maldonado Salazar MD CHEMISTRY ORDERABLES Performing Organization Address [facility]/ZIP Co de Phone Number [facility] [place] [address] * (ABNORMAL) Electrolytes panel (01/03/2018 8:38 AM EDT) Sodium 145 135 - 145 mmol/L [facility] Potassium 3.7 3.5 - 5.0 mmol/L [facility] Comment: Please note: ??Patients with WBC >100,000 may have falsely elevated Potassium levels. ??For accurate Potassium quantification in these patients send serum separator tube (gold top) for subsequent determinations. ??Contact the Clinical Chemistry Laboratory if there are any questions. Chloride 105 98 - 107 mmol/L [facility] Carbon Dioxide 23 22 - 31 mmol/L [facility] Anion Gap 17(H) 5 - 15 mmol/L [facility] Blood specimen (specimen) 01/03/2018 8:38 AM EDT 01/03/2018 8:56 AM EDT Narrative Resulting Agency Comment Spec In Lab Fran Gilliam MD CHEMISTRY ORDERABL ES Performing Organization Address [facility] [place] [address] * (ABNORMAL) Electrolytes panel (01/02/2018 8:55 AM EDT) Sodium 155(H) 135 - 145 mmol/L [facility] Potassium 3.8 3.5 - 5.0 mmol/L [facility] Comment: Please note: ??Patients with WBC >100,000 may have falsely elevated Potassium levels. ??For accurate Potassium quantification in these patients send serum separator tube (gold top) for subsequent determinations. ??Contact the Clinical Chemistry Laboratory if there are any questions. Chloride 113(H) 98 - 107 mmol/L [facility] Carbon Dioxide 27 22 - 31 mmol/L [facility] Anion Gap 15 5 - 15 mmol/L [facility] Blood specimen (specimen) 01/02/2018 8:55 AM EDT 01/02/2018 9:04 AM EDT Narrative Resulting Agency Comment Spec In Lab Fran Gilliam MD CHEMISTRY ORDERABL ES Performing Organization Address [facility]/ZIP Co de Phone Number [facility] [place] [address] * (ABNORMAL) Electrolytes panel (12/30/2017 8:24 AM EDT) Sodium 147(H) 135 - 145 mmol/L [facility] Potassium 3.9 3.5 - 5.0 mmol/L [facility] Comment: Please note: ??Patients with WBC >100,000 may have falsely elevated Potassium levels. ??For accurate Potassium quantification in these patients send serum separator tube (gold top) for subsequent determinations. ??Contact the Clinical Chemistry Laboratory if there are any questions. Chloride 108(H) 98 - 107 mmol/L [facility] Carbon Dioxide 25 22 - 31 mmol/L [facility] Anion Gap 14 5 - 15 mmol/L [facility] Blood specimen (specimen) 12/30/2017 8:24 AM EDT 12/30/2017 8:37 AM EDT Narrative Resulting Agency Comment Spec In Lab Fran Gilliam MD CHEMISTRY ORDERABL ES [facility] [place] [address] * (ABNORMAL) Electrolytes panel (12/29/2017 3:57 AM EDT) Sodium 142 135 - 145 mmol/L [facility] Potassium 4.1 3.5 - 5.0 mmol/L [facility] Comment: Please note: ??Patients with WBC >100,000 may have falsely elevated Potassium levels. ??For accurate Potassium quantification in these patients send serum separator tube (gold top) for subsequent determinations. ??Contact the Clinical Chemistry Laboratory if there are any questions. Chloride 103 98 - 107 mmol/L [facility] Carbon Dioxide 22 22 - 31 mmol/L [facility] Anion Gap 17(H) 5 - 15 mmol/L [facility] Blood specimen (specimen) 12/29/2017 3:57 AM EDT 12/29/2017 4:03 AM EDT Narrative Resulting Agency Comment Spec In Lab Fran Gilliam MD CHEMISTRY ORDERABL ES Performing Organization Address [facility] Co de Phone Number [facility] [place] [address] * (ABNORMAL) Electrolytes panel (12/28/2017 8:27 PM EDT) Sodium 145 135 - 145 mmol/L [facility] Comment:Specimen ultracentri fuged due to gross lipemia Potassium 4.2 3.5 - 5.0 mmol/L [facility] Comment: Please note: ??Patients with WBC >100,000 may have falsely elevated Potassium levels. ??For accurate Potassium quantification in these patients send serum separator tube (gold top) for subsequent determinations. ??Contact the Clinical Chemistry Laboratory if there are any questions. Chloride 104 98 - 107 mmol/L [facility] Carbon Dioxide 24 22 - 31 mmol/L [facility] Anion Gap 17(H) 5 - 15 mmol/L [facility] Blood specimen (specimen) 12/28/2017 8:27 PM EDT 12/28/2017 8:32 PM EDT Narrative Resulting Agency Comment Spec In Lab Fran Gilliam MD CHEMISTRY ORDERABL ES Performing Organization Address [facility] Co de Phone Number [facility] [place] [address] * (ABNORMAL) Electrolytes panel (12/28/2017 5:08 AM EDT) Sodium 148(H) 135 - 145 mmol/L [facility] Potassium 3.9 3.5 - 5.0 mmol/L [facility] Comment: Please note: ??Patients with WBC >100,000 may have falsely elevated Potassium levels. ??For accurate Potassium quantification in these patients send serum separator tube (gold top) for subsequent determinations. ??Contact the Clinical Chemistry Laboratory if there are any questions. Chloride 105 98 - 107 mmol/L [facility] Carbon Dioxide 25 22 - 31 mmol/L [facility] Anion Gap 18(H) 5 - 15 mmol/L [facility] Blood specimen (specimen) 12/28/2017 5:08 AM EDT 12/28/2017 5:26 AM EDT Narrative Resulting Agency Comment Spec In Lab Fran Gilliam MD CHEMISTRY ORDERABL ES [facility] [place] [address] * (ABNORMAL) Basic Metabolic Panel (non-fasting) (12/28/2017 12:04 AM EDT) Glucose 114 65 - 199 mg/dL [facility] Comment:Diabetes: >=200 mg/d L plus symptoms Blood Urea Nitrogen 22(H) 10 - 20 mg/dL [facility] Creatinine 0.90 0.80 - 1.50 mg/dL [facility] Sodium 146(H) 135 - 145 mmol/L [facility] Comment:result rechecked-jt Potassium 3.6 3.5 - 5.0 mmol/L [facility] Comment: Please note: ??Patients with WBC >100,000 may have falsely elevated Potassium levels. ??For accurate Potassium quantification in these patients send serum separator tube (gold top) for subsequent determinations. ??Contact the Clinical Chemistry Laboratory if there are any questions. Chloride 104 98 - 107 mmol/L [facility] Comment:result rechecked-jt Carbon Dioxide 25 22 - 31 mmol/L [facility] Anion Gap 17(H) 5 - 15 mmol/L [facility] Calcium 9.4 8.5 - 10.5 mg/dL [facility] Est Glomerular Filtration Rate 117 >=60 mL/min/1. 73 m?? [facility] Comment: The eGFR was calculated using the CKD-EPI equation. As with all creatinine based estimates of kidney function, eGFR values calculated with the CKD-EPI equation are not accurate in patients with acute kidney failure, extremes of body mass or the acutely ill. [email or web address] – [place] eGFR 135 >=60 mL/min/1. 73 m?? [facility] Comment: The eGFR was calculated using the CKD-EPI equation. As with all creatinine based estimates of kidney function, eGFR values calculated with the CKD-EPI equation are not accurate in patients with acute kidney failure, extremes of body mass or the acutely ill. [email or web address] [place] Blood specimen (specimen) 12/28/2017 12:04 AM EDT 12/28/2017 12:10 AM EDT Narrative Resulting Agency Comment Spec In Lab Fran Gilliam MD CHEMISTRY ORDERABL ES Performing Organization Address [facility] Co de Phone Number [facility] [place] [address] * (ABNORMAL) Sodium (12/26/2017 10:23 PM EDT) Sodium 147(H) 135 - 145 mmol/L [facility] Blood specimen (specimen) 12/26/2017 10:23 PM EDT 12/26/2017 10:29 PM EDT Narrative Resulting Agency Comment Spec In Lab José Miguel Maher MD CHEMISTRY ORDERABLES Performing Organization Address [facility] Co de Phone Number [facility] [place] [address] * (ABNORMAL) Sodium (12/26/2017 10:03 AM EDT) Sodium 155(H) 135 - 145 mmol/L [facility] Blood specimen (specimen) 12/26/2017 10:03 AM EDT 12/26/2017 10:11 AM EDT Narrative Resulting Agency Comment Spec In Lab José Miguel Maher MD CHEMISTRY ORDERABLES [facility] [place] [address] * (ABNORMAL) Sodium (12/26/2017 5:11 AM EDT) Sodium 154(H) 135 - 145 mmol/L [facility] Blood specimen (specimen) 12/26/2017 5:11 AM EDT 12/26/2017 5:19 AM EDT Narrative Resulting Agency Comment Spec In Lab José Miguel Maher MD CHEMISTRY ORDERABLES Performing Organization Address City/[facility]/ZIP Co de Phone Number [facility] [place] [address] * XR Knee 3 Views Right (12/25/2017 [...] 5:50 AM EDT) Neutrophil % 43.3 % [facility] Neutrophil Absolute 2.14 1.70 - 6.10 x10(3)/mcL [facility] Lymph % 38.7 % [facility] Lymphocytes Abs 1.9 0.9 - 3.2 x10(3)/[facility] Monocyte % 9.3 % [facility] Monocyte Abs 0.5 0.3 - 0.9 x10(3)/[facility] Eos % 7.7 % [facility] Eosinophils Abs 0.4 0.0 - 0.4 x10(3)/[facility] Basophil % 0.6 % [facility] Baso Absolute 0.0 0.0 - 0.1 x10(3)/[facility] Immature Gran % 0.40 % [facility] Comment: Immature granulocytes(IG's)percentage and absolute count will include metamyelocytes, myelocytes, and promyelocytes. Blood smears from CBCs yielding IG's will be scanned manually for concordance. If this scan disagrees with the automated IG or if promyelocytes are noted, a manual differential will be performed. Immature Gran Absolute 0.02 0.00 - 0.04 x10(3)/[facility] Blood specimen (specimen) 12/25/2017 5:50 AM EDT 12/25/2017 6:08 AM EDT Narrative Resulting Agency Comment Spec In Lab José Miguel Maher MD HEMATOLOGY ORDERABLE S Performing Organization Address City/State/[facility] Co de Phone Number [facility] [place] [address] * (ABNORMAL) Hemogram (12/25/2017 5:50 AM EDT) White Blood Cell 4.9 4.0 - 9.5 x10(3)/[facility] Red Blood Cell 4.84 4.58 - 5.54 x10(6)/[facility] Hemoglobin 11.9(L) 13.7 - 16.5 gm/dL [facility] Hematocrit 36.4(L) 40.5 - 48.5 % [facility] Mean Cell Volume 75.2(L) 82.9 - 93.1 fL [facility] Mean Cell Hemoglobin 24.6(L) 27.5 - 32.1 pg [facility] Mean Cell Hemoglobin Concentration 32.7 32.0 - 35.7 gm/dL [facility] Platelet 313 145 - 357 x10(3)/mc L [facility] RDW Standard Deviation 45.6(H) 36.0 - 45.0 fL [facility] RDW coefficient of variation 17.0(H) 11.4 - 13.8 % [facility] Mean Platelet Volume 9.6 7.6 - 12.9 [facility] NRBC% auto 0.0 % [facility] NRBC Absolute 0.000 0.000 - 0.000 x10(3)/mc L [facility] Blood specimen (specimen) 12/25/2017 5:50 AM EDT 12/25/2017 6:08 AM EDT Narrative Resulting Agency Comment Spec In Lab José Miguel Maher MD HEMATOLOGY ORDERABLE S [facility] [place] [address] * (ABNORMAL) Basic Metabolic Panel (non-fasting) (12/25/2017 5:50 AM EDT) Glucose 107 65 - 199 mg/dL [facility] Comment:Diabetes: >=200 mg/d L plus symptoms Blood Urea Nitrogen 14 10 - 20 mg/dL [facility] Creatinine 0.63(L) 0.80 - 1.50 mg/dL [facility] Sodium 149(H) 135 - 145 mmol/L [facility] Potassium 3.6 3.5 - 5.0 mmol/L [facility] Comment: Please note: ??Patients with WBC >100,000 may have falsely elevated Potassium levels. ??For accurate Potassium quantification in these patients send serum separator tube (gold top) for subsequent determinations. ??Contact the Clinical Chemistry Laboratory if there are any questions. Chloride 108(H) 98 - 107 mmol/L [facility] Carbon Dioxide 25 22 - 31 mmol/L [facility] Anion Gap 16(H) 5 - 15 mmol/L [facility] Calcium 9.9 8.5 - 10.5 mg/dL [facility] Est Glomerular Filtration Rate 135 >=60 mL/min/1. 73 m?? [facility] Comment: The eGFR was calculated using the CKD-EPI equation. As with all creatinine based estimates of kidney function, eGFR values calculated with the CKD-EPI equation are not accurate in patients with acute kidney failure, extremes of body mass or the acutely ill. [email or web address] eGFR 157 >=60 mL/min/1. 73 m?? [facility] Comment: The eGFR was calculated using the CKD-EPI equation. As with all creatinine based estimates of kidney function, eGFR values calculated with the CKD-EPI equation are not accurate in patients with acute kidney failure, extremes of body mass or the acutely ill. [email or web address] Blood specimen (specimen) 12/25/2017 5:50 AM EDT 12/25/2017 6:08 AM EDT Narrative Resulting Agency Comment Spec In Lab José Miguel Maher MD CHEMISTRY ORDERABLES [facility] [place] [address] * (ABNORMAL) Sodium (12/24/2017 12:19 AM EDT) Sodium 147(H) 135 - 145 mmol/L [facility] Blood specimen (specimen) 12/24/2017 12:19 AM EDT 12/24/2017 12:29 AM EDT Narrative Resulting Agency Comment Spec In Lab José Miguel Maher MD CHEMISTRY ORDERABLES Performing Organization Address City/[facility]/[place] [address] * (ABNORMAL) Differential, Automated (12/23/2017 6:41 AM EDT) Neutrophil % 40.1 % [facility] Neutrophil Absolute 1.93 1.70 - 6.10 x10(3)/mc L [facility] Lymph % 39.4 % [facility] Lymphocytes Abs 1.9 0.9 - 3.2 x10(3)/ L [facility] Monocyte % 11.6 % [facility] Monocyte Abs 0.6 0.3 - 0.9 x10(3)/ L [facility] Eos % 7.1 % [facility] Eosinophils Abs 0.3 0.0 - 0.4 x10(3)/ L [facility] Basophil % 0.8 % [facility] Baso Absolute 0.0 0.0 - 0.1 x10(3)/ L [facility] Immature Gran % 1.00 % [facility] Comment: Immature granulocytes(IG's)percentage and absolute count will include metamyelocytes, myelocytes, and promyelocytes. Blood smears from CBCs yielding IG's will be scanned manually for concordance. If this scan disagrees with the automated IG or if promyelocytes are noted, a manual differential will be performed. Immature Gran Absolute 0.05(H) 0.00 - 0.04 x10(3)/mc L [facility] Blood specimen (specimen) 12/23/2017 6:41 AM EDT 12/23/2017 6:48 AM EDT Narrative Resulting Agency Comment Spec In Lab José Miguel Maher MD HEMATOLOGY ORDERABLE S Performing Organization Address City/[facility]/ZIP Co de Phone Number [facility] [place] [address] * (ABNORMAL) Hemogram (12/23/2017 6:41 AM EDT) [facility] White Blood Cell 4.8 4.0 - 9.5 x10(3)/[facility] Red Blood Cell 4.62 4.58 - 5.54 x10(6)/[facility] Hemoglobin 10.6(L) 13.7 - 16.5 gm/dL [facility] Hematocrit 34.7(L) 40.5 - 48.5 % [facility] Mean Cell Volume 75.1(L) 82.9 - 93.1 [facility] Mean Cell Hemoglobin 22.9(L) 27.5 - 32.1 pg [facility] Mean Cell Hemoglobin Concentration 30.5(L) 32.0 - 35.7 gm/dL [facility] Platelet 286 145 - 357 x10(3)/[facility] RDW Standard Deviation 45.8(H) 36.0 - 45.0 [facility] RDW coefficient of variation 17.0(H) 11.4 - 13.8 % [facility] Mean Platelet Volume 9.9 7.6 - 12.9 [facility] NRBC% auto 0.0 % [facility] NRBC Absolute 0.000 0.000 - 0.000 x10(3)/[facility] Blood specimen (specimen) 12/23/2017 6:41 AM EDT 12/23/2017 6:48 AM EDT Narrative Resulting Agency Comment Spec In Lab José Miguel Maher MD HEMATOLOGY ORDERABLE S [facility] [address] * (ABNORMAL) Basic Metabolic Panel (non-fasting) (12/23/2017 6:41 AM EDT) [facility] Glucose 87 65 - 199 mg/dL [facility] Comment:Diabetes: >=200 mg/d L plus symptoms Blood Urea Nitrogen 14 10 - 20 mg/dL [facility] Creatinine 0.61(L) 0.80 - 1.50 mg/dL [facility] Sodium 149(H) 135 - 145 mmol/L [facility] Potassium 4.0 3.5 - 5.0 mmol/L [facility] Comment: Please note: ??Patients with WBC >100,000 may have falsely elevated Potassium levels. ??For accurate Potassium quantification in these patients send serum separator tube ([facility] top) for subsequent determinations. ??Contact the Clinical Chemistry Laboratory if there are any questions. Chloride 111(H) 98 - 107 mmol/L [facility] Carbon Dioxide 24 22 - 31 mmol/L [facility] Anion Gap 14 5 - 15 mmol/L [facility] Calcium 9.6 8.5 - 10.5 mg/dL [facility] Est Glomerular Filtration Rate 137 >=60 mL/min/1. 73 m?? [facility] Comment: The eGFR was calculated using the CKD-EPI equation. As with all creatinine based estimates of kidney function, eGFR values calculated with the CKD-EPI equation are not accurate in patients with acute kidney failure, extremes of body mass or the acutely ill. [email or web address] eGFR 159 >=60 mL/min/1. 73 m?? [facility] Comment: The eGFR was calculated using the CKD-EPI equation. As with all creatinine based estimates of kidney function, eGFR values calculated with the CKD-EPI equation are not accurate in patients with acute kidney failure, extremes of body mass or the acutely ill. [email or web address] Blood specimen (specimen) 12/23/2017 6:41 AM EDT 12/23/2017 6:48 AM EDT Narrative Resulting Agency Comment Spec In Lab José Miguel Maher MD CHEMISTRY ORDERABLES Performing Organization Address City/[facility]/ZIP Co de Phone Number [facility] [place] [address] * Sodium (12/21/2017 8:00 PM EDT) Pathologist [facility] Sodium 143 135 - 145 mmol/L [facility] Blood specimen (specimen) 12/21/2017 8:00 PM EDT 12/21/2017 8:06 PM EDT Narrative Resulting Agency Comment Spec In Lab José Miguel Maher MD CHEMISTRY ORDERABLES Performing Organization Address [facility] Co de Phone Number [facility] [address] * Scan, Peripheral Blood (12/21/2017 10:18 AM EDT) Pathologist [facility] Plat estimate Normal [facility] RBC Morphology Abnormal [facility] Microcyte gtr than 10 /HPF [facility] Tear Cell 1-5 /HPF [facility] Blood specimen (specimen) 12/21/2017 10:18 AM EDT 12/21/2017 10:38 AM EDT Narrative Resulting Agency Comment Spec In Lab José Miguel Maher MD HEMATOLOGY ORDERABLE S Performing Organization Address [facility] Co de Phone Number [facility] [address] * (ABNORMAL) Differential, Automated (12/21/2017 10:18 AM EDT) Pathologist [facility] Neutrophil % 65.7 % [facility] Neutrophil Absolute 5.47 1.70 - 6.10 x10(3)/mc L [facility] Lymph % 19.0 % [facility] Lymphocytes Abs 1.6 0.9 - 3.2 x10(3)/mc L [facility] Monocyte % 9.0 % [facility] Monocyte Abs 0.8 0.3 - 0.9 x10(3)/[facility] Eos % 4.6 % [facility] Eosinophils Abs 0.4 0.0 - 0.4 x10(3)/[facility] Basophil % 0.7 % [facility] Baso Absolute 0.1 0.0 - 0.1 x10(3)/[facility] Immature Gran % 1.00 % [facility] Comment: Immature granulocytes(IG's)percentage and absolute count will include metamyelocytes, myelocytes, and promyelocytes. Blood smears from CBCs yielding IG's will be scanned manually for concordance. If this scan disagrees with the automated IG or if promyelocytes are noted, a manual differential will be performed. Immature Gran Absolute 0.08(H) 0.00 - 0.04 x10(3)/[facility] Blood specimen (specimen) 12/21/2017 10:18 AM EDT 12/21/2017 10:38 AM EDT Narrative Resulting Agency Comment Spec In Lab oJsé Miguel Maher MD HEMATOLOGY ORDERABLE S [facility] [place] [address] * (ABNORMAL) Hemogram (12/21/2017 10:18 AM EDT) White Blood Cell 8.3 4.0 - 9.5 x10(3)/[facility] Red Blood Cell 5.42 4.58 - 5.54 x10(6)/[facility] Hemoglobin 12.5(L) 13.7 - 16.5 gm/dL [facility] Hematocrit 40.5 40.5 - 48.5 % [facility] Mean Cell Volume 74.7(L) 82.9 - 93.1 fL [facility] Mean Cell Hemoglobin 23.1(L) 27.5 - 32.1 pg [facility] Mean Cell Hemoglobin Concentration 30.9(L) 32.0 - 35.7 gm/dL [facility] Platelet 333 145 - 357 x10(3)/mc L [facility] RDW Standard Deviation 45.7(H) 36.0 - 45.0 [facility] RDW coefficient of variation 17.3(H) 11.4 - 13.8 % [facility] Mean Platelet Volume 9.9 7.6 - 12.9 fL [facility] NRBC% auto 0.0 % [facility] NRBC Absolute 0.000 0.000 - 0.000 x10(3)/mc L [facility] Blood specimen (specimen) 12/21/2017 10:18 AM EDT 12/21/2017 10:38 AM EDT Narrative Resulting Agency Comment Spec In Lab José Miguel Maher MD HEMATOLOGY ORDERABLE S [facility] [place] [address] * (ABNORMAL) Basic Metabolic Panel (non-fasting) (12/21/2017 10:18 AM EDT) Glucose 134 65 - 199 mg/dL [facility] Comment:Diabetes: >=200 mg/d L plus symptoms Blood Urea Nitrogen 15 10 - 20 mg/dL [facility] Creatinine 0.82 0.80 - 1.50 mg/dL [facility] Sodium 147(H) 135 - 145 mmol/L [facility] Potassium 4.2 3.5 - 5.0 mmol/L [facility] Comment: Please note: ??Patients with WBC >100,000 may have falsely elevated Potassium levels. ??For accurate Potassium quantification in these patients send serum separator tube (gold top) for subsequent determinations. ??Contact the Clinical Chemistry Laboratory if there are any questions. Chloride 109(H) 98 - 107 mmol/L [facility] Carbon Dioxide 22 22 - 31 mmol/L [facility] Anion Gap 16(H) 5 - 15 mmol/L [facility] Calcium 10.2 8.5 - 10.5 mg/dL [facility] Est Glomerular Filtration Rate 121 >=60 mL/min/1. 73 m?? [facility] Comment: The eGFR was calculated using the CKD-EPI equation. As with all creatinine based estimates of kidney function, eGFR values calculated with the CKD-EPI equation are not accurate in patients with acute kidney failure, extremes of body mass or the acutely ill. [email or web address] eGFR 140 >=60 mL/min/1. 73 m?? [facility] Comment: The eGFR was calculated using the CKD-EPI equation. As with all creatinine based estimates of kidney function, eGFR values calculated with the CKD-EPI equation are not accurate in patients with acute kidney failure, extremes of body mass or the acutely ill. [email or web address] – OKLA[place] CITYnkf Blood specimen (specimen) 12/21/2017 10:18 AM EDT 12/21/2017 10:38 AM EDT Narrative Resulting Agency Comment Spec In Lab José Miguel Maher MD CHEMISTRY ORDERABLES [facility] [place] [address] * (ABNORMAL) Electrolytes panel (12/16/2017 9:01 AM EDT) Sodium 143 135 - 145 mmol/L [facility] Potassium 3.8 3.5 - 5.0 mmol/L [facility] Comment: Please note: ??Patients with WBC >100,000 may have falsely elevated Potassium levels. ??For accurate Potassium quantification in these patients send serum separator tube (gold top) for subsequent determinations. ??Contact the Clinical Chemistry Laboratory if there are any questions. Chloride 103 98 - 107 mmol/L [facility] Carbon Dioxide 23 22 - 31 mmol/L [facility] Anion Gap 17(H) 5 - 15 mmol/L [facility] Blood specimen (specimen) 12/16/2017 9:01 AM EDT 12/16/2017 9:12 AM EDT Narrative Resulting Agency Comment Spec In Lab Fran Gilliam MD CHEMISTRY ORDERABL ES [facility] [address] * (ABNORMAL) Basic Metabolic Panel (non-fasting) (12/14/2017 6:09 PM EDT) Glucose 121 65 - 199 mg/dL [facility] Comment:Diabetes: >=200 mg/d L plus symptoms Blood Urea Nitrogen 11 10 - 20 mg/dL [facility] Creatinine 0.86 0.80 - 1.50 mg/dL [facility] Sodium 145 135 - 145 mmol/L [facility] Potassium 4.1 3.5 - 5.0 mmol/L [facility] Comment: Please note: ??Patients with WBC >100,000 may have falsely elevated Potassium levels. ??For accurate Potassium quantification in these patients send serum separator tube (gold top) for subsequent determinations. ??Contact the Clinical Chemistry Laboratory if there are any questions. Chloride 105 98 - 107 mmol/L [facility] Carbon Dioxide 21(L) 22 - 31 mmol/L [facility] Anion Gap 19(H) 5 - 15 mmol/L [facility] Calcium 8.9 8.5 - 10.5 mg/dL [facility] Est Glomerular Filtration Rate >60 >=60 [facility] Comment: The reported eGFR should be multiplied by 1.2 for patients. The MDRD is not an appropriate measure of renal function for patients with body mass extremes or in patients with acute kidney failure. [email or web address] Blood specimen (specimen) 12/14/2017 6:09 PM EDT 12/14/2017 6:24 PM EDT Narrative Resulting Agency Comment Spec In Lab Fran Gilliam MD CHEMISTRY ORDERABL ES Performing Organization Address City/[facility]/ZIP Co de Phone Number [facility] [place] [address] * Urine Hold (12/10/2017 11:09 AM EDT) Hold, Urine Sample in lab. [facility] Urine specimen (specimen) Urine / Unknown 12/10/2017 11:09 AM EDT 12/10/2017 11:58 AM EDT Kemi Camp APRN URINE ORDERABLES Performing Organization Address [facility] Co de Phone Number [facility] [place] [address] * Urinalysis with reflex Culture (12/10/2017 11:07 AM EDT) Glucose, Urine Dipstick Negative Negative mg/dL [facility] Protein, Urine Dipstick Negative Negative mg/dL [facility] Bilirubin, Urine Dipstick Negative Negative mg/dL [facility] Comment: Clinical correlation required for positive Urine Bilirubin results as false positive may occur with some drugs and drug related products. If a false positive is suspected a serum total bilirubin should be considered if clinically indicated. Urobilinogen, Urine Dipstick Normal Normal mg/dL [facility] pH, Urn (dipstick) 6.0 5.0 - 8.0 [facility] Blood, Urine Dipstick Negative Negative mg/dL [facility] Ketone, Urine Dipstick Negative Negative mg/dL [facility] Nitrite, Urine Dipstick Negative Negative [facility] Leukocytes, Urine Dipstick Negative Negative [facility] Appearance, Urine Dipstick Clear Clear [facility] Specific [place] Urine Automated 1.015 1.002 - 1.030 [facility] Color, Urine Dipstick Straw Yellow [facility] Reflex to Culture No [facility] Urine specimen obtained by clean catch procedure (specimen) 12/10/2017 11:07 AM EDT 12/10/2017 11:58 AM EDT Narrative Resulting Agency Comment Spec In Lab Kemi Emerald Marya SANTANA URINE ORDERABLES [facility] [address] * (ABNORMAL) BMP w/fasting Glucose (12/09/2017 4:07 AM EDT) Glucose Fasting 90 65 - 99 mg/dL [facility] Comment: ?Fasting* Glucose Interpretive Criteria [...] of Diabetes Mellitus, Position Statement from the [place] [employer]. ??Diabetes Care, Volume 33, Supplement 1, Jul 2009 Blood Urea Nitrogen 20 10 - 20 mg/dL [facility] Creatinine 0.74(L) 0.80 - 1.50 mg/dL [facility] Sodium 139 135 - 145 mmol/L [facility] Potassium 3.8 3.5 - 5.0 mmol/L [facility] Comment: Please note: ??Patients with WBC >100,000 may have falsely elevated Potassium levels. ??For accurate Potassium quantification in these patients send serum separator tube (gold top) for subsequent determinations. ??Contact the Clinical Chemistry Laboratory if there are any questions. Chloride 102 98 - 107 mmol/L [facility] Carbon Dioxide 22 22 - 31 mmol/L [facility] Anion Gap 15 5 - 15 mmol/L [facility] Calcium 9.0 8.5 - 10.5 mg/dL [facility] Est Glomerular Filtration Rate >60 >=60 [facility] Comment: The reported eGFR should be multiplied by 1.2 for patients. The MDRD is not an appropriate measure of renal function for patients with body mass extremes or in patients with acute kidney failure. [email or web address] Blood specimen (specimen) 12/09/2017 4:07 AM EDT 12/09/2017 4:24 AM EDT Narrative Resulting Agency Comment Spec In Lab Danay Rajan MD CHEMISTRY ORDERAB LES Performing Organization Address City/State/[facility] Co de Phone Number [facility] [place] [address] * (ABNORMAL) Differential, Automated (12/06/2017 7:48 AM EDT) Neutrophil % 37.8 % [facility] Neutrophil Absolute 1.75 1.70 - 6.10 x10(3)/mc L [facility] Lymph % 40.4 % [facility] Lymphocytes Abs 1.9 0.9 - 3.2 x10(3)/mc L [facility] Monocyte % 14.3 % [facility] Monocyte Abs 0.7 0.3 - 0.9 x10(3)/mc L [facility] Eos % 5.8 % [facility] Eosinophils Abs 0.3 0.0 - 0.4 x10(3)/mc L [facility] Basophil % 0.6 % [facility] Baso Absolute 0.0 0.0 - 0.1 x10(3)/mc L [facility] Immature Gran % 1.10 % [facility] Comment: Immature granulocytes(IG's)percentage and absolute count will include metamyelocytes, myelocytes, and promyelocytes. Blood smears from CBCs yielding IG's will be scanned manually for concordance. If this scan disagrees with the automated IG or if promyelocytes are noted, a manual differential will be performed. Immature Gran Absolute 0.05(H) 0.00 - 0.04 x10(3)/[facility] Blood specimen (specimen) 12/06/2017 7:48 AM EDT 12/06/2017 7:53 AM EDT Narrative Resulting Agency Comment Spec In Lab Constantino Courtney MD HEMATOLOGY ORDERABLE S [facility] [place] [address] * (ABNORMAL) Hemogram (12/06/2017 7:48 AM EDT) White Blood Cell 4.6 4.0 - 9.5 x10(3)/[facility] Red Blood Cell 5.03 4.58 - 5.54 x10(6)/ L [facility] Hemoglobin 11.7(L) 13.7 - 16.5 gm/dL [facility] Hematocrit 38.1(L) 40.5 - 48.5 % [facility] Mean Cell Volume 75.7(L) 82.9 - 93.1 fL [facility] Mean Cell Hemoglobin 23.3(L) 27.5 - 32.1 pg [facility] Mean Cell Hemoglobin Concentration 30.7(L) 32.0 - 35.7 gm/dL [facility] Platelet 291 145 - 357 x10(3)/[facility] RDW Standard Deviation 45.1(H) 36.0 - 45.0 fL [facility] RDW coefficient of variation 16.8(H) 11.4 - 13.8 % [facility] Mean Platelet Volume 9.5 7.6 - 12.9 fL [facility] NRBC% auto 0.0 % [facility] NRBC Absolute 0.000 0.000 - 0.000 x10(3)/mc L [facility] Blood specimen (specimen) 12/06/2017 7:48 AM EDT 12/06/2017 7:53 AM EDT Narrative Resulting Agency Comment Spec In Lab Constantino Courtney MD HEMATOLOGY ORDERABLE S [facility] [address] * (ABNORMAL) Basic Metabolic Panel (non-fasting) (12/06/2017 7:48 AM EDT) Glucose 94 65 - 199 mg/dL [facility] Comment:Diabetes: >=200 mg/d L plus symptoms Blood Urea Nitrogen 23(H) 10 - 20 mg/dL [facility] Creatinine 0.64(L) 0.80 - 1.50 mg/dL [facility] Sodium 143 135 - 145 mmol/L [facility] Potassium 3.7 3.5 - 5.0 mmol/L [facility] Comment: Please note: ??Patients with WBC >100,000 may have falsely elevated Potassium levels. ??For accurate Potassium quantification in these patients send serum separator tube (gold top) for subsequent determinations. ??Contact the Clinical Chemistry Laboratory if there are any questions. Chloride 104 98 - 107 mmol/L [facility] Carbon Dioxide 24 22 - 31 mmol/L [facility] Anion Gap 15 5 - 15 mmol/L [facility] Calcium 8.9 8.5 - 10.5 mg/dL [facility] Est Glomerular Filtration Rate >60 >=60 [facility] Comment: The reported eGFR should be multiplied by 1.2 for patients. The MDRD is not an appropriate measure of renal function for patients with body mass extremes or in patients with acute kidney failure. [email or web address] Blood specimen (specimen) 12/06/2017 7:48 AM EDT 12/06/2017 7:53 AM EDT Narrative Resulting Agency Comment Spec In Lab Constantino Courtney MD CHEMISTRY ORDERABLES Performing Organization Address [facility] Co de Phone Number [facility] [address] * EKG 12 Lead (12/05/2017 5:29 PM EDT) Ventricular rate 110 BPM MUSE SYSTEM Atrial Rate 110 BPM MUSE SYSTEM P-R Interval 142 ms MUSE SYSTEM QRS Duration 94 ms MUSE SYSTEM Q-T Interval 334 ms MUSE SYSTEM QTC Calculated (Bezet) 452 ms MUSE SYSTEM Calculated P Carson 33 degrees MUSE SYSTEM Calculated R Carson 57 degrees MUSE SYSTEM Calculated T Carson 60 degrees MUSE SYSTEM INTERPRETATION Sinus tachycardia Nonspecific ST/T wave abnormality Abnormal ECG When compared with ECG of 04-SEP-2017 22:30, Rate slower Confirmed by MD Oh, Sukhi Walker ([id number]) on 12/06/2017 10:46:47 AM MUSE SYSTEM 12/05/2017 5:29 PM EDT 12/06/2017 10:46 AM EDT Constantino Courtney MD ECG ORDERABLES Performing Organization Address [facility] de Phone Number MUSE SYSTEM * (ABNORMAL) Electrolytes panel (12/05/2017 1:17 PM EDT) Sodium 143 135 - 145 mmol/L [facility] Potassium 4.0 3.5 - 5.0 mmol/L [facility] Comment: Please note: ??Patients with WBC >100,000 may have falsely elevated Potassium levels. ??For accurate Potassium quantification in these patients send serum separator tube (gold top) for subsequent determinations. ??Contact the Clinical Chemistry Laboratory if there are any questions. Chloride 105 98 - 107 mmol/L [facility] Carbon Dioxide 21(L) 22 - 31 mmol/L [facility] Anion Gap 17(H) 5 - 15 mmol/L [facility] Blood specimen (specimen) 12/05/2017 1:17 PM EDT 12/05/2017 1:40 PM EDT Narrative Resulting Agency Comment Spec In Lab Fran Gilliam MD CHEMISTRY ORDERABL ES Performing Organization Address [facility] de Phone Number [facility] [place] [address] * Electrolytes panel (12/04/2017 3:16 PM EDT) Sodium 142 135 - 145 mmol/L [facility] Potassium 4.6 3.5 - 5.0 mmol/L [facility] Comment: result [id number] Please note: ??Patients with WBC >100,000 may have falsely elevated Potassium levels. ??For accurate Potassium quantification in these patients send serum separator tube (gold top) for subsequent determinations. ??Contact the Clinical Chemistry Laboratory if there are any questions. Chloride 106 98 - 107 mmol/L [facility] Carbon Dioxide 22 22 - 31 mmol/L [facility] Anion Gap 14 5 - 15 mmol/L [facility] Blood specimen (specimen) 12/04/2017 3:16 PM EDT 12/04/2017 3:27 PM EDT Narrative Resulting Agency Comment Spec In Lab Fran Gilliam MD CHEMISTRY ORDERABL ES Performing Organization Address [facility] Co de Phone Number [facility] [place] [address] * (ABNORMAL) Electrolytes panel (12/04/2017 6:27 AM EDT) Sodium 141 135 - 145 mmol/L [facility] Potassium 3.4(L) 3.5 - 5.0 mmol/L [facility] Comment: Please note: ??Patients with WBC >100,000 may have falsely elevated Potassium levels. ??For accurate Potassium quantification in these patients send serum separator tube (gold top) for subsequent determinations. ??Contact the Clinical Chemistry Laboratory if there are any questions. Chloride 102 98 - 107 mmol/L [facility] Carbon Dioxide 25 22 - 31 mmol/L [facility] Anion Gap 14 5 - 15 mmol/L [facility] Blood specimen (specimen) 12/04/2017 6:27 AM EDT 12/04/2017 6:39 AM EDT Narrative Resulting Agency Comment Spec In Lab Fran Gilliam MD CHEMISTRY ORDERABL ES [facility] [place] [address] * (ABNORMAL) Basic Metabolic Panel (non-fasting) (12/03/2017 1:15 PM EDT) Glucose 96 65 - 199 mg/dL [facility] Comment:Diabetes: >=200 mg/d L plus symptoms Blood Urea Nitrogen 24(H) 10 - 20 mg/dL [facility] Creatinine 0.84 0.80 - 1.50 mg/dL [facility] Sodium 142 135 - 145 mmol/L [facility] Potassium 3.9 3.5 - 5.0 mmol/L [facility] Comment: Please note: ??Patients with WBC >100,000 may have falsely elevated Potassium levels. ??For accurate Potassium quantification in these patients send serum separator tube (gold top) for subsequent determinations. ??Contact the Clinical Chemistry Laboratory if there are any questions. Chloride 105 98 - 107 mmol/L [facility] Carbon Dioxide 20(L) 22 - 31 mmol/L [facility] Anion Gap 17(H) 5 - 15 mmol/L [facility] Calcium 9.2 8.5 - 10.5 mg/dL [facility] Est Glomerular Filtration Rate >60 >=60 [facility] Comment: The reported eGFR should be multiplied by 1.2 for patients. The MDRD is not an appropriate measure of renal function for patients with body mass extremes or in patients with acute kidney failure. [email or web address] Blood specimen (specimen) 12/03/2017 1:15 PM EDT 12/03/2017 1:27 PM EDT Narrative Resulting Agency Comment Spec In Lab Fran Gilliam MD CHEMISTRY ORDERABL ES Performing Organization Address [facility] Co de Phone Number [facility] [place] [address] * (ABNORMAL) Electrolytes panel (12/03/2017 5:48 AM EDT) Sodium 144 135 - 145 mmol/L [facility] Potassium 3.5 3.5 - 5.0 mmol/L [facility] Comment: Please note: ??Patients with WBC >100,000 may have falsely elevated Potassium levels. ??For accurate Potassium quantification in these patients send serum separator tube (gold top) for subsequent determinations. ??Contact the Clinical Chemistry Laboratory if there are any questions. Chloride 106 98 - 107 mmol/L [facility] Carbon Dioxide 22 22 - 31 mmol/L [facility] Anion Gap 16(H) 5 - 15 mmol/L [facility] Blood specimen (specimen) 12/03/2017 5:48 AM EDT 12/03/2017 6:07 AM EDT Narrative Resulting Agency Comment Spec In Lab Fran Gilliam MD CHEMISTRY ORDERABL ES Performing Organization Address [facility] Co de Phone Number [facility] [place] [address] * (ABNORMAL) Electrolytes panel (12/02/2017 10:03 PM EDT) Sodium 146(H) 135 - 145 mmol/L [facility] Potassium 3.9 3.5 - 5.0 mmol/L [facility] Comment: Please note: ??Patients with WBC >100,000 may have falsely elevated Potassium levels. ??For accurate Potassium quantification in these patients send serum separator tube (gold top) for subsequent determinations. ??Contact the Clinical Chemistry Laboratory if there are any questions. Chloride 110(H) 98 - 107 mmol/L [facility] Carbon Dioxide 22 22 - 31 mmol/L [facility] Anion Gap 14 5 - 15 mmol/L [facility] Blood specimen (specimen) 12/02/2017 10:03 PM EDT 12/02/2017 10:11 PM EDT Narrative Resulting Agency Comment Spec In Lab Fran Gilliam MD CHEMISTRY ORDERABL ES Performing Organization Address [facility] Co de Phone Number [facility] [place] [address] * (ABNORMAL) Sodium (12/02/2017 11:40 AM EDT) Sodium 150(H) 135 - 145 mmol/L [facility] Blood specimen (specimen) 12/02/2017 11:40 AM EDT 12/02/2017 11:59 AM EDT Narrative Resulting Agency Comment Spec In Lab Fran Gilliam MD CHEMISTRY ORDERABL ES Performing Organization Address [facility] Co de Phone Number [facility] [place] [address] * (ABNORMAL) Electrolytes panel (12/02/2017 7:52 AM EDT) Sodium 153(H) 135 - 145 mmol/L [facility] Potassium 3.7 3.5 - 5.0 mmol/L [facility] Comment: Please note: ??Patients with WBC >100,000 may have falsely elevated Potassium levels. ??For accurate Potassium quantification in these patients send serum separator tube (gold top) for subsequent determinations. ??Contact the Clinical Chemistry Laboratory if there are any questions. Chloride 114(H) 98 - 107 mmol/L [facility] Carbon Dioxide 22 22 - 31 mmol/L [facility] Anion Gap 17(H) 5 - 15 mmol/L [facility] Blood specimen (specimen) 12/02/2017 7:52 AM EDT 12/02/2017 7:58 AM EDT Narrative Resulting Agency Comment Spec In Lab Fran Gilliam MD CHEMISTRY ORDERABL ES [facility] [place] [address] * (ABNORMAL) Basic Metabolic Panel (non-fasting) (12/01/2017 9:43 PM EDT) Glucose 132 65 - 199 mg/dL [facility] Comment:Diabetes: >=200 mg/d L plus symptoms Blood Urea Nitrogen 23(H) 10 - 20 mg/dL [facility] Creatinine 0.92 0.80 - 1.50 mg/dL [facility] Sodium 148(H) 135 - 145 mmol/L [facility] Potassium 3.6 3.5 - 5.0 mmol/L [facility] Comment: Please note: ??Patients with WBC >100,000 may have falsely elevated Potassium levels. ??For accurate Potassium quantification in these patients send serum separator tube (gold top) for subsequent determinations. ??Contact the Clinical Chemistry Laboratory if there are any questions. Chloride 111(H) 98 - 107 mmol/L [facility] Carbon Dioxide 25 22 - 31 mmol/L [facility] Anion Gap 12 5 - 15 mmol/L [facility] Calcium 8.6 8.5 - 10.5 mg/dL [facility] Est Glomerular Filtration Rate >60 >=60 [facility] Comment: The reported eGFR should be multiplied by 1.2 for patients. The MDRD is not an appropriate measure of renal function for patients with body mass extremes or in patients with acute kidney failure. [email or web address] Blood specimen (specimen) 12/01/2017 9:43 PM EDT 12/01/2017 9:48 PM EDT Narrative Resulting Agency Comment Spec In Lab Fran Gilliam MD CHEMISTRY ORDERABL ES [facility] [place] [address] * (ABNORMAL) Basic Metabolic Panel (non-fasting) (12/01/2017 11:27 AM EDT) Glucose 99 65 - 199 mg/dL [facility] Comment:Diabetes: >=200 mg/d L plus symptoms Blood Urea Nitrogen 21(H) 10 - 20 mg/dL [facility] Creatinine 1.03 0.80 - 1.50 mg/dL [facility] Sodium 151(H) 135 - 145 mmol/L [facility] Potassium 4.0 3.5 - 5.0 mmol/L [facility] Comment: Please note: ??Patients with WBC >100,000 may have falsely elevated Potassium levels. ??For accurate Potassium quantification in these patients send serum separator tube (gold top) for subsequent determinations. ??Contact the Clinical Chemistry Laboratory if there are any questions. Chloride 114(H) 98 - 107 mmol/L [facility] Carbon Dioxide 24 22 - 31 mmol/L [facility] Anion Gap 13 5 - 15 mmol/L [facility] Calcium 9.3 8.5 - 10.5 mg/dL [facility] Est Glomerular Filtration Rate >60 >=60 [facility] Comment: The reported eGFR should be multiplied by 1.2 for patients. The MDRD is not an appropriate measure of renal function for patients with body mass extremes or in patients with acute kidney failure. [email or web address] Blood specimen (specimen) 12/01/2017 11:27 AM EDT 12/01/2017 11:33 AM EDT Narrative Resulting Agency Comment Spec In Lab Fran Gilliam MD CHEMISTRY ORDERABL ES Performing Organization Address City/[facility]/ZIP Co de Phone Number [facility] [place] [address] * T4, free (11/28/2017 10:52 AM EDT) Free T4 0.98 0.93 - 1.70 ng/dL [facility] Blood specimen (specimen) 11/28/2017 10:52 AM EDT 11/28/2017 11:07 AM EDT Narrative Resulting Agency Comment Spec In Lab Yadi Mccauley MD CHEMISTRY ORDERAB LES Performing Organization Address [facility]/ZIP Co de Phone Number [facility] [place] [address] * Basic Metabolic Panel (non-fasting) (11/26/2017 5:49 AM EDT) [facility] Glucose 84 65 - 199 mg/dL [facility] Comment:Diabetes: >=200 mg/d L plus symptoms Blood Urea Nitrogen 13 10 - 20 mg/dL [facility] Creatinine 0.80 0.80 - 1.50 mg/dL [facility] Sodium 143 135 - 145 mmol/L [facility] Potassium 3.7 3.5 - 5.0 mmol/L [facility] Comment: Please note: ??Patients with WBC >100,000 may have falsely elevated Potassium levels. ??For accurate Potassium quantification in these patients send serum separator tube (gold top) for subsequent determinations. ??Contact the Clinical Chemistry Laboratory if there are any questions. Chloride 105 98 - 107 mmol/L [facility] Carbon Dioxide 26 22 - 31 mmol/L [facility] Anion Gap 12 5 - 15 mmol/L [facility] Calcium 9.2 8.5 - 10.5 mg/dL [facility] Est Glomerular Filtration Rate >60 >=60 [facility] Comment: The reported eGFR should be multiplied by 1.2 for patients. The MDRD is not an appropriate measure of renal function for patients with body mass extremes or in patients with acute kidney failure. [email or web address] Blood specimen (specimen) 11/26/2017 5:49 AM EDT 11/26/2017 6:03 AM EDT Narrative Resulting Agency Comment Spec In Lab Ren Sanchez III, MD CHEMISTRY ORDERABLES [facility] [place] [id number] * (ABNORMAL) Basic Metabolic Panel (non-fasting) (11/23/2017 9:53 AM EDT) Glucose 116 65 - 199 mg/dL [facility] Comment:Diabetes: >=200 mg/d L plus symptoms Blood Urea Nitrogen 11 10 - 20 mg/dL [facility] Creatinine 1.06 0.80 - 1.50 mg/dL [facility] Sodium 142 135 - 145 mmol/L [facility] Potassium 3.9 3.5 - 5.0 mmol/L [facility] Comment: Please note: ??Patients with WBC >100,000 may have falsely elevated Potassium levels. ??For accurate Potassium quantification in these patients send serum separator tube (gold top) for subsequent determinations. ??Contact the Clinical Chemistry Laboratory if there are any questions. Chloride 106 98 - 107 mmol/L [facility] Carbon Dioxide 21(L) 22 - 31 mmol/L [facility] Anion Gap 15 5 - 15 mmol/L [facility] Calcium 9.1 8.5 - 10.5 mg/dL [facility] Est Glomerular Filtration Rate >60 >=60 [facility] Comment: The reported eGFR should be multiplied by 1.2 for patients. The MDRD is not an appropriate measure of renal function for patients with body mass extremes or in patients with acute kidney failure. [email or web address] Blood specimen (specimen) 11/23/2017 9:53 AM EDT 11/23/2017 10:10 AM EDT Narrative Resulting Agency Comment Spec In Lab Crista Augilar MD CHEMISTRY ORDERABLE S [facility] [place] [address] * Basic Metabolic Panel (non-fasting) (11/22/2017 11:05 AM EDT) Glucose 106 65 - 199 mg/dL [facility] Comment:Diabetes: >=200 mg/d L plus symptoms Blood Urea Nitrogen 14 10 - 20 mg/dL [facility] Creatinine 0.84 0.80 - 1.50 mg/dL [facility] Sodium 140 135 - 145 mmol/L [facility] Potassium 4.0 3.5 - 5.0 mmol/L [facility] Comment: Please note: ??Patients with WBC >100,000 may have falsely elevated Potassium levels. ??For accurate Potassium quantification in these patients send serum separator tube (gold top) for subsequent determinations. ??Contact the Clinical Chemistry Laboratory if there are any questions. Chloride 101 98 - 107 mmol/L [facility] Carbon Dioxide 25 22 - 31 mmol/L [facility] Anion Gap 14 5 - 15 mmol/L [facility] Calcium 9.2 8.5 - 10.5 mg/dL [facility] Est Glomerular Filtration Rate >60 >=60 [facility] Comment: The reported eGFR should be multiplied by 1.2 for patients. The MDRD is not an appropriate measure of renal function for patients with body mass extremes or in patients with acute kidney failure. [email or web address] Blood specimen (specimen) 11/22/2017 11:05 AM EDT 11/22/2017 11:14 AM EDT Narrative Resulting Agency Comment Spec In Lab Crista Aguilar MD CHEMISTRY ORDERABLE S Performing Organization Address City/[facility]/ZIP Co de Phone Number [facility] [place] [address] * (ABNORMAL) T4, free (11/22/2017 11:05 AM EDT) Free T4 0.81(L) 0.93 - 1.70 ng/dL [facility] Blood specimen (specimen) 11/22/2017 11:05 AM EDT 11/22/2017 11:14 AM EDT Narrative Resulting Agency Comment Spec In Lab Yadi Mccauley MD CHEMISTRY ORDERAB LES Performing Organization Address [facility] Co de Phone Number [facility] [place] [address] * (ABNORMAL) Basic Metabolic Panel (non-fasting) (11/19/2017 5:00 PM EDT) [facility] Glucose 113 65 - 199 mg/dL [facility] Comment:Diabetes: >=200 mg/d L plus symptoms Blood Urea Nitrogen 12 10 - 20 mg/dL [facility] Creatinine 0.70(L) 0.80 - 1.50 mg/dL [facility] Sodium 134(L) 135 - 145 mmol/L [facility] Potassium 4.2 3.5 - 5.0 mmol/L [facility] Comment: Please note: ??Patients with WBC >100,000 may have falsely elevated Potassium levels. ??For accurate Potassium quantification in these patients send serum separator tube (gold top) for subsequent determinations. ??Contact the Clinical Chemistry Laboratory if there are any questions. Chloride 96(L) 98 - 107 mmol/L [facility] Carbon Dioxide 21(L) 22 - 31 mmol/L [facility] Anion Gap 17(H) 5 - 15 mmol/L [facility] Calcium 8.7 8.5 - 10.5 mg/dL [facility] Est Glomerular Filtration Rate >60 >=60 [facility] Comment: The reported eGFR should be multiplied by 1.2 for patients. The MDRD is not an appropriate measure of renal function for patients with body mass extremes or in patients with acute kidney failure. [email or web address] Blood specimen (specimen) 11/19/2017 5:00 PM EDT 11/19/2017 5:06 PM EDT Narrative Resulting Agency Comment Spec In Lab Crista Aguilar MD CHEMISTRY ORDERABLE S [facility] [place] [address] * (ABNORMAL) Basic Metabolic Panel (non-fasting) (11/19/2017 5:52 AM EDT) Glucose 85 65 - 199 mg/dL [facility] Comment:Diabetes: >=200 mg/d L plus symptoms Blood Urea Nitrogen 11 10 - 20 mg/dL [facility] Creatinine 0.79(L) 0.80 - 1.50 mg/dL [facility] Sodium 132(L) 135 - 145 mmol/L [facility] Potassium 3.7 3.5 - 5.0 mmol/L [facility] Comment: Please note: ??Patients with WBC >100,000 may have falsely elevated Potassium levels. ??For accurate Potassium quantification in these patients send serum separator tube (gold top) for subsequent determinations. ??Contact the Clinical Chemistry Laboratory if there are any questions. Chloride 93(L) 98 - 107 mmol/L [facility] Carbon Dioxide 24 22 - 31 mmol/L [facility] Anion Gap 15 5 - 15 mmol/L [facility] Calcium 8.9 8.5 - 10.5 mg/dL [facility] Est Glomerular Filtration Rate >60 >=60 [facility] Comment: The reported eGFR should be multiplied by 1.2 for patients. The MDRD is not an appropriate measure of renal function for patients with body mass extremes or in patients with acute kidney failure. [email or web address] Blood specimen (specimen) 11/19/2017 5:52 AM EDT 11/19/2017 6:14 AM EDT Narrative Resulting Agency Comment Spec In Lab Crista Aguilar MD CHEMISTRY ORDERABLE S [facility] [place] [address] * XR Pelvis Judet or In Out [...] characterized on CT exam. Yossi Morin DO IMG DX ORDERABLES * (ABNORMAL) Basic Metabolic Panel (non-fasting) (11/18/2017 5:15 AM EDT) Glucose 94 65 - 199 mg/dL [facility] Comment:Diabetes: >=200 mg/d L plus symptoms Blood Urea Nitrogen 12 10 - 20 mg/dL [facility] Creatinine 0.89 0.80 - 1.50 mg/dL [facility] Sodium 137 135 - 145 mmol/L [facility] Potassium 3.6 3.5 - 5.0 mmol/L [facility] Comment: Please note: ??Patients with WBC >100,000 may have falsely elevated Potassium levels. ??For accurate Potassium quantification in these patients send serum separator tube (gold top) for subsequent determinations. ??Contact the Clinical Chemistry Laboratory if there are any questions. Chloride 99 98 - 107 mmol/L [facility] Carbon Dioxide 25 22 - 31 mmol/L [facility] Anion Gap 13 5 - 15 mmol/L [facility] Calcium 8.4(L) 8.5 - 10.5 mg/dL [facility] Est Glomerular Filtration Rate >60 >=60 [facility] Comment: The reported eGFR should be multiplied by 1.2 for patients. The MDRD is not an appropriate measure of renal function for patients with body mass extremes or in patients with acute kidney failure. [email or web address] Blood specimen (specimen) 11/18/2017 5:15 AM EDT 11/18/2017 5:21 AM EDT Narrative Resulting Agency Comment Spec In Lab Crista Aguilar MD CHEMISTRY ORDERABLE S Performing Organization Address City/[facility]/ZIP Co de Phone Number [facility] [place] [address] * POCT Glucose (11/18/2017 3:09 AM EDT) Glucose, POC 146 65 - 199 mg/dL [facility] Comment: Supplemental ranges: <140 mg/dL before meals <180 mg/dL all other times of the day Blood specimen (specimen) 11/18/2017 3:09 AM EDT 11/18/2017 3:09 AM EDT Crista Aguilar MD POINT OF CARE TEST ORDERABLES Performing Organization Address [facility]/ZIP Co de Phone Number [facility] [place] [address] * XR Pelvis w AP & Lat [...] IMPRESSION No acute fracture. Crista Aguilar MD G DX ORDERABLES * XR Knee 1-2 Views [...] No large knee effusion. Crista Aguilar MD [facility] DX ORDERABLES * (ABNORMAL) BMP w/fasting Glucose (11/17/2017 9:09 AM EDT) Glucose Fasting 112(H) 65 - 99 mg/dL [facility] Comment: ?Fasting* Glucose Interpretive Criteria [...] of Diabetes Mellitus, Position Statement from the [place] [employer] Association. ??Diabetes Care, Volume 33, Supplement 1, Jul 2009 Blood Urea Nitrogen 17 10 - 20 mg/dL [facility] Creatinine 0.87 0.80 - 1.50 mg/dL [facility] Sodium 139 135 - 145 mmol/L [facility] Potassium 3.4(L) 3.5 - 5.0 mmol/L [facility] Comment: Please note: ??Patients with WBC >100,000 may have falsely elevated Potassium levels. ??For accurate Potassium quantification in these patients send serum separator tube (gold top) for subsequent determinations. ??Contact the Clinical Chemistry Laboratory if there are any questions. Chloride 100 98 - 107 mmol/L [facility] Carbon Dioxide 24 22 - 31 mmol/L [facility] Anion Gap 15 5 - 15 mmol/L [facility] Calcium 8.9 8.5 - 10.5 mg/dL [facility] Est Glomerular Filtration Rate >60 >=60 [facility] Comment: The reported eGFR should be multiplied by 1.2 for patients. The MDRD is not an appropriate measure of renal function for patients with body mass extremes or in patients with acute kidney failure. [email or web address] Blood specimen (specimen) 11/17/2017 9:09 AM EDT 11/17/2017 9:15 AM EDT Narrative Resulting Agency Comment Spec In Lab Kemi Camp APRN CHEMISTRY ORDERAB LES Performing Organization Address [facility] Co de Phone Number [facility] [place] [address] * T3 Total (11/17/2017 5:11 AM EDT) [facility] T3 Total 80 75 - 170 ng/dL [facility] Blood specimen (specimen) Venous Draw / Unknown 11/17/2017 5:11 AM EDT 11/17/2017 8:16 AM EDT Narrative Resulting Agency Comment Spec In Lab Yadi Mccauley MD CHEMISTRY ORDERAB LES Performing Organization Address [facility] Co de Phone Number [facility] [place] [address] * (ABNORMAL) T4, free (11/17/2017 5:11 AM EDT) [facility] Free T4 0.72(L) 0.93 - 1.70 ng/dL [facility] Blood specimen (specimen) Venous Draw / Unknown 11/17/2017 5:11 AM EDT 11/17/2017 8:16 AM EDT Narrative Resulting Agency Comment Spec In Lab Yadi Mccauley MD CHEMISTRY ORDERAB LES Performing Organization Address [facility] Co de Phone Number [facility] [address] * (ABNORMAL) Basic Metabolic Panel (non-fasting) (11/17/2017 5:11 AM EDT) [facility] Glucose 87 65 - 199 mg/dL [facility] Comment:Diabetes: >=200 mg/d L plus symptoms Blood Urea Nitrogen 17 10 - 20 mg/dL [facility] Creatinine 0.84 0.80 - 1.50 mg/dL [facility] Sodium 138 135 - 145 mmol/L [facility] Comment:result rechecked-jt Potassium 3.4(L) 3.5 - 5.0 mmol/L [facility] Comment: Please note: ??Patients with WBC >100,000 may have falsely elevated Potassium levels. ??For accurate Potassium quantification in these patients send serum separator tube (gold top) for subsequent determinations. ??Contact the Clinical Chemistry Laboratory if there are any questions. Chloride 99 98 - 107 mmol/L [facility] Comment:result rechecked-jt Carbon Dioxide 24 22 - 31 mmol/L [facility] Anion Gap 15 5 - 15 mmol/L [facility] Calcium 8.5 8.5 - 10.5 mg/dL [facility] Est Glomerular Filtration Rate >60 >=60 [facility] Comment: The reported eGFR should be multiplied by 1.2 for patients. The MDRD is not an appropriate measure of renal function for patients with body mass extremes or in patients with acute kidney failure. [email or web address] [email or web address] Blood specimen (specimen) 11/17/2017 5:11 AM EDT 11/17/2017 5:26 AM EDT Narrative Resulting Agency Comment Spec In Lab Crista Aguilar MD CHEMISTRY ORDERABLE S [facility] [address] * (ABNORMAL) Basic Metabolic Panel (non-fasting) (11/16/2017 7:52 PM EDT) Glucose 111 65 - 199 mg/dL [facility] Comment:Diabetes: >=200 mg/d L plus symptoms Blood Urea Nitrogen 20 10 - 20 mg/dL [facility] Creatinine 1.15 0.80 - 1.50 mg/dL [facility] Sodium 142 135 - 145 mmol/L [facility] Potassium 3.8 3.5 - 5.0 mmol/L [facility] Comment: Please note: ??Patients with WBC >100,000 may have falsely elevated Potassium levels. ??For accurate Potassium quantification in these patients send serum separator tube (gold top) for subsequent determinations. ??Contact the Clinical Chemistry Laboratory if there are any questions. Chloride 101 98 - 107 mmol/L [facility] Carbon Dioxide 25 22 - 31 mmol/L [facility] Anion Gap 16(H) 5 - 15 mmol/L [facility] Calcium 8.8 8.5 - 10.5 mg/dL [facility] Est Glomerular Filtration Rate >60 >=60 [facility] Comment: The reported eGFR should be multiplied by 1.2 for patients. The MDRD is not an appropriate measure of renal function for patients with body mass extremes or in patients with acute kidney failure. [email or web address] Blood specimen (specimen) 11/16/2017 7:52 PM EDT 11/16/2017 7:57 PM EDT Narrative Resulting Agency Comment Spec In Lab Crista Aguilar MD CHEMISTRY ORDERABLE S Performing Organization Address [facility] Co de Phone Number [facility] [place] [address] * Specific [place], Urine (11/16/2017 6:24 AM EDT) Specific [place] Urine Automated 1.025 1.002 - 1.030 [facility] Urine specimen (specimen) 11/16/2017 6:24 AM EDT 11/16/2017 6:56 AM EDT Narrative Resulting Agency Comment Spec In Lab Yadi Mccauley MD URINE ORDERABLES Performing Organization Address [facility]/ZIP Co de Phone Number [facility] [place] [address] * Electrolytes, urine, random (11/16/2017 6:24 AM EDT) Sodium, Urine 98 mmol/L [facility] Potassium, Urine 49 mmol/L [facility] Chloride, Urine 75 mmol/L [facility] Urine specimen (specimen) 11/16/2017 6:24 AM EDT 11/16/2017 6:56 AM EDT Narrative Resulting Agency Comment Spec In Lab Yossi Morin DO URINE ORDERABLES Performing Organization Address [facility] Co de Phone Number [facility] [place] [address] * Osmolality, urine, random (11/16/2017 6:24 AM EDT) Osmolality, Urine 493 50 - 1,200 mOsm/kg [facility] Urine specimen (specimen) 11/16/2017 6:24 AM EDT 11/16/2017 6:56 AM EDT Narrative Resulting Agency Comment Spec In Lab Yossi Morin URINE ORDERABLES Performing Organization Address [facility] Co de Phone Number [facility] [place] [address] * (ABNORMAL) Basic Metabolic Panel (non-fasting) (11/15/2017 5:44 PM EDT) Glucose 109 65 - 199 mg/dL [facility] Comment:Diabetes: >=200 mg/d L plus symptoms Blood Urea Nitrogen 13 10 - 20 mg/dL [facility] Creatinine 0.87 0.80 - 1.50 mg/dL [facility] Sodium 152(H) 135 - 145 mmol/L [facility] Potassium 3.8 3.5 - 5.0 mmol/L [facility] Comment: Please note: ??Patients with WBC >100,000 may have falsely elevated Potassium levels. ??For accurate Potassium quantification in these patients send serum separator tube (gold top) for subsequent determinations. ??Contact the Clinical Chemistry Laboratory if there are any questions. Chloride 110(H) 98 - 107 mmol/L [facility] Carbon Dioxide 25 22 - 31 mmol/L [facility] Anion Gap 17(H) 5 - 15 mmol/L [facility] Calcium 9.3 8.5 - 10.5 mg/dL [facility] Est Glomerular Filtration Rate >60 >=60 [facility] Comment: The reported eGFR should be multiplied by 1.2 for patients. The MDRD is not an appropriate measure of renal function for patients with body mass extremes or in patients with acute kidney failure. [email or web address] [email or web address] Blood specimen (specimen) 11/15/2017 5:44 PM EDT 11/15/2017 5:51 PM EDT Narrative Resulting Agency Comment Spec In Lab Crista Aguilar MD CHEMISTRY ORDERABLE S [facility] [place] [address] * (ABNORMAL) T4, free (11/15/2017 5:15 AM EDT) Free T4 0.71(L) 0.93 - 1.70 ng/dL [facility] Blood specimen (specimen) Venous Draw / Unknown 11/15/2017 5:15 AM EDT 11/15/2017 5:28 AM EDT Narrative Resulting Agency Comment Spec In Lab Yadi Mccauley MD CHEMISTRY ORDERAB LES [facility] [place] [address] * Magnesium (11/15/2017 5:15 AM EDT) Magnesium 0.92 0.69 - 1.07 mmol/L [facility] Blood specimen (specimen) 11/15/2017 5:15 AM EDT 11/15/2017 5:25 AM EDT Narrative Resulting Agency Comment Spec In Lab Yossi Morin DO CHEMISTRY ORDERABLES [facility] [place] [address] * (ABNORMAL) Basic Metabolic Panel (non-fasting) (11/15/2017 5:15 AM EDT) Glucose 109 65 - 199 mg/dL [facility] Comment:Diabetes: >=200 mg/d L plus symptoms Blood Urea Nitrogen 13 10 - 20 mg/dL [facility] Creatinine 0.92 0.80 - 1.50 mg/dL [facility] Sodium 151(H) 135 - 145 mmol/L [facility] Potassium 4.0 3.5 - 5.0 mmol/L [facility] Comment: Please note: ??Patients with WBC >100,000 may have falsely elevated Potassium levels. ??For accurate Potassium quantification in these patients send serum separator tube (gold top) for subsequent determinations. ??Contact the Clinical Chemistry Laboratory if there are any questions. Chloride 112(H) 98 - 107 mmol/L [facility] Comment:result rechecked-jt Carbon Dioxide 27 22 - 31 mmol/L [facility] Anion Gap 12 5 - 15 mmol/L [facility] Calcium 9.4 8.5 - 10.5 mg/dL [facility] Est Glomerular Filtration Rate >60 >=60 [facility] Comment: The reported eGFR should be multiplied by 1.2 for patients. The MDRD is not an appropriate measure of renal function for patients with body mass extremes or in patients with acute kidney failure. [email or web address] Blood specimen (specimen) 11/15/2017 5:15 AM EDT 11/15/2017 5:25 AM EDT Narrative Resulting Agency Comment Spec In Lab Yossi Morin DO CHEMISTRY ORDERABLES Performing Organization Address City/[facility]/ZIP Co de Phone Number [facility] [place] [address] * (ABNORMAL) Hemogram (11/14/2017 5:08 AM EDT) White Blood Cell 5.7 4.0 - 9.5 x10(3)/ L [facility] Red Blood Cell 4.61 4.58 - 5.54 x10(6)/[facility] Hemoglobin 11.5(L) 13.7 - 16.5 gm/dL [facility] Hematocrit 37.4(L) 40.5 - 48.5 % [facility] Mean Cell Volume 81.1(L) 82.9 - 93.1 [facility] Mean Cell Hemoglobin 24.9(L) 27.5 - 32.1 pg [facility] Mean Cell Hemoglobin Concentration 30.7(L) 32.0 - 35.7 gm/dL [facility] Platelet 274 145 - 357 x10(3)/[facility] RDW Standard Deviation 48.6(H) 36.0 - 45.0 [facility] RDW coefficient of variation 16.5(H) 11.4 - 13.8 % [facility] Mean Platelet Volume 10.0 7.6 - 12.9 [facility] NRBC% auto 0.0 % [facility] NRBC Absolute 0.000 0.000 - 0.000 x10(3)/[facility] Blood specimen (specimen) 11/14/2017 5:08 AM EDT 11/14/2017 5:44 AM EDT Narrative Resulting Agency Comment Spec In Lab Yossi Morin DO HEMATOLOGY ORDERABLE S Performing Organization Address City/[facility]/ZIP Co de Phone Number [facility] [address] * Magnesium (11/14/2017 5:08 AM EDT) Magnesium 0.84 0.69 - 1.07 mmol/L [facility] Blood specimen (specimen) 11/14/2017 5:08 AM EDT 11/14/2017 5:44 AM EDT Narrative Resulting Agency Comment Spec In Lab Yossi Morin DO CHEMISTRY ORDERABLES [facility] [place] [address] * Basic Metabolic Panel (non-fasting) (11/14/2017 5:08 AM EDT) Glucose 85 65 - 199 mg/dL [facility] Comment:Diabetes: >=200 mg/d L plus symptoms Blood Urea Nitrogen 12 10 - 20 mg/dL [facility] Creatinine 0.85 0.80 - 1.50 mg/dL [facility] Sodium 143 135 - 145 mmol/L [facility] Potassium 3.5 3.5 - 5.0 mmol/L [facility] Comment: Please note: ??Patients with WBC >100,000 may have falsely elevated Potassium levels. ??For accurate Potassium quantification in these patients send serum separator tube (gold top) for subsequent determinations. ??Contact the Clinical Chemistry Laboratory if there are any questions. Chloride 103 98 - 107 mmol/L [facility] Carbon Dioxide 28 22 - 31 mmol/L [facility] Anion Gap 12 5 - 15 mmol/L [facility] Calcium 9.2 8.5 - 10.5 mg/dL [facility] Est Glomerular Filtration Rate >60 >=60 [facility] Comment: The reported eGFR should be multiplied by 1.2 for patients. The MDRD is not an appropriate measure of renal function for patients with body mass extremes or in patients with acute kidney failure. [email or web address]://[email or web address] [email or web address] Blood specimen (specimen) 11/14/2017 5:08 AM EDT 11/14/2017 5:44 AM EDT Narrative Resulting Agency Comment Spec In Lab Yossi Morin DO CHEMISTRY ORDERABLES Performing Organization Address [facility]/ZIP Co de Phone Number [facility] [address] * Sodium (11/13/2017 7:16 PM EDT) Sodium 142 135 - 145 mmol/L [facility] Blood specimen (specimen) 11/13/2017 7:16 PM EDT 11/13/2017 7:26 PM EDT Narrative Resulting Agency Comment Spec In Lab Yossi Morin DO CHEMISTRY ORDERABLES Performing Organization Address [facility] de Phone Number [facility] [place] [address] * (ABNORMAL) Basic Metabolic Panel (non-fasting) (11/13/2017 6:33 AM EDT) Glucose 101 65 - 199 mg/dL [facility] Comment:Diabetes: >=200 mg/d L plus symptoms Blood Urea Nitrogen 11 10 - 20 mg/dL [facility] Creatinine 0.77(L) 0.80 - 1.50 mg/dL [facility] Sodium 148(H) 135 - 145 mmol/L [facility] Potassium Not Perf 3.5 - 5.0 mmol/L [facility] Comment: Unable to quantitate due to sample hemolysis. ??Sample redraw suggested. Called by: [facility], Read back by: Adia Clarke, Date/Time:11/13/17 09:21. Please note: ??Patients with WBC >100,000 may have falsely elevated Potassium levels. ??For accurate Potassium quantification in these patients send serum separator tube (gold top) for subsequent determinations. ??Contact the Clinical Chemistry Laboratory if there are any questions. Chloride 109(H) 98 - 107 mmol/L [facility] Carbon Dioxide Not Perf 22 - 31 mmol/L [facility] Comment: Lipemic interference. TLH Corrected from 26 mMol/L on 11/13/17 07:54 by Tammie Caldwell Anion Gap Not Calculated 5 - 15 mmol/L [facility] Calcium 8.8 8.5 - 10.5 mg/dL [facility] Est Glomerular Filtration Rate >60 >=60 [facility] Comment: The reported eGFR should be multiplied by 1.2 for patients. The MDRD is not an appropriate measure of renal function for patients with body mass extremes or in patients with acute kidney failure. [email or web address] [email or web address] Blood specimen (specimen) 11/13/2017 6:33 AM EDT 11/13/2017 6:45 AM EDT Narrative Resulting Agency Comment Spec In Lab Yossi Morin DO CHEMISTRY ORDERABLES Performing Organization Address City/State/[facility] Co de Phone Number [facility] [address] * (ABNORMAL) Basic Metabolic Panel (non-fasting) (11/10/2017 7:36 AM EDT) Glucose 84 65 - 199 mg/dL [facility] Comment:Diabetes: >=200 mg/d L plus symptoms Blood Urea Nitrogen 18 10 - 20 mg/dL [facility] Creatinine 0.87 0.80 - 1.50 mg/dL [facility] Comment:Specimen ultracentri fuged due to gross lipemia Sodium 145 135 - 145 mmol/L [facility] Comment:Specimen ultracentri fuged due to gross lipemia Potassium 3.7 3.5 - 5.0 mmol/L [facility] Comment: Please note: ??Patients with WBC >100,000 may have falsely elevated Potassium levels. ??For accurate Potassium quantification in these patients send serum separator tube (gold top) for subsequent determinations. ??Contact the Clinical Chemistry Laboratory if there are any questions. Chloride 99 98 - 107 mmol/L [facility] Carbon Dioxide 26 22 - 31 mmol/L [facility] Anion Gap 20(H) 5 - 15 mmol/L [facility] Calcium 8.9 8.5 - 10.5 mg/dL [facility] Est Glomerular Filtration Rate >60 >=60 [facility] Comment: The reported eGFR should be multiplied by 1.2 for patients. The MDRD is not an appropriate measure of renal function for patients with body mass extremes or in patients with acute kidney failure. [email or web address] [email or web address] Blood specimen (specimen) 11/10/2017 7:36 AM EDT 11/10/2017 7:40 AM EDT Narrative Resulting Agency Comment Spec In Lab Prosper Courtney APRN CHEMISTRY ORDERABLES [facility] [address] * Basic Metabolic Panel (non-fasting) (11/10/2017 6:24 AM EDT) Glucose 88 65 - 199 mg/dL [facility] Comment:Diabetes: >=200 mg/d L plus symptoms Blood Urea Nitrogen 18 10 - 20 mg/dL [facility] Creatinine Not Perf 0.80 - 1.50 [facility] Comment: Unable to quantitate due to sample hemolysis. ??Sample redraw suggested. Called by: RENITA, Read back by: Emerald Domínguez, Date/Time:11/10/17 07:17. Sodium Not Perf 135 - 145 [facility] Comment: Unable to quantitate due to sample hemolysis. ??Sample redraw suggested. Called by: RENITA, Read back by: Emerald Domínguez, Date/Time:11/10/17 07:17. Potassium Not Perf 3.5 - 5.0 mmol/L [facility] Comment: Unable to quantitate due [...] questions. Chloride 98 98 - 107 mmol/L [facility] Carbon Dioxide 27 22 - 31 mmol/L [facility] Anion Gap Unable to Calculate 5 - 15 mmol/L [facility] Calcium 8.8 8.5 - 10.5 mg/dL [facility] Est Glomerular Filtration Rate Not Calculated >=60 [facility] Comment: The reported eGFR should be multiplied by 1.2 for patients. The MDRD is not an appropriate measure of renal function for patients with body mass extremes or in patients with acute kidney failure. [email or web address] [email or web address] Blood specimen (specimen) 11/10/2017 6:24 AM EDT 11/10/2017 6:33 AM EDT Narrative Resulting Agency Comment Spec In Lab Yossi Morin DO CHEMISTRY ORDERABLES [facility] [address] * (ABNORMAL) Basic Metabolic Panel (non-fasting) (11/09/2017 8:41 PM EDT) Glucose 119 65 - 199 mg/dL [facility] Comment:Diabetes: >=200 mg/d L plus symptoms Blood Urea Nitrogen 18 10 - 20 mg/dL [facility] Creatinine 1.01 0.80 - 1.50 mg/dL [facility] Comment:Specimen ultracentri fuged due to gross lipemia Sodium 145 135 - 145 mmol/L [facility] Comment:Specimen ultracentri fuged due to gross lipemia Potassium Not Perf 3.5 - 5.0 mmol/L [facility] Comment: Unable to quantitate due [...] questions. Chloride 104 98 - 107 mmol/L [facility] Comment:Specimen ultracentri fuged due to gross lipemia Carbon Dioxide 23 22 - 31 mmol/L [facility] Anion Gap 18(H) 5 - 15 mmol/L [facility] Calcium 8.9 8.5 - 10.5 mg/dL [facility] Est Glomerular Filtration Rate >60 >=60 [facility] Comment: The reported eGFR should be multiplied by 1.2 for patients. The MDRD is not an appropriate measure of renal function for patients with body mass extremes or in patients with acute kidney failure. [email or web address]://[email or web address] [email or web address] Blood specimen (specimen) 11/09/2017 8:41 PM EDT 11/09/2017 8:46 PM EDT Narrative Resulting Agency Comment Spec In Lab Yossi Morin DO CHEMISTRY ORDERABLES [facility] [place] [address] * Sodium (11/03/2017 4:03 AM EDT) Sodium 140 135 - 145 mmol/L [facility] Blood specimen (specimen) 11/03/2017 4:03 AM EDT 11/03/2017 4:36 AM EDT Narrative Resulting Agency Comment Spec In Lab Juliet Medeiros APRN CHEMISTRY ORDERABLES Performing Organization Address City/[facility]/ZIP Co de Phone Number [facility] [place] [address] * Sodium (11/02/2017 7:38 AM EDT) Sodium 136 135 - 145 mmol/L [facility] Blood specimen (specimen) 11/02/2017 7:38 AM EDT 11/02/2017 8:15 AM EDT Narrative Resulting Agency Comment Spec In Lab Juliet Medeiros APRN CHEMISTRY ORDERABLES Performing Organization Address City/[facility]/ZIP Co de Phone Number [facility] [place] [address] * Sodium (11/01/2017 5:01 AM EDT) Sodium 138 135 - 145 mmol/L [facility] Blood specimen (specimen) 11/01/2017 5:01 AM EDT 11/01/2017 5:34 AM EDT Narrative Resulting Agency Comment Spec In Lab Dillon Koch MD CHEMISTRY ORDERABLES Performing Organization Address City/[facility]/ZIP Co de Phone Number [facility] [address] * Sodium (10/31/2017 10:19 AM EDT) Sodium 139 135 - 145 mmol/L [facility] Blood specimen (specimen) 10/31/2017 10:19 AM EDT 10/31/2017 10:39 AM EDT Narrative Resulting Agency Comment Spec In Lab Dillon Koch MD CHEMISTRY ORDERABLES Performing Organization Address City/[facility]/ZIP Co de Phone Number [facility] [address] * (ABNORMAL) Sodium (10/31/2017 6:37 AM EDT) Sodium 134(L) 135 - 145 mmol/L [facility] Blood specimen (specimen) 10/31/2017 6:37 AM EDT 10/31/2017 6:44 AM EDT Narrative Resulting Agency Comment Spec In Lab Dillon Koch MD CHEMISTRY ORDERABLES Performing Organization Address City/[facility]/ZIP Co de Phone Number [facility] [place] [address] * Sodium (10/30/2017 3:53 AM EDT) Sodium 135 135 - 145 mmol/L [facility] Blood specimen (specimen) 10/30/2017 3:53 AM EDT 10/30/2017 3:58 AM EDT Narrative Resulting Agency Comment Spec In Lab Juliet Medeiros APRN CHEMISTRY ORDERABLES Performing Organization Address [facility] Co de Phone Number [facility] [place] [address] * Sodium (10/29/2017 5:54 AM EDT) Sodium 138 135 - 145 mmol/L [facility] Comment:Called by: [facility], Read back by: Jeannette, Date/Time:10/29/17 08:24. Blood specimen (specimen) 10/29/2017 5:54 AM EDT 10/29/2017 6:22 AM EDT Narrative Resulting Agency Comment Spec In Lab Juliet Medeiros APRN CHEMISTRY ORDERABLES Performing Organization Address [facility] Co de Phone Number [facility] [address] * Basic Metabolic Panel (non-fasting) (10/28/2017 9:22 AM EDT) Glucose 116 65 - 199 mg/dL [facility] Comment:Diabetes: >=200 mg/d L plus symptoms Blood Urea Nitrogen 15 10 - 20 mg/dL [facility] Creatinine 0.85 0.80 - 1.50 mg/dL [facility] Sodium 137 135 - 145 mmol/L [facility] Potassium 3.7 3.5 - 5.0 mmol/L [facility] Comment: Please note: ??Patients with WBC >100,000 may have falsely elevated Potassium levels. ??For accurate Potassium quantification in these patients send serum separator tube (gold top) for subsequent determinations. ??Contact the Clinical Chemistry Laboratory if there are any questions. Chloride 99 98 - 107 mmol/L [facility] Carbon Dioxide 24 22 - 31 mmol/L [facility] Anion Gap 14 5 - 15 mmol/L [facility] Calcium 9.1 8.5 - 10.5 mg/dL [facility] Est Glomerular Filtration Rate >60 >=60 [facility] Comment: The reported eGFR should be multiplied by 1.2 for patients. The MDRD is not an appropriate measure of renal function for patients with body mass extremes or in patients with acute kidney failure. [email or web address] Blood specimen (specimen) 10/28/2017 9:22 AM EDT 10/28/2017 9:31 AM EDT Narrative Resulting Agency Comment Spec In Lab Dillon Koch MD CHEMISTRY ORDERABLES [facility] [place] [address] * BMP w/fasting Glucose (10/28/2017 3:24 AM EDT) Glucose Fasting 82 65 - 99 mg/dL [facility] Comment: ?Fasting* Glucose Interpretive Criteria [...] of Diabetes Mellitus, Position Statement from the [place] [employer]. ??Diabetes Care, Volume 33, Supplement 1, Jul 2009 Blood Urea Nitrogen 16 10 - 20 mg/dL [facility] Creatinine 0.85 0.80 - 1.50 mg/dL [facility] Sodium 139 135 - 145 mmol/L [facility] Potassium 3.7 3.5 - 5.0 mmol/L [facility] Comment: Please note: ??Patients with WBC >100,000 may have falsely elevated Potassium levels. ??For accurate Potassium quantification in these patients send serum separator tube (gold top) for subsequent determinations. ??Contact the Clinical Chemistry Laboratory if there are any questions. Chloride 99 98 - 107 mmol/L [facility] Carbon Dioxide 26 22 - 31 mmol/L [facility] Anion Gap 14 5 - 15 mmol/L [facility] Calcium 8.9 8.5 - 10.5 mg/dL [facility] Est Glomerular Filtration Rate >60 >=60 [facility] Comment: The reported eGFR should be multiplied by 1.2 for patients. The MDRD is not an appropriate measure of renal function for patients with body mass extremes or in patients with acute kidney failure. [email or web address] Blood specimen (specimen) 10/28/2017 3:24 AM EDT 10/28/2017 3:42 AM EDT Narrative Resulting Agency Comment Spec In Lab Isable Donis MD CHEMISTRY ORDERABLES [facility] [place] [address] * Sodium (10/27/2017 6:16 AM EDT) Sodium 140 135 - 145 mmol/L [facility] Blood specimen (specimen) 10/27/2017 6:16 AM EDT 10/27/2017 6:21 AM EDT Narrative Resulting Agency Comment Spec In Lab Juliet Medeiros MAX CHEMISTRY ORDERABLES [facility] [place] [address] * BMP w/fasting Glucose (10/25/2017 3:16 AM EDT) Glucose Fasting 79 65 - 99 mg/dL [facility] Comment: ?Fasting* Glucose Interpretive Criteria [...] of Diabetes Mellitus, Position Statement from the [place] [employer]. ??Diabetes Care, Volume 33, Supplement 1, Jul 2009 Blood Urea Nitrogen 17 10 - 20 mg/dL [facility] Creatinine 0.90 0.80 - 1.50 mg/dL [facility] Sodium 139 135 - 145 mmol/L [facility] Potassium 3.7 3.5 - 5.0 mmol/L [facility] Comment: Please note: ??Patients with WBC >100,000 may have falsely elevated Potassium levels. ??For accurate Potassium quantification in these patients send serum separator tube (gold top) for subsequent determinations. ??Contact the Clinical Chemistry Laboratory if there are any questions. Chloride 100 98 - 107 mmol/L [facility] Carbon Dioxide 26 22 - 31 mmol/L [facility] Anion Gap 13 5 - 15 mmol/L [facility] Calcium 9.2 8.5 - 10.5 mg/dL [facility] Est Glomerular Filtration Rate >60 >=60 [facility] Comment: The reported eGFR should be multiplied by 1.2 for patients. The MDRD is not an appropriate measure of renal function for patients with body mass extremes or in patients with acute kidney failure. [email or web address] Blood specimen (specimen) 10/25/2017 3:16 AM EDT 10/25/2017 3:42 AM EDT Narrative Resulting Agency Comment Spec In Lab Isabel Donis MD CHEMISTRY ORDERABLES [facility] [place] [address] * (ABNORMAL) Differential, Automated (10/22/2017 5:02 AM EDT) Neutrophil % 47.9 % [facility] Neutrophil Absolute 3.14 1.70 - 6.10 x10(3)/mc L [facility] Lymph % 36.0 % [facility] Lymphocytes Abs 2.4 0.9 - 3.2 x10(3)/mc L [facility] Monocyte % 10.7 % [facility] Monocyte Abs 0.7 0.3 - 0.9 x10(3)/mc L [facility] Eos % 3.7 % [facility] Eosinophils Abs 0.2 0.0 - 0.4 x10(3)/mc L [facility] Basophil % 0.8 % [facility] Baso Absolute 0.0 0.0 - 0.1 x10(3)/mc L [facility] Immature Gran % 0.90 % [facility] Comment: Immature granulocytes(IG's)percentage and absolute count will include metamyelocytes, myelocytes, and promyelocytes. Blood smears from CBCs yielding IG's will be scanned manually for concordance. If this scan disagrees with the automated IG or if promyelocytes are noted, a manual differential will be performed. Immature Gran Absolute 0.06(H) 0.00 - 0.04 x10(3)/ L [facility] Blood specimen (specimen) 10/22/2017 5:02 AM EDT 10/22/2017 5:10 AM EDT Narrative Resulting Agency Comment Spec In Lab Kemi Camp MAX HEMATOLOGY ORDERA BLES [facility] [place] [address] * (ABNORMAL) Hemogram (10/22/2017 5:02 AM EDT) White Blood Cell 6.6 4.0 - 9.5 x10(3)/[facility] Red Blood Cell 5.06 4.58 - 5.54 x10(6)/ L [facility] Hemoglobin 12.9(L) 13.7 - 16.5 gm/dL [facility] Hematocrit 40.5 40.5 - 48.5 % [facility] Mean Cell Volume 80.0(L) 82.9 - 93.1 fL [facility] Comment: This result has been called to HOLLEY MEI by Desean Pope on 10 22 2017 at 0600, and has been read back. Mean Cell Hemoglobin 25.5(L) 27.5 - 32.1 pg [facility] Mean Cell Hemoglobin Concentration 31.9(L) 32.0 - 35.7 gm/dL [facility] Platelet 339 145 - 357 x10(3)/mc L [facility] RDW Standard Deviation 45.7(H) 36.0 - 45.0 fL [facility] RDW coefficient of variation 15.8(H) 11.4 - 13.8 % [facility] Mean Platelet Volume 9.8 7.6 - 12.9 fL [facility] NRBC% auto 0.0 % [facility] NRBC Absolute 0.000 0.000 - 0.000 x10(3)/ L [facility] Blood specimen (specimen) 10/22/2017 5:02 AM EDT 10/22/2017 5:10 AM EDT Narrative Resulting Agency Comment Spec In Lab Kemipatricia Camp MAX HEMATOLOGY ORDERA BLES [facility] [place] [address] * (ABNORMAL) BMP w/fasting Glucose (10/22/2017 5:02 AM EDT) Glucose Fasting 103(H) 65 - 99 mg/dL [facility] Comment: ?Fasting* Glucose Interpretive Criteria [...] of Diabetes Mellitus, Position Statement from the [place] [employer]. ??Diabetes Care, Volume 33, Supplement 1, Jul 2009 Blood Urea Nitrogen 11 10 - 20 mg/dL [facility] Creatinine 0.74(L) 0.80 - 1.50 mg/dL [facility] Sodium 141 135 - 145 mmol/L [facility] Potassium 4.0 3.5 - 5.0 mmol/L [facility] Comment: Please note: ??Patients with WBC >100,000 may have falsely elevated Potassium levels. ??For accurate Potassium quantification in these patients send serum separator tube (gold top) for subsequent determinations. ??Contact the Clinical Chemistry Laboratory if there are any questions. Chloride 103 98 - 107 mmol/L [facility] Carbon Dioxide 22 22 - 31 mmol/L [facility] Anion Gap 16(H) 5 - 15 mmol/L [facility] Calcium 9.2 8.5 - 10.5 mg/dL [facility] Est Glomerular Filtration Rate >60 >=60 [facility] Comment: The reported eGFR should be multiplied by 1.2 for patients. The MDRD is not an appropriate measure of renal function for patients with body mass extremes or in patients with acute kidney failure. [email or web address] Blood specimen (specimen) 10/22/2017 5:02 AM EDT 10/22/2017 5:10 AM EDT Narrative Resulting Agency Comment Spec In Lab Kemi Camp APRN CHEMISTRY ORDERAB LES [facility] [place] [address] * (ABNORMAL) BMP w/fasting Glucose (10/21/2017 4:03 AM EDT) Glucose Fasting 90 65 - 99 mg/dL [facility] Comment: ?Fasting* Glucose Interpretive Criteria [...] of Diabetes Mellitus, Position Statement from the [place] [employer]. ??Diabetes Care, Volume 33, Supplement [...] of Diabetes Mellitus, Position Statement from the [place] [employer]. ??Diabetes Care, Volume 33, Supplement 1, Jul 2009 Corrected from 90 mg/dL on 10/21/17 05:22 by Hannah Saenz Blood Urea Nitrogen 16 10 - 20 mg/dL [facility] Creatinine 0.91 0.80 - 1.50 mg/dL [facility] Sodium 134(L) 135 - 145 mmol/L [facility] Potassium 4.3 3.5 - 5.0 mmol/L [facility] Comment: Please note: ??Patients with WBC >100,000 may have falsely elevated Potassium levels. ??For accurate Potassium quantification in these patients send serum separator tube (gold top) for subsequent determinations. ??Contact the Clinical Chemistry Laboratory if there are any questions. Chloride 95(L) 98 - 107 mmol/L [facility] Carbon Dioxide 23 22 - 31 mmol/L [facility] Anion Gap 16(H) 5 - 15 mmol/L [facility] Calcium 9.5 8.5 - 10.5 mg/dL [facility] Est Glomerular Filtration Rate >60 >=60 [facility] Comment: The reported eGFR should be multiplied by 1.2 for patients. The MDRD is not an appropriate measure of renal function for patients with body mass extremes or in patients with acute kidney failure. [email or web address] Blood specimen (specimen) 10/21/2017 4:03 AM EDT 10/21/2017 4:11 AM EDT Narrative Resulting Agency Comment Spec In Lab Kemi Camp APRN CHEMISTRY ORDERAB LES [facility] [address] * CT Face wo Contrast (10/20/2017 12:07 [...] [employer] of the mandible. Dillon Koch MD [facility] [place] ORDERABLES * (ABNORMAL) Basic Metabolic Panel (non-fasting) (10/19/2017 9:55 AM EDT) Glucose 92 65 - 199 mg/dL [facility] Comment:Diabetes: >=200 mg/d L plus symptoms Blood Urea Nitrogen 16 10 - 20 mg/dL [facility] Creatinine 0.98 0.80 - 1.50 mg/dL [facility] Sodium 141 135 - 145 mmol/L [facility] Potassium 3.8 3.5 - 5.0 mmol/L [facility] Comment: Please note: ??Patients with WBC >100,000 may have falsely elevated Potassium levels. ??For accurate Potassium quantification in these patients send serum separator tube (gold top) for subsequent determinations. ??Contact the Clinical Chemistry Laboratory if there are any questions. Chloride 101 98 - 107 mmol/L [facility] Carbon Dioxide 23 22 - 31 mmol/L [facility] Anion Gap 17(H) 5 - 15 mmol/L [facility] Calcium 9.1 8.5 - 10.5 mg/dL [facility] Est Glomerular Filtration Rate >60 >=60 [facility] Comment: The reported eGFR should be multiplied by 1.2 for patients. The MDRD is not an appropriate measure of renal function for patients with body mass extremes or in patients with acute kidney failure. [email or web address] Blood specimen (specimen) 10/19/2017 9:55 AM EDT 10/19/2017 9:59 AM EDT Narrative Resulting Agency Comment Spec In Lab Isabel Donis MD CHEMISTRY ORDERABLES [facility] [place] [address] * (ABNORMAL) Basic Metabolic Panel (non-fasting) (10/17/2017 6:27 PM EDT) Glucose 129 65 - 199 mg/dL [facility] Comment:Diabetes: >=200 mg/d L plus symptoms Blood Urea Nitrogen 15 10 - 20 mg/dL [facility] Creatinine 0.86 0.80 - 1.50 mg/dL [facility] Sodium 142 135 - 145 mmol/L [facility] Potassium Not Perf 3.5 - 5.0 mmol/L [facility] Comment: Unable to quantitate due to sample hemolysis. ??Sample redraw suggested. Please note: ??Patients with WBC >100,000 may have falsely elevated Potassium levels. ??For accurate Potassium quantification in these patients send serum separator tube (gold top) for subsequent determinations. ??Contact the Clinical Chemistry Laboratory if there are any questions. Chloride 102 98 - 107 mmol/L [facility] Carbon Dioxide 22 22 - 31 mmol/L [facility] Anion Gap 18(H) 5 - 15 mmol/L [facility] Calcium 8.8 8.5 - 10.5 mg/dL [facility] Est Glomerular Filtration Rate >60 >=60 [facility] Comment: The reported eGFR should be multiplied by 1.2 for patients. The MDRD is not an appropriate measure of renal function for patients with body mass extremes or in patients with acute kidney failure. [email or web address] Blood specimen (specimen) 10/17/2017 6:27 PM EDT 10/17/2017 7:26 PM EDT Narrative Resulting Agency Comment Spec In Lab Kalpana Rubin MD CHEMISTRY ORDERABLES [facility] [place] [address] * Basic Metabolic Panel (non-fasting) (10/16/2017 10:26 AM EDT) Glucose 124 65 - 199 mg/dL [facility] Comment:Diabetes: >=200 mg/d L plus symptoms Blood Urea Nitrogen 16 10 - 20 mg/dL [facility] Creatinine 0.86 0.80 - 1.50 mg/dL [facility] Sodium 141 135 - 145 mmol/L [facility] Potassium 4.0 3.5 - 5.0 mmol/L [facility] Comment: Please note: ??Patients with WBC >100,000 may have falsely elevated Potassium levels. ??For accurate Potassium quantification in these patients send serum separator tube (gold top) for subsequent determinations. ??Contact the Clinical Chemistry Laboratory if there are any questions. Chloride 104 98 - 107 mmol/L [facility] Carbon Dioxide 22 22 - 31 mmol/L [facility] Anion Gap 15 5 - 15 mmol/L [facility] Calcium 9.2 8.5 - 10.5 mg/dL [facility] Est Glomerular Filtration Rate >60 >=60 [facility] Comment: The reported eGFR should be multiplied by 1.2 for patients. The MDRD is not an appropriate measure of renal function for patients with body mass extremes or in patients with acute kidney failure. [email or web address] Blood specimen (specimen) 10/16/2017 10:26 AM EDT 10/16/2017 10:34 AM EDT Narrative Resulting Agency Comment Spec In Lab Dillon Koch MD CHEMISTRY ORDERABLES [facility] [address] * Basic Metabolic Panel (non-fasting) (10/15/2017 8:27 AM EDT) Glucose 85 65 - 199 mg/dL [facility] Comment:Diabetes: >=200 mg/d L plus symptoms Blood Urea Nitrogen 16 10 - 20 mg/dL [facility] Creatinine 0.99 0.80 - 1.50 mg/dL [facility] Sodium 140 135 - 145 mmol/L [facility] Potassium 3.7 3.5 - 5.0 mmol/L [facility] Comment: Please note: ??Patients with WBC >100,000 may have falsely elevated Potassium levels. ??For accurate Potassium quantification in these patients send serum separator tube (gold top) for subsequent determinations. ??Contact the Clinical Chemistry Laboratory if there are any questions. Chloride 101 98 - 107 mmol/L [facility] Carbon Dioxide 24 22 - 31 mmol/L [facility] Anion Gap 15 5 - 15 mmol/L [facility] Calcium 8.9 8.5 - 10.5 mg/dL [facility] Est Glomerular Filtration Rate >60 >=60 [facility] Comment: The reported eGFR should be multiplied by 1.2 for patients. The MDRD is not an appropriate measure of renal function for patients with body mass extremes or in patients with acute kidney failure. [email or web address] Blood specimen (specimen) 10/15/2017 8:27 AM EDT 10/15/2017 8:33 AM EDT Narrative Resulting Agency Comment Spec In Lab Dillon Koch MD CHEMISTRY ORDERABLES [facility] [address] * (ABNORMAL) Basic Metabolic Panel (non-fasting) (10/14/2017 1:36 PM EDT) Glucose 99 65 - 199 mg/dL [facility] Comment:Diabetes: >=200 mg/d L plus symptoms Blood Urea Nitrogen 18 10 - 20 mg/dL [facility] Creatinine 0.85 0.80 - 1.50 mg/dL [facility] Sodium 140 135 - 145 mmol/L [facility] Potassium 3.6 3.5 - 5.0 mmol/L [facility] Comment: Please note: ??Patients with WBC >100,000 may have falsely elevated Potassium levels. ??For accurate Potassium quantification in these patients send serum separator tube (gold top) for subsequent determinations. ??Contact the Clinical Chemistry Laboratory if there are any questions. Chloride 100 98 - 107 mmol/L [facility] Carbon Dioxide 23 22 - 31 mmol/L [facility] Anion Gap 17(H) 5 - 15 mmol/L [facility] Calcium 9.3 8.5 - 10.5 mg/dL [facility] Est Glomerular Filtration Rate >60 >=60 [facility] Comment: The reported eGFR should be multiplied by 1.2 for patients. The MDRD is not an appropriate measure of renal function for patients with body mass extremes or in patients with acute kidney failure. [email or web address] Blood specimen (specimen) 10/14/2017 1:36 PM EDT 10/14/2017 1:44 PM EDT Narrative Resulting Agency Comment Spec In Lab Dillon Koch MD CHEMISTRY ORDERABLES [facility] [place] [id number] * Basic Metabolic Panel (non-fasting) (10/13/2017 11:54 PM EDT) Glucose 95 65 - 199 mg/dL [facility] Comment:Diabetes: >=200 mg/d L plus symptoms Blood Urea Nitrogen 15 10 - 20 mg/dL [facility] Creatinine 0.88 0.80 - 1.50 mg/dL [facility] Sodium 140 135 - 145 mmol/L [facility] Potassium 3.8 3.5 - 5.0 mmol/L [facility] Comment: Please note: ??Patients with WBC >100,000 may have falsely elevated Potassium levels. ??For accurate Potassium quantification in these patients send serum separator tube (gold top) for subsequent determinations. ??Contact the Clinical Chemistry Laboratory if there are any questions. Chloride 103 98 - 107 mmol/L [facility] Carbon Dioxide 24 22 - 31 mmol/L [facility] Anion Gap 13 5 - 15 mmol/L [facility] Calcium 8.6 8.5 - 10.5 mg/dL [facility] Est Glomerular Filtration Rate >60 >=60 [facility] Comment: The reported eGFR should be multiplied by 1.2 for patients. The MDRD is not an appropriate measure of renal function for patients with body mass extremes or in patients with acute kidney failure. [email or web address] Blood specimen (specimen) 10/13/2017 11:54 PM EDT 10/13/2017 11:57 PM EDT Narrative Resulting Agency Comment Spec In Lab Dillon Koch MD CHEMISTRY ORDERABLES [facility] [address] * (ABNORMAL) Basic Metabolic Panel (non-fasting) (10/13/2017 6:12 PM EDT) Glucose 107 65 - 199 mg/dL [facility] Comment:Diabetes: >=200 mg/d L plus symptoms Blood Urea Nitrogen 14 10 - 20 mg/dL [facility] Creatinine 0.69(L) 0.80 - 1.50 mg/dL [facility] Sodium 143 135 - 145 mmol/L [facility] Potassium 3.8 3.5 - 5.0 mmol/L [facility] Comment: Please note: ??Patients with WBC >100,000 may have falsely elevated Potassium levels. ??For accurate Potassium quantification in these patients send serum separator tube (gold top) for subsequent determinations. ??Contact the Clinical Chemistry Laboratory if there are any questions. Chloride 104 98 - 107 mmol/L [facility] Carbon Dioxide 23 22 - 31 mmol/L [facility] Anion Gap 16(H) 5 - 15 mmol/L [facility] Calcium 8.7 8.5 - 10.5 mg/dL [facility] Est Glomerular Filtration Rate >60 >=60 [facility] [facility] Comment: The reported eGFR should be multiplied by 1.2 for patients. The MDRD is not an appropriate measure of renal function for patients with body mass extremes or in patients with acute kidney failure. [email or web address] Blood specimen (specimen) 10/13/2017 6:12 PM EDT 10/13/2017 6:18 PM EDT Narrative Resulting Agency Comment Spec In Lab Dillon Koch MD CHEMISTRY ORDERABLES [facility] [place] [address] * XR Pelvis Judet or In Out [...] right and left, 3 views COMPARISON: October 09 and September 19 and September 04, 2017 FINDINGS: Left [...] right and left, 3 views COMPARISON: October 09 and September 19 and September 04, 2017 FINDINGS: Left [...] EDT) Glucose 93 65 - 199 mg/dL [facility] Comment:Diabetes: >=200 mg/d L plus symptoms Blood Urea Nitrogen 16 10 - 20 mg/dL [facility] Creatinine 0.74(L) 0.80 - 1.50 mg/dL [facility] Sodium 144 135 - 145 mmol/L [facility] Potassium 3.9 3.5 - 5.0 mmol/L [facility] Comment: Please note: ??Patients with WBC >100,000 may have falsely elevated Potassium levels. ??For accurate Potassium quantification in these patients send serum separator tube (gold top) for subsequent determinations. ??Contact the Clinical Chemistry Laboratory if there are any questions. Chloride 105 98 - 107 mmol/L [facility] Carbon Dioxide 23 22 - 31 mmol/L [facility] Anion Gap 16(H) 5 - 15 mmol/L [facility] Calcium 9.1 8.5 - 10.5 mg/dL [facility] Est Glomerular Filtration Rate >60 >=60 [facility] Comment: The reported eGFR should be multiplied by 1.2 for patients. The MDRD is not an appropriate measure of renal function for patients with body mass extremes or in patients with acute kidney failure. [email or web address] Blood specimen (specimen) 10/13/2017 3:34 AM EDT 10/13/2017 4:00 AM EDT Narrative Resulting Agency Comment Spec In Lab Dillon Koch MD CHEMISTRY ORDERABLES [facility] [place] [address] * (ABNORMAL) Basic Metabolic Panel (non-fasting) (10/12/2017 7:09 PM EDT) Glucose 80 65 - 199 mg/dL [facility] Comment:Diabetes: >=200 mg/d L plus symptoms Blood Urea Nitrogen 17 10 - 20 mg/dL [facility] Creatinine 0.80 0.80 - 1.50 mg/dL [facility] Sodium 148(H) 135 - 145 mmol/L [facility] Potassium 3.6 3.5 - 5.0 mmol/L [facility] Comment: Please note: ??Patients with WBC >100,000 may have falsely elevated Potassium levels. ??For accurate Potassium quantification in these patients send serum separator tube (gold top) for subsequent determinations. ??Contact the Clinical Chemistry Laboratory if there are any questions. Chloride 106 98 - 107 mmol/L [facility] Carbon Dioxide 26 22 - 31 mmol/L [facility] Anion Gap 16(H) 5 - 15 mmol/L [facility] Calcium 9.2 8.5 - 10.5 mg/dL [facility] Est Glomerular Filtration Rate >60 >=60 [facility] Comment: The reported eGFR should be multiplied by 1.2 for patients. The MDRD is not an appropriate measure of renal function for patients with body mass extremes or in patients with acute kidney failure. [email or web address] Blood specimen (specimen) 10/12/2017 7:09 PM EDT 10/13/2017 5:09 AM EDT Narrative Resulting Agency Comment Spec In Lab Dillon Koch MD CHEMISTRY ORDERABLES [facility] [place] [address] * (ABNORMAL) Basic Metabolic Panel (non-fasting) (10/12/2017 11:33 AM EDT) Glucose 117 65 - 199 mg/dL [facility] Comment:Diabetes: >=200 mg/d L plus symptoms Blood Urea Nitrogen 19 10 - 20 mg/dL [facility] Creatinine 0.78(L) 0.80 - 1.50 mg/dL [facility] Sodium 146(H) 135 - 145 mmol/L [facility] Potassium 3.8 3.5 - 5.0 mmol/L [facility] Comment: Please note: ??Patients with WBC >100,000 may have falsely elevated Potassium levels. ??For accurate Potassium quantification in these patients send serum separator tube (gold top) for subsequent determinations. ??Contact the Clinical Chemistry Laboratory if there are any questions. Chloride 108(H) 98 - 107 mmol/L [facility] Carbon Dioxide 22 22 - 31 mmol/L [facility] Anion Gap 16(H) 5 - 15 mmol/L [facility] Calcium 9.2 8.5 - 10.5 mg/dL [facility] Est Glomerular Filtration Rate >60 >=60 [facility] Comment: The reported eGFR should be multiplied by 1.2 for patients. The MDRD is not an appropriate measure of renal function for patients with body mass extremes or in patients with acute kidney failure. [email or web address] Blood specimen (specimen) 10/12/2017 11:33 AM EDT 10/12/2017 11:37 AM EDT Narrative Resulting Agency Comment Spec In Lab Dillon Koch MD CHEMISTRY ORDERABLES Performing Organization Address [facility]/ZIP Co de Phone Number [facility] [place] [address] * Basic Metabolic Panel (non-fasting) (10/12/2017 3:34 AM EDT) Glucose 106 65 - 199 mg/dL [facility] Comment:Diabetes: >=200 mg/d L plus symptoms Blood Urea Nitrogen 20 10 - 20 mg/dL [facility] Creatinine 0.93 0.80 - 1.50 mg/dL [facility] Sodium 145 135 - 145 mmol/L [facility] Potassium 3.6 3.5 - 5.0 mmol/L [facility] Comment: Please note: ??Patients with WBC >100,000 may have falsely elevated Potassium levels. ??For accurate Potassium quantification in these patients send serum separator tube (gold top) for subsequent determinations. ??Contact the Clinical Chemistry Laboratory if there are any questions. Chloride 104 98 - 107 mmol/L [facility] Carbon Dioxide 26 22 - 31 mmol/L [facility] Anion Gap 15 5 - 15 mmol/L [facility] Calcium 9.1 8.5 - 10.5 mg/dL [facility] Est Glomerular Filtration Rate >60 >=60 [facility] Comment: The reported eGFR should be multiplied by 1.2 for patients. The MDRD is not an appropriate measure of renal function for patients with body mass extremes or in patients with acute kidney failure. [email or web address] Blood specimen (specimen) 10/12/2017 3:34 AM EDT 10/12/2017 4:02 AM EDT Narrative Resulting Agency Comment Spec In Lab Dillon Koch MD CHEMISTRY ORDERABLES Performing Organization Address City/[facility]/ZIP Co de Phone Number [facility] [place] [place] [address] * (ABNORMAL) Basic Metabolic Panel (non-fasting) (10/11/2017 8:48 PM EDT) Glucose 129 65 - 199 mg/dL [facility] Comment:Diabetes: >=200 mg/d L plus symptoms Blood Urea Nitrogen 22(H) 10 - 20 mg/dL [facility] Creatinine 1.03 0.80 - 1.50 mg/dL [facility] Sodium 143 135 - 145 mmol/L [facility] Potassium 4.0 3.5 - 5.0 mmol/L [facility] Comment: Please note: ??Patients with WBC >100,000 may have falsely elevated Potassium levels. ??For accurate Potassium quantification in these patients send serum separator tube (gold top) for subsequent determinations. ??Contact the Clinical Chemistry Laboratory if there are any questions. Chloride 102 98 - 107 mmol/L [facility] Carbon Dioxide 22 22 - 31 mmol/L [facility] Anion Gap 19(H) 5 - 15 mmol/L [facility] Calcium 9.3 8.5 - 10.5 mg/dL [facility] Est Glomerular Filtration Rate >60 >=60 [facility] Comment: The reported eGFR should be multiplied by 1.2 for patients. The MDRD is not an appropriate measure of renal function for patients with body mass extremes or in patients with acute kidney failure. [email or web address] Blood specimen (specimen) 10/11/2017 8:48 PM EDT 10/11/2017 8:51 PM EDT Narrative Resulting Agency Comment Spec In Lab Dillon Koch MD CHEMISTRY ORDERABLES [facility] [place] [address] * (ABNORMAL) Basic Metabolic Panel (non-fasting) (10/11/2017 11:46 AM EDT) Glucose 123 65 - 199 mg/dL [facility] Comment:Diabetes: >=200 mg/d L plus symptoms Blood Urea Nitrogen 20 10 - 20 mg/dL [facility] Creatinine 1.10 0.80 - 1.50 mg/dL [facility] Sodium 144 135 - 145 mmol/L [facility] Potassium 4.1 3.5 - 5.0 mmol/L [facility] Comment: Please note: ??Patients with WBC >100,000 may have falsely elevated Potassium levels. ??For accurate Potassium quantification in these patients send serum separator tube (gold top) for subsequent determinations. ??Contact the Clinical Chemistry Laboratory if there are any questions. Chloride 104 98 - 107 mmol/L [facility] Carbon Dioxide 22 22 - 31 mmol/L [facility] Anion Gap 18(H) 5 - 15 mmol/L [facility] Calcium 9.7 8.5 - 10.5 mg/dL [facility] Est Glomerular Filtration Rate >60 >=60 [facility] Comment: The reported eGFR should be multiplied by 1.2 for patients. The MDRD is not an appropriate measure of renal function for patients with body mass extremes or in patients with acute kidney failure. [email or web address] Blood specimen (specimen) 10/11/2017 11:46 AM EDT 10/11/2017 11:54 AM EDT Narrative Resulting Agency Comment Spec In Lab Dillon Koch MD CHEMISTRY ORDERABLES [facility] [place] [address] * (ABNORMAL) Basic Metabolic Panel (non-fasting) (10/11/2017 6:05 AM EDT) Glucose 84 65 - 199 mg/dL [facility] Comment:Diabetes: >=200 mg/d L plus symptoms Blood Urea Nitrogen 21(H) 10 - 20 mg/dL [facility] Creatinine 1.09 0.80 - 1.50 mg/dL [facility] Sodium 151(H) 135 - 145 mmol/L [facility] Potassium 3.8 3.5 - 5.0 mmol/L [facility] Comment: Please note: ??Patients with WBC >100,000 may have falsely elevated Potassium levels. ??For accurate Potassium quantification in these patients send serum separator tube (gold top) for subsequent determinations. ??Contact the Clinical Chemistry Laboratory if there are any questions. Chloride 109(H) 98 - 107 mmol/L [facility] Carbon Dioxide 24 22 - 31 mmol/L [facility] Anion Gap 18(H) 5 - 15 mmol/L [facility] Calcium 9.5 8.5 - 10.5 mg/dL [facility] Est Glomerular Filtration Rate >60 >=60 [facility] Comment: The reported eGFR should be multiplied by 1.2 for patients. The MDRD is not an appropriate measure of renal function for patients with body mass extremes or in patients with acute kidney failure. [email or web address] Blood specimen (specimen) 10/11/2017 6:05 AM EDT 10/11/2017 6:38 AM EDT Narrative Resulting Agency Comment Spec In Lab Dillon Koch MD CHEMISTRY ORDERABLES [facility] [place] [address] * (ABNORMAL) Basic Metabolic Panel (non-fasting) (10/10/2017 8:05 PM EDT) Glucose 107 65 - 199 mg/dL [facility] Comment:Diabetes: >=200 mg/d L plus symptoms Blood Urea Nitrogen 24(H) 10 - 20 mg/dL [facility] Creatinine 1.35 0.80 - 1.50 mg/dL [facility] Sodium 153(H) 135 - 145 mmol/L [facility] Potassium 3.9 3.5 - 5.0 mmol/L [facility] Comment: Please note: ??Patients with WBC >100,000 may have falsely elevated Potassium levels. ??For accurate Potassium quantification in these patients send serum separator tube (gold top) for subsequent determinations. ??Contact the Clinical Chemistry Laboratory if there are any questions. Chloride 112(H) 98 - 107 mmol/L [facility] Carbon Dioxide 23 22 - 31 mmol/L [facility] Anion Gap 18(H) 5 - 15 mmol/L [facility] Calcium 9.5 8.5 - 10.5 mg/dL [facility] Est Glomerular Filtration Rate >60 >=60 [facility] Comment: The reported eGFR should be multiplied by 1.2 for patients. The MDRD is not an appropriate measure of renal function for patients with body mass extremes or in patients with acute kidney failure. [email or web address] Blood specimen (specimen) 10/10/2017 8:05 PM EDT 10/10/2017 8:11 PM EDT Narrative Resulting Agency Comment Spec In Lab Dillon Koch MD CHEMISTRY ORDERABLES [facility] [place] [address] * (ABNORMAL) Basic Metabolic Panel (non-fasting) (10/10/2017 11:24 AM EDT) Glucose 96 65 - 199 mg/dL [facility] Comment:Diabetes: >=200 mg/d L plus symptoms Blood Urea Nitrogen 20 10 - 20 mg/dL [facility] Creatinine 1.01 0.80 - 1.50 mg/dL [facility] Sodium 150(H) 135 - 145 mmol/L [facility] Potassium 3.7 3.5 - 5.0 mmol/L [facility] Comment: Please note: ??Patients with WBC >100,000 may have falsely elevated Potassium levels. ??For accurate Potassium quantification in these patients send serum separator tube (gold top) for subsequent determinations. ??Contact the Clinical Chemistry Laboratory if there are any questions. Chloride 111(H) 98 - 107 mmol/L [facility] Carbon Dioxide 23 22 - 31 mmol/L [facility] Anion Gap 16(H) 5 - 15 mmol/L [facility] Calcium 9.8 8.5 - 10.5 mg/dL [facility] Est Glomerular Filtration Rate >60 >=60 [facility] Comment: The reported eGFR should be multiplied by 1.2 for patients. The MDRD is not an appropriate measure of renal function for patients with body mass extremes or in patients with acute kidney failure. [email or web address] Blood specimen (specimen) 10/10/2017 11:24 AM EDT 10/10/2017 11:45 AM EDT Narrative Resulting Agency Comment Spec In Lab Dillon Koch MD CHEMISTRY ORDERABLES [facility] [place] [address] * (ABNORMAL) Basic Metabolic Panel (non-fasting) (10/10/2017 3:14 AM EDT) Glucose 98 65 - 199 mg/dL [facility] Comment:Diabetes: >=200 mg/d L plus symptoms Blood Urea Nitrogen 20 10 - 20 mg/dL [facility] Creatinine 0.91 0.80 - 1.50 mg/dL [facility] Sodium 154(H) 135 - 145 mmol/L [facility] Comment:result rechecked-jt Potassium 4.2 3.5 - 5.0 mmol/L [facility] Comment: Please note: ??Patients with WBC >100,000 may have falsely elevated Potassium levels. ??For accurate Potassium quantification in these patients send serum separator tube (gold top) for subsequent determinations. ??Contact the Clinical Chemistry Laboratory if there are any questions. Chloride 114(H) 98 - 107 mmol/L [facility] Comment:result rechecked-jt Carbon Dioxide 23 22 - 31 mmol/L [facility] Anion Gap 17(H) 5 - 15 mmol/L [facility] Calcium 9.5 8.5 - 10.5 mg/dL [facility] Est Glomerular Filtration Rate >60 >=60 [facility] Comment: The reported eGFR should be multiplied by 1.2 for patients. The MDRD is not an appropriate measure of renal function for patients with body mass extremes or in patients with acute kidney failure. [email or web address] Blood specimen (specimen) 10/10/2017 3:14 AM EDT 10/10/2017 3:23 AM EDT Narrative Resulting Agency Comment Spec In Lab Jevon Rosales MD CHEMISTRY ORDERABLES Performing Organization Address City/State/[facility] Co de Phone Number [facility] [address] * XR Pelvis (Generic) (10/09/2017 4:52 PM [...] EDT) Glucose 91 65 - 199 mg/dL [facility] Comment:Diabetes: >=200 mg/d L plus symptoms Blood Urea Nitrogen 13 10 - 20 mg/dL [facility] Creatinine 0.82 0.80 - 1.50 mg/dL [facility] Sodium 135 135 - 145 mmol/L [facility] Potassium 3.6 3.5 - 5.0 mmol/L [facility] Comment: Please note: ??Patients with WBC >100,000 may have falsely elevated Potassium levels. ??For accurate Potassium quantification in these patients send serum separator tube (gold top) for subsequent determinations. ??Contact the Clinical Chemistry Laboratory if there are any questions. Chloride 97(L) 98 - 107 mmol/L [facility] Carbon Dioxide 22 22 - 31 mmol/L [facility] Anion Gap 16(H) 5 - 15 mmol/L [facility] Calcium 9.0 8.5 - 10.5 mg/dL [facility] Est Glomerular Filtration Rate >60 >=60 [facility] Comment: The reported eGFR should be multiplied by 1.2 for patients. The MDRD is not an appropriate measure of renal function for patients with body mass extremes or in patients with acute kidney failure. [email or web address] [place] CITYnkf Blood specimen (specimen) 10/08/2017 4:15 AM EDT 10/08/2017 4:46 AM EDT Narrative Resulting Agency Comment Spec In Lab Jevon Rosales MD CHEMISTRY ORDERABLES [facility] [address] * (ABNORMAL) Basic Metabolic Panel (non-fasting) (10/07/2017 4:15 AM EDT) Glucose 95 65 - 199 mg/dL [facility] Comment:Diabetes: >=200 mg/d L plus symptoms Blood Urea Nitrogen 12 10 - 20 mg/dL [facility] Creatinine 0.80 0.80 - 1.50 mg/dL [facility] Sodium 137 135 - 145 mmol/L [facility] Potassium 3.9 3.5 - 5.0 mmol/L [facility] Comment: Please note: ??Patients with WBC >100,000 may have falsely elevated Potassium levels. ??For accurate Potassium quantification in these patients send serum separator tube (gold top) for subsequent determinations. ??Contact the Clinical Chemistry Laboratory if there are any questions. Chloride 99 98 - 107 mmol/L [facility] Carbon Dioxide 22 22 - 31 mmol/L [facility] Anion Gap 16(H) 5 - 15 mmol/L [facility] Calcium 9.0 8.5 - 10.5 mg/dL [facility] Est Glomerular Filtration Rate >60 >=60 [facility] Comment: The reported eGFR should be multiplied by 1.2 for patients. The MDRD is not an appropriate measure of renal function for patients with body mass extremes or in patients with acute kidney failure. [email or web address] [place] CITYnkf Blood specimen (specimen) 10/07/2017 4:15 AM EDT 10/07/2017 4:24 AM EDT Narrative Resulting Agency Comment Spec In Lab Jevon Rosales MD CHEMISTRY ORDERABLES Performing Organization Address City/[facility]/ZIP Co de Phone Number [facility] [place] [address] * Lavender Tube HOLD (10/06/2017 4:05 AM EDT) Lavender Hold Sample in lab. [facility] Blood specimen (specimen) Venous Draw / Unknown 10/06/2017 4:05 AM EDT 10/06/2017 4:31 AM EDT Reba Linton MD HEMATOLOGY ORDER LYNDSEY Performing Organization Address [facility] Co de Phone Number [facility] [place] [address] * Basic Metabolic Panel (non-fasting) (10/06/2017 4:05 AM EDT) Glucose 103 65 - 199 mg/dL [facility] Comment:Diabetes: >=200 mg/d L plus symptoms Blood Urea Nitrogen 18 10 - 20 mg/dL [facility] Creatinine 0.88 0.80 - 1.50 mg/dL [facility] Sodium 145 135 - 145 mmol/L [facility] Potassium 3.7 3.5 - 5.0 mmol/L [facility] Comment: Please note: ??Patients with WBC >100,000 may have falsely elevated Potassium levels. ??For accurate Potassium quantification in these patients send serum separator tube (gold top) for subsequent determinations. ??Contact the Clinical Chemistry Laboratory if there are any questions. Chloride 104 98 - 107 mmol/L [facility] Carbon Dioxide 27 22 - 31 mmol/L [facility] Anion Gap 14 5 - 15 mmol/L [facility] Calcium 9.0 8.5 - 10.5 mg/dL [facility] Est Glomerular Filtration Rate >60 >=60 [facility] Comment: The reported eGFR should be multiplied by 1.2 for patients. The MDRD is not an appropriate measure of renal function for patients with body mass extremes or in patients with acute kidney failure. [email or web address] Blood specimen (specimen) 10/06/2017 4:05 AM EDT 10/06/2017 4:31 AM EDT Narrative Resulting Agency Comment Spec In Lab Reba Linton MD CHEMISTRY ORDERA BLES [facility] [address] * (ABNORMAL) Basic Metabolic Panel (non-fasting) (10/05/2017 2:35 PM EDT) Glucose 86 65 - 199 mg/dL [facility] Comment:Diabetes: >=200 mg/d L plus symptoms Blood Urea Nitrogen 18 10 - 20 mg/dL [facility] Creatinine 1.03 0.80 - 1.50 mg/dL [facility] Sodium 148(H) 135 - 145 mmol/L [facility] Potassium 4.0 3.5 - 5.0 mmol/L [facility] Comment: Please note: ??Patients with WBC >100,000 may have falsely elevated Potassium levels. ??For accurate Potassium quantification in these patients send serum separator tube (gold top) for subsequent determinations. ??Contact the Clinical Chemistry Laboratory if there are any questions. Chloride 105 98 - 107 mmol/L [facility] Carbon Dioxide 28 22 - 31 mmol/L [facility] Anion Gap 15 5 - 15 mmol/L [facility] Calcium 9.3 8.5 - 10.5 mg/dL [facility] Est Glomerular Filtration Rate >60 >=60 [facility] Comment: The reported eGFR should be multiplied by 1.2 for patients. The MDRD is not an appropriate measure of renal function for patients with body mass extremes or in patients with acute kidney failure. [email or web address] Blood specimen (specimen) 10/05/2017 2:35 PM EDT 10/05/2017 2:46 PM EDT Narrative Resulting Agency Comment Spec In Lab Reba Linton MD CHEMISTRY ORDERA BLES [facility] [place] [address] * Differential, Automated (10/05/2017 5:55 AM EDT) Neutrophil % 42.4 % [facility] Neutrophil Absolute 2.71 1.70 - 6.10 x10(3)/[facility] Lymph % 38.2 % [facility] Lymphocytes Abs 2.4 0.9 - 3.2 x10(3)/[facility] Monocyte % 12.5 % [facility] Monocyte Abs 0.8 0.3 - 0.9 x10(3)/[facility] Eos % 5.5 % [facility] Eosinophils Abs 0.4 0.0 - 0.4 x10(3)/[facility] Basophil % 0.8 % [facility] Baso Absolute 0.0 0.0 - 0.1 x10(3)/[facility] Immature Gran % 0.60 % [facility] Comment: Immature granulocytes(IG's)percentage and absolute count will include metamyelocytes, myelocytes, and promyelocytes. Blood smears from CBCs yielding IG's will be scanned manually for concordance. If this scan disagrees with the automated IG or if promyelocytes are noted, a manual differential will be performed. Immature Gran Absolute 0.04 0.00 - 0.04 x10(3)/[facility] Blood specimen (specimen) 10/05/2017 5:55 AM EDT 10/05/2017 6:19 AM EDT Narrative Resulting Agency Comment Spec In Lab Reba Linton MD HEMATOLOGY ORDER LYNDSEY [facility] [place] [address] * (ABNORMAL) Hemogram (10/05/2017 5:55 AM EDT) White Blood Cell 6.4 4.0 - 9.5 x10(3)/[facility] LABORATORY Red Blood Cell 4.47(L) 4.58 - 5.54 x10(6)/mc L [facility] Hemoglobin 11.1(L) 13.7 - 16.5 gm/dL [facility] Hematocrit 38.6(L) 40.5 - 48.5 % [facility] Mean Cell Volume 86.4 82.9 - 93.1 fL [facility] Mean Cell Hemoglobin 24.8(L) 27.5 - 32.1 pg [facility] Mean Cell Hemoglobin Concentration 28.8(L) 32.0 - 35.7 gm/dL [facility] Platelet 281 145 - 357 x10(3)/[facility] LABORATORY RDW Standard Deviation 49.7(H) 36.0 - 45.0 [facility]ORY RDW coefficient of variation 15.7(H) 11.4 - 13.8 % [facility] Mean Platelet Volume 9.4 7.6 - 12.9 [facility]ORY NRBC% auto 0.0 % [facility] NRBC Absolute 0.000 0.000 - 0.000 x10(3)/ L [facility] Blood specimen (specimen) 10/05/2017 5:55 AM EDT 10/05/2017 6:19 AM EDT Narrative Resulting Agency Comment Spec In Lab Reba Linton MD HEMATOLOGY ORDER LYNDSEY Performing Organization Address City/[facility]/ZIP Co de Phone Number [facility] [address] * (ABNORMAL) Basic Metabolic Panel (non-fasting) (10/05/2017 3:51 AM EDT) Glucose 105 65 - 199 mg/dL [facility] Comment:Diabetes: >=200 mg/d L plus symptoms Blood Urea Nitrogen 19 10 - 20 mg/dL [facility] Creatinine 1.07 0.80 - 1.50 mg/dL [facility] Sodium 148(H) 135 - 145 mmol/L [facility] Potassium 3.9 3.5 - 5.0 mmol/L [facility] Comment: Please note: ??Patients with WBC >100,000 may have falsely elevated Potassium levels. ??For accurate Potassium quantification in these patients send serum separator tube (gold top) for subsequent determinations. ??Contact the Clinical Chemistry Laboratory if there are any questions. Chloride 107 98 - 107 mmol/L [facility] Carbon Dioxide 27 22 - 31 mmol/L [facility] Anion Gap 14 5 - 15 mmol/L [facility] Calcium 9.4 8.5 - 10.5 mg/dL [facility] Est Glomerular Filtration Rate >60 >=60 [facility] Comment: The reported eGFR should be multiplied by 1.2 for patients. The MDRD is not an appropriate measure of renal function for patients with body mass extremes or in patients with acute kidney failure. [email or web address] Blood specimen (specimen) 10/05/2017 3:51 AM EDT 10/05/2017 4:30 AM EDT Narrative Resulting Agency Comment Spec In Lab Reba Linton MD CHEMISTRY ORDERA BLES Performing Organization Address City/[facility]/ZIP Co de Phone Number [facility] [address] * (ABNORMAL) Basic Metabolic Panel (non-fasting) (10/04/2017 7:09 PM EDT) Glucose 120 65 - 199 mg/dL [facility] Comment:Diabetes: >=200 mg/d L plus symptoms Blood Urea Nitrogen 19 10 - 20 mg/dL [facility] Creatinine 1.16 0.80 - 1.50 mg/dL [facility] Sodium 147(H) 135 - 145 mmol/L [facility] Potassium 3.7 3.5 - 5.0 mmol/L [facility] Comment: Please note: ??Patients with WBC >100,000 may have falsely elevated Potassium levels. ??For accurate Potassium quantification in these patients send serum separator tube (gold top) for subsequent determinations. ??Contact the Clinical Chemistry Laboratory if there are any questions. Chloride 104 98 - 107 mmol/L [facility] Carbon Dioxide 29 22 - 31 mmol/L [facility] Anion Gap 14 5 - 15 mmol/L [facility] Calcium 9.4 8.5 - 10.5 mg/dL [facility] Est Glomerular Filtration Rate >60 >=60 [facility] Comment: The reported eGFR should be multiplied by 1.2 for patients. The MDRD is not an appropriate measure of renal function for patients with body mass extremes or in patients with acute kidney failure. [email or web address] Blood specimen (specimen) 10/04/2017 7:09 PM EDT 10/04/2017 7:13 PM EDT Narrative Resulting Agency Comment Spec In Lab Kemi Camp APRN CHEMISTRY ORDERAB LES Performing Organization Address City/[facility]/ZIP Co de Phone Number [facility] [address] * (ABNORMAL) Basic Metabolic Panel (non-fasting) (10/04/2017 12:48 PM EDT) Glucose 92 65 - 199 mg/dL [facility] Comment:Diabetes: >=200 mg/d L plus symptoms Blood Urea Nitrogen 20 10 - 20 mg/dL [facility] Creatinine 0.97 0.80 - 1.50 mg/dL [facility] Sodium 147(H) 135 - 145 mmol/L [facility] Potassium 3.8 3.5 - 5.0 mmol/L [facility] Comment: Please note: ??Patients with WBC >100,000 may have falsely elevated Potassium levels. ??For accurate Potassium quantification in these patients send serum separator tube (gold top) for subsequent determinations. ??Contact the Clinical Chemistry Laboratory if there are any questions. Chloride 103 98 - 107 mmol/L [facility] Carbon Dioxide 29 22 - 31 mmol/L [facility] Anion Gap 15 5 - 15 mmol/L [facility] Calcium 9.5 8.5 - 10.5 mg/dL [facility] Est Glomerular Filtration Rate >60 >=60 [facility] Comment: The reported eGFR should be multiplied by 1.2 for patients. The MDRD is not an appropriate measure of renal function for patients with body mass extremes or in patients with acute kidney failure. [email or web address] Blood specimen (specimen) 10/04/2017 12:48 PM EDT 10/04/2017 1:00 PM EDT Narrative Resulting Agency Comment Spec In Lab Kemi Camp APRN CHEMISTRY ORDERAB LES [facility] [place] [address] * (ABNORMAL) Basic Metabolic Panel (non-fasting) (10/04/2017 5:01 AM EDT) Glucose 94 65 - 199 mg/dL [facility] Comment:Diabetes: >=200 mg/d L plus symptoms Blood Urea Nitrogen 20 10 - 20 mg/dL [facility] Creatinine 1.11 0.80 - 1.50 mg/dL [facility] Sodium 146(H) 135 - 145 mmol/L [facility] Potassium 3.8 3.5 - 5.0 mmol/L [facility] Comment: Please note: ??Patients with WBC >100,000 may have falsely elevated Potassium levels. ??For accurate Potassium quantification in these patients send serum separator tube (gold top) for subsequent determinations. ??Contact the Clinical Chemistry Laboratory if there are any questions. Chloride 103 98 - 107 mmol/L [facility] Carbon Dioxide 26 22 - 31 mmol/L [facility] Anion Gap 17(H) 5 - 15 mmol/L [facility] Calcium 9.5 8.5 - 10.5 mg/dL [facility] Est Glomerular Filtration Rate >60 >=60 [facility] Comment: The reported eGFR should be multiplied by 1.2 for patients. The MDRD is not an appropriate measure of renal function for patients with body mass extremes or in patients with acute kidney failure. [email or web address] Blood specimen (specimen) 10/04/2017 5:01 AM EDT 10/04/2017 5:44 AM EDT Narrative Resulting Agency Comment Spec In Lab Kemi Camp APRN CHEMISTRY ORDERAB LES [facility] [address] * (ABNORMAL) Basic Metabolic Panel (non-fasting) (10/03/2017 7:48 PM EDT) Glucose 86 65 - 199 mg/dL [facility] Comment:Diabetes: >=200 mg/d L plus symptoms Blood Urea Nitrogen 21(H) 10 - 20 mg/dL [facility] Creatinine 1.03 0.80 - 1.50 mg/dL [facility] Sodium 148(H) 135 - 145 mmol/L [facility] Potassium 4.3 3.5 - 5.0 mmol/L [facility] Comment: Please note: ??Patients with WBC >100,000 may have falsely elevated Potassium levels. ??For accurate Potassium quantification in these patients send serum separator tube (gold top) for subsequent determinations. ??Contact the Clinical Chemistry Laboratory if there are any questions. Chloride 104 98 - 107 mmol/L [facility] Carbon Dioxide 29 22 - 31 mmol/L [facility] Anion Gap 15 5 - 15 mmol/L [facility] Calcium 9.6 8.5 - 10.5 mg/dL [facility] Est Glomerular Filtration Rate >60 >=60 [facility] Comment: The reported eGFR should be multiplied by 1.2 for patients. The MDRD is not an appropriate measure of renal function for patients with body mass extremes or in patients with acute kidney failure. [email or web address] Blood specimen (specimen) 10/03/2017 7:48 PM EDT 10/03/2017 7:52 PM EDT Narrative Resulting Agency Comment Spec In Lab Kemi Camp APRN CHEMISTRY ORDERAB LES [facility] [address] * (ABNORMAL) Basic Metabolic Panel (non-fasting) (10/03/2017 11:36 AM EDT) Glucose 108 65 - 199 mg/dL [facility] Comment:Diabetes: >=200 mg/d L plus symptoms Blood Urea Nitrogen 15 10 - 20 mg/dL [facility] Creatinine 1.04 0.80 - 1.50 mg/dL [facility] Sodium 146(H) 135 - 145 mmol/L [facility] Potassium 3.7 3.5 - 5.0 mmol/L [facility] Comment: Please note: ??Patients with WBC >100,000 may have falsely elevated Potassium levels. ??For accurate Potassium quantification in these patients send serum separator tube (gold top) for subsequent determinations. ??Contact the Clinical Chemistry Laboratory if there are any questions. Chloride 102 98 - 107 mmol/L [facility] Carbon Dioxide 28 22 - 31 mmol/L [facility] Anion Gap 16(H) 5 - 15 mmol/L [facility] Calcium 9.9 8.5 - 10.5 mg/dL [facility] Est Glomerular Filtration Rate >60 >=60 [facility] Comment: The reported eGFR should be multiplied by 1.2 for patients. The MDRD is not an appropriate measure of renal function for patients with body mass extremes or in patients with acute kidney failure. [email or web address] Blood specimen (specimen) 10/03/2017 11:36 AM EDT 10/03/2017 12:02 PM EDT Narrative Resulting Agency Comment Spec In Lab Kemi Camp APRN CHEMISTRY ORDERAB LES [facility] [address] * (ABNORMAL) Basic Metabolic Panel (non-fasting) (10/03/2017 4:15 AM EDT) Glucose 96 65 - 199 mg/dL [facility] Comment:Diabetes: >=200 mg/d L plus symptoms Blood Urea Nitrogen 15 10 - 20 mg/dL [facility] Creatinine 0.86 0.80 - 1.50 mg/dL [facility] Sodium 146(H) 135 - 145 mmol/L [facility] Potassium 3.9 3.5 - 5.0 mmol/L [facility] Comment: Please note: ??Patients with WBC >100,000 may have falsely elevated Potassium levels. ??For accurate Potassium quantification in these patients send serum separator tube (gold top) for subsequent determinations. ??Contact the Clinical Chemistry Laboratory if there are any questions. Chloride 106 98 - 107 mmol/L [facility] Carbon Dioxide 26 22 - 31 mmol/L [facility] Anion Gap 14 5 - 15 mmol/L [facility] Calcium 9.5 8.5 - 10.5 mg/dL [facility] Est Glomerular Filtration Rate >60 >=60 [facility] Comment: The reported eGFR should be multiplied by 1.2 for patients. The MDRD is not an appropriate measure of renal function for patients with body mass extremes or in patients with acute kidney failure. [email or web address] Blood specimen (specimen) 10/03/2017 4:15 AM EDT 10/03/2017 4:25 AM EDT Narrative Resulting Agency Comment Spec In Lab Kemi Camp APRN CHEMISTRY ORDERAB LES [facility] [address] * (ABNORMAL) Basic Metabolic Panel (non-fasting) (10/02/2017 7:12 PM EDT) Glucose 114 65 - 199 mg/dL [facility] Comment:Diabetes: >=200 mg/d L plus symptoms Blood Urea Nitrogen 15 10 - 20 mg/dL [facility] Creatinine 0.95 0.80 - 1.50 mg/dL [facility] Sodium 146(H) 135 - 145 mmol/L [facility] Potassium 4.0 3.5 - 5.0 mmol/L [facility] Comment: Please note: ??Patients with WBC >100,000 may have falsely elevated Potassium levels. ??For accurate Potassium quantification in these patients send serum separator tube (gold top) for subsequent determinations. ??Contact the Clinical Chemistry Laboratory if there are any questions. Chloride 105 98 - 107 mmol/L [facility] Carbon Dioxide 24 22 - 31 mmol/L [facility] Anion Gap 17(H) 5 - 15 mmol/L [facility] Calcium 9.3 8.5 - 10.5 mg/dL [facility] Est Glomerular Filtration Rate >60 >=60 [facility] Comment: The reported eGFR should be multiplied by 1.2 for patients. The MDRD is not an appropriate measure of renal function for patients with body mass extremes or in patients with acute kidney failure. [email or web address] Blood specimen (specimen) 10/02/2017 7:12 PM EDT 10/02/2017 7:24 PM EDT Narrative Resulting Agency Comment Spec In Lab Kemi Camp APRN CHEMISTRY ORDERAB LES [facility] [place] [address] * (ABNORMAL) Basic Metabolic Panel (non-fasting) (10/02/2017 12:14 PM EDT) Glucose 84 65 - 199 mg/dL [facility] Comment:Diabetes: >=200 mg/d L plus symptoms Blood Urea Nitrogen 13 10 - 20 mg/dL [facility] Creatinine 0.84 0.80 - 1.50 mg/dL [facility] Sodium 146(H) 135 - 145 mmol/L [facility] Potassium 4.3 3.5 - 5.0 mmol/L [facility] Comment: Please note: ??Patients with WBC >100,000 may have falsely elevated Potassium levels. ??For accurate Potassium quantification in these patients send serum separator tube (gold top) for subsequent determinations. ??Contact the Clinical Chemistry Laboratory if there are any questions. Chloride 105 98 - 107 mmol/L [facility] Carbon Dioxide 25 22 - 31 mmol/L [facility] Anion Gap 16(H) 5 - 15 mmol/L [facility] Calcium 9.5 8.5 - 10.5 mg/dL [facility] Est Glomerular Filtration Rate >60 >=60 [facility] Comment: The reported eGFR should be multiplied by 1.2 for patients. The MDRD is not an appropriate measure of renal function for patients with body mass extremes or in patients with acute kidney failure. [email or web address] Blood specimen (specimen) 10/02/2017 12:14 PM EDT 10/02/2017 12:24 PM EDT Narrative Resulting Agency Comment Spec In Lab Kemi Camp APRN CHEMISTRY ORDERAB LES Performing Organization Address City/State/[facility] Co de Phone Number [facility] [address] * Basic Metabolic Panel (non-fasting) (10/02/2017 5:45 AM EDT) Glucose 83 65 - 199 mg/dL [facility] Comment:Diabetes: >=200 mg/d L plus symptoms Blood Urea Nitrogen 15 10 - 20 mg/dL [facility] Creatinine 0.85 0.80 - 1.50 mg/dL [facility] Sodium 143 135 - 145 mmol/L [facility] Potassium 4.0 3.5 - 5.0 mmol/L [facility] Comment: Please note: ??Patients with WBC >100,000 may have falsely elevated Potassium levels. ??For accurate Potassium quantification in these patients send serum separator tube (gold top) for subsequent determinations. ??Contact the Clinical Chemistry Laboratory if there are any questions. Chloride 103 98 - 107 mmol/L [facility] Carbon Dioxide 26 22 - 31 mmol/L [facility] Anion Gap 14 5 - 15 mmol/L [facility] Calcium 9.4 8.5 - 10.5 mg/dL [facility] Est Glomerular Filtration Rate >60 >=60 [facility] Comment: The reported eGFR should be multiplied by 1.2 for patients. The MDRD is not an appropriate measure of renal function for patients with body mass extremes or in patients with acute kidney failure. [email or web address] Blood specimen (specimen) 10/02/2017 5:45 AM EDT 10/02/2017 6:07 AM EDT Narrative Resulting Agency Comment Spec In Lab Kemi Camp APRN CHEMISTRY ORDERAB LES [facility] [address] * Basic Metabolic Panel (non-fasting) (10/01/2017 8:22 PM EDT) Glucose 105 65 - 199 mg/dL [facility] Comment:Diabetes: >=200 mg/d L plus symptoms Blood Urea Nitrogen 14 10 - 20 mg/dL [facility] Creatinine 0.95 0.80 - 1.50 mg/dL [facility] Sodium 139 135 - 145 mmol/L [facility] Potassium 4.3 3.5 - 5.0 mmol/L [facility] Comment: Please note: ??Patients with WBC >100,000 may have falsely elevated Potassium levels. ??For accurate Potassium quantification in these patients send serum separator tube (gold top) for subsequent determinations. ??Contact the Clinical Chemistry Laboratory if there are any questions. Chloride 100 98 - 107 mmol/L [facility] Carbon Dioxide 26 22 - 31 mmol/L [facility] Anion Gap 13 5 - 15 mmol/L [facility] Calcium 9.1 8.5 - 10.5 mg/dL [facility] Est Glomerular Filtration Rate >60 >=60 [facility] Comment: The reported eGFR should be multiplied by 1.2 for patients. The MDRD is not an appropriate measure of renal function for patients with body mass extremes or in patients with acute kidney failure. [email or web address] [email or web address] [place]nk[place] Blood specimen (specimen) 10/01/2017 8:22 PM EDT 10/01/2017 8:35 PM EDT Narrative Resulting Agency Comment Spec In Lab Kemi Camp APRN CHEMISTRY ORDERAB LES [facility] [address] * (ABNORMAL) Basic Metabolic Panel (non-fasting) (10/01/2017 12:08 PM EDT) Glucose 75 65 - 199 mg/dL [facility] Comment:Diabetes: >=200 mg/d L plus symptoms Blood Urea Nitrogen 12 10 - 20 mg/dL [facility] Creatinine 0.78(L) 0.80 - 1.50 mg/dL [facility] Sodium 137 135 - 145 mmol/L [facility] Potassium 4.3 3.5 - 5.0 mmol/L [facility] Comment: Please note: ??Patients with WBC >100,000 may have falsely elevated Potassium levels. ??For accurate Potassium quantification in these patients send serum separator tube (gold top) for subsequent determinations. ??Contact the Clinical Chemistry Laboratory if there are any questions. Chloride 97(L) 98 - 107 mmol/L [facility] Carbon Dioxide 24 22 - 31 mmol/L [facility] Anion Gap 16(H) 5 - 15 mmol/L [facility] Calcium 9.3 8.5 - 10.5 mg/dL [facility] Est Glomerular Filtration Rate >60 >=60 [facility] Comment: The reported eGFR should be multiplied by 1.2 for patients. The MDRD is not an appropriate measure of renal function for patients with body mass extremes or in patients with acute kidney failure. [email or web address] [email or web address] [place]nk[place] Blood specimen (specimen) 10/01/2017 12:08 PM EDT 10/01/2017 12:14 PM EDT Narrative Resulting Agency Comment Spec In Lab Kemi Camp MAX CHEMISTRY ORDERAB LES [facility] [place] [address] * (ABNORMAL) Basic Metabolic Panel (non-fasting) (10/01/2017 3:41 AM EDT) Glucose 99 65 - 199 mg/dL [facility] Comment:Diabetes: >=200 mg/d L plus symptoms Blood Urea Nitrogen 13 10 - 20 mg/dL [facility] Creatinine 0.70(L) 0.80 - 1.50 mg/dL [facility] Sodium 130(L) 135 - 145 mmol/L [facility] Potassium 3.8 3.5 - 5.0 mmol/L [facility] Comment: Please note: ??Patients with WBC >100,000 may have falsely elevated Potassium levels. ??For accurate Potassium quantification in these patients send serum separator tube (gold top) for subsequent determinations. ??Contact the Clinical Chemistry Laboratory if there are any questions. Chloride 93(L) 98 - 107 mmol/L [facility] Carbon Dioxide 24 22 - 31 mmol/L [facility] Anion Gap 13 5 - 15 mmol/L [facility] Calcium 8.6 8.5 - 10.5 mg/dL [facility] Est Glomerular Filtration Rate >60 >=60 [facility] Comment: The reported eGFR should be multiplied by 1.2 for patients. The MDRD is not an appropriate measure of renal function for patients with body mass extremes or in patients with acute kidney failure. [email or web address] Blood specimen (specimen) 10/01/2017 3:41 AM EDT 10/01/2017 3:53 AM EDT Narrative Resulting Agency Comment Spec In Lab Kemi Camp APRN CHEMISTRY ORDERAB LES [facility] [address] * (ABNORMAL) Basic Metabolic Panel (non-fasting) (09/30/2017 9:24 PM EDT) Glucose 106 65 - 199 mg/dL [facility] Comment:Diabetes: >=200 mg/d L plus symptoms Blood Urea Nitrogen 16 10 - 20 mg/dL [facility] LABORATORY Creatinine 0.80 0.80 - 1.50 mg/dL [facility] Sodium 131(L) 135 - 145 mmol/L [facility] Potassium 4.0 3.5 - 5.0 mmol/L [facility] Comment: Please note: ??Patients with WBC >100,000 may have falsely elevated Potassium levels. ??For accurate Potassium quantification in these patients send serum separator tube (gold top) for subsequent determinations. ??Contact the Clinical Chemistry Laboratory if there are any questions. Chloride 91(L) 98 - 107 mmol/L [facility] Carbon Dioxide 27 22 - 31 mmol/L [facility] Anion Gap 13 5 - 15 mmol/L [facility] Calcium 8.6 8.5 - 10.5 mg/dL [facility] Est Glomerular Filtration Rate >60 >=60 [facility] Comment: The reported eGFR should be multiplied by 1.2 for patients. The MDRD is not an appropriate measure of renal function for patients with body mass extremes or in patients with acute kidney failure. [email or web address] Blood specimen (specimen) 09/30/2017 9:24 PM EDT 09/30/2017 9:34 PM EDT Narrative Resulting Agency Comment Spec In Lab Kemi Camp APRN CHEMISTRY ORDERAB LES Performing Organization Address [facility]/ZIP Co de Phone Number [facility] [place] [address] * (ABNORMAL) Basic Metabolic Panel (non-fasting) (09/30/2017 12:42 PM EDT) Glucose 74 65 - 199 mg/dL [facility] Comment:Diabetes: >=200 mg/d L plus symptoms Blood Urea Nitrogen 18 10 - 20 mg/dL [facility] Creatinine 0.82 0.80 - 1.50 mg/dL [facility] Sodium 133(L) 135 - 145 mmol/L [facility] Potassium 3.6 3.5 - 5.0 mmol/L [facility] Comment: Please note: ??Patients with WBC >100,000 may have falsely elevated Potassium levels. ??For accurate Potassium quantification in these patients send serum separator tube (gold top) for subsequent determinations. ??Contact the Clinical Chemistry Laboratory if there are any questions. Chloride 94(L) 98 - 107 mmol/L [facility] Carbon Dioxide 27 22 - 31 mmol/L [facility] Anion Gap 12 5 - 15 mmol/L [facility] Calcium 8.6 8.5 - 10.5 mg/dL [facility] Est Glomerular Filtration Rate >60 >=60 [facility] Comment: The reported eGFR should be multiplied by 1.2 for patients. The MDRD is not an appropriate measure of renal function for patients with body mass extremes or in patients with acute kidney failure. [email or web address] Blood specimen (specimen) 09/30/2017 12:42 PM EDT 09/30/2017 12:53 PM EDT Narrative Resulting Agency Comment Spec In Lab Reba Linton MD CHEMISTRY ORDERA BLES Performing Organization Address [facility]/ZIP Co de Phone Number [facility] [address] * (ABNORMAL) Basic Metabolic Panel (non-fasting) (09/30/2017 6:09 AM EDT) Glucose 85 65 - 199 mg/dL [facility] Comment:Diabetes: >=200 mg/d L plus symptoms Blood Urea Nitrogen 19 10 - 20 mg/dL [facility] Creatinine 0.78(L) 0.80 - 1.50 mg/dL [facility] Sodium 133(L) 135 - 145 mmol/L [facility] Potassium 3.9 3.5 - 5.0 mmol/L [facility] Comment: Please note: ??Patients with WBC >100,000 may have falsely elevated Potassium levels. ??For accurate Potassium quantification in these patients send serum separator tube (gold top) for subsequent determinations. ??Contact the Clinical Chemistry Laboratory if there are any questions. Chloride 94(L) 98 - 107 mmol/L [facility] Carbon Dioxide 27 22 - 31 mmol/L [facility] Anion Gap 12 5 - 15 mmol/L [facility] Calcium 8.8 8.5 - 10.5 mg/dL [facility] Est Glomerular Filtration Rate >60 >=60 [facility] Comment: The reported eGFR should be multiplied by 1.2 for patients. The MDRD is not an appropriate measure of renal function for patients with body mass extremes or in patients with acute kidney failure. [email or web address] Blood specimen (specimen) 09/30/2017 6:09 AM EDT 09/30/2017 6:13 AM EDT Narrative Resulting Agency Comment Spec In Lab Reba Linton MD CHEMISTRY ORDERA BLES [facility] [place] [address] * (ABNORMAL) Basic Metabolic Panel (non-fasting) (09/29/2017 6:36 PM EDT) Glucose 94 65 - 199 mg/dL [facility] Comment:Diabetes: >=200 mg/d L plus symptoms Blood Urea Nitrogen 22(H) 10 - 20 mg/dL [facility] Creatinine 0.73(L) 0.80 - 1.50 mg/dL [facility] Sodium 136 135 - 145 mmol/L [facility] Potassium 3.9 3.5 - 5.0 mmol/L [facility] Comment: Please note: ??Patients with WBC >100,000 may have falsely elevated Potassium levels. ??For accurate Potassium quantification in these patients send serum separator tube (gold top) for subsequent determinations. ??Contact the Clinical Chemistry Laboratory if there are any questions. Chloride 96(L) 98 - 107 mmol/L [facility] Carbon Dioxide 26 22 - 31 mmol/L [facility] Anion Gap 14 5 - 15 mmol/L [facility] Calcium 8.6 8.5 - 10.5 mg/dL [facility] Est Glomerular Filtration Rate >60 >=60 [facility] Comment: The reported eGFR should be multiplied by 1.2 for patients. The MDRD is not an appropriate measure of renal function for patients with body mass extremes or in patients with acute kidney failure. [email or web address] Blood specimen (specimen) 09/29/2017 6:36 PM EDT 09/29/2017 6:41 PM EDT Narrative Resulting Agency Comment Spec In Lab Kemi Camp APRN CHEMISTRY ORDERAB LES [facility] [place] [address] * (ABNORMAL) Basic Metabolic Panel (non-fasting) (09/29/2017 10:51 AM EDT) Glucose 82 65 - 199 mg/dL [facility] Comment:Diabetes: >=200 mg/d L plus symptoms Blood Urea Nitrogen 22(H) 10 - 20 mg/dL [facility] Creatinine 0.82 0.80 - 1.50 mg/dL [facility] Sodium 140 135 - 145 mmol/L [facility] Potassium 3.7 3.5 - 5.0 mmol/L [facility] Comment: Please note: ??Patients with WBC >100,000 may have falsely elevated Potassium levels. ??For accurate Potassium quantification in these patients send serum separator tube (gold top) for subsequent determinations. ??Contact the Clinical Chemistry Laboratory if there are any questions. Chloride 99 98 - 107 mmol/L [facility] Carbon Dioxide 28 22 - 31 mmol/L [facility] Anion Gap 13 5 - 15 mmol/L [facility] Calcium 8.8 8.5 - 10.5 mg/dL [facility] Est Glomerular Filtration Rate >60 >=60 [facility] Comment: The reported eGFR should be multiplied by 1.2 for patients. The MDRD is not an appropriate measure of renal function for patients with body mass extremes or in patients with acute kidney failure. [email or web address] Blood specimen (specimen) 09/29/2017 10:51 AM EDT 09/29/2017 11:08 AM EDT Narrative Resulting Agency Comment Spec In Lab Kemi Camp APRN CHEMISTRY ORDERAB LES [facility] [address] * (ABNORMAL) Basic Metabolic Panel (non-fasting) (09/29/2017 2:17 AM EDT) Glucose 84 65 - 199 mg/dL [facility] Comment:Diabetes: >=200 mg/d L plus symptoms Blood Urea Nitrogen 23(H) 10 - 20 mg/dL [facility] Creatinine 0.98 0.80 - 1.50 mg/dL [facility] Sodium 140 135 - 145 mmol/L [facility] Potassium 3.5 3.5 - 5.0 mmol/L [facility] Comment: Please note: ??Patients with WBC >100,000 may have falsely elevated Potassium levels. ??For accurate Potassium quantification in these patients send serum separator tube (gold top) for subsequent determinations. ??Contact the Clinical Chemistry Laboratory if there are any questions. Chloride 99 98 - 107 mmol/L [facility] Carbon Dioxide 29 22 - 31 mmol/L [facility] Anion Gap 12 5 - 15 mmol/L [facility] Calcium 8.9 8.5 - 10.5 mg/dL [facility] Est Glomerular Filtration Rate >60 >=60 [facility] Comment: The reported eGFR should be multiplied by 1.2 for patients. The MDRD is not an appropriate measure of renal function for patients with body mass extremes or in patients with acute kidney failure. [email or web address] Blood specimen (specimen) 09/29/2017 2:17 AM EDT 09/29/2017 2:21 AM EDT Narrative Resulting Agency Comment Spec In Lab Kemi Camp APRN CHEMISTRY ORDERAB LES [facility] [place] [address] * (ABNORMAL) Basic Metabolic Panel (non-fasting) (09/28/2017 2:56 PM EDT) Glucose 92 65 - 199 mg/dL [facility] Comment:Diabetes: >=200 mg/d L plus symptoms Blood Urea Nitrogen 23(H) 10 - 20 mg/dL [facility] Creatinine 0.88 0.80 - 1.50 mg/dL [facility] Sodium 146(H) 135 - 145 mmol/L [facility] Potassium 4.0 3.5 - 5.0 mmol/L [facility] Comment: Please note: ??Patients with WBC >100,000 may have falsely elevated Potassium levels. ??For accurate Potassium quantification in these patients send serum separator tube (gold top) for subsequent determinations. ??Contact the Clinical Chemistry Laboratory if there are any questions. Chloride 103 98 - 107 mmol/L [facility] Carbon Dioxide 27 22 - 31 mmol/L [facility] Anion Gap 16(H) 5 - 15 mmol/L [facility] Calcium 9.3 8.5 - 10.5 mg/dL [facility] Est Glomerular Filtration Rate >60 >=60 [facility] Comment: The reported eGFR should be multiplied by 1.2 for patients. The MDRD is not an appropriate measure of renal function for patients with body mass extremes or in patients with acute kidney failure. [email or web address] Blood specimen (specimen) 09/28/2017 2:56 PM EDT 09/28/2017 3:08 PM EDT Narrative Resulting Agency Comment Spec In Lab Reba Linton MD CHEMISTRY ORDERA [facility] [address] * (ABNORMAL) Basic Metabolic Panel (non-fasting) (09/28/2017 12:13 PM EDT) Glucose 78 65 - 199 mg/dL [facility] Comment:Diabetes: >=200 mg/d L plus symptoms Blood Urea Nitrogen 22(H) 10 - 20 mg/dL [facility] Creatinine 0.86 0.80 - 1.50 mg/dL [facility] Sodium 148(H) 135 - 145 mmol/L [facility] Potassium 3.9 3.5 - 5.0 mmol/L [facility] Comment: Please note: ??Patients with WBC >100,000 may have falsely elevated Potassium levels. ??For accurate Potassium quantification in these patients send serum separator tube (gold top) for subsequent determinations. ??Contact the Clinical Chemistry Laboratory if there are any questions. Chloride 106 98 - 107 mmol/L [facility] Carbon Dioxide 27 22 - 31 mmol/L [facility] Anion Gap 15 5 - 15 mmol/L [facility] Calcium 9.3 8.5 - 10.5 mg/dL [facility] Est Glomerular Filtration Rate >60 >=60 [facility] Comment: The reported eGFR should be multiplied by 1.2 for patients. The MDRD is not an appropriate measure of renal function for patients with body mass extremes or in patients with acute kidney failure. [email or web address] Blood specimen (specimen) 09/28/2017 12:13 PM EDT 09/28/2017 12:18 PM EDT Narrative Resulting Agency Comment Spec In Lab Reba Linton MD CHEMISTRY ORDERA BLES [facility] [address] * (ABNORMAL) Basic Metabolic Panel (non-fasting) (09/28/2017 6:57 AM EDT) Glucose 86 65 - 199 mg/dL [facility] Comment:Diabetes: >=200 mg/d L plus symptoms Blood Urea Nitrogen 21(H) 10 - 20 mg/dL [facility] Creatinine 0.89 0.80 - 1.50 mg/dL [facility] Sodium 148(H) 135 - 145 mmol/L [facility] Potassium 4.0 3.5 - 5.0 mmol/L [facility] Comment: Please note: ??Patients with WBC >100,000 may have falsely elevated Potassium levels. ??For accurate Potassium quantification in these patients send serum separator tube (gold top) for subsequent determinations. ??Contact the Clinical Chemistry Laboratory if there are any questions. Chloride 107 98 - 107 mmol/L [facility] Carbon Dioxide 26 22 - 31 mmol/L [facility] Anion Gap 15 5 - 15 mmol/L [facility] Calcium 9.5 8.5 - 10.5 mg/dL [facility] Est Glomerular Filtration Rate >60 >=60 [facility] Comment: The reported eGFR should be multiplied by 1.2 for patients. The MDRD is not an appropriate measure of renal function for patients with body mass extremes or in patients with acute kidney failure. [email or web address] Blood specimen (specimen) 09/28/2017 6:57 AM EDT 09/28/2017 7:02 AM EDT Narrative Resulting Agency Comment Spec In Lab Reba Linton MD CHEMISTRY ORDERA BLES [facility] [place] [address] * (ABNORMAL) Basic Metabolic Panel (non-fasting) (09/27/2017 9:43 AM EDT) Glucose 108 65 - 199 mg/dL [facility] Comment:Diabetes: >=200 mg/d L plus symptoms Blood Urea Nitrogen 17 10 - 20 mg/dL [facility] Creatinine 1.00 0.80 - 1.50 mg/dL [facility] Sodium 147(H) 135 - 145 mmol/L [facility] Comment:result rechecked-MM Potassium 3.5 3.5 - 5.0 mmol/L [facility] Comment: Please note: ??Patients with WBC >100,000 may have falsely elevated Potassium levels. ??For accurate Potassium quantification in these patients send serum separator tube (gold top) for subsequent determinations. ??Contact the Clinical Chemistry Laboratory if there are any questions. Chloride 106 98 - 107 mmol/L [facility] Carbon Dioxide 22 22 - 31 mmol/L [facility] Anion Gap 19(H) 5 - 15 mmol/L [facility] Calcium 9.4 8.5 - 10.5 mg/dL [facility] Est Glomerular Filtration Rate >60 >=60 [facility] Comment: The reported eGFR should be multiplied by 1.2 for patients. The MDRD is not an appropriate measure of renal function for patients with body mass extremes or in patients with acute kidney failure. [email or web address] Blood specimen (specimen) 09/27/2017 9:43 AM EDT 09/27/2017 9:50 AM EDT Narrative Resulting Agency Comment Spec In Lab Kya Enriquez MD CHEMISTRY ORDERABL ES [facility] [address] * (ABNORMAL) Basic Metabolic Panel (non-fasting) (09/25/2017 12:22 PM EDT) Glucose 81 65 - 199 mg/dL [facility] Comment:Diabetes: >=200 mg/d L plus symptoms Blood Urea Nitrogen 16 10 - 20 mg/dL [facility] Creatinine 0.68(L) 0.80 - 1.50 mg/dL [facility] Sodium 137 135 - 145 mmol/L [facility] Potassium 4.0 3.5 - 5.0 mmol/L [facility] Comment: Please note: ??Patients with WBC >100,000 may have falsely elevated Potassium levels. ??For accurate Potassium quantification in these patients send serum separator tube (gold top) for subsequent determinations. ??Contact the Clinical Chemistry Laboratory if there are any questions. Chloride 98 98 - 107 mmol/L [facility] Carbon Dioxide 24 22 - 31 mmol/L [facility] Anion Gap 15 5 - 15 mmol/L [facility] Calcium 9.1 8.5 - 10.5 mg/dL [facility] Est Glomerular Filtration Rate >60 >=60 [facility] Comment: The reported eGFR should be multiplied by 1.2 for patients. The MDRD is not an appropriate measure of renal function for patients with body mass extremes or in patients with acute kidney failure. [email or web address] Blood specimen (specimen) 09/25/2017 12:22 PM EDT 09/25/2017 12:30 PM EDT Narrative Resulting Agency Comment Spec In Lab Kya Enriquez MD CHEMISTRY ORDERABL ES [facility] [address] * (ABNORMAL) Basic Metabolic Panel (non-fasting) (09/24/2017 11:40 AM EDT) Glucose 96 65 - 199 mg/dL [facility] Comment:Diabetes: >=200 mg/d L plus symptoms Blood Urea Nitrogen 13 10 - 20 mg/dL [facility] Creatinine 0.78(L) 0.80 - 1.50 mg/dL [facility] Sodium 137 135 - 145 mmol/L [facility] Potassium 4.0 3.5 - 5.0 mmol/L [facility] Comment: Please note: ??Patients with WBC >100,000 may have falsely elevated Potassium levels. ??For accurate Potassium quantification in these patients send serum separator tube (gold top) for subsequent determinations. ??Contact the Clinical Chemistry Laboratory if there are any questions. Chloride 100 98 - 107 mmol/L [facility] Carbon Dioxide 26 22 - 31 mmol/L [facility] Anion Gap 11 5 - 15 mmol/L [facility] Calcium 8.9 8.5 - 10.5 mg/dL [facility] Est Glomerular Filtration Rate >60 >=60 [facility] Comment: The reported eGFR should be multiplied by 1.2 for patients. The MDRD is not an appropriate measure of renal function for patients with body mass extremes or in patients with acute kidney failure. [email or web address] Blood specimen (specimen) 09/24/2017 11:40 AM EDT 09/24/2017 11:47 AM EDT Narrative Resulting Agency Comment Spec In Lab Kya Enriquez MD CHEMISTRY ORDERABL ES [facility] [place] [address] * XR Pelvis (Generic) (09/23/2017 5:26 PM [...] EDT) Glucose 87 65 - 199 mg/dL [facility] Comment:Diabetes: >=200 mg/d L plus symptoms Blood Urea Nitrogen 20 10 - 20 mg/dL [facility] Creatinine 0.86 0.80 - 1.50 mg/dL [facility] Sodium 139 135 - 145 mmol/L [facility] Potassium 4.1 3.5 - 5.0 mmol/L [facility] Comment: Please note: ??Patients with WBC >100,000 may have falsely elevated Potassium levels. ??For accurate Potassium quantification in these patients send serum separator tube (gold top) for subsequent determinations. ??Contact the Clinical Chemistry Laboratory if there are any questions. Chloride 100 98 - 107 mmol/L [facility] Carbon Dioxide 26 22 - 31 mmol/L [facility] Anion Gap 13 5 - 15 mmol/L [facility] Calcium 8.9 8.5 - 10.5 mg/dL [facility] Est Glomerular Filtration Rate >60 >=60 [facility] Comment: The reported eGFR should be multiplied by 1.2 for patients. The MDRD is not an appropriate measure of renal function for patients with body mass extremes or in patients with acute kidney failure. [email or web address] Blood specimen (specimen) 09/22/2017 3:32 AM EDT 09/22/2017 4:16 AM EDT Narrative Resulting Agency Comment Spec In Lab Kya Enriquez MD CHEMISTRY ORDERABL ES [facility] [address] * Basic Metabolic Panel (non-fasting) (09/21/2017 10:25 AM EDT) Glucose 92 65 - 199 mg/dL [facility] Comment:Diabetes: >=200 mg/d L plus symptoms Blood Urea Nitrogen 19 10 - 20 mg/dL [facility] Creatinine 0.87 0.80 - 1.50 mg/dL [facility] Sodium 141 135 - 145 mmol/L [facility] Potassium 3.8 3.5 - 5.0 mmol/L [facility] Comment: Please note: ??Patients with WBC >100,000 may have falsely elevated Potassium levels. ??For accurate Potassium quantification in these patients send serum separator tube (gold top) for subsequent determinations. ??Contact the Clinical Chemistry Laboratory if there are any questions. Chloride 102 98 - 107 mmol/L [facility] Carbon Dioxide 28 22 - 31 mmol/L [facility] Anion Gap 11 5 - 15 mmol/L [facility] Calcium 8.8 8.5 - 10.5 mg/dL [facility] Est Glomerular Filtration Rate >60 >=60 [facility] Comment: The reported eGFR should be multiplied by 1.2 for patients. The MDRD is not an appropriate measure of renal function for patients with body mass extremes or in patients with acute kidney failure. [email or web address] Blood specimen (specimen) 09/21/2017 10:25 AM EDT 09/21/2017 10:31 AM EDT Narrative Resulting Agency Comment Spec In Lab Kya Enriquez MD CHEMISTRY ORDERABL ES [facility] [address] * (ABNORMAL) Basic Metabolic Panel (non-fasting) (09/20/2017 5:51 AM EDT) Glucose 93 65 - 199 mg/dL [facility] Comment:Diabetes: >=200 mg/d L plus symptoms Blood Urea Nitrogen 22(H) 10 - 20 mg/dL [facility] Creatinine 0.90 0.80 - 1.50 mg/dL [facility] Sodium 144 135 - 145 mmol/L [facility] Potassium 3.6 3.5 - 5.0 mmol/L [facility] Comment: Please note: ??Patients with WBC >100,000 may have falsely elevated Potassium levels. ??For accurate Potassium quantification in these patients send serum separator tube (gold top) for subsequent determinations. ??Contact the Clinical Chemistry Laboratory if there are any questions. Chloride 104 98 - 107 mmol/L [facility] Carbon Dioxide 26 22 - 31 mmol/L [facility] Anion Gap 14 5 - 15 mmol/L [facility] Calcium 8.9 8.5 - 10.5 mg/dL [facility] Est Glomerular Filtration Rate >60 >=60 [facility] Comment: The reported eGFR should be multiplied by 1.2 for patients. The MDRD is not an appropriate measure of renal function for patients with body mass extremes or in patients with acute kidney failure. [email or web address] Blood specimen (specimen) 09/20/2017 5:51 AM EDT 09/20/2017 6:57 AM EDT Narrative Resulting Agency Comment Spec In Lab Reba Linton MD CHEMISTRY ORDERA [facility] [place] [address] * XR Pelvis Judet or In Out [...] (09/19/2017 3:21 AM EDT) Plat estimate Increased [facility] RBC Morphology Abnormal [facility] Hypochromia Slight [facility] Ovalocytes 1-5 /HPF [facility] Tear Cell 1-5 /HPF [facility] Blood specimen (specimen) 09/19/2017 3:21 AM EDT 09/19/2017 4:23 AM EDT Narrative Resulting Agency Comment Spec In Lab Juliet Medeiros APRN HEMATOLOGY ORDERABLE S [facility] [place] [address] * (ABNORMAL) Differential, Automated (09/19/2017 3:21 AM EDT) Neutrophil % 50.0 % [facility] Neutrophil Absolute 3.69 1.70 - 6.10 x10(3)/[facility] Lymph % 28.8 % [facility] Lymphocytes Abs 2.1 0.9 - 3.2 x10(3)/[facility] Monocyte % 11.0 % [facility] Monocyte Abs 0.8 0.3 - 0.9 x10(3)/[facility] Eos % 7.5 % [facility] Eosinophils Abs 0.6(H) 0.0 - 0.4 x10(3)/[facility] Basophil % 0.9 % [facility] Baso Absolute 0.1 0.0 - 0.1 x10(3)/[facility] Immature Gran % 1.80 % [facility] Comment: Immature granulocytes(IG's)percentage and absolute count will include metamyelocytes, myelocytes, and promyelocytes. Blood smears from CBCs yielding IG's will be scanned manually for concordance. If this scan disagrees with the automated IG or if promyelocytes are noted, a manual differential will be performed. Immature Gran Absolute 0.13(H) 0.00 - 0.04 x10(3)/[facility] Blood specimen (specimen) 09/19/2017 3:21 AM EDT 09/19/2017 4:23 AM EDT Narrative Resulting Agency Comment Spec In Lab Juliet Medeiros APRN HEMATOLOGY ORDERABLE S [facility] [place] [address] * (ABNORMAL) Hemogram (09/19/2017 3:21 AM EDT) Pathologist [facility] White Blood Cell 7.4 4.0 - 9.5 x10(3)/mc L [facility] Red Blood Cell 3.52(L) 4.58 - 5.54 x10(6)/ L [facility] Hemoglobin 9.1(L) 13.7 - 16.5 gm/dL [facility] Hematocrit 31.4(L) 40.5 - 48.5 % [facility] Mean Cell Volume 89.2 82.9 - 93.1 fL [facility] Mean Cell Hemoglobin 25.9(L) 27.5 - 32.1 pg [facility] Mean Cell Hemoglobin Concentration 29.0(L) 32.0 - 35.7 gm/dL [facility] Platelet 648(H) 145 - 357 x10(3)/[facility] RDW Standard Deviation 53.9(H) 36.0 - 45.0 [facility] RDW coefficient of variation 17.3(H) 11.4 - 13.8 % [facility] Mean Platelet Volume 8.9 7.6 - 12.9 [facility] NRBC% auto 0.5 % [facility] NRBC Absolute 0.040(H) 0.000 - 0.000 x10(3)/[facility] Blood specimen (specimen) 09/19/2017 3:21 AM EDT 09/19/2017 4:23 AM EDT Narrative Resulting Agency Comment Spec In Lab Juliet Medeiros APRN HEMATOLOGY ORDERABLE S [facility] [place] [address] * (ABNORMAL) Basic Metabolic Panel (non-fasting) (09/19/2017 3:21 AM EDT) Glucose 91 65 - 199 mg/dL [facility] Comment:Diabetes: >=200 mg/d L plus symptoms Blood Urea Nitrogen 16 10 - 20 mg/dL [facility] Creatinine 1.02 0.80 - 1.50 mg/dL [facility] Sodium 149(H) 135 - 145 mmol/L [facility] Potassium 4.0 3.5 - 5.0 mmol/L [facility] Comment: Please note: ??Patients with WBC >100,000 may have falsely elevated Potassium levels. ??For accurate Potassium quantification in these patients send serum separator tube (gold top) for subsequent determinations. ??Contact the Clinical Chemistry Laboratory if there are any questions. Chloride 108(H) 98 - 107 mmol/L [facility] Carbon Dioxide 26 22 - 31 mmol/L [facility] Anion Gap 15 5 - 15 mmol/L [facility] Calcium 9.1 8.5 - 10.5 mg/dL [facility] Est Glomerular Filtration Rate >60 >=60 [facility] Comment: The reported eGFR should be multiplied by 1.2 for patients. The MDRD is not an appropriate measure of renal function for patients with body mass extremes or in patients with acute kidney failure. http://LinkoTec.Swyft/DHnkdep http://ilab/DHMCnkf Blood specimen (specimen) 09/19/2017 3:21 AM EDT 09/19/2017 4:23 AM EDT Narrative Resulting Agency Comment Spec In Lab Juliet Medeiros APRN CHEMISTRY ORDERABLES Performing Organization Address City/[facility]/ZIP Co de Phone Number [facility] [place] [address] * Sodium (09/18/2017 5:46 AM EDT) Sodium 144 135 - 145 mmol/L [facility] Comment:Rechecked-KS Blood specimen (specimen) 09/18/2017 5:46 AM EDT 09/18/2017 5:59 AM EDT Narrative Resulting Agency Comment Spec In Lab Reba Linton MD CHEMISTRY ORDERA BLES [facility] [address] * (ABNORMAL) Hemogram (09/18/2017 5:46 AM EDT) White Blood Cell 6.6 4.0 - 9.5 x10(3)/mc L [facility] Red Blood Cell 3.05(L) 4.58 - 5.54 x10(6)/mc L [facility] Hemoglobin 8.2(L) 13.7 - 16.5 gm/dL [facility] Hematocrit 26.2(L) 40.5 - 48.5 % [facility] Mean Cell Volume 85.9 82.9 - 93.1 fL [facility] Mean Cell Hemoglobin 26.9(L) 27.5 - 32.1 pg [facility] Mean Cell Hemoglobin Concentration 31.3(L) 32.0 - 35.7 gm/dL [facility] Platelet 580(H) 145 - 357 x10(3)/mc L [facility] RDW Standard Deviation 50.4(H) 36.0 - 45.0 fL [facility] RDW coefficient of variation 16.7(H) 11.4 - 13.8 % [facility] Mean Platelet Volume 8.8 7.6 - 12.9 fL [facility] NRBC% auto 0.5 % [facility] NRBC Absolute 0.030(H) 0.000 - 0.000 x10(3)/mc L [facility] Blood specimen (specimen) 09/18/2017 5:46 AM EDT 09/18/2017 5:59 AM EDT Narrative Resulting Agency Comment Spec In Lab Reba Linton MD HEMATOLOGY ORDER LYNDSEY [facility] [address] * Sodium (09/17/2017 12:49 PM EDT) Sodium 136 135 - 145 mmol/L [facility] Blood specimen (specimen) 09/17/2017 12:49 PM EDT 09/17/2017 12:54 PM EDT Narrative Resulting Agency Comment Spec In Lab Reba Linton MD CHEMISTRY ORDERA BLES [facility] [place] [address] * (ABNORMAL) Hemogram (09/17/2017 6:28 AM EDT) White Blood Cell 6.8 4.0 - 9.5 x10(3)/mc L [facility] Red Blood Cell 3.07(L) 4.58 - 5.54 x10(6)/ L [facility] Hemoglobin 8.1(L) 13.7 - 16.5 gm/dL [facility] Hematocrit 26.0(L) 40.5 - 48.5 % [facility] Mean Cell Volume 84.7 82.9 - 93.1 fL [facility] Mean Cell Hemoglobin 26.4(L) 27.5 - 32.1 pg [facility] Mean Cell Hemoglobin Concentration 31.2(L) 32.0 - 35.7 gm/dL [facility] Platelet 497(H) 145 - 357 x10(3)/mc L [facility] RDW Standard Deviation 46.9(H) 36.0 - 45.0 [facility] RDW coefficient of variation 15.7(H) 11.4 - 13.8 % [facility] Mean Platelet Volume 8.8 7.6 - 12.9 fL [facility] NRBC% auto 0.3 % [facility] NRBC Absolute 0.020(H) 0.000 - 0.000 x10(3)/mc L [facility] Blood specimen (specimen) 09/17/2017 6:28 AM EDT 09/17/2017 6:43 AM EDT Narrative Resulting Agency Comment Spec In Lab Reba Linton MD HEMATOLOGY ORDER LYNDSEY [facility] [place] [address] * ABORH Recheck Status (09/16/2017 9:27 AM EDT) ABORH Type Recheck Completed [facility] Blood specimen (specimen) 09/16/2017 9:27 AM EDT 09/16/2017 9:32 AM EDT Narrative Resulting Agency Comment Spec In Lab Delgado Jeffrey MD BLOOD BANK LAB ORDE RIDDHI Performing Organization Address [facility] Co de Phone Number [facility] [place] [address] * Antibody screen (09/16/2017 9:27 AM EDT) Ab Screen Interp Negative [facility] Expires at [id number] on: 09/19/2017 [facility] Blood specimen (specimen) 09/16/2017 9:27 AM EDT 09/16/2017 9:32 AM EDT Narrative Resulting Agency Comment Spec In Lab Delgado Jeffrey MD BLOOD BANK LAB ORDE RIDDHI Performing Organization Address City/[facility]/ZIP Co de Phone Number [facility] [place] [address] * ABO/Rh Typing (09/16/2017 9:27 AM EDT) ABORH Type O Pos [facility] Blood specimen (specimen) 09/16/2017 9:27 AM EDT 09/16/2017 9:32 AM EDT Narrative Resulting Agency Comment Spec In Lab Delgado Jeffrey MD BLOOD BANK LAB ORDE RIDDHI Performing Organization Address City/[facility]/ZIP Co de Phone Number [facility] [place] [address] * Prepare RBC (09/16/2017 8:35 AM EDT) Pathologist [facility] Dispensed? Yes [facility] Blood specimen (specimen) 09/16/2017 8:35 AM EDT 09/16/2017 8:34 AM EDT Narrative Resulting Agency Comment Spec In Lab Reba Linton MD BLOOD BANK PRODU CT ORDERABLES Performing Organization Address City/[facility]/ZIP Co de Phone Number [facility] [place] [address] * Sodium (09/16/2017 5:07 AM EDT) [facility] Sodium 141 135 - 145 mmol/L [facility] Blood specimen (specimen) 09/16/2017 5:07 AM EDT 09/16/2017 5:14 AM EDT Narrative Resulting Agency Comment Spec In Lab Reba Linton MD CHEMISTRY ORDERA BLES Performing Organization Address City/[facility]/ZIP Co de Phone Number [facility] [place] [address] * (ABNORMAL) Differential, Automated (09/16/2017 5:07 AM EDT) [facility] Neutrophil % 54.3 % [facility] Neutrophil Absolute 4.04 1.70 - 6.10 x10(3)/mc L [facility] Lymph % 24.3 % [facility] Lymphocytes Abs 1.8 0.9 - 3.2 x10(3)/mc L [facility] Monocyte % 10.0 % [facility] Monocyte Abs 0.7 0.3 - 0.9 x10(3)/mc L [facility] Eos % 8.8 % [facility] Eosinophils Abs 0.6(H) 0.0 - 0.4 x10(3)/[facility] Basophil % 0.4 % [facility] Baso Absolute 0.0 0.0 - 0.1 x10(3)/[facility] Immature Gran % 2.20 % [facility] Comment: Immature granulocytes(IG's)percentage and absolute count will include metamyelocytes, myelocytes, and promyelocytes. Blood smears from CBCs yielding IG's will be scanned manually for concordance. If this scan disagrees with the automated IG or if promyelocytes are noted, a manual differential will be performed. Immature Gran Absolute 0.16(H) 0.00 - 0.04 x10(3)/[facility] Blood specimen (specimen) 09/16/2017 5:07 AM EDT 09/16/2017 5:14 AM EDT Narrative Resulting Agency Comment Spec In Lab Delgado Jeffrey MD HEMATOLOGY ORDERABL ES [facility] [place] [id number] * (ABNORMAL) Hemogram (09/16/2017 5:07 AM EDT) White Blood Cell 7.4 4.0 - 9.5 x10(3)/[facility] Red Blood Cell 2.58(L) 4.58 - 5.54 x10(6)/[facility] Hemoglobin 6.8(L) 13.7 - 16.5 gm/dL [facility] Hematocrit 21.8(L) 40.5 - 48.5 % [facility] Mean Cell Volume 84.5 82.9 - 93.1 fL [facility] Mean Cell Hemoglobin 26.4(L) 27.5 - 32.1 pg [facility] Mean Cell Hemoglobin Concentration 31.2(L) 32.0 - 35.7 gm/dL [facility] Platelet 366(H) 145 - 357 x10(3)/mc L [facility] RDW Standard Deviation 47.4(H) 36.0 - 45.0 fL [facility] RDW coefficient of variation 15.7(H) 11.4 - 13.8 % [facility] Mean Platelet Volume 8.7 7.6 - 12.9 fL [facility] NRBC% auto 0.3 % [facility] NRBC Absolute 0.020(H) 0.000 - 0.000 x10(3)/mc L [facility] Blood specimen (specimen) 09/16/2017 5:07 AM EDT 09/16/2017 5:14 AM EDT Narrative Resulting Agency Comment Spec In Lab Delgado Jeffrey MD HEMATOLOGY ORDERABL ES Performing Organization Address [facility] Co de Phone Number [facility] [place] [address] * SCAN DOC: LAB (09/16/2017 12:00 AM EDT) Narrative 09/16/2017 12:00 AM EDT Ordered by an unspecified provider. Scanning Provider MEDIA MGR SCAN EXT O RDR/RSLT * Sodium (09/15/2017 1:48 PM EDT) Sodium 137 135 - 145 mmol/L [facility] Blood specimen (specimen) 09/15/2017 1:48 PM EDT 09/15/2017 1:57 PM EDT Narrative Resulting Agency Comment Spec In Lab Reba Linton MD CHEMISTRY ORDERA BLES Performing Organization Address [facility]/ZIP Co de Phone Number [facility] [place] [address] * (ABNORMAL) Differential, Automated (09/15/2017 1:48 PM EDT) Neutrophil % 65.7 % [facility] Neutrophil Absolute 5.35 1.70 - 6.10 x10(3)/mc L [facility] Lymph % 14.9 % [facility] Lymphocytes Abs 1.2 0.9 - 3.2 x10(3)/[facility] Monocyte % 7.0 % [facility] Monocyte Abs 0.6 0.3 - 0.9 x10(3)/[facility] Eos % 8.0 % [facility] Eosinophils Abs 0.6(H) 0.0 - 0.4 x10(3)/[facility] Basophil % 0.5 % [facility] Baso Absolute 0.0 0.0 - 0.1 x10(3)/[facility] Immature Gran % 3.90 % [facility] Comment: Immature granulocytes(IG's)percentage and absolute count will include metamyelocytes, myelocytes, and promyelocytes. Blood smears from CBCs yielding IG's will be scanned manually for concordance. If this scan disagrees with the automated IG or if promyelocytes are noted, a manual differential will be performed. Immature Gran Absolute 0.32(H) 0.00 - 0.04 x10(3)/[facility] Blood specimen (specimen) 09/15/2017 1:48 PM EDT 09/15/2017 1:57 PM EDT Narrative Resulting Agency Comment Spec In Lab Delgado Jeffrey MD HEMATOLOGY ORDERABL ES [facility] [place] [address] * (ABNORMAL) Hemogram (09/15/2017 1:48 PM EDT) White Blood Cell 8.1 4.0 - 9.5 x10(3)/[facility] Red Blood Cell 2.82(L) 4.58 - 5.54 x10(6)/[facility] Hemoglobin 7.4(L) 13.7 - 16.5 gm/dL [facility] Hematocrit 24.2(L) 40.5 - 48.5 % [facility] Mean Cell Volume 85.8 82.9 - 93.1 fL [facility] Mean Cell Hemoglobin 26.2(L) 27.5 - 32.1 pg [facility] Mean Cell Hemoglobin Concentration 30.6(L) 32.0 - 35.7 gm/dL [facility] Platelet 399(H) 145 - 357 x10(3)/mc L [facility] RDW Standard Deviation 48.6(H) 36.0 - 45.0 fL [facility] RDW coefficient of variation 15.9(H) 11.4 - 13.8 % [facility] Mean Platelet Volume 8.6 7.6 - 12.9 fL [facility] NRBC% auto 0.2 % [facility] NRBC Absolute 0.020(H) 0.000 - 0.000 x10(3)/mc L [facility] Blood specimen (specimen) 09/15/2017 1:48 PM EDT 09/15/2017 1:57 PM EDT Narrative Resulting Agency Comment Spec In Lab Delgado Jeffrey MD HEMATOLOGY ORDERABL ES Performing Organization Address [facility]/ZIP Co de Phone Number [facility] [address] * Sodium (09/15/2017 6:07 AM EDT) Sodium 141 135 - 145 mmol/L [facility] Blood specimen (specimen) 09/15/2017 6:07 AM EDT 09/15/2017 6:20 AM EDT Narrative Resulting Agency Comment Spec In Lab Reba Linton MD CHEMISTRY ORDERA BLES Performing Organization Address City/[facility]/ZIP Co de Phone Number [facility] [address] * Urinalysis with reflex Culture (09/14/2017 10:32 PM EDT) Glucose, Urine Dipstick Negative Negative mg/dL [facility] Protein, Urine Dipstick Negative Negative mg/dL [facility] Bilirubin, Urine Dipstick Negative Negative mg/dL [facility] Comment: Clinical correlation required for positive Urine Bilirubin results as false positive may occur with some drugs and drug related products. If a false positive is suspected a serum total bilirubin should be considered if clinically indicated. Urobilinogen, Urine Dipstick Normal Normal mg/dL [facility] pH, Urn (dipstick) 5.0 5.0 - 8.0 [facility] Blood, Urine Dipstick Negative Negative mg/dL [facility] Ketone, Urine Dipstick Negative Negative mg/dL [facility] Nitrite, Urine Dipstick Negative Negative [facility] Leukocytes, Urine Dipstick Negative Negative mcL [facility] Appearance, Urine Dipstick Clear Clear [facility] Specific [place] Urine Automated 1.019 1.002 - 1.030 [facility] Color, Urine Dipstick Yellow Yellow [facility] Reflex to Culture No [facility] Urine specimen obtained via straight catheter (specimen) 09/14/2017 10:32 PM EDT 09/14/2017 11:25 PM EDT Narrative Resulting Agency Comment Spec In Lab Shannan Davalos APRN URINE ORDERABLES [facility] [place] [address] * Sodium (09/14/2017 10:16 PM EDT) Sodium 142 135 - 145 mmol/L [facility] Blood specimen (specimen) 09/14/2017 10:16 PM EDT 09/14/2017 10:22 PM EDT Narrative Resulting Agency Comment Spec In Lab Reba Linton MD CHEMISTRY ORDERA BLES Performing Organization Address City/[facility]/ZIP Co de Phone Number [facility] [place] [address] * XR Chest PA or AP 1 [...] Blood Culture No growth at 5 days. [facility] Blood specimen (specimen) 09/14/2017 8:51 PM EDT 09/14/2017 9:30 PM EDT Comment:R AC.BR Narrative Resulting Agency Comment Spec In Lab Shannan Davalos APRN MICROBIOLOGY - BLOOD ORDERABLES Performing Organization Address City/[facility]/ZIP Co de Phone Number [facility] [place] [address] * Blood culture (09/14/2017 8:51 PM EDT) Blood Culture No growth at 5 days. [facility] Blood specimen (specimen) 09/14/2017 8:51 PM EDT 09/14/2017 9:30 PM EDT Comment:L AC Narrative Resulting Agency Comment Spec In Lab Shannan Davalos APRN MICROBIOLOGY - BLOOD ORDERABLES Performing Organization Address City/[facility]/ZIP Co de Phone Number [facility] [place] [address] * T4, free (09/14/2017 2:09 PM EDT) Free T4 1.01 0.93 - 1.70 ng/dL [facility] Blood specimen (specimen) Venous Draw / Unknown 09/14/2017 2:09 PM EDT 09/14/2017 4:05 PM EDT Narrative Resulting Agency Comment Spec In Lab Yadi Mccauley MD CHEMISTRY ORDERAB LES Performing Organization Address [facility]/ZIP Co de Phone Number [facility] [place] [address] * Sodium (09/14/2017 2:09 PM EDT) Sodium 145 135 - 145 mmol/L [facility] Blood specimen (specimen) 09/14/2017 2:09 PM EDT 09/14/2017 2:14 PM EDT Narrative Resulting Agency Comment Spec In Lab Reba Linton MD CHEMISTRY ORDERA BLES Performing Organization Address [facility]/ZIP Co de Phone Number [facility] [place] [address] * Magnesium (09/14/2017 2:09 PM EDT) Magnesium 0.85 0.69 - 1.07 mmol/L [facility] Blood specimen (specimen) 09/14/2017 2:09 PM EDT 09/14/2017 2:14 PM EDT Narrative Resulting Agency Comment Spec In Lab Reba Linton MD CHEMISTRY ORDERSunni BAKER [facility] [place] [address] * Basic Metabolic Panel (non-fasting) (09/14/2017 2:09 PM EDT) Glucose 73 65 - 199 mg/dL [facility] Comment:Diabetes: >=200 mg/d L plus symptoms Blood Urea Nitrogen 16 10 - 20 mg/dL [facility] Creatinine 0.92 0.80 - 1.50 mg/dL [facility] Sodium 145 135 - 145 mmol/L [facility] Potassium 3.6 3.5 - 5.0 mmol/L [facility] Comment: Please note: ??Patients with WBC >100,000 may have falsely elevated Potassium levels. ??For accurate Potassium quantification in these patients send serum separator tube (gold top) for subsequent determinations. ??Contact the Clinical Chemistry Laboratory if there are any questions. Chloride 104 98 - 107 mmol/L [facility] Carbon Dioxide 27 22 - 31 mmol/L [facility] Anion Gap 14 5 - 15 mmol/L [facility] Calcium 8.6 8.5 - 10.5 mg/dL [facility] Est Glomerular Filtration Rate >60 >=60 [facility] Comment: The reported eGFR should be multiplied by 1.2 for patients. The MDRD is not an appropriate measure of renal function for patients with body mass extremes or in patients with acute kidney failure. http://LinkoTec.com/DHnkdep http://LinkoTec.com/DHMCnkf Blood specimen (specimen) 09/14/2017 2:09 PM EDT 09/14/2017 2:14 PM EDT Narrative Resulting Agency Comment Spec In Lab Reba Linton MD CHEMISTRY ORDERA BLES [facility] [address] * Sodium (09/14/2017 9:37 AM EDT) Sodium 142 135 - 145 mmol/L [facility] Blood specimen (specimen) 09/14/2017 9:37 AM EDT 09/14/2017 9:40 AM EDT Narrative Resulting Agency Comment Spec In Lab Reba Linton MD CHEMISTRY ORDERA BLES Performing Organization Address City/[facility]/ZIP Co de Phone Number [facility] [place] [address] * Sodium (09/14/2017 5:07 AM EDT) Sodium 144 135 - 145 mmol/L [facility] Blood specimen (specimen) 09/14/2017 5:07 AM EDT 09/14/2017 5:30 AM EDT Narrative Resulting Agency Comment Spec In Lab Reba Linton MD CHEMISTRY ORDERA BLES Performing Organization Address City/[facility]/ZIP Co de Phone Number [facility] [place] [address] * Sodium (09/13/2017 9:42 PM EST) Sodium 138 135 - 145 mmol/L [facility] Blood specimen (specimen) 09/13/2017 9:42 PM EST 09/13/2017 9:50 PM EST Narrative Resulting Agency Comment Spec In Lab Reba Linton MD CHEMISTRY ORDERA BLES Performing Organization Address City/[facility]/ZIP Co de Phone Number [facility] [place] [address] * Sodium (09/13/2017 2:39 PM EST) Sodium 140 135 - 145 mmol/L [facility] Blood specimen (specimen) 09/13/2017 2:39 PM EST 09/13/2017 2:44 PM EST Narrative Resulting Agency Comment Spec In Lab Reba Linton MD CHEMISTRY ORDERA BLES Performing Organization Address [facility] [place] [address] * Osmolality (09/13/2017 9:09 AM EST) Osmolality 291 275 - 295 mOsm/kg [facility] Blood specimen (specimen) 09/13/2017 9:09 AM EST 09/13/2017 9:13 AM EST Narrative Resulting Agency Comment Spec In Lab Ren Sanchez III, MD CHEMISTRY ORDERABLES Performing Organization Address [facility] [place] [address] * Sodium (09/13/2017 9:09 AM EST) Sodium 143 135 - 145 mmol/L [facility] Blood specimen (specimen) 09/13/2017 9:09 AM EST 09/13/2017 9:13 AM EST Narrative Resulting Agency Comment Spec In Lab Ren Sanchez III, MD CHEMISTRY ORDERABLES Performing Organization Address [facility] Phone Number [facility] [place] [address] * Osmolality, urine, random (09/13/2017 4:35 AM EST) Osmolality, Urine 749 50 - 1,200 mOsm/kg [facility] Urine specimen (specimen) 09/13/2017 4:35 AM EST 09/13/2017 5:03 AM EST Narrative Resulting Agency Comment Spec In Lab Ren Sanchez III, MD URINE ORDERABLES Performing Organization Address [facility] de Phone Number [facility] [place] [address] * Sodium (09/13/2017 3:57 AM EST) Sodium 142 135 - 145 mmol/L [facility] Blood specimen (specimen) 09/13/2017 3:57 AM EST 09/13/2017 4:05 AM EST Narrative Resulting Agency Comment Spec In Lab Ren Sanchez III, MD CHEMISTRY ORDERABLES Performing Organization Address City/[facility]/ZIP Co de Phone Number [facility] [place] [address] * Osmolality (09/13/2017 3:57 AM EST) Osmolality 292 275 - 295 mOsm/kg [facility] Blood specimen (specimen) 09/13/2017 3:57 AM EST 09/13/2017 4:05 AM EST Narrative Resulting Agency Comment Spec In Lab Ren Sanchez III, MD CHEMISTRY ORDERABLES Performing Organization Address City/[facility]/ZIP Co de Phone Number [facility] [place] [address] * Osmolality, urine, random (09/13/2017 12:38 AM EST) Osmolality, Urine 620 50 - 1,200 mOsm/kg [facility] Urine specimen (specimen) 09/13/2017 12:38 AM EST 09/13/2017 12:56 AM EST Narrative Resulting Agency Comment Spec In Lab Ren Sanchez III, MD URINE ORDERABLES Performing Organization Address City/[facility]/ZIP Co de Phone Number [facility] [place] [address] * Osmolality (09/12/2017 11:43 PM EST) Osmolality 294 275 - 295 mOsm/kg [facility] Blood specimen (specimen) 09/12/2017 11:43 PM EST 09/12/2017 11:49 PM EST Narrative Resulting Agency Comment Spec In Lab Ren Sanchez III, MD CHEMISTRY ORDERABLES Performing Organization Address City/[facility] Co de Phone Number [facility] [place] [address] * Sodium (09/12/2017 11:43 PM EST) Sodium 143 135 - 145 mmol/L [facility] Blood specimen (specimen) 09/12/2017 11:43 PM EST 09/12/2017 11:49 PM EST Narrative Resulting Agency Comment Spec In Lab Ren Sanchez III, MD CHEMISTRY ORDERABLES Performing Organization Address [facility] de Phone Number [facility] [place] [address] * Osmolality, urine, random (09/12/2017 8:16 PM EST) Osmolality, Urine 773 50 - 1,200 mOsm/kg [facility] Urine specimen (specimen) 09/12/2017 8:16 PM EST 09/12/2017 8:36 PM EST Narrative Resulting Agency Comment Spec In Lab Ren Sanchez III, MD URINE ORDERABLES Performing Organization Address [facility] Co de Phone Number [facility] [place] [address] * (ABNORMAL) Osmolality (09/12/2017 7:39 PM EST) Osmolality 296(H) 275 - 295 mOsm/kg [facility] Blood specimen (specimen) 09/12/2017 7:39 PM EST 09/12/2017 7:54 PM EST Narrative Resulting Agency Comment Spec In Lab Ren Sanchez III, MD CHEMISTRY ORDERABLES Performing Organization Address City/[facility] Co de Phone Number [facility] [place] [address] * Sodium (09/12/2017 7:39 PM EST) Sodium 142 135 - 145 mmol/L [facility] Blood specimen (specimen) 09/12/2017 7:39 PM EST 09/12/2017 7:54 PM EST Narrative Resulting Agency Comment Spec In Lab Ren Sanchez III, MD CHEMISTRY ORDERABLES Performing Organization Address [facility] Co de Phone Number [facility] [place] [address] * Osmolality, urine, random (09/12/2017 3:54 PM EST) Osmolality, Urine 779 50 - 1,200 mOsm/kg [facility] Urine specimen (specimen) 09/12/2017 3:54 PM EST 09/12/2017 4:14 PM EST Narrative Resulting Agency Comment Spec In Lab Ren Sanchez III, MD URINE ORDERABLES Performing Organization Address [facility] Co de Phone Number [facility] [place] [address] * (ABNORMAL) Osmolality (09/12/2017 3:52 PM EST) Osmolality 303(H) 275 - 295 mOsm/kg [facility] Blood specimen (specimen) 09/12/2017 3:52 PM EST 09/12/2017 3:57 PM EST Narrative Resulting Agency Comment Spec In Lab Ren Sanchez III, MD CHEMISTRY ORDERABLES Performing Organization Address [facility] Co de Phone Number [facility] [place] [address] * Sodium (09/12/2017 3:52 PM EST) Sodium 145 135 - 145 mmol/L [facility] Blood specimen (specimen) 09/12/2017 3:52 PM EST 09/12/2017 3:57 PM EST Narrative Resulting Agency Comment Spec In Lab Ren Sanchez III, MD CHEMISTRY ORDERABLES Performing Organization Address City/[facility]/ZIP Co de Phone Number [facility] [place] [address] * Osmolality, urine, random (09/12/2017 1:19 PM EST) Osmolality, Urine 157 50 - 1,200 mOsm/kg [facility] Urine specimen (specimen) 09/12/2017 1:19 PM EST 09/12/2017 2:00 PM EST Narrative Resulting Agency Comment Spec In Lab Ren Sanchez III, MD URINE ORDERABLES Performing Organization Address [facility] Co de Phone Number [facility] [place] [address] * (ABNORMAL) Osmolality (09/12/2017 12:14 PM EST) Osmolality 302(H) 275 - 295 mOsm/kg [facility] Blood specimen (specimen) 09/12/2017 12:14 PM EST 09/12/2017 12:30 PM EST Narrative Resulting Agency Comment Spec In Lab Ren Sanchez III, MD CHEMISTRY ORDERABLES Performing Organization Address [facility] Co de Phone Number [facility] [place] [address] * (ABNORMAL) Sodium (09/12/2017 12:14 PM EST) Sodium 148(H) 135 - 145 mmol/L [facility] Blood specimen (specimen) 09/12/2017 12:14 PM EST 09/12/2017 12:30 PM EST Narrative Resulting Agency Comment Spec In Lab Ren Sanchez III, MD CHEMISTRY ORDERABLES Performing Organization Address City/[facility] Co de Phone Number [facility] [place] [address] * Sodium (09/12/2017 7:48 AM EST) Sodium 141 135 - 145 mmol/L [facility] Blood specimen (specimen) 09/12/2017 7:48 AM EST 09/12/2017 8:06 AM EST Narrative Resulting Agency Comment Spec In Lab Ren Sanchez III, MD CHEMISTRY ORDERABLES Performing Organization Address [facility] Co de Phone Number [facility] [place] [address] * Sodium (09/12/2017 4:01 AM EST) Sodium 136 135 - 145 mmol/L [facility] Blood specimen (specimen) 09/12/2017 4:01 AM EST 09/12/2017 4:06 AM EST Narrative Resulting Agency Comment Spec In Lab Ren Sanchez III, MD CHEMISTRY ORDERABLES Performing Organization Address [facility] Co de Phone Number [facility] [place] [address] * (ABNORMAL) Sodium (09/12/2017 12:02 AM EST) Sodium 133(L) 135 - 145 mmol/L [facility] Blood specimen (specimen) 09/12/2017 12:02 AM EST 09/12/2017 12:06 AM EST Narrative Resulting Agency Comment Spec In Lab Ren Sanchez III, MD CHEMISTRY ORDERABLES Performing Organization Address City/[facility] Co de Phone Number [facility] [place] [address] * Sodium (09/11/2017 7:53 PM EST) Sodium 135 135 - 145 mmol/L [facility] Blood specimen (specimen) 09/11/2017 7:53 PM EST 09/11/2017 7:57 PM EST Narrative Resulting Agency Comment Spec In Lab Ren Sanchez III, MD CHEMISTRY ORDERABLES Performing Organization Address City/[facility] Co de Phone Number [facility] [place] [address] * Sodium (09/11/2017 5:56 PM EST) Sodium 135 135 - 145 mmol/L [facility] Blood specimen (specimen) 09/11/2017 5:56 PM EST 09/11/2017 6:06 PM EST Narrative Resulting Agency Comment Spec In Lab Ren Sanchez III, MD CHEMISTRY ORDERABLES Performing Organization Address City/[facility] Co de Phone Number [facility] [place] [address] * Sodium (09/11/2017 3:15 PM EST) Sodium 135 135 - 145 mmol/L [facility] Blood specimen (specimen) 09/11/2017 3:15 PM EST 09/11/2017 3:22 PM EST Narrative Resulting Agency Comment Spec In Lab Ren Sanchez III, MD CHEMISTRY ORDERABLES Performing Organization Address [facility] Co de Phone Number [facility] [place] [address] * (ABNORMAL) Sodium (09/11/2017 12:51 PM EST) Sodium 134(L) 135 - 145 mmol/L [facility] Blood specimen (specimen) 09/11/2017 12:51 PM EST 09/11/2017 1:03 PM EST Narrative Resulting Agency Comment Spec In Lab Ren Sanchez III, MD CHEMISTRY ORDERABLES Performing Organization Address City/[facility] Co de Phone Number [facility] [place] [address] * (ABNORMAL) Sodium (09/11/2017 10:48 AM EST) Sodium 132(L) 135 - 145 mmol/L [facility] Blood specimen (specimen) 09/11/2017 10:48 AM EST 09/11/2017 10:55 AM EST Narrative Resulting Agency Comment Spec In Lab Ren Sanchez III, MD CHEMISTRY ORDERABLES Performing Organization Address [facility] Co de Phone Number [facility] [place] [address] * (ABNORMAL) Osmolality (09/11/2017 8:33 AM EST) Osmolality 271(L) 275 - 295 mOsm/kg [facility] Blood specimen (specimen) 09/11/2017 8:33 AM EST 09/11/2017 8:39 AM EST Narrative Resulting Agency Comment Spec In Lab Ren Sanchez III, MD CHEMISTRY ORDERABLES Performing Organization Address [facility] Phone Number [facility] [place] [address] * (ABNORMAL) Sodium (09/11/2017 8:33 AM EST) Sodium 131(L) 135 - 145 mmol/L [facility] Blood specimen (specimen) 09/11/2017 8:33 AM EST 09/11/2017 8:39 AM EST Narrative Resulting Agency Comment Spec In Lab Ren Sanchez III, MD CHEMISTRY ORDERABLES Performing Organization Address [facility] de Phone Number [facility] [place] [address] * Osmolality, urine, random (09/11/2017 7:56 AM EST) Osmolality, Urine 571 50 - 1,200 mOsm/kg [facility] Urine specimen (specimen) 09/11/2017 7:56 AM EST 09/11/2017 8:16 AM EST Narrative Resulting Agency Comment Spec In Lab Ren Sanchez III, MD URINE ORDERABLES Performing Organization Address [facility] Co de Phone Number [facility] [place] [address] * (ABNORMAL) Basic Metabolic Panel (non-fasting) (09/11/2017 3:47 AM EST) Glucose 89 65 - 199 mg/dL [facility] Comment:Diabetes: >=200 mg/d L plus symptoms Blood Urea Nitrogen 14 10 - 20 mg/dL [facility] Creatinine 0.63(L) 0.80 - 1.50 mg/dL [facility] Sodium 128(L) 135 - 145 mmol/L [facility] Potassium 3.5 3.5 - 5.0 mmol/L [facility] Comment: Please note: ??Patients with WBC >100,000 may have falsely elevated Potassium levels. ??For accurate Potassium quantification in these patients send serum separator tube (gold top) for subsequent determinations. ??Contact the Clinical Chemistry Laboratory if there are any questions. Chloride 91(L) 98 - 107 mmol/L [facility] Carbon Dioxide 24 22 - 31 mmol/L [facility] Anion Gap 13 5 - 15 mmol/L [facility] Calcium 8.1(L) 8.5 - 10.5 mg/dL [facility] Est Glomerular Filtration Rate >60 >=60 [facility] Comment: The reported eGFR should be multiplied by 1.2 for patients. The MDRD is not an appropriate measure of renal function for patients with body mass extremes or in patients with acute kidney failure. http://LinkoTec.Swyft/DHnkdep http://ilab/DHMCnkf Blood specimen (specimen) 09/11/2017 3:47 AM EST 09/11/2017 4:03 AM EST Narrative Resulting Agency Comment Spec In Lab Ren Sanchez III, MD CHEMISTRY ORDERABLES [facility] [place] [address] * (ABNORMAL) Sodium (09/10/2017 6:57 PM EST) Sodium 130(L) 135 - 145 mmol/L [facility] Blood specimen (specimen) 09/10/2017 6:57 PM EST 09/10/2017 7:02 PM EST Narrative Resulting Agency Comment Spec In Lab Ren Sanchez III, MD CHEMISTRY ORDERABLES [facility] [place] [address] * (ABNORMAL) Differential, Automated (09/10/2017 3:50 AM EST) Neutrophil % 51.9 % [facility] Neutrophil Absolute 4.55 1.70 - 6.10 x10(3)/[facility] LABORATORY Lymph % 21.8 % [facility] Lymphocytes Abs 1.9 0.9 - 3.2 x10(3)/[facility]ORATORY Monocyte % 10.6 % [facility] Monocyte Abs 0.9 0.3 - 0.9 x10(3)/[facility] LABORATORY Eos % 7.0 % [facility] Eosinophils Abs 0.6(H) 0.0 - 0.4 x10(3)/[facility] LABORATORY Basophil % 0.6 % [facility] Baso Absolute 0.0 0.0 - 0.1 x10(3)/[facility] LABORATORY Immature Gran % 8.10 % [facility] Comment: Immature granulocytes(IG's)percentage and absolute count will include metamyelocytes, myelocytes, and promyelocytes. Blood smears from CBCs yielding IG's will be scanned manually for concordance. If this scan disagrees with the automated IG or if promyelocytes are noted, a manual differential will be performed. Immature Gran Absolute 0.71(H) 0.00 - 0.04 x10(3)/ L [facility] Blood specimen (specimen) 09/10/2017 3:50 AM EST 09/10/2017 4:15 AM EST Narrative Resulting Agency Comment Spec In Lab Christopher Dalal MD HEMATOLOGY ORDERABLE S [facility] [place] [address] * (ABNORMAL) Hemogram (09/10/2017 3:50 AM EST) White Blood Cell 8.8 4.0 - 9.5 x10(3)/mc L [facility] Red Blood Cell 3.06(L) 4.58 - 5.54 x10(6)/mc L [facility] Hemoglobin 8.5(L) 13.7 - 16.5 gm/dL [facility] Hematocrit 25.7(L) 40.5 - 48.5 % [facility] Mean Cell Volume 84.0 82.9 - 93.1 fL [facility] Mean Cell Hemoglobin 27.8 27.5 - 32.1 pg [facility] Mean Cell Hemoglobin Concentration 33.1 32.0 - 35.7 gm/dL [facility] Platelet 332 145 - 357 x10(3)/mc L [facility] RDW Standard Deviation 45.8(H) 36.0 - 45.0 fL [facility] RDW coefficient of variation 15.7(H) 11.4 - 13.8 % [facility] Mean Platelet Volume 9.1 7.6 - 12.9 fL [facility] NRBC% auto 0.3 % [facility] NRBC Absolute 0.030(H) 0.000 - 0.000 x10(3)/mc L [facility] Blood specimen (specimen) 09/10/2017 3:50 AM EST 09/10/2017 4:15 AM EST Narrative Resulting Agency Comment Spec In Lab Christopher Dalal MD HEMATOLOGY ORDERABLE S [facility] [place] [address] * Sodium (09/10/2017 3:50 AM EST) Sodium 138 135 - 145 mmol/L [facility] Blood specimen (specimen) 09/10/2017 3:50 AM EST 09/10/2017 4:15 AM EST Narrative Resulting Agency Comment Spec In Lab Ren Sanchez III, MD CHEMISTRY ORDERABLES Performing Organization Address [facility] de Phone Number [facility] [place] [address] * Sodium (09/09/2017 11:02 AM EST) Sodium 141 135 - 145 mmol/L [facility] Blood specimen (specimen) 09/09/2017 11:02 AM EST 09/09/2017 11:13 AM EST Narrative Resulting Agency Comment Spec In Lab Ren Sanchez III, MD CHEMISTRY ORDERABLES Performing Organization Address [facility] de Phone Number [facility] [place] [address] * Scan, Peripheral Blood (09/09/2017 3:21 AM EST) Pathologist [facility] Plat estimate Normal [facility] RBC Morphology Abnormal [facility] Polychromasia Present >5/HPF [facility] Ovalocytes 1-5 /HPF [facility] Blood specimen (specimen) 09/09/2017 3:21 AM EST 09/09/2017 3:31 AM EST Narrative Resulting Agency Comment Spec In Lab Christopher Dalal MD HEMATOLOGY ORDERABLE S Performing Organization Address [facility] Co de Phone Number [facility] [address] * (ABNORMAL) Differential, Automated (09/09/2017 3:21 AM EST) Pathologist [facility] Neutrophil % 50.7 % [facility] Neutrophil Absolute 3.95 1.70 - 6.10 x10(3)/mc L [facility] Lymph % 21.8 % [facility] Lymphocytes Abs 1.7 0.9 - 3.2 x10(3)/[facility] LABORATORY Monocyte % 10.3 % [facility] Monocyte Abs 0.8 0.3 - 0.9 x10(3)/[facility] LABORATORY Eos % 7.9 % [facility] Eosinophils Abs 0.6(H) 0.0 - 0.4 x10(3)/[facility] LABORATORY Basophil % 0.8 % [facility] Baso Absolute 0.1 0.0 - 0.1 x10(3)/[facility] LABORATORY Immature Gran % 8.50 % [facility] Comment: Immature granulocytes(IG's)percentage and absolute count will include metamyelocytes, myelocytes, and promyelocytes. Blood smears from CBCs yielding IG's will be scanned manually for concordance. If this scan disagrees with the automated IG or if promyelocytes are noted, a manual differential will be performed. Immature Gran Absolute 0.66(H) 0.00 - 0.04 x10(3)/[facility]ORATORY Blood specimen (specimen) 09/09/2017 3:21 AM EST 09/09/2017 3:31 AM EST Narrative Resulting Agency Comment Spec In Lab Christopher Dalal MD HEMATOLOGY ORDERABLE S Performing Organization Address City/State/[facility] Co de Phone Number [facility] [place] [address] * (ABNORMAL) Hemogram (09/09/2017 3:21 AM EST) White Blood Cell 7.8 4.0 - 9.5 x10(3)/[facility] LABORATORY Red Blood Cell 2.80(L) 4.58 - 5.54 x10(6)/[facility] LABORATORY Hemoglobin 7.7(L) 13.7 - 16.5 gm/dL [facility] Hematocrit 23.7(L) 40.5 - 48.5 % [facility] Mean Cell Volume 84.6 82.9 - 93.1 fL [facility] Mean Cell Hemoglobin 27.5 27.5 - 32.1 pg [facility] Mean Cell Hemoglobin Concentration 32.5 32.0 - 35.7 gm/dL [facility] Platelet 245 145 - 357 x10(3)/mc L [facility] RDW Standard Deviation 46.8(H) 36.0 - 45.0 fL [facility] RDW coefficient of variation 15.5(H) 11.4 - 13.8 % [facility] Mean Platelet Volume 9.1 7.6 - 12.9 fL [facility] NRBC% auto 0.8 % [facility] NRBC Absolute 0.060(H) 0.000 - 0.000 x10(3)/mc L [facility] Blood specimen (specimen) 09/09/2017 3:21 AM EST 09/09/2017 3:31 AM EST Narrative Resulting Agency Comment Spec In Lab Christopher Dalal MD HEMATOLOGY ORDERABLE S Performing Organization Address City/[facility] Co de Phone Number [facility] [place] [address] * Sodium (09/09/2017 3:21 AM EST) Sodium 140 135 - 145 mmol/L [facility] Blood specimen (specimen) 09/09/2017 3:21 AM EST 09/09/2017 3:31 AM EST Narrative Resulting Agency Comment Spec In Lab Ren Sanchez III, MD CHEMISTRY ORDERABLES Performing Organization Address [facility] Co de Phone Number [facility] [place] [address] * Sodium (09/08/2017 6:19 PM EST) Sodium 138 135 - 145 mmol/L [facility] Blood specimen (specimen) 09/08/2017 6:19 PM EST 09/08/2017 6:26 PM EST Narrative Resulting Agency Comment Spec In Lab Ren Sanchez III, MD CHEMISTRY ORDERABLES Performing Organization Address City/[facility]/ZIP Co de Phone Number [facility] [place] [address] * U24 Hrs and Volume (09/08/2017 6:00 PM EST) Hours Collected 24 hour(s) [facility] Total Volume 4,700 mL [facility] Urine specimen (specimen) 09/08/2017 6:00 PM EST 09/08/2017 6:42 PM EST Narrative Resulting Agency Comment Spec In Lab Ren Sanchez III, MD CHEMISTRY ORDERABLES Performing Organization Address [facility] Hospital/[facility] Co de Phone Number [facility] [place] [address] * Phosphorus, urine, 24 hour (09/08/2017 6:00 PM EST) Phosphorus Concentration, U24 12.5 mg/dL [facility] Phosphorus, 24 Hour Urine 0.6 0.4 - 1.3 gm/24hr [facility] Urine specimen (specimen) 09/08/2017 6:00 PM EST 09/08/2017 6:42 PM EST Narrative Resulting Agency Comment Spec In Lab eRn Sanchez III, MD URINE ORDERABLES Performing Organization Address City/[facility]/ZIP Co de Phone Number [facility] [place] [address] * Creatinine, urine, 24 hour (09/08/2017 6:00 PM EST) Cre Concentration, U24 37 mg/dL [facility] Creatinine, 24 Hour Urine 1.74 0.80 - 1.90 gm/24hr [facility] Urine specimen (specimen) 09/08/2017 6:00 PM EST 09/08/2017 6:42 PM EST Narrative Resulting Agency Comment Spec In Lab Ren Sanchez III, MD URINE ORDERABLES Performing Organization Address [facility] Co de Phone Number [facility] [place] [address] * (ABNORMAL) Calcium, urine, 24 hour (09/08/2017 6:00 PM EST) Ca Concentration, U24 7.6 mg/dL [facility] Calcium, 24 Hour Urine 357.2(H) 50.0 - 300.0 mg/24hr [facility] Comment:Reference Range: 50. 0-300.0 mg/24 hour based on diet. Urine specimen (specimen) 09/08/2017 6:00 PM EST 09/08/2017 6:42 PM EST Narrative Resulting Agency Comment Spec In Lab Ren Sanchez III, MD URINE ORDERABLES Performing Organization Address [facility] Co de Phone Number [facility] [place] [address] * Sodium (09/08/2017 11:58 AM EST) Pathologist [facility] Sodium 141 135 - 145 mmol/L [facility] Blood specimen (specimen) 09/08/2017 11:58 AM EST 09/08/2017 12:11 PM EST Narrative Resulting Agency Comment Spec In Lab Ren Sanchez III, MD CHEMISTRY ORDERABLES Performing Organization Address [facility] Co de Phone Number [facility] [place] [address] * (ABNORMAL) Differential, Automated (09/08/2017 3:34 AM EST) Neutrophil % 53.0 % [facility] Neutrophil Absolute 3.33 1.70 - 6.10 x10(3)/mc L [facility] Lymph % 25.8 % [facility] Lymphocytes Abs 1.6 0.9 - 3.2 x10(3)/mc L [facility] Monocyte % 8.4 % [facility] Monocyte Abs 0.5 0.3 - 0.9 x10(3)/mc L [facility] Eos % 8.8 % [facility] Eosinophils Abs 0.6(H) 0.0 - 0.4 x10(3)/ L [facility] Basophil % 0.3 % [facility] Baso Absolute 0.0 0.0 - 0.1 x10(3)/ L [facility] Immature Gran % 3.70 % [facility] Comment: Immature granulocytes(IG's)percentage and absolute count will include metamyelocytes, myelocytes, and promyelocytes. Blood smears from CBCs yielding IG's will be scanned manually for concordance. If this scan disagrees with the automated IG or if promyelocytes are noted, a manual differential will be performed. Immature Gran Absolute 0.23(H) 0.00 - 0.04 x10(3)/ L [facility] Blood specimen (specimen) 09/08/2017 3:34 AM EST 09/08/2017 3:59 AM EST Narrative Resulting Agency Comment Spec In Lab Christopher Dalal MD HEMATOLOGY ORDERABLE S [facility] [place] [address] * (ABNORMAL) Hemogram (09/08/2017 3:34 AM EST) White Blood Cell 6.3 4.0 - 9.5 x10(3)/ L [facility] Red Blood Cell 2.64(L) 4.58 - 5.54 x10(6)/ L [facility] Hemoglobin 7.2(L) 13.7 - 16.5 gm/dL [facility] Hematocrit 21.8(L) 40.5 - 48.5 % [facility] Mean Cell Volume 82.6(L) 82.9 - 93.1 fL [facility] Mean Cell Hemoglobin 27.3(L) 27.5 - 32.1 pg [facility] Mean Cell Hemoglobin Concentration 33.0 32.0 - 35.7 gm/dL [facility] Platelet 206 145 - 357 x10(3)/mc L [facility] RDW Standard Deviation 45.4(H) 36.0 - 45.0 fL [facility] RDW coefficient of variation 15.4(H) 11.4 - 13.8 % [facility] Mean Platelet Volume 9.3 7.6 - 12.9 [facility] NRBC% auto 0.8 % [facility] NRBC Absolute 0.050(H) 0.000 - 0.000 x10(3)/mc L [facility] Blood specimen (specimen) 09/08/2017 3:34 AM EST 09/08/2017 3:59 AM EST Narrative Resulting Agency Comment Spec In Lab Christopher Dalal MD HEMATOLOGY ORDERABLE S Performing Organization Address City/[facility] Co de Phone Number [facility] [place] [address] * Sodium (09/08/2017 3:34 AM EST) Sodium 143 135 - 145 mmol/L [facility] Blood specimen (specimen) 09/08/2017 3:34 AM EST 09/08/2017 3:59 AM EST Narrative Resulting Agency Comment Spec In Lab Ren Sanchez III, MD CHEMISTRY ORDERABLES Performing Organization Address City/[facility]/ZIP Co de Phone Number [facility] [place] [address] * Phosphorus (09/08/2017 3:34 AM EST) Phosphorus 3.2 2.5 - 4.5 mg/dL [facility] Blood specimen (specimen) 09/08/2017 3:34 AM EST 09/08/2017 3:59 AM EST Narrative Resulting Agency Comment Spec In Lab Ren Sanchez III, MD CHEMISTRY ORDERABLES Performing Organization Address [facility] Co de Phone Number [facility] [place] [address] * (ABNORMAL) Calcium (09/08/2017 3:34 AM EST) Calcium 7.8(L) 8.5 - 10.5 mg/dL [facility] Blood specimen (specimen) 09/08/2017 3:34 AM EST 09/08/2017 3:59 AM EST Narrative Resulting Agency Comment Spec In Lab Ren Sanchez III, MD CHEMISTRY ORDERABLES Performing Organization Address [facility] Co de Phone Number [facility] [place] [address] * Sodium (09/07/2017 12:20 PM EST) Sodium 140 135 - 145 mmol/L [facility] Blood specimen (specimen) 09/07/2017 12:20 PM EST 09/07/2017 12:26 PM EST Narrative Resulting Agency Comment Spec In Lab Ren Sanchez III, MD CHEMISTRY ORDERABLES Performing Organization Address [facility] Co de Phone Number [facility] [place] [address] * Sodium (09/07/2017 4:01 AM EST) Sodium 141 135 - 145 mmol/L [facility] Blood specimen (specimen) 09/07/2017 4:01 AM EST 09/07/2017 4:33 AM EST Narrative Resulting Agency Comment Spec In Lab Fran Gilliam MD CHEMISTRY ORDERABL ES Performing Organization Address City/[facility] Co de Phone Number [facility] [place] [address] * (ABNORMAL) Differential, Automated (09/07/2017 4:01 AM EST) Neutrophil % 64.9 % [facility] Neutrophil Absolute 3.64 1.70 - 6.10 x10(3)/ L [facility] Lymph % 20.0 % [facility] Lymphocytes Abs 1.1 0.9 - 3.2 x10(3)/ L [facility] Monocyte % 7.8 % [facility] Monocyte Abs 0.4 0.3 - 0.9 x10(3)/[facility] LABORATORY Eos % 4.8 % [facility] Eosinophils Abs 0.3 0.0 - 0.4 x10(3)/[facility] LABORATORY Basophil % 0.5 % [facility] Baso Absolute 0.0 0.0 - 0.1 x10(3)/[facility]ORATORY Immature Gran % 2.00 % [facility] Comment: Immature granulocytes(IG's)percentage and absolute count will include metamyelocytes, myelocytes, and promyelocytes. Blood smears from CBCs yielding IG's will be scanned manually for concordance. If this scan disagrees with the automated IG or if promyelocytes are noted, a manual differential will be performed. Immature Gran Absolute 0.11(H) 0.00 - 0.04 x10(3)/ L [facility] Blood specimen (specimen) 09/07/2017 4:01 AM EST 09/07/2017 4:33 AM EST Narrative Resulting Agency Comment Spec In Lab Christopher Dalal MD HEMATOLOGY ORDERABLE S [facility] [place] [address] * (ABNORMAL) Hemogram (09/07/2017 4:01 AM EST) Pathologist [facility] White Blood Cell 5.6 4.0 - 9.5 x10(3)/ L [facility] Red Blood Cell 2.52(L) 4.58 - 5.54 x10(6)/mc L [facility] Hemoglobin 7.0(L) 13.7 - 16.5 gm/dL [facility] Hematocrit 20.5(L) 40.5 - 48.5 % [facility] Mean Cell Volume 81.3(L) 82.9 - 93.1 fL [facility] Mean Cell Hemoglobin 27.8 27.5 - 32.1 pg [facility] Mean Cell Hemoglobin Concentration 34.1 32.0 - 35.7 gm/dL [facility] Platelet 162 145 - 357 x10(3)/[facility] LABORATORY RDW Standard Deviation 44.5 36.0 - 45.0 [facility]ORY RDW coefficient of variation 15.3(H) 11.4 - 13.8 % [facility] Mean Platelet Volume 9.5 7.6 - 12.9 [facility]ORY NRBC% auto 0.4 % [facility] NRBC Absolute 0.020(H) 0.000 - 0.000 x10(3)/[facility] Blood specimen (specimen) 09/07/2017 4:01 AM EST 09/07/2017 4:33 AM EST Narrative Resulting Agency Comment Spec In Lab Christopher Dalal MD HEMATOLOGY ORDERABLE S [facility] [place] [address] * Sodium (09/06/2017 11:27 PM EST) Sodium 144 135 - 145 mmol/L [facility] Blood specimen (specimen) 09/06/2017 11:27 PM EST 09/07/2017 12:10 AM EST Narrative Resulting Agency Comment Spec In Lab Fran Gilliam MD CHEMISTRY ORDERABL ES Performing Organization Address [facility] Co de Phone Number [facility] [place] [address] * (ABNORMAL) Calcium (09/06/2017 11:27 PM EST) Calcium 7.6(L) 8.5 - 10.5 mg/dL [facility] Blood specimen (specimen) 09/06/2017 11:27 PM EST 09/07/2017 12:10 AM EST Narrative Resulting Agency Comment Spec In Lab Ren Sanchez III, MD CHEMISTRY ORDERABLES Performing Organization Address [facility] Co de Phone Number [facility] [place] [address] * Phosphorus (09/06/2017 11:27 PM EST) Phosphorus 3.4 2.5 - 4.5 mg/dL [facility] Blood specimen (specimen) 09/06/2017 11:27 PM EST 09/07/2017 12:10 AM EST Narrative Resulting Agency Comment Spec In Lab Ren Sanchez III, MD CHEMISTRY ORDERABLES Performing Organization Address [facility] Co de Phone Number [facility] [place] [address] * Sodium (09/06/2017 7:41 PM EST) Sodium 143 135 - 145 mmol/L [facility] Blood specimen (specimen) 09/06/2017 7:41 PM EST 09/06/2017 7:45 PM EST Narrative Resulting Agency Comment Spec In Lab Fran Gilliam MD CHEMISTRY ORDERABL ES Performing Organization Address [facility] Co de Phone Number [facility] [place] [address] * Sodium (09/06/2017 3:49 PM EST) Sodium 144 135 - 145 mmol/L [facility] Blood specimen (specimen) Venous Draw / Unknown 09/06/2017 3:49 PM EST 09/06/2017 3:58 PM EST Narrative Resulting Agency Comment Spec In Lab Guerrero Tillman MD CHEMISTRY HERMES HANNON Performing Organization Address [facility] Co de Phone Number [facility] [place] [address] * (ABNORMAL) Calcium (09/06/2017 3:49 PM EST) Calcium 8.0(L) 8.5 - 10.5 mg/dL [facility] Blood specimen (specimen) 09/06/2017 3:49 PM EST 09/06/2017 3:58 PM EST Narrative Resulting Agency Comment Spec In Lab Ren Sanchez III, MD CHEMISTRY ORDERABLES Performing Organization Address [facility] Co de Phone Number [facility] [place] [address] * Phosphorus (09/06/2017 3:49 PM EST) Phosphorus 3.9 2.5 - 4.5 mg/dL [facility] Blood specimen (specimen) 09/06/2017 3:49 PM EST 09/06/2017 3:58 PM EST Narrative Resulting Agency Comment Spec In Lab Ren Sanchez III, MD CHEMISTRY ORDERABLES Performing Organization Address [facility] Co de Phone Number [facility] [place] [address] * (ABNORMAL) Albumin Level (09/06/2017 12:31 PM EST) Albumin 2.5(L) 3.2 - 5.2 gm/dL [facility] Blood specimen (specimen) 09/06/2017 12:31 PM EST 09/06/2017 12:38 PM EST Narrative Resulting Agency Comment Spec In Lab Genevieve Page MD CHEMISTRY ORDERABLES Performing Organization Address [facility] Co de Phone Number [facility] [place] [address] * Sodium (09/06/2017 12:31 PM EST) Sodium 145 135 - 145 mmol/L [facility] Blood specimen (specimen) 09/06/2017 12:31 PM EST 09/06/2017 12:37 PM EST Narrative Resulting Agency Comment Spec In Lab Fran Gilliam MD CHEMISTRY ORDERABL ES Performing Organization Address [facility] de Phone Number [facility] [place] [address] * (ABNORMAL) Albumin Level (09/06/2017 8:33 AM EST) Albumin 2.4(L) 3.2 - 5.2 gm/dL [facility] Blood specimen (specimen) 09/06/2017 8:33 AM EST 09/06/2017 8:39 AM EST Narrative Resulting Agency Comment Spec In Lab Genevieve Page MD CHEMISTRY ORDERABLES Performing Organization Address [facility] de Phone Number [facility] [place] [address] * Phosphorus (09/06/2017 8:33 AM EST) Phosphorus 3.2 2.5 - 4.5 mg/dL [facility] Blood specimen (specimen) 09/06/2017 8:33 AM EST 09/06/2017 8:39 AM EST Narrative Resulting Agency Comment Spec In Lab Fran Gilliam MD CHEMISTRY ORDERABL ES Performing Organization Address [facility] Co de Phone Number [facility] [place] [address] * (ABNORMAL) Calcium (09/06/2017 8:33 AM EST) Calcium 8.1(L) 8.5 - 10.5 mg/dL [facility] Blood specimen (specimen) 09/06/2017 8:33 AM EST 09/06/2017 8:39 AM EST Narrative Resulting Agency Comment Spec In Lab Fran Gilliam MD CHEMISTRY ORDERABL ES Performing Organization Address [facility]/ZIP Co de Phone Number [facility] [place] [address] * (ABNORMAL) Sodium (09/06/2017 8:33 AM EST) Sodium 146(H) 135 - 145 mmol/L [facility] Blood specimen (specimen) 09/06/2017 8:33 AM EST 09/06/2017 8:39 AM EST Narrative Resulting Agency Comment Spec In Lab Fran Gilliam MD CHEMISTRY ORDERABL ES Performing Organization Address [facility] Co de Phone Number [facility] [place] [address] * (ABNORMAL) Basic Metabolic Panel (non-fasting) (09/06/2017 8:33 AM EST) Glucose 72 65 - 199 mg/dL [facility] Comment:Diabetes: >=200 mg/d L plus symptoms Blood Urea Nitrogen 18 10 - 20 mg/dL [facility] Creatinine 0.79(L) 0.80 - 1.50 mg/dL [facility] Sodium 146(H) 135 - 145 mmol/L [facility] Potassium 3.7 3.5 - 5.0 mmol/L [facility] Comment: Please note: ??Patients with WBC >100,000 may have falsely elevated Potassium levels. ??For accurate Potassium quantification in these patients send serum separator tube (gold top) for subsequent determinations. ??Contact the Clinical Chemistry Laboratory if there are any questions. Chloride 111(H) 98 - 107 mmol/L [facility] Carbon Dioxide 26 22 - 31 mmol/L [facility] Anion Gap 9 5 - 15 mmol/L [facility] Calcium 8.1(L) 8.5 - 10.5 mg/dL [facility] Est Glomerular Filtration Rate >60 >=60 [facility] Comment: The reported eGFR should be multiplied by 1.2 for patients. The MDRD is not an appropriate measure of renal function for patients with body mass extremes or in patients with acute kidney failure. http://[email or web address]/DHnkdep [email or web address]://[email or web address] Blood specimen (specimen) 09/06/2017 8:33 AM EST 09/06/2017 8:39 AM EST Narrative Resulting Agency Comment Spec In Lab Fran Gilliam MD CHEMISTRY ORDERABL ES [facility] [place] [address] * (ABNORMAL) Hemogram (09/06/2017 8:33 AM EST) White Blood Cell 7.0 4.0 - 9.5 x10(3)/mc L [facility] Red Blood Cell 2.87(L) 4.58 - 5.54 x10(6)/mc L [facility] Hemoglobin 7.8(L) 13.7 - 16.5 gm/dL [facility] Hematocrit 23.4(L) 40.5 - 48.5 % [facility] Mean Cell Volume 81.5(L) 82.9 - 93.1 fL [facility] Mean Cell Hemoglobin 27.2(L) 27.5 - 32.1 pg [facility] Mean Cell Hemoglobin Concentration 33.3 32.0 - 35.7 gm/dL [facility] Platelet 149 145 - 357 x10(3)/mc L [facility] RDW Standard Deviation 44.3 36.0 - 45.0 fL [facility] RDW coefficient of variation 15.2(H) 11.4 - 13.8 % [facility] Mean Platelet Volume 9.8 7.6 - 12.9 fL [facility] NRBC% auto 0.3 % [facility] NRBC Absolute 0.020(H) 0.000 - 0.000 x10(3)/mc L [facility] Blood specimen (specimen) 09/06/2017 8:33 AM EST 09/06/2017 8:39 AM EST Narrative Resulting Agency Comment Spec In Lab Juliet Medeiros APRN HEMATOLOGY ORDERABLE S [facility] [place] [address] * (ABNORMAL) Basic Metabolic Panel (non-fasting) (09/06/2017 4:31 AM EST) Glucose 92 65 - 199 mg/dL [facility] Comment:Diabetes: >=200 mg/d L plus symptoms Blood Urea Nitrogen 16 10 - 20 mg/dL [facility] Comment:result rechecked-IMM Creatinine 0.75(L) 0.80 - 1.50 mg/dL [facility] Sodium 144 135 - 145 mmol/L [facility] Potassium 3.6 3.5 - 5.0 mmol/L [facility] Comment: Please note: ??Patients with WBC >100,000 may have falsely elevated Potassium levels. ??For accurate Potassium quantification in these patients send serum separator tube (gold top) for subsequent determinations. ??Contact the Clinical Chemistry Laboratory if there are any questions. Chloride 109(H) 98 - 107 mmol/L [facility] Carbon Dioxide 25 22 - 31 mmol/L [facility] Anion Gap 10 5 - 15 mmol/L [facility] Calcium 7.7(L) 8.5 - 10.5 mg/dL [facility] Est Glomerular Filtration Rate >60 >=60 [facility] Comment: The reported eGFR should be multiplied by 1.2 for patients. The MDRD is not an appropriate measure of renal function for patients with body mass extremes or in patients with acute kidney failure. http://[email or web address]/DHnkdep [email or web address]://ilab/[email or web address] Blood specimen (specimen) 09/06/2017 4:31 AM EST 09/06/2017 5:04 AM EST Narrative Resulting Agency Comment Spec In Lab Fran Gilliam MD CHEMISTRY ORDERABL ES Performing Organization Address [facility] Co de Phone Number [facility] [place] [address] * Phosphorus (09/06/2017 4:31 AM EST) Phosphorus 3.5 2.5 - 4.5 mg/dL [facility] Blood specimen (specimen) 09/06/2017 4:31 AM EST 09/06/2017 5:04 AM EST Narrative Resulting Agency Comment Spec In Lab Fran Gilliam MD CHEMISTRY ORDERABL ES Performing Organization Address [facility] Co de Phone Number [facility] [place] [address] * (ABNORMAL) Calcium (09/06/2017 4:31 AM EST) Calcium 7.7(L) 8.5 - 10.5 mg/dL [facility] Blood specimen (specimen) 09/06/2017 4:31 AM EST 09/06/2017 5:04 AM EST Narrative Resulting Agency Comment Spec In Lab Fran Gilliam MD CHEMISTRY ORDERABL ES Performing Organization Address [facility] Co de Phone Number [facility] [place] [address] * Sodium (09/06/2017 4:31 AM EST) Sodium 144 135 - 145 mmol/L [facility] Blood specimen (specimen) 09/06/2017 4:31 AM EST 09/06/2017 5:04 AM EST Narrative Resulting Agency Comment Spec In Lab Fran Gilliam MD CHEMISTRY ORDERABL ES Performing Organization Address [facility]/ZIP Co de Phone Number [facility] [place] [address] * (ABNORMAL) Albumin Level (09/06/2017 4:31 AM EST) Pathologist [facility] Albumin 2.6(L) 3.2 - 5.2 gm/dL [facility] Blood specimen (specimen) 09/06/2017 4:31 AM EST 09/06/2017 5:05 AM EST Narrative Resulting Agency Comment Spec In Lab Genevieve Page MD CHEMISTRY ORDERABLES Performing Organization Address [facility] Co de Phone Number [facility] [address] * (ABNORMAL) Differential, Automated (09/06/2017 4:31 AM EST) Neutrophil % 60.5 % [facility] Neutrophil Absolute 4.00 1.70 - 6.10 x10(3)/mc L [facility] Lymph % 24.2 % [facility] Lymphocytes Abs 1.6 0.9 - 3.2 x10(3)/mc L [facility] Monocyte % 9.5 % [facility] Monocyte Abs 0.6 0.3 - 0.9 x10(3)/mc L [facility] Eos % 3.8 % [facility] Eosinophils Abs 0.2 0.0 - 0.4 x10(3)/mc L [facility] Basophil % 0.5 % [facility] Baso Absolute 0.0 0.0 - 0.1 x10(3)/mc L [facility] Immature Gran % 1.50 % [facility] Comment: Immature granulocytes(IG's)percentage and absolute count will include metamyelocytes, myelocytes, and promyelocytes. Blood smears from CBCs yielding IG's will be scanned manually for concordance. If this scan disagrees with the automated IG or if promyelocytes are noted, a manual differential will be performed. Immature Gran Absolute 0.10(H) 0.00 - 0.04 x10(3)/mc L [facility] Blood specimen (specimen) 09/06/2017 4:31 AM EST 09/06/2017 5:04 AM EST Narrative Resulting Agency Comment Spec In Lab Christopher Dalal MD HEMATOLOGY ORDERABLE S [facility] [place] [address] * (ABNORMAL) Hemogram (09/06/2017 4:31 AM EST) White Blood Cell 6.6 4.0 - 9.5 x10(3)/mc L [facility] Red Blood Cell 2.72(L) 4.58 - 5.54 x10(6)/ L [facility] Hemoglobin 7.4(L) 13.7 - 16.5 gm/dL [facility] Comment: This result has been called to [place] FORMAN by Desean Pope on 09 06 2017 at 0515, and has been read back. Hematocrit 22.2(L) 40.5 - 48.5 % [facility] Mean Cell Volume 81.6(L) 82.9 - 93.1 fL [facility] Mean Cell Hemoglobin 27.2(L) 27.5 - 32.1 pg [facility] Mean Cell Hemoglobin Concentration 33.3 32.0 - 35.7 gm/dL [facility] Platelet 153 145 - 357 x10(3)/mc L [facility] RDW Standard Deviation 43.5 36.0 - 45.0 fL [facility] RDW coefficient of variation 14.9(H) 11.4 - 13.8 % [facility] Mean Platelet Volume 10.3 7.6 - 12.9 fL [facility] NRBC% auto 0.3 % [facility] NRBC Absolute 0.020(H) 0.000 - 0.000 x10(3)/mc L [facility] Blood specimen (specimen) 09/06/2017 4:31 AM EST 09/06/2017 5:04 AM EST Narrative Resulting Agency Comment Spec In Lab Christopher Dalal MD HEMATOLOGY ORDERABLE S Performing Organization Address [facility] Co de Phone Number [facility] [place] [address] * Phosphorus (09/05/2017 11:14 PM EST) Phosphorus 2.9 2.5 - 4.5 mg/dL [facility] Blood specimen (specimen) 09/05/2017 11:14 PM EST 09/05/2017 11:26 PM EST Narrative Resulting Agency Comment Spec In Lab Fran Gilliam MD CHEMISTRY ORDERABL ES Performing Organization Address [facility] Co de Phone Number [facility] [address] * (ABNORMAL) Calcium (09/05/2017 11:14 PM EST) Calcium 7.6(L) 8.5 - 10.5 mg/dL [facility] Blood specimen (specimen) 09/05/2017 11:14 PM EST 09/05/2017 11:26 PM EST Narrative Resulting Agency Comment Spec In Lab Fran Gilliam MD CHEMISTRY ORDERABL ES Performing Organization Address [facility] Co de Phone Number [facility] [address] * Sodium (09/05/2017 11:14 PM EST) Sodium 142 135 - 145 mmol/L [facility] Blood specimen (specimen) 09/05/2017 11:14 PM EST 09/05/2017 11:26 PM EST Narrative Resulting Agency Comment Spec In Lab Fran Gilliam MD CHEMISTRY ORDERABL ES Performing Organization Address [facility] Co de Phone Number [facility] [place] [address] * (ABNORMAL) Albumin Level (09/05/2017 11:14 PM EST) Albumin 2.3(L) 3.2 - 5.2 gm/dL [facility] Blood specimen (specimen) 09/05/2017 11:14 PM EST 09/05/2017 11:26 PM EST Narrative Resulting Agency Comment Spec In Lab Genevieve Page MD CHEMISTRY ORDERABLES Performing Organization Address [facility] Co de Phone Number [facility] [place] [address] * (ABNORMAL) Albumin Level (09/05/2017 7:08 PM EST) Albumin 2.4(L) 3.2 - 5.2 gm/dL [facility] Blood specimen (specimen) Venous Draw / Unknown 09/05/2017 7:08 PM EST 09/05/2017 7:18 PM EST Narrative Resulting Agency Comment Spec In Lab Genevieve Page MD CHEMISTRY ORDERABLES Performing Organization Address [facility] Co de Phone Number [facility] [place] [address] * (ABNORMAL) Phosphorus (09/05/2017 7:08 PM EST) Phosphorus 2.0(L) 2.5 - 4.5 mg/dL [facility] Comment:result rechecked- Blood specimen (specimen) 09/05/2017 7:08 PM EST 09/05/2017 7:12 PM EST Narrative Resulting Agency Comment Spec In Lab Fran Gilliam MD CHEMISTRY ORDERABL ES Performing Organization Address [facility]/ZIP Co de Phone Number [facility] [place] [address] * (ABNORMAL) Calcium (09/05/2017 7:08 PM EST) Calcium 7.4(L) 8.5 - 10.5 mg/dL [facility] Blood specimen (specimen) 09/05/2017 7:08 PM EST 09/05/2017 7:12 PM EST Narrative Resulting Agency Comment Spec In Lab Fran Gilliam MD CHEMISTRY ORDERABL ES Performing Organization Address [facility] Co de Phone Number [facility] [place] [address] * Sodium (09/05/2017 7:08 PM EST) Sodium 145 135 - 145 mmol/L [facility] Blood specimen (specimen) 09/05/2017 7:08 PM EST 09/05/2017 7:12 PM EST Narrative Resulting Agency Comment Spec In Lab Fran Gilliam MD CHEMISTRY ORDERABL ES Performing Organization Address [facility] Co de Phone Number [facility] [place] [address] * 1,25-dihydroxycholecalciferol (09/05/2017 4:54 PM EST) Vit D 1,25 Dihydroxy (NOVEMBER) 57 18 - 64 pg/mL [facility] Comment: ADDITIONAL INFORMATION This test was developed and its performance characteristics determined by [facility] in a manner consistent with CLIA requirements. This test has not been cleared or approved by the U.S. Food and Drug Administration. Test Performed by: [facility] - [address] [address] Blood specimen (specimen) 09/05/2017 4:54 PM EST 09/08/2017 2:05 PM EST Narrative Resulting Agency Comment Spec In Lab Fran Gilliam MD LAB SEND OUT ORDER LYNDSEY Performing Organization Address [facility] Co de Phone Number [facility] [place] [address] * (ABNORMAL) Electrolytes panel (09/05/2017 3:06 PM EST) Sodium 146(H) 135 - 145 mmol/L [facility] Potassium 3.9 3.5 - 5.0 mmol/L [facility] Comment: Please note: ??Patients with WBC >100,000 may have falsely elevated Potassium levels. ??For accurate Potassium quantification in these patients send serum separator tube (gold top) for subsequent determinations. ??Contact the Clinical Chemistry Laboratory if there are any questions. Chloride 114(H) 98 - 107 mmol/L [facility] Carbon Dioxide 24 22 - 31 mmol/L [facility] Anion Gap 8 5 - 15 mmol/L [facility] Blood specimen (specimen) 09/05/2017 3:06 PM EST 09/05/2017 3:16 PM EST Narrative Resulting Agency Comment Spec In Lab Fran Gilliam MD CHEMISTRY ORDERABL ES Performing Organization Address [facility] Co de Phone Number [facility] [place] [address] * PTH (09/05/2017 11:29 AM EST) Parathyroid Hormone 29 15 - 65 pg/mL [facility] Blood specimen (specimen) 09/05/2017 11:29 AM EST 09/05/2017 11:48 AM EST Narrative Resulting Agency Comment Spec In Lab Fran Gilliam MD CHEMISTRY ORDERABL ES Performing Organization Address [facility]/ZIP Co de Phone Number [facility] [place] [address] * Vitamin D, 25-Hydroxy (09/05/2017 11:29 AM EST) Vitamin D Total 25 OH 34 30 - 100 ng/mL [facility] Comment: Deficient <10 ng/mL Insufficient 10 to 29 ng/mL Sufficient 30 to 100 ng/mL Potential Intoxication >100 ng/mL According to the [place] National Osteoporosis Foundation, Vitamin D concentrations >30 ng/mL are sufficient to protect bone health. ??The National Kidney Foundation has similarly stated that patients with Vitamin D concentrations <30ng/mL should be considered to be insufficient or deficient. http://ilab/nkf-guidelines http://ilab/nejm-VitD The [employer] iSYS Vitamin D Immunoassay detects both 25-OH Vitamin D2 and 25-OH Vitamin D3, but only a total Vitamin D concentration is reported. Blood specimen (specimen) 09/05/2017 11:29 AM EST 09/05/2017 1:31 PM EST Narrative Resulting Agency Comment Spec In Lab Fran Gilliam MD CHEMISTRY ORDERABL ES [facility] [place] [address] * (ABNORMAL) Electrolytes panel (09/05/2017 11:29 AM EST) Sodium 148(H) 135 - 145 mmol/L [facility] Potassium 4.1 3.5 - 5.0 mmol/L [facility] Comment: Please note: ??Patients with WBC >100,000 may have falsely elevated Potassium levels. ??For accurate Potassium quantification in these patients send serum separator tube (gold top) for subsequent determinations. ??Contact the Clinical Chemistry Laboratory if there are any questions. Chloride 113(H) 98 - 107 mmol/L [facility] Carbon Dioxide 24 22 - 31 mmol/L [facility] Anion Gap 11 5 - 15 mmol/L [facility] Blood specimen (specimen) 09/05/2017 11:29 AM EST 09/05/2017 11:48 AM EST Narrative Resulting Agency Comment Spec In Lab Juliet Guerrerorojelio SANTANA CHEMISTRY ORDERABLES Performing Organization Address [facility]/ZIP Co de Phone Number [facility] [place] [address] * (ABNORMAL) Phosphorus (09/05/2017 4:16 AM EST) [facility] Phosphorus 1.1(Critic al) 2.5 - 4.5 mg/dL [facility] Comment:Called by: MOISES, Read back by: ADRIANE FINLEY, Date/Time:09/05/17 05:43. Blood specimen (specimen) 09/05/2017 4:16 AM EST 09/05/2017 4:52 AM EST Narrative Resulting Agency Comment Spec In Lab Juliet Guerrerorojelio SANTANA CHEMISTRY ORDERABLES Performing Organization Address [facility]/ZIP Co de Phone Number [facility] [place] [address] * (ABNORMAL) Differential, Automated (09/05/2017 2:35 AM EST) [facility] Neutrophil % 84.1 % [facility] Neutrophil Absolute 7.20(H) 1.70 - 6.10 x10(3)/mc L [facility] Lymph % 5.0 % [facility] Lymphocytes Abs 0.4(L) 0.9 - 3.2 x10(3)/mc L [facility] Monocyte % 9.4 % [facility] Monocyte Abs 0.8 0.3 - 0.9 x10(3)/mc L [facility] Eos % 0.3 % [facility] Eosinophils Abs 0.0 0.0 - 0.4 x10(3)/mc L [facility] Basophil % 0.2 % [facility] Baso Absolute 0.0 0.0 - 0.1 x10(3)/mc L [facility] Immature Gran % 1.00 % [facility] Comment: Immature granulocytes(IG's)percentage and absolute count will include metamyelocytes, myelocytes, and promyelocytes. Blood smears from CBCs yielding IG's will be scanned manually for concordance. If this scan disagrees with the automated IG or if promyelocytes are noted, a manual differential will be performed. Immature Gran Absolute 0.09(H) 0.00 - 0.04 x10(3)/ L [facility] Blood specimen (specimen) 09/05/2017 2:35 AM EST 09/05/2017 2:42 AM EST Narrative Resulting Agency Comment Spec In Lab Christopher Dalal MD HEMATOLOGY ORDERABLE S Performing Organization Address City/State/[facility] Co de Phone Number [facility] [place] [address] * (ABNORMAL) Hemogram (09/05/2017 2:35 AM EST) White Blood Cell 8.6 4.0 - 9.5 x10(3)/[facility]ATORY Red Blood Cell 3.98(L) 4.58 - 5.54 x10(6)/[facility]ORY Hemoglobin 10.9(L) 13.7 - 16.5 gm/dL [facility] Hematocrit 31.5(L) 40.5 - 48.5 % [facility] Mean Cell Volume 79.1(L) 82.9 - 93.1 fL [facility] Mean Cell Hemoglobin 27.4(L) 27.5 - 32.1 pg [facility] Mean Cell Hemoglobin Concentration 34.6 32.0 - 35.7 gm/dL [facility] Platelet 169 145 - 357 x10(3)/[facility]ATORY RDW Standard Deviation 41.2 36.0 - 45.0 fL [facility] RDW coefficient of variation 14.2(H) 11.4 - 13.8 % [facility] Mean Platelet Volume 10.0 7.6 - 12.9 fL [facility] NRBC% auto 0.0 % [facility] NRBC Absolute 0.000 0.000 - 0.000 x10(3)/mc L [facility] Blood specimen (specimen) 09/05/2017 2:35 AM EST 09/05/2017 2:42 AM EST Narrative Resulting Agency Comment Spec In Lab Christopher Dalal MD HEMATOLOGY ORDERABLE S [facility] [place] [address] * (ABNORMAL) Basic Metabolic Panel (non-fasting) (09/05/2017 2:35 AM EST) Glucose 203(H) 65 - 199 mg/dL [facility] Comment:Diabetes: >=200 mg/d L plus symptoms Blood Urea Nitrogen 8(L) 10 - 20 mg/dL [facility] Creatinine 0.85 0.80 - 1.50 mg/dL [facility] Sodium 148(H) 135 - 145 mmol/L [facility] Comment:result rechecked-imm Potassium 4.1 3.5 - 5.0 mmol/L [facility] Comment: Please note: ??Patients with WBC >100,000 may have falsely elevated Potassium levels. ??For accurate Potassium quantification in these patients send serum separator tube (gold top) for subsequent determinations. ??Contact the Clinical Chemistry Laboratory if there are any questions. Chloride 112(H) 98 - 107 mmol/L [facility] Comment:result rechecked-imm Carbon Dioxide 23 22 - 31 mmol/L [facility] Anion Gap 13 5 - 15 mmol/L [facility] Calcium 7.8(L) 8.5 - 10.5 mg/dL [facility] Est Glomerular Filtration Rate >60 >=60 [facility] Comment: The reported eGFR should be multiplied by 1.2 for patients. The MDRD is not an appropriate measure of renal function for patients with body mass extremes or in patients with acute kidney failure. http://LinkoTec.Swyft/DHnkdep http://LinkoTec.Swyft/DHMCnkf Blood specimen (specimen) 09/05/2017 2:35 AM EST 09/05/2017 2:42 AM EST Narrative Resulting Agency Comment Spec In Lab Fran Gilliam MD CHEMISTRY ORDERABL ES Performing Organization Address [facility] Co de Phone Number [facility] [place] [address] * Magnesium (09/05/2017 2:35 AM EST) Magnesium 0.80 0.69 - 1.07 mmol/L [facility] Blood specimen (specimen) 09/05/2017 2:35 AM EST 09/05/2017 2:42 AM EST Narrative Resulting Agency Comment Spec In Lab Juliet Medeiros APRN CHEMISTRY ORDERABLES Performing Organization Address [facility] Co de Phone Number [facility] [place] [address] * EKG 12 Lead (09/04/2017 10:30 PM EST) Ventricular rate 143 BPM MUSE SYSTEM Atrial Rate 143 BPM MUSE SYSTEM P-R Interval 130 ms MUSE SYSTEM QRS Duration 78 ms MUSE SYSTEM Q-T Interval 278 ms MUSE SYSTEM QTC Calculated (Bezet) 429 ms MUSE SYSTEM Calculated P [place] 34 degrees MUSE SYSTEM Calculated R [place] 48 degrees MUSE SYSTEM Calculated T [place] 45 degrees MUSE SYSTEM INTERPRETATION Sinus tachycardia Nonspecific ST abnormality Abnormal ECG No previous ECGs available Confirmed by MD Scottie, Sally ([id number]) on 09/05/2017 3:49:31 PM MUSE SYSTEM 09/04/2017 10:3 0 PM EST 09/05/2017 3:49 PM EST Juliet Medeiros APRN ECG ORDERABLES Performing Organization Address [facility]/ZIP Co de Phone Number MUSE SYSTEM * (ABNORMAL) Electrolytes panel (09/04/2017 7:23 PM EST) Pathologist [facility] Sodium 137 135 - 145 mmol/L [facility] Potassium 5.1(H) 3.5 - 5.0 mmol/L [facility] Comment: Please note: ??Patients with WBC >100,000 may have falsely elevated Potassium levels. ??For accurate Potassium quantification in these patients send serum separator tube (gold top) for subsequent determinations. ??Contact the Clinical Chemistry Laboratory if there are any questions. Chloride 102 98 - 107 mmol/L [facility] Carbon Dioxide 23 22 - 31 mmol/L [facility] Anion Gap 12 5 - 15 mmol/L [facility] Blood specimen (specimen) 09/04/2017 7:23 PM EST 09/04/2017 7:27 PM EST Narrative Resulting Agency Comment Spec In Lab Fran Gilliam MD CHEMISTRY ORDERABL ES Performing Organization Address City/[facility]/ZIP Co de Phone Number [facility] [address] * POCT Glucose (09/04/2017 7:00 PM EST) [facility] Glucose, POC 132 65 - 199 mg/dL [facility] Comment: Supplemental ranges: <140 mg/dL before meals <180 mg/dL all other times of the day Blood specimen (specimen) 09/04/2017 7:00 PM EST 09/04/2017 7:00 PM EST Fran Gilliam MD POINT OF CARE TEST ORDERABLES [facility] [place] [address] * (ABNORMAL) Differential, Automated (09/04/2017 3:49 PM EST) [facility] Neutrophil % 86.3 % [facility] Neutrophil Absolute 7.08(H) 1.70 - 6.10 x10(3)/mc L [facility] Lymph % 5.2 % [facility] Lymphocytes Abs 0.4(L) 0.9 - 3.2 x10(3)/ L [facility] Monocyte % 6.2 % [facility] Monocyte Abs 0.5 0.3 - 0.9 x10(3)/ L [facility] Eos % 1.2 % [facility] Eosinophils Abs 0.1 0.0 - 0.4 x10(3)/[facility] LABORATORY Basophil % 0.1 % [facility] Baso Absolute 0.0 0.0 - 0.1 x10(3)/[facility] LABORATORY Immature Gran % 1.00 % [facility] Comment: Immature granulocytes(IG's)percentage and absolute count will include metamyelocytes, myelocytes, and promyelocytes. Blood smears from CBCs yielding IG's will be scanned manually for concordance. If this scan disagrees with the automated IG or if promyelocytes are noted, a manual differential will be performed. Immature Gran Absolute 0.08(H) 0.00 - 0.04 x10(3)/[facility] LABORATORY Blood specimen (specimen) 09/04/2017 3:49 PM EST 09/04/2017 3:59 PM EST Narrative Resulting Agency Comment Spec In Lab Dario Chavez MD HEMATOLOGY ORDERABLE S Performing Organization Address City/State/[facility] Co de Phone Number [facility] [place] [address] * (ABNORMAL) Hemogram (09/04/2017 3:49 PM EST) White Blood Cell 8.2 4.0 - 9.5 x10(3)/[facility] LABORATORY Red Blood Cell 4.05(L) 4.58 - 5.54 x10(6)/ L [facility] Hemoglobin 11.1(L) 13.7 - 16.5 gm/dL [facility] Hematocrit 33.0(L) 40.5 - 48.5 % [facility] Mean Cell Volume 81.5(L) 82.9 - 93.1 fL [facility] Mean Cell Hemoglobin 27.4(L) 27.5 - 32.1 pg [facility] Mean Cell Hemoglobin Concentration 33.6 32.0 - 35.7 gm/dL [facility] Platelet 118(L) 145 - 357 x10(3)/mc L [facility] RDW Standard Deviation 41.2 36.0 - 45.0 fL [facility] RDW coefficient of variation 14.0(H) 11.4 - 13.8 % [facility] Mean Platelet Volume 9.9 7.6 - 12.9 [facility] LABORATORY NRBC% auto 0.0 % [facility] NRBC Absolute 0.000 0.000 - 0.000 x10(3)/mc L [facility] Blood specimen (specimen) 09/04/2017 3:49 PM EST 09/04/2017 3:59 PM EST Narrative Resulting Agency Comment Spec In Lab Dario Chavez MD HEMATOLOGY ORDERABLE S [facility] [place] [address] * (ABNORMAL) Electrolytes panel (09/04/2017 3:49 PM EST) Sodium 129(L) 135 - 145 mmol/L [facility] Potassium 4.4 3.5 - 5.0 mmol/L [facility] Comment: Please note: ??Patients with WBC >100,000 may have falsely elevated Potassium levels. ??For accurate Potassium quantification in these patients send serum separator tube (gold top) for subsequent determinations. ??Contact the Clinical Chemistry Laboratory if there are any questions. Chloride 97(L) 98 - 107 mmol/L [facility] Carbon Dioxide 22 22 - 31 mmol/L [facility] Anion Gap 10 5 - 15 mmol/L [facility] Blood specimen (specimen) 09/04/2017 3:49 PM EST 09/04/2017 3:59 PM EST Narrative Resulting Agency Comment Spec In Lab Fran Gilliam MD CHEMISTRY ORDERABL ES Performing Organization Address [facility] Co de Phone Number [facility] [address] * (ABNORMAL) Hemoglobin and Hematocrit, blood (09/04/2017 3:49 PM EST) Hemoglobin 11.0(L) 13.7 - 16.5 gm/dL [facility] Hematocrit 33.3(L) 40.5 - 48.5 % [facility] Blood specimen (specimen) 09/04/2017 3:49 PM EST 09/04/2017 3:59 PM EST Narrative Resulting Agency Comment Spec In Lab Fran Gilliam MD HEMATOLOGY ORDERAB LES Performing Organization Address [facility] Co de Phone Number [facility] [place] [address] * XR Pelvis Judet or In Out [...] left ischial and acetabular fracture with multiple [id number] constructs. Tubing that could represent a surgical [...] described left ischial and acetabular fracture with [id number] constructs. Tubing that could represent a surgical drain is seen with itstip projecting over the left iliac region. Additional tubing is faintly seen projecting over the midline pelvis. Fracture alignment is improved andappears near-anatomic. The sacrum is largely obscured by overlying bowel gas andstool. IMPRESSION Improved alignment after left ischial and acetabular fracture ORIFwithout evidence of complication. Fran Gilliam MD IM DX ORDERABLES * XR Fluoro No Rad <1Hr - OR Use (09/04/2017 12:27 PM EST) Narrative RAD - 09/04/2017 12:27 PM EST This order does not need a radiologist interpretation. ?? Fran Gilliam MD [facility] FLUORO ORDERAB LES Performing Organization Address City/[facility]/ZIP Co de Phone Number [place], [place] * ABORH Recheck Status (09/04/2017 11:15 AM EST) ABORH Type Recheck Completed [facility] Blood specimen (specimen) 09/04/2017 11:15 AM EST 09/04/2017 11:28 AM EST Narrative Resulting Agency Comment Spec In Lab Amy Lance MD BLOOD BANK LAB ORDER LYNDSEY [facility] [place] [address] * Antibody screen (09/04/2017 11:15 AM EST) [facility] Ab Screen Interp Negative [facility] Expires at [id number] on: 09/07/2017 [facility] Blood specimen (specimen) 09/04/2017 11:15 AM EST 09/04/2017 11:28 AM EST Narrative Resulting Agency Comment Spec In Lab Amy Lance MD BLOOD BANK LAB ORDER LYNDSEY [facility] [place] [place] [address] * ABO/Rh Typing (09/04/2017 11:15 AM EST) [facility] ABORH Type O Pos [facility] Blood specimen (specimen) 09/04/2017 11:15 AM EST 09/04/2017 11:28 AM EST Narrative Resulting Agency Comment Spec In Lab Amy Lance MD BLOOD BANK LAB ORDER LYNDSEY [facility] [place] [address] * (ABNORMAL) Differential, Automated (09/04/2017 11:15 AM EST) [facility] Neutrophil % 72.7 % [facility] Neutrophil Absolute 10.24(H) 1.70 - 6.10 x10(3)/mc L [facility] Lymph % 11.3 % [facility] Lymphocytes Abs 1.6 0.9 - 3.2 x10(3)/mc L [facility] Monocyte % 7.5 % [facility] Monocyte Abs 1.1(H) 0.3 - 0.9 x10(3)/mc L [facility] Eos % 7.5 % [facility] Eosinophils Abs 1.1(H) 0.0 - 0.4 x10(3)/[facility] LABORATORY Basophil % 0.3 % [facility] Baso Absolute 0.0 0.0 - 0.1 x10(3)/[facility] LABORATORY Immature Gran % 0.70 % [facility] Comment: Immature granulocytes(IG's)percentage and absolute count will include metamyelocytes, myelocytes, and promyelocytes. Blood smears from CBCs yielding IG's will be scanned manually for concordance. If this scan disagrees with the automated IG or if promyelocytes are noted, a manual differential will be performed. Immature Gran Absolute 0.10(H) 0.00 - 0.04 x10(3)/[facility] LABORATORY Blood specimen (specimen) 09/04/2017 11:15 AM EST 09/04/2017 11:28 AM EST Narrative Resulting Agency Comment Spec In Lab Amy Mandy Lance MD HEMATOLOGY ORDERABLE S [facility] [place] [id number] * (ABNORMAL) Hemogram (09/04/2017 11:15 AM EST) White Blood Cell 14.1(H) 4.0 - 9.5 x10(3)/[facility] LABORATORY Red Blood Cell 3.37(L) 4.58 - 5.54 x10(6)/[facility] LABORATORY Hemoglobin 9.3(L) 13.7 - 16.5 gm/dL [facility] Comment: This result has been called to SHEKHAR OLIVEIRA by Crista Hunter on 09 04 2017 at 1137, and has been read back. Hematocrit 26.7(L) 40.5 - 48.5 % [facility] Comment: This result has been called to SHEKHAR OLIVEIRA by Crista Hunter on 09 04 2017 at 1137, and has been read back. Mean Cell Volume 79.2(L) 82.9 - 93.1 fL [facility] Mean Cell Hemoglobin 27.6 27.5 - 32.1 pg [facility] Mean Cell Hemoglobin Concentration 34.8 32.0 - 35.7 gm/dL [facility] Platelet 193 145 - 357 x10(3)/mc L [facility] RDW Standard Deviation 41.5 36.0 - 45.0 fL [facility] RDW coefficient of variation 14.3(H) 11.4 - 13.8 % [facility] Mean Platelet Volume 10.0 7.6 - 12.9 fL [facility] NRBC% auto 0.0 % [facility] NRBC Absolute 0.000 0.000 - 0.000 x10(3)/mc L [facility] Blood specimen (specimen) 09/04/2017 11:15 AM EST 09/04/2017 11:28 AM EST Narrative Resulting Agency Comment Spec In Lab Amy Lance MD [place] [address] * Prepare RBC (09/04/2017 11:00 AM EST) Dispensed? Yes [facility] Blood specimen (specimen) 09/04/2017 11:00 AM EST 09/04/2017 10:58 AM EST Fran Gilliam MD BLOOD BANK PRODUCT ORDERABLES [facility] [place] [address] * (ABNORMAL) Differential, Automated (09/04/2017 3:58 AM EST) Neutrophil % 75.8 % [facility] Neutrophil Absolute 8.00(H) 1.70 - 6.10 x10(3)/mc L [facility] Lymph % 9.5 % [facility] Lymphocytes Abs 1.0 0.9 - 3.2 x10(3)/ L [facility] Monocyte % 7.7 % [facility] Monocyte Abs 0.8 0.3 - 0.9 x10(3)/[facility] LABORATORY Eos % 5.9 % [facility] Eosinophils Abs 0.6(H) 0.0 - 0.4 x10(3)/[facility] LABORATORY Basophil % 0.4 % [facility] Baso Absolute 0.0 0.0 - 0.1 x10(3)/[facility] LABORATORY Immature Gran % 0.70 % [facility] Comment: Immature granulocytes(IG's)percentage and absolute count will include metamyelocytes, myelocytes, and promyelocytes. Blood smears from CBCs yielding IG's will be scanned manually for concordance. If this scan disagrees with the automated IG or if promyelocytes are noted, a manual differential will be performed. Immature Gran Absolute 0.07(H) 0.00 - 0.04 x10(3)/[facility] LABORATORY Blood specimen (specimen) 09/04/2017 3:58 AM EST 09/04/2017 4:05 AM EST Narrative Resulting Agency Comment Spec In Lab Christopher Dalal MD HEMATOLOGY ORDERABLE S Performing Organization Address City/State/[facility] Co de Phone Number [facility] [address] * (ABNORMAL) Hemogram (09/04/2017 3:58 AM EST) White Blood Cell 10.5(H) 4.0 - 9.5 x10(3)/[facility] LABORATORY Red Blood Cell 4.72 4.58 - 5.54 x10(6)/[facility] LABORATORY Hemoglobin 12.4(L) 13.7 - 16.5 gm/dL [facility] Hematocrit 37.2(L) 40.5 - 48.5 % [facility] Mean Cell Volume 78.8(L) 82.9 - 93.1 fL [facility] Mean Cell Hemoglobin 26.3(L) 27.5 - 32.1 pg [facility] Mean Cell Hemoglobin Concentration 33.3 32.0 - 35.7 gm/dL [facility] Platelet 142(L) 145 - 357 x10(3)/mc L [facility] RDW Standard Deviation 39.5 36.0 - 45.0 [facility] LABORATORY RDW coefficient of variation 13.8 11.4 - 13.8 % [facility] Mean Platelet Volume 9.9 7.6 - 12.9 [facility] LABORATORY NRBC% auto 0.0 % [facility] NRBC Absolute 0.000 0.000 - 0.000 x10(3)/mc L [facility] Blood specimen (specimen) 09/04/2017 3:58 AM EST 09/04/2017 4:05 AM EST Narrative Resulting Agency Comment Spec In Lab Christopher Dalal MD HEMATOLOGY ORDERABLE S [facility] [address] * (ABNORMAL) Basic Metabolic Panel (non-fasting) (09/04/2017 3:58 AM EST) Glucose 118 65 - 199 mg/dL [facility] Comment:Diabetes: >=200 mg/d L plus symptoms Blood Urea Nitrogen 12 10 - 20 mg/dL [facility] Creatinine 0.73(L) 0.80 - 1.50 mg/dL [facility] Sodium 128(L) 135 - 145 mmol/L [facility] Potassium 4.1 3.5 - 5.0 mmol/L [facility] Comment: Please note: ??Patients with WBC >100,000 may have falsely elevated Potassium levels. ??For accurate Potassium quantification in these patients send serum separator tube (gold top) for subsequent determinations. ??Contact the Clinical Chemistry Laboratory if there are any questions. Chloride 95(L) 98 - 107 mmol/L [facility] Carbon Dioxide 22 22 - 31 mmol/L [facility] Anion Gap 11 5 - 15 mmol/L [facility] Calcium 8.0(L) 8.5 - 10.5 mg/dL [facility] Est Glomerular Filtration Rate >60 >=60 [facility] Comment: The reported eGFR should be multiplied by 1.2 for patients. The MDRD is not an appropriate measure of renal function for patients with body mass extremes or in patients with acute kidney failure. http://ilab/DHnkdep http://ilab/DHMCnkf Blood specimen (specimen) 09/04/2017 3:58 AM EST 09/04/2017 4:05 AM EST Narrative Resulting Agency Comment Spec In Lab Fran Gilliam MD CHEMISTRY ORDERABL ES [facility] [place] [address] * (ABNORMAL) Hepatic Function Panel (09/04/2017 3:58 AM EST) Protein, Total 5.9(L) 6.1 - 8.0 gm/dL [facility] Albumin 3.3 3.2 - 5.2 gm/dL [facility] Aspartate Aminotransferase 23 0 - 39 unit/L [facility] Alanine Aminotransferase 31 0 - 55 unit/L [facility] Alkaline Phosphatase 75 40 - 120 unit/L [facility] Bilirubin, Total 0.5 0.2 - 1.3 mg/dL [facility] Bilirubin, Direct 0.1 0.0 - 0.3 mg/dL [facility] Blood specimen (specimen) 09/04/2017 3:58 AM EST 09/04/2017 4:05 AM EST Narrative Resulting Agency Comment Spec In Lab Fran Gilliam MD CHEMISTRY ORDERABL ES Performing Organization Address [facility]/ZIP Co de Phone Number [facility] [address] * (ABNORMAL) Testosterone, total and free (09/04/2017 3:58 AM EST) Testo Total 84(L) 250 - 1100 ng/dL [facility] Comment: For more information on this test, go to http://education.Lavish Skate/faq/ TotalTestosteroneLCMSMS This test was developed and its analytical performance characteristics have been determined by [employer] [place], [place]. It has not been cleared or approved by the U.S. Food and Drug Administration. This assay has been validated pursuant to the CLIA regulations and is used for clinical purposes. Testo Free (NOVEMBER) 11.4(L) 35.0 - 155.0 pg/mL [facility] Comment: This test was developed and its analytical performance characteristics have been determined by [employer] [place], [place]. It has not been cleared or approved by the U.S. Food and Drug Administration. This assay has been validated pursuant to the CLIA regulations and is used for clinical purposes. Test Performed by [facility], [facility] [place], [address] [place] [address] Hilton Mckeon M.D., Ph.D., Director of Laboratories , CLIA [id number] Blood specimen (specimen) 09/04/2017 3:58 AM EST 09/04/2017 9:36 AM EST Narrative Resulting Agency Comment Spec In Lab Christopher Dalal MD LAB SEND OUT ORDERAB LES Performing Organization Address [facility]/ZIP Co de Phone Number [facility] [place] [address] * SCAN DOC: IMPLANTABLE DEVICES (09/04/2017 12:00 AM EST) Narrative 09/04/2017 12:00 AM EST Ordered by an unspecified provider. Scanning Provider MEDIA MGR SCAN EXT O RDR/RSLT * SCAN DOC: SOLVENT RECOVERER (09/04/2017 12:00 AM EST) Anatomical Region Laterality Modality Other Narrative 09/04/2017 12:00 AM EST Ordered by an unspecified provider. Scanning Provider MEDIA MGR SCAN EXT O RDR/RSLT * (ABNORMAL) Urinalysis with reflex Culture (09/03/2017 9:04 PM EST) Glucose, Urine Dipstick Negative Negative mg/dL [facility] Protein, Urine Dipstick Negative Negative mg/dL [facility] Bilirubin, Urine Dipstick Negative Negative mg/dL [facility] Comment: Clinical correlation required for positive Urine Bilirubin results as false positive may occur with some drugs and drug related products. If a false positive is suspected a serum total bilirubin should be considered if clinically indicated. Urobilinogen, Urine Dipstick >=4.0(A) Normal mg/dL [facility] pH, Urn (dipstick) 7.0 5.0 - 8.0 [facility] Blood, Urine Dipstick Negative Negative mg/dL [facility] Ketone, Urine Dipstick Negative Negative mg/dL [facility] Nitrite, Urine Dipstick Negative Negative [facility] Leukocytes, Urine Dipstick Negative Negative mcL [facility] Appearance, Urine Dipstick Clear Clear [facility] Specific [place] Urine Automated 1.020 1.002 - 1.030 [facility] Color, Urine Dipstick Yellow Yellow [facility] Reflex to Culture No [facility] Urine specimen obtained via indwelling urinary catheter (specimen) 09/03/2017 9:04 PM EST 09/03/2017 9:19 PM EST Narrative Resulting Agency Comment Spec In Lab Fran Gilliam MD URINE ORDERABLES [facility] [place] [address] * Rapid Influenza A/B PCR (09/03/2017 7:59 PM EST) Influenza A PCR Not Detected Not Detected [facility] Influenza B PCR Not Detected Not Detected [facility] Resp PCR Source ROOTER OPERATOR Swab [facility] Nasopharyngeal swab (specimen) 09/03/2017 7:59 PM EST 09/03/2017 8:12 PM EST Narrative Resulting Agency Comment Spec In Lab Fran Gilliam MD MICROBIOLOGY - GEN ERAL ORDERABLES Performing Organization Address [facility] Co de Phone Number [facility] [place] [address] * Blood culture (09/03/2017 6:47 PM EST) Pathologist [facility] Blood Culture No growth at 5 days. [facility] Blood specimen (specimen) 09/03/2017 6:47 PM EST 09/03/2017 7:08 PM EST Comment:R HAND Narrative Resulting Agency Comment Spec In Lab Fran Gilliam MD MICROBIOLOGY - BLO OD ORDERABLES Performing Organization Address [facility] Co de Phone Number [facility] [place] [address] * (ABNORMAL) Lactate, whole blood, send to lab (Leb/CGP) (09/03/2017 5:56 PM EST) Pathologist [facility] Lactate WB 3.7(H) 0.5 - 2.2 mmol/L [facility] Blood specimen (specimen) 09/03/2017 5:56 PM EST 09/03/2017 6:03 PM EST Narrative Resulting Agency Comment Spec In Lab Fran Gilliam MD CHEMISTRY ORDERABL ES Performing Organization Address City/[facility] Co de Phone Number [facility] [place] [address] * Blood culture (09/03/2017 5:56 PM EST) Blood Culture No growth at 5 days. [facility] Blood specimen (specimen) 09/03/2017 5:56 PM EST 09/03/2017 6:28 PM EST Narrative Resulting Agency Comment Spec In Lab Fran Gilliam MD MICROBIOLOGY - BLO OD ORDERABLES [facility] [place] [address] * CT Pelvis MSK (Bones Joints Muscles)WO [...] at 09/03/2017 5:51 PM Fran Gilliam MD IMG CT ORDERABLES * (ABNORMAL) Zonisamide level (09/03/2017 10:20 AM EST) Zonisamide Lvl (NOVEMBER) 3.7(L) 10 - 40 mcg/mL [facility] Comment: ADDITIONAL INFORMATION This test was developed and its performance characteristics determined by [facility] in a manner consistent with CLIA requirements. This test has not been cleared or approved by the U.S. Food and Drug Administration. Test Performed by: [facility] [address] [place] [address] Blood specimen (specimen) 09/03/2017 10:20 AM EST 09/03/2017 12:26 PM EST Narrative Resulting Agency Comment Spec In Lab Fran Gilliam MD LAB SEND OUT ORDER LYNDSEY [facility] [place] [address] * XR Chest PA or AP 1 [...] Free T4 1.45 0.93 - 1.70 ng/dL [facility] Blood specimen (specimen) Venous Draw / Unknown 09/03/2017 6:22 AM EST 09/03/2017 6:35 AM EST Narrative Resulting Agency Comment Spec In Lab Fran Gilliam MD CHEMISTRY ORDERABL ES Performing Organization Address [facility]/[place] [address] * (ABNORMAL) TSH (09/03/2017 6:22 AM EST) Thyroid Stimulating Hormone 0.01(L) 0.27 - 4.20 mlU/ML [facility] Blood specimen (specimen) Venous Draw / Unknown 09/03/2017 6:22 AM EST 09/03/2017 6:35 AM EST Narrative Resulting Agency Comment Spec In Lab Fran Gilliam MD CHEMISTRY ORDERABL ES [facility] [place] [address] * Basic Metabolic Panel (non-fasting) (09/03/2017 6:22 AM EST) Glucose 95 65 - 199 mg/dL [facility] Comment:Diabetes: >=200 mg/d L plus symptoms Blood Urea Nitrogen 10 10 - 20 mg/dL [facility] Creatinine 0.99 0.80 - 1.50 mg/dL [facility] Sodium 136 135 - 145 mmol/L [facility] Potassium 4.2 3.5 - 5.0 mmol/L [facility] Comment: Please note: ??Patients with WBC >100,000 may have falsely elevated Potassium levels. ??For accurate Potassium quantification in these patients send serum separator tube (gold top) for subsequent determinations. ??Contact the Clinical Chemistry Laboratory if there are any questions. Chloride 99 98 - 107 mmol/L [facility] Carbon Dioxide 26 22 - 31 mmol/L [facility] Anion Gap 11 5 - 15 mmol/L [facility] Calcium 8.8 8.5 - 10.5 mg/dL [facility] Est Glomerular Filtration Rate >60 >=60 [facility] Comment: The reported eGFR should be multiplied by 1.2 for patients. The MDRD is not an appropriate measure of renal function for patients with body mass extremes or in patients with acute kidney failure. http://LinkoTec.Swyft/DHnkdep [email or web address]://LinkoTec.Swyft/DHMCnkf Blood specimen (specimen) 09/03/2017 6:22 AM EST 09/03/2017 6:29 AM EST Narrative Resulting Agency Comment Spec In Lab Christopher Dalal MD CHEMISTRY ORDERABLES [facility] [place] [address] * (ABNORMAL) Basic Metabolic Panel (non-fasting) (09/03/2017 1:54 AM EST) Glucose 90 65 - 199 mg/dL [facility] Comment:Diabetes: >=200 mg/d L plus symptoms Blood Urea Nitrogen 10 10 - 20 mg/dL [facility] Creatinine 1.01 0.80 - 1.50 mg/dL [facility] Sodium 139 135 - 145 mmol/L [facility] Potassium 3.7 3.5 - 5.0 mmol/L [facility] Comment: Please note: ??Patients with WBC >100,000 may have falsely elevated Potassium levels. ??For accurate Potassium quantification in these patients send serum separator tube (gold top) for subsequent determinations. ??Contact the Clinical Chemistry Laboratory if there are any questions. Chloride 102 98 - 107 mmol/L [facility] Carbon Dioxide 25 22 - 31 mmol/L [facility] Anion Gap 12 5 - 15 mmol/L [facility] Calcium 8.1(L) 8.5 - 10.5 mg/dL [facility] Est Glomerular Filtration Rate >60 >=60 [facility] Comment: The reported eGFR should be multiplied by 1.2 for patients. The MDRD is not an appropriate measure of renal function for patients with body mass extremes or in patients with acute kidney failure. http://LinkoTec.Swyft/DHnkdep http://ilab/DHMCnkf Blood specimen (specimen) 09/03/2017 1:54 AM EST 09/03/2017 2:02 AM EST Narrative Resulting Agency Comment Spec In Lab Christopher Dalal MD CHEMISTRY ORDERABLES [facility] [place] [address] * ABORH Recheck Status (09/03/2017 12:54 AM EST) ABORH Recheck Order Order Placed [facility] ABORH Type Recheck Complete [facility] Blood specimen (specimen) 09/03/2017 12:54 AM EST 09/03/2017 12:54 AM EST Narrative Resulting Agency Comment Spec In Lab Christopher Dalal MD BLOOD BANK LAB ORDER LYNDSEY Performing Organization Address City/[facility]/ZIP Co de Phone Number [facility] [place] [address] * (ABNORMAL) Differential, Automated (09/03/2017 12:54 AM EST) Neutrophil % 72.4 % [facility] Neutrophil Absolute 6.59(H) 1.70 - 6.10 x10(3)/mc L [facility] Lymph % 11.7 % [facility] Lymphocytes Abs 1.1 0.9 - 3.2 x10(3)/ L [facility] Monocyte % 8.9 % [facility] Monocyte Abs 0.8 0.3 - 0.9 x10(3)/ L [facility] Eos % 5.3 % [facility] Eosinophils Abs 0.5(H) 0.0 - 0.4 x10(3)/ L [facility] Basophil % 0.6 % [facility] Baso Absolute 0.0 0.0 - 0.1 x10(3)/ L [facility] Immature Gran % 1.10 % [facility] Comment: Immature granulocytes(IG's)percentage and absolute count will include metamyelocytes, myelocytes, and promyelocytes. Blood smears from CBCs yielding IG's will be scanned manually for concordance. If this scan disagrees with the automated IG or if promyelocytes are noted, a manual differential will be performed. Immature Gran Absolute 0.10(H) 0.00 - 0.04 x10(3)/ L [facility] Blood specimen (specimen) 09/03/2017 12:54 AM EST 09/03/2017 12:58 AM EST Narrative Resulting Agency Comment Spec In Lab Christopher Dalal MD HEMATOLOGY ORDERABLE S Performing Organization Address City/[facility]/ZIP Co de Phone Number [facility] [place] [address] * (ABNORMAL) Hemogram (09/03/2017 12:54 AM EST) [facility] White Blood Cell 9.1 4.0 - 9.5 x10(3)/ L [facility] Red Blood Cell 5.52 4.58 - 5.54 x10(6)/ L [facility] Hemoglobin 14.8 13.7 - 16.5 gm/dL [facility] Hematocrit 43.4 40.5 - 48.5 % [facility] Mean Cell Volume 78.6(L) 82.9 - 93.1 fL [facility] Mean Cell Hemoglobin 26.8(L) 27.5 - 32.1 pg [facility] Mean Cell Hemoglobin Concentration 34.1 32.0 - 35.7 gm/dL [facility] Platelet 156 145 - 357 x10(3)/ L [facility] RDW Standard Deviation 41.1 36.0 - 45.0 [facility] RDW coefficient of variation 14.8(H) 11.4 - 13.8 % [facility] Mean Platelet Volume 11.6 7.6 - 12.9 [facility] NRBC% auto 0.0 % [facility] NRBC Absolute 0.000 0.000 - 0.000 x10(3)/[facility]ORATORY Blood specimen (specimen) 09/03/2017 12:54 AM EST 09/03/2017 12:58 AM EST Narrative Resulting Agency Comment Spec In Lab Christopher Dalal MD HEMATOLOGY ORDERABLE S [facility] [place] [address] * Antibody screen (09/03/2017 12:54 AM EST) [facility] Ab Screen Interp Negative [facility] Expires at [id number] on: 09/06/2017 [facility] Blood specimen (specimen) 09/03/2017 12:54 AM EST 09/03/2017 12:54 AM EST Narrative Resulting Agency Comment Spec In Lab Christopher Dalal MD BLOOD BANK LAB ORDER LYNDSEY Performing Organization Address City/[facility]/ZIP Co de Phone Number [facility] [place] [address] * ABO/Rh Typing (09/03/2017 12:54 AM EST) ABORH Type O Pos [facility] Blood specimen (specimen) 09/03/2017 12:54 AM EST 09/03/2017 12:54 AM EST Narrative Resulting Agency Comment Spec In Lab Christopher Dalal MD BLOOD BANK LAB ORDER LYNDSEY Performing Organization Address [facility] Co de Phone Number [facility] [address] * APTT (09/03/2017 12:54 AM EST) Partial Thromboplastin Time 26 25 - 35 sec [facility] Comment: The recommended therapeutic [place], unfractionated [place] [facility] [place] 80 ? 114 seconds. The use of the anti-Xa (heparin) level rather than the PTT is recommended for monitoring anticoagulation intensity in critically ill patients receiving unfractionated heparin by continuous IV infusion. Blood specimen (specimen) 09/03/2017 12:54 AM EST 09/03/2017 12:58 AM EST Narrative Resulting Agency Comment Spec In Lab Christopher Dalal MD HEMATOLOGY ORDERABLE S Performing Organization Address [facility] Co de Phone Number [facility] [place] [address] * Prothrombin Time (09/03/2017 12:54 AM EST) Prothrombin Time 13.6 11.8 - 14.0 sec [facility] International Normalization Ratio 1.1 0.9 - 1.1 [facility] Comment: An INR <2.0 indicates [...] Lab Christopher Dalal MD HEMATOLOGY ORDERABLE S [facility] [place] [address] * Basic Metabolic Panel (non-fasting) (09/03/2017 12:54 AM EST) Glucose 84 65 - 199 mg/dL [facility] Comment:Diabetes: >=200 mg/d L plus symptoms Blood Urea Nitrogen 11 10 - 20 mg/dL [facility] Creatinine 0.97 0.80 - 1.50 mg/dL [facility] Sodium Not Perf 135 - 145 mmol/L [facility] Comment: Specimen hemolyzed. Called by: [facility], Read back by: Diana Reese, Date/Time:09/03/17 01:32. Potassium Not Perf 3.5 - 5.0 mmol/L [facility] Comment: Specimen hemolyzed. Called by: [facility], Read back by: Diana Reese, Date/Time:09/03/17 01:32. Please note: ??Patients with WBC >100,000 may have falsely elevated Potassium levels. ??For accurate Potassium quantification in these patients send serum separator tube (gold top) for subsequent determinations. ??Contact the Clinical Chemistry Laboratory if there are any questions. Chloride Not Perf 98 - 107 mmol/L [facility] Comment: Specimen hemolyzed. Called by: [facility], Read back by: Diana Reese, Date/Time:09/03/17 01:32. Carbon Dioxide Not Perf 22 - 31 mmol/L [facility] Comment: Specimen hemolyzed. Called by: [facility], Read back by: Diana Reese, Date/Time:09/03/17 01:32. Anion Gap Not Perf 5 - 15 mmol/L [facility] Comment: Specimen hemolyzed. Called by: [facility], Read back by: Diana Reese, Date/Time:09/03/17 01:32. Calcium Not Perf 8.5 - 10.5 [facility] Comment: Specimen hemolyzed. Called by: [facility], Read back by: Diana Reese, Date/Time:09/03/17 01:32. Est Glomerular Filtration Rate >60 >=60 [facility] Comment: The reported eGFR should be multiplied by 1.2 for patients. The MDRD is not an appropriate measure of renal function for patients with body mass extremes or in patients with acute kidney failure. http://ilab/DHnkdep http://ilab/DHMCnkf Blood specimen (specimen) 09/03/2017 12:54 AM EST 09/03/2017 12:58 AM EST Narrative Resulting Agency Comment Spec In Lab Christopher Dalal MD CHEMISTRY ORDERABLES [facility] [place] [address] * XR Knee 1-2 Views Left (Generic) [...] Traction device is present. Beverley Bojorquez MD [facility] [place] ORDERABLES * XR Pelvis Judet or [...] appreciable change in alignment. Beverley Bojorquez MD [facility] [place] DX ORDERABLES * XR Knee 1-2 Views [...] on 03/01/18 at 1545, Until Discontinued, Routine Given [...] Oral, EVERY 6 HOURS PRN, Starting on Fri10/23/17 at 1934, Until Jo Ann 03/12/18 at [...] Given 03/09/2018 8:27 PM EDT 50 mg vancomycin (VANCOCIN) injection ONCE PRN, Starting on Fri09/04/17 at 1217, Until Fri09/05/17 at 1441, Intra-Operative (Intra-Procedure), Routine Given 09/04/2017 12:17 PM EST 2 g 19- Surgical Site zonisamide (ZONEGRAN) capsule 200 mg 200 mg, [...] on Fri09/07/17 at 0700, Until Discontinued, Routine 0647 (Given - Provider: Mady Foss RN) 0611 (Given - Provider: Latrice Hoff RN) 0627 (Given - Provider: Latrice Hoff RN) levothyroxine (SYNTHROID) tablet 225 mcg 225 mcg, Oral, EVERY MORNING, First dose (after last modification) on Fri01/13/18 at 0600, Until Discontinued, Routine 0646 (Given - Provider: Mady Foss RN) 0611 (Given - Provider: Latrice Hoff RN) 0620 (Given - Provider: Latrice Hoff RN) melatonin [...] Patient/family refused) 804 (Given - Provider: Mady Recio, HEATHER) metoprolol succinate (TOPROL-XL) XL tablet 75 mg 75 mg, Oral, DAILY, First dose (after last modification) on Fri03/02/18 at 0900, Until Discontinued, DO NOT CRUSH OR OPEN, Routine 935 (Given - Provider: Vandana Jean Baptiste RN) 903 (Given - Provider: Vandana Jean Baptiste RN) 802 (Given - Provider: Mady Recio RN) pantoprazole (PROTONIX) tablet 40 mg 40 mg, Oral, EVERY MORNING BEFORE BREAKFAST, First dose on Fri09/03/17 at 0730, Until Discontinued, DO NOT CRUSH OR OPEN 0647 (Given - Provider: Mady Foss RN) 903 (Given - Provider: Vandana Jean Baptiste RN) 803 (Given - Provider: Mady Recio RN) QUEtiapine (SEROquel) tablet 250 mg 250 mg, Oral, NIGHTLY, First dose (after last modification) on Fri11/30/17 at 2000, Until Discontinued, Routine 2047 (Given - Provider: Latrice Hoff RN) 2024 (Given - Provider: Latrice Hoff, HEATHER) senna-docusate (PERICOLACE) 8.6-50 mg per tablet 2 tablet 2 tablet, Oral, 2 TIMES DAILY, First dose (after last modification) on Fri11/12/17 at 2100, Until Discontinued, Hold for loose stools please! Thanks!, Routine 936 (Given - Provider: Vandana Jean Baptiste RN)2050 (Given - Provider: Latrice Hoff RN) 902 (Given - Provider: Vandana Jean Baptiste RN)2026 (Given - Provider: Latrice Hoff, HEATHER) 802 (Given - Provider: Mady Recio, HEATHER) testosterone [...] on Fri09/03/17 at 2100, Until Discontinued, Routine 1734 (Given - Provider: Vandana Jean Baptiste RN) 1722 (Given - Provider: Vandana Jean Baptiste RN) PRN Medication Order 03/10/2018 03/11/2018 03/12/2018 bisacodyl (DULCOLAX) suppository 10 mg 10 mg, Rectal, DAILY PRN, Starting on Fri09/22/17 at 0904, Until Jo Ann 03/12/18 at 1526, Constipation, Use if senna-docusate or miralax ineffective, or per patient request., Routine ibuprofen (ADVIL;MOTRIN) tablet 400 mg 400 mg, Oral, EVERY 6 HOURS PRN, Starting on Fri12/21/17 at 0843, Until Jo Ann 03/12/18 at 1526, Pain, Administer orally with milk or food to minimize GI irritation. Maximum dose of 3200 mg from all sources in 24 hours, Routine 911 (Given - Provider: Mady Recio RN) naphazoline-pheniramin [...] Routine 1446 (Given - Provider: Vandana Jean Baptiste, RN)2235 (Given - Provider: Latrice Hoff, RN) 1241 (Given - Provider: Vandana Jean Baptiste, RN)2035 (Given - Provider: Latrice Hoff RN) 1015 (Given - Provider: Mady Recio, RN)1235 (Given - Provider: Mady Recio, HEATHER - Comment: per NSG communication) simethicone (MYLICON) chewable tablet 40 mg 40 mg, Oral, EVERY 6 HOURS PRN, Starting on Jo Ann 10/23/17 at 1934, Until Jo Ann 03/12/18 at 1526, Cramping, Routine documented in this encounter Care Teams Field Services Analyst Relationship Specialty Start Date End Date Lc Venegas PA [address] [place] [address] PCP - General General Internal Medicine 09/03/17 documented as of this encounter
--- OUTSIDE RECORDS SUMMARY | 2024-07-30 03:18 | XMS_ITS | Encounter Summary ---
Author Organization [facility] Address [facility] [place] [address] Care Team Providers Care Planning Division Superintendent Name Role Phone Corin Skinner MD Primary Care Provider [phone] Encounter Details Date Type Department Care Team (Latest Contact Info) Description 09/02/2017 - 09/02/2017 12:04 AM [facility] Hospital Encounter Radiology Library [place] [address] Neo Gar MD Discharge Disposition: Home Social [...] Pelvis (09/02/2017 12:00 AM EST) Narrative [facility] - 09/02/2017 6:27 PM EST This exam is for storage only and is auto-finalizing. Neo Gar MD IMG FILM LIBRARY OR DERABLES [place], [place] documented in this encounter Visit Diagnoses Not on filedocumented in this encounter Care Teams Planning Division Superintendent Relationship Specialty Start Date End Date Corin Skinner MD PCP - General 05/29/10 09/02/17 documented as of this encounter
--- OUTSIDE RECORDS SUMMARY | 2024-07-30 03:18 | XMS_ITS | Encounter Summary ---
Author Organization [facility] Address [facility] [place] [address] Care Team Providers Care Poultry Packer Name Role Phone Corin Skinner MD Primary Care Provider [phone] Encounter Details Date Type Department Care Team (Latest Contact Info) Description 09/02/2017 12:15 AM EST - 09/02/2017 12:19 AM EST Hospital Encounter Radiology Library at [facility] [place] [address] Neo Gar MD Discharge Disposition: Home Social [...] MD IMG FILM LIBRARY OR DERABLES [place], [place] documented in this encounter Visit Diagnoses Not on filedocumented in this encounter Care Teams Poultry Packer Relationship Specialty Start Date End Date Corin Skinner MD PCP - General 05/29/10 09/02/17 documented as of this encounter
--- OUTSIDE RECORDS SUMMARY | 2024-07-30 03:18 | XMS_ITS | Encounter Summary ---
Author Organization [facility] [place] [address] Care Team Providers Care Mission Planner Name Role Phone Lc Venegas Primary Care Provider [phone] Encounter Details Date Type Department Care Team (Late st Contact Info) Description 09/03/2017 Orders [place] [address] Tobias Sotomayor MD [facility] [place] [address] Social History Tobacco Use Types Packs/Day Years [...] on filedocumented in this encounter Care Teams Mission Planner Relationship Specialty Start Date End Date Lc Venegas PA [address] [place] [address] PCP - General General Internal Medicine 09/03/17 documented as of this encounter
[2024-07-30 15:21] LABS: Sodium 133 mmol/L (136-145)
== END 2024-07-30 02:20 | disposition home or self-care (01) ==
LOC: LBO 02:19
PROVIDERS: PCP Student in an Organized Health Care Education/Training Program; Visit Provider Internal Medicine Endocrinology, Diabetes & Metabolism
DX: E23.2 Diabetes insipidus (principal); E23.0 Hypopituitarism
CPT/HCPCS: 36415; 84295

== ENCOUNTER 2024-08-03 13:42 | Outpatient (CLI) | payer MEDICAID, SELFPAY ==
[2024-08-03 13:38] LABS: Sodium 140 mmol/L (136-145)
--- OUTSIDE RECORDS SUMMARY | 2024-08-03 13:46 | XMS_ITS | Continuity of Care Document ---
Author Organization [place] - [facility] Address [address] [place] [address] Care Team Providers Care Buffing Wheel Former Automatic Name Role Phone [facility] Psychiatrist Assessment No assessment recorded. Plan of Treatment Reminders Order Date Submit Date Provider Last Modified By Organization Details Last Modified Time Details Appointments None recorded. Lab None recorded. Referral wound care referral [...] see him back in clinic. 2024 025 [facility], [address] [place] [address] [address], [place], [address], 5 08:45:22 Procedures None recorded. Surgeries None recorded. Imaging None recorded. Medication Orders cephalexin 500 mg capsule 2024 025 [facility]- [facility] [place], [address], 5 10:28:11 Patient TargetsNo targets recorded. Patient Instructions Encounter Date Encounter Id Patient Instructions Last Modified By Organization Details Last Modified Time 07/15/2024 [id number] I have referred Miguel Angel to the [...] you have other concerns please notify us. [email or web address] Not available 07/15/2024 10:30:34 Reason for Referral [...] t Patigato t Name: Miguel Angel Burgos Judy Unit #: [id number] Loc: ER Orderi ng Provid er: Diego Winchester M.D. Accoun t #: [id number] Status : [facility] Primar y [facility] er: Jose More Date of Exam: 02/27 [...] report in error, please notify us immedi astrid at [phone] and return the origin al report to us at the addres s above. Thank- you. INTERFACE [address] , [place], [address] 06/14/2024 09:01:48 Result Notes None recorded. 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 2016 Problem Code: H47.20; Problem Code Type: ICD-10; Not Available [facility] 3 04:21:52 Gastriti s 2417946 Active 2016 Problem Code: K29.70; Problem Code Type: ICD-10; Not Available [facility] 3 04:21:52 Urinary incontin ence 683205273 Active 2016 Problem Code: R32; Problem Code Type: ICD-10; Not Available [facility] 3 04:21:52 Senile osteopor osis 42282800 Active 201602/22/20 21 - Comments only - [...] M81.0; Problem Code Type: ICD-10; Not Available [facility] 3 04:21:52 Pure hypergly ceridemi a 112575531 Active 201602/27/20 22 - Comments only - Ren Vaz MD - tolerati ng statin. However with elevated LFTs could consider cutting statin dose to see if helps LFTs. Problem Code: E78.1; Problem Code Type: ICD-10; Not Available [facility] 3 04:21:53 History of benign neoplasm of brain 721814625 Active 2016 Problem Code: Z86.011; Problem Code Type: ICD-10; Not Available [facility] 3 04:21:53 Insomnia 786876891 Active 201612/09/19 19 - Deterior jimd - Subha Colon [employer] SUPERVISOR - Currentl y on trazodon e, not effectiv e. See above. 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 Cycloben zaprine no longer effectiv e. Will change to baclofen 10mg TID. staffing branch manager will call in 1-2 weeks to report effectiv eness. Pain may be influenc ing increase d agitatio n and poor sleep. Problem Code: M24.50; Problem Code Type: ICD-10; Not Available [facility] 3 04:21:53 Amnesia 00738753 Active 2016 Problem Code: R41.3; Problem Code Type: ICD-10; Not Available [facility] 3 04:21:53 Hemipleg ia 16535384 Active 201602/22/20 21 - Comments only - Ren Vaz MD - Encourag ing increase in activty. I agree with PT. Problem Code: G81.90; Problem Code Type: ICD-10; Not Available [facility] 3 04:21:54 Red blood cell finding 771801865 Active 2017 Problem Code: R71.8; Problem Code Type: ICD-10; Not Available [facility] 3 04:21:54 Retentio n of urine 885811328 Active 201805/18/20 19 - Comments only - Subha Marieuk SANTANA - Suscepti ble to UTIs. They will return urine sample for testing. Problem Code: R33.9; Problem Code Type: ICD-10; Not Available [facility] 3 04:21:54 Restless ness and agitatio n 536022439 Active 2018 Problem Code: R45.1; Problem Code Type: ICD-10; Not Available [facility] 3 04:21:54 Seizure 06515164 Active 2018 Problem Code: R56.9; Problem Code Type: ICD-10; Not Available [facility] 3 04:21:54 Dyspnea 648440952 Completed 201806/01/2019 Problem Code: R06.02; Problem Code Type: ICD-10; Not Available [facility] 3 04:21:54 Acute upper respirat ory infectio n 10999680 Completed 201806/01/2019 05/18/20 19 - Comments only - Subha Darlene SANTANA - With low-grad e fever, producti ve cough, wheezing . Pt is quite suscepti ble to both respirat ory and urinary tract infectio ns. Will start doxycycl ine to cover for possible pneumoni a. Advised to increase use of nebulize r to TID. Problem Code: J06.9; Problem Code Type: ICD-10; Not Available [facility] 3 04:21:55 Steatosi s of liver 831432486 Active 201903/03/20 23 - Comments only - Ren Vaz MD - Improved last year with weight loss. REcheck CBC/CMP with labs Problem Code: K76.0; Problem Code Type: ICD-10; Not Available [facility] 3 04:21:55 Adult health examinat ion [...] Z00.00; Problem Code Type: ICD-10; Not Available [facility] 3 04:21:55 Bradycar hossein 97651105 Completed 201909/01/2019 08/25/19 20 - Comments only - Ren Vaz MD - Resolved after stopping metoprol ol. BP still okay, no hard indicati on for metoprol ol, so continue off this medicati on. Problem Code: R00.1; Problem Code Type: ICD-10; Not Available [facility] 3 04:21:55 Urticari a 106779827 Active 201908/14/19 21 - Comments only - Ren Vaz MD - irmpoved . continue higher dose H2 gui for now. Problem Code: L50.9; Problem Code Type: ICD-10; Not Available [facility] 3 04:21:55 Localize d eruption of skin 186356490 Completed 201904/26/2020 04/05/20 20 - Comments only - Ricarda Sanchez DETECTIVE AND INTELLIGENCE ANALYST - Unclear etiology : possibly contact urticari [...] R21; Problem Code Type: ICD-10; Not Available [facility] 3 04:21:56 Anemia 172725833 Active 202008/20/19 22 - Comments only - Ren Vaz MD - This has been a stable chronic issue. We discusse d I iron stores actually normal, low TIBC suggests chronic disease cause. Continue to follow. Problem Code: D64.9; Problem Code Type: ICD-10; Not Available [facility] 3 04:21:56 Hypo-osm olality and or hyponatr emia 529098595 Active 202002/22/20 21 - Comments only - Ren Vaz MD - Doing well on fluid restrict ion, continue . Problem Code: E87.1; Problem Code Type: ICD-10; Not Available [facility] 3 04:21:56 Obesity 304077810 Active 2020 Problem Code: E66.9; Problem Code Type: ICD-10; Not Available [facility] 3 04:21:56 Furuncle of left axilla 14024906322 606355 Active 202003/14/20 21 - Comments only - [...] L02.422; Problem Code Type: ICD-10; Not Available [facility] 3 04:21:56 Trichoti jensmania 23217298 Active 202102/27/20 22 - Comments only - Ren Vaz MD - Discusse d skin care, defer medicati on adjustme nts to psych Problem Code: F63.3; Problem Code Type: ICD-10; Not Available [facility] 3 04:21:56 Diabetes insipidu s 60806764 Active 201605/24/20 19 - Comments only - Subha Colon APRN - Will recheck sodium level. Problem Code: E23.2; Problem Code Type: ICD-10; Not Available [facility] 3 04:21:57 Hypopitu itarism 28548957 Active 2016 Problem Code: E23.0; Problem Code Type: ICD-10; Not Available [facility] 3 04:21:57 Hypothyr oidism 33916769 Active 201602/22/20 21 - Comments only - Ren Vaz MD - FT4 at goal, continue current supplume ntation Problem Code: E03.8; Problem Code Type: ICD-10; Not Available [facility] 3 04:21:57 History and physical examinat ion, administ rative Completed 201807/09/2019 Problem Code: Z02.89; Problem Code Type: ICD-10; Not Available [facility] 3 04:21:58 Disorder of eye 878863365 Completed 201804/05/2019 Problem Code: H44.89; Problem Code Type: ICD-10; Not Available [facility] 3 04:21:59 Pain of left knee joint 64057396934 4107 Completed 201707/09/2019 Problem Code: M25.562; Problem Code Type: ICD-10; Not Available [facility] 3 04:21:59 Bleeding 596605852 Completed 202002/21/2021 Problem Code: R58; Problem Code Type: ICD-10; Not Available [facility] 3 04:21:59 Fever 581158433 Completed 201804/05/2019 Problem Code: R50.9; Problem Code Type: ICD-10; Not Available [facility] 3 04:21:59 Family history of diabetes mellitus 187508923 Completed 201607/09/2019 Problem Code: Z83.3; Problem Code Type: ICD-10; Not Available [facility] 3 04:22:00 Fever 918735061 Completed 201805/24/2019 Problem Code: R50.9; Problem Code Type: ICD-10; Not Available [facility] 3 04:22:00 Gastroes ophageal reflux disease without esophagi tis 965616809 Completed 201604/02/2023 Problem Code: K21.9; Problem Code Type: ICD-10; Not Available [facility] 3 04:22:00 Wheezing 72205471 Completed 201709/18/2018 Problem Code: R06.2; Problem Code Type: ICD-10; Not Available [facility] 3 04:22:00 High enzyme level in serum 843256626 Completed 201904/02/2023 02/27/20 22 - Comments only [...] Code Type: ICD-10; Not Available [facility] 3 04:22:01 Body mass index 30+ - obesity 491907059 Completed 202004/02/2023 Problem Code: Z68.34; Problem Code Type: ICD-10; Not Available [facility] 3 04:22:01 Disorder of intestin e 21825973 Completed 202008/14/2020 Problem Code: K63.9; Problem Code Type: ICD-10; Not Available [facility] 3 04:22:01 Screenin g for disorder Completed 201809/18/2018 Problem Code: Z13.9; Problem Code Type: ICD-10; Not Available [facility] 3 04:22:01 Spasm 07048039 Completed 201704/02/2023 08/25/19 20 - Comments only - Ren Vaz MD - Ongoing problem since CVA. Has neuro consult in october to consiide botox. For now try higher dose lorazepa m along with baclofen . Problem Code: R25.2; Problem Code Type: ICD-10; Not Available [facility] 3 04:22:02 Pain of right knee joint 65961972989 4100 Completed 201704/30/2018 Problem Code: M25.561; Problem Code Type: ICD-10; Not Available [facility] 3 04:22:02 Cough 66475803 Completed 201709/08/2019 Problem Code: R05; Problem Code Type: ICD-10; Not Available [facility] 3 04:22:02 Iron deficien cy anemia 28196050 Completed 201704/02/2023 Problem Code: D50.8; Problem Code Type: ICD-10; NAKIA SANTOS [address], [place], [address] , [facility]. 4 09:14:59 Counseli odalis Completed 201812/08/2018 Problem Code: Z71.89; Problem Code Type: ICD-10; Not Available [facility] 3 04:22:03 Disorder of tooth developm ent 159325390 Completed 201808/14/2020 Problem Code: K00.9; Problem Code Type: ICD-10; Not Available [facility] 3 04:22:03 Hypocalc emia 9430282 Completed 201910/25/2019 Problem Code: E83.51; Problem Code Type: ICD-10; Not Available [facility] 3 04:22:03 Hyperosm olality and or hypernat remia 004936976 Completed 201908/14/2020 Problem Code: E87.0; Problem Code Type: ICD-10; Not Available [facility] 3 04:22:04 Testicul ar hypofunc tion 816306074 Completed 201604/02/2023 Problem Code: E29.1; Problem Code Type: ICD-10; Not Available [facility] 3 04:22:04 Seasonal allergic rhinitis 182971709 Completed 201904/02/2023 10/25/19 20 - Comments only - Ren Vaz MD - try H1 block Problem Code: J30.2; Problem Code Type: ICD-10; Not Available [facility] 3 04:22:05 Wheezing 28987133 Completed 201805/24/2019 Problem Code: R06.2; Problem Code Type: ICD-10; Not Available [facility] 3 04:22:05 Seizure 74936879 Completed 201607/09/2019 Problem Code: R56.9; Problem Code Type: ICD-10; Not Available [facility] 3 04:22:05 Chronic excoriat ion of skin 383143413 Active [address], [place], [address] , [facility]. 4 09:12:56 Non-alco holic fatty liver disease Active [address], [place], [address] , [facility]. 4 09:14:30 Iron deficien cy anemia 47424715 Active 2023 Problem Code: D50.8; Problem Code Type: ICD-10; NAKIA SANTOS [address], [facility] [address] , [facility] 4 09:14:59 Pruritic disorder 916392036 Active 2023 [address], [facility] [address] , [facility] 4 09:21:10 Seizure disorder 506804421 Active 2023 [address], [facility] [address] , [facility] 4 10:59:32 Finding of frequenc y of urinatio n 132487451 Active 2023 [address]OS [address], [facility] [address] , [facility] 11:23:00 Notes:*Problem Name: Blindne ss - both eyes *Problem Status: active *Comments: *Problem Code: H54.0 *Problem Code Type: ICD-10 *Note Date: 11/11/2016 Problem Notes None recorded. Medical Equipment None Reported. Allergies Allergen ID Allergen Name Allergen Category Reaction Reaction Severity Criticality Documentation Date Start Date Code Code System Note Provider Name and Address Organization Details Recorded Time 42490 Lopid medicatio n Not available Not available Not available 05/04/2024 9 RxNorm MALOU Martinez, [facility] 10:58:41 Medications Name Sig Start Date Stop [...] 1 tablet by mouth twice a day 08/30/ 2021 09/06 /2021 completed Not Available Not Available Not Available [...] Not Available Not Available Not Avai alexandr Vitals Date Recorded Body height Body mass index (BMI) Body weight Body temperature Oxygen saturation Oxygen saturation in Arterial blood by Pulse oximetry Heart rate Systolic blood pressure Diastolic blood pressure Provider Name and Address Organization Details Last Updated DateTime 5 167.157 4 cm 31.5 kg/m2 54503.6 4 g 97.5 [degF] 100 % 100 % 96 /min 106 mm[Hg] 68 mm[Hg] KRISTYN SINGH MA [facility], [facility]. 5 10:00:19 Social History Question Answer Notes LastModified by Organizat ion Details LastModified Time Tobacco Smoking Status Never Smoker Ashley England MA null, [facility] 05/04/2024 11:00:43 What Was The Date Of Your Most Recent Tobacco Screening? 05/04/2024 [email or web address] Information not available 05/04/2024 Has Tobacco Cessation Counseling Been Provided? Yes [email or web address] Information not available 05/04/2024 On What Date Was Tobacco Cessation Counseling Provided? 05/04/2024 [email or web address] Information not available 05/04/2024 Sex: Male Functional Status None recorded. Mental Status None recorded. Family History Nothing Reported Notes:*Problem: Mom had trever l failure Diabetes in the family Medical History No medical history recorded. Immunizations Vaccine Type Date Status Note Provider Nam e and Address Organization Details Recorded Time MMR 0 completed Not Available [facility] 05/16/2023 04:39:45 MMR 2 completed Not Available [facility] 05/16/2023 04:39:46 Tdap 1 completed Not Available [facility] 05/16/2023 04:39:47 Tdap 1 completed Not Available [facility] 05/16/2023 04:39:48 Influenza, split virus, quadrivalent, PF 9 completed Not Available [facility] 05/16/2023 04:39:48 Hib, unspecified formulation 1 completed Not Available [facility] 05/16/2023 04:39:48 Hib, unspecified formulation 1 completed Not Available [facility] 05/16/2023 04:39:49 Hib, unspecified formulation 2 completed Not Available [facility] 05/16/2023 04:39:49 Hib, unspecified formulation 1 completed Not Available [facility] 05/16/2023 04:39:49 DTaP 1 completed Not Available [facility] 05/16/2023 04:39:50 DTaP 1 completed Not Available [facility] 05/16/2023 04:39:50 DTaP 6 completed Not Available [facility] 05/16/2023 04:39:50 DTaP 1 completed Not Available [facility] 05/16/2023 04:39:50 DTaP 2 completed Not Available [facility] 05/16/2023 04:39:50 COVID-19, mRNA, LNP-S, PF, 100 mcg/0.5mL dose or 50 mcg/0.25mL dose 1 completed Not Available [facility] 05/16/2023 04:39:50 COVID-19, mRNA, LNP-S, PF, 100 mcg/0.5mL dose or 50 mcg/0.25mL dose 2 completed Not Available [facility] 05/16/2023 04:39:51 SARS-COV-2 (COVID-19) vaccine, UNSPECIFIED 1 completed Not Available [facility] 05/16/2023 04:39:52 SARS-COV-2 (COVID-19) vaccine, UNSPECIFIED 1 completed Not Available [facility] 05/16/2023 04:39:52 Hep B, unspecified formulation 3 completed Not Available [facility] 05/16/2023 04:39:52 Hep B, unspecified formulation 3 completed Not Available [facility] 05/16/2023 04:39:52 Hep B, unspecified formulation 3 completed Not Available [facility] 05/16/2023 04:39:52 influenza, unspecified formulation 4 completed Not Available [facility] 05/16/2023 04:39:53 polio, unspecified formulation 1 completed Not Available [facility] 05/16/2023 04:39:53 polio, unspecified formulation 1 completed Not Available [facility] 05/16/2023 04:39:54 polio, unspecified formulation 6 completed Not Available [facility] 05/16/2023 04:39:54 polio, unspecified formulation 1 completed Not Available [facility] 05/16/2023 04:39:54 polio, unspecified formulation 2 completed Not Available [facility] 05/16/2023 04:39:54 rabies, unspecified formulation 5 completed Not Available [facility] 05/16/2023 04:39:55 rabies, unspecified formulation 5 completed Not Available [facility] 05/16/2023 04:39:55 Influenza, split virus, trivalent, PF 4 completed NAKIA SANTOS [address], [place], [address], [facility] 06/29/2024 17:51:39 Influenza, split virus, quadrivalent, PF 3 completed Not Available [facility] 07/18/2023 05:33:06 COVID-19, mRNA, LNP-S, PF, kota-sucrose, 30 mcg/0.3 mL 3 completed Not Available [facility] 07/18/2023 05:33:07 Past Encounters Encounter ID Performer Location Encounter Start Date Encounter Closed Date Diagnosis/Indication Diagnosis SNOMED-CT Code Diagnosis ICD10 Code Diagnosis Note [id number] NAKIA SANTOS [facility] [address] [place] [address] 06/28/2024 11:23:42 06/28/2024 12:54:45 Hyponatremia 47887273 E87.1 will recheck this lab. Currently following 2.5 L fluid restrictio n. No signs of excess fluid status on exam. Pt. at baseline from mental status viewpoint. Medlist reconciled . Active or passive immunization 017447728 Z23 Mass lesion of brain 422 840151 R22.0 Pt. to f/u with neurosurge ry for evolving 3.5cm mass [id number] NAKIA SANTOS [facility] [address] [place] [address] 07/15/2024 09:44:29 07/15/2024 10:32:19 Abscess of skin and/or subcutaneous tissue 63124346 L02.91 Pt. with abscess, about 5x10 cm [...] Soliman Member ID Guarantor Name 07/15/2024 1 [facility] (MEDICAID) Miguel Angel Burgos [id number] Miguel Angel Burgos Notes Date Note Type [...] development disability. NAKIA SANTOS [address], [place], [address], [facility]. 07/15/2024 10:33:24
--- OUTSIDE RECORDS SUMMARY | 2024-08-03 13:46 | XMS_ITS | Data Portability ---
Author Organization [place] - [facility] Address [address] [place] [address] Care Team Providers Care Applications Administrator Name Role Phone [facility] Psychiatrist Assessment No assessment recorded. Plan of Treatment Reminders Order Date Submit Date Provider Last Modified By Organization Details Last Modified Time Details Appointments None recorded. Lab lipids, total, serum 2023 024 [facility] (Registration ), [address] [place] [address] [place], [address], 4 14:26:44 CBC w/ auto diff 2023 024 [facility] (Registration ), [address] [place] [address] [place], [address], 4 16:55:12 C-reactive protein, quantitati ve, serum or plasma 2023 024 [email or web address] (Registration ), [address] [place] [address] [place], [address], 4 14:26:43 ESR (erythrocy te sedimentat ion rate), blood 2023 024 [email or web address] (Registration ), [address] [place] [address] [place], [address], 4 14:26:44 CMP, serum or plasma - 1 SST, 1 [place], 1 LAV 2023 024 SHERRILL [facility] (Registration ), [address] [place] [address] Dr, [place], [address], 4 16:36:05 urinalysis , dipstick [address] Laboratory (Lab Direct), [address] [place] [address] [place], [address], 4 14:26:43 TSH, serum, reflex free T4 [address] Laboratory (Registration ), [address] [place] [address] [place], [address], 4 14:26:44 BMP, serum or plasma - 1 SST [address] Laboratory (Registration ), [address] [place] [address] Dr [facility] [place], [address], 4 09:25:07 BMP, serum or plasma [address] Laboratory (Registration ), [address] [place] [address] , [place], [address], 5 13:13:42 Referral wound care referral - Pt, 34-M, [...] him back in clinic. 2024 025 ATHENAFAX [facility], [address] [place] [address] , [address], [place], [address], 5 08:45:22 dermatolog ist referral - Pt 34-M, developmen tally disabled, non-verbal , with history of chronic excoriatio n of skin leading to frequent superficia l infection, currently treating for abscess on left posterior thigh with cephlex and improving, being referred for dermatolog y care. [facility]24 [facility], [address], [place], [address], 5 08:45:20 Procedures None recorded. Surgeries None recorded. Imaging None recorded. Medication Orders quetiapine ER 200 mg tablet,ext ended release 24 hr 2023 024 [place] [id number] [address] [place], [address], 4 12:23:09 cephalexin 500 mg capsule 2023 024 [place] [id number] [address] [place], [address], 4 13:34:22 cephalexin 500 mg capsule 2024 025 [place] [address] [address] [place], [address], 5 10:28:11 cephalexin 500 mg capsule 2024 025 [place] [address] [address] [place], [address], 5 05:42:52 Patient TargetsNo targets recorded. Patient Instructions Encounter Date Encounter Id Patient Instructions Last Modified By Organization Details Last Modified Time 05/04/2024 [id number] cellulitis: care instructions [email or web address] Not available 05/04/2024 11:24:50 07/15/2024 [id number] I have referred Miguel Angel to the [...] please notify us. Not available 07/15/2024 10:30:34 07/22/2024 [id number] As written on your visit sheet. [email or web address] Not available 07/22/2024 11:12:36 Reason for Referral [...] him back in clinic. 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 Referring Physician: Jimbo More [facility] Medicine, Encounter Date: 07/22/2024 Results Created Date Observation Date Name Description Value Unit Range Abnormal Flag Note LastModifiedBy Organization Detail LastModifiedTime 03/05/2003/05/2024 COMPL ETE BLOOD COUNT W/DIF F WBC 6.97 10_3/ uL 4.4-10 .8 normal Not Available [address] [place], [address] 03/05/2024 16:12:09 03/05/20 24 03/05/2024 COMPL ETE BLOOD COUNT W/DIF F RBC 5.23 10_6/ uL 4.36-5 .78 normal Not Available [address] [place], [address] 03/05/2024 16:12:09 03/05/20 24 03/05/2024 COMPL ETE BLOOD COUNT W/DIF F HGB 13.0 g/dL 13.5-1 7.5 low Not Available [address] [place], [address] 03/05/2024 16:12:09 03/05/20 24 03/05/2024 COMPL ETE BLOOD COUNT W/DIF F HCT 40.3 % 40.0-5 0.0 normal Not Available [address] [place], [address] 03/05/2024 16:12:09 03/05/20 24 03/05/2024 COMPL ETE BLOOD COUNT W/DIF F MCV 77 fL 80-95 low Not Available Barrie gomez [address] [place], [address] 03/05/2024 16:12:09 03/05/20 24 03/05/2024 COMPL ETE BLOOD COUNT W/DIF F MCH 24.9 pg 27.0-3 3.0 low Not Available [address] [place], [address] 03/05/2024 16:12:09 03/05/20 24 03/05/2024 COMPL ETE BLOOD COUNT W/DIF F MCHC 32.3 % 32.0-3 6.0 normal Not Available [address] [place], [address] 03/05/2024 16:12:09 03/05/20 24 03/05/2024 COMPL ETE BLOOD COUNT W/DIF F RDW 15.7 % 11.8-1 4.1 high Not Available [address] [place], [address] 03/05/2024 16:12:09 03/05/20 24 03/05/2024 COMPL ETE BLOOD COUNT W/DIF F platelet count 237 10_3/ uL 130-40 0 normal Not Available [address] [place], [address] 03/05/2024 16:12:09 03/05/20 24 03/05/2024 COMPL ETE BLOOD COUNT W/DIF F MPV 10.4 fL 8.0-11 .0 normal Not Available [address] [place], [address] 03/05/2024 16:12:09 03/05/20 24 03/05/2024 COMPL ETE BLOOD COUNT W/DIF F neutrophils % 62.7 % Not Available Santiago cantu [address] [place], [address] 03/05/2024 16:12:09 03/05/20 24 03/05/2024 COMPL ETE BLOOD COUNT W/DIF F lymphocytes % 25.3 % Not Available [address] [place], [address] 03/05/2024 16:12:09 03/05/20 24 03/05/2024 COMPL ETE BLOOD COUNT W/DIF F monocytes % 9.3 % Not Available [address] [place], [address] 03/05/2024 16:12:09 03/05/20 24 03/05/2024 COMPL ETE BLOOD COUNT W/DIF F eosinophils % 1.9 % Not Available [address] [place], [address] 03/05/2024 16:12:09 03/05/20 24 03/05/2024 COMPL ETE BLOOD COUNT W/DIF F basophils % 0.4 % Not Available [address] [place], [address] 03/05/2024 16:12:09 03/05/20 24 03/05/2024 COMPL ETE BLOOD COUNT W/DIF F immature grans % 0.4 % Not Available [address] [place], [address] 03/05/2024 16:12:09 03/05/20 24 03/05/2024 COMPL ETE BLOOD COUNT W/DIF F nucleated RBC 0.0 % 0.0-0. 3 normal Not Available [address] [place], [address] 03/05/2024 16:12:09 03/05/20 24 03/05/2024 COMPL ETE BLOOD COUNT W/DIF F absolute neutrophil count 4.37 10_3/ uL 1.2-6. 7 normal Not Available [address] [place], [address] 03/05/2024 16:12:09 03/05/20 24 03/05/2024 COMPL ETE BLOOD COUNT W/DIF F absolute lymphocyte count 1.76 10_3/ uL 1.2-3. 4 normal Not Available [address] [place], [address] 03/05/2024 16:12:09 03/05/20 24 03/05/2024 COMPL ETE BLOOD COUNT W/DIF F absolute monocyte count 0.65 10_3/ uL 0.1-0. 8 normal Not Available [address] [place], [address] 03/05/2024 16:12:09 03/05/20 24 03/05/2024 COMPL ETE BLOOD COUNT W/DIF F absolute eosinophil count 0.13 10_3/ uL 0.0-0. 7 normal Not Available [address] [place], [address] 03/05/2024 16:12:09 03/05/20 24 03/05/2024 COMPL ETE BLOOD COUNT W/DIF F absolute basophil count 0.03 10_3/ uL 0.0-0. 2 normal Not Available [address] [place], [address] 03/05/2024 16:12:09 03/05/20 24 03/05/2024 ESR ESR 2 mm/HR 0-15 normal Not Available [address] [place], [address] 03/05/2024 16:13:06 03/05/20 24 03/05/2024 COMPR EHENS BEBE METAB OLIC PANEL calcium 9.3 mg/dL 8.5-10 .1 normal Not Available [address] [place], [address] 03/05/2024 17:45:19 03/05/20 24 03/05/2024 COMPR EHENS BEBE METAB OLIC PANEL glucose 88 mg/dL 74-106 normal Not Available Barrie gomez [address] [place], [address] 03/05/2024 17:45:19 03/05/20 24 03/05/2024 COMPR EHENS BEBE METAB OLIC PANEL BUN 24 mg/dL 7-18 high Not Available Barrie gomez [address] [place], [address] 03/05/2024 17:45:19 03/05/20 24 03/05/2024 COMPR EHENS BEBE METAB OLIC PANEL creatinine 1.1 mg/dL 0.70-1 .30 normal Not Available [address] [place], [address] 03/05/2024 17:45:19 03/05/20 24 03/05/2024 COMPR EHENS [...] young er-ag ed adult s. Not Available [address] [place], [address] 03/05/2024 17:45:19 03/05/20 24 03/05/2024 COMPR EHENS BEBE METAB OLIC PANEL total protein 7.3 g/dL 6.4-8. 2 normal Not Available [address] [place], [address] 03/05/2024 17:45:19 03/05/20 24 03/05/2024 COMPR EHENS BEBE METAB OLIC PANEL albumin 4.1 g/dL 3.4-5. 0 normal Not Available [address] [place], [address] 03/05/2024 17:45:19 03/05/20 24 03/05/2024 COMPR EHENS BEBE METAB OLIC PANEL bilirubin, total 0.22 mg/dL 0.2-1. 0 normal Not Available [address] [place], [address] 03/05/2024 17:45:19 03/05/20 24 03/05/2024 COMPR EHENS BEBE METAB OLIC PANEL alk phos 124 U/L 46-116 high Not Available [address] [place], [address] 03/05/2024 17:45:19 03/05/20 24 03/05/2024 COMPR EHENS BEBE METAB OLIC PANEL sodium 142 mmol/ L 136-14 5 normal Not Available [address] [place], [address] 03/05/2024 17:45:19 03/05/20 24 03/05/2024 COMPR EHENS BEBE METAB OLIC PANEL potassium 3.7 mmol/ L 3.5-5. 1 normal Not Available [address] [place], [address] 03/05/2024 17:45:19 03/05/20 24 03/05/2024 COMPR EHENS BEBE METAB OLIC PANEL chloride 106 mmol/ L 98-107 normal Not Available [address] [place], [address] 03/05/2024 17:45:19 03/05/20 24 03/05/2024 COMPR EHENS BEBE METAB OLIC PANEL CO2 26.0 mmol/ L 21.0-3 2.0 normal Not Available [address] [place], [address] 03/05/2024 17:45:19 03/05/20 24 03/05/2024 COMPR EHENS BEBE METAB OLIC PANEL anion gap 10.0 mmol/ L 3-11 normal Not Available [address] [place], [address] 03/05/2024 17:45:19 03/05/20 24 03/05/2024 COMPR EHENS BEBE METAB OLIC PANEL AST 29 U/L 15-37 normal Not Available Barrie gomez [address] [place], [address] 03/05/2024 17:45:19 03/05/20 24 03/05/2024 COMPR EHENS BEBE METAB OLIC PANEL ALT 67 U/L 16-63 high Not Available Barrie gomez [address] [place], [address] 03/05/2024 17:45:19 03/05/20 24 03/05/2024 TSH (W/RE F FT4) TSH (w/ref FT4) < 0.01 uIU/m L 0.36-3 .74 low Not Available [address] [place], [address] 03/05/2024 16:36:06 03/05/20 24 03/05/2024 C-CHELSEA CTIVE PROTE IN C-reactive protein 0.52 mg/dL <or=0. 5 high Not Available [address] [place], [address] 03/05/2024 16:36:06 03/05/20 24 03/05/2024 TSH (W/RE F FT4) TSH (w/ref FT4) < 0.01 uIU/m L 0.36-3 .74 low Not Available [address] [place], [address] 03/05/2024 17:05:17 03/05/20 24 03/05/2024 FREE T4 free T4 1.23 NG/dL 0.76-1 .46 normal Not Available [address] [place], [address] 03/05/2024 17:45:21 03/05/20 24 03/05/2024 C-CHELSEA CTIVE PROTE IN C-reactive protein 0.52 mg/dL <or=0. 5 high Not Available [address] [place], [address] 03/05/2024 17:05:18 03/05/20 24 03/05/2024 LIPID 2 cholesterol 91 mg/dL <200 Not Available [address] [place], [address] 03/05/2024 17:45:20 03/05/20 24 03/05/2024 LIPID 2 triglyceride 117 mg/dL <150 Not Available [address], [address] 03/05/2024 17:45:20 03/05/20 24 03/05/2024 LIPID 2 HDL cholesterol 40 mg/dL 40-60 Not Available [address] [place], [address] 03/05/2024 17:45:20 03/05/20 24 03/05/2024 LIPID 2 [...] 18 years or older . Not Available [address] [place], [address] 03/05/2024 17:45:20 03/05/20 24 03/05/2024 TSH (W/RE F FT4) TSH (w/ref FT4) < 0.01 uIU/m L 0.36-3 .74 low Not Available [address] [place], [address] 03/05/2024 17:45:20 03/05/20 24 03/05/2024 C-CHELSEA CTIVE PROTE IN C-reactive protein 0.52 mg/dL <or=0. 5 high Not Available [address] [place], [address] 03/05/2024 17:45:21 03/10/20 24 03/10/2024 BASIC METAB OLIC PANEL calcium 9.2 mg/dL 8.5-10 .1 normal Not Available [address] [place], [address] 03/10/2024 17:04:57 03/10/20 24 03/10/2024 BASIC METAB OLIC PANEL glucose 86 mg/dL 74-106 normal Not Available Barrie gomez [address] [place], [address] 03/10/2024 17:04:57 03/10/20 24 03/10/2024 BASIC METAB OLIC PANEL BUN 17 mg/dL 7-18 normal Not Available Barrie gomez [address] [place], [address] 03/10/2024 17:04:57 03/10/20 24 03/10/2024 BASIC METAB OLIC PANEL creatinine 0.9 mg/dL 0.70-1 .30 normal Not Available [address] [place], [address] 03/10/2024 17:04:57 03/10/20 24 03/10/2024 BASIC METAB [...] young er-ag ed adult s. Not Available [address] [place], [address] 03/10/2024 17:04:57 03/10/20 24 03/10/2024 BASIC METAB OLIC PANEL sodium 140 mmol/ L 136-14 5 normal Not Available [address] [place], [address] 03/10/2024 17:04:57 03/10/20 24 03/10/2024 BASIC METAB OLIC PANEL potassium 4.1 mmol/ L 3.5-5. 1 normal Not Available [address] [place], [address] 03/10/2024 17:04:57 03/10/20 24 03/10/2024 BASIC METAB OLIC PANEL chloride 104 mmol/ L 98-107 normal Not Available [address] [place], [address] 03/10/2024 17:04:57 03/10/20 24 03/10/2024 BASIC METAB OLIC PANEL CO2 27.6 mmol/ L 21.0-3 2.0 normal Not Available [address] [place], [address] 03/10/2024 17:04:57 03/10/20 24 03/10/2024 BASIC METAB OLIC PANEL anion gap 8.4 mmol/ L 3-11 normal Not Available [address] [place], [address] 03/10/2024 17:04:57 03/10/20 24 03/10/2024 URINA LYSIS color Yellow yellow Not Available Barrie gomez [address] [place], [address] 03/10/2024 18:14:16 03/10/20 24 03/10/2024 URINA LYSIS clarity Clear clear Not Available Barrie gomez [address] [place], [address] 03/10/2024 18:14:16 03/10/20 24 03/10/2024 URINA LYSIS specific gravity 1.020 1.005- 1.025 normal Not Available [address] [place], [address] 03/10/2024 18:14:16 03/10/20 24 03/10/2024 URINA LYSIS pH 5.5 5-8 normal Not Available Barrie gomez [address] [place], [address] 03/10/2024 18:14:16 03/10/20 24 03/10/2024 URINA LYSIS leukocyte esterase Negati ve negati ve Not Available [address] [place], [address] 03/10/2024 18:14:16 03/10/20 24 03/10/2024 URINA LYSIS nitrite Negati ve negati ve Not Available [address] [place], [address] 03/10/2024 18:14:16 03/10/20 24 03/10/2024 URINA LYSIS protein Negati ve mg/dL neg-tr mike Not Available [address] [place], [address] 03/10/2024 18:14:16 03/10/20 24 03/10/2024 URINA LYSIS glucose Negati ve mg/dL negati ve Not Available [address] [place], [address] 03/10/2024 18:14:16 03/10/20 24 03/10/2024 URINA LYSIS ketones Negati ve mg/dL negati ve Not Available [address] [place], [address] 03/10/2024 18:14:16 03/10/20 24 03/10/2024 URINA LYSIS urobilinogen 0.2 mg/dL up to 0.2 Not Available [address] [place], [address] 03/10/2024 18:14:16 03/10/20 24 03/10/2024 URINA LYSIS bilirubin Negati ve negati ve Not Available [address] [place], [address] 03/10/2024 18:14:16 03/10/20 24 03/10/2024 URINA LYSIS blood Negati ve negati ve Not Available [address] [place], [address] 03/10/2024 18:14:16 03/10/20 24 03/13/2024 FREE THYRO XINE INDEX thyroxine total 10.8 mcg/d L 4.5 - 11.7 Not Available [address] [place], [address] 03/15/2024 08:25:07 03/10/20 24 03/13/2024 FREE THYRO XINE INDEX thyroxine binding capacity 1.1 tbi 0.8 - 1.3 Not Available [address] [place], [address] 03/15/2024 08:25:07 03/10/20 24 03/13/2024 FREE THYRO XINE INDEX free thyroxine index 9.8 mcg/d L 4.8 - 12.7 Test Perfo rmed by: [facility] [address], [place] [address] Lab Direc tor: Rosita Oreilly nn Ph.D. ; [facility]# [id number] Not Available [address] [place], [address] 03/15/2024 08:25:07 03/10/2003/10/2024 BASIC METAB OLIC PANEL calcium 9.2 mg/dL 8.5-10 .1 normal Not Available [address] [place], [address] 03/16/2024 03:04:04 03/10/2003/10/2024 BASIC METAB OLIC PANEL glucose 86 mg/dL 74-106 normal Not Available Barrie gomez [address] [place], [address] 03/16/2024 03:04:04 03/10/2003/10/2024 BASIC METAB OLIC PANEL BUN 17 mg/dL 7-18 normal Not Available Barrie gomez [address] [place], [address] 03/16/2024 03:04:04 03/10/2003/10/2024 BASIC METAB OLIC PANEL creatinine 0.9 mg/dL 0.70-1 .30 normal Not Available [address] [place], [address] 03/16/2024 03:04:04 03/10/2003/10/2024 BASIC METAB OLIC PANEL [...] young er-ag ed adult s. Not Available [address] [place], [address] 03/16/2024 03:04:04 03/10/2003/10/2024 BASIC METAB OLIC PANEL sodium 140 mmol/ L 136-14 5 normal Not Available [address] [place], [address] 03/16/2024 03:04:04 03/10/2003/10/2024 BASIC METAB OLIC PANEL potassium 4.1 mmol/ L 3.5-5. 1 normal Not Available [address] [place], [address] 03/16/2024 03:04:04 03/10/2003/10/2024 BASIC METAB OLIC PANEL chloride 104 mmol/ L 98-107 normal Not Available [address] [place], [address] 03/16/2024 03:04:04 03/10/2003/10/2024 BASIC METAB OLIC PANEL CO2 27.6 mmol/ L 21.0-3 2.0 normal Not Available [address] [place], [address] 03/16/2024 03:04:04 03/10/2003/10/2024 BASIC METAB OLIC PANEL anion gap 8.4 mmol/ L 3-11 normal Not Available [address] [place], [address] 03/16/2024 03:04:04 03/10/2003/10/2024 URINA LYSIS color Yellow yellow Not Available Barrie gomez [address] [place], [address] 03/16/2024 03:04:07 03/10/2003/10/2024 URINA LYSIS clarity Clear clear Not Available Barrie gomez [address] [place], [address] 03/16/2024 03:04:07 03/10/2003/10/2024 URINA LYSIS specific gravity 1.020 1.005- 1.025 normal Not Available [address] [place], [address] 03/16/2024 03:04:07 03/10/20 24 03/10/2024 URINA LYSIS pH 5.5 5-8 normal Not Available Barrie gomez [address] [place], [address] 03/16/2024 03:04:07 03/10/2003/10/2024 URINA LYSIS leukocyte esterase Negati ve negati ve Not Available [address] [place], [address] 03/16/2024 03:04:07 03/10/2003/10/2024 URINA LYSIS nitrite Negati ve negati ve Not Available [address] [place], [address] 03/16/2024 03:04:07 03/10/2003/10/2024 URINA LYSIS protein Negati ve mg/dL neg-tr mike Not Available [address] [place], [address] 03/16/2024 03:04:07 03/10/2003/10/2024 URINA LYSIS glucose Negati ve mg/dL negati ve Not Available [address] [place], [address] 03/16/2024 03:04:07 03/10/2003/10/2024 URINA LYSIS ketones Negati ve mg/dL negati ve Not Available [address] [place], [address] 03/16/2024 03:04:07 03/10/2003/10/2024 URINA LYSIS urobilinogen 0.2 mg/dL up to 0.2 Not Available [address] [place], [address] 03/16/2024 03:04:07 03/10/20 24 03/10/2024 URINA LYSIS bilirubin Negati ve negati ve Not Available [address] [place], [address] 03/16/2024 03:04:07 03/10/2003/10/2024 URINA LYSIS blood Negati ve negati ve Not Available [address] [place], [address] 03/16/2024 03:04:07 06/13/20 24 06/13/2024 SODIU M sodium 125 mmol/ L 136-14 5 low Not Available [address] [place], [address] 06/13/2024 23:39:16 06/13/20 24 06/13/2024 SODIU M sodium 122 mmol/ L 136-14 5 critical low Criti zurdo value repor ivana to and readb ack from OLINDA [facility] (FAMILY ASSISTANT) at 2222 06/13 by LAB.I TI Resul t verif ied by repea t guillermo sis Not Available [address] [place], [address] 06/13/2024 22:28:11 06/13/20 24 06/13/2024 URINA LYSIS color Yellow yellow Not Available Barrie gomez [address] [place], [address] 06/13/2024 20:53:56 06/13/2006/13/2024 URINA LYSIS clarity Clear clear Not Available Barrie gomez [address] [place], [address] 06/13/2024 20:53:56 06/13/20 24 06/13/2024 URINA LYSIS specific gravity <= 1.005 1.005- 1.025 normal Not Available [address] [place], [address] 06/13/2024 20:53:56 06/13/20 24 06/13/2024 URINA LYSIS pH 5.0 5-8 normal Not Available Barrie gomez [address] [place], [address] 06/13/2024 20:53:56 06/13/20 24 06/13/2024 URINA LYSIS leukocyte esterase Negati ve negati ve Not Available [address] [place], [address] 06/13/2024 20:53:56 06/13/20 24 06/13/2024 URINA LYSIS nitrite Negati ve negati ve Not Available [address] [place], [address] 06/13/2024 20:53:56 06/13/20 24 06/13/2024 URINA LYSIS protein Negati ve mg/dL neg-tr mike Not Available [address] [place], [address] 06/13/2024 20:53:56 06/13/20 24 06/13/2024 URINA LYSIS glucose Negati ve mg/dL negati ve Not Available [address] [place], [address] 06/13/2024 20:53:56 06/13/20 24 06/13/2024 URINA LYSIS ketones Negati ve mg/dL negati ve Not Available [address] [place], [address] 06/13/2024 20:53:56 06/13/20 24 06/13/2024 URINA LYSIS urobilinogen 0.2 mg/dL up to 0.2 Not Available [address] [place], [address] 06/13/2024 20:53:56 06/13/20 24 06/13/2024 URINA LYSIS bilirubin Negati ve negati ve Not Available [address] [place], [address] 06/13/2024 20:53:56 06/13/20 24 06/13/2024 URINA LYSIS blood Negati ve negati ve Not Available [address] [place], [address] 06/13/2024 20:53:56 06/13/20 24 06/16/2024 ZONIS AMIDE zonisamide 17 mcg/m L 10-40 ----- ----- ----- ----A DDITI ONAL INFOR MATIO N---- ----- ----- ----- This test was devel oped and its perfo rmanc e cristina cteri stics deter mined by Irvona Clinkarina c in a elidia r consi stent with JEANNIE chanel ts. This test has not been clear ed or appro elly by the U.S. Food and Drug Admin istra tion. Test Perfo rmed by: [facility] [address], [place] [address] Lab Direc tor: Rosita Oreilly nn Ph.D. ; [place]# [id number] Not Available [address] [place], [address] 06/17/2024 04:46:05 06/13/20 24 06/13/2024 MAGNE SIUM magnesium 2.1 mg/dL 1.8-2. 4 normal Not Available [address] [place], [address] 06/13/2024 21:12:58 06/13/20 24 06/13/2024 COMPR EHENS BEBE METAB OLIC PANEL calcium 8.2 mg/dL 8.5-10 .1 low Not Available [address] [place], [address] 06/13/2024 21:12:57 06/13/20 24 06/13/2024 COMPR EHENS BEBE METAB OLIC PANEL glucose 60 mg/dL 74-106 low Not Available [facility] [address] [place], [address] 06/13/2024 21:12:57 06/13/20 24 06/13/2024 COMPR EHENS BEBE METAB OLIC PANEL BUN 15 mg/dL 7-18 normal Not Available [address] [place], [address] 06/13/2024 21:12:57 06/13/20 24 06/13/2024 COMPR EHENS BEBE METAB OLIC PANEL creatinine 1.1 mg/dL 0.70-1 .30 normal Not Available [address] [place], [address] 06/13/2024 21:12:57 06/13/20 24 06/13/2024 COMPR EHENS [...] young er-ag ed adult s. Not Available [address] [place], [address] 06/13/2024 21:12:57 06/13/20 24 06/13/2024 COMPR EHENS BEBE METAB OLIC PANEL total protein 8.1 g/dL 6.4-8. 2 normal Not Available [address] [place], [address] 06/13/2024 21:12:57 06/13/20 24 06/13/2024 COMPR EHENS BEBE METAB OLIC PANEL albumin 4.1 g/dL 3.4-5. 0 normal Not Available [address] [place], [address] 06/13/2024 21:12:57 06/13/20 24 06/13/2024 COMPR EHENS BEBE METAB OLIC PANEL bilirubin, total 0.59 mg/dL 0.2-1. 0 normal Not Available [address] [place], [address] 06/13/2024 21:12:57 06/13/20 24 06/13/2024 COMPR EHENS BEBE METAB OLIC PANEL alk phos 132 U/L 46-116 high Not Available [address] [place], [address] 06/13/2024 21:12:57 06/13/20 24 06/13/2024 COMPR EHENS BEBE METAB OLIC PANEL sodium 121 mmol/ L 136-14 5 critical low Criti zurdo value repor ivana to and readb ack from LEILANI STOVALL (RN), ER at 2105 06/13 by LAB.I TI Resul t verif ied by repea t guillermo sis Not Available [address] [place], [address] 06/13/2024 21:12:57 06/13/20 24 06/13/2024 COMPR EHENS BEBE METAB OLIC PANEL potassium 4.2 mmol/ L 3.5-5. 1 normal Not Available [address] [place], [address] 06/13/2024 21:12:57 06/13/20 24 06/13/2024 COMPR EHENS BEBE METAB OLIC PANEL chloride 86 mmol/ L 98-107 low Not Available [address] [place], [address] 06/13/2024 21:12:57 06/13/20 24 06/13/2024 COMPR EHENS BEBE METAB OLIC PANEL CO2 22.6 mmol/ L 21.0-3 2.0 normal Not Available [address] [place], [address] 06/13/2024 21:12:57 06/13/20 24 06/13/2024 COMPR EHENS BEBE METAB OLIC PANEL anion gap 12.4 mmol/ L 3-11 high Not Available [address] [place], [address] 06/13/2024 21:12:57 06/13/20 24 06/13/2024 COMPR EHENS BEBE METAB OLIC PANEL AST 23 U/L 15-37 normal Not Available Barrie [address] [place], [address] 06/13/2024 21:12:57 06/13/20 24 06/13/2024 COMPR EHENS BEBE METAB OLIC PANEL ALT 59 U/L 16-63 normal Not Available Barrie [address] [place], [address] 06/13/2024 21:12:57 06/13/20 24 06/13/2024 COMPL ETE BLOOD COUNT W/DIF F WBC 6.66 10_3/ uL 4.4-10 .8 normal Not Available [address] [place], [address] 06/13/2024 21:04:58 06/13/20 24 06/13/2024 COMPL ETE BLOOD COUNT W/DIF F RBC 5.25 10_6/ uL 4.36-5 .78 normal Not Available [address] [place], [address] 06/13/2024 21:04:58 06/13/20 24 06/13/2024 COMPL ETE BLOOD COUNT W/DIF F HGB 12.9 g/dL 13.5-1 7.5 low Not Available [address] [place], [address] 06/13/2024 21:04:58 06/13/20 24 06/13/2024 COMPL ETE BLOOD COUNT W/DIF F HCT 38.5 % 40.0-5 0.0 low Not Available [address] [place], [address] 06/13/2024 21:04:58 06/13/20 24 06/13/2024 COMPL ETE BLOOD COUNT W/DIF F MCV 73 fL 80-95 low Not Available [address] [place], [address] 06/13/2024 21:04:58 06/13/20 24 06/13/2024 COMPL ETE BLOOD COUNT W/DIF F MCH 24.6 pg 27.0-3 3.0 low Not Available [address] [place], [address] 06/13/2024 21:04:58 06/13/20 24 06/13/2024 COMPL ETE BLOOD COUNT W/DIF F MCHC 33.5 % 32.0-3 6.0 normal Not Available [address] [place], [address] 06/13/2024 21:04:58 06/13/20 24 06/13/2024 COMPL ETE BLOOD COUNT W/DIF F RDW 13.6 % 11.8-1 4.1 normal Not Available [address] [place], [address] 06/13/2024 21:04:58 06/13/20 24 06/13/2024 COMPL ETE BLOOD COUNT W/DIF F platelet count 260 10_3/ uL 130-40 0 normal Not Available [address] [place], [address] 06/13/2024 21:04:58 06/13/20 24 06/13/2024 COMPL ETE BLOOD COUNT W/DIF F MPV 8.9 fL 8.0-11 .0 normal Not Available [address] [place], [address] 06/13/2024 21:04:58 06/13/20 24 06/13/2024 COMPL ETE BLOOD COUNT W/DIF F neutrophils % 61.9 % Not Available [address] [place], [address] 06/13/2024 21:04:58 06/13/20 24 06/13/2024 COMPL ETE BLOOD COUNT W/DIF F lymphocytes % 26.6 % Not Available [address] [place], [address] 06/13/2024 21:04:58 06/13/20 24 06/13/2024 COMPL ETE BLOOD COUNT W/DIF F monocytes % 8.1 % Not Available [address] [place], [address] 06/13/2024 21:04:58 06/13/20 24 06/13/2024 COMPL ETE BLOOD COUNT W/DIF F eosinophils % 1.1 % Not Available [address] [place], [address] 06/13/2024 21:04:58 06/13/20 24 06/13/2024 COMPL ETE BLOOD COUNT W/DIF F basophils % 0.3 % Not Available [address] [place], [address] 06/13/2024 21:04:58 06/13/20 24 06/13/2024 COMPL ETE BLOOD COUNT W/DIF F immature grans % 2.0 % Not Available [address] [place], [address] 06/13/2024 21:04:58 06/13/20 24 06/13/2024 COMPL ETE BLOOD COUNT W/DIF F nucleated RBC 0.0 % 0.0-0. 3 normal Not Available [address] [facility] [place], [address] 06/13/2024 21:04:58 06/13/20 24 06/13/2024 COMPL ETE BLOOD COUNT W/DIF F absolute neutrophil count 4.13 10_3/ uL 1.2-6. 7 normal Not Available [address] [place], [address] 06/13/2024 21:04:58 06/13/20 24 06/13/2024 COMPL ETE BLOOD COUNT W/DIF F absolute lymphocyte count 1.77 10_3/ uL 1.2-3. 4 normal Not Available [address] [place], [address] 06/13/2024 21:04:58 06/13/20 24 06/13/2024 COMPL ETE BLOOD COUNT W/DIF F absolute monocyte count 0.54 10_3/ uL 0.1-0. 8 normal Not Available [address] [place], [address] 06/13/2024 21:04:58 06/13/20 24 06/13/2024 COMPL ETE BLOOD COUNT W/DIF F absolute eosinophil count 0.07 10_3/ uL 0.0-0. 7 normal Not Available [address] [place], [address] 06/13/2024 21:04:58 06/13/20 24 06/13/2024 COMPL ETE BLOOD COUNT W/DIF F absolute basophil count 0.02 10_3/ uL 0.0-0. 2 normal Not Available [address] [place], [address] 06/13/2024 21:04:58 06/13/20 24 06/13/2024 COMPL ETE BLOOD COUNT W/DIF F diff comment RBC Morph Review ed Not Available [address] [place], [address] 06/13/2024 21:04:58 06/13/20 24 06/13/2024 COMPL ETE BLOOD COUNT W/DIF F RBC morphology See Below Not Available [address] [place], [address] 06/13/2024 21:04:58 06/13/20 24 06/13/2024 COMPL ETE BLOOD COUNT W/DIF F microcytosis 1+ Not Available [address] [place], [address] 06/13/2024 21:04:58 06/13/20 06/13/2024 PROTH ROMBI N TIME prothrombin time 11.0 sec 9.1-11 .1 normal Not Available [address] [place], [address] 06/13/2024 21:04:56 06/13/20 24 06/13/2024 PROTH ROMBI N TIME INR 1.1 0.9-1. 1 normal Recom ivon d INR thera peuti c range s for orall y admin ister ed drugs are as follo ws: -Elias dard Inten sity 2.0 to 3.0 -High er Inten sity 3.0 to 4.5 Not Available [address] [place], [address] 06/13/2024 21:04:56 06/28/20 24 06/28/2024 BASIC METAB OLIC PANEL calcium 9.0 mg/dL 8.5-10 .1 normal Not Available [address] [facility] [place], [address] 06/28/2024 16:50:30 06/28/20 24 06/28/2024 BASIC METAB OLIC PANEL glucose 82 mg/dL 74-106 normal Not Available Barrie gomez [address] [place], [address] 06/28/2024 16:50:30 06/28/20 24 06/28/2024 BASIC METAB OLIC PANEL BUN 26 mg/dL 7-18 high Not Available Barrie gomez [address] [place], [address] 06/28/2024 16:50:30 06/28/20 24 06/28/2024 BASIC METAB OLIC PANEL creatinine 1.1 mg/dL 0.70-1 .30 normal Not Available [address] [place], [address] 06/28/2024 16:50:30 06/28/20 24 06/28/2024 BASIC METAB [...] young er-ag ed adult s. Not Available [address] [place], [address] 06/28/2024 16:50:30 06/28/20 24 06/28/2024 BASIC METAB OLIC PANEL sodium 144 mmol/ L 136-14 5 normal Not Available [address] [place], [address] 06/28/2024 16:50:30 06/28/20 24 06/28/2024 BASIC METAB OLIC PANEL potassium 4.0 mmol/ L 3.5-5. 1 normal Not Available [address] [place], [address] 06/28/2024 16:50:30 06/28/20 24 06/28/2024 BASIC METAB OLIC PANEL chloride 107 mmol/ L 98-107 normal Not Available [address] [place], [address] 06/28/2024 16:50:30 06/28/20 24 06/28/2024 BASIC METAB OLIC PANEL CO2 25.0 mmol/ L 21.0-3 2.0 normal Not Available [address] [place], [address] 06/28/2024 16:50:30 06/28/20 24 06/28/2024 BASIC METAB OLIC PANEL anion gap 12.0 mmol/ L 3-11 high Not Available [address] [place], [address] 06/28/2024 16:50:30 07/15/19 25 07/15/2024 SODIU M sodium 141 mmol/ L 136-14 5 normal Not Available [address] [place], [address] 07/16/2024 16:14:24 07/15/19 25 07/15/2024 SODIU M sodium 141 mmol/ L 136-14 5 normal Not Available [address] [place], [address] 07/15/2024 16:16:44 07/22/1907/22/2024 BASIC METAB OLIC PANEL calcium 8.6 mg/dL 8.5-10 .1 normal Not Available [address] [place], [address] 07/22/2024 15:40:42 07/22/19 25 07/22/2024 BASIC METAB OLIC PANEL glucose 80 mg/dL 74-106 normal Not Available Barrie gomez [address] [place], [address] 07/22/2024 15:40:42 07/22/19 25 07/22/2024 BASIC METAB OLIC PANEL BUN 17 mg/dL 7-18 normal Not Available Barrie gomez [address] [place], [address] 07/22/2024 15:40:42 07/22/19 25 07/22/2024 BASIC METAB OLIC PANEL creatinine 1.0 mg/dL 0.70-1 .30 normal Not Available [address] [place], [address] 07/22/2024 15:40:42 07/22/19 25 07/22/2024 BASIC METAB [...] young er-ag ed adult s. Not Available [address] [place], [address] 07/22/2024 15:40:42 07/22/19 25 07/22/2024 BASIC METAB OLIC PANEL sodium 141 mmol/ L 136-14 5 normal Not Available [address] [place], [address] 07/22/2024 15:40:42 07/22/19 25 07/22/2024 BASIC METAB OLIC PANEL potassium 3.8 mmol/ L 3.5-5. 1 normal Not Available [address] [place], [address] 07/22/2024 15:40:42 07/22/19 25 07/22/2024 BASIC METAB OLIC PANEL chloride 105 mmol/ L 98-107 normal Not Available [address] [place], [address] 07/22/2024 15:40:42 07/22/19 25 07/22/2024 BASIC METAB OLIC PANEL CO2 28.4 mmol/ L 21.0-3 2.0 normal Not Available [address] [place], [address] 07/22/2024 15:40:42 07/22/19 25 07/22/2024 BASIC METAB OLIC PANEL anion gap 7.6 mmol/ L 3-11 normal Not Available [address] [place], [address] 07/22/2024 15:40:42 07/30/19 25 07/30/2024 SODIU M sodium 133 mmol/ L 136-14 5 low Not Available [address] [place], [address] 07/30/2024 16:05:14 07/30/19 25 07/30/2024 SODIU M sodium 133 mmol/ L 136-14 5 low Not Available [address] [place], [address] 07/30/2024 15:23:01 08/03/19 25 08/03/2024 SODIU M sodium 140 mmol/ L 136-14 5 normal Not Available [address] [place], [address] 08/03/2024 13:40:48 03/21/20 24 08/04/2019 imagi ng/di agnos tic [...] t Name: Miguel Angel Burgos Unit #: [id number] Loc: ER Orderi ng Provid er: Accoun t #: [id number] Status : PRE ER Primar y Care Provid er: Derik Maritzadeepthitorey barbie Date of Exam: 02/27 Sex: M : [...] of the extra- axial space along the airplane pilot ior midlin e of the airplane pilot ior fossa presum ably repres ents promin [...] MD. Orderi ng:Madeleine Ortega MD Access ion#=[id number] Ordere d By: CC: ------ ------ [...] error, please notify us immedi ately at [phone] and return the origin al report to us at the addres s above. Thank- you. [facility] [address] [place], [address] 06/14/2024 13:39:40 06/14/20 24 06/14/2024 CT imagi ng laurence bui Patigato t Name: Miguel Angel Burgos Unit #: [id number] Loc: ER Orderi ng Provid er: Diego Winchester M.D. Accoun t #: [id number] Status : DEP ER Primar y [...] facili ty are submit ivana to the [facility] al Radiol ogy Data Regist ry [...] this report in error, please notify us immedkarina resendiz at and return the origin al report to us at the addres s above. Thank- you. INTERFACE [facility] [address], [place], [address] 06/14/2024 09:01:48 Result Notes None recorded. Problems Name Problem SNOMED Code Status Onset Date Resolution Date Notes Provider Name and Address Organization Details Recorded Time Hyponatr emia 14179483 Active 2023 NAKIA SANTOS [address], [place], [address] , [facility], [facility] 4 12:31:17 Mass lesion of brain 910348134 Active 2023 NAKIA SANTOS [address], [place], [address] , [facility], [facility] 4 17:54:43 Abscess of skin and/or subcutan eous tissue 47911910 Active 2024 NAKIA SANTOS [address], [place], [address] , [facility] 5 10:14:30 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 Problem Code: H47.20; Problem Code Type: ICD-10; Not Available [facility] 3 04:21:52 Gastriti s 8224850 Active 2016 Problem Code: K29.70; Problem Code Type: ICD-10; Not Available [facility] 3 04:21:52 Urinary incontin ence 811652770 Active 2016 Problem Code: R32; Problem Code Type: ICD-10; Not Available [facility] 3 04:21:52 Senile osteopor osis 45195588 Active 201602/22/20 21 - Comments only - [...] M81.0; Problem Code Type: ICD-10; Not Available [facility] 3 04:21:52 Pure hypergly ceridemi a 457032491 Active 201602/27/20 22 - Comments only - Ren Vaz MD - tolerati ng statin. However with elevated LFTs could consider cutting statin dose to see if helps LFTs. Problem Code: E78.1; Problem Code Type: ICD-10; Not Available [facility] 3 04:21:53 History of benign neoplasm of brain 323040871 Active 2016 Problem Code: Z86.011; Problem Code Type: ICD-10; Not Available [facility] 3 04:21:53 Insomnia 498342814 Active 201612/09/19 19 - Deterior ated - Subha Darlene SOFTWARE APPLICATIONS ARCHITECT - Currentl y on trazodon e, not effectiv e. See above. 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 Cycloben zaprine no longer effectiv e. Will change to baclofen 10mg TID. group home manager will call in 1-2 weeks to report effectiv eness. Pain may be influenc ing increase d agitatio n and poor sleep. Problem Code: M24.50; Problem Code Type: ICD-10; Not Available [facility] 3 04:21:53 Amnesia 79643258 Active 2016 Problem Code: R41.3; Problem Code Type: ICD-10; Not Available [facility] 3 04:21:53 Hemipleg ia 65168768 Active 201602/22/20 21 - Comments only - Ren Vaz MD - Encourag ing increase in activty. I agree with PT. Problem Code: G81.90; Problem Code Type: ICD-10; Not Available [facility] 3 04:21:54 Red blood cell finding 049249625 Active 2017 Problem Code: R71.8; Problem Code Type: ICD-10; Not Available [facility] 3 04:21:54 Retentio n of urine 118840183 Active 201805/18/20 19 - Comments only - Subha Colon APRN - Suscepti ble to UTIs. They will return urine sample for testing. Problem Code: R33.9; Problem Code Type: ICD-10; Not Available [facility] 3 04:21:54 Restless ness and agitatio n 643562051 Active 2018 Problem Code: R45.1; Problem Code Type: ICD-10; Not Available [facility] 3 04:21:54 Seizure 90713538 Active 2018 Problem Code: R56.9; Problem Code Type: ICD-10; Not Available [facility] 3 04:21:54 Dyspnea 251354904 Completed 201806/01/2019 Problem Code: R06.02; Problem Code Type: ICD-10; Not Available [facility] 3 04:21:54 Acute upper respirat ory infectio n 35485226 Completed 201806/01/2019 05/18/20 19 - Comments only - Subha Colon APRN - With low-grad e fever, producti ve cough, wheezing . Pt is quite suscepti ble to both respirat ory and urinary tract infectio ns. Will start doxycycl ine to cover for possible pneumoni a. Advised to increase use of nebulize r to TID. Problem Code: J06.9; Problem Code Type: ICD-10; Not Available [facility] 3 04:21:55 Steatosi s of liver 029018906 Active 201903/03/20 23 - Comments only - Ren Vaz MD - Improved last year with weight loss. REcheck CBC/CMP with labs Problem Code: K76.0; Problem Code Type: ICD-10; Not Available [facility] 3 04:21:55 Adult health examinat ion Active [...] Z00.00; Problem Code Type: ICD-10; Not Available [facility] 3 04:21:55 Bradycar hossein 50913434 Completed 201909/01/2019 08/25/19 20 - Comments only - Ren Vaz MD - Resolved after stopping metoprol ol. BP still okay, no hard indicati on for metoprol ol, so continue off this medicati on. Problem Code: R00.1; Problem Code Type: ICD-10; Not Available [facility] 3 04:21:55 Urticari a 959611572 Active 201908/14/19 21 - Comments only - Ren Vaz MD - irmpoved . continue higher dose H2 gui for now. Problem Code: L50.9; Problem Code Type: ICD-10; Not Available [facility] 3 04:21:55 Localize d eruption of skin 222925477 Completed 201904/26/2020 04/05/20 20 - Comments only - Ricarda Sanchez APPLICATION RELEASE MANAGER - Unclear etiology : possibly contact [...] R21; Problem Code Type: ICD-10; Not Available [facility] 3 04:21:56 Anemia 796062657 Active 202008/20/19 22 - Comments only - Ren Vaz MD - This has been a stable chronic issue. We discusse d I iron stores actually normal, low TIBC suggests chronic disease cause. Continue to follow. Problem Code: D64.9; Problem Code Type: ICD-10; Not Available [facility] 3 04:21:56 Hypo-osm olality and or hyponatr emia 702143375 Active 202002/22/20 21 - Comments only - Ren Vaz MD - Doing well on fluid restrict ion, continue . Problem Code: E87.1; Problem Code Type: ICD-10; Not Available [facility] 3 04:21:56 Obesity 662365924 Active 2020 Problem Code: E66.9; Problem Code Type: ICD-10; Not Available [facility] 3 04:21:56 Furuncle of left axilla 01139283750 399652 Active 202003/14/20 21 - Comments only - [...] L02.422; Problem Code Type: ICD-10; Not Available [facility] 3 04:21:56 Trichoti manishaia 41872266 Active 202102/27/20 22 - Comments only - Ren Vaz MD - Discusse d skin care, defer medicati on adjustme nts to psych Problem Code: F63.3; Problem Code Type: ICD-10; Not Available [facility] 3 04:21:56 Diabetes insipidu s 94596154 Active 201605/24/20 19 - Comments only - Subha Colon APRN - Will recheck sodium level. Problem Code: E23.2; Problem Code Type: ICD-10; Not Available [facility] 3 04:21:57 Hypopitu itarism 88354477 Active 2016 Problem Code: E23.0; Problem Code Type: ICD-10; Not Available [facility] 3 04:21:57 Hypothyr oidism 24363755 Active 201602/22/20 21 - Comments only - Ren Vaz MD - FT4 at [facility], continue current supplume ntation Problem Code: E03.8; Problem Code Type: ICD-10; Not Available [facility] 3 04:21:57 History and physical examinat ion, administ rative Completed 201807/09/2019 Problem Code: Z02.89; Problem Code Type: ICD-10; Not Available [facility] 3 04:21:58 Disorder of eye 087634904 Completed 201804/05/2019 Problem Code: H44.89; Problem Code Type: ICD-10; Not Available [facility] 3 04:21:59 Pain of left knee joint 51194651266 4107 Completed 201707/09/2019 Problem Code: M25.562; Problem Code Type: ICD-10; Not Available [facility] 3 04:21:59 Bleeding 078905359 Completed 202002/21/2021 Problem Code: R58; Problem Code Type: ICD-10; Not Available [facility] 3 04:21:59 Fever 690341791 Completed 201804/05/2019 Problem Code: R50.9; Problem Code Type: ICD-10; Not Available [facility] 3 04:21:59 Family history of diabetes mellitus 885831406 Completed 201607/09/2019 Problem Code: Z83.3; Problem Code Type: ICD-10; Not Available [facility] 3 04:22:00 Fever 334189232 Completed 201805/24/2019 Problem Code: R50.9; Problem Code Type: ICD-10; Not Available [facility] 3 04:22:00 Gastroes ophageal reflux disease without esophagi tis 975695049 Completed 201604/02/2023 Problem Code: K21.9; Problem Code Type: ICD-10; Not Available [facility] 3 04:22:00 Wheezing 37159515 Completed 201709/18/2018 Problem Code: R06.2; Problem Code Type: ICD-10; Not Available [facility] 3 04:22:00 High enzyme level in serum 598992869 Completed 201904/02/2023 02/27/20 22 - Comments only [...] R74.8; Problem Code Type: ICD-10; Not Available [facility] 3 04:22:01 Body mass index 30+ - obesity 600273843 Completed 202004/02/2023 Problem Code: Z68.34; Problem Code Type: ICD-10; Not Available [facility] 3 04:22:01 Disorder of intestin e 76673135 Completed 202008/14/2020 Problem Code: K63.9; Problem Code Type: ICD-10; Not Available [facility] 3 04:22:01 Screenin g for disorder Completed 201809/18/2018 Problem Code: Z13.9; Problem Code Type: ICD-10; Not Available [facility] 3 04:22:01 Spasm 36932551 Completed 201704/02/2023 08/25/19 20 - Comments only - Ren Vaz MD - Ongoing problem since CVA. Has neuro consult in october to consiide botox. For now try higher dose lorazepa m along with baclofen . Problem Code: R25.2; Problem Code Type: ICD-10; Not Available [facility] 3 04:22:02 Pain of right knee joint 60621416436 4100 Completed 201704/30/2018 Problem Code: M25.561; Problem Code Type: ICD-10; Not Available [facility] 3 04:22:02 Cough 70100222 Completed 201709/08/2019 Problem Code: R05; Problem Code Type: ICD-10; Not Available [facility] 3 04:22:02 Iron deficien cy anemia 49673892 Completed 201704/02/2023 Problem Code: D50.8; Problem Code Type: ICD-10; NAKIA SANTOS [address], [place], [address] , [facility] 4 09:14:59 Counseli ng Completed 201812/08/2018 Problem Code: Z71.89; Problem Code Type: ICD-10; Not Available [facility] 3 04:22:03 Disorder of tooth developm ent 288463290 Completed 201808/14/2020 Problem Code: K00.9; Problem Code Type: ICD-10; Not Available [facility] 3 04:22:03 Hypocalc emia 7264612 Completed 201910/25/2019 Problem Code: E83.51; Problem Code Type: ICD-10; Not Available [facility] 3 04:22:03 Hyperosm olality and or hypernat remia 841983429 Completed 201908/14/2020 Problem Code: E87.0; Problem Code Type: ICD-10; Not Available [facility] 3 04:22:04 Testicul ar hypofunc tion 254509095 Completed 201604/02/2023 Problem Code: E29.1; Problem Code Type: ICD-10; Not Available [facility] 3 04:22:04 Seasonal allergic rhinitis 203186868 Completed 201904/02/2023 10/25/19 20 - Comments only - Ren Vaz MD - try H1 block Problem Code: J30.2; Problem Code Type: ICD-10; Not Available [facility] 3 04:22:05 Wheezing 59993071 Completed 201805/24/2019 Problem Code: R06.2; Problem Code Type: ICD-10; Not Available [facility] 3 04:22:05 Seizure 84744106 Completed 201607/09/2019 Problem Code: R56.9; Problem Code Type: ICD-10; Not Available [facility] 3 04:22:05 Chronic excoriat ion of skin 601640366 Active [address], [facility] [address] , [facility] 4 09:12:56 Non-alco holic fatty liver disease Active [address], [facility] [address] , [facility] 4 09:14:30 Iron deficien cy anemia 56640674 Active 2023 Problem Code: D50.8; Problem Code Type: ICD-10; NAKIA SANTOS Dr, [facility] [address] , [facility] 4 09:14:59 Pruritic disorder 166799139 Active [address], [facility] [address] , [facility] 4 09:21:10 Seizure disorder 828313591 Active [address] [facility] [address] , [facility] 10:59:32 Finding of frequenc y of urinatio n 731300155 Active [address], [place], [address] , [facility] 11:23:00 Notes:*Problem Name: Blindne ss - both [...] available 03/21/2024 21:53:43 06/13/2024 vrad report completed [email or web address] [address] [place], [address] 06/14/2024 13:39:40 06/14/2024 CT imaging report completed INTERFACE [address] [place], [address] 06/14/2024 09:01:48 Procedure Notes None recorded. Medical Equipment None Reported. Allergies Allergen ID Allergen Name Allergen Category Reaction Reaction Severity Criticality Documentation Date Start Date Code Code System Note Provider Name and Address Organization Details Recorded Time 32035 Lopid medicatio n Not available Not available Not available 05/04/2024 9 RxNorm Ashley England MA [facility], [place] - [facility]. 10:58:41 Medications Name Sig Start Date [...] 2017 active Not Available Not Available Not Troy labmerari melatonin 10 mg tablet 1 tab qhs [...] 2016 active Not Available Not Available Not Troy strange Vitals Date Recorded Body height Body mass index (BMI) Body weight Body temperature Oxygen saturation Oxygen saturation in Arterial blood by Pulse oximetry Heart rate Systolic blood pressure Diastolic blood pressure Provider Name and Address Organization Details Last Updated DateTime 4 167.157 4 cm 33.5 kg/m2 41645.1 8 g 97.7 [degF] 96 % 96 % 83 /min 118 mm[Hg] 82 mm[Hg] KRISTYN SINGH MA [place] - [facility]. 4 11:07:26 Date Recorded Body height Body mass index (BMI) Body weight Body temperature Oxygen saturation Oxygen saturation in Arterial blood by Pulse oximetry Heart rate Respiratory rate Systolic blood pressure Diastolic blood pressure Provider Name and Address Organization Details Last Updated DateTime 4 167.157 4 cm 33.3 kg/m2 31763.4 4 g 97.7 [degF] 97 % 97 % 92 /min 18 /min 110 mm[Hg] 76 mm[Hg] Ashley England MA [facility], [facility] 4 10:58:12 Date Recorded Body height Body mass index (BMI) Body weight Body temperature Oxygen saturation Oxygen saturation in Arterial blood by Pulse oximetry Heart rate Systolic blood pressure Diastolic blood pressure Provider Name and Address Organization Details Last Updated DateTime 4 167.157 4 cm 34.3 kg/m2 64173.9 9 g 97.2 [degF] 97 % 97 % 80 /min 128 mm[Hg] 70 mm[Hg] KRISTYN SINGH MA [facility] 4 11:35:36 Date Recorded Body height Body mass index (BMI) Body weight Body temperature Oxygen saturation Oxygen saturation in Arterial blood by Pulse oximetry Heart rate Systolic blood pressure Diastolic blood pressure Provider Name and Address Organization Details Last Updated DateTime 5 167.157 4 cm 31.5 kg/m2 09848.6 4 g 97.5 [degF] 100 % 100 % 96 /min 106 mm[Hg] 68 mm[Hg] KRISTYN SINGH MA [facility] 5 10:00:19 Date Recorded Body height Body mass index (BMI) Body weight Body temperature Oxygen saturation Oxygen saturation in Arterial blood by Pulse oximetry Heart rate Systolic blood pressure Diastolic blood pressure Provider Name and Address Organization Details Last Updated DateTime 5 167.157 4 cm 35.1 kg/m2 45744.3 9 g 97.3 [degF] 100 % 100 % 92 /min 132 mm[Hg] 72 mm[Hg] KRISTYN SINGH MA [facility] 5 10:30:05 Social History Question Answer Notes LastModified by Organizat ion Details LastModified Time Tobacco Smoking Status Never Smoker MALOU Martinez, [facility] 05/04/2024 11:00:43 What Was The Date Of Your Most Recent Tobacco Screening? 05/04/2024 [email or web address] Information not available 05/04/2024 Has Tobacco Cessation Counseling Been Provided? Yes [email or web address] Information not available 05/04/2024 On What Date Was Tobacco Cessation Counseling Provided? 05/04/2024 [email or web address] Information not available 05/04/2024 Sex: Male Functional Status None recorded. Mental Status None recorded. Family History Nothing Reported Notes:*Problem: Mom had trever l failure Diabetes in the family Medical History No medical history recorded. Immunizations Vaccine Type Date Status Note Provider Nam e and Address Organization Details Recorded Time MMR 0 completed Not Available [facility] 05/16/2023 04:39:45 MMR 2 completed Not Available [facility] 05/16/2023 04:39:46 Tdap 1 completed Not Available [facility] 05/16/2023 04:39:47 Tdap 1 completed Not Available [facility] 05/16/2023 04:39:48 Influenza, split virus, quadrivalent, PF 9 completed Not Available [facility] 05/16/2023 04:39:48 Hib, unspecified formulation 1 completed Not Available [facility] 05/16/2023 04:39:48 Hib, unspecified formulation 1 completed Not Available [facility] 05/16/2023 04:39:49 Hib, unspecified formulation 2 completed Not Available [facility] 05/16/2023 04:39:49 Hib, unspecified formulation 1 completed Not Available [facility] 05/16/2023 04:39:49 DTaP 1 completed Not Available [facility] 05/16/2023 04:39:50 DTaP 1 completed Not Available [facility] 05/16/2023 04:39:50 DTaP 6 completed Not Available [facility] 05/16/2023 04:39:50 DTaP 1 completed Not Available [facility] 05/16/2023 04:39:50 DTaP 2 completed Not Available [facility] 05/16/2023 04:39:50 COVID-19, mRNA, LNP-S, PF, 100 mcg/0.5mL dose or 50 mcg/0.25mL dose 1 completed Not Available [facility] 05/16/2023 04:39:50 COVID-19, mRNA, LNP-S, PF, 100 mcg/0.5mL dose or 50 mcg/0.25mL dose 2 completed Not Available [facility] 05/16/2023 04:39:51 SARS-COV-2 (COVID-19) vaccine, UNSPECIFIED 1 completed Not Available [facility] 05/16/2023 04:39:52 SARS-COV-2 (COVID-19) vaccine, UNSPECIFIED 1 completed Not Available [facility] 05/16/2023 04:39:52 Hep B, unspecified formulation 3 completed Not Available [facility] 05/16/2023 04:39:52 Hep B, unspecified formulation 3 completed Not Available [facility] 05/16/2023 04:39:52 Hep B, unspecified formulation 3 completed Not Available [facility] 05/16/2023 04:39:52 influenza, unspecified formulation 4 completed Not Available [facility] 05/16/2023 04:39:53 polio, unspecified formulation 1 completed Not Available [facility] 05/16/2023 04:39:53 polio, unspecified formulation 1 completed Not Available [facility] 05/16/2023 04:39:54 polio, unspecified formulation 6 completed Not Available [facility] 05/16/2023 04:39:54 polio, unspecified formulation 1 completed Not Available [facility] 05/16/2023 04:39:54 polio, unspecified formulation 2 completed Not Available [facility] 05/16/2023 04:39:54 rabies, unspecified formulation 5 completed Not Available [facility] 05/16/2023 04:39:55 rabies, unspecified formulation 5 completed Not Available [facility] 05/16/2023 04:39:55 Influenza, split virus, trivalent, PF [address], [place], [address], [facility] 06/29/2024 17:51:39 Influenza, split virus, quadrivalent, PF 3 completed Not Available [facility] 07/18/2023 05:33:06 COVID-19, mRNA, LNP-S, PF, kota-sucrose, 30 mcg/0.3 mL 3 completed Not Available [facility] 07/18/2023 05:33:07 Past Encounters Encounter ID Performer Location Encounter Start Date Encounter Closed Date Diagnosis/Indication Diagnosis SNOMED-CT Code Diagnosis ICD10 Code Diagnosis Note [id number] NAKIA SANTOS [facility] [address] [place] [address] 09/18/2023 08:30:46 09/18/2023 09:43:31 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 actively picking at skin with frequency. Advised covering during day when supervised and removing at night as I'm informed he's tried to eat band aids before at night. Chronic ex coriation of skin 172800913 T14.8XXA We will Rx pplx mupiricin in case of any signs of infection related to chronic picking at scabs. Non-alcoho lic fatty liver disease 5775956197 K76.0 Pt. with evidence on Ultrasound s which have been on yearly surveillan ce. We will check labs for liver health/ble eding risk as below in iron deficiency anemia orders. Iron defic iency anemia 53041523 D50.9 Will check labs as pt. picking leads to bleeding that seems a bit out of proportion to the scabs he is picking off. Pruritic disorder 110572 002 L29.9 We will make up to 2 tablets avialable at night of hydroxyzin e for pruritis. [id number] NAKIA SANTOS [facility] [address] [place] [address] 03/05/2024 10:55:01 03/05/2024 12:03:04 Finding of frequency of urination 379735451 R35.0 Will check urine. Pt. unable to urinate in office so cup given and caregiver will drop off. Restlessne ss and agitation 727739858 R45.1 We will increase his quetiapine from 150 mg ER qday to 200mg ER qday. Adult heal th examination 768561057 Z00.00 Hyperlipid emia screening 448078219 Z13.220 Hypothyroidism 43992905 E03.9 [id number] LAURIE RODGERS [address] [place] [address] 05/04/2024 09:55:01 05/04/2024 11:28:26 Cellulitis of right lower limb 7023900814 2322574 L03.115 33 year old male with onset [...] area is amenable to incision and drainage. [id number] NAKIA SANTOS [facility] [address] [place] [address] 06/28/2024 11:23:42 06/28/2024 12:54:45 Hyponatremia 41095252 E87.1 will recheck this lab. Currently following 2.5 L fluid restrictio n. No signs of excess fluid status on exam. Pt. at baseline from mental status viewpoint. Medlist reconciled . Active or passive immunization 610704822 Z23 Mass lesion of brain 422 575542 R22.0 Pt. to f/u with neurosurge ry for evolving 3.5cm mass [id number] NAKIA SANTOS [facility] [address] [facility] [place] [address] 07/15/2024 09:44:29 07/15/2024 10:32:19 Abscess of skin and/or subcutaneous tissue 35285730 L02.91 Pt. with abscess, about 5x10 cm along eliptical axis of left posterolat eral thigh, warm, ttp. Will start antibiotic s given pt. propensity to pick and current discomfort . Referred to wound care clinic for this and the other smaller ulceration on his right upper thigh. [id number] NAKIA SANTOS [facility] [address] [place] [address] 07/22/2024 10:14:28 07/22/2024 11:15:42 Abscess of skin and/or subcutaneous tissue 62503839 L02.91 Abscess area is improved with less redness circumfere ntially. Will continue Cephalexin for another 5 days. If infection worsens immediatel y after that, he may need GS referral for surgical excision/d rainage given the pt. comorbidit ies this would be a risk in the primary care office. Chronic ex coriation of skin 900143127 T14.8XXA We will Rx pplx mupiricin in case of any signs of infection related to chronic picking at scabs. Hyponatremia 76024017 E8 7.1 will recheck this lab. Currently [...] Member ID Guarantor Name 03/05/2024 1 [facility] ([employer]ICA[employer]) Miguel Angel D Barrup [id number] Miguel Angel D Barrup 05/04/2024 1 [facility] ([employer]ICA[employer]) Miguel Angel D Barrup [id number] Miguel Angel D Barrup 06/28/2024 1 [facility] ([employer]) Miguel Angel D Barrup [id number] Miguel Angel D Barrup 07/15/2024 1 [facility] ([employer]) Miguel Angel D Barrup [id number] Miguel Angel D Barrup 07/22/2024 1 [facility] ([employer]ICA[employer]) Miguel Angel D Barrup [id number] Miguel Angel D Barrup Notes Date Note Type Note Provider Name and Address Organization Details Recorded Time 03/05/2024 text/html Pt. 33-M, with P MH notable for cognitive impairment, left hemiparesis, cortical blindness, urine incontinence, dysarthria, and epilepsy. here w/care givers Aamir, here for CPE. He has had some [...] cough, wheezing.Cardiac: Pt. denies any chest pain,: electrical calibrator endorses baseline of frequencyMSK: Pt. denies any MSK complaints.Skin:Skin improved over prior per caregiver reportNeuro: No loss of function apparent to caregiver in ambulation status.Endocrine: Caregiver denies new pattern of cold or hot manifestation in patientHematologic: No frequent bleeding, epistaxis, easy bruisability reported by caregiver. NAKIA SANTOS [address], [place], [address], [facility]. 03/05/2024 12:22:56 05/04/2024 text/html Patient with pos sible abscess/boil to posterior R thigh, first noticed 2 nights ago, has become larger is more tender.Does have a small head with no visible drainage per caregivers at residential.Has had no fevers.Has had past skin infection to axilla. No recent antibiotic use. No history of drug resistant skin infections. VENTURA GANNON, [facility] [address], [place], [address], [facility]. 05/04/2024 16:17:55 06/28/2024 text/html [...] candidate though. NAKIA SANTOS [address], [place], [address], [facility]. 06/29/2024 17:55:30 07/15/2024 text/html Pt. [...] development disability. NAKIA SANTOS [address], [place], [address], [facility]. 07/15/2024 10:33:24 07/22/2024 text/html Pt, 34-M, her [...] skin excoriations. NAKIA SANTOS [address], [place], [address], [facility]. 07/23/2024 05:45:07
--- OUTSIDE RECORDS SUMMARY | 2024-08-03 13:47 | XMS_ITS | Clinical Summary ---
Author Organization [facility] Address [address] [place] [address] Care Team Providers Care Manager Interventional Name Role Phone Ren Vaz MD Primary Care Provider [phone] Allergies Active Allergy Reactions Criticality Noted Date [...] original. 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); History of pituitary surgery; Secondary adrenal insufficiency (HCC-CMS); 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HCC-CMS); Craniopharyngioma (HCC-CMS); 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HCC-CMS); Secondary hypothyroidism 06/21/[address] [id number] Wilder Zaidi, Other (Needs permission to discuss); [...] 10/01/2024 13:40 EDT Office Visit [facility] Endocrinology - [facility] [address] [place] [address] Wilder Zaidi, [address] [facility] [address] [place] [address] Health Maintenance Due Date Last Done Comments Hepatitis B Vaccine (1 of 3 - 19+ 3-dose series) 2009 COVID-19 Vaccine ( season) 2024, 02/26/2022 Hepatitis C Screen Completed 07/30/2019, 02/26/2005 Medical Devices Implanted Type Area Emergency Telecommunications Dispatcher Device Identifier Shelf Expiration Date Model / Serial / Lot Clip Implant On 10/12/04 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 Oral Hayes,Gr lizabeth Involved. These Are Mri Safe To 3t [...] 0.8 - 2.2 ng/dL 07/06/2024 18:52 EST [facility] Blood VENOUS BLOOD / Unknown Venipuncture / Unknown 07/06/2024 14:44 EST 07/06/2024 14:45 EST us Wilder Zaidi DO CHEMISTRY & BLOOD GAS ORDERABLES Final Result [facility] [address] [place] [address] * HEMOGLOBIN A1C (07/06/2024 14:44 EST) Hemoglobin A1c 4.9 <5.7 % 07/06/2024 20:54 EST [facility] Comment: Glycemic Status References: Normal: ??<5.7% Pre-Diabetes: ??5.7% - 6.4% Diagnostic of Diabetes: ??> or = 6.5% (if confirmed) Est Avg Glucose 94 mg/dL 20:54 [facility] Comment:The eAG represents t he A1c result expressed as average glucose in mg/dL. Blood VENOUS BLOOD / Unknown Venipuncture / Unknown 07/06/2024 14:44 EST 07/06/2024 14:45 EST us Wilder Zaidi DO CHEMISTRY & BLOOD GAS ORDERABLES Final Result Performing Organization Address City/State/[facility] Co de Phone Number [facility] [address] [place] [address] * BASIC METABOLIC PANEL (BMP) (07/06/2024 14:44 EST) Sodium 142 136 - 145 mmol/L 07/06/2024 18:31 [facility] Potassium 4.3 3.5 - 5.0 mmol/L 07/06/2024 18:31 [facility] Chloride 107 96 - 110 mmol/L 07/06/2024 18:31 [facility] CO2 Total 22 22 - 32 mmol/L 07/06/2024 18:31 [facility] Anion Gap 13 5 - 14 mmol/L 07/06/2024 18:31 [facility] Glucose 87 70 - 99 mg/dl 07/06/2024 18:31 [facility] Calcium 9.2 8.5 - 10.5 mg/dL 07/06/2024 18:31 [facility] BUN 17 10 - 26 mg/dL 07/06/2024 18:31 [facility] Creatinine 0.95 0.66 - 1.25 mg/dL 07/06/2024 18:31 [facility] eGFR 108 >60 mL/min/1.73 m2 07/06/2024 18:31 [facility] Blood VENOUS BLOOD / Unknown Venipuncture / Unknown 07/06/2024 14:44 EST 07/06/2024 14:45 EST us Wilder Zaidi DO CHEMISTRY & BLOOD GAS ORDERABLES Final Result [facility] [address] [place] [address] * HEPATITIS C AB W REFLEX TO HCV RNA BY PCR (07/30/2019 11:59 EST) Hep C Antibody Negative Negative 08/02/2019 11:26 EST [facility] Blood VENOUS BLOOD / Unknown 07/30/2019 11:59 EST 07/30/2019 16:45 EST Provider Unknown MD CHEMISTRY & BLOOD GAS ORDERA BLES Final Result Performing Organization Address City/[facility]/ZIP Co de Phone Number [facility] [address] [place] [address] from Last 3 Months or Most Recently Relevant to Health Maintenance Insurance MEDICAID [facility] [place] Advance Directives For more information, please contact: [phone] Documents on File Type Date Recorded Patient Chemical Unit Operator Expl anation Guardianship 06/25/2024 9:50 [address] [place] [address], [facility] Appointment of Gu * Full Code (Latest Code Status on File) Date Activated Date Inactivated Comments 02/24/2011 22:28 02/25/2011 20:41 Care Teams Manager Interventional Relationship Specialty Start Date End Date Ren Vaz [place] [place] [address] PCP - General 09/30/18
--- OUTSIDE RECORDS SUMMARY | 2024-08-03 13:47 | XMS_ITS | Encounter Summary ---
Author Organization [facility] Address [address] [place] [address] Care Team Providers Care Supervisor Wire Rope Fabrication Name Role Phone Emilee Cody MD Primary Care Provider + Reason for Visit * Reason Onset Date Comments Results 06/02/2017 Encounter Details Date Type Department Care Team (Late st Contact Info) Description 06/02/2017 Telephone [facility] - [facility] [address] [place] [address] Wilder Zaidi DO [address] [facility] [address] [place] [address] Results Social History Tobacco Use [...] Encounter - Jennifer Au RN - 06/03/2017 [id number] EST Relayed to production operations manager of [facility] the sodium results of 05/28 with no [...] Description 10/01/2024 13:40 EDT Office Visit [facility] [address] [place] [address] Wilder Zaidi DO [address] [facility] [address] [place] [address] documented as of this encounter Visit Diagnoses Not on filedocumented in this encounter Care Teams Supervisor Wire Rope Fabrication Relationship Specialty Start Date End Date Emilee Cody MD [address] [place] [address] PCP - General 03/15/16 09/29/18 documented as of this encounter
--- OUTSIDE RECORDS SUMMARY | 2024-08-03 13:47 | XMS_ITS | Encounter Summary ---
Author Organization [facility] Address [address] [place] [address] Care Team Providers Care Tabulating Clerk Name Role Phone Ren Vaz MD Primary Care Provider [phone] Reason for Visit * Reason Onset Date Comments Home Health 01/12/2020 discuss other la b draws and flexeril Encounter Details Date Type Department Care Team (Late st Contact Info) Description 01/12/2020 Telephone [facility] Endocr[facility]ology - [facility] [address] [place] [address] Wilder Zaidi, [address] [facility] [address] [place] [address] Home Health (discuss other lab [...] Robin Baird - 01/12/2020 1449 EDT [facility] RN She megan labs today that were ordered. Ladonna doesn't know what else Miguel Angel would need [facility]. Also maybe In need for flexeril and should patient go through PCP for that . Please call to discuss. documented in this encounter Plan of Treatment Upcoming Encounters Date Type Department Care Team (Late st Contact Info) Description 10/01/2024 13:40 EDT Office Visit [facility]ology - [facility] [address] [place] [address] Wilder Zaidi, DO [address] [facility] [address] [place] [address] documented as of this encounter Visit Diagnoses Not on filedocumented in this encounter Care Teams Tabulating Clerk Relationship Specialty Start Date End Date [place] [address] PCP - General 09/30/18 documented as of this encounter
--- OUTSIDE RECORDS SUMMARY | 2024-08-03 13:47 | XMS_ITS | Encounter Summary ---
Author Organization [facility] Address [address] [place] [address] Care Team Providers Care Building Cleaner Name Role Phone Ren Vaz MD Primary Care Provider [phone] Encounter Details Date Type Department Care Team (Late st Contact Info) Description 07/30/2019 Lab Requisition [facility] Pathology & Laboratory Medicine - [address] [address] Unknown, Provider, Social History Tobacco Use Types [...] EDT Office Visit [facility] Endocrinology - [place] [address] [place] [address] Wilder Zaidi, DO [address] [facility] [address] [place] [address] documented as of this encounter Procedures Procedure Name Priority Date/Time Associated Diagnosis Comments HEPATITIS C AB W REFLEX TO HCV RNA BY PCR Routine 07/30/2019 11:59 EST HEPATITIS B SURFACE ANTIGEN Routine 07/30/2019 11:59 EST documented in this encounter Results * HEPATITIS B SURFACE ANTIGEN (07/30/2019 11:59 EST) Hep B Surface Ag Negative Negative 08/02/2019 9:49 EST [facility] Blood VENOUS BLOOD / Unknown 07/30/2019 11:59 EST 07/30/2019 16:46 EST us Provider Unknown CHEMISTRY & BLOOD GAS ORDERA BLES Final Result Performing Organization Address City/[facility]/ZIP Co de Phone Number [facility] [address] [place] [address] * HEPATITIS C AB W REFLEX TO HCV RNA BY PCR (07/30/2019 11:59 EST) Hep C Antibody Negative Negative 08/02/2019 11:26 EST [facility] Blood VENOUS BLOOD / Unknown 07/30/2019 11:59 EST 07/30/2019 16:45 EST us Provider Unknown CHEMISTRY & BLOOD GAS ORDERA BLES Final Result Performing Organization Address City/[facility]/ZIP Co de Phone Number [facility] [address] [place] [address] documented in this encounter Visit Diagnoses Not on filedocumented in this encounter Care Teams Building Cleaner Relationship Specialty Start Date End Date [place] [address] PCP - General 09/30/18 documented as of this encounter
--- OUTSIDE RECORDS SUMMARY | 2024-08-03 13:47 | XMS_ITS | Encounter Summary ---
Author Organization [facility] Address [address] [place] [address] Care Team Providers Care Commercial Real Estate Agent Name Role Phone Emilee Cody MD Primary Care Provider + Reason for Visit * Reason Onset Date Comments Prior Auth, Medication 08/05/2017 Encounter Details Date Type Department Care Team (Late st Contact Info) Description 08/05/2017 Telephone [facility] Endocrinology - [address] [phone] Emilee Cody MD [address] [place] [address] Prior Auth, Medication Social History Tobacco [...] for Levothyroxine 150 mcg tablet. PA #: [id number] Dates: 08/07/2017 - 08/07/2018 Tracking #: [id number] Qty/Days Supply Restrictions: Called pharmacy to provide approval details. * Telephone Encounter - Lucía Bundy - 08/07/2017 1608 EST Completed [place] Medicaid [place] request form for levothyroxine blister pack and e-filed using [facility] to initiate this process. Response time is 3-5 days. To f/u, call [phone] * Telephone Encounter - Kristin Osman - 08/05/2017 1904 EST Rec sherrill from [facility] [address] [place] [address] Rx # [id number] Every Day /Blisster Pack LEVOTHYROXINE 150 MCG TAB QTY 30 PA NEEDED documented in this encounter Plan of Treatment Upcoming Encounters Date Type Department Care Team (Late st Contact Info) Description 10/01/2024 13:40 EDT Office Visit [facility] Endocrinology - [address] [phone] Wilder Zaidi, DO [address] [facility] [address] [place] [phone] documented as of this encounter Visit Diagnoses Not on filedocumented in this encounter Care Teams Commercial Real Estate Agent Relationship Specialty Start Date End Date Emilee Cody MD [address] [place] [address] PCP - General 03/15/16 09/29/18 documented as of this encounter
--- OUTSIDE RECORDS SUMMARY | 2024-08-03 13:47 | XMS_ITS | Encounter Summary ---
Author Organization [facility] Address [address] [place] [address] Care Team Providers Care Piece Dyer Name Role Phone Ren Vaz MD Primary Care Provider [phone] Reason for Visit * Reason Comments Other Secondary adrenal in sufficiency * Referral (Routine) - Receiving Office to Obtain Authorization Specialty Diagnoses / Procedures Referred By Duyen bui Referred To Contact Endocrinology Diagnoses 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HCC-CMS) Ren Vaz MD [address] [place] [address] [place] [address] Phone: tel: fax: [facility] Endocrinology [address] [address] Phone: tel: fax: Referral ID Status Reason Start Date Expiration Date Visits Requested Visits Authorized [id number] Receiving Office to Obtain Authorization 1 1 Encounter Details Date Type Department Care Team (Latest Contact Info) Description 03/06/2023 15:00 EDT Office Visit [facility] Endocrinology [address] [address] Jono Sanchez MD [address] [place] [phone] 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HCC-CMS) (Primary Dx); Secondary adrenal insufficiency (HCC-CMS); 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HCC-CMS); Gonadotropin deficiency ([facility]) Social History Tobacco Use Types Packs/Day [...] transferred on november 2020 to a different f[facility]. No hospitalization No new med Current med [...] Visit [facility] Endocrinology - [facility] [address] [place] [address] Wilder Zaidi, 62 [facility] [address] [place] [address] documented as of this encounter [...] 03/03/2023 added in this encounter Care Teams Piece Dyer Relationship Specialty Start Date End Date Ren Vaz MD [facility] [place] [address] PCP - General 09/30/18 documented as of this encounter
--- OUTSIDE RECORDS SUMMARY | 2024-08-03 13:47 | XMS_ITS | Encounter Summary ---
Author Organization [facility] Address [address] [place] [address] Care Team Providers Care Fiber Machine Tender Name Role Phone Ren Vaz MD Primary Care Provider [phone] Reason for Visit * Reason Comments Pituitary Abnormality Encounter Details Date Type Department Care Team (Latest Contact Info) Description 11/26/2019 11:00 EDT Telemedicine [facility] Endocrinology - [facility] [address] [place] [address] Wilder Zaidi, DO 62 [facility] [address] [place] [address] Secondary adrenal insufficiency (HCC-CMS) (Primary [...] currently living in his own home in [place], [place]. He has 2 caretakers are with [...] imtiaz. Unfortunately, Miguel Angel was hospitalized at [facility] from 09/02/2017 until 03/12/2018 due to [...] as his follow- up endocrinology visit at [facility]. ?? With regards to his secondary [...] the Centers for Disease Control and The [place] Department of Health we are practicing social distancing to protect both our patients and our providers during the COVID-19 pandemic. ??LABORATORY DATA: 1. Pending at time of dictation STUDIES: 1. Repeat DEXA scan performed on 06/21/2019 at [facility] showed a Z score of -2.3 [...] receive his endocrine care here at the [facility] despite living in [place]. However, if he is hospitalized he will likely be sent to [facility] and I be happy to coordinate [...] Office Visit [facility] Endocrinology - [address] [address] Wilder Zaidi DO [address] [place] [address] [address] [place] [phone] documented as of this encounter Visit Diagnoses Diagnosis Secondary adrenal insufficiency (HCC-CMS)- Primary Glucocorticoid deficiency 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HCC-CMS) Diabetes insipidus 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HCC-CMS) Panhypopituitarism Gonadotropin deficiency (HCC-CMS) Other anterior pituitary disorders Secondary hypothyroidism Other specified acquired hypothyroidism 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HCC-CMS) Pituitary dwarfism Fracture Closed fracture of unspecified bone documented in this encounter Care Teams Fiber Machine Tender Relationship Specialty Start Date End Date Ren Vaz MD [address] [address] PCP - General 09/30/18 documented as of this encounter
--- OUTSIDE RECORDS SUMMARY | 2024-08-03 13:47 | XMS_ITS | Encounter Summary ---
Author Organization [facility] Address [address] [place] [address] Care Team Providers Care Precision Optical Goods Worker Name Role Phone Emilee Cody MD Primary Care Provider + Reason for Visit * Reason Onset Date Comments Appointment Related 07/14/2018 cancelled 07/15 appt Encounter Details Date Type Department Care Team (Late st Contact Info) Description 07/14/2018 Telephone [facility] Endocrinology - [facility] [address] [place] [address] Wilder Zaidi DO [address] [facility] [address] [place] [address] Appointment Related (cancelled 07/15 appt) [...] Violet Artis - 07/14/2018 1703 EST Patients casework specialist called to cancel an appt for 07/[address] Zaidi as the patient also had an appt at [facility] Endocrinology for the same time documented in this encounter Plan of Treatment Upcoming Encounters Date Type Department Care Team (Late st Contact Info) Description 10/01/2024 13:40 EDT Office Visit [facility] Endocrinology - [facility] [address] [place] [address] Wilder Zaidi, [address] [facility] [address] [place] [address] documented as of this encounter Visit Diagnoses Not on filedocumented in this encounter Care Teams Prec[employer] Optical Goods Worker Relationship Specialty Start Date End Date Emilee Cody MD [address] [place] [address] PCP - General 03/15/16 09/29/18 documented as of this encounter
--- OUTSIDE RECORDS SUMMARY | 2024-08-03 13:47 | XMS_ITS | Encounter Summary ---
Author Organization [facility] Address [address] [place] [address] Care Team Providers Care Carpenter Supervisor Wooden Ship Name Role Phone Ren Vaz MD Primary Care Provider Reason for Visit * Reason Onset Date Comments Follow-up 10/20/2023 Paperwork request 10/20/2023 Encounter Details Date Type Department Care Team (Late st Contact Info) Description 10/20/2023 Telephone [facility] Endocrinology - [address] [address] Day Littlejohn MD PhD [address] [place] [address] [place] [address] Follow-up; Paperwork request Social History Tobacco [...] Printed and faxed MICKEY notes to [facility] Routing to Dr. Littlejohn re: f/u about DXA and head CT scan results. AMVIS FRANCO RN 10/21/2023 13:52 * Telephone Encounter [...] Office Visit [facility] Endocrinology - [place] [address] [place], [place] [phone] Wilder Zaidi, DO [address] [place] [address] documented as of this encounter Visit Diagnoses Not on filedocumented in this encounter Care Teams Carpenter Supervisor Wooden Ship Relationship Specialty Start Date End Date Ren Vaz MD [facility] [place] [address] PCP - General 09/30/18 documented as of this encounter
--- OUTSIDE RECORDS SUMMARY | 2024-08-03 13:47 | XMS_ITS | Encounter Summary ---
Author Organization [facility] Address [address] [place] [address] Care Team Providers Care Casing Trimmer Name Role Phone Ren Vaz MD Primary Care Provider [phone] Reason for Referral * (Routine/Next Available) - Receiving Office to Obtain Authorization Specialty Diagnoses / Procedures Referred By Contac t Referred To Contact Procedures CT OUTSIDE IMAGES HEAD Imaging, External Referral ID Status Reason Start Date Expiration Date Visits Requested Visits Authorized [id number] Receiving Office to Obtain Authorization 10/03/2023 1 1 Reason for Visit * (Routine/Next Available) - Receiving Office to Obtain Authorization Specialty Diagnoses / Procedures Referred By Contac t Referred To Contact Procedures CT OUTSIDE IMAGES HEAD Imaging, External Referral ID Status Reason Start Date Expiration Date Visits Requested Visits Authorized [id number] Receiving Office to Obtain Authorization 10/03/2023 1 1 Encounter Details Date Type Department Care Team (Latest Contact Info) Description 10/03/2023 15:30 EDT - 10/03/2023 23:59 EDT Hospital Encounter [facility] Secondary Reads [place] Discharge Disposition: Home [...] [facility] Endocrinology - [place] [address] [place] [address] Wilder Zaidi, DO [address] [place] [address] documented as of this [...] on filedocumented in this encounter Care Teams Casing Trimmer Relationship Specialty Start Date End Date [place] [address] PCP - General 09/30/18 documented as of this encounter
--- OUTSIDE RECORDS SUMMARY | 2024-08-03 13:47 | XMS_ITS | Encounter Summary ---
Author Organization [facility] Address [address] [place] [address] Care Team Providers Care Clerical Warehouseman Name Role Phone Ren Vaz MD Primary Care Provider [phone] Encounter Details Date Type Department Care Team (Late st Contact Info) Description 07/30/2019 Lab Requisition [facility] Pathology & Laboratory Medicine - [address] [address] Unknown, Provider, Social History Tobacco Use Types [...] 10/01/2024 13:40 EDT Office Visit [facility] Endocrinology - [place] [address] [facility] [address] [place], [place] [phone] Wilder Zaidi, [address] [facility] [address] [place] [address] documented as of this encounter Procedures Procedure Name Priority Date/Time Associated Diagnosis Comments CALCIUM, IONIZED Routine 07/30/2019 11:5 9 EST documented in this encounter Results * CALCIUM, IONIZED (07/30/2019 11:59 EST) Calcium, Ionized 1.12 1.12 - 1.32 mmol/L 07/30/2019 16:51 EST [facility] Comment:Testing performed on heparinized plasma. Results may be biased 5% lower than that of whole blood. Blood VENOUS BLOOD / Unknown 07/30/2019 11:59 EST 07/30/2019 16:41 EST us Provider Unknown CHEMISTRY & BLOOD GAS ORDERA BLES Final Result Performing Organization Address City/State/[facility] Co de Phone Number [facility] [address] [place] [address] documented in this encounter Visit Diagnoses Not on filedocumented in this encounter Care Teams Clerical Warehouseman Relationship Specialty Start Date End Date [place] [address] PCP - General 09/30/18 documented as of this encounter
--- OUTSIDE RECORDS SUMMARY | 2024-08-03 13:47 | XMS_ITS | Encounter Summary ---
Author Organization [facility] Address [address] [place] [address] Care Team Providers Care Rip Tailer Name Role Phone Ren Vaz MD Primary Care Provider [phone] Reason for Visit * Reason Onset Date Comments Coordination Of Care 01/05/2020 Encounter Details Date Type Department Care Team (Late st Contact Info) Description 01/05/2020 Telephone [facility] Endocrinology - [facility] [address] [place] [address] Wilder Zaidi, 62 [facility] [address] [place] [address] Coordination Of Care Social History [...] EDT Electronically faxed requested information back to [facility]. * Telephone Encounter - Carmel Muniz - 01/05/2020 0908 EDT Raphael with [facility] following up on the referral. They have received it but need a [facility] problem list as well. Please fax to [phone]. documented in this encounter Plan of Treatment Upcoming Encounters Date Type Department Care Team (Late st Contact Info) Description 10/01/2024 13:40 EDT Office Visit [facility] Endocrinology - [facility] [address] [place] [address] Wilder Zaidi, 62 [facility] [address] [place] [address] documented as of this encounter Visit Diagnoses Not on filedocumented in this encounter Care Teams Rip Tailer Relationship Specialty Start Date End Date Ren Vaz MD [facility] [place] [address] PCP - General 09/30/18 documented as of this encounter
--- OUTSIDE RECORDS SUMMARY | 2024-08-03 13:47 | XMS_ITS | Encounter Summary ---
Author Organization [facility] Address [address] [place] [address] Care Team Providers Care Supervisor Wheel Shop Name Role Phone Ren Vaz MD Primary Care Provider [phone] Reason for Visit * Reason Onset Date Comments Labs Only 03/03/2019 Encounter Details Date Type Department Care Team (Late st Contact Info) Description 03/03/2019 Telephone [facility] Endocrinology - [facility] [address] [place] [address] Wilder Zaidi, DO [address] [facility] [address] [place] [address] Labs Only Social History Tobacco [...] - Carlos Alberto Benitez RN - 03/03/2019 6091 EDT Called and left message for Evelyn relaying Dr. Zaidi's message below: Would have electrolytes drawn every 3 months with a as needed order if there is any significant change in behavior Standing lab orders for electrolytes faxed to [facility] as requested for Electrolytes as requested. Labs printed and faxed to [facility] * Telephone Encounter - Wilder Zaidi Do - 03/03/2019 9208 EDT Would have electrolytes drawn every 3 months with a as needed order if there is any significant change in behavior * Telephone Encounter - Alicia Chi - 03/03/2019 1422 EDT Per Evelyn, please fax lab orders to [facility] [phone]. 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
--- OUTSIDE RECORDS SUMMARY | 2024-08-03 13:47 | XMS_ITS | Encounter Summary ---
Author Organization [facility] Address [address] [place] [address] Care Team Providers Care Business Manager College [employer] Name Role Phone Ren Vaz MD Primary Care Provider [phone] Reason for Visit * Reason Onset Date Comments Coordination Of Care 08/03/2024 Labs Only 08/03/2024 Encounter Details Date Type Department Care Team (Late st Contact Info) Description 08/03/[address] [facility] Endocrinology - [facility] [address] [place] [address] Wilder Zaidi, [address] [facility] [address] [place] [address] Coordination Of Care; Labs Only Social History Tobacco Use Types [...] encounter Miscellaneous Notes * Telephone Encounter - Aisha Villalta RN - 08/03/[address] Zaidi ordered printed and faxed to Doris Tate at [facility]. Ask lab be drawn before 08/06/24 and fasting not required. Aisha Villalta, RN * Telephone Encounter - Kristin Antonio - 08/03/2024 0842 EST DORIS TATE [phone] From [facility] Calling seeking coordination in RE to being notified that patient requires a redrawn of their SODIUM Aware that patient has lab draw scheduled 08/06/24 [facility] Seeking order and parameters of request, including time frame of expected completion date FAX [phone] documented in this encounter Plan of Treatment Upcoming Encounters Date Type Department Care Team (Late st Contact Info) Description 10/01/2024 13:[address] [facility] Endocrinology - [facility] [address] [place], [place] [phone] Wilder Zaidi, [address] [facility] [address] [place] [address] documented as of this encounter Visit Diagnoses Not on filedocumented in this encounter Care Teams Business Manager [employer] Relationship Specialty Start Date End Date Ren [place] [address] PCP - General 09/30/18 documented as of this encounter
--- OUTSIDE RECORDS SUMMARY | 2024-08-03 13:47 | XMS_ITS | Encounter Summary ---
Author Organization [facility] Address [address] [place] [address] Care Team Providers Care Intelligence Support Officer Name Role Phone Ren Vaz MD Primary Care Provider [phone] Reason for Visit * Reason Onset Date Comments Medication Questions 11/09/2020 Encounter Details Date Type Department Care Team (Late st Contact Info) Description 11/09/2020 Telephone [facility] Endocrinology - [facility] [address] [place] [address] Wilder Zaidi, [address] [facility] [address] [place] [address] Medication Questions Social History Tobacco [...] 11/09/2020 1432 EDT Call to: [employer] manager wholesale Relayed Dr. Zaidi's message: Wilder Zaidi DO [...] - 11/09/2020 1109 EDT Caller is the employment evaluator/case manager for patient, advising that the patient [...] Office Visit [facility] Endocrinology - [facility] [address] [place] [address] Wilder Zaidi, [address] [facility] [address] [place] [address] documented as of this encounter Visit Diagnoses Not on filedocumented in this encounter Care Teams Intelligence Support Officer Relationship Specialty Start Date End Date Ren Vaz MD [place] [address] PCP - General 09/30/18 documented as of this encounter
--- OUTSIDE RECORDS SUMMARY | 2024-08-03 13:47 | XMS_ITS | Encounter Summary ---
Author Organization [facility] Address [address] [place] [address] Care Team Providers Care Assistant Professor Of Economics Name Role Phone Ren Vaz MD Primary Care Provider [phone] Reason for Visit * Reason Onset Date Comments Appointment Related 11/19/2019 Encounter Details Date Type Department Care Team (Late st Contact Info) Description 11/19/2019 Telephone [facility] Endocrinology - [facility] [address] [place] [address] Wilder Zaidi, DO [address] [facility] [address] [place] [address] Appointment Related Social History Tobacco [...] Tomasa Merrill - 11/19/2019 1347 EDT 11/19/2019- [facility] for patient to call back to change 11/26/2019 Dr. Zaidi appointment to a televideo visit. documented in this encounter Plan of Treatment Upcoming Encounters Date Type Department Care Team (Late st Contact Info) Description 10/01/2024 13:40 EDT Office Visit [facility] Endocrinology - [address] [address] Wilder Zaidi, [address] [place] [address] [address] [place] [phone] documented as of this encounter Visit Diagnoses Not on filedocumented in this encounter Care Teams Assistant Professor Of Economics Relationship Specialty Start Date End Date Ren Vaz MD [facility] [place] [address] PCP - General 09/30/18 documented as of this encounter
--- OUTSIDE RECORDS SUMMARY | 2024-08-03 13:47 | XMS_ITS | Encounter Summary ---
Author Organization [facility] Address [address] [place] [address] Care Team Providers Care Curtain Stitcher Name Role Phone Ren Vaz MD Primary Care Provider [phone] Reason for Visit * Reason Comments Pituitary Abnormality Encounter Details Date Type Department Care Team (Latest Contact Info) Description 10/01/2018 13:20 EDT Office Visit [facility] Endocrinology - [facility] [address] [place] [address] Wilder Zaidi, DO [address] [facility] [address] [place] [address] 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HCC-CMS) (Primary Dx); Primary [...] directly via e-mail with any scheduling issues ([email or web address]) documented in this encounter Progress Notes * [...] currently living in his own home in [place], [place]. He has 2 caretakers are with him 24 hours a day and administer all of his medications. Appears to be doing extremely well. This is the most interactive I seen Miguel Angel in any visit in the manyyears I been taking care of him. Unfortunately, Miguel Angel was hospitalized at [facility] from 09/02/2017 until 03/12/2018 due to [...] as his follow- up endocrinology visit at [facility]. ?? With regards to his secondary [...] unchanged. No need to stress dose. His director ehs was able to articulate how and when [...] receive his endocrine care here at the [facility] despite living in [place]. However, if he is hospitalized he will likely be sent to [facility] and I be happy to coordinate with our endocrinology group as needed. documented in this encounter Plan of Treatment Upcoming Encounters Date Type Department Care Team (Late st Contact Info) Description 10/01/2024 13:40 EDT Office Visit [facility] Endocrinology - [facility] [address] [place], [place] [id number] Wilder Zaidi, [address] [facility] [address] [place] [address] documented as of this encounter [...] 07/06/2024 added in this encounter Care Teams Curtain Stitcher Relationship Specialty Start Date End Date Ren Vaz MD [address] [place] [address] PCP - General 09/30/18 documented as of this encounter
--- OUTSIDE RECORDS SUMMARY | 2024-08-03 13:47 | XMS_ITS | Encounter Summary ---
Author Organization [facility] Address [address] [place] [address] Care Team Providers Care Pigment Pumper Name Role Phone Emilee Cody MD Primary Care Provider + Ren Vaz MD Primary Care Provider [phone] Encounter Details Date Type Department Care Team (Late st Contact Info) Description 03/15/2018 Historical Results Only [facility] - Main [place] [address] [place] [address] Delfino Gallegos MD [address] [place] [address] [place] [address] Social History Tobacco Use Types Packs/Day [...] Visit [facility] Endocrinology - [facility] [address] [place] [address] Wilder Zaidi, 62 [facility] [address] [place] [address] documented as of this encounter Procedures Procedure Name Priority Date/Time Associated Diagnosis Comments SODIUM Routine 03/15/2018 16:50 EDT documented in this encounter Results * SODIUM (03/15/2018 16:50 EDT) Sodium 136 136 - 145 mEq/L 03/17/2018 10:41 EDT [facility] Comment: A waiver of liability has been signed and scanned into the patient's medical record. 03/15/2018 16:5 0 EDT 03/16/2018 10:05 EDT us Delfino Gallegos MD CHEMISTRY & BLOOD GAS OR DERABLES Final Result [facility] documented in this encounter Visit Diagnoses Not on filedocumented in this encounter Care Teams Pigment Pumper Relationship Specialty Start Date End Date Emilee Cody MD [address] [place] [address] PCP - General 03/15/16 09/29/18 Ren Vaz MD [facility] [place] [address] PCP - General 09/30/18 documented as of this encounter
--- OUTSIDE RECORDS SUMMARY | 2024-08-03 13:47 | XMS_ITS | Encounter Summary ---
Author Organization [facility] Address [address] [place] [address] Care Team Providers Care Modeling Instructor Name Role Phone Ren Vaz MD Primary Care Provider [phone] Encounter Details Date Type Department Care Team (Late st Contact Info) Description 08/09/2019 Lab Requisition [facility] Pathology & Laboratory Medicine - [facility] [address] [place] [address] Mary Jo Eldridge, DO [address] [place], [place] [id number] Vomiting, unspecified; Adult hypertrophic pyloric stenosis; Unspecified [...] Office Visit [facility] Endocrinology - [facility] [address] [facility] [place] [address] Wilder Zaidi, DO [address] [facility] [address] [place] [address] documented as of this [...] of consciousness of unspecified duration, initial encounter ([facility]) Other gastritis without bleeding documented in [...] Organisms compatible with sarcina noted. 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 Clinical correlation is recommended. 08/18/2019 12:07 [facility] Clinical History Gastric outlet obstruction 08/18/2019 12:07 [facility] Attestation By the signature below, the attending physician certifies that they have personally conducted a gross and/or microscopic examination of the described specimens and rendered or confirmed the above diagnosis. 08/18/2019 12:07 [facility] at 1207 Gross Description [...] B1. Candice Anum 08/09/2019 16:08 08/18/2019 12:07 [facility] Scanned Images 08/18/2019 12:07 [facility] Tissue ENTIRE STOMACH / Unknown 08/08/2019 14:49 EST 08/09/2019 15:52 EST Tissue specimen (specimen) STOMACH STRUCTURE / Unknown 08/08/2019 14:49 EST 08/09/2019 15:52 EST us Mary Jo Eldridge DO PATHOLOGY ORDERABLES Final Re sult [facility] [address] [place] [address] documented in this encounter Visit Diagnoses Diagnosis Vomiting, unspecified Adult hypertrophic pyloric stenosis Acquired hypertrophic pyloric stenosis Unspecified convulsions ([facility]) 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 Cramp and spasm Gastro-esophageal reflux disease without esophagitis Esophageal reflux Diabetes insipidus ([facility]) Diabetes insipidus Fever, unspecified Other specified health status Transient alteration of awareness Unspecified intracranial injury with loss of consciousness of unspecified duration, initial encounter ([facility]) Other gastritis without bleeding documented in this encounter Care Teams Modeling Instructor Relationship Specialty Start Date End Date Ren Vaz MD [address] [place] [address] PCP - General 09/30/18 documented as of this encounter
--- OUTSIDE RECORDS SUMMARY | 2024-08-03 13:47 | XMS_ITS | Encounter Summary ---
Author Organization 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) Procedures SODIUM Wilder Zaidi DO [address] [facility] [address] [place] [address] Phone: tel: fax: Referral ID Status Reason Start Date Expiration Date V isits Requested Visits Authorized [id number] New Request 07/06/2024 4 4 Reason for Visit * Reason Comments Adrenal Gland Problem Encounter Details Date Type Department Care Team (Latest Contact Info) Description 07/06/2024 13:40 EST Office Visit [facility] Endocrinology - [facility] [address] [place] [address] Wilder Zaidi DO [address] [facility] [facility] [address] [place] [address] 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); History of pituitary surgery; Secondary adrenal insufficiency (HCC-CMS); 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HCC-CMS); Craniopharyngioma (HCC-CMS); 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 He is accompanied by his legal guardian Bettina and a sales service representative from his assisted named Ladonna. Miguel Angel is currently living in a assisted where his medications are distributed to him and they maintain a strict fluid restriction. Patient has been followed by Dr. Littlejohn but would like to switch back to this provider. I have been taking care of this provider for many years up until the pandemic where he seemed to somehow get off my schedule. Unfortunately, Miguel Angel was hospitalized at [facility] from June 14, 2024 June 21, 2024 [...] at time of discharge on 06/21/2024 at [facility] showed sodium stable at 141 ASSESSMENT: 1. 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 a. [...] on MRI as part of workup at [facility] during recent admission. There is discussion regarding spinal node versus meningioma. Patient has upcoming appointment with neurosurgery at [facility] in July 2024. 3. Osteoporosis. Patient had a DEXA scan performed on 10/03/2023 at [facility] in [place], [place]. Patient was found to have a [...] weekly for the next 4 weeks at [facility] in [place], [place]. Lab request faxed to that facility today by front office staff 10. Follow-up with me in 3 months documented in this encounter Plan of Treatment Upcoming Encounters Date Type Department Care Team (Late st Contact Info) Description 10/01/2024 13:40 EDT Office Visit [facility] Endocrinology - [address] [address] Wilder Zaidi DO [address] [place] [address] [place] [address] Scheduled Orders Name Type Priority Associated [...] 0.8 - 2.2 ng/dL 07/06/2024 18:52 EST [facility] Blood VENOUS BLOOD / Unknown Venipuncture / Unknown 07/06/2024 14:44 EST 07/06/2024 14:45 EST Wilder Zaidi DO CHEMISTRY & BLOOD GAS ORDERABLES Final Result Performing Organization Address [facility] Co de Phone Number [facility] [address] [place] [address] * HEMOGLOBIN A1C (07/06/2024 14:44 EST) Hemoglobin A1c 4.9 <5.7 % 07/06/2024 20:54 EST [facility] Comment: Glycemic Status References: Normal: ??<5.7% Pre-Diabetes: ??5.7% - 6.4% Diagnostic of Diabetes: ??> or = 6.5% (if confirmed) Est Avg Glucose 94 mg/dL 20:54 [facility] Comment:The eAG represents t he A1c result expressed as average glucose in mg/dL. Blood VENOUS BLOOD / Unknown Venipuncture / Unknown 07/06/2024 14:44 EST 07/06/2024 14:45 EST Wilder Zaidi DO CHEMISTRY & BLOOD GAS ORDERABLES Final Result Performing Organization Address [facility] Co de Phone Number [facility] [address] [place] [address] * BASIC METABOLIC PANEL (BMP) (07/06/2024 14:44 EST) Sodium 142 136 - 145 mmol/L 07/06/2024 18:31 EST [facility] Potassium 4.3 3.5 - 5.0 mmol/L 07/06/2024 18:31 [facility] Chloride 107 96 - 110 mmol/L 07/06/2024 18:31 [facility] CO2 Total 22 22 - 32 mmol/L 07/06/2024 18:31 [facility] Anion Gap 13 5 - 14 mmol/L 07/06/2024 18:31 [facility] Glucose 87 70 - 99 mg/dl 07/06/2024 18:31 [facility] Calcium 9.2 8.5 - 10.5 mg/dL 07/06/2024 18:31 [facility] BUN 17 10 - 26 mg/dL 07/06/2024 18:31 [facility] Creatinine 0.95 0.66 - 1.25 mg/dL 07/06/2024 18:31 [facility] eGFR 108 >60 mL/min/1.73 m2 07/06/2024 18:31 [facility] Blood VENOUS BLOOD / Unknown Venipuncture / Unknown 07/06/2024 14:44 EST 07/06/2024 14:45 EST Wilder Zaidi DO CHEMISTRY & BLOOD GAS ORDERABLES Final Result [facility] [address] [place], [place] [id number] documented in this encounter Visit Diagnoses Diagnosis [...] daily. added in this encounter Care Teams 2Nd Pressman Relationship Specialty Start Date End Date Ren Vaz MD [facility] [place] [address] PCP - General 09/30/18 documented as of this encounter
--- OUTSIDE RECORDS SUMMARY | 2024-08-03 13:47 | XMS_ITS | Encounter Summary ---
Author Organization [facility] Address [address] [place] [address] Care Team Providers Care Sr. Manager Marketing Name Role Phone Ren Vaz MD Primary Care Provider [phone] Reason for Referral * (Routine/Next Available) - Receiving Office to Obtain Authorization Specialty Diagnoses / Procedures Referred By Contac t Referred To Contact Procedures XR OUTSIDE IMAGES DEXA Imaging, External Referral ID Status Reason Start Date Expiration Date Visits Requested Visits Authorized [id number] Receiving Office to Obtain Authorization 10/03/2023 1 1 Reason for Visit * (Routine/Next Available) - Receiving Office to Obtain Authorization Specialty Diagnoses / Procedures Referred By Contac t Referred To Contact Procedures XR OUTSIDE IMAGES DEXA Imaging, External Referral ID Status Reason Start Date Expiration Date Visits Requested Visits Authorized [id number] Receiving Office to Obtain Authorization 10/03/2023 1 1 Encounter Details Date Type Department Care Team (Latest Contact Info) Description 10/03/2023 15:30 EDT - 10/03/2023 23:59 EDT Hospital Encounter [facility] Radiology - Main [place] [address] [place], [place] [address] Discharge Disposition: Home or Self Care Social [...] [facility] - [place] [address] [place], [place] [id number] Wilder Zaidi, DO [address] [facility] [address] [place] [address] documented as of this encounter [...] on filedocumented in this encounter Care Teams Sr. Manager Marketing Relationship Specialty Start Date End Date Ren Vaz MD [place] [address] PCP - General 09/30/18 documented as of this encounter
--- OUTSIDE RECORDS SUMMARY | 2024-08-03 13:47 | XMS_ITS | Encounter Summary ---
Author Organization [facility] Address [address] [place] [address] Care Team Providers Care Coppersmith Helper Name Role Phone Ren Vaz MD Primary Care Provider [phone] Reason for Visit * Reason Comments Hypogonadism Encounter Details Date Type Department Care Team (Latest Contact Info) Description 03/04/2024 11:00 EDT Office Visit [facility] Endocrinology - [address] [id number] Day Littlejohn MD PhD [address] [facility] [address] [place] [address] Hypopituitarism involving multiple pituitary deficiencies [...] Miguel Angel Burgos Jr. 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 100 mcg AM and 150 [...] Hypopituitarism involving multiple pituitary deficiencies ([facility]) E23.0 253.2 Since he is Hypogonadal, [...] [facility] [address] [address] Wilder Zaidi, [address] [facility] [address] [place] [address] Scheduled Orders Name Type Priority [...] 07/06/2024 added in this encounter Care Teams Coppersmith Helper Relationship Specialty Start Date End Date Ren Vaz MD [address] [place], [place] [address] [place] [address] PCP - General 09/30/18 documented as of this encounter
--- OUTSIDE RECORDS SUMMARY | 2024-08-03 13:47 | XMS_ITS | Encounter Summary ---
Author Organization [facility] Address [address] [place] [address] Care Team Providers Care Structural Analysis Engineer Name Role Phone Ren Vaz MD Primary Care Provider [phone] Reason for Visit * Reason Onset Date Comments Referral Request 01/04/2020 referral for Bl ood draw in home Encounter Details Date Type Department Care Team (Late st Contact Info) Description 01/04/2020 Telephone [facility] Endocrinology - [facility] [address] [place] [address] Wilder Zaidi, DO [address] [facility] [address] [place] [address] Referral Request (referral for Blood [...] orders from 11/26/2019 electronically faxed to : [facility] Fax number : [phone] LESLEY COURTNEY RN 01/04/2020 11:42 * Telephone Encounter - Robin Baird - 01/04/2020 0959 EDT Please send referral to [facility] for patient to have a blood draw. His Guardian is requesting he doesn't go into the hospital. He needs blood drawn by end january. . documented in this encounter Plan of Treatment Upcoming Encounters Date Type Department Care Team (Late st Contact Info) Description 10/01/2024 13:40 EDT Office Visit [facility] Endocrinology - [address] [address] Wilder Zaidi, DO [address] [facility] [address] [place] [address] documented as of this encounter Visit Diagnoses Not on filedocumented in this encounter Care Teams Structural Analysis Engineer Relationship Specialty Start Date End Date Ren Vaz MD [facility] [address] PCP - General 09/30/18 documented as of this encounter
--- OUTSIDE RECORDS SUMMARY | 2024-08-03 13:47 | XMS_ITS | Encounter Summary ---
Author Organization [facility] Address [address] [place] [address] Care Team Providers Care Mill Oiler Name Role Phone Emilee Cody MD Primary Care Provider + Ren Vaz MD Primary Care Provider [phone] Reason for Visit * Reason Onset Date Comments Medications Refill 08/07/2017 Encounter Details Date Type Department Care Team (Late st Contact Info) Description 08/07/2017 Refill [facility] [address] [place] [address] Carlito Paul MD [address] [place] [address] [address] [place] [address] Medications Refill Social History Tobacco [...] Office Visit [facility] [address] [place] [address] Wilder Zaidi DO [address] [facility] [address] [place] [address] documented as of this encounter Visit Diagnoses Not on filedocumented in this encounter Care Teams Mill Oiler Relationship Specialty Start Date End Date Emilee Cody MD [address] [place] [address] PCP - General 03/15/16 09/29/18 Ren Vaz MD [address] [place] [address] [place] [address] PCP - General 09/30/18 documented as of this encounter
--- OUTSIDE RECORDS SUMMARY | 2024-08-03 13:47 | XMS_ITS | Referral Summary ---
Author Organization [facility] Address [address] [place] [address] Care Team Providers Care Trauma Counsellor Name Role Phone Ren Vaz MD Primary Care Provider [phone] Encounters Date Type Department Care Team Description 08/03/[address] [address] Wilder Zaidi, Coordination Of Care; Labs Only 08/02/[address] [address] Wilder Zaidi, Medication Management 07/06/2024 14:30 EST Phlebotomy Only [address] [address] Phlebotomy, [facility] Endo 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HCC-CMS); Secondary hypothyroidism; 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HCC-CMS) 07/06/2024 13:40 EST Office Visit [address] [address] Wilder Zaidi, 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 2023 Discontinued HYDROCODONE/ACETA MINOPHEN (VICODIN ORAL) Take 5 mg by mouth. 2023 Discontinued testosterone (ANDROGEL) 1 % (50 mg/5 gram) gel packet Apply 5 g topically daily. 2023 Discontinued testosterone (ANDROGEL) 20.25 mg/1.25 gram (1.62 %) transdermal gel pumpIndications:P anhypopituitarism (HCC-[facility]) Apply 3 pump actuations topically daily [...] original. Patient has given permission for the [facility] to verbally discuss the following [...] of systemic steroids 024 Secondary adrenal insufficiency ([facility]) 2018 Hypopituitarism involving mu ltiple pituitary deficiencies ([facility]) 06/14/2010 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[facility]) 03/2010 Craniopharyngioma ([facility]) 06/14/2010 Gonadotropin deficiency ([facility]) 06/14/2010 Secondary hypothyroidism 06/14/2010 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 [address] [place] [address] Wilder Zaidi, DO [address] [facility] [address] [place] [address] Medical Devices Implanted Type Area Court Interpreter Device Identifier Shelf Expiration Date Model / [...] 0.8 - 2.2 ng/dL 07/06/2024 18:52 EST [facility] Blood VENOUS BLOOD / Unknown Venipuncture / Unknown 07/06/2024 14:44 EST 07/06/2024 14:45 EST us Wilder Zaidi DO CHEMISTRY & BLOOD GAS ORDERABLES Final Result [facility] [address] [place] [address] * HEMOGLOBIN A1C (07/06/2024 14:44 EST) Hemoglobin A1c 4.9 <5.7 % 07/06/2024 20:54 [facility] Comment: Glycemic Status References: Normal: ??<5.7% Pre-Diabetes: ??5.7% - 6.4% Diagnostic of Diabetes: ??> or = 6.5% (if confirmed) Est Avg Glucose 94 mg/dL 20:54 [facility] Comment:The eAG represents t he A1c result expressed as average glucose in mg/dL. Blood VENOUS BLOOD / Unknown Venipuncture / Unknown 07/06/2024 14:44 EST 07/06/2024 14:45 EST Wilder Zaidi DO CHEMISTRY & BLOOD GAS ORDERABLES Final Result Performing Organization Address [facility]/State/[facility] Co de Phone Number [facility] [address] [place], [place] [id number] * BASIC METABOLIC PANEL (BMP) (07/06/2024 14:44 EST) Pathologist [facility] Sodium 142 136 - 145 mmol/L 07/06/2024 18:31 [facility] Potassium 4.3 3.5 - 5.0 mmol/L 07/06/2024 18:31 [facility] Chloride 107 96 - 110 mmol/L 07/06/2024 18:31 [facility] CO2 Total 22 22 - 32 mmol/L 07/06/2024 18:31 [facility] Anion Gap 13 5 - 14 mmol/L 07/06/2024 18:31 [facility] Glucose 87 70 - 99 mg/dl 07/06/2024 18:31 [facility] Calcium 9.2 8.5 - 10.5 mg/dL 07/06/2024 18:31 [facility] BUN 17 10 - 26 mg/dL 07/06/2024 18:31 [facility] Creatinine 0.95 0.66 - 1.25 mg/dL 07/06/2024 18:31 EST [facility] eGFR 108 >60 mL/min/1.73 m2 07/06/2024 18:31 EST [facility] Blood VENOUS BLOOD / Unknown Venipuncture / Unknown 07/06/2024 14:44 EST 07/06/2024 14:45 EST us Wilder Zaidi DO CHEMISTRY & BLOOD GAS ORDERABLES Final Result [facility] [address] [place] [address] * HEPATITIS C AB W REFLEX TO HCV RNA BY PCR (07/30/2019 11:59 EST) Hep C Antibody Negative Negative 08/02/2019 11:26 EST [facility] Blood VENOUS BLOOD / Unknown 07/30/2019 11:59 EST 07/30/2019 16:45 EST us Provider Unknown MD CHEMISTRY & BLOOD GAS ORDERA BLES Final Result [facility] [address] [place] [address] from Last 3 Months or Most Recently Relevant to Health Maintenance Insurance MEDICAID [facility] [place] Address: [address] [place] [address] Advance Directives For more information, please contact: [phone] Documents on File Type Date Recorded Patient Manager Latin Expl anation Guardianship 06/25/2024 9:50 [address] [place] [address], [facility] Appointment of Gu * Full Code (Latest Code Status on File) Date Activated Date Inactivated Comments 02/24/2011 22:28 02/25/2011 20:41 Care Teams Trauma Counsellor Relationship Specialty Start Date End Date Ren Vaz MD [place] [address] PCP - General 09/30/18
--- OUTSIDE RECORDS SUMMARY | 2024-08-03 13:47 | XMS_ITS | Encounter Summary ---
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) Procedures Wilder Clark, DO [address] [facility] [address] [place] [address] Phone: tel: fax: Referral ID Status Reason Start Date Expiration Date V isits Requested Visits Authorized [id number] New Request 07/06/2024 4 4 Encounter Details Date Type Department Care Team (Latest Contact Info) Description 07/06/2024 14:30 EST Phlebotomy Only [facility] Endocrinology - [facility] [address] [place] [address] Phlebotomy, [facility] 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HCC-CMS); Secondary [...] Visit [facility] Endocrinology - [address] [address] Wilder Zaidi, [address] [place] [address] documented as of this encounter Procedures Procedure Name Priority Date/Time Associated Diagnosis Comments T4 FREE Routine 07/06/2024 14:44 EST Secondary hypothyroidism BASIC METABOLIC PANEL (BMP) Routine 07/06/2024 14:44 EST 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HCC-CMS) documented in this encounter Results * T4 FREE (07/06/2024 14:44 EST) T4, Free 1.4 0.8 - 2.2 ng/dL 07/06/2024 18:52 [facility] Blood VENOUS BLOOD / Unknown Venipuncture / Unknown 07/06/2024 14:44 EST 07/06/2024 14:45 EST Wilder Zaidi DO CHEMISTRY & BLOOD GAS ORDERABLES Final Result [facility] [address] [place] [address] * BASIC METABOLIC PANEL (BMP) (07/06/2024 14:44 EST) Sodium 142 136 - 145 mmol/L 07/06/2024 18:31 [facility] Potassium 4.3 3.5 - 5.0 mmol/L 07/06/2024 18:31 [facility] Chloride 107 96 - 110 mmol/L 07/06/2024 18:31 [facility] CO2 Total 22 22 - 32 mmol/L 07/06/2024 18:31 [facility] Anion Gap 13 5 - 14 mmol/L 07/06/2024 18:31 [facility] Glucose 87 70 - 99 mg/dl 07/06/2024 18:31 [facility] Calcium 9.2 8.5 - 10.5 mg/dL 07/06/2024 18:31 [facility] BUN 17 10 - 26 mg/dL 07/06/2024 18:31 [facility] Creatinine 0.95 0.66 - 1.25 mg/dL 07/06/2024 18:31 [facility] eGFR 108 >60 mL/min/1.73 m2 07/06/2024 18:31 [facility] Blood VENOUS BLOOD / Unknown Venipuncture / Unknown 07/06/2024 14:44 EST 07/06/2024 14:45 EST Wilder Zaidi DO CHEMISTRY & BLOOD GAS ORDERABLES Final Result [facility] [address] [place] [address] documented in this encounter Visit Diagnoses Diagnosis 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HCC-CMS) Diabetes insipidus Secondary hypothyroidism Other specified acquired hypothyroidism 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HCC-CMS) Panhypopituitarism documented in this encounter Care Teams Sumatra Opener Relationship Specialty Start Date End Date Ren Vaz MD [address] [place] [place] [address] PCP - General 09/30/18 documented as of this encounter
--- OUTSIDE RECORDS SUMMARY | 2024-08-03 13:47 | XMS_ITS | Encounter Summary ---
Author Organization [facility] Address [address] [place] [address] Care Team Providers Care Nuclear Plant Operator Name Role Phone Ren Vaz MD Primary Care Provider [phone] Reason for Visit * Reason Comments Pituitary Abnormality Encounter Details Date Type Department Care Team (Latest Contact Info) Description 05/26/2019 11:40 EST Office Visit [facility] Endocrinology - [facility] [address] [place] [address] Jr Salas, DO [address] [facility] [address] [place] [address] Secondary adrenal insufficiency (HCC-CMS) (Primary [...] 5. Dr. Salas to schedule DXA at [facility] documented in this encounter Progress Notes * [...] currently living in his own home in [place], [place]. He has 2 caretakers are with [...] who is visiting the home gave Miguel Agnel and imtiaz. Unfortunately, Miguel Angel was hospitalized at [facility] from 09/02/2017 until 03/12/2018 due to a [...] as his follow- up endocrinology visit at [facility]. ?? With regards to his secondary adrenal [...] receive his endocrine care here at the [facility] despite living in [place]. However, if he is hospitalized he will likely be sent to [facility] and I be happy to coordinate with our endocrinology group as needed. 8. Will obtain previous DEXA scan performed at [facility] and reorder scan. 9. Given his testosterone deficiency, secondary to insufficiency, and history of fracture. Once I have his DEXA data I think a one-time consultation to the metabolic bone clinic to discuss bone health and subsequent need for possible treatment is prudent. This will be done here at the [facility] endocrine clinic. documented in this encounter Miscellaneous Notes * Addendum Note - Jr Salas DO - 05/26/2019 1140 ESTAddended by: JR SALAS on: 05/26/2019 12:45 Modules accepted: Orders documented in this encounter Plan of Treatment Upcoming Encounters Date Type Department Care Team (Late st Contact Info) Description 10/01/2024 13:40 EDT Office Visit [facility] Endocrinology - [facility] [address] [place], [place] [id number] Jr Salas DO [address] [facility] [address] [place] [address] documented as of this encounter Visit Diagnoses [...] 07/06/2024 added in this encounter Care Teams Nuclear Plant Operator Relationship Specialty Start Date End Date Ren Vaz MD [facility] [place] [address] PCP - General 09/30/18 documented as of this encounter
--- OUTSIDE RECORDS SUMMARY | 2024-08-03 13:47 | XMS_ITS | Encounter Summary ---
Author Organization [facility] Address [address] [place] [address] Care Team Providers Care Farm Management Adviser Name Role Phone Ren Vaz MD Primary Care Provider [phone] Reason for Visit * Reason Onset Date Comments Coordination Of Care 03/24/2019 Encounter Details Date Type Department Care Team (Late st Contact Info) Description 03/24/2019 Telephone [facility] Endocrinology - [facility] [address] [place] [address] Wilder Zaidi, [address] [facility] [address] [place] [address] Coordination Of Care Social History [...] and go to the emergency department. Instructed manager of warehouse to call back with any questions. * [...] 1313 EDT Called and left message for manager of warehouse to call back. * Telephone Encounter - [...] and possibly have Dr. Zaidi call the [facility] but would like to speak to a nurse first Please call Evelyn back SHEEBA documented in this encounter Plan of Treatment Upcoming Encounters Date Type Department Care Team (Late st Contact Info) Description 10/01/2024 13:40 EDT Office Visit [facility] Endocrinology - [facility] [address] [place] [address] Wilder Zaidi, [address] [facility] [address] [place] [address] documented as of this encounter Visit Diagnoses Not on filedocumented in this encounter Care Teams Farm Management Adviser Relationship Specialty Start Date End Date Ren Vaz MD [facility] [place] [address] PCP - General 09/30/18 documented as of this encounter
--- OUTSIDE RECORDS SUMMARY | 2024-08-03 13:47 | XMS_ITS | Encounter Summary ---
Author Organization [facility] Address [address] [place] [address] Care Team Providers Care Centrifuge Separator Tender Name Role Phone Ren Vaz MD Primary Care Provider [phone] Reason for Referral * Radiology Services (Routine/Next Available) - Specialty Report Received Specialty Diagnoses / Procedures Referred By Duyen bui Referred To Contact Diagnoses History of pituitary surgery Craniopharyngioma (HCC-CMS) Procedures CT HEAD WO CONTRAST Day Littlejohn MD PhD Phone: tel: fax: Referral ID Status Reason Start Date Expiration Date V isits Requested Visits Authorized [id number] Specialty Report Received 09/04/2023 1 1 * Radiology Services (Routine/Next Available) - Specialty Report Received Specialty Diagnoses / Procedures Referred By Duyen bui Referred To Contact Diagnoses 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 Procedures DXA BONE DENSITY Day Littlejohn MD PhD Phone: tel: fax: Referral ID Status Reason Start Date Expiration Date V isits Requested Visits Authorized [id number] Specialty Report Received 1 1 Reason for Visit * Reason Comments Other Panhypopituitarism Encounter Details Date Type Department Care Team (Latest Contact Info) Description 09/04/2023 10:00 EST Office Visit [facility] Endocrinology - [facility] [address] [place], [place] [id number] Day Littlejohn MD PhD [address] [place] [address] 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); [...] and [address] hd-at [facility] ([facility]) Order a bone dexascan to [...] mentation, seizure disorder. He lives in a halfway, usually sees Dr. Zaidi. Central Diabetes Insipidus-On [...] risk due to vision/gait. Dexascan ordered at [facility]-warned may not have there. LOsat scan showed osteopenia-on Ca/D. Will update and see if worsening. CT ordered--will avoid MRI due to enclosure/noise that may startle him. Day Littlejohn MD PhD 09/04/2023 13:14 documented in this encounter Plan of Treatment Upcoming Encounters Date Type Department Care Team (Late st Contact Info) Description 10/01/2024 13:40 EDT Office Visit [facility] Endocrinology - [address] [place] [address] Shonjalyn Wilder Erik, [address] [place] [address] Scheduled Orders Name Type Priority [...] daily. added in this encounter Care Teams Centrifuge Separator Tender Relationship Specialty Start Date End Date Ren Vaz MD [facility] [place] [address] PCP - General 09/30/18 documented as of this encounter
--- OUTSIDE RECORDS SUMMARY | 2024-08-03 13:47 | XMS_ITS | Encounter Summary ---
Author Organization [facility] Address [address] [place] [address] Care Team Providers Care Quality Control Lab Tech Name Role Phone Ren Vaz MD Primary Care Provider [phone] Reason for Visit * Reason Onset Date Comments Labs Only 04/11/2020 Encounter Details Date Type Department Care Team (Late st Contact Info) Description 04/11/2020 Telephone [facility] Endocrinology - [facility] [address] [place] [address] Wilder Zaidi, DO [address] [facility] [address] [place] [address] Labs Only Social History Tobacco [...] have been electronically faxed 04/11/20 15:27 to [facility] at [phone]. Lab orders entered by Dr. Zaidi have been electronically faxed 04/11/20 15:[address] [facility] at [phone]. LESLEY COURTNEY RN 04/11/2020 15:31 * Telephone Encounter - Lesley Jeffrey RN - 04/11/2020 1229 EDT Returning call 04/11/20 12:29 Spoke to : Mavis Per caller, patient is to have sodium checked every 3 months. Caller does not have the order. Would need the order faxed to her or hospital. This insurance writer will be faxing it to both fax numbers once we have the answer from the provider. Mavis's fax number : [phone] [facility] in [facility] : [phone] (fax) LESLEY COURTNEY RN 04/11/2020 12:33 * Telephone Encounter - Mirna Ervin - 04/11/2020 1215 EDT [facility] is calling to ask if orders have been put in for patient's blood work. Patient is there now. Passenger Conductor tried to reach nurse but was unable. documented in this encounter Plan of Treatment Upcoming Encounters Date Type Department Care Team (Late st Contact Info) Description 10/01/2024 13:40 EDT Office Visit [facility] Endocrinology - [facility] [address] [place], [place] [id number] Wilder Zaidi, [address] [facility] [address] [place] [address] documented as of this encounter Visit Diagnoses Diagnosis 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HCC-CMS)- Primary Panhypopituitarism documented in this encounter Care Teams Quality Control Lab Tech Relationship Specialty Start Date End Date Ren Vaz MD [address] [place] [address] PCP - General 09/30/18 documented as of this encounter
--- OUTSIDE RECORDS SUMMARY | 2024-08-03 13:47 | XMS_ITS | Encounter Summary ---
Author Organization [facility] Address [address] [place] [address] Care Team Providers Care Personnel Monitor Name Role Phone Ren Vaz MD Primary Care Provider [phone] Reason for Visit * Reason Onset Date Comments Follow-up 01/04/2020 Encounter Details Date Type Department Care Team (Late st Contact Info) Description 01/04/2020 Telephone [facility] Endocrinology - [facility] [address] [place] [address] Wilder Zaidi, [address] [facility] [address] [place] [address] Follow-up Social History Tobacco Use [...] progress note printed. Both documents faxed to [phone] by this director underwriter sales. Informed to call back if needs more information. LESLEY COURTNEY RN 01/04/2020 16:49 * Telephone Encounter - Lesley Jeffrey RN - 01/04/2020 1315 EDT Kwesi calling from [facility] 01/04/20 13:16 Need a referral to be able to draw the lab requisitions that were electronically faxed 01/04/20 by this director underwriter sales. [facility] 1. Facility needs referral to be completed/signed by provider 2. Include last progress note 3. Attention : not necessary Kwesi will be faxing the referral to [phone]. The fax will be to this director underwriter sales's attention. Referral received 01/04/20 at 12:18. Form will be handed to the provider. LESLEY COURTNEY RN 01/04/2020 13:21 * Telephone Encounter - Debbie Choudhary - 01/04/2020 1313 EDT Raphael calling back for Lesley. documented in this encounter Plan of Treatment Upcoming Encounters Date Type Department Care Team (Late st Contact Info) Description 10/01/2024 13:40 EDT Office Visit [facility] Endocrinology - [address] [address] Wilder Zaidi, DO [address] [facility] [address] [place] [address] documented as of this encounter Visit Diagnoses Not on filedocumented in this encounter Care Teams Personnel Monitor Relationship Specialty Start Date End Date Ren Vaz MD [address] [place] [address] PCP - General 09/30/18 documented as of this encounter
--- OUTSIDE RECORDS SUMMARY | 2024-08-03 13:47 | XMS_ITS | Encounter Summary ---
Author Organization [facility] Address [address] [place] [address] Care Team Providers Care Nurse Instructor Name Role Phone Ren Vaz MD Primary Care Provider [phone] Reason for Visit * Reason Onset Date Comments Results 03/10/2019 Encounter Details Date Type Department Care Team (Late st Contact Info) Description 03/10/2019 Telephone [facility] Endocrinology - [facility] [address] [place] [address] Wilder Zaidi, DO [address] [facility] [address] [place] [address] Results Social History Tobacco Use [...] 1237 EDT Called and spoke with pt case coordinator and relayed Dr. Zaidi's message below: Please contact patient's caregivers. The patient Miguel Angel is nonverbal. Please advise him that I have reviewed his blood work obtained at [facility] drawn on 03/04/2019. His sodium was stable at 144. They should continue his current dose of DDAVP and fluid restriction. Repeat sodium in 3 months unless there is any significant changes in his behavior or urine output etc. Please advise his caretakers to contact me with any questions or concerns Patient case coordinator verbalized understanding. No barriers to learning noted. * Telephone Encounter - Wilder Zaidi Do - 03/10/2019 0933 EDT Please contact patient's caregivers. The patient Miguel Angel is nonverbal. Please advise him that I have reviewed his blood work obtained at [facility] drawn on 03/04/2019. His sodium was [...] Visit [facility] Endocrinology - [facility] [address] [place] [address] Wilder Zaidi DO [address] [facility] [address] [place] [address] documented as of this encounter Visit Diagnoses Not on filedocumented in this encounter Care Teams Nurse Instructor Relationship Specialty Start Date End [place] [address] PCP - General 09/30/18 documented as of this encounter
--- OUTSIDE RECORDS SUMMARY | 2024-08-03 13:47 | XMS_ITS | Encounter Summary ---
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 Please send me an email confirming date and time of appointment so I can put on my calendar. * Telephone Encounter - Lesley Jeffrey RN - 05/21/2019 1059 EST Images from the original note were not included. Message received from PAC : Cam Pisano 10:29 []Hide copied text []Hover for details Assistant Branch Manager calling on behalf of client to get sooner FUR w/Dr Zaidi. Soonest this consumer loan underwriter could schedule was September 2019. ?? Stated patient had 'an incident' that would qualify him for sooner appt date and that Dr Zaidi knows about this patient's history and would want to see him sooner than that. ?? Asked for nurse to call her back as well as electrical mechanical technician for sooner appt date Returning call to case work aide 05/21/19 10:37 Concrete Finishing Machine Operator and consumer loan underwriter identified that the patient that was [...] that had originally been sent to this consumer loan underwriter LESLEY COURTNEY RN 05/21/2019 11:01 documented in this encounter Plan of Treatment Upcoming Encounters Date Type Department Care Team (Late st Contact Info) Description 10/01/2024 13:40 EDT Office Visit [facility] Endocrinology - [place] [address] [place] [address] Wilder Zaidi, DO [address] [place] [address] documented as of this encounter Visit Diagnoses Not on filedocumented in this encounter Care Teams Holter Technician Relationship Specialty Start Date End Date Ren Vaz MD [facility] [address] PCP - General 09/30/18 documented as of this encounter
--- OUTSIDE RECORDS SUMMARY | 2024-08-03 13:47 | XMS_ITS | Encounter Summary ---
Author Organization [facility] Address [address] [place] [address] Care Team Providers Care Sales Route Driver Name Role Phone Ren Vaz MD Primary Care Provider [phone] Reason for Visit * Reason Onset Date Comments Paperwork request 03/09/2024 Encounter Details Date Type Department Care Team (Late st Contact Info) Description 03/09/2024 Telephone [facility] Endocrinology - [address] [address] Day Littlejohn MD PhD [address] [facility] [address] [place] [address] Paperwork request Social History Tobacco [...] - Guillaume Pennington - 03/09/2024 1025 EDT [employer] faxed most recent office note to [phone] documented in this encounter Plan of Treatment Upcoming Encounters Date Type Department Care Team (Late st Contact Info) Description 10/01/2024 13:40 EDT Office Visit [facility] Endocrinology - [address] [phone] Wilder Zaidi, [address] [facility] [address] [place] [address] documented as of this encounter Visit Diagnoses Not on filedocumented in this encounter Care Teams Sales Route Driver Relationship Specialty Start Date End Date Ren Vaz MD [facility] [place] [address] PCP - General 09/30/18 documented as of this encounter
--- OUTSIDE RECORDS SUMMARY | 2024-08-03 13:47 | XMS_ITS | Encounter Summary ---
Author Organization [facility] Address [address] [place] [address] Care Team Providers Care Bell Maker Name Role Phone Ren Vaz MD Primary Care Provider [phone] Reason for Visit * Reason Onset Date Comments Other 06/21/2024 Needs permission to discuss Follow-up 06/21/2024 Encounter Details Date Type Department Care Team (Late st Contact Info) Description 06/21/2024 Telephone [facility] - [facility] [address] [place] [address] Wilder Zaidi, [address] [facility] [address] [place] [address] Other (Needs permission to discuss); [...] Zaidi. Please call Bettina back to schedule [phone] * Telephone Encounter - Mavis Franco RN - 06/21/2024 1624 EST Images from the original note were not included. Spoke with Prachi at [facility]. Fax will be sent of document stating [...] ICU today. Bettina Before [address] [place] [address] Routing to Salud Burton, Dr. Zaidi, and [facility] carrie. MAVIS FRANCO RN 06/21/2024 17:02 * Telephone Encounter - Lucille Carmichael - 06/21/2024 1433 EST Bettina Burgos (sister) calling. Asking if patient is still seeing Dr Zaidi/when is next appt, etc. This person is not listed on his permission to discuss and continuity writer could not give her any answers. Bettina because annoyed and asked that Dr. Zaidi call and speak with her directly. documented in this encounter Plan of Treatment Upcoming Encounters Date Type Department Care Team (Late st Contact Info) Description 10/01/2024 13:40 EDT Office Visit [facility] Endocrinology - [facility] [address] [place] [address] Wilder Zaidi, DO [address] [facility] [address] [place] [address] documented as of this encounter Visit Diagnoses Not on filedocumented in this encounter Care Teams Bell Maker Relationship Specialty Start Date End Date Ren Vaz MD [facility] [place] [address] PCP - General 09/30/18 documented as of this encounter
--- OUTSIDE RECORDS SUMMARY | 2024-08-03 13:47 | XMS_ITS | Encounter Summary ---
Author Organization [facility] Address [address] [place] [address] Care Team Providers Care Soft Water Mechanic Name Role Phone Ren Vaz MD Primary Care Provider [phone] Reason for Visit * Reason Onset Date Comments Medication Management 08/02/2024 Encounter Details Date Type Department Care Team (Late st Contact Info) Description 08/02/2024 Telephone [facility] Endocrinology - [facility] [address] [place] [address] Wilder Zaidi, [address] [facility] [address] [place] [address] Medication Management Social History Tobacco Use Types [...] Miscellaneous Notes * Telephone Encounter - Aisha Villalta, RN - 08/02/2024 1605 EST SW patient's sister to relay Dr. Zaidi's message in encounter. Patient is going to have a repeat sodium drawn tomorrow at an appointment. Aisha Villalta RN * Telephone Encounter - Wilder Zaidi DO - 08/02/2024 1545 EST Please contact Bettina patient's sister and the half-way where patient currently resides. I reviewed his most recent sodium from 07/30/2024 was slightly low 133. Would like to recheck in 1 week. If remains slightly low could consider slight reduction in his fluid intake. Please confirm he is on DDAVP at 0.1 mg in the morning and 0.15 mg in the evening and that he is being restricted to 3 L of fluid per day. documented in this encounter Plan of Treatment Upcoming Encounters Date Type Department Care Team (Late st Contact Info) Description 10/01/2024 13:40 EDT Office Visit [facility] Endocrinology - [facility] [address] [place], [place] [phone] Wilder Zaidi DO [address] [facility] [address] [place] [address] Scheduled Orders Name Type Priority Associated Diagnoses Orde r Schedule SODIUM Lab Routine Secondary adrenal insufficiency (HCC-CMS) Expected: 08/02/2024 (Approximate), Expires: 08/02/2025 documented as of this encounter Visit Diagnoses Diagnosis Secondary adrenal insufficiency (HCC-CMS)- Primary Glucocorticoid deficiency documented in this encounter Care Teams Soft Water Mechanic Relationship Specialty Start Date End Date Ren Vaz MD [facility] [place] [address] PCP - General 09/30/18 documented as of this encounter
--- OUTSIDE RECORDS SUMMARY | 2024-08-03 13:48 | XMS_ITS | Encounter Summary ---
Author Organization [facility] Address [address] [place] [address] Care Team Providers Care Cattle Tester Name Role Phone Emilee Cody MD Primary Care Provider + Reason for Visit * Reason Onset Date Comments Discuss Test Results 06/25/201606/21 @[facility] Discuss Test Results 06/25/2016 Sodium Results 07/04/2016 Encounter Details Date Type Department Care Team (Late st Contact Info) Description 06/25/2016 Telephone [facility] Endocrinology - [facility] [address] [place] [address] Wilder Zaidi DO [address] [facility] [address] [place] [address] Discuss Test Results (06/21 [facility] Discuss Test Results (Sodium); Results Social [...] Encounter - Jennifer Au RN - 07/10/2016 7562 EST Spoke to Jessika and relayed Dr. Pa recommendation to recheck labs in 3 months./JOSE * Telephone Encounter - Wilder Zaidi DO - 07/10/2016 1431 EST No change. Sodium in normal range. Recheck in 3 moths or if there is change in behavior or clinicalstatus. * Telephone Encounter - Jennifer Au RN - 07/10/2016 1317 EST Called [facility] looking for latest sodium labs from 07/09. Sodium remains at 140. * Telephone Encounter - Jennifer Au RN - 07/08/2016 1009 EST Spoke with - at [place], confirming that Miguel Angel is on fluid restrictions of 110 ounces daily. Willhave sodium drawn tomorrow at [facility]. /JOSE * Telephone Encounter - Wilder [...] Maxine Roy - 07/04/2016 0927 EST Lali @[place] states his sodium level was drawn on 06/21 @[facility] and was at 140. Requesting Dr[address] Pa advice as to when to re-test. * Telephone Encounter - Patrica Mari - 07/03/2016 1501 EST Lali calling for Sodium test result. Please call. * Telephone Encounter - Maxine Roy - 06/25/2016 0900 EST Jose Manuel checking to see if the pt's lab results from 06/21 have been received from [facility]. documented in this encounter Plan of Treatment Upcoming Encounters Date Type Department Care Team (Late st Contact Info) Description 10/01/2024 13:40 EDT Office Visit [facility] Endocrinology - [facility] [address] [place], [place] [phone] Wilder Zaidi, DO [address] [facility] [address] [place] [address] documented as of this encounter Visit Diagnoses Not on filedocumented in this encounter Care Teams Cattle Tester Relationship Specialty Start Date End Date Emilee Cody MD [address] [place] [address] PCP - General 03/15/16 09/29/18 documented as of this encounter
--- OUTSIDE RECORDS SUMMARY | 2024-08-03 13:48 | XMS_ITS | Encounter Summary ---
Author Organization [facility] Address [address] [place] [address] Care Team Providers Care Slate Worker Name Role Phone Yossi Torres MD Primary Care Provider [phone] Emilee Cody MD Primary Care Provider + Reason for Visit * Reason Onset Date Comments Prior Auth, Medication 03/13/2016 levothyro xine Encounter Details Date Type Department Care Team (Late st Contact Info) Description 03/13/2016 Telephone [facility] Endocrinology - [facility] [address] [place] [address] Wilder Zaidi, [address] [facility] [address] [place] [address] Prior Auth, Medication (levothyroxine) Social [...] Durant - 03/13/2016 1311 EDT Miguel Angel's lead case manager called to advise that the [...] Visit [facility] Endocrinology - [address] [address] Wilder Zaidi, [address] [facility] [address] [place] [address] documented as of this encounter Visit Diagnoses Not on filedocumented in this encounter Discontinued Medications Medication Sig Discontinue Reason Start Date End Da te levothyroxine (SYNTHROID) 150 mcg tablet TAKE ONE TABLET BY MOUTH EVERY DAY Reorder 05/04/2015 03/18/2016 documented as of this encounter Care Teams Slate Worker Relationship Specialty Start Date End Date Yossi Torres MD [address] [place] [address] [address] [place] [phone] PCP - General 04/17/11 03/14/16 Emilee Cody MD [facility] [address] [place], [place] [id number] PCP - General 03/15/16 09/29/18 documented as of this encounter
--- OUTSIDE RECORDS SUMMARY | 2024-08-03 13:48 | XMS_ITS | Encounter Summary ---
Author Organization [facility] Address [address] [place] [address] Care Team Providers Care Loss Prevention Representative Name Role Phone Emilee Cody MD Primary Care Provider + Reason for Visit * Reason Onset Date Comments Prior Auth, Medication 07/12/2016 Levothyro xine 150 mcg needs 30 day overide thru Insurance Encounter Details Date Type Department Care Team (Late st Contact Info) Description 07/12/2016 Telephone [facility] Endocrinology - [facility] [address] [place] [address] Wilder Zaidi DO [address] [facility] [address] [place] [address] Prior Auth, Medication (Levothyroxine 150 [...] - 07/15/2016 1403 EST Rcvd fax from [place] [employer]icaid with APPROVAL for: Drug NDC # and Name: [id number] - LEvothyroxin tab 150 mcg Tracking #: [id number] PA #: [id number] Dates: 07/15/2016 - 07/15/2017 Qty / Days Supply Restrictions: 30.0 / 30 [place] Medicaid ID #: [id number] Called pharmacy - they already rcvd notice and script has been picked up. * Telephone Encounter - Lucía Bundy - 07/15/2016 1155 EST Completed [place] Medicaid [place] Request form and e-filed using [facility] to initiate this process. * Telephone [...] Info) Description 10/01/2024 13:40 EDT Office Visit [facility] Endocrinology - [address] [phone] Wilder Zaidi, [address] [facility] [address] [place] [address] documented as of this encounter Visit Diagnoses Not on filedocumented in this encounter Care Teams Loss Prevention Representative Relationship Specialty Start Date End Date Emilee Cody MD [address] [place] [address] PCP - General 03/15/16 09/29/18 documented as of this encounter
--- OUTSIDE RECORDS SUMMARY | 2024-08-03 13:48 | XMS_ITS | Encounter Summary ---
Author Organization [facility] Address [address] [place] [address] Care Team Providers Care Tar And Ammonia Pump Operator Name Role Phone Yossi Torres MD Primary Care Provider [phone] Reason for Visit * Reason Comments Labs Only Encounter Details Date Type Department Care Team (Latest Contact Info) Description 02/01/2014 10:45 EDT Procedure visit [facility] Endocrinology - [facility] [address] [place], [place] [phone] Wilder Zaidi, [address] [facility] [address] [place] [address] Phlebotomy, [facility] Central hypothyroidism Social History [...] 13:40 EDT Office Visit [facility] Endocrinology - [facility] [address] [place] [address] Wilder Zaidi, DO [address] [facility] [address] [place] [address] documented as of this encounter [...] ORDERABLES Final Result [facility] [address] [place] [address] documented in this encounter Visit Diagnoses Diagnosis Central hypothyroidism Unspecified hypothyroidism documented in this encounter Care Teams Tar And Ammonia Pump Operator Relationship Specialty Start Date End Date Yossi Torres MD [address] [place] [address] [address] [place] [phone] PCP - General 04/17/11 03/14/16 documented as of this encounter
--- OUTSIDE RECORDS SUMMARY | 2024-08-03 13:48 | XMS_ITS | Encounter Summary ---
Author Organization [facility] Address [address] [place] [address] Care Team Providers Care Propellant Charge Loader Name Role Phone Emilee Cody MD Primary Care Provider + Reason for Visit * Reason Onset Date Comments Medications Refill 05/27/2017 Encounter Details Date Type Department Care Team (Late st Contact Info) Description 05/27/2017 Refill [facility] Endocrinology - [facility] [address] [place] [address] Wilder Zaidi, [address] [facility] [address] [place] [address] Medications Refill Social History Tobacco [...] Info) Description 10/01/2024 13:40 EDT Office Visit [facility] Endocrinology - [facility] [address] [place] [address] Wilder Zaidi, [address] [facility] [address] [place] [address] documented as of this encounter Visit Diagnoses Not on filedocumented in this encounter Discontinued Medications Medication Sig Discontinue Reason Start Date End Da te levothyroxine (SYNTHROID) 150 mcg tablet TAKE ONE TABLET BY MOUTH EVERY DAY/ Blister pack Reorder 07/12/2016 05/27/2017 documented as of this encounter Care Teams Propellant Charge Loader Relationship Specialty Start Date End Date Emilee Cody MD [address] [place] [address] PCP - General 03/15/16 09/29/18 documented as of this encounter
--- OUTSIDE RECORDS SUMMARY | 2024-08-03 13:48 | XMS_ITS | Encounter Summary ---
Author Organization [facility] Address [address] [place] [address] Care Team Providers Care Medical Transcription Editor Name Role Phone Yossi Torres MD Primary Care Provider [phone] Emilee Cody MD Primary Care Provider + Reason for Visit * Reason Onset Date Comments Results 08/05/2014 Encounter Details Date Type Department Care Team (Late st Contact Info) Description 08/05/2014 Telephone [facility] Endocrinology - [facility] [address] [place] [address] Wilder Zaidi DO [address] [facility] [address] [place] [address] Results Social History Tobacco Use [...] Encounter - Wilder Zaidi DO - 08/05/2014 0802 EST Spoke with sister. They held his [...] patient's most recent laboratory results from the [facility] dated 08/04/14 . Advise patient that [...] Description 10/01/2024 13:40 EDT Office Visit [facility] Endocrinology - [facility] [address] [place] [address] Wilder Zaidi DO [address] [facility] [address] [place] [address] documented as of this encounter Visit Diagnoses Not on filedocumented in this encounter Care Teams Medical Transcription Editor Relationship Specialty Start Date End Date Yossi Torres MD [address] [place] [address] [address] [place] [phone] PCP - General 04/17/11 03/14/16 Emilee Cody MD [address] [place] [address] PCP - General 03/15/16 09/29/18 documented as of this encounter
--- OUTSIDE RECORDS SUMMARY | 2024-08-03 13:48 | XMS_ITS | Encounter Summary ---
Author Organization [facility] Address [address] [place] [address] Care Team Providers Care Contingents Supervisor Name Role Phone Yossi Torres MD Primary Care Provider [phone] Reason for Visit * Reason Onset Date Comments Discuss Test Results 05/18/2015 Encounter Details Date Type Department Care Team (Late st Contact Info) Description 05/18/2015 Telephone [facility] Endocrinology - [facility] [address] [place] [address] Wilder Zaidi, [address] [facility] [address] [place] [address] Discuss Test Results Social History [...] - 05/18/2015 1544 EST Sodium 143 from [facility]. * Telephone Encounter - Tracy Nunez - 05/18/2015 8263 EST Reason for Call: Discuss Test Results Summary/Symptoms: Sodium results done Friday @ [facility] Tracy Magdalenobrad 05/18/2015 13:44 documented in this encounter Plan of Treatment Upcoming Encounters Date Type Department Care Team (Late st Contact Info) Description 10/01/2024 13:40 EDT Office Visit [facility] Endocrinology - [facility] [address] [place] [address] Wilder Zaidi, [address] [facility] [address] [place] [address] documented as of this encounter Visit Diagnoses Not on filedocumented in this encounter Care Teams Contingents Supervisor Relationship Specialty Start Date End Date Yossi Torres MD [address] [place] [address] [facility] [address] [place] [phone] PCP - General 04/17/11 03/14/16 documented as of this encounter
--- OUTSIDE RECORDS SUMMARY | 2024-08-03 13:48 | XMS_ITS | Encounter Summary ---
Author Organization [facility] Address [address] [place] [address] Care Team Providers Care Fire Ranger Name Role Phone Emilee Cody MD Primary Care Provider + Reason for Visit * Reason Onset Date Comments Update 04/09/2016 standing medicat ion form Encounter Details Date Type Department Care Team (Late st Contact Info) Description 04/09/[address] [facility] Endocrinology - [facility] [address] [place] [address] Wilder Zaidi, [address] [facility] [address] [place] [address] Update (standing medication form) Social [...] Update (standing medication form) Summary/Symptoms: Lali from [facility] is calling to discuss a prescription that [...] Office Visit [facility] Endocrinology - [facility] [address] [place] [address] Wilder Zaidi, [address] [facility] [address] [place] [phone] documented as of this encounter Visit Diagnoses Not on filedocumented in this encounter Care Teams Fire Ranger Relationship Specialty Start Date End Date Emilee Cody MD [address] [place] [address] PCP - General 03/15/16 09/29/18 documented as of this encounter
--- OUTSIDE RECORDS SUMMARY | 2024-08-03 13:48 | XMS_ITS | Encounter Summary ---
Author Organization [facility] Address [address] [place] [address] Care Team Providers Care Bit Tapper Name Role Phone Emilee Cody MD Primary Care Provider + Reason for Visit * Reason Onset Date Comments Medication Problem 07/12/2016 needs overrid e Encounter Details Date Type Department Care Team (Late st Contact Info) Description 07/12/2016 Telephone [facility] Endocrinology - [facility] [address] [place] [address] Wilder Zaidi, [address] [facility] [address] [place] [address] Medication Problem (needs override) Social [...] Office Visit [facility] Endocrinology - [address] [address] Wilder Zaidi, [address] [facility] [address] [place] [address] documented as of this encounter Visit Diagnoses Not on filedocumented in this encounter Discontinued Medications Medication Sig Discontinue Reason Start Date End Da te levothyroxine (SYNTHROID) 150 mcg tablet TAKE ONE TABLET BY MOUTH EVERY DAY/ Blister pack Reorder 06/14/2016 07/12/2016 documented as of this encounter Care Teams Bit Tapper Relationship Specialty Start Date End Date Emilee Cody MD [address] [place] [address] PCP - General 03/15/16 09/29/18 documented as of this encounter
--- OUTSIDE RECORDS SUMMARY | 2024-08-03 13:48 | XMS_ITS | Encounter Summary ---
Author Organization [facility] Address [address] [place] [address] Care Team Providers Care Multimedia Coordinator Name Role Phone Yossi Torres MD Primary Care Provider +1- [phone] Reason for Visit * Reason Onset Date Comments Letter for School/Work 10/17/2014 Encounter Details Date Type Department Care Team (Late st Contact Info) Description 10/17/2014 Telephone [facility] Endocrinology - [facility] [address] [place] [address] Belgica Chavez CDE [address] [facility] [address] [place] [address] Letter for School/Work Social History [...] - 10/19/2014 1122 EDT Faxed letter to [facility] [email or web address] services. * Telephone Encounter - Wilder Zaidi DO - 10/17/2014 3374 EDT Please type up letter for me [...] EDT Office Visit [facility] Endocrinology - [facility] [address] [place], [place] [phone] Wilder Zaidi DO [address] [place] [address] documented as of this encounter Visit Diagnoses Not on filedocumented in this encounter Care Teams Multimedia Coordinator Relationship Specialty Start Date End Date Yossi Torres MD [address] [place] [address] [address] [place] [phone] PCP - General 04/17/11 03/14/16 documented as of this encounter
--- OUTSIDE RECORDS SUMMARY | 2024-08-03 13:48 | XMS_ITS | Encounter Summary ---
Author Organization [facility] Address [address] [place] [address] Care Team Providers Care Slag Mixer Name Role Phone Yossi Torres MD Primary Care Provider +1- [phone] Reason for Visit * Reason Onset Date Comments Labs Only 01/29/2016 Results 01/31/2016 lab,7.22,[facility] Encounter Details Date Type Department Care Team (Late st Contact Info) Description 01/29/2016 Telephone [facility] Endocrinology - [address] [phone] Georgia Rice RN Labs Only; Results (lab,7.22,[facility]) Social History Tobacco Use Types Packs/Day [...] and repeat in 2 wks. [facility] notified. * Telephone Encounter - Day Littlejohn MD - 01/31/2016 1710 EDT Repeat the Na done in [place] and found slip in Dr. Zaidi's box. Level is 133 ([id number])---but last few draws 141-146. In October his [...] if lab results from 01.25 done at [facility] are available yet. Per Dr. Dejuan Ho out sick and will ask a covering. Will call back as soon as she has an answer. Alicia Chi 01/31/2016 15:49 * Telephone Encounter - Georgia Rice RN - 01/29/2016 1234 EDT Received lab results from [facility] Resulted 01/26/16 Sodium-133 L ([id number]) documented in this encounter Plan of Treatment Upcoming Encounters Date Type Department Care Team (Late st Contact Info) Description 10/01/2024 13:40 EDT Office Visit [facility] Endocrinology - [place] [address] [place] [address] Wilder Zaidi, [address] [place] [address] documented as of this encounter Visit Diagnoses Not on filedocumented in this encounter Care Teams Slag Mixer Relationship Specialty Start Date End Date Yossi Torres MD [address] [place] [address] [facility] [address] [place] [phone] PCP - General 04/17/11 03/14/16 documented as of this encounter
--- OUTSIDE RECORDS SUMMARY | 2024-08-03 13:48 | XMS_ITS | Encounter Summary ---
Author Organization [facility] Address [address] [place] [address] Care Team Providers Care Engineering Team Supervisor Name Role Phone Emilee Cody MD Primary Care Provider + Reason for Visit * Reason Onset Date Comments Prior Auth, Medication 06/14/2016 Levothyro xine Encounter Details Date Type Department Care Team (Late st Contact Info) Description 06/14/2016 Telephone [facility] Endocrinology - [facility] [address] [place] [address] Wilder Zaidi, [address] [facility] [address] [place] [address] Prior Auth, Medication (Levothyroxine) Social [...] Mari - 06/14/2016 [address] [facility] calling states that pt will be out of medication tomorrow and that they need an urgent PA for Levothyroxine. Please call. documented in this encounter Plan of Treatment Upcoming Encounters Date Type Department Care Team (Late st Contact Info) Description 10/01/2024 13:40 EDT Office Visit [facility] Endocrinology - [facility] [address] [place], [place] [phone] Wilder Zaidi, [address] [facility] [address] [place] [address] documented as of this encounter Visit Diagnoses Not on filedocumented in this encounter Discontinued Medications Medication Sig Discontinue Reason Start Date End Da te levothyroxine (SYNTHROID) 150 mcg tablet TAKE ONE TABLET BY MOUTH EVERY DAY Reorder 05/01/2016 06/14/2016 documented as of this encounter Care Teams Engineering Team Supervisor Relationship Specialty Start Date End Date Emilee Cody MD [address] [place] [address] PCP - General 03/15/16 09/29/18 documented as of this encounter
--- OUTSIDE RECORDS SUMMARY | 2024-08-03 13:48 | XMS_ITS | Encounter Summary ---
Author Organization [facility] Address [address] [place] [address] Care Team Providers Care Director Inpatient Headache Program Name Role Phone Yossi Torres MD Primary Care Provider +1- [phone] Reason for Visit * Reason Onset Date Comments Labs Only 01/18/2015 Sodium results Encounter Details Date Type Department Care Team (Late st Contact Info) Description 01/18/2015 Telephone [facility] Endocrinology - [facility] [address] [place] [address] Wilder Zaidi DO [address] [facility] [address] [place] [address] Labs Only (Sodium results ) [...] Results and plan reviewed with staff at [facility]. * Telephone Encounter - Hayley Odonnell - 01/18/2015 1210 EDT Reason for Call: Labs Only Summary/Symptoms: [facility] called to verify sodium labs had been received. Requested call back. Hayley Odonnell 01/18/2015 12:10 documented in this encounter Plan of Treatment Upcoming Encounters Date Type Department Care Team (Late st Contact Info) Description 10/01/2024 13:40 EDT Office Visit [facility] Endocrinology - [facility] [address] [place] [address] Wilder Zaidi, [address] [facility] [address] [place] [address] documented as of this encounter Visit Diagnoses Not on filedocumented in this encounter Care Teams Director Inpatient Headache Program Relationship Specialty Start Date End Date Yossi Torres MD [address] [place] [address] [address] [place] [phone] PCP - General 04/17/11 03/14/16 documented as of this encounter
--- OUTSIDE RECORDS SUMMARY | 2024-08-03 13:48 | XMS_ITS | Encounter Summary ---
Author Organization [facility] Address [address] [place] [address] Care Team Providers Care Integration Solution Architect Name Role Phone Yossi Torres MD Primary Care Provider +1- [phone] Reason for Visit * Reason Onset Date Comments Discuss Test Results 06/20/201506/12 [facility] Encounter Details Date Type Department Care Team (Late st Contact Info) Description 06/20/2015 Telephone [facility] Endocrinology - [facility] [address] [place] [address] Wilder Zaidi DO [address] [facility] [address] [place] [address] Discuss Test Results (06/12 [facility] ) Social History Tobacco Use [...] Call: Discuss Test Results Summary/Symptoms: Lali from [facility] calling for results. States kabs were done 06/12 [facility]. Please call. Jen Sanchez 06/20/2015 15:22 documented in this encounter Plan of Treatment Upcoming Encounters Date Type Department Care Team (Late st Contact Info) Description 10/01/2024 13:40 EDT Office Visit [facility] Endocrinology - [facility] [address] [place] [address] Wilder Zaidi DO [address] [facility] [address] [place] [phone] documented as of this encounter Visit Diagnoses Not on filedocumented in this encounter Care Teams Integration Solution Architect Relationship Specialty Start Date End Date Yossi Torres MD [address] [place] [address] [address] [place] [phone] PCP - General 04/17/11 03/14/16 documented as of this encounter
--- OUTSIDE RECORDS SUMMARY | 2024-08-03 13:48 | XMS_ITS | Encounter Summary ---
Author Organization [facility] Address [address] [place] [address] Care Team Providers Care African Studies Professor Name Role Phone Emilee Cody MD Primary Care Provider + Reason for Visit * Reason Onset Date Comments Medications Refill 05/01/2016 Encounter Details Date Type Department Care Team (Late st Contact Info) Description 05/01/2016 Refill [facility] Endocrinology - [facility] [address] [place] [address] Wilder Zaidi, [address] [facility] [address] [place] [address] Medications Refill Social History Tobacco [...] Office Visit [facility] Endocrinology - [facility] [address] [place] [address] Wilder Zaidi, 62 [facility] [address] [place] [address] documented as of this encounter Visit Diagnoses Not on filedocumented in this encounter Discontinued Medications Medication Sig Discontinue Reason Start Date End Da te levothyroxine (SYNTHROID) 150 mcg tablet TAKE ONE TABLET BY MOUTH EVERY DAY Reorder 03/18/2016 05/01/2016 documented as of this encounter Care Teams African Studies Professor Relationship Specialty Start Date End Date Emilee Cody MD [address] [place] [address] PCP - General 03/15/16 09/29/18 documented as of this encounter
--- OUTSIDE RECORDS SUMMARY | 2024-08-03 13:48 | XMS_ITS | Encounter Summary ---
Author Organization [facility] Address [address] [place] [address] Care Team Providers Care Billing And Quality Technician Name Role Phone Yossi Torres MD Primary Care Provider +1 [phone] Reason for Visit * Reason Onset Date Comments Prior Auth, Medication 03/15/2015 Androgel Encounter Details Date Type Department Care Team (Late st Contact Info) Description 03/15/2015 Telephone [facility] Endocrinology - [facility] [address] [place] [address] Wilder Zaidi, [address] [facility] [address] [place] [address] Prior Auth, Medication (Androgel) Social [...] for: Androgel Gel 1.62%, 150/30 days Drug [facility]#: [id number] Tracking Number: [id number] Dates: 03/15/2015 to 03/15/2016 PA #: [id number] Called pharmacy & left message with patients sister that androgel has been approved. * Telephone Encounter - AtlanticLucía - 03/15/2015 1456 EDT Rcvd fax from pharmacy requesting PA for Androgel - completed [place] Medicaid PA Form using [employer] and e-filed to initiate process. documented in this encounter Plan of Treatment Upcoming Encounters Date Type Department Care Team (Late st Contact Info) Description 10/01/2024 13:40 EDT Office Visit [facility] Endocrinology - [address] [address] Wilder Zaidi, [address] [facility] [address] [place] [address] documented as of this encounter Visit Diagnoses Not on filedocumented in this encounter Care Teams Billing And Quality Technician Relationship Specialty Start Date End Date Yossi Torres MD [address] [place] [address] [address] [place] [phone] PCP - General 04/17/11 03/14/16 documented as of this encounter
--- OUTSIDE RECORDS SUMMARY | 2024-08-03 13:48 | XMS_ITS | Encounter Summary ---
Author Organization [facility] Address [address] [place] [address] Care Team Providers Care Quality Process Lead Name Role Phone Yossi Torres MD Primary Care Provider +1 [phone] Reason for Visit * Reason Onset Date Comments Results 08/04/2014 Encounter Details Date Type Department Care Team (Late Contact Info) Description 08/04/2014 Telephone [facility] Endocrinology - [facility] [address] [place] [address] Wilder Zaidi, 62 [facility] [address] [place] [address] Results Social History Tobacco Use [...] Office Visit [facility] Endocrinology - [place] [address] [place], [place] [phone] Wilder Zaidi, DO [address] [place] [address] documented as of this encounter Visit Diagnoses Not on filedocumented in this encounter Care Teams Quality Process Lead Relationship Specialty Start Date End Date Yossi Torres MD [address] [place] [address] [address] [place] [phone] PCP - General 04/17/11 03/14/16 documented as of this encounter
--- OUTSIDE RECORDS SUMMARY | 2024-08-03 13:48 | XMS_ITS | Encounter Summary ---
Author Organization [facility] Address [address] [place] [address] Care Team Providers Care Unit Coordinator Name Role Phone Yossi Torres MD Primary Care Provider +1- [phone] Reason for Visit * Reason Onset Date Comments Medications Refill 08/29/2014 Encounter Details Date Type Department Care Team (Late st Contact Info) Description 08/29/2014 Refill [facility] Endocrinology - [facility] [address] [place], [place] [phone] Wilder Zaidi DO [address] [facility] [address] [place] [address] Medications Refill Social History Tobacco [...] (1.62 %) transdermal gel pumpIndications:Jose nhypopituitarism ([facility]) Apply 1 pump actuation topically daily Daily Max: 20.25 mg 75 g 3 08/29/2014 5 documented in this encounter Miscellaneous Notes * Telephone Encounter - Chavez, [place] - 09/02/2014 0950 EST Androgel refill phoned in to pharmacy [facility] in [place]. 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 Reorder 02/03/2014 08/29/2014 documented as of this encounter Care Teams Unit Coordinator Relationship Specialty Start Date End Date Yossi Torres MD [address] [place] [address] [address] [place] [phone] PCP - General 04/17/11 03/14/16 documented as of this encounter
--- OUTSIDE RECORDS SUMMARY | 2024-08-03 13:48 | XMS_ITS | Encounter Summary ---
Author Organization [facility] Address [address] [place] [address] Care Team Providers Care Glass Cutter Name Role Phone Emilee Cody MD Primary Care Provider + Reason for Visit * Reason Onset Date Comments Orders (Non Pre-visit) 06/21/2016 Encounter Details Date Type Department Care Team (Late st Contact Info) Description 06/21/2016 Telephone [facility] Endocrinology - [facility] [address] [place] [address] Wilder Zaidi, [address] [facility] [address] [place] [address] Orders (Non Pre-visit) Social History [...] Encounter - Jennifer Au RN - 06/21/2016 1158 EST Lab orders faxed as requested./JOSE * Telephone Encounter - Gladys Willingham - 06/21/2016 0081 EST Reason for Call: Orders (Non Pre-visit) Summary/Symptoms: Pt needs lab orders faxed to [facility] @ [phone]. 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
--- OUTSIDE RECORDS SUMMARY | 2024-08-03 13:48 | XMS_ITS | Encounter Summary ---
Author Organization [facility] Address [address] [place] [address] Care Team Providers Care Linen Keeper Name Role Phone Emilee Cody MD Primary Care Provider + Reason for Visit * Reason Onset Date Comments Update 04/08/2016 Going to ED Sinus Problems 04/08/2016 Difficulty Walking 04/08/2016 Encounter Details Date Type Department Care Team (Late st Contact Info) Description 04/08/2016 Telephone [facility] Endocrinology - [facility] [address] [place] [address] Wilder Zaidi, [address] [facility] [address] [place] [address] Update (Going to ED); Sinus [...] 10/01/2024 13:40 EDT Office Visit [facility] Endocrinology - [address] [address] Wilder Zaidi DO 62 [facility] [address] [place] [address] documented as of this encounter Visit Diagnoses Not on filedocumented in this encounter Care Teams Linen Keeper Relationship Specialty Start Date End Date Emilee Cody MD [address] [place] [address] PCP - General 03/15/16 09/29/18 documented as of this encounter
--- OUTSIDE RECORDS SUMMARY | 2024-08-03 13:48 | XMS_ITS | Encounter Summary ---
Author Organization [facility] Address [address] [place] [address] Care Team Providers Care Picture Frame Maker Name Role Phone Yossi Torres MD Primary Care Provider +1- [phone] Reason for Visit * Reason Onset Date Comments Appointment Related 02/06/2016 was schedule d for 03/18/16 Encounter Details Date Type Department Care Team (Late st Contact Info) Description 02/06/2016 Telephone [facility] Endocrinology - [facility] [address] [place] [address] Wilder Zaidi, 62 [facility] [address] [place] [address] Appointment Related (was scheduled for [...] EDT Reason for Call: Appointment Related Summary/Symptoms: [facility] is wondering when patient's upcoming appointment was. The 03/18/16 was canceled, and not only would they like a call when it is scheduled, but his sister Bettinaas well. Josefina Rivera 02/06/2016 15:04 documented in this encounter Plan of Treatment Upcoming Encounters Date Type Department Care Team (Late st Contact Info) Description 10/01/2024 13:40 EDT Office Visit [facility] Endocrinology - [facility] [address] [place] [address] Wilder Zaidi, 62 [facility] [address] [place] [phone] documented as of this encounter Visit Diagnoses Not on filedocumented in this encounter Care Teams Picture Frame Maker Relationship Specialty Start Date End Date Yossi Torres MD [address] [place] [address] [address] [place] [phone] PCP - General 04/17/11 03/14/16 documented as of this encounter
--- OUTSIDE RECORDS SUMMARY | 2024-08-03 13:48 | XMS_ITS | Encounter Summary ---
Author Organization [facility] Address [address] [place] [address] Care Team Providers Care Body Former Name Role Phone Yossi Torres MD Primary Care Provider +1 [phone] Reason for Visit * Reason Comments Other Encounter Details Date Type Department Care Team (Late st Contact Info) Description 08/25/2014 Refill [facility] Endocrinology - [facility] [address] [place], [place] [phone] Day Littlejohn MD PhD [address] [facility] [address] [place] [address] Other Social History Tobacco Use [...] EDT Office Visit [facility] Endocrinology [facility] [address] [place] [address] Wilder Zaidi, [address] [facility] [address] [place] [address] documented as of this encounter Visit Diagnoses Not on filedocumented in this encounter Discontinued Medications Medication Sig Discontinue Reason Start Date End Da te levothyroxine (SYNTHROID) 150 mcg tablet Take 1 Tab by mouth daily. Reorder 09/01/2013 08/25/2014 documented as of this encounter Care Teams Body Former Relationship Specialty Start Date End Date Yossi Torres MD [address] [place] [address] [address] [place] [phone] PCP - General 04/17/11 03/14/16 documented as of this encounter
--- OUTSIDE RECORDS SUMMARY | 2024-08-03 13:48 | XMS_ITS | Encounter Summary ---
Author Organization [facility] Address [address] [place] [address] Care Team Providers Care Price Accuracy Supervisor Name Role Phone Yossi Torres MD Primary Care Provider +1 [phone] Emilee Cody MD Primary Care Provider + Reason for Visit * Reason Onset Date Comments Results 08/05/2014 Encounter Details Date Type Department Care Team (Late st Contact Info) Description 08/05/2014 Telephone [facility] Endocrinology - [facility] [address] [place] [address] Wilder Zaidi DO [address] [facility] [address] [place] [address] Results Social History Tobacco Use [...] 1317 EST Received faxed lab results from [facility] Sodium--145 Range (137-145) * Telephone Encounter - Wilder Zadii DO - 08/05/2014 1137 EST Spoke with [...] System [facility] End[facility]ology - [facility] [address] [place] [address] Wilder Zaidi DO [address] [facility] [address] [place] [phone] documented as of this encounter Visit Diagnoses Not on filedocumented in this encounter Care Teams Price Accuracy Supervisor Relationship Specialty Start Date End Date Yossi Torres MD [address] [place] [phone] PCP - General 04/17/11 03/14/16 Emilee Cody MD [address] [place] [address] PCP - General 03/15/16 09/29/18 documented as of this encounter
--- OUTSIDE RECORDS SUMMARY | 2024-08-03 13:48 | XMS_ITS | Encounter Summary ---
Author Organization [facility] Address [address] [place] [address] Care Team Providers Care Sound System Installer Name Role Phone Yossi Torres MD Primary Care Provider +1- [phone] Reason for Visit * Reason Onset Date Comments Labs Only 01/10/2015 Returning Call 01/10/2015 [place] Encounter Details Date Type Department Care Team (Late st Contact Info) Description 01/10/2015 Telephone [facility] - [facility] [address] [place] [address] Wilder Zaidi, 62 [facility] [address] [place] [address] Labs Only; Returning Call ([place]) [...] 01/10/2015 1603 EDT Spoke with employee at detention. They did increase his fluids to 70 [...] - 01/10/2015 1313 EDT Telephone call to [facility] lab. 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
--- OUTSIDE RECORDS SUMMARY | 2024-08-03 13:48 | XMS_ITS | Encounter Summary ---
Author Organization [facility] Address [address] [place] [address] Care Team Providers Care Pneumatic Drum Sander Name Role Phone Yossi Torres MD Primary Care Provider [phone] Reason for Visit * Reason Onset Date Comments Follow-up 03/31/2015 Encounter Details Date Type Department Care Team (Late st Contact Info) Description 03/31/2015 Telephone [facility] Endocrinology - [facility] [address] [place] [address] Wilder Zaidi, [address] [facility] [address] [place] [address] Follow-up Social History Tobacco Use [...] EDT Phone call to Lali (nurse at [facility]) Left message on her personal voice mail Per Dr. Zaidi please repeat Sodium level on Friday04/03/15. Sodium level was 146 ([phone]) * Telephone Encounter - Addie Burgess - 03/31/2015 1010 EDT Reason for Call: Follow-up Summary/Symptoms: Lali (RN) requesting a call back when nurses receive pt's sodium levels from [facility]. Addiemagali Burgess 03/31/2015 10:10 documented in this encounter Plan of Treatment Upcoming Encounters Date Type Department Care Team (Late st Contact Info) Description 10/01/2024 13:40 EDT Office Visit [facility] Endocrinology - [facility] [address] [place] [address] Wilder Zaidi, [address] [facility] [address] [place] [address] documented as of this encounter Visit Diagnoses Not on filedocumented in this encounter Care Teams Pneumatic Drum Sander Relationship Specialty Start Date End Date Yossi Torres MD [address] [place] [address] [address] [place] [phone] PCP - General 04/17/11 03/14/16 documented as of this encounter
--- OUTSIDE RECORDS SUMMARY | 2024-08-03 13:48 | XMS_ITS | Encounter Summary ---
Author Organization [facility] Address [address] [place] [address] Care Team Providers Care Teachers Aide Name Role Phone Yossi Torres MD Primary Care Provider [phone] Reason for Visit * Reason Onset Date Comments Discuss Test Results 10/19/2015 Lab work Encounter Details Date Type Department Care Team (Late st Contact Info) Description 10/19/2015 Telephone [facility] Endocrinology - [facility] [address] [place] [address] Wilder Zaidi DO [address] [facility] [address] [place] [address] Discuss Test Results (Lab work) [...] - 10/19/2015 1141 EDT Phone call to [facility] [place] Faxing results from 10/17/15 Sodium 140 (136-145) * Telephone Encounter - Josefina Rivera - 10/19/2015 1041 EDT Reason for Call: Discuss Test Results Summary/Symptoms: Lali Denise from [facility] is wanting the lab results for this patient. Please call back. Spoke with Georgia and results were not in yet. Josefina Rivera 10/19/2015 10:41 documented in this encounter Plan of Treatment Upcoming Encounters Date Type Department Care Team (Late st Contact Info) Description 10/01/2024 13:40 EDT Office Visit [facility] Endocrinology - [facility] [address] [place] [address] Wilder Zaidi DO [address] [facility] [address] [place] [address] documented as of this encounter Visit Diagnoses Not on filedocumented in this encounter Care Teams Teachers Aide Relationship Specialty Start Date End Date Yossi Torres MD [address] [place] [address] [address] [place] [phone] PCP - General 04/17/11 03/14/16 documented as of this encounter
--- OUTSIDE RECORDS SUMMARY | 2024-08-03 13:48 | XMS_ITS | Encounter Summary ---
Author Organization [facility] Address [address] [place] [address] Care Team Providers Care Take Out Waiter/Waitress Name Role Phone Emilee Cody MD Primary Care Provider + Reason for Visit * Reason Onset Date Comments Follow-up 12/19/2016 Encounter Details Date Type Department Care Team (Late st Contact Info) Description 12/19/2016 Telephone [facility] Endocrinology - [facility] [address] [place] [address] Wilder Zaidi DO [address] [facility] [address] [place] [address] Follow-up Social History Tobacco Use [...] 12/19/2016 1028 EDT Please contact the patient's mcc. I reviewed his most recent sodium that was drawn on 12/18/2016 at [facility] [place], [place]. His sodium was normal at 141. He should continue his current dose of DDAVP and current fluid levels. documented in this encounter Plan of Treatment Upcoming Encounters Date Type Department Care Team (Late st Contact Info) Description 10/01/2024 13:40 EDT Office Visit [facility] Endocrinology - [facility] [address] [place] [address] Wilder Zaidi DO [address] [facility] [address] [place] [address] documented as of this encounter Visit Diagnoses Not on filedocumented in this encounter Care Teams Take Out Waiter/Waitress Relationship Specialty Start Date End Date Emilee Cody MD [address] [place] [address] PCP - General 03/15/16 09/29/18 documented as of this encounter
--- OUTSIDE RECORDS SUMMARY | 2024-08-03 13:48 | XMS_ITS | Encounter Summary ---
Author Organization [facility] Address [address] [place] [address] Care Team Providers Care Capital Campaign Fundraiser Name Role Phone Yossi Torres MD Primary Care Provider [phone] Reason for Visit * Reason Onset Date Comments Results 10/13/2015 Encounter Details Date Type Department Care Team (Late st Contact Info) Description 10/13/2015 Telephone [facility] Endocrinology - [facility] [address] [place] [address] Belgica ChavezBRENNEN [address] [facility] [address] [place] [address] Results Social History Tobacco Use [...] Telephone Encounter - Belgica Chavez - 10/13/2015 1206 EDT Spoke to lali about Bettina fluid [...] EDT Office Visit [facility] Endocrinology - [facility] [address] [place] [address] Wilder Zaidi, [address] [facility] [address] [place] [address] documented as of this encounter Visit Diagnoses Not on filedocumented in this encounter Care Teams Capital Campaign Fundraiser Relationship Specialty Start Date End Date Yossi Torres MD [address] [place] [address] [address] [place] [phone] PCP - General 04/17/11 03/14/16 documented as of this encounter
--- OUTSIDE RECORDS SUMMARY | 2024-08-03 13:48 | XMS_ITS | Encounter Summary ---
Author Organization [facility] Address [address] [place] [address] Care Team Providers Care Conservation Policy Analyst Name Role Phone Yossi Torres MD Primary Care Provider [phone] Reason for Visit * Reason Onset Date Comments Prior Auth, Medication 01/17/2015 Encounter Details Date Type Department Care Team (Late st Contact Info) Description 01/17/2015 Telephone [facility] Endocrinology - [facility] [address] [place] [address] Wilder Zaidi, [address] [facility] [address] [place] [address] Prior Auth, Medication Social History [...] - 01/19/2015 1650 EDT Lisseth fax from [place] Medicaid with APPROVAL for: Drug NDC # and Name: [phone] - Levothyroxin Tab 150 mcg Tracking #: [id number] [place] #: [id number] Dates: 01/19/2015- 01/20/2016 Qty / Days Supply Restrictions: [place] Medicaid ID#: [id number] Called Pharmacy and they had all ready blister packed and ready to go as soon as we provided approval. * Telephone Encounter - Lucía Bundy - 01/18/2015 1104 EDT [facility] signed form back from Dr. Zaidi and faxed to [place] Medicaid at [phone] to initiate [place] process. * Telephone Encounter - Dina Otero - 01/17/2015 1712 EDT Received fax for Levothyroxine override to blister pack - the pharmacy indicates the patient lives in [place] and they can only fill 30 day supply at a time. Completed [place] Exception to required 90 day maintenance medication fill form & provided to Dr. Zaidi for signature. * Telephone Encounter - Gladys Willingham - 01/17/2015 0908 EDT Reason for Call: Prior Auth, Medication Summary/SymptomsPt said that [facility] needs [place] for levothyroxine 30 day supply not 90 day supply for bubble wrap. Please call if you have questions. Onset and Duration? na Urgent? Gladys Willingham 01/17/2015 9:08 documented in this encounter Plan of Treatment Upcoming Encounters Date Type Department Care Team (Late st Contact Info) Description 10/01/2024 13:40 EDT Office Visit [facility] Endocrinology - [facility] [address] [place] [address] Wilder Zaidi, DO [address] [facility] [address] [place] [address] documented as of this encounter Visit Diagnoses Not on filedocumented in this encounter Care Teams Conservation Policy Analyst Relationship Specialty Start Date End Date Yossi Torres MD [address] [place] [address] [address] [place] [phone] PCP - General 04/17/11 03/14/16 documented as of this encounter
--- OUTSIDE RECORDS SUMMARY | 2024-08-03 13:48 | XMS_ITS | Encounter Summary ---
Author Organization [facility] Address [address] [place] [address] Care Team Providers Care Microfilm Machine Operator Name Role Phone Yossi Torres MD Primary Care Provider [phone] Reason for Visit * Reason Comments Seizures * Referral (Routine) - Closed Specialty Diagnoses / Procedures Referred By Duyen bui Referred To Contact Neurology Diagnoses Seizure ([facility]) Yossi Torres MD Phone: tel: fax: [facility] Neurology [facility] [address] [place] [address] Phone: tel: fax: Referral ID Status Reason Start Date Expiration Date Visits Re quested Visits Authorized [id number] Closed 1 1 Encounter Details Date Type Department Care Team (Late st Contact Info) Description 12/27/2014 10:30 EDT Office Visit [facility] Neurology [facility] [address] [place], [place] [id number] Dioni Jovel MD [address] [place] [address] Seizure disorder ([facility]) (Primary Dx) Social History [...] Jovel MD - 12/27/2014 1207 EDT [facility] NEUROLOGY CONSULTATION - 12/27/2014 HISTORY: The patient is a 24-year-old right-handed gentleman seen at request of Dr Torres for evaluation of seizures. The patient was accompanied by his guardian and enginehouse brakeman. I also reviewed records from [facility]. The patient's past medical [...] [facility] he [facility] spell where he [...] general anesthesia. 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 He will follow with me in a few months or sooner if problems come. Dioni Jovel MD 11 13 AM - Dioni Jovel MD cn Dictation ID: [id number] documented in this encounter Plan of Treatment Upcoming Encounters Date Type Department Care Team (Late st Contact Info) Description 10/01/2024 13:40 EDT Office Visit [facility] Endocrinology - [place] [address] [place] [address] Wilder Zaidi, [address] [facility] [address] [place] [address] documented as of this encounter Visit Diagnoses Diagnosis Seizure disorder ([facility])- Primary Unspecified epilepsy without mention of intractable epilepsy documented in this encounter Discontinued Medications Medication Sig Discontinue Reason Start Date End Da te ZONISAMIDE ORAL Take 75 mg by mouth at bedtime. 08/24/2010 12/27/2014 documented as of this encounter Care Teams Microfilm Machine Operator Relationship Specialty Start Date End Date Yossi Torres MD [address] [place] [address] [address] [place] [phone] PCP - General 04/17/11 03/14/16 documented as of this encounter
--- OUTSIDE RECORDS SUMMARY | 2024-08-03 13:48 | XMS_ITS | Encounter Summary ---
Author Organization [facility] Address [address] [place] [address] Care Team Providers Care Package Liner Name Role Phone Emilee Cody MD Primary Care Provider + Reason for Visit * Reason Comments Pituitary Abnormality Encounter Details Date Type Department Care Team (Latest Contact Info) Description 10/31/2016 13:20 EDT Office Visit [facility] Endocrinology - [facility] [address] [place] [address] Wilder Zaidi, [address] [facility] [address] [place] [address] 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HCC-CMS) (Primary Dx); Primary [...] Miguel Angel was accompanied by the assistant statistician of his fpc. He has been living [...] No need to str ess dose. His reservoir caretaker was able to articulate how and when [...] seems stable. ?? 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 omeprazole (PRILOSEC) 20 mg capsule Take 2 Capsules by mouth daily. added in this encounter Care Teams Package Liner Relationship Specialty Start Date End Date Emilee Cody MD [address] [place] [address] PCP - General 03/15/16 09/29/18 documented as of this encounter
--- OUTSIDE RECORDS SUMMARY | 2024-08-03 13:48 | XMS_ITS | Encounter Summary ---
Author Organization [facility] Address [address] [place] [address] Care Team Providers Care Export Specialist Name Role Phone Yossi Torres MD Primary Care Provider [phone] Reason for Visit * Reason Onset Date Comments Medications Refill 03/14/2015 Encounter Details Date Type Department Care Team (Late st Contact Info) Description 03/14/2015 Refill [facility] Endocrinology - [facility] [address] [place] [address] Wilder Zaidi, [address] [facility] [address] [place] [address] Medications Refill Social History Tobacco [...] gram (1.62 %) transdermal gel pumpIndications:Jose nhypopituitarism ([facility]) Apply 3 pump actuations topically daily for 90 days Daily Max: 60.75 mg 337.5 g 0 03/15/2015 4 documented in this encounter Miscellaneous Notes * Telephone Encounter - Georgia Rice RN - 03/15/2015 1413 EDT Phone call to [facility] pharmacist I called in the Androgel, but it needs a PA, they said they faxed it 2 days ago.? I had them refax,and will give to front staff. * Telephone Encounter - Addie Burgess - 03/14/2015 1313 EDT Medication(s) Requested[facility] Last Refill Date: 11/08/14 Last Visit Date: 08/04/14 Next Visit Date: 10/23/2015 Is patient out of medication? yes Addie Burgess 03/14/2015 13:13 documented in this encounter Plan of Treatment Upcoming Encounters Date Type Department Care Team (Late st Contact Info) Description 10/01/2024 13:40 EDT Office Visit [facility] Endocrinology - [address] [address] Wilder Zaidi, DO [address] [facility] [address] [place] [address] documented as of this encounter [...] documented as of this encounter Care Teams Export Specialist Relationship Specialty Start Date End Date Yossi Torres MD [address] [place] [address] [address] [place] [phone] PCP - General 04/17/11 03/14/16 documented as of this encounter
--- OUTSIDE RECORDS SUMMARY | 2024-08-03 13:48 | XMS_ITS | Encounter Summary ---
Author Organization [facility] Address [address] [place] [address] Care Team Providers Care Sounding Device Operator Name Role Phone Yossi Torres MD Primary Care Provider [phone] Eimlee Cody MD Primary Care Provider + Reason for Visit * Reason Onset Date Comments Discuss Test Results 02/20/2015 Sodium Chec k last week Encounter Details Date Type Department Care Team (Late st Contact Info) Description 02/20/2015 Telephone [facility] Endocrinology - [facility] [address] [place] [address] Wilder Zaidi DO [address] [facility] [address] [place] [address] Discuss Test Results (Sodium Check [...] Encounter - Georgia Rice RN - 02/21/2015 6276 EDT Phone call to Lali Informed her [...] - 02/21/2015 1117 EDT Phone call to [facility] Lab Resulted on 02/15/15 Sodium-141 * Telephone Encounter - Addie Burgess - 02/20/2015 1512 EDT Reason for Call: Discuss Test Results Summary/Symptoms: Please call Lali's mobile with Sodium check results. Addie Burgess 02/20/2015 15:12 * Telephone Encounter - Belgica Camara V. - 02/20/2015 1248 EDT Please call Jonatan or Lali [facility] with Sodium Check results done at [facility] last week. documented in this encounter Plan of Treatment Upcoming Encounters Date Type Department Care Team (Late st Contact Info) Description 10/01/2024 13:40 EDT Office Visit [facility] Endocrinology - [facility] [address] [place] [address] Wilder Zaidi DO [address] [facility] [address] [place] [address] documented as of this encounter Visit Diagnoses Not on filedocumented in this encounter Care Teams Sounding Device Operator Relationship Specialty Start Date End Date Yossi Torres MD [address] [place] [address] [address] [place] [address] PCP - General 04/17/11 03/14/16 Emilee Cody MD [address] [place] [address] PCP - General 03/15/16 09/29/18 documented as of this encounter
--- OUTSIDE RECORDS SUMMARY | 2024-08-03 13:48 | XMS_ITS | Encounter Summary ---
Author Organization [facility] Address [address] [place] [address] Care Team Providers Care Hourly Caregiver Name Role Phone Yossi Torres MD Primary Care Provider [phone] Reason for Visit * Reason Onset Date Comments Medications Refill 05/03/2015 Encounter Details Date Type Department Care Team (Late st Contact Info) Description 05/03/2015 Refill [facility] Endocrinology - [facility] [address] [place] [address] Wilder Zaidi, [address] [facility] [address] [place] [address] Medications Refill Social History Tobacco [...] Requested: Levothyroxine 150mcg Pharmacy: [facility] Last Refill Date: 08/25/14 Last Visit Date: 08/04/14 Next Visit Date: 10/23/2015 Is patient out of medication? Dinorah Burgess 05/03/2015 9:56 documented in this encounter Plan of Treatment Upcoming Encounters Date Type Department Care Team (Late st Contact Info) Description 10/01/2024 13:40 EDT Office Visit [facility] Endocrinology - [facility] [address] [place] [address] Wilder Zaidi, [address] [facility] [address] [place] [address] documented as of this encounter Visit Diagnoses Not on filedocumented in this encounter Discontinued Medications Medication Sig Discontinue Reason Start Date End Da te levothyroxine (SYNTHROID) 150 mcg tablet TAKE ONE TABLET BY MOUTH EVERY DAY Reorder 08/25/2014 05/03/2015 documented as of this encounter Care Teams Hourly Caregiver Relationship Specialty Start Date End Date Yossi Torres MD [address] [place] [address] [address] [place] [phone] PCP - General 04/17/11 03/14/16 documented as of this encounter
--- OUTSIDE RECORDS SUMMARY | 2024-08-03 13:48 | XMS_ITS | Encounter Summary ---
Author Organization [facility] Address [address] [place] [address] Care Team Providers Care Polysomnography Technician Name Role Phone Yossi Torres MD Primary Care Provider [phone] Reason for Visit * Reason Onset Date Comments Orders (Non Pre-visit) 11/08/2014 MEDICATIO NS Encounter Details Date Type Department Care Team (Late st Contact Info) Description 11/08/2014 Telephone [facility] Endocrinology - [facility] [address] [place] [address] Wilder Zaidi, [address] [facility] [address] [place] [address] Orders (Non Pre-visit) (MEDICATIONS) Social [...] gram (1.62 %) transdermal gel pumpIndications:Jose nhypopituitarism ([facility]) Apply 3 pump actuations topically daily for 90 days Daily Max: 60.75 mg 75 g 1 11/08/2014 5 documented in this encounter Miscellaneous Notes * Telephone Encounter - Chavez, Belgica - 11/08/2014 1556 EDT Phoned in androgel to [facility]. Spoke to pharmacist. * Telephone Encounter - Tracy Nunez - 11/08/2014 1037 EDT Reason for Call: Orders (Non Pre-visit) Summary/Symptoms - Pt is new to his fdc, needing new orders of hydrocortisone and androgel [...] Office Visit [facility] Endocrinology - [address] [address] Wilder Zaidi, [address] [facility] [address] [place] [address] documented as of this encounter [...] documented as of this encounter Care Teams Polysomnography Technician Relationship Specialty Start Date End Date Yossi Torres MD [address] [place] [address] [address] [place] [phone] PCP - General 04/17/11 03/14/16 documented as of this encounter
--- OUTSIDE RECORDS SUMMARY | 2024-08-03 13:48 | XMS_ITS | Encounter Summary ---
Author Organization [facility] Address [address] [place] [address] Care Team Providers Care Roll Slicing Machine Tender Name Role Phone Yossi Torres MD Primary Care Provider +1 [phone] Reason for Visit * Reason Comments Hypothyroidism F/U Encounter Details Date Type Department Care Team (Latest Contact Info) Description 08/04/2014 14:20 EST Office Visit [facility] Endocrinology - [facility] [address] [place] [address] Wilder Zaidi, DO [address] [facility] [address] [place] [address] 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HCC-CMS) (Primary Dx); Primary [...] Mood seems stable. LABORATORY DATA: Obtained at [facility] on 08/01/2013 showed a sodium [...] Office Visit [facility] Endocrinology - [facility] [address] [place] [address] Wilder Zaidi, DO [address] [facility] [address] [place] [address] documented as of this encounter Results * (ABNORMAL) ELECTROLYTES (08/04/2014 15:24 EST) Sodium 125(L) 136 - 145 mEq/L 08/04/2014 20:16 EST [facility] Potassium 4.0 3.5 - 5.0 mEq/L 08/04/2014 20:16 EST [facility] Chloride 89(L) 96 - 110 mEq/L 08/04/2014 20:16 EST [facility] CO2 28 24 - 32 mEq/L 08/04/2014 20:16 EST [facility] Blood specimen (specimen) BLOOD SPECIMEN / Unknown 08/04/2014 15:24 EST 08/04/2014 19:15 EST Wilder Zaidi DO CHEMISTRY & BLOOD GAS ORDERABLES Final Result [facility] [address] [place] [address] * T3 FREE (08/04/2014 15:24 EST) T3, Free 2.5 2.3 - 4.2 pg/mL 08/04/2014 21:27 EST [facility] Blood specimen (specimen) BLOOD SPECIMEN / Unknown 08/04/2014 15:24 EST 08/04/2014 19:15 EST Wilder Zaidi DO CHEMISTRY & BLOOD GAS ORDERABLES Final Result Performing Organization Address City/[facility]/ZIP Co de Phone Number [facility] [address] [place] [address] * T4 FREE (08/04/2014 15:24 EST) Free T4 1.4 0.8 - 1.8 ng/dl 08/04/2014 21:27 EST [facility] Blood specimen (specimen) BLOOD SPECIMEN / Unknown 08/04/2014 15:24 EST 08/04/2014 19:15 EST us Wilder Zaidi DO CHEMISTRY & BLOOD GAS ORDERABLES Final Result [facility] [address] [place] [address] documented in this encounter Visit Diagnoses Diagnosis 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HCC-CMS)- Primary Panhypopituitarism 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HCC-CMS) Diabetes insipidus Gonadotropin deficiency ([facility]-CMS) Other anterior pituitary disorders Secondary hypothyroidism Other specified acquired hypothyroidism documented in this encounter Historical Medications * This list may reflect changes made after this encounter. testosterone (ANDROGEL) 1 % (50 mg/5 gram) gel packet Apply 5 g topically daily. 4 HYDROCODONE/ACET AMINOPHEN (VICODIN ORAL) Take 5 mg by mouth. 4 added in this encounter Care Teams Roll Slicing Machine Tender Relationship Specialty Start Date End Date Yossi Torres MD [address] [place] [address] [address] [place] [phone] PCP - General 04/17/11 03/14/16 documented as of this encounter
--- OUTSIDE RECORDS SUMMARY | 2024-08-03 13:48 | XMS_ITS | Encounter Summary ---
Author Organization [facility] Address [address] [place] [address] Care Team Providers Care Languages And Literature Instructor Name Role Phone Emilee Cody MD Primary Care Provider + Reason for Visit * Reason Onset Date Comments Discuss Test Results 06/13/2016 Encounter Details Date Type Department Care Team (Late st Contact Info) Description 06/13/2016 Telephone [facility] Endocrinology - [facility] [address] [place] [address] Wilder Zaidi, [address] [facility] [address] [place] [address] Discuss Test Results Social History [...] Telephone Encounter - Tracy Cowan - 06/13/2016 [address] [facility] [place] [facility] documented in this encounter Plan of Treatment Upcoming Encounters Date Type Department Care Team (Late st Contact Info) Description 10/01/2024 13:40 EDT Office Visit [facility] Endocrinology - [facility] [address] [place], [place] [phone] Wilder Zaidi, [address] [facility] [address] [place] [address] documented as of this encounter Visit Diagnoses Not on filedocumented in this encounter Care Teams Languages And Literature Instructor Relationship Specialty Start Date End Date Emilee Cody MD [address] [place] [id number] PCP - General 03/15/16 09/29/18 documented as of this encounter
--- OUTSIDE RECORDS SUMMARY | 2024-08-03 13:48 | XMS_ITS | Encounter Summary ---
Author Organization [facility] Address [address] [place] [address] Care Team Providers Care V/Stol Landing Signal Officer Name Role Phone Emilee Cody MD Primary Care Provider + Reason for Visit * Reason Onset Date Comments Medication Questions 07/16/2016 Encounter Details Date Type Department Care Team (Late st Contact Info) Description 07/16/2016 Telephone [facility] Endocrinology - [facility] [address] [place] [address] Wilder Zaidi, [address] [facility] [address] [place] [address] Medication Questions Social History Tobacco [...] Description 10/01/2024 13:40 EDT Office Visit [facility] Endocrinology - [facility] [address] [place] [address] Wilder Zaidi, 62 [facility] [address] [place] [address] documented as of this encounter Visit Diagnoses Not on filedocumented in this encounter Care Teams V/Stol Landing Signal Officer Relationship Specialty Start Date End Date Emilee Cody MD [address] [place] [address] PCP - General 03/15/16 09/29/18 documented as of this encounter
--- OUTSIDE RECORDS SUMMARY | 2024-08-03 13:48 | XMS_ITS | Encounter Summary ---
Author Organization [facility] Address [address] [place] [address] Care Team Providers Care Pastry Wrapper Name Role Phone Yossi Torres MD Primary Care Provider [phone] Emilee Cody MD Primary Care Provider + Reason for Visit * Reason Onset Date Comments Returning Call 02/02/2014 to [place] Returning Call 02/02/2014 Encounter Details Date Type Department Care Team (Late st Contact Info) Description 02/01/2014 Telephone [facility] Endocrinology - [facility] [address] [place] [address] Wilder Zaidi, [address] [facility] [address] [place] [address] Returning Call (to [place]); Returning [...] Telephone Encounter - Ludmila Harris - 02/02/2014 7838 EDT Bettina is returning Georgia's call. * [...] Description 10/01/2024 13:40 EDT Office Visit [facility] Endocrinology - [address] [address] Wilder aZidi DO [address] [facility] [address] [place] [address] documented as of this encounter Visit Diagnoses Not on filedocumented in this encounter Care Teams Pastry Wrapper Relationship Specialty Start Date End Date Yossi Torres MD [address] [place] [address] [address] [place] [phone] PCP - General 04/17/11 03/14/16 Emilee Cody MD [address] [place] [address] PCP - General 03/15/16 09/29/18 documented as of this encounter
--- OUTSIDE RECORDS SUMMARY | 2024-08-03 13:48 | XMS_ITS | Encounter Summary ---
Author Organization [facility] Address [address] [place] [address] Care Team Providers Care Shoe Repairer Helper Name Role Phone Yossi Torres MD Primary Care Provider [phone] Reason for Visit * Reason Onset Date Comments Diarrhea 08/28/2015 2 days now Medication Questions 08/28/2015 Hydrocortis one Coordination Of Care 08/30/2015 Medication clarification Encounter Details Date Type Department Care Team (Late st Contact Info) Description 08/28/2015 Telephone [facility] Endocrinology - [facility] [address] [place] [address] Wilder Zaidi, [address] [facility] [address] [place] [address] Diarrhea (2 days now); Medication [...] Encounter - Georgia Rice RN - 08/30/2015 1356 EST Phone call to Belgica at the [facility] Miguel Angel is not having diarrhea any [...] Saenz - 08/30/2015 0820 EST Belgica from [facility] would like to verify the medication that Dr. Stanley wants them to increase the dose on. He continues to have diarrhea. Pls advise * Telephone Encounter - Gladys Huang RN - 08/29/2015 0922 EST Images from the original note were not included. Message Received: Yesterday ? Guerrero Gonzalez MD Sinclair, Barbara, RN ? Yes it should be doubled, the residential physician should be notified so that he finds out thecause of the diarrhea, double dose as long as she is sick Phone call to [facility]. Above message given. Erick Kidd no longer has diarrhea so will not double dose. Verbalized understanding. No barriers to understanding. * Telephone Encounter - Gladys Huang RN - 08/28/2015 1530 EST Phone call to Adriane at [facility]. Diarrhea since mid day yesterday. Today 4 times since 8 am. No other symptoms. Feeling ok. No fever. Eating well. Drinking good. Will send to Dr. Stanley for review. * Telephone Encounter - Alicia Chi - 08/28/2015 1501 EST Reason for Call: Diarrhea and Medication Questions Summary/Symptoms: Erick Forrest, caregiver at the [facility], pt has had diarrhea for 2 days now and pt's family is wondering if the hydrocortisone should be doubled. Adriane requesting a call back today when a moment. Please call her back at [phone] or [phone]. Alicia Chi 08/28/2015 15:01 documented in this encounter Plan of Treatment Upcoming Encounters Date Type Department Care Team (Late st Contact Info) Description 10/01/2024 13:40 EDT Office Visit [facility] Endocrinology - [facility] [address] [place] [address] Wilder Zaidi, [address] [facility] [address] [place] [address] documented as of this encounter Visit Diagnoses Not on filedocumented in this encounter Care Teams Shoe Repairer Helper Relationship Specialty Start Date End Date Yossi Torres MD [address] [place] [address] [address] [place] [phone] PCP - General 04/17/11 03/14/16 documented as of this encounter
--- OUTSIDE RECORDS SUMMARY | 2024-08-03 13:48 | XMS_ITS | Encounter Summary ---
Author Organization [facility] Address [address] [place] [address] Care Team Providers Care Epidemiology Investigator Name Role Phone Yossi Torres MD Primary Care Provider [phone] Reason for Visit * Reason Onset Date Comments Discuss Test Results 02/03/2015 Sodium Leve ls Encounter Details Date Type Department Care Team (Late st Contact Info) Description 02/03/2015 Telephone [facility] Endocrinology - [facility] [address] [place] [address] Wilder Zaidi DO [address] [facility] [address] [place] [address] Discuss Test Results (Sodium Levels) [...] Belgica Chavez - 02/03/2015 0929 EDT Called [facility] drawn 01/31/15 Na level: 141 Unchanged from previous 2 wks ago. Continue current fluid restricton of 80 oz and retest again in 2 wks. * Telephone Encounter - Yany Lauren - 02/03/2015 0901 EDT Reason for Call: Discuss Test Results Summary/Symptoms: Jonatan at [facility] calling to receive Pts Sodium levels he [...] Office Visit [facility] Endocrinology - [facility] [address] [place] [address] Wilder Zaidi, [address] [facility] [address] [place] [phone] documented as of this encounter Visit Diagnoses Not on filedocumented in this encounter Care Teams Epidemiology Investigator Relationship Specialty Start Date End Date Yossi Torres MD [address] [place] [address] [address] [place] [phone] PCP - General 04/17/11 03/14/16 documented as of this encounter
--- OUTSIDE RECORDS SUMMARY | 2024-08-03 13:48 | XMS_ITS | Encounter Summary ---
Author Organization [facility] Address [address] [place] [address] Care Team Providers Care Clinical Statistical Programmer Name Role Phone Emilee Cody MD Primary Care Provider + Reason for Visit * Reason Onset Date Comments Results 04/14/2017 Encounter Details Date Type Department Care Team (Late st Contact Info) Description 04/14/2017 Telephone [facility] Endocrinology - [address] [address] Hafsa Babcock RN [address] [place] [address] Results Social History Tobacco Use Types Packs/Day [...] Encounter - Hafsa Babcock RN - 04/14/2017 8669 EDT Called Patients' sister Bettina to inform her lab results within normal limits , No change in DDAVP dosage. Please extend information to longterm. documented in this encounter Plan of Treatment Upcoming Encounters Date Type Department Care Team (Late st Contact Info) Description 10/01/2024 13:40 EDT Office Visit [facility] Endocrinology - [address], [place] [address] Wilder Zaidi DO [address] [place] [address] documented as of this encounter Visit Diagnoses Not on filedocumented in this encounter Care Teams Clinical Statistical Programmer Relationship Specialty Start Date End Date Emilee Cody MD [address] [place] [address] PCP - General 03/15/16 09/29/18 documented as of this encounter
--- OUTSIDE RECORDS SUMMARY | 2024-08-03 13:48 | XMS_ITS | Encounter Summary ---
Author Organization [facility] Address [address] [place] [address] Care Team Providers Care Community Health Program Representative Name Role Phone Yossi Torres MD Primary Care Provider [phone] Reason for Visit * Reason Comments Labs Only Encounter Details Date Type Department Care Team (Latest Contact Info) Description 08/04/2014 15:15 EST Procedure visit [facility] Endocrinology - [address] [address] Unknown, Provider, Phlebotomy, [facility] 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CMS-HCC) (HCC-CMS); [...] [facility] [address] [place] [address] Wilder Zaidi, DO [address] [facility] [address] [place] [address] documented as of this encounter [...] - 4.2 pg/mL 08/04/2014 21:27 EST [facility] Blood specimen (specimen) BLOOD SPECIMEN / Unknown 08/04/2014 15:24 EST 08/04/2014 19:15 EST Wilder Zaidi DO CHEMISTRY & BLOOD GAS ORDERABLES Final Result Performing Organization Address City/State/[facility] Co de Phone Number [facility] [address] [place] [address] * T4 FREE (08/04/2014 15:24 EST) Free T4 1.4 0.8 - 1.8 ng/dl 08/04/2014 21:27 EST [facility] Blood specimen (specimen) BLOOD SPECIMEN / Unknown 08/04/2014 15:24 EST 08/04/2014 19:15 EST Wilder Zaidi DO CHEMISTRY & BLOOD GAS ORDERABLES Final Result Performing Organization Address City/State/[facility] Co de Phone Number [facility] [address] [place] [address] * (ABNORMAL) ELECTROLYTES (08/04/2014 15:24 EST) Sodium 125(L) 136 - 145 mEq/L 08/04/2014 20:16 EST [facility] Potassium 4.0 3.5 - 5.0 mEq/L 08/04/2014 20:16 EST [facility] Chloride 89(L) 96 - 110 mEq/L 08/04/2014 20:16 EST [facility] CO2 28 24 - 32 mEq/L 08/04/2014 20:16 EST [facility] Blood specimen (specimen) BLOOD SPECIMEN / Unknown 08/04/2014 15:24 EST 08/04/2014 19:15 EST Wilder Zaidi DO CHEMISTRY & BLOOD GAS ORDERABLES Final Result Performing Organization Address [facility] Co de Phone Number [facility] [address] [place] [address] documented in this encounter Visit Diagnoses Diagnosis 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HCC-CMS) Diabetes insipidus Secondary hypothyroidism Other specified acquired hypothyroidism documented in this encounter Care Teams Community Health Program Representative Relationship Specialty Start Date End Date Yossi Torres MD [address] [place] [address] [address] [place] [phone] PCP - General 04/17/11 03/14/16 documented as of this encounter
--- OUTSIDE RECORDS SUMMARY | 2024-08-03 13:48 | XMS_ITS | Encounter Summary ---
Author Organization [facility] Address [address] [place] [address] Care Team Providers Care Cell Operation Supervisor Name Role Phone Yossi Torres MD Primary Care Provider [phone] Reason for Visit * Reason Onset Date Comments Update 04/17/2015 Encounter Details Date Type Department Care Team (Late st Contact Info) Description 04/17/2015 Telephone [facility] Endocrinology - [facility] [address] [place] [address] Wilder Zaidi, [address] [facility] [address] [place] [address] Update Social History Tobacco Use [...] Reason for Call: Update Summary/Symptoms: [facility]. Addie Burgess 04/17/2015 11:20 documented in this encounter Plan of Treatment Upcoming Encounters Date Type Department Care Team (Late st Contact Info) Description 10/01/2024 13:40 EDT Office Visit [facility] Endocrinology - [facility] [address] [place] [address] Wilder Zaidi, DO [address] [facility] [address] [place] [address] documented as of this encounter Visit Diagnoses Not on filedocumented in this encounter Care Teams Cell Operation Supervisor Relationship Specialty Start Date End Date Yossi Torres MD [address] [place] [address] [address] [place] [phone] PCP - General 04/17/11 03/14/16 documented as of this encounter
--- OUTSIDE RECORDS SUMMARY | 2024-08-03 13:48 | XMS_ITS | Encounter Summary ---
Author Organization [facility] Address [address] [place] [address] Care Team Providers Care Waste Management Specialist Name Role Phone Emilee Cody MD Primary Care Provider + Reason for Visit * Reason Onset Date Comments Results 10/07/2016 done 10/04 Follow-up 10/09/2016 sodium results Encounter Details Date Type Department Care Team (Late st Contact Info) Description 10/07/2016 Telephone [facility] Endocrinology - [facility] [address] [place] [address] Wilder Zaidi, [address] [facility] [address] [place] [address] Results (done 10/04); Follow-up (sodium [...] 1335 EDT Please contact L[facility] at [facility] [place] [facility]. His sodium on 10/04/16 was normal at 138 * Telephone Encounter - Maxine Roy - 10/09/2016 1110 EDT [facility]. Lali made aware this was pending Dr. Zaidi's review. * Telephone Encounter - Jennifer Au, HEATHER - 10/07/2016 1353 EDT Spoke with Lali, do not have labs - will kimble them down at [facility]./Jose * Telephone Encounter - Arlene Monroy - 10/07/2016 1319 EDT Per Lali from [facility] calling for sodium lab results done on 10/04/16. Lali is requestinga call back with results. documented in this encounter Plan of Treatment Upcoming Encounters Date Type Department Care Team (Late st Contact Info) Description 10/01/2024 13:40 EDT Office Visit [facility] Endocrinology - [facility] [address] [place] [address] Wilder Zaidi DO [address] [facility] [address] [place] [address] documented as of this encounter Visit Diagnoses Not on filedocumented in this encounter Care Teams Waste Management Specialist Relationship Specialty Start Date End Date Emilee Cody MD [facility] [place] [address] PCP - General 03/15/16 09/29/18 documented as of this encounter
--- OUTSIDE RECORDS SUMMARY | 2024-08-03 13:48 | XMS_ITS | Encounter Summary ---
Author Organization [facility] Address [address] [place] [address] Care Team Providers Care Pilot Submersible Name Role Phone Yossi Torres MD Primary Care Provider Reason for Visit * Reason Onset Date Comments Labs Only 08/24/2015 Encounter Details Date Type Department Care Team (Late st Contact Info) Description 08/24/2015 Telephone [facility] Endocrinology - [facility] [address] [place] [address] Wilder Zaidi DO [address] [facility] [address] [place] [address] Labs Only Social History Tobacco [...] call to Amy. Santoyo detailed message on [employer]. Call back if any questions or problems. [...] Patient had labs drawn on 08/14/[address] [facility] [place] called for results. Not in [facility]. [place] Condon 08/24/2015 13:47 documented in this encounter Plan of Treatment Upcoming Encounters Date Type Department Care Team (Late st Contact Info) Description 10/01/2024 13:40 EDT Office Visit [facility] Endocrinology - [facility] [address] [place] [address] Wilder Zaidi DO [address] [facility] [address] [place] [address] documented as of this encounter Visit Diagnoses Not on filedocumented in this encounter Care Teams Pilot Submersible Relationship Specialty Start Date End Date Yossi Torres MD [address] [place] [address] [address] [place] [phone] PCP - General 04/17/11 03/14/16 documented as of this encounter
--- OUTSIDE RECORDS SUMMARY | 2024-08-03 13:48 | XMS_ITS | Encounter Summary ---
Author Organization [facility] Address [address] [place] [address] Care Team Providers Care Group Supervisor Yard Name Role Phone Yossi Torres MD Primary Care Provider +[phone] Reason for Visit * Reason Onset Date Comments Results 04/04/2015 Encounter Details Date Type Department Care Team (Late st Contact Info) Description 04/04/2015 Telephone [facility] Endocrinology - [facility] [address] [place] [address] Belgica Chavez CDE [address] [facility] [address] [place] [address] Results Social History Tobacco Use [...] 1710 EDT Discussed with Lali nurse at [facility]. Advised of plan. She verbalized [...] Visit [facility] Endocrinology - [address] [id number] Wilder Zaidi DO [address] [facility] [address] [place] [address] documented as of this encounter Visit Diagnoses Not on filedocumented in this encounter Care Teams Group Supervisor Yard Relationship Specialty Start Date End Date Yossi Torres MD [address] [place] [address] [address] [place] [phone] PCP - General 04/17/11 03/14/16 documented as of this encounter
--- OUTSIDE RECORDS SUMMARY | 2024-08-03 13:48 | XMS_ITS | Encounter Summary ---
Author Organization [facility] Address [address] [place] [address] Care Team Providers Care Customer Management Specialist Name Role Phone Yossi Torres MD Primary Care Provider +[phone] Reason for Visit * Reason Onset Date Comments Results 05/02/2015 Encounter Details Date Type Department Care Team (Late st Contact Info) Description 05/02/[address] [address] Gladys Huang RN Results Social [...] [facility] Endocrinology [facility] [address] [place] [address] Wilder Zaidi, [address] [facility] [address] [place] [address] documented as of this encounter Visit Diagnoses Not on filedocumented in this encounter Care Teams Customer Management Specialist Relationship Specialty Start Date End Date Yossi Torres MD [address] [place] [address] [address] [place] [phone] PCP - General 04/17/11 03/14/16 documented as of this encounter
--- OUTSIDE RECORDS SUMMARY | 2024-08-03 13:48 | XMS_ITS | Encounter Summary ---
Author Organization [facility] Address [address] [place] [address] Care Team Providers Care Dog Beautician Name Role Phone Yossi Torres MD Primary Care Provider +1- [phone] Reason for Visit * Reason Onset Date Comments Results 05/02/2015 Encounter Details Date Type Department Care Team (Late st Contact Info) Description 05/02/2015 Telephone [facility] Endocr[facility]ology - [facility] [address] [place] [address] Wilder Zaidi DO 62 [facility] [address] [place] [address] Results Social History Tobacco Use [...] Left detailed message for jason strickland at [facility]. She will call back if any questions. * Telephone Encounter - Wilder Zaidi DO - 05/02/2015 0472 EDT Please contact the facility where Miguel [...] 13:40 EDT Office Visit [facility] Endocr[facility]ology - [facility] [address] [place] [address] Wilder Zaidi DO 62 [facility] [address] [place] [address] documented as of this encounter Visit Diagnoses Not on filedocumented in this encounter Care Teams Dog Beautician Relationship Specialty Start Date End Date Yossi Torres MD [address] [place] [address] [address] [place] [phone] PCP - General 04/17/11 03/14/16 documented as of this encounter
--- OUTSIDE RECORDS SUMMARY | 2024-08-03 13:48 | XMS_ITS | Encounter Summary ---
Author Organization [facility] Address [address] [place] [address] Care Team Providers Care Talent Development Coordinator Name Role Phone Yossi Torres MD Primary Care Provider [phone] Emilee Cody MD Primary Care Provider + Reason for Visit * Reason Onset Date Comments Results 01/19/2015 Medication Management 01/19/2015 Encounter Details Date Type Department Care Team (Late st Contact Info) Description 01/19/2015 Telephone [facility] Endocrinology - [facility] [address] [place] [address] Wilder Zaidi, 62 [facility] [address] [place] [address] Results; Medication Management Social History [...] Results and Medication Management Summary/Symptoms: Please call [facility] and speak to Jonatan or Lali. They have questions about Fluid restriction for Miguel Angel. Requesting call back today when a moment. Alicia Chi 01/19/2015 11:52 * Telephone Encounter - Wilder Zaidi DO - 01/19/2015 1133 EDT Please contact patient via phone. [facility] . Advise patient's caretakers that his sodium wasnormal at 141. Please continue current dose of DDAVP and fluid restriction. Repeat sodium and 14 days documented in this encounter Plan of Treatment Upcoming Encounters Date Type Department Care Team (Late st Contact Info) Description 10/01/2024 13:40 EDT Office Visit [facility] Endocrinology - [facility] [address] [place], [place] [phone] Wilder Zaidi DO 62 [facility] [address] [place] [address] documented as of this encounter Visit Diagnoses Not on filedocumented in this encounter Care Teams Talent Development Coordinator Relationship Specialty Start Date End Date Yossi Torres MD [address] [place] [address] [facility] 2 [place] [phone] PCP - General 04/17/11 03/14/16 Emilee Cody MD [address] [place] [address] PCP - General 03/15/16 09/29/18 documented as of this encounter
--- OUTSIDE RECORDS SUMMARY | 2024-08-03 13:48 | XMS_ITS | Encounter Summary ---
Author Organization [facility] Address [address] [place] [address] Care Team Providers Care Food Services Director Name Role Phone Yossi Torres MD Primary Care Provider +[phone]- [phone] Reason for Visit * Reason Onset Date Comments Results 12/30/2014 Encounter Details Date Type Department Care Team (Late st Contact Info) Description 12/30/2014 Telephone [facility] Endocrinology - [facility] [address] [place] [address] Wilder Zaidi DO 62 [facility] [address] [place] [address] Results Social History Tobacco Use [...] Pt has sodium level testing todayt @ [facility] and caregiver is calling for results. Onset and Duration? na Urgent? Gladys Willingham 12/30/2014 14:15 documented in this encounter Plan of Treatment Upcoming Encounters Date Type Department Care Team (Late st Contact Info) Description 10/01/2024 13:40 EDT Office Visit [facility] Endocrinology - [facility] [address] [place] [address] Wilder Zaidi, 62 [facility] [address] [place] [address] documented as of this encounter Visit Diagnoses Not on filedocumented in this encounter Care Teams Food Services Director Relationship Specialty Start Date End Date Yossi Torres MD [address] [place] [address] [address] [place] [phone] PCP - General 04/17/11 03/14/16 documented as of this encounter
--- OUTSIDE RECORDS SUMMARY | 2024-08-03 13:49 | XMS_ITS | Encounter Summary ---
Author Organization [facility] Address [address] [place] [address] Care Team Providers Care Special Order Jeweler Name Role Phone Yossi Torres MD Primary Care Provider [phone]- [phone] Reason for Visit * Reason Onset Date Comments Other 06/23/2012 sodium 134 Encounter Details Date Type Department Care Team (Late st Contact Info) Description 06/23/2012 Telephone [facility] Endocrinology - [facility] [address] [place] [address] Wilder Zaidi DO 62 [facility] [address] [place] [address] Other (sodium 134) Social History [...] Visit [facility] Endocrinology - [facility] [address] [place], [place] [phone] Wilder Zaidi DO 62 [facility] [address] [place] [phone] documented as of this encounter Visit Diagnoses Not on filedocumented in this encounter Care Teams Special Order Jeweler Relationship Specialty Start Date End Date Yossi Torres MD [address] [place] [address] [address] [place] [phone] PCP - General 04/17/11 03/14/16 documented as of this encounter
--- OUTSIDE RECORDS SUMMARY | 2024-08-03 13:49 | XMS_ITS | Encounter Summary ---
Author Organization [facility] Address [address] [place] [address] Care Team Providers Care Wage And Salary Administrator Name Role Phone Yossi Torres MD Primary Care Provider [phone] Reason for Visit * Reason Onset Date Comments Other 01/06/2012 not urinating ye sterday Encounter Details Date Type Department Care Team (Late st Contact Info) Description 01/06/2012 Telephone [facility] Endocrinology - [facility] [address] [place] [address] Wilder Zaidi DO 62 [facility] [address] [place] [address] Other (not urinating yesterday) Social [...] EDT Office Visit [facility] Endocrinology - [address] [phone] Wilder Zaidi DO 62 [facility] [address] [place] [phone] documented as of this encounter Visit Diagnoses Not on filedocumented in this encounter Care Teams Wage And Salary Administrator Relationship Specialty Start Date End Date Yossi Torres MD [address] [place] [address] [address] [place] [phone] PCP - General 04/17/11 03/14/16 documented as of this encounter
--- OUTSIDE RECORDS SUMMARY | 2024-08-03 13:49 | XMS_ITS | Encounter Summary ---
Author Organization [facility] Address [address] [place] [address] Care Team Providers Care Locomotive Supervisor Name Role Phone Yossi Torres MD Primary Care Provider [phone]- [phone] Reason for Visit * Reason Onset Date Comments Results 05/09/2011 Encounter Details Date Type Department Care Team (Late st Contact Info) Description 05/09/2011 Telephone [facility] Endocrinology - [facility] [address] [place] [address] Wilder Zaidi DO 62 [facility] [address] [place] [address] Results Social History Tobacco Use [...] Visit [facility] Endocrinology - [facility] [address] [place] [address] Wilder Zaidi, DO 62 [facility] [address] [place] [address] documented as of this encounter Visit Diagnoses Not on filedocumented in this encounter Care Teams Locomotive Supervisor Relationship Specialty Start Date End Date Yossi Torres MD [address] [place] [address] 2 [place] [phone] PCP - General 04/17/11 03/14/16 documented as of this encounter
--- OUTSIDE RECORDS SUMMARY | 2024-08-03 13:49 | XMS_ITS | Encounter Summary ---
Author Organization [facility] Address [address] [place] [address] Care Team Providers Care Main Galley Scullion Name Role Phone Yossi Torres MD Primary Care Provider [phone] Emilee Cody MD Primary Care Provider + Reason for Visit * Reason Onset Date Comments Results 10/08/2012 Encounter Details Date Type Department Care Team (Late st Contact Info) Description 10/08/2012 Telephone [facility] Endocrinology - [facility] [address] [place] [address] Wilder Zaidi DO 62 [facility] [address] [place] [address] Results Social History Tobacco Use [...] Encounter - Georgia Rice RN - 10/08/2012 1465 EDT Phone call to Bettina (pt's sister) [...] Info) Description 10/01/2024 13:40 EDT Office Visit [facility] Endocrinology - [facility] [address] [place] [address] Wilder Zaidi DO 62 [facility] [address] [place] [address] documented as of this encounter Visit Diagnoses Not on filedocumented in this encounter Care Teams Main Galley Scullion Relationship Specialty Start Date End Date Yossi Torres MD [address] [place] [phone] PCP - General 04/17/11 03/14/16 Emilee Cody MD [address] [place] [address] PCP - General 03/15/16 09/29/18 documented as of this encounter
--- OUTSIDE RECORDS SUMMARY | 2024-08-03 13:49 | XMS_ITS | Encounter Summary ---
Author Organization [facility] Address [address] [place] [address] Care Team Providers Care Data Entry Analyst Name Role Phone Yossi Torres MD Primary Care Provider [phone]- [phone] Reason for Visit * Reason Comments Pituitary Abnormality f/u Encounter Details Date Type Department Care Team (Latest Contact Info) Description 05/03/2011 11:20 EDT Office Visit [facility] Endocrinology - [facility] [address] [place] [address] Wilder Zaidi, 62 [facility] [address] [place] [address] 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CMS-HCC) (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 Radha Conteh is here from [facility] as well as both his caretakers. I received a letter from Dr Rondon on 03/26/2011 where he expressed concern that the caregivers had told him that there was some increase in urine volume and behavioral issues, that Miguel Angel's dairy department manager did not contact my office with these [...] and symptoms of hyponatremia today with the dairy department manager, nurse and patient's sister, although the subtle [...] DO - Job ID: SM Doc ID: [id number] Ext Doc ID: [id number] cc: Yossi Torres MD * Wilder Zaidi DO - 05/09/2011 0941 EDT This office note has been dictated. documented in this encounter Plan of Treatment Upcoming Encounters Date Type Department Care Team (Late st Contact Info) Description 10/01/2024 13:40 EDT Office Visit [facility] Endocrinology - [facility] [address] [place], [place] [phone] Wilder Zaidi DO [address] 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
--- OUTSIDE RECORDS SUMMARY | 2024-08-03 13:49 | XMS_ITS | Encounter Summary ---
Author Organization [facility] Address [address] [place] [address] Care Team Providers Care Senior Trainer Name Role Phone Yossi Torres MD Primary Care Provider Emilee Cody MD Primary Care Provider + Ren Vaz MD Primary Care Provider [phone] Reason for Visit * Reason Comments Other Encounter Details Date Type Department Care Team (Late st Contact Info) Description 07/27/2013 Refill [facility] Endocrinology - [facility] [address] [place] [address] Wilder Zaidi, 62 [facility] [address] [place] [address] Other Social History Tobacco Use [...] [facility] Endocrinology - [place] [address] [place] [address] Wilder Zaidi, 62 [facility] [address] [place] [address] documented as of this encounter Visit Diagnoses Not on filedocumented in this encounter Discontinued Medications Medication Sig Discontinue Reason Start Date End Da te desmopressin (DDAVP) 0.1 mg tablet TAKE ONE TABLET BY MOUTH EVERY DAY AND TAKE 1/2 TABLET EVERY EVENING Dose adjustment 04/19/2013 07/29/2013 documented as of this encounter Care Teams Senior Trainer Relationship Specialty Start Date End Date Yossi Torres MD [address] [place] [address] [phone] PCP - General 04/17/11 03/14/16 Emilee Cody MD [address] [place] [phone] PCP - General 03/15/16 09/29/18 Ren Vaz MD [address] [place] [address] [place] [address] PCP - General 09/30/18 documented as of this encounter
--- OUTSIDE RECORDS SUMMARY | 2024-08-03 13:49 | XMS_ITS | Encounter Summary ---
Author Organization [facility] Address [address] [place] [address] Care Team Providers Care Icer Machine Operator Name Role Phone Yossi Torres MD Primary Care Provider [phone] Encounter Details Date Type Department Care Team (Latest Contact Info) Description 07/29/2013 Orders Only [facility] Endocrinology - [address] [address] Tejal Carreno, RN CDE Panhypopituitarism [...] Info) Description 10/01/2024 13:40 EDT Office Visit [facility] Endocrinology [facility] 62 [place] [address] Wilder Zaidi, 62 [facility] [address] [place] [address] documented as of this encounter Visit Diagnoses Diagnosis Panhypopituitarism (HCC-CMS)- Primary Panhypopituitarism documented in this encounter Care Teams Icer Machine Operator Relationship Specialty Start Date End Date Yossi Torres MD [address] [place] [address] [address] [place] [phone] PCP - General 04/17/11 03/14/16 documented as of this encounter
--- OUTSIDE RECORDS SUMMARY | 2024-08-03 13:49 | XMS_ITS | Encounter Summary ---
Author Organization [facility] Address [address] [place] [address] Care Team Providers Care Pier Master Name Role Phone Yossi Torres MD Primary Care Provider [phone] Reason for Visit * Reason Onset Date Comments Results 07/29/2013 Encounter Details Date Type Department Care Team (Late st Contact Info) Description 07/29/2013 Telephone [facility] Endocrinology - [facility] 62 [place] [address] Wilder Zaidi, 62 [facility] [address] [place] [address] Results Social History Tobacco Use [...] reviewed the patient's mostrecent laboratory results from [facility] dated 07/26/13. Advise that sodium [...] [facility] End[facility] - [address] [address] Wilder Zaidi DO [address] [place] [address] [address] [place] [address] documented as of this encounter Visit Diagnoses Not on filedocumented in this encounter Discontinued Medications Medication Sig Discontinue Reason Start Date End Da te levothyroxine (SYNTHROID) 200 mcg tabletIndications:Gonadotro pin deficiency (HCC-CMS),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HCC-CMS),Panhypopituitaris m (HCC-CMS),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HCC-CMS),Secondary hypothyroidism Take 1 Tab by mouth daily. Dose adjustment 07/26/2013 07/29/2013 documented as of this encounter Care Teams Pier Master Relationship Specialty Start Date End Date Yossi Torres MD [address] [place] [address] [address]O [address] [place] [phone] PCP - General 04/17/11 03/14/16 documented as of this encounter
--- OUTSIDE RECORDS SUMMARY | 2024-08-03 13:49 | XMS_ITS | Encounter Summary ---
Author Organization [facility] Address [address] [place] [address] Care Team Providers Care Print Shop Helper Name Role Phone Yossi Torres MD Primary Care Provider [phone] Reason for Visit * Reason Onset Date Comments Other 01/27/2014 Encounter Details Date Type Department Care Team (Late st Contact Info) Description 01/27/2014 Telephone [facility] [address] [place] [address] Wilder Zaidi, 62 [facility] [address] [place] [address] Other Social History Tobacco Use [...] Office Visit [facility] Endocrinology [address] [address] Wilder Zaidi, DO 62 [facility] [address] [place] [address] documented as of this encounter Visit Diagnoses Not on filedocumented in this encounter Care Teams Print Shop Helper Relationship Specialty Start Date End Date Yossi Torres MD [address] [place] [address] [facility] 2 [place] [phone] PCP - General 04/17/11 03/14/16 documented as of this encounter
--- OUTSIDE RECORDS SUMMARY | 2024-08-03 13:49 | XMS_ITS | Encounter Summary ---
Author Organization [facility] Address [address] [place] [address] Care Team Providers Care Bilingual Sales Representative Name Role Phone Yossi Torres MD Primary Care Provider [phone] Reason for Visit * Reason Onset Date Comments Medications Refill 06/18/2011 Encounter Details Date Type Department Care Team (Late st Contact Info) Description 06/18/2011 Refill [facility] [address] [place] [address] Georgia Rice RN Medications Refill [...] Info) Description 10/01/2024 13:40 EDT Office Visit [facility] [address] [place] [address] Wilder Zaidi DO 62 [facility] [address] [place] [address] documented as of this encounter Visit Diagnoses Not on filedocumented in this encounter Discontinued Medications Medication Sig Discontinue Reason Start Date End Da te testosterone (ANDROGEL) 1 %(50 mg/5 gram) gel Place 5 g onto the skin daily. Reorder 07/27/2010 06/18/2011 documented as of this encounter Care Teams Bilingual Sales Representative Relationship Specialty Start Date End Date Yossi Torres MD [address] [place] [address] DR [address]O [address] [place] [phone] PCP - General 04/17/11 03/14/16 documented as of this encounter
--- OUTSIDE RECORDS SUMMARY | 2024-08-03 13:49 | XMS_ITS | Encounter Summary ---
Author Organization [facility] Address [address] [place] [address] Care Team Providers Care Demand Generator Manager Name Role Phone Yossi Torres MD Primary Care Provider +1 [phone] Reason for Visit * Reason Onset Date Comments Abnormal Lab 09/12/2013 Encounter Details Date Type Department Care Team (Late st Contact Info) Description 09/12/2013 Telephone [facility] Endocrinology - [facility] [address] [place] [address] Day Littlejohn MD PhD 62 [facility] [address] [place] [address] Abnormal Lab Social History Tobacco [...] encounter Miscellaneous Notes * Telephone Encounter - Dya Littlejohn MD - 09/12/2013 5092 EDT Called from [facility] that [...] Description 10/01/2024 13:40 EDT Office Visit [facility] Endocrinology - [facility] [address] [place] [address] Wilder Zaidi, 62 [facility] [address] [place] [address] documented as of this encounter Visit Diagnoses Not on filedocumented in this encounter Care Teams Demand Generator Manager Relationship Specialty Start Date End Date Yossi Torres MD [address] [place] [address] 2 [place] [phone] PCP - General 04/17/11 03/14/16 documented as of this encounter
--- OUTSIDE RECORDS SUMMARY | 2024-08-03 13:49 | XMS_ITS | Encounter Summary ---
Author Organization [facility] Address [address] [place] [address] Care Team Providers Care Bobbin Presser Name Role Phone Yossi Torres MD Primary Care Provider +[phone] Reason for Visit * Reason Comments Pituitary Abnormality Encounter Details Date Type Department Care Team (Latest Contact Info) Description 07/26/2013 11:00 EST Office Visit [facility] Endocrinology - [facility] 62 [place], [place] [phone] Wilder Zaidi, 62 [facility] [address] [place] [address] Gonadotropin deficiency (CMS-HCC) (HCC-CMS) (Primary [...] he said he was sad by his bale opener today. Mood has been stable according to his bale opener and sister. 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 Currently lives with his caretakers accompanied today by his bale opener and his sister, Bettina. Central diabetes insipidus [...] Office Visit [facility] Endocrinology - [address] [address] Wilder Zaidi DO 62 [facility] [address] [place] [address] documented as of this encounter Results * (ABNORMAL) HEMAGRAM (07/26/2013 12:17 EST) Pathologist [facility] WBC 4.58 4.0 - 10.4 K/cmm [facility] [...] Final Result Performing Organization Address [facility] Co de Phone Number [facility] [address] [place] [address] * (ABNORMAL) T4 FREE (07/26/2013 12:17 EST) Free T4 2.3(H) 0.8 - 1.8 ng/dL [facility] Blood specimen (specimen) 07/26/2013 12:17 EST 07/26/2013 15:09 EST Wilder Zaidi DO CHEMISTRY & BLOOD GAS ORDERABLES Final Result Performing Organization Address [facility] Co de Phone Number [facility] [address] [place] [address] * (ABNORMAL) ELECTROLYTES (07/26/2013 12:17 EST) Sodium [...] ORDERABLES Final Result [facility] [address] [place] [address] documented in this encounter Visit Diagnoses Diagnosis [...] 4 added in this encounter Care Teams Bobbin Presser Relationship Specialty Start Date End Date Yossi Torres MD [address] [place] [address] [address] [place] [phone] PCP - General 04/17/11 03/14/16 documented as of this encounter
--- OUTSIDE RECORDS SUMMARY | 2024-08-03 13:49 | XMS_ITS | Encounter Summary ---
Author Organization [facility] Address [address] [place] [address] Care Team Providers Care Cable Inspector Name Role Phone Akil Serrano MD Primary Care Provider [phone] Reason for Visit * Reason Onset Date Comments Results 11/30/2010 his sodium was 1 40 (down from 151 the week before) from 100 oz water for several dys (4 days?) I am having them go back to 60 oz today and recheck Friday Encounter Details Date Type Department Care Team (Late st Contact Info) Description 11/30/2010 Telephone [facility] Endocrinology - [address] [address] Ramon Lucero MD [facility] [address] [place] [address] Results (his sodium was 140 [...] Telephone Encounter - Ramon Lucero - 11/30/2010 8844 EDT Sodium came down to 140 on 100 oz of water daily. I spoke with his sister Bettina and told her to godown to 80 oz on , 11/29. Then today, 11/30 I got nervous and asked the critical care nurse specialist to go downto 60 oz again and recheck Friday. She understands. He's behaving normally and stools are more formed (had some loose stools). documented in this encounter Plan of Treatment Upcoming Encounters Date Type Department Care Team (Late st Contact Info) Description 10/01/2024 13:40 EDT Office Visit [facility] Endocrinology - [facility] [address] [place], [place] [id number] Wilder Zaidi, 62 [facility] [address] [place] [phone] documented as of this encounter Visit Diagnoses Not on filedocumented in this encounter Care Teams Cable Inspector Relationship Specialty Start Date End Date Akil Serrano MD [address] [facility] [address] [place] [address] PCP - General 02/21/10 04/16/11 documented as of this encounter
--- OUTSIDE RECORDS SUMMARY | 2024-08-03 13:49 | XMS_ITS | Encounter Summary ---
Author Organization [facility] Address [address] [place] [address] Care Team Providers Care Laundry Tech Name Role Phone Yossi Torres MD Primary Care Provider [phone] Reason for Visit * Reason Onset Date Comments Results 12/25/2011 Encounter Details Date Type Department Care Team (Late st Contact Info) Description 12/25/2011 Telephone [facility] Endocrinology - [facility] [address] [place] [address] Wilder Zaidi, 62 [facility] [address] [place] [address] Results Social History Tobacco Use [...] Encounter - Marta Rice RN - 12/25/2011 8866 EDT Phone call to Miguel Angel's home (left message for caregiver to call back) Phone call from Bettina (his guardian)--informed her of Dr. Zaidi's message below. * Telephone Encounter - Wilder Zaidi DO - 12/25/2011 4769 EDT Please contact Miguel Angel's caretakers by phone. [facility] dated 12/21/11 show normal sodium at 143. Kidney and thyroid function tests were normal. documented in this encounter Plan of Treatment Upcoming Encounters Date Type Department Care Team (Late st Contact Info) Description 10/01/2024 13:40 EDT Office Visit [facility] Endocrinology - [facility] [address] [place] [address] Wilder Zaidi DO 62 [facility] [address] [place] [address] documented as of this encounter Visit Diagnoses Not on filedocumented in this encounter Care Teams Laundry Tech Relationship Specialty Start Date End Date Yossi Torres MD [address] [place] [address] [facility] 2 [place] [phone] PCP - General 04/17/11 03/14/16 documented as of this encounter
--- OUTSIDE RECORDS SUMMARY | 2024-08-03 13:49 | XMS_ITS | Encounter Summary ---
Author Organization [facility] Address [address] [place] [address] Care Team Providers Care Machinist Apprentice Wood Name Role Phone Yossi Torres MD Primary Care Provider Emilee Cody MD Primary Care Provider + Ren Vaz MD Primary Care Provider [phone] Reason for Visit * Reason Onset Date Comments Follow-up 09/07/2013 Update 09/07/2013 Encounter Details Date Type Department Care Team (Late st Contact Info) Description 09/07/[address] [facility] Endocrinology - [facility] [address] [place] [address] Wilder Zaidi, 62 [facility] [address] [place] [address] Follow-up; Update Social History Tobacco [...] got a verbal result from lab at [facility] of 152. She is wondering if pt [...] Office Visit [facility] Endocrinology - [facility] [address] [place] [address] Wilder Zaidi, 62 [facility] [address] [place] [address] documented as of this encounter Visit Diagnoses Not on filedocumented in this encounter Care Teams Machinist Apprentice Wood Relationship Specialty Start Date End Date Yossi Torres MD [address] [place] [address] [phone] PCP - General 04/17/11 03/14/16 Emilee Cody MD [address] [place] [phone] PCP - General 03/15/16 09/29/18 Ren Vaz MD [address] [place] [address] [place] [address] PCP - General 09/30/18 documented as of this encounter
--- OUTSIDE RECORDS SUMMARY | 2024-08-03 13:49 | XMS_ITS | Encounter Summary ---
Author Organization [facility] Address [address] [place] [address] Care Team Providers Care Open Claims Representative Name Role Phone Yossi Torres MD Primary Care Provider [phone] Reason for Visit * Reason Onset Date Comments Results 09/18/2011 Encounter Details Date Type Department Care Team (Late st Contact Info) Description 09/18/2011 Telephone [facility] End[facility]ology - [facility] [address] [place] [address] Wilder Zaidi, 62 [facility] [address] [place] [address] Results Social History Tobacco Use [...] [facility] Endocrinology - [address] [phone] Wilder Zaidi DO 62 [facility] [address] [place] [phone] documented as of this encounter Visit Diagnoses Not on filedocumented in this encounter Care Teams Open Claims Representative Relationship Specialty Start Date End Date Yossi Torres MD [address] [place] [address] [address] [place] [phone] PCP - General 04/17/11 03/14/16 documented as of this encounter
--- OUTSIDE RECORDS SUMMARY | 2024-08-03 13:49 | XMS_ITS | Encounter Summary ---
Author Organization [facility] Address [address] [place] [address] Care Team Providers Care Roller Gold Leaf Name Role Phone Yossi Torres MD Primary Care Provider [phone] Reason for Visit * Reason Onset Date Comments Follow-up 09/01/2013 Encounter Details Date Type Department Care Team (Late st Contact Info) Description 09/01/2013 Telephone [facility] - [facility] [address] [place] [address] Wilder Zaidi, [address] [facility] [address] [place] [address] Follow-up Social History Tobacco Use [...] out of range as well. I called [facility] to have the results faxed to [...] since he is onvacation asking for the communications lead provider, I relayed to Bettina that the [...] Office Visit [facility] - [facility] [address] [place] [address] Wilder Zaidi, DO [address] [facility] [address] [place] [address] documented as of this encounter Visit Diagnoses Not on filedocumented in this encounter Discontinued Medications Medication Sig Discontinue Reason Start Date End Da te levothyroxine (SYNTHROID) 175 mcg tablet Take 1 Tab by mouth daily. Reorder 07/29/2013 09/01/2013 documented as of this encounter Care Teams Roller Gold Leaf Relationship Specialty Start Date End Date Yossi Torres MD [address] [place] [address] DR BUITRAGO [address] [place] [phone] PCP - General 04/17/11 03/14/16 documented as of this encounter
--- OUTSIDE RECORDS SUMMARY | 2024-08-03 13:49 | XMS_ITS | Encounter Summary ---
Author Organization [facility] Address [address] [place] [address] Care Team Providers Care Material Assembler Name Role Phone Akil Serrano MD Primary Care Provider [phone] Encounter Details Date Type Department Care Team (Latest Contact Info) Description 03/19/2011 Orders Only [facility] Endocrinology - [address] [address] Tejal Carreno RN CDE Panhypopituitarism [...] Visit [facility] Endocrinology [facility] [address] [place] [address] Wilder Zaidi, 62 [facility] [address] [place] [address] documented as of this encounter Visit Diagnoses Diagnosis Panhypopituitarism (HCC-CMS)- Primary Panhypopituitarism documented in this encounter Care Teams Material Assembler Relationship Specialty Start Date End Date Akil Serrano MD [address] [facility] [address] [place] [address] PCP - General 02/21/10 04/16/11 documented as of this encounter
--- OUTSIDE RECORDS SUMMARY | 2024-08-03 13:49 | XMS_ITS | Encounter Summary ---
Author Organization [facility] Address [address] [place] [address] Care Team Providers Care Architecture Consultant Name Role Phone Akil Serrano MD Primary Care Provider [phone] Yossi Torres MD Primary Care Provider [phone] Emilee Cody MD Primary Care Provider + Ren Vaz MD Primary Care Provider [phone] Reason for Visit * Reason Comments Other Encounter Details Date Type Department Care Team (Late st Contact Info) Description 03/18/2011 Refill [facility] Endocrinology - [facility] [address] [place] [address] Wilder Zaidi 62 [facility] [address] [place] [address] Other Social History Tobacco Use [...] EDT Office Visit [facility] Endocrinology - [facility] [address] [place] [address] Wilder Zaidi, 62 [facility] [address] [place] [address] documented as of this encounter Visit Diagnoses Not on filedocumented in this encounter Discontinued Medications Medication Sig Discontinue Reason Start Date End Da te desmopressin (DDAVP) 0.1 mg tabletIndications: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HCC-CMS) Take by mouth. Take one-half tab by mouth twice a day. 06/19/2010 03/19/2011 documented as of this encounter Care Teams Architecture Consultant Relationship Specialty Start Date End Date Akil Serrano MD 74 [facility] [place], [place] [address] PCP - General 02/21/10 04/16/11 Yossi Torres MD [address] [place] [address] [address] BUITRAGO [address] [place] [phone] PCP - General 04/17/11 03/14/16 Emilee Cody MD [address] [place] [phone] PCP - General 03/15/16 09/29/18 Ren Vaz MD [facility] [place] [address] PCP - General 09/30/18 documented as of this encounter
--- OUTSIDE RECORDS SUMMARY | 2024-08-03 13:49 | XMS_ITS | Encounter Summary ---
Author Organization [facility] Address [address] [place] [address] Care Team Providers Care Desk Top Publisher Name Role Phone Yossi Torres MD Primary Care Provider [phone] Emilee Cody MD Primary Care Provider + Ren Vaz MD Primary Care Provider [phone] Reason for Visit * Reason Comments Other Encounter Details Date Type Department Care Team (Late st Contact Info) Description 03/03/2013 Refill [facility] Endocrinology - [facility] [address] [place] [address] Wilder Zaidi, 62 [facility] [address] [place] [address] Other Social History Tobacco Use [...] Visit [facility] Endocrinology - [facility] [address] [place], [place] [phone] Wilder Zaidi, DO 62 [facility] [address] [place] [address] documented as of this encounter Visit Diagnoses Not on filedocumented in this encounter Discontinued Medications Medication Sig Discontinue Reason Start Date End Da te desmopressin (DDAVP) 0.1 mg tablet Take 1 tab PO q AM, 1/2 tab q PM - pt needs appt for further refills. Reorder 02/03/2013 03/03/2013 documented as of this encounter Care Teams Desk Top Publisher Relationship Specialty Start Date End Date Yossi Torres MD [address] [place] [phone] PCP - General 04/17/11 03/14/16 Emilee Cody MD [address] [place] [phone] PCP - General 03/15/16 09/29/18 Ren Vaz MD [address] [place] [address] [place] [address] PCP - General 09/30/18 documented as of this encounter
--- OUTSIDE RECORDS SUMMARY | 2024-08-03 13:49 | XMS_ITS | Encounter Summary ---
Author Organization [facility] Address [address] [place] [address] Care Team Providers Care Investigative Assistant Name Role Phone Yossi Torres MD Primary Care Provider [phone] Reason for Visit * Reason Onset Date Comments Results 06/01/2011 Results 06/03/2011 Encounter Details Date Type Department Care Team (Late st Contact Info) Description 06/01/2011 Telephone [facility] Endocrinology - [facility] [address] [place] [address] Wilder Zaidi DO 62 [facility] [address] [place] [address] Results; Results Social History Tobacco [...] Visit [facility] Endocrinology - [facility] [address] [place], [place] [phone] Wilder Zaidi DO 62 [facility] [address] [place] [address] documented as of this encounter Visit Diagnoses Not on filedocumented in this encounter Care Teams Investigative Assistant Relationship Specialty Start Date End Date Yossi Torres MD [address] [place] [address] DR BUITRAGO [address] [place] [phone] PCP - General 04/17/11 03/14/16 documented as of this encounter
--- OUTSIDE RECORDS SUMMARY | 2024-08-03 13:49 | XMS_ITS | Encounter Summary ---
Author Organization [facility] Address [address] [place] [address] Care Team Providers Care Mid Level Developer Name Role Phone Yossi Torres MD Primary Care Provider [phone] Reason for Visit * Reason Onset Date Comments Medication Questions 05/15/2012 Encounter Details Date Type Department Care Team (Late st Contact Info) Description 05/15/2012 Telephone [facility] Endocrinology - [facility] [address] [place] [address] Wilder Zaidi DO 62 [facility] [address] [place] [address] Medication Questions Social History Tobacco [...] Visit [facility] Endocrinology - [facility] [address] [place] [address] Wilder Zaidi, 62 [facility] [address] [place] [address] documented as of this encounter Visit Diagnoses Not on filedocumented in this encounter Care Teams Mid Level Developer Relationship Specialty Start Date End Date Yossi Torres MD [address] [place] [address] [facility] [address] [place] [phone] PCP - General 04/17/11 03/14/16 documented as of this encounter
--- OUTSIDE RECORDS SUMMARY | 2024-08-03 13:49 | XMS_ITS | Encounter Summary ---
Author Organization [facility] Address [address] [place] [address] Care Team Providers Care Assignment Officer Name Role Phone Yossi Torres MD Primary Care Provider [phone] Reason for Visit * Reason Onset Date Comments Update 09/13/2013 Encounter Details Date Type Department Care Team (Late st Contact Info) Description 09/13/2013 Telephone [facility] Endocrinology - [facility] [address] [place] [phone] Wilder Zaidi, [address] [facility] [address] [place] [address] Update Social History Tobacco Use [...] EDT Office Visit [facility] Endocrinology - [place] [address] [place] [address] Wilder Zaidi, DO [address] [facility] [address] [place] [address] documented as of this encounter Visit Diagnoses Not on filedocumented in this encounter Care Teams Assignment Officer Relationship Specialty Start Date End Date Yossi Torres MD [address] [place] [address] [facility] 2 [place] [phone] PCP - General 04/17/11 03/14/16 documented as of this encounter
--- OUTSIDE RECORDS SUMMARY | 2024-08-03 13:49 | XMS_ITS | Encounter Summary ---
Author Organization [facility] Address [address] [place] [address] Care Team Providers Care Customer Agent Name Role Phone Yossi Torres MD Primary Care Provider [phone] Reason for Visit * Reason Onset Date Comments Medications Refill 02/08/2013 Encounter Details Date Type Department Care Team (Late st Contact Info) Description 02/08/2013 Refill [facility] Endocrinology - [facility] [address] [place] [address] Wilder Zaidi, 62 [facility] [address] [place] [address] Medications Refill Social History Tobacco [...] 13:40 EDT Office Visit [facility] Endocrinology - [facility] [address] [place] [address] Wilder Zaidi, 62 [facility] [address] [place] [address] documented as of this encounter Visit Diagnoses Not on filedocumented in this encounter Care Teams Customer Agent Relationship Specialty Start Date End Date Yossi Torres MD [address] [place] [address] [address] [place] [phone] PCP - General 04/17/11 03/14/16 documented as of this encounter
--- OUTSIDE RECORDS SUMMARY | 2024-08-03 13:49 | XMS_ITS | Encounter Summary ---
Author Organization [facility] Address [address] [place] [address] Care Team Providers Care Debeader Name Role Phone Akil Serrano MD Primary Care Provider [phone] Reason for Visit * Reason Onset Date Comments Appointment Related 04/12/2011 Encounter Details Date Type Department Care Team (Late st Contact Info) Description 04/12/2011 Telephone [facility] Endocrinology - [facility] [address] [place] [address] Wilder Zaidi DO 62 [facility] [address] [place] [address] Appointment Related Social History Tobacco [...] DO - 04/15/2011 1105 EDT Please contact Migule Angel's PCP Dr. Torres to obtain contact [...] EDT Office Visit [facility] Endocrinology - [facility] [address] [place], [place] [phone] Wilder Zaidi DO 62 [facility] [address] [place] [phone] documented as of this encounter Visit Diagnoses Not on filedocumented in this encounter Care Teams Debeader Relationship Specialty Start Date End Date Akil Serrano MD [address] [facility] [address] [place] [address] PCP - General 02/21/10 04/16/11 documented as of this encounter
--- OUTSIDE RECORDS SUMMARY | 2024-08-03 13:49 | XMS_ITS | Encounter Summary ---
Author Organization [facility] Address [address] [place] [address] Care Team Providers Care Single Corner Cutter Name Role Phone Yossi Torres MD Primary Care Provider [phone] Reason for Visit * Reason Comments Other Encounter Details Date Type Department Care Team (Late st Contact Info) Description 04/19/2013 Refill [facility] Endocrinology - [facility] [address] [place] [address] Wilder Zaidi, 62 [facility] [address] [place] [address] Other Social History Tobacco Use [...] Encounter - Karen Tellez L - 04/19/2013 9590 EDT Miguel Angel has not been seen [...] 10/01/2024 13:40 EDT Office Visit [facility] Endocrinology - [facility] [address] [place] [address] Wilder Zaidi, 62 [facility] [address] [place] [address] documented as of this encounter Visit Diagnoses Not on filedocumented in this encounter Discontinued Medications Medication Sig Discontinue Reason Start Date End Da te desmopressin (DDAVP) 0.1 mg tablet TAKE ONE TABLET BY MOUTH EVERY MORNING AND 1/2 TABLET EVERY EVENING Reorder 03/03/2013 04/19/2013 documented as of this encounter Care Teams Single Corner Cutter Relationship Specialty Start Date End Date Yossi Torres MD [address] [place] [address] [address] BUITRAGO [address] [place] [phone] PCP - General 04/17/11 03/14/16 documented as of this encounter
--- OUTSIDE RECORDS SUMMARY | 2024-08-03 13:49 | XMS_ITS | Encounter Summary ---
Author Organization [facility] Address [address] [place] [address] Care Team Providers Care Student Affairs Vice President Name Role Phone Yossi Torres MD Primary Care Provider [phone] Reason for Visit * Reason Comments Other Encounter Details Date Type Department Care Team (Late st Contact Info) Description 02/02/2013 Refill [facility] Endocr[facility]ology - [facility] [address] [place], [place] [phone] Wilder Zaidi, 62 [facility] [address] [place] [address] Other Social History Tobacco Use [...] Visit [facility] Endocrinology - [facility] [address] [place] [address] Wilder Zaidi, DO 62 [facility] [address] [place] [address] documented as of this encounter Visit Diagnoses Not on filedocumented in this encounter Discontinued Medications Medication Sig Discontinue Reason Start Date End Da te desmopressin (DDAVP) 0.1 mg tablet TAKE ONE TABLET BY MOUTH EVERY MORNING AND ONE HALF TABLET AT BEDTIME Reorder 01/12/2013 02/02/2013 documented as of this encounter Care Teams Student Affairs Vice President Relationship Specialty Start Date End Date Yossi Torres MD [address] [place] [address] [address] [place] [phone] PCP - General 04/17/11 03/14/16 documented as of this encounter
--- OUTSIDE RECORDS SUMMARY | 2024-08-03 13:49 | XMS_ITS | Encounter Summary ---
Author Organization [facility] Address [address] [place] [address] Care Team Providers Care Compacting Machine Operator/Tender Name Role Phone Yossi Torres MD Primary Care Provider [phone] Reason for Visit * Reason Comments Other Encounter Details Date Type Department Care Team (Late st Contact Info) Description 04/16/2012 Refill [facility] Endocrinology [facility] [address] [place], [place] [phone] Wilder Zaidi, 62 [facility] [address] [place] [address] Other Social History Tobacco Use [...] EDT Office Visit [facility] Endocrinology [facility] [address] [place], [place] [phone] Wilder Zaidi, DO 62 [facility] [address] [place] [address] documented as of this encounter Visit Diagnoses Not on filedocumented in this encounter Discontinued Medications Medication Sig Discontinue Reason Start Date End Da te desmopressin (DDAVP) 0.1 mg tablet Take one tab in the morning and 1/2 tab at bedtime Reorder 05/03/2011 04/16/2012 documented as of this encounter Care Teams Compacting Machine Operator/Tender Relationship Specialty Start Date End Date Yossi Torres MD [address] [place] [address] [address] BUITRAGO [address] [place] [phone] PCP - General 04/17/11 03/14/16 documented as of this encounter
--- OUTSIDE RECORDS SUMMARY | 2024-08-03 13:49 | XMS_ITS | Encounter Summary ---
Author Organization [facility] Address [address] [place] [address] Care Team Providers Care Manager Transportation Planning Name Role Phone Yossi Torres MD Primary Care Provider +1 [phone] Reason for Visit * Reason Comments Labs Only Encounter Details Date Type Department Care Team (Latest Contact Info) Description 07/26/2013 12:[address] 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 Endocrinology - [facility] [address] [place] [address] Wilder Zaidi, [address] [facility] [address] [place] [address] documented as of this encounter [...] LAB HCT 45.4 39.5 - 50.2 % [facility] MCV 80(L) 81 - 95 fl [facility] MCH 27.2(L) 27.6 - 33.0 pg [facility] MCHC 33.9 32.8 - 36.4 gm/dl [facility] PLT 148 141 - 320 K/cmm [facility] RDW-CV 14.5(H) 11.8 - 14.1 % [facility] Blood specimen (specimen) 07/26/2013 12:17 EST 07/26/2013 15:09 EST Wilder Zaidi DO HEMATOLOGY & PF4 ORDER LYNDSEY Final Result Performing Organization Address [facility]/ZIP Co de Phone Number [facility] [address] [place] [address] * (ABNORMAL) T4 FREE (07/26/2013 12:17 EST) Free T4 2.3(H) 0.8 - 1.8 ng/dL [facility] Blood specimen (specimen) 07/26/2013 12:17 EST 07/26/2013 15:09 EST Wilder Zaidi DO CHEMISTRY & BLOOD GAS ORDERABLES Final Result Performing Organization Address [facility] de Phone Number [facility] [address] [place] [address] * (ABNORMAL) ELECTROLYTES (07/26/2013 12:17 EST) Sodium [...] ORDERABLES Final Result [facility] [address] [place] [address] documented in this encounter Visit Diagnoses Diagnosis 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
--- OUTSIDE RECORDS SUMMARY | 2024-08-03 13:49 | XMS_ITS | Encounter Summary ---
Author Organization [facility] Address [address] [place] [address] Care Team Providers Care Support Team Assoc Name Role Phone Akil Serrano MD Primary Care Provider Encounter Details Date Type Department Care Team (Late st Contact Info) Description 12/13/2010 Results Only Imaging [facility] [phone] Yossi Torres MD [address] [place] [address] 2 [place] [address] Social History Tobacco Use Types [...] Office Visit [facility] Endocrinology - [facility] [address] [place] [address] Wilder Zaidi, 62 [facility] [address] [place] [address] documented as of this encounter Visit Diagnoses Not on filedocumented in this encounter Care Teams Support Team Assoc Relationship Specialty Start Date End Date Akil Serrano MD [address] [place] [address] PCP - General 02/21/10 04/16/11 documented as of this encounter
--- OUTSIDE RECORDS SUMMARY | 2024-08-03 13:49 | XMS_ITS | Encounter Summary ---
Author Organization [facility] Address [address] [place] [address] Care Team Providers Care Events Associate Name Role Phone Yossi Torres MD Primary Care Provider [phone] Reason for Visit * Reason Comments Other Encounter Details Date Type Department Care Team (Late st Contact Info) Description 01/12/2013 Refill [facility] Endocrinology [facility] [address] [place], [place] [phone] Wilder Zaidi DO 62 [facility] [address] [place] [address] Other Social History Tobacco Use [...] 13:40 EDT Office Visit [facility] Endocrinology [facility] [address] [place], [place] [phone] Wilder Zaidi, DO [address] [facility] [address] [place] [address] documented as of this encounter Visit Diagnoses Not on filedocumented in this encounter Discontinued Medications Medication Sig Discontinue Reason Start Date End Da te desmopressin (DDAVP) 0.1 mg tablet TAKE ONE TABLET BY MOUTH EVERY MORNING AND 1/2 TABLET AT BEDTIME Reorder 04/16/2012 01/12/2013 documented as of this encounter Care Teams Events Associate Relationship Specialty Start Date End Date Yossi Torres MD [address] [place] [address] DR BUITRAGO [address] [place] [phone] PCP - General 04/17/11 03/14/16 documented as of this encounter
--- OUTSIDE RECORDS SUMMARY | 2024-08-03 13:49 | XMS_ITS | Encounter Summary ---
Author Organization [facility] Address [address] [place] [address] Care Team Providers Care Precision Lens Grinder Apprentice Name Role Phone Akil Serrano MD Primary Care Provider [phone] Reason for Visit * Reason Onset Date Comments Results 11/26/2010 Sodium 151 up fr om 148 last week on 80 oz daily water (increase from baseline) - I told her to go up to 100 oz daily water and recheck Encounter Details Date Type Department Care Team (Late st Contact Info) Description 11/26/2010 Telephone [facility] Endocrinology - [address] [address] Ramon Lucero MD [address] [place] [address], [address] [phone] Results (Sodium 151 up from [...] Telephone Encounter - Ramon Lucero - 11/26/2010 1701 EDT Sodium 151 up from 148 last week on 80 oz daily water (increase from baseline) - I told her to go up to 100 oz daily water and recheck . documented in this encounter Plan of Treatment Upcoming Encounters Date Type Department Care Team (Late st Contact Info) Description 10/01/2024 13:40 EDT Office Visit [facility] Endocrinology - [facility] [address] [place] [address] Wilder Zaidi, 62 [facility] [address] [place] [address] documented as of this encounter Visit Diagnoses Not on filedocumented in this encounter Care Teams Precision Lens Grinder Apprentice Relationship Specialty Start Date End Date Akil Serrano MD [address] [place] [address] PCP - General 02/21/10 04/16/11 documented as of this encounter
--- OUTSIDE RECORDS SUMMARY | 2024-08-03 13:49 | XMS_ITS | Encounter Summary ---
Author Organization [facility] Address [address] [place] [address] Care Team Providers Care Branch Lending Manager Name Role Phone Yossi Torres MD Primary Care Provider [phone] Reason for Visit * Reason Comments Hypothyroidism Pituitary Abnormality Encounter Details Date Type Department Care Team (Latest Contact Info) Description 02/01/2014 10:40 EDT Office Visit [facility] Endocrinology - [facility] [address] [place] [phone] Wilder Zaidi, 62 [facility] [address] [place] [address] Central hypothyroidism (Primary Dx) Social [...] Mood has been stable, according to the terminal manager. LABORATORY DATA: Obtained on at [facility] on 01/21/2014 showed a sodium normal [...] EDT Office Visit [facility] Endocrinology - [place] [address] [place] [address] Wilder Zaidi DO 62 [facility] [address] [place] [address] documented as of this encounter Results * T4 FREE (02/01/2014 10:50 EDT) Free T4 1.4 0.8 - 1.8 ng/dl [facility] Blood specimen (specimen) 02/01/2014 10:50 EDT 02/01/2014 15:54 EDT us Wilder Zaidi DO CHEMISTRY & BLOOD GAS ORDERABLES Final Result [facility] [address] [place] [address] documented in this encounter Visit Diagnoses Diagnosis Central hypothyroidism- Primary Unspecified hypothyroidism documented in this encounter Discontinued Medications Medication Sig Discontinue Reason Start Date End Da te testosterone (ANDROGEL) 1 %(50 mg/5 gram) gel Place 5 g onto the skin daily. Pt needs appt for further refills. 02/01/2013 02/03/2014 documented as of this encounter Care Teams Branch Lending Manager Relationship Specialty Start Date End Date Yossi Torres MD [address] [place] [address] [address]AGO [address] [place] [phone] PCP - General 04/17/11 03/14/16 documented as of this encounter
--- OUTSIDE RECORDS SUMMARY | 2024-08-03 13:49 | XMS_ITS | Encounter Summary ---
Author Organization [facility] Address [address] [place] [address] Care Team Providers Care Synchro Assembler Name Role Phone Yossi Torres MD Primary Care Provider [phone] Reason for Visit * Reason Onset Date Comments Other 09/06/2013 high sodium Encounter Details Date Type Department Care Team (Late st Contact Info) Description 09/06/2013 Telephone [facility] Endocrinology - [facility] [address] [place] [address] Wilder Zaidi, 62 [facility] [address] [place] [address] Other (high sodium ) Social [...] Telephone Encounter - Ramon Lucero - 09/06/2013 6759 EST I spoke with Miguel Angel's sister [...] Office Visit [facility] Endocrinology - [facility] [address] [place] [address] Wilder Zaidi, 62 [facility] [address] [place] [address] documented as of this encounter Visit Diagnoses Not on filedocumented in this encounter Care Teams Synchro Assembler Relationship Specialty Start Date End Date Yossi Torres MD [address] [place] [address] [address] [place] [phone] PCP - General 04/17/11 03/14/16 documented as of this encounter
--- OUTSIDE RECORDS SUMMARY | 2024-08-03 13:49 | XMS_ITS | Encounter Summary ---
Author Organization [facility] Address [address] [place] [address] Care Team Providers Care Organizational Consultant Name Role Phone Aikl Serrano MD Primary Care Provider Encounter Details Date Type Department Care Team (Late st Contact Info) Description 02/24/2011 22:08 EDT - 02/25/2011 18:38 EDT Hospital Encounter [facility] Neurosurgery Unit [address] [place] [address] Jason Olea MD [address] [facility] [place] [address] Anatoliy Perez MD [address] [place] [phone] 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CMS-HCC) (HCC-CMS) [...] past HH use. They do have a oil field worker who assist's Miguel Angel when he [...] Notes * Elsi Guillen MD - 02/24/2011 2441 EDT Neurosurgery Chief Complaint/ History of Present [...] spontaneously and on command. UE strength, 5/5, head transfer clerk bilaterally Downward toes No clonus Assesment/ Miguel [...] documented in this encounter Procedure Notes * Research Physician, Scan - 02/24/2011 0000 EDTAssociated Order(s): ECG REPORT - SCANNED documented in this encounter OR Notes * Anesthesia Procedure Notes - Research Physician, Scan - 02/24/2011 0000 EDT * Anesthesia Procedure Notes - Research Physician, Scan - 02/24/2011 0000 EDT documented in [...] No High Blood Pressure: No History of OR: No Cardiac Functional Limitations:: <4 METS Angina/Palpitations: [...] patient checks Active Multi-Disciplinary problems: FALL RISK [620397] (02/25/11) Data: patient lying with eyes closed [...] RN 02/25/2011 3:01 * Scanned Note-Null - Research Physician, Scan - 02/24/2011 0000 EDT * Scanned Note-Null - Research Physician, Scan - 02/24/2011 0000 EDT * Scanned Note-Null - Research Physician, Scan - 02/24/2011 0000 EDT documented in this encounter Plan of Treatment Upcoming Encounters Date Type Department Care Team (Late st Contact Info) Description 10/01/2024 13:40 EDT Office Visit [facility] Endocrinology - [address] [address] Wilder Zaidi, DO [address] [place] [address] [address] [place] [address] documented as of this encounter Procedures Procedure Name Priority Date/Time Associated Diagnosis Comments ECG REPORT - SCANNED 02/28/2011 11:47 EDT documented in this encounter Results * ECG REPORT - SCANNED (02/28/2011 11:47 EDT) 02/28/2011 11:4 7 EDT Narrative Procedure Note Research Physician, Scan - 02/24/2011 0:00 EDT us Scan Research Physician PROCEDURE/MINOR SURGICAL HERMES HANNON Final Result documented [...] 02/25/2011 documented in this encounter Care Teams Organizational Consultant Relationship Specialty Start Date End Date Akil Serrano MD [address] [facility] [place] [address] PCP - General 02/21/10 04/16/11 documented as of this encounter
--- OUTSIDE RECORDS SUMMARY | 2024-08-03 13:49 | XMS_ITS | Encounter Summary ---
Author Organization [facility] Address [address] [place] [address] Care Team Providers Care Extension Specialist Name Role Phone Yossi Torres MD Primary Care Provider [phone] Reason for Visit * Reason Onset Date Comments Results 04/21/2012 Follow-up 04/21/2012 Encounter Details Date Type Department Care Team (Late st Contact Info) Description 04/21/[address] [facility] Endocrinology - [facility] [address] [place] [address] Wilder Zaidi, 62 [facility] [address] [place] [address] Results; Follow-up Social History Tobacco [...] phone. I have review laboratory results from [facility] dated 04/20/12. Advise that solidum level was normal at 128. Continue current doses. documented in this encounter Plan of Treatment Upcoming Encounters Date Type Department Care Team (Late st Contact Info) Description 10/01/2024 13:40 EDT Office Visit [facility] Endocrinology - [facility] [address] [place] [address] Wilder Zaidi DO 62 [facility] [address] [place] [address] documented as of this encounter Visit Diagnoses Not on filedocumented in this encounter Care Teams Extension Specialist Relationship Specialty Start Date End Date Yossi Torres MD [address] [place] [address] [address] [place] [phone] PCP - General 04/17/11 03/14/16 documented as of this encounter
--- OUTSIDE RECORDS SUMMARY | 2024-08-03 13:49 | XMS_ITS | Encounter Summary ---
Author Organization [facility] Address [address] [place] [address] Care Team Providers Care Typing Office Worker Name Role Phone Yossi Torres MD Primary Care Provider [phone] Reason for Visit * Reason Comments Other Encounter Details Date Type Department Care Team (Late st Contact Info) Description 12/25/2011 Refill [facility] Endocrinology - [facility] [address] [place] [address] Wilder Zaidi, 62 [facility] [address] [place] [address] Other Social History Tobacco Use [...] Telephone Encounter - Karen Tellez - 12/25/2011 3683 EDT Testosterone called in to [facility] in [place] documented in this encounter Plan of Treatment Upcoming Encounters Date Type Department Care Team (Late st Contact Info) Description 10/01/2024 13:40 EDT Office Visit [facility] Endocrinology - [facility] [address] [facility] [address] [place], [place] [phone] Wilder Zaidi, DO [address] [facility] [address] [place] [address] documented as of this encounter Visit Diagnoses Not on filedocumented in this encounter Discontinued Medications Medication Sig Discontinue Reason Start Date End Da te testosterone (ANDROGEL) 1 %(50 mg/5 gram) gel Place 5 g onto the skin daily. Reorder 06/18/2011 12/25/2011 documented as of this encounter Care Teams Typing Office Worker Relationship Specialty Start Date End Date Yossi Torres MD [address] [place] [address] [address] [place] [phone] PCP - General 04/17/11 03/14/16 documented as of this encounter
--- OUTSIDE RECORDS SUMMARY | 2024-08-03 13:49 | XMS_ITS | Encounter Summary ---
Author Organization [facility] Address [address] [place] [address] Care Team Providers Care Blue Line Trimmer Name Role Phone Yossi Torres MD Primary Care Provider [phone] Encounter Details Date Type Department Care Team (Late st Contact Info) Description 02/01/2013 Orders Only [facility] Endocrinology - [address] [address] Karen Tellez RN Social History Tobacco Use [...] Notes * Georgia Rice RN - 02/04/2013 4350 EDT Called Androgel into his pharmacy. He needs an appointment before further refills per Dr. Zaidi. documented in this encounter Plan of Treatment Upcoming Encounters Date Type Department Care Team (Late st Contact Info) Description 10/01/2024 13:40 EDT Office Visit [facility] Endocrinology - [place] [address] [place] [address] Wilder Zaidi, 62 [facility] [address] [place] [address] documented as of this encounter Visit Diagnoses Not on filedocumented in this encounter Discontinued Medications Medication Sig Discontinue Reason Start Date End Da te ANDROGEL 1 %(50 mg/5 gram) gel ONE PACKET ONCE DAILY TOPICALLY Reorder 06/28/2012 02/01/2013 documented as of this encounter Care Teams Blue Line Trimmer Relationship Specialty Start Date End Date Yossi Torres MD [address] [place] [address] [facility] [address] [place] [phone] PCP - General 04/17/11 03/14/16 documented as of this encounter
--- OUTSIDE RECORDS SUMMARY | 2024-08-03 13:49 | XMS_ITS | Encounter Summary ---
Author Organization [facility] Address [address] [place] [address] Care Team Providers Care Hardware Engineering Manager Name Role Phone Yossi Torres MD Primary Care Provider [phone] Reason for Visit * Reason Onset Date Comments Abnormal Lab 01/22/2012 Encounter Details Date Type Department Care Team (Late st Contact Info) Description 01/22/2012 Telephone [facility] Endocrinology - [facility] [address] [place] [address] Wilder Zaidi DO 62 [facility] [address] [place] [address] Abnormal Lab Social History Tobacco [...] [facility] [address] [place], [place] [phone] Wilder Zaidi DO [address] [facility] [address] [place] [address] documented as of this encounter Visit Diagnoses Not on filedocumented in this encounter Care Teams Hardware Engineering Manager Relationship Specialty Start Date End Date Yossi Torres MD [address] [place] [address] [address] BUITRAGO [address] [place] [phone] PCP - General 04/17/11 03/14/16 documented as of this encounter
--- OUTSIDE RECORDS SUMMARY | 2024-08-03 13:49 | XMS_ITS | Encounter Summary ---
Author Organization [facility] Address [address] [place] [address] Care Team Providers Care Hand Fretted Instrument Maker Name Role Phone Yossi Torres MD Primary Care Provider [phone] Reason for Visit * Reason Comments Other Encounter Details Date Type Department Care Team (Late st Contact Info) Description 06/28/2012 Refill [facility] Endocrinology - [facility] [address] [place] [address] Wilder Zaidi, 62 [facility] [address] [place] [address] Other Social History Tobacco [...] Telephone Encounter - Karen Tellez - 07/09/2012 5393 EST [facility] documented in this encounter Plan of Treatment Upcoming Encounters Date Type Department Care Team (Late st Contact Info) Description 10/01/2024 13:40 EDT Office Visit [facility] Endocrinology - [facility] [address] [place] [address] Wilder Zaidi, DO [address] [facility] [address] [place] [address] documented as of this encounter Visit Diagnoses Not on filedocumented in this encounter Discontinued Medications Medication Sig Discontinue Reason Start Date End Da te ANDROGEL 1 %(50 mg/5 gram) gel APPLY 5GM (1 PACKET) ONCE DAILY TO SKIN Reorder 12/25/2011 06/28/2012 documented as of this encounter Care Teams Hand Fretted Instrument Maker Relationship Specialty Start Date End Date Yossi Torres MD [address] [place] [address] [address] [place] [phone] PCP - General 04/17/11 03/14/16 documented as of this encounter
--- OUTSIDE RECORDS SUMMARY | 2024-08-03 13:49 | XMS_ITS | Encounter Summary ---
Author Organization [facility] Address [address] [place] [address] Care Team Providers Care Deputy Sheriff Chief Name Role Phone Akil Serrano MD Primary Care Provider Encounter Details Date Type Department Care Team (Late st Contact Info) Description 01/25/2011 Results Only Imaging [facility] [phone] Yossi Torres MD [address] [place] [address] 2 [place] [address] Social History Tobacco Use Types [...] EDT Office Visit [facility]ology - [facility] [address] [place] [address] Wilder Zaidi, 62 [facility] [address] [place] [address] documented as of this [...] on filedocumented in this encounter Care Teams Deputy Sheriff Chief Relationship Specialty Start Date End Date Akil Serrano MD [address] [facility] [place] [address] PCP - General 02/21/10 04/16/11 documented as of this encounter
--- OUTSIDE RECORDS SUMMARY | 2024-08-03 13:49 | XMS_ITS | Encounter Summary ---
Author Organization [facility] Address [address] [place] [address] Care Team Providers Care Crime Analyst Name Role Phone Yossi Torres MD Primary Care Provider [phone] Reason for Visit * Reason Comments New Patient Visit head MRI Encounter Details Date Type Department Care Team (Latest Contact Info) Description 04/18/2011 12:00 EDT Office Visit [facility] Neurosurgery - Main [place] [address] [place] [address] Marvin Perez MD [address] [place] [phone] Craniopharyngioma (CMS-HCC) (HCC-CMS) (Primary Dx) Discharge [...] documented in this encounter Progress Notes * Junior Sales Representative, Scan - 04/19/2011 1045 EDT * Marvin Perez - 04/18/2011 1241 EDT This office note has been dictated. 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 Division of Neurological Surgery - Marvin Perez MD - IVELISSE Job ID: SM Doc ID: [id number] Ext Doc ID: [id number] cc: Akil Serrano MD documented in this encounter Discontinued Medications Medication Sig Discontinue Reason Start Date End Da te modafinil (PROVIGIL) 200 mg tablet Take 200 mg by mouth daily. 04/18/2011 documented as of this encounter Care Teams Crime Analyst Relationship Specialty Start Date End Date Yossi Torres MD [address] [place] [address] DR BUITRAGO [address] [place] [phone] PCP - General 04/17/11 03/14/16 documented as of this encounter
--- OUTSIDE RECORDS SUMMARY | 2024-08-03 13:49 | XMS_ITS | Encounter Summary ---
Author Organization [facility] Address [address] [place] [address] Care Team Providers Care Payroll Administrative Assistant Name Role Phone Akil Serrano MD Primary Care Provider [phone] Reason for Visit * Reason Onset Date Comments Results 02/07/2011 Encounter Details Date Type Department Care Team (Late st Contact Info) Description 02/07/2011 Telephone [facility] Endocrinology - [facility] [address] [place] [address] Wilder Zaidi DO [address] [facility] [address] [place] [address] Results Social History Tobacco [...] Visit [facility] Endocrinology - [place] [address] [facility] [place] [address] Wilder Zaidi, [address] [facility] [address] [place] [address] documented as of this encounter Visit Diagnoses Not on filedocumented in this encounter Care Teams Payroll Administrative Assistant Relationship Specialty Start Date End Date Akil Serrano MD [address] [place], [place] [phone] PCP - General 02/21/10 04/16/11 documented as of this encounter
--- OUTSIDE RECORDS SUMMARY | 2024-08-03 13:49 | XMS_ITS | Encounter Summary ---
Author Organization [facility] Address [address] [place] [address] Care Team Providers Care Drafter Engineering Name Role Phone Akil Serrano MD Primary Care Provider [phone] Reason for Visit * Reason Onset Date Comments Medications Refill 03/19/2011 Encounter Details Date Type Department Care Team (Late st Contact Info) Description 03/19/2011 Refill [facility] Endocrinology [address] [address] Tejal Carreno RN CDE Medications [...] Visit [facility] Endocrinology [address] [address] Wilder Zaidi, DO [address] [facility] [address] [place] [address] documented as of this encounter Visit Diagnoses Not on filedocumented in this encounter Care Teams Drafter Engineering Relationship Specialty Start Date End Date Akil Serrano MD [address] [place] [address] PCP - General 02/21/10 04/16/11 documented as of this encounter
--- OUTSIDE RECORDS SUMMARY | 2024-08-03 13:49 | XMS_ITS | Encounter Summary ---
Author Organization [facility] Address [address] [place] [address] Care Team Providers Care Gauge Machine Operator Name Role Phone Yossi Torres MD Primary Care Provider [phone] Reason for Visit * Reason Comments Follow-up Panhypopituitarism,d iabetes insipidus,hypogonadism Encounter Details Date Type Department Care Team (Latest Contact Info) Description 11/04/2011 13:40 EDT Office Visit [facility] Endocrinology - [facility] [address] [place] [address] Wilder Zaidi, [address] [facility] [address] [place] [address] Panhypopituitarism (HCC-CMS) (Primary Dx) Social [...] today by his sister Bettina and his education specialist from [facility] as well as both of his [...] nonverbal but seems appropriate, according to his computer systems technology instructor and sister. He was able to sit [...] caretakers. He is accompanied today by his computer systems technology instructor from [facility] as well as his sister Bettina. [...] and symptoms of hyponatremia today with the computer systems technology instructor and patient's sister, although the subtle signs [...] Office Visit [facility] Endocrinology - [facility] [address] [place], [place] [phone] Wilder Zaidi DO [address] [facility] [address] [place] [address] documented as of this encounter Visit Diagnoses Diagnosis Panhypopituitarism ([facility]-CMS)- Primary Panhypopituitarism documented in this encounter Care Teams Gauge Machine Operator Relationship Specialty Start Date End Date Yossi Torres MD [address] [place] [address] [address] [place] [phone] PCP - General 04/17/11 03/14/16 documented as of this encounter
--- OUTSIDE RECORDS SUMMARY | 2024-08-03 13:49 | XMS_ITS | Encounter Summary ---
Author Organization [facility] Address [address] [place] [address] Care Team Providers Care Patrol Captain Name Role Phone Yossi Torres MD Primary Care Provider [phone] Reason for Visit * Reason Onset Date Comments Labs Only 09/13/2012 Encounter Details Date Type Department Care Team (Late st Contact Info) Description 09/13/2012 Telephone [facility] Endocrinology - [address] [address] Ramon Lucero MD [address] [place] [address], [address] [phone] Labs Only Social History Tobacco [...] 60 oz fluid restriction. Investigate with new lining caser regarding inadvertent free water intake. Call [...] [facility] Endocrinology - [facility] [address] [place] [address] Wilder Zaidi, [address] [facility] [address] [place] [phone] documented as of this encounter Visit Diagnoses Not on filedocumented in this encounter Care Teams Patrol Captain Relationship Specialty Start Date End Date Yossi Torres MD [address] [place] [address] [address] [place] [phone] PCP - General 04/17/11 03/14/16 documented as of this encounter
--- OUTSIDE RECORDS SUMMARY | 2024-08-03 13:49 | XMS_ITS | Encounter Summary ---
Author Organization [facility] Address [address] [place] [address] Care Team Providers Care Drop Clipper Name Role Phone Yossi Torres MD Primary Care Provider [phone] Reason for Visit * Reason Onset Date Comments Results 07/23/2011 Encounter Details Date Type Department Care Team (Late st Contact Info) Description 07/23/2011 Telephone [facility] Endocrinology - [facility] [address] [place] [address] Wilder Zaidi DO [address] [facility] [address] [place] [address] Results Social History Tobacco Use [...] Encounter - Wilder Zaidi DO - 07/23/2011 8673 EST Left message with Bettina (patient's sister) regarding most recent sodium level that was normal at 137. Continue current treatment. documented in this encounter Plan of Treatment Upcoming Encounters Date Type Department Care Team (Late st Contact Info) Description 10/01/2024 13:40 EDT Office Visit [facility] Endocrinology - [place] [address] [place] [address] Wilder Zaidi, [address] [facility] [address] [place] [address] documented as of this encounter Visit Diagnoses Not on filedocumented in this encounter Care Teams Drop Clipper Relationship Specialty Start Date End Date Yossi Torres MD [address] [place] [address] [address] [place] [phone] PCP - General 04/17/11 03/14/16 documented as of this encounter
--- OUTSIDE RECORDS SUMMARY | 2024-08-03 13:50 | XMS_ITS | Encounter Summary ---
Author Organization [facility] Address [address] [place] [address] Care Team Providers Care Conditioning Coach Name Role Phone Corin Skinner MD Primary Care Provider Encounter Details Date Type Department Care Team (Late st Contact Info) Description 12/07/2008 11:45 EDT - 12/07/2008 23:59 EDT Hospital Encounter [facility] [address] [place] [address] [facility] [address] [place] [phone] Discharge Disposition: Home or Self Care Social History Tobacco Use Types Packs/Day Years Used Date Smoking Tobacco: Never Assessed Sex and Gender Information Value Date Recorded Sex Assigned at Not on file Legal Sex Male 18:35 EST Gender Identity Not on file Sexual Orientation Not on file documented as of this encounter Discharge Disposition Disposition Code Departure Means Destination Home or Self Prison documented in this encounter Plan of Treatment Upcoming Encounters Date Type Department Care Team (Late st Contact Info) Description 10/01/2024 13:40 EDT Office Visit [facility] Endocrinology - [facility] [address] [place] [address] Wilder Zaidi, DO [address] [facility] [address] [place] [phone] documented as of this encounter Procedures Procedure Name Priority Date/Time Associated Diagnosis Comments T4 FREE Routine 12/07/2008 12:01 EDT BASIC METABOLIC PANEL (BMP) Routine 12/07/2008 12:01 EDT documented in this encounter Results * T4 FREE (12/07/2008 12:01 EDT) Free T4 1.6 0.8 - 1.8 ng/dL [facility] Blood specimen (specimen) 12/07/2008 12:01 EDT 12/07/2008 12:03 EDT Skyler Edwards [facility] CHEMISTRY & BL OOD GAS ORDERABLES Final Result Performing Organization Address [facility] Co de Phone Number [facility] [address] [place] [address] * (ABNORMAL) BASIC METABOLIC PANEL (12/07/2008 12:01 [...] Calcium 9.2 8.5 - 10.5 mg/dl [facility] Calculated Calcium 9.2 8.5 - 10.5 mg/dl [facility] Glucose, Serum 65(L) 70 - 100 mg/dl [facility] Fasting? No [facility] Blood specimen (specimen) 12/07/2008 12:01 EDT 12/07/2008 12:03 EDT Skyler Edwards [facility] CHEMISTRY & BL OOD GAS ORDERABLES Final Result [facility] [address] [place] [address] documented in this encounter Visit Diagnoses Not on filedocumented in this encounter Care Teams Conditioning Coach Relationship Specialty Start Date End Date Corin Skinner MD [address] [place] [phone] PCP - General 10/24/08 08/21/09 documented as of this encounter
--- OUTSIDE RECORDS SUMMARY | 2024-08-03 13:50 | XMS_ITS | Encounter Summary ---
Author Organization [facility] Address [address] [place] [address] Care Team Providers Care Small Business Consultant Name Role Phone Akil Serrano MD Primary Care Provider [phone] Encounter Details Date Type Department Care Team (Late st Contact Info) Description 04/10/2010 Results Only [facility] [phone] Akil Serrano MD [address] [facility] [address] [place], [place] [phone] Social History Tobacco Use Types Packs/Day Years [...] Visit [facility] Endocrinology - [facility] [address] [place], [place] [phone] Wilder Zaidi, 62 [facility] [address] [place] [address] documented as of this encounter Visit Diagnoses Not on filedocumented in this encounter Care Teams Small Business Consultant Relationship Specialty Start Date End Date Akil Serrano MD [address] [place], [place] [phone] PCP - General 02/21/10 04/16/11 documented as of this encounter
--- OUTSIDE RECORDS SUMMARY | 2024-08-03 13:50 | XMS_ITS | Encounter Summary ---
Author Organization [facility] Address [address] [place] [address] Care Team Providers Care Dust Collector Treater Name Role Phone Corin Skinner MD Primary Care Provider [phone] Encounter Details Date Type Department Care Team (Latest Contact Info) Description 04/13/2009 11:12 EDT - 04/13/2009 23:59 EDT Hospital Encounter [facility] [address] [place] [address] Maxine Felix, RAT TRAPPER Discharge Disposition: Home or Self Care Social [...] [facility] - [facility] [address] [place] [address] Wilder Zaidi, [address] [facility] [address] [place] [address] documented as of this encounter [...] OR DERABLES Final Result Performing Organization Address City/State/[facility] Co de Phone Number [facility] [address] [place] [address] * T4 FREE (04/13/2009 11:41 EDT) Free T4 1.6 0.8 - 1.8 ng/dL [facility] Blood specimen (specimen) 04/13/2009 11:41 EDT 04/13/2009 11:43 EDT Maxine Felix APRN CHEMISTRY & BLOOD GAS OR DERABLES Final Result Performing Organization Address City/[facility] de Phone Number [facility] [address] [place] [address] * (ABNORMAL) OSMOLALITY (04/13/2009 11:41 EDT) Osmolality Cintia 273(L) 280 - 300 MOS/KG [facility] Blood specimen (specimen) 04/13/2009 11:41 EDT 04/13/2009 11:43 EDT Maxine Ugarte Isidro RAT TRAPPER CHEMISTRY & BLOOD GAS OR DERABLES Final Result Performing Organization Address [facility] de Phone Number [facility] [address] [place] [address] * CORTISOL (04/13/2009 11:41 EDT) Pathologist [facility] Cortisol 25 ug/dl [facility] Comment: 7-9a.m.=4.3-22.4 3-5p.m.=3.1-16.7 Blood specimen (specimen) 04/13/2009 11:41 EDT 04/13/2009 11:43 EDT Maxine Felix RAT TRAPPER CHEMISTRY & BLOOD GAS OR DERABLES Final Result Performing Organization Address [facility] de Phone Number [facility] [address] [place] [address] documented in this encounter Visit Diagnoses Not on filedocumented in this encounter Care Teams Dust Collector Treater Relationship Specialty Start Date End Date Corin Skinner MD [address] [place] [phone] PCP - General 10/24/08 2 documented as of this encounter
--- OUTSIDE RECORDS SUMMARY | 2024-08-03 13:50 | XMS_ITS | Encounter Summary ---
Author Organization [facility] Address [address] [place] [address] Care Team Providers Care Rubble Placer Name Role Phone Akil Serrano MD Primary Care Provider [phone] Reason for Visit * Reason Onset Date Comments Other 11/21/2010 Encounter Details Date Type Department Care Team (Late Contact Info) Description 11/21/2010 Telephone [facility] Endocrinology - [facility] [address] [place] [address] Wilder Zaidi, [address] [facility] [address] [place] [address] Other Social History Tobacco Use [...] Info) Description 10/01/2024 13:40 EDT Office Visit [facility] Endocrinology - [facility] [address] [place], [place] [phone] Wilder Zaiid, [address] [facility] [address] [place] [address] documented as of this encounter Visit Diagnoses Not on filedocumented in this encounter Care Teams Rubble Placer Relationship Specialty Start Date End Date Akil Serrano MD [address] [place] [address] PCP - General 02/21/10 04/16/11 documented as of this encounter
--- OUTSIDE RECORDS SUMMARY | 2024-08-03 13:50 | XMS_ITS | Encounter Summary ---
Author Organization [facility] Address [address] [place] [address] Care Team Providers Care Student Teaching Coordinator Name Role Phone Akil Serrano MD Primary Care Provider [phone] Encounter Details Date Type Department Care Team (Late st Contact Info) Description 05/23/2010 Abstract [facility] Endocrinology - [address] [address] Wilder Zaidi DO [address] [place] [address] [place] [address] Social History Tobacco Use Types Packs/Day [...] Office Visit [facility] Endocrinology [address] [address] Wilder Zaidi DO [address] [place] [address] documented as of this encounter Visit [...] 0 added in this encounter Care Teams Student Teaching Coordinator Relationship Specialty Start Date End Date Akil Serrano MD [address] [facility] [place] [address] PCP - General 02/21/10 04/16/11 documented as of this encounter
--- OUTSIDE RECORDS SUMMARY | 2024-08-03 13:50 | XMS_ITS | Encounter Summary ---
Author Organization [facility] Address [address] [place] [address] Care Team Providers Care Manager Lvn Name Role Phone Corin Skinner MD Primary Care Provider Encounter Details Date Type Department Care Team (Latest Contact Info) Description 12/28/2008 9:53 EDT - 12/28/2008 23:59 EDT Hospital Encounter [facility] [address] [place] [address] Jacqueline Early MD [address] [place] [phone] Discharge Disposition: Home or Self Care Social History Tobacco Use Types Packs/Day Years Used Date Smoking Tobacco: Never Assessed Sex and Gender Information Value Date Recorded Sex Assigned at Not on file Legal Sex Male 18:35 EST Gender Identity Not on file Sexual Orientation Not on file documented as of this encounter Discharge Disposition Disposition Code Departure Means Destination Home or Self Jail documented in this encounter Plan of Treatment Upcoming Encounters Date Type Department Care Team (Late st Contact Info) Description 10/01/2024 13:40 EDT Office Visit [facility] Endocrinology - [facility] [address] [place], [place] [phone] Wilder Zaidi, 62 [facility] [address] [place] [phone] documented as of this encounter Procedures Procedure [...] NEG [facility] Comment:PER FATHER Specific [place], Urine Unable to obtain specimen 1.005 - [...] ORDERABLES Final Re sult Performing Organization Address City/[facility]/ZIP Co de Phone Number [facility] [address] [place] [address] * DIRECT BILIRUBIN (12/28/2008 10:01 EDT) Conjugated Bilirubin 0.0 0.0 - 0.3 mg/dl [facility] Unconjugated Bilirubin 0.3 0.1 - 1.1 mg/dl [facility] 12/28/2008 10:0 1 EDT 12/28/2008 10:22 EDT us Jacqueline Early MD CHEMISTRY & BLOOD GAS ORDERABL ES Final Result Performing Organization Address [facility] de Phone Number [facility] [address] [place] [address] * (ABNORMAL) COMPREHENSIVE METABOLIC PANEL (12/28/2008 10:01 [...] Result Performing Organization Address [facility] de Phone Number [facility] [address] [place] [address] * TESTS ADDED BY PHONE (12/28/2008 10:01 EDT) Tests to be added CMP,DBIL [facility] Diagnosis Code SAME [facility] Who Called [facility] Location Code [facility] Read Back/Confirmed ? YES [facility] 12/28/2008 10:0 1 EDT 12/28/2008 10:22 EDT us Jacqueline Early MD CHEMISTRY & BLOOD GAS ORDERABL ES Final Result Performing Organization Address [facility] de Phone Number [facility] [address] [place] [address] * CORTISOL (12/28/2008 10:01 EDT) Cortisol 18 ug/dl [facility] Comment: 7-9a.m.=4.3-22.4 3-5p.m.=3.1-16.7 Blood specimen (specimen) 12/28/2008 10:01 EDT 12/28/2008 10:22 EDT us Jacqueline Early MD CHEMISTRY & BLOOD GAS ORDERABL ES Final Result Performing Organization Address [facility] de Phone Number [facility] [address] [place] [address] * ELECTROLYTES (12/28/2008 10:01 EDT) Sodium 137 [...] Result Performing Organization Address [facility] Co de Phone Number [facility] [address] [place] [address] * (ABNORMAL) GLUCOSE, SERUM (12/28/2008 10:01 EDT) Glucose, Serum 49(LL) 70 - 100 mg/dl [facility] Comment:Sample retested, res ult confirmed Blood specimen (specimen) 12/28/2008 10:01 EDT 12/28/2008 10:22 EDT us Jacqueline Early MD CHEMISTRY & BLOOD GAS ORDERABL ES Final Result Performing Organization Address [facility] de Phone Number [facility] [address] [place] [address] documented in this encounter Visit Diagnoses Not on filedocumented in this encounter Care Teams Manager Lvn Relationship Specialty Start Date End Date Corin Skinner MD [address] [place] [phone] PCP - General 10/24/08 08/21/09 documented as of this encounter
--- OUTSIDE RECORDS SUMMARY | 2024-08-03 13:50 | XMS_ITS | Encounter Summary ---
Author Organization [facility] Address [address] [place] [address] Care Team Providers Care Media Sales Executive Name Role Phone Akil Serrano MD Primary Care Provider Encounter Details Date Type Department Care Team (Late st Contact Info) Description 02/21/2010 11:47 EDT - 02/21/2010 23:59 EDT Hospital Encounter [facility] [address] [place] [address] [facility] [address] [place] [phone] Discharge Disposition: Home or Self Care Social History Tobacco Use Types Packs/Day Years Used Date Smoking Tobacco: Never Assessed Sex and Gender Information Value Date Recorded Sex Assigned at Not on file Legal Sex Male 18:35 EST Gender Identity Not on file Sexual Orientation Not on file documented as of this encounter Discharge Disposition Disposition Code Departure Means Destination Home or Self Skilled Nursing documented in this encounter Plan of Treatment Upcoming Encounters Date Type Department Care Team (Late st Contact Info) Description 10/01/2024 13:40 EDT Office Visit [facility] Endocrinology - [facility] [address] [place] [address] Wilder Zaidi, DO [address] [facility] [address] [place] [phone] documented as of this encounter Visit Diagnoses Not on filedocumented in this encounter Care Teams Media Sales Executive Relationship Specialty Start Date End Date Akil Serrano MD [address] [facility] [address] [place] [address] PCP - General 02/21/10 04/16/11 documented as of this encounter
--- OUTSIDE RECORDS SUMMARY | 2024-08-03 13:50 | XMS_ITS | Encounter Summary ---
Author Organization [facility] Address [address] [place] [address] Care Team Providers Care Manager Council Name Role Phone Akil Serrano MD Primary Care Provider [phone] Reason for Visit * Reason Onset Date Comments Other 07/09/2010 Patient had sodi um level checked, injection of Desmpressin changed to pill form. Guardian noticed urination frequency down and bright yellow in color Encounter Details Date Type Department Care Team (Late st Contact Info) Description 07/09/2010 Telephone [facility] Endocrinology - [facility] [address] [place] [address] Wilder Zaidi DO 62 [facility] [address] [place] [address] Other (Patient had sodium level [...] Encounter - Wilder Zaidi DO - 07/10/2010 4215 EST Spoke with gambling broker Marta via phone. Patient's guardian Marta and sister attempted to contact office yesterday. Message was not routed to this provider until this am. Patient with complicated medical history including central diabetes insipidus. Switched from SQ to oral DDAVP as a result of national shortage of SQ DDAVP. 4 days after switch gambling broker noticed change in behavior. ER trip last night showed sodium allegedly high. Contacted on-call endocrinologists who increased oral DDAVP to 0.1 mg int he am and 0.5 mg in the evening. Advised family to increased fluid intake to 60 oz per day andto closely monitor urine output. Gave gambling broker PAS number to contact me directly with any questions or concerns. Will check in tomorrow am 07/11/10. May obtain repeat sodium. documented in this encounter Plan of Treatment Upcoming Encounters Date Type Department Care Team (Late st Contact Info) Description 10/01/2024 13:40 EDT Office Visit [facility] Endocrinology - [address] [address] Wilder Zaidi DO 62 [facility] [address] [place] [address] documented as of this encounter Visit Diagnoses Diagnosis 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HCC-CMS)- Primary Diabetes insipidus documented in this encounter Care Teams Manager Council Relationship Specialty Start Date End Date Akil Serrano MD [address] [facility] [address] [place] [address] PCP - General 02/21/10 04/16/11 documented as of this encounter
--- OUTSIDE RECORDS SUMMARY | 2024-08-03 13:50 | XMS_ITS | Encounter Summary ---
Author Organization [facility] Address [address] [place] [address] Care Team Providers Care Vascular Technologist Name Role Phone Akil Serrano MD Primary Care Provider [phone] Reason for Visit * Reason Onset Date Comments Results 07/17/2010 Encounter Details Date Type Department Care Team (Late st Contact Info) Description 07/17/2010 Telephone [facility] Endocrinology - [facility] [address] [place] [address] Wilder Zaidi DO 62 [facility] [address] [place] [address] Results Social History Tobacco Use [...] Encounter - Wilder Zaidi DO - 07/17/2010 7911 EST [facility] Endocrinology - [facility] [address] [place] [address] Wilder Zaidi DO 62 [facility] [address] [place] [address] documented as of this encounter Visit Diagnoses Not on filedocumented in this encounter Care Teams Vascular Technologist Relationship Specialty Start Date End Date Akil Serrano MD 74 [facility] [place] [address] PCP - General 02/21/10 04/16/11 documented as of this encounter
--- OUTSIDE RECORDS SUMMARY | 2024-08-03 13:50 | XMS_ITS | Encounter Summary ---
Author Organization [facility] Address [address] [place] [address] Care Team Providers Care Event Planning Manager Name Role Phone Akil Serrano MD Primary Care Provider [phone] Encounter Details Date Type Department Care Team (Latest Contact Info) Description 08/31/2010 10:42 EST - 08/31/2010 23:37 EST Hospital Encounter [facility] Perioperative Services- [facility] [address] [place], [place] [address] Hilton Quick MD [address] [...] 08/31/2010 1111 EST 1055-pt admitted to [facility] bed # 3 for sedated MRI-support [...] [facility] Endocrinology - [address] [address] Wilder Zaidi, 62 [facility] [address] [place] [address] documented as of this [...] 12/27/2014 added in this encounter Care Teams Event Planning Manager Relationship Specialty Start Date End Date Akil Serrano MD [address] [facility] [address] [place] [address] PCP - General 02/21/10 04/16/11 documented as of this encounter
--- OUTSIDE RECORDS SUMMARY | 2024-08-03 13:50 | XMS_ITS | Encounter Summary ---
Author Organization [facility] Address [address] [place] [address] Care Team Providers Care Flight Information Expediter Name Role Phone Akil Serrano MD Primary Care Provider [phone] Reason for Visit * Reason Onset Date Comments Medication Management 06/20/2010 Bettina hankins ld like call back regarding medication change. Encounter Details Date Type Department Care Team (Late Contact Info) Description 06/20/2010 Telephone [facility] Endocrinology - [facility] [address] [place] [address] iWlder Zaidi DO 62 [facility] [address] [place] [address] Medication Management (Bettina would like [...] Visit [facility] Endocrinology - [place] [address] [facility] [address] [place], [place] [id number] Wilder Zaidi, 62 [facility] [address] [place] [address] documented as of this encounter Visit Diagnoses Not on filedocumented in this encounter Care Teams Flight Information Expediter Relationship Specialty Start Date End Date Akil Serrano MD [address] [place] [address] PCP - General 02/21/10 04/16/11 documented as of this encounter
--- OUTSIDE RECORDS SUMMARY | 2024-08-03 13:50 | XMS_ITS | Encounter Summary ---
Author Organization [facility] Address [address] [place] [address] Care Team Providers Care Shredded Filler Cutter Operator Name Role Phone Akil Serrano MD Primary Care Provider [phone] Reason for Visit * Reason Onset Date Comments Medications Refill 07/26/2010 PATIENT OUT O F MED Encounter Details Date Type Department Care Team (Late st Contact Info) Description 07/26/[address] [address] Wilder Zaidi, 62 [facility] [address] [place] [address] Medications Refill (PATIENT OUT OF [...] EDT Office Visit [facility] Endocrinology [address] [place], [place] [phone] Wilder Zaidi, 62 [facility] [address] [place] [address] documented as of this encounter Visit Diagnoses Not on filedocumented in this encounter Discontinued Medications Medication Sig Discontinue Reason Start Date End Da te testosterone (ANDROGEL) 1 % (25 mg/2.5 g) GlPk Apply topically daily. 07/27/2010 documented as of this encounter Care Teams Shredded Filler Cutter Operator Relationship Specialty Start Date End Date Akil Serrano MD [address] [facility] [address] [place] [address] PCP - General 02/21/10 04/16/11 documented as of this encounter
--- OUTSIDE RECORDS SUMMARY | 2024-08-03 13:50 | XMS_ITS | Encounter Summary ---
Author Organization [facility] Address [address] [place] [address] Care Team Providers Care Sandwich Counter Attendant Name Role Phone Akil Serrano MD Primary Care Provider [phone] Reason for Visit * Reason Onset Date Comments Labs Only 07/17/2010 Encounter Details Date Type Department Care Team (Late st Contact Info) Description 07/17/2010 Orders Only [facility] Endocrinology - [facility] [address] [place] [address] Wilder Zaidi DO 62 [facility] [address] [place] [address] 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CMS-HCC) [...] 13:40 EDT Office Visit [facility] Endocrinology [facility] [address] [place] [address] Wilder Zaidi DO 62 [facility] [address] [place] [address] documented as of this encounter Visit Diagnoses Diagnosis 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HCC-CMS)- Primary Diabetes insipidus documented in this encounter Care Teams Sandwich Counter Attendant Relationship Specialty Start Date End Date Akil Serrano MD 74 [facility],[address] [place] [address] PCP - General 02/21/10 04/16/11 documented as of this encounter
--- OUTSIDE RECORDS SUMMARY | 2024-08-03 13:50 | XMS_ITS | Encounter Summary ---
Author Organization [facility] Address [address] [place] [address] Care Team Providers Care Edge Inker Uppers Name Role Phone Yan Demarco MD Primary Care Provider [phone] Encounter Details Date Type Department Care Team (Late st Contact Info) Description 10/04/2009 12:00 EDT - 10/04/2009 23:59 EDT Hospital Encounter [facility] [address] [place] [address] [facility] [address] [place] [phone] Discharge Disposition: Home or Self Care Social [...] Office Visit [facility] Endocrinology - [facility] [address] [place], [place] [phone] Wilder Zaidi, DO 62 [facility] [address] [place] [phone] documented as of this encounter Procedures Procedure Name Priority Date/Time Associated Diagnosis Comments T4 FREE Routine 10/04/2009 12:42 EDT SODIUM Routine 10/04/2009 12:42 EDT documented in this encounter Results * SODIUM (10/04/2009 12:42 EDT) Sodium 140 136 - 145 mEq/L [facility] Blood specimen (specimen) 10/04/2009 12:42 EDT 10/04/2009 12:43 EDT Skyler Edwards [facility] CHEMISTRY & BL OOD GAS ORDERABLES Final Result Performing Organization Address City/[facility] Co de Phone Number [facility] [address] [place] [address] * T4 FREE (10/04/2009 12:42 EDT) Free T4 1.4 0.8 - 1.8 ng/dL [facility] Blood specimen (specimen) 10/04/2009 12:42 EDT 10/04/2009 12:43 EDT Skyler Edwards [facility] CHEMISTRY & BL OOD GAS ORDERABLES Final Result Performing Organization Address [facility] Co de Phone Number [facility] [address] [place] [address] documented in this encounter Visit Diagnoses Not on filedocumented in this encounter Care Teams Edge Inker Uppers Relationship Specialty Start Date End Date Yan Demarco MD [address] [place] [address] PCP - General 08/22/09 02/20/10 documented as of this encounter
--- OUTSIDE RECORDS SUMMARY | 2024-08-03 13:50 | XMS_ITS | Encounter Summary ---
Author Organization [facility] Address [address] [place] [address] Care Team Providers Care Boilermaker'S Assistant Name Role Phone Akil Serrano MD Primary Care Provider Encounter Details Date Type Department Care Team (Late st Contact Info) Description 07/03/2010 Results Only Imaging [facility] [phone] Akil Serrano MD [address] [facility] [place], [place] [address] Social History Tobacco Use Types Packs/Day Years [...] [facility] End[facility]ology - [facility] [address] [place] [address] Wilder Zaidi, 62 [facility] [address] [place] [address] documented as of this encounter Visit Diagnoses Not on filedocumented in this encounter Care Teams Boilermaker'S Assistant Relationship Specialty Start Date End Date Akil Serrano MD [address] [place] [address] PCP - General 02/21/10 04/16/11 documented as of this encounter
--- OUTSIDE RECORDS SUMMARY | 2024-08-03 13:50 | XMS_ITS | Encounter Summary ---
Author Organization [facility] Address [address] [place] [address] Care Team Providers Care Ginger Farmer Name Role Phone Akil Serrano MD Primary Care Provider [phone] Encounter Details Date Type Department Care Team (Late st Contact Info) Description 02/21/2010 Results Only [facility] - [facility] [address] [place], [place] [address] [facility] [address] [place] [phone] Social History Tobacco Use Types Packs/Day Years [...] [facility] Endocrinology - [facility] [address] [place] [address] Wilder Zaidi DO 62 [facility] [address] [place] [address] documented as of this encounter Procedures Procedure Name Priority Date/Time Associated Diagnosis Comments T4 FREE Routine 02/21/2010 12:28 EDT TESTOSTERONE Routine 02/21/2010 12:28 EDT COMPREHENSIVE METABOLIC PANEL (CMP) Routine 02/21/2010 12:28 EDT documented in this encounter Results * COMPREHENSIVE METABOLIC PANEL (02/21/2010 12:28 EDT) Potassium 4.3 3.5 - 5.0 mEq/L [facility] Sodium 142 136 - 145 mEq/L [facility] Chloride 105 96 [...] LAB BUN 10 10 - 26 mg/dl [facility] Calcium 9.4 8.5 - 10.5 mg/dl [facility] Calculated Calcium 9.4 8.5 - 10.5 mg/dl [facility] Glucose, Serum 81 70 - 100 mg/dl [facility] Fasting? No [facility] Blood specimen (specimen) 02/21/2010 12:28 EDT 02/21/2010 12:30 EDT Skyler Edwards [facility] CHEMISTRY & BL OOD GAS ORDERABLES Final Result [facility] [address] [place] [address] * (ABNORMAL) TESTOSTERONE (02/21/2010 12:28 EDT) Testosterone, Total <10(L) 241 - 827 ng/dL [facility] Comment:Sample retested, res ult confirmed Blood specimen (specimen) 02/21/2010 12:28 EDT 02/21/2010 12:30 EDT Skyler Edwards [facility] CHEMISTRY & BL OOD GAS ORDERABLES Final Result Performing Organization Address [facility] de Phone Number [facility] [address] [place] [address] * T4 FREE (02/21/2010 12:28 EDT) Free T4 1.3 0.8 - 1.8 ng/dL [facility] Blood specimen (specimen) 02/21/2010 12:28 EDT 02/21/2010 12:30 EDT Skyler Edwards [facility] CHEMISTRY & BL OOD GAS ORDERABLES Final Result Performing Organization Address [facility] de Phone Number [address] [address] documented in this encounter Visit Diagnoses Not on filedocumented in this encounter Care Teams Ginger Farmer Relationship Specialty Start Date End Date Akil Serrano MD 74 [facility] [place] [address] PCP - General 02/21/10 04/16/11 documented as of this encounter
--- OUTSIDE RECORDS SUMMARY | 2024-08-03 13:50 | XMS_ITS | Encounter Summary ---
Author Organization [facility] Address [address] [place] [address] Care Team Providers Care Supervisor Cell Operation Name Role Phone Akil Serrano MD Primary Care Provider [phone] Reason for Visit * Reason Onset Date Comments Medications Refill 06/12/2010 Encounter Details Date Type Department Care Team (Late st Contact Info) Description 06/12/2010 Refill [facility] - [facility] [address] [place], [place] [address] [facility] [address] [place] [address] Medications Refill Social History Tobacco [...] 06/13/2010 0913 EST Spoke to Radha at [facility]. Miguel Angel has enough DDAVP until next week and sees Dr. Zaidi, adult endo, 06/14/10. Advised her that Dr. Zaidi's office will prescribe medication for the future; he just needs to know what pharmacy to use. * Telephone Encounter - [place] [facility] - 06/12/2010 1600 EST Radha is calling [place] [facility] [place] [place] [employer] (her EXT is [phone]). Pt's medication can [...] Description 10/01/2024 13:40 EDT Office Visit [facility] Endocrinology - [facility] [address] [place] [address] Wilder Zaidi, DO 62 [facility] [address] [place] [address] documented as of this encounter Visit Diagnoses Not on filedocumented in this encounter Care Teams Supervisor Cell Operation Relationship Specialty Start Date End Date Akil Serrano MD [address] [place] [address] PCP - General 02/21/10 04/16/11 documented as of this encounter
--- OUTSIDE RECORDS SUMMARY | 2024-08-03 13:50 | XMS_ITS | Encounter Summary ---
Author Organization [facility] Address [address] [place] [address] Care Team Providers Care Exhibit Display Representative Name Role Phone Akil Serrano MD Primary Care Provider [phone] Reason for Visit * Reason Onset Date Comments Diabetes 07/13/[address] [facility] level checked today at [facility], at 139. Encounter Details Date Type Department Care Team (Late st Contact Info) Description 07/13/2010 Telephone [facility] Endocrinology - [facility] [address] [place] [address] Wilder Zaidi, 62 [facility] [address] [place] [address] Diabetes (Called to let Dr. Zaidi know sweetie patient's sodium level checked today at [facility], at 139. ) Social History [...] Office Visit [facility] Endocrinology - [facility] [address] [place] [address] Wilder Zaidi, 62 [facility] [address] [place] [address] documented as of this encounter Visit Diagnoses Not on filedocumented in this encounter Care Teams Exhibit Display Representative Relationship Specialty Start Date End Date Akil Serrano MD [address] [place] [address] PCP - General 02/21/10 04/16/11 documented as of this encounter
--- OUTSIDE RECORDS SUMMARY | 2024-08-03 13:50 | XMS_ITS | Encounter Summary ---
Author Organization [facility] Address [address] [place] [address] Care Team Providers Care It Communications Manager Name Role Phone Akil Serrano MD Primary Care Provider [phone] Reason for Visit * Reason Comments Hypogonadism Encounter Details Date Type Department Care Team (Latest Contact Info) Description 06/14/2010 13:00 EST Office Visit [facility] Endocrinology - [facility] [address] [place] [id number] Wilder Zaidi, DO 62 [facility] [address] [place] [address] Panhypopituitarism (HCC-CMS) (Primary Dx) Social [...] Miguel Angel Burgos, in consultation in the [facility] adult endocrinology clinic today 06/14/2010 for further evaluation and management 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 I had the pleasure of meeting Mr. Burgos and his sister as well as his caretakers from the [facility] at the pediatric endocrine transition clinic with Dr. Edwards, on 02/21/2010. Please see that note for full details. Dr. Edwards did have a follow-up visit on 02/28/2010 with Miguel Angel's caregivers, as well as Bettina and his nurse from the [facility], Radha Conteh. Today both his caretakers [...] is applied oncea day by his male tar man using gloves. They use of pump at [...] He currently lives with his caretakers in [place], [place], and has the services as described [...] compounded DDAVP delivered from our pharmacy at [facility]. Will speak briefly with Dr. [...] being.We will consider further therapy once his tar man has been established. Plan: 1. Will address [...] - DSP Job ID: SM Doc ID: [id number] Ext Doc ID: [id number] cc: MD Akil Marsh MD Paul James Zimakas, MD documented in this encounter Plan of Treatment Upcoming Encounters Date Type Department Care Team (Late st Contact Info) Description 10/01/2024 13:40 EDT Office Visit [facility] Endocrinology - [facility] [address] [place], [place] [phone] Wilder Zaidi DO 62 [facility] [address] [place] [address] documented as of this encounter Visit Diagnoses Diagnosis Panhypopituitarism ([facility])- Primary Panhypopituitarism documented in this encounter Care Teams It Communications Manager Relationship Specialty Start Date End Date Akil Serrano MD 74 [facility] [place] [address] PCP - General 02/21/10 04/16/11 documented as of this encounter
--- OUTSIDE RECORDS SUMMARY | 2024-08-03 13:50 | XMS_ITS | Encounter Summary ---
Author Organization [facility] Address [address] [place] [address] Care Team Providers Care Information Systems Technician Name Role Phone Akil Serrano MD Primary Care Provider [phone] Reason for Visit * Reason Onset Date Comments Medication Problem 07/10/2010 REQUESTING CA LL BACK TO DISCUSS PT'S MEDICATION. REQUESTING CALL BACK FROM THE Encounter Details Date Type Department Care Team (Late st Contact Info) Description [facility] [address] [address] Wilder Zaidi DO 62 [facility] [address] [place] [address] Medication Problem (REQUESTING CALL BACK [...] Encounter - Wilder Zaidi DO - 07/10/2010 2275 EST Spoke with Bettina Michelle's sister. She [...] slight darkening of his urine. Miguel Angel's bulb weeder Marta noticed a continued decrease in urination to 3 times per day and dark beer colored urine Sunday 07/09 and Monday 07/10. Patient had sodium level drawn on 07/09/10 at [facility] ER after being told to go [...] Bettina to speak with Marta (Miguel Angel's bulb weeder) and reduce DDAVP to 0.1 mg tablet one half tab BID and to increase fluid to 60 oz per day. Miguel Angel will have a repeat sodium level in the am Friday07/11/10. I have faxed the orders to [facility]. I advised Bettina to have Miguel Angel taken to ED if hiscondition were to change. 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
--- OUTSIDE RECORDS SUMMARY | 2024-08-03 13:50 | XMS_ITS | Encounter Summary ---
Author Organization [facility] Address [address] [place] [address] Care Team Providers Care Lapel Padder Name Role Phone Akil Serrano MD Primary Care Provider [phone] Reason for Visit * Reason Onset Date Comments Medication Problem 06/19/2010 Encounter Details Date Type Department Care Team (Late st Contact Info) Description 06/19/2010 Refill [facility] Endocrinology - [facility] [address] [place], [place] [id number] Wilder Zaidi DO [address] [facility] [address] [place] [address] Medication Problem Social History Tobacco [...] Telephone Encounter - Wilder Zaidi, - 06/19/2010 8841 EST Spoke with Gerry nurse Radha this [...] you have been able to find it. 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 Takes .08 ml SQ BID 06/19/2010 documented as of this encounter Care Teams Lapel Padder Relationship Specialty Start Date End Date Akil Serrano MD [address] [facility] [place] [address] PCP - General 02/21/10 04/16/11 documented as of this encounter
--- OUTSIDE RECORDS SUMMARY | 2024-08-03 13:51 | XMS_ITS | Encounter Summary ---
Author Organization [facility] Address [address] [place] [address] Care Team Providers Care Sr Solutions Consultant Name Role Phone Corin Skinner MD Primary Care Provider [phone] Encounter Details Date Type Department Care Team (Late st Contact Info) Description 10/21/2008 Before PRISM Converted Visit (Maple) [facility] - Maple conversion [address] [place] [address] Emergency, MD Diya Social History Tobacco Use [...] [facility] [address] [place] [address] Wilder Zaidi, DO [address] [facility] [address] [place] [address] documented as of this encounter [...] PF4 ORDERABLES Final Result Performing Organization Address City/State/[facility] Co de Phone Number [facility] [address] [place] [address] documented in this encounter Visit Diagnoses Not on filedocumented in this encounter Care Teams Sr Solutions Consultant Relationship Specialty Start Date End Date Corin Skinner MD [address] [place] [phone] PCP - General 10/24/08 08/21/09 documented as of this encounter
--- OUTSIDE RECORDS SUMMARY | 2024-08-03 13:51 | XMS_ITS | Encounter Summary ---
Author Organization [facility] Address [address] [place] [address] Care Team Providers Care Game And Fish Protector Name Role Phone Corin Skinner MD Primary Care Provider [phone] Encounter Details Date Type Department Care Team (Late st Contact Info) Description 10/21/2008 Before PRISM Converted Visit (Maple) [facility] - Maple conversion [address] [place], [place] [address] Christopher Ga MD [address] [place] [phone] Social History Tobacco Use Types Packs/Day [...] [facility] - [facility] [address] [place] [address] Wilder Zaidi DO [address] [facility] [address] [place] [address] documented as of this encounter Procedures Procedure Name Priority Date/Time Associated Diagnosis Comments PHOSPHORUS Routine 10/21/2008 21:00 EDT documented in this encounter Results * PHOSPHORUS (10/21/2008 21:00 EDT) Phosphorus 3.6 2.5 - 4.5 mg/dl [facility] 10/21/2008 21:0 0 EDT 10/21/2008 21:17 EDT us Christopher Ga MD CHEMISTRY & BLOOD GAS ORDER LYNDSEY Final Result Performing Organization Address City/State/[facility] Co de Phone Number [facility] [address] [place] [address] documented in this encounter Visit Diagnoses Not on filedocumented in this encounter Care Teams Game And Fish Protector Relationship Specialty Start Date End Date Corin Skinner MD [address] [place] [phone] PCP - General 10/24/08 08/21/09 documented as of this encounter
--- OUTSIDE RECORDS SUMMARY | 2024-08-03 13:51 | XMS_ITS | Encounter Summary ---
Author Organization [facility] Address [address] [place] [address] Care Team Providers Care Methods Time Analyst Name Role Phone Yan Demarco MD Primary Care Provider [phone] Corin Skinner MD Primary Care Provider [phone] Akil Serrano MD Primary Care Provider [phone] Yossi Torres MD Primary Care Provider [phone] Emilee Cody MD Primary Care Provider + Ren Vaz MD Primary Care Provider [phone] Encounter Details Date Type Department Care Team (Late st Contact Info) Description 10/23/2008 Before PRISM Converted Visit (Maple) [facility] Pediatric Primary Care [address] [id number] Aisha Otero MD [address] [facility] [place], [address] [place] [address] Social History Tobacco Use Types [...] [facility] [place] [address] [place], [place] [phone] Shonjalyn Wilder Erik, DO [address] [place] [address] documented as of this encounter [...] on filedocumented in this encounter Care Teams Methods Time Analyst Relationship Specialty Start Date End Date Yan Demarco MD [address] [place] [address] PCP - General 08/22/09 02/20/10 Corin Skinner MD [address] [place] [phone] PCP - General 10/24/08 08/21/09 Akil Serrano MD [address] [facility] [address] [place], [place] [phone] PCP - General 02/21/10 04/16/11 Yossi Torres MD [address] [place] [phone] PCP - General 04/17/11 03/14/16 Emilee Cody MD [address] [place], [place] [phone] PCP - General 03/15/16 09/29/18 Ren Vaz MD [address] [place] [phone] PCP - General 09/30/18 documented as of this encounter
--- OUTSIDE RECORDS SUMMARY | 2024-08-03 13:51 | XMS_ITS | Encounter Summary ---
Author Organization [facility] Address [address] [place] [address] Care Team Providers Care Control Cabinet Assembler Name Role Phone Corin Skinner MD Primary Care Provider Encounter Details Date Type Department Care Team (Late st Contact Info) Description 10/21/2008 Before PRISM Converted Visit (Maple) [facility] - Maple conversion [address] [place], [place] [address] Christopher Ga MD [address] [place] [phone] Social History Tobacco Use Types Packs/Day [...] [facility] - [facility] [address] [place] [address] Wilder Zaidi DO [address] [facility] [address] [place] [address] documented as of this encounter [...] [facility] Sample Type ARTERIAL [facility] flash ranging crewmember ID [id number] Test Performed by Respiratory For non-arterial reference ranges, please see ISTAT procedure. [facility] 10/21/2008 16:4 6 EDT 10/22/2008 1:20 EDT us Christopher Ga MD CHEMISTRY & BLOOD GAS ORDER LYNDSEY Final Result [facility] [address] [place] [address] documented in this encounter Visit Diagnoses Not on filedocumented in this encounter Care Teams Control Cabinet Assembler Relationship Specialty Start Date End Date Corin Skinner MD [address] [place] [phone] PCP - General 10/24/08 08/21/09 documented as of this encounter
--- OUTSIDE RECORDS SUMMARY | 2024-08-03 13:51 | XMS_ITS | Encounter Summary ---
Author Organization [facility] Address [address] [place] [address] Care Team Providers Care Anesthesiology Technologist Name Role Phone Corin Skinner MD Primary Care Provider [phone] Encounter Details Date Type Department Care Team (Late st Contact Info) Description 10/21/2008 Before PRISM Converted Visit (Maple) [facility] - Maple conversion [address] [place] [address] Emergency, MD Diya Social History Tobacco Use [...] Office Visit [facility] Endocrinology - [facility] [address] [place] [address] Wilder Zaidi, DO [address] [facility] [address] [place] [address] documented [...] de Phone Number [facility] [address] [place] [address] documented in this encounter Visit Diagnoses Not on filedocumented in this encounter Care Teams Anesthesiology Technologist Relationship Specialty Start Date End Date Corin Skinner MD [address] [place] [phone] PCP - General 10/24/08 08/21/09 documented as of this encounter
--- OUTSIDE RECORDS SUMMARY | 2024-08-03 13:51 | XMS_ITS | Encounter Summary ---
Author Organization [facility] Address [address] [place] [address] Care Team Providers Care Support Staff Name Role Phone Corin Skinner MD Primary Care Provider Encounter Details Date Type Department Care Team (Late st Contact Info) Description 10/21/2008 Before PRISM Converted Visit (Maple) [facility] - Maple conversion [address] [place], [place] [address] Christopher Ga MD [address] [place] [phone] Social History Tobacco Use Types Packs/Day [...] Visit [facility] Endocrinology - [facility] [address] [place] [address] Wilder Zaidi DO [address] [facility] [address] [place] [address] documented as of this encounter Procedures Procedure Name Priority Date/Time Associated Diagnosis Comments SMEAR REVIEW Routine 10/21/2008 22:35 EDT documented in this encounter Results * SMEAR REVIEW (10/21/2008 22:35 EDT) Platelet Morphology 1+ Large platelets [facility] 10/21/2008 22:3 5 EDT 10/21/2008 22:35 EDT us Christopher Ga MD HEMATOLOGY & PF4 ORDERABLES Final Result [facility] [address] [place] [address] documented in this encounter Visit Diagnoses Not on filedocumented in this encounter Care Teams Support Staff Relationship Specialty Start Date End Date Corin Skinner MD [address] [place] [phone] PCP - General 10/24/08 08/21/09 documented as of this encounter
--- OUTSIDE RECORDS SUMMARY | 2024-08-03 13:51 | XMS_ITS | Encounter Summary ---
Author Organization [facility] Address [address] [place] [address] Care Team Providers Care Sap Plant Maintenance Consultant Name Role Phone Corin Skinner MD Primary Care Provider [phone] Encounter Details Date Type Department Care Team (Late st Contact Info) Description 10/21/2008 Before PRISM Converted Visit (Maple) [facility] - Maple conversion [address] [place] [address] Emergency, MD Diya Social History Tobacco Use [...] [facility] - [facility] [address] [place] [address] Wilder Zaidi, DO [address] [facility] [address] [place] [address] documented as of this encounter [...] PF4 ORDERABLES Final Result Performing Organization Address City/State/[facility] Co de Phone Number [facility] [address] [place] [address] documented in this encounter Visit Diagnoses Not on filedocumented in this encounter Care Teams Sap Plant Maintenance Consultant Relationship Specialty Start Date End Date Corin Skinner MD [address] [place] [phone] PCP - General 10/24/08 08/21/09 documented as of this encounter
--- OUTSIDE RECORDS SUMMARY | 2024-08-03 13:51 | XMS_ITS | Encounter Summary ---
Author Organization [facility] Address [address] [place] [address] Care Team Providers Care Hole Digger Operator Name Role Phone Corin Skinner MD Primary Care Provider Encounter Details Date Type Department Care Team (Late st Contact Info) Description 08/13/2008 Office Visit [facility] - Maple conversion [address] [place] [address] Slava Pineda MD Social History Tobacco Use [...] Addenda for MIGUEL ANGEL BURGOS JR VisitID: [id number] Date: 08/13/2008 08/13/2008 10:30 Dr. Amaro refers [...] grand mal seizure. ). No fever. Treatment VIDEO OPERATOR: None. PAST HX: (traumatic brain injury, seizures). [...] 5 mL normal saline; (right FA by SKIP PIT WORKER, rainbow to lab (first attempt unsuccessful by SKIP PIT WORKER in right AC)). --1259 Nyasia Morelos R.N., HARLEY IV bag #1 of 500 mL NS; rate = wide open. --1441 Rachel Reynolds R.N., [place] IV fluids discontinued. IV bag #1. INTAKE: 500 mL. --1545 Lucille Carlson R.N.. DISPOSITION / DISCHARGE Report was given (Latrice ROMERO). Transported via stretcher by [facility] with IV. Admitted to pediatrics. --1546 [...] System [facility] Endocrinology - [facility] [address] [place], [place] [phone] Wilder Zaidi, [address] [facility] [address] [place] [address] documented as of this encounter Visit Diagnoses Not on filedocumented in this encounter Care Teams Hole Digger Operator Relationship Specialty Start Date End Date Corin Skinner MD [address] [place] [phone] PCP - General 10/24/08 08/21/09 documented as of this encounter
--- OUTSIDE RECORDS SUMMARY | 2024-08-03 13:51 | XMS_ITS | Encounter Summary ---
Author Organization [facility] Address [address] [place] [address] Care Team Providers Care Special Agent Group Insurance Name Role Phone Corin Skinner MD Primary Care Provider [phone]- [phone] Encounter Details Date Type Department Care Team (Late st Contact Info) Description 10/21/2008 Before PRISM Converted Visit (Maple) [facility] - Maple conversion [address] [place] [address] Emergency, MD Diya Social History Tobacco Use [...] Office Visit [facility] Endocrinology - [facility] [address] [place] [address] Wilder Zaidi, DO [address] [facility] [address] [place] [address] documented as of this encounter [...] ORDER LYNDSEY Final Result Performing Organization Address City/State/[facility] Co de Phone Number [facility] [address] [place] [address] documented in this encounter Visit Diagnoses Not on filedocumented in this encounter Care Teams Special Agent Group Insurance Relationship Specialty Start Date End Date Corin Skinner MD [address] [place] [phone] PCP - General 10/24/08 08/21/09 documented as of this encounter
--- OUTSIDE RECORDS SUMMARY | 2024-08-03 13:51 | XMS_ITS | Encounter Summary ---
Author Organization [facility] Address [address] [place] [address] Care Team Providers Care Wild Animal Caretaker Name Role Phone Corin Skinner MD Primary Care Provider [phone] Encounter Details Date Type Department Care Team (Late st Contact Info) Description 10/21/2008 Before PRISM Converted Visit (Maple) [facility] - Maple conversion [address] [place] [address] Emergency, MD Diya Social History Tobacco Use [...] EDT Office Visit [facility] Endocrinology - [facility] [address] [place] [address] Wilder Zaidi, DO [address] [facility] [address] [place] [address] documented as of this [...] LYNDSEY Final Result [facility] [address] [place] [address] documented in this encounter Visit Diagnoses Not on filedocumented in this encounter Care Teams Wild Animal Caretaker Relationship Specialty Start Date End Date Corin Skinner MD [address] [place] [phone] PCP - General 10/24/08 08/21/09 documented as of this encounter
--- OUTSIDE RECORDS SUMMARY | 2024-08-03 13:51 | XMS_ITS | Encounter Summary ---
Author Organization [facility] Address [address] [place] [address] Care Team Providers Care International Student Counselor Name Role Phone Corin Skinner MD Primary Care Provider Encounter Details Date Type Department Care Team (Late st Contact Info) Description 10/21/2008 17:35 EDT - 11/04/2008 11:59 EDT Hospital Encounter [facility] [address] [place] [address] Christopher Ga MD [address] [place] [address] Jacqueline Early MD [address] [address] Slava Pineda MD Discharge Disposition: [...] OF PRESENT ILLNESS Miguel Angel is an 17-famn-mpajmyi with a complex past medical history, including [...] parentsin the afternoon. He was taken to [facility], where he was noted to be minimally arousable and his serum sodium was 120. A temperature at that time was 30.8 degrees Celsius and a serum glucose was 64. He was given 1 amp of D50 and stress dose hydrocortisone and then [facility] for further management. He was admitted to [...] low serum sodium was 120 recorded at [facility] and his high serum sodium was 161. At the time of transfer to the regularinpatient unit, his serum electrolytes had stabilized. His most recent full set of electrolytes were [id number], potassium 3.3, chloride 109 and CO2 30. [...] of Unasyn. A blood culture done at [facility] prior to admission was negative. Neurologic: After [...] He received stress dose steroids, beginning at [facility]. This stress dose was weaned to hydrocortisone [...] his TSH deficiency. Psychosocial: Upon admission to [facility], Bettina parents were unavailable for consultation either [...] Bejarano MD P - SS Job ID: [id number] Document ID: [id number] cc: MD Cy Walker MD Matthew Giefer, [...] an 18-year-old male who was admitted to [facility] October 21, 2008. Miguel Angel has a [...] months since theyreturned from a hospitalization in [place] which was in February of 2008. She states that his fluid totals and his medications have been adjusted and that in her opinion some of these adjustments have resulted in Robininstability. She states that she is well aware of his medication regimen and that Miguel Angel gets all of his medications as prescribed. Isabel ([facility] states that for several days prior to [...] Miguel Angel Burgos , took him to [facility] where he was then transferred to [facility]. MOC states that they took him to the emergency room in [facility] but then did not go with Miguel Angel to [place]. She stated that somebody spoke with folks in the PICU in [place] but neither she nor her have been down to see Miguel Angel since he was admitted on October 21, 2008. She states that thefamily vehicle is under repair and they have no transportation to the hospital. [facility] states that currently Miguel Angel is getting services in the home. She states that he gets 55 hours per week of personal care assistance. He has a personal coach from 3 p.m. until 3 a.m. Friday through and then on Fridays his personal coach is there from 3 p.m. until 10 p.m. MO states that he attends school Friday through Friday and gets home at 3 p.m. MO states that they also get respite which is an in-manager home improvement usually on the weekends. She states that currentlythey have used their budget up for the year. There also had been some VNA services. It is not clearwhether she is still getting VNA services. [facility] states that she and Bettina father are [...] not feel that they miss medication doses. [facility] states that Miguel Angel is able to [...] hurting himself and does this on purpose. [facility] states that she and Bettina father have no desire to place Miguel Angel in a residential facility at this time. They feel that they are doing an adequate job with him at home. They feel that the servicesthat he is getting are helpful. RAHEL states that she does not like [facility]. She states that in the past, they have mismanaged Miguel Angel and because of that she does not like coming here and associating with the doctors here. She states that, if they could, they would prefer to have him in [place] but that they have not been able [...] states that she gets some help through [facility]. She also states that she gets some help through the [facility] organization but she was not sure which one. REVIEW OF SYSTEMS Behavioral review of systems: [facility] states that Miguel Angel tends to stay [...] of twisting his nipples to induce pain. [facility] also states that there are occasions when he will eat his own feces. Medical review of systems: Prior to this admission, [facility] states that he was doing some screeching and just behaviorally seemed to be a little out of sorts. There was decreased activity for several days prior to admission which she attributed to his testosterone shot. There was no history of fever orof any other respiratory symptoms. All other review of systems was negative. PAST MEDICAL HISTORY [facility] states that Miguel Angel was relatively well [...] to the Adult Protective Services and the arson and bomb investigator on the case is Sukhi Young. 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 She denies any prior history with [facility]. There is no history of psychiatric problems. Isabel reports that the father of Miguel Angel is Miguel Angel Burgos Sr. She states that he works on the [employer] which is within walking distance of their house. His date of is [birth year] 1966. She states that he didhave some prior involvement with [facility] regarding custody issues of an older daughter of his. Isabel reports that the biological mother of Miguel Angel was Jeannette Burgos. She when Miguel Angel was in [facility] about three years ago. She [...] Review of the photographs taken by the [facility] nurse on admission show the following: [...] parents have not been in to see Miguela Ngel since he as admitted to [facility] and have made minimal attempts to contact health care personnel at [facility]. This is the third admission for Miguel Angel since he was discharged from [facility] 2007. RECOMMENDATIONS 1. Physical exam was completed today. 2. I have spoken with the Adult Protective Services arson and bomb investigator, Sukhi Young, regarding the injuries noted [...] can be put in place to assure Whitney safety. 5. The nature of his bruises [...] Romo MD P - SADE Job ID: [id number] Document ID: [id number] cc: MD Corin Curry MD Daniel W Larrow, MD Karyn Patno, MD * Adult Protective Services, Sukhi Young documented in this encounter Plan of Treatment Upcoming Encounters Date Type Department Care Team (Late st Contact Info) Description 10/01/2024 13:[address] [facility] - [place] [address] [place] [address] Wilder Zaidi, DO [address] [place] [address] Pending Results Name Type Priority [...] ORDER LYNDSEY Final Result Performing Organization Address [facility] Co de Phone Number [facility] [address] [place] [address] * SODIUM (11/04/2008 7:00 EDT) Sodium Duplicate Test Request 136 - 145 mEq/L [facility] Blood specimen (specimen) 11/04/2008 7:00 EDT 11/04/2008 7:21 EDT us Christopher Ga MD CHEMISTRY & BLOOD GAS ORDER LYNDSEY Final Result Performing Organization Address [facility] de Phone Number [facility] [address] [place] [address] * (ABNORMAL) GLUCOSE, SERUM (11/04/2008 6:50 EDT) Glucose, Serum 67(L) 70 - 100 mg/dl [facility] Comment:Heparinized plasma. Blood specimen (specimen) 11/04/2008 6:50 EDT 11/04/2008 7:20 EDT us Christopher Ga MD CHEMISTRY & BLOOD GAS ORDER LYNDSEY Final Result Performing Organization Address [facility] de Phone Number [facility] [address] [place] [address] * ELECTROLYTES (11/04/2008 6:50 EDT) Sodium 140 [...] ORDER LYNDSEY Final Result Performing Organization Address [facility] de Phone Number [facility] [address] [place] [address] * CREATININE (11/04/2008 6:50 EDT) Creatinine 0.70 0.7 - 1.5 mg/dl [facility] Comment:Heparinized plasma. GFR, Calculated >60 ml/min/1.7 3m2 [facility] Comment:Heparinized plasma. Blood specimen (specimen) 11/04/2008 6:50 EDT 11/04/2008 7:20 EDT us Christopher Ga MD CHEMISTRY & BLOOD GAS ORDER LYNDSEY Final Result Performing Organization Address [facility] de Phone Number [facility] [address] [place] [address] * BUN (11/04/2008 6:50 EDT) Pathologist [facility] BUN 15 10 - 26 mg/dl [facility] Comment:Heparinized plasma. Blood specimen (specimen) 11/04/2008 6:50 EDT 11/04/2008 7:20 EDT us Christopher Ga MD CHEMISTRY & BLOOD GAS ORDER LYNDSEY Final Result Performing Organization Address [facility] de Phone Number [facility] [address] [place] [address] * ELECTROLYTES (11/03/2008 19:00 EDT) Sodium 140 [...] ORDER LYNDSEY Final Result Performing Organization Address [facility] Co de Phone Number [facility] [address] [place] [address] * CREATININE (11/03/2008 19:00 EDT) Pathologist [facility] Creatinine 0.70 0.7 - 1.5 mg/dl [facility] GFR, Calculated >60 ml/min/1.7 3m2 [facility] Blood specimen (specimen) 11/03/2008 19:00 EDT 11/03/2008 19:24 EDT us Christopher Ga MD CHEMISTRY & BLOOD GAS ORDER LYNDSEY Final Result Performing Organization Address [facility] de Phone Number [facility] [address] [place] [address] * BUN (11/03/2008 19:00 EDT) Pathologist [facility] BUN 15 10 - 26 mg/dl [facility] Blood specimen (specimen) 11/03/2008 19:00 EDT 11/03/2008 19:24 EDT us Christopher Ga MD CHEMISTRY & BLOOD GAS ORDER LYNDSEY Final Result Performing Organization Address [facility] Phone Number [facility] [address] [place] [address] * OSMOLALITY (11/03/2008 14:00 EDT) Pathologist [facility] Osmolality Cintia 300 280 - 300 MOS/KG [facility] Blood specimen (specimen) 11/03/2008 14:00 EDT 11/03/2008 14:36 EDT us Christopher Ga MD CHEMISTRY & BLOOD GAS ORDER LYNDSEY Final Result Performing Organization Address [facility] de Phone Number [facility] [address] [place] [address] * SODIUM (11/03/2008 14:00 EDT) Pathologist [facility] Sodium 143 136 - 145 mEq/L [facility] Blood specimen (specimen) 11/03/2008 14:00 EDT 11/03/2008 14:36 EDT us Christopher Ga MD CHEMISTRY & BLOOD GAS ORDER LYNDSEY Final Result Performing Organization Address [facility] Co de Phone Number [facility] [address] [place] [address] * SODIUM, URINE RANDOM (11/03/2008 13:30 EDT) Sodium, Ur Sample quantity insufficient for testing. mEq/L [facility] Urine specimen (specimen) 11/03/2008 13:30 EDT 11/03/2008 15:04 EDT us Christopher Ga MD URINALYSIS ORDERABLES Final Result Performing Organization Address [facility] Phone Number [facility] [address] [place] [address] * OSMOLALITY,URINE (11/03/2008 13:30 EDT) Osmolality, Ur Sample quantity insufficient for testing. 392 - 1090 MOS/KG [facility] Urine specimen (specimen) 11/03/2008 13:30 EDT 11/03/2008 15:04 EDT us Christopher Ga MD URINALYSIS ORDERABLES Final Result Performing Organization Address [facility] Phone Number [facility] [address] [place] [address] * (ABNORMAL) GLUCOSE, SERUM (11/03/2008 6:20 EDT) Glucose, Serum 69(L) 70 - 100 mg/dl [facility] Blood specimen (specimen) 11/03/2008 6:20 EDT 11/03/2008 6:27 EDT us Christopher Ga MD CHEMISTRY & BLOOD GAS ORDER LYNDSEY Final Result Performing Organization Address [facility] de Phone Number [facility] [address] [place] [address] * ELECTROLYTES (11/03/2008 6:20 EDT) Sodium 144 [...] ORDER LYNDSEY Final Result Performing Organization Address [facility] de Phone Number [facility] [address] [place] [address] * CREATININE (11/03/2008 6:20 EDT) Creatinine 0.70 0.7 - 1.5 mg/dl [facility] GFR, Calculated >60 ml/min/1.7 3m2 [facility] Blood specimen (specimen) 11/03/2008 6:20 EDT 11/03/2008 6:27 EDT us Christopher Ga MD CHEMISTRY & BLOOD GAS ORDER LYNDSEY Final Result Performing Organization Address [facility] de Phone Number [facility] [address] [place] [address] * BUN (11/03/2008 6:20 EDT) BUN 15 10 - 26 mg/dl [facility] Blood specimen (specimen) 11/03/2008 6:20 EDT 11/03/2008 6:27 EDT us Christopher Ga MD CHEMISTRY & BLOOD GAS ORDER LYNDSEY Final Result Performing Organization Address [facility] Co de Phone Number [facility] [address] [place] [address] * SODIUM (11/03/2008 0:15 EDT) Sodium 143 136 - 145 mEq/L [facility] Blood specimen (specimen) 11/03/2008 0:15 EDT 11/03/2008 0:30 EDT us Christopher Ga MD CHEMISTRY & BLOOD GAS ORDER LYNDSEY Final Result Performing Organization Address [facility] de Phone Number [facility] [address] [place] [address] * ELECTROLYTES (11/02/2008 18:05 EDT) Sodium 141 [...] ORDER LYNDSEY Final Result Performing Organization Address [facility] de Phone Number [facility] [address] [place] [address] * CREATININE (11/02/2008 18:05 EDT) Creatinine 0.70 0.7 - 1.5 mg/dl [facility] GFR, Calculated >60 ml/min/1.7 3m2 [facility] Blood specimen (specimen) 11/02/2008 18:05 EDT 11/02/2008 18:22 EDT us Christopher Ga MD CHEMISTRY & BLOOD GAS ORDER LYNDSEY Final Result Performing Organization Address [facility] de Phone Number [facility] [address] [place] [address] * BUN (11/02/2008 18:05 EDT) BUN 17 10 - 26 mg/dl [facility] Blood specimen (specimen) 11/02/2008 18:05 EDT 11/02/2008 18:22 EDT us Christopher Ga MD CHEMISTRY & BLOOD GAS ORDER LYNDSEY Final Result Performing Organization Address [facility] de Phone Number [facility] [address] [place] [address] * (ABNORMAL) GLUCOSE, SERUM (11/02/2008 5:50 EDT) Glucose, Serum 68(L) 70 - 100 mg/dl [facility] Blood specimen (specimen) 11/02/2008 5:50 EDT 11/02/2008 6:04 EDT us Christopher aG MD CHEMISTRY & BLOOD GAS ORDER LYNDSEY Final Result Performing Organization Address [facility] de Phone Number [facility] [address] [place] [address] * ELECTROLYTES (11/02/2008 5:50 EDT) Sodium 142 [...] ORDER LYNDSEY Final Result Performing Organization Address [facility] de Phone Number [facility] [address] [place] [address] * CREATININE (11/02/2008 5:50 EDT) Creatinine 0.70 0.7 - 1.5 mg/dl [facility] GFR, Calculated >60 ml/min/1.7 3m2 [facility] Blood specimen (specimen) 11/02/2008 5:50 EDT 11/02/2008 6:04 EDT us Christopher Ga MD CHEMISTRY & BLOOD GAS ORDER LYNDSEY Final Result Performing Organization Address City/[facility] de Phone Number [facility] [address] [place] [address] * BUN (11/02/2008 5:50 EDT) BUN 15 10 - 26 mg/dl [facility] Blood specimen (specimen) 11/02/2008 5:50 EDT 11/02/2008 6:04 EDT us Christopher Ga MD CHEMISTRY & BLOOD GAS ORDER LYNDSEY Final Result Performing Organization Address [facility] de Phone Number [facility] [address] [place] [address] * SODIUM (11/01/2008 22:00 EDT) Pathologist [facility] Sodium 137 136 - 145 mEq/L [facility] Blood specimen (specimen) 11/01/2008 22:00 EDT 11/01/2008 22:24 EDT us Christopher Ga MD CHEMISTRY & BLOOD GAS ORDER LYNDSEY Final Result Performing Organization Address [facility] de Phone Number [facility] [address] [place] [address] * SODIUM, URINE RANDOM (11/01/2008 13:30 EDT) Sodium, Ur 15.0 mEq/L [facility] Urine specimen (specimen) 11/01/2008 13:30 EDT 11/01/2008 13:51 EDT us Christopher Ga MD URINALYSIS ORDERABLES Final Result Performing Organization Address [facility] de Phone Number [facility] [address] [place] [address] * (ABNORMAL) OSMOLALITY,URINE (11/01/2008 13:30 EDT) Osmolality, Ur 163(L) 392 - 1090 MOS/KG [facility] Urine specimen (specimen) 11/01/2008 13:30 EDT 11/01/2008 13:51 EDT us Christopher Ga MD URINALYSIS ORDERABLES Final Result Performing Organization Address [facility] Phone Number [facility] [address] [place] [address] * OSMOLALITY (11/01/2008 13:20 EDT) Pathologist [facility] Osmolality Cintia 294 280 - 300 MOS/KG [facility] Blood specimen (specimen) 11/01/2008 13:20 EDT 11/01/2008 13:52 EDT us Christopher Ga MD CHEMISTRY & BLOOD GAS ORDER LYNDSEY Final Result Performing Organization Address [facility] Phone Number [facility] [address] [place] [address] * SODIUM (11/01/2008 13:20 EDT) Pathologist [facility] Sodium 138 136 - 145 mEq/L [facility] Blood specimen (specimen) 11/01/2008 13:20 EDT 11/01/2008 13:52 EDT Christopher Ga MD CHEMISTRY & BLOOD GAS ORDER LYNDSEY Final Result Performing Organization Address [facility] Phone [facility] [address] [place] [address] * GLUCOSE, SERUM (11/01/2008 7:00 EDT) Pathologist [facility] Glucose, Serum 77 70 - 100 mg/dl [facility] Blood specimen (specimen) 11/01/2008 7:00 EDT 11/01/2008 7:18 EDT Christopher Ga MD CHEMISTRY & BLOOD GAS ORDER LYNDSEY Final Result Performing Organization Address [facility] de Phone Number [facility] [address] [place] [address] * (ABNORMAL) ELECTROLYTES (11/01/2008 7:00 EDT) Sodium [...] ORDER LYNDSEY Final Result Performing Organization Address [facility] de Phone Number [facility] [address] [place] [address] * CREATININE (11/01/2008 7:00 EDT) Creatinine 0.80 0.7 - 1.5 mg/dl [facility] GFR, Calculated >60 ml/min/1.7 3m2 [facility] Blood specimen (specimen) 11/01/2008 7:00 EDT 11/01/2008 7:18 EDT us Christopher Ga MD CHEMISTRY & BLOOD GAS ORDER LYNDSEY Final Result Performing Organization Address [facility] de Phone Number [facility] [address] [place] [address] * BUN (11/01/2008 7:00 EDT) BUN 18 10 - 26 mg/dl [facility] Blood specimen (specimen) 11/01/2008 7:00 EDT 11/01/2008 7:18 EDT us Christopher Ga MD CHEMISTRY & BLOOD GAS ORDER LYNDSEY Final Result Performing Organization Address [facility] de Phone Number [facility] [address] [place] [address] * HOLD SST (10/31/2008 20:00 EDT) Hold SST Hold for further testing. Specimen will be held for 5 days. [facility] 10/31/2008 20:0 0 EDT 10/31/2008 20:13 EDT us Christopher Ga MD LAB INFO SERVICE AND SUPPOR T & PHONE RESULT Final Result Performing Organization Address [facility] Phone Number [facility] [address] [place] [address] * CORTISOL (10/31/2008 20:00 EDT) Cortisol 17 ug/dl [facility] Comment: 7-9a.m.=4.3-22.4 3-5p.m.=3.1-16.7 Blood specimen (specimen) 10/31/2008 20:00 EDT 10/31/2008 20:13 EDT us Christopher Ga MD CHEMISTRY & BLOOD GAS ORDER LYNDSEY Final Result Performing Organization Address [facility] Phone Number [facility] [address] [place] [address] * (ABNORMAL) GLUCOSE, SERUM (10/31/2008 7:00 EDT) Glucose, Serum 68(L) 70 - 100 mg/dl [facility] Blood specimen (specimen) 10/31/2008 7:00 EDT 10/31/2008 7:33 EDT us Christopher Ga MD CHEMISTRY & BLOOD GAS ORDER LYNDSEY Final Result Performing Organization Address [facility] de Phone Number [facility] [address] [place] [address] * ELECTROLYTES (10/31/2008 7:00 EDT) Sodium 142 [...] ORDER LYNDSEY Final Result Performing Organization Address City/[facility]/ZIP Co de Phone Number [facility] [address] [place] [address] * CREATININE (10/31/2008 7:00 EDT) Creatinine 0.70 0.7 - 1.5 mg/dl [facility] GFR, Calculated >60 ml/min/1.7 3m2 [facility] Blood specimen (specimen) 10/31/2008 7:00 EDT 10/31/2008 7:33 EDT us Christopher Ga MD CHEMISTRY & BLOOD GAS ORDER LYNDSEY Final Result Performing Organization Address [facility] Co de Phone Number [facility] [address] [place] [address] * BUN (10/31/2008 7:00 EDT) BUN 16 10 - 26 mg/dl [facility] Blood specimen (specimen) 10/31/2008 7:00 EDT 10/31/2008 7:33 EDT us Christopher Ga MD CHEMISTRY & BLOOD GAS ORDER LYNDSEY Final Result Performing Organization Address [facility] de Phone Number [facility] [address] [place] [address] * GLUCOSE, SERUM (10/30/2008 18:45 EDT) Glucose, Serum 88 70 - 100 mg/dl [facility] 10/30/2008 18:4 5 EDT 10/30/2008 18:56 EDT us Christopher Ga MD CHEMISTRY & BLOOD GAS ORDER LYNDSEY Final Result Performing Organization Address [facility] Co de Phone Number [facility] [address] [place] [address] * SODIUM (10/30/2008 18:45 EDT) Pathologist [facility] Sodium 141 136 - 145 mEq/L [facility] 10/30/2008 18:4 5 EDT 10/30/2008 18:56 EDT Christopher Ga MD CHEMISTRY & BLOOD GAS ORDER LYNDSEY Final Result Performing Organization Address [facility] de Phone Number [facility] [address] [place] [address] * CORTISOL (10/30/2008 18:45 EDT) Pathologist [facility] Cortisol 32 ug/dl [facility] Comment: 7-9a.m.=4.3-22.4 3-5p.m.=3.1-16.7 Blood specimen (specimen) 10/30/2008 18:45 EDT 10/30/2008 18:56 EDT Christopher Ga MD CHEMISTRY & BLOOD GAS ORDER LYNDSEY Final Result Performing Organization Address [facility] de Phone Number [facility] [address] [place] [address] * SODIUM, URINE RANDOM (10/30/2008 7:15 EDT) Pathologist [facility] Sodium, Ur 65.0 mEq/L [facility] Urine specimen (specimen) 10/30/2008 7:15 EDT 10/30/2008 7:32 EDT Christopher Ga MD URINALYSIS ORDERABLES Final Result Performing Organization Address [facility] de Phone Number [facility] [address] [place] [address] * (ABNORMAL) OSMOLALITY,URINE (10/30/2008 7:15 EDT) Pathologist [facility] Osmolality, Ur 199(L) 392 - 1090 MOS/KG [facility] Urine specimen (specimen) 10/30/2008 7:15 EDT 10/30/2008 7:32 EDT Christopher Ga MD URINALYSIS ORDERABLES Final Result Performing Organization Address [facility] de Phone Number [facility] [address] [place] [address] * (ABNORMAL) GLUCOSE, SERUM (10/30/2008 7:15 EDT) Glucose, Serum 69(L) 70 - 100 mg/dl [facility] Comment:Heparinized plasma. Blood specimen (specimen) 10/30/2008 7:15 EDT 10/30/2008 7:32 EDT us Christopher Ga MD CHEMISTRY & BLOOD GAS ORDER LYNSDEY Final Result Performing Organization Address [facility] Phone Number [facility] [address] [place] [address] * ELECTROLYTES (10/30/2008 7:15 EDT) Sodium 142 [...] ORDER LYNDSEY Final Result Performing Organization Address [facility] Phone Number [facility] [address] [place] [address] * CREATININE (10/30/2008 7:15 EDT) Creatinine 0.70 0.7 - 1.5 mg/dl [facility] Comment:Heparinized plasma. GFR, Calculated >60 ml/min/1.7 3m2 [facility] Comment:Heparinized plasma. Blood specimen (specimen) 10/30/2008 7:15 EDT 10/30/2008 7:32 EDT us Christopher Ga MD CHEMISTRY & BLOOD GAS ORDER LYNDSEY Final Result Performing Organization Address [facility] Phone Number [facility] [address] [place] [address] * BUN (10/30/2008 7:15 EDT) BUN 13 10 - 26 mg/dl [facility] Comment:Heparinized plasma. Blood specimen (specimen) 10/30/2008 7:15 EDT 10/30/2008 7:32 EDT us Christopher Ga MD CHEMISTRY & BLOOD GAS ORDER LYNDSEY Final Result Performing Organization Address [facility] Phone Number [facility] [address] [place] [address] * (ABNORMAL) OSMOLALITY,URINE (10/29/2008 19:50 EDT) Pathologist [facility] Osmolality, Ur 106(L) 392 - 1090 MOS/KG [facility] Urine specimen (specimen) 10/29/2008 19:50 EDT 10/29/2008 20:08 EDT us Christopher Ga MD URINALYSIS ORDERABLES Final Result Performing Organization Address [facility] Phone Number [facility] [address] [place] [address] * GLUCOSE, SERUM (10/29/2008 18:15 EDT) Pathologist [facility] Glucose, Serum 87 70 - 100 mg/dl [facility] Blood specimen (specimen) 10/29/2008 18:15 EDT 10/29/2008 18:44 EDT us Christopher Ga MD CHEMISTRY & BLOOD GAS ORDER LYNDSEY Final Result Performing Organization Address [facility] de Phone Number [facility] [address] [place] [address] * SODIUM (10/29/2008 18:15 EDT) Pathologist [facility] Sodium 136 136 - 145 mEq/L [facility] Blood specimen (specimen) 10/29/2008 18:15 EDT 10/29/2008 18:44 EDT us Christopher Ga MD CHEMISTRY & BLOOD GAS ORDER LYNDSEY Final Result Performing Organization Address [facility] Phone Number [facility] [address] [place] [address] * SODIUM, URINE RANDOM (10/29/2008 18:15 EDT) Sodium, Ur 87.0 mEq/L [facility] Urine specimen (specimen) 10/29/2008 18:15 EDT 10/29/2008 18:45 EDT us Christopher Ga MD URINALYSIS ORDERABLES Final Result Performing Organization Address [facility] Phone Number [facility] [address] [place] [address] * (ABNORMAL) OSMOLALITY,URINE (10/29/2008 18:15 EDT) Pathologist [facility] Osmolality, Ur 336(L) 392 - 1090 MOS/KG [facility] Urine specimen (specimen) 10/29/2008 18:15 EDT 10/29/2008 18:45 EDT us Christopher Ga MD URINALYSIS ORDERABLES Final Result Performing Organization Address [facility] Phone Number [facility] [address] [place] [address] * (ABNORMAL) GLUCOSE, SERUM (10/29/2008 6:40 EDT) Pathologist [facility] Glucose, Serum 63(L) 70 - 100 mg/dl [facility] Blood specimen (specimen) 10/29/2008 6:40 EDT 10/29/2008 6:55 EDT Christopher Ga MD CHEMISTRY & BLOOD GAS ORDER LYNDSEY Final Result Performing Organization Address [facility] Co de Phone Number [facility] [address] [place] [address] * ELECTROLYTES (10/29/2008 6:40 EDT) Sodium 138 [...] LYNDSEY Final Result Performing Organization Address [facility] de Phone Number [facility] [address] [place] [address] * CREATININE (10/29/2008 6:40 EDT) Pathologist [facility] Creatinine 0.70 0.7 - 1.5 mg/dl [facility] GFR, Calculated >60 ml/min/1.7 3m2 [facility] Blood specimen (specimen) 10/29/2008 6:40 EDT 10/29/2008 6:55 EDT us Christopher Ga MD CHEMISTRY & BLOOD GAS ORDER LYNDSEY Final Result Performing Organization Address [facility] de Phone Number [facility] [address] [place] [address] * BUN (10/29/2008 6:40 EDT) BUN 13 10 - 26 mg/dl [facility] Blood specimen (specimen) 10/29/2008 6:40 EDT 10/29/2008 6:55 EDT us Christopher Ga MD CHEMISTRY & BLOOD GAS ORDER LYNDSEY Final Result Performing Organization Address [facility] Co de Phone Number [facility] [address] [place] [address] * (ABNORMAL) OSMOLALITY,URINE (10/29/2008 6:35 EDT) Osmolality, Ur 171(L) 392 - 1090 MOS/KG [facility] 10/29/2008 6:35 EDT 10/29/2008 6:57 EDT us Christopher Ga MD URINALYSIS ORDERABLES Final Result Performing Organization Address [facility] Phone Number [facility] [address] [place] [address] * SODIUM, URINE RANDOM (10/29/2008 6:35 EDT) Sodium, Ur 71.0 mEq/L [facility] 10/29/2008 6:35 EDT 10/29/2008 6:57 EDT us Christopher Ga MD URINALYSIS ORDERABLES Final Result Performing Organization Address [facility] Phone Number [facility] [address] [place] [address] * SODIUM, URINE RANDOM (10/29/2008 1:35 EDT) Sodium, Ur 262.0 mEq/L [facility] Urine specimen (specimen) 10/29/2008 1:35 EDT 10/29/2008 1:54 EDT us Christopher Ga MD URINALYSIS ORDERABLES Final Result Performing Organization Address [facility] Phone Number [facility] [address] [place] [address] * OSMOLALITY,URINE (10/29/2008 1:35 EDT) Osmolality, Ur 581 392 - 1090 MOS/KG [facility] Urine specimen (specimen) 10/29/2008 1:35 EDT 10/29/2008 1:54 EDT Christopher Ga MD URINALYSIS ORDERABLES Final Result Performing Organization Address [facility] de Phone Number [facility] [address] [place] [address] * TESTS ADDED BY PHONE (10/28/2008 19:25 EDT) 10/28/2008 19:2 5 EDT 10/28/2008 19:34 EDT Christopher Ga MD CHEMISTRY & BLOOD GAS ORDER LYNDSEY Final Result Performing Organization Address [facility] de Phone Number [facility] [address] [place] [address] * (ABNORMAL) OSMOLALITY,URINE (10/28/2008 19:25 EDT) Pathologist [facility] Osmolality, Ur 327(L) 392 - 1090 MOS/KG [facility] 10/28/2008 19:2 5 EDT 10/28/2008 19:36 EDT us Christopher Ga MD URINALYSIS ORDERABLES Final Result Performing Organization Address [facility] de Phone Number [facility] [address] [place] [address] * HOLD GREEN TOP (10/28/2008 19:25 EDT) [facility] Hold Green Top Hold for further testing. Specimen will be held for 5 days. [facility] 10/28/2008 19:2 5 EDT 10/28/2008 19:34 EDT us Christopher Ga MD LAB INFO SERVICE AND SUPPOR T & PHONE RESULT Final Result Performing Organization Address [facility] de Phone Number [facility] [address] [place] [address] * SODIUM, URINE RANDOM (10/28/2008 19:25 EDT) Pathologist [facility] Sodium, Ur 115.0 mEq/L [facility] Urine specimen (specimen) 10/28/2008 19:25 EDT 10/28/2008 19:36 EDT Christopher Ga MD URINALYSIS ORDERABLES Final Result Performing Organization Address [facility] de Phone Number [facility] [address] [place] [address] * GLUCOSE, SERUM (10/28/2008 19:25 EDT) Glucose, Serum 80 70 - 100 mg/dl [facility] Blood specimen (specimen) 10/28/2008 19:25 EDT 10/28/2008 19:34 EDT us Christopher Ga MD CHEMISTRY & BLOOD GAS ORDER LYNDSEY Final Result Performing Organization Address [facility] Phone Number [facility] [address] [place] [address] * ELECTROLYTES (10/28/2008 19:25 EDT) Sodium 142 [...] ORDER LYNDSEY Final Result Performing Organization Address [facility] Phone Number [facility] [address] [place] [address] * CORTISOL (10/28/2008 19:25 EDT) Cortisol 20 ug/dl [facility] Comment: 7-9a.m.=4.3-22.4 3-5p.m.=3.1-16.7 Blood specimen (specimen) 10/28/2008 19:25 EDT 10/28/2008 19:34 EDT us Christopher Ga MD CHEMISTRY & BLOOD GAS ORDER LYNDSEY Final Result Performing Organization Address [facility]/State/ZIP Co de Phone Number [facility] [address] [place] [address] * TESTOSTERONE (10/28/2008 12:41 EDT) Testosterone, Total 398 241 - 827 ng/dL [facility] Blood specimen (specimen) 10/28/2008 12:41 EDT 10/28/2008 12:44 EDT us Christopher Ga MD CHEMISTRY & BLOOD GAS ORDER LYNDSEY Final Result Performing Organization Address [facility] Co de Phone Number [facility] [address] [place] [address] * (ABNORMAL) SODIUM (10/28/2008 11:55 EDT) Pathologist [facility] Sodium 146(H) 136 - 145 mEq/L [facility] 10/28/2008 11:5 5 EDT 10/28/2008 12:24 EDT us Christopher Ga MD CHEMISTRY & BLOOD GAS ORDER LYNDSEY Final Result Performing Organization Address [facility] de Phone Number [facility] [address] [place] [address] * TESTOSTERONE (10/28/2008 11:55 EDT) Testosterone, Total Wrong tube/speci men type 241 - 827 ng/dL [facility] Blood specimen (specimen) 10/28/2008 11:55 EDT 10/28/2008 12:16 EDT us Christopher Ga MD CHEMISTRY & BLOOD GAS ORDER LYNDSEY Final Result Performing Organization Address [facility] Co de Phone Number [facility] [address] [place] [address] * CORTISOL (10/28/2008 11:55 EDT) Pathologist [facility] Cortisol Wrong tube/speci men type ug/dl [facility] Comment:SPOKE TO ANKITA Blood specimen (specimen) 10/28/2008 11:55 EDT 10/28/2008 12:16 EDT us Christopher Ga MD CHEMISTRY & BLOOD GAS ORDER LYNDSEY Final Result Performing Organization Address [facility] Co de Phone Number [facility] [address] [place] [address] * SODIUM (10/28/2008 11:55 EDT) Sodium Wrong tube/speci men type 136 - 145 mEq/L [facility] Comment:SPOKE TO ANKITA Blood specimen (specimen) 10/28/2008 11:55 EDT 10/28/2008 12:16 EDT us Christopher Ga MD CHEMISTRY & BLOOD GAS ORDER LYNDSEY Final Result Performing Organization Address [facility] de Phone Number [facility] [address] [place] [address] * SODIUM, URINE RANDOM (10/28/2008 11:45 EDT) Sodium, Ur 214.0 mEq/L [facility] Urine specimen (specimen) 10/28/2008 11:45 EDT 10/28/2008 12:14 EDT us Christopher Ga MD URINALYSIS ORDERABLES Final Result Performing Organization Address [facility] de Phone Number [facility] [address] [place] [address] * OSMOLALITY,URINE (10/28/2008 11:45 EDT) Pathologist [facility] Osmolality, Ur 512 392 - 1090 MOS/KG [facility] Urine specimen (specimen) 10/28/2008 11:45 EDT 10/28/2008 12:14 EDT us Christopher Ga MD URINALYSIS ORDERABLES Final Result Performing Organization Address [facility] Co de Phone Number [facility] [address] [place] [address] * SODIUM, URINE RANDOM (10/28/2008 10:13 EDT) Sodium, Ur 58.0 mEq/L [facility] Urine specimen (specimen) 10/28/2008 10:13 EDT 10/28/2008 10:18 EDT us Christopher Ga MD URINALYSIS ORDERABLES Final Result Performing Organization Address [facility] de Phone Number [facility] [address] [place] [address] * (ABNORMAL) OSMOLALITY,URINE (10/28/2008 10:13 EDT) Osmolality, Ur 171(L) 392 - 1090 MOS/KG [facility] Urine specimen (specimen) 10/28/2008 10:13 EDT 10/28/2008 10:18 EDT us Christopher Ga MD URINALYSIS ORDERABLES Final Result Performing Organization Address [facility] de Phone Number [facility] [address] [place] [address] * SODIUM (10/28/2008 10:13 EDT) Pathologist [facility] Sodium 144 136 - 145 mEq/L [facility] Blood specimen (specimen) 10/28/2008 10:13 EDT 10/28/2008 10:18 EDT us Christopher Ga MD CHEMISTRY & BLOOD GAS ORDER LYNDSEY Final Result Performing Organization Address [facility] de Phone Number [facility] [address] [place] [address] * TESTS ADDED BY PHONE (10/28/2008 8:15 EDT) Pathologist [facility] Tests to be added OSM [facility] GARCIA Who Called DR NAVI [facility] Location Code M3 [facility] Read Back/Confirmed ? YES [facility] 10/28/2008 8:15 EDT 10/28/2008 8:30 EDT us Christopher Ga MD CHEMISTRY & BLOOD GAS ORDER LYNDSEY Final Result Performing Organization Address [facility] Co de Phone Number [facility] [address] [place] [address] * (ABNORMAL) OSMOLALITY,URINE (10/28/2008 8:15 EDT) Osmolality, Ur 295(L) 392 - 1090 MOS/KG [facility] 10/28/2008 8:15 EDT 10/28/2008 8:30 EDT us Christopher Ga MD URINALYSIS ORDERABLES Final Result Performing Organization Address [facility] Phone Number [facility] [address] [place] [address] * SODIUM, URINE RANDOM (10/28/2008 8:15 EDT) Sodium, Ur 131.0 mEq/L [facility] Urine specimen (specimen) 10/28/2008 8:15 EDT 10/28/2008 8:30 EDT us Christopher Ga MD URINALYSIS ORDERABLES Final Result Performing Organization Address [facility] Phone Number [facility] [address] [place] [address] * (ABNORMAL) ELECTROLYTES (10/28/2008 8:15 EDT) Sodium [...] ORDER LYNDSEY Final Result Performing Organization Address [facility] Co de Phone Number [facility] [address] [place] [address] * (ABNORMAL) ELECTROLYTES (10/28/2008 6:00 EDT) Sodium [...] ORDER LYNDSEY Final Result Performing Organization Address [facility] Phone Number [facility] [address] [place] [address] * (ABNORMAL) CREATININE (10/28/2008 6:00 EDT) Creatinine 0.65(L) 0.7 - 1.5 mg/dl [facility] GFR, Calculated >60 ml/min/1.7 3m2 [facility] 10/28/2008 6:00 EDT 10/28/2008 6:16 EDT us Christopher Ga MD CHEMISTRY & BLOOD GAS ORDER LYNDSEY Final Result Performing Organization Address [facility] de Phone Number [facility] [address] [place] [address] * (ABNORMAL) BUN (10/28/2008 6:00 EDT) BUN 9(L) 10 - 26 mg/dl [facility] 10/28/2008 6:00 EDT 10/28/2008 6:16 EDT us Christopher Ga MD CHEMISTRY & BLOOD GAS ORDER LYNDSEY Final Result Performing Organization Address [facility] de Phone Number [facility] [address] [place] [address] * SODIUM, URINE RANDOM (10/28/2008 6:00 EDT) Sodium, Ur 169.0 mEq/L [facility] Urine specimen (specimen) 10/28/2008 6:00 EDT 10/28/2008 6:15 EDT us Christopher Ga MD URINALYSIS ORDERABLES Final Result Performing Organization Address [facility] Phone Number [facility] [address] [place] [address] * OSMOLALITY,URINE (10/28/2008 6:00 EDT) Osmolality, Ur 397 392 - 1090 MOS/KG [facility] Urine specimen (specimen) 10/28/2008 6:00 EDT 10/28/2008 6:15 EDT us Christopher Ga MD URINALYSIS ORDERABLES Final Result Performing Organization Address [facility] [place] [address] * GLUCOSE, SERUM (10/28/2008 4:00 EDT) Pathologist [facility] Glucose, Serum 74 70 - 100 mg/dl [facility] Blood specimen (specimen) 10/28/2008 4:00 EDT 10/28/2008 4:01 EDT us Christopher Ga MD CHEMISTRY & BLOOD GAS ORDER LYNDSEY Final Result Performing Organization Address [facility] Phone Number [facility] [address] [place] [address] * SODIUM (10/28/2008 4:00 EDT) Sodium 143 136 - 145 mEq/L [facility] Blood specimen (specimen) 10/28/2008 4:00 EDT 10/28/2008 4:01 EDT us Christopher Ga MD CHEMISTRY & BLOOD GAS ORDER LYNDSEY Final Result [facility] [address] [place] [address] * SODIUM, URINE RANDOM (10/28/2008 4:00 EDT) Sodium, Ur 177.0 mEq/L [facility] Urine specimen (specimen) 10/28/2008 4:00 EDT 10/28/2008 4:01 EDT us Christopher Ga MD URINALYSIS ORDERABLES Final Result Performing Organization Address [facility] Co de Phone Number [facility] [address] [place] [address] * OSMOLALITY,URINE (10/28/2008 4:00 EDT) Osmolality, Ur 402 392 - 1090 MOS/KG [facility] Urine specimen (specimen) 10/28/2008 4:00 EDT 10/28/2008 4:01 EDT us Christopher Ga MD URINALYSIS ORDERABLES Final Result Performing Organization Address [facility] Co de Phone Number [facility] [address] [place] [address] * SODIUM, URINE RANDOM (10/28/2008 2:30 EDT) Sodium, Ur 175.0 mEq/L [facility] Urine specimen (specimen) 10/28/2008 2:30 EDT 10/28/2008 2:35 EDT us Christopher Ga MD URINALYSIS ORDERABLES Final Result Performing Organization Address [facility] Co de Phone Number [facility] [address] [place] [address] * OSMOLALITY,URINE (10/28/2008 2:30 EDT) Osmolality, Ur 398 392 - 1090 MOS/KG [facility] Urine specimen (specimen) 10/28/2008 2:30 EDT 10/28/2008 2:35 EDT us Christopher Ga MD URINALYSIS ORDERABLES Final Result Performing Organization Address [facility]/ZIP Co de Phone Number [facility] [address] [place] [address] * SODIUM (10/28/2008 2:00 EDT) Sodium 144 136 - 145 mEq/L [facility] 10/28/2008 2:00 EDT 10/28/2008 2:14 EDT us Christopher Ga MD CHEMISTRY & BLOOD GAS ORDER LYNDSEY Final Result Performing Organization Address [facility] Co de Phone Number [facility] [address] [place] [address] * SODIUM, URINE RANDOM (10/27/2008 20:00 EDT) Sodium, Ur 213.0 mEq/L [facility] Comment:Sample retested, res ult confirmed Urine specimen (specimen) 10/27/2008 20:00 EDT 10/27/2008 20:09 EDT us Christopher Ga MD URINALYSIS ORDERABLES Final Result Performing Organization Address [facility] de Phone Number [facility] [address] [place] [address] * OSMOLALITY,URINE (10/27/2008 20:00 EDT) Osmolality, Ur 544 392 - 1090 MOS/KG [facility] Urine specimen (specimen) 10/27/2008 20:00 EDT 10/27/2008 20:09 EDT us Christopher Ga MD URINALYSIS ORDERABLES Final Result Performing Organization Address [facility] Co de Phone Number [facility] [address] [place] [address] * (ABNORMAL) ELECTROLYTES (10/27/2008 20:00 EDT) Sodium 147(H) 136 - 145 mEq/L [facility] Potassium 3.4(L) 3.5 - 5.0 mEq/L [facility] Chloride 112(H) 96 - 110 mEq/L [facility] CO2 28 24 - 32 mEq/L [facility] Blood specimen (specimen) 10/27/2008 20:00 EDT 10/27/2008 20:09 EDT us Christopher Ga MD CHEMISTRY & BLOOD GAS ORDER LYNDSEY Final Result Performing Organization Address [facility] de Phone Number [facility] [address] [place] [address] * CREATININE (10/27/2008 20:00 EDT) Creatinine 0.80 0.7 - 1.5 mg/dl [facility] GFR, Calculated >60 ml/min/1.7 3m2 [facility] Blood specimen (specimen) 10/27/2008 20:00 EDT 10/27/2008 20:09 EDT us Christopher Ga MD CHEMISTRY & BLOOD GAS ORDER LYNDSEY Final Result Performing Organization Address [facility] Phone Number [facility] [address] [place] [address] * BUN (10/27/2008 20:00 EDT) BUN 13 10 - 26 mg/dl [facility] Blood specimen (specimen) 10/27/2008 20:00 EDT 10/27/2008 20:09 EDT us Christopher Ga MD CHEMISTRY & BLOOD GAS ORDER LYNDSEY Final Result Performing Organization Address [facility] de Phone Number [facility] [address] [place] [address] * (ABNORMAL) SODIUM (10/27/2008 14:30 EDT) Sodium 152(H) 136 - 145 mEq/L [facility] Blood specimen (specimen) 10/27/2008 14:30 EDT 10/27/2008 14:47 EDT us Christopher Ga MD CHEMISTRY & BLOOD GAS ORDER LYNDSEY Final Result Performing Organization Address [facility] de Phone Number [facility] [address] [place] [address] * SODIUM, URINE RANDOM (10/27/2008 13:20 EDT) Sodium, Ur 19.0 mEq/L [facility] Urine specimen (specimen) 10/27/2008 13:20 EDT 10/27/2008 13:32 EDT us Christopher Ga MD URINALYSIS ORDERABLES Final Result Performing Organization Address [facility] de Phone Number [facility] [address] [place] [address] * (ABNORMAL) OSMOLALITY,URINE (10/27/2008 13:20 EDT) Osmolality, Ur 116(L) 392 - 1090 MOS/KG [facility] Urine specimen (specimen) 10/27/2008 13:20 EDT 10/27/2008 13:32 EDT us Christopher Ga MD URINALYSIS ORDERABLES Final Result Performing Organization Address [facility] de Phone Number [facility] [address] [place] [address] * SODIUM, URINE RANDOM (10/27/2008 12:23 EDT) Sodium, Ur 107.0 mEq/L [facility] Urine specimen (specimen) 10/27/2008 12:23 EDT 10/27/2008 12:23 EDT us Christopher Ga MD URINALYSIS ORDERABLES Final Result Performing Organization Address [facility] de Phone Number [facility] [address] [place] [address] * OSMOLALITY,URINE (10/27/2008 12:23 EDT) Osmolality, Ur 808 392 - 1090 MOS/KG [facility] Urine specimen (specimen) 10/27/2008 12:23 EDT 10/27/2008 12:23 EDT Christopher Ga MD URINALYSIS ORDERABLES Final Result Performing Organization Address [facility] Phone Number [facility] [address] [place] [address] * (ABNORMAL) SODIUM (10/27/2008 12:21 EDT) Sodium 150(H) 136 - 145 mEq/L [facility] Blood specimen (specimen) 10/27/2008 12:21 EDT 10/27/2008 12:21 EDT Christopher Ga MD CHEMISTRY & BLOOD GAS ORDER LYNDSEY Final Result Performing Organization Address [facility] Phone Number [facility] [address] [place] [address] * (ABNORMAL) SODIUM (10/27/2008 9:40 EDT) Sodium 151(H) 136 - 145 mEq/L [facility] Blood specimen (specimen) 10/27/2008 9:40 EDT 10/27/2008 9:59 EDT Christopher Ga MD CHEMISTRY & BLOOD GAS ORDER LYNDSEY Final Result Performing Organization Address [facility] de Phone Number [facility] [address] [place] [address] * (ABNORMAL) SODIUM (10/27/2008 6:50 EDT) Sodium 152(H) 136 - 145 mEq/L [facility] Comment:Sample retested, res ult confirmed Blood specimen (specimen) 10/27/2008 6:50 EDT 10/27/2008 6:52 EDT us Christopher Ga MD CHEMISTRY & BLOOD GAS ORDER LYNDSEY Final Result Performing Organization Address [facility] de Phone Number [facility] [address] [place] [address] * (ABNORMAL) SODIUM (10/27/2008 6:15 EDT) Sodium 124(LL) 136 - 145 mEq/L [facility] Comment: Sample retested, result confirmed Question specimen contaminated. Repeat Requested Blood specimen (specimen) 10/27/2008 6:15 EDT 10/27/2008 6:16 EDT us Christopher Ga MD CHEMISTRY & BLOOD GAS ORDER LYNDSEY Final Result Performing Organization Address [facility] Phone Number [facility] [address] [place] [address] * GLUCOSE, SERUM (10/27/2008 4:30 EDT) Glucose, Serum 86 70 - 100 mg/dl [facility] 10/27/2008 4:30 EDT 10/27/2008 4:34 EDT us Christopher Ga MD CHEMISTRY & BLOOD GAS ORDER LYNDSEY Final Result Performing Organization Address [facility] Phone Number [facility] [address] [place] [address] * (ABNORMAL) ELECTROLYTES (10/27/2008 4:30 EDT) Sodium [...] ORDER LYNDSEY Final Result Performing Organization Address [facility]/State/ZIP Co de Phone Number [facility] [address] [place] [address] * CREATININE (10/27/2008 4:30 EDT) Pathologist [facility] Creatinine 0.83 0.7 - 1.5 mg/dl [facility] GFR, Calculated >60 ml/min/1.7 3m2 [facility] Blood specimen (specimen) 10/27/2008 4:30 EDT 10/27/2008 4:34 EDT us Christopher Ga MD CHEMISTRY & BLOOD GAS ORDER LYNDSEY Final Result Performing Organization Address [facility] de Phone Number [facility] [address] [place] [address] * BUN (10/27/2008 4:30 EDT) BUN 14 10 - 26 mg/dl [facility] Blood specimen (specimen) 10/27/2008 4:30 EDT 10/27/2008 4:34 EDT us Christopher Ga MD CHEMISTRY & BLOOD GAS ORDER LYNDSEY Final Result Performing Organization Address [facility] Phone Number [facility] [address] [place] [address] * (ABNORMAL) SODIUM (10/27/2008 1:30 EDT) Pathologist [facility] Sodium 159(HH) 136 - 145 mEq/L [facility] Comment:Sample retested, res ult confirmed Blood specimen (specimen) 10/27/2008 1:30 EDT 10/27/2008 1:41 EDT Christopher Ga MD CHEMISTRY & BLOOD GAS ORDER LYNDSEY Final Result Performing Organization Address [facility] de Phone Number [facility] [address] [place] [address] * SODIUM, URINE RANDOM (10/27/2008 0:15 EDT) Pathologist [facility] Sodium, Ur 40.0 mEq/L [facility] Urine specimen (specimen) 10/27/2008 0:15 EDT 10/27/2008 0:19 EDT us Christopher Ga MD URINALYSIS ORDERABLES Final Result Performing Organization Address [facility] de Phone Number [facility] [address] [place] [address] * (ABNORMAL) OSMOLALITY,URINE (10/27/2008 0:15 EDT) Osmolality, Ur 201(L) 392 - 1090 MOS/KG [facility] Urine specimen (specimen) 10/27/2008 0:15 EDT 10/27/2008 0:19 EDT us Christopher Ga MD URINALYSIS ORDERABLES Final Result Performing Organization Address [facility] de Phone Number [facility] [address] [place] [address] * (ABNORMAL) SODIUM (10/26/2008 22:48 EDT) Sodium 161(HH) 136 - 145 mEq/L [facility] Comment:Sample retested, res ult confirmed Blood specimen (specimen) 10/26/2008 22:48 EDT 10/26/2008 23:00 EDT us Christopher Ga MD CHEMISTRY & BLOOD GAS ORDER LYNDSEY Final Result Performing Organization Address [facility] de Phone Number [facility] [address] [place] [address] * CORTISOL (10/26/2008 18:41 EDT) Cortisol 23 ug/dl [facility] Comment: 7-9a.m.=4.3-22.4 3-5p.m.=3.1-16.7 10/26/2008 18:4 1 EDT 10/26/2008 18:41 EDT us Christopher Ga MD CHEMISTRY & BLOOD GAS ORDER LYNDSEY Final Result Performing Organization Address [facility] Co de Phone Number [facility] [address] [place] [address] * (ABNORMAL) SODIUM (10/26/2008 18:41 EDT) Sodium 154(H) 136 - 145 mEq/L [facility] Blood specimen (specimen) 10/26/2008 18:41 EDT 10/26/2008 18:41 EDT us Christopher Ga MD CHEMISTRY & BLOOD GAS ORDER LYNDSEY Final Result Performing Organization Address [facility] de Phone Number [facility] [address] [place] [address] * (ABNORMAL) SODIUM (10/26/2008 9:59 EDT) Sodium 148(H) 136 - 145 mEq/L [facility] Blood specimen (specimen) 10/26/2008 9:59 EDT 10/26/2008 10:02 EDT us Christopher Ga MD CHEMISTRY & BLOOD GAS ORDER LYNDSEY Final Result Performing Organization Address [facility] de Phone Number [facility] [address] [place] [address] * CORTISOL (10/26/2008 6:12 EDT) Pathologist [facility] Cortisol 13 ug/dl [facility] Comment: 7-9a.m.=4.3-22.4 3-5p.m.=3.1-16.7 10/26/2008 6:12 EDT 10/26/2008 6:24 EDT us Christopher Ga MD CHEMISTRY & BLOOD GAS ORDER LYNDSEY Final Result Performing Organization Address [facility] de Phone Number [facility] [address] [place] [address] * TESTS ADDED BY PHONE (10/26/2008 6:12 EDT) Tests to be added STAT [facility] Who Called TAMIE M3 FOR DR CHARLEEN GARCIA Location Code M3 TRUE [facility] Read Back/Confirmed ? YES [facility] 10/26/2008 6:12 EDT 10/26/2008 6:24 EDT us Christopher Ga MD CHEMISTRY & BLOOD GAS ORDER LYNDSEY Final Result [facility] [address] [place] [address] * (ABNORMAL) HEMAGRAM AND DIFFERENTIAL (10/26/2008 6:12 [...] ORDERA BLES Final Result Performing Organization Address [facility] Phone Number [facility] [address] [place] [address] * GLUCOSE, SERUM (10/26/2008 6:12 EDT) Pathologist [facility] Glucose, Serum 71 70 - 100 mg/dl [facility] Blood specimen (specimen) 10/26/2008 6:12 EDT 10/26/2008 6:24 EDT us Christopher Ga MD CHEMISTRY & BLOOD GAS ORDER LYNDSEY Final Result Performing Organization Address [facility] Phone Number [facility] [address] [place] [address] * (ABNORMAL) ELECTROLYTES (10/26/2008 6:12 EDT) Pathologist [facility] Sodium 148(H) 136 - 145 mEq/L [facility] Potassium 3.6 3.5 - 5.0 mEq/L [facility] Chloride 113(H) 96 - 110 mEq/L [facility] CO2 29 24 - 32 mEq/L [facility] Blood specimen (specimen) 10/26/2008 6:12 EDT 10/26/2008 6:24 EDT us Christopher Ga MD CHEMISTRY & BLOOD GAS ORDER LYNDSEY Final Result Performing Organization Address [facility] Phone Number [facility] [address] [place] [address] * CREATININE (10/26/2008 6:12 EDT) Creatinine 0.90 0.7 - 1.5 mg/dl [facility] GFR, Calculated >60 ml/min/1.7 3m2 [facility] Blood specimen (specimen) 10/26/2008 6:12 EDT 10/26/2008 6:24 EDT us Christopher Ga MD CHEMISTRY & BLOOD GAS ORDER LYNDSEY Final Result Performing Organization Address [facility] de Phone Number [facility] [address] [place] [address] * BUN (10/26/2008 6:12 EDT) BUN 20 10 - 26 mg/dl [facility] Blood specimen (specimen) 10/26/2008 6:12 EDT 10/26/2008 6:24 EDT us Christopher Ga MD CHEMISTRY & BLOOD GAS ORDER LYNDSEY Final Result Performing Organization Address [facility] Phone Number [facility] [address] [place] [address] * GLUCOSE, SERUM (10/26/2008 1:57 EDT) Glucose, Serum 71 70 - 100 mg/dl [facility] Blood specimen (specimen) 10/26/2008 1:57 EDT 10/26/2008 2:01 EDT us Christopher Ga MD CHEMISTRY & BLOOD GAS ORDER LYNDSEY Final Result Performing Organization Address [facility] de Phone Number [facility] [address] [place] [address] * (ABNORMAL) SODIUM (10/26/2008 1:57 EDT) Sodium 148(H) 136 - 145 mEq/L [facility] Blood specimen (specimen) 10/26/2008 1:57 EDT 10/26/2008 2:01 EDT Christopher Ga MD CHEMISTRY & BLOOD GAS ORDER LYNDSEY Final Result Performing Organization Address [facility] Co de Phone Number [facility] [address] [place] [address] * (ABNORMAL) SODIUM (10/25/2008 22:00 EDT) Sodium 147(H) 136 - 145 mEq/L [facility] Blood specimen (specimen) 10/25/2008 22:00 EDT 10/25/2008 22:08 EDT us Christopher Ga MD CHEMISTRY & BLOOD GAS ORDER LYNDSEY Final Result Performing Organization Address [facility] de Phone Number [facility] [address] [place] [address] * GLUCOSE, GLUCOMETER (10/25/2008 20:59 EDT) Glucose, Fingerstick 93 70 - 100 mg/dl [facility] [employer] Professor ID [id number] Test Performed by Nursing Services [facility] 10/25/2008 20:5 9 EDT 10/25/2008 23:05 EDT us Christopher Ga MD CHEMISTRY & BLOOD GAS ORDER LYNDSEY Final Result Performing Organization Address [facility] de Phone Number [facility] [address] [place] [address] * HOLD GREEN TOP (10/25/2008 20:05 EDT) Hold Green Top Hold for further testing. Specimen will be held for 5 days. [facility] 10/25/2008 20:0 5 EDT 10/25/2008 20:18 EDT us Christopher Ga MD LAB INFO SERVICE AND SUPPOR T & PHONE RESULT Final Result Performing Organization Address [facility] Co de Phone Number [facility] [address] [place] [address] * GLUCOSE, SERUM (10/25/2008 20:05 EDT) Glucose, Serum 73 70 - 100 mg/dl [facility] Blood specimen (specimen) 10/25/2008 20:05 EDT 10/25/2008 20:18 EDT us Christopher Ga MD CHEMISTRY & BLOOD GAS ORDER LYNDSEY Final Result Performing Organization Address [facility] de Phone Number [facility] [address] [place] [address] * (ABNORMAL) ELECTROLYTES (10/25/2008 20:05 EDT) Sodium [...] ORDER LYNDSEY Final Result Performing Organization Address [facility] de Phone Number [facility] [address] [place] [address] * CREATININE (10/25/2008 20:05 EDT) Pathologist [facility] Creatinine 0.80 0.7 - 1.5 mg/dl [facility] GFR, Calculated >60 ml/min/1.7 3m2 [facility] Blood specimen (specimen) 10/25/2008 20:05 EDT 10/25/2008 20:18 EDT us Christopher Ga MD CHEMISTRY & BLOOD GAS ORDER LYNDSEY Final Result Performing Organization Address [facility] de Phone Number [facility] [address] [place] [address] * BUN (10/25/2008 20:05 EDT) BUN 16 10 - 26 mg/dl [facility] Blood specimen (specimen) 10/25/2008 20:05 EDT 10/25/2008 20:18 EDT us Christopher Ga MD CHEMISTRY & BLOOD GAS ORDER LYNDSEY Final Result Performing Organization Address [facility] de Phone Number [facility] [address] [place] [address] * (ABNORMAL) SODIUM (10/25/2008 18:00 EDT) Sodium 148(H) 136 - 145 mEq/L [facility] Blood specimen (specimen) 10/25/2008 18:00 EDT 10/25/2008 18:02 EDT us Christopher Ga MD CHEMISTRY & BLOOD GAS ORDER LYNDSEY Final Result Performing Organization Address [facility] Phone Number [facility] [address] [place] [address] * (ABNORMAL) SODIUM (10/25/2008 16:00 EDT) Sodium 148(H) 136 - 145 mEq/L [facility] Blood specimen (specimen) 10/25/2008 16:00 EDT 10/25/2008 16:24 EDT us Christopher Ga MD CHEMISTRY & BLOOD GAS ORDER LYNDSEY Final Result Performing Organization Address [facility] Phone Number [facility] [address] [place] [address] * PORTABLE CHEST 1 VIEW (10/25/2008 12:50 [...] Christopher Ga MD IMG DIAGNOSTIC IMAGING [facility] Final Result * GLUCOSE, SERUM (10/25/2008 12:45 EDT) Glucose, Serum 83 70 - 100 mg/dl [facility] 10/25/2008 12:4 5 EDT 10/25/2008 12:56 EDT us Christopher Ga MD CHEMISTRY & BLOOD GAS ORDER LYNDSEY Final Result [facility] [address] [place] [address] * (ABNORMAL) SODIUM (10/25/2008 12:45 EDT) Sodium 148(H) 136 - 145 mEq/L [facility] Blood specimen (specimen) 10/25/2008 12:45 EDT 10/25/2008 12:56 EDT us Christopher Ga MD CHEMISTRY & BLOOD GAS ORDER LYNDSEY Final Result Performing Organization Address [facility] Phone Number [facility] [address] [place] [address] * (ABNORMAL) SODIUM (10/25/2008 10:00 EDT) Sodium 146(H) 136 - 145 mEq/L [facility] Blood specimen (specimen) 10/25/2008 10:00 EDT 10/25/2008 10:07 EDT us Christopher Ga MD CHEMISTRY & BLOOD GAS ORDER LYNDSEY Final Result Performing Organization Address [facility] Phone Number [facility] [address] [place] [address] * OSMOLALITY,URINE (10/25/2008 8:06 EDT) Osmolality, Ur 513 392 - 1090 MOS/KG [facility] 10/25/2008 8:06 EDT 10/25/2008 8:06 EDT us Christopher Ga MD URINALYSIS ORDERABLES Final Result Performing Organization Address [facility] Phone Number [facility] [address] [place] [address] * SODIUM, URINE RANDOM (10/25/2008 8:06 EDT) Sodium, Ur <5.0 mEq/L [facility] 10/25/2008 8:06 EDT 10/25/2008 8:06 EDT us Christopher Ga MD URINALYSIS ORDERABLES Final Result Performing Organization Address [facility] de Phone Number [facility] [address] [place] [address] * (ABNORMAL) OSMOLALITY (10/25/2008 8:04 EDT) Osmolality Cintia 310(H) 280 - 300 MOS/KG [facility] Blood specimen (specimen) 10/25/2008 8:04 EDT 10/25/2008 8:04 EDT us Christopher Ga MD CHEMISTRY & BLOOD GAS ORDER LYNDSEY Final Result Performing Organization Address [facility] de Phone Number [facility] [address] [place] [address] * GLUCOSE, SERUM (10/25/2008 8:04 EDT) Pathologist [facility] Glucose, Serum 80 70 - 100 mg/dl [facility] Blood specimen (specimen) 10/25/2008 8:04 EDT 10/25/2008 8:04 EDT us Christopher Ga MD CHEMISTRY & BLOOD GAS ORDER LYNDSEY Final Result Performing Organization Address [facility] Phone Number [facility] [address] [place] [address] * (ABNORMAL) ELECTROLYTES (10/25/2008 8:04 EDT) Pathologist [facility] Sodium 148(H) 136 - 145 mEq/L [facility] Potassium 3.8 3.5 - 5.0 mEq/L [facility] Chloride 114(H) 96 - 110 mEq/L [facility] CO2 27 24 - 32 mEq/L [facility] Blood specimen (specimen) 10/25/2008 8:04 EDT 10/25/2008 8:04 EDT us Christopher Ga MD CHEMISTRY & BLOOD GAS ORDER LYNDSEY Final Result Performing Organization Address [facility] de Phone Number [facility] [address] [place] [address] * (ABNORMAL) GLUCOSE, SERUM (10/25/2008 4:49 EDT) Pathologist [facility] Glucose, Serum 101(H) 70 - 100 mg/dl [facility] 10/25/2008 4:49 EDT 10/25/2008 4:49 EDT us Christopher Ga MD CHEMISTRY & BLOOD GAS ORDER LYNDSEY Final Result Performing Organization Address [facility] de Phone Number [facility] [address] [place] [address] * POTASSIUM (10/25/2008 4:49 EDT) Potassium 3.7 3.5 - 5.0 mEq/L [facility] 10/25/2008 4:49 EDT 10/25/2008 4:49 EDT us Christopher Ga MD CHEMISTRY & BLOOD GAS ORDER LYNDSEY Final Result Performing Organization Address [facility] Phone Number [facility] [address] [place] [address] * CO2 (10/25/2008 4:49 EDT) CO2 25 24 - 32 mEq/L [facility] 10/25/2008 4:49 EDT 10/25/2008 4:49 EDT us Christopher Ga MD CHEMISTRY & BLOOD GAS ORDER LYNDSEY Final Result Performing Organization Address [facility] de Phone Number [facility] [address] [place] [address] * (ABNORMAL) CHLORIDE (10/25/2008 4:49 EDT) Chloride 115(H) 96 - 110 mEq/L [facility] 10/25/2008 4:49 EDT 10/25/2008 4:49 EDT us Christopher Ga MD CHEMISTRY & BLOOD GAS ORDER LYNDSEY Final Result Performing Organization Address [facility] de Phone Number [facility] [address] [place] [address] * (ABNORMAL) OSMOLALITY (10/25/2008 4:49 EDT) Osmolality Cintia 309(H) 280 - 300 MOS/KG [facility] 10/25/2008 4:49 EDT 10/25/2008 4:49 EDT us Christopher Ga MD CHEMISTRY & BLOOD GAS ORDER LYNDSEY Final Result Performing Organization Address [facility] Phone Number [facility] [address] [place] [address] * (ABNORMAL) SODIUM (10/25/2008 4:49 EDT) Sodium 148(H) 136 - 145 mEq/L [facility] 10/25/2008 4:49 EDT 10/25/2008 4:49 EDT us Christopher Ga MD CHEMISTRY & BLOOD GAS ORDER LYNDSEY Final Result Performing Organization Address [facility] Phone Number [facility] [address] [place] [address] * (ABNORMAL) CREATININE (10/25/2008 4:49 EDT) Pathologist [facility] Creatinine 0.69(L) 0.7 - 1.5 mg/dl [facility] GFR, Calculated >60 ml/min/1.7 3m2 [facility] 10/25/2008 4:49 EDT 10/25/2008 4:49 EDT us Christopher Ga MD CHEMISTRY & BLOOD GAS ORDER LYNDSEY Final Result Performing Organization Address [facility] de Phone Number [facility] [address] [place] [address] * BUN (10/25/2008 4:49 EDT) BUN 10 10 - 26 mg/dl [facility] 10/25/2008 4:49 EDT 10/25/2008 4:49 EDT us Christopher Ga MD CHEMISTRY & BLOOD GAS ORDER LYNDSEY Final Result Performing Organization Address [facility] de Phone Number [facility] [address] [place] [address] * (ABNORMAL) OSMOLALITY,URINE (10/25/2008 3:59 EDT) Osmolality, Ur 143(L) 392 - 1090 MOS/KG [facility] 10/25/2008 3:59 EDT 10/25/2008 3:59 EDT us Christopher Ga MD URINALYSIS ORDERABLES Final Result Performing Organization Address [facility] de Phone Number [facility] [address] [place] [address] * SODIUM, URINE RANDOM (10/25/2008 3:59 EDT) Sodium, Ur <5.0 mEq/L [facility] 10/25/2008 3:59 EDT 10/25/2008 3:59 EDT us Christopher Ga MD URINALYSIS ORDERABLES Final Result Performing Organization Address [facility] de Phone Number [facility] [address] [place] [address] * OSMOLALITY,URINE (10/25/2008 0:15 EDT) Osmolality, Ur 413 392 - 1090 MOS/KG [facility] 10/25/2008 0:15 EDT 10/25/2008 0:15 EDT us Christopher Ga MD URINALYSIS ORDERABLES Final Result Performing Organization Address [facility] de Phone Number [facility] [address] [place] [address] * SODIUM, URINE RANDOM (10/25/2008 0:15 EDT) Sodium, Ur 9.0 mEq/L [facility] 10/25/2008 0:15 EDT 10/25/2008 0:15 EDT us Christopher Ga MD URINALYSIS ORDERABLES Final Result Performing Organization Address [facility] Phone Number [facility] [address] [place] [address] * (ABNORMAL) GLUCOSE, SERUM (10/25/2008 0:15 EDT) Glucose, Serum 113(H) 70 - 100 mg/dl [facility] 10/25/2008 0:15 EDT 10/25/2008 0:15 EDT us Christopher Ga MD CHEMISTRY & BLOOD GAS ORDER LYNDSEY Final Result Performing Organization Address [facility] Phone Number [facility] [address] [place] [address] * (ABNORMAL) OSMOLALITY (10/25/2008 0:15 EDT) Osmolality Cintia 309(H) 280 - 300 MOS/KG [facility] 10/25/2008 0:15 EDT 10/25/2008 0:15 EDT us Christopher Ga MD CHEMISTRY & BLOOD GAS ORDER LYNDSEY Final Result Performing Organization Address [facility] Phone Number [facility] [address] [place] [address] * (ABNORMAL) ELECTROLYTES (10/25/2008 0:15 EDT) Sodium 147(H) 136 - 145 mEq/L [facility] Potassium 3.9 3.5 - 5.0 mEq/L [facility] Chloride 115(H) 96 - 110 mEq/L [facility] CO2 24 24 - 32 mEq/L [facility] 10/25/2008 0:15 EDT 10/25/2008 0:15 EDT us Christopher Ga MD CHEMISTRY & BLOOD GAS ORDER LYNDSEY Final Result Performing Organization Address [facility] Phone Number [facility] [address] [place] [address] * SODIUM, URINE RANDOM (10/24/2008 20:00 EDT) Sodium, Ur 92.0 mEq/L [facility] 10/24/2008 20:0 0 EDT 10/24/2008 20:23 EDT us Christopher Ga MD URINALYSIS ORDERABLES Final Result Performing Organization Address [facility] de Phone Number [facility] [address] [place] [address] * OSMOLALITY,URINE (10/24/2008 20:00 EDT) Osmolality, Ur 594 392 - 1090 MOS/KG [facility] 10/24/2008 20:0 0 EDT 10/24/2008 20:23 EDT us Christopher Ga MD URINALYSIS ORDERABLES Final Result Performing Organization Address [facility] Phone Number [facility] [address] [place] [address] * (ABNORMAL) OSMOLALITY (10/24/2008 20:00 EDT) Osmolality Cintia 319(H) 280 - 300 MOS/KG [facility] 10/24/2008 20:0 0 EDT 10/24/2008 20:20 EDT Christopher Ga MD CHEMISTRY & BLOOD GAS ORDER LYNDSEY Final Result Performing Organization Address [facility] de Phone Number [facility] [address] [place] [address] * SODIUM, URINE RANDOM (10/23/2008 22:30 EDT) Sodium, Ur 70.0 mEq/L [facility] Comment:Sample retested, res ult confirmed 10/23/2008 22:3 0 EDT 10/23/2008 22:33 EDT us Christopher Ga MD URINALYSIS ORDERABLES Final Result Performing Organization Address [facility] de Phone Number [facility] [address] [place] [address] * OSMOLALITY, URINE (10/23/2008 22:30 EDT) Osmolality, Ur 426 392 - 1090 MOS/KG [facility] 10/23/2008 22:3 0 EDT 10/23/2008 22:33 EDT us Christopher Ga MD URINALYSIS ORDERABLES Final Result Performing Organization Address [facility] de Phone Number [facility] [address] [place] [address] * (ABNORMAL) URINALYSIS, CHEMICAL (10/23/2008 22:30 EDT) Color, UA Yellow [facility] Clarity, UA Clear [facility] Glucose, UA Norm NORM [facility] Bilirubin, UA Neg NEG [facility] Ketones, UA Neg NEG [facility] Specific [place], Urine 1.015 1.005 - 1.02 [facility] [...] URINALYSIS ORDERABLES Final Result Performing Organization Address [facility] de Phone Number [facility] [address] [place] [address] * URINE MICROSCOPIC (10/23/2008 22:30 EDT) WBC, [...] URINALYSIS ORDERABLES Final Result Performing Organization Address [facility] de Phone Number [facility] [address] [place] [address] * (ABNORMAL) POTASSIUM (10/23/2008 20:49 EDT) Potassium 6.1(HH) 3.5 - 5.0 mEq/L [facility] Comment: Hemolysis may elevate potassium result. Slight hemolysis QNS to repeat 10/23/2008 20:4 9 EDT 10/23/2008 20:54 EDT us Christopher Ga MD CHEMISTRY & BLOOD GAS ORDER LYNDSEY Final Result Performing Organization Address [facility] de Phone Number [facility] [address] [place] [address] * CREATININE (10/23/2008 20:49 EDT) Creatinine 0.80 0.7 - 1.5 mg/dl [facility] Comment:Slight hemolysis GFR, Calculated >60 ml/min/1.7 3m2 [facility] Comment:Slight hemolysis 10/23/2008 20:4 9 EDT 10/23/2008 20:54 EDT us Christopher Ga MD CHEMISTRY & BLOOD GAS ORDER LYNDSEY Final Result Performing Organization Address [facility] Co de Phone Number [facility] [address] [place] [address] * BUN (10/23/2008 20:49 EDT) Pathologist [facility] BUN 13 10 - 26 mg/dl [facility] Comment: Results may be affected due to hemolysis. Slight hemolysis 10/23/2008 20:4 9 EDT 10/23/2008 20:54 EDT us Christopher Ga MD CHEMISTRY & BLOOD GAS ORDER LYNDSEY Final Result Performing Organization Address [facility] de Phone Number [facility] [address] [place] [address] * (ABNORMAL) SODIUM (10/23/2008 20:49 EDT) [facility] Sodium 153(H) 136 - 145 mEq/L [facility] Comment:Slight hemolysis 10/23/2008 20:4 9 EDT 10/23/2008 20:54 EDT us Christopher Ga MD CHEMISTRY & BLOOD GAS ORDER LYNDSEY Final Result Performing Organization Address [facility] de Phone Number [facility] [address] [place] [address] * (ABNORMAL) ELECTROLYTES (10/23/2008 16:00 EDT) [facility] Sodium 150(H) 136 - 145 mEq/L [facility] Potassium 4.0 3.5 - 5.0 mEq/L [facility] Chloride 117(H) 96 - 110 mEq/L [facility] CO2 22(L) 24 - 32 mEq/L [facility] 10/23/2008 16:0 0 EDT 10/23/2008 16:07 EDT us Christopher Ga MD CHEMISTRY & BLOOD GAS ORDER LYNDSEY Final Result Performing Organization Address [facility] de Phone Number [facility] [address] [place] [address] * GLUCOSE, SERUM (10/23/2008 8:45 EDT) [facility] Glucose, Serum 79 70 - 100 mg/dl [facility] 10/23/2008 8:45 EDT 10/23/2008 9:01 EDT us Thad Marroquin MD MSc CHEMISTRY & BLOOD GAS ORDER LYNDSEY Final Result Performing Organization Address [facility] de Phone Number [facility] [address] [place] [address] * CREATININE (10/23/2008 8:45 EDT) Pathologist [facility] Creatinine 0.80 0.7 - 1.5 mg/dl [facility] GFR, Calculated >60 ml/min/1.7 3m2 [facility] 10/23/2008 8:45 EDT 10/23/2008 9:01 EDT Thad Marroquin MD, MSc CHEMISTRY & BLOOD GAS ORDER LYNDSEY Final Result Performing Organization Address [facility] de Phone Number [facility] [address] [place] [address] * BUN (10/23/2008 8:45 EDT) Pathologist [facility] BUN 10 10 - 26 mg/dl [facility] 10/23/2008 8:45 EDT 10/23/2008 9:01 EDT us Thad Marroquin MD, MSc CHEMISTRY & BLOOD GAS ORDER LYNDSEY Final Result Performing Organization Address [facility] de Phone Number [facility] [address] [place] [address] * (ABNORMAL) ELECTROLYTES (10/23/2008 8:45 EDT) Pathologist [facility] Sodium 148(H) 136 - 145 mEq/L [facility] Potassium 3.4(L) 3.5 - 5.0 mEq/L [facility] Chloride 117(H) 96 - 110 mEq/L [facility] CO2 22(L) 24 - 32 mEq/L [facility] 10/23/2008 8:45 EDT 10/23/2008 9:01 EDT us Thad Marroquin MD MSc CHEMISTRY & BLOOD GAS ORDER LYNDSEY Final Result [facility] [address] [place] [address] * (ABNORMAL) HEMAGRAM AND DIFFERENTIAL (10/23/2008 8:45 [...] ORDERA BLES Final Result Performing Organization Address [facility] Co de Phone Number [facility] [address] [place] [address] * GLUCOSE, SERUM (10/23/2008 6:15 EDT) Glucose, Serum 80 70 - 100 mg/dl [facility] 10/23/2008 6:15 EDT 10/23/2008 6:35 EDT us Thad Marroquin MD, MSc CHEMISTRY & BLOOD GAS ORDER LYNDSEY Final Result Performing Organization Address [facility] de Phone Number [facility] [address] [place] [address] * CREATININE (10/23/2008 6:15 EDT) Creatinine 0.80 0.7 - 1.5 mg/dl [facility] GFR, Calculated >60 ml/min/1.7 3m2 [facility] 10/23/2008 6:15 EDT 10/23/2008 6:35 EDT us Thad Marroquin MD, MSc CHEMISTRY & BLOOD GAS ORDER LYNDSEY Final Result Performing Organization Address [facility] Co de Phone Number [facility] [address] [place] [address] * BUN (10/23/2008 6:15 EDT) BUN 11 10 - 26 mg/dl [facility] 10/23/2008 6:15 EDT 10/23/2008 6:35 EDT us Thad Marroquin MD, MSc CHEMISTRY & BLOOD GAS ORDER LYNDSEY Final Result Performing Organization Address City/[facility] Co de Phone Number [facility] [address] [place] [address] * (ABNORMAL) ELECTROLYTES (10/23/2008 6:15 EDT) Sodium [...] LYNDSEY Final Result [facility] [address] [place] [address] * (ABNORMAL) HEMAGRAM AND DIFFERENTIAL (10/23/2008 6:15 EDT) Pathologist [facility] WBC 1.91(L) 4.0 - 10.4 K/cmm [facility] [...] ORDERA BLES Final Result Performing Organization Address [facility] Co de Phone Number [facility] [address] [place] [address] * GLUCOSE, GLUCOMETER (10/23/2008 6:02 EDT) Glucose, Fingerstick 89 70 - 100 mg/dl [facility] Communications Media Professor ID [id number] Test Performed by Nursing Services [facility] 10/23/2008 6:02 EDT 10/25/2008 4:28 EDT us Christopher Ga MD CHEMISTRY & BLOOD GAS ORDER LYNDSEY Final Result Performing Organization Address [facility] de Phone Number [facility] [address] [place] [address] * (ABNORMAL) BLOOD GAS, G3 ISTAT (10/23/2008 [...] [facility] Sample Type VENOUS [facility] pants maker [place] [id number] Test Performed by Respiratory For non-arterial reference ranges, please see ISTAT procedure. [facility] 10/23/2008 5:49 EDT 10/23/2008 5:58 EDT us Thad Marroquin MD, MSc CHEMISTRY & BLOOD GAS ORDER LYNDSEY Final Result Performing Organization Address [facility] de Phone Number [facility] [address] [place] [address] * (ABNORMAL) BLOOD GAS, G3 ISTAT (10/23/2008 [...] LAB Sample Type NOT [place]IV[place] [id number] Test performed by Chemistry [facility] 10/23/2008 2:13 EDT 10/23/2008 2:19 EDT Result Devorah Marroquin MD, MSc CHEMISTRY & BLOOD GAS ORDER LYNDSEY Final Result Performing Organization Address [facility] de Phone Number [facility] [address] [place] [address] * (ABNORMAL) ELECTROLYTES (10/23/2008 2:00 EDT) Sodium [...] ORDER LYNDSEY Final Result Performing Organization Address [facility] Co de Phone Number [facility] [address] [place] [address] * ELECTROLYTES (10/23/2008 2:00 EDT) 10/23/2008 2:00 EDT 10/23/2008 2:07 EDT us Thad Marroquin MD MSc CHEMISTRY & BLOOD GAS ORDER LYNDSEY Final Result Performing Organization Address [facility] de Phone Number [facility] [address] [place] [address] * BACTERIAL CULTURE, BLOOD (10/23/2008 2:00 EDT) Specimen Description Blood Right Arm Total volume of blood collected: 6 ml Pediatric bottle received Volume of blood collected may not be adequate for detection of bacteremia/se pticemia. [facility] Result No growth [facility] Report Status Final [id number] [facility] 10/23/2008 2:00 EDT 10/23/2008 7:45 EDT us Thad Marroquin MD MSc MICROBIOLOGY - [facility] Final Result Performing Organization Address [facility] de Phone Number [facility] [address] [place] [address] * (ABNORMAL) GLUCOSE, GLUCOMETER (10/22/2008 21:12 EDT) Glucose, Fingerstick 122(H) 70 - 100 mg/dl [facility] Communications Media Professor ID [id number] Test Performed by Nursing Services [facility] 10/22/2008 21:1 2 EDT 10/22/2008 21:23 EDT us Christopher Ga MD CHEMISTRY & BLOOD GAS ORDER LYNDSEY Final Result Performing Organization Address [facility] de Phone Number [facility] [address] [place] [address] * (ABNORMAL) GLUCOSE, SERUM (10/22/2008 18:07 EDT) Glucose, Serum 109(H) 70 - 100 mg/dl [facility] 10/22/2008 18:0 7 EDT 10/22/2008 18:07 EDT us Christopher Ga MD CHEMISTRY & BLOOD GAS ORDER LYNDSEY Final Result Performing Organization Address [facility] de Phone Number [facility] [address] [place] [address] * ELECTROLYTES (10/22/2008 18:07 EDT) Sodium 141 136 - 145 mEq/L [facility] Potassium 3.7 3.5 - 5.0 mEq/L [facility] Chloride 108 96 - 110 mEq/L [facility] CO2 24 24 - 32 mEq/L [facility] 10/22/2008 18:0 7 EDT 10/22/2008 18:07 EDT us Christopher Ga MD CHEMISTRY & BLOOD GAS ORDER LYNDSEY Final Result Performing Organization Address [facility] de Phone Number [facility] [address] [place] [address] * (ABNORMAL) ELECTROLYTES (10/22/2008 11:15 EDT) Sodium [...] ORDER LYNDSEY Final Result Performing Organization Address [facility] de Phone Number [facility] [address] [place] [address] * (ABNORMAL) GLUCOSE, GLUCOMETER (10/22/2008 11:05 EDT) Glucose, Fingerstick 114(H) 70 - 100 mg/dl [facility] Communications Media Professor ID [id number] Test Performed by Nursing Services [facility] 10/22/2008 11:0 5 EDT 10/22/2008 23:16 EDT Thad Marroquin MD MSc CHEMISTRY & BLOOD GAS ORDER LYNDSEY Final Result Performing Organization Address City/[facility] Co de Phone Number [facility] [address] [place] [address] * (ABNORMAL) ELECTROLYTES (10/22/2008 7:36 EDT) Sodium 134(L) 136 - 145 mEq/L [facility] Potassium 4.5 3.5 - 5.0 mEq/L [facility] Chloride 106 96 - 110 mEq/L [facility] CO2 21(L) 24 - 32 mEq/L [facility] 10/22/2008 7:36 EDT 10/22/2008 7:36 EDT Christopher Ga MD CHEMISTRY & BLOOD GAS ORDER LYNDSEY Final Result Performing Organization Address [facility] de Phone Number [facility] [address] [place] [address] * (ABNORMAL) GLUCOSE, GLUCOMETER (10/22/2008 7:26 EDT) Glucose, Fingerstick 124(H) 70 - 100 mg/dl [facility] Communications Media Professor ID [id number] Test Performed by Nursing Services [facility] 10/22/2008 7:26 EDT 10/22/2008 23:16 EDT Thad Marroquin MD MSc CHEMISTRY & BLOOD GAS ORDER LYNDSEY Final Result Performing Organization Address City/[facility] Co de Phone Number [facility] [address] [place] [address] * GLUCOSE, SERUM (10/22/2008 3:29 EDT) Glucose, Serum 95 70 - 100 mg/dl [facility] 10/22/2008 3:29 EDT 10/22/2008 3:29 EDT us Christopher Ga MD CHEMISTRY & BLOOD GAS ORDER LYNDSEY Final Result Performing Organization Address [facility] de Phone Number [facility] [address] [place] [address] * (ABNORMAL) PTT (10/22/2008 3:29 EDT) PTT 39(H) 20 - 35 secs [facility] Comment:Therapeutic Heparin range: 60-100 seconds 10/22/2008 3:29 EDT 10/22/2008 3:29 EDT us Christopher Ga MD HEMATOLOGY & PF4 ORDERABLES Final Result Performing Organization Address [facility] Phone Number [facility] [address] [place] [address] * (ABNORMAL) PROTIME (10/22/2008 3:29 EDT) Pro [...] PF4 ORDERABLES Final Result Performing Organization Address [facility] de Phone Number [facility] [address] [place] [address] * PHOSPHORUS (10/22/2008 3:29 EDT) Phosphorus 3.6 2.5 - 4.5 mg/dl [facility] 10/22/2008 3:29 EDT 10/22/2008 3:29 EDT us Christopher Ga MD CHEMISTRY & BLOOD GAS ORDER LYNDSEY Final Result Performing Organization Address [facility] de Phone Number [facility] [address] [place] [address] * (ABNORMAL) MAGNESIUM (10/22/2008 3:29 EDT) Magnesium 1.4(L) 1.7 - 2.8 mg/dl [facility] 10/22/2008 3:29 EDT 10/22/2008 3:29 EDT us Christopher Ga MD CHEMISTRY & BLOOD GAS ORDER LYNDSEY Final Result Performing Organization Address [facility] de Phone Number [facility] [address] [place] [address] * (ABNORMAL) CREATININE (10/22/2008 3:29 EDT) Creatinine 0.60(L) 0.7 - 1.5 mg/dl [facility] GFR, Calculated >60 ml/min/1.7 3m2 [facility] 10/22/2008 3:29 EDT 10/22/2008 3:29 EDT us Christopher Ga MD CHEMISTRY & BLOOD GAS ORDER LYNDSEY Final Result Performing Organization Address [facility] de Phone Number [facility] [address] [place] [address] * (ABNORMAL) BUN (10/22/2008 3:29 EDT) BUN 6(L) 10 - 26 mg/dl [facility] 10/22/2008 3:29 EDT 10/22/2008 3:29 EDT us Christopher Ga MD CHEMISTRY & BLOOD GAS ORDER LYNDSEY Final Result Performing Organization Address [facility] Co de Phone Number [facility] [address] [place] [address] * (ABNORMAL) ELECTROLYTES (10/22/2008 3:29 EDT) Sodium 132(L) 136 - 145 mEq/L [facility] Potassium 5.3(H) 3.5 - 5.0 mEq/L [facility] Chloride 105 96 - 110 mEq/L [facility] CO2 21(L) 24 - 32 mEq/L [facility] 10/22/2008 3:29 EDT 10/22/2008 3:29 EDT us Christopher Ga MD CHEMISTRY & BLOOD GAS ORDER LYNDSEY Final Result Performing Organization Address [facility] de Phone Number [facility] [address] [place] [address] * (ABNORMAL) HEMAGRAM (10/22/2008 3:29 EDT) WBC 3.60(L) 4.0 - 10.4 K/cmm [facility] RBC 4.25(L) 4.36 - 5.78 M/cmm [facility] Hemoglobin 10.8(L) 13.8 - 17.3 gm/dl [facility] HCT 31.8(L) 39.5 - 50.2 % [facility] MCV 75(L) 81 - 95 fl [facility] MCH 25.5(L) 27.6 - 33.0 pg [facility] MCHC 34.1 32.8 - 36.4 gm/dl [facility] PLT 111(L) 141 - 320 K/cmm [facility] RDW-CV 17.1(H) 11.8 - 14.1 % [facility] 10/22/2008 3:29 EDT 10/22/2008 3:29 EDT us Christopher Ga MD HEMATOLOGY & PF4 ORDERABLES Final Result Performing Organization Address [facility] de Phone Number [facility] [address] [place] [address] * (ABNORMAL) OSMOLALITY, URINE (10/22/2008 0:43 EDT) Osmolality, Ur 64(L) 392 - 1090 MOS/KG [facility] 10/22/2008 0:43 EDT 10/22/2008 0:43 EDT us Christopher Ga MD URINALYSIS ORDERABLES Final Result Performing Organization Address [facility] de Phone Number [facility] [address] [place] [address] * SODIUM, URINE RANDOM (10/22/2008 0:43 EDT) Pathologist [facility] Sodium, Ur <5.0 mEq/L [facility] 10/22/2008 0:43 EDT 10/22/2008 0:43 EDT us Christopher aG MD URINALYSIS ORDERABLES Final Result Performing Organization Address [facility] Phone Number [facility] [address] [place] [address] * GLUCOSE, GLUCOMETER (10/22/2008 0:19 EDT) [facility] Glucose, Fingerstick 87 70 - 100 mg/dl [facility] Communications Media Professor ID [id number] Test Performed by Nursing Services [facility] 10/22/2008 0:19 EDT 10/22/2008 23:16 EDT us Thad Marroquin MD MSc CHEMISTRY & BLOOD GAS ORDER LYNDSEY Final Result Performing Organization Address [facility] Phone Number [facility] [address] [place] [address] * (ABNORMAL) OSMOLALITY (10/22/2008 0:00 EDT) [facility] Osmolality Cintia 273(L) 280 - 300 MOS/KG [facility] 10/22/2008 10/22/2008 0:2 2 EDT us Christopher Ga MD CHEMISTRY & BLOOD GAS ORDER LYNDSEY Final Result Performing Organization Address [facility] de Phone Number [facility] [address] [place] [address] * (ABNORMAL) ELECTROLYTES (10/22/2008 0:00 EDT) Sodium 127(L) 136 - 145 mEq/L [facility] Potassium 5.5(H) 3.5 - 5.0 mEq/L [facility] Chloride 101 96 - 110 mEq/L [facility] CO2 21(L) 24 - 32 mEq/L [facility] 10/22/2008 10/22/2008 0:2 2 EDT us Christopher Ga MD CHEMISTRY & BLOOD GAS ORDER LYNDSEY Final Result [facility] [address] [place] [address] documented in this encounter Visit Diagnoses Not on filedocumented in this encounter Care Teams International Student Counselor Relationship Specialty Start Date End Date Corin Skinner MD [address] [place] [phone] PCP - General 10/24/08 08/21/09 documented as of this encounter
--- OUTSIDE RECORDS SUMMARY | 2024-08-03 13:51 | XMS_ITS | Encounter Summary ---
Author Organization [facility] Address [address] [place] [address] Care Team Providers Care Presbyterian Clergy Name Role Phone Corin Skinner MD Primary Care Provider [phone]- [phone] Encounter Details Date Type Department Care Team (Late st Contact Info) Description 10/21/2008 Before PRISM Converted Visit (Maple) [facility] - Maple conversion [address] [place], [place] [address] Christopher Ga MD [address] [place] [phone] Social History Tobacco Use Types Packs/Day [...] Description 10/01/2024 13:[address] [facility] Endocrinology - [facility] [address] [place] [address] Wilder Zaidi DO [address] [facility] [address] [place] [address] documented as of this [...] de Phone Number [facility] [address] [place] [address] documented in this encounter Visit Diagnoses Not on filedocumented in this encounter Care Teams Presbyterian Clergy Relationship Specialty Start Date End Date Corin Skinner MD [address] [place] [phone] PCP - General 10/24/08 08/21/09 documented as of this encounter
--- OUTSIDE RECORDS SUMMARY | 2024-08-03 13:51 | XMS_ITS | Encounter Summary ---
Author Organization [facility] Address [address] [place] [address] Care Team Providers Care Advertisement Distributor Name Role Phone Corin Skinner MD Primary Care Provider +[phone]- [phone] Encounter Details Date Type Department Care Team (Late st Contact Info) Description 10/21/2008 Before PRISM Converted Visit (Maple) [facility] - Maple conversion [address] [place] [address] Emergency, MD Diya Social History Tobacco Use [...] [facility] - [facility] [address] [place] [address] Wilder Zaidi, DO [address] [facility] [address] [place] [address] documented as of this encounter [...] ORDER LYNDSEY Final Result Performing Organization Address City/State/[facility] Co de Phone Number [facility] [address] [place] [address] documented in this encounter Visit Diagnoses Not on filedocumented in this encounter Care Teams Advertisement Distributor Relationship Specialty Start Date End Date Corin Skinner MD [address] [place] [phone] PCP - General 10/24/08 08/21/09 documented as of this encounter
--- OUTSIDE RECORDS SUMMARY | 2024-08-03 13:51 | XMS_ITS | Encounter Summary ---
Author Organization [facility] Address [address] [place] [address] Care Team Providers Care Sheriff Name Role Phone Corin Skinner MD Primary Care Provider Encounter Details Date Type Department Care Team (Late st Contact Info) Description 10/21/2008 Before PRISM Converted Visit (Maple) [facility] - Maple conversion [address] [place], [place] [phone] Christopher Ga MD [address] [place] [phone] Social History Tobacco Use Types Packs/Day [...] EDT Office Visit [facility] Endocrinology - [facility] [place] [facility] [address] [place] [address] Wilder Zaidi DO [address] [facility] [address] [place] [address] documented as of this encounter Procedures Procedure Name Priority Date/Time Associated Diagnosis Comments GLUCOSE, GLUCOMETER Routine 10/21/2008 1 9:22 EDT documented in this encounter Results * GLUCOSE, GLUCOMETER (10/21/2008 19:22 EDT) Glucose, Fingerstick 89 70 - 100 mg/dl [facility] Carbon Capture Power Plant Manager ID [id number] Test Performed by Nursing Services [facility] 10/21/2008 19:2 2 EDT 10/21/2008 23:29 EDT us Christopher Ga MD CHEMISTRY & BLOOD GAS ORDER LYNDSEY Final Result [facility] [address] [place] [address] documented in this encounter Visit Diagnoses Not on filedocumented in this encounter Care Teams Sheriff Relationship Specialty Start Date End Date Corin Skinner MD [address] [place] [phone] PCP - General 10/24/08 08/21/09 documented as of this encounter
--- OUTSIDE RECORDS SUMMARY | 2024-08-03 13:51 | XMS_ITS | Encounter Summary ---
Author Organization [facility] Address [address] [place] [address] Care Team Providers Care Applied Research Director Name Role Phone Corin Skinner MD Primary Care Provider +[phone]- [phone] Encounter Details Date Type Department Care Team (Late st Contact Info) Description 10/21/2008 Before PRISM Converted Visit (Maple) [facility] - Maple conversion [address] [place] [address] Emergency, MD Diya Social History Tobacco Use [...] Visit [facility] Endocrinology - [facility] [address] [place] [address] Wilder Zaidi, DO [address] [facility] [address] [place] [address] documented as of this [...] ORDER LYNDSEY Final Result Performing Organization Address City/State/[facility] Co de Phone Number [facility] [address] [place] [address] documented in this encounter Visit Diagnoses Not on filedocumented in this encounter Care Teams Applied Research Director Relationship Specialty Start Date End Date Corin Skinner MD [address] [place] [phone] PCP - General 10/24/08 08/21/09 documented as of this encounter
--- OUTSIDE RECORDS SUMMARY | 2024-08-03 13:51 | XMS_ITS | Encounter Summary ---
Author Organization [facility] Address [address] [place] [address] Care Team Providers Care Multifocal Button Grinder Name Role Phone Unavailable Primary Care Provider Unavailabl e Encounter Details Date Type Department Care Team (Late st Contact Info) Description 08/13/2008 14:44 EST - 08/14/2008 11:59 EST Hospital Encounter [facility] [address] [place] [address] Summer Parr MD [address] [facility], [address] [phone] Slava Pineda MD Discharge Disposition: [...] 12/14/2008 0820 EDT HISS DISCHARGE SUMMARY ADDRESS: [address] [place] [address] PHONE: [phone] ATTENDING PHYSICIAN: SUMMER PARR MD ADDRESS: [place] [address] [address] [place] [address] PHONE: [phone] REFERRING PHYSICIAN: ANCELMO MICHAEL MD ADDR[facility] [address] [place] [address] PHONE: [phone] ADMISSION DATE: 08/13/08 SERVICE: PED. MEDICINE TRANSFER TO IP: DISCHARGE DATE: 08/14/08 SERVICE: PED. 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 CONDITION AT DISCHARGE: Stable DISPOSITION AT DISCHARGE: Home without home health services - Nursing, PT, OT, DENTAL INSURANCE COORDINATOR ALLERGIES: The following allergies were reported by [...] 9) POTASSIUM CHLORIDE / (kcl ext-rel tab (skilled nursing)) 30MEQ EXTENDED RELEASE TABLET, 3 TIMES A DAY, BY MOUTH MEDICATIONS YOU WERE TAKING PRIOR TO ADMISSION THAT SHOULD BE STOPPED: NONE HERBAL REMEDIES, NUTRITIONAL SUPPLEMENTS, AND [id number] MEDICATIONS that have not been prescribed by a physician may have significant adverse side effect or may interfere with the medications that have been prescribed for you. If you are taking herbal remedies, nutritional supplements, or [id number] medications you are strongly encouraged to discontinue [...] JOHAN PARIKH MD P - ZOHDocument ID: [id number] documented in this encounter Discharge Disposition Disposition Code Departure Means Destination Home or Self Care documented in this encounter Plan of Treatment Upcoming Encounters Date Type Department Care Team (Late st Contact Info) Description 10/01/2024 13:40 EDT Office Visit [facility] Endocrinology - [place] [address] [place], [place] [id number] Wilder Zaidi, DO [address] [place] [address] documented as of this encounter [...] ORDERABLE S Final Result Performing Organization Address [facility] de Phone Number [facility] [address] [place] [address] * BUN (08/14/2008 6:00 EST) BUN 14 10 - 26 mg/dl [facility] Comment:Heparinized plasma. 08/14/2008 6:00 EST 08/14/2008 9:43 EST Summer Parr MD CHEMISTRY & BLOOD GAS ORDERABLE S Final Result Performing Organization Address [facility] Co de Phone Number [facility] [address] [place] [address] * (ABNORMAL) ELECTROLYTES (08/14/2008 6:00 EST) Sodium [...] S Final Result [facility] [address] [place] [address] documented in this encounter Visit Diagnoses Not on filedocumented in this encounter
--- OUTSIDE RECORDS SUMMARY | 2024-08-03 13:51 | XMS_ITS | Encounter Summary ---
Author Organization [facility] Address [address] [place] [address] Care Team Providers Care Mangle Press Catcher Name Role Phone Corin Skinner MD Primary Care Provider Encounter Details Date Type Department Care Team (Late st Contact Info) Description 10/21/2008 Before PRISM Converted Visit (Maple) [facility] - Maple conversion [address] [place], [place] [address] Christopher Ga MD [address] [place] [phone] Social History Tobacco Use Types Packs/Day [...] Office Visit [facility] Endocrinology - [facility] [address] [place] [address] Wilder Zaidi DO [address] [facility] [address] [place] [address] documented as of this encounter Procedures Procedure Name Priority Date/Time Associated Diagnosis Comments GLUCOSE, GLUCOMETER Routine 10/21/2008 2 2:27 EDT documented in this encounter Results * (ABNORMAL) GLUCOSE, GLUCOMETER (10/21/2008 22:27 EDT) Glucose, Fingerstick 103(H) 70 - 100 mg/dl [facility] Stone Fabricator ID [id number] Test Performed by Nursing Services [facility] 10/21/2008 22:2 7 EDT 10/21/2008 23:30 EDT us Christopher Ga MD CHEMISTRY & BLOOD GAS ORDER LYNDSEY Final Result [facility] [address] [place] [address] documented in this encounter Visit Diagnoses Not on filedocumented in this encounter Care Teams Mangle Press Catcher Relationship Specialty Start Date End Date Corin Skinner MD [address] [place] [phone] PCP - General 10/24/08 08/21/09 documented as of this encounter
--- OUTSIDE RECORDS SUMMARY | 2024-08-03 13:51 | XMS_ITS | Encounter Summary ---
Author Organization [facility] Address [address] [place] [address] Care Team Providers Care Kennel Attendant Name Role Phone Corin Skinner MD Primary Care Provider [phone]- [phone] Encounter Details Date Type Department Care Team (Late st Contact Info) Description 10/21/2008 Before PRISM Converted Visit (Maple) [facility] - Maple conversion [address] [place] [address] Emergency, MD Diya Social History Tobacco Use [...] Description 10/01/2024 13:40 EDT Office Visit [facility] Endocrinology - [facility] [address] [place] [address] Wilder Zaidi, DO 62 [facility] [address] [place] [address] documented as [...] ORDER LYNDSEY Final Result Performing Organization Address City/State/[facility] Co de Phone Number [facility] [address] [place] [address] documented in this encounter Visit Diagnoses Not on filedocumented in this encounter Care Teams Kennel Attendant Relationship Specialty Start Date End Date Corin Skinner MD [address] [place] [phone] PCP - General 10/24/08 08/21/09 documented as of this encounter
--- OUTSIDE RECORDS SUMMARY | 2024-08-03 13:51 | XMS_ITS | Encounter Summary ---
Author Organization [facility] Address [address] [place] [address] Care Team Providers Care Medical Physics Professor Name Role Phone Corin Skinner MD Primary Care Provider Encounter Details Date Type Department Care Team (Late st Contact Info) Description 10/21/2008 Before PRISM Converted Visit (Maple) [facility] - Maple conversion [address] [place], [place] [address] Christopher Ga MD [address] [place] [phone] Social History Tobacco Use Types Packs/Day [...] [facility] Endocrinology - [facility] [address] [place] [address] Wilder Zaidi DO 62 [facility] [address] [place] [address] documented as of this encounter Procedures Procedure Name Priority Date/Time Associated Diagnosis Comments GLUCOSE, GLUCOMETER Routine 10/21/2008 2 1:18 EDT documented in this encounter Results * GLUCOSE, GLUCOMETER (10/21/2008 21:18 EDT) Glucose, Fingerstick 95 70 - 100 mg/dl [facility] New Client Banking Services Clerk ID [id number] Test Performed by Nursing Services [facility] 10/21/2008 21:1 8 EDT 10/21/2008 23:29 EDT us Christopher Ga MD CHEMISTRY & BLOOD GAS ORDER LYNDSEY Final Result [facility] [address] [place] [address] documented in this encounter Visit Diagnoses Not on filedocumented in this encounter Care Teams Medical Physics Professor Relationship Specialty Start Date End Date Corin Skinner MD [address] [place] [phone] PCP - General 10/24/08 08/21/09 documented as of this encounter
--- OUTSIDE RECORDS SUMMARY | 2024-08-03 13:51 | XMS_ITS | Encounter Summary ---
Author Organization [facility] Address [address] [place] [address] Care Team Providers Care News Technical Director Name Role Phone Corin Skinner MD Primary Care Provider [phone] Encounter Details Date Type Department Care Team (Late st Contact Info) Description 10/21/2008 Before PRISM Converted Visit (Maple) [facility] - Maple conversion [address] [place], [place] [address] Christopher Ga MD [address] [place] [phone] Social History Tobacco Use Types Packs/Day [...] Office Visit [facility] Endocrinology - [facility] [address] [place] [address] Wilder Zaidi DO 62 [facility] [address] [place] [address] documented as of this encounter Procedures Procedure Name Priority Date/Time Associated Diagnosis Comments SODIUM, URINE RANDOM Routine 10/21/2008 21:00 EDT documented in this encounter Results * SODIUM, URINE RANDOM (10/21/2008 21:00 EDT) Sodium, Ur <5.0 mEq/L [facility] 10/21/2008 21:0 0 EDT 10/21/2008 21:16 EDT us Christopher Ga MD URINALYSIS ORDERABLES Final Result Performing Organization Address City/State/[facility] Co de Phone Number [facility] [address] [place] [address] documented in this encounter Visit Diagnoses Not on filedocumented in this encounter Care Teams News Technical Director Relationship Specialty Start Date End Date Corin Skinner MD [address] [place] [phone] PCP - General 10/24/08 08/21/09 documented as of this encounter
--- OUTSIDE RECORDS SUMMARY | 2024-08-03 13:51 | XMS_ITS | Encounter Summary ---
Author Organization [facility] Address [address] [place] [address] Care Team Providers Care Carpenter/Labor Name Role Phone Yan Demarco MD Primary Care Provider [phone] Corin Skinner MD Primary Care Provider [phone] Akil Serrano MD Primary Care Provider [phone] Yossi Torres MD Primary Care Provider [phone] Emilee Cody MD Primary Care Provider + Ren Vaz MD Primary Care Provider [phone] Encounter Details Date Type Department Care Team (Late st Contact Info) Description 10/21/2008 Before PRISM Converted Visit (Maple) [facility] - Maple conversion [address] [place] [address] Slava Pineda MD Social History Tobacco Use [...] Visit [facility] Endocrinology - [facility] [address] [place], [place] [phone] Wilder Zaidi, 62 [facility] [address] [place] [address] documented as of this encounter Procedures Procedure [...] on filedocumented in this encounter Care Teams Carpenter/Labor Relationship Specialty Start Date End Date Yan Demarco MD [address] [place] [phone] PCP - General 08/22/09 02/20/10 Corin Skinner MD [address] [place] [phone] PCP - General 10/24/08 08/21/09 Akil Serrano MD 74 [facility] [address] [place], [place] [address] PCP - General 02/21/10 04/16/11 Yossi Torres MD [address] [place] [phone] PCP - General 04/17/11 03/14/16 Emilee Cody MD [address] [place] [phone] PCP - General 03/15/16 09/29/18 Ren Vaz MD [address] [place] [phone] PCP - General 09/30/18 documented as of this encounter
--- OUTSIDE RECORDS SUMMARY | 2024-08-03 13:51 | XMS_ITS | Encounter Summary ---
Author Organization [facility] Address [address] [place] [address] Care Team Providers Care Mobile Paramedical Examiner Name Role Phone Corin Skinner MD Primary Care Provider Encounter Details Date Type Department Care Team (Late st Contact Info) Description 10/21/2008 Before PRISM Converted Visit (Maple) [facility] - Maple conversion [address] [place], [place] [address] Christopher Ga MD [address] [place] [phone] Social History Tobacco Use Types Packs/Day [...] Visit [facility] Endocrinology - [facility] [address] [place] [address] Wilder Zaidi DO 62 [facility] [address] [place] [address] documented as of this encounter [...] PF4 ORDERABLES Final Result Performing Organization Address City/State/[facility] Co de Phone Number [facility] [address] [place] [address] documented in this encounter Visit Diagnoses Not on filedocumented in this encounter Care Teams Mobile Paramedical Examiner Relationship Specialty Start Date End Date Corin Skinner MD [address] [place] [phone] PCP - General 10/24/08 08/21/09 documented as of this encounter
--- OUTSIDE RECORDS SUMMARY | 2024-08-03 13:51 | XMS_ITS | Encounter Summary ---
Author Organization [facility] Address [address] [place] [address] Care Team Providers Care Forestry Fire Aid Name Role Phone Corin Skinner MD Primary Care Provider +1- [phone] Encounter Details Date Type Department Care Team (Late st Contact Info) Description 10/21/2008 Before PRISM Converted Visit (Maple) [facility] - Maple conversion [address] [place], [place] [address] Christopher Ga MD [address] [place] [phone] Social History Tobacco Use Types Packs/Day [...] [facility] Endocrinology - [facility] [address] [place] [address] Wilder Zaidi DO 62 [facility] [address] [place] [address] documented as of this encounter Procedures Procedure Name Priority Date/Time Associated Diagnosis Comments OSMOLALITY, URINE Routine 10/21/2008 21: 00 EDT documented in this encounter Results * (ABNORMAL) OSMOLALITY, URINE (10/21/2008 21:00 EDT) Osmolality, Ur 106(L) 392 - 1090 MOS/KG [facility] 10/21/2008 21:0 0 EDT 10/21/2008 21:16 EDT us Christopher Ga MD URINALYSIS ORDERABLES Final Result Performing Organization Address City/State/[facility] Co de Phone Number [facility] [address] [place] [address] documented in this encounter Visit Diagnoses Not on filedocumented in this encounter Care Teams Forestry Fire Aid Relationship Specialty Start Date End Date Corin Skinner MD [address] [place] [phone] PCP - General 10/24/08 08/21/09 documented as of this encounter
--- OUTSIDE RECORDS SUMMARY | 2024-08-03 13:51 | XMS_ITS | Encounter Summary ---
Author Organization [facility] Address [address] [place] [address] Care Team Providers Care Construction Trades Teacher Name Role Phone Yan Demarco MD Primary Care Provider Corin Skinner MD Primary Care Provider [phone] Encounter Details Date Type Department Care Team (Late st Contact Info) Description 10/21/2008 Office Visit [facility] - Map conversion [address] [place] [address] Slava Pineda MD Social History Tobacco Use [...] 3 days of decreased MS. sent from [facility] after being found hyponatremic and hypothermic has [...] gm. Pt received stress dose steroid at [facility] (D10 at 60 cc/hr). . Critical care [...] Addenda for MIGUEL ANGEL BURGOS JR VisitID: [id number] Date: 10/21/2008 10/21/2008 14:[address] JUAREZ. PT COMING BY AMBULANCE FROM [facility] FOR ED EVAL. PAGE PED ON ARRIVAL. signed by Landy Garcia 10/21/2008 14:56) 10/21/2008 15:[address] ONTIVEROS. PT COMING FROM [facility]. HYPOTHERMIC R TEMP 87.4 HYPONAUTREMIC NA 120. [...] (unable to determine as pt unresponsive). Treatment COMPRESSOR STATION ENGINEER: (Solucortef 100mg IV). Arrived by EMS. Historian: EMS. (Pt presented to [facility] ED with hypotension/ hypothermia and unresponsive. Pt transfered to [facility] ED for pediatric/ neuro consult.). --1638 [...] morse catheter attached to bedside drainage bag (COMPRESSOR STATION ENGINEER). (Dr. Pineda at bedside to assess pt. [...] --1712 Philippe Healy R.N. (EKG performed by [facility], showed to Dr. Pineda.). --1713 Philippe Healy [...] X 8 cm irregular light brown bruise [id number] diameter darker brown bruise #3. (no standard) [...] (follow up phone call to Domonique at [facility] confirming that photographs have been taken and [...] Philippe Healy R.N.. Kaylie Thakur R.N., R.N., [facility] Locked/Released at 10/22/2008 7:44 by Anabelle Perez R.N. documented in this encounter Plan of Treatment Upcoming Encounters Date Type Department Care Team (Late st Contact Info) Description 10/01/2024 13:40 EDT Office Visit [facility] Endocrinology - [facility] [address] [place], [place] [phone] Wilder Zaidi, 62 [facility] [address] [place] [phone] documented as of this encounter Visit Diagnoses Not on filedocumented in this encounter Care Teams Construction Trades Teacher Relationship Specialty Start Date End Date Yan Demarco MD [address] [place] [phone] PCP - General 08/22/09 02/20/10 Corin Skinner MD [address] [place] [phone] PCP - General 10/24/08 08/21/09 documented as of this encounter
--- OUTSIDE RECORDS SUMMARY | 2024-08-03 13:51 | XMS_ITS | Encounter Summary ---
Author Organization [facility] Address [address] [place] [address] Care Team Providers Care Workforce Management Analyst Name Role Phone Corin Skinner MD Primary Care Provider [phone] Encounter Details Date Type Department Care Team (Late st Contact Info) Description 10/21/2008 Before PRISM Converted Visit (Maple) [facility] Adult Primary Care - [address] [phone] Unknown, Provider, Social History Tobacco Use Types [...] Office Visit [facility] Endocrinology - [address] [phone] Wilder Zaidi, DO 62 [facility] [address] [place] [address] documented as of this encounter Procedures Procedure Name Priority Date/Time Associated Diagnosis Comments GLUCOSE, GLUCOMETER Routine 10/21/2008 1 7:16 EDT documented in this encounter Results * (ABNORMAL) GLUCOSE, GLUCOMETER (10/21/2008 17:16 EDT) Glucose, Fingerstick 166(H) 70 - 100 mg/dl [facility] Natural Developer ID [id number] Test Performed by Nursing Services [facility] 10/21/2008 17:1 6 EDT 10/21/2008 17:33 EDT us Provider Unknown MD CHEMISTRY & BLOOD GAS ORDERA BLES Final Result Performing Organization Address City/State/[facility] Co de Phone Number [facility] [address] [place] [address] documented in this encounter Visit Diagnoses Not on filedocumented in this encounter Care Teams Workforce Management Analyst Relationship Specialty Start Date End Date Corin Skinner MD [address] [place] [phone] PCP - General 10/24/08 08/21/09 documented as of this encounter
--- OUTSIDE RECORDS SUMMARY | 2024-08-03 13:51 | XMS_ITS | Encounter Summary ---
Author Organization [facility] Address [address] [place] [address] Care Team Providers Care Funeral Director/Embalmer Name Role Phone Corin Skinner MD Primary Care Provider [phone]- [phone] Encounter Details Date Type Department Care Team (Late st Contact Info) Description 10/21/2008 Before PRISM Converted Visit (Maple) [facility] - Maple conversion [address] [place], [place] [address] Christopher Ga MD [address] [place] [phone] Social History Tobacco Use Types Packs/Day [...] [facility] Endocrinology - [facility] [address] [place] [address] Wilder Zaidi DO 62 [facility] [address] [place] [address] documented as of this [...] LYNDSEY Final Result [facility] [address] [place] [address] documented in this encounter Visit Diagnoses Not on filedocumented in this encounter Care Teams Funeral Director/Embalmer Relationship Specialty Start Date End Date Corin Skinner MD [address] [place] [phone] PCP - General 10/24/08 08/21/09 documented as of this encounter
--- OUTSIDE RECORDS SUMMARY | 2024-08-03 13:51 | XMS_ITS | Encounter Summary ---
Author Organization [facility] Address [address] [place] [address] Care Team Providers Care Asbestos Siding Installer Name Role Phone Corin Skinner MD Primary Care Provider [phone]- [phone] Encounter Details Date Type Department Care Team (Late st Contact Info) Description 10/21/2008 Before PRISM Converted Visit (Maple) [facility] - Maple conversion [address] [place], [place] [address] Christopher Ga MD [address] [place] [phone] Social History Tobacco Use Types Packs/Day [...] Visit [facility] Endocrinology - [facility] [address] [place] [address] Wilder Zaidi DO 62 [facility] [address] [place] [address] documented as of this [...] LYNDSEY Final Result [facility] [address] [place] [address] documented in this encounter Visit Diagnoses Not on filedocumented in this encounter Care Teams Asbestos Siding Installer Relationship Specialty Start Date End Date Corin Skinner MD [address] [place] [phone] PCP - General 10/24/08 08/21/09 documented as of this encounter
--- OUTSIDE RECORDS SUMMARY | 2024-08-03 13:51 | XMS_ITS | Encounter Summary ---
Author Organization [facility] Address [address] [place] [address] Care Team Providers Care Bee Worker Name Role Phone Corin Skinner MD Primary Care Provider [phone]- [phone] Encounter Details Date Type Department Care Team (Late st Contact Info) Description 10/21/2008 Before PRISM Converted Visit (Maple) [facility] - Maple conversion [address] [place] [address] Emergency, MD Diya Social History Tobacco Use [...] EDT Office Visit [facility] End[facility]ology - [facility] [address] [place] [address] Wilder Zaiid, DO 62 [facility] [address] [place] [address] documented as of this encounter [...] de Phone Number [facility] [address] [place] [address] documented in this encounter Visit Diagnoses Not on filedocumented in this encounter Care Teams Bee Worker Relationship Specialty Start Date End Date Corin Skinner MD [address] [place] [phone] PCP - General 10/24/08 08/21/09 documented as of this encounter
--- OUTSIDE RECORDS SUMMARY | 2024-08-03 13:51 | XMS_ITS | Encounter Summary ---
Author Organization [facility] Address [address] [place] [address] Care Team Providers Care Asp Net Developer Name Role Phone Yan Demarco MD Primary Care Provider [phone] Corin Skinner MD Primary Care Provider [phone] Akil Serrano MD Primary Care Provider [phone] Yossi oTrres MD Primary Care Provider [phone] Emilee Cody MD Primary Care Provider + Ren Vaz MD Primary Care Provider [phone] Encounter Details Date Type Department Care Team (Late st Contact Info) Description 10/22/2008 Before PRISM Converted Visit (Maple) [facility] - Maple conversion [address] [place] [address] Christopher Ga MD [address] [place] [phone] Social History Tobacco Use Types Packs/Day [...] Office Visit [facility] Endocrinology - [address] [phone] Wilder Zaidi, DO 62 [facility] [address] [place] [address] documented as of this encounter [...] findings. Procedure Note Yossi Valladares / Sukhi Mneard MD - 11/01/2008 RLE with significant, TTP [...] on filedocumented in this encounter Care Teams Asp Net Developer Relationship Specialty Start Date End Date Yan Demarco MD [address] [place] [phone] PCP - General 08/22/09 02/20/10 Corin Skinner MD [address] [place] [phone] PCP - General 10/24/08 08/21/09 Akil Serrano MD 74 [facility] [address] [place], [place] [address] PCP - General 02/21/10 04/16/11 Yossi Torres MD [address] [place] [phone] PCP - General 04/17/11 03/14/16 Emilee Cody MD [address] [place] [phone] PCP - General 03/15/16 09/29/18 Ren Vaz MD [address] [place] [phone] PCP - General 09/30/18 documented as of this encounter
--- OUTSIDE RECORDS SUMMARY | 2024-08-03 13:51 | XMS_ITS | Encounter Summary ---
Author Organization [facility] Address [address] [place] [address] Care Team Providers Care Supervisor Electronic Testing Name Role Phone Corin Skinner MD Primary Care Provider Encounter Details Date Type Department Care Team (Late st Contact Info) Description 10/21/2008 Before PRISM Converted Visit (Maple) [facility] - Maple conversion [address] [place], [place] [address] Christopher Ga MD [address] [place] [phone] Social History Tobacco Use Types Packs/Day [...] Office Visit [facility] Endocrinology - [facility] [address] [place] [address] Wilder Zaidi DO 62 [facility] [address] [place] [address] documented as of this encounter [...] URINALYSIS ORDERABLES Final Result Performing Organization Address City/State/[facility] Co de Phone Number [facility] [address] [place] [address] documented in this encounter Visit Diagnoses Not on filedocumented in this encounter Care Teams Supervisor Electronic Testing Relationship Specialty Start Date End Date Corin Skinner MD [address] [place] [phone] PCP - General 10/24/08 08/21/09 documented as of this encounter
--- OUTSIDE RECORDS SUMMARY | 2024-08-03 13:51 | XMS_ITS | Encounter Summary ---
Author Organization [facility] Address [address] [place] [address] Care Team Providers Care Wrecking Supervisor Name Role Phone Corin Skinner MD Primary Care Provider [phone] Encounter Details Date Type Department Care Team (Late st Contact Info) Description 10/21/2008 Before PRISM Converted Visit (Maple) [facility] - Maple conversion [address] [place], [place] [address] Christopher Ga MD [address] [place] [phone] Social History Tobacco Use Types Packs/Day [...] EDT Office Visit [facility] Endocrinology - [facility] [address] [place] [address] Wilder Zaidi DO 62 [facility] [address] [place] [address] documented as of this encounter [...] LYNDSEY Final Result [facility] [address] [place] [address] documented in this encounter Visit Diagnoses Not on filedocumented in this encounter Care Teams Wrecking Supervisor Relationship Specialty Start Date End Date Corin Skinner MD [address] [place] [phone] PCP - General 10/24/08 08/21/09 documented as of this encounter
--- OUTSIDE RECORDS SUMMARY | 2024-08-03 13:52 | XMS_ITS | Encounter Summary ---
Author Organization [facility] Address [address] [place] [address] Care Team Providers Care Bull Float Finisher Name Role Phone Corin Skinner MD Primary Care Provider [phone]- [phone] Encounter Details Date Type Department Care Team (Late st Contact Info) Description 07/11/2008 Before PRISM Converted Visit (Maple) [facility] - Maple conversion [address] [place] [address] Skyler Edwards [facility] [address] [place] [phone] Social History Tobacco Use Types Packs/Day Years [...] Yan Demarco M.D. [facility] [address] [place] [address], [address] [place] [address] Demarco, I had the pleasure [...] the family. They have hired a new STRUCTURAL ENGINEERING TECHNICIAN who is a male and are hoping [...] by the visiting nurse. Mother knows that [facility] has an order for these injections and so will call them to remind them of the importance of giving these doses consistently. 5. Growth hormone deficiency. iMguel Angel's parents are not interested in adult [...] Skyler Edwards MD Division of Pediatric Endocrinology [phone] - Skyler Edwards MD P - ROXI Job ID: [id number] Doc ID: [id number] cc: MD Yan Singh MD documented in this encounter Plan of Treatment Upcoming Encounters Date Type Department Care Team (Late st Contact Info) Description 10/01/2024 13:40 EDT Office Visit [facility] Endocrinology - [facility] [address] [place], [place] [phone] Wilder Zaidi, DO 62 [facility] [address] [place] [phone] documented as of this encounter Visit Diagnoses Not on filedocumented in this encounter Care Teams Bull Float Finisher Relationship Specialty Start Date End Date Corin Skinner MD [address] [place] [phone] PCP - General 10/24/08 08/21/09 documented as of this encounter
--- OUTSIDE RECORDS SUMMARY | 2024-08-03 13:52 | XMS_ITS | Encounter Summary ---
Author Organization [facility] Address [address] [place] [address] Care Team Providers Care Shim Plug Cutter Name Role Phone Unavailable Primary Care Provider Unavailabl e Encounter Details Date Type Department Care Team (Late st Contact Info) Description 07/21/2008 18:45 EST - 07/26/2008 11:59 EST Hospital Encounter [facility] [address] [place], [place] [address] Jodi Parr MD [address] [place] [phone] Skyler Quinteros MD [address] [phone] Discharge Disposition: Home-Health Care Svc Social History [...] EDT Office Visit [facility] Endocrinology - [address] [phone] Wilder Zaidi, [address] [place] [address] [place] [phone] documented as of this [...] GAS ORDERABLES Final Result Performing Organization Address [facility] de Phone Number [facility] [address] [place] [address] * (ABNORMAL) ELECTROLYTES (07/26/2008 8:00 EST) Sodium 150(H) 136 - 145 mEq/L [facility] Potassium 4.1 3.5 - 5.0 mEq/L [facility] Chloride 112(H) 96 - 110 mEq/L [facility] CO2 25 24 - 32 mEq/L [facility] 07/26/2008 8:00 EST 07/26/2008 8:46 EST Skyler Quinteros MD, MSc CHEMISTRY & BLOOD GAS ORDERABLES Final Result Performing Organization Address [facility] de Phone Number [facility] [address] [place] [address] * (ABNORMAL) ELECTROLYTES (07/25/2008 8:10 EST) Sodium 147(H) 136 - 145 mEq/L [facility] Potassium 3.8 3.5 - 5.0 mEq/L [facility] Chloride 110 96 - 110 mEq/L [facility] CO2 23(L) 24 - 32 mEq/L [facility] 07/25/2008 8:10 EST 07/25/2008 8:39 EST Skyler Quinteros MD MSc CHEMISTRY & BLOOD GAS ORDERABLES Final Result Performing Organization Address [facility] de Phone Number [facility] [address] [place] [address] * CALCIUM, IONIZED (07/24/2008 16:41 EST) Calcium, Ionized 1.27 1.12 - 1.32 mmol/L [facility] courier ID [id number] Test performed by Chemistry [facility] 07/24/2008 16:4 1 EST 07/24/2008 16:49 EST Skyler Quinteros MD MSc CHEMISTRY & BLOOD GAS ORDERABLES Final Result Performing Organization Address [facility] de Phone Number [facility] [address] [place] [address] * GLUCOSE, SERUM (07/24/2008 16:00 EST) Glucose, Serum 82 70 - 100 mg/dl [facility] 07/24/2008 16:0 0 EST 07/24/2008 16:36 EST Skyler Quinteros MD MSc CHEMISTRY & BLOOD GAS ORDERABLES Final Result Performing Organization Address [facility] Phone Number [facility] [address] [place] [address] * CALCIUM (07/24/2008 16:00 EST) Calcium 9.2 8.5 - 10.5 mg/dl [facility] Calculated Calcium 10.0 8.5 - 10.5 mg/dl [facility] 07/24/2008 16:0 0 EST 07/24/2008 16:36 EST Skyler Quinteros MD MSc CHEMISTRY & BLOOD GAS ORDERABLES Final Result Performing Organization Address [facility] Phone Number [facility] [address] [place] [address] * (ABNORMAL) ELECTROLYTES (07/24/2008 16:00 EST) Sodium 146(H) 136 - 145 mEq/L [facility] Potassium 4.5 3.5 - 5.0 mEq/L [facility] Chloride 108 96 - 110 mEq/L [facility] CO2 26 24 - 32 mEq/L [facility] 07/24/2008 16:0 0 EST 07/24/2008 16:36 EST Skyler Quinteros MD MSc CHEMISTRY & BLOOD GAS ORDERABLES Final Result Performing Organization Address [facility] de Phone Number [facility] [address] [place] [address] * CALCIUM IONIZED (07/24/2008 16:00 EST) Ionized Calcium Note Sample sent to Lab. [facility] 07/24/2008 16:0 0 EST 07/24/2008 16:36 EST Skyler Quinteros MD MSc CHEMISTRY & BLOOD GAS ORDERABLES Final Result Performing Organization Address [facility] de Phone Number [facility] [address] [place] [address] * (ABNORMAL) ELECTROLYTES (07/24/2008 8:00 EST) Sodium 147(H) 136 - 145 mEq/L [facility] Potassium 3.5 3.5 - 5.0 mEq/L [facility] Chloride 109 96 - 110 mEq/L [facility] CO2 21(L) 24 - 32 mEq/L [facility] 07/24/2008 8:00 EST 07/24/2008 8:28 EST Skyler Quinteros MD MSc CHEMISTRY & BLOOD GAS ORDERABLES Final Result Performing Organization Address [facility] de Phone Number [facility] [address] [place] [address] * WRIST 2 VIEWS (07/22/2008 15:15 EST) [...] ORDERABLES Final Result [facility] [address] [place] [address] * UA WITH MICROSCOPIC (07/22/2008 12:00 EST) Color, UA Yellow [facility] Clarity, UA Clear [facility] Glucose, UA Norm NORM [facility] Bilirubin, UA Neg NEG [facility] Ketones, UA Neg NEG [facility] Specific [place], Urine 1.010 1.005 - 1.02 [facility] [...] ORDERABLES Final Result [facility] [address] [place] [address] * WRIST 2 VIEWS (07/21/2008 20:20 EST) [...]
--- OUTSIDE RECORDS SUMMARY | 2024-08-03 13:52 | XMS_ITS | Encounter Summary ---
Author Organization [facility] Address [address] [place] [address] Care Team Providers Care Plate Hanger Name Role Phone Unavailable Primary Care Provider Unavailabl e Encounter Details Date Type Department Care Team (Late st Contact Info) Description 07/03/2008 16:20 EST - 07/05/2008 11:59 EST Hospital Encounter [facility] [address] [place] [address] Jodi Parr MD [address] [facility] [place] [address] [place] [phone] Arcadio Gamboa MD [address] [facility], [address] [place] [phone] Discharge Disposition: Home-Health Care Svc Social History [...] 12/13/2008 2321 EDT HISS DISCHARGE SUMMARY ADDRESS: [address] [place] [address] PHONE: [phone] ATTENDING PHYSICIAN: JODI PARR MD ADDRESS: [address] [place] [address] PHONE: [phone] REFERRING PHYSICIAN: DOCTOR MARGARITA MD ADDRESS: PHONE: [...] home health services - Nursing, PT, OT, PORTFOLIO ANALYST ALLERGIES: The following allergies were reported [...] 12) POTASSIUM CHLORIDE / (kcl ext-rel tab (custodial)) 20MEQ EXTENDED RELEASE TABLET, 3 TIMES A DAY, BY MOUTH MEDICATIONS YOU WERE TAKING PRIOR TO ADMISSION THAT SHOULD BE STOPPED: NONE HERBAL REMEDIES, NUTRITIONAL SUPPLEMENTS, AND SAIJ-SPF-[id number] MEDICATIONS that have not been prescribed by a physician may have significant adverse side effect or may interfere with the medications that have been prescribed for you. If you are taking herbal remedies, nutritional supplements, or kycr-ojv-cnqvvwv medications you are strongly encouraged to discontinue [...] status change was due to seizure or ACCOUNT DEVELOPMENT REPRESENTATIVE infection. Miguel Angel was continued on home [...] follow up with Dr. Edwards on 07/11 [facility]: Previously followed by: [facility] __ Initial call by: _Voice mail to Agnes on 07/04/08 _ AGENCY: [facility] [phone] fax [phone] cc: Doctor Demarco at [facility] END OF REPORT D: YAN KHAN MD P - ZOHDocument ID: [id number] documented in this encounter Discharge Disposition Disposition [...] Cheng MD P - MH Job ID: [id number] Document ID: [id number] cc: MD Yan Walker MD Christa M [...] status. I doubt this is related to ACCOUNT DEVELOPMENT REPRESENTATIVE infection or other systemic infection, especially considering [...] Lc Cheng MD P - Job ID: [id number] Document ID: [id number] cc: MD Corin Walker MD Christa M Zehle, MD documented in this encounter Plan of Treatment Upcoming Encounters Date Type Department Care Team (Late st Contact Info) Description 10/01/2024 13:40 EDT Office Visit [facility] Endocrinology - [facility] [address] [place] [address] Dejuan Wilder Valencia, DO [address] [facility] [address] [place] [address] documented as of this encounter [...] Final Result Performing Organization Address [facility] de Phone Number [facility] [address] [place] [address] * ELECTROLYTES (07/04/2008 8:15 EST) Sodium 144 136 - 145 mEq/L [facility] Potassium 3.8 3.5 - 5.0 mEq/L [facility] Chloride 107 96 - 110 mEq/L [facility] CO2 24 24 - 32 mEq/L [facility] 07/04/2008 8:15 EST 07/04/2008 8:44 EST us Jodi Parr MD CHEMISTRY & BLOOD GAS ORDERABLE S Final Result Performing Organization Address [facility] Phone Number [facility] [address] [place] [address] * (ABNORMAL) ELECTROLYTES (07/03/2008 20:00 EST) Sodium [...] Final Result Performing Organization Address [facility] de Phone Number [facility] [address] [place] [address] * CULTURE IF UA POSITIVE (07/03/2008 18:45 EST) Culture if Indicated Culture not indicated by urinalysis results. [facility] 07/03/2008 18:4 5 EST 07/03/2008 19:53 EST us Jodi Parr MD MICROBIOLOGY - GENERAL ORDERABL ES Final Result Performing Organization Address [facility] de Phone Number [facility] [address] [place] [address] * DRUG SCREEN 6 (07/03/2008 18:45 EST) Pathologist [facility] Amphetamine Screen, Urine Negative Screen Suitable for [...] Res ult Performing Organization Address [facility] de Phone Number [facility] [address] [place] [address] * UA REFLEX (07/03/2008 18:45 EST) Pathologist [facility] UA Billing Microscopic not indicated. [facility] 07/03/2008 18:4 5 EST 07/03/2008 19:53 EST Jodi Parr MD URINALYSIS ORDERABLES Final Res ult Performing Organization Address [facility] Co de Phone Number [facility] [address] [place] [address] * (ABNORMAL) URINALYSIS, CHEMICAL (07/03/2008 18:45 EST) Pathologist [facility] Color, UA Yellow [facility] Clarity, UA Clear [facility] Glucose, UA Norm NORM [facility] Bilirubin, UA Neg NEG [facility] Ketones, UA Neg NEG [facility] Specific [place], Urine <1.005(L) 1.005 - 1.02 [facility] [...] Res ult Performing Organization Address [facility] Co de Phone Number [facility] [address] [place] [address] * BACTERIAL CULTURE, BLOOD (07/03/2008 16:00 EST) Specimen Description Blood Right Groin [facility] Result No growth [facility] Report Status Final [id number] [facility] 07/03/2008 16:0 0 EST 07/03/2008 17:30 EST us Jodi Parr MD MICROBIOLOGY - GENERAL ORDERABL ES Final Result Performing Organization Address [facility] de [place] [address] * (ABNORMAL) BLOOD GAS, EG6 ISTAT (07/03/2008 [...] [facility] Sample Type ARTERIAL [facility] credit administrator ID [id number] Test Performed by Respiratory [facility] 07/03/2008 15:0 5 EST 07/04/2008 19:29 EST us Jodi Parr MD CHEMISTRY & BLOOD GAS ORDERABLE S Final Result [facility] [address] [place] [address] documented in this encounter Visit Diagnoses Not on filedocumented in this encounter
--- OUTSIDE RECORDS SUMMARY | 2024-08-03 13:52 | XMS_ITS | Encounter Summary ---
Author Organization [facility] Address [address] [place] [address] Care Team Providers Care Boat Driver Name Role Phone Unavailable Primary Care Provider Unavailabl e Encounter Details Date Type Department Care Team (Late st Contact Info) Description 06/11/2008 11:00 EST - 06/11/2008 11:59 EST Hospital Encounter [facility] [place] [address] [place] [address] [facility] [address] [place] [address] Discharge Disposition: Auto Discharge Social History Tobacco [...] Visit [facility] Endocrinology - [facility] [address] [place] [address] Wilder Zaidi, DO 62 [facility] [address] [place] [address] documented as of this encounter [...] PF4 ORDERABLES Final Result Performing Organization Address [facility] de Phone Number [facility] [address] [place] [address] * (ABNORMAL) PROTIME (07/03/2008 16:00 EST) Pro [...] PF4 ORDERABLES Final Result Performing Organization Address [facility] de Phone Number [facility] [address] [place] [address] * (ABNORMAL) BLOOD GAS, G3 ISTAT (07/03/2008 [...] LAB Sample Type NOT GIVEN [facility] director call center sales ID [id number] Test performed by Chemistry [facility] 07/03/2008 15:2 3 EST 07/03/2008 15:28 EST us Provider Unknown MD CHEMISTRY & BLOOD GAS ORDERA BLES Final Result Performing Organization Address [facility] Co de Phone Number [facility] [address] [place] [address] * (ABNORMAL) LACTIC ACID (07/03/2008 15:05 EST) Pathologist [facility] Lactic Acid 3.0(H) 0.7 - 2.1 mmol/L [facility] 07/03/2008 15:0 5 EST 07/03/2008 15:19 EST us Default Emergency CHEMISTRY & BLOOD GAS ORDER LYNDSEY Final Result Performing Organization Address [facility] de Phone Number [facility] [address] [place] [address] * (ABNORMAL) GLUCOSE, SERUM (07/03/2008 15:05 EST) Pathologist [facility] Glucose, Serum 69(L) 70 - 100 mg/dl [facility] Comment:Heparinized plasma. 07/03/2008 15:0 5 EST 07/03/2008 15:13 EST us Default Emergency CHEMISTRY & BLOOD GAS ORDER LYNDSEY Final Result Performing Organization Address [facility] de Phone Number [facility] [address] [place] [address] * CREATININE (07/03/2008 15:05 EST) Creatinine 0.80 0.7 - 1.5 mg/dl [facility] Comment:Heparinized plasma. GFR, Calculated >60 ml/min/1.7 3m2 [facility] Comment:Heparinized plasma. 07/03/2008 15:0 5 EST 07/03/2008 15:13 EST Default Emergency MD CHEMISTRY & BLOOD GAS ORDER LYNDSEY Final Result Performing Organization Address [facility] Phone Number [facility] [address] [place] [address] * BUN (07/03/2008 15:05 EST) BUN 14 10 - 26 mg/dl [facility] Comment:Heparinized plasma. 07/03/2008 15:0 5 EST 07/03/2008 15:13 EST Default Emergency MD CHEMISTRY & BLOOD GAS ORDER LYNDSEY Final Result Performing Organization Address [facility] Phone Number [facility] [address] [place] [address] * ELECTROLYTES (07/03/2008 15:05 EST) Sodium 145 [...] ORDER LYNDSEY Final Result Performing Organization Address [facility] de Phone Number [facility] [address] [place] [address] * (ABNORMAL) HEMAGRAM AND DIFFERENTIAL (07/03/2008 15:05 [...] Eosinophils 0.06 0.03 - 0.61 K/cmm [facility] ABS Basophils 0.00(L) 0.01 - 0.11 K/cmm [facility] Type of Diff: Automated [facility] 07/03/2008 15:0 5 EST 07/03/2008 15:13 EST us Default Emergency MD PACKAGES & DNA PROBE ORDERA BLES Final Result [facility] [address] [place] [address] * PORTABLE CHEST 1 VIEW (07/03/2008 14:52 [...] Note Leticia Solomon MD / Marlene Mensah, [facility] - 11/21/2008 Patient has cough, shortness [...] agree with the findings. Shola Wolf MD [facility]NOST[facility] Final Result * ELECTROLYTES (06/11/2008 11:11 EST) Sodium 140 136 - 145 mEq/L [facility] Potassium 4.1 3.5 - 5.0 mEq/L [facility] Chloride 100 96 - 110 mEq/L [facility] CO2 24 24 - 32 mEq/L [facility] 06/11/2008 11:1 1 EST 06/11/2008 11:13 EST Skyler Edwards [facility] CHEMISTRY & BL OOD GAS ORDERABLES Final Result [facility] [address] [place] [address] documented in this encounter Visit Diagnoses Not on filedocumented in this encounter
--- OUTSIDE RECORDS SUMMARY | 2024-08-03 13:52 | XMS_ITS | Encounter Summary ---
Author Organization [facility] Address [address] [place] [address] Care Team Providers Care Laundry Equipment Operator Name Role Phone Corin Skinner MD Primary Care Provider [phone]- [phone] Encounter Details Date Type Department Care Team (Late st Contact Info) Description 07/11/2008 Before PRISM Converted Visit (Maple) [facility] - Maple conversion [address] [place] [address] Lc Cheng MD 111 [facility], [address] [place] [address] Social History Tobacco Use Types [...] Edwards MD [facility] [address] [place] [address] Edwards; The father of 18-year-old [...] Lc Cheng MD - [facility] Job ID: [id number] Doc ID: [id number] cc: MD Skyler Singh MD documented in this encounter Plan of Treatment Upcoming Encounters Date Type Department Care Team (Late st Contact Info) Description 10/01/2024 13:40 EDT Office Visit [facility] Endocrinology - [facility] [address] [place] [address] Wilder Zaidi, DO 62 [facility] [address] [place] [address] documented as of this encounter Visit Diagnoses Not on filedocumented in this encounter Care Teams Laundry Equipment Operator Relationship Specialty Start Date End Date Corin Skinner MD [address] [place] [phone] PCP - General 10/24/08 08/21/09 documented as of this encounter
--- OUTSIDE RECORDS SUMMARY | 2024-08-03 13:52 | XMS_ITS | Encounter Summary ---
Author Organization [facility] Address [address] [place] [address] Care Team Providers Care Gun Fitter Name Role Phone Unavailable Primary Care Provider Unavailabl e Encounter Details Date Type Department Care Team (Late st Contact Info) Description 07/12/2008 10:23 EST - 07/12/2008 11:59 EST Hospital Encounter [facility] [address] [place] [address] [facility] [address] [place] [address] Discharge Disposition: Auto Discharge Social History Tobacco [...] Office Visit [facility] Endocrinology - [facility] [address] [place] [address] Wilder Zaidi, DO [address] [facility] [address] [place] [address] Pending Results Name Type Priority [...] PHONE RESULT Final Result Performing Organization Address [facility] Co de Phone Number [facility] [address] [place] [address] * HOLD PURPLE TOP (10/21/2008 17:54 EDT) Hold Purple Top EDTA for hematology will be discarded after 48 hours, differential not available after 12 hours. [facility] 10/21/2008 17:5 4 EDT 10/21/2008 17:54 EDT us Default Emergency MD LAB INFO SERVICE AND SUPPOR T & PHONE RESULT Final Result Performing Organization Address [facility] Co de Phone Number [facility] [address] [place] [address] * HOLD GREEN TOP (10/21/2008 17:54 EDT) Hold Green Top Hold for further testing. Specimen will be held for 5 days. [facility] 10/21/2008 17:5 4 EDT 10/21/2008 17:54 EDT us Default Emergency MD LAB INFO SERVICE AND SUPPOR T & PHONE RESULT Final Result Performing Organization Address [facility] Co de Phone Number [facility] [address] [place] [address] * HOLD BLUE TOP (10/21/2008 17:54 EDT) Hold Blue Top Sample for coagulation will be discarded after 4 hours [facility] 10/21/2008 17:5 4 EDT 10/21/2008 17:54 EDT us Default Emergency MD LAB INFO SERVICE AND SUPPOR T & PHONE RESULT Final Result Performing Organization Address [facility] de Phone Number [facility] [address] [place] [address] * HOLD GREEN TOP (08/13/2008 11:13 EST) Hold Green Top Hold for further testing. Specimen will be held for 5 days. [facility] 08/13/2008 11:1 3 EST 08/13/2008 12:58 EST us Default Emergency MD LAB INFO SERVICE AND SUPPOR T & PHONE RESULT Final Result Performing Organization Address [facility] de Phone Number [facility] [address] [place] [address] * HOLD BLUE TOP (08/13/2008 11:13 EST) Hold Blue Top Sample for coagulation will be discarded after 4 hours [facility] 08/13/2008 11:1 3 EST 08/13/2008 12:58 EST us Default Emergency MD LAB INFO SERVICE AND SUPPOR T & PHONE RESULT Final Result Performing Organization Address [facility] de Phone Number [facility] [address] [place] [address] * PHOSPHORUS (08/13/2008 11:13 EST) Phosphorus 4.4 2.5 - 4.5 mg/dl [facility] 08/13/2008 11:1 3 EST 08/13/2008 12:58 EST us Default Emergency MD CHEMISTRY & BLOOD GAS ORDER LYNDSEY Final Result Performing Organization Address [facility] de Phone Number [facility] [address] [place] [address] * MAGNESIUM (08/13/2008 11:13 EST) Magnesium 1.8 1.7 - 2.8 mg/dl [facility] 08/13/2008 11:1 3 EST 08/13/2008 12:58 EST us Default Emergency MD CHEMISTRY & BLOOD GAS ORDER LYNDSEY Final Result Performing Organization Address [facility] Phone Number [facility] [address] [place] [address] * LIPASE (08/13/2008 11:13 EST) Lipase 97 0 - 250 U/L [facility] 08/13/2008 11:1 3 EST 08/13/2008 12:58 EST us Default Emergency MD CHEMISTRY & BLOOD GAS ORDER LYNDSEY Final Result Performing Organization Address [facility] Phone Number [facility] [address] [place] [address] * (ABNORMAL) SCREENING GLUCOSE (08/13/2008 11:13 EST) Glucose, Screening 68(L) 70 - 100 mg/dl [facility] 08/13/2008 11:1 3 EST 08/13/2008 12:58 EST us Default Emergency MD CHEMISTRY & BLOOD GAS ORDER LYNDSEY Final Result Performing Organization Address [facility] Phone Number [facility] [address] [place] [address] * CREATININE (08/13/2008 11:13 EST) Creatinine 0.90 0.7 - 1.5 mg/dl [facility] GFR, Calculated >60 ml/min/1.7 3m2 [facility] 08/13/2008 11:1 3 EST 08/13/2008 12:58 EST us Default Emergency MD CHEMISTRY & BLOOD GAS ORDER LYNDSEY Final Result Performing Organization Address [facility] Phone Number [facility] [address] [place] [address] * BUN (08/13/2008 11:13 EST) BUN 17 10 - 26 mg/dl [facility] 08/13/2008 11:1 3 EST 08/13/2008 12:58 EST us Default Emergency MD CHEMISTRY & BLOOD GAS ORDER LYNDSEY Final Result Performing Organization Address [facility] de Phone Number [facility] [address] [place] [address] * CALCIUM (08/13/2008 11:13 EST) Calcium 9.5 8.5 - 10.5 mg/dl [facility] Calculated Calcium 9.3 8.5 - 10.5 mg/dl [facility] 08/13/2008 11:1 3 EST 08/13/2008 12:58 EST us Default Emergency MD CHEMISTRY & BLOOD GAS ORDER LYNDSEY Final Result Performing Organization Address [facility] de Phone Number [facility] [address] [place] [address] * LIVER FUNCTION TESTS (08/13/2008 11:13 EST) [...] ORDER LYNDSEY Final Result Performing Organization Address [facility] Co de Phone Number [facility] [address] [place] [address] * (ABNORMAL) ELECTROLYTES (08/13/2008 11:13 EST) Pathologist [facility] Sodium 153(H) 136 - 145 mEq/L [facility] Potassium 4.3 3.5 - 5.0 mEq/L [facility] Chloride 113(H) 96 - 110 mEq/L [facility] CO2 26 24 - 32 mEq/L [facility] 08/13/2008 11:1 3 EST 08/13/2008 12:58 EST [facility] Emergency MD CHEMISTRY & BLOOD GAS ORDER LYNDSEY Final Result Performing Organization Address [facility] de Phone Number [facility] [address] [place] [address] * (ABNORMAL) HEMAGRAM AND DIFFERENTIAL (08/13/2008 11:13 EST) [facility] WBC 2.32(L) 4.0 - 10.4 K/cmm [...] ORDERA BLES Final Result Performing Organization Address [facility] Co de Phone Number [facility] [address] [place] [address] * (ABNORMAL) TESTOSTERONE (07/12/2008 10:44 EST) Testosterone, Total 28(L) 241 - 827 ng/dL [facility] 07/12/2008 10:4 4 EST 07/12/2008 11:37 EST Skyler Edwards [facility] CHEMISTRY & BL OOD GAS ORDERABLES Final Result Performing Organization Address [facility] Co de Phone Number [facility] [address] [place] [address] * T4 FREE (07/12/2008 10:44 EST) Free T4 1.7 0.8 - 1.8 ng/dL [facility] 07/12/2008 10:4 4 EST 07/12/2008 11:37 EST Skyler Edwards [facility] CHEMISTRY & BL OOD GAS ORDERABLES Final Result Performing Organization Address [facility] Co de Phone Number [facility] [address] [place] [address] * BASIC METABOLIC PANEL (07/12/2008 10:44 EST) [...] 4 EST 07/12/2008 11:37 EST Skyler Edwards [facility] CHEMISTRY & BL OOD GAS ORDERABLES Final Result Performing Organization Address City/[facility] Co de Phone Number [facility] [address] [place] [address] documented in this encounter Visit Diagnoses Not on filedocumented in this encounter
--- OUTSIDE RECORDS SUMMARY | 2024-08-03 13:52 | XMS_ITS | Encounter Summary ---
Author Organization [facility] Address [address] [place] [address] Care Team Providers Care Scientologist Name Role Phone Corin Skinner MD Primary Care Provider [phone] Encounter Details Date Type Department Care Team (Late st Contact Info) Description 07/03/2008 Office Visit [facility] [address] [place] [address] Arcadio Gamboa MD [address] [facility], [address] [place] [phone] Social History Tobacco Use Types Packs/Day Years [...] Addenda for MIGUEL ANGEL MASON JR VisitID: [id number] Date: 07/03/2008 07/03/2008 12:16 DR. MACKYA PT TO ED FOR EVAL. CC: ? [...] --1527 Lucille Carlson R.N. (Paediatric Residents and Board Mixer Tender at bedside). --1528 Lucille Cralson R.N. 16 fr morse catheter placed using sterile technique and attached to bedside drainage bag, with return of yellow-colored clear urine. The patient tolerated procedure well (inserted by Paediatric Resident Judy Clarke). --1537 Lucille Carlson R.N. (Patient appears more responsive). --1538 Lucille Carlson R.N. Patient transported [facility] by stretcher with [employer]. --1613 Lucille Carlson R.N. VANCOMYCIN 1 gram [...] IV access in left inner wrist by BUSINESS TAXES SPECIALIST). --151 Lucille Carlson R.N. IV Site #2. IV access: left foot. IV started in ED; (22g IV access by BUSINESS TAXES SPECIALIST). --1522 Lucille Carlson R.N. Blood samples drawn. [...] was given (Kp). Transported via stretcher by [employer] (NS running STAT, 1gm Vancomycin running via [...] Visit [facility] Endocrinology - [facility] [address] [place], [place] [id number] Wilder Zaidi, 62 [facility] [address] [place] [address] documented as of this encounter Visit Diagnoses Not on filedocumented in this encounter Care Teams Scientologist Relationship Specialty Start Date End Date Corin Skinner MD [address] [place] [phone] PCP - General 10/24/08 08/21/09 documented as of this encounter
--- OUTSIDE RECORDS SUMMARY | 2024-08-03 13:52 | XMS_ITS | Encounter Summary ---
Author Organization [facility] Address [address] [place] [address] Care Team Providers Care Lieutenant Colonel Name Role Phone Unavailable Primary Care Provider Unavailabl e Encounter Details Date Type Department Care Team (Late st Contact Info) Description 07/11/2008 10:40 EST Hospital Encounter [facility] [address] [place] [address] Skyler Edwards, [facility] [address] [place] [phone] Lc Cheng MD [address] [facility] [place] [phone] Social History Tobacco Use Types Packs/Day Years [...] [facility] Endocr[facility]ology - [address] [address] Wilder Zaidi, DO [address] [address] documented as of this encounter Visit Diagnoses Not on filedocumented in this encounter
--- OUTSIDE RECORDS SUMMARY | 2024-08-03 13:54 | XMS_ITS | Encounter Summary ---
Author Organization [facility] Address [address] [place] [address] Care Team Providers Care Pre Planning Advisor Name Role Phone Unavailable Primary Care Provider Unavailabl e Encounter Details Date Type Department Care Team (Late st Contact Info) Description 04/11/2008 14:00 EDT - 04/13/2008 11:59 EDT Hospital Encounter [facility] [address] [place] [address] Skyler Quinteros MD [facility] [address] [facility], [address] [phone] Christopher Ga MD [address] [place] [phone] Discharge Disposition: Home-Health Care Svc Social [...] - 01/17/20092037 EDT HISS DISCHARGE SUMMARY ADDRESS: [address] [place] [address] PHONE: [phone] ATTENDING PHYSICIAN: SKYLER QUINTEROS MD ADDRESS: [place] [address] [address] [place] [address] PHONE: [phone] REFERRING PHYSICIAN: JOSEY SKINNER MD ADDRESS: [facility] [address] [place] [address] PHONE: [phone] ADMISSION DATE: 04/11/08 SERVICE: PED. MEDICINE TRANSFER TO IP: DISCHARGE DATE: 04/13/08 SERVICE: PED. 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 If you are taking herbal remedies, nutritional supplements, or bdae-gvi-efsqcus medications you are strongly encouraged to discontinue [...] lasting about 30s. He was taken to [facility] and was hypotensive and hypothermic. His vitals improved after he was bolused and given 100mg of Solucortef IV. He was also given IM ceftriaxone x1. Transferred to [facility]. 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 His seizure threashold was most likely lowered by a viral infection, disurbed sleep pattern, or other unknown entity. Started Keppra per Neuro recommendations. He has an appt to see a neurologist at [facility] in May. Disturbed sleep and and [...] lytes as an outpatient 04/14. Nutrition: the petroleum production engineer were consulted regarding Miguel Angel's very restrictive calorie restriction and recommended a new diet plan of 1800 kcal/day and 75g protien. They are happy to see Miguel Angel with his parents as an outpatient at [facility] as they were unable to [...] with your new neurologist at [facility] Follow up with Dr. King in [place], endocrinology Follow up with Dr. Skinner at 3:30PM HOME HEALTH CARE REFERRAL SERVICES: Previously followed by: [facility] __ Initial call by: _Jazz Bush on 04/12/08_@ __:__ Spoke with: _Jyothi in intake [phone] fax [phone] The primary care physician has been notified of the home health referral and has given verbal permission for all orders and/or clarifications pursuant to this referral to be managed by the primary care physician's office. Marta Pisano ([employer]ilet [employer] Molder) to follow as outpt through [facility] office cc: Patient chart MD JOSEY SCHMITZ MD Dr. Larrow at [phone] Pediatric Neurology at [facility] END OF REPORT D: YAN KHAN MD P - ZOHDocument ID: [id number] documented in this encounter Discharge Disposition Disposition Code Departure Means Destination Home-Health Care [facility] documented in this encounter Consult Notes * [...] frustration with the care they received at [facility] but apparently had made a spontaneous [...] his early February admission here and at [facility]. There was no fever but [...] that there is a follow-up appointment at [facility] Neurology and perhaps that will [...] Lc Cheng MD P - Job ID: [id number] Document ID: [id number] cc: MD Yan Walker MD Paul Rosenau, MD documented in this encounter Plan of Treatment Upcoming Encounters Date Type Department Care Team (Late st Contact Info) Description 10/01/2024 13:40 EDT Office Visit [facility] Endocrinology - [place] [address] [place] [address] Dejuan Wilder Valencia, DO [address] [place] [address] documented as of this [...] GAS ORDERABLES Final Result Performing Organization Address [facility] de Phone Number [facility] [address] [place] [address] * (ABNORMAL) ELECTROLYTES (04/12/2008 18:38 EDT) Sodium [...] GAS ORDERABLES Final Result Performing Organization Address [facility] de Phone Number [facility] [address] [place] [address] * CREATININE (04/12/2008 10:29 EDT) Creatinine 0.60 0.6 - 1.2 mg/dl [facility] GFR, Calculated Age <18 ml/min/1.7 3m2 [facility] 04/12/2008 10:2 9 EDT 04/12/2008 10:30 EDT Skyler Quinteros MD MSc CHEMISTRY & BLOOD GAS ORDERABLES Final Result Performing Organization Address [facility] de Phone Number [facility] [address] [place] [address] * BUN (04/12/2008 10:29 EDT) BUN 13 8 - 21 mg/dl [facility] 04/12/2008 10:2 9 EDT 04/12/2008 10:30 EDT Skyler Quinteros MD MSc CHEMISTRY & BLOOD GAS ORDERABLES Final Result Performing Organization Address City/[facility] Co de Phone Number [facility] [address] [place] [address] * (ABNORMAL) ELECTROLYTES (04/12/2008 10:29 EDT) Sodium [...] Performing Organization Address [facility] de Phone Number [facility] [address] [place] [address] * (ABNORMAL) HEMAGRAM AND DIFFERENTIAL (04/12/2008 10:29 EDT) Pathologist [facility] WBC 3.12(L) 4.6 - 11.2 K/cmm [facility] [...] PROBE ORDERABLES Final Result Performing Organization Address [facility] de Phone Number [facility] [address] [place] [address] * CREATININE (04/11/2008 16:00 EDT) Pathologist [facility] Creatinine 0.81 0.6 - 1.2 mg/dl [facility] GFR, Calculated Age <18 ml/min/1.7 3m2 [facility] 04/11/2008 16:0 0 EDT 04/11/2008 17:27 EDT Skyler Quinteros MD MSc CHEMISTRY & BLOOD GAS ORDERABLES Final Result Performing Organization Address [facility] de Phone Number [facility] [address] [place] [address] * BUN (04/11/2008 16:00 EDT) BUN 17 8 - 21 mg/dl [facility] 04/11/2008 16:0 0 EDT 04/11/2008 17:27 EDT Skyler Quinteros MD MSc CHEMISTRY & BLOOD GAS ORDERABLES Final Result Performing Organization Address [facility] de Phone Number [facility] [address] [place] [address] * (ABNORMAL) ELECTROLYTES (04/11/2008 16:00 EDT) Sodium 130(L) 136 - 145 mEq/L [facility] Potassium 4.1 3.5 - 5.0 mEq/L [facility] Chloride 95(L) 96 - 110 mEq/L [facility] CO2 23(L) 24 - 32 mEq/L [facility] 04/11/2008 16:0 0 EDT 04/11/2008 17:27 EDT us Skyler Quinteros MD MSc CHEMISTRY & BLOOD GAS ORDERABLES Final Result [facility] [address] [place] [address] documented in this encounter Visit Diagnoses Not on filedocumented in this encounter
--- OUTSIDE RECORDS SUMMARY | 2024-08-03 13:54 | XMS_ITS | Encounter Summary ---
Author Organization [facility] Address [address] [place] [address] Care Team Providers Care Automatic Winder Operator Name Role Phone Unavailable Primary Care Provider Unavailabl e Encounter Details Date Type Department Care Team (Late st Contact Info) Description 05/08/2008 5:55 EST - 06/01/2008 11:59 EST Hospital Encounter [facility] [address] [place], [place] [address] Millicent Garcia MD [address] [place] [address] Jose Alejandro Castro MD Discharge [...] 01/15/2009 0552 EDT HISS DISCHARGE SUMMARY ADDRESS: [address] [place] [id number] PHONE: [phone] ATTENDING PHYSICIAN: MILLICENT GARCIA MD ADDRESS: [facility] [address] [place] [address] PHONE: [phone] REFERRING PHYSICIAN: ALANA MARTINEZ MD ADDRESS: [facility] [address] [place] [address] PHONE: [phone] ADMISSION DATE: 05/08/08 SERVICE: PED. MEDICINE TRANSFER TO IP: DISCHARGE DATE: 06/01/08 SERVICE: PED. MEDICINE CHIEF COMPLAINT / REASON FOR ADMISSION: Respiratory distress PRINCIPAL/FINAL DIAGNOSIS: RLL PNA SECONDARY/FINAL DIAGNOSIS: Central diabetes insipidus Developmental delay Cortical blindness Seizures Panhypopituitarism Left hemiparesis PRINCIPAL PROCEDURE: PICC line placement CONDITION AT DISCHARGE: Stable Improved DISPOSITION AT DISCHARGE: Home with home health services - Speech, PT, OT, SHED WORKERS SUPERVISOR-resume previous ALLERGIES: The following allergies were reported [...] STOPPED: NONE HERBAL REMEDIES, NUTRITIONAL SUPPLEMENTS, AND GZWX-PVA-UUTAJKB MEDICATIONS that have not been prescribed by a physician may have significant adverse side effect or may interfere with the medications that have been prescribed for you. If you are taking herbal remedies, nutritional supplements, or rwdz-oyd-xoetire medications you are strongly encouraged to discontinue [...] - Patient [facility] secondary to increased somnolence and ataxia [...] to Dr. Demarco or [facility]. If Na < 132 or Na > 142, or if K+ < 3.8, page Dr. NAVI Edwards (even if not direct service professional). - Check weight daily. 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 NAVI CASTILLO (Pedi Endo) Dr. Demarco (PCP) ADDENDUM: Additional medication: zonisamide (Zonegran) 50mg PO daily (for seizures) END OF REPORT D: ANATOLIY CHOUDHURY MD P - ZOHDocument ID: [id number] documented in this encounter Discharge Disposition Disposition Code Departure Means Destination [place] [facility] documented in this encounter Progress Notes * [...] history as below, who was transported from [place] with respiratory failure and pneumonia in the setting of two weeks of cough and congestion. At 0200 on the morning of admission, his stepmom noted his respiratory distress had acutely worsened and he was transported by EMS to [place]. There, he required bag mask ventilation, intubation and mechanical ventilation. He [facility] and [...] not tolerating p.o. of any consistency and LICENSED LAND SURVEYOR was consulted on May 12, 2008. Bedside [...] His parents had been restricting him to [id number] zurdo/day to maintain a weight of 160-170#. [...] stabilized on mechanical ventilation prior to transport andrewvined on the ventilator for two days. On [...] 200 mcg p.o. daily. Central diabetes insipidus. Migeul Angel was initially maintained on a DDAVP [...] from 12:15 to 1:15 with all of [place] care providers and family to discuss his disposition and coordination of care. DISPOSITION Transfer to [place] [address]. CONDITION AT DISCHARGE Stable. Supervising Physician Signed by Alanna Neil MD 05/30/2008 15:03 Zain Hdz MD Alanna Neil MD - Zain Hdz MD A - [facility] Job ID: [id number] Document ID: [id number] cc: MD Zain Walker, MD Alanna Bell MD Roger C Knakal, MD Daniel W Larrow, MD William V Raszka, MD Christopher Ga, MD Jodi Parr, MD Skyler Edwards MD * Lc Cheng MD - 05/12/2008 0000 EST INPATIENT PROGRESS NOTE Service Date: 05/12/2008 PT LOC: M003 This is an inpatient followup consultation at the request of Dr Alanna Neil for this 81-wqjt-eyumtpd complicated problems centering around earlier operative craniopharyngioma. 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 His examination [...] no definite evidence of a superimposed acquired SAND MOLDER injury ie hypoxic, ischemic or otherwise. I [...] Cheng MD P - [facility] Job ID: [id number] Document ID: [id number] cc: MD Jose Alejandro Walker MD Amelia Hopkins, MD Stewart [place], MD documented in this encounter Consult Notes [...] transsphenoidal resection and craniotomy. [facility]was [facility] from [place] on May 08, 2008, with respiratory failure [...] are doing to include PT, OT, and LICENSED LAND SURVEYOR. 2. Tobacco Weigher to clarify home disposition issues and assistance [...] Wicho Carlton MD P - Job ID: [id number] Document ID: [id number] cc: Alexis Ocampo III, MD Barry W [...] neurology resident, Dr. Carr. Miguel Angel is 59-ecfiz[age]qog and has a history of operated craniopharyngioma [...] here early Friday, May 08, 2008, via [facility]. He had mild hypotension, 82/54, with [...] his care and he was transferred to [facility], and, in the course of that [...] Lc Cheng MD P - Job ID: [id number] Document ID: [id number] cc: MD Jose Alejandro Walker MD Stewart [place], MD documented in this encounter Plan of Treatment Upcoming Encounters Date Type Department Care Team (Late st Contact Info) Description 10/01/2024 13:40 EDT Office Visit [facility] Endocrinology - [facility] [address] [place] [address] Wilder Zaidi, [address] [facility] [address] [place] [address] documented as of this encounter [...] ORDERABLE S Final Result Performing Organization Address [facility] Co de Phone Number [facility] [address] [place] [address] * CREATININE (06/01/2008 5:06 EST) Creatinine 0.71 0.6 - 1.2 mg/dl [facility] GFR, Calculated Age <18 ml/min/1.7 3m2 [facility] 06/01/2008 5:06 EST 06/01/2008 5:35 EST us Jodi Parr MD CHEMISTRY & BLOOD GAS ORDERABLE S Final Result Performing Organization Address [facility] Co de Phone Number [facility] [address] [place] [address] * BUN (06/01/2008 5:06 EST) BUN 16 8 - 21 mg/dl [facility] 06/01/2008 5:06 EST 06/01/2008 5:35 EST us Jodi Parr MD CHEMISTRY & BLOOD GAS ORDERABLE S Final Result Performing Organization Address [facility] de Phone Number [facility] [address] [place] [address] * (ABNORMAL) ELECTROLYTES (06/01/2008 5:06 EST) Sodium 138 136 - 145 mEq/L [facility] Potassium 4.0 3.5 - 5.0 mEq/L [facility] Chloride 103 96 - 110 mEq/L [facility] CO2 23(L) 24 - 32 mEq/L [facility] 06/01/2008 5:06 EST 06/01/2008 5:35 EST us Jodi Parr MD CHEMISTRY & BLOOD GAS ORDERABLE S Final Result Performing Organization Address [facility] de Phone Number [facility] [address] [place] [address] * ELECTROLYTES (05/31/2008 18:00 EST) Sodium 137 136 - 145 mEq/L [facility] Potassium 3.8 3.5 - 5.0 mEq/L [facility] Chloride 99 96 - 110 mEq/L [facility] CO2 24 24 - 32 mEq/L [facility] 05/31/2008 18:0 0 EST 05/31/2008 18:56 EST us Jodi Parr MD CHEMISTRY & BLOOD GAS ORDERABLE S Final Result Performing Organization Address [facility] Phone Number [facility] [address] [place] [address] * ELECTROLYTES (05/31/2008 12:20 EST) Sodium 136 136 - 145 mEq/L [facility] Potassium 3.5 3.5 - 5.0 mEq/L [facility] Chloride 97 96 - 110 mEq/L [facility] CO2 25 24 - 32 mEq/L [facility] 05/31/2008 12:2 0 EST 05/31/2008 12:32 EST us Jodi Parr MD CHEMISTRY & BLOOD GAS ORDERABLE S Final Result Performing Organization Address [facility] de Phone Number [facility] [address] [place] [address] * (ABNORMAL) GLUCOSE, SERUM (05/31/2008 6:00 EST) Glucose, Serum 67(L) 70 - 100 mg/dl [facility] 05/31/2008 6:00 EST 05/31/2008 6:24 EST us Jodi Parr MD CHEMISTRY & BLOOD GAS ORDERABLE S Final Result Performing Organization Address City/[facility]/ZIP Co de Phone Number [facility] [address] [place] [address] * CREATININE (05/31/2008 6:00 EST) Creatinine 0.70 0.6 - 1.2 mg/dl [facility] GFR, Calculated Age <18 ml/min/1.7 3m2 [facility] 05/31/2008 6:00 EST 05/31/2008 6:24 EST us Jodi Parr MD CHEMISTRY & BLOOD GAS ORDERABLE S Final Result Performing Organization Address [facility] Co de Phone Number [facility] [address] [place] [address] * BUN (05/31/2008 6:00 EST) BUN 18 8 - 21 mg/dl [facility] 05/31/2008 6:00 EST 05/31/2008 6:24 EST us Jodi Parr MD CHEMISTRY & BLOOD GAS ORDERABLE S Final Result Performing Organization Address [facility] Co de Phone Number [facility] [address] [place] [address] * (ABNORMAL) ELECTROLYTES (05/31/2008 6:00 EST) Sodium 135(L) 136 - 145 mEq/L [facility] Potassium 4.3 3.5 - 5.0 mEq/L [facility] Chloride 100 96 - 110 mEq/L [facility] CO2 22(L) 24 - 32 mEq/L [facility] 05/31/2008 6:00 EST 05/31/2008 6:24 EST us Jodi Parr MD CHEMISTRY & BLOOD GAS ORDERABLE S Final Result Performing Organization Address City/[facility]/ZIP Co de Phone Number [facility] [address] [place] [address] * (ABNORMAL) ELECTROLYTES (05/30/2008 18:00 EST) Sodium [...] ORDERABLE S Final Result Performing Organization Address [facility] de Phone Number [facility] [address] [place] [address] * ELECTROLYTES (05/30/2008 12:25 EST) Sodium 136 136 - 145 mEq/L [facility] Potassium 3.7 3.5 - 5.0 mEq/L [facility] Chloride 97 96 - 110 mEq/L [facility] CO2 25 24 - 32 mEq/L [facility] 05/30/2008 12:2 5 EST 05/30/2008 12:33 EST Jodi Parr MD CHEMISTRY & BLOOD GAS ORDERABLE S Final Result Performing Organization Address [facility] de Phone Number [facility] [address] [place] [address] * (ABNORMAL) GLUCOSE, SERUM (05/30/2008 5:10 EST) Glucose, Serum 63(L) 70 - 100 mg/dl [facility] 05/30/2008 5:10 EST 05/30/2008 5:32 EST Jodi Parr MD CHEMISTRY & BLOOD GAS ORDERABLE S Final Result Performing Organization Address [facility] Co de Phone Number [facility] [address] [place] [address] * CREATININE (05/30/2008 5:10 EST) Creatinine 0.70 0.6 - 1.2 mg/dl [facility] GFR, Calculated Age <18 ml/min/1.7 3m2 [facility] 05/30/2008 5:10 EST 05/30/2008 5:32 EST Jodi Parr MD CHEMISTRY & BLOOD GAS ORDERABLE S Final Result Performing Organization Address [facility] de Phone Number [facility] [address] [place] [address] * BUN (05/30/2008 5:10 EST) BUN 16 8 - 21 mg/dl [facility] 05/30/2008 5:10 EST 05/30/2008 5:32 EST Jodi Parr MD CHEMISTRY & BLOOD GAS ORDERABLE S Final Result Performing Organization Address [facility] de Phone Number [facility] [address] [place] [address] * (ABNORMAL) ELECTROLYTES (05/30/2008 5:10 EST) Sodium 132(L) 136 - 145 mEq/L [facility] Potassium 4.4 3.5 - 5.0 mEq/L [facility] Chloride 98 96 - 110 mEq/L [facility] CO2 25 24 - 32 mEq/L [facility] 05/30/2008 5:10 EST 05/30/2008 5:32 EST Jodi Parr MD CHEMISTRY & BLOOD GAS ORDERABLE S Final Result Performing Organization Address [facility] de Phone Number [facility] [address] [place] [address] * (ABNORMAL) ELECTROLYTES (05/29/2008 18:00 EST) Sodium [...] ORDERABLE S Final Result Performing Organization Address [facility] Phone Number [facility] [address] [place] [address] * (ABNORMAL) ELECTROLYTES (05/29/2008 12:32 EST) Sodium [...] ORDERABLE S Final Result Performing Organization Address [facility] Phone Number [facility] [address] [place] [address] * (ABNORMAL) GLUCOSE, SERUM (05/29/2008 6:55 EST) Glucose, Serum 62(L) 70 - 100 mg/dl [facility] 05/29/2008 6:55 EST 05/29/2008 7:36 EST Jose Alejandro Castro MD CHEMISTRY & BLOOD GAS ORDERABLE S Final Result Performing Organization Address [facility] Phone Number [facility] [address] [place] [address] * CREATININE (05/29/2008 6:55 EST) Creatinine 0.60 0.6 - 1.2 mg/dl [facility] GFR, Calculated Age <18 ml/min/1.7 3m2 [facility] 05/29/2008 6:55 EST 05/29/2008 7:36 EST Jose Alejandro Castro MD CHEMISTRY & BLOOD GAS ORDERABLE S Final Result Performing Organization Address [facility] Co de Phone Number [facility] [address] [place] [address] * BUN (05/29/2008 6:55 EST) BUN 16 8 - 21 mg/dl [facility] 05/29/2008 6:55 EST 05/29/2008 7:36 EST Jose Alejandro Castro MD CHEMISTRY & BLOOD GAS ORDERABLE S Final Result Performing Organization Address [facility] de Phone Number [facility] [address] [place] [address] * (ABNORMAL) ELECTROLYTES (05/29/2008 6:55 EST) Sodium 134(L) 136 - 145 mEq/L [facility] Potassium 4.0 3.5 - 5.0 mEq/L [facility] Chloride 99 96 - 110 mEq/L [facility] CO2 22(L) 24 - 32 mEq/L [facility] 05/29/2008 6:55 EST 05/29/2008 7:36 EST Jose Alejandro Castro MD CHEMISTRY & BLOOD GAS ORDERABLE S Final Result Performing Organization Address [facility] de Phone Number [facility] [address] [place] [address] * ELECTROLYTES (05/28/2008 19:00 EST) Sodium 136 136 - 145 mEq/L [facility] Potassium 4.2 3.5 - 5.0 mEq/L [facility] Chloride 98 96 - 110 mEq/L [facility] CO2 26 24 - 32 mEq/L [facility] 05/28/2008 19:0 0 EST 05/28/2008 19:12 EST Jose Alejandro Castro MD CHEMISTRY & BLOOD GAS ORDERABLE S Final Result Performing Organization Address [facility] Co de Phone Number [facility] [address] [place] [address] * (ABNORMAL) GLUCOSE, SERUM (05/28/2008 6:59 EST) Glucose, Serum 66(L) 70 - 100 mg/dl [facility] 05/28/2008 6:59 EST 05/28/2008 6:59 EST Jose Alejandro Castro MD CHEMISTRY & BLOOD GAS ORDERABLE S Final Result Performing Organization Address [facility] de Phone Number [facility] [address] [place] [address] * (ABNORMAL) CREATININE (05/28/2008 6:59 EST) Creatinine 0.50(L) 0.6 - 1.2 mg/dl [facility] GFR, Calculated Age <18 ml/min/1.7 3m2 [facility] 05/28/2008 6:59 EST 05/28/2008 6:59 EST Jose Alejandro Castro MD CHEMISTRY & BLOOD GAS ORDERABLE S Final Result Performing Organization Address [facility] de Phone Number [facility] [address] [place] [address] * BUN (05/28/2008 6:59 EST) BUN 15 8 - 21 mg/dl [facility] 05/28/2008 6:59 EST 05/28/2008 6:59 EST us Jose Alejandro Castro MD CHEMISTRY & BLOOD GAS ORDERABLE S Final Result Performing Organization Address [facility] Co de Phone Number [facility] [address] [place] [address] * (ABNORMAL) ELECTROLYTES (05/28/2008 6:59 EST) Sodium [...] ORDERABLE S Final Result Performing Organization Address [facility] Co de Phone Number [facility] [address] [place] [address] * (ABNORMAL) CREATININE (05/27/2008 19:07 EST) Creatinine 0.50(L) 0.6 - 1.2 mg/dl [facility] GFR, Calculated Age <18 ml/min/1.7 3m2 [facility] 05/27/2008 19:0 7 EST 05/27/2008 19:07 EST us Jose Alejandro Castro MD CHEMISTRY & BLOOD GAS ORDERABLE S Final Result Performing Organization Address [facility]/ZIP Co de Phone Number [facility] [address] [place] [address] * BUN (05/27/2008 19:07 EST) BUN 16 8 - 21 mg/dl [facility] 05/27/2008 19:0 7 EST 05/27/2008 19:07 EST us Jose Alejandro Castro MD CHEMISTRY & BLOOD GAS ORDERABLE S Final Result Performing Organization Address [facility]/ZIP Co de Phone Number [facility] [address] [place] [address] * TESTS ADDED BY PHONE (05/27/2008 19:07 EST) Tests to be added STAT BUN,CREAT [facility] Who Called DR ALDO [facility] Location Code M3 [facility] 05/27/2008 19:0 7 EST 05/27/2008 19:07 EST Jose Alejandro Castro MD CHEMISTRY & BLOOD GAS ORDERABLE S Final Result Performing Organization Address [facility] Co de Phone Number [facility] [address] [place] [address] * (ABNORMAL) ELECTROLYTES (05/27/2008 19:07 EST) Sodium [...] Performing Organization Address [facility] de Phone Number [facility] [address] [place] [address] * (ABNORMAL) GLUCOSE, GLUCOMETER (05/27/2008 16:21 EST) Glucose, Fingerstick 124(H) 70 - 100 mg/dl [facility] Database Management System Specialist ID [id number] Test Performed by Nursing Services [facility] 05/27/2008 16:2 1 EST 05/27/2008 23:27 EST Jose Alejandro Castro MD CHEMISTRY & BLOOD GAS ORDERABLE S Final Result Performing Organization Address [facility] de Phone Number [facility] [address] [place] [address] * (ABNORMAL) ELECTROLYTES (05/27/2008 16:21 EST) Sodium [...] ORDERABLE S Final Result Performing Organization Address [facility] de Phone Number [facility] [address] [place] [address] * GLUCOSE, GLUCOMETER (05/27/2008 12:26 EST) Glucose, Fingerstick 87 70 - 100 mg/dl [facility] Database Management System Specialist ID [id number] Test Performed by Nursing Services [facility] 05/27/2008 12:2 6 EST 05/27/2008 23:27 EST Jose Alejandro Castro MD CHEMISTRY & BLOOD GAS ORDERABLE S Final Result Performing Organization Address [facility] Phone Number [facility] [address] [place] [address] * BACTERIAL CULTURE, URINE (05/27/2008 12:04 EST) Specimen Description Urine [facility] Result No growth [facility] Report Status Final 05/28/2008 [facility] 05/27/2008 12:0 4 EST 05/27/2008 13:14 EST Jose Alejandro Castro MD MICROBIOLOGY - GENERAL ORDERABL ES Final Result Performing Organization Address [facility] de Phone Number [facility] [address] [place] [address] * (ABNORMAL) URINALYSIS, CHEMICAL (05/27/2008 12:04 EST) Color, UA Yellow [facility] Clarity, UA Clear [facility] Glucose, UA Norm NORM [facility] Bilirubin, UA Neg NEG [facility] Ketones, UA Neg NEG [facility] Specific [place], Urine >1.030(H) 1.005 - 1.02 [facility] [...] ORDERABLES Final Res ult Performing Organization Address [facility] Co de Phone Number [facility] [address] [place] [address] * URINE MICROSCOPIC (05/27/2008 12:04 EST) WBC, [...] ORDERABLES Final Res ult Performing Organization Address [facility] Co de Phone Number [facility] [address] [place] [address] * (ABNORMAL) ELECTROLYTES (05/27/2008 11:45 EST) Sodium [...] ORDERABLE S Final Result Performing Organization Address [facility] de Phone Number [facility] [address] [place] [address] * GLUCOSE, SERUM (05/27/2008 6:45 EST) Glucose, Serum 74 70 - 100 mg/dl [facility] 05/27/2008 6:45 EST 05/27/2008 6:55 EST Jose Alejandro Castro MD CHEMISTRY & BLOOD GAS ORDERABLE S Final Result Performing Organization Address [facility] Phone Number [facility] [address] [place] [address] * (ABNORMAL) ELECTROLYTES (05/27/2008 6:45 EST) Sodium [...] ORDERABLE S Final Result Performing Organization Address [facility] de Phone Number [facility] [address] [place] [address] * CREATININE (05/27/2008 3:00 EST) Creatinine 0.60 0.6 - 1.2 mg/dl [facility] GFR, Calculated Age <18 ml/min/1.7 3m2 [facility] 05/27/2008 3:00 EST 05/27/2008 3:06 EST Jose Alejandro Castro MD CHEMISTRY & BLOOD GAS ORDERABLE S Final Result Performing Organization Address [facility] de Phone Number [facility] [address] [place] [address] * (ABNORMAL) BUN (05/27/2008 3:00 EST) BUN 22(H) 8 - 21 mg/dl [facility] 05/27/2008 3:00 EST 05/27/2008 3:06 EST Jose Alejandro Castro MD CHEMISTRY & BLOOD GAS ORDERABLE S Final Result Performing Organization Address [facility] de Phone Number [facility] [address] [place] [address] * (ABNORMAL) ELECTROLYTES (05/27/2008 3:00 EST) Sodium 132(L) 136 - 145 mEq/L [facility] Potassium 4.1 3.5 - 5.0 mEq/L [facility] Chloride 98 96 - 110 mEq/L [facility] CO2 26 24 - 32 mEq/L [facility] 05/27/2008 3:00 EST 05/27/2008 3:06 EST Jose Alejandro Castro MD CHEMISTRY & BLOOD GAS ORDERABLE S Final Result Performing Organization Address [facility] de Phone Number [facility] [address] [place] [address] * (ABNORMAL) ELECTROLYTES (05/26/2008 23:04 EST) Sodium [...] ORDERABLE S Final Result Performing Organization Address [facility] de Phone Number [facility] [address] [place] [address] * ELECTROLYTES (05/26/2008 19:14 EST) Sodium 136 136 - 145 mEq/L [facility] Potassium 4.2 3.5 - 5.0 mEq/L [facility] Chloride 99 96 - 110 mEq/L [facility] CO2 25 24 - 32 mEq/L [facility] 05/26/2008 19:1 4 EST 05/26/2008 19:14 EST Jose Alejandro Castro MD CHEMISTRY & BLOOD GAS ORDERABLE S Final Result Performing Organization Address [facility] de Phone Number [facility] [address] [place] [address] * (ABNORMAL) ELECTROLYTES (05/26/2008 15:47 EST) Sodium [...] ORDERABLE S Final Result Performing Organization Address [facility] de Phone Number [facility] [address] [place] [address] * GLUCOSE, GLUCOMETER (05/26/2008 15:44 EST) Glucose, Fingerstick 98 70 - 100 mg/dl [facility] Database Management System Specialist ID [id number] Test Performed by Nursing Services [facility] 05/26/2008 15:4 4 EST 05/26/2008 23:27 EST Jose Alejandro Castro MD CHEMISTRY & BLOOD GAS ORDERABLE S Final Result Performing Organization Address [facility] Phone Number [facility] [address] [place] [address] * ELECTROLYTES (05/26/2008 11:50 EST) Sodium 136 136 - 145 mEq/L [facility] Potassium 4.4 3.5 - 5.0 mEq/L [facility] Chloride 100 96 - 110 mEq/L [facility] CO2 24 24 - 32 mEq/L [facility] 05/26/2008 11:5 0 EST 05/26/2008 11:50 EST Jose Alejandro Castro MD CHEMISTRY & BLOOD GAS ORDERABLE S Final Result Performing Organization Address [facility] Phone Number [facility] [address] [place] [address] * (ABNORMAL) GLUCOSE, GLUCOMETER (05/26/2008 11:39 EST) Glucose, Fingerstick 107(H) 70 - 100 mg/dl [facility] Database Management System Specialist ID [id number] Test Performed by Nursing Services [facility] 05/26/2008 11:3 9 EST 05/26/2008 23:27 EST Jose Alejandro Castro MD CHEMISTRY & BLOOD GAS ORDERABLE S Final Result Performing Organization Address [facility] Phone Number [facility] [address] [place] [address] * ELECTROLYTES (05/26/2008 7:09 EST) Sodium 138 136 - 145 mEq/L [facility] Potassium 4.5 3.5 - 5.0 mEq/L [facility] Chloride 102 96 - 110 mEq/L [facility] CO2 25 24 - 32 mEq/L [facility] 05/26/2008 7:09 EST 05/26/2008 7:09 EST Jose Alejandro Castro MD CHEMISTRY & BLOOD GAS ORDERABLE S Final Result [facility] [address] [place] [address] * GLUCOSE, SERUM (05/26/2008 2:58 EST) Glucose, Serum 79 70 - 100 mg/dl [facility] Comment:Slightly lipemic 05/26/2008 2:58 EST 05/26/2008 2:58 EST Jose Alejandro Castro MD CHEMISTRY & BLOOD GAS ORDERABLE S Final Result Performing Organization Address [facility]/ZIP Co de Phone Number [facility] [address] [place] [address] * CREATININE (05/26/2008 2:58 EST) Creatinine 0.70 0.6 - 1.2 mg/dl [facility] Comment:Slightly lipemic GFR, Calculated Age <18 Slightly lipemic ml/min/1. 73m2 [facility] 05/26/2008 2:58 EST 05/26/2008 2:58 EST Jose Alejandro Castro MD CHEMISTRY & BLOOD GAS ORDERABLE S Final Result Performing Organization Address City/[facility]/ZIP Co de Phone Number [facility] [address] [place] [address] * BUN (05/26/2008 2:58 EST) BUN 17 8 - 21 mg/dl [facility] Comment:Slightly lipemic 05/26/2008 2:58 EST 05/26/2008 2:58 EST Jose Alejandro Castro MD CHEMISTRY & BLOOD GAS ORDERABLE S Final Result [facility] [address] [place] [address] * ELECTROLYTES (05/26/2008 2:58 EST) Sodium 137 [...] ORDERABLE S Final Result Performing Organization Address [facility] de Phone Number [facility] [address] [place] [address] * ELECTROLYTES (05/26/2008 0:00 EST) Sodium 139 [...] ORDERABLE S Final Result Performing Organization Address [facility] de Phone Number [facility] [address] [place] [address] * (ABNORMAL) ELECTROLYTES (05/25/2008 19:59 EST) Sodium [...] ORDERABLE S Final Result Performing Organization Address [facility] de Phone Number [facility] [address] [place] [address] * ELECTROLYTES (05/25/2008 16:20 EST) Sodium 137 [...] ORDERABLE S Final Result Performing Organization Address [facility] de Phone Number [facility] [address] [place] [address] * ELECTROLYTES (05/25/2008 13:05 EST) Sodium 138 [...] ORDERABLE S Final Result Performing Organization Address [facility] de Phone Number [facility] [address] [place] [address] * GLUCOSE, GLUCOMETER (05/25/2008 13:00 EST) Glucose, Fingerstick 88 70 - 100 mg/dl [facility] Database Management System Specialist ID [id number] Test Performed by Nursing Services [facility] 05/25/2008 13:0 0 EST 05/25/2008 23:23 EST us Jose Alejandro Castro MD CHEMISTRY & BLOOD GAS ORDERABLE S Final Result Performing Organization Address [facility] Co de Phone Number [facility] [address] [place] [address] * MRSA MOLECULAR DETECTION (05/25/2008 12:40 EST) Specimen Description Tomás WILHELMTCHHILDA [facility] Result NEGATIVE for Methicillin Resistant Staphylococcus aureus DNA by PCR. [facility] Report Status Final 05/26/2008 [facility] 05/25/2008 12:4 0 EST 05/25/2008 14:30 EST Jose Alejandro Castro MD MICROBIOLOGY - GENERAL ORDERABL ES Final Result Performing Organization Address [facility] Co de Phone Number [facility] [address] [place] [address] * ELECTROLYTES (05/25/2008 10:00 EST) Sodium 139 136 - 145 mEq/L [facility] Potassium 4.5 3.5 - 5.0 mEq/L [facility] Chloride 101 96 - 110 mEq/L [facility] CO2 26 24 - 32 mEq/L [facility] 05/25/2008 10:0 0 EST 05/25/2008 10:00 EST Jose Alejandro Castro MD CHEMISTRY & BLOOD GAS ORDERABLE S Final Result Performing Organization Address [facility] de Phone Number [facility] [address] [place] [address] * (ABNORMAL) ELECTROLYTES (05/25/2008 5:52 EST) Sodium [...] ORDERABLE S Final Result Performing Organization Address [facility] Co de Phone Number [facility] [address] [place] [address] * GLUCOSE, SERUM (05/25/2008 2:54 EST) Glucose, Serum 75 70 - 100 mg/dl [facility] 05/25/2008 2:54 EST 05/25/2008 2:56 EST Jose Alejandro Castro MD CHEMISTRY & BLOOD GAS ORDERABLE S Final Result Performing Organization Address [facility] Co de Phone Number [facility] [address] [place] [address] * BUN (05/25/2008 2:54 EST) BUN 16 8 - 21 mg/dl [facility] 05/25/2008 2:54 EST 05/25/2008 2:56 EST Jose Alejandro Castro MD CHEMISTRY & BLOOD GAS ORDERABLE S Final Result Performing Organization Address [facility] Co de Phone Number [facility] [address] [place] [address] * (ABNORMAL) ELECTROLYTES (05/25/2008 2:54 EST) Sodium 132(L) 136 - 145 mEq/L [facility] Potassium 4.4 3.5 - 5.0 mEq/L [facility] Chloride 98 96 - 110 mEq/L [facility] CO2 25 24 - 32 mEq/L [facility] 05/25/2008 2:54 EST 05/25/2008 2:56 EST Jose Alejandro Castro MD CHEMISTRY & BLOOD GAS ORDERABLE S Final Result Performing Organization Address [facility] Co de Phone Number [facility] [address] [place] [address] * (ABNORMAL) ELECTROLYTES (05/24/2008 23:58 EST) Sodium [...] ORDERABLE S Final Result Performing Organization Address [facility] Co de Phone Number [facility] [address] [place] [address] * (ABNORMAL) ELECTROLYTES (05/24/2008 19:45 EST) Sodium [...] ORDERABLE S Final Result Performing Organization Address [facility] de Phone Number [facility] [address] [place] [address] * ELECTROLYTES (05/24/2008 17:36 EST) Sodium 136 136 - 145 mEq/L [facility] Potassium 4.4 3.5 - 5.0 mEq/L [facility] Chloride 99 96 - 110 mEq/L [facility] CO2 24 24 - 32 mEq/L [facility] 05/24/2008 17:3 6 EST 05/24/2008 17:37 EST Jose Alejandro Castro MD CHEMISTRY & BLOOD GAS ORDERABLE S Final Result Performing Organization Address [facility] Co de Phone Number [facility] [address] [place] [address] * ELECTROLYTES (05/24/2008 15:20 EST) Sodium 137 136 - 145 mEq/L [facility] Potassium 4.1 3.5 - 5.0 mEq/L [facility] Chloride 100 96 - 110 mEq/L [facility] CO2 25 24 - 32 mEq/L [facility] 05/24/2008 15:2 0 EST 05/24/2008 15:25 EST Jose Alejandro Castro MD CHEMISTRY & BLOOD GAS ORDERABLE S Final Result Performing Organization Address [facility] de Phone Number [facility] [address] [place] [address] * (ABNORMAL) ELECTROLYTES (05/24/2008 12:00 EST) Sodium [...] ORDERABLE S Final Result Performing Organization Address [facility] de Phone Number [facility] [address] [place] [address] * CREATININE (05/24/2008 9:47 EST) Creatinine 0.60 0.6 - 1.2 mg/dl [facility] GFR, Calculated Age <18 ml/min/1.7 3m2 [facility] 05/24/2008 9:47 EST 05/24/2008 9:47 EST us Jose Alejandro Castro MD CHEMISTRY & BLOOD GAS ORDERABLE S Final Result Performing Organization Address [facility] de Phone Number [facility] [address] [place] [address] * (ABNORMAL) ELECTROLYTES (05/24/2008 9:47 EST) Sodium 134(L) 136 - 145 mEq/L [facility] Potassium 4.5 3.5 - 5.0 mEq/L [facility] Chloride 96 96 - 110 mEq/L [facility] CO2 27 24 - 32 mEq/L [facility] 05/24/2008 9:47 EST 05/24/2008 9:47 EST Jose Alejandro Castro MD CHEMISTRY & BLOOD GAS ORDERABLE S Final Result Performing Organization Address [facility] Co de Phone Number [facility] [address] [place] [address] * (ABNORMAL) GLUCOSE, GLUCOMETER (05/24/2008 7:24 EST) Glucose, Fingerstick 67(L) 70 - 100 mg/dl [facility] Database Management [place] Specialist ID [id number] Test Performed by Nursing Services [facility] 05/24/2008 7:24 EST 05/24/2008 23:10 EST Jose Alejandro Castro MD CHEMISTRY & BLOOD GAS ORDERABLE S Final Result Performing Organization Address [facility] Co de Phone Number [facility] [address] [place] [address] * CREATININE (05/24/2008 6:05 EST) Creatinine 0.60 0.6 - 1.2 mg/dl [facility] GFR, Calculated Age <18 ml/min/1.7 3m2 [facility] 05/24/2008 6:05 EST 05/24/2008 6:11 EST us Jose Alejandro Castro MD CHEMISTRY & BLOOD GAS ORDERABLE S Final Result Performing Organization Address [facility] Co de Phone Number [facility] [address] [place] [address] * TESTS ADDED BY PHONE (05/24/2008 6:05 EST) Tests to be added STAT CREAT [facility] Who Called JOSELUIS Packer FOR DR TONIE [facility] Location Code [id number] [facility] 05/24/2008 6:05 EST 05/24/2008 6:11 EST us Jose Alejandro Castro MD CHEMISTRY & BLOOD GAS ORDERABLE S Final Result Performing Organization Address [facility] Co de Phone Number [facility] [address] [place] [address] * (ABNORMAL) GLUCOSE, SERUM (05/24/2008 6:05 EST) Glucose, Serum 66(L) 70 - 100 mg/dl [facility] 05/24/2008 6:05 EST 05/24/2008 6:11 EST us Jose Alejandro Castro MD CHEMISTRY & BLOOD GAS ORDERABLE S Final Result Performing Organization Address [facility] de Phone Number [facility] [address] [place] [address] * BUN (05/24/2008 6:05 EST) BUN 16 8 - 21 mg/dl [facility] 05/24/2008 6:05 EST 05/24/2008 6:11 EST us Jose Alejandro Castro MD CHEMISTRY & BLOOD GAS ORDERABLE S Final Result Performing Organization Address [facility] de Phone Number [facility] [address] [place] [address] * (ABNORMAL) ELECTROLYTES (05/24/2008 6:05 EST) Sodium [...] S Final Result [facility] [address] [place] [address] * (ABNORMAL) ELECTROLYTES (05/24/2008 3:20 EST) Sodium [...] ORDERABLE S Final Result Performing Organization Address [facility]/ZIP Co de Phone Number [facility] [address] [place] [address] * (ABNORMAL) GLUCOSE, GLUCOMETER (05/24/2008 0:07 EST) Glucose, Fingerstick 119(H) 70 - 100 mg/dl [facility] Database Management System Specialist ID [id number] Test Performed by Nursing Services [facility] 05/24/2008 0:07 EST 05/24/2008 23:10 EST Jose Alejandro Castro MD CHEMISTRY & BLOOD GAS ORDERABLE S Final Result Performing Organization Address [facility]/ZIP Co de Phone Number [facility] [address] [place] [address] * (ABNORMAL) ELECTROLYTES (05/24/2008 0:05 EST) Sodium 134(L) 136 - 145 mEq/L [facility] Comment:Slightly lipemic Potassium 4.6 3.5 - 5.0 mEq/L [facility] Comment:Slightly lipemic Chloride 99 96 - 110 mEq/L [facility] Comment:Slightly lipemic CO2 24 24 - 32 mEq/L [facility] Comment:Slightly lipemic 05/24/2008 0:05 EST 05/24/2008 0:17 EST Jose Alejandro Csatro MD CHEMISTRY & BLOOD GAS ORDERABLE S Final Result Performing Organization Address [facility] de Phone Number [facility] [address] [place] [address] * ELECTROLYTES (05/23/2008 21:00 EST) Sodium 138 136 - 145 mEq/L [facility] Potassium 3.8 3.5 - 5.0 mEq/L [facility] Chloride 99 96 - 110 mEq/L [facility] CO2 25 24 - 32 mEq/L [facility] 05/23/2008 21:0 0 EST 05/23/2008 21:07 EST Jose Alejandro Castro MD CHEMISTRY & BLOOD GAS ORDERABLE S Final Result Performing Organization Address [facility] Phone Number [facility] [address] [place] [address] * ELECTROLYTES (05/23/2008 18:24 EST) Sodium 137 136 - 145 mEq/L [facility] Potassium 4.9 3.5 - 5.0 mEq/L [facility] Chloride 99 96 - 110 mEq/L [facility] CO2 27 24 - 32 mEq/L [facility] 05/23/2008 18:2 4 EST 05/23/2008 18:24 EST Jose Alejandro Castro MD CHEMISTRY & BLOOD GAS ORDERABLE S Final Result Performing Organization Address [facility] de Phone Number [facility] [address] [place] [address] * ELECTROLYTES (05/23/2008 15:41 EST) Sodium 137 136 - 145 mEq/L [facility] Potassium 4.1 3.5 - 5.0 mEq/L [facility] Chloride 97 96 - 110 mEq/L [facility] CO2 26 24 - 32 mEq/L [facility] 05/23/2008 15:4 1 EST 05/23/2008 15:41 EST Jose Alejandro Castro MD CHEMISTRY & BLOOD GAS ORDERABLE S Final Result Performing Organization Address [facility] de Phone Number [facility] [address] [place] [address] * ELECTROLYTES (05/23/2008 11:58 EST) Sodium 137 136 - 145 mEq/L [facility] Potassium 3.6 3.5 - 5.0 mEq/L [facility] Chloride 99 96 - 110 mEq/L [facility] CO2 25 24 - 32 mEq/L [facility] 05/23/2008 11:5 8 EST 05/23/2008 11:58 EST Jose Alejandro Castro MD CHEMISTRY & BLOOD GAS ORDERABLE S Final Result Performing Organization Address [facility] de Phone Number [facility] [address] [place] [address] * ELECTROLYTES (05/23/2008 9:15 EST) Sodium 139 136 - 145 mEq/L [facility] Potassium 4.0 3.5 - 5.0 mEq/L [facility] Chloride 100 96 - 110 mEq/L [facility] CO2 26 24 - 32 mEq/L [facility] 05/23/2008 9:15 EST 05/23/2008 9:15 EST Jose Alejandro Castro MD CHEMISTRY & BLOOD GAS ORDERABLE S Final Result Performing Organization Address [facility] de Phone Number [facility] [address] [place] [address] * GLUCOSE, GLUCOMETER (05/23/2008 9:11 EST) Glucose, Fingerstick 90 70 - 100 mg/dl [facility] Database Management System Specialist ID [id number] Test Performed by Nursing Services [facility] 05/23/2008 9:11 EST 05/23/2008 23:07 EST Jose Alejandro Castro MD CHEMISTRY & BLOOD GAS ORDERABLE S Final Result Performing Organization Address [facility]/State/ZIP Co de Phone Number [facility] [address] [place] [address] * CREATININE (05/23/2008 6:00 EST) Creatinine 0.60 0.6 - 1.2 mg/dl [facility] GFR, Calculated Age <18 ml/min/1.7 3m2 [facility] 05/23/2008 6:00 EST 05/23/2008 6:11 EST Jose Alejandro Castro MD CHEMISTRY & BLOOD GAS ORDERABLE S Final Result Performing Organization Address [facility] Co de Phone Number [facility] [address] [place] [address] * BUN (05/23/2008 6:00 EST) BUN 13 8 - 21 mg/dl [facility] 05/23/2008 6:00 EST 05/23/2008 6:11 EST Jose Alejandro Castro MD CHEMISTRY & BLOOD GAS ORDERABLE S Final Result Performing Organization Address [facility] de Phone Number [facility] [address] [place] [address] * (ABNORMAL) ELECTROLYTES (05/23/2008 6:00 EST) Sodium 134(L) 136 - 145 mEq/L [facility] Potassium 4.4 3.5 - 5.0 mEq/L [facility] Chloride 99 96 - 110 mEq/L [facility] CO2 25 24 - 32 mEq/L [facility] 05/23/2008 6:00 EST 05/23/2008 6:11 EST Jose Alejandro Castro MD CHEMISTRY & BLOOD GAS ORDERABLE S Final Result Performing Organization Address [facility]/ZIP Co de Phone Number [facility] [address] [place] [address] * (ABNORMAL) GLUCOSE, GLUCOMETER (05/23/2008 3:59 EST) Glucose, Fingerstick 105(H) 70 - 100 mg/dl [facility] Database Management System Specialist ID [id number] Test Performed by Nursing Services [facility] 05/23/2008 3:59 EST 05/23/2008 23:07 EST Jose Alejandro Castro MD CHEMISTRY & BLOOD GAS ORDERABLE S Final Result Performing Organization Address [facility] Co de Phone Number [facility] [address] [place] [address] * GLUCOSE, SERUM (05/23/2008 3:00 EST) Glucose, Serum 76 70 - 100 mg/dl [facility] 05/23/2008 3:00 EST 05/23/2008 3:05 EST Jose Alejandro Castro MD CHEMISTRY & BLOOD GAS ORDERABLE S Final Result Performing Organization Address [facility] de Phone Number [facility] [address] [place] [address] * (ABNORMAL) ELECTROLYTES (05/23/2008 3:00 EST) Sodium 132(L) 136 - 145 mEq/L [facility] Potassium 4.2 3.5 - 5.0 mEq/L [facility] Chloride 99 96 - 110 mEq/L [facility] CO2 24 24 - 32 mEq/L [facility] 05/23/2008 3:00 EST 05/23/2008 3:05 EST Jose Alejandro Castro MD CHEMISTRY & BLOOD GAS ORDERABLE S Final Result Performing Organization Address [facility] de Phone Number [facility] [address] [place] [address] * (ABNORMAL) GLUCOSE, GLUCOMETER (05/23/2008 0:16 EST) Glucose, Fingerstick 104(H) 70 - 100 mg/dl [facility] Database Management System Specialist ID [id number] Test Performed by Nursing Services [facility] 05/23/2008 0:16 EST 05/23/2008 23:07 EST Jose Alejandro Castro MD CHEMISTRY & BLOOD GAS ORDERABLE S Final Result Performing Organization Address [facility] de Phone Number [facility] [address] [place] [address] * (ABNORMAL) ELECTROLYTES (05/23/2008 0:15 EST) Sodium 133(L) 136 - 145 mEq/L [facility] Potassium 4.1 3.5 - 5.0 mEq/L [facility] Chloride 95(L) 96 - 110 mEq/L [facility] CO2 26 24 - 32 mEq/L [facility] 05/23/2008 0:15 EST 05/23/2008 0:23 EST Jose Alejandro Castro MD CHEMISTRY & BLOOD GAS ORDERABLE S Final Result Performing Organization Address [facility] de Phone Number [facility] [address] [place] [address] * GLUCOSE, SERUM (05/22/2008 21:25 EST) Glucose, Serum 90 70 - 100 mg/dl [facility] 05/22/2008 21:2 5 EST 05/22/2008 21:32 EST Jose Alejandro Castro MD CHEMISTRY & BLOOD GAS ORDERABLE S Final Result Performing Organization Address [facility] de Phone Number [facility] [address] [place] [address] * (ABNORMAL) ELECTROLYTES (05/22/2008 21:25 EST) Sodium [...] ORDERABLE S Final Result Performing Organization Address [facility] Phone Number [facility] [address] [place] [address] * (ABNORMAL) ELECTROLYTES (05/22/2008 18:10 EST) Sodium [...] ORDERABLE S Final Result Performing Organization Address [facility] Phone Number [facility] [address] [place] [address] * (ABNORMAL) GLUCOSE, GLUCOMETER (05/22/2008 18:08 EST) Glucose, Fingerstick 101(H) 70 - 100 mg/dl [facility] Database Management System Specialist ID [id number] Test Performed by Nursing Services [facility] 05/22/2008 18:0 8 EST 05/22/2008 23:44 EST Jose Alejandro Castro MD CHEMISTRY & BLOOD GAS ORDERABLE S Final Result Performing Organization Address [facility] Phone Number [facility] [address] [place] [address] * (ABNORMAL) ELECTROLYTES (05/22/2008 14:22 EST) Sodium [...] ORDERABLE S Final Result Performing Organization Address [facility] de Phone Number [facility] [address] [place] [address] * (ABNORMAL) ELECTROLYTES (05/22/2008 10:11 EST) Sodium [...] ORDERABLE S Final Result Performing Organization Address [facility] de Phone Number [facility] [address] [place] [address] * ELECTROLYTES (05/22/2008 6:25 EST) Sodium 136 136 - 145 mEq/L [facility] Potassium 4.1 3.5 - 5.0 mEq/L [facility] Chloride 102 96 - 110 mEq/L [facility] CO2 25 24 - 32 mEq/L [facility] 05/22/2008 6:25 EST 05/22/2008 6:33 EST Jose Alejandro Castro MD CHEMISTRY & BLOOD GAS ORDERABLE S Final Result Performing Organization Address [facility] Co de Phone Number [facility] [address] [place] [address] * CREATININE (05/22/2008 3:15 EST) Creatinine 0.70 0.6 - 1.2 mg/dl [facility] GFR, Calculated Age <18 ml/min/1.7 3m2 [facility] 05/22/2008 3:15 EST 05/22/2008 3:20 EST Jose Alejandro Castro MD CHEMISTRY & BLOOD GAS ORDERABLE S Final Result Performing Organization Address [facility] de Phone Number [facility] [address] [place] [address] * BUN (05/22/2008 3:15 EST) BUN 15 8 - 21 mg/dl [facility] 05/22/2008 3:15 EST 05/22/2008 3:20 EST Jose Alejandro Castro MD CHEMISTRY & BLOOD GAS ORDERABLE S Final Result Performing Organization Address [facility] de Phone Number [facility] [address] [place] [address] * ELECTROLYTES (05/22/2008 3:15 EST) Sodium 137 136 - 145 mEq/L [facility] Potassium 4.2 3.5 - 5.0 mEq/L [facility] Chloride 103 96 - 110 mEq/L [facility] CO2 24 24 - 32 mEq/L [facility] 05/22/2008 3:15 EST 05/22/2008 3:20 EST Result [facility] Jose Alejandro Castro MD CHEMISTRY & BLOOD GAS ORDERABLE S Final Result Performing Organization Address [facility] Co de Phone Number [facility] [address] [place] [address] * GLUCOSE, GLUCOMETER (05/22/2008 3:14 EST) Glucose, Fingerstick 97 70 - 100 mg/dl [facility] Database Management System Specialist ID [id number] Test Performed by Nursing Services [facility] 05/22/2008 3:14 EST 05/22/2008 23:43 EST Jose Alejandro Castro MD CHEMISTRY & BLOOD GAS ORDERABLE S Final Result Performing Organization Address [facility] Co de Phone Number [facility] [address] [place] [address] * GLUCOSE, GLUCOMETER (05/21/2008 23:09 EST) Glucose, Fingerstick 82 70 - 100 mg/dl [facility] Database Management System Specialist ID [id number] Test Performed by Nursing Services [facility] 05/21/2008 23:0 9 EST 05/21/2008 23:11 EST Jose Alejandro Castro MD CHEMISTRY & BLOOD GAS ORDERABLE S Final Result Performing Organization Address [facility] de Phone Number [facility] [address] [place] [address] * ELECTROLYTES (05/21/2008 23:05 EST) Sodium 140 136 - 145 mEq/L [facility] Potassium 4.5 3.5 - 5.0 mEq/L [facility] Chloride 105 96 - 110 mEq/L [facility] CO2 24 24 - 32 mEq/L [facility] 05/21/2008 23:0 5 EST 05/21/2008 23:18 EST Jose Alejandro Castro MD CHEMISTRY & BLOOD GAS ORDERABLE S Final Result Performing Organization Address [facility] de Phone Number [facility] [address] [place] [address] * ELECTROLYTES (05/21/2008 19:02 EST) Sodium 141 136 - 145 mEq/L [facility] Potassium 4.1 3.5 - 5.0 mEq/L [facility] Chloride 103 96 - 110 mEq/L [facility] CO2 26 24 - 32 mEq/L [facility] 05/21/2008 19:0 2 EST 05/21/2008 19:04 EST Jose Alejandro Castro MD CHEMISTRY & BLOOD GAS ORDERABLE S Final Result Performing Organization Address [facility] de Phone Number [facility] [address] [place] [address] * ELECTROLYTES (05/21/2008 15:20 EST) Sodium 141 136 - 145 mEq/L [facility] Potassium 4.3 3.5 - 5.0 mEq/L [facility] Chloride 104 96 - 110 mEq/L [facility] CO2 28 24 - 32 mEq/L [facility] 05/21/2008 15:2 0 EST 05/21/2008 15:21 EST Jose Alejandro Castro MD CHEMISTRY & BLOOD GAS ORDERABLE S Final Result Performing Organization Address [facility] de Phone Number [facility] [address] [place] [address] * (ABNORMAL) GLUCOSE, GLUCOMETER (05/21/2008 10:49 EST) Glucose, Fingerstick 137(H) 70 - 100 mg/dl [facility] Database Management System Specialist ID [id number] Test Performed by Nursing Services [facility] 05/21/2008 10:4 9 EST 05/21/2008 23:05 EST us Jose Alejandro Castro MD CHEMISTRY & BLOOD GAS ORDERABLE S Final Result Performing Organization Address [facility] de Phone Number [facility] [address] [place] [address] * ELECTROLYTES (05/21/2008 10:44 EST) Sodium 143 [...] ORDERABLE S Final Result Performing Organization Address [facility]/State/ZIP Co de Phone Number [facility] [address] [place] [address] * (ABNORMAL) GLUCOSE, SERUM (05/21/2008 6:17 EST) Glucose, Serum 66(L) 70 - 100 mg/dl [facility] 05/21/2008 6:17 EST 05/21/2008 6:17 EST Jose Alejandro Castro MD CHEMISTRY & BLOOD GAS ORDERABLE S Final Result Performing Organization Address [facility] Co de Phone Number [facility] [address] [place] [address] * CREATININE (05/21/2008 6:17 EST) Pathologist [facility] Creatinine 0.66 0.6 - 1.2 mg/dl [facility] GFR, Calculated Age <18 ml/min/1.7 3m2 [facility] 05/21/2008 6:17 EST 05/21/2008 6:17 EST Jose Alejandro Castro MD CHEMISTRY & BLOOD GAS ORDERABLE S Final Result Performing Organization Address [facility] de Phone Number [facility] [address] [place] [address] * BUN (05/21/2008 6:17 EST) BUN 12 8 - 21 mg/dl [facility] 05/21/2008 6:17 EST 05/21/2008 6:17 EST Jose Alejandro Castro MD CHEMISTRY & BLOOD GAS ORDERABLE S Final Result Performing Organization Address City/[facility]/ZIP Co de Phone Number [facility] [address] [place] [address] * ELECTROLYTES (05/21/2008 6:17 EST) Sodium 142 136 - 145 mEq/L [facility] Potassium 4.3 3.5 - 5.0 mEq/L [facility] Chloride 109 96 - 110 mEq/L [facility] CO2 26 24 - 32 mEq/L [facility] 05/21/2008 6:17 EST 05/21/2008 6:17 EST Jose Alejandro Castro MD CHEMISTRY & BLOOD GAS ORDERABLE S Final Result Performing Organization Address [facility] de Phone Number [facility] [address] [place] [address] * (ABNORMAL) ELECTROLYTES (05/21/2008 2:10 EST) Sodium 144 136 - 145 mEq/L [facility] Potassium 4.9 3.5 - 5.0 mEq/L [facility] Chloride 112(H) 96 - 110 mEq/L [facility] CO2 22(L) 24 - 32 mEq/L [facility] 05/21/2008 2:10 EST 05/21/2008 2:10 EST Jose Alejandro Castro MD CHEMISTRY & BLOOD GAS ORDERABLE S Final Result Performing Organization Address [facility] Co de Phone Number [facility] [address] [place] [address] * GLUCOSE, SERUM (05/20/2008 22:13 EST) Glucose, Serum 89 70 - 100 mg/dl [facility] 05/20/2008 22:1 3 EST 05/20/2008 22:13 EST Jose Alejandro Castro MD CHEMISTRY & BLOOD GAS ORDERABLE S Final Result Performing Organization Address City/[facility] Co de Phone Number [facility] [address] [place] [address] * (ABNORMAL) ELECTROLYTES (05/20/2008 22:13 EST) Sodium [...] ORDERABLE S Final Result Performing Organization Address [facility] de Phone Number [facility] [address] [place] [address] * ELECTROLYTES (05/20/2008 18:35 EST) Sodium 143 [...] ORDERABLE S Final Result Performing Organization Address [facility] Phone Number [facility] [address] [place] [address] * ELECTROLYTES (05/20/2008 15:21 EST) Sodium 140 [...] ORDERABLE S Final Result Performing Organization Address [facility] Phone Number [facility] [address] [place] [address] * ELECTROLYTES (05/20/2008 11:47 EST) Sodium 140 [...] ORDERABLE S Final Result Performing Organization Address City/[facility] Co de Phone Number [facility] [address] [place] [address] * PREALBUMIN (05/20/2008 9:38 EST) Prealbumin 33 mg/dl [facility] 05/20/2008 9:38 EST 05/20/2008 9:38 EST Jose Alejandro Castro MD CHEMISTRY & BLOOD GAS ORDERABLE S Final Result Performing Organization Address City/[facility] Co de Phone Number [facility] [address] [place] [address] * (ABNORMAL) ELECTROLYTES (05/20/2008 9:38 EST) Sodium 133(L) 136 - 145 mEq/L [facility] Potassium 4.8 3.5 - 5.0 mEq/L [facility] Chloride 96 96 - 110 mEq/L [facility] CO2 28 24 - 32 mEq/L [facility] 05/20/2008 9:38 EST 05/20/2008 9:38 EST Jose Alejandro Castro MD CHEMISTRY & BLOOD GAS ORDERABLE S Final Result Performing Organization Address City/[facility]/ZIP Co de Phone Number [facility] [address] [place] [address] * TESTS ADDED BY PHONE (05/20/2008 9:38 EST) Tests to be added PALB [facility] Who Called ALEX [facility] Location Code M3 [facility] 05/20/2008 9:38 EST 05/20/2008 9:38 EST Jose Alejandro Castro MD CHEMISTRY & BLOOD GAS ORDERABLE S Final Result Performing Organization Address [facility]/ZIP Co de Phone Number [facility] [address] [place] [address] * (ABNORMAL) ELECTROLYTES (05/20/2008 5:50 EST) Sodium 128(L) 136 - 145 mEq/L [facility] Potassium 4.5 3.5 - 5.0 mEq/L [facility] Chloride 93(L) 96 - 110 mEq/L [facility] CO2 26 24 - 32 mEq/L [facility] 05/20/2008 5:50 EST 05/20/2008 5:58 EST Jose Alejandro Castro MD CHEMISTRY & BLOOD GAS ORDERABLE S Final Result Performing Organization Address [facility] Co de Phone Number [facility] [address] [place] [address] * (ABNORMAL) ELECTROLYTES (05/20/2008 2:50 EST) Sodium 127(L) 136 - 145 mEq/L [facility] Potassium 4.6 3.5 - 5.0 mEq/L [facility] Chloride 92(L) 96 - 110 mEq/L [facility] CO2 26 24 - 32 mEq/L [facility] 05/20/2008 2:50 EST 05/20/2008 2:51 EST Jose Alejandro Castro MD CHEMISTRY & BLOOD GAS ORDERABLE S Final Result Performing Organization Address City/[facility]/ZIP Co de Phone Number [facility] [address] [place] [address] * CREATININE (05/20/2008 0:00 EST) Creatinine 0.70 0.6 - 1.2 mg/dl [facility] GFR, Calculated Age <18 ml/min/1.7 3m2 [facility] 05/20/2008 05/20/2008 0:1 4 EST Jose Alejandro Castro MD CHEMISTRY & BLOOD GAS ORDERABLE S Final Result Performing Organization Address [facility] Co de Phone Number [facility] [address] [place] [address] * BUN (05/20/2008 0:00 EST) BUN 15 8 - 21 mg/dl [facility] 05/20/2008 05/20/2008 0:1 4 EST Jose Alejandro Castro MD CHEMISTRY & BLOOD GAS ORDERABLE S Final Result Performing Organization Address [facility] Co de Phone Number [facility] [address] [place] [address] * (ABNORMAL) ELECTROLYTES (05/20/2008 0:00 EST) Sodium 127(L) 136 - 145 mEq/L [facility] Potassium 4.7 3.5 - 5.0 mEq/L [facility] Chloride 92(L) 96 - 110 mEq/L [facility] CO2 26 24 - 32 mEq/L [facility] 05/20/2008 05/20/2008 0:1 4 EST Jose Alejandro Castro MD CHEMISTRY & BLOOD GAS ORDERABLE S Final Result Performing Organization Address [facility] Co de Phone Number [facility] [address] [place] [address] * (ABNORMAL) ELECTROLYTES (05/19/2008 18:10 EST) Sodium [...] ORDERABLE S Final Result Performing Organization Address [facility] de Phone Number [facility] [address] [place] [address] * (ABNORMAL) ELECTROLYTES (05/19/2008 13:40 EST) Sodium [...] ORDERABLE S Final Result Performing Organization Address [facility] de Phone Number [facility] [address] [place] [address] * SODIUM, URINE RANDOM (05/19/2008 12:00 EST) Sodium, Ur 123.0 mEq/L [facility] 05/19/2008 12:0 0 EST 05/19/2008 12:30 EST Jose Alejandro Castro MD URINALYSIS ORDERABLES Final Res ult Performing Organization Address [facility] de Phone Number [facility] [address] [place] [address] * PORTABLE CHEST 1 VIEW (05/19/2008 9:46 [...] 70 - 100 mg/dl [facility] Database Management System Specialist ID [id number] Test Performed by Nursing Services [facility] 05/19/2008 9:38 EST 05/20/2008 23:05 EST Jose Alejandro Castro MD CHEMISTRY & BLOOD GAS ORDERABLE S Final Result Performing Organization Address [facility] de Phone Number [facility] [address] [place] [address] * (ABNORMAL) ELECTROLYTES (05/19/2008 9:35 EST) Sodium [...] ORDERABLE S Final Result Performing Organization Address [facility] de Phone Number [facility] [address] [place] [address] * (ABNORMAL) ELECTROLYTES (05/19/2008 6:00 EST) Sodium 126(L) 136 - 145 mEq/L [facility] Potassium 4.2 3.5 - 5.0 mEq/L [facility] Chloride 90(L) 96 - 110 mEq/L [facility] CO2 26 24 - 32 mEq/L [facility] 05/19/2008 6:00 EST 05/19/2008 6:04 EST Jose Alejandro Castro MD CHEMISTRY & BLOOD GAS ORDERABLE S Final Result Performing Organization Address [facility] de Phone Number [facility] [address] [place] [address] * GLUCOSE, SERUM (05/19/2008 2:58 EST) Glucose, Serum 72 70 - 100 mg/dl [facility] 05/19/2008 2:58 EST 05/19/2008 2:59 EST Jose Alejandro Castro MD CHEMISTRY & BLOOD GAS ORDERABLE S Final Result Performing Organization Address [facility]/ZIP Co de Phone Number [facility] [address] [place] [address] * CREATININE (05/19/2008 2:58 EST) Creatinine 0.60 0.6 - 1.2 mg/dl [facility] GFR, Calculated Age <18 ml/min/1.7 3m2 [facility] 05/19/2008 2:58 EST 05/19/2008 2:59 EST Jose Alejandro Castro MD CHEMISTRY & BLOOD GAS ORDERABLE S Final Result Performing Organization Address [facility] de Phone Number [facility] [address] [place] [address] * BUN (05/19/2008 2:58 EST) BUN 9 8 - 21 mg/dl [facility] 05/19/2008 2:58 EST 05/19/2008 2:59 EST Jose Alejandro Castro MD CHEMISTRY & BLOOD GAS ORDERABLE S Final Result Performing Organization Address [facility] de Phone Number [facility] [address] [place] [address] * (ABNORMAL) ELECTROLYTES (05/19/2008 2:58 EST) Sodium 127(L) 136 - 145 mEq/L [facility] Potassium 4.1 3.5 - 5.0 mEq/L [facility] Chloride 91(L) 96 - 110 mEq/L [facility] CO2 27 24 - 32 mEq/L [facility] 05/19/2008 2:58 EST 05/19/2008 2:59 EST Jose Alejandro Castro MD CHEMISTRY & BLOOD GAS ORDERABLE S Final Result Performing Organization Address [facility] Co de Phone Number [facility] [address] [place] [address] * OSMOLALITY, URINE (05/18/2008 21:20 EST) Osmolality, Ur 639 MOS/KG [facility] 05/18/2008 21:2 0 EST 05/18/2008 21:23 EST us Jose Alejandro Castro MD URINALYSIS ORDERABLES Final Res ult Performing Organization Address [facility] de Phone Number [facility] [address] [place] [address] * SODIUM, URINE RANDOM (05/18/2008 21:20 EST) Sodium, Ur 289.0 mEq/L [facility] 05/18/2008 21:2 0 EST 05/18/2008 21:23 EST us Jose Alejandro Castro MD URINALYSIS ORDERABLES Final Res ult Performing Organization Address [facility] Phone Number [facility] [address] [place] [address] * POTASSIUM, URINE RANDOM (05/18/2008 21:20 EST) Potassium, Urine 34.4 mEq/L [facility] 05/18/2008 21:2 0 EST 05/18/2008 21:23 EST us Jose Alejandro Castro MD URINALYSIS ORDERABLES Final Res ult Performing Organization Address [facility] de Phone Number [facility] [address] [place] [address] * CREATININE, URINE RANDOM (05/18/2008 21:20 EST) Creatinine, Urn Ada 25.1 mg/dl [facility] 05/18/2008 21:2 0 EST 05/18/2008 21:23 EST us Jose Alejandro Castro MD URINALYSIS ORDERABLES Final Res ult Performing Organization Address [facility] de Phone Number [facility] [address] [place] [address] * CALCIUM, IONIZED (05/18/2008 21:17 EST) Calcium, Ionized 1.17 1.12 - 1.32 mmol/L [facility] acetone button [place] [id number] Test performed by Chemistry [facility] 05/18/2008 21:1 7 EST 05/18/2008 21:20 EST Jose Alejandro Castro MD CHEMISTRY & BLOOD GAS ORDERABLE S Final Result Performing Organization Address [facility] Co de Phone Number [facility] [address] [place] [address] * GLUCOSE, SERUM (05/18/2008 21:00 EST) Glucose, Serum 77 70 - 100 mg/dl [facility] 05/18/2008 21:0 0 EST 05/18/2008 21:07 EST Jose Alejandro Castro MD CHEMISTRY & BLOOD GAS ORDERABLE S Final Result Performing Organization Address [facility] de Phone Number [facility] [address] [place] [address] * PHOSPHORUS (05/18/2008 21:00 EST) Phosphorus 3.4 2.7 - 4.7 mg/dl [facility] 05/18/2008 21:0 0 EST 05/18/2008 21:07 EST Jose Alejandro Castro MD CHEMISTRY & BLOOD GAS ORDERABLE S Final Result Performing Organization Address City/[facility] Co de Phone Number [facility] [address] [place] [address] * MAGNESIUM (05/18/2008 21:00 EST) Magnesium 1.8 1.7 - 2.8 mg/dl [facility] 05/18/2008 21:0 0 EST 05/18/2008 21:07 EST Jose Alejandro Castro MD CHEMISTRY & BLOOD GAS ORDERABLE S Final Result Performing Organization Address [facility]/ZIP Co de Phone Number [facility] [address] [place] [address] * CREATININE (05/18/2008 21:00 EST) Creatinine 0.60 0.6 - 1.2 mg/dl [facility] GFR, Calculated Age <18 ml/min/1.7 3m2 [facility] 05/18/2008 21:0 0 EST 05/18/2008 21:07 EST Jose Alejandro Castro MD CHEMISTRY & BLOOD GAS ORDERABLE S Final Result Performing Organization Address [facility] de Phone Number [facility] [address] [place] [address] * BUN (05/18/2008 21:00 EST) BUN 8 8 - 21 mg/dl [facility] 05/18/2008 21:0 0 EST 05/18/2008 21:07 EST Jose Alejandro Castro MD CHEMISTRY & BLOOD GAS ORDERABLE S Final Result Performing Organization Address [facility] de Phone Number [facility] [address] [place] [address] * (ABNORMAL) ELECTROLYTES (05/18/2008 21:00 EST) Sodium [...] ORDERABLE S Final Result Performing Organization Address City/[facility]/ZIP Co de Phone Number [facility] [address] [place] [address] * CALCIUM IONIZED (05/18/2008 21:00 EST) Ionized Calcium Note Sample sent to Lab. [facility] 05/18/2008 21:0 0 EST 05/18/2008 21:07 EST Jose Alejandro Castro MD CHEMISTRY & BLOOD GAS ORDERABLE S Final Result Performing Organization Address [facility] de Phone Number [facility] [address] [place] [address] * GLUCOSE, GLUCOMETER (05/18/2008 15:50 EST) Glucose, Fingerstick 90 70 - 100 mg/dl [facility] Database Management System Specialist ID [id number] Test Performed by Nursing Services [facility] 05/18/2008 15:5 0 EST 05/18/2008 23:25 EST us Jose Alejandro Castro MD CHEMISTRY & BLOOD GAS ORDERABLE S Final Result Performing Organization Address [facility] Phone Number [facility] [address] [place] [address] * (ABNORMAL) ELECTROLYTES (05/18/2008 15:48 EST) Sodium [...] Performing Organization Address [facility] de Phone Number [facility] [address] [place] [address] * GLUCOSE, GLUCOMETER (05/18/2008 9:24 EST) Glucose, Fingerstick 88 70 - 100 mg/dl [facility] Database Management System Specialist ID [id number] Test Performed by Nursing Services [facility] 05/18/2008 9:24 EST 05/18/2008 23:25 EST Jose Alejandro Castro MD CHEMISTRY & BLOOD GAS ORDERABLE S Final Result Performing Organization Address [facility] de Phone Number [facility] [address] [place] [address] * ELECTROLYTES (05/18/2008 9:20 EST) Sodium 140 [...] Performing Organization Address [facility] Phone Number [facility] [address] [place] [address] * GLUCOSE, SERUM (05/18/2008 3:00 EST) Glucose, Serum 97 70 - 100 mg/dl [facility] 05/18/2008 3:00 EST 05/18/2008 3:15 EST Jose Alejandro Castro MD CHEMISTRY & BLOOD GAS ORDERABLE S Final Result Performing Organization Address [facility] Co de Phone Number [facility] [address] [place] [address] * CREATININE (05/18/2008 3:00 EST) Creatinine 0.60 0.6 - 1.2 mg/dl [facility] GFR, Calculated Age <18 ml/min/1.7 3m2 [facility] 05/18/2008 3:00 EST 05/18/2008 3:15 EST us Jose Alejandro Castro MD CHEMISTRY & BLOOD GAS ORDERABLE S Final Result Performing Organization Address [facility] Phone Number [facility] [address] [place] [address] * BUN (05/18/2008 3:00 EST) BUN 9 8 - 21 mg/dl [facility] 05/18/2008 3:00 EST 05/18/2008 3:15 EST us Jose Alejandro Castro MD CHEMISTRY & BLOOD GAS ORDERABLE S Final Result Performing Organization Address [facility] Phone Number [facility] [address] [place] [address] * ELECTROLYTES (05/18/2008 3:00 EST) Sodium 142 136 - 145 mEq/L [facility] Potassium 3.5 3.5 - 5.0 mEq/L [facility] Chloride 105 96 - 110 mEq/L [facility] CO2 26 24 - 32 mEq/L [facility] 05/18/2008 3:00 EST 05/18/2008 3:15 EST us Jose Alejandro Castro MD CHEMISTRY & BLOOD GAS ORDERABLE S Final Result Performing Organization Address [facility] de Phone Number [facility] [address] [place] [address] * GLUCOSE, SERUM (05/17/2008 21:10 EST) Glucose, Serum 82 70 - 100 mg/dl [facility] 05/17/2008 21:1 0 EST 05/17/2008 21:30 EST us Jose Alejandro Castro MD CHEMISTRY & BLOOD GAS ORDERABLE S Final Result Performing Organization Address City/[facility]/ZIP Co de Phone Number [facility] [address] [place] [address] * ELECTROLYTES (05/17/2008 21:10 EST) Sodium 142 136 - 145 mEq/L [facility] Potassium 4.1 3.5 - 5.0 mEq/L [facility] Chloride 105 96 - 110 mEq/L [facility] CO2 27 24 - 32 mEq/L [facility] 05/17/2008 21:1 0 EST 05/17/2008 21:30 EST Jose Alejandro Castro MD CHEMISTRY & BLOOD GAS ORDERABLE S Final Result Performing Organization Address [facility] Co de Phone Number [facility] [address] [place] [address] * GLUCOSE, SERUM (05/17/2008 15:00 EST) Glucose, Serum 86 70 - 100 mg/dl [facility] 05/17/2008 15:0 0 EST 05/17/2008 15:16 EST Jose Alejandro Castro MD CHEMISTRY & BLOOD GAS ORDERABLE S Final Result Performing Organization Address [facility] de Phone Number [facility] [address] [place] [address] * ELECTROLYTES (05/17/2008 15:00 EST) Sodium 137 [...] ORDERABLE S Final Result Performing Organization Address [facility] Co de Phone Number [facility] [address] [place] [address] * (ABNORMAL) T4 FREE (05/17/2008 9:00 EST) Free T4 0.7(L) 0.8 - 1.5 ng/dL [facility] 05/17/2008 9:00 EST 05/17/2008 9:29 EST Jose Alejandro Castro MD CHEMISTRY & BLOOD GAS ORDERABLE S Final Result Performing Organization Address [facility] Phone Number [facility] [address] [place] [address] * TESTS ADDED BY PHONE (05/17/2008 9:00 EST) Pathologist [facility] Tests to be added FT4 [facility] Who Called [facility] Location Code M3 [facility] 05/17/2008 9:00 EST 05/17/2008 9:29 EST Jose Alejandro Castro MD CHEMISTRY & BLOOD GAS ORDERABLE S Final Result Performing Organization Address [facility] Phone Number [facility] [address] [place] [address] * GLUCOSE, SERUM (05/17/2008 9:00 EST) [facility] Glucose, Serum 87 70 - 100 mg/dl [facility] Comment:Heparinized plasma. 05/17/2008 9:00 EST 05/17/2008 9:29 EST Jose Alejandro Castro MD CHEMISTRY & BLOOD GAS ORDERABLE S Final Result Performing Organization Address [facility] Phone Number [facility] [address] [place] [address] * (ABNORMAL) ELECTROLYTES (05/17/2008 9:00 EST) [facility] Sodium 135(L) 136 - 145 mEq/L AN[facility] [...] ORDERABLE S Final Result Performing Organization Address [facility] de Phone Number [facility] [address] [place] [address] * HOLD GREEN TOP (05/17/2008 5:48 EST) Hold Green Top Hold for further testing. Specimen will be held for 5 days. [facility] 05/17/2008 5:48 EST 05/17/2008 5:48 EST Jose Alejandro Castro MD LAB INFO SERVICE AND SUPPORT & PHONE RESULT Final Result Performing Organization Address [facility] de Phone Number [facility] [address] [place] [address] * HOLD PURPLE TOP (05/17/2008 5:46 EST) Hold Purple Top EDTA for hematology will be discarded after 48 hours, differential not available after 12 hours. [facility] 05/17/2008 5:46 EST 05/17/2008 5:46 EST Jose Alejandro Castro MD LAB INFO SERVICE AND SUPPORT & PHONE RESULT Final Result Performing Organization Address [facility] de Phone Number [facility] [address] [place] [address] * (ABNORMAL) HEMAGRAM (05/17/2008 5:46 EST) WBC [...] ORDERABLES Fin al Result Performing Organization Address [facility] Co de Phone Number [facility] [address] [place] [address] * GLUCOSE, SERUM (05/17/2008 5:46 EST) Glucose, Serum 76 70 - 100 mg/dl [facility] 05/17/2008 5:46 EST 05/17/2008 5:46 EST Jose Alejandro Castro MD CHEMISTRY & BLOOD GAS ORDERABLE S Final Result Performing Organization Address [facility] de Phone Number [facility] [address] [place] [address] * CREATININE (05/17/2008 5:46 EST) Creatinine 0.60 0.6 - 1.2 mg/dl [facility] GFR, Calculated Age <18 ml/min/1.7 3m2 [facility] 05/17/2008 5:46 EST 05/17/2008 5:46 EST Jose Alejandro Castro MD CHEMISTRY & BLOOD GAS ORDERABLE S Final Result Performing Organization Address [facility] de Phone Number [facility] [address] [place] [address] * (ABNORMAL) BUN (05/17/2008 5:46 EST) BUN 7(L) 8 - 21 mg/dl [facility] 05/17/2008 5:46 EST 05/17/2008 5:46 EST us Jose Alejandro Castro MD CHEMISTRY & BLOOD GAS ORDERABLE S Final Result Performing Organization Address [facility] de Phone Number [facility] [address] [place] [address] * ELECTROLYTES (05/17/2008 5:46 EST) Sodium 137 136 - 145 mEq/L [facility] Potassium 4.0 3.5 - 5.0 mEq/L [facility] Chloride 101 96 - 110 mEq/L [facility] CO2 26 24 - 32 mEq/L [facility] 05/17/2008 5:46 EST 05/17/2008 5:46 EST us Jose Alejandro Castro MD CHEMISTRY & BLOOD GAS ORDERABLE S Final Result Performing Organization Address [facility] Phone Number [facility] [address] [place] [address] * GLUCOSE, SERUM (05/17/2008 2:09 EST) Glucose, Serum 79 70 - 100 mg/dl [facility] 05/17/2008 2:09 EST 05/17/2008 2:09 EST us Jose Alejandro Castro MD CHEMISTRY & BLOOD GAS ORDERABLE S Final Result Performing Organization Address [facility] de Phone Number [facility] [address] [place] [address] * ELECTROLYTES (05/17/2008 2:09 EST) Sodium 140 136 - 145 mEq/L [facility] Potassium 4.5 3.5 - 5.0 mEq/L [facility] Chloride 105 96 - 110 mEq/L [facility] CO2 26 24 - 32 mEq/L [facility] 05/17/2008 2:09 EST 05/17/2008 2:09 EST us Jose Alejandro Castro MD CHEMISTRY & BLOOD GAS ORDERABLE S Final Result Performing Organization Address [facility] Co de Phone Number [facility] [address] [place] [address] * GLUCOSE, SERUM (05/16/2008 22:09 EST) Glucose, Serum 92 70 - 100 mg/dl [facility] 05/16/2008 22:0 9 EST 05/16/2008 22:09 EST Jose Alejandro Castro MD CHEMISTRY & BLOOD GAS ORDERABLE S Final Result Performing Organization Address [facility] de Phone Number [facility] [address] [place] [address] * ELECTROLYTES (05/16/2008 22:09 EST) Sodium 144 136 - 145 mEq/L [facility] Potassium 3.8 3.5 - 5.0 mEq/L [facility] Chloride 108 96 - 110 mEq/L [facility] CO2 26 24 - 32 mEq/L [facility] 05/16/2008 22:0 9 EST 05/16/2008 22:09 EST Jose Alejandro Castro MD CHEMISTRY & BLOOD GAS ORDERABLE S Final Result Performing Organization Address [facility] Phone Number [facility] [address] [place] [address] * (ABNORMAL) GLUCOSE, SERUM (05/16/2008 18:53 EST) Glucose, Serum 106(H) 70 - 100 mg/dl [facility] 05/16/2008 18:5 3 EST 05/16/2008 18:54 EST Jose Alejandro Castro MD CHEMISTRY & BLOOD GAS ORDERABLE S Final Result Performing Organization Address [facility] de Phone Number [facility] [address] [place] [address] * ELECTROLYTES (05/16/2008 18:53 EST) Sodium 138 136 - 145 mEq/L [facility] Potassium 3.7 3.5 - 5.0 mEq/L [facility] Chloride 102 96 - 110 mEq/L [facility] CO2 26 24 - 32 mEq/L [facility] 05/16/2008 18:5 3 EST 05/16/2008 18:54 EST Jose Alejandro Castro MD CHEMISTRY & BLOOD GAS ORDERABLE S Final Result Performing Organization Address [facility] de Phone Number [facility] [address] [place] [address] * (ABNORMAL) GLUCOSE, SERUM (05/16/2008 16:00 EST) Glucose, Serum 63(L) 70 - 100 mg/dl [facility] 05/16/2008 16:0 0 EST 05/16/2008 16:27 EST Jose Alejandro Castro MD CHEMISTRY & BLOOD GAS ORDERABLE S Final Result Performing Organization Address [facility] Phone Number [facility] [address] [place] [address] * (ABNORMAL) ELECTROLYTES (05/16/2008 16:00 EST) Sodium [...] ORDERABLE S Final Result Performing Organization Address [facility] de Phone Number [facility] [address] [place] [address] * (ABNORMAL) GLUCOSE, SERUM (05/16/2008 12:59 EST) Glucose, Serum 101(H) 70 - 100 mg/dl [facility] 05/16/2008 12:5 9 EST 05/16/2008 12:59 EST Jose Alejandro Castro MD CHEMISTRY & BLOOD GAS ORDERABLE S Final Result Performing Organization Address [facility] Co de Phone Number [facility] [address] [place] [address] * (ABNORMAL) ELECTROLYTES (05/16/2008 12:59 EST) Sodium [...] ORDERABLE S Final Result Performing Organization Address [facility] Co de Phone Number [facility] [address] [place] [address] * GLUCOSE, SERUM (05/16/2008 9:58 EST) Glucose, Serum 82 70 - 100 mg/dl [facility] 05/16/2008 9:58 EST 05/16/2008 9:58 EST Jose Alejandro Castro MD CHEMISTRY & BLOOD GAS ORDERABLE S Final Result Performing Organization Address [facility] Co de Phone Number [facility] [address] [place] [address] * (ABNORMAL) ELECTROLYTES (05/16/2008 9:58 EST) Sodium 138 136 - 145 mEq/L [facility] Potassium 4.4 3.5 - 5.0 mEq/L [facility] Chloride 106 96 - 110 mEq/L [facility] CO2 22(L) 24 - 32 mEq/L [facility] 05/16/2008 9:58 EST 05/16/2008 9:58 EST Jose Alejandro Castro MD CHEMISTRY & BLOOD GAS ORDERABLE S Final Result Performing Organization Address [facility] Co de Phone Number [facility] [address] [place] [address] * GLUCOSE, SERUM (05/16/2008 6:50 EST) Glucose, Serum 77 70 - 100 mg/dl [facility] 05/16/2008 6:50 EST 05/16/2008 7:05 EST Jose Alejandro Castro MD CHEMISTRY & BLOOD GAS ORDERABLE S Final Result Performing Organization Address [facility] de Phone Number [facility] [address] [place] [address] * ELECTROLYTES (05/16/2008 6:50 EST) Sodium 138 136 - 145 mEq/L [facility] Potassium 4.2 3.5 - 5.0 mEq/L [facility] Chloride 105 96 - 110 mEq/L [facility] CO2 26 24 - 32 mEq/L [facility] 05/16/2008 6:50 EST 05/16/2008 7:05 EST Jose Alejandro Castro MD CHEMISTRY & BLOOD GAS ORDERABLE S Final Result Performing Organization Address [facility] de Phone Number [facility] [address] [place] [address] * TESTS ADDED BY PHONE (05/16/2008 4:15 EST) Tests to be added HIVS,HBAG,HC AB CHARGE TO [id number] [facility] Who Called [facility] Location Code [facility] 05/16/2008 4:15 EST 05/16/2008 4:23 EST Jose Alejandro Castro MD CHEMISTRY & BLOOD GAS ORDERABLE S Final Result Performing Organization Address City/[facility]/ZIP Co de Phone Number [facility] [address] [place] [address] * TESTS ADDED BY PHONE (05/16/2008 4:15 EST) Tests to be added CARLOS HAY TO [facility] [id number] [facility] Who Called [email or web address] Location Code [facility] 05/16/2008 4:15 EST 05/16/2008 4:23 EST Jose Alejandro Castro MD CHEMISTRY & BLOOD GAS ORDERABLE S Final Result [facility] [address] [place] [address] * (ABNORMAL) TOTAL PROTEIN (05/16/2008 4:15 EST) Total Protein 5.5(L) 6.3 - 8.6 g/dl [facility] 05/16/2008 4:15 EST 05/16/2008 4:23 EST Jose Alejandro Castro MD CHEMISTRY & BLOOD GAS ORDERABLE S Final Result Performing Organization Address City/[facility]/ZIP Co de Phone Number [facility] [address] [place] [address] * GLUCOSE, SERUM (05/16/2008 4:15 EST) Glucose, Serum 100 70 - 100 mg/dl [facility] 05/16/2008 4:15 EST 05/16/2008 4:23 EST Jose Alejandro Castro MD CHEMISTRY & BLOOD GAS ORDERABLE S Final Result [facility] [address] [place] [address] * CREATININE (05/16/2008 4:15 EST) Creatinine 0.60 0.6 - 1.2 mg/dl [facility] GFR, Calculated Age <18 ml/min/1.7 3m2 [facility] 05/16/2008 4:15 EST 05/16/2008 4:23 EST us Jose Alejandro Castro MD CHEMISTRY & BLOOD GAS ORDERABLE S Final Result Performing Organization Address [facility] Co de Phone Number [facility] [address] [place] [address] * BUN (05/16/2008 4:15 EST) BUN 9 8 - 21 mg/dl [facility] 05/16/2008 4:15 EST 05/16/2008 4:23 EST us Jose Alejandro Castro MD CHEMISTRY & BLOOD GAS ORDERABLE S Final Result Performing Organization Address [facility] de Phone Number [facility] [address] [place] [address] * TOTAL & DIRECT BILIRUBIN (05/16/2008 4:15 EST) Conjugated Bilirubin 0.0 0.0 - 0.3 mg/dl [facility] Unconjugated Bilirubin 0.7 0.1 - 1.1 mg/dl [facility] Bilirubin, Total 0.7 0.0 - 1.4 mg/dl [facility] 05/16/2008 4:15 EST 05/16/2008 4:23 EST us Jose Alejandro Castro MD CHEMISTRY & BLOOD GAS ORDERABLE S Final Result Performing Organization Address [facility] Co de Phone Number [facility] [address] [place] [address] * AST (05/16/2008 4:15 EST) AST 25 15 - 46 U/L [facility] 05/16/2008 4:15 EST 05/16/2008 4:23 EST us Jose Alejandro Castro MD CHEMISTRY & BLOOD GAS ORDERABLE S Final Result Performing Organization Address [facility]/ZIP Co de Phone Number [facility] [address] [place] [address] * ALT (05/16/2008 4:15 EST) ALT 41 0 - 45 U/L [facility] 05/16/2008 4:15 EST 05/16/2008 4:23 EST Jose Alejandro Castro MD CHEMISTRY & BLOOD GAS ORDERABLE S Final Result Performing Organization Address [facility] de Phone Number [facility] [address] [place] [address] * ALKALINE PHOSPHATASE (05/16/2008 4:15 EST) Alkaline Phosphatase 96 65 - 260 U/L [facility] 05/16/2008 4:15 EST 05/16/2008 4:23 EST Jose Alejandro Castro MD CHEMISTRY & BLOOD GAS ORDERABLE S Final Result Performing Organization Address [facility] Phone Number [facility] [address] [place] [address] * (ABNORMAL) ALBUMIN (05/16/2008 4:15 EST) Albumin 2.7(L) 3.0 - 5.5 g/dl [facility] 05/16/2008 4:15 EST 05/16/2008 4:23 EST Jose Alejandro Castro MD CHEMISTRY & BLOOD GAS ORDERABLE S Final Result Performing Organization Address [facility] Phone Number [facility] [address] [place] [address] * ELECTROLYTES (05/16/2008 4:15 EST) Sodium 138 136 - 145 mEq/L [facility] Potassium 4.3 3.5 - 5.0 mEq/L [facility] Chloride 106 96 - 110 mEq/L [facility] CO2 25 24 - 32 mEq/L [facility] 05/16/2008 4:15 EST 05/16/2008 4:23 EST Jose Alejandro Castro MD CHEMISTRY & BLOOD GAS ORDERABLE S Final Result [facility] [address] [place] [address] * GLUCOSE, SERUM (05/16/2008 1:05 EST) Glucose, Serum 85 70 - 100 mg/dl [facility] 05/16/2008 1:05 EST 05/16/2008 1:32 EST Jose Alejandro Castro MD CHEMISTRY & BLOOD GAS ORDERABLE S Final Result Performing Organization Address [facility] Co de Phone Number [facility] [address] [place] [address] * ELECTROLYTES (05/16/2008 1:05 EST) Sodium 140 136 - 145 mEq/L [facility] Potassium 4.0 3.5 - 5.0 mEq/L [facility] Chloride 107 96 - 110 mEq/L [facility] CO2 26 24 - 32 mEq/L [facility] 05/16/2008 1:05 EST 05/16/2008 1:32 EST Jose Alejandro Castro MD CHEMISTRY & BLOOD GAS ORDERABLE S Final Result Performing Organization Address [facility] Co de Phone Number [facility] [address] [place] [address] * GLUCOSE, SERUM (05/15/2008 22:35 EST) Glucose, Serum 70 70 - 100 mg/dl [facility] 05/15/2008 22:3 5 EST 05/15/2008 22:43 EST Jose Alejandro Castro MD CHEMISTRY & BLOOD GAS ORDERABLE S Final Result Performing Organization Address City/[facility]/ZIP Co de Phone Number [facility] [address] [place] [address] * ELECTROLYTES (05/15/2008 22:35 EST) Sodium 140 136 - 145 mEq/L [facility] Potassium 4.8 3.5 - 5.0 mEq/L [facility] Chloride 106 96 - 110 mEq/L [facility] CO2 26 24 - 32 mEq/L [facility] 05/15/2008 22:3 5 EST 05/15/2008 22:43 EST Jose Alejandro Castro MD CHEMISTRY & BLOOD GAS ORDERABLE S Final Result Performing Organization Address [facility] de Phone Number [facility] [address] [place] [address] * GLUCOSE, SERUM (05/15/2008 19:35 EST) Glucose, Serum 87 70 - 100 mg/dl [facility] 05/15/2008 19:3 5 EST 05/15/2008 19:38 EST Jose Alejandro Castro MD CHEMISTRY & BLOOD GAS ORDERABLE S Final Result Performing Organization Address [facility] de Phone Number [facility] [address] [place] [address] * ELECTROLYTES (05/15/2008 19:35 EST) Sodium 137 [...] ORDERABLE S Final Result Performing Organization Address [facility] de Phone Number [facility] [address] [place] [address] * XRAY FEEDING TUBE PLACEMENT (05/15/2008 18:28 [...] 70 - 100 mg/dl [facility] Database Management System Specialist [place] [id number] Test Performed by Nursing Services [facility] 05/15/2008 17:2 9 EST 05/15/2008 23:00 EST Jose Alejandro Castro MD CHEMISTRY & BLOOD GAS ORDERABLE S Final Result [facility] [address] [place] [address] * (ABNORMAL) GLUCOSE, SERUM (05/15/2008 16:32 EST) Glucose, Serum 68(L) 70 - 100 mg/dl [facility] 05/15/2008 16:3 2 EST 05/15/2008 16:32 EST Jose Alejandro Castro MD CHEMISTRY & BLOOD GAS ORDERABLE S Final Result Performing Organization Address [facility] Phone Number [facility] [address] [place] [address] * (ABNORMAL) ELECTROLYTES (05/15/2008 16:32 EST) Sodium 130(L) 136 - 145 mEq/L [facility] Potassium 4.4 3.5 - 5.0 mEq/L [facility] Chloride 96 96 - 110 mEq/L [facility] CO2 26 24 - 32 mEq/L [facility] 05/15/2008 16:3 2 EST 05/15/2008 16:32 EST Jose Alejandro Castro MD CHEMISTRY & BLOOD GAS ORDERABLE S Final Result Performing Organization Address [facility] Phone Number [facility] [address] [place] [address] * (ABNORMAL) ELECTROLYTES (05/15/2008 13:28 EST) [facility] Sodium 128(L) 136 - 145 mEq/L [facility] [...] ORDERABLE S Final Result Performing Organization Address [facility] Phone Number [facility] [address] [place] [address] * GLUCOSE, GLUCOMETER (05/15/2008 13:26 EST) Glucose, Fingerstick 70 70 - 100 mg/dl [facility] Database Management System Specialist ID [id number] Test Performed by Nursing Services [facility] 05/15/2008 13:2 6 EST 05/15/2008 23:00 EST Jose Alejandro Castro MD CHEMISTRY & BLOOD GAS ORDERABLE S Final Result Performing Organization Address [facility] Phone Number [facility] [address] [place] [address] * (ABNORMAL) ELECTROLYTES (05/15/2008 10:05 EST) Sodium 125(L) 136 - 145 mEq/L [facility] Potassium 4.2 3.5 - 5.0 mEq/L [facility] Chloride 91(L) 96 - 110 mEq/L [facility] CO2 26 24 - 32 mEq/L [facility] 05/15/2008 10:0 5 EST 05/15/2008 10:05 EST us Jose Alejandro Castro MD CHEMISTRY & BLOOD GAS ORDERABLE S Final Result Performing Organization Address [facility] Phone Number [facility] [address] [place] [address] * GLUCOSE, GLUCOMETER (05/15/2008 10:00 EST) Glucose, Fingerstick 99 70 - 100 mg/dl [facility] Database Management System Specialist ID [id number] Test Performed by Nursing Services [facility] 05/15/2008 10:0 0 EST 05/15/2008 23:00 EST us Jose Alejandro Castro MD CHEMISTRY & BLOOD GAS ORDERABLE S Final Result Performing Organization Address [facility] Phone Number [facility] [address] [place] [address] * (ABNORMAL) GLUCOSE, GLUCOMETER (05/15/2008 8:35 EST) Glucose, Fingerstick 113(H) 70 - 100 mg/dl [facility] Database Management System Specialist ID [id number] Test Performed by Nursing Services [facility] 05/15/2008 8:35 EST 05/15/2008 23:00 EST us Jose Alejandro Castro MD CHEMISTRY & BLOOD GAS ORDERABLE S Final Result Performing Organization Address [facility] Co de Phone Number [facility] [address] [place] [address] * OSMOLALITY, URINE (05/15/2008 8:09 EST) Osmolality, Ur 298 MOS/KG [facility] 05/15/2008 8:09 EST 05/15/2008 8:09 EST Jose Alejandro Castro MD URINALYSIS ORDERABLES Final Res ult Performing Organization Address [facility] de Phone Number [facility] [address] [place] [address] * SODIUM, URINE RANDOM (05/15/2008 8:09 EST) Sodium, Ur 133.0 mEq/L [facility] 05/15/2008 8:09 EST 05/15/2008 8:09 EST Jose Alejandro Castro MD URINALYSIS ORDERABLES Final Res ult Performing Organization Address [facility] de Phone Number [facility] [address] [place] [address] * POTASSIUM, URINE RANDOM (05/15/2008 8:09 EST) Potassium, Urine 6.4 mEq/L [facility] 05/15/2008 8:09 EST 05/15/2008 8:09 EST us Jose Alejandro Castro MD URINALYSIS ORDERABLES Final Res ult Performing Organization Address [facility] de Phone Number [facility] [address] [place] [address] * CREATININE, URINE RANDOM (05/15/2008 8:09 EST) Creatinine, Urn Ada 12.8 mg/dl [facility] 05/15/2008 8:09 EST 05/15/2008 8:09 EST us Jose Alejandro Castro MD URINALYSIS ORDERABLES Final Res ult Performing Organization Address [facility]/State/ZIP Co de Phone Number [facility] [address] [place] [address] * (ABNORMAL) ALBUMIN (05/15/2008 6:40 EST) Albumin 2.7(L) 3.0 - 5.5 g/dl [facility] 05/15/2008 6:40 EST 05/15/2008 7:00 EST Jose Alejandro Castro MD CHEMISTRY & BLOOD GAS ORDERABLE S Final Result Performing Organization Address [facility] Co de Phone Number [facility] [address] [place] [address] * (ABNORMAL) GLUCOSE, SERUM (05/15/2008 6:40 EST) Glucose, Serum 65(L) 70 - 100 mg/dl [facility] 05/15/2008 6:40 EST 05/15/2008 7:00 EST Jose Alejandro Castro MD CHEMISTRY & BLOOD GAS ORDERABLE S Final Result Performing Organization Address [facility] de Phone Number [facility] [address] [place] [address] * (ABNORMAL) PHOSPHORUS (05/15/2008 6:40 EST) Phosphorus 2.4(L) 2.7 - 4.7 mg/dl [facility] 05/15/2008 6:40 EST 05/15/2008 7:00 EST Jose Alejandro Castro MD CHEMISTRY & BLOOD GAS ORDERABLE S Final Result Performing Organization Address [facility] Co de Phone Number [facility] [address] [place] [address] * (ABNORMAL) MAGNESIUM (05/15/2008 6:40 EST) Magnesium 1.5(L) 1.7 - 2.8 mg/dl [facility] 05/15/2008 6:40 EST 05/15/2008 7:00 EST Jose Alejandro Castro MD CHEMISTRY & BLOOD GAS ORDERABLE S Final Result Performing Organization Address [facility] de Phone Number [facility] [address] [place] [address] * (ABNORMAL) CALCIUM (05/15/2008 6:40 EST) Calcium 7.5(L) 8.5 - 10.5 mg/dl [facility] Calculated Calcium 9.2 8.5 - 10.5 mg/dl [facility] 05/15/2008 6:40 EST 05/15/2008 7:00 EST Jose Alejandro Castro MD CHEMISTRY & BLOOD GAS ORDERABLE S Final Result Performing Organization Address [facility] de Phone Number [facility] [address] [place] [address] * (ABNORMAL) ELECTROLYTES (05/15/2008 6:40 EST) Sodium [...] ORDERABLE S Final Result Performing Organization Address [facility] Co de Phone Number [facility] [address] [place] [address] * GLUCOSE, SERUM (05/15/2008 3:55 EST) Glucose, Serum 89 70 - 100 mg/dl [facility] 05/15/2008 3:55 EST 05/15/2008 4:03 EST Jose Alejandro Castro MD CHEMISTRY & BLOOD GAS ORDERABLE S Final Result Performing Organization Address [facility]/ZIP Co de Phone Number [facility] [address] [place] [address] * (ABNORMAL) CREATININE (05/15/2008 3:55 EST) Creatinine 0.50(L) 0.6 - 1.2 mg/dl [facility] GFR, Calculated Age <18 ml/min/1.7 3m2 [facility] 05/15/2008 3:55 EST 05/15/2008 4:03 EST Jose Alejandro Castro MD CHEMISTRY & BLOOD GAS ORDERABLE S Final Result Performing Organization Address [facility] Co de Phone Number [facility] [address] [place] [address] * (ABNORMAL) BUN (05/15/2008 3:55 EST) BUN 6(L) 8 - 21 mg/dl [facility] 05/15/2008 3:55 EST 05/15/2008 4:03 EST Jose Alejandro Castro MD CHEMISTRY & BLOOD GAS ORDERABLE S Final Result Performing Organization Address [facility] de Phone Number [facility] [address] [place] [address] * (ABNORMAL) ELECTROLYTES (05/15/2008 3:55 EST) Sodium [...] ORDERABLE S Final Result Performing Organization Address [facility] Co de Phone Number [facility] [address] [place] [address] * OSMOLALITY, URINE (05/15/2008 2:10 EST) Pathologist [facility] Osmolality, Ur 372 MOS/KG [facility] 05/15/2008 2:10 EST 05/15/2008 2:15 EST Jose Alejandro Castro MD URINALYSIS ORDERABLES Final Res ult Performing Organization Address [facility] de Phone Number [facility] [address] [place] [address] * SODIUM, URINE RANDOM (05/15/2008 2:10 EST) Pathologist [facility] Sodium, Ur 167.0 mEq/L [facility] 05/15/2008 2:10 EST 05/15/2008 2:15 EST Jose Alejandro Castro MD URINALYSIS ORDERABLES Final Res ult Performing Organization Address [facility] de Phone Number [facility] [address] [place] [address] * GLUCOSE, SERUM (05/15/2008 0:45 EST) [facility] Glucose, Serum 97 70 - 100 mg/dl [facility] 05/15/2008 0:45 EST 05/15/2008 0:50 EST Jose Alejandro Castro MD CHEMISTRY & BLOOD GAS ORDERABLE S Final Result Performing Organization Address [facility] de Phone Number [facility] [address] [place] [address] * (ABNORMAL) PHOSPHORUS (05/15/2008 0:45 EST) Pathologist [facility] Phosphorus 2.5(L) 2.7 - 4.7 mg/dl [facility] 05/15/2008 0:45 EST 05/15/2008 0:50 EST Jose Alejandro Castro MD CHEMISTRY & BLOOD GAS ORDERABLE S Final Result Performing Organization Address [facility] de Phone Number [facility] [address] [place] [address] * (ABNORMAL) MAGNESIUM (05/15/2008 0:45 EST) Magnesium 1.5(L) 1.7 - 2.8 mg/dl [facility] 05/15/2008 0:45 EST 05/15/2008 0:50 EST Jose Alejandro Castro MD CHEMISTRY & BLOOD GAS ORDERABLE S Final Result Performing Organization Address [facility] de Phone Number [facility] [address] [place] [address] * (ABNORMAL) CALCIUM (05/15/2008 0:45 EST) Calcium 7.1(L) 8.5 - 10.5 mg/dl [facility] Calculated Calcium 8.9 8.5 - 10.5 mg/dl [facility] 05/15/2008 0:45 EST 05/15/2008 0:50 EST Jose Alejandro Castro MD CHEMISTRY & BLOOD GAS ORDERABLE S Final Result Performing Organization Address [facility] de Phone Number [facility] [address] [place] [address] * (ABNORMAL) ELECTROLYTES (05/15/2008 0:45 EST) Sodium 123(LL) 136 - 145 mEq/L [facility] Comment:Sample retested, res ult confirmed Potassium 3.5 3.5 - 5.0 mEq/L [facility] Chloride 90(L) 96 - 110 mEq/L [facility] CO2 26 24 - 32 mEq/L [facility] 05/15/2008 0:45 EST 05/15/2008 0:50 EST Jose Alejnadro Castro MD CHEMISTRY & BLOOD GAS ORDERABLE S Final Result [facility] [address] [place] [address] * GLUCOSE, SERUM (05/14/2008 22:10 EST) Glucose, Serum 88 70 - 100 mg/dl [facility] 05/14/2008 22:1 0 EST 05/14/2008 22:15 EST Jose Alejandro Castro MD CHEMISTRY & BLOOD GAS ORDERABLE S Final Result Performing Organization Address [facility] de Phone Number [facility] [address] [place] [address] * (ABNORMAL) ELECTROLYTES (05/14/2008 22:10 EST) Sodium [...] ORDERABLE S Final Result Performing Organization Address [facility] de Phone Number [facility] [address] [place] [address] * GLUCOSE, SERUM (05/14/2008 18:50 EST) Glucose, Serum 99 70 - 100 mg/dl [facility] 05/14/2008 18:5 0 EST 05/14/2008 18:59 EST Jose Alejandro Castro MD CHEMISTRY & BLOOD GAS ORDERABLE S Final Result Performing Organization Address [facility] Co de Phone Number [facility] [address] [place] [address] * (ABNORMAL) ELECTROLYTES (05/14/2008 18:50 EST) Sodium [...] ORDERABLE S Final Result Performing Organization Address [facility] Co de Phone Number [facility] [address] [place] [address] * (ABNORMAL) PHOSPHORUS (05/14/2008 16:26 EST) Phosphorus 1.7(L) 2.7 - 4.7 mg/dl [facility] 05/14/2008 16:2 6 EST 05/14/2008 16:26 EST Jose Alejandro Castro MD CHEMISTRY & BLOOD GAS ORDERABLE S Final Result Performing Organization Address [facility] de Phone Number [facility] [address] [place] [address] * (ABNORMAL) CALCIUM (05/14/2008 16:26 EST) Calcium 6.8(L) 8.5 - 10.5 mg/dl [facility] Calculated Calcium 8.6 8.5 - 10.5 mg/dl [facility] 05/14/2008 16:2 6 EST 05/14/2008 16:26 EST Jose Alejandro Castro MD CHEMISTRY & BLOOD GAS ORDERABLE S Final Result Performing Organization Address [facility] de Phone Number [facility] [address] [place] [address] * (ABNORMAL) GLUCOSE, SERUM (05/14/2008 16:26 EST) Glucose, Serum 107(H) 70 - 100 mg/dl [facility] 05/14/2008 16:2 6 EST 05/14/2008 16:26 EST Jose Alejandro Castro MD CHEMISTRY & BLOOD GAS ORDERABLE S Final Result Performing Organization Address [facility] Co de Phone Number [facility] [address] [place] [address] * (ABNORMAL) ELECTROLYTES (05/14/2008 16:26 EST) Sodium [...] ORDERABLE S Final Result Performing Organization Address [facility] Co de Phone Number [facility] [address] [place] [address] * C. DIFFICILE TOXIN (05/14/2008 13:55 EST) Specimen Description Feces [facility] Result No C.difficil e toxin A or toxin B detected. [facility] Report Status Final 05/14/2008 [facility] 05/14/2008 13:5 5 EST 05/14/2008 16:05 EST Jose Alejandro Castro MD MICROBIOLOGY - GENERAL ORDERABL ES Final Result Performing Organization Address [facility] Co de Phone Number [facility] [address] [place] [address] * GLUCOSE, SERUM (05/14/2008 10:21 EST) Glucose, Serum 74 70 - 100 mg/dl [facility] Comment:Heparinized plasma. 05/14/2008 10:2 1 EST 05/14/2008 10:21 EST Jose Alejandro Castro MD CHEMISTRY & BLOOD GAS ORDERABLE S Final Result Performing Organization Address [facility] de Phone Number [facility] [address] [place] [address] * (ABNORMAL) ELECTROLYTES (05/14/2008 10:21 EST) Sodium [...] ORDERABLE S Final Result Performing Organization Address [facility] de Phone Number [facility] [address] [place] [address] * (ABNORMAL) CALCIUM, IONIZED (05/14/2008 5:38 EST) Calcium, Ionized 1.00(L) 1.12 - 1.32 mmol/L [facility] acetone [place] [id number] Test performed by Chemistry [facility] 05/14/2008 5:38 EST 05/14/2008 5:49 EST Jose Alejandro Castro MD CHEMISTRY & BLOOD GAS ORDERABLE S Final Result Performing Organization Address [facility] de Phone Number [facility] [address] [place] [address] * CALCIUM IONIZED (05/14/2008 5:27 EST) Ionized Calcium Note Sample sent to Lab. [facility] 05/14/2008 5:27 EST 05/14/2008 5:27 EST Jose Alejandro Castro MD CHEMISTRY & BLOOD GAS ORDERABLE S Final Result Performing Organization Address [facility] Co de Phone Number [facility] [address] [place] [address] * (ABNORMAL) PHOSPHORUS (05/14/2008 4:07 EST) Phosphorus 2.0(L) 2.7 - 4.7 mg/dl [facility] 05/14/2008 4:07 EST 05/14/2008 4:07 EST Jose Alejandro Castro MD CHEMISTRY & BLOOD GAS ORDERABLE S Final Result Performing Organization Address [facility] de Phone Number [facility] [address] [place] [address] * (ABNORMAL) MAGNESIUM (05/14/2008 4:07 EST) Magnesium 1.5(L) 1.7 - 2.8 mg/dl [facility] 05/14/2008 4:07 EST 05/14/2008 4:07 EST Jose Alejandro Castro MD CHEMISTRY & BLOOD GAS ORDERABLE S Final Result Performing Organization Address [facility] de Phone Number [facility] [address] [place] [address] * (ABNORMAL) CALCIUM (05/14/2008 4:07 EST) Calcium 6.6(L) 8.5 - 10.5 mg/dl [facility] Calculated Calcium 8.7 8.5 - 10.5 mg/dl [facility] 05/14/2008 4:07 EST 05/14/2008 4:07 EST us Jose Alejandro Castro MD CHEMISTRY & BLOOD GAS ORDERABLE S Final Result Performing Organization Address [facility] Co de Phone Number [facility] [address] [place] [address] * (ABNORMAL) ELECTROLYTES (05/14/2008 4:07 EST) Sodium [...] ORDERABLE S Final Result Performing Organization Address [facility] Co de Phone Number [facility] [address] [place] [address] * (ABNORMAL) CREATININE (05/14/2008 4:07 EST) Creatinine 0.50(L) 0.6 - 1.2 mg/dl [facility] GFR, Calculated Age <18 ml/min/1.7 3m2 [facility] 05/14/2008 4:07 EST 05/14/2008 4:07 EST Jose Alejandro Castro MD CHEMISTRY & BLOOD GAS ORDERABLE S Final Result Performing Organization Address [facility] de Phone Number [facility] [address] [place] [address] * (ABNORMAL) BUN (05/14/2008 4:07 EST) BUN 7(L) 8 - 21 mg/dl [facility] 05/14/2008 4:07 EST 05/14/2008 4:07 EST Jose Alejandro Castro MD CHEMISTRY & BLOOD GAS ORDERABLE S Final Result Performing Organization Address [facility] de Phone Number [facility] [address] [place] [address] * (ABNORMAL) HEMAGRAM (05/14/2008 4:07 EST) WBC [...] Fin al Result [facility] [address] [place] [address] * GLUCOSE, GLUCOMETER (05/14/2008 4:04 EST) Glucose, Fingerstick 97 70 - 100 mg/dl [facility] Database Management System Specialist [place] [id number] Test Performed by Nursing Services [facility] 05/14/2008 4:04 EST 05/14/2008 23:15 EST Result [facility] Jose Alejandro Castro MD CHEMISTRY & BLOOD GAS ORDERABLE S Final Result Performing Organization Address [facility] Co de Phone Number [facility] [address] [place] [address] * (ABNORMAL) ELECTROLYTES (05/13/2008 22:11 EST) Sodium [...] ORDERABLE S Final Result Performing Organization Address [facility]/ZIP Co de Phone Number [facility] [address] [place] [address] * GLUCOSE, GLUCOMETER (05/13/2008 22:07 EST) Glucose, Fingerstick 93 70 - 100 mg/dl [facility] Database Management System Specialist ID [id number] Test Performed by Nursing Services [facility] 05/13/2008 22:0 7 EST 05/15/2008 8:34 EST Jose Alejandro Castro MD CHEMISTRY & BLOOD GAS ORDERABLE S Final Result Performing Organization Address [facility] de Phone Number [facility] [address] [place] [address] * XRAY FEEDING TUBE PLACEMENT (05/13/2008 21:33 [...] 70 - 100 mg/dl [facility] Database Management System Specialist [place] [id number] Test Performed by Nursing Services [facility] 05/13/2008 16:5 3 EST 05/15/2008 8:34 EST us Jose Alejandro Castro MD CHEMISTRY & BLOOD GAS ORDERABLE S Final Result Performing Organization Address [facility] Phone Number [facility] [address] [place] [address] * (ABNORMAL) ELECTROLYTES (05/13/2008 16:50 EST) Sodium [...] ORDERABLE S Final Result Performing Organization Address [facility] Phone Number [facility] [address] [place] [address] * SODIUM, URINE RANDOM (05/13/2008 13:00 EST) Sodium, Ur 130.0 mEq/L [facility] 05/13/2008 13:0 0 EST 05/13/2008 13:01 EST us Jose Alejandro Castro MD URINALYSIS ORDERABLES Final Res ult Performing Organization Address [facility] Phone Number [facility] [address] [place] [address] * MR HEAD W/WO CONTRAST (05/13/2008 11:47 [...] S Final Result [facility] [address] [place] [address] * (ABNORMAL) ALBUMIN (05/13/2008 10:00 EST) Albumin 2.2(L) 3.0 - 5.5 g/dl [facility] Comment:Sample retested, res ult confirmed 05/13/2008 10:0 0 EST 05/13/2008 10:23 EST us Jose Alejandro Castro MD CHEMISTRY & BLOOD GAS ORDERABLE S Final Result Performing Organization Address [facility] de Phone Number [facility] [address] [place] [address] * (ABNORMAL) ELECTROLYTES (05/13/2008 10:00 EST) Sodium [...] ORDERABLE S Final Result Performing Organization Address [facility] de Phone Number [facility] [address] [place] [address] * (ABNORMAL) BNP (05/13/2008 10:00 EST) BNP 653(H) <100 pg/ml [facility] 05/13/2008 10:0 0 EST 05/13/2008 10:23 EST Jose Alejandro Castro MD CHEMISTRY & BLOOD GAS ORDERABLE S Final Result Performing Organization Address [facility] de Phone Number [facility] [address] [place] [address] * (ABNORMAL) CALCIUM, IONIZED (05/13/2008 4:18 EST) Calcium, Ionized 1.09(L) 1.12 - 1.32 mmol/L [facility] [place] [id number] Test performed by Chemistry [facility] 05/13/2008 4:18 EST 05/13/2008 4:22 EST Jose Alejandro Castro MD CHEMISTRY & BLOOD GAS ORDERABLE S Final Result [facility] [address] [place] [address] * PORTABLE ABDOMEN 1 VIEW (05/13/2008 4:15 [...] (ABNORMAL) GLUCOSE, SERUM (05/13/2008 4:13 EST) Pathologist [facility] Glucose, Serum 126(H) 70 - 100 mg/dl [facility] 05/13/2008 4:13 EST 05/13/2008 4:13 EST Jose Alejandro Castro MD CHEMISTRY & BLOOD GAS ORDERABLE S Final Result [facility] [address] [place] [address] * PHOSPHORUS (05/13/2008 4:13 EST) Pathologist [facility] Phosphorus 2.8 2.7 - 4.7 mg/dl [facility] 05/13/2008 4:13 EST 05/13/2008 4:13 EST us Jose Alejandro Castro MD CHEMISTRY & BLOOD GAS ORDERABLE S Final Result [facility] [address] [place] [address] * (ABNORMAL) MAGNESIUM (05/13/2008 4:13 EST) Magnesium 1.5(L) 1.7 - 2.8 mg/dl [facility] 05/13/2008 4:13 EST 05/13/2008 4:13 EST Jose Alejandro Castro MD CHEMISTRY & BLOOD GAS ORDERABLE S Final Result Performing Organization Address [facility] Co de Phone Number [facility] [address] [place] [address] * CREATININE (05/13/2008 4:13 EST) Creatinine 0.70 0.6 - 1.2 mg/dl [facility] GFR, Calculated Age <18 ml/min/1.7 3m2 [facility] 05/13/2008 4:13 EST 05/13/2008 4:13 EST Jose Alejandro Casrto MD CHEMISTRY & BLOOD GAS ORDERABLE S Final Result Performing Organization Address [facility] Co de Phone Number [facility] [address] [place] [address] * BUN (05/13/2008 4:13 EST) BUN 12 8 - 21 mg/dl [facility] 05/13/2008 4:13 EST 05/13/2008 4:13 EST us Jose Alejandro Castro MD CHEMISTRY & BLOOD GAS ORDERABLE S Final Result Performing Organization Address City/[facility]/ZIP Co de Phone Number [facility] [address] [place] [address] * (ABNORMAL) ELECTROLYTES (05/13/2008 4:13 EST) Sodium 144 136 - 145 mEq/L [facility] Potassium 3.0(L) 3.5 - 5.0 mEq/L [facility] Chloride 108 96 - 110 mEq/L [facility] CO2 29 24 - 32 mEq/L [facility] 05/13/2008 4:13 EST 05/13/2008 4:13 EST Jose Alejandro Castro MD CHEMISTRY & BLOOD GAS ORDERABLE S Final Result Performing Organization Address [facility]/ZIP Co de Phone Number [facility] [address] [place] [address] * (ABNORMAL) HEMAGRAM AND DIFFERENTIAL (05/13/2008 4:13 [...] ORDERABLES Final Result [facility] [address] [place] [address] * CALCIUM IONIZED (05/13/2008 4:13 EST) Ionized Calcium Note Sample sent to Lab. [facility] 05/13/2008 4:13 EST 05/13/2008 4:13 EST Jose Alejandro Castro MD CHEMISTRY & BLOOD GAS ORDERABLE S Final Result Performing Organization Address [facility] Co de Phone Number [facility] [address] [place] [address] * (ABNORMAL) GLUCOSE, GLUCOMETER (05/13/2008 4:08 EST) Glucose, Fingerstick 141(H) 70 - 100 mg/dl [facility] Database Management System Specialist ID [id number] Test Performed by Nursing Services [facility] 05/13/2008 4:08 EST 05/15/2008 8:33 EST Jose Alejandro Castro MD CHEMISTRY & BLOOD GAS ORDERABLE S Final Result Performing Organization Address [facility] de Phone Number [facility] [address] [place] [address] * UA WITH MICROSCOPIC (05/13/2008 2:03 EST) Color, UA Straw [facility] Clarity, UA Clear [facility] Glucose, UA Norm NORM [facility] Bilirubin, UA Neg NEG TRUE [facility] Ketones, UA Neg NEG [facility] Specific [place], Urine 1.015 1.005 - 1.02 [facility] [...] ORDERABLES Final Res ult Performing Organization Address [facility] de Phone Number [facility] [address] [place] [address] * (ABNORMAL) ELECTROLYTES (05/12/2008 21:57 EST) Sodium [...] Performing Organization Address [facility] de Phone Number [facility] [address] [place] [address] * (ABNORMAL) GLUCOSE, GLUCOMETER (05/12/2008 21:49 EST) Glucose, Fingerstick 126(H) 70 - 100 mg/dl [facility] Database Management System Specialist ID [id number] Test Performed by Nursing Services [facility] 05/12/2008 21:4 9 EST 05/12/2008 23:19 EST us Jose Alejandro Castro MD CHEMISTRY & BLOOD GAS ORDERABLE S Final Result Performing Organization Address [facility] de Phone Number [facility] [address] [place] [address] * (ABNORMAL) GLUCOSE, GLUCOMETER (05/12/2008 16:06 EST) Glucose, Fingerstick 119(H) 70 - 100 mg/dl [facility] Database Management System Specialist ID [id number] Test Performed by Nursing Services [facility] 05/12/2008 16:0 6 EST 05/12/2008 23:19 EST Jose Alejandro Castro MD CHEMISTRY & BLOOD GAS ORDERABLE S Final Result Performing Organization Address [facility] de Phone Number [facility] [address] [place] [address] * (ABNORMAL) ELECTROLYTES (05/12/2008 16:05 EST) Sodium [...] ORDERABLE S Final Result Performing Organization Address [facility] de Phone Number [facility] [address] [place] [address] * (ABNORMAL) GLUCOSE, GLUCOMETER (05/12/2008 9:21 EST) Glucose, Fingerstick 133(H) 70 - 100 mg/dl [facility] Database Management System Specialist ID [id number] Test Performed by Nursing Services [facility] 05/12/2008 9:21 EST 05/12/2008 23:18 EST Jose Alejandro Castro MD CHEMISTRY & BLOOD GAS ORDERABLE S Final Result Performing Organization Address [facility] de Phone Number [facility] [address] [place] [address] * (ABNORMAL) ELECTROLYTES (05/12/2008 9:20 EST) Sodium 147(H) 136 - 145 mEq/L [facility] Potassium 3.2(L) 3.5 - 5.0 mEq/L [facility] Chloride 113(H) 96 - 110 mEq/L [facility] CO2 28 24 - 32 mEq/L [facility] 05/12/2008 9:20 EST 05/12/2008 9:30 EST Jose Alejandro Castro MD CHEMISTRY & BLOOD GAS ORDERABLE S Final Result Performing Organization Address [facility] de Phone Number [facility] [address] [place] [address] * CREATININE (05/12/2008 4:10 EST) Creatinine 0.70 0.6 - 1.2 mg/dl [facility] GFR, Calculated Age <18 ml/min/1.7 3m2 [facility] 05/12/2008 4:10 EST 05/12/2008 5:17 EST Jose Alejandro Castro MD CHEMISTRY & BLOOD GAS ORDERABLE S Final Result Performing Organization Address [facility] de Phone Number [facility] [address] [place] [address] * BUN (05/12/2008 4:10 EST) BUN 14 8 - 21 mg/dl [facility] 05/12/2008 4:10 EST 05/12/2008 5:17 EST us Jose Alejandro Castro MD CHEMISTRY & BLOOD GAS ORDERABLE S Final Result Performing Organization Address [facility] Co de Phone Number [facility] [address] [place] [address] * (ABNORMAL) ELECTROLYTES (05/12/2008 4:10 EST) Sodium [...] S Final Result [facility] [address] [place] [address] * (ABNORMAL) HEMAGRAM AND DIFFERENTIAL (05/12/2008 4:10 [...] PROBE ORDERABLES Final Result Performing Organization Address [facility] de Phone Number [facility] [address] [place] [address] * GLUCOSE, GLUCOMETER (05/11/2008 20:32 EST) Glucose, Fingerstick 87 70 - 100 mg/dl [facility] Database Management System Specialist ID [id number] Test Performed by Nursing Services [facility] 05/11/2008 20:3 2 EST 05/11/2008 23:32 EST Jose Alejandro Castro MD CHEMISTRY & BLOOD GAS ORDERABLE S Final Result Performing Organization Address [facility] Phone Number [facility] [address] [place] [address] * (ABNORMAL) ELECTROLYTES (05/11/2008 20:30 EST) Sodium [...] ORDERABLE S Final Result Performing Organization Address [facility] Phone Number [facility] [address] [place] [address] * MRSA MOLECULAR DETECTION (05/11/2008 18:42 EST) Specimen Description Nares [facility] Result NEGATIVE for Methicillin Resistant Staphylococcus aureus DNA by PCR. [facility] Report Status Final 05/12/2008 [facility] 05/11/2008 18:4 2 EST 05/11/2008 18:42 EST Jose Alejandro Castro MD MICROBIOLOGY - GENERAL ORDERABL ES Final Result Performing Organization Address [facility] de Phone Number [facility] [address] [place] [address] * (ABNORMAL) GLUCOSE, SERUM (05/11/2008 15:17 EST) Glucose, Serum 174(H) 70 - 100 mg/dl [facility] 05/11/2008 15:1 7 EST 05/11/2008 15:17 EST Jose Alejandro Castro MD CHEMISTRY & BLOOD GAS ORDERABLE S Final Result Performing Organization Address [facility] de Phone Number [facility] [address] [place] [address] * ELECTROLYTES (05/11/2008 15:17 EST) Pathologist [facility] Sodium 139 136 - 145 mEq/L [facility] Potassium 4.1 3.5 - 5.0 mEq/L [facility] Chloride 107 96 - 110 mEq/L [facility] CO2 26 24 - 32 mEq/L [facility] 05/11/2008 15:1 7 EST 05/11/2008 15:17 EST Jose Alejandro Castro MD CHEMISTRY & BLOOD GAS ORDERABLE S Final Result Performing Organization Address [facility] Phone Number [facility] [address] [place] [address] * XRAY FEEDING TUBE PLACEMENT (05/11/2008 11:27 [...] S Final Result [facility] [address] [place] [address] * ELECTROLYTES (05/11/2008 8:18 EST) Sodium 140 [...] ORDERABLE S Final Result Performing Organization Address [facility]/ZIP Co de Phone Number [facility] [address] [place] [address] * CALCIUM, IONIZED (05/11/2008 4:07 EST) Calcium, Ionized 1.19 1.12 - 1.32 mmol/L [facility] acetone [place] [id number] Test performed by Chemistry [facility] 05/11/2008 4:07 EST 05/11/2008 4:14 EST Jose Alejandro Castro MD CHEMISTRY & BLOOD GAS ORDERABLE S Final Result Performing Organization Address [facility] Co de Phone Number [facility] [address] [place] [address] * (ABNORMAL) GLUCOSE, SERUM (05/11/2008 3:55 EST) Glucose, Serum 126(H) 70 - 100 mg/dl [facility] 05/11/2008 3:55 EST 05/11/2008 4:01 EST Jose Alejandro Castro MD CHEMISTRY & BLOOD GAS ORDERABLE S Final Result Performing Organization Address [facility] Co de Phone Number [facility] [address] [place] [address] * PHOSPHORUS (05/11/2008 3:55 EST) Phosphorus 2.9 2.7 - 4.7 mg/dl [facility] 05/11/2008 3:55 EST 05/11/2008 4:01 EST us Jose Alejandro Castro MD CHEMISTRY & BLOOD GAS ORDERABLE S Final Result Performing Organization Address City/[facility] Co de Phone Number [facility] [address] [place] [address] * MAGNESIUM (05/11/2008 3:55 EST) Magnesium 1.7 1.7 - 2.8 mg/dl [facility] 05/11/2008 3:55 EST 05/11/2008 4:01 EST Jose Alejandro Castro MD CHEMISTRY & BLOOD GAS ORDERABLE S Final Result Performing Organization Address City/[facility]/ZIP Co de Phone Number [facility] [address] [place] [address] * CREATININE (05/11/2008 3:55 EST) Creatinine 0.60 0.6 - 1.2 mg/dl [facility] GFR, Calculated Age <18 ml/min/1.7 3m2 [facility] 05/11/2008 3:55 EST 05/11/2008 4:01 EST Jose Alejandro Castro MD CHEMISTRY & BLOOD GAS ORDERABLE S Final Result Performing Organization Address City/[facility] Co de Phone Number [facility] [address] [place] [address] * BUN (05/11/2008 3:55 EST) BUN 17 8 - 21 mg/dl [facility] 05/11/2008 3:55 EST 05/11/2008 4:01 EST Jose Alejandro Castro MD CHEMISTRY & BLOOD GAS ORDERABLE S Final Result Performing Organization Address City/[facility]/ZIP Co de Phone Number [facility] [address] [place] [address] * ELECTROLYTES (05/11/2008 3:55 EST) Sodium 139 136 - 145 mEq/L [facility] Potassium 4.0 3.5 - 5.0 mEq/L [facility] Chloride 107 96 - 110 mEq/L [facility] CO2 25 24 - 32 mEq/L [facility] 05/11/2008 3:55 EST 05/11/2008 4:01 EST us Jose Alejandro Castro MD CHEMISTRY & BLOOD GAS ORDERABLE S Final Result Performing Organization Address City/[facility]/ZIP Co de Phone Number [facility] [address] [place] [address] * (ABNORMAL) HEMAGRAM AND DIFFERENTIAL (05/11/2008 3:55 [...] PROBE ORDERABLES Final Result Performing Organization Address City/[facility]/ZIP Co de Phone Number [facility] [address] [place] [address] * CALCIUM IONIZED (05/11/2008 3:55 EST) Ionized Calcium Note Sample sent to Lab. [facility] 05/11/2008 3:55 EST 05/11/2008 4:01 EST Jose Alejandro Castro MD CHEMISTRY & BLOOD GAS ORDERABLE S Final Result Performing Organization Address [facility] de Phone Number [facility] [address] [place] [address] * CALCIUM, IONIZED (05/11/2008 0:56 EST) Calcium, Ionized 1.21 1.12 - 1.32 mmol/L [facility] [place] [id number] Test performed by Chemistry [facility] 05/11/2008 0:56 EST 05/11/2008 0:59 EST Jose Alejandro Castro MD CHEMISTRY & BLOOD GAS ORDERABLE S Final Result Performing Organization Address [facility] Phone Number [facility] [address] [place] [address] * (ABNORMAL) GLUCOSE, SERUM (05/11/2008 0:20 EST) Glucose, Serum 131(H) 70 - 100 mg/dl [facility] 05/11/2008 0:20 EST 05/11/2008 0:36 EST Jose Alejandro Castro MD CHEMISTRY & BLOOD GAS ORDERABLE S Final Result Performing Organization Address [facility] de Phone Number [facility] [address] [place] [address] * PHOSPHORUS (05/11/2008 0:20 EST) Phosphorus 2.9 2.7 - 4.7 mg/dl [facility] 05/11/2008 0:20 EST 05/11/2008 0:36 EST us Jose Alejandro Castro MD CHEMISTRY & BLOOD GAS ORDERABLE S Final Result Performing Organization Address City/[facility] de Phone Number [facility] [address] [place] [address] * MAGNESIUM (05/11/2008 0:20 EST) Magnesium 1.7 1.7 - 2.8 mg/dl [facility] 05/11/2008 0:20 EST 05/11/2008 0:36 EST Jose Alejandro Castro MD CHEMISTRY & BLOOD GAS ORDERABLE S Final Result Performing Organization Address [facility] de Phone Number [facility] [address] [place] [address] * ELECTROLYTES (05/11/2008 0:20 EST) Sodium 139 136 - 145 mEq/L [facility] Potassium 4.2 3.5 - 5.0 mEq/L [facility] Chloride 105 96 - 110 mEq/L [facility] CO2 28 24 - 32 mEq/L [facility] 05/11/2008 0:20 EST 05/11/2008 0:36 EST Jose Alejandro Castro MD CHEMISTRY & BLOOD GAS ORDERABLE S Final Result Performing Organization Address [facility] Phone Number [facility] [address] [place] [address] * CALCIUM IONIZED (05/11/2008 0:20 EST) Ionized Calcium Note Sample sent to Lab. [facility] 05/11/2008 0:20 EST 05/11/2008 0:36 EST Jose Alejandro Castro MD CHEMISTRY & BLOOD GAS ORDERABLE S Final Result Performing Organization Address [facility] de Phone Number [facility] [address] [place] [address] * CALCIUM, IONIZED (05/10/2008 20:18 EST) Calcium, Ionized 1.19 1.12 - 1.32 mmol/L [facility] [place] [id number] Test performed by Chemistry [facility] 05/10/2008 20:1 8 EST 05/10/2008 20:20 EST us Jose Alejandro Castro MD CHEMISTRY & BLOOD GAS ORDERABLE S Final Result [facility] [address] [place] [address] * (ABNORMAL) GLUCOSE, SERUM (05/10/2008 19:55 EST) Glucose, Serum 126(H) 70 - 100 mg/dl [facility] 05/10/2008 19:5 5 EST 05/10/2008 20:02 EST us Jose Alejandro Castro MD CHEMISTRY & BLOOD GAS ORDERABLE S Final Result Performing Organization Address [facility] Co de Phone Number [facility] [address] [place] [address] * PHOSPHORUS (05/10/2008 19:55 EST) Phosphorus 2.7 2.7 - 4.7 mg/dl [facility] 05/10/2008 19:5 5 EST 05/10/2008 20:02 EST us Jose Alejandro Castro MD CHEMISTRY & BLOOD GAS ORDERABLE S Final Result Performing Organization Address [facility] Co de Phone Number [facility] [address] [place] [address] * MAGNESIUM (05/10/2008 19:55 EST) Magnesium 1.7 1.7 - 2.8 mg/dl [facility] 05/10/2008 19:5 5 EST 05/10/2008 20:02 EST us Jose Alejandro Castro MD CHEMISTRY & BLOOD GAS ORDERABLE S Final Result Performing Organization Address City/[facility]/ZIP Co de Phone Number [facility] [address] [place] [address] * ELECTROLYTES (05/10/2008 19:55 EST) Sodium 136 [...] S Final Result [facility] [address] [place] [address] * (ABNORMAL) HEMAGRAM AND DIFFERENTIAL (05/10/2008 19:55 [...] DNA PROBE ORDERABLES Final Result [facility] [address] [place] [address] * CALCIUM IONIZED (05/10/2008 19:55 EST) Ionized Calcium Note Sample sent to Lab. [facility] 05/10/2008 19:5 5 EST 05/10/2008 20:02 EST Jose Alejandro Castro MD CHEMISTRY & BLOOD GAS ORDERABLE S Final Result Performing Organization Address City/[facility]/ZIP Co de Phone Number [facility] [address] [place] [address] * CALCIUM, IONIZED (05/10/2008 16:34 EST) Calcium, Ionized 1.19 1.12 - 1.32 mmol/L [facility] [place] [id number] Test performed by Chemistry [facility] 05/10/2008 16:3 4 EST 05/10/2008 16:37 EST Jose Alejandro Castro MD CHEMISTRY & BLOOD GAS ORDERABLE S Final Result Performing Organization Address [facility] Co de Phone Number [facility] [address] [place] [address] * (ABNORMAL) GLUCOSE, SERUM (05/10/2008 16:23 EST) Glucose, Serum 109(H) 70 - 100 mg/dl [facility] 05/10/2008 16:2 3 EST 05/10/2008 16:23 EST Jose Alejandro Castro MD CHEMISTRY & BLOOD GAS ORDERABLE S Final Result Performing Organization Address City/[facility] Co de Phone Number [facility] [address] [place] [address] * PHOSPHORUS (05/10/2008 16:23 EST) Phosphorus 3.1 2.7 - 4.7 mg/dl [facility] 05/10/2008 16:2 3 EST 05/10/2008 16:23 EST us Jose Alejandro Castro MD CHEMISTRY & BLOOD GAS ORDERABLE S Final Result Performing Organization Address [facility] de Phone Number [facility] [address] [place] [address] * MAGNESIUM (05/10/2008 16:23 EST) Magnesium 1.7 1.7 - 2.8 mg/dl [facility] 05/10/2008 16:2 3 EST 05/10/2008 16:23 EST us Jose Alejandro Castro MD CHEMISTRY & BLOOD GAS ORDERABLE S Final Result Performing Organization Address [facility] de Phone Number [facility] [address] [place] [address] * (ABNORMAL) ELECTROLYTES (05/10/2008 16:23 EST) Sodium [...] ORDERABLE S Final Result Performing Organization Address [facility] de Phone Number [facility] [address] [place] [address] * CALCIUM IONIZED (05/10/2008 16:23 EST) Ionized Calcium Note Sample sent to Lab. [facility] 05/10/2008 16:2 3 EST 05/10/2008 16:23 EST us Jose Alejandro Castro MD CHEMISTRY & BLOOD GAS ORDERABLE S Final Result Performing Organization Address [facility] Co de Phone Number [facility] [address] [place] [address] * (ABNORMAL) GLUCOSE, GLUCOMETER (05/10/2008 16:16 EST) Glucose, Fingerstick 126(H) 70 - 100 mg/dl [facility] Database Management System Specialist ID [id number] Test Performed by Nursing Services [facility] 05/10/2008 16:1 6 EST 05/10/2008 23:15 EST us Jose Alejandro Castro MD CHEMISTRY & BLOOD GAS ORDERABLE S Final Result Performing Organization Address [facility] de Phone Number [facility] [address] [place] [address] * (ABNORMAL) BLOOD GAS, G3 ISTAT (05/10/2008 13:08 EST) pH, i-STAT 7.42 7.35 - 7.45 [facility] pCO2, i-STAT 38 35 - 45 mmHg [facility] pO2, i-STAT 31(L) 85 - 100 mmHg [facility] TCO2, i-STAT 26 mEq/L [facility] O2 Saturation 67 % [facility] Base Excess 0 [facility] Temperature 35.3 C [facility] FIO2 21 [facility] Sample Type VENOUS [facility] acetone button paster ID [id number] Test Performed by Respiratory [facility] 05/10/2008 13:0 8 EST 05/10/2008 13:17 EST us Jose Alejandro Castro MD CHEMISTRY & BLOOD GAS ORDERABLE S Final Result Performing Organization Address [facility] de Phone Number [facility] [address] [place] [address] * SODIUM, URINE RANDOM (05/10/2008 12:27 EST) Sodium, Ur 65.0 mEq/L [facility] 05/10/2008 12:2 7 EST 05/10/2008 12:30 EST Jose Alejandro Castro MD URINALYSIS ORDERABLES Final Res ult Performing Organization Address [facility] Co de Phone Number [facility] [address] [place] [address] * CALCIUM, IONIZED (05/10/2008 12:27 EST) Calcium, Ionized 1.19 1.12 - 1.32 mmol/L [facility] [id number] Test performed by Chemistry [facility] 05/10/2008 12:2 7 EST 05/10/2008 12:53 EST us Jose Alejandro Castro MD CHEMISTRY & BLOOD GAS ORDERABLE S Final Result Performing Organization Address [facility] de Phone Number [facility] [address] [place] [address] * (ABNORMAL) GLUCOSE, GLUCOMETER (05/10/2008 12:03 EST) Glucose, Fingerstick 120(H) 70 - 100 mg/dl [facility] Database Management System Specialist ID [id number] Test Performed by Nursing Services [facility] 05/10/2008 12:0 3 EST 05/10/2008 23:15 EST Jose Alejandro Castro MD CHEMISTRY & BLOOD GAS ORDERABLE S Final Result Performing Organization Address [facility] Co de Phone Number [facility] [address] [place] [address] * PHOSPHORUS (05/10/2008 11:28 EST) Phosphorus 2.9 2.7 - 4.7 mg/dl [facility] Comment:Heparinized plasma. 05/10/2008 11:2 8 EST 05/10/2008 12:14 EST Jose Alejandro Castro MD CHEMISTRY & BLOOD GAS ORDERABLE S Final Result Performing Organization Address [facility] Co de Phone Number [facility] [address] [place] [address] * MAGNESIUM (05/10/2008 11:28 EST) Pathologist [facility] Magnesium 1.8 1.7 - 2.8 mg/dl [facility] Comment:Heparinized plasma. 05/10/2008 11:2 8 EST 05/10/2008 12:14 EST Jose Alejandro Castro MD CHEMISTRY & BLOOD GAS ORDERABLE S Final Result Performing Organization Address [facility] Phone Number [facility] [address] [place] [address] * GLUCOSE, SERUM (05/10/2008 11:28 EST) Pathologist [facility] Glucose, Serum 97 70 - 100 mg/dl [facility] Comment:Heparinized plasma. 05/10/2008 11:2 8 EST 05/10/2008 12:14 EST Jose Alejandro Castro MD CHEMISTRY & BLOOD GAS ORDERABLE S Final Result Performing Organization Address [facility] Phone Number [facility] [address] [place] [address] * (ABNORMAL) ELECTROLYTES (05/10/2008 11:28 EST) [facility] Sodium 134(L) 136 - 145 mEq/L [...] ORDERABLE S Final Result Performing Organization Address [facility] Phone Number [facility] [address] [place] [address] * CALCIUM IONIZED (05/10/2008 11:28 EST) [facility] Ionized Calcium Note Sample sent to Lab. [facility] 05/10/2008 11:2 8 EST 05/10/2008 12:14 EST us Jose Alejandro Castro MD CHEMISTRY & BLOOD GAS ORDERABLE S Final Result Performing Organization Address [facility] de Phone Number [facility] [address] [place] [address] * GLUCOSE, GLUCOMETER (05/10/2008 9:44 EST) Glucose, Fingerstick 95 70 - 100 mg/dl [facility] Database Management System Specialist ID [id number] Test Performed by Nursing Services [facility] 05/10/2008 9:44 EST 05/10/2008 23:15 EST us Jose Alejandro Castro MD CHEMISTRY & BLOOD GAS ORDERABLE S Final Result Performing Organization Address [facility] de Phone Number [facility] [address] [place] [address] * CALCIUM, IONIZED (05/10/2008 8:33 EST) Calcium, Ionized 1.20 1.12 - 1.32 mmol/L [facility] [place] [id number] Test performed by Chemistry [facility] 05/10/2008 8:33 EST 05/10/2008 8:36 EST us Jose Alejandro Castro MD CHEMISTRY & BLOOD GAS ORDERABLE S Final Result Performing Organization Address [facility] de Phone Number [facility] [address] [place] [address] * (ABNORMAL) BLOOD GAS, CG4 ISTAT (05/10/2008 [...] [facility] Sample Type ARTERIAL [facility] acetone button paster ID [id number] Test Performed by Respiratory [facility] 05/10/2008 8:29 EST 05/10/2008 8:33 EST us Jose Alejandro Castro MD CHEMISTRY & BLOOD GAS ORDERABLE S Final Result Performing Organization Address [facility] Co de Phone Number [facility] [address] [place] [address] * TESTS ADDED BY PHONE (05/10/2008 8:28 EST) Tests to be added STAT MG[facility] Who Called JOSELUIS FOR DR TONIE [facility] Location Code M3 [facility] 05/10/2008 8:28 EST 05/10/2008 8:28 EST us Jose Alejandro Castro MD CHEMISTRY & BLOOD GAS ORDERABLE S Final Result Performing Organization Address [facility] de Phone Number [facility] [address] [place] [address] * (ABNORMAL) ELECTROLYTES (05/10/2008 8:28 EST) Sodium [...] ORDERABLE S Final Result Performing Organization Address [facility] de Phone Number [facility] [address] [place] [address] * CALCIUM IONIZED (05/10/2008 8:28 EST) Ionized Calcium Note Sample sent to Lab. [facility] 05/10/2008 8:28 EST 05/10/2008 8:28 EST us Jose Alejandro Castro MD CHEMISTRY & BLOOD GAS ORDERABLE S Final Result Performing Organization Address [facility] Co de Phone Number [facility] [address] [place] [address] * PHOSPHORUS (05/10/2008 8:28 EST) Phosphorus 3.1 2.7 - 4.7 mg/dl [facility] 05/10/2008 8:28 EST 05/10/2008 8:28 EST us Jose Alejandro Castro MD CHEMISTRY & BLOOD GAS ORDERABLE S Final Result Performing Organization Address [facility] Phone Number [facility] [address] [place] [address] * MAGNESIUM (05/10/2008 8:28 EST) Magnesium 1.8 1.7 - 2.8 mg/dl [facility] 05/10/2008 8:28 EST 05/10/2008 8:28 EST us Jose Alejandro Castro MD CHEMISTRY & BLOOD GAS ORDERABLE S Final Result Performing Organization Address [facility] de Phone Number [facility] [address] [place] [address] * (ABNORMAL) GLUCOSE, GLUCOMETER (05/10/2008 8:27 EST) Glucose, Fingerstick 102(H) 70 - 100 mg/dl [facility] Database Management System Specialist ID [id number] Test Performed by Nursing Services [facility] 05/10/2008 8:27 EST 05/10/2008 23:15 EST us Jose Alejandro Castro MD CHEMISTRY & BLOOD GAS ORDERABLE S Final Result [facility] [address] [place] [address] * (ABNORMAL) BLOOD GAS, G3 ISTAT (05/10/2008 [...] [facility] Sample Type VENOUS [facility] acetone button paster ID [id number] Test Performed by Respiratory [facility] 05/10/2008 8:19 EST 05/10/2008 8:33 EST us Jose Alejandro Castro MD CHEMISTRY & BLOOD GAS ORDERABLE S Final Result Performing Organization Address City/State/[facility] Co de Phone Number [facility] [address] [place] [address] * PORTABLE CHEST 1 VIEW (05/10/2008 7:24 [...] 70 - 100 mg/dl [facility] Database Management System Specialist ID [id number] Test Performed by Nursing Services [facility] 05/10/2008 7:02 EST 05/10/2008 23:15 EST Jose Alejandro Castro MD CHEMISTRY & BLOOD GAS ORDERABLE S Final Result Performing Organization Address City/[facility] Co de Phone Number [facility] [address] [place] [address] * (ABNORMAL) GLUCOSE, GLUCOMETER (05/10/2008 6:11 EST) Glucose, Fingerstick 110(H) 70 - 100 mg/dl [facility] Database Management System Specialist ID [id number] Test Performed by Nursing Services [facility] 05/10/2008 6:11 EST 05/10/2008 23:15 EST Jose Alejandro Castro MD CHEMISTRY & BLOOD GAS ORDERABLE S Final Result Performing Organization Address City/[facility] Co de Phone Number [facility] [address] [place] [address] * CALCIUM, IONIZED (05/10/2008 5:24 EST) Calcium, Ionized 1.13 1.12 - 1.32 mmol/L [facility] [place] [id number] Test performed by Chemistry [facility] 05/10/2008 5:24 EST 05/10/2008 5:33 EST us Jose Alejandro Castro MD CHEMISTRY & BLOOD GAS ORDERABLE S Final Result [facility] [address] [place] [address] * (ABNORMAL) BLOOD GAS, G3 ISTAT (05/10/2008 [...] [facility] Sample Type VENOUS [facility] acetone button paster ID [id number] Test Performed by Respiratory [facility] 05/10/2008 5:04 EST 05/10/2008 5:38 EST us Jose Alejandro Castro MD CHEMISTRY & BLOOD GAS ORDERABLE S Final Result [facility] [address] [place] [address] * (ABNORMAL) GLUCOSE, GLUCOMETER (05/10/2008 5:02 EST) Glucose, Fingerstick 110(H) 70 - 100 mg/dl [facility] Database Management System Specialist ID [id number] Test Performed by Nursing Services [facility] 05/10/2008 5:02 EST 05/10/2008 23:15 EST us Jose Alejandro Castro MD CHEMISTRY & BLOOD GAS ORDERABLE S Final Result [facility] [address] [place] [address] * TROPONIN I (05/10/2008 5:00 EST) Troponin I pre 2011 0.19 ng/ml [facility] Comment: Reference Range: Normal: ??Less than 0.05 Indeterminate: ??0.05-0.80 Positive: ??Greater than 0.80 05/10/2008 5:00 EST 05/10/2008 5:11 EST Jose Alejandro Castro MD CHEMISTRY & BLOOD GAS ORDERABLE S Final Result Performing Organization Address [facility] de Phone Number [facility] [address] [place] [address] * (ABNORMAL) CK MB WITH TOTAL CK (05/10/2008 5:00 EST) CK 3,919 U/L [facility] MB 38.9(H) 0 - 5.0 ng/ml [facility] CK-MB Index 1.0 0 - 2.5 [facility] 05/10/2008 5:00 EST 05/10/2008 5:11 EST Jose Alejandro Castro MD CHEMISTRY & BLOOD GAS ORDERABLE S Final Result Performing Organization Address [facility] de Phone Number [facility] [address] [place] [address] * (ABNORMAL) TOTAL PROTEIN (05/10/2008 5:00 EST) Total Protein 4.2(L) 6.3 - 8.6 g/dl [facility] 05/10/2008 5:00 EST 05/10/2008 5:11 EST Jose Alejandro Castro MD CHEMISTRY & BLOOD GAS ORDERABLE S Final Result Performing Organization Address [facility] de Phone Number [facility] [address] [place] [address] * GLUCOSE, SERUM (05/10/2008 5:00 EST) Glucose, Serum 97 70 - 100 mg/dl [facility] 05/10/2008 5:00 EST 05/10/2008 5:11 EST Jose Alejandro Castro MD CHEMISTRY & BLOOD GAS ORDERABLE S Final Result Performing Organization Address [facility] Co de Phone Number [facility] [address] [place] [address] * PHOSPHORUS (05/10/2008 5:00 EST) Phosphorus 3.3 2.7 - 4.7 mg/dl [facility] 05/10/2008 5:00 EST 05/10/2008 5:11 EST Jose Alejandro Castro MD CHEMISTRY & BLOOD GAS ORDERABLE S Final Result Performing Organization Address [facility] de Phone Number [facility] [address] [place] [address] * MAGNESIUM (05/10/2008 5:00 EST) Magnesium 1.8 1.7 - 2.8 mg/dl [facility] 05/10/2008 5:00 EST 05/10/2008 5:11 EST Jose Alejandro Castro MD CHEMISTRY & BLOOD GAS ORDERABLE S Final Result Performing Organization Address [facility] Phone Number [facility] [address] [place] [address] * GGT (05/10/2008 5:00 EST) GGT 23 10 - 35 U/L [facility] 05/10/2008 5:00 EST 05/10/2008 5:11 EST Jose Alejandro Castro MD CHEMISTRY & BLOOD GAS ORDERABLE S Final Result Performing Organization Address [facility] Co de Phone Number [facility] [address] [place] [address] * CREATININE (05/10/2008 5:00 EST) Creatinine 0.70 0.6 - 1.2 mg/dl [facility] GFR, Calculated Age <18 ml/min/1.7 3m2 [facility] 05/10/2008 5:00 EST 05/10/2008 5:11 EST Jose Alejandro Castro MD CHEMISTRY & BLOOD GAS ORDERABLE S Final Result Performing Organization Address [facility] Co de Phone Number [facility] [address] [place] [address] * BUN (05/10/2008 5:00 EST) BUN 18 8 - 21 mg/dl [facility] 05/10/2008 5:00 EST 05/10/2008 5:11 EST Jose Alejandro Castro MD CHEMISTRY & BLOOD GAS ORDERABLE S Final Result Performing Organization Address [facility] Phone Number [facility] [address] [place] [address] * (ABNORMAL) AST (05/10/2008 5:00 EST) AST 202(H) 15 - 46 U/L [facility] [facility] 05/10/2008 5:00 EST 05/10/2008 5:11 EST Jose Alejandro Castro MD CHEMISTRY & BLOOD GAS ORDERABLE S Final Result Performing Organization Address [facility] Phone Number [facility] [address] [place] [address] * (ABNORMAL) ALT (05/10/2008 5:00 EST) ALT 82(H) 0 - 45 U/L [facility] 05/10/2008 5:00 EST 05/10/2008 5:11 EST us Jose Alejandro Castro MD CHEMISTRY & BLOOD GAS ORDERABLE S Final Result Performing Organization Address [facility] Co de Phone Number [facility] [address] [place] [address] * ALKALINE PHOSPHATASE (05/10/2008 5:00 EST) Alkaline Phosphatase 112 65 - 260 U/L [facility] 05/10/2008 5:00 EST 05/10/2008 5:11 EST Jose Alejandro Castro MD CHEMISTRY & BLOOD GAS ORDERABLE S Final Result Performing Organization Address [facility] de Phone Number [facility] [address] [place] [address] * (ABNORMAL) ALBUMIN (05/10/2008 5:00 EST) Pathologist [facility] Albumin 2.1(L) 3.0 - 5.5 g/dl [facility] 05/10/2008 5:00 EST 05/10/2008 5:11 EST Jose Alejandro Castro MD CHEMISTRY & BLOOD GAS ORDERABLE S Final Result Performing Organization Address [facility] Phone Number [facility] [address] [place] [address] * (ABNORMAL) ELECTROLYTES (05/10/2008 5:00 EST) Pathologist [facility] Sodium 134(L) 136 - 145 mEq/L [facility] Potassium 4.7 3.5 - 5.0 mEq/L [facility] Chloride 106 96 - 110 mEq/L [facility] CO2 24 24 - 32 mEq/L [facility] 05/10/2008 5:00 EST 05/10/2008 5:11 EST Jose Alejandro Castro MD CHEMISTRY & BLOOD GAS ORDERABLE S Final Result Performing Organization Address [facility] de Phone Number [facility] [address] [place] [address] * (ABNORMAL) HEMAGRAM AND DIFFERENTIAL (05/10/2008 5:00 EST) Pathologist [facility] WBC 24.49(H) 4.6 - 11.2 K/cmm [facility] [...] [facility] ABS Monocytes 0.49 K/cmm [facility] RBC Morphology 1+ Anisocytosis 1+ Microcytes 1+ Poikilocytosis [facility] WBC Morphology 1+ Toxic granulation [facility] Type of Diff: Manual [facility] 05/10/2008 5:00 EST 05/10/2008 5:11 EST Jose Alejandro Castro MD PACKAGES & DNA PROBE ORDERABLES Final Result Performing Organization Address [facility] de Phone Number [facility] [address] [place] [address] * (ABNORMAL) PTT (05/10/2008 5:00 EST) PTT 38(H) 20 - 35 secs [facility] Comment:Therapeutic Heparin range: 60-100 seconds 05/10/2008 5:00 EST 05/10/2008 5:11 EST Jose Alejandro Castro MD HEMATOLOGY & PF4 ORDERABLES Fin al Result Performing Organization Address [facility] Co de Phone Number [facility] [address] [place] [address] * (ABNORMAL) PROTIME (05/10/2008 5:00 EST) Pro [...] ORDERABLES Fin al Result Performing Organization Address [facility] de Phone Number [facility] [address] [place] [address] * CALCIUM IONIZED (05/10/2008 5:00 EST) Ionized Calcium Note Sample sent to Lab. [facility] 05/10/2008 5:00 EST 05/10/2008 5:11 EST Jose Alejandro Castro MD CHEMISTRY & BLOOD GAS ORDERABLE S Final Result Performing Organization Address [facility] de Phone Number [facility] [address] [place] [address] * (ABNORMAL) BLOOD GAS, CG4 ISTAT (05/10/2008 [...] Sample Type ARTERIAL ANISHA GARCIA Tech ID [id number] Test Performed by Respiratory [facility] 05/10/2008 4:59 EST 05/10/2008 5:38 EST Jose Alejandro Castro MD CHEMISTRY & BLOOD GAS ORDERABLE S Final Result Performing Organization Address City/[facility]/ZIP Co de Phone Number [facility] [address] [place] [address] * GLUCOSE, GLUCOMETER (05/10/2008 4:03 EST) Glucose, Fingerstick 87 70 - 100 mg/dl [facility] Database Management System Specialist ID [id number] Test Performed by Nursing Services [facility] 05/10/2008 4:03 EST 05/10/2008 23:15 EST Jose Alejandro Castro MD CHEMISTRY & BLOOD GAS ORDERABLE S Final Result Performing Organization Address [facility] Co de Phone Number [facility] [address] [place] [address] * (ABNORMAL) GLUCOSE, GLUCOMETER (05/10/2008 3:00 EST) Glucose, Fingerstick 68(L) 70 - 100 mg/dl [facility] Database Management System Specialist ID [id number] Test Performed by Nursing Services [facility] 05/10/2008 3:00 EST 05/10/2008 23:15 EST Jose Alejandro Castro MD CHEMISTRY & BLOOD GAS ORDERABLE S Final Result Performing Organization Address [facility] Co de Phone Number [facility] [address] [place] [address] * (ABNORMAL) GLUCOSE, GLUCOMETER (05/10/2008 2:03 EST) Glucose, Fingerstick 116(H) 70 - 100 mg/dl [facility] Database Management System Specialist ID [id number] Test Performed by Nursing Services [facility] 05/10/2008 2:03 EST 05/10/2008 23:15 EST Jose Alejandro Castro MD CHEMISTRY & BLOOD GAS ORDERABLE S Final Result Performing Organization Address City/[facility]/ZIP Co de Phone Number [facility] [address] [place] [address] * (ABNORMAL) BLOOD GAS, CG4 ISTAT (05/10/2008 [...] [facility] Sample Type ARTERIAL [facility] acetone button paster ID [id number] Test Performed by Respiratory [facility] 05/10/2008 1:22 EST 05/10/2008 1:26 EST Jose Alejandro Castro MD CHEMISTRY & BLOOD GAS ORDERABLE S Final Result [facility] [address] [place] [address] * (ABNORMAL) GLUCOSE, GLUCOMETER (05/10/2008 1:21 EST) Glucose, Fingerstick 130(H) 70 - 100 mg/dl [facility] Database Management System Specialist ID [id number] Test Performed by Nursing Services [facility] 05/10/2008 1:21 EST 05/10/2008 23:15 EST Jose Alejandro Castro MD CHEMISTRY & BLOOD GAS ORDERABLE S Final Result [facility] [address] [place] [address] * CALCIUM, IONIZED (05/10/2008 1:20 EST) Calcium, Ionized 1.15 1.12 - 1.32 mmol/L [facility] acetone [place] [id number] Test performed by Chemistry [facility] 05/10/2008 1:20 EST 05/10/2008 1:23 EST us Jose Alejandro Castro MD CHEMISTRY & BLOOD GAS ORDERABLE S Final Result [facility] [address] [place] [address] * (ABNORMAL) BLOOD GAS, G3 ISTAT (05/10/2008 [...] [facility] Sample Type VENOUS [facility] acetone button paster ID [id number] Test Performed by Respiratory [facility] 05/10/2008 1:17 EST 05/10/2008 1:26 EST us Jose Alejandro Castro MD CHEMISTRY & BLOOD GAS ORDERABLE S Final Result [facility] [address] [place] [address] * (ABNORMAL) BLOOD GAS, CG4 ISTAT (05/10/2008 [...] [facility] Sample Type ARTERIAL [facility] acetone button paster ID [id number] Test Performed by Respiratory [facility] 05/10/2008 1:12 EST 05/10/2008 1:26 EST us Jose Alejandro Castro MD CHEMISTRY & BLOOD GAS ORDERABLE S Final Result Performing Organization Address [facility] Phone Number [facility] [address] [place] [address] * PHOSPHORUS (05/10/2008 1:10 EST) Phosphorus 3.1 2.7 - 4.7 mg/dl [facility] 05/10/2008 1:10 EST 05/10/2008 1:17 EST Jose Alejandro Castro MD CHEMISTRY & BLOOD GAS ORDERABLE S Final Result Performing Organization Address [facility] Phone Number [facility] [address] [place] [address] * MAGNESIUM (05/10/2008 1:10 EST) Magnesium 1.9 1.7 - 2.8 mg/dl [facility] 05/10/2008 1:10 EST 05/10/2008 1:17 EST us Jose Alejandro Castro MD CHEMISTRY & BLOOD GAS ORDERABLE S Final Result Performing Organization Address [facility] Phone Number [facility] [address] [place] [address] * (ABNORMAL) ELECTROLYTES (05/10/2008 1:10 EST) Sodium [...] S Final Result [facility] [address] [place] [address] * CALCIUM IONIZED (05/10/2008 1:10 EST) Ionized Calcium Note Sample sent to Lab. [facility] 05/10/2008 1:10 EST 05/10/2008 1:17 EST Jose Alejandro Castro MD CHEMISTRY & BLOOD GAS ORDERABLE S Final Result Performing Organization Address City/[facility]/ZIP Co de Phone Number [facility] [address] [place] [address] * (ABNORMAL) GLUCOSE, GLUCOMETER (05/10/2008 0:20 EST) Glucose, Fingerstick 115(H) 70 - 100 mg/dl [facility] Database Management System Specialist ID [id number] Test Performed by Nursing Services [facility] 05/10/2008 0:20 EST 05/10/2008 23:14 EST Jose Alejandro Castro MD CHEMISTRY & BLOOD GAS ORDERABLE S Final Result Performing Organization Address [facility] Co de Phone Number [facility] [address] [place] [address] * (ABNORMAL) GLUCOSE, GLUCOMETER (05/09/2008 23:03 EST) Glucose, Fingerstick 113(H) 70 - 100 mg/dl [facility] Database Management System Specialist ID [id number] Test Performed by Nursing Services [facility] 05/09/2008 23:0 3 EST 05/09/2008 23:14 EST Jose Alejandro Castro MD CHEMISTRY & BLOOD GAS ORDERABLE S Final Result Performing Organization Address City/[facility] Co de Phone Number [facility] [address] [place] [address] * (ABNORMAL) GLUCOSE, GLUCOMETER (05/09/2008 22:11 EST) Glucose, Fingerstick 118(H) 70 - 100 mg/dl [facility] Database Management System Specialist ID [id number] Test Performed by Nursing Services [facility] 05/09/2008 22:1 1 EST 05/09/2008 23:14 EST Jose Alejandro Castro MD CHEMISTRY & BLOOD GAS ORDERABLE S Final Result Performing Organization Address [facility] Phone Number [facility] [address] [place] [address] * (ABNORMAL) CALCIUM, IONIZED (05/09/2008 21:26 EST) Calcium, Ionized 1.08(L) 1.12 - 1.32 mmol/L [facility] acetone button [place]aster [place] [id number] Test performed by Chemistry [facility] 05/09/2008 21:2 6 EST 05/09/2008 21:29 EST Jose Alejandro Castro MD CHEMISTRY & BLOOD GAS ORDERABLE S Final Result Performing Organization Address [facility] Phone Number [facility] [address] [place] [address] * GLUCOSE, GLUCOMETER (05/09/2008 21:25 EST) Glucose, Fingerstick 87 70 - 100 mg/dl [facility] Database Management System Specialist ID [id number] Test Performed by Nursing Services [facility] 05/09/2008 21:2 5 EST 05/09/2008 23:14 EST Jose Alejandro Castro MD CHEMISTRY & BLOOD GAS ORDERABLE S Final Result Performing Organization Address [facility] de Phone Number [facility] [address] [place] [address] * (ABNORMAL) BLOOD GAS, G3 ISTAT (05/09/2008 [...] [facility] Sample Type VENOUS [facility] acetone button paster ID [id number] Test Performed by Respiratory [facility] 05/09/2008 21:1 5 EST 05/09/2008 21:25 EST Jose Alejandro Castro MD CHEMISTRY & BLOOD GAS ORDERABLE S Final Result Performing Organization Address [facility] de Phone Number [facility] [address] [place] [address] * PHOSPHORUS (05/09/2008 21:10 EST) Pathologist [facility] Phosphorus 2.9 2.7 - 4.7 mg/dl [facility] 05/09/2008 21:1 0 EST 05/09/2008 21:16 EST Jose Alejandro Castro MD CHEMISTRY & BLOOD GAS ORDERABLE S Final Result Performing Organization Address [facility] Phone Number [facility] [address] [place] [address] * MAGNESIUM (05/09/2008 21:10 EST) [facility] Magnesium 1.9 1.7 - 2.8 mg/dl [facility] 05/09/2008 21:1 0 EST 05/09/2008 21:16 EST Jose Alejandro Castro MD CHEMISTRY & BLOOD GAS ORDERABLE S Final Result Performing Organization Address [facility] de Phone Number [facility] [address] [place] [address] * (ABNORMAL) ELECTROLYTES (05/09/2008 21:10 EST) Sodium [...] ORDERABLE S Final Result Performing Organization Address [facility] Co de Phone Number [facility] [address] [place] [address] * CALCIUM IONIZED (05/09/2008 21:10 EST) Ionized Calcium Note Sample sent to Lab. [facility] 05/09/2008 21:1 0 EST 05/09/2008 21:16 EST us Jose Alejandro Castro MD CHEMISTRY & BLOOD GAS ORDERABLE S Final Result Performing Organization Address [facility] de Phone Number [facility] [address] [place] [address] * (ABNORMAL) BLOOD GAS, CG4 ISTAT (05/09/2008 [...] [facility] Sample Type ARTERIAL [facility] acetone button paster ID [id number] Test Performed by Respiratory [facility] 05/09/2008 21:0 9 EST 05/09/2008 21:25 EST us Jose Alejandro Castro MD CHEMISTRY & BLOOD GAS ORDERABLE S Final Result Performing Organization Address [facility] de Phone Number [facility] [address] [place] [address] * GLUCOSE, GLUCOMETER (05/09/2008 20:15 EST) Glucose, Fingerstick 94 70 - 100 mg/dl [facility] Database Management System Specialist ID [id number] Test Performed by Nursing Services [facility] 05/09/2008 20:1 5 EST 05/09/2008 23:14 EST Jose Alejandro Castro MD CHEMISTRY & BLOOD GAS ORDERABLE S Final Result Performing Organization Address [facility] Co de Phone Number [facility] [address] [place] [address] * GLUCOSE, GLUCOMETER (05/09/2008 19:03 EST) Glucose, Fingerstick 84 70 - 100 mg/dl [facility] Database Management System Specialist ID [id number] Test Performed by Nursing Services [facility] 05/09/2008 19:0 3 EST 05/09/2008 23:14 EST Jose Alejandro Castro MD CHEMISTRY & BLOOD GAS ORDERABLE S Final Result Performing Organization Address [facility] Co de Phone Number [facility] [address] [place] [address] * GLUCOSE, GLUCOMETER (05/09/2008 18:09 EST) Glucose, Fingerstick 72 70 - 100 mg/dl [facility] Database Management System Specialist ID [id number] Test Performed by Nursing Services [facility] 05/09/2008 18:0 9 EST 05/09/2008 23:14 EST Jose Alejandro Castro MD CHEMISTRY & BLOOD GAS ORDERABLE S Final Result Performing Organization Address [facility] de Phone Number [facility] [address] [place] [address] * CALCIUM, IONIZED (05/09/2008 17:20 EST) Calcium, Ionized 1.12 1.12 - 1.32 mmol/L [facility] acetone [place]aster [place] [id number] Test performed by Chemistry [facility] 05/09/2008 17:2 0 EST 05/09/2008 17:24 EST us Jose Alejandro Castro MD CHEMISTRY & BLOOD GAS ORDERABLE S Final Result Performing Organization Address [facility] Co de Phone Number [facility] [address] [place] [address] * (ABNORMAL) BLOOD GAS, CG4 ISTAT (05/09/2008 [...] [facility] Base Deficit 6 FLETCHE R [facility] Temperature 36.9 C [facility] FIO2 .25 [facility] Sample Type ARTERIAL [facility] acetone button paster ID [id number] Test Performed by Respiratory [facility] 05/09/2008 17:1 6 EST 05/09/2008 17:22 EST us Jose Alejandro Castro MD CHEMISTRY & BLOOD GAS ORDERABLE S Final Result Performing Organization Address [facility] de Phone Number [facility] [address] [place] [address] * (ABNORMAL) BLOOD GAS, G3 ISTAT (05/09/2008 [...] [facility] Sample Type VENOUS [facility] acetone button paster ID [id number] Test Performed by Respiratory [facility] 05/09/2008 17:0 9 EST 05/09/2008 17:22 EST Jose Alejandro Castro MD CHEMISTRY & BLOOD GAS ORDERABLE S Final Result [facility] [address] [place] [address] * GLUCOSE, GLUCOMETER (05/09/2008 17:06 EST) Glucose, Fingerstick 85 70 - 100 mg/dl [facility] Database Management [place] Specialist ID [id number] Test Performed by Nursing Services [facility] 05/09/2008 17:0 6 EST 05/09/2008 23:14 EST us Jose Alejandro Castro MD CHEMISTRY & BLOOD GAS ORDERABLE S Final Result Performing Organization Address [facility] Co de Phone Number [facility] [address] [place] [address] * GLUCOSE, SERUM (05/09/2008 17:00 EST) Glucose, Serum 72 70 - 100 mg/dl [facility] 05/09/2008 17:0 0 EST 05/09/2008 17:15 EST Jose Alejandro Castro MD CHEMISTRY & BLOOD GAS ORDERABLE S Final Result Performing Organization Address [facility] Co de Phone Number [facility] [address] [place] [address] * PHOSPHORUS (05/09/2008 17:00 EST) Phosphorus 2.9 2.7 - 4.7 mg/dl [facility] 05/09/2008 17:0 0 EST 05/09/2008 17:15 EST Jose Alejandro Castro MD CHEMISTRY & BLOOD GAS ORDERABLE S Final Result Performing Organization Address City/[facility]/ZIP Co de Phone Number [facility] [address] [place] [address] * MAGNESIUM (05/09/2008 17:00 EST) Magnesium 2.0 1.7 - 2.8 mg/dl [facility] 05/09/2008 17:0 0 EST 05/09/2008 17:15 EST Jose Alejandro Castro MD CHEMISTRY & BLOOD GAS ORDERABLE S Final Result Performing Organization Address City/[facility]/ZIP Co de Phone Number [facility] [address] [place] [address] * CREATININE (05/09/2008 17:00 EST) Pathologist [facility] Creatinine 0.80 0.6 - 1.2 mg/dl [facility] GFR, Calculated Age <18 ml/min/1.7 3m2 [facility] 05/09/2008 17:0 0 EST 05/09/2008 17:15 EST Jose Alejandro Castro MD CHEMISTRY & BLOOD GAS ORDERABLE S Final Result Performing Organization Address [facility] Co de Phone Number [facility] [address] [place] [address] * BUN (05/09/2008 17:00 EST) BUN 16 8 - 21 mg/dl [facility] 05/09/2008 17:0 0 EST 05/09/2008 17:15 EST Jose Alejandro Castro MD CHEMISTRY & BLOOD GAS ORDERABLE S Final Result Performing Organization Address [facility] de Phone Number [facility] [address] [place] [address] * (ABNORMAL) ELECTROLYTES (05/09/2008 17:00 EST) Sodium [...] ORDERABLE S Final Result Performing Organization Address [facility] Co de Phone Number [facility] [address] [place] [address] * CALCIUM IONIZED (05/09/2008 17:00 EST) Ionized Calcium Note Sample sent to Lab. [facility] 05/09/2008 17:0 0 EST 05/09/2008 17:15 EST us Jose Alejandro Castro MD CHEMISTRY & BLOOD GAS ORDERABLE S Final Result Performing Organization Address [facility] de Phone Number [facility] [address] [place] [address] * GLUCOSE, GLUCOMETER (05/09/2008 15:58 EST) Glucose, Fingerstick 85 70 - 100 mg/dl [facility] Database Management System Specialist ID [id number] Test Performed by Nursing Services [facility] 05/09/2008 15:5 8 EST 05/09/2008 23:14 EST us Jose Alejandro Castro MD CHEMISTRY & BLOOD GAS ORDERABLE S Final Result Performing Organization Address [facility] de Phone Number [facility] [address] [place] [address] * GLUCOSE, GLUCOMETER (05/09/2008 15:04 EST) Glucose, Fingerstick 83 70 - 100 mg/dl [facility] Database Management System Specialist ID [id number] Test Performed by Nursing Services [facility] 05/09/2008 15:0 4 EST 05/09/2008 23:14 EST us Jose Alejandro Castro MD CHEMISTRY & BLOOD GAS ORDERABLE S Final Result Performing Organization Address [facility]/ZIP Co de Phone Number [facility] [address] [place] [address] * GLUCOSE, GLUCOMETER (05/09/2008 14:05 EST) Glucose, Fingerstick 88 70 - 100 mg/dl [facility] Database Management System Specialist ID [id number] Test Performed by Nursing Services [facility] 05/09/2008 14:0 5 EST 05/09/2008 23:14 EST us Jose Alejandro Castro MD CHEMISTRY & BLOOD GAS ORDERABLE S Final Result Performing Organization Address [facility] Co de Phone Number [facility] [address] [place] [address] * (ABNORMAL) BLOOD GAS, G3 ISTAT (05/09/2008 [...] [facility] Sample Type VENOUS [facility] acetone button paster ID [id number] Test Performed by Respiratory [facility] 05/09/2008 13:2 6 EST 05/09/2008 13:30 EST us Jose Alejandro Castro MD CHEMISTRY & BLOOD GAS ORDERABLE S Final Result [facility] [address] [place] [address] * (ABNORMAL) CALCIUM, IONIZED (05/09/2008 13:21 EST) Calcium, Ionized 1.11(L) 1.12 - 1.32 mmol/L [facility] acetone button [place]aster ID [id number] Test performed by Chemistry [facility] 05/09/2008 13:2 1 EST 05/09/2008 13:30 EST Jose Alejandro Castro MD CHEMISTRY & BLOOD GAS ORDERABLE S Final Result Performing Organization Address [facility] Co de Phone Number [facility] [address] [place] [address] * (ABNORMAL) BLOOD GAS, CG4 ISTAT (05/09/2008 [...] [facility] Sample Type ARTERIAL [facility] acetone button paster ID [id number] Test Performed by Respiratory [facility] 05/09/2008 13:1 2 EST 05/09/2008 13:30 EST Jose Alejandro Castro MD CHEMISTRY & BLOOD GAS ORDERABLE S Final Result Performing Organization Address [facility] de Phone Number [facility] [address] [place] [address] * GLUCOSE, GLUCOMETER (05/09/2008 13:08 EST) Glucose, Fingerstick 94 70 - 100 mg/dl [facility] Database Management System Specialist ID [id number] Test Performed by Nursing Services [facility] 05/09/2008 13:0 8 EST 05/09/2008 23:14 EST Jose Alejandro Castro MD CHEMISTRY & BLOOD GAS ORDERABLE S Final Result Performing Organization Address [facility] Co de Phone Number [facility] [address] [place] [address] * GLUCOSE, SERUM (05/09/2008 13:00 EST) Glucose, Serum 87 70 - 100 mg/dl [facility] 05/09/2008 13:0 0 EST 05/09/2008 13:13 EST Jose Alejandro Castro MD CHEMISTRY & BLOOD GAS ORDERABLE S Final Result Performing Organization Address [facility] Phone Number [facility] [address] [place] [address] * PHOSPHORUS (05/09/2008 13:00 EST) Phosphorus 3.2 2.7 - 4.7 mg/dl [facility] 05/09/2008 13:0 0 EST 05/09/2008 13:13 EST Jose Alejandro Castro MD CHEMISTRY & BLOOD GAS ORDERABLE S Final Result Performing Organization Address [facility] Phone Number [facility] [address] [place] [address] * MAGNESIUM (05/09/2008 13:00 EST) Magnesium 1.9 1.7 - 2.8 mg/dl [facility] 05/09/2008 13:0 0 EST 05/09/2008 13:13 EST Jose Alejandro Castro MD CHEMISTRY & BLOOD GAS ORDERABLE S Final Result Performing Organization Address [facility] Phone Number [facility] [address] [place] [address] * (ABNORMAL) ELECTROLYTES (05/09/2008 13:00 EST) Sodium [...] ORDERABLE S Final Result Performing Organization Address City/[facility]/ZIP Co de Phone Number [facility] [address] [place] [address] * CALCIUM IONIZED (05/09/2008 13:00 EST) Ionized Calcium Note Sample sent to Lab. [facility] 05/09/2008 13:0 0 EST 05/09/2008 13:13 EST Jose Alejandro Castro MD CHEMISTRY & BLOOD GAS ORDERABLE S Final Result Performing Organization Address [facility]/ZIP Co de Phone Number [facility] [address] [place] [address] * (ABNORMAL) GLUCOSE, GLUCOMETER (05/09/2008 11:57 EST) Glucose, Fingerstick 104(H) 70 - 100 mg/dl [facility] Database Management System Specialist ID [id number] Test Performed by Nursing Services [facility] 05/09/2008 11:5 7 EST 05/09/2008 23:14 EST Jose Alejandro Castro MD CHEMISTRY & BLOOD GAS ORDERABLE S Final Result Performing Organization Address [facility] Co de Phone Number [facility] [address] [place] [address] * (ABNORMAL) GLUCOSE, GLUCOMETER (05/09/2008 11:07 EST) Glucose, Fingerstick 128(H) 70 - 100 mg/dl [facility] Database Management System Specialist ID [id number] Test Performed by Nursing Services [facility] 05/09/2008 11:0 7 EST 05/09/2008 23:14 EST Jose Alejandro Castro MD CHEMISTRY & BLOOD GAS ORDERABLE S Final Result Performing Organization Address City/[facility]/ZIP Co de Phone Number [facility] [address] [place] [address] * (ABNORMAL) GLUCOSE, GLUCOMETER (05/09/2008 10:17 EST) Glucose, Fingerstick 123(H) 70 - 100 mg/dl [facility] Database Management System Specialist ID [id number] Test Performed by Nursing Services [facility] 05/09/2008 10:1 7 EST 05/09/2008 23:14 EST Jose Alejandro Castro MD CHEMISTRY & BLOOD GAS ORDERABLE S Final Result Performing Organization Address [facility] Co de Phone Number [facility] [address] [place] [address] * SODIUM, URINE RANDOM (05/09/2008 10:17 EST) Sodium, Ur 99.0 mEq/L [facility] 05/09/2008 10:1 7 EST 05/09/2008 10:27 EST Jose Alejandro Castro MD URINALYSIS ORDERABLES Final Res ult Performing Organization Address [facility] de Phone Number [facility] [address] [place] [address] * (ABNORMAL) GLUCOSE, GLUCOMETER (05/09/2008 9:10 EST) Glucose, Fingerstick 105(H) 70 - 100 mg/dl [facility] Database Management System Specialist ID [id number] Test Performed by Nursing Services [facility] 05/09/2008 9:10 EST 05/09/2008 23:14 EST Jose Alejandro Castro MD CHEMISTRY & BLOOD GAS ORDERABLE S Final Result Performing Organization Address [facility] de Phone Number [facility] [address] [place] [address] * (ABNORMAL) CALCIUM, IONIZED (05/09/2008 8:24 EST) Calcium, Ionized 1.07(L) 1.12 - 1.32 mmol/L [facility] [place] [id number] Test performed by Chemistry [facility] 05/09/2008 8:24 EST 05/09/2008 8:27 EST us Jose Alejandro Castro MD CHEMISTRY & BLOOD GAS ORDERABLE S Final Result [facility] [address] [place] [address] * (ABNORMAL) BLOOD GAS, G3 ISTAT (05/09/2008 [...] [facility] Sample Type VENOUS [facility] acetone button paster ID [id number] Test Performed by Respiratory [facility] 05/09/2008 8:18 EST 05/09/2008 8:25 EST us Jose Alejandro Castro MD CHEMISTRY & BLOOD GAS ORDERABLE S Final Result [facility] [address] [place] [address] * (ABNORMAL) BLOOD GAS, CG4 ISTAT (05/09/2008 [...] [facility] Sample Type ARTERIAL [facility] acetone button paster ID [id number] Test Performed by Respiratory [facility] 05/09/2008 8:08 EST 05/09/2008 8:25 EST us Jose Alejandro Castro MD CHEMISTRY & BLOOD GAS ORDERABLE S Final Result Performing Organization Address [facility] de Phone Number [facility] [address] [place] [address] * (ABNORMAL) GLUCOSE, GLUCOMETER (05/09/2008 8:05 EST) Glucose, Fingerstick 109(H) 70 - 100 mg/dl [facility] Database Management System Specialist ID [id number] Test Performed by Nursing Services [facility] 05/09/2008 8:05 EST 05/09/2008 23:14 EST us Jose Alejandro Castro MD CHEMISTRY & BLOOD GAS ORDERABLE S Final Result Performing Organization Address [facility] Phone Number [facility] [address] [place] [address] * (ABNORMAL) GLUCOSE, SERUM (05/09/2008 8:00 EST) Glucose, Serum 103(H) 70 - 100 mg/dl [facility] Comment:Heparinized plasma. 05/09/2008 8:00 EST 05/09/2008 8:19 EST us Jose Alejandro Castro MD CHEMISTRY & BLOOD GAS ORDERABLE S Final Result Performing Organization Address [facility] de Phone Number [facility] [address] [place] [address] * PHOSPHORUS (05/09/2008 8:00 EST) Phosphorus 3.2 2.7 - 4.7 mg/dl [facility] Comment:Heparinized plasma. 05/09/2008 8:00 EST 05/09/2008 8:19 EST us Jose Alejandro Castro MD CHEMISTRY & BLOOD GAS ORDERABLE S Final Result Performing Organization Address [facility] Co de Phone Number [facility] [address] [place] [address] * MAGNESIUM (05/09/2008 8:00 EST) Pathologist [facility] Magnesium 1.7 1.7 - 2.8 mg/dl [facility] Comment:Heparinized plasma. 05/09/2008 8:00 EST 05/09/2008 8:19 EST Jose Alejandro Castro MD CHEMISTRY & BLOOD GAS ORDERABLE S Final Result Performing Organization Address [facility] Phone Number [facility] [address] [place] [address] * (ABNORMAL) ELECTROLYTES (05/09/2008 8:00 EST) Pathologist [facility] Sodium 133(L) 136 - 145 mEq/L [facility] [...] ORDERABLE S Final Result Performing Organization Address [facility] Phone Number [facility] [address] [place] [address] * CALCIUM IONIZED (05/09/2008 8:00 EST) Pathologist [facility] Ionized Calcium Note Sample sent to Lab. [facility] 05/09/2008 8:00 EST 05/09/2008 8:19 EST Jose Alejandro Castro MD CHEMISTRY & BLOOD GAS ORDERABLE S Final Result Performing Organization Address [facility] de Phone Number [facility] [address] [place] [address] * PORTABLE CHEST 1 VIEW (05/09/2008 7:15 [...] 70 - 100 mg/dl [facility] Database Management System Specialist ID [id number] Test Performed by Nursing Services [facility] 05/09/2008 7:00 EST 05/09/2008 23:14 EST Jose Alejandro Castro MD CHEMISTRY & BLOOD GAS ORDERABLE S Final Result Performing Organization Address [facility] de Phone Number [facility] [address] [place] [address] * GLUCOSE, GLUCOMETER (05/09/2008 6:03 EST) Glucose, Fingerstick 78 70 - 100 mg/dl [facility] Database Management System Specialist ID [id number] Test Performed by Nursing Services [facility] 05/09/2008 6:03 EST 05/09/2008 23:14 EST Jose Alejandro Castro MD CHEMISTRY & BLOOD GAS ORDERABLE S Final Result Performing Organization Address [facility] Phone Number [facility] [address] [place] [address] * TROPONIN I (05/09/2008 5:20 EST) Troponin I pre 2012 0.73 ng/ml [facility] Comment: Reference Range: Normal: ??Less than 0.05 Indeterminate: ??0.05-0.80 Positive: ??Greater than 0.80 05/09/2008 5:20 EST 05/09/2008 5:23 EST Jose Alejandro Castro MD CHEMISTRY & BLOOD GAS ORDERABLE S Final Result Performing Organization Address [facility] de Phone Number [facility] [address] [place] [address] * (ABNORMAL) CK MB WITH TOTAL CK (05/09/2008 5:20 EST) CK 6,434 U/L [facility] MB 125.6(H) 0 - 5.0 ng/ml [facility] CK-MB Index 2.0 0 - 2.5 [facility] 05/09/2008 5:20 EST 05/09/2008 5:23 EST Jose Alejandro Castro MD CHEMISTRY & BLOOD GAS ORDERABLE S Final Result Performing Organization Address [facility] de Phone Number [facility] [address] [place] [address] * (ABNORMAL) GLUCOSE, GLUCOMETER (05/09/2008 5:00 EST) Glucose, Fingerstick 119(H) 70 - 100 mg/dl [facility] Database Management System Specialist ID [id number] Test Performed by Nursing Services [facility] 05/09/2008 5:00 EST 05/09/2008 23:14 EST Jose Alejandro Castro MD CHEMISTRY & BLOOD GAS ORDERABLE S Final Result Performing Organization Address [facility] de Phone Number [facility] [address] [place] [address] * (ABNORMAL) CALCIUM, IONIZED (05/09/2008 4:27 EST) Calcium, Ionized 1.05(L) 1.12 - 1.32 mmol/L [facility] acetone button [place]aster [place] [id number] Test performed by Chemistry [facility] 05/09/2008 4:27 EST 05/09/2008 4:31 EST Jose Alejandro Castro MD CHEMISTRY & BLOOD GAS ORDERABLE S Final Result Performing Organization Address [facility] de Phone Number [facility] [address] [place] [address] * (ABNORMAL) BLOOD GAS, G3 ISTAT (05/09/2008 4:19 EST) pH, i-STAT 7.33(L) 7.35 - 7.45 [facility] pCO2, i-STAT 35 35 - 45 mmHg [facility] pO2, i-STAT 52(L) 85 - 100 mmHg [facility] TCO2, i-STAT 20 mEq/L FRANKIE oHffman [facility] O2 Saturation 85 % TRUE [facility] Base Deficit 7 FLEMARSHAE R [facility] Temperature 36.4 C [facility] FIO2 .40 [facility] Sample Type VENOUS [facility]IS[facility] acetone button paster ID [id number] Test Performed by Respiratory [facility] 05/09/2008 4:19 EST 05/09/2008 4:22 EST Jose Alejandro Castro MD CHEMISTRY & BLOOD GAS ORDERABLE S Final Result Performing Organization Address [facility] Co de Phone Number [facility] [address] [place] [address] * (ABNORMAL) BLOOD GAS, CG4 ISTAT (05/09/2008 [...] [facility] Sample Type ARTERIAL [facility] acetone button paster ID [id number] Test Performed by Respiratory [facility] 05/09/2008 4:13 EST 05/09/2008 4:22 EST Jose Alejandro Castro MD CHEMISTRY & BLOOD GAS ORDERABLE S Final Result Performing Organization Address [facility] Co de Phone Number [facility] [address] [place] [address] * (ABNORMAL) GLUCOSE, GLUCOMETER (05/09/2008 4:10 EST) Glucose, Fingerstick 112(H) 70 - 100 mg/dl [facility] Database Management System Specialist ID [id number] Test Performed by Nursing Services [facility] 05/09/2008 4:10 EST 05/09/2008 23:14 EST Jose Alejandro Castro MD CHEMISTRY & BLOOD GAS ORDERABLE S Final Result Performing Organization Address [facility] Phone Number [facility] [address] [place] [address] * (ABNORMAL) AST (05/09/2008 4:10 EST) AST 273(H) 15 - 46 U/L [facility] Comment:Sample retested, res ult confirmed 05/09/2008 4:10 EST 05/09/2008 4:17 EST Jose Alejandro Castro MD CHEMISTRY & BLOOD GAS ORDERABLE S Final Result Performing Organization Address [facility] Phone Number [facility] [address] [place] [address] * (ABNORMAL) PTT (05/09/2008 4:10 EST) PTT 42(H) 20 - 35 secs [facility] Comment:Therapeutic Heparin range: 60-100 seconds 05/09/2008 4:10 EST 05/09/2008 4:17 EST Jose Alejandro Castro MD HEMATOLOGY & PF4 ORDERABLES Fin al Result Performing Organization Address [facility] Phone Number [facility] [address] [place] [address] * (ABNORMAL) PROTIME (05/09/2008 4:10 EST) Pro [...] ORDERABLES Fin al Result Performing Organization Address [facility] Co de Phone Number [facility] [address] [place] [address] * (ABNORMAL) GLUCOSE, SERUM (05/09/2008 4:10 EST) Glucose, Serum 101(H) 70 - 100 mg/dl [facility] 05/09/2008 4:10 EST 05/09/2008 4:17 EST Jose Alejandro Castro MD CHEMISTRY & BLOOD GAS ORDERABLE S Final Result Performing Organization Address [facility] Phone Number [facility] [address] [place] [address] * PHOSPHORUS (05/09/2008 4:10 EST) Phosphorus 3.1 2.7 - 4.7 mg/dl [facility] 05/09/2008 4:10 EST 05/09/2008 4:17 EST Jose Alejandro Castro MD CHEMISTRY & BLOOD GAS ORDERABLE S Final Result Performing Organization Address [facility] Phone Number [facility] [address] [place] [address] * MAGNESIUM (05/09/2008 4:10 EST) Magnesium 1.8 1.7 - 2.8 mg/dl [facility] 05/09/2008 4:10 EST 05/09/2008 4:17 EST Jose Alejandro Castro MD CHEMISTRY & BLOOD GAS ORDERABLE S Final Result Performing Organization Address [facility] de Phone Number [facility] [address] [place] [address] * GGT (05/09/2008 4:10 EST) GGT 34 10 - 35 U/L [facility] 05/09/2008 4:10 EST 05/09/2008 4:17 EST us Jose Alejandro Castro MD CHEMISTRY & BLOOD GAS ORDERABLE S Final Result Performing Organization Address City/[facility]/ZIP Co de Phone Number [facility] [address] [place] [address] * CREATININE (05/09/2008 4:10 EST) Creatinine 0.80 0.6 - 1.2 mg/dl [facility] GFR, Calculated Age <18 ml/min/1.7 3m2 [facility] 05/09/2008 4:10 EST 05/09/2008 4:17 EST us Jose Alejandro Castro MD CHEMISTRY & BLOOD GAS ORDERABLE S Final Result Performing Organization Address [facility] Co de Phone Number [facility] [address] [place] [address] * BUN (05/09/2008 4:10 EST) BUN 10 8 - 21 mg/dl [facility] 05/09/2008 4:10 EST 05/09/2008 4:17 EST us Jose Alejandro Castro MD CHEMISTRY & BLOOD GAS ORDERABLE S Final Result Performing Organization Address [facility] Co de Phone Number [facility] [address] [place] [address] * TOTAL & DIRECT BILIRUBIN (05/09/2008 4:10 EST) Conjugated Bilirubin 0.0 0.0 - 0.3 mg/dl [facility] Unconjugated Bilirubin 0.6 0.1 - 1.1 mg/dl [facility] Bilirubin, Total <0.5 0.0 - 1.4 mg/dl [facility] 05/09/2008 4:10 EST 05/09/2008 4:17 EST us Jose Alejandro Castro MD CHEMISTRY & BLOOD GAS ORDERABLE S Final Result Performing Organization Address [facility]/ZIP Co de Phone Number [facility] [address] [place] [address] * (ABNORMAL) ALT (05/09/2008 4:10 EST) ALT 89(H) 0 - 45 U/L [facility] 05/09/2008 4:10 EST 05/09/2008 4:17 EST Jose Alejandro Castro MD CHEMISTRY & BLOOD GAS ORDERABLE S Final Result Performing Organization Address [facility] de Phone Number [facility] [address] [place] [address] * (ABNORMAL) ALBUMIN (05/09/2008 4:10 EST) Pathologist [facility] Albumin 2.7(L) 3.0 - 5.5 g/dl [facility] 05/09/2008 4:10 EST 05/09/2008 4:17 EST Jose Alejandro Castro MD CHEMISTRY & BLOOD GAS ORDERABLE S Final Result Performing Organization Address [facility] de Phone Number [facility] [address] [place] [address] * (ABNORMAL) ELECTROLYTES (05/09/2008 4:10 EST) Sodium [...] ORDERABLE S Final Result Performing Organization Address [facility] Co de Phone Number [facility] [address] [place] [address] * TROPONIN I (05/09/2008 4:10 EST) [facility] Troponin I pre 2012 Sample quantity insufficient for testing. ng/ml [facility] 05/09/2008 4:10 EST 05/09/2008 4:17 EST Jose Alejandro Castro MD CHEMISTRY & BLOOD GAS ORDERABLE S Final Result Performing Organization Address City/[facility]/ZIP Co de Phone Number [facility] [address] [place] [address] * CK MB WITH TOTAL CK (05/09/2008 4:10 EST) [facility] CK Sample quantity insufficient for testing. U/L [facility] MB Sample quantity insufficient for testing. 0 - 5.0 ng/ml [facility] CK-MB Index Sample quantity insufficient for testing. 0 - 2.5 [facility] 05/09/2008 4:10 EST 05/09/2008 4:17 EST Jose Alejandro Castro MD CHEMISTRY & BLOOD GAS ORDERABLE S Final Result Performing Organization Address [facility] Co de Phone Number [facility] [address] [place] [address] * (ABNORMAL) HEMAGRAM AND DIFFERENTIAL (05/09/2008 4:10 EST) [facility] WBC 41.47(H) 4.6 - 11.2 K/cmm AN[facility]HA [...] PROBE ORDERABLES Final Result Performing Organization Address [facility] de Phone Number [facility] [address] [place] [address] * CALCIUM IONIZED (05/09/2008 4:10 EST) Ionized Calcium Note Sample sent to Lab. [facility] 05/09/2008 4:10 EST 05/09/2008 4:17 EST Jose Alejandro Castro MD CHEMISTRY & BLOOD GAS ORDERABLE S Final Result Performing Organization Address [facility] Co de Phone Number [facility] [address] [place] [address] * (ABNORMAL) GLUCOSE, GLUCOMETER (05/09/2008 3:03 EST) Glucose, Fingerstick 219(H) 70 - 100 mg/dl [facility] Database Management System Specialist ID [id number] Test Performed by Nursing Services [facility] 05/09/2008 3:03 EST 05/09/2008 23:14 EST Jose Alejandro Castro MD CHEMISTRY & BLOOD GAS ORDERABLE S Final Result Performing Organization Address [facility] Co de Phone Number [facility] [address] [place] [address] * (ABNORMAL) GLUCOSE, GLUCOMETER (05/09/2008 2:04 EST) Glucose, Fingerstick 259(H) 70 - 100 mg/dl [facility] Database Management System Specialist ID [id number] Test Performed by Nursing Services [facility] 05/09/2008 2:04 EST 05/09/2008 23:14 EST Jose Alejandro Castro MD CHEMISTRY & BLOOD GAS ORDERABLE S Final Result Performing Organization Address City/[facility]/ZIP Co de Phone Number [facility] [address] [place] [address] * (ABNORMAL) GLUCOSE, GLUCOMETER (05/09/2008 1:11 EST) Glucose, Fingerstick 258(H) 70 - 100 mg/dl [facility] Database Management System Specialist ID [id number] Test Performed by Nursing Services [facility] 05/09/2008 1:11 EST 05/09/2008 23:14 EST us Jose Alejandro Castro MD CHEMISTRY & BLOOD GAS ORDERABLE S Final Result Performing Organization Address [facility] de Phone Number [facility] [address] [place] [address] * (ABNORMAL) BLOOD GAS, G3 ISTAT (05/09/2008 [...] [facility] Sample Type ARTERIAL [facility] acetone button paster ID [id number] Test Performed by Respiratory [facility] 05/09/2008 0:29 EST 05/09/2008 4:22 EST Jose Alejandro Castro MD CHEMISTRY & BLOOD GAS ORDERABLE S Final Result Performing Organization Address [facility] de Phone Number [facility] [address] [place] [address] * (ABNORMAL) CALCIUM, IONIZED (05/09/2008 0:28 EST) [facility] Calcium, Ionized 1.08(L) 1.12 - 1.32 mmol/L [facility] acetone button paster ID [id number] Test performed by Chemistry [facility] 05/09/2008 0:28 EST 05/09/2008 0:31 EST us Jose Alejandro Castro MD CHEMISTRY & BLOOD GAS ORDERABLE S Final Result Performing Organization Address [facility] de Phone Number [facility] [address] [place] [address] * (ABNORMAL) BLOOD GAS, CG4 ISTAT (05/09/2008 0:25 EST) [facility] pH, i-STAT 7.27(L) 7.35 - 7.45 ANISHA [...] [facility] Sample Type ARTERIAL [facility]IS[facility] acetone button paster ID [id number] Test Performed by Respiratory [facility] 05/09/2008 0:25 EST 05/09/2008 4:22 EST us Jose Alejandro Castro MD CHEMISTRY & BLOOD GAS ORDERABLE S Final Result Performing Organization Address [facility] de Phone Number [facility] [address] [place] [address] * (ABNORMAL) GLUCOSE, GLUCOMETER (05/09/2008 0:17 EST) [facility] Glucose, Fingerstick 270(H) 70 - 100 mg/dl [facility] Database Management System Specialist ID [id number] Test Performed by Nursing Services [facility] 05/09/2008 0:17 EST 05/09/2008 23:14 EST Jose Alejandro Castro MD CHEMISTRY & BLOOD GAS ORDERABLE S Final Result Performing Organization Address [facility] de Phone Number [facility] [address] [place] [address] * (ABNORMAL) GLUCOSE, SERUM (05/09/2008 0:10 EST) Glucose, Serum 243(H) 70 - 100 mg/dl [facility] 05/09/2008 0:10 EST 05/09/2008 0:22 EST Jose Alejandro Castro MD CHEMISTRY & BLOOD GAS ORDERABLE S Final Result Performing Organization Address [facility] Phone Number [facility] [address] [place] [address] * PHOSPHORUS (05/09/2008 0:10 EST) Phosphorus 3.0 2.7 - 4.7 mg/dl [facility] 05/09/2008 0:10 EST 05/09/2008 0:22 EST Jose Alejandro Castro MD CHEMISTRY & BLOOD GAS ORDERABLE S Final Result Performing Organization Address [facility] de Phone Number [facility] [address] [place] [address] * (ABNORMAL) MAGNESIUM (05/09/2008 0:10 EST) Magnesium 1.5(L) 1.7 - 2.8 mg/dl [facility] 05/09/2008 0:10 EST 05/09/2008 0:22 EST Jose Alejandro Castro MD CHEMISTRY & BLOOD GAS ORDERABLE S Final Result Performing Organization Address [facility] de Phone Number [facility] [address] [place] [address] * (ABNORMAL) ELECTROLYTES (05/09/2008 0:10 EST) Sodium 138 136 - 145 mEq/L [facility] Potassium 5.6(H) 3.5 - 5.0 mEq/L [facility] Chloride 109 96 - 110 mEq/L [facility] CO2 19(L) 24 - 32 mEq/L [facility] 05/09/2008 0:10 EST 05/09/2008 0:22 EST Jose Alejandro Castro MD CHEMISTRY & BLOOD GAS ORDERABLE S Final Result Performing Organization Address City/[facility]/ZIP Co de Phone Number [facility] [address] [place] [address] * CALCIUM IONIZED (05/09/2008 0:10 EST) Ionized Calcium Note Sample sent to Lab. [facility] 05/09/2008 0:10 EST 05/09/2008 0:22 EST Jose Alejandro Castro MD CHEMISTRY & BLOOD GAS ORDERABLE S Final Result Performing Organization Address City/[facility]/ZIP Co de Phone Number [facility] [address] [place] [address] * (ABNORMAL) GLUCOSE, GLUCOMETER (05/08/2008 22:59 EST) Glucose, Fingerstick 333(H) 70 - 100 mg/dl [facility] Database Management System Specialist ID [id number] Test Performed by Nursing Services [facility] 05/08/2008 22:5 9 EST 05/08/2008 23:11 EST Jose Alejandro Castro MD CHEMISTRY & BLOOD GAS ORDERABLE S Final Result Performing Organization Address [facility]/ZIP Co de Phone Number [facility] [address] [place] [address] * (ABNORMAL) GLUCOSE, GLUCOMETER (05/08/2008 21:07 EST) Glucose, Fingerstick 345(H) 70 - 100 mg/dl [facility] Database Management System Specialist ID [id number] Test Performed by Nursing Services [facility] 05/08/2008 21:0 7 EST 05/08/2008 21:20 EST Jose Alejandro Castro MD CHEMISTRY & BLOOD GAS ORDERABLE S Final Result Performing Organization Address [facility] de Phone Number [facility] [address] [place] [address] * CALCIUM, IONIZED (05/08/2008 20:17 EST) [facility] Calcium, Ionized 1.23 1.12 - 1.32 mmol/L [facility] acetone button paster ID [id number] Test performed by Chemistry [facility] 05/08/2008 20:1 7 EST 05/08/2008 20:19 EST Jose Alejandro Castro MD CHEMISTRY & BLOOD GAS ORDERABLE S Final Result Performing Organization Address [facility] de Phone Number [facility] [address] [place] [address] * (ABNORMAL) BLOOD GAS, G3 ISTAT (05/08/2008 20:08 EST) [facility] pH, i-STAT 7.25(L) 7.35 - 7.45 ANISHA [...] [facility] Sample Type VENOUS ANISHA [facility] acetone button paster ID [id number] Test Performed by Respiratory [facility] 05/08/2008 20:0 8 EST 05/08/2008 20:15 EST us Jose Alejandro Castro MD CHEMISTRY & BLOOD GAS ORDERABLE S Final Result Performing Organization Address [facility] de Phone Number [facility] [address] [place] [address] * (ABNORMAL) GLUCOSE, GLUCOMETER (05/08/2008 20:06 EST) Glucose, Fingerstick 363(H) 70 - 100 mg/dl [facility] Database Management [place] Specialist ID [id number] Test Performed by Nursing Services [facility] 05/08/2008 20:0 6 EST 05/08/2008 21:19 EST Jose Alejandro Castro MD CHEMISTRY & BLOOD GAS ORDERABLE S Final Result Performing Organization Address [facility] de Phone Number [facility] [address] [place] [address] * VANCOMYCIN, RANDOM (05/08/2008 20:05 EST) Vancomycin Random 10.7 ug/ml [facility] Comment: Reference Range: Trough: 5.0-20.0 Peak: ??30.0-40.0 05/08/2008 20:0 5 EST 05/08/2008 20:11 EST Jose Alejandro Castro MD CHEMISTRY & BLOOD GAS ORDERABLE S Final Result Performing Organization Address [facility] de Phone Number [facility] [address] [place] [address] * (ABNORMAL) GLUCOSE, SERUM (05/08/2008 20:05 EST) Glucose, Serum 362(H) 70 - 100 mg/dl [facility] 05/08/2008 20:0 5 EST 05/08/2008 20:11 EST Jose Alejandro Castro MD CHEMISTRY & BLOOD GAS ORDERABLE S Final Result Performing Organization Address [facility] Co de Phone Number [facility] [address] [place] [address] * PHOSPHORUS (05/08/2008 20:05 EST) Phosphorus 2.8 2.7 - 4.7 mg/dl [facility] 05/08/2008 20:0 5 EST 05/08/2008 20:11 EST us Jose Alejandro Castro MD CHEMISTRY & BLOOD GAS ORDERABLE S Final Result Performing Organization Address [facility]/ZIP Co de Phone Number [facility] [address] [place] [address] * (ABNORMAL) MAGNESIUM (05/08/2008 20:05 EST) Magnesium 1.5(L) 1.7 - 2.8 mg/dl [facility] 05/08/2008 20:0 5 EST 05/08/2008 20:11 EST us Jose Alejandro Castro MD CHEMISTRY & BLOOD GAS ORDERABLE S Final Result Performing Organization Address [facility] de Phone Number [facility] [address] [place] [address] * CREATININE (05/08/2008 20:05 EST) Creatinine 1.10 0.6 - 1.2 mg/dl [facility] GFR, Calculated Age <18 ml/min/1.7 3m2 [facility] 05/08/2008 20:0 5 EST 05/08/2008 20:11 EST us Jose Alejandro Castro MD CHEMISTRY & BLOOD GAS ORDERABLE S Final Result Performing Organization Address City/[facility] Co de Phone Number [facility] [address] [place] [address] * BUN (05/08/2008 20:05 EST) BUN 14 8 - 21 mg/dl [facility] 05/08/2008 20:0 5 EST 05/08/2008 20:11 EST us Jose Alejandro Castro MD CHEMISTRY & BLOOD GAS ORDERABLE S Final Result Performing Organization Address City/[facility] Co de Phone Number [facility] [address] [place] [address] * (ABNORMAL) ELECTROLYTES (05/08/2008 20:05 EST) Sodium [...] ORDERABLE S Final Result Performing Organization Address City/[facility]/ZIP Co de Phone Number [facility] [address] [place] [address] * (ABNORMAL) HEMAGRAM (05/08/2008 20:05 EST) WBC [...] ORDERABLES Fin al Result Performing Organization Address City/[facility]/ZIP Co de Phone Number [facility] [address] [place] [address] * CALCIUM IONIZED (05/08/2008 20:05 EST) Ionized Calcium Note Sample sent to Lab. [facility] 05/08/2008 20:0 5 EST 05/08/2008 20:11 EST Jose Alejandro Castro MD CHEMISTRY & BLOOD GAS ORDERABLE S Final Result Performing Organization Address [facility] de Phone Number [facility] [address] [place] [address] * (ABNORMAL) BLOOD GAS, CG4 ISTAT (05/08/2008 [...] [facility] Sample Type ARTERIAL ANISHA [facility] acetone button paster ID [id number] Test Performed by Respiratory [facility] 05/08/2008 20:0 2 EST 05/08/2008 20:15 EST us Jose Alejandro Castro MD CHEMISTRY & BLOOD GAS ORDERABLE S Final Result Performing Organization Address [facility] de Phone Number [facility] [address] [place] [address] * MRSA MOLECULAR DETECTION (05/08/2008 20:00 EST) Specimen Description Nares Specimen submitted on a swab [facility] Result NEGATIVE for Methicillin Resistant Staphylococcus aureus DNA by PCR. [facility] Report Status Final 05/09/2008 [facility] 05/08/2008 20:0 0 EST 05/08/2008 20:44 EST Jose Alejandro Castro MD MICROBIOLOGY - GENERAL ORDERABL ES Final Result Performing Organization Address City/[facility]/ZIP Co de Phone Number [facility] [address] [place] [address] * POTASSIUM (05/08/2008 19:00 EST) Potassium 4.5 3.5 - 5.0 mEq/L [facility] 05/08/2008 19:0 0 EST 05/08/2008 19:03 EST Jose Alejandro Castro MD CHEMISTRY & BLOOD GAS ORDERABLE S Final Result Performing Organization Address [facility] Co de Phone Number [facility] [address] [place] [address] * (ABNORMAL) GLUCOSE, GLUCOMETER (05/08/2008 18:13 EST) Glucose, Fingerstick 422(H) 70 - 100 mg/dl [facility] Database Management System Specialist ID [id number] Test Performed by Nursing Services [facility] 05/08/2008 18:1 3 EST 05/08/2008 21:19 EST Jose Alejandro Castro MD CHEMISTRY & BLOOD GAS ORDERABLE S Final Result Performing Organization Address [facility] de Phone Number [facility] [address] [place] [address] * (ABNORMAL) CALCIUM, IONIZED (05/08/2008 16:31 EST) Calcium, Ionized 1.37(H) 1.12 - 1.32 mmol/L [facility] acetone button paster ID [id number] Test performed by Chemistry [facility] 05/08/2008 16:3 1 EST 05/08/2008 16:35 EST Jose Alejandro Castro MD CHEMISTRY & BLOOD GAS ORDERABLE S Final Result Performing Organization Address [facility] de Phone Number [facility] [address] [place] [address] * (ABNORMAL) GLUCOSE, SERUM (05/08/2008 16:27 EST) Glucose, Serum 456(H) 70 - 100 mg/dl [facility] 05/08/2008 16:2 7 EST 05/08/2008 16:27 EST us Jose Alejandro Castro MD CHEMISTRY & BLOOD GAS ORDERABLE S Final Result Performing Organization Address [facility] de Phone Number [facility] [address] [place] [address] * (ABNORMAL) PHOSPHORUS (05/08/2008 16:27 EST) Phosphorus 1.5(L) 2.7 - 4.7 mg/dl [facility] 05/08/2008 16:2 7 EST 05/08/2008 16:27 EST us Jose Alejandro Castro MD CHEMISTRY & BLOOD GAS ORDERABLE S Final Result Performing Organization Address [facility] Phone Number [facility] [address] [place] [address] * MAGNESIUM (05/08/2008 16:27 EST) Magnesium 1.8 1.7 - 2.8 mg/dl [facility] 05/08/2008 16:2 7 EST 05/08/2008 16:27 EST us Jose Alejandro Castro MD CHEMISTRY & BLOOD GAS ORDERABLE S Final Result Performing Organization Address [facility] de Phone Number [facility] [address] [place] [address] * (ABNORMAL) CREATININE (05/08/2008 16:27 EST) Creatinine 1.40(H) 0.6 - 1.2 mg/dl [facility] Comment:Sample retested, res ult confirmed GFR, Calculated Age <18 ml/min/1.7 3m2 [facility] 05/08/2008 16:2 7 EST 05/08/2008 16:27 EST us Jose Alejandro Castro MD CHEMISTRY & BLOOD GAS ORDERABLE S Final Result Performing Organization Address City/[facility]/ZIP Co de Phone Number [facility] [address] [place] [address] * BUN (05/08/2008 16:27 EST) BUN 16 8 - 21 mg/dl [facility] 05/08/2008 16:2 7 EST 05/08/2008 16:27 EST Jose Alejandro Castro MD CHEMISTRY & BLOOD GAS ORDERABLE S Final Result Performing Organization Address [facility] de Phone Number [facility] [address] [place] [address] * (ABNORMAL) ELECTROLYTES (05/08/2008 16:27 EST) Sodium [...] ORDERABLE S Final Result Performing Organization Address [facility] de Phone Number [facility] [address] [place] [address] * CALCIUM IONIZED (05/08/2008 16:27 EST) Ionized Calcium Note Sample sent to Lab. [facility] 05/08/2008 16:2 7 EST 05/08/2008 16:27 EST Jose Alejandro Castro MD CHEMISTRY & BLOOD GAS ORDERABLE S Final Result Performing Organization Address [facility] de Phone Number [facility] [address] [place] [address] * (ABNORMAL) BLOOD GAS, G3 ISTAT (05/08/2008 [...] [facility] Sample Type VENOUS [facility] acetone button paster ID [id number] Test Performed by Respiratory [facility] 05/08/2008 16:2 2 EST 05/08/2008 16:30 EST Jose Alejandro Castro MD CHEMISTRY & BLOOD GAS ORDERABLE S Final Result Performing Organization Address [facility] de Phone Number [facility] [address] [place] [address] * (ABNORMAL) BLOOD GAS, CG4 ISTAT (05/08/2008 16:14 EST) [facility] pH, i-STAT 7.17(L) 7.35 - 7.45 [facility] [...] [facility] Sample Type ARTERIAL ANISHA [facility] acetone button paster ID [id number] Test Performed by Respiratory [facility] 05/08/2008 16:1 4 EST 05/08/2008 16:30 EST us Jose Alejandro Castro MD CHEMISTRY & BLOOD GAS ORDERABLE S Final Result Performing Organization Address [facility] de Phone Number [facility] [address] [place] [address] * (ABNORMAL) GLUCOSE, GLUCOMETER (05/08/2008 16:11 EST) Glucose, Fingerstick 456(H) 70 - 100 mg/dl [facility] Database Management System Specialist ID [id number] Test Performed by Nursing Services [facility] 05/08/2008 16:1 1 EST 05/08/2008 21:19 EST us Jose Alejandro Castro MD CHEMISTRY & BLOOD GAS ORDERABLE S Final Result Performing Organization Address City/State/[facility] Co de Phone Number [facility] [address] [place] [address] * PORTABLE CHEST 1 VIEW (05/08/2008 14:48 [...] (ABNORMAL) CALCIUM, IONIZED (05/08/2008 13:04 EST) Pathologist [facility] Calcium, Ionized 1.42(H) 1.12 - 1.32 mmol/L [facility]IS[facility] acetone [place] [id number] Test performed by Chemistry [facility] 05/08/2008 13:0 4 EST 05/08/2008 13:08 EST Jose Alejandro Castro MD CHEMISTRY & BLOOD GAS ORDERABLE S Final Result Performing Organization Address [facility] de Phone Number [facility] [address] [place] [address] * (ABNORMAL) PHOSPHORUS (05/08/2008 12:57 EST) [facility] Phosphorus <1.0(L) 2.7 - 4.7 mg/dl [facility] Comment:Sample retested, res ult confirmed 05/08/2008 12:5 7 EST 05/08/2008 12:57 EST Jose Alejandro Castro MD CHEMISTRY & BLOOD GAS ORDERABLE S Final Result Performing Organization Address [facility] de Phone Number [facility] [address] [place] [address] * (ABNORMAL) HEMAGRAM AND DIFFERENTIAL (05/08/2008 12:57 EST) Pathologist [facility] WBC 20.03(H) 4.6 - 11.2 K/cmm [facility] RBC 3.88(L) 4.50 - 5.30 M/cmm [facility] Hemoglobin 10.2(L) 13.0 - 16.0 gm/dl [facility] HCT 29.8(L) 37.0 - 49.0 % [facility] MCV 77(L) 78 - 98 fl [facility] MCH 26.4 pg [facility] M[facility]C 34.3 gm/dl [facility] PLT 141(L) 156 - 312 K/cmm [facility] RDW-CV 17.5 % [facility] Neutrophils 65.0 % [facility] % Bands 27.0 % [facility] Lymphocytes 3.0 % [facility] Monocytes 1.0 % [facility] % Metamyelocytes 4.0 % [facility] ABS Neutrophils 13.02 K/cmm [facility] ABS Bands 5.41 K/cmm [facility] ABS Lymphs 0.60 K/cmm [facility] ABS Monocytes 0.20 K/[facility] Metamyelocytes 0.80 K/cmm [facility] RBC Morphology 1+ Poikilocytosis 1+ Anisocytosis 1+ Microcytes 1+ Ovalocytes [facility] Comment Rev'd by Pathologist ANISHA GARCIA Type of Diff: Manual TRUE [facility] 05/08/2008 12:5 7 EST 05/08/2008 12:57 EST us Jose Alejandro Castro MD PACKAGES & DNA PROBE ORDERABLES Final Result [facility] [address] [place] [address] * (ABNORMAL) TOTAL PROTEIN (05/08/2008 12:57 EST) [facility] Total Protein 5.0(L) 6.3 - 8.6 g/dl [facility] 05/08/2008 12:5 7 EST 05/08/2008 12:57 EST Jose Alejandro Castro MD CHEMISTRY & BLOOD GAS ORDERABLE S Final Result Performing Organization Address [facility] Co de Phone Number [facility] [address] [place] [address] * (ABNORMAL) GLUCOSE, SERUM (05/08/2008 12:57 EST) Glucose, Serum 488(H) 70 - 100 mg/dl [facility] 05/08/2008 12:5 7 EST 05/08/2008 12:57 EST Jose Alejandro Castro MD CHEMISTRY & BLOOD GAS ORDERABLE S Final Result Performing Organization Address [facility] Phone Number [facility] [address] [place] [address] * (ABNORMAL) MAGNESIUM (05/08/2008 12:57 EST) Magnesium 1.4(L) 1.7 - 2.8 mg/dl [facility] 05/08/2008 12:5 7 EST 05/08/2008 12:57 EST Jose Alejandro Castro MD CHEMISTRY & BLOOD GAS ORDERABLE S Final Result Performing Organization Address [facility] Phone Number [facility] [address] [place] [address] * TOTAL & DIRECT BILIRUBIN (05/08/2008 12:57 EST) Conjugated Bilirubin 0.0 0.0 - 0.3 mg/dl [facility] Unconjugated Bilirubin 0.3 0.1 - 1.1 mg/dl [facility] Bilirubin, Total <0.5 0.0 - 1.4 mg/dl [facility] 05/08/2008 12:5 7 EST 05/08/2008 12:57 EST us Jose Alejandro Castro MD CHEMISTRY & BLOOD GAS ORDERABLE S Final Result Performing Organization Address [facility]/ZIP Co de Phone Number [facility] [address] [place] [address] * (ABNORMAL) ALBUMIN (05/08/2008 12:57 EST) Pathologist [facility] Albumin 2.7(L) 3.0 - 5.5 g/dl [facility] 05/08/2008 12:5 7 EST 05/08/2008 12:57 EST Jose Alejandro Castro MD CHEMISTRY & BLOOD GAS ORDERABLE S Final Result Performing Organization Address [facility] de Phone Number [facility] [address] [place] [address] * (ABNORMAL) ELECTROLYTES (05/08/2008 12:57 EST) [facility] Sodium 141 136 - 145 mEq/L ANISHA [...] Performing Organization Address [facility] de Phone Number [facility] [address] [place] [address] * CALCIUM IONIZED (05/08/2008 12:57 EST) Pathologist [facility] Ionized Calcium Note Sample sent to Lab. [facility] 05/08/2008 12:5 7 EST 05/08/2008 12:57 EST Jose Alejandro Castro MD CHEMISTRY & BLOOD GAS ORDERABLE S Final Result Performing Organization Address [facility] Co de Phone Number [facility] [address] [place] [address] * (ABNORMAL) BLOOD GAS, G3 ISTAT (05/08/2008 12:52 EST) Pathologist [facility] pH, i-STAT 7.13(L) 7.35 - 7.45 [facility] pCO2, i-STAT 36 35 - 45 mmHg [facility] pO2, i-STAT 58(L) 85 - 100 mmHg [facility] TCO2, i-STAT 13 mEq/L FLENANCY [facility] O2 Saturation 82 % TRUE [facility] Base Deficit 16 FLETCHE R [facility] Temperature 36.2 C [facility] Sample Type VENOUS [facility] acetone button paster ID [id number] Test Performed by Respiratory [facility] 05/08/2008 12:5 2 EST 05/08/2008 12:56 EST us Jose Alejandro Castro MD CHEMISTRY & BLOOD GAS ORDERABLE S Final Result Performing Organization Address [facility] de Phone Number [facility] [address] [place] [address] * (ABNORMAL) BLOOD GAS, CG4 ISTAT (05/08/2008 12:46 EST) [facility] pH, i-STAT 7.20(L) 7.35 - 7.45 ANISHA [...] [facility] Sample Type ARTERIAL [facility] acetone button paster ID [id number] Test Performed by Respiratory [facility] 05/08/2008 12:4 6 EST 05/08/2008 12:56 EST Jose Alejandro Castro MD CHEMISTRY & BLOOD GAS ORDERABLE S Final Result Performing Organization Address [facility] Co de Phone Number [facility] [address] [place] [address] * BACTERIAL CULTURE, BLOOD (05/08/2008 12:00 EST) Specimen Description Blood Arterial Line Pediatric bottle received Volume of blood collected may not be adequate for detection of bacteremia/se pticemia. [facility] Result No growth [facility] Report Status Final [id number] [facility] 05/08/2008 12:0 0 EST 05/08/2008 12:00 EST Jose Alejandro Castro MD MICROBIOLOGY - GENERAL ORDERABL ES Final Result Performing Organization Address [facility] de Phone Number [facility] [address] [place] [address] * BACTERIAL CULTURE, BLOOD (05/08/2008 11:59 EST) Specimen Description Blood Venous specimen. [facility] Result No growth [facility] Report Status Final [id number] [facility] 05/08/2008 11:5 9 EST 05/08/2008 11:59 EST Jose Alejandro Castro MD MICROBIOLOGY - GENERAL ORDERABL ES Final Result Performing Organization Address [facility] de Phone Number [facility] [address] [place] [address] * ECHOCARDIOGRAM (05/08/2008 10:55 EST) Anatomical Region Laterality Modality Other 05/08/2008 10:5 5 EST Narrative 11/21/2008 8:55 EDT ? ventricular dysfunction Site Location: Date of Appt: Thursday, May 08, 2008, 10:55 AM Pediatric Echocardiogram Report Demographics and Visit Data: : 1990. ??Age: 17y/10m/23d. ??BSA (m 2): 1.78. Weight (kg): 75. ??Patient location: [place] [address]. ??Weight Centile: 67.41. Person requesting test: JOSE [...] Midwall Diastolic Dimension ? 6.18 ? cm Corinne's Name: YASMINE MEJIA MD Date/time of reading: [...] 2): 1.78. Weight (kg): 75. Patient location: [place] [address]. Weight Centile: 67.41. Person requesting test: JOSE [...] 2 LV Midwall Diastolic Dimension 6.18 cm Corinne's Name: ROBERTO PANG,YASMINE LEIVA Date/time of reading: [...] ORDERABL ES Final Result Performing Organization Address [facility] de Phone Number [facility] [address] [place] [address] * (ABNORMAL) BLOOD GAS, G3 ISTAT (05/08/2008 [...] LAB Sample Type NOT GIVEN [facility] acetone button paster ID [id number] Test Performed by Respiratory [facility] 05/08/2008 8:45 EST 05/08/2008 8:51 EST Jose Alejandro Castro MD CHEMISTRY & BLOOD GAS ORDERABLE S Final Result Performing Organization Address [facility] de Phone Number [facility] [address] [place] [address] * (ABNORMAL) BLOOD GAS, CG4 ISTAT (05/08/2008 [...] [facility] Sample Type ARTERIAL ANIS[facility] acetone button paster ID [id number] Test Performed by Respiratory [facility] 05/08/2008 8:35 EST 05/08/2008 8:51 EST us Jose Alejandro Castro MD CHEMISTRY & BLOOD GAS ORDERABLE S Final Result [facility] [address] [place] [address] * ABDOMEN AP 1 VIEW (05/08/2008 8:35 [...] [facility] Sample Type ARTERIAL ANISHA [facility] acetone button paster ID [id number] Test Performed by Respiratory [facility] 05/08/2008 8:28 EST 05/08/2008 8:51 EST us Jose Alejandro Castro MD CHEMISTRY & BLOOD GAS ORDERABLE S Final Result Performing Organization Address [facility] de Phone Number [facility] [address] [place] [address] * (ABNORMAL) GLUCOSE, GLUCOMETER (05/08/2008 8:24 EST) Glucose, Fingerstick 173(H) 70 - 100 mg/dl [facility] Database Management System Specialist ID [id number] Test Performed by Nursing Services [facility] 05/08/2008 8:24 EST 05/08/2008 21:19 EST Jose Alejandro Castro MD CHEMISTRY & BLOOD GAS ORDERABLE S Final Result Performing Organization Address [facility] Co de Phone Number [facility] [address] [place] [address] * (ABNORMAL) BLOOD GAS, CG4 ISTAT (05/08/2008 6:56 EST) Pathologist [facility] pH, i-STAT 7.12(L) 7.35 - 7.45 ANISHA [...] [facility] Sample Type VENOUS [facility] acetone button paster ID [id number] Test Performed by Respiratory [facility]ISHA GARCIA 05/08/2008 6:56 EST 05/08/2008 18:53 EST Jose Alejandro Castro MD CHEMISTRY & BLOOD GAS ORDERABLE S Final Result Performing Organization Address [facility] Co de Phone Number [facility] [address] [place] [address] * PTT (05/08/2008 6:50 EST) Pathologist [facility] PTT 33 20 - 35 secs [facility] Comment:Therapeutic Heparin range: 60-100 seconds 05/08/2008 6:50 EST 05/08/2008 7:00 EST Jose Alejandro Castro MD HEMATOLOGY & PF4 ORDERABLES Fin al Result Performing Organization Address [facility] de Phone Number [facility] [address] [place] [address] * (ABNORMAL) PROTIME (05/08/2008 6:50 EST) Pathologist [facility] Pro Time 16.3(H) 12.0 - 15.0 secs [facility] I.N.R. 1.3(H) 0.9 - 1.1 Ratio [facility] Comment: Moderate Intensity Coumadin INR = 2.0-3.0 Adjustments in anticoagulant therapy dose should be based upon the INR and NOT the Pro Time. 05/08/2008 6:50 EST 05/08/2008 7:00 EST Jose Alejandro Castro MD HEMATOLOGY & PF4 ORDERABLES Fin al Result Performing Organization Address [facility] Phone Number [facility] [address] [place] [address] * FIBRINOGEN (05/08/2008 6:50 EST) [facility] Fibrinogen 406 220 - 410 mg/dl [facility] 05/08/2008 6:50 EST 05/08/2008 7:00 EST Jose Alejandro Castro MD HEMATOLOGY & PF4 ORDERABLES Fin al Result Performing Organization Address [facility] Phone Number [facility] [address] [place] [address] * (ABNORMAL) D-DIMER (05/08/2008 6:50 EST) [facility] D-Dimer 1.88(H) <0.50 ug FEU/ml [facility] [...] ORDERABLES Fin al Result Performing Organization Address [facility] de Phone Number [facility] [address] [place] [address] * (ABNORMAL) HEMAGRAM AND DIFFERENTIAL (05/08/2008 6:50 EST) [facility] WBC 8.29 4.6 - 11.2 K/cmm [facility] [...] [facility] % Metamyelocytes 3.0 % [facility] Nucleated RBC's 1 /100 WBC'S [facility] ABS Neutrophils 4.40 K/cmm SHERI [facility]LE [facility] ABS Bands 0.33 K/cmm [facility] ABS Lymphs 2.90 K/cmm [facility] ABS Monocytes 0.41 K/cmm [facility] Metamyelocytes 0.25 K/cmm [facility] RBC Morphology 1+ Anisocytosis 1+ Poikilocytosis 1+ Microcytes 1+ Ovalocytes [facility] Platelet Morphology 1+ Clumped platelets [facility] Type of Diff: Manual [facility] 05/08/2008 6:50 EST 05/08/2008 7:00 EST us Jose Alejandro Castro MD PACKAGES & DNA PROBE ORDERABLES Final Result [facility] [address] [place] [address] * TROPONIN I (05/08/2008 6:50 EST) [facility] Troponin I pre 2011 1.34 ng/ml [facility] Comment: Reference Range: Normal: ??Less than 0.05 Indeterminate: ??0.05-0.80 Positive: ??Greater than 0.80 05/08/2008 6:50 EST 05/08/2008 13:16 EST us Jose Alejandro Castro MD CHEMISTRY & BLOOD GAS ORDERABLE S Final Result Performing Organization Address City/[facility]/ZIP Co de Phone Number [facility] [address] [place] [address] * LACTIC ACID (05/08/2008 6:50 EST) Lactic Acid 5.0 mmol/L [facility] 05/08/2008 6:50 EST 05/08/2008 13:16 EST Jose Alejandro Castro MD CHEMISTRY & BLOOD GAS ORDERABLE S Final Result Performing Organization Address [facility] Co de Phone Number [facility] [address] [place] [address] * (ABNORMAL) CK MB WITH TOTAL CK (05/08/2008 6:50 EST) CK 140 U/L [facility] MB 9.0(H) 0 - 5.0 ng/ml [facility] CK-MB Index 6.4(H) 0 - 2.5 [facility] 05/08/2008 6:50 EST 05/08/2008 13:16 EST Jose Alejandro Castro MD CHEMISTRY & BLOOD GAS ORDERABLE S Final Result Performing Organization Address [facility]/ZIP Co de Phone Number [facility] [address] [place] [address] * (ABNORMAL) ALT (05/08/2008 6:50 EST) ALT 55(H) 0 - 45 U/L [facility] 05/08/2008 6:50 EST 05/08/2008 13:16 EST us Jose Alejandro Castro MD CHEMISTRY & BLOOD GAS ORDERABLE S Final Result [facility] [address] [place] [address] * (ABNORMAL) AST (05/08/2008 6:50 EST) AST 51(H) 15 - 46 U/L [facility] 05/08/2008 6:50 EST 05/08/2008 13:16 EST Jose Alejandro Castro MD CHEMISTRY & BLOOD GAS ORDERABLE S Final Result Performing Organization Address [facility] de Phone Number [facility] [address] [place] [address] * (ABNORMAL) GGT (05/08/2008 6:50 EST) GGT 42(H) 10 - 35 U/L [facility] 05/08/2008 6:50 EST 05/08/2008 13:16 EST us Jose Alejandro Castro MD CHEMISTRY & BLOOD GAS ORDERABLE S Final Result Performing Organization Address [facility] de Phone Number [facility] [address] [place] [address] * (ABNORMAL) PHOSPHORUS (05/08/2008 6:50 EST) Phosphorus 1.6(L) 2.7 - 4.7 mg/dl [facility] 05/08/2008 6:50 EST 05/08/2008 13:16 EST us Jose Alejandro Castro MD CHEMISTRY & BLOOD GAS ORDERABLE S Final Result Performing Organization Address [facility] de Phone Number [facility] [address] [place] [address] * MAGNESIUM (05/08/2008 6:50 EST) Magnesium 1.7 1.7 - 2.8 mg/dl [facility] 05/08/2008 6:50 EST 05/08/2008 13:16 EST us Jose Alejandro Castro MD CHEMISTRY & BLOOD GAS ORDERABLE S Final Result Performing Organization Address [facility]/ZIP Co de Phone Number [facility] [address] [place] [address] * (ABNORMAL) GLUCOSE, SERUM (05/08/2008 6:50 EST) Glucose, Serum 66(L) 70 - 100 mg/dl [facility] 05/08/2008 6:50 EST 05/08/2008 13:16 EST us Jose Alejandro Castro MD CHEMISTRY & BLOOD GAS ORDERABLE S Final Result Performing Organization Address [facility] Co de Phone Number [facility] [address] [place] [address] * (ABNORMAL) CREATININE (05/08/2008 6:50 EST) Creatinine 2.10(H) 0.6 - 1.2 mg/dl [facility] GFR, Calculated Age <18 ml/min/1.7 3m2 [facility] 05/08/2008 6:50 EST 05/08/2008 13:16 EST Jose Alejandro Castro MD CHEMISTRY & BLOOD GAS ORDERABLE S Final Result Performing Organization Address [facility] Co de Phone Number [facility] [address] [place] [address] * (ABNORMAL) BUN (05/08/2008 6:50 EST) BUN 25(H) 8 - 21 mg/dl [facility] 05/08/2008 6:50 EST 05/08/2008 13:16 EST us Jose Alejandro Castro MD CHEMISTRY & BLOOD GAS ORDERABLE S Final Result Performing Organization Address [facility]/ZIP Co de Phone Number [facility] [address] [place] [address] * (ABNORMAL) ELECTROLYTES (05/08/2008 6:50 EST) Sodium [...] ORDERABLE S Final Result Performing Organization Address [facility] Co de Phone Number [facility] [address] [place] [address] * (ABNORMAL) DELTA CREATININE (05/08/2008 6:50 EST) Pathologist [facility] Delta Creatinine Elevated initial creatinine or critical change in creatinine value.(AA) [facility] 05/08/2008 6:50 EST 05/08/2008 13:16 EST Jose Alejandro Castro MD CHEMISTRY & BLOOD GAS ORDERABLE S Final Result Performing Organization Address [facility] de Phone Number [facility] [address] [place] [address] * GLUCOSE, GLUCOMETER (05/08/2008 6:31 EST) Pathologist [facility] Glucose, Fingerstick 84 70 - 100 mg/dl [facility] Database Management System Specialist ID [id number] Test Performed by Nursing Services [facility] 05/08/2008 6:31 EST 05/08/2008 21:19 EST us Jose Alejandro Castro MD CHEMISTRY & BLOOD GAS ORDERABLE S Final Result Performing Organization Address [facility] de Phone Number [facility] [address] [place] [address] documented in this encounter Visit Diagnoses Not on filedocumented in this encounter
--- OUTSIDE RECORDS SUMMARY | 2024-08-03 13:54 | XMS_ITS | Encounter Summary ---
Author Organization [facility] Address [address] [place] [address] Care Team Providers Care Clothing Cutter Name Role Phone Corin Skinner MD Primary Care Provider [phone]- [phone] Encounter Details Date Type Department Care Team (Late st Contact Info) Description 04/11/2008 [facility] Visit [facility] [address] [place] [address] Nurse, Emergency Room, Social History Tobacco Use Types Packs/Day Years Used Date Smoking Tobacco: Never Assessed Sex and Gender Information Value Date Recorded Sex Assigned at Not on file Legal Sex Male 18:35 EST Gender Identity Not on file Sexual Orientation Not on file documented as of this encounter Progress Notes * Ricki, Conv Database Admin - 08/16/2009 1849 EST Department - Physician Summary Registration Date/Time: 04/11/2008 6:00 Addenda for MIGUEL ANGEL MASON JR VisitID: [id number] Date: 04/11/2008 04/11/2008 4:46 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 POSTICTAL, INCONTINENT, RECTAL TEMP: 89 F, NOW 92 F. HX: DM, BLOOD CX, WBC 1.8, [id number]. VS: 98 113/64 16. signed by Wilder [...] today. Pain level: unable to quantify. 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 PAST HX: Diabetes mellitus (insipidus). (traumatic brain injury, seizure disorder). SOCIAL HX: Nonsmoker. No alcohol use. The nutritional risk assessment revealed no deficiencies. No report of abuse. Arrived by EMS. Historian: EMS. --634 Rosy Ramírez R.N. (Father states when at [facility] 2 months ago, it was discovered that [...] R.N., R.N. Locked/Released at 04/12/2008 11:37 by Aanbelle Perez R.N. documented in this encounter Plan of Treatment Upcoming Encounters Date Type Department Care Team (Late st Contact Info) Description 10/01/2024 13:40 EDT [facility] [place] [address] [place] [address] Wilder Zaidi, DO [address] [place] [address] documented as of this encounter Visit Diagnoses Not on filedocumented in this encounter Care Teams Clothing Cutter Relationship Specialty Start Date End Date Corin Skinner MD [address] [place] [phone] PCP - General 10/24/08 08/21/09 documented as of this encounter
--- OUTSIDE RECORDS SUMMARY | 2024-08-03 13:55 | XMS_ITS | Encounter Summary ---
Author Organization [facility] Address [address] [place] [address] Care Team Providers Care Workcell Operator Name Role Phone Unavailable Primary Care Provider Unavailabl e Encounter Details Date Type Department Care Team (Late st Contact Info) Description 08/13/2006 12:57 EST Hospital Encounter [facility] [address] [place] [address] [facility] [address] [place] [phone] Social History Tobacco Use Types Packs/Day Years [...] Office Visit [facility] Endocrinology - [facility] [address] [place] [address] Wilder Zaidi, DO [address] [facility] [address] [place] [address] documented as of this encounter Visit Diagnoses Not on filedocumented in this encounter
--- OUTSIDE RECORDS SUMMARY | 2024-08-03 13:55 | XMS_ITS | Encounter Summary ---
Author Organization [facility] Address [address] [place] [address] Care Team Providers Care Special Crimes Investigator Name Role Phone Unavailable Primary Care Provider Unavailabl e Encounter Details Date Type Department Care Team (Late st Contact Info) Description 02/06/2006 11:26 EDT Hospital Encounter [facility] [address] [place] [address] [facility] [address] [place] [phone] Social History Tobacco Use Types Packs/Day Years [...] System [facility] Endocrinology - [facility] [address] [place] [address] Wilder Zaidi, DO [address] [facility] [address] [place] [address] documented as of this encounter Visit Diagnoses Not on filedocumented in this encounter
--- OUTSIDE RECORDS SUMMARY | 2024-08-03 13:55 | XMS_ITS | Encounter Summary ---
Author Organization [facility] Address [address] [place] [address] Care Team Providers Care Mobile Phlebotomist Name Role Phone Corin Skinner MD Primary Care Provider +1- [phone] Encounter Details Date Type Department Care Team (Late st Contact Info) Description 05/15/2007 Before PRISM Converted Visit ([facility]) [facility] - [facility] conversion [address] [place] [address] Marvin Perez MD [address] [place] [phone] Social History Tobacco Use Types Packs/Day Years Used Date Smoking Tobacco: Never Assessed Sex and Gender Information Value Date Recorded Sex Assigned at Not on file Legal Sex Male 18:35 EST Gender Identity Not on file Sexual Orientation Not on file documented as of this encounter Progress Notes * Marvin Perez - 05/17/2009 1405 EST DIVISION OF NEUROSURGERY PROGRESS/FOLLOWUP NOTE - 05/15/2007 Kris Drew MD [address] [place] [address] Drew: Miguel Angel Burgos was [...] - Marvin Perez MD - Job ID: [id number] Doc ID: [id number] cc: Kris Drew MD - Job ID: [id number] Doc ID: [id number] cc: Kris Drew MD documented in this encounter Plan of Treatment Upcoming Encounters Date Type Department Care Team (Late st Contact Info) Description 10/01/2024 13:40 EDT Office Visit [facility] Endocrinology - [address] [id number] Wilder Zaidi, [address] [place] [address] documented as of this encounter Visit Diagnoses Not on filedocumented in this encounter Care Teams Mobile Phlebotomist Relationship Specialty Start Date End Date Corin Skinner MD [address] [place] [phone] PCP - General 10/24/08 08/21/09 documented as of this encounter
--- OUTSIDE RECORDS SUMMARY | 2024-08-03 13:55 | XMS_ITS | Encounter Summary ---
Author Organization [facility] Address [address] [place] [address] Care Team Providers Care Upholstery Estimator Name Role Phone Corin Skinner MD Primary Care Provider Encounter Details Date Type Department Care Team (Late st Contact Info) Description 08/13/2006 Before PRISM Converted Visit (Maple) [facility] - [place] conversion [address] [place] [address] Skyler Edwards [facility] [address] [place] [phone] Social History Tobacco Use Types Packs/Day Years Used Date Smoking Tobacco: Never Assessed Sex and Gender Information Value Date Recorded Sex Assigned at Not on file Legal Sex Male 18:35 EST Gender Identity Not on file Sexual Orientation Not on file documented as of this encounter Progress Notes * Skyler Edwards MD - 07/13/2009 0325 EST PROGRESS/FOLLOWUP NOTE - 08/13/2006 Kris Drew MD [address] [place] [address] [place] [address] 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 His foster mother, Krissy Wilson, and public relations, Edel Jones, accompanied him to the visit. Miguel Angel is now 16 years and2 months old. Miguel Angel was discharged from [facility] in June 2006, and has been in this foster home since that time. While father reportedly still wants to take careof Miguel Angel, his house will need modifications in order to accommodate Miguel Angel's wheelchair. In the interim, he is with his new foster family indefinitely. Miguel Angel is attending [employer] for twohours per day. He receives [...] reportedly been stable since his discharge from [facility]. While she does not measure [...] medications. I did receive a call from [facility] in April 2006, at which [...] exam. I have requested a repeat free [id number] with his next blood draw. He will [...] Skyler Edwards MD 08/28/2006 13:32 Lincoln Edwards, [facility] [id number] James Zimakas, MD Skyler Edwards MD Division of Pediatric Endocrinology [phone] - Von Edwards MD P - O1 Job ID: [id number] Document ID: [id number] cc: Kris Drew MD documented in this encounter Plan of Treatment Upcoming Encounters Date Type Department Care Team (Late st Contact Info) Description 10/01/2024 13:40 EDT Office Visit [facility] Endocrinology - [facility] [address] [place] [address] Wilder Zaidi, DO [address] [facility] [address] [place] [address] documented as of this encounter Visit Diagnoses Not on filedocumented in this encounter Care Teams Upholstery Estimator Relationship Specialty Start Date End Date Corin Skinner MD [address] [place] [phone] PCP - General 10/24/08 08/21/09 documented as of this encounter
--- OUTSIDE RECORDS SUMMARY | 2024-08-03 13:55 | XMS_ITS | Encounter Summary ---
Author Organization [facility] Address [address] [place] [address] Care Team Providers Care Dowel Inserting Machine Operator Name Role Phone Yan Demarco MD Primary Care Provider Corin Skinner MD Primary Care Provider [phone] [phone] Encounter Details Date Type Department Care Team (Late st Contact Info) Description 08/13/2005 Before PRISM Converted Visit (Maple) [facility] - [place] conversion [address] [place] [address] Skyler Edwards [facility] [address] [place] [address] Social History Tobacco Use Types [...] EST August 13, 2005 Kris Drew MD [address] [place] [address] 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 His mother, renal social worker and two members of his care team at [facility] accompanied him to today's visit. Miguel Angel is now 15 years and one month old. This is his first visit back to the clinic since his transfer to the [facility] in [place]. However I have been in frequent contact with his physician, Dr. Ren Read, at the [facility] to address the multiple endocrine issues. [...] well as his nursing care at the [facility]. He still has no functional vision, has mu ltiple behavioral issues and concern regarding depression for which he is being treated. While the nursing staff is aware of the potential need for stress corticosteroid coverage he has not needed this as he has not had any significant illness since his transfer to the [facility]. I will review Miguel Angel's progress [...] and vitamin D intake. He should target [id number] mg of elemental calcium and 400 to 800 international units of vitamin D per day. This should be reviewed with his correction officer at [facility]. I will adjust his DDAVP and levothyroxine if needed based on today's results. I will see Miguel Angel againin clinic in six months whether he is still at [facility] or has found a suitable foster home in [place]. Thank you for allowing me to participate in the care of this patient. If you have any further questions or concerns, please do not hesitate to contact me. ADDENDUM: free T4 1.4, sodium 134. No change. Thyroid function neded only be rechecked in 6 months unless any clinical change.. Sincerely, Signed by Skyler Edwards MD 08/16/2005 14:06 Lincoln Edwards, [facility] [id number] James Zimakas, MD Skyler Edwards MD Division of Pediatric Endocrinology [phone] - Skyler Edwards MD P - O1 Job ID: [id number] Document ID: [id number] cc: MD Kris Mccauley MD * [facility]. Ren Read, [facility]* documented in this encounter Plan of Treatment Upcoming Encounters Date Type Department Care Team (Late st Contact Info) Description 10/01/2024 13:40 EDT Office Visit [facility] Endocrinology - [address] [address] Wilder Zaidi, DO [address] [phone] documented as of this encounter Visit Diagnoses Not on filedocumented in this encounter Care Teams Dowel Inserting Machine Operator Relationship Specialty Start Date End Date Yan Demarco MD [address] [place] [address] PCP - General 08/22/09 02/20/10 Corin Skinner MD [address] [place] [phone] PCP - General 10/24/08 08/21/09 documented as of this encounter
--- OUTSIDE RECORDS SUMMARY | 2024-08-03 13:55 | XMS_ITS | Encounter Summary ---
Author Organization [facility] Address [address] [place] [address] Care Team Providers Care In House Counsel Name Role Phone Corin Skinner MD Primary Care Provider +1 [phone] Encounter Details Date Type Department Care Team (Late st Contact Info) Description 02/08/2008 Before PRISM Converted Visit (Maple) [facility] - [place] conversion [address] [place] [address] Rui Bazan MD Social History Tobacco Use Types Packs/Day Years Used Date Smoking Tobacco: Never Assessed Sex and Gender Information Value Date Recorded Sex Assigned at Not on file Legal Sex Male 18:35 EST Gender Identity Not on file Sexual Orientation Not on file documented as of this encounter Consult Notes * Rui Bazan III, MD - 04/03/2009 1598 EDT CONSULTATION - 02/08/2008 NEUROLOGY HEALTH CARE [...] before the family had gone out for [employer] food. He had had his medications at the usual time at 4:30 p.m. While at the [employer] the family stated that his body [...] Bazan III, MD - CHRISSY Job ID: [id number] Doc ID: [id number] cc: Yan Demarco MD documented in this encounter Plan of Treatment Upcoming Encounters Date Type Department Care Team (Late st Contact Info) Description 10/01/2024 13:[address] [facility] Endocrinology - [facility] [address] [place] [address] Wilder Zaidi, [address] [facility] [address] [place] [address] documented as of this encounter Visit Diagnoses Not on filedocumented in this encounter Care Teams In House Counsel Relationship Specialty Start Date End Date Corin Skinner MD [address] [place] [phone] PCP - General 10/24/08 08/21/09 documented as of this encounter
--- OUTSIDE RECORDS SUMMARY | 2024-08-03 13:55 | XMS_ITS | Encounter Summary ---
Author Organization [facility] Address [address] [place] [address] Care Team Providers Care Wood Scaler Name Role Phone Unavailable Primary Care Provider Unavailabl e Encounter Details Date Type Department Care Team (Late st Contact Info) Description 02/09/2008 2:41 EDT - 02/12/2008 11:59 EDT Hospital Encounter [facility] Pediatric Unit [address] [place] [address] Jodi Christie MD [address] [facility], [address] [place] [id number] Yossi Murphy MD [address] [facility], [address] [place] [address] Discharge Disposition: Another Health Care Institution Not [...] 01/13/2009 1403 EDT HISS DISCHARGE SUMMARY ADDRESS: [address] [place] [address] PHONE: [phone] ATTENDING PHYSICIAN: JODI CHRISTIE MD ADDRESS: [address] [address] PHONE: [phone] REFERRING PHYSICIAN: YAN GOEL MD ADDRESS: [address] [place] [address] PHONE: [phone] ADMISSION DATE: 02/09/08 SERVICE: PED. MEDICINE TRANSFER [...] STOPPED: NONE HERBAL REMEDIES, NUTRITIONAL SUPPLEMENTS, AND [id number] MEDICATIONS that have not been prescribed by a physician may have significant adverse side effect or may interfere with the medications that have been prescribed for you. If you are taking herbal remedies, nutritional supplements, or djby-zuz-uenqjxp medications you are strongly encouraged to discontinue [...] a history of panhypopituitarism who came to [facility] THE [facility] ER on 02/09/08 due to altered mental status. One week prior the patient had been seen at the [facility] ER following some seizure like activity [...] symptoms on 02/08 he was taken to [facility] AT THE [facility] where he had a Temperature of [...] continued to express interest in transfer to [place] and transport was arranged. He was transferred to [facility] on 02/12/08 by [facility]. Recommendations from Endocrinology 02/11 were [...] JESSIKA RIVERA MD P - ZOHDocument ID: [id number] documented in this encounter Discharge Disposition Disposition [...] panhypopituitarism, who presentedon February 09, 2008, to [facility] ER with severe hyponatremia and mental [...] DISPOSITION Miguel Angel will be transferred to [place] [address] today. His family wishes to seek transfer to [facility], and those investigations are occurring at the time of transfer. CONDITION AT DISCHARGE Stable. Supervising Physician Signed by Otilio Castro MD 02/09/2008 15:43 Wilder Bejarano MD Otilio Castro MD - Wilder Bejarano MD P - CSS Job ID: [id number] Document ID: [id number] cc: MD Otilio Alcantar MD Daniel W [...] the parents have insisted on transfer to [facility]; arrival of transport is expected imminently. I would recommend that he continue on a relatively modest dose of Tuufld244 mg b.i.d., in part because of his [...] Cheng MD P - SS Job ID: [id number] Document ID: [id number] cc: MD Yan Walker MD Christa M Zehle, MD * Lc Cheng MD - 02/11/2008 0000 EDT INPATIENT CONSULTATION Admission Date: 02/09/2008 Date of consultation: 02/11/2008 This is an inpatient pediatric neurologic follow-up consultation/reconsultation on this [id number]-[id number] left hemiparesis, panhypopituitarism, craniopharyngioma resection, new onset [...] Lc Cheng MD P - Job ID: [id number] Document ID: [id number] cc: MD Yan Walker MD Christa M [...] treatment for that including CT at a [facility], was started on phenytoin. Since that time, he has had some decreased responsivenessand balance (phenytoin 100 mg t.i.d.). He came in because of mental status change and has been hospitalized here for the last three days and had correction of what was found to be hyponatremia and temple of his usual DDAVP regime along with [...] his step-mother. His step-mother is his principle landing man. There is no family history of epilepsy. [...] Cheng MD A - SADE Job ID: [id number] Document ID: [id number] cc: MD Rui Walker III, MD Daniel W Larrow, MD Christa M Zehle, MD documented in this encounter Plan of Treatment Upcoming Encounters Date Type Department Care Team (Late st Contact Info) Description 10/01/2024 13:40 EDT Office Visit [facility] Endocrinology - [address] [id number] Wilder Zaidi, [address] [facility] [address] [place] [address] documented as of this encounter [...] S Final Result [facility] [address] [place] [address] * (ABNORMAL) BLOOD GAS, G3 ISTAT (02/12/2008 [...] LAB Sample Type NOT GIVEN [facility] [place] [id number] Test performed by Chemistry [facility] 02/12/2008 10:4 5 EDT 02/12/2008 10:50 EDT us Jodi Christie MD CHEMISTRY & BLOOD GAS ORDERABLE S Final Result Performing Organization Address [facility] de Phone Number [facility] [address] [place] [address] * (ABNORMAL) GLUCOSE, GLUCOMETER (02/12/2008 10:05 EDT) Glucose, Fingerstick 125(H) 70 - 100 mg/dl [facility] Sound Truck Operator ID [id number] Test Performed by Nursing Services [facility] 02/12/2008 10:0 5 EDT 02/13/2008 3:40 EDT us Jodi Christie MD CHEMISTRY & BLOOD GAS ORDERABLE S Final Result Performing Organization Address [facility] de Phone Number [facility] [address] [place] [address] * (ABNORMAL) BLOOD GAS, G3 ISTAT (02/12/2008 8:58 EDT) pH, i-STAT 7.50(H) 7.35 - 7.45 [facility] pCO2, i-STAT 31(L) 35 - 45 mmHg [facility] pO2, i-STAT 248(H) 85 - 100 mmHg [facility] TCO2, i-STAT 25 mEq/L [facility] O2 Saturation 100 % [facility] Base Excess 2 [facility] Sample Type NOT GIVEN [facility] [place] [id number] Test performed by Chemistry [facility] 02/12/2008 8:58 EDT 02/12/2008 9:03 EDT us Jodi Christie MD CHEMISTRY & BLOOD GAS ORDERABLE S Final Result Performing Organization Address [facility] de Phone Number [facility] [address] [place] [address] * (ABNORMAL) GLUCOSE, GLUCOMETER (02/12/2008 8:51 EDT) Glucose, Fingerstick 130(H) 70 - 100 mg/dl [facility] Sound Truck Operator ID [id number] Test Performed by Nursing Services [facility] 02/12/2008 8:51 EDT 02/13/2008 3:29 EDT us Jodi Christie MD CHEMISTRY & BLOOD GAS ORDERABLE S Final Result Performing Organization Address [facility]/ZIP Co de Phone Number [facility] [address] [place] [address] * (ABNORMAL) PHOSPHORUS (02/12/2008 8:35 EDT) Phosphorus 5.6(H) 2.7 - 4.7 mg/dl [facility] Comment: Results may be affected due to hemolysis. Slight hemolysis 02/12/2008 8:35 EDT 02/12/2008 8:48 EDT us Jodi Christie MD CHEMISTRY & BLOOD GAS ORDERABLE S Final Result Performing Organization Address [facility] Co de Phone Number [facility] [address] [place] [address] * MAGNESIUM (02/12/2008 8:35 EDT) Magnesium 2.1 1.7 - 2.8 mg/dl [facility] Comment: Results may be affected due to hemolysis. Slight hemolysis 02/12/2008 8:35 EDT 02/12/2008 8:48 EDT Jodi Christie MD CHEMISTRY & BLOOD GAS ORDERABLE S Final Result Performing Organization Address [facility] Co de Phone Number [facility] [address] [place] [address] * CALCIUM (02/12/2008 8:35 EDT) Calcium 9.2 8.5 - 10.5 mg/dl [facility] Comment:Slight hemolysis Calculated Calcium 8.8 8.5 - 10.5 mg/dl [facility] Comment: Results may be affected due to hemolysis. Slight hemolysis 02/12/2008 8:35 EDT 02/12/2008 8:48 EDT Jodi Christie MD CHEMISTRY & BLOOD GAS ORDERABLE S Final Result Performing Organization Address [facility] de Phone Number [facility] [address] [place] [address] * (ABNORMAL) GLUCOSE, GLUCOMETER (02/12/2008 8:17 EDT) Glucose, Fingerstick 53(L) 70 - 100 mg/dl [facility] Sound Truck Operator ID [id number] Test Performed by Nursing Services [facility] 02/12/2008 8:17 EDT 02/13/2008 3:29 EDT Jodi Christie MD CHEMISTRY & BLOOD GAS ORDERABLE S Final Result Performing Organization Address [facility] de Phone Number [facility] [address] [place] [address] * CREATININE (02/12/2008 5:55 EDT) Creatinine 1.10 0.6 - 1.2 mg/dl [facility] Comment:Heparinized plasma. GFR, Calculated Age <18 Heparinize d plasma. ml/min/1.7 3m2 [facility] 02/12/2008 5:55 EDT 02/12/2008 6:21 EDT Jodi Christie MD CHEMISTRY & BLOOD GAS ORDERABLE S Final Result Performing Organization Address [facility] de Phone Number [facility] [address] [place] [address] * BUN (02/12/2008 5:55 EDT) BUN 15 8 - 21 mg/dl [facility] Comment:Heparinized plasma. 02/12/2008 5:55 EDT 02/12/2008 6:21 EDT us Jodi Christie MD CHEMISTRY & BLOOD GAS ORDERABLE S Final Result Performing Organization Address [facility] de Phone Number [facility] [address] [place] [address] * TESTS ADDED BY PHONE (02/12/2008 5:55 EDT) Tests to be added BUN [facility] Who Called [facility] Location Code B5 [facility] 02/12/2008 5:55 EDT 02/12/2008 6:21 EDT us Jodi Christie MD CHEMISTRY & BLOOD GAS ORDERABLE S Final Result Performing Organization Address [facility] de Phone Number [facility] [address] [place] [address] * (ABNORMAL) ELECTROLYTES (02/12/2008 5:55 EDT) Sodium [...] ORDERABLE S Final Result Performing Organization Address [facility] de Phone Number [facility] [address] [place] [address] * CORTISOL (02/12/2008 2:05 EDT) Cortisol Wrong tube/speci men type ug/dl [facility] Comment:CANNOT BE RUN ON GRE EN MICROTAINER 02/12/2008 2:05 EDT 02/12/2008 2:17 EDT us Jodi Christie MD CHEMISTRY & BLOOD GAS ORDERABLE S Final Result Performing Organization Address [facility] de Phone Number [facility] [address] [place] [address] * TESTS ADDED BY PHONE (02/12/2008 2:05 EDT) Tests to be added [facility] Who Called [facility] Location Code B5 [facility] 02/12/2008 2:05 EDT 02/12/2008 2:17 EDT us Jodi Christie MD CHEMISTRY & BLOOD GAS ORDERABLE S Final Result Performing Organization Address [facility] Phone Number [facility] [address] [place] [address] * (ABNORMAL) ELECTROLYTES (02/12/2008 2:05 EDT) Sodium 146(H) 136 - 145 mEq/L [facility] Potassium 3.9 3.5 - 5.0 mEq/L [facility] Chloride 108 96 - 110 mEq/L [facility] CO2 27 24 - 32 mEq/L [facility] 02/12/2008 2:05 EDT 02/12/2008 2:17 EDT us Jodi Christie MD CHEMISTRY & BLOOD GAS ORDERABLE S Final Result Performing Organization Address [facility] de Phone Number [facility] [address] [place] [address] * (ABNORMAL) BLOOD GAS, G3 ISTAT (02/11/2008 [...] LAB Sample Type NOT GIVEN [facility] compressed gas tester ID [id number] Test performed by Chemistry [facility] 02/11/2008 22:1 5 EDT 02/11/2008 22:20 EDT us Jodi Christie MD CHEMISTRY & BLOOD GAS ORDERABLE S Final Result Performing Organization Address [facility] de Phone Number [facility] [address] [place] [address] * (ABNORMAL) ELECTROLYTES (02/11/2008 21:50 EDT) Sodium [...] ORDERABLE S Final Result Performing Organization Address [facility] de Phone Number [facility] [address] [place] [address] * MR HEAD W/WO CONTRAST (02/11/2008 20:14 [...] ORDERABL ES Final Result Performing Organization Address [facility] de Phone Number [facility] [address] [place] [address] * UA REFLEX (02/11/2008 19:10 EDT) UA Billing Microscopic not indicated. [facility] 02/11/2008 19:1 0 EDT 02/11/2008 19:21 EDT Jodi Christie MD URINALYSIS ORDERABLES Final Res ult Performing Organization Address [facility] de Phone Number [facility] [address] [place] [address] * (ABNORMAL) URINALYSIS, CHEMICAL (02/11/2008 19:10 EDT) Color, UA Straw [facility] Clarity, UA Clear [facility] Glucose, UA Norm NORM [facility] Bilirubin, UA Neg NEG [facility] Ketones, UA Neg NEG [facility] Specific [place], Urine <1.005(L) 1.005 - 1.02 [facility] [...] ORDERABLES Final Res ult Performing Organization Address [facility] de Phone Number [facility] [address] [place] [address] * (ABNORMAL) BLOOD GAS, G3 ISTAT (02/11/2008 [...] LAB Sample Type NOT GIVEN [facility] compressed gas tester ID [id number] Test performed by Chemistry [facility] 02/11/2008 18:4 5 EDT 02/11/2008 18:50 EDT us Jodi Christie MD CHEMISTRY & BLOOD GAS ORDERABLE S Final Result Performing Organization Address [facility] de Phone Number [facility] [address] [place] [address] * CT HEAD WO CONTRAST (02/11/2008 18:44 [...] ORDERABLE S Final Result Performing Organization Address [facility] de Phone Number [facility] [address] [place] [address] * CO2 (02/11/2008 18:12 EDT) CO2 25 24 - 32 mEq/L [facility] 02/11/2008 18:1 2 EDT 02/11/2008 18:40 EDT Jodi Christie MD CHEMISTRY & BLOOD GAS ORDERABLE S Final Result Performing Organization Address [facility] de Phone Number [facility] [address] [place] [address] * CHLORIDE (02/11/2008 18:12 EDT) Chloride 107 96 - 110 mEq/L [facility] 02/11/2008 18:1 2 EDT 02/11/2008 18:40 EDT Jodi Christie MD CHEMISTRY & BLOOD GAS ORDERABLE S Final Result Performing Organization Address [facility] de Phone Number [facility] [address] [place] [address] * (ABNORMAL) SODIUM (02/11/2008 18:12 EDT) Sodium 148(H) 136 - 145 mEq/L [facility] 02/11/2008 18:1 2 EDT 02/11/2008 18:40 EDT Jodi Christie MD CHEMISTRY & BLOOD GAS ORDERABLE S Final Result Performing Organization Address [facility]/ZIP Co de Phone Number [facility] [address] [place] [address] * CREATININE (02/11/2008 18:12 EDT) Pathologist [facility] Creatinine 0.90 0.6 - 1.2 mg/dl [facility] GFR, Calculated Age <18 ml/min/1.7 3m2 [facility] 02/11/2008 18:1 2 EDT 02/11/2008 18:40 EDT us Jodi Christie MD CHEMISTRY & BLOOD GAS ORDERABLE S Final Result Performing Organization Address [facility] de Phone Number [facility] [address] [place] [address] * BUN (02/11/2008 18:12 EDT) [facility] BUN 13 8 - 21 mg/dl [facility] 02/11/2008 18:1 2 EDT 02/11/2008 18:40 EDT us Jodi Christie MD CHEMISTRY & BLOOD GAS ORDERABLE S Final Result Performing Organization Address [facility] de Phone Number [facility] [address] [place] [address] * TESTS ADDED BY PHONE (02/11/2008 18:12 EDT) [facility] Tests to be added LYT STAT [facility] Who Called DR CATHY [facility] Location Code B5 [facility] 02/11/2008 18:1 2 EDT 02/11/2008 18:40 EDT us Jodi Christie MD CHEMISTRY & BLOOD GAS ORDERABLE S Final Result Performing Organization Address [facility] Co de Phone Number [facility] [address] [place] [address] * (ABNORMAL) AMMONIA (02/11/2008 18:12 EDT) Ammonia 40(H) 9 - 33 umol/L [facility] 02/11/2008 18:1 2 EDT 02/11/2008 18:40 EDT Jodi Christie MD CHEMISTRY & BLOOD GAS ORDERABLE S Final Result Performing Organization Address [facility] de Phone Number [facility] [address] [place] [address] * DIFFERENTIAL (02/11/2008 15:28 EDT) Neutrophils 55.0 [...] ORDERABLES Fin al Result Performing Organization Address [facility] Co de Phone Number [facility] [address] [place] [address] * TOTAL & DIRECT BILIRUBIN (02/11/2008 15:28 EDT) Conjugated Bilirubin 0.0 0.0 - 0.3 mg/dl [facility] Unconjugated Bilirubin 0.3 0.1 - 1.1 mg/dl [facility] Bilirubin, Total <0.5 0.0 - 1.4 mg/dl [facility] 02/11/2008 15:2 8 EDT 02/11/2008 15:39 EDT Jodi Christie MD CHEMISTRY & BLOOD GAS ORDERABLE S Final Result [facility] [address] [place] [address] * AST (02/11/2008 15:28 EDT) AST 42 15 - 46 U/L [facility] 02/11/2008 15:2 8 EDT 02/11/2008 15:39 EDT us Jodi Christie MD CHEMISTRY & BLOOD GAS ORDERABLE S Final Result Performing Organization Address [facility]/ZIP Co de Phone Number [facility] [address] [place] [address] * ALT (02/11/2008 15:28 EDT) ALT <11 0 - 45 U/L [facility] 02/11/2008 15:2 8 EDT 02/11/2008 15:39 EDT us Jodi Christie MD CHEMISTRY & BLOOD GAS ORDERABLE S Final Result Performing Organization Address [facility]/ZIP Co de Phone Number [facility] [address] [place] [address] * ALKALINE PHOSPHATASE (02/11/2008 15:28 EDT) Alkaline Phosphatase 179 65 - 260 U/L [facility] 02/11/2008 15:2 8 EDT 02/11/2008 15:39 EDT us Jodi Christie MD CHEMISTRY & BLOOD GAS ORDERABLE S Final Result [facility] [address] [place] [address] * TESTS ADDED BY PHONE (02/11/2008 15:28 EDT) Tests to be added STAT ALT,AST,TDBI L,ALKP [facility] Who Called DR CATHY [facility] Location Code B5 [facility] 02/11/2008 15:2 8 EDT 02/11/2008 15:39 EDT us Jodi Christie MD CHEMISTRY & BLOOD GAS ORDERABLE S Final Result Performing Organization Address [facility] Co de Phone Number [facility] [address] [place] [address] * (ABNORMAL) HEMAGRAM (02/11/2008 15:28 EDT) WBC 5.57 4.6 - 11.2 K/cmm [facility] RBC 5.83(H) 4.50 - 5.30 M/cmm [facility] Hemoglobin 15.2 13.0 - 16.0 gm/dl [facility] HCT 44.7 37.0 - 49.0 % [facility] MCV 77(L) 78 - 98 fl [facility] MCH 26.0 pg [facility] MCHC 33.9 gm/dl [facility] PLT 183 156 - 312 K/cmm [facility] RDW-CV 17.0 % [facility] 02/11/2008 15:2 8 EDT 02/11/2008 15:39 EDT us Jodi Christie MD HEMATOLOGY & PF4 ORDERABLES Fin al Result Performing Organization Address [facility] de Phone Number [facility] [address] [place] [address] * (ABNORMAL) PHOSPHORUS (02/11/2008 15:28 EDT) Phosphorus 4.9(H) 2.7 - 4.7 mg/dl [facility] 02/11/2008 15:2 8 EDT 02/11/2008 15:39 EDT us Jodi Christie MD CHEMISTRY & BLOOD GAS ORDERABLE S Final Result Performing Organization Address [facility] Co de Phone Number [facility] [address] [place] [address] * MAGNESIUM (02/11/2008 15:28 EDT) Magnesium 2.0 1.7 - 2.8 mg/dl [facility] 02/11/2008 15:2 8 EDT 02/11/2008 15:39 EDT Jodi Christie MD CHEMISTRY & BLOOD GAS ORDERABLE S Final Result Performing Organization Address [facility] de Phone Number [facility] [address] [place] [address] * CALCIUM (02/11/2008 15:28 EDT) Calcium 9.1 8.5 - 10.5 mg/dl [facility] Calculated Calcium 9.0 8.5 - 10.5 mg/dl [facility] 02/11/2008 15:2 8 EDT 02/11/2008 15:39 EDT Jodi Christie MD CHEMISTRY & BLOOD GAS ORDERABLE S Final Result Performing Organization Address [facility] de Phone Number [facility] [address] [place] [address] * (ABNORMAL) ELECTROLYTES (02/11/2008 15:28 EDT) Sodium 148(H) 136 - 145 mEq/L [facility] Potassium 4.4 3.5 - 5.0 mEq/L [facility] Chloride 111(H) 96 - 110 mEq/L [facility] CO2 21(L) 24 - 32 mEq/L [facility] 02/11/2008 15:2 8 EDT 02/11/2008 15:39 EDT Jodi Christie MD CHEMISTRY & BLOOD GAS ORDERABLE S Final Result Performing Organization Address [facility] de Phone Number [facility] [address] [place] [address] * GLUCOSE, GLUCOMETER (02/11/2008 15:22 EDT) Glucose, Fingerstick 81 70 - 100 mg/dl [facility] Sound Truck Operator ID [id number] Test Performed by Nursing Services [facility] 02/11/2008 15:2 2 EDT 02/12/2008 1:19 EDT Jodi Christie MD CHEMISTRY & BLOOD GAS ORDERABLE S Final Result Performing Organization Address [facility] Co de Phone Number [facility] [address] [place] [address] * ELECTROLYTES (02/11/2008 6:00 EDT) Sodium 142 136 - 145 mEq/L [facility] Potassium 4.1 3.5 - 5.0 mEq/L [facility] Chloride 103 96 - 110 mEq/L [facility] CO2 26 24 - 32 mEq/L [facility] 02/11/2008 6:00 EDT 02/11/2008 6:15 EDT us Jodi Christie MD CHEMISTRY & BLOOD GAS ORDERABLE S Final Result Performing Organization Address [facility] de Phone Number [facility] [address] [place] [address] * ELECTROLYTES (02/11/2008 2:05 EDT) Sodium 140 136 - 145 mEq/L [facility] Potassium 4.1 3.5 - 5.0 mEq/L [facility] Chloride 104 96 - 110 mEq/L [facility] CO2 24 24 - 32 mEq/L [facility] 02/11/2008 2:05 EDT 02/11/2008 2:32 EDT Jodi Christie MD CHEMISTRY & BLOOD GAS ORDERABLE S Final Result Performing Organization Address [facility] de Phone Number [facility] [address] [place] [address] * (ABNORMAL) ELECTROLYTES (02/10/2008 21:55 EDT) Sodium 142 136 - 145 mEq/L [facility] Potassium 3.9 3.5 - 5.0 mEq/L [facility] Chloride 110 96 - 110 mEq/L [facility] CO2 22(L) 24 - 32 mEq/L [facility] 02/10/2008 21:5 5 EDT 02/10/2008 22:15 EDT Jodi Christie MD CHEMISTRY & BLOOD GAS ORDERABLE S Final Result Performing Organization Address [facility] de Phone Number [facility] [address] [place] [address] * ELECTROLYTES (02/10/2008 18:15 EDT) Sodium 139 136 - 145 mEq/L [facility] Potassium 4.1 3.5 - 5.0 mEq/L [facility] Chloride 103 96 - 110 mEq/L [facility] CO2 25 24 - 32 mEq/L [facility] 02/10/2008 18:1 5 EDT 02/10/2008 19:10 EDT Jodi Christie MD CHEMISTRY & BLOOD GAS ORDERABLE S Final Result Performing Organization Address [facility] de Phone Number [facility] [address] [place] [address] * ELECTROLYTES (02/10/2008 14:00 EDT) Sodium 136 136 - 145 mEq/L [facility] Potassium 3.6 3.5 - 5.0 mEq/L [facility] Chloride 100 96 - 110 mEq/L [facility] CO2 26 24 - 32 mEq/L [facility] 02/10/2008 14:0 0 EDT 02/10/2008 14:33 EDT Jodi Christie MD CHEMISTRY & BLOOD GAS ORDERABLE S Final Result Performing Organization Address [facility] de Phone Number [facility] [address] [place] [address] * (ABNORMAL) ELECTROLYTES (02/10/2008 10:12 EDT) Sodium [...] ORDERABLE S Final Result Performing Organization Address [facility] Co de Phone Number [facility] [address] [place] [address] * GLUCOSE, GLUCOMETER (02/10/2008 8:13 EDT) Glucose, Fingerstick 74 70 - 100 mg/dl [facility] [employer] Truck Operator ID [id number] Test Performed by Nursing Services [facility] 02/10/2008 8:13 EDT 02/10/2008 9:15 EDT Jodi Christie MD CHEMISTRY & BLOOD GAS ORDERABLE S Final Result Performing Organization Address [facility] Co de Phone Number [facility] [address] [place] [address] * ELECTROLYTES (02/10/2008 8:05 EDT) Sodium Marked [...] ORDERABLE S Final Result Performing Organization Address [facility] de Phone Number [facility] [address] [place] [address] * (ABNORMAL) ELECTROLYTES (02/10/2008 4:00 EDT) Sodium 130(L) 136 - 145 mEq/L [facility] Potassium 3.7 3.5 - 5.0 mEq/L [facility] Chloride 95(L) 96 - 110 mEq/L [facility] CO2 23(L) 24 - 32 mEq/L [facility] 02/10/2008 4:00 EDT 02/10/2008 4:29 EDT us Jodi Christie MD CHEMISTRY & BLOOD GAS ORDERABLE S Final Result Performing Organization Address [facility] de Phone Number [facility] [address] [place] [address] * (ABNORMAL) ELECTROLYTES (02/09/2008 23:15 EDT) Sodium [...] ORDERABLE S Final Result Performing Organization Address [facility] de Phone Number [facility] [address] [place] [address] * BACTERIAL CULTURE, URINE (02/09/2008 21:15 EDT) Specimen Description Urine [facility] Result No growth [facility] Report Status Final [id number] [facility] 02/09/2008 21:1 5 EDT 02/09/2008 22:47 EDT Jodi Christie MD MICROBIOLOGY - GENERAL ORDERABL ES Final Result Performing Organization Address [facility] de Phone Number [facility] [address] [place] [address] * CULTURE IF UA POSITIVE (02/09/2008 21:15 EDT) Culture if Indicated Culture indicated by urinalysis results. [facility] 02/09/2008 21:1 5 EDT 02/09/2008 22:00 EDT us Jodi Christie MD MICROBIOLOGY - GENERAL ORDERABL ES Final Result Performing Organization Address [facility] de Phone Number [facility] [address] [place] [address] * (ABNORMAL) ELECTROLYTES (02/09/2008 21:15 EDT) Sodium 127(L) 136 - 145 mEq/L [facility] Potassium 4.1 3.5 - 5.0 mEq/L [facility] Chloride 89(L) 96 - 110 mEq/L [facility] CO2 25 24 - 32 mEq/L [facility] 02/09/2008 21:1 5 EDT 02/09/2008 21:57 EDT Jodi Christie MD CHEMISTRY & BLOOD GAS ORDERABLE S Final Result Performing Organization Address [facility] de Phone Number [facility] [address] [place] [address] * (ABNORMAL) UA WITH MICROSCOPIC (02/09/2008 21:15 EDT) Color, UA Straw [facility] Clarity, UA Hazy [facility] Glucose, UA 1+(A) NORM [facility] Bilirubin, UA Neg NEG [facility] Ketones, UA Neg NEG [facility] Specific [place], Urine <1.005(L) 1.005 - 1.02 [facility] [...] ORDERABLES Final Res ult Performing Organization Address [facility] de Phone Number [facility] [address] [place] [address] * (ABNORMAL) ELECTROLYTES (02/09/2008 18:05 EDT) Sodium [...] ORDERABLE S Final Result Performing Organization Address [facility] Co de Phone Number [facility] [address] [place] [address] * GLUCOSE, GLUCOMETER (02/09/2008 17:59 EDT) Glucose, Fingerstick 98 70 - 100 mg/dl [facility] Sound Truck Operator ID [id number] Test Performed by Nursing Services [facility] 02/09/2008 17:5 9 EDT 02/09/2008 23:28 EDT us Jodi Christie MD CHEMISTRY & BLOOD GAS ORDERABLE S Final Result Performing Organization Address [facility] de Phone Number [facility] [address] [place] [address] * (ABNORMAL) ELECTROLYTES (02/09/2008 16:10 EDT) Sodium [...] ORDERABLE S Final Result Performing Organization Address [facility] de Phone Number [facility] [address] [place] [address] * (ABNORMAL) GLUCOSE, GLUCOMETER (02/09/2008 16:06 EDT) Glucose, Fingerstick 105(H) 70 - 100 mg/dl [facility] Sound Truck Operator ID [id number] Test Performed by Nursing Services [facility] 02/09/2008 16:0 6 EDT 02/09/2008 23:28 EDT us Jodi Christie MD CHEMISTRY & BLOOD GAS ORDERABLE S Final Result Performing Organization Address [facility] de Phone Number [facility] [address] [place] [address] * (ABNORMAL) ELECTROLYTES (02/09/2008 14:09 EDT) Sodium [...] ORDERABLE S Final Result Performing Organization Address [facility] Co de Phone Number [facility] [address] [place] [address] * (ABNORMAL) GLUCOSE, GLUCOMETER (02/09/2008 14:01 EDT) Glucose, Fingerstick 104(H) 70 - 100 mg/dl [facility] [employer] Truck Operator ID [id number] Test Performed by Nursing Services [facility] 02/09/2008 14:0 1 EDT 02/09/2008 23:28 EDT us Jodi Christie MD CHEMISTRY & BLOOD GAS ORDERABLE S Final Result Performing Organization Address [facility] Co de Phone Number [facility] [address] [place] [address] * OSMOLALITY, URINE (02/09/2008 13:37 EDT) Osmolality, Ur 406 MOS/KG [facility] 02/09/2008 13:3 7 EDT 02/09/2008 13:37 EDT us Kris Izquierdo MD URINALYSIS ORDERABLES Final Res ult Performing Organization Address [facility] Co de Phone Number [facility] [address] [place] [address] * SODIUM, URINE RANDOM (02/09/2008 13:37 EDT) Sodium, Ur 91.0 mEq/L [facility] 02/09/2008 13:3 7 EDT 02/09/2008 13:37 EDT Kris Izquierdo MD URINALYSIS ORDERABLES Final Res ult Performing Organization Address [facility] Co de Phone Number [facility] [address] [place] [address] * (ABNORMAL) URINALYSIS, CHEMICAL (02/09/2008 13:37 EDT) Color, UA Straw [facility] Clarity, UA Hazy [facility] Glucose, UA Norm NORM [facility] Bilirubin, UA Neg NEG [facility] Ketones, UA Neg NEG [facility] Specific [place], Urine 1.015 1.005 - 1.02 [facility] [...] ORDERABLES Final Res ult Performing Organization Address [facility] Co de Phone Number [facility] [address] [place] [address] * URINE MICROSCOPIC (02/09/2008 13:37 EDT) WBC, [...] ORDERABLES Final Res ult Performing Organization Address [facility] Co de Phone Number [facility] [address] [place] [address] * (ABNORMAL) T4 FREE (02/09/2008 12:06 EDT) Free T4 0.6(L) 0.8 - 1.5 ng/dL [facility] 02/09/2008 12:0 6 EDT 02/09/2008 12:06 EDT us Kris Izquierdo MD CHEMISTRY & BLOOD GAS ORDERABLE S Final Result Performing Organization Address [facility] Co de Phone Number [facility] [address] [place] [address] * TESTS ADDED BY PHONE (02/09/2008 12:06 EDT) Pathologist [facility] Tests to be added FT4 [facility] Who Called KAYLI FOR DR TONIE [facility] Location Code M3 [facility] 02/09/2008 12:0 6 EDT 02/09/2008 12:06 EDT us Kris Izquierdo MD CHEMISTRY & BLOOD GAS ORDERABLE S Final Result Performing Organization Address [facility] de Phone Number [facility] [address] [place] [address] * (ABNORMAL) ELECTROLYTES (02/09/2008 12:06 EDT) Sodium [...] ORDERABLE S Final Result Performing Organization Address [facility] de Phone Number [facility] [address] [place] [address] * (ABNORMAL) GLUCOSE, GLUCOMETER (02/09/2008 11:59 EDT) Glucose, Fingerstick 102(H) 70 - 100 mg/dl [facility] Sound Truck Operator ID [id number] Test Performed by Nursing Services [facility] 02/09/2008 11:5 9 EDT 02/09/2008 23:28 EDT us Jodi Christie MD CHEMISTRY & BLOOD GAS ORDERABLE S Final Result Performing Organization Address [facility] de Phone Number [facility] [address] [place] [address] * GLUCOSE, GLUCOMETER (02/09/2008 10:09 EDT) Glucose, Fingerstick 82 70 - 100 mg/dl [facility] Sound Truck Operator ID [id number] Test Performed by Nursing Services [facility] 02/09/2008 10:0 9 EDT 02/09/2008 23:28 EDT us Jodi Christie MD CHEMISTRY & BLOOD GAS ORDERABLE S Final Result Performing Organization Address [facility] de Phone Number [facility] [address] [place] [address] * (ABNORMAL) ELECTROLYTES (02/09/2008 9:49 EDT) Sodium [...] ORDERABLE S Final Result Performing Organization Address [facility] Co de Phone Number [facility] [address] [place] [address] * (ABNORMAL) ELECTROLYTES (02/09/2008 8:09 EDT) Sodium [...] ORDERABLE S Final Result Performing Organization Address [facility] de Phone Number [facility] [address] [place] [address] * GLUCOSE, GLUCOMETER (02/09/2008 8:08 EDT) Glucose, Fingerstick 85 70 - 100 mg/dl [facility] Sound Truck Operator ID [id number] Test Performed by Nursing Services [facility] 02/09/2008 8:08 EDT 02/09/2008 23:28 EDT us Jodi Christie MD CHEMISTRY & BLOOD GAS ORDERABLE S Final Result Performing Organization Address [facility] Co de Phone Number [facility] [address] [place] [address] * (ABNORMAL) BLOOD GAS, G3 ISTAT (02/09/2008 [...] [facility] Sample Type VENOUS [facility] compressed gas tester ID [id number] Test Performed by Respiratory [facility] 02/09/2008 8:08 EDT 02/09/2008 8:13 EDT us Kris Izquierdo MD CHEMISTRY & BLOOD GAS ORDERABLE S Final Result Performing Organization Address [facility] Co de Phone Number [facility] [address] [place] [address] * (ABNORMAL) ELECTROLYTES (02/09/2008 6:55 EDT) Sodium [...] ORDERABLE S Final Result Performing Organization Address City/[facility] Co de Phone Number [facility] [address] [place] [address] * (ABNORMAL) BLOOD GAS, G3 ISTAT (02/09/2008 [...] LAB Sample Type NOT GIVEN [facility] [place] [id number] Test performed by Chemistry [facility] 02/09/2008 5:35 EDT 02/09/2008 5:43 EDT us Kris Izquierdo MD CHEMISTRY & BLOOD GAS ORDERABLE S Final Result Performing Organization Address City/[facility]/ZIP Co de Phone Number [facility] [address] [place] [address] * MRSA MOLECULAR DETECTION (02/09/2008 5:18 EDT) Specimen Description Nasal [facility] Result NEGATIVE for Methicillin Resistant Staphylococcus aureus DNA by PCR. [facility] Report Status Final [id number] [facility] 02/09/2008 5:18 EDT 02/09/2008 7:21 EDT Kris Izquierdo MD MICROBIOLOGY - GENERAL ORDERABL ES Final Result Performing Organization Address [facility] Co de Phone Number [facility] [address] [place] [address] * GLUCOSE, SERUM (02/09/2008 5:15 EDT) Glucose, Serum 76 70 - 100 mg/dl [facility] 02/09/2008 5:15 EDT 02/09/2008 5:22 EDT us Kris Izquierdo MD CHEMISTRY & BLOOD GAS ORDERABLE S Final Result Performing Organization Address City/[facility] Co de Phone Number [facility] [address] [place] [address] * (ABNORMAL) CREATININE (02/09/2008 5:15 EDT) Creatinine 0.57(L) 0.6 - 1.2 mg/dl [facility] GFR, Calculated Age <18 ml/min/1.7 3m2 [facility] 02/09/2008 5:15 EDT 02/09/2008 5:22 EDT Kris Izquierdo MD CHEMISTRY & BLOOD GAS ORDERABLE S Final Result Performing Organization Address City/[facility]/ZIP Co de Phone Number [facility] [address] [place] [address] * (ABNORMAL) BUN (02/09/2008 5:15 EDT) BUN 7(L) 8 - 21 mg/dl [facility] 02/09/2008 5:15 EDT 02/09/2008 5:22 EDT us Kris Izquierdo MD CHEMISTRY & BLOOD GAS ORDERABLE S Final Result Performing Organization Address [facility] de Phone Number [facility] [address] [place] [address] * PHOSPHORUS (02/09/2008 5:15 EDT) Phosphorus 3.3 2.7 - 4.7 mg/dl [facility] 02/09/2008 5:15 EDT 02/09/2008 5:22 EDT Kris Izquierdo MD CHEMISTRY & BLOOD GAS ORDERABLE S Final Result Performing Organization Address City/[facility] Co de Phone Number [facility] [address] [place] [address] * (ABNORMAL) MAGNESIUM (02/09/2008 5:15 EDT) Magnesium 1.6(L) 1.7 - 2.8 mg/dl [facility] 02/09/2008 5:15 EDT 02/09/2008 5:22 EDT Kris Izquierdo MD CHEMISTRY & BLOOD GAS ORDERABLE S Final Result Performing Organization Address City/[facility]/ZIP Co de Phone Number [facility] [address] [place] [address] * (ABNORMAL) ELECTROLYTES (02/09/2008 5:15 EDT) Sodium [...] ORDERABLE S Final Result Performing Organization Address [facility] Co de Phone Number [facility] [address] [place] [address] * CULTURE IF UA POSITIVE (02/09/2008 5:15 EDT) Culture if Indicated Culture not indicated by urinalysis results. [facility] 02/09/2008 5:15 EDT 02/09/2008 5:24 EDT Kris Izquierdo MD MICROBIOLOGY - GENERAL ORDERABL ES Final Result Performing Organization Address [facility] de Phone Number [facility] [address] [place] [address] * UA REFLEX (02/09/2008 5:15 EDT) UA Billing Microscopic not indicated. [facility] 02/09/2008 5:15 EDT 02/09/2008 5:24 EDT Kris Izquierdo MD URINALYSIS ORDERABLES Final Res ult Performing Organization Address [facility] Co de Phone Number [facility] [address] [place] [address] * (ABNORMAL) URINALYSIS, CHEMICAL (02/09/2008 5:15 EDT) Color, UA Yellow [facility] Clarity, UA Clear [facility] Glucose, UA Norm NORM [facility] Bilirubin, UA Neg NEG [facility] Ketones, UA Neg NEG [facility] Specific [place], Urine >1.030(H) 1.005 - 1.02 [facility] [...] ORDERABLES Final Res ult Performing Organization Address [facility] Co de Phone Number [facility] [address] [place] [address] * GLUCOSE, GLUCOMETER (02/09/2008 0:01 EDT) Glucose, Fingerstick 96 70 - 100 mg/dl [facility] [employer] Truck Operator ID [id number] Test Performed by Nursing Services [facility] 02/09/2008 0:01 EDT 02/09/2008 19:26 EDT us Jodi Christie MD CHEMISTRY & BLOOD GAS ORDERABLE S Final Result Performing Organization Address City/[facility] Co de Phone Number [facility] [address] [place] [address] documented in this encounter Visit Diagnoses Not on filedocumented in this encounter
--- OUTSIDE RECORDS SUMMARY | 2024-08-03 13:55 | XMS_ITS | Encounter Summary ---
Author Organization [facility] Address [address] [place] [address] Care Team Providers Care Soft Water Mechanic Name Role Phone Corin Skinner MD Primary Care Provider [phone] Encounter Details Date Type Department Care Team (Late st Contact Info) Description 02/11/2008 Before PRISM Converted Visit (Maple) [facility] - Maple conversion [address] [place] [address] Jose Lopez MD PhD [address] [facility]. [address] [place] [phone] Social History Tobacco Use Types Packs/Day Years [...] Jose Lopez MD,PHD ABPN Certified in Neurology [place] [employer] Clinical Neurophysiology - Jose Lopez MD,PHD P - LBR Job ID: [id number] Document ID: [id number] cc: MD Yan Walker MD lbr Job ID: [id number] Document ID: [id number] cc: MD Yan Walker MD documented in this encounter Plan of Treatment Upcoming Encounters Date Type Department Care Team (Late st Contact Info) Description 10/01/2024 13:40 EDT Office Visit [facility] Endocrinology - [facility] [address] [place] [address] Wilder Zaidi, DO [address] [facility] [address] [place] [address] documented as of this encounter Visit Diagnoses Not on filedocumented in this encounter Care Teams Soft Water Mechanic Relationship Specialty Start Date End Date Corin Skinner MD [address] [place] [phone] PCP - General 10/24/08 08/21/09 documented as of this encounter
--- OUTSIDE RECORDS SUMMARY | 2024-08-03 13:55 | XMS_ITS | Encounter Summary ---
Author Organization [facility] Address [address] [place] [address] Care Team Providers Care Basket Maker Name Role Phone Corin Skinner MD Primary Care Provider [phone] Encounter Details Date Type Department Care Team (Late st Contact Info) Description 02/11/2007 Before PRISM Converted Visit (Maple) [facility] - Maple conversion [address] [place] [address] Skyler Edwards [facility] [address] [place] [phone] Social History Tobacco Use Types Packs/Day Years [...] - February 11, 2007 Ren Lynch MD [address], [address] [place] [address] Lynch: I had the pleasure [...] 02/13/2007 14:11 Lincoln Edwards [facility] [id number] James Zimakas, [facility] Von Edwards, [facility] [phone] Skyler Edwards MD Division of Pediatric Endocrinology [phone] Pamerrick Edwards MD P - YASMINE Job ID: [id number] Doc ID: [id number] cc: Ren Lynch MD - Skyler Edwards MD P - yasmine Job ID: [id number] Doc ID: [id number] cc: MD Kris Ricks MD documented in this encounter Plan of Treatment Upcoming Encounters Date Type Department Care Team (Late st Contact Info) Description 10/01/2024 13:40 EDT Office Visit [facility] Endocrinology - [facility] [address] [place], [place] [phone] Wilder Zaidi, [address] [phone] documented as of this encounter Visit Diagnoses Not on filedocumented in this encounter Care Teams Basket Maker Relationship Specialty Start Date End Date Corin Skinner MD [address] [place] [phone] PCP - General 10/24/08 08/21/09 documented as of this encounter
--- OUTSIDE RECORDS SUMMARY | 2024-08-03 13:55 | XMS_ITS | Encounter Summary ---
Author Organization [facility] Address [address] [place] [address] Care Team Providers Care Auto Striper Name Role Phone Yan Demarco MD Primary Care Provider [phone] Corin Skinner MD Primary Care Provider Akil Serrano MD Primary Care Provider [phone] Encounter Details Date Type Department Care Team (Late st Contact Info) Description 08/19/2007 Results Only [facility] - [facility] [address] [place], [place] [phone] [facility] [address] [place] [phone] Social History Tobacco Use Types Packs/Day Years [...] Visit [facility] Endocrinology - [facility] [address] [place] [address] Wilder Zaidi, DO [address] [facility] [address] [place] [address] documented as of this encounter [...] 5 EST 08/19/2007 11:20 EST Skyler Edwards [facility] CHEMISTRY & BL OOD GAS ORDERABLES Final Result Performing Organization Address City/[facility] Co de Phone Number [facility] [address] [place] [address] * LH (08/19/2007 11:15 EST) Pathologist [facility] LH <0.1 mIU/ml [facility] 08/19/2007 11:1 5 EST 08/19/2007 11:20 EST Skyler Edwards [facility] CHEMISTRY & BL OOD GAS ORDERABLES Final Result Performing Organization Address City/[facility] Co de Phone Number [facility] [address] [place] [address] * T4 FREE (08/19/2007 11:15 EST) Free T4 0.8 0.8 - 1.5 ng/dL [facility] 08/19/2007 11:1 5 EST 08/19/2007 11:20 EST Skyler Aburto Grace [facility] CHEMISTRY & BL OOD GAS ORDERABLES Final Result [facility] [address] [place] [address] * FSH (08/19/2007 11:15 EST) Pathologist [facility] FSH <0.3 mIU/ml [facility] 08/19/2007 11:1 5 EST 08/19/2007 11:20 EST Skyler Aburto Grace [facility] CHEMISTRY & BL OOD GAS ORDERABLES Final Result Performing Organization Address [facility] Co de Phone Number [facility] [address] [place] [address] * (ABNORMAL) COMPREHENSIVE METABOLIC PANEL (08/19/2007 11:15 EST) Pathologist [facility] Potassium 3.7 3.5 - 5.0 mEq/L [facility]HA [...] 5 EST 08/19/2007 11:20 EST Skyler Edwards [facility] CHEMISTRY & BL OOD GAS ORDERABLES Final Result [facility] [address] [place] [address] documented in this encounter Visit Diagnoses Not on filedocumented in this encounter Care Teams Auto Striper Relationship Specialty Start Date End Date Yan Demarco MD [address] [place] [address] PCP - General 08/22/09 02/20/10 Corin Skinner MD [address] [place] [phone] PCP - General 10/24/08 08/21/09 Akil Serrano MD [address] [facility] [address] [place] [address] PCP - General 02/21/10 04/16/11 documented as of this encounter
--- OUTSIDE RECORDS SUMMARY | 2024-08-03 13:55 | XMS_ITS | Encounter Summary ---
Author Organization [facility] Address [address] [place] [address] Care Team Providers Care Vp Client Services Name Role Phone Corin Skinner MD Primary Care Provider Encounter Details Date Type Department Care Team (Late st Contact Info) Description 08/19/2007 Before PRISM Converted Visit (Maple) [facility] - Maple conversion [address] [place] [address] Skyler Edwards [facility] [address] [place] [phone] Social History Tobacco Use Types Packs/Day Years Used Date Smoking Tobacco: Never Assessed Sex and Gender Information Value Date Recorded Sex Assigned at Not on file Legal Sex Male 18:35 EST Gender Identity Not on file Sexual Orientation Not on file documented as of this encounter Progress Notes * Skyler Edwards MD - 05/17/2009 1424 EST PROGRESS/FOLLOWUP NOTE - Yan Demarco M.D. [facility] [address] [place] [address] [address] [place] [address] Demarco: I had the pleasure [...] stepmother, aunt, and father [facility]. Miguel Angel is now 17 years and 2 months old. Since our last visit, he has needed stress corticosteroid coverage on two occasions; for an upper respiratory tract infection and one gastrointestinal illness but did not require ER visits for these. There have been several significant changes in Miguel Angel's living situation. Parents have moved to [facility], and so Miguel Angel stays with them only on the weekends and stays with his aunt on weekdays so that he may continue to attend the [employer]. Both aunt and stepmother, who are [...] other significant changes from previous. I contacted [facility] [place] [facility] to obtain all of the blood work [...] he is receiving locally and through the [facility]. I have recommended that a referral be made to Dr. Drew Larson, our rn pediatric icu, who has seen Miguel Angel in the [...] Skyler Edwards MD Division of Pediatric Endocrinology [phone] - Skyler Edwards MD P - YASMINE Job ID: [id number] Doc ID: [id number] cc: MD Yan Mancera MD P - yasmine Job ID: [id number] Doc ID: [id number] cc: MD Yan Mancera MD documented in this encounter Plan of Treatment Upcoming Encounters Date Type Department Care Team (Late st Contact Info) Description 10/01/2024 13:40 EDT Office Visit [facility] Endocrinology - [facility] [address] [place] [address] Wilder Zaidi, [address] [facility] [address] [place] [address] documented as of this encounter Visit Diagnoses Not on filedocumented in this encounter Care Teams Vp Client Services Relationship Specialty Start Date End Date Corin Skinner MD [address] [place] [phone] PCP - General 10/24/08 08/21/09 documented as of this encounter
--- OUTSIDE RECORDS SUMMARY | 2024-08-03 13:55 | XMS_ITS | Encounter Summary ---
Author Organization [facility] Address [address] [place] [address] Care Team Providers Care Design Assistant Name Role Phone Unavailable Primary Care Provider Unavailabl e Encounter Details Date Type Department Care Team (Late st Contact Info) Description 11/27/2007 19:42 EDT - 11/30/2007 11:59 EDT Hospital Encounter [facility] Pediatric Unit [address] [place], [place] [address] [place] Enriquez MD MSc [address] [place] [phone] Neo Benitez MD [address] [place] [phone] Discharge Disposition: Home or Self Care [...] NUMBER: Inpatient EEG 2007 REFERRING PROVIDER: Yossi Gacria MD,PhD CLINICAL HISTORY Patient with a previous [...] Jose Lopez MD,PHD ABPN Certified in Neurology [place] Board Clinical Neurophysiology - Jose Lopez MD,PHD P - LBR Job ID: [id number] Document ID: [id number] cc: Yossi Garcia MD,PhD Jose Lopez MD,PHD P - lbr Job ID: [id number] Document ID: [id number] cc: Yossi Garcia MD,PhD documented in this [...] and neurological impairment. He was admitted to [facility] on November 27, 2007, from an outside hospital with mental status changes and hyponatremia, which has since been corrected. Following his surgery, he has been left with cognitive deficits and has spent considerable time in rehabilitation and is followed by Dr. Feliciano at [facility] for behavioral problems. After talking with his [...] alternate taking care of him. He attends [employer] in [place], [place]. His biological mother two years ago [...] morning to get prepared to go to [employer], his school for the day, and so [...] limited due to his cognitivedeficits. 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 Huntly II: Deferred. 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, diabetes [...] Harris MD A - SS Job ID: [id number] Document ID: [id number] cc: MD Yan Cleveland MD Alisson L Richards, MD Jillian Sullivan, MD Jillian Sullivan, MD documented in this encounter Plan of Treatment Upcoming Encounters Date Type Department Care Team (Late st Contact Info) Description 10/01/2024 13:40 EDT Office Visit [facility] Endocrinology - [address] [address] Wilder Zaidi, DO [address] [place] [address] [address] [place] [address] documented as of this [...] GAS ORDERABLES Final Result Performing Organization Address [facility] de Phone Number [facility] [address] [place] [address] * GLUCOSE, GLUCOMETER (11/30/2007 6:14 EDT) Glucose, Fingerstick 70 70 - 100 mg/dl [facility] [employer] [place] [id number] Test Performed by Nursing Services [facility] 11/30/2007 6:14 EDT 11/30/2007 23:34 EDT Florida Enriquez MD MSc CHEMISTRY & BLOOD GAS ORDERABLES Final Result Performing Organization Address City/[facility] Co de Phone Number [facility] [address] [place] [address] * SODIUM (11/30/2007 6:00 EDT) Sodium 139 136 - 145 mEq/L [facility] 11/30/2007 6:00 EDT 11/30/2007 7:15 EDT us [place] Enriquez MD MSc CHEMISTRY & BLOOD GAS ORDERABLES Final Result Performing Organization Address City/[facility] Co de Phone Number [facility] [address] [place] [address] * GLUCOSE, SERUM (11/29/2007 18:00 EDT) Glucose, Serum 78 70 - 100 mg/dl [facility] 11/29/2007 18:0 0 EDT 11/29/2007 19:03 EDT us Florida Enriquez MD MSc CHEMISTRY & BLOOD GAS ORDERABLES Final Result Performing Organization Address [facility] de Phone Number [facility] [address] [place] [address] * SODIUM (11/29/2007 18:00 EDT) Sodium 139 136 - 145 mEq/L [facility] 11/29/2007 18:0 0 EDT 11/29/2007 19:03 EDT Florida Enriquez MD MSc CHEMISTRY & BLOOD GAS ORDERABLES Final Result Performing Organization Address [facility] de Phone Number [facility] [address] [place] [address] * GLUCOSE, SERUM (11/29/2007 8:36 EDT) Glucose, Serum 78 70 - 100 mg/dl [facility] 11/29/2007 8:36 EDT 11/29/2007 8:42 EDT us Florida Enriquez MD MSc CHEMISTRY & BLOOD GAS ORDERABLES Final Result Performing Organization Address [facility] de Phone Number [facility] [address] [place] [address] * SODIUM (11/29/2007 8:36 EDT) Sodium 144 136 - 145 mEq/L [facility] 11/29/2007 8:36 EDT 11/29/2007 8:42 EDT Florida Enriquez MD MSc CHEMISTRY & BLOOD GAS ORDERABLES Final Result Performing Organization Address City/[facility]/ZIP Co de Phone Number [facility] [address] [place] [address] * GLUCOSE, SERUM (11/29/2007 3:22 EDT) Glucose, Serum 87 70 - 100 mg/dl [facility] 11/29/2007 3:22 EDT 11/29/2007 3:27 EDT Florida Enriquez MD MSc CHEMISTRY & BLOOD GAS ORDERABLES Final Result Performing Organization Address [facility] Co de Phone Number [facility] [address] [place] [address] * SODIUM (11/29/2007 3:22 EDT) Sodium 141 136 - 145 mEq/L [facility] 11/29/2007 3:22 EDT 11/29/2007 3:27 EDT Florida Enriquez MD MSc CHEMISTRY & BLOOD GAS ORDERABLES Final Result Performing Organization Address [facility] Co de Phone Number [facility] [address] [place] [address] * (ABNORMAL) GLUCOSE, SERUM (11/29/2007 0:23 EDT) Glucose, Serum 101(H) 70 - 100 mg/dl [facility] 11/29/2007 0:23 EDT 11/29/2007 0:23 EDT Florida Enriquez MD MSc CHEMISTRY & BLOOD GAS ORDERABLES Final Result Performing Organization Address [facility] de Phone Number [facility] [address] [place] [address] * SODIUM (11/29/2007 0:23 EDT) Sodium 142 136 - 145 mEq/L [facility] 11/29/2007 0:23 EDT 11/29/2007 0:23 EDT Florida Enriquez MD MSc CHEMISTRY & BLOOD GAS ORDERABLES Final Result Performing Organization Address [facility] Co de Phone Number [facility] [address] [place] [address] * SODIUM (11/28/2007 16:00 EDT) Sodium 143 136 - 145 mEq/L [facility] 11/28/2007 16:0 0 EDT 11/28/2007 21:30 EDT Florida Enriquez MD MSc CHEMISTRY & BLOOD GAS ORDERABLES Final Result Performing Organization Address [facility] Phone Number [facility] [address] [place] [address] * GLUCOSE, SERUM (11/28/2007 12:00 EDT) Glucose, Serum 73 70 - 100 mg/dl [facility] 11/28/2007 12:0 0 EDT 11/28/2007 12:12 EDT Florida Enriquez MD MSc CHEMISTRY & BLOOD GAS ORDERABLES Final Result Performing Organization Address [facility] Phone Number [facility] [address] [place] [address] * PHOSPHORUS (11/28/2007 12:00 EDT) Phosphorus 4.6 2.7 - 4.7 mg/dl [facility] 11/28/2007 12:0 0 EDT 11/28/2007 12:12 EDT Florida Enriquez MD MSc CHEMISTRY & BLOOD GAS ORDERABLES Final Result Performing Organization Address [facility] de Phone Number [facility] [address] [place] [address] * MAGNESIUM (11/28/2007 12:00 EDT) Magnesium 1.9 1.7 - 2.8 mg/dl [facility] 11/28/2007 12:0 0 EDT 11/28/2007 12:12 EDT Florida Enriquez MD MSc CHEMISTRY & BLOOD GAS ORDERABLES Final Result Performing Organization Address [facility] de Phone Number [facility] [address] [place] [address] * ELECTROLYTES (11/28/2007 12:00 EDT) Pathologist [facility] Sodium 137 136 - 145 mEq/L [facility] Potassium 4.2 3.5 - 5.0 mEq/L [facility] Chloride 99 96 - 110 mEq/L [facility] CO2 26 24 - 32 mEq/L [facility] 11/28/2007 12:0 0 EDT 11/28/2007 12:12 EDT Florida Enriquez MD MSc CHEMISTRY & BLOOD GAS ORDERABLES Final Result Performing Organization Address [facility] de Phone Number [facility] [address] [place] [address] * (ABNORMAL) HEMAGRAM AND DIFFERENTIAL (11/28/2007 12:00 EDT) Pathologist [facility] WBC 3.60(L) 4.6 - 11.2 K/cmm [facility] [...] BE ORDERABLES Final Result Performing Organization Address [facility] Co de Phone Number [facility] [address] [place] [address] * CALCIUM (11/28/2007 12:00 EDT) Calcium 9.4 8.5 - 10.5 mg/dl [facility] Calculated Calcium 9.1 8.5 - 10.5 mg/dl [facility] 11/28/2007 12:0 0 EDT 11/28/2007 12:12 EDT Florida Enriquez MD MSc CHEMISTRY & BLOOD GAS ORDERABLES Final Result Performing Organization Address [facility] de Phone Number [facility] [address] [place] [address] * TESTS ADDED BY PHONE (11/28/2007 12:00 EDT) Tests to be added NA [facility] Who Called [facility] SHAKIR [facility] Location Code B5 [facility] 11/28/2007 12:0 0 EDT 11/28/2007 12:12 EDT Florida Enriquez MD MSc CHEMISTRY & BLOOD GAS ORDERABLES Final Result Performing Organization Address [facility] de Phone Number [facility] [address] [place] [address] * SODIUM (11/28/2007 8:15 EDT) Sodium 138 136 - 145 mEq/L [facility] 11/28/2007 8:15 EDT 11/28/2007 8:52 EDT us Florida Enriquez MD MSc CHEMISTRY & BLOOD GAS ORDERABLES Final Result Performing Organization Address [facility] Phone Number [facility] [address] [place] [address] * GLUCOSE, SERUM (11/28/2007 4:15 EDT) Glucose, Serum 79 70 - 100 mg/dl [facility] 11/28/2007 4:15 EDT 11/28/2007 4:22 EDT Florida Enriquez MD MSc CHEMISTRY & BLOOD GAS ORDERABLES Final Result Performing Organization Address [facility] Phone Number [facility] [address] [place] [address] * (ABNORMAL) SODIUM (11/28/2007 4:15 EDT) Sodium 135(L) 136 - 145 mEq/L [facility] 11/28/2007 4:15 EDT 11/28/2007 4:22 EDT us Florida Enriquez MD MSc CHEMISTRY & BLOOD GAS ORDERABLES Final Result Performing Organization Address [facility] Phone Number [facility] [address] [place] [address] * CT HEAD WO CONTRAST (11/28/2007 2:42 [...] GAS ORDERABLES Final Result Performing Organization Address [facility] de Phone Number [facility] [address] [place] [address] * GLUCOSE, GLUCOMETER (11/27/2007 23:47 EDT) Glucose, Fingerstick 80 70 - 100 mg/dl [facility] [employer] [place] [id number] Test Performed by Nursing Services [facility] 11/27/2007 23:4 7 EDT 11/27/2007 23:48 EDT Florida Enriquez MD, MSc CHEMISTRY & BLOOD GAS ORDERABLES Final Result Performing Organization Address [facility] de Phone Number [facility] [address] [place] [address] * (ABNORMAL) GLUCOSE, GLUCOMETER (11/27/2007 18:32 EDT) Glucose, Fingerstick 52(L) 70 - 100 mg/dl [facility] [employer] [place] [id number] Test Performed by Nursing Services [facility] 11/27/2007 18:3 2 EDT 11/27/2007 23:48 EDT Florida Enriquez MD MSc CHEMISTRY & BLOOD GAS ORDERABLES Final Result Performing Organization Address [facility] de Phone Number [facility] [address] [place] [address] documented in this encounter Visit Diagnoses Not on filedocumented in this encounter
--- OUTSIDE RECORDS SUMMARY | 2024-08-03 13:55 | XMS_ITS | Encounter Summary ---
Author Organization [facility] Address [address] [place] [address] Care Team Providers Care Cad Drafter Name Role Phone Unavailable Primary Care Provider Unavailabl e Encounter Details Date Type Department Care Team (Late st Contact Info) Description 11/28/2007 8:34 EDT - 11/28/2007 11:59 EDT Hospital Encounter [facility] [place] [address] [place] [address] Desean Huerta MD [address] [facility]. [address] [place] [phone] Discharge Disposition: Auto Discharge Social History Tobacco [...] EDT Office Visit [facility] Endocrinology - [facility] [address] [place] [address] Wilder Zaidi, 62 [facility] [address] [place] [phone] documented as of this encounter Procedures Procedure [...] BLES Final Result [facility] [address] [place] [address] * (ABNORMAL) TSH (04/11/2008 8:55 EDT) TSH <0.02(L) 0.35 - 5.00 uIU/mL [facility] 04/11/2008 8:55 EDT 04/11/2008 9:09 EDT us Default Emergency MD CHEMISTRY & BLOOD GAS ORDER LYNDSEY Final Result Performing Organization Address [facility] Co de Phone Number [facility] [address] [place] [address] * (ABNORMAL) T4 FREE (04/11/2008 8:55 EDT) Free T4 1.7(H) 0.8 - 1.5 ng/dL [facility] 04/11/2008 8:55 EDT 04/11/2008 9:09 EDT us Default Emergency CHEMISTRY & BLOOD GAS ORDER LYNDSEY Final Result Performing Organization Address [facility] Co de Phone Number [facility] [address] [place] [address] * GLUCOSE, SERUM (04/11/2008 8:55 EDT) Glucose, Serum 79 70 - 100 mg/dl [facility] 04/11/2008 8:55 EDT 04/11/2008 9:09 EDT us Default Emergency CHEMISTRY & BLOOD GAS ORDER LYNDSEY Final Result Performing Organization Address City/[facility]/ZIP Co de Phone Number [facility] [address] [place] [address] * CREATININE (04/11/2008 8:55 EDT) Creatinine 0.60 0.6 - 1.2 mg/dl [facility] GFR, Calculated Age <18 ml/min/1.7 3m2 [facility] 04/11/2008 8:55 EDT 04/11/2008 9:09 EDT us Default Emergency MD CHEMISTRY & BLOOD GAS ORDER LYNDSEY Final Result Performing Organization Address [facility] de Phone Number [facility] [address] [place] [address] * BUN (04/11/2008 8:55 EDT) BUN 14 8 - 21 mg/dl [facility] 04/11/2008 8:55 EDT 04/11/2008 9:09 EDT us Default Emergency MD CHEMISTRY & BLOOD GAS ORDER LYNDSEY Final Result Performing Organization Address [facility] de Phone Number [facility] [address] [place] [address] * (ABNORMAL) ELECTROLYTES (04/11/2008 8:55 EDT) Sodium 131(L) 136 - 145 mEq/L [facility] Potassium 4.4 3.5 - 5.0 mEq/L [facility] Chloride 95(L) 96 - 110 mEq/L [facility] CO2 25 24 - 32 mEq/L [facility] 04/11/2008 8:55 EDT 04/11/2008 9:09 EDT us Default Emergency MD CHEMISTRY & BLOOD GAS ORDER LYNDSEY Final Result Performing Organization Address [facility] de Phone Number [facility] [address] [place] [address] * PORTABLE CHEST 1 VIEW (02/12/2008 14:29 [...] 70 - 100 mg/dl [facility] Powder Line Repairer ID [id number] Test Performed by Nursing Services [facility] 02/08/2008 23:3 8 EDT 02/09/2008 6:19 EDT us Provider Olga PANG CHEMISTRY & BLOOD GAS ORDERA BLES Final Result [facility] [address] [place] [address] * PHOSPHORUS (02/08/2008 22:45 EDT) Phosphorus 4.0 2.7 - 4.7 mg/dl [facility] 02/08/2008 22:4 5 EDT 02/08/2008 22:58 EDT us Default Emergency MD CHEMISTRY & BLOOD GAS ORDER LYNDSEY Final Result Performing Organization Address City/[facility] Co de Phone Number [facility] [address] [place] [address] * (ABNORMAL) MAGNESIUM (02/08/2008 22:45 EDT) Magnesium 1.4(L) 1.7 - 2.8 mg/dl [facility] 02/08/2008 22:4 5 EDT 02/08/2008 22:58 EDT us Default Emergency MD CHEMISTRY & BLOOD GAS ORDER LYNDSEY Final Result Performing Organization Address [facility] de Phone Number [facility] [address] [place] [address] * CALCIUM (02/08/2008 22:45 EDT) Calcium 8.6 8.5 - 10.5 mg/dl [facility] Calculated Calcium 9.3 8.5 - 10.5 mg/dl [facility] 02/08/2008 22:4 5 EDT 02/08/2008 22:58 EDT Default Emergency MD CHEMISTRY & BLOOD GAS ORDER LYNDSEY Final Result Performing Organization Address [facility] de Phone Number [facility] [address] [place] [address] * CORTISOL (02/08/2008 22:45 EDT) Cortisol 9 ug/dl [facility] Comment: 7-9a.m.=4.3-22.4 3-5p.m.=3.1-16.7 02/08/2008 22:4 5 EDT 02/08/2008 22:58 EDT us Default Emergency MD CHEMISTRY & BLOOD GAS ORDER LYNDSEY Final Result Performing Organization Address City/[facility] Co de Phone Number [facility] [address] [place] [address] * GLUCOSE, SERUM (02/08/2008 22:45 EDT) Pathologist [facility] Glucose, Serum 87 70 - 100 mg/dl [facility] 02/08/2008 22:4 5 EDT 02/08/2008 22:58 EDT us Default Emergency MD CHEMISTRY & BLOOD GAS ORDER LYNDSEY Final Result Performing Organization Address [facility] de Phone Number [facility] [address] [place] [address] * (ABNORMAL) BUN (02/08/2008 22:45 EDT) Pathologist [facility] BUN 6(L) 8 - 21 mg/dl [facility] 02/08/2008 22:4 5 EDT 02/08/2008 22:58 EDT Default Emergency MD CHEMISTRY & BLOOD GAS ORDER LYNDSEY Final Result Performing Organization Address [facility] de Phone Number [facility] [address] [place] [address] * (ABNORMAL) ELECTROLYTES (02/08/2008 22:45 EDT) Pathologist [...] ORDER LYNDSEY Final Result Performing Organization Address [facility] de Phone Number [facility] [address] [place] [address] * (ABNORMAL) CREATININE (02/08/2008 22:45 EDT) Pathologist [facility] Creatinine 0.40(L) 0.6 - 1.2 mg/dl [facility] GFR, Calculated Age <18 ml/min/1.7 3m2 [facility] 02/08/2008 22:4 5 EDT 02/08/2008 22:58 EDT Default Emergency MD CHEMISTRY & BLOOD GAS ORDER LYNDSEY Final Result Performing Organization Address [facility] de Phone Number [facility] [address] [place] [address] * PHENYTOIN (02/08/2008 22:45 EDT) Pathologist [facility] Phenytoin 12.9 ug/ml [facility] Calculated Phenytoin 13.4 ug/ml [facility] Comment: Calculated phenytoin is adjusted for albumin level. 02/08/2008 22:4 5 EDT 02/08/2008 22:58 EDT Default Emergency MD CHEMISTRY & BLOOD GAS ORDER LYNDSEY Final Result Performing Organization Address [facility] de Phone Number [facility] [address] [place] [address] * (ABNORMAL) HEMAGRAM AND DIFFERENTIAL (02/08/2008 22:45 EDT) [facility] WBC 3.05(L) 4.6 - 11.2 K/cmm [facility] [...] Final Result Performing Organization Address [facility] Co de Phone Number [facility] [address] [place] [address] * (ABNORMAL) GLUCOSE, PLASMA (02/08/2008 17:12 EDT) Glucose, Plasma 64(L) 70 - 100 mg/dl [facility] 02/08/2008 17:1 2 EDT 02/08/2008 17:14 EDT Rui Bazan MD CHEMISTRY & BLOOD GAS ORDERABL ES Final Result Performing Organization Address [facility] de Phone Number [facility] [address] [place] [address] * (ABNORMAL) CREATININE (02/08/2008 17:12 EDT) Creatinine 0.57(L) 0.6 - 1.2 mg/dl [facility] GFR, Calculated Age <18 ml/min/1.7 3m2 [facility] 02/08/2008 17:1 2 EDT 02/08/2008 17:14 EDT Rui Bazan MD CHEMISTRY & BLOOD GAS ORDERABL ES Final Result Performing Organization Address [facility] Co de Phone Number [facility] [address] [place] [address] * PHENYTOIN (02/08/2008 17:12 EDT) Phenytoin 11.3 ug/ml [facility] Calculated Phenytoin 9.9 ug/ml [facility] Comment: Calculated phenytoin is adjusted for albumin level. 02/08/2008 17:1 2 EDT 02/08/2008 17:14 EDT Rui Bazan MD CHEMISTRY & BLOOD GAS ORDERABL ES Final Result Performing Organization Address [facility] de Phone Number [facility] [address] [place] [address] * (ABNORMAL) LIVER FUNCTION TESTS (02/08/2008 17:12 [...] Final Result Performing Organization Address [facility] Co de Phone Number [facility] [address] [place] [address] * (ABNORMAL) ELECTROLYTES (02/08/2008 17:12 EDT) Sodium [...] Final Result Performing Organization Address [facility] Co de Phone Number [facility] [address] [place] [address] * (ABNORMAL) HEMAGRAM (02/08/2008 17:12 EDT) WBC [...] ORDERABLES Fi nal Result Performing Organization Address [facility] de Phone Number [facility] [address] [place] [address] * MR HEAD W/WO CONTRAST (11/29/2007 22:06 [...]
--- OUTSIDE RECORDS SUMMARY | 2024-08-03 13:55 | XMS_ITS | Encounter Summary ---
Author Organization [facility] Address [address] [place] [address] Care Team Providers Care Roll Winder Name Role Phone Unavailable Primary Care Provider Unavailabl e Encounter Details Date Type Department Care Team (Late st Contact Info) Description 05/23/2006 7:52 EST - 05/23/2006 11:59 EST Hospital Encounter [facility] Perioperative Services- [facility] [address] [place], [place] [address] Jason Olea MD [address] [facility], [address] [place] [address] Marvin Perez MD [address] [place] [phone] Discharge Disposition: Home or Self Care [...] [facility] - [facility] [address] [place], [place] [id number] Wilder Zaidi, 62 [facility] [address] [place] [phone] documented as of this encounter Procedures [...] void ??is seen in the intracranial vessels. [id number] D: ??05/24/2006 11:09 T: ??05/26/2006 17:31 Addendum [...] void is seen in the intracranial vessels. [id number] Addendum Begins MRI of the brain was done with and without IV contrast. Addendum Ends Jason Olea MD [facility] ORDERABLES Final Re sult documented in this encounter Visit Diagnoses Not on filedocumented in this encounter
--- OUTSIDE RECORDS SUMMARY | 2024-08-03 13:55 | XMS_ITS | Encounter Summary ---
Author Organization [facility] Address [address] [place] [address] Care Team Providers Care Technical Communicator Name Role Phone Yan Demarco MD Primary Care Provider Corin Skinner MD Primary Care Provider Akil Serrano MD Primary Care Provider [phone] Encounter Details Date Type Department Care Team (Late st Contact Info) Description 11/27/2007 Results Only [facility] - [place] conversion [address] [place], [place] [address] Emergency, MD Diya Social History Tobacco Use [...] Health [facility] Endocrinology - [facility] [address] [place], [place] [id number] Wilder Zaidi, 62 [facility] [address] [place] [address] documented as of this encounter [...] ORDER LYNDSEY Final Result Performing Organization Address [facility] Co de Phone Number [facility] [address] [place] [address] * (ABNORMAL) ELECTROLYTES (11/27/2007 18:20 EDT) Sodium [...] ORDER LYNDSEY Final Result Performing Organization Address City/[facility]/ZIP Co de Phone Number [facility] [address] [place] [address] * T4 FREE (11/27/2007 18:20 EDT) [facility] Free T4 0.9 0.8 - 1.5 ng/dL [facility] 11/27/2007 18:2 0 EDT 11/27/2007 18:51 EDT Default Emergency MD CHEMISTRY & BLOOD GAS ORDER LYNDSEY Final Result Performing Organization Address City/[facility]/ZIP Co de Phone Number [facility] [address] [place] [address] * CREATININE (11/27/2007 18:20 EDT) [facility] Creatinine 0.60 0.6 - 1.2 mg/dl [facility] GFR, Calculated Age <18 ml/min/1.7 3m2 [facility] 11/27/2007 18:2 0 EDT 11/27/2007 18:51 EDT us Default Emergency MD CHEMISTRY & BLOOD GAS ORDER LYNDSEY Final Result Performing Organization Address City/[facility] Co de Phone Number [facility] [address] [place] [address] * (ABNORMAL) HEMAGRAM AND DIFFERENTIAL (11/27/2007 18:20 EDT) [facility] WBC 4.74 4.6 - 11.2 K/cmm [facility] [...] ORDERA BLES Final Result Performing Organization Address City/[facility]/ZIP Co de Phone Number [facility] [address] [place] [address] * BUN (11/27/2007 18:20 EDT) BUN 9 8 - 21 mg/dl [facility] 11/27/2007 18:2 0 EDT 11/27/2007 18:51 EDT us Default Emergency MD CHEMISTRY & BLOOD GAS ORDER LYNDSEY Final Result Performing Organization Address [facility]/ZIP Co de Phone Number [facility] [address] [place] [address] * TESTS ADDED BY PHONE (11/27/2007 18:20 EDT) Tests to be added STAT SGL [facility] Who Called [facility] Location Code Emergency Department [facility] 11/27/2007 18:2 0 EDT 11/27/2007 18:51 EDT us Default Emergency MD CHEMISTRY & BLOOD GAS ORDER LYNDSEY Final Result Performing Organization Address [facility] Co de Phone Number [facility] [address] [place] [address] * TESTS ADDED BY PHONE (11/27/2007 18:20 EDT) Tests to be added FT4 [facility] Who Called [facility] Location Code Emergency Department [facility] 11/27/2007 18:2 0 EDT 11/27/2007 18:51 EDT us Default Emergency CHEMISTRY & BLOOD GAS ORDER LYNDSEY Final Result [facility] [address] [place] [address] documented in this encounter Visit Diagnoses Not on filedocumented in this encounter Care Teams Technical Communicator Relationship Specialty Start Date End Date Yan Demarco MD [address] [place] [address] PCP - General 08/22/09 02/20/10 Corin Skinner MD [address] [place] [phone] PCP - General 10/24/08 08/21/09 Akil Serrano MD [address] [place] [address],[facility] [address] [place] [address] PCP - General 02/21/10 04/16/11 documented as of this encounter
--- OUTSIDE RECORDS SUMMARY | 2024-08-03 13:55 | XMS_ITS | Encounter Summary ---
Author Organization [facility] Address [address] [place] [address] Care Team Providers Care Blow Molding Machine Operator Name Role Phone Unavailable Primary Care Provider Unavailabl e Encounter Details Date Type Department Care Team (Late st Contact Info) Description 08/19/2007 9:10 EST Hospital Encounter [facility] [address] [place] [address] [facility] [address] [place] [phone] Social History Tobacco Use Types Packs/Day Years [...] EDT Office Visit [facility] Endocrinology - [facility] [address] [place] [address] Wilder Zaidi, DO [address] [facility] [address] [place] [address] documented as of this encounter Visit Diagnoses Not on filedocumented in this encounter
--- OUTSIDE RECORDS SUMMARY | 2024-08-03 13:55 | XMS_ITS | Encounter Summary ---
Author Organization [facility] Address [address] [place] [address] Care Team Providers Care Field Crop Harvest Contractor Name Role Phone Corin Skinner MD Primary Care Provider [phone] Encounter Details Date Type Department Care Team (Late st Contact Info) Description 02/06/2006 Before PRISM Converted Visit (Maple) [facility] - Maple conversion [address] [place] [address] Skyler Edwards [facility] [address] [place] [phone] Social History Tobacco Use Types Packs/Day Years [...] 02/06/2006 February 06, 2006 Kris Drew MD [address] [place] [address] 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 Members of his nursing team, his professional healthcare representative, and his father accompanied him to [...] take Miguel Angel homewith him to the [place] area. Father lives with his new and several other children. He is in the process of preparing his home for Miguel Angel's return which will likely occur in the next month. Miguel Angel currently remains at the [facility]. Based on review of notes provided by [...] testing when he moves back to the [place] area. His caregivers had questions regarding the [...] Skyler Edwards MD 02/23/2006 22:[address] [facility] [id number] James Zimakas, MD Skyler Edwards MD Division of Pediatric Endocrinology [phone] - Skyler Edwards MD A - O2 Job ID: [id number] Document ID: [id number] cc: MD Kris Mccauley MD *Solitario Ramos MD, [facility], [address] [place] [address]* documented in this encounter Plan of Treatment Upcoming Encounters Date Type Department Care Team (Late st Contact Info) Description 10/01/2024 13:40 EDT Office Visit [facility] Endocrinology - [facility] [address] [place], [place] [phone] Wilder Zaidi, 62 [facility] [address] [place] [phone] documented as of this encounter Visit Diagnoses Not on filedocumented in this encounter Care Teams Field Crop Harvest Contractor Relationship Specialty Start Date End Date Corin Skinner MD [address] [place] [phone] PCP - General 10/24/08 08/21/09 documented as of this encounter
--- OUTSIDE RECORDS SUMMARY | 2024-08-03 13:55 | XMS_ITS | Encounter Summary ---
Author Organization [facility] Address [address] [place] [address] Care Team Providers Care Supervisor Shellfish Farming Name Role Phone Yan Demarco MD Primary Care Provider [phone] Corin Skinner MD Primary Care Provider [phone] Encounter Details Date Type Department Care Team (Late st Contact Info) Description 11/27/2007 Office Visit [facility] - Maple conversion [address] [place] [address] Neo Benitez MD [address] [place] [phone] Social History Tobacco Use Types Packs/Day [...] Addenda for MIGUEL ANGEL BURGOS JR VisitID: [id number] Date: 11/27/2007 11/27/2007 15:41 MARGUERITE ONTIVEROS FROM [...] at 0800 and 1600, colace 1-200mg bid, [id number] mg every 8 hours, niacin 75mg tid, temazepan 30 mg at 1600 daily - last doses given not available on transfer paperwork). --[id number] Dinorah Boyd R.N.. History Chief Complaint: (altered mental status). This started today. Roberson-Carter pain scale: 2/10. Treatment LIDAR TECHNICIAN: (see transfer paperwork). SOCIAL HX: Nonsmoker. No alcohol use. 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 pt. has around the clock care. Arrived by EMS. Historian: EMS (transportation broker). --1809 Dinorah Boyd R.N.. PHYSICAL ASSESSMENT Alert. [...] RR: 10. O2 saturation: 99% room air. metal die finisher, pulse oximeter and NIBPmonitor placed on patient; monitor alarms on. (pt. parents report pt. with brief episode ofhe was gone states pt. eyes rolled back in his head and it was like he wasn't there deny any kind of motor movement or eye movement - this not witnessed by this remote mortgage underwriter; pt. is upon assessment at what parents [...] [facility] (phlebotomy). --0013 Dinorah Boyd [...] Office Visit [facility] Endocrinology - [facility] [address] [place] [address] Wilder Zaidi, 62 [facility] [address] [place] [address] documented as of this encounter Visit Diagnoses Not on filedocumented in this encounter Care Teams Supervisor Shellfish Farming Relationship Specialty Start Date End Date Yan Demarco MD [address] [place] [address] PCP - General 08/22/09 02/20/10 Corin Skinner MD [address] [place] [phone] PCP - General 10/24/08 08/21/09 documented as of this encounter
--- OUTSIDE RECORDS SUMMARY | 2024-08-03 13:55 | XMS_ITS | Encounter Summary ---
Author Organization [facility] Address [address] [place] [address] Care Team Providers Care Softball Player Name Role Phone Yan Demarco MD Primary Care Provider Corin Skinner MD Primary Care Provider [phone] Encounter Details Date Type Department Care Team (Late st Contact Info) Description 02/08/2008 Office Visit [facility] - Maple conversion [address] [place] [address] Yossi Murphy MD [address] [facility], [address] [place] [address] Social History Tobacco Use Types [...] At pt's family's request, PICU attending at [facility] notified. PICU attending agreed with plan [...] endocrine), peds resident, PICU attending physician at [facility]. Reviewed test results. Agreed upon treatment [...] qd, calcium, vitamin d, niacin 1000mg tid, [id number] hs, hydrocortisone 5mg -2tabs am, 1 tab [...] --[id number] Bryant Baker R.N.. NURSING PROGRESS NOTES (telephone directory distributor driver at bedside.). --2236 Bryant Baker R.N. [...] Manuel Bejarano R.N.. IV / I&O Flowsheet [id number] late entry -. IV Site #1. IV access: left hand. IV started in ED with 20g angiocath using aseptic technique; one attempt. Saline lock placed; (iv started and blood drawn by telephone directory distributor driver.). --0033 Bryant Baker R.N. IV Site #1. IV fluids started. IV bag #1; 300 mL bolus 3% NaClat 100 mL/hr. --022 Manuel Bejarano R.N.. DISPOSITION / DISCHARGE (Transported to on technical service engineer by this RN and turned over to care of M3 nursing staff.). --[id number] Manuel Bejarano R.N.. Clara Chung R.N., R.N. Locked/Released at 02/09/2008 7:29 by Manuel Bejarano R.N. documented in this encounter Plan of Treatment Upcoming Encounters Date Type Department Care Team (Late st Contact Info) Description 10/01/2024 13:40 EDT Office Visit [facility] Endocrinology - [facility] [address] [place] [address] Wilder Zaidi, 62 [facility] [address] [place] [address] documented as of this encounter Visit Diagnoses Not on filedocumented in this encounter Care Teams Softball Player Relationship Specialty Start Date End Date Yan Dmearco MD [address] [place] [address] PCP - General 08/22/09 02/20/10 Corin Skinner MD [address] [place] [phone] PCP - General 10/24/08 08/21/09 documented as of this encounter
--- OUTSIDE RECORDS SUMMARY | 2024-08-03 13:55 | XMS_ITS | Encounter Summary ---
Author Organization [facility] Address [address] [place] [address] Care Team Providers Care Hand Assembler For Puller Over Name Role Phone Corin Skinner MD Primary Care Provider [phone] Encounter Details Date Type Department Care Team (Late st Contact Info) Description 05/23/2006 Before PRISM Converted Visit (Maple) [facility] - Maple conversion [address] [place] [address] Marvin Perez MD [address] [place] [phone] Social History Tobacco Use Types Packs/Day [...] May 23, 2006 Kris Drew MD [address] [place] [address] Drew: Miguel Angel Burgos was [...] [place] half south of [place], [place] and this is quite a trip for him to make. He and his family would like to considereither going to [place] or [place] for followup but I would also be [...] Perez MD 06/02/2006 10:50 Anastasiya Perez MDAssociate ProfessorSt Johnsbury HospitalDivision of Neurological SurgeryMarvin Perez MD Marvin Perez MD Top Lift And Automatic Window Repairer [facility] Division of Neurological Surgery - Sunni Perez MD P - bb Job ID: [id number] Document ID: [id number] cc: Kris Drew MD documented in this encounter Plan of Treatment Upcoming Encounters Date Type Department Care Team (Late st Contact Info) Description 10/01/2024 13:40 EDT Office Visit [facility] Endocrinology - [facility] [address] [place] [address] Wilder Zaidi, DO [address] [facility] [address] [place] [phone] documented as of this encounter Visit Diagnoses Not on filedocumented in this encounter Care Teams Hand Assembler For Puller Over Relationship Specialty Start Date End Date Corin Skinner MD [address] [place] [phone] PCP - General 10/24/08 08/21/09 documented as of this encounter
--- OUTSIDE RECORDS SUMMARY | 2024-08-03 13:55 | XMS_ITS | Encounter Summary ---
Author Organization [facility] Address [address] [place] [address] Care Team Providers Care Aerologist Name Role Phone Unavailable Primary Care Provider Unavailabl e Encounter Details Date Type Department Care Team (Latest Contact Info) Description 05/15/2007 6:45 EST - 05/15/2007 11:59 EST Hospital Encounter [facility] Perioperative Services- [facility] [address] [place], [place] [address] Marvin Perez MD [address] [place] [phone] Discharge Disposition: Home or Self Care Social [...] Visit [facility] Endocrinology - [facility] [address] [place] [address] Wilder Zaidi, 62 [facility] [address] [place] [address] documented as [...]
--- OUTSIDE RECORDS SUMMARY | 2024-08-03 13:56 | XMS_ITS | Encounter Summary ---
Author Organization [facility] Address [address] [place] [address] Care Team Providers Care Bowling Alley Floors Installer Name Role Phone Unavailable Primary Care Provider Unavailabl e Encounter Details Date Type Department Care Team (Late st Contact Info) Description 01/01/2005 4:51 EDT - 01/15/2005 11:59 EDT Hospital Encounter [facility] Pediatric Unit [address] [place] [address] Jodi Parr MD 111 [facility], [address] [phone] Slava Pineda MD Discharge Disposition: Cancer Center[facility] Social History Tobacco Use Types Packs/Day [...] left-sided weakness. [facility], [facility]. He had been sent to the [facility] because of increased irritability and agitation, [...] date. DISPOSITION: The patient was discharged to [facility] facility. CONDITION AT DISCHARGE: Fair. DISCHARGE INSTRUCTIONS: Per patient family and [facility] facility: Discharge medications: Omeprazole 40 mg PO [...] levels daily and call Dr. Edwards at [facility] if there were any questions regarding his sodium. Free fluid targets would be based on daily sodium levels. The patient has already been followed by Dr. Edwards and he is involvedin his care. [facility] that they can call Dr. Edwards when they have any questions regarding endocrine issues for Miguel Angel. Signed by Jodi Parr MD 02/20/2005 07:31 Isabel Tilley, Aleksandra Tilley, [facility] Parr MD= - Isabel Tilley MD P - Job ID: [id number] Document ID: [id number] cc: MD Thad Jones MD Thomas Moseley, [...] [facility] End[facility] - [address] [address] Wilder Zaidi, DO [address] [place] [address] [address] [place] [address] documented as of this [...] since previous examinations. D: ??01/10/05 T: ??01/15/05 /[facility] Procedure Note Jose Armando Barker MD [...] No other new findings since previous examinations. /[facility] us Wes Borja MD [facility] MRI ORDERABLES Final [...]
--- OUTSIDE RECORDS SUMMARY | 2024-08-03 13:56 | XMS_ITS | Encounter Summary ---
Author Organization [facility] Address [address] [place] [address] Care Team Providers Care Cna Per Diem Name Role Phone Yan Demarco MD Primary Care Provider Corin Skinner MD Primary Care Provider [phone] Encounter Details Date Type Department Care Team (Late st Contact Info) Description 12/31/2004 Office Visit [facility] - Maple conversion [address] [place] [address] Yan Guadarrama MD 111 [facility], Level [address] [place] [address] Social History Tobacco Use Types [...] 23:08) Addenda for MIGUEL ANGEL MASON VisitID: [id number] Date: 12/31/2004 12/31/2004 22:44 transferred from rehab [...] Unable to quantify level of pain. Treatment CONVEYOR INSTALLER: (Pain meds at rehab). PAST HX: [...] --0106 Raleigh Lazo R.N. [facility] [place] [facility] --0322 Milady Taveras R.N. Patient transported to [place] by stretcher with nurse and tech. --0348 [...] DISPOSITION / DISCHARGE Transported via stretcher by [facility]. Report was given (to Deb Garcia). --12 Tenisha Heredia, Nurse Associate. Clara Guzman R.N., R.N., Nurse Associate. Locked/Released at 01/02/2005 9:37 by Rachel Reynolds R.N. documented in this encounter Plan of Treatment Upcoming Encounters Date Type Department Care Team (Late st Contact Info) Description 10/01/2024 13:40 EDT Office Visit [facility] Endocrinology - [facility] [address] [place] [address] Wilder Zaidi, 62 [facility] [address] [place] [address] documented as of this encounter Visit Diagnoses Not on filedocumented in this encounter Care Teams Cna Per Diem Relationship Specialty Start Date End Date Yan Demarco MD [address] [place] [address] PCP - General 08/22/09 02/20/10 Corin Skinner MD [address] [place] [phone] PCP - General 10/24/08 08/21/09 documented as of this encounter
--- OUTSIDE RECORDS SUMMARY | 2024-08-03 13:56 | XMS_ITS | Encounter Summary ---
Author Organization [facility] Address [address] [place] [address] Care Team Providers Care Director Of Regulatory Affairs Name Role Phone Yan Demarco MD Primary Care Provider Corin Skinner MD Primary Care Provider Akil Serrano MD Primary Care Provider [phone] Encounter Details Date Type Department Care Team (Late st Contact Info) Description 12/05/2004 Before PRISM Converted Visit (Maple) [facility] - Maple conversion [address] [place] [address] Allison Alarcon MD [address] [place] [phone] Social History Tobacco Use Types Packs/Day Years [...] - ALLISON ALARCON MD /re Voice ID: [id number] Doc ID: [id number] [facility] - ALLISON ALARCON MD /re Voice ID: [id number] Doc ID: [id number] documented in this encounter Plan of Treatment Upcoming Encounters Date Type Department Care Team (Late st Contact Info) Description 10/01/2024 13:40 EDT Office Visit [facility] Endocrinology - [facility] [address] [place], [place] [phone] Wilder Zaidi, 62 [facility] [address] [place] [address] documented as of this encounter Visit Diagnoses Not on filedocumented in this encounter Care Teams Director Of Regulatory Affairs Relationship Specialty Start Date End Date Yan Demarco MD [address] [place] [address] PCP - General 08/22/09 02/20/10 Corin Skinner MD [address] [place] [phone] PCP - General 10/24/08 08/21/09 Akil Serrano MD [facility] [address] [place], [place] [address] PCP - General 02/21/10 04/16/11 documented as of this encounter
--- OUTSIDE RECORDS SUMMARY | 2024-08-03 13:56 | XMS_ITS | Encounter Summary ---
Author Organization [facility] Address [address] [place] [address] Care Team Providers Care Sheet Metal Worker Name Role Phone Yan Demarco MD Primary Care Provider [phone] Corin Skinner MD Primary Care Provider [phone] Akil Serrano MD Primary Care Provider [phone] Yossi Torres MD Primary Care Provider [phone] Emilee Cody MD Primary Care Provider + Ren Vaz MD Primary Care Provider [phone] Encounter Details Date Type Department Care Team (Late st Contact Info) Description 01/01/2005 Before PRISM Converted Visit (Maple) [facility] Rehabilitation Therapy - [address] [address] Allison Alarcon MD [address] [place] [phone] Social History Tobacco Use Types Packs/Day Years [...] Visit [facility] Endocrinology - [address] [place] [address] Dejuan Wilder Valencia, DO [address] [place] [address] documented as of this encounter [...] filedocumented in this encounter Care Teams Sheet Metal Worker Relationship Specialty Start Date End Date Yan Demarco MD [address] [place] [address] PCP - General 08/22/09 02/20/10 Corin Skinner MD [address] [place] [phone] PCP - General 10/24/08 08/21/09 Akil Serrano MD [address] [facility] [address] [place] [address] PCP - General 02/21/10 04/16/11 Yossi Torres MD [address] [place] [phone] PCP - General 04/17/11 03/14/16 Emilee Cody MD [address] [place] [address] PCP - General 03/15/16 09/29/18 Ren Vaz MD [address] [place] [address] [place] [address] PCP - General 09/30/18 documented as of this encounter
--- OUTSIDE RECORDS SUMMARY | 2024-08-03 13:56 | XMS_ITS | Encounter Summary ---
Author Organization [facility] Address [address] [place] [address] Care Team Providers Care Slasher Hand Name Role Phone Unavailable Primary Care Provider Unavailabl e Encounter Details Date Type Department Care Team (Latest Contact Info) Description 01/15/2005 12:20 EDT - 03/28/2005 11:59 EDT Hospital Encounter [facility] Rehabilitation Therapy Unit Level 2 [address] [place] [address] Allison Alarcon MD [address] [place] [phone] Discharge Disposition: Nursing Facility (Skilled) Social History [...] admitted to the inpatient rehabilitation service at [facility] on November 20, 2004. From a rehabilitation [...] She will continue to reside in the [place] area and she presently requires hemodialysis three times a week. She will make attempts to travel and visit her son in the facility when able. DISCHARGE PLAN: 1. Transfer to [facility] for continuation of subacute level rehab services. 2. 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 The following recommendations are being given by the pediatric endocrinology service. Further questions can be referredto the endocrinology service at [facility] by calling and asking to be connected to the endocrinology service buttonhole marker and if available, Dr. Davin Edwards, the pediatric waste machine tender. a. For management of his central diabetes [...] dictation. 5. If patient returns to the [facility] at some point, patients previous primary [...] Alarcon MD A - mt Job ID: [id number] Document ID: [id number] cc: MD Kris Mccauley MD Christa M Zehle, MD Paul James Zimakas, MD *Floresita Ramos MD, [facility], [address], [place] [address] documented in this encounter Discharge Disposition Disposition [...] [facility] the physician that will be his primary physician there yesterday. PLAN: 1. Discharge from our services. 2. Transfer to [facility]. 3. Dictation of discharge summary. (Discharge work, greater than 30 minutes.) Signed by Allison Alarcon MD 03/29/2005 08:45 Sky Hollingsworth MD Allison Alarcon MD - Allison Alarcon MD P - lr Job ID: [id number] Document ID: [id number] cc: * Raleigh Castañeda MD - 03/28/2005 [...] Castañeda MD A - mt Job ID: [id number] Document ID: [id number] cc: * Allison Alarcon MD - 03/27/2005 [...] [facility] [place] multiple issues and needs. PLAN: 1. Recheck [...] Alarcon MD A - mt Job ID: [id number] Document ID: [id number] cc: * Raleigh Castañeda MD - 03/27/2005 [...] Castañeda MD A - chelle Job ID: [id number] Document ID: [id number] cc: * Allison Alarcon MD - 03/26/2005 [...] confirms the patient will be transferred to [facility] on . ASSESSMENT: patient status post CVA with craniopharyngioma. The patient still has difficulty calming himself and communicating needs appropriately when he gets more anxious or frustrated. Final details of MRI planned for tomorrow confirmed with the floor patient care secretary. Also discussed with ENT for them to evaluate him for foreign bodies in his right ear canal. [facility] Sodium levels are showing good control. [...] Alarcon MD A - re Job ID: [id number] Document ID: [id number] cc: * Raleigh Castañeda MD - 03/26/2005 [...] Castañeda MD A - ss Job ID: [id number] Document ID: [id number] cc: * Allison Alarcon MD - 03/25/2005 [...] Alarcon MD A - mt Job ID: [id number] Document ID: [id number] cc: * Raleigh Castañeda MD - 03/25/2005 [...] Castañeda MD P - lr Job ID: [id number] Document ID: [id number] cc: * Allison Alarcon MD - 03/24/2005 [...] Alarcon MD A - mt Job ID: [id number] Document ID: [id number] cc: * Allison Alarcon MD - 03/23/2005 [...] Alarcon MD A - re Job ID: [id number] Document ID: [id number] cc: * Raleigh Castañeda MD - 03/22/2005 [...] Castañeda MD P - lr Job ID: [id number] Document ID: [id number] cc: * Wicho Carlton MD - 03/22/2005 [...] Carlton MD P - lr Job ID: [id number] Document ID: [id number] cc: * Allison Alarcon MD - 03/21/2005 0000 EDT INPATIENT PROGRESS NOTE PT LOC: F002 Service Date: 03/21/2005 DIAGNOSIS: Bilateral cerebrovascular accidents/panhypopituitarism. SUBJECTIVE: Miguel Angel responsive and awake this morning. Denying any pain. Participating in therapies. OBJECTIVE: Vital signs are stable. Affect pleasant. Left hemiparesis continues. Verbal output remains with dysarthria. ASSESSMENT: CVA with panhypopituitarism. Anticipated discharge today to [facility] has been delayed to administrative and approval issues from the Medicaid system per our elementary school social worker. Mom has been informed. In that the [...] coordinate this were covered at length with electrical/instrument technician today. Reviewed with mom availability. PLAN: [...] will be able to be transferred to [facility] on that day. (Fifty minutes total time, greater than 50% direct patient and family discussion of issues as aboveand care coordination with team.) Signed by Allison Alarcon MD 03/23/2005 16:47 Sky Hollingsworth MD Allison Alarcon MD - Allison Alarcon MD A - mt Job ID: [id number] Document ID: [id number] cc: * Raleigh Castañeda MD - 03/21/2005 [...] Castañeda MD P - lr Job ID: [id number] Document ID: [id number] cc: * Allison Alarcon MD - 03/20/2005 [...] been approved and cleared for transfer to [facility] tomorrow. Mom is aware that this [...] Alarcon MD A - mt Job ID: [id number] Document ID: [id number] cc: * Raleigh Castañeda MD - 03/20/2005 [...] Raleigh Castañeda MD 04/01/2005 13:54 Dena Castañ[facility], [facility] Raleigh Castañeda MD - Raleigh Castañeda MD A - re Job ID: [id number] Document ID: [id number] cc: * Allison Alarcon MD - 03/19/2005 [...] work reports patient has been accepted at [facility]. This final plan is to be reviewed with mom. Miguel Angel has not yet been informed. Staff are videotaping sessions to help give the next staff a baseline of where his sessions have been at and what to continue to work with. [facility] has also asked for a PPD [...] with the patientprimary care physician from the [facility], Dr. Drew, who was here to see him. Reviewed the medical issues on him at present and focus of care. Dr. Drew indicates he feels he has made excellent progress. At present, there still is not enough staff or support in the [facility] to return him to a home environment. PLAN: 1. PPD to be placed today. 2. Social work working on contacting the mom, who is out of the hospital today, to start establishing a firm plan for when patient will be transferred to [facility] potentially or next Friday. 3. Continue all present medications. 4. Reinforce patient needs to have between 2 to 2.5 liters in fluids per day. Forty minutes total time, greater then 50% care coordination with team. Signed by Allison Alarcon MD 03/20/2005 08:43 Sky Hollingsworth MD Allison Alarcon MD - Allison Alarcon MD A - mt Job ID: [id number] Document ID: [id number] cc: * Raleigh Castañeda MD - 03/19/2005 [...] Raleigh Castañeda MD 03/27/2005 17:21 Dena Castañeda, [facility] MD Raleigh Castañeda MD - Raleigh Castañeda MD A - mt Job ID: [id number] Document ID: [id number] cc: * Allison Alarcon MD - 03/18/2005 [...] Alarcon MD A - mt Job ID: [id number] Document ID: [id number] cc: * Raleigh Castañeda MD - 03/18/2005 [...] Castañeda MD A - re Job ID: [id number] Document ID: [id number] cc: * Raleigh Castañeda MD - 03/17/2005 [...] Castañeda MD A - ss Job ID: [id number] Document ID: [id number] cc: * Raleigh Castañeda MD - 03/16/2005 [...] Raleigh Castañeda MD 03/26/2005 10:01 Dena Castañeda, [facility] Raleigh Castañeda MD - Raleigh Castañeda MD P - lr Job ID: [id number] Document ID: [id number] cc: * Wicho Carlton MD - 03/15/2005 [...] Carlton MD P - re Job ID: [id number] Document ID: [id number] cc: * Raleigh Castañeda MD - 03/15/2005 [...] Castañeda MD A - lr Job ID: [id number] Document ID: [id number] cc: * Allison Alarcon MD - 03/14/2005 [...] Alarcon MD A - mt Job ID: [id number] Document ID: [id number] cc: * Raleigh Castañeda MD - 03/14/2005 [...] Castañeda MD P - mh Job ID: [id number] Document ID: [id number] cc: * Allison Alarcon MD - 03/13/2005 [...] Alarcon MD A - re Job ID: [id number] Document ID: [id number] cc: * Raleigh Castañeda MD - 03/13/2005 [...] Castañeda MD P - mh Job ID: [id number] Document ID: [id number] cc: * Allison Alarcon MD - 03/12/2005 [...] Alarcon MD A - mt Job ID: [id number] Document ID: [id number] cc: * Raleigh Castañeda MD - 03/12/2005 [...] Castañeda MD P - mt Job ID: [id number] Document ID: [id number] cc: * Kris Thomas MD - 03/11/2005 [...] Kris Thomas MD P - Job ID: [id number] Document ID: [id number] cc: * Kris Thomas MD - 03/10/2005 [...] Kris Thomas MD P - Job ID: [id number] Document ID: [id number] cc: * Kris Thomas MD - 03/09/2005 [...] Thomas MD P - mh Job ID: [id number] Document ID: [id number] cc: * Wicho Carlton MD - 03/08/2005 [...] Carlton MD P - re Job ID: [id number] Document ID: [id number] cc: * Raleigh Castañeda MD - 03/08/2005 [...] Raleigh Castañeda MD P - Job ID: [id number] Document ID: [id number] cc: * Raleigh Castañeda MD - 03/07/2005 [...] Castañeda MD A - re Job ID: [id number] Document ID: [id number] cc: * Wicho Carlton MD - 03/07/2005 [...] Carlton MD P - ss Job ID: [id number] Document ID: [id number] cc: * Raleigh Castañeda MD - 03/06/2005 [...] MD - Raleigh Castañeda MD P - arresting gear operator Job ID: [id number] Document ID: [id number] cc: * Wicho Carlton MD - 03/06/2005 [...] Carlton MD A - mt Job ID: [id number] Document ID: [id number] cc: * Wicho Carlton MD - 03/05/2005 [...] disposition options, as well, as discussed with high school social studies tutor. Apparently,his compliance examiner is uncertain whether he can meet [...] Carlton MD P - ss Job ID: [id number] Document ID: [id number] cc: * Raleigh Castañeda MD - 03/05/2005 [...] Castañeda MD A - re Job ID: [id number] Document ID: [id number] cc: * Raleigh Castañeda MD - 03/04/2005 [...] Castañeda MD A - ss Job ID: [id number] Document ID: [id number] cc: * Wicho Carlton MD - 03/04/2005 0000 EDT INPATIENT PROGRESS NOTE PT LOC: F002 Service Date: 03/04/2005 Miguel Angel appears to be more agitated over the last several days with uncertain etiology. Vital signs are stable, afebrile. Heart regular, lungs clear. Abdomen: G-tube is intact. Calves soft and nontender. Neurologic without change. IMPRESSION: 1. Craniopharyngioma resection: Continue present therapy program. patient services technician is actively involved. I am of the understanding that outside agencies are going to be looking at him this week. 2. Hyponatremia: Continue to monitor intermittently. Signed by Wicho Carlton MD 03/05/2005 15:58 Nadine Garcia MD Wicho Carlton MD - Wicho Carlton MD P - ss Job ID: [id number] Document ID: [id number] cc: * Drew Larson MD - 03/03/2005 [...] Larson MD A - re Job ID: [id number] Document ID: [id number] cc: * Raleigh Castañeda MD - 03/02/2005 [...] Castañeda MD A - chelle Job ID: [id number] Document ID: [id number] cc: * Raleigh Castañeda MD - 03/01/2005 [...] MD - Raleigh Castañeda MD A - arresting gear operator Job ID: [id number] Document ID: [id number] cc: * Wicho Carlton MD - 02/28/2005 [...] elevated but stable. [facility]. Signed by Wicho Carlton MD 02/28/2005 14:08 Nadine Garcia MD Wicho Carlton MD - Wicho Carlton MD P - ss Job ID: [id number] Document ID: [id number] cc: * Raleigh Castañeda MD - 02/28/2005 [...] Castañeda MD A - mt Job ID: [id number] Document ID: [id number] cc: * Wicho Carlton MD - 02/27/2005 [...] Carlton MD A - ss Job ID: [id number] Document ID: [id number] cc: * Raleigh Castañeda MD - 02/27/2005 [...] Castañeda MD A - re Job ID: [id number] Document ID: [id number] cc: * Wicho Carlton MD - 02/26/2005 [...] Carlton MD A - ss Job ID: [id number] Document ID: [id number] cc: * Raleigh Castañeda MD - 02/26/2005 [...] Castañeda MD A - re Job ID: [id number] Document ID: [id number] cc: * Wicho Carlton MD - 02/25/2005 [...] Carlton MD P - ss Job ID: [id number] Document ID: [id number] cc: * Raleigh Castañeda MD - 02/25/2005 0000 EDT INPATIENT PROGRESS NOTE PT LOC: F002 Service Date: 02/25/2005 Mr. Burgos is a 89-fow[age]-wfdjwsgwstkse from resection of craniopharyngioma with resultant stroke [...] Castañeda MD P - ss Job ID: [id number] Document ID: [id number] cc: * Allison Alarcon MD - 02/24/2005 [...] to try and help with some of [place] behaviors. PLAN: 1. Change Ritalin to 15 mg q.a.m. and 5 mg q.p.m. 2. Start risperidone 1 mg p.o. q.p.m. 3. Labs as ordered for tomorrow. Allow Robaxin as a p.r.n. for discomfort at night. Signed by Allison Alarcon MD 02/26/2005 23:34 Sky Hollingsworth MD Allison Alarcon MD - Allison Alarcon MD A - re Job ID: [id number] Document ID: [id number] cc: * Allison Alarcon MD - 02/23/2005 [...] Alarcon MD P - lr Job ID: [id number] Document ID: [id number] cc: * Wicho Carlton MD - 02/22/2005 [...] Carlton MD P - ss Job ID: [id number] Document ID: [id number] cc: * Raleigh Castañeda MD - 02/22/2005 [...] Castañeda MD A - mt Job ID: [id number] Document ID: [id number] cc: * Allison Alarcon MD - 02/21/2005 [...] primary care physician, Dr. Drew, in the [place] area and reviewed with him the concerns regarding Robinpotential return to the [facility]. Details of agency management still being [...] patient contact and care coordination with team [facility] providers). Signed by Allison Alarcon MD 02/23/2005 17:08 ACarol Sunni Alarcon MDCarol Sunni Alarcon MD Allison Alarcon MD - Allison Alarcon MD A - re Job ID: [id number] Document ID: [id number] cc: * Raleigh Castañeda MD - 02/21/2005 [...] Castañeda MD A - ss Job ID: [id number] Document ID: [id number] cc: * Allison Alarcon MD - 02/20/2005 [...] need back from his team in the [facility] area in terms of their ability to [...] Alarcon MD A - ss Job ID: [id number] Document ID: [id number] cc: * Raleigh Castañeda MD - 02/20/2005 [...] Castañeda MD A - re Job ID: [id number] Document ID: [id number] cc: * Raleigh Castañeda MD - 02/19/2005 [...] Castañeda MD A - mt Job ID: [id number] Document ID: [id number] cc: * Allison Alarcon MD - 02/19/2005 [...] consultation if needed. Met also with [employer] social worker out of his primary careoffice, who continues to follow. There was a case management meeting called last week in his local area. Primary care physician still concerned that there are not sufficient services that are going to be available in the local area from a home therapy standpoint, as well as needing to have a clear understanding of [place] behaviors and a good behavioral back-up plan. [...] Alarcon MD A - re Job ID: [id number] Document ID: [id number] cc: * Allison Alarcon MD - 02/18/2005 [...] Alarcon MD P - ss Job ID: [id number] Document ID: [id number] cc: * Raleigh Castañeda MD - 02/18/2005 [...] Castañeda MD A - ss Job ID: [id number] Document ID: [id number] cc: * Drew Larson MD - 02/17/2005 [...] will repeat labs tomorrow. Primary service will draft roller picker anychanges in his LFTs andrefer to appropriate specialists as necessary. Dr. Castañeda will continue to follow closely. Electrolytes generally are under adequate control today. Follow-up electrolytes for tomorrow. Signed by Drew Larson MD 02/18/2005 11:45 Leroy Boateng MD Drew Larson MD - Drew Larson MD P - re Job ID: [id number] Document ID: [id number] cc: * Drew Larson MD - 02/16/2005 [...] Larson MD P - re Job ID: [id number] Document ID: [id number] cc: * Raleigh Castañeda MD - 02/15/2005 [...] Castañeda MD A - ss Job ID: [id number] Document ID: [id number] cc: * Raleigh Castañeda MD - 02/14/2005 [...] Castañeda MD P - mt Job ID: [id number] Document ID: [id number] cc: * Allison Alarcon MD - 02/14/2005 [...] Alarcon MD A - mt Job ID: [id number] Document ID: [id number] cc: * Allison Alarcon MD - 02/13/2005 [...] Alarcon MD A - MO Job ID: [id number] Document ID: [id number] cc: * Raleigh Castañeda MD - 02/13/2005 [...] Castañeda MD P - mh Job ID: [id number] Document ID: [id number] cc: * Allison Alarcon MD - 02/12/2005 [...] Alarcon MD A - mt Job ID: [id number] Document ID: [id number] cc: * Raleigh Castañeda MD - 02/12/2005 [...] Castañeda MD P - mh Job ID: [id number] Document ID: [id number] cc: * Raleigh Castañeda MD - 02/11/2005 [...] Castañeda MD P - mh Job ID: [id number] Document ID: [id number] cc: * Allison Alarcon MD - 02/11/2005 [...] and have education provided by a pediatric waste machine tender. Sodium continues to fluctuate be within an [...] Alarcon MD A - mo Job ID: [id number] Document ID: [id number] cc: * Allison Alarcon MD - 02/10/2005 [...] Alarcon MD A - mo Job ID: [id number] Document ID: [id number] cc: * Jai Barrera MD - 02/09/2005 [...] MD - Jai Barrera MD A - sc Job ID: [id number] Document ID: [id number] cc: * Raleigh Castañeda MD - 02/08/2005 [...] Castañeda MD A - mt Job ID: [id number] Document ID: [id number] cc: * Wicho Carlton MD - 02/08/2005 [...] Carlton MD A - mt Job ID: [id number] Document ID: [id number] cc: * Allison Aalrcon MD - 02/07/2005 0000 EDT INPATIENT PROGRESS [...] Conference: Met with social work and nurse spring encaser from his local area and his mom [...] Alarcon MD A - mt Job ID: [id number] Document ID: [id number] cc: * Raleigh Castañeda MD - 02/07/2005 [...] Castañeda MD P - lr Job ID: [id number] Document ID: [id number] cc: * Allison Alarcon MD - 02/06/2005 [...] Alarcon MD A - re Job ID: [id number] Document ID: [id number] cc: * Raleigh Castañeda MD - 02/06/2005 [...] Castañeda MD A - re Job ID: [id number] Document ID: [id number] cc: * Allison Alarcon MD - 02/05/2005 [...] Alarcon MD A - re Job ID: [id number] Document ID: [id number] cc: * Raleigh Castañeda MD - 02/05/2005 [...] Castañeda MD P - lr Job ID: [id number] Document ID: [id number] cc: * Wicho Carlton MD - 02/04/2005 [...] Carlton MD P - mo Job ID: [id number] Document ID: [id number] cc: * Raleigh Castañeda MD - 02/04/2005 [...] Castañeda MD A - mt Job ID: [id number] Document ID: [id number] cc: * Raleigh Castañeda MD - 02/03/2005 [...] Raleigh Castañeda MD A - Job ID: [id number] Document ID: [id number] cc: * Drew Larson MD - 02/02/2005 [...] Larson MD P - lr Job ID: [id number] Document ID: [id number] cc: * Wicho Carlton MD - 02/01/2005 [...] Carlton MD P - ss Job ID: [id number] Document ID: [id number] cc: * Raleigh Castañeda MD - 02/01/2005 [...] Castañeda MD P - mh Job ID: [id number] Document ID: [id number] cc: * Raleigh Castañeda MD - 01/31/2005 [...] Castañeda MD P - lr Job ID: [id number] Document ID: [id number] cc: * Wicho Carlton MD - 01/30/2005 0000 EDT INPATIENT PROGRESS NOTE PT LOC: F002 Service Date: 01/30/2005 The patient is relatively calm this morning. He was evaluated by high school social studies tutor yesterday at the [facility] for evaluation of next appropriate setting. [...] and Zoloft. DISPOSITION: [facility] with Lashon Lawton the [facility] to help assess placement issues. Case discussed with high school social studies tutor this morning. Signed by Wicho Carlton MD 01/31/2005 08:05 Nadine Garcia MD Wicho Carlton MD - Wicho Carlton MD A - re Job ID: [id number] Document ID: [id number] cc: * Raleigh Castañeda MD - 01/30/2005 [...] Castañeda MD P - re Job ID: [id number] Document ID: [id number] cc: * Wicho Carlton MD - 01/29/2005 [...] Carlton MD P - mo Job ID: [id number] Document ID: [id number] cc: * Raleigh Castañeda MD - 01/29/2005 [...] Castañeda MD P - re Job ID: [id number] Document ID: [id number] cc: * Wicho Carlton MD - 01/28/2005 [...] Carlton MD P - chelle Job ID: [id number] Document ID: [id number] cc: * Raleigh Castañeda MD - 01/28/2005 [...] Castañeda MD P - lr Job ID: [id number] Document ID: [id number] cc: * Wicho Carlton MD - 01/27/2005 [...] Carlton MD P - re Job ID: [id number] Document ID: [id number] cc: * Wicho Carlton MD - 01/26/2005 [...] Carlton MD P - lr Job ID: [id number] Document ID: [id number] cc: * Wicho Carlton MD - 01/25/2005 [...] Carlton MD P - ss Job ID: [id number] Document ID: [id number] cc: * Raleigh Castañeda MD - 01/25/2005 [...] Castañeda MD A - mt Job ID: [id number] Document ID: [id number] cc: * Allison Alarcon MD - 01/24/2005 [...] Alarcon MD A - MO Job ID: [id number] Document ID: [id number] cc: A - mo Job ID: [id number] Document ID: [id number] cc: * Raleigh Castañeda MD - 01/24/2005 [...] Castañeda MD P - re Job ID: [id number] Document ID: [id number] cc: * Allison Alarcon MD - 01/23/2005 [...] Alarcon MD A - ss Job ID: [id number] Document ID: [id number] cc: * Raleigh Castañeda MD - 01/23/2005 [...] Castañeda MD P - ss Job ID: [id number] Document ID: [id number] cc: * Allison Alarcon MD - 01/22/2005 [...] 5. Med psych to talk to prior spring encaser and discuss medication regimen options. 6. Allow Percocet and Benadryl. 7. Team to work on behavioral plan with MEd Psych. minutes total time, greater than 50% direct patient, family education and care coordination with team). Signed by Allison Alarcon MD 01/23/2005 09:29 ACaSky Dumont MD Allison Alarcon MD - Allison Alarcon MD A - RE Job ID: [id number] Document ID: [id number] cc: * Raleigh Castañeda MD - 01/22/2005 [...] Castañeda MD P - ss Job ID: [id number] Document ID: [id number] cc: * Allison Alarcon MD - 01/21/2005 [...] Alarcon MD A - ss Job ID: [id number] Document ID: [id number] cc: * Raleigh Castañeda MD - 01/21/2005 [...] Castañeda MD P - lr Job ID: [id number] Document ID: [id number] cc: * Drew Larson MD - 01/20/2005 [...] Larson MD A - chelle Job ID: [id number] Document ID: [id number] cc: * Raleigh Castañeda MD - 01/19/2005 0000 EDT INPATIENT PROGRESS NOTE PT LOC: F002 Service Date: 01/19/2005 Mr. uBrgos is a 14-year-old recovering from resection with [...] Castañeda MD P - re Job ID: [id number] Document ID: [id number] cc: * Wicho Carlton MD - 01/18/2005 [...] Carlton MD A - re Job ID: [id number] Document ID: [id number] cc: * Raleigh Castañeda MD - 01/18/2005 0000 EDT INPATIENT PROGRESS NOTE PT LOC: F002 Service Date: 01/18/2005 Mr. Burgos is a 42-vjgk-sptpucucohcdq from resection of a craniopharyngioma with secondary [...] Raleigh Castañeda MD 01/25/2005 11:39 Dena Castañeda, [facility] MD Raleigh Castañeda MD - Raleigh Castañeda MD A - ss Job ID: [id number] Document ID: [id number] cc: * Allison Alarcon MD - 01/17/2005 [...] Alarcon MD P - lr Job ID: [id number] Document ID: [id number] cc: * Allison Alarcon MD - 01/16/2005 [...] Alarcon MD A - re Job ID: [id number] Document ID: [id number] cc: documented in this encounter Plan of Treatment Upcoming Encounters Date Type Department Care Team (Late st Contact Info) Description 10/01/2024 13:40 EDT Office Visit [facility] Endocrinology - [facility] [address] [place] [address] Wilder Zaidi, [address] [place] [address] documented as of this encounter [...] Results * SODIUM (03/26/2005 6:50 EDT) Pathologist [facility] Sodium 140 136 - 145 mEq/L [facility] Comment:Performed at [facility], [place], [place] 03/26/2005 6:50 EDT 03/26/2005 7:12 EDT us Allison Alarcon MD CHEMISTRY & BLOOD GAS ORDERA BLES Final Result Performing Organization Address [facility] Co de Phone Number [facility] [address] [place] [address] * (ABNORMAL) LIPID PROFILE (INCLUDES CHOLESTEROL, TRIGLYCERIDES, HDL, LDL) (03/22/2005 6:35 EDT) Cholesterol 174 mg/dl [facility] Comment: Desirable:<200 Borderline:200-239 High Risk:>sf=693 Triglycerides 675(H) 34 - 165 mg/dl [facility] Comment:Performed at [facility], [place], [place] HDL 24 mg/dl [facility] Comment: Highly Desirable:>60 Desirable:35-60 High Risk:<35 FASTING LDL, Calculated Triglyceride greater than 400 mg/dl, LDL calculation invalid. Desirable:<130 Borderline:130- 159 High Risk:>kj=612 mg/dl [facility] Comment:FASTING Chol/HDL Ratio 7.3 FASTING [facility] Fasting? Yes [facility] 03/22/2005 6:35 EDT 03/22/2005 6:49 EDT us Allison Alarcon MD CHEMISTRY & BLOOD GAS ORDERA BLES Final Result Performing Organization Address [facility] Co de Phone Number [facility] [address] [place] [address] * (ABNORMAL) AST (03/22/2005 6:35 EDT) AST 86(H) 16 - 38 U/L [facility] Comment:Performed [place] [facility] 03/22/2005 6:35 EDT 03/22/2005 6:49 EDT us Allison Alarcon MD CHEMISTRY & BLOOD GAS ORDERA BLES Final Result Performing Organization Address [facility] Co de Phone Number [facility] [address] [place] [address] * (ABNORMAL) ALT (03/22/2005 6:35 EDT) ALT 335(H) 10 - 45 U/L [facility] Comment:Performed at [place], [place] 03/22/2005 6:35 EDT 03/22/2005 6:49 EDT us Allison Alarcon MD CHEMISTRY & BLOOD GAS ORDERA BLES Final Result Performing Organization Address [facility] Co de Phone Number [facility] [address] [place] [address] * ALKALINE PHOSPHATASE (03/22/2005 6:35 EDT) Total Alkaline Phosphatase 309 130 - 525 U/L [facility] Comment:Performed at [place], [place] 03/22/2005 6:35 EDT 03/22/2005 6:49 EDT us Allison Alarcon MD CHEMISTRY & BLOOD GAS ORDERA BLES Final Result Performing Organization Address [facility] Co de Phone Number [facility] [address] [place] [address] * (ABNORMAL) SODIUM (03/20/2005 6:45 EDT) Sodium 149(H) 136 - 145 mEq/L [facility] Comment:Performed at [place], [place] 03/20/2005 6:45 EDT 03/20/2005 6:47 EDT us Allison Alarcon MD CHEMISTRY & BLOOD GAS ORDERA BLES Final Result Performing Organization Address [facility] Co de Phone Number [facility] [address] [place] [address] * (ABNORMAL) SODIUM (03/18/2005 6:45 EDT) Sodium 148(H) 136 - 145 mEq/L [facility] Comment:Performed at [place], [place] 03/18/2005 6:45 EDT 03/18/2005 6:56 EDT us Allison Alarcon MD CHEMISTRY & BLOOD GAS ORDERA BLES Final Result Performing Organization Address [facility] de Phone Number [facility] [address] [place] [address] * GLUCOSE, GLUCOMETER (03/15/2005 5:32 EDT) Glucose, Fingerstick 89 70 - 110 mg/dl [facility] [place] [id number] Test Performed by Nursing Services [facility] 03/15/2005 5:32 EDT 03/15/2005 22:32 EDT us Allison Alarcon MD CHEMISTRY & BLOOD GAS ORDERA BLES Final Result Performing Organization Address [facility] de Phone Number [facility] [address] [place] [address] * SODIUM (03/14/2005 6:25 EDT) Sodium 145 136 - 145 mEq/L [facility] Comment:Performed at [facility] [place] 03/14/2005 6:25 EDT 03/14/2005 6:53 EDT us Allison Alarcon MD CHEMISTRY & BLOOD GAS ORDERA BLES Final Result Performing Organization Address [facility] de Phone Number [facility] [address] [place] [address] * (ABNORMAL) SODIUM (03/13/2005 6:00 EDT) Sodium 152(H) 136 - 145 mEq/L [facility] Comment:Performed at [facility] [place] 03/13/2005 6:00 EDT 03/13/2005 6:59 EDT us Allison Alarcon MD CHEMISTRY & BLOOD GAS ORDERA BLES Final Result Performing Organization Address [facility] de Phone Number [facility] [address] [place] [address] * (ABNORMAL) SODIUM (03/12/2005 17:04 EDT) Pathologist [facility] Sodium 151(H) 136 - 145 mEq/L [facility] Comment:Slight hemolysis 03/12/2005 17:0 4 EDT 03/12/2005 17:05 EDT Allison Alarcon MD CHEMISTRY & BLOOD GAS ORDERA BLES Final Result [facility] [address] [place] [address] * (ABNORMAL) TRIGLYCERIDE (03/06/2005 6:25 EDT) [facility] Triglycerides 342(H) 34 - 165 mg/dl [facility] Comment:Performed at [place], [place] 03/06/2005 6:25 EDT 03/06/2005 6:32 EDT us Allison Alarcon MD CHEMISTRY & BLOOD GAS ORDERA BLES Final Result Performing Organization Address [facility] Co de Phone Number [facility] [address] [place] [address] * T3, TOTAL (03/06/2005 6:25 EDT) Pathologist [facility] T3, Total 147 60 - 181 ng/dl [facility] 03/06/2005 6:25 EDT 03/06/2005 6:32 EDT us Allison Alarcon MD CHEMISTRY & BLOOD GAS ORDERA BLES Final Result Performing Organization Address [facility] Co de Phone Number [facility] [address] [place] [address] * GLUCOSE, SERUM (03/06/2005 6:25 EDT) Pathologist [facility] Glucose, Serum 90 70 - 110 mg/dl [facility] Comment:Performed at [place], [place] 03/06/2005 6:25 EDT 03/06/2005 6:32 EDT us Allison Alarcon MD CHEMISTRY & BLOOD GAS ORDERA BLES Final Result Performing Organization Address [facility] de Phone Number [facility] [address] [place] [address] * PREALBUMIN (03/06/2005 6:25 EDT) Prealbumin 35 mg/dl [facility] 03/06/2005 6:25 EDT 03/06/2005 6:32 EDT us Allison Alarcon MD CHEMISTRY & BLOOD GAS ORDERA BLES Final Result Performing Organization Address [facility] de Phone Number [facility] [address] [place] [address] * (ABNORMAL) ELECTROLYTES (03/06/2005 6:25 EDT) Sodium 147(H) 136 - 145 mEq/L [facility] Potassium 4.6 3.6 - 5.2 mEq/L [facility] Chloride 111(H) 96 - 110 mEq/L [facility] CO2 25 24 - 32 mEq/L [facility] Comment:Performed at [facility] [place], [place] 03/06/2005 6:25 EDT 03/06/2005 6:32 EDT Allison Alarcon MD CHEMISTRY & BLOOD GAS ORDERA BLES Final Result Performing Organization Address [facility] de Phone Number [facility] [address] [place] [address] * (ABNORMAL) HEMAGRAM (03/06/2005 6:25 EDT) WBC [...] 15.2 % [facility] Comment:Performed at [facility] [place] 03/06/2005 6:25 EDT 03/06/2005 6:32 EDT us Alliosn Alarcon MD HEMATOLOGY & PF4 ORDERABLES Final Result [facility] [address] [place] [address] * T4 FREE (03/06/2005 6:25 EDT) Free T4 1.0 0.8 - 1.8 ng/dl [facility] 03/06/2005 6:25 EDT 03/06/2005 6:32 EDT us Allison Alarcon MD CHEMISTRY & BLOOD GAS ORDERA BLES Final Result Performing Organization Address [facility] Co de Phone Number [facility] [address] [place] [address] * T3 FREE (03/06/2005 6:25 EDT) T3, Free 2.6 2.3 - 4.2 pg/mL [facility] 03/06/2005 6:25 EDT 03/06/2005 6:32 EDT us Allison Alarcon MD CHEMISTRY & BLOOD GAS ORDERA BLES Final Result Performing Organization Address [facility] Co de Phone Number [facility] [address] [place] [address] * CREATININE (03/06/2005 6:25 EDT) Creatinine 0.6 0.6 - 1.2 mg/dl [facility] Comment:Performed at [facility] [place], [place] 03/06/2005 6:25 EDT 03/06/2005 6:32 EDT Allison Alarcon MD HISTORICAL LAB FOR SQ LOAD F inal Result Performing Organization Address [facility] de Phone Number [facility] [address] [place] [address] * (ABNORMAL) BUN (03/06/2005 6:25 EDT) BUN 7(L) 8 - 21 mg/dl [facility] Comment:Performed at [place], [place] 03/06/2005 6:25 EDT 03/06/2005 6:32 EDT us Allison Alarcon MD CHEMISTRY & BLOOD GAS ORDERA BLES Final Result Performing Organization Address [facility] de Phone Number [facility] [address] [place] [address] * (ABNORMAL) AST (03/06/2005 6:25 EDT) AST 155(H) 16 - 38 U/L [facility] Comment:Performed at [place], [place] 03/06/2005 6:25 EDT 03/06/2005 6:32 EDT us Allison Alarcon MD CHEMISTRY & BLOOD GAS ORDERA BLES Final Result Performing Organization Address [facility] de Phone Number [facility] [address] [place] [address] * (ABNORMAL) ALT (03/06/2005 6:25 EDT) ALT 397(H) 10 - 45 U/L [facility] Comment:Performed at [place], [place] 03/06/2005 6:25 EDT 03/06/2005 6:32 EDT us Allison Alarcon MD CHEMISTRY & BLOOD GAS ORDERA BLES Final Result Performing Organization Address [facility] de Phone Number [facility] [address] [place] [address] * SODIUM (03/01/2005 6:55 EDT) Sodium 140 136 - 145 mEq/L [facility] Comment:Performed at [place], [place] 03/01/2005 6:55 EDT 03/01/2005 7:29 EDT us Allison Alarcon MD CHEMISTRY & BLOOD GAS ORDERA BLES Final Result Performing Organization Address [facility] de Phone Number [facility] [address] [place] [address] * (ABNORMAL) ELECTROLYTES (02/28/2005 6:30 EDT) Sodium 143 136 - 145 mEq/L [facility] Potassium 4.2 3.6 - 5.2 mEq/L [facility] Chloride 107 96 - 110 mEq/L [facility] CO2 23(L) 24 - 32 mEq/L [facility] Comment:Performed at [place], [place] 02/28/2005 6:30 EDT 02/28/2005 8:22 EDT us Allison Alarcon MD CHEMISTRY & BLOOD GAS ORDERA BLES Final Result Performing Organization Address [facility] de Phone Number [facility] [address] [place] [address] * CREATININE (02/28/2005 6:30 EDT) Creatinine 0.7 0.6 - 1.2 mg/dl [facility] Comment:Performed at [place], [place] 02/28/2005 6:30 EDT 02/28/2005 8:22 EDT Allison Alarcon MD HISTORICAL LAB FOR SQ LOAD F inal Result Performing Organization Address [facility] Co de Phone Number [facility] [address] [place] [address] * BUN (02/28/2005 6:30 EDT) Pathologist [facility] BUN 14 8 - 21 mg/dl [facility] Comment:Performed at [place], [place] 02/28/2005 6:30 EDT 02/28/2005 8:22 EDT Allison Alarcon MD CHEMISTRY & BLOOD GAS ORDERA BLES Final Result [facility] [address] [place] [address] * SODIUM (02/26/2005 8:52 EDT) [facility] Sodium 144 136 - 145 mEq/L [facility] Comment:Performed at [place], [place] 02/26/2005 8:52 EDT 02/26/2005 8:54 EDT us Allison Alarcon MD CHEMISTRY & BLOOD GAS ORDERA BLES Final Result [facility] [address] [place] [address] * HEPATITIS C ANTIBODY (02/26/2005 8:52 EDT) [facility] Hepatitis C Ab Neg [facility] 02/26/2005 8:52 EDT 02/26/2005 8:54 EDT us Allison Alarcon MD CHEMISTRY & BLOOD GAS ORDERA BLES Final Result [facility] [address] [place] [address] * HEPATITIS B SURFACE ANTIBODY (02/26/2005 8:52 EDT) Pathologist [facility] Hepatitis B Surface Ab Indeterminate - consider retesting or reimmunization. [facility] 02/26/2005 8:52 EDT 02/26/2005 8:54 EDT us Allison Alarcon MD CHEMISTRY & BLOOD GAS ORDERA BLES Final Result Performing Organization Address [facility]/ZIP Co de Phone Number [facility] [address] [place] [address] * HEPATITIS A TOTAL ANTIBODY (02/26/2005 8:52 EDT) Hep A Antibody Neg [facility] 02/26/2005 8:52 EDT 02/26/2005 8:54 EDT us Allison Alarcon MD CHEMISTRY & BLOOD GAS ORDERA BLES Final Result Performing Organization Address [facility]/ZIP Co de Phone Number [facility] [address] [place] [address] * BUN (02/26/2005 8:52 EDT) Pathologist [facility] BUN 14 8 - 21 mg/dl [facility] Comment:Performed at [place] 02/26/2005 8:52 EDT 02/26/2005 8:54 EDT us Allison Alarcon MD CHEMISTRY & BLOOD GAS ORDERA BLES Final Result Performing Organization Address [facility] de Phone Number [facility] [address] [place] [address] * (ABNORMAL) AST (02/26/2005 8:52 EDT) Pathologist [facility] AST 88(H) 16 - 38 U/L [facility] Comment:Performed at [facility] [place], [place] 02/26/2005 8:52 EDT 02/26/2005 8:54 EDT us Allison Alarcon MD CHEMISTRY & BLOOD GAS ORDERA BLES Final Result Performing Organization Address [facility] Co de Phone Number [facility] [address] [place] [address] * (ABNORMAL) ALT (02/26/2005 8:52 EDT) ALT 274(H) 10 - 45 U/L [facility] Comment:Performed at [place] 02/26/2005 8:52 EDT 02/26/2005 8:54 EDT Allison Alarcon MD CHEMISTRY & BLOOD GAS ORDERA BLES Final Result Performing Organization Address [facility] de Phone Number [facility] [address] [place] [address] * ALKALINE PHOSPHATASE (02/26/2005 8:52 EDT) Pathologist [facility] Total Alkaline Phosphatase 227 130 - 525 U/L [facility] Comment:Performed at [place], [place] 02/26/2005 8:52 EDT 02/26/2005 8:54 EDT Allison Alarcon MD CHEMISTRY & BLOOD GAS ORDERA BLES Final Result Performing Organization Address [facility] de Phone Number [facility] [address] [place] [address] * ALBUMIN (02/26/2005 8:52 EDT) Pathologist [facility] Albumin 4.6 3.0 - 5.5 g/dl [facility] Comment:Performed at [place], [place] 02/26/2005 8:52 EDT 02/26/2005 8:54 EDT Allison Alarcon MD CHEMISTRY & BLOOD GAS ORDERA BLES Final Result Performing Organization Address [facility] de Phone Number [facility] [address] [place] [address] * (ABNORMAL) SODIUM (02/24/2005 10:40 EDT) Pathologist [facility] Sodium 135(L) 136 - 145 mEq/L [facility] Comment:Performed at [place], [place] 02/24/2005 10:4 0 EDT 02/24/2005 10:58 EDT Allison Alarcon MD CHEMISTRY & BLOOD GAS ORDERA BLES Final Result Performing Organization Address [facility] de Phone Number [facility] [address] [place] [address] * SODIUM (02/22/2005 6:00 EDT) Sodium 144 136 - 145 mEq/L [facility] Comment:Performed at [facility] [place], [place] 02/22/2005 6:00 EDT 02/22/2005 6:53 EDT Allison Alarcon MD CHEMISTRY & BLOOD GAS ORDERA BLES Final Result Performing Organization Address [facility] de Phone Number [facility] [address] [place] [address] * (ABNORMAL) SODIUM (02/21/2005 10:22 EDT) Sodium 154(H) 136 - 145 mEq/L [facility] Comment: BY F.STrena Performed at [place], [place] 02/21/2005 10:2 2 EDT 02/21/2005 10:24 EDT us Allison Alarcon MD CHEMISTRY & BLOOD GAS ORDERA BLES Final Result Performing Organization Address [facility] de Phone Number [facility] [address] [place] [address] * (ABNORMAL) SODIUM (02/20/2005 6:00 EDT) Sodium 153(H) 136 - 145 mEq/L [facility] Comment: Sample retested, result confirmed Performed at [place], [place] 02/20/2005 6:00 EDT 02/20/2005 6:37 EDT Allison Alarcon MD CHEMISTRY & BLOOD GAS ORDERA BLES Final Result Performing Organization Address [facility] Co de Phone Number [facility] [address] [place] [address] * SODIUM (02/18/2005 8:06 EDT) Sodium 139 136 - 145 mEq/L [facility] Comment:Performed at [facility] [place], [place] 02/18/2005 8:06 EDT 02/18/2005 8:08 EDT Allison Alarcon MD CHEMISTRY & BLOOD GAS ORDERA BLES Final Result Performing Organization Address [facility]/ZIP Co de Phone Number [facility] [address] [place] [address] * (ABNORMAL) SODIUM (02/17/2005 6:20 EDT) Sodium 149(H) 136 - 145 mEq/L [facility] 02/17/2005 6:20 EDT 02/17/2005 6:45 EDT us Allison Alarcon MD CHEMISTRY & BLOOD GAS ORDERA BLES Final Result Performing Organization Address [facility] Co de Phone Number [facility] [address] [place] [address] * (ABNORMAL) AST (02/17/2005 6:20 EDT) AST 176(H) 16 - 38 U/L [facility] 02/17/2005 6:20 EDT 02/17/2005 6:45 EDT us Allison Alarcon MD CHEMISTRY & BLOOD GAS ORDERA BLES Final Result Performing Organization Address [facility]/ZIP Co de Phone Number [facility] [address] [place] [address] * (ABNORMAL) ALT (02/17/2005 6:20 EDT) ALT 338(H) 10 - 45 U/L [facility] 02/17/2005 6:20 EDT 02/17/2005 6:45 EDT us Allison Alarcon MD CHEMISTRY & BLOOD GAS ORDERA BLES Final Result Performing Organization Address [facility] Co de Phone Number [facility] [address] [place] [address] * (ABNORMAL) SODIUM (02/16/2005 6:00 EDT) Sodium 154(H) 136 - 145 mEq/L [facility] Comment:Performed at [place], [place] 02/16/2005 6:00 EDT 02/16/2005 7:48 EDT us Allison Alarcon MD CHEMISTRY & BLOOD GAS ORDERA BLES Final Result Performing Organization Address [facility] de Phone Number [facility] [address] [place] [address] * (ABNORMAL) SODIUM (02/15/2005 12:52 EDT) Sodium 155(H) 136 - 145 mEq/L [facility] Comment:Performed at [place], [place] 02/15/2005 12:5 2 EDT 02/15/2005 12:54 EDT us Allison Alarcon MD CHEMISTRY & BLOOD GAS ORDERA BLES Final Result Performing Organization Address [facility] de Phone Number [facility] [address] [place] [address] * UA REFLEX (02/15/2005 10:17 EDT) UA Billing Microscopic not indicated. [facility] 02/15/2005 10:1 7 EDT 02/15/2005 10:31 EDT us Allison Alarcon MD URINALYSIS ORDERABLES Final Result Performing Organization Address [facility] Co de Phone Number [facility] [address] [place] [address] * URINALYSIS (02/15/2005 10:17 EDT) Color, UA [facility] Clarity, UA [facility] Glucose, UA NORM [facility] Bilirubin, UA [facility]G [facility] Ketones, UA NEG [facility] Specific [place], Urine 1.005 - 1.02 [facility] [...] URINALYSIS ORDERABLES Final Result Performing Organization Address [facility] de Phone Number [facility] [address] [place] [address] * URINALYSIS (02/15/2005 10:17 EDT) Color, UA Yellow [facility] Clarity, UA Clear [facility] Glucose, UA Norm NORM [facility] Bilirubin, UA Neg [facility] Ketones, UA Neg NEG [facility] Specific [place], Urine 1.010 1.005 - 1.02 [facility] [...] URINALYSIS ORDERABLES Final Result Performing Organization Address [facility] de Phone Number [facility] [address] [place] [address] * (ABNORMAL) PHOSPHORUS (02/15/2005 6:20 EDT) Phosphorus 6.2(H) 2.9 - 5.4 mg/dl [facility] Comment:Performed at [place], [place] 02/15/2005 6:20 EDT 02/15/2005 6:34 EDT Allison Alarcon MD CHEMISTRY & BLOOD GAS ORDERA BLES Final Result Performing Organization Address [facility] de Phone Number [facility] [address] [place] [address] * PREALBUMIN (02/15/2005 6:20 EDT) Prealbumin 34 mg/dl [facility] Comment:Slightly lipemic 02/15/2005 6:20 EDT 02/15/2005 6:34 EDT Allison Alarcon MD CHEMISTRY & BLOOD GAS ORDERA BLES Final Result Performing Organization Address [facility] Phone Number [facility] [address] [place] [address] * (ABNORMAL) SODIUM (02/15/2005 6:20 EDT) Sodium 158(HH) 136 - 145 mEq/L [facility] Comment: Sample retested, result confirmed Performed at [place], [place] 02/15/2005 6:20 EDT 02/15/2005 6:34 EDT Allison Alarcon MD CHEMISTRY & BLOOD GAS ORDERA BLES Final Result Performing Organization Address [facility] de Phone Number [facility] [address] [place] [address] * MAGNESIUM (02/15/2005 6:20 EDT) Magnesium 2.2 1.7 - 2.8 mg/dl [facility] Comment:Performed at [place], [place] 02/15/2005 6:20 EDT 02/15/2005 6:34 EDT Allison Alarcon MD CHEMISTRY & BLOOD GAS ORDERA BLES Final Result Performing Organization Address [facility] Co de Phone Number [facility] [address] [place] [address] * (ABNORMAL) LIPID PROFILE (INCLUDES CHOLESTEROL, TRIGLYCERIDES, HDL, LDL) (02/15/2005 6:20 EDT) Cholesterol 283 mg/dl [facility] Comment: Desirable:<200 Borderline:200-239 High Risk:>[id number] Sample retested, result confirmed Triglycerides 958(H) 34 - 165 mg/dl [facility] HDL 39 mg/dl [facility] Comment: Highly Desirable:>60 Desirable:35-60 High Risk:<35 LDL, Calculated Triglyceride greater than 400 mg/dl, LDL calculation invalid. Desirable:<130 Borderline:130- 159 High Risk:>[id number] mg/dl [facility] Chol/HDL Ratio 7.3 [facility] Fasting? Unknown [facility] [place] [facility] 02/15/2005 6:20 EDT 02/15/2005 6:34 EDT us Allison Alarcon MD CHEMISTRY & BLOOD GAS ORDERA BLES Final Result Performing Organization Address [facility] de Phone Number [facility] [address] [place] [address] * CREATININE (02/15/2005 6:20 EDT) Creatinine 0.8 0.6 - 1.2 mg/dl [facility] Comment:Performed at [place] 02/15/2005 6:20 EDT 02/15/2005 6:34 EDT Allison Alarcon MD HISTORICAL LAB FOR SQ LOAD F inal Result Performing Organization Address [facility] de Phone Number [facility] [address] [place] [address] * BUN (02/15/2005 6:20 EDT) BUN 17 8 - 21 mg/dl [facility] Comment:Performed at [place] 02/15/2005 6:20 EDT 02/15/2005 6:34 EDT us Allison Alarcon MD CHEMISTRY & BLOOD GAS ORDERA BLES Final Result Performing Organization Address [facility] de Phone Number [facility] [address] [place] [address] * (ABNORMAL) AST (02/15/2005 6:20 EDT) Pathologist [facility] AST 134(H) 16 - 38 U/L [facility] Comment:Performed at [place] 02/15/2005 6:20 EDT 02/15/2005 6:34 EDT us Allison Alarcon MD CHEMISTRY & BLOOD GAS ORDERA BLES Final Result Performing Organization Address [facility] de Phone Number [facility] [address] [place] [address] * (ABNORMAL) ALT (02/15/2005 6:20 EDT) Pathologist [facility] ALT 391(H) 10 - 45 U/L [facility] Comment:Performed at [place] 02/15/2005 6:20 EDT 02/15/2005 6:34 EDT us Allison Alarcon MD CHEMISTRY & BLOOD GAS ORDERA BLES Final Result Performing Organization Address [facility] de Phone Number [facility] [address] [place] [address] * ALKALINE PHOSPHATASE (02/15/2005 6:20 EDT) Total Alkaline Phosphatase 223 130 - 525 U/L [facility] Comment:Performed at [place] 02/15/2005 6:20 EDT 02/15/2005 6:34 EDT us Allison Alarcon MD CHEMISTRY & BLOOD GAS ORDERA BLES Final Result Performing Organization Address [facility] de Phone Number [facility] [address] [place] [address] * SODIUM (02/13/2005 6:25 EDT) Sodium 140 136 - 145 mEq/L [facility] Comment:Performed at [place] 02/13/2005 6:25 EDT 02/13/2005 6:38 EDT us Allison Alarcon MD CHEMISTRY & BLOOD GAS ORDERA BLES Final Result Performing Organization Address [facility] de Phone Number [facility] [address] [place] [address] * (ABNORMAL) SODIUM (02/11/2005 6:50 EDT) Sodium 135(L) 136 - 145 mEq/L [facility] Comment:Performed at [place] 02/11/2005 6:50 EDT 02/11/2005 7:07 EDT us Allison Alarcon MD CHEMISTRY & BLOOD GAS ORDERA BLES Final Result Performing Organization Address [facility] de Phone Number [facility] [address] [place] [address] * (ABNORMAL) SODIUM (02/08/2005 6:40 EDT) Sodium 147(H) 136 - 145 mEq/L [facility] Comment:Performed at [place] 02/08/2005 6:40 EDT 02/08/2005 6:43 EDT Allison Alarcon MD CHEMISTRY & BLOOD GAS ORDERA BLES Final Result Performing Organization Address [facility] Co de Phone Number [facility] [address] [place] [address] * SODIUM (02/07/2005 6:00 EDT) Sodium 145 136 - 145 mEq/L [facility] Comment:Performed at [place] 02/07/2005 6:00 EDT 02/07/2005 6:33 EDT Allison Alarcon MD CHEMISTRY & BLOOD GAS ORDERA BLES Final Result Performing Organization Address [facility] de Phone Number [facility] [address] [place] [address] * (ABNORMAL) SODIUM (02/06/2005 7:00 EDT) Sodium 146(H) 136 - 145 mEq/L [facility] Comment: Sample retested, result confirmed Performed at [facility], [place], [place] 02/06/2005 7:00 EDT 02/06/2005 7:03 EDT Allison Alarcon MD CHEMISTRY & BLOOD GAS ORDERA BLES Final Result Performing Organization Address [facility] de Phone Number [facility] [address] [place] [address] * (ABNORMAL) ELECTROLYTES (02/03/2005 10:00 EDT) Sodium 135(L) 136 - 145 mEq/L [facility] Potassium 5.2 3.6 - 5.2 mEq/L [facility] Chloride 96 96 - 110 mEq/L [facility] CO2 27 24 - 32 mEq/L [facility] Comment:Performed at [facility], [place], [place] 02/03/2005 10:0 0 EDT 02/03/2005 10:19 EDT us Allison Alarcon MD CHEMISTRY & BLOOD GAS ORDERA BLES Final Result Performing Organization Address [facility] de Phone Number [facility] [address] [place] [address] * (ABNORMAL) SODIUM (02/01/2005 11:47 EDT) Sodium 134(L) 136 - 145 mEq/L [facility] Comment:Performed at [place], [place] 02/01/2005 11:4 7 EDT 02/01/2005 11:49 EDT Allison Alarcon MD CHEMISTRY & BLOOD GAS ORDERA BLES Final Result Performing Organization Address [facility] de Phone Number [facility] [address] [place] [address] * PREALBUMIN (01/30/2005 6:45 EDT) Pathologist [facility] Prealbumin 25 mg/dl [facility] 01/30/2005 6:45 EDT 01/30/2005 7:18 EDT Allison Alarcon MD CHEMISTRY & BLOOD GAS ORDERA BLES Final Result Performing Organization Address [facility] de Phone Number [facility] [address] [place] [address] * ELECTROLYTES (01/30/2005 6:45 EDT) Sodium 144 136 - 145 mEq/L [facility] Potassium 4.4 3.6 - 5.2 mEq/L [facility] Chloride 105 96 - 110 mEq/L [facility] CO2 27 24 - 32 mEq/L [facility] Comment:Performed at [place], [place] 01/30/2005 6:45 EDT 01/30/2005 7:18 EDT Allison Alarcon MD CHEMISTRY & BLOOD GAS ORDERA BLES Final Result Performing Organization Address [facility] de Phone Number [facility] [address] [place] [address] * CREATININE (01/30/2005 6:45 EDT) Creatinine 0.7 0.6 - 1.2 mg/dl [facility] Comment:Performed at [facility], [place], [place] 01/30/2005 6:45 EDT 01/30/2005 7:18 EDT Allison Alarcon MD HISTORICAL LAB FOR SQ LOAD F inal Result Performing Organization Address [facility] de Phone Number [facility] [address] [place] [address] * BUN (01/30/2005 6:45 EDT) BUN 12 8 - 21 mg/dl [facility] Comment:Performed at [facility], [place], [place] 01/30/2005 6:45 EDT 01/30/2005 7:18 EDT Allison Alarcon MD CHEMISTRY & BLOOD GAS ORDERA BLES Final Result Performing Organization Address [facility] de Phone Number [facility] [address] [place] [address] * (ABNORMAL) SODIUM (01/28/2005 6:40 EDT) Sodium 151(H) 136 - 145 mEq/L [facility] Comment:Performed at [place], [place] 01/28/2005 6:40 EDT 01/28/2005 6:41 EDT us Allison Alarcon MD CHEMISTRY & BLOOD GAS ORDERA BLES Final Result Performing Organization Address [facility] de Phone Number [facility] [address] [place] [address] * (ABNORMAL) SODIUM (01/27/2005 7:10 EDT) Sodium 155(H) 136 - 145 mEq/L [facility] 01/27/2005 7:10 EDT 01/27/2005 7:40 EDT us Allison Alarcon MD CHEMISTRY & BLOOD GAS ORDERA BLES Final Result Performing Organization Address [facility] de Phone Number [facility] [address] [place] [address] * (ABNORMAL) SODIUM (01/26/2005 7:45 EDT) Sodium 148(H) 136 - 145 mEq/L [facility] Comment:Heparinized plasma. 01/26/2005 7:45 EDT 01/26/2005 8:47 EDT us Allison Alarcon MD CHEMISTRY & BLOOD GAS ORDERA BLES Final Result Performing Organization Address [facility] de Phone Number [facility] [address] [place] [address] * (ABNORMAL) SODIUM (01/25/2005 11:15 EDT) Sodium 152(H) 136 - 145 mEq/L [facility] Comment:Performed at [place] [place] 01/25/2005 11:1 5 EDT 01/25/2005 11:17 EDT us Allison Alarcon MD CHEMISTRY & BLOOD GAS ORDERA BLES Final Result Performing Organization Address [facility] de Phone Number [facility] [address] [place] [address] * (ABNORMAL) SODIUM (01/25/2005 6:45 EDT) Sodium 153(H) 136 - 145 mEq/L [facility] Comment: Sample retested, result confirmed Performed at [place], [place] 01/25/2005 6:45 EDT 01/25/2005 7:13 EDT us Allison Alarcon MD CHEMISTRY & BLOOD GAS ORDERA BLES Final Result Performing Organization Address [facility] de Phone Number [facility] [address] [place] [address] * SODIUM (01/24/2005 6:45 EDT) Sodium 140 136 - 145 mEq/L [facility] Comment:Performed at [place], [place] 01/24/2005 6:45 EDT 01/24/2005 6:53 EDT Allison Alarcon MD CHEMISTRY & BLOOD GAS ORDERA BLES Final Result Performing Organization Address [facility]/ZIP Co de Phone Number [facility] [address] [place] [address] * SODIUM (01/23/2005 6:50 EDT) Sodium 136 136 - 145 mEq/L [facility] Comment:Performed at [place], [place] 01/23/2005 6:50 EDT 01/23/2005 7:20 EDT us Allison Alarcon MD CHEMISTRY & BLOOD GAS ORDERA BLES Final Result Performing Organization Address [facility] de Phone Number [facility] [address] [place] [address] * (ABNORMAL) LIPID PROFILE (INCLUDES CHOLESTEROL, TRIGLYCERIDES, HDL, LDL) (01/23/2005 6:50 EDT) Cholesterol 154 mg/dl [facility] Comment: Desirable:<200 Borderline:200-239 High Risk:>ri=491 Triglycerides 426(H) 34 - 165 mg/dl [facility] HDL 32 mg/dl [facility] Comment: Highly Desirable:>60 Desirable:35-60 High Risk:<35 Slightly lipemic LDL, Calculated Triglyceride greater than 400 mg/dl, LDL calculation invalid. Desirable:<130 Borderline:130- 159 High Risk:>wr=369 Slightly lipemic mg/dl [facility] Chol/HDL Ratio 4.8 Slightly lipemic [facility] Fasting? Unknown Performed at [place], [place] [facility] 01/23/2005 6:50 EDT 01/23/2005 7:20 EDT Allison Alarcon MD CHEMISTRY & BLOOD GAS ORDERA BLES Final Result Performing Organization Address [facility]/ZIP Co de Phone Number [facility] [address] [place] [address] * (ABNORMAL) AST (01/23/2005 6:50 EDT) AST 44(H) 16 - 38 U/L [facility] Comment:Performed at [place], [place] 01/23/2005 6:50 EDT 01/23/2005 7:20 EDT us Allison Alarcon MD CHEMISTRY & BLOOD GAS ORDERA BLES Final Result Performing Organization Address [facility] de Phone Number [facility] [address] [place] [address] * (ABNORMAL) ALT (01/23/2005 6:50 EDT) Pathologist [facility] ALT 105(H) 10 - 45 U/L [facility] Comment:Performed at [place], [place] 01/23/2005 6:50 EDT 01/23/2005 7:20 EDT us Allison Alarcon MD CHEMISTRY & BLOOD GAS ORDERA BLES Final Result Performing Organization Address [facility] de Phone Number [facility] [address] [place] [address] * ALKALINE PHOSPHATASE (01/23/2005 6:50 EDT) Pathologist [facility] Total Alkaline Phosphatase 192 130 - 525 U/L [facility] Comment:Performed at [place], [place] 01/23/2005 6:50 EDT 01/23/2005 7:20 EDT us Allison Alarcon MD CHEMISTRY & BLOOD GAS ORDERA BLES Final Result Performing Organization Address [facility] de Phone Number [facility] [address] [place] [address] * (ABNORMAL) SODIUM (01/22/2005 6:25 EDT) Sodium 135(L) 136 - 145 mEq/L [facility] Comment:Performed at [place], [place] 01/22/2005 6:25 EDT 01/22/2005 6:34 EDT Allison Alarcon MD CHEMISTRY & BLOOD GAS ORDERA BLES Final Result Performing Organization Address [facility] de Phone Number [facility] [address] [place] [address] * (ABNORMAL) SODIUM (01/21/2005 16:10 EDT) Sodium 130(L) 136 - 145 mEq/L [facility] Comment:Performed at [place], [place] 01/21/2005 16:1 0 EDT 01/21/2005 16:12 EDT Allison Alarcon MD CHEMISTRY & BLOOD GAS ORDERA BLES Final Result Performing Organization Address [facility] Co de Phone Number [facility] [address] [place] [address] * (ABNORMAL) SODIUM (01/21/2005 6:50 EDT) Sodium 129(L) 136 - 145 mEq/L [facility] Comment:Performed at [place], [place] 01/21/2005 6:50 EDT 01/21/2005 6:59 EDT Allison Alarcon MD CHEMISTRY & BLOOD GAS ORDERA BLES Final Result Performing Organization Address [facility] de Phone Number [facility] [address] [place] [address] * BACTERIAL CULTURE, URINE (01/20/2005 13:30 EDT) Specimen Description Urine [facility] Result No growth [facility] Report Status Final [id number] [facility] 01/20/2005 13:3 0 EDT 01/20/2005 16:43 EDT Allison Alarcon MD MICROBIOLOGY - GENERAL ORDER LYNDSEY Final Result Performing Organization Address City/[facility]/ZIP Co de Phone Number [facility] [address] [place] [address] * (ABNORMAL) UA WITH MICROSCOPIC (01/20/2005 13:30 EDT) Color, UA Yellow [facility] Clarity, UA Clear [facility] Glucose, UA Norm NORM [facility] Bilirubin, UA Neg [facility]G [facility] Ketones, UA Neg NEG [facility] Specific [place], Urine >1.030(H) 1.005 - 1.02 [facility] [...] URINALYSIS ORDERABLES Final Result Performing Organization Address City/[facility]/ZIP Co de Phone Number [facility] [address] [place] [address] * UA WITH MICROSCOPIC (01/20/2005 13:30 EDT) Color, UA [facility] Clarity, UA [facility] Glucose, UA NORM [facility] Bilirubin, UA NEG [facility] Ketones, UA NEG [facility] Specific [place], Urine 1.005 - 1.02 [facility] [...] URINALYSIS ORDERABLES Final Result Performing Organization Address [facility] de Phone Number [facility] [address] [place] [address] * CULTURE IF UA POSITIVE (01/20/2005 13:30 EDT) Pathologist [facility] Culture if Indicated Culture indicated by urinalysis results. [facility] 01/20/2005 13:3 0 EDT 01/20/2005 13:47 EDT Allison Alarcon MD MICROBIOLOGY - GENERAL ORDER LYNDSEY Final Result Performing Organization Address [facility] de Phone Number [facility] [address] [place] [address] * SODIUM (01/20/2005 6:30 EDT) Sodium 136 136 - 145 mEq/L [facility] 01/20/2005 6:30 EDT 01/20/2005 7:06 EDT us Allison Alarcon MD CHEMISTRY & BLOOD GAS ORDERA BLES Final Result Performing Organization Address [facility] de Phone Number [facility] [address] [place] [address] * SODIUM (01/19/2005 7:45 EDT) Sodium 143 136 - 145 mEq/L [facility] Comment: SHORT SAMPLED Performed at [place], [place] 01/19/2005 7:45 EDT 01/19/2005 7:53 EDT us Allison Alarcon MD CHEMISTRY & BLOOD GAS ORDERA BLES Final Result Performing Organization Address [facility] de Phone Number [facility] [address] [place] [address] * (ABNORMAL) SODIUM (01/18/2005 6:15 EDT) Sodium 135(L) 136 - 145 mEq/L [facility] Comment:Performed at [place], [place] 01/18/2005 6:15 EDT 01/18/2005 6:31 EDT us Allison Alarcon MD CHEMISTRY & BLOOD GAS ORDERA BLES Final Result Performing Organization Address [facility] de Phone Number [facility] [address] [place] [address] * SODIUM (01/17/2005 6:45 EDT) Sodium 141 136 - 145 mEq/L [facility] Comment:Performed at [place], [place] 01/17/2005 6:45 EDT 01/17/2005 6:48 EDT us Allison Alarcon MD CHEMISTRY & BLOOD GAS ORDERA BLES Final Result Performing Organization Address [facility] de Phone Number [facility] [address] [place] [address] * (ABNORMAL) LIPID PROFILE (INCLUDES CHOLESTEROL, TRIGLYCERIDES, HDL, LDL) (01/17/2005 6:45 EDT) Cholesterol 151 mg/dl [facility] Comment: Desirable:<200 Borderline:200-239 High Risk:>eo=421 Triglycerides 425(H) 34 - 165 mg/dl [facility] Comment:Performed at [facility] [place], [place] HDL 26 mg/dl [facility] Comment: Highly Desirable:>60 Desirable:35-60 High Risk:<35 LDL, Calculated Triglyceride greater than 400 mg/dl, LDL calculation invalid. Desirable:<130 Borderline:130- 159 High Risk:>qd=463 mg/dl [facility] Chol/HDL Ratio 5.8 [facility] Fasting? Unknown [facility] 01/17/2005 6:45 EDT 01/17/2005 6:48 EDT us Allison Alarcon MD CHEMISTRY & BLOOD GAS ORDERA BLES Final Result Performing Organization Address [facility] de Phone Number [facility] [address] [place] [address] * T4 FREE (01/17/2005 6:45 EDT) Free T4 1.3 0.8 - 1.8 ng/dl [facility] 01/17/2005 6:45 EDT 01/17/2005 6:48 EDT Allison Alarcon MD CHEMISTRY & BLOOD GAS ORDERA BLES Final Result Performing Organization Address [facility] de Phone Number [facility] [address] [place] [address] * (ABNORMAL) AST (01/17/2005 6:45 EDT) AST 49(H) 16 - 38 U/L [facility] Comment:Performed at [facility] [place], [place] 01/17/2005 6:45 EDT 01/17/2005 6:48 EDT us Allison Alarcon MD CHEMISTRY & BLOOD GAS ORDERA BLES Final Result Performing Organization Address [facility] de Phone Number [facility] [address] [place] [address] * (ABNORMAL) ALT (01/17/2005 6:45 EDT) ALT 170(H) 10 - 45 U/L [facility] Comment:Performed at [place], [place] 01/17/2005 6:45 EDT 01/17/2005 6:48 EDT us Allison Alarcon MD CHEMISTRY & BLOOD GAS ORDERA BLES Final Result Performing Organization Address [facility] Phone Number [facility] [address] [place] [address] * ALKALINE PHOSPHATASE (01/17/2005 6:45 EDT) Total Alkaline Phosphatase 149 130 - 525 U/L [facility] Comment:Performed at [place], [place] 01/17/2005 6:45 EDT 01/17/2005 6:48 EDT us Allison Alarcon MD CHEMISTRY & BLOOD GAS ORDERA BLES Final Result Performing Organization Address [facility] de Phone Number [facility] [address] [place] [address] * SODIUM (01/16/2005 6:45 EDT) Sodium 137 136 - 145 mEq/L [facility] Comment:Performed at [place], [place] 01/16/2005 6:45 EDT 01/16/2005 7:16 EDT us Allison Alarcon MD CHEMISTRY & BLOOD GAS ORDERA BLES Final Result Performing Organization Address [facility] de Phone Number [facility] [address] [place] [address] documented in this encounter Visit Diagnoses Not on filedocumented in this encounter
--- OUTSIDE RECORDS SUMMARY | 2024-08-03 13:56 | XMS_ITS | Encounter Summary ---
Author Organization [facility] Address [address] [place] [address] Care Team Providers Care Packing Machine Can Feeder Name Role Phone Yan Demarco MD Primary Care Provider [phone] Corin Skinner MD Primary Care Provider [phone] Akil Serrano MD Primary Care Provider [phone] Yossi Torres MD Primary Care Provider [phone] Emilee Cody MD Primary Care Provider + Ren Vaz MD Primary Care Provider [phone] Encounter Details Date Type Department Care Team (Late st Contact Info) Description 03/27/2005 Before PRISM Converted Visit (Maple) [facility] Pediatric [facility]rology - [place] [address] [place], [place] [address] Hilton Álvarez MD [address] [place] [phone] Social History Tobacco Use Types Packs/Day [...] Office Visit [facility] Endocrinology [address] [place] [address] Wilder Zaidi, DO [address] [place], [...] on filedocumented in this encounter Care Teams Packing Machine Can Feeder Relationship Specialty Start Date End Date Yan Demarco MD [address] [place] [address] PCP - General 08/22/09 02/20/10 Corin Skinner MD [address] [place] [phone] PCP - General 10/24/08 08/21/09 Akil Serrano MD [address] [facility] [phone] PCP - General 02/21/10 04/16/11 Yossi Torres MD [address] [place] [phone] PCP - General 04/17/11 03/14/16 Emilee Cody MD [address] [place] [phone] PCP - General 03/15/16 09/29/18 Ren Vaz MD [address] [place] [address] PCP - General 09/30/18 documented as of this encounter
--- OUTSIDE RECORDS SUMMARY | 2024-08-03 13:56 | XMS_ITS | Encounter Summary ---
Author Organization [facility] Address [address] [place] [address] Care Team Providers Care Senior Premium Auditor Name Role Phone Yan Demarco MD Primary Care Provider [phone] Corin Skinner MD Primary Care Provider [phone] Akil Serrano MD Primary Care Provider [phone] Yossi Torres MD Primary Care Provider [phone] Emilee Cody MD Primary Care Provider + Ren Vaz MD Primary Care Provider [phone] Encounter Details Date Type Department Care Team (Late st Contact Info) Description 08/13/2005 Before PRISM Converted Visit (Maple) [facility] - [facility] [address] [place], [place] [phone] Hilton Álvarez MD [address] [place] [phone] Social History Tobacco Use Types Packs/Day Years Used Date Smoking Tobacco: Never Assessed Sex and Gender Information Value Date Recorded Sex Assigned at Not on file Legal Sex Male 18:35 EST Gender Identity Not on file Sexual Orientation Not on file documented as of this encounter Progress Notes * Ricki, Conv Fitter / Welder - 09/06/20092034 EST DIVISION OF NEUROSURGERY PROGRESS/FOLLOWUP NOTE August 13, 2005 Kris Drew MD [address] [place] [address] [place] [address] Drew: I had the pleasure of following up Miguel Angel Burgos in the pediatric neurosurgery clinic today with hismother, the socially responsible investment adviser from your institution, and two of his care attendants at [facility]. Since I saw Miguel Angel last, he [...] Hilton Álvarez MD 08/20/2005 13:44 Carolina Tang ProfessorWhite [facility]unction [facility] Medical CenterDivision of Neurological SurgeryHilton Álvarez MD Hilton Álvarez MD Project Development Manager [facility] Division of Neurological Surgery - Hilton Álvarez MD P - bb Job ID: [id number] Document ID: [id number] cc: Kris Drew MD documented in this encounter Plan of Treatment Upcoming Encounters Date Type Department Care Team (Late st Contact Info) Description 10/01/2024 13:40 EDT Office Visit [facility] Endocrinology - [place] [address] [place] [address] Wilder Zaidi, DO [address] [place] [address] documented as of this encounter Procedures Procedure Name Priority Date/Time Associated Diagnosis Comments MR HEAD W/WO CONTRAST 08/13/2005 13:23 EST documented in this encounter Results * MR HEAD W/WO CONTRAST (08/13/2005 13:23 EST) Anatomical Region Laterality Modality Other 08/13/2005 13:2 3 EST Narrative 02/03/2009 5:03 EDT PATIENT NEEDS TO BE SENT TO [facility] FOR ANESTHESIA HEADACHES, S/P CRANIOPHOYRGRAM RESECTION [...] 02/03/2009 PATIENT NEEDS TO BE SENT TO [facility] FOR ANESTHESIA HEADACHES, S/P CRANIOPHOYRGRAM RESECTION [...] filedocumented in this encounter Care Teams Senior Premium Auditor Relationship Specialty Start Date End Date Yan Demarco MD [address] [place] [address] PCP - General 08/22/09 02/20/10 Corin Skinner MD [address] [place] [phone] PCP - General 10/24/08 08/21/09 Akil Serrano MD [address] [place] [address] [phone] PCP - General 02/21/10 04/16/11 Yossi Torres MD [address] [place] [phone] PCP - General 04/17/11 03/14/16 Emilee Cody MD [address] [place] [phone] PCP - General 03/15/16 09/29/18 Ren Vaz MD [address] [place] [address] [place] [address] PCP - General 09/30/18 documented as of this encounter
--- OUTSIDE RECORDS SUMMARY | 2024-08-03 13:56 | XMS_ITS | Encounter Summary ---
Author Organization [facility] Address [address] [place] [address] Care Team Providers Care Transport Rn Name Role Phone Yan Demarco MD Primary Care Provider Corin Skinner MD Primary Care Provider [phone] Encounter Details Date Type Department Care Team (Late st Contact Info) Description 01/31/2005 Before PRISM Converted Visit (Maple) [facility] - Maple conversion [address] [place] [address] Wicho Carlton MD [address] [place] [address] Social History Tobacco Use Types [...] Carlton MD P - ss Job ID: [id number] Document ID: [id number] cc: documented in this encounter Plan of Treatment Upcoming Encounters Date Type Department Care Team (Late st Contact Info) Description 10/01/2024 13:40 EDT Office Visit [facility] Endocrinology - [facility] [address] [place] [address] Wilder Zaidi, [address] [facility] [address] [place] [phone] documented as of this encounter Visit Diagnoses Not on filedocumented in this encounter Care Teams Transport Rn Relationship Specialty Start Date End Date Yan Demarco MD [address] [place] [address] PCP - General 08/22/09 02/20/10 Corin Skinner MD [address] [place] [phone] PCP - General 10/24/08 08/21/09 documented as of this encounter
--- OUTSIDE RECORDS SUMMARY | 2024-08-03 13:56 | XMS_ITS | Encounter Summary ---
Author Organization [facility] Address [address] [place] [address] Care Team Providers Care Rivet Heater Name Role Phone Unavailable Primary Care Provider Unavailabl e Encounter Details Date Type Department Care Team (Late st Contact Info) Description 08/13/2005 9:56 EST - 08/13/2005 11:59 EST Hospital Encounter [facility] Perioperative Services- [facility] [address] [place], [place] [address] Hilton Álvarez MD [address] [place] [address] [phone] Discharge Disposition: Home or Self Care Social [...] [facility] Endocrinology - [facility] [address] [place] [address] Wilder Zaidi, 62 [facility] [address] [place] [address] documented as of this encounter [...] 3 EST 08/13/2005 17:30 EST Skyler Edwards [facility] CHEMISTRY & BL OOD GAS ORDERABLES Final Result [facility] [address] [place] [address] * (ABNORMAL) INSULIN LIKE GROWTH FACTOR I (IGF-1) (08/13/2005 17:03 EST) Insulin-Like GF-1 54Unit: ng/mL(Note) -- EXPECTED VALUES -- ? (Ref Range) 237 to 996 ? Test Performed by: ? [facility] Path[facility] ? [address] [place] [address] ? Adjuster Leader: Hamzah Mcghee M.D. ?(L) [facility] 08/13/2005 17:0 3 EST 08/13/2005 17:30 EST Skyler Edwards MDCM CHEMISTRY & BL OOD GAS ORDERABLES Final Result [facility] [address] [place] [address] * (ABNORMAL) INSULIN-LIKE GROWTH FACTOR BINDING PROTEIN 3 (IGFBP-3), SERUM (08/13/2005 17:03 EST) IGFBP-3 2.6Unit: ug/mL(Note) -- EXPECTED VALUES -- ? (Ref Range) 3.5 to 10 ? Devonte Stages ??Males ?I ? 1.2-6.4 ? II ? 2.8-6.9 ? III ?3.9-9.4 ? IV ? 3.3-8.1 ?V ? 2.7-9.1 ? Test Performed by: ? [facility] ? [address] , [place] [address] ? Adjuster Leader: Hamzah Mcghee M.D. ?(L) [facility] 08/13/2005 17:0 3 EST 08/13/2005 17:30 EST Skyler Von Aburto Grace [facility] CHEMISTRY & BL OOD GAS ORDERABLES Final Result Performing Organization Address [facility] de Phone Number [facility] [address] [place] [address] * T4 FREE (08/13/2005 17:03 EST) Free T4 1.4 0.8 - 1.8 ng/dl [facility] 08/13/2005 17:0 3 EST 08/13/2005 17:30 EST Skyler Edwards [facility] CHEMISTRY & BL OOD GAS ORDERABLES Final Result Performing Organization Address [facility] de Phone Number [facility] [address] [place] [address] * (ABNORMAL) COMPREHENSIVE METABOLIC PANEL (08/13/2005 17:03 [...] 3 EST 08/13/2005 17:30 EST Skyler Edwards [facility] CHEMISTRY & BL OOD GAS ORDERABLES Final Result [facility] [address] [place] [address] documented in this encounter Visit Diagnoses Not on filedocumented in this encounter
--- OUTSIDE RECORDS SUMMARY | 2024-08-03 13:56 | XMS_ITS | Encounter Summary ---
Author Organization [facility] Address [address] [place] [address] Care Team Providers Care Network Internship Name Role Phone Yan Demarco MD Primary Care Provider Corin Skinner MD Primary Care Provider Akil Serrano MD Primary Care Provider [phone] Encounter Details Date Type Department Care Team (Late st Contact Info) Description 12/04/2004 Before PRISM Converted Visit (Maple) [facility] - Maple conversion [address] [place] [address] Allison Alarcon MD [address] [place] [phone] Social History Tobacco Use Types Packs/Day Years [...] - ALLISON ALARCON MD /ss Voice ID: [id number] Doc ID: [id number] times of therapies. PLAN: Continue with full program. (Thirty-five minutes total time, greater than 50% direct discussion and review of patient's care with mom and care coordination with team). - ALLISON ALARCON MD /ss Voice ID: [id number] Doc ID: [id number] documented in this encounter Plan of Treatment Upcoming Encounters Date Type Department Care Team (Late st Contact Info) Description 10/01/2024 13:40 EDT Office Visit [facility] Endocrinology - [facility] [address] [place] [address] Wilder Zaidi, DO [address] [facility] [address] [place] [address] documented as of this encounter Visit Diagnoses Not on filedocumented in this encounter Care Teams Network Internship Relationship Specialty Start Date End Date Yan Demarco MD [address] [place] [address] PCP - General 08/22/09 02/20/10 Corin Skinner MD [address] [place] [phone] PCP - General 10/24/08 08/21/09 Akil Serrano MD [address] [address] PCP - General 02/21/10 04/16/11 documented as of this encounter
--- OUTSIDE RECORDS SUMMARY | 2024-08-03 13:56 | XMS_ITS | Encounter Summary ---
Author Organization [facility] Address [address] [place] [address] Care Team Providers Care Economic Adviser Name Role Phone Unavailable Primary Care Provider Unavailabl e Encounter Details Date Type Department Care Team (Latest Contact Info) Description 11/20/2004 12:11 EDT - 12/31/2004 11:59 EDT Hospital Encounter [facility] Rehabilitation Therapy Unit Level 2 [address] [place] [address] Allison Alarcon MD [address] [place] [phone] [facility]: [facility] Social History [...] triglyceride was repeated and continued to be [id number]. The patient was seen further in evaluation [...] Alarcon MD A - LR Job ID: [id number] Document ID: [id number] cc: MD Kris Mccauley MD Christa M Zehle, MD Paul James Zimakas, MD [address] \* MERGEFORMAT Acosta Enriquez MD A - ck Job ID: [id number] Document ID: [id number] cc: MD Acosta Oakley MD Carol L Thayer, [place] [id number] \* MERGEFORMAT Krissy Chamberlain MD D: - Krissy Chamberlain MD P - mo Job ID: Document ID: [id number] cc: Marvin Hernandez MD Adrian [facility], [id number] documented in this encounter Discharge Disposition Disposition [...] Alarcon MD A - mt Job ID: [id number] Document ID: [id number] cc: 29 [id number] * Allison Alarcon MD - 12/30/2004 0000 [...] Alarcon MD P - lr Job ID: [id number] Document ID: [id number] cc: * Allison Alarcon [...] Alarcon MD P - re Job ID: [id number] Document ID: [id number] cc: * Wicho Carlton [...] Carlton MD P - lr Job ID: [id number] Document ID: [id number] cc: * Allison Alarcon [...] Alarcon MD A - mt Job ID: [id number] Document ID: [id number] cc: bkmk * Allison Alarcon MD - 12/26/2004 0000 EDT INPATIENT PROGRESS NOTE PT LOC: F002 Service Date: 12/26/2004 DIAGNOSIS: Status post CVAs, status post craniopharyngioma resection. SUBJECTIVE: Patient seeming more restless this morning. 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 SUBJECTIVE: [place] team has been noting excellent gains in [...] Alarcon MD P - chelle Job ID: [id number] Document ID: [id number] cc: le * Wicho [...] Carlton MD P - re Job ID: [id number] Document ID: [id number] cc: 24 * Wicho [...] Carlton MD A - mo Job ID: [id number] Document ID: [id number] cc: 6 * Wicho [...] Dr. Castañeda. I also discussed case with [facility] morning and OT aides. Signed by Wicho Carlton MD 12/21/2004 15:23 Nadine Garcia MD Wicho Carlton MD - Wicho Carlton MD A - mo Job ID: [id number] Document ID: [id number] cc: [email or web address] * [place] [...] Castañeda MD P - lr Job ID: [id number] Document ID: [id number] cc: * Wicho Carlton [...] have dictated a letter this morning for psychologist social to assist with placement into a subacute [...] Carlton MD P - mo Job ID: [id number] Document ID: [id number] cc: [id number] * [place] Castañeda MD - 12/20/2004 0000 [...] Castañeda MD P - mo Job ID: [id number] Document ID: [id number] cc: P, hyd * [...] Carlton MD P - ss Job ID: [id number] Document ID: [id number] cc: [id number] * [place] [...] Castañeda MD A - mt Job ID: [id number] Document ID: [id number] cc: * [place] Castañeda [...] Castañeda MD P - [place] Job ID: [id number] Document ID: [id number] cc: * Wicho Carlton MD - 12/18/2004 9833 EDT INPATIENT PROGRESS NOTE PT LOC: F002 [...] Carlton MD P - mo Job ID: [id number] Document ID: [id number] cc: g * [place] [...] Castañeda MD P - mt Job ID: [id number] Document ID: [id number] cc: inst * Wicho [...] Carlton MD P - MT Job ID: [id number] Document ID: [id number] cc: * [place] Castañeda [...] Castañeda MD P - mt Job ID: [id number] Document ID: [id number] cc: * Drew Larson [...] Larson MD P - lr Job ID: [id number] Document ID: [id number] cc: [id number] * Drew Larson MD - 12/15/2004 1939 [...] He remains at subacute status. Signed by Drwe Larson MD 12/17/2004 14:16 Maurice Larson, Leroy Larson MD Drew Larson MD - Drew Larson MD P - lr Job ID: [id number] Document ID: [id number] cc: [facility] CC * Allison Alarcon MD - 12/15/2004 [...] Alarcon MD A - re Job ID: [id number] Document ID: [id number] cc: *st * Allison Alarcon MD - 12/14/2004 1255 EDT INPATIENT PROGRESS NOTE PT LOC: F002 [...] Alarcon MD P - re Job ID: [id number] Document ID: [id number] cc: [id number]??? * Wicho [...] Carlton MD P - mh Job ID: [id number] Document ID: [id number] cc: kend I * [...] Castañeda MD A - re Job ID: [id number] Document ID: [id number] cc: 24 * [place] [...] Castañeda MD P - ss Job ID: [id number] Document ID: [id number] cc: * [place] Castañeda [...] Castañeda MD P - ss Job ID: [id number] Document ID: [id number] cc: 2 * Allison [...] Consider increasing free water. 2. 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 Continue 1:1 with other shifts. (40 minutes total time, greater than 50% care coordination with team and discussion and education with family). Signed by Allison Alarcon MD 12/12/2004 23:51 Sky Hollingsworth MD Allison Alarcon MD - Allison Alarcon MD P - ss Job ID: [id number] Document ID: [id number] cc: t ID: * [...] Castañeda MD A - ss Job ID: [id number] Document ID: [id number] cc: 80 documented in this encounter Plan of Treatment Upcoming Encounters Date Type Department Care Team (Late st Contact Info) Description 10/01/2024 13:40 EDT Office Visit [facility] Endocrinology - [place] [address] [place] [address] Wilder Zaidi, DO [address] [place] [address] documented as of this encounter [...] Doppler interrogation could not be performed adequately. [facility] N[facility]ative 03/02/2009 14:19 EDT POST OP [...] Doppler interrogation could not be performed adequately. [facility] us Ermelinda Lee MD IM US ORDERABLES Final Resul t * (ABNORMAL) SODIUM (12/02/2004 16:30 EDT) Sodium 134(L) 136 - 145 mEq/L [facility] 12/02/2004 16:3 0 EDT 12/02/2004 16:36 EDT us Allison Alarcon MD CHEMISTRY & BLOOD GAS ORDERA BLES Final Result [facility] [address] [place] [address] * BUN (12/02/2004 16:30 EDT) BUN 17 8 - 21 mg/dl [facility] 12/02/2004 16:3 0 EDT 12/02/2004 16:36 EDT us Allison Alarcon MD CHEMISTRY & BLOOD GAS ORDERA BLES Final Result [facility] [address] [place] [address] * CT HEAD WO CONTRAST (11/29/2004 14:39 [...] 145 mEq/L [facility] Comment:Performed at [place], [place] 11/29/2004 6:25 EDT 11/29/2004 6:36 EDT Allison Alarcon MD CHEMISTRY & BLOOD GAS ORDERA BLES Final Result [facility] [address] [place] [address] * BUN (11/29/2004 6:25 EDT) BUN 18 8 - 21 mg/dl [facility] Comment:Performed at [place], [place] 11/29/2004 6:25 EDT 11/29/2004 6:36 EDT Allison Alarcon MD CHEMISTRY & BLOOD GAS ORDERA BLES Final Result Performing Organization Address City/[facility]/ZIP Co de Phone Number [facility] [address] [place] [address] * C. DIFFICILE TOXIN (11/28/2004 13:30 EDT) Specimen Description Feces [facility] Result No C.difficil e toxin A or toxin B detected. [facility] Report Status Final [id number] [facility] 11/28/2004 13:3 0 EDT 11/28/2004 16:20 EDT Allison Alarcon MD MICROBIOLOGY - GENERAL ORDER LYNDSEY Final Result Performing Organization Address [facility] Co de Phone Number [facility] [address] [place] [address] * (ABNORMAL) SODIUM (11/28/2004 12:20 EDT) Sodium 134(L) 136 - 145 mEq/L [facility] Comment:Performed at [facility], [place], [place] 11/28/2004 12:2 0 EDT 11/28/2004 12:41 EDT Allison Alarcon MD CHEMISTRY & BLOOD GAS ORDERA BLES Final Result Performing Organization Address [facility] Co de Phone Number [facility] [address] [place] [address] * BUN (11/28/2004 12:20 EDT) BUN 19 8 - 21 mg/dl [facility] Comment:Performed at [facility], [place], [place] 11/28/2004 12:2 0 EDT 11/28/2004 12:41 EDT Allison Alarcon MD CHEMISTRY & BLOOD GAS ORDERA BLES Final Result Performing Organization Address [facility] Co de Phone Number [facility] [address] [place] [address] * SODIUM (11/27/2004 6:15 EDT) Sodium 137 136 - 145 mEq/L [facility] Comment:Performed at [place], [place] 11/27/2004 6:15 EDT 11/27/2004 6:26 EDT us Allison Alarcon MD CHEMISTRY & BLOOD GAS ORDERA BLES Final Result Performing Organization Address [facility]/ZIP Co de Phone Number [facility] [address] [place] [address] * BUN (11/27/2004 6:15 EDT) BUN 21 8 - 21 mg/dl [facility] Comment:Performed at [place], [place] 11/27/2004 6:15 EDT 11/27/2004 6:26 EDT us Allison Alarcon MD CHEMISTRY & BLOOD GAS ORDERA BLES Final Result Performing Organization Address [facility]/ZIP Co de Phone Number [facility] [address] [place] [address] * (ABNORMAL) TSH (11/26/2004 5:50 EDT) TSH 0.15(L) 0.50 - 5.00 uIU/ml [facility] 11/26/2004 5:50 EDT 11/26/2004 6:53 EDT us Allison Alarcon MD CHEMISTRY & BLOOD GAS ORDERA BLES Final Result Performing Organization Address [facility] Co de Phone Number [facility] [address] [place] [address] * SODIUM (11/26/2004 5:50 EDT) Sodium 138 136 - 145 mEq/L [facility] Comment:Performed at [place], [place] 11/26/2004 5:50 EDT 11/26/2004 6:53 EDT us Allison Alacron MD CHEMISTRY & BLOOD GAS ORDERA BLES Final Result [facility] [address] [place] [address] * T4 FREE (11/26/2004 5:50 EDT) Free T4 1.2 0.8 - 1.8 ng/dl [facility] 11/26/2004 5:50 EDT 11/26/2004 6:53 EDT us Allison Alarcon MD CHEMISTRY & BLOOD GAS ORDERA BLES Final Result Performing Organization Address [facility]/ZIP Co de Phone Number [facility] [address] [place] [address] * BUN (11/26/2004 5:50 EDT) Pathologist [facility] BUN 20 8 - 21 mg/dl [facility] Comment:Performed at [facility] [place], [place] 11/26/2004 5:50 EDT 11/26/2004 6:53 EDT us Allison Alarcon MD CHEMISTRY & BLOOD GAS ORDERA BLES Final Result Performing Organization Address [facility]/ZIP Co de Phone Number [facility] [address] [place] [address] * TESTS ADDED BY PHONE (11/26/2004 5:50 EDT) Tests to be added TSH,FT4 [facility] 11/26/2004 5:50 EDT 11/26/2004 6:53 EDT us Allison Alarcon MD CHEMISTRY & BLOOD GAS ORDERA BLES Final Result [facility] [address] [place] [address] * SODIUM (11/25/2004 15:00 EDT) Sodium 137 136 - 145 mEq/L [facility] 11/25/2004 15:0 0 EDT 11/25/2004 15:12 EDT us Allison Alarcon MD CHEMISTRY & BLOOD GAS ORDERA BLES Final Result Performing Organization Address [facility] de Phone Number [facility] [address] [place] [address] * SODIUM (11/25/2004 6:05 EDT) Sodium 137 136 - 145 mEq/L [facility] Comment:Performed at [place], [place] 11/25/2004 6:05 EDT 11/25/2004 9:31 EDT us Allison Alarcon MD CHEMISTRY & BLOOD GAS ORDERA BLES Final Result Performing Organization Address [facility] de Phone Number [facility] [address] [place] [address] * BUN (11/25/2004 6:05 EDT) BUN 21 8 - 21 mg/dl [facility] Comment:Performed at [place], [place] 11/25/2004 6:05 EDT 11/25/2004 9:31 EDT us Allison Alarcon MD CHEMISTRY & BLOOD GAS ORDERA BLES Final Result Performing Organization Address [facility] de Phone Number [facility] [address] [place] [address] * SODIUM (11/24/2004 6:15 EDT) Sodium 144 136 - 145 mEq/L [facility] Comment:Performed at [place], [place] 11/24/2004 6:15 EDT 11/24/2004 9:58 EDT us Allison Alarcon MD CHEMISTRY & BLOOD GAS ORDERA BLES Final Result Performing Organization Address [facility]/ZIP Co de Phone Number [facility] [address] [place] [address] * (ABNORMAL) BUN (11/24/2004 6:15 EDT) BUN 22(H) 8 - 21 mg/dl [facility] Comment:Performed at [place], [place] 11/24/2004 6:15 EDT 11/24/2004 9:58 EDT us Allison Alarcon MD CHEMISTRY & BLOOD GAS ORDERA BLES Final Result Performing Organization Address [facility] Co de Phone Number [facility] [address] [place] [address] * (ABNORMAL) SODIUM (11/23/2004 5:50 EDT) Sodium 146(H) 136 - 145 mEq/L [facility] Comment:Performed at [place], [place] 11/23/2004 5:50 EDT 11/23/2004 7:26 EDT us Allison Alarcon MD CHEMISTRY & BLOOD GAS ORDERA BLES Final Result Performing Organization Address [facility] de Phone Number [facility] [address] [place] [address] * (ABNORMAL) BUN (11/23/2004 5:50 EDT) BUN 25(H) 8 - 21 mg/dl [facility] Comment:Performed at [place], [place] 11/23/2004 5:50 EDT 11/23/2004 7:26 EDT us Allison Alarcon MD CHEMISTRY & BLOOD GAS ORDERA BLES Final Result Performing Organization Address [facility] Co de Phone Number [facility] [address] [place] [address] * (ABNORMAL) SODIUM (11/22/2004 7:00 EDT) Sodium 147(H) 136 - 145 mEq/L [facility] Comment:Performed at [place], [place] 11/22/2004 7:00 EDT 11/22/2004 7:09 EDT Allison Alarcon MD CHEMISTRY & BLOOD GAS ORDERA BLES Final Result Performing Organization Address [facility] de Phone Number [facility] [address] [place] [address] * CREATININE (11/22/2004 7:00 EDT) Creatinine 0.8 0.6 - 1.2 mg/dl [facility] Comment:Performed at [place], [place] 11/22/2004 7:00 EDT 11/22/2004 7:09 EDT Allison Alarcon MD HISTORICAL LAB FOR SQ LOAD F inal Result Performing Organization Address [facility] de Phone Number [facility] [address] [place] [address] * (ABNORMAL) BUN (11/22/2004 7:00 EDT) BUN 28(H) 8 - 21 mg/dl [facility] Comment:Performed at [place], [place] 11/22/2004 7:00 EDT 11/22/2004 7:09 EDT Allison Alarcon MD CHEMISTRY & BLOOD GAS ORDERA BLES Final Result Performing Organization Address [facility] de Phone Number [facility] [address] [place] [address] * (ABNORMAL) ELECTROLYTES (11/21/2004 6:50 EDT) Sodium 146(H) 136 - 145 mEq/L [facility] Potassium 4.4 3.6 - 5.2 mEq/L [facility] Chloride 105 96 - 110 mEq/L [facility] CO2 33(H) 24 - 32 mEq/L [facility] Comment:Performed at [employer] [employer] [place], [place] 11/21/2004 6:50 EDT 11/21/2004 7:26 EDT Allison Alarcon MD CHEMISTRY & BLOOD GAS ORDERA BLES Final Result Performing Organization Address [facility] de Phone Number [facility] [address] [place] [address] * (ABNORMAL) HEMAGRAM (11/21/2004 6:50 EDT) WBC [...] [facility] RDW-CV 16.0 % [facility] 11/21/2004 6:50 EDT 11/21/2004 7:26 EDT us Allison Alarcon MD HEMATOLOGY & PF4 ORDERABLES Final Result Performing Organization Address [facility] de Phone Number [facility] [address] [place] [address] * CREATININE (11/21/2004 6:50 EDT) Creatinine 0.8 0.6 - 1.2 mg/dl [facility] Comment:Performed at [facility] [place], [place] 11/21/2004 6:50 EDT 11/21/2004 7:26 EDT Allison Alarcon MD HISTORICAL LAB FOR SQ LOAD F inal Result [facility] [address] [place] [address] * (ABNORMAL) BUN (11/21/2004 6:50 EDT) BUN 30(H) 8 - 21 mg/dl [facility] Comment:Performed at [facility], [place], [place] 11/21/2004 6:50 EDT 11/21/2004 7:26 EDT us Allison Alarcon MD CHEMISTRY & BLOOD GAS ORDERA BLES Final Result Performing Organization Address [facility] Co de Phone Number [facility] [address] [place] [address] * SODIUM (11/21/2004 6:00 EDT) Sodium 136 - 145 mEq/L [facility] 11/21/2004 6:00 EDT 11/21/2004 6:41 EDT us Allison Alarcon MD CHEMISTRY & BLOOD GAS ORDERA BLES Final Result Performing Organization Address [facility] Co de Phone Number [facility] [address] [place] [address] documented in this encounter Visit Diagnoses Not on filedocumented in this encounter
--- OUTSIDE RECORDS SUMMARY | 2024-08-03 13:56 | XMS_ITS | Encounter Summary ---
Author Organization [facility] Address [address] [place] [address] Care Team Providers Care Coal Dumping Equipment Operator Name Role Phone Yan Demarco MD Primary Care Provider [phone] Corin Skinner MD Primary Care Provider Akil Serrano MD Primary Care Provider [phone] Encounter Details Date Type Department Care Team (Late st Contact Info) Description 12/06/2004 Before PRISM Converted Visit (Maple) [facility] - Maple conversion [address] [place] [address] Allison Alarcon MD [address] [place] [phone] Social History Tobacco Use Types Packs/Day Years [...] - ALLISON ALARCON MD /re Voice ID: [id number] Doc ID: [id number] ir recommendations later this afternoon. PLAN: 1. Discontinue amantadine. 2. Start Ritalin give dose today then start him tomorrow morning. 3. Offer Percocet as an alternative to codeine. 4. Will flush the PICC with heparin every day to hopefully decrease clotting off. 5. Check BUN, creatinine, sodium, and free T4 tomorrow. 6. UA/C and S. - ALLISON ALARCON MD /re Voice ID: [id number] Doc ID: [id number] documented in this encounter Plan of Treatment Upcoming Encounters Date Type Department Care Team (Late st Contact Info) Description 10/01/2024 13:40 EDT Office Visit [facility] [address] [place] [address] Wilder Zaidi, DO [address] [facility] [address] [place] [address] documented as of this encounter Visit Diagnoses Not on filedocumented in this encounter Care Teams Coal Dumping Equipment Operator Relationship Specialty Start Date End Date Yan Demarco MD [address] [place] [address] PCP - General 08/22/09 02/20/10 Corin Skinner MD [address] [place] [phone] PCP - General 10/24/08 08/21/09 Akil Serrano MD [address] [address] [place], [place] [address] PCP - General 02/21/10 04/16/11 documented as of this encounter
--- OUTSIDE RECORDS SUMMARY | 2024-08-03 13:56 | XMS_ITS | Encounter Summary ---
Author Organization [facility] Address [address] [place] [address] Care Team Providers Care Machined Parts Quality Inspector Name Role Phone Yan Demarco MD Primary Care Provider Corin Skinner MD Primary Care Provider Akil Serrano MD Primary Care Provider [phone] Encounter Details Date Type Department Care Team (Late st Contact Info) Description 12/08/2004 Before PRISM Converted Visit (Maple) [facility] - Maple conversion [address] [place], [place] [address] Raleigh Angelo MD [address] [phone] Social History Tobacco Use Types Packs/Day Years [...] - RALEIGH ANGELO MD /lr Voice ID: [id number] Doc ID: [id number] nthroid, and hydrocortisone. Continue periodic monitoring of electrolytes and renal function. - RALEIGH ANGELO MD /lr Voice ID: [id number] Doc ID: [id number] documented in this encounter Plan of Treatment Upcoming Encounters Date Type Department Care Team (Late st Contact Info) Description 10/01/2024 13:40 EDT Office Visit [facility] [place] Endocrinology - [address] [phone] Wilder Zaidi, [address] [place] [address] [address] [place] [address] documented as of this encounter Visit Diagnoses Not on filedocumented in this encounter Care Teams Machined Parts Quality Inspector Relationship Specialty Start Date End Date Yan Demarco MD [address] [place] [address] PCP - General 08/22/09 02/20/10 Corin Skinner MD [address] [place] [phone] PCP - General 10/24/08 08/21/09 Akil Serrano MD 74 [facility],[address] [place] [address] PCP - General 02/21/10 04/16/11 documented as of this encounter
--- OUTSIDE RECORDS SUMMARY | 2024-08-03 13:56 | XMS_ITS | Encounter Summary ---
Author Organization [facility] Address [address] [place] [address] Care Team Providers Care Behavioral Interventionist Name Role Phone Yan Demarco MD Primary Care Provider [phone] Corin Skinner MD Primary Care Provider Akil Serrano MD Primary Care Provider [phone] Encounter Details Date Type Department Care Team (Late st Contact Info) Description 12/10/2004 Before PRISM Converted Visit (Maple) [facility] - Maple conversion [address] [place] [address] Allison Alarcon MD [address] [place] [phone] Social History Tobacco Use Types Packs/Day Years [...] - ALLISON ALARCON MD /mo Voice ID: [id number] Doc ID: [id number] documented in this encounter Plan of Treatment Upcoming Encounters Date Type Department Care Team (Late st Contact Info) Description 10/01/2024 13:40 EDT Office Visit [facility] Endocrinology - [facility] [address] [place] [address] Wilder Zaidi, 62 [facility] [address] [place] [address] documented as of this encounter Visit Diagnoses Not on filedocumented in this encounter Care Teams Behavioral Interventionist Relationship Specialty Start Date End Date Yan Demarco MD [address] [place] [address] PCP - General 08/22/09 02/20/10 Corin Skinner MD [address] [address] PCP - General 10/24/08 08/21/09 Akil Serrano MD 74 [facility],[address] [address] PCP - General 02/21/10 04/16/11 documented as of this encounter
--- OUTSIDE RECORDS SUMMARY | 2024-08-03 13:56 | XMS_ITS | Encounter Summary ---
Author Organization [facility] Address [address] [place] [address] Care Team Providers Care Pediatric Registered Nurse Name Role Phone Yan Demarco MD Primary Care Provider Corin Skinner MD Primary Care Provider Akil Serrano MD Primary Care Provider [phone] Encounter Details Date Type Department Care Team (Late st Contact Info) Description 12/07/2004 Before PRISM Converted Visit (Maple) [facility] - Maple conversion [address] [place], [place] [address] Raleigh Angelo MD [address] [phone] Social History Tobacco Use Types Packs/Day Years [...] - RALEIGH ANGELO MD /lr Voice ID: [id number] Doc ID: [id number] [facility] ASSESSMENT AND PLAN: Continue full program activities. Review laboratory results when available. - RALEIGH ANGELO MD /lr Voice ID: [id number] Doc ID: [id number] documented in this encounter Plan of Treatment Upcoming Encounters Date Type Department Care Team (Late st Contact Info) Description 10/01/2024 13:40 EDT Office Visit [facility] Endocrinology - [facility] [address] [place], [place] [phone] Wilder Zaidi, 62 [facility] [address] [place] [address] documented as of this encounter Visit Diagnoses Not on filedocumented in this encounter Care Teams Pediatric Registered Nurse Relationship Specialty Start Date End Date Yan Demarco MD [address] [place] [phone] PCP - General 08/22/09 02/20/10 Corin Skinner MD [address] [place] [phone] PCP - General 10/24/08 08/21/09 Akil Serrano MD [address] [place] [address],[facility] [place] [address] [place] [address] PCP - General 02/21/10 04/16/11 documented as of this encounter
--- OUTSIDE RECORDS SUMMARY | 2024-08-03 13:57 | XMS_ITS | Encounter Summary ---
Author Organization [facility] Address [address] [place] [address] Care Team Providers Care Medical Delivery Technician Name Role Phone Yan Demarco MD Primary Care Provider Corin Skinner MD Primary Care Provider Akil Serrano MD Primary Care Provider [phone] Encounter Details Date Type Department Care Team (Late st Contact Info) Description 11/20/2004 Before PRISM Converted Visit (Maple) [facility] - Maple conversion [address] [place] [address] Marvin Gonzalez MD [address] [place] [address] Social History Tobacco Use Types Packs/Day [...] Office Visit [facility] Endocrinology - [facility] [address] [place] [address] Wilder Zaidi, 62 [facility] [address] [place] [address] documented as of this encounter Visit Diagnoses Not on filedocumented in this encounter Care Teams Medical Delivery Technician Relationship Specialty Start Date End Date Yan Demarco MD [address] [place] [address] PCP - General 08/22/09 02/20/10 Corin Skinner MD [address] [place] [phone] PCP - General 10/24/08 08/21/09 Akil Serrano MD [address] [address] PCP - General 02/21/10 04/16/11 documented as of this encounter
--- OUTSIDE RECORDS SUMMARY | 2024-08-03 13:57 | XMS_ITS | Encounter Summary ---
Author Organization [facility] Address [address] [place] [address] Care Team Providers Care Flying Ii Instructor Name Role Phone Yan Demarco MD Primary Care Provider [phone] Corin Skinner MD Primary Care Provider [phone] Akil Serrano MD Primary Care Provider [phone] Encounter Details Date Type Department Care Team (Late st Contact Info) Description 11/20/2004 Before PRISM Converted Visit (Maple) [facility] - Maple conversion [address] [place] [address] Kylie Larson MD [address] [place] [address] Social History Tobacco Use Types Packs/Day Years [...] 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 He will withdraw [...] - 11/20/2004 14:46:57 - ss Voice ID- [id number] Document ID - [id number] cc: SUMMER CHRISTIE MD, REFERRING PHYSICIAN ANCELMO MALLOY MD, REFERRING PHYSICIAN Approved by: KYLIE LARSON MD Attending Physician This document has been electronically signed by KYLIE LARSON MD on 11/21/2004 17:25:21. y. 8. Dr. Castañeda will be consulted to monitor this complicated patient along with us. - 11/20/2004 13:25:35 - KYLIE LARSON MD - 11/20/2004 14:46:57 - ss Voice ID - [id number] Document ID - [id number] cc: ADE MALLOY MD, REFERRING PHYSICIAN SUMMER CHRISTIE MD, REFERRING PHYSICIAN ANCELMO MICHAEL MD Approved by: KYLIE LARSON MD Attending Physician documented in this encounter Plan of Treatment Upcoming Encounters Date Type Department Care Team (Late st Contact Info) Description 10/01/2024 13:40 EDT Office Visit [facility] Endocrinology - [facility] [address] [place], [place] [phone] Wilder Zaidi, 62 [facility] [address] [place] [address] documented as of this encounter Visit Diagnoses Not on filedocumented in this encounter Care Teams Flying Ii Instructor Relationship Specialty Start Date End Date Yan Demarco MD [address] [place] [address] PCP - General 08/22/09 02/20/10 Corin Skinner MD [address] [place] [phone] PCP - General 10/24/08 08/21/09 Akil Serrano MD 74 [facility] [address] [place] [address] PCP - General 02/21/10 04/16/11 documented as of this encounter
--- OUTSIDE RECORDS SUMMARY | 2024-08-03 13:57 | XMS_ITS | Encounter Summary ---
Author Organization [facility] Address [address] [place] [address] Care Team Providers Care Mathematical Engineering Technician Name Role Phone Yan Demarco MD Primary Care Provider [phone] Corin Skinnre MD Primary Care Provider Akil Serrano MD Primary Care Provider [phone] Encounter Details Date Type Department Care Team (Late st Contact Info) Description 11/23/2004 Before PRISM Converted Visit (Maple) [facility] - Maple conversion [address] [place] [address] Kylie Larson MD [address] [place] [address] Social History Tobacco Use Types [...] - KYLIE LARSON MD /re Voice ID: [id number] Doc ID: [id number] n the next few days. We will continue to keep watch on his electrolyte and fluid status. I will keep in contact with Dr. Edwards as necessary. - KYLIE LARSON MD /re Voice ID: [id number] Doc ID:[id number] documented in this encounter Plan of Treatment Upcoming Encounters Date Type Department Care Team (Late st Contact Info) Description 10/01/2024 13:40 EDT Office Visit [facility] Endocrinology - [facility] [address] [place] [address] Wilder Zaidi, DO 62 [facility] [address] [place] [address] documented as of this encounter Visit Diagnoses Not on filedocumented in this encounter Care Teams Mathematical Engineering Technician Relationship Specialty Start Date End Date Yan Demarco MD [address] [place] [address] PCP - General 08/22/09 02/20/10 Corin Skinner MD [address] [address] PCP - General 10/24/08 08/21/09 Akil Serrano MD [address] [place] [address] PCP - General 02/21/10 04/16/11 documented as of this encounter
--- OUTSIDE RECORDS SUMMARY | 2024-08-03 13:57 | XMS_ITS | Encounter Summary ---
Author Organization [facility] Address [address] [place] [address] Care Team Providers Care Garment Looper Name Role Phone Yan Demarco MD Primary Care Provider Corin Skinner MD Primary Care Provider [phone] Akil Serrano MD Primary Care Provider [phone] Encounter Details Date Type Department Care Team (Late st Contact Info) Description 12/03/2004 Before PRISM Converted Visit (Maple) [facility] - Maple conversion [address] [place] [address] Allison Alarcon MD [address] [place] [phone] Social History Tobacco Use Types Packs/Day Years [...] - ALLISON ALARCON MD /mt Voice ID: [id number] Doc ID: [id number] patient's care and care coordination with team and outside providers.) - ALLISON ALARCON MD /mt Voice ID: [id number] Doc ID: [id number] documented in this encounter Plan of Treatment Upcoming Encounters Date Type Department Care Team (Late st Contact Info) Description 10/01/2024 13:40 EDT Office Visit [facility] Endocrinology - [place] [address] [place], [place] [phone] Wilder Zaidi, DO [address] [place] [address] documented as of this encounter Visit Diagnoses Not on filedocumented in this encounter Care Teams Garment Looper Relationship Specialty Start Date End Date Yan Demarco MD [address] [place] [address] PCP - General 08/22/09 02/20/10 Corin Skinner MD [address] [place] [phone] PCP - General 10/24/08 08/21/09 Akil Serrano MD 74 [facility] [address] [place] [address] PCP - General 02/21/10 04/16/11 documented as of this encounter
--- OUTSIDE RECORDS SUMMARY | 2024-08-03 13:57 | XMS_ITS | Encounter Summary ---
Author Organization [facility] Address [address] [place] [address] Care Team Providers Care Internal Affairs Investigator Name Role Phone Yan Demarco MD Primary Care Provider Corin Skinner MD Primary Care Provider Akil Serrano MD Primary Care Provider [phone] Encounter Details Date Type Department Care Team (Late st Contact Info) Description 11/27/2004 Before PRISM Converted Visit (Maple) [facility] - Maple conversion [address] [place], [place] [address] Raleigh Angelo MD [address] [phone] Social History Tobacco Use Types Packs/Day Years [...] - RALEIGH ANGELO MD / Voice ID: [id number] Doc ID: [id number] trolytes, and renal function. - ROCKY ANGELO MD / Voice ID: [id number] Doc ID: [id number] documented in this encounter Plan of Treatment Upcoming Encounters Date Type Department Care Team (Late st Contact Info) Description 10/01/2024 13:40 EDT Office Visit [facility] Endocrinology - [facility] [address] [place] [address] Wilder Zaidi, 62 [facility] [address] [place] [address] documented as of this encounter Visit Diagnoses Not on filedocumented in this encounter Care Teams Internal Affairs Investigator Relationship Specialty Start Date End Date Yan Demarco MD [address] [place] [address] PCP - General 08/22/09 02/20/10 Corin Skinner MD [address] [place] [phone] PCP - General 10/24/08 08/21/09 Akil Serrano MD [address] [place] [address],[address] [address] PCP - General 02/21/10 04/16/11 documented as of this encounter
--- OUTSIDE RECORDS SUMMARY | 2024-08-03 13:57 | XMS_ITS | Encounter Summary ---
Author Organization [facility] Address [address] [place] [address] Care Team Providers Care Home Decorator Name Role Phone Yan Demarco MD Primary Care Provider Corin Skinner MD Primary Care Provider Akil Serrano MD Primary Care Provider [phone] Encounter Details Date Type Department Care Team (Late st Contact Info) Description 11/26/2004 Before PRISM Converted Visit (Maple) [facility] - Maple conversion [address] [place] [address] Allison Alarcon MD 0 [place] [phone] Social History Tobacco Use Types Packs/Day Years [...] - ALLISON ALARCON MD /chelle Voice ID: [id number] Doc ID: [id number] blish some consistency as far as yes [...] - ALLISON ALARCON MD /chelle Voice ID: [id number] Doc ID: [id number] documented in this encounter Plan of Treatment Upcoming Encounters Date Type Department Care Team (Late st Contact Info) Description 10/01/2024 13:40 EDT Office Visit [facility] Endocrinology - [facility] [address] [place] [address] Wilder Zaidi, 62 [facility] [address] [place] [address] documented as of this encounter Visit Diagnoses Not on filedocumented in this encounter Care Teams Home Decorator Relationship Specialty Start Date End Date Yan Demarco MD [address] [place] [address] PCP - General 08/22/09 02/20/10 Corin Skinner MD [address] [place] [phone] PCP - General 10/24/08 08/21/09 Akil Serrano MD [address] [place] [address] 100 [place] [address] PCP - General 02/21/10 04/16/11 documented as of this encounter
--- OUTSIDE RECORDS SUMMARY | 2024-08-03 13:57 | XMS_ITS | Encounter Summary ---
Author Organization [facility] Address [address] [place] [address] Care Team Providers Care Java Integration Developer Name Role Phone Yan Demarco MD Primary Care Provider [phone] Corin Skinner MD Primary Care Provider Akil Serrano MD Primary Care Provider [phone] Encounter Details Date Type Department Care Team (Late st Contact Info) Description 11/22/2004 Before PRISM Converted Visit (Maple) [facility] - Maple conversion [address] [place] [address] Kylie Larson MD [address] [place] [phone] Social History Tobacco Use Types Packs/Day Years [...] - KYLIE LARSON MD /re Voice ID: [id number] Doc ID: [id number] ssa. No other medication changes will be made today. He will continue comprehensive therapy services for neurorehabilitation. - KYLIE LARSON MD re Voice ID: [id number] Doc ID: [id number] documented in this encounter Plan of Treatment Upcoming Encounters Date Type Department Care Team (Late st Contact Info) Description 10/01/2024 13:40 EDT Office Visit [facility] Endocrinology - [facility] [address] [place] [address] Wilder Zaidi, DO 62 [facility] [address] [place] [address] documented as of this encounter Visit Diagnoses Not on filedocumented in this encounter Care Teams Java Integration Developer Relationship Specialty Start Date End Date Yan Demarco MD [address] [place] [address] PCP - General 08/22/09 02/20/10 Corin Skinner MD [address] [address] PCP - General 10/24/08 08/21/09 Akil Serrano MD 74 [facility],[address] [address] PCP - General 02/21/10 04/16/11 documented as of this encounter
--- OUTSIDE RECORDS SUMMARY | 2024-08-03 13:57 | XMS_ITS | Encounter Summary ---
Author Organization [facility] Address [address] [place] [address] Care Team Providers Care Senior Compensation Consultant Name Role Phone Yan Demarco MD Primary Care Provider [phone] Corin Skinner MD Primary Care Provider [phone] Akil Serrano MD Primary Care Provider [phone] Encounter Details Date Type Department Care Team (Late st Contact Info) Description 11/26/2004 Before PRISM Converted Visit (Maple) [facility] - Maple conversion [address] [place], [place] [address] Raleigh Angelo MD [address] [phone] Social History Tobacco Use Types Packs/Day Years [...] - RALEIGH ANGELO MD /mt Voice ID: [id number] Doc ID: [id number] spalpha - RALEIGH ANGELO MD /mt Voice ID: [id number] Doc ID: [id number] documented in this encounter Plan of Treatment Upcoming Encounters Date Type Department Care Team (Late st Contact Info) Description 10/01/2024 13:40 EDT Office Visit [facility] Endocrinology - [address] [phone] Wilder Zaidi, [address] [place] [address] documented as of this encounter Visit Diagnoses Not on filedocumented in this encounter Care Teams Senior Compensation Consultant Relationship Specialty Start Date End Date Yan Demarco MD [address] [place] [phone] PCP - General 08/22/09 02/20/10 Corin Skinner MD [address] [place] [phone] PCP - General 10/24/08 08/21/09 Akil Serrano MD [address] [place] [address],[address] [place] [address] PCP - General 02/21/10 04/16/11 documented as of this encounter
--- OUTSIDE RECORDS SUMMARY | 2024-08-03 13:57 | XMS_ITS | Encounter Summary ---
Author Organization [facility] Address [address] [place] [address] Care Team Providers Care Data Warehousing Manager Name Role Phone Yan Demarco MD Primary Care Provider [phone] Corin Skinner MD Primary Care Provider [phone] Akil Serrano MD Primary Care Provider [phone] Encounter Details Date Type Department Care Team (Late st Contact Info) Description 11/28/2004 Before PRISM Converted Visit (Maple) [facility] - Maple conversion [address] [place], [place] [address] Raleigh Angelo MD [address] [phone] Social History Tobacco Use Types Packs/Day Years [...] - RALEIGH ANGELO MD /lr Voice ID: [id number] Doc ID: [id number] 0Vital signs are stable. The patient is afebrile. Cardiac rhythm is regular. Lung medellin are clear.Abdomen is soft. JVD is not visible. ASSESSMENT AND PLAN: Continue full program activities. Continue gastrostomy tube feedings and fluidadministration. - RALEIGH ANGELO MD /lr Voice ID: [id number] Doc ID: [id number] documented in this encounter Plan of Treatment Upcoming Encounters Date Type Department Care Team (Late st Contact Info) Description 10/01/2024 13:40 EDT Office Visit [facility] Endocrinology - [address] [address] Wilder Zaidi, 62 [facility] [address] [place] [address] documented as of this encounter Visit Diagnoses Not on filedocumented in this encounter Care Teams Data Warehousing Manager Relationship Specialty Start Date End Date Yan Demarco MD [address] [place] [address] PCP - General 08/22/09 02/20/10 Corin Skinner MD [address] [place] [phone] PCP - General 10/24/08 08/21/09 Akil Serrano MD 74 [facility] [place],[address] [address] PCP - General 02/21/10 04/16/11 documented as of this encounter
--- OUTSIDE RECORDS SUMMARY | 2024-08-03 13:57 | XMS_ITS | Encounter Summary ---
Author Organization [facility] Address [address] [place] [address] Care Team Providers Care Electrocardiograph Operator Name Role Phone Yan Demarco MD Primary Care Provider [phone] Corin Skinner MD Primary Care Provider Akil Serrano MD Primary Care Provider [phone] Encounter Details Date Type Department Care Team (Late st Contact Info) Description 11/30/2004 Before PRISM Converted Visit (Maple) [facility] - Maple conversion [address] [place], [place] [address] Raleigh Angelo MD [address] [phone] Social History Tobacco Use Types Packs/Day Years [...] - RALEIGH ANGELO MD /ss Voice ID: [id number] Doc ID: [id number] phaD: 11/30/2004 - RALEIGH ANGELO MD /ss Voice ID: [id number] Doc ID: [id number] documented in this encounter Plan of Treatment Upcoming Encounters Date Type Department Care Team (Late st Contact Info) Description 10/01/2024 13:40 EDT Office Visit [facility] Endocrinology - [facility] [address] [place], [place] [phone] Wilder Zaidi, 62 [facility] [address] [place] [address] documented as of this encounter Visit Diagnoses Not on filedocumented in this encounter Care Teams Electrocardiograph Operator Relationship Specialty Start Date End Date Yan Demarco MD [address] [place] [phone] PCP - General 08/22/09 02/20/10 Corin Skinner MD [address] [place] [phone] PCP - General 10/24/08 08/21/09 Akil Serrano MD 74 [facility] [place] [address] PCP - General 02/21/10 04/16/11 documented as of this encounter
--- OUTSIDE RECORDS SUMMARY | 2024-08-03 13:57 | XMS_ITS | Encounter Summary ---
Author Organization [facility] Address [address] [place] [address] Care Team Providers Care Landscape Supervisor Name Role Phone Yan Demarco MD Primary Care Provider Corin Skinner MD Primary Care Provider Akil Serrano MD Primary Care Provider [phone] Encounter Details Date Type Department Care Team (Late st Contact Info) Description 11/29/2004 Before PRISM Converted Visit (Maple) [facility] - Maple conversion [address] [place], [place] [address] Raleigh Angelo MD [address] [phone] Social History Tobacco Use Types Packs/Day Years [...] - RALEIGH ANGELO MD /re Voice ID: [id number] Doc ID: [id number] oring electrolytes, now on an every other day schedule. - RALEIGH ANGELO MD /re Voice ID: [id number] Doc ID: [id number] documented in this encounter Plan of Treatment Upcoming Encounters Date Type Department Care Team (Late st Contact Info) Description 10/01/2024 13:40 EDT Office Visit [facility] Endocrinology - [facility] [address] [place] [address] Wilder Zaidi, 62 [facility] [address] [place] [address] documented as of this encounter Visit Diagnoses Not on filedocumented in this encounter Care Teams Landscape Supervisor Relationship Specialty Start Date End Date Yan Demarco MD [address] [place] [phone] PCP - General 08/22/09 02/20/10 Corin Skinner MD [address] [place] [phone] PCP - General 10/24/08 08/21/09 Akil Serrano MD [address] [place] [address] PCP - General 02/21/10 04/16/11 documented as of this encounter
--- OUTSIDE RECORDS SUMMARY | 2024-08-03 13:57 | XMS_ITS | Encounter Summary ---
Author Organization [facility] Address [address] [place] [address] Care Team Providers Care Is Manager Name Role Phone Yan Demarco MD Primary Care Provider [phone] Corin Skinner MD Primary Care Provider Akil Serrano MD Primary Care Provider [phone] Encounter Details Date Type Department Care Team (Late st Contact Info) Description 12/02/2004 Before PRISM Converted Visit (Maple) [facility] - Maple conversion [address] [place] [address] Allison Alarcon MD 0 [place] [phone] Social History Tobacco Use Types Packs/Day Years [...] - ALLISON ALARCON MD /re Voice ID: [id number] Doc ID: [id number] PICC line has clotted off. IV team is recommending a TPA treatment and we are waiting for that to be acquired before we can try to get his labs. Otherwise, the patient is remaining stable. - ALLISON ALARCON MD /re Voice ID: [id number] Doc ID: [id number] documented in this encounter Plan of Treatment Upcoming Encounters Date Type Department Care Team (Late st Contact Info) Description 10/01/2024 13:40 EDT Office Visit [facility] Endocrinology - [facility] [address] [place], [place] [phone] Wilder Zaidi, 62 [facility] [address] [place] [address] documented as of this encounter Visit Diagnoses Not on filedocumented in this encounter Care Teams Is Manager Relationship Specialty Start Date End Date Yan Demarco MD [address] [place] [address] PCP - General 08/22/09 02/20/10 Corin Skinner MD [address] [place] [phone] PCP - General 10/24/08 08/21/09 Akil Serrano MD [address] [place] [address],[facility] [address] [place], [place] [address] PCP - General 02/21/10 04/16/11 documented as of this encounter
--- OUTSIDE RECORDS SUMMARY | 2024-08-03 13:57 | XMS_ITS | Encounter Summary ---
Author Organization [facility] Address [address] [place] [address] Care Team Providers Care Bill Peddler Name Role Phone Yan Demarco MD Primary Care Provider Corin Skinner MD Primary Care Provider Akil Serrano MD Primary Care Provider [phone] Encounter Details Date Type Department Care Team (Late st Contact Info) Description 11/29/2004 Before PRISM Converted Visit (Maple) [facility] - Maple conversion [address] [place] [address] Allison Alarcon MD 0 [place] [phone] Social History Tobacco Use Types Packs/Day Years [...] subacute rehab facility which is December, at [facility] in [place].Social work has identified there are still a [...] - ALLISON ALARCON MD / Voice ID: [id number] Doc ID: [id number] - ALLISON ALARCON MD /mh Voice ID: [id number] Doc ID: [id number] documented in this encounter Plan of Treatment Upcoming Encounters Date Type Department Care Team (Late st Contact Info) Description 10/01/2024 13:40 EDT Office Visit [facility] Endocrinology - [facility] [address] [place] [address] Wilder Zaidi, 62 [facility] [address] [place] [address] documented as of this encounter Visit Diagnoses Not on filedocumented in this encounter Care Teams Bill Peddler Relationship Specialty Start Date End Date Yan Demarco MD [address] [place] [address] PCP - General 08/22/09 02/20/10 Corin Skinner MD [address] [place] [phone] PCP - General 10/24/08 08/21/09 Akil Serrano MD [address] [place] [address] [address] [place] [address] PCP - General 02/21/10 04/16/11 documented as of this encounter
--- OUTSIDE RECORDS SUMMARY | 2024-08-03 13:57 | XMS_ITS | Encounter Summary ---
Author Organization [facility] Address [address] [place] [address] Care Team Providers Care Skiff Operator Name Role Phone Yan Demarco MD Primary Care Provider Corin Skinner MD Primary Care Provider Akil Serrano MD Primary Care Provider [phone] Encounter Details Date Type Department Care Team (Late st Contact Info) Description 11/21/2004 Before PRISM Converted Visit (Maple) [facility] - Maple conversion [address] [place], [place] [address] Raleigh Angelo MD [address] [phone] Social History Tobacco Use Types Packs/Day Years [...] HISTORY: The patient lives withhis mother in [place], [place]. His mother has endstage renal disease [...] 11/22/2004 15:57:53 - re Voice ID - [id number] Document ID - [id number] cc: KYLIE TREJO MD, REQUESTING PHYSICIAN ADE [...] 11/22/2004 15:57:53 - re Voice ID - [id number] Document ID - [id number] cc: ADE MALLOY MD, REFERRING PHYSICIAN TOO DIAZ MD, PRIMARY CARE PHYSICIAN KYLIE TREJO MD, REQUESTING PHYSICIAN documented in this encounter Plan of Treatment Upcoming Encounters Date Type Department Care Team (Late st Contact Info) Description 10/01/2024 13:40 EDT Office Visit [facility] Endocrinology - [address] [place] [phone] Wilder Zaidi, 62 [facility] [address] [place] [address] documented as of this encounter Visit Diagnoses Not on filedocumented in this encounter Care Teams Skiff Operator Relationship Specialty Start Date End Date Yan Demarco MD [address] [place] [phone] PCP - General 08/22/09 02/20/10 Corin Skinner MD [address] [place] [phone] PCP - General 10/24/08 08/21/09 Akil Serrano MD [address] [facility] [address] [place] [address] PCP - General 02/21/10 04/16/11 documented as of this encounter
--- OUTSIDE RECORDS SUMMARY | 2024-08-03 13:57 | XMS_ITS | Encounter Summary ---
Author Organization [facility] Address [address] [place] [address] Care Team Providers Care Watch Assembly Inspector Name Role Phone Yan Demarco MD Primary Care Provider [phone] Corin Skinner MD Primary Care Provider Akil Serrano MD Primary Care Provider [phone] Encounter Details Date Type Department Care Team (Late st Contact Info) Description 11/28/2004 Before PRISM Converted Visit (Maple) [facility] - Maple conversion [address] [place] [address] Allison Alarcon MD 0 [place] [address] Social History Tobacco Use Types Packs/Day Years [...] - ALLISON ALARCON MD /re Voice ID: [id number] Doc ID: [id number] agitation and wailing have to do with pain. Amantadine has been increased, but this is not resulting in a marked change in his overall status. Questionable whether it has increased his agitation. Neurontin is a reasonable medication to start and trial. PLAN: 1. Will start Neurontin 100 mg bid 2. Re-check BUN and sodium tomorrow. - ALLISON ALARCON MD /re Voice ID: [id number] Doc ID: [id number] documented in this encounter Plan of Treatment Upcoming Encounters Date Type Department Care Team (Late st Contact Info) Description 10/01/2024 13:40 EDT Office Visit [facility] Endocrinology - [facility] [address] [place] [address] Wilder Zaidi, DO 62 [facility] [address] [place] [address] documented as of this encounter Visit Diagnoses Not on filedocumented in this encounter Care Teams Watch Assembly Inspector Relationship Specialty Start Date End Date Yan Demarco MD [address] [place] [address] PCP - General 08/22/09 02/20/10 Corin Skinner MD [address] [place] [phone] PCP - General 10/24/08 08/21/09 Akil Serrano MD 74 [facility] 100 [place] [address] PCP - General 02/21/10 04/16/11 documented as of this encounter
--- OUTSIDE RECORDS SUMMARY | 2024-08-03 13:57 | XMS_ITS | Encounter Summary ---
Author Organization [facility] Address [address] [place] [address] Care Team Providers Care Yard Demurrage Clerk Name Role Phone Yan Demarco MD Primary Care Provider Corin Skinner MD Primary Care Provider Akil Serrano MD Primary Care Provider [phone] Encounter Details Date Type Department Care Team (Late st Contact Info) Description 11/25/2004 Before PRISM Converted Visit (Maple) [facility] - Maple conversion [address] [place] [address] Kylie Larson MD [address] [place] [phone] Social History Tobacco Use Types Packs/Day Years [...] - KYLIE LARSON MD /re Voice ID: [id number]: [id number] aspalpha -KYLIE LARSON MD /re Voice ID: [id number] Doc ID: [id number] documented in this encounter Plan of Treatment Upcoming Encounters Date Type Department Care Team (Late st Contact Info) Description 10/01/2024 13:40 EDT Office Visit [facility] Endocrinology - [facility] [address] [place] [address] Wilder Zaidi, 62 [facility] [address] [place] [address] documented as of this encounter Visit Diagnoses Not on filedocumented in this encounter Care Teams Yard Demurrage Clerk Relationship Specialty Start Date End Date Yan Demarco MD [address] [place] [address] PCP - General 08/22/09 02/20/10 Corin Skinner MD [address] [place] [phone] PCP - General 10/24/08 08/21/09 Akil Serrano MD 74 [facility] [place] [address] PCP - General 02/21/10 04/16/11 documented as of this encounter
--- OUTSIDE RECORDS SUMMARY | 2024-08-03 13:57 | XMS_ITS | Encounter Summary ---
Author Organization [facility] Address [address] [place] [address] Care Team Providers Care Registered Midwife Name Role Phone Yan Demarco MD Primary Care Provider Corin Skinner MD Primary Care Provider Akil Serrano MD Primary Care Provider [phone] Encounter Details Date Type Department Care Team (Late st Contact Info) Description 11/21/2004 Before PRISM Converted Visit (Maple) [facility] - Maple conversion [address] [place] [address] Kylie Larson MD [address] [place] [phone] Social History Tobacco Use Types Packs/Day Years [...] - KYLIE LARSON MD /re Voice ID: [id number] Doc ID: [id number] eurostimulation to try and wake him up a bit. I will review his medical course with Dr. Castañeda, who will be assisting in endocrine and electrolyte management. I will continue to keep in touch closely with Dr. Edwards, who will spearheading his endocrine management. Full evaluations will take place today to begin neuro rehab. - KYLIE LARSON MD /re Voice ID: [id number] Doc ID: [id number] documented in this encounter Plan of Treatment Upcoming Encounters Date Type Department Care Team (Late st Contact Info) Description 10/01/2024 13:40 EDT Office Visit [facility] Endocrinology - [facility] [address] [place] [address] Wilder Zaidi, DO 62 [facility] [address] [place] [address] documented as of this encounter Visit Diagnoses Not on filedocumented in this encounter Care Teams Registered Midwife Relationship Specialty Start Date End Date Yan Demarco MD [address] [place] [address] PCP - General 08/22/09 02/20/10 Corin Skinner MD [address] [place] [phone] PCP - General 10/24/08 08/21/09 Akil Serrano MD [address] [place] [address] 100 [place] [address] PCP - General 02/21/10 04/16/11 documented as of this encounter
--- OUTSIDE RECORDS SUMMARY | 2024-08-03 13:57 | XMS_ITS | Encounter Summary ---
Author Organization [facility] Address [address] [place] [address] Care Team Providers Care Seam Steamer Name Role Phone Yan Demarco MD Primary Care Provider Corin Skinner MD Primary Care Provider [phone] Akil Serrano MD Primary Care Provider [phone] Encounter Details Date Type Department Care Team (Late st Contact Info) Description 11/22/2004 Before PRISM Converted Visit (Maple) [facility] - Maple conversion [address] [place], [place] [address] Raleigh Angelo MD [address] [phone] Social History Tobacco Use Types Packs/Day Years [...] - RALEIGH ANGELO MD /lr Voice ID: [id number] Doc ID: [id number] stright ASSESSMENT AND PLAN: Continue program activities. Increase free water by 200 cc q.i.d. Continue monitoring of electrolytes and renal status. Continue DDAVP, hydrocortisone, and levothyroxine. - RALEIGH ANGELO MD /lr Voice ID: [id number] Doc ID: [id number] documented in this encounter Plan of Treatment Upcoming Encounters Date Type Department Care Team (Late st Contact Info) Description 10/01/2024 13:40 EDT Office Visit [facility] Endocrinology - [address] [phone] Wilder Zaidi, DO 62 [facility] [address] [place] [address] documented as of this encounter Visit Diagnoses Not on filedocumented in this encounter Care Teams Seam Steamer Relationship Specialty Start Date End Date Yan Demarco MD [address] [place] [address] PCP - General 08/22/09 02/20/10 Corin Skinner MD [address] [address] PCP - General 10/24/08 08/21/09 Akil Serrano MD 74 [facility],[address] [address] PCP - General 02/21/10 04/16/11 documented as of this encounter
--- OUTSIDE RECORDS SUMMARY | 2024-08-03 13:57 | XMS_ITS | Encounter Summary ---
Author Organization [facility] Address [address] [place] [address] Care Team Providers Care Radio Time Buyer Name Role Phone Yan Demarco MD Primary Care Provider Corin Skinner MD Primary Care Provider Akil Serrano MD Primary Care Provider [phone] Encounter Details Date Type Department Care Team (Late st Contact Info) Description 12/01/2004 Before PRISM Converted Visit (Maple) [facility] - Maple conversion [address] [place] [address] Allison Alarcon MD [address] [place] [phone] Social History Tobacco Use Types Packs/Day Years [...] - ALLISON ALARCON MD /re Voice ID: [id number] Doc ID: [id number] ry liquid anesthetic drops to the ear and see how he responds. BUN and sodium were not drawn today due to an error. As these have been relatively stable, we will wait until tomorrow. PLAN: 1. BUN and sodium tomorrow. 2. Auralgan drops to his right ear. - ALLISON ALARCON MD /re Voice ID: [id number] Doc ID: [id number] documented in this encounter Plan of Treatment Upcoming Encounters Date Type Department Care Team (Late st Contact Info) Description 10/01/2024 13:40 EDT Office Visit [facility] Endocrinology - [facility] [address] [place] [address] Wilder Zaidi, 62 [facility] [address] [place] [address] documented as of this encounter Visit Diagnoses Not on filedocumented in this encounter Care Teams Radio Time Buyer Relationship Specialty Start Date End Date Yan Demarco MD [address] [place] [address] PCP - General 08/22/09 02/20/10 Corin Skinner MD [address] [address] PCP - General 10/24/08 08/21/09 Akil Serrano MD 74 [facility] 100 [place], [place] [address] PCP - General 02/21/10 04/16/11 documented as of this encounter
--- OUTSIDE RECORDS SUMMARY | 2024-08-03 13:57 | XMS_ITS | Encounter Summary ---
Author Organization [facility] Address [address] [place] [address] Care Team Providers Care Air Support Operations Operator Name Role Phone Yan Demarco MD Primary Care Provider [phone] Corin Skinner MD Primary Care Provider Akil Serrano MD Primary Care Provider [phone] Encounter Details Date Type Department Care Team (Late st Contact Info) Description 11/24/2004 Before PRISM Converted Visit (Maple) [facility] - Maple conversion [address] [place] [address] Kylie Larson MD [address] [place] [phone] Social History Tobacco Use Types Packs/Day Years [...] - KYLIE LARSON MD /re Voice ID: [id number] Doc ID: [id number] - KYLIE LARSON MD /re Voice ID: [id number] Doc ID: [id number] documented in this encounter Plan of Treatment Upcoming Encounters Date Type Department Care Team (Late st Contact Info) Description 10/01/2024 13:40 EDT Office Visit [facility] Endocrinology - [address] [address] Wilder Zaidi, DO 62 [facility] [address] [place] [address] documented as of this encounter Visit Diagnoses Not on filedocumented in this encounter Care Teams Air Support Operations Operator Relationship Specialty Start Date End Date Yan Demarco MD [address] [place] [address] PCP - General 08/22/09 02/20/10 Corin Skinner MD [address] [place] [address] PCP - General 10/24/08 08/21/09 Akil Serrano MD [address] [address] PCP - General 02/21/10 04/16/11 documented as of this encounter
--- OUTSIDE RECORDS SUMMARY | 2024-08-03 13:57 | XMS_ITS | Encounter Summary ---
Author Organization [facility] Address [address] [place] [address] Care Team Providers Care Guest Service Host Name Role Phone Yan Demarco MD Primary Care Provider Corin Skinner MD Primary Care Provider Akil Serrano MD Primary Care Provider [phone] Encounter Details Date Type Department Care Team (Late st Contact Info) Description 11/27/2004 Before PRISM Converted Visit (Maple) [facility] - Maple conversion [address] [place] [address] Allison Alarcon MD 0 [place] [phone] Social History Tobacco Use Types Packs/Day Years [...] working on being able to establish [facility]. Team supports, at this point, that we are probably looking at making that transition towards the end of next week on December 07. Teams concerns reviewed in terms of moms interaction and participation and how to work with her around this. Also additional extended discussion with INK MAKER regarding best modes of communication and management [...] - ALLISON ALARCON MD /lr Voice ID: [id number] Doc ID: [id number] Continues to be appropriate for acute inpatient rehab. 2. We will trial an increase of amantadine. 3. Continue present water intake. 4. Will follow up with Dr. Edwards regarding TSH results. (Total time 45 minutes, greater than 50% direct discussion and review with mom and care coordination with team on aboveissues.) - ALLISON ALARCON MD /lr Voice ID: [id number] Doc ID: [id number] documented in this encounter Plan of Treatment Upcoming Encounters Date Type Department Care Team (Late st Contact Info) Description 10/01/2024 13:40 EDT Office Visit [facility] Endocrinology - [facility] [address] [place] [address] Dejuan Wilderritchie Valencia, 62 [facility] [address] [place] [address] documented as of this encounter Visit Diagnoses Not on filedocumented in this encounter Care Teams Guest Service Host Relationship Specialty Start Date End Date Yan Demarco MD [address] [place] [address] PCP - General 08/22/09 02/20/10 Corin Skinner MD [address] [place] [phone] PCP - General 10/24/08 08/21/09 Akil Serrano MD 74 [facility] [address] [place] [address] PCP - General 02/21/10 04/16/11 documented as of this encounter
--- OUTSIDE RECORDS SUMMARY | 2024-08-03 13:59 | XMS_ITS | Encounter Summary ---
Author Organization [facility] Address [address] [place] [address] Care Team Providers Care Powder Carrier Name Role Phone Unavailable Primary Care Provider Unavailabl e Encounter Details Date Type Department Care Team (Late st Contact Info) Description 10/05/2004 6:16 EST - 11/20/2004 11:59 EDT Hospital Encounter [facility] [address] [place], [place] [id number] Jodi Parr MD [address] [facility], [address] [phone] Hilton Álvarez MD [address] [place] [address] [phone] Discharge Disposition: [facility] Social History [...] immediate postoperative course. He was transferred to [address] on November 07, 2004. HOSPITAL COURSE: [...] of DDAVP (desmopressin) q.8h. at 0600, 1400 [id number] via his G-tube. His sodiums originally were [...] Jodi Parr MD 02/20/2005 07:31 raj Gonzalez, [facility], [facility] Parr MD Dictated by: Marvin Gonzalez MD Jodi Parr MD - Marvin Gonzalez MD - chelle Job ID: [id number] Document ID: [id number] Re-created from ExText 01/24/2005 cc: MD Too [...] immediate postoperative course. He was transferred to [address] [facility] on November 07, 2004. HOSPITAL COURSE: [...] of DDAVP (desmopressin) q.8h. at 0600, 1400 [id number] via his G-tube. His sodiums originally were [...] Marvin Gonzalez MD - chelle Job ID: [id number] Document ID: [id number] Re-created in CoreDial 01/29/2005 cc: MD Marvin Ross MD Christa M Zehle, MD Paul James Zimakas, MD documented in this encounter Discharge Disposition Disposition Code Departure Means Destination [facility] documented in this encounter Plan of Treatment Upcoming Encounters Date Type Department Care Team (Late st Contact Info) Description 10/01/2024 13:40 EDT Office Visit [facility] Endocrinology [place] [address] [place], [place] [id number] Dejuan Wilder Ayalaip, DO [address] [place] [address] documented as of this encounter [...] Result Performing Organization Address [facility] de Phone Number [facility] [address] [place] [address] * SODIUM (11/19/2004 20:05 EDT) Sodium 145 136 - 145 mEq/L [facility] 11/19/2004 20:0 5 EDT 11/19/2004 20:29 EDT us Jodi Parr MD CHEMISTRY & BLOOD GAS ORDERABLE S Final Result Performing Organization Address [facility] Phone Number [facility] [address] [place] [address] * (ABNORMAL) SODIUM (11/19/2004 8:00 EDT) Sodium 147(H) 136 - 145 mEq/L [facility] Comment:Heparinized plasma. 11/19/2004 8:00 EDT 11/19/2004 8:16 EDT us Jodi Parr MD CHEMISTRY & BLOOD GAS ORDERABLE S Final Result Performing Organization Address [facility] de Phone Number [facility] [address] [place] [address] * SODIUM (11/18/2004 20:00 EDT) Sodium 144 136 - 145 mEq/L [facility] 11/18/2004 20:0 0 EDT 11/18/2004 20:41 EDT us Jodi Parr MD CHEMISTRY & BLOOD GAS ORDERABLE S Final Result Performing Organization Address [facility]/ZIP Co de Phone Number [facility] [address] [place] [address] * (ABNORMAL) SODIUM (11/18/2004 14:00 EDT) Sodium 147(H) 136 - 145 mEq/L [facility] 11/18/2004 14:0 0 EDT 11/18/2004 14:38 EDT us Jodi Parr MD CHEMISTRY & BLOOD GAS ORDERABLE S Final Result Performing Organization Address [facility] Co de Phone Number [facility] [address] [place] [address] * (ABNORMAL) SODIUM (11/18/2004 8:00 EDT) Sodium 146(H) 136 - 145 mEq/L [facility] 11/18/2004 8:00 EDT 11/18/2004 8:24 EDT us Jodi Parr MD CHEMISTRY & BLOOD GAS ORDERABLE S Final Result Performing Organization Address [facility] de Phone Number [facility] [address] [place] [address] * SODIUM (11/17/2004 20:15 EDT) Sodium 141 136 - 145 mEq/L [facility] 11/17/2004 20:1 5 EDT 11/17/2004 20:46 EDT us Jodi Parr MD CHEMISTRY & BLOOD GAS ORDERABLE S Final Result Performing Organization Address [facility] Co de Phone Number [facility] [address] [place] [address] * SODIUM (11/17/2004 12:00 EDT) Sodium 142 136 - 145 mEq/L [facility] Comment:Heparinized plasma. 11/17/2004 12:0 0 EDT 11/17/2004 12:37 EDT us Jodi Parr MD CHEMISTRY & BLOOD GAS ORDERABLE S Final Result [facility] [address] [place] [address] * SODIUM (11/17/2004 4:00 EDT) Sodium 140 136 - 145 mEq/L [facility] 11/17/2004 4:00 EDT 11/17/2004 4:01 EDT us Jodi Parr MD CHEMISTRY & BLOOD GAS ORDERABLE S Final Result [facility] [address] [place] [address] * SODIUM (11/16/2004 19:45 EDT) Sodium 141 136 - 145 mEq/L [facility] 11/16/2004 19:4 5 EDT 11/16/2004 20:20 EDT us Jodi Parr MD CHEMISTRY & BLOOD GAS ORDERABLE S Final Result Performing Organization Address City/[facility] Co de Phone Number [facility] [address] [place] [address] * SODIUM (11/16/2004 11:30 EDT) Sodium 142 136 - 145 mEq/L [facility] 11/16/2004 11:3 0 EDT 11/16/2004 12:18 EDT us Jodi Parr MD CHEMISTRY & BLOOD GAS ORDERABLE S Final Result [facility] [address] [place] [address] * SODIUM (11/16/2004 3:45 EDT) Sodium 136 136 - 145 mEq/L [facility] 11/16/2004 3:45 EDT 11/16/2004 3:52 EDT us Jodi Parr MD CHEMISTRY & BLOOD GAS ORDERABLE S Final Result [facility] [address] [place] [address] * SODIUM (11/15/2004 19:45 EDT) Sodium 139 136 - 145 mEq/L [facility] 11/15/2004 19:4 5 EDT 11/15/2004 20:00 EDT us Jodi Parr MD CHEMISTRY & BLOOD GAS ORDERABLE S Final Result Performing Organization Address City/[facility]/ZIP Co de Phone Number [facility] [address] [place] [address] * SODIUM (11/15/2004 12:00 EDT) Sodium 141 136 - 145 mEq/L [facility] 11/15/2004 12:0 0 EDT 11/15/2004 12:42 EDT us Jodi Parr MD CHEMISTRY & BLOOD GAS ORDERABLE S Final Result Performing Organization Address [facility] de Phone Number [facility] [address] [place] [address] * SODIUM (11/15/2004 4:45 EDT) Sodium 141 136 - 145 mEq/L [facility] 11/15/2004 4:45 EDT 11/15/2004 5:07 EDT us Jodi Parr MD CHEMISTRY & BLOOD GAS ORDERABLE S Final Result Performing Organization Address City/[facility]/ZIP Co de Phone Number [facility] [address] [place] [address] * SODIUM (11/14/2004 20:00 EDT) Sodium 144 136 - 145 mEq/L [facility] 11/14/2004 20:0 0 EDT 11/14/2004 20:20 EDT us Jodi Parr MD CHEMISTRY & BLOOD GAS ORDERABLE S Final Result Performing Organization Address [facility]/State/ZIP Co de Phone Number [facility] [address] [place] [address] * SODIUM (11/14/2004 11:35 EDT) Sodium 141 136 - 145 mEq/L [facility] 11/14/2004 11:3 5 EDT 11/14/2004 12:32 EDT us Jodi Parr MD CHEMISTRY & BLOOD GAS ORDERABLE S Final Result Performing Organization Address [facility] de Phone Number [facility] [address] [place] [address] * SODIUM (11/14/2004 4:00 EDT) Sodium 140 136 - 145 mEq/L [facility] Comment:Heparinized plasma. 11/14/2004 4:00 EDT 11/14/2004 4:32 EDT us Jodi Parr MD CHEMISTRY & BLOOD GAS ORDERABLE S Final Result Performing Organization Address [facility] de Phone Number [facility] [address] [place] [address] * SODIUM (11/13/2004 20:00 EDT) Sodium 142 136 - 145 mEq/L [facility] 11/13/2004 20:0 0 EDT 11/13/2004 20:59 EDT us Jodi Parr MD CHEMISTRY & BLOOD GAS ORDERABLE S Final Result Performing Organization Address [facility] de Phone Number [facility] [address] [place] [address] * SODIUM (11/13/2004 20:00 EDT) Sodium 136 - 145 mEq/L [facility] 11/13/2004 20:0 0 EDT 11/20/2004 12:48 EDT us Jodi Parr MD CHEMISTRY & BLOOD GAS ORDERABLE S Final Result [facility] [address] [place] [address] * SODIUM (11/13/2004 11:55 EDT) Sodium 141 136 - 145 mEq/L [facility] 11/13/2004 11:5 5 EDT 11/13/2004 12:31 EDT us Jodi Parr MD CHEMISTRY & BLOOD GAS ORDERABLE S Final Result Performing Organization Address [facility] Co de Phone Number [facility] [address] [place] [address] * SODIUM (11/13/2004 4:02 EDT) Sodium 141 136 - 145 mEq/L [facility] 11/13/2004 4:02 EDT 11/13/2004 4:03 EDT us Jodi Parr MD CHEMISTRY & BLOOD GAS ORDERABLE S Final Result Performing Organization Address [facility] Co de Phone Number [facility] [address] [place] [address] * SODIUM (11/12/2004 19:50 EDT) Sodium 140 136 - 145 mEq/L [facility] 11/12/2004 19:5 0 EDT 11/12/2004 21:02 EDT us Jodi Parr MD CHEMISTRY & BLOOD GAS ORDERABLE S Final Result Performing Organization Address [facility] Co de Phone Number [facility] [address] [place] [address] * PHOSPHORUS (11/12/2004 11:55 EDT) Phosphorus 4.9 2.9 - 5.4 mg/dl [facility] Comment:Heparinized plasma. 11/12/2004 11:5 5 EDT 11/12/2004 12:09 EDT Jodi Parr MD CHEMISTRY & BLOOD GAS ORDERABLE S Final Result Performing Organization Address [facility] Co de Phone Number [facility] [address] [place] [address] * PREALBUMIN (11/12/2004 11:55 EDT) Prealbumin 38 mg/dl [facility] 11/12/2004 11:5 5 EDT 11/12/2004 12:09 EDT us Jodi Parr MD CHEMISTRY & BLOOD GAS ORDERABLE S Final Result Performing Organization Address [facility] Co de Phone Number [facility] [address] [place] [address] * SODIUM (11/12/2004 11:55 EDT) Sodium 138 136 - 145 mEq/L [facility] Comment:Heparinized plasma. 11/12/2004 11:5 5 EDT 11/12/2004 12:09 EDT us Jodi Parr MD CHEMISTRY & BLOOD GAS ORDERABLE S Final Result Performing Organization Address [facility] de Phone Number [facility] [address] [place] [address] * MAGNESIUM (11/12/2004 11:55 EDT) Magnesium 2.1 1.7 - 2.8 mg/dl [facility] Comment:Heparinized plasma. 11/12/2004 11:5 5 EDT 11/12/2004 12:09 EDT us Jodi Parr MD CHEMISTRY & BLOOD GAS ORDERABLE S Final Result Performing Organization Address [facility] Co de Phone Number [facility] [address] [place] [address] * PHOSPHORUS (11/12/2004 4:00 EDT) Phosphorus 4.9 2.9 - 5.4 mg/dl [facility] 11/12/2004 4:00 EDT 11/12/2004 4:07 EDT us Jodi Parr MD CHEMISTRY & BLOOD GAS ORDERABLE S Final Result Performing Organization Address [facility] Co de Phone Number [facility] [address] [place] [address] * SODIUM (11/12/2004 4:00 EDT) Sodium 136 136 - 145 mEq/L [facility] 11/12/2004 4:00 EDT 11/12/2004 4:07 EDT us Jodi Parr MD CHEMISTRY & BLOOD GAS ORDERABLE S Final Result Performing Organization Address [facility] de Phone Number [facility] [address] [place] [address] * MAGNESIUM (11/12/2004 4:00 EDT) Magnesium 2.0 1.7 - 2.8 mg/dl [facility] 11/12/2004 4:00 EDT 11/12/2004 4:07 EDT us Jodi Parr MD CHEMISTRY & BLOOD GAS ORDERABLE S Final Result Performing Organization Address [facility] Co de Phone Number [facility] [address] [place] [address] * T4 FREE (11/12/2004 4:00 EDT) Free T4 0.8 0.8 - 1.8 ng/dl [facility] 11/12/2004 4:00 EDT 11/12/2004 4:07 EDT Jodi Parr MD CHEMISTRY & BLOOD GAS ORDERABLE S Final Result Performing Organization Address City/[facility]/ZIP Co de Phone Number [facility] [address] [place] [address] * CALCIUM (11/12/2004 4:00 EDT) Calcium 9.3 8.5 - 10.5 mg/dl [facility] Calculated Calcium 9.6 8.5 - 10.5 mg/dl [facility] 11/12/2004 4:00 EDT 11/12/2004 4:07 EDT us Jodi Parr MD CHEMISTRY & BLOOD GAS ORDERABLE S Final Result Performing Organization Address [facility] Co de Phone Number [facility] [address] [place] [address] * ALBUMIN (11/12/2004 4:00 EDT) Albumin 4.1 3.0 - 5.5 g/dl [facility] 11/12/2004 4:00 EDT 11/12/2004 4:07 EDT us Jodi Parr MD CHEMISTRY & BLOOD GAS ORDERABLE S Final Result Performing Organization Address [facility] de Phone Number [facility] [address] [place] [address] * SODIUM (11/11/2004 20:08 EDT) Sodium 137 136 - 145 mEq/L [facility] 11/11/2004 20:0 8 EDT 11/11/2004 20:13 EDT us Jodi Parr MD CHEMISTRY & BLOOD GAS ORDERABLE S Final Result Performing Organization Address [facility] Co de Phone Number [facility] [address] [place] [address] * SODIUM (11/11/2004 12:00 EDT) Sodium 137 136 - 145 mEq/L [facility] 11/11/2004 12:0 0 EDT 11/11/2004 12:28 EDT us Jodi Parr MD CHEMISTRY & BLOOD GAS ORDERABLE S Final Result Performing Organization Address [facility]/ZIP Co de Phone Number [facility] [address] [place] [address] * (ABNORMAL) SODIUM (11/11/2004 4:00 EDT) Sodium 132(L) 136 - 145 mEq/L [facility] 11/11/2004 4:00 EDT 11/11/2004 4:08 EDT us Jodi Parr MD CHEMISTRY & BLOOD GAS ORDERABLE S Final Result Performing Organization Address [facility] de Phone Number [facility] [address] [place] [address] * (ABNORMAL) SODIUM (11/10/2004 20:45 EDT) Sodium 132(L) 136 - 145 mEq/L [facility] 11/10/2004 20:4 5 EDT 11/10/2004 20:54 EDT us Jodi Parr MD CHEMISTRY & BLOOD GAS ORDERABLE S Final Result Performing Organization Address [facility] de Phone Number [facility] [address] [place] [address] * SODIUM (11/10/2004 11:55 EDT) Sodium 137 136 - 145 mEq/L [facility] 11/10/2004 11:5 5 EDT 11/10/2004 12:53 EDT us Jodi Parr MD CHEMISTRY & BLOOD GAS ORDERABLE S Final Result Performing Organization Address [facility] de Phone Number [facility] [address] [place] [address] * (ABNORMAL) SODIUM (11/10/2004 3:45 EDT) Sodium 132(L) 136 - 145 mEq/L [facility] 11/10/2004 3:45 EDT 11/10/2004 4:11 EDT us Jodi Parr MD CHEMISTRY & BLOOD GAS ORDERABLE S Final Result Performing Organization Address [facility] de Phone Number [facility] [address] [place] [address] * SODIUM (11/09/2004 20:00 EDT) Sodium 136 136 - 145 mEq/L [facility] Comment:Heparinized plasma. 11/09/2004 20:0 0 EDT 11/09/2004 20:25 EDT us Hilton Álvarez MD CHEMISTRY & BLOOD GAS ORDE RABLES Final Result Performing Organization Address [facility] Phone Number [facility] [address] [place] [address] * SODIUM (11/09/2004 13:20 EDT) Sodium 136 136 - 145 mEq/L [facility] Comment:Heparinized plasma. 11/09/2004 13:2 0 EDT 11/09/2004 13:39 EDT us Jodi Parr MD CHEMISTRY & BLOOD GAS ORDERABLE S Final Result Performing Organization Address [facility] de Phone Number [facility] [address] [place] [address] * (ABNORMAL) SODIUM (11/09/2004 4:20 EDT) Sodium 132(L) 136 - 145 mEq/L [facility] Comment:Heparinized plasma. 11/09/2004 4:20 EDT 11/09/2004 5:00 EDT us Hilton Álvarez MD CHEMISTRY & BLOOD GAS ORDE RABLES Final Result [facility] [address] [place] [address] * (ABNORMAL) SODIUM (11/08/2004 19:55 EDT) Sodium 133(L) 136 - 145 mEq/L [facility] 11/08/2004 19:5 5 EDT 11/08/2004 20:26 EDT us Hilton Álvarez MD CHEMISTRY & BLOOD GAS HERMES HANNON Final Result [facility] [address] [place] [address] * (ABNORMAL) SODIUM (11/08/2004 17:00 EDT) Sodium 133(L) 136 - 145 mEq/L [facility] 11/08/2004 17:0 0 EDT 11/08/2004 17:23 EDT us Jodi Parr MD CHEMISTRY & BLOOD GAS ORDERABLE S Final Result [facility] [address] [place] [address] * (ABNORMAL) SODIUM (11/08/2004 12:15 EDT) Sodium 131(L) 136 - 145 mEq/L [facility] 11/08/2004 12:1 5 EDT 11/08/2004 13:58 EDT us Hilton Álvarez MD CHEMISTRY & BLOOD GAS HERMES HANNON Final Result [facility] [address] [place] [address] * (ABNORMAL) SODIUM (11/08/2004 4:00 EDT) Sodium 135(L) 136 - 145 mEq/L [facility] 11/08/2004 4:00 EDT 11/08/2004 5:19 EDT us Hilton Álvarez MD CHEMISTRY & BLOOD GAS ORDE RABLES Final Result Performing Organization Address [facility]/ZIP Co de Phone Number [facility] [address] [place] [address] * (ABNORMAL) SODIUM (11/07/2004 20:29 EDT) Sodium 135(L) 136 - 145 mEq/L [facility] Comment:Heparinized plasma. 11/07/2004 20:2 9 EDT 11/07/2004 20:30 EDT us Hilton Álvarez MD CHEMISTRY & BLOOD GAS ORDE RABLES Final Result Performing Organization Address [facility] Co de Phone Number [facility] [address] [place] [address] * (ABNORMAL) SODIUM (11/07/2004 12:24 EDT) Sodium 133(L) 136 - 145 mEq/L [facility] Comment:Heparinized plasma. 11/07/2004 12:2 4 EDT 11/07/2004 12:24 EDT us Hilton Álvarez MD CHEMISTRY & BLOOD GAS ORDE RABLES Final Result Performing Organization Address [facility] Co de Phone Number [facility] [address] [place] [address] * (ABNORMAL) SODIUM (11/07/2004 6:25 EDT) Sodium 133(L) 136 - 145 mEq/L [facility] 11/07/2004 6:25 EDT 11/07/2004 6:26 EDT us Hilton Álvarez MD CHEMISTRY & BLOOD GAS ORDE RABLES Final Result Performing Organization Address [facility]/ZIP Co de Phone Number [facility] [address] [place] [address] * SODIUM (11/06/2004 22:00 EDT) Sodium 136 136 - 145 mEq/L [facility] 11/06/2004 22:0 0 EDT 11/06/2004 22:07 EDT Hilton Álvarez MD CHEMISTRY & BLOOD GAS ORDE RABLES Final Result Performing Organization Address [facility] Co de Phone Number [facility] [address] [place] [address] * SODIUM (11/06/2004 13:58 EDT) Sodium 138 136 - 145 mEq/L [facility] 11/06/2004 13:5 8 EDT 11/06/2004 13:58 EDT Hilton Álvarez MD CHEMISTRY & BLOOD GAS ORDE RABLES Final Result Performing Organization Address [facility] de Phone Number [facility] [address] [place] [address] * ELECTROLYTES (11/06/2004 9:56 EDT) Sodium 137 [...] Result Performing Organization Address [facility] de Phone Number [facility] [address] [place] [address] * ELECTROLYTES (11/06/2004 3:22 EDT) Sodium 136 [...] Result Performing Organization Address [facility] Co de Phone Number [facility] [address] [place] [address] * ELECTROLYTES (11/05/2004 20:50 EDT) Pathologist [facility] Sodium 137 136 - 145 mEq/L [facility] Potassium 4.2 3.6 - 5.2 mEq/L [facility] Chloride 101 96 - 110 mEq/L [facility] CO2 30 24 - 32 mEq/L [facility] 11/05/2004 20:5 0 EDT 11/05/2004 20:50 EDT Hilton Álvarez MD CHEMISTRY & BLOOD GAS [facility] Final Result Performing Organization Address [facility] de Phone Number [facility] [address] [place] [address] * CT HEAD W/WO CONTRAST (11/05/2004 19:02 [...] ORDEmerald HANNON Final Result Performing Organization Address [facility] Co de Phone Number [facility] [address] [place] [address] * SODIUM (11/05/2004 4:34 EDT) Sodium 136 - 145 mEq/L [facility] 11/05/2004 4:34 EDT 11/05/2004 4:34 EDT Hilton Álvarez MD CHEMISTRY & BLOOD GAS ORDEmerald HANNON Final Result Performing Organization Address City/[facility] Co de Phone Number [facility] [address] [place] [address] * ELECTROLYTES (11/05/2004 4:34 EDT) Sodium 142 136 - 145 mEq/L [facility] Potassium 4.0 3.6 - 5.2 mEq/L [facility] Chloride 106 96 - 110 mEq/L [facility] CO2 29 24 - 32 mEq/L [facility] 11/05/2004 4:34 EDT 11/05/2004 4:34 EDT Hilton Álvarez MD CHEMISTRY & BLOOD GAS ORDE RIDDHI Final Result Performing Organization Address [facility] de Phone Number [facility] [address] [place] [address] * (ABNORMAL) T4 FREE (11/05/2004 4:34 EDT) Free T4 0.6(L) 0.8 - 1.8 ng/dl [facility] 11/05/2004 4:34 EDT 11/05/2004 4:34 EDT Hilton Álvarez MD CHEMISTRY & BLOOD GAS ORDEmerald HANNON Final Result Performing Organization Address [facility] de Phone Number [facility] [address] [place] [address] * (ABNORMAL) ELECTROLYTES (11/04/2004 22:06 EDT) Sodium [...] Result Performing Organization Address [facility]/State/ZIP Co de Phone Number [facility] [address] [place] [address] * ELECTROLYTES (11/04/2004 14:25 EDT) Sodium 143 [...] Result Performing Organization Address [facility] de Phone Number [facility] [address] [place] [address] * SODIUM (11/04/2004 8:25 EDT) Sodium 142 136 - 145 mEq/L [facility] 11/04/2004 8:25 EDT 11/04/2004 8:38 EDT Hilton Álvarez MD CHEMISTRY & BLOOD GAS ORDE RABLES Final Result Performing Organization Address [facility] de Phone Number [facility] [address] [place] [address] * ELECTROLYTES (11/04/2004 4:15 EDT) Sodium 143 [...] Result Performing Organization Address [facility] Co de Phone Number [facility] [address] [place] [address] * SODIUM (11/04/2004 0:31 EDT) Sodium 144 136 - 145 mEq/L [facility] 11/04/2004 0:31 EDT 11/04/2004 0:31 EDT Hilton Álvarez MD CHEMISTRY & BLOOD GAS ORDE RABLES Final Result Performing Organization Address [facility] Co de Phone Number [facility] [address] [place] [address] * ELECTROLYTES (11/03/2004 20:16 EDT) Sodium 144 [...] Result Performing Organization Address [facility] Co de Phone Number [facility] [address] [place] [address] * SODIUM (11/03/2004 16:15 EDT) Sodium 142 136 - 145 mEq/L [facility] 11/03/2004 16:1 5 EDT 11/03/2004 16:30 EDT us Hilton Álvarez MD CHEMISTRY & BLOOD GAS ORDE RABLES Final Result Performing Organization Address City/[facility] Co de Phone Number [facility] [address] [place] [address] * ELECTROLYTES (11/03/2004 12:21 EDT) Sodium 144 136 - 145 mEq/L [facility] Potassium 3.9 3.6 - 5.2 mEq/L [facility] Chloride 106 96 - 110 mEq/L [facility] CO2 28 24 - 32 mEq/L [facility] 11/03/2004 12:2 1 EDT 11/03/2004 12:21 EDT Hilton Álvarez MD CHEMISTRY & BLOOD GAS ORDE RABLES Final Result Performing Organization Address [facility] de Phone Number [facility] [address] [place] [address] * SODIUM (11/03/2004 9:30 EDT) Sodium 145 136 - 145 mEq/L [facility] Comment:Heparinized plasma. 11/03/2004 9:30 EDT 11/03/2004 9:32 EDT Hilton Álvarez MD CHEMISTRY & BLOOD GAS ORDE RABLES Final Result Performing Organization Address [facility] Phone Number [facility] [address] [place] [address] * ELECTROLYTES (11/03/2004 3:00 EDT) Sodium 142 [...] ORDE RABLES Final Result Performing Organization Address [facility] de Phone Number [facility] [address] [place] [address] * SODIUM (11/03/2004 0:14 EDT) Sodium 144 136 - 145 mEq/L [facility] Comment:Heparinized plasma. 11/03/2004 0:14 EDT 11/03/2004 0:14 EDT Hilton Álvarez MD CHEMISTRY & BLOOD GAS ORDE RABLES Final Result Performing Organization Address [facility] de Phone Number [facility] [address] [place] [address] * (ABNORMAL) ELECTROLYTES (11/02/2004 20:02 EDT) Sodium 146(H) 136 - 145 mEq/L [facility] Potassium 4.1 3.6 - 5.2 mEq/L [facility] Chloride 107 96 - 110 mEq/L [facility] CO2 30 24 - 32 mEq/L [facility] 11/02/2004 20:0 2 EDT 11/02/2004 20:02 EDT Hilton Álvarez MD CHEMISTRY & BLOOD GAS ORDE RIDDHI Final Result Performing Organization Address [facility] de Phone Number [facility] [address] [place] [address] * SODIUM (11/02/2004 16:34 EDT) Sodium 145 136 - 145 mEq/L [facility] 11/02/2004 16:3 4 EDT 11/02/2004 16:34 EDT Hilton Álvarez MD CHEMISTRY & BLOOD GAS ORDE RABLES Final Result Performing Organization Address [facility] de Phone Number [facility] [address] [place] [address] * (ABNORMAL) ELECTROLYTES (11/02/2004 12:32 EDT) Sodium [...] ORDEmerald HANNON Final Result Performing Organization Address [facility] de Phone Number [facility] [address] [place] [address] * SODIUM (11/02/2004 8:39 EDT) Pathologist [facility] Sodium 141 136 - 145 mEq/L [facility] Comment:Heparinized plasma. 11/02/2004 8:39 EDT 11/02/2004 8:39 EDT Hilton Álvarez MD CHEMISTRY & BLOOD GAS ORDE RIDDHI Final Result Performing Organization Address [facility] de Phone Number [facility] [address] [place] [address] * (ABNORMAL) HEMAGRAM (11/02/2004 8:39 EDT) WBC [...] Final Result Performing Organization Address [facility] de Phone Number [facility] [address] [place] [address] * BACTERIAL CULTURE, BLOOD (11/02/2004 5:45 EDT) Specimen Description Blood PICC Line [facility] Result No growth [facility] Report Status Final [id number] [facility] 11/02/2004 5:45 EDT 11/02/2004 5:45 EDT Hilton Álvarez MD MICROBIOLOGY - GENERAL ORD ERABLES Final Result [facility] [address] [place] [address] * BACTERIAL CULTURE, URINE (11/02/2004 5:43 EDT) Specimen Description Urine [facility] Result Greater than 100,000 CFU/ml STAPHYLOCOCCU S COAGULASE POSITIVE (STAPHYLOCOCC US AUREUS) [facility] Report Status Final [id number] [facility] 11/02/2004 5:43 EDT 11/02/2004 [...] ORD ERABLES Final Result Performing Organization Address City/[facility]/ZIP Co de Phone Number [facility] [address] [place] [address] * (ABNORMAL) UA WITH MICROSCOPIC (11/02/2004 5:43 EDT) Color, UA Yellow [facility] Clarity, UA Cloudy [facility] Glucose, UA Norm NORM [facility] Bilirubin, UA Neg NEG TRUE [facility] Ketones, UA Neg NEG [facility] Specific [place], Urine 1.015 1.005 - 1.02 [facility] [...] ORDERABLES Jacquie l Result Performing Organization Address City/[facility]/ZIP Co de Phone Number [facility] [address] [place] [address] * CULTURE IF UA POSITIVE (11/02/2004 5:43 EDT) Culture if Indicated Culture indicated by urinalysis results. [facility] 11/02/2004 5:43 EDT 11/02/2004 5:43 EDT Hilton Álvarez MD MICROBIOLOGY - GENERAL ORD ERABLES Final Result Performing Organization Address City/[facility] Co de Phone Number [facility] [address] [place] [address] * ELECTROLYTES (11/02/2004 4:10 EDT) Sodium 143 [...] Result Performing Organization Address [facility] Co de Phone Number [facility] [address] [place] [address] * SODIUM (11/02/2004 0:09 EDT) Sodium 143 136 - 145 mEq/L [facility] 11/02/2004 0:09 EDT 11/02/2004 0:09 EDT Hilton Álvarez MD CHEMISTRY & BLOOD GAS ORDE RABLES Final Result Performing Organization Address [facility] Co de Phone Number [facility] [address] [place] [address] * ELECTROLYTES (11/01/2004 20:00 EDT) Sodium 142 [...] Result Performing Organization Address [facility] Co de Phone Number [facility] [address] [place] [address] * SODIUM (11/01/2004 16:19 EDT) Sodium 142 136 - 145 mEq/L [facility] 11/01/2004 16:1 9 EDT 11/01/2004 16:19 EDT Hilton Álvarez MD CHEMISTRY & BLOOD GAS ORDE RABLES Final Result Performing Organization Address [facility] de Phone Number [facility] [address] [place] [address] * SODIUM (11/01/2004 12:28 EDT) Sodium 143 136 - 145 mEq/L [facility] Comment:Heparinized plasma. 11/01/2004 12:2 8 EDT 11/01/2004 12:28 EDT Hilton Álvarez MD CHEMISTRY & BLOOD GAS ORDE RABLES Final Result Performing Organization Address [facility] de Phone Number [facility] [address] [place] [address] * POTASSIUM (11/01/2004 12:28 EDT) Potassium 4.6 3.6 - 5.2 mEq/L [facility] Comment:Heparinized plasma. 11/01/2004 12:2 8 EDT 11/01/2004 12:28 EDT us Hilton Álvarez MD CHEMISTRY & BLOOD GAS ORDE RABLES Final Result Performing Organization Address [facility] Co de Phone Number [facility] [address] [place] [address] * CO2 (11/01/2004 12:28 EDT) CO2 26 24 - 32 mEq/L [facility] Comment:Heparinized plasma. 11/01/2004 12:2 8 EDT 11/01/2004 12:28 EDT us Hilton Álvarez MD CHEMISTRY & BLOOD GAS ORDE RABLES Final Result Performing Organization Address [facility] Co de Phone Number [facility] [address] [place] [address] * CHLORIDE (11/01/2004 12:28 EDT) Chloride 107 96 - 110 mEq/L [facility] Comment:Heparinized plasma. 11/01/2004 12:2 8 EDT 11/01/2004 12:28 EDT us Hilton Álvarez MD CHEMISTRY & BLOOD GAS ORDE RABLES Final Result Performing Organization Address [facility] de Phone Number [facility] [address] [place] [address] * TESTS ADDED BY PHONE (11/01/2004 12:28 EDT) Tests to be added STAT K,CL,CO2 [facility] 11/01/2004 12:2 8 EDT 11/01/2004 12:28 EDT us Hilton Álvarez MD CHEMISTRY & BLOOD GAS ORDE RABLES Final Result Performing Organization Address [facility] de Phone Number [facility] [address] [place] [address] * SODIUM (11/01/2004 8:26 EDT) Sodium 143 136 - 145 mEq/L [facility] Comment:Heparinized plasma. 11/01/2004 8:26 EDT 11/01/2004 8:26 EDT us Hilton Álvarez MD CHEMISTRY & BLOOD GAS ORDE RABLES Final Result Performing Organization Address [facility] de Phone Number [facility] [address] [place] [address] * PHENYTOIN (11/01/2004 4:18 EDT) Phenytoin 11.1 [...] ORDE RABLES Final Result Performing Organization Address [facility] Phone Number [facility] [address] [place] [address] * ELECTROLYTES (11/01/2004 4:18 EDT) Sodium 141 [...] Final Result Performing Organization Address [facility] Co de Phone Number [facility] [address] [place] [address] * SODIUM (11/01/2004 2:27 EDT) Sodium 145 136 - 145 mEq/L [facility] Comment:Heparinized plasma. 11/01/2004 2:27 EDT 11/01/2004 2:27 EDT us Hilton Álvarez MD CHEMISTRY & BLOOD GAS ORDE RABLES Final Result Performing Organization Address [facility] de Phone Number [facility] [address] [place] [address] * ELECTROLYTES (11/01/2004 0:10 EDT) Sodium 143 [...] ORDE RABLES Final Result Performing Organization Address [facility] de Phone Number [facility] [address] [place] [address] * SODIUM (10/31/2004 18:48 EDT) Sodium 137 136 - 145 mEq/L [facility] 10/31/2004 18:4 8 EDT 10/31/2004 18:48 EDT us Hilton Álvarez MD CHEMISTRY & BLOOD GAS ORDE RABLES Final Result Performing Organization Address [facility] de Phone Number [facility] [address] [place] [address] * (ABNORMAL) SODIUM (10/31/2004 16:29 EDT) Sodium 133(L) 136 - 145 mEq/L [facility] Comment:Heparinized plasma. 10/31/2004 16:2 9 EDT 10/31/2004 16:29 EDT us Hilton Álvarez MD CHEMISTRY & BLOOD GAS ORDE RABLES Final Result Performing Organization Address [facility] de Phone Number [facility] [address] [place] [address] * (ABNORMAL) ELECTROLYTES (10/31/2004 12:08 EDT) Sodium [...] ORDE RABREBECA Final Result Performing Organization Address [facility] Phone Number [facility] [address] [place] [address] * (ABNORMAL) SODIUM (10/31/2004 8:18 EDT) Sodium 130(L) 136 - 145 mEq/L [facility] 10/31/2004 8:18 EDT 10/31/2004 8:18 EDT Hilton Álvarez MD CHEMISTRY & BLOOD GAS ORDE RABREBECA Final Result Performing Organization Address [facility] de Phone Number [facility] [address] [place] [address] * OSMOLALITY, URINE (10/31/2004 6:28 EDT) Osmolality, Ur 723 MOS/KG [facility] 10/31/2004 6:28 EDT 10/31/2004 6:28 EDT us Hilton Álvarez MD URINALYSIS ORDERABLES Jacquie l Result Performing Organization Address [facility] Co de Phone Number [facility] [address] [place] [address] * SODIUM, URINE RANDOM (10/31/2004 6:28 EDT) Sodium, Ur 188.0 mEq/L [facility] 10/31/2004 6:28 EDT 10/31/2004 6:28 EDT Hilton Álvarez MD URINALYSIS ORDERABLES Jacquie l Result Performing Organization Address [facility] Co de Phone Number [facility] [address] [place] [address] * OSMOLALITY (10/31/2004 6:26 EDT) Pathologist [facility] Osmolality Cintia 280 MOS/KG [facility] 10/31/2004 6:26 EDT 10/31/2004 6:26 EDT Hilton Álvarez MD CHEMISTRY & BLOOD GAS ORDE RABREEBCA Final Result Performing Organization Address [facility] de Phone Number [facility] [address] [place] [address] * (ABNORMAL) SODIUM (10/31/2004 6:26 EDT) Pathologist [facility] Sodium 128(L) 136 - 145 mEq/L [facility] 10/31/2004 6:26 EDT 10/31/2004 6:26 EDT Hilton Álvarez MD CHEMISTRY & BLOOD GAS ORDE RABREBECA Final Result Performing Organization Address [facility] de Phone Number [facility] [address] [place] [address] * (ABNORMAL) ELECTROLYTES (10/31/2004 4:18 EDT) Sodium 128(L) 136 - 145 mEq/L [facility] Potassium 4.3 3.6 - 5.2 mEq/L [facility] Chloride 91(L) 96 - 110 mEq/L [facility] CO2 28 24 - 32 mEq/L [facility] 10/31/2004 4:18 EDT 10/31/2004 4:18 EDT us Hilton Álvarez MD CHEMISTRY & BLOOD GAS [facility] Final Result Performing Organization Address City/[facility]/ZIP Co de Phone Number [facility] [address] [place] [address] * (ABNORMAL) HEMAGRAM AND DIFFERENTIAL (10/31/2004 4:18 [...] ORDER LYNDSEY Final Result Performing Organization Address City/[facility]/ZIP Co de Phone Number [facility] [address] [place] [address] * (ABNORMAL) ELECTROLYTES (10/30/2004 20:33 EDT) Sodium [...] Result Performing Organization Address [facility]/ZIP Co de Phone Number [facility] [address] [place] [address] * (ABNORMAL) SODIUM (10/30/2004 16:02 EDT) Sodium 133(L) 136 - 145 mEq/L [facility] 10/30/2004 16:0 2 EDT 10/30/2004 16:02 EDT Hilton Álvarez MD CHEMISTRY & BLOOD GAS ORDE RABLES Final Result Performing Organization Address [facility] de Phone Number [facility] [address] [place] [address] * (ABNORMAL) ELECTROLYTES (10/30/2004 12:09 EDT) Sodium 133(L) 136 - 145 mEq/L [facility] Potassium 3.8 3.6 - 5.2 mEq/L [facility] Chloride 95(L) 96 - 110 mEq/L [facility] CO2 28 24 - 32 mEq/L [facility] 10/30/2004 12:0 9 EDT 10/30/2004 12:09 EDT Hilton Álvarez MD CHEMISTRY & BLOOD GAS ORDE RABLES Final Result Performing Organization Address [facility] Co de Phone Number [facility] [address] [place] [address] * (ABNORMAL) SODIUM (10/30/2004 10:28 EDT) Sodium 132(L) 136 - 145 mEq/L [facility] 10/30/2004 10:2 8 EDT 10/30/2004 10:28 EDT Hilton Álvarez MD CHEMISTRY & BLOOD GAS ORDE RABLES Final Result Performing Organization Address [facility] de Phone Number [facility] [address] [place] [address] * PHENYTOIN (10/30/2004 4:13 EDT) Phenytoin 13.3 [...] ORDE RABLES Final Result Performing Organization Address [facility] de Phone Number [facility] [address] [place] [address] * (ABNORMAL) ELECTROLYTES (10/30/2004 4:13 EDT) Sodium [...] Result Performing Organization Address [facility] Co de Phone Number [facility] [address] [place] [address] * (ABNORMAL) HEMAGRAM AND DIFFERENTIAL (10/30/2004 4:13 [...] LAB % Eosinophils 1.2 % [facility] % Basophils 1.0 % [facility] [...] LYNDSEY Final Result [facility] [address] [place] [address] * (ABNORMAL) ELECTROLYTES (10/30/2004 0:11 EDT) Sodium [...] Result Performing Organization Address [facility] Co de Phone Number [facility] [address] [place] [address] * (ABNORMAL) SODIUM (10/30/2004 0:04 EDT) Sodium 131(L) 136 - 145 mEq/L [facility] 10/30/2004 0:04 EDT 10/31/2004 0:04 EDT Hilton Álvarez MD CHEMISTRY & BLOOD GAS ORDE RABLES Final Result Performing Organization Address [facility] de Phone Number [facility] [address] [place] [address] * (ABNORMAL) SODIUM (10/29/2004 22:00 EDT) Sodium 135(L) 136 - 145 mEq/L [facility] 10/29/2004 22:0 0 EDT 10/29/2004 22:00 EDT Hilton Álvarez MD CHEMISTRY & BLOOD GAS ORDE RABLES Final Result Performing Organization Address [facility] Phone Number [facility] [address] [place] [address] * (ABNORMAL) ELECTROLYTES (10/29/2004 18:14 EDT) Sodium 134(L) 136 - 145 mEq/L [facility] Potassium 5.0 3.6 - 5.2 mEq/L [facility] Chloride 99 96 - 110 mEq/L [facility] CO2 27 24 - 32 mEq/L [facility] 10/29/2004 18:1 4 EDT 10/29/2004 18:14 EDT Hilton Álvarez MD CHEMISTRY & BLOOD GAS ORDE RABLES Final Result Performing Organization Address [facility] de Phone Number [facility] [address] [place] [address] * (ABNORMAL) ELECTROLYTES (10/29/2004 16:19 EDT) Sodium [...] ORDE RABLES Final Result Performing Organization Address [facility] de Phone Number [facility] [address] [place] [address] * (ABNORMAL) SODIUM (10/29/2004 12:59 EDT) Sodium 132(L) 136 - 145 mEq/L [facility] Comment:Heparinized plasma. 10/29/2004 12:5 9 EDT 10/29/2004 12:59 EDT Hilton Álvarez MD CHEMISTRY & BLOOD GAS ORDE RABLES Final Result Performing Organization Address [facility] de Phone Number [facility] [address] [place] [address] * (ABNORMAL) ELECTROLYTES (10/29/2004 8:16 EDT) Sodium 135(L) 136 - 145 mEq/L [facility] Potassium 4.2 3.6 - 5.2 mEq/L [facility] Chloride 98 96 - 110 mEq/L [facility] CO2 30 24 - 32 mEq/L [facility] 10/29/2004 8:16 EDT 10/29/2004 8:16 EDT Hilton Álvarez MD CHEMISTRY & BLOOD GAS ORDE RABREBECA Final Result [facility] [address] [place] [address] * (ABNORMAL) SODIUM (10/29/2004 4:11 EDT) Pathologist [facility] Sodium 135(L) 136 - 145 mEq/L [facility] 10/29/2004 4:11 EDT 10/29/2004 4:11 EDT Hilton Álvarez MD CHEMISTRY & BLOOD GAS ORDE RABLES Final Result Performing Organization Address [facility] Co de Phone Number [facility] [address] [place] [address] * (ABNORMAL) T4 FREE (10/29/2004 4:11 EDT) Free T4 0.5(L) 0.8 - 1.8 ng/dl [facility] 10/29/2004 4:11 EDT 10/29/2004 4:11 EDT Hilton Álvarez MD CHEMISTRY & BLOOD GAS ORDE RABLES Final Result Performing Organization Address City/[facility] Co de Phone Number [facility] [address] [place] [address] * (ABNORMAL) HEMAGRAM AND DIFFERENTIAL (10/29/2004 4:11 [...] Result Performing Organization Address [facility] de Phone Number [facility] [address] [place] [address] * SODIUM (10/29/2004 4:00 EDT) Sodium 136 - 145 mEq/L [facility] 10/29/2004 4:00 EDT 11/12/2004 7:24 EDT Hilton Álvarez MD CHEMISTRY & BLOOD GAS ORDE RABREBECA Final Result Performing Organization Address [facility] Co de Phone Number [facility] [address] [place] [address] * ELECTROLYTES (10/29/2004 0:06 EDT) Sodium 136 [...] Result Performing Organization Address [facility] Co de Phone Number [facility] [address] [place] [address] * SODIUM (10/28/2004 20:20 EDT) Sodium 136 136 - 145 mEq/L [facility] 10/28/2004 20:2 0 EDT 10/28/2004 20:25 EDT Hilton Álvarez MD CHEMISTRY & BLOOD GAS ORDE RABREBECA Final Result Performing Organization Address [facility] Co de Phone Number [facility] [address] [place] [address] * ELECTROLYTES (10/28/2004 16:32 EDT) Sodium 136 136 - 145 mEq/L [facility] Potassium 4.1 3.6 - 5.2 mEq/L [facility] Chloride 100 96 - 110 mEq/L [facility] CO2 27 24 - 32 mEq/L [facility] 10/28/2004 16:3 2 EDT 10/28/2004 16:37 EDT Hilton Álvarez MD CHEMISTRY & BLOOD GAS ELEAZARE RABLES Final Result Performing Organization Address [facility] de Phone Number [facility] [address] [place] [address] * SODIUM (10/28/2004 12:21 EDT) Sodium 136 136 - 145 mEq/L [facility] Comment:Heparinized plasma. 10/28/2004 12:2 1 EDT 10/28/2004 12:21 EDT Hilton Álvarez MD CHEMISTRY & BLOOD GAS ORDE RABREBECA Final Result Performing Organization Address [facility] Co de Phone Number [facility] [address] [place] [address] * (ABNORMAL) ELECTROLYTES (10/28/2004 8:53 EDT) Sodium [...] Álvarez MD CHEMISTRY & BLOOD GAS ORDE [facility] Final Result Performing Organization Address [facility] Co de Phone Number [facility] [address] [place] [address] * PHENYTOIN (10/28/2004 4:41 EDT) Phenytoin 7.0 ug/ml [facility] Calculated Phenytoin 9.7 ug/ml [facility] Comment: Calculated phenytoin is adjusted for albumin level. Phenytoin levels may be further altered by severe renal failure (CrCl<10 ml/min). Consult pharmacy for renal or therapeutic dosing questions. 10/28/2004 4:41 EDT 10/28/2004 4:41 EDT Hilton Álvarez MD CHEMISTRY & BLOOD GAS ORDE [facility] Final Result Performing Organization Address [facility] Co de Phone Number [facility] [address] [place] [address] * ELECTROLYTES (10/28/2004 4:41 EDT) Sodium 139 136 - 145 mEq/L [facility] Potassium 4.2 3.6 - 5.2 mEq/L [facility] Chloride 99 96 - 110 mEq/L [facility] CO2 25 24 - 32 mEq/L [facility] 10/28/2004 4:41 EDT 10/28/2004 4:41 EDT Hilton Álvarez MD CHEMISTRY & BLOOD GAS ORDE [facility] Final Result [facility] [address] [place] [address] * (ABNORMAL) CREATININE (10/28/2004 4:41 EDT) Pathologist [facility] Creatinine 0.5(L) 0.6 - 1.2 mg/dl [facility] 10/28/2004 4:41 EDT 10/28/2004 4:41 EDT us Hilton Álvarez MD HISTORICAL LAB FOR SQ LOAD Final Result Performing Organization Address [facility] Co de Phone Number [facility] [address] [place] [address] * (ABNORMAL) HEMAGRAM AND DIFFERENTIAL (10/28/2004 4:41 EDT) [facility] WBC 8.20 4.5 - 13.0 K/cmm [...] LYNDSEY Final Result Performing Organization Address [facility] de Phone Number [facility] [address] [place] [address] * BUN (10/28/2004 4:41 EDT) BUN 17 8 - 21 mg/dl [facility] 10/28/2004 4:41 EDT 10/28/2004 4:41 EDT Hilton Álvarez MD CHEMISTRY & BLOOD GAS ORDE RABREBECA Final Result Performing Organization Address [facility] Phone Number [facility] [address] [place] [address] * (ABNORMAL) ELECTROLYTES (10/28/2004 0:20 EDT) Sodium 134(L) 136 - 145 mEq/L [facility] Potassium 4.8 3.6 - 5.2 mEq/L [facility] Chloride 98 96 - 110 mEq/L [facility] CO2 29 24 - 32 mEq/L [facility] 10/28/2004 0:20 EDT 10/28/2004 0:42 EDT Hilton Álvarez MD CHEMISTRY & BLOOD GAS ORDE RABLES Final Result Performing Organization Address [facility] de Phone Number [facility] [address] [place] [address] * SODIUM (10/27/2004 20:52 EDT) Sodium 136 136 - 145 mEq/L [facility] Comment:Heparinized plasma. 10/27/2004 20:5 2 EDT 10/27/2004 20:52 EDT Hilton Álvarez MD CHEMISTRY & BLOOD GAS ORDE RABLES Final Result Performing Organization Address [facility] de Phone Number [facility] [address] [place] [address] * ELECTROLYTES (10/27/2004 16:02 EDT) Sodium 136 [...] ORDE RABLES Final Result Performing Organization Address [facility] de Phone Number [facility] [address] [place] [address] * (ABNORMAL) SODIUM (10/27/2004 12:49 EDT) Sodium 135(L) 136 - 145 mEq/L [facility] 10/27/2004 12:4 9 EDT 10/27/2004 12:49 EDT Hilton Álvarez MD CHEMISTRY & BLOOD GAS ORDE RABLES Final Result Performing Organization Address [facility] de Phone Number [facility] [address] [place] [address] * (ABNORMAL) ELECTROLYTES (10/27/2004 8:21 EDT) Sodium 137 136 - 145 mEq/L [facility] Potassium 3.4(L) 3.6 - 5.2 mEq/L [facility] Chloride 112(H) 96 - 110 mEq/L [facility] CO2 21(L) 24 - 32 mEq/L [facility] 10/27/2004 8:21 EDT 10/27/2004 8:21 EDT Hilton Álvarez MD CHEMISTRY & BLOOD GAS ORDE RABLES Final Result Performing Organization Address [facility] de Phone Number [facility] [address] [place] [address] * PHENYTOIN (10/27/2004 4:18 EDT) Phenytoin 10.6 [...] ORDE RABLES Final Result Performing Organization Address [facility] de Phone Number [facility] [address] [place] [address] * SODIUM (10/27/2004 4:18 EDT) Pathologist [facility] [place] Sodium 137 136 - 145 mEq/L [facility] 10/27/2004 4:18 EDT 10/27/2004 4:18 EDT Hilton Álvarez MD CHEMISTRY & BLOOD GAS ORDE RABLES Final Result Performing Organization Address [facility] de Phone Number [facility] [address] [place] [address] * (ABNORMAL) CREATININE (10/27/2004 4:18 EDT) Creatinine 0.5(L) 0.6 - 1.2 mg/dl [facility] 10/27/2004 4:18 EDT 10/27/2004 4:18 EDT Hilton Álvarez MD HISTORICAL LAB FOR SQ LOAD Final Result [facility] [address] [place] [address] * (ABNORMAL) HEMAGRAM AND DIFFERENTIAL (10/27/2004 4:18 [...] LYNDSEY Final Result [facility] [address] [place] [address] * BUN (10/27/2004 4:18 EDT) BUN 13 8 - 21 mg/dl [facility] 10/27/2004 4:18 EDT 10/27/2004 4:18 EDT us Hilton Álvarez MD CHEMISTRY & BLOOD GAS ORDE RABLES Final Result Performing Organization Address [facility]/ZIP Co de Phone Number [facility] [address] [place] [address] * ELECTROLYTES (10/27/2004 2:28 EDT) Sodium 136 136 - 145 mEq/L [facility] Potassium 4.6 3.6 - 5.2 mEq/L [facility] Chloride 101 96 - 110 mEq/L [facility] CO2 28 24 - 32 mEq/L [facility] 10/27/2004 2:28 EDT 10/27/2004 2:28 EDT us Hilton Álvarez MD CHEMISTRY & BLOOD GAS ORDE RABLES Final Result Performing Organization Address City/[facility] Co de Phone Number [facility] [address] [place] [address] * SODIUM (10/26/2004 20:40 EDT) Sodium 138 136 - 145 mEq/L [facility] 10/26/2004 20:4 0 EDT 10/26/2004 20:52 EDT us Hilton Álvarez MD CHEMISTRY & BLOOD GAS ORDE RABLES Final Result Performing Organization Address City/[facility]/ZIP Co de Phone Number [facility] [address] [place] [address] * ELECTROLYTES (10/26/2004 16:01 EDT) Sodium 137 [...] Result Performing Organization Address [facility] Co de Phone Number [facility] [address] [place] [address] * SODIUM (10/26/2004 12:39 EDT) Sodium 138 136 - 145 mEq/L [facility] Comment:Heparinized plasma. 10/26/2004 12:3 9 EDT 10/26/2004 12:39 EDT Hilton Álvarez MD CHEMISTRY & BLOOD GAS ORDE RABLES Final Result Performing Organization Address [facility] de Phone Number [facility] [address] [place] [address] * MAGNESIUM (10/26/2004 8:05 EDT) Magnesium 2.4 1.7 - 2.8 mg/dl [facility] Comment:Heparinized plasma. 10/26/2004 8:05 EDT 10/26/2004 8:05 EDT Hilton Álvarez MD CHEMISTRY & BLOOD GAS ORDE RABLES Final Result Performing Organization Address [facility] Co de Phone Number [facility] [address] [place] [address] * ELECTROLYTES (10/26/2004 8:05 EDT) Sodium 138 [...] Final Result Performing Organization Address [facility] de Phone Number [facility] [address] [place] [address] * PHENYTOIN (10/26/2004 3:53 EDT) Phenytoin 13.6 [...] ORDE RIDDHI Final Result Performing Organization Address [facility] Phone Number [facility] [address] [place] [address] * (ABNORMAL) SODIUM (10/26/2004 3:53 EDT) Sodium 134(L) 136 - 145 mEq/L [facility] Comment:Heparinized plasma. 10/26/2004 3:53 EDT 10/26/2004 3:53 EDT Hilton Álvarez MD CHEMISTRY & BLOOD GAS ORDE RABLES Final Result Performing Organization Address [facility] de Phone Number [facility] [address] [place] [address] * (ABNORMAL) CREATININE (10/26/2004 3:53 EDT) Creatinine 0.5(L) 0.6 - 1.2 mg/dl [facility] Comment:Heparinized plasma. 10/26/2004 3:53 EDT 10/26/2004 3:53 EDT us Hilton Álvarez MD HISTORICAL LAB FOR SQ LOAD Final Result Performing Organization Address [facility]/ZIP Co de Phone Number [facility] [address] [place] [address] * (ABNORMAL) HEMAGRAM AND DIFFERENTIAL (10/26/2004 3:53 EDT) Pathologist [facility] [place] WBC 12.68 4.5 - 13.0 K/cmm [facility] [...] ORDER LYNDSEY Final Result Performing Organization Address City/[facility]/ZIP Co de Phone Number [facility] [address] [place] [address] * BUN (10/26/2004 3:53 EDT) BUN 18 8 - 21 mg/dl [facility] Comment:Heparinized plasma. 10/26/2004 3:53 EDT 10/26/2004 3:53 EDT Hilton Álvarez MD CHEMISTRY & BLOOD GAS ORDE RABLES Final Result Performing Organization Address [facility] de Phone Number [facility] [address] [place] [address] * (ABNORMAL) ELECTROLYTES (10/26/2004 0:15 EDT) Sodium 135(L) 136 - 145 mEq/L [facility] Potassium 3.8 3.6 - 5.2 mEq/L [facility] Chloride 100 96 - 110 mEq/L [facility] CO2 27 24 - 32 mEq/L [facility] 10/26/2004 0:15 EDT 10/26/2004 0:15 EDT Hilton Álvarez MD CHEMISTRY & BLOOD GAS ORDE RABLES Final Result Performing Organization Address [facility] de Phone Number [facility] [address] [place] [address] * SODIUM (10/25/2004 20:41 EDT) Sodium 139 136 - 145 mEq/L [facility] 10/25/2004 20:4 1 EDT 10/25/2004 20:41 EDT Hilton Álvarez MD CHEMISTRY & BLOOD GAS ORDE RABLES Final Result Performing Organization Address [facility] Co de Phone Number [facility] [address] [place] [address] * ELECTROLYTES (10/25/2004 17:25 EDT) Sodium 137 136 - 145 mEq/L [facility] Potassium 3.9 3.6 - 5.2 mEq/L [facility] Chloride 100 96 - 110 mEq/L [facility] CO2 28 24 - 32 mEq/L [facility] 10/25/2004 17:2 5 EDT 10/25/2004 17:27 EDT Hilton Álvarez MD CHEMISTRY & BLOOD GAS ORDE RABLES Final Result Performing Organization Address [facility] de Phone Number [facility] [address] [place] [address] * SODIUM (10/25/2004 12:15 EDT) Sodium 137 136 - 145 mEq/L [facility] Comment:Heparinized plasma. 10/25/2004 12:1 5 EDT 10/25/2004 12:32 EDT Hilton Álvarez MD CHEMISTRY & BLOOD GAS ORDE RABLES Final Result Performing Organization Address [facility] Phone Number [facility] [address] [place] [address] * ELECTROLYTES (10/25/2004 8:30 EDT) Sodium 136 [...] Final Result Performing Organization Address [facility] de Phone Number [facility] [address] [place] [address] * TOTAL BILIRUBIN (10/25/2004 4:13 EDT) Bilirubin, Total <0.5 0.0 - 1.4 mg/dl [facility] 10/25/2004 4:13 EDT 10/25/2004 4:13 EDT Hilton Álvarez MD CHEMISTRY & BLOOD GAS ORDE RABLES Final Result Performing Organization Address [facility] Co de Phone Number [facility] [address] [place] [address] * PHOSPHORUS (10/25/2004 4:13 EDT) Phosphorus 2.9 2.9 - 5.4 mg/dl [facility] 10/25/2004 4:13 EDT 10/25/2004 4:13 EDT Hilton Álvarez MD CHEMISTRY & BLOOD GAS ORDE RABLES Final Result Performing Organization Address [facility] de Phone Number [facility] [address] [place] [address] * PHENYTOIN (10/25/2004 4:13 EDT) Phenytoin 12.2 [...] Result Performing Organization Address [facility] Co de Phone Number [facility] [address] [place] [address] * MAGNESIUM (10/25/2004 4:13 EDT) Magnesium 1.8 1.7 - 2.8 mg/dl [facility] 10/25/2004 4:13 EDT 10/25/2004 4:13 EDT Hilton Álvarez MD CHEMISTRY & BLOOD GAS ORDE RABREBECA Final Result Performing Organization Address [facility] de Phone Number [facility] [address] [place] [address] * (ABNORMAL) ELECTROLYTES (10/25/2004 4:13 EDT) Sodium 140 136 - 145 mEq/L [facility] Potassium 3.4(L) 3.6 - 5.2 mEq/L [facility] Chloride 112(H) 96 - 110 mEq/L [facility] CO2 18(L) 24 - 32 mEq/L [facility] 10/25/2004 4:13 EDT 10/25/2004 4:13 EDT Hilton Álvarez MD CHEMISTRY & BLOOD GAS ORDE RABREBECA Final Result Performing Organization Address [facility] de Phone Number [facility] [address] [place] [address] * (ABNORMAL) CREATININE (10/25/2004 4:13 EDT) Creatinine 0.4(L) 0.6 - 1.2 mg/dl [facility] 10/25/2004 4:13 EDT 10/25/2004 4:13 EDT Hilton Álvarez MD HISTORICAL LAB FOR SQ LOAD Final Result Performing Organization Address [facility] de Phone Number [facility] [address] [place] [address] * (ABNORMAL) HEMAGRAM AND DIFFERENTIAL (10/25/2004 4:13 [...] ORDER LYNDSEY Final Result Performing Organization Address City/[facility]/ZIP Co de Phone Number [facility] [address] [place] [address] * (ABNORMAL) CALCIUM (10/25/2004 4:13 EDT) Calcium 7.1(L) 8.5 - 10.5 mg/dl [facility] Calculated Calcium 8.9 8.5 - 10.5 mg/dl [facility] 10/25/2004 4:13 EDT 10/25/2004 4:13 EDT Hilton Álvarez MD CHEMISTRY & BLOOD GAS ORDE [facility] Final Result Performing Organization Address City/[facility]/ZIP Co de Phone Number [facility] [address] [place] [address] * BUN (10/25/2004 4:13 EDT) BUN 14 8 - 21 mg/dl [facility] 10/25/2004 4:13 EDT 10/25/2004 4:13 EDT us Hilton Álvarez MD CHEMISTRY & BLOOD GAS ORDE RABLES Final Result [facility] [address] [place] [address] * (ABNORMAL) AST (10/25/2004 4:13 EDT) AST 179(H) 16 - 38 U/L [facility] 10/25/2004 4:13 EDT 10/25/2004 4:13 EDT us Hilton Álvarez MD CHEMISTRY & BLOOD GAS ORDE RABLES Final Result Performing Organization Address [facility] Co de Phone Number [facility] [address] [place] [address] * (ABNORMAL) ALT (10/25/2004 4:13 EDT) ALT 493(H) 10 - 45 U/L [facility] 10/25/2004 4:13 EDT 10/25/2004 4:13 EDT us Hilton Álvarez MD CHEMISTRY & BLOOD GAS ORDE RABLES Final Result Performing Organization Address [facility] Co de Phone Number [facility] [address] [place] [address] * (ABNORMAL) ALKALINE PHOSPHATASE (10/25/2004 4:13 EDT) Total Alkaline Phosphatase 90(L) 130 - 525 U/L [facility] 10/25/2004 4:13 EDT 10/25/2004 4:13 EDT us Hilton Álvarez MD CHEMISTRY & BLOOD GAS ORDE RABLES Final Result Performing Organization Address City/[facility]/ZIP Co de Phone Number [facility] [address] [place] [address] * (ABNORMAL) ELECTROLYTES (10/25/2004 0:07 EDT) Sodium 140 136 - 145 mEq/L [facility] Potassium 3.3(L) 3.6 - 5.2 mEq/L [facility] Chloride 110 96 - 110 mEq/L [facility] CO2 24 24 - 32 mEq/L [facility] 10/25/2004 0:07 EDT 10/25/2004 0:07 EDT Hilton Álvarez MD CHEMISTRY & BLOOD GAS ORDE RABLES Final Result Performing Organization Address City/[facility]/ZIP Co de Phone Number [facility] [address] [place] [address] * SODIUM (10/24/2004 20:14 EDT) Sodium 139 136 - 145 mEq/L [facility] 10/24/2004 20:1 4 EDT 10/24/2004 20:14 EDT Hilton Álvarez MD CHEMISTRY & BLOOD GAS ORDE RABLES Final Result Performing Organization Address City/[facility] Co de Phone Number [facility] [address] [place] [address] * PHOSPHORUS (10/24/2004 16:01 EDT) Phosphorus 2.9 2.9 - 5.4 mg/dl [facility] 10/24/2004 16:0 1 EDT 10/24/2004 16:06 EDT Hilton Álvarez MD CHEMISTRY & BLOOD GAS ORDE RABLES Final Result Performing Organization Address City/[facility] Co de Phone Number [facility] [address] [place] [address] * ELECTROLYTES (10/24/2004 16:01 EDT) Sodium 140 [...] Result Performing Organization Address [facility] de Phone Number [facility] [address] [place] [address] * SODIUM (10/24/2004 12:05 EDT) Sodium 142 136 - 145 mEq/L [facility] 10/24/2004 12:0 5 EDT 10/24/2004 12:05 EDT Hilton Álvarez MD CHEMISTRY & BLOOD GAS ORDE RABLES Final Result Performing Organization Address [facility] de Phone Number [facility] [address] [place] [address] * (ABNORMAL) ELECTROLYTES (10/24/2004 10:36 EDT) Sodium [...] Final Result Performing Organization Address [facility] de Phone Number [facility] [address] [place] [address] * SODIUM (10/24/2004 8:01 EDT) Sodium 140 136 - 145 mEq/L [facility] 10/24/2004 8:01 EDT 10/24/2004 8:01 EDT Hilton Álvarez MD CHEMISTRY & BLOOD GAS ORDE RABLES Final Result Performing Organization Address [facility] Phone Number [facility] [address] [place] [address] * SODIUM (10/24/2004 6:07 EDT) Sodium 136 - 145 mEq/L [facility] 10/24/2004 6:07 EDT 10/24/2004 6:07 EDT Hilton Álvarez MD CHEMISTRY & BLOOD GAS ORDE RABLES Final Result Performing Organization Address [facility] Phone Number [facility] [address] [place] [address] * (ABNORMAL) ELECTROLYTES (10/24/2004 6:07 EDT) Sodium [...] Result Performing Organization Address [facility] de Phone Number [facility] [address] [place] [address] * (ABNORMAL) PHENYTOIN (10/24/2004 4:07 EDT) Phenytoin [...] ORDE RABLES Final Result Performing Organization Address [facility] de Phone Number [facility] [address] [place] [address] * SODIUM (10/24/2004 4:07 EDT) Sodium 138 136 - 145 mEq/L [facility] Comment:Heparinized plasma. 10/24/2004 4:07 EDT 10/24/2004 4:07 EDT Hilton Álvarez MD CHEMISTRY & BLOOD GAS ORDE RABLES Final Result Performing Organization Address [facility] Phone Number [facility] [address] [place] [address] * (ABNORMAL) CREATININE (10/24/2004 4:07 EDT) Creatinine 0.5(L) 0.6 - 1.2 mg/dl [facility] Comment:Heparinized plasma. 10/24/2004 4:07 EDT 10/24/2004 4:07 EDT Hilton Álvarez MD HISTORICAL LAB FOR SQ LOAD Final Result Performing Organization Address [facility] de Phone Number [facility] [address] [place] [address] * (ABNORMAL) HEMAGRAM AND DIFFERENTIAL (10/24/2004 4:07 [...] Result Performing Organization Address [facility] Co de Phone Number [facility] [address] [place] [address] * BUN (10/24/2004 4:07 EDT) BUN 15 8 - 21 mg/dl [facility] Comment:Heparinized plasma. 10/24/2004 4:07 EDT 10/24/2004 4:07 EDT us Hilton Álvarez MD CHEMISTRY & BLOOD GAS ORDE RABLES Final Result Performing Organization Address [facility] Co de Phone Number [facility] [address] [place] [address] * (ABNORMAL) ELECTROLYTES (10/24/2004 2:23 EDT) Sodium [...] ORDE RABLES Final Result Performing Organization Address [facility] Phone Number [facility] [address] [place] [address] * SODIUM (10/24/2004 2:12 EDT) Sodium 136 - 145 mEq/L [facility] 10/24/2004 2:12 EDT 10/24/2004 2:22 EDT Hilton Álvarez MD CHEMISTRY & BLOOD GAS ORDE RABLES Final Result Performing Organization Address [facility] Phone Number [facility] [address] [place] [address] * SODIUM (10/24/2004 0:47 EDT) Sodium 141 136 - 145 mEq/L [facility] Comment:Heparinized plasma. 10/24/2004 0:47 EDT 10/24/2004 0:47 EDT Hilton Álvarez MD CHEMISTRY & BLOOD GAS ORDE RABLES Final Result Performing Organization Address [facility] de Phone Number [facility] [address] [place] [address] * (ABNORMAL) GLUCOSE, GLUCOMETER (10/24/2004 0:12 EDT) Glucose, Fingerstick 145(H) 70 - 110 mg/dl [facility] Dietitian Consultant ID [id number] Test Performed by Nursing Services [facility] GARC[facility] 10/24/2004 0:12 EDT 10/25/2004 0:24 EDT Hilton Álvarez MD CHEMISTRY & BLOOD GAS ORDE RABLES Final Result Performing Organization Address [facility] de Phone Number [facility] [address] [place] [address] * (ABNORMAL) ELECTROLYTES (10/23/2004 22:07 EDT) Sodium 141 136 - 145 mEq/L [facility] Potassium 2.9(LL) 3.6 - 5.2 mEq/L [facility] Chloride 107 96 - 110 mEq/L [facility] CO2 27 24 - 32 mEq/L [facility] 10/23/2004 22:0 7 EDT 10/23/2004 22:07 EDT Hilton Álvarez MD CHEMISTRY & BLOOD GAS ORDE RABLES Final Result Performing Organization Address [facility] de Phone Number [facility] [address] [place] [address] * (ABNORMAL) SODIUM (10/23/2004 20:02 EDT) Sodium 146(H) 136 - 145 mEq/L [facility] 10/23/2004 20:0 2 EDT 10/23/2004 20:02 EDT Hilton Álvarez MD CHEMISTRY & BLOOD GAS ORDE RABLES Final Result Performing Organization Address [facility] de Phone Number [facility] [address] [place] [address] * (ABNORMAL) ELECTROLYTES (10/23/2004 17:40 EDT) Sodium [...] Result [facility] [address] [place] [address] * CT HEAD WO CONTRAST (10/23/2004 15:29 [...] since previous, as is the sinus thickening. /[facility] Narrative 03/06/2009 9:26 EDT H/O AKINETIC [...] since previous, as is the sinus thickening. /[facility] Hilton Álvarez MD IMG CT ORDERABLES [...] HANNON Final Result [facility] [address] [place] [address] * (ABNORMAL) SODIUM (10/23/2004 14:07 EDT) Sodium 146(H) 136 - 145 mEq/L [facility] Comment:Slight hemolysis 10/23/2004 14:0 7 EDT 10/23/2004 14:07 EDT Hilton Álvarez MD CHEMISTRY & BLOOD GAS ORDE RABLES Final Result Performing Organization Address City/State/[facility] Co de Phone Number [facility] [address] [place] [address] * (ABNORMAL) ELECTROLYTES (10/23/2004 11:54 EDT) Sodium [...] Final Result Performing Organization Address [facility] Co de Phone Number [facility] [address] [place] [address] * (ABNORMAL) SODIUM (10/23/2004 10:00 EDT) Sodium 149(H) 136 - 145 mEq/L [facility] Comment:Heparinized plasma. 10/23/2004 10:0 0 EDT 10/23/2004 10:00 EDT Hilton Álvarez MD CHEMISTRY & BLOOD GAS ORDE RABREBECA Final Result Performing Organization Address [facility] Co de Phone Number [facility] [address] [place] [address] * (ABNORMAL) ELECTROLYTES (10/23/2004 7:51 EDT) Sodium 149(H) 136 - 145 mEq/L [facility] Potassium 3.3(L) 3.6 - 5.2 mEq/L [facility] Chloride 116(H) 96 - 110 mEq/L [facility] CO2 26 24 - 32 mEq/L [facility] 10/23/2004 7:51 EDT 10/23/2004 7:51 EDT us Hilton Álvarez MD CHEMISTRY & BLOOD GAS ORDEmerald HANNON Final Result Performing Organization Address [facility] Phone Number [facility] [address] [place] [address] * (ABNORMAL) SODIUM (10/23/2004 6:00 EDT) Sodium 150(H) 136 - 145 mEq/L [facility] 10/23/2004 6:00 EDT 10/23/2004 6:21 EDT us Hilton Álvarez MD CHEMISTRY & BLOOD GAS ORDEmerald RABREBECA Final Result Performing Organization Address [facility] Phone Number [facility] [address] [place] [address] * (ABNORMAL) ELECTROLYTES (10/23/2004 4:00 EDT) Sodium 150(H) 136 - 145 mEq/L [facility] Potassium 3.6 3.6 - 5.2 mEq/L [facility] Chloride 118(H) 96 - 110 mEq/L [facility] CO2 26 24 - 32 mEq/L [facility] 10/23/2004 4:00 EDT 10/23/2004 4:17 EDT us Hilton Álvarez MD CHEMISTRY & BLOOD GAS ORDEmerald HANNON Final Result Performing Organization Address [facility] de Phone Number [facility] [address] [place] [address] * (ABNORMAL) CREATININE (10/23/2004 4:00 EDT) Creatinine 0.5(L) 0.6 - 1.2 mg/dl [facility] 10/23/2004 4:00 EDT 10/23/2004 4:17 EDT us Hilton Álvarez MD HISTORICAL LAB FOR SQ LOAD Final Result Performing Organization Address [facility]/State/ZIP Co de Phone Number [facility] [address] [place] [address] * (ABNORMAL) HEMAGRAM AND DIFFERENTIAL (10/23/2004 4:00 [...] LYNDSEY Final Result [facility] [address] [place] [address] * BUN (10/23/2004 4:00 EDT) BUN 16 8 - 21 mg/dl [facility] 10/23/2004 4:00 EDT 10/23/2004 4:17 EDT Hilton Álvarez MD CHEMISTRY & BLOOD GAS ORDE RABLES Final Result Performing Organization Address City/[facility] Co de Phone Number [facility] [address] [place] [address] * (ABNORMAL) SODIUM (10/23/2004 2:00 EDT) Sodium 153(H) 136 - 145 mEq/L [facility] 10/23/2004 2:00 EDT 10/23/2004 2:13 EDT Hilton Álvarez MD CHEMISTRY & BLOOD GAS ORDE RABLES Final Result Performing Organization Address [facility] Co de Phone Number [facility] [address] [place] [address] * (ABNORMAL) ELECTROLYTES (10/23/2004 0:00 EDT) Sodium [...] Result Performing Organization Address [facility] Co de Phone Number [facility] [address] [place] [address] * (ABNORMAL) SODIUM (10/22/2004 21:59 EDT) Sodium 149(H) 136 - 145 mEq/L [facility] 10/22/2004 21:5 9 EDT 10/22/2004 21:59 EDT Hilton Álvarez MD CHEMISTRY & BLOOD GAS ORDE RABLES Final Result Performing Organization Address [facility] Co de Phone Number [facility] [address] [place] [address] * (ABNORMAL) ELECTROLYTES (10/22/2004 20:23 EDT) Sodium [...] Result Performing Organization Address [facility] Co de Phone Number [facility] [address] [place] [address] * (ABNORMAL) SODIUM (10/22/2004 18:05 EDT) Sodium 147(H) 136 - 145 mEq/L [facility] 10/22/2004 18:0 5 EDT 10/22/2004 18:09 EDT Hilton Álvarez MD CHEMISTRY & BLOOD GAS ORDE RABLES Final Result Performing Organization Address [facility] de Phone Number [facility] [address] [place] [address] * (ABNORMAL) ELECTROLYTES (10/22/2004 16:40 EDT) Sodium 148(H) 136 - 145 mEq/L [facility] Potassium 3.4(L) 3.6 - 5.2 mEq/L [facility] Chloride 120(H) 96 - 110 mEq/L [facility] CO2 24 24 - 32 mEq/L [facility] 10/22/2004 16:4 0 EDT 10/22/2004 16:43 EDT Hilton Álvarez MD CHEMISTRY & BLOOD GAS ORDE RABLES Final Result Performing Organization Address City/[facility] Co de Phone Number [facility] [address] [place] [address] * TRIGLYCERIDE (10/22/2004 14:10 EDT) Triglycerides 164 34 - 165 mg/dl [facility] Comment:Heparinized plasma. 10/22/2004 14:1 0 EDT 10/22/2004 14:16 EDT Hilton Álvarez MD CHEMISTRY & BLOOD GAS HERMES HANNON Final Result Performing Organization Address [facility] de Phone Number [facility] [address] [place] [address] * (ABNORMAL) SODIUM (10/22/2004 14:10 EDT) Sodium 147(H) 136 - 145 mEq/L [facility] Comment:Heparinized plasma. 10/22/2004 14:1 0 EDT 10/22/2004 14:16 EDT Hilton Álvarez MD CHEMISTRY & BLOOD GAS HERMES HANNON Final Result Performing Organization Address [facility] de Phone Number [facility] [address] [place] [address] * OSMOLALITY, URINE (10/22/2004 12:50 EDT) Pathologist [facility] [place] Osmolality, Ur 864 MOS/KG HOLLY GARCIA 10/22/2004 12:5 0 EDT 10/22/2004 12:52 EDT Hilton Álvarez MD URINALYSIS ORDERABLES Jacquie l Result Performing Organization Address [facility] de Phone Number [facility] [address] [place] [address] * SODIUM, URINE RANDOM (10/22/2004 12:50 EDT) Pathologist [facility] [place] Sodium, Ur 191.0 mEq/L [facility] 10/22/2004 12:5 0 EDT 10/22/2004 12:52 EDT Hilton Álvarez MD URINALYSIS ORDERABLES Jacquie l Result Performing Organization Address [facility] Co de Phone Number [facility] [address] [place] [address] * (ABNORMAL) GLUCOSE, GLUCOMETER (10/22/2004 12:16 EDT) Glucose, Fingerstick 124(H) 70 - 110 mg/dl [facility] Dietitian Consultant ID [id number] Test Performed by Nursing Services [facility] 10/22/2004 12:1 6 EDT 10/23/2004 0:41 EDT Hilton Álvarez MD CHEMISTRY & BLOOD GAS ORDE RABREBECA Final Result Performing Organization Address [facility] Co de Phone Number [facility] [address] [place] [address] * (ABNORMAL) T4 FREE (10/22/2004 12:05 EDT) Pathologist [facility] Free T4 0.5(L) 0.8 - 1.8 ng/dl [facility] Comment:Test added by phone 10/22/2004 12:0 5 EDT 10/22/2004 14:04 EDT Hilton Álvarez MD CHEMISTRY & BLOOD GAS ORDE RABREBECA Final Result Performing Organization Address [facility] de Phone Number [facility] [address] [place] [address] * (ABNORMAL) ELECTROLYTES (10/22/2004 12:05 EDT) Sodium 147(H) 136 - 145 mEq/L [facility] Potassium 3.6 3.6 - 5.2 mEq/L [facility] Chloride 116(H) 96 - 110 mEq/L [facility] CO2 25 24 - 32 mEq/L [facility] 10/22/2004 12:0 5 EDT 10/22/2004 12:19 EDT Hilton Álvarez MD CHEMISTRY & BLOOD GAS ORDE RABLES Final Result Performing Organization Address City/[facility] Co de Phone Number [facility] [address] [place] [address] * T4 FREE (10/22/2004 12:05 EDT) Free T4 Testing cannot be performed on heparinized samples. 0.8 - 1.8 ng/dl [facility] 10/22/2004 12:0 5 EDT 10/22/2004 12:19 EDT Hilton Álvarez MD CHEMISTRY & BLOOD GAS ORDE RABLES Final Result Performing Organization Address [facility] Co de Phone Number [facility] [address] [place] [address] * TESTS ADDED BY PHONE (10/22/2004 12:05 EDT) [facility] Tests to be added FT4 [facility] 10/22/2004 12:0 5 EDT 10/22/2004 12:19 EDT Hilton Álvarez MD CHEMISTRY & BLOOD GAS ORDE RABLES Final Result Performing Organization Address [facility] de Phone Number [facility] [address] [place] [address] * (ABNORMAL) SODIUM (10/22/2004 10:00 EDT) [facility] Sodium 148(H) 136 - 145 mEq/L [facility] 10/22/2004 10:0 0 EDT 10/22/2004 10:03 EDT Hilton Álvarez MD CHEMISTRY & BLOOD GAS ORDE RABLES Final Result Performing Organization Address [facility] de Phone Number [facility] [address] [place] [address] * (ABNORMAL) ELECTROLYTES (10/22/2004 8:10 EDT) [facility] Sodium 147(H) 136 - 145 mEq/L [...] RABLES Final Result [facility] [address] [place] [address] * T4 FREE (10/22/2004 8:10 EDT) Free T4 Testing cannot be performed on heparinized samples. 0.8 - 1.8 ng/dl [facility] 10/22/2004 8:10 EDT 10/22/2004 8:19 EDT Hilton Álvarez MD CHEMISTRY & BLOOD GAS ORDE RABLES Final Result Performing Organization Address City/[facility]/ZIP Co de Phone Number [facility] [address] [place] [address] * TESTS ADDED BY PHONE (10/22/2004 8:10 EDT) Tests to be added FT4 [facility] 10/22/2004 8:10 EDT 10/22/2004 8:19 EDT Hilton Álvarez MD CHEMISTRY & BLOOD GAS ORDE RABLES Final Result Performing Organization Address City/[facility]/ZIP Co de Phone Number [facility] [address] [place] [address] * (ABNORMAL) SODIUM (10/22/2004 6:05 EDT) Sodium 149(H) 136 - 145 mEq/L [facility] 10/22/2004 6:05 EDT 10/22/2004 6:05 EDT Hilton Álvarez MD CHEMISTRY & BLOOD GAS ORDE RABLES Final Result Performing Organization Address [facility] Co de Phone Number [facility] [address] [place] [address] * TOTAL BILIRUBIN (10/22/2004 4:15 EDT) Bilirubin, Total <0.5 0.0 - 1.4 mg/dl [facility] Comment:Heparinized plasma. 10/22/2004 4:15 EDT 10/22/2004 4:15 EDT Hilton Álvarez MD CHEMISTRY & BLOOD GAS ORDE RABLES Final Result Performing Organization Address [facility] Phone Number [facility] [address] [place] [address] * GLUCOSE, SERUM (10/22/2004 4:15 EDT) Glucose, Serum 104 70 - 110 mg/dl [facility] Comment:Heparinized plasma. 10/22/2004 4:15 EDT 10/22/2004 4:15 EDT Hilton Álvarez MD CHEMISTRY & BLOOD GAS ORDE RABLES Final Result Performing Organization Address [facility] de Phone Number [facility] [address] [place] [address] * (ABNORMAL) PHOSPHORUS (10/22/2004 4:15 EDT) Phosphorus 2.8(L) 2.9 - 5.4 mg/dl [facility] Comment:Heparinized plasma. 10/22/2004 4:15 EDT 10/22/2004 4:15 EDT Hilton Álvarez MD CHEMISTRY & BLOOD GAS ORDE RABLES Final Result Performing Organization Address [facility] Co de Phone Number [facility] [address] [place] [address] * MAGNESIUM (10/22/2004 4:15 EDT) Pathologist [facility] Magnesium 2.6 1.7 - 2.8 mg/dl [facility] Comment:Heparinized plasma. 10/22/2004 4:15 EDT 10/22/2004 4:15 EDT Hilton Álvarez MD CHEMISTRY & BLOOD GAS ORDE [facility] Final Result Performing Organization Address [facility] de Phone Number [facility] [address] [place] [address] * (ABNORMAL) ELECTROLYTES (10/22/2004 4:15 EDT) Pathologist [facility] Sodium [...] Álvarez MD CHEMISTRY & BLOOD GAS ORDE [facility] Final Result Performing Organization Address [facility] Phone Number [facility] [address] [place] [address] * (ABNORMAL) CREATININE (10/22/2004 4:15 EDT) [facility] Creatinine 0.5(L) 0.6 - 1.2 mg/dl [facility] Comment:Heparinized plasma. 10/22/2004 4:15 EDT 10/22/2004 4:15 EDT Hilton Álvarez MD HISTORICAL LAB FOR SQ LOAD Final Result Performing Organization Address [facility] de Phone Number [facility] [address] [place] [address] * (ABNORMAL) HEMAGRAM AND DIFFERENTIAL (10/22/2004 4:15 EDT) WBC 6.26 4.5 - 13.0 K/cmm [facility] RBC 3.29(L) 4.50 - 5.30 M/cmm [facility] Hemoglobin 9.4(L) 13.0 - 16.0 gm/dl [facility] HCT 26.8(L) 37.0 - 49.0 % [facility] MCV 81 78 - 98 fl [facility] MCH 28.4 pg [facility] MCHC 34.9 gm/dl [facility] [...] LYNDSEY Final Result [facility] [address] [place] [address] * (ABNORMAL) CALCIUM (10/22/2004 4:15 EDT) Calcium 7.6(L) 8.5 - 10.5 mg/dl [facility] Comment:Heparinized plasma. Calculated Calcium 9.0 8.5 - 10.5 mg/dl [facility] Comment:Heparinized plasma. 10/22/2004 4:15 EDT 10/22/2004 4:15 EDT us Hilton Álvarez MD CHEMISTRY & BLOOD GAS ORDE RABLES Final Result Performing Organization Address [facility] Co de Phone Number [facility] [address] [place] [address] * BUN (10/22/2004 4:15 EDT) BUN 15 8 - 21 mg/dl [facility] Comment:Heparinized plasma. 10/22/2004 4:15 EDT 10/22/2004 4:15 EDT us Hilton Álvarez MD CHEMISTRY & BLOOD GAS ORDE RABLES Final Result Performing Organization Address [facility] de Phone Number [facility] [address] [place] [address] * (ABNORMAL) AST (10/22/2004 4:15 EDT) AST 91(H) 16 - 38 U/L [facility] Comment: Sample retested, result confirmed Heparinized plasma. 10/22/2004 4:15 EDT 10/22/2004 4:15 EDT us Hilton Álvarez MD CHEMISTRY & BLOOD GAS ORDE RABLES Final Result Performing Organization Address [facility] de Phone Number [facility] [address] [place] [address] * (ABNORMAL) ALT (10/22/2004 4:15 EDT) ALT 222(H) 10 - 45 U/L [facility] Comment: Sample retested, result confirmed Heparinized plasma. 10/22/2004 4:15 EDT 10/22/2004 4:15 EDT us Hilton Álvarez MD CHEMISTRY & BLOOD GAS ORDE RABLES Final Result Performing Organization Address [facility] Co de Phone Number [facility] [address] [place] [address] * (ABNORMAL) ALKALINE PHOSPHATASE (10/22/2004 4:15 EDT) Total Alkaline Phosphatase 92(L) 130 - 525 U/L [facility] Comment:Heparinized plasma. 10/22/2004 4:15 EDT 10/22/2004 4:15 EDT Hilton Álvarez MD CHEMISTRY & BLOOD GAS ORDE [facility] Final Result Performing Organization Address [facility] Phone Number [facility] [address] [place] [address] * SODIUM (10/22/2004 1:58 EDT) Pathologist [facility] Sodium 144 136 - 145 mEq/L [facility] Comment:Heparinized plasma. 10/22/2004 1:58 EDT 10/22/2004 1:58 EDT Hilton Álvarez MD CHEMISTRY & BLOOD GAS ORDE [facility] Final Result Performing Organization Address [facility] Phone Number [facility] [address] [place] [address] * ELECTROLYTES (10/22/2004 0:05 EDT) Pathologist [facility] Sodium [...] Álvarez MD CHEMISTRY & BLOOD GAS ORDE [facility] Final Result Performing Organization Address [facility] Phone Number [facility] [address] [place] [address] * (ABNORMAL) GLUCOSE, GLUCOMETER (10/22/2004 0:01 EDT) Glucose, Fingerstick 132(H) 70 - 110 mg/dl [facility] Dietitian Consultant ID [id number] Test Performed by Nursing Services [facility] 10/22/2004 0:01 EDT 10/23/2004 1:02 EDT Hilton Álvarez MD CHEMISTRY & BLOOD GAS ORDE RABLES Final Result Performing Organization Address [facility] de Phone Number [facility] [address] [place] [address] * SODIUM (10/21/2004 22:04 EDT) Sodium 137 136 - 145 mEq/L [facility] 10/21/2004 22:0 4 EDT 10/21/2004 22:04 EDT Hilton Álvarez MD CHEMISTRY & BLOOD GAS ORDE RABLES Final Result Performing Organization Address [facility] de Phone Number [facility] [address] [place] [address] * (ABNORMAL) GLUCOSE, GLUCOMETER (10/21/2004 21:59 EDT) Glucose, Fingerstick 121(H) 70 - 110 mg/dl [facility] Dietitian Consultant ID [id number] Test Performed by Nursing Services [facility] 10/21/2004 21:5 9 EDT 10/22/2004 0:20 EDT Hilton Álvarez MD CHEMISTRY & BLOOD GAS ORDE RABLES Final Result Performing Organization Address [facility] de Phone Number [facility] [address] [place] [address] * (ABNORMAL) ELECTROLYTES (10/21/2004 19:46 EDT) Sodium [...] Result Performing Organization Address [facility] de Phone Number [facility] [address] [place] [address] * (ABNORMAL) GLUCOSE, GLUCOMETER (10/21/2004 18:19 EDT) Glucose, Fingerstick 129(H) 70 - 110 mg/dl [facility] Dietitian Consultant ID [id number] Test Performed by Nursing Services [facility] 10/21/2004 18:1 9 EDT 10/22/2004 0:26 EDT Hilton Álvarez MD CHEMISTRY & BLOOD GAS ORDE RABLES Final Result Performing Organization Address [facility] Co de Phone Number [facility] [address] [place] [address] * SODIUM (10/21/2004 18:18 EDT) Sodium 138 136 - 145 mEq/L [facility] 10/21/2004 18:1 8 EDT 10/21/2004 18:23 EDT Hilton Álvarez MD CHEMISTRY & BLOOD GAS ORDE RABLES Final Result Performing Organization Address [facility] de Phone Number [facility] [address] [place] [address] * ELECTROLYTES (10/21/2004 15:58 EDT) Sodium 138 [...] Final Result Performing Organization Address [facility] de Phone Number [facility] [address] [place] [address] * (ABNORMAL) SODIUM (10/21/2004 14:13 EDT) Sodium 132(L) 136 - 145 mEq/L [facility] Comment:Heparinized plasma. 10/21/2004 14:1 3 EDT 10/21/2004 14:13 EDT Hilton Álvarez MD CHEMISTRY & BLOOD GAS ORDE RABLES Final Result Performing Organization Address [facility] Phone Number [facility] [address] [place] [address] * (ABNORMAL) GLUCOSE, GLUCOMETER (10/21/2004 14:07 EDT) Glucose, Fingerstick 116(H) 70 - 110 mg/dl [facility] Dietitian Consultant ID [id number] Test Performed by Nursing Services [facility] 10/21/2004 14:0 7 EDT 10/22/2004 0:24 EDT Hilton Álvarez MD CHEMISTRY & BLOOD GAS ORDE RABLES Final Result Performing Organization Address [facility] de Phone Number [facility] [address] [place] [address] * (ABNORMAL) ELECTROLYTES (10/21/2004 12:00 EDT) Sodium [...] Result Performing Organization Address [facility] de Phone Number [facility] [address] [place] [address] * (ABNORMAL) SODIUM (10/21/2004 10:00 EDT) Sodium 133(L) 136 - 145 mEq/L [facility] Comment:Heparinized plasma. 10/21/2004 10:0 0 EDT 10/21/2004 10:05 EDT Hilton Álvarez MD CHEMISTRY & BLOOD GAS ORDE RABLES Final Result Performing Organization Address [facility] Phone Number [facility] [address] [place] [address] * (ABNORMAL) GLUCOSE, GLUCOMETER (10/21/2004 8:10 EDT) Glucose, Fingerstick 111(H) 70 - 110 mg/dl [facility] Dietitian Consultant ID [id number] Test Performed by Nursing Services [facility] 10/21/2004 8:10 EDT 10/22/2004 0:22 EDT Hilton Álvarez MD CHEMISTRY & BLOOD GAS ORDE RABLES Final Result Performing Organization Address [facility] de Phone Number [facility] [address] [place] [address] * (ABNORMAL) ELECTROLYTES (10/21/2004 8:00 EDT) Sodium [...] Final Result Performing Organization Address [facility] Phone Number [facility] [address] [place] [address] * (ABNORMAL) SODIUM (10/21/2004 6:05 EDT) Sodium 133(L) 136 - 145 mEq/L [facility] 10/21/2004 6:05 EDT 10/21/2004 6:05 EDT Hilton Álvarez MD CHEMISTRY & BLOOD GAS ORDE RABLES Final Result Performing Organization Address [facility] Phone Number [facility] [address] [place] [address] * (ABNORMAL) GLUCOSE, GLUCOMETER (10/21/2004 4:06 EDT) Glucose, Fingerstick 123(H) 70 - 110 mg/dl [facility] Dietitian Consultant ID [id number] Test Performed by Nursing Services [facility] 10/21/2004 4:06 EDT 10/22/2004 0:11 EDT Hilton Álvarez MD CHEMISTRY & BLOOD GAS ORDE RABLES Final Result Performing Organization Address [facility] Phone Number [facility] [address] [place] [address] * (ABNORMAL) ELECTROLYTES (10/21/2004 4:06 EDT) Sodium 133(L) 136 - 145 mEq/L [facility] Potassium 4.0 3.6 - 5.2 mEq/L [facility] Chloride 98 96 - 110 mEq/L [facility] CO2 28 24 - 32 mEq/L [facility] 10/21/2004 4:06 EDT 10/21/2004 4:06 EDT Hilton Álvarez MD CHEMISTRY & BLOOD GAS ORDE RABLES Final Result Performing Organization Address City/[facility]/ZIP Co de Phone Number [facility] [address] [place] [address] * CREATININE (10/21/2004 4:06 EDT) Creatinine 0.7 0.6 - 1.2 mg/dl [facility] 10/21/2004 4:06 EDT 10/21/2004 4:06 EDT Hilton Álvarez MD HISTORICAL LAB FOR SQ LOAD Final Result Performing Organization Address [facility] Co de Phone Number [facility] [address] [place] [address] * (ABNORMAL) HEMAGRAM AND DIFFERENTIAL (10/21/2004 4:06 [...] LYNDSEY Final Result Performing Organization Address [facility] de Phone Number [facility] [address] [place] [address] * BUN (10/21/2004 4:06 EDT) BUN 13 8 - 21 mg/dl [facility] 10/21/2004 4:06 EDT 10/21/2004 4:06 EDT Hilton Álvarez MD CHEMISTRY & BLOOD GAS ORDE RABREBECA Final Result Performing Organization Address [facility] de Phone Number [facility] [address] [place] [address] * (ABNORMAL) SODIUM (10/21/2004 2:01 EDT) Sodium 134(L) 136 - 145 mEq/L [facility] 10/21/2004 2:01 EDT 10/21/2004 2:01 EDT us Hilton Álvarez MD CHEMISTRY & BLOOD GAS ORDE RABLES Final Result Performing Organization Address [facility] de Phone Number [facility] [address] [place] [address] * SODIUM (10/20/2004 22:07 EDT) Sodium 140 136 - 145 mEq/L [facility] 10/20/2004 22:0 7 EDT 10/20/2004 22:07 EDT Hilton Álvarez MD CHEMISTRY & BLOOD GAS ORDE RABLES Final Result Performing Organization Address [facility] de Phone Number [facility] [address] [place] [address] * (ABNORMAL) GLUCOSE, GLUCOMETER (10/20/2004 22:00 EDT) Glucose, Fingerstick 151(H) 70 - 110 mg/dl [facility] Dietitian Consultant ID [id number] Test Performed by Nursing Services [facility] 10/20/2004 22:0 0 EDT 10/20/2004 23:06 EDT Hilton Álvarez MD CHEMISTRY & BLOOD GAS ORDE RABLES Final Result Performing Organization Address [facility] de Phone Number [facility] [address] [place] [address] * ELECTROLYTES (10/20/2004 20:08 EDT) Sodium 136 136 - 145 mEq/L [facility] Potassium 3.8 3.6 - 5.2 mEq/L [facility] Chloride 101 96 - 110 mEq/L [facility] CO2 28 24 - 32 mEq/L [facility] 10/20/2004 20:0 8 EDT 10/20/2004 20:08 EDT Hilton Álvarez MD CHEMISTRY & BLOOD GAS ORDE RABLES Final Result Performing Organization Address [facility] de Phone Number [facility] [address] [place] [address] * (ABNORMAL) GLUCOSE, GLUCOMETER (10/20/2004 20:05 EDT) Glucose, Fingerstick 219(H) 70 - 110 mg/dl [facility] Dietitian Consultant ID [id number] Test Performed by Nursing Services [facility] 10/20/2004 20:0 5 EDT 10/20/2004 21:43 EDT Hilton Álvarez MD CHEMISTRY & BLOOD GAS ORDE RABLES Final Result Performing Organization Address [facility]/State/ZIP Co de Phone Number [facility] [address] [place] [address] * SODIUM (10/20/2004 18:00 EDT) Sodium 140 136 - 145 mEq/L [facility] 10/20/2004 18:0 0 EDT 10/20/2004 18:07 EDT Hilton Álvarez MD CHEMISTRY & BLOOD GAS ORDE RABLES Final Result Performing Organization Address [facility] Co de Phone Number [facility] [address] [place] [address] * (ABNORMAL) ELECTROLYTES (10/20/2004 16:00 EDT) Sodium [...] Result Performing Organization Address [facility] Co de Phone Number [facility] [address] [place] [address] * SODIUM (10/20/2004 14:00 EDT) Sodium 140 136 - 145 mEq/L [facility] 10/20/2004 14:0 0 EDT 10/20/2004 14:14 EDT Hilton Álvarez MD CHEMISTRY & BLOOD GAS ORDE RABLES Final Result Performing Organization Address [facility] Co de Phone Number [facility] [address] [place] [address] * (ABNORMAL) ELECTROLYTES (10/20/2004 12:42 EDT) Sodium [...] Result Performing Organization Address [facility] Co de Phone Number [facility] [address] [place] [address] * SODIUM (10/20/2004 10:00 EDT) Sodium 143 136 - 145 mEq/L [facility] 10/20/2004 10:0 0 EDT 10/20/2004 10:28 EDT Hilton Álvarez MD CHEMISTRY & BLOOD GAS ORDE RABLES Final Result Performing Organization Address [facility] de Phone Number [facility] [address] [place] [address] * (ABNORMAL) ELECTROLYTES (10/20/2004 8:21 EDT) Sodium [...] Result Performing Organization Address [facility] Co de Phone Number [facility] [address] [place] [address] * SODIUM (10/20/2004 6:06 EDT) Sodium 143 136 - 145 mEq/L [facility] 10/20/2004 6:06 EDT 10/20/2004 6:06 EDT Hilton Álvarez MD CHEMISTRY & BLOOD GAS HERMES HANNON Final Result Performing Organization Address City/[facility]/ZIP Co de Phone Number [facility] [address] [place] [address] * TOTAL & DIRECT BILIRUBIN (10/20/2004 4:00 EDT) Conjugated Bilirubin 0.0 0.0 - 0.3 mg/dl [facility] Unconjugated Bilirubin 0.3 0.1 - 1.1 mg/dl [facility] Bilirubin, Total <0.5 0.0 - 1.4 mg/dl [facility] 10/20/2004 4:00 EDT 10/20/2004 4:00 EDT Hilton Álvarez MD CHEMISTRY & BLOOD GAS HERMES HANNON Final Result Performing Organization Address City/[facility]/ZIP Co de Phone Number [facility] [address] [place] [address] * TOTAL BILIRUBIN (10/20/2004 4:00 EDT) Bilirubin, Total 0.0 - 1.4 mg/dl [facility] 10/20/2004 4:00 EDT 10/20/2004 4:00 EDT Hilton Álvarez MD CHEMISTRY & BLOOD GAS HERMES HANNON Final Result [facility] [address] [place] [address] * PHOSPHORUS (10/20/2004 4:00 EDT) Phosphorus 3.4 2.9 - 5.4 mg/dl [facility] 10/20/2004 4:00 EDT 10/20/2004 4:00 EDT us Hilton Álvarez MD CHEMISTRY & BLOOD GAS ORDE RABLES Final Result Performing Organization Address [facility] de Phone Number [facility] [address] [place] [address] * MAGNESIUM (10/20/2004 4:00 EDT) Magnesium 2.5 1.7 - 2.8 mg/dl [facility] 10/20/2004 4:00 EDT 10/20/2004 4:00 EDT us Hilton Álvarez MD CHEMISTRY & BLOOD GAS ORDE RABLES Final Result Performing Organization Address [facility] Phone Number [facility] [address] [place] [address] * (ABNORMAL) ELECTROLYTES (10/20/2004 4:00 EDT) Sodium 145 136 - 145 mEq/L [facility] Potassium 3.8 3.6 - 5.2 mEq/L [facility] Chloride 111(H) 96 - 110 mEq/L [facility] CO2 28 24 - 32 mEq/L [facility] 10/20/2004 4:00 EDT 10/20/2004 4:00 EDT us Hilton Álvarez MD CHEMISTRY & BLOOD GAS ORDE RABLES Final Result Performing Organization Address [facility] de Phone Number [facility] [address] [place] [address] * CREATININE (10/20/2004 4:00 EDT) Creatinine 0.7 0.6 - 1.2 mg/dl [facility] 10/20/2004 4:00 EDT 10/20/2004 4:00 EDT us Hilton Álvarez MD HISTORICAL LAB FOR SQ LOAD Final Result Performing Organization Address City/[facility]/ZIP Co de Phone Number [facility] [address] [place] [address] * (ABNORMAL) HEMAGRAM AND DIFFERENTIAL (10/20/2004 4:00 [...] ORDER LYNDSEY Final Result Performing Organization Address City/[facility] Co de Phone Number [facility] [address] [place] [address] * (ABNORMAL) CALCIUM (10/20/2004 4:00 EDT) Calcium 7.9(L) 8.5 - 10.5 mg/dl [facility] Calculated Calcium 9.4 8.5 - 10.5 mg/dl [facility] 10/20/2004 4:00 EDT 10/20/2004 4:00 EDT Hilton Álvarez MD CHEMISTRY & BLOOD GAS ORDE RABLES Final Result Performing Organization Address [facility] Co de Phone Number [facility] [address] [place] [address] * BUN (10/20/2004 4:00 EDT) BUN 15 8 - 21 mg/dl [facility] 10/20/2004 4:00 EDT 10/20/2004 4:00 EDT Hilton Álvarez MD CHEMISTRY & BLOOD GAS ORDE RABLES Final Result Performing Organization Address [facility] de Phone Number [facility] [address] [place] [address] * AST (10/20/2004 4:00 EDT) AST 27 16 - 38 U/L [facility] 10/20/2004 4:00 EDT 10/20/2004 4:00 EDT Hilton Álvarez MD CHEMISTRY & BLOOD GAS ORDE RABLES Final Result Performing Organization Address [facility] de Phone Number [facility] [address] [place] [address] * (ABNORMAL) ALT (10/20/2004 4:00 EDT) ALT 50(H) 10 - 45 U/L [facility] 10/20/2004 4:00 EDT 10/20/2004 4:00 EDT us Hilton Álvarez MD CHEMISTRY & BLOOD GAS ORDE RABLES Final Result Performing Organization Address [facility] Co de Phone Number [facility] [address] [place] [address] * (ABNORMAL) ALKALINE PHOSPHATASE (10/20/2004 4:00 EDT) Total Alkaline Phosphatase 91(L) 130 - 525 U/L [facility] 10/20/2004 4:00 EDT 10/20/2004 4:00 EDT Hilton Álvarez MD CHEMISTRY & BLOOD GAS ORDE RABLES Final Result Performing Organization Address [facility] de Phone Number [facility] [address] [place] [address] * (ABNORMAL) GLUCOSE, GLUCOMETER (10/20/2004 3:53 EDT) Glucose, Fingerstick 183(H) 70 - 110 mg/dl [facility] Dietitian Consultant ID [id number] Test Performed by Nursing Services [facility] 10/20/2004 3:53 EDT 10/21/2004 0:38 EDT Hilton Álvarez MD CHEMISTRY & BLOOD GAS ORDE RABLES Final Result Performing Organization Address [facility] de Phone Number [facility] [address] [place] [address] * SODIUM (10/20/2004 2:07 EDT) Sodium 143 136 - 145 mEq/L [facility] 10/20/2004 2:07 EDT 10/20/2004 2:07 EDT Hilton Álvarez MD CHEMISTRY & BLOOD GAS ORDE RABLES Final Result Performing Organization Address [facility] de Phone Number [facility] [address] [place] [address] * (ABNORMAL) ELECTROLYTES (10/20/2004 0:08 EDT) Sodium [...] Result Performing Organization Address [facility] de Phone Number [facility] [address] [place] [address] * (ABNORMAL) ELECTROLYTES (10/20/2004 0:04 EDT) Sodium [...] Result Performing Organization Address [facility] de Phone Number [facility] [address] [place] [address] * (ABNORMAL) GLUCOSE, GLUCOMETER (10/20/2004 0:02 EDT) Glucose, Fingerstick 139(H) 70 - 110 mg/dl [facility] Dietitian Consultant ID [id number] Test Performed by Nursing Services [facility] 10/20/2004 0:02 EDT 10/20/2004 21:53 EDT Hilton Álvarez MD CHEMISTRY & BLOOD GAS ORDE RABLES Final Result Performing Organization Address [facility] de Phone Number [facility] [address] [place] [address] * (ABNORMAL) SODIUM (10/19/2004 22:12 EDT) Sodium 147(H) 136 - 145 mEq/L [facility] 10/19/2004 22:1 2 EDT 10/19/2004 22:12 EDT Hilton Álvarez MD CHEMISTRY & BLOOD GAS ORDE RABREBECA Final Result Performing Organization Address [facility] de Phone Number [facility] [address] [place] [address] * (ABNORMAL) ELECTROLYTES (10/19/2004 20:00 EDT) Sodium [...] ORDE RIDDHI Final Result Performing Organization Address [facility] Phone Number [facility] [address] [place] [address] * (ABNORMAL) GLUCOSE, GLUCOMETER (10/19/2004 19:55 EDT) Glucose, Fingerstick 165(H) 70 - 110 mg/dl [facility] Dietitian Consultant ID [id number] Test Performed by Nursing Services [facility] 10/19/2004 19:5 5 EDT 10/19/2004 23:17 EDT Hilton Álvarez MD CHEMISTRY & BLOOD GAS ORDE RABREBECA Final Result Performing Organization Address [facility] Phone Number [facility] [address] [place] [address] * (ABNORMAL) SODIUM (10/19/2004 18:27 EDT) Sodium 149(H) 136 - 145 mEq/L [facility] 10/19/2004 18:2 7 EDT 10/19/2004 18:27 EDT Hilton Álvarez MD CHEMISTRY & BLOOD GAS ORDE RIDDHI Final Result Performing Organization Address [facility] de Phone Number [facility] [address] [place] [address] * GLUCOSE, SERUM (10/19/2004 16:52 EDT) Glucose, Serum 90 70 - 110 mg/dl [facility] 10/19/2004 16:5 2 EDT 10/19/2004 16:52 EDT us Hilton Álvarez MD CHEMISTRY & BLOOD GAS ORDE RIDDHI Final Result Performing Organization Address [facility] de Phone Number [facility] [address] [place] [address] * (ABNORMAL) ELECTROLYTES (10/19/2004 16:52 EDT) Sodium 146(H) 136 - 145 mEq/L [facility] Potassium 3.9 3.6 - 5.2 mEq/L [facility] Chloride 115(H) 96 - 110 mEq/L [facility] CO2 25 24 - 32 mEq/L [facility] 10/19/2004 16:5 2 EDT 10/19/2004 16:52 EDT Hilton Álvarez MD CHEMISTRY & BLOOD GAS ORDEmerald HANNON Final Result Performing Organization Address [facility] de Phone Number [facility] [address] [place] [address] * SODIUM (10/19/2004 14:25 EDT) Sodium 143 136 - 145 mEq/L [facility] 10/19/2004 14:2 5 EDT 10/19/2004 14:25 EDT Hilton Álvarez MD CHEMISTRY & BLOOD GAS ORDE RABREBECA Final Result Performing Organization Address [facility]/ZIP Co de Phone Number [facility] [address] [place] [address] * ELECTROLYTES (10/19/2004 12:09 EDT) Sodium 139 [...] Result Performing Organization Address [facility] Co de Phone Number [facility] [address] [place] [address] * SODIUM (10/19/2004 10:17 EDT) Sodium 139 136 - 145 mEq/L [facility] Comment:Heparinized plasma. 10/19/2004 10:1 7 EDT 10/19/2004 10:17 EDT Hilton Álvarez MD CHEMISTRY & BLOOD GAS ORDE RABLES Final Result Performing Organization Address [facility] de Phone Number [facility] [address] [place] [address] * ELECTROLYTES (10/19/2004 8:20 EDT) Sodium 137 136 - 145 mEq/L [facility] Potassium 4.2 3.6 - 5.2 mEq/L [facility] Chloride 103 96 - 110 mEq/L [facility] CO2 25 24 - 32 mEq/L [facility] 10/19/2004 8:20 EDT 10/19/2004 8:20 EDT Hilton Álvarez MD CHEMISTRY & BLOOD GAS ORDE RABLES Final Result Performing Organization Address City/State/[facility] Co de Phone Number [facility] [address] [place] [address] * OSMOLALITY, URINE (10/19/2004 6:54 EDT) Osmolality, Ur 874 MOS/KG [facility] 10/19/2004 6:54 EDT 10/19/2004 6:54 EDT Hilton Álvarez MD URINALYSIS ORDERABLES Jacquie l Result Performing Organization Address [facility]/ZIP Co de Phone Number [facility] [address] [place] [address] * SODIUM, URINE RANDOM (10/19/2004 6:54 EDT) Sodium, Ur 201.0 mEq/L [facility] 10/19/2004 6:54 EDT 10/19/2004 6:54 EDT Hilton Álvarez MD URINALYSIS ORDERABLES Jacquie l Result Performing Organization Address [facility] de Phone Number [facility] [address] [place] [address] * GLUCOSE, SERUM (10/19/2004 6:21 EDT) Pathologist [facility] Glucose, Serum 81 70 - 110 mg/dl [facility] Comment:Heparinized plasma. 10/19/2004 6:21 EDT 10/19/2004 6:21 EDT Hilton Álvarez MD CHEMISTRY & BLOOD GAS HERMES HANNON Final Result Performing Organization Address [facility] Co de Phone Number [facility] [address] [place] [address] * OSMOLALITY (10/19/2004 6:21 EDT) Osmolality Cintia 285 MOS/KG [facility] 10/19/2004 6:21 EDT 10/19/2004 6:21 EDT Hilton Álvarez MD CHEMISTRY & BLOOD GAS ORDE RABLES Final Result Performing Organization Address [facility] de Phone Number [facility] [address] [place] [address] * (ABNORMAL) ELECTROLYTES (10/19/2004 6:21 EDT) Sodium 137 136 - 145 mEq/L [facility] Comment:Heparinized plasma. Potassium 3.9 3.6 - 5.2 mEq/L [facility] Comment:Heparinized plasma. Chloride 110 96 - 110 mEq/L [facility] Comment: Sample retested, result confirmed Heparinized plasma. CO2 20(L) 24 - 32 mEq/L [facility] Comment:Heparinized plasma. 10/19/2004 6:21 EDT 10/19/2004 6:21 EDT Hilton Álvarez MD CHEMISTRY & BLOOD GAS ORDE RABLES Final Result Performing Organization Address [facility] de Phone Number [facility] [address] [place] [address] * (ABNORMAL) GLUCOSE, SERUM (10/19/2004 4:25 EDT) Glucose, Serum 60(L) 70 - 110 mg/dl [facility] Comment:Heparinized plasma. 10/19/2004 4:25 EDT 10/19/2004 4:25 EDT Hilton Álvarez MD CHEMISTRY & BLOOD GAS ORDE RABLES Final Result Performing Organization Address [facility] de Phone Number [facility] [address] [place] [address] * (ABNORMAL) ELECTROLYTES (10/19/2004 4:25 EDT) Sodium [...] ORDEmerald HANNON Final Result Performing Organization Address [facility] Co de Phone Number [facility] [address] [place] [address] * TOTAL & DIRECT BILIRUBIN (10/19/2004 2:10 EDT) Conjugated Bilirubin 0.0 0.0 - 0.3 mg/dl [facility] Unconjugated Bilirubin 0.3 0.1 - 1.1 mg/dl [facility] Bilirubin, Total <0.5 0.0 - 1.4 mg/dl [facility] 10/19/2004 2:10 EDT 10/19/2004 2:10 EDT Hilton Álvarez MD CHEMISTRY & BLOOD GAS HERMES HANNON Final Result Performing Organization Address [facility] Co de Phone Number [facility] [address] [place] [address] * PHOSPHORUS (10/19/2004 2:10 EDT) Phosphorus 4.4 2.9 - 5.4 mg/dl [facility] 10/19/2004 2:10 EDT 10/19/2004 2:10 EDT Hilton Álvarez MD CHEMISTRY & BLOOD GAS ORDEmerald HANNON Final Result Performing Organization Address City/[facility] Co de Phone Number [facility] [address] [place] [address] * MAGNESIUM (10/19/2004 2:10 EDT) Magnesium 2.4 1.7 - 2.8 mg/dl [facility] 10/19/2004 2:10 EDT 10/19/2004 2:10 EDT Hilton Álvarez MD CHEMISTRY & BLOOD GAS ORDE RABLES Final Result Performing Organization Address [facility] de Phone Number [facility] [address] [place] [address] * ELECTROLYTES (10/19/2004 2:10 EDT) Sodium 137 136 - 145 mEq/L [facility] Potassium 4.1 3.6 - 5.2 mEq/L [facility] Chloride 101 96 - 110 mEq/L [facility] Comment:Sample retested, res ult confirmed CO2 26 24 - 32 mEq/L [facility] 10/19/2004 2:10 EDT 10/19/2004 2:10 EDT Hilton Álvarez MD CHEMISTRY & BLOOD GAS ORDE [facility] Final Result Performing Organization Address [facility] de Phone Number [facility] [address] [place] [address] * CREATININE (10/19/2004 2:10 EDT) Creatinine 0.7 0.6 - 1.2 mg/dl [facility] 10/19/2004 2:10 EDT 10/19/2004 2:10 EDT Hilton Álvarez MD HISTORICAL LAB FOR SQ LOAD Final Result Performing Organization Address [facility] de Phone Number [facility] [address] [place] [address] * (ABNORMAL) HEMAGRAM AND DIFFERENTIAL (10/19/2004 2:10 [...] ORDER LYNDSEY Final Result Performing Organization Address City/[facility] Co de Phone Number [facility] [address] [place] [address] * (ABNORMAL) CALCIUM (10/19/2004 2:10 EDT) Calcium 8.0(L) 8.5 - 10.5 mg/dl [facility] Calculated Calcium 8.8 8.5 - 10.5 mg/dl [facility] 10/19/2004 2:10 EDT 10/19/2004 2:10 EDT us Hilton Álvarez MD CHEMISTRY & BLOOD GAS ORDE RABLES Final Result Performing Organization Address City/[facility] Co de Phone Number [facility] [address] [place] [address] * BUN (10/19/2004 2:10 EDT) BUN 14 8 - 21 mg/dl [facility] 10/19/2004 2:10 EDT 10/19/2004 2:10 EDT Hilton Álvarez MD CHEMISTRY & BLOOD GAS ORDE RIDDHI Final Result Performing Organization Address [facility]/State/ZIP Co de Phone Number [facility] [address] [place] [address] * AST (10/19/2004 2:10 EDT) AST 27 16 - 38 U/L [facility] 10/19/2004 2:10 EDT 10/19/2004 2:10 EDT Hilton Álvarez MD CHEMISTRY & BLOOD GAS ORDE RABREBECA Final Result Performing Organization Address [facility] Co de Phone Number [facility] [address] [place] [address] * (ABNORMAL) ALT (10/19/2004 2:10 EDT) ALT 50(H) 10 - 45 U/L [facility] 10/19/2004 2:10 EDT 10/19/2004 2:10 EDT Hilton Álvarez MD CHEMISTRY & BLOOD GAS ORDE RABREBECA Final Result Performing Organization Address [facility] de Phone Number [facility] [address] [place] [address] * (ABNORMAL) ALKALINE PHOSPHATASE (10/19/2004 2:10 EDT) Total Alkaline Phosphatase 103(L) 130 - 525 U/L [facility] 10/19/2004 2:10 EDT 10/19/2004 2:10 EDT us Hilton Álvarez MD CHEMISTRY & BLOOD GAS ORDE RABREBECA Final Result Performing Organization Address [facility] Co de Phone Number [facility] [address] [place] [address] * (ABNORMAL) ELECTROLYTES (10/19/2004 0:12 EDT) Sodium 137 136 - 145 mEq/L [facility] Comment:Heparinized plasma. Potassium 3.6 3.6 - 5.2 mEq/L [facility] Comment: Hemolysis may elevate potassium result. Slight hemolysis Heparinized plasma. Chloride 113(H) 96 - 110 mEq/L [facility] Comment: Sample retested, result confirmed Heparinized plasma. CO2 18(L) 24 - 32 mEq/L [facility] Comment:Heparinized plasma. 10/19/2004 0:12 EDT 10/19/2004 0:12 EDT Hilton Álvarez MD CHEMISTRY & BLOOD GAS ORDE RABLES Final Result Performing Organization Address [facility] Co de Phone Number [facility] [address] [place] [address] * SODIUM (10/18/2004 22:11 EDT) Sodium 137 136 - 145 mEq/L [facility] 10/18/2004 22:1 1 EDT 10/18/2004 22:11 EDT Hilton Álvarez MD CHEMISTRY & BLOOD GAS ORDE RABLES Final Result Performing Organization Address [facility] de Phone Number [facility] [address] [place] [address] * (ABNORMAL) ELECTROLYTES (10/18/2004 20:13 EDT) Sodium [...] Result Performing Organization Address [facility] Co de Phone Number [facility] [address] [place] [address] * GLUCOSE, GLUCOMETER (10/18/2004 20:06 EDT) Glucose, Fingerstick 89 70 - 110 mg/dl [facility] Dietitian Consultant ID [id number] Test Performed by Nursing Services [facility] 10/18/2004 20:0 6 EDT 10/19/2004 0:23 EDT Hilton Álvarez MD CHEMISTRY & BLOOD GAS ORDE RABLES Final Result Performing Organization Address [facility] de Phone Number [facility] [address] [place] [address] * (ABNORMAL) SODIUM (10/18/2004 18:15 EDT) Sodium 128(L) 136 - 145 mEq/L [facility] 10/18/2004 18:1 5 EDT 10/18/2004 18:15 EDT Hilton Álvarez MD CHEMISTRY & BLOOD GAS ORDE RABLES Final Result Performing Organization Address [facility] de Phone Number [facility] [address] [place] [address] * (ABNORMAL) ELECTROLYTES (10/18/2004 16:08 EDT) Sodium [...] Result Performing Organization Address [facility] de Phone Number [facility] [address] [place] [address] * GLUCOSE, GLUCOMETER (10/18/2004 16:00 EDT) Glucose, Fingerstick 106 70 - 110 mg/dl [facility] Dietitian Consultant ID [id number] Test Performed by Nursing Services [facility] 10/18/2004 16:0 0 EDT 10/19/2004 0:23 EDT Hilton Álvarez MD CHEMISTRY & BLOOD GAS ORDE RABLES Final Result Performing Organization Address [facility] Phone Number [facility] [address] [place] [address] * (ABNORMAL) SODIUM (10/18/2004 14:37 EDT) Sodium 128(L) 136 - 145 mEq/L [facility] 10/18/2004 14:3 7 EDT 10/18/2004 14:37 EDT Hilton Álvarez MD CHEMISTRY & BLOOD GAS ORDE RABLES Final Result Performing Organization Address [facility] Phone Number [facility] [address] [place] [address] * GLUCOSE, GLUCOMETER (10/18/2004 11:59 EDT) Glucose, Fingerstick 98 70 - 110 mg/dl [facility] Dietitian Consultant ID [id number] Test Performed by Nursing Services [facility] 10/18/2004 11:5 9 EDT 10/19/2004 0:22 EDT Hilton Álvarez MD CHEMISTRY & BLOOD GAS ORDE RABLES Final Result Performing Organization Address [facility] de Phone Number [facility] [address] [place] [address] * (ABNORMAL) ELECTROLYTES (10/18/2004 11:56 EDT) Sodium 127(L) 136 - 145 mEq/L [facility] Potassium 3.9 3.6 - 5.2 mEq/L [facility] Chloride 92(L) 96 - 110 mEq/L [facility] CO2 29 24 - 32 mEq/L [facility] 10/18/2004 11:5 6 EDT 10/18/2004 11:56 EDT Hilton Álvarez MD CHEMISTRY & BLOOD GAS ORDE RABLES Final Result Performing Organization Address [facility] de Phone Number [facility] [address] [place] [address] * (ABNORMAL) GLUCOSE, GLUCOMETER (10/18/2004 10:07 EDT) Glucose, Fingerstick 130(H) 70 - 110 mg/dl [facility] Dietitian Consultant ID [id number] Test Performed by Nursing Services [facility] 10/18/2004 10:0 7 EDT 10/19/2004 0:21 EDT Hilton Álvarez MD CHEMISTRY & BLOOD GAS ORDE RABLES Final Result Performing Organization Address [facility] de Phone Number [facility] [address] [place] [address] * (ABNORMAL) SODIUM (10/18/2004 10:06 EDT) Sodium 128(L) 136 - 145 mEq/L [facility] Comment:Heparinized plasma. 10/18/2004 10:0 6 EDT 10/18/2004 10:06 EDT Hilton Álvarez MD CHEMISTRY & BLOOD GAS ORDE RABLES Final Result Performing Organization Address [facility] de Phone Number [facility] [address] [place] [address] * (ABNORMAL) ELECTROLYTES (10/18/2004 8:18 EDT) Sodium [...] Result Performing Organization Address [facility] Co de Phone Number [facility] [address] [place] [address] * UA REFLEX (10/18/2004 7:59 EDT) UA Billing Microscopic not indicated. [facility] 10/18/2004 7:59 EDT 10/18/2004 7:59 EDT Hilton Álvarez MD URINALYSIS ORDERABLES Jacquie l Result Performing Organization Address [facility] Phone Number [facility] [address] [place] [address] * URINALYSIS (10/18/2004 7:59 EDT) Color, UA Yellow [facility] Clarity, UA Cloudy [facility] Glucose, UA Norm NORM [facility] Bilirubin, UA Neg NEG TRUE [facility] Ketones, UA Neg NEG [facility] Specific [place], Urine 1.020 1.005 - 1.02 [facility] [...] l Result Performing Organization Address [facility] de Phone Number [facility] [address] [place] [address] * CULTURE IF UA POSITIVE (10/18/2004 7:59 EDT) Culture if Indicated Culture not indicated by urinalysis results. [facility] 10/18/2004 7:59 EDT 10/18/2004 7:59 EDT Hilton Álvarez MD MICROBIOLOGY - GENERAL ORD ERABLES Final Result Performing Organization Address [facility] Co de Phone Number [facility] [address] [place] [address] * (ABNORMAL) SODIUM (10/18/2004 6:38 EDT) Sodium 130(L) 136 - 145 mEq/L [facility] Comment:Heparinized plasma. 10/18/2004 6:38 EDT 10/18/2004 6:38 EDT Hilton Álvarez MD CHEMISTRY & BLOOD GAS ORDE RABLES Final Result Performing Organization Address [facility] Co de Phone Number [facility] [address] [place] [address] * TOTAL & DIRECT BILIRUBIN (10/18/2004 4:23 EDT) Conjugated Bilirubin 0.0 0.0 - 0.3 mg/dl [facility] Unconjugated Bilirubin 0.2 0.1 - 1.1 mg/dl [facility] Bilirubin, Total <0.5 0.0 - 1.4 mg/dl [facility] 10/18/2004 4:23 EDT 10/18/2004 4:23 EDT Hilton Álvarez MD CHEMISTRY & BLOOD GAS ORDE RABLES Final Result Performing Organization Address City/[facility] Co de Phone Number [facility] [address] [place] [address] * PHOSPHORUS (10/18/2004 4:23 EDT) Phosphorus 3.3 2.9 - 5.4 mg/dl [facility] 10/18/2004 4:23 EDT 10/18/2004 4:23 EDT Hilton Álvarez MD CHEMISTRY & BLOOD GAS ORDE RABREBECA Final Result Performing Organization Address [facility] de Phone Number [facility] [address] [place] [address] * MAGNESIUM (10/18/2004 4:23 EDT) Magnesium 2.1 1.7 - 2.8 mg/dl [facility] 10/18/2004 4:23 EDT 10/18/2004 4:23 EDT Hilton Álvarez MD CHEMISTRY & BLOOD GAS ORDE RABLES Final Result Performing Organization Address [facility] Phone Number [facility] [address] [place] [address] * (ABNORMAL) ELECTROLYTES (10/18/2004 4:23 EDT) Sodium [...] Result Performing Organization Address [facility] de Phone Number [facility] [address] [place] [address] * CREATININE (10/18/2004 4:23 EDT) Creatinine 0.6 0.6 - 1.2 mg/dl [facility] 10/18/2004 4:23 EDT 10/18/2004 4:23 EDT Hilton Álvarez MD HISTORICAL LAB FOR SQ LOAD Final Result Performing Organization Address [facility] de Phone Number [facility] [address] [place] [address] * (ABNORMAL) HEMAGRAM AND DIFFERENTIAL (10/18/2004 4:23 EDT) Pathologist [facility] [place] WBC 10.96 4.5 - 13.0 K/cmm [facility] [...] LYNDSEY Final Result [facility] [address] [place] [address] * (ABNORMAL) CALCIUM (10/18/2004 4:23 EDT) Calcium 7.9(L) 8.5 - 10.5 mg/dl [facility] Calculated Calcium 9.0 8.5 - 10.5 mg/dl [facility] 10/18/2004 4:23 EDT 10/18/2004 4:23 EDT Hilton Álvarez MD CHEMISTRY & BLOOD GAS ORDE RABLES Final Result Performing Organization Address [facility] Co de Phone Number [facility] [address] [place] [address] * BUN (10/18/2004 4:23 EDT) BUN 16 8 - 21 mg/dl [facility] 10/18/2004 4:23 EDT 10/18/2004 4:23 EDT us Hilton Álvarez MD CHEMISTRY & BLOOD GAS ORDE RABLES Final Result Performing Organization Address [facility] de Phone Number [facility] [address] [place] [address] * AST (10/18/2004 4:23 EDT) AST 24 16 - 38 U/L [facility] 10/18/2004 4:23 EDT 10/18/2004 4:23 EDT us Hilton Álvarez MD CHEMISTRY & BLOOD GAS ORDE RABLES Final Result Performing Organization Address [facility] de Phone Number [facility] [address] [place] [address] * (ABNORMAL) ALT (10/18/2004 4:23 EDT) ALT 55(H) 10 - 45 U/L [facility] 10/18/2004 4:23 EDT 10/18/2004 4:23 EDT us Hilton Álvarez MD CHEMISTRY & BLOOD GAS ORDE RABLES Final Result Performing Organization Address [facility] Co de Phone Number [facility] [address] [place] [address] * (ABNORMAL) ALKALINE PHOSPHATASE (10/18/2004 4:23 EDT) Total Alkaline Phosphatase 100(L) 130 - 525 U/L [facility] 10/18/2004 4:23 EDT 10/18/2004 4:23 EDT Hilton Álvarez MD CHEMISTRY & BLOOD GAS ORDE RABLES Final Result Performing Organization Address [facility] de Phone Number [facility] [address] [place] [address] * (ABNORMAL) SODIUM (10/18/2004 2:13 EDT) Sodium 132(L) 136 - 145 mEq/L [facility] 10/18/2004 2:13 EDT 10/18/2004 2:13 EDT Hilton Álvarez MD CHEMISTRY & BLOOD GAS ORDE RABLES Final Result Performing Organization Address [facility] Phone Number [facility] [address] [place] [address] * (ABNORMAL) SODIUM (10/18/2004 1:00 EDT) Sodium 133(L) 136 - 145 mEq/L [facility] 10/18/2004 1:00 EDT 10/18/2004 1:00 EDT Hilton Álvarez MD CHEMISTRY & BLOOD GAS ORDE RABLES Final Result Performing Organization Address [facility] de Phone Number [facility] [address] [place] [address] * (ABNORMAL) BLOOD GAS, EG6 ISTAT (10/18/2004 [...] [facility] Sample Type Venous [facility]IS[facility] frozen foods manager ID [id number] Test Performed by Respiratory [facility] 10/18/2004 0:10 EDT 10/18/2004 0:06 EDT Hilton Álvarez MD CHEMISTRY & BLOOD GAS ORDE RABREBECA Final Result Performing Organization Address [facility] de Phone Number [facility] [address] [place] [address] * OSMOLALITY (10/18/2004 0:07 EDT) Osmolality Cintia 287 MOS/KG SHERI [facility] 10/18/2004 0:07 EDT 10/18/2004 0:07 EDT Hilton Álvarez MD CHEMISTRY & BLOOD GAS ORDE RABLES Final Result Performing Organization Address [facility] de Phone Number [facility] [address] [place] [address] * (ABNORMAL) ELECTROLYTES (10/18/2004 0:07 EDT) Sodium [...] Result Performing Organization Address [facility] de Phone Number [facility] [address] [place] [address] * (ABNORMAL) GLUCOSE, GLUCOMETER (10/18/2004 0:06 EDT) Pathologist [facility] [place] Glucose, Fingerstick 112(H) 70 - 110 mg/dl [facility] Dietitian Consultant ID [id number] Test Performed by Nursing Services [facility] 10/18/2004 0:06 EDT 10/19/2004 0:19 EDT Hilton Álvraez MD CHEMISTRY & BLOOD GAS ORDE RABLES Final Result Performing Organization Address [facility] de Phone Number [facility] [address] [place] [address] * (ABNORMAL) ELECTROLYTES (10/17/2004 22:42 EDT) Pathologist [facility] [place] Sodium 125(L) 136 - 145 mEq/L ANISHA [...] Final Result Performing Organization Address [facility] de Phone Number [facility] [address] [place] [address] * OSMOLALITY (10/17/2004 21:34 EDT) Pathologist [facility] Osmolality Cintia 342 MOS/KG SHERI [facility] Comment:Markedly lipemic 10/17/2004 21:3 4 EDT 10/17/2004 21:34 EDT Hilton Álvarez MD CHEMISTRY & BLOOD GAS ORDE RABLES Final Result Performing Organization Address [facility] de Phone Number [facility] [address] [place] [address] * (ABNORMAL) ELECTROLYTES (10/17/2004 21:34 EDT) Sodium [...] Álvarez MD CHEMISTRY & BLOOD GAS ORDE [facility] Final Result Performing Organization Address [facility] Co de Phone Number [facility] [address] [place] [address] * OSMOLALITY (10/17/2004 15:50 EDT) Osmolality Cintia 296 MOS/KG SH[facility]I [facility] 10/17/2004 15:5 0 EDT 10/17/2004 15:51 EDT Hilton Álvarez MD CHEMISTRY & BLOOD GAS ORDE RABLES Final Result Performing Organization Address [facility] Co de Phone Number [facility] [address] [place] [address] * (ABNORMAL) ELECTROLYTES (10/17/2004 15:50 EDT) Sodium [...] Result Performing Organization Address [facility] Co de Phone Number [facility] [address] [place] [address] * OSMOLALITY, URINE (10/17/2004 11:36 EDT) Osmolality, Ur 532 MOS/KG HOLLY [facility] 10/17/2004 11:3 6 EDT 10/17/2004 11:37 EDT Hilton Álvarez MD URINALYSIS ORDERABLES Jacquie l Result Performing Organization Address [facility] Co de Phone Number [facility] [address] [place] [address] * SODIUM, URINE RANDOM (10/17/2004 11:36 EDT) Sodium, Ur 199.0 mEq/L [facility] 10/17/2004 11:3 6 EDT 10/17/2004 11:37 EDT Hilton Álvarez MD URINALYSIS ORDERABLES Jacquie l Result Performing Organization Address [facility] de Phone Number [facility] [address] [place] [address] * OSMOLALITY (10/17/2004 11:35 EDT) Osmolality Cintia 305 MOS/KG SHERI [facility] 10/17/2004 11:3 5 EDT 10/17/2004 11:36 EDT Hilton Álvarez MD CHEMISTRY & BLOOD GAS ORDE RABLES Final Result Performing Organization Address [facility] Co de Phone Number [facility] [address] [place] [address] * (ABNORMAL) ELECTROLYTES (10/17/2004 11:35 EDT) Sodium [...] Álvarez MD CHEMISTRY & BLOOD GAS ORDEmerald [facility] Final Result [facility] [address] [place] [address] * CT HEAD WO CONTRAST (10/17/2004 11:04 [...] line to double-lumen. 2. Fluoroscopic guidance used. /[facility] Narrative 03/06/2009 9:00 EDT S/P CRANI S/L [...] l Result Performing Organization Address [facility] Co de Phone Number [facility] [address] [place] [address] * SODIUM, URINE RANDOM (10/17/2004 8:00 EDT) Sodium, Ur 66.0 mEq/L [facility] 10/17/2004 8:00 EDT 10/17/2004 8:04 EDT Hilton Álvarez MD URINALYSIS ORDERABLES Jacquie l Result Performing Organization Address [facility] Phone Number [facility] [address] [place] [address] * OSMOLALITY (10/17/2004 8:00 EDT) Osmolality Cintia 304 MOS/KG SHERI [facility] 10/17/2004 8:00 EDT 10/17/2004 8:05 EDT Hilton Álvarez MD CHEMISTRY & BLOOD GAS ORDE [facility] Final Result Performing Organization Address [facility] de Phone Number [facility] [address] [place] [address] * (ABNORMAL) ELECTROLYTES (10/17/2004 8:00 EDT) Sodium 143 136 - 145 mEq/L [facility] Potassium 3.6 3.6 - 5.2 mEq/L [facility] Chloride 111(H) 96 - 110 mEq/L [facility] CO2 26 24 - 32 mEq/L [facility] 10/17/2004 8:00 EDT 10/17/2004 8:05 EDT Hilton Álvarez MD CHEMISTRY & BLOOD GAS HERMES HANNON Final Result Performing Organization Address [facility] de Phone Number [facility] [address] [place] [address] * SODIUM (10/17/2004 6:13 EDT) Sodium 142 136 - 145 mEq/L [facility] 10/17/2004 6:13 EDT 10/17/2004 6:13 EDT Hilton Álvarez MD CHEMISTRY & BLOOD GAS ORDEmerald HANNON Final Result Performing Organization Address [facility] Phone Number [facility] [address] [place] [address] * OSMOLALITY, URINE (10/17/2004 3:58 EDT) Osmolality, Ur 578 MOS/KG MELONIETEA HER [facility] 10/17/2004 3:58 EDT 10/17/2004 3:58 EDT Hilton Álvarez MD URINALYSIS ORDERABLES Jacquie l Result Performing Organization Address [facility] Phone Number [facility] [address] [place] [address] * SODIUM, URINE RANDOM (10/17/2004 3:58 EDT) Sodium, Ur 175.0 mEq/L [facility] 10/17/2004 3:58 EDT 10/17/2004 3:58 EDT us Hilton Álvarez MD URINALYSIS ORDERABLES Jacquie l Result Performing Organization Address [facility] Phone Number [facility] [address] [place] [address] * TOTAL BILIRUBIN (10/17/2004 3:57 EDT) Bilirubin, Total <0.5 0.0 - 1.4 mg/dl [facility] 10/17/2004 3:57 EDT 10/17/2004 3:57 EDT Hilton Álvarez MD CHEMISTRY & BLOOD GAS ORDE RABLES Final Result Performing Organization Address [facility] Phone Number [facility] [address] [place] [address] * GLUCOSE, SERUM (10/17/2004 3:57 EDT) Glucose, Serum 96 70 - 110 mg/dl [facility] 10/17/2004 3:57 EDT 10/17/2004 3:57 EDT Hilton Álvarez MD CHEMISTRY & BLOOD GAS ORDE RABLES Final Result Performing Organization Address [facility] de Phone Number ANIH[facility] [address] [place] [address] * PTT (10/17/2004 3:57 EDT) Pathologist [facility] PTT 26 23 - 34 secs [facility] Comment:Therapeutic Heparin range: 72-120 seconds 10/17/2004 3:57 EDT 10/17/2004 3:57 EDT Hilton Álvarez MD HEMATOLOGY & PF4 ORDERABLE S Final Result Performing Organization Address [facility] Phone Number [facility] [address] [place] [address] * (ABNORMAL) PROTIME (10/17/2004 3:57 EDT) Pro [...] Result Performing Organization Address [facility]/ZIP Co de Phone Number [facility] [address] [place] [address] * PHOSPHORUS (10/17/2004 3:57 EDT) Phosphorus 3.8 2.9 - 5.4 mg/dl [facility] 10/17/2004 3:57 EDT 10/17/2004 3:57 EDT Hilton Álvarez MD CHEMISTRY & BLOOD GAS ORDE RABLES Final Result Performing Organization Address [facility] de Phone Number [facility] [address] [place] [address] * OSMOLALITY (10/17/2004 3:57 EDT) Osmolality Cintia 296 MOS/KG SHERI [facility] 10/17/2004 3:57 EDT 10/17/2004 3:57 EDT Hilton Álvarez MD CHEMISTRY & BLOOD GAS ORDE RABLES Final Result Performing Organization Address [facility] de Phone Number [facility] [address] [place] [address] * BILIRUBIN (10/17/2004 3:57 EDT) Conjugated Bilirubin 0.0 0.0 - 0.3 mg/dl [facility] Unconjugated Bilirubin 0.2 0.1 - 1.1 mg/dl [facility] Calculated Total Bilirubin 0.2 0.0 - 1.4 mg/dl [facility] 10/17/2004 3:57 EDT 10/17/2004 3:57 EDT Hilton Álvarez MD CHEMISTRY & BLOOD GAS ORDE RABLES Final Result Performing Organization Address [facility] Co de Phone Number [facility] [address] [place] [address] * ELECTROLYTES (10/17/2004 3:57 EDT) Sodium 141 136 - 145 mEq/L [facility] Potassium 3.7 3.6 - 5.2 mEq/L [facility] Chloride 105 96 - 110 mEq/L [facility] CO2 28 24 - 32 mEq/L [facility] 10/17/2004 3:57 EDT 10/17/2004 3:57 EDT us Hilton Álvarez MD CHEMISTRY & BLOOD GAS ORDE RABREBECA Final Result Performing Organization Address [facility] de Phone Number [facility] [address] [place] [address] * BILIRUBIN DIRECT/INDIRECT (10/17/2004 3:57 EDT) Conjugated Bilirubin 0.0 - 0.3 mg/dl [facility] Unconjugated Bilirubin 0.1 - 1.1 mg/dl [facility] 10/17/2004 3:57 EDT 10/17/2004 3:57 EDT Hilton Álvarez MD CHEMISTRY & BLOOD GAS ORDE RABLES Final Result Performing Organization Address [facility] de Phone Number [facility] [address] [place] [address] * CREATININE (10/17/2004 3:57 EDT) Creatinine 0.8 0.6 - 1.2 mg/dl [facility] 10/17/2004 3:57 EDT 10/17/2004 3:57 EDT Hilton Álvarez MD HISTORICAL LAB FOR SQ LOAD Final Result Performing Organization Address [facility] Co de Phone Number [facility] [address] [place] [address] * (ABNORMAL) HEMAGRAM AND DIFFERENTIAL (10/17/2004 3:57 [...] LYNDSEY Final Result [facility] [address] [place] [address] * (ABNORMAL) CALCIUM (10/17/2004 3:57 EDT) Calcium 7.9(L) 8.5 - 10.5 mg/dl [facility] Calculated Calcium 9.4 8.5 - 10.5 mg/dl [facility] 10/17/2004 3:57 EDT 10/17/2004 3:57 EDT us Hilton Álvarez MD CHEMISTRY & BLOOD GAS ORDE RABLES Final Result [facility] [address] [place] [address] * BUN (10/17/2004 3:57 EDT) BUN 17 8 - 21 mg/dl [facility] 10/17/2004 3:57 EDT 10/17/2004 3:57 EDT us Hilton Álvarez MD CHEMISTRY & BLOOD GAS ORDE RABLES Final Result Performing Organization Address [facility] Co de Phone Number [facility] [address] [place] [address] * AST (10/17/2004 3:57 EDT) AST 27 16 - 38 U/L [facility] 10/17/2004 3:57 EDT 10/17/2004 3:57 EDT us Hilton Álvarez MD CHEMISTRY & BLOOD GAS ORDE RABREBECA Final Result Performing Organization Address [facility] Co de Phone Number [facility] [address] [place] [address] * (ABNORMAL) ALT (10/17/2004 3:57 EDT) ALT 59(H) 10 - 45 U/L [facility] 10/17/2004 3:57 EDT 10/17/2004 3:57 EDT us Hilton Álvarez MD CHEMISTRY & BLOOD GAS ORDE RABLES Final Result Performing Organization Address [facility] Co de Phone Number [facility] [address] [place] [address] * (ABNORMAL) ALKALINE PHOSPHATASE (10/17/2004 3:57 EDT) Total Alkaline Phosphatase 91(L) 130 - 525 U/L [facility] 10/17/2004 3:57 EDT 10/17/2004 3:57 EDT Hilton Álvarez MD CHEMISTRY & BLOOD GAS HERMES HANNON Final Result Performing Organization Address [facility] Phone Number [facility] [address] [place] [address] * SODIUM (10/17/2004 1:56 EDT) Sodium 141 136 - 145 mEq/L [facility] 10/17/2004 1:56 EDT 10/17/2004 1:56 EDT Hilton Álvarez MD CHEMISTRY & BLOOD GAS HERMES HANNON Final Result Performing Organization Address [facility] Phone Number [facility] [address] [place] [address] * OSMOLALITY, URINE (10/17/2004 0:10 EDT) Osmolality, Ur 620 MOS/KG HOLLY [facility] 10/17/2004 0:10 EDT 10/17/2004 0:10 EDT Hilton Álvarez MD URINALYSIS ORDERABLES Jacquie l Result Performing Organization Address [facility] Phone Number [facility] [address] [place] [address] * SODIUM, URINE RANDOM (10/17/2004 0:10 EDT) Sodium, Ur 214.0 mEq/L [facility] 10/17/2004 0:10 EDT 10/17/2004 0:10 EDT us Hilton Álvarez MD URINALYSIS ORDERABLES Jacquie l Result Performing Organization Address [facility] Phone Number [facility] [address] [place] [address] * OSMOLALITY (10/17/2004 0:09 EDT) Osmolality Cintia 295 MOS/KG SHERI [facility] 10/17/2004 0:09 EDT 10/17/2004 0:09 EDT Hilton Álvarez MD CHEMISTRY & BLOOD GAS ORDE RABLES Final Result Performing Organization Address [facility] de Phone Number [facility] [address] [place] [address] * ELECTROLYTES (10/17/2004 0:09 EDT) Sodium 142 [...] Result Performing Organization Address [facility] de Phone Number [facility] [address] [place] [address] * SODIUM (10/16/2004 21:56 EDT) Sodium 141 136 - 145 mEq/L [facility] 10/16/2004 21:5 6 EDT 10/16/2004 21:56 EDT Hilton Álvarez MD CHEMISTRY & BLOOD GAS ORDE RABLES Final Result Performing Organization Address [facility] de Phone Number [facility] [address] [place] [address] * SODIUM, URINE RANDOM (10/16/2004 20:15 EDT) Sodium, Ur 190.0 mEq/L [facility] 10/16/2004 20:1 5 EDT 10/16/2004 20:15 EDT Hilton Álvarez MD URINALYSIS ORDERABLES Jacquie l Result Performing Organization Address City/[facility]/ZIP Co de Phone Number [facility] [address] [place] [address] * OSMOLALITY (10/16/2004 20:05 EDT) Osmolality Cintia 295 MOS/KG SHERI [facility] 10/16/2004 20:0 5 EDT 10/16/2004 20:41 EDT Hilton Álvarez MD CHEMISTRY & BLOOD GAS ORDE RABREBECA Final Result Performing Organization Address [facility] Co de Phone Number [facility] [address] [place] [address] * ELECTROLYTES (10/16/2004 20:05 EDT) Sodium 143 [...] Result Performing Organization Address [facility] Co de Phone Number [facility] [address] [place] [address] * SODIUM (10/16/2004 18:07 EDT) Sodium 144 136 - 145 mEq/L [facility] 10/16/2004 18:0 7 EDT 10/16/2004 18:07 EDT Hilton Álvarez MD CHEMISTRY & BLOOD GAS ORDE RABLES Final Result Performing Organization Address [facility]/ZIP Co de Phone Number [facility] [address] [place] [address] * OSMOLALITY, URINE (10/16/2004 16:27 EDT) Osmolality, Ur 338 MOS/KG HOLLY [facility] 10/16/2004 16:2 7 EDT 10/16/2004 16:27 EDT us Hilton Álvarez MD URINALYSIS ORDERABLES Jacquie l Result Performing Organization Address [facility] de Phone Number [facility] [address] [place] [address] * SODIUM, URINE RANDOM (10/16/2004 16:27 EDT) Sodium, Ur 100.0 mEq/L [facility] 10/16/2004 16:2 7 EDT 10/16/2004 16:27 EDT Hilton Álvarez MD URINALYSIS ORDERABLES Jacquie l Result Performing Organization Address [facility] de Phone Number [facility] [address] [place] [address] * GLUCOSE, SERUM (10/16/2004 16:27 EDT) Glucose, Serum 95 70 - 110 mg/dl [facility] 10/16/2004 16:2 7 EDT 10/16/2004 16:27 EDT us Hilton Álvarez MD CHEMISTRY & BLOOD GAS ORDE RABLES Final Result Performing Organization Address [facility] de Phone Number [facility] [address] [place] [address] * OSMOLALITY (10/16/2004 16:27 EDT) Osmolality Cintia 297 MOS/KG SHERI [facility] 10/16/2004 16:2 7 EDT 10/16/2004 16:27 EDT us Hilton Álvarez MD CHEMISTRY & BLOOD GAS ORDE RABLES Final Result Performing Organization Address [facility] de Phone Number [facility] [address] [place] [address] * SODIUM (10/16/2004 16:27 EDT) Sodium 136 - 145 mEq/L [facility] 10/16/2004 16:2 7 EDT 10/16/2004 16:27 EDT Hilton Álvarez MD CHEMISTRY & BLOOD GAS ORDE RABLES Final Result Performing Organization Address [facility] Co de Phone Number [facility] [address] [place] [address] * ELECTROLYTES (10/16/2004 16:27 EDT) Sodium 143 136 - 145 mEq/L [facility] Potassium 3.8 3.6 - 5.2 mEq/L [facility] Chloride 109 96 - 110 mEq/L [facility] CO2 28 24 - 32 mEq/L [facility] 10/16/2004 16:2 7 EDT 10/16/2004 16:27 EDT Hilton Álvarez MD CHEMISTRY & BLOOD GAS ORDE RABLES Final Result Performing Organization Address [facility] de Phone Number [facility] [address] [place] [address] * SODIUM (10/16/2004 14:14 EDT) Sodium 141 136 - 145 mEq/L [facility] 10/16/2004 14:1 4 EDT 10/16/2004 14:14 EDT Hilton Álvarez MD CHEMISTRY & BLOOD GAS ORDE RABLES Final Result Performing Organization Address [facility] Co de Phone Number [facility] [address] [place] [address] * OSMOLALITY, URINE (10/16/2004 12:14 EDT) Osmolality, Ur 191 MOS/KG HOLLY [facility] 10/16/2004 12:1 4 EDT 10/16/2004 12:14 EDT Hilton Álvarez MD URINALYSIS ORDERABLES Jacquie l Result Performing Organization Address [facility] Co de Phone Number [facility] [address] [place] [address] * SODIUM, URINE RANDOM (10/16/2004 12:14 EDT) Sodium, Ur 27.0 mEq/L [facility] 10/16/2004 12:1 4 EDT 10/16/2004 12:14 EDT Hilton Álvarez MD URINALYSIS ORDERABLES Jacquie l Result Performing Organization Address [facility] de Phone Number [facility] [address] [place] [address] * OSMOLALITY (10/16/2004 12:13 EDT) Osmolality Cintia 298 MOS/KG SHERI [facility] 10/16/2004 12:1 3 EDT 10/16/2004 12:13 EDT Hilton Álvarez MD CHEMISTRY & BLOOD GAS ORDE RABLES Final Result Performing Organization Address [facility] de Phone Number [facility] [address] [place] [address] * ELECTROLYTES (10/16/2004 12:13 EDT) Sodium 138 [...] Result Performing Organization Address [facility] Co de Phone Number [facility] [address] [place] [address] * (ABNORMAL) SODIUM (10/16/2004 10:21 EDT) Sodium 135(L) 136 - 145 mEq/L [facility] Comment:Heparinized plasma. 10/16/2004 10:2 1 EDT 10/16/2004 10:21 EDT Hilton Álvarez MD CHEMISTRY & BLOOD GAS ORDEmerald HANNON Final Result Performing Organization Address [facility] de Phone Number [facility] [address] [place] [address] * OSMOLALITY, URINE (10/16/2004 8:22 EDT) Osmolality, Ur 792 MOS/KG HOLLY [facility] 10/16/2004 8:22 EDT 10/16/2004 8:22 EDT Hilton Álvarez MD URINALYSIS ORDERABLES Jacquie l Result Performing Organization Address [facility] de Phone Number [facility] [address] [place] [address] * SODIUM, URINE RANDOM (10/16/2004 8:22 EDT) Sodium, Ur 186.0 mEq/L [facility] 10/16/2004 8:22 EDT 10/16/2004 8:22 EDT Hilton Álvarez MD URINALYSIS ORDERABLES Jacquie l Result Performing Organization Address [facility] de Phone Number [facility] [address] [place] [address] * OSMOLALITY (10/16/2004 8:21 EDT) Osmolality Cintia 289 MOS/KG SHERI [facility] 10/16/2004 8:21 EDT 10/16/2004 8:21 EDT Hilton Álvarez MD CHEMISTRY & BLOOD GAS ORDE RABLES Final Result [facility] [address] [place] [address] * SODIUM (10/16/2004 8:21 EDT) Sodium 136 - 145 mEq/L [facility] 10/16/2004 8:21 EDT 10/16/2004 8:21 EDT Hilton Álvarez MD CHEMISTRY & BLOOD GAS ORDE RABLES Final Result Performing Organization Address [facility] Co de Phone Number [facility] [address] [place] [address] * (ABNORMAL) ELECTROLYTES (10/16/2004 8:21 EDT) Sodium [...] Result Performing Organization Address [facility] Co de Phone Number [facility] [address] [place] [address] * SODIUM (10/16/2004 6:19 EDT) Sodium 137 136 - 145 mEq/L [facility] 10/16/2004 6:19 EDT 10/16/2004 6:19 EDT Hilton Álvarez MD CHEMISTRY & BLOOD GAS ORDE RABLES Final Result Performing Organization Address City/[facility]/ZIP Co de Phone Number [facility] [address] [place] [address] * GLUCOSE, SERUM (10/16/2004 4:25 EDT) Glucose, Serum 100 70 - 110 mg/dl [facility] 10/16/2004 4:25 EDT 10/16/2004 4:25 EDT Hilton Álvarez MD CHEMISTRY & BLOOD GAS ORDE RABLES Final Result Performing Organization Address [facility] de Phone Number [facility] [address] [place] [address] * PTT (10/16/2004 4:25 EDT) PTT 27 23 - 34 secs [facility] Comment:Therapeutic Heparin range: 72-120 seconds 10/16/2004 4:25 EDT 10/16/2004 4:25 EDT Hilton Álvarez MD HEMATOLOGY & PF4 ORDERABLE S Final Result Performing Organization Address [facility] Phone Number [facility] [address] [place] [address] * (ABNORMAL) PROTIME (10/16/2004 4:25 EDT) Pro [...] Final Result Performing Organization Address [facility] de Phone Number [facility] [address] [place] [address] * OSMOLALITY (10/16/2004 4:25 EDT) Osmolality Cintia 283 MOS/KG SHERI [facility] 10/16/2004 4:25 EDT 10/16/2004 4:25 EDT Hilton Álvarez MD CHEMISTRY & BLOOD GAS ORDE RABLES Final Result Performing Organization Address [facility] de Phone Number [facility] [address] [place] [address] * ELECTROLYTES (10/16/2004 4:25 EDT) Sodium 138 136 - 145 mEq/L [facility] Potassium 3.7 3.6 - 5.2 mEq/L [facility] Chloride 103 96 - 110 mEq/L [facility] CO2 30 24 - 32 mEq/L [facility] 10/16/2004 4:25 EDT 10/16/2004 4:25 EDT Hilton Álvarez MD CHEMISTRY & BLOOD GAS ORDE RABLES Final Result Performing Organization Address [facility] de Phone Number [facility] [address] [place] [address] * CREATININE (10/16/2004 4:25 EDT) Creatinine 0.8 0.6 - 1.2 mg/dl [facility] 10/16/2004 4:25 EDT 10/16/2004 4:25 EDT Hilton Álvarez MD HISTORICAL LAB FOR SQ LOAD Final Result Performing Organization Address [facility] de Phone Number [facility] [address] [place] [address] * (ABNORMAL) HEMAGRAM AND DIFFERENTIAL (10/16/2004 4:25 [...] Result Performing Organization Address [facility] Co de Phone Number [facility] [address] [place] [address] * BUN (10/16/2004 4:25 EDT) BUN 19 8 - 21 mg/dl [facility] 10/16/2004 4:25 EDT 10/16/2004 4:25 EDT Hilton Álvarez MD CHEMISTRY & BLOOD GAS ORDE RABLES Final Result Performing Organization Address [facility] Co de Phone Number [facility] [address] [place] [address] * OSMOLALITY, URINE (10/16/2004 4:25 EDT) Osmolality, Ur 845 MOS/KG HO[facility] 10/16/2004 4:25 EDT 10/16/2004 4:25 EDT Hilton Álvarez MD URINALYSIS ORDERABLES Jacquie l Result Performing Organization Address City/[facility]/ZIP Co de Phone Number [facility] [address] [place] [address] * SODIUM, URINE RANDOM (10/16/2004 4:25 EDT) Sodium, Ur 165.0 mEq/L [facility] 10/16/2004 4:25 EDT 10/16/2004 4:25 EDT Hilton Álvarez MD URINALYSIS ORDERABLES Jacquie l Result Performing Organization Address [facility] de Phone Number [facility] [address] [place] [address] * SODIUM (10/16/2004 2:11 EDT) Sodium 136 136 - 145 mEq/L [facility] 10/16/2004 2:11 EDT 10/16/2004 2:11 EDT Hilton Álvarez MD CHEMISTRY & BLOOD GAS ORDEmerald RABREBECA Final Result Performing Organization Address [facility] de Phone Number [facility] [address] [place] [address] * OSMOLALITY (10/16/2004 0:18 EDT) Osmolality Cintia 292 MOS/KG SHERI [facility] 10/16/2004 0:18 EDT 10/16/2004 0:18 EDT Hilton Álvarez MD CHEMISTRY & BLOOD GAS ORDEmerald RABREBECA Final Result Performing Organization Address [facility] Co de Phone Number [facility] [address] [place] [address] * ELECTROLYTES (10/16/2004 0:18 EDT) Sodium 139 [...] Result Performing Organization Address [facility] de Phone Number [facility] [address] [place] [address] * OSMOLALITY, URINE (10/16/2004 0:18 EDT) Osmolality, Ur 276 MOS/KG MELONIETEA ROJAS [facility] 10/16/2004 0:18 EDT 10/16/2004 0:18 EDT Hilton Álvarez MD URINALYSIS ORDERABLES Jacquie l Result Performing Organization Address [facility] Phone Number [facility] [address] [place] [address] * SODIUM, URINE RANDOM (10/16/2004 0:18 EDT) Sodium, Ur 60.0 mEq/L [facility] 10/16/2004 0:18 EDT 10/16/2004 0:18 EDT Hilton Álvarez MD URINALYSIS ORDERABLES Jacquie l Result Performing Organization Address [facility] de Phone Number [facility] [address] [place] [address] * SODIUM (10/15/2004 21:55 EDT) Sodium 141 136 - 145 mEq/L [facility] 10/15/2004 21:5 5 EDT 10/15/2004 21:55 EDT us Hilton Álvarez MD CHEMISTRY & BLOOD GAS ORDE RABREBECA Final Result Performing Organization Address [facility] de Phone Number [facility] [address] [place] [address] * OSMOLALITY, URINE (10/15/2004 20:04 EDT) Osmolality, Ur 117 MOS/KG HOLLY ROJAS [facility] 10/15/2004 20:0 4 EDT 10/15/2004 20:04 EDT Hilton Álvarez MD URINALYSIS ORDERABLES Jacquie l Result Performing Organization Address [facility] de Phone Number [facility] [address] [place] [address] * SODIUM, URINE RANDOM (10/15/2004 20:04 EDT) Sodium, Ur 29.0 mEq/L [facility] 10/15/2004 20:0 4 EDT 10/15/2004 20:04 EDT Hilton Álvarez MD URINALYSIS ORDERABLES Jacquie l Result Performing Organization Address [facility] de Phone Number [facility] [address] [place] [address] * OSMOLALITY (10/15/2004 20:04 EDT) Osmolality Cintia 285 MOS/KG SHERI ALMEIDA [facility] 10/15/2004 20:0 4 EDT 10/15/2004 20:04 EDT Hilton Álvarez MD CHEMISTRY & BLOOD GAS HERMES HANNON Final Result Performing Organization Address [facility] de Phone Number [facility] [address] [place] [address] * ELECTROLYTES (10/15/2004 20:04 EDT) Sodium 136 136 - 145 mEq/L [facility] Potassium 3.6 3.6 - 5.2 mEq/L [facility] Chloride 99 96 - 110 mEq/L [facility] CO2 29 24 - 32 mEq/L [facility] 10/15/2004 20:0 4 EDT 10/15/2004 20:04 EDT Hilton Álvarez MD CHEMISTRY & BLOOD GAS HERMES HANNON Final Result Performing Organization Address City/[facility]/ZIP Co de Phone Number [facility] [address] [place] [address] * (ABNORMAL) HEMAGRAM (10/15/2004 20:04 EDT) WBC [...] Result Performing Organization Address [facility] Co de Phone Number [facility] [address] [place] [address] * (ABNORMAL) SODIUM (10/15/2004 18:23 EDT) Sodium 133(L) 136 - 145 mEq/L [facility] 10/15/2004 18:2 3 EDT 10/15/2004 18:27 EDT us Hilton Álvarez MD CHEMISTRY & BLOOD GAS HERMES HANNON Final Result Performing Organization Address City/[facility]/ZIP Co de Phone Number [facility] [address] [place] [address] * OSMOLALITY, URINE (10/15/2004 16:23 EDT) Osmolality, Ur 405 MOS/KG HOLLY [facility] 10/15/2004 16:2 3 EDT 10/15/2004 16:23 EDT Hilton Álvarez MD URINALYSIS ORDERABLES Jacquie l Result Performing Organization Address [facility] Co de Phone Number [facility] [address] [place] [address] * SODIUM, URINE RANDOM (10/15/2004 16:23 EDT) Sodium, Ur 96.0 mEq/L [facility] 10/15/2004 16:2 3 EDT 10/15/2004 16:23 EDT Hilton Álvarez MD URINALYSIS ORDERABLES Jacquie l Result Performing Organization Address [facility] Phone Number [facility] [address] [place] [address] * GLUCOSE, SERUM (10/15/2004 16:22 EDT) Glucose, Serum 97 70 - 110 mg/dl [facility] 10/15/2004 16:2 2 EDT 10/15/2004 16:22 EDT Hilton Álvarez MD CHEMISTRY & BLOOD GAS ORDE RABLES Final Result Performing Organization Address [facility] de Phone Number [facility] [address] [place] [address] * OSMOLALITY (10/15/2004 16:22 EDT) Osmolality Cintia 269 MOS/KG SHERI ALMEIDA [facility] 10/15/2004 16:2 2 EDT 10/15/2004 16:22 EDT Hilton Álvarez MD CHEMISTRY & BLOOD GAS ORDE RABLES Final Result Performing Organization Address [facility] de Phone Number [facility] [address] [place] [address] * (ABNORMAL) ELECTROLYTES (10/15/2004 16:22 EDT) Sodium [...] RABLES Final Result [facility] [address] [place] [address] * (ABNORMAL) SODIUM (10/15/2004 14:04 EDT) Sodium 129(L) 136 - 145 mEq/L [facility] Comment:Heparinized plasma. 10/15/2004 14:0 4 EDT 10/15/2004 14:04 EDT Hilton Álvarez MD CHEMISTRY & BLOOD GAS ORDE RABLES Final Result Performing Organization Address [facility] Co de Phone Number [facility] [address] [place] [address] * OSMOLALITY (10/15/2004 12:06 EDT) Osmolality Cintia 275 MOS/KG SHERI [facility] 10/15/2004 12:0 6 EDT 10/15/2004 12:06 EDT Hilton Álvarez MD CHEMISTRY & BLOOD GAS ORDE RABLES Final Result Performing Organization Address City/[facility] Co de Phone Number [facility] [address] [place] [address] * SODIUM (10/15/2004 12:06 EDT) Sodium 136 - 145 mEq/L [facility] 10/15/2004 12:0 6 EDT 10/15/2004 12:06 EDT Hilton Álvarez MD CHEMISTRY & BLOOD GAS ORDEmerald HANNON Final Result Performing Organization Address [facility] de Phone Number [facility] [address] [place] [address] * (ABNORMAL) ELECTROLYTES (10/15/2004 12:06 EDT) Sodium [...] HERMES HANNON Final Result Performing Organization Address [facility] de Phone Number [facility] [address] [place] [address] * OSMOLALITY, URINE (10/15/2004 12:04 EDT) Pathologist [facility] Osmolality, Ur 840 MOS/KG HOLLY [facility] 10/15/2004 12:0 4 EDT 10/15/2004 12:04 EDT Hilton Álvarez MD URINALYSIS ORDERABLES Jacquie l Result Performing Organization Address [facility] de Phone Number [facility] [address] [place] [address] * SODIUM, URINE RANDOM (10/15/2004 12:04 EDT) Sodium, Ur 243.0 mEq/L [facility] 10/15/2004 12:0 4 EDT 10/15/2004 12:04 EDT Hilton Álvarez MD URINALYSIS ORDERABLES Jacquie l Result Performing Organization Address [facility] Co de Phone Number [facility] [address] [place] [address] * (ABNORMAL) SODIUM (10/15/2004 10:07 EDT) Sodium 130(L) 136 - 145 mEq/L [facility] Comment:Heparinized plasma. 10/15/2004 10:0 7 EDT 10/15/2004 10:07 EDT Hilton Álvarez MD CHEMISTRY & BLOOD GAS ORDE [facility] Final Result Performing Organization Address [facility] Co de Phone Number [facility] [address] [place] [address] * OSMOLALITY, URINE (10/15/2004 8:17 EDT) Osmolality, Ur 791 MOS/KG HOLLY [facility] 10/15/2004 8:17 EDT 10/15/2004 8:17 EDT Hilton Álvarez MD URINALYSIS ORDERABLES Jacquie l Result Performing Organization Address [facility] Co de Phone Number [facility] [address] [place] [address] * SODIUM, URINE RANDOM (10/15/2004 8:17 EDT) Sodium, Ur 254.0 mEq/L [facility] 10/15/2004 8:17 EDT 10/15/2004 8:17 EDT Hilton Álvarez MD URINALYSIS ORDERABLES Jacquie l Result Performing Organization Address [facility] Co de Phone Number [facility] [address] [place] [address] * URINE MICROSCOPIC (10/15/2004 8:17 EDT) WBC, [...] ORDERABLES Jacquie nur Result Performing Organization Address [facility] de Phone Number [facility] [address] [place] [address] * (ABNORMAL) URINALYSIS (10/15/2004 8:17 EDT) Color, UA Yellow [facility] Clarity, UA Clear [facility] Glucose, UA Norm NORM [facility] Bilirubin, UA Neg NEG [facility] Ketones, UA Neg NEG [facility] Specific [place], Urine 1.020 1.005 - 1.02 [facility] [...] l Result Performing Organization Address [facility] Co de Phone Number [facility] [address] [place] [address] * TESTS ADDED BY PHONE (10/15/2004 8:17 EDT) Tests to be added UA [facility] 10/15/2004 8:17 EDT 10/15/2004 8:17 EDT Hilton Álvarez MD CHEMISTRY & BLOOD GAS ORDE RABLES Final Result Performing Organization Address [facility] de Phone Number [facility] [address] [place] [address] * OSMOLALITY (10/15/2004 8:16 EDT) Osmolality Cintia 271 MOS/KG SHERI ALMEIDA [facility] 10/15/2004 8:16 EDT 10/15/2004 8:16 EDT Hilton Álvarez MD CHEMISTRY & BLOOD GAS ORDE RABLES Final Result Performing Organization Address [facility] de Phone Number [facility] [address] [place] [address] * (ABNORMAL) ELECTROLYTES (10/15/2004 8:16 EDT) Pathologist [facility] [place] Sodium 131(L) 136 - 145 mEq/L [facility] Potassium 3.6 3.6 - 5.2 mEq/L [facility] Chloride 98 96 - 110 mEq/L [facility] CO2 29 24 - 32 mEq/L [facility] 10/15/2004 8:16 EDT 10/15/2004 8:16 EDT Hilton Álvarez MD CHEMISTRY & BLOOD GAS ORDE RABLES Final Result Performing Organization Address [facility] de Phone Number [facility] [address] [place] [address] * OSMOLALITY, URINE (10/15/2004 4:21 EDT) Osmolality, Ur 587 MOS/KG HOLLY [facility] 10/15/2004 4:21 EDT 10/15/2004 4:21 EDT Hilton Álvarez MD URINALYSIS ORDERABLES Jacquie l Result Performing Organization Address City/[facility] Co de Phone Number [facility] [address] [place] [address] * SODIUM, URINE RANDOM (10/15/2004 4:21 EDT) Pathologist [facility] [place] Sodium, Ur 189.0 mEq/L [facility] 10/15/2004 4:21 EDT 10/15/2004 4:21 EDT Hilton Álvarez MD URINALYSIS ORDERABLES Jacquie l Result Performing Organization Address [facility] Co de Phone Number [facility] [address] [place] [address] * GLUCOSE, SERUM (10/15/2004 4:21 EDT) [facility] Glucose, Serum 110 70 - 110 mg/dl [facility] 10/15/2004 4:21 EDT 10/15/2004 4:21 EDT Hilton Álvarez MD CHEMISTRY & BLOOD GAS ORDE RABLES Final Result Performing Organization Address [facility] de Phone Number [facility] [address] [place] [address] * PTT (10/15/2004 4:21 EDT) [facility] PTT 27 23 - 34 secs [facility] Comment:Therapeutic Heparin range: 72-120 seconds 10/15/2004 4:21 EDT 10/15/2004 4:21 EDT Hilton Álvarez MD HEMATOLOGY & PF4 ORDERABLE S Final Result Performing Organization Address [facility] Co de Phone Number [facility] [address] [place] [address] * (ABNORMAL) PROTIME (10/15/2004 4:21 EDT) [facility] Pro Time 14.9(H) 12.3 - 14.7 [...] Result Performing Organization Address [facility] de Phone Number [facility] [address] [place] [address] * OSMOLALITY (10/15/2004 4:21 EDT) Pathologist [facility] Osmolality Cintia 270 MOS/KG SHERI [facility] 10/15/2004 4:21 EDT 10/15/2004 4:21 EDT Hilton Álvarez MD CHEMISTRY & BLOOD GAS ORDEmerald HANNON Final Result Performing Organization Address [facility] de Phone Number [facility] [address] [place] [address] * (ABNORMAL) ELECTROLYTES (10/15/2004 4:21 EDT) [facility] Sodium 126(L) 136 - 145 mEq/L [facility] Potassium 3.5(L) 3.6 - 5.2 mEq/L [facility] Chloride 90(L) 96 - 110 mEq/L [facility] CO2 30 24 - 32 mEq/L [facility] 10/15/2004 4:21 EDT 10/15/2004 4:21 EDT Hilton Álvarez MD CHEMISTRY & BLOOD GAS ORDEmerald HANNON Final Result Performing Organization Address [facility] de Phone Number [facility] [address] [place] [address] * CREATININE (10/15/2004 4:21 EDT) [facility] Creatinine 0.6 0.6 - 1.2 mg/dl [facility] 10/15/2004 4:21 EDT 10/15/2004 4:21 EDT us Hilton Álvarez MD HISTORICAL LAB FOR SQ LOAD Final Result Performing Organization Address City/[facility]/ZIP Co de Phone Number [facility] [address] [place] [address] * (ABNORMAL) HEMAGRAM AND DIFFERENTIAL (10/15/2004 4:21 [...] K/cmm [facility] RDW-CV 15.5 % [facility] % Neutrophils 76.7 % FLETCH [...] ORDER LYNDSEY Final Result Performing Organization Address City/[facility]/ZIP Co de Phone Number [facility] [address] [place] [address] * BUN (10/15/2004 4:21 EDT) BUN 12 8 - 21 mg/dl [facility] 10/15/2004 4:21 EDT 10/15/2004 4:21 EDT Hilton Álvarez MD CHEMISTRY & BLOOD GAS ORDE RABLES Final Result Performing Organization Address [facility] Phone Number [facility] [address] [place] [address] * OSMOLALITY, URINE (10/15/2004 0:55 EDT) Osmolality, Ur 646 MOS/KG HOLLY ROJAS [facility] 10/15/2004 0:55 EDT 10/15/2004 0:55 EDT Hilton Álvarez MD URINALYSIS ORDERABLES Jacquie l Result Performing Organization Address [facility] de Phone Number [facility] [address] [place] [address] * SODIUM, URINE RANDOM (10/15/2004 0:55 EDT) Sodium, Ur 258.0 mEq/L [facility] 10/15/2004 0:55 EDT 10/15/2004 0:55 EDT Hilton Álvarez MD URINALYSIS ORDERABLES Jacquie l Result Performing Organization Address [facility] de Phone Number [facility] [address] [place] [address] * OSMOLALITY (10/15/2004 0:54 EDT) Osmolality Cintia 266 MOS/KG MELONIENoe ELLE [facility] 10/15/2004 0:54 EDT 10/15/2004 0:54 EDT Hilton Álvarez MD CHEMISTRY & BLOOD GAS ORDE RABLES Final Result Performing Organization Address [facility] de Phone Number [facility] [address] [place] [address] * (ABNORMAL) ELECTROLYTES (10/15/2004 0:54 EDT) Sodium 127(L) 136 - 145 mEq/L [facility] Potassium 3.6 3.6 - 5.2 mEq/L [facility] Chloride 92(L) 96 - 110 mEq/L [facility] CO2 29 24 - 32 mEq/L [facility] 10/15/2004 0:54 EDT 10/15/2004 0:54 EDT Hilton Álvarez MD CHEMISTRY & BLOOD GAS ORDE RIDDHI Final Result Performing Organization Address City/[facility]/ZIP Co de Phone Number [facility] [address] [place] [address] * SODIUM, URINE RANDOM (10/14/2004 22:05 EDT) Sodium, Ur 148.0 mEq/L [facility] 10/14/2004 22:0 5 EDT 10/14/2004 22:05 EDT Hilton Álvarez MD URINALYSIS ORDERABLES Jacquie l Result Performing Organization Address [facility] Co de Phone Number [facility] [address] [place] [address] * (ABNORMAL) SODIUM (10/14/2004 21:44 EDT) Sodium 130(L) 136 - 145 mEq/L [facility] 10/14/2004 21:4 4 EDT 10/14/2004 22:05 EDT Hilton Álvarez MD CHEMISTRY & BLOOD GAS ORDE RABLES Final Result Performing Organization Address [facility] Co de Phone Number [facility] [address] [place] [address] * (ABNORMAL) GLUCOSE, SERUM (10/14/2004 20:25 EDT) Glucose, Serum 125(H) 70 - 110 mg/dl [facility] 10/14/2004 20:2 5 EDT 10/14/2004 20:25 EDT Hilton Álvarez MD CHEMISTRY & BLOOD GAS ORDE RABLES Final Result Performing Organization Address [facility] de Phone Number [facility] [address] [place] [address] * OSMOLALITY (10/14/2004 20:25 EDT) Osmolality Cintia 272 MOS/KG SHEIR [facility] 10/14/2004 20:2 5 EDT 10/14/2004 20:25 EDT Hilton Álvarez MD CHEMISTRY & BLOOD GAS ORDE RABLES Final Result Performing Organization Address [facility] Phone Number [facility] [address] [place] [address] * (ABNORMAL) ELECTROLYTES (10/14/2004 20:25 EDT) Sodium [...] Result Performing Organization Address [facility] de Phone Number [facility] [address] [place] [address] * CREATININE (10/14/2004 20:25 EDT) Creatinine 0.6 0.6 - 1.2 mg/dl [facility] 10/14/2004 20:2 5 EDT 10/14/2004 20:25 EDT Hilton Álvarez MD HISTORICAL LAB FOR SQ LOAD Final Result [facility] [address] [place] [address] * BUN (10/14/2004 20:25 EDT) BUN 13 8 - 21 mg/dl [facility] 10/14/2004 20:2 5 EDT 10/14/2004 20:25 EDT Hilton Álvarez MD CHEMISTRY & BLOOD GAS ORDE RABLES Final Result Performing Organization Address [facility]/ZIP Co de Phone Number [facility] [address] [place] [address] * OSMOLALITY, URINE (10/14/2004 20:25 EDT) Osmolality, Ur 697 MOS/KG HOLLY ROJAS [facility] 10/14/2004 20:2 5 EDT 10/14/2004 20:25 EDT Hilton Álvarez MD URINALYSIS ORDERABLES Jacquie l Result Performing Organization Address [facility] Co de Phone Number [facility] [address] [place] [address] * SODIUM, URINE RANDOM (10/14/2004 20:25 EDT) Sodium, Ur 275.0 mEq/L [facility] 10/14/2004 20:2 5 EDT 10/14/2004 20:25 EDT Hilton Álvarez MD URINALYSIS ORDERABLES Jacquie l Result Performing Organization Address [facility] Co de Phone Number [facility] [address] [place] [address] * (ABNORMAL) GLUCOSE, SERUM (10/14/2004 15:58 EDT) Glucose, Serum 113(H) 70 - 110 mg/dl [facility] 10/14/2004 15:5 8 EDT 10/14/2004 16:03 EDT Hilton Álvarez MD CHEMISTRY & BLOOD GAS ORDEmerald HANNON Final Result Performing Organization Address [facility] [facility] de Phone Number [facility] [address] [place] [address] * OSMOLALITY (10/14/2004 15:58 EDT) Osmolality Cintia 285 MOS/KG SHERI [facility] 10/14/2004 15:5 8 EDT 10/14/2004 16:03 EDT Hilton Álvarez MD CHEMISTRY & BLOOD GAS HERMES HANNON Final Result Performing Organization Address [facility] Phone Number [facility] [address] [place] [address] * (ABNORMAL) ELECTROLYTES (10/14/2004 15:58 EDT) Sodium 133(L) 136 - 145 mEq/L [facility] Potassium 3.9 3.6 - 5.2 mEq/L [facility] Chloride 100 96 - 110 mEq/L [facility] CO2 27 24 - 32 mEq/L ANISHA G[facility] 10/14/2004 15:5 8 EDT 10/14/2004 16:03 EDT Hilton Álvarez MD CHEMISTRY & BLOOD GAS HERMES HANNON Final Result Performing Organization Address [facility] de Phone Number [facility] [address] [place] [address] * OSMOLALITY, URINE (10/14/2004 15:57 EDT) Osmolality, Ur 823 MOS/KG HOLLY [facility] 10/14/2004 15:5 7 EDT 10/14/2004 16:02 EDT Hilton Álvarez MD URINALYSIS ORDERABLES Jacquie l Result Performing Organization Address [facility]/ZIP Co de Phone Number [facility] [address] [place] [address] * SODIUM, URINE RANDOM (10/14/2004 15:57 EDT) Sodium, Ur 265.0 mEq/L [facility] 10/14/2004 15:5 7 EDT 10/14/2004 16:02 EDT us Hilton Álvarez MD URINALYSIS ORDERABLES Jacquie liudmila Result [facility] [address] [place] [address] * CT HEAD WO CONTRAST (10/14/2004 13:25 [...] seen in the left ethmoid air cells. /[facility] Trice Scott MD IMG CT ORDERABLES Final Re sult * OSMOLALITY, URINE (10/14/2004 11:49 EDT) Osmolality, Ur 888 MOS/KG HOLLY [facility] 10/14/2004 11:4 9 EDT 10/14/2004 11:49 EDT Hilton Álvarez MD URINALYSIS ORDERABLES Jacquie l Result [facility] [address] [place] [address] * SODIUM, URINE RANDOM (10/14/2004 11:49 EDT) Sodium, Ur 249.0 mEq/L [facility] 10/14/2004 11:4 9 EDT 10/14/2004 11:49 EDT us Hilton Álvarez MD URINALYSIS ORDERABLES Jacquie l Result Performing Organization Address City/[facility]/ZIP Co de Phone Number [facility] [address] [place] [address] * OSMOLALITY (10/14/2004 11:48 EDT) Osmolality Cintia 283 MOS/KG SHERI AL[facility] 10/14/2004 11:4 8 EDT 10/14/2004 11:48 EDT Hilton Álavrez MD CHEMISTRY & BLOOD GAS ORDEmerald HANNON Final Result Performing Organization Address [facility] Co de Phone Number [facility] [address] [place] [address] * (ABNORMAL) ELECTROLYTES (10/14/2004 11:48 EDT) Sodium [...] ORDEmerald HANNON Final Result Performing Organization Address [facility] Co de Phone Number [facility] [address] [place] [address] * OSMOLALITY, URINE (10/14/2004 8:01 EDT) Osmolality, Ur 899 MOS/KG HOLLY [facility] 10/14/2004 8:01 EDT 10/14/2004 8:01 EDT Hilton Álvarez MD URINALYSIS ORDERABLES Jacquie l Result Performing Organization Address City/[facility]/ZIP Co de Phone Number [facility] [address] [place] [address] * SODIUM, URINE RANDOM (10/14/2004 8:01 EDT) Sodium, Ur 287.0 mEq/L [facility] 10/14/2004 8:01 EDT 10/14/2004 8:01 EDT Hilton Álvarez MD URINALYSIS ORDERABLES Jacquei l Result Performing Organization Address [facility] de Phone Number [facility] [address] [place] [address] * OSMOLALITY (10/14/2004 8:01 EDT) Osmolality Cintia 286 MOS/KG SHERI [facility] 10/14/2004 8:01 EDT 10/14/2004 8:01 EDT Hilton Álvarez MD CHEMISTRY & BLOOD GAS ORDE RABREBECA Final Result Performing Organization Address [facility] Phone Number [facility] [address] [place] [address] * (ABNORMAL) ELECTROLYTES (10/14/2004 8:01 EDT) Sodium [...] Final Result Performing Organization Address [facility] de Phone Number [facility] [address] [place] [address] * GLUCOSE, SERUM (10/14/2004 4:22 EDT) Glucose, Serum 99 70 - 110 mg/dl [facility] 10/14/2004 4:22 EDT 10/14/2004 4:22 EDT Hilton Álvarez MD CHEMISTRY & BLOOD GAS ORDE RABLES Final Result Performing Organization Address [facility] de Phone Number [facility] [address] [place] [address] * PTT (10/14/2004 4:22 EDT) PTT 25 23 - 34 secs [facility] Comment:Therapeutic Heparin range: 72-120 seconds 10/14/2004 4:22 EDT 10/14/2004 4:22 EDT Hilton Álvarez MD HEMATOLOGY & PF4 ORDERABLE S Final Result Performing Organization Address [facility] Phone Number [facility] [address] [place] [address] * (ABNORMAL) PROTIME (10/14/2004 4:22 EDT) Pro [...] ORDERABLE S Final Result Performing Organization Address [facility] de Phone Number [facility] [address] [place] [address] * OSMOLALITY (10/14/2004 4:22 EDT) Osmolality Cintia 291 MOS/KG SHERI [facility] 10/14/2004 4:22 EDT 10/14/2004 4:22 EDT Hilton Álvarez MD CHEMISTRY & BLOOD GAS ORDE RABLES Final Result Performing Organization Address [facility] de Phone Number [facility] [address] [place] [address] * (ABNORMAL) ELECTROLYTES (10/14/2004 4:22 EDT) Pathologist [...] Result Performing Organization Address [facility] de Phone Number [facility] [address] [place] [address] * CREATININE (10/14/2004 4:22 EDT) Pathologist [facility] Creatinine 0.8 0.6 - 1.2 mg/dl [facility] 10/14/2004 4:22 EDT 10/14/2004 4:22 EDT Hilton Álvarez MD HISTORICAL LAB FOR SQ LOAD Final Result Performing Organization Address [facility] de Phone Number [facility] [address] [place] [address] * (ABNORMAL) HEMAGRAM AND DIFFERENTIAL (10/14/2004 4:22 [...] LYNDSEY Final Result Performing Organization Address [facility] de Phone Number [facility] [address] [place] [address] * BUN (10/14/2004 4:22 EDT) BUN 16 8 - 21 mg/dl [facility] 10/14/2004 4:22 EDT 10/14/2004 4:22 EDT Hilton Álvarez MD CHEMISTRY & BLOOD GAS ORDE RABLES Final Result Performing Organization Address [facility] de Phone Number [facility] [address] [place] [address] * REFRACTOMETER SPECIFIC GRAVITY, URINE (10/14/2004 4:21 EDT) Refractometer SG,Urine 1.019 1.005 - 1.02 [facility] 10/14/2004 4:21 EDT 10/14/2004 4:21 EDT Hilton Álvarez MD URINALYSIS ORDERABLES Jacquie l Result Performing Organization Address [facility] Co de Phone Number [facility] [address] [place] [address] * OSMOLALITY, URINE (10/14/2004 4:21 EDT) Osmolality, Ur 852 MOS/KG MELONIETEA HER [facility] 10/14/2004 4:21 EDT 10/14/2004 4:21 EDT Hilton Álvarez MD URINALYSIS ORDERABLES Jacquie l Result Performing Organization Address [facility] Phone Number [facility] [address] [place] [address] * SODIUM, URINE RANDOM (10/14/2004 4:21 EDT) Sodium, Ur 306.0 mEq/L [facility] 10/14/2004 4:21 EDT 10/14/2004 4:21 EDT Hilton Álvarez MD URINALYSIS ORDERABLES Jacquie l Result Performing Organization Address [facility] de Phone Number [facility] [address] [place] [address] * GLUCOSE, SERUM (10/14/2004 0:22 EDT) Pathologist [facility] Glucose, Serum 91 70 - 110 mg/dl [facility] 10/14/2004 0:22 EDT 10/14/2004 0:22 EDT Hilton Álvarez MD CHEMISTRY & BLOOD GAS HERMES HANNON Final Result Performing Organization Address [facility] de Phone Number [facility] [address] [place] [address] * OSMOLALITY (10/14/2004 0:22 EDT) Osmolality Cintia 290 MOS/KG MELONIENoe ALMEIDA [facility] 10/14/2004 0:22 EDT 10/14/2004 0:22 EDT Hilton Álvarez MD CHEMISTRY & BLOOD GAS ORDE RABLES Final Result Performing Organization Address [facility] Co de Phone Number [facility] [address] [place] [address] * (ABNORMAL) ELECTROLYTES (10/14/2004 0:22 EDT) Sodium 141 136 - 145 mEq/L [facility] Potassium 3.4(L) 3.6 - 5.2 mEq/L [facility] Chloride 106 96 - 110 mEq/L [facility] CO2 30 24 - 32 mEq/L [facility] 10/14/2004 0:22 EDT 10/14/2004 0:22 EDT Hilton Álvarez MD CHEMISTRY & BLOOD GAS HERMES HANNON Final Result Performing Organization Address [facility] de Phone Number [facility] [address] [place] [address] * OSMOLALITY, URINE (10/14/2004 0:22 EDT) Osmolality, Ur 767 MOS/KG HOLLY ROJAS [facility] 10/14/2004 0:22 EDT 10/14/2004 0:22 EDT Hilton Álvarez MD URINALYSIS ORDERABLES Jacquie l Result Performing Organization Address [facility] de Phone Number [facility] [address] [place] [address] * SODIUM, URINE RANDOM (10/14/2004 0:22 EDT) Sodium, Ur 293.0 mEq/L [facility] 10/14/2004 0:22 EDT 10/14/2004 0:22 EDT Hilton Álvarez MD URINALYSIS ORDERABLES Jacquie l Result Performing Organization Address [facility] Co de Phone Number [facility] [address] [place] [address] * SODIUM (10/13/2004 22:02 EDT) Sodium 143 136 - 145 mEq/L [facility] 10/13/2004 22:0 2 EDT 10/13/2004 22:02 EDT Hilton Álvarez MD CHEMISTRY & BLOOD GAS ORDE RABLES Final Result Performing Organization Address [facility] de Phone Number [facility] [address] [place] [address] * OSMOLALITY (10/13/2004 20:19 EDT) Pathologist [facility] Osmolality Cintia 300 MOS/KG SHERI [facility] 10/13/2004 20:1 9 EDT 10/13/2004 20:19 EDT Hilton Álvarez MD CHEMISTRY & BLOOD GAS ORDE RABLES Final Result Performing Organization Address [facility] de Phone Number [facility] [address] [place] [address] * (ABNORMAL) ELECTROLYTES (10/13/2004 20:19 EDT) Pathologist [facility] Sodium 147(H) 136 - 145 mEq/L [facility] Potassium 3.5(L) 3.6 - 5.2 mEq/L [facility] Chloride 111(H) 96 - 110 mEq/L [facility] CO2 29 24 - 32 mEq/L [facility] 10/13/2004 20:1 9 EDT 10/13/2004 20:19 EDT Hilton Álvarez MD CHEMISTRY & BLOOD GAS ORDE RABLES Final Result Performing Organization Address [facility] de Phone Number [facility] [address] [place] [address] * (ABNORMAL) REFRACTOMETER SPECIFIC GRAVITY, URINE (10/13/2004 20:16 EDT) Pathologist [facility] Refractometer SG,Urine 1.002(L) 1.005 - 1.02 [facility] Comment: Refractometer specific gravity Results greater than 1.035 suggest possible interference from glucose or radiographic dye. 10/13/2004 20:1 6 EDT 10/13/2004 20:16 EDT Hilton Álvarez MD URINALYSIS ORDERABLES Jacquie l Result Performing Organization Address [facility] Co de Phone Number [facility] [address] [place] [address] * OSMOLALITY, URINE (10/13/2004 20:16 EDT) Osmolality, Ur 87 MOS/KG MELONIETEA ROJAS [facility] 10/13/2004 20:1 6 EDT 10/13/2004 20:16 EDT Hilton Álvarez MD URINALYSIS ORDERABLES Jacquie l Result Performing Organization Address [facility] de Phone Number [facility] [address] [place] [address] * SODIUM, URINE RANDOM (10/13/2004 20:16 EDT) Sodium, Ur 18.0 mEq/L [facility] 10/13/2004 20:1 6 EDT 10/13/2004 20:16 EDT Hilton Álvarez MD URINALYSIS ORDERABLES Jacquie l Result Performing Organization Address [facility] de Phone Number [facility] [address] [place] [address] * SODIUM (10/13/2004 18:38 EDT) Sodium 144 136 - 145 mEq/L [facility] 10/13/2004 18:3 8 EDT 10/13/2004 18:38 EDT us Hilton Álvarez MD CHEMISTRY & BLOOD GAS ORDE RIDDHI Final Result Performing Organization Address [facility] Co de Phone Number [facility] [address] [place] [address] * SODIUM, URINE RANDOM (10/13/2004 17:34 EDT) Sodium, Ur 17.0 mEq/L [facility] 10/13/2004 17:3 4 EDT 10/13/2004 17:34 EDT us Hilton Álvarez MD URINALYSIS ORDERABLES Jacquie l Result Performing Organization Address [facility] de Phone Number [facility] [address] [place] [address] * OSMOLALITY, URINE (10/13/2004 15:42 EDT) Osmolality, Ur 145 MOS/KG HOLLY [facility]JAS [facility] 10/13/2004 15:4 2 EDT 10/13/2004 15:42 EDT us Hilton Álvarez MD URINALYSIS ORDERABLES Jacquie l Result Performing Organization Address [facility] Phone Number [facility] [address] [place] [address] * SODIUM, URINE RANDOM (10/13/2004 15:42 EDT) Sodium, Ur 16.0 mEq/L [facility] 10/13/2004 15:4 2 EDT 10/13/2004 15:42 EDT us Hilton Álvarez MD URINALYSIS ORDERABLES Jacquie l Result Performing Organization Address [facility] Phone Number [facility] [address] [place] [address] * (ABNORMAL) PHENYTOIN (10/13/2004 15:33 EDT) Phenytoin [...] ORDE RABLES Final Result Performing Organization Address [facility] de Phone Number [facility] [address] [place] [address] * OSMOLALITY (10/13/2004 15:33 EDT) Osmolality Cintia 294 MOS/KG SHERI [facility] 10/13/2004 15:3 3 EDT 10/13/2004 15:33 EDT Hilton Álvarez MD CHEMISTRY & BLOOD GAS ORDE RABLES Final Result Performing Organization Address [facility] de Phone Number [facility] [address] [place] [address] * (ABNORMAL) ELECTROLYTES (10/13/2004 15:33 EDT) Sodium 139 136 - 145 mEq/L [facility] Potassium 3.5(L) 3.6 - 5.2 mEq/L [facility] Chloride 100 96 - 110 mEq/L [facility] CO2 31 24 - 32 mEq/L [facility] 10/13/2004 15:3 3 EDT 10/13/2004 15:33 EDT Hilton Álvarez MD CHEMISTRY & BLOOD GAS ORDE RABLES Final Result Performing Organization Address [facility] de Phone Number [facility] [address] [place] [address] * OSMOLALITY (10/13/2004 12:01 EDT) Osmolality Cintia 280 MOS/KG SHERI ALMEIDA [facility] 10/13/2004 12:0 1 EDT 10/13/2004 12:01 EDT Hilton Álvarez MD CHEMISTRY & BLOOD GAS ORDE RABLES Final Result Performing Organization Address [facility]/ZIP Co de Phone Number [facility] [address] [place] [address] * (ABNORMAL) ELECTROLYTES (10/13/2004 12:01 EDT) Sodium 135(L) 136 - 145 mEq/L [facility] Potassium 3.7 3.6 - 5.2 mEq/L [facility] Chloride 100 96 - 110 mEq/L [facility] CO2 30 24 - 32 mEq/L [facility] 10/13/2004 12:0 1 EDT 10/13/2004 12:01 EDT Hilton Álvarez MD CHEMISTRY & BLOOD GAS ORDE RABLES Final Result Performing Organization Address [facility] de Phone Number [facility] [address] [place] [address] * BACTERIAL CULTURE/SMEAR, RESPIRATORY (10/13/2004 12:00 EDT) Specimen Description Sputum [facility] Gram Smear Result Many Polys Few Squamous epithelial cells Alveolar macrophages present Respiratory epithelial cells present No bacteria seen [facility] Result No growth [facility] Report Status Final [id number] [facility] 10/13/2004 12:0 0 EDT 10/13/2004 12:21 EDT Hilton Álvarez MD MICROBIOLOGY - GENERAL ORD ERABLES Final Result Performing Organization Address [facility] de Phone Number [facility] [address] [place] [address] * UA REFLEX (10/13/2004 12:00 EDT) UA Billing Microscopic not indicated. [facility] 10/13/2004 12:0 0 EDT 10/13/2004 12:00 EDT Hilton Álvarez MD URINALYSIS ORDERABLES Jacquie l Result Performing Organization Address [facility] Co de Phone Number [facility] [address] [place] [address] * SODIUM, URINE RANDOM (10/13/2004 12:00 EDT) Sodium, Ur 49.0 mEq/L [facility] 10/13/2004 12:0 0 EDT 10/13/2004 12:00 EDT Hilton Álvarez MD URINALYSIS ORDERABLES Jacquie l Result Performing Organization Address [facility] de Phone Number [facility] [address] [place] [address] * URINALYSIS (10/13/2004 12:00 EDT) Color, UA Yellow [facility] Clarity, UA Cloudy [facility] Glucose, UA Norm NORM [facility] Bilirubin, UA Neg NEG [facility] Ketones, UA Neg NEG [facility] Specific [place], Urine 1.020 1.005 - 1.02 [facility] [...] ORDERABLES Jacquie l Result Performing Organization Address [facility] de Phone Number [facility] [address] [place] [address] * CT HEAD WO CONTRAST (10/13/2004 10:50 [...] growth [facility] Report Status Final [id number] [facility] 10/13/2004 10:2 5 EDT 10/13/2004 11:42 EDT Hilton Álvarez MD MICROBIOLOGY - GENERAL ORD ERABLES Final Result Performing Organization Address [facility] Co de Phone Number [facility] [address] [place] [address] * BACTERIAL CULTURE, BLOOD (10/13/2004 10:15 EDT) Specimen Description Blood Arterial Line [facility] Result No growth [facility] Report Status Final [id number] [facility] 10/13/2004 10:1 5 EDT 10/13/2004 11:41 EDT Hilton Álvarez MD MICROBIOLOGY - GENERAL ORD ERABLES Final Result Performing Organization Address [facility] Co de Phone Number [facility] [address] [place] [address] * (ABNORMAL) REFRACTOMETER SPECIFIC GRAVITY, URINE (10/13/2004 8:19 EDT) Pathologist [facility] Refractometer SG,Urine 1.052(H) 1.005 - 1.02 [facility] Comment: Refractometer specific gravity Results greater than 1.035 suggest possible interference from glucose or radiographic dye. 10/13/2004 8:19 EDT 10/13/2004 8:19 EDT Hilton Álvarez MD URINALYSIS ORDERABLES Jacquie l Result Performing Organization Address [facility] Co de Phone Number [facility] [address] [place] [address] * OSMOLALITY (10/13/2004 8:16 EDT) Osmolality Cintia 287 MOS/KG SHERI [facility] 10/13/2004 8:16 EDT 10/13/2004 8:16 EDT Hilton Álvarez MD CHEMISTRY & BLOOD GAS ORDE [facility] Final Result Performing Organization Address [facility] de Phone Number [facility] [address] [place] [address] * (ABNORMAL) ELECTROLYTES (10/13/2004 8:16 EDT) Pathologist [facility] Sodium 133(L) 136 - 145 mEq/L [facility] Potassium 3.8 3.6 - 5.2 mEq/L [facility] Chloride 99 96 - 110 mEq/L [facility] CO2 27 24 - 32 mEq/L [facility] 10/13/2004 8:16 EDT 10/13/2004 8:16 EDT Hilton Álvarez MD CHEMISTRY & BLOOD GAS ORDE [facility] Final Result Performing Organization Address [facility] de Phone Number [facility] [address] [place] [address] * PORTABLE CHEST 1 VIEW (10/13/2004 7:00 [...] * PTT (10/13/2004 5:52 EDT) Pathologist [facility] PTT 27 23 - 34 secs [facility] Comment:Therapeutic Heparin range: 72-120 seconds 10/13/2004 5:52 EDT 10/13/2004 5:52 EDT Result [facility] Hilton Álvarez MD HEMATOLOGY & PF4 ORDERABLE S Final Result [facility] [address] [place] [address] * (ABNORMAL) PROTIME (10/13/2004 5:52 EDT) Pro [...] ORDERABLE S Final Result Performing Organization Address City/[facility]/ZIP Co de Phone Number [facility] [address] [place] [address] * CREATININE (10/13/2004 5:52 EDT) Creatinine 0.7 0.6 - 1.2 mg/dl [facility] 10/13/2004 5:52 EDT 10/13/2004 5:52 EDT us Hilton Álvarez MD HISTORICAL LAB FOR SQ LOAD Final Result Performing Organization Address [facility] de Phone Number [facility] [address] [place] [address] * (ABNORMAL) HEMAGRAM (10/13/2004 5:52 EDT) WBC [...] ORDERABLE S Final Result Performing Organization Address City/[facility] Co de Phone Number [facility] [address] [place] [address] * BUN (10/13/2004 5:52 EDT) BUN 16 8 - 21 mg/dl [facility] 10/13/2004 5:52 EDT 10/13/2004 5:52 EDT Hilton Álvarez MD CHEMISTRY & BLOOD GAS HERMES HANNON Final Result Performing Organization Address [facility] de Phone Number [facility] [address] [place] [address] * (ABNORMAL) BLOOD GAS, G3 ISTAT (10/13/2004 [...] [facility] Sample Type Arterial ANIS[facility] [employer] manager [place] [id number] Test Performed by Respiratory [facility] 10/13/2004 4:34 EDT 10/13/2004 5:03 EDT Hilton Álvarez MD CHEMISTRY & BLOOD GAS HERMES HANNON Final Result Performing Organization Address [facility] Phone Number [facility] [address] [place] [address] * (ABNORMAL) REFRACTOMETER SPECIFIC GRAVITY, URINE (10/13/2004 4:33 EDT) Refractometer SG,Urine 1.036(H) 1.005 - 1.02 [facility] Comment: Refractometer specific gravity Results greater than 1.035 suggest possible interference from glucose or radiographic dye. 10/13/2004 4:33 EDT 10/13/2004 4:33 EDT us Hilton Álvarez MD URINALYSIS ORDERABLES Jacquie l Result Performing Organization Address [facility] Co de Phone Number [facility] [address] [place] [address] * SODIUM, URINE RANDOM (10/13/2004 4:33 EDT) Sodium, Ur 168.0 mEq/L [facility] 10/13/2004 4:33 EDT 10/13/2004 4:33 EDT Hilton Álvarez MD URINALYSIS ORDERABLES Jacqiue l Result Performing Organization Address [facility] de Phone Number [facility] [address] [place] [address] * OSMOLALITY (10/13/2004 4:15 EDT) Osmolality Cintia 287 MOS/KG SHERI [facility] 10/13/2004 4:15 EDT 10/13/2004 4:33 EDT Hilton Álvarez MD CHEMISTRY & BLOOD GAS ORDEmerald HANNON Final Result Performing Organization Address [facility] de Phone Number [facility] [address] [place] [address] * (ABNORMAL) ELECTROLYTES (10/13/2004 4:15 EDT) Sodium 135(L) 136 - 145 mEq/L [facility] Potassium 3.7 3.6 - 5.2 mEq/L [facility] Chloride 101 96 - 110 mEq/L [facility] CO2 25 24 - 32 mEq/L [facility] 10/13/2004 4:15 EDT 10/13/2004 4:33 EDT Hilton Álvarez MD CHEMISTRY & BLOOD GAS ORDE RABREBECA Final Result Performing Organization Address [facility] de Phone Number [facility] [address] [place] [address] * SODIUM (10/13/2004 2:03 EDT) Sodium 138 136 - 145 mEq/L [facility] 10/13/2004 2:03 EDT 10/13/2004 2:03 EDT Hilton Álvarez MD CHEMISTRY & BLOOD GAS ORDE [facility] Final Result Performing Organization Address [facility] de Phone Number [facility] [address] [place] [address] * (ABNORMAL) BLOOD GAS, G3 ISTAT (10/13/2004 0:01 EDT) pH, i-STAT 7.48(H) 7.35 - 7.45 [facility] pCO2, i-STAT 35 35 - 45 mmHg [facility] pO2, i-STAT 115(H) 85 - 100 mmHg [facility] TCO2, i-STAT 27 mEq/L [facility]NANCY R [facility] O2 Saturation 99 % FLEMARSHA ER [facility] Temperature 36.2 C [facility]NA[facility]STER [facility] FIO2 .50 [facility] Vent Support MODE:IMV,TYPE:V olume,RATE=13,P EEP=05 [facility] Sample Type Arterial [facility] frozen foods manager [place] [id number] Test Performed by Respiratory [facility] 10/13/2004 0:01 EDT 10/13/2004 5:02 EDT Hilton Álvarez MD CHEMISTRY & BLOOD GAS [facility]DE [facility] Final Result Performing Organization Address [facility] de Phone Number [facility] [address] [place] [address] * PORTABLE CHEST 1 VIEW (10/12/2004 23:30 EDT) Anatomical Region Laterality Modality Other 10/12/2004 23:3 0 EDT Impressions 03/02/2009 13:28 EDT IMPRESSION: 1. New mild right lower lobe atelectasis. 2. Satisfactory positioning of tubes. /jv Narrative 03/02/2009 13:28 EDT HX BRAIN TUMOR S/P INTUBATION CHECK ET TUBE R/O EDEMA/EFFUSION PORTABLE CHEST 1 VIEW 10/12/04 [id number] Comparison is made with 10/10/04. The endotracheal [...] left ethmoid sinuses. The ventricles are age-appropriate. /[facility] Narrative 03/02/2009 13:28 EDT S/P SUPRACELLAR [...] left ethmoid sinuses. The ventricles are age-appropriate. /[facility] us Tony Gómez MD IMG CT ORDERABLES Final R esult * OSMOLALITY, URINE (10/12/2004 23:00 EDT) Osmolality, Ur 803 MOS/KG MELONIE [facility] 10/12/2004 23:0 0 EDT 10/12/2004 23:25 EDT Hilton Álvarez MD URINALYSIS ORDERABLES Jacquie nur Result [facility] [address] [place] [address] * SODIUM, URINE RANDOM (10/12/2004 23:00 EDT) Sodium, Ur 115.0 mEq/L [facility] 10/12/2004 23:0 0 EDT 10/12/2004 23:25 EDT Hilton Álvarez MD URINALYSIS ORDERABLES Jacquie l Result Performing Organization Address [facility] de Phone Number [facility] [address] [place] [address] * PTT (10/12/2004 23:00 EDT) Pathologist [facility] PTT 28 23 - 34 secs [facility] Comment:Therapeutic Heparin range: 72-120 seconds 10/12/2004 23:0 0 EDT 10/12/2004 23:25 EDT Hilton Álvarez MD HEMATOLOGY & PF4 ORDERABLE S Final Result Performing Organization Address [facility] Phone Number [facility] [address] [place] [address] * (ABNORMAL) PROTIME (10/12/2004 23:00 EDT) Pro [...] ORDERABLE S Final Result Performing Organization Address [facility] de Phone Number [facility] [address] [place] [address] * OSMOLALITY (10/12/2004 23:00 EDT) Osmolality Cintia 294 MOS/KG SHERI AL[facility] 10/12/2004 23:0 0 EDT 10/12/2004 23:25 EDT Hilton Álvarez MD CHEMISTRY & BLOOD GAS ORDE [facility] Final Result Performing Organization Address [facility] Co de Phone Number [facility] [address] [place] [address] * ELECTROLYTES (10/12/2004 23:00 EDT) Sodium 136 136 - 145 mEq/L [facility] Potassium 3.9 3.6 - 5.2 mEq/L [facility] Chloride 103 96 - 110 mEq/L [facility] CO2 26 24 - 32 mEq/L [facility] 10/12/2004 23:0 0 EDT 10/12/2004 23:25 EDT Hilton Álvarez MD CHEMISTRY & BLOOD GAS ORDE [facility] Final Result Performing Organization Address [facility] de Phone Number [facility] [address] [place] [address] * CREATININE (10/12/2004 23:00 EDT) Creatinine 0.8 0.6 - 1.2 mg/dl [facility] 10/12/2004 23:0 0 EDT 10/12/2004 23:25 EDT Hilton Álvarez MD HISTORICAL LAB FOR SQ LOAD Final Result Performing Organization Address [facility] de Phone Number [facility] [address] [place] [address] * (ABNORMAL) HEMAGRAM (10/12/2004 23:00 EDT) WBC [...] Result Performing Organization Address [facility] Co de Phone Number [facility] [address] [place] [address] * BUN (10/12/2004 23:00 EDT) BUN 18 8 - 21 mg/dl [facility] 10/12/2004 23:0 0 EDT 10/12/2004 23:25 EDT Hilton Álvarez MD CHEMISTRY & BLOOD GAS ORDE [facility] Final Result Performing Organization Address [facility] de Phone Number AN[facility]HA [facility] [address] [place] [address] * CT ANGIO HEAD (10/12/2004 22:49 EDT) Anatomical Region Laterality Modality Other 10/12/2004 22:4 9 EDT Narrative 03/02/2009 13:28 EDT 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 VESSELS CT ANGIOGRAPHY OF THE [place]: 10/12/2004, 22:35 PM IMPRESSIONS: Anatomical variation of the [place], but no vascular occlusion is demonstrated. CLINICAL HISTORY: Status post craniopharyngeal resection with clipping bleeding vessel. Evaluate intracranial circulation. TECHNIQUE: Dynamic contrast enhanced scans of the [place] were obtained with off line [...] R/O EVAL. VESSELS CT ANGIOGRAPHY OF [place]: 10/12/2004, 22:35 PM IMPRESSIONS: Anatomical variation of the [place], but no vascular occlusion is demonstrated. CLINICAL HISTORY: Status post craniopharyngeal resection with clipping bleeding vessel. Evaluate intracranial circulation. TECHNIQUE: Dynamic contrast enhanced scans of the [place] were obtained with off line [...] [facility] Sample Type Arterial [facility] [place] [employer] manager [place] [id number] Test performed by Anesthesia. [facility] 10/12/2004 19:3 1 EDT 10/13/2004 7:36 EDT us Hilton Álvarez MD CHEMISTRY & BLOOD GAS [facility] Final Result [facility] [address] [place] [address] * (ABNORMAL) BLOOD GAS, EG6 ISTAT (10/12/2004 [...] [facility] Sample Type Arterial [facility] [place] [employer] manager [place] [id number] Test performed by Anesthesia. [facility] 10/12/2004 16:3 9 EDT 10/13/2004 7:33 EDT us Hilton Álvarez MD CHEMISTRY & BLOOD GAS [facility] Final Result Performing Organization Address [facility] de Phone Number [facility] [address] [place] [address] * (ABNORMAL) BLOOD GAS, EG6 ISTAT (10/12/2004 [...] [facility] Sample Type Arterial ANISHA [place] frozen [employer] manager [place] [id number] Test performed by Anesthesia. [facility] 10/12/2004 15:2 9 EDT 10/13/2004 7:32 EDT us Hilton Álvarez MD CHEMISTRY & BLOOD GAS [facility] Final Result Performing Organization Address [facility] de Phone Number [facility] [address] [place] [address] * GLUCOSE, GLUCOMETER (10/12/2004 15:21 EDT) Glucose, Fingerstick 109 70 - 110 mg/dl [facility] Dietitian Consultant ID [id number] Test Performed by Nursing Services [facility] 10/12/2004 15:2 1 EDT 10/13/2004 7:27 EDT us Hilton Álvarez MD CHEMISTRY & BLOOD GAS ORDE R[facility] Final Result [facility] [address] [place] [address] * SURGICAL PATHOLOGY (10/12/2004 0:00 EDT) Pathology Report: SURGICAL PATHOLOGY REPORT Reports generated via electronic interface contain original data; however they are lacking the format of the original report. Caution should be taken when reading/interpreti ng unformatted reports. Name: ? MIGUEL ANGEL BURGOS ? Accession #: ? [id number] ? : ? 1990 (Age: 14) ??M [...] x 0.6 x 0.2 cm in aggregate. Semiautomatic Taper Operator tissue is submitted for scrape preparation and [...] ORDERABLES Final Result [facility] [address] [place] [address] * CHEST PA (10/10/2004 14:35 EDT) Anatomical [...] The bony structures appear normal for age. /[facility] Procedure Note Delgado Valdes Jr., MD [...] The bony structures appear normal for age. /[facility] Hilton Álvarez MD IMG DIAGNOSTIC IMAGING [...] secondary to the most recent transsphenoidal surgery. [facility] Narrative 03/02/2009 11:36 EDT S/P [...] secondary to the most recent transsphenoidal surgery. [facility] us Hilton Álvarez MD IMG MRI ORDERABLES Final R esult * REFRACTOMETER SPECIFIC GRAVITY, URINE (10/08/2004 16:00 EDT) Refractometer SG,Urine 1.022 1.005 - 1.02 [facility] Comment:Refractometer specif ic gravity 10/08/2004 16:0 0 EDT 10/08/2004 16:14 EDT Hilton Álvarez MD URINALYSIS ORDERABLES Jacquie l Result Performing Organization Address [facility] Phone Number [facility] [address] [place] [address] * OSMOLALITY, URINE (10/08/2004 8:30 EDT) Osmolality, Ur 906 MOS/KG [facility] 10/08/2004 8:30 EDT 10/08/2004 8:40 EDT Hilton Álvarez MD URINALYSIS ORDERABLES Jacquie l Result Performing Organization Address [facility] Phone Number [facility] [address] [place] [address] * SODIUM, URINE RANDOM (10/08/2004 8:30 EDT) Pathologist [facility] Sodium, Ur 137.0 mEq/L [facility] 10/08/2004 8:30 EDT 10/08/2004 8:40 EDT us Hilton Álvarez MD URINALYSIS ORDERABLES Jacquie l Result Performing Organization Address [facility] de Phone Number [facility] [address] [place] [address] * OSMOLALITY, URINE (10/08/2004 0:30 EDT) Osmolality, Ur 727 MOS/KG [facility] 10/08/2004 0:30 EDT 10/08/2004 0:32 EDT us Hilton Álvarez MD URINALYSIS ORDERABLES Jacquie l Result Performing Organization Address City/[facility] de Phone Number [facility] [address] [place] [address] * SODIUM, URINE RANDOM (10/08/2004 0:30 EDT) [facility] Sodium, Ur 186.0 mEq/L [facility] 10/08/2004 0:30 EDT 10/08/2004 0:32 EDT Hilton Álvarez MD URINALYSIS ORDERABLES Jacquie l Result Performing Organization Address [facility] de Phone Number [facility] [address] [place] [address] * OSMOLALITY (10/08/2004 0:25 EDT) [facility] Osmolality Cintia 302 MOS/KG SHERI [facility] 10/08/2004 0:25 EDT 10/08/2004 0:32 EDT Hilton Álvarez MD CHEMISTRY & BLOOD GAS ORDE [facility] Final Result Performing Organization Address [facility] de Phone Number [facility] [address] [place] [address] * (ABNORMAL) ELECTROLYTES (10/08/2004 0:25 EDT) [facility] Sodium 145 136 - 145 mEq/L [facility] Potassium 3.2(L) 3.6 - 5.2 mEq/L [facility] Chloride 116(H) 96 - 110 mEq/L [facility] CO2 19(L) 24 - 32 mEq/L [facility] 10/08/2004 0:25 EDT 10/08/2004 0:32 EDT Hilton Álvarez MD CHEMISTRY & BLOOD GAS ORDE RABLES Final Result Performing Organization Address [facility] de Phone Number [facility] [address] [place] [address] * REFRACTOMETER SPECIFIC GRAVITY, URINE (10/07/2004 19:00 EDT) Refractometer SG,Urine 1.021 1.005 - 1.02 [facility] Comment:Refractometer specif ic gravity 10/07/2004 19:0 0 EDT 10/07/2004 19:38 EDT Hilton Álvarez MD URINALYSIS ORDERABLES Jacquie l Result Performing Organization Address [facility] Phone Number [facility] [address] [place] [address] * OSMOLALITY, URINE (10/07/2004 19:00 EDT) Osmolality, Ur 817 MOS/KG HOLLY [facility] 10/07/2004 19:0 0 EDT 10/07/2004 19:38 EDT Hilton Álvarez MD URINALYSIS ORDERABLES Jacquie l Result Performing Organization Address [facility] Phone Number [place] [address] * SODIUM, URINE RANDOM (10/07/2004 19:00 EDT) Sodium, Ur 272.0 mEq/L ANISHA [facility] 10/07/2004 19:0 0 EDT 10/07/2004 19:38 EDT Hilton Álvarez MD URINALYSIS ORDERABLES Jacquie l Result Performing Organization Address [facility] Phone Number [facility] [address] [place] [address] * OSMOLALITY (10/07/2004 19:00 EDT) Osmolality Cintia 300 MOS/KG SHERI ALMEIDA [facility] 10/07/2004 19:0 0 EDT 10/07/2004 19:37 EDT Hilton Álvarez MD CHEMISTRY & BLOOD GAS [facility] Final Result Performing Organization Address [facility] Phone Number [facility] [address] [place] [address] * ELECTROLYTES (10/07/2004 19:00 EDT) Sodium 144 136 - 145 mEq/L [facility] Potassium 3.8 3.6 - 5.2 mEq/L [facility] Chloride 109 96 - 110 mEq/L [facility] CO2 25 24 - 32 mEq/L [facility] 10/07/2004 19:0 0 EDT 10/07/2004 19:37 EDT Hilton Álvarez MD CHEMISTRY & BLOOD GAS ORDE [facility] Final Result Performing Organization Address [facility] de Phone Number [facility] [address] [place] [address] * REFRACTOMETER SPECIFIC GRAVITY, URINE (10/07/2004 11:47 EDT) Pathologist [facility] Refractometer SG,Urine 1.019 1.005 - 1.02 [facility] Comment: Refractometer specific gravity Results greater than 1.035 suggest possible interference from glucose or radiographic dye. 10/07/2004 11:4 7 EDT 10/07/2004 11:47 EDT Hilton Álvarez MD URINALYSIS ORDERABLES Jacquie l Result Performing Organization Address [facility] de Phone Number [facility] [address] [place] [address] * OSMOLALITY, URINE (10/07/2004 11:47 EDT) Pathologist [facility] Osmolality, Ur 801 MOS/KG HOLLY [facility] 10/07/2004 11:4 7 EDT 10/07/2004 11:47 EDT Hilton Álvarez MD URINALYSIS ORDERABLES Jacquie l Result Performing Organization Address [facility] Co de Phone Number [facility] [address] [place] [address] * SODIUM, URINE RANDOM (10/07/2004 11:47 EDT) Sodium, Ur 198.0 mEq/L [facility] 10/07/2004 11:4 7 EDT 10/07/2004 11:47 EDT us Hilton Álvarez MD URINALYSIS ORDERABLES Jacquie l Result Performing Organization Address [facility] de Phone Number [facility] [address] [place] [address] * REFRACTOMETER SPECIFIC GRAVITY, URINE (10/07/2004 4:20 EDT) Refractometer SG,Urine 1.017 1.005 - 1.02 [facility] Comment:Refractometer specif ic gravity 10/07/2004 4:20 EDT 10/07/2004 4:20 EDT us Hilton Álvarez MD URINALYSIS ORDERABLES Jacquie l Result Performing Organization Address [facility] de Phone Number [facility] [address] [place] [address] * OSMOLALITY, URINE (10/07/2004 4:20 EDT) Osmolality, Ur 682 MOS/KG HOLLY [facility] 10/07/2004 4:20 EDT 10/07/2004 4:20 EDT us Hilton Álvarez MD URINALYSIS ORDERABLES Jacquie l Result Performing Organization Address [facility] Co de Phone Number [facility] [address] [place] [address] * SODIUM, URINE RANDOM (10/07/2004 4:20 EDT) Sodium, Ur 122.0 mEq/L [facility] 10/07/2004 4:20 EDT 10/07/2004 4:20 EDT us Hilton Álvarez MD URINALYSIS ORDERABLES Jacquie l Result Performing Organization Address City/[facility]/ZIP Co de Phone Number [facility] [address] [place] [address] * OSMOLALITY (10/07/2004 4:20 EDT) Pathologist [facility] Osmolality Cintia 304 MOS/KG SHERI [facility] 10/07/2004 4:20 EDT 10/07/2004 4:20 EDT Hilton Álvarez MD CHEMISTRY & BLOOD GAS ORDE [facility] Final Result Performing Organization Address [facility] de Phone Number [facility] [address] [place] [address] * (ABNORMAL) ELECTROLYTES (10/07/2004 4:20 EDT) [facility] Sodium 145 136 - 145 mEq/L [facility] Potassium 3.9 3.6 - 5.2 mEq/L [facility] Chloride 111(H) 96 - 110 mEq/L [facility] CO2 25 24 - 32 mEq/L ANISHA [facility] 10/07/2004 4:20 EDT 10/07/2004 4:20 EDT Hilton Álvarez MD CHEMISTRY & BLOOD GAS ORDE [facility] Final Result Performing Organization Address [facility] Phone Number [facility] [address] [place] [address] * REFRACTOMETER SPECIFIC GRAVITY, URINE (10/06/2004 18:33 EST) [facility] Refractometer SG,Urine 1.021 1.005 - 1.02 [facility] Comment: Refractometer specific gravity Results greater than 1.035 suggest possible interference from glucose or radiographic dye. 10/06/2004 18:3 3 EST 10/06/2004 18:33 EST Hilton Álvarez MD URINALYSIS ORDERABLES Jacquie l Result Performing Organization Address [facility] de Phone Number [facility] [address] [place] [address] * OSMOLALITY, URINE (10/06/2004 18:33 EST) Osmolality, Ur 782 MOS/KG HOLLY HER [facility] 10/06/2004 18:3 3 EST 10/06/2004 18:33 EST Hilton Álvarez MD URINALYSIS ORDERABLES Jacquie l Result Performing Organization Address [facility] de Phone Number [facility] [address] [place] [address] * SODIUM, URINE RANDOM (10/06/2004 18:33 EST) Sodium, Ur 138.0 mEq/L [facility] 10/06/2004 18:3 3 EST 10/06/2004 18:33 EST Hilton Álvarez MD URINALYSIS ORDERABLES Jacquie l Result Performing Organization Address [facility] Phone Number [facility] [address] [place] [address] * OSMOLALITY (10/06/2004 18:32 EST) Osmolality Cintia 303 MOS/KG SHERI ALMEIDA [facility] 10/06/2004 18:3 2 EST 10/06/2004 18:32 EST Hilton Álvarez MD CHEMISTRY & BLOOD GAS [facility] Final Result Performing Organization Address [facility] Phone Number [facility] [address] [place] [address] * (ABNORMAL) ELECTROLYTES (10/06/2004 18:32 EST) Sodium [...] RABLES Final Result [facility] [address] [place] [address] * OSMOLALITY (10/06/2004 14:45 EST) Osmolality Cintia 306 MOS/KG MELONIENoe ELLE [facility] 10/06/2004 14:4 5 EST 10/06/2004 14:51 EST us Hilton Álvarez MD CHEMISTRY & BLOOD GAS [facility]DE [facility] Final Result Performing Organization Address City/[facility] Co de Phone Number [facility] [address] [place] [address] * (ABNORMAL) ELECTROLYTES (10/06/2004 14:45 EST) Pathologist [facility] Sodium 146(H) 136 - 145 mEq/L [facility] Potassium 3.7 3.6 - 5.2 mEq/L [facility] Chloride 111(H) 96 - 110 mEq/L [facility] CO2 26 24 - 32 mEq/L [facility] 10/06/2004 14:4 5 EST 10/06/2004 14:51 EST Hilton Álvarez MD CHEMISTRY & BLOOD GAS ORDE RABLES Final Result Performing Organization Address City/[facility] Co de Phone Number [facility] [address] [place] [address] * REFRACTOMETER SPECIFIC GRAVITY, URINE (10/06/2004 14:45 EST) Pathologist [facility] Refractometer SG,Urine 1.021 1.005 - 1.02 [facility] 10/06/2004 14:4 5 EST 10/06/2004 14:52 EST us Hilton Álvarez MD URINALYSIS ORDERABLES Jacquie l Result [facility] [address] [place] [address] * OSMOLALITY, URINE (10/06/2004 14:45 EST) Osmolality, Ur 762 MOS/KG HOLLY [facility] 10/06/2004 14:4 5 EST 10/06/2004 14:52 EST Hilton Álvarez MD URINALYSIS ORDERABLES Jacquie l Result Performing Organization Address [facility] Phone Number [facility] [address] [place] [address] * SODIUM, URINE RANDOM (10/06/2004 14:45 EST) Sodium, Ur 132.0 mEq/L [facility] 10/06/2004 14:4 5 EST 10/06/2004 14:52 EST Hilton Álvarez MD URINALYSIS ORDERABLES Jacquie l Result Performing Organization Address [facility] Phone Number [facility] [address] [place] [address] * OSMOLALITY (10/06/2004 11:00 EST) Osmolality Cintia 299 MOS/KG SHERI ALMEIDA [facility] 10/06/2004 11:0 0 EST 10/06/2004 11:08 EST Hilton Álvarez MD CHEMISTRY & BLOOD GAS [facility] Final Result Performing Organization Address [facility] de Phone Number [facility] [address] [place] [address] * ELECTROLYTES (10/06/2004 11:00 EST) Sodium 145 136 - 145 mEq/L [facility] Potassium 3.6 3.6 - 5.2 mEq/L [facility] Chloride 110 96 - 110 mEq/L [facility] CO2 25 24 - 32 mEq/L [facility] 10/06/2004 11:0 0 EST 10/06/2004 11:08 EST Hilton Álvarez MD CHEMISTRY & BLOOD GAS [facility] Final Result Performing Organization Address [facility] Co de Phone [place] [address] * REFRACTOMETER SPECIFIC GRAVITY, URINE (10/06/2004 11:00 EST) Refractometer SG,Urine 1.019 1.005 - 1.02 [facility] 10/06/2004 11:0 0 EST 10/06/2004 11:10 EST Hilton Álvarez MD URINALYSIS ORDERABLES Jacquie l Result Performing Organization Address [facility] Phone Number [place] [address] * OSMOLALITY, URINE (10/06/2004 11:00 EST) Osmolality, Ur 735 MOS/KG [facility] 10/06/2004 11:0 0 EST 10/06/2004 11:10 EST Hilton Álvarez MD URINALYSIS ORDERABLES Jacquie l Result Performing Organization Address [facility] de Phone Number [place] [address] * SODIUM, URINE RANDOM (10/06/2004 11:00 EST) Sodium, Ur 140.0 mEq/L [facility] 10/06/2004 11:0 0 EST 10/06/2004 11:10 EST Hilton Álvarez MD URINALYSIS ORDERABLES Jacquie l Result Performing Organization Address [facility] Co de Phone Number [place] [address] * OSMOLALITY, URINE (10/06/2004 6:40 EST) Osmolality, Ur 522 MOS/KG [facility] 10/06/2004 6:40 EST 10/06/2004 7:03 EST Hilton Álvarez MD URINALYSIS ORDERABLES Jacquie l Result Performing Organization Address [facility] Phone Number [facility] [address] [place] [address] * SODIUM, URINE RANDOM (10/06/2004 6:40 EST) Sodium, Ur 92.0 mEq/L [facility] 10/06/2004 6:40 EST 10/06/2004 7:03 EST Hilton Álvarez MD URINALYSIS ORDERABLES Jacquie l Result Performing Organization Address [facility] Phone Number [facility] [address] [place] [address] * OSMOLALITY (10/06/2004 6:40 EST) Osmolality Cintia 301 MOS/KG SHERI [facility] 10/06/2004 6:40 EST 10/06/2004 7:01 EST Hilton Álvarez MD CHEMISTRY & BLOOD GAS ORDE RABLES Final Result Performing Organization Address [facility] Phone Number [facility] [address] [place] [address] * ELECTROLYTES (10/06/2004 6:40 EST) Sodium 142 [...] Result Performing Organization Address [facility] Co de Phone Number [facility] [address] [place] [address] * OSMOLALITY (10/06/2004 2:44 EST) Osmolality Cintia 295 MOS/KG SHERI [facility] 10/06/2004 2:44 EST 10/06/2004 2:44 EST Hilton Álvarez MD CHEMISTRY & BLOOD GAS ORDE RABLES Final Result Performing Organization Address [facility] de Phone Number [facility] [address] [place] [address] * ELECTROLYTES (10/06/2004 2:44 EST) Sodium 143 136 - 145 mEq/L [facility] Potassium 4.0 3.6 - 5.2 mEq/L [facility] Chloride 107 96 - 110 mEq/L [facility] CO2 28 24 - 32 mEq/L [facility] 10/06/2004 2:44 EST 10/06/2004 2:44 EST Hilton Álvarez MD CHEMISTRY & BLOOD GAS ORDE RABLES Final Result Performing Organization Address [facility] Phone Number [facility] [address] [place] [address] * OSMOLALITY, URINE (10/06/2004 2:43 EST) Osmolality, Ur 628 MOS/KG MELONIETEA HER [facility] 10/06/2004 2:43 EST 10/06/2004 2:43 EST Hilton Álvarez MD URINALYSIS ORDERABLES Jacquie l Result Performing Organization Address [facility] de Phone Number [facility] [address] [place] [address] * SODIUM, URINE RANDOM (10/06/2004 2:43 EST) Sodium, Ur 115.0 mEq/L [facility] 10/06/2004 2:43 EST 10/06/2004 2:43 EST Hilton Álvarez MD URINALYSIS ORDERABLES Jacquie l Result [facility] [address] [place] [address] * OSMOLALITY, URINE (10/05/2004 22:11 EST) Osmolality, Ur 229 MOS/KG MELONIETEA HER [facility] 10/05/2004 22:1 1 EST 10/05/2004 22:11 EST us Hilton Álvarez MD URINALYSIS ORDERABLES Jacquie l Result [facility] [address] [place] [address] * SODIUM, URINE RANDOM (10/05/2004 22:11 EST) Sodium, Ur 28.0 mEq/L [facility] 10/05/2004 22:1 1 EST 10/05/2004 22:11 EST Hilton Álvarez MD URINALYSIS ORDERABLES Jacquie l Result Performing Organization Address [facility] Co de Phone Number [facility] [address] [place] [address] * OSMOLALITY (10/05/2004 22:10 EST) Osmolality Cintia 297 MOS/KG SHERI [facility] 10/05/2004 22:1 0 EST 10/05/2004 22:10 EST Hilton Álvarez MD CHEMISTRY & BLOOD GAS ORDE RABLES Final Result [facility] [address] [place] [address] * ELECTROLYTES (10/05/2004 22:10 EST) Sodium 144 [...] HANNON Final Result [facility] [address] [place] [address] * CT HEAD WO CONTRAST (10/05/2004 20:26 [...] 2. No hydrocephalus or intraparenchymal hemorrhage identified. /[facility] Trice Scott MD IMG CT ORDERABLES Final Re sult * OSMOLALITY, URINE (10/05/2004 18:24 EST) Osmolality, Ur 754 MOS/KG [facility] 10/05/2004 18:2 4 EST 10/05/2004 18:29 EST Hilton Álvarez MD URINALYSIS ORDERABLES Jacquie nur Result [facility] [address] [place] [address] * SODIUM, URINE RANDOM (10/05/2004 18:24 EST) Sodium, Ur 216.0 mEq/L [facility] 10/05/2004 18:2 4 EST 10/05/2004 18:29 EST Hilton Álvarez MD URINALYSIS ORDERABLES Jacquie l Result Performing Organization Address [facility] de Phone Number [facility] [address] [place] [address] * OSMOLALITY (10/05/2004 18:06 EST) Osmolality Cintia 294 MOS/KG SHERI [facility] 10/05/2004 18:0 6 EST 10/05/2004 18:06 EST Hilton Álvarez MD CHEMISTRY & BLOOD GAS [facility]DE [facility] Final Result Performing Organization Address [facility] de Phone Number [facility] [address] [place] [address] * ELECTROLYTES (10/05/2004 18:06 EST) Sodium 141 136 - 145 mEq/L [facility] Potassium 4.4 3.6 - 5.2 mEq/L [facility] Chloride 106 96 - 110 mEq/L [facility] CO2 26 24 - 32 mEq/L [facility] 10/05/2004 18:0 6 EST 10/05/2004 18:06 EST Hilton Álvarez MD CHEMISTRY & BLOOD GAS ORDE RABLES Final Result Performing Organization Address [facility] de Phone Number [facility] [address] [place] [address] * OSMOLALITY, URINE (10/05/2004 15:36 EST) Osmolality, Ur 406 MOS/KG [facility] 10/05/2004 15:3 6 EST 10/05/2004 15:36 EST Hilton Álvarez MD URINALYSIS ORDERABLES Jacquie l Result Performing Organization Address [facility] de Phone Number [facility] [address] [place] [address] * SODIUM, URINE RANDOM (10/05/2004 15:36 EST) Sodium, Ur 109.0 mEq/L [facility] 10/05/2004 15:3 6 EST 10/05/2004 15:36 EST Hilton Álvarez MD URINALYSIS ORDERABLES Jacquie l Result Performing Organization Address [facility] de Phone Number [facility] [address] [place] [address] * OSMOLALITY (10/05/2004 14:19 EST) Pathologist [facility] Osmolality Cintia 296 MOS/KG SH[facility]I [facility] 10/05/2004 14:1 9 EST 10/05/2004 14:19 EST Hilton Álvarez MD CHEMISTRY & BLOOD GAS ORDE RABLES Final Result Performing Organization Address [facility] de Phone Number [facility] [address] [place] [address] * ELECTROLYTES (10/05/2004 14:19 EST) Pathologist [facility] Sodium 141 136 - 145 mEq/L [facility] Potassium 4.3 3.6 - 5.2 mEq/L [facility] Chloride 108 96 - 110 mEq/L [facility] CO2 26 24 - 32 mEq/L [facility] 10/05/2004 14:1 9 EST 10/05/2004 14:19 EST Hilton Álvarez MD CHEMISTRY & BLOOD GAS ORDE RABLES Final Result Performing Organization Address [facility] de Phone Number [facility] [address] [place] [address] * CREATININE (10/05/2004 14:19 EST) Pathologist [facility] Creatinine 0.7 0.6 - 1.2 mg/dl [facility] 10/05/2004 14:1 9 EST 10/05/2004 14:19 EST Hilton Álvarez MD HISTORICAL LAB FOR SQ LOAD Final Result Performing Organization Address City/[facility]/ZIP Co de Phone Number [facility] [address] [place] [address] * (ABNORMAL) HEMAGRAM (10/05/2004 14:19 EST) WBC [...] Result Performing Organization Address [facility] Co de Phone Number [facility] [address] [place] [address] * BUN (10/05/2004 14:19 EST) BUN 16 8 - 21 mg/dl [facility] 10/05/2004 14:1 9 EST 10/05/2004 14:19 EST Hilton Álvarez MD CHEMISTRY & BLOOD GAS ORDE RABLES Final Result Performing Organization Address City/[facility]/ZIP Co de Phone Number [facility] [address] [place] [address] * (ABNORMAL) GLUCOSE, GLUCOMETER (10/05/2004 14:16 EST) Glucose, Fingerstick 123(H) 70 - 110 mg/dl [facility] Dietitian Consultant ID [id number] Test Performed by Nursing Services [facility] 10/05/2004 14:1 6 EST 10/06/2004 0:42 EST us Hilton Álvarez MD CHEMISTRY & BLOOD GAS HERMES HANNON Final Result [facility] [address] [place] [address] documented in this encounter Visit Diagnoses Not on filedocumented in this encounter
--- OUTSIDE RECORDS SUMMARY | 2024-08-03 14:00 | XMS_ITS | Encounter Summary ---
[place] [address] Care Team Providers Care Car Dealer Name Role Phone Jimbo More Primary Care Provider + Reason for Referral * Diagnostic Test (Routine) - Authorized Specialty Diagnoses / Procedures Referred By Duyen bui Referred To Contact Radiology Diagnoses Schwannoma Procedures MRI Brain wwo Contrast (Generic) Eron Barriga MD [facility] [place] [address] [place] [address] [place] [address] Referral ID Status Reason Start Date Expiration Date Visits Requested Visits Authorized [id number] Authorized Specialty Service Requested 07/20/2024 01/17/2026 1 1 Encounter Details Date Type Department Care Team (Late st Contact Info) Description 07/20/2024 1:30 PM EST [place] [address] Eron Barriga MD [facility] [place] [address] [address] Schwannoma Social History Tobacco Use Types Packs/Day Years Used Date Smoking Tobacco: Never Smokeless Tobacco: Never Alcohol Use Standard Drinks/Week Comments No 0 (1 standard drink = 0.6 oz pur e alcohol) [facility] Utilities Answer Date Recorded In [...] any time in the past 12 m [facility], were you homeless or [...] blindness, completely hypopituitarism, epilepsy. Recently admitted to [facility] for hyponatremia. Found to have lesion in right middle fossa c/w schwannoma. Was reportedly seen on September CT (not available) but is not evident on 2018 CT. 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 Exam. Pt minimally interactive. No obvious EOM [...] site documented in this encounter Care Teams Car Dealer Relationship Specialty Start Date End Date Jimbo More [place] [place] [address] PCP - General Internal Medicine 06/18/24 documented as of this encounter
--- OUTSIDE RECORDS SUMMARY | 2024-08-03 14:00 | XMS_ITS | Encounter Summary ---
Author Organization [facility] Address [address] [place] [address] Care Team Providers Care Crown And Bridge Technician Name Role Phone Yan Demarco MD Primary Care Provider Corin Skinner MD Primary Care Provider Akil Serrano MD Primary Care Provider [phone] Encounter Details Date Type Department Care Team (Late st Contact Info) Description 11/15/2004 Before PRISM Converted Visit (Maple) [facility] - Maple conversion [address] [place] [address] Kylie Larson MD [address] [place] [phone] Social History Tobacco Use Types Packs/Day Years [...] last couple of days. Nursing over at [facility] will review his nursing care needs to see if they can provide the appropriate level of care for him. We will continue to monitor him over the next couple of days to assess for appropriate transition to the Rehab Service on Friday. d - 11/15/2004 16:16:25 - KYLIE LARSON MD t - 11/15/2004 16:50:13 - Voice ID - [id number] Document ID - [id number] cc: ANCELMO DIAZ MD, REFERRING PHYSICIAN This document has been electronically signed by KYLIE LARSON MD on 11/16/2004 15:48:37. l3 documented in this encounter Plan of Treatment Upcoming Encounters Date Type Department Care Team (Late st Contact Info) Description 10/01/2024 13:40 EDT Office Visit [facility] Endocrinology - [facility] [address] [facility] [facility] [address] [place] [address] Wilder Zaidi, DO [address] [facility] [address] [place] [address] documented as of this encounter Visit Diagnoses Not on filedocumented in this encounter Care Teams Crown And Bridge Technician Relationship Specialty Start Date End Date Yan Demarco MD [address] [place] [address] PCP - General 08/22/09 02/20/10 Corin Skinner MD [address] [place] [phone] PCP - General 10/24/08 08/21/09 Akil Serrano MD [address] [place] [address] PCP - General 02/21/10 04/16/11 documented as of this encounter
--- OUTSIDE RECORDS SUMMARY | 2024-08-03 14:00 | XMS_ITS | Encounter Summary ---
Author Organization [facility] Address [address] [place] [address] Care Team Providers Care Log Skidder Name Role Phone Yan Demarco MD Primary Care Provider [phone] Corin Skinner MD Primary Care Provider Akil Serrano MD Primary Care Provider [phone] Encounter Details Date Type Department Care Team (Late st Contact Info) Description 09/21/2004 Before PRISM Converted Visit (Maple) [facility] - Maple conversion [address] [place] [address] Ade Malloy MD [address] [place] [phone] Social History Tobacco Use Types Packs/Day Years Used Date Smoking Tobacco: Never Assessed Sex and Gender Information Value Date Recorded Sex Assigned at Not on file Legal Sex Male 18:35 EST Gender Identity Not on file Sexual Orientation Not on file documented as of this encounter Progress Notes * Ricki, Conv Planer Stone - 02/13/2011 1150 EDT INITIAL EVALUATION September 20, 2004 Kris Drew MD [address] [place] [address] [place] [address] Drew, I had the pleasure [...] The approach to this specific tumor will imtzy at least debulk it, entering in cyst, [...] damage, bleeding requiring blood transfusion, need for detention hormone replacement, seizures. They understand this and would like to proceed;knowing that the biggest threat here is that if it is left untreated it certainly will threaten hisgood eye. I will set him up for surgery on the of this month. I would like him to see our pediatric human resource consultant Dr. Edwards, and I have ordered a [...] MD on 09/24/2004 09:42:19. ADE MALLOY MD Nature Photographer [facility] Division of Neurological Surgery - ADE MALLOY MD - an Voice ID: [id number] Document ID: [id number] CC: KRIS MCKENNA MD documented in this encounter Plan of Treatment Upcoming Encounters Date Type Department Care Team (Late st Contact Info) Description 10/01/2024 13:40 EDT Office Visit [facility] Endocrinology - [facility] [address] [place] [address] Wilder Zaidi, [address] [facility] [address] [place] [address] documented as of this encounter Visit Diagnoses Not on filedocumented in this encounter Care Teams Log Skidder Relationship Specialty Start Date End Date Yan Demarco MD [address] [place] [phone] PCP - General 08/22/09 02/20/10 Corin Skinner MD [address] [place] [address] [phone] PCP - General 10/24/08 08/21/09 Akil Serrano MD [address] [place] [address],[facility] [address] [place] [address] PCP - General 02/21/10 04/16/11 documented as of this encounter
--- OUTSIDE RECORDS SUMMARY | 2024-08-03 14:00 | XMS_ITS | Encounter Summary ---
Author Organization [facility] Address [address] [place] [address] Care Team Providers Care Lining Baster Name Role Phone Yan Demarco MD Primary Care Provider Corin Skinner MD Primary Care Provider [phone] Akil Serrano MD Primary Care Provider [phone] Encounter Details Date Type Department Care Team (Late st Contact Info) Description 10/05/2004 Results Only [facility] Pediatric Neurology - [place] [address] [place], [place] [address] Ade Malloy MD [address] [place] [address] [phone] Social History Tobacco Use Types Packs/Day Years [...] Office Visit [facility] Endocrinology - [facility] [address] [place] [address] Wilder Zaidi, DO [address] [facility] [address] [place] [address] documented as of this encounter [...] MIGUEL ANGEL MASON ? Accession #: ? [id number] : ? 1990 (Age: 14) ??M ?Collect [...] cleft cyst. Clinical correlation is recommended. ??(Dr. Jimenez)/[facility] Document reviewed and electronically signed by: ? GABRIEL JACOBS MD [facility] Report Date: ??10/09/2004 12:19 By the signature [...] PATHOLOGY ORDERABLES Final Result Performing Organization Address City/State/[facility] Co de Phone Number [facility] [address] [place] [address] documented in this encounter Visit Diagnoses Not on filedocumented in this encounter Care Teams Lining Baster Relationship Specialty Start Date End Date Yan Demarco MD [address] [place] [address] PCP - General 08/22/09 02/20/10 Corin Skinner MD [address] [place] [phone] PCP - General 10/24/08 08/21/09 Akil Serrano MD [address] [place] [address] PCP - General 02/21/10 04/16/11 documented as of this encounter
--- OUTSIDE RECORDS SUMMARY | 2024-08-03 14:00 | XMS_ITS | Encounter Summary ---
Author Organization [facility] Address [address] [place] [address] Care Team Providers Care Virtual Assistant Name Role Phone Yan Demarco MD Primary Care Provider Corin Skinner MD Primary Care Provider [phone] Akil Serrano MD Primary Care Provider [phone] Encounter Details Date Type Department Care Team (Late st Contact Info) Description 10/08/2004 Before PRISM Converted Visit (Maple) [facility] - Maple conversion [address] [place] [address] Hilton Malloy MD [address] [place] [phone] Social History Tobacco Use Types Packs/Day Years Used Date Smoking Tobacco: Never Assessed Sex and Gender Information Value Date Recorded Sex Assigned at Not on file Legal Sex Male 18:35 EST Gender Identity Not on file Sexual Orientation Not on file documented as of this encounter Procedure Notes * Ricki, Conv Pit Shoveler - 02/13/2011 1243 EDT DATE: 10/05/2004 SURGEON: HILTON MALLOY MD VASCULAR TECH: JOSE ARMANDO ALEJO MD; ROSEY GUALLPA MD; [...] and his head was placed in the [employer] three-point headholder fixator device. At that point, [...] cyst. This was opened sharply with a Curtis blade scalpel, and immediately, a large amount [...] 10/08/2004 07:58:16 - jenn Voice ID - [id number] Document ID - [id number] cc: JOSE ARMANDO GUALLPA MD RESIDENT CONSTANTINO BERMUDEZ MD RESIDENT TOO DIAZ MD, REFERRING PHYSICIAN HILTON MALLOY MD, ATTENDING PHYSICIAN This document has been electronically signed by HILTON MALLOY MD on 10/08/2004 10:50:11. documented in this encounter Plan of Treatment Upcoming Encounters Date Type Department Care Team (Late st Contact Info) Description 10/01/2024 13:40 EDT Office Visit [facility] Endocrinology - [facility] [address] [place], [place] [id number] Wilder Zaidi, DO [address] [facility] [address] [place] [address] documented as of this encounter Visit Diagnoses Not on filedocumented in this encounter Care Teams Virtual Assistant Relationship Specialty Start Date End Date Yan Demarco MD [address] [place] [phone] PCP - General 08/22/09 02/20/10 Corin Skinner MD [address] [address] PCP - General 10/24/08 08/21/09 Akil Serrano MD [address] [facility] [address] PCP - General 02/21/10 04/16/11 documented as of this encounter
--- OUTSIDE RECORDS SUMMARY | 2024-08-03 14:00 | XMS_ITS | Clinical Summary ---
Author Organization [facility] Address [facility] [place] [address] Care Team Providers Care Library Serials Assistant Name Role Phone Jimbo More Primary Care [...] Description 07/28/2024 Transcribe Orders eDH Incoming Referrals [phone] Jimbo More PA Other injury of unspecified body region, initial encounter 07/20/2024 1:30 PM EST [place] [address] Eron Barriga MD Schwannoma 07/20/2024 Travel 06/16/2024 [place] [address] Lauren Ruby MD Appointment 2024 3:10 PM EST - 2024 4:30 [place] [address] RESOURCE, ANESTHESIA-[place] MRI WITH ANESTHESIA (WRVU *) 2024 2:56 PM [place] [address] Akin Mcneill MD 06/14/2024 9:50 AM EST Ancillary Procedure Radiology Library at [facility] K[place]Y Alarcon [address] 06/14/2024 12:57 AM EST - 06/21/2024 3:06 PM EST Hospital Encounter Neuro Special Care Unit Level 3 Wing [place] [address] Mariola Alfred MD Saunders, MD Lesli Deleon Elias E, MD Raicek, Jacqueline E, DO Amell, Fredrik B, MD Sleep disorder; Hyponatremia; Agitation Discharge Disposition: Shelter Facility 06/13/2024 Ancillary Procedure Radiology Library at [facility] [place] [address] Ren Vaz MD from Last 3 Months Social History Tobacco Use Types Packs/Day Years Used Date Smoking Tobacco: Never Smokeless Tobacco: Never Alcohol Use Standard Drinks/Week Comments No 0 (1 standard drink = 0.6 oz pur e alcohol) [facility] Utilities Answer Date Recorded In [...] in the past 12 m [facility], were you homeless or living in a alf (including now)? No 2024 [facility] Inpatient Questions Answer Date Recorded Prevent Contact [...] series) 03/07/2024 Medical Devices Implanted Type Area Flight Service Agent Device Identifier Shelf Expiration Date Model / Serial / Lot Screw,Baljinder,Stap,3 .5x80mm ([id number]) (Autoreq) - [id number] Implanted:Qty: 1 on 09/04/2017 by Amy Lance MD at [facility] IMPLANTS Left: Pelvis DO NOT USE [employer] - [id number] / / Screw,Baljinder,Stap,3 .5x34mm ([id number]) ([employer]ore[employer]) - [id number] Implanted:Qty: 1 on 09/04/2017 by Amy Lance MD at [facility] IMPLANTS Left: Pelvis DO NOT USE [employer] - [id number] / / Screw,Baljinder,Stap,3 .5x36mm ([id number]) ([employer]oreq) - [id number] Implanted:Qty: 1 on 09/04/2017 by Amy Lance MD at [facility] IMPLANTS Left: Pelvis DO NOT USE [employer] - [id number] / / Screw,Baljinder,Stap,3 .5x50mm ([id number]) - [id number] Implanted:Qty: 2 on 09/04/2017 by Amy Lance MD at [facility] IMPLANTS Left: Pelvis DO NOT USE [employer] - [id number] / / Screw,Baljinder,Stap,3 .5x55mm ([id number]) - [id number] Implanted:Qty: 3 on 09/04/2017 by Amy Lance MD at [facility] IMPLANTS Left: Pelvis DO NOT USE [employer] - [id number] / / Screw,Baljinder,Stap,3 .5x60mm ([id number]) - [id number] Implanted:Qty: 1 on 09/04/2017 by Amy Lance MD at [facility] IMPLANTS Left: Pelvis DO NOT USE [employer] - [id number] / / Screw,Baljinder,Stap,3 .5x65mm ([id number]) - [id number] Implanted:Qty: 2 on 09/04/2017 by Amy Lance MD at [facility] IMPLANTS Left: Pelvis DO NOT USE [employer] - [id number] / / Suprapectineal Plate (Qls Left) Implanted:Qty: 1 on 09/04/2017 by Amy Lance MD at [facility] Left: Pelvis 07/06/2022 [id number] / / [id number] 3.5mm Cortical Screw Self Tap 45mm Implanted:Qty: 1 on 09/04/2017 by Amy Lance MD at [facility] Left: Pelvis [id number] / / Explanted Type Area Flight Service Agent Device Identifier Shelf Expiration Date Model / Serial / Lot K-Wire [id number] Explanted:Qty: 1 on 09/04/2017 by Amy Lance MD at [facility] Left: Pelvis [id number] / / [id number] Procedures Procedure Name Priority Date/Time Associated Diagnosis [...] 2024 4:20 PM EST Unlisted Mri Procedure (72249) 2024 2:56 PM EST Please evaluate lesion [...] 06/14/2024 9:46 AM EST URINALYSIS BEAKER MICROSCOPIC ([facility]) SHEEBA 06/14/2024 8:06 AM EST URINALYSIS MICROSCOPIC [...] EST Martinez Reynolds MD HEMATOLOGY ORDERABLE S [facility] [place] [address] * Phosphorus (06/21/2024 12:50 AM EST) Only the most recent of9 resultswithin the time period is included. Pathologist [facility] Phosphorus 3.2 2.5 - 4.5 mg/dL 06/21/2024 1:30 AM EST [facility] Blood VENOUS BLOOD SPECIMEN / Unknown Venipuncture / Unknown 06/21/2024 12:50 AM EST 06/21/2024 12:56 AM EST Martinez Reynolds MD CHEMISTRY ORDERABLES Performing Organization Address [facility] de Phone Number [facility] [place] [address] * Magnesium (06/21/2024 12:50 AM EST) Only the most recent of9 resultswithin the time period is included. [facility] Magnesium 0.81 0.69 - 1.07 mMol/L 06/21/2024 1:30 AM [facility] Blood VENOUS BLOOD SPECIMEN / Unknown Venipuncture / Unknown 06/21/2024 12:50 AM EST 06/21/2024 12:56 AM EST Martinez Reynolds MD CHEMISTRY ORDERABLES Performing Organization Address [facility] Phone Number [facility] [place] [address] * (ABNORMAL) Hepatic Function Panel (06/21/2024 12:50 AM EST) Only the most recent of5 resultswithin the time period is included. Pathologist [facility] Albumin 4.0 3.2 - 5.2 g/dL 06/21/2024 1:30 AM EST [facility] Aspartate Aminotransferase 47(H) <=39 [...] AM EST Martinez Reynolds MD CHEMISTRY ORDERABLES [facility] [place] [address] * (ABNORMAL) Basic Metabolic Panel (06/21/2024 12:50 [...] - 10.5 mg/dL 06/21/2024 1:44 AM EST [facility] Est Glomerular Filtration Rate - Male 118 mL/min/1. 73 m?? 06/21/2024 1:44 AM EST [facility] Comment: This patient's estimated [...] AM EST Martinez Reynolds MD CHEMISTRY ORDERABLES [facility] [place] [id number] * Scan Doc: Telemetry Strips (06/20/2024 9:23 AM EST) Only the most recent of4 resultswithin the time period is included. Narrative 06/20/2024 9:23 AM EST Ordered by an unspecified provider. Scanning Provider MEDIA MGR SCAN EXT O RDR/RSLT * (ABNORMAL) Urinalysis with reflex Culture (06/19/2024 3:22 AM EST) Glucose, Urine Dipstick Negative Negative 06/19/2024 3:37 AM EST [facility] Protein, Urine Dipstick Negative Negative 06/19/2024 3:37 AM EST [facility] Bilirubin, Urine Dipstick Negative Negative 06/19/2024 3:37 AM EST [facility] Comment:Clinical correlation required for [...] 3:37 AM [facility] Specific [place] Urine Automated 1.021 1.005 - 1.030 06/19/2024 [...] AM EST Pamela [place] [address] * XR Chest One View (06/18/2024 7:55 PM EST) Only the most recent of2 resultswithin the time period is included. WORKSTATION ID [id number] RAD Anatomical Region Laterality Modality Chest N/A [...] who have questions please contact the health respiratory care instructor that requested your imaging first. ? Electronically signed by: Tobias Sotomayor MD, [facility] ([phone]), at 06/18/2024 8:09 PM Narrative 06/18/2024 8:09 [...] patients who have questions please contactthe health respiratory care instructor that requested your imaging first. Pamela Johnson DO IMG DX ORDERABLES * Blood culture (06/18/2024 7:00 PM EST) Only the most recent of2 resultswithin the time period is included. Blood Culture No growth at 120 hours 06/23/2024 8:00 PM EST [facility] Blood VENOUS BLOOD SPECIMEN / Unknown Venipuncture / Unknown 06/18/2024 7:00 PM EST 06/18/2024 7:05 PM EST Pamela Johnson DO MICROBIOLOGY - BL OOD ORDERABLES Performing Organization Address City/[facility]/ZIP Co de Phone Number [facility] [place] [address] * POC, GLUCOSE (06/18/2024 6:55 PM EST) Only the most recent of2 resultswithin the time period is included. Glucometer, POC 100 65 - 199 mg/dL 06/18/2024 6:56 PM EST [facility] Comment:Supplemental ranges: <140 mg/dL before meals <180 mg/dL all other times of the day. Blood CAPILLARY BLOOD / Unknown 06/18/2024 6:55 PM EST 06/18/2024 6:56 PM EST Pamela Johnson DO POINT OF CARE TABATHA T ORDERABLES Performing Organization Address City/[facility]/ZIP Co de Phone Number [facility] [place] [address] * EKG 12 Lead (06/18/2024 1:41 PM EST) Only the most recent of3 resultswithin the time period is included. Ventricular rate 47 BPM MUSE SYSTEM Atrial Rate 47 BPM MUSE SYSTEM P-R Interval 186 ms MUSE SYSTEM QRS Duration 114 ms MUSE SYSTEM Q-T Interval 558 ms MUSE SYSTEM QTC Calculated (Bezet) 493 ms MUSE SYSTEM Calculated P Trade 11 degrees MUSE SYSTEM Calculated R Trade 45 degrees MUSE SYSTEM Calculated T Trade 45 degrees MUSE SYSTEM INTERPRETATION Sinus bradycardia [...] Reynolds MD ECG ORDERABLES Performing Organization Address City/[facility]/ZIP Co de Phone Number MUSE SYSTEM * Sodium (06/18/2024 12:22 PM EST) Only the most recent of17 resultswithin the time period is included. Sodium 135 135 - 145 mMol/L 06/18/2024 1:01 PM EST [facility] Blood VENOUS BLOOD SPECIMEN / Unknown Venipuncture / Unknown 06/18/2024 12:22 PM EST 06/18/2024 12:35 PM EST Pamela Johnson DO CHEMISTRY ORDERAB LES [facility] [place] [address] * CT Head wo Contrast (Generic) (06/18/2024 11:18 AM EST) WORKSTATION ID [id number] RAD Anatomical Region Laterality Modality Head Computed [...] who have questions please contact the health respiratory care instructor that requested your imaging first. ? Electronically signed by: Jimbo Casillas MD, [facility] ([phone]), at 06/18/2024 11:37 AM Narrative 06/18/2024 11:37 [...] patients who have questions please contactthe health respiratory care instructor that requested your imaging first. Electronically signed by: Jimbo Casillas MD, [facility]([phone]), at 06/18/2024 11:37 AM Pamela Johnson DO IMG CT ORDERABLES * MRI Brain wwo Contrast (Generic) (2024 4:20 PM EST) WORKSTATION ID [id number] RAD Anatomical Region Laterality Modality Head Magnetic [...] who have questions please contact the health respiratory care instructor that requested your imaging first. ? Electronically signed by: Raudel Heredia MD, [facility] ([phone]), at 2024 4:46 PM Narrative 2024 4:46 [...] clip with its blades near the right ARTERIAL EMBALMER. Procedure Note Raudel Heredia MD - 2024 [...] aneurysm clipwith its blades near the right ARTERIAL EMBALMER. IMPRESSION Homogeneously enhancing 3.5 cm mass along [...] patients who have questions please contactthe health respiratory care instructor that requested your imaging first. Marline Calderon [...] in the AM. Rashard Navarrete MD 06/14/2024 aMrline Calderon APRN NEUROLOGY ORDERABL ES * Request For 2nd Read CT Head (06/14/2024 9:46 AM EST) WORKSTATION ID [id number] RAD Anatomical Region Laterality Modality Head SO [...] who have questions please contact the health respiratory care instructor that requested your imaging first. ? Electronically signed by: Galen Balderas [facility] ([phone]), at 06/14/2024 10:41 AM Narrative 06/14/2024 10:41 AM EST EXAMINATION: REQUEST FOR 2ND READ CT HEAD CLINICAL HISTORY: New seizure with known mass, ?enlargening. Presenting with seizure; Sending Institution [facility]; Date of exam [id number]; I believe a reinterpretation of this exam may alter care of Patient. Yes TECHNIQUE: Reinterpretation of noncontrast CT head performed at [facility] 06/13/2024 at 2143 hours COMPARISON: Noncontrast [...] known mass, ?enlargening. Presentingwith seizure; Sending Institution [facility]; Date of exam [id number]; I believe a [...] patients who have questions please contactthe health respiratory care instructor that requested your imaging first. Electronically signed by: Galen Balderas [facility]([phone]), at 06/14/2024 10:41 AM Lexie Osullivan APRN IMG OUTSIDE INTERP RETATION ORDERABLES * (ABNORMAL) Urinalysis Microscopic (06/14/2024 8:06 AM EST) Bacteria, Urine None None /HPF 12:26 PM EST [facility] Amorphous Crystals, Urine Many(A) None /HPF 06/14/2024 12:26 PM EST [facility] RBC, Urine 1 0 - 3 /HPF 06/14/2024 12:26 PM EST [facility] WBC, Urine 1 0 - 3 /HPF 06/14/2024 12:26 PM EST [facility] Squamous Epithelial Cells, Urine 0 0 - 5 /HPF 06/14/2024 12:26 PM EST [facility] Hyaline Casts, Urine 0 0 - 2 /LPF 06/14/2024 12:26 PM EST [facility] Urine URINE SPECIMEN / Unknown Non Blood Collection / Unknown 06/14/2024 8:06 AM EST 06/14/2024 8:52 AM EST Marline Calderon HEAD BOOKKEEPER URINE ORDERABLES [facility] [place] [address] * Urinalysis Microscopic Exam (06/14/2024 8:06 AM EST) Urine URINE SPECIMEN / Unknown Non Blood Collection / Unknown 06/14/2024 8:06 AM EST 06/14/2024 8:52 AM EST Marline Calderon APRN URINE ORDERABLES [facility] [place] [address] * Electrolytes, urine, random (06/14/2024 8:06 AM EST) Sodium, Urine 76 mMol/L 06/14/2024 10:44 AM EST [facility] Potassium, Urine 41 mMol/L 06/14/2024 10:44 AM EST [facility] Chloride, Urine 52 mMol/L 06/14/2024 10:44 AM EST [facility] Urine URINE SPECIMEN / Unknown Non Blood Collection / Unknown 06/14/2024 8:06 AM EST 06/14/2024 8:52 AM EST Mariola Alfred MD URINE ORDERABLES Performing Organization Address City/[facility]/ZIP Co de Phone Number [facility] [place] [address] * Osmolality, urine, random (06/14/2024 8:06 AM EST) Osmolality, Urine 496 50 - 1,200 mOsm/kg 06/14/2024 10:55 AM EST [facility] Urine URINE SPECIMEN / Unknown Non Blood Collection / Unknown 06/14/2024 8:06 AM EST 06/14/2024 8:52 AM EST Mariola Alfred MD URINE ORDERABLES [facility] [place] [address] * (ABNORMAL) Urinalysis Dipstick (06/14/2024 8:06 AM [...] 12:26 PM [facility] Specific [place] Urine Automated 1.016 1.005 - 1.030 06/14/2024 [...] AM EST Marline Calderon APRN URINE ORDERABLES [facility] [place] [address] * (ABNORMAL) Blood Gas, Venous POC (06/14/2024 1:35 AM [facility]) pH, Venous 7.39 7.32 - 7.42 06/14/2024 [...] - 199 mg/dL 06/14/2024 1:36 AM EST [facility] Comment:Glucose Concentratio n >=200 mg/dL plus symptoms is consistent with Diabetes Mellitus. Lactate, Venous 2.3(H) 0.5 - 2.2 mmol/L 06/14/2024 1:36 AM EST [facility] Ionized Calcium, Venous 1.10(L) 1.15 - 1.33 mmol/L 06/14/2024 1:36 AM EST [facility] Blood VENOUS BLOOD SPECIMEN / Unknown 06/14/2024 1:35 AM EST 06/14/2024 1:36 AM EST Mariola Alfred MD POINT OF CARE TEST O RDERABLES Performing Organization Address City/[facility]/ZIP Co de Phone Number [facility] [place] [address] * Scan, Peripheral Blood (06/14/2024 1:03 AM EST) Pathologist [facility] RBC Morphology Abnormal 06/14/2024 2:00 AM [facility] [...] EST Mariola Alfred MD HEMATOLOGY ORDERABLE S [facility] [place] [address] * Zonisamide level (06/14/2024 1:03 AM EST) Pathologist [facility] Zonisamide Lvl November 17 10 - 40 mcg/mL 06/16/2024 9:22 PM EST [facility] [place] Comment: ADDITIONAL INFORMATION This test was developed and its performance characteristics determined by [facility] in a manner consistent with CLIA requirements. This test has not been cleared or approved by the U.S. Food and Drug Administration. Blood VENOUS BLOOD SPECIMEN / Unknown Venipuncture / Unknown 06/14/2024 1:03 AM EST 06/14/2024 1:08 AM EST Narrative REF [facility] [place] - 06/16/2024 9:22 PM EST Test Performed by: [facility] [place] [address] Motion Study Analyst: Xavier Velásquez Ph.D.; CLIA# [id number] Mariola Alfred MD LAB SEND OUT ORDERAB LES Performing Organization Address City/[facility]/ZIP Co de Phone Number REF LAB [address] * T3 Total (06/14/2024 1:03 AM EST) T3 Total 87 80 - 200 ng/dL 06/14/2024 1:46 AM EST [facility] Blood VENOUS BLOOD SPECIMEN / Unknown Venipuncture / Unknown 06/14/2024 1:03 AM EST 06/14/2024 1:08 AM EST Mariola Alfred MD CHEMISTRY ORDERABLES Performing Organization Address City/[facility]/ZIP Co de Phone Number [facility] [place] [address] * T4, free (06/14/2024 1:03 AM EST) Free T4 1.37 0.93 - 1.70 ng/dL 06/14/2024 1:46 AM EST [facility] Blood VENOUS BLOOD SPECIMEN / Unknown Venipuncture / Unknown 06/14/2024 1:03 AM EST 06/14/2024 1:08 AM EST Mariola Alfred MD CHEMISTRY ORDERABLES [facility] [place] [address] * (ABNORMAL) Osmolality (06/14/2024 1:03 AM EST) Osmolality 259(L) 275 - 295 mOsm/kg 06/14/2024 1:40 AM EST [facility] Blood VENOUS BLOOD SPECIMEN / Unknown Venipuncture / Unknown 06/14/2024 1:03 AM EST 06/14/2024 1:08 AM EST Mariola Alfred MD CHEMISTRY ORDERABLES Performing Organization Address City/[facility]/ZIP Co de Phone Number [facility] [place] [address] * Film Library- Storage Only CT Head (06/13/2024 12:00 AM EST) Narrative [facility] - 06/14/2024 12:43 AM EST This exam is auto-finalizing. It's purpose is for storage only. Ren Vaz MD IMG FILM LIBRARY ORD ERABLES Performing Organization Address City/[facility] Co de Phone Number [place], [place] from Last 3 Months Advance Directives Documents on File Type Date Recorded Patient Display Carver Expl anation Guardianship document 06/22/2024 1:11 PM [...] Name (and relationship if needed): sister Jayme [facility] Teams Library Serials Assistant Relationship Specialty Start Date End Date Jimbo More PA [address] [place] [address] PCP - General Internal Medicine 06/18/24
--- OUTSIDE RECORDS SUMMARY | 2024-08-03 14:00 | XMS_ITS | Encounter Summary ---
Author Organization [facility] Address [address] [place] [address] Care Team Providers Care Benefits Officer Name Role Phone Yan Demarco MD Primary Care Provider [phone] Corin Skinner MD Primary Care Provider Akil Serrano MD Primary Care Provider [phone] Encounter Details Date Type Department Care Team (Late st Contact Info) Description 10/15/2004 Before PRISM Converted Visit (Maple) [facility] - Maple conversion [address] [place] [address] Jose Armando Alejo MD [address] [place] [address] Social History Tobacco Use Types Packs/Day Years [...] Office Visit [facility] Endocrinology - [facility] [address] [place] [address] Wilder Zaidi, [address] [facility] [address] [place] [address] documented as of this encounter Visit Diagnoses Not on filedocumented in this encounter Care Teams Benefits Officer Relationship Specialty Start Date End Date Yan Demarco MD [address] [place] [address] PCP - General 08/22/09 02/20/10 Corin Skinner MD [address] [place] [address] PCP - General 10/24/08 08/21/09 Akil Serrano MD [address] [address] PCP - General 02/21/10 04/16/11 documented as of this encounter
--- OUTSIDE RECORDS SUMMARY | 2024-08-03 14:00 | XMS_ITS | Encounter Summary ---
Author Organization [facility] Address [address] [facility] [place] [address] Care Team Providers Care Manager Latin Name Role Phone Jimbo More Primary Care [...] Jimbo More PA [address] [place] [address] [facility] Dermatology [address] [place] [address] Referral ID Status Reason Start Date Expiration Date Visits Requested Visits Authorized [id number] Authorized Consult, Test & Treat PCP Updated and/or Approved 07/22/2024 07/22/2025 6 6 Encounter Details Date Type Department Care Team (Late st Contact Info) Description 07/28/2024 Transcribe Orders eDH Incoming Referrals [phone] Jimbo More PA [address] [place] [address] Other injury of unspecified body region, initial encounter Social History Tobacco Use Types Packs/Day Years Used Date Smoking Tobacco: Never Smokeless Tobacco: Never Alcohol Use Standard Drinks/Week Comments No 0 (1 standard drink = 0.6 oz pur e alcohol) [facility] Utilities Answer Date Recorded In the [...] any time in the past 12 m [facility], were you homeless or [...] documented in this encounter Care Teams Manager Latin Relationship Specialty Start Date End Date Jimbo More PA [facility] [place] [address] PCP - General Internal Medicine 06/18/24 documented as of this encounter
--- OUTSIDE RECORDS SUMMARY | 2024-08-03 14:00 | XMS_ITS | Encounter Summary ---
Author Organization [facility] Address [facility] [place] [address] Care Team Providers Care Seaman Officer Name Role Phone Jimbo More Primary Care Provider + Encounter Details Date Type Department Care Team (Latest Contact Info) Description 07/20/2024 Travel Social History Tobacco Use Types Packs/Day Years Used Date Smoking Tobacco: Never Smokeless Tobacco: Never Alcohol Use Standard Drinks/Week Comments No 0 (1 standard drink = 0.6 oz pur e alcohol) [facility] Utilities Answer Date Recorded In [...] were you homeless or living in a assisted (including now)? No 2024 IPV Inpatient Questions [...] on filedocumented in this encounter Care Teams Seaman Officer Relationship Specialty Start Date End Date Jimbo [place] [address] PCP - General Internal Medicine 06/18/24 documented as of this encounter
--- OUTSIDE RECORDS SUMMARY | 2024-08-03 14:00 | XMS_ITS | Encounter Summary ---
Author Organization [facility] Address [address] [place] [address] Care Team Providers Care Junior Qa Analyst Name Role Phone Unavailable Primary Care Provider Unavailabl e Encounter Details Date Type Department Care Team (Late st Contact Info) Description 09/17/2004 11:07 EST - 09/17/2004 11:59 EST Hospital Encounter [facility] - Maple conversion [address] [place] [address] Jamie Mckenna MD [address] [facility] [address] [place] [id number] Discharge Disposition: Home or Self Care Social [...] Visit [facility] Endocrinology - [facility] [address] [place] [address] Wilder Zaidi DO [address] [facility] [address] [place] [phone] documented as of this encounter Procedures Procedure [...]
--- OUTSIDE RECORDS SUMMARY | 2024-08-03 14:00 | XMS_ITS | Encounter Summary ---
Author Organization [facility] Address [address] [place] [address] Care Team Providers Care Biological Aide Name Role Phone Yan Demarco MD Primary Care Provider Corin Skinner MD Primary Care Provider Akil Serrano MD Primary Care Provider [phone] Encounter Details Date Type Department Care Team (Late st Contact Info) Description 10/15/2004 Before PRISM Converted Visit (Maple) [facility] - Maple conversion [address] [place] [address] Hilton Malloy MD [address] [place] [phone] Social History Tobacco Use Types Packs/Day Years Used Date Smoking Tobacco: Never Assessed Sex and Gender Information Value Date Recorded Sex Assigned at Not on file Legal Sex Male 18:35 EST Gender Identity Not on file Sexual Orientation Not on file documented as of this encounter Procedure Notes * Ricki, Conv Merchandise Flow Manager - 02/13/2011 1256 EDT DATE: 10/12/2004 SURGEON: HILTON MALLOY MD ELECTRICIAN'S ASSISTANT: REYNA OLEA MD, ANCELMO FRIEDMAN MD, HOMAR [...] he finished, we placedthe patient in the Plover three-point head of drama fixation and then registered him with the [...] suture. Then thedura is stripped with a [place]atham #3 and an air drill is used [...] used. The arachnoid is opened with a Goldvein blade and the sylvian fissure is split. [...] skin. The patient is removed from the Plover headholder. The pupils appear 3 mm and [...] 10/15/2004 10:37:52 - chelle Voice ID - [id number] Document ID - [id number] cc: HOMAR DIAZ MD, REFERRING PHYSICIAN HILTON MALLOY MD, ATTENDING PHYSICIAN This document has been electronically signed by HILTON MALLOY MD on 10/16/2004 16:06:32. documented in this encounter Plan of Treatment Upcoming Encounters Date Type Department Care Team (Late st Contact Info) Description 10/01/2024 13:40 EDT Office Visit [facility] Endocrinology - [address] [address] Shonjalyn Wilder Erik, DO [address] [facility] [address] [place] [address] documented as of this encounter Visit Diagnoses Not on filedocumented in this encounter Care Teams Biological Aide Relationship Specialty Start Date End Date Yan Demarco MD [address] [place] [address] PCP - General 08/22/09 02/20/10 Corin Skinner MD [address] [place] [phone] PCP - General 10/24/08 08/21/09 Akil Serrano MD [address] [facility] [address] [place] [address] PCP - General 02/21/10 04/16/11 documented as of this encounter
--- OUTSIDE RECORDS SUMMARY | 2024-08-03 14:00 | XMS_ITS | Encounter Summary ---
Author Organization [facility] Address [address] [place] [address] Care Team Providers Care Dry Starch Operator Name Role Phone Yan Demarco MD Primary Care Provider [phone] Corin Skinner MD Primary Care Provider Akil Serrano MD Primary Care Provider [phone] Encounter Details Date Type Department Care Team (Late st Contact Info) Description 10/08/2004 Before PRISM Converted Visit (Maple) [facility] - Maple conversion [address] [place] [address] Jose Armando Alejo MD [address] [place] [address] Social History Tobacco Use Types Packs/Day Years [...] JOSE ARMANDO ALEJO MD, ADE MALLOY MD MAGAZINE JOURNALIST: CONSTANTINO BERMUDEZ MD PREOPERATIVE DIAGNOSIS: Craniopharyngioma cyst. [...] 10/08/2004 14:14:21 - cs Voice ID - [id number] Document ID - [id number] cc: ADE DIAZ MD, REFERRING PHYSICIAN JOSE ARMANDO ALEJO MD, ATTENDING PHYSICIAN This document has been electronically signed by JOSE ARMANDO ALEJO MD on 10/11/2004 15:42:12. documented in this encounter Plan of Treatment Upcoming Encounters Date Type Department Care Team (Late st Contact Info) Description 10/01/2024 13:40 EDT Office Visit [facility] Endocrinology - [facility] [address] [place] [address] Wilder Zaidi, 62 [facility] [address] [place] [address] documented as of this encounter Visit Diagnoses Not on filedocumented in this encounter Care Teams Dry Starch Operator Relationship Specialty Start Date End Date Yan Demarco MD [address] [place] [address] PCP - General 08/22/09 02/20/10 Corin Skinner MD [address] [phone] PCP - General 10/24/08 08/21/09 Akil Serrano MD 74 [facility],[address] [address] PCP - General 02/21/10 04/16/11 documented as of this encounter
--- OUTSIDE RECORDS SUMMARY | 2024-08-03 14:00 | XMS_ITS | Encounter Summary ---
Author Organization [facility] Address [address] [place] [address] Care Team Providers Care Helicopter Dispatcher Name Role Phone Yan Demarco MD Primary Care Provider Corin Skinner MD Primary Care Provider Akil Serrano MD Primary Care Provider [phone] Encounter Details Date Type Department Care Team (Late st Contact Info) Description 11/13/2004 Before PRISM Converted Visit (Maple) [facility] - Maple conversion [address] [place] [address] Kylie Larson MD [address] [place] [phone] Social History Tobacco Use Types Packs/Day Years [...] scratch his face spontaneously. 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 He [...] response when trying to open his mouth. cloud services architect and social work continued to work on [...] 11/13/2004 17:06:53 - chelle Voice ID - [id number] Document ID - [id number] cc: KYLIE DIAZ MD, REFERRING PHYSICIAN This document has been electronically signed by KYLIE LARSON MD on 11/14/2004 13:52:29. [email or web address] documented in this encounter Plan of Treatment Upcoming Encounters Date Type Department Care Team (Late st Contact Info) Description 10/01/2024 13:40 EDT Office Visit [facility] Endocrinology - [facility] [address] [place] [address] Wilder Zaidi, DO 62 [facility] [address] [place] [address] documented as of this encounter Visit Diagnoses Not on filedocumented in this encounter Care Teams Helicopter Dispatcher Relationship Specialty Start Date End Date Yan Demarco MD [address] [place] [address] PCP - General 08/22/09 02/20/10 Corin Skinner MD [address] [address] PCP - General 10/24/08 08/21/09 Akil Serraon MD 74 [facility] [address] [place] [address] PCP - General 02/21/10 04/16/11 documented as of this encounter
--- OUTSIDE RECORDS SUMMARY | 2024-08-03 14:01 | XMS_ITS | Encounter Summary ---
Author Organization [facility] [place] [address] Care Team Providers Care Table Machine Operator Name Role Phone Jimbo More Primary Care Provider + Reason for Visit * Auth/Cert (Routine) Specialty Diagnoses / Procedures Referred By Duyen bui Referred To Contact Diagnoses Hyponatremia hyponatremia Procedures ER IPI Mariola Alfred MD [facility] [place] [address] [facility] Referral ID Status Reason Start Date Expiration Date Visits Re quested Visits Authorized [id number] 1 1 Encounter Details Date Type Department Care Team (Late st Contact Info) Description 06/14/2024 12:57 AM EST - 06/21/2024 3:06 PM EST Hospital Encounter Neuro Special Care Unit Level 3 [place] [address] Mariola Alfred MD [facility] [place] [address] Christopher [place] [address] [place] [address] [place] [address] [place] [address] Sleep disorder; Hyponatremia; Agitation Discharge Disposition: Longterm Facility Social History Tobacco Use Types Packs/Day Years Used Date Smoking Tobacco: Never Smokeless Tobacco: Never Alcohol Use Standard Drinks/Week Comments No 0 (1 standard drink = 0.6 oz pur e alcohol) [facility] Utilities Answer Date Recorded In the [...] any time in the past 12 [facility], were you homeless or living in [...] has been significant for: Hyponatremia: Presented to [facility] following witnessed tonic-clonic seizure at residential, found to have sodium of 122. On [...] in September 2023. On second read of [facility] scan described as hypoattenuating, likely cystic [...] witnessed at fdc, 30 sec seziure at [facility] ED (2mg ativangiven). None since arrival [...] 97 % No results for input(s): PHART, IJR9SFK, PO2ART, TGV4EAQ in the last 168 hours. I/O: Date 06/21/24 0700 - 06/22/24 0659 Shift 8533-1373 2150-3781 [id number] 24 Hour Total INTAKE P.O. 354 354 [...] Procedure Component Value Units Date/Time Blood culture [[id number]] (Abnormal) Collected: 06/18/241899 Lab Status: Preliminary result [...] a previously preliminary verified report. Blood culture [[id number]] Collected: 06/18/241899 Lab Status: Preliminary result Specimen: [...] [facility] [id number] [facility] * Attachments The following attachments cannot be sent through Care Everywhere. * Hyponatremia (Zambian) documented in this encounter Medications at Time [...] spent >30 minutes (Day of Discharge Code 66398) involved in the final examination of the [...] appropriate/able. Sunitha Sanderson PT, DPT, NCS Pager: [phone] Physical Therapy Inpatient Rehabilitation Department * Martinez [...] 168 hours. No results for input(s): PHART, SYH3GCZ, PO2ART, KEU1TJJ in the last 168 hours. Microbiology: None [...] - Dispo: Back to fdc when Martinez Reynolds MD Hospital medicine Service: [...] 168 hours. No results for input(s): PHART, GFS5JRL, PO2ART, GEK6VAH in the last 168 hours. Microbiology: None [...] - Dispo: Back to fdc when Martinez Reynolds MD [facility] medicine Service: [phone] 06/19/2024 * Shola Morris MD - 06/19/2024 10:15 AM EST Images from the original note were not included. Endocrinology Follow up Note Name: Abram Burgos Date: 06/19/24 Room: [address] [place] [address] Reason for Consult: panhypopituitarism HPI Abram Burgos [...] this is possible given there is often direct care specialist turnover and not everyone is up to [...] - will need follow up with his Remedial Masseur, Dr. Zaidi or Dr. Day Littlejohn at [...] take POat this time Shola Morris MD Vp Emerging Mediamanager lean Endocrinology Section [facility] * Doris Judd MD - 06/19/2024 6:58 [...] glean yes and no Language: fluent in danish and with word finding difficulty Mood: awesome [...] seems that this struggle is also a short haul driver of agitation, and one of the [...] - start 600mg BID, titrate to MDD 4466-2910 in divided doses - monitor for increased respiratory secretions -discontinue depakote Patient on IEA Status? IEA: NO, patient is not an on IEA. Awaiting voluntary psychiatric placement but safety concerns exist if patient decides to leave and will require urgent psychiatric assessmentprior to discharge or leaving AMA. Recommendations were communicated to primary warehouse team leader Dr. Johnson. H Samson Judd MD 06/19/2024 [...] Minimal/Low [] Low [] Minimal/Low [] Low 85491 [] Moderate [] Moderate [] Moderate [] Moderate 99539 [] High [] High [] High [] High 35444 Final Coding Determination: Moderate * Pamela Johnson [...] 168 hours. No results for input(s): PHART, WFK5VSM, PO2ART, TIU7IRD in the last 168 hours. Microbiology: None [...] to fdc when Pamela Emerald DO Alex [facility] medicine Service: [phone] 06/18/2024 * Jaja Chin MD - 06/18/2024 [...] to fdc when [facility] [address] [facility] [address] [place] [address] '[address]81 Spoke with Jennifer Woods RN. Updated not anticipated discharge until next week. Will submit referralto RS to update facility with clinicals. [facility] provides transport. * Sunitha Sanderson PT - 06/18/2024 10:49 AM EST Physical Therapy Contact Note 06/18/24 5566 Evaluation & Treatment Document Type contact Total Minutes, Physical Therapy 0 Comment, Session Not Performed Checked in with nursing, pt awaiting stat HCT for somnolence. PT will defer and follow up as appropriate/able. Sunitha Sanderson PT, DPT, NCS Pager: [phone] Physical Therapy Inpatient Rehabilitation Department * Zoë [...] denies needing anything at this time. His DATA TRANSCRIBER at bedside shares that he has been [...] glean yes and no Language: fluent in danish and with word finding difficulty Mood: no [...] seems that this struggle is also a short haul driver of agitation, and one of the [...] leaving AMA. Recommendations were communicated to primary warehouse team leader Dr. Johnson. Jaja Chin MD 06/18/2024 Coding [...] Minimal/Low [] Low [] Minimal/Low [] Low 26474 [] Moderate [] Moderate [] Moderate [] Moderate 66086 [] High [] High [] High [] High 80036 Final Coding Determination: Moderate Associated attestation - [...] Brittny Hanna MD Department of Psychiatry Pager #[phone] * Pamela Johnson, - 06/17/2024 5:30 PM [...] 168 hours. No results for input(s): PHART, XPH4WQS, PO2ART, JLI5AWT in the last 168 hours. Microbiology: None [...] 3L daily. [facility]. She notes his [...] Back to fdc when MR Pamela Corbin Ana MaríadanielaDO [facility] medicine Service: [phone] 06/17/2024 * Roya [...] Surgical History: Procedure Laterality Date PRO OPEN WOMEN'S SOCCER COACH FIX ACETABULAR FX Left 09/04/2017 @OPEN TREATMENT, ACETABULAR FX (WRVU 25.41) performed by Amy Lance MD at [facility] MAIN OR Social History: Patient lives in [...] from EOB: min assist x 2 with WELDER APPRENTICE ARC Pt able to side step to L side ~4-5 steps with min assist x 2 using WELDER APPRENTICE ARC, cues provided for step initiation and sequencing Stand to sit x 2: min assist x 2 with WELDER APPRENTICE ARC Sit to supine: mod assist x 2 [...] minimal side steps to L side with WELDER APPRENTICE ARC. Unsure of pt's most recent functional status [...] Minutes, Occupational Therapy: 28 (09:42-10:10 SCx2) Pager: [phone] Roya Kingsley OTR/L Occupational Therapy Rehabilitation Department [...] EEG CONTINUOUS MONITORING INPATIENT 2024 PRO OPEN WOMEN'S SOCCER COACH FIX ACETABULAR FX Left 09/04/2017 @OPEN TREATMENT, ACETABULAR FX (WRVU 25.41) performed by Amy Lanec MD at [facility] MAIN OR Social History: Home setup: Pt resides in an accessible fdc in [facility] Baseline Mobility/Prior level of function: Had [...] outlined inthis evaluation. Time IN / OUT: 0328-3461 Total Minutes, Physical Therapy: 30 (eval). Ludivina Stover, PT DPT 06/16/2024 Pager: [phone] Physical Therapy Inpatient Rehabilitation Department * Christopher [...] seizures in the setting of hyponatremia and WELFARE CENTRE MANAGER structural abnormalities. This most likely provoked by [...] two midnights or is on the [facility] inpatient only procedure list (status C) due [...] per primary, but remain available at pager [phone] should further questions/concerns arise. Plan: -No acute neurosurgical intervention warranted -We are signing off now, but will follow up outpatient with patient/family to discuss management options -Rest of care per primary including frequency of neuro checks For questions please call NSGY pager [phone] Lauren Ruby MD 06/16/2024 7:22 AM Clinical [...] with him tomorrow. Maxine Silverio, DAVONTE Pager [phone] * Christopher Stanley MD - 2024 8:13 [...] seizures in the setting of hyponatremia and WELFARE CENTRE MANAGER structural abnormalities. This most likely provoked by [...] O2 Device RA Maxine Silverio, PT Pager [phone] * Wilder Davis - 06/14/2024 11:19 AM [...] doses of DDAVP and other medications for dtuta hypopituitarism. His guardian is uncertain whether he has had indiscretion with his fluid restriction of late. His seizure medications have not been adjusted based on our knowledge. Was at fdc when he had ~2 minute tonic clonic seizure. Presented to [facility] where he was found to be [...] seizures in the setting of hyponatremia and WELFARE CENTRE MANAGER structural abnormalities. His hyponatremia is likely mixed: [...] two midnights or is on the [facility] inpatient only procedure list (status C) due to: monitoring of fluid status given an inability to regulate fluid balance and the need for administration or restriction of fluids and seizur * Kvng Marline L, MILKING MACHINE OPERATOR - 06/14/2024 6:42 AM EST Critical Care [...] fdc with subsequent 30 second seizure at [facility] ED which was treated with 2mg ativan. He was found to be hypon atremic to 121 (from apparent baseline in 140s). At [facility] he received 150cc 3% NaCl and [...] Line): -- No results for input(s): PHART, NNL5CQB, PO2ART, LXZ2EDV in the last 168 hours. Intake/Output Summary [...] Lizeth Calderon APRN June 14, 2024 Pager #[phone] Critical Care Green Team documented in this [...] with seizures. The patient was transferred from [facility] from a fdc ([facility]) for a seizure. He had been in his usual state of health, though notably he did have COVID within the past month. He reported that he had not been missing any of his medications, however due to some recent behavioral troubles and problems with sleeping, some of his medications have been altered recently. Hospital course notable for: Hyponatremia: Presented to [facility] following witnessed tonic-clonic seizure at residential, found to have sodium of 122. On [...] in September 2023. On second read of [facility] scan described as hypoattenuating, likely cystic [...] witnessed at fdc, 30 sec seziure at [facility] ED (2mg ativangiven). None since arrival [...] EEG CONTINUOUS MONITORING INPATIENT 2024 PRO OPEN WOMEN'S SOCCER COACH FIX ACETABULAR FX Left 09/04/2017 @OPEN TREATMENT, ACETABULAR FX (WRVU 25.41) performed by Amy Lance MD at [facility] MAIN OR Social History: Social History Socioeconomic [...] file Social History Narrative Lives at the [facility], moved in 11/07/2014. Social Determinants of Health [...] 06/14/2024 4:02 AM) Result Value WORKSTATION ID [id number] Narrative EXAMINATION: XR CHEST ONE VIEW CLINICAL [...] who have questions please contact the health director of career services that requested your imaging first. Electronically signed by: Beverley Valencia MD, [facility] ([phone]), at 06/14/2024 4:32 AM Request For 2nd Read CT Head (Exam End: 06/14/2024 9:46 AM) Result Value WORKSTATION ID [id number] Narrative EXAMINATION: REQUEST FOR 2ND READ CT HEAD CLINICAL HISTORY: New seizure with known mass, ?enlargening. Presenting with seizure; Sending Institution [facility]; Date of exam [id number]; I believe a reinterpretation of this exam may alter care of Patient. Yes TECHNIQUE: Reinterpretation of noncontrast CT head performed at [facility] 06/13/2024 at 2143 hours COMPARISON: Noncontrast [...] who have questions please contact the health director of career services that requested your imaging first. Electronically signed by: Galen Balderas [facility] ([phone]), at 06/14/2024 10:41 AM MRI Brain wwo Contrast (Generic) (Exam End: 2024 4:20 PM) Result Value WORKSTATION ID [id number] Narrative EXAMINATION: MRI BRAIN WWO CONTRAST (GENERIC) [...] clip with its blades near the right RIG BUILDER HELPER. Impression Homogeneously enhancing 3.5 cm mass along [...] who have questions please contact the health director of career services that requested your imaging first. Electronically signed by: Raudel Heredia MD, [facility] ([phone]), at 2024 4:46 PM ASSESSMENT and PLAN: [...] Tim Yuen MD Internal Medicine PGY-2 Pager: [phone] 06/16/24 Associated attestation - Channing Ballesteros MD [...] with seizures. HPI: Per report presented to [facility] from a fdc ([facility]) for seizure. He has been in [...] encephalomalacia Interventions that the pt received at [facility] included 150cc 3% NaCl, 100mg of [...] Surgical History: Procedure Laterality Date PRO OPEN WOMEN'S SOCCER COACH FIX ACETABULAR FX Left 09/04/2017 @OPEN TREATMENT, ACETABULAR FX (WRVU 25.41) performed by Amy Lance MD at [facility] OR No family history on file. [...] 127 from the time of arrival to [facility] Should attempt 6mMol/L increase in Na [...] NAKIA Blair June 14, 2024 Critical Care [place] Team (pager [phone]) Dr. Alfred is the attending of record for this admission documented in this encounter Procedure Notes * Joey Moura MD - 06/18/2024 1:58 PM EST [facility] Department of Neurology Inpatient Routine EEG Report [...] channel digitized electroencephalogram was performed in the [facility] Clinical Neurophysiology Laboratory. The 10/20 international system of electrode placement was used and bipolar and referential electrode montages were recorded. In addition to EEG the patient was monitored for EKGand lateral/vertical eye movements. Video was recorded during the session. DERMATOLOGY TECHNICIAN'S REPORT: Performed by: Ingrid Shi Patient was [...] agree with the report. Rosa Quezada MD [facility] Neurology * Camron Gee MD - 2024 5:19 PM ESTProcedure(s): EEG CONTINUOUS MONITORING INPATIENT [facility] Department of Neurology Inpatient Continuous Video EEG Tail Report Name of the Patient: Abram Burgos Date of : 1990 [facility] Date of Service: 2024 Referring physician: [...] EKG. Video was recorded during the session. DERMATOLOGY TECHNICIAN'S REPORT: Performed by: At the onset of [...] seen during this epoch. Rashard Navarrete MD PATIENT REGISTRATION SPECIALIST Fellow, PGY-5 2024 EPILEPSY ATTENDING ADDENDUM - I reviewed the EEG with the PATIENT REGISTRATION SPECIALIST/Epilepsy fellow, and I agree with the interpretation as documented. Camron Gee MD, PhD Professor of Neurology [facility] Clinical Neurophysiology Laboratory [facility] Rashard Castrejon MD - 06/14/2024 3:33 PM [...] Castrejon MD - 06/14/2024 3:03 PM EST [facility] Department of Neurology Inpatient Continuous Video EEG Report Name of the Patient: Abram Burgos Date of : 1990 [facility] Date of Service: 06/14/2024 Referring physician: Marline [...] EKG. Video was recorded during the session. DERMATOLOGY TECHNICIAN'S REPORT: Performed by: At the onset of [...] seen during this epoch. Rashard Navarrete MD PATIENT REGISTRATION SPECIALIST Fellow, PGY-5 06/14/2024 Associated attestation - Camron Gee MD - 2024 1:03 PM EST EPILEPSY ATTENDING ADDENDUM - I reviewed the EEG with the PATIENT REGISTRATION SPECIALIST/Epilepsy fellow, and I agree with the interpretation as documented. Given the lack of evidence for underlying epileptic seizures from this recording of ~24 hours, we'd recommend considering discontinuing the CEEG study. We are available to discuss this matter with the Neurology consultation and inpatient bravo team. Camron Gee MD, PhD Professor of Neurology [facility] Epilepsy [place] Clinical Neurophysiology Laboratory [facility] documented in this encounter Miscellaneous Notes * [...] Patient is medically ready for discharge to [address] [place] [address] '[address] . Event Sales Manager: Kemi Noriega at [facility] will be picking him up. I also spoke with Bettina Burgoshis Guardian to give her updates. Needs for Transition of Care: Plan for discharge is: Longterm Facility / Swing Outpatient Agency/Support Group Needs: residential Agency Referrals & Follow-up Care: Transportation: Event Sales Manager: Kemi Hari at [facility] will be picking him up. I also [...] plan was formulated with input from patient, Event Sales Manager: Kemi Noriega at [facility] will be picking him up. I also spoke with Bettina Burgos his Guardian to give her updates and team Dr. Reynolds. All are in agreement with plan. Sudarshan Marie SECONDARY EDUCATION PROFESSOR [facility] * Plan of Care - Erik [...] past. Patient has previously been seen at [facility] in 2014. His deficits at that time included left hemiparesis, cortical blindness, urine incontinence, dysarthria and gait disorder. 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 According to [facility] documentation, he had a spell at his fdc that was concerning for seizure one month prior to his visit. BG at the time was in the 40s and he was started on Keppra in addition to Zonegran. 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 Thank you for letting us participate in the care of this patient. If you are a health care provider and have any questions regarding this report, please contact the number below. For patients who have questions please contact the health director of career services that requested your imaging first. Electronically signed by: Beverley Valencia MD, [facility] ([phone]), at 06/14/2024 4:32 AM Request For 2nd Read CT Head (Exam End: 06/14/2024 9:46 AM) Result Value WORKSTATION ID [id number] Impression Hypoattenuating, likely cystic mass appears to [...] who have questions please contact the health director of career services that requested your imaging first. Electronically signed by: Galen Balderas [facility] ([phone]), at 06/14/2024 10:41 AM MRI Brain wwo Contrast (Generic) (Exam End: 2024 4:20 PM) Result Value WORKSTATION ID [id number] Impression Homogeneously enhancing 3.5 cm mass along [...] who have questions please contact the health director of career services that requested your imaging first. Electronically signed by: Raudel Heredia MD, [facility] ([phone]), at 2024 4:46 PM Assessment: Abram Burgos [...] focal atrophy Arm flexion 5/5 b/l Hand oil well cable tool driller 5/5 b/l Able to wiggle toes Reflexes: [...] Neurology to sign off Americo Flores, MS4 [facility] * Care Management - Raudel Tate [...] Guardian Name: Bettina Burgos-sister Guardian Contact Information: [phone] Financial Decision Maker: Guardian Guardianship paperwork on [...] to be determined Plan for discharge is: Longterm Facility / Swing Transition Plan for After Rehab: [facility] Outpatient Agency/Support Group Needs: residential Agency Choices: [facility] Agency Referrals: Current referrals placed to: N/A Transportation: Barriers to discharge: Global: Discharge planning Global Comment: Coordination of returning to fdc Items to Consider for Discharge: Pt's sister and guardian Bettina Burgos has given permission for the following people [facility] to receive updates: Lives in [facility]) -Kemi Noriega -residential patient case manager -Ladonna Woods -residential RN CM Interventions today: CM is notified [...] hx patient anticipated to go return to [facility] ([facility]) with possible VNA services on top what is already offered. The patient's sister and guardian Bettina Sweettomy as assisting with dispo coordination. CM will continue to monitor progress, follow for continuity of care, and assist with discharge planning while patient is inpatient status on current unit. Investigate address and contact information for Critical access hospital ([facility]) and place referral so they have updated information to review to assist in dispo Review team recommendations and place referrals for VNA if medical status changes after treatments/interventions. Monitor and update referrals Anticipated Date of Discharge: 06/18/2024 Raudel Tate RN Case Liability Claims Representative of Care Management * Consult Note - [...] past. Patient has previously been seen at [facility] in 2014. His deficits at that time included left hemiparesis, cortical blindness, urine incontinence, dysarthria and gait disorder. 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 According to [facility] documentation, he had a spell at his fdc that was concerning for seizure one month prior to his visit. BG at the time was in the 40s and he was started on Keppra in addition to Zonegran. [facility] neurologist planned for discontinuation of Keppra [...] tablet 2 tablet 2 tablet Oral BID iTm Yuen MD 2 tablet at 06/16/242010 polyethylene [...] EEG CONTINUOUS MONITORING INPATIENT 2024 PRO OPEN WOMEN'S SOCCER COACH FIX ACETABULAR FX Left 09/04/2017 @OPEN TREATMENT, ACETABULAR FX (WRVU 25.41) performed by Amy Lnace MD at [facility] OR Allergies: Allergies Allergen Reactions Lopid [...] 06/14/2024 4:02 AM) Result Value WORKSTATION ID [id number] Impression Low lung volumes with crowding of bronchovascular markings without radiographically evident acute cardiopulmonary process. Thank you for letting us participate in the care of this patient. If you are a health care provider and have any questions regarding this report, please contact the number below. For patients who have questions please contact the health director of career services that requested your imaging first. Electronically signed by: Beverley Valencia MD, [facility] ([phone]), at 06/14/2024 4:32 AM Request For 2nd Read CT Head (Exam End: 06/14/2024 9:46 AM) Result Value WORKSTATION ID [id number] Impression Hypoattenuating, likely cystic mass appears to [...] who have questions please contact the health director of career services that requested your imaging first. Electronically signed by: Galen Balderas [facility] ([phone]), at 06/14/2024 10:41 AM MRI Brain wwo Contrast (Generic) (Exam End: 2024 4:20 PM) Result Value WORKSTATION ID [id number] Impression Homogeneously enhancing 3.5 cm mass along [...] who have questions please contact the health director of career services that requested your imaging first. Electronically signed by: Raudel Heredia MD, 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 Americo Flores, MS4 [facility] * Consult Note - Kellen Braxton [...] past. Patient has previously been seen at [facility] in 2014. His deficits at that time included left hemiparesis, cortical blindness, urine incontinence, dysarthria and gait disorder. 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 According to [facility] documentation, he had a spell at his fdc that was concerning for seizure one month prior to his visit. BG at the time was in the 40s and he was started on Keppra in addition to Zonegran. [facility] neurologist planned for discontinuation of Keppra [...] EEG CONTINUOUS MONITORING INPATIENT 2024 PRO OPEN WOMEN'S SOCCER COACH FIX ACETABULAR FX Left 09/04/2017 @OPEN TREATMENT, ACETABULAR FX (WRVU 25.41) performed by Amy Lance MD at [facility] Allergies: Allergies Allergen Reactions Lopid [...] 06/14/2024 4:02 AM) Result Value WORKSTATION ID [id number] Impression Low lung volumes with crowding of bronchovascular markings without radiographically evident acute cardiopulmonary process. Thank you for letting us participate in the care of this patient. If you are a health care provider and have any questions regarding this report, please contact the number below. For patients who have questions please contact the health director of career services that requested your imaging first. Electronically signed by: Beverley Valencia MD, [facility] ([phone]), at 06/14/2024 4:32 AM Request For 2nd Read CT Head (Exam End: 06/14/2024 9:46 AM) Result Value WORKSTATION ID [id number] Impression Hypoattenuating, likely cystic mass appears to [...] who have questions please contact the health director of career services that requested your imaging first. Electronically signed by: Galen Balderas [facility] ([phone]), at 06/14/2024 10:41 AM MRI Brain wwo Contrast (Generic) (Exam End: 2024 4:20 PM) Result Value WORKSTATION ID [id number] Impression Homogeneously enhancing 3.5 cm mass along [...] who have questions please contact the health director of career services that requested your imaging first. Electronically signed by: Raudel Heredia MD, [facility] ([phone]), at 2024 4:46 PM Assessment: Abram Burgos [...] altered mental status prior to presentation is assisted sales representative of ongoing seizures at home. [...] continue to follow. Patient seen with Dr. rBaxton. Alina Holland MD Neurology, PGY-3 Consult Neurology Service #[id number] 06/16/2024 ATTENDING NOTE: I reviewed the pertinent [...] record, and Guardian (Spoke with Bettina-Chloe) This MANAGER ECONOMIC Introduced self/reviewed role; services accepted. Admitted From: Transfer from another hospital Location: Reason for Hospitalization: Per sister, patient had seizure activity for the first time in 9 years.EMS called. Past medical History: No past medical history on file. Hospitalizations Within the Past 30 Days: no previous admission in last 30 days Current Decision-Making Capacity: Guardian Name(s): Bettina Burgos Contact Information: [phone] (cell) Proxy Activated: Yes Paperwork on file?: [...] at times) Home Address confirmed as: [place] [facility] 1976 Attn: Mercedez Otero [facility] [address] Social & Family Supports: All names listed below confirmed with patient as current and correct Extended Emergency Contact Information Primary Emergency Contact: Bettina Burgos Address: [address] [place] [id number] [place] [address] Relation: Guardianship Secondary Emergency Contact: Lc Merlos [facility] Relation: Other Current Care Provided by: [facility] Provides Primary Care For: no one, unable/limited ability to care for self Caregiver if needed: other (see comments) (residential) Quality of Family relationships: supportive, involved Community [...] N/A ; Prescription Coverage: Yes Preferred Pharmacy: [facility] Home Delivery - [facility] [address] [facility] [address] [facility] [address] [facility] [address] [facility] [address] [facility] [address] [facility] [address] [address] [place] Status: Patient is a : No Primary Care Provider confirmed: Ren Vaz MD [phone] Patient/Caregiver Goals of Treatment: Anticipating return to fdc when medically ready Potential Needs for Transition of Care: none Agency Referrals: [facility] [employer] Transportation: no concerns Transportation Anticipated: agency Concerns to be Addressed: other (see comments) (Needing transportation via [facility] at discharge) Assessment: Patient is admitted to service for Hyponatremia Pt is a 34 year dependent male, living in a fdc. Pt guardian is his sister, Bettina. Bettina is very involved and supportive. Guardianship paperwork is on file. Pt is cared for by his group homestaff while his finances remain in the care of his guardian. Reached out to [facility] to confirm [facility] plans. The fdc will reach out with any information regarding this. Plan going forward: Pending hospital course Care Management team will continue to follow and assist with discharge planing and coordination of care as indicated. JAMSHID Ramirez Medicine Pager [phone] * Consult Note - Braxton, Kellen H, [...] past. Patient has previously been seen at [facility] in 2014. His deficits at that time included left hemiparesis, cortical blindness, urine incontinence, dysarthria and gait disorder. 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 According to [facility] documentation, he had a spell at his fdc that was concerning for seizure one month prior to his visit. BG at the time was in the 40s and he was started on Keppra in addition to Zonegran. [facility] neurologist planned for discontinuation of Keppra [...] Surgical History: Procedure Laterality Date PRO OPEN WOMEN'S SOCCER COACH FIX ACETABULAR FX Left 09/04/2017 @OPEN TREATMENT, ACETABULAR FX (WRVU 25.41) performed by Amy Lance MD at [facility] Allergies: Allergies Allergen Reactions Lopid [...] 06/14/2024 4:02 AM) Result Value WORKSTATION ID [id number] Impression Low lung volumes with crowding of bronchovascular markings without radiographically evident acute cardiopulmonary process. Thank you for letting us participate in the care of this patient. If you are a health care provider and have any questions regarding this report, please contact the number below. For patients who have questions please contact the health director of career services that requested your imaging first. Electronically signed by: Beverley Valencia MD, [facility] ([phone]), at 06/14/2024 4:32 AM Request For 2nd Read CT Head (Exam End: 06/14/2024 9:46 AM) Result Value WORKSTATION ID [id number] Impression Hypoattenuating, likely cystic mass appears to [...] who have questions please contact the health director of career services that requested your imaging first. Electronically signed by: Galen Balderas [facility] ([phone]), at 06/14/2024 10:41 AM Assessment: Abram Burgos [...] with generalized stiffening. He was brought to [facility], where he was found to have [...] underwent tumor resection with Dr. Álvarez at [facility]. This was complicated by arterial bleeding [...] Surgical History: Procedure Laterality Date PRO OPEN WOMEN'S SOCCER COACH FIX ACETABULAR FX Left 09/04/2017 @OPEN TREATMENT, ACETABULAR FX (WRVU 25.41) performed by Amy Lance MD at [facility] MEDICATIONS: No current facility-administered medications [...] file Social History Narrative Lives [place] [facility], moved in 11/07/2014. Social Determinants of Health [...] neurosurgery attending. No future appointments. Neurosurgery Pager: [phone] Gonzalez Kirkpatrick MD Neurosurgery PGY-1 06/14/2024 6:44 [...] Surgical History: Procedure Laterality Date PRO OPEN WOMEN'S SOCCER COACH FIX ACETABULAR FX Left 09/04/2017 @OPEN TREATMENT, ACETABULAR FX (WRVU 25.41) performed by Amy Lance MD at [facility] Social History: Patient lives in [...] Sit to stand: CGA x2 handhold Ambulation: [facility] x2 handhold for [id number] transfer EOB<>commode Stand to sit: CGA Sit [...] Discharge planning. Total Minutes, Occupational Therapy: 16 ([id number] (evaluation)) 2017 OT Evaluation Code Rationale: Diagnosis [...] and measurable assessment of functional outcome. Pager: [phone] Dinorah Navas OTR/L 06/14/2024 Occupational Therapy Rehabilitation [...] follows with Dr. Zaidi of Endocrinology at [facility]. Recently saw a covering provider, Day Littlejohn in March 2024. He currently resides in a fdc, [facility] where nurses and medical assistants provide care, [...] Surgical History: Procedure Laterality Date PRO OPEN WOMEN'S SOCCER COACH FIX ACETABULAR FX Left 09/04/2017 @OPEN TREATMENT, ACETABULAR FX (WRVU 25.41) performed by Amy Lance MD at [facility] No family history on file. [...] file Social History Narrative Lives at the [facility] [place], moved in 11/07/2014. Social Determinants of Health [...] this is possible given there is often direct care specialist turnover and not everyone is up to [...] [facility] Endocrinology Pager #[phone] I have seen the patient and reviewed [...] is effective and safe Shola Morris MD Vp Emerging Mediamanager lean Endocrinology Section [facility] * Consult Note - Kellen Braxton MD [...] past. Patient has previously been seen at [facility] in 2014. His deficits at that time included left hemiparesis, cortical blindness, urine incontinence, dysarthria and gait disorder. 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 According to [facility] documentation, he had a spell at his fdc that was concerning for seizure one month prior to his visit. BG at the time was in the 40s and he was started on Keppra in addition to Zonegran. [facility] neurologist planned for discontinuation of Keppra [...] Surgical History: Procedure Laterality Date PRO OPEN WOMEN'S SOCCER COACH FIX ACETABULAR FX Left 09/04/2017 @OPEN TREATMENT, ACETABULAR FX (WRVU 25.41) performed by Amy Lance MD at [facility] Allergies: Allergies Allergen Reactions Lopid [...] Flexor digitorum profundus Digit II-V flexion / fund accountant 5 5 L2-3 Iliopsoas Hip flexion 5 [...] 06/14/2024 4:02 AM) Result Value WORKSTATION ID [id number] Impression Low lung volumes with crowding of bronchovascular markings without radiographically evident acute cardiopulmonary process. Thank you for letting us participate in the care of this patient. If you are a health care provider and have any questions regarding this report, please contact the number below. For patients who have questions please contact the health director of career services that requested your imaging first. Electronically signed by: Beverley Valencia MD, [facility] ([phone]), at 06/14/2024 4:32 AM Assessment: Abrma Burgos is a 33 y.o. male with [...] 2024 4:20 PM EST Unlisted Mri Procedure ([id number]) 2024 2:56 PM EST Please evaluate lesion [...] 06/14/2024 9:46 AM EST URINALYSIS BEAKER MICROSCOPIC ([facility]) SHEEBA 06/14/2024 8:06 AM EST _URINALYSIS WITH [...] 47(H) <=39 unit/L 06/21/2024 1:30 AM EST [facility] Alanine Aminotransferase 64(H) 0 - 55 unit/L 06/21/2024 1:30 AM [facility] Alkaline Phosphatase 141(H) 40 - 130 unit/L 06/21/2024 1:30 AM [facility] Bilirubin, Total <0.2 <=1.3 mg/dL 06/21/2024 1:30 AM EST [facility] Bilirubin, Direct <0.2 0.0 - 0.3 mg/dL 06/21/2024 1:30 AM EST [facility] Protein, Total 7.1 6.1 - 8.0 g/dL 06/21/2024 1:30 AM [facility] Blood VENOUS BLOOD SPECIMEN / Unknown Venipuncture / Unknown 06/21/2024 12:50 AM EST 06/21/2024 12:56 AM EST Martinez Reynolds MD CHEMISTRY ORDERABLES [facility] [place] [address] * (ABNORMAL) CBC (with Diff) (06/21/2024 12:50 AM EST) [facility] Signature White Blood Cell 7.52 4.00 - 9.50 x10(3)/mc L 06/21/2024 1:09 AM [facility] Red Blood Cell 5.33 [...] HEMATOLOGY ORDERABLE S [facility] [place] [address] * Phosphorus (06/21/2024 12:50 AM EST) Pathologist [facility] Phosphorus 3.2 2.5 - 4.5 mg/dL 06/21/2024 1:30 AM [facility] Blood VENOUS BLOOD SPECIMEN / Unknown Venipuncture / Unknown 06/21/2024 12:50 AM EST 06/21/2024 12:56 AM EST Martinez Reynolds MD CHEMISTRY ORDERABLES Performing Organization Address City/[facility]/ZIP Co de Phone Number [facility] [place] [address] * Magnesium (06/21/2024 12:50 AM EST) [facility] Magnesium 0.81 0.69 - 1.07 mMol/L 06/21/2024 1:30 AM [facility] Blood VENOUS BLOOD SPECIMEN / Unknown Venipuncture / Unknown 06/21/2024 12:50 AM EST 06/21/2024 12:56 AM EST Martinez Reynolds MD CHEMISTRY ORDERABLES Performing Organization Address City/[facility]/ZIP Co de Phone Number [facility] [place] [address] * (ABNORMAL) Basic Metabolic Panel (06/21/2024 12:50 AM EST) [facility] Glucose 126 65 - 199 mg/dL [...] 8.5 - 10.5 mg/dL 06/21/2024 1:44 AM [facility] Est Glomerular Filtration Rate - Male 118 mL/min/1. 73 m?? 06/21/2024 1:44 AM [facility] Comment: [...] MD CHEMISTRY ORDERABLES [facility] [place] [address] * (ABNORMAL) Hepatic Function Panel (06/20/2024 12:53 AM EST) Albumin 4.4 3.2 - 5.2 g/dL 06/20/2024 1:42 AM [facility] Aspartate Aminotransferase 65(H) <=39 unit/L 06/20/2024 1:42 AM [facility] Alanine Aminotransferase 80(H) 0 [...] Reynolds MD CHEMISTRY ORDERABLES Performing Organization Address City/State/[facility] Co de Phone Number [facility] [place] [phone] * (ABNORMAL) CBC (with Diff) (06/20/2024 12:53 [...] % 0.4 % 06/20/2024 1:23 AM EST [facility] Baso Absolute <0.04 0.00 - 0.10 x10(3)/mc L 06/20/2024 1:23 AM EST [facility] Immature Gran % 0.5 % 1:23 AM EST [facility] Immature Gran Absolute <0.04 0.00 - 0.04 x10(3)/mc L 06/20/2024 1:23 AM EST [facility] Blood VENOUS BLOOD SPECIMEN / Unknown Venipuncture / Unknown 06/20/2024 12:53 AM EST 06/20/2024 1:12 AM EST Martinez Reynolds MD HEMATOLOGY ORDERABLE S [facility] [place] [address] * Phosphorus (06/20/2024 12:53 AM EST) Phosphorus 3.7 2.5 - 4.5 mg/dL 06/20/2024 1:42 AM EST [facility] Blood VENOUS BLOOD SPECIMEN / Unknown Venipuncture / Unknown 06/20/2024 12:53 AM EST 06/20/2024 1:11 AM EST Martinez Reynolds MD CHEMISTRY ORDERABLES [facility] [place] [address] * Magnesium (06/20/2024 12:53 AM EST) Magnesium 0.76 0.69 - 1.07 mMol/L 06/20/2024 1:42 AM EST [facility] Blood VENOUS BLOOD SPECIMEN / Unknown Venipuncture / Unknown 06/20/2024 12:53 AM EST 06/20/2024 1:11 AM EST Martinez Reynolds MD CHEMISTRY ORDERABLES [facility] [place] [address] * (ABNORMAL) Basic Metabolic Panel (06/20/2024 12:53 AM EST) Glucose 95 65 - 199 mg/dL 06/20/2024 1:42 AM [facility] Comment:Glucose [...] Reynolds MD CHEMISTRY ORDERABLES Performing Organization Address City/[facility]/ZIP Co de Phone Number [facility] [place] [address] * (ABNORMAL) Hepatic Function Panel (06/19/2024 4:10 [...] Reynolds MD CHEMISTRY ORDERABLES Performing Organization Address City/[facility]/ZIP Co de Phone Number [facility] [place] [address] * (ABNORMAL) CBC (with Diff) (06/19/2024 4:10 AM [facility]) White Blood Cell 6.86 4.00 - 9.50 [...] HEMATOLOGY ORDERABLE S [facility] [place] [address] * (ABNORMAL) Phosphorus (06/19/2024 4:10 AM EST) Phosphorus 5.0(H) 2.5 - 4.5 mg/dL 06/19/2024 4:51 AM EST [facility] Blood VENOUS BLOOD SPECIMEN / Unknown Venipuncture / Unknown 06/19/2024 4:10 AM EST 06/19/2024 4:21 AM EST Martinez Reynolds MD CHEMISTRY ORDERABLES Performing Organization Address [facility] Co de Phone Number [facility] [place] [address] * Magnesium (06/19/2024 4:10 AM EST) [facility] Magnesium 0.74 0.69 - 1.07 mMol/L 06/19/2024 4:51 AM [facility] Blood VENOUS BLOOD SPECIMEN / Unknown Venipuncture / Unknown 06/19/2024 4:10 AM EST 06/19/2024 4:21 AM EST Martinez Reynolds MD CHEMISTRY ORDERABLES Performing Organization Address City/[facility] Co de Phone Number [facility] [place] [address] * (ABNORMAL) Basic Metabolic Panel (06/19/2024 4:10 AM EST) [facility] Glucose 112 65 - 199 mg/dL [...] - 107 mMol/L 06/19/2024 4:51 AM EST [facility] Carbon Dioxide 25 22 - 31 mMol/L 06/19/2024 4:51 AM [facility] Anion Gap 13 5 - 15 mMol/L 06/19/2024 4:51 AM EST [facility] Calcium 9.4 8.5 - 10.5 mg/dL 06/19/2024 4:51 AM EST [facility] Est Glomerular Filtration Rate - Male 117 mL/min/1. 73 m?? 06/19/2024 4:51 AM EST [facility] Comment: [...] Reynolds MD CHEMISTRY ORDERABLES Performing Organization Address City/State/[facility] Co de Phone Number [facility] [place] [address] * (ABNORMAL) Urinalysis with reflex Culture (06/19/2024 3:22 AM EST) Glucose, Urine Dipstick Negative Negative 06/19/2024 3:37 AM EST [facility] Protein, Urine Dipstick Negative Negative 06/19/2024 3:37 AM EST [facility] Bilirubin, Urine Dipstick Negative Negative 06/19/2024 3:37 AM [facility] Comment:Clinical correlation required for positive Urine Bilirubin results as false positive may occur with some drugs and drug related products. If a false positive is suspected a serum total bilirubin should be considered if clinically indicated. Urobilinogen, Urine Dipstick Normal Normal, 0.2 mg/dL, 1.0 mg/dL 06/19/2024 3:37 AM [facility] pH, Urine (dipstick) 6.5 5.0 - 8.0 06/19/2024 3:37 AM [facility] Blood, Urine Dipstick Negative Negative 06/19/2024 3:37 AM [facility] Ketone, Urine Dipstick Negative Negative 06/19/2024 3:37 AM [facility] Nitrite, Urine Dipstick Negative Negative 06/19/2024 3:37 AM [facility] Leukocytes, Urine Dipstick Negative Negative 06/19/2024 3:37 AM [facility] Specific [place] Urine Automated 1.021 1.005 - 1.030 06/19/2024 [...] AM EST Pamela Johnson [place] [address] * XR Chest One View (06/18/2024 7:55 PM EST) WORKSTATION ID [id number] DH RAD Anatomical Region Laterality Modality Chest [...] who have questions please contact the health director of career services that requested your imaging first. ? Electronically signed by: Tobias Sotomayor MD, [facility] ([phone]), at 06/18/2024 8:09 PM Narrative 06/18/2024 8:09 [...] patients who have questions please contactthe health director of career services that requested your imaging first. Electronically signed by: Tobias Sotomayor MD, [facility]([phone]), at 06/18/2024 8:09 PM Pamela E Alex DO IMG DX ORDERABLES * Blood culture (06/18/2024 7:00 PM EST) Blood Culture No growth at 120 hours 06/23/2024 8:00 PM EST [facility] Blood VENOUS BLOOD SPECIMEN / Unknown Venipuncture / Unknown 06/18/2024 7:00 PM EST 06/18/2024 7:05 PM EST Pamela E Alex DO MICROBIOLOGY - BL OOD ORDERABLES Performing Organization Address [facility] Co de Phone Number [facility] [place] [address] * (ABNORMAL) Blood culture (06/18/2024 7:00 PM [...] in clusters(Critical ) 06/23/2024 6:52 AM EST [facility] Comment:This is an appended report. These results have been appended to a previously preliminary verified report. Blood VENOUS BLOOD SPECIMEN / Unknown Venipuncture / Unknown 06/18/2024 7:00 PM EST 06/18/2024 7:05 PM EST Pamela E Alex DO MICROBIOLOGY - BL OOD ORDERABLES Performing Organization Address [facility]/ZIP Co de Phone Number [facility] [place] [address] * POC, GLUCOSE (06/18/2024 6:55 PM EST) Glucometer, POC 100 65 - 199 mg/dL 06/18/2024 6:56 PM EST [facility] Comment:Supplemental ranges: <140 mg/dL before meals <180 mg/dL all other times of the day. Blood CAPILLARY BLOOD / Unknown 06/18/2024 6:55 PM EST 06/18/2024 6:56 PM EST Pamela Johnson DO POINT OF CARE TABATHA T ORDERABLES [facility] [place] [address] * EKG 12 Lead (06/18/2024 1:41 PM EST) [facility] Ventricular rate 47 BPM MUSE SYSTEM Atrial Rate 47 BPM MUSE SYSTEM P-R Interval 186 ms MUSE SYSTEM QRS Duration 114 ms MUSE SYSTEM Q-T Interval 558 ms MUSE SYSTEM QTC Calculated (Bezet) 493 ms MUSE SYSTEM Calculated P [place] 11 degrees MUSE SYSTEM Calculated R [place] 45 degrees MUSE SYSTEM Calculated T [place] 45 degrees MUSE SYSTEM INTERPRETATION Sinus bradycardia [...] EST Pameladillon Johnson DO CHEMISTRY ORDERAB LES [facility] [place] [address] * CT Head wo Contrast (Generic) (06/18/2024 11:18 AM EST) WORKSTATION ID [id number] RAD Anatomical Region Laterality Modality Head Computed [...] who have questions please contact the health director of career services that requested your imaging first. ? Electronically signed by: Jimbo Casillas MD, [facility] [place] ([phone]), at 06/18/2024 11:37 AM Narrative 06/18/2024 11:37 [...] patients who have questions please contactthe health director of career services that requested your imaging first. Electronically signed by: Jimbo Casillas MD, [facility]([phone]), at 06/18/2024 11:37 AM Pamela Johnson DO IMG CT ORDERABLES * (ABNORMAL) Hepatic Function Panel (06/18/2024 1:26 AM EST) Albumin 4.2 3.2 - 5.2 g/dL 06/18/2024 2:02 AM [facility] Aspartate Aminotransferase 52(H) <=39 unit/L 06/18/2024 2:02 AM [facility] Alanine Aminotransferase 61(H) 0 - 55 unit/L 06/18/2024 2:02 AM [facility] Alkaline Phosphatase 118 40 - 130 unit/L 06/18/2024 2:02 AM [facility] Bilirubin, Total 0.3 <=1.3 mg/dL 06/18/2024 2:02 AM [facility] Bilirubin, Direct <0.2 0.0 - 0.3 mg/dL 06/18/2024 2:02 AM [facility] Protein, Total 6.9 6.1 - 8.0 g/dL 06/18/2024 2:02 AM [facility] Blood VENOUS BLOOD SPECIMEN / Unknown Venipuncture / Unknown 06/18/2024 1:26 AM EST 06/18/2024 1:34 AM EST Martinez Reynolds MD CHEMISTRY ORDERABLES Performing Organization Address City/State/[facility] Co de Phone Number [facility] [place] [address] * (ABNORMAL) CBC (with Diff) (06/18/2024 1:26 [...] - 0.10 x10(3)/mc L 06/18/2024 1:38 AM [facility] Immature Gran % 0.4 % 1:38 AM [facility] Immature Gran Absolute 0.04 0.00 - 0.04 x10(3)/mc L 06/18/2024 1:38 AM EST [facility] Blood VENOUS BLOOD SPECIMEN / Unknown Venipuncture / Unknown 06/18/2024 1:26 AM EST 06/18/2024 1:34 AM EST Martniez Reynolds MD HEMATOLOGY ORDERABLE S Performing Organization Address City/[facility]/ZIP Co de Phone Number [facility] [place] [address] * (ABNORMAL) Phosphorus (06/18/2024 1:26 AM EST) Phosphorus 5.7(H) 2.5 - 4.5 mg/dL 06/18/2024 2:02 AM EST [facility] Blood VENOUS BLOOD SPECIMEN / Unknown Venipuncture / Unknown 06/18/2024 1:26 AM EST 06/18/2024 1:34 AM EST Martinez Reynolds MD CHEMISTRY ORDERABLES Performing Organization Address City/[facility] Co de Phone Number [facility] [place] [address] * Magnesium (06/18/2024 1:26 AM EST) Pathologist [facility] Magnesium 0.84 0.69 - 1.07 mMol/L 06/18/2024 2:02 AM EST [facility] Blood VENOUS BLOOD SPECIMEN / Unknown Venipuncture / Unknown 06/18/2024 1:26 AM EST 06/18/2024 1:34 AM EST Martinez Reynolds MD CHEMISTRY ORDERABLES Performing Organization Address City/[facility]/ZIP Co de Phone Number [facility] [place] [address] * Basic Metabolic Panel (06/18/2024 1:26 AM EST) Glucose 106 65 - 199 mg/dL 06/18/2024 2:02 AM EST [facility] Comment:Glucose Concentratio n >=200 mg/dL plus symptoms is consistent with Diabetes Mellitus. Blood Urea Nitrogen 15 10 - 20 mg/dL 06/18/2024 2:02 AM [facility] Creatinine 1.05 0.80 - 1.50 mg/dL 06/18/2024 2:02 AM [facility] Sodium 138 135 - [...] MD CHEMISTRY ORDERABLES [facility] [place] [address] * EKG 12 Lead (06/18/2024 12:53 AM EST) Pathologist [facility] Ventricular rate 79 BPM MUSE SYSTEM Atrial Rate 79 BPM MUSE SYSTEM P-R Interval 160 ms MUSE SYSTEM QRS Duration 98 ms MUSE SYSTEM Q-T Interval 420 ms MUSE SYSTEM QTC Calculated (Bezet) 481 ms MUSE SYSTEM Calculated P [place] 17 degrees MUSE SYSTEM Calculated R [place] 46 degrees MUSE SYSTEM Calculated T [place] 45 degrees MUSE SYSTEM INTERPRETATION Normal sinus rhythm Nonspecific T wave abnormality Prolonged QT Abnormal ECG When compared with ECG of 14-JUN-2024 01:04, Nonspecific T wave abnormality now evident in Anterior leads I personally reviewed the tracing and edited the fellows interpretation Confirmed by fellow MD Corbin, Maninder ([id number]) on 06/18/2024 4:57:53 PM Confirmed by Anthony Penn MD ([id number]) on 06/19/2024 3:21:54 PM MUSE SYSTEM 06/18/2024 12:5 3 AM EST 06/19/2024 3:21 PM EST Samantha Babb MD ECG ORDERABLES MUSE SYSTEM * Sodium (06/17/2024 5:50 PM EST) Pathologist [facility] Sodium 141 135 - 145 mMol/L 06/17/2024 6:38 PM EST [facility] Blood VENOUS BLOOD SPECIMEN / Unknown Venipuncture / Unknown 06/17/2024 5:50 PM EST 06/17/2024 6:07 PM EST Channing Ballesteros MD CHEMISTRY ORDERABLES [facility] [place] [address] * (ABNORMAL) Hepatic Function Panel (06/17/2024 11:58 AM EST) Pathologist [facility] Albumin 4.2 3.2 - 5.2 g/dL 06/17/2024 12:45 PM EST [facility] Aspartate Aminotransferase 37 <=39 unit/L 06/17/2024 12:45 PM [facility] Alanine Aminotransferase 58(H) 0 - 55 unit/L 06/17/2024 12:45 PM [facility] Alkaline Phosphatase 118 40 - 130 unit/L 06/17/2024 12:45 PM [facility] Bilirubin, Total 0.2 <=1.3 mg/dL 06/17/2024 12:45 PM [facility] Bilirubin, Direct <0.2 0.0 - 0.3 mg/dL 06/17/2024 12:45 PM [facility] Protein, Total 7.1 6.1 - 8.0 g/dL 06/17/2024 12:45 PM [facility] Blood VENOUS BLOOD SPECIMEN / Unknown Venipuncture / Unknown 06/17/2024 11:58 AM EST 06/17/2024 12:11 PM EST Pamela Johnson DO CHEMISTRY ORDERAB LES [facility] [place] [address] * Sodium (06/17/2024 11:58 AM EST) Sodium 141 135 - 145 mMol/L 06/17/2024 12:45 PM EST [facility] Blood VENOUS BLOOD SPECIMEN / Unknown Venipuncture / Unknown 06/17/2024 11:58 AM EST 06/17/2024 12:11 PM EST Channing Ballesteros MD CHEMISTRY ORDERABLES [facility] [place] [address] * Sodium (06/17/2024 6:23 AM EST) Sodium 140 135 - 145 mMol/L 06/17/2024 6:53 AM EST [facility] Blood VENOUS BLOOD SPECIMEN / Unknown Venipuncture / Unknown 06/17/2024 6:23 AM EST 06/17/2024 6:29 AM EST Channing Ballesteros MD CHEMISTRY ORDERABLES [facility] [place] [address] * (ABNORMAL) CBC (with Diff) (06/17/2024 12:22 [...] HEMATOLOGY ORDERABLE S [facility] [place] [address] * Phosphorus (06/17/2024 12:22 AM EST) Phosphorus 4.3 2.5 - 4.5 mg/dL 06/17/2024 12:58 AM EST [facility] Blood VENOUS BLOOD SPECIMEN / Unknown Venipuncture / Unknown 06/17/2024 12:22 AM EST 06/17/2024 12:28 AM EST Martinez Reynolds MD CHEMISTRY ORDERABLES Performing Organization Address City/[facility]/ZIP Co de Phone Number [facility] [place] [address] * Magnesium (06/17/2024 12:22 AM EST) Magnesium 0.88 0.69 - 1.07 mMol/L 06/17/2024 12:58 AM EST [facility] Blood VENOUS BLOOD SPECIMEN / Unknown Venipuncture / Unknown 06/17/2024 12:22 AM EST 06/17/2024 12:28 AM EST Martinez Reynolds MD CHEMISTRY ORDERABLES Performing Organization Address City/[facility]/ZIP Co de Phone Number [facility] [place] [address] * Basic Metabolic Panel (06/17/2024 12:22 AM EST) Glucose 99 65 - 199 mg/dL 06/17/2024 1:12 AM EST [facility] Comment:Glucose Concentratio n >=200 mg/dL plus symptoms is consistent with Diabetes Mellitus. Blood Urea Nitrogen 14 10 - 20 mg/dL 06/17/2024 1:12 AM EST [facility] Creatinine 0.90 0.80 - [...] 22 - 31 mMol/L 06/17/2024 1:12 AM [facility] Anion Gap 11 5 - 15 mMol/L 06/17/2024 1:12 AM [facility] Calcium 9.4 8.5 - 10.5 mg/dL 06/17/2024 1:12 AM [facility] Est Glomerular Filtration Rate - Male 115 mL/min/1. 73 m?? 06/17/2024 1:12 AM [facility] Comment: [...] MD CHEMISTRY ORDERABLES [facility] [place] [address] * Sodium (06/16/2024 6:37 PM EST) Sodium 142 135 - 145 mMol/L 06/16/2024 6:55 PM [facility] Blood VENOUS BLOOD SPECIMEN / Unknown Venipuncture / Unknown 06/16/2024 6:37 PM EST 06/16/2024 6:42 PM EST Channing Ballesteros MD CHEMISTRY ORDERABLES Performing Organization Address [facility]/ZIP Co de Phone Number [facility] [place] [address] * Sodium (06/16/2024 2:05 PM EST) Sodium 135 135 - 145 mMol/L 06/16/2024 2:54 PM EST [facility] Blood VENOUS BLOOD SPECIMEN / Unknown Venipuncture / Unknown 06/16/2024 2:05 PM EST 06/16/2024 2:23 PM EST Channing Ballesteros MD CHEMISTRY ORDERABLES Performing Organization Address [facility]/ZIP Co de Phone Number [facility] [place] [address] * Sodium (06/16/2024 12:03 PM EST) Sodium 139 135 - 145 mMol/L 06/16/2024 1:02 PM EST [facility] Blood VENOUS BLOOD SPECIMEN / Unknown Venipuncture / Unknown 06/16/2024 12:03 PM EST 06/16/2024 12:06 PM EST Marline Calderon APRN CHEMISTRY ORDERABL ES Performing Organization Address City/[facility]/ZIP Co de Phone Number [facility] [place] [address] * (ABNORMAL) Sodium (06/16/2024 6:00 AM EST) Sodium 131(L) 135 - 145 mMol/L 06/16/2024 6:26 AM EST [facility] Blood VENOUS BLOOD SPECIMEN / Unknown Venipuncture / Unknown 06/16/2024 6:00 AM EST 06/16/2024 6:03 AM EST Marline Calderon MILKING MACHINE OPERATOR CHEMISTRY ORDERABL ES [facility] [place] [address] * (ABNORMAL) CBC (with Diff) (06/16/2024 12:09 [...] - 6.10 x10(3)/mc L 06/16/2024 12:26 AM [facility] Lymph % 23.7 % 06/16/2024 12:26 AM [facility] Lymph Absolute 1.83 0.90 - 3.20 x10(3)/mc L 06/16/2024 12:26 AM [facility] Monocyte % 9.7 % 06/16/2024 12:26 AM [facility] Monocyte Absolute 0.75 0.30 - 0.90 x10(3)/mc L 06/16/2024 12:26 AM [facility] [...] HEMATOLOGY ORDERABLE S [facility] [place] [address] * Phosphorus (06/16/2024 12:09 AM EST) Phosphorus 3.2 2.5 - 4.5 mg/dL 06/16/2024 12:50 AM EST [facility] Blood VENOUS BLOOD SPECIMEN / Unknown Venipuncture / Unknown 06/16/2024 12:09 AM EST 06/16/2024 12:21 AM EST Martinez Reynolds MD CHEMISTRY ORDERABLES Performing Organization Address City/[facility]/ZIP Co de Phone Number [facility] [place] [address] * Magnesium (06/16/2024 12:09 AM EST) Magnesium 0.85 0.69 - 1.07 mMol/L 06/16/2024 12:50 AM EST [facility] Blood VENOUS BLOOD SPECIMEN / Unknown Venipuncture / Unknown 06/16/2024 12:09 AM EST 06/16/2024 12:21 AM EST Martinez Reynolds MD CHEMISTRY ORDERABLES [facility] [place] [address] * (ABNORMAL) Basic Metabolic Panel (06/16/2024 12:09 AM EST) Glucose 92 65 - 199 mg/dL 06/16/2024 12:50 AM EST [facility] Comment:Glucose Concentratio n >=200 mg/dL plus symptoms is consistent with Diabetes Mellitus. Blood Urea Nitrogen 12 10 - 20 mg/dL 06/16/2024 12:50 AM EST [facility] Creatinine 0.92 0.80 - [...] 5 - 15 mMol/L 06/16/2024 12:50 AM [facility] Calcium 8.3(L) 8.5 - 10.5 mg/dL 06/16/2024 12:50 AM [facility] Est Glomerular Filtration Rate - Male 112 mL/min/1. 73 m?? 06/16/2024 12:50 AM [facility] Comment: [...] MD CHEMISTRY ORDERABLES [facility] [place] [address] * (ABNORMAL) Sodium (2024 5:58 PM EST) Sodium 129(L) 135 - 145 mMol/L 2024 6:37 PM [facility] Blood VENOUS BLOOD SPECIMEN / Unknown Venipuncture / Unknown 2024 5:58 PM EST 2024 6:05 PM EST Marline Calderon MILKING MACHINE OPERATOR CHEMISTRY ORDERABL ES [facility] [place] [address] * MRI Brain wwo Contrast (Generic) (2024 4:20 PM EST) WORKSTATION ID [id number] RAD Anatomical Region Laterality Modality Head Magnetic [...] who have questions please contact the health director of career services that requested your imaging first. ? Electronically signed by: Raudel Heredia MD, [facility] [place] ([phone]), at 2024 4:46 PM Narrative 2024 4:46 [...] clip with its blades near the right RIG BUILDER HELPER. Procedure Note Raudel Heredia MD - 2024 [...] aneurysm clipwith its blades near the right RIG BUILDER HELPER. IMPRESSION Homogeneously enhancing 3.5 cm mass along [...] patients who have questions please contactthe health director of career services that requested your imaging first. Electronically signed by: Raudel Heredia MD, [facility]([phone]), at 2024 4:46 PM Marline Calderon APRN IMG MRI ORDERABLES * (ABNORMAL) Sodium (2024 12:07 PM EST) Sodium 129(L) 135 - 145 mMol/L 2024 12:47 PM EST [facility] Blood VENOUS BLOOD SPECIMEN / Unknown Venipuncture / Unknown 2024 12:07 PM EST 2024 12:33 PM EST Marline Calderon APRN CHEMISTRY ORDERABL ES Performing Organization Address City/[facility]/ZIP Co de Phone Number [facility] [place] [address] * (ABNORMAL) Sodium (2024 5:54 AM EST) Sodium 128(L) 135 - 145 mMol/L 2024 6:42 AM EST [facility] Blood VENOUS BLOOD SPECIMEN / Unknown Venipuncture / Unknown 2024 5:54 AM EST 2024 6:14 AM EST Marline Calderon MILKING MACHINE OPERATOR CHEMISTRY ORDERABL ES [facility] [place] [address] * (ABNORMAL) CBC (with Diff) (2024 12:06 AM EST) White Blood Cell 6.30 4.00 - 9.50 x10(3)/mc L 2024 12:17 AM EST [facility] Red Blood Cell 4.79 4.58 - 5.54 x10(6)/mc L 2024 12:17 AM EST [facility] Hemoglobin 11.9(L) 13.7 - 16.5 [...] - 0.40 x10(3)/mc L 2024 12:17 AM [facility] Basophil [...] MD HEMATOLOGY ORDERABLE S Performing Organization Address City/State/[facility] Co de Phone Number [facility] [place] [address] * Phosphorus (2024 12:06 AM EST) Phosphorus 2.8 2.5 - 4.5 mg/dL 2024 12:39 AM [facility] Blood VENOUS BLOOD SPECIMEN / Unknown Venipuncture / Unknown 2024 12:06 AM EST 2024 12:10 AM EST Martinez Reynolds MD CHEMISTRY ORDERABLES [facility] [place] [address] * Magnesium (2024 12:06 AM EST) Pathologist [facility] Magnesium 0.79 0.69 - 1.07 mMol/L 2024 12:39 AM [facility] Blood VENOUS BLOOD SPECIMEN / Unknown Venipuncture / Unknown 2024 12:06 AM EST 2024 12:10 AM EST Martinez Reynolds MD CHEMISTRY ORDERABLES Performing Organization Address City/[facility]/ZIP Co de Phone Number [facility] [place] [address] * (ABNORMAL) Basic Metabolic Panel (2024 12:06 AM EST) Pathologist [facility] Glucose 103 65 - 199 mg/dL 2024 [...] - 10.5 mg/dL 2024 12:39 AM EST [facility] Est Glomerular Filtration Rate - Male 122 mL/min/1. 73 m?? 2024 12:39 AM EST [facility] Comment: [...] MD CHEMISTRY ORDERABLES [facility] [place] [address] * (ABNORMAL) Sodium (06/14/2024 6:49 PM EST) Sodium 126(L) 135 - 145 mMol/L 06/14/2024 7:17 PM EST [facility] Blood VENOUS BLOOD SPECIMEN / Unknown Venipuncture / Unknown 06/14/2024 6:49 PM EST 06/14/2024 6:53 PM EST Marline Calderon APRN CHEMISTRY ORDERABL ES [facility] [place] [address] * EEG Continuous Monitoring Inpatient (06/14/2024 3:33 [...] - 145 mMol/L 06/14/2024 3:18 PM EST [facility] Blood VENOUS BLOOD SPECIMEN / Unknown Venipuncture / Unknown 06/14/2024 2:15 PM EST 06/14/2024 2:36 PM EST Mariola Alfred MD CHEMISTRY ORDERABLES Performing Organization Address City/[facility]/ZIP Co de Phone Number [facility] [place] [address] * (ABNORMAL) Sodium (06/14/2024 12:12 PM EST) Sodium 125(L) 135 - 145 mMol/L 06/14/2024 12:48 PM EST [facility] Blood VENOUS BLOOD SPECIMEN / Unknown Venipuncture / Unknown 06/14/2024 12:12 PM EST 06/14/2024 12:20 PM EST Mariola Alfred MD CHEMISTRY ORDERABLES [facility] [place] [address] * (ABNORMAL) Sodium (06/14/2024 10:35 AM EST) Sodium 125(L) 135 - 145 mMol/L 06/14/2024 11:21 AM EST [facility] Blood VENOUS BLOOD SPECIMEN / Unknown Venipuncture / Unknown 06/14/2024 10:35 AM EST 06/14/2024 10:44 AM EST Mariola Alfred MD CHEMISTRY ORDERABLES [facility] [place] [address] * Request For 2nd Read CT Head (06/14/2024 9:46 AM EST) WORKSTATION ID [id number] RAD Anatomical Region Laterality Modality Head SO [...] who have questions please contact the health director of career services that requested your imaging first. ? Narrative 06/14/2024 10:41 AM EST EXAMINATION: REQUEST FOR 2ND READ CT HEAD CLINICAL HISTORY: New seizure with known mass, ?enlargening. Presenting with seizure; Sending Institution [facility]; Date of exam [id number]; I believe a reinterpretation of this exam may alter care of Patient. Yes TECHNIQUE: Reinterpretation of noncontrast CT head performed at [facility] 06/13/2024 at 2143 hours COMPARISON: Noncontrast [...] known mass, ?enlargening. Presentingwith seizure; Sending Institution [facility]; Date of exam [id number]; I believe [...] patients who have questions please contactthe health director of career services that requested your imaging first. Electronically signed by: Galen Balderas [facility]([phone]), at 06/14/2024 10:41 AM Lexie Osullivan MILKING MACHINE OPERATOR IMG OUTSIDE INTERP RETATION ORDERABLES * (ABNORMAL) Urinalysis Microscopic (06/14/2024 8:06 AM EST) Bacteria, Urine None None /HPF 12:26 PM [facility] Amorphous Crystals, Urine Many(A) [...] EST 06/14/2024 8:52 AM EST Marline Calderon MILKING MACHINE OPERATOR URINE ORDERABLES Performing Organization Address City/[facility]/ZIP Co de Phone Number [facility] [place] [address] * Urinalysis Microscopic Exam (06/14/2024 8:06 AM EST) Urine URINE SPECIMEN / Unknown Non Blood Collection / Unknown 06/14/2024 8:06 AM EST 06/14/2024 8:52 AM EST Marline Calderon MILKING MACHINE OPERATOR URINE ORDERABLES [facility] [place] [address] * (ABNORMAL) Urinalysis Dipstick (06/14/2024 8:06 AM [...] PM [facility] Specific [place] Urine Automated 1.016 1.005 - 1.030 06/14/2024 [...] APRN URINE ORDERABLES [facility] [place] [address] * (ABNORMAL) Sodium (06/14/2024 8:06 AM EST) Sodium 124(L) 135 - 145 mMol/L 06/14/2024 9:59 AM EST [facility] Blood VENOUS BLOOD SPECIMEN / Unknown Venipuncture / Unknown 06/14/2024 8:06 AM EST 06/14/2024 8:53 AM EST Mariola Alfred MD CHEMISTRY ORDERABLES [facility] [place] [address] * Electrolytes, urine, random (06/14/2024 8:06 AM [...] Alfred MD URINE ORDERABLES Performing Organization Address City/[facility]/ZIP Co de Phone Number [facility] [place] [address] * Osmolality, urine, random (06/14/2024 8:06 AM EST) Osmolality, Urine 496 50 - 1,200 mOsm/kg 06/14/2024 10:55 AM EST [facility] Urine URINE SPECIMEN / Unknown Non Blood Collection / Unknown 06/14/2024 8:06 AM EST 06/14/2024 8:52 AM EST Mariola Alfred MD URINE ORDERABLES [facility] [place] [address] * (ABNORMAL) CBC (with Diff) (06/14/2024 5:27 AM EST) [facility] Signature White Blood Cell 8.68 4.00 - 9.50 x10(3)/mc L 06/14/2024 5:54 AM [facility] Red Blood Cell 5.08 [...] HEMATOLOGY ORDERABLE S [facility] [place] [address] * Phosphorus (06/14/2024 5:27 AM EST) Pathologist [facility] Phosphorus 2.8 2.5 - 4.5 mg/dL 06/14/2024 8:36 AM [facility] Blood VENOUS BLOOD SPECIMEN / Unknown Venipuncture / Unknown 06/14/2024 5:27 AM EST 06/14/2024 5:45 AM EST Martinez Reynolds MD CHEMISTRY ORDERABLES Performing Organization Address City/[facility]/ZIP Co de Phone Number [facility] [place] [address] * Magnesium (06/14/2024 5:27 AM EST) [facility] Magnesium 0.83 0.69 - 1.07 mMol/L 06/14/2024 6:22 AM [facility] Blood VENOUS BLOOD SPECIMEN / Unknown Venipuncture / Unknown 06/14/2024 5:27 AM EST 06/14/2024 5:45 AM EST Martinez Reynolds MD CHEMISTRY ORDERABLES Performing Organization Address City/[facility]/ZIP Co de Phone Number [facility] [place] [address] * (ABNORMAL) Basic Metabolic Panel (06/14/2024 5:27 AM EST) [facility] Glucose 109 65 - 199 mg/dL [...] - 5.0 mMol/L 06/14/2024 6:22 AM EST [facility] Chloride 93(L) 98 - 107 mMol/L 06/14/2024 6:22 AM EST [facility] Carbon Dioxide 19(L) 22 - 31 mMol/L 06/14/2024 6:22 AM [facility] Anion Gap 12 5 - 15 mMol/L 06/14/2024 6:22 AM [facility] Calcium 7.9(L) 8.5 - 10.5 mg/dL 06/14/2024 6:22 AM EST [facility] Est Glomerular Filtration Rate - Male 122 mL/min/1. 73 m?? 06/14/2024 6:22 AM [facility] Comment: [...] MD CHEMISTRY ORDERABLES [facility] [place] [address] * XR Chest One View (06/14/2024 4:02 AM EST) WORKSTATION ID [id number] RAD Anatomical Region Laterality Modality Chest N/A [...] who have questions please contact the health director of career services that requested your imaging first. ? Electronically signed by: Beverley Valencia MD, [facility] ([phone]), at 06/14/2024 4:32 AM Narrative 06/14/2024 4:32 [...] patients who have questions please contactthe health director of career services that requested your imaging first. Electronically signed by: Beverley Valencia MD, [facility]([phone]), at 06/14/2024 4:32 AM Mariola Alfred MD IMG DX ORDERABLES * (ABNORMAL) Sodium (06/14/2024 3:32 AM EST) Sodium 122(L) 135 - 145 mMol/L 06/14/2024 4:02 AM [facility] Blood VENOUS BLOOD SPECIMEN / Unknown Venipuncture / Unknown 06/14/2024 3:32 AM EST 06/14/2024 3:37 AM EST Mariola Alfred MD CHEMISTRY ORDERABLES [place] [facility] [place] [id number] * (ABNORMAL) Blood Gas, Venous POC (06/14/2024 [...] MD POINT OF CARE TEST O RDERABLES [facility] [place] [address] * POC, GLUCOSE (06/14/2024 1:06 AM EST) Glucometer, POC 113 65 - 199 mg/dL 06/14/2024 1:06 AM [facility] Comment:Supplemental ranges: <140 mg/dL before meals <180 mg/dL all other times of the day. Blood CAPILLARY BLOOD / Unknown 06/14/2024 1:06 AM EST 06/14/2024 1:06 AM EST Mariola Alfred MD POINT OF CARE TEST O RDERABLES [facility] [place] [address] * EKG 12 Lead (06/14/2024 1:04 AM EST) Ventricular rate 85 BPM MUSE SYSTEM Atrial Rate 85 BPM MUSE SYSTEM P-R Interval 182 ms MUSE SYSTEM QRS Duration 94 ms MUSE SYSTEM Q-T Interval 388 ms MUSE SYSTEM QTC Calculated (Bezet) 461 ms MUSE SYSTEM Calculated P [place] 35 degrees MUSE SYSTEM Calculated R [place] 57 degrees MUSE SYSTEM Calculated T [place] 48 degrees MUSE SYSTEM INTERPRETATION Normal sinus rhythm Normal ECG When compared with ECG of 01-MAR-2018 09:20, Nonspecific T wave abnormality no longer evident in Inferior leads T wave inversion no longer evident in Lateral leads I personally reviewed the tracing and edited the fellows interpretation Confirmed by fellow Rosalie Obrien ([id number]) on 2024 9:31:30 PM Confirmed by Hannah Marin MD ([id number]) on 06/17/2024 11:43:44 AM MUSE SYSTEM 06/14/2024 1:04 AM EST 06/17/2024 11:43 AM EST Mariola Alfred MD ECG ORDERABLES Performing Organization Address [facility]/ZIP Co de Phone Number MUSE SYSTEM * Scan, Peripheral Blood (06/14/2024 1:03 AM EST) RBC Morphology Abnormal 06/14/2024 2:00 AM EST [facility] Platelet Estimate Normal Normal 06/14/2024 2:00 AM EST [facility] Microcyte 1-5 /HPF 06/14/2024 2:00 AM EST [facility] Tear Cell 1-5 /HPF 06/14/2024 2:00 AM EST [facility] Blood VENOUS BLOOD SPECIMEN / Unknown Venipuncture / Unknown 06/14/2024 1:03 AM EST 06/14/2024 1:08 AM EST Mariola Alfred MD HEMATOLOGY ORDERABLE S [facility] [place] [address] * (ABNORMAL) CBC (with Diff) (06/14/2024 1:03 AM [facility]) White Blood Cell 10.38(H) 4.00 - 9.50 x10(3)/mc L 06/14/2024 2:00 AM [facility] Red Blood Cell 5.05 [...] HEMATOLOGY ORDERABLE S [facility] [place] [address] * (ABNORMAL) Phosphorus (06/14/2024 1:03 AM EST) Phosphorus 1.5(L) 2.5 - 4.5 mg/dL 06/14/2024 1:46 AM EST [facility] Blood VENOUS BLOOD SPECIMEN / Unknown Venipuncture / Unknown 06/14/2024 1:03 AM EST 06/14/2024 1:08 AM EST Martinez Reynolds MD CHEMISTRY ORDERABLES Performing Organization Address [facility]/ZIP Co de Phone Number [facility] [place] [address] * Magnesium (06/14/2024 1:03 AM EST) Magnesium 0.90 0.69 - 1.07 mMol/L 06/14/2024 1:46 AM EST [facility] Blood VENOUS BLOOD SPECIMEN / Unknown Venipuncture / Unknown 06/14/2024 1:03 AM EST 06/14/2024 1:08 AM EST Martinez Reynolds MD CHEMISTRY ORDERABLES Performing Organization Address City/[facility]/ZIP Co de Phone Number [facility] [place] [address] * (ABNORMAL) Basic Metabolic Panel (06/14/2024 1:03 AM EST) Glucose 95 65 - 199 mg/dL 06/14/2024 1:49 AM EST [facility] Comment:Glucose Concentratio n >=200 mg/dL plus symptoms is consistent with Diabetes Mellitus. Blood Urea Nitrogen 14 10 - 20 mg/dL 06/14/2024 1:49 AM EST [facility] Creatinine 0.80 0.80 - 1.50 mg/dL 06/14/2024 1:49 AM EST [facility] Sodium 123(L) 135 - 145 mMol/L 06/14/2024 1:49 AM EST [facility] Potassium 3.7 3.5 - 5.0 mMol/L 06/14/2024 1:49 AM [facility] Chloride 91(L) 98 - 107 mMol/L 06/14/2024 1:49 AM [facility] Carbon Dioxide 19(L) 22 - 31 mMol/L 06/14/2024 1:49 AM [facility] Anion Gap 13 5 - 15 mMol/L 06/14/2024 1:49 AM [facility] Calcium 8.1(L) 8.5 - 10.5 mg/dL 06/14/2024 1:49 AM [facility] Est Glomerular Filtration Rate - Male 120 mL/min/1. 73 m?? 06/14/2024 1:49 AM [facility] Comment: [...] MD CHEMISTRY ORDERABLES [facility] [place] [address] * (ABNORMAL) Osmolality (06/14/2024 1:03 AM EST) Osmolality 259(L) 275 - 295 mOsm/kg 06/14/2024 1:40 AM [facility] Blood VENOUS BLOOD SPECIMEN / Unknown Venipuncture / Unknown 06/14/2024 1:03 AM EST 06/14/2024 1:08 AM EST Mariola Alfred MD CHEMISTRY ORDERABLES [facility] [place] [address] * T3 Total (06/14/2024 1:03 AM EST) Pathologist [facility] T3 Total 87 80 - 200 ng/dL 06/14/2024 1:46 AM EST [facility] Blood VENOUS BLOOD SPECIMEN / Unknown Venipuncture / Unknown 06/14/2024 1:03 AM EST 06/14/2024 1:08 AM EST Mariola Alfred MD CHEMISTRY ORDERABLES Performing Organization Address City/[facility]/ZIP Co de Phone Number [facility] [place] [address] * T4, free (06/14/2024 1:03 AM EST) Pathologist [facility] Free T4 1.37 0.93 - 1.70 ng/dL 06/14/2024 1:46 AM EST [facility] Blood VENOUS BLOOD SPECIMEN / Unknown Venipuncture / Unknown 06/14/2024 1:03 AM EST 06/14/2024 1:08 AM EST Mariola Alfred MD CHEMISTRY ORDERABLES Performing Organization Address City/[facility]/ZIP Co de Phone Number [facility] [place] [address] * Zonisamide level (06/14/2024 1:03 AM EST) [facility] Zonisamide Lvl November 17 10 - 40 mcg/mL 06/16/2024 9:22 PM EST [facility] [place] Comment: ADDITIONAL INFORMATION This test was developed and its performance characteristics determined by [facility] in a manner consistent with CLIA requirements. This test has not been cleared or approved by the U.S. Food and Drug Administration. Blood VENOUS BLOOD SPECIMEN / Unknown Venipuncture / Unknown 06/14/2024 1:03 AM EST 06/14/2024 1:08 AM EST Narrative REF [facility] [place] - 06/16/2024 9:22 PM EST Test Performed by: [facility] [address] [place] [address] Case Manager: Xavier Velásquez Ph.D.; CLIA# [id number] Mariola Alfred MD LAB SEND OUT ORDERAB LES REF [facility] [place] [id number] [place] [address], [facility] documented in this encounter Visit Diagnoses [...] restart at 50% of previous rate. Call house painter if goal not achieved at maximum rate. [...] Vomiting documented in this encounter Care Teams Table Machine Operator Relationship Specialty Start Date End Date Jimbo [place] [address] PCP - General Internal Medicine 06/18/24 documented as of this encounter
--- OUTSIDE RECORDS SUMMARY | 2024-08-03 14:01 | XMS_ITS | Encounter Summary ---
Author [place] [address] Care Team Providers Care Dental Technician Metal Name Role Phone Ren Vaz MD Primary Care Provider [phone] Reason for Visit * Auth/Cert (Routine) Specialty Diagnoses / Procedures Referred By Duyen bui Referred To Contact Diagnoses Hyponatremia hyponatremia Procedures ER Mariola Crisostomo MD [facility] [place] [address] [facility] Referral ID Status Reason Start Date Expiration Date Visits Re quested Visits Authorized [id number] 1 1 Encounter Details Date Type Department Care Team (Late st Contact Info) Description 2024 2:56 [place] [address] Akin Mcneill MD [facility] [place] [address] Anesthesia Record Procedure Summary Procedure Name Responsible [...] drink = 0.6 oz pur e alcohol) [facility] Utilities Answer Date Recorded In the past 12 months has [employer], gas, oil, or water [employer] threatened to shut off services in your [...] any time in the past 12 m [facility], were you homeless or [...] Procedure Summary Date: 06/15/24 Room / Location: [facility] ADULT RADIOLOG[facility] / [facility] Anesthesia Start: 1456 Anesthesia Stop: 1626 Procedure: [...] All Anesthesia Providers: Anesthesiologist: Akin Mcneill MD CHEMICAL SALES REPRESENTATIVE: Real Adams CRNA Vitals Value Taken Time [...] Surgical History: Procedure Laterality Date PRO OPEN AUTOMATION SALES MANAGER FIX ACETABULAR FX Left 09/04/2017 @OPEN TREATMENT, ACETABULAR FX (WRVU 25.41) performed by Amy Lance MD at [facility] MAIN OR Social History Tobacco Use Smoking [...] Adequate IV access Akin Mcneill MD PhD #[id number] Region - Other Informed Consent: Anesthetic plan and risks discussed with patient. Plan discussed with CHEMICAL SALES REPRESENTATIVE. Anesthesia Screening documented in this encounter Plan [...] EST documented in this encounter Care Teams Dental Technician Metal Relationship Specialty Start Date End Date Ren Vaz MD PCP - General Family Medicine 06/02/20 06/17/24 documented as of this encounter
--- OUTSIDE RECORDS SUMMARY | 2024-08-03 14:01 | XMS_ITS | Encounter Summary ---
Author Organization [facility] Address [facility] [place] [address] Care Team Providers Care Pharmaceutical Plant Operator Name Role Phone Jimbo More Primary Care Provider + Reason for Visit * Reason Onset Date Comments Appointment 06/16/2024 Encounter Details Date Type Department Care Team (Late st Contact Info) Description 06/16/2024 [place] [phone] Lauren Ruby MD [facility] [place] [address] Appointment Social History Tobacco Use Types Packs/Day Years Used Date Smoking Tobacco: Never Smokeless Tobacco: Never Alcohol Use Standard Drinks/Week Comments No 0 (1 standard drink = 0.6 oz pur e alcohol) [facility] Utilities Answer Date Recorded In the past 12 months has e [employer], gas, oil, or water [employer] threatened to shut off services in your [...] any time in the [facility] or living [...] paperwork. Lauren Ruby MD [facility] [place], Please help me schedule a follow [...] on filedocumented in this encounter Care Teams Pharmaceutical Plant Operator Relationship Specialty Start Date End Date Jimbo More PA Kerry VILLATORO [facility] [place] [address] PCP - General Internal Medicine 06/18/24 documented as of this encounter
--- OUTSIDE RECORDS SUMMARY | 2024-08-03 14:02 | XMS_ITS | Encounter Summary ---
[place] [address] Care Team Providers Care Rhinestone Setter Name Role Phone Lc Venegas Primary Care Provider [phone] Encounter Details Date Type Department Care Team (Late st Contact Info) Description 06/11/2018 Telephone [place] [phone] Mariola Gipson Social History Tobacco Use Types [...] on filedocumented in this encounter Care Teams Rhinestone Setter Relationship Specialty Start Date End Date Lc Venegas PA [address] [place] [address] PCP - General General Internal Medicine 09/03/17 documented as of this encounter
--- OUTSIDE RECORDS SUMMARY | 2024-08-03 14:02 | XMS_ITS | Encounter Summary ---
[place] [address] Care Team Providers Care Chrome Polisher Name Role Phone Lc Venegas Primary Care Provider [phone] Encounter Details Date Type Department Care Team (Latest Contact Info) Description 07/15/2018 12:40 PM EST Laboratory Appointment Lab [address] [place] [address] Hypopituitarism Social History Tobacco Use Types Packs/Day [...] 25 OH 32 30 - 100 ng/mL [facility] Comment: Deficient <10 ng/mL Insufficient 10 to 29 ng/mL Sufficient 30 to 100 ng/mL Potential Intoxication >100 ng/mL According to the US National Osteoporosis Foundation, Vitamin D concentrations >30 ng/mL are sufficient to protect bone health. ??The National Kidney Foundation has similarly stated that patients with Vitamin D concentrations <30ng/mL should be considered to be insufficient or deficient. http://Yassets/nkf-guidelines http://Yassets/nejm-VitD The IDS iSYS Vitamin D Immunoassay detects both 25-OH Vitamin D2 and 25-OH Vitamin D3, but only a total Vitamin D concentration is reported. Blood specimen (specimen) 07/15/2018 12:49 PM EST 07/16/2018 7:49 AM EST Narrative Resulting Agency Comment Spec In Lab Christopher Hess MD CHEMISTRY ORDERABLES Performing Organization Address City/State/[facility] Co de Phone Number [facility] [place] [phone] * (ABNORMAL) Basic Metabolic Panel (non-fasting) (07/15/2018 12:49 PM EST) Glucose 105 65 - 199 mg/dL [facility] Comment:Diabetes: >=200 mg/d L plus symptoms Blood Urea Nitrogen 16 10 - 20 mg/dL [facility] Creatinine 0.83 0.80 - 1.50 mg/dL [facility] Sodium 138 135 - 145 mmol/L [facility] Potassium 3.9 3.5 - 5.0 mmol/L [facility] Comment: Please note: ??Patients with WBC >100,000 may have falsely elevated Potassium levels. ??For accurate Potassium quantification in these patients send serum separator tube (gold top) for subsequent determinations. ??Contact the Clinical Chemistry Laboratory if there are any questions. Chloride 104 98 - 107 mmol/L [facility] Carbon Dioxide 19(L) 22 - 31 mmol/L [facility] Anion Gap 15 5 - 15 mmol/L [facility] Calcium 9.2 8.5 - 10.5 mg/dL [facility] Est Glomerular Filtration Rate 120 >=60 mL/min/1. 73 m?? [facility] Comment: The eGFR was calculated using the CKD-EPI equation. As with all creatinine based estimates of kidney function, eGFR values calculated with the CKD-EPI equation are not accurate in patients with acute kidney failure, extremes of body mass or the acutely ill. http://Yassets/[facility] ALTUSnkf eGFR 139 >=60 mL/min/1. 73 m?? [facility] Comment: The eGFR was calculated using the CKD-EPI equation. As with all creatinine based estimates of kidney function, eGFR values calculated with the CKD-EPI equation are not accurate in patients with acute kidney failure, extremes of body mass or the acutely ill. http://Yassets/DHMCnkf Blood specimen (specimen) 07/15/2018 12:49 PM EST 07/15/2018 12:55 PM EST Narrative Resulting Agency Comment Spec In Lab Christopher Hess MD CHEMISTRY ORDERABLES [facility] [place] [address] * T4, free (07/15/2018 12:49 PM EST) Free T4 1.24 0.93 - 1.70 ng/dL [facility] Blood specimen (specimen) 07/15/2018 12:49 PM EST 07/15/2018 12:55 PM EST Narrative Resulting Agency Comment Spec In Lab Christopher Hess MD CHEMISTRY ORDERABLES Performing Organization Address City/[facility]/ZIP Co de Phone Number [facility] [place] [address] documented in this encounter Visit Diagnoses Diagnosis Hypopituitarism Panhypopituitarism documented in this encounter Care Teams Chrome Polisher Relationship Specialty Start Date End Date Lc Venegas PA [address] [place] [address] PCP - General General Internal Medicine 09/03/17 documented as of this encounter
--- OUTSIDE RECORDS SUMMARY | 2024-08-03 14:02 | XMS_ITS | Encounter Summary ---
Author Organization [facility] Address [facility] [place] [address] Care Team Providers Care Landing Scaler Name Role Phone Ren Vaz MD Primary Care Provider [phone] Reason for Referral * Consultation (Routine) - Closed Specialty Diagnoses / Procedures Referred By Duyen bui Referred To Contact Maxillofacial Surgery Diagnoses Extraction of tooth needed Marques Hu DMD [address] [place] [address] Joe Nguyen PA [facility] [place] [address] Referral ID Status Reason Start Date Expiration Date V isits Requested Visits Authorized [id number] Closed Consult, Test & Treat 08/17/2021 08/17/2022 1 1 Encounter Details Date Type Department Care Team (Latest Contact Info) Description 08/17/2021 Transcribe Orders [place] [address] Gabriela Sandra Extraction of tooth needed Social [...] needed documented in this encounter Care Teams Landing Scaler Relationship Specialty Start Date End Date Ren Vaz MD PCP - General Family Medicine 06/02/20 06/17/24 documented as of this encounter
--- OUTSIDE RECORDS SUMMARY | 2024-08-03 14:02 | XMS_ITS | Encounter Summary ---
Author Organization [facility] Address [facility] [place] [address] Care Team Providers Care Clerk General Name Role Phone Chadjonathan Lc YEE Primary Care Provider [phone] Encounter Details Date Type Department Care Team (Late st Contact Info) Description 03/21/2019 2:40 PM EDT Ancillary Procedure Radiology Library at [facility], [place] [address] Pedro Colon MD [facility] [place] [address] Social History Tobacco Use Types Packs/Day Years [...] Head (03/21/2019 2:37 PM EDT) Narrative [facility] - 03/21/2019 2:37 PM EDT This exam is auto-finalizing. It's purpose is for storage only. Pedro Colon MD IMG FILM LIBRARY O RDERABLES [place], [place] documented in this encounter Visit Diagnoses Not on filedocumented in this encounter Care Teams Clerk General Relationship Specialty Start Date End Date Lc Venegas PA [address] [place] [address] PCP - General General Internal Medicine 09/03/17 documented as of this encounter
--- OUTSIDE RECORDS SUMMARY | 2024-08-03 14:02 | XMS_ITS | Encounter Summary ---
[place] [address] Care Team Providers Care Offset Second Press Operator Name Role Phone Ren Vaz MD Primary Care Provider [phone] Encounter Details Date Type Department Care Team (Late st Contact Info) Description 08/16/2021 Transcribe Orders [place] [address] Gabriela Sandra Social History Tobacco Use Types [...] filedocumented in this encounter Care Teams Offset Second Press Operator Relationship Specialty Start Date End Date Ren Vaz MD PCP - General Family Medicine 06/02/20 06/17/24 documented as of this encounter
--- OUTSIDE RECORDS SUMMARY | 2024-08-03 14:02 | XMS_ITS | Encounter Summary ---
Author Organization [facility] Address [facility] [place] [address] Care Team Providers Care Bodybuilder Name Role Phone Corin Skinner MD Primary Care Provider Encounter Details Date Type Department Care Team (Latest Contact Info) Description 09/02/2017 12:15 AM EST - 09/02/2017 12:19 AM EST Hospital Encounter Radiology Library at [facility] [place] [address] Neo Gar MD Discharge Disposition: Home Social [...] MD IMG FILM LIBRARY OR DERABLES [place], [place] documented in this encounter Visit Diagnoses Not on filedocumented in this encounter Care Teams Bodybuilder Relationship Specialty Start Date End Date Corin Skinner MD PCP - General 05/29/10 09/02/17 documented as of this encounter
--- OUTSIDE RECORDS SUMMARY | 2024-08-03 14:02 | XMS_ITS | Encounter Summary ---
[place] [address] Care Team Providers Care Food Service Supervisor Name Role Phone Lc Venegas Primary Care Provider [phone] Encounter Details Date Type Department Care Team (Late st Contact Info) Description 09/11/2018 Tele[place] [phone] Thuy Chu RN Social History Tobacco Use [...] Msg from Jessika Woodall NP at [facility], left msg that pt is doing well, possible aspiration pneumonia. Would like call back on how to proceed with steroid dosing and taper. [phone] and have hospitalist paged. documented in this encounter Plan of Treatment Not on file documented as of this encounter Visit Diagnoses Not on filedocumented in this encounter Care Teams Food Service Supervisor Relationship Specialty Start Date End Date Lc Venegas PA [address] [place] [address] PCP - General General Internal Medicine 09/03/17 documented as of this encounter
--- OUTSIDE RECORDS SUMMARY | 2024-08-03 14:02 | XMS_ITS | Encounter Summary ---
Author Organization [facility] Address [facility] [place] [address] Care Team Providers Care Director Of Event Marketing Name Role Phone Corin Skinner MD Primary Care Provider [phone] Encounter Details Date Type Department Care Team (Latest Contact Info) Description 09/02/2017 12:20 AM EST - 09/02/2017 9:22 PM EST Hospital Encounter Radiology Library at [facility] [place] [address] Neo Gar MD Discharge Disposition: Home Social [...] MD IMG FILM LIBRARY OR DERABLES [place], [place] documented in this encounter Visit Diagnoses Not on filedocumented in this encounter Care Teams Director Of Event Marketing Relationship Specialty Start Date End Date Corin Skinner MD PCP - General 05/29/10 09/02/17 documented as of this encounter
--- OUTSIDE RECORDS SUMMARY | 2024-08-03 14:02 | XMS_ITS | Encounter Summary ---
Author Organization [facility] [place] [address] Care Team Providers Care Consultant Teacher Name Role Phone CinthyaeseLc Primary Care Provider [phone] Reason for Visit * Auth/Cert Specialty Diagnoses / Procedures Referred By Duyen t Referred To Contact Diagnoses Acetabular fracture Left acetabulum fracture Procedures @OPEN TREATMENT, ACETABULAR FX (WRVU 25.41) Referral ID Status Reason Start Date Expiration Date Visits Re quested Visits Authorized [id number] 1 1 Encounter Details Date Type Department Care Team (Late st Contact Info) Description 10/20/2017 11:43 [place] [address] Asia Mota MD [facility] [place] [address] Marvin Vasquez CRNA Anesthesia Record Procedure Summary [...] 0939; metacarpal vein (top of hand), left; [id number] catheter system; 20 gauge; distraction, intradermal injection, [...] Mota MD - 10/21/2017 7:39 AM EDT [facility] Department of Anesthesiology Post-procedure Note Patient: Miguel Angel Burgos Procedure Summary Date Anesthesia Start Anesthesia Stop Room / Location 10/20/17 1143 1203 [facility] ADULT RADIOLOGY / [facility] [place] Procedure Diagnosis Surgeon Responsible Provider CT (N/A ) (Broken tooth) RESOURCE, ANESTHESIA-Asia Santiago MD All Anesthesia Providers: Anesthesiologist: Asia Mota MD LAND DEGRADATION ANALYST: Echo Lema CRNA Most Recent Vitals: 10/20/17 [...] History: Procedure Laterality Date ??? PRO OPEN REPAIRER HELPER FIX ACETABULAR FX Left 09/04/2017 @OPEN TREATMENT, ACETABULAR FX (WRVU 25.41) performed by Amy Lance MD at [facility] MAIN OR Social History Substance Use Topics [...] discussed with legal guardian. Plan discussed with LAND DEGRADATION ANALYST. PAT Staff Note documented in this encounter [...] /hr documented in this encounter Care Teams Consultant Teacher Relationship Specialty Start Date End Date Lc Venegas PA [address] [place] [address] PCP - General General Internal Medicine 09/03/17 documented as of this encounter
--- OUTSIDE RECORDS SUMMARY | 2024-08-03 14:02 | XMS_ITS | Encounter Summary ---
Author Organization [facility] [place] [address] Care Team Providers Care Furnace Operator [employer] Name Role Phone Chadjonathan Lc YEE Primary Care Provider [phone] Encounter Details Date Type Department Care Team (Late st Contact Info) Description 03/22/2019 [place] [phone] Heidi Yi MD Social History Tobacco Use [...] 03/22/2019 10:05 AM EDT Patient seen at [facility] for lethargy, workup negative so far [...] attending Dr. Morris. Heidi Yi MD PGY-4 [facility] Endocrinology Fellow Pager #[phone] documented in this encounter Plan of Treatment Not on file documented as of this encounter Visit Diagnoses Not on filedocumented in this encounter Care Teams Furnace Operator [employer] Relationship Specialty Start Date End Date Lc Venegas PA [address] [place] [address] PCP - General General Internal Medicine 09/03/17 documented as of this encounter
--- OUTSIDE RECORDS SUMMARY | 2024-08-03 14:02 | XMS_ITS | Encounter Summary ---
Author Organization [facility] Address [facility] [place] [address] Care Team Providers Care Custom Shoemaker Name Role Phone Chadjonathan Lc YEE Primary Care Provider [phone] Encounter Details Date Type Department Care Team (Late st Contact Info) Description 09/09/2018 [place] [phone] Thuy Chu RN Social History Tobacco Use [...] - 09/09/2018 11:06 AM EST [place] [facility] [place] back for instruction because pt is really sick today. R/c and lm for Lala to call back. Rcvd call back from Lala. Pt vomited this AM, not peeing consistently, lips blue, inaccurate temp readings (widely variable). She is taking pt to [facility] ED in [facility] (this call taking place at 11:14) and Lala would like Dr Thomson to call the ED there to consult and advise. Endocrinology Telephone Note: Called [facility] ED MD Spoke with MD there, warned them about his adrenal insufficiency and advised to stress dose if there is any concern whatsoever for hypOtension. If sodium derangements are present, will need to be admitted possibly for DDAVP adjustments. Provided my pager #. Mariola Thomson MD PGY-4 [facility] Endocrinology Fellow Pager #[phone] documented in this encounter Plan of Treatment Not on file documented as of this encounter Visit Diagnoses Not on filedocumented in this encounter Care Teams Custom Shoemaker Relationship Specialty Start Date End Date Lc Venegas PA [address] [place] [address] PCP - General General Internal Medicine 09/03/17 documented as of this encounter
--- OUTSIDE RECORDS SUMMARY | 2024-08-03 14:02 | XMS_ITS | Encounter Summary ---
Author Organization [facility] Address [facility] [place] [address] Care Team Providers Care V Block Saw Operator Name Role Phone Lc Venegas Primary Care Provider [phone] Encounter Details Date Type Department Care Team (Late st Contact Info) Description 09/11/2018 Telephone [place] [address] Mariola Thomson MD [facility] [place] [address] Social History Tobacco Use Types Packs/Day Years [...] Note: Msg from Jessika Woodall NP at [facility], left msg that pt is doing well, possible aspiration pneumonia. Would like call back on how to proceed with steroid dosing and taper. [phone] and have hospitalist paged. Spoke with hospitalist who reported that pt was d/c Tripled AM dose, doubled afternoon dose for first day. 60mg -->40mg 2 days in the AM, 15mg in the afternoon 2 days 20mg 10mg was not febrile at d/c, back to baseline off acetaminophen Suspect aspiration pna Mariola Thomson MD PGY-4 [facility] Endocrinology Fellow Pager #[phone] documented in this encounter Plan of Treatment Not on file documented as of this encounter Visit Diagnoses Not on filedocumented in this encounter Care Teams V Block Saw Operator Relationship Specialty Start Date End Date Lc Venegas PA [address] [place] [address] PCP - General General Internal Medicine 09/03/17 documented as of this encounter
--- OUTSIDE RECORDS SUMMARY | 2024-08-03 14:02 | XMS_ITS | Encounter Summary ---
[place] [address] Care Team Providers Care Working Second Hand Name Role Phone Ren Vaz MD Primary Care Provider [phone] Reason for Visit * Auth/Cert (Routine) Specialty Diagnoses / Procedures Referred By Duyen bui Referred To Contact Diagnoses Hyponatremia hyponatremia Procedures ER Mariola Crisostomo MD [facility] [place] [address] [facility] Referral ID Status Reason Start Date Expiration Date Visits Re quested Visits Authorized [id number] 1 1 Encounter Details Date Type Department Care Team (Late st Contact Info) Description 2024 3:10 PM EST - 2024 4:30 [place] [id number] RESOURCE, ANESTHESIA-OKEMAH None MRI WITH ANESTHESIA (WRVU *) Social History Tobacco Use Types Packs/Day Years Used Date Smoking Tobacco: Never Smokeless Tobacco: Never Alcohol Use Standard Drinks/Week Comments No 0 (1 standard drink = 0.6 oz pur e alcohol) [facility] Utilities Answer Date Recorded In the past [...] any time in the past 12 m [facility], were you homeless or living in a [...] needed. Per discussion with Madeleine from the long-term where he lives 06/17. She notes his [...] [facility] following witnessed tonic-clonic seizure at halfway, found to have sodium of 122. On [...] Seizures: 2 min tonic-clonic seizure witnessed at long-term, 30 sec seziure at [facility] [...] 97 % No results for input(s): PHART, YKK2JGT, PO2ART, UWI9XQU in the last 168 hours. I/O: Date 06/21/24 0700 - 06/22/24 0659 Shift [id number] [id number] 8820-9458 24 Hour Total INTAKE P.O. 354 354 [...] Procedure Component Value Units Date/Time Blood culture [[id number]] (Abnormal) Collected: 06/18/24 190 Lab Status: Preliminary [...] a previously preliminary verified report. Blood culture [[id number]] Collected: 06/18/241899 Lab Status: Preliminary result Specimen: [...] Center 07/20/2024 1:30 PM Eron Barriga MD [facility] [id number] * Attachments The following attachments cannot be sent through Care Everywhere. * Hyponatremia (Swazi) documented in this encounter Medications at Time [...] spent >30 minutes (Day of Discharge Code 64237) involved in the final examination of the patient, discussion of the hospital stay, instructions for continuing care to all relevant caregivers, and preparation of discharge records, prescriptions and referral forms. Plans Discharge to long-term Follow-up scheduled with PCP and neurosurge Please [...] appropriate/able. Sunitha Sanderson PT, DPT, NCS Pager: [phone] Physical Therapy Inpatient Rehabilitation Department * Martinez [...] 168 hours. No results for input(s): PHART, BRA0PZT, PO2ART, FDD8TYG in the last 168 hours. Microbiology: None [...] needed. Per discussion with Madeleine from the long-term where he lives 06/17. She notes his [...] Code Status: FULL - Dispo: Back to long-term when Martinez Kain Reynolds MD Hospital medicine [...] 168 hours. No results for input(s): PHART, UXA5UVF, PO2ART, FMW1NRZ in the last 168 hours. Microbiology: None [...] needed. Per discussion with Madeleine from the long-term where he lives 06/17. She notes his [...] Code Status: FULL - Dispo: Back to long-term when MR Martinez Reynolds MD [facility] medicine Service: 2900 06/19/2024 * Shola Morris MD - 06/19/2024 10:15 AM EST Images from the original note were not included. Endocrinology Follow up Note Name: Abram Burgos Date: 06/19/24 Room: [address] [place] [address] Reason for Consult: panhypopituitarism HPI Abram Burgos [...] access to additional DDAVP dosing at his long-term after speaking with Jennifer from the long-term. Possibility of him having access to additional water/fluid intake over the last few weeks. Bettina said that this is possible given there is often live in caregiver turnover and not everyone is up to date on what is recommended. He is on a 3.5 L restriction per day at the long-term. Patient was continued on home dose of [...] - will need follow up with his Chemical Compounder Helper, Dr. Zaidi or Dr. Day Littlejohn at discharge Endocrinology will sign off at this time but are available for any questions or concerns during hisremaining hospital stay. Thank you for allowing us to participate in the care of this patient. Discussed with Dr. Morris. Crista Gill MD. PGY4 [facility] Endocrinology I have seen the patient and [...] take POat this time Shola Morris MD Senior Trial Attorneybusiness analysis specialist Endocrinology Section [facility] * Doris Judd MD - 06/19/2024 [...] glean yes and no Language: fluent in norwegian and with word finding difficulty Mood: awesome [...] seems that this struggle is also a medical van driver of agitation, and one of the aspects that makes it hard for him to be here in the hospital. Meeting his physical comfort needs such as pain physical discomfort such as itching will also be important. 06/18/2024-Abram has been agitated overnight and has been un directable at times. Per collateral from his long-term, this is a baseline that has been going on for many months. On learning of his long-term regimen, not reflected in surescripts, we will [...] - start 600mg BID, titrate to MDD 1720-6603 in divided doses - monitor for increased respiratory secretions -discontinue depakote Patient on IEA Status? IEA: NO, patient is not an on IEA. Awaiting voluntary psychiatric placement but safety concerns exist if patient decides to leave and will require urgent psychiatric assessmentprior to discharge or leaving AMA. Recommendations were communicated to primary count team member Dr. Johnson. H Samson Judd MD 06/19/2024 [...] Minimal/Low [] Low [] Minimal/Low [] Low 98548 [] Moderate [] Moderate [] Moderate [] Moderate 21504 [] High [] High [] High [] High 27823 Final Coding Determination: Moderate * Pamela Johnson [...] 168 hours. No results for input(s): PHART, GQC0RJX, PO2ART, REI9ADD in the last 168 hours. Microbiology: None [...] needed. Per discussion with Madeleine from the long-term where he lives 06/17. She notes his [...] Code Status: FULL - Dispo: Back to long-term when Pamela Emerald DO [facility] medicine Service: 2900 06/18/2024 * Jaja [...] not medically ready but will return to long-term when MR. [facility] [address] [place] [address] [place], [place] [id number] Spoke with Jennifer Woods RN. Updated not anticipated discharge until next week. Will submit referralto [facility] to update facility with clinicals. Confirmed [facility] provides transport. * Sunitha Sanderson PT - 06/18/2024 10:49 AM EST Physical Therapy Contact Note 06/18/24 7585 Evaluation & Treatment Document Type contact Total Minutes, Physical Therapy 0 Comment, Session Not Performed Checked in with nursing, pt awaiting stat HCT for somnolence. PT will defer and follow up as appropriate/able. Sunitha Sanderson PT, DPT, NCS Pager: [phone] Physical Therapy Inpatient Rehabilitation Department * Zoë [...] mg at 22:55. His medications from his long-term were shared by their staff, with his home medicationregimen being 200 XL seroquel nightly and 100 mg BID with 100 mg PRN daily and hetlioz 20 mg qHS and melatonin nightly. Per Dr. Benítez in conversation with Madeleine from his long-term, Abram goes from 0-100 very quickly and will throw things and become agitated in his home setting, and that this has been going on for many months now. On interview this morning: Abram is lying in bed under the covers having his vitals checked. He denies pain, thoughts of hurting himself,f and denies needing anything at this time. His PRODUCT MARKETING INTERN at bedside shares that he has been [...] glean yes and no Language: fluent in norwegian and with word finding difficulty Mood: no [...] seems that this struggle is also a medical van driver of agitation, and one of the aspects that makes it hard for him to be here in the hospital. Meeting his physical comfort needs such as pain physical discomfort such as itching will also be important. 06/18/2024-Abram has been agitated overnight and has been un directable at times. Per collateral from his long-term, this is a baseline that has been going on for many months. On learning of his long-term regimen, not reflected in surescripts, we will [...] leaving AMA. Recommendations were communicated to primary count team member Dr. Johnson. Jaja Chin MD 06/18/2024 Coding [...] Minimal/Low [] Low [] Minimal/Low [] Low 45039 [] Moderate [] Moderate [] Moderate [] Moderate 69340 [] High [] High [] High [] High 03196 Final Coding Determination: Moderate Associated attestation - [...] it as a standing medication at his long-term). Given his mild increase in LFTs we [...] Brittny Hanna MD Department of Psychiatry Pager #[phone] * Pamela Johnson, DO - 06/17/2024 5:30 [...] 168 hours. No results for input(s): PHART, NMO5AAU, PO2ART, OBA6JKN in the last 168 hours. Microbiology: None [...] 3L daily. Spoke to Madeleine from the [facility] where he [facility]. She notes his baseline [...] Code Status: FULL - Dispo: Back to long-term when MR Pamela Corbin DO [facility] medicine Service: 2900 06/17/2024 * Roya Kingsley [...] Surgical History: Procedure Laterality Date PRO OPEN COIL ASSEMBLER FIX ACETABULAR FX Left 09/04/2017 @OPEN TREATMENT, ACETABULAR FX (WRVU 25.41) performed by Amy Lance MD at [facility] MAIN OR Social History: Patient lives in a long-term. Home Setup: accessible DME: none Baseline ADL/Mobility: [...] from EOB: min assist x 2 with CUSTOMER TECHNICAL SERVICES MANAGER Pt able to side step to L side ~4-5 steps with min assist x 2 using CUSTOMER TECHNICAL SERVICES MANAGER, cues provided for step initiation and sequencing Stand to sit x 2: min assist x 2 with CUSTOMER TECHNICAL SERVICES MANAGER Sit to supine: mod assist x 2 [...] minimal side steps to L side with CUSTOMER TECHNICAL SERVICES MANAGER. Unsure of pt's most recent functional status but anticipate pt will be able to return to his long-term pending level of assistance they can provide. Pt will benefitfrom ongoing therapeutic interventions to achieve pt's and therapy goals. Anticipated Discharge Disposition (OT): other (see comments) (return to long-term) Equipment Recommendations: Equipment Needs Upon Discharge (OT): [...] Minutes, Occupational Therapy: 28 (09:42-10:10 SCx2) Pager: [phone] TERRELL Isabel/Ramone Occupational Therapy Rehabilitation Department * [...] EEG CONTINUOUS MONITORING INPATIENT 2024 PRO OPEN COIL ASSEMBLER FIX ACETABULAR FX Left 09/04/2017 @OPEN TREATMENT, ACETABULAR FX (WRVU 25.41) performed by Amy Lance MD at [facility] MAIN OR Social History: Home setup: Pt resides in an accessible long-term in [facility] Baseline Mobility/Prior level of function: [...] to swing bed rehabilitation vs return to long-term when medically stable, pending functional progress while in the hospital and level of care available at long-term. Pt will benefit from ongoing physical therapy to address the above impairments and facilitate return to PLOF. Discharge Recommendations: Based on the current findings, Anticipated Discharge Disposition (PT): swing bed rehabilitation facility, adult foster care/long-term when medically ready for hospital discharge. Plan: [...] (admitted for seizures; complex PMH; lives in long-term) Examination of body system impairments, functional limitations and behaviors, and/or participation restrictions. Addressing 1-2 elements Addressing 3 + elements Addressing 4 + elements X Clinical presentation: See assessment above. Stable/Uncomplicated Evolving/Fluctuating Symptoms Unstable/Unpredictable X Clinical decision making of moderate complexity based on pt's functional performance as outlined inthis evaluation. Time IN / OUT: 8339-3029 Total Minutes, Physical Therapy: 30 (eval). Ludivina Stover PT DPT 06/16/2024 Pager: [phone] Physical Therapy Inpatient Rehabilitation Department * Christopher [...] seizures in the setting of hyponatremia and CHOP SAW OPERATOR structural abnormalities. This most likely provoked by new hyponatremia rather than chronic structural brain disease. Our working theory is hyponatremia provoked by issues with fluid restriction at his long-term, and it is so far improving at [...] minimumof two midnights or is on the [facility] inpatient only procedure list (status C) due to: monitoring of fluid status given an inability to regulate fluid balance and the need for administration or restriction of fluids and breakthrough seizures * Lauren Ruby MD - 06/16/2024 6:54 AM EST [facility] PROGRESS NOTE ID: Abram Burgos 34 [...] admit with jazmín of 122 while at [facility] thus far corrected to 131). Therefore no acute neurosurgical intervention warranted. We will follow up with the patient and hisfamily/legal guardian outpatient to discuss management options. We are signing off for now, rest ofcare per primary, but remain available at pager [phone] should further questions/concerns arise. Plan: -No acute neurosurgical intervention warranted -We are signing off now, but will follow up outpatient with patient/family to discuss management options -Rest of care per primary including frequency of neuro checks For questions please call NSGY pager [phone] Lauren Ruby MD 06/16/2024 7:22 AM Clinical [...] with him tomorrow. Maxine Silverio, PT Pager [phone] * Christopher Stanley MD - 2024 8:13 [...] seizures in the setting of hyponatremia and CHOP SAW OPERATOR structural abnormalities. This most likely provoked by new hyponatremia rather than chronic structural brain disease, but as yet uncertain. Our working theory is hyponatremia provoked by issues with fluid restriction at his long-term, and it is so far improving at [...] O2 Device RA Maxine Silverio, PT Pager [phone] * Wilder Davis - 06/14/2024 11:19 AM [...] adjusted based on our knowledge. Was at long-term when he had ~2 minute tonic clonic seizure. Presented to [facility] where he was found to be hyponatremic. Given hypertonic saline and ativan and transferred to [facility]. Physical Exam Last value Range last 24 [...] seizures in the setting of hyponatremia and CHOP SAW OPERATOR structural abnormalities. His hyponatremia is likely mixed: [...] minimumof two midnights or is on the [facility] inpatient only procedure list (status C) due to: monitoring of fluid status given an inability to regulate fluid balance and the need for administration or restriction of fluids and seizur * Marline Calderon, AERONAUTICS COMMISSION DIRECTOR - 06/14/2024 6:42 AM EST Critical Care Progress Note Abram Bugros : 1990 Admitted: 06/14/2024 12:57 AM Hospital day: 0 ICU day: ID: Abram Burgos is a 33 y.o. 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 He wastransferred to [facility] where sodium of 122 was treated with 50cc 3%NaCl and Neutra-Phos. No evidence of seizure since arrival. Neurology, neurosurgery, and endocrine teams were consulted. Hospital/ICU course has been significant for: #Hyponatremia #Seizure Activity (prior to arrival at [facility]) #possible enlarging lesion in R middle cranial fossa 24-hour events: -Transferred to [facility] -Na treated with 3% (once at OSH, [...] Line): -- No results for input(s): PHART, ZVI1QHP, PO2ART, VWH8JYS in the last 168 hours. Intake/Output Summary [...] clear culprit meds on his list.At his long-term he is maintained on a 3.5L fluid [...] Lizeth Calderon APRN June 14, 2024 Pager #[phone] Critical Care Green Team documented in this [...] with seizures. The patient was transferred from [facility] from a long-term ([facility]) for a seizure. He had [...] [facility] following witnessed tonic-clonic seizure at halfway, found to have sodium of 122. On [...] Seizures: 2 min tonic-clonic seizure witnessed at long-term, 30 sec seziure at [facility] [...] EEG CONTINUOUS MONITORING INPATIENT 2024 PRO OPEN COIL ASSEMBLER FIX ACETABULAR FX Left 09/04/2017 @OPEN TREATMENT, ACETABULAR FX (WRVU 25.41) performed by Amy Lance MD at [facility] MAIN OR Social History: Social History [...] file Social History Narrative Lives at the [facility], moved in 11/07/2014. [...] 06/14/2024 4:02 AM) Result Value WORKSTATION ID [id number] Narrative EXAMINATION: XR CHEST ONE VIEW CLINICAL [...] who have questions please contact the health senior caregiver that requested your imaging first. Electronically signed by: Beverley Valencia MD, [facility] ([phone]), at 06/14/2024 4:32 AM Request For 2nd Read CT Head (Exam End: 06/14/2024 9:46 AM) Result Value WORKSTATION ID [id number] Narrative EXAMINATION: REQUEST FOR 2ND READ CT [...] who have questions please contact the health senior caregiver that requested your imaging first. Brain wwo Contrast (Generic) (Exam End: 2024 4:20 PM) Result Value WORKSTATION ID [id number] Narrative EXAMINATION: MRI BRAIN WWO CONTRAST (GENERIC) [...] clip with its blades near the right BOX STAPLER. Impression Homogeneously enhancing 3.5 cm mass along [...] who have questions please contact the health senior caregiver that requested your imaging first. SSMENT and [...] Tim Yuen MD Internal Medicine PGY-2 Pager: [phone] 06/16/24 Associated attestation - Channing Ballesteros MD [...] home dosing Channing Ballesteros MD * Minerva mSall PA - 06/13/2024 11:12 PM EST Critical Care Admission Note Abram Burgos is a 33 y.o. male with a PMH significant for TBI, craniopharyngioma (resected 2004, c/b panhypopituitarism), Diabetes insipidus (on DDAVP at baseline), hypothyroidism, Adrenal insufficiency (hydrocortisone 20mg AM and 10mg PM), epilepsy, legally blind, who presents to the ICU on with seizures. HPI: Per report presented to [facility] from a long-term ([facility]) for seizure. He has been in his usual state of health although did have covid within the past month. He has been taking his medications as prescribed although due to behavioral troubles and problems sleeping some of his medications have been altered recently. This afternoon at his long-term he had a two minute whitnesses tonic [...] and a dose (unknown amount) of desmopressin. [facility] was contacted for transfer. Neuro critical care [...] Surgical History: Procedure Laterality Date PRO OPEN COIL ASSEMBLER FIX ACETABULAR FX Left 09/04/2017 @OPEN TREATMENT, ACETABULAR FX (WRVU 25.41) performed by Amy Lance MD at [facility] MAIN OR No family history on file. Social History: Lives in a long-term. Ventilator Settings: Room air. Physical Exam: General: [...] NAKIA Blair June 14, 2024 Critical Care [place] Team (pager [phone]) Dr. Alfred is the attending of record for this admission documented in this encounter Procedure Notes * Joey Moura MD - 06/18/2024 1:[address] [facility] Department of Neurology Inpatient Routine EEG [...] channel digitized electroencephalogram was performed in the [facility] Clinical Neurophysiology Laboratory. The 10/20 international system of electrode placement was used and bipolar and referential electrode montages were recorded. In addition to EEG the patient was monitored for EKGand lateral/vertical eye movements. Video was recorded during the session. MAID CLEANING COOKING'S REPORT: Performed by: Ingrid Sih Patient was not sleep deprived. Sleep was [...] agree with the report. Rosa Quezada MD [facility] Neurology * Camron Gee MD - 2024 5:19 PM ESTProcedure(s): EEG CONTINUOUS MONITORING INPATIENT [facility] Department of Neurology Inpatient Continuous Video EEG Tail Report Name of the Patient: Abram Burgos Date of : 1990 Patient Location: [facility] Date of Service: 2024 Referring [...] EKG. Video was recorded during the session. MAID CLEANING COOKING'S REPORT: Performed by: At the onset of [...] seen during this epoch. Rashard Navarrete MD GRINDING WHEEL OPERATOR Fellow, PGY-5 2024 EPILEPSY ATTENDING ADDENDUM - I reviewed the EEG with the GRINDING WHEEL OPERATOR/Epilepsy fellow, and I agree with the interpretation as documented. Camron Gee MD, PhD Professor of Neurology [facility] Epilepsy [place] Clinical Neurophysiology Laboratory [facility] * Rashard Navarrete MD - 06/14/2024 3:33 [...] Navarrete MD - 06/14/2024 3:[address] [facility] Department of Neurology Inpatient Continuous Video [...] EKG. Video was recorded during the session. MAID CLEANING COOKING'S REPORT: Performed by: At the onset of [...] seen during this epoch. Rashard Navarrete MD GRINDING WHEEL OPERATOR Fellow, PGY-5 06/14/2024 Associated attestation - Camron Gee MD - 2024 1:03 PM EST EPILEPSY ATTENDING ADDENDUM - I reviewed the EEG with the GRINDING WHEEL OPERATOR/Epilepsy fellow, and I agree with the interpretation as documented. Given the lack of evidence for underlying epileptic seizures from this recording of ~24 hours, we'd recommend considering discontinuing the CEEG study. We are available to discuss this matter with the Neurology consultation and inpatient bravo team. Camron Gee MD, PhD Professor of Neurology [facility] Epilepsy Center Clinical Neurophysiology Laboratory [facility] documented in this encounter Miscellaneous Notes * Plan of Care - Bell Amezcua RN - 06/21/2024 3:04 PM EST Abram Burgos discharged to custodial by care facility's vehicle with staff from long-term. All belongings sent with patient. ALLISON removed, [...] Patient is medically ready for discharge to [address] [place], [place] [address] . Superintendent Pier: Kemi Noriega at [facility] will be picking him up. I also spoke with Bettina Burogs Guardian to give her updates. Needs for Transition of Care: Plan for discharge is: Senior Care Facility / Swing Outpatient Agency/Support Group Needs: halfway Agency Referrals & Follow-up Care: Transportation: Superintendent Pier: Kemi Noriega at [facility] will be picking him up. I also spoke with Bettina Aubrey his Guardian to give her updates Wheelchair van/Ambulance? No Functional status prior to admission: Assistive Equipment and Assistive Person Home Environment: Others in the home: other (see comments) (Lives in a long-term.). Current LivingArrangements: long-term. Accessibility Concerns:Easy access to his surroundings. Fully [...] plan was formulated with input from patient, Superintendent Pier: Kemi Noriega at [facility] will be picking [...] better mood today, less agitation. Visitor from long-term. Downgraded to med surg. PLAN MOVING FORWARD: [...] been altered recently. This afternoon at his long-term he had a two minutewitnessed tonic clonic [...] nightly to twice daily dosing at his long-term, which she had not been on before. 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 Sister reports that he has had low sodium in the past, she believes in the 120s or lower, but has not triggered seizures in the past. Patient has previously been seen at [facility] in 2014. His deficits at that time included left hemiparesis, cortical blindness, urine incontinence, dysarthria and gait disorder. 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 [facility] to [facility] [facility] documentation, he had a spell at his long-term that was concerning for seizure one month prior to his visit. BG at the time was in the 40s and he was started on Keppra in addition to Zonegran. [facility] neurologist planned for discontinuation of [...] mg 10 mg Oral Daily before dinner Tmi Yuen MD 10 mg at 06/17/24 1724 [...] (WRVU *) performed by JERSEY, ANESTHESIA-GEORGIE at [facility] [place] PRO OPEN COIL ASSEMBLER FIX ACETABULAR FX Left 09/04/2017 @OPEN TREATMENT, ACETABULAR FX (WRVU 25.41) performed by Amy Lance MD at [facility] MAIN OR Allergies: Allergies Allergen Reactions [...] gaze No facial asymmetry Able to weakly blood collector BL hands 2/5, wiggles BL toes to [...] 06/14/2024 4:02 AM) Result Value WORKSTATION ID [id number] Impression Low lung volumes with crowding of bronchovascular markings without radiographically evident acute cardiopulmonary process. Thank you for letting us participate in the care of this patient. If you are a health care provider and have any questions regarding this report, please contact the number below. For patients who have questions please contact the health senior caregiver that requested your imaging first. Electronically signed by: Beverley Valencia MD, [facility] ([phone]), at 06/14/2024 4:32 AM Request For 2nd Read CT Head (Exam End: 06/14/2024 9:46 AM) Result Value WORKSTATION ID [id number] Impression Hypoattenuating, likely cystic mass appears to [...] who have questions please contact the health senior caregiver that requested your imaging first. Brain wwo Contrast (Generic) (Exam End: 2024 4:20 PM) Result Value WORKSTATION ID [id number] Impression Homogeneously enhancing 3.5 cm mass along [...] who have questions please contact the health senior caregiver that requested your imaging first. Assessment: Abram [...] Holland MD Neurology, PGY-3 Consult Neurology Service #[id number] 06/18/2024 Associated attestation - Colten Wilson MD [...] Qtc within normal limits. Staff member from long-term came to visit. Scheduled medications adjusted. PLAN [...] focal atrophy Arm flexion 5/5 b/l Hand blood collector 5/5 b/l Able to wiggle toes Reflexes: [...] Neurology to sign off Americo Flores, MS4 [facility] * Care Management - [...] Guardian Name: Bettina Burgos-sister Guardian Contact Information: [phone] Financial Decision Maker: Guardian Guardianship paperwork on file: 1 Guardian Name: see above Guardian Contact Information: see above Functional status prior to admission: Assistive Equipment and Assistive Person Home Environment: Others in the home: other (see comments) (Lives in a long-term.). Current LivingArrangements: long-term. Accessibility Concerns: Easy access to his surroundings. [...] Recommendation: swing bed rehabilitation facility, adult foster care/long-term with to be determined Last Occupational Therapy Recommendation: adult foster care/long-term (pending on progress) with to be determined Plan for discharge is: Senior Care Facility / Swing Transition Plan for After Rehab: [facility] Human Services Outpatient Agency/Support Group Needs: halfway Agency Choices: [facility] Agency Referrals: Current referrals placed to: N/A Transportation: Barriers to discharge: Global: Discharge planning Global Comment: Coordination of returning to long-term Items to Consider for Discharge: Pt's sister and guardian Bettina Burgos has given permission for the following people from his [facility] to receive updates: Lives in [facility]) -Kemi Noriega -halfway rn case mgr -Ladonna Tate -Jennifer Woods -halfway RN CM Interventions today: CM is notified [...] anticipated to go return to [facility] ([facility]) with possible VNA services on top what is already offered. The patient's sister and guardian Bettina Burgos as assisting with dispo coordination. CM will continue to monitor progress, follow for continuity of care, and assist with discharge planning while patient is inpatient status on current unit. Investigate address and contact information for [facility] ([facility]) and place referral so they have updated information to review to assist in dispo Review team recommendations and place referrals for VNA if medical status changes after treatments/interventions. Monitor and update referrals Anticipated Date of Discharge: 06/18/2024 Raudel Tate RN Case Product Manager Financial Services of Care Management * Consult Note - [...] been altered recently. This afternoon at his long-term he had a two minutewitnessed tonic clonic [...] nightly to twice daily dosing at his long-term, which she had not been on before. 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 Sister reports that he has had low sodium in the past, she believes in the 120s or lower, but has not triggered seizures in the past. Patient has previously been seen at [facility] in 2014. His deficits at that time included left hemiparesis, cortical blindness, urine incontinence, dysarthria and gait disorder. 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 According to [facility] documentation, he had a spell at his long-term that was concerning for seizure one month prior to his visit. BG at the time was in the 40s and he was started on Keppra in addition to Zonegran. [facility] neurologist planned for discontinuation of [...] EEG CONTINUOUS MONITORING INPATIENT 2024 PRO OPEN COIL ASSEMBLER FIX ACETABULAR FX Left 09/04/2017 @OPEN TREATMENT, ACETABULAR FX (WRVU 25.41) performed by Amy Lance MD at [facility] MAIN OR Allergies: Allergies Allergen Reactions [...] 06/14/2024 4:02 AM) Result Value WORKSTATION ID [id number] Impression Low lung volumes with crowding of bronchovascular markings without radiographically evident acute cardiopulmonary process. Thank you for letting us participate in the care of this patient. If you are a health care provider and have any questions regarding this report, please contact the number below. For patients who have questions please contact the health senior caregiver that requested your imaging first. Electronically signed by: Beverley Valencia MD, [facility] ([phone]), at 06/14/2024 4:32 AM Request For 2nd Read CT Head (Exam End: 06/14/2024 9:46 AM) Result Value WORKSTATION ID [id number] Impression Hypoattenuating, likely cystic mass appears to [...] who have questions please contact the health senior caregiver that requested your imaging first. Brain wwo Contrast (Generic) (Exam End: 2024 4:20 PM) Result Value WORKSTATION ID [id number] Impression Homogeneously enhancing 3.5 cm mass along [...] who have questions please contact the health senior caregiver that requested your imaging first. Assessment: Abram [...] Holland MD Neurology, PGY-3 Consult Neurology Service #[id number] 06/17/2024 ATTENDING NOTE: I reviewed the pertinent [...] tends to do much better at his long-term than the hospital environment as he is [...] EEG CONTINUOUS MONITORING INPATIENT 2024 PRO OPEN COIL ASSEMBLER FIX ACETABULAR FX Left 09/04/2017 @OPEN TREATMENT, ACETABULAR FX (WRVU 25.41) performed by Amy Lance MD at [facility] MAIN OR Allergies: Allergies Allergen Reactions [...] focal atrophy Arm flexion 5/5 b/l Hand blood collector 5/5 b/l Able to wiggle toes Reflexes: [...] to follow. Americo Flores, MS4 [facility] * Consult Note - Kellen Braxton MD [...] been altered recently. This afternoon at his long-term he had a two minutewitnessed tonic clonic [...] nightly to twice daily dosing at his long-term, which she had not been on before. 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 Sister reports that he has had low sodium in the past, she believes in the 120s or lower, but has not triggered seizures in the past. Patient has previously been seen at [facility] in 2014. His deficits at that time included left hemiparesis, cortical blindness, urine incontinence, dysarthria and gait disorder. 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 According to [facility] documentation, he had a spell at his long-term that was concerning for seizure one month prior to his visit. BG at the time was in the 40s and he was started on Keppra in addition to Zonegran. [facility] neurologist planned for discontinuation of [...] EEG CONTINUOUS MONITORING INPATIENT 2024 PRO OPEN COIL ASSEMBLER FIX ACETABULAR FX Left 09/04/2017 @OPEN TREATMENT, ACETABULAR FX (WRVU 25.41) performed by Amy Lance MD at [facility] MAIN OR Allergies: Allergies Allergen Reactions [...] 06/14/2024 4:02 AM) Result Value WORKSTATION ID [id number] Impression Low lung volumes with crowding of bronchovascular markings without radiographically evident acute cardiopulmonary process. Thank you for letting us participate in the care of this patient. If you are a health care provider and have any questions regarding this report, please contact the number below. For patients who have questions please contact the health senior caregiver that requested your imaging first. Electronically signed by: Beverley Valencia MD, [facility] ([phone]), at 06/14/2024 4:32 AM Request For 2nd Read CT Head (Exam End: 06/14/2024 9:46 AM) Result Value WORKSTATION ID [id number] Impression Hypoattenuating, likely cystic mass appears to [...] who have questions please contact the health senior caregiver that requested your imaging first. Brain wwo Contrast (Generic) (Exam End: 2024 4:20 PM) Result Value WORKSTATION ID [id number] Impression Homogeneously enhancing 3.5 cm mass along [...] who have questions please contact the health senior caregiver that requested your imaging first. Assessment: Abram [...] altered mental status prior to presentation is business services representative of ongoing seizures at home. This [...] once nightly to twice daily by his long-term. He may need titration of medicationsto promote [...] Admitted From: Transfer from another hospital Location: [facility] Reason for Hospitalization: Per sister, patient had seizure activity for the first time in 9 years.EMS called. Past medical History: No past medical history on file. Hospitalizations Within the Past 30 Days: no previous admission in last 30 days Current Decision-Making Capacity: Guardian Name(s): Bettina Burgos Contact Information: [phone] (cell) Proxy Activated: Yes Paperwork on file?: [...] home: other (see comments) (Lives in a long-term.). Current LivingArrangements: long-term. Accessibility Concerns:Easy access to his surroundings. Fully [...] In the past 12 months has the [employer], gas, oil, or water [employer] threatened to shut off services in your [...] at times) Home Address confirmed as: [address] [facility] [address] Attn: Mercedez Otero [facility] [address] Social & Family Supports: All names listed below confirmed with patient as current and correct Extended Emergency Contact Information Primary Emergency Contact: Bettina Burgos Address: [facility] [place] [address] [facility] Relation: Guardianship Secondary Emergency Contact: Lc Merlos [facility] Relation: Other Current Care Provided by: [facility] Services Provides Primary Care For: no one, unable/limited ability to care for self Caregiver if needed: other (see comments) (halfway) Quality of Family relationships: supportive, involved Community Resources being provided currently: long-term Behavioral Health History: Per chart review, Pt [...] N/A ; Prescription Coverage: Yes Preferred Pharmacy: [facility] Home Delivery - [facility] [address] [facility] [address] [facility] [address] [facility] [place], [place] - [address] [facility] [address] [facility] [address] [address] [facility] [address] Status: Patient is a : No Primary Care Provider confirmed: Ren Vaz MD [phone] Patient/Caregiver Goals of Treatment: Anticipating return to long-term when medically ready Potential Needs for Transition of Care: none Agency Referrals: [facility] [employer] Transportation: no concerns Transportation Anticipated: agency Concerns to be Addressed: other (see comments) (Needing transportation via [facility] at discharge) Assessment: Patient is admitted to service for Hyponatremia Pt is a 34 year dependent male, living in a long-term. Pt guardian is his sister, Bettina. Bettina is very involved and supportive. Guardianship paperwork is on file. Pt is cared for by his group homestaff while his finances remain in the care of his guardian. Reached out to [facility] to confirm transportation plans. The long-term will reach out with any information regarding this. Plan going forward: Pending hospital course Care Management team will continue to follow and assist with discharge planing and coordination of care as indicated. JAMSHID Ramirez Medicine SW Pager [phone] * Consult Note - Kellen Braxton MD [...] been altered recently. This afternoon at his long-term he had a two minutewitnessed tonic clonic [...] nightly to twice daily dosing at his long-term, which she had not been on before. 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 Sister reports that he has had low sodium in the past, she believes in the 120s or lower, but has not triggered seizures in the past. Patient has previously been seen at [facility] in 2014. His deficits at that time included left hemiparesis, cortical blindness, urine incontinence, dysarthria and gait disorder. 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 According to [facility] documentation, he had a spell at his long-term that was concerning for seizure one month prior to his visit. BG at the time was in the 40s and he was started on Keppra in addition to Zonegran. [facility] neurologist planned for discontinuation of [...] Surgical History: Procedure Laterality Date PRO OPEN COIL ASSEMBLER FIX ACETABULAR FX Left 09/04/2017 @OPEN TREATMENT, ACETABULAR FX (WRVU 25.41) performed by Amy Lance MD at [facility] MAIN OR Allergies: Allergies Allergen Reactions [...] 06/14/2024 4:02 AM) Result Value WORKSTATION ID [id number] Impression Low lung volumes with crowding of bronchovascular markings without radiographically evident acute cardiopulmonary process. Thank you for letting us participate in the care of this patient. If you are a health care provider and have any questions regarding this report, please contact the number below. For patients who have questions please contact the health senior caregiver that requested your imaging first. Electronically signed by: Beverley Valencia MD, [facility] ([phone]), at 06/14/2024 4:32 AM Request For 2nd Read CT Head (Exam End: 06/14/2024 9:46 AM) Result Value WORKSTATION ID [id number] Impression Hypoattenuating, likely cystic mass appears to [...] who have questions please contact the health senior caregiver that requested your imaging first. 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 Neurosurgery is consulted for a 3 cm hypodensity in the anterior right middle fossa. He lives at a long-term. This past weekend, he was in his normal state of health when he had a witnessed 2 minute seizure, reportedly with generalized stiffening. He was brought to [facility], where he was found to have Na of 121. He had a tongue laceration. In the ED there he had an additional witnessed seizure. He was transferred to the [facility] for a higher level of care [...] underwent tumor resection with Dr. Álvarez at [facility]. This was complicated by arterial [...] Surgical History: Procedure Laterality Date PRO OPEN COIL ASSEMBLER FIX ACETABULAR FX Left 09/04/2017 @OPEN TREATMENT, ACETABULAR FX (WRVU 25.41) performed by Amy Lance MD at [facility] MAIN OR MEDICATIONS: No current facility-administered [...] file Social History Narrative Lives at the [facility], moved in 11/07/2014. [...] neurosurgery attending. No future appointments. Neurosurgery Pager: [phone] Gonzalez Kirkpatrick MD Neurosurgery PGY-1 06/14/2024 6:44 [...] Surgical History: Procedure Laterality Date PRO OPEN COIL ASSEMBLER FIX ACETABULAR FX Left 09/04/2017 @OPEN TREATMENT, ACETABULAR FX (WRVU 25.41) performed by Amy Lance MD at [facility] MAIN OR Social History: Patient lives in a long-term. Home Setup: accessible DME: none Baseline ADL/Mobility: [...] x2 handhold Ambulation: CGA x2 handhold for [id number] transfer EOB<>commode Stand to sit: CGA Sit [...] be determined Anticipated Discharge Dispostion: adult foster care/long-term (pending on progress) Other Recommendations: Open shades [...] Discharge planning. Total Minutes, Occupational Therapy: 16 ([id number] (evaluation)) 2017 OT Evaluation Code Rationale: Diagnosis [...] and measurable assessment of functional outcome. Pager: [phone] Dinorah Navas OTR/L 06/14/2024 Occupational Therapy Rehabilitation [...] follows with Dr. Zaidi of Endocrinology at [facility]. Recently saw a covering provider, Day Littlejohn in March 2024. He currently resides in a long-term, [facility] where [...] Surgical History: Procedure Laterality Date PRO OPEN COIL ASSEMBLER FIX ACETABULAR FX Left 09/04/2017 @OPEN TREATMENT, ACETABULAR FX (WRVU 25.41) performed by Amy Lance MD at [facility] MAIN OR No family history on [...] file Social History Narrative Lives at the [facility], moved in 11/07/2014. [...] access to additional DDAVP dosing at his long-term. Pos sibility of him having access to additional water/fluid intake over the last few weeks. Patients sister and legal guardian said that this is possible given there is often live in caregiver turnover and not everyone is up [...] with Dr. Morris. Crista Gill MD. PGY4 [facility] Endocrinology Pager #[phone] I have seen the patient and reviewed [...] is effective and safe Shola Morris MD Senior Trial Attorneybusiness analysis specialist Endocrinology Section [facility] * Consult Note - Kellen Braxton [...] been altered recently. This afternoon at his long-term he had a two minutewitnessed tonic clonic [...] nightly to twice daily dosing at his long-term, which she had not been on before. 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 Sister reports that he has had low sodium in the past, she believes in the 120s or lower, but has not triggered seizures in the past. Patient has previously been seen at [facility] in 2014. His deficits at that time included left hemiparesis, cortical blindness, urine incontinence, dysarthria and gait disorder. 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 According to [facility] documentation, he had a spell at his long-term that was concerning for seizure one month prior to his visit. BG at the time was in the 40s and he was started on Keppra in addition to Zonegran. [facility] neurologist planned for discontinuation of [...] tablet 0.15 mg 0.15 mg Oral Nightly Minreva Small PA heparin (porcine) (5,000 units/1 mL) [...] Surgical History: Procedure Laterality Date PRO OPEN COIL ASSEMBLER FIX ACETABULAR FX Left 09/04/2017 @OPEN TREATMENT, ACETABULAR FX (WRVU 25.41) performed by Amy Lance MD at [facility] MAIN OR Allergies: Allergies Allergen Reactions [...] Flexor digitorum profundus Digit II-V flexion / chainstitch seat joiner 5 5 L2-3 Iliopsoas Hip flexion 5 [...] 06/14/2024 4:02 AM) Result Value WORKSTATION ID [id number] Impression Low lung volumes with crowding of bronchovascular markings without radiographically evident acute cardiopulmonary process. Thank you for letting us participate in the care of this patient. If you are a health care provider and have any questions regarding this report, please contact the number below. For patients who have questions please contact the health senior caregiver that requested your imaging first. Electronically signed by: Beverley Valencia MD, [facility] ([phone]), at 06/14/2024 4:32 AM Assessment: Abram Burgos [...] Holland MD Neurology, PGY-3 Consult Neurology Service #[id number] 06/14/2024 ATTENDING NOTE: I reviewed the pertinent [...] 2024 4:20 PM EST Unlisted Mri Procedure (14205) 2024 2:56 PM EST Please evaluate lesion [...] 06/14/2024 9:46 AM EST URINALYSIS BEAKER MICROSCOPIC ([facility]) SHEEBA 06/14/2024 8:06 AM EST _URINALYSIS WITH [...] Hepatic Function Panel (06/21/2024 12:50 AM EST) [facility] Albumin 4.0 3.2 - 5.2 g/dL 06/21/2024 1:30 AM EST [facility] Aspartate Aminotransferase 47(H) <=39 unit/L 06/21/2024 1:30 AM [facility] Alanine Aminotransferase 64(H) 0 - 55 unit/L 06/21/2024 1:30 AM [facility] Alkaline Phosphatase 141(H) 40 - 130 unit/L 06/21/2024 1:30 AM [facility] Bilirubin, Total <0.2 <=1.3 mg/dL 06/21/2024 1:30 AM [facility] Bilirubin, Direct <0.2 0.0 - 0.3 mg/dL 06/21/2024 1:30 AM [facility] Protein, Total 7.1 6.1 - 8.0 g/dL 06/21/2024 1:30 AM [facility] Blood VENOUS BLOOD SPECIMEN / Unknown Venipuncture / Unknown 06/21/2024 12:50 AM EST 06/21/2024 12:56 AM EST Martinez Reynolds MD CHEMISTRY ORDERABLES [facility] [place] [address] * (ABNORMAL) CBC (with Diff) (06/21/2024 12:50 AM EST) White Blood Cell 7.52 4.00 - 9.50 x10(3)/mc L 06/21/2024 1:09 AM [facility] Red Blood Cell 5.33 4.58 - 5.54 x10(6)/mc L 06/21/2024 1:09 AM [facility] Hemoglobin 12.9(L) 13.7 - 16.5 g/dL 06/21/2024 1:09 AM [facility] Hematocrit 39.9(L) 40.5 - 48.5 % 06/21/2024 1:09 AM [facility] Mean Cell Volume 74.9(L) 82.9 - 93.1 fL 06/21/2024 1:09 AM [facility] Mean Cell Hemoglobin 24.2(L) 27.5 - 32.1 pg 06/21/2024 1:09 AM [facility] Mean Cell Hemoglobin Concentration 32.3 32.0 - 35.7 g/dL 06/21/2024 1:09 AM [facility] Platelet 268 145 - 357 x10(3)/mc L 06/21/2024 1:09 AM [facility] Mean Platelet Volume 9.1 7.6 - 12.9 fL 06/21/2024 1:09 AM [facility] RDW Standard Deviation 39.8 36.0 - 45.0 fL 06/21/2024 1:09 AM [facility] RDW coefficient of variation 15.0(H) 11.4 - 13.8 % 06/21/2024 1:09 AM [facility] NRBC% auto 0.0 % 06/21/2024 1:09 AM [facility] NRBC Absolute <0.01 <0.01 x10(3)/mc L 06/21/2024 1:09 AM [facility] Neutrophil % 63.6 % 06/21/2024 1:09 AM [facility] Neutrophil Absolute (ANC) - Automated 4.78 1.70 - 6.10 x10(3)/mc L 06/21/2024 1:09 AM [facility] Lymph % 23.7 % 06/21/2024 1:09 AM [facility] Lymph Absolute 1.78 0.90 - 3.20 x10(3)/mc L 06/21/2024 1:09 AM [facility] Monocyte % 9.8 % 06/21/2024 1:09 AM [facility] Monocyte Absolute 0.74 0.30 - 0.90 x10(3)/mc L 06/21/2024 1:09 AM [facility] Eos % 2.0 % 06/21/2024 1:09 AM [facility] Eos Absolute 0.15 0.00 - 0.40 x10(3)/mc L 06/21/2024 1:09 AM EST [facility] Basophil % 0.4 % 06/21/2024 1:09 AM [facility] Baso Absolute <0.04 0.00 - 0.10 x10(3)/mc L 06/21/2024 1:09 AM [facility] Immature Gran % 0.5 % 1:09 AM [facility] Immature Gran Absolute 0.04 0.00 - 0.04 x10(3)/mc L 06/21/2024 1:09 AM [facility] Blood VENOUS BLOOD SPECIMEN / Unknown Venipuncture / Unknown 06/21/2024 12:50 AM EST 06/21/2024 12:56 AM EST Martinez Reynolds MD HEMATOLOGY ORDERABLE S [facility] [place] [address] * Phosphorus (06/21/2024 12:50 AM EST) Phosphorus 3.2 2.5 - 4.5 mg/dL 06/21/2024 1:30 AM [facility] Blood VENOUS BLOOD SPECIMEN / Unknown Venipuncture / Unknown 06/21/2024 12:50 AM EST 06/21/2024 12:56 AM EST Martinez Reynolds MD CHEMISTRY ORDERABLES [facility] [place] [address] * Magnesium (06/21/2024 12:50 AM EST) Magnesium 0.81 0.69 - 1.07 mMol/L 06/21/2024 1:30 AM EST [facility] Blood VENOUS BLOOD SPECIMEN / Unknown Venipuncture / Unknown 06/21/2024 12:50 AM EST 06/21/2024 12:56 AM EST Martinez Reynolds MD CHEMISTRY ORDERABLES [facility] [place] [address] * (ABNORMAL) Basic Metabolic Panel (06/21/2024 12:50 AM EST) Glucose 126 65 - 199 mg/dL 06/21/2024 1:44 AM [facility] Comment:Glucose Concentratio n >=200 mg/dL plus symptoms is consistent with Diabetes Mellitus. Blood Urea Nitrogen 12 10 - 20 mg/dL 06/21/2024 1:44 AM [facility] Creatinine 0.82 0.80 - 1.50 mg/dL 06/21/2024 1:44 AM [facility] Sodium 141 135 - 145 mMol/L 06/21/2024 1:44 AM [facility] Potassium 4.3 3.5 - 5.0 mMol/L 06/21/2024 1:44 AM [facility] Chloride 111(H) 98 - 107 mMol/L 06/21/2024 1:44 AM [facility] Carbon Dioxide 18(L) 22 - 31 mMol/L 06/21/2024 1:44 AM [facility] Anion Gap 12 5 - 15 mMol/L 06/21/2024 1:44 AM [facility] Calcium 9.0 8.5 - 10.5 mg/dL 06/21/2024 1:44 AM [facility] Est Glomerular Filtration Rate - Male 118 mL/min/1. 73 m?? 06/21/2024 1:44 AM [facility] Comment: This patient's estimated GFR was [...] 12:50 AM EST 06/21/2024 12:56 AM EST Matrinez Reynolds MD CHEMISTRY ORDERABLES [facility] [place] [address] * (ABNORMAL) Hepatic Function Panel (06/20/2024 12:53 AM EST) Albumin 4.4 3.2 - 5.2 g/dL 06/20/2024 1:42 AM EST [facility] Aspartate Aminotransferase 65(H) <=39 unit/L 06/20/2024 1:42 AM EST [facility] Alanine Aminotransferase 80(H) 0 - 55 unit/L 06/20/2024 1:42 AM [facility] Alkaline Phosphatase 128 40 - 130 unit/L 06/20/2024 1:42 AM EST [facility] Bilirubin, Total <0.2 <=1.3 mg/dL 06/20/2024 1:42 AM EST [facility] Bilirubin, Direct <0.2 0.0 - 0.3 mg/dL 06/20/2024 1:42 AM EST [facility] Protein, Total 7.4 6.1 - 8.0 g/dL 06/20/2024 1:42 AM EST [facility] Blood VENOUS BLOOD SPECIMEN / Unknown Venipuncture / Unknown 06/20/2024 12:53 AM EST 06/20/2024 1:11 AM EST Martinez Reynolds MD CHEMISTRY ORDERABLES [facility] [place] [address] * (ABNORMAL) CBC (with Diff) (06/20/2024 12:53 AM EST) White Blood Cell 5.59 4.00 - 9.50 x10(3)/mc L 06/20/2024 1:23 AM [facility] Red Blood Cell 5.50 4.58 - 5.54 x10(6)/mc L 06/20/2024 1:23 AM [facility] Hemoglobin 13.5(L) 13.7 - 16.5 g/dL 06/20/2024 1:23 AM [facility] Hematocrit 40.9 40.5 - 48.5 % 06/20/2024 1:23 AM [facility] Mean Cell Volume 74.4(L) 82.9 - 93.1 fL 06/20/2024 1:23 AM [facility] Mean Cell Hemoglobin 24.5(L) 27.5 - 32.1 pg 06/20/2024 1:23 AM [facility] Mean Cell Hemoglobin Concentration 33.0 32.0 - 35.7 g/dL 06/20/2024 1:23 AM [facility] Platelet 303 145 - 357 x10(3)/mc L 06/20/2024 1:23 AM [facility] Mean Platelet Volume 8.9 7.6 - 12.9 fL 06/20/2024 1:23 AM [facility] RDW Standard Deviation 39.6 36.0 - 45.0 fL 06/20/2024 1:23 AM [facility] RDW coefficient of variation 14.7(H) 11.4 - 13.8 % 06/20/2024 1:23 AM [facility] NRBC% auto 0.0 % 06/20/2024 1:23 AM [facility] NRBC Absolute <0.01 <0.01 x10(3)/mc L 06/20/2024 1:23 AM [facility] Neutrophil % 54.2 % 06/20/2024 1:23 AM [facility] Neutrophil Absolute (ANC) - Automated 3.03 1.70 - 6.10 x10(3)/mc L 06/20/2024 1:23 AM [facility] Lymph % 31.1 % 06/20/2024 1:23 AM [facility] Lymph Absolute 1.74 0.90 - 3.20 x10(3)/mc L 06/20/2024 1:23 AM [facility] Monocyte % 11.8 % 06/20/2024 1:23 AM [facility] Monocyte Absolute 0.66 0.30 - 0.90 x10(3)/mc L 06/20/2024 1:23 AM [facility] Eos % 2.0 % 06/20/2024 1:23 AM [facility] Eos Absolute 0.11 0.00 - 0.40 x10(3)/mc L 06/20/2024 1:23 AM [facility] Basophil % 0.4 % 06/20/2024 1:23 AM [facility] Baso Absolute <0.04 0.00 - 0.10 x10(3)/mc L 06/20/2024 1:23 AM [facility] Immature Gran % 0.5 % 1:23 AM [facility] Immature Gran Absolute <0.04 0.00 - 0.04 x10(3)/mc L 06/20/2024 1:23 AM [facility] Blood VENOUS BLOOD SPECIMEN / Unknown Venipuncture / Unknown 06/20/2024 12:53 AM EST 06/20/2024 1:12 AM EST Martinez Reynolds MD HEMATOLOGY ORDERABLE S [facility] [place] [address] * Phosphorus (06/20/2024 12:53 AM EST) Pathologist [facility] Phosphorus 3.7 2.5 - 4.5 mg/dL 06/20/2024 1:42 AM [facility] Blood VENOUS BLOOD SPECIMEN / Unknown Venipuncture / Unknown 06/20/2024 12:53 AM EST 06/20/2024 1:11 AM EST Martinez Reynolds MD CHEMISTRY ORDERABLES Performing Organization Address City/[facility]/ZIP Co de Phone Number [facility] [place] [address] * Magnesium (06/20/2024 12:53 AM EST) [facility] Magnesium 0.76 0.69 - 1.07 mMol/L 06/20/2024 1:42 AM [facility] Blood VENOUS BLOOD SPECIMEN / Unknown Venipuncture / Unknown 06/20/2024 12:53 AM EST 06/20/2024 1:11 AM EST Martinez Reynolds MD CHEMISTRY ORDERABLES Performing Organization Address City/[facility]/ZIP Co de Phone Number [facility] [place] [address] * (ABNORMAL) Basic Metabolic Panel (06/20/2024 12:53 AM EST) [facility] Glucose 95 65 - 199 mg/dL 06/20/2024 1:42 AM [facility] Comment:Glucose Concentratio n >=200 mg/dL plus symptoms is consistent with Diabetes Mellitus. Blood Urea Nitrogen 10 10 - 20 mg/dL 06/20/2024 1:42 AM [facility] Creatinine 0.75(L) 0.80 - 1.50 mg/dL 06/20/2024 1:42 AM [facility] Sodium 137 135 - 145 mMol/L 06/20/2024 1:42 AM [facility] Potassium 3.7 3.5 - 5.0 mMol/L 06/20/2024 1:42 AM EST [facility] Chloride 102 98 - 107 mMol/L 06/20/2024 1:42 AM [facility] Carbon Dioxide 20(L) 22 - 31 mMol/L 06/20/2024 1:42 AM [facility] Anion Gap 15 5 - 15 mMol/L 06/20/2024 1:42 AM EST [facility] Calcium 9.1 8.5 - 10.5 mg/dL 06/20/2024 1:42 AM EST [facility] Est Glomerular Filtration Rate - Male 121 mL/min/1. 73 m?? 06/20/2024 1:42 AM [facility] Comment: This patient's estimated GFR was [...] MD CHEMISTRY ORDERABLES [facility] [place] [address] * (ABNORMAL) Hepatic Function Panel (06/19/2024 4:10 AM EST) Albumin 4.2 3.2 - 5.2 g/dL 06/19/2024 4:51 AM EST [facility] Aspartate Aminotransferase 57(H) <=39 unit/L 06/19/2024 4:51 AM EST [facility] Alanine Aminotransferase 76(H) 0 - 55 unit/L 06/19/2024 4:51 AM [facility] Alkaline Phosphatase 133(H) 40 - 130 unit/L 06/19/2024 4:51 AM [facility] Bilirubin, Total 0.2 <=1.3 mg/dL 06/19/2024 4:51 AM [facility] Bilirubin, Direct <0.2 0.0 - 0.3 mg/dL 06/19/2024 4:51 AM [facility] Protein, Total 7.5 6.1 - 8.0 g/dL 06/19/2024 4:51 AM [facility] Blood VENOUS BLOOD SPECIMEN / Unknown Venipuncture / Unknown 06/19/2024 4:10 AM EST 06/19/2024 4:21 AM EST Martinez Reynolds MD CHEMISTRY ORDERABLES Performing Organization Address City/State/[facility] Co de Phone Number [facility] [place] [address] * (ABNORMAL) CBC (with Diff) (06/19/2024 4:10 AM EST) White Blood Cell 6.86 4.00 - 9.50 x10(3)/mc L 06/19/2024 4:28 AM [facility] Red Blood Cell 5.60(H) 4.58 - 5.54 x10(6)/mc L 06/19/2024 4:28 AM [facility] Hemoglobin 13.8 13.7 - 16.5 g/dL 06/19/2024 4:28 AM [facility] Hematocrit 41.6 40.5 - 48.5 % 06/19/2024 4:28 AM [facility] Mean Cell Volume 74.3(L) 82.9 - 93.1 fL 06/19/2024 4:28 AM [facility] Mean Cell Hemoglobin 24.6(L) 27.5 - 32.1 pg 06/19/2024 4:28 AM [facility] Mean Cell Hemoglobin Concentration 33.2 32.0 - 35.7 g/dL 06/19/2024 4:28 AM [facility] Platelet 297 145 - 357 x10(3)/mc L 06/19/2024 4:28 AM [facility] Mean Platelet Volume 9.1 7.6 - 12.9 fL 06/19/2024 4:28 AM [facility] RDW Standard Deviation 39.1 36.0 - 45.0 fL 06/19/2024 4:28 AM [facility] RDW coefficient of variation 14.8(H) 11.4 - 13.8 % 06/19/2024 4:28 AM [facility] NRBC% auto 0.0 % 06/19/2024 4:28 AM [facility] NRBC Absolute <0.01 <0.01 x10(3)/mc L 06/19/2024 4:28 AM [facility] Neutrophil % 64.0 % 06/19/2024 4:28 AM [facility] Neutrophil Absolute (ANC) - Automated 4.39 1.70 - 6.10 x10(3)/mc L 06/19/2024 4:28 AM [facility] Lymph % 28.7 % 06/19/2024 4:28 AM [facility] Lymph Absolute 1.97 0.90 - 3.20 x10(3)/mc L 06/19/2024 4:28 AM [facility] Monocyte % 4.1 % 06/19/2024 4:28 AM [facility] Monocyte Absolute 0.28(L) 0.30 - 0.90 x10(3)/mc L 06/19/2024 4:28 AM [facility] Eos % 2.2 % 06/19/2024 4:28 AM [facility] Eos Absolute 0.15 0.00 - 0.40 x10(3)/mc L 06/19/2024 4:28 AM EST [facility] Basophil % 0.4 % 06/19/2024 4:28 AM EST [facility] Baso Absolute <0.04 0.00 - 0.10 x10(3)/mc L 06/19/2024 4:28 AM EST [facility] Immature Gran % 0.6 % 4:28 AM EST [facility] Immature Gran Absolute 0.04 0.00 - 0.04 x10(3)/mc L 06/19/2024 4:28 AM EST [facility] Blood VENOUS BLOOD SPECIMEN / Unknown Venipuncture / Unknown 06/19/2024 4:10 AM EST 06/19/2024 4:21 AM EST Martinez Reynolds MD HEMATOLOGY ORDERABLE S [facility] [place] [address] * (ABNORMAL) Phosphorus (06/19/2024 4:10 AM EST) Phosphorus 5.0(H) 2.5 - 4.5 mg/dL 06/19/2024 4:51 AM EST [facility] Blood VENOUS BLOOD SPECIMEN / Unknown Venipuncture / Unknown 06/19/2024 4:10 AM EST 06/19/2024 4:21 AM EST Martinez Reynolds MD CHEMISTRY ORDERABLES [facility] [place] [address] * Magnesium (06/19/2024 4:10 AM EST) Magnesium 0.74 0.69 - 1.07 mMol/L 06/19/2024 4:51 AM EST [facility] Blood VENOUS BLOOD SPECIMEN / Unknown Venipuncture / Unknown 06/19/2024 4:10 AM EST 06/19/2024 4:21 AM EST Martinez Reynolds MD CHEMISTRY ORDERABLES [facility] [place] [address] * (ABNORMAL) Basic Metabolic Panel (06/19/2024 4:10 AM EST) Glucose 112 65 - 199 mg/dL 06/19/2024 4:51 AM [facility] Comment:Glucose Concentratio n >=200 mg/dL plus symptoms is consistent with Diabetes Mellitus. Blood Urea Nitrogen 19 10 - 20 mg/dL 06/19/2024 4:51 AM [facility] Creatinine 0.86 0.80 - 1.50 mg/dL 06/19/2024 4:51 AM [facility] Sodium 135 135 - 145 mMol/L 06/19/2024 4:51 AM [facility] Potassium 3.8 3.5 - 5.0 mMol/L 06/19/2024 4:51 AM [facility] Chloride 97(L) 98 - 107 mMol/L 06/19/2024 4:51 AM [facility] Carbon Dioxide 25 22 - 31 mMol/L 06/19/2024 4:51 AM [facility] Anion Gap 13 5 - 15 mMol/L 06/19/2024 4:51 AM [facility] Calcium 9.4 8.5 - 10.5 mg/dL 06/19/2024 4:51 AM [facility] Est Glomerular Filtration Rate - Male 117 mL/min/1. 73 m?? 06/19/2024 4:51 AM [facility] Comment: This patient's estimated GFR was [...] MD CHEMISTRY ORDERABLES [facility] [place] [address] * (ABNORMAL) Urinalysis with reflex Culture (06/19/2024 3:22 AM EST) Glucose, Urine Dipstick Negative Negative 06/19/2024 3:37 AM [facility] Protein, Urine Dipstick Negative Negative 06/19/2024 3:37 AM [facility] Bilirubin, Urine Dipstick Negative Negative 06/19/2024 3:37 AM [facility] Comment:Clinical correlation required for positive Urine Bilirubin results as false positive may occur with some drugs and drug related products. If a false positive is suspected a serum total bilirubin should be considered if clinically indicated. Urobilinogen, Urine Dipstick Normal Normal, 0.2 mg/dL, 1.0 mg/dL 06/19/2024 3:37 AM [facility] pH, Urine (dipstick) 6.5 5.0 - 8.0 06/19/2024 3:37 AM [facility] Blood, Urine Dipstick Negative Negative 06/19/2024 3:37 AM [facility] Ketone, Urine Dipstick Negative Negative 06/19/2024 3:37 AM [facility] Nitrite, Urine Dipstick Negative Negative 06/19/2024 3:37 AM [facility] Leukocytes, Urine Dipstick Negative Negative 06/19/2024 3:37 AM [facility] Specific [place] Urine Automated 1.021 1.005 - 1.030 06/19/2024 3:37 AM EST [facility] Appearance, Urine Dipstick Cloudy(A) Clear 06/19/2024 3:37 AM EST [facility] Color, Urine Dipstick Yellow Yellow, Dark Yellow 06/19/2024 3:37 AM EST [facility] CULTURE ADDED? 06/19/2024 3:37 AM EST [facility] Urine URINE SPECIMEN OBTAINED VIA STRAIGHT CATHETER / Unknown Non Blood Collection / Unknown 06/19/2024 3:22 AM EST 06/19/2024 3:31 AM EST Pamela Johnson DO URINE ORDERABLES [facility] [place] [address] * XR Chest One View (06/18/2024 7:55 PM EST) [employer] WORKSTATION ID [id number] DH RAD Anatomical Region Laterality Modality Chest [...] who have questions please contact the health senior caregiver that requested your imaging first. ? Electronically signed by: Tobias Sotomayor MD, [facility] ([phone]), at 06/18/2024 8:09 PM Narrative 06/18/2024 8:09 [...] patients who have questions please contactthe health senior caregiver that requested your imaging first. Electronically signed by: [facility]otomayor MD[facility]([phone]), at 06/18/2024 8:09 PM Pamela Johnson DO IMG DX ORDERABLES * Blood culture (06/18/2024 7:00 PM EST) Blood Culture No growth at 120 hours 06/23/2024 8:00 PM EST [facility] Blood VENOUS BLOOD SPECIMEN / Unknown Venipuncture / Unknown 06/18/2024 7:00 PM EST 06/18/2024 7:05 PM EST Pamela Johnson DO MICROBIOLOGY - BL OOD ORDERABLES [facility] [place] [address] * (ABNORMAL) Blood culture (06/18/2024 7:00 PM EST) [facility] Blood Culture Coagulase Negative Staphylococcus species(Critical) VITEK [...] - BL OOD ORDERABLES Performing Organization Address City/[facility]/ZIP Co de Phone Number [facility] [place] [address] * POC, GLUCOSE (06/18/2024 6:55 PM EST) [facility] Glucometer, POC 100 65 - 199 mg/dL 06/18/2024 6:56 PM EST [facility] Comment:Supplemental ranges: <140 mg/dL before meals <180 mg/dL all other times of the day. Blood CAPILLARY BLOOD / Unknown 06/18/2024 6:55 PM EST 06/18/2024 6:56 PM EST Pamela Johnson DO POINT OF CARE TABATHA T ORDERABLES [facility] [place] [address] * EKG 12 Lead (06/18/2024 1:41 PM EST) [facility] Ventricular rate 47 BPM MUSE SYSTEM Atrial Rate 47 BPM MUSE SYSTEM P-R Interval 186 ms MUSE SYSTEM QRS Duration 114 ms MUSE SYSTEM Q-T Interval 558 ms MUSE SYSTEM QTC Calculated (Bezet) 493 ms MUSE SYSTEM Calculated P [place] 11 degrees MUSE SYSTEM Calculated R [place] 45 degrees MUSE SYSTEM Calculated T [place] 45 degrees MUSE SYSTEM INTERPRETATION Sinus bradycardia [...] Reynolds MD ECG ORDERABLES Performing Organization Address City/[facility]/ZIP Co de Phone Number MUSE SYSTEM * Sodium (06/18/2024 12:22 PM EST) Sodium 135 135 - 145 mMol/L 06/18/2024 1:01 PM EST [facility] Blood VENOUS BLOOD SPECIMEN / Unknown Venipuncture / Unknown 06/18/2024 12:22 PM EST 06/18/2024 12:35 PM EST Pamela Johnson DO CHEMISTRY ORDERAB LES Performing Organization Address City/[facility]/ZIP Co de Phone Number [facility] [place] [address] * CT Head wo Contrast (Generic) (06/18/2024 11:18 AM EST) WORKSTATION ID [id number] RAD Anatomical Region Laterality Modality Head Computed [...] who have questions please contact the health senior caregiver that requested your imaging first. ? [...] patients who have questions please contactthe health senior caregiver that requested your imaging first. Pamela Johnson DO [facility] * (ABNORMAL) Hepatic Function Panel (06/18/2024 1:26 AM EST) [facility] Albumin 4.2 3.2 - 5.2 g/dL 06/18/2024 2:02 AM EST [facility] Aspartate Aminotransferase 52(H) <=39 unit/L 06/18/2024 2:02 AM [facility] Alanine Aminotransferase 61(H) 0 - 55 unit/L 06/18/2024 2:02 AM [facility] Alkaline Phosphatase 118 40 - 130 unit/L 06/18/2024 2:02 AM [facility] Bilirubin, Total 0.3 <=1.3 mg/dL 06/18/2024 2:02 AM [facility] Bilirubin, Direct <0.2 0.0 - 0.3 mg/dL 06/18/2024 2:02 AM [facility] Protein, Total 6.9 6.1 - 8.0 g/dL 06/18/2024 2:02 AM [facility] Blood VENOUS BLOOD SPECIMEN / Unknown Venipuncture / Unknown 06/18/2024 1:26 AM EST 06/18/2024 1:34 AM EST Martinez Reynolds MD CHEMISTRY ORDERABLES [facility] [place] [address] * (ABNORMAL) CBC (with Diff) (06/18/2024 1:26 AM EST) [facility] White Blood Cell 9.78(H) 4.00 - 9.50 x10(3)/mc L 06/18/2024 1:38 AM EST [facility] Red Blood Cell 5.02 4.58 - 5.54 x10(6)/mc L 06/18/2024 1:38 AM [facility] Hemoglobin 12.4(L) 13.7 - 16.5 g/dL 06/18/2024 1:38 AM [facility] Hematocrit 37.2(L) 40.5 - 48.5 % 06/18/2024 1:38 AM [facility] Mean Cell Volume 74.1(L) 82.9 - 93.1 fL 06/18/2024 1:38 AM [facility] Mean Cell Hemoglobin 24.7(L) 27.5 - 32.1 pg 06/18/2024 1:38 AM [facility] Mean Cell Hemoglobin Concentration 33.3 32.0 - 35.7 g/dL 06/18/2024 1:38 AM [facility] Platelet 262 145 - 357 x10(3)/mc L 06/18/2024 1:38 AM [facility] Mean Platelet Volume 9.2 7.6 - 12.9 fL 06/18/2024 1:38 AM [facility] RDW Standard Deviation 40.8 36.0 - 45.0 fL 06/18/2024 1:38 AM [facility] RDW coefficient of variation 15.3(H) 11.4 - 13.8 % 06/18/2024 1:38 AM [facility] NRBC% auto 0.0 % 06/18/2024 1:38 AM [facility] NRBC Absolute <0.01 <0.01 x10(3)/mc L 06/18/2024 1:38 AM [facility] Neutrophil % 72.8 % 06/18/2024 1:38 AM [facility] Neutrophil Absolute (ANC) - Automated 7.12(H) 1.70 - 6.10 x10(3)/mc L 06/18/2024 1:38 AM [facility] Lymph % 16.9 % 06/18/2024 1:38 AM [facility] Lymph Absolute 1.65 0.90 - 3.20 x10(3)/mc L 06/18/2024 1:38 AM [facility] Monocyte % 8.7 % 06/18/2024 1:38 AM [facility] Monocyte Absolute 0.85 0.30 - 0.90 x10(3)/mc L 06/18/2024 1:38 AM [facility] Eos % 1.0 % 06/18/2024 1:38 AM [facility] Eos Absolute 0.10 0.00 - 0.40 x10(3)/mc L 06/18/2024 1:38 AM [facility] Basophil % 0.2 % 06/18/2024 1:38 AM [facility] Baso Absolute <0.04 0.00 - 0.10 x10(3)/mc L 06/18/2024 1:38 AM [facility] Immature Gran % 0.4 % 1:38 AM [facility] Immature Gran Absolute 0.04 0.00 - 0.04 x10(3)/mc L 06/18/2024 1:38 AM [facility] Blood VENOUS BLOOD SPECIMEN / Unknown Venipuncture / Unknown 06/18/2024 1:26 AM EST 06/18/2024 1:34 AM EST Martinez Reynolds MD HEMATOLOGY ORDERABLE S Performing Organization Address City/State/[facility] Co de Phone Number [facility] [place] [address] * (ABNORMAL) Phosphorus (06/18/2024 1:26 AM EST) Phosphorus 5.7(H) 2.5 - 4.5 mg/dL 06/18/2024 2:02 AM [facility] Blood VENOUS BLOOD SPECIMEN / Unknown Venipuncture / Unknown 06/18/2024 1:26 AM EST 06/18/2024 1:34 AM EST Martinez Reynolds MD CHEMISTRY ORDERABLES [facility] [place] [address] * Magnesium (06/18/2024 1:26 AM EST) Magnesium 0.84 0.69 - 1.07 mMol/L 06/18/2024 2:02 AM [facility] Blood VENOUS BLOOD SPECIMEN / Unknown Venipuncture / Unknown 06/18/2024 1:26 AM EST 06/18/2024 1:34 AM EST Martinez Reynolds MD CHEMISTRY ORDERABLES Performing Organization Address City/[facility]/ZIP Co de Phone Number [facility] [place] [address] * Basic Metabolic Panel (06/18/2024 1:26 AM EST) Pathologist [facility] Glucose 106 65 - 199 mg/dL 06/18/2024 2:02 AM [facility] Comment:Glucose Concentratio n >=200 mg/dL plus symptoms is consistent with Diabetes Mellitus. Blood Urea Nitrogen 15 10 - 20 mg/dL 06/18/2024 2:02 AM [facility] Creatinine 1.05 0.80 - 1.50 mg/dL 06/18/2024 2:02 AM [facility] Sodium 138 135 - 145 mMol/L 06/18/2024 2:02 AM [facility] Potassium 4.4 3.5 - 5.0 mMol/L 06/18/2024 2:02 AM [facility] LABORATORY Chloride 102 98 - 107 mMol/L 06/18/2024 2:02 AM [facility] Carbon Dioxide 25 22 - 31 mMol/L 06/18/2024 2:02 AM [facility] Anion Gap 11 5 - 15 mMol/L 06/18/2024 2:02 AM [facility] Calcium 9.3 8.5 - 10.5 mg/dL 06/18/2024 2:02 AM EST [facility] Est Glomerular Filtration Rate - Male 96 mL/min/1. 73 m?? 06/18/2024 2:02 AM EST [facility] Comment: [...] MD CHEMISTRY ORDERABLES [facility] [place] [id number] * EKG 12 Lead (06/18/2024 12:53 AM EST) Ventricular rate 79 BPM MUSE SYSTEM Atrial Rate 79 BPM MUSE SYSTEM P-R Interval 160 ms MUSE SYSTEM QRS Duration 98 ms MUSE SYSTEM Q-T Interval 420 ms MUSE SYSTEM QTC Calculated (Bezet) 481 ms MUSE SYSTEM Calculated P [place] 17 degrees MUSE SYSTEM Calculated R [place] 46 degrees MUSE SYSTEM Calculated T [place] 45 degrees MUSE SYSTEM INTERPRETATION Normal sinus rhythm Nonspecific T wave abnormality Prolonged QT Abnormal ECG When compared with ECG of 14-JUN-2024 01:04, Nonspecific T wave abnormality now evident in Anterior leads I personally reviewed the tracing and edited the fellows interpretation Confirmed by fellow MD Corbin, Maninder ([id number]) on 06/18/2024 4:57:53 PM Confirmed by Anthony [...] MD CHEMISTRY ORDERABLES [facility] [place] [address] * (ABNORMAL) Hepatic Function Panel (06/17/2024 11:58 AM EST) Albumin 4.2 3.2 - 5.2 g/dL 06/17/2024 12:45 PM [facility] Aspartate Aminotransferase 37 <=39 unit/L 06/17/2024 12:45 PM [facility] Alanine Aminotransferase 58(H) 0 - 55 unit/L 06/17/2024 12:45 PM [facility] Alkaline Phosphatase 118 40 - 130 unit/L 06/17/2024 12:45 PM [facility] Bilirubin, Total 0.2 <=1.3 mg/dL 06/17/2024 12:45 PM [facility] Bilirubin, Direct <0.2 0.0 - 0.3 mg/dL 06/17/2024 12:45 PM [facility] Protein, Total 7.1 6.1 - 8.0 g/dL 06/17/2024 12:45 PM EST [facility] Blood VENOUS BLOOD SPECIMEN / Unknown Venipuncture / Unknown 06/17/2024 11:58 AM EST 06/17/2024 12:11 PM EST Pamela Johnson DO CHEMISTRY ORDERAB LES Performing Organization Address City/[facility]/ZIP Co de Phone Number [facility] [place] [address] * Sodium (06/17/2024 11:58 AM EST) Sodium 141 135 - 145 mMol/L 06/17/2024 12:45 PM EST [facility] Blood VENOUS BLOOD SPECIMEN / Unknown Venipuncture / Unknown 06/17/2024 11:58 AM EST 06/17/2024 12:11 PM EST Channing Ballesteros MD CHEMISTRY ORDERABLES Performing Organization Address [facility]/ZIP Co de Phone Number [facility] [place] [address] * Sodium (06/17/2024 6:23 AM EST) Sodium 140 135 - 145 mMol/L 06/17/2024 6:53 AM EST [facility] Blood VENOUS BLOOD SPECIMEN / Unknown Venipuncture / Unknown 06/17/2024 6:23 AM EST 06/17/2024 6:29 AM EST Channing Ballesteros MD CHEMISTRY ORDERABLES Performing Organization Address City/[facility]/ZIP Co de Phone Number [facility] [place] [address] * (ABNORMAL) CBC (with Diff) (06/17/2024 12:22 AM EST) White Blood Cell 6.81 4.00 - 9.50 x10(3)/mc L 06/17/2024 12:37 AM EST [facility] Red Blood Cell 5.20 4.58 - 5.54 x10(6)/mc L 06/17/2024 12:37 AM EST [facility] Hemoglobin 12.9(L) 13.7 - 16.5 g/dL 06/17/2024 12:37 AM EST [facility] Hematocrit 37.9(L) 40.5 - 48.5 % 06/17/2024 12:37 AM [facility] Mean Cell Volume 72.9(L) 82.9 - 93.1 fL 06/17/2024 12:37 AM [facility] Mean Cell Hemoglobin 24.8(L) 27.5 - 32.1 pg 06/17/2024 12:37 AM [facility] Mean Cell Hemoglobin Concentration 34.0 32.0 - 35.7 g/dL 06/17/2024 12:37 AM [facility] Platelet 301 145 - 357 x10(3)/mc L 06/17/2024 12:37 AM [facility] Mean Platelet Volume 9.0 7.6 - 12.9 fL 06/17/2024 12:37 AM [facility] RDW Standard Deviation 38.8 36.0 - 45.0 fL 06/17/2024 12:37 AM [facility] RDW coefficient of variation 14.9(H) 11.4 - 13.8 % 06/17/2024 12:37 AM [facility] NRBC% auto 0.0 % 06/17/2024 12:37 AM [facility] NRBC Absolute <0.01 <0.01 x10(3)/mc L 06/17/2024 12:37 AM [facility] Neutrophil % 58.2 % 06/17/2024 12:37 AM [facility] Neutrophil Absolute (ANC) - Automated 3.96 1.70 - 6.10 x10(3)/mc L 06/17/2024 12:37 AM [facility] Lymph % 30.1 % 06/17/2024 12:37 AM [facility] Lymph Absolute 2.05 0.90 - 3.20 x10(3)/mc L 06/17/2024 12:37 AM [facility] Monocyte % 9.8 % 06/17/2024 12:37 AM [facility] Monocyte Absolute 0.67 0.30 - 0.90 x10(3)/mc L 06/17/2024 12:37 AM EST [facility] Eos % 1.0 % 06/17/2024 12:37 AM [facility] Eos Absolute 0.07 0.00 - 0.40 x10(3)/mc L 06/17/2024 12:37 AM EST [facility] Basophil % 0.3 % 06/17/2024 12:37 AM [facility] Baso Absolute <0.04 0.00 - 0.10 x10(3)/mc L 06/17/2024 12:37 AM [facility] Immature Gran % 0.6 % 12:37 AM [facility] Immature Gran Absolute 0.04 0.00 - 0.04 x10(3)/mc L 06/17/2024 12:37 AM [facility] Blood VENOUS BLOOD SPECIMEN / Unknown Venipuncture / Unknown 06/17/2024 12:22 AM EST 06/17/2024 12:28 AM EST Martinez Reynolds MD HEMATOLOGY ORDERABLE S [facility] [place] [address] * Phosphorus (06/17/2024 12:22 AM EST) Phosphorus 4.3 2.5 - 4.5 mg/dL 06/17/2024 12:58 AM EST [facility] Blood VENOUS BLOOD SPECIMEN / Unknown Venipuncture / Unknown 06/17/2024 12:22 AM EST 06/17/2024 12:28 AM EST Martinez Reynolds MD CHEMISTRY ORDERABLES [facility] [place] [address] * Magnesium (06/17/2024 12:22 AM EST) Magnesium 0.88 0.69 - 1.07 mMol/L 06/17/2024 12:58 AM EST [facility] Blood VENOUS BLOOD SPECIMEN / Unknown Venipuncture / Unknown 06/17/2024 12:22 AM EST 06/17/2024 12:28 AM EST Martinez Reynolds MD CHEMISTRY ORDERABLES [facility] [place] [address] * Basic Metabolic Panel (06/17/2024 12:22 AM EST) Glucose 99 65 - 199 mg/dL 06/17/2024 1:12 AM [facility] Comment:Glucose Concentratio n >=200 mg/dL plus symptoms is consistent with Diabetes Mellitus. Blood Urea Nitrogen 14 10 - 20 mg/dL 06/17/2024 1:12 AM [facility] Creatinine 0.90 0.80 - 1.50 mg/dL 06/17/2024 1:12 AM [facility] Sodium 140 135 - 145 mMol/L 06/17/2024 1:12 AM [facility] Potassium 4.1 3.5 - 5.0 mMol/L 06/17/2024 1:12 AM [facility] Chloride 105 98 - 107 mMol/L 06/17/2024 1:12 AM [facility] Carbon Dioxide 24 22 - 31 mMol/L 06/17/2024 1:12 AM [facility] Anion Gap 11 5 - 15 mMol/L 06/17/2024 1:12 AM [facility] Calcium 9.4 8.5 - 10.5 mg/dL 06/17/2024 1:12 AM [facility] Est Glomerular Filtration Rate - Male 115 mL/min/1. 73 m?? 06/17/2024 1:12 AM [facility] Comment: This patient's estimated GFR was [...] Reynolds MD CHEMISTRY ORDERABLES Performing Organization Address City/[facility]/ZIP Co de Phone Number [facility] [place] [address] * Sodium (06/16/2024 6:37 PM EST) Sodium 142 135 - 145 mMol/L 06/16/2024 6:55 PM EST [facility] Blood VENOUS BLOOD SPECIMEN / Unknown Venipuncture / Unknown 06/16/2024 6:37 PM EST 06/16/2024 6:42 PM EST Channing Ballesteros MD CHEMISTRY ORDERABLES Performing Organization Address City/[facility]/ZIP Co de Phone Number [facility] [place] [address] * Sodium (06/16/2024 2:05 PM EST) Sodium 135 135 - 145 mMol/L 06/16/2024 2:54 PM EST [facility] Blood VENOUS BLOOD SPECIMEN / Unknown Venipuncture / Unknown 06/16/2024 2:05 PM EST 06/16/2024 2:23 PM EST Channing Ballesteros MD CHEMISTRY ORDERABLES [facility] [place] [address] * Sodium (06/16/2024 12:03 PM EST) Sodium 139 135 - 145 mMol/L 06/16/2024 1:02 PM EST [facility] Blood VENOUS BLOOD SPECIMEN / Unknown Venipuncture / Unknown 06/16/2024 12:03 PM EST 06/16/2024 12:06 PM EST Marline Calderon [employer] DIRECT[employer] CHEMISTRY ORDERABL ES [facility] [place] [address] * (ABNORMAL) Sodium (06/16/2024 6:00 AM EST) Sodium 131(L) 135 - 145 mMol/L 06/16/2024 6:26 AM EST [facility] Blood VENOUS BLOOD SPECIMEN / Unknown Venipuncture / Unknown 06/16/2024 6:00 AM EST 06/16/2024 6:03 AM EST Marline Calderon [employer] DIRECT[employer] CHEMISTRY ORDERABL ES [facility] [place] [address] * (ABNORMAL) CBC (with Diff) (06/16/2024 12:09 AM EST) White Blood Cell 7.71 4.00 - 9.50 x10(3)/mc L 06/16/2024 12:26 AM EST [facility] Red Blood Cell 4.69 4.58 - 5.54 x10(6)/mc L 06/16/2024 12:26 AM EST [facility] Hemoglobin 11.7(L) 13.7 - 16.5 g/dL 06/16/2024 12:26 AM EST [facility] Hematocrit 33.8(L) 40.5 - 48.5 % 06/16/2024 12:26 AM [facility] Mean Cell Volume 72.1(L) 82.9 - 93.1 fL 06/16/2024 12:26 AM [facility] Mean Cell Hemoglobin 24.9(L) 27.5 - 32.1 pg 06/16/2024 12:26 AM [facility] Mean Cell Hemoglobin Concentration 34.6 32.0 - 35.7 g/dL 06/16/2024 12:26 AM [facility] Platelet 241 145 - 357 x10(3)/mc L 06/16/2024 12:26 AM [facility] Mean Platelet Volume 9.3 7.6 - 12.9 fL 06/16/2024 12:26 AM [facility] RDW Standard Deviation 37.3 36.0 - 45.0 fL 06/16/2024 12:26 AM [facility] RDW coefficient of variation 14.5(H) 11.4 - 13.8 % 06/16/2024 12:26 AM [facility] NRBC% auto 0.0 % 06/16/2024 12:26 AM [facility] NRBC Absolute <0.01 <0.01 x10(3)/mc L 06/16/2024 12:26 AM [facility] Neutrophil % 64.4 % 06/16/2024 12:26 AM [facility] Neutrophil Absolute (ANC) - Automated 4.96 1.70 - 6.10 x10(3)/mc L 06/16/2024 12:26 AM [facility] Lymph % 23.7 % 06/16/2024 12:26 AM [facility] Lymph Absolute 1.83 0.90 - 3.20 x10(3)/mc L 06/16/2024 12:26 AM [facility] Monocyte % 9.7 % 06/16/2024 12:26 AM [facility] Monocyte Absolute 0.75 0.30 - 0.90 x10(3)/mc L 06/16/2024 12:26 AM EST [facility] Eos % 1.0 % 06/16/2024 12:26 AM EST [facility] Eos Absolute 0.08 0.00 - 0.40 x10(3)/mc L 06/16/2024 12:26 AM EST [facility] Basophil % 0.4 % 06/16/2024 12:26 AM EST [facility] Baso Absolute <0.04 0.00 - 0.10 x10(3)/mc L 06/16/2024 12:26 AM EST [facility] Immature Gran % 0.8 % 12:26 AM [facility] Immature Gran Absolute 0.06(H) 0.00 - 0.04 x10(3)/mc L 06/16/2024 12:26 AM [facility] Blood VENOUS BLOOD SPECIMEN / Unknown Venipuncture / Unknown 06/16/2024 12:09 AM EST 06/16/2024 12:21 AM EST Martinez Reynolds MD HEMATOLOGY ORDERABLE S [facility] [place] [address] * Phosphorus (06/16/2024 12:09 AM EST) Phosphorus 3.2 2.5 - 4.5 mg/dL 06/16/2024 12:50 AM EST [facility] Blood VENOUS BLOOD SPECIMEN / Unknown Venipuncture / Unknown 06/16/2024 12:09 AM EST 06/16/2024 12:21 AM EST Martinez Reynolds MD CHEMISTRY ORDERABLES [facility] [place] [address] * Magnesium (06/16/2024 12:09 AM EST) Magnesium 0.85 0.69 - 1.07 mMol/L 06/16/2024 12:50 AM [facility] Blood VENOUS BLOOD SPECIMEN / Unknown Venipuncture / Unknown 06/16/2024 12:09 AM EST 06/16/2024 12:21 AM EST Martinez Reynolds MD CHEMISTRY ORDERABLES [facility] [place] [address] * (ABNORMAL) Basic Metabolic Panel (06/16/2024 12:09 AM EST) Glucose 92 65 - 199 mg/dL 06/16/2024 12:50 AM [facility] Comment:Glucose Concentratio n >=200 mg/dL plus symptoms is consistent with Diabetes Mellitus. Blood Urea Nitrogen 12 10 - 20 mg/dL 06/16/2024 12:50 AM [facility] Creatinine 0.92 0.80 - 1.50 mg/dL 06/16/2024 12:50 AM [facility] Sodium 131(L) 135 - 145 mMol/L 06/16/2024 12:50 AM [facility] Potassium 3.9 3.5 - 5.0 mMol/L 06/16/2024 12:50 AM [facility] Chloride 99 98 - 107 mMol/L 06/16/2024 12:50 AM [facility] Carbon Dioxide 22 22 - 31 mMol/L 06/16/2024 12:50 AM [facility] Anion Gap 10 5 - 15 mMol/L 06/16/2024 12:50 AM [facility] Calcium 8.3(L) 8.5 - 10.5 mg/dL 06/16/2024 12:50 AM [facility] Est Glomerular Filtration Rate - Male 112 mL/min/1. 73 m?? 06/16/2024 12:50 AM [facility] Comment: This patient's estimated GFR was [...] Reynolds MD CHEMISTRY ORDERABLES Performing Organization Address City/[facility]/[place] [address] * (ABNORMAL) Sodium (2024 5:58 PM EST) Sodium 129(L) 135 - 145 mMol/L 2024 6:37 PM EST [facility] Blood VENOUS BLOOD SPECIMEN / Unknown Venipuncture / Unknown 2024 5:58 PM EST 2024 6:05 PM EST Marline Calderon APRN CHEMISTRY ORDERABL ES Performing Organization Address [facility] [place] [address] * MRI Brain wwo Contrast (Generic) (2024 4:20 PM EST) WORKSTATION ID [id number] DH RAD Anatomical Region Laterality Modality Head [...] who have questions please contact the health senior caregiver that requested your imaging first. ? [...] clip with its blades near the right BOX STAPLER. Procedure Note Raudel Heredia MD - 2024 [...] aneurysm clipwith its blades near the right BOX STAPLER. IMPRESSION Homogeneously enhancing 3.5 cm mass along [...] patients who have questions please contactthe health senior caregiver that requested your imaging first. Marline Calderon APRN IMG MRI ORDERABLES * (ABNORMAL) Sodium (2024 12:07 PM EST) Sodium 129(L) 135 - 145 mMol/L 2024 12:47 PM EST [facility] Blood VENOUS BLOOD SPECIMEN / Unknown Venipuncture / Unknown 2024 12:07 PM EST 2024 12:33 PM EST Marline Calderon APRN CHEMISTRY ORDERABL ES [facility] [place] [address] * (ABNORMAL) Sodium (2024 5:54 AM EST) Sodium 128(L) 135 - 145 mMol/L 2024 6:42 AM [facility] Blood VENOUS BLOOD SPECIMEN / Unknown Venipuncture / Unknown 2024 5:54 AM EST 2024 6:14 AM EST Marline Calderon [employer] DIRECT[employer] CHEMISTRY ORDERABL ES [facility] [place] [address] * (ABNORMAL) CBC (with Diff) (2024 12:06 AM EST) Pathologist [facility] White Blood Cell 6.30 4.00 - 9.50 x10(3)/mc L 2024 12:17 AM [facility] Red Blood Cell 4.79 4.58 - 5.54 x10(6)/mc L 2024 12:17 AM [facility] Hemoglobin 11.9(L) 13.7 - 16.5 g/dL 2024 12:17 AM [facility] Hematocrit 34.2(L) 40.5 - 48.5 % 2024 12:17 AM [facility] Mean Cell Volume 71.4(L) 82.9 - 93.1 fL 2024 12:17 AM [facility] Mean Cell Hemoglobin 24.8(L) 27.5 - 32.1 pg 2024 12:17 AM [facility] Mean Cell Hemoglobin Concentration 34.8 32.0 - 35.7 g/dL 2024 12:17 AM [facility] Platelet 269 145 - 357 x10(3)/mc L 2024 12:17 AM [facility] Mean Platelet Volume 9.1 7.6 - 12.9 fL 2024 12:17 AM [facility] RDW Standard Deviation 35.5(L) 36.0 - 45.0 fL 2024 12:17 AM [facility] RDW coefficient of variation 13.9(H) 11.4 - 13.8 % 2024 12:17 AM [facility] NRBC% auto 0.0 % 2024 12:17 AM [facility] NRBC Absolute <0.01 <0.01 x10(3)/mc L 2024 12:17 AM [facility] Neutrophil % 57.9 % 2024 12:17 AM [facility] Neutrophil Absolute (ANC) - Automated 3.65 1.70 - 6.10 x10(3)/mc L 2024 12:17 AM [facility] Lymph % 30.3 % 2024 12:17 AM [facility] Lymph Absolute 1.91 0.90 - 3.20 x10(3)/mc L 2024 12:17 AM [facility] Monocyte % 9.7 % 2024 12:17 AM [facility] Monocyte Absolute 0.61 0.30 - 0.90 x10(3)/mc L 2024 12:17 AM [facility] Eos % 1.3 % 2024 12:17 AM [facility] Eos Absolute 0.08 0.00 - 0.40 x10(3)/mc L 2024 12:17 AM [facility] Basophil % 0.3 % 2024 12:17 AM [facility] Baso Absolute <0.04 0.00 - 0.10 x10(3)/mc L 2024 12:17 AM [facility] Immature Gran % 0.5 % 12:17 AM [facility] Immature Gran Absolute <0.04 0.00 - 0.04 x10(3)/mc L 2024 12:17 AM EST [facility] Blood VENOUS BLOOD SPECIMEN / Unknown Venipuncture / Unknown 2024 12:06 AM EST 2024 12:10 AM EST Martinez Reynolds MD HEMATOLOGY ORDERABLE S [facility] [place] [address] * Phosphorus (2024 12:06 AM EST) Phosphorus 2.8 2.5 - 4.5 mg/dL 2024 12:39 AM EST [facility] Blood VENOUS BLOOD SPECIMEN / Unknown Venipuncture / Unknown 2024 12:06 AM EST 2024 12:10 AM EST Martinez Reynolds MD CHEMISTRY ORDERABLES Performing Organization Address City/[facility] Co de Phone Number [facility] [place] [address] * Magnesium (2024 12:06 AM EST) Magnesium 0.79 0.69 - 1.07 mMol/L 2024 12:39 AM EST [facility] Blood VENOUS BLOOD SPECIMEN / Unknown Venipuncture / Unknown 2024 12:06 AM EST 2024 12:10 AM EST Martinez Reynolds MD CHEMISTRY ORDERABLES Performing Organization Address City/[facility] Co de Phone Number [facility] [place] [address] * (ABNORMAL) Basic Metabolic Panel (2024 12:06 AM EST) Glucose 103 65 - 199 mg/dL 2024 12:39 AM [facility] Comment:Glucose Concentratio n >=200 mg/dL plus symptoms is consistent with Diabetes Mellitus. Blood Urea Nitrogen 14 10 - 20 mg/dL 2024 12:39 AM [facility] Creatinine 0.74(L) 0.80 - 1.50 mg/dL 2024 12:39 AM [facility] Sodium 128(L) 135 - 145 mMol/L 2024 12:39 AM [facility] Potassium 4.1 3.5 - 5.0 mMol/L 2024 12:39 AM [facility] Chloride 97(L) 98 - 107 mMol/L 2024 12:39 AM [facility] Carbon Dioxide 19(L) 22 - 31 mMol/L 2024 12:39 AM [facility] Anion Gap 12 5 - 15 mMol/L 2024 12:39 AM [facility] Calcium 8.1(L) 8.5 - 10.5 mg/dL 2024 12:39 AM [facility] Est Glomerular Filtration Rate - Male 122 mL/min/1. 73 m?? 2024 12:39 AM [facility] Comment: This patient's estimated GFR was [...] Reynolds MD CHEMISTRY ORDERABLES Performing Organization Address City/[facility]/ZIP Co de Phone Number [facility] [place] [address] * (ABNORMAL) Sodium (06/14/2024 6:49 PM EST) Sodium 126(L) 135 - 145 mMol/L 06/14/2024 7:17 PM EST [facility] Blood VENOUS BLOOD SPECIMEN / Unknown Venipuncture / Unknown 06/14/2024 6:49 PM EST 06/14/2024 6:53 PM EST Marline Calderon APRN CHEMISTRY ORDERABL ES Performing Organization Address [facility] Co de Phone Number [facility] [place] [address] * EEG Continuous Monitoring Inpatient (06/14/2024 3:33 [...] Alfred MD CHEMISTRY ORDERABLES Performing Organization Address City/[facility]/ZIP Co de Phone Number [facility] [place] [address] * (ABNORMAL) Sodium (06/14/2024 12:12 PM EST) Sodium 125(L) 135 - 145 mMol/L 06/14/2024 12:48 PM EST [facility] Blood VENOUS BLOOD SPECIMEN / Unknown Venipuncture / Unknown 06/14/2024 12:12 PM EST 06/14/2024 12:20 PM EST Mariola Alfred MD CHEMISTRY ORDERABLES [facility] [place] [address] * (ABNORMAL) Sodium (06/14/2024 10:35 AM EST) Sodium 125(L) 135 - 145 mMol/L 06/14/2024 11:21 AM EST [facility] Blood VENOUS BLOOD SPECIMEN / Unknown Venipuncture / Unknown 06/14/2024 10:35 AM EST 06/14/2024 10:44 AM EST Mariola Alfred MD CHEMISTRY ORDERABLES Performing Organization Address City/[facility]/ZIP Co de Phone Number [facility] [place] [address] * Request For 2nd Read CT Head (06/14/2024 9:46 AM EST) WORKSTATION ID [id number] [facility] Anatomical Region Laterality Modality Head SO Impressions [...] who have questions please contact the health senior caregiver that requested your imaging first. ? [...] Reinterpretation of noncontrast CT head performed at [facility] 06/13/2024 at 2143 hours COMPARISON: [...] patients who have questions please contactthe health senior caregiver that requested your imaging first. Lexie Osullivan APRN IMG OUTSIDE INTERP RETATION ORDERABLES * (ABNORMAL) Urinalysis Microscopic (06/14/2024 8:06 AM EST) Bacteria, Urine None None /HPF 12:26 PM [facility] Amorphous Crystals, Urine Many(A) None /HPF 06/14/2024 12:26 PM [facility] RBC, Urine 1 0 - 3 /HPF 06/14/2024 12:26 PM [facility] WBC, Urine 1 0 - 3 /HPF 06/14/2024 12:26 PM [facility] Squamous Epithelial Cells, Urine 0 0 - 5 /HPF 06/14/2024 12:26 PM [facility] Hyaline Casts, Urine 0 0 - 2 /LPF 06/14/2024 12:26 PM [facility] Urine URINE SPECIMEN / Unknown Non Blood Collection / Unknown 06/14/2024 8:06 AM EST 06/14/2024 8:52 AM EST Marline Calderon APRN URINE ORDERABLES Performing Organization Address [facility] Co de Phone Number [facility] [place] [address] * Urinalysis Microscopic Exam (06/14/2024 8:06 AM EST) Urine URINE SPECIMEN / Unknown Non Blood Collection / Unknown 06/14/2024 8:06 AM EST 06/14/2024 8:52 AM EST Marline Calderon APRN URINE ORDERABLES Performing Organization Address [facility] Co de Phone Number [facility] [place] [address] * (ABNORMAL) Urinalysis Dipstick (06/14/2024 8:06 AM EST) Glucose, Urine Dipstick Negative Negative 06/14/2024 12:26 PM [facility] Protein, Urine Dipstick Negative Negative 06/14/2024 12:26 PM [facility] Bilirubin, Urine Dipstick Negative Negative 06/14/2024 12:26 PM [facility] Comment:Clinical correlation required for positive Urine Bilirubin results as false positive may occur with some drugs and drug related products. If a false positive is suspected a serum total bilirubin should be considered if clinically indicated. Urobilinogen, Urine Dipstick Normal Normal, 0.2 mg/dL, 1.0 mg/dL 06/14/2024 12:26 PM [facility] pH, Urine (dipstick) 7.0 5.0 - 8.0 06/14/2024 12:26 PM [facility] Blood, Urine Dipstick Negative Negative 06/14/2024 12:26 PM [facility] LABORATORY Ketone, Urine Dipstick Negative Negative 06/14/2024 12:26 PM [facility] Nitrite, Urine Dipstick Negative Negative 06/14/2024 12:26 PM [facility] Leukocytes, Urine Dipstick Negative Negative 06/14/2024 12:26 PM [facility] Specific [place] Urine Automated 1.016 1.005 - 1.030 06/14/2024 12:26 PM [facility] Appearance, Urine Dipstick Turbid(A) Clear 06/14/2024 12:26 PM [facility] Color, Urine Dipstick Yellow Yellow, Dark Yellow 06/14/2024 12:26 PM [facility] CULTURE ADDED? 06/14/2024 12:26 PM [facility] Urine URINE SPECIMEN / Unknown Non Blood Collection / Unknown 06/14/2024 8:06 AM EST 06/14/2024 8:52 AM EST Marline Calderon APRN URINE ORDERABLES [facility] [place] [address] * (ABNORMAL) Sodium (06/14/2024 8:06 AM EST) Sodium 124(L) 135 - 145 mMol/L 06/14/2024 9:59 AM EST [facility] Blood VENOUS BLOOD SPECIMEN / Unknown Venipuncture / Unknown 06/14/2024 8:06 AM EST 06/14/2024 8:53 AM EST Mariola Alfred MD CHEMISTRY ORDERABLES [facility] [place] [address] * Electrolytes, urine, random (06/14/2024 8:06 AM [...] Alfred MD URINE ORDERABLES Performing Organization Address City/[facility]/ZIP Co de Phone Number [facility] [place] [address] * Osmolality, urine, random (06/14/2024 8:06 AM EST) Osmolality, Urine 496 50 - 1,200 mOsm/kg 06/14/2024 10:55 AM [facility] Urine URINE SPECIMEN / Unknown Non Blood Collection / Unknown 06/14/2024 8:06 AM EST 06/14/2024 8:52 AM EST Mariola Alfred MD URINE ORDERABLES [facility] [place] [address] * (ABNORMAL) CBC (with Diff) (06/14/2024 5:27 AM EST) White Blood Cell 8.68 4.00 - 9.50 x10(3)/mc L 06/14/2024 5:54 AM [facility] Red Blood Cell 5.08 4.58 - 5.54 x10(6)/mc L 06/14/2024 5:54 AM [facility] Hemoglobin 12.5(L) 13.7 - 16.5 g/dL 06/14/2024 5:54 AM [facility] Hematocrit 35.8(L) 40.5 - 48.5 % 06/14/2024 5:54 AM [facility] Mean Cell Volume 70.5(L) 82.9 - 93.1 fL 06/14/2024 5:54 AM [facility] Mean Cell Hemoglobin 24.6(L) 27.5 - 32.1 pg 06/14/2024 5:54 AM [facility] Mean Cell Hemoglobin Concentration 34.9 32.0 - 35.7 g/dL 06/14/2024 5:54 AM [facility] Platelet 284 145 - 357 x10(3)/mc L 06/14/2024 5:54 AM [facility] Mean Platelet Volume 9.2 7.6 - 12.9 fL 06/14/2024 5:54 AM [facility] RDW Standard Deviation 34.3(L) 36.0 - 45.0 fL 06/14/2024 5:54 AM [facility] RDW coefficient of variation 13.6 11.4 - 13.8 % 06/14/2024 5:54 AM [facility] NRBC% auto 0.0 % 06/14/2024 5:54 AM [facility] NRBC Absolute <0.01 <0.01 x10(3)/mc L 06/14/2024 5:54 AM [facility] Neutrophil % 81.7 % 06/14/2024 5:54 AM [facility] Neutrophil Absolute (ANC) - Automated 7.09(H) 1.70 - 6.10 x10(3)/mc L 06/14/2024 5:54 AM [facility] Lymph % 13.0 % 06/14/2024 5:54 AM [facility] Lymph Absolute 1.13 0.90 - 3.20 x10(3)/mc L 06/14/2024 5:54 AM [facility] Monocyte % 4.3 % 06/14/2024 5:54 AM [facility] Monocyte Absolute 0.37 0.30 - 0.90 x10(3)/mc L 06/14/2024 5:54 AM [facility] Eos % 0.2 % 06/14/2024 5:54 AM [facility] Eos Absolute <0.04 0.00 - 0.40 x10(3)/mc L 06/14/2024 5:54 AM EST [facility] Basophil % 0.2 % 06/14/2024 5:54 AM EST [facility] Baso Absolute <0.04 0.00 - 0.10 x10(3)/mc L 06/14/2024 5:54 AM EST [facility] Immature Gran % 0.6 % 5:54 AM EST [facility] Immature Gran Absolute 0.05(H) 0.00 - 0.04 x10(3)/mc L 06/14/2024 5:54 AM EST [facility] Blood VENOUS BLOOD SPECIMEN / Unknown Venipuncture / Unknown 06/14/2024 5:27 AM EST 06/14/2024 5:45 AM EST Martinez Reynolds MD HEMATOLOGY ORDERABLE S [facility] [place] [address] * Phosphorus (06/14/2024 5:27 AM EST) Phosphorus 2.8 2.5 - 4.5 mg/dL 06/14/2024 8:36 AM EST [facility] Blood VENOUS BLOOD SPECIMEN / Unknown Venipuncture / Unknown 06/14/2024 5:27 AM EST 06/14/2024 5:45 AM EST Martinez Reynolds MD CHEMISTRY ORDERABLES [facility] [place] [address] * Magnesium (06/14/2024 5:27 AM EST) Magnesium 0.83 0.69 - 1.07 mMol/L 06/14/2024 6:22 AM EST [facility] Blood VENOUS BLOOD SPECIMEN / Unknown Venipuncture / Unknown 06/14/2024 5:27 AM EST 06/14/2024 5:45 AM EST Martinez Reynolds MD CHEMISTRY ORDERABLES [facility] [place] [address] * (ABNORMAL) Basic Metabolic Panel (06/14/2024 5:27 AM EST) Glucose 109 65 - 199 mg/dL 06/14/2024 6:22 AM EST [facility] Comment:Glucose Concentratio n >=200 mg/dL plus symptoms is consistent with Diabetes Mellitus. Blood Urea Nitrogen 14 10 - 20 mg/dL 06/14/2024 6:22 AM [facility] Creatinine 0.76(L) 0.80 - 1.50 mg/dL 06/14/2024 6:22 AM [facility] Sodium 124(L) 135 - 145 mMol/L 06/14/2024 6:22 AM [facility] Potassium 4.0 3.5 - 5.0 mMol/L 06/14/2024 6:22 AM [facility] Chloride 93(L) 98 - 107 mMol/L 06/14/2024 6:22 AM [facility] Carbon Dioxide 19(L) 22 - 31 mMol/L 06/14/2024 6:22 AM [facility] Anion Gap 12 5 - 15 mMol/L 06/14/2024 6:22 AM [facility] Calcium 7.9(L) 8.5 - 10.5 mg/dL 06/14/2024 6:22 AM [facility] Est Glomerular Filtration Rate - Male 122 mL/min/1. 73 m?? 06/14/2024 6:22 AM [facility] Comment: This patient's estimated GFR was [...] MD CHEMISTRY ORDERABLES [facility] [place] [address] * XR Chest One View (06/14/2024 4:02 AM EST) [employer] WORKSTATION ID [id number] RAD Anatomical Region Laterality Modality Chest N/A [...] who have questions please contact the health senior caregiver that requested your imaging first. ? [...] patients who have questions please contactthe health senior caregiver that requested your imaging first. Mariola Alfred MD IMG DX ORDERABLES * (ABNORMAL) Sodium (06/14/2024 3:32 AM EST) Sodium 122(L) 135 - 145 mMol/L 06/14/2024 4:02 AM EST [facility] Blood VENOUS BLOOD SPECIMEN / Unknown Venipuncture / Unknown 06/14/2024 3:32 AM EST 06/14/2024 3:37 AM EST Mariola Alfred MD CHEMISTRY ORDERABLES [facility] [place] [address] * (ABNORMAL) Blood Gas, Venous POC (06/14/2024 1:35 AM EST) pH, Venous 7.39 7.32 - 7.42 06/14/2024 1:36 AM [facility] PCO2, Venous 37(L) 38 - 58 mmHg 06/14/2024 1:36 AM [facility] PO2, Venous 27 16 - 65 mmHg 06/14/2024 1:36 AM [facility] Bicarbonate, Venous 21.9(L) 22 - 31 mmol/L 06/14/2024 1:36 AM [facility] Base Excess, Venous -3.1(L) 1.9 - 4.5 mmol/L 06/14/2024 1:36 AM [facility] Hemoglobin, Venous 13.4(L) 13.7 - 16.5 g/dL 06/14/2024 1:36 AM [facility] Oxyhemoglobin, Venous 46.8 % 06/14/2024 1:36 AM [facility] Carboxyhemoglobin , Venous 0.7 % 06/14/2024 1:36 AM [facility] Comment: Nonsmokers: 0.5-1.5% COHB ?? Smokers: Variable ??but usually less than 10% ?? Toxic: 20-30% COHB ?? Lethal: Greater than 60% COHB Methemoglobin, Venous 0.3 <=1.5 % 06/14/2024 1:36 AM [facility] Sodium, Venous 123(L) 135 - 145 mmol/L 06/14/2024 1:36 AM [facility] Potassium, Venous 3.7 3.5 - 5.0 mmol/L 06/14/2024 1:36 AM [facility] Chloride, Venous 92(L) 98 - 107 mmol/L 06/14/2024 1:36 AM [facility] Glucose, Venous 85 65 - 199 mg/dL 06/14/2024 1:36 AM [facility] Comment:Glucose Concentratio n >=200 mg/dL plus symptoms is consistent with Diabetes Mellitus. Lactate, Venous 2.3(H) 0.5 - 2.2 mmol/L 06/14/2024 1:36 AM [facility] Ionized Calcium, Venous 1.10(L) 1.15 - 1.33 mmol/L 06/14/2024 1:36 AM EST [facility] Blood VENOUS BLOOD SPECIMEN / Unknown 06/14/2024 1:35 AM EST 06/14/2024 1:36 AM EST Mariola Alfred MD POINT OF CARE TEST O ELISABET Performing Organization Address [facility] Co de Phone Number [facility] [place] [address] * POC, GLUCOSE (06/14/2024 1:06 AM EST) Glucometer, POC 113 65 - 199 mg/dL 06/14/2024 1:06 AM EST [facility] Comment:Supplemental ranges: <140 mg/dL before meals <180 mg/dL all other times of the day. Blood CAPILLARY BLOOD / Unknown 06/14/2024 1:06 AM EST 06/14/2024 1:06 AM EST Mariola Alfred MD POINT OF CARE TEST O ELISABET Performing Organization Address [facility] Co de Phone Number [facility] [place] [place] [address] * EKG 12 Lead (06/14/2024 1:04 AM EST) Ventricular rate 85 BPM MUSE SYSTEM Atrial Rate 85 BPM MUSE SYSTEM P-R Interval 182 ms MUSE SYSTEM QRS Duration 94 ms MUSE SYSTEM Q-T Interval 388 ms MUSE SYSTEM QTC Calculated (Bezet) 461 ms MUSE SYSTEM Calculated P [place] 35 degrees MUSE SYSTEM Calculated R [place] 57 degrees MUSE SYSTEM Calculated T [place] 48 degrees MUSE SYSTEM INTERPRETATION Normal sinus rhythm Normal ECG When compared with ECG of 01-MAR-2018 09:20, Nonspecific T wave abnormality no longer evident in Inferior leads T wave inversion no longer evident in Lateral leads I personally reviewed the tracing and edited the fellows interpretation Confirmed by fellow Rosalie Obrien ([id number]) on 2024 9:31:30 PM Confirmed by Hannah Marin MD ([id number]) on 06/17/2024 11:43:44 AM MUSE SYSTEM 06/14/2024 1:04 AM EST 06/17/2024 11:43 AM EST Mariola Alfred MD ECG ORDERABLES MUSE SYSTEM * Scan, Peripheral Blood (06/14/2024 1:03 AM EST) RBC Morphology Abnormal 06/14/2024 2:00 AM EST [facility] Platelet Estimate Normal Normal 06/14/2024 2:00 AM [facility] Microcyte 1-5 /HPF 06/14/2024 2:00 AM [facility] Tear Cell 1-5 /HPF 06/14/2024 2:00 AM [facility] Blood VENOUS BLOOD SPECIMEN / Unknown Venipuncture / Unknown 06/14/2024 1:03 AM EST 06/14/2024 1:08 AM EST Mariola Alfred MD HEMATOLOGY ORDERABLE S [facility] [place] [id number] * (ABNORMAL) CBC (with Diff) (06/14/2024 1:03 AM EST) White Blood Cell 10.38(H) 4.00 - 9.50 x10(3)/mc L 06/14/2024 2:00 AM [facility] Red Blood Cell 5.05 4.58 - 5.54 x10(6)/mc L 06/14/2024 2:00 AM [facility] Hemoglobin 12.2(L) 13.7 - 16.5 g/dL 06/14/2024 2:00 AM [facility] Hematocrit 35.5(L) 40.5 - 48.5 % 06/14/2024 2:00 AM [facility] Mean Cell Volume 70.3(L) 82.9 - 93.1 fL 06/14/2024 2:00 AM [facility] Mean Cell Hemoglobin 24.2(L) 27.5 - 32.1 pg 06/14/2024 2:00 AM [facility] Mean Cell Hemoglobin Concentration 34.4 32.0 - 35.7 g/dL 06/14/2024 2:00 AM [facility] Platelet 276 145 - 357 x10(3)/mc L 06/14/2024 2:00 AM [facility] Mean Platelet Volume 9.0 7.6 - 12.9 fL 06/14/2024 2:00 AM [facility] RDW Standard Deviation 33.6(L) 36.0 - 45.0 fL 06/14/2024 2:00 AM [facility] RDW coefficient of variation 13.4 11.4 - 13.8 % 06/14/2024 2:00 AM [facility] NRBC% auto 0.0 % 06/14/2024 2:00 AM [facility] NRBC Absolute <0.01 <0.01 x10(3)/mc L 06/14/2024 2:00 AM [facility] Neutrophil % 85.7 % 06/14/2024 2:00 AM [facility] Neutrophil Absolute (ANC) - Automated 8.90(H) 1.70 - 6.10 x10(3)/mc L 06/14/2024 2:00 AM [facility] Lymph % 8.4 % 06/14/2024 2:00 AM [facility] Lymph Absolute 0.87(L) 0.90 - 3.20 x10(3)/mc L 06/14/2024 2:00 AM [facility] Monocyte % 4.4 % 06/14/2024 2:00 AM [facility] Monocyte Absolute 0.46 0.30 - 0.90 x10(3)/mc L 06/14/2024 2:00 AM [facility] Eos % 0.5 % 06/14/2024 2:00 AM EST [facility] Eos Absolute 0.05 0.00 - 0.40 x10(3)/mc L 06/14/2024 2:00 AM [facility] Basophil % 0.2 % 06/14/2024 2:00 AM [facility] Baso Absolute <0.04 0.00 - 0.10 x10(3)/mc L 06/14/2024 2:00 AM EST [facility] Immature Gran % 0.8 % 2:00 AM [facility] Immature Gran Absolute 0.08(H) 0.00 - 0.04 x10(3)/mc L 06/14/2024 2:00 AM [facility] Blood VENOUS BLOOD SPECIMEN / Unknown Venipuncture / Unknown 06/14/2024 1:03 AM EST 06/14/2024 1:08 AM EST Martinez Reynolds MD HEMATOLOGY ORDERABLE S [facility] [place] [address] * (ABNORMAL) Phosphorus (06/14/2024 1:03 AM EST) Phosphorus 1.5(L) 2.5 - 4.5 mg/dL 06/14/2024 1:46 AM [facility] Blood VENOUS BLOOD SPECIMEN / Unknown Venipuncture / Unknown 06/14/2024 1:03 AM EST 06/14/2024 1:08 AM EST Martinez Reynolds MD CHEMISTRY ORDERABLES [facility] [place] [address] * Magnesium (06/14/2024 1:03 AM EST) Magnesium 0.90 0.69 - 1.07 mMol/L 06/14/2024 1:46 AM [facility] Blood VENOUS BLOOD SPECIMEN / Unknown Venipuncture / Unknown 06/14/2024 1:03 AM EST 06/14/2024 1:08 AM EST Martinez Reynolds MD CHEMISTRY ORDERABLES [facility] [place] [address] * (ABNORMAL) Basic Metabolic Panel (06/14/2024 1:03 AM EST) Glucose 95 65 - 199 mg/dL 06/14/2024 1:49 AM [facility] Comment:Glucose Concentratio n >=200 mg/dL plus symptoms is consistent with Diabetes Mellitus. Blood Urea Nitrogen 14 10 - 20 mg/dL 06/14/2024 1:49 AM [facility] Creatinine 0.80 0.80 - 1.50 mg/dL 06/14/2024 1:49 AM [facility] Sodium 123(L) 135 - 145 mMol/L 06/14/2024 1:49 AM [facility] Potassium 3.7 3.5 - 5.0 mMol/L 06/14/2024 1:49 AM [facility] Chloride 91(L) 98 - 107 mMol/L 06/14/2024 1:49 AM [facility] Carbon Dioxide 19(L) 22 - 31 mMol/L 06/14/2024 1:49 AM [facility] Anion Gap 13 5 - 15 mMol/L 06/14/2024 1:49 AM [facility] Calcium 8.1(L) 8.5 - 10.5 mg/dL 06/14/2024 1:49 AM [facility] Est Glomerular Filtration Rate - Male 120 mL/min/1. 73 m?? 06/14/2024 1:49 AM [facility] Comment: This patient's estimated GFR was [...] Reynolds MD CHEMISTRY ORDERABLES Performing Organization Address City/[facility] Co de Phone Number [facility] [place] [address] * (ABNORMAL) Osmolality (06/14/2024 1:03 AM EST) Osmolality 259(L) 275 - 295 mOsm/kg 06/14/2024 1:40 AM EST [facility] Blood VENOUS BLOOD SPECIMEN / Unknown Venipuncture / Unknown 06/14/2024 1:03 AM EST 06/14/2024 1:08 AM EST Mariola Alfred MD CHEMISTRY ORDERABLES Performing Organization Address City/[facility] Co de Phone Number [facility] [place] [address] * T3 Total (06/14/2024 1:03 AM EST) T3 Total 87 80 - 200 ng/dL 06/14/2024 1:46 AM EST [facility] Blood VENOUS BLOOD SPECIMEN / Unknown Venipuncture / Unknown 06/14/2024 1:03 AM EST 06/14/2024 1:08 AM EST Mariola Alfred MD CHEMISTRY ORDERABLES Performing Organization Address City/[facility]/ZIP Co de Phone Number [facility] [place] [address] * T4, free (06/14/2024 1:03 AM EST) Free T4 1.37 0.93 - 1.70 ng/dL 06/14/2024 1:46 AM EST [facility] Blood VENOUS BLOOD SPECIMEN / Unknown Venipuncture / Unknown 06/14/2024 1:03 AM EST 06/14/2024 1:08 AM EST Mariola Alfred MD CHEMISTRY ORDERABLES Performing Organization Address City/[facility]/ZIP Co de Phone Number [facility] [place] [address] * Zonisamide level (06/14/2024 1:03 AM EST) Zonisamide Lvl November 17 10 - 40 mcg/mL 06/16/2024 9:22 PM EST [facility] [place] Comment: ADDITIONAL INFORMATION This test was developed and its performance characteristics determined by [facility] in a manner consistent with CLIA requirements. This test has not been cleared or approved by the U.S. Food and Drug Administration. Blood VENOUS BLOOD SPECIMEN / Unknown Venipuncture / Unknown 06/14/2024 1:03 AM EST 06/14/2024 1:08 AM EST Narrative [facility] 06/16/2024 9:22 PM EST Test Performed by: [facility] - [place] [id number] Dental Claims Processor: Xavier Velásquez Ph.D.; CLIA# [id number] Mariola Alfred MD LAB SEND OUT ORDERAB LES Performing Organization Address City/[facility]/ZIP Co de Phone Number [facility] [id number] [place] [address] documented in this encounter Visit Diagnoses Not [...] Bell Amezcua RN) 0835 (Given - Provider: Blel Amezcua RN) 09 (Given - Provider: Bell [...] Vomiting documented in this encounter Care Teams Working Second Hand Relationship Specialty Start Date End Date Ren Vaz MD PCP - General Family Medicine 06/02/20 06/17/24 documented as of this encounter
--- OUTSIDE RECORDS SUMMARY | 2024-08-03 14:02 | XMS_ITS | Encounter Summary ---
Author Organization [facility] [place] [address] Care Team Providers Care Branch Or Department Chief Librarian Name Role Phone Ren Vaz MD Primary Care Provider [phone] Encounter Details Date Type Department Care Team (Late st Contact Info) Description 06/13/2024 Ancillary Procedure Radiology Library at [facility] [place] [id number] Ren Vaz MD [address] [place] [address] [address] [place], [place] [id number] Social History Tobacco Use Types Packs/Day Years Used Date Smoking Tobacco: Never Smokeless Tobacco: Never Alcohol Use Standard Drinks/Week Comments No 0 (1 standard drink = 0.6 oz pur e alcohol) [facility] Inpatient Questions Answer Date Recorded Prevent Contact [...] MD IM FILM LIBRARY ORD ERABLES [place], [place] documented in this encounter Visit Diagnoses Not on filedocumented in this encounter Care Teams Branch Or Department Chief Librarian Relationship Specialty Start Date End Date Ren Vaz MD PCP - General Family Medicine 06/02/20 06/17/24 documented as of this encounter
--- OUTSIDE RECORDS SUMMARY | 2024-08-03 14:02 | XMS_ITS | Encounter Summary ---
Author Organization [facility] [place] [address] Care Team Providers Care Autocad Detailer Name Role Phone Lc Venegas Primary Care Provider [phone] Encounter Details Date Type Department Care Team (Late st Contact Info) Description 09/03/2017 Orders [place] [address] Tobias Sotomayor MD [facility] [place] [address] Social History Tobacco Use Types Packs/Day Years [...] on filedocumented in this encounter Care Teams Autocad Detailer Relationship Specialty Start Date End Date Lc Venegas PA [address] [place] [address] PCP - General General Internal Medicine 09/03/17 documented as of this encounter
--- OUTSIDE RECORDS SUMMARY | 2024-08-03 14:02 | XMS_ITS | Encounter Summary ---
Author Organization [facility] [address] Care Team Providers Care Project Management Engineer Name Role Phone Ren Vaz MD Primary Care Provider [phone] Reason for Visit * Consultation (Routine) - Closed Specialty Diagnoses / Procedures Referred By Duyen bui Referred To Contact Maxillofacial Surgery Diagnoses Extraction of tooth needed Marques Hu, DMD [address] [place] [address] Joyce Kelly PA [facility] [place] [address] Referral ID Status Reason Start Date Expiration Date V isits Requested Visits Authorized [id number] Closed Consult, Test & Treat 08/17/2021 08/17/2022 1 1 Encounter Details Date Type Department Care Team (Late st Contact Info) Description 11/01/2021 11:00 AM EDT Office Visit [place] [address] Joyce Kelly PA Dental caries Social History [...] Referral to Maxillofacial Surgery To: JOYCE KELLY [phone] Specialty: My question or request is: evaluate patient for hospitalized dental care for special needs adult ext [phone] ? Referral Information Reference# [id number] Referral type: Consultation # Visits requested: 1 [...] notations from today's history: ?? Presents with care consultant, Carmel, today ?? The patient's guardian is his sister, Bettina, he reportedly resides at [facility] ?? Per chart review has history [...] of the anterior maxillary teeth. Per the rn case mgr this was mainly in the setting of concern that the teeth may be fragile and will require extraction in the future. They would appreciate a second opinion as tothe anterior maxillary teeth ??? It is somewhat unclear as to the dentist's recommendations in regards to these teeth ??? Reportedly they are able to [facility] the [facility] with the patient on a daily basis [...] caries of #7,9,10,11 in patient residing in [facility] setting with complex medical history as described above Recommendations/plan: Clinical scenario was discussed with Dr. Luke. Discussed with the patient and care consultant thatultimately our recommendations would typically be to defer to the dentist's evaluation and recommended treatment plan, and that we are not able to offer restorative measures in our practice nor distinguish whether this would be the most appropriate course. We were able to contact her dentist's office and it does seem they had proposed jew of teeth #7,9,10,11,31. As above would ultimately [...] plan. Additional questions were addressed and the care consultant appeared satisfied with the above discussion. We appreciate the opportunity to be involved in Mr. Burgos's care. NAKIA Mims-C - Oral-Maxillofacial Surgery 11/02/2021 10:01 AM This note may have incorporated [id number] technology and though reviewed typographical or syntax errors may remain. documented in this encounter Plan of Treatment Not on file documented as of this encounter Visit Diagnoses Diagnosis Dental caries Unspecified dental caries documented in this encounter Care Teams Project Management Engineer Relationship Specialty Start Date End Date Ren Vaz MD PCP - General Family Medicine 06/02/20 06/17/24 documented as of this encounter
--- OUTSIDE RECORDS SUMMARY | 2024-08-03 14:02 | XMS_ITS | Encounter Summary ---
Author Organization [facility] Address [facility] [place] [address] Care Team Providers Care Bottom Scrubber Name Role Phone ChadjonathanLc Primary Care Provider [phone] Encounter Details Date Type Department Care Team (Late st Contact Info) Description 09/09/2018 Telephone [place] [address] Mariola Thomson MD [facility] [address] [place] [address] Social History Tobacco Use Types Packs/Day Years [...] to admit pt. Mariola Thomson MD PGY-4 [facility] [place] Pager #[phone] documented in this encounter Plan of Treatment Not on file documented as of this encounter Visit Diagnoses Not on filedocumented in this encounter Care Teams Bottom Scrubber Relationship Specialty Start Date End Date Lc Venegas PA [address] [place] [address] PCP - General General Internal Medicine 09/03/17 documented as of this encounter
--- OUTSIDE RECORDS SUMMARY | 2024-08-03 14:02 | XMS_ITS | Encounter Summary ---
Author Organization [facility] Address [facility] [place] [address] Care Team Providers Care White Lead Filterer Name Role Phone Jimbo More Primary Care Provider + Encounter Details Date Type Department Care Team (Late st Contact Info) Description 06/14/2024 9:50 AM EST Ancillary Procedure Radiology Library [place] [facility] [place] [id number] Social History Tobacco Use Types Packs/Day Years Used Date Smoking Tobacco: Never Smokeless Tobacco: Never Alcohol Use Standard Drinks/Week Comments No 0 (1 standard drink = 0.6 oz pur e alcohol) [facility] Utilities Answer Date Recorded In the [...] Head (06/14/2024 9:46 AM EST) WORKSTATION ID [id number] RAD Anatomical Region Laterality Modality Head SO [...] who have questions please contact the health early breastfeeding care specialist that requested your imaging first. ? Narrative 06/14/2024 10:41 AM EST EXAMINATION: REQUEST FOR 2ND READ CT HEAD CLINICAL HISTORY: New seizure with known mass, ?enlargening. Presenting with seizure; Sending Institution [facility]; Date of exam [id number]; I believe a reinterpretation of this exam may alter care of Patient. Yes TECHNIQUE: Reinterpretation of noncontrast CT head performed at [facility] 06/13/2024 at 2143 hours COMPARISON: Noncontrast [...] patients who have questions please contactthe health early breastfeeding care specialist that requested your imaging first. Lexie Osullivan CHIPPER MACHINE OPERATOR IMG OUTSIDE INTERP RETATION ORDERABLES documented in this encounter Visit Diagnoses Not on filedocumented in this encounter Care Teams White Lead Filterer Relationship Specialty Start Date End Date Jimbo More [place] [address] PCP - General Internal Medicine 06/18/24 documented as of this encounter
--- OUTSIDE RECORDS SUMMARY | 2024-08-03 14:02 | XMS_ITS | Encounter Summary ---
Author Organization [facility] Address [facility] [place] [address] Care Team Providers Care Pillar Worker Name Role Phone Subha Colon SECONDARY ENGLISH TEACHER Primary Care Provider [phone] Reason for Referral * Diagnostic Test (Routine) - Closed Specialty Diagnoses / Procedures Referred By Contac t Referred To Contact Radiology Diagnoses Growth hormone deficiency Fracture Procedures DXA Central Spine, Hip, and/or Whole Body (Generic) Wilder Zaidi DO [address] [place] [address] [facility] [employer] Xray [address] [facility] [place] [address] Referral ID Status Reason Start Date Expiration Date V isits Requested Visits Authorized [id number] Closed Specialty Service Requested 05/26/2019 05/25/2020 1 1 Reason for Visit * Diagnostic Test (Routine) - Closed Specialty Diagnoses / Procedures Referred By Contac t Referred To Contact Radiology Diagnoses Growth hormone deficiency Fracture Procedures DXA Central Spine, Hip, and/or Whole Body (Generic) Wilder Zaidi DO [address] [place] [address] [facility] Rad Xray [address] [facility] [place] [address] Referral ID Status Reason Start Date Expiration Date V isits Requested Visits Authorized [id number] Closed Specialty Service Requested 05/26/2019 05/25/2020 1 1 Encounter Details Date Type Department Care Team (Latest Contact Info) Description 06/21/2019 10:30 AM EST - 06/21/2019 11:59 PM [facility] Hospital Encounter XRay at [address] [place] [address] Wilder Zaidi, DO [address] [place] [address] Growth hormone deficiency; Fracture Discharge Disposition: [...] daily as needed. 60 tablet 3 03/11/2018 cyclobenzaprine (FLEXERIL) 5 mg Tablet [...] BMD measurements and plots are available in [employer] under the imaging tab. Paper copies will be sent to providers without [employer] access. If you have received this report without the data sheet and do not have access to [employer], please contact Radiology Senior Associate at [phone] Friday thru Friday 8am-4pm. ?? Thank you for letting us participate in the care of this patient. For questions regarding this report, please contact the number below. ? Electronically signed by: MATEO Smith [facility] ([phone]), at 06/24/2019 7:15 PM Narrative 06/24/2019 7:15 [...] group home steroid use, low testosterone, history offracture, per [...] BMD measurements and plots are available in [employer] the imaging tab. Paper copies will be sent to providers without [employer] access.If you have received this report without the data sheet and do not haveaccess to E-, please contact Radiology Senior Associate at [phone] Friday thrrid 8am-4pm. Thank you for letting us participate in the care of this patient. Forquestions regarding this report, please contact the number below. Wilder Zaidi DO IMG DEXA ORDERABLES documented in this encounter Visit Diagnoses Diagnosis Growth hormone deficiency Pituitary dwarfism Fracture Closed fracture of unspecified bone documented in this encounter Care Teams Pillar Worker Relationship Specialty Start Date End Date Subha Colon APRN [address] [place] [address] PCP - General Family Medicine 04/30/19 06/01/20 documented as of this encounter
--- OUTSIDE RECORDS SUMMARY | 2024-08-03 14:02 | XMS_ITS | Encounter Summary ---
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 * Consultation (Routine) - Specialty Diagnoses / Procedures Referred By Duyen bui Referred To Contact Endocrinology Diagnoses panhypopituitarism Lc Venegas PA [address] [place] [address] [facility] [place] [address] [place] [address] Referral ID Status Reason Start Date Expiration Date V isits Requested Visits Authorized [id number] Consult, [facility] 04/14/2018 04/14/2019 6 6 Encounter Details Date Type Department Care Team (Latest Contact Info) Description 07/15/2018 11:00 AM EST Office [place] [address] Christopher Hess MD [facility] [place] [address] Mariola Thomson MD [facility] [place] [address] Hypopituitarism (Primary Dx) Social History [...] seizure disorder. Miguel Angel was [place] [facility] [place] 09/02/2017 until 03/12/2018 due to a [...] energy for him. Social Hx: Lives in [facility] [phone] Lala Posada Sister is DOPA Meds: Current [...] flexeril TID Neurological: Positive for headaches (per performance engineer). Objective:BP 116/79 (BP Location (NBP): Left [...] his fluid restriction. I have asked his performance engineer Lala luu me know if his urinary [...] locally Case discussed and seen with staff Med Surg Rn, Christopher Hess MD. Of note, pt previously followed with Wilder Dejuan at [facility]- will route this note to him as pt's care providers wish him to follow here since it is closer for them in his new home. Route to NAKIA Cifuentes and Dejuan. F/u in 1 year or sooner for any changes whatsoever. Will f/u DEXA over the telephone as it is hard for them to get here. Mariola Thomson MD PGY-4 [facility] [place] Endocrinology Fellow Pager #[phone] * Christopher Hess MD - 07/15/2018 11:00 [...] CHEMISTRY ORDERABLES [facility] [place] [address] * (ABNORMAL) Basic Metabolic Panel (non-fasting) (07/15/2018 [...] of body mass or the acutely ill. http://[employer]/DHnkf eGFR 139 >=60 mL/min/1. 73 m?? [facility] Comment: The eGFR was calculated using the CKD-EPI equation. As with all creatinine based estimates of kidney function, eGFR values calculated with the CKD-EPI equation are not accurate in patients with acute kidney failure, extremes of body mass or the acutely ill. http://[employer]/[facility] [place] Blood specimen (specimen) 07/15/2018 12:49 PM EST 07/15/2018 12:55 PM EST Narrative Resulting Agency Comment Spec In Lab Christopher Hess MD CHEMISTRY ORDERABLES Performing Organization Address [facility]/ZIP Co de Phone Number [facility] [place] [address] * Vitamin D, 25-Hydroxy (07/15/2018 12:49 PM [...] be considered to be insufficient or deficient. http://[employer]lark/nkf-guidelines http://[employer]/nejm-VitD The [employer] Vitamin D Immunoassay detects both 25-OH Vitamin D2 and 25-OH Vitamin D3, but only a total Vitamin D concentration is reported. Blood specimen (specimen) 07/15/2018 12:49 PM EST 07/16/2018 7:49 AM EST Narrative Resulting Agency Comment Spec In Lab Christopher Hess MD CHEMISTRY ORDERABLES Performing Organization Address [facility]/ZIP Co de Phone Number [facility] [place] [address] documented in this encounter Visit Diagnoses Diagnosis Hypopituitarism- Primary Panhypopituitarism documented in this encounter Care Teams Recordak Operator Relationship Specialty Start Date End Date Lc Venegas PA [address] [place] [address] PCP - General General Internal Medicine 09/03/17 documented as of this encounter
--- OUTSIDE RECORDS SUMMARY | 2024-08-03 14:02 | XMS_ITS | Encounter Summary ---
[place] [address] Care Team Providers Care Silica Filter Operator Name Role Phone CinthyaeseLc Primary Care Provider [phone] Reason for Visit * Auth/Cert Specialty Diagnoses / Procedures Referred By Duyen t Referred To Contact Diagnoses Acetabular fracture Left acetabulum fracture Procedures @OPEN TREATMENT, ACETABULAR FX (WRVU 25.41) Referral ID Status Reason Start Date Expiration Date Visits Re quested Visits Authorized [id number] 1 1 Encounter Details Date Type Department Care Team (Late st Contact Info) Description 09/04/2017 9:22 AM EST Anesthesia Event [place] [address] Delfino Chavez MD [facility] [place] [address] Irving Loja MD Anesthesia Record Procedure Summary [...] without issue. VSS. Full report given to TRANSIT PLANNER. Meds Name Total fentaNYL 100 mcg IV [...] 1500; median vein (underside of arm), right; dtoy-gfz-diduay catheter system; 20 gauge; [employer]ESS [employer]ER; 09/09/17; 1999 (pt pulled out. aware.) 09/02/17 [...] Time: 1257 09/04/17 0931 by Cele Carrington OPERATOR TECHNICIAN 09/04/17 1257 by Delfino Cahvez MD (RETIRED) Peripheral IV Line - Single Lumen 09/04/17; 0940; metacarpal vein (top of hand), left; unmr-nos-wjhthx catheter system; 16 gauge; MD Scott; 0; [...] Chavez MD - 09/04/2017 2:08 PM EST [facility] [place] Department of Anesthesiology Post-procedure Note Patient: Miguel [...] All Anesthesia Providers: Anesthesiologist: Delfino Chavez MD OPERATOR TECHNICIAN: Cele Fabian CRNA Most Recent Vitals: 09/04/17 [...] discussed with legal guardian. Plan discussed with OPERATOR TECHNICIAN. PAT Staff Note documented in this encounter [...] Units documented in this encounter Care Teams Silica Filter Operator Relationship Specialty Start Date End Date Lc Venegas PA [address] [place] [address] PCP - General General Internal Medicine 09/03/17 documented as of this encounter
--- OUTSIDE RECORDS SUMMARY | 2024-08-03 14:03 | XMS_ITS | Encounter Summary ---
Author Organization [facility] Address [facility] [place] [address] Care Team Providers Care Machine Dyer Name Role Phone Corin Skinner MD Primary Care Provider Encounter Details Date Type Department Care Team (Latest Contact Info) Description 09/02/2017 12:05 AM EST - 09/02/2017 12:09 AM [facility] Radiology Library at [facility] [place] [address] Neo Gar MD Discharge Disposition: Home Social [...] MD IMG FILM LIBRARY OR DERABLES [place], [place] documented in this encounter Visit Diagnoses Not on filedocumented in this encounter Care Teams Machine Dyer Relationship Specialty Start Date End Date Corin Skinner MD PCP - General 05/29/10 09/02/17 documented as of this encounter
--- OUTSIDE RECORDS SUMMARY | 2024-08-03 14:03 | XMS_ITS | Encounter Summary ---
Author Organization [facility] Address [facility] [place] [address] Care Team Providers Care Costumed Character Name Role Phone Corin Skinner MD Primary Care Provider [phone] Encounter Details Date Type Department Care Team (Latest Contact Info) Description 09/02/2017 12:10 AM EST - 09/02/2017 12:14 AM EST Hospital Encounter Radiology Library at [facility] [place] [address] Neo Gar MD Discharge Disposition: Home Social [...] MD IMG FILM LIBRARY OR DERABLES JO [place], [place] documented in this encounter Visit Diagnoses Not on filedocumented in this encounter Care Teams Costumed Character Relationship Specialty Start Date End Date Corin Skinner MD PCP - General 05/29/10 09/02/17 documented as of this encounter
--- OUTSIDE RECORDS SUMMARY | 2024-08-03 14:03 | XMS_ITS | Encounter Summary ---
Author Organization [facility] Address [facility] [place] [address] Care Team Providers Care Community Resource Officer Name Role Phone Corin Skinner MD Primary Care Provider [phone] Encounter Details Date Type Department Care Team (Latest Contact Info) Description 09/02/2017 - 09/02/2017 12:04 AM [facility] Hospital Encounter Radiology Library at [facility] [place] [address] Neo Gar MD Discharge Disposition: Home Social [...] MD IMG FILM LIBRARY OR DERABLES [place], [place] documented in this encounter Visit Diagnoses Not on filedocumented in this encounter Care Teams Community Resource Officer Relationship Specialty Start Date End Date Corin Skinner MD PCP - General 05/29/10 09/02/17 documented as of this encounter
== END 2024-08-03 13:43 | disposition home or self-care (01) ==
LOC: LBO 13:44
PROVIDERS: PCP Student in an Organized Health Care Education/Training Program; Visit Provider Internal Medicine Endocrinology, Diabetes & Metabolism
DX: E27.49 Other adrenocortical insufficiency (principal)
CPT/HCPCS: 36415; 84295

== ENCOUNTER 2024-08-06 00:55 | Outpatient (CLI) | payer MEDICAID, SELFPAY ==
--- OUTSIDE RECORDS SUMMARY | 2024-08-06 00:56 | XMS_ITS | Data Portability ---
Author Organization [place] - [facility] Address [address] [place] [address] Care Team Providers Care Director Of Workforce Development Name Role Phone [facility] Psychiatrist Assessment No assessment recorded. Plan of Treatment Reminders Order Date Submit Date Provider Last Modified By Organization Details Last Modified Time Details Appointments None recorded. Lab lipids, total, serum 2023 024 [email or web address] (Registration ), [address] [place] [address] [place], [address], 4 14:26:44 CBC w/ auto diff 2023 024 [email or web address] [facility] (Registration ), [address] [place] [address] [place], [address], 4 16:55:12 C-reactive protein, quantitati ve, serum or plasma 2023 024 [email or web address] (Registration ), [address] [place] [address] [place], [address], 4 14:26:43 ESR (erythrocy te sedimentat ion rate), blood 2023 024 [email or web address] (Registration ), [address] [place] [address] [place], [address], 4 14:26:44 CMP, serum or plasma - 1 SST, 1 Viola, 1 LAV 2023 024 SHERRILL [facility] (Registration ), [address] [place] [address] Dr, [place], [address], 4 16:36:05 urinalysis , dipstick [address] [facility] ([facility]), [address] [place] [address] [facility], [address], 4 14:26:43 TSH, serum, reflex free T4 [address] [facility] (Registration ), [address] [place] [address] [place], [address], 4 14:26:44 BMP, serum or plasma - 1 SST [address] [facility] (Registration ), [address] [place] [address] [place] [facility] [place], [address], 4 09:25:07 BMP, serum or plasma [address] [facility] (Registration ), [address] [place] [address] , [place], [address], 5 13:13:42 Referral wound care referral - [...] him back in clinic. 2024 025 ATHENAFAX [facility], [address] [place] [address] , [address], [place], [address], 5 08:45:22 dermatolog ist referral - Pt 34-M, developmen tally disabled, non-verbal , with history of chronic excoriatio n of skin leading to frequent superficia l infection, currently treating for abscess on left posterior thigh with cephlex and improving, being referred for dermatolog y care. 2024 025 [facility] [address], [place], [address], 5 08:45:20 Procedures None recorded. Surgeries None recorded. Imaging None recorded. Medication Orders quetiapine ER 200 mg tablet,ext ended release 24 hr 2023 024 [place] [id number] [address] [place], [address], 4 12:23:09 cephalexin 500 mg capsule 2023 024 [place] [address] [address] [place], [address], 4 13:34:22 cephalexin 500 mg capsule 2024 025 [place] [address] [address] [place], [address], 5 10:28:11 cephalexin 500 mg capsule 2024 025 [place] [address] [address] [place], [address], 5 05:42:52 Patient TargetsNo targets recorded. Patient Instructions Encounter Date Encounter Id Patient Instructions Last Modified By Organization Details Last Modified Time 05/04/2024 [id number] cellulitis: care instructions [email or web address] Not available 05/04/2024 11:24:50 07/15/2024 [id number] I have referred Miguel Angel to the [...] notify us. Not available 07/15/2024 10:30:34 07/22/2024 [id number] As written on your visit sheet. [email or web address] Not available 07/22/2024 11:12:36 Reason for Referral [...] back in clinic. 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 Referring Physician: Jimbo More [facility], Encounter Date: 07/22/2024 Results Created Date Observation Date Name Description Value Unit Range Abnormal Flag Note LastModifiedBy Organization Detail LastModifiedTime 03/05/2003/05/2024 COMPL ETE BLOOD COUNT W/DIF F WBC 6.97 10_3/ uL 4.4-10 .8 normal Not Available [address] [place], [address] 03/05/2024 16:12:09 03/05/20 24 03/05/2024 COMPL ETE BLOOD COUNT W/DIF F RBC 5.23 10_6/ uL 4.36-5 .78 normal Not Available [address] [place], [address] 03/05/2024 16:12:09 03/05/20 24 03/05/2024 COMPL ETE BLOOD COUNT W/DIF F HGB 13.0 g/dL 13.5-1 7.5 low Not Available [address] [place], [address] 03/05/2024 16:12:09 03/05/20 24 03/05/2024 COMPL ETE BLOOD COUNT W/DIF F HCT 40.3 % 40.0-5 0.0 normal Not Available [address] [place], [address] 03/05/2024 16:12:09 03/05/20 24 03/05/2024 COMPL ETE BLOOD COUNT W/DIF F MCV 77 fL 80-95 low Not Available Barrie gomez [address] [place], [address] 03/05/2024 16:12:09 03/05/20 24 03/05/2024 COMPL ETE BLOOD COUNT W/DIF F MCH 24.9 pg 27.0-3 3.0 low Not Available [address] [place], [address] 03/05/2024 16:12:09 03/05/20 24 03/05/2024 COMPL ETE BLOOD COUNT W/DIF F MCHC 32.3 % 32.0-3 6.0 normal Not Available [address] [place], [address] 03/05/2024 16:12:09 03/05/20 24 03/05/2024 COMPL ETE BLOOD COUNT W/DIF F RDW 15.7 % 11.8-1 4.1 high Not Available [address] [place], [address] 03/05/2024 16:12:09 03/05/20 24 03/05/2024 COMPL ETE BLOOD COUNT W/DIF F platelet count 237 10_3/ uL 130-40 0 normal Not Available [address] [place], [address] 03/05/2024 16:12:09 03/05/20 24 03/05/2024 COMPL ETE BLOOD COUNT W/DIF F MPV 10.4 fL 8.0-11 .0 normal Not Available [address] [place], [address] 03/05/2024 16:12:09 03/05/20 24 03/05/2024 COMPL ETE BLOOD COUNT W/DIF F neutrophils % 62.7 % Not Available Santiago cantu [address] [place], [address] 03/05/2024 16:12:09 03/05/20 24 03/05/2024 COMPL ETE BLOOD COUNT W/DIF F lymphocytes % 25.3 % Not Available [address] [place], [address] 03/05/2024 16:12:09 03/05/20 24 03/05/2024 COMPL ETE BLOOD COUNT W/DIF F monocytes % 9.3 % Not Available [address] [place], [address] 03/05/2024 16:12:09 03/05/20 24 03/05/2024 COMPL ETE BLOOD COUNT W/DIF F eosinophils % 1.9 % Not Available [address] [place], [address] 03/05/2024 16:12:09 03/05/20 24 03/05/2024 COMPL ETE BLOOD COUNT W/DIF F basophils % 0.4 % Not Available [address] [place], [address] 03/05/2024 16:12:09 03/05/20 24 03/05/2024 COMPL ETE BLOOD COUNT W/DIF F immature grans % 0.4 % Not Available [address] [place], [address] 03/05/2024 16:12:09 03/05/20 24 03/05/2024 COMPL ETE BLOOD COUNT W/DIF F nucleated RBC 0.0 % 0.0-0. 3 normal Not Available [address] [place], [address] 03/05/2024 16:12:09 03/05/20 24 03/05/2024 COMPL ETE BLOOD COUNT W/DIF F absolute neutrophil count 4.37 10_3/ uL 1.2-6. 7 normal Not Available [address] [place], [address] 03/05/2024 16:12:09 03/05/20 24 03/05/2024 COMPL ETE BLOOD COUNT W/DIF F absolute lymphocyte count 1.76 10_3/ uL 1.2-3. 4 normal Not Available [address] [place], [address] 03/05/2024 16:12:09 03/05/20 24 03/05/2024 COMPL ETE BLOOD COUNT W/DIF F absolute monocyte count 0.65 10_3/ uL 0.1-0. 8 normal Not Available [address] [place], [address] 03/05/2024 16:12:09 03/05/20 24 03/05/2024 COMPL ETE BLOOD COUNT W/DIF F absolute eosinophil count 0.13 10_3/ uL 0.0-0. 7 normal Not Available [address] [place], [address] 03/05/2024 16:12:09 03/05/20 24 03/05/2024 COMPL ETE BLOOD COUNT W/DIF F absolute basophil count 0.03 10_3/ uL 0.0-0. 2 normal Not Available [address] [place], [address] 03/05/2024 16:12:09 03/05/20 24 03/05/2024 ESR ESR 2 mm/HR 0-15 normal Not Available [address] [place], [address] 03/05/2024 16:13:06 03/05/20 24 03/05/2024 COMPR EHENS BEBE METAB OLIC PANEL calcium 9.3 mg/dL 8.5-10 .1 normal Not Available [address] [place], [address] 03/05/2024 17:45:19 03/05/20 24 03/05/2024 COMPR EHENS BEBE METAB OLIC PANEL glucose 88 mg/dL 74-106 normal Not Available Barrie gomez [address] [place], [address] 03/05/2024 17:45:19 03/05/20 24 03/05/2024 COMPR EHENS BEBE METAB OLIC PANEL BUN 24 mg/dL 7-18 high Not Available Barrie gomez [address] [place], [address] 03/05/2024 17:45:19 03/05/20 24 03/05/2024 COMPR EHENS BEBE METAB OLIC PANEL creatinine 1.1 mg/dL 0.70-1 .30 normal Not Available [address] [place], [address] 03/05/2024 17:45:19 03/05/20 24 03/05/2024 COMPR EHENS [...] young er-ag ed adult s. Not Available [address] [place], [address] 03/05/2024 17:45:19 03/05/20 24 03/05/2024 COMPR EHENS BEBE METAB OLIC PANEL total protein 7.3 g/dL 6.4-8. 2 normal Not Available [address] [place], [address] 03/05/2024 17:45:19 03/05/20 24 03/05/2024 COMPR EHENS BEBE METAB OLIC PANEL albumin 4.1 g/dL 3.4-5. 0 normal Not Available [address] [place], [address] 03/05/2024 17:45:19 03/05/20 24 03/05/2024 COMPR EHENS BEBE METAB OLIC PANEL bilirubin, total 0.22 mg/dL 0.2-1. 0 normal Not Available [address] [place], [address] 03/05/2024 17:45:19 03/05/20 24 03/05/2024 COMPR EHENS BEBE METAB OLIC PANEL alk phos 124 U/L 46-116 high Not Available [address] [place], [address] 03/05/2024 17:45:19 03/05/20 24 03/05/2024 COMPR EHENS BEBE METAB OLIC PANEL sodium 142 mmol/ L 136-14 5 normal Not Available [address] [place], [address] 03/05/2024 17:45:19 03/05/20 24 03/05/2024 COMPR EHENS BEBE METAB OLIC PANEL potassium 3.7 mmol/ L 3.5-5. 1 normal Not Available [address] [place], [address] 03/05/2024 17:45:19 03/05/20 24 03/05/2024 COMPR EHENS BEBE METAB OLIC PANEL chloride 106 mmol/ L 98-107 normal Not Available [address] [place], [address] 03/05/2024 17:45:19 03/05/20 24 03/05/2024 COMPR EHENS BEBE METAB OLIC PANEL CO2 26.0 mmol/ L 21.0-3 2.0 normal Not Available [address] [place], [address] 03/05/2024 17:45:19 03/05/20 24 03/05/2024 COMPR EHENS BEBE METAB OLIC PANEL anion gap 10.0 mmol/ L 3-11 normal Not Available [address] [place], [address] 03/05/2024 17:45:19 03/05/20 24 03/05/2024 COMPR EHENS BEBE METAB OLIC PANEL AST 29 U/L 15-37 normal Not Available Barrie gomez [address] [place], [address] 03/05/2024 17:45:19 03/05/20 24 03/05/2024 COMPR EHENS BEBE METAB OLIC PANEL ALT 67 U/L 16-63 high Not Available Barrie gomez [address] [place], [address] 03/05/2024 17:45:19 03/05/20 24 03/05/2024 TSH (W/RE F FT4) TSH (w/ref FT4) < 0.01 uIU/m L 0.36-3 .74 low Not Available [address] [place], [address] 03/05/2024 16:36:06 03/05/20 24 03/05/2024 C-CHELSEA CTIVE PROTE IN C-reactive protein 0.52 mg/dL <or=0. 5 high Not Available [address] [place], [address] 03/05/2024 16:36:06 03/05/20 24 03/05/2024 TSH (W/RE F FT4) TSH (w/ref FT4) < 0.01 uIU/m L 0.36-3 .74 low Not Available [address] [place], [address] 03/05/2024 17:05:17 03/05/20 24 03/05/2024 FREE T4 free T4 1.23 NG/dL 0.76-1 .46 normal Not Available [address] [place], [address] 03/05/2024 17:45:21 03/05/20 24 03/05/2024 C-CHELSEA CTIVE PROTE IN C-reactive protein 0.52 mg/dL <or=0. 5 high Not Available [address] [place], [address] 03/05/2024 17:05:18 03/05/20 24 03/05/2024 LIPID 2 cholesterol 91 mg/dL <200 Not Available [address] [place], [address] 03/05/2024 17:45:20 03/05/20 24 03/05/2024 LIPID 2 triglyceride 117 mg/dL <150 Not Available [address] [place], [address] 03/05/2024 17:45:20 03/05/20 24 03/05/2024 LIPID 2 HDL cholesterol 40 mg/dL 40-60 Not Available [address] [place], [address] 03/05/2024 17:45:20 03/05/20 24 03/05/2024 LIPID 2 [...] 18 years or older . Not Available [address] [place], [address] 03/05/2024 17:45:20 03/05/20 24 03/05/2024 TSH (W/RE F FT4) TSH (w/ref FT4) < 0.01 uIU/m L 0.36-3 .74 low Not Available [address] [place], [address] 03/05/2024 17:45:20 03/05/20 24 03/05/2024 C-CHELSEA CTIVE PROTE IN C-reactive protein 0.52 mg/dL <or=0. 5 high Not Available [address] [place], [address] 03/05/2024 17:45:21 03/10/20 24 03/10/2024 BASIC METAB OLIC PANEL calcium 9.2 mg/dL 8.5-10 .1 normal Not Available [address] [place], [address] 03/10/2024 17:04:57 03/10/20 24 03/10/2024 BASIC METAB OLIC PANEL glucose 86 mg/dL 74-106 normal Not Available Barrie gomez [address] [place], [address] 03/10/2024 17:04:57 03/10/20 24 03/10/2024 BASIC METAB OLIC PANEL BUN 17 mg/dL 7-18 normal Not Available Barrie gomez [address] [place], [address] 03/10/2024 17:04:57 03/10/20 24 03/10/2024 BASIC METAB OLIC PANEL creatinine 0.9 mg/dL 0.70-1 .30 normal Not Available [address] [place], [address] 03/10/2024 17:04:57 03/10/20 24 03/10/2024 BASIC METAB [...] young er-ag ed adult s. Not Available [address] [place], [address] 03/10/2024 17:04:57 03/10/20 24 03/10/2024 BASIC METAB OLIC PANEL sodium 140 mmol/ L 136-14 5 normal Not Available [address] [place], [address] 03/10/2024 17:04:57 03/10/20 24 03/10/2024 BASIC METAB OLIC PANEL potassium 4.1 mmol/ L 3.5-5. 1 normal Not Available [address] [place], [address] 03/10/2024 17:04:57 03/10/20 24 03/10/2024 BASIC METAB OLIC PANEL chloride 104 mmol/ L 98-107 normal Not Available [address] [place], [address] 03/10/2024 17:04:57 03/10/20 24 03/10/2024 BASIC METAB OLIC PANEL CO2 27.6 mmol/ L 21.0-3 2.0 normal Not Available [address] [place], [address] 03/10/2024 17:04:57 03/10/20 24 03/10/2024 BASIC METAB OLIC PANEL anion gap 8.4 mmol/ L 3-11 normal Not Available [address] [place], [address] 03/10/2024 17:04:57 03/10/20 24 03/10/2024 URINA LYSIS color Yellow yellow Not Available Barrie gomez [address] [place], [address] 03/10/2024 18:14:16 03/10/20 24 03/10/2024 URINA LYSIS clarity Clear clear Not Available Barrie gomez [address] [place], [address] 03/10/2024 18:14:16 03/10/20 24 03/10/2024 URINA LYSIS specific gravity 1.020 1.005- 1.025 normal Not Available [address] [place], [address] 03/10/2024 18:14:16 03/10/20 24 03/10/2024 URINA LYSIS pH 5.5 5-8 normal Not Available Barrie gomez [address] [place], [address] 03/10/2024 18:14:16 03/10/20 24 03/10/2024 URINA LYSIS leukocyte esterase Negati ve negati ve Not Available [address] [place], [address] 03/10/2024 18:14:16 03/10/20 24 03/10/2024 URINA LYSIS nitrite Negati ve negati ve Not Available [address] [place], [address] 03/10/2024 18:14:16 03/10/20 24 03/10/2024 URINA LYSIS protein Negati ve mg/dL neg-tr mike Not Available [address] [place], [address] 03/10/2024 18:14:16 03/10/20 24 03/10/2024 URINA LYSIS glucose Negati ve mg/dL negati ve Not Available [address] [place], [address] 03/10/2024 18:14:16 03/10/20 24 03/10/2024 URINA LYSIS ketones Negati ve mg/dL negati ve Not Available [address] [place], [address] 03/10/2024 18:14:16 03/10/20 24 03/10/2024 URINA LYSIS urobilinogen 0.2 mg/dL up to 0.2 Not Available [address] [place], [address] 03/10/2024 18:14:16 03/10/20 24 03/10/2024 URINA LYSIS bilirubin Negati ve negati ve Not Available [address] [place], [address] 03/10/2024 18:14:16 03/10/20 24 03/10/2024 URINA LYSIS blood Negati ve negati ve Not Available [address] [place], [address] 03/10/2024 18:14:16 03/10/20 24 03/13/2024 FREE THYRO XINE INDEX thyroxine total 10.8 mcg/d L 4.5 - 11.7 Not Available [address] [place], [address] 03/15/2024 08:25:07 03/10/20 24 03/13/2024 FREE THYRO XINE INDEX thyroxine binding capacity 1.1 tbi 0.8 - 1.3 Not Available [address] [place], [address] 03/15/2024 08:25:07 03/10/20 24 03/13/2024 FREE THYRO XINE INDEX free thyroxine index 9.8 mcg/d L 4.8 - 12.7 Test Perfo rmed by: [facility] [address], [place] [address] Lab Direc tor: Rosita Oreilly nn Ph.D. ; [facility]# [id number] Not Available [address] [place], [address] 03/15/2024 08:25:07 03/10/2003/10/2024 BASIC METAB OLIC PANEL calcium 9.2 mg/dL 8.5-10 .1 normal Not Available [address] [place], [address] 03/16/2024 03:04:04 03/10/2003/10/2024 BASIC METAB OLIC PANEL glucose 86 mg/dL 74-106 normal Not Available Barrie gomez [address] [place], [address] 03/16/2024 03:04:04 03/10/2003/10/2024 BASIC METAB OLIC PANEL BUN 17 mg/dL 7-18 normal Not Available Barrie gomez [address] [place], [address] 03/16/2024 03:04:04 03/10/2003/10/2024 BASIC METAB OLIC PANEL creatinine 0.9 mg/dL 0.70-1 .30 normal Not Available [address] [place], [address] 03/16/2024 03:04:04 03/10/2003/10/2024 BASIC METAB OLIC PANEL [...] young er-ag ed adult s. Not Available [address] [place], [address] 03/16/2024 03:04:04 03/10/2003/10/2024 BASIC METAB OLIC PANEL sodium 140 mmol/ L 136-14 5 normal Not Available [address] [place], [address] 03/16/2024 03:04:04 03/10/2003/10/2024 BASIC METAB OLIC PANEL potassium 4.1 mmol/ L 3.5-5. 1 normal Not Available [address] [place], [address] 03/16/2024 03:04:04 03/10/2003/10/2024 BASIC METAB OLIC PANEL chloride 104 mmol/ L 98-107 normal Not Available [address] [place], [address] 03/16/2024 03:04:04 03/10/2003/10/2024 BASIC METAB OLIC PANEL CO2 27.6 mmol/ L 21.0-3 2.0 normal Not Available [address] [place], [address] 03/16/2024 03:04:04 03/10/2003/10/2024 BASIC METAB OLIC PANEL anion gap 8.4 mmol/ L 3-11 normal Not Available [address] [place], [address] 03/16/2024 03:04:04 03/10/2003/10/2024 URINA LYSIS color Yellow yellow Not Available Barrie gomez [address] [place], [address] 03/16/2024 03:04:07 03/10/2003/10/2024 URINA LYSIS clarity Clear clear Not Available Barrie gomez [address] [place], [address] 03/16/2024 03:04:07 03/10/2003/10/2024 URINA LYSIS specific gravity 1.020 1.005- 1.025 normal Not Available [address] [place], [address] 03/16/2024 03:04:07 03/10/20 24 03/10/2024 URINA LYSIS pH 5.5 5-8 normal Not Available Barrie gomez [address] [place], [address] 03/16/2024 03:04:07 03/10/2003/10/2024 URINA LYSIS leukocyte esterase Negati ve negati ve Not Available [address] [place], [address] 03/16/2024 03:04:07 03/10/2003/10/2024 URINA LYSIS nitrite Negati ve negati ve Not Available [address] [place], [address] 03/16/2024 03:04:07 03/10/2003/10/2024 URINA LYSIS protein Negati ve mg/dL neg-tr mike Not Available [address] [place], [address] 03/16/2024 03:04:07 03/10/2003/10/2024 URINA LYSIS glucose Negati ve mg/dL negati ve Not Available [address] [place], [address] 03/16/2024 03:04:07 03/10/2003/10/2024 URINA LYSIS ketones Negati ve mg/dL negati ve Not Available [address] [place], [address] 03/16/2024 03:04:07 03/10/2003/10/2024 URINA LYSIS urobilinogen 0.2 mg/dL up to 0.2 Not Available [address] [place], [address] 03/16/2024 03:04:07 03/10/20 24 03/10/2024 URINA LYSIS bilirubin Negati ve negati ve Not Available [address] [place], [address] 03/16/2024 03:04:07 03/10/2003/10/2024 URINA LYSIS blood Negati ve negati ve Not Available [address] [place], [address] 03/16/2024 03:04:07 06/13/20 24 06/13/2024 SODIU M sodium 125 mmol/ L 136-14 5 low Not Available [address] [place], [address] 06/13/2024 23:39:16 06/13/20 24 06/13/2024 SODIU M sodium 122 mmol/ L 136-14 5 critical low Criti zurdo value repor ivana to and readb ack from OLINDA [facility] (S[employer]IOR PRODUCT CONSULTANT) at 2222 06/13 by LAB.I TI Resul t verif ied by repea t guillermo sis Not Available [address] [place], [address] 06/13/2024 22:28:11 06/13/20 24 06/13/2024 URINA LYSIS color Yellow yellow Not Available Barrie gomez [address] [place], [address] 06/13/2024 20:53:56 06/13/2006/13/2024 URINA LYSIS clarity Clear clear Not Available Barrie gomez [address] [place], [address] 06/13/2024 20:53:56 06/13/20 24 06/13/2024 URINA LYSIS specific gravity <= 1.005 1.005- 1.025 normal Not Available [address] [place], [address] 06/13/2024 20:53:56 06/13/20 24 06/13/2024 URINA LYSIS pH 5.0 5-8 normal Not Available Barrie gomez [address] [place], [address] 06/13/2024 20:53:56 06/13/20 24 06/13/2024 URINA LYSIS leukocyte esterase Negati ve negati ve Not Available [address] [place], [address] 06/13/2024 20:53:56 06/13/20 24 06/13/2024 URINA LYSIS nitrite Negati ve negati ve Not Available [address] [place], [address] 06/13/2024 20:53:56 06/13/20 24 06/13/2024 URINA LYSIS protein Negati ve mg/dL neg-tr mike Not Available [address] [place], [address] 06/13/2024 20:53:56 06/13/20 24 06/13/2024 URINA LYSIS glucose Negati ve mg/dL negati ve Not Available [address] [place], [address] 06/13/2024 20:53:56 06/13/20 24 06/13/2024 URINA LYSIS ketones Negati ve mg/dL negati ve Not Available [address] [place], [address] 06/13/2024 20:53:56 06/13/20 24 06/13/2024 URINA LYSIS urobilinogen 0.2 mg/dL up to 0.2 Not Available [address] [place], [address] 06/13/2024 20:53:56 06/13/20 24 06/13/2024 URINA LYSIS bilirubin Negati ve negati ve Not Available [address] [place], [address] 06/13/2024 20:53:56 06/13/20 24 06/13/2024 URINA LYSIS blood Negati ve negati ve Not Available [address] [place], [address] 06/13/2024 20:53:56 06/13/20 24 06/16/2024 ZONIS AMIDE zonisamide 17 mcg/m L 10-40 ----- ----- ----- ----A DDITI ONAL INFOR MATIO N---- ----- ----- ----- This test was devel oped and its perfo rmanc e cristina cteri stics deter mined by [facility] in a elidia r consi stent with JEANNIE chanel ts. This test has not been clear ed or appro elly by the U.S. Food and Drug Admin istra tion. Test Perfo rmed by: [facility] [address], [place] [address] Lab Direc tor: Rosita Oreilly nn Ph.D. ; [place]# [id number] Not Available [address] [place], [address] 06/17/2024 04:46:05 06/13/20 24 06/13/2024 MAGNE SIUM magnesium 2.1 mg/dL 1.8-2. 4 normal Not Available [address] [place], [address] 06/13/2024 21:12:58 06/13/20 24 06/13/2024 COMPR EHENS BEBE METAB OLIC PANEL calcium 8.2 mg/dL 8.5-10 .1 low Not Available [address] [place], [address] 06/13/2024 21:12:57 06/13/20 24 06/13/2024 COMPR EHENS BEBE METAB OLIC PANEL glucose 60 mg/dL 74-106 low Not Available [facility] [address] [place], [address] 06/13/2024 21:12:57 06/13/20 24 06/13/2024 COMPR EHENS BEBE METAB OLIC PANEL BUN 15 mg/dL 7-18 normal Not Available [address] [place], [address] 06/13/2024 21:12:57 06/13/20 24 06/13/2024 COMPR EHENS BEBE METAB OLIC PANEL creatinine 1.1 mg/dL 0.70-1 .30 normal Not Available [address] [place], [address] 06/13/2024 21:12:57 06/13/20 24 06/13/2024 COMPR EHENS [...] young er-ag ed adult s. Not Available [address] [place], [address] 06/13/2024 21:12:57 06/13/20 24 06/13/2024 COMPR EHENS BEBE METAB OLIC PANEL total protein 8.1 g/dL 6.4-8. 2 normal Not Available [address] [place], [address] 06/13/2024 21:12:57 06/13/20 24 06/13/2024 COMPR EHENS BEBE METAB OLIC PANEL albumin 4.1 g/dL 3.4-5. 0 normal Not Available [address] [place], [address] 06/13/2024 21:12:57 06/13/20 24 06/13/2024 COMPR EHENS BEBE METAB OLIC PANEL bilirubin, total 0.59 mg/dL 0.2-1. 0 normal Not Available [address] [place], [address] 06/13/2024 21:12:57 06/13/20 24 06/13/2024 COMPR EHENS BEBE METAB OLIC PANEL alk phos 132 U/L 46-116 high Not Available [address] [place], [address] 06/13/2024 21:12:57 06/13/20 24 06/13/2024 COMPR EHENS BEBE METAB OLIC PANEL sodium 121 mmol/ L 136-14 5 critical low Criti zurdo value repor ivana to and readb ack from LEILANI STOVALL (RN), ER at 2105 06/13 by LAB.I TI Resul t verif ied by repea t guillermo sis Not Available [address] [place], [address] 06/13/2024 21:12:57 06/13/20 24 06/13/2024 COMPR EHENS BEBE METAB OLIC PANEL potassium 4.2 mmol/ L 3.5-5. 1 normal Not Available [address] [place], [address] 06/13/2024 21:12:57 06/13/20 24 06/13/2024 COMPR EHENS BEBE METAB OLIC PANEL chloride 86 mmol/ L 98-107 low Not Available [address] [place], [address] 06/13/2024 21:12:57 06/13/20 24 06/13/2024 COMPR EHENS BEBE METAB OLIC PANEL CO2 22.6 mmol/ L 21.0-3 2.0 normal Not Available [address] [place], [address] 06/13/2024 21:12:57 06/13/20 24 06/13/2024 COMPR EHENS BEBE METAB OLIC PANEL anion gap 12.4 mmol/ L 3-11 high Not Available [address] [place], [address] 06/13/2024 21:12:57 06/13/20 24 06/13/2024 COMPR EHENS BEBE METAB OLIC PANEL AST 23 U/L 15-37 normal Not Available [facility] [address] [place], [address] 06/13/2024 21:12:57 06/13/20 24 06/13/2024 COMPR EHENS BEBE METAB OLIC PANEL ALT 59 U/L 16-63 normal Not Available Barrie [address] [place], [address] 06/13/2024 21:12:57 06/13/20 24 06/13/2024 COMPL ETE BLOOD COUNT W/DIF F WBC 6.66 10_3/ uL 4.4-10 .8 normal Not Available [address] [place], [address] 06/13/2024 21:04:58 06/13/20 24 06/13/2024 COMPL ETE BLOOD COUNT W/DIF F RBC 5.25 10_6/ uL 4.36-5 .78 normal Not Available [address] [place], [address] 06/13/2024 21:04:58 06/13/20 24 06/13/2024 COMPL ETE BLOOD COUNT W/DIF F HGB 12.9 g/dL 13.5-1 7.5 low Not Available [address] [place], [address] 06/13/2024 21:04:58 06/13/20 24 06/13/2024 COMPL ETE BLOOD COUNT W/DIF F HCT 38.5 % 40.0-5 0.0 low Not Available [address] [place], [address] 06/13/2024 21:04:58 06/13/20 24 06/13/2024 COMPL ETE BLOOD COUNT W/DIF F MCV 73 fL 80-95 low Not Available [address] [place], [address] 06/13/2024 21:04:58 06/13/20 24 06/13/2024 COMPL ETE BLOOD COUNT W/DIF F MCH 24.6 pg 27.0-3 3.0 low Not Available [address] [place], [address] 06/13/2024 21:04:58 06/13/20 24 06/13/2024 COMPL ETE BLOOD COUNT W/DIF F MCHC 33.5 % 32.0-3 6.0 normal Not Available [address] [place], [address] 06/13/2024 21:04:58 06/13/20 24 06/13/2024 COMPL ETE BLOOD COUNT W/DIF F RDW 13.6 % 11.8-1 4.1 normal Not Available [address] [place], [address] 06/13/2024 21:04:58 06/13/20 24 06/13/2024 COMPL ETE BLOOD COUNT W/DIF F platelet count 260 10_3/ uL 130-40 0 normal Not Available [address] [place], [address] 06/13/2024 21:04:58 06/13/20 24 06/13/2024 COMPL ETE BLOOD COUNT W/DIF F MPV 8.9 fL 8.0-11 .0 normal Not Available [address] [place], [address] 06/13/2024 21:04:58 06/13/20 24 06/13/2024 COMPL ETE BLOOD COUNT W/DIF F neutrophils % 61.9 % Not Available [address] [place], [address] 06/13/2024 21:04:58 06/13/20 24 06/13/2024 COMPL ETE BLOOD COUNT W/DIF F lymphocytes % 26.6 % Not Available [address] [place], [address] 06/13/2024 21:04:58 06/13/20 24 06/13/2024 COMPL ETE BLOOD COUNT W/DIF F monocytes % 8.1 % Not Available [address] [place], [address] 06/13/2024 21:04:58 06/13/20 24 06/13/2024 COMPL ETE BLOOD COUNT W/DIF F eosinophils % 1.1 % Not Available [address] [place], [address] 06/13/2024 21:04:58 06/13/20 24 06/13/2024 COMPL ETE BLOOD COUNT W/DIF F basophils % 0.3 % Not Available [address] [place], [address] 06/13/2024 21:04:58 06/13/20 24 06/13/2024 COMPL ETE BLOOD COUNT W/DIF F immature grans % 2.0 % Not Available [address] [place], [address] 06/13/2024 21:04:58 06/13/20 24 06/13/2024 COMPL ETE BLOOD COUNT W/DIF F nucleated RBC 0.0 % 0.0-0. 3 normal Not Available [address] [place] [facility] [place], [address] 06/13/2024 21:04:58 06/13/20 24 06/13/2024 COMPL ETE BLOOD COUNT W/DIF F absolute neutrophil count 4.13 10_3/ uL 1.2-6. 7 normal Not Available [address] [place], [address] 06/13/2024 21:04:58 06/13/20 24 06/13/2024 COMPL ETE BLOOD COUNT W/DIF F absolute lymphocyte count 1.77 10_3/ uL 1.2-3. 4 normal Not Available [address] [place], [address] 06/13/2024 21:04:58 06/13/20 24 06/13/2024 COMPL ETE BLOOD COUNT W/DIF F absolute monocyte count 0.54 10_3/ uL 0.1-0. 8 normal Not Available [address] [place], [address] 06/13/2024 21:04:58 06/13/20 24 06/13/2024 COMPL ETE BLOOD COUNT W/DIF F absolute eosinophil count 0.07 10_3/ uL 0.0-0. 7 normal Not Available [address] [place], [address] 06/13/2024 21:04:58 06/13/20 24 06/13/2024 COMPL ETE BLOOD COUNT W/DIF F absolute basophil count 0.02 10_3/ uL 0.0-0. 2 normal Not Available [address] [place], [address] 06/13/2024 21:04:58 06/13/20 24 06/13/2024 COMPL ETE BLOOD COUNT W/DIF F diff comment RBC Morph Review ed Not Available [address] [place], [address] 06/13/2024 21:04:58 06/13/20 24 06/13/2024 COMPL ETE BLOOD COUNT W/DIF F RBC morphology See Below Not Available [address] [place], [address] 06/13/2024 21:04:58 06/13/20 24 06/13/2024 COMPL ETE BLOOD COUNT W/DIF F microcytosis 1+ Not Available [address] [place], [address] 06/13/2024 21:04:58 06/13/20 06/13/2024 PROTH ROMBI N TIME prothrombin time 11.0 sec 9.1-11 .1 normal Not Available [address] [place], [address] 06/13/2024 21:04:56 06/13/20 24 06/13/2024 PROTH ROMBI N TIME INR 1.1 0.9-1. 1 normal Recom ivon d INR thera peuti c range s for orall y admin ister ed drugs are as follo ws: -Elias dard Inten sity 2.0 to 3.0 -High er Inten sity 3.0 to 4.5 Not Available [address] [place], [address] 06/13/2024 21:04:56 06/28/20 24 06/28/2024 BASIC METAB OLIC PANEL calcium 9.0 mg/dL 8.5-10 .1 normal Not Available [address] [place] [facility] [place], [address] 06/28/2024 16:50:30 06/28/20 24 06/28/2024 BASIC METAB OLIC PANEL glucose 82 mg/dL 74-106 normal Not Available Barrie gomez [address] [place], [address] 06/28/2024 16:50:30 06/28/20 24 06/28/2024 BASIC METAB OLIC PANEL BUN 26 mg/dL 7-18 high Not Available Barrie gomez [address] [place], [address] 06/28/2024 16:50:30 06/28/20 24 06/28/2024 BASIC METAB OLIC PANEL creatinine 1.1 mg/dL 0.70-1 .30 normal Not Available [address] [place], [address] 06/28/2024 16:50:30 06/28/20 24 06/28/2024 BASIC METAB [...] young er-ag ed adult s. Not Available [address] [place], [address] 06/28/2024 16:50:30 06/28/20 24 06/28/2024 BASIC METAB OLIC PANEL sodium 144 mmol/ L 136-14 5 normal Not Available [address] [place], [address] 06/28/2024 16:50:30 06/28/20 24 06/28/2024 BASIC METAB OLIC PANEL potassium 4.0 mmol/ L 3.5-5. 1 normal Not Available [address] [place], [address] 06/28/2024 16:50:30 06/28/20 24 06/28/2024 BASIC METAB OLIC PANEL chloride 107 mmol/ L 98-107 normal Not Available [address] [place], [address] 06/28/2024 16:50:30 06/28/20 24 06/28/2024 BASIC METAB OLIC PANEL CO2 25.0 mmol/ L 21.0-3 2.0 normal Not Available [address] [place], [address] 06/28/2024 16:50:30 06/28/20 24 06/28/2024 BASIC METAB OLIC PANEL anion gap 12.0 mmol/ L 3-11 high Not Available [address] [place], [address] 06/28/2024 16:50:30 07/15/19 25 07/15/2024 SODIU M sodium 141 mmol/ L 136-14 5 normal Not Available [address] [place], [address] 07/16/2024 16:14:24 07/15/19 25 07/15/2024 SODIU M sodium 141 mmol/ L 136-14 5 normal Not Available [address] [place], [address] 07/15/2024 16:16:44 07/22/1907/22/2024 BASIC METAB OLIC PANEL calcium 8.6 mg/dL 8.5-10 .1 normal Not Available [address] [place], [address] 07/22/2024 15:40:42 07/22/19 25 07/22/2024 BASIC METAB OLIC PANEL glucose 80 mg/dL 74-106 normal Not Available Barrie gomez [address] [place], [address] 07/22/2024 15:40:42 07/22/19 25 07/22/2024 BASIC METAB OLIC PANEL BUN 17 mg/dL 7-18 normal Not Available Barrie gomez [address] [place], [address] 07/22/2024 15:40:42 07/22/19 25 07/22/2024 BASIC METAB OLIC PANEL creatinine 1.0 mg/dL 0.70-1 .30 normal Not Available [address] [place], [address] 07/22/2024 15:40:42 07/22/19 25 07/22/2024 BASIC METAB [...] young er-ag ed adult s. Not Available [address] [place], [address] 07/22/2024 15:40:42 07/22/19 25 07/22/2024 BASIC METAB OLIC PANEL sodium 141 mmol/ L 136-14 5 normal Not Available [address] [place], [address] 07/22/2024 15:40:42 07/22/19 25 07/22/2024 BASIC METAB OLIC PANEL potassium 3.8 mmol/ L 3.5-5. 1 normal Not Available [address] [place], [address] 07/22/2024 15:40:42 07/22/19 25 07/22/2024 BASIC METAB OLIC PANEL chloride 105 mmol/ L 98-107 normal Not Available [address] [place], [address] 07/22/2024 15:40:42 07/22/19 25 07/22/2024 BASIC METAB OLIC PANEL CO2 28.4 mmol/ L 21.0-3 2.0 normal Not Available [address] [place], [address] 07/22/2024 15:40:42 07/22/19 25 07/22/2024 BASIC METAB OLIC PANEL anion gap 7.6 mmol/ L 3-11 normal Not Available [address] [place], [address] 07/22/2024 15:40:42 07/30/19 25 07/30/2024 SODIU M sodium 133 mmol/ L 136-14 5 low Not Available [address] [place], [address] 07/30/2024 16:05:14 07/30/19 25 07/30/2024 SODIU M sodium 133 mmol/ L 136-14 5 low Not Available [address] [place], [address] 07/30/2024 15:23:01 08/03/19 25 08/03/2024 SODIU M sodium 140 mmol/ L 136-14 5 normal Not Available [address] [place], [address] 08/03/2024 14:49:02 08/03/19 25 08/03/2024 SODIU M sodium 140 mmol/ L 136-14 5 normal Not Available [address] [place], [address] 08/03/2024 13:40:48 03/21/20 24 08/04/2019 imagi ng/di [...] Available 03/21 21:53:43 06/13/20 24 06/13/2024 vrad laurence bui Name: Miguel Angel Burgos Unit #: [id number] Loc: ER Orderi ng Provid er: Accholly t #: [id number] Status : PRE ER Primar y Care Provid er: Jose More barbie Date of Exam: 02/27 Sex: M [...] of the extra- axial space along the sugar drier ior midlin e of the sugar drier ior fossa presum ably repres ents promin [...] sm would be consid ered primar mirela; rodolfoeve r, an unusua l large aneury sm is not exclud ed by the CT exam. 2. No acute intrac ranial hemorr pamela or midlin e shift. 3. 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 Dictat ed and Authen ticate d by: Jaime Ceballos MD. Orderi ng:[facility] Arcadio Dougherty MD Access ion#=[id number] Ordere d By: CC: ------ ------ [...] at the addres s above. Thank- you. [email or web address] [facility] [address] [place], [address] 06/14/2024 13:39:40 06/14/20 24 06/14/2024 CT imagi ng repor t Jose t Name: Miguel Angel Burgos Unit #: [id number] Loc: ER Orderi ng Provid er: Digeo Winchester M.D. t #: [id number] Status : DEP ER Primar y [...] ---- Dictat ed By: Otto Herrera M.D. 0857 0857 Transc ribed By: Rodolfo Herrera MD 0857 This is privil eged, confid ential inform ation intend ed only for the provid er named. Any use or distri bution by any person other than this provid er is strict ly prohib ited. If you receiv e this report in error, please notify us immsaji resendiz at and return the origin al report to us at the addres s above. Thank- you. INTERFACE [facility] [address], [place], [address] 06/14/2024 09:01:48 Result Notes None recorded. Problems Name Problem SNOMED Code Status Onset Date Resolution Date Notes Provider Name and Address Organization Details Recorded Time Hyponatr emia 19844700 Active [address], [place], [address] , [facility] 4 12:31:17 Mass lesion of brain 060998304 Active [address], [place], [address] , [facility] 4 17:54:43 Abscess of skin and/or subcutan eous tissue 43272474 Active [address], [place], [address] , 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 2016 Problem Code: H47.20; Problem Code Type: ICD-10; Not Available [facility] 3 04:21:52 Gastriti s 0656974 Active 2016 Problem Code: K29.70; Problem Code Type: ICD-10; Not Available [facility] 3 04:21:52 Urinary incontin ence 785676037 Active 2016 Problem Code: R32; Problem Code Type: ICD-10; Not Available [facility] 3 04:21:52 Senile osteopor osis 35781532 Active 201602/22/20 21 - Comments only - [...] Code Type: ICD-10; Not Available [facility] 3 04:21:52 Pure hypergly ceridemi a 765320276 Active 201602/27/20 22 - Comments only - Ren Vaz MD - tolerati ng statin. However with elevated LFTs could consider cutting statin dose to see if helps LFTs. Problem Code: E78.1; Problem Code Type: ICD-10; Not Available [facility] 3 04:21:53 History of benign neoplasm of brain 163575774 Active 2016 Problem Code: Z86.011; Problem Code Type: ICD-10; Not Available [facility] 3 04:21:53 Insomnia 474251384 Active 201612/09/19 19 - Deterior ated - Subha Colon SERVICE INSPECTOR - Currentl y on trazodon e, not effectiv e. See above. 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 Cycloben zaprine no longer effectiv e. Will change to baclofen 10mg TID. manager land will call in 1-2 weeks to report effectiv eness. Pain may be influenc ing increase d agitatio n and poor sleep. Problem Code: M24.50; Problem Code Type: ICD-10; Not Available [facility] 3 04:21:53 Amnesia 35059497 Active 2016 Problem Code: R41.3; Problem Code Type: ICD-10; Not Available [facility] 3 04:21:53 Hemipleg ia 11702059 Active 201602/22/20 21 - Comments only - Ren Vaz MD - Encourag ing increase in activty. I agree with PT. Problem Code: G81.90; Problem Code Type: ICD-10; Not Available [facility] 3 04:21:54 Red blood cell finding 929993988 Active 2017 Problem Code: R71.8; Problem Code Type: ICD-10; Not Available [facility] 3 04:21:54 Retentio n of urine 136264281 Active 201805/18/20 19 - Comments only - Subha Colon APRN - Suscepti ble to UTIs. They will return urine sample for testing. Problem Code: R33.9; Problem Code Type: ICD-10; Not Available [facility] 3 04:21:54 Restless ness and agitatio n 862946420 Active 2018 Problem Code: R45.1; Problem Code Type: ICD-10; Not Available [facility] 3 04:21:54 Seizure 78445457 Active 2018 Problem Code: R56.9; Problem Code Type: ICD-10; Not Available [facility] 3 04:21:54 Dyspnea 556337296 Completed 201806/01/2019 Problem Code: R06.02; Problem Code Type: ICD-10; Not Available [facility] 3 04:21:54 Acute upper respirat ory infectio n 78864073 Completed 201806/01/2019 05/18/20 19 - Comments only [...] Code Type: ICD-10; Not Available [facility] 3 04:21:55 Steatosi s of liver 812303012 Active 201903/03/20 23 - Comments only - Ren Vaz MD - Improved last year with weight loss. REcheck CBC/CMP with labs Problem Code: K76.0; Problem Code Type: ICD-10; Not Available [facility] 3 04:21:55 Adult health examinat ion [...] Code Type: ICD-10; Not Available [facility] 3 04:21:55 Bradycar hossein 83024265 Completed 201909/01/2019 08/25/19 20 - Comments only - Ren Vaz MD - Resolved after stopping metoprol ol. BP still okay, no hard indicati on for metoprol ol, so continue off this medicati on. Problem Code: R00.1; Problem Code Type: ICD-10; Not Available [facility] 3 04:21:55 Urticari a 833519654 Active 201908/14/19 21 - Comments only - Ren Vaz MD - irmpoved . continue higher dose H2 gui for now. Problem Code: L50.9; Problem Code Type: ICD-10; Not Available [facility] 3 04:21:55 Localize d eruption of skin 730811487 Completed 201904/26/2020 04/05/20 20 - Comments only - Ricarda Sanchez SUBSTATION INSPECTOR - Unclear etiology : possibly contact urticari [...] R21; Problem Code Type: ICD-10; Not Available [facility] 3 04:21:56 Anemia 575721756 Active 202008/20/19 22 - Comments only - Ren Vaz MD - This has been a stable chronic issue. We discusse d I iron stores actually normal, low TIBC suggests chronic disease cause. Continue to follow. Problem Code: D64.9; Problem Code Type: ICD-10; Not Available [facility] 3 04:21:56 Hypo-osm olality and or hyponatr emia 207284625 Active 202002/22/20 21 - Comments only - Ren Vaz MD - Doing well on fluid restrict ion, continue . Problem Code: E87.1; Problem Code Type: ICD-10; Not Available [facility] 3 04:21:56 Obesity 326567773 Active 2020 Problem Code: E66.9; Problem Code Type: ICD-10; Not Available [facility] 3 04:21:56 Furuncle of left axilla 69697897005 530852 Active 202003/14/20 21 - Comments only - [...] L02.422; Problem Code Type: ICD-10; Not Available [facility] 3 04:21:56 Trichoti rafita 04753313 Active 202102/27/20 22 - Comments only - Ren Vaz MD - Discusse d skin care, defer medicati on adjustme nts to psych Problem Code: F63.3; Problem Code Type: ICD-10; Not Available [facility] 3 04:21:56 Diabetes insipidu s 07201062 Active 201605/24/20 19 - Comments only - Subha Colon APRN - Will recheck sodium level. Problem Code: E23.2; Problem Code Type: ICD-10; Not Available [facility] 3 04:21:57 Hypopitu itarism 95785238 Active 2016 Problem Code: E23.0; Problem Code Type: ICD-10; Not Available [facility] 3 04:21:57 Hypothyr oidism 88051981 Active 201602/22/20 21 - Comments only - Ren Vaz MD - FT4 at goal, continue current supplume ntation Problem Code: E03.8; Problem Code Type: ICD-10; Not Available [facility] 3 04:21:57 History and physical examinat trae administ yaiml Completed 201807/09/2019 Problem Code: Z02.89; Problem Code Type: ICD-10; Not Available [facility] 3 04:21:58 Disorder of eye 311851409 Completed 201804/05/2019 Problem Code: H44.89; Problem Code Type: ICD-10; Not Available [facility] 3 04:21:59 Pain of left knee joint 68720189462 4107 Completed 201707/09/2019 Problem Code: M25.562; Problem Code Type: ICD-10; Not Available [facility] 3 04:21:59 Bleeding 518931927 Completed 202002/21/2021 Problem Code: R58; Problem Code Type: ICD-10; Not Available [facility] 3 04:21:59 Fever 086578537 Completed 201804/05/2019 Problem Code: R50.9; Problem Code Type: ICD-10; Not Available [facility] 3 04:21:59 Family history of diabetes mellitus 482784493 Completed 201607/09/2019 Problem Code: Z83.3; Problem Code Type: ICD-10; Not Available [facility] 3 04:22:00 Fever 623401482 Completed 201805/24/2019 Problem Code: R50.9; Problem Code Type: ICD-10; Not Available [facility] 3 04:22:00 Gastroes ophageal reflux disease without esophagi tis 803654068 Completed 201604/02/2023 Problem Code: K21.9; Problem Code Type: ICD-10; Not Available [facility] 3 04:22:00 Wheezing 61661417 Completed 201709/18/2018 Problem Code: R06.2; Problem Code Type: ICD-10; Not Available [facility] 3 04:22:00 High enzyme level in serum 430896622 Completed 201904/02/2023 02/27/20 22 - Comments only [...] Code Type: ICD-10; Not Available [facility] 3 04:22:01 Body mass index 30+ - obesity 121202483 Completed 202004/02/2023 Problem Code: Z68.34; Problem Code Type: ICD-10; Not Available [facility] 3 04:22:01 Disorder of intestin e 47177560 Completed 202008/14/2020 Problem Code: K63.9; Problem Code Type: ICD-10; Not Available [facility] 3 04:22:01 Screenin g for disorder Completed 201809/18/2018 Problem Code: Z13.9; Problem Code Type: ICD-10; Not Available [facility] 3 04:22:01 Spasm 52282910 Completed 201704/02/2023 08/25/19 20 - Comments only - Ren Vaz MD - Ongoing problem since CVA. Has neuro consult in october to consiide botox. For now try higher dose lorazepa m along with baclofen . Problem Code: R25.2; Problem Code Type: ICD-10; Not Available [facility] 3 04:22:02 Pain of right knee joint 49425060718 4100 Completed 201704/30/2018 Problem Code: M25.561; Problem Code Type: ICD-10; Not Available [facility] 3 04:22:02 Cough 37088965 Completed 201709/08/2019 Problem Code: R05; Problem Code Type: ICD-10; Not Available [facility] 3 04:22:02 Iron deficien cy anemia 25356910 Completed 201704/02/2023 Problem Code: D50.8; Problem Code Type: ICD-10; NAKIA SANTOS [address], [place], [address] , [facility] 4 09:14:59 Counseli odalis Completed 201812/08/2018 Problem Code: Z71.89; Problem Code Type: ICD-10; Not Available [facility] 3 04:22:03 Disorder of tooth developm ent 308150806 Completed 201808/14/2020 Problem Code: K00.9; Problem Code Type: ICD-10; Not Available [facility] 3 04:22:03 Hypocalc emia 5084763 Completed 201910/25/2019 Problem Code: E83.51; Problem Code Type: ICD-10; Not Available [facility] 3 04:22:03 Hyperosm olality and or hypernat remia 430105055 Completed 201908/14/2020 Problem Code: E87.0; Problem Code Type: ICD-10; Not Available [facility] 3 04:22:04 Testicul ar hypofunc tion 137163993 Completed 201604/02/2023 Problem Code: E29.1; Problem Code Type: ICD-10; Not Available [facility] 3 04:22:04 Seasonal allergic rhinitis 634948782 Completed 201904/02/2023 10/25/19 20 - Comments only - Ren Vaz MD - try H1 block Problem Code: J30.2; Problem Code Type: ICD-10; Not Available [facility] 3 04:22:05 Wheezing [id number] Completed 201805/24/2019 Problem Code: R06.2; Problem Code Type: ICD-10; Not Available [facility] 3 04:22:05 Seizure [id number] Completed 201607/09/2019 Problem Code: R56.9; Problem Code Type: ICD-10; Not Available [facility] 3 04:22:05 Chronic excoriat ion of skin 803942145 Active [address], [facility] [address] , [facility] 4 09:12:56 Non-alco holic fatty liver disease Active [address], [place], [address] , [facility] 4 09:14:30 Iron deficien cy anemia 61922209 Active 2023 Problem Code: D50.8; Problem Code Type: ICD-10; NAKIA SANT[address] Dr, [place], [address] , [facility] 4 09:14:59 Pruritic disorder 807784365 Active [address], [facility] [address] , [facility] 09:21:10 Seizure disorder 081269974 Active 2023 NAKIA SANTOS [address], [place], [address] , [facility] 10:59:32 Finding of frequenc y of urinatio n 186502656 Active 2023 NAKIA SANTOS [address], [place], [address] , [facility] 11:23:00 Notes:*Problem Name: Blindne ss - both [...] available 03/21/2024 21:53:43 06/13/2024 vrad report completed [email or web address] [address] [place], [address] 06/14/2024 13:39:40 06/14/2024 CT imaging report completed INTERFACE [address] [place], [address] 06/14/2024 09:01:48 Procedure Notes None recorded. Medical Equipment None Reported. Allergies Allergen ID Allergen Name Allergen Category Reaction Reaction Severity Criticality Documentation Date Start Date Code Code System Note Provider Name and Address Organization Details Recorded Time 88721 Lopid medicatio n Not available Not available Not available 05/04/2024 9 RxNorm Ashley England MA [place], [place] - [facility]. 10:58:41 Medications Name Sig Start Date Stop [...] active Not Available Not Available Not Avdoroteo labmerari melatonin 10 mg tablet 1 tab [...] DateTime 4 167.157 4 cm 33.5 kg/m2 64694.1 8 g 97.7 [degF] 96 % 96 % 83 /min 118 mm[Hg] 82 mm[Hg] KRISTYN SINGH MA [place] - [facility]. 4 11:07:26 Date Recorded Body height Body mass index (BMI) Body weight Body temperature Oxygen saturation Oxygen saturation in Arterial blood by Pulse oximetry Heart rate Respiratory rate Systolic blood pressure Diastolic blood pressure Provider Name and Address Organization Details Last Updated DateTime 4 167.157 4 cm 33.3 kg/m2 52384.4 4 g 97.7 [degF] 97 % 97 % 92 /min 18 /min 110 mm[Hg] 76 mm[Hg] Ashley England MA [facility], [facility] 4 10:58:12 Date Recorded Body height Body mass index (BMI) Body weight Body temperature Oxygen saturation Oxygen saturation in Arterial blood by Pulse oximetry Heart rate Systolic blood pressure Diastolic blood pressure Provider Name and Address Organization Details Last Updated DateTime 4 167.157 4 cm 34.3 kg/m2 65873.9 9 g 97.2 [degF] 97 % 97 % 80 /min 128 mm[Hg] 70 mm[Hg] KRISTYN SINGH MA [facility], [facility] 4 11:35:36 Date Recorded Body height Body mass index (BMI) Body weight Body temperature Oxygen saturation Oxygen saturation in Arterial blood by Pulse oximetry Heart rate Systolic blood pressure Diastolic blood pressure Provider Name and Address Organization Details Last Updated DateTime 5 167.157 4 cm 31.5 kg/m2 02696.6 4 g 97.5 [degF] 100 % 100 % 96 /min 106 mm[Hg] 68 mm[Hg] KRISTYN SINGH MA [facility] 5 10:00:19 Date Recorded Body height Body mass index (BMI) Body weight Body temperature Oxygen saturation Oxygen saturation in Arterial blood by Pulse oximetry Heart rate Systolic blood pressure Diastolic blood pressure Provider Name and Address Organization Details Last Updated DateTime 5 167.157 4 cm 35.1 kg/m2 35651.3 9 g 97.3 [degF] 100 % 100 % 92 /min 132 mm[Hg] 72 mm[Hg] KRISTYN SINGH MA [facility], [facility] 5 10:30:05 Social History Question Answer Notes LastModified by Organizat ion Details LastModified Time Tobacco Smoking Status Never Smoker Ashley England MA null, [facility]. 05/04/2024 11:00:43 What Was The Date Of Your Most Recent Tobacco Screening? 05/04/2024 [email or web address] Information not available 05/04/2024 Has Tobacco Cessation Counseling Been Provided? Yes [email or web address] Information not available 05/04/2024 On What Date Was Tobacco Cessation Counseling Provided? 05/04/2024 [email or web address] Information not available 05/04/2024 Sex: Male Functional Status None recorded. Mental Status None recorded. Family History Nothing Reported Notes:*Problem: Mom had trever l failure Diabetes in the family Medical History No medical history recorded. Immunizations Vaccine Type Date Status Note Provider Nam e and Address Organization Details Recorded Time MMR 0 completed Not Available [facility] 05/16/2023 04:39:45 MMR 2 completed Not Available [facility] 05/16/2023 04:39:46 Tdap 1 completed Not Available [facility] 05/16/2023 04:39:47 Tdap 1 completed Not Available [facility] 05/16/2023 04:39:48 Influenza, split virus, quadrivalent, PF 9 completed Not Available [facility] 05/16/2023 04:39:48 Hib, unspecified formulation 1 completed Not Available [facility] 05/16/2023 04:39:48 Hib, unspecified formulation 1 completed Not Available [facility] 05/16/2023 04:39:49 Hib, unspecified formulation 2 completed Not Available [facility] 05/16/2023 04:39:49 Hib, unspecified formulation 1 completed Not Available [facility] 05/16/2023 04:39:49 DTaP 1 completed Not Available [facility] 05/16/2023 04:39:50 DTaP 1 completed Not Available [facility] 05/16/2023 04:39:50 DTaP 6 completed Not Available [facility] 05/16/2023 04:39:50 DTaP 1 completed Not Available [facility] 05/16/2023 04:39:50 DTaP 2 completed Not Available [facility] 05/16/2023 04:39:50 COVID-19, mRNA, LNP-S, PF, 100 mcg/0.5mL dose or 50 mcg/0.25mL dose 1 completed Not Available [facility] 05/16/2023 04:39:50 COVID-19, mRNA, LNP-S, PF, 100 mcg/0.5mL dose or 50 mcg/0.25mL dose 2 completed Not Available [facility] 05/16/2023 04:39:51 SARS-COV-2 (COVID-19) vaccine, UNSPECIFIED 1 completed Not Available [facility] 05/16/2023 04:39:52 SARS-COV-2 (COVID-19) vaccine, UNSPECIFIED 1 completed Not Available [facility] 05/16/2023 04:39:52 Hep B, unspecified formulation 3 completed Not Available [facility] 05/16/2023 04:39:52 Hep B, unspecified formulation 3 completed Not Available [facility] 05/16/2023 04:39:52 Hep B, unspecified formulation 3 completed Not Available [facility] 05/16/2023 04:39:52 influenza, unspecified formulation 4 completed Not Available [facility] 05/16/2023 04:39:53 polio, unspecified formulation 1 completed Not Available [facility] 05/16/2023 04:39:53 polio, unspecified formulation 1 completed Not Available [facility] 05/16/2023 04:39:54 polio, unspecified formulation 6 completed Not Available [facility] 05/16/2023 04:39:54 polio, unspecified formulation 1 completed Not Available [facility] 05/16/2023 04:39:54 polio, unspecified formulation 2 completed Not Available [facility] 05/16/2023 04:39:54 rabies, unspecified formulation 5 completed Not Available [facility] 05/16/2023 04:39:55 rabies, unspecified formulation 5 completed Not Available [facility] 05/16/2023 04:39:55 Influenza, split virus, trivalent, PF 12/23/202 4 completed NAKIA SANTOS [address], [place], [address], [facility] 06/29/2024 17:51:39 Influenza, split virus, quadrivalent, PF 3 completed Not Available [facility] 07/18/2023 05:33:06 COVID-19, mRNA, LNP-S, PF, kota-sucrose, 30 mcg/0.3 mL 3 completed Not Available [facility] 07/18/2023 05:33:07 Past Encounters Encounter ID Performer Location Encounter Start Date Encounter Closed Date Diagnosis/Indication Diagnosis SNOMED-CT Code Diagnosis ICD10 Code Diagnosis Note [id number] NAKIA SANTOS [facility] [address] [place] [address] 09/18/2023 08:30:46 09/18/2023 09:43:31 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 actively picking at skin with frequency. Advised covering during day when supervised and removing at night as I'm informed he's tried to eat band aids before at night. Chronic ex coriation of skin 357021313 T14.8XXA We will Rx pplx mupiricin in case of any signs of infection related to chronic picking at scabs. Non-alcoho lic fatty liver disease 5477164794 K76.0 Pt. with evidence on Ultrasound s which have been on yearly surveillan ce. We will check labs for liver health/ble eding risk as below in iron deficiency anemia orders. Iron defic iency anemia 51956010 D50.9 Will check labs as pt. picking leads to bleeding that seems a bit out of proportion to the scabs he is picking off. Pruritic disorder 994265 002 L29.9 We will make up to 2 tablets avialable at night of hydroxyzin e for pruritis. [id number] NAKIA SANTOS [facility] [address] [place] [address] 03/05/2024 10:55:01 03/05/2024 12:03:04 Finding of frequency of urination 129738214 R35.0 Will check urine. Pt. unable to urinate in office so cup given and caregiver will drop off. Restlessne ss and agitation 861891061 R45.1 We will increase his quetiapine from 150 mg ER qday to 200mg ER qday. Adult heal th examination 117405352 Z00.00 Hyperlipid emia screening 695564611 Z13.220 Hypothyroidism 47398604 E03.9 [id number] LAURIE RODGERS [address] [place] [address] 05/04/2024 09:55:01 05/04/2024 11:28:26 Cellulitis of right lower limb 1490890219 6965694 L03.115 33 year old male with onset [...] area is amenable to incision and drainage. [id number] NAKIA SANTOS [facility] [address] [place] [address] 06/28/2024 11:23:42 06/28/2024 12:54:45 Hyponatremia 28608848 E87.1 will recheck this lab. Currently following 2.5 L fluid restrictio n. No signs of excess fluid status on exam. Pt. at baseline from mental status viewpoint. Medlist reconciled . Active or passive immunization 038733981 Z23 Mass lesion of brain 422 645231 R22.0 Pt. to f/u with neurosurge ry for evolving 3.5cm mass [id number] NAKIA SANTOS [facility] [address] [place] [address] 07/15/2024 09:44:29 07/15/2024 10:32:19 Abscess of skin and/or subcutaneous tissue 89480216 L02.91 Pt. with abscess, about 5x10 cm along eliptical axis of left posterolat eral thigh, warm, ttp. Will start antibiotic s given pt. propensity to pick and current discomfort . Referred to wound care clinic for this and the other smaller ulceration on his right upper thigh. [id number] NAKIA SANTOS [facility] [address] [place] [address] 07/22/2024 10:14:28 07/22/2024 11:15:42 Abscess of skin and/or subcutaneous tissue 00317480 L02.91 Abscess area is improved with less redness circumfere ntially. Will continue Cephalexin for another 5 days. If infection worsens immediatel y after that, he may need GS referral for surgical excision/d rainage given the pt. comorbidit ies this would be a risk in the primary care office. Chronic ex coriation of skin 756783711 T14.8XXA We will Rx pplx mupiricin in case of any signs of infection related to chronic picking at scabs. Hyponatremia 34128567 E8 7.1 will recheck this lab. Currently [...] Member ID Guarantor Name 03/05/2024 1 [facility] ([employer]ICAID) Miguel Angel D Barrup [id number] Miguel Angel D Barrup 05/04/2024 1 [facility] ([employer]ICAID) Miguel Angel D Barrup [id number] Miguel Angel D Barrup 06/28/2024 1 [facility] ([employer]ICA[employer]) Miguel Angel D Barrup [id number] Miguel Angel D Barrup 07/15/2024 1 [facility] ([employer]ICA[employer]) Miguel Angel D Barrup [id number] Miguel Angel D Barrup 07/22/2024 1 [facility] ([employer]ICA[employer]) Miguel Angel D Barrup [id number] Miguel Angel D Barrup Notes Date Note [...] cough, wheezing.Cardiac: Pt. denies any chest pain,: card cleaner endorses baseline of frequencyMSK: Pt. denies any MSK complaints.Skin:Skin improved over prior per caregiver reportNeuro: No loss of function apparent to caregiver in ambulation status.Endocrine: Caregiver denies new pattern of cold or hot manifestation in patientHematologic: No frequent bleeding, epistaxis, easy bruisability reported by caregiver. NAKIA SANTOS [address], [place], [address], [facility]. 03/05/2024 12:22:56 05/04/2024 text/html Patient with pos sible abscess/boil to posterior R thigh, first noticed 2 nights ago, has become larger is more tender.Does have a small head with no visible drainage per caregivers at long-term.Has had no fevers.Has had past skin infection to axilla. No recent antibiotic use. No history of drug resistant skin infections. VENTURA GANNON, SUBSTATION INSPECTOR [address], [place], [address], [facility]. 05/04/2024 16:17:55 06/28/2024 text/html Pt, 34-M, here [...] candidate though. NAKIA SANTOS [address], [place], [address], [facility]. 06/29/2024 17:55:30 07/15/2024 text/html Pt. 34-M, [...] of his development disability. NAKIA SANTOS Dr, [place], [address], [facility]. 07/15/2024 10:33:24 07/22/2024 text/html Pt, 34-M, [...] of chronic skin excoriations. NAKIA SANTOS Dr, [place], [address], [facility]. 07/23/2024 05:45:07
--- OUTSIDE RECORDS SUMMARY | 2024-08-06 00:56 | XMS_ITS | Continuity of Care Document ---
Author Organization [place] - [facility] Address [address] [place] [address] Care Team Providers Care Windows Server Engineer Name Role Phone [facility] Psychiatrist Assessment No assessment recorded. Plan of Treatment Reminders Order Date Submit Date Provider Last Modified By Organization Details Last Modified Time Details Appointments None recorded. Lab BMP, serum or plasma 2024 025 [email or web address] [facility] (Registration ), [address] [place] [address] [place], [address], 5 13:13:42 Referral dermatolog ist referral - Pt 34-M, developmen tally disabled, non-verbal , with history of chronic excoriatio n of skin leading to frequent superficia l infection, currently treating for abscess on left posterior thigh with cephlex and improving, being referred for dermatolog y care. 2024 025 [facility], [address], [place], [address], 5 08:45:20 Procedures None recorded. Surgeries None recorded. Imaging None recorded. Medication Orders cephalexin 500 mg capsule 2024 025 [facility]- [address] [place], [address], 05:42:52 Patient TargetsNo targets recorded. Patient Instructions Encounter Date Encounter Id Patient Instructions Last Modified By Organization Details Last Modified Time 07/22/2024 [id number] As written on your visit sheet. [email or web address] Not available 07/22/2024 11:12:36 Reason for Referral Package Liner Referral for C hronic excoriation of skin Pt 34-M, developmentally disabled, non-verbal, with history of chronic excoriation of skin leading to frequent superficial infection, currently treating for abscess on left posterior thigh with cephlex and improving, being referred for dermatology care. Referring Physician: Jimbo More, Family Medicine, Encounter Date: 07/22/2024 Problems Name Problem SNOMED Code Status Onset Date Resolution Date Notes Provider Name and Address Organization Details Recorded Time Hyponatr emia 04600804 Active [address], [place], [address] , [facility] 4 12:31:17 Mass lesion of brain 060630023 Active [address], [facility] [address] , [facility] 4 17:54:43 Abscess of skin and/or subcutan eous tissue 17403894 Active [address], [facility] [address] , [facility] 5 10:14:30 Optic atrophy 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 Active 2016 Problem Code: H47.20; Problem Code Type: ICD-10; Not Available [facility] 3 04:21:52 Gastriti s 6571200 Active 2016 Problem Code: K29.70; Problem Code Type: ICD-10; Not Available [facility] 3 04:21:52 Urinary incontin ence 063909044 Active 2016 Problem Code: R32; Problem Code Type: ICD-10; Not Available [facility] 3 04:21:52 Senile osteopor osis 26499135 Active 201602/22/20 21 - Comments only - [...] M81.0; Problem Code Type: ICD-10; Not Available [facility] 3 04:21:52 Pure hypergly ceridemi a 225348295 Active 201602/27/20 22 - Comments only - Ren Vaz MD - tolerati ng statin. However with elevated LFTs could consider cutting statin dose to see if helps LFTs. Problem Code: E78.1; Problem Code Type: ICD-10; Not Available [facility] 3 04:21:53 History of benign neoplasm of brain 209700357 Active 2016 Problem Code: Z86.011; Problem Code Type: ICD-10; Not Available [facility] 3 04:21:53 Insomnia 687654299 Active 201612/09/19 19 - Deterior ated - Subha Colon ASSISTANT ANALYST - Currentl y on trazodon e, not effectiv e. See above. 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 Cycloben zaprine no longer effectiv e. Will change to baclofen 10mg TID. transaction advisory services manager will call in 1-2 weeks to report effectiv eness. Pain may be influenc ing increase d agitatio n and poor sleep. Problem Code: M24.50; Problem Code Type: ICD-10; Not Available [facility] 3 04:21:53 Amnesia 50062353 Active 2016 Problem Code: R41.3; Problem Code Type: ICD-10; Not Available [facility] 3 04:21:53 Hemipleg ia 26782414 Active 201602/22/20 21 - Comments only - Ren Vaz MD - Encourag ing increase in activty. I agree with PT. Problem Code: G81.90; Problem Code Type: ICD-10; Not Available [facility] 3 04:21:54 Red blood cell finding 769177032 Active 2017 Problem Code: R71.8; Problem Code Type: ICD-10; Not Available [facility] 3 04:21:54 Retentio n of urine 140306660 Active 201805/18/20 19 - Comments only - Subha Colon APRN - Suscepti ble to UTIs. They will return urine sample for testing. Problem Code: R33.9; Problem Code Type: ICD-10; Not Available [facility] 3 04:21:54 Restless ness and agitatio n 484779480 Active 2018 Problem Code: R45.1; Problem Code Type: ICD-10; Not Available [facility] 3 04:21:54 Seizure 71993147 Active 2018 Problem Code: R56.9; Problem Code Type: ICD-10; Not Available [facility] 3 04:21:54 Dyspnea 342692546 Completed 201806/01/2019 Problem Code: R06.02; Problem Code Type: ICD-10; Not Available [facility] 3 04:21:54 Acute upper respirat ory infectio n 05952747 Completed 201806/01/2019 05/18/20 19 - Comments only - Subha Colon APRN - With low-grad e fever, producti ve cough, wheezing . Pt is quite suscepti ble to both respirat ory and urinary tract infectio ns. Will start doxycycl ine to cover for possible pneumoni a. Advised to increase use of nebulize r to TID. Problem Code: J06.9; Problem Code Type: ICD-10; Not Available [facility] 3 04:21:55 Steatosi s of liver 212088983 Active 201903/03/20 23 - Comments only - Ren Vaz MD - Improved last year with weight loss. REcheck CBC/CMP with labs Problem Code: K76.0; Problem Code Type: ICD-10; Not Available [facility] 3 04:21:55 Adult health examinat ion Active [...] Z00.00; Problem Code Type: ICD-10; Not Available [facility] 3 04:21:55 Bradycar hossein [id number] Completed 201909/01/2019 08/25/19 20 - Comments only - Ren Vaz MD - Resolved after stopping metoprol ol. BP still okay, no hard indicati on for metoprol ol, so continue off this medicati on. Problem Code: R00.1; Problem Code Type: ICD-10; Not Available [facility] 3 04:21:55 Urticari a 169721466 Active 201908/14/19 21 - Comments only - Ren Vaz MD - irmpoved . continue higher dose H2 gui for now. Problem Code: L50.9; Problem Code Type: ICD-10; Not Available [facility] 3 04:21:55 Localize d eruption of skin 769639689 Completed 201904/26/2020 04/05/20 20 - Comments only - Ricarda Sanchez MACHINE ROOM ENGINEER - Unclear etiology : possibly contact urticari [...] R21; Problem Code Type: ICD-10; Not Available [facility] 3 04:21:56 Anemia 011396686 Active 202008/20/19 22 - Comments only - Ren Vaz MD - This has been a stable chronic issue. We discusse d I iron stores actually normal, low TIBC suggests chronic disease cause. Continue to follow. Problem Code: D64.9; Problem Code Type: ICD-10; Not Available [facility] 3 04:21:56 Hypo-osm olality and or hyponatr emia 885596691 Active 202002/22/20 21 - Comments only - Ren Vaz MD - Doing well on fluid restrict ion, continue . Problem Code: E87.1; Problem Code Type: ICD-10; Not Available [facility] 3 04:21:56 Obesity 835484194 Active 2020 Problem Code: E66.9; Problem Code Type: ICD-10; Not Available [facility] 3 04:21:56 Furuncle of left axilla 60133810343 384241 Active 202003/14/20 21 - Comments only - [...] L02.422; Problem Code Type: ICD-10; Not Available [facility] 3 04:21:56 Trichoti manishaia 45838793 Active 202102/27/20 22 - Comments only - Ren Vaz MD - Discusse d skin care, defer medicati on adjustme nts to psych Problem Code: F63.3; Problem Code Type: ICD-10; Not Available [facility] 3 04:21:56 Diabetes insipidu s 26973819 Active 201605/24/20 19 - Comments only - Subha Colon APRN - Will recheck sodium level. Problem Code: E23.2; Problem Code Type: ICD-10; Not Available [facility] 3 04:21:57 Hypopitu itarism 16672922 Active 2016 Problem Code: E23.0; Problem Code Type: ICD-10; Not Available [facility] 3 04:21:57 Hypothyr oidism 72728720 Active 201602/22/20 21 - Comments only - Ren Vaz MD - FT4 at goal, continue current supplume ntation Problem Code: E03.8; Problem Code Type: ICD-10; Not Available [facility] 3 04:21:57 History and physical examinat ion, administ rative Completed 201807/09/2019 Problem Code: Z02.89; Problem Code Type: ICD-10; Not Available [facility] 3 04:21:58 Disorder of eye 988913467 Completed 201804/05/2019 Problem Code: H44.89; Problem Code Type: ICD-10; Not Available [facility] 3 04:21:59 Pain of left knee joint 74939714255 4107 Completed 201707/09/2019 Problem Code: M25.562; Problem Code Type: ICD-10; Not Available [facility] 3 04:21:59 Bleeding 797421112 Completed 202002/21/2021 Problem Code: R58; Problem Code Type: ICD-10; Not Available [facility] 3 04:21:59 Fever 018093476 Completed 201804/05/2019 Problem Code: R50.9; Problem Code Type: ICD-10; Not Available [facility] 3 04:21:59 Family history of diabetes mellitus 553650711 Completed 201607/09/2019 Problem Code: Z83.3; Problem Code Type: ICD-10; Not Available [facility] 3 04:22:00 Fever 165747670 Completed 201805/24/2019 Problem Code: R50.9; Problem Code Type: ICD-10; Not Available [facility] 3 04:22:00 Gastroes ophageal reflux disease without esophagi tis 942632935 Completed 201604/02/2023 Problem Code: K21.9; Problem Code Type: ICD-10; Not Available [facility] 3 04:22:00 Wheezing 11878680 Completed 201709/18/2018 Problem Code: R06.2; Problem Code Type: ICD-10; Not Available [facility] 3 04:22:00 High enzyme level in serum 303986293 Completed 201904/02/2023 02/27/20 22 - Comments only [...] R74.8; Problem Code Type: ICD-10; Not Available [facility] 3 04:22:01 Body mass index 30+ - obesity 340602392 Completed 202004/02/2023 Problem Code: Z68.34; Problem Code Type: ICD-10; Not Available [facility] 3 04:22:01 Disorder of intestin e 65836957 Completed 202008/14/2020 Problem Code: K63.9; Problem Code Type: ICD-10; Not Available [facility] 3 04:22:01 Screenin g for disorder Completed 201809/18/2018 Problem Code: Z13.9; Problem Code Type: ICD-10; Not Available [facility] 3 04:22:01 Spasm 54812029 Completed 201704/02/2023 08/25/19 20 - Comments only - Ren Vaz MD - Ongoing problem since CVA. Has neuro consult in october to consiide botox. For now try higher dose lorazepa m along with baclofen . Problem Code: R25.2; Problem Code Type: ICD-10; Not Available [facility] 3 04:22:02 Pain of right knee joint 61499757743 4100 Completed 201704/30/2018 Problem Code: M25.561; Problem Code Type: ICD-10; Not Available [facility] 3 04:22:02 Cough 31235973 Completed 201709/08/2019 Problem Code: R05; Problem Code Type: ICD-10; Not Available [facility] 3 04:22:02 Iron deficien cy anemia 35687248 Completed 201704/02/2023 Problem Code: D50.8; Problem Code Type: ICD-10; NAKIA SANTOS [address], [place], [address] , [facility] 4 09:14:59 Counseli odalis Completed 201812/08/2018 Problem Code: Z71.89; Problem Code Type: ICD-10; Not Available [facility] 3 04:22:03 Disorder of tooth developm ent 071215860 Completed 201808/14/2020 Problem Code: K00.9; Problem Code Type: ICD-10; Not Available [facility] 3 04:22:03 Hypocalc emia 2920639 Completed 201910/25/2019 Problem Code: E83.51; Problem Code Type: ICD-10; Not Available [facility] 3 04:22:03 Hyperosm olality and or hypernat remia 824449966 Completed 201908/14/2020 Problem Code: E87.0; Problem Code Type: ICD-10; Not Available [facility] 3 04:22:04 Testicul ar hypofunc tion 481336992 Completed 201604/02/2023 Problem Code: E29.1; Problem Code Type: ICD-10; Not Available [facility] 3 04:22:04 Seasonal allergic rhinitis 080875359 Completed 201904/02/2023 10/25/19 20 - Comments only - Ren Vaz MD - try H1 block Problem Code: J30.2; Problem Code Type: ICD-10; Not Available [facility] 3 04:22:05 Wheezing 26692482 Completed 201805/24/2019 Problem Code: R06.2; Problem Code Type: ICD-10; Not Available [facility] 3 04:22:05 Seizure 49402160 Completed 201607/09/2019 Problem Code: R56.9; Problem Code Type: ICD-10; Not Available [facility] 3 04:22:05 Chronic excoriat ion of skin 876424241 Active [address], [facility] [address] , [facility] 4 09:12:56 Non-alco holic fatty liver disease Active [address], [place] [address] , [facility] 4 09:14:30 Iron deficien cy anemia 92189096 Active 2023 Problem Code: D50.8; Problem Code Type: ICD-10; [address], [place], [address] , [facility] 4 09:14:59 Pruritic disorder 166985232 Active [address], [facility] [address] , [facility] 4 09:21:10 Seizure disorder 024216295 Active [address], [place], [address] , [facility] 4 10:59:32 Finding of frequenc y of urinatio n 035293833 Active 2023 [address], [place], [address] , [facility] 4 11:23:00 Notes:*Problem Name: Blindne ss - both eyes *Problem Status: active *Comments: *Problem Code: H54.0 *Problem Code Type: ICD-10 *Note Date: 11/11/2016 Problem Notes None recorded. Medical Equipment None Reported. Allergies Allergen ID Allergen Name Allergen Category Reaction Reaction Severity Criticality Documentation Date Start Date Code Code System Note Provider Name and Address Organization Details Recorded Time 69702 Lopid medicatio n Not available Not available Not available 05/04/2024 9 RxNorm MALOU Martinez, [facility] 4 10:58:41 Medications Name Sig Start Date [...] DateTime 5 167.157 4 cm 35.1 kg/m2 26068.3 9 g 97.3 [degF] 100 % 100 % 92 /min 132 mm[Hg] 72 mm[Hg] KRISTYN SINGH MA [facility] 5 10:30:05 Social History Question Answer Notes LastModified by Organizat ion Details LastModified Time Tobacco Smoking Status Never Smoker MALOU Martinez, [facility] 05/04/2024 11:00:43 What Was The Date Of Your Most Recent Tobacco Screening? 05/04/2024 [email or web address] Information not available 05/04/2024 Has Tobacco Cessation Counseling Been Provided? Yes [email or web address] Information not available 05/04/2024 On What Date Was Tobacco Cessation Counseling Provided? 05/04/2024 [email or web address] Information not available 05/04/2024 Sex: Male Functional Status None recorded. Mental Status None recorded. Family History Nothing Reported Notes:*Problem: Mom had trever l failure Diabetes in the family Medical History No medical history recorded. Immunizations Vaccine Type Date Status Note Provider Nam e and Address Organization Details Recorded Time MMR 0 completed Not Available [facility] 05/16/2023 04:39:45 MMR 2 completed Not Available [facility] 05/16/2023 04:39:46 Tdap 1 completed Not Available [facility] 05/16/2023 04:39:47 Tdap 1 completed Not Available [facility] 05/16/2023 04:39:48 Influenza, split virus, quadrivalent, PF 9 completed Not Available [facility] 05/16/2023 04:39:48 Hib, unspecified formulation 1 completed Not Available [facility] 05/16/2023 04:39:48 Hib, unspecified formulation 1 completed Not Available [facility] 05/16/2023 04:39:49 Hib, unspecified formulation 2 completed Not Available [facility] 05/16/2023 04:39:49 Hib, unspecified formulation 1 completed Not Available [facility] 05/16/2023 04:39:49 DTaP 1 completed Not Available [facility] 05/16/2023 04:39:50 DTaP 1 completed Not Available [facility] 05/16/2023 04:39:50 DTaP 6 completed Not Available [facility] 05/16/2023 04:39:50 DTaP 1 completed Not Available [facility] 05/16/2023 04:39:50 DTaP 2 completed Not Available [facility] 05/16/2023 04:39:50 COVID-19, mRNA, LNP-S, PF, 100 mcg/0.5mL dose or 50 mcg/0.25mL dose 1 completed Not Available [facility] 05/16/2023 04:39:50 COVID-19, mRNA, LNP-S, PF, 100 mcg/0.5mL dose or 50 mcg/0.25mL dose 2 completed Not Available [facility] 05/16/2023 04:39:51 SARS-COV-2 (COVID-19) vaccine, UNSPECIFIED 1 completed Not Available [facility] 05/16/2023 04:39:52 SARS-COV-2 (COVID-19) vaccine, UNSPECIFIED 1 completed Not Available [facility] 05/16/2023 04:39:52 Hep B, unspecified formulation 3 completed Not Available [facility] 05/16/2023 04:39:52 Hep B, unspecified formulation 3 completed Not Available [facility] 05/16/2023 04:39:52 Hep B, unspecified formulation 3 completed Not Available [facility] 05/16/2023 04:39:52 influenza, unspecified formulation 4 completed Not Available [facility] 05/16/2023 04:39:53 polio, unspecified formulation 1 completed Not Available [facility] 05/16/2023 04:39:53 polio, unspecified formulation 1 completed Not Available [facility] 05/16/2023 04:39:54 polio, unspecified formulation 6 completed Not Available [facility] 05/16/2023 04:39:54 polio, unspecified formulation 1 completed Not Available [facility] 05/16/2023 04:39:54 polio, unspecified formulation 2 completed Not Available [facility] 05/16/2023 04:39:54 rabies, unspecified formulation 5 completed Not Available [facility] 05/16/2023 04:39:55 rabies, unspecified formulation 5 completed Not Available [facility] 05/16/2023 04:39:55 Influenza, split virus, trivalent, PF 4 completed NAKIA SANTOS [address], [place], [address], [facility]. 06/29/2024 17:51:39 Influenza, split virus, quadrivalent, PF 3 completed Not Available [facility] 07/18/2023 05:33:06 COVID-19, mRNA, LNP-S, PF, kota-sucrose, 30 mcg/0.3 mL 3 completed Not Available [facility] 07/18/2023 05:33:07 Past Encounters Encounter ID Performer Location Encounter Start Date Encounter Closed Date Diagnosis/Indication Diagnosis SNOMED-CT Code Diagnosis ICD10 Code Diagnosis Note [id number] NAKIA SANTOS [facility] [address] [place] [address] 06/28/2024 11:23:42 06/28/2024 12:54:45 Hyponatremia 85912038 E87.1 will recheck this lab. Currently following 2.5 L fluid restrictio n. No signs of excess fluid status on exam. Pt. at baseline from mental status viewpoint. Medlist reconciled . Active or passive immunization 922322356 Z23 Mass lesion of brain 422 727175 R22.0 Pt. to f/u with neurosurge ry for evolving 3.5cm mass [id number] NAKIA SANTOS [facility] [address] [place] [address] 07/15/2024 09:44:29 07/15/2024 10:32:19 Abscess of skin and/or subcutaneous tissue 40247932 L02.91 Pt. with abscess, about 5x10 cm along eliptical axis of left posterolat eral thigh, warm, ttp. Will start antibiotic s given pt. propensity to pick and current discomfort . Referred to wound care clinic for this and the other smaller ulceration on his right upper thigh. [id number] NAKIA SANTOS [facility] [address] [place] [address] 07/22/2024 10:14:28 07/22/2024 11:15:42 Abscess of skin and/or subcutaneous tissue 69583398 L02.91 Abscess area is improved with less redness circumfere ntially. Will continue Cephalexin for another 5 days. If infection worsens immediatel y after that, he may need GS referral for surgical excision/d rainage given the pt. comorbidit ies this would be a risk in the primary care office. Chronic ex coriation of skin 174710959 T14.8XXA We will Rx pplx mupiricin in case of any signs of infection related to chronic picking at scabs. Hyponatremia 41190393 E8 7.1 will recheck this lab. Currently [...] [employer] Member ID Guarantor Name 07/22/2024 1 [facility] (MEDICAID) Miguel Angel Burgos [id number] Miguel Angel Burgos Notes Date Note Type [...] of chronic skin excoriations. [address], [place], [address], [facility]. 07/23/2024 05:45:07
--- OUTSIDE RECORDS SUMMARY | 2024-08-06 00:57 | XMS_ITS | Continuity of Care Document ---
Author Organization [place] - [facility] Address [address] [place] [address] Care Team Providers Care Ductfixing Plumber Name Role Phone [facility] Psychiatrist Assessment No assessment recorded. Plan of Treatment Reminders Order Date Submit Date Provider Last Modified By Organization Details Last Modified Time Details Appointments None recorded . Lab BMP, serum or plasma - 1 SST 024 06/28/20 sleiper3 [facility] (Registration ), [address] [place] [address] [place], [address], 4 09:25:07 Referral None recorded . Procedures None [...] t Name: Miguel Angel Burgos Unit #: [id number] Loc: ER Orderi ng Provid er: Accoun t #: [id number] Status : PRE ER Primar y [...] contra st. COMPAR HARDIK: CT HEAD WO 3/29/2 024 8:38 AM FINDIN GS: Brain: There [...] of the extra- axial space along the brand sales manager ior midlin e of the brand sales manager ior fossa presum ably repres ents [...] d by: Jaime Ceballos MD. Orderi ng:P.S FRANKIE Ortega MD Access ion#=[id number] Ordere d By: CC: ------ ------ [...] at the addres s above. Thank- you. [email or web address] [place] [address] [facility] [place], [address] 06/14/2024 13:39:40 06/14/2006/14/2024 CT imagi ng repor t Patien t Name: Miguel Angel Burgos Unit #: [id number] Loc: ER Orderi ng Provid er: Diego Winchester M.D.holly t #: [id number] Status : DEP ER Primar y Care [facility] er: Jose More Date of Exam: 02/27 [...] error, please notify us immedi ately at [phone] and return the origin al report to us at the addres s above. Thank- you. INTERFACE [address] [place], [address] 06/14/2024 09:01:48 Result Notes None recorded. 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 However with elevated LFTs could consider cutting statin dose to see if helps LFTs. Problem Code: E78.1; Problem Code Type: ICD-10; Not Available [facility] 3 04:21:53 History of benign neoplasm of brain 304764784 Active 2016 Problem Code: Z86.011; Problem Code Type: ICD-10; Not Available [facility] 3 04:21:53 Insomnia 626625680 Active 201612/09/19 19 - Deterior ated - Subha Colon CRUST SORTER - Currentl y on trazodon e, not effectiv e. See above. 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 Cycloben zaprine no longer effectiv e. Will change to baclofen 10mg TID. manager study will call in 1-2 weeks to report effectiv eness. Pain may be influenc ing increase d agitatio n and poor sleep. Problem Code: M24.50; Problem Code Type: ICD-10; Not Available [facility] 3 04:21:53 Amnesia 62892840 Active 2016 Problem Code: R41.3; Problem Code Type: ICD-10; Not Available [facility] 3 04:21:53 Hemipleg ia 34217657 Active 201602/22/20 21 - Comments only - Ren Vaz MD - Encourag ing increase in activty. I agree with PT. Problem Code: G81.90; Problem Code Type: ICD-10; Not Available [facility] 3 04:21:54 Red blood cell finding 958729294 Active 2017 Problem Code: R71.8; Problem Code Type: ICD-10; Not Available [facility] 3 04:21:54 Retentio n of urine 637635381 Active 201805/18/20 19 - Comments only - Subha Darlene SANTANA - Suscepti ble to UTIs. They will return urine sample for testing. Problem Code: R33.9; Problem Code Type: ICD-10; Not Available [facility] 3 04:21:54 Restless ness and agitatio n 534177458 Active 2018 Problem Code: R45.1; Problem Code Type: ICD-10; Not Available [facility] 3 04:21:54 Seizure 98684009 Active 2018 Problem Code: R56.9; Problem Code Type: ICD-10; Not Available [facility] 3 04:21:54 Dyspnea 557468606 Completed 201806/01/2019 Problem Code: R06.02; Problem Code Type: ICD-10; Not Available [facility] 3 04:21:54 Acute upper respirat ory infectio n 20363595 Completed 201806/01/2019 05/18/20 19 - Comments only - Subha Colon APRN - With low-grad e fever, producti ve cough, wheezing . Pt is quite suscepti ble to both respirat ory and urinary tract infectio ns. Will start doxycycl ine to cover for possible pneumoni a. Advised to increase use of nebulize r to TID. Problem Code: J06.9; Problem Code Type: ICD-10; Not Available [facility] 3 04:21:55 Steatosi s of liver 570066403 Active 201903/03/20 23 - Comments only - Ren Vaz MD - Improved last year with weight loss. REcheck CBC/CMP with labs Problem Code: K76.0; Problem Code Type: ICD-10; Not Available [facility] 3 04:21:55 Adult health examinat ion [...] Z00.00; Problem Code Type: ICD-10; Not Available [facility] 3 04:21:55 Bradycar hossein 66584568 Completed 201909/01/2019 08/25/19 20 - Comments only - Ren Vaz MD - Resolved after stopping metoprol ol. BP still okay, no hard indicati on for metoprol ol, so continue off this medicati on. Problem Code: R00.1; Problem Code Type: ICD-10; Not Available [facility] 3 04:21:55 Urticari a 976663651 Active 201908/14/19 21 - Comments only - Ren Vaz MD - irmpoved . continue higher dose H2 gui for now. Problem Code: L50.9; Problem Code Type: ICD-10; Not Available [facility] 3 04:21:55 Localize d eruption of skin 875386793 Completed 201904/26/2020 04/05/20 20 - Comments only - Ricarda Sanchez RESEARCH BIOSTATISTICIAN - Unclear etiology : possibly contact urticari [...] Available [facility] 3 04:21:56 Anemia 862418958 Active 202008/20/19 22 - Comments only - Ren Vaz MD - This has been a stable chronic issue. We discusse d I iron stores actually normal, low TIBC suggests chronic disease cause. Continue to follow. Problem Code: D64.9; Problem Code Type: ICD-10; Not Available [facility] 3 04:21:56 Hypo-osm olality and or hyponatr emia 169135913 Active 202002/22/20 21 - Comments only - Ren Vaz MD - Doing well on fluid restrict ion, continue . Problem Code: E87.1; Problem Code Type: ICD-10; Not Available [facility] 3 04:21:56 Obesity 271867398 Active 2020 Problem Code: E66.9; Problem Code Type: ICD-10; Not Available [facility] 3 04:21:56 Furuncle of left axilla 54023942893 721707 Active 202003/14/20 21 - Comments only - [...] [facility] 3 04:21:56 Trichoti manishaia 02118055 Active 202102/27/20 22 - Comments only - Ren Vaz MD - Discusse d skin care, defer medicati on adjustme nts to psych Problem Code: F63.3; Problem Code Type: ICD-10; Not Available [facility] 3 04:21:56 Diabetes insipidu s 04678160 Active 201605/24/20 19 - Comments only - Subha Polishuk CRUST SORTER - Will recheck sodium level. Problem Code: E23.2; Problem Code Type: ICD-10; Not Available [facility] 3 04:21:57 Hypopitu itarism 98112125 Active 2016 Problem Code: E23.0; Problem Code Type: ICD-10; Not Available [facility] 3 04:21:57 Hypothyr oidism 99271104 Active 201602/22/20 21 - Comments only - Ren Vaz MD - FT4 at [facility], continue current supplume ntation Problem Code: E03.8; Problem Code Type: ICD-10; Not Available [facility] 3 04:21:57 History and physical examinat trae, administ yamil Completed 201807/09/2019 Problem Code: Z02.89; Problem Code Type: ICD-10; Not Available [facility] 3 04:21:58 Disorder of eye 701079171 Completed 201804/05/2019 Problem Code: H44.89; Problem Code Type: ICD-10; Not Available [facility] 3 04:21:59 Pain of left knee joint 23650978412 4107 Completed 201707/09/2019 Problem Code: M25.562; Problem Code Type: ICD-10; Not Available [facility] 3 04:21:59 Bleeding 494552894 Completed 202002/21/2021 Problem Code: R58; Problem Code Type: ICD-10; Not Available [facility] 3 04:21:59 Fever 754971268 Completed 201804/05/2019 Problem Code: R50.9; Problem Code Type: ICD-10; Not Available [facility] 3 04:21:59 Family history of diabetes mellitus 861235394 Completed 201607/09/2019 Problem Code: Z83.3; Problem Code Type: ICD-10; Not Available [facility] 3 04:22:00 Fever 160040708 Completed 201805/24/2019 Problem Code: R50.9; Problem Code Type: ICD-10; Not Available [facility] 3 04:22:00 Gastroes ophageal reflux disease without esophagi tis 976044384 Completed 201604/02/2023 Problem Code: K21.9; Problem Code Type: ICD-10; Not Available [facility] 3 04:22:00 Wheezing 47884122 Completed 201709/18/2018 Problem Code: R06.2; Problem Code Type: ICD-10; Not Available [facility] 3 04:22:00 High enzyme level in serum 962910491 Completed 201904/02/2023 02/27/20 22 - Comments only [...] 04:22:01 Body mass index 30+ - obesity 305317023 Completed 202004/02/2023 Problem Code: Z68.34; Problem Code Type: ICD-10; Not Available [facility] 3 04:22:01 Disorder of intestin e 12160962 Completed 202008/14/2020 Problem Code: K63.9; Problem Code Type: ICD-10; Not Available [facility] 3 04:22:01 Screenin g for disorder Completed 201809/18/2018 Problem Code: Z13.9; Problem Code Type: ICD-10; Not Available [facility] 3 04:22:01 Spasm 57217092 Completed 201704/02/2023 08/25/19 20 - Comments only - Ren Vaz MD - Ongoing problem since CVA. Has neuro consult in october to consiide botox. For now try higher dose lorazepa m along with baclofen . Problem Code: R25.2; Problem Code Type: ICD-10; Not Available [facility] 3 04:22:02 Pain of right knee joint 89261722911 4100 Completed 201704/30/2018 Problem Code: M25.561; Problem Code Type: ICD-10; Not Available [facility] 3 04:22:02 Cough 82003644 Completed 201709/08/2019 Problem Code: R05; Problem Code Type: ICD-10; Not Available [facility] 3 04:22:02 Iron deficien cy anemia 01920605 Completed 201704/02/2023 Problem Code: D50.8; Problem Code Type: ICD-10; NAKIA SANTOS [address], [place], [address] , [facility] 4 09:14:59 Counseli odalis Completed 201812/08/2018 Problem Code: Z71.89; Problem Code Type: ICD-10; Not Available [facility] 3 04:22:03 Disorder of tooth developm ent 125152434 Completed 201808/14/2020 Problem Code: K00.9; Problem Code Type: ICD-10; Not Available [facility] 3 04:22:03 Hypocalc emia 3852139 Completed 201910/25/2019 Problem Code: E83.51; Problem Code Type: ICD-10; Not Available [facility] 3 04:22:03 Hyperosm olality and or hypernat remia 466049025 Completed 201908/14/2020 Problem Code: E87.0; Problem Code Type: ICD-10; Not Available [facility] 3 04:22:04 Testicul ar hypofunc tion 192129699 Completed 201604/02/2023 Problem Code: E29.1; Problem Code Type: ICD-10; Not Available [facility] 3 04:22:04 Seasonal allergic rhinitis 498506752 Completed 201904/02/2023 10/25/19 20 - Comments only - Ren Vaz MD - try H1 block Problem Code: J30.2; Problem Code Type: ICD-10; Not Available [facility] 3 04:22:05 Wheezing 62803581 Completed 201805/24/2019 Problem Code: R06.2; Problem Code Type: ICD-10; Not Available [facility] 3 04:22:05 Seizure 99997107 Completed 201607/09/2019 Problem Code: R56.9; Problem Code Type: ICD-10; Not Available [facility] 3 04:22:05 Chronic excoriat ion of skin 310104720 Active [address], [place] [address] , [facility] 4 09:12:56 Non-alco holic fatty liver disease Active [address], [place] [address] , [facility] 4 09:14:30 Iron deficien cy anemia 62362485 Active 2023 Problem Code: D50.8; Problem Code Type: ICD-10; NAKIA SANTOS Dr, [place] [address] , [facility] 4 09:14:59 Pruritic disorder 207674256 Active [address], [place] [address] , [facility] 4 09:21:10 Seizure disorder 223685675 Active [address] [place] [address] , [facility] 4 10:59:32 Finding of frequenc y of urinatio n 007986307 Active [address] [place] [address] , [facility] 4 11:23:00 Notes:*Problem Name: Blindne ss - both eyes *Problem Status: active *Comments: *Problem Code: H54.0 *Problem Code Type: ICD-10 *Note Date: 11/11/2016 Problem Notes None recorded. Medical Equipment None Reported. Allergies Allergen ID Allergen Name Allergen Category Reaction Reaction Severity Criticality Documentation Date Start Date Code Code System Note Provider Name and Address Organization Details Recorded Time 87930 Lopid medicatio n Not available Not available Not available 05/04/2024 9 RxNorm MALOU Martinez, [facility] 4 10:58:41 Medications Name Sig Start [...] DateTime 4 167.157 4 cm 34.3 kg/m2 29567.9 9 g 97.2 [degF] 97 % 97 % 80 /min 128 mm[Hg] 70 mm[Hg] KRISTYN SINGH MA [facility] 4 11:35:36 Social History Question Answer Notes LastModified by Organizat ion Details LastModified Time Tobacco Smoking Status Never Smoker Ashley England MA [facility], [facility] 05/04/2024 11:00:43 What Was The Date Of Your Most Recent Tobacco Screening? 05/04/2024 [email or web address] Information not available 05/04/2024 Has Tobacco Cessation Counseling Been Provided? Yes Information not available 05/04/2024 On What Date Was Tobacco Cessation Counseling Provided? 05/04/2024 [email or web address] Information not available 05/04/2024 Sex: Male Functional Status None recorded. Mental Status None recorded. Family History Nothing Reported Notes:*Problem: Mom had trever l failure Diabetes in the family Medical History No medical history recorded. Immunizations Vaccine Type Date Status Note Provider Nam e and Address Organization Details Recorded Time MMR 0 completed Not Available [facility] 05/16/2023 04:39:45 MMR 2 completed Not Available [facility] 05/16/2023 04:39:46 Tdap 1 completed Not Available [facility] 05/16/2023 04:39:47 Tdap 1 completed Not Available [facility] 05/16/2023 04:39:48 Influenza, split virus, quadrivalent, PF 9 completed Not Available [facility] 05/16/2023 04:39:48 Hib, unspecified formulation 1 completed Not Available [facility] 05/16/2023 04:39:48 Hib, unspecified formulation 1 completed Not Available [facility] 05/16/2023 04:39:49 Hib, unspecified formulation 2 completed Not Available [facility] 05/16/2023 04:39:49 Hib, unspecified formulation 1 completed Not Available [facility] 05/16/2023 04:39:49 DTaP 1 completed Not Available [facility] 05/16/2023 04:39:50 DTaP 1 completed Not Available [facility] 05/16/2023 04:39:50 DTaP 6 completed Not Available [facility] 05/16/2023 04:39:50 DTaP 1 completed Not Available [facility] 05/16/2023 04:39:50 DTaP 2 completed Not Available [facility] 05/16/2023 04:39:50 COVID-19, mRNA, LNP-S, PF, 100 mcg/0.5mL dose or 50 mcg/0.25mL dose 1 completed Not Available [facility] 05/16/2023 04:39:50 COVID-19, mRNA, LNP-S, PF, 100 mcg/0.5mL dose or 50 mcg/0.25mL dose 2 completed Not Available [facility] 05/16/2023 04:39:51 SARS-COV-2 (COVID-19) vaccine, UNSPECIFIED [...] polio, unspecified formulation 6 completed Not Available [facility] 05/16/2023 04:39:54 polio, unspecified formulation 1 completed Not Available [facility] 05/16/2023 04:39:54 polio, unspecified formulation 2 completed Not Available [facility] 05/16/2023 04:39:54 rabies, unspecified formulation 5 completed Not Available [facility] 05/16/2023 04:39:55 rabies, unspecified formulation 5 completed Not Available [facility] 05/16/2023 04:39:55 Influenza, split virus, trivalent, PF 4 completed NAKIA SANTOS [address], [place], [address], [facility] 06/29/2024 17:51:39 Influenza, split virus, quadrivalent, PF 3 completed Not Available [facility] 07/18/2023 05:33:06 COVID-19, mRNA, LNP-S, PF, kota-sucrose, 30 mcg/0.3 mL 3 completed Not Available [facility] 07/18/2023 05:33:07 Past Encounters Encounter ID Performer Location Encounter Start Date Encounter Closed Date Diagnosis/Indication Diagnosis SNOMED-CT Code Diagnosis ICD10 Code Diagnosis Note [id number] NAKIA SANTOS [facility] [address] [place] [address] 06/28/2024 11:23:42 06/28/2024 12:54:45 Hyponatremia 20427230 E87.1 will recheck this lab. Currently following 2.5 L fluid restrictio n. No signs of excess fluid status on exam. Pt. at baseline from mental status viewpoint. Medlist reconciled . Active or passive immunization 438887080 Z23 Mass lesion of brain 422 358637 R22.0 Pt. to f/u with neurosurge ry for evolving 3.5cm mass Health Concerns Section Related Observation LastModified by Organization Detai ls LastModified Time None Recorded Concern Status LastModified by Organization Details LastModified Time None Recorded Payers Encounter Date Sequence Insurance Name Policy Number Policy Soliman Covered Member ID Soliman Member ID Guarantor Name 06/28/2024 1 [facility] (MEDICAID) Miguel Angel Burgos [id number] Miguel Angel Burgos Notes Date Note Type [...] candidate though. NAKIA SANTOS [address], [place], [address], [facility], [facility]. 06/29/2024 17:55:30
--- OUTSIDE RECORDS SUMMARY | 2024-08-06 00:57 | XMS_ITS | Continuity of Care Document ---
Author Organization [place] - [facility] Address [address] [place] [address] Care Team Providers Care Lacquer Mixer Name Role Phone [facility] Psychiatrist Assessment No assessment recorded. [...] see him back in clinic. 2024 025 [facility], [address] [place] [address] [address], [place], [address], 5 08:45:22 Procedures None recorded. Surgeries None recorded. Imaging None recorded. Medication Orders cephalexin 500 mg capsule 2024 025 [facility], [address] [place], [address], 5 10:28:11 Patient TargetsNo targets recorded. Patient Instructions Encounter Date Encounter Id Patient Instructions Last Modified By Organization Details Last Modified Time 07/15/2024 [id number] I have referred Miguel Angel to the [...] you have other concerns please notify us. [email or web address] Not available 07/15/2024 10:30:34 Reason for Referral [...] Name: Miguel Angel Burgos Judy Unit #: [id number] Loc: ER Orderi ng Provid er: Diego Winchester M.D. Accoun t #: [id number] Status : [facility] er: Jose More Date of Exam: [...] error, please notify us immedi astrid at [phone] and return the origin al report to us at the addres s above. Thank- you. INTERFACE [address] , [place], [address] 06/14/2024 09:01:48 Result Notes None recorded. Problems Name Problem SNOMED Code Status Onset Date Resolution Date Notes Provider Name and Address Organization Details Recorded Time Hyponatr emia 82898188 Active [address], [place], [address] , [facility] 4 12:31:17 Mass lesion of brain 499614995 Active [address], [place], [address] , [facility] 4 17:54:43 Abscess of skin and/or subcutan eous tissue 72526645 Active [address], [place], [address] , 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 Problem Code: H47.20; Problem Code Type: ICD-10; Not Available [facility] 3 04:21:52 Gastriti s 3884726 Active 2016 Problem Code: K29.70; Problem Code Type: ICD-10; Not Available [facility] 3 04:21:52 Urinary incontin ence 856519003 Active 2016 Problem Code: R32; Problem Code Type: ICD-10; Not Available [facility] 3 04:21:52 Senile osteopor osis 38434660 Active 201602/22/20 21 - Comments only - [...] M81.0; Problem Code Type: ICD-10; Not Available [facility] 3 04:21:52 Pure hypergly ceridemi a 734035870 Active 201602/27/20 22 - Comments only - Ren Vaz MD - tolerati ng statin. However with elevated LFTs could consider cutting statin dose to see if helps LFTs. Problem Code: E78.1; Problem Code Type: ICD-10; Not Available [facility] 3 04:21:53 History of benign neoplasm of brain 105915757 Active 2016 Problem Code: Z86.011; Problem Code Type: ICD-10; Not Available [facility] 3 04:21:53 Insomnia 348782870 Active 201612/09/19 19 - Deterior jimd - Subha Colon CHIEF SCIENTIST - Currentl y on trazodon e, not effectiv e. See above. 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 Cycloben zaprine no longer effectiv e. Will change to baclofen 10mg TID. consulting services manager will call in 1-2 weeks to report effectiv eness. Pain may be influenc ing increase d agitatio n and poor sleep. Problem Code: M24.50; Problem Code Type: ICD-10; Not Available [facility] 3 04:21:53 Amnesia 46575293 Active 2016 Problem Code: R41.3; Problem Code Type: ICD-10; Not Available [facility] 3 04:21:53 Hemipleg ia 68878256 Active 201602/22/20 21 - Comments only - Ren Vaz MD - Encourag ing increase in activty. I agree with PT. Problem Code: G81.90; Problem Code Type: ICD-10; Not Available [facility] 3 04:21:54 Red blood cell finding 689995716 Active 2017 Problem Code: R71.8; Problem Code Type: ICD-10; Not Available [facility] 3 04:21:54 Retentio n of urine 220983183 Active 201805/18/20 19 - Comments only - Subha Marieuk SANTANA - Suscepti ble to UTIs. They will return urine sample for testing. Problem Code: R33.9; Problem Code Type: ICD-10; Not Available [facility] 3 04:21:54 Restless ness and agitatio n 319929662 Active 2018 Problem Code: R45.1; Problem Code Type: ICD-10; Not Available [facility] 3 04:21:54 Seizure 68604870 Active 2018 Problem Code: R56.9; Problem Code Type: ICD-10; Not Available [facility] 3 04:21:54 Dyspnea 095279561 Completed 201806/01/2019 Problem Code: R06.02; Problem Code Type: ICD-10; Not Available [facility] 3 04:21:54 Acute upper respirat ory infectio n 31340736 Completed 201806/01/2019 05/18/20 19 - Comments only - Subha Darlene SANTANA - With low-grad e fever, producti ve cough, wheezing . Pt is quite suscepti ble to both respirat ory and urinary tract infectio ns. Will start doxycycl ine to cover for possible pneumoni a. Advised to increase use of nebulize r to TID. Problem Code: J06.9; Problem Code Type: ICD-10; Not Available [facility] 3 04:21:55 Steatosi s of liver 086603488 Active 201903/03/20 23 - Comments only - Ren Vaz MD - Improved last year with weight loss. REcheck CBC/CMP with labs Problem Code: K76.0; Problem Code Type: ICD-10; Not Available [facility] 3 04:21:55 Adult health examinat [...] Z00.00; Problem Code Type: ICD-10; Not Available [facility] 3 04:21:55 Bradycar hossein 70459086 Completed 201909/01/2019 08/25/19 20 - Comments only - Ren Vaz MD - Resolved after stopping metoprol ol. BP still okay, no hard indicati on for metoprol ol, so continue off this medicati on. Problem Code: R00.1; Problem Code Type: ICD-10; Not Available [facility] 3 04:21:55 Urticari a 889011510 Active 201908/14/19 21 - Comments only - Ren Vaz MD - irmpoved . continue higher dose H2 gui for now. Problem Code: L50.9; Problem Code Type: ICD-10; Not Available [facility] 3 04:21:55 Localize d eruption of skin 409815411 Completed 201904/26/2020 04/05/20 20 - Comments only - Ricarda Sanchez MANAGER CHANNEL - Unclear etiology : possibly contact urticari [...] R21; Problem Code Type: ICD-10; Not Available [facility] 3 04:21:56 Anemia 796695411 Active 202008/20/19 22 - Comments only - Ren Vaz MD - This has been a stable chronic issue. We discusse d I iron stores actually normal, low TIBC suggests chronic disease cause. Continue to follow. Problem Code: D64.9; Problem Code Type: ICD-10; Not Available [facility] 3 04:21:56 Hypo-osm olality and or hyponatr emia 185303900 Active 202002/22/20 21 - Comments only - Ren Vaz MD - Doing well on fluid restrict ion, continue . Problem Code: E87.1; Problem Code Type: ICD-10; Not Available [facility] 3 04:21:56 Obesity 993743160 Active 2020 Problem Code: E66.9; Problem Code Type: ICD-10; Not Available [facility] 3 04:21:56 Furuncle of left axilla 49599425997 671722 Active 202003/14/20 21 - Comments only - [...] L02.422; Problem Code Type: ICD-10; Not Available [facility] 3 04:21:56 Trichoti jensmania 28802876 Active 202102/27/20 22 - Comments only - Ren Vaz MD - Discusse d skin care, defer medicati on adjustme nts to psych Problem Code: F63.3; Problem Code Type: ICD-10; Not Available [facility] 3 04:21:56 Diabetes insipidu s 17168291 Active 201605/24/20 19 - Comments only - Subha Colon APRN - Will recheck sodium level. Problem Code: E23.2; Problem Code Type: ICD-10; Not Available [facility] 3 04:21:57 Hypopitu itarism 16012515 Active 2016 Problem Code: E23.0; Problem Code Type: ICD-10; Not Available [facility] 3 04:21:57 Hypothyr oidism 87642988 Active 201602/22/20 21 - Comments only - Ren Vaz MD - FT4 at goal, continue current supplume ntation Problem Code: E03.8; Problem Code Type: ICD-10; Not Available [facility] 3 04:21:57 History and physical examinat ion, administ rative Completed 201807/09/2019 Problem Code: Z02.89; Problem Code Type: ICD-10; Not Available [facility] 3 04:21:58 Disorder of eye 867759481 Completed 201804/05/2019 Problem Code: H44.89; Problem Code Type: ICD-10; Not Available [facility] 3 04:21:59 Pain of left knee joint 92610491493 4107 Completed 201707/09/2019 Problem Code: M25.562; Problem Code Type: ICD-10; Not Available [facility] 3 04:21:59 Bleeding 601999695 Completed 202002/21/2021 Problem Code: R58; Problem Code Type: ICD-10; Not Available [facility] 3 04:21:59 Fever 352789358 Completed 201804/05/2019 Problem Code: R50.9; Problem Code Type: ICD-10; Not Available [facility] 3 04:21:59 Family history of diabetes mellitus 088449675 Completed 201607/09/2019 Problem Code: Z83.3; Problem Code Type: ICD-10; Not Available [facility] 3 04:22:00 Fever 735289842 Completed 201805/24/2019 Problem Code: R50.9; Problem Code Type: ICD-10; Not Available [facility] 3 04:22:00 Gastroes ophageal reflux disease without esophagi tis 816672047 Completed 201604/02/2023 Problem Code: K21.9; Problem Code Type: ICD-10; Not Available [facility] 3 04:22:00 Wheezing 43633830 Completed 201709/18/2018 Problem Code: R06.2; Problem Code Type: ICD-10; Not Available [facility] 3 04:22:00 High enzyme level in serum 616894026 Completed 201904/02/2023 02/27/20 22 - Comments only [...] R74.8; Problem Code Type: ICD-10; Not Available [facility] 3 04:22:01 Body mass index 30+ - obesity 632174703 Completed 202004/02/2023 Problem Code: Z68.34; Problem Code Type: ICD-10; Not Available [facility] 3 04:22:01 Disorder of intestin e 73364946 Completed 202008/14/2020 Problem Code: K63.9; Problem Code Type: ICD-10; Not Available [facility] 3 04:22:01 Screenin g for disorder Completed 201809/18/2018 Problem Code: Z13.9; Problem Code Type: ICD-10; Not Available [facility] 3 04:22:01 Spasm 63721161 Completed 201704/02/2023 08/25/19 20 - Comments only - Ren Vaz MD - Ongoing problem since CVA. Has neuro consult in october to consiide botox. For now try higher dose lorazepa m along with baclofen . Problem Code: R25.2; Problem Code Type: ICD-10; Not Available [facility] 3 04:22:02 Pain of right knee joint 02232378044 4100 Completed 201704/30/2018 Problem Code: M25.561; Problem Code Type: ICD-10; Not Available [facility] 3 04:22:02 Cough 06722431 Completed 201709/08/2019 Problem Code: R05; Problem Code Type: ICD-10; Not Available [facility] 3 04:22:02 Iron deficien cy anemia 81567183 Completed 201704/02/2023 Problem Code: D50.8; Problem Code Type: ICD-10; NAKIA SANTOS [address], [place], [address] , [facility]. 4 09:14:59 Counseli odalis Completed 201812/08/2018 Problem Code: Z71.89; Problem Code Type: ICD-10; Not Available [facility] 3 04:22:03 Disorder of tooth developm ent 712458162 Completed 201808/14/2020 Problem Code: K00.9; Problem Code Type: ICD-10; Not Available [facility] 3 04:22:03 Hypocalc emia 9221785 Completed 201910/25/2019 Problem Code: E83.51; Problem Code Type: ICD-10; Not Available [facility] 3 04:22:03 Hyperosm olality and or hypernat remia 704250663 Completed 201908/14/2020 Problem Code: E87.0; Problem Code Type: ICD-10; Not Available [facility] 3 04:22:04 Testicul ar hypofunc tion 988868841 Completed 201604/02/2023 Problem Code: E29.1; Problem Code Type: ICD-10; Not Available [facility] 3 04:22:04 Seasonal allergic rhinitis 143307708 Completed 201904/02/2023 10/25/19 20 - Comments only - Ren Vaz MD - try H1 block Problem Code: J30.2; Problem Code Type: ICD-10; Not Available [facility] 3 04:22:05 Wheezing 99255149 Completed 201805/24/2019 Problem Code: R06.2; Problem Code Type: ICD-10; Not Available [facility] 3 04:22:05 Seizure 47982107 Completed 201607/09/2019 Problem Code: R56.9; Problem Code Type: ICD-10; Not Available [facility] 3 04:22:05 Chronic excoriat ion of skin 223975826 Active [address], [place], [address] , [facility]. 4 09:12:56 Non-alco holic fatty liver disease Active [address], [place], [address] , [facility]. 4 09:14:30 Iron deficien cy anemia 19039694 Active 2023 Problem Code: D50.8; Problem Code Type: ICD-10; NAKIA SANTOS [address], [facility] [address] , [facility] 4 09:14:59 Pruritic disorder 437915166 Active 2023 NAKIA SANTOS [address], [facility] [address] , [facility] 4 09:21:10 Seizure disorder 329998854 Active 2023 N[address]IA S[address]OS [address], [facility] [address] , [facility] 4 10:59:32 Finding of frequenc y of urinatio n 825352354 Active 2023 NAKIA S[address]OS [address], [facility] [address] , [facility] 5 11:23:00 Notes:*Problem Name: Blindne ss - both eyes *Problem Status: active *Comments: *Problem Code: H54.0 *Problem Code Type: ICD-10 *Note Date: 11/11/2016 Problem Notes None recorded. Medical Equipment None Reported. Allergies Allergen ID Allergen Name Allergen Category Reaction Reaction Severity Criticality Documentation Date Start Date Code Code System Note Provider Name and Address Organization Details Recorded Time 03053 Lopid medicatio n Not available Not available Not available 05/04/2024 9 RxNorm MALOU Martinez, [facility] 10:58:41 Medications Name Sig Start Date Stop [...] DateTime 5 167.157 4 cm 31.5 kg/m2 61044.6 4 g 97.5 [degF] 100 % 100 % 96 /min 106 mm[Hg] 68 mm[Hg] KRISTYN SINGH MA [facility], [facility]. 5 10:00:19 Social History Question Answer Notes LastModified by Organizat ion Details LastModified Time Tobacco Smoking Status Never Smoker Ashley England MA null, [facility] 05/04/2024 11:00:43 What Was The Date Of Your Most Recent Tobacco Screening? 05/04/2024 [email or web address] Information not available 05/04/2024 Has Tobacco Cessation Counseling Been Provided? Yes Information not available 05/04/2024 On What Date Was Tobacco Cessation Counseling Provided? 05/04/2024 Information not available 05/04/2024 Sex: Male Functional Status None recorded. Mental Status None recorded. Family History Nothing Reported Notes:*Problem: Mom had trever l failure Diabetes in the family Medical History No medical history recorded. Immunizations Vaccine Type Date Status Note Provider Nam e and Address Organization Details Recorded Time MMR 0 completed Not Available [facility] 05/16/2023 04:39:45 MMR 2 completed Not Available [facility] 05/16/2023 04:39:46 Tdap 1 completed Not Available [facility] 05/16/2023 04:39:47 Tdap 1 completed Not Available [facility] 05/16/2023 04:39:48 Influenza, split virus, quadrivalent, PF 9 completed Not Available [facility] 05/16/2023 04:39:48 Hib, unspecified formulation 1 completed Not Available [facility] 05/16/2023 04:39:48 Hib, unspecified formulation 1 completed Not Available [facility] 05/16/2023 04:39:49 Hib, unspecified formulation 2 completed Not Available [facility] 05/16/2023 04:39:49 Hib, unspecified formulation 1 completed Not Available [facility] 05/16/2023 04:39:49 DTaP 1 completed Not Available [facility] 05/16/2023 04:39:50 DTaP 1 completed [facility] 05/[facility]23 04:39:50 DTaP 6 completed Not Available [facility] 05/16/2023 04:39:50 DTaP 1 completed Not Available [facility] 05/16/2023 04:39:50 DTaP 2 completed Not Available [facility] 05/16/2023 04:39:50 COVID-19, mRNA, LNP-S, PF, 100 mcg/0.5mL dose or 50 mcg/0.25mL dose 1 completed Not Available [facility] 05/16/2023 04:39:50 COVID-19, mRNA, LNP-S, PF, 100 mcg/0.5mL dose or 50 mcg/0.25mL dose 2 completed Not Available [facility] 05/16/2023 04:39:51 SARS-COV-2 (COVID-19) vaccine, UNSPECIFIED 1 completed Not Available [facility] 05/16/2023 04:39:52 SARS-COV-2 (COVID-19) vaccine, UNSPECIFIED 1 completed Not Available [facility] 05/16/2023 04:39:52 Hep B, unspecified formulation 3 completed Not Available [facility] 05/16/2023 04:39:52 Hep B, unspecified formulation 3 completed Not Available [facility] 05/16/2023 04:39:52 Hep B, unspecified formulation 3 completed Not Available [facility] 05/16/2023 04:39:52 influenza, unspecified formulation 4 completed Not Available [facility] 05/16/2023 04:39:53 polio, unspecified formulation 1 completed Not Available [facility] 05/16/2023 04:39:53 polio, unspecified formulation 1 completed Not Available [facility] 05/16/2023 04:39:54 polio, unspecified formulation 6 completed Not Available [facility] 05/16/2023 04:39:54 polio, unspecified formulation 1 completed Not Available [facility] 05/16/2023 04:39:54 polio, unspecified formulation 2 completed Not Available [facility] 05/16/2023 04:39:54 rabies, unspecified formulation 5 completed Not Available [facility] 05/16/2023 04:39:55 rabies, unspecified formulation 5 completed Not Available [facility] 05/16/2023 04:39:55 Influenza, split virus, trivalent, PF 4 completed NAKIA SANTOS [address], [place], [address], [facility] 06/29/2024 17:51:39 Influenza, split virus, quadrivalent, PF 3 completed Not Available [facility] 07/18/2023 05:33:06 COVID-19, mRNA, LNP-S, PF, kota-sucrose, 30 mcg/0.3 mL 3 completed Not Available [facility] 07/18/2023 05:33:07 Past Encounters Encounter ID Performer Location Encounter Start Date Encounter Closed Date Diagnosis/Indication Diagnosis SNOMED-CT Code Diagnosis ICD10 Code Diagnosis Note [id number] NAKIA SANTOS [facility] [address] [place] [address] 06/28/2024 11:23:42 06/28/2024 12:54:45 Hyponatremia 30006235 E87.1 will recheck this lab. Currently following 2.5 L fluid restrictio n. No signs of excess fluid status on exam. Pt. at baseline from mental status viewpoint. Medlist reconciled . Active or passive immunization 118098291 Z23 Mass lesion of brain 422 143179 R22.0 Pt. to f/u with neurosurge ry for evolving 3.5cm mass [id number] NAKIA SANTOS [facility] [address] [place] [address] 07/15/2024 09:44:29 07/15/2024 10:32:19 Abscess of skin and/or subcutaneous tissue 26132729 L02.91 Pt. with abscess, about 5x10 cm [...] Soliman Member ID Guarantor Name 07/15/2024 1 [facility] (MEDICAID) Miguel Angel Burgos [id number] Miguel Angel Burgos Notes Date Note Type [...] development disability. NAKIA SANTOS [address], [place], [address], [facility]. 07/15/2024 10:33:24
--- OUTSIDE RECORDS SUMMARY | 2024-08-06 00:57 | XMS_ITS | Referral Summary ---
Author Organization [facility] Address [address] [place] [address] Care Team Providers Care Carbon Capture Power Plant Engineer Name Role Phone Ren Vaz MD Primary Care Provider [phone] Encounters Date Type Department Care Team Description 08/03/[address] [address] Wilder Zaidi, Coordination Of Care; Labs Only 08/02/[address] [address] Wilder Zaidi, Medication Management 07/06/2024 14:30 EST Phlebotomy Only [address] [address] Phlebotomy, [facility] 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HCC-CMS); Secondary hypothyroidism; Panhypopituitarism (HCC-CMS) 07/06/2024 13:40 EST Office Visit [address] [address] Wilder Zaidi, 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 08/24/19 11 Active Melatonin 3 mg Tab Take 10 mg by mouth at bedtime. 08/24/19 11 Active QUEtiapine (SEROQUEL) 50 mg tabletIndications: Gonadotropin deficiency [...] use one as needed for severe agitation 03/04/20 23 Active pyridoxine, vitamin B6, (VITAMIN [...] down. 12 Tablet 3 03/04/20 24 Active tasimelteon (HETLIOZ) 20 mg capsule Take 20 mg by mouth daily. Active QUEtiapine (SEROQUEL) 200 mg tablet Take 1 Tablet by mouth daily. At bedtime Active methyl salicylate/menthol (BENGAY TOP) Apply topically. Bengay Ultra Strength topical cream Active hydrOXYzine (ATARAX) 25 mg tablet Take 1 Tablet by mouth 3 times daily. Active Active Problems Patient Care Coordination No te Formatting of this note migh t be different from the original. Patient has given permission for the [facility] to verbally discuss the following information [...] of systemic steroids 024 Secondary adrenal insufficiency ([facility]) 2018 Hypopituitarism involving mu ltiple pituitary deficiencies ([facility]) 06/14/2010 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[facility]) 03/2010 Craniopharyngioma ([facility]) 06/14/2010 Gonadotropin deficiency ([facility]) 06/14/2010 Secondary hypothyroidism 06/14/2010 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[facility]) 06/14/2010 Social History Tobacco Use Types [...] EDT Office Visit [facility] [place] [address] [place] [address] Dejuan Wilder Ayalaip, DO [address] [place] [address] Medical Devices Implanted Type Area Sales Project Administrator Device Identifier Shelf Expiration Date Model / [...] 0.8 - 2.2 ng/dL 07/06/2024 18:52 EST [facility] Blood VENOUS BLOOD / Unknown Venipuncture / Unknown 07/06/2024 14:44 EST 07/06/2024 14:45 EST Wilder Zaidi DO CHEMISTRY & BLOOD GAS ORDERABLES Final Result Performing Organization Address [facility] de Phone Number [facility] [address] [place] [address] * HEMOGLOBIN A1C (07/06/2024 14:44 EST) Hemoglobin A1c 4.9 <5.7 % 07/06/2024 20:54 [facility] Comment: Glycemic Status References: Normal: ??<5.7% Pre-Diabetes: ??5.7% - 6.4% Diagnostic of Diabetes: ??> or = 6.5% (if confirmed) Est Avg Glucose 94 mg/dL 20:54 [facility] Comment:The eAG represents t he A1c result expressed as average glucose in mg/dL. Blood VENOUS BLOOD / Unknown Venipuncture / Unknown 07/06/2024 14:44 EST 07/06/2024 14:45 EST Wilder Zaidi DO CHEMISTRY & BLOOD GAS ORDERABLES Final Result Performing Organization Address City/[facility] Co de Phone Number [facility] [address] [place] [address] * BASIC METABOLIC PANEL (BMP) (07/06/2024 14:44 EST) Sodium 142 136 - 145 mmol/L 07/06/2024 18:31 [facility] Potassium 4.3 3.5 - 5.0 mmol/L 07/06/2024 18:31 EST [facility] Chloride 107 96 - 110 mmol/L 07/06/2024 18:31 [facility] CO2 Total 22 22 - 32 mmol/L 07/06/2024 18:31 [facility] Anion Gap 13 5 - 14 mmol/L 07/06/2024 18:31 [facility] Glucose 87 70 - 99 mg/dl 07/06/2024 18:31 [facility] Calcium 9.2 8.5 - 10.5 mg/dL 07/06/2024 18:31 [facility] BUN 17 10 - 26 mg/dL 07/06/2024 18:31 [facility] Creatinine 0.95 0.66 - 1.25 mg/dL 07/06/2024 18:31 [facility] eGFR 108 >60 mL/min/1.73 m2 07/06/2024 18:31 [facility] Blood VENOUS BLOOD / Unknown Venipuncture / Unknown 07/06/2024 14:44 EST 07/06/2024 14:45 EST Wilder Zaidi DO CHEMISTRY & BLOOD GAS ORDERABLES Final Result [facility] [address] [place] [address] * HEPATITIS C AB W REFLEX TO HCV RNA BY PCR (07/30/2019 11:59 EST) Hep C Antibody Negative Negative 08/02/2019 11:26 EST [facility] Blood VENOUS BLOOD / Unknown 07/30/2019 11:59 EST 07/30/2019 16:45 EST us Provider Unknown MD CHEMISTRY & BLOOD GAS ORDERA BLES Final Result [facility] [address] [place] [address] from Last 3 Months or Most Recently [place]vant [place] [address] MEDICAID ACO [place] Advance Directives For more information, please contact: [phone] Documents on File Type Date Recorded Patient General Operations Manager Expl anation Guardianship 06/25/2024 9:50 [address] of [place] [address], [facility] Appointment of Gu * Full Code (Latest Code Status on File) Date Activated Date Inactivated Comments 02/24/2011 22:28 02/25/2011 20:41 Care Teams Carbon Capture Power Plant Engineer Relationship Specialty Start Date End Date Ren [place] [address] PCP - General 09/30/18
--- OUTSIDE RECORDS SUMMARY | 2024-08-06 00:57 | XMS_ITS | Clinical Summary ---
Author Organization [facility] Address [address] [place] [address] Care Team Providers Care Head Miller Name Role Phone Ren Vaz MD Primary Care Provider Allergies Active Allergy Reactions Criticality Noted Date [...] original. 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 ([facility]) 06/14/2010 Secondary hypothyroidism 06/14/2010 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[facility]) 06/14/2010 Encounters Date Type Department Care Team Description 08/03/[address] [id number] Wilder Zaidi, Coordination Of Care; Labs Only 08/02/[address] [phone] Wilder Zaidi, Medication Management 07/06/2024 14:30 EST Phlebotomy Only [address] [address] Phlebotomy, [facility] 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[facility]); Secondary hypothyroidism; 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[facility]) 07/06/2024 13:40 EST Office Visit [address] [address] Wilder Zaidi, 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); History of pituitary surgery; Secondary adrenal insufficiency (HCC-CMS); 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HCC-CMS); Craniopharyngioma (HCC-CMS); Panhypopituitarism (HCC-CMS); Secondary hypothyroidism 06/21/2024 Telephone [facility] Endocrinology - [address] [address] Wilder Zaidi, Other (Needs permission [...] Office Visit [facility] Endocrinology - [address] [address] Wilder Zaidi DO [address] [place] [address] [address] [place] [address] Health Maintenance Due Date Last Done Comments Hepatitis B Vaccine (1 of 3 - 19+ 3-dose series) 2009 COVID-19 Vaccine (2023- season) 2024, 02/26/2022 Hepatitis C Screen Completed 07/30/2019, 02/26/2005 Medical Devices Implanted Type Area Desk Pen Set Assembler Device Identifier Shelf Expiration Date Model / [...] 0.8 - 2.2 ng/dL 07/06/2024 18:52 EST [facility] Blood VENOUS BLOOD / Unknown Venipuncture / Unknown 07/06/2024 14:44 EST 07/06/2024 14:45 EST Wilder Zaidi DO CHEMISTRY & BLOOD GAS ORDERABLES Final Result Performing Organization Address [facility] Co de Phone Number [facility] [address] [place] [address] * HEMOGLOBIN A1C (07/06/2024 14:44 EST) Hemoglobin A1c 4.9 <5.7 % 07/06/2024 20:54 [facility] Comment: Glycemic Status References: Normal: ??<5.7% Pre-Diabetes: ??5.7% - 6.4% Diagnostic of Diabetes: ??> or = 6.5% (if confirmed) Est Avg Glucose 94 mg/dL 20:54 [facility] Comment:The eAG represents t he A1c result expressed as average glucose in mg/dL. Blood VENOUS BLOOD / Unknown Venipuncture / Unknown 07/06/2024 14:44 EST 07/06/2024 14:45 EST Wilder Zaidi DO CHEMISTRY & BLOOD GAS ORDERABLES Final Result Performing Organization Address [facility] de Phone Number [facility] [address] [place] [address] * BASIC METABOLIC PANEL (BMP) (07/06/2024 14:44 EST) Sodium 142 136 - 145 mmol/L 07/06/2024 18:31 [facility] Potassium 4.3 3.5 - 5.0 mmol/L 07/06/2024 18:31 [facility] Chloride 107 96 - 110 mmol/L 07/06/2024 18:31 [facility] CO2 Total 22 22 - 32 mmol/L 07/06/2024 18:31 [facility] Anion Gap 13 5 - 14 mmol/L 07/06/2024 18:31 [facility] Glucose 87 70 - 99 mg/dl 07/06/2024 18:31 [facility] Calcium 9.2 8.5 - 10.5 mg/dL 07/06/2024 18:31 [facility] BUN 17 10 - 26 mg/dL 07/06/2024 18:31 [facility] Creatinine 0.95 0.66 - 1.25 mg/dL 07/06/2024 18:31 [facility] eGFR 108 >60 mL/min/1.73 m2 07/06/2024 18:31 [facility] Blood VENOUS BLOOD / Unknown Venipuncture / Unknown 07/06/2024 14:44 EST 07/06/2024 14:45 EST Wilder Zaidi DO CHEMISTRY & BLOOD GAS ORDERABLES Final Result Performing Organization Address [facility]/ZIP Co de Phone Number [facility] [address] [place] [address] * HEPATITIS C AB W REFLEX TO HCV RNA BY PCR (07/30/2019 11:59 EST) Hep C Antibody Negative Negative 08/02/2019 11:26 EST [facility] Blood VENOUS BLOOD / Unknown 07/30/2019 11:59 EST 07/30/2019 16:45 EST Provider Unknown MD CHEMISTRY & BLOOD GAS ORDERA BLES Final Result [facility] [address] [place] [address] from Last 3 Months or Most Recently Relevant to Health Maintenance Insurance [place] ACO [place] Advance Directives For more information, please contact: [phone] Documents on File Type Date Recorded Patient Dispute Resolution Specialist Expl anation Guardianship 06/25/2024 9:50 [address] [address], [facility] * Full Code (Latest Code Status on File) Date Activated Date Inactivated Comments 02/24/2011 22:28 02/25/2011 20:41 Care Teams Head Miller Relationship Specialty Start Date End Date Ren Vaz MD [address] [place] [address] PCP - General 09/30/18
--- OUTSIDE RECORDS SUMMARY | 2024-08-06 00:58 | XMS_ITS | Encounter Summary ---
Author Organization [facility] Address [address] [place] [address] Care Team Providers Care Environmental Services Project Manager Name Role Phone Ren Vaz MD Primary Care Provider [phone] Reason for Visit * Reason Comments Pituitary Abnormality Encounter Details Date Type Department Care Team (Latest Contact Info) Description 05/26/2019 11:40 EST Office Visit [facility] End[facility]ology - [facility] [address] [place] [address] Jr Salas, DO [address] [facility] [address] [place] [address] Secondary adrenal insufficiency (HCC-CMS) (Primary [...] 5. Dr. Salas to schedule DXA at [facility] documented in this encounter Progress Notes [...] currently living in his own home in [place], [place]. He has 2 caretakers are with [...] imtiaz. Unfortunately, Miguel Angel was hospitalized at [facility] from 09/02/2017 until 03/12/2018 due to a [...] as his follow- up endocrinology visit at [facility]. ?? With regards to his secondary adrenal [...] receive his endocrine care here at the [facility] [place] [facility] despite living in [place]. However, if he is hospitalized he will likely be sent to [facility] and I be happy to coordinate with our endocrinology group as needed. 8. Will obtain previous DEXA scan performed at [facility] and reorder scan. 9. Given his testosterone [...] 10/01/2024 13:40 EDT Office Visit [facility] Endocrinology - [facility] [address] [place], [place] [phone] Jr Salas DO [address] [facility] [address] [place] [phone] documented as of this encounter Visit Diagnoses [...] 07/06/2024 added in this encounter Care Teams Environmental Services Project Manager Relationship Specialty Start Date End Date Ren Vaz MD [facility] [place] [address] PCP - General 09/30/18 documented as of this encounter
--- OUTSIDE RECORDS SUMMARY | 2024-08-06 00:58 | XMS_ITS | Encounter Summary ---
Author Organization [facility] Address [address] [place] [address] Care Team Providers Care Risk Investigator Name Role Phone Ren Vaz MD Primary Care Provider [phone] Reason for Visit * Reason Onset Date Comments Labs Only 04/11/2020 Encounter Details Date Type Department Care Team (Late st Contact Info) Description 04/11/2020 Telephone [facility] - [facility] [address] [place] [address] Wilder Zaidi, DO [address] [facility] [address] [place] [address] Labs Only Social History Tobacco [...] have been electronically faxed 04/11/20 15:27 to [facility] at [phone]. Lab orders entered by Dr. Zaidi have been electronically faxed 04/11/20 15:31 to Outpatient Lab at [phone]. LESLEY COURTNEY RN 04/11/2020 15:31 * Telephone Encounter - Lesley Jeffrey RN - 04/11/2020 1229 EDT Returning call 04/11/20 12:29 Spoke to : Mavis Per caller, patient is to have sodium checked every 3 months. Caller does not have the order. Would need the order faxed to her or hospital. This check writer salesperson will be faxing it to both fax numbers once we have the answer from the provider. Mavis's fax number : [phone] [facility] in [facility] [place] [facility] : [phone] (fax) LESLEY COURTNEY RN 04/11/2020 12:33 * Telephone Encounter - Mirna Ervin - 04/11/2020 1215 EDT [facility] is calling to ask if orders have been put in for patient's blood work. Patient is there now. Loading Machine Operator Helper tried to reach nurse but was unable. documented in this encounter Plan of Treatment Upcoming Encounters Date Type Department Care Team (Late st Contact Info) Description 10/01/2024 13:40 EDT Office Visit [facility] End[facility] - [facility] [address] [place], [place] [phone] Wilder Zaidi, [address] [facility] [address] [place] [address] documented as of this encounter Visit Diagnoses Diagnosis Panhypopituitarism (HCC-CMS)- Primary Panhypopituitarism documented in this encounter Care Teams Risk Investigator Relationship Specialty Start Date End Date Ren Vaz MD [address] [place] [address] PCP - General 09/30/18 documented as of this encounter
--- OUTSIDE RECORDS SUMMARY | 2024-08-06 00:58 | XMS_ITS | Encounter Summary ---
Author Organization [facility] Address [address] [place] [address] Care Team Providers Care Forge Helper Name Role Phone Ren Vaz MD Primary Care Provider [phone] Reason for Referral * Laboratory Services (Routine/Next Available) - New Request Specialty Diagnoses / Procedures Referred By Duyen bui Referred To Contact Diagnoses 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HCC-CMS) Panhypopituitarism (HCC-CMS) Procedures SODIUM Wilder Zaidi DO [address] [facility] [address] [place] [address] Phone: tel: fax: Referral ID Status Reason Start Date Expiration Date V isits Requested Visits Authorized [id number] New Request 07/06/2024 4 4 Reason for Visit * Reason Comments Adrenal Gland Problem Encounter Details Date Type Department Care Team (Latest Contact Info) Description 07/06/2024 13:40 EST Office Visit [facility] End[facility] - [facility] [address] [place] [address] Wilder Zaidi DO [address] [facility] [address] [place] [address] 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); History of pituitary surgery; Secondary adrenal insufficiency (HCC-CMS); 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HCC-CMS); Craniopharyngioma (HCC-CMS); 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[facility]); Secondary hypothyroidism Social History Tobacco [...] Date Author Yes 10/01/2018 13:33 EDT Sunni aPrk, RN documented in this encounter Patient Instructions * Patient Instructions* Wilder Zaidi DO - 07/06/2024 13:40 EST Increase fluid restriction to 3.0 Liters per day Recheck sodium in one week Follow-up in 3 months [email or web address] documented in this encounter Progress Notes * Wilder Zaidi, - 07/06/2024 1340 EST SUBJECTIVE: Mr Miguel Angel Burgos is a 34-year-old male who returns to the endocrine clinic today for 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 He is accompanied by his legal guardian Bettina and a signs and displays sales representative from his custodial named Ladonna. Miguel Angel is currently living in a custodial where his medications are distributed to him and they maintain a strict fluid restriction. Patient has been followed by Dr. Littlejohn but would like to switch back to this provider. I have been taking care of this provider for many years up until the pandemic where he seemed to somehow get off my schedule. Unfortunately, Miguel Angel was hospitalized at [facility] from June 14, 2024 June 21, 2024 [...] at time of discharge on 06/21/2024 at [facility] showed sodium stable at 141 ASSESSMENT: 1. 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 a. [...] on MRI as part of workup at [facility] during recent admission. There is discussion regarding spinal node versus meningioma. Patient has upcoming appointment with neurosurgery at [facility] in July 2024. 3. Osteoporosis. Patient had a DEXA scan performed on 10/03/2023 at [facility] in [place], [place]. Patient was found to have a [...] weekly for the next 4 weeks at [facility] in [place], [place]. Lab request faxed to that facility today by front office staff 10. Follow-up with me in 3 months documented in this encounter Plan of Treatment Upcoming Encounters Date Type Department Care Team (Late st Contact Info) Description 10/01/2024 13:40 EDT Office Visit [facility] Endocrinology - [address] [address] Wilder Zaidi DO [address] [place] [address] [place] [address] Scheduled Orders Name Type Priority Associated [...] 0.8 - 2.2 ng/dL 07/06/2024 18:52 EST [facility] Blood VENOUS BLOOD / Unknown Venipuncture / Unknown 07/06/2024 14:44 EST 07/06/2024 14:45 EST Wilder Zaidi DO CHEMISTRY & BLOOD GAS ORDERABLES Final Result Performing Organization Address [facility] Co de Phone Number [facility] [address] [place] [address] * HEMOGLOBIN A1C (07/06/2024 14:44 EST) Hemoglobin A1c 4.9 <5.7 % 07/06/2024 20:54 EST [facility] Comment: Glycemic Status References: Normal: ??<5.7% Pre-Diabetes: ??5.7% - 6.4% Diagnostic of Diabetes: ??> or = 6.5% (if confirmed) Est Avg Glucose 94 mg/dL 20:54 [facility] Comment:The eAG represents t he A1c result expressed as average glucose in mg/dL. Blood VENOUS BLOOD / Unknown Venipuncture / Unknown 07/06/2024 14:44 EST 07/06/2024 14:45 EST Wilder Zaidi DO CHEMISTRY & BLOOD GAS ORDERABLES Final Result Performing Organization Address [facility] Co de Phone Number [facility] [address] [place] [address] * BASIC METABOLIC PANEL (BMP) (07/06/2024 14:44 EST) Sodium 142 136 - 145 mmol/L 07/06/2024 18:31 EST [facility] Potassium 4.3 3.5 - 5.0 mmol/L 07/06/2024 18:31 [facility] Chloride 107 96 - 110 mmol/L 07/06/2024 18:31 [facility] CO2 Total 22 22 - 32 mmol/L 07/06/2024 18:31 [facility] Anion Gap 13 5 - 14 mmol/L 07/06/2024 18:31 [facility] Glucose 87 70 - 99 mg/dl 07/06/2024 18:31 [facility] Calcium 9.2 8.5 - 10.5 mg/dL 07/06/2024 18:31 [facility] BUN 17 10 - 26 mg/dL 07/06/2024 18:31 [facility] Creatinine 0.95 0.66 - 1.25 mg/dL 07/06/2024 18:31 [facility] eGFR 108 >60 mL/min/1.73 m2 07/06/2024 18:31 [facility] Blood VENOUS BLOOD / Unknown Venipuncture / Unknown 07/06/2024 14:44 EST 07/06/2024 14:45 EST Wilder Zaidi DO CHEMISTRY & BLOOD GAS ORDERABLES Final Result [facility] [address] [place], [place] [id number] documented in this encounter Visit Diagnoses Diagnosis [...] daily. added in this encounter Care Teams Forge Helper Relationship Specialty Start Date End Date Ren Vaz MD [facility] [place] [address] PCP - General 09/30/18 documented as of this encounter
--- OUTSIDE RECORDS SUMMARY | 2024-08-06 00:58 | XMS_ITS | Encounter Summary ---
Author Organization [facility] Address [address] [place] [address] Care Team Providers Care Brakeshoe Repairer Name Role Phone Emilee Cody MD Primary Care Provider + Reason for Visit * Reason Onset Date Comments Results 06/02/2017 Encounter Details Date Type Department Care Team (Late st Contact Info) Description 06/02/2017 Telephone [facility] Endocrinology - [facility] [address] [place] [address] Wilder Zaidi DO [address] [facility] [address] [place] [address] Results Social History Tobacco Use [...] Encounter - Jennifer Au RN - 06/03/2017 2602 EST Relayed to manager dialysis of [facility] the sodium results of 05/28 with no [...] [facility] Endocrinology - [facility] [address] [place] [address] Wilder Zaidi DO [address] [facility] [address] [place] [address] documented as of this encounter Visit Diagnoses Not on filedocumented in this encounter Care Teams Brakeshoe Repairer Relationship Specialty Start Date End Date Emilee Cody MD [address] [place] [address] PCP - General 03/15/16 09/29/18 documented as of this encounter
--- OUTSIDE RECORDS SUMMARY | 2024-08-06 00:58 | XMS_ITS | Encounter Summary ---
Author Organization [facility] Address [address] [place] [address] Care Team Providers Care Cable Installer Name Role Phone Emilee Cody MD Primary Care Provider + Reason for Visit * Reason Onset Date Comments Medication Questions 07/16/2016 Encounter Details Date Type Department Care Team (Late st Contact Info) Description 07/16/2016 Telephone [facility] Endocrinology - [facility] [address] [place] [address] Wilder Zaidi, [address] [facility] [address] [place] [address] Medication Questions Social History Tobacco [...] - 07/16/2016 1026 EST Script was filled Friday./OJSE * Telephone Encounter - Georgia Condon - [...] Office Visit [facility] Endocrinology - [facility] [address] [place] [address] Wilder Zaidi, [address] [facility] [address] [place] [address] documented as of this encounter Visit Diagnoses Not on filedocumented in this encounter Care Teams Cable Installer Relationship Specialty Start Date End Date Emilee Cody MD [address] [place] [address] PCP - General 03/15/16 09/29/18 documented as of this encounter
--- OUTSIDE RECORDS SUMMARY | 2024-08-06 00:58 | XMS_ITS | Encounter Summary ---
Author Organization [facility] Address [address] [place] [address] Care Team Providers Care Booth Cleaner Name Role Phone Ren Vaz MD Primary Care Provider [phone] Encounter Details Date Type Department Care Team (Late st Contact Info) Description 07/30/2019 Lab Requisition [facility] Pathology & Laboratory Medicine - [address] [address] Unknown, Provider, Social History Tobacco Use Types [...] Info) Description 10/01/2024 13:40 EDT Office Visit [facility] Endocrinology - [place] [address] [place], [place] [phone] Wilder Zaidi, [address] [place] [address] documented as of this encounter Procedures Procedure Name Priority Date/Time Associated Diagnosis Comments CALCIUM, IONIZED Routine 07/30/2019 11:5 9 EST documented in this encounter Results * CALCIUM, IONIZED (07/30/2019 11:59 EST) Calcium, Ionized 1.12 1.12 - 1.32 mmol/L 07/30/2019 16:51 EST [facility] Comment:Testing performed on heparinized plasma. Results may be biased 5% lower than that of whole blood. Blood VENOUS BLOOD / Unknown 07/30/2019 11:59 EST 07/30/2019 16:41 EST us Provider Unknown CHEMISTRY & BLOOD GAS ORDERA BLES Final Result Performing Organization Address City/State/[facility] Co de Phone Number [facility] [address] [place] [address] documented in this encounter Visit Diagnoses Not on filedocumented in this encounter Care Teams Booth Cleaner Relationship Specialty Start Date End Date Ren Vaz [place] [address] PCP - General 09/30/18 documented as of this encounter
--- OUTSIDE RECORDS SUMMARY | 2024-08-06 00:58 | XMS_ITS | Encounter Summary ---
Author Organization [facility] Address [address] [place] [address] Care Team Providers Care Slubber Runner Name Role Phone Ren Vaz MD Primary Care Provider [phone] Reason for Visit * Reason Comments Pituitary Abnormality Encounter Details Date Type Department Care Team (Latest Contact Info) Description 10/01/2018 13:20 EDT [facility] Visit [facility] End[facility]ology - [facility] [address] [place] [phone] Wilder Zaidi, DO [address] [facility] [address] [place] [address] Panhypopituitarism (HCC-CMS) (Primary Dx); Primary [...] e-mail with any scheduling issues ([email or web address]) documented in this encounter Progress Notes * [...] currently living in his own home in [place], [place]. He has 2 caretakers are with him 24 hours a day and administer all of his medications. Appears to be doing extremely well. This is the most interactive I seen Miguel Angel in any visit in the manyyears I been taking care of him. Unfortunately, Miguel Angel was hospitalized at [facility] from 09/02/2017 until 03/12/2018 due [...] his follow- up endocrinology visit at [facility]. ?? With regards to his [...] unchanged. No need to stress dose. His recruiting manager was able to articulate how and when [...] receive his endocrine care here at the [facility] despite living in [place]. However, if he is hospitalized he will likely be sent to [facility] and I be happy to coordinate with our endocrinology group as needed. documented in this encounter Plan of Treatment Upcoming Encounters Date Type Department Care Team (Late st Contact Info) Description 10/01/2024 13:40 EDT Office Visit [facility] Endocrinology - [facility] [address] [place], [place] [phone] Wilder Zaidi, 62 [facility] [address] [place] [address] documented [...] 07/06/2024 added in this encounter Care Teams Slubber Runner Relationship Specialty Start Date End Date Ren Vaz MD [address] [place] [address] PCP - General 09/30/18 documented as of this encounter
--- OUTSIDE RECORDS SUMMARY | 2024-08-06 00:58 | XMS_ITS | Encounter Summary ---
Author Organization [facility] Address [address] [place] [address] Care Team Providers Care Laboratory Equipment Cleaner Name Role Phone Ren Vaz MD Primary Care Provider [phone] Encounter Details Date Type Department Care Team (Late st Contact Info) Description 08/09/2019 Lab Requisition [facility] Pathology & Laboratory Medicine - [facility] [address] [place] [address] Mary Jo Eldridge, DO [address] [place], [place] [id number] Vomiting, unspecified; Adult hypertrophic pyloric stenosis; Unspecified [...] [facility] Endocrinology - [facility] [address] [place] [address] Wilder Zaidi, DO [address] [place] [address] documented as of this encounter [...] of consciousness of unspecified duration, initial encounter ([facility]) Other gastritis without bleeding documented in this [...] Organisms compatible with sarcina noted. 08/18/2019 12:07 [facility] at 1207 Diagnosis Comment Iron stain is negative for iron deposition (A2). 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 Clinical correlation is recommended. 08/18/2019 12:07 [facility] Clinical History Gastric outlet obstruction 08/18/2019 12:07 [facility] Attestation By the signature below, the attending physician certifies that they have personally conducted a gross and/or microscopic examination of the described specimens and rendered or confirmed the above diagnosis. 08/18/2019 12:07 [facility] at 1207 Gross Description [...] B1. Candice Anum 08/09/2019 16:08 08/18/2019 12:07 [facility] Scanned Images 08/18/2019 12:07 [facility] Tissue ENTIRE STOMACH / Unknown 08/08/2019 14:49 EST 08/09/2019 15:52 EST Tissue specimen (specimen) STOMACH STRUCTURE / Unknown 08/08/2019 14:49 EST 08/09/2019 15:52 EST us Mary Jo Eldridge DO PATHOLOGY ORDERABLES Final Re sult [facility] [address] [place] [address] documented in this encounter Visit Diagnoses Diagnosis Vomiting, unspecified Adult hypertrophic pyloric stenosis Acquired hypertrophic pyloric stenosis Unspecified convulsions ([facility]) Hypopituitarism ([facility]) Panhypopituitarism Cramp and spasm Gastro-esophageal reflux disease without esophagitis Esophageal reflux Diabetes insipidus ([facility]) Diabetes insipidus Fever, unspecified Other specified health status Transient alteration of awareness Unspecified intracranial injury with loss of consciousness of unspecified duration, initial encounter ([facility]) Other gastritis without bleeding documented in this encounter Care Teams Laboratory Equipment Cleaner Relationship Specialty Start Date End Date Ren Vaz MD [address] [place] [address] PCP - General 09/30/18 documented as of this encounter
--- OUTSIDE RECORDS SUMMARY | 2024-08-06 00:58 | XMS_ITS | Encounter Summary ---
Author Organization [facility] Address [address] [place] [address] Care Team Providers Care Sap Director Name Role Phone Ren Vaz MD Primary Care Provider [phone] Reason for Visit * Reason Onset Date Comments Appointment Related 11/19/2019 Encounter Details Date Type Department Care Team (Late st Contact Info) Description 11/19/2019 Telephone [facility] Endocrinology - [facility] [address] [place] [address] Wilder Zaidi, DO [address] [facility] [address] [place] [address] Appointment Related Social History Tobacco [...] Tomasa Merrill - 11/19/2019 1347 EDT 11/19/2019- [facility] for patient to call back to change 11/26/2019 Dr. Zaidi appointment to a televideo visit. documented in this encounter Plan of Treatment Upcoming Encounters Date Type Department Care Team (Late st Contact Info) Description 10/01/2024 13:40 EDT Office Visit [facility] Endocrinology - [address] [address] Wilder Zaidi, [address] [place] [address] [address] [place] [phone] documented as of this encounter Visit Diagnoses Not on filedocumented in this encounter Care Teams Sap Director Relationship Specialty Start Date End Date Ren Vaz MD [facility] [place] [address] PCP - General 09/30/18 documented as of this encounter
--- OUTSIDE RECORDS SUMMARY | 2024-08-06 00:58 | XMS_ITS | Encounter Summary ---
Author Organization [facility] Address [address] [place] [address] Care Team Providers Care Public Health Microbiologist Name Role Phone Ren Vaz MD Primary Care Provider [phone] Reason for Referral * (Routine/Next Available) - Receiving Office to Obtain Authorization Specialty Diagnoses / Procedures Referred By Contac t Referred To Contact Procedures XR OUTSIDE IMAGES DEXA Imaging, External Referral ID Status Reason Start Date Expiration Date Visits Requested Visits Authorized [id number] Receiving Office to Obtain Authorization 10/03/2023 1 1 Reason for Visit * (Routine/Next Available) - Receiving Office to Obtain Authorization Specialty Diagnoses / Procedures Referred By Contac t Referred To Contact Procedures XR OUTSIDE IMAGES DEXA Imaging, External Referral ID Status Reason Start Date Expiration Date Visits Requested Visits Authorized [id number] Receiving Office to Obtain Authorization 10/03/2023 1 1 Encounter Details Date Type Department Care Team (Latest Contact Info) Description 10/03/2023 15:30 EDT - 10/03/2023 23:59 EDT Hospital Encounter [facility] Radiology - [place] [address] [place], [place] [address] Discharge Disposition: Home or Self Care Social [...] Office Visit [facility] Endocrinology - [place] [address] [place], [place] [phone] Wilder Zaidi, DO [address] [place] [address] documented as of this encounter [...] filedocumented in this encounter Care Teams Public Health Microbiologist Relationship Specialty Start Date End Date Ren Vaz MD [place] [address] PCP - General 09/30/18 documented as of this encounter
--- OUTSIDE RECORDS SUMMARY | 2024-08-06 00:58 | XMS_ITS | Encounter Summary ---
Author Organization [facility] Address [address] [place] [address] Care Team Providers Care Resource Agent Name Role Phone Ren Vaz MD Primary Care Provider [phone] Encounter Details Date Type Department Care Team (Late st Contact Info) Description 07/30/2019 Lab Requisition [facility] Pathology & Laboratory Medicine - [address] [address] Unknown, Provider, Social History Tobacco Use Types [...] Visit [facility] Endocrinology - [place] [address] [place] [address] Wilder Zaidi, DO [address] [facility] [address] [place] [address] documented as of this encounter Procedures Procedure Name Priority Date/Time Associated Diagnosis Comments HEPATITIS C AB W REFLEX TO HCV RNA BY PCR Routine 07/30/2019 11:59 EST HEPATITIS B SURFACE ANTIGEN Routine 07/30/2019 11:59 EST documented in this encounter Results * HEPATITIS B SURFACE ANTIGEN (07/30/2019 11:59 EST) Hep B Surface Ag Negative Negative 08/02/2019 9:49 EST [facility] Blood VENOUS BLOOD / Unknown 07/30/2019 11:59 EST 07/30/2019 16:46 EST us Provider Unknown CHEMISTRY & BLOOD GAS ORDERA BLES Final Result Performing Organization Address City/[facility]/ZIP Co de Phone Number [facility] [address] [place] [address] * HEPATITIS C AB W REFLEX TO HCV RNA BY PCR (07/30/2019 11:59 EST) Hep C Antibody Negative Negative 08/02/2019 11:26 EST [facility] Blood VENOUS BLOOD / Unknown 07/30/2019 11:59 EST 07/30/2019 16:45 EST us Provider Unknown CHEMISTRY & BLOOD GAS ORDERA BLES Final Result Performing Organization Address City/[facility]/ZIP Co de Phone Number [facility] [address] [place] [address] documented in this encounter Visit Diagnoses Not on filedocumented in this encounter Care Teams Resource Agent Relationship Specialty Start Date End Date Ren Vaz [place] [address] PCP - General 09/30/18 documented as of this encounter
--- OUTSIDE RECORDS SUMMARY | 2024-08-06 00:58 | XMS_ITS | Encounter Summary ---
Author Organization [facility] Address [address] [place] [address] Care Team Providers Care Concession Attendant Name Role Phone Emilee Cody MD Primary Care Provider + Reason for Visit * Reason Onset Date Comments Prior Auth, Medication 07/12/2016 Levothyro xine 150 mcg needs 30 day overide thru Insurance Encounter Details Date Type Department Care Team (Late st Contact Info) Description 07/12/2016 Telephone [facility] Endocrinology - [facility] [address] [place] [address] Wilder Zaidi DO [address] [facility] [address] [place] [address] Prior Auth, Medication (Levothyroxine 150 [...] - 07/15/2016 1403 EST Rcvd fax from [place] [employer]icaid with APPROVAL for: Drug NDC # and Name: [id number] - LEvothyroxin tab 150 mcg Tracking #: [id number] PA #: [id number] Dates: 07/15/2016 - 07/15/2017 Qty / Days Supply Restrictions: 30.0 / 30 [place] Medicaid ID #: [id number] Called pharmacy - they already rcvd notice and script has been picked up. * Telephone Encounter - Lucía Bundy - 07/15/2016 1155 EST Completed [place] Medicaid [place] Request form and e-filed using [facility] to initiate this process. * Telephone Encounter [...] Visit [facility] Endocrinology - [address] [id number] Wilder Zaidi, [address] [facility] [address] [place] [address] documented as of this encounter Visit Diagnoses Not on filedocumented in this encounter Care Teams Concession Attendant Relationship Specialty Start Date End Date Emilee Cody MD [address] [place] [address] PCP - General 03/15/16 09/29/18 documented as of this encounter
--- OUTSIDE RECORDS SUMMARY | 2024-08-06 00:58 | XMS_ITS | Encounter Summary ---
Author Organization [facility] Address [address] [place] [address] Care Team Providers Care Production Analyst Name Role Phone Emilee Cody MD Primary Care Provider + Reason for Visit * Reason Onset Date Comments Prior Auth, Medication 08/05/2017 Encounter Details Date Type Department Care Team (Late st Contact Info) Description 08/05/2017 Telephone [facility] Endocrinology - [address] [id number] Emilee Cody MD [address] [place] [address] Prior Auth, Medication Social History Tobacco [...] - 08/08/2017 0831 EST Rcvd fax from [place] Medicaid with APPROVAL for Levothyroxine 150 mcg tablet. PA #: [id number] Dates: 08/07/2017 - 08/07/2018 Tracking #: [id number] Qty/Days Supply Restrictions: Called pharmacy to provide approval details. * Telephone Encounter - Lucía Bundy - 08/07/2017 1608 EST Completed [place] Medicaid [place] request form for levothyroxine blister pack and e-filed using [facility] to initiate this process. Response time is 3-5 days. To f/u, call [phone] * Telephone Encounter - Kristin Osman - 08/05/2017 1904 EST Rec sherrill from [facility] [address] [place] [address] Rx # [id number] Every Day /Blisster Pack LEVOTHYROXINE 150 MCG TAB QTY 30 PA NEEDED documented in this encounter Plan of Treatment Upcoming Encounters Date Type Department Care Team (Late st Contact Info) Description 10/01/2024 13:40 EDT Office Visit [facility] Endocrinology - [address] [phone] Wilder Zaidi, DO [address] [facility] [address] [place] [phone] documented as of this encounter Visit Diagnoses Not on filedocumented in this encounter Care Teams Production Analyst Relationship Specialty Start Date End Date Emilee Cody MD [address] [place] [address] PCP - General 03/15/16 09/29/18 documented as of this encounter
--- OUTSIDE RECORDS SUMMARY | 2024-08-06 00:58 | XMS_ITS | Encounter Summary ---
Author Organization [facility] Address [address] [place] [address] Care Team Providers Care Brim Pouncer Name Role Phone Ren Vaz MD Primary Care Provider [phone] Reason for Visit * Reason Onset Date Comments Referral Request 01/04/2020 referral for Bl ood draw in home Encounter Details Date Type Department Care Team (Late st Contact Info) Description 01/04/2020 Telephone [facility] Endocrinology - [facility] [address] [place] [address] Wilder Zaidi, DO [address] [facility] [address] [place] [address] Referral Request (referral for Blood [...] : [facility] Fax number : [phone] LESLEY COURTNEY RN 01/04/2020 11:42 * Telephone [...] [facility] Endocrinology - [address] [address] Wilder Zaidi, DO [address] [facility] [address] [place] [address] documented as of this encounter Visit Diagnoses Not on filedocumented in this encounter Care Teams Brim Pouncer Relationship Specialty Start Date End Date Ren Vaz MD [facility] [place] [address] PCP - General 09/30/18 documented as of this encounter
--- OUTSIDE RECORDS SUMMARY | 2024-08-06 00:58 | XMS_ITS | Encounter Summary ---
Author Organization [facility] Address [address] [place] [address] Care Team Providers Care Assistant Grocery Name Role Phone Emilee Cody MD Primary Care Provider + Reason for Visit * Reason Onset Date Comments Follow-up 12/19/2016 Encounter Details Date Type Department Care Team (Late st Contact Info) Description 12/19/2016 Telephone [facility] Endocrinology - [facility] [address] [place] [address] Wilder Zaidi DO [address] [facility] [address] [place] [address] Follow-up Social History Tobacco Use [...] 12/19/2016 1028 EDT Please contact the patient's care home. I reviewed his most recent sodium that was drawn on 12/18/2016 at [facility] and [place], [place]. His sodium was normal at 141. He should continue his current dose of DDAVP and current fluid levels. documented in this encounter Plan of Treatment Upcoming Encounters Date Type Department Care Team (Late st Contact Info) Description 10/01/2024 13:40 EDT Office Visit [facility] Endocrinology - [facility] [address] [place] [address] Wilder Zaidi DO [address] [facility] [address] [place] [address] documented as of this encounter Visit Diagnoses Not on filedocumented in this encounter Care Teams Assistant Grocery Relationship Specialty Start Date End Date Emilee Cody MD [address] [place] [address] PCP - General 03/15/16 09/29/18 documented as of this encounter
--- OUTSIDE RECORDS SUMMARY | 2024-08-06 00:58 | XMS_ITS | Encounter Summary ---
Author Organization [facility] Address [address] [place] [address] Care Team Providers Care Nurse Wound Name Role Phone Ren Vaz MD Primary Care Provider [phone] Reason for Visit * Reason Onset Date Comments Coordination Of Care 08/03/2024 Labs Only 08/03/2024 Encounter Details Date Type Department Care Team (Late st Contact Info) Description 08/03/2024 Telephone [facility] Endocrinology - [facility] [address] [place] [address] Wilder Zaidi, 62 [facility] [address] [place] [address] Coordination Of Care; Labs Only [...] printed and faxed to Doris Tate at [facility]. Ask lab be drawn before 08/06/24 and fasting not required. Aisha Villalta, RN * Telephone Encounter - Kristin Antonio - 08/03/2024 0842 EST DORIS TATE [phone] From [facility] Calling seeking coordination in RE to being notified that patient requires a redrawn of their SODIUM Aware that patient has lab draw scheduled 08/06/[address] [facility] Seeking order and parameters of request, including time frame of expected completion date [phone] documented in this encounter Plan of Treatment Upcoming Encounters Date Type Department Care Team (Late st Contact Info) Description 10/01/2024 13:40 EDT Office Visit [facility] Endocrinology - [facility] [address] [place], [place] [phone] Wilder Zaidi, 62 [facility] [address] [place] [address] documented as of this encounter Visit Diagnoses Not on filedocumented in this encounter Care Teams Nurse Wound Relationship Specialty Start Date End Date [place] [address] PCP - General 09/30/18 documented as of this encounter
--- OUTSIDE RECORDS SUMMARY | 2024-08-06 00:58 | XMS_ITS | Encounter Summary ---
Author Organization [facility] Address [address] [place] [address] Care Team Providers Care Sequencing Machine Operator Name Role Phone Emilee Cody MD Primary Care Provider + Ren Vaz MD Primary Care Provider Reason for Visit * Reason Onset Date Comments Medications Refill 08/07/2017 Encounter Details Date Type Department Care Team (Late st Contact Info) Description 08/07/2017 Refill [facility] Endocrinology [facility] [address] [place] [address] Carlito Paul MD [address] [place] [address] [address] [place] [address] Medications Refill Social History Tobacco [...] [facility] [address] [place] [address] Wilder Zaidi DO 62 [facility] [address] [place] [address] documented as of this encounter Visit Diagnoses Not on filedocumented in this encounter Care Teams Sequencing Machine Operator Relationship Specialty Start Date End Date Emilee Cody MD [address] [place] [address] PCP - General 03/15/16 09/29/18 Ren Vaz MD [address] [place] [address] [place] [address] PCP - General 09/30/18 documented as of this encounter
--- OUTSIDE RECORDS SUMMARY | 2024-08-06 00:58 | XMS_ITS | Encounter Summary ---
Author Organization [facility] Address [address] [place] [address] Care Team Providers Care Library Clerk Name Role Phone Ren Vaz MD Primary Care Provider [phone] Reason for Visit * Reason Comments Other Secondary adrenal in sufficiency * Referral (Routine) - Receiving Office to Obtain Authorization Specialty Diagnoses / Procedures Referred By Duyen bui Referred To Contact Endocrinology Diagnoses Panhypopituitarism (HCC-CMS) Ren Vaz MD [address] [place] [address] [place] [address] Phone: tel: fax: [facility] Endocrinology [address] [address] Phone: tel: fax: Referral ID Status Reason Start Date Expiration Date Visits Requested Visits Authorized [id number] Receiving Office to Obtain Authorization 1 1 Encounter Details Date Type Department Care Team (Latest Contact Info) Description 03/06/2023 15:00 EDT Office Visit [facility] Endocrinology [address] [address] Jono Sanchez MD [address] [place] [phone] Panhypopituitarism (HCC-CMS) (Primary Dx); Secondary adrenal insufficiency (HCC-CMS); Primary central diabetes insipidus (HCC-CMS); 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 No hospitalization No new med Current med [...] [facility] - [facility] [address] [place] [address] Wilder Zaidi, [address] [facility] [address] [place] [address] documented as of this [...] 03/03/2023 added in this encounter Care Teams Library Clerk Relationship Specialty Start Date End Date Ren Vaz MD [facility] [place] [address] PCP - General 09/30/18 documented as of this encounter
--- OUTSIDE RECORDS SUMMARY | 2024-08-06 00:58 | XMS_ITS | Encounter Summary ---
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) Procedures Wilder Clark, DO [address] [facility] [address] [place] [address] Phone: tel: fax: Referral ID Status Reason Start Date Expiration Date V isits Requested Visits Authorized [id number] New Request 07/06/2024 4 4 Encounter Details Date Type Department Care Team (Latest Contact Info) Description 07/06/2024 14:30 EST Phlebotomy Only [facility] Endocrinology - [facility] [address] [place] [address] Phlebotomy, [facility] Primary central diabetes insipidus (HCC-CMS); [...] Visit [facility] Endocrinology - [address] [address] Wilder Zaidi, [address] [place] [address] documented as of this encounter Procedures Procedure Name Priority Date/Time Associated Diagnosis Comments T4 FREE Routine 07/06/2024 14:44 EST Secondary hypothyroidism BASIC METABOLIC PANEL (BMP) Routine 07/06/2024 14:44 EST Primary central diabetes insipidus (HCC-CMS) documented in this encounter Results * T4 FREE (07/06/2024 14:44 EST) T4, Free 1.4 0.8 - 2.2 ng/dL 07/06/2024 18:52 [facility] Blood VENOUS BLOOD / Unknown Venipuncture / Unknown 07/06/2024 14:44 EST 07/06/2024 14:45 EST Wilder Zaidi DO CHEMISTRY & BLOOD GAS ORDERABLES Final Result [facility] [address] [place] [address] * BASIC METABOLIC PANEL (BMP) (07/06/2024 14:44 EST) Sodium 142 136 - 145 mmol/L 07/06/2024 18:31 [facility] Potassium 4.3 3.5 - 5.0 mmol/L 07/06/2024 18:31 [facility] Chloride 107 96 - 110 mmol/L 07/06/2024 18:31 [facility] CO2 Total 22 22 - 32 mmol/L 07/06/2024 18:31 [facility] Anion Gap 13 5 - 14 mmol/L 07/06/2024 18:31 [facility] Glucose 87 70 - 99 mg/dl 07/06/2024 18:31 [facility] Calcium 9.2 8.5 - 10.5 mg/dL 07/06/2024 18:31 [facility] BUN 17 10 - 26 mg/dL 07/06/2024 18:31 [facility] Creatinine 0.95 0.66 - 1.25 mg/dL 07/06/2024 18:31 [facility] eGFR 108 >60 mL/min/1.73 m2 07/06/2024 18:31 [facility] Blood VENOUS BLOOD / Unknown Venipuncture / Unknown 07/06/2024 14:44 EST 07/06/2024 14:45 EST Wilder Zaidi DO CHEMISTRY & BLOOD GAS ORDERABLES Final Result [facility] [address] [place] [address] documented in this encounter Visit Diagnoses Diagnosis Primary central diabetes insipidus (HCC-CMS) Diabetes insipidus Secondary hypothyroidism Other specified acquired hypothyroidism Panhypopituitarism (HCC-CMS) Panhypopituitarism documented in this encounter Care Teams Finance Business Manager Relationship Specialty Start Date End Date Ren Vaz MD [address] [facility] [facility] [place] [address] PCP - General 09/30/18 documented as of this encounter
--- OUTSIDE RECORDS SUMMARY | 2024-08-06 00:58 | XMS_ITS | Encounter Summary ---
Author Organization [facility] Address [address] [place] [address] Care Team Providers Care Senior Information Systems Architect Name Role Phone Emilee Cody MD Primary Care Provider + Reason for Visit * Reason Onset Date Comments Results 04/14/2017 Encounter Details Date Type Department Care Team (Late st Contact Info) Description 04/14/2017 Telephone [facility] Endocrinology - [address] [address] Hafsa Babcock RN [address] [place] [address] Results Social History Tobacco Use Types Packs/Day [...] Encounter - Hafsa Babcock RN - 04/14/2017 7224 EDT Called Patients' sister Bettina to inform her lab results within normal limits , No change in DDAVP dosage. Please extend information to senior living. documented in this encounter Plan of Treatment Upcoming Encounters Date Type Department Care Team (Late st Contact Info) Description 10/01/2024 13:40 EDT Office Visit [facility] Endocrinology - [address], [place] [id number] Wilder Zaidi DO [address] [place] [address] documented as of this encounter Visit Diagnoses Not on filedocumented in this encounter Care Teams Senior Information Systems Architect Relationship Specialty Start Date End Date Emilee Cody MD [address] [place] [address] PCP - General 03/15/16 09/29/18 documented as of this encounter
--- OUTSIDE RECORDS SUMMARY | 2024-08-06 00:58 | XMS_ITS | Encounter Summary ---
Author Organization [facility] Address [address] [place] [address] Care Team Providers Care Board Certified Orthodontist Name Role Phone Ren Vaz MD Primary Care Provider [phone] Reason for Referral * Radiology Services (Routine/Next Available) - Specialty Report Received Specialty Diagnoses / Procedures Referred By Duyen bui Referred To Contact Diagnoses History of pituitary surgery Craniopharyngioma (HCC-CMS) Procedures CT HEAD WO CONTRAST Day Littlejohn MD PhD Phone: tel: fax: Referral ID Status Reason Start Date Expiration Date V isits Requested Visits Authorized [id number] Specialty Report Received 09/04/2023 1 1 * Radiology Services (Routine/Next Available) - Specialty Report Received Specialty Diagnoses / Procedures Referred By Duyen bui Referred To Contact Diagnoses 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 Procedures DXA BONE DENSITY Day Littlejohn MD PhD Phone: tel: fax: Referral ID Status Reason Start Date Expiration Date V isits Requested Visits Authorized [id number] Specialty Report Received 1 1 Reason for Visit * Reason Comments Other Panhypopituitarism Encounter Details Date Type Department Care Team (Latest Contact Info) Description 09/04/2023 10:00 EST Office Visit [facility] Endocrinology - [facility] [address] [facility] [address] [place], [place] [phone] Day Littlejohn MD PhD [address] [facility] [facility] [address] [place] [address] 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); [...] and [address] hd-at [facility] ([facility]) Order a bone dexascan to see [...] mentation, seizure disorder. He lives in a detention, usually sees Dr. Zaidi. Central Diabetes Insipidus-On [...] risk due to vision/gait. Dexascan ordered at [facility]-warned may not have there. LOsat scan showed osteopenia-on Ca/D. Will update and see if worsening. CT ordered--will avoid MRI due to enclosure/noise that may startle him. Day Littlejohn MD PhD 09/04/2023 13:14 documented in this encounter Plan of Treatment Upcoming Encounters Date Type Department Care Team (Late st Contact Info) Description 10/01/2024 13:40 EDT Office Visit [facility] Endocrinology - [address] [place] [address] Shonjalyn Wilder Erik, [address] [facility] [address] [place] [address] Scheduled Orders Name Type Priority [...] daily. added in this encounter Care Teams Board Certified Orthodontist Relationship Specialty Start Date End Date Ren Vaz MD [facility] [place] [address] PCP - General 09/30/18 documented as of this encounter
--- OUTSIDE RECORDS SUMMARY | 2024-08-06 00:58 | XMS_ITS | Encounter Summary ---
Author Organization [facility] Address [address] [place] [address] Care Team Providers Care Needle Grinder Name Role Phone Ren Vza MD Primary Care Provider [phone] Reason for Visit * Reason Onset Date Comments Medication Questions 11/09/2020 Encounter Details Date Type Department Care Team (Late st Contact Info) Description 11/09/2020 Telephone [facility] Endocrinology - [facility] [address] [place] [address] Wilder Zaidi, [address] [facility] [address] [place] [address] Medication Questions Social History Tobacco [...] - 11/09/2020 1432 EDT Call to: Prachi pst manager Relayed Dr. Zaidi's message: Wilder Zaidi DO [...] - 11/09/2020 1109 EDT Caller is the machine adjuster leader case trim for patient, advising that the patient saw [...] Visit [facility] Endocrinology - [facility] [address] [place] [address] Wilder Zaidi, [address] [facility] [address] [place] [address] documented as of this encounter Visit Diagnoses Not on filedocumented in this encounter Care Teams Needle Grinder Relationship Specialty Start Date End Date Ren Vaz MD [place] [address] PCP - General 09/30/18 documented as of this encounter
--- OUTSIDE RECORDS SUMMARY | 2024-08-06 00:58 | XMS_ITS | Encounter Summary ---
Author Organization [facility] Address [address] [place] [address] Care Team Providers Care Enterprise Software Developer Name Role Phone Ren Vaz MD Primary Care Provider [phone] Reason for Visit * Reason Onset Date Comments Other 06/21/2024 Needs permission to discuss Follow-up 06/21/2024 Encounter Details Date Type Department Care Team (Late st Contact Info) Description 06/21/2024 Telephone [facility] Endocrinology - [facility] [address] [place] [address] Wilder Zaidi, [address] [facility] [address] [place] [address] Other (Needs permission to discuss); [...] Zaidi. Please call Bettina back to schedule [phone] * Telephone Encounter - Mavis Franco RN - 06/21/2024 1624 EST Images from the original note were not included. Spoke with Prachi at [facility]. Fax will be sent of [...] is currently in regarding lack of communication. Betitna requested new medical release forms to be mailed to her. Bettina reports Miguel Angel just got out of the ICU today. Bettina Before [address] [place] [address] Routing to Salud Burton, Dr. Zaidi, and [facility] carrie. MAVIS FRANCO RN 06/21/2024 17:02 * Telephone Encounter - Lucille Carmichael - 06/21/2024 1433 EST Bettina Burgos (sister) calling. Asking if patient is still seeing Dr Zaidi/when is next appt, etc. This person is not listed on his permission to discuss and entry writer could not give her any answers. Bettina because annoyed and asked that Dr. Zaidi call and speak with her directly. documented in this encounter Plan of Treatment Upcoming Encounters Date Type Department Care Team (Late st Contact Info) Description 10/01/2024 13:40 EDT Office Visit [facility] Endocrinology - [facility] [address] [place] [address] Wilder Zaidi, DO [address] [facility] [address] [place] [address] documented as of this encounter Visit Diagnoses Not on filedocumented in this encounter Care Teams Enterprise Software Developer Relationship Specialty Start Date End Date Ren Vaz MD [facility] [place] [address] PCP - General 09/30/18 documented as of this encounter
--- OUTSIDE RECORDS SUMMARY | 2024-08-06 00:58 | XMS_ITS | Encounter Summary ---
Author Organization [facility] Address [address] [place] [address] Care Team Providers Care Blocking Machine Tender Name Role Phone Ren Vaz MD Primary Care Provider Reason for Visit * Reason Onset Date Comments Coordination Of Care 03/24/2019 Encounter Details Date Type Department Care Team (Late st Contact Info) Description 03/24/2019 Telephone [facility] Endocrinology - [facility] [address] [place] [address] Wilder Zaidi, [address] [facility] [address] [place] [address] Coordination Of Care Social History [...] and go to the emergency department. Instructed database manager to call back with any questions. [...] 1313 EDT Called and left message for database manager to call back. * Telephone Encounter [...] and possibly have Dr. Zaidi call the [facility] but would like to speak to a nurse first Please call Evelyn back SHEEBA documented in this encounter Plan of Treatment Upcoming Encounters Date Type Department Care Team (Late st Contact Info) Description 10/01/2024 13:40 EDT Office Visit [facility] Endocrinology - [facility] [address] [place] [address] Wilder Zaidi, [address] [facility] [address] [place] [address] documented as of this encounter Visit Diagnoses Not on filedocumented in this encounter Care Teams Blocking Machine Tender Relationship Specialty Start Date End Date Ren Vaz MD [facility] [place] [address] PCP - General 09/30/18 documented as of this encounter
--- OUTSIDE RECORDS SUMMARY | 2024-08-06 00:58 | XMS_ITS | Encounter Summary ---
Author Organization [facility] Address [address] [place] [address] Care Team Providers Care Trimming Department Blocker Name Role Phone Ren Vaz MD Primary Care Provider [phone] Reason for Visit * Reason Onset Date Comments Coordination Of Care 01/05/2020 Encounter Details Date Type Department Care Team (Late st Contact Info) Description 01/05/2020 Telephone [facility] Endocrinology - [facility] [address] [place] [address] Wilder Zaidi, 62 [facility] [address] [place] [address] Coordination Of Care Social History [...] EDT [facility] * Telephone Encounter - Carmel Muniz - 01/05/2020 0908 EDT Raphael with [facility] following up on the referral. They have received it but need a [facility] problem list as well. Please fax to [phone]. documented in this encounter Plan of Treatment Upcoming Encounters Date Type Department Care Team (Late st Contact Info) Description 10/01/2024 13:40 EDT Office Visit [facility] Endocrinology - [facility] [address] [place] [address] Wilder Zaidi, 62 [facility] [address] [place] [address] documented as of this encounter Visit Diagnoses Not on filedocumented in this encounter Care Teams Trimming Department Blocker Relationship Specialty Start Date End Date Ren Vaz MD [facility] [place] [address] PCP - General 09/30/18 documented as of this encounter
--- OUTSIDE RECORDS SUMMARY | 2024-08-06 00:58 | XMS_ITS | Encounter Summary ---
Author Organization [facility] Address [address] [place] [address] Care Team Providers Care Perch Mender Name Role Phone Ren Vaz MD Primary Care Provider [phone] Reason for Visit * Reason Onset Date Comments Results 03/10/2019 Encounter Details Date Type Department Care Team (Late st Contact Info) Description 03/10/2019 Telephone [facility] Endocrinology - [facility] [address] [place] [address] Wilder Zaidi, DO [address] [facility] [address] [place] [address] Results Social History Tobacco Use [...] EDT Called and spoke with pt case technician and relayed Dr. Zaidi's message below: Please contact patient's caregivers. The patient Miguel Angel is nonverbal. Please advise him that I have reviewed his blood work obtained at [facility] drawn on 03/04/2019. His sodium was stable at 144. They should continue his current dose of DDAVP and fluid restriction. Repeat sodium in 3 months unless there is any significant changes in his behavior or urine output etc. Please advise his caretakers to contact me with any questions or concerns Patient case technician verbalized understanding. No barriers to learning noted. * Telephone Encounter - Wilder Zaidi Do - 03/10/2019 0933 EDT Please contact patient's caregivers. The patient Miguel Angel is nonverbal. Please advise him that I have reviewed his blood work obtained at [facility] drawn on 03/04/2019. His sodium was [...] EDT Office Visit [facility] Endocrinology - [facility] [address] [place] [address] Wilder Zaidi DO [address] [facility] [address] [place] [address] documented as of this encounter Visit Diagnoses Not on filedocumented in this encounter Care Teams Perch Mender Relationship Specialty Start Date [place] [address] PCP - General 09/30/18 documented as of this encounter
--- OUTSIDE RECORDS SUMMARY | 2024-08-06 00:58 | XMS_ITS | Encounter Summary ---
Author Organization [facility] Address [address] [place] [address] Care Team Providers Care Telephone Appointment Clerk Name Role Phone Emilee Cody MD Primary Care Provider + Ren Vaz MD Primary Care Provider [phone] Encounter Details Date Type Department Care Team (Late st Contact Info) Description 03/15/2018 Historical Results Only [facility] - Main [address] [address] Delfino Gallegos MD [address] [place] [address] [place] [address] Social History Tobacco Use Types Packs/Day [...] Office Visit [facility] Endocrinology - [facility] [address] [place] [address] Wilder Zaidi, 62 [facility] [address] [place] [address] documented as of this encounter Procedures Procedure Name Priority Date/Time Associated Diagnosis Comments SODIUM Routine 03/15/2018 16:50 EDT documented in this encounter Results * SODIUM (03/15/2018 16:50 EDT) Sodium 136 136 - 145 mEq/L 03/17/2018 10:41 EDT [facility] Comment: A waiver of liability has been signed and scanned into the patient's medical record. 03/15/2018 16:5 0 EDT 03/16/2018 10:05 EDT us Delfino Gallegos MD CHEMISTRY & BLOOD GAS OR DERABLES Final Result [facility] documented in this encounter Visit Diagnoses Not on filedocumented in this encounter Care Teams Telephone Appointment Clerk Relationship Specialty Start Date End Date Emilee Cody MD [address] [place] [address] PCP - General 03/15/16 09/29/18 Ren Vaz MD [facility] [place] [address] PCP - General 09/30/18 documented as of this encounter
--- OUTSIDE RECORDS SUMMARY | 2024-08-06 00:58 | XMS_ITS | Encounter Summary ---
Author Organization [facility] Address [address] [place] [address] Care Team Providers Care Beam House Inspector Name Role Phone Ren Vaz MD Primary Care Provider [phone] Reason for Referral * (Routine/Next Available) - Receiving Office to Obtain Authorization Specialty Diagnoses / Procedures Referred By Contac t Referred To Contact Procedures CT OUTSIDE IMAGES HEAD Imaging, External Referral ID Status Reason Start Date Expiration Date Visits Requested Visits Authorized [id number] Receiving Office to Obtain Authorization 10/03/2023 1 1 Reason for Visit * (Routine/Next Available) - Receiving Office to Obtain Authorization Specialty Diagnoses / Procedures Referred By Contac t Referred To Contact Procedures CT OUTSIDE IMAGES HEAD Imaging, External Referral ID Status Reason Start Date Expiration Date Visits Requested Visits Authorized [id number] Receiving Office to Obtain Authorization 10/03/2023 1 1 Encounter Details Date Type Department Care Team (Latest Contact Info) Description 10/03/2023 15:30 EDT - 10/03/2023 23:59 EDT Hospital Encounter [facility] Secondary Reads [place] Discharge Disposition: [...] Visit [facility] Endocrinology - [place] [address] [place] [address] Wilder Zaidi, DO [address] [address] [place] [address] documented as of this encounter [...] filedocumented in this encounter Care Teams Beam House Inspector Relationship Specialty Start Date End Date [place] [address] PCP - General 09/30/18 documented as of this encounter
--- OUTSIDE RECORDS SUMMARY | 2024-08-06 00:58 | XMS_ITS | Encounter Summary ---
Author Organization [facility] Address [address] [place] [address] Care Team Providers Care Take Away Man Name Role Phone Ren Vaz MD Primary Care Provider [phone] Reason for Visit * Reason Onset Date Comments Paperwork request 03/09/2024 Encounter Details Date Type Department Care Team (Late st Contact Info) Description 03/09/2024 Telephone [facility] Endocrinology - [address] [address] Day Littlejohn MD PhD [address] [facility] [address] [place] [address] Paperwork request Social History Tobacco [...] - Guillaume Pennington - 03/09/2024 1025 EDT Histological Illustrator faxed most recent office note to [phone] documented in this encounter Plan of Treatment Upcoming Encounters Date Type Department Care Team (Late st Contact Info) Description 10/01/2024 13:40 EDT Office Visit [facility] Endocrinology - [address] [id number] Wilder Zaidi, 62 [facility] [address] [place] [address] documented as of this encounter Visit Diagnoses Not on filedocumented in this encounter Care Teams Take Away Man Relationship Specialty Start Date End Date Ren Vaz MD [facility] [place] [address] PCP - General 09/30/18 documented as of this encounter
--- OUTSIDE RECORDS SUMMARY | 2024-08-06 00:58 | XMS_ITS | Encounter Summary ---
Author Organization [facility] Address [address] [place] [address] Care Team Providers Care Farmworker Machine Name Role Phone Ren Vaz MD Primary Care Provider [phone] Reason for Visit * Reason Onset Date Comments Follow-up 10/20/2023 Paperwork request 10/20/2023 Encounter Details Date Type Department Care Team (Late st Contact Info) Description 10/20/2023 Telephone [facility] Endocrinology - [address] [address] Day Littlejohn MD PhD [address] [place] [address] [place] [address] Follow-up; Paperwork request Social History Tobacco [...] EDT Printed and faxed MICKEY notes to [facility] Routing to Dr. Littlejohn re: f/u about DXA and head CT scan results. MAVIS FRANCO RN 10/21/2023 13:52 * Telephone Encounter - Laura Freeman - 10/20/2023 1121 EDT Endocrinology Incoming Call Reason for call: follow up and records Labs Request/Results If known, which test are you inquiring about? Head scan and bone density Where was your test performed (which lab)? [facility] What date was the test performed? september [...] Visit [facility] Endocrinology - [place] [address] [place], [place] [phone] Wilder Zaidi, DO [address] [place] [address] documented as of this encounter Visit Diagnoses Not on filedocumented in this encounter Care Teams Farmworker Machine Relationship Specialty Start Date End Date Ren Vaz MD [facility] [place] [address] PCP - General 09/30/18 documented as of this encounter
--- OUTSIDE RECORDS SUMMARY | 2024-08-06 00:58 | XMS_ITS | Encounter Summary ---
Author Organization [facility] Address [address] [place] [address] Care Team Providers Care Employee Development Director Name Role Phone Ren Vaz MD Primary Care Provider [phone] Reason for Visit * Reason Onset Date Comments Medication Management 08/02/2024 Encounter Details Date Type Department Care Team (Late st Contact Info) Description 08/02/2024 Telephone [facility] Endocrinology - [facility] [address] [place] [address] Wilder Zaidi, [address] [facility] [address] [place] [address] Medication Management Social History Tobacco [...] Please contact Bettina patient's sister and the [facility] patient [facility]. I reviewed his [...] Office Visit [facility] Endocrinology - [facility] [address] [place], [place] [phone] Wilder Zaidi DO [address] [facility] [address] [place] [address] Scheduled Orders Name Type Priority Associated Diagnoses Orde r Schedule SODIUM Lab Routine Secondary adrenal insufficiency (HCC-CMS) Expected: 08/02/2024 (Approximate), Expires: 08/02/2025 documented as of this encounter Visit Diagnoses Diagnosis Secondary adrenal insufficiency (HCC-CMS)- Primary Glucocorticoid deficiency documented in this encounter Care Teams Employee Development Director Relationship Specialty Start Date End Date Ren Vaz MD [facility] [address] PCP - General 09/30/18 documented as of this encounter
--- OUTSIDE RECORDS SUMMARY | 2024-08-06 00:58 | XMS_ITS | Encounter Summary ---
Author Organization [facility] Address [address] [place] [address] Care Team Providers Care Medical Communication Specialist Name Role Phone Emilee Cody MD Primary Care Provider + Reason for Visit * Reason Onset Date Comments Appointment Related 07/14/2018 cancelled 07/15 appt Encounter Details Date Type Department Care Team (Late st Contact Info) Description 07/14/2018 Telephone [facility] Endocrinology - [facility] [address] [place] [address] Wilder Zaidi DO [address] [facility] [address] [place] [address] Appointment Related (cancelled 07/15 [...] Artis - 07/14/2018 1703 EST Patients case technician called to cancel an appt for 07/[address] Zaidi as the patient also had an appt at [facility] Endocrinology for the same time documented in this encounter Plan of Treatment Upcoming Encounters Date Type Department Care Team (Late st Contact Info) Description 10/01/2024 13:40 EDT Office Visit [facility] Endocrinology - [facility] [address] [place] [address] Wilder Zaidi, [address] [facility] [address] [place] [address] documented as of this encounter Visit Diagnoses Not on filedocumented in this encounter Care Teams Medical Communication Specialist Relationship Specialty Start Date End Date Emilee Cody MD [address] [place] [address] PCP - General 03/15/16 09/29/18 documented as of this encounter
--- OUTSIDE RECORDS SUMMARY | 2024-08-06 00:58 | XMS_ITS | Encounter Summary ---
Author Organization [facility] Address [address] [place] [address] Care Team Providers Care Correctional Officer Chief Name Role Phone Emilee Cody MD Primary Care Provider + Reason for Visit * Reason Onset Date Comments Medications Refill 05/27/2017 Encounter Details Date Type Department Care Team (Late st Contact Info) Description 05/27/2017 Refill [facility] Endocrinology - [facility] [address] [place] [address] Wilder Zaidi, 62 [facility] [address] [place] [address] Medications Refill Social History Tobacco [...] Office Visit [facility] Endocrinology - [facility] [address] [place] [address] Wilder Zaidi, [address] [facility] [address] [place] [address] documented as of this encounter Visit Diagnoses Not on filedocumented in this encounter Discontinued Medications Medication Sig Discontinue Reason Start Date End Da te levothyroxine (SYNTHROID) 150 mcg tablet TAKE ONE TABLET BY MOUTH EVERY DAY/ Blister pack Reorder 07/12/2016 05/27/2017 documented as of this encounter Care Teams Correctional Officer Chief Relationship Specialty Start Date End Date Emilee Cody MD [address] [place] [address] PCP - General 03/15/16 09/29/18 documented as of this encounter
--- OUTSIDE RECORDS SUMMARY | 2024-08-06 00:58 | XMS_ITS | Encounter Summary ---
Author Organization [facility] Address [address] [place] [address] Care Team Providers Care Organic Chemistry Teacher Name Role Phone Ren Vaz MD Primary Care Provider [phone] Reason for Visit * Reason Onset Date Comments Requesting Sooner Appointment 05/21/2019 Patient Information Update 05/21/2019 Encounter Details Date Type Department Care Team (Late st Contact Info) Description 05/21/2019 Telephone [facility] Endocrinology - [address] [id number] Lesley Jeffrey RN Requesting Sooner Appointment; Patient [...] any day next week as I am regional engagement consultant and have no patients scheduled in the morning. Please send me an email confirming date and time of appointment so I can put on my calendar. * Telephone Encounter - Lesley Jeffrey RN - 05/21/2019 1059 EST Images from the original note were not included. Message received from PAC : Cam Pisano 10:29 []Hide copied text []Hover for details Communications Executive calling on behalf of client to get sooner FUR w/Dr Zaidi. Soonest this typewriter aligner could schedule was September 2019. ?? Stated patient had 'an incident' that would qualify him for sooner appt date and that Dr Zaidi knows about this patient's history and would want to see him sooner than that. ?? Asked for nurse to call her back as well as medical office scheduler for sooner appt date Returning call to caseworker intake 05/21/19 10:37 Slat Pickler and typewriter aligner identified that the patient that was to [...] that had originally been sent to this typewriter aligner LESLEY COURTNEY RN 05/21/2019 11:01 documented in this encounter Plan of Treatment Upcoming Encounters Date Type Department Care Team (Late st Contact Info) Description 10/01/2024 13:40 EDT Office Visit [facility] Endocrinology - [place] [address] [place] [address] Wilder Zaidi, DO [address] [place] [address] documented as of this encounter Visit Diagnoses Not on filedocumented in this encounter Care Teams Organic Chemistry Teacher Relationship Specialty Start Date End Date Ren Vaz MD [facility] [facility] [address] PCP - General 09/30/18 documented as of this encounter
--- OUTSIDE RECORDS SUMMARY | 2024-08-06 00:58 | XMS_ITS | Encounter Summary ---
Author Organization [facility] Address [address] [place] [address] Care Team Providers Care Senior Planning Analyst Name Role Phone Ren Vaz MD Primary Care Provider [phone] Reason for Visit * Reason Onset Date Comments Labs Only 03/03/2019 Encounter Details Date Type Department Care Team (Late st Contact Info) Description 03/03/[address] [facility] Endocrinology - [facility] [address] [place] [address] Wilder Zaidi, DO [address] [facility] [address] [place] [address] Labs Only Social History Tobacco [...] - Carlos Alberto Benitez RN - 03/03/2019 4584 EDT Called and left message for Evelyn relaying Dr. Zaidi's message below: Would have electrolytes drawn every 3 months with a as needed order if there is any significant change in behavior Standing lab orders for electrolytes faxed to [facility] as requested for Electrolytes as requested. Labs printed and faxed to [facility] * Telephone Encounter - Wilder Zaidi Do - 03/03/2019 2750 EDT Would have electrolytes drawn every 3 months with a as needed order if there is any significant change in behavior * Telephone Encounter - Alicia Chi - 03/03/2019 1423 EDT Per Evelyn, please fax lab orders to [facility] [phone]. 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
--- OUTSIDE RECORDS SUMMARY | 2024-08-06 00:58 | XMS_ITS | Encounter Summary ---
Author Organization [facility] Address [address] [place] [address] Care Team Providers Care Belt Changer Name Role Phone Ren Vaz MD Primary Care Provider [phone] Reason for Visit * Reason Comments Hypogonadism Encounter Details Date Type Department Care Team (Latest Contact Info) Description 03/04/2024 11:00 EDT Office Visit [facility] Endocrinology - [address] [id number] Day Littlejohn MD PhD [address] [facility] [address] [place] [address] Hypopituitarism involving multiple pituitary deficiencies [...] Miguel Angel Burgos Jr. 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
--- OUTSIDE RECORDS SUMMARY | 2024-08-06 00:58 | XMS_ITS | Encounter Summary ---
Author Organization [facility] Address [address] [place] [address] Care Team Providers Care Brush Washer Name Role Phone Ren Vaz MD Primary Care Provider [phone] Reason for Visit * Reason Onset Date Comments Home Health 01/12/2020 discuss other la b draws and flexeril Encounter Details Date Type Department Care Team (Late st Contact Info) Description 01/12/2020 Telephone [facility] Endocrinology - [facility] [address] [place] [address] Wilder Zaidi, 62 [facility] [address] [place] [address] Home Health (discuss other lab [...] Robin Baird - 01/12/2020 1449 EDT [facility] RN She megan labs today that were ordered. Ladonna doesn't know what else Miguel Angel would need [facility]. Also maybe In need for flexeril and should patient go through PCP for that . Please call to discuss. documented in this encounter Plan of Treatment Upcoming Encounters Date Type Department Care Team (Late st Contact Info) Description 10/01/2024 13:40 EDT Office Visit [facility] Endocrinology - [facility] [address] [place] [address] Wilder Zaidi, DO [address] [facility] [address] [place] [address] documented as of this encounter Visit Diagnoses Not on filedocumented in this encounter Care Teams Brush Washer Relationship Specialty Start Date End Date [place] [address] PCP - General 09/30/18 documented as of this encounter
--- OUTSIDE RECORDS SUMMARY | 2024-08-06 00:58 | XMS_ITS | Encounter Summary ---
Author Organization [facility] Address [address] [place] [address] Care Team Providers Care Rapid Extractor Operator Name Role Phone Emilee Cdoy MD Primary Care Provider + Reason for Visit * Reason Onset Date Comments Results 10/07/2016 done 10/04 Follow-up 10/09/2016 sodium results Encounter Details Date Type Department Care Team (Late st Contact Info) Description 10/07/2016 Telephone [facility] Endocrinology - [facility] [address] [place] [address] Wilder Zaidi, 62 [facility] [address] [place] [address] Results (done 10/04); Follow-up (sodium [...] 1335 EDT Please contact Lali at patient's fdc. His sodium on 10/04/16 was normal at 138 * Telephone Encounter - Maxine Roy - 10/09/2016 1110 EDT Lali @[facility] requesting sodium results. Lali made aware this was pending Dr. Zaidi's review. * Telephone Encounter - Jennifer Au, HEATHER - 10/07/2016 1353 EDT Spoke with Lali, do not have labs - will kimble them down at [facility]./Jose * Telephone Encounter - Arlene Monroy [...] System [facility] Endocrinology - [facility] [address] [place] [address] Wilder Zaidi DO [address] [facility] [address] [place] [address] documented as of this encounter Visit Diagnoses Not on filedocumented in this encounter Care Teams Rapid Extractor Operator Relationship Specialty Start Date End Date Emilee Cody MD [facility] [place] [address] PCP - General 03/15/16 09/29/18 documented as of this encounter
--- OUTSIDE RECORDS SUMMARY | 2024-08-06 00:58 | XMS_ITS | Encounter Summary ---
Author Organization [facility] Address [address] [place] [address] Care Team Providers Care Air Traffic Coordinator Name Role Phone Ren Vaz MD Primary Care Provider [phone] Reason for Visit * Reason Comments Pituitary Abnormality Encounter Details Date Type Department Care Team (Latest Contact Info) Description 11/26/2019 11:00 EDT Telemedicine [facility] Endocrinology - [facility] [address] [place] [address] Wilder Zaidi, DO [address] [facility] [address] [place] [address] Secondary adrenal insufficiency (HCC-CMS) (Primary [...] currently living in his own home in [place], [place]. He has 2 caretakers are with [...] imtiaz. Unfortunately, Miguel Angel was hospitalized at [facility] from 09/02/2017 until 03/12/2018 due to [...] as his follow- up endocrinology visit at [facility]. ?? With regards to his secondary [...] Repeat DEXA scan performed on 06/21/2019 at [facility] showed a Z score of -2.3 [...] [facility] despite living in [place]. 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
--- OUTSIDE RECORDS SUMMARY | 2024-08-06 00:58 | XMS_ITS | Encounter Summary ---
Author Organization [facility] Address [address] [place] [address] Care Team Providers Care Marketing Systems Manager Name Role Phone Emilee Cody MD Primary Care Provider + Reason for Visit * Reason Comments Pituitary Abnormality Encounter Details Date Type Department Care Team (Latest Contact Info) Description 10/31/2016 13:20 EDT Office Visit [facility] Endocrinology - [facility] [address] [place] [address] Wilder Zaidi, [address] [facility] [address] [place] [address] Panhypopituitarism (HCC-CMS) (Primary Dx); Primary [...] 2004. Miguel Angel was accompanied by the occupational therapist assistants of his care home. He has been living with 2 other [...] No need to str ess dose. His caretaker grounds was able to articulate how and when [...] seems stable. ?? 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 omeprazole (PRILOSEC) 20 mg capsule Take 2 Capsules by mouth daily. added in this encounter Care Teams Marketing Systems Manager Relationship Specialty Start Date End Date Emilee Cody MD [address] [place] [address] PCP - General 03/15/16 09/29/18 documented as of this encounter
--- OUTSIDE RECORDS SUMMARY | 2024-08-06 00:58 | XMS_ITS | Encounter Summary ---
Author Organization [facility] Address [address] [place] [address] Care Team Providers Care Commercial Energy Rater Name Role Phone Ren Vaz MD Primary Care Provider [phone] Reason for Visit * Reason Onset Date Comments Follow-up 01/04/2020 Encounter Details Date Type Department Care Team (Late st Contact Info) Description 01/04/2020 Telephone [facility] Endocrinology - [facility] [address] [place] [address] Wilder Zaidi, 62 [facility] [address] [place] [address] Follow-up Social History Tobacco Use [...] progress note printed. Both documents faxed to [phone] by this justowriter operator. Informed to call back if needs more information. LESLEY COURTNEY RN 01/04/2020 16:49 * Telephone Encounter - Lesley Jeffrey RN - 01/04/2020 1315 EDT Kwesi calling from [facility] 01/04/20 13:16 Need a referral to be able to draw the lab requisitions that were electronically faxed 01/04/20 by this just[address]riter operator. [facility] 1. Facility needs referral to be completed/signed by provider 2. Include last progress note 3. Attention : not necessary Kwesi will be faxing the referral to [phone]. The fax will be to this justowriter operator's attention. Referral received 01/04/20 at 12:18. Form will be handed to the provider. LESLEY COURTNEY RN 01/04/2020 13:21 * Telephone Encounter - Debbie Choudhary - 01/04/2020 1313 EDT Raphael calling back for Lesley. documented in this encounter Plan of Treatment Upcoming Encounters Date Type Department Care Team (Late st Contact Info) Description 10/01/2024 13:40 EDT Office Visit [facility] Endocrinology - [address] [address] Wilder Zaidi, DO 62 [facility] [address] [place] [address] documented as of this encounter Visit Diagnoses Not on filedocumented in this encounter Care Teams Commercial Energy Rater Relationship Specialty Start Date End Date Ren Vaz MD [address] [place] [address] PCP - General 09/30/18 documented as of this encounter
--- OUTSIDE RECORDS SUMMARY | 2024-08-06 00:59 | XMS_ITS | Encounter Summary ---
Author Organization [facility] Address [address] [place] [address] Care Team Providers Care Certified Tumor Registrar Name Role Phone Yossi Torres MD Primary Care Provider [phone] Reason for Visit * Reason Onset Date Comments Results 05/02/2015 Encounter Details Date Type Department Care Team (Late st Contact Info) Description 05/02/[address] [address] Gladys Huang RN Results Social [...] Info) Description 10/01/2024 13:40 EDT Office Visit [facility] Endocrinology [facility] [address] [place] [address] Wilder Zaidi, 62 [facility] [address] [place] [address] documented as of this encounter Visit Diagnoses Not on filedocumented in this encounter Care Teams Certified Tumor Registrar Relationship Specialty Start Date End Date Yossi Torres MD [address] [place] [address] [address] [place] [phone] PCP - General 04/17/11 03/14/16 documented as of this encounter
--- OUTSIDE RECORDS SUMMARY | 2024-08-06 00:59 | XMS_ITS | Encounter Summary ---
Author Organization [facility] Address [address] [place] [address] Care Team Providers Care Auto Mechanic Supervisor Name Role Phone Yossi Torres MD Primary Care Provider [phone] Reason for Visit * Reason Onset Date Comments Labs Only 01/29/2016 Results 01/31/2016 lab,7.22,[facility] Encounter Details Date Type Department Care Team (Late st Contact Info) Description 01/29/2016 Telephone [facility] Endocrinology - [address] [phone] Georgia Rice RN Labs Only; Results (lab,7.22,[facility]) Social History Tobacco Use Types Packs/Day Years [...] and repeat in 2 wks. [place] at longterm notified. * Telephone Encounter - Day Littlejohn MD - 01/31/2016 1710 EDT Repeat the Na done in [place] and found slip in Dr. Zaidi's box. Level is 133 ([phone])---but last few draws 141-146. In October his [...] if lab results from 01.25 done at [facility] are available yet. Per Dr. Dejuan Ho out sick and will ask a covering. Will call back as soon as she has an answer. Alicia Chi 01/31/2016 15:49 * Telephone Encounter - Georgia Rice RN - 01/29/2016 1234 EDT Received lab results from [facility] Resulted 01/26/16 Sodium-133 L ([id number]) documented in this encounter Plan of Treatment Upcoming Encounters Date Type Department Care Team (Late st Contact Info) Description 10/01/2024 13:40 EDT Office Visit [facility] Endocrinology - [place] [address] [place] [address] Wilder Zaidi, [address] [facility] [address] [place] [address] documented as of this encounter Visit Diagnoses Not on filedocumented in this encounter Care Teams Auto Mechanic Supervisor Relationship Specialty Start Date End Date Yossi Torres MD [address] [place] [address] [facility] [address] [place] [phone] PCP - General 04/17/11 03/14/16 documented as of this encounter
--- OUTSIDE RECORDS SUMMARY | 2024-08-06 00:59 | XMS_ITS | Encounter Summary ---
Author Organization [facility] Address [address] [place] [address] Care Team Providers Care Operator Receptionist Name Role Phone Yossi Torres MD Primary Care Provider [phone] Reason for Visit * Reason Onset Date Comments Appointment Related 02/06/2016 was schedule d for 03/18/16 Encounter Details Date Type Department Care Team (Late st Contact Info) Description 02/06/2016 Telephone [facility] Endocrinology - [facility] [address] [place] [address] Wilder Zaidi, 62 [facility] [address] [place] [address] Appointment Related (was scheduled for [...] EDT Reason for Call: Appointment Related Summary/Symptoms: [facility] is wondering when patient's upcoming appointment was. The 03/18/16 was canceled, and not only would they like a call when it is scheduled, but his sister Bettinaas well. Josefina Rivera 02/06/2016 15:04 documented in this encounter Plan of Treatment Upcoming Encounters Date Type Department Care Team (Late st Contact Info) Description 10/01/2024 13:40 EDT Office Visit [facility] Endocrinology - [facility] [address] [place] [address] Wilder Zaidi, [address] [facility] [address] [place] [phone] documented as of this encounter Visit Diagnoses Not on filedocumented in this encounter Care Teams Operator Receptionist Relationship Specialty Start Date End Date Yossi Torrse MD [address] [place] [address] [address] [place] [phone] PCP - General 04/17/11 03/14/16 documented as of this encounter
--- OUTSIDE RECORDS SUMMARY | 2024-08-06 00:59 | XMS_ITS | Encounter Summary ---
Author Organization [facility] Address [address] [place] [address] Care Team Providers Care Stock House Worker Name Role Phone Yossi Torres MD Primary Care Provider [phone] Reason for Visit * Reason Comments Labs Only Encounter Details Date Type Department Care Team (Latest Contact Info) Description 08/04/2014 15:15 EST Procedure visit [facility] Endocrinology - [address] [address] Unknown, Provider, Phlebotomy, [facility] Primary central diabetes insipidus (CMS-HCC) (HCC-CMS); [...] Description 10/01/2024 13:40 EDT Office Visit [facility] Endocrinology - [facility] [address] [place] [address] Wilder Zaidi, DO [address] [facility] [address] [place] [address] documented as of this encounter Procedures Procedure Name Priority Date/Time Associated Diagnosis Comments T3 FREE Routine 08/04/2014 15:24 EST Secondary hypothyroidism T4 FREE Routine 08/04/2014 15:24 EST Secondary hypothyroidism ELECTROLYTES Routine 08/04/2014 15:24 EST Primary central diabetes insipidus (CMS-HCC) (HCC-CMS) documented in this encounter Results * T3 FREE (08/04/2014 15:24 EST) T3, Free 2.5 2.3 - 4.2 pg/mL 08/04/2014 21:27 EST [facility] Blood specimen (specimen) BLOOD SPECIMEN / Unknown 08/04/2014 15:24 EST 08/04/2014 19:15 EST Wilder Zaidi DO CHEMISTRY & BLOOD GAS ORDERABLES Final Result Performing Organization Address City/State/[facility] Co de Phone Number [facility] [address] [place] [address] * T4 FREE (08/04/2014 15:24 EST) Free T4 1.4 0.8 - 1.8 ng/dl 08/04/2014 21:27 EST [facility] Blood specimen (specimen) BLOOD SPECIMEN / Unknown 08/04/2014 15:24 EST 08/04/2014 19:15 EST Wilder Zaiid DO CHEMISTRY & BLOOD GAS ORDERABLES Final Result Performing Organization Address City/State/[facility] Co de Phone Number [facility] [address] [place] [address] * (ABNORMAL) ELECTROLYTES (08/04/2014 15:24 EST) Sodium 125(L) 136 - 145 mEq/L 08/04/2014 20:16 EST [facility] Potassium 4.0 3.5 - 5.0 mEq/L 08/04/2014 20:16 EST [facility] Chloride 89(L) 96 - 110 mEq/L 08/04/2014 20:16 EST [facility] CO2 28 24 - 32 mEq/L 08/04/2014 20:16 EST [facility] Blood specimen (specimen) BLOOD SPECIMEN / Unknown 08/04/2014 15:24 EST 08/04/2014 19:15 EST Wilder Zaidi DO CHEMISTRY & BLOOD GAS ORDERABLES Final Result Performing Organization Address [facility] Co de Phone Number [facility] [address] [place] [address] documented in this encounter Visit Diagnoses Diagnosis Primary central diabetes insipidus (HCC-CMS) Diabetes insipidus Secondary hypothyroidism Other specified acquired hypothyroidism documented in this encounter Care Teams Stock House Worker Relationship Specialty Start Date End Date Yossi Torres MD [address] [place] [address] [address] [place] [phone] PCP - General 04/17/11 03/14/16 documented as of this encounter
--- OUTSIDE RECORDS SUMMARY | 2024-08-06 00:59 | XMS_ITS | Encounter Summary ---
Author Organization [facility] Address [address] [place] [address] Care Team Providers Care Cone Classifier Tender Name Role Phone Yossi Torres MD Primary Care Provider [phone] Reason for Visit * Reason Onset Date Comments Diarrhea 08/28/2015 2 days now Medication Questions 08/28/2015 Hydrocortis one Coordination Of Care 08/30/2015 Medication clarification Encounter Details Date Type Department Care Team (Late st Contact Info) Description 08/28/2015 Telephone [facility] Endocrinology - [facility] [address] [place] [address] Wilder Zaidi, 62 [facility] [address] [place] [address] Diarrhea (2 days now); Medication [...] EST Phone call to Belgica at the [facility] Miguel Angel is not having [...] Saenz - 08/30/2015 0820 EST Belgica from [facility] would like to verify the medication that Dr. Stanley wants them to increase the dose on. He continues to have diarrhea. Pls advise * Telephone Encounter - Gladys Huang RN - 08/29/2015 0922 EST Images from the original note were not included. Message Received: Yesterday ? Guerrero Gonzalez MD Sinclair, Barbara, RN ? Yes it should be doubled, the alf physician should be notified so that he finds out thecause of the diarrhea, double dose as long as she is sick Phone call to [facility]. Above message given. Erick Kidd no longer has diarrhea so will not double dose. Verbalized understanding. No barriers to understanding. * Telephone Encounter - Gladys Huang RN - 08/28/2015 1530 EST Phone call to Adriane at [facility]. Diarrhea since mid day yesterday. Today 4 times since 8 am. No other symptoms. Feeling ok. No fever. Eating well. Drinking good. Will send to Dr. Stanley for review. * Telephone Encounter - Alicia Chi - 08/28/2015 1501 EST Reason for Call: Diarrhea and Medication Questions Summary/Symptoms: Erick Forrest, caregiver at the [facility], pt has had diarrhea for 2 days now and pt's family is wondering if the hydrocortisone should be doubled. Adriane requesting a call back today when a moment. Please call her back at [phone] or [phone]. Alicia Chi 08/28/2015 15:01 documented in this encounter Plan of Treatment Upcoming Encounters Date Type Department Care Team (Late st Contact Info) Description 10/01/2024 13:40 EDT Office Visit [facility] Endocrinology - [facility] [address] [place] [address] Wilder Zaidi, [address] [facility] [address] [place] [address] documented as of this encounter Visit Diagnoses Not on filedocumented in this encounter Care Teams Cone Classifier Tender Relationship Specialty Start Date End Date Yossi Torres MD [address] [place] [address] [address] [place] [phone] PCP - General 04/17/11 03/14/16 documented as of this encounter
--- OUTSIDE RECORDS SUMMARY | 2024-08-06 00:59 | XMS_ITS | Encounter Summary ---
Author Organization [facility] Address [address] [place] [address] Care Team Providers Care Camp Assistant Name Role Phone Yossi Torres MD Primary Care Provider [phone] Emilee Cody MD Primary Care Provider + Reason for Visit * Reason Onset Date Comments Discuss Test Results 02/20/2015 Sodium Chec k last week Encounter Details Date Type Department Care Team (Late st Contact Info) Description 02/20/2015 Telephone [facility] Endocrinology - [facility] [address] [place] [address] Wilder Zaidi DO [address] [facility] [address] [place] [address] Discuss Test Results (Sodium Check [...] Encounter - Georgia Rice RN - 02/21/2015 5984 EDT Phone call to Lali Informed her [...] - 02/21/2015 1117 EDT Phone call to [facility] Resulted on 02/15/15 Sodium-141 * Telephone Encounter - Addie Burgess - 02/20/2015 1512 EDT Reason for Call: Discuss Test Results Summary/Symptoms: Please call Lali's mobile with Sodium check results. Addie Burgess 02/20/2015 15:12 * Telephone Encounter - Belgica Camara V. - 02/20/2015 1248 EDT Please call Jonatan or Lali at [facility] with Sodium Check results done at [place] last week. documented in this encounter Plan of Treatment Upcoming Encounters Date Type Department Care Team (Late st Contact Info) Description 10/01/2024 13:40 EDT Office Visit [facility] Endocrinology - [facility] [address] [place] [address] Wilder Zaidi DO [address] [facility] [address] [place] [address] documented as of this encounter Visit Diagnoses Not on filedocumented in this encounter Care Teams Camp Assistant Relationship Specialty Start Date End Date Yossi Torres MD [address] [place] [address] [address] [place] [address] PCP - General 04/17/11 03/14/16 Emilee Cody MD [address] [place] [address] PCP - General 03/15/16 09/29/18 documented as of this encounter
--- OUTSIDE RECORDS SUMMARY | 2024-08-06 00:59 | XMS_ITS | Encounter Summary ---
Author Organization [facility] Address [address] [place] [address] Care Team Providers Care Keyseater Operator Name Role Phone Yossi Torres MD Primary Care Provider [phone] Reason for Visit * Reason Onset Date Comments Discuss Test Results 06/20/201506/12 [facility] Encounter Details Date Type Department Care Team (Late st Contact Info) Description 06/20/2015 Telephone [facility] Endocrinology - [facility] [address] [place] [address] Wilder Zaidi DO [address] [facility] [address] [place] [address] Discuss Test Results (06/12 [facility] ) Social History Tobacco Use Types Packs/Day [...] Call: Discuss Test Results Summary/Symptoms: Lali from [facility] calling for results. States kabs were done 06/12 [facility]. Please call. Jen Sanchez 06/20/2015 15:22 documented in this encounter Plan of Treatment Upcoming Encounters Date Type Department Care Team (Late st Contact Info) Description 10/01/2024 13:40 EDT Office Visit [facility] Endocrinology - [facility] [address] [place] [address] Wilder Zaidi DO [address] [facility] [address] [place] [phone] documented as of this encounter Visit Diagnoses Not on filedocumented in this encounter Care Teams Keyseater Operator Relationship Specialty Start Date End Date Yossi Torres MD [address] [place] [address] [address] [place] [phone] PCP - General 04/17/11 03/14/16 documented as of this encounter
--- OUTSIDE RECORDS SUMMARY | 2024-08-06 00:59 | XMS_ITS | Encounter Summary ---
Author Organization [facility] Address [address] [place] [address] Care Team Providers Care Tan Room Supervisor Name Role Phone Emilee Cody MD Primary Care Provider + Reason for Visit * Reason Onset Date Comments Medications Refill 05/01/2016 Encounter Details Date Type Department Care Team (Late st Contact Info) Description 05/01/2016 Refill [facility] Endocrinology - [facility] [address] [place] [address] Wilder Zaidi, 62 [facility] [address] [place] [address] Medications Refill Social History Tobacco [...] Visit [facility] Endocrinology - [facility] [address] [place] [address] Wilder Zaidi, [address] [facility] [address] [place] [address] documented as of this encounter Visit Diagnoses Not on filedocumented in this encounter Discontinued Medications Medication Sig Discontinue Reason Start Date End Da te levothyroxine (SYNTHROID) 150 mcg tablet TAKE ONE TABLET BY MOUTH EVERY DAY Reorder 03/18/2016 05/01/2016 documented as of this encounter Care Teams Tan Room Supervisor Relationship Specialty Start Date End Date Emilee Cody MD [address] [place] [address] PCP - General 03/15/16 09/29/18 documented as of this encounter
--- OUTSIDE RECORDS SUMMARY | 2024-08-06 00:59 | XMS_ITS | Encounter Summary ---
Author Organization [facility] Address [address] [place] [address] Care Team Providers Care Garde Manger Name Role Phone Yossi Torres MD Primary Care Provider +[phone] Reason for Visit * Reason Onset Date Comments Prior Auth, Medication 01/17/2015 Encounter Details Date Type Department Care Team (Late st Contact Info) Description 01/17/2015 Telephone [facility] End[facility]ology - [facility] [address] [place] [address] Wilder Zaidi, [address] [facility] [address] [place] [address] Prior Auth, Medication Social History [...] - 01/19/2015 1650 EDT Lisseth fax from [place] Medicaid with APPROVAL for: Drug NDC # and Name: [id number] - Levothyroxin Tab 150 mcg Tracking #: [id number] PA #: [id number] Dates: 01/19/2015- 01/20/2016 Qty / Days Supply Restrictions: [place] Medicaid ID#: [id number] Called Pharmacy and they had all ready blister packed and ready to go as soon as we provided approval. * Telephone Encounter - Lucía Bundy - 01/18/2015 1104 EDT [facility] signed form back from Dr. Zaidi and faxed to [place] Medicaid at [phone] to initiate PA process. * Telephone Encounter - Dina Otero - 01/17/2015 1712 EDT Received fax for Levothyroxine override to blister pack - the pharmacy indicates the patient lives in a chcf and they can only fill 30 day supply at a time. Completed [place] Exception to required 90 day maintenance medication fill form & provided to Dr. Zaidi for signature. * Telephone Encounter - Gladys Willingham - 01/17/2015 0908 EDT Reason for Call: Prior Auth, Medication Summary/SymptomsPt said that [facility] needs PA for levothyroxine 30 day supply not 90 day supply for bubble wrap. Please call if you have questions. Onset and Duration? na Urgent? Gladys Willingham 01/17/2015 9:08 documented in this encounter Plan of Treatment Upcoming Encounters Date Type Department Care Team (Late st Contact Info) Description 10/01/2024 13:40 EDT Office Visit [facility] - [facility] [address] [place] [address] Wilder Zaidi, DO [address] [facility] [address] [place] [address] documented as of this encounter Visit Diagnoses Not on filedocumented in this encounter Care Teams Garde Manger Relationship Specialty Start Date End Date Yossi Torres MD [address] [place] [address] [address] [place] [phone] PCP - General 04/17/11 03/14/16 documented as of this encounter
--- OUTSIDE RECORDS SUMMARY | 2024-08-06 00:59 | XMS_ITS | Encounter Summary ---
Author Organization [facility] Address [address] [place] [address] Care Team Providers Care Spring Winder Name Role Phone Yossi Trores MD Primary Care Provider [phone]- [phone] Reason for Visit * Reason Onset Date Comments Labs Only 01/18/2015 Sodium results Encounter Details Date Type Department Care Team (Late st Contact Info) Description 01/18/2015 Telephone [facility] Endocrinology - [facility] [address] [place] [address] Wilder Zaidi DO [address] [facility] [address] [place] [address] Labs Only (Sodium results ) [...] Results and plan reviewed with staff at [facility]. * Telephone Encounter - Hayley Odonnell - 01/18/2015 1210 EDT Reason for Call: Labs Only Summary/Symptoms: [facility] called to verify sodium labs had been received. Requested call back. Hayley Odonnell 01/18/2015 12:10 documented in this encounter Plan of Treatment Upcoming Encounters Date Type Department Care Team (Late st Contact Info) Description 10/01/2024 13:40 EDT Office Visit [facility] Endocrinology - [facility] [address] [place] [address] Wilder Zaidi, [address] [facility] [address] [place] [address] documented as of this encounter Visit Diagnoses Not on filedocumented in this encounter Care Teams Spring Winder Relationship Specialty Start Date End Date Yossi Torres MD [address] [place] [address] [address] [place] [phone] PCP - General 04/17/11 03/14/16 documented as of this encounter
--- OUTSIDE RECORDS SUMMARY | 2024-08-06 00:59 | XMS_ITS | Encounter Summary ---
Author Organization [facility] Address [address] [place] [address] Care Team Providers Care Ball Maker Name Role Phone Yossi Torres MD Primary Care Provider [phone] Reason for Visit * Reason Onset Date Comments Prior Auth, Medication 03/15/2015 Androgel Encounter Details Date Type Department Care Team (Late st Contact Info) Description 03/15/2015 Telephone [facility] Endocrinology - [facility] [address] [place] [address] Wilder Zaidi, 62 [facility] [address] [place] [address] Prior Auth, Medication (Androgel) Social [...] for: Androgel Gel 1.62%, 150/30 days Drug [facility]#: [id number] Tracking Number: [id number] Dates: 03/15/2015 to 03/15/2016 PA #: [id number] Called pharmacy & left message with patients sister that androgel has been approved. * Telephone Encounter - RockLucía - 03/15/2015 1457 EDT Rcvd fax from pharmacy requesting PA for Androgel - completed [place] Medicaid PA Form using [employer] and e-filed to initiate process. documented in this encounter Plan of Treatment Upcoming Encounters Date Type Department Care Team (Late st Contact Info) Description 10/01/2024 13:40 EDT Office Visit [facility] Endocrinology - [address] [address] Wilder Zaidi, 62 [facility] [address] [place] [address] documented as of this encounter Visit Diagnoses Not on filedocumented in this encounter Care Teams Ball Maker Relationship Specialty Start Date End Date Yossi Torres MD [address] [place] [address] [address] [place] [phone] PCP - General 04/17/11 03/14/16 documented as of this encounter
--- OUTSIDE RECORDS SUMMARY | 2024-08-06 00:59 | XMS_ITS | Encounter Summary ---
Author Organization [facility] Address [address] [place] [address] Care Team Providers Care Communications Tower Technician Name Role Phone Yossi Torres MD Primary Care Provider [phone] Reason for Visit * Reason Onset Date Comments Abnormal Lab 09/12/2013 Encounter Details Date Type Department Care Team (Late st Contact Info) Description 09/12/2013 Telephone [facility] Endocrinology - [facility] [address] [place] [address] Day Littlejohn MD PhD [address] [facility] [address] [place] [address] Abnormal Lab Social History Tobacco [...] Encounter - Day Littlejohn MD - 09/12/2013 6068 EDT Called from [facility] that [...] Office Visit [facility] Endocrinology - [facility] [address] [place] [address] Wilder Zaidi, 62 [facility] [address] [place] [address] documented as of this encounter Visit Diagnoses Not on filedocumented in this encounter Care Teams Communications Tower Technician Relationship Specialty Start Date End Date Yossi Torres MD [address] [place] [address] 2 [place] [phone] PCP - General 04/17/11 03/14/16 documented as of this encounter
--- OUTSIDE RECORDS SUMMARY | 2024-08-06 00:59 | XMS_ITS | Encounter Summary ---
Author Organization [facility] Address [address] [place] [address] Care Team Providers Care Running Rigger Name Role Phone Yossi Torres MD Primary Care Provider [phone] Emilee Cody MD Primary Care Provider + Reason for Visit * Reason Onset Date Comments Results 08/05/2014 Encounter Details Date Type Department Care Team (Late st Contact Info) Description 08/05/2014 Telephone [facility] Endocrinology - [facility] [address] [place] [address] Wilder Zaidi DO [address] [facility] [address] [place] [address] Results Social History Tobacco Use [...] Encounter - Wilder Zaidi DO - 08/05/2014 4032 EST Spoke with sister. They held his [...] patient's most recent laboratory results from the [facility] dated 08/04/14 . Advise patient that [...] Visit [facility] Endocrinology - [facility] [address] [place] [address] Wilder Zaidi DO [address] [facility] [address] [place] [address] documented as of this encounter Visit Diagnoses Not on filedocumented in this encounter Care Teams Running Rigger Relationship Specialty Start Date End Date Yossi Torres MD [address] [place] [address] [address] [place] [address] PCP - General 04/17/11 03/14/16 Emilee Cody MD [address] [place] [address] PCP - General 03/15/16 09/29/18 documented as of this encounter
--- OUTSIDE RECORDS SUMMARY | 2024-08-06 00:59 | XMS_ITS | Encounter Summary ---
Author Organization [facility] Address [address] [place] [address] Care Team Providers Care Claim Benefit Specialist Name Role Phone Yossi Torres MD Primary Care Provider [phone] Reason for Visit * Reason Onset Date Comments Update 09/13/2013 Encounter Details Date Type Department Care Team (Late st Contact Info) Description 09/13/2013 Telephone [facility] Endocrinology - [facility] [address] [place] [id number] Wilder Zaidi, 62 [facility] [address] [place] [address] Update Social History Tobacco Use [facility] [place] [address] [place] [address] Wilder Zaidi, DO [address] [facility] [address] [place] [address] documented as of this encounter Visit Diagnoses Not on filedocumented in this encounter Care Teams Claim Benefit Specialist Relationship Specialty Start Date End Date Yossi Torres MD [address] [place] [address] [facility] 2 [place] [phone] PCP - General 04/17/11 03/14/16 documented as of this encounter
--- OUTSIDE RECORDS SUMMARY | 2024-08-06 00:59 | XMS_ITS | Encounter Summary ---
Author Organization [facility] Address [address] [place] [address] Care Team Providers Care Bi Data Architect Name Role Phone Yossi Torres MD Primary Care Provider [phone] Reason for Visit * Reason Comments Seizures * Referral (Routine) - Closed Specialty Diagnoses / Procedures Referred By Duyen bui Referred To Contact Neurology Diagnoses Seizure ([facility]) Yossi Torres MD Phone: tel: fax: [facility] [address] [place] [address] Phone: tel: fax: Referral ID Status Reason Start Date Expiration Date Visits Re quested Visits Authorized [id number] Closed 1 1 Encounter Details Date Type Department Care Team (Late st Contact Info) Description 12/27/2014 10:30 EDT Office Visit [facility] [address] [place], [place] [id number] Dioni Jovel MD [address] [place] [address] Seizure disorder ([facility]) (Primary Dx) Social History Tobacco Use [...] Jovel MD - 12/27/2014 1207 EDT [facility] NEUROLOGY CONSULTATION - 12/27/2014 HISTORY: The patient is a 24-year-old right-handed gentleman seen at request of Dr Torres for evaluation of seizures. The patient was accompanied by his guardian and housekeeping staff. I also reviewed records from [facility]. The patient's past medical history is [...] he was with home provider in the [facility] he had a spell where he was [...] general anesthesia. 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 He will follow with me in a few months or sooner if problems come. Dioni Jovel MD 11 13 AM - Dioni Jovel MD cn Dictation ID: [id number] documented in this encounter Plan of Treatment Upcoming Encounters Date Type Department Care Team (Late st Contact Info) Description 10/01/2024 13:40 EDT Office Visit [facility] Endocrinology - [place] [address] [place] [address] Wilder Zaidi, 62 [facility] [address] [place] [address] documented as of this encounter Visit Diagnoses Diagnosis Seizure disorder ([facility])- Primary Unspecified epilepsy without mention of intractable epilepsy documented in this encounter Discontinued Medications Medication Sig Discontinue Reason Start Date End Da te ZONISAMIDE ORAL Take 75 mg by mouth at bedtime. 08/24/2010 12/27/2014 documented as of this encounter Care Teams Bi Data Architect Relationship Specialty Start Date End Date Yossi Torres MD [address] [place] [address] [address] [place] [phone] PCP - General 04/17/11 03/14/16 documented as of this encounter
--- OUTSIDE RECORDS SUMMARY | 2024-08-06 00:59 | XMS_ITS | Encounter Summary ---
Author Organization [facility] Address [address] [place] [address] Care Team Providers Care Foundry Process Engineer Name Role Phone Emilee Cody MD Primary Care Provider + Reason for Visit * Reason Onset Date Comments Update 04/08/2016 Going to ED Sinus Problems 04/08/2016 Difficulty Walking 04/08/2016 Encounter Details Date Type Department Care Team (Late st Contact Info) Description 04/08/2016 Telephone [facility] Endocrinology - [facility] [address] [place] [address] Wilder Zaidi, [address] [facility] [address] [place] [address] Update (Going to ED); Sinus [...] 10/01/2024 13:40 EDT Office Visit [facility] Endocrinology - [address] [address] Wilder Zaidi DO [address] [facility] [address] [place] [address] documented as of this encounter Visit Diagnoses Not on filedocumented in this encounter Care Teams Foundry Process Engineer Relationship Specialty Start Date End Date Emilee Cody MD [address] [place] [address] PCP - General 03/15/16 09/29/18 documented as of this encounter
--- OUTSIDE RECORDS SUMMARY | 2024-08-06 00:59 | XMS_ITS | Encounter Summary ---
Author Organization [facility] Address [address] [place] [address] Care Team Providers Care Lubrication Supervisor Name Role Phone Yossi Torres MD Primary Care Provider [phone] Reason for Visit * Reason Onset Date Comments Labs Only 01/10/2015 Returning Call 01/10/2015 [place] Encounter Details Date Type Department Care Team (Late st Contact Info) Description 01/10/2015 Telephone [facility] Endocrinology - [facility] [address] [place] [address] Wilder Zaidi, 62 [facility] [address] [place] [address] Labs Only; Returning Call ([place]) [...] 01/10/2015 1603 EDT 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 They did increase his fluids to 70 [...] - 01/10/2015 1313 EDT [address] call to [facility] lab. 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
--- OUTSIDE RECORDS SUMMARY | 2024-08-06 00:59 | XMS_ITS | Encounter Summary ---
Author Organization [facility] Address [address] [place] [address] Care Team Providers Care Baggage Security Checker Name Role Phone Emilee Cody MD Primary Care Provider + Reason for Visit * Reason Onset Date Comments Orders (Non Pre-visit) 06/21/2016 Encounter Details Date Type Department Care Team (Late st Contact Info) Description 06/21/2016 Telephone [facility] Endocrinology - [facility] [address] [place] [address] Wilder Zaidi, 62 [facility] [address] [place] [address] Orders (Non Pre-visit) Social History [...] Encounter - Jennifer Au RN - 06/21/2016 1153 EST Lab orders faxed as requested./JOSE * Telephone Encounter - Gladys Willingham - 06/21/2016 9330 EST Reason for Call: Orders (Non Pre-visit) Summary/Symptoms: Pt needs lab orders faxed to [facility][1] @ [phone]. 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
--- OUTSIDE RECORDS SUMMARY | 2024-08-06 00:59 | XMS_ITS | Encounter Summary ---
Author Organization [facility] Address [address] [place] [address] Care Team Providers Care Rough Rib Grader Name Role Phone Yossi Torres MD Primary Care Provider [phone] Reason for Visit * Reason Onset Date Comments Letter for School/Work 10/17/2014 Encounter Details Date Type Department Care Team (Late st Contact Info) Description 10/17/2014 Telephone [facility] Endocrinology - [facility] [address] [place] [address] Belgica Chavez CDE [address] [facility] [address] [place] [address] Letter for School/Work Social History [...] - 10/19/2014 1122 EDT Faxed letter to [facility] [employer]. * Telephone Encounter - Wilder Zaidi DO - 10/17/2014 6258 EDT Please type up letter for me [...] Office Visit [facility] Endocrinology - [facility] [address] [place], [place] [phone] Wilder Zaidi DO [address] [facility] [address] [place] [address] documented as of this encounter Visit Diagnoses Not on filedocumented in this encounter Care Teams Rough Rib Grader Relationship Specialty Start Date End Date Yossi Torres MD [address] [place] [address] [address] [place] [phone] PCP - General 04/17/11 03/14/16 documented as of this encounter
--- OUTSIDE RECORDS SUMMARY | 2024-08-06 00:59 | XMS_ITS | Encounter Summary ---
Author Organization [facility] Address [address] [place] [address] Care Team Providers Care Assembly Technician Name Role Phone Yossi Torres MD Primary Care Provider [phone]- [phone] Reason for Visit * Reason Onset Date Comments Results 08/04/2014 Encounter Details Date Type Department Care Team (Late Contact Info) Description 08/04/2014 Telephone [facility] Endocrinology - [facility] [address] [place] [address] Wilder Zaidi, 62 [facility] [address] [place] [address] Results Social History Tobacco Use [...] Visit [facility] Endocrinology - [place] [address] [place], [place] [phone] Wilder Zaidi, DO [address] [facility] [address] [place] [address] documented as of this encounter Visit Diagnoses Not on filedocumented in this encounter Care Teams Assembly Technician Relationship Specialty Start Date End Date Yossi Torres MD [address] [place] [address] [address] [place] [phone] PCP - General 04/17/11 03/14/16 documented as of this encounter
--- OUTSIDE RECORDS SUMMARY | 2024-08-06 00:59 | XMS_ITS | Encounter Summary ---
Author Organization [facility] Address [address] [place] [address] Care Team Providers Care Steel Wheel Engraver Name Role Phone Yossi Torres MD Primary Care Provider Reason for Visit * Reason Onset Date Comments Labs Only 08/24/2015 Encounter Details Date Type Department Care Team (Late st Contact Info) Description 08/24/2015 Telephone [facility] Endocrinology - [facility] [address] [place] [address] Wilder Zaidi DO 62 [facility] [address] [place] [address] Labs Only Social History Tobacco [...] call to Amy. [place] detailed message on [employer]. Call back if any questions or problems. [...] had labs drawn on 08/14/[address] [facility], called for results. Not in [employer]ISM. Georgia Condon 08/24/2015 13:47 documented in this encounter Plan of Treatment Upcoming Encounters Date Type Department Care Team (Late st Contact Info) Description 10/01/2024 13:40 EDT Office Visit [facility] Endocrinology - [facility] [address] [place] [address] Wilder Zaidi DO [address] [facility] [address] [place] [address] documented as of this encounter Visit Diagnoses Not on filedocumented in this encounter Care Teams Steel Wheel Engraver Relationship Specialty Start Date End Date Yossi Torres MD [address] [place] [address] [address] [place] [phone] PCP - General 04/17/11 03/14/16 documented as of this encounter
--- OUTSIDE RECORDS SUMMARY | 2024-08-06 00:59 | XMS_ITS | Encounter Summary ---
Author Organization [facility] Address [address] [place] [address] Care Team Providers Care Impregnator Helper Name Role Phone Yossi Torres MD Primary Care Provider +[phone] Reason for Visit * Reason Onset Date Comments Medications Refill 05/03/2015 Encounter Details Date Type Department Care Team (Late st Contact Info) Description 05/03/2015 Refill [facility] Endocrinology - [facility] [address] [place] [address] Wilder Zaidi, 62 [facility] [address] [place] [address] Medications Refill Social History Tobacco [...] Requested: Levothyroxine 150mcg Pharmacy: [facility] Last Refill Date: 08/25/14 Last Visit Date: 08/04/14 Next Visit Date: 10/23/2015 Is patient out of medication? Dinorah Burgess 05/03/2015 9:56 documented in this encounter Plan of Treatment Upcoming Encounters Date Type Department Care Team (Late st Contact Info) Description 10/01/2024 13:40 EDT Office Visit [facility] Endocrinology - [facility] [address] [place] [address] Wilder Zaidi, [address] [facility] [address] [place] [address] documented as of this encounter Visit Diagnoses Not on filedocumented in this encounter Discontinued Medications Medication Sig Discontinue Reason Start Date End Da te levothyroxine (SYNTHROID) 150 mcg tablet TAKE ONE TABLET BY MOUTH EVERY DAY Reorder 08/25/2014 05/03/2015 documented as of this encounter Care Teams Impregnator Helper Relationship Specialty Start Date End Date Yossi Torres MD [address] [place] [address] [address] [place] [address] PCP - General 04/17/11 03/14/16 documented as of this encounter
--- OUTSIDE RECORDS SUMMARY | 2024-08-06 00:59 | XMS_ITS | Encounter Summary ---
Author Organization [facility] Address [address] [place] [address] Care Team Providers Care Players Assistant Name Role Phone Emilee Cody MD Primary Care Provider + Reason for Visit * Reason Onset Date Comments Prior Auth, Medication 06/14/2016 Levothyro xine Encounter Details Date Type Department Care Team (Late st Contact Info) Description 06/14/2016 Telephone [facility] Endocrinology - [facility] [address] [place] [address] Wilder Zaidi, 62 [facility] [address] [place] [address] Prior Auth, Medication (Levothyroxine) Social [...] EDT Office Visit [facility] Endocrinology - [facility] [address] [place], [place] [id number] Wilder Zaidi, [address] [facility] [address] [place] [address] documented as of this encounter Visit Diagnoses Not on filedocumented in this encounter Discontinued Medications Medication Sig Discontinue Reason Start Date End Da te levothyroxine (SYNTHROID) 150 mcg tablet TAKE ONE TABLET BY MOUTH EVERY DAY Reorder 05/01/2016 06/14/2016 documented as of this encounter Care Teams Players Assistant Relationship Specialty Start Date End Date Emilee Cody MD [address] [place] [address] PCP - General 03/15/16 09/29/18 documented as of this encounter
--- OUTSIDE RECORDS SUMMARY | 2024-08-06 00:59 | XMS_ITS | Encounter Summary ---
Author Organization [facility] Address [address] [place] [address] Care Team Providers Care Surface Grinding Machine Hand Name Role Phone Yossi Torres MD Primary Care Provider +1 [phone] Reason for Visit * Reason Comments Hypothyroidism F/U Encounter Details Date Type Department Care Team (Latest Contact Info) Description 08/04/2014 14:20 EST Office Visit [facility] Endocrinology - [facility] [address] [place] [address] Wilder Zaidi, DO [address] [facility] [address] [place] [address] Panhypopituitarism (HCC-CMS) (Primary Dx); Primary [...] Mood seems stable. LABORATORY DATA: Obtained at [facility] on 08/01/2013 showed a sodium of [...] [facility] - [facility] [address] [place] [address] Wilder Zaidi, DO [address] [facility] [address] [place] [address] documented as of this encounter Results * (ABNORMAL) ELECTROLYTES (08/04/2014 15:24 EST) Sodium 125(L) 136 - 145 mEq/L 08/04/2014 20:16 EST [facility] Potassium 4.0 3.5 - 5.0 mEq/L 08/04/2014 20:16 EST [facility] Chloride 89(L) 96 - 110 mEq/L 08/04/2014 20:16 EST [facility] CO2 28 24 - 32 mEq/L 08/04/2014 20:16 EST [facility] Blood specimen (specimen) BLOOD SPECIMEN / Unknown 08/04/2014 15:24 EST 08/04/2014 19:15 EST Wilder Zaidi DO CHEMISTRY & BLOOD GAS ORDERABLES Final Result [facility] [address] [place] [address] * T3 FREE (08/04/2014 15:24 EST) T3, Free 2.5 2.3 - 4.2 pg/mL 08/04/2014 21:27 EST [facility] Blood specimen (specimen) BLOOD SPECIMEN / Unknown 08/04/2014 15:24 EST 08/04/2014 19:15 EST Wilder Zaidi DO CHEMISTRY & BLOOD GAS ORDERABLES Final Result Performing Organization Address City/[facility]/ZIP Co de Phone Number [facility] [address] [place] [address] * T4 FREE (08/04/2014 15:24 EST) Free T4 1.4 0.8 - 1.8 ng/dl 08/04/2014 21:27 EST [facility] Blood specimen (specimen) BLOOD SPECIMEN / Unknown 08/04/2014 15:24 EST 08/04/2014 19:15 EST us Wilder Zaidi DO CHEMISTRY & BLOOD GAS ORDERABLES Final Result [facility] [address] [place] [address] documented in this encounter Visit Diagnoses Diagnosis Panhypopituitarism (HCC-CMS)- Primary Panhypopituitarism Primary central diabetes insipidus (HCC-CMS) Diabetes insipidus Gonadotropin deficiency ([facility]-CMS) Other anterior pituitary disorders Secondary hypothyroidism Other specified acquired hypothyroidism documented in this encounter Historical Medications * This list may reflect changes made after this encounter. testosterone (ANDROGEL) 1 % (50 mg/5 gram) gel packet Apply 5 g topically daily. 4 HYDROCODONE/ACET AMINOPHEN (VICODIN ORAL) Take 5 mg by mouth. 4 added in this encounter Care Teams Surface Grinding Machine Hand Relationship Specialty Start Date End Date Yossi Torres MD [address] [place] [address] [address] [place] [phone] PCP - General 04/17/11 03/14/16 documented as of this encounter
--- OUTSIDE RECORDS SUMMARY | 2024-08-06 00:59 | XMS_ITS | Encounter Summary ---
Author Organization [facility] Address [address] [place] [address] Care Team Providers Care Communication Center Coordinator Name Role Phone Yossi Torres MD Primary Care Provider [phone]- [phone] Reason for Visit * Reason Comments Labs Only Encounter Details Date Type Department Care Team (Latest Contact Info) Description 02/01/2014 10:[address] [facility] Endocrinology - [facility] [address] [place], [place] [phone] Wilder Zaidi, [address] [facility] [address] [place] [address] Phlebotomy, [facility] Central hypothyroidism Social History Tobacco Use [...] Visit [facility] Endocrinology - [facility] [address] [place] [address] Wilder Zaidi, DO [address] [facility] [address] [place] [address] documented as of this encounter [...] ORDERABLES Final Result [facility] [address] [place] [address] documented in this encounter Visit Diagnoses Diagnosis Central hypothyroidism Unspecified hypothyroidism documented in this encounter Care Teams Communication Center Coordinator Relationship Specialty Start Date End Date Yossi Torres MD [address] [place] [address] [address] [place] [phone] PCP - General 04/17/11 03/14/16 documented as of this encounter
--- OUTSIDE RECORDS SUMMARY | 2024-08-06 00:59 | XMS_ITS | Encounter Summary ---
Author Organization [facility] Address [address] [place] [address] Care Team Providers Care Carbonator Name Role Phone Yossi Torres MD Primary Care Provider [phone] Reason for Visit * Reason Onset Date Comments Discuss Test Results 02/03/2015 Sodium Leve ls Encounter Details Date Type Department Care Team (Late st Contact Info) Description 02/03/2015 Telephone [facility] Endocrinology - [facility] [address] [place] [address] Wilder Zaidi DO [address] [facility] [address] [place] [address] Discuss Test Results (Sodium Levels) [...] Belgica Chavez - 02/03/2015 0929 EDT Called [facility] drawn 01/31/15 Na level: 141 Unchanged from previous 2 wks ago. Continue current fluid restricton of 80 oz and retest again in 2 wks. * Telephone Encounter - Yany Lauren - 02/03/2015 0901 EDT Reason for Call: Discuss Test Results Summary/Symptoms: Jonatan at [facility] calling to receive [facility] S[facility] levels he had done at [facility]. Please call back to discuss. Jonatan states as soon as possible because he will notbe available all day. Lauren Slade 02/03/2015 9:01 documented in this encounter Plan of Treatment Upcoming Encounters Date Type Department Care Team (Late st Contact Info) Description 10/01/2024 13:40 EDT Office Visit [facility] Endocrinology - [facility] [address] [place] [address] Wilder Zaidi, [address] [facility] [address] [place] [address] documented as of this encounter Visit Diagnoses Not on filedocumented in this encounter Care Teams Carbonator Relationship Specialty Start Date End Date Yossi Torres MD [address] [place] [address] [address] [place] [phone] PCP - General 04/17/11 03/14/16 documented as of this encounter
--- OUTSIDE RECORDS SUMMARY | 2024-08-06 00:59 | XMS_ITS | Encounter Summary ---
Author Organization [facility] Address [address] [place] [address] Care Team Providers Care Produce Laborer Name Role Phone Emilee Cody MD Primary Care Provider + Reason for Visit * Reason Onset Date Comments Discuss Test Results 06/13/2016 Encounter Details Date Type Department Care Team (Late st Contact Info) Description 06/13/2016 Telephone [facility] Endocrinology - [facility] [address] [place] [address] Wilder Zaidi, [address] [facility] [address] [place] [address] Discuss Test Results Social History [...] Telephone Encounter - Tracy Cowan - 06/13/2016 4388 EST Lali from [facility] results drawn a few weeks ago [facility] documented in this encounter Plan of Treatment Upcoming Encounters Date Type Department Care Team (Late st Contact Info) Description 10/01/2024 13:40 EDT Office Visit [facility] Endocrinology - [facility] [address] [place], [place] [phone] Wilder Zaiid, [address] [facility] [address] [place] [address] documented as of this encounter Visit Diagnoses Not on filedocumented in this encounter Care Teams Produce Laborer Relationship Specialty Start Date End Date Emilee Cody MD [address] [place] [address] PCP - General 03/15/16 09/29/18 documented as of this encounter
--- OUTSIDE RECORDS SUMMARY | 2024-08-06 00:59 | XMS_ITS | Encounter Summary ---
Author Organization [facility] Address [address] [place] [address] Care Team Providers Care Refrigeration Unit Repairer Name Role Phone Yossi Torres MD Primary Care Provider Emilee Cody MD Primary Care Provider + Ren Vaz MD Primary Care Provider [phone] Reason for Visit * Reason Onset Date Comments Follow-up 09/07/2013 Update 09/07/2013 Encounter Details Date Type Department Care Team (Late st Contact Info) Description 09/07/2013 Telephone [facility] Endocrinology - [facility] [address] [place] [address] Wilder Zaidi, [address] [facility] [address] [place] [address] Follow-up; Update Social History Tobacco [...] got a verbal result from lab at [facility] of 152. She is wondering if [...] [facility] Endocrinology - [facility] [address] [place] [address] Wilder Zaidi, [address] [facility] [address] [place] [address] documented as of this encounter Visit Diagnoses Not on filedocumented in this encounter Care Teams Refrigeration Unit Repairer Relationship Specialty Start Date End Date Yossi Torres MD [address] [place] [address] [phone] PCP - General 04/17/11 03/14/16 Emilee Cody MD [address] [place] [phone] PCP - General 03/15/16 09/29/18 Ren Vaz MD [address] [place] [address] [place] [address] PCP - General 09/30/18 documented as of this encounter
--- OUTSIDE RECORDS SUMMARY | 2024-08-06 00:59 | XMS_ITS | Encounter Summary ---
Author Organization [facility] Address [address] [place] [address] Care Team Providers Care Guest Specialist Name Role Phone Yossi Torres MD Primary Care Provider [phone] Reason for Visit * Reason Onset Date Comments Other 01/27/2014 Encounter Details Date Type Department Care Team (Late st Contact Info) Description 01/27/2014 Telephone [facility] [address] [place] [address] Wilder Zaidi, [address] [facility] [address] [place] [address] Other Social History Tobacco Use [...] Description 10/01/2024 13:40 EDT Office Visit [facility] Endocrinology [address] [address] Wilder Zaidi, DO [address] [facility] [address] [place] [address] documented as of this encounter Visit Diagnoses Not on filedocumented in this encounter Care Teams Guest Specialist Relationship Specialty Start Date End Date Yossi Torres MD [address] [place] [address] [facility] [address] [place] [address] PCP - General 04/17/11 03/14/16 documented as of this encounter
--- OUTSIDE RECORDS SUMMARY | 2024-08-06 00:59 | XMS_ITS | Encounter Summary ---
Author Organization [facility] Address [address] [place] [address] Care Team Providers Care Mixing Technician Name Role Phone Yossi Torres MD Primary Care Provider [phone] Emilee Cody MD Primary Care Provider + Reason for Visit * Reason Onset Date Comments Results 01/19/2015 Medication Management 01/19/2015 Encounter Details Date Type Department Care Team (Late st Contact Info) Description 01/19/2015 Telephone [facility] Endocrinology - [facility] [address] [place] [address] Wilder Zaidi, 62 [facility] [address] [place] [address] Results; Medication Management Social History [...] Results and Medication Management Summary/Symptoms: Please call longterm and speak to Jonatan or Lali. They have questions about Fluid restriction for Miguel Angel. Requesting call back today when a moment. Alicia Chi 01/19/2015 11:52 * Telephone Encounter - Wilder Zaidi DO - 01/19/2015 1133 EDT Please contact patient via phone. [facility] Advise patient's caretakers that his sodium wasnormal at 141. Please continue current dose of DDAVP and fluid restriction. Repeat sodium and 14 days documented in this encounter Plan of Treatment Upcoming Encounters Date Type Department Care Team (Late st Contact Info) Description 10/01/2024 13:40 EDT Office Visit [facility] Endocrinology - [facility] [address] [place], [place] [phone] Wilder Zaidi DO [address] [facility] [address] [place] [address] documented as of this encounter Visit Diagnoses Not on filedocumented in this encounter Care Teams Mixing Technician Relationship Specialty Start Date End Date Yossi Torres MD [address] [place] [address] [facility] [address] [place] [phone] PCP - General 04/17/11 03/14/16 Emilee Cody MD [address] [place] [address] PCP - General 03/15/16 09/29/18 documented as of this encounter
--- OUTSIDE RECORDS SUMMARY | 2024-08-06 00:59 | XMS_ITS | Encounter Summary ---
Author Organization [facility] Address [address] [place] [address] Care Team Providers Care Food Processing Plant Manager Name Role Phone Yossi Torres MD Primary Care Provider [phone] Reason for Visit * Reason Onset Date Comments Results 05/02/2015 Encounter Details Date Type Department Care Team (Late st Contact Info) Description 05/02/2015 Telephone [facility] Endocrinology - [facility] [address] [place] [address] Wilder Zaidi DO [address] [facility] [address] [place] [address] Results Social History Tobacco Use [...] Left detailed message for jason strickland at [facility]. She will call back if any questions. * Telephone Encounter - Wilder Zaidi DO - 05/02/2015 5255 EDT Please contact the facility where Miguel [...] Visit [facility] Endocrinology - [facility] [address] [place] [address] Wilder Zaidi DO 62 [facility] [address] [place] [address] documented as of this encounter Visit Diagnoses Not on filedocumented in this encounter Care Teams Food Processing Plant Manager Relationship Specialty Start Date End Date Yossi Torres MD [address] [place] [address] [address] [place] [phone] PCP - General 04/17/11 03/14/16 documented as of this encounter
--- OUTSIDE RECORDS SUMMARY | 2024-08-06 00:59 | XMS_ITS | Encounter Summary ---
Author Organization [facility] Address [address] [place] [address] Care Team Providers Care Metal Molder Name Role Phone Yossi Torres MD Primary Care Provider [phone] Reason for Visit * Reason Onset Date Comments Results 04/04/2015 Encounter Details Date Type Department Care Team (Late st Contact Info) Description 04/04/2015 Telephone [facility] Endocrinology - [facility] [address] [place] [address] Belgica Chavez CDE [address] [facility] [address] [place] [address] Results Social History Tobacco Use [...] 1710 EDT Discussed with Lali nurse at [facility]. Advised of plan. She verbalized understanding. * [...] Visit [facility] Endocrinology - [address] [id number] Wilder Zaidi DO [address] [facility] [address] [place] [address] documented as of this encounter Visit Diagnoses Not on filedocumented in this encounter Care Teams Metal Molder Relationship Specialty Start Date End Date Yossi Torres MD [address] [place] [address] [address] [place] [phone] PCP - General 04/17/11 03/14/16 documented as of this encounter
--- OUTSIDE RECORDS SUMMARY | 2024-08-06 00:59 | XMS_ITS | Encounter Summary ---
Author Organization [facility] Address [address] [place] [address] Care Team Providers Care Production Clerks Supervisor Name Role Phone Yossi Torres MD Primary Care Provider [phone] Reason for Visit * Reason Comments Other Encounter Details Date Type Department Care Team (Late st Contact Info) Description 08/25/2014 Refill [facility] Endocrinology - [facility] [address] [place], [place] [phone] Day Littlejohn MD PhD 62 [facility] [address] [place] [address] Other Social History Tobacco Use [...] EDT Office Visit [facility] Endocrinology [facility] [address] [place] [address] Wilder Zaidi, 62 [facility] [address] [place] [address] documented as of this encounter Visit Diagnoses Not on filedocumented in this encounter Discontinued Medications Medication Sig Discontinue Reason Start Date End Da te levothyroxine (SYNTHROID) 150 mcg tablet Take 1 Tab by mouth daily. Reorder 09/01/2013 08/25/2014 documented as of this encounter Care Teams Production Clerks Supervisor Relationship Specialty Start Date End Date Yossi Torres MD [address] [place] [address] [address] [place] [phone] PCP - General 04/17/11 03/14/16 documented as of this encounter
--- OUTSIDE RECORDS SUMMARY | 2024-08-06 00:59 | XMS_ITS | Encounter Summary ---
Author Organization [facility] Address [address] [place] [address] Care Team Providers Care Header Machine Operator Name Role Phone Yossi Torres MD Primary Care Provider [phone] Reason for Visit * Reason Onset Date Comments Follow-up 09/01/2013 Encounter Details Date Type Department Care Team (Late st Contact Info) Description 09/01/2013 Telephone [facility] Endocrinology - [facility] [address] [place] [address] Wilder Zaidi, 62 [facility] [address] [place] [address] Follow-up Social History Tobacco Use [...] Modules accepted: Orders * Telephone Encounter - Llii Driscoll RN - 09/01/2013 1306 EST I [...] out of range as well. I called [facility] to have the results faxed [...] since he is onvacation asking for the flight surgeon provider, I relayed to Bettina that the [...] EDT Office Visit [facility] Endocrinology - [facility] [address] [place] [address] Wilder Zaidi, DO [address] [facility] [address] [place] [address] documented as of this encounter Visit Diagnoses Not on filedocumented in this encounter Discontinued Medications Medication Sig Discontinue Reason Start Date End Da te levothyroxine (SYNTHROID) 175 mcg tablet Take 1 Tab by mouth daily. Reorder 07/29/2013 09/01/2013 documented as of this encounter Care Teams Header Machine Operator Relationship Specialty Start Date End Date Yossi Torres MD [address] [place] [address] [address] [place] [phone] PCP - General 04/17/11 03/14/16 documented as of this encounter
--- OUTSIDE RECORDS SUMMARY | 2024-08-06 00:59 | XMS_ITS | Encounter Summary ---
Author Organization [facility] Address [address] [place] [address] Care Team Providers Care Mechanical Engineering Draftsperson Name Role Phone Yossi Torres MD Primary Care Provider [phone] Reason for Visit * Reason Onset Date Comments Discuss Test Results 05/18/2015 Encounter Details Date Type Department Care Team (Late st Contact Info) Description 05/18/2015 Telephone [facility] Endocrinology - [facility] [address] [place] [address] Wilder Zaidi, 62 [facility] [address] [place] [address] Discuss Test Results Social History [...] - 05/18/2015 1544 EST Sodium 143 from [facility]. * Telephone Encounter - Tracy Nunez - 05/18/2015 3583 EST Reason for Call: Discuss Test Results Summary/Symptoms: Sodium results done Friday @ [facility] Tracy Magdalenobrad 05/18/2015 13:44 documented in this encounter Plan of Treatment Upcoming Encounters Date Type Department Care Team (Late st Contact Info) Description 10/01/2024 13:40 EDT Office Visit [facility] Endocrinology - [facility] [address] [place] [address] Wilder Zaidi, [address] [facility] [address] [place] [address] documented as of this encounter Visit Diagnoses Not on filedocumented in this encounter Care Teams Mechanical Engineering Draftsperson Relationship Specialty Start Date End Date Yossi Torres MD [address] [place] [address] [facility] 2 [place] [phone] PCP - General 04/17/11 03/14/16 documented as of this encounter
--- OUTSIDE RECORDS SUMMARY | 2024-08-06 00:59 | XMS_ITS | Encounter Summary ---
Author Organization [facility] Address [address] [place] [address] Care Team Providers Care Classification Officer Name Role Phone Yossi Torres MD Primary Care Provider [phone] Reason for Visit * Reason Onset Date Comments Discuss Test Results 10/19/2015 Lab work Encounter Details Date Type Department Care Team (Late st Contact Info) Description 10/19/2015 Telephone [facility] Endocrinology - [facility] [address] [place] [address] Wilder Zaidi DO 62 [facility] [address] [place] [address] Discuss Test Results (Lab work) [...] Encounter - Georgia Rice RN - 10/19/2015 1538 EDT Phone call to Krissy Informed her [...] - 10/19/2015 1141 EDT Phone call to [facility] [place] Faxing results from 10/17/15 Sodium 140 (136-145) * Telephone Encounter - Josefina Rivera - 10/19/2015 1041 EDT Reason for Call: Discuss Test Results Summary/Symptoms: Lali Denise from [facility] is wanting the lab results for this patient. Please call back. Spoke with Georgia and results were not in yet. Josefina Rivera 10/19/2015 10:41 documented in this encounter Plan of Treatment Upcoming Encounters Date Type Department Care Team (Late st Contact Info) Description 10/01/2024 13:40 EDT Office Visit [facility] Endocrinology - [facility] [address] [place] [address] Wilder Zaidi DO 62 [facility] [address] [place] [address] documented as of this encounter Visit Diagnoses Not on filedocumented in this encounter Care Teams Classification Officer Relationship Specialty Start Date End Date Yosis Torres MD [address] [place] [address] [address] [place] [phone] PCP - General 04/17/11 03/14/16 documented as of this encounter
--- OUTSIDE RECORDS SUMMARY | 2024-08-06 00:59 | XMS_ITS | Encounter Summary ---
Author Organization [facility] Address [address] [place] [address] Care Team Providers Care Industrial Sociologist Name Role Phone Yossi Torres MD Primary Care Provider +1- [phone] Reason for Visit * Reason Onset Date Comments Results 12/30/2014 Encounter Details Date Type Department Care Team (Late st Contact Info) Description 12/30/2014 Telephone [facility] Endocrinology - [facility] [address] [place] [address] Wilder Zaidi DO [address] [facility] [address] [place] [address] Results Social History Tobacco Use [...] Pt has sodium level testing todayt @ [facility] and caregiver is calling for results. Onset and Duration? na Urgent? Gladys Willingham 12/30/2014 14:15 documented in this encounter Plan of Treatment Upcoming Encounters Date Type Department Care Team (Late st Contact Info) Description 10/01/2024 13:40 EDT Office Visit [facility] Endocrinology - [facility] [address] [place] [address] Wilder Zaidi, [address] [facility] [address] [place] [address] documented as of this encounter Visit Diagnoses Not on filedocumented in this encounter Care Teams Industrial Sociologist Relationship Specialty Start Date End Date Yossi Torres MD [address] [place] [address] [address] [place] [phone] PCP - General 04/17/11 03/14/16 documented as of this encounter
--- OUTSIDE RECORDS SUMMARY | 2024-08-06 00:59 | XMS_ITS | Encounter Summary ---
Author Organization [facility] Address [address] [place] [address] Care Team Providers Care Apartment Community Assistant Manager Name Role Phone Emilee Cody MD Primary Care Provider + Reason for Visit * Reason Onset Date Comments Update 04/09/2016 standing medicat ion form Encounter Details Date Type Department Care Team (Late st Contact Info) Description 04/09/2016 Telephone [facility] - [facility] [address] [place] [address] Wilder Zaidi, [address] [facility] [address] [place] [address] Update (standing medication form) Social [...] Update (standing medication form) Summary/Symptoms: Lali from [facility] is calling to discuss a prescription that [...] Visit [facility] Endocr[facility]ology - [facility] [address] [place] [address] Wilder Zaidi, [address] [facility] [address] [place] [phone] documented as of this encounter Visit Diagnoses Not on filedocumented in this encounter Care Teams Apartment Community Assistant Manager Relationship Specialty Start Date End Date Emilee Cody MD [address] [place] [address] PCP - General 03/15/16 09/29/18 documented as of this encounter
--- OUTSIDE RECORDS SUMMARY | 2024-08-06 00:59 | XMS_ITS | Encounter Summary ---
Author Organization [facility] Address [address] [place] [address] Care Team Providers Care Model Maker Firearms Name Role Phone Yossi Torres MD Primary Care Provider +1 [phone] Emilee Cody MD Primary Care Provider + Reason for Visit * Reason Onset Date Comments Prior Auth, Medication 03/13/2016 levothyro xine Encounter Details Date Type Department Care Team (Late st Contact Info) Description 03/13/2016 Telephone [facility]ology - [facility] [address] [place] [address] Wilder Zaidi, [address] [facility] [address] [place] [address] Prior Auth, Medication (levothyroxine) Social [...] Durant - 03/13/2016 1311 EDT Miguel Angel's geriatric case manager called to advise that the [...] EDT Office Visit [facility] Endocrinology - [address] [address] Wilder Zaidi, [address] [facility] [address] [place] [address] documented as of this encounter Visit Diagnoses Not on filedocumented in this encounter Discontinued Medications Medication Sig Discontinue Reason Start Date End Da te levothyroxine (SYNTHROID) 150 mcg tablet TAKE ONE TABLET BY MOUTH EVERY DAY Reorder 05/04/2015 03/18/2016 documented as of this encounter Care Teams Model Maker Firearms Relationship Specialty Start Date End Date Yossi Torres MD [address] [place] [address] [address] [place] [phone] PCP - General 04/17/11 03/14/16 Emilee Cody MD [facility] [place] [place] [phone] PCP - General 03/15/16 09/29/18 documented as of this encounter
--- OUTSIDE RECORDS SUMMARY | 2024-08-06 00:59 | XMS_ITS | Encounter Summary ---
Author Organization [facility] Address [address] [place] [address] Care Team Providers Care Clip Coater Name Role Phone Yossi Torres MD Primary Care Provider +1 [phone] Reason for Visit * Reason Onset Date Comments Orders (Non Pre-visit) 11/08/2014 MEDICATIO NS Encounter Details Date Type Department Care Team (Late st Contact Info) Description 11/08/2014 Telephone [facility] Endocrinology - [facility] [address] [place] [address] Wilder Zaidi, [address] [facility] [address] [place] [address] Orders (Non Pre-visit) (MEDICATIONS) Social [...] gram (1.62 %) transdermal gel pumpIndications: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 Spoke to pharmacist. * Telephone Encounter - Tracy Nunez - 11/08/2014 1037 EDT Reason for Call: Orders (Non Pre-visit) Summary/Symptoms - Pt is new to his shelter, needing new orders of hydrocortisone and androgel [...] Office Visit [facility] Endocrinology - [address] [address] Wilder Zaidi, [address] [facility] [address] [place] [address] documented as of this encounter [...] documented as of this encounter Care Teams Clip Coater Relationship Specialty Start Date End Date Yossi Torres MD [address] [place] [address] [address] [place] [phone] PCP - General 04/17/11 03/14/16 documented as of this encounter
--- OUTSIDE RECORDS SUMMARY | 2024-08-06 00:59 | XMS_ITS | Encounter Summary ---
Author Organization [facility] Address [address] [place] [address] Care Team Providers Care Sales Correspondent Name Role Phone Yossi Torres MD Primary Care Provider +1 [phone] Emilee Cody MD Primary Care Provider + Reason for Visit * Reason Onset Date Comments Results 08/05/2014 Encounter Details Date Type Department Care Team (Late st Contact Info) Description 08/05/2014 Telephone [facility] Endocrinology - [facility] [address] [place] [address] Wilder Zaidi DO [address] [facility] [address] [place] [address] Results Social History Tobacco Use [...] Info) Description 10/01/2024 13:40 EDT Office Visit [facility] Endocrinology - [facility] [address] [place] [address] Wilder Zaidi DO [address] [facility] [address] [place] [phone] documented as of this encounter Visit Diagnoses Not on filedocumented in this encounter Care Teams Sales Correspondent Relationship Specialty Start Date End Date Yossi Torres MD [address] [place] [phone] PCP - General 04/17/11 03/14/16 Emilee Cody MD [address] [place] [address] PCP - General 03/15/16 09/29/18 documented as of this encounter
--- OUTSIDE RECORDS SUMMARY | 2024-08-06 00:59 | XMS_ITS | Encounter Summary ---
Author Organization [facility] Address [address] [place] [address] Care Team Providers Care Ground Support Equipment Mechanic Name Role Phone Emilee Cody MD Primary Care Provider + Reason for Visit * Reason Onset Date Comments Discuss Test Results 06/25/201606/21 @[facility] Discuss Test Results 06/25/2016 Sodium Results 07/04/2016 Encounter Details Date Type Department Care Team (Late st Contact Info) Description 06/25/2016 Telephone [facility] Endocrinology - [facility] [address] [place] [address] Wilder Zaidi DO [address] [facility] [address] [place] [address] Discuss Test Results (06/21 @[facility]); Discuss Test Results (Sodium); Results Social [...] Miscellaneous Notes * Telephone Encounter - Jennifer uA RN - 07/10/2016 6235 EST Spoke to Jessika and relayed Dr. Pa recommendation to recheck labs in 3 months./JOSE * Telephone Encounter - Wilder Zaidi DO - 07/10/2016 1431 EST No change. Sodium in normal range. Recheck in 3 moths or if there is change in behavior or clinicalstatus. * Telephone Encounter - Jennifer Au RN - 07/10/2016 1317 EST Called [facility] looking for latest sodium labs from 07/09. Sodium remains at 140. * Telephone Encounter - Jennifer Au RN - 07/08/2016 1009 EST Spoke with - at [facility], confirming that Miguel Angel is on fluid restrictions of 110 ounces daily. Willhave sodium drawn tomorrow at [facility]. /JOSE * Telephone Encounter - Wilder [...] Maxine Roy - 07/04/2016 0927 EST Lali @[facility] states his sodium level was drawn on 06/21 @[facility] and was at 140. Requesting Dr[address] Pa advice as to when to re-test. * Telephone Encounter - Patrica Mari - 07/03/2016 1501 EST Lali calling for Sodium test result. Please call. * Telephone Encounter - Maxine Roy - 06/25/2016 0900 EST Jose Manuel checking to see if the pt's lab results from 06/21 have been received from [facility]. documented in this encounter Plan of Treatment Upcoming Encounters Date Type Department Care Team (Late st Contact Info) Description 10/01/2024 13:40 EDT Office Visit [facility] Endocrinology - [facility] [address] [place], [place] [phone] Wilder Zaidi, DO [address] [facility] [address] [place] [address] documented as of this encounter Visit Diagnoses Not on filedocumented in this encounter Care Teams Ground Support Equipment Mechanic Relationship Specialty Start Date End Date Emilee Cody MD [address] [place] [address] PCP - General 03/15/16 09/29/18 documented as of this encounter
--- OUTSIDE RECORDS SUMMARY | 2024-08-06 00:59 | XMS_ITS | Encounter Summary ---
Author Organization [facility] Address [address] [place] [address] Care Team Providers Care Post Tensioning Ironworker Helper Name Role Phone Yossi Torres MD Primary Care Provider +1 [phone] Reason for Visit * Reason Comments Hypothyroidism Pituitary Abnormality Encounter Details Date Type Department Care Team (Latest Contact Info) Description 02/01/2014 10:40 EDT Office Visit [facility] Endocrinology - [facility] [address] [place] [phone] Wilder Zaidi, [address] [facility] [place] [facility] [address] [place] [address] Central hypothyroidism (Primary Dx) Social [...] Mood has been stable, according to the infectious disease technician. LABORATORY DATA: Obtained on at [facility] on 01/21/2014 showed a sodium normal [...] Office Visit [facility] Endocrinology - [place] [address] [place] [address] Wilder Zaidi DO [address] [facility] [place] [facility] [address] [place] [address] documented as of this encounter Results * T4 FREE (02/01/2014 10:50 EDT) Free T4 1.4 0.8 - 1.8 ng/dl [facility] Blood specimen (specimen) 02/01/2014 10:50 EDT 02/01/2014 15:54 EDT us Wilder Zaidi DO CHEMISTRY & BLOOD GAS ORDERABLES Final Result [facility] [address] [place] [address] documented in this encounter Visit Diagnoses Diagnosis Central hypothyroidism- Primary Unspecified hypothyroidism documented in this encounter Discontinued Medications Medication Sig Discontinue Reason Start Date End Da te testosterone (ANDROGEL) 1 %(50 mg/5 gram) gel Place 5 g onto the skin daily. Pt needs appt for further refills. 02/01/2013 02/03/2014 documented as of this encounter Care Teams Post Tensioning Ironworker Helper Relationship Specialty Start Date End Date Yossi Torres MD [address] [place] [address] [address] [place] [phone] PCP - General 04/17/11 03/14/16 documented as of this encounter
--- OUTSIDE RECORDS SUMMARY | 2024-08-06 00:59 | XMS_ITS | Encounter Summary ---
Author Organization [facility] Address [address] [place] [address] Care Team Providers Care Registrar Museum Name Role Phone Yossi Torres MD Primary Care Provider +1 [phone] Reason for Visit * Reason Onset Date Comments Results 10/13/2015 Encounter Details Date Type Department Care Team (Late st Contact Info) Description 10/13/2015 Telephone [facility] Endocrinology - [facility] [address] [place] [address] Belgica ChavezBRENNEN [address] [facility] [address] [place] [address] Results Social History Tobacco Use [...] Telephone Encounter - [place] Chavez - 10/13/2015 1201 EDT Spoke to lali about Bettina fluid [...] [facility] - [facility] [address] [place] [address] Wilder Zaidi, [address] [facility] [address] [place] [address] documented as of this encounter Visit Diagnoses Not on filedocumented in this encounter Care Teams Registrar Museum Relationship Specialty Start Date End Date Yossi Torres MD [address] [place] [address] [address] [place] [phone] PCP - General 04/17/11 03/14/16 documented as of this encounter
--- OUTSIDE RECORDS SUMMARY | 2024-08-06 00:59 | XMS_ITS | Encounter Summary ---
Author Organization [facility] Address [address] [place] [address] Care Team Providers Care Program Director/Morning Show Host Name Role Phone Yossi Torres MD Primary Care Provider +1- [phone] Reason for Visit * Reason Onset Date Comments Follow-up 03/31/2015 Encounter Details Date Type Department Care Team (Late st Contact Info) Description 03/31/2015 Telephone [facility] Endocrinology - [facility] [address] [place] [address] Wilder Zaidi, [address] [facility] [address] [place] [address] Follow-up Social History Tobacco Use [...] EDT Phone call to Lali (nurse at [facility]) Left message on her personal voice mail Per Dr. Zaidi please repeat Sodium level on Friday04/03/15. Sodium level was 146 ([id number]) * Telephone Encounter - Addie Burgess - 03/31/2015 1010 EDT Reason for Call: Follow-up Summary/Symptoms: Lali (RN) requesting a call back when nurses receive pt's sodium levels from [facility]. Addiemagali Burgess 03/31/2015 10:10 documented in this encounter Plan of Treatment Upcoming Encounters Date Type Department Care Team (Late st Contact Info) Description 10/01/2024 13:40 EDT Office Visit [facility] Endocrinology - [facility] [address] [place] [address] Wilder Zaidi, [address] [facility] [address] [place] [address] documented as of this encounter Visit Diagnoses Not on filedocumented in this encounter Care Teams Program Director/Morning Show Host Relationship Specialty Start Date End Date Yossi Torres MD [address] [place] [address] [address] [place] [phone] PCP - General 04/17/11 03/14/16 documented as of this encounter
--- OUTSIDE RECORDS SUMMARY | 2024-08-06 00:59 | XMS_ITS | Encounter Summary ---
Author Organization [facility] Address [address] [place] [address] Care Team Providers Care Cutter Operator Helper Name Role Phone Yossi Torres MD Primary Care Provider +1- [phone] Reason for Visit * Reason Onset Date Comments Medications Refill 08/29/2014 Encounter Details Date Type Department Care Team (Late st Contact Info) Description 08/29/2014 Refill [facility] Endocrinology - [facility] [address] [place], [place] [phone] Wilder Zaidi DO [address] [facility] [address] [place] [address] Medications Refill Social History Tobacco [...] gram (1.62 %) transdermal gel pumpIndications:Jose nhypopituitarism ([facility]) Apply 1 pump actuation topically daily Daily Max: 20.25 mg 75 g 3 08/29/2014 5 documented in this encounter Miscellaneous Notes * Telephone Encounter - Chavez, [place] - 09/02/2014 0950 EST Androgel refill phoned in to pharmacy [facility] in [place]. Androgel 1.62%, apply 1 pump daily #75gm [...] Office Visit [facility] Endocrinology - [facility] [address] [place], [place] [phone] Wilder Zaidi, [address] 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 Reorder 02/03/2014 08/29/2014 documented as of this encounter Care Teams Cutter Operator Helper Relationship Specialty Start Date End Date Yossi Torres MD [address] [place] [address] [address] [place] [phone] PCP - General 04/17/11 03/14/16 documented as of this encounter
--- OUTSIDE RECORDS SUMMARY | 2024-08-06 00:59 | XMS_ITS | Encounter Summary ---
Author Organization [facility] Address [address] [place] [address] Care Team Providers Care Auto Transmission Technician Name Role Phone Emilee Cody MD Primary Care Provider + Reason for Visit * Reason Onset Date Comments Medication Problem 07/12/2016 needs overrid e Encounter Details Date Type Department Care Team (Late st Contact Info) Description 07/12/2016 Telephone [facility] Endocrinology - [facility] [address] [place] [address] Wilder Zaidi, [address] [facility] [address] [place] [address] Medication Problem (needs override) Social [...] [facility] End[facility]ology - [address] [address] Wilder Zaidi, [address] [facility] [address] [place] [address] documented as of this encounter Visit Diagnoses Not on filedocumented in this encounter Discontinued Medications Medication Sig Discontinue Reason Start Date End Da te levothyroxine (SYNTHROID) 150 mcg tablet TAKE ONE TABLET BY MOUTH EVERY DAY/ Blister pack Reorder 06/14/2016 07/12/2016 documented as of this encounter Care Teams Auto Transmission Technician Relationship Specialty Start Date End Date Emilee Cody MD [address] [place] [address] PCP - General 03/15/16 09/29/18 documented as of this encounter
--- OUTSIDE RECORDS SUMMARY | 2024-08-06 00:59 | XMS_ITS | Encounter Summary ---
Author Organization [facility] Address [address] [place] [address] Care Team Providers Care Leadite Worker Name Role Phone Yossi Torres MD Primary Care Provider +1- [phone] Reason for Visit * Reason Onset Date Comments Other 09/06/2013 high sodium Encounter Details Date Type Department Care Team (Late st Contact Info) Description 09/06/2013 Telephone [facility] Endocrinology - [facility] [address] [place] [address] Wilder Zaidi, [address] [facility] [address] [place] [address] Other (high sodium ) Social [...] Telephone Encounter - Ramon Lucero - 09/06/2013 9045 EST I spoke with Miguel Angel's sister [...] [facility] Endocrinology - [facility] [address] [place] [address] Wilder Zaidi, [address] [facility] [address] [place] [address] documented as of this encounter Visit Diagnoses Not on filedocumented in this encounter Care Teams Leadite Worker Relationship Specialty Start Date End Date Yossi Torres MD [address] [place] [address] [address] [place] [phone] PCP - General 04/17/11 03/14/16 documented as of this encounter
--- OUTSIDE RECORDS SUMMARY | 2024-08-06 00:59 | XMS_ITS | Encounter Summary ---
Author Organization [facility] Address [address] [place] [address] Care Team Providers Care Aco Coordinator Name Role Phone Yossi Torres MD Primary Care Provider +1 [phone] Reason for Visit * Reason Onset Date Comments Update 04/17/2015 Encounter Details Date Type Department Care Team (Late st Contact Info) Description 04/17/2015 Telephone [facility] Endocrinology - [facility] [address] [place] [address] Wilder Zaidi, [address] [facility] [address] [place] [address] Update Social History Tobacco Use [...] Reason for Call: Update Summary/Symptoms: Lali from care home looking for pt's sodium levels. Addie Burgess 04/17/2015 11:20 documented in this encounter Plan of Treatment Upcoming Encounters Date Type Department Care Team (Late st Contact Info) Description 10/01/2024 13:40 EDT Office Visit [facility] Endocrinology - [facility] [address] [place] [address] Wilder Zaidi, DO [address] [facility] [address] [place] [address] documented as of this encounter Visit Diagnoses Not on filedocumented in this encounter Care Teams Aco Coordinator Relationship Specialty Start Date End Date Yossi Torres MD [address] [place] [address] [address] [place] [phone] PCP - General 04/17/11 03/14/16 documented as of this encounter
--- OUTSIDE RECORDS SUMMARY | 2024-08-06 00:59 | XMS_ITS | Encounter Summary ---
Author Organization [facility] Address [address] [place] [address] Care Team Providers Care Social Work Instructor Name Role Phone Yossi Torres MD Primary Care Provider +1 [phone] Emilee Cody MD Primary Care Provider + Reason for Visit * Reason Onset Date Comments Returning Call 02/02/2014 to [place] Returning Call 02/02/2014 Encounter Details Date Type Department Care Team (Late st Contact Info) Description 02/01/2014 Telephone [facility] Endocrinology - [facility] [address] [place] [address] Wilder Zaidi, [address] [facility] [address] [place] [address] Returning Call (to [place]); Returning [...] Telephone Encounter - Ludmila Harris - 02/02/2014 6536 EDT Bettina is returning [place]'s call. * [...] [facility] - [address] [address] Wilder Zaidi DO [address] [facility] [address] [place] [address] documented as of this encounter Visit Diagnoses Not on filedocumented in this encounter Care Teams Social Work Instructor Relationship Specialty Start Date End Date Yossi Torres MD [address] [place] [address] [address] [place] [phone] PCP - General 04/17/11 03/14/16 Emilee Cody MD [address] [place] [address] PCP - General 03/15/16 09/29/18 documented as of this encounter
--- OUTSIDE RECORDS SUMMARY | 2024-08-06 00:59 | XMS_ITS | Encounter Summary ---
Author Organization [facility] Address [address] [place] [address] Care Team Providers Care Bench Examiner Name Role Phone Yossi Torres MD Primary Care Provider [phone] Reason for Visit * Reason Onset Date Comments Medications Refill 03/14/2015 Encounter Details Date Type Department Care Team (Late st Contact Info) Description 03/14/2015 Refill [facility] Endocrinology - [facility] [address] [place] [address] Wilder Zaidi, 62 [facility] [address] [place] [address] Medications Refill Social History Tobacco [...] gram (1.62 %) transdermal gel pumpIndications:Jose nhypopituitarism ([facility]) Apply 3 pump actuations topically daily for 90 days Daily Max: 60.75 mg 337.5 g 0 03/15/2015 4 documented in this encounter Miscellaneous Notes * Telephone Encounter - Georgia Rice RN - 03/15/2015 1413 EDT Phone call to [facility] pharmacist I called in the Androgel, but it needs a PA, they said they faxed it 2 days ago.? I had them refax,and will give to front staff. * Telephone Encounter - Addie Burgess - 03/14/2015 1313 EDT Medication(s) Requested: [facility] Last Refill Date: 11/08/14 Last Visit Date: 08/04/14 Next Visit Date: 10/23/2015 Is patient out of medication? yes Addie Burgess 03/14/2015 13:13 documented in this encounter Plan of Treatment Upcoming Encounters Date Type Department Care Team (Late st Contact Info) Description 10/01/2024 13:40 EDT Office Visit [facility] Endocrinology - [address] [address] Wilder Zaidi, DO [address] [facility] [address] [place] [address] documented as of this encounter [...] documented as of this encounter Care Teams Bench Examiner Relationship Specialty Start Date End Date Yossi Torres MD [address] [place] [address] [address] [place] [phone] PCP - General 04/17/11 03/14/16 documented as of this encounter
--- OUTSIDE RECORDS SUMMARY | 2024-08-06 01:00 | XMS_ITS | Encounter Summary ---
Author Organization [facility] Address [address] [place] [address] Care Team Providers Care Founder And Ceo Name Role Phone Akil Serrano MD Primary Care Provider [phone] Encounter Details Date Type Department Care Team (Late st Contact Info) Description 02/24/2011 22:08 EDT - 02/25/2011 18:38 EDT Hospital Encounter [facility] Unit [address] [place] [address] Jason Olea MD [address] [facility], [address] [place] [address] Anatoliy Perez MD [address] [place] [phone] Primary central diabetes insipidus (CMS-HCC) (HCC-CMS) [...] past HH use. They do have a shortage worker who assist's Miguel Angel when he [...] Notes * Elsi Guillen MD - 02/24/2011 7896 EDT Neurosurgery Chief Complaint/ History of Present [...] spontaneously and on command. UE strength, 5/5, grease renderer bilaterally Downward toes No clonus Assesment/ Miguel [...] documented in this encounter Procedure Notes * Director Index, Scan - 02/24/2011 0000 EDTAssociated Order(s): ECG REPORT - SCANNED documented in this encounter OR Notes * Anesthesia Procedure Notes - Director Index, Scan - 02/24/2011 0000 EDT * Anesthesia Procedure Notes - Director Index, Scan - 02/24/2011 0000 EDT documented in [...] No High Blood Pressure: No History of [place]: No Cardiac Functional Limitations:: <4 METS Angina/Palpitations: [...] patient checks Active Multi-Disciplinary problems: FALL RISK [796757] (02/25/11) Data: patient lying with eyes closed [...] RN 02/25/2011 3:01 * Scanned Note-Null - Director Index, Scan - 02/24/2011 0000 EDT * Scanned Note-Null - Director Index, Scan - 02/24/2011 0000 EDT * Scanned Note-Null - Director Index, Scan - 02/24/2011 0000 EDT documented in this encounter Plan of Treatment Upcoming Encounters Date Type Department Care Team (Late st Contact Info) Description 10/01/2024 13:40 EDT Office Visit [facility] Endocrinology - [address] [address] Wilder Zaidi, DO [address] [place] [address] [address] [place] [address] documented as of this encounter Procedures Procedure Name Priority Date/Time Associated Diagnosis Comments ECG REPORT - SCANNED 02/28/2011 11:47 EDT documented in this encounter Results * ECG REPORT - SCANNED (02/28/2011 11:47 EDT) 02/28/2011 11:4 7 EDT Narrative Procedure Note Director Index, Scan - 02/24/2011 0:00 EDT us Scan Director Index PROCEDURE/MINOR SURGICAL HERMES HANNON Final Result documented [...] 02/25/2011 documented in this encounter Care Teams Founder And Ceo Relationship Specialty Start Date End Date Akil Serrano MD [address] [facility] [place] [address] PCP - General 02/21/10 04/16/11 documented as of this encounter
--- OUTSIDE RECORDS SUMMARY | 2024-08-06 01:00 | XMS_ITS | Encounter Summary ---
Author Organization [facility] Address [address] [place] [address] Care Team Providers Care Plodding Operator Name Role Phone Yossi Torres MD Primary Care Provider [phone] Reason for Visit * Reason Comments Other Encounter Details Date Type Department Care Team (Late st Contact Info) Description 04/16/2012 Refill [facility] Endocrinology [facility] [address] [place], [place] [phone] Wilder Zaidi, 62 [facility] [address] [place] [address] Other Social History Tobacco Use [...] Office Visit [facility] Endocrinology [facility] [address] [place], [place] [phone] Wilder Zaidi, DO 62 [facility] [address] [place] [address] documented as of this encounter Visit Diagnoses Not on filedocumented in this encounter Discontinued Medications Medication Sig Discontinue Reason Start Date End Da te desmopressin (DDAVP) 0.1 mg tablet Take one tab in the morning and 1/2 tab at bedtime Reorder 05/03/2011 04/16/2012 documented as of this encounter Care Teams Plodding Operator Relationship Specialty Start Date End Date Yossi Torres MD [address] [place] [address] DR BU[address]O [address] [place] [phone] PCP - General 04/17/11 03/14/16 documented as of this encounter
--- OUTSIDE RECORDS SUMMARY | 2024-08-06 01:00 | XMS_ITS | Encounter Summary ---
Author Organization [facility] Address [address] [place] [address] Care Team Providers Care Roller Turner Name Role Phone Yossi Torres MD Primary Care Provider [phone] Reason for Visit * Reason Comments Other Encounter Details Date Type Department Care Team (Late st Contact Info) Description 02/02/2013 Refill [facility] Endocrinology - [facility] [address] [place], [place] [id number] Wilder Zaidi, 62 [facility] [address] [place] [address] Other Social History Tobacco Use [...] [facility] Endocrinology - [facility] [address] [place] [address] Wilder Zaidi, DO 62 [facility] [address] [place] [address] documented as of this encounter Visit Diagnoses Not on filedocumented in this encounter Discontinued Medications Medication Sig Discontinue Reason Start Date End Da te desmopressin (DDAVP) 0.1 mg tablet TAKE ONE TABLET BY MOUTH EVERY MORNING AND ONE HALF TABLET AT BEDTIME Reorder 01/12/2013 02/02/2013 documented as of this encounter Care Teams Roller Turner Relationship Specialty Start Date End Date Yossi Torres MD [address] [place] [address] [address] [place] [address] PCP - General 04/17/11 03/14/16 documented as of this encounter
--- OUTSIDE RECORDS SUMMARY | 2024-08-06 01:00 | XMS_ITS | Encounter Summary ---
Author Organization [facility] Address [address] [place] [address] Care Team Providers Care Rug Measurer Name Role Phone Akil Serrano MD Primary Care Provider [phone] Reason for Visit * Reason Onset Date Comments Results 07/17/2010 Encounter Details Date Type Department Care Team (Late st Contact Info) Description 07/17/[address] [facility] Endocrinology - [facility] [address] [place] [address] Wilder Zaidi DO [address] [facility] [address] [place] [address] Results Social History Tobacco Use [...] Encounter - Wilder Zaidi DO - 07/17/2010 2439 EST Recent blood work from at [facility] showed sodium normal at 139. Recheck [...] [facility] - [facility] [address] [place] [address] Wilder Zaidi DO [address] [facility] [address] [place] [address] documented as of this encounter Visit Diagnoses Not on filedocumented in this encounter Care Teams Rug Measurer Relationship Specialty Start Date End Date Akil Serrano MD [address] [facility] [place] [address] PCP - General 02/21/10 04/16/11 documented as of this encounter
--- OUTSIDE RECORDS SUMMARY | 2024-08-06 01:00 | XMS_ITS | Encounter Summary ---
Author Organization [facility] Address [address] [place] [address] Care Team Providers Care Extruding Department Supervisor Name Role Phone Yossi Torres MD Primary Care Provider [phone] Reason for Visit * Reason Onset Date Comments Labs Only 09/13/2012 Encounter Details Date Type Department Care Team (Late st Contact Info) Description 09/13/2012 Telephone [facility] Endocrinology - [address] [address] Ramon Lucero MD [address] [place] [address], [address] [address] Labs Only Social History Tobacco [...] 60 oz fluid restriction. Investigate with new registered nurse hh case manager regarding inadvertent free water intake. [...] Visit [facility] Endocrinology - [facility] [address] [place] [address] Wilder Zaidi, 62 [facility] [address] [place] [phone] documented as of this encounter Visit Diagnoses Not on filedocumented in this encounter Care Teams Extruding Department Supervisor Relationship Specialty Start Date End Date Yossi Torres MD [address] [place] [address] [address] [place] [phone] PCP - General 04/17/11 03/14/16 documented as of this encounter
--- OUTSIDE RECORDS SUMMARY | 2024-08-06 01:00 | XMS_ITS | Encounter Summary ---
Author Organization [facility] Address [address] [place] [address] Care Team Providers Care Internet Marketing Director Name Role Phone Yossi Torres MD Primary Care Provider [phone] Reason for Visit * Reason Comments Other Encounter Details Date Type Department Care Team (Late st Contact Info) Description 06/28/2012 Refill [facility] Endocrinology - [facility] [address] [place] [address] Wilder Zaidi, 62 [facility] [address] [place] [address] Other Social History Tobacco Use [...] Telephone Encounter - Karen Tellez - 07/09/2012 7003 EST [facility] documented in this encounter Plan of Treatment Upcoming Encounters Date Type Department Care Team (Late st Contact Info) Description 10/01/2024 13:40 EDT Office Visit [facility] Endocrinology - [facility] [address] [place] [address] Wilder Zaidi, DO [address] [facility] [address] [place] [address] documented as of this encounter Visit Diagnoses Not on filedocumented in this encounter Discontinued Medications Medication Sig Discontinue Reason Start Date End Da te ANDROGEL 1 %(50 mg/5 gram) gel APPLY 5GM (1 PACKET) ONCE DAILY TO SKIN Reorder 12/25/2011 06/28/2012 documented as of this encounter Care Teams Internet Marketing Director Relationship Specialty Start Date End Date Yossi Torres MD [address] [place] [address] [address] [place] [phone] PCP - General 04/17/11 03/14/16 documented as of this encounter
--- OUTSIDE RECORDS SUMMARY | 2024-08-06 01:00 | XMS_ITS | Encounter Summary ---
Author Organization [facility] Address [address] [place] [address] Care Team Providers Care Replanter Name Role Phone Yossi Torres MD Primary Care Provider [phone] Reason for Visit * Reason Onset Date Comments Results 07/23/2011 Encounter Details Date Type Department Care Team (Late st Contact Info) Description 07/23/2011 Telephone [facility] Endocrinology - [facility] [address] [place] [address] Wilder Zaidi DO 62 [facility] [address] [place] [address] Results Social History Tobacco Use [...] Encounter - Wilder Zaidi DO - 07/23/2011 0823 EST Left message with Bettina (patient's sister) regarding most recent sodium level that was normal at 137. Continue current treatment. documented in this encounter Plan of Treatment Upcoming Encounters Date Type Department Care Team (Late st Contact Info) Description 10/01/2024 13:40 EDT Office Visit [facility] Endocrinology - [place] [address] [place] [address] Wilder Zaidi, [address] [facility] [address] [place] [address] documented as of this encounter Visit Diagnoses Not on filedocumented in this encounter Care Teams Replanter Relationship Specialty Start Date End Date Yossi Torres MD [address] [place] [address] [address] [place] [phone] PCP - General 04/17/11 03/14/16 documented as of this encounter
--- OUTSIDE RECORDS SUMMARY | 2024-08-06 01:00 | XMS_ITS | Encounter Summary ---
Author Organization [facility] Address [address] [place] [address] Care Team Providers Care Medical Anthropology Director Name Role Phone Akil Serrano MD Primary Care Provider [phone] Yossi Torres MD Primary Care Provider [phone] Emilee Cody MD Primary Care Provider + Ren Vaz MD Primary Care Provider [phone] Reason for Visit * Reason Comments Other Encounter Details Date Type Department Care Team (Late st Contact Info) Description 03/18/2011 Refill [facility] Endocrinology - [facility] [address] [place] [address] Wilder Zaidi 62 [facility] [address] [place] [address] Other Social History Tobacco Use [...] [facility] Endocrinology - [facility] [address] [place] [address] Wilder Zaidi, 62 [facility] [address] [place] [address] documented as of this encounter Visit Diagnoses Not on filedocumented in this encounter Discontinued Medications Medication Sig Discontinue Reason Start Date End Da te desmopressin (DDAVP) 0.1 mg tabletIndications:Primary central diabetes insipidus (HCC-CMS) Take by mouth. Take one-half tab by mouth twice a day. 06/19/2010 03/19/2011 documented as of this encounter Care Teams Medical Anthropology Director Relationship Specialty Start Date End Date Akil Serrano MD [address] [facility] [place], [place] [address] PCP - General 02/21/10 04/16/11 Yossi Torres MD [address] [place] [address] [address] [place] [phone] PCP - General 04/17/11 03/14/16 Emilee Cody MD [address] [place] [phone] PCP - General 03/15/16 09/29/18 Ren Vaz MD [facility] [place] [address] PCP - General 09/30/18 documented as of this encounter
--- OUTSIDE RECORDS SUMMARY | 2024-08-06 01:00 | XMS_ITS | Encounter Summary ---
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[facility]); 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[facility]) ([facility] 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 [address] [place] [address] documented as of this encounter [...] LAB HCT 45.4 39.5 - 50.2 % [facility] MCV 80(L) 81 - 95 fl [facility] MCH 27.2(L) 27.6 - 33.0 pg [facility] MCHC 33.9 32.8 - 36.4 gm/dl [facility] PLT 148 141 - 320 K/cmm [facility] RDW-CV 14.5(H) 11.8 - 14.1 % [facility] Blood specimen (specimen) 07/26/2013 12:17 EST 07/26/2013 15:09 EST Wilder Zaidi DO HEMATOLOGY & PF4 ORDER LYNDSEY Final Result Performing Organization Address [facility]/ZIP Co de Phone Number [facility] [address] [place] [address] * (ABNORMAL) T4 FREE (07/26/2013 12:17 EST) Free T4 2.3(H) 0.8 - 1.8 ng/dL [facility] Blood specimen (specimen) 07/26/2013 12:17 EST 07/26/2013 15:09 EST Wilder Zaidi DO CHEMISTRY & BLOOD GAS ORDERABLES Final Result Performing Organization Address [facility] de Phone Number [facility] [address] [place] [address] * (ABNORMAL) ELECTROLYTES (07/26/2013 12:17 EST) Sodium 137 136 - 145 mEq/L [facility] Potassium 4.3 3.5 - 5.0 mEq/L [facility] Chloride 94(L) 96 - 110 mEq/L [facility] CO2 32 24 - 32 mEq/L [facility] Blood specimen (specimen) 07/26/2013 12:17 EST 07/26/2013 15:09 EST us Wilder Zaidi DO CHEMISTRY & BLOOD GAS ORDERABLES Final Result [facility] [address] [place] [address] documented in this encounter Visit Diagnoses Diagnosis 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
--- OUTSIDE RECORDS SUMMARY | 2024-08-06 01:00 | XMS_ITS | Encounter Summary ---
Author Organization [facility] Address [address] [place] [address] Care Team Providers Care Boil Off Machine Operator Cloth Name Role Phone Yossi Torres MD Primary Care Provider [phone] Reason for Visit * Reason Onset Date Comments Results 09/18/2011 Encounter Details Date Type Department Care Team (Late st Contact Info) Description 09/18/2011 Telephone [facility] Endocrinology - [facility] [address] [place] [address] Wilder Zaidi, 62 [facility] [address] [place] [address] Results Social History Tobacco Use [...] [facility] Endocr[facility]ology - [address] [phone] Wilder Zaidi DO 62 [facility] [address] [place] [phone] documented as of this encounter Visit Diagnoses Not on filedocumented in this encounter Care Teams Boil Off Machine Operator Cloth Relationship Specialty Start Date End Date Yossi Torres MD [address] [place] [address] [address] [place] [phone] PCP - General 04/17/11 03/14/16 documented as of this encounter
--- OUTSIDE RECORDS SUMMARY | 2024-08-06 01:00 | XMS_ITS | Encounter Summary ---
Author Organization [facility] Address [address] [place] [address] Care Team Providers Care Design Specialist Name Role Phone Akil Serrano MD Primary Care Provider Encounter Details Date Type Department Care Team (Late st Contact Info) Description 12/13/2010 Results Only Imaging [facility] [phone] Yossi Torres MD [address] [place] [address] 2 [place] [address] Social History Tobacco Use Types [...] Description 10/01/2024 13:40 EDT Office Visit [facility] Endocrinology - [facility] [address] [place] [address] Wilder Zaidi, 62 [facility] [address] [place] [address] documented as of this encounter Visit Diagnoses Not on filedocumented in this encounter Care Teams Design Specialist Relationship Specialty Start Date End Date Akil Serrano MD [address] [place] [address] PCP - General 02/21/10 04/16/11 documented as of this encounter
--- OUTSIDE RECORDS SUMMARY | 2024-08-06 01:00 | XMS_ITS | Encounter Summary ---
Author Organization [facility] Address [address] [place] [address] Care Team Providers Care Bucket Turner Name Role Phone Yossi Torres MD Primary Care Provider [phone] Reason for Visit * Reason Onset Date Comments Abnormal Lab 01/22/2012 Encounter Details Date Type Department Care Team (Late st Contact Info) Description 01/22/2012 Telephone [facility] Endocrinology - [facility] [address] [place] [address] Wilder Zaidi DO 62 [facility] [address] [place] [address] Abnormal Lab Social History Tobacco [...] Info) Description 10/01/2024 13:40 EDT Office Visit [facility] Endocrinology - [facility] 62 [place], [place] [phone] Wilder Zaidi DO 62 [facility] [address] [place] [address] documented as of this encounter Visit Diagnoses Not on filedocumented in this encounter Care Teams Bucket Turner Relationship Specialty Start Date End Date Yossi Torres MD [address] [place] [address] [address]O [address] [place] [phone] PCP - General 04/17/11 03/14/16 documented as of this encounter
--- OUTSIDE RECORDS SUMMARY | 2024-08-06 01:00 | XMS_ITS | Encounter Summary ---
Author Organization [facility] Address [address] [place] [address] Care Team Providers Care Timber Robber Name Role Phone Yossi Torres MD Primary Care Provider [phone] Reason for Visit * Reason Onset Date Comments Medication Questions 05/15/2012 Encounter Details Date Type Department Care Team (Late st Contact Info) Description 05/15/[address] [facility] Endocrinology - [facility] [address] [place] [address] Wilder Zaidi DO 62 [facility] [address] [place] [address] Medication Questions Social History Tobacco [...] [facility] Endocrinology - [facility] [address] [place] [address] Wilder Zaidi, 62 [facility] [address] [place] [address] documented as of this encounter Visit Diagnoses Not on filedocumented in this encounter Care Teams Timber Robber Relationship Specialty Start Date End Date Yossi Torres MD [address] [place] [address] [address] [place] [phone] PCP - General 04/17/11 03/14/16 documented as of this encounter
--- OUTSIDE RECORDS SUMMARY | 2024-08-06 01:00 | XMS_ITS | Encounter Summary ---
Author Organization [facility] Address [address] [place] [address] Care Team Providers Care Pocket Stitcher Name Role Phone Akil Serrano MD Primary Care Provider [phone] Reason for Visit * Reason Onset Date Comments Results 11/26/2010 Sodium 151 up fr om 148 last week on 80 oz daily water (increase from baseline) - I told her to go up to 100 oz daily water and recheck Encounter Details Date Type Department Care Team (Late st Contact Info) Description 11/26/2010 Telephone [facility] Endocrinology - [address] [address] Ramon Lucero MD [address] [place] [address], [address] [address] Results (Sodium 151 up from [...] Telephone Encounter - Ramon Lucero - 11/26/2010 9341 EDT Sodium 151 up from 148 last week on 80 oz daily water (increase from baseline) - I told her to go up to 100 oz daily water and recheck . documented in this encounter Plan of Treatment Upcoming Encounters Date Type Department Care Team (Late st Contact Info) Description 10/01/2024 13:40 EDT Office Visit [facility] Endocrinology - [facility] [address] [place] [address] Wilder Zaidi, 62 [facility] [address] [place] [address] documented as of this encounter Visit Diagnoses Not on filedocumented in this encounter Care Teams Pocket Stitcher Relationship Specialty Start Date End Date Akil Serrano MD [address] [place] [address] PCP - General 02/21/10 04/16/11 documented as of this encounter
--- OUTSIDE RECORDS SUMMARY | 2024-08-06 01:00 | XMS_ITS | Encounter Summary ---
Author Organization [facility] Address [address] [place] [address] Care Team Providers Care Interpreter And Translator Name Role Phone Yossi Torres MD Primary Care Provider [phone] Reason for Visit * Reason Onset Date Comments Other 06/23/2012 sodium 134 Encounter Details Date Type Department Care Team (Late st Contact Info) Description 06/23/2012 Telephone [facility] Endocrinology - [facility] [address] [place] [address] Wilder Zaidi DO [address] [facility] [address] [place] [address] Other (sodium 134) Social History [...] [facility] - [facility] [address] [place], [place] [id number] Wilder Zaidi DO [address] [facility] [address] [place] [phone] documented as of this encounter Visit Diagnoses Not on filedocumented in this encounter Care Teams Interpreter And Translator Relationship Specialty Start Date End Date Yossi Torres MD [address] [place] [address] [address] [place] [phone] PCP - General 04/17/11 03/14/16 documented as of this encounter
--- OUTSIDE RECORDS SUMMARY | 2024-08-06 01:00 | XMS_ITS | Encounter Summary ---
Author Organization [facility] Address [address] [place] [address] Care Team Providers Care Mud Analysis Well Logging Captain Name Role Phone Yossi Torres MD Primary Care Provider [phone] Reason for Visit * Reason Onset Date Comments Results 06/01/2011 Results 06/03/2011 Encounter Details Date Type Department Care Team (Late st Contact Info) Description 06/01/2011 Telephone [facility] Endocrinology - [facility] [address] [place] [address] Wilder Zaidi DO 62 [facility] [address] [place] [address] Results; Results Social History Tobacco [...] Office Visit [facility] Endocrinology - [facility] [address] [place], [place] [phone] Wilder Zaidi DO 62 [facility] [address] [place] [address] documented as of this encounter Visit Diagnoses Not on filedocumented in this encounter Care Teams Mud Analysis Well Logging Captain Relationship Specialty Start Date End Date Yossi Torres MD [address] [place] [address] [address] [place] [phone] PCP - General 04/17/11 03/14/16 documented as of this encounter
--- OUTSIDE RECORDS SUMMARY | 2024-08-06 01:00 | XMS_ITS | Encounter Summary ---
Author Organization [facility] Address [address] [place] [address] Care Team Providers Care Organ Pipe Finisher Name Role Phone Akil Serrano MD Primary Care Provider [phone] Reason for Visit * Reason Onset Date Comments Medication Problem 07/10/2010 REQUESTING CA LL BACK TO DISCUSS PT'S MEDICATION. REQUESTING CALL BACK FROM THE Encounter Details Date Type Department Care Team (Late st Contact Info) Description [facility] [address] [address] Wilder Zaidi DO [address] [facility] [address] [place] [address] Medication Problem (REQUESTING CALL BACK [...] Encounter - Wilder Zaidi DO - 07/10/2010 8107 EST Spoke with Bettina Michelle's sister. She [...] slight darkening of his urine. Miguel Angel's compressor mechanic Marta noticed a continued decrease in urination to 3 times per day and dark beer colored urine Sunday 07/09 and Monday 07/10. Patient had sodium level drawn on 07/09/[address] [facility] ER after being told to go [...] Bettina to speak with Marta (Miguel Angel's compressor mechanic) and reduce DDAVP to 0.1 mg tablet one half tab BID and to increase fluid to 60 oz per day. Miguel Angel will have a repeat sodium level in the am Friday07/11/10. I have faxed the orders to [facility]. I advised Bettina to have Miguel Angel taken to ED if hiscondition were to change. documented in this encounter Plan of Treatment Upcoming Encounters Date Type Department Care Team (Late st Contact Info) Description 10/01/2024 13:40 EDT Office Visit [facility] Endocrinology - [facility] [address] [place], [place] [phone] Wilder Zaidi DO 62 [facility] [address] [place] [address] documented as of this encounter Visit Diagnoses Diagnosis Primary central diabetes insipidus (HCC-CMS)- Primary Diabetes insipidus documented in this encounter Care Teams Organ Pipe Finisher Relationship Specialty Start Date End Date Akil Serrano MD [address] [facility] [place] [address] PCP - General 02/21/10 04/16/11 documented as of this encounter
--- OUTSIDE RECORDS SUMMARY | 2024-08-06 01:00 | XMS_ITS | Encounter Summary ---
Author Organization [facility] Address [address] [place] [address] Care Team Providers Care Record Filing Clerk Name Role Phone Yossi Torres MD Primary Care Provider [phone] Reason for Visit * Reason Onset Date Comments Other 01/06/2012 not urinating ye sterday Encounter Details Date Type Department Care Team (Late st Contact Info) Description 01/06/2012 Telephone [facility] Endocrinology - [facility] [address] [place] [address] Wilder Zaidi DO 62 [facility] [address] [place] [address] Other (not urinating yesterday) Social [...] EDT Office Visit [facility] Endocrinology - [address] [phone] Wilder Zaidi DO [address] [facility] [address] [place] [address] documented as of this encounter Visit Diagnoses Not on filedocumented in this encounter Care Teams Record Filing Clerk Relationship Specialty Start Date End Date Yossi Torres MD [address] [place] [address] [address] [place] [phone] PCP - General 04/17/11 03/14/16 documented as of this encounter
--- OUTSIDE RECORDS SUMMARY | 2024-08-06 01:00 | XMS_ITS | Encounter Summary ---
Author Organization [facility] Address [address] [place] [address] Care Team Providers Care Hair Preparer Name Role Phone Yossi Torres MD Primary Care Provider [phone] Reason for Visit * Reason Comments New Patient Visit head MRI Encounter Details Date Type Department Care Team (Latest Contact Info) Description 04/18/2011 12:00 EDT Office Visit [facility] Neurosurgery - [place] [address] [place] [address] Marvin Perez MD [address] [place] [phone] Craniopharyngioma (CMS-HCC) (HCC-CMS) (Primary Dx) Discharge [...] documented in this encounter Progress Notes * Funeral Assistant, Scan - 04/19/2011 1045 EDT * Marvin Perez - 04/18/2011 1241 EDT This office note has been dictated. 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 04/18/2011 documented as of this encounter Care Teams Hair Preparer Relationship Specialty Start Date End Date Yossi Torres MD [address] [place] [address] DR [address] [place] [phone] PCP - General 04/17/11 03/14/16 documented as of this encounter
--- OUTSIDE RECORDS SUMMARY | 2024-08-06 01:00 | XMS_ITS | Encounter Summary ---
Author Organization [facility] Address [address] [place] [address] Care Team Providers Care Airline Lounge Receptionist Name Role Phone Akil Serrano MD Primary Care Provider [phone] Reason for Visit * Reason Onset Date Comments Results 11/30/2010 his sodium was 1 40 (down from 151 the week before) from 100 oz water for several dys (4 days?) I am having them go back to 60 oz today and recheck Friday Encounter Details Date Type Department Care Team (Late st Contact Info) Description 11/30/2010 Telephone [facility] Endocrinology - [address] [address] Ramon Lucero MD [facility] [address] [place] [address] Results (his sodium was 140 [...] Telephone Encounter - Ramon Lucero - 11/30/2010 9475 EDT Sodium came down to 140 on [...] Visit [facility] Endocrinology - [facility] [address] [place], [place] [phone] Wilder Zaidi, [address] [facility] [address] [place] [phone] documented as of this encounter Visit Diagnoses Not on filedocumented in this encounter Care Teams Airline Lounge Receptionist Relationship Specialty Start Date End Date Akil Serrano MD [address] [facility] [address] [place] [address] PCP - General 02/21/10 04/16/11 documented as of this encounter
--- OUTSIDE RECORDS SUMMARY | 2024-08-06 01:00 | XMS_ITS | Encounter Summary ---
Author Organization [facility] Address [address] [place] [address] Care Team Providers Care Tablet Machine Operator Name Role Phone Akil Serrano MD Primary Care Provider [phone] Reason for Visit * Reason Onset Date Comments Labs Only 07/17/2010 Encounter Details Date Type Department Care Team (Late st Contact Info) Description 07/17/2010 Orders Only [facility] Endocrinology - [facility] [address] [place] [address] Wilder Zaidi DO 62 [facility] [address] [place] [address] Primary central diabetes insipidus (CMS-HCC) [...] EDT Office Visit [facility] Endocrinology [facility] [address] [place] [address] Wilder Zaidi DO 62 [facility] [address] [place] [address] documented as of this encounter Visit Diagnoses Diagnosis Primary central diabetes insipidus (HCC-CMS)- Primary Diabetes insipidus documented in this encounter Care Teams Tablet Machine Operator Relationship Specialty Start Date End Date Akil Serrano MD [address] [facility] [place] [address] PCP - General 02/21/10 04/16/11 documented as of this encounter
--- OUTSIDE RECORDS SUMMARY | 2024-08-06 01:00 | XMS_ITS | Encounter Summary ---
Author Organization [facility] Address [address] [place] [address] Care Team Providers Care Fabrication And Layout Craftsman Name Role Phone Yossi Torres MD Primary Care Provider [phone] Reason for Visit * Reason Onset Date Comments Results 04/21/2012 Follow-up 04/21/2012 Encounter Details Date Type Department Care Team (Late st Contact Info) Description 04/21/2012 Telephone [facility] Endocrinology - [facility] [address] [place] [address] Wilder Zaidi, [address] [facility] [address] [place] [address] Results; Follow-up Social History Tobacco [...] phone. I have review laboratory results from [facility] dated 04/20/12. Advise that solidum level was normal at 128. Continue current doses. documented in this encounter Plan of Treatment Upcoming Encounters Date Type Department Care Team (Late st Contact Info) Description 10/01/2024 13:40 EDT Office Visit [facility] Endocrinology - [facility] [address] [place] [address] Wilder Zaidi DO [address] [facility] [address] [place] [address] documented as of this encounter Visit Diagnoses Not on filedocumented in this encounter Care Teams Fabrication And Layout Craftsman Relationship Specialty Start Date End Date Yossi Torres MD [address] [place] [address] [address] [place] [phone] PCP - General 04/17/11 03/14/16 documented as of this encounter
--- OUTSIDE RECORDS SUMMARY | 2024-08-06 01:00 | XMS_ITS | Encounter Summary ---
Author Organization [facility] Address [address] [place] [address] Care Team Providers Care Box Covering Machine Operator Name Role Phone Yossi Torres MD Primary Care Provider [phone] Reason for Visit * Reason Comments Pituitary Abnormality f/u Encounter Details Date Type Department Care Team (Latest Contact Info) Description 05/03/2011 11:20 EDT Office Visit [facility] Endocrinology - [facility] [address] [place] [address] Wilder Zaidi, [address] [facility] [address] [place] [address] Primary central diabetes insipidus (CMS-HCC) ([facility]); 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 Radha Conteh is here from [facility] as well as both his caretakers. I received a letter from Dr Rondon on 03/26/2011 where he expressed concern that the caregivers had told him that there was some increase in urine volume and behavioral issues, that Miguel Angel's director of community education did not contact my office with these [...] and symptoms of hyponatremia today with the director of community education, nurse and patient's sister, although the subtle [...] DO - Job ID: SM Doc ID: [id number] Ext Doc ID: [id number] cc: Yossi Torres MD * Wilder Zaidi DO - 05/09/2011 0941 EDT This office note has been dictated. 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
--- OUTSIDE RECORDS SUMMARY | 2024-08-06 01:00 | XMS_ITS | Encounter Summary ---
Author Organization [facility] Address [address] [place] [address] Care Team Providers Care Salvage Laborer Name Role Phone Yossi Torres MD Primary Care Provider Emilee Cody MD Primary Care Provider + Ren Vaz MD Primary Care Provider [phone] Reason for Visit * Reason Comments Other Encounter Details Date Type Department Care Team (Late st Contact Info) Description 07/27/2013 Refill [facility] Endocrinology - [facility] [address] [place] [address] Wilder Zaidi, 62 [facility] [address] [place] [address] Other Social History Tobacco Use [...] [facility] - [place] [address] [place] [address] Wilder Zaidi, 62 [facility] [address] [place] [address] documented as of this encounter Visit Diagnoses Not on filedocumented in this encounter Discontinued Medications Medication Sig Discontinue Reason Start Date End Da te desmopressin (DDAVP) 0.1 mg tablet TAKE ONE TABLET BY MOUTH EVERY DAY AND TAKE 1/2 TABLET EVERY EVENING Dose adjustment 04/19/2013 07/29/2013 documented as of this encounter Care Teams Salvage Laborer Relationship Specialty Start Date End Date Yossi Torres MD [address] [place] [address] [phone] PCP - General 04/17/11 03/14/16 Emilee Cody MD [address] [place] [phone] PCP - General 03/15/16 09/29/18 Ren Vaz MD [address] [place] [address] [place] [address] PCP - General 09/30/18 documented as of this encounter
--- OUTSIDE RECORDS SUMMARY | 2024-08-06 01:00 | XMS_ITS | Encounter Summary ---
Author Organization [facility] Address [address] [place] [address] Care Team Providers Care Retail Agent Name Role Phone Akil Serrano MD Primary Care Provider [phone] Reason for Visit * Reason Onset Date Comments Medications Refill 03/19/2011 Encounter Details Date Type Department Care Team (Late st Contact Info) Description 03/19/2011 Refill [facility] Endocrinology [address] [address] Tejal Carreno RN CDE Medications [...] EDT Office Visit [facility] Endocrinology [address] [address] Wilder Zaidi, DO 62 [facility] [address] [place] [address] documented as of this encounter Visit Diagnoses Not on filedocumented in this encounter Care Teams Retail Agent Relationship Specialty Start Date End Date Akil Serrano MD [address] [place] [address] PCP - General 02/21/10 04/16/11 documented as of this encounter
--- OUTSIDE RECORDS SUMMARY | 2024-08-06 01:00 | XMS_ITS | Encounter Summary ---
Author Organization [facility] Address [address] [place] [address] Care Team Providers Care Data Integration Analyst Name Role Phone Akil Serrano MD Primary Care Provider [phone] Reason for Visit * Reason Onset Date Comments Other 11/21/2010 Encounter Details Date Type Department Care Team (Late Contact Info) Description 11/21/2010 Telephone [facility] Endocrinology - [facility] [address] [place] [address] Wilder Zaidi, 62 [facility] [address] [place] [address] Other Social History Tobacco Use [...] Office Visit [facility] Endocrinology - [facility] [address] [facility], [place] [phone] Wilder Zaidi, 62 [facility] [address] [place] [address] documented as of this encounter Visit Diagnoses Not on filedocumented in this encounter Care Teams Data Integration Analyst Relationship Specialty Start Date End Date Akil Serrano MD [address] [place] [address] PCP - General 02/21/10 04/16/11 documented as of this encounter
--- OUTSIDE RECORDS SUMMARY | 2024-08-06 01:00 | XMS_ITS | Encounter Summary ---
Author Organization [facility] Address [address] [place] [address] Care Team Providers Care Travel Manager Name Role Phone Yossi Torres MD Primary Care Provider [phone] Reason for Visit * Reason Onset Date Comments Medications Refill 06/18/2011 Encounter Details Date Type Department Care Team (Late st Contact Info) Description 06/18/2011 Refill [facility] [address] [place] [address] Georgia Rice RN Medications Refill [...] Info) Description 10/01/2024 13:40 EDT Office Visit [facility] [address] [place] [address] Wilder Zaidi DO 62 [facility] [address] [place] [address] documented as of this encounter Visit Diagnoses Not on filedocumented in this encounter Discontinued Medications Medication Sig Discontinue Reason Start Date End Da te testosterone (ANDROGEL) 1 %(50 mg/5 gram) gel Place 5 g onto the skin daily. Reorder 07/27/2010 06/18/2011 documented as of this encounter Care Teams Travel Manager Relationship Specialty Start Date End Date Yossi Torres MD [address] [place] [address] [address] [place] [phone] PCP - General 04/17/11 03/14/16 documented as of this encounter
--- OUTSIDE RECORDS SUMMARY | 2024-08-06 01:00 | XMS_ITS | Encounter Summary ---
Author Organization [facility] Address [address] [place] [address] Care Team Providers Care Senior Talent Acquisition Specialist Name Role Phone Akil Serrano MD Primary Care Provider [phone] Reason for Visit * Reason Onset Date Comments Results 02/07/2011 Encounter Details Date Type Department Care Team (Late st Contact Info) Description 02/07/2011 Telephone [facility] Endocrinology - [facility] [address] [place] [address] Wilder Zaidi DO [address] [facility] [address] [place] [address] Results Social History Tobacco Use [...] EDT Office Visit [facility] Endocrinology - [place] [address] [facility] [address] Wilder Zaidi, [address] [facility] [address] [place] [address] documented as of this encounter Visit Diagnoses Not on filedocumented in this encounter Care Teams Senior Talent Acquisition Specialist Relationship Specialty Start Date End Date Akil Serrano MD [address] [place], [place] [phone] PCP - General 02/21/10 04/16/11 documented as of this encounter
--- OUTSIDE RECORDS SUMMARY | 2024-08-06 01:00 | XMS_ITS | Encounter Summary ---
Author Organization [facility] Address [address] [place] [address] Care Team Providers Care Application Administrator Name Role Phone Yossi Torres MD Primary Care Provider [phone]- [phone] Reason for Visit * Reason Onset Date Comments Results 12/25/2011 Encounter Details Date Type Department Care Team (Late st Contact Info) Description 12/25/2011 Telephone [facility] Endocrinology - [facility] [address] [place] [address] Wilder Zaidi, 62 [facility] [address] [place] [address] Results Social History Tobacco Use [...] Encounter - Marta Rice RN - 12/25/2011 4315 EDT Phone call to Miguel Angel's home (left message for caregiver to call back) Phone call from Bettina (his guardian)--informed her of Dr. Zaidi's message below. * Telephone Encounter - Wilder Zaidi DO - 12/25/2011 2269 EDT Please contact Miguel Angel's caretakers by phone. [facility] dated 12/21/11 show normal sodium at 143. Kidney and thyroid function tests were normal. documented in this encounter Plan of Treatment Upcoming Encounters Date Type Department Care Team (Late st Contact Info) Description 10/01/2024 13:40 EDT Office Visit [facility] Endocrinology - [facility] [address] [place] [address] Wilder Zaidi DO 62 [facility] [address] [place] [address] documented as of this encounter Visit Diagnoses Not on filedocumented in this encounter Care Teams Application Administrator Relationship Specialty Start Date End Date Yossi Torres MD [address] [place] [address] [facility] 2 [place] [phone] PCP - General 04/17/11 03/14/16 documented as of this encounter
--- OUTSIDE RECORDS SUMMARY | 2024-08-06 01:00 | XMS_ITS | Encounter Summary ---
Author Organization [facility] Address [address] [place] [address] Care Team Providers Care Painter Sign Maintenance Name Role Phone Yossi Torres MD Primary Care Provider +1 [phone] Reason for Visit * Reason Comments Other Encounter Details Date Type Department Care Team (Late st Contact Info) Description 12/25/2011 Refill [facility] Endocrinology - [facility] [address] [place] [address] Wilder Zaidi, 62 [facility] [address] [place] [address] Other Social History Tobacco Use [...] Telephone Encounter - Karen Tellez - 12/25/2011 6933 EDT Testosterone called in to [facility] in [place] documented in this encounter Plan of Treatment Upcoming Encounters Date Type Department Care Team (Late st Contact Info) Description 10/01/2024 13:40 EDT Office Visit [facility] Endocrinology - [facility] [address] [facility] [address] [place], [place] [phone] Wilder Zaidi, DO [address] [facility] [address] [place] [address] documented as of this encounter Visit Diagnoses Not on filedocumented in this encounter Discontinued Medications Medication Sig Discontinue Reason Start Date End Da te testosterone (ANDROGEL) 1 %(50 mg/5 gram) gel Place 5 g onto the skin daily. Reorder 06/18/2011 12/25/2011 documented as of this encounter Care Teams Painter Sign Maintenance Relationship Specialty Start Date End Date Yossi Torres MD [address] [place] [address] [address] [place] [phone] PCP - General 04/17/11 03/14/16 documented as of this encounter
--- OUTSIDE RECORDS SUMMARY | 2024-08-06 01:00 | XMS_ITS | Encounter Summary ---
Author Organization [facility] Address [address] [place] [address] Care Team Providers Care Credit Manager Name Role Phone Yossi Torres MD Primary Care Provider [phone]- [phone] Encounter Details Date Type Department Care Team (Latest Contact Info) Description 07/29/2013 Orders Only [facility] Endocrinology - [address] [address] Tejal Carreno, RN CDE Panhypopituitarism [...] EDT Office Visit [facility] Endocrinology [facility] [address] [place] [address] Wilder Zaidi, 62 [facility] [address] [place] [address] documented as of this encounter Visit Diagnoses Diagnosis Panhypopituitarism (HCC-CMS)- Primary Panhypopituitarism documented in this encounter Care Teams Credit Manager Relationship Specialty Start Date End Date Yossi Torres MD [address] [place] [address] [address] [place] [phone] PCP - General 04/17/11 03/14/16 documented as of this encounter
--- OUTSIDE RECORDS SUMMARY | 2024-08-06 01:00 | XMS_ITS | Encounter Summary ---
Author Organization [facility] Address [address] [place] [address] Care Team Providers Care Automotive Lube Technician Name Role Phone Yossi Torres MD Primary Care Provider [phone] Reason for Visit * Reason Comments Other Encounter Details Date Type Department Care Team (Late st Contact Info) Description 01/12/2013 Refill [facility] Endocrinology [facility] [address] [place], [place] [phone] Wilder Zaidi DO 62 [facility] [address] [place] [address] Other Social History Tobacco Use [...] 13:40 EDT Office Visit [facility] Endocrinology [facility] [address] [place], [place] [phone] Wilder Zaidi, DO 62 [facility] [address] [place] [address] documented as of this encounter Visit Diagnoses Not on filedocumented in this encounter Discontinued Medications Medication Sig Discontinue Reason Start Date End Da te desmopressin (DDAVP) 0.1 mg tablet TAKE ONE TABLET BY MOUTH EVERY MORNING AND 1/2 TABLET AT BEDTIME Reorder 04/16/2012 01/12/2013 documented as of this encounter Care Teams Automotive Lube Technician Relationship Specialty Start Date End Date Yossi Torres MD [address] [place] [address] DR BUITRAGO [address] [place] [phone] PCP - General 04/17/11 03/14/16 documented as of this encounter
--- OUTSIDE RECORDS SUMMARY | 2024-08-06 01:00 | XMS_ITS | Encounter Summary ---
Author Organization [facility] Address [address] [place] [address] Care Team Providers Care Corncob Pipe Manufacturing Supervisor Name Role Phone Akil Serrano MD Primary Care Provider [phone] Reason for Visit * Reason Onset Date Comments Diabetes 07/13/[address] Trena Zaidi know [facility] patient's sodium level checked today at [facility], at 139. Encounter Details Date Type Department Care Team (Late st Contact Info) Description 07/13/2010 Telephone [facility] Endocrinology - [facility] [address] [place] [address] Wilder Zaidi, 62 [facility] [address] [place] [address] Diabetes (Called to let Dr. Zaidi know sweetie patient's sodium level checked today at [facility], at 139. ) Social History Tobacco Use [...] [facility] Endocrinology - [facility] [address] [place] [address] Wilder Zaidi, 62 [facility] [address] [place] [address] documented as of this encounter Visit Diagnoses Not on filedocumented in this encounter Care Teams Corncob Pipe Manufacturing Supervisor Relationship Specialty Start Date End Date Akil Serrano MD [address] [place] [address] PCP - General 02/21/10 04/16/11 documented as of this encounter
--- OUTSIDE RECORDS SUMMARY | 2024-08-06 01:00 | XMS_ITS | Encounter Summary ---
Author Organization [facility] Address [address] [place] [address] Care Team Providers Care Cardiovascular Technician Name Role Phone Yossi Torres MD Primary Care Provider [phone] Reason for Visit * Reason Comments Follow-up Panhypopituitarism,d iabetes insipidus,hypogonadism Encounter Details Date Type Department Care Team (Latest Contact Info) Description 11/04/2011 13:40 EDT Office Visit [facility] Endocrinology - [facility] [address] [place] [address] Wilder Zaidi, 62 [facility] [address] [place] [address] Panhypopituitarism (HCC-CMS) (Primary Dx) Social [...] today by his sister Bettina and his printing specialist from [facility] as well as both of [...] nonverbal but seems appropriate, according to his courseware developer and sister. He was able to sit [...] caretakers. He is accompanied today by his courseware developer from [facility] as well as his sister [...] and symptoms of hyponatremia today with the courseware developer and patient's sister, although the subtle signs [...] Office Visit [facility] Endocrinology - [facility] [address] [place], [place] [phone] Wilder Zaidi DO 62 [facility] [address] [place] [address] documented as of this encounter Visit Diagnoses Diagnosis Panhypopituitarism ([facility]-CMS)- Primary Panhypopituitarism documented in this encounter Care Teams Cardiovascular Technician Relationship Specialty Start Date End Date Yossi Torres MD [address] [place] [address] [address] 2 [place] [phone] PCP - General 04/17/11 03/14/16 documented as of this encounter
--- OUTSIDE RECORDS SUMMARY | 2024-08-06 01:00 | XMS_ITS | Encounter Summary ---
Author Organization [facility] Address [address] [place] [address] Care Team Providers Care Clinical Nurse Manager Name Role Phone Yossi Torres MD Primary Care Provider [phone] Encounter Details Date Type Department Care Team (Late st Contact Info) Description 02/01/2013 Orders Only [facility] Endocrinology - [address] [address] Karen Tellez RN Social History Tobacco Use [...] Notes * Georgia Rice RN - 02/04/2013 6590 EDT Called Androgel into his pharmacy. He needs an appointment before further refills per Dr. Zaidi. documented in this encounter Plan of Treatment Upcoming Encounters Date Type Department Care Team (Late st Contact Info) Description 10/01/2024 13:40 EDT Office Visit [facility] Endocrinology - [place] [address] [place] [address] Wilder Zaidi, 62 [facility] [address] [place] [address] documented as of this encounter Visit Diagnoses Not on filedocumented in this encounter Discontinued Medications Medication Sig Discontinue Reason Start Date End Da te ANDROGEL 1 %(50 mg/5 gram) gel ONE PACKET ONCE DAILY TOPICALLY Reorder 06/28/2012 02/01/2013 documented as of this encounter Care Teams Clinical Nurse Manager Relationship Specialty Start Date End Date Yossi Torres MD [address] [place] [address] [facility] 2 [place] [phone] PCP - General 04/17/11 03/14/16 documented as of this encounter
--- OUTSIDE RECORDS SUMMARY | 2024-08-06 01:00 | XMS_ITS | Encounter Summary ---
Author Organization [facility] Address [address] [place] [address] Care Team Providers Care Car Cooper Name Role Phone Akil Serrano MD Primary Care Provider Reason for Visit * Reason Onset Date Comments Medications Refill 07/26/2010 PATIENT OUT O F MED Encounter Details Date Type Department Care Team (Late st Contact Info) Description 07/26/[address] [address] Wilder Zaidi, 62 [facility] [address] [place] [address] Medications Refill (PATIENT OUT OF [...] EDT Office Visit [facility] Endocrinology [address] [place], [place] [phone] Wilder Zaidi, 62 [facility] [address] [place] [address] documented as of this encounter Visit Diagnoses Not on filedocumented in this encounter Discontinued Medications Medication Sig Discontinue Reason Start Date End Da te testosterone (ANDROGEL) 1 % (25 mg/2.5 g) GlPk Apply topically daily. 07/27/2010 documented as of this encounter Care Teams Car Cooper Relationship Specialty Start Date End Date Akil Serrano MD [address] [facility] [address] [place] [address] PCP - General 02/21/10 04/16/11 documented as of this encounter
--- OUTSIDE RECORDS SUMMARY | 2024-08-06 01:00 | XMS_ITS | Encounter Summary ---
Author Organization [facility] Address [address] [place] [address] Care Team Providers Care Slab Tripper Name Role Phone Yossi Torres MD Primary Care Provider [phone] Reason for Visit * Reason Onset Date Comments Medications Refill 02/08/2013 Encounter Details Date Type Department Care Team (Late st Contact Info) Description 02/08/2013 Refill [facility] Endocrinology - [facility] [address] [place] [address] Wilder Zaidi, 62 [facility] [address] [place] [address] Medications Refill Social History Tobacco [...] Office Visit [facility] Endocrinology - [facility] 62 [place] [address] Wilder Zaidi, 62 [facility] [address] [place] [address] documented as of this encounter Visit Diagnoses Not on filedocumented in this encounter Care Teams Slab Tripper Relationship Specialty Start Date End Date Yossi Torres MD [address] [place] [address] [address] [place] [phone] PCP - General 04/17/11 03/14/16 documented as of this encounter
--- OUTSIDE RECORDS SUMMARY | 2024-08-06 01:00 | XMS_ITS | Encounter Summary ---
Author Organization [facility] Address [address] [place] [address] Care Team Providers Care Unstacker Name Role Phone Akil Serrano MD Primary Care Provider [phone] Encounter Details Date Type Department Care Team (Latest Contact Info) Description 08/31/2010 10:42 EST - 08/31/2010 23:37 EST Hospital Encounter [facility] Perioperative Services- [facility] [address] [place], [place] [address] Hilton Quick MD [address] [...] - 08/31/2010 1111 EST 1055-pt admitted to [facility] bed # 3 for sedated MRI-support [...] [facility] - [address] [address] Wilder Zaidi, 62 [facility] [address] [place] [address] documented as of this encounter [...] 12/27/2014 added in this encounter Care Teams Unstacker Relationship Specialty Start Date End Date Akil Serrano MD [address] [facility] [address] [place] [address] PCP - General 02/21/10 04/16/11 documented as of this encounter
--- OUTSIDE RECORDS SUMMARY | 2024-08-06 01:00 | XMS_ITS | Encounter Summary ---
Author Organization [facility] Address [address] [place] [address] Care Team Providers Care Rock Crushing Machine Operator Name Role Phone Yossi Torres MD Primary Care Provider [phone] Emilee Cody MD Primary Care Provider + Reason for Visit * Reason Onset Date Comments Results 10/08/2012 Encounter Details Date Type Department Care Team (Late st Contact Info) Description 10/08/2012 Telephone [facility] Endocrinology - [facility] [address] [place] [address] Wilder Zaidi DO 62 [facility] [address] [place] [address] Results Social History Tobacco Use [...] Encounter - Georgia Rice RN - 10/08/2012 0337 EDT Phone call to Bettina (pt's sister) [...] [facility] Endocrinology - [facility] [address] [place] [address] Wilder Zaidi DO 62 [facility] [address] [place] [address] documented as of this encounter Visit Diagnoses Not on filedocumented in this encounter Care Teams Rock Crushing Machine Operator Relationship Specialty Start Date End Date Yossi Torres MD [address] [place] [phone] PCP - General 04/17/11 03/14/16 Emilee Cody MD [address] [place] [address] PCP - General 03/15/16 09/29/18 documented as of this encounter
--- OUTSIDE RECORDS SUMMARY | 2024-08-06 01:00 | XMS_ITS | Encounter Summary ---
Author Organization [facility] Address [address] [place] [address] Care Team Providers Care Brand Coordinator Name Role Phone Akil Serrano MD Primary Care Provider [phone] Encounter Details Date Type Department Care Team (Latest Contact Info) Description 03/19/2011 Orders Only [facility] Endocrinology - [address] [address] Tejal Carreno RN CDE Panhypopituitarism [...] Office Visit [facility] Endocrinology [facility] [address] [place] [address] Wilder Zaidi, 62 [facility] [address] [place] [address] documented as of this encounter Visit Diagnoses Diagnosis Panhypopituitarism (HCC-CMS)- Primary Panhypopituitarism documented in this encounter Care Teams Brand Coordinator Relationship Specialty Start Date End Date Akil Serrano MD [address] [facility] [place] [address] PCP - General 02/21/10 04/16/11 documented as of this encounter
--- OUTSIDE RECORDS SUMMARY | 2024-08-06 01:00 | XMS_ITS | Encounter Summary ---
Author Organization [facility] Address [address] [place] [address] Care Team Providers Care Detailer Pharmaceuticals Name Role Phone Yossi Torres MD Primary Care Provider [phone] Reason for Visit * Reason Onset Date Comments Results 05/09/2011 Encounter Details Date Type Department Care Team (Late st Contact Info) Description 05/09/2011 Telephone [facility] Endocrinology - [facility] [address] [place] [address] Wilder Zaidi DO 62 [facility] [address] [place] [address] Results Social History Tobacco Use [...] [facility] End[facility] - [facility] [address] [place] [address] Wilder Zaidi, DO 62 [facility] [address] [place] [address] documented as of this encounter Visit Diagnoses Not on filedocumented in this encounter Care Teams Detailer Pharmaceuticals Relationship Specialty Start Date End Date Yossi Torres MD [address] [place] [address] 2 [place] [phone] PCP - General 04/17/11 03/14/16 documented as of this encounter
--- OUTSIDE RECORDS SUMMARY | 2024-08-06 01:00 | XMS_ITS | Encounter Summary ---
Author Organization [facility] Address [address] [place] [address] Care Team Providers Care Malware Analyst Name Role Phone Yossi Torres MD Primary Care Provider [phone] Reason for Visit * Reason Onset Date Comments Results 07/29/2013 Encounter Details Date Type Department Care Team (Late st Contact Info) Description 07/29/2013 Telephone [facility] Endocrinology - [facility] [address] [place] [address] Wilder Zaidi, 62 [facility] [address] [place] [address] Results Social History Tobacco Use [...] reviewed the patient's mostrecent laboratory results from [facility] dated 07/26/13. Advise that sodium [...] Info) Description 10/01/2024 13:40 EDT Office Visit [facility] Endocrinology - [address] [address] Wilder Zaidi DO [address] [place] [address] [address] [place] [address] documented as of this encounter Visit Diagnoses Not on filedocumented in this encounter Discontinued Medications Medication Sig Discontinue Reason Start Date End Da te levothyroxine (SYNTHROID) 200 mcg tabletIndications:Gonadotro pin deficiency (HCC-CMS),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HCC-CMS),Panhypopituitaris m (HCC-CMS),Primary central diabetes insipidus (HCC-CMS),Secondary hypothyroidism Take 1 Tab by mouth daily. Dose adjustment 07/26/2013 07/29/2013 documented as of this encounter Care Teams Malware Analyst Relationship Specialty Start Date End Date Yossi Torres MD [address] [place] [address] DR BU[address]O [address] [place] [phone] PCP - General 04/17/11 03/14/16 documented as of this encounter
--- OUTSIDE RECORDS SUMMARY | 2024-08-06 01:00 | XMS_ITS | Encounter Summary ---
Author Organization [facility] Address [address] [place] [address] Care Team Providers Care Slitter Scorer Cut Off Operator Name Role Phone Yossi Torres MD Primary Care Provider [phone] Reason for Visit * Reason Comments Pituitary Abnormality Encounter Details Date Type Department Care Team (Latest Contact Info) Description 07/26/2013 11:00 EST Office Visit [facility] Endocrinology - [facility] [address] [place], [place] [phone] Wilder Zaidi, 62 [facility] [address] [place] [address] Gonadotropin deficiency (CMS-HCC) (HCC-CMS) (Primary [...] he said he was sad by his train clerk today. Mood has been stable according to his train clerk and sister. 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 Currently lives with his caretakers accompanied today by his train clerk and his sister, Bettina. Central diabetes insipidus [...] Visit [facility] Endocrinology - [address] [address] Wilder Zaidi DO 62 [facility] [address] [place] [address] documented as of this encounter Results * (ABNORMAL) HEMAGRAM (07/26/2013 12:17 EST) Pathologist [facility] WBC 4.58 4.0 - 10.4 K/cmm [facility] [...] Performing Organization Address [facility] Co de Phone Number [facility] [address] [place] [address] * (ABNORMAL) T4 FREE (07/26/2013 12:17 EST) Free T4 2.3(H) 0.8 - 1.8 ng/dL [facility] Blood specimen (specimen) 07/26/2013 12:17 EST 07/26/2013 15:09 EST Widler Zaidi DO CHEMISTRY & BLOOD GAS ORDERABLES Final Result Performing Organization Address [facility] Co de Phone Number [facility] [address] [place] [address] * (ABNORMAL) ELECTROLYTES (07/26/2013 12:17 EST) Sodium [...] ORDERABLES Final Result [facility] [address] [place] [address] documented in this encounter Visit Diagnoses Diagnosis [...] 4 added in this encounter Care Teams Slitter Scorer Cut Off Operator Relationship Specialty Start Date End Date Yossi Torres MD [address] [place] [address] [address] [place] [phone] PCP - General 04/17/11 03/14/16 documented as of this encounter
--- OUTSIDE RECORDS SUMMARY | 2024-08-06 01:00 | XMS_ITS | Encounter Summary ---
Author Organization [facility] Address [address] [place] [address] Care Team Providers Care Precision Grinder Name Role Phone Akil Serrano MD Primary Care Provider Encounter Details Date Type Department Care Team (Late st Contact Info) Description 01/25/2011 Results Only Imaging [facility]- [facility] [phone] Yossi Torres MD [address] [place] [address] [address] [place] [phone] Social History Tobacco Use Types [...] Visit [facility] Endocrinology - [facility] [address] [place] [address] Wilder Zaidi, 62 [facility] [address] [place] [address] documented as of this encounter [...] filedocumented in this encounter Care Teams Precision Grinder Relationship Specialty Start Date End Date Akil Serrano MD [address] [facility] [place] [address] PCP - General 02/21/10 04/16/11 documented as of this encounter
--- OUTSIDE RECORDS SUMMARY | 2024-08-06 01:00 | XMS_ITS | Encounter Summary ---
Author Organization [facility] Address [address] [place] [address] Care Team Providers Care Wine Pasteurizer Name Role Phone Yossi Torres MD Primary Care Provider [phone] Reason for Visit * Reason Comments Other Encounter Details Date Type Department Care Team (Late st Contact Info) Description 04/19/2013 Refill [facility] Endocrinology - [facility] [address] [place] [address] Wilder Zaidi, DO 62 [facility] [address] [place] [address] Other Social History Tobacco Use [...] Encounter - Karen Tellez L - 04/19/2013 7166 EDT Miguel Angel has not been seen [...] [facility] Endocrinology - [facility] [address] [place] [address] Wilder Zaidi, 62 [facility] [address] [place] [address] documented as of this encounter Visit Diagnoses Not on filedocumented in this encounter Discontinued Medications Medication Sig Discontinue Reason Start Date End Da te desmopressin (DDAVP) 0.1 mg tablet TAKE ONE TABLET BY MOUTH EVERY MORNING AND 1/2 TABLET EVERY EVENING Reorder 03/03/2013 04/19/2013 documented as of this encounter Care Teams Wine Pasteurizer Relationship Specialty Start Date End Date Yossi Torres MD [address] [place] [address] DR BUITRAGO [address] [place] [phone] PCP - General 04/17/11 03/14/16 documented as of this encounter
--- OUTSIDE RECORDS SUMMARY | 2024-08-06 01:00 | XMS_ITS | Encounter Summary ---
Author Organization [facility] Address [address] [place] [address] Care Team Providers Care Cnmt Name Role Phone Akil Serrano MD Primary Care Provider [phone] Reason for Visit * Reason Onset Date Comments Appointment Related 04/12/2011 Encounter Details Date Type Department Care Team (Late st Contact Info) Description 04/12/2011 Telephone [facility] Endocrinology - [facility] [address] [place] [address] Wilder Zaidi DO 62 [facility] [address] [place] [address] Appointment Related Social History Tobacco [...] [facility] Endocrinology - [facility] [address] [place], [place] [phone] Wilder Zaidi DO 62 [facility] [address] [place] [phone] documented as of this encounter Visit Diagnoses Not on filedocumented in this encounter Care Teams Cnmt Relationship Specialty Start Date End Date Akil Serrano MD [address] [facility] [address] [place] [address] PCP - General 02/21/10 04/16/11 documented as of this encounter
--- OUTSIDE RECORDS SUMMARY | 2024-08-06 01:00 | XMS_ITS | Encounter Summary ---
Author Organization [facility] Address [address] [place] [address] Care Team Providers Care Automatic Vulcanizing Lead Operator Name Role Phone Yossi Torres MD Primary Care Provider [phone] Emilee Cody MD Primary Care Provider + Ren Vaz MD Primary Care Provider [phone] Reason for Visit * Reason Comments Other Encounter Details Date Type Department Care Team (Late st Contact Info) Description 03/03/2013 Refill [facility] [place] [facility] Endocrinology - [facility] [address] [place] [address] Wilder Zaidi, 62 [facility] [address] [place] [address] Other Social History Tobacco Use [...] Encounter - Georgia Rice RN - 03/03/2013 1442 EDT Patient last visit 11/04/11. Dr. Zaidi wanted to see him back in 6 months. documented in this encounter Plan of Treatment Upcoming Encounters Date Type Department Care Team (Late st Contact Info) Description 10/01/2024 13:40 EDT Office Visit [facility] [place] [facility] Endocrinology - [facility] [address] [place], [place] [phone] Wilder Zaidi, DO 62 [facility] [address] [place] [address] documented as of this encounter Visit Diagnoses Not on filedocumented in this encounter Discontinued Medications Medication Sig Discontinue Reason Start Date End Da te desmopressin (DDAVP) 0.1 mg tablet Take 1 tab PO q AM, 1/2 tab q PM - pt needs appt for further refills. Reorder 02/03/2013 03/03/2013 documented as of this encounter Care Teams Automatic Vulcanizing Lead Operator Relationship Specialty Start Date End Date Yossi Torres MD [address] [place] [phone] PCP - General 04/17/11 03/14/16 Emilee Cody MD [address] [place] [phone] PCP - General 03/15/16 09/29/18 Ren Vaz MD [address] [place] [address] [place] [address] PCP - General 09/30/18 documented as of this encounter
--- OUTSIDE RECORDS SUMMARY | 2024-08-06 01:01 | XMS_ITS | Encounter Summary ---
Author Organization [facility] Address [address] [place] [address] Care Team Providers Care Band Instrument Repairer Name Role Phone Akil Serrano MD Primary Care Provider [phone] Reason for Visit * Reason Onset Date Comments Other 07/09/2010 Patient had sodi um level checked, injection of Desmpressin changed to pill form. Guardian noticed urination frequency down and bright yellow in color Encounter Details Date Type Department Care Team (Late st Contact Info) Description 07/09/2010 Telephone [facility] Endocrinology - [facility] [address] [place] [address] Wilder Zaidi DO 62 [facility] [address] [place] [address] Other (Patient had sodium level [...] Encounter - Wilder Zaidi DO - 07/10/2010 8635 EST Spoke with it audit manager Marta via phone. Patient's guardian Marta and sister attempted to contact office yesterday. Message was not routed to this provider until this am. Patient with complicated medical history including central diabetes insipidus. Switched from SQ to oral DDAVP as a result of national shortage of SQ DDAVP. 4 days after switch it audit manager noticed change in behavior. ER trip last night showed sodium allegedly high. Contacted on-call endocrinologists who increased oral DDAVP to 0.1 mg int he am and 0.5 mg in the evening. Advised family to increased fluid intake to 60 oz per day andto closely monitor urine output. Gave it audit manager PAS number to contact me directly with any questions or concerns. Will check in tomorrow am 07/11/10. May obtain repeat sodium. documented in this encounter Plan of Treatment Upcoming Encounters Date Type Department Care Team (Late st Contact Info) Description 10/01/2024 13:40 EDT Office Visit [facility] Endocrinology - [address] [address] Wilder Zaidi DO [address] [facility] [address] [place] [address] documented as of this encounter Visit Diagnoses Diagnosis Primary central diabetes insipidus (HCC-CMS)- Primary Diabetes insipidus documented in this encounter Care Teams Band Instrument Repairer Relationship Specialty Start Date End Date Akil Serrano MD [address] [facility] [place] [address] PCP - General 02/21/10 04/16/11 documented as of this encounter
--- OUTSIDE RECORDS SUMMARY | 2024-08-06 01:01 | XMS_ITS | Encounter Summary ---
Author Organization [facility] Address [address] [place] [address] Care Team Providers Care Investment Banker Name Role Phone Corin Skinner MD Primary Care Provider Encounter Details Date Type Department Care Team (Latest Contact Info) Description 12/28/2008 9:53 EDT - 12/28/2008 23:59 EDT Hospital Encounter [facility] [address] [place] [address] Jacqueline Early MD [address] [place] [phone] Discharge Disposition: Home or Self Care Social History Tobacco Use Types Packs/Day Years Used Date Smoking Tobacco: Never Assessed Sex and Gender Information Value Date Recorded Sex Assigned at Not on file Legal Sex Male 18:35 EST Gender Identity Not on file Sexual Orientation Not on file documented as of this encounter Discharge Disposition Disposition Code Departure Means Destination Home or Self [facility] documented in this encounter Plan of Treatment Upcoming Encounters Date Type Department Care Team (Late st Contact Info) Description 10/01/2024 13:40 EDT Office Visit [facility] Endocrinology - [facility] [address] [place], [place] [phone] Wilder Zaidi, 62 [facility] [address] [phone] documented as of this encounter Procedures Procedure [...] NEG [facility] Comment:PER FATHER Specific Deridder, Urine Unable to obtain specimen 1.005 - 1.02 [facility] Comment:PER FATHER Blood, UA Unable to obtain specimen(A) NEG [facility] Comment:PER FATHER pH, UA Unable to obtain specimen 5.0 - 9.0 [facility] Comment:PER FATHER Protein, UA Unable to [...] ORDERABLES Final Re sult Performing Organization Address City/[facility]/ZIP Co de Phone Number [facility] [address] [place] [address] * DIRECT BILIRUBIN (12/28/2008 10:01 EDT) Conjugated Bilirubin 0.0 0.0 - 0.3 mg/dl [facility] Unconjugated Bilirubin 0.3 0.1 - 1.1 mg/dl [facility] 12/28/2008 10:0 1 EDT 12/28/2008 10:22 EDT us Jacqueline Early MD CHEMISTRY & BLOOD GAS ORDERABL ES Final Result Performing Organization Address [facility] de Phone Number [facility] [address] [place] [address] * (ABNORMAL) COMPREHENSIVE METABOLIC PANEL (12/28/2008 10:01 [...] ORDERABL ES Final Result Performing Organization Address [facility] de Phone Number [facility] [address] [place] [address] * TESTS ADDED BY PHONE (12/28/2008 10:01 EDT) Tests to be added CMP,DBIL [facility] Diagnosis Code SAME [facility] Who Called [facility] Location Code [facility] Read Back/Confirmed ? YES [facility] 12/28/2008 10:0 1 EDT 12/28/2008 10:22 EDT us Jacqueline Early MD CHEMISTRY & BLOOD GAS ORDERABL ES Final Result Performing Organization Address [facility] de Phone Number [facility] [address] [place] [address] * CORTISOL (12/28/2008 10:01 EDT) Cortisol 18 ug/dl [facility] Comment: 7-9a.m.=4.3-22.4 3-5p.m.=3.1-16.7 Blood specimen (specimen) 12/28/2008 10:01 EDT 12/28/2008 10:22 EDT us Jacqueline Early MD CHEMISTRY & BLOOD GAS ORDERABL ES Final Result Performing Organization Address [facility] de Phone Number [facility] [address] [place] [address] * ELECTROLYTES (12/28/2008 10:01 EDT) Sodium 137 [...] ORDERABL ES Final Result Performing Organization Address [facility] Co de Phone Number [facility] [address] [place] [address] * (ABNORMAL) GLUCOSE, SERUM (12/28/2008 10:01 EDT) Glucose, Serum 49(LL) 70 - 100 mg/dl [facility] Comment:Sample retested, res ult confirmed Blood specimen (specimen) 12/28/2008 10:01 EDT 12/28/2008 10:22 EDT us Jacqueline Early MD CHEMISTRY & BLOOD GAS ORDERABL ES Final Result Performing Organization Address [facility] de Phone Number [facility] [address] [place] [address] documented in this encounter Visit Diagnoses Not on filedocumented in this encounter Care Teams Investment Banker Relationship Specialty Start Date End Date Corin Skinner MD [address] [place] [phone] PCP - General 10/24/08 08/21/09 documented as of this encounter
--- OUTSIDE RECORDS SUMMARY | 2024-08-06 01:01 | XMS_ITS | Encounter Summary ---
Author Organization [facility] Address [address] [place] [address] Care Team Providers Care Betting Clerk Name Role Phone Akil Serrano MD Primary Care Provider [phone] Reason for Visit * Reason Onset Date Comments Medication Problem 06/19/2010 Encounter Details Date Type Department Care Team (Late st Contact Info) Description 06/19/2010 Refill [facility] Endocrinology - [facility] [address] [place], [place] [phone] Wilder Zaidi DO 62 [facility] [address] [place] [address] Medication Problem Social History Tobacco [...] Telephone Encounter - Wilder Zaidi, - 06/19/2010 1099 EST Spoke with Gerry nurse Radha this [...] you have been able to find it. [phone] ext [phone] documented in this encounter Plan of Treatment Upcoming Encounters Date Type Department Care Team (Late st Contact Info) Description 10/01/2024 13:40 EDT Office Visit [facility] Endocrinology - [facility] [address] [place], [place] [phone] Wilder Zaidi DO 62 [facility] [address] [place] [phone] documented as of this encounter Visit Diagnoses Diagnosis Primary central diabetes insipidus (HCC-CMS)- Primary Diabetes insipidus documented in this encounter Discontinued Medications Medication Sig Discontinue Reason Start Date End Da te DESMOPRESSIN ACETATE (DESMOPRESSIN INJ) Inject as directed. Takes .08 ml SQ BID 06/19/2010 documented as of this encounter Care Teams Betting Clerk Relationship Specialty Start Date End Date Akil Serrano MD [address] [facility] [place] [address] PCP - General 02/21/10 04/16/11 documented as of this encounter
--- OUTSIDE RECORDS SUMMARY | 2024-08-06 01:01 | XMS_ITS | Encounter Summary ---
Author Organization [facility] Address [address] [place] [address] Care Team Providers Care Hand Stapler Name Role Phone Akil Serrano MD Primary Care Provider [phone] Reason for Visit * Reason Onset Date Comments Medications Refill 06/12/2010 Encounter Details Date Type Department Care Team (Late st Contact Info) Description 06/12/2010 Refill [facility] - [facility] [address] [place], [place] [address] [facility] [address] [place] [address] Medications Refill Social History Tobacco [...] 06/13/2010 0913 EST Spoke to Radha at [facility]. Miguel Angel has enough DDAVP until next week and sees Dr. Zaidi, adult endo, 06/14/10. Advised her that Dr. Zaidi's office will prescribe medication for the future; he just needs to know what pharmacy to use. * Telephone Encounter - [place] Cool - 06/12/2010 1600 EST Radha is calling from [facility] [employer] (her EXT is [phone]). Pt's medication can [...] Visit [facility] Endocrinology - [facility] [address] [place] [address] Wilder Zaidi, DO 62 [facility] [address] [place] [address] documented as of this encounter Visit Diagnoses Not on filedocumented in this encounter Care Teams Hand Stapler Relationship Specialty Start Date End Date Akil Serrano MD [address] [place] [address] PCP - General 02/21/10 04/16/11 documented as of this encounter
--- OUTSIDE RECORDS SUMMARY | 2024-08-06 01:01 | XMS_ITS | Encounter Summary ---
Author Organization [facility] Address [address] [place] [address] Care Team Providers Care Swing Driver Name Role Phone Akil Serrano MD Primary Care Provider [phone] Reason for Visit * Reason Comments Hypogonadism Encounter Details Date Type Department Care Team (Latest Contact Info) Description 06/14/2010 13:00 EST Office Visit [facility] Endocrinology - [facility] [address] [place] [phone] Wilder Zaidi, DO 62 [facility] [address] [place] [address] Panhypopituitarism (HCC-CMS) (Primary Dx) Social [...] Miguel Angel Burgos, in consultation in the [facility] adult endocrinology clinic today 06/14/2010 for further evaluation and management 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 I had the pleasure of meeting Mr. Burgos and his sister as well as his caretakers from the [facility] at the pediatric endocrine transition clinic with Dr. Edwards, on 02/21/2010. Please see that note for full details. Dr. Edwards did have a follow-up visit on 02/28/2010 with Miguel Angel's caregivers, as well as Bettina and his nurse from the [facility], Radha Conteh. Today both his caretakers [...] is applied oncea day by his male carbide operator using gloves. They use of pump at [...] He currently lives with his caretakers in [place], [place], and has the services as described [...] compounded DDAVP delivered from our pharmacy at [facility]. Will speak briefly with Dr. [...] being.We will consider further therapy once his carbide operator has been established. Plan: 1. Will address [...] - DSP Job ID: SM Doc ID: [id number] Ext Doc ID: [id number] cc: MD Akil Marsh MD Paul James Zimakas, MD documented in this encounter Plan of Treatment Upcoming Encounters Date Type Department Care Team (Late st Contact Info) Description 10/01/2024 13:40 EDT Office Visit [facility] Endocrinology - [facility] [address] [place], [place] [phone] Wilder Zaidi DO 62 [facility] [address] [place] [address] documented as of this encounter Visit Diagnoses Diagnosis Panhypopituitarism ([facility])- Primary Panhypopituitarism documented in this encounter Care Teams Swing Driver Relationship Specialty Start Date End Date Akil Serrano MD [address] [facility] [place] [address] PCP - General 02/21/10 04/16/11 documented as of this encounter
--- OUTSIDE RECORDS SUMMARY | 2024-08-06 01:01 | XMS_ITS | Encounter Summary ---
Author Organization [facility] [place] [facility] Address [address] [place] [address] Care Team Providers Care Spotter Name Role Phone Akil Serrano MD Primary Care Provider [phone] Reason for Visit * Reason Onset Date Comments Medication Management 06/20/2010 Bettina hankins ld like call back regarding medication change. Encounter Details Date Type Department Care Team (Late Contact Info) Description 06/20/2010 Telephone [facility] Endocrinology - [facility] [address] [place] [address] Wilder Zaidi DO 62 [facility] [address] [place] [address] Medication Management (Bettina would like [...] [facility] - [place] [address] [facility] [address] [place], [place] [phone] Wilder Zaidi, 62 [facility] [address] [place] [address] documented as of this encounter Visit Diagnoses Not on filedocumented in this encounter Care Teams Spotter Relationship Specialty Start Date End Date Akil Serrano MD [address] [place] [address] PCP - General 02/21/10 04/16/11 documented as of this encounter
--- OUTSIDE RECORDS SUMMARY | 2024-08-06 01:01 | XMS_ITS | Encounter Summary ---
Author Organization [facility] Address [address] [place] [address] Care Team Providers Care Dean Of Girls Name Role Phone Yan Demarco MD Primary Care Provider [phone] Encounter Details Date Type Department Care Team (Late st Contact Info) Description 10/04/2009 12:00 EDT - 10/04/2009 23:59 EDT Hospital Encounter [facility] [address] [place] [address] [facility] [address] [place] [phone] Discharge Disposition: Home or Self Care Social [...] Description 10/01/2024 13:40 EDT Office Visit [facility] Endocrinology - [facility] [address] [place], [place] [phone] Wilder Zaidi, DO 62 [facility] [address] [place] [phone] documented as of this encounter Procedures Procedure Name Priority Date/Time Associated Diagnosis Comments T4 FREE Routine 10/04/2009 12:42 EDT SODIUM Routine 10/04/2009 12:42 EDT documented in this encounter Results * SODIUM (10/04/2009 12:42 EDT) Sodium 140 136 - 145 mEq/L [facility] Blood specimen (specimen) 10/04/2009 12:42 EDT 10/04/2009 12:43 EDT Skyler Edwards [facility] CHEMISTRY & BL OOD GAS ORDERABLES Final Result Performing Organization Address City/[facility] Co de Phone Number [facility] [address] [place] [address] * T4 FREE (10/04/2009 12:42 EDT) Free T4 1.4 0.8 - 1.8 ng/dL [facility] Blood specimen (specimen) 10/04/2009 12:42 EDT 10/04/2009 12:43 EDT Skyler Edwards [facility] CHEMISTRY & BL OOD GAS ORDERABLES Final Result Performing Organization Address [facility] Co de Phone Number [facility] [address] [place] [address] documented in this encounter Visit Diagnoses Not on filedocumented in this encounter Care Teams Dean Of Girls Relationship Specialty Start Date End Date Yan Demarco MD [address] [place] [address] PCP - General 08/22/09 02/20/10 documented as of this encounter
--- OUTSIDE RECORDS SUMMARY | 2024-08-06 01:01 | XMS_ITS | Encounter Summary ---
Author Organization [facility] Address [address] [place] [address] Care Team Providers Care Welcome Wagon Hostess Name Role Phone Akil Serrano MD Primary Care Provider [phone] Encounter Details Date Type Department Care Team (Late st Contact Info) Description 05/23/2010 Abstract [facility] Endocrinology - [address] [address] Wilder Zaidi DO [address] [place] [address] [place] [address] Social History Tobacco Use Types Packs/Day [...] Visit [facility] Endocrinology [address] [address] Wilder Zaidi DO [address] [place] [phone] documented as of this encounter Visit [...] 0 added in this encounter Care Teams Welcome Wagon Hostess Relationship Specialty Start Date End Date Akil Serrano MD [address] [facility] [place] [address] PCP - General 02/21/10 04/16/11 documented as of this encounter
--- OUTSIDE RECORDS SUMMARY | 2024-08-06 01:01 | XMS_ITS | Encounter Summary ---
Author Organization [facility] Address [address] [place] [address] Care Team Providers Care Explosive Operator Grenade Name Role Phone Corin Skinner MD Primary Care Provider [phone] Encounter Details Date Type Department Care Team (Latest Contact Info) Description 04/13/2009 11:12 EDT - 04/13/2009 23:[address] [facility] [address] [place] [address] Maxine Felix, SUPERVISOR COVERING AND LINING Discharge Disposition: Home or Self Care Social [...] EDT Office Visit [facility] Endocrinology - [facility] [address] [place] [address] Wilder Zaidi, [address] [facility] [address] [place] [address] documented as of this encounter Procedures Procedure Name Priority Date/Time Associated Diagnosis Comments OSMOLALITY Routine 04/13/2009 11:41 EDT T4 FREE Routine 04/13/2009 11:41 EDT CORTISOL Routine 04/13/2009 11:41 EDT BASIC METABOLIC PANEL (BMP) Routine 04/13/2009 11:41 EDT documented in this encounter Results * (ABNORMAL) BASIC METABOLIC PANEL (04/13/2009 11:41 EDT) Sodium 132(L) 136 - 145 mEq/L [facility] Potassium 4.4 3.5 - 5.0 mEq/L [...] OR DERABLES Final Result Performing Organization Address City/State/[facility] Co de Phone Number [facility] [address] [place] [address] * T4 FREE (04/13/2009 11:41 EDT) Free T4 1.6 0.8 - 1.8 ng/dL [facility] Blood specimen (specimen) 04/13/2009 11:41 EDT 04/13/2009 11:43 EDT Maxine Felix APRN CHEMISTRY & BLOOD GAS OR DERABLES Final Result Performing Organization Address City/[facility] de Phone Number [facility] [address] [place] [address] * (ABNORMAL) OSMOLALITY (04/13/2009 11:41 EDT) Osmolality Cintia 273(L) 280 - 300 MOS/KG [facility] Blood specimen (specimen) 04/13/2009 11:41 EDT 04/13/2009 11:43 EDT Maxine Ugarte Isidro SUPERVISOR COVERING AND LINING CHEMISTRY & BLOOD GAS OR DERABLES Final Result Performing Organization Address [facility] de Phone Number [facility] [address] [place] [address] * CORTISOL (04/13/2009 11:41 EDT) Pathologist [facility] Cortisol 25 ug/dl [facility] Comment: 7-9a.m.=4.3-22.4 3-5p.m.=3.1-16.7 Blood specimen (specimen) 04/13/2009 11:41 EDT 04/13/2009 11:43 EDT Maxine Felix SUPERVISOR COVERING AND LINING CHEMISTRY & BLOOD GAS OR DERABLES Final Result Performing Organization Address [facility] de Phone Number [facility] [address] [place] [address] documented in this encounter Visit Diagnoses Not on filedocumented in this encounter Care Teams Explosive Operator Grenade Relationship Specialty Start Date End Date Corin Skinner MD [address] [place] [phone] PCP - General 10/24/08 2 documented as of this encounter
--- OUTSIDE RECORDS SUMMARY | 2024-08-06 01:01 | XMS_ITS | Encounter Summary ---
Author Organization [facility] Address [address] [place] [address] Care Team Providers Care Slaughterer Religious Ritual Name Role Phone Corin Skinner MD Primary Care Provider Encounter Details Date Type Department Care Team (Late st Contact Info) Description 12/07/2008 11:45 EDT - 12/07/2008 23:59 EDT Hospital Encounter [facility] [address] [place] [address] [facility] [address] [place] [phone] Discharge Disposition: Home or Self Care Social [...] EDT Office Visit [facility] Endocrinology - [facility] [address] [place] [address] Wilder Zaidi, DO [address] [facility] [address] [place] [phone] documented as of this encounter Procedures Procedure Name Priority Date/Time Associated Diagnosis Comments T4 FREE Routine 12/07/2008 12:01 EDT BASIC METABOLIC PANEL (BMP) Routine 12/07/2008 12:01 EDT documented in this encounter Results * T4 FREE (12/07/2008 12:01 EDT) Free T4 1.6 0.8 - 1.8 ng/dL [facility] Blood specimen (specimen) 12/07/2008 12:01 EDT 12/07/2008 12:03 EDT Skyler Edwards [facility] CHEMISTRY & BL OOD GAS ORDERABLES Final Result Performing Organization Address [facility] Co de Phone Number [facility] [address] [place] [address] * (ABNORMAL) BASIC METABOLIC PANEL (12/07/2008 12:01 [...] 12:01 EDT 12/07/2008 12:03 EDT Skyler Edwards [facility] CHEMISTRY & BL OOD GAS ORDERABLES Final Result [facility] [address] [place] [address] documented in this encounter Visit Diagnoses Not on filedocumented in this encounter Care Teams Slaughterer Religious Ritual Relationship Specialty Start Date End Date Corin Skinner MD [address] [place] [phone] PCP - General 10/24/08 08/21/09 documented as of this encounter
--- OUTSIDE RECORDS SUMMARY | 2024-08-06 01:01 | XMS_ITS | Encounter Summary ---
Author Organization [facility] Address [address] [place] [address] Care Team Providers Care Cannoneer Name Role Phone Akil Serrano MD Primary Care Provider Encounter Details Date Type Department Care Team (Late st Contact Info) Description 07/03/2010 Results Only Imaging [facility]- PRISM [phone] Akil Serrano MD [address] [facility] [place], [place] [address] Social History Tobacco Use Types Packs/Day Years [...] Visit [facility] Endocrinology - [facility] [address] [place] [address] Wilder Zaidi, 62 [facility] [address] [place] [address] documented as of this encounter Visit Diagnoses Not on filedocumented in this encounter Care Teams Cannoneer Relationship Specialty Start Date End Date Akil Serrano MD [address] [place] [address] PCP - General 02/21/10 04/16/11 documented as of this encounter
--- OUTSIDE RECORDS SUMMARY | 2024-08-06 01:01 | XMS_ITS | Encounter Summary ---
Author Organization [facility] Address [address] [place] [address] Care Team Providers Care Director Of Cardiac Cath Lab Name Role Phone Akil Serrano MD Primary Care Provider [phone] Encounter Details Date Type Department Care Team (Late st Contact Info) Description 04/10/2010 Results Only [facility]- [facility] [phone] Akil Serrano MD [address] [facility] [place], [place] [phone] Social History Tobacco Use Types Packs/Day Years [...] Office Visit [facility] Endocrinology - [facility] [address] [place], [place] [phone] Wilder Zaidi, [address] [facility] [address] [place] [address] documented as of this encounter Visit Diagnoses Not on filedocumented in this encounter Care Teams Director Of Cardiac Cath Lab Relationship Specialty Start Date End Date Akil Serrano MD [address] [place], [place] [address] PCP - General 02/21/10 04/16/11 documented as of this encounter
--- OUTSIDE RECORDS SUMMARY | 2024-08-06 01:01 | XMS_ITS | Encounter Summary ---
Author Organization [facility] Address [address] [place] [address] Care Team Providers Care Welder Railcar Mechanic Name Role Phone Akil Serrano MD Primary Care Provider [phone] Encounter Details Date Type Department Care Team (Late st Contact Info) Description 02/21/2010 Results Only [facility] - [facility] [address] [place], [place] [address] [facility] [address] [place] [phone] Social History Tobacco Use Types Packs/Day Years [...] Description 10/01/2024 13:[address] [facility] Endocrinology - [facility] [address] [place] [address] Wilder Zaidi DO [address] [facility] [address] [place] [address] documented as of this encounter [...] LAB ALT 42 21 - 72 U/L [facility] Albumin 4.4 3.4 - 4.9 [...] 12:28 EDT 02/21/2010 12:30 EDT Skyler Edwards [facility] CHEMISTRY & BL OOD GAS ORDERABLES Final Result [facility] [address] [place] [address] * (ABNORMAL) TESTOSTERONE (02/21/2010 12:28 EDT) Testosterone, Total <10(L) 241 - 827 ng/dL [facility] Comment:Sample retested, res ult confirmed Blood specimen (specimen) 02/21/2010 12:28 EDT 02/21/2010 12:30 EDT Skyler Edwards [facility] CHEMISTRY & BL OOD GAS ORDERABLES Final Result Performing Organization Address [facility] de Phone Number [facility] [address] [place] [address] * T4 FREE (02/21/2010 12:28 EDT) Free T4 1.3 0.8 - 1.8 ng/dL [facility] Blood specimen (specimen) 02/21/2010 12:28 EDT 02/21/2010 12:30 EDT Skyler Edwards [facility] CHEMISTRY & BL OOD GAS ORDERABLES Final Result Performing Organization Address [facility] de Phone Number [address] [address] documented in this encounter Visit Diagnoses Not on filedocumented in this encounter Care Teams Welder Railcar Mechanic Relationship Specialty Start Date End Date Akil Serrano MD [address] [facility] [place] [address] PCP - General 02/21/10 04/16/11 documented as of this encounter
--- OUTSIDE RECORDS SUMMARY | 2024-08-06 01:01 | XMS_ITS | Encounter Summary ---
Author Organization [facility] Address [address] [place] [address] Care Team Providers Care Referral Nurse Name Role Phone Akil Serrano MD Primary Care Provider Encounter Details Date Type Department Care Team (Late st Contact Info) Description 02/21/2010 11:47 EDT - 02/21/2010 23:59 EDT Hospital Encounter [facility] [address] [place] [address] [facility] [address] [place] [phone] Discharge Disposition: Home or Self Care Social [...] Office Visit [facility] Endocrinology - [facility] [address] [place] [address] Wilder Zaidi, DO [address] [facility] [address] [place] [phone] documented as of this encounter Visit Diagnoses Not on filedocumented in this encounter Care Teams Referral Nurse Relationship Specialty Start Date End Date Akil Serrano MD [address] [facility] [address] [place] [address] PCP - General 02/21/10 04/16/11 documented as of this encounter
--- OUTSIDE RECORDS SUMMARY | 2024-08-06 01:02 | XMS_ITS | Encounter Summary ---
Author Organization [facility] Address [address] [place] [address] Care Team Providers Care Service Secretary Name Role Phone Corin Skinner MD Primary Care Provider [phone] Encounter Details Date Type Department Care Team (Late st Contact Info) Description 10/21/2008 Before PRISM Converted Visit ([facility]le) [facility] - [facility] conversion [address] [place], [place] [address] Christopher Ga MD [address] [place] [phone] Social History Tobacco Use Types Packs/Day [...] Office Visit [facility] Endocrinology - [facility] [address] [place] [address] Wilder Zaidi DO [address] [facility] [address] [place] [address] documented as of this encounter Procedures Procedure Name Priority Date/Time Associated Diagnosis Comments FIBRINOGEN Routine 10/21/2008 21:00 EDT documented in this encounter Results * (ABNORMAL) FIBRINOGEN (10/21/2008 21:00 EDT) Fibrinogen 425(H) 220 - 410 mg/dl [facility] 10/21/2008 21:0 0 EDT 10/21/2008 21:17 EDT us Christopher Ga MD HEMATOLOGY & PF4 ORDERABLES Final Result Performing Organization Address City/State/[facility] Co de Phone Number [facility] [address] [place] [address] documented in this encounter Visit Diagnoses Not on filedocumented in this encounter Care Teams Service Secretary Relationship Specialty Start Date End Date Corin Skinner MD [address] [place] [phone] PCP - General 10/24/08 08/21/09 documented as of this encounter
--- OUTSIDE RECORDS SUMMARY | 2024-08-06 01:02 | XMS_ITS | Encounter Summary ---
Author Organization [facility] Address [address] [place] [address] Care Team Providers Care Orchid Superintendent Name Role Phone Corin Skinner MD Primary Care Provider [phone] Encounter Details Date Type Department Care Team (Late st Contact Info) Description 10/21/2008 Before PRISM Converted Visit (Maple) [facility] - [place] conversion [address] [place] [address] Emergency, MD Diya Social History Tobacco Use [...] 13:40 EDT Office Visit [facility] Endocrinology - [facility] [address] [place] [address] Wilder Zaidi, DO [address] [facility] [address] [place] [address] documented as of this encounter [...] ORDER LYNDSEY Final Result Performing Organization Address City/State/[facility] Co de Phone Number [facility] [address] [place] [address] documented in this encounter Visit Diagnoses Not on filedocumented in this encounter Care Teams Orchid Superintendent Relationship Specialty Start Date End Date Corin Skinner MD [address] [place] [phone] PCP - General 10/24/08 08/21/09 documented as of this encounter
--- OUTSIDE RECORDS SUMMARY | 2024-08-06 01:02 | XMS_ITS | Encounter Summary ---
Author Organization [facility] Address [address] [place] [address] Care Team Providers Care Director Hardware Name Role Phone Corin Skinner MD Primary Care Provider Encounter Details Date Type Department Care Team (Late st Contact Info) Description 10/21/2008 Before PRISM Converted Visit (Maple) [facility] - Maple conversion [address] [place], [place] [address] Christopher Ga MD [address] [place] [phone] Social History Tobacco Use Types Packs/Day [...] [facility] Endocrinology - [facility] [address] [place] [address] Wilder Zaidi DO [address] [facility] [address] [place] [address] documented as of this encounter [...] PF4 ORDERABLES Final Result Performing Organization Address City/State/[facility] Co de Phone Number [facility] [address] [place] [address] documented in this encounter Visit Diagnoses Not on filedocumented in this encounter Care Teams Director Hardware Relationship Specialty Start Date End Date Corin Skinner MD [address] [place] [phone] PCP - General 10/24/08 08/21/09 documented as of this encounter
--- OUTSIDE RECORDS SUMMARY | 2024-08-06 01:02 | XMS_ITS | Encounter Summary ---
Author Organization [facility] Address [address] [place] [address] Care Team Providers Care Senior Infrastructure Engineer Name Role Phone Corin Skinner MD Primary Care Provider [phone] Encounter Details Date Type Department Care Team (Late st Contact Info) Description 10/21/2008 Before PRISM Converted Visit (Maple) [facility] - Maple conversion [address] [place] [address] Emergency, MD Diya Social History Tobacco Use [...] Office Visit [facility] Endocrinology - [facility] [address] [place] [address] Wilder Zaidi, DO [address] [facility] [address] [place] [address] documented as of this encounter Procedures Procedure Name Priority Date/Time Associated Diagnosis Comments TSH Routine 10/21/2008 17:54 EDT documented in this encounter Results * (ABNORMAL) TSH (10/21/2008 17:54 EDT) TSH <0.02(L) 0.35 - 5.00 uIU/ml [facility] 10/21/2008 17:5 4 EDT 10/21/2008 17:54 EDT us Default Emergency MD CHEMISTRY & BLOOD GAS ORDER LYNDSEY Final Result Performing Organization Address City/State/[facility] Co de Phone Number [facility] [address] [place] [address] documented in this encounter Visit Diagnoses Not on filedocumented in this encounter Care Teams Senior Infrastructure Engineer Relationship Specialty Start Date End Date Corin Skinner MD [address] [place] [phone] PCP - General 10/24/08 08/21/09 documented as of this encounter
--- OUTSIDE RECORDS SUMMARY | 2024-08-06 01:02 | XMS_ITS | Encounter Summary ---
Author Organization [facility] Address [address] [place] [address] Care Team Providers Care Lavender Farm Worker Name Role Phone Corin Skinner MD Primary Care Provider [phone] Encounter Details Date Type Department Care Team (Late st Contact Info) Description 10/21/2008 Before PRISM Converted Visit (Maple) [facility] - Maple conversion [address] [place], [place] [address] Christopher Ga MD [address] [place] [phone] Social History Tobacco Use Types Packs/Day [...] Visit [facility] Endocrinology - [facility] [address] [place] [address] Wilder Zaidi DO [address] [facility] [address] [place] [address] documented as [...] LYNDSEY Final Result [facility] [address] [place] [address] documented in this encounter Visit Diagnoses Not on filedocumented in this encounter Care Teams Lavender Farm Worker Relationship Specialty Start Date End Date Corin Skinner MD [address] [place] [phone] PCP - General 10/24/08 08/21/09 documented as of this encounter
--- OUTSIDE RECORDS SUMMARY | 2024-08-06 01:02 | XMS_ITS | Encounter Summary ---
Author Organization [facility] Address [address] [place] [address] Care Team Providers Care Pipe Production Worker Name Role Phone Corin Skinner MD Primary Care Provider [phone] Encounter Details Date Type Department Care Team (Late st Contact Info) Description 10/21/2008 Before PRISM Converted Visit (Maple) [facility] - [place] conversion [address] [place] [address] Emergency, MD Diya Social History Tobacco Use [...] EDT Office Visit [facility] Endocrinology - [facility] [address] [place] [address] Wilder Zaidi, DO [address] [facility] [address] [place] [address] documented as of this encounter [...] LYNDSEY Final Result [facility] [address] [place] [address] documented in this encounter Visit Diagnoses Not on filedocumented in this encounter Care Teams Pipe Production Worker Relationship Specialty Start Date End Date Corin Skinner MD [address] [place] [phone] PCP - General 10/24/08 08/21/09 documented as of this encounter
--- OUTSIDE RECORDS SUMMARY | 2024-08-06 01:02 | XMS_ITS | Encounter Summary ---
Author Organization [facility] Address [address] [place] [address] Care Team Providers Care Waste Machine Tender Name Role Phone Corin Skinner MD Primary Care Provider [phone] Encounter Details Date Type Department Care Team (Late st Contact Info) Description 10/21/2008 Before PRISM Converted Visit (Maple) [facility] - Maple conversion [address] [place], [place] [address] Christopher Ga MD [address] [place] [phone] Social History Tobacco Use Types Packs/Day [...] Office Visit [facility] Endocrinology - [facility] [address] [place] [address] Wilder Zaidi DO [address] [facility] [address] [place] [address] documented as of this encounter Procedures Procedure Name Priority Date/Time Associated Diagnosis Comments SODIUM, URINE RANDOM Routine 10/21/2008 21:00 EDT documented in this encounter Results * SODIUM, URINE RANDOM (10/21/2008 21:00 EDT) Sodium, Ur <5.0 mEq/L [facility] 10/21/2008 21:0 0 EDT 10/21/2008 21:16 EDT us Christopher Ga MD URINALYSIS ORDERABLES Final Result Performing Organization Address City/State/[facility] Co de Phone Number [facility] [address] [place] [address] documented in this encounter Visit Diagnoses Not on filedocumented in this encounter Care Teams Waste Machine Tender Relationship Specialty Start Date End Date Corin Skinner MD [address] [place] [phone] PCP - General 10/24/08 08/21/09 documented as of this encounter
--- OUTSIDE RECORDS SUMMARY | 2024-08-06 01:02 | XMS_ITS | Encounter Summary ---
Author Organization [facility] Address [address] [place] [address] Care Team Providers Care Insurance Claim Approver Name Role Phone Corin Skinner MD Primary Care Provider Encounter Details Date Type Department Care Team (Late st Contact Info) Description 10/21/2008 Before PRISM Converted Visit (Maple) [facility] - Maple conversion [address] [place], [place] [address] Christopher Ga MD [address] [place] [phone] Social History Tobacco Use Types Packs/Day [...] Visit [facility] Endocrinology - [facility] [address] [place] [address] Wilder Zaidi DO 62 [facility] [address] [place] [address] documented as of this encounter Procedures Procedure Name Priority Date/Time Associated Diagnosis Comments GLUCOSE, GLUCOMETER Routine 10/21/2008 2 1:18 EDT documented in this encounter Results * GLUCOSE, GLUCOMETER (10/21/2008 21:18 EDT) Glucose, Fingerstick 95 70 - 100 mg/dl [facility] [place] [id number] Test Performed by Nursing Services [facility] 10/21/2008 21:1 8 EDT 10/21/2008 23:29 EDT us Christopher Ga MD CHEMISTRY & BLOOD GAS ORDER LYNDSEY Final Result [facility] [address] [place] [address] documented in this encounter Visit Diagnoses Not on filedocumented in this encounter Care Teams Insurance Claim Approver Relationship Specialty Start Date End Date Corin Skinner MD [address] [place] [phone] PCP - General 10/24/08 08/21/09 documented as of this encounter
--- OUTSIDE RECORDS SUMMARY | 2024-08-06 01:02 | XMS_ITS | Encounter Summary ---
Author Organization [facility] Address [address] [place] [address] Care Team Providers Care Lead Vulcanizing Operator Name Role Phone Unavailable Primary Care Provider Unavailabl e Encounter Details Date Type Department Care Team (Late st Contact Info) Description 07/12/2008 10:23 EST - 07/12/2008 11:59 EST Hospital Encounter [facility] [address] [place] [address] [facility] [address] [place] [address] Discharge Disposition: Auto Discharge Social History Tobacco [...] Rehabilitation Endocrinology - [facility] [address] [place] [address] Wilder Zaidi, DO [address] [facility] [address] [place] [address] Pending Results Name Type Priority [...] PHONE RESULT Final Result Performing Organization Address [facility] Co de Phone Number [facility] [address] [place] [address] * HOLD PURPLE TOP (10/21/2008 17:54 EDT) Hold Purple Top EDTA for hematology will be discarded after 48 hours, differential not available after 12 hours. [facility] 10/21/2008 17:5 4 EDT 10/21/2008 17:54 EDT us Default Emergency MD LAB INFO SERVICE AND SUPPOR T & PHONE RESULT Final Result Performing Organization Address [facility] Co de Phone Number [facility] [address] [place] [address] * HOLD GREEN TOP (10/21/2008 17:54 EDT) Hold Green Top Hold for further testing. Specimen will be held for 5 days. [facility] 10/21/2008 17:5 4 EDT 10/21/2008 17:54 EDT us Default Emergency MD LAB INFO SERVICE AND SUPPOR T & PHONE RESULT Final Result Performing Organization Address [facility] Co de Phone Number [facility] [address] [place] [address] * HOLD BLUE TOP (10/21/2008 17:54 EDT) Hold Blue Top Sample for coagulation will be discarded after 4 hours [facility] 10/21/2008 17:5 4 EDT 10/21/2008 17:54 EDT us Default Emergency MD LAB INFO SERVICE AND SUPPOR T & PHONE RESULT Final Result Performing Organization Address [facility] de Phone Number [facility] [address] [place] [address] * HOLD GREEN TOP (08/13/2008 11:13 EST) Hold Green Top Hold for further testing. Specimen will be held for 5 days. [facility] 08/13/2008 11:1 3 EST 08/13/2008 12:58 EST us Default Emergency MD LAB INFO SERVICE AND SUPPOR T & PHONE RESULT Final Result Performing Organization Address [facility] de Phone Number [facility] [address] [place] [address] * HOLD BLUE TOP (08/13/2008 11:13 EST) Hold Blue Top Sample for coagulation will be discarded after 4 hours [facility] 08/13/2008 11:1 3 EST 08/13/2008 12:58 EST us Default Emergency MD LAB INFO SERVICE AND SUPPOR T & PHONE RESULT Final Result Performing Organization Address [facility] de Phone Number [facility] [address] [place] [address] * PHOSPHORUS (08/13/2008 11:13 EST) Phosphorus 4.4 2.5 - 4.5 mg/dl [facility] 08/13/2008 11:1 3 EST 08/13/2008 12:58 EST us Default Emergency MD CHEMISTRY & BLOOD GAS ORDER LYNDSEY Final Result Performing Organization Address [facility] de Phone Number [facility] [address] [place] [address] * MAGNESIUM (08/13/2008 11:13 EST) Magnesium 1.8 1.7 - 2.8 mg/dl [facility] 08/13/2008 11:1 3 EST 08/13/2008 12:58 EST us Default Emergency MD CHEMISTRY & BLOOD GAS ORDER LYNDSEY Final Result Performing Organization Address [facility] Phone Number [facility] [address] [place] [address] * LIPASE (08/13/2008 11:13 EST) Lipase 97 0 - 250 U/L [facility] 08/13/2008 11:1 3 EST 08/13/2008 12:58 EST us Default Emergency MD CHEMISTRY & BLOOD GAS ORDER LYNDSEY Final Result Performing Organization Address [facility] Phone Number [facility] [address] [place] [address] * (ABNORMAL) SCREENING GLUCOSE (08/13/2008 11:13 EST) Glucose, Screening 68(L) 70 - 100 mg/dl [facility] 08/13/2008 11:1 3 EST 08/13/2008 12:58 EST us Default Emergency MD CHEMISTRY & BLOOD GAS ORDER LYNDSEY Final Result Performing Organization Address [facility] Phone Number [facility] [address] [place] [address] * CREATININE (08/13/2008 11:13 EST) Creatinine 0.90 0.7 - 1.5 mg/dl [facility] GFR, Calculated >60 ml/min/1.7 3m2 [facility] 08/13/2008 11:1 3 EST 08/13/2008 12:58 EST us Default Emergency MD CHEMISTRY & BLOOD GAS ORDER LYNDSEY Final Result Performing Organization Address [facility] Phone Number [facility] [address] [place] [address] * BUN (08/13/2008 11:13 EST) BUN 17 10 - 26 mg/dl [facility] 08/13/2008 11:1 3 EST 08/13/2008 12:58 EST us Default Emergency MD CHEMISTRY & BLOOD GAS ORDER LYNDSEY Final Result Performing Organization Address [facility] de Phone Number [facility] [address] [place] [address] * CALCIUM (08/13/2008 11:13 EST) Calcium 9.5 8.5 - 10.5 mg/dl [facility] Calculated Calcium 9.3 8.5 - 10.5 mg/dl [facility] 08/13/2008 11:1 3 EST 08/13/2008 12:58 EST us Default Emergency MD CHEMISTRY & BLOOD GAS ORDER LYNDSEY Final Result Performing Organization Address [facility] de Phone Number [facility] [address] [place] [address] * LIVER FUNCTION TESTS (08/13/2008 11:13 EST) [...] Final Result Performing Organization Address [facility] Co de Phone Number [facility] [address] [place] [address] * (ABNORMAL) ELECTROLYTES (08/13/2008 11:13 EST) Pathologist [facility] Sodium 153(H) 136 - 145 mEq/L [facility] Potassium 4.3 3.5 - 5.0 mEq/L [facility] Chloride 113(H) 96 - 110 mEq/L [facility] CO2 26 24 - 32 mEq/L [facility] 08/13/2008 11:1 3 EST 08/13/2008 12:58 EST [facility] Emergency MD CHEMISTRY & BLOOD GAS ORDER LYNDSEY Final Result Performing Organization Address [facility] de Phone Number [facility] [address] [place] [address] * (ABNORMAL) HEMAGRAM AND DIFFERENTIAL (08/13/2008 11:13 EST) [facility] WBC 2.32(L) 4.0 - 10.4 K/cmm [...] Final Result Performing Organization Address [facility] Co de Phone Number [facility] [address] [place] [address] * (ABNORMAL) TESTOSTERONE (07/12/2008 10:44 EST) Testosterone, Total 28(L) 241 - 827 ng/dL [facility] 07/12/2008 10:4 4 EST 07/12/2008 11:37 EST Skyler Edwards [facility] CHEMISTRY & BL OOD GAS ORDERABLES Final Result Performing Organization Address [facility] Co de Phone Number [facility] [address] [place] [address] * T4 FREE (07/12/2008 10:44 EST) Free T4 1.7 0.8 - 1.8 ng/dL [facility] 07/12/2008 10:4 4 EST 07/12/2008 11:37 EST Skyler Edwards [facility] CHEMISTRY & BL OOD GAS ORDERABLES Final Result Performing Organization Address [facility] Co de Phone Number [facility] [address] [place] [address] * BASIC METABOLIC PANEL (07/12/2008 10:44 EST) [...] 4 EST 07/12/2008 11:37 EST Skyler Edwards [facility] CHEMISTRY & BL OOD GAS ORDERABLES Final Result Performing Organization Address City/[facility] Co de Phone Number [facility] [address] [place] [address] documented in this encounter Visit Diagnoses Not on filedocumented in this encounter
--- OUTSIDE RECORDS SUMMARY | 2024-08-06 01:02 | XMS_ITS | Encounter Summary ---
Author Organization [facility] Address [address] [place] [address] Care Team Providers Care Forger Helper Name Role Phone Corin Skinner MD Primary Care Provider Encounter Details Date Type Department Care Team (Late st Contact Info) Description 08/13/2008 Office Visit [facility] - Maple conversion [address] [place] [address] Slava Pineda MD Social History Tobacco Use [...] Addenda for MIGUEL ANGEL BURGOS JR VisitID: [id number] Date: 08/13/2008 08/13/2008 10:30 Dr. Amaro refers [...] grand mal seizure. ). No fever. Treatment DIE FILER: None. PAST HX: (traumatic brain injury, seizures). [...] 5 mL normal saline; (right FA by SLIP OPERATOR, rainbow to lab (first attempt unsuccessful by SLIP OPERATOR in right AC)). --1259 Nyasia Morelos R.N., HAR[place] IV bag #1 of 500 mL NS; rate = wide open. --1441 Rachel Reynolds R.N., [place] IV fluids discontinued. IV bag #1. INTAKE: 500 mL. --1545 Lucille Carlson R.N.. DISPOSITION / DISCHARGE Report was given (Latrice ROMERO). Transported via stretcher by [facility] with IV. Admitted to pediatrics. [...] Visit [facility] Endocrinology - [facility] [address] [place], [place] [id number] Wilder Zaidi, [address] [facility] [address] [place] [address] documented as of this encounter Visit Diagnoses Not on filedocumented in this encounter Care Teams Forger Helper Relationship Specialty Start Date End Date Corin Skinner MD [address] [place] [phone] PCP - General 10/24/08 08/21/09 documented as of this encounter
--- OUTSIDE RECORDS SUMMARY | 2024-08-06 01:02 | XMS_ITS | Encounter Summary ---
Author Organization [facility] Address [address] [place] [address] Care Team Providers Care Carving Machine Operator Name Role Phone Corin Skinner MD Primary Care Provider [phone] Encounter Details Date Type Department Care Team (Late st Contact Info) Description 07/11/2008 Before PRISM Converted Visit (Maple) [facility] - Maple conversion [address] [place] [address] Lc Cheng MD [address] [facility], [address] [place] [address] Social History Tobacco Use Types [...] Edwards MD [facility] [address] [place] [address] Edwards; The father of 18-year-old [...] Lc Cheng MD - [facility] Job ID: [id number] Doc ID: [id number] cc: MD Skyler Singh MD documented in this encounter Plan of Treatment Upcoming Encounters Date Type Department Care Team (Late st Contact Info) Description 10/01/2024 13:40 EDT Office Visit [facility] Endocrinology - [facility] [address] [place] [address] Wilder Zaidi, DO [address] [facility] [address] [place] [address] documented as of this encounter Visit Diagnoses Not on filedocumented in this encounter Care Teams Carving Machine Operator Relationship Specialty Start Date End Date Corin Skinner MD [address] [place] [phone] PCP - General 10/24/08 08/21/09 documented as of this encounter
--- OUTSIDE RECORDS SUMMARY | 2024-08-06 01:02 | XMS_ITS | Encounter Summary ---
Author Organization [facility] Address [address] [place] [address] Care Team Providers Care Range Aid Name Role Phone Corin Skinner MD Primary Care Provider Encounter Details Date Type Department Care Team (Late st Contact Info) Description 10/21/2008 Before PRISM Converted Visit (Maple) [facility] - Maple conversion [address] [place], [place] [address] Christopher Ga MD [address] [place] [phone] Social History Tobacco Use Types Packs/Day [...] [facility] Endocrinology - [facility] [address] [place] [address] Wilder Zaidi DO [address] [facility] [address] [place] [address] documented as of this encounter Procedures Procedure Name Priority Date/Time Associated Diagnosis Comments PHOSPHORUS Routine 10/21/2008 21:00 EDT documented in this encounter Results * PHOSPHORUS (10/21/2008 21:00 EDT) Phosphorus 3.6 2.5 - 4.5 mg/dl [facility] 10/21/2008 21:0 0 EDT 10/21/2008 21:17 EDT us Christopher Ga MD CHEMISTRY & BLOOD GAS ORDER LYNDSEY Final Result Performing Organization Address City/State/[facility] Co de Phone Number [facility] [address] [place] [address] documented in this encounter Visit Diagnoses Not on filedocumented in this encounter Care Teams Range Aid Relationship Specialty Start Date End Date Corin Skinner MD [address] [place] [phone] PCP - General 10/24/08 08/21/09 documented as of this encounter
--- OUTSIDE RECORDS SUMMARY | 2024-08-06 01:02 | XMS_ITS | Encounter Summary ---
Author Organization [facility] Address [address] [place] [address] Care Team Providers Care Cargo Supervisor Name Role Phone Corin Skinner MD Primary Care Provider Encounter Details Date Type Department Care Team (Late st Contact Info) Description 10/21/2008 17:35 EDT - 11/04/2008 11:59 EDT Hospital Encounter [facility] [address] [place] [address] Christopher Ga MD [address] [place] [address] Jacqueline Early MD [address] [address] Slava Pineda MD Discharge Disposition: [...] OF PRESENT ILLNESS Miguel Angel is an 51-syqd-pccunpa with a complex past medical history, including [...] parentsin the afternoon. He was taken to [facility], where he was noted to be minimally arousable and his serum sodium was 120. A temperature at that time was 30.8 degrees Celsius and a serum glucose was 64. He was given 1 amp of D50 and stress dose hydrocortisone and then was transferredto [facility] for further management. He [...] low serum sodium was 120 recorded at [facility] and his high serum sodium was 161. At the time of transfer to the regularinpatient unit, his serum electrolytes had stabilized. His most recent full set of electrolytes were [id number], potassium 3.3, chloride 109 and CO2 30. [...] of Unasyn. A blood culture done at [facility] prior to admission was negative. Neurologic: [...] He received stress dose steroids, beginning at [facility]. This stress dose was weaned to [...] his TSH deficiency. Psychosocial: Upon admission to [facility], Bettina parents were unavailable [...] Bejarano MD P - SS Job ID: [id number] Document ID: [id number] cc: MD Cy Walker MD Matthew Giefer, [...] an 18-year-old male who was admitted to [facility] October 21, 2008. Miguel Angel [...] months since theyreturned from a hospitalization in [place] which was in February of 2008. She states that his fluid totals and his medications have been adjusted and that in her opinion some of these adjustments have resulted in Robininstability. She states that she is well aware of his medication regimen and that Miguel Angel gets all of his medications as prescribed. Isabel ([facility]) states that for several days prior to [...] Miguel Angel Burgos , took him to [facility] where he was then transferred to [facility]. MOC states that they took him to the emergency room in [facility] but then did not go with Miguel Angel to [place]. She stated that somebody spoke with folks in the PICU in [place] but neither she nor her have been down to see Miguel Angel since he was admitted on October 21, 2008. She states that thefamily vehicle is under repair and they have no transportation to the hospital. [facility] states that currently Miguel Angel is getting services in the home. She states that he gets 55 hours per week of personal care assistance. 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 until 10 p.m. MO states that he attends school Friday through Friday and gets home at 3 p.m. MO states that they also get respite which is an in-home sales consultant usually on the weekends. She states that currentlythey have used their budget up for the year. There also had been some VNA services. It is not clearwhether she is still getting VNA services. [facility] states that she and Bettina father are [...] not feel that they miss medication doses. [facility] states that Miguel Angel is able to [...] hurting himself and does this on purpose. [facility] states that she and Bettina father have no desire to place Miguel Angel in a residential facility at this time. They feel that they are doing an adequate job with him at home. They feel that the servicesthat he is getting are helpful. RAHEL states that she does not like [facility]. She states that in the past, they have mismanaged Miguel Angel and because of that she does not like coming here and associating with the doctors here. She states that, if they could, they would prefer to have him in [place] but that they have not been able [...] states that she gets some help through [facility]. She also states that she gets some help through the [facility] organization but she was not sure which one. REVIEW OF SYSTEMS Behavioral review of systems: [facility] states that Miguel Angel tends to stay [...] of twisting his nipples to induce pain. [facility] also states that there are occasions when he will eat his own feces. Medical review of systems: Prior to this admission, [facility] states that he was doing some screeching and just behaviorally seemed to be a little out of sorts. There was decreased activity for several days prior to admission which she attributed to his testosterone shot. There was no history of fever orof any other respiratory symptoms. All other review of systems was negative. PAST MEDICAL HISTORY [facility] states that Miguel Angel was relatively well [...] to the Adult Protective Services and the deputy coroner investigator on the case is Sukhi Young. 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 She denies any prior history with [facility]. There is no history of psychiatric problems. Isabel reports that the father of Miguel Angel is Miguel Angel Burgos Sr. She states that he works on the [employer] which is within walking distance of their house. His date of is [birth year] 1966. She states that he didhave some prior involvement with [facility] regarding custody issues of an older daughter of his. Isabel reports that the biological mother of Miguel Angel was Jeannette Burgos. She when Miguel Angel was in [facility] about three years ago. She of [...] Review of the photographs taken by the [facility] nurse on admission show the following: There [...] Miguel Angel since he as admitted to [facility] and have made minimal attempts to contact health care personnel at [facility]. This is the third admission for Miguel Angel since he was discharged from [facility] 2007. RECOMMENDATIONS 1. Physical exam was completed today. 2. I have spoken with the Adult Protective Services deputy coroner investigator, Sukhi Young, regarding the injuries noted [...] can be put in place to assure [place] safety. 5. The nature of his bruises [...] Romo MD P - SADE Job ID: [id number] Document ID: [id number] cc: MD Corin Curry MD Daniel W Larrow, MD Karyn Patno, MD * Adult Protective Services, Sukhi Young documented in this encounter Plan of Treatment Upcoming Encounters Date Type Department Care Team (Late st Contact Info) Description 10/01/2024 13:40 EDT Office Visit [facility] Endocrinology - [place] [address] [place] [address] Wilder Zaidi, DO [address] [place] [address] Pending Results Name Type Priority [...] Organization Address [facility] Co de Phone Number [facility] [address] [place] [address] * SODIUM (11/04/2008 7:00 EDT) Sodium Duplicate Test Request 136 - 145 mEq/L [facility] Blood specimen (specimen) 11/04/2008 7:00 EDT 11/04/2008 7:21 EDT us Christopher Ga MD CHEMISTRY & BLOOD GAS ORDER LYNDSEY Final Result Performing Organization Address [facility] de Phone Number [facility] [address] [place] [address] * (ABNORMAL) GLUCOSE, SERUM (11/04/2008 6:50 EDT) Glucose, Serum 67(L) 70 - 100 mg/dl [facility] Comment:Heparinized plasma. Blood specimen (specimen) 11/04/2008 6:50 EDT 11/04/2008 7:20 EDT us Christopher Ga MD CHEMISTRY & BLOOD GAS ORDER LYNDSEY Final Result Performing Organization Address [facility] de Phone Number [facility] [address] [place] [address] * ELECTROLYTES (11/04/2008 6:50 EDT) Sodium 140 [...] Phone Number [facility] [address] [place] [address] * CREATININE (11/04/2008 6:50 EDT) Creatinine 0.70 0.7 - 1.5 mg/dl [facility] Comment:Heparinized plasma. GFR, Calculated >60 ml/min/1.7 3m2 [facility] Comment:Heparinized plasma. Blood specimen (specimen) 11/04/2008 6:50 EDT 11/04/2008 7:20 EDT us Christopher Ga MD CHEMISTRY & BLOOD GAS ORDER LYNDSEY Final Result Performing Organization Address [facility] de Phone Number [facility] [address] [place] [address] * BUN (11/04/2008 6:50 EDT) Pathologist [facility] BUN 15 10 - 26 mg/dl [facility] Comment:Heparinized plasma. Blood specimen (specimen) 11/04/2008 6:50 EDT 11/04/2008 7:20 EDT us Christopher Ga MD CHEMISTRY & BLOOD GAS ORDER LYNDSEY Final Result Performing Organization Address [facility] de Phone Number [facility] [address] [place] [address] * ELECTROLYTES (11/03/2008 19:00 EDT) Sodium 140 [...] Organization Address [facility] Co de Phone Number [facility] [address] [place] [address] * CREATININE (11/03/2008 19:00 EDT) Pathologist [facility] Creatinine 0.70 0.7 - 1.5 mg/dl [facility] GFR, Calculated >60 ml/min/1.7 3m2 [facility] Blood specimen (specimen) 11/03/2008 19:00 EDT 11/03/2008 19:24 EDT us Christopher Ga MD CHEMISTRY & BLOOD GAS ORDER LYNDSEY Final Result Performing Organization Address [facility] de Phone Number [facility] [address] [place] [address] * BUN (11/03/2008 19:00 EDT) Pathologist [facility] BUN 15 10 - 26 mg/dl [facility] Blood specimen (specimen) 11/03/2008 19:00 EDT 11/03/2008 19:24 EDT us Christopher Ga MD CHEMISTRY & BLOOD GAS ORDER LYNDSEY Final Result Performing Organization Address [facility] Phone [facility] [address] [place] [address] * OSMOLALITY (11/03/2008 14:00 EDT) Pathologist [facility] Osmolality Cintia 300 280 - 300 MOS/KG [facility] Blood specimen (specimen) 11/03/2008 14:00 EDT 11/03/2008 14:36 EDT us Christopher Ga MD CHEMISTRY & BLOOD GAS ORDER LYNDSEY Final Result Performing Organization Address [facility] de Phone Number [facility] [address] [place] [address] * SODIUM (11/03/2008 14:00 EDT) Pathologist [facility] Sodium 143 136 - 145 mEq/L [facility] Blood specimen (specimen) 11/03/2008 14:00 EDT 11/03/2008 14:36 EDT us Christopher Ga MD CHEMISTRY & BLOOD GAS ORDER LYNDSEY Final Result Performing Organization Address [facility] Co de Phone Number [facility] [address] [place] [address] * SODIUM, URINE RANDOM (11/03/2008 13:30 EDT) Sodium, Ur Sample quantity insufficient for testing. mEq/L [facility] Urine specimen (specimen) 11/03/2008 13:30 EDT 11/03/2008 15:04 EDT us Christopher Ga MD URINALYSIS ORDERABLES Final Result Performing Organization Address [facility] Phone Number [facility] [address] [place] [address] * OSMOLALITY,URINE (11/03/2008 13:30 EDT) Osmolality, Ur Sample quantity insufficient for testing. 392 - 1090 MOS/KG [facility] Urine specimen (specimen) 11/03/2008 13:30 EDT 11/03/2008 15:04 EDT us Christopher Ga MD URINALYSIS ORDERABLES Final Result Performing Organization Address [facility] Phone Number [facility] [address] [place] [address] * (ABNORMAL) GLUCOSE, SERUM (11/03/2008 6:20 EDT) Glucose, Serum 69(L) 70 - 100 mg/dl [facility] Blood specimen (specimen) 11/03/2008 6:20 EDT 11/03/2008 6:27 EDT us Christopher Ga MD CHEMISTRY & BLOOD GAS ORDER LYNDSEY Final Result Performing Organization Address [facility] de Phone Number [facility] [address] [place] [address] * ELECTROLYTES (11/03/2008 6:20 EDT) Sodium 144 [...] Organization Address [facility] de Phone Number [facility] [address] [place] [address] * CREATININE (11/03/2008 6:20 EDT) Creatinine 0.70 0.7 - 1.5 mg/dl [facility] GFR, Calculated >60 ml/min/1.7 3m2 [facility] Blood specimen (specimen) 11/03/2008 6:20 EDT 11/03/2008 6:27 EDT us Christopher Ga MD CHEMISTRY & BLOOD GAS ORDER LYNDSEY Final Result Performing Organization Address [facility] de Phone Number [facility] [address] [place] [address] * BUN (11/03/2008 6:20 EDT) BUN 15 10 - 26 mg/dl [facility] Blood specimen (specimen) 11/03/2008 6:20 EDT 11/03/2008 6:27 EDT us Christopher Ga MD CHEMISTRY & BLOOD GAS ORDER LYNDSEY Final Result Performing Organization Address [facility] Co de Phone Number [facility] [address] [place] [address] * SODIUM (11/03/2008 0:15 EDT) Sodium 143 136 - 145 mEq/L [facility] Blood specimen (specimen) 11/03/2008 0:15 EDT 11/03/2008 0:30 EDT us Christopher Ga MD CHEMISTRY & BLOOD GAS ORDER LYNDSEY Final Result Performing Organization Address [facility] de Phone Number [facility] [address] [place] [address] * ELECTROLYTES (11/02/2008 18:05 EDT) Sodium 141 [...] de Phone Number [facility] [address] [place] [address] * CREATININE (11/02/2008 18:05 EDT) Creatinine 0.70 0.7 - 1.5 mg/dl [facility] GFR, Calculated >60 ml/min/1.7 3m2 [facility] Blood specimen (specimen) 11/02/2008 18:05 EDT 11/02/2008 18:22 EDT us Christopher Ga MD CHEMISTRY & BLOOD GAS ORDER LYNDSEY Final Result Performing Organization Address [facility] de Phone Number [facility] [address] [place] [address] * BUN (11/02/2008 18:05 EDT) BUN 17 10 - 26 mg/dl [facility] Blood specimen (specimen) 11/02/2008 18:05 EDT 11/02/2008 18:22 EDT us Christopher Ga MD CHEMISTRY & BLOOD GAS ORDER LYNDSEY Final Result Performing Organization Address [facility] de Phone Number [facility] [address] [place] [address] * (ABNORMAL) GLUCOSE, SERUM (11/02/2008 5:50 EDT) Glucose, Serum 68(L) 70 - 100 mg/dl [facility] Blood specimen (specimen) 11/02/2008 5:50 EDT 11/02/2008 6:04 EDT us Christopher Ga MD CHEMISTRY & BLOOD GAS ORDER LYNDSEY Final Result Performing Organization Address [facility] de Phone Number [facility] [address] [place] [address] * ELECTROLYTES (11/02/2008 5:50 EDT) Sodium 142 [...] Phone Number [facility] [address] [place] [address] * CREATININE (11/02/2008 5:50 EDT) Creatinine 0.70 0.7 - 1.5 mg/dl [facility] GFR, Calculated >60 ml/min/1.7 3m2 [facility] Blood specimen (specimen) 11/02/2008 5:50 EDT 11/02/2008 6:04 EDT us Christopher Ga MD CHEMISTRY & BLOOD GAS ORDER LYNDSEY Final Result Performing Organization Address [facility] de Phone Number [facility] [address] [place] [address] * BUN (11/02/2008 5:50 EDT) BUN 15 10 - 26 mg/dl [facility] Blood specimen (specimen) 11/02/2008 5:50 EDT 11/02/2008 6:04 EDT us Christopher Ga MD CHEMISTRY & BLOOD GAS ORDER LYNDSEY Final Result Performing Organization Address [facility] de Phone Number [facility] [address] [place] [address] * SODIUM (11/01/2008 22:00 EDT) Pathologist [facility] Sodium 137 136 - 145 mEq/L [facility] Blood specimen (specimen) 11/01/2008 22:00 EDT 11/01/2008 22:24 EDT us Christopher Ga MD CHEMISTRY & BLOOD GAS ORDER LYNDSEY Final Result Performing Organization Address [facility] de Phone Number [facility] [address] [place] [address] * SODIUM, URINE RANDOM (11/01/2008 13:30 EDT) Sodium, Ur 15.0 mEq/L [facility] Urine specimen (specimen) 11/01/2008 13:30 EDT 11/01/2008 13:51 EDT us Christopher Ga MD URINALYSIS ORDERABLES Final Result Performing Organization Address [facility] de Phone Number [facility] [address] [place] [address] * (ABNORMAL) OSMOLALITY,URINE (11/01/2008 13:30 EDT) Osmolality, Ur 163(L) 392 - 1090 MOS/KG [facility] Urine specimen (specimen) 11/01/2008 13:30 EDT 11/01/2008 13:51 EDT us Christopher Ga MD URINALYSIS ORDERABLES Final Result Performing Organization Address [facility] Phone Number [facility] [address] [place] [address] * OSMOLALITY (11/01/2008 13:20 EDT) Pathologist [facility] Osmolality Cintia 294 280 - 300 MOS/KG [facility] Blood specimen (specimen) 11/01/2008 13:20 EDT 11/01/2008 13:52 EDT us Christopher Ga MD CHEMISTRY & BLOOD GAS ORDER LYNDSEY Final Result Performing Organization Address [facility] Phone Number [facility] [address] [place] [address] * SODIUM (11/01/2008 13:20 EDT) Pathologist [facility] Sodium 138 136 - 145 mEq/L [facility] Blood specimen (specimen) 11/01/2008 13:20 EDT 11/01/2008 13:52 EDT Christopher Ga MD CHEMISTRY & BLOOD GAS ORDER LYNDSEY Final Result Performing Organization Address [facility] Phone [facility] [address] [place] [address] * GLUCOSE, SERUM (11/01/2008 7:00 EDT) Pathologist [facility] Glucose, Serum 77 70 - 100 mg/dl [facility] Blood specimen (specimen) 11/01/2008 7:00 EDT 11/01/2008 7:18 EDT Christopher Ga MD CHEMISTRY & BLOOD GAS ORDER LYNDSEY Final Result Performing Organization Address [facility] de Phone Number [facility] [address] [place] [address] * (ABNORMAL) ELECTROLYTES (11/01/2008 7:00 EDT) Sodium [...] Organization Address [facility] de Phone Number [facility] [address] [place] [address] * CREATININE (11/01/2008 7:00 EDT) Creatinine 0.80 0.7 - 1.5 mg/dl [facility] GFR, Calculated >60 ml/min/1.7 3m2 [facility] Blood specimen (specimen) 11/01/2008 7:00 EDT 11/01/2008 7:18 EDT us Christopher Ga MD CHEMISTRY & BLOOD GAS ORDER LYNDSEY Final Result Performing Organization Address [facility] de Phone Number [facility] [address] [place] [address] * BUN (11/01/2008 7:00 EDT) BUN 18 10 - 26 mg/dl [facility] Blood specimen (specimen) 11/01/2008 7:00 EDT 11/01/2008 7:18 EDT us Christopher Ga MD CHEMISTRY & BLOOD GAS ORDER LYNDSEY Final Result Performing Organization Address [facility] de Phone Number [facility] [address] [place] [address] * HOLD SST (10/31/2008 20:00 EDT) Hold SST Hold for further testing. Specimen will be held for 5 days. [facility] 10/31/2008 20:0 0 EDT 10/31/2008 20:13 EDT us Christopher Ga MD LAB INFO SERVICE AND SUPPOR T & PHONE RESULT Final Result Performing Organization Address [facility] Phone Number [facility] [address] [place] [address] * CORTISOL (10/31/2008 20:00 EDT) Cortisol 17 ug/dl [facility] Comment: 7-9a.m.=4.3-22.4 3-5p.m.=3.1-16.7 Blood specimen (specimen) 10/31/2008 20:00 EDT 10/31/2008 20:13 EDT us Christopher Ga MD CHEMISTRY & BLOOD GAS ORDER LYNDSEY Final Result Performing Organization Address [facility] Phone Number [facility] [address] [place] [address] * (ABNORMAL) GLUCOSE, SERUM (10/31/2008 7:00 EDT) Glucose, Serum 68(L) 70 - 100 mg/dl [facility] Blood specimen (specimen) 10/31/2008 7:00 EDT 10/31/2008 7:33 EDT us Christopher Ga MD CHEMISTRY & BLOOD GAS ORDER LYNDSEY Final Result Performing Organization Address [facility] de Phone Number [facility] [address] [place] [address] * ELECTROLYTES (10/31/2008 7:00 EDT) Sodium 142 [...] ORDER LYNDSEY Final Result Performing Organization Address [facility]/ZIP Co de Phone Number [facility] [address] [place] [address] * CREATININE (10/31/2008 7:00 EDT) Creatinine 0.70 0.7 - 1.5 mg/dl [facility] GFR, Calculated >60 ml/min/1.7 3m2 [facility] Blood specimen (specimen) 10/31/2008 7:00 EDT 10/31/2008 7:33 EDT us Christopher Ga MD CHEMISTRY & BLOOD GAS ORDER LYNDSEY Final Result Performing Organization Address [facility] Co de Phone Number [facility] [address] [place] [address] * BUN (10/31/2008 7:00 EDT) BUN 16 10 - 26 mg/dl [facility] Blood specimen (specimen) 10/31/2008 7:00 EDT 10/31/2008 7:33 EDT us Christopher Ga MD CHEMISTRY & BLOOD GAS ORDER LYNDSEY Final Result Performing Organization Address [facility] de Phone Number [facility] [address] [place] [address] * GLUCOSE, SERUM (10/30/2008 18:45 EDT) Glucose, Serum 88 70 - 100 mg/dl [facility] 10/30/2008 18:4 5 EDT 10/30/2008 18:56 EDT us Christophre Ga MD CHEMISTRY & BLOOD GAS ORDER LYNDSEY Final Result Performing Organization Address [facility] Co de Phone Number [facility] [address] [place] [address] * SODIUM (10/30/2008 18:45 EDT) Pathologist [facility] Sodium 141 136 - 145 mEq/L [facility] 10/30/2008 18:4 5 EDT 10/30/2008 18:56 EDT Christopher Ga MD CHEMISTRY & BLOOD GAS ORDER LYNDSEY Final Result Performing Organization Address [facility] de Phone Number [facility] [address] [place] [address] * CORTISOL (10/30/2008 18:45 EDT) Pathologist [facility] Cortisol 32 ug/dl [facility] Comment: 7-9a.m.=4.3-22.4 3-5p.m.=3.1-16.7 Blood specimen (specimen) 10/30/2008 18:45 EDT 10/30/2008 18:56 EDT Christopher Ga MD CHEMISTRY & BLOOD GAS ORDER LYNDSEY Final Result Performing Organization Address [facility] de Phone Number [facility] [address] [place] [address] * SODIUM, URINE RANDOM (10/30/2008 7:15 EDT) Pathologist [facility] Sodium, Ur 65.0 mEq/L [facility] Urine specimen (specimen) 10/30/2008 7:15 EDT 10/30/2008 7:32 EDT Christopher Ga MD URINALYSIS ORDERABLES Final Result Performing Organization Address [facility] de Phone Number [facility] [address] [place] [address] * (ABNORMAL) OSMOLALITY,URINE (10/30/2008 7:15 EDT) Pathologist [facility] Osmolality, Ur 199(L) 392 - 1090 MOS/KG [facility] Urine specimen (specimen) 10/30/2008 7:15 EDT 10/30/2008 7:32 EDT Christopher Ga MD URINALYSIS ORDERABLES Final Result Performing Organization Address [facility] de Phone Number [facility] [address] [place] [address] * (ABNORMAL) GLUCOSE, SERUM (10/30/2008 7:15 EDT) Glucose, Serum 69(L) 70 - 100 mg/dl [facility] Comment:Heparinized plasma. Blood specimen (specimen) 10/30/2008 7:15 EDT 10/30/2008 7:32 EDT us Christopher Ga MD CHEMISTRY & BLOOD GAS ORDER LYNDSEY Final Result Performing Organization Address [facility] Phone Number [facility] [address] [place] [address] * ELECTROLYTES (10/30/2008 7:15 EDT) Sodium 142 [...] LYNDSEY Final Result Performing Organization Address [facility] Phone Number [facility] [address] [place] [address] * CREATININE (10/30/2008 7:15 EDT) Creatinine 0.70 0.7 - 1.5 mg/dl [facility] Comment:Heparinized plasma. GFR, Calculated >60 ml/min/1.7 3m2 [facility] Comment:Heparinized plasma. Blood specimen (specimen) 10/30/2008 7:15 EDT 10/30/2008 7:32 EDT us Christopher Ga MD CHEMISTRY & BLOOD GAS ORDER LYNDSEY Final Result Performing Organization Address [facility] Phone Number [facility] [address] [place] [address] * BUN (10/30/2008 7:15 EDT) BUN 13 10 - 26 mg/dl [facility] Comment:Heparinized plasma. Blood specimen (specimen) 10/30/2008 7:15 EDT 10/30/2008 7:32 EDT us Crhistopher Ga MD CHEMISTRY & BLOOD GAS ORDER LYNDSEY Final Result Performing Organization Address [facility] Phone Number [facility] [address] [place] [address] * (ABNORMAL) OSMOLALITY,URINE (10/29/2008 19:50 EDT) Pathologist [facility] Osmolality, Ur 106(L) 392 - 1090 MOS/KG [facility] Urine specimen (specimen) 10/29/2008 19:50 EDT 10/29/2008 20:08 EDT us Christopher Ga MD URINALYSIS ORDERABLES Final Result Performing Organization Address [facility] Phone Number [facility] [address] [place] [address] * GLUCOSE, SERUM (10/29/2008 18:15 EDT) Pathologist [facility] Glucose, Serum 87 70 - 100 mg/dl [facility] Blood specimen (specimen) 10/29/2008 18:15 EDT 10/29/2008 18:44 EDT us Christopher Ga MD CHEMISTRY & BLOOD GAS ORDER LYNDSEY Final Result Performing Organization Address [facility] de Phone Number [facility] [address] [place] [address] * SODIUM (10/29/2008 18:15 EDT) Pathologist [facility] Sodium 136 136 - 145 mEq/L [facility] Blood specimen (specimen) 10/29/2008 18:15 EDT 10/29/2008 18:44 EDT us Christopher Ga MD CHEMISTRY & BLOOD GAS ORDER LYNDSEY Final Result Performing Organization Address [facility] Phone Number [facility] [address] [place] [address] * SODIUM, URINE RANDOM (10/29/2008 18:15 EDT) Sodium, Ur 87.0 mEq/L [facility] Urine specimen (specimen) 10/29/2008 18:15 EDT 10/29/2008 18:45 EDT us Christopher Ga MD URINALYSIS ORDERABLES Final Result Performing Organization Address [facility] Phone Number [facility] [address] [place] [address] * (ABNORMAL) OSMOLALITY,URINE (10/29/2008 18:15 EDT) Pathologist [facility] Osmolality, Ur 336(L) 392 - 1090 MOS/KG [facility] Urine specimen (specimen) 10/29/2008 18:15 EDT 10/29/2008 18:45 EDT us Christopher Ga MD URINALYSIS ORDERABLES Final Result Performing Organization Address [facility] Phone Number [facility] [address] [place] [address] * (ABNORMAL) GLUCOSE, SERUM (10/29/2008 6:40 EDT) Pathologist [facility] Glucose, Serum 63(L) 70 - 100 mg/dl [facility] Blood specimen (specimen) 10/29/2008 6:40 EDT 10/29/2008 6:55 EDT Christopher Ga MD CHEMISTRY & BLOOD GAS ORDER LYNDSEY Final Result Performing Organization Address [facility] Co de Phone Number [facility] [address] [place] [address] * ELECTROLYTES (10/29/2008 6:40 EDT) Sodium 138 [...] ORDER LYNDSEY Final Result Performing Organization Address [facility] de Phone Number [facility] [address] [place] [address] * CREATININE (10/29/2008 6:40 EDT) Pathologist [facility] Creatinine 0.70 0.7 - 1.5 mg/dl [facility] GFR, Calculated >60 ml/min/1.7 3m2 [facility] Blood specimen (specimen) 10/29/2008 6:40 EDT 10/29/2008 6:55 EDT us Christopher Ga MD CHEMISTRY & BLOOD GAS ORDER LYNDSEY Final Result Performing Organization Address [facility] de Phone Number [facility] [address] [place] [address] * BUN (10/29/2008 6:40 EDT) BUN 13 10 - 26 mg/dl [facility] Blood specimen (specimen) 10/29/2008 6:40 EDT 10/29/2008 6:55 EDT us Christopher Ga MD CHEMISTRY & BLOOD GAS ORDER LYNDSEY Final Result Performing Organization Address [facility] Co de Phone Number [facility] [address] [place] [address] * (ABNORMAL) OSMOLALITY,URINE (10/29/2008 6:35 EDT) Osmolality, Ur 171(L) 392 - 1090 MOS/KG [facility] 10/29/2008 6:35 EDT 10/29/2008 6:57 EDT us Christopher Ga MD URINALYSIS ORDERABLES Final Result Performing Organization Address [facility] Phone Number [facility] [address] [place] [address] * SODIUM, URINE RANDOM (10/29/2008 6:35 EDT) Sodium, Ur 71.0 mEq/L [facility] 10/29/2008 6:35 EDT 10/29/2008 6:57 EDT us Christopher Ga MD URINALYSIS ORDERABLES Final Result Performing Organization Address [facility] Phone Number [facility] [address] [place] [address] * SODIUM, URINE RANDOM (10/29/2008 1:35 EDT) Sodium, Ur 262.0 mEq/L [facility] Urine specimen (specimen) 10/29/2008 1:35 EDT 10/29/2008 1:54 EDT us Christopher Ga MD URINALYSIS ORDERABLES Final Result Performing Organization Address [facility] Phone Number [facility] [address] [place] [address] * OSMOLALITY,URINE (10/29/2008 1:35 EDT) Osmolality, Ur 581 392 - 1090 MOS/KG [facility] Urine specimen (specimen) 10/29/2008 1:35 EDT 10/29/2008 1:54 EDT Christopher Ga MD URINALYSIS ORDERABLES Final Result Performing Organization Address [facility] Co de Phone Number [facility] [address] [place] [address] * TESTS ADDED BY PHONE (10/28/2008 19:25 EDT) 10/28/2008 19:2 5 EDT 10/28/2008 19:34 EDT Christopher Ga MD CHEMISTRY & BLOOD GAS ORDER LYNDSEY Final Result Performing Organization Address [facility] de Phone Number [facility] [address] [place] [address] * (ABNORMAL) OSMOLALITY,URINE (10/28/2008 19:25 EDT) Pathologist [facility] Osmolality, Ur 327(L) 392 - 1090 MOS/KG [facility] 10/28/2008 19:2 5 EDT 10/28/2008 19:36 EDT us Christopher Ga MD URINALYSIS ORDERABLES Final Result Performing Organization Address [facility] de Phone Number [facility] [address] [place] [address] * HOLD GREEN TOP (10/28/2008 19:25 EDT) [facility] Hold Green Top Hold for further testing. Specimen will be held for 5 days. [facility] 10/28/2008 19:2 5 EDT 10/28/2008 19:34 EDT us Christopher Ga MD LAB INFO SERVICE AND SUPPOR T & PHONE RESULT Final Result Performing Organization Address [facility] de Phone Number [facility] [address] [place] [address] * SODIUM, URINE RANDOM (10/28/2008 19:25 EDT) Pathologist [facility] Sodium, Ur 115.0 mEq/L [facility] Urine specimen (specimen) 10/28/2008 19:25 EDT 10/28/2008 19:36 EDT Christopher Ga MD URINALYSIS ORDERABLES Final Result Performing Organization Address [facility] de Phone Number [facility] [address] [place] [address] * GLUCOSE, SERUM (10/28/2008 19:25 EDT) Glucose, Serum 80 70 - 100 mg/dl [facility] Blood specimen (specimen) 10/28/2008 19:25 EDT 10/28/2008 19:34 EDT us Christopher Ga MD CHEMISTRY & BLOOD GAS ORDER LYNDSEY Final Result Performing Organization Address [facility] Phone Number [facility] [address] [place] [address] * ELECTROLYTES (10/28/2008 19:25 EDT) Sodium 142 [...] LYNDSEY Final Result Performing Organization Address [facility] Phone Number [facility] [address] [place] [address] * CORTISOL (10/28/2008 19:25 EDT) Cortisol 20 ug/dl [facility] Comment: 7-9a.m.=4.3-22.4 3-5p.m.=3.1-16.7 Blood specimen (specimen) 10/28/2008 19:25 EDT 10/28/2008 19:34 EDT us Christopher Ga MD CHEMISTRY & BLOOD GAS ORDER LYNDSEY Final Result Performing Organization Address [facility]/State/ZIP Co de Phone Number [facility] [address] [place] [address] * TESTOSTERONE (10/28/2008 12:41 EDT) Testosterone, Total 398 241 - 827 ng/dL [facility] Blood specimen (specimen) 10/28/2008 12:41 EDT 10/28/2008 12:44 EDT us Christopher Ga MD CHEMISTRY & BLOOD GAS ORDER LYNDSEY Final Result Performing Organization Address [facility] Co de Phone Number [facility] [address] [place] [address] * (ABNORMAL) SODIUM (10/28/2008 11:55 EDT) Pathologist [facility] Sodium 146(H) 136 - 145 mEq/L [facility] 10/28/2008 11:5 5 EDT 10/28/2008 12:24 EDT us Christopher Ga MD CHEMISTRY & BLOOD GAS ORDER LYNDSEY Final Result Performing Organization Address [facility] de Phone Number [facility] [address] [place] [address] * TESTOSTERONE (10/28/2008 11:55 EDT) Testosterone, Total Wrong tube/speci men type 241 - 827 ng/dL [facility] Blood specimen (specimen) 10/28/2008 11:55 EDT 10/28/2008 12:16 EDT us Christopher Ga MD CHEMISTRY & BLOOD GAS ORDER LYNDSEY Final Result Performing Organization Address [facility] Co de Phone Number [facility] [address] [place] [address] * CORTISOL (10/28/2008 11:55 EDT) Pathologist [facility] Cortisol Wrong tube/speci men type ug/dl [facility] Comment:SPOKE TO ANKITA Blood specimen (specimen) 10/28/2008 11:55 EDT 10/28/2008 12:16 EDT us Christopher Ga MD CHEMISTRY & BLOOD GAS ORDER LYNDSEY Final Result Performing Organization Address [facility] Co de Phone Number [facility] [address] [place] [address] * SODIUM (10/28/2008 11:55 EDT) Sodium Wrong tube/speci men type 136 - 145 mEq/L [facility] Comment:SPOKE TO ANKITA Blood specimen (specimen) 10/28/2008 11:55 EDT 10/28/2008 12:16 EDT us Christopher Ga MD CHEMISTRY & BLOOD GAS ORDER LYNDSEY Final Result Performing Organization Address [facility] de Phone Number [facility] [address] [place] [address] * SODIUM, URINE RANDOM (10/28/2008 11:45 EDT) Sodium, Ur 214.0 mEq/L [facility] Urine specimen (specimen) 10/28/2008 11:45 EDT 10/28/2008 12:14 EDT us Christopher Ga MD URINALYSIS ORDERABLES Final Result Performing Organization Address [facility] de Phone Number [facility] [address] [place] [address] * OSMOLALITY,URINE (10/28/2008 11:45 EDT) Pathologist [facility] Osmolality, Ur 512 392 - 1090 MOS/KG [facility] Urine specimen (specimen) 10/28/2008 11:45 EDT 10/28/2008 12:14 EDT us Christopher Ga MD URINALYSIS ORDERABLES Final Result Performing Organization Address [facility] Co de Phone Number [facility] [address] [place] [address] * SODIUM, URINE RANDOM (10/28/2008 10:13 EDT) Sodium, Ur 58.0 mEq/L [facility] Urine specimen (specimen) 10/28/2008 10:13 EDT 10/28/2008 10:18 EDT us Christopher Ga MD URINALYSIS ORDERABLES Final Result Performing Organization Address [facility] de Phone Number [facility] [address] [place] [address] * (ABNORMAL) OSMOLALITY,URINE (10/28/2008 10:13 EDT) Osmolality, Ur 171(L) 392 - 1090 MOS/KG [facility] Urine specimen (specimen) 10/28/2008 10:13 EDT 10/28/2008 10:18 EDT us Christopher Ga MD URINALYSIS ORDERABLES Final Result Performing Organization Address [facility] de Phone Number [facility] [address] [place] [address] * SODIUM (10/28/2008 10:13 EDT) Pathologist [facility] Sodium 144 136 - 145 mEq/L [facility] Blood specimen (specimen) 10/28/2008 10:13 EDT 10/28/2008 10:18 EDT us Christopher Ga MD CHEMISTRY & BLOOD GAS ORDER LYNDSEY Final Result Performing Organization Address [facility] de Phone Number [facility] [address] [place] [address] * TESTS ADDED BY PHONE (10/28/2008 8:15 EDT) Pathologist [facility] Tests to be added OSM [facility] GARCIA Who Called DR [facility]I [facility] Location Code M3 [facility] Read Back/Confirmed ? YES [facility] 10/28/2008 8:15 EDT 10/28/2008 8:30 EDT us Christopher Ga MD CHEMISTRY & BLOOD GAS ORDER LYNDSEY Final Result Performing Organization Address [facility] Co de Phone Number [facility] [address] [place] [address] * (ABNORMAL) OSMOLALITY,URINE (10/28/2008 8:15 EDT) Osmolality, Ur 295(L) 392 - 1090 MOS/KG [facility] 10/28/2008 8:15 EDT 10/28/2008 8:30 EDT us Christopher Ga MD URINALYSIS ORDERABLES Final Result Performing Organization Address [facility] Phone Number [facility] [address] [place] [address] * SODIUM, URINE RANDOM (10/28/2008 8:15 EDT) Sodium, Ur 131.0 mEq/L [facility] Urine specimen (specimen) 10/28/2008 8:15 EDT 10/28/2008 8:30 EDT us Christopher Ga MD URINALYSIS ORDERABLES Final Result Performing Organization Address [facility] Phone Number [facility] [address] [place] [address] * (ABNORMAL) ELECTROLYTES (10/28/2008 8:15 EDT) Sodium [...] Organization Address [facility] Co de Phone Number [facility] [address] [place] [address] * (ABNORMAL) ELECTROLYTES (10/28/2008 6:00 EDT) Sodium [...] Organization Address [facility] Phone Number [facility] [address] [place] [address] * (ABNORMAL) CREATININE (10/28/2008 6:00 EDT) Creatinine 0.65(L) 0.7 - 1.5 mg/dl [facility] GFR, Calculated >60 ml/min/1.7 3m2 [facility] 10/28/2008 6:00 EDT 10/28/2008 6:16 EDT us Christopher Ga MD CHEMISTRY & BLOOD GAS ORDER LYNDSEY Final Result Performing Organization Address [facility] de Phone Number [facility] [address] [place] [address] * (ABNORMAL) BUN (10/28/2008 6:00 EDT) BUN 9(L) 10 - 26 mg/dl [facility] 10/28/2008 6:00 EDT 10/28/2008 6:16 EDT us Christopher Ga MD CHEMISTRY & BLOOD GAS ORDER LYNDSEY Final Result Performing Organization Address [facility] de Phone Number [facility] [address] [place] [address] * SODIUM, URINE RANDOM (10/28/2008 6:00 EDT) Sodium, Ur 169.0 mEq/L [facility] Urine specimen (specimen) 10/28/2008 6:00 EDT 10/28/2008 6:15 EDT us Christopher Ga MD URINALYSIS ORDERABLES Final Result Performing Organization Address [facility] Phone Number [facility] [address] [place] [address] * OSMOLALITY,URINE (10/28/2008 6:00 EDT) Osmolality, Ur 397 392 - 1090 MOS/KG [facility] Urine specimen (specimen) 10/28/2008 6:00 EDT 10/28/2008 6:15 EDT us Christopher Ga MD URINALYSIS ORDERABLES Final Result Performing Organization Address [facility] [place] [address] * GLUCOSE, SERUM (10/28/2008 4:00 EDT) Pathologist [facility] Glucose, Serum 74 70 - 100 mg/dl [facility] Blood specimen (specimen) 10/28/2008 4:00 EDT 10/28/2008 4:01 EDT us Christopher Ga MD CHEMISTRY & BLOOD GAS ORDER LYNDSEY Final Result Performing Organization Address [facility] Phone Number [facility] [address] [place] [address] * SODIUM (10/28/2008 4:00 EDT) Sodium 143 136 - 145 mEq/L [facility] Blood specimen (specimen) 10/28/2008 4:00 EDT 10/28/2008 4:01 EDT us Christopher Ga MD CHEMISTRY & BLOOD GAS ORDER LYNDSEY Final Result [facility] [address] [place] [address] * SODIUM, URINE RANDOM (10/28/2008 4:00 EDT) Sodium, Ur 177.0 mEq/L [facility] Urine specimen (specimen) 10/28/2008 4:00 EDT 10/28/2008 4:01 EDT us Christopher Ga MD URINALYSIS ORDERABLES Final Result Performing Organization Address [facility] Co de Phone Number [facility] [address] [place] [address] * OSMOLALITY,URINE (10/28/2008 4:00 EDT) Osmolality, Ur 402 392 - 1090 MOS/KG [facility] Urine specimen (specimen) 10/28/2008 4:00 EDT 10/28/2008 4:01 EDT us Christopher Ga MD URINALYSIS ORDERABLES Final Result Performing Organization Address [facility] Co de Phone Number [facility] [address] [place] [address] * SODIUM, URINE RANDOM (10/28/2008 2:30 EDT) Sodium, Ur 175.0 mEq/L [facility] Urine specimen (specimen) 10/28/2008 2:30 EDT 10/28/2008 2:35 EDT us Christopher Ga MD URINALYSIS ORDERABLES Final Result Performing Organization Address [facility] Co de Phone Number [facility] [address] [place] [address] * OSMOLALITY,URINE (10/28/2008 2:30 EDT) Osmolality, Ur 398 392 - 1090 MOS/KG [facility] Urine specimen (specimen) 10/28/2008 2:30 EDT 10/28/2008 2:35 EDT us Christopher aG MD URINALYSIS ORDERABLES Final Result Performing Organization Address [facility]/ZIP Co de Phone Number [facility] [address] [place] [address] * SODIUM (10/28/2008 2:00 EDT) Sodium 144 136 - 145 mEq/L [facility] 10/28/2008 2:00 EDT 10/28/2008 2:14 EDT us Christopher Ga MD CHEMISTRY & BLOOD GAS ORDER LYNDSEY Final Result Performing Organization Address [facility] Co de Phone Number [facility] [address] [place] [address] * SODIUM, URINE RANDOM (10/27/2008 20:00 EDT) Sodium, Ur 213.0 mEq/L [facility] Comment:Sample retested, res ult confirmed Urine specimen (specimen) 10/27/2008 20:00 EDT 10/27/2008 20:09 EDT us Christopher Ga MD URINALYSIS ORDERABLES Final Result Performing Organization Address [facility] de Phone Number [facility] [address] [place] [address] * OSMOLALITY,URINE (10/27/2008 20:00 EDT) Osmolality, Ur 544 392 - 1090 MOS/KG [facility] Urine specimen (specimen) 10/27/2008 20:00 EDT 10/27/2008 20:09 EDT us Christopher Ga MD URINALYSIS ORDERABLES Final Result Performing Organization Address [facility] Co de Phone Number [facility] [address] [place] [address] * (ABNORMAL) ELECTROLYTES (10/27/2008 20:00 EDT) Sodium [...] Organization Address [facility] de Phone Number [facility] [address] [place] [address] * CREATININE (10/27/2008 20:00 EDT) Creatinine 0.80 0.7 - 1.5 mg/dl [facility] GFR, Calculated >60 ml/min/1.7 3m2 [facility] Blood specimen (specimen) 10/27/2008 20:00 EDT 10/27/2008 20:09 EDT us Christopher Ga MD CHEMISTRY & BLOOD GAS ORDER LYNDSEY Final Result Performing Organization Address [facility] Phone Number [facility] [address] [place] [address] * BUN (10/27/2008 20:00 EDT) BUN 13 10 - 26 mg/dl [facility] Blood specimen (specimen) 10/27/2008 20:00 EDT 10/27/2008 20:09 EDT us Christopher Ga MD CHEMISTRY & BLOOD GAS ORDER LYNDSEY Final Result Performing Organization Address [facility] de Phone Number [facility] [address] [place] [address] * (ABNORMAL) SODIUM (10/27/2008 14:30 EDT) Sodium 152(H) 136 - 145 mEq/L [facility] Blood specimen (specimen) 10/27/2008 14:30 EDT 10/27/2008 14:47 EDT us Christopher Ga MD CHEMISTRY & BLOOD GAS ORDER LYNDSEY Final Result Performing Organization Address [facility] de Phone Number [facility] [address] [place] [address] * SODIUM, URINE RANDOM (10/27/2008 13:20 EDT) Sodium, Ur 19.0 mEq/L [facility] Urine specimen (specimen) 10/27/2008 13:20 EDT 10/27/2008 13:32 EDT us Christopher Ga MD URINALYSIS ORDERABLES Final Result Performing Organization Address [facility] de Phone Number [facility] [address] [place] [address] * (ABNORMAL) OSMOLALITY,URINE (10/27/2008 13:20 EDT) Osmolality, Ur 116(L) 392 - 1090 MOS/KG [facility] Urine specimen (specimen) 10/27/2008 13:20 EDT 10/27/2008 13:32 EDT us Christopher Ga MD URINALYSIS ORDERABLES Final Result Performing Organization Address [facility] de Phone Number [facility] [address] [place] [address] * SODIUM, URINE RANDOM (10/27/2008 12:23 EDT) Sodium, Ur 107.0 mEq/L [facility] Urine specimen (specimen) 10/27/2008 12:23 EDT 10/27/2008 12:23 EDT us Christopher Ga MD URINALYSIS ORDERABLES Final Result Performing Organization Address [facility] de Phone Number [facility] [address] [place] [address] * OSMOLALITY,URINE (10/27/2008 12:23 EDT) Osmolality, Ur 808 392 - 1090 MOS/KG [facility] Urine specimen (specimen) 10/27/2008 12:23 EDT 10/27/2008 12:23 EDT Christopher Ga MD URINALYSIS ORDERABLES Final Result Performing Organization Address [facility] Phone Number [facility] [address] [place] [address] * (ABNORMAL) SODIUM (10/27/2008 12:21 EDT) Sodium 150(H) 136 - 145 mEq/L [facility] Blood specimen (specimen) 10/27/2008 12:21 EDT 10/27/2008 12:21 EDT Christopher Ga MD CHEMISTRY & BLOOD GAS ORDER LYNDSEY Final Result Performing Organization Address [facility] Phone Number [facility] [address] [place] [address] * (ABNORMAL) SODIUM (10/27/2008 9:40 EDT) Sodium 151(H) 136 - 145 mEq/L [facility] Blood specimen (specimen) 10/27/2008 9:40 EDT 10/27/2008 9:59 EDT Christopher Ga MD CHEMISTRY & BLOOD GAS ORDER LYNDSEY Final Result Performing Organization Address [facility] de Phone Number [facility] [address] [place] [address] * (ABNORMAL) SODIUM (10/27/2008 6:50 EDT) Sodium 152(H) 136 - 145 mEq/L [facility] Comment:Sample retested, res ult confirmed Blood specimen (specimen) 10/27/2008 6:50 EDT 10/27/2008 6:52 EDT us Christopher Ga MD CHEMISTRY & BLOOD GAS ORDER LYNDSEY Final Result Performing Organization Address [facility] de Phone Number [facility] [address] [place] [address] * (ABNORMAL) SODIUM (10/27/2008 6:15 EDT) Sodium 124(LL) 136 - 145 mEq/L [facility] Comment: Sample retested, result confirmed Question specimen contaminated. Repeat Requested Blood specimen (specimen) 10/27/2008 6:15 EDT 10/27/2008 6:16 EDT us Christopher Ga MD CHEMISTRY & BLOOD GAS ORDER LYNDSEY Final Result Performing Organization Address [facility] Phone Number [facility] [address] [place] [address] * GLUCOSE, SERUM (10/27/2008 4:30 EDT) Glucose, Serum 86 70 - 100 mg/dl [facility] 10/27/2008 4:30 EDT 10/27/2008 4:34 EDT us Christopher Ga MD CHEMISTRY & BLOOD GAS ORDER LYNDSEY Final Result Performing Organization Address [facility] Phone Number [facility] [address] [place] [address] * (ABNORMAL) ELECTROLYTES (10/27/2008 4:30 EDT) Sodium [...] Organization Address [facility]/State/ZIP Co de Phone Number [facility] [address] [place] [address] * CREATININE (10/27/2008 4:30 EDT) Pathologist [facility] Creatinine 0.83 0.7 - 1.5 mg/dl [facility] GFR, Calculated >60 ml/min/1.7 3m2 [facility] Blood specimen (specimen) 10/27/2008 4:30 EDT 10/27/2008 4:34 EDT us Christopher Ga MD CHEMISTRY & BLOOD GAS ORDER LYNDSEY Final Result Performing Organization Address [facility] de Phone Number [facility] [address] [place] [address] * BUN (10/27/2008 4:30 EDT) BUN 14 10 - 26 mg/dl [facility] Blood specimen (specimen) 10/27/2008 4:30 EDT 10/27/2008 4:34 EDT us Christopher Ga MD CHEMISTRY & BLOOD GAS ORDER LYNDSEY Final Result Performing Organization Address [facility] Phone Number [facility] [address] [place] [address] * (ABNORMAL) SODIUM (10/27/2008 1:30 EDT) Pathologist [facility] Sodium 159(HH) 136 - 145 mEq/L [facility] Comment:Sample retested, res ult confirmed Blood specimen (specimen) 10/27/2008 1:30 EDT 10/27/2008 1:41 EDT Christopher Ga MD CHEMISTRY & BLOOD GAS ORDER LYNDSEY Final Result Performing Organization Address [facility] de Phone Number [facility] [address] [place] [address] * SODIUM, URINE RANDOM (10/27/2008 0:15 EDT) Pathologist [facility] Sodium, Ur 40.0 mEq/L [facility] Urine specimen (specimen) 10/27/2008 0:15 EDT 10/27/2008 0:19 EDT us Christopher Ga MD URINALYSIS ORDERABLES Final Result Performing Organization Address [facility] de Phone Number [facility] [address] [place] [address] * (ABNORMAL) OSMOLALITY,URINE (10/27/2008 0:15 EDT) Osmolality, Ur 201(L) 392 - 1090 MOS/KG [facility] Urine specimen (specimen) 10/27/2008 0:15 EDT 10/27/2008 0:19 EDT us Christopher Ga MD URINALYSIS ORDERABLES Final Result Performing Organization Address [facility] de Phone Number [facility] [address] [place] [address] * (ABNORMAL) SODIUM (10/26/2008 22:48 EDT) Sodium 161(HH) 136 - 145 mEq/L [facility] Comment:Sample retested, res ult confirmed Blood specimen (specimen) 10/26/2008 22:48 EDT 10/26/2008 23:00 EDT us Christopher Ga MD CHEMISTRY & BLOOD GAS ORDER LYNDSEY Final Result Performing Organization Address [facility] de Phone Number [facility] [address] [place] [address] * CORTISOL (10/26/2008 18:41 EDT) Cortisol 23 ug/dl [facility] Comment: 7-9a.m.=4.3-22.4 3-5p.m.=3.1-16.7 10/26/2008 18:4 1 EDT 10/26/2008 18:41 EDT us Christopher Ga MD CHEMISTRY & BLOOD GAS ORDER LYNDSEY Final Result Performing Organization Address [facility] Co de Phone Number [facility] [address] [place] [address] * (ABNORMAL) SODIUM (10/26/2008 18:41 EDT) Sodium 154(H) 136 - 145 mEq/L [facility] Blood specimen (specimen) 10/26/2008 18:41 EDT 10/26/2008 18:41 EDT us Christopher Ga MD CHEMISTRY & BLOOD GAS ORDER LYNDSEY Final Result Performing Organization Address [facility] de Phone Number [facility] [address] [place] [address] * (ABNORMAL) SODIUM (10/26/2008 9:59 EDT) Sodium 148(H) 136 - 145 mEq/L [facility] Blood specimen (specimen) 10/26/2008 9:59 EDT 10/26/2008 10:02 EDT us Christopher Ga MD CHEMISTRY & BLOOD GAS ORDER LYNDSEY Final Result Performing Organization Address [facility] de Phone Number [facility] [address] [place] [address] * CORTISOL (10/26/2008 6:12 EDT) Pathologist [facility] Cortisol 13 ug/dl [facility] Comment: 7-9a.m.=4.3-22.4 3-5p.m.=3.1-16.7 10/26/2008 6:12 EDT 10/26/2008 6:24 EDT us Christopher Ga MD CHEMISTRY & BLOOD GAS ORDER LYNDSEY Final Result Performing Organization Address [facility] de Phone Number [facility] [address] [place] [address] * TESTS ADDED BY PHONE (10/26/2008 6:12 EDT) Tests to be added STAT [facility] Who Called TAMIE M3 FOR DR CHARLEEN GARCIA Location Code M3 [facility] Read Back/Confirmed ? YES [facility] 10/26/2008 6:12 EDT 10/26/2008 6:24 EDT us Christopher Ga MD CHEMISTRY & BLOOD GAS ORDER LYNDSEY Final Result [facility] [address] [place] [address] * (ABNORMAL) HEMAGRAM AND DIFFERENTIAL (10/26/2008 6:12 [...] Organization Address [facility] Phone Number [facility] [address] [place] [address] * GLUCOSE, SERUM (10/26/2008 6:12 EDT) Pathologist [facility] Glucose, Serum 71 70 - 100 mg/dl [facility] Blood specimen (specimen) 10/26/2008 6:12 EDT 10/26/2008 6:24 EDT us Christopher Ga MD CHEMISTRY & BLOOD GAS ORDER LYNDSEY Final Result Performing Organization Address [facility] Phone Number [facility] [address] [place] [address] * (ABNORMAL) ELECTROLYTES (10/26/2008 6:12 EDT) Pathologist [facility] Sodium 148(H) 136 - 145 mEq/L [facility] Potassium 3.6 3.5 - 5.0 mEq/L [facility] Chloride 113(H) 96 - 110 mEq/L [facility] CO2 29 24 - 32 mEq/L [facility] Blood specimen (specimen) 10/26/2008 6:12 EDT 10/26/2008 6:24 EDT us Christopher Ga MD CHEMISTRY & BLOOD GAS ORDER LYNDSEY Final Result Performing Organization Address [facility] Phone Number [facility] [address] [place] [address] * CREATININE (10/26/2008 6:12 EDT) Creatinine 0.90 0.7 - 1.5 mg/dl [facility] GFR, Calculated >60 ml/min/1.7 3m2 [facility] Blood specimen (specimen) 10/26/2008 6:12 EDT 10/26/2008 6:24 EDT us Christopher Ga MD CHEMISTRY & BLOOD GAS ORDER LYNDSEY Final Result Performing Organization Address [facility] de Phone Number [facility] [address] [place] [address] * BUN (10/26/2008 6:12 EDT) BUN 20 10 - 26 mg/dl [facility] Blood specimen (specimen) 10/26/2008 6:12 EDT 10/26/2008 6:24 EDT us Christopher Ga MD CHEMISTRY & BLOOD GAS ORDER LYNDSEY Final Result Performing Organization Address [facility] Phone Number [facility] [address] [place] [address] * GLUCOSE, SERUM (10/26/2008 1:57 EDT) Glucose, Serum 71 70 - 100 mg/dl [facility] Blood specimen (specimen) 10/26/2008 1:57 EDT 10/26/2008 2:01 EDT us Christopher Ga MD CHEMISTRY & BLOOD GAS ORDER LYNDSEY Final Result Performing Organization Address [facility] de Phone Number [facility] [address] [place] [address] * (ABNORMAL) SODIUM (10/26/2008 1:57 EDT) Sodium 148(H) 136 - 145 mEq/L [facility] Blood specimen (specimen) 10/26/2008 1:57 EDT 10/26/2008 2:01 EDT Christopher Ga MD CHEMISTRY & BLOOD GAS ORDER LYNDSEY Final Result Performing Organization Address [facility] Co de Phone Number [facility] [address] [place] [address] * (ABNORMAL) SODIUM (10/25/2008 22:00 EDT) Sodium 147(H) 136 - 145 mEq/L [facility] Blood specimen (specimen) 10/25/2008 22:00 EDT 10/25/2008 22:08 EDT us Christopher Ga MD CHEMISTRY & BLOOD GAS ORDER LYNDSEY Final Result Performing Organization Address [facility] de Phone Number [facility] [address] [place] [address] * GLUCOSE, GLUCOMETER (10/25/2008 20:59 EDT) Glucose, Fingerstick 93 70 - 100 mg/dl [facility] Procurement Specialist ID [id number] Test Performed by Nursing Services [facility] 10/25/2008 20:5 9 EDT 10/25/2008 23:05 EDT us Christopher Ga MD CHEMISTRY & BLOOD GAS ORDER LYNDSEY Final Result Performing Organization Address [facility] de Phone Number [facility] [address] [place] [address] * HOLD GREEN TOP (10/25/2008 20:05 EDT) Hold Green Top Hold for further testing. Specimen will be held for 5 days. [facility] 10/25/2008 20:0 5 EDT 10/25/2008 20:18 EDT us Christopher Ga MD LAB INFO SERVICE AND SUPPOR T & PHONE RESULT Final Result Performing Organization Address [facility] Co de Phone Number [facility] [address] [place] [address] * GLUCOSE, SERUM (10/25/2008 20:05 EDT) Glucose, Serum 73 70 - 100 mg/dl [facility] Blood specimen (specimen) 10/25/2008 20:05 EDT 10/25/2008 20:18 EDT us Christopher Ga MD CHEMISTRY & BLOOD GAS ORDER LYNDSEY Final Result Performing Organization Address [facility] de Phone Number [facility] [address] [place] [address] * (ABNORMAL) ELECTROLYTES (10/25/2008 20:05 EDT) Sodium [...] de Phone Number [facility] [address] [place] [address] * CREATININE (10/25/2008 20:05 EDT) Pathologist [facility] Creatinine 0.80 0.7 - 1.5 mg/dl [facility] GFR, Calculated >60 ml/min/1.7 3m2 [facility] Blood specimen (specimen) 10/25/2008 20:05 EDT 10/25/2008 20:18 EDT us Christopher Ga MD CHEMISTRY & BLOOD GAS ORDER LYNDSEY Final Result Performing Organization Address [facility] de Phone Number [facility] [address] [place] [address] * BUN (10/25/2008 20:05 EDT) BUN 16 10 - 26 mg/dl [facility] Blood specimen (specimen) 10/25/2008 20:05 EDT 10/25/2008 20:18 EDT us Christopher Ga MD CHEMISTRY & BLOOD GAS ORDER LYNDSEY Final Result Performing Organization Address [facility] de Phone Number [facility] [address] [place] [address] * (ABNORMAL) SODIUM (10/25/2008 18:00 EDT) Sodium 148(H) 136 - 145 mEq/L [facility] Blood specimen (specimen) 10/25/2008 18:00 EDT 10/25/2008 18:02 EDT us Christopher Ga MD CHEMISTRY & BLOOD GAS ORDER LYNDSEY Final Result Performing Organization Address [facility] Phone Number [facility] [address] [place] [address] * (ABNORMAL) SODIUM (10/25/2008 16:00 EDT) Sodium 148(H) 136 - 145 mEq/L [facility] Blood specimen (specimen) 10/25/2008 16:00 EDT 10/25/2008 16:24 EDT us Christopher Ga MD CHEMISTRY & BLOOD GAS ORDER LYNDSEY Final Result Performing Organization Address [facility] Phone Number [facility] [address] [place] [address] * PORTABLE CHEST 1 VIEW (10/25/2008 12:50 [...] Christopher Ga MD IMG DIAGNOSTIC IMAGING ORDEmerald [facility] Final Result * GLUCOSE, SERUM (10/25/2008 12:45 EDT) Glucose, Serum 83 70 - 100 mg/dl [facility] 10/25/2008 12:4 5 EDT 10/25/2008 12:56 EDT us Christopher Ga MD CHEMISTRY & BLOOD GAS ORDER LYNDSEY Final Result [facility] [address] [place] [address] * (ABNORMAL) SODIUM (10/25/2008 12:45 EDT) Sodium 148(H) 136 - 145 mEq/L [facility] Blood specimen (specimen) 10/25/2008 12:45 EDT 10/25/2008 12:56 EDT us Christopher Ga MD CHEMISTRY & BLOOD GAS ORDER LYNDSEY Final Result Performing Organization Address [facility] Phone Number [facility] [address] [place] [address] * (ABNORMAL) SODIUM (10/25/2008 10:00 EDT) Sodium 146(H) 136 - 145 mEq/L [facility] Blood specimen (specimen) 10/25/2008 10:00 EDT 10/25/2008 10:07 EDT us Christopher Ga MD CHEMISTRY & BLOOD GAS ORDER LYNDSEY Final Result Performing Organization Address [facility] Phone Number [facility] [address] [place] [address] * OSMOLALITY,URINE (10/25/2008 8:06 EDT) Osmolality, Ur 513 392 - 1090 MOS/KG [facility] 10/25/2008 8:06 EDT 10/25/2008 8:06 EDT us Christopher Ga MD URINALYSIS ORDERABLES Final Result Performing Organization Address [facility] Phone Number [facility] [address] [place] [address] * SODIUM, URINE RANDOM (10/25/2008 8:06 EDT) Sodium, Ur <5.0 mEq/L [facility] 10/25/2008 8:06 EDT 10/25/2008 8:06 EDT us Christopher Ga MD URINALYSIS ORDERABLES Final Result Performing Organization Address [facility] de Phone Number [facility] [address] [place] [address] * (ABNORMAL) OSMOLALITY (10/25/2008 8:04 EDT) Osmolality Cintia 310(H) 280 - 300 MOS/KG [facility] Blood specimen (specimen) 10/25/2008 8:04 EDT 10/25/2008 8:04 EDT us Christopher Ga MD CHEMISTRY & BLOOD GAS ORDER LYNDSEY Final Result Performing Organization Address [facility] de Phone Number [facility] [address] [place] [address] * GLUCOSE, SERUM (10/25/2008 8:04 EDT) Pathologist [facility] Glucose, Serum 80 70 - 100 mg/dl [facility] Blood specimen (specimen) 10/25/2008 8:04 EDT 10/25/2008 8:04 EDT us Christopher Ga MD CHEMISTRY & BLOOD GAS ORDER LYNDSEY Final Result Performing Organization Address [facility] Phone Number [facility] [address] [place] [address] * (ABNORMAL) ELECTROLYTES (10/25/2008 8:04 EDT) Pathologist [facility] Sodium 148(H) 136 - 145 mEq/L [facility] [...] de Phone Number [facility] [address] [place] [address] * (ABNORMAL) GLUCOSE, SERUM (10/25/2008 4:49 EDT) Pathologist [facility] Glucose, Serum 101(H) 70 - 100 mg/dl [facility] 10/25/2008 4:49 EDT 10/25/2008 4:49 EDT us Christopher Ga MD CHEMISTRY & BLOOD GAS ORDER LYNDSEY Final Result Performing Organization Address [facility] de Phone Number [facility] [address] [place] [address] * POTASSIUM (10/25/2008 4:49 EDT) Potassium 3.7 3.5 - 5.0 mEq/L [facility] 10/25/2008 4:49 EDT 10/25/2008 4:49 EDT us Christopher Ga MD CHEMISTRY & BLOOD GAS ORDER LYNDSEY Final Result Performing Organization Address [facility] Phone Number [facility] [address] [place] [address] * CO2 (10/25/2008 4:49 EDT) CO2 25 24 - 32 mEq/L [facility] 10/25/2008 4:49 EDT 10/25/2008 4:49 EDT us Christopher Ga MD CHEMISTRY & BLOOD GAS ORDER LYNDSEY Final Result Performing Organization Address [facility] de Phone Number [facility] [address] [place] [address] * (ABNORMAL) CHLORIDE (10/25/2008 4:49 EDT) Chloride 115(H) 96 - 110 mEq/L [facility] 10/25/2008 4:49 EDT 10/25/2008 4:49 EDT us Christopher Ga MD CHEMISTRY & BLOOD GAS ORDER LYNDSEY Final Result Performing Organization Address [facility] de Phone Number [facility] [address] [place] [address] * (ABNORMAL) OSMOLALITY (10/25/2008 4:49 EDT) Osmolality Cintia 309(H) 280 - 300 MOS/KG [facility] 10/25/2008 4:49 EDT 10/25/2008 4:49 EDT us Christopher Ga MD CHEMISTRY & BLOOD GAS ORDER LYNDSEY Final Result Performing Organization Address [facility] Phone Number [facility] [address] [place] [address] * (ABNORMAL) SODIUM (10/25/2008 4:49 EDT) Sodium 148(H) 136 - 145 mEq/L [facility] 10/25/2008 4:49 EDT 10/25/2008 4:49 EDT us Christopher Ga MD CHEMISTRY & BLOOD GAS ORDER LYNDSEY Final Result Performing Organization Address [facility] Phone Number [facility] [address] [place] [address] * (ABNORMAL) CREATININE (10/25/2008 4:49 EDT) Pathologist [facility] Creatinine 0.69(L) 0.7 - 1.5 mg/dl [facility] GFR, Calculated >60 ml/min/1.7 3m2 [facility] 10/25/2008 4:49 EDT 10/25/2008 4:49 EDT us Christopher Ga MD CHEMISTRY & BLOOD GAS ORDER LYNDSEY Final Result Performing Organization Address [facility] de Phone Number [facility] [address] [place] [address] * BUN (10/25/2008 4:49 EDT) BUN 10 10 - 26 mg/dl [facility] 10/25/2008 4:49 EDT 10/25/2008 4:49 EDT us Christopher Ga MD CHEMISTRY & BLOOD GAS ORDER LYNDSEY Final Result Performing Organization Address [facility] de Phone Number [facility] [address] [place] [address] * (ABNORMAL) OSMOLALITY,URINE (10/25/2008 3:59 EDT) Osmolality, Ur 143(L) 392 - 1090 MOS/KG [facility] 10/25/2008 3:59 EDT 10/25/2008 3:59 EDT us Christopher Ga MD URINALYSIS ORDERABLES Final Result Performing Organization Address [facility] de Phone Number [facility] [address] [place] [address] * SODIUM, URINE RANDOM (10/25/2008 3:59 EDT) Sodium, Ur <5.0 mEq/L [facility] 10/25/2008 3:59 EDT 10/25/2008 3:59 EDT us Christopher aG MD URINALYSIS ORDERABLES Final Result Performing Organization Address [facility] de Phone Number [facility] [address] [place] [address] * OSMOLALITY,URINE (10/25/2008 0:15 EDT) Osmolality, Ur 413 392 - 1090 MOS/KG [facility] 10/25/2008 0:15 EDT 10/25/2008 0:15 EDT us Christopher Ga MD URINALYSIS ORDERABLES Final Result Performing Organization Address [facility] de Phone Number [facility] [address] [place] [address] * SODIUM, URINE RANDOM (10/25/2008 0:15 EDT) Sodium, Ur 9.0 mEq/L [facility] 10/25/2008 0:15 EDT 10/25/2008 0:15 EDT us Christopher Ga MD URINALYSIS ORDERABLES Final Result Performing Organization Address [facility] Phone Number [facility] [address] [place] [address] * (ABNORMAL) GLUCOSE, SERUM (10/25/2008 0:15 EDT) Glucose, Serum 113(H) 70 - 100 mg/dl [facility] 10/25/2008 0:15 EDT 10/25/2008 0:15 EDT us Christopher Ga MD CHEMISTRY & BLOOD GAS ORDER LYNDSEY Final Result Performing Organization Address [facility] Phone Number [facility] [address] [place] [address] * (ABNORMAL) OSMOLALITY (10/25/2008 0:15 EDT) Osmolality Cintia 309(H) 280 - 300 MOS/KG [facility] 10/25/2008 0:15 EDT 10/25/2008 0:15 EDT us Christopher Ga MD CHEMISTRY & BLOOD GAS ORDER LYNDSEY Final Result Performing Organization Address [facility] Phone Number [facility] [address] [place] [address] * (ABNORMAL) ELECTROLYTES (10/25/2008 0:15 EDT) Sodium [...] LYNDSEY Final Result Performing Organization Address [facility] Phone Number [facility] [address] [place] [address] * SODIUM, URINE RANDOM (10/24/2008 20:00 EDT) Sodium, Ur 92.0 mEq/L [facility] 10/24/2008 20:0 0 EDT 10/24/2008 20:23 EDT us Christopher Ga MD URINALYSIS ORDERABLES Final Result Performing Organization Address [facility] de Phone Number [facility] [address] [place] [address] * OSMOLALITY,URINE (10/24/2008 20:00 EDT) Osmolality, Ur 594 392 - 1090 MOS/KG [facility] 10/24/2008 20:0 0 EDT 10/24/2008 20:23 EDT us Christopher Ga MD URINALYSIS ORDERABLES Final Result Performing Organization Address [facility] Phone Number [facility] [address] [place] [address] * (ABNORMAL) OSMOLALITY (10/24/2008 20:00 EDT) Osmolality Cintia 319(H) 280 - 300 MOS/KG [facility] 10/24/2008 20:0 0 EDT 10/24/2008 20:20 EDT Christopher Ga MD CHEMISTRY & BLOOD GAS ORDER LYNDSEY Final Result Performing Organization Address [facility] de Phone Number [facility] [address] [place] [address] * SODIUM, URINE RANDOM (10/23/2008 22:30 EDT) Sodium, Ur 70.0 mEq/L [facility] Comment:Sample retested, res ult confirmed 10/23/2008 22:3 0 EDT 10/23/2008 22:33 EDT us Christopher Ga MD URINALYSIS ORDERABLES Final Result Performing Organization Address [facility] de Phone Number [facility] [address] [place] [address] * OSMOLALITY, URINE (10/23/2008 22:30 EDT) Osmolality, Ur 426 392 - 1090 MOS/KG [facility] 10/23/2008 22:3 0 EDT 10/23/2008 22:33 EDT us Christopher Ga MD URINALYSIS ORDERABLES Final Result Performing Organization Address [facility] de Phone Number [facility] [address] [place] [address] * (ABNORMAL) URINALYSIS, CHEMICAL (10/23/2008 22:30 EDT) Color, UA Yellow [facility] Clarity, UA Clear [facility] Glucose, UA Norm NORM [facility] Bilirubin, UA Neg NEG [facility] Ketones, UA Neg NEG [facility] Specific [place], Urine 1.015 1.005 - 1.02 [facility] [...] URINALYSIS ORDERABLES Final Result Performing Organization Address [facility] de Phone Number [facility] [address] [place] [address] * URINE MICROSCOPIC (10/23/2008 22:30 EDT) WBC, [...] URINALYSIS ORDERABLES Final Result Performing Organization Address [facility] de Phone Number [facility] [address] [place] [address] * (ABNORMAL) POTASSIUM (10/23/2008 20:49 EDT) Potassium 6.1(HH) 3.5 - 5.0 mEq/L [facility] Comment: Hemolysis may elevate potassium result. Slight hemolysis QNS to repeat 10/23/2008 20:4 9 EDT 10/23/2008 20:54 EDT us Christopher Ga MD CHEMISTRY & BLOOD GAS ORDER LYNDSEY Final Result Performing Organization Address [facility] de Phone Number [facility] [address] [place] [address] * CREATININE (10/23/2008 20:49 EDT) Creatinine 0.80 0.7 - 1.5 mg/dl [facility] Comment:Slight hemolysis GFR, Calculated >60 ml/min/1.7 3m2 [facility] Comment:Slight hemolysis 10/23/2008 20:4 9 EDT 10/23/2008 20:54 EDT us Christopher Ga MD CHEMISTRY & BLOOD GAS ORDER LYNDSEY Final Result Performing Organization Address [facility] Co de Phone Number [facility] [address] [place] [address] * BUN (10/23/2008 20:49 EDT) Pathologist [facility] BUN 13 10 - 26 mg/dl [facility] Comment: Results may be affected due to hemolysis. Slight hemolysis 10/23/2008 20:4 9 EDT 10/23/2008 20:54 EDT us Christopher Ga MD CHEMISTRY & BLOOD GAS ORDER LYNDSEY Final Result Performing Organization Address [facility] de Phone Number [facility] [address] [place] [address] * (ABNORMAL) SODIUM (10/23/2008 20:49 EDT) [facility] Sodium 153(H) 136 - 145 mEq/L [facility] Comment:Slight hemolysis 10/23/2008 20:4 9 EDT 10/23/2008 20:54 EDT us Christopher Ga MD CHEMISTRY & BLOOD GAS ORDER LYNDSEY Final Result Performing Organization Address [facility] de Phone Number [facility] [address] [place] [address] * (ABNORMAL) ELECTROLYTES (10/23/2008 16:00 EDT) [facility] Sodium 150(H) 136 - 145 mEq/L [facility] Potassium 4.0 3.5 - 5.0 mEq/L [facility] Chloride 117(H) 96 - 110 mEq/L [facility] CO2 22(L) 24 - 32 mEq/L [facility] 10/23/2008 16:0 0 EDT 10/23/2008 16:07 EDT us Christopher Ga MD CHEMISTRY & BLOOD GAS ORDER LYNDSEY Final Result Performing Organization Address [facility] de Phone Number [facility] [address] [place] [address] * GLUCOSE, SERUM (10/23/2008 8:45 EDT) [facility] Glucose, Serum 79 70 - 100 mg/dl [facility] 10/23/2008 8:45 EDT 10/23/2008 9:01 EDT us Thad Marroquin MD MSc CHEMISTRY & BLOOD GAS ORDER LYNDSEY Final Result Performing Organization Address [facility] de Phone Number [facility] [address] [place] [address] * CREATININE (10/23/2008 8:45 EDT) Pathologist [facility] Creatinine 0.80 0.7 - 1.5 mg/dl [facility] GFR, Calculated >60 ml/min/1.7 3m2 [facility] 10/23/2008 8:45 EDT 10/23/2008 9:01 EDT Thad Marroquin MD, MSc CHEMISTRY & BLOOD GAS ORDER LYNDSEY Final Result Performing Organization Address [facility] de Phone Number [facility] [address] [place] [address] * BUN (10/23/2008 8:45 EDT) Pathologist [facility] BUN 10 10 - 26 mg/dl [facility] 10/23/2008 8:45 EDT 10/23/2008 9:01 EDT us Thad Marroquin MD, MSc CHEMISTRY & BLOOD GAS ORDER LYNDSEY Final Result Performing Organization Address [facility] de Phone Number [facility] [address] [place] [address] * (ABNORMAL) ELECTROLYTES (10/23/2008 8:45 EDT) Pathologist [facility] Sodium 148(H) 136 - 145 mEq/L [facility] Potassium 3.4(L) 3.5 - 5.0 mEq/L [facility] Chloride 117(H) 96 - 110 mEq/L [facility] CO2 22(L) 24 - 32 mEq/L [facility] 10/23/2008 8:45 EDT 10/23/2008 9:01 EDT us Thad Marroquin MD MSc CHEMISTRY & BLOOD GAS ORDER LYNDSEY Final Result [facility] [address] [place] [address] * (ABNORMAL) HEMAGRAM AND DIFFERENTIAL (10/23/2008 8:45 [...] Organization Address [facility] Co de Phone Number [facility] [address] [place] [address] * GLUCOSE, SERUM (10/23/2008 6:15 EDT) Glucose, Serum 80 70 - 100 mg/dl [facility] 10/23/2008 6:15 EDT 10/23/2008 6:35 EDT us Thad Marroquin MD, MSc CHEMISTRY & BLOOD GAS ORDER LYNDSEY Final Result Performing Organization Address [facility] de Phone Number [facility] [address] [place] [address] * CREATININE (10/23/2008 6:15 EDT) Creatinine 0.80 0.7 - 1.5 mg/dl [facility] GFR, Calculated >60 ml/min/1.7 3m2 [facility] 10/23/2008 6:15 EDT 10/23/2008 6:35 EDT us Thad Marroquin MD, MSc CHEMISTRY & BLOOD GAS ORDER LYNDSEY Final Result Performing Organization Address [facility] Co de Phone Number [facility] [address] [place] [address] * BUN (10/23/2008 6:15 EDT) BUN 11 10 - 26 mg/dl [facility] 10/23/2008 6:15 EDT 10/23/2008 6:35 EDT us Thad Marroquin MD, MSc CHEMISTRY & BLOOD GAS ORDER LYNDSEY Final Result Performing Organization Address [facility] Co de Phone Number [facility] [address] [place] [address] * (ABNORMAL) ELECTROLYTES (10/23/2008 6:15 EDT) Sodium [...] LYNDSEY Final Result [facility] [address] [place] [address] * (ABNORMAL) HEMAGRAM AND DIFFERENTIAL (10/23/2008 6:15 EDT) Pathologist [facility] WBC 1.91(L) 4.0 - 10.4 K/cmm [facility] [...] Organization Address [facility] Co de Phone Number [facility] [address] [place] [address] * GLUCOSE, GLUCOMETER (10/23/2008 6:02 EDT) Glucose, Fingerstick 89 70 - 100 mg/dl [facility] Procurement Specialist ID [id number] Test Performed by Nursing Services [facility] 10/23/2008 6:02 EDT 10/25/2008 4:28 EDT us Christopher Ga MD CHEMISTRY & BLOOD GAS ORDER LYNDSEY Final Result Performing Organization Address [facility] de Phone Number [facility] [address] [place] [address] * (ABNORMAL) BLOOD GAS, G3 ISTAT (10/23/2008 [...] [facility] Sample Type VENOUS [facility]IS[facility] paid internship ID [id number] Test Performed by Respiratory For non-arterial reference ranges, please see ISTAT procedure. [facility] 10/23/2008 5:49 EDT 10/23/2008 5:58 EDT us Thad Marroquin MD, MSc CHEMISTRY & BLOOD GAS ORDER LYNDSEY Final Result Performing Organization Address [facility] de Phone Number [facility] [address] [place] [address] * (ABNORMAL) BLOOD GAS, G3 ISTAT (10/23/2008 [...] LAB Sample Type NOT GIVEN [facility] [place] [id number] Test performed by Chemistry [facility] 10/23/2008 2:13 EDT 10/23/2008 2:19 EDT Result Devroah Marroquin MD, MSc CHEMISTRY & BLOOD GAS ORDER LYNDSEY Final Result Performing Organization Address [facility] de Phone Number [facility] [address] [place] [address] * (ABNORMAL) ELECTROLYTES (10/23/2008 2:00 EDT) Sodium [...] Organization Address [facility] Co de Phone Number [facility] [address] [place] [address] * ELECTROLYTES (10/23/2008 2:00 EDT) 10/23/2008 2:00 EDT 10/23/2008 2:07 EDT us Thad Marroquin MD MSc CHEMISTRY & BLOOD GAS ORDER LYNDSEY Final Result Performing Organization Address [facility] de Phone Number [facility] [address] [place] [address] * BACTERIAL CULTURE, BLOOD (10/23/2008 2:00 EDT) Specimen Description Blood Right Arm Total volume of blood collected: 6 ml Pediatric bottle received Volume of blood collected may not be adequate for detection of bacteremia/se pticemia. [facility] Result No growth [facility] Report Status Final [id number] [facility] 10/23/2008 2:00 EDT 10/23/2008 7:45 EDT us Thad Marroquin MD MSc MICROBIOLOGY - GENERAL PSYCHIATRIC Final Result Performing Organization Address [facility] de Phone Number [facility] [address] [place] [address] * (ABNORMAL) GLUCOSE, GLUCOMETER (10/22/2008 21:12 EDT) Glucose, Fingerstick 122(H) 70 - 100 mg/dl [facility] Procurement Specialist ID [id number] Test Performed by Nursing Services [facility] 10/22/2008 21:1 2 EDT 10/22/2008 21:23 EDT us Christopher Ga MD CHEMISTRY & BLOOD GAS ORDER LYNDSEY Final Result Performing Organization Address [facility] de Phone Number [facility] [address] [place] [address] * (ABNORMAL) GLUCOSE, SERUM (10/22/2008 18:07 EDT) Glucose, Serum 109(H) 70 - 100 mg/dl [facility] 10/22/2008 18:0 7 EDT 10/22/2008 18:07 EDT us Christopher Ga MD CHEMISTRY & BLOOD GAS ORDER LYNDSEY Final Result Performing Organization Address [facility] de Phone Number [facility] [address] [place] [address] * ELECTROLYTES (10/22/2008 18:07 EDT) Sodium 141 [...] de Phone Number [facility] [address] [place] [address] * (ABNORMAL) ELECTROLYTES (10/22/2008 11:15 EDT) Sodium [...] Organization Address [facility] de Phone Number [facility] [address] [place] [address] * (ABNORMAL) GLUCOSE, GLUCOMETER (10/22/2008 11:05 EDT) Glucose, Fingerstick 114(H) 70 - 100 mg/dl [facility] Procurement Specialist ID [id number] Test Performed by Nursing Services [facility] 10/22/2008 11:0 5 EDT 10/22/2008 23:16 EDT Thad Marroquin MD MSc CHEMISTRY & BLOOD GAS ORDER LYNDSEY Final Result Performing Organization Address [facility] Co de Phone Number [facility] [address] [place] [address] * (ABNORMAL) ELECTROLYTES (10/22/2008 7:36 EDT) Sodium [...] Organization Address [facility] de Phone Number [facility] [address] [place] [address] * (ABNORMAL) GLUCOSE, GLUCOMETER (10/22/2008 7:26 EDT) Glucose, Fingerstick 124(H) 70 - 100 mg/dl [facility] Procurement Specialist ID [id number] Test Performed by Nursing Services [facility] 10/22/2008 7:26 EDT 10/22/2008 23:16 EDT Thad Marroquin MD MSc CHEMISTRY & BLOOD GAS ORDER LYNDSEY Final Result Performing Organization Address [facility] Co de Phone Number [facility] [address] [place] [address] * GLUCOSE, SERUM (10/22/2008 3:29 EDT) Glucose, Serum 95 70 - 100 mg/dl [facility] 10/22/2008 3:29 EDT 10/22/2008 3:29 EDT us Christopher Ga MD CHEMISTRY & BLOOD GAS ORDER LYNDSEY Final Result Performing Organization Address [facility] de Phone Number [facility] [address] [place] [address] * (ABNORMAL) PTT (10/22/2008 3:29 EDT) PTT 39(H) 20 - 35 secs [facility] Comment:Therapeutic Heparin range: 60-100 seconds 10/22/2008 3:29 EDT 10/22/2008 3:29 EDT us Christopher Ga MD HEMATOLOGY & PF4 ORDERABLES Final Result Performing Organization Address [facility] Phone Number [facility] [address] [place] [address] * (ABNORMAL) PROTIME (10/22/2008 3:29 EDT) Pro [...] PF4 ORDERABLES Final Result Performing Organization Address [facility] de Phone Number [facility] [address] [place] [address] * PHOSPHORUS (10/22/2008 3:29 EDT) Phosphorus 3.6 2.5 - 4.5 mg/dl [facility] 10/22/2008 3:29 EDT 10/22/2008 3:29 EDT us Christopher Ga MD CHEMISTRY & BLOOD GAS ORDER LYNDSEY Final Result Performing Organization Address [facility] de Phone Number [facility] [address] [place] [address] * (ABNORMAL) MAGNESIUM (10/22/2008 3:29 EDT) Magnesium 1.4(L) 1.7 - 2.8 mg/dl [facility] 10/22/2008 3:29 EDT 10/22/2008 3:29 EDT us Christopher Ga MD CHEMISTRY & BLOOD GAS ORDER LYNDSEY Final Result Performing Organization Address [facility] de Phone Number [facility] [address] [place] [address] * (ABNORMAL) CREATININE (10/22/2008 3:29 EDT) Creatinine 0.60(L) 0.7 - 1.5 mg/dl [facility] GFR, Calculated >60 ml/min/1.7 3m2 [facility] 10/22/2008 3:29 EDT 10/22/2008 3:29 EDT us Christopher Ga MD CHEMISTRY & BLOOD GAS ORDER LYNDSEY Final Result Performing Organization Address [facility] de Phone Number [facility] [address] [place] [address] * (ABNORMAL) BUN (10/22/2008 3:29 EDT) BUN 6(L) 10 - 26 mg/dl [facility] 10/22/2008 3:29 EDT 10/22/2008 3:29 EDT us Christopher Ga MD CHEMISTRY & BLOOD GAS ORDER LYNDSEY Final Result Performing Organization Address [facility] Co de Phone Number [facility] [address] [place] [address] * (ABNORMAL) ELECTROLYTES (10/22/2008 3:29 EDT) Sodium [...] Organization Address [facility] de Phone Number [facility] [address] [place] [address] * (ABNORMAL) HEMAGRAM (10/22/2008 3:29 EDT) WBC 3.60(L) 4.0 - 10.4 K/cmm [facility] RBC 4.25(L) 4.36 - 5.78 M/cmm [facility] Hemoglobin 10.8(L) 13.8 - 17.3 gm/dl [facility] HCT 31.8(L) 39.5 - 50.2 % [facility] MCV 75(L) 81 - 95 fl [facility] MCH 25.5(L) 27.6 - 33.0 pg [facility] MCHC 34.1 32.8 - 36.4 gm/dl [facility] PLT 111(L) 141 - 320 K/cmm [facility] RDW-CV 17.1(H) 11.8 - 14.1 % [facility] 10/22/2008 3:29 EDT 10/22/2008 3:29 EDT us Christopher Ga MD HEMATOLOGY & PF4 ORDERABLES Final Result Performing Organization Address [facility] de Phone Number [facility] [address] [place] [address] * (ABNORMAL) OSMOLALITY, URINE (10/22/2008 0:43 EDT) Osmolality, Ur 64(L) 392 - 1090 MOS/KG [facility] 10/22/2008 0:43 EDT 10/22/2008 0:43 EDT us Christopher Ga MD URINALYSIS ORDERABLES Final Result Performing Organization Address [facility] de Phone Number [facility] [address] [place] [address] * SODIUM, URINE RANDOM (10/22/2008 0:43 EDT) Pathologist [facility] Sodium, Ur <5.0 mEq/L [facility] 10/22/2008 0:43 EDT 10/22/2008 0:43 EDT us Christopher Ga MD URINALYSIS ORDERABLES Final Result Performing Organization Address [facility] Phone Number [facility] [address] [place] [address] * GLUCOSE, GLUCOMETER (10/22/2008 0:19 EDT) [facility] Glucose, Fingerstick 87 70 - 100 mg/dl [facility] Procurement Specialist ID [id number] Test Performed by Nursing Services [facility] 10/22/2008 0:19 EDT 10/22/2008 23:16 EDT us Thad Marroquin MD MSc CHEMISTRY & BLOOD GAS ORDER LYNDSEY Final Result Performing Organization Address [facility] Phone Number [facility] [address] [place] [address] * (ABNORMAL) OSMOLALITY (10/22/2008 0:00 EDT) [facility] Osmolality [place] 273(L) 280 - 300 MOS/KG [facility] 10/22/2008 10/22/2008 0:2 2 EDT us Christopher Ga MD CHEMISTRY & BLOOD GAS ORDER LYNDSEY Final Result Performing Organization Address [facility] de Phone Number [facility] [address] [place] [address] * (ABNORMAL) ELECTROLYTES (10/22/2008 0:00 EDT) Sodium 127(L) 136 - 145 mEq/L [facility] Potassium 5.5(H) 3.5 - 5.0 mEq/L [facility] Chloride 101 96 - 110 mEq/L [facility] CO2 21(L) 24 - 32 mEq/L [facility] 10/22/2008 10/22/2008 0:2 2 EDT us Christopher Ga MD CHEMISTRY & BLOOD GAS ORDER LYNDSEY Final Result [facility] [address] [place] [address] documented in this encounter Visit Diagnoses Not on filedocumented in this encounter Care Teams Cargo Supervisor Relationship Specialty Start Date End Date Corin Skinner MD [address] [place] [phone] PCP - General 10/24/08 08/21/09 documented as of this encounter
--- OUTSIDE RECORDS SUMMARY | 2024-08-06 01:02 | XMS_ITS | Encounter Summary ---
Author Organization [facility] Address [address] [place] [address] Care Team Providers Care Hydraulic Rock Drill Operator Name Role Phone Corin Skinner MD Primary Care Provider [phone] Encounter Details Date Type Department Care Team (Late st Contact Info) Description 07/11/2008 Before PRISM Converted Visit (Maple) [facility] - Maple conversion [address] [place] [address] Skyler Edwards [facility] [address] [place] [phone] Social History Tobacco Use Types Packs/Day Years [...] 07/11/2008 July 11, 2008 Yan Demarco M.D. [facility] [address] [place] [address], [address] [place] [address] Demarco, I had the pleasure [...] the family. They have hired a new INSTRUMENT/CONTROL TECHNICIAN who is a male and are [...] by the visiting nurse. Mother knows that [facility] has an order for these injections and [...] Skyler Edwards MD Division of Pediatric Endocrinology [phone] - Skyler Edwards MD P - ROXI Job ID: [id number] Doc ID: [id number] cc: MD Yan Singh MD documented in this encounter Plan of Treatment Upcoming Encounters Date Type Department Care Team (Late st Contact Info) Description 10/01/2024 13:40 EDT Office Visit [facility] Endocrinology - [facility] [address] [place], [place] [phone] Wilder Zaidi, DO [address] [facility] [address] [place] [phone] documented as of this encounter Visit Diagnoses Not on filedocumented in this encounter Care Teams Hydraulic Rock Drill Operator Relationship Specialty Start Date End Date Corin Skinner MD [address] [place] [phone] PCP - General 10/24/08 08/21/09 documented as of this encounter
--- OUTSIDE RECORDS SUMMARY | 2024-08-06 01:02 | XMS_ITS | Encounter Summary ---
Author Organization [facility] Address [address] [place] [address] Care Team Providers Care Sterile Products Processor Name Role Phone Corin Skinner MD Primary Care Provider Encounter Details Date Type Department Care Team (Late st Contact Info) Description 10/21/2008 Before PRISM Converted Visit (Maple) [facility] - Maple conversion [address] [place], [place] [phone] Christopher Ga MD [address] [place] [phone] Social History Tobacco Use Types Packs/Day [...] Visit [facility] Endocrinology - [facility] [address] [place] [address] Wilder Zaidi DO [address] [facility] [address] [place] [phone] documented as of this encounter [...] [facility] Sample Type ARTERIAL [facility] travel agent ID [id number] Test Performed by Respiratory For non-arterial reference ranges, please see ISTAT procedure. [facility] 10/21/2008 16:4 6 EDT 10/22/2008 1:20 EDT us Christopher Ga MD CHEMISTRY & BLOOD GAS ORDER LYNDSEY Final Result [facility] [address] [place] [address] documented in this encounter Visit Diagnoses Not on filedocumented in this encounter Care Teams Sterile Products Processor Relationship Specialty Start Date End Date Corin Skinner MD [address] [place] [phone] PCP - General 10/24/08 08/21/09 documented as of this encounter
--- OUTSIDE RECORDS SUMMARY | 2024-08-06 01:02 | XMS_ITS | Encounter Summary ---
Author Organization [facility] Address [address] [place] [address] Care Team Providers Care Bowl Turner Name Role Phone Unavailable Primary Care Provider Unavailabl e Encounter Details Date Type Department Care Team (Late st Contact Info) Description 07/21/2008 18:45 EST - 07/26/2008 11:59 EST Hospital Encounter [facility] [address] [place], [place] [address] Jodi Parr MD [address] [place] [phone] Skyler Quinteros MD [address] [phone] Discharge Disposition: Home-Health Care Svc Social History [...] [facility] Endocrinology - [address] [phone] Wilder Zaidi, [address] [place] [address] [place] [phone] documented as of this [...] GAS ORDERABLES Final Result Performing Organization Address [facility] [address]/[facility] de Phone Number [facility] [address] [place] [address] * (ABNORMAL) ELECTROLYTES (07/26/2008 8:00 EST) Sodium 150(H) 136 - 145 mEq/L [facility] Potassium 4.1 3.5 - 5.0 mEq/L [facility] Chloride 112(H) 96 - 110 mEq/L [facility] CO2 25 24 - 32 mEq/L [facility] 07/26/2008 8:00 EST 07/26/2008 8:46 EST Skyler Quinteros MD, MSc CHEMISTRY & BLOOD GAS ORDERABLES Final Result Performing Organization Address [facility] de Phone Number [facility] [address] [place] [address] * (ABNORMAL) ELECTROLYTES (07/25/2008 8:10 EST) Sodium 147(H) 136 - 145 mEq/L [facility] Potassium 3.8 3.5 - 5.0 mEq/L [facility] Chloride 110 96 - 110 mEq/L [facility] CO2 23(L) 24 - 32 mEq/L [facility] 07/25/2008 8:10 EST 07/25/2008 8:39 EST Skyler Quinteros MD MSc CHEMISTRY & BLOOD GAS ORDERABLES Final Result Performing Organization Address [facility] [address]/[facility] de Phone Number [facility] [address] [place] [address] * CALCIUM, IONIZED (07/24/2008 16:41 EST) Calcium, Ionized 1.27 1.12 - 1.32 mmol/L [facility] roller bearing inspector [place] [id number] Test performed by Chemistry [facility] 07/24/2008 16:4 1 EST 07/24/2008 16:49 EST Skyler Quinteros MD MSc CHEMISTRY & BLOOD GAS ORDERABLES Final Result Performing Organization Address [facility] de Phone Number [facility] [address] [place] [address] * GLUCOSE, SERUM (07/24/2008 16:00 EST) Glucose, Serum 82 70 - 100 mg/dl [facility] 07/24/2008 16:0 0 EST 07/24/2008 16:36 EST Skyler Quinteros MD MSc CHEMISTRY & BLOOD GAS ORDERABLES Final Result Performing Organization Address [facility] Phone Number [facility] [address] [place] [address] * CALCIUM (07/24/2008 16:00 EST) Calcium 9.2 8.5 - 10.5 mg/dl [facility] Calculated Calcium 10.0 8.5 - 10.5 mg/dl [facility] 07/24/2008 16:0 0 EST 07/24/2008 16:36 EST Skyler Quinteros MD MSc CHEMISTRY & BLOOD GAS ORDERABLES Final Result Performing Organization Address [facility] Phone Number [facility] [address] [place] [address] * (ABNORMAL) ELECTROLYTES (07/24/2008 16:00 EST) Sodium [...] ORDERABLES Final Result Performing Organization Address [facility] de Phone Number [facility] [address] [place] [address] * CALCIUM IONIZED (07/24/2008 16:00 EST) Ionized Calcium Note Sample sent to Lab. [facility] 07/24/2008 16:0 0 EST 07/24/2008 16:36 EST Skyler Quinteros MD MSc CHEMISTRY & BLOOD GAS ORDERABLES Final Result Performing Organization Address [facility] de Phone Number [facility] [address] [place] [address] * (ABNORMAL) ELECTROLYTES (07/24/2008 8:00 EST) Sodium 147(H) 136 - 145 mEq/L [facility] Potassium 3.5 3.5 - 5.0 mEq/L [facility] Chloride 109 96 - 110 mEq/L [facility] CO2 21(L) 24 - 32 mEq/L [facility] 07/24/2008 8:00 EST 07/24/2008 8:28 EST Skyler Quinteros MD MSc CHEMISTRY & BLOOD GAS ORDERABLES Final Result Performing Organization Address [facility] de Phone Number [facility] [address] [place] [address] * WRIST 2 VIEWS (07/22/2008 15:15 EST) [...] ORDERABLES Final Result [facility] [address] [place] [address] * UA WITH MICROSCOPIC (07/22/2008 12:00 EST) Color, UA Yellow [facility] Clarity, UA Clear [facility] Glucose, UA Norm NORM [facility] Bilirubin, UA Neg NEG [facility] Ketones, UA Neg NEG [facility] Specific [place], Urine 1.010 1.005 - 1.02 [facility] [...] Crystals, UA None seen /HPF [facility] Hyaline Casts, UA None seen /LPF [facility] Comment Microscopic results are unreliable on urines unrefrig >2hrs or refrig >8hrs. [facility] Comment Amorphous material present [facility] 07/22/2008 12:0 0 EST 07/22/2008 12:23 EST us Skyler Quinteros MD MSc URINALYSIS ORDERABLES Final Result [facility] [address] [place] [address] * WRIST 2 VIEWS (07/21/2008 20:20 EST) [...]
--- OUTSIDE RECORDS SUMMARY | 2024-08-06 01:02 | XMS_ITS | Encounter Summary ---
Author Organization [facility] Address [address] [place] [address] Care Team Providers Care Appraisal Technician Name Role Phone Yan Demarco MD Primary Care Provider [phone] Corin Skinner MD Primary Care Provider [phone] Akil Serrano MD Primary Care Provider [phone] Yossi Torres MD Primary Care Provider [phone] Emilee Cody MD Primary Care Provider + Ren Vaz MD Primary Care Provider [phone] Encounter Details Date Type Department Care Team (Late st Contact Info) Description 10/23/2008 Before PRISM Converted Visit (Maple) [facility] Pediatric Primary Care [address] [phone] Aisha Otero MD 111 [facility], [facility], [place], [address] [place] [address] Social History Tobacco Use Types [...] Office Visit [facility] Endocrinology - [place] [address] [place], [place] [phone] Shonjalyn Wilder Erik, DO [address] [place] [address] documented as of this encounter [...] on filedocumented in this encounter Care Teams Appraisal Technician Relationship Specialty Start Date End Date Yan Demarco MD [address] [place] [address] PCP - General 08/22/09 02/20/10 Corin Skinner MD [address] [place] [phone] PCP - General 10/24/08 08/21/09 Akil Serrano MD 74 [facility] 100 [place], [place] [phone] PCP - General 02/21/10 04/16/11 Yossi Torres MD [address] [place] [phone] PCP - General 04/17/11 03/14/16 Emilee Cody MD [address] [place], [place] [phone] PCP - General 03/15/16 09/29/18 Ren Vaz MD [address] [place] [phone] PCP - General 09/30/18 documented as of this encounter
--- OUTSIDE RECORDS SUMMARY | 2024-08-06 01:02 | XMS_ITS | Encounter Summary ---
Author Organization [facility] Address [address] [place] [address] Care Team Providers Care Coating Mixer Tender Name Role Phone Corin Skinner MD Primary Care Provider [phone] Encounter Details Date Type Department Care Team (Late st Contact Info) Description 10/21/2008 Before PRISM Converted Visit (Maple) [facility] - Maple conversion [address] [place] [address] Emergency, MD Diya Social History Tobacco Use [...] EDT Office Visit [facility] Endocrinology - [facility] [address] [place] [address] Wilder Zaidi, DO 62 [facility] [address] [place] [address] documented as of this encounter [...] ORDER LYNDSEY Final Result Performing Organization Address City/State/[facility] Co de Phone Number [facility] [address] [place] [address] documented in this encounter Visit Diagnoses Not on filedocumented in this encounter Care Teams Coating Mixer Tender Relationship Specialty Start Date End Date Corin Skinner MD [address] [place] [phone] PCP - General 10/24/08 08/21/09 documented as of this encounter
--- OUTSIDE RECORDS SUMMARY | 2024-08-06 01:02 | XMS_ITS | Encounter Summary ---
Author Organization [facility] Address [address] [place] [address] Care Team Providers Care Hardware Designer Name Role Phone Corin Skinner MD Primary Care Provider [phone] Encounter Details Date Type Department Care Team (Late st Contact Info) Description 10/21/2008 Before PRISM Converted Visit (Maple) [facility] - Maple conversion [address] [place] [address] Emergency, MD Diya Social History Tobacco Use [...] EDT Office Visit [facility] Endocrinology - [facility] [address] [place] [address] Wilder Zaidi, DO 62 [facility] [address] [place] [address] documented as of this encounter [...] PF4 ORDERABLES Final Result Performing Organization Address City/State/[facility] Co de Phone Number [facility] [address] [place] [address] documented in this encounter Visit Diagnoses Not on filedocumented in this encounter Care Teams Hardware Designer Relationship Specialty Start Date End Date Corin Skinner MD [address] [place] [phone] PCP - General 10/24/08 08/21/09 documented as of this encounter
--- OUTSIDE RECORDS SUMMARY | 2024-08-06 01:02 | XMS_ITS | Encounter Summary ---
Author Organization [facility] Address [address] [place] [address] Care Team Providers Care Front Desk Receptionist Name Role Phone Corin Skinner MD Primary Care Provider [phone] Encounter Details Date Type Department Care Team (Late st Contact Info) Description 10/21/2008 Before PRISM Converted Visit (Maple) [facility] - Maple conversion [address] [place] [address] Emergency, MD Diya Social History Tobacco Use [...] Visit [facility] Endocrinology - [facility] [address] [place] [address] Wilder Zaidi, DO 62 [facility] [address] [place] [address] documented as of this encounter [...] ORDER LYNDSEY Final Result Performing Organization Address City/State/[facility] Co de Phone Number [facility] [address] [place] [address] documented in this encounter Visit Diagnoses Not on filedocumented in this encounter Care Teams Front Desk Receptionist Relationship Specialty Start Date End Date Corin Skinner MD [address] [place] [phone] PCP - General 10/24/08 08/21/09 documented as of this encounter
--- OUTSIDE RECORDS SUMMARY | 2024-08-06 01:02 | XMS_ITS | Encounter Summary ---
Author Organization [facility] Address [address] [place] [address] Care Team Providers Care Director Business Systems Name Role Phone Yan Demarco MD Primary Care Provider Corin Skinner MD Primary Care Provider [phone] Encounter Details Date Type Department Care Team (Late st Contact Info) Description 10/21/2008 Office Visit [facility] - Map conversion [address] [place] [address] Slava Pineda MD Social History Tobacco Use [...] 3 days of decreased MS. sent from [facility] after being found hyponatremic and hypothermic [...] gm. Pt received stress dose steroid at [facility] (D10 at 60 cc/hr). . Critical [...] Addenda for MIGUEL ANGEL BURGOS JR VisitID: [id number] Date: 10/21/2008 10/21/2008 14:[address] JUAREZ. PT COMING BY AMBULANCE FROM [facility] FOR ED EVAL. [facility] ON ARRIVAL. signed by Landy Garcia 10/21/2008 14:56) 10/21/2008 15:[address] ONTIVEROS. PT COMING FROM [facility]. HYPOTHERMIC R TEMP 87.4 HYPONAUTREMIC NA [...] (unable to determine as pt unresponsive). Treatment GASOLINE TESTER: (Solucortef 100mg IV). Arrived by EMS. Historian: EMS. (Pt presented to [facility] ED with hypotension/ hypothermia and unresponsive. Pt transfered to [facility] ED for pediatric/ neuro consult.). --1638 [...] morse catheter attached to bedside drainage bag (GASOLINE TESTER). (Dr. Pineda at bedside to assess pt. [...] --1712 Philippe Healy R.N. (EKG performed by [facility] showed to Dr. Pineda.). --1713 Philippe Healy [...] X 8 cm irregular light brown bruise [id number] diameter darker brown bruise #3. (no standard) [...] to Domonique at [facility] confirming that photographs have been [...] Philippe Healy R.N.. Kaylie Thakur R.N., R.N., [facility] Locked/Released at 10/22/2008 7:44 by Anabelle Perez R.N. documented in this encounter Plan of Treatment Upcoming Encounters Date Type Department Care Team (Late st Contact Info) Description 10/01/2024 13:40 EDT Office Visit [facility] Endocrinology - [facility] [address] [place], [place] [phone] Wilder Zaidi, 62 [facility] [address] [place] [phone] documented as of this encounter Visit Diagnoses Not on filedocumented in this encounter Care Teams Director Business Systems Relationship Specialty Start Date End Date Yan Demarco MD [address] [place] [phone] PCP - General 08/22/09 02/20/10 Corin Skinner MD [address] [place] [phone] PCP - General 10/24/08 08/21/09 documented as of this encounter
--- OUTSIDE RECORDS SUMMARY | 2024-08-06 01:02 | XMS_ITS | Encounter Summary ---
Author Organization [facility] Address [address] [place] [address] Care Team Providers Care Machine Filler Shredder Name Role Phone Corin Skinner MD Primary Care Provider [phone]- [phone] Encounter Details Date Type Department Care Team (Late st Contact Info) Description 10/21/2008 Before PRISM Converted Visit (Maple) [facility] - [place] conversion [address] [place] [address] Emergency, MD Diya Social History Tobacco Use [...] Office Visit [facility] Endocrinology - [facility] [address] [place] [address] Wilder Zaidi, DO 62 [facility] [address] [place] [address] documented as of this encounter Procedures Procedure Name Priority Date/Time Associated Diagnosis Comments OSMOLALITY Routine 10/21/2008 17:54 EDT documented in this encounter Results * (ABNORMAL) OSMOLALITY (10/21/2008 17:54 EDT) Osmolality Cintia 258(L) 280 - 300 MOS/KG [facility] 10/21/2008 17:5 4 EDT 10/21/2008 17:54 EDT us Default Emergency MD CHEMISTRY & BLOOD GAS ORDER LYNDSEY Final Result Performing Organization Address City/State/[facility] Co de Phone Number [facility] [address] [place] [address] documented in this encounter Visit Diagnoses Not on filedocumented in this encounter Care Teams Machine Filler Shredder Relationship Specialty Start Date End Date Corin Skinner MD [address] [place] [phone] PCP - General 10/24/08 08/21/09 documented as of this encounter
--- OUTSIDE RECORDS SUMMARY | 2024-08-06 01:02 | XMS_ITS | Encounter Summary ---
Author Organization [facility] Address [address] [place] [address] Care Team Providers Care Safety Teacher Name Role Phone Corin Skinner MD Primary Care Provider [phone] Encounter Details Date Type Department Care Team (Late st Contact Info) Description 10/21/2008 Before PRISM Converted Visit (Maple) [facility] - Maple conversion [address] [place], [place] [address] Christopher Ga MD [address] [place] [phone] Social History Tobacco Use Types Packs/Day [...] Office Visit [facility] Endocrinology - [facility] 62 [place] [address] Wilder Zaidi DO 62 [facility] [address] [place] [address] documented as of this encounter [...] URINALYSIS ORDERABLES Final Result Performing Organization Address City/State/[facility] Co de Phone Number [facility] [address] [place] [address] documented in this encounter Visit Diagnoses Not on filedocumented in this encounter Care Teams Safety Teacher Relationship Specialty Start Date End Date Corin Skinner MD [address] [place] [phone] PCP - General 10/24/08 08/21/09 documented as of this encounter
--- OUTSIDE RECORDS SUMMARY | 2024-08-06 01:02 | XMS_ITS | Encounter Summary ---
Author Organization [facility] Address [address] [place] [address] Care Team Providers Care Analysis Evaluator Name Role Phone Corin Skinner MD Primary Care Provider Encounter Details Date Type Department Care Team (Late st Contact Info) Description 10/21/2008 Before PRISM Converted Visit (Maple) [facility] - [place] conversion [address] [place], [place] [address] Christopher Ga MD [address] [place] [phone] Social History Tobacco Use Types Packs/Day [...] [facility] Endocrinology - [facility] [address] [place] [address] Wilder Zaidi DO 62 [facility] [address] [place] [address] documented as of this encounter [...] LYNDSEY Final Result [facility] [address] [place] [address] documented in this encounter Visit Diagnoses Not on filedocumented in this encounter Care Teams Analysis Evaluator Relationship Specialty Start Date End Date Corin Skinner MD [address] [place] [phone] PCP - General 10/24/08 08/21/09 documented as of this encounter
--- OUTSIDE RECORDS SUMMARY | 2024-08-06 01:02 | XMS_ITS | Encounter Summary ---
Author Organization [facility] Address [address] [place] [address] Care Team Providers Care Vending Manager Name Role Phone Corin Skinner MD Primary Care Provider [phone] Encounter Details Date Type Department Care Team (Late st Contact Info) Description 10/21/2008 Before PRISM Converted Visit (Maple) [facility] Adult Primary Care - [address] [phone] Unknown, Provider, Social History Tobacco Use Types [...] EDT Office Visit [facility] Endocrinology - [address] [phone] Wilder Zaidi, DO 62 [facility] [address] [place] [address] documented as of this encounter Procedures Procedure Name Priority Date/Time Associated Diagnosis Comments GLUCOSE, GLUCOMETER Routine 10/21/2008 1 7:16 EDT documented in this encounter Results * (ABNORMAL) GLUCOSE, GLUCOMETER (10/21/2008 17:16 EDT) Glucose, Fingerstick 166(H) 70 - 100 mg/dl [facility] [place] [id number] Test Performed by Nursing Services [facility] 10/21/2008 17:1 6 EDT 10/21/2008 17:33 EDT us Provider Unknown MD CHEMISTRY & BLOOD GAS ORDERA BLES Final Result Performing Organization Address City/State/[facility] Co de Phone Number [facility] [address] [place] [address] documented in this encounter Visit Diagnoses Not on filedocumented in this encounter Care Teams Vending Manager Relationship Specialty Start Date End Date Corin Skinner MD [address] [place] [phone] PCP - General 10/24/08 08/21/09 documented as of this encounter
--- OUTSIDE RECORDS SUMMARY | 2024-08-06 01:02 | XMS_ITS | Encounter Summary ---
Author Organization [facility] Address [address] [place] [address] Care Team Providers Care Centrifugal Operator Name Role Phone Corin Skinner MD Primary Care Provider Encounter Details Date Type Department Care Team (Late st Contact Info) Description 10/21/2008 Before PRISM Converted Visit (Maple) [facility] - [place] conversion [address] [place], [place] [address] Christopher Ga MD [address] [place] [phone] Social History Tobacco Use Types Packs/Day [...] Visit [facility] Endocrinology - [facility] 62 [place] [address] Wilder Zaidi DO 62 [facility] [address] [place] [address] documented as of this [...] LYNDSEY Final Result [facility] [address] [place] [address] documented in this encounter Visit Diagnoses Not on filedocumented in this encounter Care Teams Centrifugal Operator Relationship Specialty Start Date End Date Corin Skinner MD [address] [place] [phone] PCP - General 10/24/08 08/21/09 documented as of this encounter
--- OUTSIDE RECORDS SUMMARY | 2024-08-06 01:02 | XMS_ITS | Encounter Summary ---
Author Organization [facility] Address [address] [place] [address] Care Team Providers Care Notched Blade Loader Name Role Phone Corin Skinner MD Primary Care Provider [phone] Encounter Details Date Type Department Care Team (Late st Contact Info) Description 10/21/2008 Before PRISM Converted Visit (Maple) [facility] - [place] conversion [address] [place], [place] [address] Christopher Ga MD [address] [place] [phone] Social History Tobacco Use Types Packs/Day [...] [facility] Endocrinology - [facility] [address] [place] [address] Wilder Zaidi DO 62 [facility] [address] [place] [address] documented as of this encounter Procedures Procedure Name Priority Date/Time Associated Diagnosis Comments OSMOLALITY, URINE Routine 10/21/2008 21: 00 EDT documented in this encounter Results * (ABNORMAL) OSMOLALITY, URINE (10/21/2008 21:00 EDT) Osmolality, Ur 106(L) 392 - 1090 MOS/KG [facility] 10/21/2008 21:0 0 EDT 10/21/2008 21:16 EDT us Christopher Ga MD URINALYSIS ORDERABLES Final Result Performing Organization Address City/State/[facility] Co de Phone Number [facility] [address] [place] [address] documented in this encounter Visit Diagnoses Not on filedocumented in this encounter Care Teams Notched Blade Loader Relationship Specialty Start Date End Date Corin Skinner MD [address] [place] [phone] PCP - General 10/24/08 08/21/09 documented as of this encounter
--- OUTSIDE RECORDS SUMMARY | 2024-08-06 01:02 | XMS_ITS | Encounter Summary ---
Author Organization [facility] Address [address] [place] [address] Care Team Providers Care Design And Sales Consultant Name Role Phone Yan Demarco MD Primary Care Provider [phone] Corin Skinner MD Primary Care Provider [phone] Akil Serrano MD Primary Care Provider [phone] Yossi Torres MD Primary Care Provider [phone] Emilee Cody MD Primary Care Provider + Ren Vaz MD Primary Care Provider [phone] Encounter Details Date Type Department Care Team (Late st Contact Info) Description 10/22/2008 Before PRISM Converted Visit (Maple) [facility] - [place] conversion [address] [place] [address] Christopher Ga MD [address] [place] [phone] Social History Tobacco Use Types Packs/Day [...] Visit [facility] Endocrinology - [address] [phone] Wilder Zaidi, DO 62 [facility] [address] [place] [address] documented as of this encounter [...] filedocumented in this encounter Care Teams Design And Sales Consultant Relationship Specialty Start Date End Date Yan Demarco MD [address] [place] [address] PCP - General 08/22/09 02/20/10 Corin Skinner MD [address] [place] [phone] PCP - General 10/24/08 08/21/09 Akil Serrano MD 74 [facility] 100 [place], [place] [address] PCP - General 02/21/10 04/16/11 Yossi oTrres MD [address] [place] [phone] PCP - General 04/17/11 03/14/16 Emilee Cody MD [address] [place] [phone] PCP - General 03/15/16 09/29/18 Ren Vaz MD [address] [place] [phone] PCP - General 09/30/18 documented as of this encounter
--- OUTSIDE RECORDS SUMMARY | 2024-08-06 01:02 | XMS_ITS | Encounter Summary ---
Author Organization [facility] Address [address] [place] [address] Care Team Providers Care Rotary Cutter Feeder Name Role Phone Unavailable Primary Care Provider Unavailabl e Encounter Details Date Type Department Care Team (Late st Contact Info) Description 08/13/2008 14:44 EST - 08/14/2008 11:59 EST Hospital Encounter [facility] [address] [place] [address] Summer Parr MD 111 [facility], [address] [address] Slava Pineda MD Discharge Disposition: [...] 12/14/2008 0820 EDT HISS DISCHARGE SUMMARY ADDRESS: [address] [place] [address] PHONE: [phone] ATTENDING PHYSICIAN: SUMMER PARR MD ADDRESS: [place] [address] [address] [place] [address] PHONE: [phone] REFERRING PHYSICIAN: ANCELMO MICHAEL MD [facility]DR[facility] [address] [place] [address] PHONE: [phone] ADMISSION DATE: 08/13/08 SERVICE: PED. MEDICINE TRANSFER TO IP: DISCHARGE DATE: 08/14/08 SERVICE: PED. 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 CONDITION AT DISCHARGE: Stable DISPOSITION AT DISCHARGE: Home without home health services - Nursing, PT, OT, AUTOMATIC MACHINE ATTENDANT ALLERGIES: The following allergies were reported [...] 9) POTASSIUM CHLORIDE / (kcl ext-rel tab (senior living)) 30MEQ EXTENDED RELEASE TABLET, 3 TIMES A DAY, BY MOUTH MEDICATIONS YOU WERE TAKING PRIOR TO ADMISSION THAT SHOULD BE STOPPED: NONE HERBAL REMEDIES, NUTRITIONAL SUPPLEMENTS, AND ISXI-WNN-LMMKUNT MEDICATIONS that have not been prescribed by a physician may have significant adverse side effect or may interfere with the medications that have been prescribed for you. If you are taking herbal remedies, nutritional supplements, or zxmf-xug-yqvuewr medications you are strongly encouraged to discontinue [...] JOHAN PARIKH MD P - ZOHDocument ID: [id number] documented in this encounter Discharge Disposition Disposition Code Departure Means Destination Home or Self Care documented in this encounter Plan of Treatment Upcoming Encounters Date Type Department Care Team (Late st Contact Info) Description 10/01/2024 13:40 EDT Office Visit [facility] Endocrinology - [place] [address] [place], [place] [phone] Wilder Zaidi, DO [address] [place] [address] documented as of this encounter [...] Final Result Performing Organization Address [facility] de Phone Number [facility] [address] [place] [address] * BUN (08/14/2008 6:00 EST) BUN 14 10 - 26 mg/dl [facility] Comment:Heparinized plasma. 08/14/2008 6:00 EST 08/14/2008 9:43 EST Summer Parr MD CHEMISTRY & BLOOD GAS ORDERABLE S Final Result Performing Organization Address [facility] Co de Phone Number [facility] [address] [place] [address] * (ABNORMAL) ELECTROLYTES (08/14/2008 6:00 EST) Sodium [...] S Final Result [facility] [address] [place] [address] documented in this encounter Visit Diagnoses Not on filedocumented in this encounter
--- OUTSIDE RECORDS SUMMARY | 2024-08-06 01:02 | XMS_ITS | Encounter Summary ---
Author Organization [facility] Address [address] [place] [address] Care Team Providers Care Hand Filer Balance Wheel Name Role Phone Corin Skinner MD Primary Care Provider Encounter Details Date Type Department Care Team (Late st Contact Info) Description 10/21/2008 Before PRISM Converted Visit (Maple) [facility] - Maple conversion [address] [place], [place] [address] Christopher Ga MD [address] [place] [phone] Social History Tobacco Use Types Packs/Day [...] [facility] Endocrinology - [facility] [address] [place] [address] Wilder Zaidi DO 62 [facility] [address] [place] [address] documented as of this encounter Procedures Procedure Name Priority Date/Time Associated Diagnosis Comments GLUCOSE, GLUCOMETER Routine 10/21/2008 2 2:27 EDT documented in this encounter Results * (ABNORMAL) GLUCOSE, GLUCOMETER (10/21/2008 22:27 EDT) Glucose, Fingerstick 103(H) 70 - 100 mg/dl [facility] Internal Control Manager ID [id number] Test Performed by Nursing Services [facility] 10/21/2008 22:2 7 EDT 10/21/2008 23:30 EDT us Christopher Ga MD CHEMISTRY & BLOOD GAS ORDER LYNDSEY Final Result [facility] [address] [place] [address] documented in this encounter Visit Diagnoses Not on filedocumented in this encounter Care Teams Hand Filer Balance Wheel Relationship Specialty Start Date End Date Corin Skinner MD [address] [place] [phone] PCP - General 10/24/08 08/21/09 documented as of this encounter
--- OUTSIDE RECORDS SUMMARY | 2024-08-06 01:02 | XMS_ITS | Encounter Summary ---
Author Organization [facility] Address [address] [place] [address] Care Team Providers Care Fig Caprifier Name Role Phone Corin Skinner MD Primary Care Provider [phone] Encounter Details Date Type Department Care Team (Late st Contact Info) Description 10/21/2008 Before PRISM Converted Visit (Maple) [facility] - Maple conversion [address] [place] [address] Emergency, MD Diya Social History Tobacco Use [...] Office Visit [facility] Endocrinology - [facility] [address] [place] [address] Wilder Zaidi, DO 62 [facility] [address] [place] [address] documented as of this encounter [...] PF4 ORDERABLES Final Result Performing Organization Address City/State/[facility] Co de Phone Number [facility] [address] [place] [address] documented in this encounter Visit Diagnoses Not on filedocumented in this encounter Care Teams Fig Caprifier Relationship Specialty Start Date End Date Corin Skinner MD [address] [place] [phone] PCP - General 10/24/08 08/21/09 documented as of this encounter
--- OUTSIDE RECORDS SUMMARY | 2024-08-06 01:02 | XMS_ITS | Encounter Summary ---
Author Organization [facility] Address [address] [place] [address] Care Team Providers Care Ethylene Plant Helper Name Role Phone Yan Demarco MD Primary Care Provider [phone] Corin Skinner MD Primary Care Provider [phone] Akil Serrano MD Primary Care Provider [phone] Yossi Torres MD Primary Care Provider [phone] Emilee Cody MD Primary Care Provider + Ren Vaz MD Primary Care Provider [phone] Encounter Details Date Type Department Care Team (Late st Contact Info) Description 10/21/2008 Before PRISM Converted Visit (Maple) [facility] - Maple conversion [address] [place] [address] Slava Pineda MD Social History Tobacco Use [...] Description 10/01/2024 13:40 EDT Office Visit [facility] Endocrinology - [facility] [address] [place], [place] [id number] Wilder Zaidi, [address] [facility] [address] [place] [address] documented as of this encounter Procedures Procedure [...] on filedocumented in this encounter Care Teams Ethylene Plant Helper Relationship Specialty Start Date End Date Yan Demarco MD [address] [place] [address] PCP - General 08/22/09 02/20/10 Corin Skinner MD [address] [place] [phone] PCP - General 10/24/08 08/21/09 Akil Serrano MD [address] [facility] [address] [place], [place] [phone] PCP - General 02/21/10 04/16/11 Yossi Torres MD [address] [place] [phone] PCP - General 04/17/11 03/14/16 Emilee Cody MD [address] [place] [phone] PCP - General 03/15/16 09/29/18 Ren Vaz MD [address] [place] [address] PCP - General 09/30/18 documented as of this encounter
--- OUTSIDE RECORDS SUMMARY | 2024-08-06 01:02 | XMS_ITS | Encounter Summary ---
Author Organization [facility] Address [address] [place] [address] Care Team Providers Care Road Engineer Freight Name Role Phone Corin Skinner MD Primary Care Provider [phone] Encounter Details Date Type Department Care Team (Late st Contact Info) Description 10/21/2008 Before PRISM Converted Visit (Maple) [facility] - Maple conversion [address] [place] [address] Emergency, MD Diya Social History Tobacco Use [...] Office Visit [facility] Endocrinology - [facility] [address] [place] [address] Wilder Zaidi, DO [address] [facility] [address] [place] [address] documented as of this encounter [...] ORDER LYNDSEY Final Result Performing Organization Address City/State/[facility] Co de Phone Number [facility] [address] [place] [address] documented in this encounter Visit Diagnoses Not on filedocumented in this encounter Care Teams Road Engineer Freight Relationship Specialty Start Date End Date Corin Skinner MD [address] [place] [phone] PCP - General 10/24/08 08/21/09 documented as of this encounter
--- OUTSIDE RECORDS SUMMARY | 2024-08-06 01:02 | XMS_ITS | Encounter Summary ---
Author Organization [facility] Address [address] [place] [address] Care Team Providers Care Manager Medical Name Role Phone Corin Skinner MD Primary Care Provider Encounter Details Date Type Department Care Team (Late st Contact Info) Description 10/21/2008 Before PRISM Converted Visit (Maple) [facility] - Maple conversion [address] [place], [place] [address] Christopher Ga MD [address] [place] [phone] Social History Tobacco Use Types Packs/Day [...] Visit [facility] Endocrinology - [facility] [address] [place] [address] Wilder Zaidi DO 62 [facility] [address] [place] [address] documented as of this encounter Procedures Procedure Name Priority Date/Time Associated Diagnosis Comments GLUCOSE, GLUCOMETER Routine 10/21/2008 1 9:22 EDT documented in this encounter Results * GLUCOSE, GLUCOMETER (10/21/2008 19:22 EDT) Glucose, Fingerstick 89 70 - 100 mg/dl [facility] Clinical Research Technician ID [id number] Test Performed by Nursing Services [facility] 10/21/2008 19:2 2 EDT 10/21/2008 23:29 EDT us Christopher Ga MD CHEMISTRY & BLOOD GAS ORDER LYNDSEY Final Result [facility] [address] [place] [address] documented in this encounter Visit Diagnoses Not on filedocumented in this encounter Care Teams Manager Medical Relationship Specialty Start Date End Date Corin Skinner MD [address] [place] [phone] PCP - General 10/24/08 08/21/09 documented as of this encounter
--- OUTSIDE RECORDS SUMMARY | 2024-08-06 01:02 | XMS_ITS | Encounter Summary ---
Author Organization [facility] Address [address] [place] [address] Care Team Providers Care Field Operations Technician Name Role Phone Corin Skinner MD Primary Care Provider [phone] Encounter Details Date Type Department Care Team (Late st Contact Info) Description 10/21/2008 Before PRISM Converted Visit (Maple) [facility] - Maple conversion [address] [place], [place] [address] Christopher Ga MD [address] [place] [phone] Social History Tobacco Use Types Packs/Day [...] Office Visit [facility] Endocrinology - [facility] [address] [place] [address] Wilder Zaidi DO 62 [facility] [address] [place] [address] documented as of this encounter Procedures Procedure Name Priority Date/Time Associated Diagnosis Comments SMEAR REVIEW Routine 10/21/2008 22:35 EDT documented in this encounter Results * SMEAR REVIEW (10/21/2008 22:35 EDT) Platelet Morphology 1+ Large platelets [facility] 10/21/2008 22:3 5 EDT 10/21/2008 22:35 EDT us Christopher Ga MD HEMATOLOGY & PF4 ORDERABLES Final Result [facility] [address] [place] [address] documented in this encounter Visit Diagnoses Not on filedocumented in this encounter Care Teams Field Operations Technician Relationship Specialty Start Date End Date Corin Skinner MD [address] [place] [phone] PCP - General 10/24/08 08/21/09 documented as of this encounter
--- OUTSIDE RECORDS SUMMARY | 2024-08-06 01:03 | XMS_ITS | Encounter Summary ---
Author Organization [facility] Address [address] [place] [address] Care Team Providers Care Strap Buckler Name Role Phone Corin Skinner MD Primary Care Provider [phone] Encounter Details Date Type Department Care Team (Late st Contact Info) Description 07/03/2008 Office Visit [facility] - Maple conversion [address] [place] [address] Arcadio Gamboa MD [address] [facility], [address] 1 [place] [phone] Social History Tobacco Use Types Packs/Day Years [...] Addenda for MIGUEL ANGEL MASON JR VisitID: [id number] Date: 07/03/2008 07/03/2008 12:16 DR. MACKAY PT [...] --1527 Lucille Carlson R.N. (Paediatric Residents and Recycling Assistant at bedside). --1528 Lucille Carlson R.N. 16 fr morse catheter placed using sterile technique and attached to bedside drainage bag, with return of yellow-colored clear urine. The patient tolerated procedure well (inserted by Paediatric Resident Judy Clarke). --1537 Lucille Carlson R.N. (Patient appears more responsive). --1538 Lucille Carlson R.N. Patient transported to [facility] by stretcher with [employer]. --1613 Lucille Carlson R.N. VANCOMYCIN 1 [...] IV access in left inner wrist by CLASSIFICATION CASE MANAGER). --151 Lucille Carlson R.N. IV Site #2. IV access: left foot. IV started in ED; (22g IV access by CLASSIFICATION CASE MANAGER). --1522 Lucille Carlson R.N. Blood samples drawn. [...] was given (Kp). Transported via stretcher by [employer] (NS running STAT, 1gm Vancomycin running [...] [facility] - [facility] [address] [place], [place] [phone] Wilder Zaidi, 62 [facility] [address] [place] [address] documented as of this encounter Visit Diagnoses Not on filedocumented in this encounter Care Teams Strap Buckler Relationship Specialty Start Date End Date Corin Skinner MD [address] [place] [phone] PCP - General 10/24/08 08/21/09 documented as of this encounter
--- OUTSIDE RECORDS SUMMARY | 2024-08-06 01:03 | XMS_ITS | Encounter Summary ---
Author Organization [facility] Address [address] [place] [address] Care Team Providers Care Tube Test Technician Name Role Phone Unavailable Primary Care Provider Unavailabl e Encounter Details Date Type Department Care Team (Late st Contact Info) Description 07/11/2008 10:40 EST Hospital Encounter [facility] [address] [place] [address] Skyler Edwards, [facility] [address] [place] [phone] Lc Cheng MD 111 [facility], [address] [place] [phone] Social History Tobacco Use Types Packs/Day Years [...] EDT Office Visit [facility] Endocrinology - [address] [address] Wilder Zaidi, DO [address] [address] documented as of this encounter Visit Diagnoses Not on filedocumented in this encounter
--- OUTSIDE RECORDS SUMMARY | 2024-08-06 01:03 | XMS_ITS | Encounter Summary ---
Author Organization [facility] Address [address] [place] [address] Care Team Providers Care Bench Assembler Electrical Name Role Phone Unavailable Primary Care Provider Unavailabl e Encounter Details Date Type Department Care Team (Late st Contact Info) Description 07/03/2008 16:20 EST - 07/05/2008 11:59 EST Hospital Encounter [facility] [address] [place] [address] Jodi Parr MD 111 [facility] [address] [place] [phone] Arcadio Gamboa MD 111 [facility], Level [address] [place] [phone] Discharge Disposition: Home-Health Care Svc Social History [...] 12/13/2008 2321 EDT HISS DISCHARGE SUMMARY ADDRESS: [address] [place] [address] PHONE: [phone] ATTENDING PHYSICIAN: JODI PARR MD ADDRESS: [address] [place] [address] PHONE: [phone] REFERRING PHYSICIAN: DOCTOR MARGARITA MD ADDRESS: PHONE: [...] home health services - Nursing, PT, OT, LIVESTOCK FARM MANAGER ALLERGIES: The following allergies were reported by [...] 12) POTASSIUM CHLORIDE / (kcl ext-rel tab (jail)) 20MEQ EXTENDED RELEASE TABLET, 3 TIMES A DAY, BY MOUTH MEDICATIONS YOU WERE TAKING PRIOR TO ADMISSION THAT SHOULD BE STOPPED: NONE HERBAL REMEDIES, NUTRITIONAL SUPPLEMENTS, AND UEFG-XJN-WELYSKY MEDICATIONS that have not been prescribed by a physician may have significant adverse side effect or may interfere with the medications that have been prescribed for you. If you are taking herbal remedies, nutritional supplements, or skix-utf-rgkatyu medications you are strongly encouraged to discontinue [...] status change was due to seizure or PAYROLL CONSULTANT infection. Miguel Angel was continued on home [...] follow up with Dr. Edwards on 07/11 [facility]: Previously followed by: [facility] __ Initial call by: _Voice mail to Agnes on 07/04/08 _ AGENCY: [facility] [phone] fax [phone] cc: Doctor Demarco at [facility] END OF REPORT D: YAN KHAN MD P - ZOHDocument ID: [id number] documented in this encounter Discharge Disposition Disposition [...] Cheng MD P - MH Job ID: [id number] Document ID: [id number] cc: MD Yan Walker MD Christa M [...] status. I doubt this is related to PAYROLL CONSULTANT infection or other systemic infection, especially considering [...] Lc Cheng MD P - Job ID: [id number] Document ID: [id number] cc: MD Corin Walker MD Christa M Zehle, MD documented in this encounter Plan of Treatment Upcoming Encounters Date Type Department Care Team (Late st Contact Info) Description 10/01/2024 13:40 EDT Office Visit [facility] Endocrinology - [facility] [address] [place] [address] Dejuan Wilder Valencia, DO [address] [facility] [address] [place] [address] documented as [...] ORDERABLE S Final Result Performing Organization Address [facility] de Phone Number [facility] [address] [place] [address] * ELECTROLYTES (07/04/2008 8:15 EST) Sodium 144 [...] Final Result Performing Organization Address [facility] Phone Number [facility] [address] [place] [address] * (ABNORMAL) ELECTROLYTES (07/03/2008 20:00 EST) Sodium [...] ORDERABLE S Final Result Performing Organization Address [facility] de Phone Number [facility] [address] [place] [address] * CULTURE IF UA POSITIVE (07/03/2008 18:45 EST) Culture if Indicated Culture not indicated by urinalysis results. [facility] 07/03/2008 18:4 5 EST 07/03/2008 19:53 EST us Jodi Parr MD MICROBIOLOGY - GENERAL ORDERABL ES Final Result Performing Organization Address [facility] de Phone Number [facility] [address] [place] [address] * DRUG SCREEN 6 (07/03/2008 18:45 EST) Pathologist [facility] Amphetamine Screen, Urine Negative Screen Suitable for [...] ORDERABLES Final Res ult Performing Organization Address [facility] de Phone Number [facility] [address] [place] [address] * UA REFLEX (07/03/2008 18:45 EST) Pathologist [facility] UA Billing Microscopic not indicated. [facility] 07/03/2008 18:4 5 EST 07/03/2008 19:53 EST Jodi Parr MD URINALYSIS ORDERABLES Final Res ult Performing Organization Address [facility] Co de Phone Number [facility] [address] [place] [address] * (ABNORMAL) URINALYSIS, CHEMICAL (07/03/2008 18:45 EST) Pathologist [facility] Color, UA Yellow [facility] Clarity, UA Clear [facility] Glucose, UA Norm NORM [facility] Bilirubin, UA Neg NEG TRUE [facility] Ketones, UA Neg NEG [facility] Specific [place], Urine <1.005(L) 1.005 - 1.02 [facility] [...] ORDERABLES Final Res ult Performing Organization Address [facility] Co de Phone Number [facility] [address] [place] [address] * BACTERIAL CULTURE, BLOOD (07/03/2008 16:00 EST) Specimen Description Blood Right Groin [facility] Result No growth [facility] Report Status Final [id number] [facility] 07/03/2008 16:0 0 EST 07/03/2008 17:30 EST us Jodi Parr MD MICROBIOLOGY - GENERAL ORDERABL ES Final Result Performing Organization Address [facility] de [place] [address] * (ABNORMAL) BLOOD GAS, EG6 ISTAT (07/03/2008 [...] [facility] Sample Type ARTERIAL [facility] licensed home inspector [place] [id number] Test Performed by Respiratory [facility] 07/03/2008 15:0 5 EST 07/04/2008 19:29 EST us Jodi Parr MD CHEMISTRY & BLOOD GAS ORDERABLE S Final Result [facility] [address] [place] [address] documented in this encounter Visit Diagnoses Not on filedocumented in this encounter
--- OUTSIDE RECORDS SUMMARY | 2024-08-06 01:03 | XMS_ITS | Encounter Summary ---
Author Organization [facility] Address [address] [place] [address] Care Team Providers Care Location Man Name Role Phone Unavailable Primary Care Provider Unavailabl e Encounter Details Date Type Department Care Team (Late st Contact Info) Description 06/11/2008 11:00 EST - 06/11/2008 11:59 EST Hospital Encounter [facility] [address] [place] [address] [facility] [address] [place] [address] Discharge Disposition: Auto Discharge Social History Tobacco [...] Office Visit [facility] Endocrinology - [facility] [address] [place] [address] Wilder Zaidi, DO 62 [facility] [address] [place] [address] documented as of this encounter [...] PF4 ORDERABLES Final Result Performing Organization Address [facility] de Phone Number [facility] [address] [place] [address] * (ABNORMAL) PROTIME (07/03/2008 16:00 EST) Pro [...] PF4 ORDERABLES Final Result Performing Organization Address [facility] de Phone Number [facility] [address] [place] [address] * (ABNORMAL) BLOOD GAS, G3 ISTAT (07/03/2008 [...] LAB Sample Type NOT GIVEN [facility] spa manager ID [id number] Test performed by Chemistry [facility] 07/03/2008 15:2 3 EST 07/03/2008 15:28 EST us Provider Unknown MD CHEMISTRY & BLOOD GAS ORDERA BLES Final Result Performing Organization Address [facility] Co de Phone Number [facility] [address] [place] [address] * (ABNORMAL) LACTIC ACID (07/03/2008 15:05 EST) Pathologist [facility] Lactic Acid 3.0(H) 0.7 - 2.1 mmol/L [facility] 07/03/2008 15:0 5 EST 07/03/2008 15:19 EST us Default Emergency CHEMISTRY & BLOOD GAS ORDER LYNDSEY Final Result Performing Organization Address [facility] de Phone Number [facility] [address] [place] [address] * (ABNORMAL) GLUCOSE, SERUM (07/03/2008 15:05 EST) Pathologist [facility] Glucose, Serum 69(L) 70 - 100 mg/dl [facility] Comment:Heparinized plasma. 07/03/2008 15:0 5 EST 07/03/2008 15:13 EST us Default Emergency CHEMISTRY & BLOOD GAS ORDER LYNDSEY Final Result Performing Organization Address [facility] de Phone Number [facility] [address] [place] [address] * CREATININE (07/03/2008 15:05 EST) Creatinine 0.80 0.7 - 1.5 mg/dl [facility] Comment:Heparinized plasma. GFR, Calculated >60 ml/min/1.7 3m2 [facility] Comment:Heparinized plasma. 07/03/2008 15:0 5 EST 07/03/2008 15:13 EST Default Emergency MD CHEMISTRY & BLOOD GAS ORDER LYNDSEY Final Result Performing Organization Address [facility] Phone Number [facility] [address] [place] [address] * BUN (07/03/2008 15:05 EST) BUN 14 10 - 26 mg/dl [facility] Comment:Heparinized plasma. 07/03/2008 15:0 5 EST 07/03/2008 15:13 EST Default Emergency MD CHEMISTRY & BLOOD GAS ORDER LYNDSEY Final Result Performing Organization Address [facility] Phone Number [facility] [address] [place] [address] * ELECTROLYTES (07/03/2008 15:05 EST) Sodium 145 [...] ORDER LYNDSEY Final Result Performing Organization Address [facility] de Phone Number [facility] [address] [place] [address] * (ABNORMAL) HEMAGRAM AND DIFFERENTIAL (07/03/2008 15:05 [...] BLES Final Result [facility] [address] [place] [address] * PORTABLE CHEST 1 VIEW (07/03/2008 14:52 [...] Note Leticia Solomon MD / Marlene Mensah, [facility] - 11/21/2008 Patient has cough, shortness of [...] agree with the findings. Shola Wolf MD [facility] DIAGNOSTIC IM[facility] Final Result * ELECTROLYTES (06/11/2008 11:11 EST) Sodium 140 136 - 145 mEq/L [facility] Potassium 4.1 3.5 - 5.0 mEq/L [facility] Chloride 100 96 - 110 mEq/L [facility] CO2 24 24 - 32 mEq/L [facility] 06/11/2008 11:1 1 EST 06/11/2008 11:13 EST Skyler Edwards [facility] CHEMISTRY & BL OOD GAS ORDERABLES Final Result [facility] [address] [place] [address] documented in this encounter Visit Diagnoses Not on filedocumented in this encounter
--- OUTSIDE RECORDS SUMMARY | 2024-08-06 01:05 | XMS_ITS | Encounter Summary ---
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 [employer] Name Role Phone Corin Skinner MD Primary Care Provider [phone] Encounter Details Date Type Department Care Team (Late st Contact Info) Description 04/11/2008 Office Visit [facility] [place] conversion [address] [place] [address] Nurse, Emergency Room, Social History Tobacco Use Types Packs/Day Years Used Date Smoking Tobacco: Never Assessed Sex and Gender Information Value Date Recorded Sex Assigned at Not on file Legal Sex Male 18:35 EST Gender Identity Not on file Sexual Orientation Not on file documented as of this encounter Progress Notes * Ricki, Conv Motor Pool Clerk - 08/16/2009 1849 EST Department - Physician Summary Registration Date/Time: 04/11/2008 6:00 Addenda for MIGUEL ANGEL MASON JR VisitID: [id number] Date: 04/11/2008 04/11/2008 4:46 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 POSTICTAL, INCONTINENT, RECTAL TEMP: 89 F, NOW 89 F. HX: DM, BLOOD CX, WBC 1.8, [id number]. VS: 98 113/64 16. signed by Wilder [...] today. Pain level: unable to quantify. 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 PAST HX: Diabetes mellitus (insipidus). (traumatic brain injury, seizure disorder). SOCIAL HX: Nonsmoker. No alcohol use. The nutritional risk assessment revealed no deficiencies. No report of abuse. Arrived by EMS. Historian: EMS. --634 Rosy Ramírez R.N. (Father states when at [place] 2 months ago, it was discovered that [...] Visit [facility] Endocrinology - [place] [address] [place] [address] Wilder Zaidi, DO [address] [place] [address] documented as of this encounter Visit Diagnoses Not on filedocumented in this encounter Care Teams Counter Clerk [employer] Equipment [employer] Relationship Specialty Start Date End Date Corin Skinner MD [address] [place] [phone] PCP - General 10/24/08 08/21/09 documented as of this encounter
--- OUTSIDE RECORDS SUMMARY | 2024-08-06 01:05 | XMS_ITS | Encounter Summary ---
Author Organization 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 Machine Operator Submerged Arc Name Role Phone Unavailable Primary Care Provider Unavailabl e Encounter Details Date Type Department Care Team (Late st Contact Info) Description 04/11/2008 14:00 EDT - 04/13/2008 11:59 EDT Hospital Encounter [facility] [address] [place] [address] Skyler Quinteros MD [facility] [address] [facility], [address] [phone] Christopher Ga MD [address] [place] [phone] Discharge Disposition: Home-Health Care Svc Social [...] - 01/17/20092037 EDT HISS DISCHARGE SUMMARY ADDRESS: [address] [place] [address] PHONE: [phone] ATTENDING PHYSICIAN: SKYLER QUINTEROS MD ADDRESS: [place] [address] [address] [place] [address] PHONE: [phone] REFERRING PHYSICIAN: JOSEY SKINNER MD ADDRESS: [facility] [address] [place] [address] PHONE: [phone] ADMISSION DATE: 04/11/08 SERVICE: PED. MEDICINE TRANSFER TO IP: DISCHARGE DATE: 04/13/08 SERVICE: PED. 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 If you are taking herbal remedies, nutritional supplements, or eehh-bmt-[id number] medications you are strongly encouraged to discontinue [...] lasting about 30s. He was taken to [facility] and was hypotensive and hypothermic. His vitals improved after he was bolused and given 100mg of Solucortef IV. He was also given IM ceftriaxone x1. Transferred to [facility]. 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 His seizure threashold was most likely lowered by a viral infection, disurbed sleep pattern, or other unknown entity. Started Keppra per Neuro recommendations. He has an appt to see a neurologist at [facility] in May. Disturbed sleep and [...] lytes as an outpatient 04/14. Nutrition: the coordinator of library services were consulted regarding Miguel Angel's very restrictive calorie restriction and recommended a new diet plan of 1800 kcal/day and 75g protien. They are happy to see Miguel Angel with his parents as an outpatient at [facility] as they were unable to meet [...] Follow up with your new neurologist at [facility] Follow up with Dr. King in [place], endocrinology Follow up with Dr. Skinner at 3:30PM HOME HEALTH CARE REFERRAL SERVICES: Previously followed by: [facility] __ Initial call by: _Jazz Bush on 04/12/08_@ __:__ Spoke with: _Jyothi in intake [phone] fax [phone] The primary care physician has been notified of the home health referral and has given verbal permission for all orders and/or clarifications pursuant to this referral to be managed by the primary care physician's office. Marta Pisano (Full Stack Php Developer) to follow as outpt through [place] office cc: Patient chart MD JOSEY SCHMITZ MD Dr. Larrow at [phone] Pediatric Neurology at [facility] END OF REPORT D: YAN KHAN MD P - ZOHDocument ID: [id number] documented in this encounter Discharge Disposition Disposition Code Departure Means Destination Home-Health Care [facility] documented in this encounter Consult Notes * [...] frustration with the care they received at [facility] but apparently had made a spontaneous [...] his early February admission here and at [facility]. There was no fever but [...] there is a follow-up appointment at [facility] Neurology and perhaps that will be [...] Lc Cheng MD P - Job ID: [id number] Document ID: [id number] cc: MD Yan Walker MD Paul Rosenau, MD documented in this encounter Plan of Treatment Upcoming Encounters Date Type Department Care Team (Late st Contact Info) Description 10/01/2024 13:40 EDT Office Visit [facility] [place] [address] [place] [address] Dejuan Wilder Valencia, DO [address] [place] [address] documented as of this encounter [...] Result Performing Organization Address [facility] de Phone Number [facility] [address] [place] [address] * (ABNORMAL) ELECTROLYTES (04/12/2008 18:38 EDT) Sodium [...] Result Performing Organization Address [facility] de Phone Number [facility] [address] [place] [address] * CREATININE (04/12/2008 10:29 EDT) Creatinine 0.60 0.6 - 1.2 mg/dl [facility] GFR, Calculated Age <18 ml/min/1.7 3m2 [facility] 04/12/2008 10:2 9 EDT 04/12/2008 10:30 EDT Skyler Quinteros MD MSc CHEMISTRY & BLOOD GAS ORDERABLES Final Result Performing Organization Address [facility] de Phone Number [facility] [address] [place] [address] * BUN (04/12/2008 10:29 EDT) BUN 13 8 - 21 mg/dl [facility] 04/12/2008 10:2 9 EDT 04/12/2008 10:30 EDT Skyler Quinteros MD MSc CHEMISTRY & BLOOD GAS ORDERABLES Final Result Performing Organization Address [facility] Co de Phone Number [facility] [address] [place] [address] * (ABNORMAL) ELECTROLYTES (04/12/2008 10:29 EDT) Sodium 129(L) 136 - 145 mEq/L [facility] Potassium 3.9 3.5 - 5.0 mEq/L [facility] Chloride 94(L) 96 - 110 mEq/L [facility] CO2 25 24 - 32 mEq/L [facility] 04/12/2008 10:2 9 EDT 04/12/2008 10:30 EDT Skyler Quinteros MD MSc CHEMISTRY & BLOOD GAS ORDERABLES Final Result Performing Organization Address [facility] de Phone Number [facility] [address] [place] [address] * (ABNORMAL) HEMAGRAM AND DIFFERENTIAL (04/12/2008 10:29 EDT) Pathologist [facility] WBC 3.12(L) 4.6 - 11.2 K/cmm [facility] [...] PROBE ORDERABLES Final Result Performing Organization Address [facility] de Phone Number [facility] [address] [place] [address] * CREATININE (04/11/2008 16:00 EDT) Pathologist [facility] Creatinine 0.81 0.6 - 1.2 mg/dl [facility] GFR, Calculated Age <18 ml/min/1.7 3m2 [facility] 04/11/2008 16:0 0 EDT 04/11/2008 17:27 EDT Skyler Quinteros MD MSc CHEMISTRY & BLOOD GAS ORDERABLES Final Result Performing Organization Address [facility] de Phone Number [facility] [address] [place] [address] * BUN (04/11/2008 16:00 EDT) BUN 17 8 - 21 mg/dl [facility] 04/11/2008 16:0 0 EDT 04/11/2008 17:27 EDT Skyler Quinteros MD MSc CHEMISTRY & BLOOD GAS ORDERABLES Final Result Performing Organization Address [facility] de Phone Number [facility] [address] [place] [address] * (ABNORMAL) ELECTROLYTES (04/11/2008 16:00 EDT) Sodium 130(L) 136 - 145 mEq/L [facility] Potassium 4.1 3.5 - 5.0 mEq/L [facility] Chloride 95(L) 96 - 110 mEq/L [facility] CO2 23(L) 24 - 32 mEq/L [facility] 04/11/2008 16:0 0 EDT 04/11/2008 17:27 EDT us Skyler Quinteros MD MSc CHEMISTRY & BLOOD GAS ORDERABLES Final Result [facility] [address] [place] [address] documented in this encounter Visit Diagnoses Not on filedocumented in this encounter
--- OUTSIDE RECORDS SUMMARY | 2024-08-06 01:05 | XMS_ITS | Encounter Summary ---
Author Organization [facility] Address [address] [place] [address] Care Team Providers Care Flight Operation Coordinator Name Role Phone Unavailable Primary Care Provider Unavailabl e Encounter Details Date Type Department Care Team (Late st Contact Info) Description 05/08/2008 5:55 EST - 06/01/2008 11:59 EST Hospital Encounter [facility] Unit [address] [place], [place] [id number] Millicent Garcia MD [address] [place] [address] Jose Alejandro Castro MD Discharge [...] 01/15/2009 0552 EDT HISS DISCHARGE SUMMARY ADDRESS: [address] [place] [id number] PHONE: [phone] ATTENDING PHYSICIAN: MILLICENT GARCIA MD ADDRESS: [facility] [address] [place] [address] PHONE: [phone] REFERRING PHYSICIAN: ALANA MARTINEZ MD ADDRESS: [facility] [address] [place] [address] PHONE: [phone] ADMISSION DATE: 05/08/08 SERVICE: PED. MEDICINE TRANSFER TO IP: DISCHARGE DATE: 06/01/08 SERVICE: PED. MEDICINE CHIEF COMPLAINT / REASON FOR ADMISSION: Respiratory distress PRINCIPAL/FINAL DIAGNOSIS: RLL PNA SECONDARY/FINAL DIAGNOSIS: Central diabetes insipidus Developmental delay Cortical blindness Seizures Panhypopituitarism Left hemiparesis PRINCIPAL PROCEDURE: PICC line placement CONDITION AT DISCHARGE: Stable Improved DISPOSITION AT DISCHARGE: Home with home health services - Speech, PT, OT, PSYCHOLOGICAL EXAMINER-resume previous ALLERGIES: The following allergies were reported [...] STOPPED: NONE HERBAL REMEDIES, NUTRITIONAL SUPPLEMENTS, AND BDOR-NWZ-JHVGIEO MEDICATIONS that have not been prescribed by a physician may have significant adverse side effect or may interfere with the medications that have been prescribed for you. If you are taking herbal remedies, nutritional supplements, or cwzn-npw-efnbude medications you are strongly encouraged to discontinue [...] - Patient [facility] secondary to increased somnolence and ataxia [...] to Dr. Demarco or [facility]. If Na < 132 or Na > 142, or if K+ < 3.8, page Dr. NAVI Edwards (even if not online marketing analyst). - Check weight daily. If > 1kg [...] RN ____ on @ __:__ fax : [phone] Day of discharge referral call by: on __/__/__ @ __:__ Spoke with: / Agency: Date/time of first visit needed: __/__/__ @ __:__ Discharged on __/__/__ @ __:__ with: To address: Phone: menswear salesperson: Phone: Relationship: HOME INFUSION: IV Access Solo Power PICC Type Valved Catheter Date inserted 05/18/08 Last flushed Last drsg change 05/28/08 (external length 8cm) In-hospital teaching RE: Line care VENDOR [facility] PATIENT/FAMILY EDUCATION: Central Line Care PATIENT/FAMILY EDUCATION: Subcutaneous Injection cc: MD Dr. NAVI CASTILLO (Pedi Endo) Dr. Demarco (PCP) ADDENDUM: Additional medication: zonisamide (Zonegran) 50mg PO daily (for seizures) END OF REPORT D: ANATOLIY CHOUDHURY MD P - ZOHDocument ID: [id number] documented in this encounter Discharge Disposition Disposition Code Departure Means Destination Home[place] documented in this encounter Progress Notes * [...] history as below, who was transported from [place] with respiratory failure and pneumonia in the setting of two weeks of cough and congestion. At 0200 on the morning of admission, his stepmom noted his respiratory distress had acutely worsened and he was transported by EMS to [facility]. There, he required bag mask ventilation, intubation and mechanical ventilation. He received Sol[facility]Med[facility] deficiency[facility] [...] not tolerating p.o. of any consistency and VALUE ANALYSIS COORDINATOR was consulted on May 12, 2008. Bedside [...] His parents had been restricting him to [id number] zurdo/day to maintain a weight of 160-170#. [...] stabilized on mechanical ventilation prior to transport andrenmined on the ventilator for two days. On [...] from 12:15 to 1:15 with all of [place] care providers and family to discuss his disposition and coordination of care. DISPOSITION Transfer to [place] [id number]. CONDITION AT DISCHARGE Stable. Supervising Physician Signed by Alanna Neil MD 05/30/2008 15:03 Zain Hdz MD Alanna Neil MD - Zain Hdz MD A - [facility] Job ID: [id number] Document ID: [id number] cc: MD Zain Walker, MD Alanna Bell MD Roger C Knakal, MD Daniel W Larrow, MD William V Raszka, MD Christopher Ga, MD Jodi Parr, MD Skyler Edwards MD * Lc Cheng MD - 05/12/2008 0000 EST INPATIENT PROGRESS NOTE Service Date: 05/12/2008 PT LOC: M003 This is an inpatient followup consultation at the request of Dr Alanna Neil for this 47-hvau-flzwypq complicated problems centering around earlier operative craniopharyngioma. [...] neurologically related to his earlier and static PUNCHER AND FASTENER injury (bilateral thalamic hemorrhagicischemic changes). His examination [...] no definite evidence of a superimposed acquired PUNCHER AND FASTENER injury ie hypoxic, ischemic or otherwise. I [...] Cheng MD P - [facility] Job ID: [id number] Document ID: [id number] cc: MD Jose Alejandro Walker MD Amelia Hopkins, MD Stewart [place], MD documented in this encounter Consult Notes [...] [facility]was [facility] on May 08, 2008, with respiratory failure [...] are doing to include PT, OT, and VALUE ANALYSIS COORDINATOR. 2. Sorting And Folding Supervisor to clarify home disposition issues and assistance [...] Wicho Carlton MD P - Job ID: [id number] Document ID: [id number] cc: Alexis Ocampo III, MD Barry W [...] neurology resident, Dr. Carr. Miguel Angel is 87-utbce-pam and has a history of operated craniopharyngioma [...] here early Friday, May 08, 2008, via [facility]. He had mild hypotension, 82/54, with [...] his care and he was transferred to [facility], and, in the course of that [...] Lc Cheng MD P - Job ID: [id number] Document ID: [id number] cc: MD Jose Aljeandro Walker MD Stewart [place], MD documented in this encounter Plan of Treatment Upcoming Encounters Date Type Department Care Team (Late st Contact Info) Description 10/01/2024 13:40 EDT Office Visit [facility] Endocrinology - [facility] [address] [place] [address] Wilder Zaidi, [address] [facility] [address] [place] [address] documented as of this encounter [...] ORDERABLE S Final Result Performing Organization Address [facility] Co de Phone Number [facility] [address] [place] [address] * CREATININE (06/01/2008 5:06 EST) Creatinine 0.71 0.6 - 1.2 mg/dl [facility] GFR, Calculated Age <18 ml/min/1.7 3m2 [facility] 06/01/2008 5:06 EST 06/01/2008 5:35 EST us Jodi Parr MD CHEMISTRY & BLOOD GAS ORDERABLE S Final Result Performing Organization Address [facility] Co de Phone Number [facility] [address] [place] [address] * BUN (06/01/2008 5:06 EST) BUN 16 8 - 21 mg/dl [facility] 06/01/2008 5:06 EST 06/01/2008 5:35 EST us Jodi Parr MD CHEMISTRY & BLOOD GAS ORDERABLE S Final Result Performing Organization Address [facility] de Phone Number [facility] [address] [place] [address] * (ABNORMAL) ELECTROLYTES (06/01/2008 5:06 EST) Sodium [...] [facility] de Phone Number [facility] [address] [place] [address] * ELECTROLYTES (05/31/2008 18:00 EST) Sodium 137 136 - 145 mEq/L [facility] Potassium 3.8 3.5 - 5.0 mEq/L [facility] Chloride 99 96 - 110 mEq/L [facility] CO2 24 24 - 32 mEq/L [facility] 05/31/2008 18:0 0 EST 05/31/2008 18:56 EST us Jodi Parr MD CHEMISTRY & BLOOD GAS ORDERABLE S Final Result Performing Organization Address [facility] Phone Number [facility] [address] [place] [address] * ELECTROLYTES (05/31/2008 12:20 EST) Sodium 136 136 - 145 mEq/L [facility] Potassium 3.5 3.5 - 5.0 mEq/L [facility] Chloride 97 96 - 110 mEq/L [facility] CO2 25 24 - 32 mEq/L [facility] 05/31/2008 12:2 0 EST 05/31/2008 12:32 EST us Jodi Parr MD CHEMISTRY & BLOOD GAS ORDERABLE S Final Result Performing Organization Address [facility] de Phone Number [facility] [address] [place] [address] * (ABNORMAL) GLUCOSE, SERUM (05/31/2008 6:00 EST) Glucose, Serum 67(L) 70 - 100 mg/dl [facility] 05/31/2008 6:00 EST 05/31/2008 6:24 EST us Jodi Parr MD CHEMISTRY & BLOOD GAS ORDERABLE S Final Result Performing Organization Address City/[facility]/ZIP Co de Phone Number [facility] [address] [place] [address] * CREATININE (05/31/2008 6:00 EST) Creatinine 0.70 0.6 - 1.2 mg/dl [facility] GFR, Calculated Age <18 ml/min/1.7 3m2 [facility] 05/31/2008 6:00 EST 05/31/2008 6:24 EST us Jodi Parr MD CHEMISTRY & BLOOD GAS ORDERABLE S Final Result Performing Organization Address [facility] Co de Phone Number [facility] [address] [place] [address] * BUN (05/31/2008 6:00 EST) BUN 18 8 - 21 mg/dl [facility] 05/31/2008 6:00 EST 05/31/2008 6:24 EST us Jodi Parr MD CHEMISTRY & BLOOD GAS ORDERABLE S Final Result Performing Organization Address [facility] Co de Phone Number [facility] [address] [place] [address] * (ABNORMAL) ELECTROLYTES (05/31/2008 6:00 EST) Sodium 135(L) 136 - 145 mEq/L [facility] Potassium 4.3 3.5 - 5.0 mEq/L [facility] Chloride 100 96 - 110 mEq/L [facility] CO2 22(L) 24 - 32 mEq/L [facility] 05/31/2008 6:00 EST 05/31/2008 6:24 EST us Jodi Parr MD CHEMISTRY & BLOOD GAS ORDERABLE S Final Result Performing Organization Address [facility]/ZIP Co de Phone Number [facility] [address] [place] [address] * (ABNORMAL) ELECTROLYTES (05/30/2008 18:00 EST) Sodium [...] ORDERABLE S Final Result Performing Organization Address [facility] de Phone Number [facility] [address] [place] [address] * ELECTROLYTES (05/30/2008 12:25 EST) Sodium 136 136 - 145 mEq/L [facility] Potassium 3.7 3.5 - 5.0 mEq/L [facility] Chloride 97 96 - 110 mEq/L [facility] CO2 25 24 - 32 mEq/L [facility] 05/30/2008 12:2 5 EST 05/30/2008 12:33 EST Jodi Parr MD CHEMISTRY & BLOOD GAS ORDERABLE S Final Result Performing Organization Address [facility] de Phone Number [facility] [address] [place] [address] * (ABNORMAL) GLUCOSE, SERUM (05/30/2008 5:10 EST) Glucose, Serum 63(L) 70 - 100 mg/dl [facility] 05/30/2008 5:10 EST 05/30/2008 5:32 EST Jodi Parr MD CHEMISTRY & BLOOD GAS ORDERABLE S Final Result Performing Organization Address [facility] Co de Phone Number [facility] [address] [place] [address] * CREATININE (05/30/2008 5:10 EST) Creatinine 0.70 0.6 - 1.2 mg/dl [facility] GFR, Calculated Age <18 ml/min/1.7 3m2 [facility] 05/30/2008 5:10 EST 05/30/2008 5:32 EST Jodi Parr MD CHEMISTRY & BLOOD GAS ORDERABLE S Final Result Performing Organization Address [facility] de Phone Number [facility] [address] [place] [address] * BUN (05/30/2008 5:10 EST) BUN 16 8 - 21 mg/dl [facility] 05/30/2008 5:10 EST 05/30/2008 5:32 EST Jodi Parr MD CHEMISTRY & BLOOD GAS ORDERABLE S Final Result Performing Organization Address [facility] de Phone Number [facility] [address] [place] [address] * (ABNORMAL) ELECTROLYTES (05/30/2008 5:10 EST) Sodium [...] [facility] de Phone Number [facility] [address] [place] [address] * (ABNORMAL) ELECTROLYTES (05/29/2008 18:00 EST) Sodium [...] ORDERABLE S Final Result Performing Organization Address [facility] Phone Number [facility] [address] [place] [address] * (ABNORMAL) ELECTROLYTES (05/29/2008 12:32 EST) Sodium [...] ORDERABLE S Final Result Performing Organization Address [facility] Phone Number [facility] [address] [place] [address] * (ABNORMAL) GLUCOSE, SERUM (05/29/2008 6:55 EST) Glucose, Serum 62(L) 70 - 100 mg/dl [facility] 05/29/2008 6:55 EST 05/29/2008 7:36 EST Jose Alejandro Castro MD CHEMISTRY & BLOOD GAS ORDERABLE S Final Result Performing Organization Address [facility] Phone Number [facility] [address] [place] [address] * CREATININE (05/29/2008 6:55 EST) Creatinine 0.60 0.6 - 1.2 mg/dl [facility] GFR, Calculated Age <18 ml/min/1.7 3m2 [facility] 05/29/2008 6:55 EST 05/29/2008 7:36 EST Jose Alejandro Castro MD CHEMISTRY & BLOOD GAS ORDERABLE S Final Result Performing Organization Address [facility] Co de Phone Number [facility] [address] [place] [address] * BUN (05/29/2008 6:55 EST) BUN 16 8 - 21 mg/dl [facility] 05/29/2008 6:55 EST 05/29/2008 7:36 EST Jose Alejandro Castro MD CHEMISTRY & BLOOD GAS ORDERABLE S Final Result Performing Organization Address [facility] de Phone Number [facility] [address] [place] [address] * (ABNORMAL) ELECTROLYTES (05/29/2008 6:55 EST) Sodium 134(L) 136 - 145 mEq/L [facility] Potassium 4.0 3.5 - 5.0 mEq/L [facility] Chloride 99 96 - 110 mEq/L [facility] CO2 22(L) 24 - 32 mEq/L [facility] 05/29/2008 6:55 EST 05/29/2008 7:36 EST Jose Alejandro Castro MD CHEMISTRY & BLOOD GAS ORDERABLE S Final Result Performing Organization Address [facility] de Phone Number [facility] [address] [place] [address] * ELECTROLYTES (05/28/2008 19:00 EST) Sodium 136 136 - 145 mEq/L [facility] Potassium 4.2 3.5 - 5.0 mEq/L [facility] Chloride 98 96 - 110 mEq/L [facility] CO2 26 24 - 32 mEq/L [facility] 05/28/2008 19:0 0 EST 05/28/2008 19:12 EST Jose Alejandro Castro MD CHEMISTRY & BLOOD GAS ORDERABLE S Final Result Performing Organization Address [facility] Co de Phone Number [facility] [address] [place] [address] * (ABNORMAL) GLUCOSE, SERUM (05/28/2008 6:59 EST) Glucose, Serum 66(L) 70 - 100 mg/dl [facility] 05/28/2008 6:59 EST 05/28/2008 6:59 EST Jose Alejandro Castro MD CHEMISTRY & BLOOD GAS ORDERABLE S Final Result Performing Organization Address [facility] de Phone Number [facility] [address] [place] [address] * (ABNORMAL) CREATININE (05/28/2008 6:59 EST) Creatinine 0.50(L) 0.6 - 1.2 mg/dl [facility] GFR, Calculated Age <18 ml/min/1.7 3m2 [facility] 05/28/2008 6:59 EST 05/28/2008 6:59 EST Jose Alejandro Castro MD CHEMISTRY & BLOOD GAS ORDERABLE S Final Result Performing Organization Address [facility] de Phone Number [facility] [address] [place] [address] * BUN (05/28/2008 6:59 EST) BUN 15 8 - 21 mg/dl [facility] 05/28/2008 6:59 EST 05/28/2008 6:59 EST us Jose Alejandro Castro MD CHEMISTRY & BLOOD GAS ORDERABLE S Final Result Performing Organization Address [facility] Co de Phone Number [facility] [address] [place] [address] * (ABNORMAL) ELECTROLYTES (05/28/2008 6:59 EST) Sodium 134(L) 136 - 145 mEq/L [facility] Potassium 4.4 3.5 - 5.0 mEq/L [facility] Chloride 99 96 - 110 mEq/L [facility] CO2 25 24 - 32 mEq/L [facility] 05/28/2008 6:59 EST 05/28/2008 6:59 EST us Jose Alejandro Castro MD CHEMISTRY & BLOOD GAS ORDERABLE S Final Result Performing Organization Address [facility] Co de Phone Number [facility] [address] [place] [address] * (ABNORMAL) CREATININE (05/27/2008 19:07 EST) Creatinine 0.50(L) 0.6 - 1.2 mg/dl [facility] GFR, Calculated Age <18 ml/min/1.7 3m2 [facility] 05/27/2008 19:0 7 EST 05/27/2008 19:07 EST us Jose Alejandro Castro MD CHEMISTRY & BLOOD GAS ORDERABLE S Final Result Performing Organization Address [facility]/ZIP Co de Phone Number [facility] [address] [place] [address] * BUN (05/27/2008 19:07 EST) BUN 16 8 - 21 mg/dl [facility] 05/27/2008 19:0 7 EST 05/27/2008 19:07 EST us Jose Alejandro Castro MD CHEMISTRY & BLOOD GAS ORDERABLE S Final Result Performing Organization Address [facility]/ZIP Co de Phone Number [facility] [address] [place] [address] * TESTS ADDED BY PHONE (05/27/2008 19:07 EST) Tests to be added STAT BUN,CREAT [facility] Who Called DR LADO [facility] Location Code M3 MELONIEMARSHA HILDA [facility] 05/27/2008 19:0 7 EST 05/27/2008 19:07 EST Jose Alejandro Castro MD CHEMISTRY & BLOOD GAS ORDERABLE S Final Result Performing Organization Address [facility] Co de Phone Number [facility] [address] [place] [address] * (ABNORMAL) ELECTROLYTES (05/27/2008 19:07 EST) Sodium [...] ORDERABLE S Final Result Performing Organization Address [facility] de Phone Number [facility] [address] [place] [address] * (ABNORMAL) GLUCOSE, GLUCOMETER (05/27/2008 16:21 EST) Glucose, Fingerstick 124(H) 70 - 100 mg/dl [facility] Reference Test Clerk ID [id number] Test Performed by Nursing Services [facility] 05/27/2008 16:2 1 EST 05/27/2008 23:27 EST Jose Alejandro Castro MD CHEMISTRY & BLOOD GAS ORDERABLE S Final Result Performing Organization Address [facility] de Phone Number [facility] [address] [place] [address] * (ABNORMAL) ELECTROLYTES (05/27/2008 16:21 EST) Sodium [...] de Phone Number [facility] [address] [place] [address] * GLUCOSE, GLUCOMETER (05/27/2008 12:26 EST) Glucose, Fingerstick 87 70 - 100 mg/dl [facility] Reference Test Clerk ID [id number] Test Performed by Nursing Services [facility] 05/27/2008 12:2 6 EST 05/27/2008 23:27 EST Jose Alejandro Castro MD CHEMISTRY & BLOOD GAS ORDERABLE S Final Result Performing Organization Address [facility] Phone Number [facility] [address] [place] [address] * BACTERIAL CULTURE, URINE (05/27/2008 12:04 EST) Specimen Description Urine [facility] Result No growth [facility] Report Status Final 05/28/2008 [facility] 05/27/2008 12:0 4 EST 05/27/2008 13:14 EST Jose Alejandro Castro MD MICROBIOLOGY - GENERAL ORDERABL ES Final Result Performing Organization Address [facility] de Phone Number [facility] [address] [place] [address] * (ABNORMAL) URINALYSIS, CHEMICAL (05/27/2008 12:04 EST) Color, UA Yellow [facility] Clarity, UA Clear [facility] Glucose, UA Norm NORM [facility] Bilirubin, UA Neg NEG [facility] Ketones, UA Neg NEG [facility] Specific [place], Urine >1.030(H) 1.005 - 1.02 [facility] [...] ORDERABLES Final Res ult Performing Organization Address [facility] Co de Phone Number [facility] [address] [place] [address] * URINE MICROSCOPIC (05/27/2008 12:04 EST) WBC, [...] ORDERABLES Final Res ult Performing Organization Address [facility] Co de Phone Number [facility] [address] [place] [address] * (ABNORMAL) ELECTROLYTES (05/27/2008 11:45 EST) Sodium [...] ORDERABLE S Final Result Performing Organization Address [facility] de Phone Number [facility] [address] [place] [address] * GLUCOSE, SERUM (05/27/2008 6:45 EST) Glucose, Serum 74 70 - 100 mg/dl [facility] 05/27/2008 6:45 EST 05/27/2008 6:55 EST Jose Alejandro Castro MD CHEMISTRY & BLOOD GAS ORDERABLE S Final Result Performing Organization Address [facility] Phone Number [facility] [address] [place] [address] * (ABNORMAL) ELECTROLYTES (05/27/2008 6:45 EST) Sodium [...] de Phone Number [facility] [address] [place] [address] * CREATININE (05/27/2008 3:00 EST) Creatinine 0.60 0.6 - 1.2 mg/dl [facility] GFR, Calculated Age <18 ml/min/1.7 3m2 [facility] 05/27/2008 3:00 EST 05/27/2008 3:06 EST Jose Alejandro Castro MD CHEMISTRY & BLOOD GAS ORDERABLE S Final Result Performing Organization Address [facility] de Phone Number [facility] [address] [place] [address] * (ABNORMAL) BUN (05/27/2008 3:00 EST) BUN 22(H) 8 - 21 mg/dl [facility] 05/27/2008 3:00 EST 05/27/2008 3:06 EST Jose Alejandro Castro MD CHEMISTRY & BLOOD GAS ORDERABLE S Final Result Performing Organization Address [facility] de Phone Number [facility] [address] [place] [address] * (ABNORMAL) ELECTROLYTES (05/27/2008 3:00 EST) Sodium 132(L) 136 - 145 mEq/L [facility] Potassium 4.1 3.5 - 5.0 mEq/L [facility] Chloride 98 96 - 110 mEq/L [facility] CO2 26 24 - 32 mEq/L [facility] 05/27/2008 3:00 EST 05/27/2008 3:06 EST Jose Alejandro Castro MD CHEMISTRY & BLOOD GAS ORDERABLE S Final Result Performing Organization Address [facility] de Phone Number [facility] [address] [place] [address] * (ABNORMAL) ELECTROLYTES (05/26/2008 23:04 EST) Sodium [...] ORDERABLE S Final Result Performing Organization Address [facility] de Phone Number [facility] [address] [place] [address] * ELECTROLYTES (05/26/2008 19:14 EST) Sodium 136 [...] [facility] de Phone Number [facility] [address] [place] [address] * (ABNORMAL) ELECTROLYTES (05/26/2008 15:47 EST) Sodium 134(L) 136 - 145 mEq/L [facility] Potassium 4.5 3.5 - 5.0 mEq/L [facility] Chloride 99 96 - 110 mEq/L [facility] CO2 25 24 - 32 mEq/L [facility] 05/26/2008 15:4 7 EST 05/26/2008 15:47 EST Jose Alejandro Castro MD CHEMISTRY & BLOOD GAS ORDERABLE S Final Result Performing Organization Address [facility] de Phone Number [facility] [address] [place] [address] * GLUCOSE, GLUCOMETER (05/26/2008 15:44 EST) Glucose, Fingerstick 98 70 - 100 mg/dl [facility] Reference Test Clerk ID [id number] Test Performed by Nursing Services [facility] 05/26/2008 15:4 4 EST 05/26/2008 23:27 EST Jose Alejandro Castro MD CHEMISTRY & BLOOD GAS ORDERABLE S Final Result Performing Organization Address [facility] Phone Number [facility] [address] [place] [address] * ELECTROLYTES (05/26/2008 11:50 EST) Sodium 136 136 - 145 mEq/L [facility] Potassium 4.4 3.5 - 5.0 mEq/L [facility] Chloride 100 96 - 110 mEq/L [facility] CO2 24 24 - 32 mEq/L [facility] 05/26/2008 11:5 0 EST 05/26/2008 11:50 EST Jose Alejandro Castro MD CHEMISTRY & BLOOD GAS ORDERABLE S Final Result Performing Organization Address [facility] Phone Number [facility] [facility] [address] [place] [address] * (ABNORMAL) GLUCOSE, GLUCOMETER (05/26/2008 11:39 EST) Glucose, Fingerstick 107(H) 70 - 100 mg/dl [facility] Reference Test Clerk ID [id number] Test Performed by Nursing Services [facility] 05/26/2008 11:3 9 EST 05/26/2008 23:27 EST Jose Alejandro Castro MD CHEMISTRY & BLOOD GAS ORDERABLE S Final Result Performing Organization Address [facility] Phone Number [facility] [address] [place] [address] * ELECTROLYTES (05/26/2008 7:09 EST) Sodium 138 136 - 145 mEq/L [facility] Potassium 4.5 3.5 - 5.0 mEq/L [facility] Chloride 102 96 - 110 mEq/L [facility] CO2 25 24 - 32 mEq/L [facility] 05/26/2008 7:09 EST 05/26/2008 7:09 EST Jose Alejandro Castro MD CHEMISTRY & BLOOD GAS ORDERABLE S Final Result [facility] [address] [place] [address] * GLUCOSE, SERUM (05/26/2008 2:58 EST) Glucose, Serum 79 70 - 100 mg/dl [facility] Comment:Slightly lipemic 05/26/2008 2:58 EST 05/26/2008 2:58 EST Jose Alejandro Castro MD CHEMISTRY & BLOOD GAS ORDERABLE S Final Result Performing Organization Address [facility]/ZIP Co de Phone Number [facility] [address] [place] [address] * CREATININE (05/26/2008 2:58 EST) Creatinine 0.70 0.6 - 1.2 mg/dl [facility] Comment:Slightly lipemic GFR, Calculated Age <18 Slightly lipemic ml/min/1. 73m2 [facility] 05/26/2008 2:58 EST 05/26/2008 2:58 EST Jose Alejandro Castro MD CHEMISTRY & BLOOD GAS ORDERABLE S Final Result Performing Organization Address [facility]/ZIP Co de Phone Number [facility] [address] [place] [address] * BUN (05/26/2008 2:58 EST) BUN 17 8 - 21 mg/dl [facility] Comment:Slightly lipemic 05/26/2008 2:58 EST 05/26/2008 2:58 EST Jose Alejandro Castro MD CHEMISTRY & BLOOD GAS ORDERABLE S Final Result [facility] [address] [place] [address] * ELECTROLYTES (05/26/2008 2:58 EST) Sodium 137 [...] ORDERABLE S Final Result Performing Organization Address [facility] de Phone Number [facility] [address] [place] [address] * ELECTROLYTES (05/26/2008 0:00 EST) Sodium 139 [...] [facility] de Phone Number [facility] [address] [place] [address] * (ABNORMAL) ELECTROLYTES (05/25/2008 19:59 EST) Sodium [...] ORDERABLE S Final Result Performing Organization Address [facility] de Phone Number [facility] [address] [place] [address] * ELECTROLYTES (05/25/2008 16:20 EST) Sodium 137 [...] de Phone Number [facility] [address] [place] [address] * ELECTROLYTES (05/25/2008 13:05 EST) Sodium 138 [...] de Phone Number [facility] [address] [place] [address] * GLUCOSE, GLUCOMETER (05/25/2008 13:00 EST) Glucose, Fingerstick 88 70 - 100 mg/dl [facility] Reference Test Clerk ID [id number] Test Performed by Nursing Services [facility] 05/25/2008 13:0 0 EST 05/25/2008 23:23 EST us Jose Alejandro Castro MD CHEMISTRY & BLOOD GAS ORDERABLE S Final Result Performing Organization Address [facility] Co de Phone Number [facility] [address] [place] [address] * MRSA MOLECULAR DETECTION (05/25/2008 12:40 EST) Specimen Description Tomás [facility]CHHILDA [facility] Result NEGATIVE for Methicillin Resistant Staphylococcus aureus DNA by PCR. [facility] Report Status Final 05/26/2008 [facility] 05/25/2008 12:4 0 EST 05/25/2008 14:30 EST Jose Alejandro Castro MD MICROBIOLOGY - GENERAL ORDERABL ES Final Result Performing Organization Address [facility] Co de Phone Number [facility] [address] [place] [address] * ELECTROLYTES (05/25/2008 10:00 EST) Sodium 139 136 - 145 mEq/L [facility] Potassium 4.5 3.5 - 5.0 mEq/L [facility] Chloride 101 96 - 110 mEq/L [facility] CO2 26 24 - 32 mEq/L [facility] 05/25/2008 10:0 0 EST 05/25/2008 10:00 EST Jose Alejandro Castro MD CHEMISTRY & BLOOD GAS ORDERABLE S Final Result Performing Organization Address [facility] de Phone Number [facility] [address] [place] [address] * (ABNORMAL) ELECTROLYTES (05/25/2008 5:52 EST) Sodium [...] ORDERABLE S Final Result Performing Organization Address [facility] Co de Phone Number [facility] [address] [place] [address] * GLUCOSE, SERUM (05/25/2008 2:54 EST) Glucose, Serum 75 70 - 100 mg/dl [facility] 05/25/2008 2:54 EST 05/25/2008 2:56 EST Jose Alejandro Castro MD CHEMISTRY & BLOOD GAS ORDERABLE S Final Result Performing Organization Address [facility] Co de Phone Number [facility] [address] [place] [address] * BUN (05/25/2008 2:54 EST) BUN 16 8 - 21 mg/dl [facility] 05/25/2008 2:54 EST 05/25/2008 2:56 EST Jose Alejandro Castro MD CHEMISTRY & BLOOD GAS ORDERABLE S Final Result Performing Organization Address [facility] Co de Phone Number [facility] [address] [place] [address] * (ABNORMAL) ELECTROLYTES (05/25/2008 2:54 EST) Sodium 132(L) 136 - 145 mEq/L [facility] Potassium 4.4 3.5 - 5.0 mEq/L [facility] Chloride 98 96 - 110 mEq/L [facility] CO2 25 24 - 32 mEq/L [facility] 05/25/2008 2:54 EST 05/25/2008 2:56 EST Jose Alejandro Castro MD CHEMISTRY & BLOOD GAS ORDERABLE S Final Result Performing Organization Address [facility] Co de Phone Number [facility] [address] [place] [address] * (ABNORMAL) ELECTROLYTES (05/24/2008 23:58 EST) Sodium [...] ORDERABLE S Final Result Performing Organization Address [facility] Co de Phone Number [facility] [address] [place] [address] * (ABNORMAL) ELECTROLYTES (05/24/2008 19:45 EST) Sodium [...] [facility] de Phone Number [facility] [address] [place] [address] * ELECTROLYTES (05/24/2008 17:36 EST) Sodium 136 136 - 145 mEq/L [facility] Potassium 4.4 3.5 - 5.0 mEq/L [facility] Chloride 99 96 - 110 mEq/L [facility] CO2 24 24 - 32 mEq/L [facility] 05/24/2008 17:3 6 EST 05/24/2008 17:37 EST Jose Alejandro Castro MD CHEMISTRY & BLOOD GAS ORDERABLE S Final Result Performing Organization Address [facility] Co de Phone Number [facility] [address] [place] [address] * ELECTROLYTES (05/24/2008 15:20 EST) Sodium 137 136 - 145 mEq/L [facility] Potassium 4.1 3.5 - 5.0 mEq/L [facility] Chloride 100 96 - 110 mEq/L [facility] CO2 25 24 - 32 mEq/L [facility] 05/24/2008 15:2 0 EST 05/24/2008 15:25 EST Jose Alejandro Castro MD CHEMISTRY & BLOOD GAS ORDERABLE S Final Result Performing Organization Address [facility] de Phone Number [facility] [address] [place] [address] * (ABNORMAL) ELECTROLYTES (05/24/2008 12:00 EST) Sodium [...] [facility] de Phone Number [facility] [address] [place] [address] * CREATININE (05/24/2008 9:47 EST) Creatinine 0.60 0.6 - 1.2 mg/dl [facility] GFR, Calculated Age <18 ml/min/1.7 3m2 [facility] 05/24/2008 9:47 EST 05/24/2008 9:47 EST us Jose Alejandro Castro MD CHEMISTRY & BLOOD GAS ORDERABLE S Final Result Performing Organization Address [facility] de Phone Number [facility] [address] [place] [address] * (ABNORMAL) ELECTROLYTES (05/24/2008 9:47 EST) Sodium 134(L) 136 - 145 mEq/L [facility] Potassium 4.5 3.5 - 5.0 mEq/L [facility] Chloride 96 96 - 110 mEq/L [facility] CO2 27 24 - 32 mEq/L [facility] 05/24/2008 9:47 EST 05/24/2008 9:47 EST Jose Alejandro Castro MD CHEMISTRY & BLOOD GAS ORDERABLE S Final Result Performing Organization Address [facility] Co de Phone Number [facility] [address] [place] [address] * (ABNORMAL) GLUCOSE, GLUCOMETER (05/24/2008 7:24 EST) Glucose, Fingerstick 67(L) 70 - 100 mg/dl [facility] Reference Test Clerk ID [id number] Test Performed by Nursing Services [facility] 05/24/2008 7:24 EST 05/24/2008 23:10 EST Jose Alejandro Castro MD CHEMISTRY & BLOOD GAS ORDERABLE S Final Result Performing Organization Address [facility] Co de Phone Number [facility] [address] [place] [address] * CREATININE (05/24/2008 6:05 EST) Creatinine 0.60 0.6 - 1.2 mg/dl [facility] GFR, Calculated Age <18 ml/min/1.7 3m2 [facility] 05/24/2008 6:05 EST 05/24/2008 6:11 EST us Jose Alejandro Castro MD CHEMISTRY & BLOOD GAS ORDERABLE S Final Result Performing Organization Address [facility] Co de Phone Number [facility] [address] [place] [address] * TESTS ADDED BY PHONE (05/24/2008 6:05 EST) Tests to be added STAT CREAT [facility] Who Called JOSELUIS Packer FOR DR T[facility]IE [facility] Location Code M3 [facility] 05/24/2008 6:05 EST 05/24/2008 6:11 EST us Jose Alejandro Castro MD CHEMISTRY & BLOOD GAS ORDERABLE S Final Result Performing Organization Address [facility] Co de Phone Number [facility] [address] [place] [address] * (ABNORMAL) GLUCOSE, SERUM (05/24/2008 6:05 EST) Glucose, Serum 66(L) 70 - 100 mg/dl [facility] 05/24/2008 6:05 EST 05/24/2008 6:11 EST us Jose Alejandro Castro MD CHEMISTRY & BLOOD GAS ORDERABLE S Final Result Performing Organization Address [facility] de Phone Number [facility] [address] [place] [address] * BUN (05/24/2008 6:05 EST) BUN 16 8 - 21 mg/dl [facility] 05/24/2008 6:05 EST 05/24/2008 6:11 EST us Jose Alejandro Castro MD CHEMISTRY & BLOOD GAS ORDERABLE S Final Result Performing Organization Address [facility] de Phone Number [facility] [address] [place] [address] * (ABNORMAL) ELECTROLYTES (05/24/2008 6:05 EST) Sodium [...] S Final Result [facility] [address] [place] [address] * (ABNORMAL) ELECTROLYTES (05/24/2008 3:20 EST) Sodium [...] ORDERABLE S Final Result Performing Organization Address [facility]/ZIP Co de Phone Number [facility] [address] [place] [address] * (ABNORMAL) GLUCOSE, GLUCOMETER (05/24/2008 0:07 EST) Glucose, Fingerstick 119(H) 70 - 100 mg/dl [facility] Reference Test Clerk ID [id number] Test Performed by Nursing Services [facility] 05/24/2008 0:07 EST 05/24/2008 23:10 EST Jose Alejandro Castro MD CHEMISTRY & BLOOD GAS ORDERABLE S Final Result Performing Organization Address [facility]/ZIP Co de Phone Number [facility] [address] [place] [address] * (ABNORMAL) ELECTROLYTES (05/24/2008 0:05 EST) Sodium [...] [facility] de Phone Number [facility] [address] [place] [address] * ELECTROLYTES (05/23/2008 21:00 EST) Sodium 138 136 - 145 mEq/L [facility] Potassium 3.8 3.5 - 5.0 mEq/L [facility] Chloride 99 96 - 110 mEq/L [facility] CO2 25 24 - 32 mEq/L [facility] 05/23/2008 21:0 0 EST 05/23/2008 21:07 EST Jose Alejandro Castro MD CHEMISTRY & BLOOD GAS ORDERABLE S Final Result Performing Organization Address [facility] Phone Number [facility] [address] [place] [address] * ELECTROLYTES (05/23/2008 18:24 EST) Sodium 137 136 - 145 mEq/L [facility] Potassium 4.9 3.5 - 5.0 mEq/L [facility] Chloride 99 96 - 110 mEq/L [facility] CO2 27 24 - 32 mEq/L [facility] 05/23/2008 18:2 4 EST 05/23/2008 18:24 EST Jose Alejandro Castro MD CHEMISTRY & BLOOD GAS ORDERABLE S Final Result Performing Organization Address [facility] de Phone Number [facility] [address] [place] [address] * ELECTROLYTES (05/23/2008 15:41 EST) Sodium 137 136 - 145 mEq/L [facility] Potassium 4.1 3.5 - 5.0 mEq/L [facility] Chloride 97 96 - 110 mEq/L [facility] CO2 26 24 - 32 mEq/L [facility] 05/23/2008 15:4 1 EST 05/23/2008 15:41 EST Jose Alejandro Castro MD CHEMISTRY & BLOOD GAS ORDERABLE S Final Result Performing Organization Address [facility] de Phone Number [facility] [address] [place] [address] * ELECTROLYTES (05/23/2008 11:58 EST) Sodium 137 [...] [facility] de Phone Number [facility] [address] [place] [address] * ELECTROLYTES (05/23/2008 9:15 EST) Sodium 139 136 - 145 mEq/L [facility] Potassium 4.0 3.5 - 5.0 mEq/L [facility] Chloride 100 96 - 110 mEq/L [facility] CO2 26 24 - 32 mEq/L [facility] 05/23/2008 9:15 EST 05/23/2008 9:15 EST Jose Alejandro Castro MD CHEMISTRY & BLOOD GAS ORDERABLE S Final Result Performing Organization Address [facility] de Phone Number [facility] [address] [place] [address] * GLUCOSE, GLUCOMETER (05/23/2008 9:11 EST) Glucose, Fingerstick 90 70 - 100 mg/dl [facility] Reference Test Clerk ID [id number] Test Performed by Nursing Services [facility] 05/23/2008 9:11 EST 05/23/2008 23:07 EST Jose Alejandro Castro MD CHEMISTRY & BLOOD GAS ORDERABLE S Final Result Performing Organization Address [facility]/State/ZIP Co de Phone Number [facility] [address] [place] [address] * CREATININE (05/23/2008 6:00 EST) Creatinine 0.60 0.6 - 1.2 mg/dl [facility] GFR, Calculated Age <18 ml/min/1.7 3m2 [facility] 05/23/2008 6:00 EST 05/23/2008 6:11 EST Jose Alejandro Castro MD CHEMISTRY & BLOOD GAS ORDERABLE S Final Result Performing Organization Address [facility] Co de Phone Number [facility] [address] [place] [address] * BUN (05/23/2008 6:00 EST) BUN 13 8 - 21 mg/dl [facility] 05/23/2008 6:00 EST 05/23/2008 6:11 EST Jose Alejandro Castro MD CHEMISTRY & BLOOD GAS ORDERABLE S Final Result Performing Organization Address [facility] de Phone Number [facility] [address] [place] [address] * (ABNORMAL) ELECTROLYTES (05/23/2008 6:00 EST) Sodium 134(L) 136 - 145 mEq/L [facility] Potassium 4.4 3.5 - 5.0 mEq/L [facility] Chloride 99 96 - 110 mEq/L [facility] CO2 25 24 - 32 mEq/L [facility] 05/23/2008 6:00 EST 05/23/2008 6:11 EST Jose Alejandro Castro MD CHEMISTRY & BLOOD GAS ORDERABLE S Final Result Performing Organization Address [facility]/ZIP Co de Phone Number [facility] [address] [place] [address] * (ABNORMAL) GLUCOSE, GLUCOMETER (05/23/2008 3:59 EST) Glucose, Fingerstick 105(H) 70 - 100 mg/dl [facility] Reference Test Clerk ID [id number] Test Performed by Nursing Services [facility] 05/23/2008 3:59 EST 05/23/2008 23:07 EST Jose Alejandro Castro MD CHEMISTRY & BLOOD GAS ORDERABLE S Final Result Performing Organization Address [facility] Co de Phone Number [facility] [address] [place] [address] * GLUCOSE, SERUM (05/23/2008 3:00 EST) Glucose, Serum 76 70 - 100 mg/dl [facility] 05/23/2008 3:00 EST 05/23/2008 3:05 EST Jose Alejandro Castro MD CHEMISTRY & BLOOD GAS ORDERABLE S Final Result Performing Organization Address [facility] de Phone Number [facility] [address] [place] [address] * (ABNORMAL) ELECTROLYTES (05/23/2008 3:00 EST) Sodium 132(L) 136 - 145 mEq/L [facility] Potassium 4.2 3.5 - 5.0 mEq/L [facility] Chloride 99 96 - 110 mEq/L [facility] CO2 24 24 - 32 mEq/L [facility] 05/23/2008 3:00 EST 05/23/2008 3:05 EST Jose Alejandro Castro MD CHEMISTRY & BLOOD GAS ORDERABLE S Final Result Performing Organization Address [facility] de Phone Number [facility] [address] [place] [address] * (ABNORMAL) GLUCOSE, GLUCOMETER (05/23/2008 0:16 EST) Glucose, Fingerstick 104(H) 70 - 100 mg/dl [facility] Reference Test Clerk ID [id number] Test Performed by Nursing Services [facility] 05/23/2008 0:16 EST 05/23/2008 23:07 EST Jose Alejandro Castro MD CHEMISTRY & BLOOD GAS ORDERABLE S Final Result Performing Organization Address [facility] de Phone Number [facility] [address] [place] [address] * (ABNORMAL) ELECTROLYTES (05/23/2008 0:15 EST) Sodium 133(L) 136 - 145 mEq/L [facility] Potassium 4.1 3.5 - 5.0 mEq/L [facility] Chloride 95(L) 96 - 110 mEq/L [facility] CO2 26 24 - 32 mEq/L [facility] 05/23/2008 0:15 EST 05/23/2008 0:23 EST Jose Alejandro Castro MD CHEMISTRY & BLOOD GAS ORDERABLE S Final Result Performing Organization Address [facility] de Phone Number [facility] [address] [place] [address] * GLUCOSE, SERUM (05/22/2008 21:25 EST) Glucose, Serum 90 70 - 100 mg/dl [facility] 05/22/2008 21:2 5 EST 05/22/2008 21:32 EST Jose Alejandro Castro MD CHEMISTRY & BLOOD GAS ORDERABLE S Final Result Performing Organization Address [facility] de Phone Number [facility] [address] [place] [address] * (ABNORMAL) ELECTROLYTES (05/22/2008 21:25 EST) Sodium [...] ORDERABLE S Final Result Performing Organization Address [facility] Phone Number [facility] [address] [place] [address] * (ABNORMAL) ELECTROLYTES (05/22/2008 18:10 EST) Sodium 134(L) 136 - 145 mEq/L [facility] Potassium 4.5 3.5 - 5.0 mEq/L [facility] Chloride 96 96 - 110 mEq/L [facility] CO2 26 24 - 32 mEq/L [facility] 05/22/2008 18:1 0 EST 05/22/2008 18:12 EST Jose Alejandro Castor MD CHEMISTRY & BLOOD GAS ORDERABLE S Final Result Performing Organization Address [facility] Phone Number [facility] [address] [place] [address] * (ABNORMAL) GLUCOSE, GLUCOMETER (05/22/2008 18:08 EST) Glucose, Fingerstick 101(H) 70 - 100 mg/dl [facility] Reference Test Clerk ID [id number] Test Performed by Nursing Services [facility] 05/22/2008 18:0 8 EST 05/22/2008 23:44 EST Jose Alejandro Castro MD CHEMISTRY & BLOOD GAS ORDERABLE S Final Result Performing Organization Address [facility] Phone Number [facility] [address] [place] [address] * (ABNORMAL) ELECTROLYTES (05/22/2008 14:22 EST) Sodium [...] [facility] de Phone Number [facility] [address] [place] [address] * (ABNORMAL) ELECTROLYTES (05/22/2008 10:11 EST) Sodium [...] [facility] de Phone Number [facility] [address] [place] [address] * ELECTROLYTES (05/22/2008 6:25 EST) Sodium 136 136 - 145 mEq/L [facility] Potassium 4.1 3.5 - 5.0 mEq/L [facility] Chloride 102 96 - 110 mEq/L [facility] CO2 25 24 - 32 mEq/L [facility] 05/22/2008 6:25 EST 05/22/2008 6:33 EST Jose Alejandro Castro MD CHEMISTRY & BLOOD GAS ORDERABLE S Final Result Performing Organization Address [facility] Co de Phone Number [facility] [address] [place] [address] * CREATININE (05/22/2008 3:15 EST) Creatinine 0.70 0.6 - 1.2 mg/dl [facility] GFR, Calculated Age <18 ml/min/1.7 3m2 [facility] 05/22/2008 3:15 EST 05/22/2008 3:20 EST Jose Alejandro Castro MD CHEMISTRY & BLOOD GAS ORDERABLE S Final Result Performing Organization Address [facility] de Phone Number [facility] [address] [place] [address] * BUN (05/22/2008 3:15 EST) BUN 15 8 - 21 mg/dl [facility] 05/22/2008 3:15 EST 05/22/2008 3:20 EST Jose Alejandro Castro MD CHEMISTRY & BLOOD GAS ORDERABLE S Final Result Performing Organization Address [facility] de Phone Number [facility] [address] [place] [address] * ELECTROLYTES (05/22/2008 3:15 EST) Sodium 137 136 - 145 mEq/L [facility] Potassium 4.2 3.5 - 5.0 mEq/L [facility] Chloride 103 96 - 110 mEq/L [facility] CO2 24 24 - 32 mEq/L [facility] 05/22/2008 3:15 EST 05/22/2008 3:20 EST Result [facility] Jose Alejandro Castro MD CHEMISTRY & BLOOD GAS ORDERABLE S Final Result Performing Organization Address [facility] Co de Phone Number [facility] [address] [place] [address] * GLUCOSE, GLUCOMETER (05/22/2008 3:14 EST) Glucose, Fingerstick 97 70 - 100 mg/dl [facility] Reference Test Clerk ID [id number] Test Performed by Nursing Services [facility] 05/22/2008 3:14 EST 05/22/2008 23:43 EST Jose Alejandro Castro MD CHEMISTRY & BLOOD GAS ORDERABLE S Final Result Performing Organization Address [facility] Co de Phone Number [facility] [address] [place] [address] * GLUCOSE, GLUCOMETER (05/21/2008 23:09 EST) Glucose, Fingerstick 82 70 - 100 mg/dl [facility] Reference Test Clerk ID [id number] Test Performed by Nursing Services [facility] 05/21/2008 23:0 9 EST 05/21/2008 23:11 EST Jose Alejandro Castro MD CHEMISTRY & BLOOD GAS ORDERABLE S Final Result Performing Organization Address [facility] de Phone Number [facility] [address] [place] [address] * ELECTROLYTES (05/21/2008 23:05 EST) Sodium 140 136 - 145 mEq/L [facility] Potassium 4.5 3.5 - 5.0 mEq/L [facility] Chloride 105 96 - 110 mEq/L [facility] CO2 24 24 - 32 mEq/L [facility] 05/21/2008 23:0 5 EST 05/21/2008 23:18 EST Jose Alejandro Castro MD CHEMISTRY & BLOOD GAS ORDERABLE S Final Result Performing Organization Address [facility] de Phone Number [facility] [address] [place] [address] * ELECTROLYTES (05/21/2008 19:02 EST) Sodium 141 136 - 145 mEq/L [facility] Potassium 4.1 3.5 - 5.0 mEq/L [facility] Chloride 103 96 - 110 mEq/L [facility] CO2 26 24 - 32 mEq/L [facility] 05/21/2008 19:0 2 EST 05/21/2008 19:04 EST Jose Alejandro Castro MD CHEMISTRY & BLOOD GAS ORDERABLE S Final Result Performing Organization Address [facility] de Phone Number [facility] [address] [place] [address] * ELECTROLYTES (05/21/2008 15:20 EST) Sodium 141 [...] [facility] de Phone Number [facility] [address] [place] [address] * (ABNORMAL) GLUCOSE, GLUCOMETER (05/21/2008 10:49 EST) Glucose, Fingerstick 137(H) 70 - 100 mg/dl [facility] Reference Test Clerk ID [id number] Test Performed by Nursing Services [facility] 05/21/2008 10:4 9 EST 05/21/2008 23:05 EST us Jose Alejandro Castro MD CHEMISTRY & BLOOD GAS ORDERABLE S Final Result Performing Organization Address [facility] de Phone Number [facility] [address] [place] [address] * ELECTROLYTES (05/21/2008 10:44 EST) Sodium 143 [...] ORDERABLE S Final Result Performing Organization Address [facility]/State/ZIP Co de Phone Number [facility] [address] [place] [address] * (ABNORMAL) GLUCOSE, SERUM (05/21/2008 6:17 EST) Glucose, Serum 66(L) 70 - 100 mg/dl [facility] 05/21/2008 6:17 EST 05/21/2008 6:17 EST Jose Alejandro Castro MD CHEMISTRY & BLOOD GAS ORDERABLE S Final Result Performing Organization Address [facility] Co de Phone Number [facility] [address] [place] [address] * CREATININE (05/21/2008 6:17 EST) Pathologist [facility] Creatinine 0.66 0.6 - 1.2 mg/dl [facility] GFR, Calculated Age <18 ml/min/1.7 3m2 [facility] 05/21/2008 6:17 EST 05/21/2008 6:17 EST Jose Alejandro Castro MD CHEMISTRY & BLOOD GAS ORDERABLE S Final Result Performing Organization Address [facility] de Phone Number [facility] [address] [place] [address] * BUN (05/21/2008 6:17 EST) BUN 12 8 - 21 mg/dl [facility] 05/21/2008 6:17 EST 05/21/2008 6:17 EST Jose Alejandro Castro MD CHEMISTRY & BLOOD GAS ORDERABLE S Final Result Performing Organization Address City/[facility]/ZIP Co de Phone Number [facility] [address] [place] [address] * ELECTROLYTES (05/21/2008 6:17 EST) Sodium 142 136 - 145 mEq/L [facility] Potassium 4.3 3.5 - 5.0 mEq/L [facility] Chloride 109 96 - 110 mEq/L [facility] CO2 26 24 - 32 mEq/L [facility] 05/21/2008 6:17 EST 05/21/2008 6:17 EST Jose Alejandro Castro MD CHEMISTRY & BLOOD GAS ORDERABLE S Final Result Performing Organization Address [facility] de Phone Number [facility] [address] [place] [address] * (ABNORMAL) ELECTROLYTES (05/21/2008 2:10 EST) Sodium 144 136 - 145 mEq/L [facility] Potassium 4.9 3.5 - 5.0 mEq/L [facility] Chloride 112(H) 96 - 110 mEq/L [facility] CO2 22(L) 24 - 32 mEq/L [facility] 05/21/2008 2:10 EST 05/21/2008 2:10 EST Jose Alejandro Castro MD CHEMISTRY & BLOOD GAS ORDERABLE S Final Result Performing Organization Address [facility] Co de Phone Number [facility] [address] [place] [address] * GLUCOSE, SERUM (05/20/2008 22:13 EST) Glucose, Serum 89 70 - 100 mg/dl [facility] 05/20/2008 22:1 3 EST 05/20/2008 22:13 EST Jose Alejandro Castro MD CHEMISTRY & BLOOD GAS ORDERABLE S Final Result Performing Organization Address [facility] Co de Phone Number [facility] [address] [place] [address] * (ABNORMAL) ELECTROLYTES (05/20/2008 22:13 EST) Sodium [...] ORDERABLE S Final Result Performing Organization Address [facility] de Phone Number [facility] [address] [place] [address] * ELECTROLYTES (05/20/2008 18:35 EST) Sodium 143 [...] ORDERABLE S Final Result Performing Organization Address [facility] Phone Number [facility] [address] [place] [address] * ELECTROLYTES (05/20/2008 15:21 EST) Sodium 140 [...] ORDERABLE S Final Result Performing Organization Address [facility] Phone Number [facility] [address] [place] [address] * ELECTROLYTES (05/20/2008 11:47 EST) Sodium 140 [...] ORDERABLE S Final Result Performing Organization Address [facility] Co de Phone Number [facility] [address] [place] [address] * PREALBUMIN (05/20/2008 9:38 EST) Prealbumin 33 mg/dl [facility] 05/20/2008 9:38 EST 05/20/2008 9:38 EST Jose Alejandro Castro MD CHEMISTRY & BLOOD GAS ORDERABLE S Final Result Performing Organization Address [facility] Co de Phone Number [facility] [address] [place] [address] * (ABNORMAL) ELECTROLYTES (05/20/2008 9:38 EST) Sodium 133(L) 136 - 145 mEq/L [facility] Potassium 4.8 3.5 - 5.0 mEq/L [facility] Chloride 96 96 - 110 mEq/L [facility] CO2 28 24 - 32 mEq/L [facility] 05/20/2008 9:38 EST 05/20/2008 9:38 EST Jose Alejandro Castro MD CHEMISTRY & BLOOD GAS ORDERABLE S Final Result Performing Organization Address [facility]/ZIP Co de Phone Number [facility] [address] [place] [address] * TESTS ADDED BY PHONE (05/20/2008 9:38 EST) Tests to be added PAL[facility] Who Called [facility] Location Code M3 [facility] 05/20/2008 9:38 EST 05/20/2008 9:38 EST Jose Alejandro Castro MD CHEMISTRY & BLOOD GAS ORDERABLE S Final Result Performing Organization Address [facility]/ZIP Co de Phone Number [facility] [address] [place] [address] * (ABNORMAL) ELECTROLYTES (05/20/2008 5:50 EST) Sodium 128(L) 136 - 145 mEq/L [facility] Potassium 4.5 3.5 - 5.0 mEq/L [facility] Chloride 93(L) 96 - 110 mEq/L [facility] CO2 26 24 - 32 mEq/L [facility] 05/20/2008 5:50 EST 05/20/2008 5:58 EST Jose Alejandro Castro MD CHEMISTRY & BLOOD GAS ORDERABLE S Final Result Performing Organization Address [facility] Co de Phone Number [facility] [address] [place] [address] * (ABNORMAL) ELECTROLYTES (05/20/2008 2:50 EST) Sodium 127(L) 136 - 145 mEq/L [facility] Potassium 4.6 3.5 - 5.0 mEq/L [facility] Chloride 92(L) 96 - 110 mEq/L [facility] CO2 26 24 - 32 mEq/L [facility] 05/20/2008 2:50 EST 05/20/2008 2:51 EST Jose Alejandro Castro MD CHEMISTRY & BLOOD GAS ORDERABLE S Final Result Performing Organization Address [facility]/ZIP Co de Phone Number [facility] [address] [place] [address] * CREATININE (05/20/2008 0:00 EST) Creatinine 0.70 0.6 - 1.2 mg/dl [facility] GFR, Calculated Age <18 ml/min/1.7 3m2 [facility] 05/20/2008 05/20/2008 0:1 4 EST Jose Alejandro Castro MD CHEMISTRY & BLOOD GAS ORDERABLE S Final Result Performing Organization Address [facility] Co de Phone Number [facility] [address] [place] [address] * BUN (05/20/2008 0:00 EST) BUN 15 8 - 21 mg/dl [facility] 05/20/2008 05/20/2008 0:1 4 EST Jose Alejandro Castro MD CHEMISTRY & BLOOD GAS ORDERABLE S Final Result Performing Organization Address [facility] Co de Phone Number [facility] [address] [place] [address] * (ABNORMAL) ELECTROLYTES (05/20/2008 0:00 EST) Sodium 127(L) 136 - 145 mEq/L [facility] Potassium 4.7 3.5 - 5.0 mEq/L [facility] Chloride 92(L) 96 - 110 mEq/L [facility] CO2 26 24 - 32 mEq/L [facility] 05/20/2008 05/20/2008 0:1 4 EST Jose Alejandro Castro MD CHEMISTRY & BLOOD GAS ORDERABLE S Final Result Performing Organization Address [facility] Co de Phone Number [facility] [address] [place] [address] * (ABNORMAL) ELECTROLYTES (05/19/2008 18:10 EST) Sodium [...] [facility] de Phone Number [facility] [address] [place] [address] * (ABNORMAL) ELECTROLYTES (05/19/2008 13:40 EST) Sodium [...] [facility] de Phone Number [facility] [address] [place] [address] * SODIUM, URINE RANDOM (05/19/2008 12:00 EST) Sodium, Ur 123.0 mEq/L [facility] 05/19/2008 12:0 0 EST 05/19/2008 12:30 EST Jose Alejandro Castro MD URINALYSIS ORDERABLES Final Res ult Performing Organization Address [facility] de Phone Number [facility] [address] [place] [address] * PORTABLE CHEST 1 VIEW (05/19/2008 9:46 [...] 70 - 100 mg/dl [facility] Reference Test Clerk ID [id number] Test Performed by Nursing Services [facility] 05/19/2008 9:38 EST 05/20/2008 23:05 EST Jose Alejandro Castro MD CHEMISTRY & BLOOD GAS ORDERABLE S Final Result Performing Organization Address [facility] de Phone Number [facility] [address] [place] [address] * (ABNORMAL) ELECTROLYTES (05/19/2008 9:35 EST) Sodium [...] [facility] de Phone Number [facility] [address] [place] [address] * (ABNORMAL) ELECTROLYTES (05/19/2008 6:00 EST) Sodium 126(L) 136 - 145 mEq/L [facility] Potassium 4.2 3.5 - 5.0 mEq/L [facility] Chloride 90(L) 96 - 110 mEq/L [facility] CO2 26 24 - 32 mEq/L [facility] 05/19/2008 6:00 EST 05/19/2008 6:04 EST Jose Alejandro Castro MD CHEMISTRY & BLOOD GAS ORDERABLE S Final Result Performing Organization Address [facility] de Phone Number [facility] [address] [place] [address] * GLUCOSE, SERUM (05/19/2008 2:58 EST) Glucose, Serum 72 70 - 100 mg/dl [facility] 05/19/2008 2:58 EST 05/19/2008 2:59 EST Jose Alejandro Castro MD CHEMISTRY & BLOOD GAS ORDERABLE S Final Result Performing Organization Address [facility]/ZIP Co de Phone Number [facility] [address] [place] [address] * CREATININE (05/19/2008 2:58 EST) Creatinine 0.60 0.6 - 1.2 mg/dl [facility] GFR, Calculated Age <18 ml/min/1.7 3m2 [facility] 05/19/2008 2:58 EST 05/19/2008 2:59 EST Jose Alejandro Castro MD CHEMISTRY & BLOOD GAS ORDERABLE S Final Result Performing Organization Address [facility] de Phone Number [facility] [address] [place] [address] * BUN (05/19/2008 2:58 EST) BUN 9 8 - 21 mg/dl [facility] 05/19/2008 2:58 EST 05/19/2008 2:59 EST Jose Alejandro Castro MD CHEMISTRY & BLOOD GAS ORDERABLE S Final Result Performing Organization Address [facility] de Phone Number [facility] [address] [place] [address] * (ABNORMAL) ELECTROLYTES (05/19/2008 2:58 EST) Sodium 127(L) 136 - 145 mEq/L [facility] Potassium 4.1 3.5 - 5.0 mEq/L [facility] Chloride 91(L) 96 - 110 mEq/L [facility] CO2 27 24 - 32 mEq/L [facility] 05/19/2008 2:58 EST 05/19/2008 2:59 EST Jose Alejandro Castro MD CHEMISTRY & BLOOD GAS ORDERABLE S Final Result Performing Organization Address [facility] Co de Phone Number [facility] [address] [place] [address] * OSMOLALITY, URINE (05/18/2008 21:20 EST) Osmolality, Ur 639 MOS/KG [facility] 05/18/2008 21:2 0 EST 05/18/2008 21:23 EST us Jose Alejandro Castro MD URINALYSIS ORDERABLES Final Res ult Performing Organization Address [facility] de Phone Number [facility] [address] [place] [address] * SODIUM, URINE RANDOM (05/18/2008 21:20 EST) Sodium, Ur 289.0 mEq/L [facility] 05/18/2008 21:2 0 EST 05/18/2008 21:23 EST us Jose Alejandro Castro MD URINALYSIS ORDERABLES Final Res ult Performing Organization Address [facility] Phone Number [facility] [address] [place] [id number] * POTASSIUM, URINE RANDOM (05/18/2008 21:20 EST) Potassium, Urine 34.4 mEq/L [facility] 05/18/2008 21:2 0 EST 05/18/2008 21:23 EST us Jose Alejandro Castro MD URINALYSIS ORDERABLES Final Res ult Performing Organization Address [facility] de Phone Number [facility] [address] [place] [address] * CREATININE, URINE RANDOM (05/18/2008 21:20 EST) Creatinine, Urn [place] 25.1 mg/dl [facility] 05/18/2008 21:2 0 EST 05/18/2008 21:23 EST us Jose Alejandro Castro MD URINALYSIS ORDERABLES Final Res ult Performing Organization Address [facility] de Phone Number [facility] [address] [place] [address] * CALCIUM, IONIZED (05/18/2008 21:17 EST) Calcium, Ionized 1.17 1.12 - 1.32 mmol/L [facility] [place] [id number] Test performed by Chemistry [facility] 05/18/2008 21:1 7 EST 05/18/2008 21:20 EST Jose Alejandro Castro MD CHEMISTRY & BLOOD GAS ORDERABLE S Final Result Performing Organization Address [facility] Co de Phone Number [facility] [address] [place] [address] * GLUCOSE, SERUM (05/18/2008 21:00 EST) Glucose, Serum 77 70 - 100 mg/dl [facility] 05/18/2008 21:0 0 EST 05/18/2008 21:07 EST Jose Alejandro Castro MD CHEMISTRY & BLOOD GAS ORDERABLE S Final Result Performing Organization Address [facility] de Phone Number [facility] [address] [place] [address] * PHOSPHORUS (05/18/2008 21:00 EST) Phosphorus 3.4 2.7 - 4.7 mg/dl [facility] 05/18/2008 21:0 0 EST 05/18/2008 21:07 EST Jose Alejandro Castro MD CHEMISTRY & BLOOD GAS ORDERABLE S Final Result Performing Organization Address [facility] Co de Phone Number [facility] [address] [place] [address] * MAGNESIUM (05/18/2008 21:00 EST) Magnesium 1.8 1.7 - 2.8 mg/dl [facility] 05/18/2008 21:0 0 EST 05/18/2008 21:07 EST Jose Alejandro Castro MD CHEMISTRY & BLOOD GAS ORDERABLE S Final Result Performing Organization Address [facility]/ZIP Co de Phone Number [facility] [address] [place] [address] * CREATININE (05/18/2008 21:00 EST) Creatinine 0.60 0.6 - 1.2 mg/dl [facility] GFR, Calculated Age <18 ml/min/1.7 3m2 [facility] 05/18/2008 21:0 0 EST 05/18/2008 21:07 EST Jose Alejandro Castro MD CHEMISTRY & BLOOD GAS ORDERABLE S Final Result Performing Organization Address [facility] de Phone Number [facility] [address] [place] [address] * BUN (05/18/2008 21:00 EST) BUN 8 8 - 21 mg/dl [facility] 05/18/2008 21:0 0 EST 05/18/2008 21:07 EST Jose Alejandro Castro MD CHEMISTRY & BLOOD GAS ORDERABLE S Final Result Performing Organization Address [facility] de Phone Number [facility] [address] [place] [address] * (ABNORMAL) ELECTROLYTES (05/18/2008 21:00 EST) Sodium [...] ORDERABLE S Final Result Performing Organization Address [facility]/ZIP Co de Phone Number [facility] [address] [place] [address] * CALCIUM IONIZED (05/18/2008 21:00 EST) Ionized Calcium Note Sample sent to Lab. [facility] 05/18/2008 21:0 0 EST 05/18/2008 21:07 EST Jose Alejandro Castro MD CHEMISTRY & BLOOD GAS ORDERABLE S Final Result Performing Organization Address [facility] de Phone Number [facility] [address] [place] [address] * GLUCOSE, GLUCOMETER (05/18/2008 15:50 EST) Glucose, Fingerstick 90 70 - 100 mg/dl [facility] Reference Test Clerk ID [id number] Test Performed by Nursing Services [facility] 05/18/2008 15:5 0 EST 05/18/2008 23:25 EST us Jose Alejandro Castro MD CHEMISTRY & BLOOD GAS ORDERABLE S Final Result Performing Organization Address [facility] Phone Number [facility] [address] [place] [address] * (ABNORMAL) ELECTROLYTES (05/18/2008 15:48 EST) Sodium [...] ORDERABLE S Final Result Performing Organization Address [facility] de Phone Number [facility] [address] [place] [address] * GLUCOSE, GLUCOMETER (05/18/2008 9:24 EST) Glucose, Fingerstick 88 70 - 100 mg/dl [facility] Reference Test Clerk ID [id number] Test Performed by Nursing Services [facility] 05/18/2008 9:24 EST 05/18/2008 23:25 EST Jose Alejandro Castro MD CHEMISTRY & BLOOD GAS ORDERABLE S Final Result Performing Organization Address [facility] de Phone Number [facility] [address] [place] [address] * ELECTROLYTES (05/18/2008 9:20 EST) Sodium 140 [...] ORDERABLE S Final Result Performing Organization Address [facility] Phone Number [facility] [address] [place] [address] * GLUCOSE, SERUM (05/18/2008 3:00 EST) Glucose, Serum 97 70 - 100 mg/dl [facility] 05/18/2008 3:00 EST 05/18/2008 3:15 EST Jose Alejandro Castro MD CHEMISTRY & BLOOD GAS ORDERABLE S Final Result Performing Organization Address [facility] Co de Phone Number [facility] [address] [place] [address] * CREATININE (05/18/2008 3:00 EST) Creatinine 0.60 0.6 - 1.2 mg/dl [facility] GFR, Calculated Age <18 ml/min/1.7 3m2 [facility] 05/18/2008 3:00 EST 05/18/2008 3:15 EST us Jose Alejandro Castro MD CHEMISTRY & BLOOD GAS ORDERABLE S Final Result Performing Organization Address [facility] Phone Number [facility] [address] [place] [address] * BUN (05/18/2008 3:00 EST) BUN 9 8 - 21 mg/dl [facility] 05/18/2008 3:00 EST 05/18/2008 3:15 EST us Jose Alejandro Castro MD CHEMISTRY & BLOOD GAS ORDERABLE S Final Result Performing Organization Address [facility] Phone Number [facility] [address] [place] [address] * ELECTROLYTES (05/18/2008 3:00 EST) Sodium 142 136 - 145 mEq/L [facility] Potassium 3.5 3.5 - 5.0 mEq/L [facility] Chloride 105 96 - 110 mEq/L [facility] CO2 26 24 - 32 mEq/L [facility] 05/18/2008 3:00 EST 05/18/2008 3:15 EST us Jose Alejandro Castro MD CHEMISTRY & BLOOD GAS ORDERABLE S Final Result Performing Organization Address [facility] de Phone Number [facility] [address] [place] [address] * GLUCOSE, SERUM (05/17/2008 21:10 EST) Glucose, Serum 82 70 - 100 mg/dl [facility] 05/17/2008 21:1 0 EST 05/17/2008 21:30 EST us Jose Alejandro Castro MD CHEMISTRY & BLOOD GAS ORDERABLE S Final Result Performing Organization Address [facility]/ZIP Co de Phone Number [facility] [address] [place] [address] * ELECTROLYTES (05/17/2008 21:10 EST) Sodium 142 136 - 145 mEq/L [facility] Potassium 4.1 3.5 - 5.0 mEq/L [facility] Chloride 105 96 - 110 mEq/L [facility] CO2 27 24 - 32 mEq/L [facility] 05/17/2008 21:1 0 EST 05/17/2008 21:30 EST Jose Alejandro Castro MD CHEMISTRY & BLOOD GAS ORDERABLE S Final Result Performing Organization Address [facility] Co de Phone Number [facility] [address] [place] [address] * GLUCOSE, SERUM (05/17/2008 15:00 EST) Glucose, Serum 86 70 - 100 mg/dl [facility] 05/17/2008 15:0 0 EST 05/17/2008 15:16 EST Jose Alejandro Castro MD CHEMISTRY & BLOOD GAS ORDERABLE S Final Result Performing Organization Address [facility] de Phone Number [facility] [address] [place] [address] * ELECTROLYTES (05/17/2008 15:00 EST) Sodium 137 [...] ORDERABLE S Final Result Performing Organization Address [facility] Co de Phone Number [facility] [address] [place] [address] * (ABNORMAL) T4 FREE (05/17/2008 9:00 EST) Free T4 0.7(L) 0.8 - 1.5 ng/dL [facility] 05/17/2008 9:00 EST 05/17/2008 9:29 EST Jose Alejandro Castro MD CHEMISTRY & BLOOD GAS ORDERABLE S Final Result Performing Organization Address [facility] Phone Number [facility] [address] [place] [address] * TESTS ADDED BY PHONE (05/17/2008 9:00 EST) Pathologist [facility] Tests to be added FT4 [facility] Who Called [facility] Location Code M3 [facility] 05/17/2008 9:00 EST 05/17/2008 9:29 EST Jose Alejandro Castro MD CHEMISTRY & BLOOD GAS ORDERABLE S Final Result Performing Organization Address [facility] Phone Number [facility] [address] [place] [address] * GLUCOSE, SERUM (05/17/2008 9:00 EST) [facility] Glucose, Serum 87 70 - 100 mg/dl [facility] Comment:Heparinized plasma. 05/17/2008 9:00 EST 05/17/2008 9:29 EST Jose Alejandro Castro MD CHEMISTRY & BLOOD GAS ORDERABLE S Final Result Performing Organization Address [facility] Phone Number [facility] [address] [place] [address] * (ABNORMAL) ELECTROLYTES (05/17/2008 9:00 EST) [facility] Sodium 135(L) 136 - 145 mEq/L [...] de Phone Number [facility] [address] [place] [address] * HOLD GREEN TOP (05/17/2008 5:48 EST) Hold Green Top Hold for further testing. Specimen will be held for 5 days. [facility] 05/17/2008 5:48 EST 05/17/2008 5:48 EST Jose Alejandro Castro MD LAB INFO SERVICE AND SUPPORT & PHONE RESULT Final Result Performing Organization Address [facility] de Phone Number [facility] [address] [place] [address] * HOLD PURPLE TOP (05/17/2008 5:46 EST) Hold Purple Top EDTA for hematology will be discarded after 48 hours, differential not available after 12 hours. [facility] 05/17/2008 5:46 EST 05/17/2008 5:46 EST Jose Alejandro Castro MD LAB INFO SERVICE AND SUPPORT & PHONE RESULT Final Result Performing Organization Address [facility] de Phone Number [facility] [address] [place] [address] * (ABNORMAL) HEMAGRAM (05/17/2008 5:46 EST) WBC [...] ORDERABLES Fin al Result Performing Organization Address [facility] Co de Phone Number [facility] [address] [place] [address] * GLUCOSE, SERUM (05/17/2008 5:46 EST) Glucose, Serum 76 70 - 100 mg/dl [facility] 05/17/2008 5:46 EST 05/17/2008 5:46 EST Jose Alejanrdo Castro MD CHEMISTRY & BLOOD GAS ORDERABLE S Final Result Performing Organization Address [facility] de Phone Number [facility] [address] [place] [address] * CREATININE (05/17/2008 5:46 EST) Creatinine 0.60 0.6 - 1.2 mg/dl [facility] GFR, Calculated Age <18 ml/min/1.7 3m2 [facility] 05/17/2008 5:46 EST 05/17/2008 5:46 EST Jose Alejandro Castro MD CHEMISTRY & BLOOD GAS ORDERABLE S Final Result Performing Organization Address [facility] de Phone Number [facility] [address] [place] [address] * (ABNORMAL) BUN (05/17/2008 5:46 EST) BUN 7(L) 8 - 21 mg/dl [facility] 05/17/2008 5:46 EST 05/17/2008 5:46 EST us Jose Alejandro Castro MD CHEMISTRY & BLOOD GAS ORDERABLE S Final Result Performing Organization Address [facility] de Phone Number [facility] [address] [place] [address] * ELECTROLYTES (05/17/2008 5:46 EST) Sodium 137 136 - 145 mEq/L [facility] Potassium 4.0 3.5 - 5.0 mEq/L [facility] Chloride 101 96 - 110 mEq/L [facility] CO2 26 24 - 32 mEq/L [facility] 05/17/2008 5:46 EST 05/17/2008 5:46 EST us Jose Alejandro Castro MD CHEMISTRY & BLOOD GAS ORDERABLE S Final Result Performing Organization Address [facility] Phone Number [facility] [address] [place] [address] * GLUCOSE, SERUM (05/17/2008 2:09 EST) Glucose, Serum 79 70 - 100 mg/dl [facility] 05/17/2008 2:09 EST 05/17/2008 2:09 EST us Jose Alejandro Castro MD CHEMISTRY & BLOOD GAS ORDERABLE S Final Result Performing Organization Address [facility] de Phone Number [facility] [address] [place] [address] * ELECTROLYTES (05/17/2008 2:09 EST) Sodium 140 136 - 145 mEq/L [facility] Potassium 4.5 3.5 - 5.0 mEq/L [facility] Chloride 105 96 - 110 mEq/L [facility] CO2 26 24 - 32 mEq/L [facility] 05/17/2008 2:09 EST 05/17/2008 2:09 EST us Jose Alejandro Castro MD CHEMISTRY & BLOOD GAS ORDERABLE S Final Result Performing Organization Address [facility] Co de Phone Number [facility] [address] [place] [address] * GLUCOSE, SERUM (05/16/2008 22:09 EST) Glucose, Serum 92 70 - 100 mg/dl [facility] 05/16/2008 22:0 9 EST 05/16/2008 22:09 EST Jose Alejandro Castro MD CHEMISTRY & BLOOD GAS ORDERABLE S Final Result Performing Organization Address [facility] de Phone Number [facility] [address] [place] [address] * ELECTROLYTES (05/16/2008 22:09 EST) Sodium 144 136 - 145 mEq/L [facility] Potassium 3.8 3.5 - 5.0 mEq/L [facility] Chloride 108 96 - 110 mEq/L [facility] CO2 26 24 - 32 mEq/L [facility] 05/16/2008 22:0 9 EST 05/16/2008 22:09 EST Jose Alejandro Castro MD CHEMISTRY & BLOOD GAS ORDERABLE S Final Result Performing Organization Address [facility] Phone Number [facility] [address] [place] [address] * (ABNORMAL) GLUCOSE, SERUM (05/16/2008 18:53 EST) Glucose, Serum 106(H) 70 - 100 mg/dl [facility] 05/16/2008 18:5 3 EST 05/16/2008 18:54 EST Jose Alejandro Castro MD CHEMISTRY & BLOOD GAS ORDERABLE S Final Result Performing Organization Address [facility] de Phone Number [facility] [address] [place] [address] * ELECTROLYTES (05/16/2008 18:53 EST) Sodium 138 136 - 145 mEq/L [facility] Potassium 3.7 3.5 - 5.0 mEq/L [facility] Chloride 102 96 - 110 mEq/L [facility] CO2 26 24 - 32 mEq/L [facility] 05/16/2008 18:5 3 EST 05/16/2008 18:54 EST Jose Alejandro Castro MD CHEMISTRY & BLOOD GAS ORDERABLE S Final Result Performing Organization Address [facility] de Phone Number [facility] [address] [place] [address] * (ABNORMAL) GLUCOSE, SERUM (05/16/2008 16:00 EST) Glucose, Serum 63(L) 70 - 100 mg/dl [facility] 05/16/2008 16:0 0 EST 05/16/2008 16:27 EST Jose Alejandro Castro MD CHEMISTRY & BLOOD GAS ORDERABLE S Final Result Performing Organization Address [facility] Phone Number [facility] [address] [place] [address] * (ABNORMAL) ELECTROLYTES (05/16/2008 16:00 EST) Sodium [...] [facility] de Phone Number [facility] [address] [place] [address] * (ABNORMAL) GLUCOSE, SERUM (05/16/2008 12:59 EST) Glucose, Serum 101(H) 70 - 100 mg/dl [facility] 05/16/2008 12:5 9 EST 05/16/2008 12:59 EST Jose Alejandro Castro MD CHEMISTRY & BLOOD GAS ORDERABLE S Final Result Performing Organization Address [facility] Co de Phone Number [facility] [address] [place] [address] * (ABNORMAL) ELECTROLYTES (05/16/2008 12:59 EST) Sodium [...] ORDERABLE S Final Result Performing Organization Address [facility] Co de Phone Number [facility] [address] [place] [address] * GLUCOSE, SERUM (05/16/2008 9:58 EST) Glucose, Serum 82 70 - 100 mg/dl [facility] 05/16/2008 9:58 EST 05/16/2008 9:58 EST Jose Alejandro Castro MD CHEMISTRY & BLOOD GAS ORDERABLE S Final Result Performing Organization Address [facility] Co de Phone Number [facility] [address] [place] [address] * (ABNORMAL) ELECTROLYTES (05/16/2008 9:58 EST) Sodium 138 136 - 145 mEq/L [facility] Potassium 4.4 3.5 - 5.0 mEq/L [facility] Chloride 106 96 - 110 mEq/L [facility] CO2 22(L) 24 - 32 mEq/L [facility] 05/16/2008 9:58 EST 05/16/2008 9:58 EST Jose Alejandro Castro MD CHEMISTRY & BLOOD GAS ORDERABLE S Final Result Performing Organization Address City/[facility] Co de Phone Number [facility] [address] [place] [address] * GLUCOSE, SERUM (05/16/2008 6:50 EST) Glucose, Serum 77 70 - 100 mg/dl [facility] 05/16/2008 6:50 EST 05/16/2008 7:05 EST Jose Alejandro Castro MD CHEMISTRY & BLOOD GAS ORDERABLE S Final Result Performing Organization Address [facility] de Phone Number [facility] [address] [place] [address] * ELECTROLYTES (05/16/2008 6:50 EST) Sodium 138 136 - 145 mEq/L [facility] Potassium 4.2 3.5 - 5.0 mEq/L [facility] Chloride 105 96 - 110 mEq/L [facility] CO2 26 24 - 32 mEq/L [facility] 05/16/2008 6:50 EST 05/16/2008 7:05 EST Jose Alejandro Castro MD CHEMISTRY & BLOOD GAS ORDERABLE S Final Result Performing Organization Address [facility] de Phone Number [facility] [address] [place] [address] * TESTS ADDED BY PHONE (05/16/2008 4:15 EST) Tests to be added HIVS,HBAG,HC AB CHARGE TO [id number] [facility] Who Called [facility] Location Code [facility] 05/16/2008 4:15 EST 05/16/2008 4:23 EST Jose Alejandro Castro MD CHEMISTRY & BLOOD GAS ORDERABLE S Final Result Performing Organization Address City/[facility]/ZIP Co de Phone Number [facility] [address] [place] [address] * TESTS ADDED BY PHONE (05/16/2008 4:15 EST) Tests to be added CARLOS HAY TO [facility] [id number] [facility] Who Called [email or web address] Location Code [facility] 05/16/2008 4:15 EST 05/16/2008 4:23 EST Jose Alejandro Castro MD CHEMISTRY & BLOOD GAS ORDERABLE S Final Result [facility] [address] [place] [address] * (ABNORMAL) TOTAL PROTEIN (05/16/2008 4:15 EST) Total Protein 5.5(L) 6.3 - 8.6 g/dl [facility] 05/16/2008 4:15 EST 05/16/2008 4:23 EST Jose Alejandro Castro MD CHEMISTRY & BLOOD GAS ORDERABLE S Final Result Performing Organization Address City/[facility]/ZIP Co de Phone Number [facility] [address] [place] [address] * GLUCOSE, SERUM (05/16/2008 4:15 EST) Glucose, Serum 100 70 - 100 mg/dl [facility] 05/16/2008 4:15 EST 05/16/2008 4:23 EST Jose Alejandro Castro MD CHEMISTRY & BLOOD GAS ORDERABLE S Final Result [facility] [address] [place] [address] * CREATININE (05/16/2008 4:15 EST) Creatinine 0.60 0.6 - 1.2 mg/dl [facility] GFR, Calculated Age <18 ml/min/1.7 3m2 [facility] 05/16/2008 4:15 EST 05/16/2008 4:23 EST us Jose Alejandro Castro MD CHEMISTRY & BLOOD GAS ORDERABLE S Final Result Performing Organization Address [facility] Co de Phone Number [facility] [address] [place] [address] * BUN (05/16/2008 4:15 EST) BUN 9 8 - 21 mg/dl [facility] 05/16/2008 4:15 EST 05/16/2008 4:23 EST us Jose Alejandro Castro MD CHEMISTRY & BLOOD GAS ORDERABLE S Final Result Performing Organization Address [facility] de Phone Number [facility] [address] [place] [address] * TOTAL & DIRECT BILIRUBIN (05/16/2008 4:15 EST) Conjugated Bilirubin 0.0 0.0 - 0.3 mg/dl [facility] Unconjugated Bilirubin 0.7 0.1 - 1.1 mg/dl [facility] Bilirubin, Total 0.7 0.0 - 1.4 mg/dl [facility] 05/16/2008 4:15 EST 05/16/2008 4:23 EST us Jose Alejandro Castro MD CHEMISTRY & BLOOD GAS ORDERABLE S Final Result Performing Organization Address [facility] Co de Phone Number [facility] [address] [place] [address] * AST (05/16/2008 4:15 EST) AST 25 15 - 46 U/L [facility] 05/16/2008 4:15 EST 05/16/2008 4:23 EST us Jose Alejandro Castro MD CHEMISTRY & BLOOD GAS ORDERABLE S Final Result Performing Organization Address [facility]/ZIP Co de Phone Number [facility] [address] [place] [address] * ALT (05/16/2008 4:15 EST) ALT 41 0 - 45 U/L [facility] 05/16/2008 4:15 EST 05/16/2008 4:23 EST Jose Alejandro Castro MD CHEMISTRY & BLOOD GAS ORDERABLE S Final Result Performing Organization Address [facility] de Phone Number [facility] [address] [place] [address] * ALKALINE PHOSPHATASE (05/16/2008 4:15 EST) Alkaline Phosphatase 96 65 - 260 U/L [facility] 05/16/2008 4:15 EST 05/16/2008 4:23 EST Jose Alejandro Castro MD CHEMISTRY & BLOOD GAS ORDERABLE S Final Result Performing Organization Address [facility] Phone Number [facility] [address] [place] [address] * (ABNORMAL) ALBUMIN (05/16/2008 4:15 EST) Albumin 2.7(L) 3.0 - 5.5 g/dl [facility] 05/16/2008 4:15 EST 05/16/2008 4:23 EST Jose Alejandro Castro MD CHEMISTRY & BLOOD GAS ORDERABLE S Final Result Performing Organization Address [facility] Phone Number [facility] [address] [place] [address] * ELECTROLYTES (05/16/2008 4:15 EST) Sodium 138 136 - 145 mEq/L [facility] Potassium 4.3 3.5 - 5.0 mEq/L [facility] Chloride 106 96 - 110 mEq/L [facility] CO2 25 24 - 32 mEq/L [facility] 05/16/2008 4:15 EST 05/16/2008 4:23 EST Jose Alejandro Castro MD CHEMISTRY & BLOOD GAS ORDERABLE S Final Result [facility] [address] [place] [address] * GLUCOSE, SERUM (05/16/2008 1:05 EST) Glucose, Serum 85 70 - 100 mg/dl [facility] 05/16/2008 1:05 EST 05/16/2008 1:32 EST Jose Alejandro Castro MD CHEMISTRY & BLOOD GAS ORDERABLE S Final Result Performing Organization Address [facility] Co de Phone Number [facility] [address] [place] [address] * ELECTROLYTES (05/16/2008 1:05 EST) Sodium 140 136 - 145 mEq/L [facility] Potassium 4.0 3.5 - 5.0 mEq/L [facility] Chloride 107 96 - 110 mEq/L [facility] CO2 26 24 - 32 mEq/L [facility] 05/16/2008 1:05 EST 05/16/2008 1:32 EST Jose Alejandro Castro MD CHEMISTRY & BLOOD GAS ORDERABLE S Final Result Performing Organization Address [facility] Co de Phone Number [facility] [address] [place] [address] * GLUCOSE, SERUM (05/15/2008 22:35 EST) Glucose, Serum 70 70 - 100 mg/dl [facility] 05/15/2008 22:3 5 EST 05/15/2008 22:43 EST Jose Alejandro Castro MD CHEMISTRY & BLOOD GAS ORDERABLE S Final Result Performing Organization Address [facility]/ZIP Co de Phone Number [facility] [address] [place] [address] * ELECTROLYTES (05/15/2008 22:35 EST) Sodium 140 [...] [facility] de Phone Number [facility] [address] [place] [address] * GLUCOSE, SERUM (05/15/2008 19:35 EST) Glucose, Serum 87 70 - 100 mg/dl [facility] 05/15/2008 19:3 5 EST 05/15/2008 19:38 EST Jose Alejandro Castro MD CHEMISTRY & BLOOD GAS ORDERABLE S Final Result Performing Organization Address [facility] de Phone Number [facility] [address] [place] [address] * ELECTROLYTES (05/15/2008 19:35 EST) Sodium 137 136 - 145 mEq/L [facility] Potassium 4.2 3.5 - 5.0 mEq/L [facility] Chloride 101 96 - 110 mEq/L [facility] CO2 28 24 - 32 mEq/L [facility] 05/15/2008 19:3 5 EST 05/15/2008 19:38 EST us Jose Aleajndro Castro MD CHEMISTRY & BLOOD GAS ORDERABLE S Final Result Performing Organization Address [facility] de Phone Number [facility] [address] [place] [address] * XRAY FEEDING TUBE PLACEMENT (05/15/2008 18:28 [...] 70 - 100 mg/dl [facility] Reference Test Clerk ID [id number] Test Performed by Nursing Services [facility] 05/15/2008 17:2 9 EST 05/15/2008 23:00 EST Jose Alejandro Castro MD CHEMISTRY & BLOOD GAS ORDERABLE S Final Result [facility] [address] [place] [address] * (ABNORMAL) GLUCOSE, SERUM (05/15/2008 16:32 EST) Glucose, Serum 68(L) 70 - 100 mg/dl [facility] 05/15/2008 16:3 2 EST 05/15/2008 16:32 EST Jose Alejandro Castro MD CHEMISTRY & BLOOD GAS ORDERABLE S Final Result Performing Organization Address [facility] Phone Number [facility] [address] [place] [address] * (ABNORMAL) ELECTROLYTES (05/15/2008 16:32 EST) Sodium [...] ORDERABLE S Final Result Performing Organization Address [facility] Phone Number [facility] [address] [place] [address] * (ABNORMAL) ELECTROLYTES (05/15/2008 13:28 EST) [facility] Sodium 128(L) 136 - 145 mEq/L [...] ORDERABLE S Final Result Performing Organization Address [facility] Phone Number [facility] [address] [place] [address] * GLUCOSE, GLUCOMETER (05/15/2008 13:26 EST) Glucose, Fingerstick 70 70 - 100 mg/dl [facility] Reference Test Clerk ID [id number] Test Performed by Nursing Services [facility] 05/15/2008 13:2 6 EST 05/15/2008 23:00 EST Jose Alejandro Castro MD CHEMISTRY & BLOOD GAS ORDERABLE S Final Result Performing Organization Address [facility] Phone Number [facility] [address] [place] [address] * (ABNORMAL) ELECTROLYTES (05/15/2008 10:05 EST) Sodium [...] ORDERABLE S Final Result Performing Organization Address [facility] Phone Number [facility] [address] [place] [address] * GLUCOSE, GLUCOMETER (05/15/2008 10:00 EST) Glucose, Fingerstick 99 70 - 100 mg/dl [facility] Reference Test Clerk ID [id number] Test Performed by Nursing Services [facility] 05/15/2008 10:0 0 EST 05/15/2008 23:00 EST us Jose Alejandro Castro MD CHEMISTRY & BLOOD GAS ORDERABLE S Final Result Performing Organization Address [facility] Phone Number [facility] [address] [place] [address] * (ABNORMAL) GLUCOSE, GLUCOMETER (05/15/2008 8:35 EST) Glucose, Fingerstick 113(H) 70 - 100 mg/dl [facility] Reference Test Clerk ID [id number] Test Performed by Nursing Services [facility] 05/15/2008 8:35 EST 05/15/2008 23:00 EST us Jose Alejandro Castro MD CHEMISTRY & BLOOD GAS ORDERABLE S Final Result Performing Organization Address [facility] Co de Phone Number [facility] [address] [place] [address] * OSMOLALITY, URINE (05/15/2008 8:09 EST) Osmolality, Ur 298 MOS/KG [facility] 05/15/2008 8:09 EST 05/15/2008 8:09 EST Jose Alejandro Castro MD URINALYSIS ORDERABLES Final Res ult Performing Organization Address [facility] de Phone Number [facility] [address] [place] [address] * SODIUM, URINE RANDOM (05/15/2008 8:09 EST) Sodium, Ur 133.0 mEq/L [facility] 05/15/2008 8:09 EST 05/15/2008 8:09 EST Jose Alejandro Castro MD URINALYSIS ORDERABLES Final Res ult Performing Organization Address [facility] de Phone Number [facility] [address] [place] [address] * POTASSIUM, URINE RANDOM (05/15/2008 8:09 EST) Potassium, Urine 6.4 mEq/L [facility] 05/15/2008 8:09 EST 05/15/2008 8:09 EST us Jose Alejandro Castro MD URINALYSIS ORDERABLES Final Res ult Performing Organization Address [facility] de Phone Number [facility] [address] [place] [address] * CREATININE, URINE RANDOM (05/15/2008 8:09 EST) Creatinine, Urn [place] 12.8 mg/dl [facility] 05/15/2008 8:09 EST 05/15/2008 8:09 EST us Jose Alejandro Castro MD URINALYSIS ORDERABLES Final Res ult Performing Organization Address [facility]/State/ZIP Co de Phone Number [facility] [address] [place] [address] * (ABNORMAL) ALBUMIN (05/15/2008 6:40 EST) Albumin 2.7(L) 3.0 - 5.5 g/dl [facility] 05/15/2008 6:40 EST 05/15/2008 7:00 EST Jose Alejandro Castro MD CHEMISTRY & BLOOD GAS ORDERABLE S Final Result Performing Organization Address [facility] Co de Phone Number [facility] [address] [place] [address] * (ABNORMAL) GLUCOSE, SERUM (05/15/2008 6:40 EST) Glucose, Serum 65(L) 70 - 100 mg/dl [facility] 05/15/2008 6:40 EST 05/15/2008 7:00 EST Jose Alejandro Castro MD CHEMISTRY & BLOOD GAS ORDERABLE S Final Result Performing Organization Address [facility] de Phone Number [facility] [address] [place] [address] * (ABNORMAL) PHOSPHORUS (05/15/2008 6:40 EST) Phosphorus 2.4(L) 2.7 - 4.7 mg/dl [facility] 05/15/2008 6:40 EST 05/15/2008 7:00 EST Jose Alejandro Castro MD CHEMISTRY & BLOOD GAS ORDERABLE S Final Result Performing Organization Address [facility] Co de Phone Number [facility] [address] [place] [address] * (ABNORMAL) MAGNESIUM (05/15/2008 6:40 EST) Magnesium 1.5(L) 1.7 - 2.8 mg/dl [facility] 05/15/2008 6:40 EST 05/15/2008 7:00 EST Jose Alejandro Castro MD CHEMISTRY & BLOOD GAS ORDERABLE S Final Result Performing Organization Address [facility] de Phone Number [facility] [address] [place] [address] * (ABNORMAL) CALCIUM (05/15/2008 6:40 EST) Calcium 7.5(L) 8.5 - 10.5 mg/dl [facility] Calculated Calcium 9.2 8.5 - 10.5 mg/dl [facility] 05/15/2008 6:40 EST 05/15/2008 7:00 EST Jose Alejandro Castro MD CHEMISTRY & BLOOD GAS ORDERABLE S Final Result Performing Organization Address [facility] de Phone Number [facility] [address] [place] [address] * (ABNORMAL) ELECTROLYTES (05/15/2008 6:40 EST) Sodium [...] ORDERABLE S Final Result Performing Organization Address [facility] Co de Phone Number [facility] [address] [place] [address] * GLUCOSE, SERUM (05/15/2008 3:55 EST) Glucose, Serum 89 70 - 100 mg/dl [facility] 05/15/2008 3:55 EST 05/15/2008 4:03 EST Jose Alejandro Castro MD CHEMISTRY & BLOOD GAS ORDERABLE S Final Result Performing Organization Address [facility]/ZIP Co de Phone Number [facility] [address] [place] [address] * (ABNORMAL) CREATININE (05/15/2008 3:55 EST) Creatinine 0.50(L) 0.6 - 1.2 mg/dl [facility] GFR, Calculated Age <18 ml/min/1.7 3m2 [facility] 05/15/2008 3:55 EST 05/15/2008 4:03 EST Jose Alejandro Castro MD CHEMISTRY & BLOOD GAS ORDERABLE S Final Result Performing Organization Address [facility] Co de Phone Number [facility] [address] [place] [address] * (ABNORMAL) BUN (05/15/2008 3:55 EST) BUN 6(L) 8 - 21 mg/dl [facility] 05/15/2008 3:55 EST 05/15/2008 4:03 EST Jose Alejandro Castro MD CHEMISTRY & BLOOD GAS ORDERABLE S Final Result Performing Organization Address [facility] de Phone Number [facility] [address] [place] [address] * (ABNORMAL) ELECTROLYTES (05/15/2008 3:55 EST) Sodium 123(LL) 136 - 145 mEq/L [facility] Comment:Sample retested, res ult confirmed Potassium 3.2(L) 3.5 - 5.0 mEq/L [facility] Chloride 88(L) 96 - 110 mEq/L [facility] CO2 29 24 - 32 mEq/L [facility] 05/15/2008 3:55 EST 05/15/2008 4:03 EST Jose Alejandro Castro MD CHEMISTRY & BLOOD GAS ORDERABLE S Final Result Performing Organization Address [facility] Co de Phone Number [facility] [address] [place] [address] * OSMOLALITY, URINE (05/15/2008 2:10 EST) Pathologist [facility] Osmolality, Ur 372 MOS/KG [facility] 05/15/2008 2:10 EST 05/15/2008 2:15 EST Jose Alejandro Castro MD URINALYSIS ORDERABLES Final Res ult Performing Organization Address [facility] de Phone Number [facility] [address] [place] [address] * SODIUM, URINE RANDOM (05/15/2008 2:10 EST) Pathologist [facility] Sodium, Ur 167.0 mEq/L [facility] 05/15/2008 2:10 EST 05/15/2008 2:15 EST Jose Alejandro Castro MD URINALYSIS ORDERABLES Final Res ult Performing Organization Address [facility] de Phone Number [facility] [address] [place] [address] * GLUCOSE, SERUM (05/15/2008 0:45 EST) [facility] Glucose, Serum 97 70 - 100 mg/dl [facility] 05/15/2008 0:45 EST 05/15/2008 0:50 EST Jose Alejandro Castro MD CHEMISTRY & BLOOD GAS ORDERABLE S Final Result Performing Organization Address [facility] de Phone Number [facility] [address] [place] [address] * (ABNORMAL) PHOSPHORUS (05/15/2008 0:45 EST) Pathologist [facility] Phosphorus 2.5(L) 2.7 - 4.7 mg/dl [facility] 05/15/2008 0:45 EST 05/15/2008 0:50 EST Jose Alejandro Castro MD CHEMISTRY & BLOOD GAS ORDERABLE S Final Result Performing Organization Address [facility] de Phone Number [facility] [address] [place] [address] * (ABNORMAL) MAGNESIUM (05/15/2008 0:45 EST) Magnesium 1.5(L) 1.7 - 2.8 mg/dl [facility] 05/15/2008 0:45 EST 05/15/2008 0:50 EST Jose Alejandro Castro MD CHEMISTRY & BLOOD GAS ORDERABLE S Final Result Performing Organization Address [facility] de Phone Number [facility] [address] [place] [address] * (ABNORMAL) CALCIUM (05/15/2008 0:45 EST) Calcium 7.1(L) 8.5 - 10.5 mg/dl [facility] Calculated Calcium 8.9 8.5 - 10.5 mg/dl [facility] 05/15/2008 0:45 EST 05/15/2008 0:50 EST Jose Alejandro Castro MD CHEMISTRY & BLOOD GAS ORDERABLE S Final Result Performing Organization Address [facility] de Phone Number [facility] [address] [place] [address] * (ABNORMAL) ELECTROLYTES (05/15/2008 0:45 EST) Sodium [...] S Final Result [facility] [address] [place] [address] * GLUCOSE, SERUM (05/14/2008 22:10 EST) Glucose, Serum 88 70 - 100 mg/dl [facility] 05/14/2008 22:1 0 EST 05/14/2008 22:15 EST Jose Alejandro Castro MD CHEMISTRY & BLOOD GAS ORDERABLE S Final Result Performing Organization Address [facility] de Phone Number [facility] [address] [place] [address] * (ABNORMAL) ELECTROLYTES (05/14/2008 22:10 EST) Sodium [...] ORDERABLE S Final Result Performing Organization Address [facility] de Phone Number [facility] [address] [place] [address] * GLUCOSE, SERUM (05/14/2008 18:50 EST) Glucose, Serum 99 70 - 100 mg/dl [facility] 05/14/2008 18:5 0 EST 05/14/2008 18:59 EST Jose Alejandro Castro MD CHEMISTRY & BLOOD GAS ORDERABLE S Final Result Performing Organization Address [facility] Co de Phone Number [facility] [address] [place] [address] * (ABNORMAL) ELECTROLYTES (05/14/2008 18:50 EST) Sodium [...] ORDERABLE S Final Result Performing Organization Address [facility] Co de Phone Number [facility] [address] [place] [address] * (ABNORMAL) PHOSPHORUS (05/14/2008 16:26 EST) Phosphorus 1.7(L) 2.7 - 4.7 mg/dl [facility] 05/14/2008 16:2 6 EST 05/14/2008 16:26 EST Jose Alejandro Castro MD CHEMISTRY & BLOOD GAS ORDERABLE S Final Result Performing Organization Address [facility] de Phone Number [facility] [address] [place] [address] * (ABNORMAL) CALCIUM (05/14/2008 16:26 EST) Calcium 6.8(L) 8.5 - 10.5 mg/dl [facility] Calculated Calcium 8.6 8.5 - 10.5 mg/dl [facility] 05/14/2008 16:2 6 EST 05/14/2008 16:26 EST Jose Alejandro Castro MD CHEMISTRY & BLOOD GAS ORDERABLE S Final Result Performing Organization Address [facility] de Phone Number [facility] [address] [place] [address] * (ABNORMAL) GLUCOSE, SERUM (05/14/2008 16:26 EST) Glucose, Serum 107(H) 70 - 100 mg/dl [facility] 05/14/2008 16:2 6 EST 05/14/2008 16:26 EST Jose Alejandro Castro MD CHEMISTRY & BLOOD GAS ORDERABLE S Final Result Performing Organization Address [facility] Co de Phone Number [facility] [address] [place] [address] * (ABNORMAL) ELECTROLYTES (05/14/2008 16:26 EST) Sodium [...] S Final Result Performing Organization Address [facility] Co de Phone Number [facility] [address] [place] [address] * C. DIFFICILE TOXIN (05/14/2008 13:55 EST) Specimen Description Feces [facility] Result No C.difficil e toxin A or toxin B detected. [facility] Report Status Final 05/14/2008 [facility] 05/14/2008 13:5 5 EST 05/14/2008 16:05 EST Jose Alejandro Castro MD MICROBIOLOGY - GENERAL ORDERABL ES Final Result Performing Organization Address [facility] Co de Phone Number [facility] [address] [place] [address] * GLUCOSE, SERUM (05/14/2008 10:21 EST) Glucose, Serum 74 70 - 100 mg/dl [facility] Comment:Heparinized plasma. 05/14/2008 10:2 1 EST 05/14/2008 10:21 EST Jose Alejandro Castro MD CHEMISTRY & BLOOD GAS ORDERABLE S Final Result Performing Organization Address [facility] de Phone Number [facility] [address] [place] [address] * (ABNORMAL) ELECTROLYTES (05/14/2008 10:21 EST) Sodium [...] de Phone Number [facility] [address] [place] [address] * (ABNORMAL) CALCIUM, IONIZED (05/14/2008 5:38 EST) Calcium, Ionized 1.00(L) 1.12 - 1.32 mmol/L [facility] sh[place] [id number] Test performed by Chemistry [facility] 05/14/2008 5:38 EST 05/14/2008 5:49 EST Jose Alejandro Castro MD CHEMISTRY & BLOOD GAS ORDERABLE S Final Result Performing Organization Address [facility] de Phone Number [facility] [address] [place] [address] * CALCIUM IONIZED (05/14/2008 5:27 EST) Ionized Calcium Note Sample sent to Lab. [facility] 05/14/2008 5:27 EST 05/14/2008 5:27 EST Jose Alejandro Castro MD CHEMISTRY & BLOOD GAS ORDERABLE S Final Result Performing Organization Address [facility] Co de Phone Number [facility] [address] [place] [address] * (ABNORMAL) PHOSPHORUS (05/14/2008 4:07 EST) Phosphorus 2.0(L) 2.7 - 4.7 mg/dl [facility] 05/14/2008 4:07 EST 05/14/2008 4:07 EST Jose Alejandro Castro MD CHEMISTRY & BLOOD GAS ORDERABLE S Final Result Performing Organization Address [facility] de Phone Number [facility] [address] [place] [address] * (ABNORMAL) MAGNESIUM (05/14/2008 4:07 EST) Magnesium 1.5(L) 1.7 - 2.8 mg/dl [facility] 05/14/2008 4:07 EST 05/14/2008 4:07 EST Jose Alejandro Castro MD CHEMISTRY & BLOOD GAS ORDERABLE S Final Result Performing Organization Address [facility] de Phone Number [facility] [address] [place] [address] * (ABNORMAL) CALCIUM (05/14/2008 4:07 EST) Calcium 6.6(L) 8.5 - 10.5 mg/dl [facility] Calculated Calcium 8.7 8.5 - 10.5 mg/dl [facility] 05/14/2008 4:07 EST 05/14/2008 4:07 EST us Jose Alejandro Castro MD CHEMISTRY & BLOOD GAS ORDERABLE S Final Result Performing Organization Address [facility] Co de Phone Number [facility] [address] [place] [address] * (ABNORMAL) ELECTROLYTES (05/14/2008 4:07 EST) Sodium [...] ORDERABLE S Final Result Performing Organization Address [facility] Co de Phone Number [facility] [address] [place] [address] * (ABNORMAL) CREATININE (05/14/2008 4:07 EST) Creatinine 0.50(L) 0.6 - 1.2 mg/dl [facility] GFR, Calculated Age <18 ml/min/1.7 3m2 [facility] 05/14/2008 4:07 EST 05/14/2008 4:07 EST Jose Alejandro Castro MD CHEMISTRY & BLOOD GAS ORDERABLE S Final Result Performing Organization Address [facility] de Phone Number [facility] [address] [place] [address] * (ABNORMAL) BUN (05/14/2008 4:07 EST) BUN 7(L) 8 - 21 mg/dl [facility] 05/14/2008 4:07 EST 05/14/2008 4:07 EST Jose Alejandro Castro MD CHEMISTRY & BLOOD GAS ORDERABLE S Final Result Performing Organization Address [facility] de Phone Number [facility] [address] [place] [address] * (ABNORMAL) HEMAGRAM (05/14/2008 4:07 EST) WBC [...] Fin al Result [facility] [address] [place] [address] * GLUCOSE, GLUCOMETER (05/14/2008 4:04 EST) Glucose, Fingerstick 97 70 - 100 mg/dl [facility] Reference Test Clerk ID [id number] Test Performed by Nursing Services [facility] 05/14/2008 4:04 EST 05/14/2008 23:15 EST Result [facility] Jose Alejandro Castro MD CHEMISTRY & BLOOD GAS ORDERABLE S Final Result Performing Organization Address [facility] Co de Phone Number [facility] [address] [place] [address] * (ABNORMAL) ELECTROLYTES (05/13/2008 22:11 EST) Sodium [...] ORDERABLE S Final Result Performing Organization Address [facility]/ZIP Co de Phone Number [facility] [address] [place] [address] * GLUCOSE, GLUCOMETER (05/13/2008 22:07 EST) Glucose, Fingerstick 93 70 - 100 mg/dl [facility] Reference Test Clerk ID [id number] Test Performed by Nursing Services [facility] 05/13/2008 22:0 7 EST 05/15/2008 8:34 EST Jose Alejandro Castro MD CHEMISTRY & BLOOD GAS ORDERABLE S Final Result Performing Organization Address [facility] de Phone Number [facility] [address] [place] [address] * XRAY FEEDING TUBE PLACEMENT (05/13/2008 21:33 [...] 70 - 100 mg/dl [facility] Reference Test Clerk ID [id number] Test Performed by Nursing Services [facility] 05/13/2008 16:5 3 EST 05/15/2008 8:34 EST us Jose Alejandro Castro MD CHEMISTRY & BLOOD GAS ORDERABLE S Final Result Performing Organization Address [facility] Phone Number [facility] [address] [place] [address] * (ABNORMAL) ELECTROLYTES (05/13/2008 16:50 EST) Sodium [...] ORDERABLE S Final Result Performing Organization Address [facility] Phone Number [facility] [address] [place] [address] * SODIUM, URINE RANDOM (05/13/2008 13:00 EST) Sodium, Ur 130.0 mEq/L [facility] 05/13/2008 13:0 0 EST 05/13/2008 13:01 EST us Jose Alejandro Castro MD URINALYSIS ORDERABLES Final Res ult Performing Organization Address [facility] Phone Number [facility] [address] [place] [address] * MR HEAD W/WO CONTRAST (05/13/2008 11:47 [...] S Final Result [facility] [address] [place] [address] * (ABNORMAL) ALBUMIN (05/13/2008 10:00 EST) Albumin 2.2(L) 3.0 - 5.5 g/dl [facility] Comment:Sample retested, res ult confirmed 05/13/2008 10:0 0 EST 05/13/2008 10:23 EST us Jose Alejandro Castro MD CHEMISTRY & BLOOD GAS ORDERABLE S Final Result Performing Organization Address [facility] de Phone Number [facility] [address] [place] [address] * (ABNORMAL) ELECTROLYTES (05/13/2008 10:00 EST) Sodium [...] de Phone Number [facility] [address] [place] [address] * (ABNORMAL) BNP (05/13/2008 10:00 EST) BNP 653(H) <100 pg/ml [facility] 05/13/2008 10:0 0 EST 05/13/2008 10:23 EST Jose Alejandro Castro MD CHEMISTRY & BLOOD GAS ORDERABLE S Final Result Performing Organization Address [facility] de Phone Number [facility] [address] [place] [address] * (ABNORMAL) CALCIUM, IONIZED (05/13/2008 4:18 EST) Calcium, Ionized 1.09(L) 1.12 - 1.32 mmol/L [facility] [place] [id number] Test performed by Chemistry [facility] 05/13/2008 4:18 EST 05/13/2008 4:22 EST Jose Alejandro Castro MD CHEMISTRY & BLOOD GAS ORDERABLE S Final Result [facility] [address] [place] [address] * PORTABLE ABDOMEN 1 VIEW (05/13/2008 4:15 [...] (ABNORMAL) GLUCOSE, SERUM (05/13/2008 4:13 EST) Pathologist [facility] Glucose, Serum 126(H) 70 - 100 mg/dl [facility] 05/13/2008 4:13 EST 05/13/2008 4:13 EST Jose Alejandro Castro MD CHEMISTRY & BLOOD GAS ORDERABLE S Final Result [facility] [address] [place] [address] * PHOSPHORUS (05/13/2008 4:13 EST) Pathologist [facility] Phosphorus 2.8 2.7 - 4.7 mg/dl [facility] 05/13/2008 4:13 EST 05/13/2008 4:13 EST us Jose Alejandro Castro MD CHEMISTRY & BLOOD GAS ORDERABLE S Final Result [facility] [address] [place] [address] * (ABNORMAL) MAGNESIUM (05/13/2008 4:13 EST) Magnesium 1.5(L) 1.7 - 2.8 mg/dl [facility] 05/13/2008 4:13 EST 05/13/2008 4:13 EST Jose Alejandro Castro MD CHEMISTRY & BLOOD GAS ORDERABLE S Final Result Performing Organization Address [facility] Co de Phone Number [facility] [address] [place] [address] * CREATININE (05/13/2008 4:13 EST) Creatinine 0.70 0.6 - 1.2 mg/dl [facility] GFR, Calculated Age <18 ml/min/1.7 3m2 [facility] 05/13/2008 4:13 EST 05/13/2008 4:13 EST Jose Alejandro Castro MD CHEMISTRY & BLOOD GAS ORDERABLE S Final Result Performing Organization Address [facility] Co de Phone Number [facility] [address] [place] [address] * BUN (05/13/2008 4:13 EST) BUN 12 8 - 21 mg/dl [facility] 05/13/2008 4:13 EST 05/13/2008 4:13 EST us Jose Alejandro Castro MD CHEMISTRY & BLOOD GAS ORDERABLE S Final Result Performing Organization Address [facility]/ZIP Co de Phone Number [facility] [address] [place] [address] * (ABNORMAL) ELECTROLYTES (05/13/2008 4:13 EST) Sodium 144 136 - 145 mEq/L [facility] Potassium 3.0(L) 3.5 - 5.0 mEq/L [facility] Chloride 108 96 - 110 mEq/L [facility] CO2 29 24 - 32 mEq/L [facility] 05/13/2008 4:13 EST 05/13/2008 4:13 EST Jose Alejandro Castro MD CHEMISTRY & BLOOD GAS ORDERABLE S Final Result Performing Organization Address [facility]/ZIP Co de Phone Number [facility] [address] [place] [address] * (ABNORMAL) HEMAGRAM AND DIFFERENTIAL (05/13/2008 4:13 [...] ORDERABLES Final Result [facility] [address] [place] [address] * CALCIUM IONIZED (05/13/2008 4:13 EST) Ionized Calcium Note Sample sent to Lab. [facility] 05/13/2008 4:13 EST 05/13/2008 4:13 EST Jose Alejandro Castro MD CHEMISTRY & BLOOD GAS ORDERABLE S Final Result Performing Organization Address [facility] Co de Phone Number [facility] [address] [place] [address] * (ABNORMAL) GLUCOSE, GLUCOMETER (05/13/2008 4:08 EST) Glucose, Fingerstick 141(H) 70 - 100 mg/dl [facility] Reference Test Clerk ID [id number] Test Performed by Nursing Services [facility] 05/13/2008 4:08 EST 05/15/2008 8:33 EST Jose Alejandro Castro MD CHEMISTRY & BLOOD GAS ORDERABLE S Final Result Performing Organization Address [facility] de Phone Number [facility] [address] [place] [address] * UA WITH MICROSCOPIC (05/13/2008 2:03 EST) Color, UA Straw [facility] Clarity, UA Clear [facility] Glucose, UA Norm NORM [facility] Bilirubin, UA Neg NEG TRUE [facility] Ketones, UA Neg NEG [facility] Specific Hayes, Urine 1.015 1.005 - 1.02 [facility] [...] Renal Epithel, UA None seen NS /HPF [facility] Bacteria, UA None seen NS [...] ORDERABLES Final Res ult Performing Organization Address [facility] de Phone Number [facility] [address] [place] [address] * (ABNORMAL) ELECTROLYTES (05/12/2008 21:57 EST) Sodium [...] ORDERABLE S Final Result Performing Organization Address [facility] de Phone Number [facility] [address] [place] [address] * (ABNORMAL) GLUCOSE, GLUCOMETER (05/12/2008 21:49 EST) Glucose, Fingerstick 126(H) 70 - 100 mg/dl [facility] Reference Test Clerk ID [id number] Test Performed by Nursing Services [facility] 05/12/2008 21:4 9 EST 05/12/2008 23:19 EST us Jose Alejandro Castro MD CHEMISTRY & BLOOD GAS ORDERABLE S Final Result Performing Organization Address [facility] de Phone Number [facility] [address] [place] [address] * (ABNORMAL) GLUCOSE, GLUCOMETER (05/12/2008 16:06 EST) Glucose, Fingerstick 119(H) 70 - 100 mg/dl [facility] Reference Test Clerk ID [id number] Test Performed by Nursing Services [facility] 05/12/2008 16:0 6 EST 05/12/2008 23:19 EST Jose Alejandro Castro MD CHEMISTRY & BLOOD GAS ORDERABLE S Final Result Performing Organization Address [facility] de Phone Number [facility] [address] [place] [address] * (ABNORMAL) ELECTROLYTES (05/12/2008 16:05 EST) Sodium [...] de Phone Number [facility] [address] [place] [address] * (ABNORMAL) GLUCOSE, GLUCOMETER (05/12/2008 9:21 EST) Glucose, Fingerstick 133(H) 70 - 100 mg/dl [facility] Reference Test Clerk ID [id number] Test Performed by Nursing Services [facility] 05/12/2008 9:21 EST 05/12/2008 23:18 EST Jose Alejandro Castro MD CHEMISTRY & BLOOD GAS ORDERABLE S Final Result Performing Organization Address [facility] de Phone Number [facility] [address] [place] [address] * (ABNORMAL) ELECTROLYTES (05/12/2008 9:20 EST) Sodium 147(H) 136 - 145 mEq/L [facility] Potassium 3.2(L) 3.5 - 5.0 mEq/L [facility] Chloride 113(H) 96 - 110 mEq/L [facility] CO2 28 24 - 32 mEq/L [facility] 05/12/2008 9:20 EST 05/12/2008 9:30 EST Jose Alejandro Castro MD CHEMISTRY & BLOOD GAS ORDERABLE S Final Result Performing Organization Address [facility] de Phone Number [facility] [address] [place] [address] * CREATININE (05/12/2008 4:10 EST) Creatinine 0.70 0.6 - 1.2 mg/dl [facility] GFR, Calculated Age <18 ml/min/1.7 3m2 [facility] 05/12/2008 4:10 EST 05/12/2008 5:17 EST Jose Alejandro Castro MD CHEMISTRY & BLOOD GAS ORDERABLE S Final Result Performing Organization Address [facility] de Phone Number [facility] [address] [place] [address] * BUN (05/12/2008 4:10 EST) BUN 14 8 - 21 mg/dl [facility] 05/12/2008 4:10 EST 05/12/2008 5:17 EST us Jose Alejandro Castro MD CHEMISTRY & BLOOD GAS ORDERABLE S Final Result Performing Organization Address [facility] Co de Phone Number [facility] [address] [place] [address] * (ABNORMAL) ELECTROLYTES (05/12/2008 4:10 EST) Sodium [...] S Final Result [facility] [address] [place] [address] * (ABNORMAL) HEMAGRAM AND DIFFERENTIAL (05/12/2008 4:10 [...] Final Result Performing Organization Address [facility] de Phone Number [facility] [address] [place] [address] * GLUCOSE, GLUCOMETER (05/11/2008 20:32 EST) Glucose, Fingerstick 87 70 - 100 mg/dl [facility] Reference Test Clerk ID [id number] Test Performed by Nursing Services [facility] 05/11/2008 20:3 2 EST 05/11/2008 23:32 EST Jose Alejandro Castro MD CHEMISTRY & BLOOD GAS ORDERABLE S Final Result Performing Organization Address [facility] Phone Number [facility] [address] [place] [address] * (ABNORMAL) ELECTROLYTES (05/11/2008 20:30 EST) Sodium [...] ORDERABLE S Final Result Performing Organization Address [facility] Phone Number [facility] [address] [place] [address] * MRSA MOLECULAR DETECTION (05/11/2008 18:42 EST) Specimen Description Nares [facility] Result NEGATIVE for Methicillin Resistant Staphylococcus aureus DNA by PCR. [facility] Report Status Final 05/12/2008 [facility] 05/11/2008 18:4 2 EST 05/11/2008 18:42 EST Jose Alejandro Castro MD MICROBIOLOGY - GENERAL ORDERABL ES Final Result Performing Organization Address [facility] de Phone Number [facility] [address] [place] [address] * (ABNORMAL) GLUCOSE, SERUM (05/11/2008 15:17 EST) Glucose, Serum 174(H) 70 - 100 mg/dl [facility] 05/11/2008 15:1 7 EST 05/11/2008 15:17 EST Jose Alejandro Castro MD CHEMISTRY & BLOOD GAS ORDERABLE S Final Result Performing Organization Address [facility] de Phone Number [facility] [address] [place] [address] * ELECTROLYTES (05/11/2008 15:17 EST) Pathologist [facility] Sodium 139 136 - 145 mEq/L [facility] Potassium 4.1 3.5 - 5.0 mEq/L [facility] Chloride 107 96 - 110 mEq/L [facility] CO2 26 24 - 32 mEq/L [facility] 05/11/2008 15:1 7 EST 05/11/2008 15:17 EST Jose Alejandro Castro MD CHEMISTRY & BLOOD GAS ORDERABLE S Final Result Performing Organization Address [facility] Phone Number [facility] [address] [place] [address] * XRAY FEEDING TUBE PLACEMENT (05/11/2008 11:27 [...] S Final Result [facility] [address] [place] [address] * ELECTROLYTES (05/11/2008 8:18 EST) Sodium 140 [...] ORDERABLE S Final Result Performing Organization Address [facility]/ZIP Co de Phone Number [facility] [address] [place] [address] * CALCIUM, IONIZED (05/11/2008 4:07 EST) Calcium, Ionized 1.19 1.12 - 1.32 mmol/L [facility] shingle [place] [id number] Test performed by Chemistry [facility] 05/11/2008 4:07 EST 05/11/2008 4:14 EST Jose Alejandro Castro MD CHEMISTRY & BLOOD GAS ORDERABLE S Final Result Performing Organization Address [facility] Co de Phone Number [facility] [address] [place] [address] * (ABNORMAL) GLUCOSE, SERUM (05/11/2008 3:55 EST) Glucose, Serum 126(H) 70 - 100 mg/dl [facility] 05/11/2008 3:55 EST 05/11/2008 4:01 EST Jose Alejandro Castro MD CHEMISTRY & BLOOD GAS ORDERABLE S Final Result Performing Organization Address [facility] Co de Phone Number [facility] [address] [place] [address] * PHOSPHORUS (05/11/2008 3:55 EST) Phosphorus 2.9 2.7 - 4.7 mg/dl [facility] 05/11/2008 3:55 EST 05/11/2008 4:01 EST us Jose Alejandro Castro MD CHEMISTRY & BLOOD GAS ORDERABLE S Final Result Performing Organization Address [facility] Co de Phone Number [facility] [address] [place] [address] * MAGNESIUM (05/11/2008 3:55 EST) Magnesium 1.7 1.7 - 2.8 mg/dl [facility] 05/11/2008 3:55 EST 05/11/2008 4:01 EST Jose Alejandro Castro MD CHEMISTRY & BLOOD GAS ORDERABLE S Final Result Performing Organization Address [facility]/ZIP Co de Phone Number [facility] [address] [place] [address] * CREATININE (05/11/2008 3:55 EST) Creatinine 0.60 0.6 - 1.2 mg/dl [facility] GFR, Calculated Age <18 ml/min/1.7 3m2 [facility] 05/11/2008 3:55 EST 05/11/2008 4:01 EST Jose Alejandro Castro MD CHEMISTRY & BLOOD GAS ORDERABLE S Final Result Performing Organization Address [facility] Co de Phone Number [facility] [address] [place] [address] * BUN (05/11/2008 3:55 EST) BUN 17 8 - 21 mg/dl [facility] 05/11/2008 3:55 EST 05/11/2008 4:01 EST Jose Alejandro Castro MD CHEMISTRY & BLOOD GAS ORDERABLE S Final Result Performing Organization Address [facility]/ZIP Co de Phone Number [facility] [address] [place] [address] * ELECTROLYTES (05/11/2008 3:55 EST) Sodium 139 136 - 145 mEq/L [facility] Potassium 4.0 3.5 - 5.0 mEq/L [facility] Chloride 107 96 - 110 mEq/L [facility] CO2 25 24 - 32 mEq/L [facility] 05/11/2008 3:55 EST 05/11/2008 4:01 EST us Jose Alejandro Castro MD CHEMISTRY & BLOOD GAS ORDERABLE S Final Result Performing Organization Address [facility]/ZIP Co de Phone Number [facility] [address] [place] [address] * (ABNORMAL) HEMAGRAM AND DIFFERENTIAL (05/11/2008 3:55 [...] PROBE ORDERABLES Final Result Performing Organization Address [facility]/ZIP Co de Phone Number [facility] [address] [place] [address] * CALCIUM IONIZED (05/11/2008 3:55 EST) Ionized Calcium Note Sample sent to Lab. [facility] 05/11/2008 3:55 EST 05/11/2008 4:01 EST Jose Alejandro Csatro MD CHEMISTRY & BLOOD GAS ORDERABLE S Final Result Performing Organization Address [facility] de Phone Number [facility] [address] [place] [address] * CALCIUM, IONIZED (05/11/2008 0:56 EST) Calcium, Ionized 1.21 1.12 - 1.32 mmol/L [facility] shingle packer ID [id number] Test performed by Chemistry [facility] 05/11/2008 0:56 EST 05/11/2008 0:59 EST Jose Alejandro Castro MD CHEMISTRY & BLOOD GAS ORDERABLE S Final Result Performing Organization Address [facility] Phone Number [facility] [address] [place] [address] * (ABNORMAL) GLUCOSE, SERUM (05/11/2008 0:20 EST) Glucose, Serum 131(H) 70 - 100 mg/dl [facility] 05/11/2008 0:20 EST 05/11/2008 0:36 EST Jose Alejandro Castro MD CHEMISTRY & BLOOD GAS ORDERABLE S Final Result Performing Organization Address [facility] de Phone Number [facility] [address] [place] [address] * PHOSPHORUS (05/11/2008 0:20 EST) Phosphorus 2.9 2.7 - 4.7 mg/dl [facility] 05/11/2008 0:20 EST 05/11/2008 0:36 EST us Jose Alejandro Castro MD CHEMISTRY & BLOOD GAS ORDERABLE S Final Result Performing Organization Address [facility] de Phone Number [facility] [address] [place] [address] * MAGNESIUM (05/11/2008 0:20 EST) Magnesium 1.7 1.7 - 2.8 mg/dl [facility] 05/11/2008 0:20 EST 05/11/2008 0:36 EST Jose Alejandro Castro MD CHEMISTRY & BLOOD GAS ORDERABLE S Final Result Performing Organization Address [facility] de Phone Number [facility] [address] [place] [address] * ELECTROLYTES (05/11/2008 0:20 EST) Sodium 139 136 - 145 mEq/L [facility] Potassium 4.2 3.5 - 5.0 mEq/L [facility] Chloride 105 96 - 110 mEq/L [facility] CO2 28 24 - 32 mEq/L [facility] 05/11/2008 0:20 EST 05/11/2008 0:36 EST Jose Alejandro Castro MD CHEMISTRY & BLOOD GAS ORDERABLE S Final Result Performing Organization Address [facility] Phone Number [facility] [address] [place] [address] * CALCIUM IONIZED (05/11/2008 0:20 EST) Ionized Calcium Note Sample sent to Lab. [facility] 05/11/2008 0:20 EST 05/11/2008 0:36 EST Jose Alejandro Castro MD CHEMISTRY & BLOOD GAS ORDERABLE S Final Result Performing Organization Address [facility] de Phone Number [facility] [address] [place] [address] * CALCIUM, IONIZED (05/10/2008 20:18 EST) Calcium, Ionized 1.19 1.12 - 1.32 mmol/L [facility]IS[facility] shingle packer [place] [id number] Test performed by Chemistry [facility] 05/10/2008 20:1 8 EST 05/10/2008 20:20 EST us Jose Alejandro Castro MD CHEMISTRY & BLOOD GAS ORDERABLE S Final Result [facility] [address] [place] [address] * (ABNORMAL) GLUCOSE, SERUM (05/10/2008 19:55 EST) Glucose, Serum 126(H) 70 - 100 mg/dl [facility] 05/10/2008 19:5 5 EST 05/10/2008 20:02 EST us Jose Alejandro Castro MD CHEMISTRY & BLOOD GAS ORDERABLE S Final Result Performing Organization Address [facility] Co de Phone Number [facility] [address] [place] [address] * PHOSPHORUS (05/10/2008 19:55 EST) Phosphorus 2.7 2.7 - 4.7 mg/dl [facility] 05/10/2008 19:5 5 EST 05/10/2008 20:02 EST us Jose Alejandro Castro MD CHEMISTRY & BLOOD GAS ORDERABLE S Final Result Performing Organization Address [facility] Co de Phone Number [facility] [address] [place] [address] * MAGNESIUM (05/10/2008 19:55 EST) Magnesium 1.7 1.7 - 2.8 mg/dl [facility] 05/10/2008 19:5 5 EST 05/10/2008 20:02 EST us Jose Alejandro Castro MD CHEMISTRY & BLOOD GAS ORDERABLE S Final Result Performing Organization Address City/[facility]/ZIP Co de Phone Number [facility] [address] [place] [address] * ELECTROLYTES (05/10/2008 19:55 EST) Sodium 136 [...] S Final Result [facility] [address] [place] [address] * (ABNORMAL) HEMAGRAM AND DIFFERENTIAL (05/10/2008 19:55 [...] DNA PROBE ORDERABLES Final Result [facility] [address] [place] [address] * CALCIUM IONIZED (05/10/2008 19:55 EST) Ionized Calcium Note Sample sent to Lab. [facility] 05/10/2008 19:5 5 EST 05/10/2008 20:02 EST Jose Alejandro Castro MD CHEMISTRY & BLOOD GAS ORDERABLE S Final Result Performing Organization Address City/[facility]/ZIP Co de Phone Number [facility] [address] [place] [address] * CALCIUM, IONIZED (05/10/2008 16:34 EST) Calcium, Ionized 1.19 1.12 - 1.32 mmol/L [place] [id number] Test performed by Chemistry [facility] 05/10/2008 16:3 4 EST 05/10/2008 16:37 EST Jose Alejandro Castro MD CHEMISTRY & BLOOD GAS ORDERABLE S Final Result Performing Organization Address [facility] Co de Phone Number [facility] [address] [place] [address] * (ABNORMAL) GLUCOSE, SERUM (05/10/2008 16:23 EST) Glucose, Serum 109(H) 70 - 100 mg/dl [facility] 05/10/2008 16:2 3 EST 05/10/2008 16:23 EST Jose Alejandro Castro MD CHEMISTRY & BLOOD GAS ORDERABLE S Final Result Performing Organization Address City/[facility] Co de Phone Number [facility] [address] [place] [address] * PHOSPHORUS (05/10/2008 16:23 EST) Phosphorus 3.1 2.7 - 4.7 mg/dl [facility] 05/10/2008 16:2 3 EST 05/10/2008 16:23 EST us Jose Alejandro Castro MD CHEMISTRY & BLOOD GAS ORDERABLE S Final Result Performing Organization Address [facility] de Phone Number [facility] [address] [place] [address] * MAGNESIUM (05/10/2008 16:23 EST) Magnesium 1.7 1.7 - 2.8 mg/dl [facility] 05/10/2008 16:2 3 EST 05/10/2008 16:23 EST us Jose Alejandro Castro MD CHEMISTRY & BLOOD GAS ORDERABLE S Final Result Performing Organization Address [facility] de Phone Number [facility] [address] [place] [address] * (ABNORMAL) ELECTROLYTES (05/10/2008 16:23 EST) Sodium [...] ORDERABLE S Final Result Performing Organization Address [facility] de Phone Number [facility] [address] [place] [address] * CALCIUM IONIZED (05/10/2008 16:23 EST) Ionized Calcium Note Sample sent to Lab. [facility] 05/10/2008 16:2 3 EST 05/10/2008 16:23 EST us Jose Alejandro Castro MD CHEMISTRY & BLOOD GAS ORDERABLE S Final Result Performing Organization [facility] Co de Phone Number [facility] [address] [place] [address] * (ABNORMAL) GLUCOSE, GLUCOMETER (05/10/2008 16:16 EST) Glucose, Fingerstick 126(H) 70 - 100 mg/dl [facility] Reference Test Clerk ID [id number] Test Performed by Nursing Services [facility] 05/10/2008 16:1 6 EST 05/10/2008 23:15 EST us Jose Alejandro Castro MD CHEMISTRY & BLOOD GAS ORDERABLE S Final Result Performing Organization Address [facility] de Phone Number [facility] [address] [place] [address] * (ABNORMAL) BLOOD GAS, G3 ISTAT (05/10/2008 [...] [facility] Sample Type VENOUS ANISHA MCF[facility] shingle packer ID [id number] Test Performed by Respiratory [facility] 05/10/2008 13:0 8 EST 05/10/2008 13:17 EST us Jose Alejandro Castro MD CHEMISTRY & BLOOD GAS ORDERABLE S Final Result Performing Organization Address [facility] de Phone Number [facility] [address] [place] [address] * SODIUM, URINE RANDOM (05/10/2008 12:27 EST) Sodium, Ur 65.0 mEq/L [facility] 05/10/2008 12:2 7 EST 05/10/2008 12:30 EST Jose Alejandro Castro MD URINALYSIS ORDERABLES Final Res ult Performing Organization Address [facility] Co de Phone Number [facility] [address] [place] [address] * CALCIUM, IONIZED (05/10/2008 12:27 EST) Calcium, Ionized 1.19 1.12 - 1.32 mmol/L [place] [id number] Test performed by Chemistry [facility] 05/10/2008 12:2 7 EST 05/10/2008 12:53 EST us Jose Alejandro Castro MD CHEMISTRY & BLOOD GAS ORDERABLE S Final Result Performing Organization Address [facility] de Phone Number [facility] [address] [place] [address] * (ABNORMAL) GLUCOSE, GLUCOMETER (05/10/2008 12:03 EST) Glucose, Fingerstick 120(H) 70 - 100 mg/dl [facility] Reference Test Clerk ID [id number] Test Performed by Nursing Services [facility] 05/10/2008 12:0 3 EST 05/10/2008 23:15 EST Jose Alejandro Castro MD CHEMISTRY & BLOOD GAS ORDERABLE S Final Result Performing Organization Address [facility] Co de Phone Number [facility] [address] [place] [address] * PHOSPHORUS (05/10/2008 11:28 EST) Phosphorus 2.9 2.7 - 4.7 mg/dl [facility] Comment:Heparinized plasma. 05/10/2008 11:2 8 EST 05/10/2008 12:14 EST Jose Alejandro Castro MD CHEMISTRY & BLOOD GAS ORDERABLE S Final Result Performing Organization Address [facility] Co de Phone Number [facility] [address] [place] [address] * MAGNESIUM (05/10/2008 11:28 EST) Pathologist [facility] Magnesium 1.8 1.7 - 2.8 mg/dl [facility] Comment:Heparinized plasma. 05/10/2008 11:2 8 EST 05/10/2008 12:14 EST Jose Alejandro Castro MD CHEMISTRY & BLOOD GAS ORDERABLE S Final Result Performing Organization Address [facility] Phone Number [facility] [address] [place] [address] * GLUCOSE, SERUM (05/10/2008 11:28 EST) Pathologist [facility] Glucose, Serum 97 70 - 100 mg/dl [facility] Comment:Heparinized plasma. 05/10/2008 11:2 8 EST 05/10/2008 12:14 EST Jose Alejandro Castro MD CHEMISTRY & BLOOD GAS ORDERABLE S Final Result Performing Organization Address [facility] Phone Number [facility] [address] [place] [address] * (ABNORMAL) ELECTROLYTES (05/10/2008 11:28 EST) [facility] Sodium 134(L) 136 - 145 mEq/L [facility] Comment:Heparinized plasma. Potassium 4.6 3.5 - 5.0 mEq/L [facility] Comment:Heparinized plasma. Chloride 104 96 - 110 mEq/L [facility] Comment:Heparinized plasma. CO2 25 24 - 32 mEq/L [facility] Comment:Heparinized plasma. 05/10/2008 11:2 8 EST 05/10/2008 12:14 EST us Jose Alejandro Castro MD CHEMISTRY & BLOOD GAS ORDERABLE S Final Result Performing Organization Address [facility] Phone Number [facility] [address] [place] [address] * CALCIUM IONIZED (05/10/2008 11:28 EST) [facility] Ionized Calcium Note Sample sent to Lab. [facility] 05/10/2008 11:2 8 EST 05/10/2008 12:14 EST us Jose Alejandro Castro MD CHEMISTRY & BLOOD GAS ORDERABLE S Final Result Performing Organization Address [facility] de Phone Number [facility] [address] [place] [address] * GLUCOSE, GLUCOMETER (05/10/2008 9:44 EST) Glucose, Fingerstick 95 70 - 100 mg/dl [facility] Reference Test Clerk ID [id number] Test Performed by Nursing Services [facility] 05/10/2008 9:44 EST 05/10/2008 23:15 EST us Jose Alejandro Castro MD CHEMISTRY & BLOOD GAS ORDERABLE S Final Result Performing Organization Address [facility] de Phone Number [facility] [address] [place] [address] * CALCIUM, IONIZED (05/10/2008 8:33 EST) Calcium, Ionized 1.20 1.12 - 1.32 mmol/L AN[place]HA [place] [id number] Test performed by Chemistry [facility] 05/10/2008 8:33 EST 05/10/2008 8:36 EST us Jose Alejandro Castro MD CHEMISTRY & BLOOD GAS ORDERABLE S Final Result Performing Organization Address [facility] de Phone Number [facility] [address] [place] [address] * (ABNORMAL) BLOOD GAS, CG4 ISTAT (05/10/2008 [...] [facility] Sample Type ARTERIAL ANISHA MCF[facility] shingle packer ID [id number] Test Performed by Respiratory [facility] 05/10/2008 8:29 EST 05/10/2008 8:33 EST us Jose Alejandro Castro MD CHEMISTRY & BLOOD GAS ORDERABLE S Final Result Performing Organization Address [facility] Co de Phone Number [facility] [address] [place] [address] * TESTS ADDED BY PHONE (05/10/2008 8:28 [...] de Phone Number [facility] [address] [place] [address] * (ABNORMAL) ELECTROLYTES (05/10/2008 8:28 EST) Sodium [...] ORDERABLE S Final Result Performing Organization Address [facility] de Phone Number [facility] [address] [place] [address] * CALCIUM IONIZED (05/10/2008 8:28 EST) Ionized Calcium Note Sample sent to Lab. [facility] 05/10/2008 8:28 EST 05/10/2008 8:28 EST us Jose Alejandro Castro MD CHEMISTRY & BLOOD GAS ORDERABLE S Final Result Performing Organization Address [facility] Co de Phone Number [facility] [address] [place] [address] * PHOSPHORUS (05/10/2008 8:28 EST) Phosphorus 3.1 2.7 - 4.7 mg/dl [facility] 05/10/2008 8:28 EST 05/10/2008 8:28 EST us Jose Alejandro Castro MD CHEMISTRY & BLOOD GAS ORDERABLE S Final Result Performing Organization Address [facility] Phone Number [facility] [address] [place] [address] * MAGNESIUM (05/10/2008 8:28 EST) Magnesium 1.8 1.7 - 2.8 mg/dl [facility] 05/10/2008 8:28 EST 05/10/2008 8:28 EST us Jose Alejandro Castro MD CHEMISTRY & BLOOD GAS ORDERABLE S Final Result Performing Organization Address [facility] de Phone Number [facility] [address] [place] [address] * (ABNORMAL) GLUCOSE, GLUCOMETER (05/10/2008 8:27 EST) Glucose, Fingerstick 102(H) 70 - 100 mg/dl [facility] Reference Test Clerk ID [id number] Test Performed by Nursing Services [facility] 05/10/2008 8:27 EST 05/10/2008 23:15 EST us Jose Alejandro Castro MD CHEMISTRY & BLOOD GAS ORDERABLE S Final Result [facility] [address] [place] [address] * (ABNORMAL) BLOOD GAS, G3 ISTAT (05/10/2008 [...] C [facility] FIO2 25 [facility] Sample Type VENOUS ANISHA MCFAR[place] shingle packer ID [id number] Test Performed by Respiratory [facility] 05/10/2008 8:19 EST 05/10/2008 8:33 EST us Jose Alejandro Castro MD CHEMISTRY & BLOOD GAS ORDERABLE S Final Result Performing Organization Address City/State/[facility] Co de Phone Number [facility] [address] [place] [address] * PORTABLE CHEST 1 VIEW (05/10/2008 7:24 [...] the duodenal bulb. Procedure Note Hamzah Torres, [facility] - 11/21/2008 acute resp failure cardex [...] Glucose, Fingerstick 83 70 - 100 mg/dl [facility] Reference Test Clerk ID [id number] Test Performed by Nursing Services [facility] 05/10/2008 7:02 EST 05/10/2008 23:15 EST Jose Alejandro Castro MD CHEMISTRY & BLOOD GAS ORDERABLE S Final Result Performing Organization Address City/[facility] Co de Phone Number [facility] [address] [place] [address] * (ABNORMAL) GLUCOSE, GLUCOMETER (05/10/2008 6:11 EST) Glucose, Fingerstick 110(H) 70 - 100 mg/dl [facility] Reference Test Clerk ID [id number] Test Performed by Nursing Services [facility] 05/10/2008 6:11 EST 05/10/2008 23:15 EST Jose Alejandro Castro MD CHEMISTRY & BLOOD GAS ORDERABLE S Final Result Performing Organization Address City/[facility] Co de Phone Number [facility] [address] [place] [address] * CALCIUM, IONIZED (05/10/2008 5:24 EST) Calcium, Ionized 1.13 1.12 - 1.32 mmol/L [place] [id number] Test performed by Chemistry [facility] 05/10/2008 5:24 EST 05/10/2008 5:33 EST us Jose Alejandro Castro MD CHEMISTRY & BLOOD GAS ORDERABLE S Final Result [facility] [address] [place] [address] * (ABNORMAL) BLOOD GAS, G3 ISTAT (05/10/2008 [...] [facility] Sample Type VENOUS ANISHA MCF[place] shingle packer ID [id number] Test Performed by Respiratory [facility] 05/10/2008 5:04 EST 05/10/2008 5:38 EST us Jose Alejandro Castro MD CHEMISTRY & BLOOD GAS ORDERABLE S Final Result [facility] [address] [place] [address] * (ABNORMAL) GLUCOSE, GLUCOMETER (05/10/2008 5:02 EST) Glucose, Fingerstick 110(H) 70 - 100 mg/dl [facility] Reference Test Clerk ID [id number] Test Performed by Nursing Services [facility] 05/10/2008 5:02 EST 05/10/2008 23:15 EST us Jose Alejandro Castro MD CHEMISTRY & BLOOD GAS ORDERABLE S Final Result [facility] [address] [place] [address] * TROPONIN I (05/10/2008 5:00 EST) Troponin I pre 2011 0.19 ng/ml [facility] Comment: Reference Range: Normal: ??Less than 0.05 Indeterminate: ??0.05-0.80 Positive: ??Greater than 0.80 05/10/2008 5:00 EST 05/10/2008 5:11 EST Jose Alejandro Castro MD CHEMISTRY & BLOOD GAS ORDERABLE S Final Result Performing Organization Address [facility] de Phone Number [facility] [address] [place] [address] * (ABNORMAL) CK MB WITH TOTAL CK (05/10/2008 5:00 EST) CK 3,919 U/L [facility] MB 38.9(H) 0 - 5.0 ng/ml [facility] CK-MB Index 1.0 0 - 2.5 [facility] 05/10/2008 5:00 EST 05/10/2008 5:11 EST Jose Alejandro Castro MD CHEMISTRY & BLOOD GAS ORDERABLE S Final Result Performing Organization Address [facility] de Phone Number [facility] [address] [place] [address] * (ABNORMAL) TOTAL PROTEIN (05/10/2008 5:00 EST) Total Protein 4.2(L) 6.3 - 8.6 g/dl [facility] 05/10/2008 5:00 EST 05/10/2008 5:11 EST Jose Alejandro Castro MD CHEMISTRY & BLOOD GAS ORDERABLE S Final Result Performing Organization Address [facility] de Phone Number [facility] [address] [place] [address] * GLUCOSE, SERUM (05/10/2008 5:00 EST) Glucose, Serum 97 70 - 100 mg/dl [facility] 05/10/2008 5:00 EST 05/10/2008 5:11 EST Jose Alejandro Castro MD CHEMISTRY & BLOOD GAS ORDERABLE S Final Result Performing Organization Address [facility] Co de Phone Number [facility] [address] [place] [address] * PHOSPHORUS (05/10/2008 5:00 EST) Phosphorus 3.3 2.7 - 4.7 mg/dl [facility] 05/10/2008 5:00 EST 05/10/2008 5:11 EST Jose Alejandro Castro MD CHEMISTRY & BLOOD GAS ORDERABLE S Final Result Performing Organization Address [facility] de Phone Number [facility] [address] [place] [address] * MAGNESIUM (05/10/2008 5:00 EST) Magnesium 1.8 1.7 - 2.8 mg/dl [facility] 05/10/2008 5:00 EST 05/10/2008 5:11 EST Jose Alejandro Castro MD CHEMISTRY & BLOOD GAS ORDERABLE S Final Result Performing Organization Address [facility] Phone Number [facility] [address] [place] [address] * GGT (05/10/2008 5:00 EST) GGT 23 10 - 35 U/L [facility] 05/10/2008 5:00 EST 05/10/2008 5:11 EST Jose Alejandro Castro MD CHEMISTRY & BLOOD GAS ORDERABLE S Final Result Performing Organization Address [facility] Co de Phone Number [facility] [address] [place] [address] * CREATININE (05/10/2008 5:00 EST) Creatinine 0.70 0.6 - 1.2 mg/dl [facility] GFR, Calculated Age <18 ml/min/1.7 3m2 [facility] 05/10/2008 5:00 EST 05/10/2008 5:11 EST Jose Alejandro Castro MD CHEMISTRY & BLOOD GAS ORDERABLE S Final Result Performing Organization Address [facility] Co de Phone Number [facility] [address] [place] [address] * BUN (05/10/2008 5:00 EST) BUN 18 8 - 21 mg/dl [facility] 05/10/2008 5:00 EST 05/10/2008 5:11 EST Jose Alejandro Castro MD CHEMISTRY & BLOOD GAS ORDERABLE S Final Result Performing Organization Address [facility] Phone Number [facility] [address] [place] [address] * (ABNORMAL) AST (05/10/2008 5:00 EST) AST 202(H) 15 - 46 U/L [facility] 05/10/2008 5:00 EST 05/10/2008 5:11 EST Jose Alejandro Castro MD CHEMISTRY & BLOOD GAS ORDERABLE S Final Result Performing Organization Address [facility] Phone Number [facility] [address] [place] [address] * (ABNORMAL) ALT (05/10/2008 5:00 EST) ALT 82(H) 0 - 45 U/L [facility] 05/10/2008 5:00 EST 05/10/2008 5:11 EST us Jose Alejandro Castro MD CHEMISTRY & BLOOD GAS ORDERABLE S Final Result Performing Organization Address [facility] Co de Phone Number [facility] [address] [place] [address] * ALKALINE PHOSPHATASE (05/10/2008 5:00 EST) Alkaline Phosphatase 112 65 - 260 U/L [facility] 05/10/2008 5:00 EST 05/10/2008 5:11 EST Jose Alejandro Castro MD CHEMISTRY & BLOOD GAS ORDERABLE S Final Result Performing Organization Address [facility] de Phone Number [facility] [address] [place] [address] * (ABNORMAL) ALBUMIN (05/10/2008 5:00 EST) Pathologist [facility] Albumin 2.1(L) 3.0 - 5.5 g/dl [facility] 05/10/2008 5:00 EST 05/10/2008 5:11 EST Jose Alejandro Castro MD CHEMISTRY & BLOOD GAS ORDERABLE S Final Result Performing Organization Address [facility] Phone Number [facility] [address] [place] [address] * (ABNORMAL) ELECTROLYTES (05/10/2008 5:00 EST) Pathologist [facility] Sodium 134(L) 136 - 145 mEq/L [facility] de Phone Number [facility] [address] [place] [address] * (ABNORMAL) HEMAGRAM AND DIFFERENTIAL (05/10/2008 5:00 EST) Pathologist [facility] WBC 24.49(H) 4.6 - 11.2 K/cmm [...] [facility] ABS Monocytes 0.49 K/cmm [facility] RBC Morphology 1+ Anisocytosis 1+ Microcytes 1+ Poikilocytosis [facility] WBC Morphology 1+ Toxic granulation [facility] Type of Diff: Manual TRUE [facility] 05/10/2008 5:00 EST 05/10/2008 5:11 EST oJse Alejandro Castro MD PACKAGES & DNA PROBE ORDERABLES Final Result Performing Organization Address [facility] de Phone Number [facility] [address] [place] [address] * (ABNORMAL) PTT (05/10/2008 5:00 EST) PTT 38(H) 20 - 35 secs [facility] Comment:Therapeutic Heparin range: 60-100 seconds 05/10/2008 5:00 EST 05/10/2008 5:11 EST Jose Alejandro Castro MD HEMATOLOGY & PF4 ORDERABLES Fin al Result Performing Organization Address [facility] Co de Phone Number [facility] [address] [place] [address] * (ABNORMAL) PROTIME (05/10/2008 5:00 EST) Pro [...] ORDERABLES Fin al Result Performing Organization Address [facility] de Phone Number [facility] [address] [place] [address] * CALCIUM IONIZED (05/10/2008 5:00 EST) Ionized Calcium Note Sample sent to Lab. [facility] 05/10/2008 5:00 EST 05/10/2008 5:11 EST Jose Alejandro Castro MD CHEMISTRY & BLOOD GAS ORDERABLE S Final Result Performing Organization Address [facility] de Phone Number [facility] [address] [place] [address] * (ABNORMAL) BLOOD GAS, CG4 ISTAT (05/10/2008 4:59 EST) pH, i-STAT 7.41 7.35 - 7.45 [facility] pCO2, i-STAT 34(L) 35 - 45 mmHg [facility] pO2, i-STAT 102(H) 85 - 100 mmHg [facility] TCO2, i-STAT 23 mEq/L [facility] O2 Saturation 98 % [facility] Lactate, i-STAT 1.1 mmol/L [facility] Base Deficit 3 [facility] Temperature 36.0 C [facility] FIO2 25 [facility] Sample Type ARTERIAL [place]ISHA GARCIA Tech ID [id number] Test Performed by Respiratory [facility] 05/10/2008 4:59 EST 05/10/2008 5:38 EST Jose Alejandro Castro MD CHEMISTRY & BLOOD GAS ORDERABLE S Final Result Performing Organization Address City/[facility]/ZIP Co de Phone Number [facility] [address] [place] [address] * GLUCOSE, GLUCOMETER (05/10/2008 4:03 EST) Glucose, Fingerstick 87 70 - 100 mg/dl [facility] Reference Test Clerk ID [id number] Test Performed by Nursing Services [facility] 05/10/2008 4:03 EST 05/10/2008 23:15 EST Jose Alejandro Castro MD CHEMISTRY & BLOOD GAS ORDERABLE S Final Result Performing Organization Address [facility] Co de Phone Number [facility] [address] [place] [address] * (ABNORMAL) GLUCOSE, GLUCOMETER (05/10/2008 3:00 EST) Glucose, Fingerstick 68(L) 70 - 100 mg/dl [facility] Reference Test Clerk ID [id number] Test Performed by Nursing Services [facility] 05/10/2008 3:00 EST 05/10/2008 23:15 EST Jose Alejandro Castro MD CHEMISTRY & BLOOD GAS ORDERABLE S Final Result Performing Organization Address [facility] Co de Phone Number [facility] [address] [place] [address] * (ABNORMAL) GLUCOSE, GLUCOMETER (05/10/2008 2:03 EST) Glucose, Fingerstick 116(H) 70 - 100 mg/dl [facility] Reference Test Clerk ID [id number] Test Performed by Nursing Services [facility] 05/10/2008 2:03 EST 05/10/2008 23:15 EST Jose Alejandro Castro MD CHEMISTRY & BLOOD GAS ORDERABLE S Final Result Performing Organization Address City/[facility]/ZIP Co de Phone Number [facility] [address] [place] [address] * (ABNORMAL) BLOOD GAS, CG4 ISTAT (05/10/2008 [...] [facility] Sample Type ARTERIAL ANISHA MCFAR[place] shingle packer ID [id number] Test Performed by Respiratory [facility] 05/10/2008 1:22 EST 05/10/2008 1:26 EST Jose Alejandro Castro MD CHEMISTRY & BLOOD GAS ORDERABLE S Final Result [facility] [address] [place] [address] * (ABNORMAL) GLUCOSE, GLUCOMETER (05/10/2008 1:21 EST) Glucose, Fingerstick 130(H) 70 - 100 mg/dl [facility] Reference Test Clerk ID [id number] Test Performed by Nursing Services [facility] 05/10/2008 1:21 EST 05/10/2008 23:15 EST Jose Alejandro Castro MD CHEMISTRY & BLOOD GAS ORDERABLE S Final Result [facility] [address] [place] [address] * CALCIUM, IONIZED (05/10/2008 1:20 EST) Calcium, Ionized 1.15 1.12 - 1.32 mmol/L ANISHA [place] [id number] Test performed by Chemistry [facility] 05/10/2008 1:20 EST 05/10/2008 1:23 EST us Jose Alejandro Castro MD CHEMISTRY & BLOOD GAS ORDERABLE S Final Result [facility] [address] [place] [address] * (ABNORMAL) BLOOD GAS, G3 ISTAT (05/10/2008 [...] [facility] Sample Type VENOUS [facility] shingle packer [place] [id number] Test Performed by Respiratory [facility] 05/10/2008 1:17 EST 05/10/2008 1:26 EST us Jose Alejandro Castro MD CHEMISTRY & BLOOD GAS ORDERABLE S Final Result [facility] [address] [place] [address] * (ABNORMAL) BLOOD GAS, CG4 ISTAT (05/10/2008 [...] [facility] Sample Type ARTERIAL [facility] shingle packer [place] [id number] Test Performed by Respiratory [facility] 05/10/2008 1:12 EST 05/10/2008 1:26 EST us Jose Alejandro Castro MD CHEMISTRY & BLOOD GAS ORDERABLE S Final Result Performing Organization Address [facility] Phone Number [facility] [address] [place] [address] * PHOSPHORUS (05/10/2008 1:10 EST) Phosphorus 3.1 2.7 - 4.7 mg/dl [facility] 05/10/2008 1:10 EST 05/10/2008 1:17 EST Jose Alejandro Castro MD CHEMISTRY & BLOOD GAS ORDERABLE S Final Result Performing Organization Address [facility] Phone Number [facility] [address] [place] [address] * MAGNESIUM (05/10/2008 1:10 EST) Magnesium 1.9 1.7 - 2.8 mg/dl [facility] 05/10/2008 1:10 EST 05/10/2008 1:17 EST us Jose Alejandro Castro MD CHEMISTRY & BLOOD GAS ORDERABLE S Final Result Performing Organization Address [facility] Phone Number [facility] [address] [place] [address] * (ABNORMAL) ELECTROLYTES (05/10/2008 1:10 EST) Sodium [...] S Final Result [facility] [address] [place] [address] * CALCIUM IONIZED (05/10/2008 1:10 EST) Ionized Calcium Note Sample sent to Lab. [facility] 05/10/2008 1:10 EST 05/10/2008 1:17 EST Jose Alejandro Castro MD CHEMISTRY & BLOOD GAS ORDERABLE S Final Result Performing Organization Address City/[facility]/ZIP Co de Phone Number [facility] [address] [place] [address] * (ABNORMAL) GLUCOSE, GLUCOMETER (05/10/2008 0:20 EST) Glucose, Fingerstick 115(H) 70 - 100 mg/dl [facility] Reference Test Clerk ID [id number] Test Performed by Nursing Services [facility] 05/10/2008 0:20 EST 05/10/2008 23:14 EST Jose Alejandro Castro MD CHEMISTRY & BLOOD GAS ORDERABLE S Final Result Performing Organization Address [facility] Co de Phone Number [facility] [address] [place] [address] * (ABNORMAL) GLUCOSE, GLUCOMETER (05/09/2008 23:03 EST) Glucose, Fingerstick 113(H) 70 - 100 mg/dl [facility] Reference Test Clerk ID [id number] Test Performed by Nursing Services [facility] 05/09/2008 23:0 3 EST 05/09/2008 23:14 EST Jose Alejandro Castro MD CHEMISTRY & BLOOD GAS ORDERABLE S Final Result Performing Organization Address [facility] Co de Phone Number [facility] [address] [place] [address] * (ABNORMAL) GLUCOSE, GLUCOMETER (05/09/2008 22:11 EST) Glucose, Fingerstick 118(H) 70 - 100 mg/dl [facility] Reference Test Clerk ID [id number] Test Performed by Nursing Services [facility] 05/09/2008 22:1 1 EST 05/09/2008 23:14 EST Jose Alejandro Castro MD CHEMISTRY & BLOOD GAS ORDERABLE S Final Result Performing Organization Address [facility] Phone Number [facility] [address] [place] [address] * (ABNORMAL) CALCIUM, IONIZED (05/09/2008 21:26 EST) Calcium, Ionized 1.08(L) 1.12 - 1.32 mmol/L [facility] shingle [place]er [place] [id number] Test performed by Chemistry [facility] 05/09/2008 21:2 6 EST 05/09/2008 21:29 EST Jose Alejandro Castro MD CHEMISTRY & BLOOD GAS ORDERABLE S Final Result Performing Organization Address [facility] Phone Number [facility] [address] [place] [address] * GLUCOSE, GLUCOMETER (05/09/2008 21:25 EST) Glucose, Fingerstick 87 70 - 100 mg/dl [facility] Reference Test Clerk ID [id number] Test Performed by Nursing Services [facility] 05/09/2008 21:2 5 EST 05/09/2008 23:14 EST Jose Alejandro Castro MD CHEMISTRY & BLOOD GAS ORDERABLE S Final Result Performing Organization Address [facility] de Phone Number [facility] [address] [place] [address] * (ABNORMAL) BLOOD GAS, G3 ISTAT (05/09/2008 [...] [facility] Sample Type VENOUS ANISHA [facility] shingle packer ID [id number] Test Performed by Respiratory [facility] 05/09/2008 21:1 5 EST 05/09/2008 21:25 EST Jose Alejandro Castro MD CHEMISTRY & BLOOD GAS ORDERABLE S Final Result Performing Organization Address [facility] de Phone Number [facility] [address] [place] [address] * PHOSPHORUS (05/09/2008 21:10 EST) Pathologist [facility] Phosphorus 2.9 2.7 - 4.7 mg/dl [facility] 05/09/2008 21:1 0 EST 05/09/2008 21:16 EST Jose Alejandro Castro MD CHEMISTRY & BLOOD GAS ORDERABLE S Final Result Performing Organization Address [facility] Phone Number [facility] [address] [place] [address] * MAGNESIUM (05/09/2008 21:10 EST) [facility] Magnesium 1.9 1.7 - 2.8 mg/dl [facility] 05/09/2008 21:1 0 EST 05/09/2008 21:16 EST Jose Alejandro Castro MD CHEMISTRY & BLOOD GAS ORDERABLE S Final Result Performing Organization Address [facility] de Phone Number [facility] [address] [place] [address] * (ABNORMAL) ELECTROLYTES (05/09/2008 21:10 EST) Sodium [...] ORDERABLE S Final Result Performing Organization Address [facility] Co de Phone Number [facility] [address] [place] [address] * CALCIUM IONIZED (05/09/2008 21:10 EST) Ionized Calcium Note Sample sent to Lab. [facility] 05/09/2008 21:1 0 EST 05/09/2008 21:16 EST us Jose Alejandro Castro MD CHEMISTRY & BLOOD GAS ORDERABLE S Final Result Performing Organization Address [facility] de Phone Number [facility] [address] [place] [address] * (ABNORMAL) BLOOD GAS, CG4 ISTAT (05/09/2008 [...] [facility] Sample Type ARTERIAL ANISHA [facility] shingle packer ID [id number] Test Performed by Respiratory [facility] 05/09/2008 21:0 9 EST 05/09/2008 21:25 EST us Jose Alejandro Castro MD CHEMISTRY & BLOOD GAS ORDERABLE S Final Result Performing Organization Address [facility] de Phone Number [facility] [address] [place] [address] * GLUCOSE, GLUCOMETER (05/09/2008 20:15 EST) Glucose, Fingerstick 94 70 - 100 mg/dl [facility] Reference Test Clerk ID [id number] Test Performed by Nursing Services [facility] 05/09/2008 20:1 5 EST 05/09/2008 23:14 EST Jose Alejandro Castro MD CHEMISTRY & BLOOD GAS ORDERABLE S Final Result Performing Organization Address [facility] Co de Phone Number [facility] [address] [place] [address] * GLUCOSE, GLUCOMETER (05/09/2008 19:03 EST) Glucose, Fingerstick 84 70 - 100 mg/dl [facility] Reference Test Clerk ID [id number] Test Performed by Nursing Services [facility] 05/09/2008 19:0 3 EST 05/09/2008 23:14 EST Jose Alejandro Castro MD CHEMISTRY & BLOOD GAS ORDERABLE S Final Result Performing Organization Address [facility] Co de Phone Number [facility] [address] [place] [address] * GLUCOSE, GLUCOMETER (05/09/2008 18:09 EST) Glucose, Fingerstick 72 70 - 100 mg/dl [facility] Reference Test Clerk ID [id number] Test Performed by Nursing Services [facility] 05/09/2008 18:0 9 EST 05/09/2008 23:14 EST Jose Alejandro Castro MD CHEMISTRY & BLOOD GAS ORDERABLE S Final Result Performing Organization Address [facility] de Phone Number [facility] [address] [place] [address] * CALCIUM, IONIZED (05/09/2008 17:20 EST) Calcium, Ionized 1.12 1.12 - 1.32 mmol/L [place]ingle [place] [id number] Test performed by Chemistry [facility] 05/09/2008 17:2 0 EST 05/09/2008 17:24 EST us Jose Alejandro Castro MD CHEMISTRY & BLOOD GAS ORDERABLE S Final Result Performing Organization Address [facility] Co de Phone Number [facility] [address] [place] [address] * (ABNORMAL) BLOOD GAS, CG4 ISTAT (05/09/2008 [...] [facility] Sample Type ARTERIAL LANCASTER [facility] shingle packer ID [id number] Test Performed by Respiratory [facility] 05/09/2008 17:1 6 EST 05/09/2008 17:22 EST us Jose Alejandro Castro MD CHEMISTRY & BLOOD GAS ORDERABLE S Final Result Performing Organization Address [facility] de Phone Number [facility] [address] [place] [address] * (ABNORMAL) BLOOD GAS, G3 ISTAT (05/09/2008 [...] [facility] Sample Type VENOUS LANCASTER [facility] shingle packer ID [id number] Test Performed by Respiratory [facility] 05/09/2008 17:0 9 EST 05/09/2008 17:22 EST Jose Alejandro Castro MD CHEMISTRY & BLOOD GAS ORDERABLE S Final Result [facility] [address] [place] [address] * GLUCOSE, GLUCOMETER (05/09/2008 17:06 EST) Glucose, Fingerstick 85 70 - 100 mg/dl [facility] Reference Test Clerk ID [id number] Test Performed by Nursing Services [facility] 05/09/2008 17:0 6 EST 05/09/2008 23:14 EST us Jose Alejandro Castro MD CHEMISTRY & BLOOD GAS ORDERABLE S Final Result Performing Organization Address [facility] Co de Phone Number [facility] [address] [place] [address] * GLUCOSE, SERUM (05/09/2008 17:00 EST) Glucose, Serum 72 70 - 100 mg/dl [facility] 05/09/2008 17:0 0 EST 05/09/2008 17:15 EST Jose Alejandro Castro MD CHEMISTRY & BLOOD GAS ORDERABLE S Final Result Performing Organization Address [facility] Co de Phone Number [facility] [address] [place] [address] * PHOSPHORUS (05/09/2008 17:00 EST) Phosphorus 2.9 2.7 - 4.7 mg/dl [facility] 05/09/2008 17:0 0 EST 05/09/2008 17:15 EST Jose Alejandro Castro MD CHEMISTRY & BLOOD GAS ORDERABLE S Final Result Performing Organization Address [facility]/ZIP Co de Phone Number [facility] [address] [place] [address] * MAGNESIUM (05/09/2008 17:00 EST) Magnesium 2.0 1.7 - 2.8 mg/dl [facility] 05/09/2008 17:0 0 EST 05/09/2008 17:15 EST Jose Alejandro Castro MD CHEMISTRY & BLOOD GAS ORDERABLE S Final Result Performing Organization Address [facility]/ZIP Co de Phone Number [facility] [address] [place] [address] * CREATININE (05/09/2008 17:00 EST) Pathologist [facility] Creatinine 0.80 0.6 - 1.2 mg/dl [facility] GFR, Calculated Age <18 ml/min/1.7 3m2 [facility] 05/09/2008 17:0 0 EST 05/09/2008 17:15 EST Jose Alejandro Castro MD CHEMISTRY & BLOOD GAS ORDERABLE S Final Result Performing Organization Address [facility] Co de Phone Number [facility] [address] [place] [address] * BUN (05/09/2008 17:00 EST) BUN 16 8 - 21 mg/dl [facility] 05/09/2008 17:0 0 EST 05/09/2008 17:15 EST Jose Alejandro Castro MD CHEMISTRY & BLOOD GAS ORDERABLE S Final Result Performing Organization Address [facility] de Phone Number [facility] [address] [place] [address] * (ABNORMAL) ELECTROLYTES (05/09/2008 17:00 EST) Sodium [...] ORDERABLE S Final Result Performing Organization Address [facility] Co de Phone Number [facility] [address] [place] [address] * CALCIUM IONIZED (05/09/2008 17:00 EST) Ionized Calcium Note Sample sent to Lab. [facility] 05/09/2008 17:0 0 EST 05/09/2008 17:15 EST us Jose Alejandro Castro MD CHEMISTRY & BLOOD GAS ORDERABLE S Final Result Performing Organization Address [facility] de Phone Number [facility] [address] [place] [address] * GLUCOSE, GLUCOMETER (05/09/2008 15:58 EST) Glucose, Fingerstick 85 70 - 100 mg/dl [facility] Reference Test Clerk ID [id number] Test Performed by Nursing Services [facility] 05/09/2008 15:5 8 EST 05/09/2008 23:14 EST us Jose Alejandro Castro MD CHEMISTRY & BLOOD GAS ORDERABLE S Final Result Performing Organization Address [facility] de Phone Number [facility] [address] [place] [address] * GLUCOSE, GLUCOMETER (05/09/2008 15:04 EST) Glucose, Fingerstick 83 70 - 100 mg/dl [facility] Reference Test Clerk ID [id number] Test Performed by Nursing Services [facility] 05/09/2008 15:0 4 EST 05/09/2008 23:14 EST us Jose Alejandro Castro MD CHEMISTRY & BLOOD GAS ORDERABLE S Final Result Performing Organization Address [facility]/ZIP Co de Phone Number [facility] [address] [place] [address] * GLUCOSE, GLUCOMETER (05/09/2008 14:05 EST) Glucose, Fingerstick 88 70 - 100 mg/dl [facility] Reference Test Clerk ID [id number] Test Performed by Nursing Services [facility] 05/09/2008 14:0 5 EST 05/09/2008 23:14 EST us Jose Alejandro Castro MD CHEMISTRY & BLOOD GAS ORDERABLE S Final Result Performing Organization Address [facility] Co de Phone Number [facility] [address] [place] [address] * (ABNORMAL) BLOOD GAS, G3 ISTAT (05/09/2008 [...] [facility] Sample Type VENOUS ANISHA [facility] shingle packer ID [id number] Test Performed by Respiratory [facility] 05/09/2008 13:2 6 EST 05/09/2008 13:30 EST us Jose Alejandro Castro MD CHEMISTRY & BLOOD GAS ORDERABLE S Final Result [facility] [address] [place] [address] * (ABNORMAL) CALCIUM, IONIZED (05/09/2008 13:21 EST) Calcium, Ionized 1.11(L) 1.12 - 1.32 mmol/L [facility] shingle [place]er [place] [id number] Test performed by Chemistry [facility] 05/09/2008 13:2 1 EST 05/09/2008 13:30 EST Jose Alejandro Castro MD CHEMISTRY & BLOOD GAS ORDERABLE S Final Result Performing Organization Address [facility] Co de Phone Number [facility] [address] [place] [address] * (ABNORMAL) BLOOD GAS, CG4 ISTAT (05/09/2008 [...] [facility] Sample Type ARTERIAL [facility]IS[facility] shingle packer ID [id number] Test Performed by Respiratory [facility] 05/09/2008 13:1 2 EST 05/09/2008 13:30 EST Jose Alejandro Castro MD CHEMISTRY & BLOOD GAS ORDERABLE S Final Result Performing Organization Address [facility] de Phone Number [facility] [address] [place] [address] * GLUCOSE, GLUCOMETER (05/09/2008 13:08 EST) Glucose, Fingerstick 94 70 - 100 mg/dl [facility] Reference Test Clerk ID [id number] Test Performed by Nursing Services [facility] 05/09/2008 13:0 8 EST 05/09/2008 23:14 EST Jose Alejandro Castro MD CHEMISTRY & BLOOD GAS ORDERABLE S Final Result Performing Organization Address [facility] Co de Phone Number [facility] [address] [place] [address] * GLUCOSE, SERUM (05/09/2008 13:00 EST) Glucose, Serum 87 70 - 100 mg/dl [facility] 05/09/2008 13:0 0 EST 05/09/2008 13:13 EST Jose Alejandro Castro MD CHEMISTRY & BLOOD GAS ORDERABLE S Final Result Performing Organization Address [facility] Phone Number [facility] [address] [place] [address] * PHOSPHORUS (05/09/2008 13:00 EST) Phosphorus 3.2 2.7 - 4.7 mg/dl [facility] 05/09/2008 13:0 0 EST 05/09/2008 13:13 EST Jose Alejandro Castro MD CHEMISTRY & BLOOD GAS ORDERABLE S Final Result Performing Organization Address [facility] Phone Number [facility] [address] [place] [address] * MAGNESIUM (05/09/2008 13:00 EST) Magnesium 1.9 1.7 - 2.8 mg/dl [facility] 05/09/2008 13:0 0 EST 05/09/2008 13:13 EST Jose Alejandro Castro MD CHEMISTRY & BLOOD GAS ORDERABLE S Final Result Performing Organization Address [facility] Phone Number [facility] [address] [place] [address] * (ABNORMAL) ELECTROLYTES (05/09/2008 13:00 EST) Sodium [...] ORDERABLE S Final Result Performing Organization Address [facility]/ZIP Co de Phone Number [facility] [address] [place] [address] * CALCIUM IONIZED (05/09/2008 13:00 EST) Ionized Calcium Note Sample sent to Lab. [facility] 05/09/2008 13:0 0 EST 05/09/2008 13:13 EST Jose Alejandro Castro MD CHEMISTRY & BLOOD GAS ORDERABLE S Final Result Performing Organization Address [facility]/ZIP Co de Phone Number [facility] [address] [place] [address] * (ABNORMAL) GLUCOSE, GLUCOMETER (05/09/2008 11:57 EST) Glucose, Fingerstick 104(H) 70 - 100 mg/dl [facility] Reference Test Clerk ID [id number] Test Performed by Nursing Services [facility] 05/09/2008 11:5 7 EST 05/09/2008 23:14 EST Jose Alejandro Castro MD CHEMISTRY & BLOOD GAS ORDERABLE S Final Result Performing Organization Address [facility] Co de Phone Number [facility] [address] [place] [address] * (ABNORMAL) GLUCOSE, GLUCOMETER (05/09/2008 11:07 EST) Glucose, Fingerstick 128(H) 70 - 100 mg/dl [facility] Reference Test Clerk ID [id number] Test Performed by Nursing Services [facility] 05/09/2008 11:0 7 EST 05/09/2008 23:14 EST Jose Alejandro Castro MD CHEMISTRY & BLOOD GAS ORDERABLE S Final Result Performing Organization Address [facility]/ZIP Co de Phone Number [facility] [address] [place] [address] * (ABNORMAL) GLUCOSE, GLUCOMETER (05/09/2008 10:17 EST) Glucose, Fingerstick 123(H) 70 - 100 mg/dl [facility] Reference Test Clerk ID [id number] Test Performed by Nursing Services [facility] 05/09/2008 10:1 7 EST 05/09/2008 23:14 EST Jose Alejandro Castro MD CHEMISTRY & BLOOD GAS ORDERABLE S Final Result Performing Organization Address [facility] Co de Phone Number [facility] [address] [place] [address] * SODIUM, URINE RANDOM (05/09/2008 10:17 EST) Sodium, Ur 99.0 mEq/L [facility] 05/09/2008 10:1 7 EST 05/09/2008 10:27 EST Jose Alejandro Castro MD URINALYSIS ORDERABLES Final Res ult Performing Organization Address [facility] de Phone Number [facility] [address] [place] [address] * (ABNORMAL) GLUCOSE, GLUCOMETER (05/09/2008 9:10 EST) Glucose, Fingerstick 105(H) 70 - 100 mg/dl [facility] Reference Test Clerk ID [id number] Test Performed by Nursing Services [facility] 05/09/2008 9:10 EST 05/09/2008 23:14 EST Jose Alejandro Castro MD CHEMISTRY & BLOOD GAS ORDERABLE S Final Result Performing Organization Address [facility] de Phone Number [facility] [address] [place] [address] * (ABNORMAL) CALCIUM, IONIZED (05/09/2008 8:24 EST) Calcium, Ionized 1.07(L) 1.12 - 1.32 mmol/L [facility] [place] [id number] Test performed by Chemistry [facility] 05/09/2008 8:24 EST 05/09/2008 8:27 EST us Jose Alejandro Castro MD CHEMISTRY & BLOOD GAS ORDERABLE S Final Result [facility] [address] [place] [address] * (ABNORMAL) BLOOD GAS, G3 ISTAT (05/09/2008 [...] [facility] Sample Type VENOUS [facility]IS[facility] shingle packer ID [id number] Test Performed by Respiratory [facility] 05/09/2008 8:18 EST 05/09/2008 8:25 EST us Jose Alejandro Castro MD CHEMISTRY & BLOOD GAS ORDERABLE S Final Result [facility] [address] [place] [address] * (ABNORMAL) BLOOD GAS, CG4 ISTAT (05/09/2008 [...] [facility] Sample Type ARTERIAL [facility]CA[facility] shingle packer ID [id number] Test Performed by Respiratory [facility] 05/09/2008 8:08 EST 05/09/2008 8:25 EST us Jose Alejandro Castro MD CHEMISTRY & BLOOD GAS ORDERABLE S Final Result Performing Organization Address [facility] de Phone Number [facility] [address] [place] [address] * (ABNORMAL) GLUCOSE, GLUCOMETER (05/09/2008 8:05 EST) Glucose, Fingerstick 109(H) 70 - 100 mg/dl [facility] Reference Test Clerk ID [id number] Test Performed by Nursing Services [facility] 05/09/2008 8:05 EST 05/09/2008 23:14 EST us Jose Alejandro Castro MD CHEMISTRY & BLOOD GAS ORDERABLE S Final Result Performing Organization Address [facility] Phone Number [facility] [address] [place] [address] * (ABNORMAL) GLUCOSE, SERUM (05/09/2008 8:00 EST) Glucose, Serum 103(H) 70 - 100 mg/dl [facility] Comment:Heparinized plasma. 05/09/2008 8:00 EST 05/09/2008 8:19 EST us Jose Alejandro Castro MD CHEMISTRY & BLOOD GAS ORDERABLE S Final Result Performing Organization Address [facility] de Phone Number [facility] [address] [place] [address] * PHOSPHORUS (05/09/2008 8:00 EST) Phosphorus 3.2 2.7 - 4.7 mg/dl [facility] Comment:Heparinized plasma. 05/09/2008 8:00 EST 05/09/2008 8:19 EST us Jose Alejandro Castro MD CHEMISTRY & BLOOD GAS ORDERABLE S Final Result Performing Organization Address [facility] Co de Phone Number [facility] [address] [place] [address] * MAGNESIUM (05/09/2008 8:00 EST) Pathologist [facility] Magnesium 1.7 1.7 - 2.8 mg/dl [facility] Comment:Heparinized plasma. 05/09/2008 8:00 EST 05/09/2008 8:19 EST Jose Alejandro Castro MD CHEMISTRY & BLOOD GAS ORDERABLE S Final Result Performing Organization Address [facility] Phone Number [facility] [address] [place] [address] * (ABNORMAL) ELECTROLYTES (05/09/2008 8:00 EST) Pathologist [facility] Sodium 133(L) 136 - 145 mEq/L [...] ORDERABLE S Final Result Performing Organization Address [facility] Phone Number [facility] [address] [place] [address] * CALCIUM IONIZED (05/09/2008 8:00 EST) Pathologist [facility] Ionized Calcium Note Sample sent to Lab. [facility] 05/09/2008 8:00 EST 05/09/2008 8:19 EST Jose Alejandro Castro MD CHEMISTRY & BLOOD GAS ORDERABLE S Final Result Performing Organization Address [facility] de Phone Number [facility] [address] [place] [address] * PORTABLE CHEST 1 VIEW (05/09/2008 7:15 [...] 70 - 100 mg/dl [facility] Reference Test Clerk ID [id number] Test Performed by Nursing Services [facility] 05/09/2008 7:00 EST 05/09/2008 23:14 EST Jose Alejandro Castro MD CHEMISTRY & BLOOD GAS ORDERABLE S Final Result Performing Organization Address [facility] de Phone Number [facility] [address] [place] [address] * GLUCOSE, GLUCOMETER (05/09/2008 6:03 EST) Glucose, Fingerstick 78 70 - 100 mg/dl [facility] Reference Test Clerk ID [id number] Test Performed by Nursing Services [facility] 05/09/2008 6:03 EST 05/09/2008 23:14 EST Jose Alejandro Castro MD CHEMISTRY & BLOOD GAS ORDERABLE S Final Result Performing Organization Address [facility] Phone Number [facility] [address] [place] [address] * TROPONIN I (05/09/2008 5:20 EST) Troponin I pre 2012 0.73 ng/ml [facility] Comment: Reference Range: Normal: ??Less than 0.05 Indeterminate: ??0.05-0.80 Positive: ??Greater than 0.80 05/09/2008 5:20 EST 05/09/2008 5:23 EST Jose Alejandro Castro MD CHEMISTRY & BLOOD GAS ORDERABLE S Final Result Performing Organization Address [facility] de Phone Number [facility] [address] [place] [address] * (ABNORMAL) CK MB WITH TOTAL CK (05/09/2008 5:20 EST) CK 6,434 U/L [facility] MB 125.6(H) 0 - 5.0 ng/ml [facility] CK-MB Index 2.0 0 - 2.5 [facility] 05/09/2008 5:20 EST 05/09/2008 5:23 EST Jose Alejandro Castro MD CHEMISTRY & BLOOD GAS ORDERABLE S Final Result Performing Organization Address [facility] de Phone Number [facility] [address] [place] [address] * (ABNORMAL) GLUCOSE, GLUCOMETER (05/09/2008 5:00 EST) Glucose, Fingerstick 119(H) 70 - 100 mg/dl [facility] Reference Test Clerk ID [id number] Test Performed by Nursing Services [facility] 05/09/2008 5:00 EST 05/09/2008 23:14 EST Jose Alejandro Castro MD CHEMISTRY & BLOOD GAS ORDERABLE S Final Result Performing Organization Address [facility] de Phone Number [facility] [address] [place] [address] * (ABNORMAL) CALCIUM, IONIZED (05/09/2008 4:27 EST) Calcium, Ionized 1.05(L) 1.12 - 1.32 mmol/L [facility] shingle packer [place] [id number] Test performed by Chemistry [facility] 05/09/2008 4:27 EST 05/09/2008 4:31 EST Jose Alejandro Castro MD CHEMISTRY & BLOOD GAS ORDERABLE S Final Result Performing Organization Address [facility] de Phone Number [facility] [address] [place] [address] * (ABNORMAL) BLOOD GAS, G3 ISTAT (05/09/2008 [...] [facility] Sample Type VENOUS [facility] shingle packer ID [id number] Test Performed by Respiratory [facility] 05/09/2008 4:19 EST 05/09/2008 4:22 EST Jose Alejandro Castro MD CHEMISTRY & BLOOD GAS ORDERABLE S Final Result Performing Organization Address [facility] Co de Phone Number [facility] [address] [place] [address] * (ABNORMAL) BLOOD GAS, CG4 ISTAT (05/09/2008 [...] [facility] Sample Type ARTERIAL [facility]IS[facility] shingle packer ID [id number] Test Performed by Respiratory [facility] 05/09/2008 4:13 EST 05/09/2008 4:22 EST Jose Alejandro Castro MD CHEMISTRY & BLOOD GAS ORDERABLE S Final Result Performing Organization Address [facility] Co de Phone Number [facility] [address] [place] [address] * (ABNORMAL) GLUCOSE, GLUCOMETER (05/09/2008 4:10 EST) Glucose, Fingerstick 112(H) 70 - 100 mg/dl [facility] Reference Test Clerk ID [id number] Test Performed by Nursing Services [facility] 05/09/2008 4:10 EST 05/09/2008 23:14 EST Jose Alejandro Castro MD CHEMISTRY & BLOOD GAS ORDERABLE S Final Result Performing Organization Address [facility] Phone Number [facility] [address] [place] [address] * (ABNORMAL) AST (05/09/2008 4:10 EST) AST 273(H) 15 - 46 U/L [facility] Comment:Sample retested, res ult confirmed 05/09/2008 4:10 EST 05/09/2008 4:17 EST Jose Alejandro Castro MD CHEMISTRY & BLOOD GAS ORDERABLE S Final Result Performing Organization Address [facility] Phone Number [facility] [address] [place] [address] * (ABNORMAL) PTT (05/09/2008 4:10 EST) PTT 42(H) 20 - 35 secs [facility] Comment:Therapeutic Heparin range: 60-100 seconds 05/09/2008 4:10 EST 05/09/2008 4:17 EST Jose Alejandro Castro MD HEMATOLOGY & PF4 ORDERABLES Fin al Result Performing Organization Address [facility] Phone Number [facility] [address] [place] [address] * (ABNORMAL) PROTIME (05/09/2008 4:10 EST) Pro [...] ORDERABLES Fin al Result Performing Organization Address [facility] Co de Phone Number [facility] [address] [place] [address] * (ABNORMAL) GLUCOSE, SERUM (05/09/2008 4:10 EST) Glucose, Serum 101(H) 70 - 100 mg/dl [facility] 05/09/2008 4:10 EST 05/09/2008 4:17 EST Jose Alejandro Castro MD CHEMISTRY & BLOOD GAS ORDERABLE S Final Result Performing Organization Address [facility] Phone Number [facility] [address] [place] [address] * PHOSPHORUS (05/09/2008 4:10 EST) Phosphorus 3.1 2.7 - 4.7 mg/dl [facility] 05/09/2008 4:10 EST 05/09/2008 4:17 EST Jose Alejandro Castro MD CHEMISTRY & BLOOD GAS ORDERABLE S Final Result Performing Organization Address [facility] Phone Number [facility] [address] [place] [address] * MAGNESIUM (05/09/2008 4:10 EST) Magnesium 1.8 1.7 - 2.8 mg/dl [facility] 05/09/2008 4:10 EST 05/09/2008 4:17 EST Jose Alejandro Castro MD CHEMISTRY & BLOOD GAS ORDERABLE S Final Result Performing Organization Address [facility] de Phone Number [facility] [address] [place] [address] * GGT (05/09/2008 4:10 EST) GGT 34 10 - 35 U/L [facility] 05/09/2008 4:10 EST 05/09/2008 4:17 EST us Jose Alejandro Castro MD CHEMISTRY & BLOOD GAS ORDERABLE S Final Result Performing Organization Address [facility]/ZIP Co de Phone Number [facility] [address] [place] [address] * CREATININE (05/09/2008 4:10 EST) Creatinine 0.80 0.6 - 1.2 mg/dl [facility] GFR, Calculated Age <18 ml/min/1.7 3m2 [facility] 05/09/2008 4:10 EST 05/09/2008 4:17 EST us Jose Alejandro Castro MD CHEMISTRY & BLOOD GAS ORDERABLE S Final Result Performing Organization Address [facility] Co de Phone Number [facility] [address] [place] [address] * BUN (05/09/2008 4:10 EST) BUN 10 8 - 21 mg/dl [facility] 05/09/2008 4:10 EST 05/09/2008 4:17 EST us Jose Alejandro Castro MD CHEMISTRY & BLOOD GAS ORDERABLE S Final Result Performing Organization Address [facility] Co de Phone Number [facility] [address] [place] [address] * TOTAL & DIRECT BILIRUBIN (05/09/2008 4:10 EST) Conjugated Bilirubin 0.0 0.0 - 0.3 mg/dl [facility] Unconjugated Bilirubin 0.6 0.1 - 1.1 mg/dl [facility] Bilirubin, Total <0.5 0.0 - 1.4 mg/dl [facility] 05/09/2008 4:10 EST 05/09/2008 4:17 EST us Jose Alejandro Castro MD CHEMISTRY & BLOOD GAS ORDERABLE S Final Result Performing Organization Address [facility]/ZIP Co de Phone Number [facility] [address] [place] [address] * (ABNORMAL) ALT (05/09/2008 4:10 EST) ALT 89(H) 0 - 45 U/L [facility] 05/09/2008 4:10 EST 05/09/2008 4:17 EST Jose Alejandro Castro MD CHEMISTRY & BLOOD GAS ORDERABLE S Final Result Performing Organization Address [facility] de Phone Number [facility] [address] [place] [address] * (ABNORMAL) ALBUMIN (05/09/2008 4:10 EST) Pathologist [facility] Albumin 2.7(L) 3.0 - 5.5 g/dl [facility] 05/09/2008 4:10 EST 05/09/2008 4:17 EST Jose Alejandro Castro MD CHEMISTRY & BLOOD GAS ORDERABLE S Final Result Performing Organization Address [facility] de Phone Number [facility] [address] [place] [address] * (ABNORMAL) ELECTROLYTES (05/09/2008 4:10 EST) Sodium [...] ORDERABLE S Final Result Performing Organization Address [facility] Co de Phone Number [facility] [address] [place] [address] * TROPONIN I (05/09/2008 4:10 EST) [facility] Troponin I pre 2012 Sample quantity insufficient for testing. ng/ml [facility] 05/09/2008 4:10 EST 05/09/2008 4:17 EST Jose Alejandro Castro MD CHEMISTRY & BLOOD GAS ORDERABLE S Final Result Performing Organization Address [facility]/ZIP Co de Phone Number [facility] [address] [place] [address] * CK MB WITH TOTAL CK (05/09/2008 4:10 EST) [facility] CK Sample quantity insufficient for testing. U/L [facility] MB Sample quantity insufficient for testing. 0 - 5.0 ng/ml [facility] CK-MB Index Sample quantity insufficient for testing. 0 - 2.5 [facility] 05/09/2008 4:10 EST 05/09/2008 4:17 EST Jose Alejandro Castro MD CHEMISTRY & BLOOD GAS ORDERABLE S Final Result Performing Organization Address [facility] Co de Phone Number [facility] [address] [place] [address] * (ABNORMAL) HEMAGRAM AND DIFFERENTIAL (05/09/2008 4:10 EST) [facility] WBC 41.47(H) 4.6 - 11.2 K/cmm [...] Final Result Performing Organization Address [facility] de Phone Number [facility] [address] [place] [address] * CALCIUM IONIZED (05/09/2008 4:10 EST) Ionized Calcium Note Sample sent to Lab. [facility] 05/09/2008 4:10 EST 05/09/2008 4:17 EST Jose Alejandro Castro MD CHEMISTRY & BLOOD GAS ORDERABLE S Final Result Performing Organization Address [facility] Co de Phone Number [facility] [address] [place] [address] * (ABNORMAL) GLUCOSE, GLUCOMETER (05/09/2008 3:03 EST) Glucose, Fingerstick 219(H) 70 - 100 mg/dl [facility] Reference Test Clerk ID [id number] Test Performed by Nursing Services [facility] 05/09/2008 3:03 EST 05/09/2008 23:14 EST Jose Alejandro Castro MD CHEMISTRY & BLOOD GAS ORDERABLE S Final Result Performing Organization Address [facility] Co de Phone Number [facility] [address] [place] [address] * (ABNORMAL) GLUCOSE, GLUCOMETER (05/09/2008 2:04 EST) Glucose, Fingerstick 259(H) 70 - 100 mg/dl [facility] Reference Test Clerk ID [id number] Test Performed by Nursing Services [facility] 05/09/2008 2:04 EST 05/09/2008 23:14 EST Jose Alejandro Castro MD CHEMISTRY & BLOOD GAS ORDERABLE S Final Result Performing Organization Address [facility]/ZIP Co de Phone Number [facility] [address] [place] [address] * (ABNORMAL) GLUCOSE, GLUCOMETER (05/09/2008 1:11 EST) Glucose, Fingerstick 258(H) 70 - 100 mg/dl [facility] Reference Test Clerk ID [id number] Test Performed by Nursing Services [facility] 05/09/2008 1:11 EST 05/09/2008 23:14 EST us Jose Alejandro Castro MD CHEMISTRY & BLOOD GAS ORDERABLE S Final Result Performing Organization Address [facility] de Phone Number [facility] [address] [place] [address] * (ABNORMAL) BLOOD GAS, G3 ISTAT (05/09/2008 [...] [facility] Sample Type ARTERIAL ANISHA [facility] shingle packer ID [id number] Test Performed by Respiratory [facility] 05/09/2008 0:29 EST 05/09/2008 4:22 EST Jose Alejandro Castro MD CHEMISTRY & BLOOD GAS ORDERABLE S Final Result Performing Organization Address [facility] de Phone Number [facility] [address] [place] [address] * (ABNORMAL) CALCIUM, IONIZED (05/09/2008 0:28 EST) [facility] Calcium, Ionized 1.08(L) 1.12 - 1.32 mmol/L [facility] shingle [place]er [place] [id number] Test performed by Chemistry [facility] 05/09/2008 0:28 EST 05/09/2008 0:31 EST us Jose Alejandro Castro MD CHEMISTRY & BLOOD GAS ORDERABLE S Final Result Performing Organization Address [facility] de Phone Number [facility] [address] [place] [address] * (ABNORMAL) BLOOD GAS, CG4 ISTAT (05/09/2008 0:25 EST) [facility] pH, i-STAT 7.27(L) 7.35 - 7.45 [...] [facility] Sample Type ARTERIAL ANISHA [facility] shingle packer ID [id number] Test Performed by Respiratory [facility] 05/09/2008 0:25 EST 05/09/2008 4:22 EST us Jose Alejandro Castro MD CHEMISTRY & BLOOD GAS ORDERABLE S Final Result Performing Organization Address [facility] de Phone Number [facility] [address] [place] [address] * (ABNORMAL) GLUCOSE, GLUCOMETER (05/09/2008 0:17 EST) [facility] Glucose, Fingerstick 270(H) 70 - 100 mg/dl [facility] Reference Test Clerk ID [id number] Test Performed by Nursing Services [facility] 05/09/2008 0:17 EST 05/09/2008 23:14 EST Jose Alejandro Castro MD CHEMISTRY & BLOOD GAS ORDERABLE S Final Result Performing Organization Address [facility] de Phone Number [facility] [address] [place] [address] * (ABNORMAL) GLUCOSE, SERUM (05/09/2008 0:10 EST) Glucose, Serum 243(H) 70 - 100 mg/dl [facility] 05/09/2008 0:10 EST 05/09/2008 0:22 EST Jose Alejandro Castro MD CHEMISTRY & BLOOD GAS ORDERABLE S Final Result Performing Organization Address [facility] Phone Number [facility] [address] [place] [address] * PHOSPHORUS (05/09/2008 0:10 EST) Phosphorus 3.0 2.7 - 4.7 mg/dl [facility] 05/09/2008 0:10 EST 05/09/2008 0:22 EST Jose Alejandro Castro MD CHEMISTRY & BLOOD GAS ORDERABLE S Final Result Performing Organization Address [facility] de Phone Number [facility] [address] [place] [address] * (ABNORMAL) MAGNESIUM (05/09/2008 0:10 EST) Magnesium 1.5(L) 1.7 - 2.8 mg/dl [facility] 05/09/2008 0:10 EST 05/09/2008 0:22 EST Jose Alejandro Castro MD CHEMISTRY & BLOOD GAS ORDERABLE S Final Result Performing Organization Address [facility] de Phone Number [facility] [address] [place] [address] * (ABNORMAL) ELECTROLYTES (05/09/2008 0:10 EST) Sodium 138 136 - 145 mEq/L [facility] Potassium 5.6(H) 3.5 - 5.0 mEq/L [facility] Chloride 109 96 - 110 mEq/L [facility] CO2 19(L) 24 - 32 mEq/L [facility] 05/09/2008 0:10 EST 05/09/2008 0:22 EST Jose Alejandro Castro MD CHEMISTRY & BLOOD GAS ORDERABLE S Final Result Performing Organization Address [facility]/ZIP Co de Phone Number [facility] [address] [place] [address] * CALCIUM IONIZED (05/09/2008 0:10 EST) Ionized Calcium Note Sample sent to Lab. [facility] 05/09/2008 0:10 EST 05/09/2008 0:22 EST Jose Alejandro Castro MD CHEMISTRY & BLOOD GAS ORDERABLE S Final Result Performing Organization Address [facility]/ZIP Co de Phone Number [facility] [address] [place] [address] * (ABNORMAL) GLUCOSE, GLUCOMETER (05/08/2008 22:59 EST) Glucose, Fingerstick 333(H) 70 - 100 mg/dl [facility] Reference Test Clerk ID [id number] Test Performed by Nursing Services [facility] 05/08/2008 22:5 9 EST 05/08/2008 23:11 EST Jose Alejandro Castro MD CHEMISTRY & BLOOD GAS ORDERABLE S Final Result Performing Organization Address [facility]/ZIP Co de Phone Number [facility] [address] [place] [address] * (ABNORMAL) GLUCOSE, GLUCOMETER (05/08/2008 21:07 EST) Glucose, Fingerstick 345(H) 70 - 100 mg/dl [facility] Reference Test Clerk ID [id number] Test Performed by Nursing Services [facility] 05/08/2008 21:0 7 EST 05/08/2008 21:20 EST Jose Alejandro Castro MD CHEMISTRY & BLOOD GAS ORDERABLE S Final Result Performing Organization Address [facility] de Phone Number [facility] [address] [place] [address] * CALCIUM, IONIZED (05/08/2008 20:17 EST) [facility] Calcium, Ionized 1.23 1.12 - 1.32 mmol/L [facility] shingle packer ID [id number] Test performed by Chemistry [facility] 05/08/2008 20:1 7 EST 05/08/2008 20:19 EST Jose Alejandro Castro MD CHEMISTRY & BLOOD GAS ORDERABLE S Final Result Performing Organization Address [facility] de Phone Number [facility] [address] [place] [address] * (ABNORMAL) BLOOD GAS, G3 ISTAT (05/08/2008 20:08 EST) [facility] pH, i-STAT 7.25(L) 7.35 - 7.45 [facility] pCO2, i-STAT 33(L) 35 - 45 mmHg [facility] pO2, i-STAT 47(L) 85 - 100 mmHg [facility] TCO2, i-STAT 16 mEq/L [facility] O2 Saturation 78 % TRUE [facility] Base Deficit 12 [facility] Temperature 36.4 C [facility] FIO2 .40 [facility] Sample Type VENOUS [facility] shingle packer ID [id number] Test Performed by Respiratory [facility] 05/08/2008 20:0 8 EST 05/08/2008 20:15 EST us Jose Alejandro Castro MD CHEMISTRY & BLOOD GAS ORDERABLE S Final Result Performing Organization Address [facility] de Phone Number [facility] [address] [place] [address] * (ABNORMAL) GLUCOSE, GLUCOMETER (05/08/2008 20:06 EST) Glucose, Fingerstick 363(H) 70 - 100 mg/dl [facility] Reference Test Clerk ID [id number] Test Performed by Nursing Services [facility] 05/08/2008 20:0 6 EST 05/08/2008 21:19 EST Jose Alejandro Castro MD CHEMISTRY & BLOOD GAS ORDERABLE S Final Result Performing Organization Address [facility] de Phone Number [facility] [address] [place] [address] * VANCOMYCIN, RANDOM (05/08/2008 20:05 EST) Vancomycin Random 10.7 ug/ml [facility] Comment: Reference Range: Trough: 5.0-20.0 Peak: ??30.0-40.0 05/08/2008 20:0 5 EST 05/08/2008 20:11 EST Jose Alejandro Castro MD CHEMISTRY & BLOOD GAS ORDERABLE S Final Result Performing Organization Address [facility] de Phone Number [facility] [address] [place] [address] * (ABNORMAL) GLUCOSE, SERUM (05/08/2008 20:05 EST) Glucose, Serum 362(H) 70 - 100 mg/dl [facility] 05/08/2008 20:0 5 EST 05/08/2008 20:11 EST Jose Alejandro Castro MD CHEMISTRY & BLOOD GAS ORDERABLE S Final Result Performing Organization Address [facility] Co de Phone Number [facility] [address] [place] [address] * PHOSPHORUS (05/08/2008 20:05 EST) Phosphorus 2.8 2.7 - 4.7 mg/dl [facility] 05/08/2008 20:0 5 EST 05/08/2008 20:11 EST us Jose Alejandro Castro MD CHEMISTRY & BLOOD GAS ORDERABLE S Final Result Performing Organization Address [facility]/ZIP Co de Phone Number [facility] [address] [place] [address] * (ABNORMAL) MAGNESIUM (05/08/2008 20:05 EST) Magnesium 1.5(L) 1.7 - 2.8 mg/dl [facility] 05/08/2008 20:0 5 EST 05/08/2008 20:11 EST us Jose Alejandro Castro MD CHEMISTRY & BLOOD GAS ORDERABLE S Final Result Performing Organization Address [facility] de Phone Number [facility] [address] [place] [address] * CREATININE (05/08/2008 20:05 EST) Creatinine 1.10 0.6 - 1.2 mg/dl [facility] GFR, Calculated Age <18 ml/min/1.7 3m2 [facility] 05/08/2008 20:0 5 EST 05/08/2008 20:11 EST us Jose Alejandro Castro MD CHEMISTRY & BLOOD GAS ORDERABLE S Final Result Performing Organization Address [facility] Co de Phone Number [facility] [address] [place] [address] * BUN (05/08/2008 20:05 EST) BUN 14 8 - 21 mg/dl [facility] 05/08/2008 20:0 5 EST 05/08/2008 20:11 EST us Jose Alejandro Castro MD CHEMISTRY & BLOOD GAS ORDERABLE S Final Result Performing Organization Address [facility] Co de Phone Number [facility] [address] [place] [address] * (ABNORMAL) ELECTROLYTES (05/08/2008 20:05 EST) Sodium [...] ORDERABLE S Final Result Performing Organization Address [facility]/ZIP Co de Phone Number [facility] [address] [place] [address] * (ABNORMAL) HEMAGRAM (05/08/2008 20:05 EST) WBC [...] ORDERABLES Fin al Result Performing Organization Address [facility]/ZIP Co de Phone Number [facility] [address] [place] [address] * CALCIUM IONIZED (05/08/2008 20:05 EST) Ionized Calcium Note Sample sent to Lab. [facility] 05/08/2008 20:0 5 EST 05/08/2008 20:11 EST Jose Alejandro Castro MD CHEMISTRY & BLOOD GAS ORDERABLE S Final Result Performing Organization Address [facility] de Phone Number [facility] [address] [place] [address] * (ABNORMAL) BLOOD GAS, CG4 ISTAT (05/08/2008 [...] [facility] Sample Type ARTERIAL ANISHA [facility] shingle packer ID [id number] Test Performed by Respiratory [facility] 05/08/2008 20:0 2 EST 05/08/2008 20:15 EST us Jose Alejandro Castro MD CHEMISTRY & BLOOD GAS ORDERABLE S Final Result Performing Organization Address [facility] de Phone Number [facility] [address] [place] [address] * MRSA MOLECULAR DETECTION (05/08/2008 20:00 EST) Specimen Description Nares Specimen submitted on a swab [facility] Result NEGATIVE for Methicillin Resistant Staphylococcus aureus DNA by PCR. [facility] Report Status Final 05/09/2008 [facility] 05/08/2008 20:0 0 EST 05/08/2008 20:44 EST Jose Alejandro Castro MD MICROBIOLOGY - GENERAL ORDERABL ES Final Result Performing Organization Address [facility]/ZIP Co de Phone Number [facility] [address] [place] [address] * POTASSIUM (05/08/2008 19:00 EST) Potassium 4.5 3.5 - 5.0 mEq/L [facility] 05/08/2008 19:0 0 EST 05/08/2008 19:03 EST Jose Alejandro Castro MD CHEMISTRY & BLOOD GAS ORDERABLE S Final Result Performing Organization Address [facility] Co de Phone Number [facility] [address] [place] [address] * (ABNORMAL) GLUCOSE, GLUCOMETER (05/08/2008 18:13 EST) Glucose, Fingerstick 422(H) 70 - 100 mg/dl [facility] Reference Test Clerk ID [id number] Test Performed by Nursing Services [facility] 05/08/2008 18:1 3 EST 05/08/2008 21:19 EST Jose Alejandro Castro MD CHEMISTRY & BLOOD GAS ORDERABLE S Final Result Performing Organization Address [facility] de Phone Number [facility] [address] [place] [address] * (ABNORMAL) CALCIUM, IONIZED (05/08/2008 16:31 EST) Calcium, Ionized 1.37(H) 1.12 - 1.32 mmol/L [facility] shingle packer ID [id number] Test performed by Chemistry [facility] 05/08/2008 16:3 1 EST 05/08/2008 16:35 EST Jose Alejandro Castro MD CHEMISTRY & BLOOD GAS ORDERABLE S Final Result Performing Organization Address [facility] de Phone Number [facility] [address] [place] [address] * (ABNORMAL) GLUCOSE, SERUM (05/08/2008 16:27 EST) Glucose, Serum 456(H) 70 - 100 mg/dl [facility] 05/08/2008 16:2 7 EST 05/08/2008 16:27 EST us Jose Alejandro Castro MD CHEMISTRY & BLOOD GAS ORDERABLE S Final Result Performing Organization Address [facility] de Phone Number [facility] [address] [place] [address] * (ABNORMAL) PHOSPHORUS (05/08/2008 16:27 EST) Phosphorus 1.5(L) 2.7 - 4.7 mg/dl [facility] 05/08/2008 16:2 7 EST 05/08/2008 16:27 EST us Jose Alejandro Castro MD CHEMISTRY & BLOOD GAS ORDERABLE S Final Result Performing Organization Address [facility] Phone Number [facility] [address] [place] [address] * MAGNESIUM (05/08/2008 16:27 EST) Magnesium 1.8 1.7 - 2.8 mg/dl [facility] 05/08/2008 16:2 7 EST 05/08/2008 16:27 EST us Jose Alejandro Castro MD CHEMISTRY & BLOOD GAS ORDERABLE S Final Result Performing Organization Address [facility] de Phone Number [facility] [address] [place] [address] * (ABNORMAL) CREATININE (05/08/2008 16:27 EST) Creatinine 1.40(H) 0.6 - 1.2 mg/dl [facility] Comment:Sample retested, res ult confirmed GFR, Calculated Age <18 ml/min/1.7 3m2 [facility] 05/08/2008 16:2 7 EST 05/08/2008 16:27 EST us Jose Alejandro Castro MD CHEMISTRY & BLOOD GAS ORDERABLE S Final Result Performing Organization Address [facility]/ZIP Co de Phone Number [facility] [address] [place] [address] * BUN (05/08/2008 16:27 EST) BUN 16 8 - 21 mg/dl [facility] 05/08/2008 16:2 7 EST 05/08/2008 16:27 EST Jose Alejandro Castro MD CHEMISTRY & BLOOD GAS ORDERABLE S Final Result Performing Organization Address [facility] de Phone Number [facility] [address] [place] [address] * (ABNORMAL) ELECTROLYTES (05/08/2008 16:27 EST) Sodium [...] de Phone Number [facility] [address] [place] [address] * CALCIUM IONIZED (05/08/2008 16:27 EST) Ionized Calcium Note Sample sent to Lab. [facility] 05/08/2008 16:2 7 EST 05/08/2008 16:27 EST Jose Alejandro Castro MD CHEMISTRY & BLOOD GAS ORDERABLE S Final Result Performing Organization Address [facility] de Phone Number [facility] [address] [place] [address] * (ABNORMAL) BLOOD GAS, G3 ISTAT (05/08/2008 16:22 EST) pH, i-STAT 7.16(L) 7.35 - 7.45 [facility] pCO2, i-STAT 38 35 - 45 mmHg [facility] pO2, i-STAT 54(L) 85 - 100 mmHg [facility] TCO2, i-STAT 15 mEq/L [facility]MASRHAE [facility] O2 Saturation 82 % FLEMARSHA ER [facility] Base Deficit 15 FLETCHE R [facility] Temperature 35.6 C [facility] FIO2 .40 [facility] Sample Type VENOUS [facility] shingle packer [place] [id number] Test Performed by Respiratory [facility] 05/08/2008 16:2 2 EST 05/08/2008 16:30 EST Jose Alejandro Castro MD CHEMISTRY & BLOOD GAS ORDERABLE S Final Result Performing Organization Address [facility] de Phone Number [facility] [address] [place] [address] * (ABNORMAL) BLOOD GAS, CG4 ISTAT (05/08/2008 16:14 EST) [facility] pH, i-STAT 7.17(L) 7.35 - 7.45 [...] [facility] Sample Type ARTERIAL ANISHA MCFARLAND shingle packer ID [id number] Test Performed by Respiratory [facility] 05/08/2008 16:1 4 EST 05/08/2008 16:30 EST us Jose Alejandro Castro MD CHEMISTRY & BLOOD GAS ORDERABLE S Final Result Performing Organization Address [facility] de Phone Number [facility] [address] [place] [address] * (ABNORMAL) GLUCOSE, GLUCOMETER (05/08/2008 16:11 EST) Glucose, Fingerstick 456(H) 70 - 100 mg/dl [facility] Reference Test Clerk ID [id number] Test Performed by Nursing Services [facility] 05/08/2008 16:1 1 EST 05/08/2008 21:19 EST us Jose Alejandro Castro MD CHEMISTRY & BLOOD GAS ORDERABLE S Final Result Performing Organization Address City/State/[facility] Co de Phone Number [facility] [address] [place] [address] * PORTABLE CHEST 1 VIEW (05/08/2008 14:48 [...] (ABNORMAL) CALCIUM, IONIZED (05/08/2008 13:04 EST) Pathologist [facility] Calcium, Ionized 1.42(H) 1.12 - 1.32 mmol/L ANISHA [place] shingle [place] [id number] Test performed by Chemistry [facility] 05/08/2008 13:0 4 EST 05/08/2008 13:08 EST Jose Alejandro Castro MD CHEMISTRY & BLOOD GAS ORDERABLE S Final Result Performing Organization Address [facility] de Phone Number [facility] [address] [place] [address] * (ABNORMAL) PHOSPHORUS (05/08/2008 12:57 EST) [facility] Phosphorus <1.0(L) 2.7 - 4.7 mg/dl [facility] Comment:Sample retested, res ult confirmed 05/08/2008 12:5 7 EST 05/08/2008 12:57 EST Jose Alejandro Castro MD CHEMISTRY & BLOOD GAS ORDERABLE S Final Result Performing Organization Address [facility] de Phone Number [facility] [address] [place] [address] * (ABNORMAL) HEMAGRAM AND DIFFERENTIAL (05/08/2008 12:57 EST) Pathologist [facility] WBC 20.03(H) 4.6 - 11.2 K/cmm [facility] RBC 3.88(L) 4.50 - 5.30 M/cmm [facility] Hemoglobin 10.2(L) 13.0 - 16.0 gm/dl [facility] HCT 29.8(L) 37.0 - 49.0 % [facility] MCV 77(L) 78 - 98 fl [facility] MCH 26.4 pg [facility] 34.3 gm/dl [facility] PLT 141(L) 156 - 312 K/cmm [facility] RDW-CV 17.5 % [facility] [...] [facility] ABS Monocytes 0.20 K/cmm [facility] ABS Metamyelocytes 0.80 K/cmm [facility] RBC Morphology 1+ Poikilocytosis 1+ Anisocytosis 1+ Microcytes 1+ Ovalocytes [facility] Comment Rev'd by Pathologist [facility]ISHA G[facility] Type of Diff: Manual [facility] 05/08/2008 12:5 7 EST 05/08/2008 12:57 EST us Jose Alejandro Castro MD PACKAGES & DNA PROBE ORDERABLES Final Result [facility] [address] [place] [address] * (ABNORMAL) TOTAL PROTEIN (05/08/2008 12:57 EST) [facility] Total Protein 5.0(L) 6.3 - 8.6 g/dl [facility] 05/08/2008 12:5 7 EST 05/08/2008 12:57 EST Jose Alejandro Castro MD CHEMISTRY & BLOOD GAS ORDERABLE S Final Result Performing Organization Address [facility] Co de Phone Number [facility] [address] [place] [address] * (ABNORMAL) GLUCOSE, SERUM (05/08/2008 12:57 EST) Glucose, Serum 488(H) 70 - 100 mg/dl [facility] 05/08/2008 12:5 7 EST 05/08/2008 12:57 EST Jose Alejandro Castro MD CHEMISTRY & BLOOD GAS ORDERABLE S Final Result Performing Organization Address [facility] Phone Number [facility] [address] [place] [address] * (ABNORMAL) MAGNESIUM (05/08/2008 12:57 EST) Magnesium 1.4(L) 1.7 - 2.8 mg/dl [facility] 05/08/2008 12:5 7 EST 05/08/2008 12:57 EST Jose Alejandro Castro MD CHEMISTRY & BLOOD GAS ORDERABLE S Final Result Performing Organization Address [facility] Phone Number [facility] [address] [place] [address] * TOTAL & DIRECT BILIRUBIN (05/08/2008 12:57 EST) Conjugated Bilirubin 0.0 0.0 - 0.3 mg/dl [facility] Unconjugated Bilirubin 0.3 0.1 - 1.1 mg/dl [facility] Bilirubin, Total <0.5 0.0 - 1.4 mg/dl [facility] 05/08/2008 12:5 7 EST 05/08/2008 12:57 EST us Jose Alejandro Castro MD CHEMISTRY & BLOOD GAS ORDERABLE S Final Result Performing Organization Address [facility]/ZIP Co de Phone Number [facility] [address] [place] [address] * (ABNORMAL) ALBUMIN (05/08/2008 12:57 EST) Pathologist [facility] Albumin 2.7(L) 3.0 - 5.5 g/dl [facility] 05/08/2008 12:5 7 EST 05/08/2008 12:57 EST Jose Alejandro Castro MD CHEMISTRY & BLOOD GAS ORDERABLE S Final Result Performing Organization Address [facility] de Phone Number [facility] [address] [place] [address] * (ABNORMAL) ELECTROLYTES (05/08/2008 12:57 EST) [facility] Sodium 141 136 - 145 mEq/L [facility] Potassium 2.6(LL) 3.5 - 5.0 mEq/L [facility] Comment:Sample retested, res ult confirmed Chloride 110 96 - 110 mEq/L [facility] CO2 15(L) 24 - 32 mEq/L [facility] 05/08/2008 12:5 7 EST 05/08/2008 12:57 EST Jose Alejandro Castro MD CHEMISTRY & BLOOD GAS ORDERABLE S Final Result Performing Organization Address [facility] de Phone Number [facility] [address] [place] [address] * CALCIUM IONIZED (05/08/2008 12:57 EST) Pathologist [facility] Ionized Calcium Note Sample sent to Lab. [facility] 05/08/2008 12:5 7 EST 05/08/2008 12:57 EST Jose Alejandro Castro MD CHEMISTRY & BLOOD GAS ORDERABLE S Final Result Performing Organization Address [facility] Co de Phone Number [facility] [address] [place] [address] * (ABNORMAL) BLOOD GAS, G3 ISTAT (05/08/2008 12:52 EST) Pathologist [facility] pH, i-STAT 7.13(L) 7.35 - 7.45 [facility] pCO2, i-STAT 36 35 - 45 mmHg [facility] pO2, i-STAT 58(L) 85 - 100 mmHg [facility] TCO2, i-STAT 13 mEq/L FLENANCY Hoffman [facility] O2 Saturation 82 % [facility] Base Deficit 16 FLETCHE R [facility] Temperature 36.2 C [facility] Sample Type VENOUS [facility] [place] shingle packer ID [id number] Test Performed by Respiratory [facility] 05/08/2008 12:5 2 EST 05/08/2008 12:56 EST us Jose Alejandro Castro MD CHEMISTRY & BLOOD GAS ORDERABLE S Final Result Performing Organization Address [facility] de Phone Number [facility] [address] [place] [address] * (ABNORMAL) BLOOD GAS, CG4 ISTAT (05/08/2008 12:46 EST) [facility] pH, i-STAT 7.20(L) 7.35 - 7.45 [...] [facility] Sample Type ARTERIAL [facility] shingle packer ID [id number] Test Performed by Respiratory [facility] 05/08/2008 12:4 6 EST 05/08/2008 12:56 EST Jose Alejandro Castro MD CHEMISTRY & BLOOD GAS ORDERABLE S Final Result Performing Organization Address [facility] Co de Phone Number [facility] [address] [place] [address] * BACTERIAL CULTURE, BLOOD (05/08/2008 12:00 EST) Specimen Description Blood Arterial Line Pediatric bottle received Volume of blood collected may not be adequate for detection of bacteremia/se pticemia. [facility] Result No growth [facility] Report Status Final [id number] [facility] 05/08/2008 12:0 0 EST 05/08/2008 12:00 EST Jose Alejandro Castro MD MICROBIOLOGY - GENERAL ORDERABL ES Final Result Performing Organization Address [facility] de Phone Number [facility] [address] [place] [address] * BACTERIAL CULTURE, BLOOD (05/08/2008 11:59 EST) Specimen Description Blood Venous specimen. [facility] Result No growth [facility] Report Status Final [id number] [facility] 05/08/2008 11:5 9 EST 05/08/2008 11:59 EST Jose Alejandro Castro MD MICROBIOLOGY - GENERAL ORDERABL ES Final Result Performing Organization Address [facility] de Phone Number [facility] [address] [place] [address] * ECHOCARDIOGRAM (05/08/2008 10:55 EST) Anatomical Region Laterality Modality Other 05/08/2008 10:5 5 EST Narrative 11/21/2008 8:55 EDT ? ventricular dysfunction Site Location: Date of Appt: Thursday, May 08, 2008, 10:55 AM Pediatric Echocardiogram Report Demographics and Visit Data: : 1990. ??Age: 17y/10m/23d. ??BSA (m 2): 1.78. Weight (kg): 75. ??Patient location: [place] [address]. ??Weight Centile: 67.41. Person requesting test: JOSE [...] Midwall Diastolic Dimension ? 6.18 ? cm Linden's Name: YASMINE MEJIA MD Date/time of reading: [...] 2): 1.78. Weight (kg): 75. Patient location: [place] [address]. Weight Centile: 67.41. Person requesting test: JOSE [...] 2 LV Midwall Diastolic Dimension 6.18 cm Linden's Name: ROBERTO PANG,YASMINE LEIVA Date/time of reading: [...] staphylococcus coagulase positive (staphylococcus aureus) Clindamycin SUSCEPTIBILITY (TRISTNE) <=0.5 Susceptible 10,000 to 100,000 cfu/ml staphylococcus coagulase positive (staphylococcus aureus) Ciprofloxacin SUSCEPTIBILITY (TRISTEN) <=0.5 Susceptible Jose Alejandro Castro MD MICROBIOLOGY - GENERAL ORDERABL ES Final Result Performing Organization Address [facility] de Phone Number [facility] [address] [place] [address] * (ABNORMAL) BLOOD GAS, G3 ISTAT (05/08/2008 [...] LAB Sample Type NOT GIVEN [facility] [place] shingle packer ID [id number] Test Performed by Respiratory [facility] 05/08/2008 8:45 EST 05/08/2008 8:51 EST Jose Alejandro Castro MD CHEMISTRY & BLOOD GAS ORDERABLE S Final Result Performing Organization Address [facility] de Phone Number [facility] [address] [place] [address] * (ABNORMAL) BLOOD GAS, CG4 ISTAT (05/08/2008 [...] [facility] Sample Type ARTERIAL ANISHA MCF[facility] shingle packer ID [id number] Test Performed by Respiratory [facility] 05/08/2008 8:35 EST 05/08/2008 8:51 EST us Jose Alejandro Castro MD CHEMISTRY & BLOOD GAS ORDERABLE S Final Result [facility] [address] [place] [address] * ABDOMEN AP 1 VIEW (05/08/2008 8:35 [...] [facility] Sample Type ARTERIAL ANISHA MCFARLAND shingle packer ID [id number] Test Performed by Respiratory [facility] 05/08/2008 8:28 EST 05/08/2008 8:51 EST us Jose Alejandro Castro MD CHEMISTRY & BLOOD GAS ORDERABLE S Final Result Performing Organization Address [facility] de Phone Number [facility] [address] [place] [address] * (ABNORMAL) GLUCOSE, GLUCOMETER (05/08/2008 8:24 EST) Glucose, Fingerstick 173(H) 70 - 100 mg/dl [facility] Reference Test Clerk ID [id number] Test Performed by Nursing Services [facility] 05/08/2008 8:24 EST 05/08/2008 21:19 EST Jose Alejandro Castro MD CHEMISTRY & BLOOD GAS ORDERABLE S Final Result Performing Organization Address [facility] Co de Phone Number [facility] [address] [place] [address] * (ABNORMAL) BLOOD GAS, CG4 ISTAT (05/08/2008 6:56 EST) Pathologist [facility] pH, i-STAT 7.12(L) 7.35 - 7.45 [...] [facility] Sample Type VENOUS ANISHA MCF[facility] shingle packer ID [id number] Test Performed by Respiratory [facility] 05/08/2008 6:56 EST 05/08/2008 18:53 EST Jose Alejandro Castro MD CHEMISTRY & BLOOD GAS ORDERABLE S Final Result Performing Organization Address [facility] Co de Phone Number [facility] [address] [place] [address] * PTT (05/08/2008 6:50 EST) Pathologist [facility] PTT 33 20 - 35 secs [facility] Comment:Therapeutic Heparin range: 60-100 seconds 05/08/2008 6:50 EST 05/08/2008 7:00 EST Jose Alejandro Castro MD HEMATOLOGY & PF4 ORDERABLES Fin al Result Performing Organization Address [facility] de Phone Number [facility] [address] [place] [address] * (ABNORMAL) PROTIME (05/08/2008 6:50 EST) Pathologist [facility] Pro Time 16.3(H) 12.0 - 15.0 secs [facility] I.N.R. 1.3(H) 0.9 - 1.1 Ratio [facility] Comment: Moderate Intensity Coumadin INR = 2.0-3.0 Adjustments in anticoagulant therapy dose should be based upon the INR and NOT the Pro Time. 05/08/2008 6:50 EST 05/08/2008 7:00 EST Jose Alejandro Castro MD HEMATOLOGY & PF4 ORDERABLES Fin al Result Performing Organization Address [facility] Phone Number [facility] [address] [place] [address] * FIBRINOGEN (05/08/2008 6:50 EST) [facility] Fibrinogen 406 220 - 410 mg/dl [facility] 05/08/2008 6:50 EST 05/08/2008 7:00 EST Jose Alejandro Castro MD HEMATOLOGY & PF4 ORDERABLES Fin al Result Performing Organization Address [facility] Phone Number [facility] [address] [place] [address] * (ABNORMAL) D-DIMER (05/08/2008 6:50 EST) [facility] D-Dimer 1.88(H) <0.50 ug FEU/ml [facility] [...] ORDERABLES Fin al Result Performing Organization Address [facility] de Phone Number [facility] [address] [place] [address] * (ABNORMAL) HEMAGRAM AND DIFFERENTIAL (05/08/2008 6:50 EST) [facility] WBC 8.29 4.6 - 11.2 K/cmm [...] [facility] % Metamyelocytes 3.0 % [facility] Nucleated RBC's 1 /100 WBC'S [facility] ABS Neutrophils 4.40 K/cmm SHERI [facility] ABS Bands 0.33 K/cmm [facility] ABS Lymphs 2.90 K/cmm [facility] ABS Monocytes 0.41 K/cmm [facility] Metamyelocytes 0.25 K/cmm [facility] RBC Morphology 1+ Anisocytosis 1+ Poikilocytosis 1+ Microcytes 1+ Ovalocytes [facility] Platelet Morphology 1+ Clumped platelets [facility] Type of Diff: Manual [facility] 05/08/2008 6:50 EST 05/08/2008 7:00 EST us Jose Alejandro Castro MD PACKAGES & DNA PROBE ORDERABLES Final Result [facility] [address] [place] [address] * TROPONIN I (05/08/2008 6:50 EST) [facility] Troponin I pre 2011 1.34 ng/ml [facility] Comment: Reference Range: Normal: ??Less than 0.05 Indeterminate: ??0.05-0.80 Positive: ??Greater than 0.80 05/08/2008 6:50 EST 05/08/2008 13:16 EST us Jose Alejandro Castro MD CHEMISTRY & BLOOD GAS ORDERABLE S Final Result Performing Organization Address City/[facility]/ZIP Co de Phone Number [facility] [address] [place] [address] * LACTIC ACID (05/08/2008 6:50 EST) Lactic Acid 5.0 mmol/L [facility] 05/08/2008 6:50 EST 05/08/2008 13:16 EST Jose Alejandro Castro MD CHEMISTRY & BLOOD GAS ORDERABLE S Final Result Performing Organization Address [facility] Co de Phone Number [facility] [address] [place] [address] * (ABNORMAL) CK MB WITH TOTAL CK (05/08/2008 6:50 EST) CK 140 U/L [facility] MB 9.0(H) 0 - 5.0 ng/ml [facility] CK-MB Index 6.4(H) 0 - 2.5 [facility] 05/08/2008 6:50 EST 05/08/2008 13:16 EST Jose Alejandro Castro MD CHEMISTRY & BLOOD GAS ORDERABLE S Final Result Performing Organization Address City/[facility]/ZIP Co de Phone Number [facility] [address] [place] [address] * (ABNORMAL) ALT (05/08/2008 6:50 EST) ALT 55(H) 0 - 45 U/L [facility] 05/08/2008 6:50 EST 05/08/2008 13:16 EST us Jose Alejandro Castro MD CHEMISTRY & BLOOD GAS ORDERABLE S Final Result [facility] [address] [place] [address] * (ABNORMAL) AST (05/08/2008 6:50 EST) AST 51(H) 15 - 46 U/L [facility] 05/08/2008 6:50 EST 05/08/2008 13:16 EST Jose Alejandro Castro MD CHEMISTRY & BLOOD GAS ORDERABLE S Final Result Performing Organization Address [facility] de Phone Number [facility] [address] [place] [address] * (ABNORMAL) GGT (05/08/2008 6:50 EST) GGT 42(H) 10 - 35 U/L [facility] 05/08/2008 6:50 EST 05/08/2008 13:16 EST us Jose Alejandro Castro MD CHEMISTRY & BLOOD GAS ORDERABLE S Final Result Performing Organization Address [facility] de Phone Number [facility] [address] [place] [address] * (ABNORMAL) PHOSPHORUS (05/08/2008 6:50 EST) Phosphorus 1.6(L) 2.7 - 4.7 mg/dl [facility] 05/08/2008 6:50 EST 05/08/2008 13:16 EST us Jose Alejandro Castro MD CHEMISTRY & BLOOD GAS ORDERABLE S Final Result Performing Organization Address [facility] de Phone Number [facility] [address] [place] [address] * MAGNESIUM (05/08/2008 6:50 EST) Magnesium 1.7 1.7 - 2.8 mg/dl [facility] 05/08/2008 6:50 EST 05/08/2008 13:16 EST us Jose Alejandro Castro MD CHEMISTRY & BLOOD GAS ORDERABLE S Final Result Performing Organization Address [facility]/ZIP Co de Phone Number [facility] [address] [place] [address] * (ABNORMAL) GLUCOSE, SERUM (05/08/2008 6:50 EST) Glucose, Serum 66(L) 70 - 100 mg/dl [facility] 05/08/2008 6:50 EST 05/08/2008 13:16 EST us Jose Alejandro Castro MD CHEMISTRY & BLOOD GAS ORDERABLE S Final Result Performing Organization Address [facility] Co de Phone Number [facility] [address] [place] [address] * (ABNORMAL) CREATININE (05/08/2008 6:50 EST) Creatinine 2.10(H) 0.6 - 1.2 mg/dl [facility] GFR, Calculated Age <18 ml/min/1.7 3m2 [facility] 05/08/2008 6:50 EST 05/08/2008 13:16 EST Jose Alejandro Castro MD CHEMISTRY & BLOOD GAS ORDERABLE S Final Result Performing Organization Address [facility] Co de Phone Number [facility] [address] [place] [address] * (ABNORMAL) BUN (05/08/2008 6:50 EST) BUN 25(H) 8 - 21 mg/dl [facility] 05/08/2008 6:50 EST 05/08/2008 13:16 EST us Jose Alejandro Castro MD CHEMISTRY & BLOOD GAS ORDERABLE S Final Result Performing Organization Address City/[facility]/ZIP Co de Phone Number [facility] [address] [place] [address] * (ABNORMAL) ELECTROLYTES (05/08/2008 6:50 EST) Sodium [...] ORDERABLE S Final Result Performing Organization Address [facility] Co de Phone Number [facility] [address] [place] [address] * (ABNORMAL) DELTA CREATININE (05/08/2008 6:50 EST) Pathologist [facility] [place] Creatinine Elevated initial creatinine or critical change in creatinine value.(AA) [facility] 05/08/2008 6:50 EST 05/08/2008 13:16 EST Jose Alejandro Castro MD CHEMISTRY & BLOOD GAS ORDERABLE S Final Result Performing Organization Address [facility] de Phone Number [facility] [address] [place] [address] * GLUCOSE, GLUCOMETER (05/08/2008 6:31 EST) Pathologist [facility] Glucose, Fingerstick 84 70 - 100 mg/dl [facility] Reference Test Clerk ID [id number] Test Performed by Nursing Services [facility] 05/08/2008 6:31 EST 05/08/2008 21:19 EST us Jose Alejandro Castro MD CHEMISTRY & BLOOD GAS ORDERABLE S Final Result Performing Organization Address [facility] de Phone Number [facility] [address] [place] [address] documented in this encounter Visit Diagnoses Not on filedocumented in this encounter
--- OUTSIDE RECORDS SUMMARY | 2024-08-06 01:06 | XMS_ITS | Encounter Summary ---
Author Organization [facility] Address [address] [place] [address] Care Team Providers Care Leaded Glass Installer Name Role Phone Corin Skinner MD Primary Care Provider Encounter Details Date Type Department Care Team (Late st Contact Info) Description 08/13/2006 Before PRISM Converted Visit (Maple) [facility] - Maple conversion [address] [place] [address] Skyler Edwards [facility] [address] [place] [phone] Social History Tobacco Use Types Packs/Day Years Used Date Smoking Tobacco: Never Assessed Sex and Gender Information Value Date Recorded Sex Assigned at Not on file Legal Sex Male 18:35 EST Gender Identity Not on file Sexual Orientation Not on file documented as of this encounter Progress Notes * Skyler Edwards MD - 07/13/2009 0325 EST PROGRESS/FOLLOWUP NOTE - 08/13/2006 Kris Drew MD [address] [place] [address] [place] [address] 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 His foster mother, Krissy Wilson, and oracle bpm developer, Edel Jones, accompanied him to the visit. Miguel Angel is now 16 years and2 months old. Miguel Angel was discharged from [facility] in June 2006, and has been in this foster home since that time. While father reportedly still wants to take careof Miguel Angel, his house will need modifications in order to accommodate Miguel Angel's wheelchair. In the interim, he is with his new foster family indefinitely. Miguel Angel is attending [employer] for twohours per day. He receives [...] reportedly been stable since his discharge from [facility]. While she does not measure urine [...] medications. I did receive a call from [facility] in April 2006, at which time [...] exam. I have requested a repeat free [id number] with his next blood draw. He will [...] Skyler Edwards MD 08/28/2006 13:32 Lincoln Edwards, [facility] [id number] James Zimakas, MD Skyler Edwards MD Division of Pediatric Endocrinology [phone] - Von Edwards MD P - O1 Job ID: [id number] Document ID: [id number] cc: Kris Drew MD documented in this encounter Plan of Treatment Upcoming Encounters Date Type Department Care Team (Late st Contact Info) Description 10/01/2024 13:40 EDT Office Visit [facility] Endocrinology - [facility] [address] [place] [address] Wilder Zaidi, DO 62 [facility] [address] [place] [address] documented as of this encounter Visit Diagnoses Not on filedocumented in this encounter Care Teams Leaded Glass Installer Relationship Specialty Start Date End Date Corin Skinner MD [address] [place] [phone] PCP - General 10/24/08 08/21/09 documented as of this encounter
--- OUTSIDE RECORDS SUMMARY | 2024-08-06 01:06 | XMS_ITS | Encounter Summary ---
Author Organization [facility] Address [address] [place] [address] Care Team Providers Care Academic Services Coordinator Name Role Phone Yan Demarco MD Primary Care Provider [phone] Corin Skinner MD Primary Care Provider [phone] Encounter Details Date Type Department Care Team (Late st Contact Info) Description 08/13/2005 Before PRISM Converted Visit (Maple) [facility] - Maple conversion [address] [place] [address] Skyler Edwards [facility] [address] [place] [address] Social History Tobacco Use Types [...] EST August 13, 2005 Kris Drew MD [address] [place] [id number] 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 His mother, social insurance administrator and two members of his care team at [facility] accompanied him to today's visit. Miguel Angel is now 15 years and one month old. This is his first visit back to the clinic since his transfer to the [facility] in [place]. However I have been in frequent contact with his physician, Dr. Ren Read, at the [facility] to address the multiple endocrine [...] well as his nursing care at the [facility]. He still has no functional vision, has mu ltiple behavioral issues and concern regarding depression for which he is being treated. While the nursing staff is aware of the potential need for stress corticosteroid coverage he has not needed this as he has not had any significant illness since his transfer to the [facility]. I will review Miguel Angel's [...] and vitamin D intake. He should target [id number] mg of elemental calcium and 400 to 800 international units of vitamin D per day. This should be reviewed with his waste disposal plant operator at [facility]. I will adjust his DDAVP and levothyroxine if needed based on today's results. I will see Miguel Angel againin clinic in six months whether he is still at [facility] or has found a suitable foster [...] Skyler Edwards MD 08/16/2005 14:06 Lincoln Edwards, [facility] [id number] James Zimakas, MD Skyler Edwards MD Division of Pediatric Endocrinology [phone] - Skyler Edwards MD P - O1 Job ID: [id number] Document ID: [id number] cc: MD Kris Mccauley MD * [facility] [place]* documented in this encounter Plan of Treatment Upcoming Encounters Date Type Department Care Team (Late st Contact Info) Description 10/01/2024 13:40 EDT [facility] Visit [facility] End[facility]ology - [address] [address] Wilder Zaidi, DO [address] [address] documented as of this encounter Visit Diagnoses Not on filedocumented in this encounter Care Teams Academic Services Coordinator Relationship Specialty Start Date End Date Yan Demarco MD [address] [place] [address] PCP - General 08/22/09 02/20/10 Corin Skinner MD [address] [place] [phone] PCP - General 10/24/08 08/21/09 documented as of this encounter
--- OUTSIDE RECORDS SUMMARY | 2024-08-06 01:06 | XMS_ITS | Encounter Summary ---
Author Organization [facility] Address [address] [place] [address] Care Team Providers Care Furnace Charging Machine Operator Name Role Phone Corin Skinner MD Primary Care Provider [phone] Encounter Details Date Type Department Care Team (Late st Contact Info) Description 08/19/2007 Before PRISM Converted Visit (Maple) [facility] - Maple conversion [address] [place] [address] Skyler Edwards [facility] [address] [place] [phone] Social History Tobacco Use Types Packs/Day Years Used Date Smoking Tobacco: Never Assessed Sex and Gender Information Value Date Recorded Sex Assigned at Not on file Legal Sex Male 18:35 EST Gender Identity Not on file Sexual Orientation Not on file documented as of this encounter Progress Notes * Skyler Edwards MD - 05/17/2009 1424 EST PROGRESS/FOLLOWUP NOTE - Yan Demarco M.D. [facility] [address] [place] [address] [address] [place] [address] Demarco: I had the pleasure [...] stepmother, aunt, and [facility]. Miguel Angel [...] have moved to [facility], and so Miguel Angel stays with them only on the weekends and stays with his aunt on weekdays so that he may continue to attend the [email or web address]. Both aunt and stepmother, who are [...] other significant changes from previous. I contacted [facility] to obtain all of the [...] he is receiving locally and through the [facility]!. I have recommended that a referral be made to Dr. Drew Larson, our pediatric immunologist, who has seen Miguel Angel in the [...] Skyler Edwards MD Division of Pediatric Endocrinology [phone] - Skyler Edwards MD P - YASMINE Job ID: [id number] Doc ID: [id number] cc: MD Yan Mancera MD P - yasmine Job ID: [id number] Doc ID: [id number] cc: MD Yan Mancera MD documented in this encounter Plan of Treatment Upcoming Encounters Date Type Department Care Team (Late st Contact Info) Description 10/01/2024 13:40 EDT Office Visit [facility] Endocrinology - [facility] [address] [place] [address] Wilder Zaidi, 62 [facility] [address] [place] [address] documented as of this encounter Visit Diagnoses Not on filedocumented in this encounter Care Teams Furnace Charging Machine Operator Relationship Specialty Start Date End Date Corin Skinner MD [address] [place] [phone] PCP - General 10/24/08 08/21/09 documented as of this encounter
--- OUTSIDE RECORDS SUMMARY | 2024-08-06 01:06 | XMS_ITS | Encounter Summary ---
Author Organization [facility] Address [address] [place] [address] Care Team Providers Care Agile Coach Name Role Phone Yan Demarco MD Primary Care Provider [phone] Corin Skinner MD Primary Care Provider [phone] Akil Serrano MD Primary Care Provider [phone] Encounter Details Date Type Department Care Team (Late st Contact Info) Description 08/19/2007 Results Only [facility] - [facility] [address] [place], [place] [phone] [facility] [address] [place] [phone] Social History Tobacco Use Types Packs/Day Years [...] Visit [facility] Endocrinology - [facility] [address] [place] [address] Wilder Zaidi, DO [address] [facility] [address] [place] [address] documented as of this [...] EST 08/19/2007 11:20 EST Skyler Edwards [facility] CHEMISTRY & BL OOD GAS ORDERABLES Final Result Performing Organization Address City/[facility] Co de Phone Number [facility] [address] [place] [address] * LH (08/19/2007 11:15 EST) Pathologist [facility] LH <0.1 mIU/ml [facility] 08/19/2007 11:1 5 EST 08/19/2007 11:20 EST Skyler Edwards [facility] CHEMISTRY & BL OOD GAS ORDERABLES Final Result Performing Organization Address City/[facility] Co de Phone Number [facility] [address] [place] [address] * T4 FREE (08/19/2007 11:15 EST) Free T4 0.8 0.8 - 1.5 ng/dL [facility] 08/19/2007 11:1 5 EST 08/19/2007 11:20 EST Skyler Aburto Grace [facility] CHEMISTRY & BL OOD GAS ORDERABLES Final Result [facility] [address] [place] [address] * FSH (08/19/2007 11:15 EST) Pathologist [facility] FSH <0.3 mIU/ml [facility] 08/19/2007 11:1 5 EST 08/19/2007 11:20 EST Skyler Aburto Grace [facility] CHEMISTRY & BL OOD GAS ORDERABLES Final Result Performing Organization Address [facility] Co de Phone Number [facility] [address] [place] [address] * (ABNORMAL) COMPREHENSIVE METABOLIC PANEL (08/19/2007 11:15 EST) Pathologist [facility] Potassium 3.7 3.5 - 5.0 mEq/L [facility] [...] EST 08/19/2007 11:20 EST Skyler Edwards [facility] CHEMISTRY & BL OOD GAS ORDERABLES Final Result [facility] [address] [place] [address] documented in this encounter Visit Diagnoses Not on filedocumented in this encounter Care Teams Agile Coach Relationship Specialty Start Date End Date Yan Demarco MD [address] [place] [address] PCP - General 08/22/09 02/20/10 Corin Skinner MD [address] [place] [phone] PCP - General 10/24/08 08/21/09 Akil Serrano MD [address] [facility] [address] [place] [address] PCP - General 02/21/10 04/16/11 documented as of this encounter
--- OUTSIDE RECORDS SUMMARY | 2024-08-06 01:06 | XMS_ITS | Encounter Summary ---
Author Organization [facility] Address [address] [place] [address] Care Team Providers Care Realty Loan Specialist Name Role Phone Yan Demarco MD Primary Care Provider [phone] Corin Skinner MD Primary Care Provider Akil Serrano MD Primary Care Provider [phone] Encounter Details Date Type Department Care Team (Late st Contact Info) Description 11/27/2007 Results Only [facility] - Maple conversion [address] [place], [place] [address] Emergency, MD Diya Social History Tobacco Use [...] Office Visit [facility] Endocrinology - [facility] [address] [place], [place] [id number] Wilder Zaidi, 62 [facility] [address] [place] [address] documented as [...] ORDER LYNDSEY Final Result Performing Organization Address [facility] Co de Phone Number [facility] [address] [place] [address] * (ABNORMAL) ELECTROLYTES (11/27/2007 18:20 EDT) Sodium [...] de Phone Number [facility] [address] [place] [address] * T4 FREE (11/27/2007 18:20 EDT) [facility] Free T4 0.9 0.8 - 1.5 ng/dL [facility] 11/27/2007 18:2 0 EDT 11/27/2007 18:51 EDT Default Emergency MD CHEMISTRY & BLOOD GAS ORDER LYNDSEY Final Result Performing Organization Address City/[facility]/ZIP Co de Phone Number [facility] [address] [place] [address] * CREATININE (11/27/2007 18:20 EDT) [facility] Creatinine 0.60 0.6 - 1.2 mg/dl [facility] GFR, Calculated Age <18 ml/min/1.7 3m2 [facility] 11/27/2007 18:2 0 EDT 11/27/2007 18:51 EDT us Default Emergency MD CHEMISTRY & BLOOD GAS ORDER LYNDSEY Final Result Performing Organization Address City/[facility] Co de Phone Number [facility] [address] [place] [address] * (ABNORMAL) HEMAGRAM AND DIFFERENTIAL (11/27/2007 18:20 EDT) [facility] WBC 4.74 4.6 - 11.2 K/cmm [...] de Phone Number [facility] [address] [place] [address] * BUN (11/27/2007 18:20 EDT) BUN 9 8 - 21 mg/dl [facility] 11/27/2007 18:2 0 EDT 11/27/2007 18:51 EDT us Default Emergency MD CHEMISTRY & BLOOD GAS ORDER LYNDSEY Final Result Performing Organization Address [facility]/ZIP Co de Phone Number [facility] [address] [place] [address] * TESTS ADDED BY PHONE (11/27/2007 18:20 EDT) Tests to be added STAT SGL [facility] Who Called [facility] Location Code Emergency Department [facility] 11/27/2007 18:2 0 EDT 11/27/2007 18:51 EDT us Default Emergency MD CHEMISTRY & BLOOD GAS ORDER LYNDSEY Final Result Performing Organization Address [facility] Co de Phone Number [facility] [address] [place] [address] * TESTS ADDED BY PHONE (11/27/2007 18:20 EDT) Tests to be added FT4 [facility] Who Called [facility] Location Code Emergency Department [facility] 11/27/2007 18:2 0 EDT 11/27/2007 18:51 EDT us Default Emergency CHEMISTRY & BLOOD GAS ORDER LYNDSEY Final Result [facility] [address] [place] [address] documented in this encounter Visit Diagnoses Not on filedocumented in this encounter Care Teams Realty Loan Specialist Relationship Specialty Start Date End Date Yan Demarco MD [address] [place] [address] PCP - General 08/22/09 02/20/10 Corin Skinner MD [address] [place] [phone] PCP - General 10/24/08 08/21/09 Akil Serrano MD [address] [place] [address],[facility] [address] [place] [address] PCP - General 02/21/10 04/16/11 documented as of this encounter
--- OUTSIDE RECORDS SUMMARY | 2024-08-06 01:06 | XMS_ITS | Encounter Summary ---
Author Organization [facility] Address [address] [place] [address] Care Team Providers Care Multi Share Program Coordinator Name Role Phone Unavailable Primary Care Provider Unavailabl e Encounter Details Date Type Department Care Team (Late st Contact Info) Description 02/06/2006 11:26 EDT Hospital Encounter [facility] [address] [place] [address] [facility] [address] [place] [phone] Social History Tobacco Use Types Packs/Day Years [...] Office Visit [facility] Endocrinology - [facility] [address] [place] [address] Wilder Zaidi, DO 62 [facility] [address] [place] [address] documented as of this encounter Visit Diagnoses Not on filedocumented in this encounter
--- OUTSIDE RECORDS SUMMARY | 2024-08-06 01:06 | XMS_ITS | Encounter Summary ---
Author Organization [facility] Address [address] [place] [address] Care Team Providers Care Swift Tender Name Role Phone Unavailable Primary Care Provider Unavailabl e Encounter Details Date Type Department Care Team (Late st Contact Info) Description 02/09/2008 2:41 EDT - 02/12/2008 11:59 EDT Hospital Encounter [facility] [address] [place] [address] Jodi Christie MD [address] [facility], [address] [place] [id number] Yossi Murphy MD [address] [facility], [address] [place] [address] Discharge Disposition: Another Health Care Institution Not [...] 01/13/2009 1403 EDT HISS DISCHARGE SUMMARY ADDRESS: [address] [place] [address] PHONE: [phone] ATTENDING PHYSICIAN: JODI CHRISTIE MD ADDRESS: [address] [address] PHONE: [phone] REFERRING PHYSICIAN: YAN GOEL MD ADDRESS: [address] [place] [address] PHONE: [phone] ADMISSION DATE: 02/09/08 SERVICE: PED. MEDICINE TRANSFER [...] STOPPED: NONE HERBAL REMEDIES, NUTRITIONAL SUPPLEMENTS, AND ZXYZ-STS-[id number] MEDICATIONS that have not been prescribed by a physician may have significant adverse side effect or may interfere with the medications that have been prescribed for you. If you are taking herbal remedies, nutritional supplements, or tgua-lel-qrwdpyj medications you are strongly encouraged to discontinue [...] of panhypopituitarism who came to [facility] ER on 02/09/08 due to altered mental status. One week prior the patient had been seen at the [facility] ER following some seizure like activity [...] 02/08 he was taken to [facility] where he had a Temperature of 31, [...] continued to express interest in transfer to [place] and transport was arranged. He was transferred to [facility] on 02/12/08 by [facility]. Recommendations from Endocrinology 02/11 were to decrease [...] in mental status cc: Patient chart MD YNA TRINIDAD MD END OF REPORT D: JESSIKA RIVERA MD P - ZOHDocument ID: [id number] documented in this encounter Discharge Disposition Disposition [...] panhypopituitarism, who presentedon February 09, 2008, to [facility] ER with severe hyponatremia and [...] DISPOSITION Miguel Angel will be transferred to [place] [address] today. His family wishes to seek transfer to [facility], and those investigations are occurring at the time of transfer. CONDITION AT DISCHARGE Stable. Supervising Physician Signed by Otilio Castro MD 02/09/2008 15:43 Wilder Bejarano MD Otilio Castro MD - Wilder Bejarano MD P - CSS Job ID: [id number] Document ID: [id number] cc: MD Otilio Alcantar MD Daniel W [...] the parents have insisted on transfer to [facility]; arrival of transport is expected imminently. I would recommend that he continue on a relatively modest dose of Jabrph115 mg b.i.d., in part because of his [...] Cheng MD P - SS Job ID: [id number] Document ID: [id number] cc: MD Yan Walker MD Christa M Zehle, MD * Lc Cheng MD - 02/11/2008 0000 EDT INPATIENT CONSULTATION Admission Date: 02/09/2008 Date of consultation: 02/11/2008 This is an inpatient pediatric neurologic follow-up consultation/reconsultation on this [id number] left hemiparesis, panhypopituitarism, craniopharyngioma resection, new onset [...] Lc Cheng MD P - Job ID: [id number] Document ID: [id number] cc: MD Yan Walker MD Christa M [...] treatment for that including CT at a [facility] hospital, was started on phenytoin. Since that time, he has had some decreased responsivenessand balance (phenytoin 100 mg t.i.d.). He came in because of mental status change and has been hospitalized here for the last three days and had correction of what was found to be hyponatremia and shinto of his usual DDAVP regime along with [...] his step-mother. His step-mother is his principle bar helper. There is no family history of epilepsy. [...] Cheng MD A - SADE Job ID: [id number] Document ID: [id number] cc: MD Rui Walker III, MD Daniel W Larrow, MD Christa M Zehle, MD documented in this encounter Plan of Treatment Upcoming Encounters Date Type Department Care Team (Late st Contact Info) Description 10/01/2024 13:40 EDT Office Visit [facility] Endocrinology - [address] [id number] Wilder Zaidi, [address] [facility] [address] [place] [address] documented as of this encounter [...] S Final Result [facility] [address] [place] [address] * (ABNORMAL) BLOOD GAS, G3 ISTAT (02/12/2008 [...] LAB Sample Type NOT GIVEN [facility] [place] [place] [id number] Test performed by Chemistry [facility] 02/12/2008 10:4 5 EDT 02/12/2008 10:50 EDT us Jodi Christie MD CHEMISTRY & BLOOD GAS ORDERABLE S Final Result Performing Organization Address [facility] de Phone Number [facility] [address] [place] [address] * (ABNORMAL) GLUCOSE, GLUCOMETER (02/12/2008 10:05 EDT) Glucose, Fingerstick 125(H) 70 - 100 mg/dl [facility] Commanding [employer] [place] [id number] Test Performed by Nursing Services [facility] 02/12/2008 10:0 5 EDT 02/13/2008 3:40 EDT us Jodi Christie MD CHEMISTRY & BLOOD GAS ORDERABLE S Final Result Performing Organization Address [facility] de Phone Number [facility] [address] [place] [address] * (ABNORMAL) BLOOD GAS, G3 ISTAT (02/12/2008 [...] LAB Sample Type NOT GIVEN [facility] [place] [id number] Test performed by Chemistry [facility] 02/12/2008 8:58 EDT 02/12/2008 9:03 EDT us Jodi Christie MD CHEMISTRY & BLOOD GAS ORDERABLE S Final Result Performing Organization Address [facility] de Phone Number [facility] [address] [place] [address] * (ABNORMAL) GLUCOSE, GLUCOMETER (02/12/2008 8:51 EDT) Glucose, Fingerstick 130(H) 70 - 100 mg/dl [facility] Commanding Officer [place] [id number] Test Performed by Nursing Services [facility] 02/12/2008 8:51 EDT 02/13/2008 3:29 EDT us Jodi Christie MD CHEMISTRY & BLOOD GAS ORDERABLE S Final Result Performing Organization Address [facility]/ZIP Co de Phone Number [facility] [address] [place] [address] * (ABNORMAL) PHOSPHORUS (02/12/2008 8:35 EDT) Phosphorus 5.6(H) 2.7 - 4.7 mg/dl [facility] Comment: Results may be affected due to hemolysis. Slight hemolysis 02/12/2008 8:35 EDT 02/12/2008 8:48 EDT us Jodi Christie MD CHEMISTRY & BLOOD GAS ORDERABLE S Final Result Performing Organization Address [facility] Co de Phone Number [facility] [address] [place] [address] * MAGNESIUM (02/12/2008 8:35 EDT) Magnesium 2.1 1.7 - 2.8 mg/dl [facility] Comment: Results may be affected due to hemolysis. Slight hemolysis 02/12/2008 8:35 EDT 02/12/2008 8:48 EDT Jodi Christie MD CHEMISTRY & BLOOD GAS ORDERABLE S Final Result Performing Organization Address [facility] Co de Phone Number [facility] [address] [place] [address] * CALCIUM (02/12/2008 8:35 EDT) Calcium 9.2 8.5 - 10.5 mg/dl [facility] Comment:Slight hemolysis Calculated Calcium 8.8 8.5 - 10.5 mg/dl [facility] Comment: Results may be affected due to hemolysis. Slight hemolysis 02/12/2008 8:35 EDT 02/12/2008 8:48 EDT Jodi Christie MD CHEMISTRY & BLOOD GAS ORDERABLE S Final Result Performing Organization Address [facility] de Phone Number [facility] [address] [place] [address] * (ABNORMAL) GLUCOSE, GLUCOMETER (02/12/2008 8:17 EDT) Glucose, Fingerstick 53(L) 70 - 100 mg/dl [facility] Commanding Officer [place] [id number] Test Performed by Nursing Services [facility] 02/12/2008 8:17 EDT 02/13/2008 3:29 EDT Jodi Christie MD CHEMISTRY & BLOOD GAS ORDERABLE S Final Result Performing Organization Address [facility] de Phone Number [facility] [address] [place] [address] * CREATININE (02/12/2008 5:55 EDT) Creatinine 1.10 0.6 - 1.2 mg/dl [facility] Comment:Heparinized plasma. GFR, Calculated Age <18 Heparinize d plasma. ml/min/1.7 3m2 [facility] 02/12/2008 5:55 EDT 02/12/2008 6:21 EDT Jodi Christie MD CHEMISTRY & BLOOD GAS ORDERABLE S Final Result Performing Organization Address [facility] de Phone Number [facility] [address] [place] [address] * BUN (02/12/2008 5:55 EDT) BUN 15 8 - 21 mg/dl [facility] Comment:Heparinized plasma. 02/12/2008 5:55 EDT 02/12/2008 6:21 EDT us Jodi Christie MD CHEMISTRY & BLOOD GAS ORDERABLE S Final Result Performing Organization Address [facility] de Phone Number [facility] [address] [place] [address] * TESTS ADDED BY PHONE (02/12/2008 5:55 EDT) Tests to be added B[facility] Who Called [facility] Location Code B5 [facility] 02/12/2008 5:55 EDT 02/12/2008 6:21 EDT us Jodi Christie MD CHEMISTRY & BLOOD GAS ORDERABLE S Final Result Performing Organization Address [facility] de Phone Number [facility] [address] [place] [address] * (ABNORMAL) ELECTROLYTES (02/12/2008 5:55 EDT) Sodium [...] Performing Organization Address [facility] de Phone Number [facility] [address] [place] [address] * CORTISOL (02/12/2008 2:05 EDT) Cortisol Wrong tube/speci men type ug/dl [facility] Comment:CANNOT BE RUN ON GRE EN MICROTAINER 02/12/2008 2:05 EDT 02/12/2008 2:17 EDT us Jodi Christie MD CHEMISTRY & BLOOD GAS ORDERABLE S Final Result Performing Organization Address [facility] de Phone Number [facility] [address] [place] [address] * TESTS ADDED BY PHONE (02/12/2008 2:05 EDT) Tests to be added [facility] Who Called [facility] Location Code B5 [facility] 02/12/2008 2:05 EDT 02/12/2008 2:17 EDT us Jodi Christie MD CHEMISTRY & BLOOD GAS ORDERABLE S Final Result Performing Organization Address [facility] Phone Number [facility] [address] [place] [address] * (ABNORMAL) ELECTROLYTES (02/12/2008 2:05 EDT) Sodium [...] Phone Number [facility] [address] [place] [address] * (ABNORMAL) BLOOD GAS, G3 ISTAT (02/11/2008 [...] LAB Sample Type NOT GIVEN [facility] [place] [id number] Test performed by Chemistry [facility] 02/11/2008 22:1 5 EDT 02/11/2008 22:20 EDT us Jodi Christie MD CHEMISTRY & BLOOD GAS ORDERABLE S Final Result Performing Organization Address [facility] de Phone Number [facility] [address] [place] [address] * (ABNORMAL) ELECTROLYTES (02/11/2008 21:50 EDT) Sodium 149(H) 136 - 145 mEq/L [facility] Potassium 4.4 3.5 - 5.0 mEq/L [facility] Chloride 108 96 - 110 mEq/L [facility] CO2 29 24 - 32 mEq/L [facility] 02/11/2008 21:5 0 EDT 02/11/2008 22:07 EDT us Jodi Christie MD CHEMISTRY & BLOOD GAS ORDERABLE S Final Result Performing Organization Address [facility] de Phone Number [facility] [address] [place] [address] * MR HEAD W/WO CONTRAST (02/11/2008 20:14 [...] Performing Organization Address [facility] de Phone Number [facility] [address] [place] [address] * UA REFLEX (02/11/2008 19:10 EDT) UA Billing Microscopic not indicated. [facility] 02/11/2008 19:1 0 EDT 02/11/2008 19:21 EDT Jodi Christie MD URINALYSIS ORDERABLES Final Res ult Performing Organization Address [facility] de Phone Number [facility] [address] [place] [address] * (ABNORMAL) URINALYSIS, CHEMICAL (02/11/2008 19:10 EDT) Color, UA Straw [facility] Clarity, UA Clear [facility] Glucose, UA Norm NORM [facility] Bilirubin, UA Neg NEG [facility] Ketones, UA Neg NEG [facility] Specific [place], Urine <1.005(L) 1.005 - 1.02 [facility] [...] de Phone Number [facility] [address] [place] [address] * (ABNORMAL) BLOOD GAS, G3 ISTAT (02/11/2008 [...] LAB Sample Type NOT GIVEN [facility] [place] [id number] Test performed by Chemistry [facility] 02/11/2008 18:4 5 EDT 02/11/2008 18:50 EDT us Jodi Christie MD CHEMISTRY & BLOOD GAS ORDERABLE S Final Result Performing Organization Address [facility] de Phone Number [facility] [address] [place] [address] * CT HEAD WO CONTRAST (02/11/2008 18:44 [...] Performing Organization Address [facility] de Phone Number [facility] [address] [place] [address] * CO2 (02/11/2008 18:12 EDT) CO2 25 24 - 32 mEq/L [facility] 02/11/2008 18:1 2 EDT 02/11/2008 18:40 EDT Jodi Christie MD CHEMISTRY & BLOOD GAS ORDERABLE S Final Result Performing Organization Address [facility] de Phone Number [facility] [address] [place] [address] * CHLORIDE (02/11/2008 18:12 EDT) Chloride 107 96 - 110 mEq/L [facility] 02/11/2008 18:1 2 EDT 02/11/2008 18:40 EDT Jodi Christie MD CHEMISTRY & BLOOD GAS ORDERABLE S Final Result Performing Organization Address [facility] de Phone Number [facility] [address] [place] [address] * (ABNORMAL) SODIUM (02/11/2008 18:12 EDT) Sodium 148(H) 136 - 145 mEq/L [facility] 02/11/2008 18:1 2 EDT 02/11/2008 18:40 EDT Jodi Christie MD CHEMISTRY & BLOOD GAS ORDERABLE S Final Result Performing Organization Address [facility]/ZIP Co de Phone Number [facility] [address] [place] [address] * CREATININE (02/11/2008 18:12 EDT) Pathologist [facility] Creatinine 0.90 0.6 - 1.2 mg/dl [facility] GFR, Calculated Age <18 ml/min/1.7 3m2 [facility] 02/11/2008 18:1 2 EDT 02/11/2008 18:40 EDT us Jodi Christie MD CHEMISTRY & BLOOD GAS ORDERABLE S Final Result Performing Organization Address [facility] de Phone Number [facility] [address] [place] [address] * BUN (02/11/2008 18:12 EDT) [facility] BUN 13 8 - 21 mg/dl [facility] 02/11/2008 18:1 2 EDT 02/11/2008 18:40 EDT us Jodi Christie MD CHEMISTRY & BLOOD GAS ORDERABLE S Final Result Performing Organization Address [facility] de Phone Number [facility] [address] [place] [address] * TESTS ADDED BY PHONE (02/11/2008 18:12 EDT) [facility] Tests to be added LYT STAT [facility] Who Called DR CATHY [facility] Location Code B5 [facility] 02/11/2008 18:1 2 EDT 02/11/2008 18:40 EDT us Jodi Christie MD CHEMISTRY & BLOOD GAS ORDERABLE S Final Result Performing Organization Address [facility] Co de Phone Number [facility] [address] [place] [address] * (ABNORMAL) AMMONIA (02/11/2008 18:12 EDT) Ammonia 40(H) 9 - 33 umol/L [facility] 02/11/2008 18:1 2 EDT 02/11/2008 18:40 EDT Jodi Christie MD CHEMISTRY & BLOOD GAS ORDERABLE S Final Result Performing Organization Address [facility] de Phone Number [facility] [address] [place] [address] * DIFFERENTIAL (02/11/2008 15:28 EDT) Neutrophils 55.0 [...] al Result Performing Organization Address [facility] Co de Phone Number [facility] [address] [place] [address] * TOTAL & DIRECT BILIRUBIN (02/11/2008 15:28 EDT) Conjugated Bilirubin 0.0 0.0 - 0.3 mg/dl [facility] Unconjugated Bilirubin 0.3 0.1 - 1.1 mg/dl [facility] Bilirubin, Total <0.5 0.0 - 1.4 mg/dl [facility] 02/11/2008 15:2 8 EDT 02/11/2008 15:39 EDT Jodi Christie MD CHEMISTRY & BLOOD GAS ORDERABLE S Final Result [facility] [address] [place] [address] * AST (02/11/2008 15:28 EDT) AST 42 15 - 46 U/L [facility] 02/11/2008 15:2 8 EDT 02/11/2008 15:39 EDT us Jodi hCristie MD CHEMISTRY & BLOOD GAS ORDERABLE S Final Result Performing Organization Address City/[facility]/ZIP Co de Phone Number [facility] [address] [place] [address] * ALT (02/11/2008 15:28 EDT) ALT <11 0 - 45 U/L [facility] 02/11/2008 15:2 8 EDT 02/11/2008 15:39 EDT us Jodi Christie MD CHEMISTRY & BLOOD GAS ORDERABLE S Final Result Performing Organization Address [facility]/ZIP Co de Phone Number [facility] [address] [place] [address] * ALKALINE PHOSPHATASE (02/11/2008 15:28 EDT) Alkaline Phosphatase 179 65 - 260 U/L [facility] 02/11/2008 15:2 8 EDT 02/11/2008 15:39 EDT us Jodi Christie MD CHEMISTRY & BLOOD GAS ORDERABLE S Final Result [facility] [address] [place] [address] * TESTS ADDED BY PHONE (02/11/2008 15:28 EDT) Tests to be added STAT ALT,AST,TDBI L,ALKP [facility] Who Called DR CATHY [facility] Location Code B5 [facility] 02/11/2008 15:2 8 EDT 02/11/2008 15:39 EDT us Jodi Christie MD CHEMISTRY & BLOOD GAS ORDERABLE S Final Result Performing Organization Address City/[facility] Co de Phone Number [facility] [address] [place] [address] * (ABNORMAL) HEMAGRAM (02/11/2008 15:28 EDT) WBC [...] al Result Performing Organization Address [facility] de Phone Number [facility] [address] [place] [address] * (ABNORMAL) PHOSPHORUS (02/11/2008 15:28 EDT) Phosphorus 4.9(H) 2.7 - 4.7 mg/dl [facility] 02/11/2008 15:2 8 EDT 02/11/2008 15:39 EDT us Jodi Christie MD CHEMISTRY & BLOOD GAS ORDERABLE S Final Result Performing Organization Address [facility] Co de Phone Number [facility] [address] [place] [address] * MAGNESIUM (02/11/2008 15:28 EDT) Magnesium 2.0 1.7 - 2.8 mg/dl [facility] 02/11/2008 15:2 8 EDT 02/11/2008 15:39 EDT Jodi Christie MD CHEMISTRY & BLOOD GAS ORDERABLE S Final Result Performing Organization Address [facility] de Phone Number [facility] [address] [place] [address] * CALCIUM (02/11/2008 15:28 EDT) Calcium 9.1 8.5 - 10.5 mg/dl [facility] Calculated Calcium 9.0 8.5 - 10.5 mg/dl [facility] 02/11/2008 15:2 8 EDT 02/11/2008 15:39 EDT Jodi Christie MD CHEMISTRY & BLOOD GAS ORDERABLE S Final Result Performing Organization Address [facility] de Phone Number [facility] [address] [place] [address] * (ABNORMAL) ELECTROLYTES (02/11/2008 15:28 EDT) Sodium [...] Performing Organization Address [facility] de Phone Number [facility] [address] [place] [address] * GLUCOSE, GLUCOMETER (02/11/2008 15:22 EDT) Glucose, Fingerstick 81 70 - 100 mg/dl [facility] Commanding Officer [place] ID [id number] Test Performed by Nursing Services [facility] 02/11/2008 15:2 2 EDT 02/12/2008 1:19 EDT Jodi Christie MD CHEMISTRY & BLOOD GAS ORDERABLE S Final Result Performing Organization Address [facility] Co de Phone Number [facility] [address] [place] [address] * ELECTROLYTES (02/11/2008 6:00 EDT) Sodium 142 [...] de Phone Number [facility] [address] [place] [address] * ELECTROLYTES (02/11/2008 2:05 EDT) Sodium 140 [...] Performing Organization Address [facility] de Phone Number [facility] [address] [place] [address] * (ABNORMAL) ELECTROLYTES (02/10/2008 21:55 EDT) Sodium [...] Performing Organization Address [facility] de Phone Number [facility] [address] [place] [address] * ELECTROLYTES (02/10/2008 18:15 EDT) Sodium 139 [...] Phone Number [facility] [address] [place] [address] * ELECTROLYTES (02/10/2008 14:00 EDT) Sodium 136 [...] Performing Organization Address [facility] de Phone Number [facility] [address] [place] [address] * (ABNORMAL) ELECTROLYTES (02/10/2008 10:12 EDT) Sodium [...] Performing Organization Address [facility] Co de Phone Number [facility] [address] [place] [address] * GLUCOSE, GLUCOMETER (02/10/2008 8:13 EDT) Glucose, Fingerstick 74 70 - 100 mg/dl [facility] Commanding Officer [place]age ID [id number] Test Performed by Nursing Services [facility] 02/10/2008 8:13 EDT 02/10/2008 9:15 EDT Jodi Christie MD CHEMISTRY & BLOOD GAS ORDERABLE S Final Result Performing Organization Address [facility] Co de Phone Number [facility] [address] [place] [address] * ELECTROLYTES (02/10/2008 8:05 EDT) Sodium Marked [...] Performing Organization Address [facility] de Phone Number [facility] [address] [place] [address] * (ABNORMAL) ELECTROLYTES (02/10/2008 4:00 EDT) Sodium [...] de Phone Number [facility] [address] [place] [address] * (ABNORMAL) ELECTROLYTES (02/09/2008 23:15 EDT) Sodium [...] Performing Organization Address [facility] de Phone Number [facility] [address] [place] [address] * BACTERIAL CULTURE, URINE (02/09/2008 21:15 EDT) Specimen Description Urine [facility] Result No growth [facility] Report Status Final [id number] [facility] 02/09/2008 21:1 5 EDT 02/09/2008 22:47 EDT Jodi Christie MD MICROBIOLOGY - GENERAL ORDERABL ES Final Result Performing Organization Address [facility] de Phone Number [facility] [address] [place] [address] * CULTURE IF UA POSITIVE (02/09/2008 21:15 EDT) Culture if Indicated Culture indicated by urinalysis results. [facility] 02/09/2008 21:1 5 EDT 02/09/2008 22:00 EDT us Jodi Christie MD MICROBIOLOGY - GENERAL ORDERABL ES Final Result Performing Organization Address [facility] de Phone Number [facility] [address] [place] [address] * (ABNORMAL) ELECTROLYTES (02/09/2008 21:15 EDT) Sodium [...] Phone Number [facility] [address] [place] [address] * (ABNORMAL) UA WITH MICROSCOPIC (02/09/2008 21:15 EDT) Color, UA Straw [facility] Clarity, UA Hazy [facility] Glucose, UA 1+(A) NORM [facility] Bilirubin, UA Neg NEG [facility] Ketones, UA Neg NEG [facility] Specific [place], Urine <1.005(L) 1.005 - 1.02 [facility] [...] Res ult Performing Organization Address [facility] de Phone Number [facility] [address] [place] [address] * (ABNORMAL) ELECTROLYTES (02/09/2008 18:05 EDT) Sodium [...] Performing Organization Address [facility] Co de Phone Number [facility] [address] [place] [address] * GLUCOSE, GLUCOMETER (02/09/2008 17:59 EDT) Glucose, Fingerstick 98 70 - 100 mg/dl [facility] [employer] [place] [id number] Test Performed by Nursing Services [facility] 02/09/2008 17:5 9 EDT 02/09/2008 23:28 EDT us Jodi Christie MD CHEMISTRY & BLOOD GAS ORDERABLE S Final Result Performing Organization Address [facility] de Phone Number [facility] [address] [place] [address] * (ABNORMAL) ELECTROLYTES (02/09/2008 16:10 EDT) Sodium [...] de Phone Number [facility] [address] [place] [address] * (ABNORMAL) GLUCOSE, GLUCOMETER (02/09/2008 16:06 EDT) Glucose, Fingerstick 105(H) 70 - 100 mg/dl [facility] Commanding Officer [place] ID [id number] Test Performed by Nursing Services [facility] 02/09/2008 16:0 6 EDT 02/09/2008 23:28 EDT us Jodi Christie MD CHEMISTRY & BLOOD GAS ORDERABLE S Final Result Performing Organization Address [facility] de Phone Number [facility] [address] [place] [address] * (ABNORMAL) ELECTROLYTES (02/09/2008 14:09 EDT) Sodium 121(LL) 136 - 145 mEq/L [facility] Comment:Sample retested, res ult confirmed Potassium 4.6 3.5 - 5.0 mEq/L [facility] Chloride 85(L) 96 - 110 mEq/L [facility] CO2 25 24 - 32 mEq/L [facility] 02/09/2008 14:0 9 EDT 02/09/2008 14:09 EDT us Kris Izquierdo MD CHEMISTRY & BLOOD GAS ORDERABLE S Final Result Performing Organization Address [facility] Co de Phone Number [facility] [address] [place] [address] * (ABNORMAL) GLUCOSE, GLUCOMETER (02/09/2008 14:01 EDT) Glucose, Fingerstick 104(H) 70 - 100 mg/dl [facility] Commanding Officer [place] [id number] Test Performed by Nursing Services [facility] 02/09/2008 14:0 1 EDT 02/09/2008 23:28 EDT us Jodi Christie MD CHEMISTRY & BLOOD GAS ORDERABLE S Final Result Performing Organization Address [facility] Co de Phone Number [facility] [address] [place] [address] * OSMOLALITY, URINE (02/09/2008 13:37 EDT) Osmolality, Ur 406 MOS/KG [facility] 02/09/2008 13:3 7 EDT 02/09/2008 13:37 EDT us Kris Izquierdo MD URINALYSIS ORDERABLES Final Res ult Performing Organization Address [facility] Co de Phone Number [facility] [address] [place] [address] * SODIUM, URINE RANDOM (02/09/2008 13:37 EDT) Sodium, Ur 91.0 mEq/L [facility] 02/09/2008 13:3 7 EDT 02/09/2008 13:37 EDT Kris Izquierdo MD URINALYSIS ORDERABLES Final Res ult Performing Organization Address [facility] Co de Phone Number [facility] [address] [place] [address] * (ABNORMAL) URINALYSIS, CHEMICAL (02/09/2008 13:37 EDT) Color, UA Straw [facility] Clarity, UA Hazy [facility] Glucose, UA Norm NORM [facility] Bilirubin, UA Neg NEG [facility] Ketones, UA Neg NEG [facility] Specific [place], Urine 1.015 1.005 - 1.02 [facility] [...] Res ult Performing Organization Address [facility] Co de Phone Number [facility] [address] [place] [address] * URINE MICROSCOPIC (02/09/2008 13:37 EDT) WBC, [...] Res ult Performing Organization Address [facility] Co de Phone Number [facility] [address] [place] [address] * (ABNORMAL) T4 FREE (02/09/2008 12:06 EDT) Free T4 0.6(L) 0.8 - 1.5 ng/dL [facility] 02/09/2008 12:0 6 EDT 02/09/2008 12:06 EDT us Kris Izquierdo MD CHEMISTRY & BLOOD GAS ORDERABLE S Final Result Performing Organization Address [facility] Co de Phone Number [facility] [address] [place] [address] * TESTS ADDED BY PHONE (02/09/2008 12:06 EDT) Pathologist [facility] Tests to be added FT4 [facility] Who Called KAYLI FOR DR TONIE [facility] Location Code M3 [facility] 02/09/2008 12:0 6 EDT 02/09/2008 12:06 EDT us Kris Izquierdo MD CHEMISTRY & BLOOD GAS ORDERABLE S Final Result Performing Organization Address [facility] de Phone Number [facility] [address] [place] [address] * (ABNORMAL) ELECTROLYTES (02/09/2008 12:06 EDT) Sodium [...] Performing Organization Address [facility] de Phone Number [facility] [address] [place] [address] * (ABNORMAL) GLUCOSE, GLUCOMETER (02/09/2008 11:59 EDT) Glucose, Fingerstick 102(H) 70 - 100 mg/dl [facility] Commanding Officer [employer] ID [id number] Test Performed by Nursing Services [facility] 02/09/2008 11:5 9 EDT 02/09/2008 23:28 EDT us Jodi Christie MD CHEMISTRY & BLOOD GAS ORDERABLE S Final Result Performing Organization Address [facility] de Phone Number [facility] [address] [place] [address] * GLUCOSE, GLUCOMETER (02/09/2008 10:09 EDT) Glucose, Fingerstick 82 70 - 100 mg/dl [facility] Commanding Officer [place] ID [id number] Test Performed by Nursing Services [facility] 02/09/2008 10:0 9 EDT 02/09/2008 23:28 EDT us Jodi Christie MD CHEMISTRY & BLOOD GAS ORDERABLE S Final Result Performing Organization Address [facility] de Phone Number [facility] [address] [place] [address] * (ABNORMAL) ELECTROLYTES (02/09/2008 9:49 EDT) Sodium [...] Performing Organization Address [facility] Co de Phone Number [facility] [address] [place] [address] * (ABNORMAL) ELECTROLYTES (02/09/2008 8:09 EDT) Sodium [...] Performing Organization Address [facility] de Phone Number [facility] [address] [place] [address] * GLUCOSE, GLUCOMETER (02/09/2008 8:08 EDT) Glucose, Fingerstick 85 70 - 100 mg/dl [facility] Commanding Officer [place] [id number] Test Performed by Nursing Services [facility] 02/09/2008 8:08 EDT 02/09/2008 23:28 EDT us Jodi Christie MD CHEMISTRY & BLOOD GAS ORDERABLE S Final Result Performing Organization Address [facility] Co de Phone Number [facility] [address] [place] [address] * (ABNORMAL) BLOOD GAS, G3 ISTAT (02/09/2008 [...] [facility] Sample Type VENOUS [facility] [employer] [place] [id number] Test Performed by Respiratory [facility] 02/09/2008 8:08 EDT 02/09/2008 8:13 EDT us Kris Izquierdo MD CHEMISTRY & BLOOD GAS ORDERABLE S Final Result Performing Organization Address [facility] Co de Phone Number [facility] [address] [place] [address] * (ABNORMAL) ELECTROLYTES (02/09/2008 6:55 EDT) Sodium [...] ORDERABLE S Final Result Performing Organization Address City/[facility] Co de Phone Number [facility] [address] [place] [address] * (ABNORMAL) BLOOD GAS, G3 ISTAT (02/09/2008 [...] LAB Sample Type NOT GIVEN [facility] [place] [id number] Test performed by Chemistry [facility] 02/09/2008 5:35 EDT 02/09/2008 5:43 EDT us Kris Izquierdo MD CHEMISTRY & BLOOD GAS ORDERABLE S Final Result Performing Organization Address City/[facility]/ZIP Co de Phone Number [facility] [address] [place] [address] * MRSA MOLECULAR DETECTION (02/09/2008 5:18 EDT) Specimen Description Nasal [facility] Result NEGATIVE for Methicillin Resistant Staphylococcus aureus DNA by PCR. [facility] Report Status Final [id number] [facility] 02/09/2008 5:18 EDT 02/09/2008 7:21 EDT Kris Izquierdo MD MICROBIOLOGY - GENERAL ORDERABL ES Final Result Performing Organization Address [facility] Co de Phone Number [facility] [address] [place] [address] * GLUCOSE, SERUM (02/09/2008 5:15 EDT) Glucose, Serum 76 70 - 100 mg/dl [facility] 02/09/2008 5:15 EDT 02/09/2008 5:22 EDT us Kris Izquierdo MD CHEMISTRY & BLOOD GAS ORDERABLE S Final Result Performing Organization Address City/[facility] Co de Phone Number [facility] [address] [place] [address] * (ABNORMAL) CREATININE (02/09/2008 5:15 EDT) Creatinine 0.57(L) 0.6 - 1.2 mg/dl [facility] GFR, Calculated Age <18 ml/min/1.7 3m2 [facility] 02/09/2008 5:15 EDT 02/09/2008 5:22 EDT Kris Izquierdo MD CHEMISTRY & BLOOD GAS ORDERABLE S Final Result Performing Organization Address City/[facility]/ZIP Co de Phone Number [facility] [address] [place] [address] * (ABNORMAL) BUN (02/09/2008 5:15 EDT) BUN 7(L) 8 - 21 mg/dl [facility] 02/09/2008 5:15 EDT 02/09/2008 5:22 EDT us Kris Izquierdo MD CHEMISTRY & BLOOD GAS ORDERABLE S Final Result Performing Organization Address [facility] de Phone Number [facility] [address] [place] [address] * PHOSPHORUS (02/09/2008 5:15 EDT) Phosphorus 3.3 2.7 - 4.7 mg/dl [facility] 02/09/2008 5:15 EDT 02/09/2008 5:22 EDT Kris Izquierdo MD CHEMISTRY & BLOOD GAS ORDERABLE S Final Result Performing Organization Address City/[facility] Co de Phone Number [facility] [address] [place] [address] * (ABNORMAL) MAGNESIUM (02/09/2008 5:15 EDT) Magnesium 1.6(L) 1.7 - 2.8 mg/dl [facility] 02/09/2008 5:15 EDT 02/09/2008 5:22 EDT Kris Izquierdo MD CHEMISTRY & BLOOD GAS ORDERABLE S Final Result Performing Organization Address City/[facility]/ZIP Co de Phone Number [facility] [address] [place] [address] * (ABNORMAL) ELECTROLYTES (02/09/2008 5:15 EDT) Sodium [...] Performing Organization Address [facility] Co de Phone Number [facility] [address] [place] [address] * CULTURE IF UA POSITIVE (02/09/2008 5:15 EDT) Culture if Indicated Culture not indicated by urinalysis results. [facility] 02/09/2008 5:15 EDT 02/09/2008 5:24 EDT Kris Izquierdo MD MICROBIOLOGY - GENERAL ORDERABL ES Final Result Performing Organization Address [facility] de Phone Number [facility] [address] [place] [address] * UA REFLEX (02/09/2008 5:15 EDT) UA Billing Microscopic not indicated. [facility] 02/09/2008 5:15 EDT 02/09/2008 5:24 EDT Kris Izquierdo MD URINALYSIS ORDERABLES Final Res ult Performing Organization Address [facility] Co de Phone Number [facility] [address] [place] [address] * (ABNORMAL) URINALYSIS, CHEMICAL (02/09/2008 5:15 EDT) Color, UA Yellow [facility] Clarity, UA Clear [facility] Glucose, UA Norm NORM [facility] Bilirubin, UA Neg NEG [facility] Ketones, UA Neg NEG [facility] Specific [place], Urine >1.030(H) 1.005 - 1.02 [facility] [...] Res ult Performing Organization Address [facility] Co de Phone Number [facility] [address] [place] [address] * GLUCOSE, GLUCOMETER (02/09/2008 0:01 EDT) Glucose, Fingerstick 96 70 - 100 mg/dl [facility] [employer]ing Officer [place] [place] [id number] Test Performed by Nursing Services [facility] 02/09/2008 0:01 EDT 02/09/2008 19:26 EDT us Jodi Christie MD CHEMISTRY & BLOOD GAS ORDERABLE S Final Result Performing Organization Address City/[facility] Co de Phone Number [facility] [address] [place] [address] documented in this encounter Visit Diagnoses Not on filedocumented in this encounter
--- OUTSIDE RECORDS SUMMARY | 2024-08-06 01:06 | XMS_ITS | Encounter Summary ---
Author Organization Health system Address [address] [place] [address] Care Team Providers Care Station Installer And Repairer Name Role Phone Unavailable Primary Care Provider Unavailabl e Encounter Details Date Type Department Care Team (Late st Contact Info) Description 11/27/2007 19:42 EDT - 11/30/2007 11:59 EDT Hospital Encounter [facility] Unit [address], [place] [id number] Florida Enriquez MD MSc [address] [place] [address] Neo Benitez MD [address] [place] [phone] Discharge Disposition: Home or Self Care [...] Jose Lopez MD,PHD ABPN Certified in Neurology [place] Board Clinical Neurophysiology - Jose Lopez MD,PHD P - LBR Job ID: [id number] Document ID: [id number] cc: Yossi Garcia MD,PhD Jose Lopez MD,PHD P - lbr Job ID: [id number] Document ID: [id number] cc: Yossi Garcia MD,PhD documented in this [...] impairment. He was admitted to [facility] on November 27, 2007, from an outside hospital with mental status changes and hyponatremia, which has since been corrected. Following his surgery, he has been left with cognitive deficits and has spent considerable time in rehabilitation and is followed by Dr. Feliciano at [facility] for behavioral problems. After talking with his [...] alternate taking care of him. He attends [employer] in [place], [place]. His biological mother two years ago [...] morning to get prepared to go to [employer], his school for the day, and so [...] limited due to his cognitivedeficits. 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 [place] II: Deferred. 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, diabetes [...] Harris MD A - SS Job ID: [id number] Document ID: [id number] cc: MD Yan Cleveland MD Alisson L Richards, MD Jillian Sullivan, MD Jillian Sullivan, MD documented in this encounter Plan of Treatment Upcoming Encounters Date Type Department Care Team (Late st Contact Info) Description 10/01/2024 13:40 EDT Office Visit [facility] Endocrinology - [address] [address] Wilder Zaidi, DO [address] [place] [address] [address] [place] [address] documented as of this encounter [...] GAS ORDERABLES Final Result Performing Organization Address [facility] de Phone Number [facility] [address] [place] [address] * GLUCOSE, GLUCOMETER (11/30/2007 6:14 EDT) Glucose, Fingerstick 70 70 - 100 mg/dl [facility] Nurse Staff Industrial [place] [id number] Test Performed by Nursing Services [facility] 11/30/2007 6:14 EDT 11/30/2007 23:34 EDT Florida Enriquez MD MSc CHEMISTRY & BLOOD GAS ORDERABLES Final Result Performing Organization Address City/[facility] Co de Phone Number [facility] [address] [place] [address] * SODIUM (11/30/2007 6:00 EDT) Sodium 139 136 - 145 mEq/L [facility] 11/30/2007 6:00 EDT 11/30/2007 7:15 EDT us Florida Enriquez MD MSc CHEMISTRY & BLOOD GAS ORDERABLES Final Result Performing Organization Address City/[facility] Co de Phone Number [facility] [address] [place] [address] * GLUCOSE, SERUM (11/29/2007 18:00 EDT) Glucose, Serum 78 70 - 100 mg/dl [facility] 11/29/2007 18:0 0 EDT 11/29/2007 19:03 EDT us Florida Enriquez MD MSc CHEMISTRY & BLOOD GAS ORDERABLES Final Result Performing Organization Address [facility] de Phone Number [facility] [address] [place] [address] * SODIUM (11/29/2007 18:00 EDT) Sodium 139 136 - 145 mEq/L [facility] 11/29/2007 18:0 0 EDT 11/29/2007 19:03 EDT Florida Enriquez MD MSc CHEMISTRY & BLOOD GAS ORDERABLES Final Result Performing Organization Address [facility] de Phone Number [facility] [address] [place] [address] * GLUCOSE, SERUM (11/29/2007 8:36 EDT) Glucose, Serum 78 70 - 100 mg/dl [facility] 11/29/2007 8:36 EDT 11/29/2007 8:42 EDT us Florida Enriquez MD MSc CHEMISTRY & BLOOD GAS ORDERABLES Final Result Performing Organization Address [facility] de Phone Number [facility] [address] [place] [address] * SODIUM (11/29/2007 8:36 EDT) Sodium 144 136 - 145 mEq/L [facility] 11/29/2007 8:36 EDT 11/29/2007 8:42 EDT Florida Enriquez MD MSc CHEMISTRY & BLOOD GAS ORDERABLES Final Result Performing Organization Address City/[facility]/ZIP Co de Phone Number [facility] [address] [place] [address] * GLUCOSE, SERUM (11/29/2007 3:22 EDT) Glucose, Serum 87 70 - 100 mg/dl [facility] 11/29/2007 3:22 EDT 11/29/2007 3:27 EDT Florida Enriquez MD MSc CHEMISTRY & BLOOD GAS ORDERABLES Final Result Performing Organization Address [facility] Co de Phone Number [facility] [address] [place] [address] * SODIUM (11/29/2007 3:22 EDT) Sodium 141 136 - 145 mEq/L [facility] 11/29/2007 3:22 EDT 11/29/2007 3:27 EDT Florida Enriquez MD MSc CHEMISTRY & BLOOD GAS ORDERABLES Final Result Performing Organization Address [facility] Co de Phone Number [facility] [address] [place] [address] * (ABNORMAL) GLUCOSE, SERUM (11/29/2007 0:23 EDT) Glucose, Serum 101(H) 70 - 100 mg/dl [facility] 11/29/2007 0:23 EDT 11/29/2007 0:23 EDT Florida Enriquez MD MSc CHEMISTRY & BLOOD GAS ORDERABLES Final Result Performing Organization Address [facility] de Phone Number [facility] [address] [place] [address] * SODIUM (11/29/2007 0:23 EDT) Sodium 142 136 - 145 mEq/L [facility] 11/29/2007 0:23 EDT 11/29/2007 0:23 EDT Florida Enriquez MD MSc CHEMISTRY & BLOOD GAS ORDERABLES Final Result Performing Organization Address [facility] Co de Phone Number [facility] [address] [place] [address] * SODIUM (11/28/2007 16:00 EDT) Sodium 143 136 - 145 mEq/L [facility] 11/28/2007 16:0 0 EDT 11/28/2007 21:30 EDT Florida Enriquez MD MSc CHEMISTRY & BLOOD GAS ORDERABLES Final Result Performing Organization Address [facility] Phone Number [facility] [address] [place] [address] * GLUCOSE, SERUM (11/28/2007 12:00 EDT) Glucose, Serum 73 70 - 100 mg/dl [facility] 11/28/2007 12:0 0 EDT 11/28/2007 12:12 EDT Florida Enriquez MD MSc CHEMISTRY & BLOOD GAS ORDERABLES Final Result Performing Organization Address [facility] Phone Number [facility] [address] [place] [address] * PHOSPHORUS (11/28/2007 12:00 EDT) Phosphorus 4.6 2.7 - 4.7 mg/dl [facility] 11/28/2007 12:0 0 EDT 11/28/2007 12:12 EDT Florida Enriquez MD MSc CHEMISTRY & BLOOD GAS ORDERABLES Final Result Performing Organization Address [facility] de Phone Number [facility] [address] [place] [address] * MAGNESIUM (11/28/2007 12:00 EDT) Magnesium 1.9 1.7 - 2.8 mg/dl [facility] 11/28/2007 12:0 0 EDT 11/28/2007 12:12 EDT Florida Enriquez MD MSc CHEMISTRY & BLOOD GAS ORDERABLES Final Result Performing Organization Address [facility] de Phone Number [facility] [address] [place] [address] * ELECTROLYTES (11/28/2007 12:00 EDT) Pathologist Christiana [...] GAS ORDERABLES Final Result Performing Organization Address [facility] de Phone Number [facility] [address] [place] [address] * (ABNORMAL) HEMAGRAM AND DIFFERENTIAL (11/28/2007 12:00 [...] BE ORDERABLES Final Result Performing Organization Address [facility] Co de Phone Number [facility] [address] [place] [address] * CALCIUM (11/28/2007 12:00 EDT) Calcium 9.4 8.5 - 10.5 mg/dl [facility] Calculated Calcium 9.1 8.5 - 10.5 mg/dl [facility] 11/28/2007 12:0 0 EDT 11/28/2007 12:12 EDT Florida Enriquez MD MSc CHEMISTRY & BLOOD GAS ORDERABLES Final Result Performing Organization Address [facility] de Phone Number [facility] [address] [place] [address] * TESTS ADDED BY PHONE (11/28/2007 12:00 EDT) Tests to be added NA [facility] Who Called JANE LEW FOR DR. SHAKIR [facility] Location Code B5 [facility] 11/28/2007 12:0 0 EDT 11/28/2007 12:12 EDT Florida Enriquez MD MSc CHEMISTRY & BLOOD GAS ORDERABLES Final Result Performing Organization Address [facility] de Phone Number [facility] [address] [place] [address] * SODIUM (11/28/2007 8:15 EDT) Sodium 138 136 - 145 mEq/L [facility] 11/28/2007 8:15 EDT 11/28/2007 8:52 EDT us Florida Enriquez MD MSc CHEMISTRY & BLOOD GAS ORDERABLES Final Result Performing Organization Address [facility] Phone Number [facility] [address] [place] [address] * GLUCOSE, SERUM (11/28/2007 4:15 EDT) Glucose, Serum 79 70 - 100 mg/dl [facility] 11/28/2007 4:15 EDT 11/28/2007 4:22 EDT Florida Enriquez MD MSc CHEMISTRY & BLOOD GAS ORDERABLES Final Result Performing Organization Address [facility] Phone Number [facility] [address] [place] [address] * (ABNORMAL) SODIUM (11/28/2007 4:15 EDT) Sodium 135(L) 136 - 145 mEq/L [facility] 11/28/2007 4:15 EDT 11/28/2007 4:22 EDT us Florida Enriquez MD MSc CHEMISTRY & BLOOD GAS ORDERABLES Final Result Performing Organization Address [facility] Phone Number [facility] [address] [place] [address] * CT HEAD WO CONTRAST (11/28/2007 2:42 [...] GAS ORDERABLES Final Result Performing Organization Address [facility] de Phone Number [facility] [address] [place] [address] * GLUCOSE, GLUCOMETER (11/27/2007 23:47 EDT) Glucose, Fingerstick 80 70 - 100 mg/dl [facility] Nurse Staff Industrial ID [id number] Test Performed by Nursing Services [facility] 11/27/2007 23:4 7 EDT 11/27/2007 23:48 EDT Florida Enriquez MD, MSc CHEMISTRY & BLOOD GAS ORDERABLES Final Result Performing Organization Address [facility] de Phone Number [facility] [address] [place] [address] * (ABNORMAL) GLUCOSE, GLUCOMETER (11/27/2007 18:32 EDT) Glucose, Fingerstick 52(L) 70 - 100 mg/dl [facility] Nurse Staff Industrial ID [id number] Test Performed by Nursing Services [facility] 11/27/2007 18:3 2 EDT 11/27/2007 23:48 EDT Florida Enriquez MD MSc CHEMISTRY & BLOOD GAS ORDERABLES Final Result Performing Organization Address [facility] de Phone Number [facility] [address] [place] [address] documented in this encounter Visit Diagnoses Not on filedocumented in this encounter
--- OUTSIDE RECORDS SUMMARY | 2024-08-06 01:06 | XMS_ITS | Encounter Summary ---
Author Organization [facility] Address [address] [place] [address] Care Team Providers Care Computer Operator Name Role Phone Corin Skinner MD Primary Care Provider [phone] Encounter Details Date Type Department Care Team (Late st Contact Info) Description 02/06/2006 Before PRISM Converted Visit ([place]) [facility] - [place] conversion [address] [place] [address] Skyler Edwards [facility] [address] [place] [phone] Social History Tobacco Use Types Packs/Day Years [...] 02/06/2006 February 06, 2006 Kris Drew MD [address] [place] [id number] 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 Members of his nursing team, his care transport nurse, and his father accompanied him to the [...] take Miguel Angel homewith him to the [place] area. Father lives with his new and several other children. He is in the process of preparing his home for Miguel Angel's return which will likely occur in the next month. Miguel Angel currently remains at the [facility]. Based on review of notes provided by [...] testing when he moves back to the [place] area. His caregivers had questions regarding the [...] 22:09 Lincoln Edwards [facility] [phone] James Zimakas, MD Skyler Edwards MD Division of Pediatric Endocrinology [phone] - Skyler Edwards MD A - O2 Job ID: [id number] Document ID: [id number] cc: MD Kris Mccauley MD *Solitario Ramos MD, [facility], [address] [place] [address]* documented in this encounter Plan of Treatment Upcoming Encounters Date Type Department Care Team (Late st Contact Info) Description 10/01/2024 13:40 EDT Office Visit [facility] Endocrinology - [facility] [address] [place], [place] [phone] Wilder Zaidi, 62 [facility] [address] [place] [phone] documented as of this encounter Visit Diagnoses Not on filedocumented in this encounter Care Teams Computer Operator Relationship Specialty Start Date End Date Corin Skinner MD [address] [place] [phone] PCP - General 10/24/08 08/21/09 documented as of this encounter
--- OUTSIDE RECORDS SUMMARY | 2024-08-06 01:06 | XMS_ITS | Encounter Summary ---
Author Organization [facility] Address [address] [place] [address] Care Team Providers Care Concrete Craftsman Name Role Phone Unavailable Primary Care Provider Unavailabl e Encounter Details Date Type Department Care Team (Late st Contact Info) Description 08/19/2007 9:10 EST Hospital Encounter [facility] [address] [place] [address] [facility] [address] [place] [phone] Social History Tobacco Use Types Packs/Day Years [...] Office Visit [facility] Endocrinology - [facility] [address] [place] [address] Wilder Zaidi, DO [address] [facility] [address] [place] [address] documented as of this encounter Visit Diagnoses Not on filedocumented in this encounter
--- OUTSIDE RECORDS SUMMARY | 2024-08-06 01:06 | XMS_ITS | Encounter Summary ---
Author Organization [facility] Address [address] [place] [address] Care Team Providers Care Decontamination Technician Name Role Phone Unavailable Primary Care Provider Unavailabl e Encounter Details Date Type Department Care Team (Latest Contact Info) Description 05/15/2007 6:45 EST - 05/15/2007 11:59 EST Hospital Encounter [facility] Perioperative Services- [facility] [address] [place], [place] [address] Marvin Perez MD [address] [place] [phone] Discharge Disposition: Home or Self Care Social [...] [facility] Endocrinology - [facility] [address] [place] [address] Wilder Zaidi, 62 [facility] [address] [place] [address] documented as of this [...]
--- OUTSIDE RECORDS SUMMARY | 2024-08-06 01:06 | XMS_ITS | Encounter Summary ---
Author Organization [facility] Address [address] [place] [address] Care Team Providers Care Accounts Specialist Name Role Phone Yan Demarco MD Primary Care Provider Corin Skinner MD Primary Care Provider [phone] Encounter Details Date Type Department Care Team (Late st Contact Info) Description 02/08/2008 Office Visit [facility] - [place] conversion [address] [place] [address] Yossi Murphy MD [address] [facility] [address] [place] [address] Social History Tobacco Use Types [...] At pt's family's request, PICU attending at [facility] notified. PICU attending agreed with plan [...] endocrine), peds resident, PICU attending physician at [facility]. Reviewed test results. Agreed upon treatment [...] qd, calcium, vitamin d, niacin 1000mg tid, [id number] hs, hydrocortisone 5mg -2tabs am, 1 tab [...] --2237 Bryant Baker R.N.. NURSING PROGRESS NOTES (otr owner operator truck driver at bedside.). --2236 Bryant Baker [...] Manuel Bejarano R.N.. IV / I&O Flowsheet 0206 late entry -. IV Site #1. IV access: left hand. IV started in ED with 20g angiocath using aseptic technique; one attempt. Saline lock placed; (iv started and blood drawn by otr owner operator truck driver.). --0033 Bryant Baker R.N. IV Site #1. IV fluids started. IV bag #1; 300 mL bolus 3% NaClat 100 mL/hr. --022 Manuel Bejarano R.N.. DISPOSITION / DISCHARGE (Transported to on elevated guard by this RN and turned over to care of M3 nursing staff.). --0453 Manuel Bejarano R.N.. Clara Chung R.N., R.N. Locked/Released at 02/09/2008 7:29 by Manuel Bejarano R.N. documented in this encounter Plan of Treatment Upcoming Encounters Date Type Department Care Team (Late st Contact Info) Description 10/01/2024 13:40 EDT Office Visit [facility] Endocrinology - [facility] [address] [place] [address] Wilder Zaidi, 62 [facility] [address] [place] [address] documented as of this encounter Visit Diagnoses Not on filedocumented in this encounter Care Teams Accounts Specialist Relationship Specialty Start Date End Date Yan Demarco MD [address] [place] [address] PCP - General 08/22/09 02/20/10 Corin Skinner MD [address] [place] [phone] PCP - General 10/24/08 08/21/09 documented as of this encounter
--- OUTSIDE RECORDS SUMMARY | 2024-08-06 01:06 | XMS_ITS | Encounter Summary ---
Author Organization [facility] Address [address] [place] [address] Care Team Providers Care Heat Treat Inspector Name Role Phone Yan Demarco MD Primary Care Provider [phone] Corin Skinner MD Primary Care Provider [phone] Akil Serrano MD Primary Care Provider [phone] Yossi Torres MD Primary Care Provider [phone] Emilee Cody MD Primary Care Provider + Ren Vaz MD Primary Care Provider [phone] Encounter Details Date Type Department Care Team (Late st Contact Info) Description 08/13/2005 Before PRISM Converted Visit ([facility]le) [facility] Pediatric Neurology - [facility] [address] [place], [place] [phone] Hilton Álvarez MD [address] [place] [phone] Social History Tobacco Use Types Packs/Day Years Used Date Smoking Tobacco: Never Assessed Sex and Gender Information Value Date Recorded Sex Assigned at Not on file Legal Sex Male 18:35 EST Gender Identity Not on file Sexual Orientation Not on file documented as of this encounter Progress Notes * Ricki, Conv Printing Roller Polisher - 09/06/20092034 EST DIVISION OF NEUROSURGERY PROGRESS/FOLLOWUP NOTE August 13, 2005 Kris Drew MD [address] [place] [address] [place] [address] Drew: I had the pleasure of following up Miguel Angel Burgos in the pediatric neurosurgery clinic today with hismother, the case management social worker from your institution, and two of his care attendants at [facility]. Since I saw Miguel Angel last, [...] Hilton Álvarez MD 08/20/2005 13:44 Carolina Tang ProfessorNortheastern [place] Regional HospitalDivision of Neurological SurgeryHilton Álvarez MD Hilton Álvarez MD Film Booker [facility] Division of Neurological Surgery - Hilton Álvarez MD P - bb Job ID: [id number] Document ID: [id number] cc: Kris Drew MD documented in this encounter Plan of Treatment Upcoming Encounters Date Type Department Care Team (Late st Contact Info) Description 10/01/2024 13:40 EDT Office Visit [facility] Endocrinology - [place] [address] [facility] [address] Wilder Zaidi, DO [address] [facility] [address] [place] [address] documented as of this encounter Procedures Procedure Name Priority Date/Time Associated Diagnosis Comments MR HEAD W/WO CONTRAST 08/13/2005 13:23 EST documented in this encounter Results * MR HEAD W/WO CONTRAST (08/13/2005 13:23 EST) Anatomical Region Laterality Modality Other 08/13/2005 13:2 3 EST Narrative 02/03/2009 5:03 EDT PATIENT NEEDS TO BE SENT TO [facility] FOR [facility]EST[facility], S/P CRANIOPHOYRGRAM RESECTION [...] 02/03/2009 PATIENT NEEDS TO BE SENT TO [facility] FOR ANESTHESIA HEADACHES, S/P CRANIOPHOYRGRAM RESECTION [...] filedocumented in this encounter Care Teams Heat Treat Inspector Relationship Specialty Start Date End Date Yan Demarco MD [address] [place] [address] PCP - General 08/22/09 02/20/10 Corin Skinner MD [address] [place] [phone] PCP - General 10/24/08 08/21/09 Akil Serrano MD [address] [place] [phone] PCP - General 02/21/10 04/16/11 Yossi Torres MD [address] [place] [phone] PCP - General 04/17/11 03/14/16 Emilee Cody MD [address] [place] [phone] PCP - General 03/15/16 09/29/18 Ren Vaz MD [address] [place] [address] [place] [address] PCP - General 09/30/18 documented as of this encounter
--- OUTSIDE RECORDS SUMMARY | 2024-08-06 01:06 | XMS_ITS | Encounter Summary ---
Author Organization [facility] Address [address] [place] [address] Care Team Providers Care Clinical Biochemical Geneticist Name Role Phone Corin Skinner MD Primary Care Provider [phone] Encounter Details Date Type Department Care Team (Late st Contact Info) Description 05/23/2006 Before PRISM Converted Visit ([place]le) [facility] - [place] conversion [address] [place] [address] Marvin Perez MD [address] [place] [phone] Social History Tobacco Use Types Packs/Day [...] 05/23/2006 May 23, 2006 Kris Drew MD [address] [place] [phone] Drew: Miguel Angel Burgos was [...] an [place] a half south of [place], [place] and this is quite a trip for him to make. He and his family would like to considereither going to [place] or [place] for followup but I would also be [...] Perez MD 06/02/2006 10:50 Anastasiya Perez MDAssociate ProfessorGifford Medical CenterDivision of Neurological SurgeryMarvin Perez MD Marvin Perez MD Top Trimmer [facility] Division of Neurological Surgery - Sunni Perez MD P - bb Job ID: [id number] Document ID: [id number] cc: Kris Drew MD documented in this encounter Plan of Treatment Upcoming Encounters Date Type Department Care Team (Late st Contact Info) Description 10/01/2024 13:40 EDT Office Visit [facility] Endocrinology - [facility] [address] [place] [address] Wilder Zaidi, DO [address] [facility] [address] [place] [phone] documented as of this encounter Visit Diagnoses Not on filedocumented in this encounter Care Teams Clinical Biochemical Geneticist Relationship Specialty Start Date End Date Corin Skinner MD [address] [place] [phone] PCP - General 10/24/08 08/21/09 documented as of this encounter
--- OUTSIDE RECORDS SUMMARY | 2024-08-06 01:06 | XMS_ITS | Encounter Summary ---
Author Organization [facility] Address [address] [place] [address] Care Team Providers Care Scientific Research Manager Name Role Phone Corin Skinner MD Primary Care Provider [phone] Encounter Details Date Type Department Care Team (Late st Contact Info) Description 02/11/2008 Before PRISM Converted Visit (Maple) [facility] - Maple conversion [address] [place] [address] Jose Lopez MD PhD 111 [facility]. [address] [place] [phone] Social History Tobacco Use Types Packs/Day Years [...] Jose Lopez MD,PHD ABPN Certified in Neurology [place] [employer] Clinical Neurophysiology - Jose Lopez MD,PHD P - LBR Job ID: [id number] Document ID: [id number] cc: MD Yan Walker MD lbr Job ID: [id number] Document ID: [id number] cc: MD Yan Walker MD documented in this encounter Plan of Treatment Upcoming Encounters Date Type Department Care Team (Late st Contact Info) Description 10/01/2024 13:40 EDT Office Visit [facility] Endocrinology - [facility] [address] [place] [address] Wilder Zaidi, DO 62 [facility] [address] [place] [address] documented as of this encounter Visit Diagnoses Not on filedocumented in this encounter Care Teams Scientific Research Manager Relationship Specialty Start Date End Date Corin Skinner MD [address] [place] [phone] PCP - General 10/24/08 08/21/09 documented as of this encounter
--- OUTSIDE RECORDS SUMMARY | 2024-08-06 01:06 | XMS_ITS | Encounter Summary ---
Author Organization [facility] Address [address] [place] [address] Care Team Providers Care Marketing Production Coordinator Name Role Phone Unavailable Primary Care Provider Unavailabl e Encounter Details Date Type Department Care Team (Late st Contact Info) Description 05/23/2006 7:52 EST - 05/23/2006 11:59 EST Hospital Encounter [facility] Perioperative Services- [facility] [address] [place], [place] [id number] Jason Olea MD [address] [facility], [address] [place] [address] Marvin Perez MD [address] [place] [phone] Discharge Disposition: Home or Self Care [...] Endocrinology - [facility] [address] [place], [place] [id number] Wilder Zaidi, 62 [facility] [address] [place] [phone] documented as of this encounter Procedures [...] void ??is seen in the intracranial vessels. [id number] D: ??05/24/2006 11:09 T: ??05/26/2006 17:31 Addendum [...] void is seen in the intracranial vessels. [id number] Addendum Begins MRI of the brain was done with and without IV contrast. Addendum Ends Jason Olea MD [facility] [place] MRI ORDERABLES Final Re sult documented in this encounter Visit Diagnoses Not on filedocumented in this encounter
--- OUTSIDE RECORDS SUMMARY | 2024-08-06 01:06 | XMS_ITS | Encounter Summary ---
Author Organization [facility] Address [address] [place] [address] Care Team Providers Care Aws Consultant Name Role Phone Yan Demarco MD Primary Care Provider [phone] Corin Skinner MD Primary Care Provider [phone] Encounter Details Date Type Department Care Team (Late st Contact Info) Description 11/27/2007 Office Visit [facility] - Maple conversion [address] [place] [address] Neo Benitez MD [address] [place] [phone] Social History Tobacco Use Types Packs/Day [...] Addenda for MIGUEL ANGEL BURGOS JR VisitID: [id number] Date: 11/27/2007 11/27/2007 15:41 MARGUERITE ONTIVEROS FROM [...] at 0800 and 1600, colace 1-200mg bid, ewvyfdonbnls35 mg every 8 hours, niacin 75mg tid, temazepan 30 mg at 1600 daily - last doses given not available on transfer paperwork). --1809 Dinorah Boyd R.N.. History Chief Complaint: (altered mental status). This started today. Roberson-Carter pain scale: 2/10. Treatment CLUB WAITER/WAITRESS: (see transfer paperwork). SOCIAL HX: Nonsmoker. No alcohol use. 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 pt. has around the clock care. Arrived by EMS. Historian: EMS (transport coordinator). --1809 Dinorah Boyd R.N.. PHYSICAL ASSESSMENT Alert. [...] RR: 10. O2 saturation: 99% room air. telemetry monitor, pulse oximeter and NIBPmonitor placed on patient; monitor alarms on. (pt. parents report pt. with brief episode ofhe was gone states pt. eyes rolled back in his head and it was like he wasn't there deny any kind of motor movement or eye movement - this not witnessed by this movie writer; pt. is upon assessment at what [...] [facility] ([facility]). --0013 Dinorah Boyd [...] EDT Office Visit [facility] Endocrinology - [facility] [address] [place] [address] Wilder Zaidi, 62 [facility] [address] [place] [address] documented as of this encounter Visit Diagnoses Not on filedocumented in this encounter Care Teams Aws Consultant Relationship Specialty Start Date End Date Yan Demarco MD [address] [place] [address] PCP - General 08/22/09 02/20/10 Corin Skinner MD [address] [place] [phone] PCP - General 10/24/08 08/21/09 documented as of this encounter
--- OUTSIDE RECORDS SUMMARY | 2024-08-06 01:06 | XMS_ITS | Encounter Summary ---
Author Organization [facility] Address [address] [place] [address] Care Team Providers Care Shaping Machine Operator Name Role Phone Corin Skinner MD Primary Care Provider [phone] Encounter Details Date Type Department Care Team (Late st Contact Info) Description 02/11/2007 Before PRISM Converted Visit (Maple) [facility] - Maple conversion [address] [place] [address] Skyler Edwards [facility] [address] [place] [phone] Social History Tobacco Use Types Packs/Day Years [...] - February 11, 2007 Ren Lynch MD [address], [address] [place] [address] Lynch: I had the pleasure [...] 02/13/2007 14:11 Lincoln Edwards [facility] [id number] James Zimakas, [facility] Von Edwards, [facility] [phone] Skyler Edwards MD Division of Pediatric Endocrinology [phone] Pamerrick Edwards MD P - YASMINE Job ID: [id number] Doc ID: [id number] cc: Ren Lynch MD - Skyler Edwards MD P - yasmine Job ID: [id number] Doc ID: [id number] cc: MD Kris Ricks MD documented in this encounter Plan of Treatment Upcoming Encounters Date Type Department Care Team (Late st Contact Info) Description 10/01/2024 13:40 EDT Office Visit [facility] Endocrinology - [facility] [address] [place], [place] [phone] Wilder Zaidi, [address] [phone] documented as of this encounter Visit Diagnoses Not on filedocumented in this encounter Care Teams Shaping Machine Operator Relationship Specialty Start Date End Date Corin Skinner MD [address] [place] [phone] PCP - General 10/24/08 08/21/09 documented as of this encounter
--- OUTSIDE RECORDS SUMMARY | 2024-08-06 01:06 | XMS_ITS | Encounter Summary ---
Author Organization [facility] Address [address] [place] [address] Care Team Providers Care Tile Mechanic Name Role Phone Corin Skinner MD Primary Care Provider [phone] Encounter Details Date Type Department Care Team (Late st Contact Info) Description 05/15/2007 Before PRISM Converted Visit (Maple) [facility] - Maple conversion [address] [place] [address] Marvin Perez MD [address] [place] [phone] Social History Tobacco Use Types Packs/Day [...] PROGRESS/FOLLOWUP NOTE - 05/15/2007 Kris Drew MD [address] [place] [address] Drew: Miguel Angel Burgos was here for a one-year followup MRI scan. A cystic component of the lesion has shrunk, and otherwise, the scan remains unchanged. His father states that he is improving over time. He remains neurologically impaired at his baseline. He will follow up in one year with a repeat MRI scan. Sincerely, Signed by Marvin Preez MD 05/22/2007 09:17 Marvin Perez MD - Marvin Perez MD - Job ID: [id number] Doc ID: [id number] cc: Kris Drew MD - Job ID: [id number] Doc ID: [id number] cc: Kris Drew MD documented in this encounter Plan of Treatment Upcoming Encounters Date Type Department Care Team (Late st Contact Info) Description 10/01/2024 13:40 EDT Office Visit [facility] Endocrinology - [address] [phone] Wilder Zaidi, [address] [place] [address] documented as of this encounter Visit Diagnoses Not on filedocumented in this encounter Care Teams Tile Mechanic Relationship Specialty Start Date End Date Corin Skinner MD [address] [place] [phone] PCP - General 10/24/08 08/21/09 documented as of this encounter
--- OUTSIDE RECORDS SUMMARY | 2024-08-06 01:06 | XMS_ITS | Encounter Summary ---
Author Organization [facility] Address [address] [place] [address] Care Team Providers Care Planer Tailer Name Role Phone Corin Skinner MD Primary Care Provider [phone] Encounter Details Date Type Department Care Team (Late st Contact Info) Description 02/08/2008 Before PRISM Converted Visit (Maple) [facility] - Maple conversion [address] [place] [address] Rui Bazan MD Social History Tobacco Use Types Packs/Day Years Used Date Smoking Tobacco: Never Assessed Sex and Gender Information Value Date Recorded Sex Assigned at Not on file Legal Sex Male 18:35 EST Gender Identity Not on file Sexual Orientation Not on file documented as of this encounter Consult Notes * Rui Bazan III, MD - 04/03/2009 [id number] EDT CONSULTATION - 02/08/2008 NEUROLOGY HEALTH CARE [...] before the family had gone out for [employer] food. He had had his medications at the usual time at 4:30 p.m. While at the [employer] Restaurant the family stated that his body [...] Bazan III, MD - CHRISSY Job ID: [id number] Doc ID: [id number] cc: Yan Demarco MD documented in this encounter Plan of Treatment Upcoming Encounters Date Type Department Care Team (Late st Contact Info) Description 10/01/2024 13:40 EDT Office Visit [facility] Endocrinology - [facility] [address] [place] [address] Wilder Zaidi, 62 [facility] [address] [place] [address] documented as of this encounter Visit Diagnoses Not on filedocumented in this encounter Care Teams Planer Tailer Relationship Specialty Start Date End Date Corin Skinner MD [address] [place] [phone] PCP - General 10/24/08 08/21/09 documented as of this encounter
--- OUTSIDE RECORDS SUMMARY | 2024-08-06 01:06 | XMS_ITS | Encounter Summary ---
Author Organization [facility] Address [address] [place] [address] Care Team Providers Care Dog Obedience Instructor Name Role Phone Unavailable Primary Care Provider Unavailabl e Encounter Details Date Type Department Care Team (Late st Contact Info) Description 08/13/2006 12:57 EST Hospital Encounter [facility] [address] [place] [address] [facility] [address] [place] [phone] Social History Tobacco Use Types Packs/Day Years [...] Office Visit [facility] Endocrinology - [facility] [address] [place] [address] Wilder Zaidi, DO 62 [facility] [address] [place] [address] documented as of this encounter Visit Diagnoses Not on filedocumented in this encounter
--- OUTSIDE RECORDS SUMMARY | 2024-08-06 01:06 | XMS_ITS | Encounter Summary ---
Author Organization [facility] Address [address] [place] [address] Care Team Providers Care Weatherstrip Machine Operator Name Role Phone Unavailable Primary Care Provider Unavailabl e Encounter Details Date Type Department Care Team (Late st Contact Info) Description 08/13/2005 9:56 EST - 08/13/2005 11:59 EST Hospital Encounter [facility] Perioperative Services- [facility] [address] [place], [place] [address] Hilton Álvarez MD [address] [place] [phone] Discharge Disposition: Home or Self Care Social [...] EDT Office Visit [facility] Endocrinology - [facility] [address] [place] [address] Wilder Zaidi, 62 [facility] [address] [place] [address] documented as of this encounter [...] 3 EST 08/13/2005 17:30 EST Skyler Edwards [facility]MI[facility] ORDERABLES Final Result [facility] [address] [place] [address] * (ABNORMAL) INSULIN LIKE GROWTH FACTOR I (IGF-1) (08/13/2005 17:03 EST) Insulin-Like GF-1 54Unit: ng/mL(Note) -- EXPECTED VALUES -- ? (Ref Range) 237 to 996 ? Test Performed by: ? [facility] Dpt of Lab Med and Pathology ? [address] [place] [address] ? Senior Sales Manager: Hamzah Mcghee M.D. ?(L) [facility] 08/13/2005 17:0 3 EST 08/13/2005 17:30 EST Skyler Edwards [facility] CHEMISTRY [facility] BL OOD GAS ORDERABLES Final Result [facility] [address] [place] [address] * (ABNORMAL) INSULIN-LIKE GROWTH FACTOR BINDING PROTEIN 3 (IGFBP-3), SERUM (08/13/2005 17:03 EST) IGFBP-3 2.6Unit: ug/mL(Note) -- EXPECTED VALUES -- ? (Ref Range) 3.5 to 10 ? Devonte Stages ??Males ?I ? 1.2-6.4 ? II ? 2.8-6.9 ? III ?3.9-9.4 ? IV ? 3.3-8.1 ?V ? 2.7-9.1 ? Test Performed by: ? [facility] Dpt of Lab Med and Pathology ? [address] , [place] [address] ? Senior Sales Manager: Hamzah Mcghee M.D. ?(L) [facility] 08/13/2005 17:0 3 EST 08/13/2005 17:30 EST Skyler Von Aburto Grace [facility] CHEMI[facility] ORDERABLES Final Result Performing Organization Address [facility] de Phone Number [facility] [address] [place] [address] * T4 FREE (08/13/2005 17:03 EST) Free T4 1.4 0.8 - 1.8 ng/dl [facility] 08/13/2005 17:0 3 EST 08/13/2005 17:30 EST Skyler Edwards [facility] CHEMISTR[facility] ORDERABLES Final Result Performing Organization Address [facility] de Phone Number [facility] [address] [place] [address] * (ABNORMAL) COMPREHENSIVE METABOLIC PANEL (08/13/2005 17:03 [...] 3 EST 08/13/2005 17:30 EST Skyler Edwards [facility] CHEMI[facility] ORDERABLES Final Result [facility] [address] [place] [address] documented in this encounter Visit Diagnoses Not on filedocumented in this encounter
--- OUTSIDE RECORDS SUMMARY | 2024-08-06 01:06 | XMS_ITS | Encounter Summary ---
Author Organization [facility] Address [address] [place] [address] Care Team Providers Care Licensed Psychologist Name Role Phone Unavailable Primary Care Provider Unavailabl e Encounter Details Date Type Department Care Team (Late st Contact Info) Description 11/28/2007 8:34 EDT - 11/28/2007 11:59 EDT Hospital Encounter [facility] [address] [place] [address] Desean Huerta MD [address] [place] [phone] Discharge Disposition: Auto Discharge Social History Tobacco [...] Visit [facility] Endocrinology - [facility] [address] [place] [address] Wilder Zaidi, [address] [facility] [address] [place] [phone] documented as of this encounter Procedures Procedure [...] HCT 35.1(L) 37.0 - 49.0 % [facility] MCV 77(L) 78 - 98 fl [...] BLES Final Result [facility] [address] [place] [address] * (ABNORMAL) TSH (04/11/2008 8:55 EDT) TSH <0.02(L) 0.35 - 5.00 uIU/mL [facility] 04/11/2008 8:55 EDT 04/11/2008 9:09 EDT us Default Emergency MD CHEMISTRY & BLOOD GAS ORDER LYNDSEY Final Result Performing Organization Address [facility] Co de Phone Number [facility] [address] [place] [address] * (ABNORMAL) T4 FREE (04/11/2008 8:55 EDT) Free T4 1.7(H) 0.8 - 1.5 ng/dL [facility] 04/11/2008 8:55 EDT 04/11/2008 9:09 EDT us Default Emergency CHEMISTRY & BLOOD GAS ORDER LYNDSEY Final Result Performing Organization Address [facility] Co de Phone Number [facility] [address] [place] [address] * GLUCOSE, SERUM (04/11/2008 8:55 EDT) Glucose, Serum 79 70 - 100 mg/dl [facility] 04/11/2008 8:55 EDT 04/11/2008 9:09 EDT us Default Emergency CHEMISTRY & BLOOD GAS ORDER LYNDSEY Final Result Performing Organization Address City/[facility]/ZIP Co de Phone Number [facility] [address] [place] [address] * CREATININE (04/11/2008 8:55 EDT) Creatinine 0.60 0.6 - 1.2 mg/dl [facility] GFR, Calculated Age <18 ml/min/1.7 3m2 [facility] 04/11/2008 8:55 EDT 04/11/2008 9:09 EDT us Default Emergency MD CHEMISTRY & BLOOD GAS ORDER LYNDSEY Final Result Performing Organization Address [facility] de Phone Number [facility] [address] [place] [address] * BUN (04/11/2008 8:55 EDT) BUN 14 8 - 21 mg/dl [facility] 04/11/2008 8:55 EDT 04/11/2008 9:09 EDT us Default Emergency MD CHEMISTRY & BLOOD GAS ORDER LYNDSEY Final Result Performing Organization Address [facility] de Phone Number [facility] [address] [place] [address] * (ABNORMAL) ELECTROLYTES (04/11/2008 8:55 EDT) Sodium [...] LYNDSEY Final Result Performing Organization Address [facility] de Phone Number [facility] [address] [place] [address] * PORTABLE CHEST 1 VIEW (02/12/2008 14:29 [...] 70 - 100 mg/dl [facility] Rehabilitation Therapist ID [id number] Test Performed by Nursing Services [facility] 02/08/2008 23:3 8 EDT 02/09/2008 6:19 EDT us Provider Olga PANG CHEMISTRY & BLOOD GAS ORDERA BLES Final Result [facility] [address] [place] [address] * PHOSPHORUS (02/08/2008 22:45 EDT) Phosphorus 4.0 2.7 - 4.7 mg/dl [facility] 02/08/2008 22:4 5 EDT 02/08/2008 22:58 EDT us Default Emergency MD CHEMISTRY & BLOOD GAS ORDER LYNDSEY Final Result Performing Organization Address City/[facility] Co de Phone Number [facility] [address] [place] [address] * (ABNORMAL) MAGNESIUM (02/08/2008 22:45 EDT) Magnesium 1.4(L) 1.7 - 2.8 mg/dl [facility] 02/08/2008 22:4 5 EDT 02/08/2008 22:58 EDT us Default Emergency MD CHEMISTRY & BLOOD GAS ORDER LYNDSEY Final Result Performing Organization Address [facility] de Phone Number [facility] [address] [place] [address] * CALCIUM (02/08/2008 22:45 EDT) Calcium 8.6 8.5 - 10.5 mg/dl [facility] Calculated Calcium 9.3 8.5 - 10.5 mg/dl [facility] 02/08/2008 22:4 5 EDT 02/08/2008 22:58 EDT Default Emergency MD CHEMISTRY & BLOOD GAS ORDER LYNDSEY Final Result Performing Organization Address [facility] de Phone Number [facility] [address] [place] [address] * CORTISOL (02/08/2008 22:45 EDT) Cortisol 9 ug/dl [facility] Comment: 7-9a.m.=4.3-22.4 3-5p.m.=3.1-16.7 02/08/2008 22:4 5 EDT 02/08/2008 22:58 EDT us Default Emergency MD CHEMISTRY & BLOOD GAS ORDER LYNDSEY Final Result Performing Organization Address City/[facility] Co de Phone Number [facility] [address] [place] [address] * GLUCOSE, SERUM (02/08/2008 22:45 EDT) Pathologist [facility] Glucose, Serum 87 70 - 100 mg/dl [facility] 02/08/2008 22:4 5 EDT 02/08/2008 22:58 EDT us Default Emergency MD CHEMISTRY & BLOOD GAS ORDER LYNDSEY Final Result Performing Organization Address [facility] de Phone Number [facility] [address] [place] [address] * (ABNORMAL) BUN (02/08/2008 22:45 EDT) Pathologist [facility] BUN 6(L) 8 - 21 mg/dl [facility] 02/08/2008 22:4 5 EDT 02/08/2008 22:58 EDT Default Emergency MD CHEMISTRY & BLOOD GAS ORDER LYNDSEY Final Result Performing Organization Address [facility] de Phone Number [facility] [address] [place] [address] * (ABNORMAL) ELECTROLYTES (02/08/2008 22:45 EDT) Pathologist [facility] Sodium 117(LL) 136 - 145 mEq/L [facility] [...] LYNDSEY Final Result Performing Organization Address [facility] de Phone Number [facility] [address] [place] [address] * (ABNORMAL) CREATININE (02/08/2008 22:45 EDT) Pathologist [facility] Creatinine 0.40(L) 0.6 - 1.2 mg/dl [facility] GFR, Calculated Age <18 ml/min/1.7 3m2 [facility] 02/08/2008 22:4 5 EDT 02/08/2008 22:58 EDT Default Emergency MD CHEMISTRY & BLOOD GAS ORDER LYNDSEY Final Result Performing Organization Address [facility] de Phone Number [facility] [address] [place] [address] * PHENYTOIN (02/08/2008 22:45 EDT) Pathologist [facility] Phenytoin 12.9 ug/ml [facility] Calculated Phenytoin 13.4 ug/ml [facility] Comment: Calculated phenytoin is adjusted for albumin level. 02/08/2008 22:4 5 EDT 02/08/2008 22:58 EDT Default Emergency MD CHEMISTRY & BLOOD GAS ORDER LYNDSEY Final Result Performing Organization Address [facility] de Phone Number [facility] [address] [place] [address] * (ABNORMAL) HEMAGRAM AND DIFFERENTIAL (02/08/2008 22:45 EDT) [facility] WBC 3.05(L) 4.6 - 11.2 [...] ORDERA BLES Final Result Performing Organization Address [facility] Co de Phone Number [facility] [address] [place] [address] * (ABNORMAL) GLUCOSE, PLASMA (02/08/2008 17:12 EDT) Glucose, Plasma 64(L) 70 - 100 mg/dl [facility] 02/08/2008 17:1 2 EDT 02/08/2008 17:14 EDT Rui Bazan MD CHEMISTRY & BLOOD GAS ORDERABL ES Final Result Performing Organization Address [facility] de Phone Number [facility] [address] [place] [address] * (ABNORMAL) CREATININE (02/08/2008 17:12 EDT) Creatinine 0.57(L) 0.6 - 1.2 mg/dl [facility] GFR, Calculated Age <18 ml/min/1.7 3m2 [facility] 02/08/2008 17:1 2 EDT 02/08/2008 17:14 EDT Rui Bazan MD CHEMISTRY & BLOOD GAS ORDERABL ES Final Result Performing Organization Address [facility] Co de Phone Number [facility] [address] [place] [address] * PHENYTOIN (02/08/2008 17:12 EDT) Phenytoin 11.3 ug/ml [facility] Calculated Phenytoin 9.9 ug/ml [facility] Comment: Calculated phenytoin is adjusted for albumin level. 02/08/2008 17:1 2 EDT 02/08/2008 17:14 EDT Rui Bazan MD CHEMISTRY & BLOOD GAS ORDERABL ES Final Result Performing Organization Address [facility] de Phone Number [facility] [address] [place] [address] * (ABNORMAL) LIVER FUNCTION TESTS (02/08/2008 17:12 [...] Conjugated Bilirubin 0.0 0.0 - 0.3 mg/dl [facility] Bilirubin, Total <0.5 0.0 - 1.4 mg/dl [facility] 02/08/2008 17:1 2 EDT 02/08/2008 17:14 EDT Rui Bazan MD CHEMISTRY & BLOOD GAS ORDERABL ES Final Result Performing Organization Address [facility] Co de Phone Number [facility] [address] [place] [address] * (ABNORMAL) ELECTROLYTES (02/08/2008 17:12 EDT) Sodium [...] Final Result Performing Organization Address [facility] Co de Phone Number [facility] [address] [place] [address] * (ABNORMAL) HEMAGRAM (02/08/2008 17:12 EDT) WBC [...] ORDERABLES Fi nal Result Performing Organization Address [facility] de Phone Number [facility] [address] [place] [address] * MR HEAD W/WO CONTRAST (11/29/2007 22:06 [...]
--- OUTSIDE RECORDS SUMMARY | 2024-08-06 01:07 | XMS_ITS | Encounter Summary ---
Author Organization [facility] Address [address] [place] [address] Care Team Providers Care Tele Marketing Executive Name Role Phone Yan Demarco MD Primary Care Provider [phone] Corin Skinner MD Primary Care Provider [phone] Akil Serrano MD Primary Care Provider [phone] Yossi Torres MD Primary Care Provider [phone] Emilee Cody MD Primary Care Provider + Ren Vaz MD Primary Care Provider [phone] Encounter Details Date Type Department Care Team (Late st Contact Info) Description 01/01/2005 Before PRISM Converted Visit (Maple) [facility] Rehabilitation Therapy - [address] [address] Allison Alarcon MD [address] [place] [phone] Social History Tobacco Use Types Packs/Day Years [...] EDT Office Visit [facility] Endocrinology - [place] [address] Dejuan Wilder Valencia, DO [address] [place] [address] documented as of this encounter [...] on filedocumented in this encounter Care Teams Tele Marketing Executive Relationship Specialty Start Date End Date Yan Demarco MD [address] [place] [address] PCP - General 08/22/09 02/20/10 Corin Skinner MD [address] [place] [phone] PCP - General 10/24/08 08/21/09 Akil Serrano MD [address] [facility] [address] [place] [address] PCP - General 02/21/10 04/16/11 Yossi Torres MD [address] [place] [phone] PCP - General 04/17/11 03/14/16 Emilee Cody MD [address] [place] [address] PCP - General 03/15/16 09/29/18 Ren Vaz MD [address] [place] [address] [place] [address] PCP - General 09/30/18 documented as of this encounter
--- OUTSIDE RECORDS SUMMARY | 2024-08-06 01:07 | XMS_ITS | Encounter Summary ---
Author Organization [facility] Address [address] [place] [address] Care Team Providers Care Accounts Payable Professional Name Role Phone Unavailable Primary Care Provider Unavailabl e Encounter Details Date Type Department Care Team (Late st Contact Info) Description 01/01/2005 4:51 EDT - 01/15/2005 11:59 EDT Hospital Encounter [facility] Pediatric Unit [address] [place] [address] Jodi Parr MD [address] [facility], [address] [phone] Slava Pineda MD Discharge Disposition: Cancer Center/[facility] Social History Tobacco Use Types Packs/Day [...] left-sided weakness. [facility] on November 20, 2004. He had been sent to the [facility] Department because of increased irritability [...] date. DISPOSITION: The patient was discharged to [facility] facility. CONDITION AT DISCHARGE: Fair. DISCHARGE INSTRUCTIONS: Per patient family and [facility] facility: Discharge medications: Omeprazole 40 mg PO [...] levels daily and call Dr. Edwards at [facility] if there were any questions regarding his sodium. Free fluid targets would be based on daily sodium levels. The patient has already been followed by Dr. Edwards and he is involvedin his care. [facility] that [facility] can call Dr. Edwards when they have any questions regarding endocrine issues for Miguel Angel. Signed by Jodi Parr MD 02/20/2005 07:31 Isabel Tilley, Aleksandra Tilley, [facility] Par[place] MD= - Isabel Tilley MD P - Job ID: [id number] Document ID: [id number] cc: MD Thad Jones MD Thomas Moseley, [...] Visit [facility] Endocrinology - [address] [address] Wilder Zaidi, DO [address] [place] [address] [address] [place] [address] documented as of this encounter [...] examinations. D: ??01/10/05 T: ??01/15/05 /[facility] Procedure Note Jose Armando Barker [...] new findings since previous examinations. /[facility] us Wes Borja MD [facility] ORDERABLES Final Resul t * PORTABLE [...]
--- OUTSIDE RECORDS SUMMARY | 2024-08-06 01:07 | XMS_ITS | Encounter Summary ---
Author Organization [facility] Address [address] [place] [address] Care Team Providers Care Lead Carpenter Name Role Phone Yan Demarco MD Primary Care Provider [phone] Corin Skinner MD Primary Care Provider [phone] Akil Serrano MD Primary Care Provider [phone] Yossi Torres MD Primary Care Provider [phone] Emilee Cody MD Primary Care Provider + Ren Vaz MD Primary Care Provider [phone] Encounter Details Date Type Department Care Team (Late st Contact Info) Description 03/27/2005 Before PRISM Converted Visit (Maple) [facility] Pediatric Neurology - Main Painter [address] [place], [place] [address] Hilton Álvarez MD [address] [place] [phone] Social History Tobacco Use Types Packs/Day [...] EDT Office Visit [facility] Endocrinology [address] [place] [address] Wilder Zaidi, DO [address] [place] [address] documented as of this encounter [...] filedocumented in this encounter Care Teams Lead Carpenter Relationship Specialty Start Date End Date Yan Demarco MD [address] [place] [address] PCP - General 08/22/09 02/20/10 Corin Skinner MD [address] [place] [phone] PCP - General 10/24/08 08/21/09 Akil Serrano MD 74 [facility],[address] [phone] PCP - General 02/21/10 04/16/11 Yossi Torres MD [address] [place] [phone] PCP - General 04/17/11 03/14/16 Emilee Cody MD [address] [place] [phone] PCP - General 03/15/16 09/29/18 Ren Vaz MD [address] [place] [address] PCP - General 09/30/18 documented as of this encounter
--- OUTSIDE RECORDS SUMMARY | 2024-08-06 01:07 | XMS_ITS | Encounter Summary ---
Author Organization [facility] Address [address] [place] [address] Care Team Providers Care Wilton Weaver Name Role Phone Yan Demarco MD Primary Care Provider [phone] Corin Skinner MD Primary Care Provider Akil Serrano MD Primary Care Provider [phone] Encounter Details Date Type Department Care Team (Late st Contact Info) Description 12/10/2004 Before PRISM Converted Visit (Maple) [facility] - Maple conversion [address] [place] [address] Allison Alarcon MD [address] [place] [phone] Social History Tobacco Use Types Packs/Day Years [...] - ALLISON ALARCON MD /mo Voice ID: [id number] Doc ID: [id number] documented in this encounter Plan of Treatment Upcoming Encounters Date Type Department Care Team (Late st Contact Info) Description 10/01/2024 13:40 EDT Office Visit [facility] Endocrinology - [facility] [address] [place] [address] Wilder Zaidi, 62 [facility] [address] [place] [address] documented as of this encounter Visit Diagnoses Not on filedocumented in this encounter Care Teams Wilton Weaver Relationship Specialty Start Date End Date Yan Demarco MD [address] [place] [phone] PCP - General 08/22/09 02/20/10 Corin Skinner MD [address] [phone] PCP - General 10/24/08 08/21/09 Akil Serrano MD 74 [facility],[address] [address] PCP - General 02/21/10 04/16/11 documented as of this encounter
--- OUTSIDE RECORDS SUMMARY | 2024-08-06 01:07 | XMS_ITS | Encounter Summary ---
Author Organization [facility] Address [address] [place] [address] Care Team Providers Care Wastewater Treatment Plant Instructor Name Role Phone Yan Demarco MD Primary Care Provider [phone] Corin Skinner MD Primary Care Provider [phone] Encounter Details Date Type Department Care Team (Late st Contact Info) Description 12/31/2004 Office Visit [facility] - Maple conversion [address] [place] [address] Yan Guadarrama MD 111 [facility], Level [address] [place] [address] Social History Tobacco Use Types [...] 23:08) Addenda for MIGUEL ANGEL MASON VisitID: [id number] Date: 12/31/2004 12/31/2004 22:44 transferred from rehab [...] Unable to quantify level of pain. Treatment CUSTOMER TRAINING SPECIALIST: (Pain meds at rehab). PAST HX: No [...] --0106 Raleigh Lazo R.N. [facility] [place] [facility] --0322 Milady Taveras R.N. Patient transported to [place] by stretcher with nurse and tech. --0348 [...] DISPOSITION / DISCHARGE Transported via stretcher by [employer]. Report was given (to Deb Garcia). --12 Tenisha Heredia, Nurse Associate. Clara Guzman R.N., R.N., Nurse Associate. Locked/Released at 01/02/2005 9:37 by Rachel Reynolds R.N. documented in this encounter Plan of Treatment Upcoming Encounters Date Type Department Care Team (Late st Contact Info) Description 10/01/2024 13:40 EDT Office Visit [facility] Endocrinology - [facility] [address] [place] [address] Wilder Zaidi, 62 [facility] [address] [place] [address] documented as of this encounter Visit Diagnoses Not on filedocumented in this encounter Care Teams Wastewater Treatment Plant Instructor Relationship Specialty Start Date End Date Yan Demarco MD [address] [place] [address] PCP - General 08/22/09 02/20/10 Corin Skinner MD [address] [place] [phone] PCP - General 10/24/08 08/21/09 documented as of this encounter
--- OUTSIDE RECORDS SUMMARY | 2024-08-06 01:07 | XMS_ITS | Encounter Summary ---
Author Organization [facility] Address [address] [place] [address] Care Team Providers Care Licensed Insurance Agent Name Role Phone Yan Demarco MD Primary Care Provider Corin Skinner MD Primary Care Provider Akil Serrano MD Primary Care Provider [phone] Encounter Details Date Type Department Care Team (Late st Contact Info) Description 12/08/2004 Before PRISM Converted Visit (Maple) [facility] - Maple conversion [address] [place], [place] [address] Raleigh Angelo MD [address] [phone] Social History Tobacco Use Types Packs/Day Years [...] - RALEIGH ANGELO MD /lr Voice ID: [id number] Doc ID: [id number] nthroid, and hydrocortisone. Continue periodic monitoring of electrolytes and renal function. - RALEIGH ANGELO MD /lr Voice ID: [id number] Doc ID: [id number] documented in this encounter Plan of Treatment Upcoming Encounters Date Type Department Care Team (Late st Contact Info) Description 10/01/2024 13:40 EDT Office Visit [facility] Endocrinology - [address] [id number] Wilder Zaidi, [address] [place] [address] [address] [place] [address] documented as of this encounter Visit Diagnoses Not on filedocumented in this encounter Care Teams Licensed Insurance Agent Relationship Specialty Start Date End Date Yan Demarco MD [address] [place] [address] PCP - General 08/22/09 02/20/10 Corin Skinner MD [address] [place] [phone] PCP - General 10/24/08 08/21/09 Akil Serrano MD 74 [facility] [place] [address] PCP - General 02/21/10 04/16/11 documented as of this encounter
--- OUTSIDE RECORDS SUMMARY | 2024-08-06 01:07 | XMS_ITS | Encounter Summary ---
Author Organization [facility] Address [address] [place] [address] Care Team Providers Care Credit Risk Officer Name Role Phone Yan Demarco MD Primary Care Provider Corin Skinner MD Primary Care Provider Akil Serrano MD Primary Care Provider [phone] Encounter Details Date Type Department Care Team (Late st Contact Info) Description 12/01/2004 Before PRISM Converted Visit (Maple) [facility] - Maple conversion [address] [place] [address] Allison Alarcon MD [address] [place] [phone] Social History Tobacco Use Types Packs/Day Years [...] - ALLISON ALARCON MD /re Voice ID: [id number] Doc ID: [id number] ry liquid anesthetic drops to the ear and see how he responds. BUN and sodium were not drawn today due to an error. As these have been relatively stable, we will wait until tomorrow. PLAN: 1. BUN and sodium tomorrow. 2. Auralgan drops to his right ear. - ALLISON ALARCON MD /re Voice ID: [id number] Doc ID: [id number] documented in this encounter Plan of Treatment Upcoming Encounters Date Type Department Care Team (Late st Contact Info) Description 10/01/2024 13:40 EDT Office Visit [facility] Endocrinology - [facility] [address] [place] [address] Wilder Zaidi, 62 [facility] [address] [place] [address] documented as of this encounter Visit Diagnoses Not on filedocumented in this encounter Care Teams Credit Risk Officer Relationship Specialty Start Date End Date Yan Demarco MD [address] [place] [address] PCP - General 08/22/09 02/20/10 Corin Skinner MD [address] [phone] PCP - General 10/24/08 08/21/09 Akil Serrano MD 74 [facility] [address] [place], [place] [phone] PCP - General 02/21/10 04/16/11 documented as of this encounter
--- OUTSIDE RECORDS SUMMARY | 2024-08-06 01:07 | XMS_ITS | Encounter Summary ---
Author Organization [facility] Address [address] [place] [address] Care Team Providers Care Outbound Telemarketing Representative Name Role Phone Unavailable Primary Care Provider Unavailabl e Encounter Details Date Type Department Care Team (Latest Contact Info) Description 11/20/2004 12:11 EDT - 12/31/2004 11:59 EDT Hospital Encounter [facility] Rehabilitation Therapy Unit Level 2 [address] [place] [address] Allison Alarcon MD [address] [place] [phone] [facility] Social History [...] triglyceride was repeated and continued to be [id number]. The patient was seen further in evaluation [...] Alarcon MD A - LR Job ID: [id number] Document ID: [id number] cc: MD Kris Mccauley MD Christa M Zehle, MD Paul James Zimakas, MD [address] \* MERGEFORMAT Acosta Enriquez MD A - ck Job ID: [id number] Document ID: [id number] cc: MD Acosta Oakley MD Carol L Thayer, [place] [phone] \* MERGEFORMAT Krissy Chamberlain MD D: - Krissy Chamberlain MD P - mo Job ID: Document ID: [id number] cc: Marvin Hernandez MD Adrian [facility] [place], [id number] documented in this encounter Discharge Disposition Disposition [...] Alarcon MD A - mt Job ID: [id number] Document ID: [id number] cc: 29 [phone] * Allison Alarcon MD - 12/30/2004 0000 [...] Alarcon MD P - lr Job ID: [id number] Document ID: [id number] cc: * Allison Alarcon [...] Alarcon MD P - re Job ID: [id number] Document ID: [id number] cc: * Wicho Carlton [...] Carlton MD P - lr Job ID: [id number] Document ID: [id number] cc: * Allison Alarcon [...] Alarcon MD A - mt Job ID: [id number] Document ID: [id number] cc: bkmk * Allison Alarcon MD - 12/26/2004 0000 EDT INPATIENT PROGRESS NOTE PT LOC: F002 Service Date: 12/26/2004 DIAGNOSIS: Status post CVAs, status post craniopharyngioma resection. SUBJECTIVE: Patient seeming more restless this morning. Initially indicating pain in his lower belly but it appeared to be more related to a full Depends.career professional questioned some slight increase from the foot [...] Alarcon MD P - lr Job ID: [id number] Document ID: [id number] cc: * * Allison [...] Alarcon MD A - mt Job ID: [id number] Document ID: [id number] cc: * Allison Alarcon MD - 12/24/2004 0000 EDT INPATIENT PROGRESS NOTE PT LOC: F002 Service Date: 12/24/2004 DIAGNOSIS: Status post CVAs. SUBJECTIVE: [place] team has been noting excellent gains in [...] Alarcon MD P - chelle Job ID: [id number] Document ID: [id number] cc: le * Wicho [...] Carlton MD P - re Job ID: [id number] Document ID: [id number] cc: 24 * Wicho [...] Carlton MD A - mo Job ID: [id number] Document ID: [id number] cc: 6 * Wicho [...] Dr. Castañeda. I also discussed case with [facility] morning and OT aides. Signed by Wicho Carlton MD 12/21/2004 15:23 Nadine Garcia MD Wicho Carlton MD - Wicho Carlton MD A - mo Job ID: [id number] Document ID: [id number] cc: [email or web address] * [place] [...] Castañeda MD P - lr Job ID: [id number] Document ID: [id number] cc: * Wicho Carlton [...] have dictated a letter this morning for nephrology social worker to assist with placement into a subacute [...] Carlton MD P - mo Job ID: [id number] Document ID: [id number] cc: [id number] * [place] Castañeda MD - 12/20/2004 0000 [...] Castañeda MD P - mo Job ID: [id number] Document ID: [id number] cc: P, hyd * [...] Carlton MD P - ss Job ID: [id number] Document ID: [id number] cc: [id number] * [place] [...] Castañeda MD A - mt Job ID: [id number] Document ID: [id number] cc: * [place] Castañeda [...] Castañeda MD P - [place] Job ID: [id number] Document ID: [id number] cc: * Wicho Carlton MD - 12/18/2004 3329 EDT INPATIENT PROGRESS NOTE PT LOC: F002 [...] Carlton MD P - mo Job ID: [id number] Document ID: [id number] cc: g * [place] [...] Castañeda MD P - mt Job ID: [id number] Document ID: [id number] cc: inst * Wicho [...] Carlton MD P - MT Job ID: [id number] Document ID: [id number] cc: * [place] Castañeda [...] Castañeda MD [place] Castañeda MD - [place] Casatñeda MD P - mt Job ID: [id number] Document ID: [id number] cc: * Drew Larson [...] Larson MD P - lr Job ID: [id number] Document ID: [id number] cc: [id number] * Drew Larson MD - 12/15/2004 1939 [...] Larson MD P - lr Job ID: [id number] Document ID: [id number] cc: [facility] CC * Allison Alarcon MD [...] by Allison Alarcon MD 12/15/2004 19:53 Sky Hlolingsworth MD Allison Alarcon MD - Allison Alarcon MD A - re Job ID: [id number] Document ID: [id number] cc: *st * Allison Alarcon MD - 12/14/2004 1134 EDT INPATIENT PROGRESS NOTE PT LOC: F002 [...] Alarcon MD P - re Job ID: [id number] Document ID: [id number] cc: [id number]??? * Wicho [...] Carlton MD P - mh Job ID: [id number] Document ID: [id number] cc: kend I * [...] Castañeda MD A - re Job ID: [id number] Document ID: [id number] cc: 24 * [place] [...] Castañeda MD P - ss Job ID: [id number] Document ID: [id number] cc: * [place] Castañeda [...] Castañeda MD P - ss Job ID: [id number] Document ID: [id number] cc: 2 * Allison [...] Consider increasing free water. 2. Supervision on client advocate decreased to frequent checks. Continue 1:1 with other shifts. (40 minutes total time, greater than 50% care coordination with team and discussion and education with family). Signed by Allison Alarcon MD 12/12/2004 23:51 Sky Hollingsworth MD Allison Alarcon MD - Allison Alarcon MD P - ss Job ID: [id number] Document ID: [id number] cc: t ID: * [...] Castañeda MD A - ss Job ID: [id number] Document ID: [id number] cc: 80 documented in this encounter Plan of Treatment Upcoming Encounters Date Type Department Care Team (Late st Contact Info) Description 10/01/2024 13:40 EDT Office Visit [facility] Endocrinology - [place] [address] [place] [address] Wilder Zaidi, DO [address] [place] [address] documented as of this encounter [...] Doppler interrogation could not be performed adequately. /[facility] Narrative 03/02/2009 14:19 EDT POST OP CVA [...] Doppler interrogation could not be performed adequately. /[facility] us Ermelinda Lee MD IM US ORDERABLES Final Resul t * (ABNORMAL) SODIUM (12/02/2004 16:30 EDT) Sodium 134(L) 136 - 145 mEq/L [facility] 12/02/2004 16:3 0 EDT 12/02/2004 16:36 EDT us Allison Alarcon MD CHEMISTRY & BLOOD GAS ORDERA BLES Final Result [facility] [address] [place] [address] * BUN (12/02/2004 16:30 EDT) BUN 17 8 - 21 mg/dl [facility] 12/02/2004 16:3 0 EDT 12/02/2004 16:36 EDT us Allison Alarcon MD CHEMISTRY & BLOOD GAS ORDERA BLES Final Result [facility] [address] [place] [address] * CT HEAD WO CONTRAST (11/29/2004 14:39 [...] 145 mEq/L [facility] Comment:Performed at [place], [place] 11/29/2004 6:25 EDT 11/29/2004 6:36 EDT Allison Alarcon MD CHEMISTRY & BLOOD GAS ORDERA BLES Final Result [facility] [address] [place] [address] * BUN (11/29/2004 6:25 EDT) BUN 18 8 - 21 mg/dl [facility] Comment:Performed at [place], [place] 11/29/2004 6:25 EDT 11/29/2004 6:36 EDT Allison Alarcon MD CHEMISTRY & BLOOD GAS ORDERA BLES Final Result Performing Organization Address City/[facility]/ZIP Co de Phone Number [facility] [address] [place] [address] * C. DIFFICILE TOXIN (11/28/2004 13:30 EDT) Specimen Description Feces [facility] Result No C.difficil e toxin A or toxin B detected. [facility] Report Status Final [id number] [facility] 11/28/2004 13:3 0 EDT 11/28/2004 16:20 EDT Allison Alarcon MD MICROBIOLOGY - GENERAL ORDER LYNDSEY Final Result Performing Organization Address [facility] Co de Phone Number [facility] [address] [place] [address] * (ABNORMAL) SODIUM (11/28/2004 12:20 EDT) Sodium 134(L) 136 - 145 mEq/L [facility] Comment:Performed at [facility] [place], [place] 11/28/2004 12:2 0 EDT 11/28/2004 12:41 EDT Allison Alarcon MD CHEMISTRY & BLOOD GAS ORDERA BLES Final Result Performing Organization Address [facility] Co de Phone Number [facility] [address] [place] [address] * BUN (11/28/2004 12:20 EDT) BUN 19 8 - 21 mg/dl [facility] Comment:Performed at [facility], [place], [place] 11/28/2004 12:2 0 EDT 11/28/2004 12:41 EDT Allison Alarcon MD CHEMISTRY & BLOOD GAS ORDERA BLES Final Result Performing Organization Address [facility] Co de Phone Number [facility] [address] [place] [address] * SODIUM (11/27/2004 6:15 EDT) Sodium 137 136 - 145 mEq/L [facility] Comment:Performed at [place], [place] 11/27/2004 6:15 EDT 11/27/2004 6:26 EDT us Allison Alarcon MD CHEMISTRY & BLOOD GAS ORDERA BLES Final Result Performing Organization Address [facility]/ZIP Co de Phone Number [facility] [address] [place] [address] * BUN (11/27/2004 6:15 EDT) BUN 21 8 - 21 mg/dl [facility] Comment:Performed at [place], [place] 11/27/2004 6:15 EDT 11/27/2004 6:26 EDT us Allison Alarcon MD CHEMISTRY & BLOOD GAS ORDERA BLES Final Result Performing Organization Address [facility]/ZIP Co de Phone Number [facility] [address] [place] [address] * (ABNORMAL) TSH (11/26/2004 5:50 EDT) TSH 0.15(L) 0.50 - 5.00 uIU/ml [facility] 11/26/2004 5:50 EDT 11/26/2004 6:53 EDT us Allison Alarcon MD CHEMISTRY & BLOOD GAS ORDERA BLES Final Result Performing Organization Address [facility] Co de Phone Number [facility] [address] [place] [address] * SODIUM (11/26/2004 5:50 EDT) Sodium 138 136 - 145 mEq/L [facility] Comment:Performed at [place], [place] 11/26/2004 5:50 EDT 11/26/2004 6:53 EDT us Allison Alarcon MD CHEMISTRY & BLOOD GAS ORDERA BLES Final Result [facility] [address] [place] [address] * T4 FREE (11/26/2004 5:50 EDT) Free T4 1.2 0.8 - 1.8 ng/dl [facility] 11/26/2004 5:50 EDT 11/26/2004 6:53 EDT us Allison Alarcon MD CHEMISTRY & BLOOD GAS ORDERA BLES Final Result Performing Organization Address [facility]/ZIP Co de Phone Number [facility] [address] [place] [address] * BUN (11/26/2004 5:50 EDT) Pathologist [facility] BUN 20 8 - 21 mg/dl [facility] Comment:Performed at [facility] [employer] [place], [place] 11/26/2004 5:50 EDT 11/26/2004 6:53 EDT us Allison Alarcon MD CHEMISTRY & BLOOD GAS ORDERA BLES Final Result Performing Organization Address [facility]/ZIP Co de Phone Number [facility] [address] [place] [address] * TESTS ADDED BY PHONE (11/26/2004 5:50 EDT) Tests to be added TSH,FT4 [facility] 11/26/2004 5:50 EDT 11/26/2004 6:53 EDT us Allison Alarcon MD CHEMISTRY & BLOOD GAS ORDERA BLES Final Result [facility] [address] [place] [address] * SODIUM (11/25/2004 15:00 EDT) Sodium 137 136 - 145 mEq/L [facility] 11/25/2004 15:0 0 EDT 11/25/2004 15:12 EDT us Allison Alarcon MD CHEMISTRY & BLOOD GAS ORDERA BLES Final Result Performing Organization Address [facility] de Phone Number [facility] [address] [place] [address] * SODIUM (11/25/2004 6:05 EDT) Sodium 137 136 - 145 mEq/L [facility] Comment:Performed at [place], [place] 11/25/2004 6:05 EDT 11/25/2004 9:31 EDT us Allison Alarcon MD CHEMISTRY & BLOOD GAS ORDERA BLES Final Result Performing Organization Address [facility] de Phone Number [facility] [address] [place] [address] * BUN (11/25/2004 6:05 EDT) BUN 21 8 - 21 mg/dl [facility] Comment:Performed at [place], [place] 11/25/2004 6:05 EDT 11/25/2004 9:31 EDT us Allison Alarcon MD CHEMISTRY & BLOOD GAS ORDERA BLES Final Result Performing Organization Address [facility] de Phone Number [facility] [address] [place] [address] * SODIUM (11/24/2004 6:15 EDT) Sodium 144 136 - 145 mEq/L [facility] Comment:Performed at [place], [place] 11/24/2004 6:15 EDT 11/24/2004 9:58 EDT us Allison Alarcon MD CHEMISTRY & BLOOD GAS ORDERA BLES Final Result Performing Organization Address [facility]/ZIP Co de Phone Number [facility] [address] [place] [address] * (ABNORMAL) BUN (11/24/2004 6:15 EDT) BUN 22(H) 8 - 21 mg/dl [facility] Comment:Performed at [place], [place] 11/24/2004 6:15 EDT 11/24/2004 9:58 EDT us Allison Alarcon MD CHEMISTRY & BLOOD GAS ORDERA BLES Final Result Performing Organization Address [facility] Co de Phone Number [facility] [address] [place] [address] * (ABNORMAL) SODIUM (11/23/2004 5:50 EDT) Sodium 146(H) 136 - 145 mEq/L [facility] Comment:Performed at [place], [place] 11/23/2004 5:50 EDT 11/23/2004 7:26 EDT us Allison Alarcon MD CHEMISTRY & BLOOD GAS ORDERA BLES Final Result Performing Organization Address [facility] de Phone Number [facility] [address] [place] [address] * (ABNORMAL) BUN (11/23/2004 5:50 EDT) BUN 25(H) 8 - 21 mg/dl [facility] Comment:Performed at [place], [place] 11/23/2004 5:50 EDT 11/23/2004 7:26 EDT us Allison Alarcon MD CHEMISTRY & BLOOD GAS ORDERA BLES Final Result Performing Organization Address [facility] Co de Phone Number [facility] [address] [place] [address] * (ABNORMAL) SODIUM (11/22/2004 7:00 EDT) Sodium 147(H) 136 - 145 mEq/L [facility] Comment:Performed at [place], [place] 11/22/2004 7:00 EDT 11/22/2004 7:09 EDT Allison Alarcon MD CHEMISTRY & BLOOD GAS ORDERA BLES Final Result Performing Organization Address [facility] de Phone Number [facility] [address] [place] [address] * CREATININE (11/22/2004 7:00 EDT) Creatinine 0.8 0.6 - 1.2 mg/dl [facility] Comment:Performed at [place], [place] 11/22/2004 7:00 EDT 11/22/2004 7:09 EDT Allison Alarcon MD HISTORICAL LAB FOR SQ LOAD F inal Result Performing Organization Address [facility] de Phone Number [facility] [address] [place] [address] * (ABNORMAL) BUN (11/22/2004 7:00 EDT) BUN 28(H) 8 - 21 mg/dl [facility] Comment:Performed at [place], [place] 11/22/2004 7:00 EDT 11/22/2004 7:09 EDT Allison Alarcon MD CHEMISTRY & BLOOD GAS ORDERA BLES Final Result Performing Organization Address [facility] de Phone Number [facility] [address] [place] [address] * (ABNORMAL) ELECTROLYTES (11/21/2004 6:50 EDT) Sodium 146(H) 136 - 145 mEq/L [facility] Potassium 4.4 3.6 - 5.2 mEq/L [facility] Chloride 105 96 - 110 mEq/L [facility] CO2 33(H) 24 - 32 mEq/L [facility] Comment:Performed at [facility] [employer] [facility] [place], [place] 11/21/2004 6:50 EDT 11/21/2004 7:26 EDT Allison Alarcon MD CHEMISTRY & BLOOD GAS ORDERA BLES Final Result Performing Organization Address [facility] de Phone Number [facility] [address] [place] [address] * (ABNORMAL) HEMAGRAM (11/21/2004 6:50 EDT) WBC [...] [facility] RDW-CV 16.0 % [facility] 11/21/2004 6:50 EDT 11/21/2004 7:26 EDT us Allison Alarcon MD HEMATOLOGY & PF4 ORDERABLES Final Result Performing Organization Address [facility] de Phone Number [facility] [address] [place] [address] * CREATININE (11/21/2004 6:50 EDT) Creatinine 0.8 0.6 - 1.2 mg/dl [facility] Comment:Performed at [facility] [place], [place] 11/21/2004 6:50 EDT 11/21/2004 7:26 EDT Allison Alarcon MD HISTORICAL LAB FOR SQ LOAD F inal Result [facility] [address] [place] [address] * (ABNORMAL) BUN (11/21/2004 6:50 EDT) BUN 30(H) 8 - 21 mg/dl [facility] Comment:Performed at [facility] [employer] [place], [place] 11/21/2004 6:50 EDT 11/21/2004 7:26 EDT us Allison Alarcon MD CHEMISTRY & BLOOD GAS ORDERA BLES Final Result Performing Organization Address [facility] Co de Phone Number [facility] [address] [place] [address] * SODIUM (11/21/2004 6:00 EDT) Sodium 136 - 145 mEq/L [facility] 11/21/2004 6:00 EDT 11/21/2004 6:41 EDT us Allison Alarcon MD CHEMISTRY & BLOOD GAS ORDERA BLES Final Result Performing Organization Address [facility] Co de Phone Number [facility] [address] [place] [address] documented in this encounter Visit Diagnoses Not on filedocumented in this encounter
--- OUTSIDE RECORDS SUMMARY | 2024-08-06 01:07 | XMS_ITS | Encounter Summary ---
Author Organization [facility] Address [address] [place] [address] Care Team Providers Care Manager Sales Training Name Role Phone Yan Demarco MD Primary Care Provider [phone] Corin Skinner MD Primary Care Provider Akil Serrano MD Primary Care Provider [phone] Encounter Details Date Type Department Care Team (Late st Contact Info) Description 11/28/2004 Before PRISM Converted Visit (Maple) [facility] - Maple conversion [address] [place] [address] Allison Alarcon MD [address] [place] [phone] Social History Tobacco Use Types Packs/Day Years [...] - ALLISON ALARCON MD /re Voice ID: [id number] Doc ID: [id number] agitation and wailing have to do with pain. Amantadine has been increased, but this is not resulting in a marked change in his overall status. Questionable whether it has increased his agitation. Neurontin is a reasonable medication to start and trial. PLAN: 1. Will start Neurontin 100 mg bid 2. Re-check BUN and sodium tomorrow. - ALLISON ALARCON MD /re Voice ID: [id number] Doc ID: [id number] documented in this encounter Plan of Treatment Upcoming Encounters Date Type Department Care Team (Late st Contact Info) Description 10/01/2024 13:40 EDT Office Visit [facility] Endocrinology - [facility] [address] [place] [address] Wilder Zadii, DO [address] [facility] [facility] [address] [place] [address] documented as of this encounter Visit Diagnoses Not on filedocumented in this encounter Care Teams Manager Sales Training Relationship Specialty Start Date End Date Yan Demarco MD [address] [place] [address] PCP - General 08/22/09 02/20/10 Corin Skinner MD [address] [place] [phone] PCP - General 10/24/08 08/21/09 Akil Serrano MD [address] [facility] [address] [place] [address] PCP - General 02/21/10 04/16/11 documented as of this encounter
--- OUTSIDE RECORDS SUMMARY | 2024-08-06 01:07 | XMS_ITS | Encounter Summary ---
Author Organization [facility] Address [address] [place] [address] Care Team Providers Care Wrecker Operator Name Role Phone Yan Demarco MD Primary Care Provider [phone] Corin Skinner MD Primary Care Provider Akil eSrrano MD Primary Care Provider [phone] Encounter Details Date Type Department Care Team (Late st Contact Info) Description 11/25/2004 Before PRISM Converted Visit (Maple) [facility] - Maple conversion [address] [place] [address] Kylie Larson MD [address] [place] [phone] Social History Tobacco Use Types Packs/Day Years [...] - KYLIE LARSON MD /re Voice ID: [id number]: [id number] aspalpha -KYLIE LARSON MD /re Voice ID: [id number] Doc ID: [id number] documented in this encounter Plan of Treatment Upcoming Encounters Date Type Department Care Team (Late st Contact Info) Description 10/01/2024 13:40 EDT Office Visit [facility] Endocrinology - [facility] [address] [place] [address] Wilder Zaidi, 62 [facility] [address] [place] [address] documented as of this encounter Visit Diagnoses Not on filedocumented in this encounter Care Teams Wrecker Operator Relationship Specialty Start Date End Date Yan Demarco MD [address] [place] [address] PCP - General 08/22/09 02/20/10 Corin Skinner MD [address] [place] [phone] PCP - General 10/24/08 08/21/09 Akil Serrano MD [address] [facility] [place] [address] PCP - General 02/21/10 04/16/11 documented as of this encounter
--- OUTSIDE RECORDS SUMMARY | 2024-08-06 01:07 | XMS_ITS | Encounter Summary ---
Author Organization [facility] Address [address] [place] [address] Care Team Providers Care City Carrier Name Role Phone Yan Demarco MD Primary Care Provider [phone] Corin Skinner MD Primary Care Provider Akil Serrano MD Primary Care Provider [phone] Encounter Details Date Type Department Care Team (Late st Contact Info) Description 11/26/2004 Before PRISM Converted Visit (Maple) [facility] - Maple conversion [address] [place], [place] [address] [place] Angelo MD [address] [phone] Social History Tobacco Use Types Packs/Day Years [...] - RALEIGH ANGELO MD /mt Voice ID: [id number] Doc ID: [id number] spalpha - RALEIGH ANGELO MD /mt Voice ID: [id number] Doc ID: [id number] documented in this encounter Plan of Treatment Upcoming Encounters Date Type Department Care Team (Late st Contact Info) Description 10/01/2024 13:40 EDT Office Visit [facility] Endocrinology - [address] [phone] Wilder Zaidi, [address] [place] [address] documented as of this encounter Visit Diagnoses Not on filedocumented in this encounter Care Teams City Carrier Relationship Specialty Start Date End Date Yan Demarco MD [address] [place] [phone] PCP - General 08/22/09 02/20/10 Corin Skinner MD [address] [place] [phone] PCP - General 10/24/08 08/21/09 Akil Serrano MD [address] [place] [address],[address] [place] [address] PCP - General 02/21/10 04/16/11 documented as of this encounter
--- OUTSIDE RECORDS SUMMARY | 2024-08-06 01:07 | XMS_ITS | Encounter Summary ---
Author Organization [facility] Address [address] [place] [address] Care Team Providers Care Health Occupations Instructor Name Role Phone Yan Demarco MD Primary Care Provider [phone] Corin Skinner MD Primary Care Provider Akil Serrano MD Primary Care Provider [phone] Encounter Details Date Type Department Care Team (Late st Contact Info) Description 12/07/2004 Before PRISM Converted Visit (Maple) [facility] - Maple conversion [address] [place], [place] [address] [place] Angelo MD [address] [phone] Social History Tobacco Use Types Packs/Day Years [...] - RALEIGH ANGELO MD /lr Voice ID: [id number] Doc ID: [id number] [facility] ASSESSMENT AND PLAN: Continue full program activities. Review laboratory results when available. - RALEIGH ANGELO MD /lr Voice ID: [id number] Doc ID: [id number] documented in this encounter Plan of Treatment Upcoming Encounters Date Type Department Care Team (Late st Contact Info) Description 10/01/2024 13:40 EDT Office Visit [facility] Endocrinology - [facility] [address] [place], [place] [phone] Wilder Zaidi, 62 [facility] [address] [place] [address] documented as of this encounter Visit Diagnoses Not on filedocumented in this encounter Care Teams Health Occupations Instructor Relationship Specialty Start Date End Date Yan Demarco MD [address] [place] [phone] PCP - General 08/22/09 02/20/10 Corin Skinner MD [address] [place] [phone] PCP - General 10/24/08 08/21/09 Akil Serrano MD [address] [place] [address],[facility] [address] [place] [address] PCP - General 02/21/10 04/16/11 documented as of this encounter
--- OUTSIDE RECORDS SUMMARY | 2024-08-06 01:07 | XMS_ITS | Encounter Summary ---
Author Organization [facility] Address [address] [place] [address] Care Team Providers Care Edm Operator Name Role Phone Yan Demarco MD Primary Care Provider [phone] Corin Skinner MD Primary Care Provider Akil Serrano MD Primary Care Provider [phone] Encounter Details Date Type Department Care Team (Late st Contact Info) Description 11/28/2004 Before PRISM Converted Visit (Maple) [facility] - Maple conversion [address] [place], [place] [address] Raleigh Angelo MD [address] [phone] Social History Tobacco Use Types Packs/Day Years [...] - RALEIGH ANGELO MD /lr Voice ID: [id number] Doc ID: [id number] 0Vital signs are stable. The patient is afebrile. Cardiac rhythm is regular. Lung medellin are clear.Abdomen is soft. JVD is not visible. ASSESSMENT AND PLAN: Continue full program activities. Continue gastrostomy tube feedings and fluidadministration. - RALEIGH ANGELO MD /lr Voice ID: [id number] Doc ID: [id number] documented in this encounter Plan of Treatment Upcoming Encounters Date Type Department Care Team (Late st Contact Info) Description 10/01/2024 13:40 EDT Office Visit [facility] Endocrinology - [address] [address] Wilder Zaidi, [address] [facility] [address] [place] [address] documented as of this encounter Visit Diagnoses Not on filedocumented in this encounter Care Teams Edm Operator Relationship Specialty Start Date End Date Yan Demarco MD [address] [place] [address] PCP - General 08/22/09 02/20/10 Corin Skinner MD [address] [place] [phone] PCP - General 10/24/08 08/21/09 Akil Serrano MD [address] [facility] [place],[address] [address] PCP - General 02/21/10 04/16/11 documented as of this encounter
--- OUTSIDE RECORDS SUMMARY | 2024-08-06 01:07 | XMS_ITS | Encounter Summary ---
Author Organization [facility] Address [address] [place] [address] Care Team Providers Care Visual Education Director Name Role Phone Yan Demarco MD Primary Care Provider Corin Skinner MD Primary Care Provider [phone] Encounter Details Date Type Department Care Team (Late st Contact Info) Description 01/31/2005 Before PRISM Converted Visit (Maple) [facility] - Maple conversion [address] [place] [address] Wicho Carlton MD [address] [place] [address] Social History Tobacco Use Types [...] Carlton MD P - ss Job ID: [id number] Document ID: [id number] cc: documented in this encounter Plan of Treatment Upcoming Encounters Date Type Department Care Team (Late st Contact Info) Description 10/01/2024 13:[address] [facility] Endocrinology - [facility] [address] [place] [address] Wilder Zaidi, 62 [facility] [address] [place] [phone] documented as of this encounter Visit Diagnoses Not on filedocumented in this encounter Care Teams Visual Education Director Relationship Specialty Start Date End Date Yan Demarco MD [address] [place] [address] PCP - General 08/22/09 02/20/10 Corin Skinner MD [address] [place] [phone] PCP - General 10/24/08 08/21/09 documented as of this encounter
--- OUTSIDE RECORDS SUMMARY | 2024-08-06 01:07 | XMS_ITS | Encounter Summary ---
Author Organization [facility] Address [address] [place] [address] Care Team Providers Care Airport Refueling Handler Name Role Phone Yan Demarco MD Primary Care Provider Corin Skinner MD Primary Care Provider Akil Serrano MD Primary Care Provider [phone] Encounter Details Date Type Department Care Team (Late st Contact Info) Description 12/05/2004 Before PRISM Converted Visit (Maple) [facility] - Maple conversion [address] [place] [address] Allison Alarcon MD [address] [place] [phone] Social History Tobacco Use Types Packs/Day Years [...] - ALLISON ALARCON MD /re Voice ID: [id number] Doc ID: [id number] [facility] - ALLISON ALARCON MD /re Voice ID: [id number] Doc ID: [id number] documented in this encounter Plan of Treatment Upcoming Encounters Date Type Department Care Team (Late st Contact Info) Description 10/01/2024 13:40 EDT Office Visit [facility] Endocrinology - [facility] [address] [place], [place] [phone] Wilder Zaidi, 62 [facility] [address] [place] [address] documented as of this encounter Visit Diagnoses Not on filedocumented in this encounter Care Teams Airport Refueling Handler Relationship Specialty Start Date End Date Yan Demarco MD [address] [place] [address] PCP - General 08/22/09 02/20/10 Corin Skinner MD [address] [place] [phone] PCP - General 10/24/08 08/21/09 Akil Serrano MD [facility] [address] [place], [place] [address] PCP - General 02/21/10 04/16/11 documented as of this encounter
--- OUTSIDE RECORDS SUMMARY | 2024-08-06 01:07 | XMS_ITS | Encounter Summary ---
Author Organization [facility] Address [address] [place] [address] Care Team Providers Care Steam Service Inspector Name Role Phone Yan Demarco MD Primary Care Provider Corin Skinner MD Primary Care Provider Akil Serrano MD Primary Care Provider [phone] Encounter Details Date Type Department Care Team (Late st Contact Info) Description 11/24/2004 Before PRISM Converted Visit (Maple) [facility] - Maple conversion [address] [place] [address] Kylie Larson MD [address] [place] [phone] Social History Tobacco Use Types Packs/Day Years [...] - KYLIE LARSON MD /re Voice ID: [id number] Doc ID: [id number] - KYLIE LARSON MD /re Voice ID: [id number] Doc ID: [id number] documented in this encounter Plan of Treatment Upcoming Encounters Date Type Department Care Team (Late st Contact Info) Description 10/01/2024 13:40 EDT Office Visit [facility] Endocrinology - [address] [address] Wilder Zaidi, DO [address] [facility] [address] [place] [address] documented as of this encounter Visit Diagnoses Not on filedocumented in this encounter Care Teams Steam Service Inspector Relationship Specialty Start Date End Date Yan Demarco MD [address] [place] [address] PCP - General 08/22/09 02/20/10 Corin Skinner MD [address] [place] [phone] PCP - General 10/24/08 08/21/09 Akil Serrano MD [address] [address] PCP - General 02/21/10 04/16/11 documented as of this encounter
--- OUTSIDE RECORDS SUMMARY | 2024-08-06 01:07 | XMS_ITS | Encounter Summary ---
Author Organization [facility] Address [address] [place] [address] Care Team Providers Care Mechanic Foreman Name Role Phone Unavailable Primary Care Provider Unavailabl e Encounter Details Date Type Department Care Team (Latest Contact Info) Description 01/15/2005 12:20 EDT - 03/28/2005 11:59 EDT Hospital Encounter [facility] Rehabilitation Therapy Unit Level 2 [address] [place] [address] Allison Alarcon MD [address] [place] [phone] Discharge Disposition: Nursing Facility (Skilled) Social History [...] admitted to the inpatient rehabilitation service at [facility] on November 20, 2004. From [...] She will continue to reside in the [place] area and she presently requires hemodialysis three times a week. She will make attempts to travel and visit her son in the facility when able. DISCHARGE PLAN: 1. Transfer to [facility] for continuation of subacute level rehab services. 2. 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 The following recommendations are being given by the pediatric endocrinology service. Further questions can be referredto the endocrinology service at [facility] by calling and asking to be connected to the endocrinology service contract forester and if available, Dr. Davin Edwards, the pediatric chancellor. a. For management of his central diabetes [...] dictation. 5. If patient returns to the [facility] at some point, patients previous primary [...] Alarcon MD A - mt Job ID: [id number] Document ID: [id number] cc: MD Kris Mccauley MD Christa M Zehle, MD Paul James Zimakas, MD *Floresita Ramos MD, [facility], [address], [place] [address] documented in this encounter Discharge Disposition Disposition [...] Discharge from our services. 2. Transfer to [facility]. 3. Dictation of discharge summary. (Discharge work, greater than 30 minutes.) Signed by Allison Alarcon MD 03/29/2005 08:45 Sky Hollingsworth MD Allison Alarcon MD - Allison Alarcon MD P - lr Job ID: [id number] Document ID: [id number] cc: * Raleigh Castañeda MD - 03/28/2005 [...] Castañeda MD A - mt Job ID: [id number] Document ID: [id number] cc: * Allison Alarcon MD - 03/27/2005 [...] Length[facility] [place] multiple issues and needs. PLAN: 1. Recheck [...] Alarcon MD A - mt Job ID: [id number] Document ID: [id number] cc: * Raleigh Castañeda MD - 03/27/2005 [...] Castañeda MD A - chelle Job ID: [id number] Document ID: [id number] cc: * Allison Alarcon MD - 03/26/2005 [...] will be transferred to [facility] on . ASSESSMENT: patient status post CVA with craniopharyngioma. The patient still has difficulty calming himself and communicating needs appropriately when he gets more anxious or frustrated. Final details of MRI planned for tomorrow confirmed with the floor alumnae secretary. Also discussed with ENT for them to evaluate him for foreign bodies in his right ear canal. [facility] Sodium levels are showing good [...] Alarcon MD 03/27/2005 17:54 Sky Hollingsworth MD Alilson Alarcon MD - Allison Alarcon MD A - re Job ID: [id number] Document ID: [id number] cc: * Raleigh Castañeda MD - 03/26/2005 [...] Castañeda MD A - ss Job ID: [id number] Document ID: [id number] cc: * Allison Alarcon MD - 03/25/2005 [...] Alarcon MD A - mt Job ID: [id number] Document ID: [id number] cc: * Raleigh Castañeda MD - 03/25/2005 [...] Castañeda MD P - lr Job ID: [id number] Document ID: [id number] cc: * Allison Alarcon MD - 03/24/2005 [...] Alarcon MD A - mt Job ID: [id number] Document ID: [id number] cc: * Allison Alarcon MD - 03/23/2005 [...] Alarcon MD 03/25/2005 15:46 Sky Hollingsworth MD Alliosn Alarcon MD - Allison Alarocn MD A - re Job ID: [id number] Document ID: [id number] cc: * Raleigh Castañeda MD - 03/22/2005 [...] Castañeda MD P - lr Job ID: [id number] Document ID: [id number] cc: * Wicho Carlton MD - 03/22/2005 [...] Carlton MD P - lr Job ID: [id number] Document ID: [id number] cc: * Allison Alarcon MD - 03/21/2005 0000 EDT INPATIENT PROGRESS NOTE PT LOC: F002 Service Date: 03/21/2005 DIAGNOSIS: Bilateral cerebrovascular accidents/panhypopituitarism. SUBJECTIVE: Miguel Angel responsive and awake this morning. Denying any pain. Participating in therapies. OBJECTIVE: Vital signs are stable. Affect pleasant. Left hemiparesis continues. Verbal output remains with dysarthria. ASSESSMENT: CVA with panhypopituitarism. Anticipated discharge today to [facility] has been delayed to administrative and approval issues from the Medicaid system per our medical social worker. Mom has been informed. In [...] coordinate this were covered at length with radiation technician today. Reviewed with mom availability. PLAN: [...] will be able to be transferred to [facility] on that day. (Fifty minutes total time, greater than 50% direct patient and family discussion of issues as aboveand care coordination with team.) Signed by Allison Alarcon MD 03/23/2005 16:47 Sky Hollingsworth MD Allison Alarcon MD - Allison Alarcon MD A - mt Job ID: [id number] Document ID: [id number] cc: * Raleigh Castañeda MD - 03/21/2005 [...] Castañeda MD P - lr Job ID: [id number] Document ID: [id number] cc: * Allison Alarcon MD - 03/20/2005 [...] been approved and cleared for transfer to [facility] tomorrow. Mom is aware that this will [...] Alarcon MD A - mt Job ID: [id number] Document ID: [id number] cc: * Raleigh Castañeda MD - 03/20/2005 [...] Raleigh Castañeda MD 04/01/2005 13:54 Dena Castañeda, [facility] MD Raleigh Castañeda MD - Raleigh Castañeda MD A - re Job ID: [id number] Document ID: [id number] cc: * Allison Alarcon MD - 03/19/2005 [...] work reports patient has been accepted at [facility]. This final plan is to be reviewed with mom. Miguel Angel has not yet been informed. Staff are videotaping sessions to help give the next staff a baseline of where his sessions have been at and what to continue to work with. [facility] has also asked for a PPD to [...] with the patientprimary care physician from the [facility], Dr. Drew, who was here to see him. Reviewed the medical issues on him at present and focus of care. Dr. Drew indicates he feels he has made excellent progress. At present, there still is not enough staff or support in the [facility] to return him to a home environment. PLAN: 1. PPD to be placed today. 2. Social work working on contacting the mom, who is out of the hospital today, to start establishing a firm plan for when patient will be transferred to [facility] potentially or next Friday. 3. Continue all present medications. 4. Reinforce patient needs to have between 2 to 2.5 liters in fluids per day. Forty minutes total time, greater then 50% care coordination with team. Signed by Allison Alarcon MD 03/20/2005 08:43 Sky Hollingsworth MD Allison Alarcon MD - Allison Alarcon MD A - mt Job ID: [id number] Document ID: [id number] cc: * Raleigh Castañeda MD - 03/19/2005 [...] Raleigh Castañeda MD 03/27/2005 17:21 Dena Castañeda, [facility] MD Raleigh Castañeda MD - Raleigh Castañeda MD A - mt Job ID: [id number] Document ID: [id number] cc: * Allison Alarcon MD - 03/18/2005 [...] Alarcon MD A - mt Job ID: [id number] Document ID: [id number] cc: * Raleigh Castañeda MD - 03/18/2005 [...] Castañeda MD A - re Job ID: [id number] Document ID: [id number] cc: * Raleigh Castañeda MD - 03/17/2005 [...] Castañeda MD A - ss Job ID: [id number] Document ID: [id number] cc: * Raleigh Castañeda MD - 03/16/2005 [...] Raleigh Castañeda MD 03/26/2005 10:01 Dena Castañeda, [facility] MD Raleigh Castañeda MD - Raleigh Castañeda MD P - lr Job ID: [id number] Document ID: [id number] cc: * Wicho Carlton MD - 03/15/2005 [...] Carlton MD P - re Job ID: [id number] Document ID: [id number] cc: * Raleigh Castañeda MD - 03/15/2005 [...] Castañeda MD A - lr Job ID: [id number] Document ID: [id number] cc: * Allison Alarcon MD - 03/14/2005 [...] Alarcon MD A - mt Job ID: [id number] Document ID: [id number] cc: * Raleigh Castañeda MD - 03/14/2005 [...] Castañeda MD P - mh Job ID: [id number] Document ID: [id number] cc: * Allison Alarcon MD - 03/13/2005 [...] Alarcon MD A - re Job ID: [id number] Document ID: [id number] cc: * Raleigh Castañeda MD - 03/13/2005 [...] Castañeda MD P - mh Job ID: [id number] Document ID: [id number] cc: * Allison Alarcon MD - 03/12/2005 [...] Alarcon MD A - mt Job ID: [id number] Document ID: [id number] cc: * Raleigh Castañeda MD - 03/12/2005 [...] Castañeda MD P - mt Job ID: [id number] Document ID: [id number] cc: * Kris Thomas MD - 03/11/2005 [...] Kris Thomas MD P - Job ID: [id number] Document ID: [id number] cc: * Kris Thomas MD - 03/10/2005 [...] Kris Thomas MD P - Job ID: [id number] Document ID: [id number] cc: * Kris Thomas MD - 03/09/2005 [...] Thomas MD P - mh Job ID: [id number] Document ID: [id number] cc: * Wicho Carlton MD - 03/08/2005 [...] by Wicho Carlton MD 03/12/2005 15:36 Nadine Garica MD Wicho Carlton MD - Wicho Carlton MD P - re Job ID: [id number] Document ID: [id number] cc: * Raleigh Castañeda MD - 03/08/2005 [...] Raleigh Castañeda MD P - Job ID: [id number] Document ID: [id number] cc: * Raleigh Castañeda MD - 03/07/2005 [...] Castañeda MD A - re Job ID: [id number] Document ID: [id number] cc: * Wicho Carlton MD - 03/07/2005 [...] Carlton MD P - ss Job ID: [id number] Document ID: [id number] cc: * Raleigh Castañeda MD - 03/06/2005 [...] MD - Raleigh Castañeda MD P - textile chemist Job ID: [id number] Document ID: [id number] cc: * Wicho Carlton MD - 03/06/2005 [...] Carlton MD A - mt Job ID: [id number] Document ID: [id number] cc: * Wicho Carlton MD - 03/05/2005 [...] disposition options, as well, as discussed with director social service. Apparently,his casino operations supervisor is uncertain whether he can meet his [...] Carlton MD P - ss Job ID: [id number] Document ID: [id number] cc: * Raleigh Castañeda MD - 03/05/2005 [...] Castañeda MD A - re Job ID: [id number] Document ID: [id number] cc: * Raleigh Castañeda MD - 03/04/2005 [...] Castañeda MD A - ss Job ID: [id number] Document ID: [id number] cc: * Wicho Carlton MD - 03/04/2005 0000 EDT INPATIENT PROGRESS NOTE PT LOC: F002 Service Date: 03/04/2005 Miguel Angel appears to be more agitated over the last several days with uncertain etiology. Vital signs are stable, afebrile. Heart regular, lungs clear. Abdomen: G-tube is intact. Calves soft and nontender. Neurologic without change. IMPRESSION: 1. Craniopharyngioma resection: Continue present therapy program. director financial services is actively involved. I am of the understanding that outside agencies are going to be looking at him this week. 2. Hyponatremia: Continue to monitor intermittently. Signed by Wicho Carlton MD 03/05/2005 15:58 Nadine Garcia MD Wicho Carlton MD - Wicho Carlton MD P - ss Job ID: [id number] Document ID: [id number] cc: * Drew Larson MD - 03/03/2005 [...] Larson MD A - re Job ID: [id number] Document ID: [id number] cc: * Raleigh Castañeda MD - 03/02/2005 [...] Castañeda MD A - chelle Job ID: [id number] Document ID: [id number] cc: * Raleigh Castañeda MD - 03/01/2005 [...] MD - Raleigh Castañeda MD A - textile chemist Job ID: [id number] Document ID: [id number] cc: * Wicho Carlton MD - 02/28/2005 [...] elevated but stable. We are awaiting placement[facility]. Signed by Wicho Carlton MD 02/28/2005 14:08 Nadine Garcia MD Wicho Carlton MD - Wicho Carlton MD P - ss Job ID: [id number] Document ID: [id number] cc: * Raleigh Castañeda MD - 02/28/2005 [...] Castañeda MD A - mt Job ID: [id number] Document ID: [id number] cc: * Wicho Carlton MD - 02/27/2005 [...] Carlton MD A - ss Job ID: [id number] Document ID: [id number] cc: * Raleigh Castañeda MD - 02/27/2005 [...] Castañeda MD A - re Job ID: [id number] Document ID: [id number] cc: * Wicho Carlton MD - 02/26/2005 [...] Carlton MD A - ss Job ID: [id number] Document ID: [id number] cc: * Raleigh Castañeda MD - 02/26/2005 [...] Castañeda MD A - re Job ID: [id number] Document ID: [id number] cc: * Wicho Carlton MD - 02/25/2005 [...] Carlton MD P - ss Job ID: [id number] Document ID: [id number] cc: * Raleigh Castañeda MD - 02/25/2005 0000 EDT INPATIENT PROGRESS NOTE PT LOC: F002 Service Date: 02/25/2005 Mr. Burgos is a 14-cuwi-wsspbagruhvyx from resection of craniopharyngioma with resultant stroke [...] Castañeda MD P - ss Job ID: [id number] Document ID: [id number] cc: * Allison Alarcon MD - 02/24/2005 [...] to try and help with some of [place] behaviors. PLAN: 1. Change Ritalin to 15 mg q.a.m. and 5 mg q.p.m. 2. Start risperidone 1 mg p.o. q.p.m. 3. Labs as ordered for tomorrow. Allow Robaxin as a p.r.n. for discomfort at night. Signed by Allison Alarcon MD 02/26/2005 23:34 Sky Hollingsworth MD Allison Alarcon MD - Allison Alarcon MD A - re Job ID: [id number] Document ID: [id number] cc: * Allison Alarcon MD - 02/23/2005 [...] Alarcon MD P - lr Job ID: [id number] Document ID: [id number] cc: * Wicho Carlton MD - 02/22/2005 [...] Carlton MD P - ss Job ID: [id number] Document ID: [id number] cc: * Raleigh Castañeda MD - 02/22/2005 [...] Castañeda MD A - mt Job ID: [id number] Document ID: [id number] cc: * Allison Alarcon MD - 02/21/2005 [...] primary care physician, Dr. Drew, in the [place] area and reviewed with him the concerns regarding Robinpotential return to the [facility]. Details of agency management still being [...] patient contact and care coordination with [facility]). Signed by Allison Alarcon MD 02/23/2005 17:08 ACarol Sunni Alarcon MDCarol Sunni Alarcon MD Allison Alarcon MD - Allison Alarcon MD A - re Job ID: [id number] Document ID: [id number] cc: * Raleigh Castañeda MD - 02/21/2005 [...] Castañeda MD A - ss Job ID: [id number] Document ID: [id number] cc: * Allison Alarcon MD - 02/20/2005 [...] need back from his team in the [facility] area in terms of their [...] Alarcon MD A - ss Job ID: [id number] Document ID: [id number] cc: * Raleigh Castañeda MD - 02/20/2005 [...] Corey MD Raleigh Castañeda MD - Raleigh Castañead MD A - re Job ID: [id number] Document ID: [id number] cc: * Raleigh Castañeda MD - 02/19/2005 [...] Castañeda MD A - mt Job ID: [id number] Document ID: [id number] cc: * Allison Alarcon MD - 02/19/2005 [...] consultation if needed. Met also with [place] medical social worker out of his primary careoffice, who continues to follow. There was a case management meeting called last week in his local area. Primary care physician still concerned that there are not sufficient services that are going to be available in the local area from a home therapy standpoint, as well as needing to have a clear understanding of [place] behaviors and a good behavioral back-up plan. [...] Alarcon MD A - re Job ID: [id number] Document ID: [id number] cc: * Allison Alarcon MD - 02/18/2005 [...] Alarcon MD P - ss Job ID: [id number] Document ID: [id number] cc: * Raleigh Castañeda MD - 02/18/2005 [...] Castañeda MD A - ss Job ID: [id number] Document ID: [id number] cc: * Drew Larson MD - 02/17/2005 [...] will repeat labs tomorrow. Primary service will supervisor picking crew anychanges in his LFTs andrefer to appropriate specialists as necessary. Dr. Castaeñda will continue to follow closely. Electrolytes generally are under adequate control today. Follow-up electrolytes for tomorrow. Signed by Drew Larson MD 02/18/2005 11:45 Leroy Boateng MD Drew Larson MD - Drew Larson MD P - re Job ID: [id number] Document ID: [id number] cc: * Drew Larson MD - 02/16/2005 [...] Larson MD P - re Job ID: [id number] Document ID: [id number] cc: * Raleigh Castañeda MD - 02/15/2005 [...] Castañeda MD A - ss Job ID: [id number] Document ID: [id number] cc: * Raleigh Castañeda MD - 02/14/2005 [...] Castañeda MD P - mt Job ID: [id number] Document ID: [id number] cc: * Allison Alarcon MD - 02/14/2005 [...] If liver function tests are improving, Dr. Castaeñda will look at medication options to trial again. 2. Sodium to be checked Friday and Friday. Signed by Allison Alarcon MD 02/15/2005 09:37 ACarol KYLE Flowersarol Sunni Alarcon MD Allison Alarcon MD - Allison Alarcon MD A - mt Job ID: [id number] Document ID: [id number] cc: * Allison Alarcon MD - 02/13/2005 [...] Alarcon MD A - [place] Job ID: [id number] Document ID: [id number] cc: * Raleigh Castañeda MD - 02/13/2005 [...] Castañeda MD P - mh Job ID: [id number] Document ID: [id number] cc: * Allison Alarcon MD - 02/12/2005 [...] Dr. Edwards, who definitely want [facility] and his foster parents before [...] Alarcon MD A - mt Job ID: [id number] Document ID: [id number] cc: * Raleigh Castañeda MD - 02/12/2005 [...] Castañeda MD P - mh Job ID: [id number] Document ID: [id number] cc: * Raleigh Castañeda MD - 02/11/2005 [...] Castañeda MD P - mh Job ID: [id number] Document ID: [id number] cc: * Allison Alarcon MD - 02/11/2005 [...] and have education provided by a pediatric chancellor. Sodium continues to fluctuate be within an [...] Alarcon MD A - mo Job ID: [id number] Document ID: [id number] cc: * Allison Alarcon MD - 02/10/2005 [...] Alarcon MD A - mo Job ID: [id number] Document ID: [id number] cc: * Jai Barrera MD - 02/09/2005 [...] MD - Jai Barrera MD A - fl Job ID: [id number] Document ID: [id number] cc: * Raleigh Castañeda MD - 02/08/2005 [...] Castañeda MD A - mt Job ID: [id number] Document ID: [id number] cc: * Wicho Carlton MD - 02/08/2005 [...] Carlton MD A - mt Job ID: [id number] Document ID: [id number] cc: * Allison Alarcon MD - 02/07/2005 [...] Conference: Met with social work and nurse rn case management from his local area and his mom [...] Alarcon MD A - mt Job ID: [id number] Document ID: [id number] cc: * Raleigh Castañeda MD - 02/07/2005 [...] Castañeda MD P - lr Job ID: [id number] Document ID: [id number] cc: * Allison Alarcon MD - 02/06/2005 [...] Alarcon MD A - re Job ID: [id number] Document ID: [id number] cc: * Raleigh Castañeda MD - 02/06/2005 [...] Castañeda MD A - re Job ID: [id number] Document ID: [id number] cc: * Allison Alarcon MD - 02/05/2005 [...] Alarcon MD A - re Job ID: [id number] Document ID: [id number] cc: * Raleigh Castañeda MD - 02/05/2005 [...] Castañeda MD P - lr Job ID: [id number] Document ID: [id number] cc: * Wicho Carlton MD - 02/04/2005 [...] Carlton MD P - mo Job ID: [id number] Document ID: [id number] cc: * Raleigh Castañeda MD - 02/04/2005 [...] Castañeda MD A - mt Job ID: [id number] Document ID: [id number] cc: * Raleigh Castañeda MD - 02/03/2005 [...] Raleigh Castañeda MD A - Job ID: [id number] Document ID: [id number] cc: * Drew Larson MD - 02/02/2005 [...] Larson MD P - lr Job ID: [id number] Document ID: [id number] cc: * Wicho Carlton MD - 02/01/2005 [...] Carlton MD P - ss Job ID: [id number] Document ID: [id number] cc: * Raleigh Castañeda MD - 02/01/2005 [...] Castañeda MD P - mh Job ID: [id number] Document ID: [id number] cc: * Raleigh Castañeda MD - 01/31/2005 [...] Castañeda MD P - lr Job ID: [id number] Document ID: [id number] cc: * Wicho Carlton MD - 01/30/2005 0000 EDT INPATIENT PROGRESS NOTE PT LOC: F002 Service Date: 01/30/2005 The patient is relatively calm this morning. He was evaluated by director social service yesterday at the [facility] level for evaluation of next appropriate [...] and Zoloft. DISPOSITION: Social ervices at the [facility] is working with Lashon Lawton the [facility] to help assess placement issues. Case discussed with director social service this morning. Signed by Wicho Carlton MD 01/31/2005 08:05 Nadine Garcia MD Wicho Carlton MD - Wicho Carlton MD A - re Job ID: [id number] Document ID: [id number] cc: * Raleigh Castañeda MD - 01/30/2005 [...] Castañeda MD P - re Job ID: [id number] Document ID: [id number] cc: * Wicho Carlton MD - 01/29/2005 [...] Carlton MD P - mo Job ID: [id number] Document ID: [id number] cc: * Raleigh Castañeda MD - 01/29/2005 [...] Castañeda MD P - re Job ID: [id number] Document ID: [id number] cc: * Wicho Carlton MD - 01/28/2005 [...] Carlton MD P - chelle Job ID: [id number] Document ID: [id number] cc: * Raleigh Castañeda MD - 01/28/2005 [...] Castañeda MD P - lr Job ID: [id number] Document ID: [id number] cc: * Wicho Carlton MD - 01/27/2005 [...] Carlton MD P - re Job ID: [id number] Document ID: [id number] cc: * Wicho Carlton MD - 01/26/2005 [...] Carlton MD P - lr Job ID: [id number] Document ID: [id number] cc: * Wicho Carlton MD - 01/25/2005 [...] Carlton MD P - ss Job ID: [id number] Document ID: [id number] cc: * Raleigh Castañeda MD - 01/25/2005 [...] Castañeda MD A - mt Job ID: [id number] Document ID: [id number] cc: * Allison Alarcon MD - 01/24/2005 [...] Alarcon MD A - [place] Job ID: [id number] Document ID: [id number] cc: A - mo Job ID: [id number] Document ID: [id number] cc: * Raleigh Castañeda MD - 01/24/2005 [...] Castañeda MD P - re Job ID: [id number] Document ID: [id number] cc: * Allison Alarcon MD - 01/23/2005 [...] Alarcon MD A - ss Job ID: [id number] Document ID: [id number] cc: * Raleigh Castañeda MD - 01/23/2005 [...] Castañeda MD P - ss Job ID: [id number] Document ID: [id number] cc: * Allison Alarcon MD - 01/22/2005 [...] 5. Med psych to talk to prior rn case management and discuss medication regimen options. 6. Allow Percocet and Benadryl. 7. Team to work on behavioral plan with MEd Psych. minutes total time, greater than 50% direct patient, family education and care coordination with team). Signed by Allison Alarcon MD 01/23/2005 09:29 ACaSky Dumont MD Allison Alarcon MD - Allison Alarcon MD A - RE Job ID: [id number] Document ID: [id number] cc: * Raleigh Castañeda MD - 01/22/2005 [...] Castañeda MD P - ss Job ID: [id number] Document ID: [id number] cc: * Allison Alarcon MD - 01/21/2005 [...] Alarcon MD A - ss Job ID: [id number] Document ID: [id number] cc: * Raleigh Castañeda MD - 01/21/2005 [...] Castañeda MD P - lr Job ID: [id number] Document ID: [id number] cc: * Drew Larson MD - 01/20/2005 [...] him on the rehab unit with a deputy director of nursing wheeling him around. When he is [...] Larson MD A - chelle Job ID: [id number] Document ID: [id number] cc: * Raleigh Castañeda MD - 01/19/2005 [...] Castañeda MD P - re Job ID: [id number] Document ID: [id number] cc: * Wicho Carlton MD - 01/18/2005 [...] Carlton MD A - re Job ID: [id number] Document ID: [id number] cc: * Raleigh Castañeda MD - 01/18/2005 0000 EDT INPATIENT PROGRESS NOTE PT LOC: F002 Service Date: 01/18/2005 Mr. Burgos is a 60-ialu-jcfewmwqqhumx from resection of a craniopharyngioma with secondary [...] Raleigh Castañeda MD 01/25/2005 11:39 Dena Castañeda, [facility] MD Raleigh Castañeda MD - Raleigh Castañeda MD A - ss Job ID: [id number] Document ID: [id number] cc: * Allison Alarcon MD - 01/17/2005 [...] Alarcon MD P - lr Job ID: [id number] Document ID: [id number] cc: * Allison Alarcon MD - 01/16/2005 [...] Alarcon MD A - re Job ID: [id number] Document ID: [id number] cc: documented in this encounter Plan of Treatment Upcoming Encounters Date Type Department Care Team (Late st Contact Info) Description 10/01/2024 13:40 EDT Office Visit [facility] Endocrinology - [facility] [address] [place] [address] Wilder Zaidi, [address] [place] [address] documented as of this encounter [...] * SODIUM (03/26/2005 6:50 EDT) Pathologist [facility] Sodium 140 136 - 145 mEq/L [facility] Comment:Performed at [facility], [place], [place] 03/26/2005 6:50 EDT 03/26/2005 7:12 EDT us Allison Alarcon MD CHEMISTRY & BLOOD GAS ORDERA BLES Final Result Performing Organization Address [facility] Co de Phone Number [facility] [address] [place] [address] * (ABNORMAL) LIPID PROFILE (INCLUDES CHOLESTEROL, TRIGLYCERIDES, HDL, LDL) (03/22/2005 6:35 EDT) Cholesterol 174 mg/dl [facility] Comment: Desirable:<200 Borderline:200-239 High Risk:>nj=290 Triglycerides 675(H) 34 - 165 mg/dl [facility] Comment:Performed at [employer] [facility], [place], [place] HDL 24 mg/dl [facility] Comment: Highly Desirable:>60 Desirable:35-60 High Risk:<35 FASTING LDL, Calculated Triglyceride greater than 400 mg/dl, LDL calculation invalid. Desirable:<130 Borderline:130- 159 High Risk:>un=237 mg/dl [facility] Comment:FASTING Chol/HDL Ratio 7.3 FASTING [facility] Fasting? Yes [facility] 03/22/2005 6:35 EDT 03/22/2005 6:49 EDT us Allison Alarcon MD CHEMISTRY & BLOOD GAS ORDERA BLES Final Result Performing Organization Address [facility] Co de Phone Number [facility] [address] [place] [address] * (ABNORMAL) AST (03/22/2005 6:35 EDT) AST 86(H) 16 - 38 U/L [facility] Comment:Performed at [facility] [employer] [place] 03/22/2005 6:35 EDT 03/22/2005 6:49 EDT us Allison Alarcon MD CHEMISTRY & BLOOD GAS ORDERA BLES Final Result Performing Organization Address [facility] Co de Phone Number [facility] [address] [place] [address] * (ABNORMAL) ALT (03/22/2005 6:35 EDT) ALT 335(H) 10 - 45 U/L [facility] Comment:Performed at [place], [place] 03/22/2005 6:35 EDT 03/22/2005 6:49 EDT us Allison Alarcon MD CHEMISTRY & BLOOD GAS ORDERA BLES Final Result Performing Organization Address [facility] Co de Phone Number [facility] [address] [place] [address] * ALKALINE PHOSPHATASE (03/22/2005 6:35 EDT) Total Alkaline Phosphatase 309 130 - 525 U/L [facility] Comment:Performed at [place], [place] 03/22/2005 6:35 EDT 03/22/2005 6:49 EDT us Allison Alarcon MD CHEMISTRY & BLOOD GAS ORDERA BLES Final Result Performing Organization Address [facility] Co de Phone Number [facility] [address] [place] [address] * (ABNORMAL) SODIUM (03/20/2005 6:45 EDT) Sodium 149(H) 136 - 145 mEq/L [facility] Comment:Performed at [place], [place] 03/20/2005 6:45 EDT 03/20/2005 6:47 EDT us Allison Alarcon MD CHEMISTRY & BLOOD GAS ORDERA BLES Final Result Performing Organization Address [facility] Co de Phone Number [facility] [address] [place] [address] * (ABNORMAL) SODIUM (03/18/2005 6:45 EDT) Sodium 148(H) 136 - 145 mEq/L [facility] Comment:Performed at [place], [place] 03/18/2005 6:45 EDT 03/18/2005 6:56 EDT us Allison Alarcon MD CHEMISTRY & BLOOD GAS ORDERA BLES Final Result Performing Organization Address [facility] de Phone Number [facility] [address] [place] [address] * GLUCOSE, GLUCOMETER (03/15/2005 5:32 EDT) Glucose, Fingerstick 89 70 - 110 mg/dl [facility] Health Care Coach ID [id number] Test Performed by Nursing Services [facility] 03/15/2005 5:32 EDT 03/15/2005 22:32 EDT us Allison Alarcon MD CHEMISTRY & BLOOD GAS ORDERA BLES Final Result Performing Organization Address [facility] de Phone Number [facility] [address] [place] [address] * SODIUM (03/14/2005 6:25 EDT) Sodium 145 136 - 145 mEq/L [facility] Comment:[facility]formed [facility] [place] 03/14/2005 6:25 EDT 03/14/2005 6:53 EDT us Allison Alarcon MD CHEMISTRY & BLOOD GAS ORDERA BLES Final Result Performing Organization Address [facility] de Phone Number [facility] [address] [place] [address] * (ABNORMAL) SODIUM (03/13/2005 6:00 EDT) Sodium 152(H) 136 - 145 mEq/L [facility] Comment:Performed at [facility] [place] 03/13/2005 6:00 EDT 03/13/2005 6:59 EDT us Allison Alarcon MD CHEMISTRY & BLOOD GAS ORDERA BLES Final Result Performing Organization Address [facility] de Phone Number [facility] [address] [place] [address] * (ABNORMAL) SODIUM (03/12/2005 17:04 EDT) Pathologist [facility] Sodium 151(H) 136 - 145 mEq/L [facility] Comment:Slight hemolysis 03/12/2005 17:0 4 EDT 03/12/2005 17:05 EDT Allison Alarcon MD CHEMISTRY & BLOOD GAS ORDERA BLES Final Result [facility] [address] [place] [address] * (ABNORMAL) TRIGLYCERIDE (03/06/2005 6:25 EDT) [facility] Triglycerides 342(H) 34 - 165 mg/dl [facility] Comment:Performed at [place], [place] 03/06/2005 6:25 EDT 03/06/2005 6:32 EDT us Allison Alarcon MD CHEMISTRY & BLOOD GAS ORDERA BLES Final Result Performing Organization Address [facility] Co de Phone Number [facility] [address] [place] [address] * T3, TOTAL (03/06/2005 6:25 EDT) Pathologist [facility] T3, Total 147 60 - 181 ng/dl [facility] 03/06/2005 6:25 EDT 03/06/2005 6:32 EDT us Allison Alarcon MD CHEMISTRY & BLOOD GAS ORDERA BLES Final Result Performing Organization Address City/[facility] Co de Phone Number [facility] [address] [place] [address] * GLUCOSE, SERUM (03/06/2005 6:25 EDT) Pathologist [facility] Glucose, Serum 90 70 - 110 mg/dl [facility] Comment:Performed at [place], [place] 03/06/2005 6:25 EDT 03/06/2005 6:32 EDT us Allison Alarcon MD CHEMISTRY & BLOOD GAS ORDERA BLES Final Result Performing Organization Address [facility] de Phone Number [facility] [address] [place] [address] * PREALBUMIN (03/06/2005 6:25 EDT) Prealbumin 35 mg/dl [facility] 03/06/2005 6:25 EDT 03/06/2005 6:32 EDT us Allison Alarcon MD CHEMISTRY & BLOOD GAS ORDERA BLES Final Result Performing Organization Address [facility] de Phone Number [facility] [address] [place] [address] * (ABNORMAL) ELECTROLYTES (03/06/2005 6:25 EDT) Sodium 147(H) 136 - 145 mEq/L [facility] Potassium 4.6 3.6 - 5.2 mEq/L [facility] Chloride 111(H) 96 - 110 mEq/L [facility] CO2 25 24 - 32 mEq/L [facility] Comment:Performed at [facility] [place], [place] 03/06/2005 6:25 EDT 03/06/2005 6:32 EDT Allison Alarcon MD CHEMISTRY & BLOOD GAS ORDERA BLES Final Result Performing Organization Address [facility] de Phone Number [facility] [address] [place] [address] * (ABNORMAL) HEMAGRAM (03/06/2005 6:25 EDT) WBC 5.50 4.5 - 13.0 K/cmm [facility] RBC 4.62 4.50 - 5.30 M/cmm [facility] Hemoglobin 12.8(L) 13.0 - 16.0 gm/dl [facility] HCT 37.4 37.0 - 49.0 % [facility] MCV 81 78 - 98 fl [facility] MCH 27.6 pg [facility] MCHC 34.1 gm/dl [facility] PLT 346(H) 156 - 312 K/cmm [facility] RDW-CV 15.2 % [facility] Comment:Performed at [facility] [place] 03/06/2005 6:25 EDT 03/06/2005 6:32 EDT us Allison Alarcon MD HEMATOLOGY & PF4 ORDERABLES Final Result [facility] [address] [place] [address] * T4 FREE (03/06/2005 6:25 EDT) Free T4 1.0 0.8 - 1.8 ng/dl [facility] 03/06/2005 6:25 EDT 03/06/2005 6:32 EDT us Allison Alarcon MD CHEMISTRY & BLOOD GAS ORDERA BLES Final Result Performing Organization Address [facility] Co de Phone Number [facility] [address] [place] [address] * T3 FREE (03/06/2005 6:25 EDT) T3, Free 2.6 2.3 - 4.2 pg/mL [facility] 03/06/2005 6:25 EDT 03/06/2005 6:32 EDT us Allison Alarcon MD CHEMISTRY & BLOOD GAS ORDERA BLES Final Result Performing Organization Address City/[facility] Co de Phone Number [facility] [address] [place] [address] * CREATININE (03/06/2005 6:25 EDT) Creatinine 0.6 0.6 - 1.2 mg/dl [facility] Comment:Performed at [facility] [place] 03/06/2005 6:25 EDT 03/06/2005 6:32 EDT Allison Alarcon MD HISTORICAL LAB FOR SQ LOAD F inal Result Performing Organization Address [facility] de Phone Number [facility] [address] [place] [address] * (ABNORMAL) BUN (03/06/2005 6:25 EDT) BUN 7(L) 8 - 21 mg/dl [facility] Comment:Performed at [place], [place] 03/06/2005 6:25 EDT 03/06/2005 6:32 EDT us Allison Alarcon MD CHEMISTRY & BLOOD GAS ORDERA BLES Final Result Performing Organization Address [facility] de Phone Number [facility] [address] [place] [address] * (ABNORMAL) AST (03/06/2005 6:25 EDT) AST 155(H) 16 - 38 U/L [facility] Comment:Performed at [place], [place] 03/06/2005 6:25 EDT 03/06/2005 6:32 EDT us Allison Alarcon MD CHEMISTRY & BLOOD GAS ORDERA BLES Final Result Performing Organization Address [facility] de Phone Number [facility] [address] [place] [address] * (ABNORMAL) ALT (03/06/2005 6:25 EDT) ALT 397(H) 10 - 45 U/L [facility] Comment:Performed at [place], [place] 03/06/2005 6:25 EDT 03/06/2005 6:32 EDT us Allison Alarcon MD CHEMISTRY & BLOOD GAS ORDERA BLES Final Result Performing Organization Address [facility] de Phone Number [facility] [address] [place] [address] * SODIUM (03/01/2005 6:55 EDT) Sodium 140 136 - 145 mEq/L [facility] Comment:Performed at [place], [place] 03/01/2005 6:55 EDT 03/01/2005 7:29 EDT us Allison Alarcon MD CHEMISTRY & BLOOD GAS ORDERA BLES Final Result Performing Organization Address [facility] de Phone Number [facility] [address] [place] [address] * (ABNORMAL) ELECTROLYTES (02/28/2005 6:30 EDT) Sodium 143 136 - 145 mEq/L [facility] Potassium 4.2 3.6 - 5.2 mEq/L [facility] Chloride 107 96 - 110 mEq/L [facility] CO2 23(L) 24 - 32 mEq/L [facility] Comment:Performed at [place], [place] 02/28/2005 6:30 EDT 02/28/2005 8:22 EDT us Allison Alarcon MD CHEMISTRY & BLOOD GAS ORDERA BLES Final Result Performing Organization Address [facility] de Phone Number [facility] [address] [place] [address] * CREATININE (02/28/2005 6:30 EDT) Creatinine 0.7 0.6 - 1.2 mg/dl [facility] Comment:Performed at [place], [place] 02/28/2005 6:30 EDT 02/28/2005 8:22 EDT Allison Alarcon MD HISTORICAL LAB FOR SQ LOAD F inal Result Performing Organization Address [facility] Co de Phone Number [facility] [address] [place] [address] * BUN (02/28/2005 6:30 EDT) Pathologist [facility] BUN 14 8 - 21 mg/dl [facility] Comment:Performed at [place], [place] 02/28/2005 6:30 EDT 02/28/2005 8:22 EDT Allison Alarcon MD CHEMISTRY & BLOOD GAS ORDERA BLES Final Result [facility] [address] [place] [address] * SODIUM (02/26/2005 8:52 EDT) [facility] Sodium 144 136 - 145 mEq/L [facility] Comment:Performed at [place], [place] 02/26/2005 8:52 EDT 02/26/2005 8:54 EDT us Allison Alarcon MD CHEMISTRY & BLOOD GAS ORDERA BLES Final Result [facility] [address] [place] [address] * HEPATITIS C ANTIBODY (02/26/2005 8:52 EDT) [facility] Hepatitis C Ab Neg [facility] 02/26/2005 8:52 EDT 02/26/2005 8:54 EDT us Allison Alarcon MD CHEMISTRY & BLOOD GAS ORDERA BLES Final Result [facility] [address] [place] [address] * HEPATITIS B SURFACE ANTIBODY (02/26/2005 8:52 EDT) Pathologist [facility] Hepatitis B Surface Ab Indeterminate - consider retesting or reimmunization. [facility] 02/26/2005 8:52 EDT 02/26/2005 8:54 EDT us Allison Alarcon MD CHEMISTRY & BLOOD GAS ORDERA BLES Final Result Performing Organization Address [facility]/ZIP Co de Phone Number [facility] [address] [place] [address] * HEPATITIS A TOTAL ANTIBODY (02/26/2005 8:52 EDT) Hep A Antibody Neg [facility] 02/26/2005 8:52 EDT 02/26/2005 8:54 EDT us Allison Alarcon MD CHEMISTRY & BLOOD GAS ORDERA BLES Final Result Performing Organization Address [facility]/ZIP Co de Phone Number [facility] [address] [place] [address] * BUN (02/26/2005 8:52 EDT) Pathologist [facility] BUN 14 8 - 21 mg/dl [facility] Comment:Performed at [place], [place] 02/26/2005 8:52 EDT 02/26/2005 8:54 EDT us Allison Alarcon MD CHEMISTRY & BLOOD GAS ORDERA BLES Final Result Performing Organization Address [facility] de Phone Number [facility] [address] [place] [address] * (ABNORMAL) AST (02/26/2005 8:52 EDT) Pathologist [facility] AST 88(H) 16 - 38 U/L [facility] Comment:Performed at [facility] [employer] [place], [place] 02/26/2005 8:52 EDT 02/26/2005 8:54 EDT us Allison Alarcon MD CHEMISTRY & BLOOD GAS ORDERA BLES Final Result Performing Organization Address [facility] Co de Phone Number [facility] [address] [place] [address] * (ABNORMAL) ALT (02/26/2005 8:52 EDT) ALT 274(H) 10 - 45 U/L [facility] Comment:Performed at [place], [place] 02/26/2005 8:52 EDT 02/26/2005 8:54 EDT Allison Alarcon MD CHEMISTRY & BLOOD GAS ORDERA BLES Final Result Performing Organization Address [facility] de Phone Number [facility] [address] [place] [address] * ALKALINE PHOSPHATASE (02/26/2005 8:52 EDT) Pathologist [facility] Total Alkaline Phosphatase 227 130 - 525 U/L [facility] Comment:Performed at [place], [place] 02/26/2005 8:52 EDT 02/26/2005 8:54 EDT Allison Alarcon MD CHEMISTRY & BLOOD GAS ORDERA BLES Final Result Performing Organization Address [facility] de Phone Number [facility] [address] [place] [address] * ALBUMIN (02/26/2005 8:52 EDT) Pathologist [facility] Albumin 4.6 3.0 - 5.5 g/dl [facility] Comment:Performed at [place], [place] 02/26/2005 8:52 EDT 02/26/2005 8:54 EDT Allison Alarcon MD CHEMISTRY & BLOOD GAS ORDERA BLES Final Result Performing Organization Address [facility] de Phone Number [facility] [address] [place] [address] * (ABNORMAL) SODIUM (02/24/2005 10:40 EDT) Pathologist [facility] Sodium 135(L) 136 - 145 mEq/L [facility] Comment:Performed at [place], [place] 02/24/2005 10:4 0 EDT 02/24/2005 10:58 EDT Allison Alarcon MD CHEMISTRY & BLOOD GAS ORDERA BLES Final Result Performing Organization Address [facility] de Phone Number [facility] [address] [place] [address] * SODIUM (02/22/2005 6:00 EDT) Sodium 144 136 - 145 mEq/L [facility] Comment:Performed at [facility] [place], [place] 02/22/2005 6:00 EDT 02/22/2005 6:53 EDT Allison Alarcon MD CHEMISTRY & BLOOD GAS ORDERA BLES Final Result Performing Organization Address [facility] de Phone Number [facility] [address] [place] [address] * (ABNORMAL) SODIUM (02/21/2005 10:22 EDT) Sodium 154(H) 136 - 145 mEq/L [facility] Comment: BY F.STrena Performed at [place], [place] 02/21/2005 10:2 2 EDT 02/21/2005 10:24 EDT us Allison Alarcon MD CHEMISTRY & BLOOD GAS ORDERA BLES Final Result Performing Organization Address [facility] de Phone Number [facility] [address] [place] [address] * (ABNORMAL) SODIUM (02/20/2005 6:00 EDT) Sodium 153(H) 136 - 145 mEq/L [facility] Comment: Sample retested, result confirmed Performed at [place], [place] 02/20/2005 6:00 EDT 02/20/2005 6:37 EDT Allison Alarcon MD CHEMISTRY & BLOOD GAS ORDERA BLES Final Result Performing Organization Address [facility] Co de Phone Number [facility] [address] [place] [address] * SODIUM (02/18/2005 8:06 EDT) Sodium 139 136 - 145 mEq/L [facility] Comment:Performed at [facility] [place], [place] 02/18/2005 8:06 EDT 02/18/2005 8:08 EDT Allison Alarcon MD CHEMISTRY & BLOOD GAS ORDERA BLES Final Result Performing Organization Address [facility]/ZIP Co de Phone Number [facility] [address] [place] [address] * (ABNORMAL) SODIUM (02/17/2005 6:20 EDT) Sodium 149(H) 136 - 145 mEq/L [facility] 02/17/2005 6:20 EDT 02/17/2005 6:45 EDT us Allison Alarcon MD CHEMISTRY & BLOOD GAS ORDERA BLES Final Result Performing Organization Address [facility] Co de Phone Number [facility] [address] [place] [address] * (ABNORMAL) AST (02/17/2005 6:20 EDT) AST 176(H) 16 - 38 U/L [facility] 02/17/2005 6:20 EDT 02/17/2005 6:45 EDT us Allison Alarcon MD CHEMISTRY & BLOOD GAS ORDERA BLES Final Result Performing Organization Address City/[facility]/ZIP Co de Phone Number [facility] [address] [place] [address] * (ABNORMAL) ALT (02/17/2005 6:20 EDT) ALT 338(H) 10 - 45 U/L [facility] 02/17/2005 6:20 EDT 02/17/2005 6:45 EDT us Allison Alarcon MD CHEMISTRY & BLOOD GAS ORDERA BLES Final Result Performing Organization Address [facility] Co de Phone Number [facility] [address] [place] [address] * (ABNORMAL) SODIUM (02/16/2005 6:00 EDT) Sodium 154(H) 136 - 145 mEq/L [facility] Comment:Performed at [place], [place] 02/16/2005 6:00 EDT 02/16/2005 7:48 EDT us Allison Alarcon MD CHEMISTRY & BLOOD GAS ORDERA BLES Final Result Performing Organization Address [facility] de Phone Number [facility] [address] [place] [address] * (ABNORMAL) SODIUM (02/15/2005 12:52 EDT) Sodium 155(H) 136 - 145 mEq/L [facility] Comment:Performed at [place], [place] 02/15/2005 12:5 2 EDT 02/15/2005 12:54 EDT us Allison Alarcon MD CHEMISTRY & BLOOD GAS ORDERA BLES Final Result Performing Organization Address [facility] de Phone Number [facility] [address] [place] [address] * UA REFLEX (02/15/2005 10:17 EDT) UA Billing Microscopic not indicated. [facility] 02/15/2005 10:1 7 EDT 02/15/2005 10:31 EDT us Allison Alarcon MD URINALYSIS ORDERABLES Final Result Performing Organization Address [facility] Co de Phone Number [facility] [address] [place] [address] * URINALYSIS (02/15/2005 10:17 EDT) Color, UA [facility] Clarity, UA [facility] Glucose, UA NORM [facility] Bilirubin, UA NEG [facility] Ketones, UA NEG [facility] Specific [employer], Urine 1.005 - 1.02 [facility] [...] URINALYSIS ORDERABLES Final Result Performing Organization Address [facility] de Phone Number [facility] [address] [place] [address] * URINALYSIS (02/15/2005 10:17 EDT) Color, UA Yellow [facility] Clarity, UA Clear [facility] Glucose, UA Norm NORM [facility] Bilirubin, UA Neg [facility]G [facility] Ketones, UA Neg NEG [facility] Specific [employer], Urine 1.010 1.005 - 1.02 [facility] [...] URINALYSIS ORDERABLES Final Result Performing Organization Address [facility] de Phone Number [facility] [address] [place] [address] * (ABNORMAL) PHOSPHORUS (02/15/2005 6:20 EDT) Phosphorus 6.2(H) 2.9 - 5.4 mg/dl [facility] Comment:Performed at [place], [place] 02/15/2005 6:20 EDT 02/15/2005 6:34 EDT Allison Alarcon MD CHEMISTRY & BLOOD GAS ORDERA BLES Final Result Performing Organization Address [facility] de Phone Number [facility] [address] [place] [address] * PREALBUMIN (02/15/2005 6:20 EDT) Prealbumin 34 mg/dl [facility] Comment:Slightly lipemic 02/15/2005 6:20 EDT 02/15/2005 6:34 EDT Allison Alarcon MD CHEMISTRY & BLOOD GAS ORDERA BLES Final Result Performing Organization Address [facility] Phone Number [facility] [address] [place] [address] * (ABNORMAL) SODIUM (02/15/2005 6:20 EDT) Sodium 158(HH) 136 - 145 mEq/L [facility] Comment: Sample retested, result confirmed Performed at [place], [place] 02/15/2005 6:20 EDT 02/15/2005 6:34 EDT Allison Alarcon MD CHEMISTRY & BLOOD GAS ORDERA BLES Final Result Performing Organization Address [facility] de Phone Number [facility] [address] [place] [address] * MAGNESIUM (02/15/2005 6:20 EDT) Magnesium 2.2 1.7 - 2.8 mg/dl [facility] Comment:Performed at [place], [place] 02/15/2005 6:20 EDT 02/15/2005 6:34 EDT Allison Alarcon MD CHEMISTRY & BLOOD GAS ORDERA BLES Final Result Performing Organization Address [facility] Co de Phone Number [facility] [address] [place] [address] * (ABNORMAL) LIPID PROFILE (INCLUDES CHOLESTEROL, TRIGLYCERIDES, HDL, LDL) (02/15/2005 6:20 EDT) Cholesterol 283 mg/dl [facility] Comment: Desirable:<200 Borderline:200-239 High Risk:>[id number] Sample retested, result confirmed Triglycerides 958(H) 34 - 165 mg/dl [facility] HDL 39 mg/dl [facility] Comment: Highly Desirable:>60 Desirable:35-60 High Risk:<35 LDL, Calculated Triglyceride greater than 400 mg/dl, LDL calculation invalid. Desirable:<130 Borderline:130- 159 High Risk:>[id number] mg/dl [facility] Chol/HDL Ratio 7.3 [facility] Fasting? Unknown [facility] [place] [place] [facility] 02/15/2005 6:20 EDT 02/15/2005 6:34 EDT us Allison Alarcon MD CHEMISTRY & BLOOD GAS ORDERA BLES Final Result Performing Organization Address [facility] de Phone Number [facility] [address] [place] [address] * CREATININE (02/15/2005 6:20 EDT) Creatinine 0.8 0.6 - 1.2 mg/dl [facility] Comment:Performed at [facility] [place] 02/15/2005 6:20 EDT 02/15/2005 6:34 EDT Allison Alarcon MD HISTORICAL LAB FOR SQ LOAD F inal Result Performing Organization Address [facility] Co de Phone Number [facility] [address] [place] [address] * BUN (02/15/2005 6:20 EDT) BUN 17 8 - 21 mg/dl [facility] Comment:Performed at [place], [place] 02/15/2005 6:20 EDT 02/15/2005 6:34 EDT us Allison Alarcon MD CHEMISTRY & BLOOD GAS ORDERA BLES Final Result Performing Organization Address [facility] Co de Phone Number [facility] [address] [place] [address] * (ABNORMAL) AST (02/15/2005 6:20 EDT) Pathologist [facility] AST 134(H) 16 - 38 U/L [facility] Comment:Performed at [place], [place] 02/15/2005 6:20 EDT 02/15/2005 6:34 EDT us Allison Alarcon MD CHEMISTRY & BLOOD GAS ORDERA BLES Final Result Performing Organization Address [facility] de Phone Number [facility] [address] [place] [address] * (ABNORMAL) ALT (02/15/2005 6:20 EDT) Pathologist [facility] ALT 391(H) 10 - 45 U/L [facility] Comment:Performed at [place], [place] 02/15/2005 6:20 EDT 02/15/2005 6:34 EDT us Allison Alarcon MD CHEMISTRY & BLOOD GAS ORDERA BLES Final Result Performing Organization Address [facility] de Phone Number [facility] [address] [place] [address] * ALKALINE PHOSPHATASE (02/15/2005 6:20 EDT) Total Alkaline Phosphatase 223 130 - 525 U/L [facility] Comment:Performed at [place], [place] 02/15/2005 6:20 EDT 02/15/2005 6:34 EDT us Allison Alarcon MD CHEMISTRY & BLOOD GAS ORDERA BLES Final Result Performing Organization Address [facility] [place] de Phone Number [facility] [address] [place] [address] * SODIUM (02/13/2005 6:25 EDT) Sodium 140 136 - 145 mEq/L [facility] Comment:Performed at [place], [place] 02/13/2005 6:25 EDT 02/13/2005 6:38 EDT us Allison Alarcon MD CHEMISTRY & BLOOD GAS ORDERA BLES Final Result Performing Organization Address [facility] de Phone Number [facility] [address] [place] [address] * (ABNORMAL) SODIUM (02/11/2005 6:50 EDT) Sodium 135(L) 136 - 145 mEq/L [facility] Comment:Performed at [place], [place] 02/11/2005 6:50 EDT 02/11/2005 7:07 EDT us Allison Alarcon MD CHEMISTRY & BLOOD GAS ORDERA BLES Final Result Performing Organization Address [facility] de Phone Number [facility] [address] [place] [address] * (ABNORMAL) SODIUM (02/08/2005 6:40 EDT) Sodium 147(H) 136 - 145 mEq/L [facility] Comment:Performed at [place], [place] 02/08/2005 6:40 EDT 02/08/2005 6:43 EDT Allison Alarcon MD CHEMISTRY & BLOOD GAS ORDERA BLES Final Result Performing Organization Address [facility] Co de Phone Number [facility] [address] [place] [address] * SODIUM (02/07/2005 6:00 EDT) Sodium 145 136 - 145 mEq/L [facility] Comment:Performed at [place], [place] 02/07/2005 6:00 EDT 02/07/2005 6:33 EDT Allison Alarcon MD CHEMISTRY & BLOOD GAS ORDERA BLES Final Result Performing Organization Address [facility] Co de Phone Number [facility] [address] [place] [address] * (ABNORMAL) SODIUM (02/06/2005 7:00 EDT) Sodium 146(H) 136 - 145 mEq/L [facility] Comment: Sample retested, result confirmed Performed at [facility], [place], [place] 02/06/2005 7:00 EDT 02/06/2005 7:03 EDT Allison Alarcon MD CHEMISTRY & BLOOD GAS ORDERA BLES Final Result Performing Organization Address [facility] de Phone Number [facility] [address] [place] [address] * (ABNORMAL) ELECTROLYTES (02/03/2005 10:00 EDT) Sodium 135(L) 136 - 145 mEq/L [facility] Potassium 5.2 3.6 - 5.2 mEq/L [facility] Chloride 96 96 - 110 mEq/L [facility] CO2 27 24 - 32 mEq/L [facility] Comment:Performed at [facility], [place], [place] 02/03/2005 10:0 0 EDT 02/03/2005 10:19 EDT us Allison Alarcon MD CHEMISTRY & BLOOD GAS ORDERA BLES Final Result Performing Organization Address [facility] Co de Phone Number [facility] [address] [place] [address] * (ABNORMAL) SODIUM (02/01/2005 11:47 EDT) Sodium 134(L) 136 - 145 mEq/L [facility] Comment:Performed at [place], [place] 02/01/2005 11:4 7 EDT 02/01/2005 11:49 EDT Allison Alarcon MD CHEMISTRY & BLOOD GAS ORDERA BLES Final Result Performing Organization Address [facility] Co de Phone Number [facility] [address] [place] [address] * PREALBUMIN (01/30/2005 6:45 EDT) Pathologist [facility] Prealbumin 25 mg/dl [facility] 01/30/2005 6:45 EDT 01/30/2005 7:18 EDT Allison Alarcon MD CHEMISTRY & BLOOD GAS ORDERA BLES Final Result Performing Organization Address [facility] de Phone Number [facility] [address] [place] [address] * ELECTROLYTES (01/30/2005 6:45 EDT) Sodium 144 136 - 145 mEq/L [facility] Potassium 4.4 3.6 - 5.2 mEq/L [facility] Chloride 105 96 - 110 mEq/L [facility] CO2 27 24 - 32 mEq/L [facility] Comment:Performed at [place], [place] 01/30/2005 6:45 EDT 01/30/2005 7:18 EDT Allison Alarcon MD CHEMISTRY & BLOOD GAS ORDERA BLES Final Result Performing Organization Address [facility] de Phone Number [facility] [address] [place] [address] * CREATININE (01/30/2005 6:45 EDT) Creatinine 0.7 0.6 - 1.2 mg/dl [facility] Comment:Performed at [facility], [place], [place] 01/30/2005 6:45 EDT 01/30/2005 7:18 EDT Allison Alarcon MD HISTORICAL LAB FOR SQ LOAD F inal Result Performing Organization Address [facility] Co de Phone Number [facility] [address] [place] [address] * BUN (01/30/2005 6:45 EDT) BUN 12 8 - 21 mg/dl [facility] Comment:Performed at [facility], [place], [place] 01/30/2005 6:45 EDT 01/30/2005 7:18 EDT Allison Alarcon MD CHEMISTRY & BLOOD GAS ORDERA BLES Final Result Performing Organization Address [facility] de Phone Number [facility] [address] [place] [address] * (ABNORMAL) SODIUM (01/28/2005 6:40 EDT) Sodium 151(H) 136 - 145 mEq/L [facility] Comment:Performed at [place], [place] 01/28/2005 6:40 EDT 01/28/2005 6:41 EDT us Allison Alarcon MD CHEMISTRY & BLOOD GAS ORDERA BLES Final Result Performing Organization Address [facility] [place]/[facility] Co de Phone Number [facility] [address] [place] [address] * (ABNORMAL) SODIUM (01/27/2005 7:10 EDT) Sodium 155(H) 136 - 145 mEq/L [facility] 01/27/2005 7:10 EDT 01/27/2005 7:40 EDT us Allison Alarcon MD CHEMISTRY & BLOOD GAS ORDERA BLES Final Result Performing Organization Address [facility] [place]/[facility] Co de Phone Number [facility] [address] [place] [address] * (ABNORMAL) SODIUM (01/26/2005 7:45 EDT) Sodium 148(H) 136 - 145 mEq/L [facility] Comment:Heparinized plasma. 01/26/2005 7:45 EDT 01/26/2005 8:47 EDT us Allison Alarcon MD CHEMISTRY & BLOOD GAS ORDERA BLES Final Result Performing Organization Address [facility] de Phone Number [facility] [address] [place] [address] * (ABNORMAL) SODIUM (01/25/2005 11:15 EDT) Sodium 152(H) 136 - 145 mEq/L [facility] Comment:Performed at [place] 01/25/2005 11:1 5 EDT 01/25/2005 11:17 EDT us Allison Alarcon MD CHEMISTRY & BLOOD GAS ORDERA BLES Final Result Performing Organization Address [facility] de Phone Number [facility] [address] [place] [address] * (ABNORMAL) SODIUM (01/25/2005 6:45 EDT) Sodium 153(H) 136 - 145 mEq/L [facility] Comment: Sample retested, result confirmed Performed at [place], [place] 01/25/2005 6:45 EDT 01/25/2005 7:13 EDT us Allison Alarcon MD CHEMISTRY & BLOOD GAS ORDERA BLES Final Result Performing Organization Address [facility] [place]/[facility] Co de Phone Number [facility] [address] [place] [address] * SODIUM (01/24/2005 6:45 EDT) Sodium 140 136 - 145 mEq/L [facility] Comment:Performed at [place], [place] 01/24/2005 6:45 EDT 01/24/2005 6:53 EDT Allison Alarcon MD CHEMISTRY & BLOOD GAS ORDERA BLES Final Result Performing Organization Address [facility] [place]/ZIP Co de Phone Number [facility] [address] [place] [address] * SODIUM (01/23/2005 6:50 EDT) Sodium 136 136 - 145 mEq/L [facility] Comment:Performed at [place], [place] 01/23/2005 6:50 EDT 01/23/2005 7:20 EDT us Allison Alarcon MD CHEMISTRY & BLOOD GAS ORDERA BLES Final Result Performing Organization Address [facility] [place]/[facility] de Phone Number [facility] [address] [place] [address] * (ABNORMAL) LIPID PROFILE (INCLUDES CHOLESTEROL, TRIGLYCERIDES, HDL, LDL) (01/23/2005 6:50 EDT) Cholesterol 154 mg/dl [facility] Comment: Desirable:<200 Borderline:200-239 High Risk:>iw=023 Triglycerides 426(H) 34 - 165 mg/dl [facility] HDL 32 mg/dl [facility] Comment: Highly Desirable:>60 Desirable:35-60 High Risk:<35 Slightly lipemic LDL, Calculated Triglyceride greater than 400 mg/dl, LDL calculation invalid. Desirable:<130 Borderline:130- 159 High Risk:>nq=242 Slightly lipemic mg/dl [facility] Chol/HDL Ratio 4.8 Slightly lipemic [facility] Fasting? Unknown Performed at [place], [place] [facility] 01/23/2005 6:50 EDT 01/23/2005 7:20 EDT Allison Alarcon MD CHEMISTRY & BLOOD GAS ORDERA BLES Final Result Performing Organization Address [facility] [place]/ZIP Co de Phone Number [facility] [address] [place] [address] * (ABNORMAL) AST (01/23/2005 6:50 EDT) AST 44(H) 16 - 38 U/L [facility] Comment:Performed at [place], [place] 01/23/2005 6:50 EDT 01/23/2005 7:20 EDT us Allison Alarcon MD CHEMISTRY & BLOOD GAS ORDERA BLES Final Result Performing Organization Address [facility] de Phone Number [facility] [address] [place] [address] * (ABNORMAL) ALT (01/23/2005 6:50 EDT) Pathologist [facility] ALT 105(H) 10 - 45 U/L [facility] Comment:Performed at [place], [place] 01/23/2005 6:50 EDT 01/23/2005 7:20 EDT us Allison Alarcon MD CHEMISTRY & BLOOD GAS ORDERA BLES Final Result Performing Organization Address [facility] de Phone Number [facility] [address] [place] [address] * ALKALINE PHOSPHATASE (01/23/2005 6:50 EDT) Pathologist [facility] Total Alkaline Phosphatase 192 130 - 525 U/L [facility] Comment:Performed at [place], [place] 01/23/2005 6:50 EDT 01/23/2005 7:20 EDT us Allison Alarcon MD CHEMISTRY & BLOOD GAS ORDERA BLES Final Result Performing Organization Address [facility] [place]/[facility] Co de Phone Number [facility] [address] [place] [address] * (ABNORMAL) SODIUM (01/22/2005 6:25 EDT) Sodium 135(L) 136 - 145 mEq/L [facility] Comment:Performed at [place], [place] 01/22/2005 6:25 EDT 01/22/2005 6:34 EDT Allison Alarcon MD CHEMISTRY & BLOOD GAS ORDERA BLES Final Result Performing Organization Address [facility] [place]/[facility] Co de Phone Number [facility] [address] [place] [address] * (ABNORMAL) SODIUM (01/21/2005 16:10 EDT) Sodium 130(L) 136 - 145 mEq/L [facility] Comment:Performed at [place], [place] 01/21/2005 16:1 0 EDT 01/21/2005 16:12 EDT Allison Alarcon MD CHEMISTRY & BLOOD GAS ORDERA BLES Final Result Performing Organization Address [facility] Co de Phone Number [facility] [address] [place] [address] * (ABNORMAL) SODIUM (01/21/2005 6:50 EDT) Sodium 129(L) 136 - 145 mEq/L [facility] Comment:Performed at [place], [place] 01/21/2005 6:50 EDT 01/21/2005 6:59 EDT Allison Alarcon MD CHEMISTRY & BLOOD GAS ORDERA BLES Final Result Performing Organization Address [facility] [place]/[facility] Co de Phone Number [facility] [address] [place] [address] * BACTERIAL CULTURE, URINE (01/20/2005 13:30 EDT) Specimen Description Urine [facility] Result No growth [facility] Report Status Final [id number] [facility] 01/20/2005 13:3 0 EDT 01/20/2005 16:43 EDT Allison Alarcon MD MICROBIOLOGY - GENERAL ORDER LYNDSEY Final Result Performing Organization Address [facility] [place]/ZIP Co de Phone Number [facility] [address] [place] [address] * (ABNORMAL) UA WITH MICROSCOPIC (01/20/2005 13:30 EDT) Color, UA Yellow [facility] Clarity, UA Clear [facility] Glucose, UA Norm NORM [facility] Bilirubin, UA Neg NEG [facility] Ketones, UA Neg NEG [facility] Specific [employer], Urine >1.030(H) 1.005 - 1.02 [facility] Blood, UA Neg NEG [facility] pH, UA 5.5 5.0 - 9.0 [facility] Protein, UA Trace(A) NEG [facility] Urobilinogen, UA Norm NORM mg/dL [facility] Nitrite, UA Neg NEG [facility] [...] URINALYSIS ORDERABLES Final Result Performing Organization Address [place]/[facility] [place]/ZIP Co de Phone Number [facility] [address] [place] [address] * UA WITH MICROSCOPIC (01/20/2005 13:30 EDT) Color, UA [facility] Clarity, UA [facility] Glucose, UA NORM [facility] Bilirubin, UA NEG [facility] Ketones, UA NEG [facility] Specific [employer], Urine 1.005 - 1.02 [facility] [...] URINALYSIS ORDERABLES Final Result Performing Organization Address [facility] [place]/[facility] Co de Phone Number [facility] [address] [place] [address] * CULTURE IF UA POSITIVE (01/20/2005 13:30 EDT) Pathologist [facility] Culture if Indicated Culture indicated by urinalysis results. [facility] 01/20/2005 13:3 0 EDT 01/20/2005 13:47 EDT Allison Alarcon MD MICROBIOLOGY - GENERAL ORDER LYNDSEY Final Result Performing Organization Address [facility] [place]/[facility] Co de Phone Number [facility] [address] [place] [address] * SODIUM (01/20/2005 6:30 EDT) Sodium 136 136 - 145 mEq/L [facility] 01/20/2005 6:30 EDT 01/20/2005 7:06 EDT us Allison Alarcon MD CHEMISTRY & BLOOD GAS ORDERA BLES Final Result Performing Organization Address [facility] [place]/[facility] Co de Phone Number [facility] [address] [place] [address] * SODIUM (01/19/2005 7:45 EDT) Sodium 143 136 - 145 mEq/L [facility] Comment: SHORT SAMPLED Performed at [place], [place] 01/19/2005 7:45 EDT 01/19/2005 7:53 EDT us Allison Alarcon MD CHEMISTRY & BLOOD GAS ORDERA BLES Final Result Performing Organization Address [facility] de Phone Number [facility] [address] [place] [address] * (ABNORMAL) SODIUM (01/18/2005 6:15 EDT) Sodium 135(L) 136 - 145 mEq/L [facility] Comment:Performed at [place], [place] 01/18/2005 6:15 EDT 01/18/2005 6:31 EDT us Allison Alarcon MD CHEMISTRY & BLOOD GAS ORDERA BLES Final Result Performing Organization Address [facility] [place] de Phone Number [facility] [address] [place] [address] * SODIUM (01/17/2005 6:45 EDT) Sodium 141 136 - 145 mEq/L [facility] Comment:Performed at [place], [place] 01/17/2005 6:45 EDT 01/17/2005 6:48 EDT us Allison Alarcon MD CHEMISTRY & BLOOD GAS ORDERA BLES Final Result Performing Organization Address [facility] [place] Co de Phone Number [facility] [address] [place] [address] * (ABNORMAL) LIPID PROFILE (INCLUDES CHOLESTEROL, TRIGLYCERIDES, HDL, LDL) (01/17/2005 6:45 EDT) Cholesterol 151 mg/dl [facility] Comment: Desirable:<200 Borderline:200-239 High Risk:>zy=617 Triglycerides 425(H) 34 - 165 mg/dl [facility] Comment:Performed at [facility] [place], [place] HDL 26 mg/dl [facility] Comment: Highly Desirable:>60 Desirable:35-60 High Risk:<35 LDL, Calculated Triglyceride greater than 400 mg/dl, LDL calculation invalid. Desirable:<130 Borderline:130- 159 High Risk:>cz=661 mg/dl [facility] Chol/HDL Ratio 5.8 [facility] Fasting? Unknown [facility] 01/17/2005 6:45 EDT 01/17/2005 6:48 EDT us Allison Alarcon MD CHEMISTRY & BLOOD GAS ORDERA BLES Final Result Performing Organization Address [facility] [place]/[facility] Co de Phone Number [facility] [address] [place] [address] * T4 FREE (01/17/2005 6:45 EDT) Free T4 1.3 0.8 - 1.8 ng/dl [facility] 01/17/2005 6:45 EDT 01/17/2005 6:48 EDT Allison Alarcon MD CHEMISTRY & BLOOD GAS ORDERA BLES Final Result Performing Organization Address [facility] [place]/[facility] Co de Phone Number [facility] [address] [place] [address] * (ABNORMAL) AST (01/17/2005 6:45 EDT) AST 49(H) 16 - 38 U/L [facility] Comment:Performed at [employer] [place], [place] 01/17/2005 6:45 EDT 01/17/2005 6:48 EDT us Allison Alarcon MD CHEMISTRY & BLOOD GAS ORDERA BLES Final Result Performing Organization Address [facility] de Phone Number [facility] [address] [place] [address] * (ABNORMAL) ALT (01/17/2005 6:45 EDT) ALT 170(H) 10 - 45 U/L [facility] Comment:Performed at [place], [place] 01/17/2005 6:45 EDT 01/17/2005 6:48 EDT us Allison Alarcon MD CHEMISTRY & BLOOD GAS ORDERA BLES Final Result Performing Organization Address [facility] Phone Number [facility] [address] [place] [address] * ALKALINE PHOSPHATASE (01/17/2005 6:45 EDT) Total Alkaline Phosphatase 149 130 - 525 U/L [facility] Comment:Performed at [place], [place] 01/17/2005 6:45 EDT 01/17/2005 6:48 EDT us Allison Alarcon MD CHEMISTRY & BLOOD GAS ORDERA BLES Final Result Performing Organization Address [facility] [place] de Phone Number [facility] [address] [place] [address] * SODIUM (01/16/2005 6:45 EDT) Sodium 137 136 - 145 mEq/L [facility] Comment:Performed at [place], [place] 01/16/2005 6:45 EDT 01/16/2005 7:16 EDT us Allison Alarcon MD CHEMISTRY & BLOOD GAS ORDERA BLES Final Result Performing Organization Address [facility] [place]/[facility] Co de Phone Number [facility] [address] [place] [address] documented in this encounter Visit Diagnoses Not on filedocumented in this encounter
--- OUTSIDE RECORDS SUMMARY | 2024-08-06 01:07 | XMS_ITS | Encounter Summary ---
Author Organization [facility] Address [address] [place] [address] Care Team Providers Care Hairmasters Manager Name Role Phone Yan Demarco MD Primary Care Provider Corin Skinner MD Primary Care Provider Akil Serrano MD Primary Care Provider [phone] Encounter Details Date Type Department Care Team (Late st Contact Info) Description 12/06/2004 Before PRISM Converted Visit (Maple) [facility] - Maple conversion [address] [place] [address] Allison Alarcon MD [address] [place] [phone] Social History Tobacco Use Types Packs/Day Years [...] - ALLISON ALARCON MD /re Voice ID: [id number] Doc ID: [id number] ir recommendations later this afternoon. PLAN: 1. Discontinue amantadine. 2. Start Ritalin give dose today then start him tomorrow morning. 3. Offer Percocet as an alternative to codeine. 4. Will flush the PICC with heparin every day to hopefully decrease clotting off. 5. Check BUN, creatinine, sodium, and free T4 tomorrow. 6. UA/C and S. - ALLISON ALARCON MD /re Voice ID: [id number] Doc ID: [id number] documented in this encounter Plan of Treatment Upcoming Encounters Date Type Department Care Team (Late st Contact Info) Description 10/01/2024 13:40 EDT Office Visit [facility] Endocrinology - [facility] [address] [place] [address] Wilder Zaidi, DO [address] [facility] [address] [place] [address] documented as of this encounter Visit Diagnoses Not on filedocumented in this encounter Care Teams Hairmasters Manager Relationship Specialty Start Date End Date Yan Demarco MD [address] [place] [address] PCP - General 08/22/09 02/20/10 Corin Skinner MD [address] [place] [phone] PCP - General 10/24/08 08/21/09 Akil Serrano MD [address] [address] [place], [place] [address] PCP - General 02/21/10 04/16/11 documented as of this encounter
--- OUTSIDE RECORDS SUMMARY | 2024-08-06 01:07 | XMS_ITS | Encounter Summary ---
Author Organization [facility] Address [address] [place] [address] Care Team Providers Care Die Keeper Name Role Phone Yan Demarco MD Primary Care Provider Corin Skinner MD Primary Care Provider Akil Serrano MD Primary Care Provider [phone] Encounter Details Date Type Department Care Team (Late st Contact Info) Description 11/27/2004 Before PRISM Converted Visit (Maple) [facility] - Maple conversion [address] [place], [place] [address] Raleigh Angelo MD [address] [id number] Social History Tobacco Use Types Packs/Day Years [...] - RALEIGH ANGELO MD / Voice ID: [id number] Doc ID: [id number] trolytes, and renal function. - ROCKY ANGELO MD / Voice ID: [id number] Doc ID: [id number] documented in this encounter Plan of Treatment Upcoming Encounters Date Type Department Care Team (Late st Contact Info) Description 10/01/2024 13:40 EDT Office Visit [facility] Endocrinology - [facility] [address] [place] [address] Wilder Zaidi, [address] [facility] [address] [place] [address] documented as of this encounter Visit Diagnoses Not on filedocumented in this encounter Care Teams Die Keeper Relationship Specialty Start Date End Date Yan Demarco MD [address] [place] [address] PCP - General 08/22/09 02/20/10 Corin Skinner MD [address] [place] [phone] PCP - General 10/24/08 08/21/09 Akil Serrano MD [address] [place] [address],[address] [id number] PCP - General 02/21/10 04/16/11 documented as of this encounter
--- OUTSIDE RECORDS SUMMARY | 2024-08-06 01:07 | XMS_ITS | Encounter Summary ---
Author Organization [facility] Address [address] [place] [address] Care Team Providers Care Director News Name Role Phone Yan Demarco MD Primary Care Provider [phone] Corin Skinner MD Primary Care Provider Akil Serrano MD Primary Care Provider [phone] Encounter Details Date Type Department Care Team (Late st Contact Info) Description 11/23/2004 Before PRISM Converted Visit (Maple) [facility] - Maple conversion [address] [place] [address] Kylie Larson MD [address] [place] [address] Social History Tobacco Use Types [...] - KYLIE LARSON MD /re Voice ID: [id number] Doc ID: [id number] n the next few days. We will continue to keep watch on his electrolyte and fluid status. I will keep in contact with Dr. Edwards as necessary. - KYLIE LARSON MD /re Voice ID: [id number] Doc ID:[id number] documented in this encounter Plan of Treatment Upcoming Encounters Date Type Department Care Team (Late st Contact Info) Description 10/01/2024 13:40 EDT Office Visit [facility] Endocrinology - [facility] [address] [place] [address] Wilder Zaidi, DO [address] [facility] [address] [place] [address] documented as of this encounter Visit Diagnoses Not on filedocumented in this encounter Care Teams Director News Relationship Specialty Start Date End Date Yan Demarco MD [address] [place] [address] PCP - General 08/22/09 02/20/10 Corin Skinner MD [address] [phone] PCP - General 10/24/08 08/21/09 Akil Serrano MD [address] [place] [address] PCP - General 02/21/10 04/16/11 documented as of this encounter
--- OUTSIDE RECORDS SUMMARY | 2024-08-06 01:07 | XMS_ITS | Encounter Summary ---
Author Organization [facility] Address [address] [place] [address] Care Team Providers Care Cupola Charger Name Role Phone Yan Demarco MD Primary Care Provider Corin Skinner MD Primary Care Provider [phone] Akil Serrano MD Primary Care Provider [phone] Encounter Details Date Type Department Care Team (Late st Contact Info) Description 11/26/2004 Before PRISM Converted Visit (Maple) [facility] - Maple conversion [address] [place] [address] Allison Alarcon MD 0 [place] [phone] Social History Tobacco Use Types Packs/Day Years [...] - ALLISON ALARCON MD /chelle Voice ID: [id number] Doc ID: [id number] blish some consistency as far as yes [...] - ALLISON ALARCON MD /chelle Voice ID: [id number] Doc ID: [id number] documented in this encounter Plan of Treatment Upcoming Encounters Date Type Department Care Team (Late st Contact Info) Description 10/01/2024 13:40 EDT Office Visit [facility] Endocrinology - [facility] [address] [place] [address] Wilder Zaidi, 62 [facility] [address] [place] [address] documented as of this encounter Visit Diagnoses Not on filedocumented in this encounter Care Teams Cupola Charger Relationship Specialty Start Date End Date Yan Demarco MD [address] [place] [address] PCP - General 08/22/09 02/20/10 Corin Skinner MD [address] [place] [phone] PCP - General 10/24/08 08/21/09 Akil Serrano MD [address] [place] [address] [address] [place] [address] PCP - General 02/21/10 04/16/11 documented as of this encounter
--- OUTSIDE RECORDS SUMMARY | 2024-08-06 01:07 | XMS_ITS | Encounter Summary ---
Author Organization [facility] Address [address] [place] [address] Care Team Providers Care Bleach Boiler Packer Name Role Phone Yan Demarco MD Primary Care Provider Corin Skinner MD Primary Care Provider Akil Serrano MD Primary Care Provider [phone] Encounter Details Date Type Department Care Team (Late st Contact Info) Description 11/29/2004 Before PRISM Converted Visit (Maple) [facility] - Maple conversion [address] [place] [address] Allison Alarcon MD 0 [place] [phone] Social History Tobacco Use Types Packs/Day Years [...] subacute rehab facility which is December, at [facility] in [place].Social work has identified there are still a [...] - ALLISON ALARCON MD / Voice ID: [id number] Doc ID: [id number] - ALLISON ALARCON MD /mh Voice ID: [id number] Doc ID: [id number] documented in this encounter Plan of Treatment Upcoming Encounters Date Type Department Care Team (Late st Contact Info) Description 10/01/2024 13:40 EDT Office Visit [facility] Endocrinology - [facility] [address] [place] [address] Wilder Zaidi, 62 [facility] [address] [place] [address] documented as of this encounter Visit Diagnoses Not on filedocumented in this encounter Care Teams Bleach Boiler Packer Relationship Specialty Start Date End Date Yan Demarco MD [address] [place] [phone] PCP - General 08/22/09 02/20/10 Corin Skinner MD [address] [place] [phone] PCP - General 10/24/08 08/21/09 Akil Serrano MD [address] [place] [address] [address] [place] [address] PCP - General 02/21/10 04/16/11 documented as of this encounter
--- OUTSIDE RECORDS SUMMARY | 2024-08-06 01:07 | XMS_ITS | Encounter Summary ---
Author Organization [facility] Address [address] [place] [address] Care Team Providers Care Associate Drafter Name Role Phone Yan Demarco MD Primary Care Provider [phone] Corin Skinner MD Primary Care Provider Akil Serrano MD Primary Care Provider [phone] Encounter Details Date Type Department Care Team (Late st Contact Info) Description 11/22/2004 Before PRISM Converted Visit (Maple) [facility] - Maple conversion [address] [place], [place] [address] [place] Angelo MD [address] [phone] Social History Tobacco Use Types Packs/Day Years [...] - RALEIGH ANGELO MD /lr Voice ID: [id number] Doc ID: [id number] stright ASSESSMENT AND PLAN: Continue program activities. Increase free water by 200 cc q.i.d. Continue monitoring of electrolytes and renal status. Continue DDAVP, hydrocortisone, and levothyroxine. - RALEIGH ANGELO MD /lr Voice ID: [id number] Doc ID: [id number] documented in this encounter Plan of Treatment Upcoming Encounters Date Type Department Care Team (Late st Contact Info) Description 10/01/2024 13:40 EDT [facility] Visit [facility] End[facility]ology - [address] [phone] Wilder Zaidi, DO 62 [facility] [address] [place] [address] documented as of this encounter Visit Diagnoses Not on filedocumented in this encounter Care Teams Associate Drafter Relationship Specialty Start Date End Date Yan Demarco MD [address] [place] [address] PCP - General 08/22/09 02/20/10 Corin Skinner MD [address] [address] PCP - General 10/24/08 08/21/09 Akil Serrano MD 74 [facility],[address] [address] PCP - General 02/21/10 04/16/11 documented as of this encounter
--- OUTSIDE RECORDS SUMMARY | 2024-08-06 01:07 | XMS_ITS | Encounter Summary ---
Author Organization [facility] Address [address] [place] [address] Care Team Providers Care Bulk Driver Name Role Phone Yan Demarco MD Primary Care Provider [phone] Corin Skinner MD Primary Care Provider Akil Serrano MD Primary Care Provider [phone] Encounter Details Date Type Department Care Team (Late st Contact Info) Description 11/30/2004 Before PRISM Converted Visit (Maple) [facility] - Maple conversion [address] [place], [place] [address] [place] Angelo MD [address] [phone] Social History Tobacco Use Types Packs/Day Years [...] - RALEIGH ANGELO MD /ss Voice ID: [id number] Doc ID: [id number] phaD: 11/30/2004 - RALEIGH ANGELO MD /ss Voice ID: [id number] Doc ID: [id number] documented in this encounter Plan of Treatment Upcoming Encounters Date Type Department Care Team (Late st Contact Info) Description 10/01/2024 13:40 EDT Office Visit [facility] Endocrinology - [facility] [address] [place], [place] [phone] Wilder Zaidi, 62 [facility] [address] [place] [address] documented as of this encounter Visit Diagnoses Not on filedocumented in this encounter Care Teams Bulk Driver Relationship Specialty Start Date End Date Yan Demarco MD [address] [place] [phone] PCP - General 08/22/09 02/20/10 Corin Skinner MD [address] [place] [phone] PCP - General 10/24/08 08/21/09 Akil Serrano MD 74 [facility] [place] [address] PCP - General 02/21/10 04/16/11 documented as of this encounter
--- OUTSIDE RECORDS SUMMARY | 2024-08-06 01:07 | XMS_ITS | Encounter Summary ---
Author Organization [facility] Address [address] [place] [address] Care Team Providers Care Digester Operator Helper Name Role Phone Yan Demarco MD Primary Care Provider [phone] Corin Skinner MD Primary Care Provider Akil Serrano MD Primary Care Provider [phone] Encounter Details Date Type Department Care Team (Late st Contact Info) Description 11/27/2004 Before PRISM Converted Visit (Maple) [facility] - Maple conversion [address] [place] [address] Allison Alarcon MD 0 [place] [phone] Social History Tobacco Use Types Packs/Day Years [...] working on being able to establish transfer [facility]. Team supports, at this point, that we are probably looking at making that transition towards the end of next week on December 07. Teams concerns reviewed in terms of moms interaction and participation and how to work with her around this. Also additional extended discussion with HOSPICE TEAM LEAD regarding best modes of communication and management [...] - ALLISON ALARCON MD /lr Voice ID: [id number] Doc ID: [id number] Continues to be appropriate for acute inpatient rehab. 2. We will trial an increase of amantadine. 3. Continue present water intake. 4. Will follow up with Dr. Edwards regarding TSH results. (Total time 45 minutes, greater than 50% direct discussion and review with mom and care coordination with team on aboveissues.) - ALLISON ALARCON MD /lr Voice ID: [id number] Doc ID: [id number] documented in this encounter Plan of Treatment Upcoming Encounters Date Type Department Care Team (Late st Contact Info) Description 10/01/2024 13:40 EDT Office Visit [facility] Endocrinology - [facility] [address] [place] [address] Dejuan Wilderritchie Valencia, 62 [facility] [address] [place] [address] documented as of this encounter Visit Diagnoses Not on filedocumented in this encounter Care Teams Digester Operator Helper Relationship Specialty Start Date End Date Yan Demarco MD [address] [place] [address] PCP - General 08/22/09 02/20/10 Corin Skinner MD [address] [place] [phone] PCP - General 10/24/08 08/21/09 Akil Serrano MD 74 [facility] 100 [place] [address] PCP - General 02/21/10 04/16/11 documented as of this encounter
--- OUTSIDE RECORDS SUMMARY | 2024-08-06 01:07 | XMS_ITS | Encounter Summary ---
Author Organization [facility] Address [address] [place] [address] Care Team Providers Care Development And Housing Director Name Role Phone Yan Demarco MD Primary Care Provider [phone] Corin Skinner MD Primary Care Provider Akil Serrano MD Primary Care Provider [phone] Encounter Details Date Type Department Care Team (Late st Contact Info) Description 12/03/2004 Before PRISM Converted Visit (Maple) [facility] - Maple conversion [address] [place] [address] Allison Alarcon MD [address] [place] [phone] Social History Tobacco Use Types Packs/Day Years [...] - ALLISON ALARCON MD /mt Voice ID: [id number] Doc ID: [id number] patient's care and care coordination with team and outside providers.) - ALLISON ALARCON MD /mt Voice ID: [id number] Doc ID: [id number] documented in this encounter Plan of Treatment Upcoming Encounters Date Type Department Care Team (Late st Contact Info) Description 10/01/2024 13:40 EDT Office Visit [facility] Endocrinology - [place] [address] [facility] [place], [place] [phone] Wilder Zaidi, DO [address] [place] [address] documented as of this encounter Visit Diagnoses Not on filedocumented in this encounter Care Teams Development And Housing Director Relationship Specialty Start Date End Date Yan Demarco MD [address] [place] [address] PCP - General 08/22/09 02/20/10 Corin Skinner MD [address] [place] [phone] PCP - General 10/24/08 08/21/09 Akil Serrano MD 74 [facility] [address] [place] [address] PCP - General 02/21/10 04/16/11 documented as of this encounter
--- OUTSIDE RECORDS SUMMARY | 2024-08-06 01:07 | XMS_ITS | Encounter Summary ---
Author Organization [facility] Address [address] [place] [address] Care Team Providers Care Powder Guard Name Role Phone Yan Demarco MD Primary Care Provider Corin Skinner MD Primary Care Provider [phone] Akil Serrano MD Primary Care Provider [phone] Encounter Details Date Type Department Care Team (Late st Contact Info) Description 12/04/2004 Before PRISM Converted Visit (Maple) [facility] - Maple conversion [address] [place] [address] Allison Alarcon MD 0 [place] [phone] Social History Tobacco Use Types Packs/Day Years [...] - ALLISON ALARCON MD /ss Voice ID: [id number] Doc ID: [id number] times of therapies. PLAN: Continue with full program. (Thirty-five minutes total time, greater than 50% direct discussion and review of patient's care with mom and care coordination with team). - ALLISON ALARCON MD /ss Voice ID: [id number] Doc ID: [id number] documented in this encounter Plan of Treatment Upcoming Encounters Date Type Department Care Team (Late st Contact Info) Description 10/01/2024 13:40 EDT Office Visit [facility] Endocrinology - [facility] 62 [place] [address] Wilder Zaidi, DO 62 [facility] [address] [place] [address] documented as of this encounter Visit Diagnoses Not on filedocumented in this encounter Care Teams Powder Guard Relationship Specialty Start Date End Date Yan Demarco MD [address] [place] [address] PCP - General 08/22/09 02/20/10 Corin Skinner MD [address] [place] [phone] PCP - General 10/24/08 08/21/09 Akil Serrano MD [address] [address] PCP - General 02/21/10 04/16/11 documented as of this encounter
--- OUTSIDE RECORDS SUMMARY | 2024-08-06 01:07 | XMS_ITS | Encounter Summary ---
Author Organization [facility] Address [address] [place] [address] Care Team Providers Care Manager Dish Name Role Phone Yan Demarco MD Primary Care Provider Corin Skinner MD Primary Care Provider Akil Serrano MD Primary Care Provider [phone] Encounter Details Date Type Department Care Team (Late st Contact Info) Description 11/29/2004 Before PRISM Converted Visit (Maple) [facility] - Maple conversion [address] [place], [place] [address] [place] Angelo MD [address] [phone] Social History Tobacco Use Types Packs/Day Years [...] - RALEIGH ANGELO MD /re Voice ID: [id number] Doc ID: [id number] oring electrolytes, now on an every other day schedule. - RALEIGH ANGELO MD /re Voice ID: [id number] Doc ID: [id number] documented in this encounter Plan of Treatment Upcoming Encounters Date Type Department Care Team (Late st Contact Info) Description 10/01/2024 13:40 EDT Office Visit [facility] Endocrinology - [facility] [address] [place] [address] Wilder Zaidi, 62 [facility] [address] [place] [address] documented as of this encounter Visit Diagnoses Not on filedocumented in this encounter Care Teams Manager Dish Relationship Specialty Start Date End Date Yan Demarco MD [address] [place] [address] PCP - General 08/22/09 02/20/10 Corin Skinner MD [address] [place] [phone] PCP - General 10/24/08 08/21/09 Akil Serrano MD [address] [place] [address] PCP - General 02/21/10 04/16/11 documented as of this encounter
--- OUTSIDE RECORDS SUMMARY | 2024-08-06 01:07 | XMS_ITS | Encounter Summary ---
Author Organization [facility] Address [address] [place] [address] Care Team Providers Care Watch Repairer Name Role Phone Yan Demarco MD Primary Care Provider [phone] Corin Skinner MD Primary Care Provider Akil Serrano MD Primary Care Provider [phone] Encounter Details Date Type Department Care Team (Late st Contact Info) Description 12/02/2004 Before PRISM Converted Visit (Maple) [facility] - Maple conversion [address] [place] [address] Allison Alarcon MD 0 [place] [phone] Social History Tobacco Use Types Packs/Day Years [...] - ALLISON ALARCON MD /re Voice ID: [id number] Doc ID: [id number] PICC line has clotted off. IV team is recommending a TPA treatment and we are waiting for that to be acquired before we can try to get his labs. Otherwise, the patient is remaining stable. - ALLISON ALARCON MD /re Voice ID: [id number] Doc ID: [id number] documented in this encounter Plan of Treatment Upcoming Encounters Date Type Department Care Team (Late st Contact Info) Description 10/01/2024 13:40 EDT Office Visit [facility] Endocrinology - [facility] 62 [place], [place] [phone] Wilder Zaidi, 62 [facility] [address] [place] [address] documented as of this encounter Visit Diagnoses Not on filedocumented in this encounter Care Teams Watch Repairer Relationship Specialty Start Date End Date Yan Demarco MD [address] [place] [address] PCP - General 08/22/09 02/20/10 Corin Skinner MD [address] [place] [address] PCP - General 10/24/08 08/21/09 Akil Serrano MD [address] [place] [address],[facility] 100 [place], [place] [address] PCP - General 02/21/10 04/16/11 documented as of this encounter
--- OUTSIDE RECORDS SUMMARY | 2024-08-06 01:08 | XMS_ITS | Encounter Summary ---
Author Organization [facility] Address [address] [place] [address] Care Team Providers Care Track Laminating Machine Tender Name Role Phone Yan Demarco MD Primary Care Provider Corin Skinner MD Primary Care Provider Akil Serrano MD Primary Care Provider [phone] Encounter Details Date Type Department Care Team (Late st Contact Info) Description 11/21/2004 Before PRISM Converted Visit (Maple) [facility] - Maple conversion [address] [place] [address] Kylie Larson MD [address] [place] [phone] Social History Tobacco Use Types Packs/Day Years [...] - KYLIE LARSON MD /re Voice ID: [id number] Doc ID: [id number] eurostimulation to try and wake him up a bit. I will review his medical course with Dr. Castañeda, who will be assisting in endocrine and electrolyte management. I will continue to keep in touch closely with Dr. Edwards, who will spearheading his endocrine management. Full evaluations will take place today to begin neuro rehab. - KYLIE LARSON MD /re Voice ID: [id number] Doc ID: [id number] documented in this encounter Plan of Treatment Upcoming Encounters Date Type Department Care Team (Late st Contact Info) Description 10/01/2024 13:40 EDT Office Visit [facility] Endocrinology - [facility] [address] [place] [address] Wilder Zaidi, DO 62 [facility] [address] [place] [address] documented as of this encounter Visit Diagnoses Not on filedocumented in this encounter Care Teams Track Laminating Machine Tender Relationship Specialty Start Date End Date Yan Demarco MD [address] [place] [address] PCP - General 08/22/09 02/20/10 Corin Skinner MD [address] [place] [phone] PCP - General 10/24/08 08/21/09 Akil Serrano MD [address] [place] [address] 100 [place] [address] PCP - General 02/21/10 04/16/11 documented as of this encounter
--- OUTSIDE RECORDS SUMMARY | 2024-08-06 01:08 | XMS_ITS | Encounter Summary ---
Author Organization [facility] Address [address] [place] [address] Care Team Providers Care Grade Checker Name Role Phone Yan Demarco MD Primary Care Provider [phone] Corin Skinner MD Primary Care Provider Akil Serrano MD Primary Care Provider [phone] Encounter Details Date Type Department Care Team (Late st Contact Info) Description 11/20/2004 Before PRISM Converted Visit (Maple) [facility] - Maple conversion [address] [place] [address] Marvin Gonzalez MD [address] [place] [address] Social History Tobacco Use Types Packs/Day [...] Office Visit [facility] Endocrinology - [facility] [address] [place] [address] Wilder Zaidi, [address] [facility] [address] [place] [address] documented as of this encounter Visit Diagnoses Not on filedocumented in this encounter Care Teams Grade Checker Relationship Specialty Start Date End Date Yan Demarco MD [address] [place] [address] PCP - General 08/22/09 02/20/10 Corin Skinner MD [address] [place] [phone] PCP - General 10/24/08 08/21/09 Akil Serrano MD [address] [address] PCP - General 02/21/10 04/16/11 documented as of this encounter
--- OUTSIDE RECORDS SUMMARY | 2024-08-06 01:08 | XMS_ITS | Encounter Summary ---
Author Organization [facility] Address [address] [place] [address] Care Team Providers Care Anesthetist Name Role Phone Yan Demarco MD Primary Care Provider Corin Skinner MD Primary Care Provider Akil Serrano MD Primary Care Provider [phone] Encounter Details Date Type Department Care Team (Late st Contact Info) Description 11/21/2004 Before PRISM Converted Visit (Maple) [facility] - Maple conversion [address] [place], [place] [address] [place] Angelo MD [address] [phone] Social History Tobacco Use Types Packs/Day Years [...] HISTORY: The patient lives withhis mother in [place], [place]. His mother has endstage renal disease [...] 11/22/2004 15:57:53 - re Voice ID - [id number] Document ID - [id number] cc: KYLIE TREJO MD, REQUESTING PHYSICIAN ADE [...] 11/22/2004 15:57:53 - re Voice ID - [id number] Document ID - [id number] cc: ADE MALLOY MD, REFERRING PHYSICIAN TOO DIAZ MD, PRIMARY CARE PHYSICIAN KYLIE TREJO MD, REQUESTING PHYSICIAN documented in this encounter Plan of Treatment Upcoming Encounters Date Type Department Care Team (Late st Contact Info) Description 10/01/2024 13:40 EDT Office Visit [facility] Endocrinology - [address] [place] [phone] Wilder Zaidi, 62 [facility] [address] [place] [address] documented as of this encounter Visit Diagnoses Not on filedocumented in this encounter Care Teams Anesthetist Relationship Specialty Start Date End Date Yan Demarco MD [address] [place] [address] PCP - General 08/22/09 02/20/10 Corin Skinner MD [address] [place] [phone] PCP - General 10/24/08 08/21/09 Akil Serrano MD [address] [facility] 100 [place] [address] PCP - General 02/21/10 04/16/11 documented as of this encounter
--- OUTSIDE RECORDS SUMMARY | 2024-08-06 01:08 | XMS_ITS | Encounter Summary ---
Author Organization [facility] Address [address] [place] [address] Care Team Providers Care Um Rn Name Role Phone Yan Demarco MD Primary Care Provider [phone] Corin Skinner MD Primary Care Provider [phone] Akil Serrano MD Primary Care Provider [phone] Encounter Details Date Type Department Care Team (Late st Contact Info) Description 11/22/2004 Before PRISM Converted Visit (Maple) [facility] - Maple conversion [address] [place] [address] Kylie Larson MD [address] [place] [address] Social History Tobacco Use Types Packs/Day Years [...] - KYLIE LARSON MD /re Voice ID: [id number] Doc ID: [id number] ssa. No other medication changes will be made today. He will continue comprehensive therapy services for neurorehabilitation. - KYLIE LARSON MD re Voice ID: [id number] Doc ID: [id number] documented in this encounter Plan of Treatment Upcoming Encounters Date Type Department Care Team (Late st Contact Info) Description 10/01/2024 13:40 EDT Office Visit [facility]ology - [facility] [address] [place] [address] Wilder Zaidi, DO 62 [facility] [address] [place] [address] documented as of this encounter Visit Diagnoses Not on filedocumented in this encounter Care Teams Um Rn Relationship Specialty Start Date End Date Yan Demarco MD [address] [place] [address] PCP - General 08/22/09 02/20/10 Corin Skinner MD [address] [address] PCP - General 10/24/08 08/21/09 Akil Serrano MD 74 [facility],[address] [address] PCP - General 02/21/10 04/16/11 documented as of this encounter
--- OUTSIDE RECORDS SUMMARY | 2024-08-06 01:08 | XMS_ITS | Encounter Summary ---
Author Organization [facility] Address [address] [place] [address] Care Team Providers Care Travel Attendants Name Role Phone Yan Demarco MD Primary Care Provider [phone] Corin Skinner MD Primary Care Provider [phone] Akil Serrano MD Primary Care Provider [phone] Encounter Details Date Type Department Care Team (Late st Contact Info) Description 11/20/2004 Before PRISM Converted Visit (Maple) [facility] - Maple conversion [address] [place] [address] Kylie Larson MD [address] [place] [id number] Social History Tobacco Use Types Packs/Day Years [...] will intermittently but inconsistently follow commands to scrap burner with the right arm. He will withdraw [...] - 11/20/2004 14:46:57 - ss Voice ID- [id number] Document ID - [id number] cc: SUMMER CHRISTIE MD, REFERRING PHYSICIAN ANCELMO MALLOY MD, REFERRING PHYSICIAN Approved by: KYLIE LARSON MD Attending Physician This document has been electronically signed by KYLIE LARSON MD on 11/21/2004 17:25:21. y. 8. Dr. Castañeda will be consulted to monitor this complicated patient along with us. - 11/20/2004 13:25:35 - KYLIE LARSON MD - 11/20/2004 14:46:57 - ss Voice ID - [id number] Document ID - [id number] cc: ADE MALLOY MD, REFERRING PHYSICIAN SUMMER CHRISTIE MD, REFERRING PHYSICIAN ANCELMO MICHAEL MD Approved by: KYLIE LARSON MD Attending Physician documented in this encounter Plan of Treatment Upcoming Encounters Date Type Department Care Team (Late st Contact Info) Description 10/01/2024 13:40 EDT Office Visit [facility] Endocrinology - [facility] [address], [place] [id number] Wilder Zaidi, [address] [facility] [address] [place] [address] documented as of this encounter Visit Diagnoses Not on filedocumented in this encounter Care Teams Travel Attendants Relationship Specialty Start Date End Date Yan Demarco MD [address] [place] [phone] PCP - General 08/22/09 02/20/10 Corin Skinner MD [address] [place] [phone] PCP - General 10/24/08 08/21/09 Akil Serrano MD [address] [facility] [address] [place] [address] PCP - General 02/21/10 04/16/11 documented as of this encounter
--- OUTSIDE RECORDS SUMMARY | 2024-08-06 01:10 | XMS_ITS | Encounter Summary ---
Author Organization [facility] Address [address] [place] [address] Care Team Providers Care Jumpbasting Collar Baster Name Role Phone Yan Demarco MD Primary Care Provider Corin Skinner MD Primary Care Provider Akil Serrano MD Primary Care Provider [phone] Encounter Details Date Type Department Care Team (Late st Contact Info) Description 10/05/2004 Results Only [facility] Pediatric Neurology - Main [place] [address] [place], [place] [id number] Ade Malloy MD [address] [place] [phone] Social History Tobacco Use Types Packs/Day Years [...] EDT Office Visit [facility] Endocrinology - [facility] [address] [place] [address] Wilder Zaidi, DO [address] [facility] [address] [place] [address] documented as of this encounter [...] MIGUEL ANGEL MASON ? Accession #: ? [id number] : ? 1990 (Age: 14) ??M ?Collect [...] cleft cyst. Clinical correlation is recommended. ??(Dr. Jimenez)/[facility] Document reviewed and electronically signed by: ? GABRIEL JACOBS MD [facility] Report Date: ??10/09/2004 12:19 By the signature [...] PATHOLOGY ORDERABLES Final Result Performing Organization Address City/State/[facility] Co de Phone Number [facility] [address] [place] [address] documented in this encounter Visit Diagnoses Not on filedocumented in this encounter Care Teams Jumpbasting Collar Baster Relationship Specialty Start Date End Date Yan Demarco MD [address] [place] [address] PCP - General 08/22/09 02/20/10 Corin Skinner MD [address] [place] [phone] PCP - General 10/24/08 08/21/09 Akil Serrano MD [address] [place] [id number] PCP - General 02/21/10 04/16/11 documented as of this encounter
--- OUTSIDE RECORDS SUMMARY | 2024-08-06 01:10 | XMS_ITS | Encounter Summary ---
Author Organization [facility] Address [address] [place] [address] Care Team Providers Care Geology Associate Name Role Phone Unavailable Primary Care Provider Unavailabl e Encounter Details Date Type Department Care Team (Late st Contact Info) Description 10/05/2004 6:16 EST - 11/20/2004 11:[address] [facility] [address] [place], [place] [id number] Jodi Parr MD [address] [facility], [address] [phone] Hilton Álvarez MD [address] [place] [phone] Discharge Disposition: [facility] Social History [...] immediate postoperative course. He was transferred to [address] on November 07, 2004. HOSPITAL COURSE: [...] of DDAVP (desmopressin) q.8h. at 0600, 1400 [id number] via his G-tube. His sodiums originally were [...] Jodi Parr MD 02/20/2005 07:31 raj Gonzalez, [facility] Gonzalez, [facility] Centerparesh Parr MD Dictated by: Marvin Gonzalez MD Jodi Parr MD - Marvin Gonzalez MD - chelle Job ID: [id number] Document ID: [id number] Re-created from ExText 01/24/2005 cc: MD Too [...] immediate postoperative course. He was transferred to [address] [facility] on November 07, 2004. HOSPITAL COURSE: [...] of DDAVP (desmopressin) q.8h. at 0600, 1400 [id number] via his G-tube. His sodiums originally were [...] Marvin Gonzalez MD - chelle Job ID: [id number] Document ID: [id number] Re-created in Priztag 01/29/2005 cc: MD Marvin Ross MD Christa M Zehle, MD Paul James Zimakas, MD documented in this encounter Discharge Disposition Disposition Code Departure Means Destination [facility] documented in this encounter Plan of Treatment Upcoming Encounters Date Type Department Care Team (Late st Contact Info) Description 10/01/2024 13:40 EDT Office Visit [facility] Endocrinology [place] [address] [place], [place] [id number] Dejuan Wilder Ayalaip, DO [address] [place] [phone] documented as of this encounter [...] ORDERABLE S Final Result Performing Organization Address [facility] de Phone Number [facility] [address] [place] [address] * SODIUM (11/19/2004 20:05 EDT) Sodium 145 136 - 145 mEq/L [facility] 11/19/2004 20:0 5 EDT 11/19/2004 20:29 EDT us Jodi Parr MD CHEMISTRY & BLOOD GAS ORDERABLE S Final Result Performing Organization Address [facility] Phone Number [facility] [address] [place] [address] * (ABNORMAL) SODIUM (11/19/2004 8:00 EDT) Sodium 147(H) 136 - 145 mEq/L [facility] Comment:Heparinized plasma. 11/19/2004 8:00 EDT 11/19/2004 8:16 EDT us Jodi Parr MD CHEMISTRY & BLOOD GAS ORDERABLE S Final Result Performing Organization Address [facility] de Phone Number [facility] [address] [place] [address] * SODIUM (11/18/2004 20:00 EDT) Sodium 144 136 - 145 mEq/L [facility] 11/18/2004 20:0 0 EDT 11/18/2004 20:41 EDT us Jodi Parr MD CHEMISTRY & BLOOD GAS ORDERABLE S Final Result Performing Organization Address [facility]/ZIP Co de Phone Number [facility] [address] [place] [address] * (ABNORMAL) SODIUM (11/18/2004 14:00 EDT) Sodium 147(H) 136 - 145 mEq/L [facility] 11/18/2004 14:0 0 EDT 11/18/2004 14:38 EDT us Jodi Parr MD CHEMISTRY & BLOOD GAS ORDERABLE S Final Result Performing Organization Address [facility] Co de Phone Number [facility] [address] [place] [address] * (ABNORMAL) SODIUM (11/18/2004 8:00 EDT) Sodium 146(H) 136 - 145 mEq/L [facility] 11/18/2004 8:00 EDT 11/18/2004 8:24 EDT us Jodi Parr MD CHEMISTRY & BLOOD GAS ORDERABLE S Final Result Performing Organization Address [facility] de Phone Number [facility] [address] [place] [address] * SODIUM (11/17/2004 20:15 EDT) Sodium 141 136 - 145 mEq/L [facility] 11/17/2004 20:1 5 EDT 11/17/2004 20:46 EDT us Jodi Parr MD CHEMISTRY & BLOOD GAS ORDERABLE S Final Result Performing Organization Address [facility] Co de Phone Number [facility] [address] [place] [address] * SODIUM (11/17/2004 12:00 EDT) Sodium 142 136 - 145 mEq/L [facility] Comment:Heparinized plasma. 11/17/2004 12:0 0 EDT 11/17/2004 12:37 EDT us Jodi Parr MD CHEMISTRY & BLOOD GAS ORDERABLE S Final Result [facility] [address] [place] [address] * SODIUM (11/17/2004 4:00 EDT) Sodium 140 136 - 145 mEq/L [facility] 11/17/2004 4:00 EDT 11/17/2004 4:01 EDT us Jodi Parr MD CHEMISTRY & BLOOD GAS ORDERABLE S Final Result [facility] [address] [place] [address] * SODIUM (11/16/2004 19:45 EDT) Sodium 141 136 - 145 mEq/L [facility] 11/16/2004 19:4 5 EDT 11/16/2004 20:20 EDT us Jodi Parr MD CHEMISTRY & BLOOD GAS ORDERABLE S Final Result Performing Organization Address City/[facility] Co de Phone Number [facility] [address] [place] [address] * SODIUM (11/16/2004 11:30 EDT) Sodium 142 136 - 145 mEq/L [facility] 11/16/2004 11:3 0 EDT 11/16/2004 12:18 EDT us Jodi Parr MD CHEMISTRY & BLOOD GAS ORDERABLE S Final Result [facility] [address] [place] [address] * SODIUM (11/16/2004 3:45 EDT) Sodium 136 136 - 145 mEq/L [facility] 11/16/2004 3:45 EDT 11/16/2004 3:52 EDT us Jodi Parr MD CHEMISTRY & BLOOD GAS ORDERABLE S Final Result [facility] [address] [place] [address] * SODIUM (11/15/2004 19:45 EDT) Sodium 139 136 - 145 mEq/L [facility] 11/15/2004 19:4 5 EDT 11/15/2004 20:00 EDT us Jodi Parr MD CHEMISTRY & BLOOD GAS ORDERABLE S Final Result Performing Organization Address City/[facility]/ZIP Co de Phone Number [facility] [address] [place] [address] * SODIUM (11/15/2004 12:00 EDT) Sodium 141 136 - 145 mEq/L [facility] 11/15/2004 12:0 0 EDT 11/15/2004 12:42 EDT us Jodi Parr MD CHEMISTRY & BLOOD GAS ORDERABLE S Final Result Performing Organization Address [facility] de Phone Number [facility] [address] [place] [address] * SODIUM (11/15/2004 4:45 EDT) Sodium 141 136 - 145 mEq/L [facility] 11/15/2004 4:45 EDT 11/15/2004 5:07 EDT us Jodi Parr MD CHEMISTRY & BLOOD GAS ORDERABLE S Final Result Performing Organization Address City/[facility]/ZIP Co de Phone Number [facility] [address] [place] [address] * SODIUM (11/14/2004 20:00 EDT) Sodium 144 136 - 145 mEq/L [facility] 11/14/2004 20:0 0 EDT 11/14/2004 20:20 EDT us Jodi Parr MD CHEMISTRY & BLOOD GAS ORDERABLE S Final Result Performing Organization Address [facility]/State/ZIP Co de Phone Number [facility] [address] [place] [address] * SODIUM (11/14/2004 11:35 EDT) Sodium 141 136 - 145 mEq/L [facility] 11/14/2004 11:3 5 EDT 11/14/2004 12:32 EDT us Jodi Parr MD CHEMISTRY & BLOOD GAS ORDERABLE S Final Result Performing Organization Address [facility] de Phone Number [facility] [address] [place] [address] * SODIUM (11/14/2004 4:00 EDT) Sodium 140 136 - 145 mEq/L [facility] Comment:Heparinized plasma. 11/14/2004 4:00 EDT 11/14/2004 4:32 EDT us Jodi Parr MD CHEMISTRY & BLOOD GAS ORDERABLE S Final Result Performing Organization Address [facility] de Phone Number [facility] [address] [place] [address] * SODIUM (11/13/2004 20:00 EDT) Sodium 142 136 - 145 mEq/L [facility] 11/13/2004 20:0 0 EDT 11/13/2004 20:59 EDT us Jodi Parr MD CHEMISTRY & BLOOD GAS ORDERABLE S Final Result Performing Organization Address [facility] de Phone Number [facility] [address] [place] [address] * SODIUM (11/13/2004 20:00 EDT) Sodium 136 - 145 mEq/L [facility] 11/13/2004 20:0 0 EDT 11/20/2004 12:48 EDT us Jodi Parr MD CHEMISTRY & BLOOD GAS ORDERABLE S Final Result [facility] [address] [place] [address] * SODIUM (11/13/2004 11:55 EDT) Sodium 141 136 - 145 mEq/L [facility] 11/13/2004 11:5 5 EDT 11/13/2004 12:31 EDT us Jodi Parr MD CHEMISTRY & BLOOD GAS ORDERABLE S Final Result Performing Organization Address [facility] Co de Phone Number [facility] [address] [place] [address] * SODIUM (11/13/2004 4:02 EDT) Sodium 141 136 - 145 mEq/L [facility] 11/13/2004 4:02 EDT 11/13/2004 4:03 EDT us Jodi Parr MD CHEMISTRY & BLOOD GAS ORDERABLE S Final Result Performing Organization Address [facility] Co de Phone Number [facility] [address] [place] [address] * SODIUM (11/12/2004 19:50 EDT) Sodium 140 136 - 145 mEq/L [facility] 11/12/2004 19:5 0 EDT 11/12/2004 21:02 EDT us Jodi Parr MD CHEMISTRY & BLOOD GAS ORDERABLE S Final Result Performing Organization Address [facility] Co de Phone Number [facility] [address] [place] [address] * PHOSPHORUS (11/12/2004 11:55 EDT) Phosphorus 4.9 2.9 - 5.4 mg/dl [facility] Comment:Heparinized plasma. 11/12/2004 11:5 5 EDT 11/12/2004 12:09 EDT Jodi Parr MD CHEMISTRY & BLOOD GAS ORDERABLE S Final Result Performing Organization Address [facility] Co de Phone Number [facility] [address] [place] [address] * PREALBUMIN (11/12/2004 11:55 EDT) Prealbumin 38 mg/dl [facility] 11/12/2004 11:5 5 EDT 11/12/2004 12:09 EDT us Jodi Parr MD CHEMISTRY & BLOOD GAS ORDERABLE S Final Result Performing Organization Address [facility] Co de Phone Number [facility] [address] [place] [address] * SODIUM (11/12/2004 11:55 EDT) Sodium 138 136 - 145 mEq/L [facility] Comment:Heparinized plasma. 11/12/2004 11:5 5 EDT 11/12/2004 12:09 EDT us Jodi Parr MD CHEMISTRY & BLOOD GAS ORDERABLE S Final Result Performing Organization Address [facility] de Phone Number [facility] [address] [place] [address] * MAGNESIUM (11/12/2004 11:55 EDT) Magnesium 2.1 1.7 - 2.8 mg/dl [facility] Comment:Heparinized plasma. 11/12/2004 11:5 5 EDT 11/12/2004 12:09 EDT us Jodi Parr MD CHEMISTRY & BLOOD GAS ORDERABLE S Final Result Performing Organization Address [facility] Co de Phone Number [facility] [address] [place] [address] * PHOSPHORUS (11/12/2004 4:00 EDT) Phosphorus 4.9 2.9 - 5.4 mg/dl [facility] 11/12/2004 4:00 EDT 11/12/2004 4:07 EDT us Jodi Parr MD CHEMISTRY & BLOOD GAS ORDERABLE S Final Result Performing Organization Address [facility] Co de Phone Number [facility] [address] [place] [address] * SODIUM (11/12/2004 4:00 EDT) Sodium 136 136 - 145 mEq/L [facility] 11/12/2004 4:00 EDT 11/12/2004 4:07 EDT us Jodi Parr MD CHEMISTRY & BLOOD GAS ORDERABLE S Final Result Performing Organization Address [facility] de Phone Number [facility] [address] [place] [address] * MAGNESIUM (11/12/2004 4:00 EDT) Magnesium 2.0 1.7 - 2.8 mg/dl [facility] 11/12/2004 4:00 EDT 11/12/2004 4:07 EDT us Jodi Parr MD CHEMISTRY & BLOOD GAS ORDERABLE S Final Result Performing Organization Address [facility] Co de Phone Number [facility] [address] [place] [address] * T4 FREE (11/12/2004 4:00 EDT) Free T4 0.8 0.8 - 1.8 ng/dl [facility] 11/12/2004 4:00 EDT 11/12/2004 4:07 EDT Jodi Parr MD CHEMISTRY & BLOOD GAS ORDERABLE S Final Result Performing Organization Address City/[facility]/ZIP Co de Phone Number [facility] [address] [place] [address] * CALCIUM (11/12/2004 4:00 EDT) Calcium 9.3 8.5 - 10.5 mg/dl [facility] Calculated Calcium 9.6 8.5 - 10.5 mg/dl [facility] 11/12/2004 4:00 EDT 11/12/2004 4:07 EDT us Jodi Parr MD CHEMISTRY & BLOOD GAS ORDERABLE S Final Result Performing Organization Address [facility] Co de Phone Number [facility] [address] [place] [address] * ALBUMIN (11/12/2004 4:00 EDT) Albumin 4.1 3.0 - 5.5 g/dl [facility] 11/12/2004 4:00 EDT 11/12/2004 4:07 EDT us Jodi Parr MD CHEMISTRY & BLOOD GAS ORDERABLE S Final Result Performing Organization Address [facility] de Phone Number [facility] [address] [place] [address] * SODIUM (11/11/2004 20:08 EDT) Sodium 137 136 - 145 mEq/L [facility] 11/11/2004 20:0 8 EDT 11/11/2004 20:13 EDT us Jodi Parr MD CHEMISTRY & BLOOD GAS ORDERABLE S Final Result Performing Organization Address [facility] Co de Phone Number [facility] [address] [place] [address] * SODIUM (11/11/2004 12:00 EDT) Sodium 137 136 - 145 mEq/L [facility] 11/11/2004 12:0 0 EDT 11/11/2004 12:28 EDT us Jodi Parr MD CHEMISTRY & BLOOD GAS ORDERABLE S Final Result Performing Organization Address [facility]/ZIP Co de Phone Number [facility] [address] [place] [address] * (ABNORMAL) SODIUM (11/11/2004 4:00 EDT) Sodium 132(L) 136 - 145 mEq/L [facility] 11/11/2004 4:00 EDT 11/11/2004 4:08 EDT us Jodi Parr MD CHEMISTRY & BLOOD GAS ORDERABLE S Final Result Performing Organization Address [facility] de Phone Number [facility] [address] [place] [address] * (ABNORMAL) SODIUM (11/10/2004 20:45 EDT) Sodium 132(L) 136 - 145 mEq/L [facility] 11/10/2004 20:4 5 EDT 11/10/2004 20:54 EDT us Jodi Parr MD CHEMISTRY & BLOOD GAS ORDERABLE S Final Result Performing Organization Address [facility] de Phone Number [facility] [address] [place] [address] * SODIUM (11/10/2004 11:55 EDT) Sodium 137 136 - 145 mEq/L [facility] 11/10/2004 11:5 5 EDT 11/10/2004 12:53 EDT us Jodi Parr MD CHEMISTRY & BLOOD GAS ORDERABLE S Final Result Performing Organization Address [facility] de Phone Number [facility] [address] [place] [address] * (ABNORMAL) SODIUM (11/10/2004 3:45 EDT) Sodium 132(L) 136 - 145 mEq/L [facility] 11/10/2004 3:45 EDT 11/10/2004 4:11 EDT us Jodi Parr MD CHEMISTRY & BLOOD GAS ORDERABLE S Final Result Performing Organization Address [facility] de Phone Number [facility] [address] [place] [address] * SODIUM (11/09/2004 20:00 EDT) Sodium 136 136 - 145 mEq/L [facility] Comment:Heparinized plasma. 11/09/2004 20:0 0 EDT 11/09/2004 20:25 EDT us Hilton Álvarez MD CHEMISTRY & BLOOD GAS ORDE RABLES Final Result Performing Organization Address [facility] Phone Number [facility] [address] [place] [address] * SODIUM (11/09/2004 13:20 EDT) Sodium 136 136 - 145 mEq/L [facility] Comment:Heparinized plasma. 11/09/2004 13:2 0 EDT 11/09/2004 13:39 EDT us Jodi Parr MD CHEMISTRY & BLOOD GAS ORDERABLE S Final Result Performing Organization Address [facility] de Phone Number [facility] [address] [place] [address] * (ABNORMAL) SODIUM (11/09/2004 4:20 EDT) Sodium 132(L) 136 - 145 mEq/L [facility] Comment:Heparinized plasma. 11/09/2004 4:20 EDT 11/09/2004 5:00 EDT us Hilton Álvarez MD CHEMISTRY & BLOOD GAS ORDE RABLES Final Result [facility] [address] [place] [address] * (ABNORMAL) SODIUM (11/08/2004 19:55 EDT) Sodium 133(L) 136 - 145 mEq/L [facility] 11/08/2004 19:5 5 EDT 11/08/2004 20:26 EDT us Hilton Álvarez MD CHEMISTRY & BLOOD GAS HERMES HANNON Final Result [facility] [address] [place] [address] * (ABNORMAL) SODIUM (11/08/2004 17:00 EDT) Sodium 133(L) 136 - 145 mEq/L [facility] 11/08/2004 17:0 0 EDT 11/08/2004 17:23 EDT us Jodi Parr MD CHEMISTRY & BLOOD GAS ORDERABLE S Final Result [facility] [address] [place] [address] * (ABNORMAL) SODIUM (11/08/2004 12:15 EDT) Sodium 131(L) 136 - 145 mEq/L [facility] 11/08/2004 12:1 5 EDT 11/08/2004 13:58 EDT us Hilton Álvarez MD CHEMISTRY & BLOOD GAS HERMES HANNON Final Result [facility] [address] [place] [address] * (ABNORMAL) SODIUM (11/08/2004 4:00 EDT) Sodium 135(L) 136 - 145 mEq/L [facility] 11/08/2004 4:00 EDT 11/08/2004 5:19 EDT us Hilton Álvarez MD CHEMISTRY & BLOOD GAS ORDE RABLES Final Result Performing Organization Address [facility]/ZIP Co de Phone Number [facility] [address] [place] [address] * (ABNORMAL) SODIUM (11/07/2004 20:29 EDT) Sodium 135(L) 136 - 145 mEq/L [facility] Comment:Heparinized plasma. 11/07/2004 20:2 9 EDT 11/07/2004 20:30 EDT us Hilton Álvarez MD CHEMISTRY & BLOOD GAS ORDE RABLES Final Result Performing Organization Address [facility] Co de Phone Number [facility] [address] [place] [address] * (ABNORMAL) SODIUM (11/07/2004 12:24 EDT) Sodium 133(L) 136 - 145 mEq/L [facility] Comment:Heparinized plasma. 11/07/2004 12:2 4 EDT 11/07/2004 12:24 EDT us Hilton Álvarez MD CHEMISTRY & BLOOD GAS ORDE RABLES Final Result Performing Organization Address [facility] Co de Phone Number [facility] [address] [place] [address] * (ABNORMAL) SODIUM (11/07/2004 6:25 EDT) Sodium 133(L) 136 - 145 mEq/L [facility] 11/07/2004 6:25 EDT 11/07/2004 6:26 EDT us Hilton Álvarez MD CHEMISTRY & BLOOD GAS ORDE RABLES Final Result Performing Organization Address [facility]/ZIP Co de Phone Number [facility] [address] [place] [address] * SODIUM (11/06/2004 22:00 EDT) Sodium 136 136 - 145 mEq/L [facility] 11/06/2004 22:0 0 EDT 11/06/2004 22:07 EDT Hilton Álvarez MD CHEMISTRY & BLOOD GAS ORDE RABLES Final Result Performing Organization Address [facility] Co de Phone Number [facility] [address] [place] [address] * SODIUM (11/06/2004 13:58 EDT) Sodium 138 136 - 145 mEq/L [facility] 11/06/2004 13:5 8 EDT 11/06/2004 13:58 EDT Hilton Álvarez MD CHEMISTRY & BLOOD GAS ORDE RABLES Final Result Performing Organization Address [facility] de Phone Number [facility] [address] [place] [address] * ELECTROLYTES (11/06/2004 9:56 EDT) Sodium 137 136 - 145 mEq/L [facility] Potassium 4.3 3.6 - 5.2 mEq/L [facility] Chloride 97 96 - 110 mEq/L [facility] CO2 30 24 - 32 mEq/L [facility] 11/06/2004 9:56 EDT 11/06/2004 9:56 EDT Hilton Álvarez MD CHEMISTRY & BLOOD GAS ORDE RABLES Final Result Performing Organization Address [facility] de Phone Number [facility] [address] [place] [address] * ELECTROLYTES (11/06/2004 3:22 EDT) Sodium 136 136 - 145 mEq/L [facility] Potassium 4.2 3.6 - 5.2 mEq/L [facility] Chloride 100 96 - 110 mEq/L [facility] CO2 30 24 - 32 mEq/L [facility] 11/06/2004 3:22 EDT 11/06/2004 3:22 EDT Hilton Álvarez MD CHEMISTRY & BLOOD GAS ORDE RABLES Final Result Performing Organization Address [facility] Co de Phone Number [facility] [address] [place] [address] * ELECTROLYTES (11/05/2004 20:50 EDT) Pathologist [facility] Sodium 137 136 - 145 mEq/L [facility] Potassium 4.2 3.6 - 5.2 mEq/L [facility] Chloride 101 96 - 110 mEq/L [facility] CO2 30 24 - 32 mEq/L [facility] 11/05/2004 20:5 0 EDT 11/05/2004 20:50 EDT Hilton Álvarez MD CHEMISTRY & BLOOD GAS [facility] Final Result Performing Organization Address [facility] de Phone Number [facility] [address] [place] [address] * CT HEAD W/WO CONTRAST (11/05/2004 19:02 [...] ORDEmerald HANNON Final Result Performing Organization Address [facility] Co de Phone Number [facility] [address] [place] [address] * SODIUM (11/05/2004 4:34 EDT) Sodium 136 - 145 mEq/L [facility] 11/05/2004 4:34 EDT 11/05/2004 4:34 EDT Hilton Álvarez MD CHEMISTRY & BLOOD GAS ORDEmerald HANNON Final Result Performing Organization Address City/[facility] Co de Phone Number [facility] [address] [place] [address] * ELECTROLYTES (11/05/2004 4:34 EDT) Sodium 142 136 - 145 mEq/L [facility] Potassium 4.0 3.6 - 5.2 mEq/L [facility] Chloride 106 96 - 110 mEq/L [facility] CO2 29 24 - 32 mEq/L [facility] 11/05/2004 4:34 EDT 11/05/2004 4:34 EDT Hilton Álvarez MD CHEMISTRY & BLOOD GAS ORDE RIDDHI Final Result Performing Organization Address [facility] de Phone Number [facility] [address] [place] [address] * (ABNORMAL) T4 FREE (11/05/2004 4:34 EDT) Free T4 0.6(L) 0.8 - 1.8 ng/dl [facility] 11/05/2004 4:34 EDT 11/05/2004 4:34 EDT Hilton Álvarez MD CHEMISTRY & BLOOD GAS ORDEmerald HANNON Final Result Performing Organization Address [facility] de Phone Number [facility] [address] [place] [address] * (ABNORMAL) ELECTROLYTES (11/04/2004 22:06 EDT) Sodium [...] ORDE RABREBECA Final Result Performing Organization Address [facility]/State/ZIP Co de Phone Number [facility] [address] [place] [address] * ELECTROLYTES (11/04/2004 14:25 EDT) Sodium 143 136 - 145 mEq/L [facility] Potassium 4.2 3.6 - 5.2 mEq/L [facility] Chloride 107 96 - 110 mEq/L [facility] CO2 28 24 - 32 mEq/L [facility] 11/04/2004 14:2 5 EDT 11/04/2004 14:26 EDT Hilton Álvarez MD CHEMISTRY & BLOOD GAS ORDE RABLES Final Result Performing Organization Address [facility] de Phone Number [facility] [address] [place] [address] * SODIUM (11/04/2004 8:25 EDT) Sodium 142 136 - 145 mEq/L [facility] 11/04/2004 8:25 EDT 11/04/2004 8:38 EDT Hilton Álvarez MD CHEMISTRY & BLOOD GAS ORDE RABLES Final Result Performing Organization Address [facility] de Phone Number [facility] [address] [place] [address] * ELECTROLYTES (11/04/2004 4:15 EDT) Sodium 143 136 - 145 mEq/L [facility] Potassium 4.2 3.6 - 5.2 mEq/L [facility] Chloride 104 96 - 110 mEq/L [facility] CO2 28 24 - 32 mEq/L [facility] 11/04/2004 4:15 EDT 11/04/2004 4:15 EDT Hilton Álvarez MD CHEMISTRY & BLOOD GAS ORDE RABLES Final Result Performing Organization Address [facility] Co de Phone Number [facility] [address] [place] [address] * SODIUM (11/04/2004 0:31 EDT) Sodium 144 136 - 145 mEq/L [facility] 11/04/2004 0:31 EDT 11/04/2004 0:31 EDT Hilton Álvarez MD CHEMISTRY & BLOOD GAS ORDE RABLES Final Result Performing Organization Address [facility] Co de Phone Number [facility] [address] [place] [address] * ELECTROLYTES (11/03/2004 20:16 EDT) Sodium 144 136 - 145 mEq/L [facility] Potassium 3.8 3.6 - 5.2 mEq/L [facility] Chloride 104 96 - 110 mEq/L [facility] CO2 29 24 - 32 mEq/L [facility] 11/03/2004 20:1 6 EDT 11/03/2004 20:16 EDT us Hilton Álvarez MD CHEMISTRY & BLOOD GAS ORDE RABLES Final Result Performing Organization Address [facility] Co de Phone Number [facility] [address] [place] [address] * SODIUM (11/03/2004 16:15 EDT) Sodium 142 136 - 145 mEq/L [facility] 11/03/2004 16:1 5 EDT 11/03/2004 16:30 EDT us Hilton Álvarez MD CHEMISTRY & BLOOD GAS ORDE RABLES Final Result Performing Organization Address City/[facility] Co de Phone Number [facility] [address] [place] [address] * ELECTROLYTES (11/03/2004 12:21 EDT) Sodium 144 136 - 145 mEq/L [facility] Potassium 3.9 3.6 - 5.2 mEq/L [facility] Chloride 106 96 - 110 mEq/L [facility] CO2 28 24 - 32 mEq/L [facility] 11/03/2004 12:2 1 EDT 11/03/2004 12:21 EDT Hilton Álvarez MD CHEMISTRY & BLOOD GAS ORDE RABLES Final Result Performing Organization Address [facility] de Phone Number [facility] [address] [place] [address] * SODIUM (11/03/2004 9:30 EDT) Sodium 145 136 - 145 mEq/L [facility] Comment:Heparinized plasma. 11/03/2004 9:30 EDT 11/03/2004 9:32 EDT Hilton Álvarez MD CHEMISTRY & BLOOD GAS ORDE RABLES Final Result Performing Organization Address [facility] Phone Number [facility] [address] [place] [address] * ELECTROLYTES (11/03/2004 3:00 EDT) Sodium 142 [...] ORDE RABLES Final Result Performing Organization Address [facility] de Phone Number [facility] [address] [place] [address] * SODIUM (11/03/2004 0:14 EDT) Sodium 144 136 - 145 mEq/L [facility] Comment:Heparinized plasma. 11/03/2004 0:14 EDT 11/03/2004 0:14 EDT Hilton Álvarez MD CHEMISTRY & BLOOD GAS ORDE RABLES Final Result Performing Organization Address [facility] de Phone Number [facility] [address] [place] [address] * (ABNORMAL) ELECTROLYTES (11/02/2004 20:02 EDT) Sodium 146(H) 136 - 145 mEq/L [facility] Potassium 4.1 3.6 - 5.2 mEq/L [facility] Chloride 107 96 - 110 mEq/L [facility] CO2 30 24 - 32 mEq/L [facility] 11/02/2004 20:0 2 EDT 11/02/2004 20:02 EDT Hilton Álvarez MD CHEMISTRY & BLOOD GAS ORDE RIDDHI Final Result Performing Organization Address [facility] de Phone Number [facility] [address] [place] [address] * SODIUM (11/02/2004 16:34 EDT) Sodium 145 136 - 145 mEq/L [facility] 11/02/2004 16:3 4 EDT 11/02/2004 16:34 EDT Hilton Álvarez MD CHEMISTRY & BLOOD GAS ORDE RABLES Final Result Performing Organization Address [facility] de Phone Number [facility] [address] [place] [address] * (ABNORMAL) ELECTROLYTES (11/02/2004 12:32 EDT) Sodium [...] ORDEmerald HANNON Final Result Performing Organization Address [facility] de Phone Number [facility] [address] [place] [address] * SODIUM (11/02/2004 8:39 EDT) Pathologist [facility] Sodium 141 136 - 145 mEq/L [facility] Comment:Heparinized plasma. 11/02/2004 8:39 EDT 11/02/2004 8:39 EDT Hilton Álvarez MD CHEMISTRY & BLOOD GAS ORDE RIDDHI Final Result Performing Organization Address [facility] de Phone Number [facility] [address] [place] [address] * (ABNORMAL) HEMAGRAM (11/02/2004 8:39 EDT) WBC [...] Final Result Performing Organization Address [facility] de Phone Number [facility] [address] [place] [address] * BACTERIAL CULTURE, BLOOD (11/02/2004 5:45 EDT) Specimen Description Blood PICC Line [facility] Result No growth [facility] Report Status Final [id number] [facility] 11/02/2004 5:45 EDT 11/02/2004 5:45 EDT Hilton Álvarez MD MICROBIOLOGY - GENERAL ORD ERABLES Final Result [facility] [address] [place] [address] * BACTERIAL CULTURE, URINE (11/02/2004 5:43 EDT) Specimen Description Urine [facility] Result Greater than 100,000 CFU/ml STAPHYLOCOCCU S COAGULASE POSITIVE (STAPHYLOCOCC US AUREUS) [facility] Report Status Final [id number] [facility] 11/02/2004 5:43 EDT 11/02/2004 [...] ORD ERABLES Final Result Performing Organization Address City/[facility]/ZIP Co de Phone Number [facility] [address] [place] [address] * (ABNORMAL) UA WITH MICROSCOPIC (11/02/2004 5:43 EDT) Color, UA Yellow [facility] Clarity, UA Cloudy [facility] Glucose, UA Norm NORM [facility] Bilirubin, UA Neg NEG [facility] Ketones, UA Neg NEG [facility] Specific Shedd, Urine 1.015 1.005 - 1.02 [facility] [...] ORDERABLES Jacquie l Result Performing Organization Address City/[facility]/ZIP Co de Phone Number [facility] [address] [place] [address] * CULTURE IF UA POSITIVE (11/02/2004 5:43 EDT) Culture if Indicated Culture indicated by urinalysis results. [facility] 11/02/2004 5:43 EDT 11/02/2004 5:43 EDT Hilton Álvarez MD MICROBIOLOGY - GENERAL ORD ERABLES Final Result Performing Organization Address City/[facility] Co de Phone Number [facility] [address] [place] [address] * ELECTROLYTES (11/02/2004 4:10 EDT) Sodium 143 136 - 145 mEq/L [facility] Potassium 4.2 3.6 - 5.2 mEq/L [facility] Chloride 104 96 - 110 mEq/L [facility] CO2 31 24 - 32 mEq/L [facility] 11/02/2004 4:10 EDT 11/02/2004 4:10 EDT us Hilton Álvarez MD CHEMISTRY & BLOOD GAS ORDE RABLES Final Result Performing Organization Address [facility] Co de Phone Number [facility] [address] [place] [address] * SODIUM (11/02/2004 0:09 EDT) Sodium 143 136 - 145 mEq/L [facility] 11/02/2004 0:09 EDT 11/02/2004 0:09 EDT Hilton Álvarez MD CHEMISTRY & BLOOD GAS ORDE RABLES Final Result Performing Organization Address [facility] Co de Phone Number [facility] [address] [place] [address] * ELECTROLYTES (11/01/2004 20:00 EDT) Sodium 142 136 - 145 mEq/L [facility] Potassium 4.2 3.6 - 5.2 mEq/L [facility] Chloride 104 96 - 110 mEq/L [facility] CO2 27 24 - 32 mEq/L [facility] 11/01/2004 20:0 0 EDT 11/01/2004 20:30 EDT us Hilton Álvarez MD CHEMISTRY & BLOOD GAS ORDE RABLES Final Result Performing Organization Address [facility] Co de Phone Number [facility] [address] [place] [address] * SODIUM (11/01/2004 16:19 EDT) Sodium 142 136 - 145 mEq/L [facility] 11/01/2004 16:1 9 EDT 11/01/2004 16:19 EDT Hilton Álvarez MD CHEMISTRY & BLOOD GAS ORDE RABLES Final Result Performing Organization Address [facility] de Phone Number [facility] [address] [place] [address] * SODIUM (11/01/2004 12:28 EDT) Sodium 143 136 - 145 mEq/L [facility] Comment:Heparinized plasma. 11/01/2004 12:2 8 EDT 11/01/2004 12:28 EDT Hilton Álvarez MD CHEMISTRY & BLOOD GAS ORDE RABLES Final Result Performing Organization Address [facility] de Phone Number [facility] [address] [place] [address] * POTASSIUM (11/01/2004 12:28 EDT) Potassium 4.6 3.6 - 5.2 mEq/L [facility] Comment:Heparinized plasma. 11/01/2004 12:2 8 EDT 11/01/2004 12:28 EDT us Hilton Álvarez MD CHEMISTRY & BLOOD GAS ORDE RABLES Final Result Performing Organization Address [facility] Co de Phone Number [facility] [address] [place] [address] * CO2 (11/01/2004 12:28 EDT) CO2 26 24 - 32 mEq/L [facility] Comment:Heparinized plasma. 11/01/2004 12:2 8 EDT 11/01/2004 12:28 EDT us Hilton Álvarez MD CHEMISTRY & BLOOD GAS ORDE RABLES Final Result Performing Organization Address [facility] Co de Phone Number [facility] [address] [place] [address] * CHLORIDE (11/01/2004 12:28 EDT) Chloride 107 96 - 110 mEq/L [facility] Comment:Heparinized plasma. 11/01/2004 12:2 8 EDT 11/01/2004 12:28 EDT us Hilton Álvarez MD CHEMISTRY & BLOOD GAS ORDE RABLES Final Result Performing Organization Address [facility] de Phone Number [facility] [address] [place] [address] * TESTS ADDED BY PHONE (11/01/2004 12:28 EDT) Tests to be added STAT K,CL,CO2 [facility] 11/01/2004 12:2 8 EDT 11/01/2004 12:28 EDT us Hilton Álvarez MD CHEMISTRY & BLOOD GAS ORDE RABLES Final Result Performing Organization Address [facility] de Phone Number [facility] [address] [place] [address] * SODIUM (11/01/2004 8:26 EDT) Sodium 143 136 - 145 mEq/L [facility] Comment:Heparinized plasma. 11/01/2004 8:26 EDT 11/01/2004 8:26 EDT us Hilton Álvarez MD CHEMISTRY & BLOOD GAS ORDE RABLES Final Result Performing Organization Address [facility] de Phone Number [facility] [address] [place] [address] * PHENYTOIN (11/01/2004 4:18 EDT) Phenytoin 11.1 [...] ORDE RABLES Final Result Performing Organization Address [facility] Phone Number [facility] [address] [place] [address] * ELECTROLYTES (11/01/2004 4:18 EDT) Sodium 141 [...] ORDE RABLES Final Result Performing Organization Address [facility] Co de Phone Number [facility] [address] [place] [address] * SODIUM (11/01/2004 2:27 EDT) Sodium 145 136 - 145 mEq/L [facility] Comment:Heparinized plasma. 11/01/2004 2:27 EDT 11/01/2004 2:27 EDT us Hilton Álvarez MD CHEMISTRY & BLOOD GAS ORDE RABLES Final Result Performing Organization Address [facility] de Phone Number [facility] [address] [place] [address] * ELECTROLYTES (11/01/2004 0:10 EDT) Sodium 143 [...] ORDE RABLES Final Result Performing Organization Address [facility] de Phone Number [facility] [address] [place] [address] * SODIUM (10/31/2004 18:48 EDT) Sodium 137 136 - 145 mEq/L [facility] 10/31/2004 18:4 8 EDT 10/31/2004 18:48 EDT us Hilton Álvarez MD CHEMISTRY & BLOOD GAS ORDE RABLES Final Result Performing Organization Address [facility] de Phone Number [facility] [address] [place] [address] * (ABNORMAL) SODIUM (10/31/2004 16:29 EDT) Sodium 133(L) 136 - 145 mEq/L [facility] Comment:Heparinized plasma. 10/31/2004 16:2 9 EDT 10/31/2004 16:29 EDT us Hilton Álvarez MD CHEMISTRY & BLOOD GAS ORDE RABLES Final Result Performing Organization Address [facility] de Phone Number [facility] [address] [place] [address] * (ABNORMAL) ELECTROLYTES (10/31/2004 12:08 EDT) Sodium [...] ORDE RABREBECA Final Result Performing Organization Address [facility] Phone Number [facility] [address] [place] [address] * (ABNORMAL) SODIUM (10/31/2004 8:18 EDT) Sodium 130(L) 136 - 145 mEq/L [facility] 10/31/2004 8:18 EDT 10/31/2004 8:18 EDT Hilton Álvarez MD CHEMISTRY & BLOOD GAS ORDE RABREBECA Final Result Performing Organization Address [facility] de Phone Number [facility] [address] [place] [address] * OSMOLALITY, URINE (10/31/2004 6:28 EDT) Osmolality, Ur 723 MOS/KG [facility] 10/31/2004 6:28 EDT 10/31/2004 6:28 EDT us Hilton Álvarez MD URINALYSIS ORDERABLES Jacquie l Result Performing Organization Address [facility] Co de Phone Number [facility] [address] [place] [address] * SODIUM, URINE RANDOM (10/31/2004 6:28 EDT) Sodium, Ur 188.0 mEq/L [facility] 10/31/2004 6:28 EDT 10/31/2004 6:28 EDT Hilton Álvarez MD URINALYSIS ORDERABLES Jacquie l Result Performing Organization Address [facility] Co de Phone Number [facility] [address] [place] [address] * OSMOLALITY (10/31/2004 6:26 EDT) Pathologist [facility] Osmolality Cintia 280 MOS/KG [facility] 10/31/2004 6:26 EDT 10/31/2004 6:26 EDT Hilton Álvarez MD CHEMISTRY & BLOOD GAS ORDE RABREBECA Final Result Performing Organization Address [facility] de Phone Number [facility] [address] [place] [address] * (ABNORMAL) SODIUM (10/31/2004 6:26 EDT) Pathologist [facility] Sodium 128(L) 136 - 145 mEq/L [facility] 10/31/2004 6:26 EDT 10/31/2004 6:26 EDT Hilton Álvarez MD CHEMISTRY & BLOOD GAS ORDE RABREBECA Final Result Performing Organization Address [facility] de Phone Number [facility] [address] [place] [address] * (ABNORMAL) ELECTROLYTES (10/31/2004 4:18 EDT) Sodium 128(L) 136 - 145 mEq/L [facility] Potassium 4.3 3.6 - 5.2 mEq/L [facility] Chloride 91(L) 96 - 110 mEq/L [facility] CO2 28 24 - 32 mEq/L [facility] 10/31/2004 4:18 EDT 10/31/2004 4:18 EDT us Hilton Álvarez MD CHEMISTRY & BLOOD [facility] Final Result Performing Organization Address City/[facility]/ZIP Co de Phone Number [facility] [address] [place] [address] * (ABNORMAL) HEMAGRAM AND DIFFERENTIAL (10/31/2004 4:18 [...] ORDER LYNDSEY Final Result Performing Organization Address City/[facility]/ZIP Co de Phone Number [facility] [address] [place] [address] * (ABNORMAL) ELECTROLYTES (10/30/2004 20:33 EDT) Sodium 131(L) 136 - 145 mEq/L [facility] Potassium 4.3 3.6 - 5.2 mEq/L [facility] Chloride 94(L) 96 - 110 mEq/L [facility] CO2 29 24 - 32 mEq/L [facility] 10/30/2004 20:3 3 EDT 10/30/2004 20:33 EDT Hilton Álvarez MD CHEMISTRY & BLOOD GAS ORDE RABLES Final Result Performing Organization Address [facility]/ZIP Co de Phone Number [facility] [address] [place] [address] * (ABNORMAL) SODIUM (10/30/2004 16:02 EDT) Sodium 133(L) 136 - 145 mEq/L [facility] 10/30/2004 16:0 2 EDT 10/30/2004 16:02 EDT Hilton Álvarez MD CHEMISTRY & BLOOD GAS ORDE RABLES Final Result Performing Organization Address [facility] de Phone Number [facility] [address] [place] [address] * (ABNORMAL) ELECTROLYTES (10/30/2004 12:09 EDT) Sodium 133(L) 136 - 145 mEq/L [facility] Potassium 3.8 3.6 - 5.2 mEq/L [facility] Chloride 95(L) 96 - 110 mEq/L [facility] CO2 28 24 - 32 mEq/L [facility] 10/30/2004 12:0 9 EDT 10/30/2004 12:09 EDT Hilton Álvarez MD CHEMISTRY & BLOOD GAS ORDE RABLES Final Result Performing Organization Address City/[facility] Co de Phone Number [facility] [address] [place] [address] * (ABNORMAL) SODIUM (10/30/2004 10:28 EDT) Sodium 132(L) 136 - 145 mEq/L [facility] 10/30/2004 10:2 8 EDT 10/30/2004 10:28 EDT Hilton Álvarez MD CHEMISTRY & BLOOD GAS ORDE RABLES Final Result Performing Organization Address [facility] de Phone Number [facility] [address] [place] [address] * PHENYTOIN (10/30/2004 4:13 EDT) Phenytoin 13.3 [...] ORDE RABLES Final Result Performing Organization Address [facility] de Phone Number [facility] [address] [place] [address] * (ABNORMAL) ELECTROLYTES (10/30/2004 4:13 EDT) Sodium 132(L) 136 - 145 mEq/L [facility] Potassium 4.4 3.6 - 5.2 mEq/L [facility] Chloride 97 96 - 110 mEq/L [facility] CO2 27 24 - 32 mEq/L [facility] 10/30/2004 4:13 EDT 10/30/2004 4:13 EDT Hilton Álvarez MD CHEMISTRY & BLOOD GAS ORDE RABLES Final Result Performing Organization Address [facility] Co de Phone Number [facility] [address] [place] [address] * (ABNORMAL) HEMAGRAM AND DIFFERENTIAL (10/30/2004 4:13 [...] LYNDSEY Final Result [facility] [address] [place] [address] * (ABNORMAL) ELECTROLYTES (10/30/2004 0:11 EDT) Sodium 135(L) 136 - 145 mEq/L [facility] Potassium 3.7 3.6 - 5.2 mEq/L [facility] Chloride 97 96 - 110 mEq/L [facility] CO2 28 24 - 32 mEq/L [facility] 10/30/2004 0:11 EDT 10/30/2004 0:11 EDT Hilton Álvarez MD CHEMISTRY & BLOOD GAS ORDE RABLES Final Result Performing Organization Address [facility] Co de Phone Number [facility] [address] [place] [address] * (ABNORMAL) SODIUM (10/30/2004 0:04 EDT) Sodium 131(L) 136 - 145 mEq/L [facility] 10/30/2004 0:04 EDT 10/31/2004 0:04 EDT Hilton Álvarez MD CHEMISTRY & BLOOD GAS ORDE RABLES Final Result Performing Organization Address [facility] de Phone Number [facility] [address] [place] [address] * (ABNORMAL) SODIUM (10/29/2004 22:00 EDT) Sodium 135(L) 136 - 145 mEq/L [facility] 10/29/2004 22:0 0 EDT 10/29/2004 22:00 EDT Hilton Álvarez MD CHEMISTRY & BLOOD GAS ORDE RABLES Final Result Performing Organization Address [facility] Phone Number [facility] [address] [place] [address] * (ABNORMAL) ELECTROLYTES (10/29/2004 18:14 EDT) Sodium 134(L) 136 - 145 mEq/L [facility] Potassium 5.0 3.6 - 5.2 mEq/L [facility] Chloride 99 96 - 110 mEq/L [facility] CO2 27 24 - 32 mEq/L [facility] 10/29/2004 18:1 4 EDT 10/29/2004 18:14 EDT Hilton Álvarez MD CHEMISTRY & BLOOD GAS ORDE RABLES Final Result Performing Organization Address [facility] de Phone Number [facility] [address] [place] [address] * (ABNORMAL) ELECTROLYTES (10/29/2004 16:19 EDT) Sodium [...] ORDE RABLES Final Result Performing Organization Address [facility] de Phone Number [facility] [address] [place] [address] * (ABNORMAL) SODIUM (10/29/2004 12:59 EDT) Sodium 132(L) 136 - 145 mEq/L [facility] Comment:Heparinized plasma. 10/29/2004 12:5 9 EDT 10/29/2004 12:59 EDT Hilton Álvarez MD CHEMISTRY & BLOOD GAS ORDE RABLES Final Result Performing Organization Address [facility] de Phone Number [facility] [address] [place] [address] * (ABNORMAL) ELECTROLYTES (10/29/2004 8:16 EDT) Sodium 135(L) 136 - 145 mEq/L [facility] Potassium 4.2 3.6 - 5.2 mEq/L [facility] Chloride 98 96 - 110 mEq/L [facility] CO2 30 24 - 32 mEq/L [facility] 10/29/2004 8:16 EDT 10/29/2004 8:16 EDT Hilton Álvarez MD CHEMISTRY & BLOOD GAS ORDE RABREBECA Final Result [facility] [address] [place] [address] * (ABNORMAL) SODIUM (10/29/2004 4:11 EDT) Pathologist [facility] Sodium 135(L) 136 - 145 mEq/L [facility] 10/29/2004 4:11 EDT 10/29/2004 4:11 EDT Hilton Álvarez MD CHEMISTRY & BLOOD GAS ORDE RABLES Final Result Performing Organization Address [facility] Co de Phone Number [facility] [address] [place] [address] * (ABNORMAL) T4 FREE (10/29/2004 4:11 EDT) Free T4 0.5(L) 0.8 - 1.8 ng/dl [facility] 10/29/2004 4:11 EDT 10/29/2004 4:11 EDT Hilton Álvarez MD CHEMISTRY & BLOOD GAS ORDE RABLES Final Result Performing Organization Address City/[facility] Co de Phone Number [facility] [address] [place] [address] * (ABNORMAL) HEMAGRAM AND DIFFERENTIAL (10/29/2004 4:11 [...] LYNDSEY Final Result Performing Organization Address [facility] de Phone Number [facility] [address] [place] [address] * SODIUM (10/29/2004 4:00 EDT) Sodium 136 - 145 mEq/L [facility] 10/29/2004 4:00 EDT 11/12/2004 7:24 EDT Hilton Álvarez MD CHEMISTRY & BLOOD GAS ORDE RABREBECA Final Result Performing Organization Address [facility] Co de Phone Number [facility] [address] [place] [address] * ELECTROLYTES (10/29/2004 0:06 EDT) Sodium 136 136 - 145 mEq/L [facility] Potassium 4.6 3.6 - 5.2 mEq/L [facility] Chloride 98 96 - 110 mEq/L [facility] CO2 31 24 - 32 mEq/L [facility] 10/29/2004 0:06 EDT 10/29/2004 0:06 EDT Hilton Álvarez MD CHEMISTRY & BLOOD GAS ORDE RABLES Final Result Performing Organization Address [facility] Co de Phone Number [facility] [address] [place] [address] * SODIUM (10/28/2004 20:20 EDT) Sodium 136 136 - 145 mEq/L [facility] 10/28/2004 20:2 0 EDT 10/28/2004 20:25 EDT Hilton Álvarez MD CHEMISTRY & BLOOD GAS ORDE RABREBECA Final Result Performing Organization Address [facility] Co de Phone Number [facility] [address] [place] [address] * ELECTROLYTES (10/28/2004 16:32 EDT) Sodium 136 136 - 145 mEq/L [facility] Potassium 4.1 3.6 - 5.2 mEq/L [facility] Chloride 100 96 - 110 mEq/L [facility] CO2 27 24 - 32 mEq/L [facility] 10/28/2004 16:3 2 EDT 10/28/2004 16:37 EDT Hilton Álvarez MD CHEMISTRY & BLOOD GAS ELEAZARE RABLES Final Result Performing Organization Address [facility] de Phone Number [facility] [address] [place] [address] * SODIUM (10/28/2004 12:21 EDT) Sodium 136 136 - 145 mEq/L [facility] Comment:Heparinized plasma. 10/28/2004 12:2 1 EDT 10/28/2004 12:21 EDT Hilton Álvarez MD CHEMISTRY & BLOOD GAS ORDE RABREBECA Final Result Performing Organization Address [facility] Co de Phone Number [facility] [address] [place] [address] * (ABNORMAL) ELECTROLYTES (10/28/2004 8:53 EDT) Sodium [...] Álvarez MD CHEMISTRY & BLOOD GAS ORDE [facility] Final Result Performing Organization Address [facility] Co de Phone Number [facility] [address] [place] [address] * PHENYTOIN (10/28/2004 4:41 EDT) Phenytoin 7.0 ug/ml [facility] Calculated Phenytoin 9.7 ug/ml [facility] Comment: Calculated phenytoin is adjusted for albumin level. Phenytoin levels may be further altered by severe renal failure (CrCl<10 ml/min). Consult pharmacy for renal or therapeutic dosing questions. 10/28/2004 4:41 EDT 10/28/2004 4:41 EDT Hilton Álvarez MD CHEMISTRY & BLOOD GAS ORDE [facility] Final Result Performing Organization Address [facility] Co de Phone Number [facility] [address] [place] [address] * ELECTROLYTES (10/28/2004 4:41 EDT) Sodium 139 136 - 145 mEq/L [facility] Potassium 4.2 3.6 - 5.2 mEq/L [facility] Chloride 99 96 - 110 mEq/L [facility] CO2 25 24 - 32 mEq/L [facility] 10/28/2004 4:41 EDT 10/28/2004 4:41 EDT Hilton Álvarez MD CHEMISTRY & BLOOD GAS ORDE [facility] Final Result [facility] [address] [place] [address] * (ABNORMAL) CREATININE (10/28/2004 4:41 EDT) Pathologist [facility] Creatinine 0.5(L) 0.6 - 1.2 mg/dl [facility] 10/28/2004 4:41 EDT 10/28/2004 4:41 EDT us Hilton Álvarez MD HISTORICAL LAB FOR SQ LOAD Final Result Performing Organization Address [facility] Co de Phone Number [facility] [address] [place] [address] * (ABNORMAL) HEMAGRAM AND DIFFERENTIAL (10/28/2004 4:41 EDT) [facility] WBC 8.20 4.5 - 13.0 K/cmm [facility] [...] ORDER LYNDSEY Final Result Performing Organization Address [facility] de Phone Number [facility] [address] [place] [address] * BUN (10/28/2004 4:41 EDT) BUN 17 8 - 21 mg/dl [facility] 10/28/2004 4:41 EDT 10/28/2004 4:41 EDT Hilton Álvarez MD CHEMISTRY & BLOOD GAS ORDE RABREBECA Final Result Performing Organization Address [facility] [facility] Phone Number [facility] [address] [place] [address] * (ABNORMAL) ELECTROLYTES (10/28/2004 0:20 EDT) Sodium 134(L) 136 - 145 mEq/L [facility] Potassium 4.8 3.6 - 5.2 mEq/L [facility] Chloride 98 96 - 110 mEq/L [facility] CO2 29 24 - 32 mEq/L [facility] 10/28/2004 0:20 EDT 10/28/2004 0:42 EDT Hilton Álvarez MD CHEMISTRY & BLOOD GAS ORDE RABLES Final Result Performing Organization Address [facility] de Phone Number [facility] [address] [place] [address] * SODIUM (10/27/2004 20:52 EDT) Sodium 136 136 - 145 mEq/L [facility] Comment:Heparinized plasma. 10/27/2004 20:5 2 EDT 10/27/2004 20:52 EDT Hilton Álvarez MD CHEMISTRY & BLOOD GAS ORDE RABLES Final Result Performing Organization Address [facility] de Phone Number [facility] [address] [place] [address] * ELECTROLYTES (10/27/2004 16:02 EDT) Sodium 136 [...] ORDE RABLES Final Result Performing Organization Address [facility] de Phone Number [facility] [address] [place] [address] * (ABNORMAL) SODIUM (10/27/2004 12:49 EDT) Sodium 135(L) 136 - 145 mEq/L [facility] 10/27/2004 12:4 9 EDT 10/27/2004 12:49 EDT Hilton Álvarez MD CHEMISTRY & BLOOD GAS ORDE RABLES Final Result Performing Organization Address [facility] de Phone Number [facility] [address] [place] [address] * (ABNORMAL) ELECTROLYTES (10/27/2004 8:21 EDT) Sodium 137 136 - 145 mEq/L [facility] Potassium 3.4(L) 3.6 - 5.2 mEq/L [facility] Chloride 112(H) 96 - 110 mEq/L [facility] CO2 21(L) 24 - 32 mEq/L [facility] 10/27/2004 8:21 EDT 10/27/2004 8:21 EDT Hilton Álvarez MD CHEMISTRY & BLOOD GAS ORDE RABLES Final Result Performing Organization Address [facility] de Phone Number [facility] [address] [place] [address] * PHENYTOIN (10/27/2004 4:18 EDT) Phenytoin 10.6 [...] ORDE RABLES Final Result Performing Organization Address [facility] de Phone Number [facility] [address] [place] [address] * SODIUM (10/27/2004 4:18 EDT) Pathologist [facility] Sodium 137 136 - 145 mEq/L [facility] 10/27/2004 4:18 EDT 10/27/2004 4:18 EDT Hilton Álvarez MD CHEMISTRY & BLOOD GAS ORDE RABLES Final Result Performing Organization Address [facility] de Phone Number [facility] [address] [place] [address] * (ABNORMAL) CREATININE (10/27/2004 4:18 EDT) Creatinine 0.5(L) 0.6 - 1.2 mg/dl [facility] 10/27/2004 4:18 EDT 10/27/2004 4:18 EDT Hilton Álvarez MD HISTORICAL LAB FOR SQ LOAD Final Result [facility] [address] [place] [address] * (ABNORMAL) HEMAGRAM AND DIFFERENTIAL (10/27/2004 4:18 [...] LYNDSEY Final Result [facility] [address] [place] [address] * BUN (10/27/2004 4:18 EDT) BUN 13 8 - 21 mg/dl [facility] 10/27/2004 4:18 EDT 10/27/2004 4:18 EDT us Hilton Álvarez MD CHEMISTRY & BLOOD GAS ORDE RABLES Final Result Performing Organization Address [facility]/ZIP Co de Phone Number [facility] [address] [place] [address] * ELECTROLYTES (10/27/2004 2:28 EDT) Sodium 136 136 - 145 mEq/L [facility] Potassium 4.6 3.6 - 5.2 mEq/L [facility] Chloride 101 96 - 110 mEq/L [facility] CO2 28 24 - 32 mEq/L [facility] 10/27/2004 2:28 EDT 10/27/2004 2:28 EDT us Hilton Álvarez MD CHEMISTRY & BLOOD GAS ORDE RABLES Final Result Performing Organization Address City/[facility] Co de Phone Number [facility] [address] [place] [address] * SODIUM (10/26/2004 20:40 EDT) Sodium 138 136 - 145 mEq/L [facility] 10/26/2004 20:4 0 EDT 10/26/2004 20:52 EDT us Hilton Álvarez MD CHEMISTRY & BLOOD GAS ORDE RABLES Final Result Performing Organization Address City/[facility]/ZIP Co de Phone Number [facility] [address] [place] [address] * ELECTROLYTES (10/26/2004 16:01 EDT) Sodium 137 136 - 145 mEq/L [facility] Potassium 4.2 3.6 - 5.2 mEq/L [facility] Chloride 104 96 - 110 mEq/L [facility] CO2 27 24 - 32 mEq/L [facility] 10/26/2004 16:0 1 EDT 10/26/2004 16:01 EDT Hilton Álvarez MD CHEMISTRY & BLOOD GAS ORDE RABLES Final Result Performing Organization Address [facility] Co de Phone Number [facility] [address] [place] [address] * SODIUM (10/26/2004 12:39 EDT) Sodium 138 136 - 145 mEq/L [facility] Comment:Heparinized plasma. 10/26/2004 12:3 9 EDT 10/26/2004 12:39 EDT Hilton Álvarez MD CHEMISTRY & BLOOD GAS ORDE RABLES Final Result Performing Organization Address [facility] de Phone Number [facility] [address] [place] [address] * MAGNESIUM (10/26/2004 8:05 EDT) Magnesium 2.4 1.7 - 2.8 mg/dl [facility] Comment:Heparinized plasma. 10/26/2004 8:05 EDT 10/26/2004 8:05 EDT Hilton Álvarez MD CHEMISTRY & BLOOD GAS ORDE RABLES Final Result Performing Organization Address [facility] Co de Phone Number [facility] [address] [place] [address] * ELECTROLYTES (10/26/2004 8:05 EDT) Sodium 138 [...] ORDE RABREBECA Final Result Performing Organization Address [facility] de Phone Number [facility] [address] [place] [address] * PHENYTOIN (10/26/2004 3:53 EDT) Phenytoin 13.6 [...] ORDE RIDDHI Final Result Performing Organization Address [facility] Phone Number [facility] [address] [place] [address] * (ABNORMAL) SODIUM (10/26/2004 3:53 EDT) Sodium 134(L) 136 - 145 mEq/L [facility] Comment:Heparinized plasma. 10/26/2004 3:53 EDT 10/26/2004 3:53 EDT Hilton Álvarez MD CHEMISTRY & BLOOD GAS ORDE RABLES Final Result Performing Organization Address [facility] de Phone Number [facility] [address] [place] [address] * (ABNORMAL) CREATININE (10/26/2004 3:53 EDT) Creatinine 0.5(L) 0.6 - 1.2 mg/dl [facility] Comment:Heparinized plasma. 10/26/2004 3:53 EDT 10/26/2004 3:53 EDT us Hilton Álvarez MD HISTORICAL LAB FOR SQ LOAD Final Result Performing Organization Address [facility]/ZIP Co de Phone Number [facility] [address] [place] [address] * (ABNORMAL) HEMAGRAM AND DIFFERENTIAL (10/26/2004 3:53 EDT) Pathologist [facility] WBC 12.68 4.5 - 13.0 K/cmm [...] ORDER LYNDSEY Final Result Performing Organization Address City/[facility]/ZIP Co de Phone Number [facility] [address] [place] [address] * BUN (10/26/2004 3:53 EDT) BUN 18 8 - 21 mg/dl [facility] Comment:Heparinized plasma. 10/26/2004 3:53 EDT 10/26/2004 3:53 EDT Hilton Álvarez MD CHEMISTRY & BLOOD GAS ORDE RABLES Final Result Performing Organization Address [facility] de Phone Number [facility] [address] [place] [address] * (ABNORMAL) ELECTROLYTES (10/26/2004 0:15 EDT) Sodium 135(L) 136 - 145 mEq/L [facility] Potassium 3.8 3.6 - 5.2 mEq/L [facility] Chloride 100 96 - 110 mEq/L [facility] CO2 27 24 - 32 mEq/L [facility] 10/26/2004 0:15 EDT 10/26/2004 0:15 EDT Hilton Álvarez MD CHEMISTRY & BLOOD GAS ORDE RABLES Final Result Performing Organization Address [facility] de Phone Number [facility] [address] [place] [address] * SODIUM (10/25/2004 20:41 EDT) Sodium 139 136 - 145 mEq/L [facility] 10/25/2004 20:4 1 EDT 10/25/2004 20:41 EDT Hilton Álvarez MD CHEMISTRY & BLOOD GAS ORDE RABLES Final Result Performing Organization Address [facility] Co de Phone Number [facility] [address] [place] [address] * ELECTROLYTES (10/25/2004 17:25 EDT) Sodium 137 136 - 145 mEq/L [facility] Potassium 3.9 3.6 - 5.2 mEq/L [facility] Chloride 100 96 - 110 mEq/L [facility] CO2 28 24 - 32 mEq/L [facility] 10/25/2004 17:2 5 EDT 10/25/2004 17:27 EDT Hilton Álvarez MD CHEMISTRY & BLOOD GAS ORDE RABLES Final Result Performing Organization Address [facility] de Phone Number [facility] [address] [place] [address] * SODIUM (10/25/2004 12:15 EDT) Sodium 137 136 - 145 mEq/L [facility] Comment:Heparinized plasma. 10/25/2004 12:1 5 EDT 10/25/2004 12:32 EDT Hilton Álvarez MD CHEMISTRY & BLOOD GAS ORDE RABLES Final Result Performing Organization Address [facility] Phone Number [facility] [address] [place] [address] * ELECTROLYTES (10/25/2004 8:30 EDT) Sodium 136 [...] ORDE RABLES Final Result Performing Organization Address [facility] de Phone Number [facility] [address] [place] [address] * TOTAL BILIRUBIN (10/25/2004 4:13 EDT) Bilirubin, Total <0.5 0.0 - 1.4 mg/dl [facility] 10/25/2004 4:13 EDT 10/25/2004 4:13 EDT Hilton Álvarez MD CHEMISTRY & BLOOD GAS ORDE RABLES Final Result Performing Organization Address [facility] Co de Phone Number [facility] [address] [place] [address] * PHOSPHORUS (10/25/2004 4:13 EDT) Phosphorus 2.9 2.9 - 5.4 mg/dl [facility] 10/25/2004 4:13 EDT 10/25/2004 4:13 EDT Hilton Álvarez MD CHEMISTRY & BLOOD GAS ORDE RABLES Final Result Performing Organization Address [facility] de Phone Number [facility] [address] [place] [address] * PHENYTOIN (10/25/2004 4:13 EDT) Phenytoin 12.2 [...] ORDE RABLES Final Result Performing Organization Address [facility] Co de Phone Number [facility] [address] [place] [address] * MAGNESIUM (10/25/2004 4:13 EDT) Magnesium 1.8 1.7 - 2.8 mg/dl [facility] 10/25/2004 4:13 EDT 10/25/2004 4:13 EDT Hilton Álvarez MD CHEMISTRY & BLOOD GAS ORDE RABREBECA Final Result Performing Organization Address [facility] de Phone Number [facility] [address] [place] [address] * (ABNORMAL) ELECTROLYTES (10/25/2004 4:13 EDT) Sodium 140 136 - 145 mEq/L [facility] Potassium 3.4(L) 3.6 - 5.2 mEq/L [facility] Chloride 112(H) 96 - 110 mEq/L [facility] CO2 18(L) 24 - 32 mEq/L [facility] 10/25/2004 4:13 EDT 10/25/2004 4:13 EDT Hilton Álvarez MD CHEMISTRY & BLOOD GAS ORDE RABREBECA Final Result Performing Organization Address [facility] de Phone Number [facility] [address] [place] [address] * (ABNORMAL) CREATININE (10/25/2004 4:13 EDT) Creatinine 0.4(L) 0.6 - 1.2 mg/dl [facility] 10/25/2004 4:13 EDT 10/25/2004 4:13 EDT Hilton Álvarez MD HISTORICAL LAB FOR SQ LOAD Final Result Performing Organization Address [facility] de Phone Number [facility] [address] [place] [address] * (ABNORMAL) HEMAGRAM AND DIFFERENTIAL (10/25/2004 4:13 [...] ORDER LYNDSEY Final Result Performing Organization Address City/[facility]/ZIP Co de Phone Number [facility] [address] [place] [address] * (ABNORMAL) CALCIUM (10/25/2004 4:13 EDT) Calcium 7.1(L) 8.5 - 10.5 mg/dl [facility] Calculated Calcium 8.9 8.5 - 10.5 mg/dl [facility] 10/25/2004 4:13 EDT 10/25/2004 4:13 EDT Hilton Álvarez MD CHEMISTRY & BLOOD GAS [facility] Final Result Performing Organization Address City/[facility]/ZIP Co de Phone Number [facility] [address] [place] [address] * BUN (10/25/2004 4:13 EDT) BUN 14 8 - 21 mg/dl [facility] 10/25/2004 4:13 EDT 10/25/2004 4:13 EDT us Hilton Álvarez MD CHEMISTRY & BLOOD GAS ORDE RABLES Final Result [facility] [address] [place] [address] * (ABNORMAL) AST (10/25/2004 4:13 EDT) AST 179(H) 16 - 38 U/L [facility] 10/25/2004 4:13 EDT 10/25/2004 4:13 EDT us Hilton Álvarez MD CHEMISTRY & BLOOD GAS ORDE RABLES Final Result Performing Organization Address [facility] Co de Phone Number [facility] [address] [place] [address] * (ABNORMAL) ALT (10/25/2004 4:13 EDT) ALT 493(H) 10 - 45 U/L [facility] 10/25/2004 4:13 EDT 10/25/2004 4:13 EDT us Hilton Álvarez MD CHEMISTRY & BLOOD GAS ORDE RABLES Final Result Performing Organization Address [facility] Co de Phone Number [facility] [address] [place] [address] * (ABNORMAL) ALKALINE PHOSPHATASE (10/25/2004 4:13 EDT) Total Alkaline Phosphatase 90(L) 130 - 525 U/L [facility] 10/25/2004 4:13 EDT 10/25/2004 4:13 EDT us Hilton Álvarez MD CHEMISTRY & BLOOD GAS ORDE RABLES Final Result Performing Organization Address City/[facility]/ZIP Co de Phone Number [facility] [address] [place] [address] * (ABNORMAL) ELECTROLYTES (10/25/2004 0:07 EDT) Sodium 140 136 - 145 mEq/L [facility] Potassium 3.3(L) 3.6 - 5.2 mEq/L [facility] Chloride 110 96 - 110 mEq/L [facility] CO2 24 24 - 32 mEq/L [facility] 10/25/2004 0:07 EDT 10/25/2004 0:07 EDT Hilton Álvarez MD CHEMISTRY & BLOOD GAS ORDE RABLES Final Result Performing Organization Address City/[facility]/ZIP Co de Phone Number [facility] [address] [place] [address] * SODIUM (10/24/2004 20:14 EDT) Sodium 139 136 - 145 mEq/L [facility] 10/24/2004 20:1 4 EDT 10/24/2004 20:14 EDT Hilton Álvarez MD CHEMISTRY & BLOOD GAS ORDE RABLES Final Result Performing Organization Address City/[facility] Co de Phone Number [facility] [address] [place] [address] * PHOSPHORUS (10/24/2004 16:01 EDT) Phosphorus 2.9 2.9 - 5.4 mg/dl [facility] 10/24/2004 16:0 1 EDT 10/24/2004 16:06 EDT Hilton Álvarez MD CHEMISTRY & BLOOD GAS ORDE RABLES Final Result Performing Organization Address City/[facility] Co de Phone Number [facility] [address] [place] [address] * ELECTROLYTES (10/24/2004 16:01 EDT) Sodium 140 136 - 145 mEq/L [facility] Potassium 3.8 3.6 - 5.2 mEq/L [facility] Chloride 108 96 - 110 mEq/L [facility] CO2 27 24 - 32 mEq/L [facility] 10/24/2004 16:0 1 EDT 10/24/2004 16:06 EDT Hilton Álvarez MD CHEMISTRY & BLOOD GAS ORDE RABLES Final Result Performing Organization Address [facility] de Phone Number [facility] [address] [place] [address] * SODIUM (10/24/2004 12:05 EDT) Sodium 142 136 - 145 mEq/L [facility] 10/24/2004 12:0 5 EDT 10/24/2004 12:05 EDT Hilton Álvarez MD CHEMISTRY & BLOOD GAS ORDE RABLES Final Result Performing Organization Address [facility] de Phone Number [facility] [address] [place] [address] * (ABNORMAL) ELECTROLYTES (10/24/2004 10:36 EDT) Sodium [...] ORDE RABLES Final Result Performing Organization Address [facility] de Phone Number [facility] [address] [place] [address] * SODIUM (10/24/2004 8:01 EDT) Sodium 140 136 - 145 mEq/L [facility] 10/24/2004 8:01 EDT 10/24/2004 8:01 EDT Hilton Álvarez MD CHEMISTRY & BLOOD GAS ORDE RABLES Final Result Performing Organization Address [facility] Phone Number [facility] [address] [place] [address] * SODIUM (10/24/2004 6:07 EDT) Sodium 136 - 145 mEq/L [facility] 10/24/2004 6:07 EDT 10/24/2004 6:07 EDT Hilton Álvarez MD CHEMISTRY & BLOOD GAS ORDE RABLES Final Result Performing Organization Address [facility] Phone Number [facility] [address] [place] [address] * (ABNORMAL) ELECTROLYTES (10/24/2004 6:07 EDT) Sodium 140 136 - 145 mEq/L [facility] Comment:Heparinized plasma. Potassium 3.4(L) 3.6 - 5.2 mEq/L [facility] Comment:Heparinized plasma. Chloride 105 96 - 110 mEq/L [facility] Comment:Heparinized plasma. CO2 27 24 - 32 mEq/L [facility] Comment:Heparinized plasma. 10/24/2004 6:07 EDT 10/24/2004 6:07 EDT Hilton Álvarez MD CHEMISTRY & BLOOD GAS ORDE RABLES Final Result Performing Organization Address [facility] de Phone Number [facility] [address] [place] [address] * (ABNORMAL) PHENYTOIN (10/24/2004 4:07 EDT) Phenytoin [...] ORDE RABLES Final Result Performing Organization Address [facility] de Phone Number [facility] [address] [place] [address] * SODIUM (10/24/2004 4:07 EDT) Sodium 138 136 - 145 mEq/L [facility] Comment:Heparinized plasma. 10/24/2004 4:07 EDT 10/24/2004 4:07 EDT Hilton Álvarez MD CHEMISTRY & BLOOD GAS ORDE RABLES Final Result Performing Organization Address [facility] Phone Number [facility] [address] [place] [address] * (ABNORMAL) CREATININE (10/24/2004 4:07 EDT) Creatinine 0.5(L) 0.6 - 1.2 mg/dl [facility] Comment:Heparinized plasma. 10/24/2004 4:07 EDT 10/24/2004 4:07 EDT Hilton Álvarez MD HISTORICAL LAB FOR SQ LOAD Final Result Performing Organization Address [facility] de Phone Number [facility] [address] [place] [address] * (ABNORMAL) HEMAGRAM AND DIFFERENTIAL (10/24/2004 4:07 [...] LYNDSEY Final Result Performing Organization Address [facility] Co de Phone Number [facility] [address] [place] [address] * BUN (10/24/2004 4:07 EDT) BUN 15 8 - 21 mg/dl [facility] Comment:Heparinized plasma. 10/24/2004 4:07 EDT 10/24/2004 4:07 EDT us Hilton Álvarez MD CHEMISTRY & BLOOD GAS ORDE RABLES Final Result Performing Organization Address [facility] Co de Phone Number [facility] [address] [place] [address] * (ABNORMAL) ELECTROLYTES (10/24/2004 2:23 EDT) Sodium [...] ORDE RABLES Final Result Performing Organization Address [facility] Phone Number [facility] [address] [place] [address] * SODIUM (10/24/2004 2:12 EDT) Sodium 136 - 145 mEq/L [facility] 10/24/2004 2:12 EDT 10/24/2004 2:22 EDT Hilton Álvarez MD CHEMISTRY & BLOOD GAS ORDE RABLES Final Result Performing Organization Address [facility] Phone Number [facility] [address] [place] [address] * SODIUM (10/24/2004 0:47 EDT) Sodium 141 136 - 145 mEq/L [facility] Comment:Heparinized plasma. 10/24/2004 0:47 EDT 10/24/2004 0:47 EDT Hilton Álvarez MD CHEMISTRY & BLOOD GAS ORDE RABLES Final Result Performing Organization Address [facility] de Phone Number [facility] [address] [place] [address] * (ABNORMAL) GLUCOSE, GLUCOMETER (10/24/2004 0:12 EDT) Glucose, Fingerstick 145(H) 70 - 110 mg/dl [facility] Inventory Control Clerk ID [id number] Test Performed by Nursing Services [facility] 10/24/2004 0:12 EDT 10/25/2004 0:24 EDT Hilton Álvarez MD CHEMISTRY & BLOOD GAS ORDE RABLES Final Result Performing Organization Address [facility] de Phone Number [facility] [address] [place] [address] * (ABNORMAL) ELECTROLYTES (10/23/2004 22:07 EDT) Sodium 141 136 - 145 mEq/L [facility] Potassium 2.9(LL) 3.6 - 5.2 mEq/L [facility] Chloride 107 96 - 110 mEq/L [facility] CO2 27 24 - 32 mEq/L [facility] 10/23/2004 22:0 7 EDT 10/23/2004 22:07 EDT Hilton Álvarez MD CHEMISTRY & BLOOD GAS ORDE RABLES Final Result Performing Organization Address [facility] de Phone Number [facility] [address] [place] [address] * (ABNORMAL) SODIUM (10/23/2004 20:02 EDT) Sodium 146(H) 136 - 145 mEq/L [facility] 10/23/2004 20:0 2 EDT 10/23/2004 20:02 EDT Hilton Álvarez MD CHEMISTRY & BLOOD GAS ORDE RABLES Final Result Performing Organization Address [facility] de Phone Number [facility] [address] [place] [address] * (ABNORMAL) ELECTROLYTES (10/23/2004 17:40 EDT) Sodium 146(H) 136 - 145 mEq/L [facility] Potassium 3.2(L) 3.6 - 5.2 mEq/L [facility] Chloride 110 96 - 110 mEq/L [facility] CO2 28 24 - 32 mEq/L [facility] 10/23/2004 17:4 0 EDT 10/23/2004 17:40 EDT us Hilton Álvarez MD CHEMISTRY & BLOOD GAS ORDEmerald RIDDHI Final Result [facility] [address] [place] [address] * CT HEAD WO CONTRAST (10/23/2004 15:29 [...] since previous, as is the sinus thickening. /[facility] Narrative 03/06/2009 9:26 EDT H/O AKINETIC MUTISM [...] since previous, as is the sinus thickening. /[facility] Hilton Álvarez MD IMG CT ORDERABLES Final [...] HANNON Final Result [facility] [address] [place] [address] * (ABNORMAL) SODIUM (10/23/2004 14:07 EDT) Sodium 146(H) 136 - 145 mEq/L [facility] Comment:Slight hemolysis 10/23/2004 14:0 7 EDT 10/23/2004 14:07 EDT Hilton Álvarez MD CHEMISTRY & BLOOD GAS ORDE RABLES Final Result Performing Organization Address City/State/[facility] Co de Phone Number [facility] [address] [place] [address] * (ABNORMAL) ELECTROLYTES (10/23/2004 11:54 EDT) Sodium [...] ORDE RIDDHI Final Result Performing Organization Address [facility] Co de Phone Number [facility] [address] [place] [address] * (ABNORMAL) SODIUM (10/23/2004 10:00 EDT) Sodium 149(H) 136 - 145 mEq/L [facility] Comment:Heparinized plasma. 10/23/2004 10:0 0 EDT 10/23/2004 10:00 EDT Hilton Álvarez MD CHEMISTRY & BLOOD GAS ORDE RABREBECA Final Result Performing Organization Address [facility] Co de Phone Number [facility] [address] [place] [address] * (ABNORMAL) ELECTROLYTES (10/23/2004 7:51 EDT) Sodium 149(H) 136 - 145 mEq/L [facility] Potassium 3.3(L) 3.6 - 5.2 mEq/L [facility] Chloride 116(H) 96 - 110 mEq/L [facility] CO2 26 24 - 32 mEq/L [facility] 10/23/2004 7:51 EDT 10/23/2004 7:51 EDT us Hilton Álvarez MD CHEMISTRY & BLOOD GAS ORDEmerald HANNON Final Result Performing Organization Address [facility] Phone Number [facility] [address] [place] [address] * (ABNORMAL) SODIUM (10/23/2004 6:00 EDT) Sodium 150(H) 136 - 145 mEq/L [facility] 10/23/2004 6:00 EDT 10/23/2004 6:21 EDT us Hilton Álvarez MD CHEMISTRY & BLOOD GAS ORDEmerald RABREBECA Final Result Performing Organization Address [facility] Phone Number [facility] [address] [place] [address] * (ABNORMAL) ELECTROLYTES (10/23/2004 4:00 EDT) Sodium 150(H) 136 - 145 mEq/L [facility] Potassium 3.6 3.6 - 5.2 mEq/L [facility] Chloride 118(H) 96 - 110 mEq/L [facility] CO2 26 24 - 32 mEq/L [facility] 10/23/2004 4:00 EDT 10/23/2004 4:17 EDT us Hilton Álvarez MD CHEMISTRY & BLOOD GAS ORDEmerald HANNON Final Result Performing Organization Address [facility] de Phone Number [facility] [address] [place] [address] * (ABNORMAL) CREATININE (10/23/2004 4:00 EDT) Creatinine 0.5(L) 0.6 - 1.2 mg/dl [facility] 10/23/2004 4:00 EDT 10/23/2004 4:17 EDT us Hilton Álvarez MD HISTORICAL LAB FOR SQ LOAD Final Result Performing Organization Address [facility]/State/ZIP Co de Phone Number [facility] [address] [place] [address] * (ABNORMAL) HEMAGRAM AND DIFFERENTIAL (10/23/2004 4:00 [...] LYNDSEY Final Result [facility] [address] [place] [address] * BUN (10/23/2004 4:00 EDT) BUN 16 8 - 21 mg/dl [facility] 10/23/2004 4:00 EDT 10/23/2004 4:17 EDT Hilton Álvarez MD CHEMISTRY & BLOOD GAS ORDE RABLES Final Result Performing Organization Address City/[facility] Co de Phone Number [facility] [address] [place] [address] * (ABNORMAL) SODIUM (10/23/2004 2:00 EDT) Sodium 153(H) 136 - 145 mEq/L [facility] 10/23/2004 2:00 EDT 10/23/2004 2:13 EDT Hilton Álvarez MD CHEMISTRY & BLOOD GAS ORDE RABLES Final Result Performing Organization Address [facility] Co de Phone Number [facility] [address] [place] [address] * (ABNORMAL) ELECTROLYTES (10/23/2004 0:00 EDT) Sodium 151(H) 136 - 145 mEq/L [facility] Potassium 3.9 3.6 - 5.2 mEq/L [facility] Chloride 117(H) 96 - 110 mEq/L [facility] CO2 27 24 - 32 mEq/L [facility] 10/23/2004 10/23/2004 0:3 8 EDT Hilton Álvarez MD CHEMISTRY & BLOOD GAS ORDE RABLES Final Result Performing Organization Address [facility] Co de Phone Number [facility] [address] [place] [address] * (ABNORMAL) SODIUM (10/22/2004 21:59 EDT) Sodium 149(H) 136 - 145 mEq/L [facility] 10/22/2004 21:5 9 EDT 10/22/2004 21:59 EDT Hilton Álvarez MD CHEMISTRY & BLOOD GAS ORDE RABLES Final Result Performing Organization Address [facility] Co de Phone Number [facility] [address] [place] [address] * (ABNORMAL) ELECTROLYTES (10/22/2004 20:23 EDT) Sodium 151(H) 136 - 145 mEq/L [facility] Potassium 3.8 3.6 - 5.2 mEq/L [facility] Chloride 117(H) 96 - 110 mEq/L [facility] CO2 28 24 - 32 mEq/L [facility] 10/22/2004 20:2 3 EDT 10/22/2004 20:23 EDT Hilton Álvarez MD CHEMISTRY & BLOOD GAS ORDE RABLES Final Result Performing Organization Address [facility] Co de Phone Number [facility] [address] [place] [address] * (ABNORMAL) SODIUM (10/22/2004 18:05 EDT) Sodium 147(H) 136 - 145 mEq/L [facility] 10/22/2004 18:0 5 EDT 10/22/2004 18:09 EDT Hilton Álvarez MD CHEMISTRY & BLOOD GAS ORDE RABLES Final Result Performing Organization Address [facility] de Phone Number [facility] [address] [place] [address] * (ABNORMAL) ELECTROLYTES (10/22/2004 16:40 EDT) Sodium 148(H) 136 - 145 mEq/L [facility] Potassium 3.4(L) 3.6 - 5.2 mEq/L [facility] Chloride 120(H) 96 - 110 mEq/L [facility] CO2 24 24 - 32 mEq/L [facility] 10/22/2004 16:4 0 EDT 10/22/2004 16:43 EDT Hilton Álvarez MD CHEMISTRY & BLOOD GAS ORDE RABLES Final Result Performing Organization Address City/[facility] Co de Phone Number [facility] [address] [place] [address] * TRIGLYCERIDE (10/22/2004 14:10 EDT) Triglycerides 164 34 - 165 mg/dl [facility] Comment:Heparinized plasma. 10/22/2004 14:1 0 EDT 10/22/2004 14:16 EDT Hilton Álvarez MD CHEMISTRY & BLOOD GAS HERMES HANNON Final Result Performing Organization Address [facility] de Phone Number [facility] [address] [place] [address] * (ABNORMAL) SODIUM (10/22/2004 14:10 EDT) Sodium 147(H) 136 - 145 mEq/L [facility] Comment:Heparinized plasma. 10/22/2004 14:1 0 EDT 10/22/2004 14:16 EDT Hilton Álvarez MD CHEMISTRY & BLOOD GAS HERMES HANNON Final Result Performing Organization Address [facility] de Phone Number [facility] [address] [place] [address] * OSMOLALITY, URINE (10/22/2004 12:50 EDT) Pathologist [facility] Osmolality, Ur 864 MOS/KG HOLLY GARCIA 10/22/2004 12:5 0 EDT 10/22/2004 12:52 EDT Hilton Álvarez MD URINALYSIS ORDERABLES Jacquie l Result Performing Organization Address [facility] de Phone Number [facility] [address] [place] [address] * SODIUM, URINE RANDOM (10/22/2004 12:50 EDT) Pathologist [facility] Sodium, Ur 191.0 mEq/L [facility] 10/22/2004 12:5 0 EDT 10/22/2004 12:52 EDT Hilton Álvarez MD URINALYSIS ORDERABLES Jacquie l Result Performing Organization Address [facility] Co de Phone Number [facility] [address] [place] [address] * (ABNORMAL) GLUCOSE, GLUCOMETER (10/22/2004 12:16 EDT) Glucose, Fingerstick 124(H) 70 - 110 mg/dl [facility] Inventory Control Clerk ID [id number] Test Performed by Nursing Services [facility] 10/22/2004 12:1 6 EDT 10/23/2004 0:41 EDT Hilton Álvarez MD CHEMISTRY & BLOOD GAS ORDE RABREBECA Final Result Performing Organization Address [facility] Co de Phone Number [facility] [address] [place] [address] * (ABNORMAL) T4 FREE (10/22/2004 12:05 EDT) Pathologist [facility] Free T4 0.5(L) 0.8 - 1.8 ng/dl [facility] Comment:Test added by phone 10/22/2004 12:0 5 EDT 10/22/2004 14:04 EDT Hilton Álvarez MD CHEMISTRY & BLOOD GAS ORDE RABREBECA Final Result Performing Organization Address [facility] de Phone Number [facility] [address] [place] [address] * (ABNORMAL) ELECTROLYTES (10/22/2004 12:05 EDT) Sodium 147(H) 136 - 145 mEq/L [facility] Potassium 3.6 3.6 - 5.2 mEq/L [facility] Chloride 116(H) 96 - 110 mEq/L [facility] CO2 25 24 - 32 mEq/L [facility] 10/22/2004 12:0 5 EDT 10/22/2004 12:19 EDT Hilton Álvarez MD CHEMISTRY & BLOOD GAS ORDE RABLES Final Result Performing Organization Address City/[facility] Co de Phone Number [facility] [address] [place] [address] * T4 FREE (10/22/2004 12:05 EDT) Free T4 Testing cannot be performed on heparinized samples. 0.8 - 1.8 ng/dl [facility] 10/22/2004 12:0 5 EDT 10/22/2004 12:19 EDT Hilton Álvarez MD CHEMISTRY & BLOOD GAS ORDE RABLES Final Result Performing Organization Address [facility] Co de Phone Number [facility] [address] [place] [address] * TESTS ADDED BY PHONE (10/22/2004 12:05 EDT) [facility] Tests to be added FT4 [facility] 10/22/2004 12:0 5 EDT 10/22/2004 12:19 EDT Hilton Álvarez MD CHEMISTRY & BLOOD GAS ORDE RABLES Final Result Performing Organization Address [facility] de Phone Number [facility] [address] [place] [address] * (ABNORMAL) SODIUM (10/22/2004 10:00 EDT) [facility] Sodium 148(H) 136 - 145 mEq/L [facility] 10/22/2004 10:0 0 EDT 10/22/2004 10:03 EDT Hilton Álvarez MD CHEMISTRY & BLOOD GAS ORDE RABLES Final Result Performing Organization Address [facility] de Phone Number [facility] [address] [place] [address] * (ABNORMAL) ELECTROLYTES (10/22/2004 8:10 EDT) [facility] Sodium 147(H) 136 - 145 mEq/L [facility] [...] RABLES Final Result [facility] [address] [place] [address] * T4 FREE (10/22/2004 8:10 EDT) Free T4 Testing cannot be performed on heparinized samples. 0.8 - 1.8 ng/dl [facility] 10/22/2004 8:10 EDT 10/22/2004 8:19 EDT Hilton Álvarez MD CHEMISTRY & BLOOD GAS ORDE RABLES Final Result Performing Organization Address City/[facility]/ZIP Co de Phone Number [facility] [address] [place] [address] * TESTS ADDED BY PHONE (10/22/2004 8:10 EDT) Tests to be added FT4 [facility] 10/22/2004 8:10 EDT 10/22/2004 8:19 EDT Hilton Álvarez MD CHEMISTRY & BLOOD GAS ORDE RABLES Final Result Performing Organization Address City/[facility]/ZIP Co de Phone Number [facility] [address] [place] [address] * (ABNORMAL) SODIUM (10/22/2004 6:05 EDT) Sodium 149(H) 136 - 145 mEq/L [facility] 10/22/2004 6:05 EDT 10/22/2004 6:05 EDT Hilton Álvarez MD CHEMISTRY & BLOOD GAS ORDE RABLES Final Result Performing Organization Address [facility] Co de Phone Number [facility] [address] [place] [address] * TOTAL BILIRUBIN (10/22/2004 4:15 EDT) Bilirubin, Total <0.5 0.0 - 1.4 mg/dl [facility] Comment:Heparinized plasma. 10/22/2004 4:15 EDT 10/22/2004 4:15 EDT Hilton Álvarez MD CHEMISTRY & BLOOD GAS ORDE RABLES Final Result Performing Organization Address [facility] Phone Number [facility] [address] [place] [address] * GLUCOSE, SERUM (10/22/2004 4:15 EDT) Glucose, Serum 104 70 - 110 mg/dl [facility] Comment:Heparinized plasma. 10/22/2004 4:15 EDT 10/22/2004 4:15 EDT Hilton Álvarez MD CHEMISTRY & BLOOD GAS ORDE RABLES Final Result Performing Organization Address [facility] de Phone Number [facility] [address] [place] [address] * (ABNORMAL) PHOSPHORUS (10/22/2004 4:15 EDT) Phosphorus 2.8(L) 2.9 - 5.4 mg/dl [facility] Comment:Heparinized plasma. 10/22/2004 4:15 EDT 10/22/2004 4:15 EDT Hilton Álvarez MD CHEMISTRY & BLOOD GAS ORDE RABLES Final Result Performing Organization Address [facility] Co de Phone Number [facility] [address] [place] [address] * MAGNESIUM (10/22/2004 4:15 EDT) Pathologist [facility] Magnesium 2.6 1.7 - 2.8 mg/dl [facility] Comment:Heparinized plasma. 10/22/2004 4:15 EDT 10/22/2004 4:15 EDT Hilton Álvarez MD CHEMISTRY & BLOOD GAS [facility] Final Result Performing Organization Address [facility] de Phone Number [facility] [address] [place] [address] * (ABNORMAL) ELECTROLYTES (10/22/2004 4:15 EDT) Pathologist [facility] Sodium 148(H) 136 - 145 mEq/L [facility] Comment:Heparinized plasma. Potassium 3.7 3.6 - 5.2 mEq/L [facility] Comment:Heparinized plasma. Chloride 115(H) 96 - 110 mEq/L [facility] Comment:Heparinized plasma. CO2 25 24 - 32 mEq/L [facility] Comment:Heparinized plasma. 10/22/2004 4:15 EDT 10/22/2004 4:15 EDT Hilton Álvarez MD CHEMISTRY & BLOOD GAS [facility] Final Result Performing Organization Address [facility] Phone Number [facility] [address] [place] [address] * (ABNORMAL) CREATININE (10/22/2004 4:15 EDT) [facility] Creatinine 0.5(L) 0.6 - 1.2 mg/dl [facility] Comment:Heparinized plasma. 10/22/2004 4:15 EDT 10/22/2004 4:15 EDT Hilton Álvarez MD HISTORICAL LAB FOR SQ LOAD Final Result Performing Organization Address [facility] de Phone Number [facility] [address] [place] [address] * (ABNORMAL) HEMAGRAM AND DIFFERENTIAL (10/22/2004 4:15 EDT) WBC 6.26 4.5 - 13.0 K/cmm [facility] RBC 3.29(L) 4.50 - 5.30 M/cmm [facility] Hemoglobin 9.4(L) 13.0 - 16.0 gm/dl [facility] HCT 26.8(L) 37.0 - 49.0 % [...] LYNDSEY Final Result [facility] [address] [place] [address] * (ABNORMAL) CALCIUM (10/22/2004 4:15 EDT) Calcium 7.6(L) 8.5 - 10.5 mg/dl [facility] Comment:Heparinized plasma. Calculated Calcium 9.0 8.5 - 10.5 mg/dl [facility] Comment:Heparinized plasma. 10/22/2004 4:15 EDT 10/22/2004 4:15 EDT us Hilton Álvarez MD CHEMISTRY & BLOOD GAS ORDE RABLES Final Result Performing Organization Address [facility] Co de Phone Number [facility] [address] [place] [address] * BUN (10/22/2004 4:15 EDT) BUN 15 8 - 21 mg/dl [facility] Comment:Heparinized plasma. 10/22/2004 4:15 EDT 10/22/2004 4:15 EDT us Hilton Álvarez MD CHEMISTRY & BLOOD GAS ORDE RABLES Final Result Performing Organization Address [facility] de Phone Number [facility] [address] [place] [address] * (ABNORMAL) AST (10/22/2004 4:15 EDT) AST 91(H) 16 - 38 U/L [facility] Comment: Sample retested, result confirmed Heparinized plasma. 10/22/2004 4:15 EDT 10/22/2004 4:15 EDT us Hilton Álvarez MD CHEMISTRY & BLOOD GAS ORDE RABLES Final Result Performing Organization Address [facility] de Phone Number [facility] [address] [place] [address] * (ABNORMAL) ALT (10/22/2004 4:15 EDT) ALT 222(H) 10 - 45 U/L [facility] Comment: Sample retested, result confirmed Heparinized plasma. 10/22/2004 4:15 EDT 10/22/2004 4:15 EDT us Hilton Álvarez MD CHEMISTRY & BLOOD GAS ORDE RABLES Final Result Performing Organization Address [facility] Co de Phone Number [facility] [address] [place] [address] * (ABNORMAL) ALKALINE PHOSPHATASE (10/22/2004 4:15 EDT) Total Alkaline Phosphatase 92(L) 130 - 525 U/L [facility] Comment:Heparinized plasma. 10/22/2004 4:15 EDT 10/22/2004 4:15 EDT Hilton Álvarez MD CHEMISTRY & BLOOD GAS [facility] Final Result Performing Organization Address [facility] Phone Number [facility] [address] [place] [address] * SODIUM (10/22/2004 1:58 EDT) Pathologist [facility] Sodium 144 136 - 145 mEq/L [facility] Comment:Heparinized plasma. 10/22/2004 1:58 EDT 10/22/2004 1:58 EDT Hilton Álvarez MD CHEMISTRY & BLOOD GAS ORDE [facility] Final Result Performing Organization Address [facility] Phone Number [facility] [address] [place] [address] * ELECTROLYTES (10/22/2004 0:05 EDT) Pathologist [facility] Sodium 140 136 - 145 mEq/L [facility] Comment:Heparinized plasma. Potassium 3.8 3.6 - 5.2 mEq/L [facility] Comment:Heparinized plasma. Chloride 104 96 - 110 mEq/L [facility] Comment:Heparinized plasma. CO2 28 24 - 32 mEq/L [facility] Comment:Heparinized plasma. 10/22/2004 0:05 EDT 10/22/2004 0:05 EDT Hilton Álvarez MD CHEMISTRY & BLOOD GAS OR[facility] Final Result Performing Organization Address [facility] Phone Number [facility] [address] [place] [address] * (ABNORMAL) GLUCOSE, GLUCOMETER (10/22/2004 0:01 EDT) Glucose, Fingerstick 132(H) 70 - 110 mg/dl [facility] Inventory Control Clerk ID [id number] Test Performed by Nursing Services [facility] 10/22/2004 0:01 EDT 10/23/2004 1:02 EDT Hilton Álvarez MD CHEMISTRY & BLOOD GAS ORDE RABLES Final Result Performing Organization Address [facility] de Phone Number [facility] [address] [place] [address] * SODIUM (10/21/2004 22:04 EDT) Sodium 137 136 - 145 mEq/L [facility] 10/21/2004 22:0 4 EDT 10/21/2004 22:04 EDT Hilton Álvarez MD CHEMISTRY & BLOOD GAS ORDE RABLES Final Result Performing Organization Address [facility] de Phone Number [facility] [address] [place] [address] * (ABNORMAL) GLUCOSE, GLUCOMETER (10/21/2004 21:59 EDT) Glucose, Fingerstick 121(H) 70 - 110 mg/dl [facility] Inventory Control Clerk ID [id number] Test Performed by Nursing Services [facility] 10/21/2004 21:5 9 EDT 10/22/2004 0:20 EDT Hilton Álvarez MD CHEMISTRY & BLOOD GAS ORDE RABLES Final Result Performing Organization Address [facility] de Phone Number [facility] [address] [place] [address] * (ABNORMAL) ELECTROLYTES (10/21/2004 19:46 EDT) Sodium [...] ORDE RABLES Final Result Performing Organization Address [facility] de Phone Number [facility] [address] [place] [address] * (ABNORMAL) GLUCOSE, GLUCOMETER (10/21/2004 18:19 EDT) Glucose, Fingerstick 129(H) 70 - 110 mg/dl [facility] Inventory Control Clerk ID [id number] Test Performed by Nursing Services [facility] 10/21/2004 18:1 9 EDT 10/22/2004 0:26 EDT Hilton Álvarez MD CHEMISTRY & BLOOD GAS ORDE RABLES Final Result Performing Organization Address [facility] Co de Phone Number [facility] [address] [place] [address] * SODIUM (10/21/2004 18:18 EDT) Sodium 138 136 - 145 mEq/L [facility] 10/21/2004 18:1 8 EDT 10/21/2004 18:23 EDT Hilton Álvarez MD CHEMISTRY & BLOOD GAS ORDE RABLES Final Result Performing Organization Address [facility] de Phone Number [facility] [address] [place] [address] * ELECTROLYTES (10/21/2004 15:58 EDT) Sodium 138 [...] ORDE RABLES Final Result Performing Organization Address [facility] de Phone Number [facility] [address] [place] [address] * (ABNORMAL) SODIUM (10/21/2004 14:13 EDT) Sodium 132(L) 136 - 145 mEq/L [facility] Comment:Heparinized plasma. 10/21/2004 14:1 3 EDT 10/21/2004 14:13 EDT Hilton Álvarez MD CHEMISTRY & BLOOD GAS ORDE RABLES Final Result Performing Organization Address [facility] Phone Number [facility] [address] [place] [address] * (ABNORMAL) GLUCOSE, GLUCOMETER (10/21/2004 14:07 EDT) Glucose, Fingerstick 116(H) 70 - 110 mg/dl [facility] Inventory Control Clerk ID [id number] Test Performed by Nursing Services [facility] 10/21/2004 14:0 7 EDT 10/22/2004 0:24 EDT Hilton Álvarez MD CHEMISTRY & BLOOD GAS ORDE RABLES Final Result Performing Organization Address [facility] de Phone Number [facility] [address] [place] [address] * (ABNORMAL) ELECTROLYTES (10/21/2004 12:00 EDT) Sodium 131(L) 136 - 145 mEq/L [facility] Potassium 4.0 3.6 - 5.2 mEq/L [facility] Chloride 98 96 - 110 mEq/L [facility] CO2 27 24 - 32 mEq/L [facility] 10/21/2004 12:0 0 EDT 10/21/2004 12:07 EDT Hilton Álvarez MD CHEMISTRY & BLOOD GAS ORDE RABLES Final Result Performing Organization Address [facility] de Phone Number [facility] [address] [place] [address] * (ABNORMAL) SODIUM (10/21/2004 10:00 EDT) Sodium 133(L) 136 - 145 mEq/L [facility] Comment:Heparinized plasma. 10/21/2004 10:0 0 EDT 10/21/2004 10:05 EDT Hilton Álvarez MD CHEMISTRY & BLOOD GAS ORDE RABLES Final Result Performing Organization Address [facility] Phone Number [facility] [address] [place] [address] * (ABNORMAL) GLUCOSE, GLUCOMETER (10/21/2004 8:10 EDT) Glucose, Fingerstick 111(H) 70 - 110 mg/dl [facility] Inventory Control Clerk ID [id number] Test Performed by Nursing Services [facility] 10/21/2004 8:10 EDT 10/22/2004 0:22 EDT Hilton Álvarez MD CHEMISTRY & BLOOD GAS ORDE RABLES Final Result Performing Organization Address [facility] de Phone Number [facility] [address] [place] [address] * (ABNORMAL) ELECTROLYTES (10/21/2004 8:00 EDT) Sodium [...] ORDE RABLES Final Result Performing Organization Address [facility] Phone Number [facility] [address] [place] [address] * (ABNORMAL) SODIUM (10/21/2004 6:05 EDT) Sodium 133(L) 136 - 145 mEq/L [facility] 10/21/2004 6:05 EDT 10/21/2004 6:05 EDT Hilton Álvarez MD CHEMISTRY & BLOOD GAS ORDE RABLES Final Result Performing Organization Address [facility] Phone Number [facility] [address] [place] [address] * (ABNORMAL) GLUCOSE, GLUCOMETER (10/21/2004 4:06 EDT) Glucose, Fingerstick 123(H) 70 - 110 mg/dl [facility] Inventory Control Clerk ID [id number] Test Performed by Nursing Services [facility] 10/21/2004 4:06 EDT 10/22/2004 0:11 EDT Hilton Álvarez MD CHEMISTRY & BLOOD GAS ORDE RABLES Final Result Performing Organization Address [facility] Phone Number [facility] [address] [place] [address] * (ABNORMAL) ELECTROLYTES (10/21/2004 4:06 EDT) Sodium 133(L) 136 - 145 mEq/L [facility] Potassium 4.0 3.6 - 5.2 mEq/L [facility] Chloride 98 96 - 110 mEq/L [facility] CO2 28 24 - 32 mEq/L [facility] 10/21/2004 4:06 EDT 10/21/2004 4:06 EDT Hilton Álvarez MD CHEMISTRY & BLOOD GAS ORDE RABLES Final Result Performing Organization Address City/[facility]/ZIP Co de Phone Number [facility] [address] [place] [address] * CREATININE (10/21/2004 4:06 EDT) Creatinine 0.7 0.6 - 1.2 mg/dl [facility] 10/21/2004 4:06 EDT 10/21/2004 4:06 EDT Hilton Álvarez MD HISTORICAL LAB FOR SQ LOAD Final Result Performing Organization Address [facility] Co de Phone Number [facility] [address] [place] [address] * (ABNORMAL) HEMAGRAM AND DIFFERENTIAL (10/21/2004 4:06 [...] ORDER LYNDSEY Final Result Performing Organization Address [facility] de Phone Number [facility] [address] [place] [address] * BUN (10/21/2004 4:06 EDT) BUN 13 8 - 21 mg/dl [facility] 10/21/2004 4:06 EDT 10/21/2004 4:06 EDT Hilton Álvarez MD CHEMISTRY & BLOOD GAS ORDE RABREBECA Final Result Performing Organization Address [facility] de Phone Number [facility] [address] [place] [address] * (ABNORMAL) SODIUM (10/21/2004 2:01 EDT) Sodium 134(L) 136 - 145 mEq/L [facility] 10/21/2004 2:01 EDT 10/21/2004 2:01 EDT us Hilton Álvarez MD CHEMISTRY & BLOOD GAS ORDE RABLES Final Result Performing Organization Address [facility] de Phone Number [facility] [address] [place] [address] * SODIUM (10/20/2004 22:07 EDT) Sodium 140 136 - 145 mEq/L [facility] 10/20/2004 22:0 7 EDT 10/20/2004 22:07 EDT Hilton Álvarez MD CHEMISTRY & BLOOD GAS ORDE RABLES Final Result Performing Organization Address [facility] de Phone Number [facility] [address] [place] [address] * (ABNORMAL) GLUCOSE, GLUCOMETER (10/20/2004 22:00 EDT) Glucose, Fingerstick 151(H) 70 - 110 mg/dl [facility] Inventory Control Clerk ID [id number] Test Performed by Nursing Services [facility] 10/20/2004 22:0 0 EDT 10/20/2004 23:06 EDT Hilton Álvarez MD CHEMISTRY & BLOOD GAS ORDE RABLES Final Result Performing Organization Address [facility] de Phone Number [facility] [address] [place] [address] * ELECTROLYTES (10/20/2004 20:08 EDT) Sodium 136 136 - 145 mEq/L [facility] Potassium 3.8 3.6 - 5.2 mEq/L [facility] Chloride 101 96 - 110 mEq/L [facility] CO2 28 24 - 32 mEq/L [facility] 10/20/2004 20:0 8 EDT 10/20/2004 20:08 EDT Hilton Álvarez MD CHEMISTRY & BLOOD GAS ORDE RABLES Final Result Performing Organization Address [facility] de Phone Number [facility] [address] [place] [address] * (ABNORMAL) GLUCOSE, GLUCOMETER (10/20/2004 20:05 EDT) Glucose, Fingerstick 219(H) 70 - 110 mg/dl [facility] Inventory Control Clerk ID [id number] Test Performed by Nursing Services [facility] 10/20/2004 20:0 5 EDT 10/20/2004 21:43 EDT Hilton Álvarez MD CHEMISTRY & BLOOD GAS ORDE RABLES Final Result Performing Organization Address [facility]/State/ZIP Co de Phone Number [facility] [address] [place] [address] * SODIUM (10/20/2004 18:00 EDT) Sodium 140 136 - 145 mEq/L [facility] 10/20/2004 18:0 0 EDT 10/20/2004 18:07 EDT Hilton Álvarez MD CHEMISTRY & BLOOD GAS ORDE RABLES Final Result Performing Organization Address [facility] Co de Phone Number [facility] [address] [place] [address] * (ABNORMAL) ELECTROLYTES (10/20/2004 16:00 EDT) Sodium [...] ORDE RABLES Final Result Performing Organization Address [facility] Co de Phone Number [facility] [address] [place] [address] * SODIUM (10/20/2004 14:00 EDT) Sodium 140 136 - 145 mEq/L [facility] 10/20/2004 14:0 0 EDT 10/20/2004 14:14 EDT Hilton Álvarez MD CHEMISTRY & BLOOD GAS ORDE RABLES Final Result Performing Organization Address [facility] Co de Phone Number [facility] [address] [place] [address] * (ABNORMAL) ELECTROLYTES (10/20/2004 12:42 EDT) Sodium 141 136 - 145 mEq/L [facility] Potassium 3.4(L) 3.6 - 5.2 mEq/L [facility] Chloride 109 96 - 110 mEq/L [facility] CO2 26 24 - 32 mEq/L [facility] 10/20/2004 12:4 2 EDT 10/20/2004 12:42 EDT Hilton Álvarez MD CHEMISTRY & BLOOD GAS ORDE RABLES Final Result Performing Organization Address [facility] [facility] Co de Phone Number [facility] [address] [place] [address] * SODIUM (10/20/2004 10:00 EDT) Sodium 143 136 - 145 mEq/L [facility] 10/20/2004 10:0 0 EDT 10/20/2004 10:28 EDT Hilton Álvarez MD CHEMISTRY & BLOOD GAS ORDE RABLES Final Result Performing Organization Address [facility] de Phone Number [facility] [address] [place] [address] * (ABNORMAL) ELECTROLYTES (10/20/2004 8:21 EDT) Sodium [...] ORDE RABLES Final Result Performing Organization Address [facility] Co de Phone Number [facility] [address] [place] [address] * SODIUM (10/20/2004 6:06 EDT) Sodium 143 136 - 145 mEq/L [facility] 10/20/2004 6:06 EDT 10/20/2004 6:06 EDT Hilton Álvarez MD CHEMISTRY & BLOOD GAS HERMES HANNON Final Result Performing Organization Address City/[facility]/ZIP Co de Phone Number [facility] [address] [place] [address] * TOTAL & DIRECT BILIRUBIN (10/20/2004 4:00 EDT) Conjugated Bilirubin 0.0 0.0 - 0.3 mg/dl [facility] Unconjugated Bilirubin 0.3 0.1 - 1.1 mg/dl [facility] Bilirubin, Total <0.5 0.0 - 1.4 mg/dl [facility] 10/20/2004 4:00 EDT 10/20/2004 4:00 EDT Hilton Álvarez MD CHEMISTRY & BLOOD GAS HERMES HANNON Final Result Performing Organization Address City/[facility]/ZIP Co de Phone Number [facility] [address] [place] [address] * TOTAL BILIRUBIN (10/20/2004 4:00 EDT) Bilirubin, Total 0.0 - 1.4 mg/dl [facility] 10/20/2004 4:00 EDT 10/20/2004 4:00 EDT Hilton Álvarez MD CHEMISTRY & BLOOD GAS HERMES HANNON Final Result [facility] [address] [place] [address] * PHOSPHORUS (10/20/2004 4:00 EDT) Phosphorus 3.4 2.9 - 5.4 mg/dl [facility] 10/20/2004 4:00 EDT 10/20/2004 4:00 EDT us Hilton Álvarez MD CHEMISTRY & BLOOD GAS ORDE RABLES Final Result Performing Organization Address [facility] de Phone Number [facility] [address] [place] [address] * MAGNESIUM (10/20/2004 4:00 EDT) Magnesium 2.5 1.7 - 2.8 mg/dl [facility] 10/20/2004 4:00 EDT 10/20/2004 4:00 EDT us Hilton Álvarez MD CHEMISTRY & BLOOD GAS ORDE RABLES Final Result Performing Organization Address [facility] Phone Number [facility] [address] [place] [address] * (ABNORMAL) ELECTROLYTES (10/20/2004 4:00 EDT) Sodium 145 136 - 145 mEq/L [facility] Potassium 3.8 3.6 - 5.2 mEq/L [facility] Chloride 111(H) 96 - 110 mEq/L [facility] CO2 28 24 - 32 mEq/L [facility] 10/20/2004 4:00 EDT 10/20/2004 4:00 EDT us Hilton Álvarez MD CHEMISTRY & BLOOD GAS ORDE RABLES Final Result Performing Organization Address [facility] de Phone Number [facility] [address] [place] [address] * CREATININE (10/20/2004 4:00 EDT) Creatinine 0.7 0.6 - 1.2 mg/dl [facility] 10/20/2004 4:00 EDT 10/20/2004 4:00 EDT us Hilton Álvarez MD HISTORICAL LAB FOR SQ LOAD Final Result Performing Organization Address City/[facility]/ZIP Co de Phone Number [facility] [address] [place] [address] * (ABNORMAL) HEMAGRAM AND DIFFERENTIAL (10/20/2004 4:00 [...] ORDER LYNDSEY Final Result Performing Organization Address City/[facility] Co de Phone Number [facility] [address] [place] [address] * (ABNORMAL) CALCIUM (10/20/2004 4:00 EDT) Calcium 7.9(L) 8.5 - 10.5 mg/dl [facility] Calculated Calcium 9.4 8.5 - 10.5 mg/dl [facility] 10/20/2004 4:00 EDT 10/20/2004 4:00 EDT Hilton Álvarez MD CHEMISTRY & BLOOD GAS ORDE RABLES Final Result Performing Organization Address [facility] Co de Phone Number [facility] [address] [place] [address] * BUN (10/20/2004 4:00 EDT) BUN 15 8 - 21 mg/dl [facility] 10/20/2004 4:00 EDT 10/20/2004 4:00 EDT Hilton Álvarez MD CHEMISTRY & BLOOD GAS ORDE RABLES Final Result Performing Organization Address [facility] de Phone Number [facility] [address] [place] [address] * AST (10/20/2004 4:00 EDT) AST 27 16 - 38 U/L [facility] 10/20/2004 4:00 EDT 10/20/2004 4:00 EDT Hilton Álvarez MD CHEMISTRY & BLOOD GAS ORDE RABLES Final Result Performing Organization Address [facility] de Phone Number [facility] [address] [place] [address] * (ABNORMAL) ALT (10/20/2004 4:00 EDT) ALT 50(H) 10 - 45 U/L [facility] 10/20/2004 4:00 EDT 10/20/2004 4:00 EDT us Hilton Álvarez MD CHEMISTRY & BLOOD GAS ORDE RABLES Final Result Performing Organization Address [facility] Co de Phone Number [facility] [address] [place] [address] * (ABNORMAL) ALKALINE PHOSPHATASE (10/20/2004 4:00 EDT) Total Alkaline Phosphatase 91(L) 130 - 525 U/L [facility] 10/20/2004 4:00 EDT 10/20/2004 4:00 EDT Hilton Álvarez MD CHEMISTRY & BLOOD GAS ORDE RABLES Final Result Performing Organization Address [facility] de Phone Number [facility] [address] [place] [address] * (ABNORMAL) GLUCOSE, GLUCOMETER (10/20/2004 3:53 EDT) Glucose, Fingerstick 183(H) 70 - 110 mg/dl [facility] Inventory Control Clerk ID [id number] Test Performed by Nursing Services [facility] 10/20/2004 3:53 EDT 10/21/2004 0:38 EDT Hilton Álvarez MD CHEMISTRY & BLOOD GAS ORDE RABLES Final Result Performing Organization Address [facility] de Phone Number [facility] [address] [place] [address] * SODIUM (10/20/2004 2:07 EDT) Sodium 143 136 - 145 mEq/L [facility] 10/20/2004 2:07 EDT 10/20/2004 2:07 EDT Hilton Álvarez MD CHEMISTRY & BLOOD GAS ORDE RABLES Final Result Performing Organization Address [facility] de Phone Number [facility] [address] [place] [address] * (ABNORMAL) ELECTROLYTES (10/20/2004 0:08 EDT) Sodium 145 136 - 145 mEq/L [facility] Potassium 3.7 3.6 - 5.2 mEq/L [facility] Chloride 113(H) 96 - 110 mEq/L [facility] CO2 28 24 - 32 mEq/L [facility] 10/20/2004 0:08 EDT 10/20/2004 0:08 EDT Hilton Álvarez MD CHEMISTRY & BLOOD GAS ORDE RABLES Final Result Performing Organization Address [facility] de Phone Number [facility] [address] [place] [address] * (ABNORMAL) ELECTROLYTES (10/20/2004 0:04 EDT) Sodium 135(L) 136 - 145 mEq/L [facility] Potassium 4.0 3.6 - 5.2 mEq/L [facility] Chloride 101 96 - 110 mEq/L [facility] CO2 25 24 - 32 mEq/L [facility] 10/20/2004 0:04 EDT 10/21/2004 0:04 EDT Hilton Álvarez MD CHEMISTRY & BLOOD GAS ORDE RABLES Final Result Performing Organization Address [facility] de Phone Number [facility] [address] [place] [address] * (ABNORMAL) GLUCOSE, GLUCOMETER (10/20/2004 0:02 EDT) Glucose, Fingerstick 139(H) 70 - 110 mg/dl [facility] Inventory Control Clerk ID [id number] Test Performed by Nursing Services [facility] 10/20/2004 0:02 EDT 10/20/2004 21:53 EDT Hilton Álvarez MD CHEMISTRY & BLOOD GAS ORDE RABLES Final Result Performing Organization Address [facility] de Phone Number [facility] [address] [place] [address] * (ABNORMAL) SODIUM (10/19/2004 22:12 EDT) Sodium 147(H) 136 - 145 mEq/L [facility] 10/19/2004 22:1 2 EDT 10/19/2004 22:12 EDT Hilton Álvarez MD CHEMISTRY & BLOOD GAS ORDE RABREBECA Final Result Performing Organization Address [facility] de Phone Number [facility] [address] [place] [address] * (ABNORMAL) ELECTROLYTES (10/19/2004 20:00 EDT) Sodium [...] ORDE RIDDHI Final Result Performing Organization Address [facility] Phone Number [facility] [address] [place] [address] * (ABNORMAL) GLUCOSE, GLUCOMETER (10/19/2004 19:55 EDT) Glucose, Fingerstick 165(H) 70 - 110 mg/dl [facility] Inventory Control Clerk ID [id number] Test Performed by Nursing Services [facility] 10/19/2004 19:5 5 EDT 10/19/2004 23:17 EDT Hilton Álvarez MD CHEMISTRY & BLOOD GAS ORDE RABREBECA Final Result Performing Organization Address [facility] Phone Number [facility] [address] [place] [address] * (ABNORMAL) SODIUM (10/19/2004 18:27 EDT) Sodium 149(H) 136 - 145 mEq/L [facility] 10/19/2004 18:2 7 EDT 10/19/2004 18:27 EDT Hilton Álvarez MD CHEMISTRY & BLOOD GAS ORDE RIDDHI Final Result Performing Organization Address [facility] de Phone Number [facility] [address] [place] [address] * GLUCOSE, SERUM (10/19/2004 16:52 EDT) Glucose, Serum 90 70 - 110 mg/dl [facility] 10/19/2004 16:5 2 EDT 10/19/2004 16:52 EDT us Hilton Álvarez MD CHEMISTRY & BLOOD GAS ORDE RIDDHI Final Result Performing Organization Address [facility] de Phone Number [facility] [address] [place] [address] * (ABNORMAL) ELECTROLYTES (10/19/2004 16:52 EDT) Sodium 146(H) 136 - 145 mEq/L [facility] Potassium 3.9 3.6 - 5.2 mEq/L [facility] Chloride 115(H) 96 - 110 mEq/L [facility] CO2 25 24 - 32 mEq/L [facility] 10/19/2004 16:5 2 EDT 10/19/2004 16:52 EDT Hilton Álvarez MD CHEMISTRY & BLOOD GAS ORDEmerald HANNON Final Result Performing Organization Address [facility] de Phone Number [facility] [address] [place] [address] * SODIUM (10/19/2004 14:25 EDT) Sodium 143 136 - 145 mEq/L [facility] 10/19/2004 14:2 5 EDT 10/19/2004 14:25 EDT Hilton Álvarez MD CHEMISTRY & BLOOD GAS ORDE RABREBECA Final Result Performing Organization Address [facility]/ZIP Co de Phone Number [facility] [address] [place] [address] * ELECTROLYTES (10/19/2004 12:09 EDT) Sodium 139 [...] ORDE RABLES Final Result Performing Organization Address [facility] Co de Phone Number [facility] [address] [place] [address] * SODIUM (10/19/2004 10:17 EDT) Sodium 139 136 - 145 mEq/L [facility] Comment:Heparinized plasma. 10/19/2004 10:1 7 EDT 10/19/2004 10:17 EDT Hilton Álvarez MD CHEMISTRY & BLOOD GAS ORDE RABLES Final Result Performing Organization Address [facility] de Phone Number [facility] [address] [place] [address] * ELECTROLYTES (10/19/2004 8:20 EDT) Sodium 137 136 - 145 mEq/L [facility] Potassium 4.2 3.6 - 5.2 mEq/L [facility] Chloride 103 96 - 110 mEq/L [facility] CO2 25 24 - 32 mEq/L [facility] 10/19/2004 8:20 EDT 10/19/2004 8:20 EDT Hilton Álvarez MD CHEMISTRY & BLOOD GAS ORDE RABLES Final Result Performing Organization Address City/State/[facility] Co de Phone Number [facility] [address] [place] [address] * OSMOLALITY, URINE (10/19/2004 6:54 EDT) Osmolality, Ur 874 MOS/KG [facility] 10/19/2004 6:54 EDT 10/19/2004 6:54 EDT Hilton Álvarez MD URINALYSIS ORDERABLES Jacquie l Result Performing Organization Address [facility]/ZIP Co de Phone Number [facility] [address] [place] [address] * SODIUM, URINE RANDOM (10/19/2004 6:54 EDT) Sodium, Ur 201.0 mEq/L [facility] 10/19/2004 6:54 EDT 10/19/2004 6:54 EDT Hilton Álvarez MD URINALYSIS ORDERABLES Jacquie l Result Performing Organization Address [facility] de Phone Number [facility] [address] [place] [address] * GLUCOSE, SERUM (10/19/2004 6:21 EDT) Pathologist [facility] Glucose, Serum 81 70 - 110 mg/dl [facility] Comment:Heparinized plasma. 10/19/2004 6:21 EDT 10/19/2004 6:21 EDT Hilton Álvarez MD CHEMISTRY & BLOOD GAS HERMES HANNON Final Result Performing Organization Address [facility] Co de Phone Number [facility] [address] [place] [address] * OSMOLALITY (10/19/2004 6:21 EDT) Osmolality Cintia 285 MOS/KG [facility] 10/19/2004 6:21 EDT 10/19/2004 6:21 EDT Hilton Álvarez MD CHEMISTRY & BLOOD GAS ORDE RABLES Final Result Performing Organization Address [facility] de Phone Number [facility] [address] [place] [address] * (ABNORMAL) ELECTROLYTES (10/19/2004 6:21 EDT) Sodium [...] ORDE RABLES Final Result Performing Organization Address [facility] de Phone Number [facility] [address] [place] [address] * (ABNORMAL) GLUCOSE, SERUM (10/19/2004 4:25 EDT) Glucose, Serum 60(L) 70 - 110 mg/dl [facility] Comment:Heparinized plasma. 10/19/2004 4:25 EDT 10/19/2004 4:25 EDT Hilton Álvarez MD CHEMISTRY & BLOOD GAS ORDE RABLES Final Result Performing Organization Address [facility] de Phone Number [facility] [address] [place] [address] * (ABNORMAL) ELECTROLYTES (10/19/2004 4:25 EDT) Sodium [...] ORDEmerald HANNON Final Result Performing Organization Address [facility] Co de Phone Number [facility] [address] [place] [address] * TOTAL & DIRECT BILIRUBIN (10/19/2004 2:10 EDT) Conjugated Bilirubin 0.0 0.0 - 0.3 mg/dl [facility] Unconjugated Bilirubin 0.3 0.1 - 1.1 mg/dl [facility] Bilirubin, Total <0.5 0.0 - 1.4 mg/dl [facility] 10/19/2004 2:10 EDT 10/19/2004 2:10 EDT Hilton Álvarez MD CHEMISTRY & BLOOD GAS HERMES HANNON Final Result Performing Organization Address [facility] Co de Phone Number [facility] [address] [place] [address] * PHOSPHORUS (10/19/2004 2:10 EDT) Phosphorus 4.4 2.9 - 5.4 mg/dl [facility] 10/19/2004 2:10 EDT 10/19/2004 2:10 EDT Hilton Álvarez MD CHEMISTRY & BLOOD GAS ORDEmerald HANNON Final Result Performing Organization Address City/[facility] Co de Phone Number [facility] [address] [place] [address] * MAGNESIUM (10/19/2004 2:10 EDT) Magnesium 2.4 1.7 - 2.8 mg/dl [facility] 10/19/2004 2:10 EDT 10/19/2004 2:10 EDT Hilton Álvarez MD CHEMISTRY & BLOOD GAS ORDE RABLES Final Result Performing Organization Address [facility] de Phone Number [facility] [address] [place] [address] * ELECTROLYTES (10/19/2004 2:10 EDT) Sodium 137 136 - 145 mEq/L [facility] Potassium 4.1 3.6 - 5.2 mEq/L [facility] Chloride 101 96 - 110 mEq/L [facility] Comment:Sample retested, res ult confirmed CO2 26 24 - 32 mEq/L [facility] 10/19/2004 2:10 EDT 10/19/2004 2:10 EDT Hilton Álvarez MD CHEMISTRY & BLOOD GAS [facility] Final Result Performing Organization Address [facility] de Phone Number [facility] [address] [place] [address] * CREATININE (10/19/2004 2:10 EDT) Creatinine 0.7 0.6 - 1.2 mg/dl [facility] 10/19/2004 2:10 EDT 10/19/2004 2:10 EDT Hilton Álvarez MD HISTORICAL LAB FOR SQ LOAD Final Result Performing Organization Address [facility] de Phone Number [facility] [address] [place] [address] * (ABNORMAL) HEMAGRAM AND DIFFERENTIAL (10/19/2004 2:10 [...] [facility] Type of Diff: Manual [facility] 10/19/2004 2:10 EDT 10/19/2004 2:10 EDT us Hilton Álvarez MD PACKAGES & DNA PROBE ORDER LYNDSEY Final Result Performing Organization Address City/[facility] Co de Phone Number [facility] [address] [place] [address] * (ABNORMAL) CALCIUM (10/19/2004 2:10 EDT) Calcium 8.0(L) 8.5 - 10.5 mg/dl [facility] Calculated Calcium 8.8 8.5 - 10.5 mg/dl [facility] 10/19/2004 2:10 EDT 10/19/2004 2:10 EDT us Hilton Álvarez MD CHEMISTRY & BLOOD GAS ORDE RABLES Final Result Performing Organization Address City/[facility] Co de Phone Number [facility] [address] [place] [address] * BUN (10/19/2004 2:10 EDT) BUN 14 8 - 21 mg/dl [facility] 10/19/2004 2:10 EDT 10/19/2004 2:10 EDT Hilton Álvarez MD CHEMISTRY & BLOOD GAS ORDE RIDDHI Final Result Performing Organization Address [facility]/State/ZIP Co de Phone Number [facility] [address] [place] [address] * AST (10/19/2004 2:10 EDT) AST 27 16 - 38 U/L [facility] 10/19/2004 2:10 EDT 10/19/2004 2:10 EDT Hilton Álvarez MD CHEMISTRY & BLOOD GAS ORDE RABREBECA Final Result Performing Organization Address [facility] Co de Phone Number [facility] [address] [place] [address] * (ABNORMAL) ALT (10/19/2004 2:10 EDT) ALT 50(H) 10 - 45 U/L [facility] 10/19/2004 2:10 EDT 10/19/2004 2:10 EDT Hilton Álvarez MD CHEMISTRY & BLOOD GAS ORDE RABREBECA Final Result Performing Organization Address [facility] de Phone Number [facility] [address] [place] [address] * (ABNORMAL) ALKALINE PHOSPHATASE (10/19/2004 2:10 EDT) Total Alkaline Phosphatase 103(L) 130 - 525 U/L [facility] 10/19/2004 2:10 EDT 10/19/2004 2:10 EDT us Hilton Álvarez MD CHEMISTRY & BLOOD GAS ORDE RABREBECA Final Result Performing Organization Address [facility] Co de Phone Number [facility] [address] [place] [address] * (ABNORMAL) ELECTROLYTES (10/19/2004 0:12 EDT) Sodium [...] ORDE RABLES Final Result Performing Organization Address [facility] Co de Phone Number [facility] [address] [place] [address] * SODIUM (10/18/2004 22:11 EDT) Sodium 137 136 - 145 mEq/L [facility] 10/18/2004 22:1 1 EDT 10/18/2004 22:11 EDT Hilton Álvarez MD CHEMISTRY & BLOOD GAS ORDE RABLES Final Result Performing Organization Address [facility] de Phone Number [facility] [address] [place] [address] * (ABNORMAL) ELECTROLYTES (10/18/2004 20:13 EDT) Sodium 132(L) 136 - 145 mEq/L [facility] Potassium 3.5(L) 3.6 - 5.2 mEq/L [facility] Chloride 96 96 - 110 mEq/L [facility] CO2 25 24 - 32 mEq/L [facility] 10/18/2004 20:1 3 EDT 10/18/2004 20:13 EDT Hilton Álvarez MD CHEMISTRY & BLOOD GAS ORDE RABLES Final Result Performing Organization Address [facility] Co de Phone Number [facility] [address] [place] [address] * GLUCOSE, GLUCOMETER (10/18/2004 20:06 EDT) Glucose, Fingerstick 89 70 - 110 mg/dl [facility] Inventory Control Clerk ID [id number] Test Performed by Nursing Services [facility] 10/18/2004 20:0 6 EDT 10/19/2004 0:23 EDT Hilton Álvarez MD CHEMISTRY & BLOOD GAS ORDE RABLES Final Result Performing Organization Address [facility] de Phone Number [facility] [address] [place] [address] * (ABNORMAL) SODIUM (10/18/2004 18:15 EDT) Sodium 128(L) 136 - 145 mEq/L [facility] 10/18/2004 18:1 5 EDT 10/18/2004 18:15 EDT Hilton Álvarez MD CHEMISTRY & BLOOD GAS ORDE RABLES Final Result Performing Organization Address [facility] de Phone Number [facility] [address] [place] [address] * (ABNORMAL) ELECTROLYTES (10/18/2004 16:08 EDT) Sodium 128(L) 136 - 145 mEq/L [facility] Potassium 3.7 3.6 - 5.2 mEq/L [facility] Chloride 93(L) 96 - 110 mEq/L [facility] CO2 27 24 - 32 mEq/L [facility] 10/18/2004 16:0 8 EDT 10/18/2004 16:08 EDT Hilton Álvarez MD CHEMISTRY & BLOOD GAS ORDE RABLES Final Result Performing Organization Address [facility] de Phone Number [facility] [address] [place] [address] * GLUCOSE, GLUCOMETER (10/18/2004 16:00 EDT) Glucose, Fingerstick 106 70 - 110 mg/dl [facility] Inventory Control Clerk ID [id number] Test Performed by Nursing Services [facility] 10/18/2004 16:0 0 EDT 10/19/2004 0:23 EDT Hilton Álvarez MD CHEMISTRY & BLOOD GAS ORDE RABLES Final Result Performing Organization Address [facility] Phone Number [facility] [address] [place] [address] * (ABNORMAL) SODIUM (10/18/2004 14:37 EDT) Sodium 128(L) 136 - 145 mEq/L [facility] 10/18/2004 14:3 7 EDT 10/18/2004 14:37 EDT Hilton Álvarez MD CHEMISTRY & BLOOD GAS ORDE RABLES Final Result Performing Organization Address [facility] Phone Number [facility] [address] [place] [address] * GLUCOSE, GLUCOMETER (10/18/2004 11:59 EDT) Glucose, Fingerstick 98 70 - 110 mg/dl [facility] Inventory Control Clerk ID [id number] Test Performed by Nursing Services [facility] 10/18/2004 11:5 9 EDT 10/19/2004 0:22 EDT Hilton Álvarez MD CHEMISTRY & BLOOD GAS ORDE RABLES Final Result Performing Organization Address [facility] de Phone Number [facility] [address] [place] [address] * (ABNORMAL) ELECTROLYTES (10/18/2004 11:56 EDT) Sodium 127(L) 136 - 145 mEq/L [facility] Potassium 3.9 3.6 - 5.2 mEq/L [facility] Chloride 92(L) 96 - 110 mEq/L [facility] CO2 29 24 - 32 mEq/L [facility] 10/18/2004 11:5 6 EDT 10/18/2004 11:56 EDT Hilton Álvarez MD CHEMISTRY & BLOOD GAS ORDE RABLES Final Result Performing Organization Address [facility] de Phone Number [facility] [address] [place] [address] * (ABNORMAL) GLUCOSE, GLUCOMETER (10/18/2004 10:07 EDT) Glucose, Fingerstick 130(H) 70 - 110 mg/dl [facility] Inventory Control Clerk ID [id number] Test Performed by Nursing Services [facility] 10/18/2004 10:0 7 EDT 10/19/2004 0:21 EDT Hilton Álvarez MD CHEMISTRY & BLOOD GAS ORDE RABLES Final Result Performing Organization Address [facility] de Phone Number [facility] [address] [place] [address] * (ABNORMAL) SODIUM (10/18/2004 10:06 EDT) Sodium 128(L) 136 - 145 mEq/L [facility] Comment:Heparinized plasma. 10/18/2004 10:0 6 EDT 10/18/2004 10:06 EDT Hilton Álvarez MD CHEMISTRY & BLOOD GAS ORDE RABLES Final Result Performing Organization Address [facility] de Phone Number [facility] [address] [place] [address] * (ABNORMAL) ELECTROLYTES (10/18/2004 8:18 EDT) Sodium 130(L) 136 - 145 mEq/L [facility] Potassium 3.6 3.6 - 5.2 mEq/L [facility] Chloride 92(L) 96 - 110 mEq/L [facility] CO2 30 24 - 32 mEq/L [facility] 10/18/2004 8:18 EDT 10/18/2004 8:18 EDT Hilton Álvarez MD CHEMISTRY & BLOOD GAS ORDE RIDDHI Final Result Performing Organization Address [facility] Co de Phone Number [facility] [address] [place] [address] * UA REFLEX (10/18/2004 7:59 EDT) UA Billing Microscopic not indicated. [facility] 10/18/2004 7:59 EDT 10/18/2004 7:59 EDT Hilton Álvarez MD URINALYSIS ORDERABLES Jacquie l Result Performing Organization Address [facility] Phone Number [facility] [address] [place] [address] * URINALYSIS (10/18/2004 7:59 EDT) Color, UA Yellow [facility] Clarity, UA Cloudy [facility] Glucose, UA Norm NORM [facility] Bilirubin, UA Neg NEG TRUE [facility] Ketones, UA Neg NEG [facility] Specific S[place], Urine 1.020 1.005 - 1.02 [facility] [...] ORDERABLES Jacquie l Result Performing Organization Address [facility] de Phone Number [facility] [address] [place] [address] * CULTURE IF UA POSITIVE (10/18/2004 7:59 EDT) Culture if Indicated Culture not indicated by urinalysis results. [facility] 10/18/2004 7:59 EDT 10/18/2004 7:59 EDT Hilton Álvarez MD MICROBIOLOGY - GENERAL ORD ERABLES Final Result Performing Organization Address [facility] Co de Phone Number [facility] [address] [place] [address] * (ABNORMAL) SODIUM (10/18/2004 6:38 EDT) Sodium 130(L) 136 - 145 mEq/L [facility] Comment:Heparinized plasma. 10/18/2004 6:38 EDT 10/18/2004 6:38 EDT Hilton Álvarez MD CHEMISTRY & BLOOD GAS ORDE RABLES Final Result Performing Organization Address [facility] Co de Phone Number [facility] [address] [place] [address] * TOTAL & DIRECT BILIRUBIN (10/18/2004 4:23 EDT) Conjugated Bilirubin 0.0 0.0 - 0.3 mg/dl [facility] Unconjugated Bilirubin 0.2 0.1 - 1.1 mg/dl [facility] Bilirubin, Total <0.5 0.0 - 1.4 mg/dl [facility] 10/18/2004 4:23 EDT 10/18/2004 4:23 EDT Hilton Álvarez MD CHEMISTRY & BLOOD GAS ORDE RABLES Final Result Performing Organization Address [facility] Co de Phone Number [facility] [address] [place] [address] * PHOSPHORUS (10/18/2004 4:23 EDT) Phosphorus 3.3 2.9 - 5.4 mg/dl [facility] 10/18/2004 4:23 EDT 10/18/2004 4:23 EDT Hilton Álvarez MD CHEMISTRY & BLOOD GAS ORDE RABREBECA Final Result Performing Organization Address [facility] de Phone Number [facility] [address] [place] [address] * MAGNESIUM (10/18/2004 4:23 EDT) Magnesium 2.1 1.7 - 2.8 mg/dl [facility] 10/18/2004 4:23 EDT 10/18/2004 4:23 EDT Hilton Álvarez MD CHEMISTRY & BLOOD GAS ORDE RABLES Final Result Performing Organization Address [facility] Phone Number [facility] [address] [place] [address] * (ABNORMAL) ELECTROLYTES (10/18/2004 4:23 EDT) Sodium 132(L) 136 - 145 mEq/L [facility] Potassium 3.6 3.6 - 5.2 mEq/L [facility] Chloride 94(L) 96 - 110 mEq/L [facility] CO2 30 24 - 32 mEq/L [facility] 10/18/2004 4:23 EDT 10/18/2004 4:23 EDT Hilton Álvarez MD CHEMISTRY & BLOOD GAS ORDE RABLES Final Result Performing Organization Address [facility] de Phone Number [facility] [address] [place] [address] * CREATININE (10/18/2004 4:23 EDT) Creatinine 0.6 0.6 - 1.2 mg/dl [facility] 10/18/2004 4:23 EDT 10/18/2004 4:23 EDT Hilton Álvarez MD HISTORICAL LAB FOR SQ LOAD Final Result Performing Organization Address [facility] de Phone Number [facility] [address] [place] [address] * (ABNORMAL) HEMAGRAM AND DIFFERENTIAL (10/18/2004 4:23 EDT) Pathologist [facility] WBC 10.96 4.5 - 13.0 K/cmm [...] 4:23 EDT 10/18/2004 4:23 EDT us Hilton Ávlarez MD PACKAGES & DNA PROBE ORDER LYNDSEY Final Result [facility] [address] [place] [address] * (ABNORMAL) CALCIUM (10/18/2004 4:23 EDT) Calcium 7.9(L) 8.5 - 10.5 mg/dl [facility] Calculated Calcium 9.0 8.5 - 10.5 mg/dl [facility] 10/18/2004 4:23 EDT 10/18/2004 4:23 EDT Hilton Álvarez MD CHEMISTRY & BLOOD GAS ORDE RABLES Final Result Performing Organization Address [facility] Co de Phone Number [facility] [address] [place] [address] * BUN (10/18/2004 4:23 EDT) BUN 16 8 - 21 mg/dl [facility] 10/18/2004 4:23 EDT 10/18/2004 4:23 EDT us Hilton Álvarez MD CHEMISTRY & BLOOD GAS ORDE RABLES Final Result Performing Organization Address [facility] de Phone Number [facility] [address] [place] [address] * AST (10/18/2004 4:23 EDT) AST 24 16 - 38 U/L [facility] 10/18/2004 4:23 EDT 10/18/2004 4:23 EDT us Hilton Álvarez MD CHEMISTRY & BLOOD GAS ORDE RABLES Final Result Performing Organization Address [facility] de Phone Number [facility] [address] [place] [address] * (ABNORMAL) ALT (10/18/2004 4:23 EDT) ALT 55(H) 10 - 45 U/L [facility] 10/18/2004 4:23 EDT 10/18/2004 4:23 EDT us Hilton Álvarez MD CHEMISTRY & BLOOD GAS ORDE RABLES Final Result Performing Organization Address [facility] Co de Phone Number [facility] [address] [place] [address] * (ABNORMAL) ALKALINE PHOSPHATASE (10/18/2004 4:23 EDT) Total Alkaline Phosphatase 100(L) 130 - 525 U/L [facility] 10/18/2004 4:23 EDT 10/18/2004 4:23 EDT Hilton Álvarez MD CHEMISTRY & BLOOD GAS ORDE RABLES Final Result Performing Organization Address [facility] de Phone Number [facility] [address] [place] [address] * (ABNORMAL) SODIUM (10/18/2004 2:13 EDT) Sodium 132(L) 136 - 145 mEq/L [facility] 10/18/2004 2:13 EDT 10/18/2004 2:13 EDT Hilton Álvarez MD CHEMISTRY & BLOOD GAS ORDE RABLES Final Result Performing Organization Address [facility] Phone Number [facility] [address] [place] [address] * (ABNORMAL) SODIUM (10/18/2004 1:00 EDT) Sodium 133(L) 136 - 145 mEq/L [facility] 10/18/2004 1:00 EDT 10/18/2004 1:00 EDT Hilton Álvarez MD CHEMISTRY & BLOOD GAS ORDE RABLES Final Result Performing Organization Address [facility] de Phone Number [facility] [address] [place] [address] * (ABNORMAL) BLOOD GAS, EG6 ISTAT (10/18/2004 [...] [facility] Sample Type Venous [facility] professional soccer player ID [id number] Test Performed by Respiratory [facility] 10/18/2004 0:10 EDT 10/18/2004 0:06 EDT Hilton Álvarez MD CHEMISTRY & BLOOD GAS ORDE RABREBECA Final Result Performing Organization Address [facility] de Phone Number [facility] [address] [place] [address] * OSMOLALITY (10/18/2004 0:07 EDT) Osmolality Cintia 287 MOS/KG [facility] 10/18/2004 0:07 EDT 10/18/2004 0:07 EDT Hilton Álvarez MD CHEMISTRY & BLOOD GAS ORDE RABLES Final Result Performing Organization Address [facility] de Phone Number [facility] [address] [place] [address] * (ABNORMAL) ELECTROLYTES (10/18/2004 0:07 EDT) Sodium 135(L) 136 - 145 mEq/L [facility] Potassium 3.5(L) 3.6 - 5.2 mEq/L [facility] Chloride 99 96 - 110 mEq/L [facility] CO2 27 24 - 32 mEq/L [facility] 10/18/2004 0:07 EDT 10/18/2004 0:07 EDT us Hilton Álvarez MD CHEMISTRY & BLOOD GAS ORDE RABLES Final Result Performing Organization Address [facility] de Phone Number [facility] [address] [place] [address] * (ABNORMAL) GLUCOSE, GLUCOMETER (10/18/2004 0:06 EDT) Pathologist [facility] Glucose, Fingerstick 112(H) 70 - 110 mg/dl [facility] Inventory Control Clerk ID [id number] Test Performed by Nursing Services [facility] 10/18/2004 0:06 EDT 10/19/2004 0:19 EDT Hilton Álvarez MD CHEMISTRY & BLOOD GAS ORDE RABLES Final Result Performing Organization Address [facility] de Phone Number [facility] [address] [place] [address] * (ABNORMAL) ELECTROLYTES (10/17/2004 22:42 EDT) Pathologist [facility] Sodium 125(L) 136 - 145 mEq/L [...] ORDE RABLES Final Result Performing Organization Address [facility] de Phone Number [facility] [address] [place] [address] * OSMOLALITY (10/17/2004 21:34 EDT) Pathologist [facility] Osmolality Cintia 342 MOS/KG SHER[facility] Comment:Markedly lipemic 10/17/2004 21:3 4 EDT 10/17/2004 21:34 EDT Hilton Álvarez MD CHEMISTRY & BLOOD GAS ORDE RABLES Final Result Performing Organization Address [facility] de Phone Number [facility] [address] [place] [address] * (ABNORMAL) ELECTROLYTES (10/17/2004 21:34 EDT) Sodium [...] Álvarez MD CHEMISTRY & BLOOD GAS [facility] Final Result Performing Organization Address [facility] Co de Phone Number [facility] [address] [place] [address] * OSMOLALITY (10/17/2004 15:50 EDT) Osmolality Cintia 296 MOS/KG [facility] 10/17/2004 15:5 0 EDT 10/17/2004 15:51 EDT Hilton Álvarez MD CHEMISTRY & BLOOD GAS ORDE RABLES Final Result Performing Organization Address [facility] Co de Phone Number [facility] [address] [place] [address] * (ABNORMAL) ELECTROLYTES (10/17/2004 15:50 EDT) Sodium 141 136 - 145 mEq/L [facility] Potassium 3.2(L) 3.6 - 5.2 mEq/L [facility] Chloride 108 96 - 110 mEq/L [facility] CO2 25 24 - 32 mEq/L [facility] 10/17/2004 15:5 0 EDT 10/17/2004 15:51 EDT Hilton Álvarez MD CHEMISTRY & BLOOD GAS ORDE RABLES Final Result Performing Organization Address [facility] Co de Phone Number [facility] [address] [place] [address] * OSMOLALITY, URINE (10/17/2004 11:36 EDT) Osmolality, Ur 532 MOS/KG HOLLY [facility] 10/17/2004 11:3 6 EDT 10/17/2004 11:37 EDT Hilton Álvarez MD URINALYSIS ORDERABLES Jacquie l Result Performing Organization Address [facility] Co de Phone Number [facility] [address] [place] [address] * SODIUM, URINE RANDOM (10/17/2004 11:36 EDT) Sodium, Ur 199.0 mEq/L [facility] 10/17/2004 11:3 6 EDT 10/17/2004 11:37 EDT Hilton Álvarez MD URINALYSIS ORDERABLES Jacquie l Result Performing Organization Address [facility] de Phone Number [facility] [address] [place] [address] * OSMOLALITY (10/17/2004 11:35 EDT) Osmolality Cintia 305 MOS/KG SHERI [facility] 10/17/2004 11:3 5 EDT 10/17/2004 11:36 EDT Hilton Álvarez MD CHEMISTRY & BLOOD GAS ORDE RABLES Final Result Performing Organization Address [facility] Co de Phone Number [facility] [address] [place] [address] * (ABNORMAL) ELECTROLYTES (10/17/2004 11:35 EDT) Sodium [...] Álvarez MD CHEMISTRY & BLOOD GAS ORDEmerald [facility] Final Result [facility] [address] [place] [address] * CT HEAD WO CONTRAST (10/17/2004 11:04 [...] to double-lumen. 2. Fluoroscopic guidance used. /[facility] Narrative 03/06/2009 9:00 EDT S/P [...] ORDERABLES Jacquie l Result Performing Organization Address [facility] Co de Phone Number [facility] [address] [place] [address] * SODIUM, URINE RANDOM (10/17/2004 8:00 EDT) Sodium, Ur 66.0 mEq/L [facility] 10/17/2004 8:00 EDT 10/17/2004 8:04 EDT Hilton Álvarez MD URINALYSIS ORDERABLES Jacquie l Result Performing Organization Address [facility] Phone Number [facility] [address] [place] [address] * OSMOLALITY (10/17/2004 8:00 EDT) Osmolality Cintia 304 MOS/KG [facility] 10/17/2004 8:00 EDT 10/17/2004 8:05 EDT Hilton Álvarez MD CHEMISTRY & BLOOD GAS ORDE [facility] Final Result Performing Organization Address [facility] de Phone Number [facility] [address] [place] [address] * (ABNORMAL) ELECTROLYTES (10/17/2004 8:00 EDT) Sodium 143 136 - 145 mEq/L [facility] Potassium 3.6 3.6 - 5.2 mEq/L [facility] Chloride 111(H) 96 - 110 mEq/L [facility] CO2 26 24 - 32 mEq/L [facility] 10/17/2004 8:00 EDT 10/17/2004 8:05 EDT Hilton Álvarez MD CHEMISTRY & BLOOD GAS HERMES HANNON Final Result Performing Organization Address [facility] de Phone Number [facility] [address] [place] [address] * SODIUM (10/17/2004 6:13 EDT) Sodium 142 136 - 145 mEq/L [facility] 10/17/2004 6:13 EDT 10/17/2004 6:13 EDT Hilton Álvarez MD CHEMISTRY & BLOOD GAS ORDEmerald HANNON Final Result Performing Organization Address [facility] Phone Number [facility] [address] [place] [address] * OSMOLALITY, URINE (10/17/2004 3:58 EDT) Osmolality, Ur 578 MOS/KG MELONIETEA [facility] 10/17/2004 3:58 EDT 10/17/2004 3:58 EDT Hilton Álvarez MD URINALYSIS ORDERABLES Jcaquie l Result Performing Organization Address [facility] Phone Number [facility] [address] [place] [address] * SODIUM, URINE RANDOM (10/17/2004 3:58 EDT) Sodium, Ur 175.0 mEq/L [facility] 10/17/2004 3:58 EDT 10/17/2004 3:58 EDT us Hilton Álvarez MD URINALYSIS ORDERABLES Jacquie l Result Performing Organization Address [facility] Phone Number [facility] [address] [place] [address] * TOTAL BILIRUBIN (10/17/2004 3:57 EDT) Bilirubin, Total <0.5 0.0 - 1.4 mg/dl [facility] 10/17/2004 3:57 EDT 10/17/2004 3:57 EDT Hilton Álvarez MD CHEMISTRY & BLOOD GAS ORDE RABLES Final Result Performing Organization Address [facility] Phone Number [facility] [address] [place] [address] * GLUCOSE, SERUM (10/17/2004 3:57 EDT) Glucose, Serum 96 70 - 110 mg/dl [facility] 10/17/2004 3:57 EDT 10/17/2004 3:57 EDT Hilton Álvarez MD CHEMISTRY & BLOOD GAS ORDE RABLES Final Result Performing Organization Address [facility] de Phone Number [facility] [address] [place] [address] * PTT (10/17/2004 3:57 EDT) Pathologist [facility] PTT 26 23 - 34 secs [facility] Comment:Therapeutic Heparin range: 72-120 seconds 10/17/2004 3:57 EDT 10/17/2004 3:57 EDT Hilton Álvarez MD HEMATOLOGY & PF4 ORDERABLE S Final Result Performing Organization Address [facility] Phone Number [facility] [address] [place] [address] * (ABNORMAL) PROTIME (10/17/2004 3:57 EDT) Pro [...] ORDERABLE S Final Result Performing Organization Address [facility]/ZIP Co de Phone Number [facility] [address] [place] [address] * PHOSPHORUS (10/17/2004 3:57 EDT) Phosphorus 3.8 2.9 - 5.4 mg/dl [facility] 10/17/2004 3:57 EDT 10/17/2004 3:57 EDT Hilton Álvarez MD CHEMISTRY & BLOOD GAS ORDE RABLES Final Result Performing Organization Address [facility] de Phone Number [facility] [address] [place] [address] * OSMOLALITY (10/17/2004 3:57 EDT) Osmolality Cintia 296 MOS/KG [facility] 10/17/2004 3:57 EDT 10/17/2004 3:57 EDT Hilton Álvarez MD CHEMISTRY & BLOOD GAS ORDE RABLES Final Result Performing Organization Address [facility] de Phone Number [facility] [address] [place] [address] * BILIRUBIN (10/17/2004 3:57 EDT) Conjugated Bilirubin 0.0 0.0 - 0.3 mg/dl [facility] Unconjugated Bilirubin 0.2 0.1 - 1.1 mg/dl [facility] Calculated Total Bilirubin 0.2 0.0 - 1.4 mg/dl [facility] 10/17/2004 3:57 EDT 10/17/2004 3:57 EDT Hilton Álvarez MD CHEMISTRY & BLOOD GAS ORDE RABLES Final Result Performing Organization Address [facility] Co de Phone Number [facility] [address] [place] [address] * ELECTROLYTES (10/17/2004 3:57 EDT) Sodium 141 136 - 145 mEq/L [facility] Potassium 3.7 3.6 - 5.2 mEq/L [facility] Chloride 105 96 - 110 mEq/L [facility] CO2 28 24 - 32 mEq/L [facility] 10/17/2004 3:57 EDT 10/17/2004 3:57 EDT us Hilton Álvarez MD CHEMISTRY & BLOOD GAS ORDE RABREBECA Final Result Performing Organization Address [facility] de Phone Number [facility] [address] [place] [address] * BILIRUBIN DIRECT/INDIRECT (10/17/2004 3:57 EDT) Conjugated Bilirubin 0.0 - 0.3 mg/dl [facility] Unconjugated Bilirubin 0.1 - 1.1 mg/dl [facility] 10/17/2004 3:57 EDT 10/17/2004 3:57 EDT Hilton Álvarez MD CHEMISTRY & BLOOD GAS ORDE RABLES Final Result Performing Organization Address [facility] de Phone Number [facility] [address] [place] [address] * CREATININE (10/17/2004 3:57 EDT) Creatinine 0.8 0.6 - 1.2 mg/dl [facility] 10/17/2004 3:57 EDT 10/17/2004 3:57 EDT Hilton Álvarez MD HISTORICAL LAB FOR SQ LOAD Final Result Performing Organization Address [facility] Co de Phone Number [facility] [address] [place] [address] * (ABNORMAL) HEMAGRAM AND DIFFERENTIAL (10/17/2004 3:57 [...] LYNDSEY Final Result [facility] [address] [place] [address] * (ABNORMAL) CALCIUM (10/17/2004 3:57 EDT) Calcium 7.9(L) 8.5 - 10.5 mg/dl [facility] Calculated Calcium 9.4 8.5 - 10.5 mg/dl [facility] 10/17/2004 3:57 EDT 10/17/2004 3:57 EDT us Hilton Álvarez MD CHEMISTRY & BLOOD GAS ORDE RABLES Final Result [facility] [address] [place] [address] * BUN (10/17/2004 3:57 EDT) BUN 17 8 - 21 mg/dl [facility] 10/17/2004 3:57 EDT 10/17/2004 3:57 EDT us Hilton Álvarez MD CHEMISTRY & BLOOD GAS ORDE RABLES Final Result Performing Organization Address [facility] Co de Phone Number [facility] [address] [place] [address] * AST (10/17/2004 3:57 EDT) AST 27 16 - 38 U/L [facility] 10/17/2004 3:57 EDT 10/17/2004 3:57 EDT us Hilton Álvarez MD CHEMISTRY & BLOOD GAS ORDE RABREBECA Final Result Performing Organization Address [facility] Co de Phone Number [facility] [address] [place] [address] * (ABNORMAL) ALT (10/17/2004 3:57 EDT) ALT 59(H) 10 - 45 U/L [facility] 10/17/2004 3:57 EDT 10/17/2004 3:57 EDT us Hilton Álvarez MD CHEMISTRY & BLOOD GAS ORDE RABLES Final Result Performing Organization Address [facility] Co de Phone Number [facility] [address] [place] [address] * (ABNORMAL) ALKALINE PHOSPHATASE (10/17/2004 3:57 EDT) Total Alkaline Phosphatase 91(L) 130 - 525 U/L [facility] 10/17/2004 3:57 EDT 10/17/2004 3:57 EDT Hilton Álvarez MD CHEMISTRY & BLOOD GAS HERMES HANNON Final Result Performing Organization Address [facility] Phone Number [facility] [address] [place] [address] * SODIUM (10/17/2004 1:56 EDT) Sodium 141 136 - 145 mEq/L [facility] 10/17/2004 1:56 EDT 10/17/2004 1:56 EDT Hilton Álvarez MD CHEMISTRY & BLOOD GAS HERMES HANNON Final Result Performing Organization Address [facility] Phone Number [facility] [address] [place] [address] * OSMOLALITY, URINE (10/17/2004 0:10 EDT) Osmolality, Ur 620 MOS/KG [facility] 10/17/2004 0:10 EDT 10/17/2004 0:10 EDT Hilton Álvarez MD URINALYSIS ORDERABLES Jacquie l Result Performing Organization Address [facility] Phone Number [facility] [address] [place] [address] * SODIUM, URINE RANDOM (10/17/2004 0:10 EDT) Sodium, Ur 214.0 mEq/L [facility] 10/17/2004 0:10 EDT 10/17/2004 0:10 EDT us Hilton Álvarez MD URINALYSIS ORDERABLES Jacquie l Result Performing Organization Address [facility] Phone Number [facility] [address] [place] [address] * OSMOLALITY (10/17/2004 0:09 EDT) Osmolality Cintia 295 MOS/KG SHERI [facility] 10/17/2004 0:09 EDT 10/17/2004 0:09 EDT Hilton Álvarez MD CHEMISTRY & BLOOD GAS ORDE RABLES Final Result Performing Organization Address [facility] de Phone Number [facility] [address] [place] [address] * ELECTROLYTES (10/17/2004 0:09 EDT) Sodium 142 136 - 145 mEq/L [facility] Potassium 3.8 3.6 - 5.2 mEq/L [facility] Chloride 109 96 - 110 mEq/L [facility] CO2 28 24 - 32 mEq/L [facility] 10/17/2004 0:09 EDT 10/17/2004 0:09 EDT Hilton Álvarez MD CHEMISTRY & BLOOD GAS ORDE RABLES Final Result Performing Organization Address [facility] de Phone Number [facility] [address] [place] [address] * SODIUM (10/16/2004 21:56 EDT) Sodium 141 136 - 145 mEq/L [facility] 10/16/2004 21:5 6 EDT 10/16/2004 21:56 EDT Hilton Álvarez MD CHEMISTRY & BLOOD GAS ORDE RABLES Final Result Performing Organization Address [facility] de Phone Number [facility] [address] [place] [address] * SODIUM, URINE RANDOM (10/16/2004 20:15 EDT) Sodium, Ur 190.0 mEq/L [facility] 10/16/2004 20:1 5 EDT 10/16/2004 20:15 EDT Hilton Álvarez MD URINALYSIS ORDERABLES Jacquie l Result Performing Organization Address City/[facility]/ZIP Co de Phone Number [facility] [address] [place] [address] * OSMOLALITY (10/16/2004 20:05 EDT) Osmolality Cintia 295 MOS/KG SHERI [facility] 10/16/2004 20:0 5 EDT 10/16/2004 20:41 EDT Hilton Álvarez MD CHEMISTRY & BLOOD GAS ORDE RABREBECA Final Result Performing Organization Address [facility] Co de Phone Number [facility] [address] [place] [address] * ELECTROLYTES (10/16/2004 20:05 EDT) Sodium 143 136 - 145 mEq/L [facility] Potassium 3.7 3.6 - 5.2 mEq/L [facility] Chloride 108 96 - 110 mEq/L [facility] CO2 29 24 - 32 mEq/L [facility] 10/16/2004 20:0 5 EDT 10/16/2004 20:41 EDT Hilton Álvarez MD CHEMISTRY & BLOOD GAS ORDE RABLES Final Result Performing Organization Address [facility] Co de Phone Number [facility] [address] [place] [address] * SODIUM (10/16/2004 18:07 EDT) Sodium 144 136 - 145 mEq/L [facility] 10/16/2004 18:0 7 EDT 10/16/2004 18:07 EDT Hilton Álvarez MD CHEMISTRY & BLOOD GAS ORDE RABLES Final Result Performing Organization Address [facility]/ZIP Co de Phone Number [facility] [address] [place] [address] * OSMOLALITY, URINE (10/16/2004 16:27 EDT) Osmolality, Ur 338 MOS/KG HO[facility] 10/16/2004 16:2 7 EDT 10/16/2004 16:27 EDT us Hilton Álvarez MD URINALYSIS ORDERABLES Jacquie l Result Performing Organization Address [facility] de Phone Number [facility] [address] [place] [address] * SODIUM, URINE RANDOM (10/16/2004 16:27 EDT) Sodium, Ur 100.0 mEq/L [facility] 10/16/2004 16:2 7 EDT 10/16/2004 16:27 EDT Hilton Álvarez MD URINALYSIS ORDERABLES Jacquie l Result Performing Organization Address [facility] de Phone Number [facility] [address] [place] [address] * GLUCOSE, SERUM (10/16/2004 16:27 EDT) Glucose, Serum 95 70 - 110 mg/dl [facility] 10/16/2004 16:2 7 EDT 10/16/2004 16:27 EDT us Hilton Álvarez MD CHEMISTRY & BLOOD GAS ORDE RABLES Final Result Performing Organization Address [facility] de Phone Number [facility] [address] [place] [address] * OSMOLALITY (10/16/2004 16:27 EDT) Osmolality Cintia 297 MOS/KG [facility] 10/16/2004 16:2 7 EDT 10/16/2004 16:27 EDT us Hilton Álvarez MD CHEMISTRY & BLOOD GAS ORDE RABLES Final Result Performing Organization Address [facility] de Phone Number [facility] [address] [place] [address] * SODIUM (10/16/2004 16:27 EDT) Sodium 136 - 145 mEq/L [facility] 10/16/2004 16:2 7 EDT 10/16/2004 16:27 EDT Hilton Álvarez MD CHEMISTRY & BLOOD GAS ORDE RABLES Final Result Performing Organization Address [facility] Co de Phone Number [facility] [address] [place] [address] * ELECTROLYTES (10/16/2004 16:27 EDT) Sodium 143 136 - 145 mEq/L [facility] Potassium 3.8 3.6 - 5.2 mEq/L [facility] Chloride 109 96 - 110 mEq/L [facility] CO2 28 24 - 32 mEq/L [facility] 10/16/2004 16:2 7 EDT 10/16/2004 16:27 EDT Hilton Álvarez MD CHEMISTRY & BLOOD GAS ORDE RABLES Final Result Performing Organization Address [facility] de Phone Number [facility] [address] [place] [address] * SODIUM (10/16/2004 14:14 EDT) Sodium 141 136 - 145 mEq/L [facility] 10/16/2004 14:1 4 EDT 10/16/2004 14:14 EDT Hilton Álvarez MD CHEMISTRY & BLOOD GAS ORDE RABLES Final Result Performing Organization Address [facility] Co de Phone Number [facility] [address] [place] [address] * OSMOLALITY, URINE (10/16/2004 12:14 EDT) Osmolality, Ur 191 MOS/KG [facility] 10/16/2004 12:1 4 EDT 10/16/2004 12:14 EDT Hilton Álvarez MD URINALYSIS ORDERABLES Jacquie l Result Performing Organization Address [facility] Co de Phone Number [facility] [address] [place] [address] * SODIUM, URINE RANDOM (10/16/2004 12:14 EDT) Sodium, Ur 27.0 mEq/L [facility] 10/16/2004 12:1 4 EDT 10/16/2004 12:14 EDT Hilton Álvarez MD URINALYSIS ORDERABLES Jacquie l Result Performing Organization Address [facility] de Phone Number [facility] [address] [place] [address] * OSMOLALITY (10/16/2004 12:13 EDT) Osmolality Cintia 298 MOS/KG [facility] 10/16/2004 12:1 3 EDT 10/16/2004 12:13 EDT Hilton Álvarez MD CHEMISTRY & BLOOD GAS ORDE RABLES Final Result Performing Organization Address [facility] de Phone Number [facility] [address] [place] [address] * ELECTROLYTES (10/16/2004 12:13 EDT) Sodium 138 136 - 145 mEq/L [facility] Potassium 3.6 3.6 - 5.2 mEq/L [facility] Chloride 103 96 - 110 mEq/L [facility] CO2 27 24 - 32 mEq/L [facility] 10/16/2004 12:1 3 EDT 10/16/2004 12:13 EDT us Hilton Álvarez MD CHEMISTRY & BLOOD GAS ORDE RABLES Final Result Performing Organization Address [facility] Co de Phone Number [facility] [address] [place] [address] * (ABNORMAL) SODIUM (10/16/2004 10:21 EDT) Sodium 135(L) 136 - 145 mEq/L [facility] Comment:Heparinized plasma. 10/16/2004 10:2 1 EDT 10/16/2004 10:21 EDT Hilton Álvarez MD CHEMISTRY & BLOOD GAS ORDEmerald HANNON Final Result Performing Organization Address [facility] de Phone Number [facility] [address] [place] [address] * OSMOLALITY, URINE (10/16/2004 8:22 EDT) Osmolality, Ur 792 MOS/KG [facility] 10/16/2004 8:22 EDT 10/16/2004 8:22 EDT Hilton Álvarez MD URINALYSIS ORDERABLES Jacquie l Result Performing Organization Address [facility] de Phone Number [facility] [address] [place] [address] * SODIUM, URINE RANDOM (10/16/2004 8:22 EDT) Sodium, Ur 186.0 mEq/L [facility] 10/16/2004 8:22 EDT 10/16/2004 8:22 EDT Hilton Álvarez MD URINALYSIS ORDERABLES Jacquie l Result Performing Organization Address [facility] de Phone Number [facility] [address] [place] [address] * OSMOLALITY (10/16/2004 8:21 EDT) Osmolality Cintia 289 MOS/KG [facility] 10/16/2004 8:21 EDT 10/16/2004 8:21 EDT Hilton Álvarez MD CHEMISTRY & BLOOD GAS ORDE RABLES Final Result [facility] [address] [place] [address] * SODIUM (10/16/2004 8:21 EDT) Sodium 136 - 145 mEq/L [facility] 10/16/2004 8:21 EDT 10/16/2004 8:21 EDT Hilton Álvarez MD CHEMISTRY & BLOOD GAS ORDE RABLES Final Result Performing Organization Address [facility] Co de Phone Number [facility] [address] [place] [address] * (ABNORMAL) ELECTROLYTES (10/16/2004 8:21 EDT) Sodium 135(L) 136 - 145 mEq/L [facility] Potassium 3.9 3.6 - 5.2 mEq/L [facility] Chloride 101 96 - 110 mEq/L [facility] CO2 28 24 - 32 mEq/L [facility] 10/16/2004 8:21 EDT 10/16/2004 8:21 EDT Hilton Álvarez MD CHEMISTRY & BLOOD GAS ORDE RABLES Final Result Performing Organization Address [facility] Co de Phone Number [facility] [address] [place] [address] * SODIUM (10/16/2004 6:19 EDT) Sodium 137 136 - 145 mEq/L [facility] 10/16/2004 6:19 EDT 10/16/2004 6:19 EDT Hilton Álvarez MD CHEMISTRY & BLOOD GAS ORDE RABLES Final Result Performing Organization Address City/[facility]/ZIP Co de Phone Number [facility] [address] [place] [address] * GLUCOSE, SERUM (10/16/2004 4:25 EDT) Glucose, Serum 100 70 - 110 mg/dl [facility] 10/16/2004 4:25 EDT 10/16/2004 4:25 EDT Hilton Álvarez MD CHEMISTRY & BLOOD GAS ORDE RABLES Final Result Performing Organization Address [facility] de Phone Number [facility] [address] [place] [address] * PTT (10/16/2004 4:25 EDT) PTT 27 23 - 34 secs [facility] Comment:Therapeutic Heparin range: 72-120 seconds 10/16/2004 4:25 EDT 10/16/2004 4:25 EDT Hilton Álvarez MD HEMATOLOGY & PF4 ORDERABLE S Final Result Performing Organization Address [facility] Phone Number [facility] [address] [place] [address] * (ABNORMAL) PROTIME (10/16/2004 4:25 EDT) Pro [...] Final Result Performing Organization Address [facility] de Phone Number [facility] [address] [place] [address] * OSMOLALITY (10/16/2004 4:25 EDT) Osmolality Cintia 283 MOS/KG SHERI GARCIA 10/16/2004 4:25 EDT 10/16/2004 4:25 EDT Hilton Álvarez MD CHEMISTRY & BLOOD GAS ORDE RABLES Final Result Performing Organization Address [facility] de Phone Number [facility] [address] [place] [address] * ELECTROLYTES (10/16/2004 4:25 EDT) Sodium 138 136 - 145 mEq/L [facility] Potassium 3.7 3.6 - 5.2 mEq/L [facility] Chloride 103 96 - 110 mEq/L [facility] CO2 30 24 - 32 mEq/L [facility] 10/16/2004 4:25 EDT 10/16/2004 4:25 EDT Hilton Álvarez MD CHEMISTRY & BLOOD GAS ORDE RABLES Final Result Performing Organization Address [facility] de Phone Number [facility] [address] [place] [address] * CREATININE (10/16/2004 4:25 EDT) Creatinine 0.8 0.6 - 1.2 mg/dl [facility] 10/16/2004 4:25 EDT 10/16/2004 4:25 EDT Hilton Álvarez MD HISTORICAL LAB FOR SQ LOAD Final Result Performing Organization Address [facility] de Phone Number [facility] [address] [place] [address] * (ABNORMAL) HEMAGRAM AND DIFFERENTIAL (10/16/2004 4:25 [...] [facility] % Basophils 0.4 % [facility] ABS Neutrophils 8.11 K/cmm FLET ELLE [...] LYNDSEY Final Result Performing Organization Address [facility] Co de Phone Number [facility] [address] [place] [address] * BUN (10/16/2004 4:25 EDT) BUN 19 8 - 21 mg/dl [facility] 10/16/2004 4:25 EDT 10/16/2004 4:25 EDT Hilton Álvarez MD CHEMISTRY & BLOOD GAS ORDE RABLES Final Result Performing Organization Address [facility] Co de Phone Number [facility] [address] [place] [address] * OSMOLALITY, URINE (10/16/2004 4:25 EDT) Osmolality, Ur 845 MOS/KG [facility] 10/16/2004 4:25 EDT 10/16/2004 4:25 EDT Hilton Álvarez MD URINALYSIS ORDERABLES Jacquie l Result Performing Organization Address City/[facility]/ZIP Co de Phone Number [facility] [address] [place] [address] * SODIUM, URINE RANDOM (10/16/2004 4:25 EDT) Sodium, Ur 165.0 mEq/L [facility] 10/16/2004 4:25 EDT 10/16/2004 4:25 EDT Hilton Álvarez MD URINALYSIS ORDERABLES Jacquie l Result Performing Organization Address [facility] de Phone Number [facility] [address] [place] [address] * SODIUM (10/16/2004 2:11 EDT) Sodium 136 136 - 145 mEq/L [facility] 10/16/2004 2:11 EDT 10/16/2004 2:11 EDT Hilton Álvarez MD CHEMISTRY & BLOOD GAS ORDEmerald RABREBECA Final Result Performing Organization Address [facility] de Phone Number [facility] [address] [place] [address] * OSMOLALITY (10/16/2004 0:18 EDT) Osmolality Cintia 292 MOS/KG [facility] 10/16/2004 0:18 EDT 10/16/2004 0:18 EDT Hilton Álvarez MD CHEMISTRY & BLOOD GAS ORDEmerald RABREBECA Final Result Performing Organization Address [facility] Co de Phone Number [facility] [address] [place] [address] * ELECTROLYTES (10/16/2004 0:18 EDT) Sodium 139 136 - 145 mEq/L [facility] Potassium 3.6 3.6 - 5.2 mEq/L [facility] Chloride 104 96 - 110 mEq/L [facility] CO2 29 24 - 32 mEq/L [facility] 10/16/2004 0:18 EDT 10/16/2004 0:18 EDT Hilton Álvarez MD CHEMISTRY & BLOOD GAS ORDE RABREBECA Final Result Performing Organization Address [facility] de Phone Number [facility] [address] [place] [address] * OSMOLALITY, URINE (10/16/2004 0:18 EDT) Osmolality, Ur 276 MOS/KG MELONIETEA ROJAS [facility] 10/16/2004 0:18 EDT 10/16/2004 0:18 EDT Hilton Álvarez MD URINALYSIS ORDERABLES Jacquie l Result Performing Organization Address [facility] Phone Number [facility] [address] [place] [address] * SODIUM, URINE RANDOM (10/16/2004 0:18 EDT) Sodium, Ur 60.0 mEq/L [facility] 10/16/2004 0:18 EDT 10/16/2004 0:18 EDT Hilton Álvarez MD URINALYSIS ORDERABLES Jacquie l Result Performing Organization Address [facility] de Phone Number [facility] [address] [place] [address] * SODIUM (10/15/2004 21:55 EDT) Sodium 141 136 - 145 mEq/L [facility] 10/15/2004 21:5 5 EDT 10/15/2004 21:55 EDT us Hilton Álvarez MD CHEMISTRY & BLOOD GAS ORDE RABREBECA Final Result Performing Organization Address [facility] de Phone Number [facility] [address] [place] [address] * OSMOLALITY, URINE (10/15/2004 20:04 EDT) Osmolality, Ur 117 MOS/KG HOLLY ROJAS [facility] 10/15/2004 20:0 4 EDT 10/15/2004 20:04 EDT Hilton Álvarez MD URINALYSIS ORDERABLES Jacquie l Result Performing Organization Address [facility] de Phone Number [facility] [address] [place] [address] * SODIUM, URINE RANDOM (10/15/2004 20:04 EDT) Sodium, Ur 29.0 mEq/L [facility] 10/15/2004 20:0 4 EDT 10/15/2004 20:04 EDT Hilton Álvarez MD URINALYSIS ORDERABLES Jacquie l Result Performing Organization Address [facility] de Phone Number [facility] [address] [place] [address] * OSMOLALITY (10/15/2004 20:04 EDT) Osmolality Cintia 285 MOS/KG SHERI ALMEIDA [facility] 10/15/2004 20:0 4 EDT 10/15/2004 20:04 EDT Hilton Álvarez MD CHEMISTRY & BLOOD GAS HERMES HANNON Final Result Performing Organization Address [facility] de Phone Number [facility] [address] [place] [address] * ELECTROLYTES (10/15/2004 20:04 EDT) Sodium 136 136 - 145 mEq/L [facility] Potassium 3.6 3.6 - 5.2 mEq/L [facility] Chloride 99 96 - 110 mEq/L [facility] CO2 29 24 - 32 mEq/L [facility] 10/15/2004 20:0 4 EDT 10/15/2004 20:04 EDT Hilton Álvarez MD CHEMISTRY & BLOOD GAS HERMES HANNON Final Result Performing Organization Address City/[facility]/ZIP Co de Phone Number [facility] [address] [place] [address] * (ABNORMAL) HEMAGRAM (10/15/2004 20:04 EDT) WBC [...] ORDERABLE S Final Result Performing Organization Address [facility] Co de Phone Number [facility] [address] [place] [address] * (ABNORMAL) SODIUM (10/15/2004 18:23 EDT) Sodium 133(L) 136 - 145 mEq/L [facility] 10/15/2004 18:2 3 EDT 10/15/2004 18:27 EDT us Hilton Álvarez MD CHEMISTRY & BLOOD GAS HERMES HANNON Final Result Performing Organization Address City/[facility]/ZIP Co de Phone Number [facility] [address] [place] [address] * OSMOLALITY, URINE (10/15/2004 16:23 EDT) Osmolality, Ur 405 MOS/KG [facility] 10/15/2004 16:2 3 EDT 10/15/2004 16:23 EDT Hilton Álvarez MD URINALYSIS ORDERABLES Jacquie l Result Performing Organization Address [facility] Co de Phone Number [facility] [address] [place] [address] * SODIUM, URINE RANDOM (10/15/2004 16:23 EDT) Sodium, Ur 96.0 mEq/L [facility] 10/15/2004 16:2 3 EDT 10/15/2004 16:23 EDT Hilton Álvarez MD URINALYSIS ORDERABLES Jacquie l Result Performing Organization Address [facility] Phone Number [facility] [address] [place] [address] * GLUCOSE, SERUM (10/15/2004 16:22 EDT) Glucose, Serum 97 70 - 110 mg/dl [facility] 10/15/2004 16:2 2 EDT 10/15/2004 16:22 EDT Hilton Álvarez MD CHEMISTRY & BLOOD GAS ORDE RABLES Final Result Performing Organization Address [facility] de Phone Number [facility] [address] [place] [address] * OSMOLALITY (10/15/2004 16:22 EDT) Osmolality Cintia 269 MOS/KG SHERI ALMEIDA [facility] 10/15/2004 16:2 2 EDT 10/15/2004 16:22 EDT Hilton Álvarez MD CHEMISTRY & BLOOD GAS ORDE RABLES Final Result Performing Organization Address [facility] de Phone Number [facility] [address] [place] [address] * (ABNORMAL) ELECTROLYTES (10/15/2004 16:22 EDT) Sodium [...] RABLES Final Result [facility] [address] [place] [address] * (ABNORMAL) SODIUM (10/15/2004 14:04 EDT) Sodium 129(L) 136 - 145 mEq/L [facility] Comment:Heparinized plasma. 10/15/2004 14:0 4 EDT 10/15/2004 14:04 EDT Hilton Álvarez MD CHEMISTRY & BLOOD GAS ORDE RABLES Final Result Performing Organization Address [facility] Co de Phone Number [facility] [address] [place] [address] * OSMOLALITY (10/15/2004 12:06 EDT) Osmolality Cintia 275 MOS/KG [facility] 10/15/2004 12:0 6 EDT 10/15/2004 12:06 EDT Hilton Álvarez MD CHEMISTRY & BLOOD GAS ORDE RABLES Final Result Performing Organization Address City/[facility] Co de Phone Number [facility] [address] [place] [address] * SODIUM (10/15/2004 12:06 EDT) Sodium 136 - 145 mEq/L [facility] 10/15/2004 12:0 6 EDT 10/15/2004 12:06 EDT Hilton Álvarez MD CHEMISTRY & BLOOD GAS ORDEmerald HANNON Final Result Performing Organization Address [facility] de Phone Number [facility] [address] [place] [address] * (ABNORMAL) ELECTROLYTES (10/15/2004 12:06 EDT) Sodium [...] HERMES HANNON Final Result Performing Organization Address [facility] de Phone Number [facility] [address] [place] [address] * OSMOLALITY, URINE (10/15/2004 12:04 EDT) Pathologist [facility] Osmolality, Ur 840 MOS/KG [facility] 10/15/2004 12:0 4 EDT 10/15/2004 12:04 EDT Hilton Álvarez MD URINALYSIS ORDERABLES Jacquie l Result Performing Organization Address [facility] de Phone Number [facility] [address] [place] [address] * SODIUM, URINE RANDOM (10/15/2004 12:04 EDT) Sodium, Ur 243.0 mEq/L [facility] 10/15/2004 12:0 4 EDT 10/15/2004 12:04 EDT Hilton Álvarez MD URINALYSIS ORDERABLES Jacquie l Result Performing Organization Address [facility] Co de Phone Number [facility] [address] [place] [address] * (ABNORMAL) SODIUM (10/15/2004 10:07 EDT) Sodium 130(L) 136 - 145 mEq/L [facility] Comment:Heparinized plasma. 10/15/2004 10:0 7 EDT 10/15/2004 10:07 EDT Hilton Álvarez MD CHEMISTRY & BLOOD GAS [facility] Final Result Performing Organization Address [facility] Co de Phone Number [facility] [address] [place] [address] * OSMOLALITY, URINE (10/15/2004 8:17 EDT) Osmolality, Ur 791 MOS/KG [facility] 10/15/2004 8:17 EDT 10/15/2004 8:17 EDT Hilton Álvarez MD URINALYSIS ORDERABLES Jacquie l Result Performing Organization Address [facility] Co de Phone Number [facility] [address] [place] [address] * SODIUM, URINE RANDOM (10/15/2004 8:17 EDT) Sodium, Ur 254.0 mEq/L [facility] 10/15/2004 8:17 EDT 10/15/2004 8:17 EDT Hilton Álvarez MD URINALYSIS ORDERABLES Jacquie l Result Performing Organization Address [facility] Co de Phone Number [facility] [address] [place] [address] * URINE MICROSCOPIC (10/15/2004 8:17 EDT) WBC, [...] ORDERABLES Jacquie nur Result Performing Organization Address [facility] de Phone Number [facility] [address] [place] [address] * (ABNORMAL) URINALYSIS (10/15/2004 8:17 EDT) Color, UA Yellow [facility] Clarity, UA Clear [facility] Glucose, UA Norm NORM [facility] Bilirubin, UA Neg NEG [facility] Ketones, UA Neg NEG [facility] Specific Shedd, Urine 1.020 1.005 - 1.02 [facility] [...] ORDERABLES Jacquie l Result Performing Organization Address [facility] Co de Phone Number [facility] [address] [place] [address] * TESTS ADDED BY PHONE (10/15/2004 8:17 EDT) Tests to be added UA [facility] 10/15/2004 8:17 EDT 10/15/2004 8:17 EDT Hilton Álvarez MD CHEMISTRY & BLOOD GAS ORDE RABLES Final Result Performing Organization Address [facility] de Phone Number [facility] [address] [place] [address] * OSMOLALITY (10/15/2004 8:16 EDT) Osmolality Cintia 271 MOS/KG SHERI ALMEIDA [facility] 10/15/2004 8:16 EDT 10/15/2004 8:16 EDT Hilton Álvarez MD CHEMISTRY & BLOOD GAS ORDE RABLES Final Result Performing Organization Address [facility] de Phone Number [facility] [address] [place] [address] * (ABNORMAL) ELECTROLYTES (10/15/2004 8:16 EDT) Pathologist [facility] Sodium 131(L) 136 - 145 mEq/L [facility] Potassium 3.6 3.6 - 5.2 mEq/L [facility] Chloride 98 96 - 110 mEq/L [facility] CO2 29 24 - 32 mEq/L [facility] 10/15/2004 8:16 EDT 10/15/2004 8:16 EDT Hilton Álvarez MD CHEMISTRY & BLOOD GAS ORDE RABLES Final Result Performing Organization Address [facility] de Phone Number [facility] [address] [place] [address] * OSMOLALITY, URINE (10/15/2004 4:21 EDT) Osmolality, Ur 587 MOS/KG [facility] 10/15/2004 4:21 EDT 10/15/2004 4:21 EDT Hilton Álvarez MD URINALYSIS ORDERABLES Jacquie l Result Performing Organization Address City/[facility] Co de Phone Number [facility] [address] [place] [address] * SODIUM, URINE RANDOM (10/15/2004 4:21 EDT) Pathologist [facility] Sodium, Ur 189.0 mEq/L [facility] 10/15/2004 4:21 EDT 10/15/2004 4:21 EDT Hilton Álvarez MD URINALYSIS ORDERABLES Jacquie l Result Performing Organization Address [facility] Co de Phone Number [facility] [address] [place] [address] * GLUCOSE, SERUM (10/15/2004 4:21 EDT) [facility] Glucose, Serum 110 70 - 110 mg/dl [facility] 10/15/2004 4:21 EDT 10/15/2004 4:21 EDT Hilton Álvarez MD CHEMISTRY & BLOOD GAS ORDE RABLES Final Result Performing Organization Address [facility] de Phone Number [facility] [address] [place] [address] * PTT (10/15/2004 4:21 EDT) [facility] PTT 27 23 - 34 secs [facility] Comment:Therapeutic Heparin range: 72-120 seconds 10/15/2004 4:21 EDT 10/15/2004 4:21 EDT Hilton Álvarez MD HEMATOLOGY & PF4 ORDERABLE S Final Result Performing Organization Address [facility] Co de Phone Number [facility] [address] [place] [address] * (ABNORMAL) PROTIME (10/15/2004 4:21 EDT) [facility] Pro Time 14.9(H) 12.3 - 14.7 secs [facility] I.N.R. 1.1 0.9 - 1.1 Ratio [facility] Comment: Moderate Intensity Coumadin INR = 2.0-3.0 Adjustments in anticoagulant therapy dose should be based upon the INR and NOT the Pro Time. 10/15/2004 4:21 EDT 10/15/2004 4:21 EDT Hilton Álvarez MD HEMATOLOGY & PF4 ORDERABLE S Final Result Performing Organization Address [facility] de Phone Number [facility] [address] [place] [address] * OSMOLALITY (10/15/2004 4:21 EDT) Pathologist [facility] Osmolality Cintia 270 MOS/KG SH[facility] 10/15/2004 4:21 EDT 10/15/2004 4:21 EDT Hilton Álvarez MD CHEMISTRY & BLOOD GAS ORDEmerald HANNON Final Result Performing Organization Address [facility] de Phone Number [facility] [address] [place] [address] * (ABNORMAL) ELECTROLYTES (10/15/2004 4:21 EDT) [facility] Sodium 126(L) 136 - 145 mEq/L [facility] Potassium 3.5(L) 3.6 - 5.2 mEq/L [facility] Chloride 90(L) 96 - 110 mEq/L [facility] CO2 30 24 - 32 mEq/L [facility] 10/15/2004 4:21 EDT 10/15/2004 4:21 EDT Hilton Álvarez MD CHEMISTRY & BLOOD GAS ORDEmerald HANNON Final Result Performing Organization Address [facility] de Phone Number [facility] [address] [place] [address] * CREATININE (10/15/2004 4:21 EDT) [facility] Creatinine 0.6 0.6 - 1.2 mg/dl [facility] 10/15/2004 4:21 EDT 10/15/2004 4:21 EDT us Hilton Álvarez MD HISTORICAL LAB FOR SQ LOAD Final Result Performing Organization Address City/[facility]/ZIP Co de Phone Number [facility] [address] [place] [address] * (ABNORMAL) HEMAGRAM AND DIFFERENTIAL (10/15/2004 4:21 [...] ORDER LYNDSEY Final Result Performing Organization Address City/[facility]/ZIP Co de Phone Number [facility] [address] [place] [address] * BUN (10/15/2004 4:21 EDT) BUN 12 8 - 21 mg/dl [facility] 10/15/2004 4:21 EDT 10/15/2004 4:21 EDT Hilton Álvarez MD CHEMISTRY & BLOOD GAS ORDE RABLES Final Result Performing Organization Address [facility] Phone Number [facility] [address] [place] [address] * OSMOLALITY, URINE (10/15/2004 0:55 EDT) Osmolality, Ur 646 MOS/KG HOLLY ROJAS [facility] 10/15/2004 0:55 EDT 10/15/2004 0:55 EDT Hilton Álvarez MD URINALYSIS ORDERABLES Jacquie l Result Performing Organization Address [facility] de Phone Number [facility] [address] [place] [address] * SODIUM, URINE RANDOM (10/15/2004 0:55 EDT) Sodium, Ur 258.0 mEq/L [facility] 10/15/2004 0:55 EDT 10/15/2004 0:55 EDT Hilton Álvarez MD URINALYSIS ORDERABLES Jacquie l Result Performing Organization Address [facility] de Phone Number [facility] [address] [place] [address] * OSMOLALITY (10/15/2004 0:54 EDT) Osmolality Cintia 266 MOS/KG MELONIENoe ELLE [facility] 10/15/2004 0:54 EDT 10/15/2004 0:54 EDT Hilton Álvarez MD CHEMISTRY & BLOOD GAS ORDE RABLES Final Result Performing Organization Address [facility] de Phone Number [facility] [address] [place] [address] * (ABNORMAL) ELECTROLYTES (10/15/2004 0:54 EDT) Sodium 127(L) 136 - 145 mEq/L [facility] Potassium 3.6 3.6 - 5.2 mEq/L [facility] Chloride 92(L) 96 - 110 mEq/L [facility] CO2 29 24 - 32 mEq/L [facility] 10/15/2004 0:54 EDT 10/15/2004 0:54 EDT Hilton Álvarez MD CHEMISTRY & BLOOD GAS ORDE RIDDHI Final Result Performing Organization Address City/[facility]/ZIP Co de Phone Number [facility] [address] [place] [address] * SODIUM, URINE RANDOM (10/14/2004 22:05 EDT) Sodium, Ur 148.0 mEq/L [facility] 10/14/2004 22:0 5 EDT 10/14/2004 22:05 EDT Hilton Álvarez MD URINALYSIS ORDERABLES Jacquie l Result Performing Organization Address [facility] Co de Phone Number [facility] [address] [place] [address] * (ABNORMAL) SODIUM (10/14/2004 21:44 EDT) Sodium 130(L) 136 - 145 mEq/L [facility] 10/14/2004 21:4 4 EDT 10/14/2004 22:05 EDT Hilton Álvarez MD CHEMISTRY & BLOOD GAS ORDE RABLES Final Result Performing Organization Address [facility] Co de Phone Number [facility] [address] [place] [address] * (ABNORMAL) GLUCOSE, SERUM (10/14/2004 20:25 EDT) Glucose, Serum 125(H) 70 - 110 mg/dl [facility] 10/14/2004 20:2 5 EDT 10/14/2004 20:25 EDT Hilton Álvarez MD CHEMISTRY & BLOOD GAS ORDE RABLES Final Result Performing Organization Address [facility] de Phone Number [facility] [address] [place] [address] * OSMOLALITY (10/14/2004 20:25 EDT) Osmolality Cintia 272 MOS/KG [facility] 10/14/2004 20:2 5 EDT 10/14/2004 20:25 EDT Hilton Álvraez MD CHEMISTRY & BLOOD GAS ORDE RABLES Final Result Performing Organization Address [facility] Phone Number [facility] [address] [place] [address] * (ABNORMAL) ELECTROLYTES (10/14/2004 20:25 EDT) Sodium 130(L) 136 - 145 mEq/L [facility] Potassium 3.7 3.6 - 5.2 mEq/L [facility] Chloride 94(L) 96 - 110 mEq/L [facility] CO2 29 24 - 32 mEq/L [facility] 10/14/2004 20:2 5 EDT 10/14/2004 20:25 EDT Hilton Álvarez MD CHEMISTRY & BLOOD GAS ORDE RABLES Final Result Performing Organization Address [facility] de Phone Number [facility] [address] [place] [address] * CREATININE (10/14/2004 20:25 EDT) Creatinine 0.6 0.6 - 1.2 mg/dl [facility] 10/14/2004 20:2 5 EDT 10/14/2004 20:25 EDT Hilton Álvarez MD HISTORICAL LAB FOR SQ LOAD Final Result [facility] [address] [place] [address] * BUN (10/14/2004 20:25 EDT) BUN 13 8 - 21 mg/dl [facility] 10/14/2004 20:2 5 EDT 10/14/2004 20:25 EDT Hilton Álvarez MD CHEMISTRY & BLOOD GAS ORDE RABLES Final Result Performing Organization Address [facility]/ZIP Co de Phone Number [facility] [address] [place] [address] * OSMOLALITY, URINE (10/14/2004 20:25 EDT) Osmolality, Ur 697 MOS/KG HO[facility] ROJ[facility] 10/14/2004 20:2 5 EDT 10/14/2004 20:25 EDT Hilton Álvarez MD URINALYSIS ORDERABLES Jacquie l Result Performing Organization Address [facility] Co de Phone Number [facility] [address] [place] [address] * SODIUM, URINE RANDOM (10/14/2004 20:25 EDT) Sodium, Ur 275.0 mEq/L [facility] 10/14/2004 20:2 5 EDT 10/14/2004 20:25 EDT Hilton Álvarez MD URINALYSIS ORDERABLES Jacquie l Result Performing Organization Address [facility] Co de Phone Number [facility] [address] [place] [address] * (ABNORMAL) GLUCOSE, SERUM (10/14/2004 15:58 EDT) Glucose, Serum 113(H) 70 - 110 mg/dl [facility] 10/14/2004 15:5 8 EDT 10/14/2004 16:03 EDT Hilton Álvarez MD CHEMISTRY & BLOOD GAS ORDEmerald HANNON Final Result Performing Organization Address [facility] de Phone Number [facility] [address] [place] [address] * OSMOLALITY (10/14/2004 15:58 EDT) Osmolality Cintia 285 MOS/KG [facility] 10/14/2004 15:5 8 EDT 10/14/2004 16:03 EDT Hilton Álvarez MD CHEMISTRY & BLOOD GAS HERMES HANNON Final Result Performing Organization Address [facility] Phone Number [facility] [address] [place] [address] * (ABNORMAL) ELECTROLYTES (10/14/2004 15:58 EDT) Sodium 133(L) 136 - 145 mEq/L [facility] Potassium 3.9 3.6 - 5.2 mEq/L [facility] Chloride 100 96 - 110 mEq/L [facility] CO2 27 24 - 32 mEq/L [facility] 10/14/2004 15:5 8 EDT 10/14/2004 16:03 EDT Hilton Álvarez MD CHEMISTRY & BLOOD GAS HERMES HANNON Final Result Performing Organization Address [facility] de Phone Number [facility] [address] [place] [address] * OSMOLALITY, URINE (10/14/2004 15:57 EDT) Osmolality, Ur 823 MOS/KG [facility] 10/14/2004 15:5 7 EDT 10/14/2004 16:02 EDT Hilton Álvarez MD URINALYSIS ORDERABLES Jacquie l Result Performing Organization Address [facility]/ZIP Co de Phone Number [facility] [address] [place] [address] * SODIUM, URINE RANDOM (10/14/2004 15:57 EDT) Sodium, Ur 265.0 mEq/L [facility] 10/14/2004 15:5 7 EDT 10/14/2004 16:02 EDT us Hilton Álvarez MD URINALYSIS ORDERABLES Jacquie liudmila Result [facility] [address] [place] [address] * CT HEAD WO CONTRAST (10/14/2004 13:25 [...] in the left ethmoid air cells. /[facility] Trice Scott MD IMG CT ORDERABLES Final Re sult * OSMOLALITY, URINE (10/14/2004 11:49 EDT) Osmolality, Ur 888 MOS/KG [facility] 10/14/2004 11:4 9 EDT 10/14/2004 11:49 EDT Hilton Álvarze MD URINALYSIS ORDERABLES Jacquie l Result [facility] [address] [place] [address] * SODIUM, URINE RANDOM (10/14/2004 11:49 EDT) Sodium, Ur 249.0 mEq/L [facility] 10/14/2004 11:4 9 EDT 10/14/2004 11:49 EDT us Hilton Álvarez MD URINALYSIS ORDERABLES Jacquie l Result Performing Organization Address City/[facility]/ZIP Co de Phone Number [facility] [address] [place] [address] * OSMOLALITY (10/14/2004 11:48 EDT) Osmolality Cintia 283 MOS/KG SHERI ALMEIDA [facility] 10/14/2004 11:4 8 EDT 10/14/2004 11:48 EDT Hilton Álvarez MD CHEMISTRY & BLOOD GAS ORDEmerald HANNON Final Result Performing Organization Address [facility] Co de Phone Number [facility] [address] [place] [address] * (ABNORMAL) ELECTROLYTES (10/14/2004 11:48 EDT) Sodium [...] ORDEmerald HANNON Final Result Performing Organization Address [facility] Co de Phone Number [facility] [address] [place] [address] * OSMOLALITY, URINE (10/14/2004 8:01 EDT) Osmolality, Ur 899 MOS/KG [facility] 10/14/2004 8:01 EDT 10/14/2004 8:01 EDT Hilton Álvarez MD URINALYSIS ORDERABLES Jacquie l Result Performing Organization Address City/[facility]/ZIP Co de Phone Number [facility] [address] [place] [address] * SODIUM, URINE RANDOM (10/14/2004 8:01 EDT) Sodium, Ur 287.0 mEq/L [facility] 10/14/2004 8:01 EDT 10/14/2004 8:01 EDT Hilton Álvarez MD URINALYSIS ORDERABLES Jacquie l Result Performing Organization Address [facility] de Phone Number [facility] [address] [place] [address] * OSMOLALITY (10/14/2004 8:01 EDT) Osmolality Cintia 286 MOS/KG [facility] 10/14/2004 8:01 EDT 10/14/2004 8:01 EDT Hilton Álvarez MD CHEMISTRY & BLOOD GAS ORDE RABREBECA Final Result Performing Organization Address [facility] Phone Number [facility] [address] [place] [address] * (ABNORMAL) ELECTROLYTES (10/14/2004 8:01 EDT) Sodium 139 136 - 145 mEq/L [facility] Potassium 3.2(L) 3.6 - 5.2 mEq/L [facility] Chloride 105 96 - 110 mEq/L [facility] CO2 28 24 - 32 mEq/L [facility] 10/14/2004 8:01 EDT 10/14/2004 8:01 EDT Hilton Álvarez MD CHEMISTRY & BLOOD GAS ORDE RABLES Final Result Performing Organization Address [facility] de Phone Number [facility] [address] [place] [address] * GLUCOSE, SERUM (10/14/2004 4:22 EDT) Glucose, Serum 99 70 - 110 mg/dl [facility] 10/14/2004 4:22 EDT 10/14/2004 4:22 EDT Hilton Álvarez MD CHEMISTRY & BLOOD GAS ORDE RABLES Final Result Performing Organization Address [facility] de Phone Number [facility] [address] [place] [address] * PTT (10/14/2004 4:22 EDT) PTT 25 23 - 34 secs [facility] Comment:Therapeutic Heparin range: 72-120 seconds 10/14/2004 4:22 EDT 10/14/2004 4:22 EDT Hilton Álvarez MD HEMATOLOGY & PF4 ORDERABLE S Final Result Performing Organization Address [facility] Phone Number [facility] [address] [place] [address] * (ABNORMAL) PROTIME (10/14/2004 4:22 EDT) Pro [...] ORDERABLE S Final Result Performing Organization Address [facility] de Phone Number [facility] [address] [place] [address] * OSMOLALITY (10/14/2004 4:22 EDT) Osmolality Cintia 291 MOS/KG SH[facility]I [facility] 10/14/2004 4:22 EDT 10/14/2004 4:22 EDT Hilton Álvarez MD CHEMISTRY & BLOOD GAS ORDE RABLES Final Result Performing Organization Address [facility] de Phone Number [facility] [address] [place] [address] * (ABNORMAL) ELECTROLYTES (10/14/2004 4:22 EDT) Pathologist [facility] Sodium 137 136 - 145 mEq/L [facility] Potassium 3.3(L) 3.6 - 5.2 mEq/L [facility] Chloride 103 96 - 110 mEq/L [facility] CO2 31 24 - 32 mEq/L [facility] 10/14/2004 4:22 EDT 10/14/2004 4:22 EDT Hilton Álvarez MD CHEMISTRY & BLOOD GAS ORDE RABLES Final Result Performing Organization Address [facility] de Phone Number [facility] [address] [place] [address] * CREATININE (10/14/2004 4:22 EDT) Pathologist [facility] Creatinine 0.8 0.6 - 1.2 mg/dl [facility] 10/14/2004 4:22 EDT 10/14/2004 4:22 EDT Hilton Álvarez MD HISTORICAL LAB FOR SQ LOAD Final Result Performing Organization Address [facility] de Phone Number [facility] [address] [place] [address] * (ABNORMAL) HEMAGRAM AND DIFFERENTIAL (10/14/2004 4:22 EDT) Pathologist [facility] WBC 11.30 4.5 - 13.0 K/cmm [...] ORDER LYNDSEY Final Result Performing Organization Address [facility] de Phone Number [facility] [address] [place] [address] * BUN (10/14/2004 4:22 EDT) BUN 16 8 - 21 mg/dl [facility] 10/14/2004 4:22 EDT 10/14/2004 4:22 EDT Hilton Álvarez MD CHEMISTRY & BLOOD GAS ORDE RABLES Final Result Performing Organization Address [facility] de Phone Number [facility] [address] [place] [address] * REFRACTOMETER SPECIFIC GRAVITY, URINE (10/14/2004 4:21 EDT) Refractometer SG,Urine 1.019 1.005 - 1.02 [facility] 10/14/2004 4:21 EDT 10/14/2004 4:21 EDT Hilton Álvarez MD URINALYSIS ORDERABLES Jacquie l Result Performing Organization Address [facility] Co de Phone Number [facility] [address] [place] [address] * OSMOLALITY, URINE (10/14/2004 4:21 EDT) Osmolality, Ur 852 MOS/KG MELONIETEA HER [facility] 10/14/2004 4:21 EDT 10/14/2004 4:21 EDT Hilton Álvarez MD URINALYSIS ORDERABLES Jacquie l Result Performing Organization Address [facility] Phone Number [facility] [address] [place] [address] * SODIUM, URINE RANDOM (10/14/2004 4:21 EDT) Sodium, Ur 306.0 mEq/L [facility] 10/14/2004 4:21 EDT 10/14/2004 4:21 EDT Hilton Álvarez MD URINALYSIS ORDERABLES Jacquie l Result Performing Organization Address [facility] de Phone Number [facility] [address] [place] [address] * GLUCOSE, SERUM (10/14/2004 0:22 EDT) Pathologist [facility] Glucose, Serum 91 70 - 110 mg/dl [facility] 10/14/2004 0:22 EDT 10/14/2004 0:22 EDT Hilton Álvarez MD CHEMISTRY & BLOOD GAS HERMES HANNON Final Result Performing Organization Address [facility] de Phone Number [facility] [address] [place] [address] * OSMOLALITY (10/14/2004 0:22 EDT) Osmolality Cintia 290 MOS/KG MELONIENoe ALMEIDA [facility] 10/14/2004 0:22 EDT 10/14/2004 0:22 EDT Hilton Álvarez MD CHEMISTRY & BLOOD GAS ORDE RABLES Final Result Performing Organization Address [facility] Co de Phone Number [facility] [address] [place] [address] * (ABNORMAL) ELECTROLYTES (10/14/2004 0:22 EDT) Sodium 141 136 - 145 mEq/L [facility] Potassium 3.4(L) 3.6 - 5.2 mEq/L [facility] Chloride 106 96 - 110 mEq/L [facility] CO2 30 24 - 32 mEq/L [facility] 10/14/2004 0:22 EDT 10/14/2004 0:22 EDT Hilton Álvarez MD CHEMISTRY & BLOOD GAS HERMES HANNON Final Result Performing Organization Address [facility] de Phone Number [facility] [address] [place] [address] * OSMOLALITY, URINE (10/14/2004 0:22 EDT) Osmolality, Ur 767 MOS/KG HOLLY ROJAS [facility] 10/14/2004 0:22 EDT 10/14/2004 0:22 EDT Hilton Álvarez MD URINALYSIS ORDERABLES Jacquie l Result Performing Organization Address [facility] de Phone Number [facility] [address] [place] [address] * SODIUM, URINE RANDOM (10/14/2004 0:22 EDT) Sodium, Ur 293.0 mEq/L [facility] 10/14/2004 0:22 EDT 10/14/2004 0:22 EDT Hilton Álvarez MD URINALYSIS ORDERABLES Jacquie l Result Performing Organization Address [facility] Co de Phone Number [facility] [address] [place] [address] * SODIUM (10/13/2004 22:02 EDT) Sodium 143 136 - 145 mEq/L [facility] 10/13/2004 22:0 2 EDT 10/13/2004 22:02 EDT Hilton Álvarez MD CHEMISTRY & BLOOD GAS ORDE RABLES Final Result Performing Organization Address [facility] de Phone Number [facility] [address] [place] [address] * OSMOLALITY (10/13/2004 20:19 EDT) Pathologist [facility] Osmolality Cintia 300 MOS/KG SHER[facility] 10/13/2004 20:1 9 EDT 10/13/2004 20:19 EDT Hilton Álvarez MD CHEMISTRY & BLOOD GAS ORDE RABLES Final Result Performing Organization Address [facility] de Phone Number [facility] [address] [place] [address] * (ABNORMAL) ELECTROLYTES (10/13/2004 20:19 EDT) Pathologist [facility] Sodium 147(H) 136 - 145 mEq/L [facility] Potassium 3.5(L) 3.6 - 5.2 mEq/L [facility] Chloride 111(H) 96 - 110 mEq/L [facility] CO2 29 24 - 32 mEq/L [facility] 10/13/2004 20:1 9 EDT 10/13/2004 20:19 EDT Hilton Álvarez MD CHEMISTRY & BLOOD GAS ORDE RABLES Final Result Performing Organization Address [facility] de Phone Number [facility] [address] [place] [address] * (ABNORMAL) REFRACTOMETER SPECIFIC GRAVITY, URINE (10/13/2004 20:16 EDT) Pathologist [facility] Refractometer SG,Urine 1.002(L) 1.005 - 1.02 [facility] Comment: Refractometer specific gravity Results greater than 1.035 suggest possible interference from glucose or radiographic dye. 10/13/2004 20:1 6 EDT 10/13/2004 20:16 EDT Hilton Álvarez MD URINALYSIS ORDERABLES Jacquie l Result Performing Organization Address [facility] Co de Phone Number [facility] [address] [place] [address] * OSMOLALITY, URINE (10/13/2004 20:16 EDT) Osmolality, Ur 87 MOS/KG MELONIETEA ROJAS [facility] 10/13/2004 20:1 6 EDT 10/13/2004 20:16 EDT Hilton Álvarez MD URINALYSIS ORDERABLES Jacquie l Result Performing Organization Address [facility] de Phone Number [facility] [address] [place] [address] * SODIUM, URINE RANDOM (10/13/2004 20:16 EDT) Sodium, Ur 18.0 mEq/L [facility] 10/13/2004 20:1 6 EDT 10/13/2004 20:16 EDT Hilton Álvarez MD URINALYSIS ORDERABLES Jacquie l Result Performing Organization Address [facility] de Phone Number [facility] [address] [place] [address] * SODIUM (10/13/2004 18:38 EDT) Sodium 144 136 - 145 mEq/L [facility] 10/13/2004 18:3 8 EDT 10/13/2004 18:38 EDT us Hilton Álvarez MD CHEMISTRY & BLOOD GAS ORDE RIDDHI Final Result Performing Organization Address [facility] Co de Phone Number [facility] [address] [place] [address] * SODIUM, URINE RANDOM (10/13/2004 17:34 EDT) Sodium, Ur 17.0 mEq/L [facility] 10/13/2004 17:3 4 EDT 10/13/2004 17:34 EDT us Hilton Álvarez MD URINALYSIS ORDERABLES Jacquie l Result Performing Organization Address [facility] de Phone Number [facility] [address] [place] [address] * OSMOLALITY, URINE (10/13/2004 15:42 EDT) Osmolality, Ur 145 MOS/KG HOLLY ROJAS [facility] 10/13/2004 15:4 2 EDT 10/13/2004 15:42 EDT us Hilton Álvarez MD URINALYSIS ORDERABLES Jacquie l Result Performing Organization Address [facility] Phone Number [facility] [address] [place] [address] * SODIUM, URINE RANDOM (10/13/2004 15:42 EDT) Sodium, Ur 16.0 mEq/L [facility] 10/13/2004 15:4 2 EDT 10/13/2004 15:42 EDT us Hilton Álvarez MD URINALYSIS ORDERABLES Jacquie l Result Performing Organization Address [facility] Phone Number [facility] [address] [place] [id number] * (ABNORMAL) PHENYTOIN (10/13/2004 15:33 EDT) Phenytoin [...] ORDE RABLES Final Result Performing Organization Address [facility] de Phone Number [facility] [address] [place] [address] * OSMOLALITY (10/13/2004 15:33 EDT) Osmolality Cintia 294 MOS/KG [facility] 10/13/2004 15:3 3 EDT 10/13/2004 15:33 EDT Hilton Álvarez MD CHEMISTRY & BLOOD GAS ORDE RABLES Final Result Performing Organization Address [facility] de Phone Number [facility] [address] [place] [address] * (ABNORMAL) ELECTROLYTES (10/13/2004 15:33 EDT) Sodium 139 136 - 145 mEq/L [facility] Potassium 3.5(L) 3.6 - 5.2 mEq/L [facility] Chloride 100 96 - 110 mEq/L [facility] CO2 31 24 - 32 mEq/L [facility] 10/13/2004 15:3 3 EDT 10/13/2004 15:33 EDT Hilton Álvarez MD CHEMISTRY & BLOOD GAS ORDE RABLES Final Result Performing Organization Address [facility] de Phone Number [facility] [address] [place] [address] * OSMOLALITY (10/13/2004 12:01 EDT) Osmolality Cintia 280 MOS/KG SHERI ALMEIDA [facility] 10/13/2004 12:0 1 EDT 10/13/2004 12:01 EDT Hilton Álvarez MD CHEMISTRY & BLOOD GAS ORDE RABLES Final Result Performing Organization Address [facility]/ZIP Co de Phone Number [facility] [address] [place] [address] * (ABNORMAL) ELECTROLYTES (10/13/2004 12:01 EDT) Sodium 135(L) 136 - 145 mEq/L [facility] Potassium 3.7 3.6 - 5.2 mEq/L [facility] Chloride 100 96 - 110 mEq/L [facility] CO2 30 24 - 32 mEq/L [facility] 10/13/2004 12:0 1 EDT 10/13/2004 12:01 EDT Hilton Álvarez MD CHEMISTRY & BLOOD GAS ORDE RABLES Final Result Performing Organization Address [facility] de Phone Number [facility] [address] [place] [address] * BACTERIAL CULTURE/SMEAR, RESPIRATORY (10/13/2004 12:00 EDT) Specimen Description Sputum [facility] Gram Smear Result Many Polys Few Squamous epithelial cells Alveolar macrophages present Respiratory epithelial cells present No bacteria seen [facility] Result No growth [facility] Report Status Final [id number] [facility] 10/13/2004 12:0 0 EDT 10/13/2004 12:21 EDT Hilton Álvarez MD MICROBIOLOGY - GENERAL ORD ERABLES Final Result Performing Organization Address [facility] de Phone Number [facility] [address] [place] [address] * UA REFLEX (10/13/2004 12:00 EDT) UA Billing Microscopic not indicated. [facility] 10/13/2004 12:0 0 EDT 10/13/2004 12:00 EDT Hilton Álvarez MD URINALYSIS ORDERABLES Jacquie l Result Performing Organization Address [facility] Co de Phone Number [facility] [address] [place] [address] * SODIUM, URINE RANDOM (10/13/2004 12:00 EDT) Sodium, Ur 49.0 mEq/L [facility] 10/13/2004 12:0 0 EDT 10/13/2004 12:00 EDT Hilton Álvarez MD URINALYSIS ORDERABLES Jacquie l Result Performing Organization Address [facility] de Phone Number [facility] [address] [place] [address] * URINALYSIS (10/13/2004 12:00 EDT) Color, UA Yellow [facility] Clarity, UA Cloudy [facility] Glucose, UA Norm NORM [facility] Bilirubin, UA Neg NEG [facility] ER [facility] Ketones, UA Neg NEG [facility] Specific Shedd, Urine 1.020 1.005 - 1.02 [facility] [...] ORDERABLES Jacquie l Result Performing Organization Address [facility] de Phone Number [facility] [address] [place] [address] * CT HEAD WO CONTRAST (10/13/2004 10:50 [...] growth [facility] Report Status Final [id number] [facility] 10/13/2004 10:2 5 EDT 10/13/2004 11:42 EDT Hilton Álvarez MD MICROBIOLOGY - GENERAL ORD ERABLES Final Result Performing Organization Address [facility] Co de Phone Number [facility] [address] [place] [address] * BACTERIAL CULTURE, BLOOD (10/13/2004 10:15 EDT) Specimen Description Blood Arterial Line [facility] Result No growth [facility] Report Status Final [id number] [facility] 10/13/2004 10:1 5 EDT 10/13/2004 11:41 EDT Hilton Álvarez MD MICROBIOLOGY - GENERAL ORD ERABLES Final Result Performing Organization Address [facility] Co de Phone Number [facility] [address] [place] [address] * (ABNORMAL) REFRACTOMETER SPECIFIC GRAVITY, URINE (10/13/2004 8:19 EDT) Pathologist [facility] Refractometer SG,Urine 1.052(H) 1.005 - 1.02 [facility] Comment: Refractometer specific gravity Results greater than 1.035 suggest possible interference from glucose or radiographic dye. 10/13/2004 8:19 EDT 10/13/2004 8:19 EDT Hilton Álvarez MD URINALYSIS ORDERABLES Jacquie l Result Performing Organization Address [facility] Co de Phone Number [facility] [address] [place] [address] * OSMOLALITY (10/13/2004 8:16 EDT) Osmolality Cintia 287 MOS/KG SHERI [facility] 10/13/2004 8:16 EDT 10/13/2004 8:16 EDT Hilton Álvarez MD CHEMISTRY & BLOOD GAS [facility]DE [facility] Final Result Performing Organization Address [facility] de Phone Number [facility] [address] [place] [address] * (ABNORMAL) ELECTROLYTES (10/13/2004 8:16 EDT) Pathologist [facility] Sodium 133(L) 136 - 145 mEq/L [facility] Potassium 3.8 3.6 - 5.2 mEq/L [facility] Chloride 99 96 - 110 mEq/L [facility] CO2 27 24 - 32 mEq/L [facility] 10/13/2004 8:16 EDT 10/13/2004 8:16 EDT Hilton Álvarez MD CHEMISTRY & BLOOD GAS ORDE [facility] Final Result Performing Organization Address [facility] de Phone Number [facility] [address] [place] [address] * PORTABLE CHEST 1 VIEW (10/13/2004 7:00 [...] Result * PTT (10/13/2004 5:52 EDT) Pathologist [facility] PTT 27 23 - 34 secs [facility] Comment:Therapeutic Heparin range: 72-120 seconds 10/13/2004 5:52 EDT 10/13/2004 5:52 EDT Result [facility] Hilton Álvarez MD HEMATOLOGY & PF4 ORDERABLE S Final Result [facility] [address] [place] [address] * (ABNORMAL) PROTIME (10/13/2004 5:52 EDT) Pro [...] ORDERABLE S Final Result Performing Organization Address City/[facility]/ZIP Co de Phone Number [facility] [address] [place] [address] * CREATININE (10/13/2004 5:52 EDT) Creatinine 0.7 0.6 - 1.2 mg/dl [facility] 10/13/2004 5:52 EDT 10/13/2004 5:52 EDT us Hilton Álvarez MD HISTORICAL LAB FOR SQ LOAD Final Result Performing Organization Address [facility] de Phone Number [facility] [address] [place] [address] * (ABNORMAL) HEMAGRAM (10/13/2004 5:52 EDT) WBC [...] ORDERABLE S Final Result Performing Organization Address City/[facility] Co de Phone Number [facility] [address] [place] [address] * BUN (10/13/2004 5:52 EDT) BUN 16 8 - 21 mg/dl [facility] 10/13/2004 5:52 EDT 10/13/2004 5:52 EDT Hilton Álvarez MD CHEMISTRY & BLOOD GAS HERMES HANNON Final Result Performing Organization Address 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 10/13/2004 4:33 EDT 10/13/2004 4:33 EDT us Hilton Álvarez MD URINALYSIS ORDERABLES Jacquie l Result Performing Organization Address [facility] Co de Phone Number [facility] [address] [place] [address] * SODIUM, URINE RANDOM (10/13/2004 4:33 EDT) Sodium, Ur 168.0 mEq/L [facility] 10/13/2004 4:33 EDT 10/13/2004 4:33 EDT Hilton Álvarez MD URINALYSIS ORDERABLES Jacquie l Result Performing Organization Address [facility] de Phone Number [facility] [address] [place] [address] * OSMOLALITY (10/13/2004 4:15 EDT) Osmolality Cintia 287 MOS/KG SH[facility]I [facility] 10/13/2004 4:15 EDT 10/13/2004 4:33 EDT Hilton Álvarez MD CHEMISTRY & BLOOD GAS ORDEmerald HANNON Final Result Performing Organization Address [facility] de Phone Number [facility] [address] [place] [address] * (ABNORMAL) ELECTROLYTES (10/13/2004 4:15 EDT) Sodium 135(L) 136 - 145 mEq/L [facility] Potassium 3.7 3.6 - 5.2 mEq/L [facility] Chloride 101 96 - 110 mEq/L [facility] CO2 25 24 - 32 mEq/L [facility] 10/13/2004 4:15 EDT 10/13/2004 4:33 EDT Hilton Álvarez MD CHEMISTRY & BLOOD GAS ORDE RABREBECA Final Result Performing Organization Address [facility] de Phone Number [facility] [address] [place] [address] * SODIUM (10/13/2004 2:03 EDT) Sodium 138 136 - 145 mEq/L [facility] 10/13/2004 2:03 EDT 10/13/2004 2:03 EDT Hilton Álvarez MD CHEMISTRY & BLOOD GAS [facility] Final Result Performing Organization Address [facility] de Phone Number [facility] [address] [place] [address] * (ABNORMAL) BLOOD GAS, G3 ISTAT (10/13/2004 [...] [facility] Sample Type Arterial [facility] professional soccer player ID [id number] Test Performed by Respiratory [facility] 10/13/2004 0:01 EDT 10/13/2004 5:02 EDT Hilton Álvarez MD CHEMISTRY & [facility]LOOD GAS [facility] Final Result Performing Organization Address [facility] de Phone Number [facility] [address] [place] [address] * PORTABLE CHEST 1 VIEW (10/12/2004 23:30 EDT) Anatomical Region Laterality Modality Other 10/12/2004 23:3 0 EDT Impressions 03/02/2009 13:28 EDT IMPRESSION: 1. New mild right lower lobe atelectasis. 2. Satisfactory positioning of tubes. 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 The endotracheal [...] left ethmoid sinuses. The ventricles are age-appropriate. /[facility] Narrative 03/02/2009 13:28 EDT S/P SUPRACELLAR TUMOR [...] left ethmoid sinuses. The ventricles are age-appropriate. /[facility] us Tony Gómez MD IMG CT ORDERABLES Final R esult * OSMOLALITY, URINE (10/12/2004 23:00 EDT) Osmolality, Ur 803 MOS/KG MELONIE [facility] 10/12/2004 23:0 0 EDT 10/12/2004 23:25 EDT Hilton Ávlarez MD URINALYSIS ORDERABLES Jacquie nur Result [facility] [address] [place] [address] * SODIUM, URINE RANDOM (10/12/2004 23:00 EDT) Sodium, Ur 115.0 mEq/L [facility] 10/12/2004 23:0 0 EDT 10/12/2004 23:25 EDT Hilton Álvarez MD URINALYSIS ORDERABLES Jacquie l Result Performing Organization Address [facility] de Phone Number [facility] [address] [place] [address] * PTT (10/12/2004 23:00 EDT) Pathologist [facility] PTT 28 23 - 34 secs [facility] Comment:Therapeutic Heparin range: 72-120 seconds 10/12/2004 23:0 0 EDT 10/12/2004 23:25 EDT Hilton Álvarez MD HEMATOLOGY & PF4 ORDERABLE S Final Result Performing Organization Address [facility] Phone Number [facility] [address] [place] [address] * (ABNORMAL) PROTIME (10/12/2004 23:00 EDT) Pro [...] ORDERABLE S Final Result Performing Organization Address [facility] de Phone Number [facility] [address] [place] [address] * OSMOLALITY (10/12/2004 23:00 EDT) Osmolality Cintia 294 MOS/KG SHERI ALMEIDA [facility] 10/12/2004 23:0 0 EDT 10/12/2004 23:25 EDT Hilton Álvarez MD CHEMISTRY & BLOOD GAS ORDE RABLES Final Result Performing Organization Address [facility] Co de Phone Number [facility] [address] [place] [address] * ELECTROLYTES (10/12/2004 23:00 EDT) Sodium 136 136 - 145 mEq/L [facility] Potassium 3.9 3.6 - 5.2 mEq/L [facility] Chloride 103 96 - 110 mEq/L [facility] CO2 26 24 - 32 mEq/L [facility] 10/12/2004 23:0 0 EDT 10/12/2004 23:25 EDT Hilton Álvarez MD CHEMISTRY & BLOOD GAS ORDE RABLES Final Result Performing Organization Address [facility] de Phone Number [facility] [address] [place] [address] * CREATININE (10/12/2004 23:00 EDT) Creatinine 0.8 0.6 - 1.2 mg/dl [facility] 10/12/2004 23:0 0 EDT 10/12/2004 23:25 EDT Hilton Álvarez MD HISTORICAL LAB FOR SQ LOAD Final Result Performing Organization Address [facility] de Phone Number [facility] [address] [place] [address] * (ABNORMAL) HEMAGRAM (10/12/2004 23:00 EDT) WBC [...] ORDERABLE S Final Result Performing Organization Address [facility] Co de Phone Number [facility] [address] [place] [address] * BUN (10/12/2004 23:00 EDT) BUN 18 8 - 21 mg/dl [facility] 10/12/2004 23:0 0 EDT 10/12/2004 23:25 EDT Hilton Álvarez MD CHEMISTRY & BLOOD GAS ORDE [facility] Final Result Performing Organization Address 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 VESSELS CT ANGIOGRAPHY OF THE [place]: 10/12/2004, 22:35 PM IMPRESSIONS: Anatomical variation of the [place], but no vascular occlusion is demonstrated. CLINICAL HISTORY: Status post craniopharyngeal resection with clipping bleeding vessel. Evaluate intracranial circulation. TECHNIQUE: Dynamic contrast enhanced scans of the [place] were obtained with off line [...] R/O EVAL. VESSELS CT ANGIOGRAPHY OF THE [place]: 10/12/2004, 22:35 PM IMPRESSIONS: Anatomical variation of the [place], but no vascular occlusion is demonstrated. CLINICAL HISTORY: Status post craniopharyngeal resection with clipping bleeding vessel. Evaluate intracranial circulation. TECHNIQUE: Dynamic contrast enhanced scans of the [place] were obtained with off line [...] Sodium, i-STAT 135(L) 136 - 145 mEq/L [facility] Potassium, i-STAT 4.1 3.6 - 5.2 mEq/L [facility] Hematocrit,iSTA T 22(LL) 37 - 49 % [facility] Temperature Body Temp not noted; 37 degrees assumed. 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 [facility] 10/12/2004 16:3 9 EDT 10/13/2004 7:33 EDT us Hilton Álvarez MD CHEMISTRY & BLOOD GAS HERMES HANNON Final Result Performing Organization Address [facility] de Phone Number [facility] [address] [place] [address] * (ABNORMAL) BLOOD GAS, EG6 ISTAT (10/12/2004 [...] [facility] Sample Type Arterial [facility] professional soccer player ID [id number] Test performed by Anesthesia. [facility] 10/12/2004 15:2 9 EDT 10/13/2004 7:32 EDT us Hilton Álvarez MD CHEMISTRY & BLOOD GAS HERMES HANNON Final Result Performing Organization Address [facility] de Phone Number [facility] [address] [place] [address] * GLUCOSE, GLUCOMETER (10/12/2004 15:21 EDT) Glucose, Fingerstick 109 70 - 110 mg/dl [facility] Inventory Control Clerk ID [id number] Test Performed by Nursing Services [facility] 10/12/2004 15:2 1 EDT 10/13/2004 7:27 EDT us Hilton Álvarez MD CHEMISTRY & BLOOD GAS ORDE RABLES Final Result [facility] [address] [place] [address] * SURGICAL PATHOLOGY (10/12/2004 0:00 EDT) Pathology Report: SURGICAL PATHOLOGY REPORT Reports generated via electronic interface contain original data; however they are lacking the format of the original report. Caution should be taken when reading/interpreti ng unformatted reports. Name: ? MIGUEL ANGEL BURGOS ? Accession #: ? [id number] ? : ? 1990 (Age: 14) ??M [...] x 0.6 x 0.2 cm in aggregate. Supervisory It Specialist tissue is submitted for scrape preparation and [...] ??(Dr. Sanchez)/klb End of Report [facility] 10/12/2004 10/13/2004 10: 08 EDT Hilton Álvarez MD PATHOLOGY ORDERABLES Final Result [facility] [address] [place] [address] * CHEST PA (10/10/2004 14:35 EDT) Anatomical [...] The bony structures appear normal for age. /[facility] Procedure Note Delgado Valdes Jr., MD / Maxi Kirby MD - 03/03/2009 CYST R/O PICC PLACEMENT RIGHT BASILIC PA CHEST, 10/10/04 HISTORY: Patient status post PICC placement. FINDINGS: There is a right PIC catheter with its tip in the lower SVC near the right atrial junction. The cardiomediastinal silhouette is normal and the lungs are clear. The bony structures appear normal for age. /[facility] Hilton Álvarez MD IMG DIAGNOSTIC IMAGING ORD [...] to the most recent transsphenoidal surgery. [facility] Narrative 03/02/2009 11:36 EDT S/P [...] to the most recent transsphenoidal surgery. [facility] us Hilton Álvarez MD IMG MRI ORDERABLES Final R esult * REFRACTOMETER SPECIFIC GRAVITY, URINE (10/08/2004 16:00 EDT) Refractometer SG,Urine 1.022 1.005 - 1.02 [facility] Comment:Refractometer specif ic gravity 10/08/2004 16:0 0 EDT 10/08/2004 16:14 EDT Hilton Álvarez MD URINALYSIS ORDERABLES Jacquie l Result Performing Organization Address [facility] Phone Number [facility] [address] [place] [address] * OSMOLALITY, URINE (10/08/2004 8:30 EDT) Osmolality, Ur 906 MOS/KG [facility] 10/08/2004 8:30 EDT 10/08/2004 8:40 EDT Hilton Álvarez MD URINALYSIS ORDERABLES Jacquie l Result Performing Organization Address [facility] Phone Number [facility] [address] [place] [address] * SODIUM, URINE RANDOM (10/08/2004 8:30 EDT) Pathologist [facility] Sodium, Ur 137.0 [facility]Eq/L [facility] 10/08/2004 8:30 EDT 10/08/2004 8:40 EDT us Hilton Álvarez MD URINALYSIS ORDERABLES Jacquie l Result Performing Organization Address [facility] de Phone Number [facility] [address] [place] [address] * OSMOLALITY, URINE (10/08/2004 0:30 EDT) Osmolality, Ur 727 MOS/KG [facility] 10/08/2004 0:30 EDT 10/08/2004 0:32 EDT us Hilton Álvarez MD URINALYSIS ORDERABLES Jacquie l Result Performing Organization Address [facility] de Phone Number [facility] [address] [place] [address] * SODIUM, URINE RANDOM (10/08/2004 0:30 EDT) [facility] Sodium, Ur 186.0 mEq/L [facility] 10/08/2004 0:30 EDT 10/08/2004 0:32 EDT Hilton Álvarez MD URINALYSIS ORDERABLES Jacquie l Result Performing Organization Address [facility] de Phone Number [facility] [address] [place] [address] * OSMOLALITY (10/08/2004 0:25 EDT) [facility] Osmolality Cintia 302 MOS/KG [facility] 10/08/2004 0:25 EDT 10/08/2004 0:32 EDT Hilton Álvarez MD CHEMISTRY & BLOOD GAS ORDE RABLES Final Result Performing Organization Address [facility] de Phone Number [facility] [address] [place] [address] * (ABNORMAL) ELECTROLYTES (10/08/2004 0:25 EDT) [facility] Sodium 145 136 - 145 mEq/L [facility] Potassium 3.2(L) 3.6 - 5.2 mEq/L [facility] Chloride 116(H) 96 - 110 mEq/L [facility] CO2 19(L) 24 - 32 mEq/L [facility] 10/08/2004 0:25 EDT 10/08/2004 0:32 EDT Hilton Álvarez MD CHEMISTRY & BLOOD GAS ORDE RABLES Final Result Performing Organization Address [facility] de Phone Number [facility] [address] [place] [address] * REFRACTOMETER SPECIFIC GRAVITY, URINE (10/07/2004 19:00 EDT) Refractometer SG,Urine 1.021 1.005 - 1.02 [facility] Comment:Refractometer specif ic gravity 10/07/2004 19:0 0 EDT 10/07/2004 19:38 EDT Hilton Álvarez MD URINALYSIS ORDERABLES Jacquie l Result Performing Organization Address [facility] Phone Number [facility] [address] [place] [address] * OSMOLALITY, URINE (10/07/2004 19:00 EDT) Osmolality, Ur 817 MOS/KG HOLLY [facility] 10/07/2004 19:0 0 EDT 10/07/2004 19:38 EDT Hilton Álvarez MD URINALYSIS ORDERABLES Jacquie l Result Performing Organization Address [facility] Phone [place] [address] * SODIUM, URINE RANDOM (10/07/2004 19:00 EDT) Sodium, Ur 272.0 mEq/L [facility] 10/07/2004 19:0 0 EDT 10/07/2004 19:38 EDT Hilton Álvarez MD URINALYSIS ORDERABLES Jacquie l Result Performing Organization Address [facility] Phone Number [facility] [address] [place] [address] * OSMOLALITY (10/07/2004 19:00 EDT) Osmolality Cintia 300 MOS/KG SHERI ALMEIDA [facility] 10/07/2004 19:0 0 EDT 10/07/2004 19:37 EDT Hilton Álvarez MD CHEMISTRY & BLOOD GAS HERMES HANNON Final Result Performing Organization Address [facility] Phone Number [facility] [address] [place] [address] * ELECTROLYTES (10/07/2004 19:00 EDT) Sodium 144 136 - 145 mEq/L [facility] Potassium 3.8 3.6 - 5.2 mEq/L [facility] Chloride 109 96 - 110 mEq/L [facility] CO2 25 24 - 32 mEq/L [facility] 10/07/2004 19:0 0 EDT 10/07/2004 19:37 EDT Hilton Álvarez MD CHEMISTRY & BLOOD GAS [facility]DE [facility] Final Result Performing Organization Address [facility] de Phone Number [facility] [address] [place] [address] * REFRACTOMETER SPECIFIC GRAVITY, URINE (10/07/2004 11:47 EDT) Pathologist [facility] Refractometer SG,Urine 1.019 1.005 - 1.02 [facility] Comment: Refractometer specific gravity Results greater than 1.035 suggest possible interference from glucose or radiographic dye. 10/07/2004 11:4 7 EDT 10/07/2004 11:47 EDT Hilton Álvarez MD URINALYSIS ORDERABLES Jacquie l Result Performing Organization Address [facility] de Phone Number [facility] [address] [place] [address] * OSMOLALITY, URINE (10/07/2004 11:47 EDT) Pathologist [facility] Osmolality, Ur 801 MOS/KG HOLLY [facility] 10/07/2004 11:4 7 EDT 10/07/2004 11:47 EDT Hilton Álvarez MD URINALYSIS ORDERABLES Jacquie l Result Performing Organization Address [facility] Co de Phone Number [facility] [address] [place] [address] * SODIUM, URINE RANDOM (10/07/2004 11:47 EDT) Sodium, Ur 198.0 mEq/L [facility] 10/07/2004 11:4 7 EDT 10/07/2004 11:47 EDT us Hilton Álvarez MD URINALYSIS ORDERABLES Jacquie l Result Performing Organization Address [facility] de Phone Number [facility] [address] [place] [address] * REFRACTOMETER SPECIFIC GRAVITY, URINE (10/07/2004 4:20 EDT) Refractometer SG,Urine 1.017 1.005 - 1.02 [facility] Comment:Refractometer specif ic gravity 10/07/2004 4:20 EDT 10/07/2004 4:20 EDT us Hilton Álvarez MD URINALYSIS ORDERABLES Jacquie l Result Performing Organization Address [facility] de Phone Number [facility] [address] [place] [address] * OSMOLALITY, URINE (10/07/2004 4:20 EDT) Osmolality, Ur 682 MOS/KG [facility]LLY [facility] 10/07/2004 4:20 EDT 10/07/2004 4:20 EDT us Hilton Álvarez MD URINALYSIS ORDERABLES Jacquie l Result Performing Organization Address [facility] Co de Phone Number [facility] [address] [place] [address] * SODIUM, URINE RANDOM (10/07/2004 4:20 EDT) Sodium, Ur 122.0 mEq/L [facility] 10/07/2004 4:20 EDT 10/07/2004 4:20 EDT us Hilton Álvarez MD URINALYSIS ORDERABLES Jacquie l Result Performing Organization Address City/[facility]/ZIP Co de Phone Number [facility] [address] [place] [address] * OSMOLALITY (10/07/2004 4:20 EDT) Pathologist [facility] Osmolality Cintia 304 MOS/KG SHERI [facility] 10/07/2004 4:20 EDT 10/07/2004 4:20 EDT Hilton Álvarez MD CHEMISTRY & BLOOD GAS ORDE [facility] Final Result Performing Organization Address [facility] de Phone Number [facility] [address] [place] [address] * (ABNORMAL) ELECTROLYTES (10/07/2004 4:20 EDT) [facility] Sodium 145 136 - 145 mEq/L [facility] Potassium 3.9 3.6 - 5.2 mEq/L [facility] Chloride 111(H) 96 - 110 mEq/L [facility] CO2 25 24 - 32 mEq/L [facility] 10/07/2004 4:20 EDT 10/07/2004 4:20 EDT Hilton Álvarez MD CHEMISTRY & BLOOD GAS ORDE RABREBECA Final Result Performing Organization Address [facility] Phone Number [facility] [address] [place] [address] * REFRACTOMETER SPECIFIC GRAVITY, URINE (10/06/2004 18:33 EST) [facility] Refractometer SG,Urine 1.021 1.005 - 1.02 [facility] Comment: Refractometer specific gravity Results greater than 1.035 suggest possible interference from glucose or radiographic dye. 10/06/2004 18:3 3 EST 10/06/2004 18:33 EST Hilton Álvarez MD URINALYSIS ORDERABLES Jacquie l Result Performing Organization Address [facility] de Phone Number [facility] [address] [place] [address] * OSMOLALITY, URINE (10/06/2004 18:33 EST) Osmolality, Ur 782 MOS/KG HOLLY HER [facility] 10/06/2004 18:3 3 EST 10/06/2004 18:33 EST Hilton Álvarez MD URINALYSIS ORDERABLES Jacquie l Result Performing Organization Address [facility] de Phone Number [facility] [address] [place] [address] * SODIUM, URINE RANDOM (10/06/2004 18:33 EST) Sodium, Ur 138.0 mEq/L [facility] 10/06/2004 18:3 3 EST 10/06/2004 18:33 EST Hilton Álvarez MD URINALYSIS ORDERABLES Jacquie l Result Performing Organization Address [facility] Phone Number [facility] [address] [place] [address] * OSMOLALITY (10/06/2004 18:32 EST) Osmolality Cintia 303 MOS/KG SHERI ALMEIDA [facility] 10/06/2004 18:3 2 EST 10/06/2004 18:32 EST Hilton Álvarez MD CHEMISTRY & BLOOD GAS HERMES HANNON Final Result Performing Organization Address [facility] Phone Number [facility] [address] [place] [address] * (ABNORMAL) ELECTROLYTES (10/06/2004 18:32 EST) Sodium [...] RABLES Final Result [facility] [address] [place] [address] * OSMOLALITY (10/06/2004 14:45 EST) Osmolality Cintia 306 MOS/KG MELONIENoe ELLE [facility] 10/06/2004 14:4 5 EST 10/06/2004 14:51 EST us Hilton Álvarez MD CHEMISTRY & BLOOD GAS [facility]DE [facility] Final Result Performing Organization Address City/[facility] Co de Phone Number [facility] [address] [place] [address] * (ABNORMAL) ELECTROLYTES (10/06/2004 14:45 EST) Pathologist [facility] Sodium 146(H) 136 - 145 mEq/L [facility] Potassium 3.7 3.6 - 5.2 mEq/L [facility] Chloride 111(H) 96 - 110 mEq/L [facility] CO2 26 24 - 32 mEq/L [facility] 10/06/2004 14:4 5 EST 10/06/2004 14:51 EST Hilton Álvarez MD CHEMISTRY & BLOOD GAS ORDE RABLES Final Result Performing Organization Address City/[facility] Co de Phone Number [facility] [address] [place] [address] * REFRACTOMETER SPECIFIC GRAVITY, URINE (10/06/2004 14:45 EST) Pathologist [facility] Refractometer SG,Urine 1.021 1.005 - 1.02 [facility] 10/06/2004 14:4 5 EST 10/06/2004 14:52 EST us Hilton Álvarez MD URINALYSIS ORDERABLES Jacquie l Result [facility] [address] [place] [address] * OSMOLALITY, URINE (10/06/2004 14:45 EST) Osmolality, Ur 762 MOS/KG [facility] 10/06/2004 14:4 5 EST 10/06/2004 14:52 EST Hilton Álvarez MD URINALYSIS ORDERABLES Jacquie l Result Performing Organization Address [facility] Phone Number [facility] [address] [place] [address] * SODIUM, URINE RANDOM (10/06/2004 14:45 EST) Sodium, Ur 132.0 mEq/L [facility] 10/06/2004 14:4 5 EST 10/06/2004 14:52 EST Hilton Álvarez MD URINALYSIS ORDERABLES Jacquie l Result Performing Organization Address [facility] Phone Number [facility] [address] [place] [address] * OSMOLALITY (10/06/2004 11:00 EST) Osmolality Cintia 299 MOS/KG SHERI ALMEIDA [facility] 10/06/2004 11:0 0 EST 10/06/2004 11:08 EST Hilton Álvarez MD CHEMISTRY & BLOOD GAS HERMES [facility]ANNON Final Result Performing Organization Address [facility] de Phone Number [facility] [address] [place] [address] * ELECTROLYTES (10/06/2004 11:00 EST) Sodium 145 136 - 145 mEq/L [facility] Potassium 3.6 3.6 - 5.2 mEq/L [facility] Chloride 110 96 - 110 mEq/L [facility] CO2 25 24 - 32 mEq/L [facility] 10/06/2004 11:0 0 EST 10/06/2004 11:08 EST Hilton Álvarez MD CHEMISTRY & BLOOD GAS HERMES HANNON Final Result Performing Organization Address [facility] Co de Phone Number [place] [address] * REFRACTOMETER SPECIFIC GRAVITY, URINE (10/06/2004 11:00 EST) Refractometer SG,Urine 1.019 1.005 - 1.02 [facility] 10/06/2004 11:0 0 EST 10/06/2004 11:10 EST Hilton Álvarez MD URINALYSIS ORDERABLES Jacquie l Result Performing Organization Address [facility] Phone [place] [address] * OSMOLALITY, URINE (10/06/2004 11:00 EST) Osmolality, Ur 735 MOS/KG [facility] 10/06/2004 11:0 0 EST 10/06/2004 11:10 EST Hilton Álvarez MD URINALYSIS ORDERABLES Jacquie l Result Performing Organization Address [facility] de Phone [place] [address] * SODIUM, URINE RANDOM (10/06/2004 11:00 EST) Sodium, Ur 140.0 mEq/L [facility] 10/06/2004 11:0 0 EST 10/06/2004 11:10 EST Hilton Álvarez MD URINALYSIS ORDERABLES Jacquie l Result Performing Organization Address [facility] Co de Phone [place] [address] * OSMOLALITY, URINE (10/06/2004 6:40 EST) Osmolality, Ur 522 MOS/KG [facility] 10/06/2004 6:40 EST 10/06/2004 7:03 EST Hilton Álvarez MD URINALYSIS ORDERABLES Jacquie l Result Performing Organization Address [facility] Phone Number [facility] [address] [place] [address] * SODIUM, URINE RANDOM (10/06/2004 6:40 EST) Sodium, Ur 92.0 mEq/L [facility] 10/06/2004 6:40 EST 10/06/2004 7:03 EST Hilton Álvarez MD URINALYSIS ORDERABLES Jacquie l Result Performing Organization Address [facility] Phone Number [facility] [address] [place] [address] * OSMOLALITY (10/06/2004 6:40 EST) Osmolality Cintia 301 MOS/KG [facility] 10/06/2004 6:40 EST 10/06/2004 7:01 EST Hilton Álvarez MD CHEMISTRY & BLOOD GAS ORDE RABLES Final Result Performing Organization Address [facility] Phone Number [facility] [address] [place] [address] * ELECTROLYTES (10/06/2004 6:40 EST) Sodium 142 136 - 145 mEq/L [facility] Potassium 3.9 3.6 - 5.2 mEq/L [facility] Chloride 108 96 - 110 mEq/L [facility] CO2 25 24 - 32 mEq/L [facility] 10/06/2004 6:40 EST 10/06/2004 7:01 EST Hilton Álvarez MD CHEMISTRY & BLOOD GAS ORDE RABLES Final Result Performing Organization Address [facility] Co de Phone Number [facility] [address] [place] [address] * OSMOLALITY (10/06/2004 2:44 EST) Osmolality Cintia 295 MOS/KG [facility] 10/06/2004 2:44 EST 10/06/2004 2:44 EST Hilton Álvarez MD CHEMISTRY & BLOOD GAS ORDE RABLES Final Result Performing Organization Address [facility] de Phone Number [facility] [address] [place] [address] * ELECTROLYTES (10/06/2004 2:44 EST) Sodium 143 136 - 145 mEq/L [facility] Potassium 4.0 3.6 - 5.2 mEq/L [facility] Chloride 107 96 - 110 mEq/L [facility] CO2 28 24 - 32 mEq/L [facility] 10/06/2004 2:44 EST 10/06/2004 2:44 EST Hilton Álvarez MD CHEMISTRY & BLOOD GAS ORDE RABLES Final Result Performing Organization Address [facility] Phone Number [facility] [address] [place] [address] * OSMOLALITY, URINE (10/06/2004 2:43 EST) Osmolality, Ur 628 MOS/KG MELONIETEA [facility] 10/06/2004 2:43 EST 10/06/2004 2:43 EST Hilton Álvarez MD URINALYSIS ORDERABLES Jacquie l Result Performing Organization Address [facility] de Phone Number [facility] [address] [place] [address] * SODIUM, URINE RANDOM (10/06/2004 2:43 EST) Sodium, Ur 115.0 mEq/L [facility] 10/06/2004 2:43 EST 10/06/2004 2:43 EST Hilton Álvarez MD URINALYSIS ORDERABLES Jacquie l Result [facility] [address] [place] [address] * OSMOLALITY, URINE (10/05/2004 22:11 EST) Osmolality, Ur 229 MOS/KG MELONIETEA [facility] 10/05/2004 22:1 1 EST 10/05/2004 22:11 EST us Hilton Álvarez MD URINALYSIS ORDERABLES Jacquie l Result [facility] [address] [place] [address] * SODIUM, URINE RANDOM (10/05/2004 22:11 EST) Sodium, Ur 28.0 mEq/L [facility] 10/05/2004 22:1 1 EST 10/05/2004 22:11 EST Hilton Álvarez MD URINALYSIS ORDERABLES Jacquie l Result Performing Organization Address [facility] Co de Phone Number [facility] [address] [place] [address] * OSMOLALITY (10/05/2004 22:10 EST) Osmolality Cintia 297 MOS/KG SHERI [facility] 10/05/2004 22:1 0 EST 10/05/2004 22:10 EST Hilton Álvarez MD CHEMISTRY & BLOOD GAS ORDE RABLES Final Result [facility] [address] [place] [address] * ELECTROLYTES (10/05/2004 22:10 EST) Sodium 144 [...] HANNON Final Result [facility] [address] [place] [address] * CT HEAD WO CONTRAST (10/05/2004 20:26 [...] 2. No hydrocephalus or intraparenchymal hemorrhage identified. /[facility] Trice Scott MD IMG CT ORDERABLES Final Re sult * OSMOLALITY, URINE (10/05/2004 18:24 EST) Osmolality, Ur 754 MOS/KG [facility] 10/05/2004 18:2 4 EST 10/05/2004 18:29 EST Hilton Álvarez MD URINALYSIS ORDERABLES Jacquie nur Result [facility] [address] [place] [address] * SODIUM, URINE RANDOM (10/05/2004 18:24 EST) Sodium, Ur 216.0 mEq/L [facility] 10/05/2004 18:2 4 EST 10/05/2004 18:29 EST Hilton Álvarez MD URINALYSIS ORDERABLES Jacquie l Result Performing Organization Address [facility] de Phone Number [facility] [address] [place] [address] * OSMOLALITY (10/05/2004 18:06 EST) Osmolality Cintia 294 MOS/KG SHERI ALMEIDA [facility] 10/05/2004 18:0 6 EST 10/05/2004 18:06 EST Hilton Álvarez MD CHEMISTRY & BLOOD GAS [facility] Final Result Performing Organization Address [facility] de Phone Number [facility] [address] [place] [address] * ELECTROLYTES (10/05/2004 18:06 EST) Sodium 141 136 - 145 mEq/L [facility] Potassium 4.4 3.6 - 5.2 mEq/L [facility] Chloride 106 96 - 110 mEq/L [facility] CO2 26 24 - 32 mEq/L [facility] 10/05/2004 18:0 6 EST 10/05/2004 18:06 EST Hilton Álvarez MD CHEMISTRY & BLOOD GAS ORDE RABLES Final Result Performing Organization Address [facility] de Phone Number [facility] [address] [place] [address] * OSMOLALITY, URINE (10/05/2004 15:36 EST) Osmolality, Ur 406 MOS/KG [facility] 10/05/2004 15:3 6 EST 10/05/2004 15:36 EST Hilton Álvarez MD URINALYSIS ORDERABLES Jacquie l Result Performing Organization Address [facility] de Phone Number [facility] [address] [place] [address] * SODIUM, URINE RANDOM (10/05/2004 15:36 EST) Sodium, Ur 109.0 mEq/L [facility] 10/05/2004 15:3 6 EST 10/05/2004 15:36 EST Hiltno Álvarez MD URINALYSIS ORDERABLES Jacquie l Result Performing Organization Address [facility] de Phone Number [facility] [address] [place] [address] * OSMOLALITY (10/05/2004 14:19 EST) Pathologist [facility] Osmolality Cintia 296 MOS/KG [facility] 10/05/2004 14:1 9 EST 10/05/2004 14:19 EST Hilton Álvarez MD CHEMISTRY & BLOOD GAS ORDE RABLES Final Result Performing Organization Address [facility] de Phone Number [facility] [address] [place] [address] * ELECTROLYTES (10/05/2004 14:19 EST) Pathologist [facility] Sodium 141 136 - 145 mEq/L [facility] Potassium 4.3 3.6 - 5.2 mEq/L [facility] Chloride 108 96 - 110 mEq/L [facility] CO2 26 24 - 32 mEq/L [facility] 10/05/2004 14:1 9 EST 10/05/2004 14:19 EST Hilton Álvarez MD CHEMISTRY & BLOOD GAS ORDE RABLES Final Result Performing Organization Address [facility] de Phone Number [facility] [address] [place] [address] * CREATININE (10/05/2004 14:19 EST) Pathologist [facility] Creatinine 0.7 0.6 - 1.2 mg/dl [facility] 10/05/2004 14:1 9 EST 10/05/2004 14:19 EST Hilton Álvarez MD HISTORICAL LAB FOR SQ LOAD Final Result Performing Organization Address City/[facility]/ZIP Co de Phone Number [facility] [address] [place] [address] * (ABNORMAL) HEMAGRAM (10/05/2004 14:19 EST) WBC [...] ORDERABLE S Final Result Performing Organization Address [facility] Co de Phone Number [facility] [address] [place] [address] * BUN (10/05/2004 14:19 EST) BUN 16 8 - 21 mg/dl [facility] 10/05/2004 14:1 9 EST 10/05/2004 14:19 EST Hilton Álvarez MD CHEMISTRY & BLOOD GAS ORDE RABLES Final Result Performing Organization Address City/[facility]/ZIP Co de Phone Number [facility] [address] [place] [address] * (ABNORMAL) GLUCOSE, GLUCOMETER (10/05/2004 14:16 EST) Glucose, Fingerstick 123(H) 70 - 110 mg/dl [facility] Inventory Control Clerk ID [id number] Test Performed by Nursing Services AN[facility] GARCIA 10/05/2004 14:1 6 EST 10/06/2004 0:42 EST us Hilton Álvarez MD CHEMISTRY & BLOOD GAS HERMES HNANON Final Result [facility] [address] [place] [address] documented in this encounter Visit Diagnoses Not on filedocumented in this encounter
--- OUTSIDE RECORDS SUMMARY | 2024-08-06 01:10 | XMS_ITS | Encounter Summary ---
Author Organization [facility] Address [address] [place] [address] Care Team Providers Care Concrete Paving Supervisor Name Role Phone Yan Demarco MD Primary Care Provider [phone] Corin Skinner MD Primary Care Provider Akil Serrano MD Primary Care Provider [phone] Encounter Details Date Type Department Care Team (Late st Contact Info) Description 10/15/2004 Before PRISM Converted Visit (Maple) [facility] - Maple conversion [address] [place] [address] Hilton Malloy MD [address] [place] [phone] Social History Tobacco Use Types Packs/Day Years Used Date Smoking Tobacco: Never Assessed Sex and Gender Information Value Date Recorded Sex Assigned at Not on file Legal Sex Male 18:35 EST Gender Identity Not on file Sexual Orientation Not on file documented as of this encounter Procedure Notes * Ricki, Conv Manufacturing Advisor - 02/13/2011 1256 EDT DATE: 10/12/2004 SURGEON: HILTON MALLOY MD CUSTOM PROTECTION OFFICER: REYNA OLEA MD, ANCELMO FRIEDMAN MD, HOMAR [...] he finished, we placedthe patient in the [place] three-point heading maker fixation and then registered him with the [...] suture. Then thedura is stripped with a Murtaugh #3 and an air drill is used [...] used. The arachnoid is opened with a [place] blade and the sylvian fissure is split. [...] skin. The patient is removed from the Lucas headholder. The pupils appear 3 mm and [...] 10/15/2004 10:37:52 - chelle Voice ID - [id number] Document ID - [id number] cc: HOMAR DIAZ MD, REFERRING PHYSICIAN HILTON MALLOY MD, ATTENDING PHYSICIAN This document has been electronically signed by HILTON MALLOY MD on 10/16/2004 16:06:32. documented in this encounter Plan of Treatment Upcoming Encounters Date Type Department Care Team (Late st Contact Info) Description 10/01/2024 13:40 EDT Office Visit [facility] Endocrinology - [address] [address] Shonjalyn Wilder Erik, DO [address] [facility] [address] [place] [address] documented as of this encounter Visit Diagnoses Not on filedocumented in this encounter Care Teams Concrete Paving Supervisor Relationship Specialty Start Date End Date Yna Demarco MD [address] [place] [address] PCP - General 08/22/09 02/20/10 Corin Skinner MD [address] [place] [phone] PCP - General 10/24/08 08/21/09 Akil Serrano MD [address] [facility] [place] [address] PCP - General 02/21/10 04/16/11 documented as of this encounter
--- OUTSIDE RECORDS SUMMARY | 2024-08-06 01:10 | XMS_ITS | Encounter Summary ---
Author Organization [facility] Address [address] [place] [address] Care Team Providers Care Department Helper Name Role Phone Yan Demarco MD Primary Care Provider [phone] Corin Skinner MD Primary Care Provider Akil Serrano MD Primary Care Provider [phone] Encounter Details Date Type Department Care Team (Late st Contact Info) Description 10/08/2004 Before PRISM Converted Visit (Maple) [facility] - Maple conversion [address] [place] [address] Jose Armando Alejo MD [address] [place] [address] Social History Tobacco Use Types Packs/Day Years [...] JOSE ARMANDO ALEJO MD, ADE MALLOY MD FILLER AND TRIMMER: CONSTANTINO BERMUDEZ MD PREOPERATIVE DIAGNOSIS: Craniopharyngioma cyst. [...] 10/08/2004 14:14:21 - cs Voice ID - [id number] Document ID - [id number] cc: ADE DIAZ MD, REFERRING PHYSICIAN JOSE ARMANDO ALEJO MD, ATTENDING PHYSICIAN This document has been electronically signed by JOSE ARMANDO ALEJO MD on 10/11/2004 15:42:12. documented in this encounter Plan of Treatment Upcoming Encounters Date Type Department Care Team (Late st Contact Info) Description 10/01/2024 13:40 EDT Office Visit [facility] Endocrinology - [facility] [address] [place] [address] Wilder Zaidi, [address] [facility] [address] [place] [address] documented as of this encounter Visit Diagnoses Not on filedocumented in this encounter Care Teams Department Helper Relationship Specialty Start Date End Date Yan Demarco MD [address] [place] [address] PCP - General 08/22/09 02/20/10 Corin Skinner MD [address] [address] PCP - General 10/24/08 08/21/09 Akil Serrano MD [address] [facility],[address] [address] PCP - General 02/21/10 04/16/11 documented as of this encounter
--- OUTSIDE RECORDS SUMMARY | 2024-08-06 01:10 | XMS_ITS | Encounter Summary ---
Author Organization [facility] Address [address] [place] [address] Care Team Providers Care Analytics Consultant Name Role Phone Unavailable Primary Care Provider Unavailabl e Encounter Details Date Type Department Care Team (Late st Contact Info) Description 09/17/2004 11:07 EST - 09/17/2004 11:59 EST Hospital Encounter [facility] - Maple conversion [address] [place] [address] Jamie Mckenna MD [address] [facility], [facility] [address] [place] [phone] Discharge Disposition: Home or Self Care Social [...] Visit [facility] Endocrinology - [facility] [address] [place] [address] Wilder Zaidi DO [address] [facility] [address] [place] [phone] documented as of this encounter Procedures Procedure [...] macroadenoma, although these are much less likely. /[facility] Jamie Mckenna MD IMG [...]
--- OUTSIDE RECORDS SUMMARY | 2024-08-06 01:10 | XMS_ITS | Encounter Summary ---
Author Organization [facility] Address [address] [place] [address] Care Team Providers Care Uniform Maker Name Role Phone Yan Demarco MD Primary Care Provider [phone] Corin Skinner MD Primary Care Provider Akil Serrano MD Primary Care Provider [phone] Encounter Details Date Type Department Care Team (Late st Contact Info) Description 09/21/2004 Before PRISM Converted Visit (Maple) [facility] - Maple conversion [address] [place] [address] Ade Malloy MD [address] [place] [phone] Social History Tobacco Use Types Packs/Day Years Used Date Smoking Tobacco: Never Assessed Sex and Gender Information Value Date Recorded Sex Assigned at Not on file Legal Sex Male 18:35 EST Gender Identity Not on file Sexual Orientation Not on file documented as of this encounter Progress Notes * Ricki, Conv Ruling Machine Set Up Operator - 02/13/2011 1150 EDT INITIAL EVALUATION September 20, 2004 Kris Drew MD [address] [place] [address] [place] [address] Drew, I had the pleasure [...] discussion with the mother and the social insurance adviser about the risks of surgery including , paralysis,stroke, blindness, cerebral spinal fluid leak, pituitary and hypothalamic damage, bleeding requiring blood transfusion, need for retirement hormone replacement, seizures. They understand this and would like to proceed;knowing that the biggest threat here is that if it is left untreated it certainly will threaten hisgood eye. I will set him up for surgery on the of this month. I would like him to see our pediatric loom operator apprentice Dr. Edwards, and I have ordered a [...] MD on 09/24/2004 09:42:19. ADE MALLOY MD Felt Finisher [facility] Division of Neurological Surgery - ADE MALLOY MD - an Voice ID: [id number] Document ID: [id number] CC: KRIS MCKENNA MD documented in this encounter Plan of Treatment Upcoming Encounters Date Type Department Care Team (Late st Contact Info) Description 10/01/2024 13:40 EDT Office Visit [facility] Endocrinology - [facility] [address] [place] [address] Wilder Zaidi, [address] [facility] [address] [place] [address] documented as of this encounter Visit Diagnoses Not on filedocumented in this encounter Care Teams Uniform Maker Relationship Specialty Start Date End Date Yan Demarco MD [address] [place] [phone] PCP - General 08/22/09 02/20/10 Corin Skinner MD [address] [place] [phone] PCP - General 10/24/08 08/21/09 kAil Serrano MD [address] [place] [address],[facility] [address] [place] [address] PCP - General 02/21/10 04/16/11 documented as of this encounter
--- OUTSIDE RECORDS SUMMARY | 2024-08-06 01:10 | XMS_ITS | Encounter Summary ---
Author Organization [facility] Address [address] [place] [address] Care Team Providers Care Electron Gun Inspector Name Role Phone Yan Demarco MD Primary Care Provider [phone] Corin Skinner MD Primary Care Provider Akil Serrano MD Primary Care Provider [phone] Encounter Details Date Type Department Care Team (Late st Contact Info) Description 11/15/2004 Before PRISM Converted Visit (Maple) [facility] - Maple conversion [address] [place] [address] Kylie Larson MD [address] [place] [phone] Social History Tobacco Use Types Packs/Day Years [...] the opportunity to speak briefly with Dr. dEwards the day before yesterday. He is hoping [...] last couple of days. Nursing over at [facility] will review his nursing care needs to see if they can provide the appropriate level of care for him. We will continue to monitor him over the next couple of days to assess for appropriate transition to the Rehab Service on Friday. d - 11/15/2004 16:16:25 - KYLIE LARSON MD t - 11/15/2004 16:50:13 - Voice ID - [id number] Document ID - [id number] cc: ANCELMO DIAZ MD, REFERRING PHYSICIAN This document has been electronically signed by KYLIE LARSON MD on 11/16/2004 15:48:37. l3 documented in this encounter Plan of Treatment Upcoming Encounters Date Type Department Care Team (Late st Contact Info) Description 10/01/2024 13:40 EDT Office Visit [facility] Endocrinology - [facility] [address] [facility] [place] [address] Wilder Zaidi, DO [address] [facility] [address] [place] [address] documented as of this encounter Visit Diagnoses Not on filedocumented in this encounter Care Teams Electron Gun Inspector Relationship Specialty Start Date End Date Yan Demarco MD [address] [place] [address] PCP - General 08/22/09 02/20/10 Corin Skinner MD [address] [place] [phone] PCP - General 10/24/08 08/21/09 Akil Serrano MD [address] [place] [address] PCP - General 02/21/10 04/16/11 documented as of this encounter
--- OUTSIDE RECORDS SUMMARY | 2024-08-06 01:10 | XMS_ITS | Encounter Summary ---
Author Organization [facility] Address [address] [place] [address] Care Team Providers Care Music Copyist Name Role Phone Yan Demarco MD Primary Care Provider Corin Skinner MD Primary Care Provider Akil Serrano MD Primary Care Provider [phone] Encounter Details Date Type Department Care Team (Late st Contact Info) Description 11/13/2004 Before PRISM Converted Visit (Maple) [facility] - Maple conversion [address] [place] [address] Kylie Larson MD [address] [place] [phone] Social History Tobacco Use Types Packs/Day Years [...] scratch his face spontaneously. He did not children's tutor nursery specifically to command but seemed to automatically children's tutor nursery my hand when I gripped his. He [...] response when trying to open his mouth. technical services representative and social work continued to [...] 11/13/2004 17:06:53 - chelle Voice ID - [id number] Document ID - [id number] cc: KYLIE DIAZ MD, REFERRING PHYSICIAN This document has been electronically signed by KYLIE LARSON MD on 11/14/2004 13:52:29. documented in this encounter Plan of Treatment Upcoming Encounters Date Type Department Care Team (Late st Contact Info) Description 10/01/2024 13:40 EDT [facility] Visit [facility] - [facility] [address] [place] [address] Wilder Zaidi, DO [address] [facility] [address] [place] [address] documented as of this encounter Visit Diagnoses Not on filedocumented in this encounter Care Teams Music Copyist Relationship Specialty Start Date End Date Yan Demarco MD [address] [place] [address] PCP - General 08/22/09 02/20/10 Corin Skinner MD [address] [phone] PCP - General 10/24/08 08/21/09 Akil Serrano MD [address] [facility] [address] [place] [address] PCP - General 02/21/10 04/16/11 documented as of this encounter
--- OUTSIDE RECORDS SUMMARY | 2024-08-06 01:10 | XMS_ITS | Encounter Summary ---
Author Organization [facility] Address [address] [place] [address] Care Team Providers Care Overlock Collar Setter Name Role Phone Yan Demarco MD Primary Care Provider Corin Skinner MD Primary Care Provider Akil Serrano MD Primary Care Provider [phone] Encounter Details Date Type Department Care Team (Late st Contact Info) Description 10/15/2004 Before PRISM Converted Visit (Maple) [facility] - Maple conversion [address] [place] [address] Jose Armando Alejo MD [address] [place] [address] Social History Tobacco Use Types Packs/Day Years [...] Office Visit [facility] Endocrinology - [facility] [address] [place] [address] Wilder Zaidi, [address] [facility] [address] [place] [address] documented as of this encounter Visit Diagnoses Not on filedocumented in this encounter Care Teams Overlock Collar Setter Relationship Specialty Start Date End Date Yan Demarco MD [address] [place] [address] PCP - General 08/22/09 02/20/10 Corin Skinner MD [address] [place] [phone] PCP - General 10/24/08 08/21/09 Akil Serrano MD [address] [address] PCP - General 02/21/10 04/16/11 documented as of this encounter
--- OUTSIDE RECORDS SUMMARY | 2024-08-06 01:10 | XMS_ITS | Encounter Summary ---
Author Organization [facility] Address [address] [place] [address] Care Team Providers Care Manager Water Name Role Phone Yan Demarco MD Primary Care Provider Corin Skinner MD Primary Care Provider Akil Serrano MD Primary Care Provider [phone] Encounter Details Date Type Department Care Team (Late st Contact Info) Description 10/08/2004 Before PRISM Converted Visit (Maple) [facility] - Maple conversion [address] [place] [address] Hilton Malloy MD [address] [place] [phone] Social History Tobacco Use Types Packs/Day Years Used Date Smoking Tobacco: Never Assessed Sex and Gender Information Value Date Recorded Sex Assigned at Not on file Legal Sex Male 18:35 EST Gender Identity Not on file Sexual Orientation Not on file documented as of this encounter Procedure Notes * Ricki, Conv Director Of Event Marketing - 02/13/2011 1243 EDT DATE: 10/05/2004 SURGEON: HILTON MALLOY MD FIRE PROTECTION SPECIALIST: JOSE ARMANDO ALEJO MD; ROSEY GUALLPA MD; [...] and his head was placed in the Duarte three-point headholder fixator device. At that point, [...] cyst. This was opened sharply with a Darlington blade scalpel, and immediately, a large amount [...] 10/08/2004 07:58:16 - jenn Voice ID - [id number] Document ID - [id number] cc: JOSE ARMANDO GUALLPA MD RESIDENT CONSTANTINO BERMUDEZ MD RESIDENT TOO DIAZ MD, REFERRING PHYSICIAN HILTON MALLOY MD, ATTENDING PHYSICIAN This document has been electronically signed by HILTON MALLOY MD on 10/08/2004 10:50:11. documented in this encounter Plan of Treatment Upcoming Encounters Date Type Department Care Team (Late st Contact Info) Description 10/01/2024 13:40 EDT Office Visit [facility] Endocrinology - [facility] [address], [place] [id number] Wilder Zaidi, DO [address] [facility] [address] [place] [address] documented as of this encounter Visit Diagnoses Not on filedocumented in this encounter Care Teams Manager Water Relationship Specialty Start Date End Date Yan Demarco MD [address] [place] [id number] PCP - General 08/22/09 02/20/10 Corin Skinner MD [address] [address] PCP - General 10/24/08 08/21/09 Akil Serrano MD 74 [facility],[address] [id number] PCP - General 02/21/10 04/16/11 documented as of this encounter
--- OUTSIDE RECORDS SUMMARY | 2024-08-06 01:11 | XMS_ITS | Clinical Summary ---
Author Organization [facility] Address [facility] [place] [address] Care Team Providers Care Java Programmer Analyst Name Role Phone Jimbo More Primary Care [...] Description 07/28/2024 Transcribe Orders eDH Incoming Referrals [phone] Jimbo More PA Other injury of unspecified body region, initial encounter 07/20/2024 1:30 PM EST [place] [address] Eron Barriga MD Schwannoma 07/20/2024 Travel 06/16/2024 [place] [address] Lauren Ruby MD Appointment 2024 3:10 PM EST - 2024 4:30 [place] [address] RESOURCE, ANESTHESIA-RIPTON MRI WITH ANESTHESIA (WRVU *) 2024 2:56 PM [place] [address] Akin Mcneill MD 06/14/2024 9:50 AM EST Ancillary Procedure Radiology Library at [facility] KAREY Alarcon [address] 06/14/2024 12:57 AM EST - 06/21/2024 3:06 PM EST Hospital Encounter Neuro Special Care Unit Level 3 Wing C [place] [facility] [place] [address] Mariola Alfred MD Saunders, MD Lesli Deleon Elias E, MD Raicek, Jacqueline E, DO Amell, Fredrik B, MD Sleep disorder; Hyponatremia; Agitation Discharge Disposition: Fdc Facility 06/13/2024 Ancillary Procedure Radiology Library at [facility] [place] [address] [place] [address] Ren Vaz MD from Last 3 Months Social History Tobacco Use Types Packs/Day Years Used Date Smoking Tobacco: Never Smokeless Tobacco: Never Alcohol Use Standard Drinks/Week Comments No 0 (1 standard drink = 0.6 oz pur e alcohol) [facility] Utilities Answer Date Recorded In [...] any time in the past 12 m [facility], were you homeless or living in a fpc (including now)? No 2024 [facility] Inpatient Questions Answer Date Recorded Prevent Contact [...] series) 03/07/2024 Medical Devices Implanted Type Area Bottle Feeder Device Identifier Shelf Expiration Date Model / Serial / Lot Screw,Baljinder,Stap,3 .5x80mm ([id number]) (Autoreq) - [id number] Implanted:Qty: 1 on 09/04/2017 by Amy Lance MD at [facility] IMPLANTS Left: Pelvis DO NOT USE [employer] - [id number] / / Screw,Baljinder,Stap,3 .5x34mm ([id number]) ([employer]ore[employer]) - [id number] Implanted:Qty: 1 on 09/04/2017 by Amy Lance MD at [facility] IMPLANTS Left: Pelvis DO NOT USE [employer] - [id number] / / Screw,Baljinder,Stap,3 .5x36mm ([id number]) ([employer]) - [id number] Implanted:Qty: 1 on 09/04/2017 by Amy Lance MD at [facility] IMPLANTS Left: Pelvis DO NOT USE [employer] - [id number] / / Screw,Baljinder,Stap,3 .5x50mm ([id number]) - [id number] Implanted:Qty: 2 on 09/04/2017 by Amy Lance MD at [facility] IMPLANTS Left: Pelvis DO NOT USE [employer] - [id number] / / Screw,Baljinder,Stap,3 .5x55mm ([id number]) - [id number] Implanted:Qty: 3 on 09/04/2017 by Amy Lance MD at [facility] IMPLANTS Left: Pelvis DO NOT USE [employer] - [id number] / / Screw,Baljinder,Stap,3 .5x60mm ([id number]) - [id number] Implanted:Qty: 1 on 09/04/2017 by Amy Lance MD at [facility] IMPLANTS Left: Pelvis DO NOT USE [employer] - [id number] / / Screw,Baljinder,Stap,3 .5x65mm ([id number]) - [id number] Implanted:Qty: 2 on 09/04/2017 by Amy Lance MD at [facility] IMPLANTS Left: Pelvis DO NOT USE [employer] - [id number] / / Suprapectineal Plate (Qls Left) Implanted:Qty: 1 on 09/04/2017 by Amy Lance MD at [facility] Left: Pelvis 07/06/2022 [id number] / / [id number] 3.5mm Cortical Screw Self Tap 45mm Implanted:Qty: 1 on 09/04/2017 by Amy Lance MD at [facility] Left: Pelvis [id number] / / Explanted Type Area Bottle Feeder Device Identifier Shelf Expiration Date Model / Serial / Lot K-Wire [id number] Explanted:Qty: 1 on 09/04/2017 by Amy Lance MD at [facility] Left: Pelvis [id number] / / [id number] Procedures Procedure Name Priority Date/Time Associated Diagnosis [...] 2024 4:20 PM EST Unlisted Mri Procedure ([id number]) 2024 2:56 PM EST Please evaluate lesion [...] 06/14/2024 9:46 AM EST URINALYSIS BEAKER MICROSCOPIC ([facility]) SHEEBA 06/14/2024 8:06 AM EST URINALYSIS MICROSCOPIC [...] - 0.40 x10(3)/mc L 06/21/2024 1:09 AM [facility] [...] EST Martinez Reynolds MD HEMATOLOGY ORDERABLE S [facility] [place] [address] * Phosphorus (06/21/2024 12:50 AM EST) Only the most recent of9 resultswithin the time period is included. Pathologist [facility] Phosphorus 3.2 2.5 - 4.5 mg/dL 06/21/2024 1:30 AM EST [facility] Blood VENOUS BLOOD SPECIMEN / Unknown Venipuncture / Unknown 06/21/2024 12:50 AM EST 06/21/2024 12:56 AM EST Martinez Reynolds MD CHEMISTRY ORDERABLES Performing Organization Address [facility] de Phone Number [facility] [place] [address] * Magnesium (06/21/2024 12:50 AM EST) Only the most recent of9 resultswithin the time period is included. [facility] Magnesium 0.81 0.69 - 1.07 mMol/L 06/21/2024 1:30 AM [facility] Blood VENOUS BLOOD SPECIMEN / Unknown Venipuncture / Unknown 06/21/2024 12:50 AM EST 06/21/2024 12:56 AM EST Martinez Reynolds MD CHEMISTRY ORDERABLES Performing Organization Address [facility] Phone Number [facility] [place] [address] * (ABNORMAL) Hepatic Function Panel (06/21/2024 12:50 AM EST) Only the most recent of5 resultswithin the time period is included. Pathologist [facility] Albumin 4.0 3.2 - 5.2 g/dL 06/21/2024 1:30 AM EST [facility] Aspartate Aminotransferase 47(H) <=39 unit/L [...] AM EST Martinez Reynolds MD CHEMISTRY ORDERABLES [facility] [place] [address] * (ABNORMAL) Basic Metabolic Panel (06/21/2024 12:50 [...] - 10.5 mg/dL 06/21/2024 1:44 AM EST [facility] Est Glomerular Filtration Rate - Male 118 mL/min/1. 73 m?? 06/21/2024 1:44 AM EST [facility] Comment: This patient's estimated GFR [...] AM EST Martinez Reynolds MD CHEMISTRY ORDERABLES [facility] [place] [id number] * Scan Doc: Telemetry Strips (06/20/2024 9:23 AM EST) Only the most recent of4 resultswithin the time period is included. Narrative 06/20/2024 9:23 AM EST Ordered by an unspecified provider. Scanning Provider MEDIA MGR SCAN EXT O RDR/RSLT * (ABNORMAL) Urinalysis with reflex Culture (06/19/2024 3:22 AM EST) Glucose, Urine Dipstick Negative Negative 06/19/2024 3:37 AM EST [facility] Protein, Urine Dipstick Negative Negative 06/19/2024 3:37 AM EST [facility] Bilirubin, Urine Dipstick Negative Negative 06/19/2024 3:37 AM EST [facility] Comment:Clinical correlation required for positive [...] [facility] Specific [place] Urine Automated 1.021 1.005 - 1.030 06/19/2024 3:37 AM [facility] Appearance, Urine Dipstick Cloudy(A) Clear 06/19/2024 3:37 AM [facility] Color, Urine Dipstick Yellow Yellow, Dark Yellow 06/19/2024 3:37 AM [facility] CULTURE ADDED? 06/19/2024 3:37 AM [facility] Urine URINE SPECIMEN OBTAINED VIA STRAIGHT CATHETER / Unknown Non Blood Collection / Unknown 06/19/2024 3:22 AM EST 06/19/2024 3:31 AM EST Pamela Johnson [place] [address] * XR Chest One View (06/18/2024 7:55 PM EST) Only the most recent of2 resultswithin the time period is included. WORKSTATION ID [id number] RAD Anatomical Region Laterality Modality Chest N/A [...] who have questions please contact the health daycare provider that requested your imaging first. ? Electronically signed by: Tobias Sotomayor MD, [facility] ([phone]), at 06/18/2024 8:09 PM Narrative 06/18/2024 8:09 [...] patients who have questions please contactthe health daycare provider that requested your imaging first. Pamela Johnson DO IMG DX ORDERABLES * Blood culture (06/18/2024 7:00 PM EST) Only the most recent of2 resultswithin the time period is included. Blood Culture No growth at 120 hours 06/23/2024 8:00 PM EST [facility] Blood VENOUS BLOOD SPECIMEN / Unknown Venipuncture / Unknown 06/18/2024 7:00 PM EST 06/18/2024 7:05 PM EST Pamela Johnson DO MICROBIOLOGY - BL OOD ORDERABLES Performing Organization Address City/[facility]/ZIP Co de Phone Number [facility] [place] [address] * POC, GLUCOSE (06/18/2024 6:55 PM EST) Only the most recent of2 resultswithin the time period is included. Glucometer, POC 100 65 - 199 mg/dL 06/18/2024 6:56 PM EST [facility] Comment:Supplemental ranges: <140 mg/dL before meals <180 mg/dL all other times of the day. Blood CAPILLARY BLOOD / Unknown 06/18/2024 6:55 PM EST 06/18/2024 6:56 PM EST Pamela Johnson DO POINT OF CARE TABATHA T ORDERABLES Performing Organization Address City/[facility]/ZIP Co de Phone Number [facility] [place] [address] * EKG 12 Lead (06/18/2024 1:41 PM EST) Only the most recent of3 resultswithin the time period is included. Ventricular rate 47 BPM MUSE SYSTEM Atrial Rate 47 BPM MUSE SYSTEM P-R Interval 186 ms MUSE SYSTEM QRS Duration 114 ms MUSE SYSTEM Q-T Interval 558 ms MUSE SYSTEM QTC Calculated (Bezet) 493 ms MUSE SYSTEM Calculated P [place] 11 degrees MUSE SYSTEM Calculated R [place] 45 degrees MUSE SYSTEM Calculated T [place] 45 degrees MUSE SYSTEM INTERPRETATION Sinus bradycardia [...] Reynolds MD ECG ORDERABLES Performing Organization Address City/[facility]/ZIP Co de Phone Number MUSE SYSTEM * Sodium (06/18/2024 12:22 PM EST) Only the most recent of17 resultswithin the time period is included. Sodium 135 135 - 145 mMol/L 06/18/2024 1:01 PM EST [facility] Blood VENOUS BLOOD SPECIMEN / Unknown Venipuncture / Unknown 06/18/2024 12:22 PM EST 06/18/2024 12:35 PM EST Pamela Johnson DO CHEMISTRY ORDERAB LES [facility] [place] [address] * CT Head wo Contrast (Generic) (06/18/2024 11:18 AM EST) WORKSTATION ID [id number] RAD Anatomical Region Laterality Modality Head Computed [...] who have questions please contact the health daycare provider that requested your imaging first. ? Electronically signed by: Jimbo Casillas MD, [facility] ([phone]), at 06/18/2024 11:37 AM Narrative 06/18/2024 11:37 [...] patients who have questions please contactthe health daycare provider that requested your imaging first. Electronically signed by: Jimbo Casillas MD, [facility]([phone]), at 06/18/2024 11:37 AM Pamela Johnson DO IMG CT ORDERABLES * MRI Brain wwo Contrast (Generic) (2024 4:20 PM EST) WORKSTATION ID [id number] RAD Anatomical Region Laterality Modality Head Magnetic [...] who have questions please contact the health daycare provider that requested your imaging first. ? Electronically signed by: Raudel Heredia MD, [facility] ([phone]), at 2024 4:46 PM Narrative 2024 4:46 [...] clip with its blades near the right MASSAGE COORDINATOR. Procedure Note Raudel Heredia MD - 2024 [...] aneurysm clipwith its blades near the right MASSAGE COORDINATOR. IMPRESSION Homogeneously enhancing 3.5 cm mass along [...] patients who have questions please contactthe health daycare provider that requested your imaging first. Marline Calderon [...] Head (06/14/2024 9:46 AM EST) WORKSTATION ID [id number] RAD Anatomical Region Laterality Modality Head SO [...] who have questions please contact the health daycare provider that requested your imaging first. ? Electronically signed by: Galen Balderas [facility] ([phone]), at 06/14/2024 10:41 AM Narrative 06/14/2024 10:41 AM EST EXAMINATION: REQUEST FOR 2ND READ CT HEAD CLINICAL HISTORY: New seizure with known mass, ?enlargening. Presenting with seizure; Sending Institution [facility]; Date of exam [id number]; I [...] known mass, ?enlargening. Presentingwith seizure; Sending Institution [facility]; Date of exam [id number]; I [...] patients who have questions please contactthe health daycare provider that requested your imaging first. Lexie Osullivan APRN IMG OUTSIDE INTERP RETATION ORDERABLES * (ABNORMAL) Urinalysis Microscopic (06/14/2024 8:06 AM EST) Bacteria, Urine None None /HPF 12:26 PM EST [facility] Amorphous Crystals, Urine Many(A) None /HPF 06/14/2024 12:26 PM EST [facility] RBC, Urine 1 0 - 3 /HPF 06/14/2024 12:26 PM EST [facility] WBC, Urine 1 0 - 3 /HPF 06/14/2024 12:26 PM EST [facility] Squamous Epithelial Cells, Urine 0 0 - 5 /HPF 06/14/2024 12:26 PM EST [facility] Hyaline Casts, Urine 0 0 - 2 /LPF 06/14/2024 12:26 PM EST [facility] Urine URINE SPECIMEN / Unknown Non Blood Collection / Unknown 06/14/2024 8:06 AM EST 06/14/2024 8:52 AM EST Marline Calderon NOZZLE AND SLEEVE WORKER URINE ORDERABLES [facility] [place] [address] * Urinalysis Microscopic Exam (06/14/2024 8:06 AM EST) Urine URINE SPECIMEN / Unknown Non Blood Collection / Unknown 06/14/2024 8:06 AM EST 06/14/2024 8:52 AM EST Marline Calderon APRN URINE ORDERABLES [facility] [place] [address] * Electrolytes, urine, random (06/14/2024 8:06 AM EST) Sodium, Urine 76 mMol/L 06/14/2024 10:44 AM EST [facility] Potassium, Urine 41 mMol/L 06/14/2024 10:44 AM EST [facility] Chloride, Urine 52 mMol/L 06/14/2024 10:44 AM EST [facility] Urine URINE SPECIMEN / Unknown Non Blood Collection / Unknown 06/14/2024 8:06 AM EST 06/14/2024 8:52 AM EST Mariola Alfred MD URINE ORDERABLES Performing Organization Address City/[facility]/ZIP Co de Phone Number [facility] [place] [address] * Osmolality, urine, random (06/14/2024 8:06 AM EST) Osmolality, Urine 496 50 - 1,200 mOsm/kg 06/14/2024 10:55 AM EST [facility] Urine URINE SPECIMEN / Unknown Non Blood Collection / Unknown 06/14/2024 8:06 AM EST 06/14/2024 8:52 AM EST Mariola Alfred MD URINE ORDERABLES [facility] [place] [address] * (ABNORMAL) Urinalysis Dipstick (06/14/2024 8:06 AM [...] [facility] Specific [place] Urine Automated 1.016 1.005 - 1.030 06/14/2024 [...] AM EST Marline Calderon APRN URINE ORDERABLES [facility] [place] [address] * (ABNORMAL) Blood Gas, Venous POC (06/14/2024 1:35 AM [facility]) pH, Venous 7.39 7.32 - 7.42 [...] - 199 mg/dL 06/14/2024 1:36 AM EST [facility] Comment:Glucose Concentratio n >=200 mg/dL plus symptoms is consistent with Diabetes Mellitus. Lactate, Venous 2.3(H) 0.5 - 2.2 mmol/L 06/14/2024 1:36 AM EST [facility] Ionized Calcium, Venous 1.10(L) 1.15 - 1.33 mmol/L 06/14/2024 1:36 AM EST [facility] Blood VENOUS BLOOD SPECIMEN / Unknown 06/14/2024 1:35 AM EST 06/14/2024 1:36 AM EST Mariola Alfred MD POINT OF CARE TEST O RDERABLES Performing Organization Address City/[facility]/ZIP Co de Phone Number [facility] [place] [address] * Scan, Peripheral Blood (06/14/2024 1:03 AM EST) Pathologist [facility] RBC Morphology Abnormal 06/14/2024 2:00 AM [facility] Platelet Estimate Normal Normal [...] EST Mariola Alfred MD HEMATOLOGY ORDERABLE S [facility] [place] [address] * Zonisamide level (06/14/2024 1:03 AM EST) Pathologist [facility] Zonisamide Lvl November 17 10 - 40 mcg/mL 06/16/2024 9:22 PM EST [facility] [place] Comment: ADDITIONAL INFORMATION This test was developed and its performance characteristics determined by [facility] in a manner consistent with CLIA requirements. This test has not been cleared or approved by the U.S. Food and Drug Administration. Blood VENOUS BLOOD SPECIMEN / Unknown Venipuncture / Unknown 06/14/2024 1:03 AM EST 06/14/2024 1:08 AM EST Narrative [facility]F [facility] [place] - 06/16/2024 9:22 PM EST Test Performed by: [facility] [place] [address] Manpower Development Manager: Xavier Velásquez Ph.D.; CLIA# [id number] Mariola Alfred MD LAB SEND OUT ORDERAB LES Performing Organization Address City/[facility]/ZIP Co de Phone Number REF LAB [address] * T3 Total (06/14/2024 1:03 AM EST) T3 Total 87 80 - 200 ng/dL 06/14/2024 1:46 AM EST [facility] Blood VENOUS BLOOD SPECIMEN / Unknown Venipuncture / Unknown 06/14/2024 1:03 AM EST 06/14/2024 1:08 AM EST Mariola Alfred MD CHEMISTRY ORDERABLES Performing Organization Address City/[facility]/ZIP Co de Phone Number [facility] [place] [address] * T4, free (06/14/2024 1:03 AM EST) Free T4 1.37 0.93 - 1.70 ng/dL 06/14/2024 1:46 AM EST [facility] Blood VENOUS BLOOD SPECIMEN / Unknown Venipuncture / Unknown 06/14/2024 1:03 AM EST 06/14/2024 1:08 AM EST Mariola Alfred MD CHEMISTRY ORDERABLES [facility] [place] [address] * (ABNORMAL) Osmolality (06/14/2024 1:03 AM EST) Osmolality 259(L) 275 - 295 mOsm/kg 06/14/2024 1:40 AM EST [facility] Blood VENOUS BLOOD SPECIMEN / Unknown Venipuncture / Unknown 06/14/2024 1:03 AM EST 06/14/2024 1:08 AM EST Mariola Alfred MD CHEMISTRY ORDERABLES Performing Organization Address City/[facility]/ZIP Co de Phone Number [facility] [place] [address] * Film Library- Storage Only CT Head (06/13/2024 12:00 AM EST) Narrative [facility] - 06/14/2024 12:43 AM EST This exam is auto-finalizing. It's purpose is for storage only. Ren Vaz MD IMG FILM LIBRARY ORD ERABLES Performing Organization Address City/[facility] Co de Phone Number [place], [place] from Last 3 Months Advance Directives Documents on File Type Date Recorded Patient Data Processing Control Clerk Expl anation Guardianship document 06/22/2024 1:11 PM [...] Name (and relationship if needed): sister Jayme [facility] Teams Java Programmer Analyst Relationship Specialty Start Date End Date Jimbo More PA [address] [place] [address] PCP - General Internal Medicine 06/18/24
--- OUTSIDE RECORDS SUMMARY | 2024-08-06 01:11 | XMS_ITS | Encounter Summary ---
Author Organization [facility] Address [facility] [place] [address] Care Team Providers Care Precision Devices Inspector/Tester Name Role Phone Jimbo More Primary Care Provider + Encounter Details Date Type Department Care Team (Latest Contact Info) Description 07/20/2024 Travel Social History Tobacco Use Types Packs/Day Years Used Date Smoking Tobacco: Never Smokeless Tobacco: Never Alcohol Use Standard Drinks/Week Comments No 0 (1 standard drink = 0.6 oz pur e alcohol) [facility] Utilities Answer Date Recorded In the [...] [facility] the [facility] or [facility] in a [facility] (including now)? No 2024 IPV Inpatient Questions [...] filedocumented in this encounter Care Teams Precision Devices Inspector/Tester Relationship Specialty Start Date End Date Jimbo [place] [address] PCP - General Internal Medicine 06/18/24 documented as of this encounter
--- OUTSIDE RECORDS SUMMARY | 2024-08-06 01:11 | XMS_ITS | Encounter Summary ---
Author Organization [facility] [place] [address] Care Team Providers Care Practical Nursing Faculty Name Role Phone Jimbo More Primary Care Provider + Reason for Visit * Auth/Cert (Routine) Specialty Diagnoses / Procedures Referred By Duyen bui Referred To Contact Diagnoses Hyponatremia hyponatremia Procedures ER IPI Mariola Alfred MD [facility] [place] [address] [facility] Referral ID Status Reason Start Date Expiration Date Visits Re quested Visits Authorized [id number] 1 1 Encounter Details Date Type Department Care Team (Late st Contact Info) Description 06/14/2024 12:57 AM EST - 06/21/2024 3:06 PM EST Hospital Encounter Neuro Special Care Unit Level 3 [place] [address] Mariola Alfred MD [facility] [place] [address] [place] [address] [place] [address] [place] [address] [place] [address] Sleep disorder; Hyponatremia; Agitation Discharge Disposition: Senior Living Facility Social History Tobacco Use Types Packs/Day Years Used Date Smoking Tobacco: Never Smokeless Tobacco: Never Alcohol Use Standard Drinks/Week Comments No 0 (1 standard drink = 0.6 oz pur e alcohol) [facility] Utilities Answer Date Recorded In the [...] in the past 12 m [facility], were you homeless or living in [...] has been significant for: Hyponatremia: Presented to [facility] following witnessed tonic-clonic seizure at senior care, found to have sodium of 122. On [...] in September 2023. On second read of [facility] scan described as hypoattenuating, likely cystic [...] witnessed at fdc, 30 sec seziure at [facility] ED (2mg ativangiven). None since arrival [...] 97 % No results for input(s): PHART, YJZ8IXN, PO2ART, LVE0AVE in the last 168 hours. I/O: Date 06/21/24 0700 - 06/22/24 0659 Shift 3076-5109 8486-5527 8482-6134 24 Hour Total INTAKE P.O. 354 354 [...] Procedure Component Value Units Date/Time Blood culture [[id number]] (Abnormal) Collected: 06/18/241899 Lab Status: Preliminary result [...] a previously preliminary verified report. Blood culture [[id number]] Collected: 06/18/241899 Lab Status: Preliminary result Specimen: [...] Center 07/20/2024 1:30 PM Eron Barriga MD [facility] [id number] [facility] * Attachments The following attachments cannot be sent through Care Everywhere. * Hyponatremia (Chinese) documented in this encounter Medications at Time [...] spent >30 minutes (Day of Discharge Code 00338) involved in the final examination of the [...] appropriate/able. Sunitha Sanderson PT, DPT, NCS Pager: [phone] Physical Therapy Inpatient Rehabilitation Department * Martinez [...] 168 hours. No results for input(s): PHART, ACD8WCN, PO2ART, DAQ3OLM in the last 168 hours. Microbiology: None [...] 168 hours. No results for input(s): PHART, XRT3UYO, PO2ART, HUJ7OON in the last 168 hours. Microbiology: None [...] Back to fdc when Martinez Reynolds MD [facility] medicine Service: [id number] 06/19/2024 * Shola Morris MD - 06/19/2024 10:15 AM EST Images from the original note were not included. Endocrinology Follow up Note Name: Abram Burgos Date: 06/19/24 Room: [address] [place] [address] Reason for Consult: panhypopituitarism HPI Abram Burgos [...] this is possible given there is often child care leader turnover and not everyone is up to [...] - will need follow up with his Strawhat Sizer, Dr. Zaidi or Dr. Day Littlejohn at discharge Endocrinology will sign off at this time but are available for any questions or concerns during hisremaining hospital stay. Thank you for allowing us to participate in the care of this patient. Discussed with Dr. Morris. Crista Gill MD. PGY4 [facility] Endocrinology I have seen the patient and [...] take POat this time Shola Morris MD [employer] In[employer]ornnp Endocrinology Section [facility] * Doris Judd MD - 06/19/2024 6:58 [...] seems that this struggle is also a electric mule driver of agitation, and one of the [...] - start 600mg BID, titrate to MDD 8978-5915 in divided doses - monitor for increased respiratory secretions -discontinue depakote Patient on IEA Status? IEA: NO, patient is not an on IEA. Awaiting voluntary psychiatric placement but safety concerns exist if patient decides to leave and will require urgent psychiatric assessmentprior to discharge or leaving AMA. Recommendations were communicated to primary engineering team supervisor Dr. Johnson. H Samson Judd [...] Minimal/Low [] Low [] Minimal/Low [] Low 41453 [] Moderate [] Moderate [] Moderate [] Moderate 58438 [] High [] High [] High [] High 76729 Final Coding Determination: Moderate * Pamela Johnson [...] 168 hours. No results for input(s): PHART, UWK9AQP, PO2ART, SDL1NUQ in the last 168 hours. Microbiology: None [...] to fdc when Pamela Emerald DO Alex [facility] medicine Service: 7050 06/18/2024 * Jaja Chin MD - 06/18/2024 [...] fdc when [facility] [address] [facility] [address] [place] [address] '[address]81 Spoke with Jennifer Woods RN. Updated not anticipated discharge until next week. Will submit referralto [facility] to update facility with clinicals. [facility] provides transport. * Sunitha Sanderson PT - 06/18/2024 10:49 AM EST Physical Therapy Contact Note 06/18/24 3135 Evaluation & Treatment Document Type contact Total Minutes, Physical Therapy 0 Comment, Session Not Performed Checked in with nursing, pt awaiting stat HCT for somnolence. PT will defer and follow up as appropriate/able. Sunitha Sanderson PT, DPT, NCS Pager: [phone] Physical Therapy Inpatient Rehabilitation Department * Zoë [...] denies needing anything at this time. His RADIATION PHYSICIST at bedside shares that he has been [...] seems that this struggle is also a electric mule driver of agitation, and one of the [...] leaving AMA. Recommendations were communicated to primary engineering team supervisor Dr. Johnson. Jaja Chin MD [...] Minimal/Low [] Low [] Minimal/Low [] Low 01361 [] Moderate [] Moderate [] Moderate [] Moderate 49995 [] High [] High [] High [] High 08634 Final Coding Determination: Moderate Associated attestation - [...] Brittny Hanna MD Department of Psychiatry Pager #[phone] * Pamela Johnson, - 06/17/2024 5:30 PM [...] 168 hours. No results for input(s): PHART, UWS5WFK, PO2ART, AJV2BIU in the last 168 hours. Microbiology: None [...] 3L daily. Spoke to Madeleine from the [facility] where he lives. She notes his [...] fdc when MR Pamela Corbin Ana MaríadanielaDO [facility] medicine Service: 2900 06/17/2024 * [...] Surgical History: Procedure Laterality Date PRO OPEN E D TECH FIX ACETABULAR FX Left 09/04/2017 @OPEN TREATMENT, ACETABULAR FX (WRVU 25.41) performed by Amy Lance MD at [facility] MA[facility] OR Social History: Patient lives [...] from EOB: min assist x 2 with FINANCIAL FOUNDATIONS REPRESENTATIVE Pt able to side step to L side ~4-5 steps with min assist x 2 using FINANCIAL FOUNDATIONS REPRESENTATIVE, cues provided for step initiation and sequencing Stand to sit x 2: min assist x 2 with FINANCIAL FOUNDATIONS REPRESENTATIVE Sit to supine: mod assist x 2 [...] minimal side steps to L side with FINANCIAL FOUNDATIONS REPRESENTATIVE. Unsure of pt's most recent functional status [...] Minutes, Occupational Therapy: 28 (09:42-10:10 SCx2) Pager: [phone] Roya Kingsley OTR/L Occupational Therapy Rehabilitation Department [...] EEG CONTINUOUS MONITORING INPATIENT 2024 PRO OPEN E D TECH FIX ACETABULAR FX Left 09/04/2017 @OPEN TREATMENT, ACETABULAR FX (WRVU 25.41) performed by Amy Lance MD at [facility] Social History: Home setup: Pt resides in an accessible fdc in [facility] Baseline Mobility/Prior level of function: Had [...] outlined inthis evaluation. Time IN / OUT: 5001-1517 Total Minutes, Physical Therapy: 30 (eval). Ludivina Stover, PT DPT 06/16/2024 Pager: [phone] Physical Therapy Inpatient Rehabilitation Department * Christopher [...] seizures in the setting of hyponatremia and RETAIL SUPPORT MANAGER structural abnormalities. This most likely provoked [...] minimumof two midnights or is on the [facility] inpatient only procedure list (status C) due to: monitoring of fluid status given an inability to regulate fluid balance and the need for administration or restriction of fluids and breakthrough seizures * Lauren Ruby MD - 06/16/2024 6:54 AM EST [facility] NEUROSURGERY PROGRESS NOTE ID: Abram Burgos 34 [...] admit with jazmín of 122 while at [facility] thus far corrected to 131). Therefore no acute neurosurgical intervention warranted. We will follow up with the patient and hisfamily/legal guardian outpatient to discuss management options. We are signing off for now, rest ofcare per primary, but remain available at pager [phone] should further questions/concerns arise. Plan: -No acute neurosurgical intervention warranted -We are signing off now, but will follow up outpatient with patient/family to discuss management options -Rest of care per primary including frequency of neuro checks For questions please call NSGY pager [phone] Lauren Ruby MD 06/16/2024 7:22 AM Clinical [...] with him tomorrow. Maxine Silverio, DAVONTE Pager [phone] * Christopher Stanley MD - 2024 8:13 [...] seizures in the setting of hyponatremia and RETAIL SUPPORT MANAGER structural abnormalities. This most likely provoked [...] O2 Device RA Maxine Silverio, PT Pager [phone] * Wilder Davis - 06/14/2024 11:19 AM [...] ~2 minute tonic clonic seizure. Presented to [facility] where he was found to be hyponatremic. Given hypertonic saline and ativan and transferred to [facility]. Physical Exam Last value Range last 24 [...] seizures in the setting of hyponatremia and RETAIL SUPPORT MANAGER structural abnormalities. His hyponatremia is likely [...] minimumof two midnights or is on the [facility] inpatient only procedure list (status C) due to: monitoring of fluid status given an inability to regulate fluid balance and the need for administration or restriction of fluids and seizur * Kvng Marline L, INSURANCE COLLECTOR - 06/14/2024 6:42 AM EST Critical Care [...] fdc with subsequent 30 second seizure at [facility] ED which was treated with 2mg ativan. He was found to be hypon atremic to 121 (from apparent baseline in 140s). At [facility] he received 150cc 3% NaCl and 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 He wastransferred to [facility] where sodium of 122 was treated with 50cc 3%NaCl and Neutra-Phos. No evidence of seizure since arrival. Neurology, neurosurgery, and endocrine teams were consulted. Hospital/ICU course has been significant for: #Hyponatremia #Seizure Activity (prior to arrival at [facility]) #possible enlarging lesion in R middle cranial fossa 24-hour events: -Transferred to [facility] -Na treated with 3% (once at OSH, [...] Line): -- No results for input(s): PHART, WOT8AEC, PO2ART, NVC0KHY in the last 168 hours. Intake/Output Summary [...] Lizeth Calderon APRN June 14, 2024 Pager #[phone] Critical Care Green Team documented in this [...] from [facility] from a fdc ([facility]) for a seizure. He had been in his usual state of health, though notably he did have COVID within the past month. He reported that he had not been missing any of his medications, however due to some recent behavioral troubles and problems with sleeping, some of his medications have been altered recently. Hospital course notable for: Hyponatremia: Presented to [facility] following witnessed tonic-clonic seizure at senior care, found to have sodium of 122. On [...] in September 2023. On second read of [facility] scan described as hypoattenuating, likely cystic [...] witnessed at fdc, 30 sec seziure at [facility] ED (2mg ativangiven). None since arrival [...] EEG CONTINUOUS MONITORING INPATIENT 2024 PRO OPEN E D TECH FIX ACETABULAR FX Left 09/04/2017 @OPEN TREATMENT, ACETABULAR FX (WRVU 25.41) performed by Amy Lance MD at [facility] OR Social History: Social History [...] file Social History Narrative Lives at the [facility], moved in 11/07/2014. Social Determinants of Health [...] 06/14/2024 4:02 AM) Result Value WORKSTATION ID [id number] Narrative EXAMINATION: XR CHEST ONE VIEW CLINICAL [...] have questions please contact the health care program director that requested your imaging first. Electronically signed by: Beverley Valencia MD, [facility] ([phone]), at 06/14/2024 4:32 AM Request For 2nd Read CT Head (Exam End: 06/14/2024 9:46 AM) Result Value WORKSTATION ID [id number] Narrative EXAMINATION: REQUEST FOR 2ND READ CT HEAD CLINICAL HISTORY: New seizure with known mass, ?enlargening. Presenting with seizure; Sending Institution [facility]; Date of exam [id number]; I believe a reinterpretation of this exam may alter care of Patient. Yes TECHNIQUE: Reinterpretation of noncontrast CT head performed at [facility] 06/13/2024 at 2143 hours COMPARISON: Noncontrast [...] have questions please contact the health care program director that requested your imaging first. Electronically signed by: Galen Balderas [facility] ([phone]), at 06/14/2024 10:41 AM MRI Brain wwo Contrast (Generic) (Exam End: 2024 4:20 PM) Result Value WORKSTATION ID [id number] Narrative EXAMINATION: MRI BRAIN WWO CONTRAST (GENERIC) [...] clip with its blades near the right MACHINE SLAT BASKET MAKER. Impression Homogeneously enhancing 3.5 cm mass along [...] have questions please contact the health care program director that requested your imaging first. Electronically signed by: Raudel Heredia MD, [facility] ([phone]), at 2024 4:46 PM ASSESSMENT and PLAN: [...] Tim Yuen MD Internal Medicine PGY-2 Pager: [phone] 06/16/24 Associated attestation - Channing Ballesteros MD [...] with seizures. HPI: Per report presented to [facility] from a fdc ([facility]) for seizure. He has been in [...] encephalomalacia Interventions that the pt received at [facility] included 150cc 3% NaCl, 100mg of hydrocortisone and a dose (unknown amount) of desmopressin. [facility] was contacted for transfer. Neuro critical care [...] Surgical History: Procedure Laterality Date PRO OPEN E D TECH FIX ACETABULAR FX Left 09/04/2017 @OPEN TREATMENT, ACETABULAR FX (WRVU 25.41) performed by Amy Lance MD at [facility] OR No family history on [...] 127 from the time of arrival to [facility] Should attempt 6mMol/L increase in Na [...] NAKIA Blair June 14, 2024 Critical Care [place] Team (pager [phone]) Dr. Alfred is the attending of record for this admission documented in this encounter Procedure Notes * Joey Moura MD - 06/18/2024 1:58 PM EST [facility] Department of Neurology Inpatient Routine EEG Report [...] digitized electroencephalogram was performed in the [facility] Clinical Neurophysiology Laboratory. The 10/20 international system of electrode placement was used and bipolar and referential electrode montages were recorded. In addition to EEG the patient was monitored for EKGand lateral/vertical eye movements. Video was recorded during the session. BRIQUETTER OPERATOR'S REPORT: Performed by: Ingrid Shi Patient was [...] agree with the report. Rosa Quezada MD [facility] Neurology * Camron Gee MD - 2024 5:19 PM ESTProcedure(s): EEG CONTINUOUS MONITORING INPATIENT [facility] Department of Neurology Inpatient Continuous Video EEG Tail Report Name of the Patient: Abram Burgos Date of : 1990 [facility] Date of Service: 2024 Referring [...] EKG. Video was recorded during the session. BRIQUETTER OPERATOR'S REPORT: Performed by: At the onset of [...] seen during this epoch. Rashard Navarrete MD EVP BUSINESS DEVELOPMENT Fellow, PGY-5 2024 EPILEPSY ATTENDING ADDENDUM - I reviewed the EEG with the EVP BUSINESS DEVELOPMENT/Epilepsy fellow, and I agree with the interpretation as documented. Camron Gee MD, PhD Professor of Neurology [facility] Clinical Neurophysiology Laboratory [facility] Rashard Castrejon MD - 06/14/2024 3:33 PM [...] Castrejon MD - 06/14/2024 3:03 PM EST [facility] Department of Neurology Inpatient Continuous Video EEG Report Name of the Patient: Abram Burgos Date of : 1990 [facility] Date of Service: 06/14/2024 Referring [...] EKG. Video was recorded during the session. BRIQUETTER OPERATOR'S REPORT: Performed by: At the onset of [...] seen during this epoch. Rashard Navarrete MD EVP BUSINESS DEVELOPMENT Fellow, PGY-5 06/14/2024 Associated attestation - Camron Gee MD - 2024 1:03 PM EST EPILEPSY ATTENDING ADDENDUM - I reviewed the EEG with the EVP BUSINESS DEVELOPMENT/Epilepsy fellow, and I agree with the interpretation as documented. Given the lack of evidence for underlying epileptic seizures from this recording of ~24 hours, we'd recommend considering discontinuing the CEEG study. We are available to discuss this matter with the Neurology consultation and inpatient bravo team. Camron Gee MD, PhD Professor of Neurology [facility] Epilepsy [place] Clinical Neurophysiology Laboratory [facility] documented in this encounter Miscellaneous Notes * Plan of Care - Bell Amezcua RN - 06/21/2024 3:04 PM EST Abram Burgos discharged to halfway by care facility's vehicle with staff from [...] Patient is medically ready for discharge to [address] [place] [address] '[phone] . Garbage Collector Driver: Kemi Noriega at [facility] will be picking him up. I also spoke with Bettina Burgoshis Guardian to give her updates. Needs for Transition of Care: Plan for discharge is: Senior Living Facility / Swing Outpatient Agency/Support Group Needs: senior care Agency Referrals & Follow-up Care: Transportation: Garbage Collector Driver: Kemi Hari at [facility] will be picking him up. I also [...] plan was formulated with input from patient, Garbage Collector Driver: Kemi Noriega at [facility] will be picking him up. I also spoke with Bettina Burgos his Guardian to give her updates and team Dr. Reynolds. All are in agreement with plan. Sudarshan Marie REAL ESTATE TEACHER [facility] * Plan of Care - Erik [...] Patient has previously been seen at [facility] in 2014. His deficits at that time included left hemiparesis, cortical blindness, urine incontinence, dysarthria and gait disorder. 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 According to [facility] documentation, he had a spell at his fdc that was concerning for seizure one month prior to his visit. BG at the time was in the 40s and he was started on Keppra in addition to Zonegran. [facility] neurologist planned for discontinuation of Keppra at [...] (WRVU *) performed by JERSEY, ANESTHESIA-GEORGIE at [facility] GEORGIE PRO OPEN E D TECH FIX ACETABULAR FX Left 09/04/2017 @OPEN TREATMENT, ACETABULAR FX (WRVU 25.41) performed by Amy Lance MD at [facility] OR Allergies: Allergies Allergen Reactions [...] gaze No facial asymmetry Able to weakly meteorological aide BL hands 2/5, wiggles BL toes to [...] 06/14/2024 4:02 AM) Result Value WORKSTATION ID [id number] Impression Low lung volumes with crowding of bronchovascular markings without radiographically evident acute cardiopulmonary process. Thank you for letting us participate in the care of this patient. If you are a health care provider and have any questions regarding this report, please contact the number below. For patients who have questions please contact the health care program director that requested your imaging first. Electronically signed by: Beverley Valencia MD, [facility] ([phone]), at 06/14/2024 4:32 AM Request For 2nd Read CT Head (Exam End: 06/14/2024 9:46 AM) Result Value WORKSTATION ID [id number] Impression Hypoattenuating, likely cystic mass appears to [...] have questions please contact the health care program director that requested your imaging first. Electronically signed by: Galen Balderas [facility] ([phone]), at 06/14/2024 10:41 AM MRI Brain wwo Contrast (Generic) (Exam End: 2024 4:20 PM) Result Value WORKSTATION ID [id number] Impression Homogeneously enhancing 3.5 cm mass along [...] have questions please contact the health care program director that requested your imaging first. Electronically signed by: Raudel Heredia MD, [facility] ([phone]), at 2024 4:46 PM Assessment: Abram Burgos [...] focal atrophy Arm flexion 5/5 b/l Hand meteorological aide 5/5 b/l Able to wiggle toes Reflexes: [...] Neurology to sign off Americo Flores, MS4 [facility] * Care Management - Raudel Tate RN [...] Guardian Name: Bettina Burgos-sister Guardian Contact Information: [phone] Financial Decision Maker: Guardian Guardianship paperwork on [...] [facility] Outpatient Agency/Support Group Needs: senior care Agency Choices: [facility] Agency Referrals: Current referrals placed to: N/A Transportation: Barriers to discharge: Global: Discharge planning Global Comment: Coordination of returning to fdc Items to Consider for Discharge: Pt's sister and guardian Bettina Burgos has given permission for the following people from his [facility] to receive updates: Lives in [facility]) -Kemi Noriega -senior care residential case manager -Ladonna Woods -senior care RN CM Interventions today: CM is notified [...] anticipated to go return to [facility] ([facility]) with possible VNA services on top what is already offered. The patient's sister and guardian Bettina Swetetomy as assisting with dispo coordination. CM will continue to monitor progress, follow for continuity of care, and assist with discharge planning while patient is inpatient status on current unit. Investigate address and contact information for [facility] ([facility]) and place referral so they have updated information to review to assist in dispo Review team recommendations and place referrals for VNA if medical status changes after treatments/interventions. Monitor and update referrals Anticipated Date of Discharge: 06/18/2024 Raudel Tate RN Case Packing Shed Supervisor of Care Management * Consult Note - [...] Patient has previously been seen at [facility] in 2014. His deficits at that time included left hemiparesis, cortical blindness, urine incontinence, dysarthria and gait disorder. 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 According to [facility] documentation, he had a spell at his fdc that was concerning for seizure one month prior to his visit. BG at the time was in the 40s and he was started on Keppra in addition to Zonegran. [facility] neurologist planned for discontinuation of Keppra at [...] 2 mg 2 mg Intravenous Q4H PRN Tmi Yuen MD zonisamide (Zonegran) capsule 400 mg [...] EEG CONTINUOUS MONITORING INPATIENT 2024 PRO OPEN E D TECH FIX ACETABULAR FX Left 09/04/2017 @OPEN TREATMENT, ACETABULAR FX (WRVU 25.41) performed by Amy Lance MD at [facility] OR Allergies: Allergies Allergen Reactions [...] 06/14/2024 4:02 AM) Result Value WORKSTATION ID [id number] Impression Low lung volumes with crowding of bronchovascular markings without radiographically evident acute cardiopulmonary process. Thank you for letting us participate in the care of this patient. If you are a health care provider and have any questions regarding this report, please contact the number below. For patients who have questions please contact the health care program director that requested your imaging first. Electronically signed by: Beverley Valencia MD, [facility] ([phone]), at 06/14/2024 4:32 AM Request For 2nd Read CT Head (Exam End: 06/14/2024 9:46 AM) Result Value WORKSTATION ID [id number] Impression Hypoattenuating, likely cystic mass appears to [...] have questions please contact the health care program director that requested your imaging first. Electronically signed by: Galen Balderas [facility] ([phone]), at 06/14/2024 10:41 AM MRI Brain wwo Contrast (Generic) (Exam End: 2024 4:20 PM) Result Value WORKSTATION ID [id number] Impression Homogeneously enhancing 3.5 cm mass along [...] have questions please contact the health care program director that requested your imaging first. Electronically signed by: Raudel Heredia MD, [facility] ([phone]), at 2024 4:46 PM Assessment: Abram Burgos [...] Holland MD Neurology, PGY-3 Consult Neurology Service #[id number] 06/17/2024 ATTENDING NOTE: I reviewed the pertinent [...] EEG CONTINUOUS MONITORING INPATIENT 2024 PRO OPEN E D TECH FIX ACETABULAR FX Left 09/04/2017 @OPEN TREATMENT, ACETABULAR FX (WRVU 25.41) performed by Amy Lance MD at 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 Americo Flores, MS4 [facility] * Consult Note - Kellen Braxton MD [...] Patient has previously been seen at [facility] in 2014. His deficits at that time included left hemiparesis, cortical blindness, urine incontinence, dysarthria and gait disorder. 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 According to [facility] documentation, he had a spell at his fdc that was concerning for seizure one month prior to his visit. BG at the time was in the 40s and he was started on Keppra in addition to Zonegran. [facility] neurologist planned for discontinuation of Keppra at [...] EEG CONTINUOUS MONITORING INPATIENT 2024 PRO OPEN E D TECH FIX ACETABULAR FX Left 09/04/2017 @OPEN TREATMENT, ACETABULAR FX (WRVU 25.41) performed by Amy Lance MD at [facility] Allergies: Allergies Allergen Reactions [...] 06/14/2024 4:02 AM) Result Value WORKSTATION ID [id number] Impression Low lung volumes with crowding of bronchovascular markings without radiographically evident acute cardiopulmonary process. Thank you for letting us participate in the care of this patient. If you are a health care provider and have any questions regarding this report, please contact the number below. For patients who have questions please contact the health care program director that requested your imaging first. Electronically signed by: Beverley Valencia MD, [facility] ([phone]), at 06/14/2024 4:32 AM Request For 2nd Read CT Head (Exam End: 06/14/2024 9:46 AM) Result Value WORKSTATION ID [id number] Impression Hypoattenuating, likely cystic mass appears to [...] have questions please contact the health care program director that requested your imaging first. Electronically signed by: Galen Balderas [facility] ([phone]), at 06/14/2024 10:41 AM MRI Brain wwo Contrast (Generic) (Exam End: 2024 4:20 PM) Result Value WORKSTATION ID [id number] Impression Homogeneously enhancing 3.5 cm mass along [...] have questions please contact the health care program director that requested your imaging first. 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 Admitted From: Transfer from another hospital Location: [facility] Reason for Hospitalization: Per sister, patient had seizure activity for the first time in 9 years.EMS called. Past medical History: No past medical history on file. Hospitalizations Within the Past 30 Days: no previous admission in last 30 days Current Decision-Making Capacity: Guardian Name(s): Bettina Burgos Contact Information: [phone] (cell) Proxy Activated: Yes Paperwork on file?: [...] homeless or living in a detention (including now)?: No In the past 12 [...] Address confirmed as: [address] [address] Attn: Mercedez Otero [facility] [address] Social & Family Supports: All names listed below confirmed with patient as current and correct Extended Emergency Contact Information Primary Emergency Contact: Bettina Burgos Address: [address] [place] [address] [place] [address] Relation: Guardianship Secondary Emergency Contact: Lc Merlos [facility] Relation: Other Current Care Provided by: [facility] Provides Primary Care For: no one, unable/limited ability to care for self Caregiver if needed: other (see comments) (senior care) Quality of Family relationships: supportive, involved Community [...] N/A ; Prescription Coverage: Yes Preferred Pharmacy: [facility] Home Delivery - [facility] [address] [facility] [address] [facility] [address] [facility] [address] [facility] 415 [facility] [address] [facility] [address] [address] [place] Status: Patient is a : No Primary Care Provider confirmed: Ren Vaz MD [phone] Patient/Caregiver Goals of Treatment: Anticipating return to fdc when medically ready Potential Needs for Transition of Care: none Agency Referrals: [facility] Transportation: no concerns Transportation Anticipated: agency Concerns to be Addressed: other (see comments) (Needing transportation via [facility] at discharge) Assessment: Patient is admitted to service for Hyponatremia Pt is a 34 year dependent male, living in a fdc. Pt guardian is his sister, Bettina. Bettina is very involved and supportive. Guardianship paperwork is on file. Pt is cared for by his group homestaff while his finances remain in the care of his guardian. [facility] out [facility] to confirm [facility] plans. The fdc will reach out with any information regarding this. Plan going forward: Pending hospital course Care Management team will continue to follow and assist with discharge planing and coordination of care as indicated. JAMSHID Ramirez Medicine Pager [phone] * Consult Note - Braxton, Kellen H, [...] Patient has previously been seen at [facility] in 2014. His deficits at that time included left hemiparesis, cortical blindness, urine incontinence, dysarthria and gait disorder. 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 According to [facility] documentation, he had a spell at his fdc that was concerning for seizure one month prior to his visit. BG at the time was in the 40s and he was started on Keppra in addition to Zonegran. [facility] neurologist planned for discontinuation of Keppra at [...] Surgical History: Procedure Laterality Date PRO OPEN E D TECH FIX ACETABULAR FX Left 09/04/2017 @OPEN TREATMENT, ACETABULAR FX (WRVU 25.41) performed by Amy Lance MD at [facility] OR Allergies: Allergies Allergen Reactions [...] 06/14/2024 4:02 AM) Result Value WORKSTATION ID [id number] Impression Low lung volumes with crowding of bronchovascular markings without radiographically evident acute cardiopulmonary process. Thank you for letting us participate in the care of this patient. If you are a health care provider and have any questions regarding this report, please contact the number below. For patients who have questions please contact the health care program director that requested your imaging first. Electronically signed by: Beverley Valencia MD, [facility] ([phone]), at 06/14/2024 4:32 AM Request For 2nd Read CT Head (Exam End: 06/14/2024 9:46 AM) Result Value WORKSTATION ID [id number] Impression Hypoattenuating, likely cystic mass appears to [...] have questions please contact the health care program director that requested your imaging first. Electronically signed by: Galen Balderas [facility] ([phone]), at 06/14/2024 10:41 AM Assessment: Abram Burgos [...] Kirkpatrick MD - 06/14/2024 11:59 AM EST [facility] NEUROSURGERY CONSULT NOTE ID: Abram Burgos 33 [...] with generalized stiffening. He was brought to [facility], where he was found to have Na of 121. He had a tongue laceration. In the ED there he had an additional witnessed seizure. He was transferred to the [facility] for a higher level of care [...] tumor resection with Dr. Álvarez at [facility]. This was complicated by arterial bleeding with [...] Surgical History: Procedure Laterality Date PRO OPEN E D TECH FIX ACETABULAR FX Left 09/04/2017 @OPEN TREATMENT, ACETABULAR FX (WRVU 25.41) performed by Amy Lance MD at [facility] OR MEDICATIONS: No current facility-administered [...] file Social History Narrative Lives at the [facility], moved in 11/07/2014. Social Determinants of Health [...] neurosurgery attending. No future appointments. Neurosurgery Pager: [phone] Gonzalez Kirkpatrick MD Neurosurgery PGY-1 06/14/2024 6:44 [...] Surgical History: Procedure Laterality Date PRO OPEN E D TECH FIX ACETABULAR FX Left 09/04/2017 @OPEN TREATMENT, ACETABULAR FX (WRVU 25.41) performed by Amy Lance MD at [facility] OR Social History: Patient lives [...] Sit to stand: CGA x2 handhold Ambulation: [facility] x2 handhold for [id number] transfer EOB<>commode Stand to sit: CGA Sit [...] Discharge planning. Total Minutes, Occupational Therapy: 16 ([id number] (evaluation)) 2017 OT Evaluation Code Rationale: Diagnosis [...] and measurable assessment of functional outcome. Pager: [phone] Dinorah Navas OTR/L 06/14/2024 Occupational Therapy Rehabilitation [...] follows with Dr. Zaidi of Endocrinology at [facility]. Recently saw a covering provider, Day Littlejohn in March 2024. He currently resides in a fdc, [facility] where nurses and medical assistants [...] Surgical History: Procedure Laterality Date PRO OPEN E D TECH FIX ACETABULAR FX Left 09/04/2017 @OPEN TREATMENT, ACETABULAR FX (WRVU 25.41) performed by Amy Lance MD at [facility] OR No family history on [...] file Social History Narrative Lives at the [facility], moved in 11/07/2014. Social Determinants of Health [...] this is possible given there is often child care leader turnover and not everyone is up to [...] with Dr. Morris. Crista Gill MD. PGY4 [facility] Endocrinology Pager #[phone] I have seen the patient and reviewed [...] is effective and safe Shola Morris MD [employer] Endocrinology Section [facility] * Consult Note - Kellen Braxton [...] Patient has previously been seen at [facility] in 2014. His deficits at that time included left hemiparesis, cortical blindness, urine incontinence, dysarthria and gait disorder. 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 According to [facility] documentation, he had a spell at his fdc that was concerning for seizure one month prior to his visit. BG at the time was in the 40s and he was started on Keppra in addition to Zonegran. [facility] neurologist planned for discontinuation of Keppra at [...] tablet 0.15 mg 0.15 mg Oral Nightly Minerav Small PA heparin (porcine) (5,000 units/1 mL) [...] Surgical History: Procedure Laterality Date PRO OPEN E D TECH FIX ACETABULAR FX Left 09/04/2017 @OPEN TREATMENT, ACETABULAR FX (WRVU 25.41) performed by Amy Lance MD at [facility] Allergies: Allergies Allergen Reactions [...] Flexor digitorum profundus Digit II-V flexion / table saw operator 5 5 L2-3 Iliopsoas Hip flexion [...] 06/14/2024 4:02 AM) Result Value WORKSTATION ID [id number] Impression Low lung volumes with crowding of bronchovascular markings without radiographically evident acute cardiopulmonary process. Thank you for letting us participate in the care of this patient. If you are a health care provider and have any questions regarding this report, please contact the number below. For patients who have questions please contact the health care program director that requested your imaging first. Electronically signed by: Beverley Valencia MD, [facility] ([phone]), at 06/14/2024 4:32 AM Assessment: Abram Burgos [...] 2024 4:20 PM EST Unlisted Mri Procedure ([id number]) 2024 2:56 PM EST Please evaluate lesion [...] 06/14/2024 9:46 AM EST URINALYSIS BEAKER MICROSCOPIC ([facility]) SHEEBA 06/14/2024 8:06 AM EST _URINALYSIS [...] - 5.2 g/dL 06/21/2024 1:30 AM EST [facility] Aspartate Aminotransferase 47(H) <=39 unit/L 06/21/2024 1:30 AM EST [facility] Alanine Aminotransferase 64(H) 0 - 55 unit/L 06/21/2024 1:30 AM [facility] Alkaline Phosphatase 141(H) 40 - 130 unit/L 06/21/2024 1:30 AM [facility] Bilirubin, Total <0.2 <=1.3 mg/dL 06/21/2024 1:30 AM EST [facility] Bilirubin, Direct <0.2 0.0 - 0.3 mg/dL 06/21/2024 1:30 AM EST [facility] Protein, Total 7.1 6.1 - 8.0 g/dL 06/21/2024 1:30 AM [facility] Blood VENOUS BLOOD SPECIMEN / Unknown Venipuncture / Unknown 06/21/2024 12:50 AM EST 06/21/2024 12:56 AM EST Martinez Reynolds MD CHEMISTRY ORDERABLES [facility] [place] [address] * (ABNORMAL) CBC (with Diff) (06/21/2024 12:50 AM EST) [facility] Signature White Blood Cell 7.52 4.00 - [...] EST Martinez Reynolds MD HEMATOLOGY ORDERABLE S [facility] [place] [address] * Phosphorus (06/21/2024 12:50 AM EST) Pathologist [facility] Phosphorus 3.2 2.5 - 4.5 mg/dL 06/21/2024 1:30 AM [facility] Blood VENOUS BLOOD SPECIMEN / Unknown Venipuncture / Unknown 06/21/2024 12:50 AM EST 06/21/2024 12:56 AM EST Martinez Reynolds MD CHEMISTRY ORDERABLES Performing Organization Address City/[facility] [address]/ZIP Co de Phone Number [facility] [place] [address] * Magnesium (06/21/2024 12:50 AM EST) [facility] Magnesium 0.81 0.69 - 1.07 mMol/L 06/21/2024 1:30 AM [facility] Blood VENOUS BLOOD SPECIMEN / Unknown Venipuncture / Unknown 06/21/2024 12:50 AM EST 06/21/2024 12:56 AM EST Martinez Reynolds MD CHEMISTRY ORDERABLES Performing Organization Address City/[facility] [address]/ZIP Co de Phone Number [facility] [place] [address] * (ABNORMAL) Basic Metabolic Panel (06/21/2024 12:50 AM EST) [facility] Glucose 126 65 - 199 mg/dL 06/21/2024 [...] 5 - 15 mMol/L 06/21/2024 1:44 AM [facility] Calcium 9.0 8.5 - 10.5 mg/dL 06/21/2024 1:44 AM [facility] Est Glomerular Filtration Rate - Male 118 mL/min/1. 73 m?? 06/21/2024 1:44 AM [facility] Comment: This patient's estimated GFR [...] AM EST Martinez Reynolds MD CHEMISTRY ORDERABLES [facility] [place] [address] * (ABNORMAL) Hepatic Function Panel (06/20/2024 12:53 AM EST) Albumin 4.4 3.2 - 5.2 g/dL 06/20/2024 1:42 AM [facility] Aspartate Aminotransferase 65(H) <=39 unit/L 06/20/2024 1:42 AM [facility] Alanine Aminotransferase 80(H) 0 - 55 unit/L 06/20/2024 1:42 AM [facility] Alkaline Phosphatase 128 40 - 130 unit/L 06/20/2024 1:42 AM [facility] Bilirubin, Total <0.2 <=1.3 mg/dL 06/20/2024 1:42 AM [facility] Bilirubin, Direct <0.2 0.0 - 0.3 mg/dL 06/20/2024 1:42 AM [facility] Protein, Total 7.4 6.1 - 8.0 g/dL 06/20/2024 1:42 AM [facility] Blood VENOUS BLOOD SPECIMEN / Unknown Venipuncture / Unknown 06/20/2024 12:53 AM EST 06/20/2024 1:11 AM EST Martinez Reynolds MD CHEMISTRY ORDERABLES Performing Organization Address City/State/[facility] Co de Phone Number [facility] [place] [phone] * (ABNORMAL) CBC (with Diff) (06/20/2024 12:53 AM EST) White Blood Cell 5.59 4.00 - 9.50 x10(3)/mc L 06/20/2024 1:23 AM [facility] Red Blood Cell 5.50 4.58 - 5.54 x10(6)/mc L 06/20/2024 1:23 AM [facility] Hemoglobin 13.5(L) 13.7 - 16.5 g/dL 06/20/2024 1:23 AM [facility] Hematocrit 40.9 40.5 - 48.5 % 06/20/2024 1:23 AM [facility] Mean Cell Volume 74.4(L) 82.9 - 93.1 fL 06/20/2024 1:23 AM [facility] Mean Cell Hemoglobin 24.5(L) 27.5 - 32.1 pg 06/20/2024 1:23 AM [facility] Mean Cell Hemoglobin Concentration 33.0 32.0 - 35.7 g/dL 06/20/2024 1:23 AM [facility] Platelet 303 145 - 357 x10(3)/mc L 06/20/2024 1:23 AM [facility] Mean Platelet Volume 8.9 7.6 - 12.9 fL 06/20/2024 1:23 AM [facility] RDW Standard Deviation 39.6 36.0 - 45.0 fL 06/20/2024 1:23 AM [facility] RDW coefficient of variation 14.7(H) 11.4 - 13.8 % 06/20/2024 1:23 AM [facility] NRBC% auto 0.0 % 06/20/2024 1:23 AM [facility] NRBC Absolute <0.01 <0.01 x10(3)/mc L 06/20/2024 1:23 AM [facility] Neutrophil % 54.2 % 06/20/2024 1:23 AM [facility] Neutrophil Absolute (ANC) - Automated 3.03 1.70 - 6.10 x10(3)/mc L 06/20/2024 1:23 AM [facility] Lymph % 31.1 % 06/20/2024 1:23 AM [facility] Lymph Absolute 1.74 0.90 - 3.20 x10(3)/mc L 06/20/2024 1:23 AM [facility] Monocyte % 11.8 % 06/20/2024 1:23 AM [facility] Monocyte Absolute 0.66 0.30 - 0.90 x10(3)/mc L 06/20/2024 1:23 AM [facility] Eos % 2.0 % 06/20/2024 1:23 AM [facility] Eos Absolute 0.11 0.00 - 0.40 x10(3)/mc L 06/20/2024 1:23 AM [facility] Basophil % 0.4 % 06/20/2024 1:23 AM EST [facility] Baso Absolute <0.04 0.00 - 0.10 x10(3)/mc L 06/20/2024 1:23 AM EST [facility] Immature Gran % 0.5 % 1:23 AM EST [facility] Immature Gran Absolute <0.04 0.00 - 0.04 x10(3)/mc L 06/20/2024 1:23 AM EST [facility] Blood VENOUS BLOOD SPECIMEN / Unknown Venipuncture / Unknown 06/20/2024 12:53 AM EST 06/20/2024 1:12 AM EST Martinez Reynolds MD HEMATOLOGY ORDERABLE S [facility] [place] [address] * Phosphorus (06/20/2024 12:53 AM EST) Phosphorus 3.7 2.5 - 4.5 mg/dL 06/20/2024 1:42 AM EST [facility] Blood VENOUS BLOOD SPECIMEN / Unknown Venipuncture / Unknown 06/20/2024 12:53 AM EST 06/20/2024 1:11 AM EST Martinez Reynolds MD CHEMISTRY ORDERABLES [facility] [place] [address] * Magnesium (06/20/2024 12:53 AM EST) Magnesium 0.76 0.69 - 1.07 mMol/L 06/20/2024 1:42 AM EST [facility] Blood VENOUS BLOOD SPECIMEN / Unknown Venipuncture / Unknown 06/20/2024 12:53 AM EST 06/20/2024 1:11 AM EST Martinez Reynolds MD CHEMISTRY ORDERABLES [facility] [place] [address] * (ABNORMAL) Basic Metabolic Panel (06/20/2024 12:53 AM EST) Glucose 95 65 - 199 mg/dL 06/20/2024 1:42 AM [facility] Comment:Glucose Concentratio n >=200 mg/dL plus symptoms is consistent with Diabetes Mellitus. Blood Urea Nitrogen 10 10 - 20 mg/dL 06/20/2024 1:42 AM [facility] Creatinine 0.75(L) 0.80 - 1.50 mg/dL 06/20/2024 1:42 AM [facility] Sodium 137 135 - 145 mMol/L 06/20/2024 1:42 AM [facility] Potassium 3.7 3.5 - 5.0 mMol/L 06/20/2024 1:42 AM [facility] Chloride 102 98 - 107 mMol/L 06/20/2024 1:42 AM [facility] Carbon Dioxide 20(L) 22 - 31 mMol/L 06/20/2024 1:42 AM [facility] Anion Gap 15 5 - 15 mMol/L 06/20/2024 1:42 AM [facility] Calcium 9.1 8.5 - 10.5 mg/dL 06/20/2024 1:42 AM [facility] Est Glomerular Filtration Rate - Male 121 mL/min/1. 73 m?? 06/20/2024 1:42 AM [facility] Comment: This patient's estimated GFR [...] Reynolds MD CHEMISTRY ORDERABLES Performing Organization Address City/[facility] [address]/ZIP Co de Phone Number [facility] [place] [address] * (ABNORMAL) Hepatic Function Panel (06/19/2024 4:10 AM EST) Albumin 4.2 3.2 - 5.2 g/dL 06/19/2024 4:51 AM [facility] Aspartate Aminotransferase 57(H) <=39 unit/L 06/19/2024 4:51 AM [facility] Alanine Aminotransferase 76(H) 0 - 55 unit/L 06/19/2024 4:51 AM [facility] Alkaline Phosphatase 133(H) 40 - 130 unit/L 06/19/2024 4:51 AM [facility] Bilirubin, Total 0.2 <=1.3 mg/dL 06/19/2024 4:51 AM [facility] Bilirubin, Direct <0.2 0.0 - 0.3 mg/dL 06/19/2024 4:51 AM [facility] [facility] Protein, Total 7.5 6.1 - 8.0 g/dL 06/19/2024 4:51 AM [facility] Blood VENOUS BLOOD SPECIMEN / Unknown Venipuncture / Unknown 06/19/2024 4:10 AM EST 06/19/2024 4:21 AM EST Martinez Reynolds MD CHEMISTRY ORDERABLES Performing Organization Address City/[facility] [address]/ZIP Co de Phone Number [facility] [place] [address] * (ABNORMAL) CBC (with Diff) (06/19/2024 4:10 AM [facility]) White Blood Cell 6.86 4.00 - 9.50 x10(3)/mc L 06/19/2024 4:28 AM [facility] Red Blood Cell 5.60(H) 4.58 - 5.54 x10(6)/mc L 06/19/2024 4:28 AM [facility] Hemoglobin 13.8 13.7 - 16.5 g/dL 06/19/2024 4:28 AM [facility] Hematocrit 41.6 40.5 - 48.5 % 06/19/2024 4:28 AM [facility] Mean Cell Volume 74.3(L) 82.9 - 93.1 fL 06/19/2024 4:28 AM [facility] Mean Cell Hemoglobin 24.6(L) 27.5 - 32.1 pg 06/19/2024 4:28 AM [facility] Mean Cell Hemoglobin Concentration 33.2 32.0 - 35.7 g/dL 06/19/2024 4:28 AM [facility] Platelet 297 145 - 357 x10(3)/mc L 06/19/2024 4:28 AM [facility] Mean Platelet Volume 9.1 7.6 - 12.9 fL 06/19/2024 4:28 AM [facility] RDW Standard Deviation 39.1 36.0 - 45.0 fL 06/19/2024 4:28 AM [facility] RDW coefficient of variation 14.8(H) 11.4 - 13.8 % 06/19/2024 4:28 AM [facility] NRBC% auto 0.0 % 06/19/2024 4:28 AM [facility] NRBC Absolute <0.01 <0.01 x10(3)/mc L 06/19/2024 4:28 AM [facility] Neutrophil % 64.0 % 06/19/2024 4:28 AM [facility] Neutrophil Absolute (ANC) - Automated 4.39 1.70 - 6.10 x10(3)/mc L 06/19/2024 4:28 AM [facility] Lymph % 28.7 % 06/19/2024 4:28 AM [facility] Lymph Absolute 1.97 0.90 - 3.20 x10(3)/mc L 06/19/2024 4:28 AM [facility] Monocyte % 4.1 % 06/19/2024 4:28 AM [facility] Monocyte Absolute 0.28(L) 0.30 - 0.90 x10(3)/mc L 06/19/2024 4:28 AM [facility] Eos % 2.2 % 06/19/2024 4:28 AM [facility] Eos Absolute 0.15 0.00 - 0.40 x10(3)/mc L 06/19/2024 4:28 AM [facility] Basophil % 0.4 % 06/19/2024 4:28 AM [facility] Baso Absolute <0.04 0.00 - 0.10 x10(3)/mc L 06/19/2024 4:28 AM [facility] Immature Gran % 0.6 % 4:28 AM [facility] Immature Gran Absolute 0.04 0.00 - 0.04 x10(3)/mc L 06/19/2024 4:28 AM [facility] Blood VENOUS BLOOD SPECIMEN / Unknown Venipuncture / Unknown 06/19/2024 4:10 AM EST 06/19/2024 4:21 AM EST Martinez Reynolds MD HEMATOLOGY ORDERABLE S [facility] [place] [address] * (ABNORMAL) Phosphorus (06/19/2024 4:10 AM EST) Phosphorus 5.0(H) 2.5 - 4.5 mg/dL 06/19/2024 4:51 AM EST [facility] Blood VENOUS BLOOD SPECIMEN / Unknown Venipuncture / Unknown 06/19/2024 4:10 AM EST 06/19/2024 4:21 AM EST Martinez Reynolds MD CHEMISTRY ORDERABLES Performing Organization Address [facility] [address]/[facility] Co de Phone Number [facility] [place] [address] * Magnesium (06/19/2024 4:10 AM EST) [facility] Magnesium 0.74 0.69 - 1.07 mMol/L 06/19/2024 4:51 AM [facility] Blood VENOUS BLOOD SPECIMEN / Unknown Venipuncture / Unknown 06/19/2024 4:10 AM EST 06/19/2024 4:21 AM EST Martinez Reynolds MD CHEMISTRY ORDERABLES Performing Organization Address City/[facility] [address]/[facility] Co de Phone Number [facility] [place] [address] * (ABNORMAL) Basic Metabolic Panel (06/19/2024 4:10 AM EST) [facility] Glucose 112 65 - 199 mg/dL 06/19/2024 4:51 AM [facility] Comment:Glucose Concentratio n >=200 mg/dL plus symptoms is consistent with Diabetes Mellitus. Blood Urea Nitrogen 19 10 - 20 mg/dL 06/19/2024 4:51 AM [facility] Creatinine 0.86 0.80 - 1.50 mg/dL 06/19/2024 4:51 AM [facility] Sodium 135 135 - 145 mMol/L 06/19/2024 4:51 AM [facility] Potassium 3.8 3.5 - 5.0 mMol/L 06/19/2024 4:51 AM [facility] Chloride 97(L) 98 - 107 mMol/L 06/19/2024 4:51 AM EST [facility] Carbon Dioxide 25 22 - 31 mMol/L 06/19/2024 4:51 AM [facility] Anion Gap 13 5 - 15 mMol/L 06/19/2024 4:51 AM EST [facility] Calcium 9.4 8.5 - 10.5 mg/dL 06/19/2024 4:51 AM EST [facility] Est Glomerular Filtration Rate - Male 117 mL/min/1. 73 m?? 06/19/2024 4:51 AM EST [facility] Comment: This patient's estimated [...] Reynolds MD CHEMISTRY ORDERABLES Performing Organization Address City/State/[facility] Co de Phone Number [facility] [place] [address] * (ABNORMAL) Urinalysis with reflex Culture (06/19/2024 3:22 AM EST) Glucose, Urine Dipstick Negative Negative 06/19/2024 3:37 AM EST [facility] Protein, Urine Dipstick Negative Negative 06/19/2024 3:37 AM EST [facility] Bilirubin, Urine Dipstick Negative [...] [facility] Specific [place] Urine Automated 1.021 1.005 - 1.030 06/19/2024 [...] AM EST Pamela [place] [address] * XR Chest One View (06/18/2024 7:55 PM EST) WORKSTATION ID [id number] DH RAD Anatomical Region Laterality Modality Chest [...] have questions please contact the health care program director that requested your imaging first. ? Electronically signed by: Tobias Sotomayor MD, [facility] ([phone]), at 06/18/2024 8:09 PM Narrative 06/18/2024 8:09 [...] who have questions please contactthe health care program director that requested your imaging first. Electronically signed by: Tobias Sotomayor MD, [facility]([phone]), at 06/18/2024 8:09 PM Pamela E Alex DO IMG DX ORDERABLES * Blood culture (06/18/2024 7:00 PM EST) Blood Culture No growth at 120 hours 06/23/2024 8:00 PM EST [facility] Blood VENOUS BLOOD SPECIMEN / Unknown Venipuncture / Unknown 06/18/2024 7:00 PM EST 06/18/2024 7:05 PM EST Pamela E Alex DO MICROBIOLOGY - BL OOD ORDERABLES Performing Organization Address [facility] [address]/[facility] Co de Phone Number [facility] [place] [address] * (ABNORMAL) Blood culture (06/18/2024 7:00 PM EST) Blood Culture Coagulase Negative Staphylococcus species(Critical) VITEK 2 METHOD 06/23/2024 6:52 AM [facility] Comment: detected by PCR Interpretation of the importance of skin akbar such as Coag Negative Staph, Viridans Strep, Corynebacteria and other Gram Positive orgs from a single Blood Culture set requires clinical correlation. Gram Stain Anaerobic Bottle: Gram positive cocci in clusters(Critical ) 06/23/2024 6:52 AM EST [facility] Comment:This is an appended report. These results have been appended to a previously preliminary verified report. Blood VENOUS BLOOD SPECIMEN / Unknown Venipuncture / Unknown 06/18/2024 7:00 PM EST 06/18/2024 7:05 PM EST Pamela E Alex DO MICROBIOLOGY - BL OOD ORDERABLES Performing Organization Address [facility] [address]/ZIP Co de Phone Number [facility] [place] [address] * POC, GLUCOSE (06/18/2024 6:55 PM EST) Glucometer, POC 100 65 - 199 mg/dL 06/18/2024 6:56 PM EST [facility] Comment:Supplemental ranges: <140 mg/dL before meals <180 mg/dL all other times of the day. Blood CAPILLARY BLOOD / Unknown 06/18/2024 6:55 PM EST 06/18/2024 6:56 PM EST Pamela Johnson DO POINT OF CARE TABATHA T ORDERABLES [facility] [place] [address] * EKG 12 Lead (06/18/2024 1:41 PM EST) [facility] Ventricular rate 47 BPM MUSE SYSTEM Atrial Rate 47 BPM MUSE SYSTEM P-R Interval 186 ms MUSE SYSTEM QRS Duration 114 ms MUSE SYSTEM Q-T Interval 558 ms MUSE SYSTEM QTC Calculated (Bezet) 493 ms MUSE SYSTEM Calculated P [place] 11 degrees MUSE SYSTEM Calculated R [place] 45 degrees MUSE SYSTEM Calculated T [place] 45 degrees MUSE SYSTEM INTERPRETATION Sinus bradycardia [...] - 145 mMol/L 06/18/2024 1:01 PM EST [facility] Blood VENOUS BLOOD SPECIMEN / Unknown Venipuncture / Unknown 06/18/2024 12:22 PM EST 06/18/2024 12:35 PM EST Pameladillon Johnson DO CHEMISTRY ORDERAB LES [facility] [place] [address] * CT Head wo Contrast (Generic) (06/18/2024 11:18 AM EST) WORKSTATION ID [id number] RAD Anatomical Region Laterality Modality Head Computed [...] have questions please contact the health care program director that requested your imaging first. ? Narrative [...] temporal lobe and anterior right frontal lobe. Loew matter white matter differentiation is otherwise well [...] who have questions please contactthe health care program director that requested your imaging first. Electronically signed by: Jimbo Casillas MD, [facility]([phone]), at 06/18/2024 11:37 AM Pamela Johnson DO IMG CT ORDERABLES * (ABNORMAL) Hepatic Function Panel (06/18/2024 1:26 AM EST) Albumin 4.2 3.2 - 5.2 g/dL 06/18/2024 2:02 AM [facility] Aspartate Aminotransferase 52(H) <=39 unit/L 06/18/2024 2:02 AM [facility] Alanine Aminotransferase 61(H) 0 - 55 unit/L 06/18/2024 2:02 AM [facility] Alkaline Phosphatase 118 40 - 130 unit/L 06/18/2024 2:02 AM [facility] Bilirubin, Total 0.3 <=1.3 mg/dL 06/18/2024 2:02 AM [facility] Bilirubin, Direct <0.2 0.0 - 0.3 mg/dL 06/18/2024 2:02 AM [facility] Protein, Total 6.9 6.1 - 8.0 g/dL 06/18/2024 2:02 AM [facility] Blood VENOUS BLOOD SPECIMEN / Unknown Venipuncture / Unknown 06/18/2024 1:26 AM EST 06/18/2024 1:34 AM EST Martinez Reynolds MD CHEMISTRY ORDERABLES Performing Organization Address City/State/[facility] Co de Phone Number [facility] [place] [address] * (ABNORMAL) CBC (with Diff) (06/18/2024 1:26 AM EST) White Blood Cell 9.78(H) 4.00 - 9.50 x10(3)/mc L 06/18/2024 1:38 AM [facility] Red Blood Cell 5.02 4.58 - 5.54 x10(6)/mc L 06/18/2024 1:38 AM [facility] Hemoglobin 12.4(L) 13.7 - 16.5 g/dL 06/18/2024 1:38 AM [facility] Hematocrit 37.2(L) 40.5 - 48.5 % 06/18/2024 1:38 AM [facility] Mean Cell Volume 74.1(L) 82.9 - 93.1 fL 06/18/2024 1:38 AM [facility] Mean Cell Hemoglobin 24.7(L) 27.5 - 32.1 pg 06/18/2024 1:38 AM [facility] Mean Cell Hemoglobin Concentration 33.3 32.0 - 35.7 g/dL 06/18/2024 1:38 AM [facility] Platelet 262 145 - 357 x10(3)/mc L 06/18/2024 1:38 AM [facility] Mean Platelet Volume 9.2 7.6 - 12.9 fL 06/18/2024 1:38 AM [facility] RDW Standard Deviation 40.8 36.0 - 45.0 fL 06/18/2024 1:38 AM [facility] RDW coefficient of variation 15.3(H) 11.4 - 13.8 % 06/18/2024 1:38 AM [facility] NRBC% auto 0.0 % 06/18/2024 1:38 AM [facility] NRBC Absolute <0.01 <0.01 x10(3)/mc L 06/18/2024 1:38 AM [facility] Neutrophil % 72.8 % 06/18/2024 1:38 AM [facility] Neutrophil Absolute (ANC) - Automated 7.12(H) 1.70 - 6.10 x10(3)/mc L 06/18/2024 1:38 AM [facility] Lymph % 16.9 % 06/18/2024 1:38 AM [facility] Lymph Absolute 1.65 0.90 - 3.20 x10(3)/mc L 06/18/2024 1:38 AM [facility] Monocyte % 8.7 % 06/18/2024 1:38 AM [facility] Monocyte Absolute 0.85 0.30 - 0.90 x10(3)/mc L 06/18/2024 1:38 AM [facility] Eos % 1.0 % 06/18/2024 1:38 AM [facility] Eos Absolute 0.10 0.00 - 0.40 x10(3)/mc L 06/18/2024 1:38 AM [facility] Basophil % 0.2 % 06/18/2024 1:38 AM [facility] Baso Absolute <0.04 0.00 - 0.10 x10(3)/mc L 06/18/2024 1:38 AM [facility] Immature Gran % 0.4 % 1:38 AM [facility] Immature Gran Absolute 0.04 0.00 - 0.04 x10(3)/mc L 06/18/2024 1:38 AM EST [facility] Blood VENOUS BLOOD SPECIMEN / Unknown Venipuncture / Unknown 06/18/2024 1:26 AM EST 06/18/2024 1:34 AM EST Martinez Reynolds MD HEMATOLOGY ORDERABLE S Performing Organization Address City/[facility] [address]/ZIP Co de Phone Number [facility] [place] [address] * (ABNORMAL) Phosphorus (06/18/2024 1:26 AM EST) Phosphorus 5.7(H) 2.5 - 4.5 mg/dL 06/18/2024 2:02 AM EST [facility] Blood VENOUS BLOOD SPECIMEN / Unknown Venipuncture / Unknown 06/18/2024 1:26 AM EST 06/18/2024 1:34 AM EST Martinez Reynolds MD CHEMISTRY ORDERABLES Performing Organization Address City/[facility] [address]/[facility] Co de Phone Number [facility] [place] [address] * Magnesium (06/18/2024 1:26 AM EST) Pathologist [facility] Magnesium 0.84 0.69 - 1.07 mMol/L 06/18/2024 2:02 AM EST [facility] Blood VENOUS BLOOD SPECIMEN / Unknown Venipuncture / Unknown 06/18/2024 1:26 AM EST 06/18/2024 1:34 AM EST Martinez Reynolds MD CHEMISTRY ORDERABLES Performing Organization Address City/[facility] [address]/ZIP Co de Phone Number [facility] [place] [address] * Basic Metabolic Panel (06/18/2024 1:26 AM EST) Glucose 106 65 - 199 mg/dL 06/18/2024 2:02 AM EST [facility] Comment:Glucose Concentratio n >=200 mg/dL plus symptoms is consistent with Diabetes Mellitus. Blood Urea Nitrogen 15 10 - 20 mg/dL 06/18/2024 2:02 AM [facility] Creatinine 1.05 0.80 - 1.50 mg/dL 06/18/2024 2:02 AM [facility] Sodium 138 135 - 145 mMol/L 06/18/2024 2:02 AM [facility] Potassium 4.4 3.5 - 5.0 mMol/L 06/18/2024 2:02 AM [facility] Chloride 102 98 - 107 mMol/L 06/18/2024 2:02 AM [facility] Carbon Dioxide 25 22 - 31 mMol/L 06/18/2024 2:02 AM [facility] Anion Gap 11 5 - 15 mMol/L 06/18/2024 2:02 AM [facility] Calcium 9.3 8.5 - 10.5 mg/dL 06/18/2024 2:02 AM [facility] Est Glomerular Filtration Rate - Male 96 mL/min/1. 73 m?? 06/18/2024 2:02 AM [facility] Comment: This patient's estimated GFR [...] AM EST Martinez Reynolds MD CHEMISTRY ORDERABLES [facility] [place] [address] * EKG 12 Lead (06/18/2024 12:53 AM EST) Pathologist [facility] [place] Ventricular rate 79 BPM MUSE SYSTEM Atrial Rate 79 BPM MUSE SYSTEM P-R Interval 160 ms MUSE SYSTEM QRS Duration 98 ms MUSE SYSTEM Q-T Interval 420 ms MUSE SYSTEM QTC Calculated (Bezet) 481 ms MUSE SYSTEM Calculated P [place] 17 degrees MUSE SYSTEM Calculated R [place] 46 degrees MUSE SYSTEM Calculated T [place] 45 degrees MUSE SYSTEM INTERPRETATION Normal sinus rhythm Nonspecific T wave abnormality Prolonged QT Abnormal ECG When compared with ECG of 14-JUN-2024 01:04, Nonspecific T wave abnormality now evident in Anterior leads I personally reviewed the tracing and edited the fellows interpretation Confirmed by fellow MD Corbin, Maninder ([id number]) on 06/18/2024 4:57:53 PM Confirmed by Anthony Penn MD ([id number]) on 06/19/2024 3:21:54 PM MUSE SYSTEM 06/18/2024 12:5 3 AM EST 06/19/2024 3:21 PM EST Samantha Babb MD ECG ORDERABLES MUSE SYSTEM * Sodium (06/17/2024 5:50 PM EST) Pathologist [facility] [place] Sodium 141 135 - 145 mMol/L 06/17/2024 6:38 PM EST [facility] Blood VENOUS BLOOD SPECIMEN / Unknown Venipuncture / Unknown 06/17/2024 5:50 PM EST 06/17/2024 6:07 PM EST Channing Ballesteros MD CHEMISTRY ORDERABLES [facility] [place] [address] * (ABNORMAL) Hepatic Function Panel (06/17/2024 11:58 AM EST) Pathologist [facility] [place] Albumin 4.2 3.2 - 5.2 g/dL 06/17/2024 12:45 PM EST [facility] Aspartate Aminotransferase 37 <=39 unit/L 06/17/2024 12:45 PM [facility] Alanine Aminotransferase 58(H) 0 - 55 unit/L 06/17/2024 12:45 PM [facility] Alkaline Phosphatase 118 40 - 130 unit/L 06/17/2024 12:45 PM [facility] Bilirubin, Total 0.2 <=1.3 mg/dL 06/17/2024 12:45 PM [facility] Bilirubin, Direct <0.2 0.0 - 0.3 mg/dL 06/17/2024 12:45 PM [facility] Protein, Total 7.1 6.1 - 8.0 g/dL 06/17/2024 12:45 PM [facility] Blood VENOUS BLOOD SPECIMEN / Unknown Venipuncture / Unknown 06/17/2024 11:58 AM EST 06/17/2024 12:11 PM EST Pamela Johnson DO CHEMISTRY ORDERAB LES [facility] [place] [address] * Sodium (06/17/2024 11:58 AM EST) Sodium 141 135 - 145 mMol/L 06/17/2024 12:45 PM EST [facility] Blood VENOUS BLOOD SPECIMEN / Unknown Venipuncture / Unknown 06/17/2024 11:58 AM EST 06/17/2024 12:11 PM EST Channing Ballesteros MD CHEMISTRY ORDERABLES [facility] [place] [address] * Sodium (06/17/2024 6:23 AM EST) Sodium 140 135 - 145 mMol/L 06/17/2024 6:53 AM EST [facility] Blood VENOUS BLOOD SPECIMEN / Unknown Venipuncture / Unknown 06/17/2024 6:23 AM EST 06/17/2024 6:29 AM EST Channing Ballesteros MD CHEMISTRY ORDERABLES [facility] [place] [address] * (ABNORMAL) CBC (with Diff) (06/17/2024 12:22 AM EST) White Blood Cell 6.81 4.00 - 9.50 x10(3)/mc L 06/17/2024 12:37 AM [facility] Red Blood Cell 5.20 4.58 - 5.54 x10(6)/mc L 06/17/2024 12:37 AM [facility] Hemoglobin 12.9(L) 13.7 - 16.5 g/dL 06/17/2024 12:37 AM [facility] Hematocrit 37.9(L) 40.5 - 48.5 % 06/17/2024 12:37 AM [facility] Mean Cell Volume 72.9(L) 82.9 - 93.1 fL 06/17/2024 12:37 AM [facility] Mean Cell Hemoglobin 24.8(L) 27.5 - 32.1 pg 06/17/2024 12:37 AM [facility] Mean Cell Hemoglobin Concentration 34.0 32.0 - 35.7 g/dL 06/17/2024 12:37 AM [facility] Platelet 301 145 - 357 x10(3)/mc L 06/17/2024 12:37 AM [facility] Mean Platelet Volume 9.0 7.6 - 12.9 fL 06/17/2024 12:37 AM [facility] RDW Standard Deviation 38.8 36.0 - 45.0 fL 06/17/2024 12:37 AM [facility] RDW coefficient of variation 14.9(H) 11.4 - 13.8 % 06/17/2024 12:37 AM [facility] NRBC% auto 0.0 % 06/17/2024 12:37 AM [facility] NRBC Absolute <0.01 <0.01 x10(3)/mc L 06/17/2024 12:37 AM [facility] Neutrophil % 58.2 % 06/17/2024 12:37 AM [facility] Neutrophil Absolute (ANC) - Automated 3.96 1.70 - 6.10 x10(3)/mc L 06/17/2024 12:37 AM [facility] Lymph % 30.1 % 06/17/2024 12:37 AM [facility] Lymph Absolute 2.05 0.90 - 3.20 x10(3)/mc L 06/17/2024 12:37 AM [facility] Monocyte % 9.8 % 06/17/2024 12:37 AM [facility] Monocyte Absolute 0.67 0.30 - 0.90 x10(3)/mc L 06/17/2024 12:37 AM [facility] Eos % 1.0 % 06/17/2024 12:37 AM [facility] Eos Absolute 0.07 0.00 - 0.40 x10(3)/mc L 06/17/2024 12:37 AM [facility] Basophil % 0.3 % 06/17/2024 12:37 AM [facility] Baso Absolute <0.04 0.00 - 0.10 x10(3)/mc L 06/17/2024 12:37 AM [facility] Immature Gran % 0.6 % 12:37 AM [facility] Immature Gran Absolute 0.04 0.00 - 0.04 x10(3)/mc L 06/17/2024 12:37 AM [facility] Blood VENOUS BLOOD SPECIMEN / Unknown Venipuncture / Unknown 06/17/2024 12:22 AM EST 06/17/2024 12:28 AM EST Martinez Reynolds MD HEMATOLOGY ORDERABLE S [facility] [place] [address] * Phosphorus (06/17/2024 12:22 AM EST) Phosphorus 4.3 2.5 - 4.5 mg/dL 06/17/2024 12:58 AM EST [facility] Blood VENOUS BLOOD SPECIMEN / Unknown Venipuncture / Unknown 06/17/2024 12:22 AM EST 06/17/2024 12:28 AM EST Martinez Reynolds MD CHEMISTRY ORDERABLES Performing Organization Address City/[facility] [address]/ZIP Co de Phone Number [facility] [place] [address] * Magnesium (06/17/2024 12:22 AM EST) Magnesium 0.88 0.69 - 1.07 mMol/L 06/17/2024 12:58 AM EST [facility] Blood VENOUS BLOOD SPECIMEN / Unknown Venipuncture / Unknown 06/17/2024 12:22 AM EST 06/17/2024 12:28 AM EST Martinez Reynolds MD CHEMISTRY ORDERABLES Performing Organization Address City/[facility] [address]/ZIP Co de Phone Number [facility] [place] [address] * Basic Metabolic Panel (06/17/2024 12:22 AM EST) Glucose 99 65 - 199 mg/dL 06/17/2024 1:12 AM EST [facility] Comment:Glucose Concentratio n >=200 mg/dL plus symptoms is consistent with Diabetes Mellitus. Blood Urea Nitrogen 14 10 - 20 mg/dL 06/17/2024 1:12 AM EST [facility] Creatinine 0.90 0.80 - 1.50 mg/dL 06/17/2024 1:12 AM [facility] [facility] Sodium 140 135 - 145 mMol/L 06/17/2024 1:12 AM [facility] Potassium 4.1 3.5 - 5.0 mMol/L 06/17/2024 1:12 AM [facility] Chloride 105 98 - 107 mMol/L 06/17/2024 1:12 AM [facility] Carbon Dioxide 24 22 - 31 mMol/L 06/17/2024 1:12 AM [facility] Anion Gap 11 5 - 15 mMol/L 06/17/2024 1:12 AM [facility] Calcium 9.4 8.5 - 10.5 mg/dL 06/17/2024 1:12 AM [facility] Est Glomerular Filtration Rate - Male 115 mL/min/1. 73 m?? 06/17/2024 1:12 AM [facility] Comment: This patient's estimated GFR [...] AM EST Martinez Reynolds MD CHEMISTRY ORDERABLES [facility] [place] [address] * Sodium (06/16/2024 6:37 PM EST) Sodium 142 135 - 145 mMol/L 06/16/2024 6:55 PM [facility] Blood VENOUS BLOOD SPECIMEN / Unknown Venipuncture / Unknown 06/16/2024 6:37 PM EST 06/16/2024 6:42 PM EST Channing Ballesteros MD CHEMISTRY ORDERABLES Performing Organization Address [facility] [address]/ZIP Co de Phone Number [facility] [place] [address] * Sodium (06/16/2024 2:05 PM EST) Sodium 135 135 - 145 mMol/L 06/16/2024 2:54 PM EST [facility] Blood VENOUS BLOOD SPECIMEN / Unknown Venipuncture / Unknown 06/16/2024 2:05 PM EST 06/16/2024 2:23 PM EST Channing Ballesteros MD CHEMISTRY ORDERABLES Performing Organization Address [facility] [address]/ZIP Co de Phone Number [facility] [place] [address] * Sodium (06/16/2024 12:03 PM EST) Sodium 139 135 - 145 mMol/L 06/16/2024 1:02 PM EST [facility] Blood VENOUS BLOOD SPECIMEN / Unknown Venipuncture / Unknown 06/16/2024 12:03 PM EST 06/16/2024 12:06 PM EST Marline Calderon APRN CHEMISTRY ORDERABL ES Performing Organization Address City/[facility] [address]/ZIP Co de Phone Number [facility] [place] [address] * (ABNORMAL) Sodium (06/16/2024 6:00 AM EST) Sodium 131(L) 135 - 145 mMol/L 06/16/2024 6:26 AM EST [facility] Blood VENOUS BLOOD SPECIMEN / Unknown Venipuncture / Unknown 06/16/2024 6:00 AM EST 06/16/2024 6:03 AM EST Marline Calderon INSURANCE COLLECTOR CHEMISTRY ORDERABL ES [facility] [place] [address] * (ABNORMAL) CBC (with Diff) (06/16/2024 12:09 AM EST) White Blood Cell 7.71 4.00 - 9.50 x10(3)/mc L 06/16/2024 12:26 AM [facility] Red Blood Cell 4.69 4.58 - 5.54 x10(6)/mc L 06/16/2024 12:26 AM [facility] Hemoglobin 11.7(L) 13.7 - 16.5 g/dL 06/16/2024 12:26 AM [facility] Hematocrit 33.8(L) 40.5 - 48.5 % 06/16/2024 12:26 AM [facility] Mean Cell Volume 72.1(L) 82.9 - 93.1 fL 06/16/2024 12:26 AM [facility] Mean Cell Hemoglobin 24.9(L) 27.5 - 32.1 pg 06/16/2024 12:26 AM [facility] Mean Cell Hemoglobin Concentration 34.6 32.0 - 35.7 g/dL 06/16/2024 12:26 AM [facility] Platelet 241 145 - 357 x10(3)/mc L 06/16/2024 12:26 AM [facility] Mean Platelet Volume 9.3 7.6 - 12.9 fL 06/16/2024 12:26 AM [facility] RDW Standard Deviation 37.3 36.0 - 45.0 fL 06/16/2024 12:26 AM [facility] RDW coefficient of variation 14.5(H) 11.4 - 13.8 % 06/16/2024 12:26 AM [facility] NRBC% auto 0.0 % 06/16/2024 12:26 AM [facility] NRBC Absolute <0.01 <0.01 x10(3)/mc L 06/16/2024 12:26 AM [facility] Neutrophil % 64.4 % 06/16/2024 12:26 AM [facility] Neutrophil Absolute (ANC) - Automated 4.96 1.70 - 6.10 x10(3)/mc L 06/16/2024 12:26 AM [facility] Lymph % 23.7 % 06/16/2024 12:26 AM [facility] Lymph Absolute 1.83 0.90 - 3.20 x10(3)/mc L 06/16/2024 12:26 AM [facility] Monocyte % 9.7 % 06/16/2024 12:26 AM [facility] Monocyte Absolute 0.75 0.30 - 0.90 x10(3)/mc L 06/16/2024 12:26 AM [facility] Eos % 1.0 % 06/16/2024 12:26 AM [facility] Eos Absolute 0.08 0.00 - 0.40 x10(3)/mc L 06/16/2024 12:26 AM [facility] Basophil % 0.4 % 06/16/2024 12:26 AM [facility] Baso Absolute <0.04 0.00 - 0.10 x10(3)/mc L 06/16/2024 12:26 AM [facility] Immature Gran % 0.8 % 12:26 AM [facility] Immature Gran Absolute 0.06(H) 0.00 - 0.04 x10(3)/mc L 06/16/2024 12:26 AM [facility] Blood VENOUS BLOOD SPECIMEN / Unknown Venipuncture / Unknown 06/16/2024 12:09 AM EST 06/16/2024 12:21 AM EST Martinez Reynolds MD HEMATOLOGY ORDERABLE S [facility] [place] [address] * Phosphorus (06/16/2024 12:09 AM EST) Phosphorus 3.2 2.5 - 4.5 mg/dL 06/16/2024 12:50 AM EST [facility] Blood VENOUS BLOOD SPECIMEN / Unknown Venipuncture / Unknown 06/16/2024 12:09 AM EST 06/16/2024 12:21 AM EST Martinez Reynolds MD CHEMISTRY ORDERABLES Performing Organization Address City/[facility] [address]/ZIP Co de Phone Number [facility] [place] [address] * Magnesium (06/16/2024 12:09 AM EST) Magnesium 0.85 0.69 - 1.07 mMol/L 06/16/2024 12:50 AM EST [facility] Blood VENOUS BLOOD SPECIMEN / Unknown Venipuncture / Unknown 06/16/2024 12:09 AM EST 06/16/2024 12:21 AM EST Martinez Ryenolds MD CHEMISTRY ORDERABLES [facility] [place] [address] * (ABNORMAL) Basic Metabolic Panel (06/16/2024 12:09 AM EST) Glucose 92 65 - 199 mg/dL 06/16/2024 12:50 AM EST [facility] Comment:Glucose Concentratio n >=200 mg/dL plus symptoms is consistent with Diabetes Mellitus. Blood Urea Nitrogen 12 10 - 20 mg/dL 06/16/2024 12:50 AM EST [facility] Creatinine 0.92 0.80 - 1.50 mg/dL 06/16/2024 12:50 AM EST [facility] Sodium 131(L) 135 - 145 mMol/L 06/16/2024 12:50 AM [facility] Potassium 3.9 3.5 - 5.0 mMol/L 06/16/2024 12:50 AM [facility] Chloride 99 98 - 107 mMol/L 06/16/2024 12:50 AM [facility] Carbon Dioxide 22 22 - 31 mMol/L 06/16/2024 12:50 AM [facility] Anion Gap 10 5 - 15 mMol/L 06/16/2024 12:50 AM [facility] Calcium 8.3(L) 8.5 - 10.5 mg/dL 06/16/2024 12:50 AM [facility] Est Glomerular Filtration Rate - Male 112 mL/min/1. 73 m?? 06/16/2024 12:50 AM [facility] Comment: This patient's estimated GFR [...] AM EST Martinez Reynolds MD CHEMISTRY ORDERABLES [facility] [place] [address] * (ABNORMAL) Sodium (2024 5:58 PM EST) Sodium 129(L) 135 - 145 mMol/L 2024 6:37 PM [facility] Blood VENOUS BLOOD SPECIMEN / Unknown Venipuncture / Unknown 2024 5:58 PM EST 2024 6:05 PM EST Marline Calderon INSURANCE COLLECTOR CHEMISTRY ORDERABL ES [facility] [place] [address] * MRI Brain wwo Contrast (Generic) (2024 4:20 PM EST) WORKSTATION ID [id number] RAD Anatomical Region Laterality Modality Head Magnetic [...] have questions please contact the health care program director that requested your imaging first. ? Narrative [...] clip with its blades near the right MACHINE [employer]AT [employer]. 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 IMPRESSION Homogeneously enhancing 3.5 cm mass along [...] who have questions please contactthe health care program director that requested your imaging first. Electronically signed by: Raudel Heredia MD, [facility]([phone]), at 2024 4:46 PM Marline Calderon APRN IMG MRI ORDERABLES * (ABNORMAL) Sodium (2024 12:07 PM EST) Sodium 129(L) 135 - 145 mMol/L 2024 12:47 PM EST [facility] Blood VENOUS BLOOD SPECIMEN / Unknown Venipuncture / Unknown 2024 12:07 PM EST 2024 12:33 PM EST Marline Calderon APRN CHEMISTRY ORDERABL ES Performing Organization Address City/[facility] [address]/ZIP Co de Phone Number [facility] [place] [address] * (ABNORMAL) Sodium (2024 5:54 AM EST) Sodium 128(L) 135 - 145 mMol/L 2024 6:42 AM EST [facility] Blood VENOUS BLOOD SPECIMEN / Unknown Venipuncture / Unknown 2024 5:54 AM EST 2024 6:14 AM EST Marline Calderon INSURANCE COLLECTOR CHEMISTRY ORDERABL ES [facility] [place] [address] * (ABNORMAL) CBC (with Diff) (2024 12:06 AM EST) White Blood Cell 6.30 4.00 - 9.50 x10(3)/mc L 2024 12:17 AM EST [facility] Red Blood Cell 4.79 4.58 - 5.54 x10(6)/mc L 2024 12:17 AM EST [facility] Hemoglobin 11.9(L) 13.7 - 16.5 g/dL 2024 12:17 AM [facility] Hematocrit 34.2(L) 40.5 - 48.5 % 2024 12:17 AM [facility] Mean Cell Volume 71.4(L) 82.9 - 93.1 fL 2024 12:17 AM [facility] Mean Cell Hemoglobin 24.8(L) 27.5 - 32.1 pg 2024 12:17 AM [facility] Mean Cell Hemoglobin Concentration 34.8 32.0 - 35.7 g/dL 2024 12:17 AM [facility] Platelet 269 145 - 357 x10(3)/mc L 2024 12:17 AM [facility] Mean Platelet Volume 9.1 7.6 - 12.9 fL 2024 12:17 AM [facility] RDW Standard Deviation 35.5(L) 36.0 - 45.0 fL 2024 12:17 AM [facility] RDW coefficient of variation 13.9(H) 11.4 - 13.8 % 2024 12:17 AM [facility] NRBC% auto 0.0 % 2024 12:17 AM [facility] NRBC Absolute <0.01 <0.01 x10(3)/mc L 2024 12:17 AM [facility] Neutrophil % 57.9 % 2024 12:17 AM [facility] Neutrophil Absolute (ANC) - Automated 3.65 1.70 - 6.10 x10(3)/mc L 2024 12:17 AM [facility] Lymph % 30.3 % 2024 12:17 AM [facility] Lymph Absolute 1.91 0.90 - 3.20 x10(3)/mc L 2024 12:17 AM [facility] Monocyte % 9.7 % 2024 12:17 AM [facility] Monocyte Absolute 0.61 0.30 - 0.90 x10(3)/mc L 2024 12:17 AM [facility] Eos % 1.3 % 2024 12:17 AM [facility] Eos Absolute 0.08 0.00 - 0.40 x10(3)/mc L 2024 12:17 AM [facility] Basophil % 0.3 % 2024 12:17 AM [facility] Baso Absolute <0.04 0.00 - 0.10 x10(3)/mc L 2024 12:17 AM [facility] Immature Gran % 0.5 % 12:17 AM [facility] Immature Gran Absolute <0.04 0.00 - 0.04 x10(3)/mc L 2024 12:17 AM [facility] Blood VENOUS BLOOD SPECIMEN / Unknown Venipuncture / Unknown 2024 12:06 AM EST 2024 12:10 AM EST Martinez Reynolds MD HEMATOLOGY ORDERABLE S Performing Organization Address City/State/[facility] Co de Phone Number [facility] [place] [address] * Phosphorus (2024 12:06 AM EST) Phosphorus 2.8 2.5 - 4.5 mg/dL 2024 12:39 AM [facility] Blood VENOUS BLOOD SPECIMEN / Unknown Venipuncture / Unknown 2024 12:06 AM EST 2024 12:10 AM EST Martinez Reynolds MD CHEMISTRY ORDERABLES [facility] [place] [address] * Magnesium (2024 12:06 AM EST) Pathologist [facility] [place] Magnesium 0.79 0.69 - 1.07 mMol/L 2024 12:39 AM [facility] Blood VENOUS BLOOD SPECIMEN / Unknown Venipuncture / Unknown 2024 12:06 AM EST 2024 12:10 AM EST Martinez Reynolds MD CHEMISTRY ORDERABLES Performing Organization Address City/[facility] [address]/ZIP Co de Phone Number [facility] [place] [address] * (ABNORMAL) Basic Metabolic Panel (2024 12:06 AM EST) Pathologist [facility] [place] Glucose 103 65 - 199 mg/dL 2024 12:39 AM [facility] Comment:Glucose Concentratio n >=200 mg/dL plus symptoms is consistent with Diabetes Mellitus. Blood Urea Nitrogen 14 10 - 20 mg/dL 2024 12:39 AM [facility] Creatinine 0.74(L) 0.80 - 1.50 mg/dL 2024 12:39 AM [facility] Sodium 128(L) 135 - 145 mMol/L 2024 12:39 AM [facility] Potassium 4.1 3.5 - 5.0 mMol/L 2024 12:39 AM [facility] Chloride 97(L) 98 - 107 mMol/L 2024 12:39 AM [facility] Carbon Dioxide 19(L) 22 - 31 mMol/L 2024 12:39 AM [facility] Anion Gap 12 5 - 15 mMol/L 2024 12:39 AM [facility] Calcium 8.1(L) 8.5 - 10.5 mg/dL 2024 12:39 AM EST [facility] Est Glomerular Filtration Rate - Male 122 mL/min/1. 73 m?? 2024 12:39 AM EST [facility] Comment: This patient's estimated [...] AM EST Martinez Reynolds MD CHEMISTRY ORDERABLES [facility] [place] [address] * (ABNORMAL) Sodium (06/14/2024 6:49 PM EST) Sodium 126(L) 135 - 145 mMol/L 06/14/2024 7:17 PM EST [facility] Blood VENOUS BLOOD SPECIMEN / Unknown Venipuncture / Unknown 06/14/2024 6:49 PM EST 06/14/2024 6:53 PM EST Marline Calderon APRN CHEMISTRY ORDERABL ES [facility] [place] [address] * EEG Continuous Monitoring Inpatient (06/14/2024 3:33 [...] - 145 mMol/L 06/14/2024 3:18 PM EST [facility] Blood VENOUS BLOOD SPECIMEN / Unknown Venipuncture / Unknown 06/14/2024 2:15 PM EST 06/14/2024 2:36 PM EST Mariola Alfred MD CHEMISTRY ORDERABLES Performing Organization Address City/[facility] [address]/ZIP Co de Phone Number [facility] [place] [address] * (ABNORMAL) Sodium (06/14/2024 12:12 PM EST) Sodium 125(L) 135 - 145 mMol/L 06/14/2024 12:48 PM EST [facility] Blood VENOUS BLOOD SPECIMEN / Unknown Venipuncture / Unknown 06/14/2024 12:12 PM EST 06/14/2024 12:20 PM EST Mariola Alfred MD CHEMISTRY ORDERABLES [facility] [place] [address] * (ABNORMAL) Sodium (06/14/2024 10:35 AM EST) Sodium 125(L) 135 - 145 mMol/L 06/14/2024 11:21 AM EST [facility] Blood VENOUS BLOOD SPECIMEN / Unknown Venipuncture / Unknown 06/14/2024 10:35 AM EST 06/14/2024 10:44 AM EST Mariola Alfred MD CHEMISTRY ORDERABLES [facility] [place] [address] * Request For 2nd Read CT Head (06/14/2024 9:46 AM EST) WORKSTATION ID [id number] RAD Anatomical Region Laterality Modality Head SO [...] have questions please contact the health care program director that requested your imaging first. ? Narrative 06/14/2024 10:41 AM EST EXAMINATION: REQUEST FOR 2ND READ CT HEAD CLINICAL HISTORY: New seizure with known mass, ?enlargening. Presenting with seizure; Sending Institution [facility]; Date of exam [id number]; I believe a reinterpretation of this exam may alter care of Patient. Yes TECHNIQUE: Reinterpretation of noncontrast CT head performed at [facility] 06/13/2024 at 2143 hours COMPARISON: Noncontrast [...] known mass, ?enlargening. Presentingwith seizure; Sending Institution [facility]; Date of exam [id number]; I believe [...] who have questions please contactthe health care program director that requested your imaging first. Electronically signed by: Galen Balderas [facility]([phone]), at 06/14/2024 10:41 AM Lexie Osullivan INSURANCE COLLECTOR IMG OUTSIDE INTERP RETATION ORDERABLES * (ABNORMAL) Urinalysis Microscopic (06/14/2024 8:06 AM EST) Bacteria, Urine None None /HPF 12:26 PM [facility] Amorphous Crystals, Urine Many(A) None /HPF 06/14/2024 12:26 PM [facility] RBC, Urine 1 0 - 3 /HPF 06/14/2024 12:26 PM [facility] WBC, Urine 1 0 - 3 /HPF 06/14/2024 12:26 PM [facility] Squamous Epithelial Cells, Urine 0 0 - 5 /HPF 06/14/2024 12:26 PM [facility] Hyaline Casts, Urine 0 0 - 2 /LPF 06/14/2024 12:26 PM [facility] Urine URINE SPECIMEN / Unknown Non Blood Collection / Unknown 06/14/2024 8:06 AM EST 06/14/2024 8:52 AM EST Marline Calderon INSURANCE COLLECTOR URINE ORDERABLES Performing Organization Address City/[facility] [address]/ZIP Co de Phone Number [facility] [place] [address] * Urinalysis Microscopic Exam (06/14/2024 8:06 AM EST) Urine URINE SPECIMEN / Unknown Non Blood Collection / Unknown 06/14/2024 8:06 AM EST 06/14/2024 8:52 AM EST Marline Calderon INSURANCE COLLECTOR URINE ORDERABLES [facility] [place] [address] * (ABNORMAL) Urinalysis Dipstick (06/14/2024 8:06 AM [...] [facility] Specific [place] Urine Automated 1.016 1.005 - 1.030 06/14/2024 [...] AM EST Marline Calderon APRN URINE ORDERABLES [facility] [place] [address] * (ABNORMAL) Sodium (06/14/2024 8:06 AM EST) Sodium 124(L) 135 - 145 mMol/L 06/14/2024 9:59 AM EST [facility] Blood VENOUS BLOOD SPECIMEN / Unknown Venipuncture / Unknown 06/14/2024 8:06 AM EST 06/14/2024 8:53 AM EST Mariola Alfred MD CHEMISTRY ORDERABLES [facility] [place] [address] * Electrolytes, urine, random (06/14/2024 8:06 AM EST) Sodium, Urine 76 mMol/L 06/14/2024 10:44 AM EST [facility] Potassium, Urine 41 mMol/L 06/14/2024 10:44 AM EST [facility] Chloride, Urine 52 mMol/L 06/14/2024 10:44 AM EST [facility] Urine URINE SPECIMEN / Unknown Non Blood Collection / Unknown 06/14/2024 8:06 AM EST 06/14/2024 8:52 AM EST Mariola Alfred MD URINE ORDERABLES Performing Organization Address City/[facility] [address]/ZIP Co de Phone Number [facility] [place] [address] * Osmolality, urine, random (06/14/2024 8:06 AM EST) Osmolality, Urine 496 50 - 1,200 mOsm/kg 06/14/2024 10:55 AM EST [facility] Urine URINE SPECIMEN / Unknown Non Blood Collection / Unknown 06/14/2024 8:06 AM EST 06/14/2024 8:52 AM EST Mariola Alfred MD URINE ORDERABLES [facility] [place] [address] * (ABNORMAL) CBC (with Diff) (06/14/2024 5:27 AM EST) [facility] Signature White Blood Cell 8.68 4.00 - 9.50 x10(3)/mc L 06/14/2024 5:54 AM [facility] Red Blood Cell 5.08 4.58 - 5.54 x10(6)/mc L 06/14/2024 5:54 AM [facility] Hemoglobin 12.5(L) 13.7 - 16.5 g/dL 06/14/2024 5:54 AM [facility] Hematocrit 35.8(L) 40.5 - 48.5 % 06/14/2024 5:54 AM [facility] Mean Cell Volume 70.5(L) 82.9 - 93.1 fL 06/14/2024 5:54 AM [facility] Mean Cell Hemoglobin 24.6(L) 27.5 - 32.1 pg 06/14/2024 5:54 AM [facility] Mean Cell Hemoglobin Concentration 34.9 32.0 - 35.7 g/dL 06/14/2024 5:54 AM [facility] Platelet 284 145 - 357 x10(3)/mc L 06/14/2024 5:54 AM [facility] Mean Platelet Volume 9.2 7.6 - 12.9 fL 06/14/2024 5:54 AM [facility] RDW Standard Deviation 34.3(L) 36.0 - 45.0 fL 06/14/2024 5:54 AM [facility] RDW coefficient of variation 13.6 11.4 - 13.8 % 06/14/2024 5:54 AM [facility] NRBC% auto 0.0 % 06/14/2024 5:54 AM [facility] NRBC Absolute <0.01 <0.01 x10(3)/mc L 06/14/2024 5:54 AM [facility] Neutrophil % 81.7 % 06/14/2024 5:54 AM [facility] Neutrophil Absolute (ANC) - Automated 7.09(H) 1.70 - 6.10 x10(3)/mc L 06/14/2024 5:54 AM [facility] Lymph % 13.0 % 06/14/2024 5:54 AM [facility] Lymph Absolute 1.13 0.90 - 3.20 x10(3)/mc L 06/14/2024 5:54 AM [facility] Monocyte % 4.3 % 06/14/2024 5:54 AM [facility] Monocyte Absolute 0.37 0.30 - 0.90 x10(3)/mc L 06/14/2024 5:54 AM [facility] Eos % 0.2 % 06/14/2024 5:54 AM [facility] Eos Absolute <0.04 0.00 - 0.40 x10(3)/mc L 06/14/2024 5:54 AM [facility] Basophil % 0.2 % 06/14/2024 5:54 AM [facility] Baso Absolute <0.04 0.00 - 0.10 x10(3)/mc L 06/14/2024 5:54 AM R [facility] Immature Gran % 0.6 % 5:54 AM R [facility] Immature Gran Absolute 0.05(H) 0.00 - 0.04 x10(3)/mc L 06/14/2024 5:54 AM R [facility] Blood VENOUS BLOOD SPECIMEN / Unknown Venipuncture / Unknown 06/14/2024 5:27 AM EST 06/14/2024 5:45 AM EST Martinez Reynolds MD HEMATOLOGY ORDERABLE S [facility] [place] [address] * Phosphorus (06/14/2024 5:27 AM EST) Pathologist [facility] [place] Phosphorus 2.8 2.5 - 4.5 mg/dL 06/14/2024 8:36 AM R [facility] Blood VENOUS BLOOD SPECIMEN / Unknown Venipuncture / Unknown 06/14/2024 5:27 AM EST 06/14/2024 5:45 AM EST Martinez Reynolds MD CHEMISTRY ORDERABLES Performing Organization Address City/[facility] [address]/ZIP Co de Phone Number [facility] [place] [address] * Magnesium (06/14/2024 5:27 AM EST) [facility] Magnesium 0.83 0.69 - 1.07 mMol/L 06/14/2024 6:22 AM R [facility] Blood VENOUS BLOOD SPECIMEN / Unknown Venipuncture / Unknown 06/14/2024 5:27 AM EST 06/14/2024 5:45 AM EST Martinez Reynolds MD CHEMISTRY ORDERABLES Performing Organization Address City/[facility] [address]/ZIP Co de Phone Number [facility] [place] [address] * (ABNORMAL) Basic Metabolic Panel (06/14/2024 5:27 AM EST) [facility] Glucose 109 65 - 199 mg/dL 06/14/2024 6:22 AM R [facility] [facility] Comment:Glucose Concentratio n >=200 mg/dL plus symptoms is consistent with Diabetes Mellitus. Blood Urea Nitrogen 14 10 - 20 mg/dL 06/14/2024 6:22 AM [facility] Creatinine 0.76(L) 0.80 - 1.50 mg/dL 06/14/2024 6:22 AM [facility] Sodium 124(L) 135 - 145 mMol/L 06/14/2024 6:22 AM [facility] Potassium 4.0 3.5 - 5.0 mMol/L 06/14/2024 6:22 AM EST [facility] Chloride 93(L) 98 - 107 mMol/L 06/14/2024 6:22 AM EST [facility] Carbon Dioxide 19(L) 22 - 31 mMol/L 06/14/2024 6:22 AM [facility] Anion Gap 12 5 - 15 mMol/L 06/14/2024 6:22 AM [facility] Calcium 7.9(L) 8.5 - 10.5 mg/dL 06/14/2024 6:22 AM EST [facility] Est Glomerular Filtration Rate - Male 122 mL/min/1. 73 m?? 06/14/2024 6:22 AM [facility] Comment: This patient's estimated GFR [...] AM EST Martinez Reynolds MD CHEMISTRY ORDERABLES [facility] [place] [address] * XR Chest One View (06/14/2024 4:02 AM EST) WORKSTATION ID [id number] RAD Anatomical Region Laterality Modality Chest N/A [...] have questions please contact the health care program director that requested your imaging first. ? Electronically signed by: Beverley Valencia MD, [facility] ([phone]), at 06/14/2024 4:32 AM Narrative 06/14/2024 4:32 [...] who have questions please contactthe health care program director that requested your imaging first. Electronically signed by: Beverley Valencia MD, [facility]([phone]), at 06/14/2024 4:32 AM Mariola Alfred MD IMG DX ORDERABLES * (ABNORMAL) Sodium (06/14/2024 3:32 AM EST) Sodium 122(L) 135 - 145 mMol/L 06/14/2024 4:02 AM [facility] Blood VENOUS BLOOD SPECIMEN / Unknown Venipuncture / Unknown 06/14/2024 3:32 AM EST 06/14/2024 3:37 AM EST Mariola Alfred MD CHEMISTRY ORDERABLES [facility] [place] [id number] * (ABNORMAL) Blood Gas, Venous POC (06/14/2024 [...] MD POINT OF CARE TEST O RDERABLES [facility] [place] [address] * POC, GLUCOSE (06/14/2024 1:06 AM EST) Glucometer, POC 113 65 - 199 mg/dL 06/14/2024 1:06 AM [facility] Comment:Supplemental ranges: <140 mg/dL before meals <180 mg/dL all other times of the day. Blood CAPILLARY BLOOD / Unknown 06/14/2024 1:06 AM EST 06/14/2024 1:06 AM EST Mariola Alfred MD POINT OF CARE TEST O RDERABLES [facility] [place] [address] * EKG 12 Lead (06/14/2024 1:04 AM EST) Ventricular rate 85 BPM MUSE SYSTEM Atrial Rate 85 BPM MUSE SYSTEM P-R Interval 182 ms MUSE SYSTEM QRS Duration 94 ms MUSE SYSTEM Q-T Interval 388 ms MUSE SYSTEM QTC Calculated (Bezet) 461 ms MUSE SYSTEM Calculated P [place] 35 degrees MUSE SYSTEM Calculated R [place] 57 degrees MUSE SYSTEM Calculated T [place] 48 degrees MUSE SYSTEM INTERPRETATION Normal sinus rhythm Normal ECG When compared with ECG of 01-MAR-2018 09:20, Nonspecific T wave abnormality no longer evident in Inferior leads T wave inversion no longer evident in Lateral leads I personally reviewed the tracing and edited the fellows interpretation Confirmed by fellow Rosalie Obrien ([id number]) on 2024 9:31:30 PM Confirmed by Hannah Marin MD ([id number]) on 06/17/2024 11:43:44 AM MUSE SYSTEM 06/14/2024 1:04 AM EST 06/17/2024 11:43 AM EST Mariola Alfred MD ECG ORDERABLES Performing Organization Address [facility] [address]/ZIP Co de Phone Number MUSE SYSTEM * Scan, Peripheral Blood (06/14/2024 1:03 AM EST) RBC Morphology Abnormal 06/14/2024 2:00 AM EST [facility] Platelet Estimate Normal Normal 06/14/2024 2:00 AM EST [facility] Microcyte 1-5 /HPF 06/14/2024 2:00 AM EST [facility] Tear Cell 1-5 /HPF 06/14/2024 2:00 AM EST [facility] Blood VENOUS BLOOD SPECIMEN / Unknown Venipuncture / Unknown 06/14/2024 1:03 AM EST 06/14/2024 1:08 AM EST Mariola Alfred MD HEMATOLOGY ORDERABLE S [facility] [place] [address] * (ABNORMAL) CBC (with Diff) (06/14/2024 1:03 AM [facility]) White Blood Cell 10.38(H) 4.00 - 9.50 x10(3)/mc L 06/14/2024 2:00 AM [facility] Red Blood Cell 5.05 4.58 - 5.54 x10(6)/mc L 06/14/2024 2:00 AM [facility] Hemoglobin 12.2(L) 13.7 - 16.5 g/dL 06/14/2024 2:00 AM [facility] Hematocrit 35.5(L) 40.5 - 48.5 % 06/14/2024 2:00 AM [facility] Mean Cell Volume 70.3(L) 82.9 - 93.1 fL 06/14/2024 2:00 AM [facility] Mean Cell Hemoglobin 24.2(L) 27.5 - 32.1 pg 06/14/2024 2:00 AM [facility] Mean Cell Hemoglobin Concentration 34.4 32.0 - 35.7 g/dL 06/14/2024 2:00 AM [facility] Platelet 276 145 - 357 x10(3)/mc L 06/14/2024 2:00 AM [facility] Mean Platelet Volume 9.0 7.6 - 12.9 fL 06/14/2024 2:00 AM [facility] RDW Standard Deviation 33.6(L) 36.0 - 45.0 fL 06/14/2024 2:00 AM [facility] RDW coefficient of variation 13.4 11.4 - 13.8 % 06/14/2024 2:00 AM [facility] NRBC% auto 0.0 % 06/14/2024 2:00 AM [facility] NRBC Absolute <0.01 <0.01 x10(3)/mc L 06/14/2024 2:00 AM [facility] Neutrophil % 85.7 % 06/14/2024 2:00 AM [facility] Neutrophil Absolute (ANC) - Automated 8.90(H) 1.70 - 6.10 x10(3)/mc L 06/14/2024 2:00 AM [facility] Lymph % 8.4 % 06/14/2024 2:00 AM [facility] Lymph Absolute 0.87(L) 0.90 - 3.20 x10(3)/mc L 06/14/2024 2:00 AM [facility] Monocyte % 4.4 % 06/14/2024 2:00 AM [facility] Monocyte Absolute 0.46 0.30 - 0.90 x10(3)/mc L 06/14/2024 2:00 AM [facility] Eos % 0.5 % 06/14/2024 2:00 AM [facility] Eos Absolute 0.05 0.00 - 0.40 x10(3)/mc L 06/14/2024 2:00 AM [facility] Basophil % 0.2 % 06/14/2024 2:00 AM [facility] Baso Absolute <0.04 0.00 - 0.10 x10(3)/mc L 06/14/2024 2:00 AM [facility] Immature Gran % 0.8 % 2:00 AM [facility] Immature Gran Absolute 0.08(H) 0.00 - 0.04 x10(3)/mc L 06/14/2024 2:00 AM [facility] Blood VENOUS BLOOD SPECIMEN / Unknown Venipuncture / Unknown 06/14/2024 1:03 AM EST 06/14/2024 1:08 AM EST Martinez Reynolds MD HEMATOLOGY ORDERABLE S [facility] [place] [address] * (ABNORMAL) Phosphorus (06/14/2024 1:03 AM EST) Phosphorus 1.5(L) 2.5 - 4.5 mg/dL 06/14/2024 1:46 AM EST [facility] Blood VENOUS BLOOD SPECIMEN / Unknown Venipuncture / Unknown 06/14/2024 1:03 AM EST 06/14/2024 1:08 AM EST Martinez Reynolds MD CHEMISTRY ORDERABLES Performing Organization Address [facility] [address]/ZIP Co de Phone Number [facility] [place] [address] * Magnesium (06/14/2024 1:03 AM EST) Magnesium 0.90 0.69 - 1.07 mMol/L 06/14/2024 1:46 AM EST [facility] Blood VENOUS BLOOD SPECIMEN / Unknown Venipuncture / Unknown 06/14/2024 1:03 AM EST 06/14/2024 1:08 AM EST Martinez Reynolds MD CHEMISTRY ORDERABLES Performing Organization Address City/[facility] [address]/ZIP Co de Phone Number [facility] [place] [address] * (ABNORMAL) Basic Metabolic Panel (06/14/2024 1:03 AM EST) Glucose 95 65 - 199 mg/dL 06/14/2024 1:49 AM EST [facility] Comment:Glucose Concentratio n >=200 mg/dL plus symptoms is consistent with Diabetes Mellitus. Blood Urea Nitrogen 14 10 - 20 mg/dL 06/14/2024 1:49 AM EST [facility] Creatinine 0.80 0.80 - 1.50 mg/dL 06/14/2024 1:49 AM EST [facility] Sodium 123(L) 135 - 145 mMol/L 06/14/2024 1:49 AM EST [facility] Potassium 3.7 3.5 - 5.0 mMol/L 06/14/2024 1:49 AM [facility] Chloride 91(L) 98 - 107 mMol/L 06/14/2024 1:49 AM [facility] Carbon Dioxide 19(L) 22 - 31 mMol/L 06/14/2024 1:49 AM [facility] Anion Gap 13 5 - 15 mMol/L 06/14/2024 1:49 AM [facility] Calcium 8.1(L) 8.5 - 10.5 mg/dL 06/14/2024 1:49 AM [facility] Est Glomerular Filtration Rate - Male 120 mL/min/1. 73 m?? 06/14/2024 1:49 AM [facility] Comment: This patient's estimated GFR [...] AM EST Martinez Reynolds MD CHEMISTRY ORDERABLES [facility] [place] [address] * (ABNORMAL) Osmolality (06/14/2024 1:03 AM EST) Osmolality 259(L) 275 - 295 mOsm/kg 06/14/2024 1:40 AM [facility] Blood VENOUS BLOOD SPECIMEN / Unknown Venipuncture / Unknown 06/14/2024 1:03 AM EST 06/14/2024 1:08 AM EST Mariola Alfred MD CHEMISTRY ORDERABLES [facility] [place] [address] * T3 Total (06/14/2024 1:03 AM EST) Pathologist [facility] T3 Total 87 80 - 200 ng/dL 06/14/2024 1:46 AM EST [facility] Blood VENOUS BLOOD SPECIMEN / Unknown Venipuncture / Unknown 06/14/2024 1:03 AM EST 06/14/2024 1:08 AM EST Mariola Alfred MD CHEMISTRY ORDERABLES Performing Organization Address City/[facility] [address]/ZIP Co de Phone Number [facility] [place] [address] * T4, free (06/14/2024 1:03 AM EST) Pathologist [facility] Free T4 1.37 0.93 - 1.70 ng/dL 06/14/2024 1:46 AM EST [facility] Blood VENOUS BLOOD SPECIMEN / Unknown Venipuncture / Unknown 06/14/2024 1:03 AM EST 06/14/2024 1:08 AM EST Mariola Alfred MD CHEMISTRY ORDERABLES Performing Organization Address City/[facility] [address]/ZIP Co de Phone Number [facility] [place] [address] * Zonisamide level (06/14/2024 1:03 AM EST) [facility] Zonisamide Lvl November 17 10 - 40 mcg/mL 06/16/2024 9:22 PM EST [facility] [place] Comment: ADDITIONAL INFORMATION This test was developed and its performance characteristics determined by [facility] in a manner consistent with CLIA requirements. This test has not been cleared or approved by the U.S. Food and Drug Administration. Blood VENOUS BLOOD SPECIMEN / Unknown Venipuncture / Unknown 06/14/2024 1:03 AM EST 06/14/2024 1:08 AM EST Narrative [facility] [place] - 06/16/2024 9:22 PM EST Test Performed by: [facility] [address] [place] [address] Dry Cleaning Checker: Xavier Velásquez Ph.D.; CLIA# [id number] Mariola Alfred MD LAB SEND OUT ORDERAB LES [facility] [place] [id number] [place] [address], [facility] documented in this encounter Visit Diagnoses [...] restart at 50% of previous rate. Call housekeeping worker if goal not achieved at maximum [...] Provider: Bell Amezcua RN)2013 (Given - Provider: Eirk Dumont RN) 0904 (Given - Provider: Bell [...] Vomiting documented in this encounter Care Teams Practical Nursing Faculty Relationship Specialty Start Date End Date Jimbo [place] [address] PCP - General Internal Medicine 06/18/24 documented as of this encounter
--- OUTSIDE RECORDS SUMMARY | 2024-08-06 01:11 | XMS_ITS | Encounter Summary ---
[place] [address] Care Team Providers Care Garbage Pick Up Worker Name Role Phone Jimbo More Primary Care Provider + Reason for Referral * Diagnostic Test (Routine) - Authorized Specialty Diagnoses / Procedures Referred By Duyen bui Referred To Contact Radiology Diagnoses Schwannoma Procedures MRI Brain wwo Contrast (Generic) Eron Barriga MD [facility] [place] [address] [place] [address] Referral ID Status Reason Start Date Expiration Date Visits Requested Visits Authorized [id number] Authorized Specialty Service Requested 07/20/2024 01/17/2026 1 1 Encounter Details Date Type Department Care Team (Late st Contact Info) Description 07/20/2024 1:30 PM EST Office [place] [address] Eron Barriga MD [facility] [place] [address] Schwannoma Social History Tobacco Use Types Packs/Day Years Used Date Smoking Tobacco: Never Smokeless Tobacco: Never Alcohol Use Standard Drinks/Week Comments No 0 (1 standard drink = 0.6 oz pur e alcohol) [facility] Utilities Answer Date Recorded In [...] aneurysm clip deep to this mass near INORGANIC CHEMISTRY TEACHER. Exam. Pt minimally interactive. No obvious EOM [...] site documented in this encounter Care Teams Garbage Pick Up Worker Relationship Specialty Start Date End Date Jimbo More PA [address] [place] [address] PCP - General Internal Medicine 06/18/24 documented as of this encounter
--- OUTSIDE RECORDS SUMMARY | 2024-08-06 01:11 | XMS_ITS | Encounter Summary ---
Author Organization [facility] Address [facility] [place] [address] Care Team Providers Care Ion Implant Machine Operator Name Role Phone Jimbo More [...] Jimbo More PA [address] [place] [address] [facility] Dermatology [address] [place] [address] Referral ID Status Reason Start Date Expiration Date Visits Requested Visits Authorized [id number] Authorized Consult, Test & Treat PCP Updated and/or Approved 07/22/2024 07/22/2025 6 6 Encounter Details Date Type Department Care Team (Late st Contact Info) Description 07/28/2024 Transcribe Orders eDH Incoming Referrals [phone] Jimbo More PA [address] [place] [address] Other injury of unspecified body region, initial encounter Social History Tobacco Use Types Packs/Day Years Used Date Smoking Tobacco: Never Smokeless Tobacco: Never Alcohol Use Standard Drinks/Week Comments No 0 (1 standard drink = 0.6 oz pur e alcohol) [facility] Utilities Answer Date Recorded In the past [...] were you homeless or living in a retirement (including now)? No 2024 IPV Inpatient Questions [...] encounter documented in this encounter Care Teams Ion Implant Machine Operator Relationship Specialty Start Date End Date Jimbo More PA [facility] [place] [address] PCP - General Internal Medicine 06/18/24 documented as of this encounter
--- OUTSIDE RECORDS SUMMARY | 2024-08-06 01:12 | XMS_ITS | Encounter Summary ---
Author Organization [facility] Address [facility] [place] [address] Care Team Providers Care Hospital Laboratory Technician Name Role Phone Ren Vaz MD Primary Care Provider [phone] Reason for Visit * Consultation (Routine) - Closed Specialty Diagnoses / Procedures Referred By Duyen bui Referred To Contact Maxillofacial Surgery Diagnoses Extraction of tooth needed Marques Hu, DMD [address] [place] [address] Joyce Kelly PA [facility] [place] [address] Referral ID Status Reason Start Date Expiration Date V isits Requested Visits Authorized [id number] Closed Consult, Test & Treat 08/17/2021 08/17/2022 1 1 Encounter Details Date Type Department Care Team (Late st Contact Info) Description 11/01/2021 11:00 AM EDT Office Visit [place] [address] Joyce Kelly PA Dental caries Social History [...] Referral to Maxillofacial Surgery To: JOYCE KELLY [phone] Specialty: My question or request is: evaluate patient for hospitalized dental care for special needs adult ext [phone] ? Referral Information Reference# [id number] Referral type: Consultation # Visits requested: 1 [...] notations from today's history: ?? Presents with ambulatory care coordinator, Carm[place], today ?? The patient's guardian is his sister, Bettina, he reportedly resides at [facility] ?? Per chart review has [...] of the anterior maxillary teeth. Per the family service caseworker this was mainly in the setting of concern that the teeth may be fragile and will require extraction in the future. They would appreciate a second opinion as tothe anterior maxillary teeth ??? It is somewhat unclear as to the dentist's recommendations in regards to these teeth ??? Reportedly they are able to perform oral care at the care home with the patient on a daily basis [...] caries of #7,9,10,11 in patient residing in care home setting with complex medical history as described above Recommendations/plan: Clinical scenario was discussed with Dr. Luke. Discussed with the patient and health and social care teacher thatultimately our recommendations would typically be to defer to the dentist's evaluation and recommended treatment plan, and that we are not able to offer restorative measures in our practice nor distinguish whether this would be the most appropriate course. We were able to contact her dentist's office and it does seem they had proposed gnosticist of teeth #7,9,10,11,31. As above would ultimately [...] plan. Additional questions were addressed and the health and social care teacher appeared satisfied with the above discussion. We appreciate the opportunity to be involved in Mr. Burgos's care. NAKIA Mims-C - Oral-Maxillofacial Surgery 11/02/2021 10:01 AM This note may have incorporated [id number] technology and though reviewed typographical or syntax errors may remain. documented in this encounter Plan of Treatment Not on file documented as of this encounter Visit Diagnoses Diagnosis Dental caries Unspecified dental caries documented in this encounter Care Teams Hospital Laboratory Technician Relationship Specialty Start Date End Date Ren Vaz MD PCP - General Family Medicine 06/02/20 06/17/24 documented as of this encounter
--- OUTSIDE RECORDS SUMMARY | 2024-08-06 01:12 | XMS_ITS | Encounter Summary ---
Author Organization [facility] Address [facility] [place] [address] Care Team Providers Care Office Services Coordinator Name Role Phone Jimbo More Primary Care Provider + Encounter Details Date Type Department Care Team (Late st Contact Info) Description 06/14/2024 9:50 AM EST Ancillary Procedure Radiology Library [place] [facility] [place] [id number] Social History Tobacco Use Types Packs/Day Years [...] any time in the past 12 m [facility], were you homeless or living in a chcf (including now)? No 2024 IPV Inpatient Questions [...] Head (06/14/2024 9:46 AM EST) WORKSTATION ID [id number] RAD Anatomical Region Laterality Modality Head SO [...] who have questions please contact the health foster care worker that requested your imaging first. ? Narrative 06/14/2024 10:41 AM EST EXAMINATION: REQUEST FOR 2ND READ CT HEAD CLINICAL HISTORY: New seizure with known mass, ?enlargening. Presenting with seizure; Sending Institution [facility]; Date of exam [id number]; I believe a [...] mass, ?enlargening. Presentingwith seizure; Sending Institution [facility]; Date of exam 20240613; I believe a [...] patients who have questions please contactthe health foster care worker that requested your imaging first. Electronically signed by: Galen Balderas [facility]([phone]), at 06/14/2024 10:41 AM Lexie Osullivan MACHINE CRATER IMG OUTSIDE INTERP RETATION ORDERABLES documented in this encounter Visit Diagnoses Not on filedocumented in this encounter Care Teams Office Services Coordinator Relationship Specialty Start Date End Date [place] [address] PCP - General Internal Medicine 06/18/24 documented as of this encounter
--- OUTSIDE RECORDS SUMMARY | 2024-08-06 01:12 | XMS_ITS | Encounter Summary ---
[place] [address] Care Team Providers Care Windows Infrastructure Engineer Name Role Phone Ren Vaz MD Primary Care Provider [phone] Reason for Visit * Auth/Cert (Routine) Specialty Diagnoses / Procedures Referred By Duyen bui Referred To Contact Diagnoses Hyponatremia hyponatremia Procedures ER Mariola Crisostomo MD [facility] [place] [address] [facility] Referral ID Status Reason Start Date Expiration Date Visits Re quested Visits Authorized [id number] 1 1 Encounter Details Date Type Department Care Team (Late st Contact Info) Description 2024 2:56 [place] [address] Akin Mcneill MD [facility] [place] [address] Anesthesia Record Procedure Summary Procedure Name Responsible [...] Recorded In the past 12 months has [employer], gas, oil, or water [employer] threatened to shut off services in your [...] any time in the past 12 m [facility], were you homeless or living [...] Procedure Summary Date: 06/15/24 Room / Location: [facility] / [facility] Anesthesia Start: 1456 Anesthesia Stop: 1626 Procedure: [...] All Anesthesia Providers: Anesthesiologist: Akin Mcneill MD CRM SYSTEM ADMINISTRATOR: Real Adams CRNA Vitals Value Taken Time [...] Surgical History: Procedure Laterality Date PRO 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 Plan discussed with CRM SYSTEM ADMINISTRATOR. Anesthesia Screening documented in this encounter Plan [...] EST documented in this encounter Care Teams Windows Infrastructure Engineer Relationship Specialty Start Date End Date Ren Vaz MD PCP - General Family Medicine 06/02/20 06/17/24 documented as of this encounter
--- OUTSIDE RECORDS SUMMARY | 2024-08-06 01:12 | XMS_ITS | Encounter Summary ---
[place] [address] Care Team Providers Care Printer Operator Name Role Phone Ren Vaz MD Primary Care Provider [phone] Encounter Details Date Type Department Care Team (Late st Contact Info) Description 08/16/2021 Transcribe Orders Maxill[place] [address] Gabriela Sandra Social History Tobacco Use Types [...] on filedocumented in this encounter Care Teams Printer Operator Relationship Specialty Start Date End Date Ren Vaz MD PCP - General Family Medicine 06/02/20 06/17/24 documented as of this encounter
--- OUTSIDE RECORDS SUMMARY | 2024-08-06 01:12 | XMS_ITS | Encounter Summary ---
Author Organization [facility]ly [facility] [place] [address] Care Team Providers Care Copyist Name Role Phone Ren Vaz MD Primary Care Provider [phone] Encounter Details Date Type Department Care Team (Late st Contact Info) Description 06/13/2024 Ancillary Procedure Radiology Library at [facility], [place] [id number] Ren Vaz MD [address] [place] [address] [address] [place], [place] [id number] Social History Tobacco Use Types Packs/Day Years Used Date Smoking Tobacco: Never Smokeless Tobacco: Never Alcohol Use Standard Drinks/Week Comments No 0 (1 standard drink = 0.6 oz pur e alcohol) [facility] Inpatient Questions Answer Date Recorded Prevent [...] MD IM FILM LIBRARY ORD ERABLES [place] documented in this encounter Visit Diagnoses Not on filedocumented in this encounter Care Teams Copyist Relationship Specialty Start Date End Date Ren Vaz MD PCP - General Family Medicine 06/02/20 06/17/24 documented as of this encounter
--- OUTSIDE RECORDS SUMMARY | 2024-08-06 01:12 | XMS_ITS | Encounter Summary ---
[place] [address] Care Team Providers Care Mesh Man Name Role Phone Ren Vaz MD Primary Care Provider [phone] Reason for Visit * Auth/Cert (Routine) Specialty Diagnoses / Procedures Referred By Duyen bui Referred To Contact Diagnoses Hyponatremia hyponatremia Procedures ER Mariola Crisostomo MD [facility] [place] [address] [facility] Referral ID Status Reason Start Date Expiration Date Visits Re quested Visits Authorized [id number] 1 1 Encounter Details Date Type Department Care Team (Late st Contact Info) Description 2024 3:10 PM EST - 2024 4:30 [place] [id number] RESOURCE, ANESTHESIA-WILLIS None MRI WITH ANESTHESIA (WRVU *) Social History Tobacco Use Types Packs/Day Years Used Date Smoking Tobacco: Never Smokeless Tobacco: Never Alcohol Use Standard Drinks/Week Comments No 0 (1 standard drink = 0.6 oz pur e alcohol) [facility] Utilities Answer Date Recorded In [...] time in the past 12 m [facility], were you homeless or living [...] needed. Per discussion with Madeleine from the detention where he lives 06/17. She notes his [...] has been significant for: Hyponatremia: Presented to [facility] following witnessed tonic-clonic seizure at nursing home, found to have sodium of 122. [...] in September 2023. On second read of [facility] scan described as hypoattenuating, [...] Seizures: 2 min tonic-clonic seizure witnessed at detention, 30 sec seziure at [facility] ED (2mg ativangiven). None [...] 97 % No results for input(s): PHART, SOR8TMY, PO2ART, IND6NBP in the last 168 hours. I/O: Date 06/21/24 0700 - 06/22/24 0659 Shift 1609-7213 4803-5471 1803-1254 24 Hour Total INTAKE P.O. 354 354 [...] Procedure Component Value Units Date/Time Blood culture [[id number]] (Abnormal) Collected: 06/18/24 190 Lab Status: Preliminary [...] a previously preliminary verified report. Blood culture [[id number]] Collected: 06/18/241899 Lab Status: Preliminary result Specimen: [...] Center 07/20/2024 1:30 PM Eron Barriga MD [facility] [id number] * Attachments The following attachments cannot be sent through Care Everywhere. * Hyponatremia (Cymro) documented in this encounter Medications at Time [...] spent >30 minutes (Day of Discharge Code 34482) involved in the final examination of the patient, discussion of the hospital stay, instructions for continuing care to all relevant caregivers, and preparation of discharge records, prescriptions and referral forms. Plans Discharge to detention Follow-up scheduled with PCP and neurosurge Please [...] appropriate/able. Sunitha Sanderson PT, DPT, NCS Pager: [phone] Physical Therapy Inpatient Rehabilitation Department * Martinez [...] 168 hours. No results for input(s): PHART, XSP2DGD, PO2ART, XKV2DMT in the last 168 hours. Microbiology: None [...] needed. Per discussion with Madeleine from the detention where he lives 06/17. She notes his [...] Code Status: FULL - Dispo: Back to detention when Martinez Kain Reynolds MD Hospital medicine [...] 168 hours. No results for input(s): PHART, FAY5KDJ, PO2ART, RDG9OFI in the last 168 hours. Microbiology: None [...] needed. Per discussion with Madeleine from the detention where he lives 06/17. She notes his [...] Code Status: FULL - Dispo: Back to detention when MR Martinez Reynolds MD [facility] medicine Service: 2900 06/19/2024 * Shola Morris MD - 06/19/2024 10:15 AM EST Images from the original note were not included. Endocrinology Follow up Note Name: Abram Burgos Date: 06/19/24 Room: [address] [place] [address] Reason for Consult: panhypopituitarism HPI Abram Burgos [...] access to additional DDAVP dosing at his detention after speaking with Jennifer from the detention. Possibility of him having access to additional water/fluid intake over the last few weeks. Bettina said that this is possible given there is often child care centre director turnover and not everyone is up to date on what is recommended. He is on a 3.5 L restriction per day at the detention. Patient was continued on home dose of [...] - will need follow up with his Pants Busheler, Dr. Zaidi or Dr. Day Littlejohn at discharge Endocrinology will sign off at this time but are available for any questions or concerns during hisremaining hospital stay. Thank you for allowing us to participate in the care of this patient. Discussed with Dr. Morris. Crista Gill MD. PGY4 [facility] Endocrinology I have seen the [...] take POat this time Shola Morris MD Heel Sewercold type artist Endocrinology Section [facility] * Doris Judd MD - 06/19/2024 [...] glean yes and no Language: fluent in gabonese and with word finding difficulty Mood: awesome [...] seems that this struggle is also a helper/driver of agitation, and one of the aspects that makes it hard for him to be here in the hospital. Meeting his physical comfort needs such as pain physical discomfort such as itching will also be important. 06/18/2024-Abram has been agitated overnight and has been un directable at times. Per collateral from his detention, this is a baseline that has been going on for many months. On learning of his detention regimen, not reflected in surescripts, we will [...] - start 600mg BID, titrate to MDD 3170-4277 in divided doses - monitor for increased [...] Minimal/Low [] Low [] Minimal/Low [] Low 57077 [] Moderate [] Moderate [] Moderate [] Moderate 75070 [] High [] High [] High [] High 79498 Final Coding Determination: Moderate * Pamela Johnson [...] 168 hours. No results for input(s): PHART, YKT3NMO, PO2ART, CPU3FHL in the last 168 hours. Microbiology: None [...] needed. Per discussion with Madeleine from the detention where he lives 06/17. She notes his [...] Code Status: FULL - Dispo: Back to detention when Pamela Emerald DO Alex [facility] medicine Service: 2900 06/18/2024 * Jaja [...] not medically ready but will return to detention when MR. [facility] [address] [place] [address] [place], [place] [id number] Spoke with Jennifer Woods RN. Updated not anticipated discharge until next week. Will submit referralto [facility] to update facility with clinicals. Confirmed [facility] provides transport. * Sunitha Sanderson PT - 06/18/2024 10:49 AM EST Physical Therapy Contact Note 06/18/24 7195 Evaluation & Treatment Document Type contact Total Minutes, Physical Therapy 0 Comment, Session Not Performed Checked in with nursing, pt awaiting stat HCT for somnolence. PT will defer and follow up as appropriate/able. Sunitha Sanderson PT, DPT, NCS Pager: [phone] Physical Therapy Inpatient Rehabilitation Department * Zoë [...] mg at 22:55. His medications from his detention were shared by their staff, with his home medicationregimen being 200 XL seroquel nightly and 100 mg BID with 100 mg PRN daily and hetlioz 20 mg qHS and melatonin nightly. Per Dr. Benítez in conversation with Madeleine from his detention, Abram goes from 0-100 very quickly and will throw things and become agitated in his home setting, and that this has been going on for many months now. On interview this morning: Abram is lying in bed under the covers having his vitals checked. He denies pain, thoughts of hurting himself,f and denies needing anything at this time. His SUPERVISOR CALIBRATION at bedside shares that he has been [...] glean yes and no Language: fluent in gabonese and with word finding difficulty Mood: no [...] seems that this struggle is also a helper/driver of agitation, and one of the aspects that makes it hard for him to be here in the hospital. Meeting his physical comfort needs such as pain physical discomfort such as itching will also be important. 06/18/2024-Abram has been agitated overnight and has been un directable at times. Per collateral from his detention, this is a baseline that has been going on for many months. On learning of his detention regimen, not reflected in surescripts, we will [...] Minimal/Low [] Low [] Minimal/Low [] Low 90150 [] Moderate [] Moderate [] Moderate [] Moderate 84434 [] High [] High [] High [] High 95635 Final Coding Determination: Moderate Associated attestation - [...] it as a standing medication at his detention). Given his mild increase in LFTs we [...] Brittny Hanna MD Department of Psychiatry Pager #[phone] * Pamela Johnson, DO - 06/17/2024 5:30 [...] 168 hours. No results for input(s): PHART, BUS0WXI, PO2ART, PTD2HQM in the last 168 hours. Microbiology: None [...] 3L daily. Spoke to Madeleine from the [facility] where he lives. She notes his [...] Code Status: FULL - Dispo: Back to detention when MR Pamela Corbin DO Alex [facility] medicine Service: 2900 06/17/2024 * Roya [...] Surgical History: Procedure Laterality Date PRO OPEN LABORATORY MACHINIST FIX ACETABULAR FX Left 09/04/2017 @OPEN TREATMENT, ACETABULAR FX (WRVU 25.41) performed by Amy Lance MD at [facility] MAIN OR Social History: Patient lives in a detention. Home Setup: accessible DME: none Baseline ADL/Mobility: [...] from EOB: min assist x 2 with TRADE MARKER Pt able to side step to L side ~4-5 steps with min assist x 2 using TRADE MARKER, cues provided for step initiation and sequencing Stand to sit x 2: min assist x 2 with TRADE MARKER Sit to supine: mod assist x 2 [...] minimal side steps to L side with TRADE MARKER. Unsure of pt's most recent functional status but anticipate pt will be able to return to his detention pending level of assistance they can provide. Pt will benefitfrom ongoing therapeutic interventions to achieve pt's and therapy goals. Anticipated Discharge Disposition (OT): other (see comments) (return to detention) Equipment Recommendations: Equipment Needs Upon Discharge (OT): [...] Minutes, Occupational Therapy: 28 (09:42-10:10 SCx2) Pager: [phone] TERRELL Isabel/Ramone Occupational Therapy Rehabilitation Department * [...] EEG CONTINUOUS MONITORING INPATIENT 2024 PRO OPEN LABORATORY MACHINIST FIX ACETABULAR FX Left 09/04/2017 @OPEN TREATMENT, ACETABULAR FX (WRVU 25.41) performed by Amy Lance MD at [facility] MAIN OR Social History: Home setup: Pt resides in an accessible detention in [facility] Baseline Mobility/Prior level of function: Had [...] to swing bed rehabilitation vs return to detention when medically stable, pending functional progress while in the hospital and level of care available at detention. Pt will benefit from ongoing physical therapy to address the above impairments and facilitate return to PLOF. Discharge Recommendations: Based on the current findings, Anticipated Discharge Disposition (PT): swing bed rehabilitation facility, adult foster care/detention when medically ready for hospital discharge. Plan: [...] (admitted for seizures; complex PMH; lives in detention) Examination of body system impairments, functional limitations and behaviors, and/or participation restrictions. Addressing 1-2 elements Addressing 3 + elements Addressing 4 + elements X Clinical presentation: See assessment above. Stable/Uncomplicated Evolving/Fluctuating Symptoms Unstable/Unpredictable X Clinical decision making of moderate complexity based on pt's functional performance as outlined inthis evaluation. Time IN / OUT: 0657-4079 Total Minutes, Physical Therapy: 30 (eval). Ludivina Stover PT DPT 06/16/2024 Pager: [phone] Physical Therapy Inpatient Rehabilitation Department * Christopher [...] seizures in the setting of hyponatremia and CHIEF AIRLINE RADIO OPERATOR structural abnormalities. This most likely provoked by new hyponatremia rather than chronic structural brain disease. Our working theory is hyponatremia provoked by issues with fluid restriction at his detention, and it is so far improving at [...] minimumof two midnights or is on the [facility] inpatient only procedure list (status C) due to: monitoring of fluid status given an inability to regulate fluid balance and the need for administration or restriction of fluids and breakthrough seizures * Lauren Ruby MD - 06/16/2024 6:54 AM EST [facility] NEUROSURGERY PROGRESS NOTE ID: Abram Burgos 34 [...] admit with jazmín of 122 while at [facility] thus far corrected to 131). Therefore no acute neurosurgical intervention warranted. We will follow up with the patient and hisfamily/legal guardian outpatient to discuss management options. We are signing off for now, rest ofcare per primary, but remain available at pager [phone] should further questions/concerns arise. Plan: -No acute neurosurgical intervention warranted -We are signing off now, but will follow up outpatient with patient/family to discuss management options -Rest of care per primary including frequency of neuro checks For questions please call NSGY pager [phone] Lauren Ruby MD 06/16/2024 7:22 AM Clinical [...] with him tomorrow. Maxine Silverio, PT Pager [phone] * Christopher Stanley MD - 2024 8:13 [...] seizures in the setting of hyponatremia and CHIEF AIRLINE RADIO OPERATOR structural abnormalities. This most likely provoked by new hyponatremia rather than chronic structural brain disease, but as yet uncertain. Our working theory is hyponatremia provoked by issues with fluid restriction at his detention, and it is so far improving at [...] O2 Device RA Maxine Silverio, PT Pager [phone] * Wilder Davis - 06/14/2024 11:19 AM [...] adjusted based on our knowledge. Was at detention when he had ~2 minute tonic clonic seizure. Presented to [facility] where he was found to be hyponatremic. Given hypertonic saline and ativan and transferred to [facility]. Physical Exam Last value Range [...] seizures in the setting of hyponatremia and CHIEF AIRLINE RADIO OPERATOR structural abnormalities. His hyponatremia is likely [...] minimumof two midnights or is on the [facility] inpatient only procedure list (status C) due to: monitoring of fluid status given an inability to regulate fluid balance and the need for administration or restriction of fluids and seizur * Malrine Calderon, TOE STRIPPER - 06/14/2024 6:42 AM EST Critical Care Progress Note Abram Burgos : 1990 Admitted: 06/14/2024 12:57 AM Hospital day: 0 ICU day: ID: Abram Burgos is a 33 y.o. 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 He was found to be hypon atremic to 121 (from apparent baseline in 140s). At [facility] he received 150cc 3% NaCl and 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 He wastransferred to [facility] where sodium of 122 was treated with 50cc 3%NaCl and Neutra-Phos. No evidence of seizure since arrival. Neurology, neurosurgery, and endocrine teams were consulted. Hospital/ICU course has been significant for: #Hyponatremia #Seizure Activity (prior to arrival at [facility]) #possible enlarging lesion in R middle cranial fossa 24-hour events: -Transferred to [facility] -Na treated with 3% (once [...] Line): -- No results for input(s): PHART, BDO2ZVQ, PO2ART, NOC1QMZ in the last 168 hours. Intake/Output Summary [...] clear culprit meds on his list.At his detention he is maintained on a 3.5L fluid [...] Lizeth Calderon APRN June 14, 2024 Pager #[phone] Critical Care Green Team documented in this [...] with seizures. The patient was transferred from [facility] from a detention ([facility]) for a seizure. He had been in his usual state of health, though notably he did have COVID within the past month. He reported that he had not been missing any of his medications, however due to some recent behavioral troubles and problems with sleeping, some of his medications have been altered recently. Hospital course notable for: Hyponatremia: Presented to [facility] following witnessed tonic-clonic seizure at nursing home, found to have sodium of 122. [...] in September 2023. On second read of [facility] scan described as hypoattenuating, [...] Seizures: 2 min tonic-clonic seizure witnessed at detention, 30 sec seziure at [facility] ED (2mg ativangiven). None [...] EEG CONTINUOUS MONITORING INPATIENT 2024 PRO OPEN LABORATORY MACHINIST FIX ACETABULAR FX Left 09/04/2017 @OPEN TREATMENT, ACETABULAR FX (WRVU 25.41) performed by Amy Lance MD at [facility] MAIN OR Social History: Social History [...] file Social History Narrative [place] [facility] moved [place] 11/07/2014. Social Determinants of Health [...] 06/14/2024 4:02 AM) Result Value WORKSTATION ID [id number] Narrative EXAMINATION: XR CHEST ONE VIEW CLINICAL [...] questions please contact the health director of health care marketing that requested your imaging first. Electronically signed by: Beverley Valencia MD, [facility] ([phone]), at 06/14/2024 4:32 AM Request For 2nd Read CT Head (Exam End: 06/14/2024 9:46 AM) Result Value WORKSTATION ID [id number] Narrative EXAMINATION: REQUEST FOR 2ND READ CT HEAD CLINICAL HISTORY: New seizure with known mass, ?enlargening. Presenting with seizure; Sending Institution [facility]; Date of exam [id number]; I believe a reinterpretation of this exam may alter care of Patient. Yes TECHNIQUE: Reinterpretation of noncontrast CT head performed at [facility] 06/13/2024 at 2143 hours [...] questions please contact the health director of health care marketing that requested your imaging first. Brain wwo Contrast (Generic) (Exam End: 2024 4:20 PM) Result Value WORKSTATION ID [id number] Narrative EXAMINATION: MRI BRAIN WWO CONTRAST (GENERIC) [...] clip with its blades near the right RETAIL OPERATIONS MANAGER. Impression Homogeneously enhancing 3.5 cm mass along [...] questions please contact the health director of health care marketing that requested your imaging first. SSMENT and [...] to be Attempt Cardiopulmonary Resuscitation - Inpatient. iTm Yuen MD Internal Medicine PGY-2 Pager: [phone] 06/16/24 Associated attestation - Channing Ballesteros MD [...] with seizures. HPI: Per report presented to [facility] from a detention ([facility]) for seizure. He has been in his usual state of health although did have covid within the past month. He has been taking his medications as prescribed although due to behavioral troubles and problems sleeping some of his medications have been altered recently. This afternoon at his detention he had a two minute whitnesses tonic [...] encephalomalacia Interventions that the pt received at [facility] included 150cc 3% NaCl, 100mg of hydrocortisone and a dose (unknown amount) of desmopressin. [facility] was contacted for transfer. Neuro [...] Surgical History: Procedure Laterality Date PRO OPEN LABORATORY MACHINIST FIX ACETABULAR FX Left 09/04/2017 @OPEN TREATMENT, ACETABULAR FX (WRVU 25.41) performed by Amy Lance MD at [facility] MAIN OR No family history on file. Social History: Lives in a detention. Ventilator Settings: Room air. Physical Exam: General: [...] 127 from the time of arrival to [facility] Should attempt 6mMol/L increase [...] NAKIA Blair June 14, 2024 Critical Care [place] Team (pager [phone]) Dr. Alfred is the attending of record for this admission documented in this encounter Procedure Notes * Joey Moura MD - 06/18/2024 1:58 PM EST [facility] Department of Neurology Inpatient Routine EEG [...] digitized electroencephalogram was performed in the [facility] Clinical Neurophysiology Laboratory. The 10/20 international system of electrode placement was used and bipolar and referential electrode montages were recorded. In addition to EEG the patient was monitored for EKGand lateral/vertical eye movements. Video was recorded during the session. DELI/BAKERY ASSOCIATE'S REPORT: Performed by: Ingrid Shi Patient was [...] agree with the report. Rosa Quezada MD [facility] Neurology * Camron Gee MD - 2024 5:19 PM ESTProcedure(s): EEG CONTINUOUS MONITORING INPATIENT [facility] Department of Neurology Inpatient Continuous Video EEG Tail Report Name of the Patient: Abram Burgos Date of : 1990 Patient Location: [facility] Date of Service: 2024 Referring physician: [...] EKG. Video was recorded during the session. DELI/BAKERY ASSOCIATE'S REPORT: Performed by: At the onset of [...] seen during this epoch. Rashard Navarrete MD INTERPERSONAL COMMUNICATIONS PROFESSOR Fellow, PGY-5 2024 EPILEPSY ATTENDING ADDENDUM - I reviewed the EEG with the INTERPERSONAL COMMUNICATIONS PROFESSOR/Epilepsy fellow, and I agree with the interpretation as documented. Camron Gee MD, PhD Professor of Neurology [facility] Epilepsy [place] Clinical Neurophysiology Laboratory [facility] * Rashard Navarrete MD - 06/14/2024 3:33 [...] Navarrete MD - 06/14/2024 3:03 PM EST [facility] Department of Neurology Inpatient Continuous Video [...] EKG. Video was recorded during the session. DELI/BAKERY ASSOCIATE'S REPORT: Performed by: At the onset of [...] seen during this epoch. Rashard Navarrete MD INTERPERSONAL COMMUNICATIONS PROFESSOR Fellow, PGY-5 06/14/2024 Associated attestation - Camron Gee MD - 2024 1:03 PM EST EPILEPSY ATTENDING ADDENDUM - I reviewed the EEG with the INTERPERSONAL COMMUNICATIONS PROFESSOR/Epilepsy fellow, and I agree with the interpretation as documented. Given the lack of evidence for underlying epileptic seizures from this recording of ~24 hours, we'd recommend considering discontinuing the CEEG study. We are available to discuss this matter with the Neurology consultation and inpatient bravo team. Camron Gee MD, PhD Professor of Neurology [facility]psy [facility] Clinical Neurophysiology Laboratory [facility] documented in this encounter Miscellaneous Notes * Plan of Care - Bell Amezcua RN - 06/21/2024 3:04 PM EST Abram Burgos discharged to [facility] by care facility's vehicle with staff from detention. All belongings sent with patient. ALLISON removed, [...] Patient is medically ready for discharge to [address] [place], [place] [address] . Kitchen Cleaner: Kemi Noriega at [facility] will be picking him up. I also spoke with Bettina Burgos Guardian to give her updates. Needs for Transition of Care: Plan for discharge is: [facility] Facility / Swing Outpatient Agency/Support Group Needs: nursing home Agency Referrals & Follow-up Care: Transportation: Kitchen Cleaner: Kemi Norigea at [facility] will be picking him up. I also spoke with Bettina Aubrey his Guardian to give her updates Wheelchair van/Ambulance? No Functional status prior to admission: Assistive Equipment and Assistive Person Home Environment: Others in the home: other (see comments) (Lives in a detention.). Current LivingArrangements: detention. Accessibility Concerns:Easy access to his surroundings. Fully [...] plan was formulated with input from patient, Kitchen Cleaner: Kemi Noriega at [facility] will be picking [...] better mood today, less agitation. Visitor from detention. Downgraded to med surg. PLAN MOVING FORWARD: [...] been altered recently. This afternoon at his detention he had a two minutewitnessed tonic clonic [...] nightly to twice daily dosing at his detention, which she had not been on before. 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 Sister reports that he has had low sodium in the past, she believes in the 120s or lower, but has not triggered seizures in the past. Patient has previously been seen at [facility] in 2014. His deficits at that time included left hemiparesis, cortical blindness, urine incontinence, dysarthria and gait disorder. 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 According to [facility] documentation, he had a spell at his detention that was concerning for seizure one month prior to his visit. BG at the time was in the 40s and he was started on Keppra in addition to Zonegran. [facility] neurologist planned for discontinuation of [...] mg 10 mg Oral BID PRN Tim Yeun MD 10 mg at 06/17/24 1759 And [...] (WRVU *) performed by JERSEY, ANESTHESIA-GEORGIE at [facility] GEORGIE PRO OPEN LABORATORY MACHINIST FIX ACETABULAR FX Left 09/04/2017 @OPEN TREATMENT, ACETABULAR FX (WRVU 25.41) performed by Amy Lance MD at [facility] MAIN OR Allergies: Allergies Allergen Reactions [...] gaze No facial asymmetry Able to weakly printed circuit boards beveler BL hands 2/5, wiggles BL toes to [...] 06/14/2024 4:02 AM) Result Value WORKSTATION ID [id number] Impression Low lung volumes with crowding of bronchovascular markings without radiographically evident acute cardiopulmonary process. Thank you for letting us participate in the care of this patient. If you are a health care provider and have any questions regarding this report, please contact the number below. For patients who have questions please contact the health director of health care marketing that requested your imaging first. Electronically signed by: Beverley Valencia MD, [facility] ([phone]), at 06/14/2024 4:32 AM Request For 2nd Read CT Head (Exam End: 06/14/2024 9:46 AM) Result Value WORKSTATION ID [id number] Impression Hypoattenuating, likely cystic mass appears to [...] questions please contact the health director of health care marketing that requested your imaging first. Brain wwo Contrast (Generic) (Exam End: 2024 4:20 PM) Result Value WORKSTATION ID [id number] Impression Homogeneously enhancing 3.5 cm mass along [...] questions please contact the health director of health care marketing that requested your imaging first. Assessment: Abram [...] Holland MD Neurology, PGY-3 Consult Neurology Service #[id number] 06/18/2024 Associated attestation - Colten Wilson MD [...] Qtc within normal limits. Staff member from detention came to visit. Scheduled medications adjusted. PLAN [...] focal atrophy Arm flexion 5/5 b/l Hand printed circuit boards beveler 5/5 b/l Able to wiggle toes Reflexes: [...] Neurology to sign off Americo Flores, MS4 [facility] * Care Management - Raudel [...] Guardian Name: Bettina Burgos-sister Guardian Contact Information: [phone] Financial Decision Maker: Guardian Guardianship paperwork on file: 1 Guardian Name: see above Guardian Contact Information: see above Functional status prior to admission: Assistive Equipment and Assistive Person Home Environment: Others in the home: other (see comments) (Lives in a detention.). Current LivingArrangements: detention. Accessibility Concerns: Easy access to his surroundings. [...] Recommendation: swing bed rehabilitation facility, adult foster care/detention with to be determined Last Occupational Therapy Recommendation: adult foster care/detention (pending on progress) with to be determined Plan for discharge is: [facility] Facility / Swing Transition Plan for After Rehab: [facility] Outpatient Agency/Support Group Needs: nursing home Agency Choices: [facility] Agency Referrals: Current referrals placed to: N/A Transportation: Barriers to discharge: Global: Discharge planning Global Comment: Coordination of returning to detention Items to Consider for Discharge: Pt's sister and guardian Bettina Burgos has given permission for the following people from his [facility] to receive updates: Lives in [facility]) -Kemi Noriega -nursing home housing case manager -Ladonna Tate -Jennifer Woods -nursing home RN CM Interventions today: CM is [...] anticipated to go return to [facility] ([facility]) with possible VNA services on top what is already offered. The patient's sister and guardian Bettina Burgos as assisting with dispo coordination. CM will continue to monitor progress, follow for continuity of care, and assist with discharge planning while patient is inpatient status on current unit. Investigate address and contact information for [facility]) and place referral so they have updated information to review to assist in dispo Review team recommendations and place referrals for VNA if medical status changes after treatments/interventions. Monitor and update referrals Anticipated Date of Discharge: 06/18/2024 Raudel Tate RN Case Field Sales Agent of Care Management * Consult Note - [...] been altered recently. This afternoon at his detention he had a two minutewitnessed tonic clonic [...] nightly to twice daily dosing at his detention, which she had not been on before. 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 Sister reports that he has had low sodium in the past, she believes in the 120s or lower, but has not triggered seizures in the past. Patient has previously been seen at [facility] in 2014. His deficits at that time included left hemiparesis, cortical blindness, urine incontinence, dysarthria and gait disorder. 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 According to [facility] documentation, he had a spell at his detention that was concerning for seizure one month prior to his visit. BG at the time was in the 40s and he was started on Keppra in addition to Zonegran. [facility] neurologist planned for discontinuation of [...] Units Subcutaneous 2 times per day Tim uYen MD 5,000 Units at 06/16/242009 traZODone (Desyrel) [...] EEG CONTINUOUS MONITORING INPATIENT 2024 PRO OPEN LABORATORY MACHINIST FIX ACETABULAR FX Left 09/04/2017 @OPEN TREATMENT, ACETABULAR FX (WRVU 25.41) performed by Amy Lance MD at [facility] MAIN OR Allergies: Allergies Allergen Reactions [...] 06/14/2024 4:02 AM) Result Value WORKSTATION ID [id number] Impression Low lung volumes with crowding of bronchovascular markings without radiographically evident acute cardiopulmonary process. Thank you for letting us participate in the care of this patient. If you are a health care provider and have any questions regarding this report, please contact the number below. For patients who have questions please contact the health director of health care marketing that requested your imaging first. Electronically signed by: Beverley Valencia MD, [facility] ([phone]), at 06/14/2024 4:32 AM Request For 2nd Read CT Head (Exam End: 06/14/2024 9:46 AM) Result Value WORKSTATION ID [id number] Impression Hypoattenuating, likely cystic mass appears to [...] questions please contact the health director of health care marketing that requested your imaging first. Brain wwo Contrast (Generic) (Exam End: 2024 4:20 PM) Result Value WORKSTATION ID [id number] Impression Homogeneously enhancing 3.5 cm mass along [...] questions please contact the health director of health care marketing that requested your imaging first. Assessment: Abram [...] Holland MD Neurology, PGY-3 Consult Neurology Service #[id number] 06/17/2024 ATTENDING NOTE: I reviewed the pertinent [...] Clinical Neurophysiology * Plan of Care - Tmoás Priest RN - 06/16/2024 11:32 PM EST [...] tends to do much better at his detention than the hospital environment as he is [...] EEG CONTINUOUS MONITORING INPATIENT 2024 PRO OPEN LABORATORY MACHINIST FIX ACETABULAR FX Left 09/04/2017 @OPEN TREATMENT, ACETABULAR FX (WRVU 25.41) performed by Amy Lance MD at [facility] MAIN OR Allergies: Allergies Allergen Reactions [...] focal atrophy Arm flexion 5/5 b/l Hand 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 Americo Flores, MS4 [facility] * Consult Note - Kellen [...] been altered recently. This afternoon at his detention he had a two minutewitnessed tonic clonic [...] nightly to twice daily dosing at his detention, which she had not been on before. 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 Sister reports that he has had low sodium in the past, she believes in the 120s or lower, but has not triggered seizures in the past. Patient has previously been seen at [facility] in 2014. His deficits at that time included left hemiparesis, cortical blindness, urine incontinence, dysarthria and gait disorder. 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 According to [facility] documentation, he had a spell at his detention that was concerning for seizure one month prior to his visit. BG at the time was in the 40s and he was started on Keppra in addition to Zonegran. [facility] neurologist planned for discontinuation of [...] EEG CONTINUOUS MONITORING INPATIENT 2024 PRO OPEN LABORATORY MACHINIST FIX ACETABULAR FX Left 09/04/2017 @OPEN TREATMENT, ACETABULAR FX (WRVU 25.41) performed by Amy Lance MD at [facility] MAIN OR Allergies: Allergies Allergen Reactions [...] 06/14/2024 4:02 AM) Result Value WORKSTATION ID [id number] Impression Low lung volumes with crowding of bronchovascular markings without radiographically evident acute cardiopulmonary process. Thank you for letting us participate in the care of this patient. If you are a health care provider and have any questions regarding this report, please contact the number below. For patients who have questions please contact the health director of health care marketing that requested your imaging first. Electronically signed by: Beverley Valencia MD, [facility] ([phone]), at 06/14/2024 4:32 AM Request For 2nd Read CT Head (Exam End: 06/14/2024 9:46 AM) Result Value WORKSTATION ID [id number] Impression Hypoattenuating, likely cystic mass appears to [...] questions please contact the health director of health care marketing that requested your imaging first. Brain wwo Contrast (Generic) (Exam End: 2024 4:20 PM) Result Value WORKSTATION ID [id number] Impression Homogeneously enhancing 3.5 cm mass along [...] questions please contact the health director of health care marketing that requested your imaging first. Assessment: Abram [...] altered mental status prior to presentation is market survey representative of ongoing seizures at home. This [...] once nightly to twice daily by his detention. He may need titration of medicationsto promote [...] Admitted From: Transfer from another hospital Location: [facility] Reason for Hospitalization: Per sister, patient had seizure activity for the first time in 9 years.EMS called. Past medical History: No past medical history on file. Hospitalizations Within the Past 30 Days: no previous admission in last 30 days Current Decision-Making Capacity: Guardian Name(s): Bettina Burgos Contact Information: [phone] (cell) Proxy Activated: Yes Paperwork on file?: [...] home: other (see comments) (Lives in a detention.). Current LivingArrangements: detention. Accessibility Concerns:Easy access to his surroundings. Fully [...] In the past 12 months has the [employer], gas, oil, or water [employer] threatened to shut off services in your [...] at times) Home Address confirmed as: [address] [facility] [address] Attn: [facility] [facility] [address] Social & Family Supports: All names listed below confirmed with patient as current and correct Extended Emergency Contact Information Primary Emergency Contact: Bettina Burgos Address: [facility] [place] [address] [facility] Relation: Guardianship Secondary Emergency Contact: Lc Merlos [facility] Relation: Other Current Care Provided by: [facility] Provides Primary Care For: no one, unable/limited ability to care for self Caregiver if needed: other (see comments) (nursing home) Quality of Family relationships: supportive, involved Community Resources being provided currently: detention Behavioral Health History: Per chart review, Pt [...] N/A ; Prescription Coverage: Yes Preferred Pharmacy: [facility] Home Delivery - [facility] [address] [facility] [address] [facility] [address] [facility] [place], [place] - [address] [facility] [address] [facility] [address] [facility] [address] [address] [facility] [address] Status: Patient is a : No Primary Care Provider confirmed: Ren Vaz MD [phone] Patient/Caregiver Goals of Treatment: Anticipating return to detention when medically ready Potential Needs for Transition of Care: none Agency Referrals: [facility] Transportation: no concerns Transportation Anticipated: agency Concerns to be Addressed: other (see comments) (Needing transportation via [facility] at discharge) Assessment: Patient is admitted to service for Hyponatremia Pt is a 34 year dependent male, living in a detention. Pt guardian is his sister, Bettina. Bettina is very involved and supportive. Guardianship paperwork is on file. Pt is cared for by his group homestaff while his finances remain in the care of his guardian. Re[facility] out to [facility] to confirm [facility] plans. The detention will reach out with any information regarding this. Plan going forward: Pending hospital course Care Management team will continue to follow and assist with discharge planing and coordination of care as indicated. JAMSHID Ramirez Medicine SW Pager [phone] * Consult Note - Kellen Braxton MD [...] been altered recently. This afternoon at his detention he had a two minutewitnessed tonic clonic [...] nightly to twice daily dosing at his detention, which she had not been on before. 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 Sister reports that he has had low sodium in the past, she believes in the 120s or lower, but has not triggered seizures in the past. Patient has previously been seen at [facility] in 2014. His deficits at that time included left hemiparesis, cortical blindness, urine incontinence, dysarthria and gait disorder. 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 According to [facility] documentation, he had a spell at his detention that was concerning for seizure one month prior to his visit. BG at the time was in the 40s and he was started on Keppra in addition to Zonegran. [facility] neurologist planned for discontinuation of [...] Surgical History: Procedure Laterality Date PRO OPEN LABORATORY MACHINIST FIX ACETABULAR FX Left 09/04/2017 @OPEN TREATMENT, ACETABULAR FX (WRVU 25.41) performed by Amy Lance MD at [facility] MAIN OR Allergies: Allergies Allergen Reactions [...] 06/14/2024 4:02 AM) Result Value WORKSTATION ID [id number] Impression Low lung volumes with crowding of bronchovascular markings without radiographically evident acute cardiopulmonary process. Thank you for letting us participate in the care of this patient. If you are a health care provider and have any questions regarding this report, please contact the number below. For patients who have questions please contact the health director of health care marketing that requested your imaging first. Electronically signed by: Beverley Valencia MD, [facility] ([phone]), at 06/14/2024 4:32 AM Request For 2nd Read CT Head (Exam End: 06/14/2024 9:46 AM) Result Value WORKSTATION ID [id number] Impression Hypoattenuating, likely cystic mass appears to [...] questions please contact the health director of health care marketing that requested your imaging first. 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 Neurosurgery is consulted for a 3 cm hypodensity in the anterior right middle fossa. He lives at a detention. This past weekend, he was in his normal state of health when he had a witnessed 2 minute seizure, reportedly with generalized stiffening. He was brought to [facility], where he was found to have Na of 121. He had a tongue laceration. In the ED there he had an additional witnessed seizure. He was transferred to the [facility] MICU for a higher level [...] underwent tumor resection with Dr. Álvarez at [facility]. This was complicated by arterial [...] Surgical History: Procedure Laterality Date PRO OPEN LABORATORY MACHINIST FIX ACETABULAR FX Left 09/04/2017 @OPEN TREATMENT, ACETABULAR FX (WRVU 25.41) performed by Amy Lance MD at [facility] MAIN OR MEDICATIONS: No current facility-administered [...] file Social History Narrative [place] [facility]2014. Social Determinants of Health [...] neurosurgery attending. No future appointments. Neurosurgery Pager: [phone] Gonzalez Kirkpatrick MD Neurosurgery PGY-1 06/14/2024 6:44 [...] Surgical History: Procedure Laterality Date PRO OPEN LABORATORY MACHINIST FIX ACETABULAR FX Left 09/04/2017 @OPEN TREATMENT, ACETABULAR FX (WRVU 25.41) performed by Amy Lance MD at [facility] MAIN OR Social History: Patient lives in a detention. Home Setup: accessible DME: none Baseline ADL/Mobility: [...] x2 handhold Ambulation: CGA x2 handhold for ccwmo-[id number] transfer EOB<>commode Stand to sit: CGA Sit [...] be determined Anticipated Discharge Dispostion: adult foster care/detention (pending on progress) Other Recommendations: Open shades [...] Discharge planning. Total Minutes, Occupational Therapy: 16 ([id number] (evaluation)) 2017 OT Evaluation Code Rationale: Diagnosis [...] and measurable assessment of functional outcome. Pager: [phone] Dinorah Navas OTR/L 06/14/2024 Occupational Therapy Rehabilitation [...] follows with Dr. Zaidi of Endocrinology at [facility]. Recently saw a covering provider, Day Littlejohn in March 2024. He currently resides in a detention, [facility] where nurses and medical assistants provide [...] Surgical History: Procedure Laterality Date PRO OPEN LABORATORY MACHINIST FIX ACETABULAR FX Left 09/04/2017 @OPEN TREATMENT, ACETABULAR FX (WRVU 25.41) performed by Amy Lance MD at [facility] MAIN OR No family history on [...] file Social History Narrative [place] [facility] moved [place] 11[place]/2014. Social Determinants of Health [...] access to additional DDAVP dosing at his detention. Pos sibility of him having access to additional water/fluid intake over the last few weeks. Patients sister and legal guardian said that this is possible given there is often child care centre director turnover and not everyone is up to [...] with Dr. Morris. Crista Gill MD. PGY4 [facility] Endocrinology Pager #[phone] I have seen the patient and reviewed [...] is effective and safe Shola Morris MD Heel Sewercold type artist Endocrinology Section [facility] * Consult Note - Kellen Braxton [...] been altered recently. This afternoon at his detention he had a two minutewitnessed tonic clonic [...] nightly to twice daily dosing at his detention, which she had not been on before. 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 Sister reports that he has had low sodium in the past, she believes in the 120s or lower, but has not triggered seizures in the past. Patient has previously been seen at [facility] in 2014. His deficits at that time included left hemiparesis, cortical blindness, urine incontinence, dysarthria and gait disorder. 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 According to [facility] documentation, he had a spell at his detention that was concerning for seizure one month prior to his visit. BG at the time was in the 40s and he was started on Keppra in addition to Zonegran. [facility] neurologist planned for discontinuation of [...] Surgical History: Procedure Laterality Date PRO OPEN LABORATORY MACHINIST FIX ACETABULAR FX Left 09/04/2017 @OPEN TREATMENT, ACETABULAR FX (WRVU 25.41) performed by Amy Lance MD at [facility] MAIN OR Allergies: Allergies Allergen Reactions [...] Flexor digitorum profundus Digit II-V flexion / page makeup system operator 5 5 L2-3 Iliopsoas Hip flexion [...] 06/14/2024 4:02 AM) Result Value WORKSTATION ID [id number] Impression Low lung volumes with crowding of bronchovascular markings without radiographically evident acute cardiopulmonary process. Thank you for letting us participate in the care of this patient. If you are a health care provider and have any questions regarding this report, please contact the number below. For patients who have questions please contact the health director of health care marketing that requested your imaging first. Electronically signed by: Beverley Valencia MD, [facility] ([phone]), at 06/14/2024 4:32 AM Assessment: Abram Burgos [...] Holland MD Neurology, PGY-3 Consult Neurology Service #[id number] 06/14/2024 ATTENDING NOTE: I reviewed the pertinent [...] 2024 4:20 PM EST Unlisted Mri Procedure ([id number]) 2024 2:56 PM EST Please evaluate lesion [...] 06/14/2024 9:46 AM EST URINALYSIS BEAKER MICROSCOPIC ([facility]) SHEEBA 06/14/2024 8:06 AM EST [...] Hepatic Function Panel (06/21/2024 12:50 AM EST) [facility] Albumin 4.0 3.2 - 5.2 g/dL [...] CHEMISTRY ORDERABLES [facility] [place] [address] * (ABNORMAL) CBC (with Diff) (06/21/2024 12:50 [...] ORDERABLE S [facility] [place] [address] * Phosphorus (06/21/2024 12:50 AM EST) Phosphorus 3.2 2.5 - 4.5 mg/dL 06/21/2024 1:30 AM [facility] Blood VENOUS BLOOD SPECIMEN / Unknown Venipuncture / Unknown 06/21/2024 12:50 AM EST 06/21/2024 12:56 AM EST Martinez Reynolds MD CHEMISTRY ORDERABLES [facility] [place] [address] * Magnesium (06/21/2024 12:50 AM EST) Magnesium 0.81 0.69 - 1.07 mMol/L 06/21/2024 1:30 AM EST [facility] Blood VENOUS BLOOD SPECIMEN / Unknown Venipuncture / Unknown 06/21/2024 12:50 AM EST 06/21/2024 12:56 AM EST Martinez Reynolds MD CHEMISTRY ORDERABLES [facility] [place] [address] * (ABNORMAL) Basic Metabolic Panel (06/21/2024 12:50 [...] 118 mL/min/1. 73 m?? 06/21/2024 1:44 AM [facility] Comment: This patient's estimated GFR [...] CHEMISTRY ORDERABLES [facility] [place] [address] * (ABNORMAL) Hepatic Function Panel (06/20/2024 12:53 AM EST) Albumin 4.4 3.2 - 5.2 g/dL 06/20/2024 1:42 AM EST [facility] Aspartate Aminotransferase 65(H) <=39 unit/L 06/20/2024 1:42 AM EST [facility] Alanine Aminotransferase 80(H) 0 - 55 unit/L 06/20/2024 1:42 AM [facility] Alkaline Phosphatase 128 40 - 130 [...] CHEMISTRY ORDERABLES [facility] [place] [address] * (ABNORMAL) CBC (with Diff) (06/20/2024 12:53 AM EST) White Blood Cell 5.59 4.00 - 9.50 x10(3)/mc L 06/20/2024 1:23 AM [facility] Red Blood Cell 5.50 4.58 - 5.54 x10(6)/mc L 06/20/2024 1:23 AM [facility] Hemoglobin 13.5(L) 13.7 - 16.5 g/dL 06/20/2024 1:23 AM [facility] Hematocrit 40.9 40.5 - 48.5 % 06/20/2024 1:23 AM [facility] Mean Cell Volume 74.4(L) 82.9 - 93.1 fL 06/20/2024 1:23 AM [facility] Mean Cell Hemoglobin 24.5(L) 27.5 - 32.1 pg 06/20/2024 1:23 AM [facility] Mean Cell Hemoglobin Concentration 33.0 32.0 - 35.7 g/dL 06/20/2024 1:23 AM [facility] Platelet 303 145 - 357 x10(3)/mc L 06/20/2024 1:23 AM [facility] Mean Platelet Volume 8.9 7.6 - 12.9 fL 06/20/2024 1:23 AM [facility] RDW Standard Deviation 39.6 36.0 - 45.0 fL 06/20/2024 1:23 AM [facility] RDW coefficient of variation 14.7(H) 11.4 - 13.8 % 06/20/2024 1:23 AM [facility] NRBC% auto 0.0 % 06/20/2024 1:23 AM [facility] NRBC Absolute <0.01 <0.01 x10(3)/mc L 06/20/2024 1:23 AM [facility] Neutrophil % 54.2 % 06/20/2024 1:23 AM [facility] Neutrophil Absolute (ANC) - Automated 3.03 1.70 - 6.10 x10(3)/mc L 06/20/2024 1:23 AM [facility] Lymph % 31.1 % 06/20/2024 1:23 AM [facility] Lymph Absolute 1.74 0.90 - 3.20 x10(3)/mc L 06/20/2024 1:23 AM [facility] Monocyte % 11.8 % 06/20/2024 1:23 AM [facility] Monocyte Absolute 0.66 0.30 - 0.90 x10(3)/mc L 06/20/2024 1:23 AM [facility] Eos % 2.0 % 06/20/2024 1:23 AM [facility] Eos Absolute 0.11 0.00 - 0.40 x10(3)/mc L 06/20/2024 1:23 AM [facility] Basophil % 0.4 % 06/20/2024 1:23 AM [facility] Baso Absolute <0.04 0.00 - 0.10 x10(3)/mc L 06/20/2024 1:23 AM [facility] Immature Gran % 0.5 % 1:23 AM [facility] Immature Gran Absolute <0.04 0.00 - 0.04 x10(3)/mc L 06/20/2024 1:23 AM [facility] Blood VENOUS BLOOD SPECIMEN / Unknown Venipuncture / Unknown 06/20/2024 12:53 AM EST 06/20/2024 1:12 AM EST Martinez Reynolds MD HEMATOLOGY ORDERABLE S [facility] [place] [address] * Phosphorus (06/20/2024 12:53 AM EST) Pathologist [facility] Phosphorus 3.7 2.5 - 4.5 mg/dL 06/20/2024 1:42 AM [facility] Blood VENOUS BLOOD SPECIMEN / Unknown Venipuncture / Unknown 06/20/2024 12:53 AM EST 06/20/2024 1:11 AM EST Martinez Reynolds MD CHEMISTRY ORDERABLES Performing Organization Address City/[facility]/ZIP Co de Phone Number [facility] [place] [address] * Magnesium (06/20/2024 12:53 AM EST) [facility] Magnesium 0.76 0.69 - 1.07 mMol/L 06/20/2024 1:42 AM [facility] Blood VENOUS BLOOD SPECIMEN / Unknown Venipuncture / Unknown 06/20/2024 12:53 AM EST 06/20/2024 1:11 AM EST Martinez Reynolds MD CHEMISTRY ORDERABLES Performing Organization Address City/[facility]/ZIP Co de Phone Number [facility] [place] [address] * (ABNORMAL) Basic Metabolic Panel (06/20/2024 12:53 AM EST) [facility] Glucose 95 65 - 199 mg/dL 06/20/2024 1:42 AM [facility] Comment:Glucose Concentratio n >=200 mg/dL plus symptoms is consistent with Diabetes Mellitus. Blood Urea Nitrogen 10 10 - 20 mg/dL 06/20/2024 1:42 AM [facility] Creatinine 0.75(L) 0.80 - 1.50 mg/dL 06/20/2024 1:42 AM [facility] Sodium 137 135 - 145 mMol/L 06/20/2024 1:42 AM [facility] Potassium 3.7 3.5 - 5.0 mMol/L 06/20/2024 1:42 AM EST [facility] Chloride 102 98 - 107 mMol/L 06/20/2024 1:42 AM [facility] Carbon Dioxide 20(L) 22 - 31 mMol/L 06/20/2024 1:42 AM [facility] Anion Gap 15 5 - 15 mMol/L 06/20/2024 1:42 AM EST [facility] Calcium 9.1 8.5 - 10.5 mg/dL 06/20/2024 1:42 AM EST [facility] Est Glomerular Filtration Rate - Male 121 mL/min/1. 73 m?? 06/20/2024 1:42 AM [facility] Comment: This patient's estimated GFR [...] CHEMISTRY ORDERABLES [facility] [place] [address] * (ABNORMAL) Hepatic Function Panel (06/19/2024 4:10 AM EST) Albumin 4.2 3.2 - 5.2 g/dL 06/19/2024 4:51 AM EST [facility] Aspartate Aminotransferase 57(H) <=39 unit/L 06/19/2024 4:51 AM EST [facility] Alanine Aminotransferase 76(H) 0 - 55 unit/L 06/19/2024 4:51 AM [facility] Alkaline Phosphatase 133(H) 40 - 130 unit/L 06/19/2024 4:51 AM [facility] Bilirubin, Total 0.2 <=1.3 mg/dL 06/19/2024 4:51 AM [facility] Bilirubin, Direct <0.2 0.0 - 0.3 mg/dL 06/19/2024 4:51 AM [facility] Protein, Total 7.5 6.1 - 8.0 g/dL 06/19/2024 4:51 AM [facility] Blood VENOUS BLOOD SPECIMEN / Unknown Venipuncture / Unknown 06/19/2024 4:10 AM EST 06/19/2024 4:21 AM EST Martinez Reynolds MD CHEMISTRY ORDERABLES Performing Organization Address City/State/[facility] Co de Phone Number [facility] [place] [address] * (ABNORMAL) CBC (with Diff) (06/19/2024 4:10 AM EST) White Blood Cell 6.86 4.00 - 9.50 x10(3)/mc L 06/19/2024 4:28 AM [facility] Red Blood Cell 5.60(H) 4.58 - 5.54 x10(6)/mc L 06/19/2024 4:28 AM [facility] Hemoglobin 13.8 13.7 - 16.5 g/dL 06/19/2024 4:28 AM [facility] Hematocrit 41.6 40.5 - 48.5 % 06/19/2024 4:28 AM [facility] Mean Cell Volume 74.3(L) 82.9 - 93.1 fL 06/19/2024 4:28 AM [facility] Mean Cell Hemoglobin 24.6(L) 27.5 - 32.1 pg 06/19/2024 4:28 AM [facility] Mean Cell Hemoglobin Concentration 33.2 32.0 - 35.7 g/dL 06/19/2024 4:28 AM [facility] Platelet 297 145 - 357 x10(3)/mc L 06/19/2024 4:28 AM [facility] Mean Platelet Volume 9.1 7.6 - 12.9 fL 06/19/2024 4:28 AM [facility] RDW Standard Deviation 39.1 36.0 - 45.0 fL 06/19/2024 4:28 AM [facility] RDW coefficient of variation 14.8(H) 11.4 - 13.8 % 06/19/2024 4:28 AM [facility] NRBC% auto 0.0 % 06/19/2024 4:28 AM [facility] NRBC Absolute <0.01 <0.01 x10(3)/mc L 06/19/2024 4:28 AM [facility] Neutrophil % 64.0 % 06/19/2024 4:28 AM [facility] Neutrophil Absolute (ANC) - Automated 4.39 1.70 - 6.10 x10(3)/mc L 06/19/2024 4:28 AM [facility] Lymph % 28.7 % 06/19/2024 4:28 AM [facility] Lymph Absolute 1.97 0.90 - 3.20 x10(3)/mc L 06/19/2024 4:28 AM [facility] Monocyte % 4.1 % 06/19/2024 4:28 AM [facility] Monocyte Absolute 0.28(L) 0.30 - 0.90 x10(3)/mc L 06/19/2024 4:28 AM [facility] Eos % 2.2 % 06/19/2024 4:28 AM [facility] Eos Absolute [...] 4:10 AM EST 06/19/2024 4:21 AM EST Matrinez Reynolds MD HEMATOLOGY ORDERABLE S [facility] [place] [address] * (ABNORMAL) Phosphorus (06/19/2024 4:10 AM EST) Phosphorus 5.0(H) 2.5 - 4.5 mg/dL 06/19/2024 4:51 AM EST [facility] Blood VENOUS BLOOD SPECIMEN / Unknown Venipuncture / Unknown 06/19/2024 4:10 AM EST 06/19/2024 4:21 AM EST Martinez Reynolds MD CHEMISTRY ORDERABLES [facility] [place] [address] * Magnesium (06/19/2024 4:10 AM EST) Magnesium 0.74 0.69 - 1.07 mMol/L 06/19/2024 4:51 AM EST [facility] Blood VENOUS BLOOD SPECIMEN / Unknown Venipuncture / Unknown 06/19/2024 4:10 AM EST 06/19/2024 4:21 AM EST Martinez Reynolds MD CHEMISTRY ORDERABLES [facility] [place] [address] * (ABNORMAL) Basic Metabolic Panel (06/19/2024 4:10 AM EST) Glucose 112 65 - 199 mg/dL 06/19/2024 4:51 AM [facility] Comment:Glucose Concentratio n >=200 mg/dL plus symptoms is consistent with Diabetes Mellitus. Blood Urea Nitrogen 19 10 - 20 mg/dL 06/19/2024 4:51 AM [facility] Creatinine 0.86 0.80 - 1.50 mg/dL 06/19/2024 4:51 AM [facility] Sodium 135 135 - 145 mMol/L 06/19/2024 4:51 AM [facility] Potassium 3.8 3.5 - 5.0 mMol/L 06/19/2024 4:51 AM [facility] Chloride 97(L) 98 - 107 mMol/L 06/19/2024 4:51 AM [facility] Carbon Dioxide 25 22 - 31 mMol/L 06/19/2024 4:51 AM [facility] Anion Gap 13 5 - 15 mMol/L 06/19/2024 4:51 AM [facility] Calcium 9.4 8.5 - 10.5 mg/dL 06/19/2024 4:51 AM [facility] Est Glomerular Filtration Rate - Male 117 mL/min/1. 73 m?? 06/19/2024 4:51 AM [facility] Comment: This patient's estimated GFR [...] CHEMISTRY ORDERABLES [facility] [place] [address] * (ABNORMAL) Urinalysis with reflex Culture (06/19/2024 3:22 AM EST) Glucose, Urine Dipstick Negative Negative 06/19/2024 3:37 AM [facility] Protein, Urine Dipstick Negative Negative 06/19/2024 3:37 AM [facility] Bilirubin, Urine Dipstick Negative Negative 06/19/2024 3:37 AM [facility] Comment:Clinical correlation required [...] 3:37 AM [facility] Specific [place] Urine Automated 1.021 1.005 - 1.030 06/19/2024 [...] URINE ORDERABLES [facility] [place] [address] * XR Chest One View (06/18/2024 7:55 PM EST) [employer] WORKSTATION ID [id number] DH RAD Anatomical Region Laterality Modality Chest [...] questions please contact the health director of health care marketing that requested your imaging first. ? Narrative [...] have questions please contactthe health director of health care marketing that requested your imaging first. Electronically signed by: Tobias Sotomayor MD[facility]([phone]), at 06/18/2024 8:09 PM Pamela Johnson DO IMG DX ORDERABLES * Blood culture (06/18/2024 7:00 PM EST) Blood Culture No growth at 120 hours 06/23/2024 8:00 PM EST [facility] Blood VENOUS BLOOD SPECIMEN / Unknown Venipuncture / Unknown 06/18/2024 7:00 PM EST 06/18/2024 7:05 PM EST Pamela Johnson DO MICROBIOLOGY - BL OOD ORDERABLES [facility] [place] [address] * (ABNORMAL) Blood culture (06/18/2024 7:00 PM EST) [facility] Blood Culture Coagulase Negative Staphylococcus species(Critical) [...] [facility]/ZIP Co de Phone Number [facility] [place] [address] * POC, GLUCOSE (06/18/2024 6:55 PM EST) [facility] Glucometer, POC 100 65 - 199 mg/dL 06/18/2024 6:56 PM EST [facility] Comment:Supplemental ranges: <140 mg/dL before meals <180 mg/dL all other times of the day. Blood CAPILLARY BLOOD / Unknown 06/18/2024 6:55 PM EST 06/18/2024 6:56 PM EST Pamela Johnson DO POINT OF CARE TABATHA T ORDERABLES [facility] [place] [address] * EKG 12 Lead (06/18/2024 1:41 PM EST) [facility] Ventricular rate 47 BPM MUSE SYSTEM Atrial Rate 47 BPM MUSE SYSTEM P-R Interval 186 ms MUSE SYSTEM QRS Duration 114 ms MUSE SYSTEM Q-T Interval 558 ms MUSE SYSTEM QTC Calculated (Bezet) 493 ms MUSE SYSTEM Calculated P [place] 11 degrees MUSE SYSTEM Calculated R [place] 45 degrees MUSE SYSTEM Calculated T [place] 45 degrees MUSE SYSTEM INTERPRETATION Sinus bradycardia [...] DO CHEMISTRY ORDERAB LES Performing Organization Address City/[facility]/ZIP Co de Phone Number [facility] [place] [address] * CT Head wo Contrast (Generic) (06/18/2024 11:18 AM EST) WORKSTATION ID [id number] RAD Anatomical Region Laterality Modality Head Computed [...] questions please contact the health director of health care marketing that requested your imaging first. ? Narrative [...] have questions please contactthe health director of health care marketing that requested your imaging first. Pamela Johnson DO [facility] CT ORDERABLES * (ABNORMAL) Hepatic Function Panel (06/18/2024 1:26 AM EST) [facility] Albumin 4.2 3.2 - 5.2 g/dL 06/18/2024 2:02 AM EST [facility] Aspartate Aminotransferase 52(H) <=39 unit/L 06/18/2024 2:02 AM [facility] Alanine Aminotransferase 61(H) 0 - 55 unit/L 06/18/2024 2:02 AM [facility] Alkaline Phosphatase 118 40 - 130 unit/L 06/18/2024 2:02 AM [facility] Bilirubin, Total 0.3 <=1.3 mg/dL 06/18/2024 2:02 AM [facility] Bilirubin, Direct <0.2 0.0 - 0.3 mg/dL 06/18/2024 2:02 AM [facility] Protein, Total 6.9 6.1 - 8.0 g/dL 06/18/2024 2:02 AM [facility] Blood VENOUS BLOOD SPECIMEN / Unknown Venipuncture / Unknown 06/18/2024 1:26 AM EST 06/18/2024 1:34 AM EST Martinez Reynolds MD CHEMISTRY ORDERABLES [facility] [place] [address] * (ABNORMAL) CBC (with Diff) (06/18/2024 1:26 AM EST) [facility] White Blood Cell 9.78(H) 4.00 - 9.50 x10(3)/mc L 06/18/2024 1:38 AM EST [facility] Red Blood Cell 5.02 4.58 - 5.54 x10(6)/mc L 06/18/2024 1:38 AM [facility] Hemoglobin 12.4(L) 13.7 - 16.5 g/dL 06/18/2024 1:38 AM [facility] Hematocrit 37.2(L) 40.5 - 48.5 % 06/18/2024 1:38 AM [facility] Mean Cell Volume 74.1(L) 82.9 - 93.1 fL 06/18/2024 1:38 AM [facility] Mean Cell Hemoglobin 24.7(L) 27.5 - 32.1 pg 06/18/2024 1:38 AM [facility] Mean Cell Hemoglobin Concentration 33.3 32.0 - 35.7 g/dL 06/18/2024 1:38 AM [facility] Platelet 262 145 - 357 x10(3)/mc L 06/18/2024 1:38 AM [facility] Mean Platelet Volume 9.2 7.6 - 12.9 fL 06/18/2024 1:38 AM [facility] RDW Standard Deviation 40.8 36.0 - 45.0 fL 06/18/2024 1:38 AM [facility] RDW coefficient of variation 15.3(H) 11.4 - 13.8 % 06/18/2024 1:38 AM [facility] NRBC% auto 0.0 % 06/18/2024 1:38 AM [facility] NRBC Absolute <0.01 <0.01 x10(3)/mc L 06/18/2024 1:38 AM [facility] Neutrophil % 72.8 % 06/18/2024 1:38 AM [facility] Neutrophil Absolute (ANC) - Automated 7.12(H) 1.70 - 6.10 x10(3)/mc L 06/18/2024 1:38 AM [facility] Lymph % 16.9 % 06/18/2024 1:38 AM [facility] Lymph Absolute 1.65 0.90 - 3.20 x10(3)/mc L 06/18/2024 1:38 AM [facility] Monocyte % 8.7 % 06/18/2024 1:38 AM [facility] Monocyte Absolute 0.85 0.30 - 0.90 x10(3)/mc L 06/18/2024 1:38 AM [facility] Eos % 1.0 % 06/18/2024 1:38 AM [facility] Eos Absolute 0.10 0.00 - 0.40 x10(3)/mc L 06/18/2024 1:38 AM [facility] Basophil % 0.2 % 06/18/2024 1:38 AM [facility] Baso Absolute <0.04 0.00 - 0.10 x10(3)/mc L 06/18/2024 1:38 AM [facility] Immature Gran % 0.4 % 1:38 AM [facility] Immature Gran Absolute 0.04 0.00 - 0.04 x10(3)/mc L 06/18/2024 1:38 AM [facility] Blood VENOUS BLOOD SPECIMEN / Unknown Venipuncture / Unknown 06/18/2024 1:26 AM EST 06/18/2024 1:34 AM EST Martinez Reynolds MD HEMATOLOGY ORDERABLE S Performing Organization Address City/State/[facility] Co de Phone Number [facility] [place] [place] [address] * (ABNORMAL) Phosphorus (06/18/2024 1:26 AM EST) Phosphorus 5.7(H) 2.5 - 4.5 mg/dL 06/18/2024 2:02 AM [facility] Blood VENOUS BLOOD SPECIMEN / Unknown Venipuncture / Unknown 06/18/2024 1:26 AM EST 06/18/2024 1:34 AM EST Martinez Reynolds MD CHEMISTRY ORDERABLES [facility] [place] [address] * Magnesium (06/18/2024 1:26 AM EST) Magnesium 0.84 0.69 - 1.07 mMol/L 06/18/2024 2:02 AM [facility] Blood VENOUS BLOOD SPECIMEN / Unknown Venipuncture / Unknown 06/18/2024 1:26 AM EST 06/18/2024 1:34 AM EST Martinez Reynolds MD CHEMISTRY ORDERABLES Performing Organization Address City/[facility]/ZIP Co de Phone Number [facility] [place] [address] * Basic Metabolic Panel (06/18/2024 1:26 AM EST) Pathologist [facility] Glucose 106 65 - 199 mg/dL 06/18/2024 2:02 AM [facility] Comment:Glucose Concentratio n >=200 mg/dL plus symptoms is consistent with Diabetes Mellitus. Blood Urea Nitrogen 15 10 - 20 mg/dL 06/18/2024 2:02 AM [facility] Creatinine 1.05 0.80 - 1.50 mg/dL 06/18/2024 2:02 AM [facility] Sodium 138 135 - 145 mMol/L 06/18/2024 2:02 AM [facility] Potassium 4.4 3.5 - 5.0 mMol/L 06/18/2024 2:02 AM [facility] Chloride 102 98 - 107 mMol/L 06/18/2024 2:02 AM [facility] Carbon Dioxide 25 22 - 31 mMol/L 06/18/2024 2:02 AM [facility] Anion Gap 11 5 - 15 mMol/L 06/18/2024 2:02 AM [facility] Calcium 9.3 8.5 - 10.5 [...] CHEMISTRY ORDERABLES [facility] [place] [id number] * EKG 12 Lead (06/18/2024 12:53 AM EST) Ventricular rate 79 BPM MUSE SYSTEM Atrial Rate 79 BPM MUSE SYSTEM P-R Interval 160 ms MUSE SYSTEM QRS Duration 98 ms MUSE SYSTEM Q-T Interval 420 ms MUSE SYSTEM QTC Calculated (Bezet) 481 ms MUSE SYSTEM Calculated P [place] 17 degrees MUSE SYSTEM Calculated R [place] 46 degrees MUSE SYSTEM Calculated T [place] 45 degrees MUSE SYSTEM INTERPRETATION Normal sinus rhythm Nonspecific T wave abnormality Prolonged QT Abnormal ECG When compared with ECG of 14-JUN-2024 01:04, Nonspecific T wave abnormality now evident in Anterior leads I personally reviewed the tracing and edited the fellows interpretation Confirmed by fellow MD Corbin, Maninder ([id number]) on 06/18/2024 4:57:53 PM Confirmed by Anthony [...] CHEMISTRY ORDERABLES [facility] [place] [place] [address] * (ABNORMAL) Hepatic Function Panel (06/17/2024 11:58 AM EST) Albumin 4.2 3.2 - 5.2 g/dL 06/17/2024 12:45 PM [facility] Aspartate Aminotransferase 37 <=39 unit/L 06/17/2024 12:45 PM [facility] Alanine Aminotransferase 58(H) 0 - 55 unit/L 06/17/2024 12:45 PM [facility] Alkaline Phosphatase 118 40 - 130 unit/L 06/17/2024 12:45 PM [facility] Bilirubin, Total 0.2 <=1.3 mg/dL 06/17/2024 12:45 PM [facility] Bilirubin, Direct <0.2 0.0 - 0.3 mg/dL 06/17/2024 12:45 PM [facility] Protein, Total 7.1 6.1 - 8.0 g/dL 06/17/2024 12:45 PM EST [facility] Blood VENOUS BLOOD SPECIMEN / Unknown Venipuncture / Unknown 06/17/2024 11:58 AM EST 06/17/2024 12:11 PM EST Pamela Johnson DO CHEMISTRY ORDERAB LES Performing Organization Address City/[facility]/ZIP Co de Phone Number [facility] [place] [address] * Sodium (06/17/2024 11:58 AM EST) Sodium 141 135 - 145 mMol/L 06/17/2024 12:45 PM EST [facility] Blood VENOUS BLOOD SPECIMEN / Unknown Venipuncture / Unknown 06/17/2024 11:58 AM EST 06/17/2024 12:11 PM EST Channing Ballesteros MD CHEMISTRY ORDERABLES Performing Organization Address [facility]/ZIP Co de Phone Number [facility] [place] [place] [address] * Sodium (06/17/2024 6:23 AM EST) Sodium 140 135 - 145 mMol/L 06/17/2024 6:53 AM EST [facility] Blood VENOUS BLOOD SPECIMEN / Unknown Venipuncture / Unknown 06/17/2024 6:23 AM EST 06/17/2024 6:29 AM EST Channing Ballesteros MD CHEMISTRY ORDERABLES Performing Organization Address City/[facility]/ZIP Co de Phone Number [facility] [place] [address] * (ABNORMAL) CBC (with Diff) (06/17/2024 12:22 [...] 40.5 - 48.5 % 06/17/2024 12:37 AM [facility] Mean Cell Volume 72.9(L) 82.9 - 93.1 fL 06/17/2024 12:37 AM [facility] Mean Cell Hemoglobin 24.8(L) 27.5 - 32.1 pg 06/17/2024 12:37 AM [facility] Mean Cell Hemoglobin Concentration 34.0 32.0 - 35.7 g/dL 06/17/2024 12:37 AM [facility] Platelet 301 145 - 357 x10(3)/mc L 06/17/2024 12:37 AM [facility] Mean Platelet Volume 9.0 7.6 - 12.9 fL 06/17/2024 12:37 AM [facility] RDW Standard Deviation 38.8 36.0 - 45.0 fL 06/17/2024 12:37 AM [facility] RDW coefficient of variation 14.9(H) 11.4 - 13.8 % 06/17/2024 12:37 AM [facility] NRBC% auto 0.0 % 06/17/2024 12:37 AM [facility] NRBC Absolute <0.01 <0.01 x10(3)/mc L 06/17/2024 12:37 AM [facility] Neutrophil % 58.2 % 06/17/2024 12:37 AM [facility] Neutrophil Absolute (ANC) - Automated 3.96 1.70 - 6.10 x10(3)/mc L 06/17/2024 12:37 AM [facility] Lymph % 30.1 % 06/17/2024 12:37 AM [facility] Lymph Absolute 2.05 0.90 - 3.20 x10(3)/mc L 06/17/2024 12:37 AM [facility] Monocyte % 9.8 % 06/17/2024 12:37 AM [facility] Monocyte Absolute 0.67 0.30 - 0.90 x10(3)/mc L 06/17/2024 12:37 AM EST [facility] Eos % 1.0 % 06/17/2024 12:37 AM [facility] Eos Absolute 0.07 0.00 - 0.40 x10(3)/mc L 06/17/2024 12:37 AM EST [facility] Basophil % 0.3 % 06/17/2024 12:37 AM [facility] Baso Absolute <0.04 0.00 - 0.10 x10(3)/mc L 06/17/2024 12:37 AM [facility] Immature Gran % 0.6 % 12:37 AM [facility] Immature Gran Absolute 0.04 0.00 - 0.04 x10(3)/mc L 06/17/2024 12:37 AM [facility] Blood VENOUS BLOOD SPECIMEN / Unknown Venipuncture / Unknown 06/17/2024 12:22 AM EST 06/17/2024 12:28 AM EST Martinez Reynolds MD HEMATOLOGY ORDERABLE S [facility] [place] [address] * Phosphorus (06/17/2024 12:22 AM EST) Phosphorus 4.3 2.5 - 4.5 mg/dL 06/17/2024 12:58 AM EST [facility] Blood VENOUS BLOOD SPECIMEN / Unknown Venipuncture / Unknown 06/17/2024 12:22 AM EST 06/17/2024 12:28 AM EST Martinez Reynolds MD CHEMISTRY ORDERABLES [facility] [place] [address] * Magnesium (06/17/2024 12:22 AM EST) Magnesium 0.88 0.69 - 1.07 mMol/L 06/17/2024 12:58 AM EST [facility] Blood VENOUS BLOOD SPECIMEN / Unknown Venipuncture / Unknown 06/17/2024 12:22 AM EST 06/17/2024 12:28 AM EST Martinez Reynolds MD CHEMISTRY ORDERABLES [facility] [place] [address] * Basic Metabolic Panel (06/17/2024 12:22 AM EST) Glucose 99 65 - 199 mg/dL 06/17/2024 1:12 AM [facility] Comment:Glucose Concentratio n >=200 mg/dL plus symptoms is consistent with Diabetes Mellitus. Blood Urea Nitrogen 14 10 - 20 mg/dL 06/17/2024 1:12 AM [facility] Creatinine 0.90 0.80 - 1.50 mg/dL 06/17/2024 1:12 AM [facility] Sodium 140 135 - 145 mMol/L 06/17/2024 1:12 AM [facility] Potassium 4.1 3.5 - 5.0 mMol/L 06/17/2024 1:12 AM [facility] Chloride 105 98 - 107 mMol/L 06/17/2024 1:12 AM [facility] Carbon Dioxide 24 22 - 31 mMol/L 06/17/2024 1:12 AM [facility] Anion Gap 11 5 - 15 mMol/L 06/17/2024 1:12 AM [facility] Calcium 9.4 8.5 - 10.5 mg/dL 06/17/2024 1:12 AM [facility] Est Glomerular Filtration Rate - Male 115 mL/min/1. 73 m?? 06/17/2024 1:12 AM [facility] Comment: This patient's estimated GFR [...] [facility]ZIP Co de Phone Number [facility] [place] [address] * Sodium (06/16/2024 6:37 PM EST) Sodium 142 135 - 145 mMol/L 06/16/2024 6:55 PM EST [facility] Blood VENOUS BLOOD SPECIMEN / Unknown Venipuncture / Unknown 06/16/2024 6:37 PM EST 06/16/2024 6:42 PM EST Channing Ballesteros MD CHEMISTRY ORDERABLES Performing Organization Address [facility]/ZIP Co de Phone Number [facility] [place] [address] * Sodium (06/16/2024 2:05 PM EST) Sodium 135 135 - 145 mMol/L 06/16/2024 2:54 PM EST [facility] Blood VENOUS BLOOD SPECIMEN / Unknown Venipuncture / Unknown 06/16/2024 2:05 PM EST 06/16/2024 2:23 PM EST Channing Ballesteros MD CHEMISTRY ORDERABLES [facility] [place] [address] * Sodium (06/16/2024 12:03 PM EST) Sodium 139 135 - 145 mMol/L 06/16/2024 1:02 PM EST [facility] Blood VENOUS BLOOD SPECIMEN / Unknown Venipuncture / Unknown 06/16/2024 12:03 PM EST 06/16/2024 12:06 PM EST Marline Calderon TOE STRIPPER CHEMISTRY ORDERABL ES [facility] [place] [address] * (ABNORMAL) Sodium (06/16/2024 6:00 AM EST) Sodium 131(L) 135 - 145 mMol/L 06/16/2024 6:26 AM EST [facility] Blood VENOUS BLOOD SPECIMEN / Unknown Venipuncture / Unknown 06/16/2024 6:00 AM EST 06/16/2024 6:03 AM EST Marline Calderon TOE STRIPPER CHEMISTRY ORDERABL ES [facility] [place] [address] * (ABNORMAL) CBC (with Diff) (06/16/2024 12:09 [...] 40.5 - 48.5 % 06/16/2024 12:26 AM [facility] Mean Cell Volume 72.1(L) 82.9 - 93.1 fL 06/16/2024 12:26 AM [facility] Mean Cell Hemoglobin 24.9(L) 27.5 - 32.1 pg 06/16/2024 12:26 AM [facility] Mean Cell Hemoglobin Concentration 34.6 32.0 - 35.7 g/dL 06/16/2024 12:26 AM [facility] Platelet 241 145 - 357 x10(3)/mc L 06/16/2024 12:26 AM [facility] Mean Platelet Volume 9.3 7.6 - 12.9 fL 06/16/2024 12:26 AM [facility] RDW Standard Deviation 37.3 36.0 - 45.0 fL 06/16/2024 12:26 AM [facility] RDW coefficient of variation 14.5(H) 11.4 - 13.8 % 06/16/2024 12:26 AM [facility] NRBC% auto 0.0 % 06/16/2024 12:26 AM [facility] NRBC Absolute <0.01 <0.01 x10(3)/mc L 06/16/2024 12:26 AM [facility] Neutrophil % 64.4 % 06/16/2024 12:26 AM [facility] Neutrophil Absolute (ANC) - Automated 4.96 1.70 - 6.10 x10(3)/mc L 06/16/2024 12:26 AM [facility] Lymph % 23.7 % 06/16/2024 12:26 AM [facility] Lymph Absolute 1.83 0.90 - 3.20 x10(3)/mc L 06/16/2024 12:26 AM [facility] Monocyte % 9.7 % 06/16/2024 12:26 AM [facility] Monocyte Absolute 0.75 0.30 - 0.90 [...] Immature Gran % 0.8 % 12:26 AM [facility] Immature Gran Absolute 0.06(H) 0.00 - 0.04 x10(3)/mc L 06/16/2024 12:26 AM [facility] Blood VENOUS BLOOD SPECIMEN / Unknown Venipuncture / Unknown 06/16/2024 12:09 AM EST 06/16/2024 12:21 AM EST Martinez Reynolds MD HEMATOLOGY ORDERABLE S [facility] [place] [address] * Phosphorus (06/16/2024 12:09 AM EST) Phosphorus 3.2 2.5 - 4.5 mg/dL 06/16/2024 12:50 AM EST [facility] Blood VENOUS BLOOD SPECIMEN / Unknown Venipuncture / Unknown 06/16/2024 12:09 AM EST 06/16/2024 12:21 AM EST Martinez Reynolds MD CHEMISTRY ORDERABLES [facility] [place] [address] * Magnesium (06/16/2024 12:09 AM EST) Magnesium 0.85 0.69 - 1.07 mMol/L 06/16/2024 12:50 AM [facility] Blood VENOUS BLOOD SPECIMEN / Unknown Venipuncture / Unknown 06/16/2024 12:09 AM EST 06/16/2024 12:21 AM EST Martinez Reynolds MD CHEMISTRY ORDERABLES [facility] [place] [address] * (ABNORMAL) Basic Metabolic Panel (06/16/2024 12:09 AM EST) Glucose 92 65 - 199 mg/dL 06/16/2024 12:50 AM [facility] Comment:Glucose Concentratio n >=200 mg/dL plus symptoms is consistent with Diabetes Mellitus. Blood Urea Nitrogen 12 10 - 20 mg/dL 06/16/2024 12:50 AM [facility] Creatinine 0.92 0.80 - 1.50 mg/dL 06/16/2024 12:50 AM [facility] Sodium 131(L) 135 - 145 mMol/L 06/16/2024 12:50 AM [facility] Potassium 3.9 3.5 - 5.0 mMol/L 06/16/2024 12:50 AM [facility] Chloride 99 98 - 107 mMol/L 06/16/2024 12:50 AM [facility] Carbon Dioxide 22 22 - 31 mMol/L 06/16/2024 12:50 AM [facility] Anion Gap 10 5 - 15 mMol/L 06/16/2024 12:50 AM [facility] Calcium 8.3(L) 8.5 - 10.5 mg/dL 06/16/2024 12:50 AM [facility] Est Glomerular Filtration Rate - Male 112 mL/min/1. 73 m?? 06/16/2024 12:50 AM [facility] Comment: This patient's estimated GFR [...] [facility]/[place] [address] * (ABNORMAL) Sodium (2024 5:58 PM EST) Sodium 129(L) 135 - 145 mMol/L 2024 6:37 PM EST [facility] Blood VENOUS BLOOD SPECIMEN / Unknown Venipuncture / Unknown 2024 5:58 PM EST 2024 6:05 PM EST Marline Calderon APRN CHEMISTRY ORDERABL ES Performing Organization Address [facility] [place] [address] * MRI Brain wwo Contrast (Generic) (2024 4:20 PM EST) WORKSTATION ID [id number] DH RAD Anatomical Region Laterality Modality Head [...] questions please contact the health director of health care marketing that requested your imaging first. ? Narrative [...] clip with its blades near the right [employer]AIL [employer]PERATIONS MANAGER. 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 IMPRESSION Homogeneously enhancing 3.5 cm mass along [...] have questions please contactthe health director of health care marketing that requested your imaging first. Marline Calderon APRN IMG MRI ORDERABLES * (ABNORMAL) Sodium (2024 12:07 PM EST) Sodium 129(L) 135 - 145 mMol/L 2024 12:47 PM EST [facility] Blood VENOUS BLOOD SPECIMEN / Unknown Venipuncture / Unknown 2024 12:07 PM EST 2024 12:33 PM EST Marline Calderon APRN CHEMISTRY ORDERABL ES [facility] [place] [address] * (ABNORMAL) Sodium (2024 5:54 AM EST) Sodium 128(L) 135 - 145 mMol/L 2024 6:42 AM [facility] Blood VENOUS BLOOD SPECIMEN / Unknown Venipuncture / Unknown 2024 5:54 AM EST 2024 6:14 AM EST Marline Calderon TOE STRIPPER CHEMISTRY ORDERABL ES [facility] [place] [address] * (ABNORMAL) CBC (with Diff) (2024 12:06 AM EST) Pathologist [facility] White Blood Cell 6.30 4.00 - 9.50 x10(3)/mc L 2024 12:17 AM [facility] Red Blood Cell 4.79 4.58 - 5.54 x10(6)/mc L 2024 12:17 AM [facility] Hemoglobin 11.9(L) 13.7 - 16.5 g/dL 2024 12:17 AM [facility] Hematocrit 34.2(L) 40.5 - 48.5 % 2024 12:17 AM [facility] Mean Cell Volume 71.4(L) 82.9 - 93.1 fL 2024 12:17 AM [facility] Mean Cell Hemoglobin 24.8(L) 27.5 - 32.1 pg 2024 12:17 AM [facility] Mean Cell Hemoglobin Concentration 34.8 32.0 - 35.7 g/dL 2024 12:17 AM [facility] Platelet 269 145 - 357 x10(3)/mc L 2024 12:17 AM [facility] Mean Platelet Volume 9.1 7.6 - 12.9 fL 2024 12:17 AM [facility] RDW Standard Deviation 35.5(L) 36.0 - 45.0 fL 2024 12:17 AM [facility] RDW coefficient of variation 13.9(H) 11.4 - 13.8 % 2024 12:17 AM [facility] NRBC% auto 0.0 % 2024 12:17 AM [facility] NRBC Absolute <0.01 <0.01 x10(3)/mc L 2024 12:17 AM [facility] Neutrophil % 57.9 % 2024 12:17 AM [facility] Neutrophil Absolute (ANC) - Automated 3.65 1.70 - 6.10 x10(3)/mc L 2024 12:17 AM [facility] Lymph % 30.3 % 2024 12:17 AM [facility] Lymph Absolute 1.91 0.90 - 3.20 x10(3)/mc L 2024 12:17 AM [facility] Monocyte % 9.7 % 2024 12:17 AM [facility] Monocyte Absolute 0.61 0.30 - 0.90 x10(3)/mc L 2024 12:17 AM [facility] Eos % 1.3 % 2024 12:17 AM [facility] Eos Absolute 0.08 0.00 - 0.40 x10(3)/mc L 2024 12:17 AM [facility] Basophil % 0.3 % 2024 12:17 AM [facility] Baso Absolute <0.04 0.00 - 0.10 x10(3)/mc L 2024 12:17 AM [facility] Immature Gran % 0.5 % 12:17 AM [facility] Immature Gran Absolute <0.04 0.00 - 0.04 x10(3)/mc L 2024 12:17 AM EST [facility] Blood VENOUS BLOOD SPECIMEN / Unknown Venipuncture / Unknown 2024 12:06 AM EST 2024 12:10 AM EST Martinez Reynolds MD HEMATOLOGY ORDERABLE S [facility] [place] [address] * Phosphorus (2024 12:06 AM EST) Phosphorus 2.8 2.5 - 4.5 mg/dL 2024 12:39 AM EST [facility] Blood VENOUS BLOOD SPECIMEN / Unknown Venipuncture / Unknown 2024 12:06 AM EST 2024 12:10 AM EST Martinez Reynolds MD CHEMISTRY ORDERABLES Performing Organization Address City/[facility] Co de Phone Number [facility] [place] [address] * Magnesium (2024 12:06 AM EST) Magnesium 0.79 0.69 - 1.07 mMol/L 2024 12:39 AM EST [facility] Blood VENOUS BLOOD SPECIMEN / Unknown Venipuncture / Unknown 2024 12:06 AM EST 2024 12:10 AM EST Martinez Reynolds MD CHEMISTRY ORDERABLES Performing Organization Address City/[facility] Co de Phone Number [facility] [place] [address] * (ABNORMAL) Basic Metabolic Panel (2024 12:06 AM EST) Glucose 103 65 - 199 mg/dL 2024 12:39 AM [facility] Comment:Glucose Concentratio n >=200 mg/dL plus symptoms is consistent with Diabetes Mellitus. Blood Urea Nitrogen 14 10 - 20 mg/dL 2024 12:39 AM [facility] Creatinine 0.74(L) 0.80 - 1.50 mg/dL 2024 12:39 AM [facility] Sodium 128(L) 135 - 145 mMol/L 2024 12:39 AM [facility] Potassium 4.1 3.5 - 5.0 mMol/L 2024 12:39 AM [facility] Chloride 97(L) 98 - 107 mMol/L 2024 12:39 AM [facility] Carbon Dioxide 19(L) 22 - 31 mMol/L 2024 12:39 AM [facility] Anion Gap 12 5 - 15 mMol/L 2024 12:39 AM [facility] Calcium 8.1(L) 8.5 - 10.5 mg/dL 2024 12:39 AM [facility] Est Glomerular Filtration Rate - Male 122 mL/min/1. 73 m?? 2024 12:39 AM [facility] Comment: This patient's estimated GFR [...] [facility]/ZIP Co de Phone Number [facility] [place] [address] * (ABNORMAL) Sodium (06/14/2024 6:49 PM EST) Sodium 126(L) 135 - 145 mMol/L 06/14/2024 7:17 PM EST [facility] Blood VENOUS BLOOD SPECIMEN / Unknown Venipuncture / Unknown 06/14/2024 6:49 PM EST 06/14/2024 6:53 PM EST Marline Calderon APRN CHEMISTRY ORDERABL ES Performing Organization Address [facility] Co de Phone Number [facility] [place] [address] * EEG Continuous Monitoring Inpatient (06/14/2024 3:33 [...] [facility]/ZIP Co de Phone Number [facility] [place] [address] * (ABNORMAL) Sodium (06/14/2024 12:12 PM EST) Sodium 125(L) 135 - 145 mMol/L 06/14/2024 12:48 PM EST [facility] Blood VENOUS BLOOD SPECIMEN / Unknown Venipuncture / Unknown 06/14/2024 12:12 PM EST 06/14/2024 12:20 PM EST Mariola Alfred MD CHEMISTRY ORDERABLES [facility] [place] [address] * (ABNORMAL) Sodium (06/14/2024 10:35 AM EST) Sodium 125(L) 135 - 145 mMol/L 06/14/2024 11:21 AM EST [facility] Blood VENOUS BLOOD SPECIMEN / Unknown Venipuncture / Unknown 06/14/2024 10:35 AM EST 06/14/2024 10:44 AM EST Mariola Alfred MD CHEMISTRY ORDERABLES Performing Organization Address City/[facility]/ZIP Co de Phone Number [facility] [place] [address] * Request For 2nd Read CT Head (06/14/2024 9:46 AM EST) WORKSTATION ID [id number] [facility] [...] questions please contact the health director of health care marketing that requested your imaging first. ? Narrative 06/14/2024 10:41 AM EST EXAMINATION: REQUEST FOR 2ND READ CT HEAD CLINICAL HISTORY: New seizure with known mass, ?enlargening. Presenting with seizure; Sending Institution [facility]; Date of exam [id number]; I believe a reinterpretation of this exam may alter care of Patient. Yes TECHNIQUE: Reinterpretation of noncontrast CT head performed at [facility] 06/13/2024 at 2143 hours [...] ?enlargening. Presentingwith seizure; Sending Institution [facility]; Date of exam [id number]; [...] have questions please contactthe health director of health care marketing that requested your imaging first. Lexie Osullivan APRN IMG OUTSIDE INTERP RETATION ORDERABLES * (ABNORMAL) Urinalysis Microscopic (06/14/2024 8:06 AM EST) Bacteria, Urine None None /HPF 12:26 PM [facility] Amorphous Crystals, Urine Many(A) None /HPF 06/14/2024 12:26 PM [facility] RBC, Urine 1 0 - 3 /HPF 06/14/2024 12:26 PM [facility] WBC, Urine 1 0 - 3 /HPF 06/14/2024 12:26 PM [facility] Squamous Epithelial Cells, Urine 0 0 - 5 /HPF 06/14/2024 12:26 PM [facility] Hyaline Casts, Urine 0 0 - 2 /LPF 06/14/2024 12:26 PM [facility] Urine URINE SPECIMEN / Unknown Non Blood Collection / Unknown 06/14/2024 8:06 AM EST 06/14/2024 8:52 AM EST Marline Calderon APRN URINE ORDERABLES Performing Organization Address [facility] Co de Phone Number [facility] [place] [address] * Urinalysis Microscopic Exam (06/14/2024 8:06 AM EST) Urine URINE SPECIMEN / Unknown Non Blood Collection / Unknown 06/14/2024 8:06 AM EST 06/14/2024 8:52 AM EST Marline Calderon APRN URINE ORDERABLES Performing Organization Address City/[facility] Co de Phone Number [facility] [place] [address] * (ABNORMAL) Urinalysis Dipstick (06/14/2024 8:06 AM EST) Glucose, Urine Dipstick Negative Negative 06/14/2024 12:26 PM [facility] Protein, Urine Dipstick Negative Negative [...] 12:26 PM [facility] Specific [place] Urine Automated 1.016 1.005 - 1.030 06/14/2024 [...] URINE ORDERABLES [facility] [place] [address] * (ABNORMAL) Sodium (06/14/2024 8:06 AM EST) Sodium 124(L) 135 - 145 mMol/L 06/14/2024 9:59 AM EST [facility] Blood VENOUS BLOOD SPECIMEN / Unknown Venipuncture / Unknown 06/14/2024 8:06 AM EST 06/14/2024 8:53 AM EST Mariola Alfred MD CHEMISTRY ORDERABLES [facility] [place] [address] * Electrolytes, urine, random (06/14/2024 8:06 AM [...] [facility]/ZIP Co de Phone Number [facility] [place] [place] [address] * Osmolality, urine, random (06/14/2024 8:06 AM EST) Osmolality, Urine 496 50 - 1,200 mOsm/kg 06/14/2024 10:55 AM [facility] Urine URINE SPECIMEN / Unknown Non Blood Collection / Unknown 06/14/2024 8:06 AM EST 06/14/2024 8:52 AM EST Mariola Alfred MD URINE ORDERABLES [facility] [place] [address] * (ABNORMAL) CBC (with Diff) (06/14/2024 5:27 AM EST) White Blood Cell 8.68 4.00 - 9.50 x10(3)/mc L 06/14/2024 5:54 AM [facility] Red Blood Cell 5.08 4.58 - 5.54 x10(6)/mc L 06/14/2024 5:54 AM [facility] Hemoglobin 12.5(L) 13.7 - 16.5 g/dL 06/14/2024 5:54 AM [facility] Hematocrit 35.8(L) 40.5 - 48.5 % 06/14/2024 5:54 AM [facility] Mean Cell Volume 70.5(L) 82.9 - 93.1 fL 06/14/2024 5:54 AM [facility] Mean Cell Hemoglobin 24.6(L) 27.5 - 32.1 pg 06/14/2024 5:54 AM [facility] Mean Cell Hemoglobin Concentration 34.9 32.0 - 35.7 g/dL 06/14/2024 5:54 AM [facility] Platelet 284 145 - 357 x10(3)/mc L 06/14/2024 5:54 AM [facility] Mean Platelet Volume 9.2 7.6 - 12.9 fL 06/14/2024 5:54 AM [facility] RDW Standard Deviation 34.3(L) 36.0 - 45.0 fL 06/14/2024 5:54 AM [facility] RDW coefficient of variation 13.6 11.4 - 13.8 % 06/14/2024 5:54 AM [facility] NRBC% auto 0.0 % 06/14/2024 5:54 AM [facility] NRBC Absolute <0.01 <0.01 x10(3)/mc L 06/14/2024 5:54 AM [facility] Neutrophil % 81.7 % 06/14/2024 5:54 AM [facility] Neutrophil Absolute (ANC) - Automated 7.09(H) 1.70 - 6.10 x10(3)/mc L 06/14/2024 5:54 AM [facility] Lymph % 13.0 % 06/14/2024 5:54 AM [facility] Lymph Absolute 1.13 0.90 - 3.20 x10(3)/mc L 06/14/2024 5:54 AM [facility] Monocyte % 4.3 % 06/14/2024 5:54 AM [facility] Monocyte Absolute 0.37 0.30 - 0.90 x10(3)/mc L 06/14/2024 5:54 AM [facility] Eos % 0.2 % 06/14/2024 5:54 AM [facility] Eos Absolute <0.04 0.00 - 0.40 [...] ORDERABLE S [facility] [place] [address] * Phosphorus (06/14/2024 5:27 AM EST) Phosphorus 2.8 2.5 - 4.5 mg/dL 06/14/2024 8:36 AM EST [facility] Blood VENOUS BLOOD SPECIMEN / Unknown Venipuncture / Unknown 06/14/2024 5:27 AM EST 06/14/2024 5:45 AM EST Martinze Reynolds MD CHEMISTRY ORDERABLES [facility] [place] [address] * Magnesium (06/14/2024 5:27 AM EST) Magnesium 0.83 0.69 - 1.07 mMol/L 06/14/2024 6:22 AM EST [facility] Blood VENOUS BLOOD SPECIMEN / Unknown Venipuncture / Unknown 06/14/2024 5:27 AM EST 06/14/2024 5:45 AM EST Martinez Reynolds MD CHEMISTRY ORDERABLES [facility] [place] [address] * (ABNORMAL) Basic Metabolic Panel (06/14/2024 5:27 AM EST) Glucose 109 65 - 199 mg/dL 06/14/2024 6:22 AM EST [facility] Comment:Glucose Concentratio n >=200 mg/dL plus symptoms is consistent with Diabetes Mellitus. Blood Urea Nitrogen 14 10 - 20 mg/dL 06/14/2024 6:22 AM [facility] Creatinine 0.76(L) 0.80 - 1.50 mg/dL 06/14/2024 6:22 AM [facility] Sodium 124(L) 135 - 145 mMol/L 06/14/2024 6:22 AM [facility] Potassium 4.0 3.5 - 5.0 mMol/L 06/14/2024 6:22 AM [facility] Chloride 93(L) 98 - 107 mMol/L 06/14/2024 6:22 AM [facility] Carbon Dioxide 19(L) 22 - 31 mMol/L 06/14/2024 6:22 AM [facility] Anion Gap 12 5 - 15 mMol/L 06/14/2024 6:22 AM [facility] Calcium 7.9(L) 8.5 - 10.5 mg/dL 06/14/2024 6:22 AM [facility] Est Glomerular Filtration Rate - Male 122 mL/min/1. 73 m?? 06/14/2024 6:22 AM [facility] Comment: This patient's estimated GFR [...] CHEMISTRY ORDERABLES [facility] [place] [address] * XR Chest One View (06/14/2024 4:02 AM EST) [employer] WORKSTATION ID [id number] RAD Anatomical Region Laterality Modality Chest N/A [...] questions please contact the health director of health care marketing that requested your imaging first. ? Narrative [...] have questions please contactthe health director of health care marketing that requested your imaging first. Mariola Alfred MD IMG DX ORDERABLES * (ABNORMAL) Sodium (06/14/2024 3:32 AM EST) Sodium 122(L) 135 - 145 mMol/L 06/14/2024 4:02 AM EST [facility] Blood VENOUS BLOOD SPECIMEN / Unknown Venipuncture / Unknown 06/14/2024 3:32 AM EST 06/14/2024 3:37 AM EST Mariola Alfred MD CHEMISTRY ORDERABLES [facility] [place] [address] * (ABNORMAL) Blood Gas, Venous POC (06/14/2024 [...] 0.5 - 2.2 mmol/L 06/14/2024 1:36 AM [facility] Ionized Calcium, Venous 1.10(L) 1.15 - 1.33 mmol/L 06/14/2024 1:36 AM EST [facility] Blood VENOUS BLOOD SPECIMEN / Unknown 06/14/2024 1:35 AM EST 06/14/2024 1:36 AM EST Mariola Alfred MD POINT OF CARE TEST O ELISABET Performing Organization Address [facility] Co de Phone Number [facility] [facility] [place] [place] [address] * POC, GLUCOSE (06/14/2024 1:06 AM EST) Glucometer, POC 113 65 - 199 mg/dL 06/14/2024 1:06 AM EST [facility] Comment:Supplemental ranges: <140 mg/dL before meals <180 mg/dL all other times of the day. Blood CAPILLARY BLOOD / Unknown 06/14/2024 1:06 AM EST 06/14/2024 1:06 AM EST Mariola Alfred MD POINT OF CARE TEST O ELISABET Performing Organization Address [facility] Co de Phone Number [facility] [place] [address] * EKG 12 Lead (06/14/2024 1:04 AM EST) Ventricular rate 85 BPM MUSE SYSTEM Atrial Rate 85 BPM MUSE SYSTEM P-R Interval 182 ms MUSE SYSTEM QRS Duration 94 ms MUSE SYSTEM Q-T Interval 388 ms MUSE SYSTEM QTC Calculated (Bezet) 461 ms MUSE SYSTEM Calculated P [place] 35 degrees MUSE SYSTEM Calculated R [place] 57 degrees MUSE SYSTEM Calculated T [place] 48 degrees MUSE SYSTEM INTERPRETATION Normal sinus rhythm Normal ECG When compared with ECG of 01-MAR-2018 09:20, Nonspecific T wave abnormality no longer evident in Inferior leads T wave inversion no longer evident in Lateral leads I personally reviewed the tracing and edited the fellows interpretation Confirmed by fellow Rosalie Obrien ([id number]) on 2024 9:31:30 PM Confirmed by Hannah Marin MD ([id number]) on 06/17/2024 11:43:44 AM MUSE SYSTEM 06/14/2024 1:04 AM EST 06/17/2024 11:43 AM EST Mariola Alfred MD ECG ORDERABLES MUSE SYSTEM * Scan, Peripheral Blood (06/14/2024 1:03 AM EST) RBC Morphology Abnormal 06/14/2024 2:00 AM EST [facility] Platelet Estimate Normal Normal 06/14/2024 2:00 AM [facility] Microcyte 1-5 /HPF 06/14/2024 2:00 AM [facility] Tear Cell 1-5 /HPF 06/14/2024 2:00 AM [facility] Blood VENOUS BLOOD SPECIMEN / Unknown Venipuncture / Unknown 06/14/2024 1:03 AM EST 06/14/2024 1:08 AM EST Mariola Alfred MD HEMATOLOGY ORDERABLE S [facility] [place] [id number] * (ABNORMAL) CBC (with Diff) (06/14/2024 1:03 AM EST) White Blood Cell 10.38(H) 4.00 - 9.50 x10(3)/mc L 06/14/2024 2:00 AM [facility] Red Blood Cell 5.05 4.58 - 5.54 x10(6)/mc L 06/14/2024 2:00 AM [facility] Hemoglobin 12.2(L) 13.7 - 16.5 g/dL 06/14/2024 2:00 AM [facility] Hematocrit 35.5(L) 40.5 - 48.5 % 06/14/2024 2:00 AM [facility] Mean Cell Volume 70.3(L) 82.9 - 93.1 fL 06/14/2024 2:00 AM [facility] Mean Cell Hemoglobin 24.2(L) 27.5 - 32.1 pg 06/14/2024 2:00 AM [facility] Mean Cell Hemoglobin Concentration 34.4 32.0 - 35.7 g/dL 06/14/2024 2:00 AM [facility] Platelet 276 145 - 357 x10(3)/mc L 06/14/2024 2:00 AM [facility] Mean Platelet Volume 9.0 7.6 - 12.9 fL 06/14/2024 2:00 AM [facility] RDW Standard Deviation 33.6(L) 36.0 - 45.0 fL 06/14/2024 2:00 AM [facility] RDW coefficient of variation 13.4 11.4 - 13.8 % 06/14/2024 2:00 AM [facility] NRBC% auto 0.0 % 06/14/2024 2:00 AM [facility] NRBC Absolute <0.01 <0.01 x10(3)/mc L 06/14/2024 2:00 AM [facility] Neutrophil % 85.7 % 06/14/2024 2:00 AM [facility] Neutrophil Absolute (ANC) - Automated 8.90(H) 1.70 - 6.10 x10(3)/mc L 06/14/2024 2:00 AM [facility] Lymph % 8.4 % 06/14/2024 2:00 AM [facility] Lymph Absolute 0.87(L) 0.90 - 3.20 x10(3)/mc L 06/14/2024 2:00 AM [facility] Monocyte % 4.4 % 06/14/2024 2:00 AM [facility] Monocyte Absolute 0.46 0.30 - 0.90 x10(3)/mc L 06/14/2024 2:00 AM [facility] Eos % 0.5 % 06/14/2024 2:00 AM EST [facility] Eos Absolute 0.05 0.00 - 0.40 x10(3)/mc L 06/14/2024 2:00 AM [facility] Basophil % 0.2 % 06/14/2024 2:00 AM [facility] Baso Absolute <0.04 0.00 - 0.10 x10(3)/mc L 06/14/2024 2:00 AM EST [facility] Immature Gran % 0.8 % 2:00 AM [facility] Immature Gran Absolute 0.08(H) 0.00 - 0.04 x10(3)/mc L 06/14/2024 2:00 AM [facility] Blood VENOUS BLOOD SPECIMEN / Unknown Venipuncture / Unknown 06/14/2024 1:03 AM EST 06/14/2024 1:08 AM EST Martinez Reynolds MD HEMATOLOGY ORDERABLE S [facility] [place] [address] * (ABNORMAL) Phosphorus (06/14/2024 1:03 AM EST) Phosphorus 1.5(L) 2.5 - 4.5 mg/dL 06/14/2024 1:46 AM [facility] Blood VENOUS BLOOD SPECIMEN / Unknown Venipuncture / Unknown 06/14/2024 1:03 AM EST 06/14/2024 1:08 AM EST Martinez Reynolds MD CHEMISTRY ORDERABLES [facility] [place] [address] * Magnesium (06/14/2024 1:03 AM EST) Magnesium 0.90 0.69 - 1.07 mMol/L 06/14/2024 1:46 AM [facility] Blood VENOUS BLOOD SPECIMEN / Unknown Venipuncture / Unknown 06/14/2024 1:03 AM EST 06/14/2024 1:08 AM EST Martinez Reynolds MD CHEMISTRY ORDERABLES [facility] [place] [address] * (ABNORMAL) Basic Metabolic Panel (06/14/2024 1:03 AM EST) Glucose 95 65 - 199 mg/dL 06/14/2024 1:49 AM [facility] Comment:Glucose Concentratio n >=200 mg/dL plus symptoms is consistent with Diabetes Mellitus. Blood Urea Nitrogen 14 10 - 20 mg/dL 06/14/2024 1:49 AM [facility] Creatinine 0.80 0.80 - 1.50 mg/dL 06/14/2024 1:49 AM [facility] Sodium 123(L) 135 - 145 mMol/L 06/14/2024 1:49 AM [facility] Potassium 3.7 3.5 - 5.0 mMol/L 06/14/2024 1:49 AM [facility] Chloride 91(L) 98 - 107 mMol/L 06/14/2024 1:49 AM [facility] Carbon Dioxide 19(L) 22 - 31 mMol/L 06/14/2024 1:49 AM [facility] Anion Gap 13 5 - 15 mMol/L 06/14/2024 1:49 AM [facility] Calcium 8.1(L) 8.5 - 10.5 mg/dL 06/14/2024 1:49 AM [facility] Est Glomerular Filtration Rate - Male 120 mL/min/1. 73 m?? 06/14/2024 1:49 AM [facility] Comment: This patient's estimated GFR [...] ORDERABLES Performing Organization Address City/[facility] Co de Phone Number [facility] [place] [place] [address] * (ABNORMAL) Osmolality (06/14/2024 1:03 AM EST) Osmolality 259(L) 275 - 295 mOsm/kg 06/14/2024 1:40 AM EST [facility] Blood VENOUS BLOOD SPECIMEN / Unknown Venipuncture / Unknown 06/14/2024 1:03 AM EST 06/14/2024 1:08 AM EST Mariola Alfred MD CHEMISTRY ORDERABLES Performing Organization Address City/[facility] Co de Phone Number [facility] [place] [address] * T3 Total (06/14/2024 1:03 AM EST) T3 Total 87 80 - 200 ng/dL 06/14/2024 1:46 AM EST [facility] Blood VENOUS BLOOD SPECIMEN / Unknown Venipuncture / Unknown 06/14/2024 1:03 AM EST 06/14/2024 1:08 AM EST Mariola Alfred MD CHEMISTRY ORDERABLES Performing Organization Address City/[facility]/ZIP Co de Phone Number [facility] [place] [address] * T4, free (06/14/2024 1:03 AM EST) Free T4 1.37 0.93 - 1.70 ng/dL 06/14/2024 1:46 AM EST [facility] Blood VENOUS BLOOD SPECIMEN / Unknown Venipuncture / Unknown 06/14/2024 1:03 AM EST 06/14/2024 1:08 AM EST Mariola Alfred MD CHEMISTRY ORDERABLES Performing Organization Address City/[facility]/ZIP Co de Phone Number [facility] [place] [address] * Zonisamide level (06/14/2024 1:03 AM EST) Zonisamide Lvl November 17 10 - 40 mcg/mL 06/16/2024 9:22 PM EST [facility] [place] Comment: ADDITIONAL INFORMATION This test was developed and its performance characteristics determined by [facility] in a manner consistent with CLIA requirements. This test has not been cleared or approved by the U.S. Food and Drug Administration. Blood VENOUS BLOOD SPECIMEN / Unknown Venipuncture / Unknown 06/14/2024 1:03 AM EST 06/14/2024 1:08 AM EST Narrative REF LAB [facility] 06/16/2024 9:22 PM EST Test Performed by: [facility] - [place] [id number] Flipping Machine Operator: Xavier Velásquez Ph.D.; CLIA# [id number] Mariola Alfred MD LAB SEND OUT ORDERAB LES Performing Organization Address City/[facility]/ZIP Co de Phone Number RE[facility] LAB [id number] [place] [address] documented in this encounter Visit Diagnoses Not [...] Vomiting documented in this encounter Care Teams Mesh Man Relationship Specialty Start Date End Date Ren Vaz MD PCP - General Family Medicine 06/02/20 06/17/24 documented as of this encounter
--- OUTSIDE RECORDS SUMMARY | 2024-08-06 01:12 | XMS_ITS | Encounter Summary ---
Author Organization [facility] Address [facility] [place] [address] Care Team Providers Care Geological E Logger Name Role Phone Ren Vaz MD Primary Care Provider [phone] Reason for Referral * Consultation (Routine) - Closed Specialty Diagnoses / Procedures Referred By Duyen bui Referred To Contact Maxillofacial Surgery Diagnoses Extraction of tooth needed Marques Hu DMD [address] [place] [address] Joe Nguyen PA [facility] [place] [address] Referral ID Status Reason Start Date Expiration Date V isits Requested Visits Authorized [id number] Closed Consult, Test & Treat 08/17/2021 08/17/2022 1 1 Encounter Details Date Type Department Care Team (Latest Contact Info) Description 08/17/2021 Transcribe Orders [place] [address] Gabriela Sandra Extraction of tooth needed Social [...] needed documented in this encounter Care Teams Geological E Logger Relationship Specialty Start Date End Date Ren Vaz MD PCP - General Family Medicine 06/02/20 06/17/24 documented as of this encounter
--- OUTSIDE RECORDS SUMMARY | 2024-08-06 01:12 | XMS_ITS | Encounter Summary ---
Author Organization [facility] Address [facility] [place] [address] Care Team Providers Care Procurement Manager Name Role Phone Jimbo More Primary Care Provider + Reason for Visit * Reason Onset Date Comments Appointment 06/16/2024 Encounter Details Date Type Department Care Team (Late st Contact Info) Description 06/16/2024 [place]phone [place] [phone] Lauren Ruby MD [facility] [place] [address] Appointment Social History Tobacco Use Types Packs/Day Years Used Date Smoking Tobacco: Never Smokeless Tobacco: Never Alcohol Use Standard Drinks/Week Comments No 0 (1 standard drink = 0.6 oz pur e alcohol) [facility] Utilities Answer Date Recorded In the past 12 months has e [employer], gas, oil, or water [employer] threatened to shut off services in your [...] the discharge paperwork. Lauren Ruby MD P [facility] [place] Jared, Please help me schedule a follow [...] on filedocumented in this encounter Care Teams Procurement Manager Relationship Specialty Start Date End Date Jimbo More PA [place] [address] PCP - General Internal Medicine 06/18/24 documented as of this encounter
--- OUTSIDE RECORDS SUMMARY | 2024-08-06 01:13 | XMS_ITS | Encounter Summary ---
Author Organization [facility] [place] [address] Care Team Providers Care Gas Pumping Station Helper Name Role Phone CinthyaeseLc Primary Care Provider [phone] Reason for Visit * Auth/Cert Specialty Diagnoses / Procedures Referred By Duyen t Referred To Contact Diagnoses Acetabular fracture Left acetabulum fracture Procedures @OPEN TREATMENT, ACETABULAR FX (WRVU 25.41) Referral ID Status Reason Start Date Expiration Date Visits Re quested Visits Authorized [id number] 1 1 Encounter Details Date Type Department Care Team (Late st Contact Info) Description 10/20/2017 11:43 [place] [address] Asia Mota MD [facility] [place] [address] Marvin Vasquez CRNA Anesthesia Record Procedure Summary [...] 0939; metacarpal vein (top of hand), left; [id number] catheter system; 20 gauge; distraction, intradermal injection, [...] Mota MD - 10/21/2017 7:39 AM EDT [facility] Department of Anesthesiology Post-procedure Note Patient: Miguel Angel Burgos Procedure Summary Date Anesthesia Start Anesthesia Stop Room / Location 10/20/17 1143 1203 [facility] ADULT RADIOLOGY / [facility] [place] Procedure Diagnosis Surgeon Responsible Provider CT (N/A ) (Broken tooth) RESOURCE, ANESTHESIA-Asia Santiago MD All Anesthesia Providers: Anesthesiologist: Asia Mota MD SPEECH INSTRUCTOR: Echo Lema CRNA Most Recent Vitals: 10/20/17 [...] History: Procedure Laterality Date ??? PRO OPEN SHRINK PIT OPERATOR FIX ACETABULAR FX Left 09/04/2017 @OPEN TREATMENT, ACETABULAR FX (WRVU 25.41) performed by Amy Lance MD at [facility] MAIN OR Social History Substance [...] discussed with legal guardian. Plan discussed with SPEECH INSTRUCTOR. PAT Staff Note documented in this encounter [...] /hr documented in this encounter Care Teams Gas Pumping Station Helper Relationship Specialty Start Date End Date Lc Venegas PA [address] [place] [address] PCP - General General Internal Medicine 09/03/17 documented as of this encounter
--- OUTSIDE RECORDS SUMMARY | 2024-08-06 01:13 | XMS_ITS | Encounter Summary ---
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 * Consultation (Routine) - Specialty Diagnoses / Procedures Referred By Duyen bui Referred To Contact Endocrinology Diagnoses panhypopituitarism Lc Venegas PA [address] [place] [address] [facility] Endocrinology [address] [place] [address] Referral ID Status Reason Start Date Expiration Date V isits Requested Visits Authorized [id number] Consult, Test & Treat [facility] 04/14/2018 04/14/2019 6 6 Encounter Details Date Type Department Care Team (Latest Contact Info) Description 07/15/2018 11:00 AM EST Office [place] [address] Christopher Hess MD [facility] [place] [address] Mariola Thomson MD [facility] [place] [address] Hypopituitarism (Primary Dx) Social History [...] seizure disorder. Miguel Angel was admitted to [facility] from 09/02/2017 until 03/12/2018 due to a [...] energy for him. Social Hx: Lives in [facility] [phone] Lala Posada Sister is DOPA Meds: Current [...] flexeril TID Neurological: Positive for headaches (per director motion picture). Objective:BP 116/79 (BP Location (NBP): Left arm, [...] his fluid restriction. I have asked his director motion picture Lala luu me know if his urinary [...] to q2 or q3 months with NAKIA Cifuenets -continue levothyroxine 75mcg qd -continue hydrocortisone 20mg [...] locally Case discussed and seen with staff Penal Officer, Christopher Hess MD. Of note, pt previously followed with Wilder Dejuan at [facility]- will route this note to him as pt's care providers wish him to follow here since it is closer for them in his new home. Route to NAKIA Cifuentes and Dejuan. F/u in 1 year or sooner for any changes whatsoever. Will f/u DEXA over the telephone as it is hard for them to get here. Mariola Thomson MD PGY-4 [facility] Endocrinology Fellow Pager #[phone] * Christopher Hess MD - 07/15/2018 11:00 [...] Free T4 1.24 0.93 - 1.70 ng/dL [facility] Blood specimen (specimen) 07/15/2018 12:49 PM EST 07/15/2018 12:55 PM EST Narrative Resulting Agency Comment Spec In Lab Christopher Hess MD CHEMISTRY ORDERABLES [facility] [place] [address] * (ABNORMAL) Basic Metabolic Panel (non-fasting) (07/15/2018 12:49 PM EST) Glucose 105 65 - 199 mg/dL [facility] Comment:Diabetes: >=200 mg/d L plus symptoms Blood Urea Nitrogen 16 10 - 20 mg/dL [facility] Creatinine 0.83 0.80 - 1.50 mg/dL [facility] Sodium 138 135 - 145 mmol/L [facility] Potassium 3.9 3.5 - 5.0 mmol/L [facility] Comment: Please note: ??Patients with WBC >100,000 may have falsely elevated Potassium levels. ??For accurate Potassium quantification in these patients send serum separator tube (gold top) for subsequent determinations. ??Contact the Clinical Chemistry Laboratory if there are any questions. Chloride 104 98 - 107 mmol/L [facility] Carbon Dioxide 19(L) 22 - 31 mmol/L [facility] Anion Gap 15 5 - 15 mmol/L [facility] Calcium 9.2 8.5 - 10.5 mg/dL [facility] Est Glomerular Filtration Rate 120 >=60 mL/min/1. 73 m?? [facility] Comment: The eGFR was calculated using the CKD-EPI equation. As with all creatinine based estimates of kidney function, eGFR values calculated with the CKD-EPI equation are not accurate in patients with acute kidney failure, extremes of body mass or the acutely ill. http://Druidly/DHnkf eGFR 139 >=60 mL/min/1. 73 m?? [facility] Comment: The eGFR was calculated using the CKD-EPI equation. As with all creatinine based estimates of kidney function, eGFR values calculated with the CKD-EPI equation are not accurate in patients with acute kidney failure, extremes of body mass or the acutely ill. http://Druidly/[facility] Blood specimen (specimen) 07/15/2018 12:49 PM EST 07/15/2018 12:55 PM EST Narrative Resulting Agency Comment Spec In Lab Christopher Hess MD CHEMISTRY ORDERABLES Performing Organization Address [facility]/ZIP Co de Phone Number [facility] [place] [address] * Vitamin D, 25-Hydroxy (07/15/2018 12:49 PM EST) Vitamin D Total 25 OH 32 30 - 100 ng/mL [facility] Comment: Deficient <10 ng/mL Insufficient 10 to 29 ng/mL Sufficient 30 to 100 ng/mL Potential Intoxication >100 ng/mL According to the [place] National Osteoporosis Foundation, Vitamin D concentrations >30 ng/mL are sufficient to protect bone health. ??The National Kidney Foundation has similarly stated that patients with Vitamin D concentrations <30ng/mL should be considered to be insufficient or deficient. http://Superfly.Owl biomedical/nkf-guidelines http://Druidly/nejm-VitD The [employer] i[employer] Vitamin D Immunoassay detects both 25-OH Vitamin D2 and 25-OH Vitamin D3, but only a total Vitamin D concentration is reported. Blood specimen (specimen) 07/15/2018 12:49 PM EST 07/16/2018 7:49 AM EST Narrative Resulting Agency Comment Spec In Lab Christopher Hess MD CHEMISTRY ORDERABLES Performing Organization Address [facility]/ZIP Co de Phone Number [facility] [place] [address] documented in this encounter Visit Diagnoses Diagnosis Hypopituitarism- Primary Panhypopituitarism documented in this encounter Care Teams Therapy Director Relationship Specialty Start Date End Date Lc Venegas PA [address] [place] [address] PCP - General General Internal Medicine 09/03/17 documented as of this encounter
--- OUTSIDE RECORDS SUMMARY | 2024-08-06 01:13 | XMS_ITS | Encounter Summary ---
Author Organization [facility] Address [facility] [place] [address] Care Team Providers Care Applications Sales Consultant Name Role Phone Chadjonathan Lc YEE Primary Care Provider [phone] Encounter Details Date Type Department Care Team (Late st Contact Info) Description 09/09/2018 Tele[place] [phone] Thuy Chu RN Social History Tobacco Use [...] - 09/09/2018 11:06 AM EST Lala left [facility] [place] requesting call back for instruction because pt is really sick today. R/c and lm for Lala to call back. Rcvd call back from Lala. Pt vomited this AM, not peeing consistently, lips blue, inaccurate temp readings (widely variable). She is taking pt to [facility] ED in [facility] (this call taking place at 11:14) and Lala would like Dr Thomson to call the ED there to consult and advise. Endocrinology Telephone Note: Called [facility] ED MD Spoke with MD there, warned them about his adrenal insufficiency and advised to stress dose if there is any concern whatsoever for hypOtension. If sodium derangements are present, will need to be admitted possibly for DDAVP adjustments. Provided my pager #. Mariola Thomson MD PGY-4 [facility] Endocrinology Fellow Pager #[phone] documented in this encounter Plan of Treatment Not on file documented as of this encounter Visit Diagnoses Not on filedocumented in this encounter Care Teams Applications Sales Consultant Relationship Specialty Start Date End Date Lc Venegas PA [address] [place] [address] PCP - General General Internal Medicine 09/03/17 documented as of this encounter
--- OUTSIDE RECORDS SUMMARY | 2024-08-06 01:13 | XMS_ITS | Encounter Summary ---
Author Organization [facility] Address [facility] [place] [address] Care Team Providers Care Painter Apprentice Name Role Phone ChadjonathanLc Primary Care Provider [phone] Encounter Details Date Type Department Care Team (Late st Contact Info) Description 09/09/2018 Telephone [place] [address] Mariola Thomson MD [facility] [place] [address] Social History Tobacco Use Types Packs/Day Years [...] to admit pt. Mariola Thomson MD PGY-4 [facility] Endocrinology Fellow Pager #[phone] documented in this encounter Plan of Treatment Not on file documented as of this encounter Visit Diagnoses Not on filedocumented in this encounter Care Teams Painter Apprentice Relationship Specialty Start Date End Date Lc Venegas PA [address] [place] [address] PCP - General General Internal Medicine 09/03/17 documented as of this encounter
--- OUTSIDE RECORDS SUMMARY | 2024-08-06 01:13 | XMS_ITS | Encounter Summary ---
[place] [address] Care Team Providers Care Admissions Gate Attendant Name Role Phone Lc Venegas Primary Care Provider [phone] Encounter Details Date Type Department Care Team (Late st Contact Info) Description 06/11/2018 Telephone [place] [phone] Mariola Gipson Social History Tobacco Use Types [...] on filedocumented in this encounter Care Teams Admissions Gate Attendant Relationship Specialty Start Date End Date Lc Venegas PA [address] [place] [address] PCP - General General Internal Medicine 09/03/17 documented as of this encounter
--- OUTSIDE RECORDS SUMMARY | 2024-08-06 01:13 | XMS_ITS | Encounter Summary ---
Author Organization Formerly [facility] Address [facility] [place] [address] Care Team Providers Care Regional Tanker Truck Driver Name Role Phone Chadjonathan Lc YEE Primary Care Provider [phone] Encounter Details Date Type Department Care Team (Late st Contact Info) Description 03/21/2019 2:40 PM EDT Ancillary Procedure Radiology Library at [facility] [place] [address] Pedro Colon MD [facility] [place] [address] Social History Tobacco Use Types Packs/Day Years [...] CT Head (03/21/2019 2:37 PM EDT) Narrative [facility] - 03/21/2019 2:37 PM EDT This exam is auto-finalizing. It's purpose is for storage only. Pedro Colon MD IMG FILM LIBRARY O RDERABLES [place], [place] documented in this encounter Visit Diagnoses Not on filedocumented in this encounter Care Teams Regional Tanker Truck Driver Relationship Specialty Start Date End Date Lc Venegas PA [address] [place] [address] PCP - General General Internal Medicine 09/03/17 documented as of this encounter
--- OUTSIDE RECORDS SUMMARY | 2024-08-06 01:13 | XMS_ITS | Encounter Summary ---
[place] [address] Care Team Providers Care Desk Manager Name Role Phone Lc Venegas Primary Care Provider [phone] Encounter Details Date Type Department Care Team (Latest Contact Info) Description 07/15/2018 12:40 PM EST Laboratory Appointment Lab [address] [place] [address] Hypopituitarism Social History Tobacco Use Types Packs/Day [...] be considered to be insufficient or deficient. [email or web address]-guidelines [email or web address]/nejm-VitD The IDS iSYS Vitamin D Immunoassay detects both 25-OH Vitamin D2 and 25-OH Vitamin D3, but only a total Vitamin D concentration is reported. Blood specimen (specimen) 07/15/2018 12:49 PM EST 07/16/2018 7:49 AM EST Narrative Resulting Agency Comment Spec In Lab Christopher Hess MD CHEMISTRY ORDERABLES Performing Organization Address City/State/[facility] Co de Phone Number [facility] [place] [phone] * (ABNORMAL) Basic Metabolic Panel (non-fasting) (07/15/2018 12:49 PM EST) Glucose 105 65 - 199 mg/dL [facility] [...] of body mass or the acutely ill. [email or web address] ADAnkf eGFR 139 >=60 mL/min/1. 73 m?? [facility] Comment: The eGFR was calculated using the CKD-EPI equation. As with all creatinine based estimates of kidney function, eGFR values calculated with the CKD-EPI equation are not accurate in patients with acute kidney failure, extremes of body mass or the acutely ill. [email or web address] Blood specimen (specimen) 07/15/2018 12:49 PM EST 07/15/2018 12:55 PM EST Narrative Resulting Agency Comment Spec In Lab Christopher Hess MD CHEMISTRY ORDERABLES [facility] [place] [address] * T4, free (07/15/2018 12:49 PM EST) Free T4 1.24 0.93 - 1.70 ng/dL [facility] Blood specimen (specimen) 07/15/2018 12:49 PM EST 07/15/2018 12:55 PM EST Narrative Resulting Agency Comment Spec In Lab Christopher Hess MD CHEMISTRY ORDERABLES Performing Organization Address City/[facility]/ZIP Co de Phone Number [facility] [place] [address] documented in this encounter Visit Diagnoses Diagnosis Hypopituitarism Panhypopituitarism documented in this encounter Care Teams Desk Manager Relationship Specialty Start Date End Date Lc Venegas PA [address] [place] [address] PCP - General General Internal Medicine 09/03/17 documented as of this encounter
--- OUTSIDE RECORDS SUMMARY | 2024-08-06 01:13 | XMS_ITS | Encounter Summary ---
Author Organization [facility] Address [address] [facility] [place] [address] Care Team Providers Care Frame Stripper And Crusher Name Role Phone Subha Colon MECHANICAL EXPERT Primary Care Provider [phone] Reason for Referral * Diagnostic Test (Routine) - Closed Specialty Diagnoses / Procedures Referred By Contac t Referred To Contact Radiology Diagnoses Growth hormone deficiency Fracture Procedures DXA Central Spine, Hip, and/or Whole Body (Generic) Wilder Zaidi DO [address] [place] [address] [facility] Xray [address] [place] [address] Referral ID Status Reason Start Date Expiration Date V isits Requested Visits Authorized [id number] Closed Specialty Service Requested 05/26/2019 05/25/2020 1 1 Reason for Visit * Diagnostic Test (Routine) - Closed Specialty Diagnoses / Procedures Referred By Contac t Referred To Contact Radiology Diagnoses Growth hormone deficiency Fracture Procedures DXA Central Spine, Hip, and/or Whole Body (Generic) Wilder Zaidi DO [address] [place] [address] [facility] Rad Xray [address] [place] [address] Referral ID Status Reason Start Date Expiration Date V isits Requested Visits Authorized [id number] Closed Specialty Service Requested 05/26/2019 05/25/2020 1 1 Encounter Details Date Type Department Care Team (Latest Contact Info) Description 06/21/2019 10:30 AM EST - 06/21/2019 11:59 PM [facility] Hospital Encounter XRay at [address] [place] [address] Wilder Zaidi, DO [address] [place] [address] Growth hormone deficiency; Fracture Discharge Disposition: [...] BMD measurements and plots are available in [facility] under the imaging tab. Paper copies will be sent to providers without [employer] access. If you have received this report without the data sheet and do not have access to vChatter, please contact Radiology Parquet Floor Layer at [phone] Friday thru Friday 8am-4pm. ?? Thank you for letting us participate in the care of this patient. For questions regarding this report, please contact the number below. ? Narrative 06/24/2019 7:15 PM EST EXAMINATION: DXA CENTRAL SPINE, HIP, AND/OR WHOLE BODY (GENERIC) CLINICAL HISTORY: prison steroid use, low testosterone, history of fracture, per ordering provider TECHNIQUE: Scans were acquired at the lumbar spine, and right hip. Patient has hardware and left hip COMPARISON: none FINDINGS: Lowest Z-score at a diagnostic region of interest: Z-score: -2.3, ALLISON: Lumbar spine Procedure Note Park Dalal MD - 06/24/2019 EXAMINATION: DXA CENTRAL SPINE, HIP, AND/OR WHOLE BODY (GENERIC) CLINICAL HISTORY: prison steroid use, low testosterone, history offracture, per [...] BMD measurements and plots are available in [employer]under the imaging tab. Paper copies will be sent to providers without [employer] access.If you have received this report without the data sheet and do not haveaccess to E-, please contact Radiology Parquet Floor Layer at [phone] Friday thrrid 8am-4pm. Thank you for letting us participate in the care of this patient. Forquestions regarding this report, please contact the number below. Wilder Zaidi DO IMG DEXA ORDERABLES documented in this encounter Visit Diagnoses Diagnosis Growth hormone deficiency Pituitary dwarfism Fracture Closed fracture of unspecified bone documented in this encounter Care Teams Frame Stripper And Crusher Relationship Specialty Start Date End Date Subha Colon APRN [address] [place] [address] PCP - General Family Medicine 04/30/19 06/01/20 documented as of this encounter
--- OUTSIDE RECORDS SUMMARY | 2024-08-06 01:13 | XMS_ITS | Encounter Summary ---
[place] [address] Care Team Providers Care Senior Instructor Name Role Phone Lc Venegas Primary Care Provider [phone] Encounter Details Date Type Department Care Team (Late st Contact Info) Description 09/11/2018 Telephone [place] [phone] Thuy Chu RN Social History Tobacco Use [...] Msg from Jessika Woodall NP at [facility], left msg that pt is doing well, possible aspiration pneumonia. Would like call back on how to proceed with steroid dosing and taper. [phone] and have hospitalist paged. documented in this encounter Plan of Treatment Not on file documented as of this encounter Visit Diagnoses Not on filedocumented in this encounter Care Teams Senior Instructor Relationship Specialty Start Date End Date Lc Venegas PA [address] [place] [address] PCP - General General Internal Medicine 09/03/17 documented as of this encounter
--- OUTSIDE RECORDS SUMMARY | 2024-08-06 01:13 | XMS_ITS | Encounter Summary ---
Author Organization [facility] Address [facility] [place] [address] Care Team Providers Care Manager Field Investigations Name Role Phone Lc Venegas Primary Care Provider [phone] Encounter Details Date Type Department Care Team (Late st Contact Info) Description 09/11/2018 Telephone [place] [address] Mariola Thomson MD [facility] [place] [address] Social History Tobacco Use Types Packs/Day Years [...] Note: Msg from Jessika Woodall NP at [facility], left msg that pt is doing well, possible aspiration pneumonia. Would like call back on how to proceed with steroid dosing and taper. [phone] and have hospitalist paged. Spoke with hospitalist who reported that pt was d/c Tripled AM dose, doubled afternoon dose for first day. 60mg -->40mg 2 days in the AM, 15mg in the afternoon 2 days 20mg 10mg was not febrile at d/c, back to baseline off acetaminophen Suspect aspiration pna Mariola Thomson MD PGY-4 [facility] Endocrinology Fellow Pager #[phone] documented in this encounter Plan of Treatment Not on file documented as of this encounter Visit Diagnoses Not on filedocumented in this encounter Care Teams Manager Field Investigations Relationship Specialty Start Date End Date Lc Venegas PA [address] [place] [address] PCP - General General Internal Medicine 09/03/17 documented as of this encounter
--- OUTSIDE RECORDS SUMMARY | 2024-08-06 01:13 | XMS_ITS | Encounter Summary ---
Author Organization [facility] [place] [address] Care Team Providers Care Fuel Buyer Name Role Phone Chadjonathan Lc YEE Primary Care Provider [phone] Encounter Details Date Type Department Care Team (Late st Contact Info) Description 03/22/2019 Telephone [place] [phone] Heidi Yi MD Social History Tobacco Use [...] 03/22/2019 10:05 AM EDT Patient seen at [facility] for lethargy, workup negative so far [...] attending Dr. Morris. Heidi Yi MD PGY-4 [facility] Endocrinology Fellow Pager #[phone] documented in this encounter Plan of Treatment Not on file documented as of this encounter Visit Diagnoses Not on filedocumented in this encounter Care Teams Fuel Buyer Relationship Specialty Start Date End Date Lc Venegas PA [address] [place] [address] PCP - General General Internal Medicine 09/03/17 documented as of this encounter
--- OUTSIDE RECORDS SUMMARY | 2024-08-06 01:17 | XMS_ITS | Encounter Summary ---
Author Organization [facility] Address [facility] [place] [address] Care Team Providers Care Cart Pusher Name Role Phone Corin Skinner MD Primary Care Provider [phone] Encounter Details Date Type Department Care Team (Latest Contact Info) Description 09/02/2017 12:20 AM EST - 09/02/2017 9:22 PM EST Hospital Encounter Radiology Library at [facility] [place] [address] Neo Gar MD Discharge Disposition: Home Social [...] MD IMG FILM LIBRARY OR DERABLES [place], [place] documented in this encounter Visit Diagnoses Not on filedocumented in this encounter Care Teams Cart Pusher Relationship Specialty Start Date End Date Corin Skinner MD PCP - General 05/29/10 09/02/17 documented as of this encounter
--- OUTSIDE RECORDS SUMMARY | 2024-08-06 01:17 | XMS_ITS | Encounter Summary ---
Author Organization [facility] Address [facility] [place] [address] Care Team Providers Care Automobile Body Customizer Name Role Phone Corin Skinner MD Primary Care Provider [phone] Encounter Details Date Type Department Care Team (Latest Contact Info) Description 09/02/2017 12:10 AM EST - 09/02/2017 12:14 AM EST Hospital Encounter Radiology Library at [facility] [place] [address] Neo Gar MD Discharge Disposition: Home Social [...] MD IMG FILM LIBRARY OR DERABLES [place], [place] documented in this encounter Visit Diagnoses Not on filedocumented in this encounter Care Teams Automobile Body Customizer Relationship Specialty Start Date End Date Corin Skinner MD PCP - General 05/29/10 09/02/17 documented as of this encounter
--- OUTSIDE RECORDS SUMMARY | 2024-08-06 01:17 | XMS_ITS | Encounter Summary ---
[place] [address] Care Team Providers Care Airplane Cleaner Name Role Phone CinthyaeseLc Primary Care Provider [phone] Reason for Visit * Auth/Cert Specialty Diagnoses / Procedures Referred By Duyen t Referred To Contact Diagnoses Acetabular fracture Left acetabulum fracture Procedures @OPEN TREATMENT, ACETABULAR FX (WRVU 25.41) Referral ID Status Reason Start Date Expiration Date Visits Re quested Visits Authorized [id number] 1 1 Encounter Details Date Type Department Care Team (Late st Contact Info) Description 09/04/2017 9:22 AM EST Anesthesia [place] [address] [facility] [place] [address] Irving Loja MD Anesthesia Record Procedure Summary [...] without issue. VSS. Full report given to HVAC ENGINEERING TECHNICIAN. Meds Name Total fentaNYL 100 mcg IV [...] 1500; median vein (underside of arm), right; fyso-nvo-ynzzix catheter system; 20 gauge; OSH CAR MOVER; 09/09/17; 1999 (pt pulled out. aware.) 09/02/17 [...] Time: 1257 09/04/17 0931 by Cele Carrington TAB CUTTING MACHINE OPERATOR 09/04/17 1257 by Delfino Chavez MD (RETIRED) Peripheral IV Line - Single Lumen 09/04/17; 0940; metacarpal vein (top of hand), left; wyzd-rkr-tcumed catheter system; 16 gauge; MD Scott; 0; [...] Chavez MD - 09/04/2017 2:08 PM EST [facility] Department of Anesthesiology Post-procedure [...] All Anesthesia Providers: Anesthesiologist: Delfino Chavez MD TAB CUTTING MACHINE OPERATOR: Cele Fabian CRNA Most Recent Vitals: 09/04/17 [...] discussed with legal guardian. Plan discussed with TAB CUTTING MACHINE OPERATOR. PAT Staff Note documented in this encounter [...] mg/mL bolus injection (Anesthesia) PRN, Starting on J Oann 09/04/17 at 0929, Until Jo Ann 09/04/17 [...] Units documented in this encounter Care Teams Airplane Cleaner Relationship Specialty Start Date End Date Lc Venegas PA [address] [place] [address] PCP - General General Internal Medicine 09/03/17 documented as of this encounter
--- OUTSIDE RECORDS SUMMARY | 2024-08-06 01:17 | XMS_ITS | Encounter Summary ---
Author Organization [facility] Address [facility] [place] [address] Care Team Providers Care Pharmacy Services Director Name Role Phone Lc Venegas Primary Care Provider [phone] Reason for Visit * Reason Comments Hospital Transfer hip fracture from [facility] * Auth/Cert Specialty Diagnoses / Procedures Referred By Duyen bui Referred To Contact Diagnoses Acetabular fracture Left acetabulum fracture Procedures @OPEN TREATMENT, ACETABULAR FX (WRVU 25.41) Referral ID Status Reason Start Date Expiration Date Visits Re quested Visits Authorized [id number] 1 1 Encounter Details Date Type Department Care Team (Late st Contact Info) Description 09/04/2017 9:58 AM EST - 09/04/2017 12:56 PM EST Surgery [place] [address] Amy Lance MD [facility] [place] [address] @OPEN TREATMENT, ACETABULAR FX (WRVU 25.41) Social [...] level in 3 days after discharge from [facility], if out of range, please [facility]inology for further instructions regarding [...] MD): This is a 27 y.o. male long term resident with a history of panhypopituitarism, DI, [...] over the phone, so she had his tram driver take him to the hospital. At [facility], when asked about pain he would point to his left knee. Ultimately, CT was performed which showed acute leftacetabular fracture and osteopenia. He received several doses of morphine, dilaudid, and ativan forpain and sedation prior to transfer. ?? He has not had a seizure for about 4 years. No recent med changes according to Bettina. Labs at [facility] remarkable for Na 132. In the ER [...] by orthopedics. Due to restrictions in his long term environment, he could not return home to [...] to Hosp-Admission (Current) from 09/02/2017 in [facility] Weight 98.4 kg (216 lb 14.4 [...] to navigate stairs Questions: Vendor Name/Contact information: [facility] Bed (Outpatient) [[id number] Custom] As directed Process Instructions: Scheduling Instructions: Comments: Semi-electric Hospital Bed- The patient has a medical condition which requires positioning of the body in ways not feasible with an ordinary bed and requires frequent changes in body position and/or has an immediate need for a change in body position. Questions: Vendor Name/Contact information: [facility] Wheelchair [EQ139 Custom] As directed Process Instructions: [...] please contact your inpatient physician through the [facility] Sewer Line Photo Inspector . Issues afterhours and on weekends will [...] Pt is being brought by ambulance to [facility]. Pt did not have IV access. Pt AVS, discharge summary, and medication were sent to facility. Called facility to give report. * Lauren Gloria - 03/12/2018 1:25 PM EDT Patient was transported today [facility] at 1330 to [facility]. * Tricia Gerber RN - 03/12/2018 1:25 PM EDT Patient being discharged to [facility] today via ambulance. Spoke with sister Bettina- she was in agreement with plan. [facility] will be delivering all needed DME tomorrow morning apx. 9am. Kidney Trimmer has reviewed DME list with Asael at [facility] to determine what DME must be had today to ensure a safe transfer. It was determined the only have to item for today is the wheelchair. [facility] Wic Site Coordinator has given approval for [facility] to provide one of ours until the one from [facility] arrives (Asael to coordinate return with insurance writer). Bhakti Riojas from [facility] has picked up all meds and depends from pharmacy. Nursing staff has provided Bhakti with the testosterone gel, bed guillen and urinal. She also has hard copies of discharge summary and AVS. No other discharge needs have been identified. Tricia Gerber RN Case Design And Sales Consultant of Care Management [email or web address] Pager: [phone] * Tricia Gerber RN - 03/12/2018 1:25 PM EDT Received call from Bhakti Snachesfeng at [facility] . Bhakti requests referral to: [facility]gencies [facility]. PHONE: [phone] FAX: [phone] Patient lives at: [address] [place] [address] [address] [facility] [address] Phone [phone] Fax [phone] Expected date of discharge: 03-12-18. Referral routed to the Auto Self Service Station Attendant for matching with agency/vendor and to provide any required information. Tricia Gerber RN Case Design And Sales Consultant of Care Management [email or web address] Pager: [phone] * Dario Gallegos MD - 03/12/2018 11:00 [...] spent >30 minutes (Day of Discharge Code 46412) involved in the final examination of the patient, discussion of the hospital stay, instructions for continuing care to all relevant caregivers, and preparation of discharge records, prescriptions and referral forms. Plans ? Discharge to [facility] ? Follow-up scheduled with pscychiatry ? Please see the Discharge Summary for complete details of any medication changes and additional plans. * Tricia Gerber RN - 03/12/2018 8:49 AM EDT Received voicemail from Bettina Mason (Guardian/sister). States she is aware that Miguel Angel will be transferred to [facility] Address [address] [place] [address] [address] [facility] [address] Tricia Gerber RN Case Design And Sales Consultant of Care Management [email or web address] Pager: [phone] * Tricia Gerber RN - 03/11/2018 4:46 PM EDT Plan for discharge tomorrow 03-12-18: - Scripts have been ordered, filled, and ready for pickle solution maker at [facility] Outpatient Pharmacy (except those noted below) o Depends were ordered but not covered by insurance, they are available at [facility] pharmacy for purchase o Testosterone cream requires a prior authorization, we have submitted for prior authorization. We will send him with tube that is currently being utilized in the hospital. - Urinal and bed guillen will be sent with R.B. upon discharge (if Bhakti wants to get these items from nurses station when she comes to pickle solution maker medications that is also an option) - Wheelchair, commode and hospital bed have been ordered through [facility]. Their [place] office will be delivering these items and have been given [facility] contact information for coordination of the delivery. - Ambulance has been confirmed for pick-up at 1:30pm - Discharge Summary o Hard copy will be sent with patient in envelope o Fax copy will also be sent to [phone] Called patients sister Bettina [phone] (work#1) she was gone for the day [phone] (cell) left voice mail [phone] (work#2) she was not scheduled today Tricia Gerber RN Case Design And Sales Consultant of Care Management [email or web address] Pager: [phone] * Echo Hanson RN - 03/11/2018 3:57 PM EDT Continuing to support complex d/c planning on behalf of care management. Received call back from [facility] INSTRUMENTAL TEACHER Kris Back, discussed with him the importance [...] advocated to transfer DS services to another [facility] where client's needs could have been met sooner. Also relayed concern about communication delays from [facility]. Recvd calls from Carissa Posada [phone] confirming patient's plan for d/c to [facility] tomorrow via ambulance, and that [facility] staff are visiting patient today to retrieve DME and medications to prepare patient for tomorrow. Recvd call from Rob defense attorney at [employer] to check patient status. Returned his call [phone] with update as above. Confirmed with primary RN LUCAS Clarke that DME, medications are ordered and in process of retrieval with [facility], and that ambulance will be arranged for early afternoon 03/12. Continue to be available for complex discharge planning needs on behalf of care mangement. Echo Hanson RN, MSN, ACM Bale Coverer - Care Management [phone] / [phone] pager [phone] [email or web address] * Dario Gallegos MD - 03/11/2018 12:14 [...] Awaiting placement Primary Care Provider: NAKIA Cifuentes [phone] Inpatient Certification Attestation: IPI Certification I certify [...] IPI criteria and is awaiting rehabilitation or long-term facility placement withactive referrals in process DARIO GALLEGOS MD Team Pager(MD Coverage 27/01): #[phone] 03/11/2018 * Dario Gallegos MD - 03/10/2018 [...] Awaiting placement Primary Care Provider: NAKIA Cifuentes [phone] Inpatient Certification Attestation: IPI Certification I certify that I am a D-H credentialed attending provider with admitting privileges and that the patient meets or has met medical necessity to require an inpatient IPI level of care meeting a minimumof two midnights or is on the [facility] inpatient only procedure list (status C) due to: the patient has met Inpatient IPI criteria and is awaiting rehabilitation or long-term facility placement withactive referrals in process DARIO GALLEGOS MD Team Pager(MD Coverage 27/01): #[phone] 03/10/2018 * Mavis Solo, REPRESENTATIVE PERSONAL SERVICE - 03/10/2018 3:27 PM EDT REPRESENTATIVE PERSONAL SERVICE received a return call from Asael Valdez at [facility]. Per Asael, after his evaluation of Miguel Angel on Friday, he feels that [facility]. Asael informed this worker that his role is to determine if the pt.'s needs can be met safely, and then he informs Naheed Estrella whether or not the needs can be met safely. Naheed then decides to offer the bed, and Asael informs Lillian (Miguel Angel's [facility] worker) who then coordinates the transfer. Asael confirmed that he has left a voice message for Lillian informing her that Miguel Angel is appropriate for their [place] bed, and that the bed is available. He is awaiting a response from Lillian. JAMSHID Enamorado Pager: [phone] * Mavis Solo MSW - 03/10/2018 2:02 PM EDT JAMSHID left a voice message for Asael Valdez (cell: [phone]) at [facility] ([facility]) to check on bed availability. Awaiting a return call. JAMSHID Enamorado Pager: [phone] * Jazzmine Charlton, BERNY - 03/10/2018 1:19 PM EDT Nutrition Progress Note Miguel Angel Mason is a 27 y.o. male Reason for intervention: Follow up Nutrition Recommendations: Recommend continuation of current diet order Consider daily multivitamin w/ minerals, Vit D and Calcium given correction steroid use Sitters please assist patient with [...] Orders Diet Daily Healthy Menu Choices/Cardiac diet ([facility]-Diet) 2000 mL FLUID Frequency: Effective Now Number of Occurrences: Until Specified Admit Weight: 86.64 kg Estimated body mass index is 31.12 kg/(m^2) as calculated from the following: Height as of this encounter: 177.8 cm (5' 10). Weight as of this encounter: 98.4 kg (216 lb 14.4 oz). [place] body weight: 73 kg (160 lb 15 [...] content of every food available. Discussed with TOP LIFT CUTTER attempting to encourage patient to eat lean proteins, low-fat dairy, complex carbohydrates, and avoid concentrated sweets and high-fat foods. Worked with TOP LIFT CUTTER to complete patient's breakfast lunch and dinner menus for tomorrow. Sitter reports that patient eats everything that he is and is not very picky. No further nutrition related questions or concerns at this time. ?? MARIYA Kat * Dina Ca - 03/09/2018 2:15 PM EDT [facility] Encounter Note Patient Name: Miguel Angel Mason : [id number] MR#: [id number] Admit Date: 09/02/2017 9:23 PM Hospital Day [...] Awaiting placement Primary Care Provider: NAKIA Cifuentes [phone] Inpatient Certification Attestation: IPI Certification I certify [...] IPI criteria and is awaiting rehabilitation or long-term facility placement withactive referrals in process Gabriella Maher MD Team Pager(MD Coverage 27/01): #[phone] 03/09/2018 * Gabriella Maher MD - 03/08/2018 8:01 AM EDT [facility] Medicine Attending Inpatient Daily Progress Note [...] dose (~7.5 mg prednisone equivalent) - recheck ART EDUCATION PROFESSOR today # SIRS, resolved - Workup [...] Awaiting placement Primary Care Provider: NAKIA Cifuentes [phone] Inpatient Certification Attestation: IPI Certification I certify [...] IPI criteria and is awaiting rehabilitation or long-term facility placement withactive referrals in process Gabriella Maher MD Team Pager(MD Coverage 27/01): #[phone] 03/08/2018 * Gabriella Maher MD - 03/07/2018 4:10 PM EDT [facility] Medicine Attending Inpatient Daily Progress Note [...] dose (~7.5 mg prednisone equivalent) - recheck ART EDUCATION PROFESSOR today # SIRS, resolved - Workup [...] Awaiting placement Primary Care Provider: NAKIA Cifuentes [phone] Inpatient Certification Attestation: IPI Certification I certify [...] IPI criteria and is awaiting rehabilitation or long-term facility placement withactive referrals in process Gabriella Maher MD Team Pager(MD Coverage 27/01): #[phone] 03/07/2018 * Echo Hanson, HEATHER - 03/06/2018 5:18 PM EDT Continuing to support complex discharge planning on behalf of care management. For additional care management dept discharge planning efforts, see notes. Recvd information that patient may have [facility] (vs [facility]) placement setup (equipped home and care team) and that patient's DS budget is under review by [facility] leadership. Called [facility] and left , received call back from Carissa Posada who confirmed that a plan has been proposed, including a lease agr eement and budget and it is awaiting leadership approval. She agrees to have [facility] leadership return call to share further details about lack of signoff. Call placed to [facility] [employer], gave update re: above to defense attorney Rob who is following hissituation. He plans to call pt's guardian (sister Bettina) to obtain approval to continue to work ontheir behalf, will call with updates. Call placed to [facility] Director for Disability Services [place] Justicezabrina to update with above information. She, too, will continue to advocate for [facility] to signoff on patient's budgetand clear the path to [place] [facility] [place] placement. HEATHER Clarke updated. Will continue to follow and advocate on patient's behalf. Will return 03/10. Echo Hanson, HEATEHR, MSN, ACM Bale Coverer - Care Management [phone] / [phone] pager [phone] [email or web address] * Tricia Gerber RN - 03/06/2018 4:56 PM EDT The patient/group sales representative has been provided a list of Home Health Agencies/DME vendors which servetheir preferred geographic area. A letter describing our affiliations was reviewed with them and they were educated about their right to choose where referrals are placed. Patient requests referral to [facility] for wheelchair and walker. Expected date of discharge: 03-10-18. Referral routed to the Auto Self Service Station Attendant for matching with agency/vendor and to provide any required information. Tricia Gerber RN Case Design And Sales Consultant of Care Management [email or web address] Pager: [phone] * Tricia Gerber RN - 03/06/2018 4:27 PM EDT Lillian Holcomb from [facility] Human Services and another group sales representative came to visit with Miguel Angel today and meet with [facility]. [facility] group sales representative Asael Courtney [phone] visited with patient, [facility] staff, and [facility] staff today. Charge nurse reviewed Miguel Angel's case/needs. [facility] to be in contact with [facility] on Saturday 03/10 regarding their tentative plan to accept. He was given pager number for attending should their psychiatrist have any questions regarding medications. We determined that patient will need wheelchair and walker for discharge. Kidney Trimmer will place order with [facility] for these items. Miguel Angel may also need hospital bed or rails added to bed at [facility]. Lashell discuss further with management at [facility] as bed rails may be considered a restraint and not allowed by the state. Lillian reports that she did speak with Bettina Mason (Guardian/sister), she is in agreement with plan and would like to be present at time of transfer. Case management will continue to follow and assist with discharge planning needs. Tricia Gerber RN Case Design And Sales Consultant of Care Management [email or web address] Pager: [phone] * Reba Linton MD - 03/06/2018 1:59 [...] molar - Non-urgent extraction as outpatient Diet [facility] Healthy Diet Discharge planning Awaiting placement, medically ready for discharge. CM working hard to secure placement Lines/Access None Morse catheter None DVT Prophylaxis None, patient is ambulatory Code status FULL Team Pager [phone] PCP NAKIA Cifuentes Attestation IPI Certification I [...] IPI criteria and is awaiting rehabilitation or long-term facility placement withactive referrals in process REBA LINTON MD * Tricia Gerber RN - 03/05/2018 5:36 PM EDT Called and spoke with Bettina Mason (Guardian/sister) [phone] (W). Reviewed details of meeting held today and plan for evaluation by [facility]. She reports that she would have [...] from whom she believes was Lillian from [facility]. States Lillian left hercell phone number and she wanted to call and talk to Lillian to learn more about [facility]. Miguel Angel gettingout is great news, but also very nerve wrecking. She agreed to call insurance writer back after talking with Lillian. Case management will continue to follow. Tricia Gerber RN Case Design And Sales Consultant of Care Management [email or web address] Pager: [phone] * Mavis Solo MSW - 03/05/2018 2:55 PM EDT Care Conference call held with Hilton Barker- copier technician, Tricia- Machine Stapler, Echo Canas Gore Cutter, Dr. Goldstein, this worker, and multiple staff at [facility], and Naheed Estrella from [facility] to discuss Miguel Angel's medical status, behavioral tendencies, and needs for [facility] placement. All questions from participating parties appeared to have been answered. Per Asael Ferrer from [facility] will be coming to to see [...] and assist as appropriate. JAMSHID Enamorado Pager: [phone] * Reba Linton MD - 03/05/2018 8:53 [...] molar - Non-urgent extraction as outpatient Diet [facility] Healthy Diet Discharge planning Awaiting placement, medically ready for discharge. CM working hard to secure placement Lines/Access None Morse catheter None DVT Prophylaxis None, patient is ambulatory Code status FULL Team Pager [phone] PCP NAKIA Cifuentes Attestation IPI Certification I [...] IPI criteria and is awaiting rehabilitation or long-term facility placement withactive referrals in process REBA LINTON MD * Shruti Lozoya, RN - 03/05/2018 2:05 AM EDT 03/03/18-03/04/18 [phone] Patient not wearing continuous masimo due to [...] to be medically ready and appropriate for long term/shared living provider. See recent nursing and provider notes for care needs. Communication ongoing with [facility] who is planning to arrange discharge situation for patient in [facility] with staff. [facility], as the [facility] crisis bed facilitation organization, isconsidering admitting patient to crisis bed shortterm with plan to transfer to [facility] setup. Recvd communication from [facility] they are now planning to do onsite visit to assess appropriateness ofcrisis bed placement vs gathering information about patient's needs and plan for discharge this week. [facility] will likely not be able to support transfer this week. Given patient's overall situation, crisis placement may not be therapeutic for patient as it can have frequent admits/discharges and disruptions for client, and he would endure another transition once a permanent placement is secured. Due to protracted planning with both [facility] and [facility], call placed to [facility] [employer] ([facility] organization for the Designated MH Agencies) Director of MH services (Prosper Carter) and Director of Dev Services ([place] Ballum) to review scenario with PHI redacted. [place] will be contacting Carissa Posada with [facility] to encourage increased communication of barriers to discharge. Both agreed with advocacy to [place] [employer] as well as informing patient's guardian that she does have the right to seek DS services in another [facility]. Call placed to [place] [employer] to general i farmworker Erlinda [phone] who has passed Guido's case along for review with their defense attorney. The main concern is protracted non-acute stay for individual with intellectual disabilities. Shared guardian contact information. Call placed to guardian Bettina STAFFORD left at her cell phone # to return call. Plan to update her andensure she is aware of [facility] [employer] as a resource as well as her option to [facility] DS [facility] the [facility]. PLAN: - conference call scheduled for 03/05 at 2pm with [facility] and staff - appreciate coordination by PRANEETH Garica d/ollie to shared living provider or crisis bed if approved by [facility] and/or [facility] - onsite visit by [facility] is the first step and they have not yet agreed to a date/time - continue to advocate for services and support as above Echo Hanson RN, MSN, [facility] Bale Coverer - Care Management [phone] / [phone] pager [phone] [email or web address] * Shruti Lozoya RN - 03/04/2018 4:01 AM EDT 03/03/18-03/04/18 [phone] Patient does not have continuous masimo monitor in place, pt does allow spot checks. The reason forno masimo is due to safety and pt's level of agitation (intermittent). Will continue to assess needfor continuous masimo and will continue spot checks with VS. * Reba Linton MD - 03/03/2018 4:52 PM EDT [facility] Medicine Attending Daily Progress Note Patient [...] molar - Non-urgent extraction as outpatient Diet [facility] Healthy Diet Discharge planning Awaiting placement, medically ready for discharge. CM working hard to secure placement Lines/Access None Morse catheter None DVT Prophylaxis None, patient is ambulatory Code status FULL Team Pager [phone] PCP NAKIA Cifuentes Attestation IPI Certification I [...] IPI criteria and is awaiting rehabilitation or long-term facility placement withactive referrals in process REBA LINTON MD * Echo Hanson RN - 03/03/2018 3:32 PM EDT Continuing to support discharge planning for patient on behalf of care management. Patient medically ready since early October awaiting d/c plan arrangements from [facility]. Patient unableto return to long term setting due to inability to navigate stairs. ZOYA [place] to [place] [facility] and a care team for him in a new residence. Email communication today with Carissa Posada, Chief Intellectual/Developmental Disabilities Services [facility] Human Services who is assisting with [...] anticipation of transition to crisis bed in [facility] with ZOYA support 2- 03/05 afternoon phone care conference with ZOYA and team (JAMSHID Dexter coordinating) to discuss daily care needs, meds and discharge transportation 3- discharge to crisis bed in [facility] in care of YULISANASEEM as patient comes from long term Anticipate discharge soon - unable to confirm date, likely during the week of 03/10. Care Management to continue to follow for d/c needs. Echo Hanson RN, MSN, ACM Bale Coverer - Care Management [phone] / [phone] pager [phone] [email or web address] * Felecia Moran RN - 03/03/2018 [...] Reason for intervention: Consult Nutrition Recommendations: Recommend [facility] heart healthy diet order to [...] Orders Diet Daily Healthy Menu Choices/Cardiac diet ([facility]-Diet) Frequency: Effective Now Number of Occurrences: Until Specified Admit Weight: 86.64 kg Estimated body mass index is 31.39 kg/(m^2) as calculated from the following: Height as of this encounter: 177.8 cm (5' 10). Weight as of this encounter: 99.2 kg (218 lb 12.8 oz). [place] Body Weight (IBW): [place] body weight: 73 kg (160 lb 15 [...] a new facility. MARIYA ZENDEJAS Beeper #: [id number] * Reba Linton MD - 03/02/2018 1:12 PM EDT [facility] Medicine Attending Daily Progress Note Patient [...] molar - Non-urgent extraction as outpatient Diet [facility] Healthy Diet Discharge planning Awaiting placement, medically ready for discharge. CM working hard to secure placement Lines/Access None Morse catheter None DVT Prophylaxis None, patient is ambulatory Code status FULL Team Pager [phone] PCP NAKIA Cifuentes Attestation IPI Certification I certify that I am a D-H credentialed attending provider with admitting privileges and that the patient meets or has met medical necessity to require an inpatient IPI level of care meeting a minimumof two midnights or is on the [facility] inpatient only procedure list (status C) due to: the patient has met Inpatient IPI criteria and is awaiting rehabilitation or long-term facility placement withactive referrals in process REBA LINTON MD * Reba Linton MD - 03/01/2018 2:31 PM EDT [facility] Medicine Attending Daily Progress Note Patient [...] sitting at the edge of bed reading Highlight with TOP LIFT CUTTER HEENT: Moist mucous membranes Neck: No jugular [...] is ambulatory Code status FULL Team Pager [phone] PCP NAKIA Cifuentes Attestation IPI Certification I certify that I am a D-H credentialed attending provider with admitting privileges and that the patient meets or has met medical necessity to require an inpatient IPI level of care meeting a minimumof two midnights or is on the [facility] inpatient only procedure list (status C) due to: the patient has met Inpatient IPI criteria and is awaiting rehabilitation or long-term facility placement withactive referrals in process REBA [...] is ambulatory Code status FULL Team Pager [phone] PCP NAKIA Cifuentes Attestation IPI Certification I certify that I am a D-H credentialed attending provider with admitting privileges and that the patient meets or has met medical necessity to require an inpatient IPI level of care meeting a minimumof two midnights or is on the [facility] inpatient only procedure list (status C) due to: the patient has met Inpatient IPI criteria and is awaiting rehabilitation or long-term facility placement withactive referrals in process REBA LINTON MD * Tricia Gerber RN - 02/27/2018 11:04 AM EDT Received call back from Noel Estrella- [phone] PASSR reviewer. She reports that PASSR is not needed unless patient is placed in a fci, which is not an appropriate setting for him. States she has been following case closely with YULISA Quevdeo, and all parties involved would like him placed as soon as possible. Reports that they are looking at possible transfer to crisis center when there is a bed opening. Tricia Gerber RN Case Design And Sales Consultant of Care Management [email or web address] Pager: [phone] * Abimbola Goldstein MD - 02/27/2018 8:20 AM EDT [facility] Medicine Attending Daily Progress Note Patient [...] contact information in Facesheet ABIMBOLA GOLDSTEIN MD [facility] Medicine Pager [phone] IPI Certification I certify that I am a D-H credentialed attending provider with admitting privileges and that the patient meets or has met medical necessity to require an inpatient IPI level of care meeting a minimumof two midnights or is on the [facility] inpatient only procedure list (status C) due to: the patient has met Inpatient IPI criteria and is awaiting rehabilitation or long-term facility placement withactive referrals in process . * Echo Hanson RN - 02/26/2018 4:57 PM EDT Continuing to follow patient's situation to support discharge planning and facilitation by care management. Patient admitted from long term under Developmental Services in [facility] with [facility] Human Services. Exchanged emails this week with Carissa Posada, Chief of who is supporting Bhakti Riojas and others to secure appropriate housing and supports for him. Recvd email today from Carissa stating they are pending approval from the [facility] INSTRUMENTAL TEACHER once they identify the leasing cost of a home. She is available tomorrow for a phone checkin and Care Management leadership will call to check in as she will be in the [facility] office [phone] ext [phone]. Chloe has been communicated with by HEATHER Clarke. Care Mgmt leadership to continue to follow and obtain regular updates from [facility]. Patient requires single-level entry to home which prevents his return to previous living situation. Echo Hanson RN, MSN, ACM-header operator, Care Management [phone] / pager [phone] * Abimbola Goldstein MD - 02/26/2018 8:28 AM EDT [facility] Medicine Attending Daily Progress Note Patient [...] Sister Bettina Isabella, contact information in Facesheet ABIMBOLA GOLDSTEIN MD Hospital Medicine Pager [phone] IPI Certification I certify that I am a D-H credentialed attending provider with admitting privileges and that the patient meets or has met medical necessity to require an inpatient IPI level of care meeting a minimumof two midnights or is on the [facility] inpatient only procedure list (status C) due to: the patient has met Inpatient IPI criteria and is awaiting rehabilitation or long-term facility placement withactive referrals in process . [...] received. Left voicemail for Bhakti Riojas, Senior Buffet Waiter/Waitress for [facility] [phone]. Called [facility] office [phone]. Spoke with Lali. She reports that Noel Estrella is assigned reviewer. States she will email her to check on status and call back. Spoke with Bettina Mason (Guardian/sister) [phone] (H). She reports that she spoke with [email or web address] last week and they told her they were looking at a new long term in [place] and a rental property. States this was her last report from them. Tricia Gerber, dance costume designer Office of Care Management Pager: [phone] * Abimbola Goldstein MD - 02/25/2018 12:06 PM EDT [facility] Medicine Attending Daily Progress Note Patient [...] contact information in Facesheet ABIMBOLA GOLDSTEIN MD [facility] Medicine Pager [phone] IPI Certification I certify that I am a D-H credentialed attending provider with admitting privileges and that the patient meets or has met medical necessity to require an inpatient IPI level of care meeting a minimumof two midnights or is on the [facility] inpatient only procedure list (status C) due to: the patient has met Inpatient IPI criteria and is awaiting rehabilitation or long-term facility placement withactive referrals in process . * Shruti Lozoya RN - 02/25/2018 4:52 AM EDT 02/24/18-02/25/18 [phone] Patient refusing to wear continuous masimo but does allow spot checks. The reason being the pt is not reliable to maintain safety with the cord continuously attached. Nursing will continue to monitor and will continue to spot check O2 levels with VS. * Abimbola Goldstein MD - 02/24/2018 10:37 AM EDT [facility] Medicine Attending Daily Progress Note Patient [...] contact information in Facesheet ABIMBOLA GOLDSTEIN MD [facility] Medicine Pager [phone] IPI Certification I certify that I am a D-H credentialed attending provider with admitting privileges and that the patient meets or has met medical necessity to require an inpatient IPI level of care meeting a minimumof two midnights or is on the [facility] inpatient only procedure list (status C) due to: the patient has met Inpatient IPI criteria and is awaiting rehabilitation or long-term facility placement withactive referrals in process . * Shruti Lozoya, RN - 02/24/2018 4:48 AM EDT 02/23/18-02/24/18 [phone] Patient refusing to wear continuous masimo. The reason being agitation of pt when wearing it, safety issues. Pt does allow spot checks with VS. Nursing actions taken during this shift to address patient???s refusal included continued educationabout importance of care, importance of O2 monitoring. Will inform MD of any changes, * Abimbola Goldstein MD - 02/23/2018 9:12 AM EDT [facility] Medicine Attending Daily Progress Note Patient [...] contact information in Facesheet ABIMBOLA GOLDSTEIN MD [facility] Medicine Pager [phone] IPI Certification I [...] IPI criteria and is awaiting rehabilitation or long-term facility placement withactive referrals in process . * Abimbola Goldstein MD - 02/22/2018 8:45 AM EDT [facility] Medicine Attending Daily Progress Note Patient [...] contact information in Facesheet ABIMBOLA GOLDSTEIN MD [facility] Medicine Pager [phone] IPI Certification I certify that I am a D-H credentialed attending provider with admitting privileges and that the patient meets or has met medical necessity to require an inpatient IPI level of care meeting a minimumof two midnights or is on the CMS inpatient only procedure list (status C) due to: the patient has met Inpatient IPI criteria and is awaiting rehabilitation or long-term facility placement withactive referrals in process . * Abimbola Goldstein MD - 02/21/2018 10:33 AM EDT [facility] Medicine Attending Daily Progress Note Patient [...] contact information in Facesheet ABIMBOLA GOLDSTEIN MD [facility] Medicine Pager [phone] IPI Certification I certify that I am a D-H credentialed attending provider with admitting privileges and that the patient meets or has met medical necessity to require an inpatient IPI level of care meeting a minimumof two midnights or is on the CMS inpatient only procedure list (status C) due to: the patient has met Inpatient IPI criteria and is awaiting rehabilitation or long-term facility placement withactive referrals in process . [...] pursuing placement. Have been in contact with [facility]. Per email on 02/18 looking at possible rental property Friday. We also have an opening in one of our group homes that may beable to meet his needs, however the director is on vacation until Friday so I cannot make the referral until then.. OCM management is also working with Carissa Posada Chief of Intellectual/Developmental Disabilities Services [facility] Human Services. Have requested to set-up weekly review meetings. Left voice mail for Level 2 reviewer at [facility] office [phone]. Request call back to discuss case. Case management will continue to follow and assist with discharge planning needs. Tricia Gerber RN Case Design And Sales Consultant of Care Management [email or web address] Pager: [phone] * Maldonado Salazar MD - 02/20/2018 12:09 PM EDT [facility] Medicine Attending Daily Progress Note Patient [...] contact information in Facesheet Maldonado Salazar MD [facility] Medicine Pager [phone] IPI Certification I certify that I am a D-H credentialed attending provider with admitting privileges and that the patient meets or has met medical necessity to require an inpatient IPI level of care meeting a minimumof two midnights or is on the [facility] inpatient only procedure list (status C) due to: the patient has met Inpatient IPI criteria and is awaiting rehabilitation or long-term facility placement withactive referrals in process . * Maldonado Salazar MD - 02/19/2018 2:02 PM EDT [facility] Medicine Attending Daily Progress Note Patient [...] contact information in Facesheet Maldonado Salazar MD [facility] Medicine Pager [phone] IPI Certification I certify that I am a D-H credentialed attending provider with admitting privileges and that the patient meets or has met medical necessity to require an inpatient IPI level of care meeting a minimumof two midnights or is on the CMS inpatient only procedure list (status C) due to: the patient has met Inpatient IPI criteria and is awaiting rehabilitation or long-term facility placement withactive referrals in process . [...] Salazar MD - 02/18/2018 2:13 PM EDT [facility] Medicine Attending Daily Progress Note Patient [...] contact information in Facesheet Maldonado Salazar MD [facility] Medicine Pager [phone] IPI Certification I certify that I am a D-H credentialed attending provider with admitting privileges and that the patient meets or has met medical necessity to require an inpatient IPI level of care meeting a minimumof two midnights or is on the CMS inpatient only procedure list (status C) due to: the patient has met Inpatient IPI criteria and is awaiting rehabilitation or long-term facility placement withactive referrals in process . * Tricia Gerber RN - 02/17/2018 5:15 PM EDT Sent email message to Bhakti Riojas- Senior Buffet Waiter/Waitress with [facility] [employer] [phone].??Request update on status of search for a home. ? Tricia Gerber RN Case Design And Sales Consultant of Care Management [email or web address] ?Pager: [phone] * Maldonado Salazar MD - 02/17/2018 2:34 PM EDT [facility] Medicine Attending Daily Progress Note Patient [...] contact information in Facesheet Maldonado Salazar MD [facility] Medicine Pager [phone] IPI Certification I certify that I am a D-H credentialed attending provider with admitting privileges and that the patient meets or has met medical necessity to require an inpatient IPI level of care meeting a minimumof two midnights or is on the [facility] inpatient only procedure list (status C) due to: the patient has met Inpatient IPI criteria and is awaiting rehabilitation or long-term facility placement withactive referrals in process . [...] contact information in Facesheet Malodnado Salazar MD [facility] Medicine Pager [phone] IPI Certification I certify that I am a D-H credentialed attending provider with admitting privileges and that the patient meets or has met medical necessity to require an inpatient IPI level of care meeting a minimumof two midnights or is on the [facility] inpatient only procedure list (status C) due to: the patient has met Inpatient IPI criteria and is awaiting rehabilitation or long-term facility placement withactive referrals in process . * Maldonado Salazar MD - 02/15/2018 2:16 PM EDT [facility] Medicine Attending Daily Progress Note Patient [...] the pod using walker today, made it detention around before needing wheelchair. No particular complaints. [...] Facesheet Maldonado Salazar MD Hospital Medicine Pager [phone] IPI Certification I certify that I am a D-H credentialed attending provider with admitting privileges and that the patient meets or has met medical necessity to require an inpatient IPI level of care meeting a minimumof two midnights or is on the CMS inpatient only procedure list (status C) due to: the patient has met Inpatient IPI criteria and is awaiting rehabilitation or long-term facility placement withactive referrals in process . * Maldonado Salazar MD - 02/14/2018 1:52 PM EDT [facility] Medicine Attending Daily Progress Note Patient [...] contact information in Facesheet Maldonado Salazar MD [facility] Medicine Pager [phone] IPI Certification I certify that I am a D-H credentialed attending provider with admitting privileges and that the patient meets or has met medical necessity to require an inpatient IPI level of care meeting a minimumof two midnights or is on the [facility] inpatient only procedure list (status C) due to: the patient has met Inpatient IPI criteria and is awaiting rehabilitation or long-term facility placement withactive referrals in process . * Christopher Stanley MD - 02/13/2018 8:01 AM EDT [facility] Medicine Attending Daily Progress Note Patient [...] overnight events Case management reached out to long term about status of search A few behavioral outbursts overnight with no recent deviation from baseline. Feeling awesome thismorning and listening to [employer]. Good oral intake per nursing staff. Voiding regularly. Havingregular bowel movements. No other symptoms or offered complaints. Physical Exam Temp: [36.6 ??C (97.9 ??F)-36.8 ??C (98.2 ??F)] Heart Rate: [77-84] Resp: [18] BP: (134-143)/(71-75) SpO2: [99 %] Heart Rate from SPO2: -- General: Alert, interactive, responsive to questions, listening to [employer] HEENT: Moist mucous membranes Neck: No evident [...] Facesheet Christopher Stanley MD Hospital Medicine Pager [phone] IPI Certification I certify that I am a D-H credentialed attending provider with admitting privileges and that the patient meets or has met medical necessity to require an inpatient IPI level of care meeting a minimumof two midnights or is on the [facility] inpatient only procedure list (status C) due to: the patient has met Inpatient IPI criteria and is awaiting rehabilitation or long-term facility placement withactive referrals in process . * Tricia Gerber RN - 02/12/2018 3:58 PM EDT Sent message to Bhakti Riojas- Senior Buffet Waiter/Waitress with [facility] Services [phone]. Request update on status of search for a home. ?? Tricia Gerber RN Case Design And Sales Consultant of Care Management [email or web address] Pager: [phone] * Christopher Stanley MD - 02/12/2018 7:40 AM EDT [facility] Medicine Attending Daily Progress Note Patient [...] contact information in Facesheet Christopher Stanley MD [facility] Medicine Pager [phone] IPI Certification I certify that I am a D-H credentialed attending provider with admitting privileges and that the patient meets or has met medical necessity to require an inpatient IPI level of care meeting a minimumof two midnights or is on the CMS inpatient only procedure list (status C) due to: the patient has met Inpatient IPI criteria and is awaiting rehabilitation or long-term facility placement withactive referrals in process . * Christopher Stanley MD - 02/11/2018 2:19 PM EDT [facility] Medicine Attending Daily Progress Note Patient [...] made him some unicorn poop out of [employer] and corn starch to play with today. [...] contact information in Facesheet Christopher Stanley MD [facility] Medicine Pager [phone] IPI Certification I certify that I am a D-H credentialed attending provider with admitting privileges and that the patient meets or has met medical necessity to require an inpatient IPI level of care meeting a minimumof two midnights or is on the [facility] inpatient only procedure list (status C) due to: the patient has met Inpatient IPI criteria and is awaiting rehabilitation or long-term facility placement withactive referrals in process . * Christopher Stanley MD - 02/10/2018 11:53 AM EDT [facility] Medicine Attending Daily Progress Note Patient [...] and celery during my visit, listening to Ayas[employer] music HEENT: Moist mucous membranes Neck: No [...] contact information in Facesheet Christopher Stanley MD [facility] Medicine Pager [phone] IPI Certification I [...] IPI criteria and is awaiting rehabilitation or long-term facility placement withactive referrals in process . * Christopher Stanley MD - 02/09/2018 8:08 AM EDT [facility] Medicine Attending Daily Progress Note Patient [...] Facesheet Christopher Stanley MD Hospital Medicine Pager [phone] IPI Certification I certify that I am a D-H credentialed attending provider with admitting privileges and that the patient meets or has met medical necessity to require an inpatient IPI level of care meeting a minimumof two midnights or is on the [facility] inpatient only procedure list (status C) due to: the patient has met Inpatient IPI criteria and is awaiting rehabilitation or long-term facility placement withactive referrals in process . * Christopher Stanley MD - 02/08/2018 10:43 AM EDT [facility] Medicine Attending Daily Progress Note Patient [...] or new complaints. Relates his love for [employer]. Physical Exam Temp: -- Heart Rate: [125] [...] Encourage normal sleep-wake cycle Christopher Stanley MD [facility] Medicine Pager [phone] IPI Certification I certify that I am a D-H credentialed attending provider with admitting privileges and that the patient meets or has met medical necessity to require an inpatient IPI level of care meeting a minimumof two midnights or is on the CMS inpatient only procedure list (status C) due to: the patient has met Inpatient IPI criteria and is awaiting rehabilitation or long-term facility placement withactive referrals in process . * Christopher Stanley MD - 02/07/2018 7:45 AM EDT [facility] Medicine Attending Daily Progress Note Patient [...] alert, agitated, eating carrots and celery with TOP LIFT CUTTER HEENT: Anicteric sclerae; moist mucous membranes Neck: [...] unsuccessful will provide extra dose of quetiapine Christpoher Stanley MD [facility] Medicine Pager [phone] IPI Certification I certify that I am a D-H credentialed attending provider with admitting privileges and that the patient meets or has met medical necessity to require an inpatient IPI level of care meeting a minimumof two midnights or is on the [facility] inpatient only procedure list (status C) due to: the patient has met Inpatient IPI criteria and is awaiting rehabilitation or long-term facility placement withactive referrals in process . [...] minimumof two midnights or is on the [facility] inpatient only procedure list (status C) due to: Patient previously met IPI criteria and is now awaiting placement at a long-term facility. FRAN GILLIAM MD 02/06/2018 Hospital Medicine Team Pager: #[phone] * Fran Gilliam MD - 02/05/2018 4:07 [...] minimumof two midnights or is on the [facility] inpatient only procedure list (status C) due to: Patient previously met IPI criteria and is now awaiting placement at a long-term facility. FRAN GILLIAM MD 02/05/2018 Hospital Medicine Team Pager: #[phone] * Fran Gilliam MD - 02/04/2018 9:44 [...] minimumof two midnights or is on the [facility] inpatient only procedure list (status C) due to: Patient previously met IPI criteria and is now awaiting placement at a long-term facility. FRAN GILLIAM MD 02/04/2018 Hospital Medicine Team Pager: #[phone] * Fran Gilliam MD - 02/03/2018 5:05 [...] minimumof two midnights or is on the [facility] inpatient only procedure list (status C) due to: Patient previously met IPI criteria and is now awaiting placement at a long-term facility. FRAN GILLIAM MD 02/03/2018 Hospital Medicine Team Pager: #[phone] * Fran Gilliam MD - 02/02/2018 3:40 [...] and is now awaiting placement at a long-term facility. FRAN GILLIAM MD 02/02/2018 Hospital Medicine Team Pager: #[phone] * Fran Gilliam MD - 02/01/2018 5:15 [...] and is now awaiting placement at a long-term facility. FRAN GILLIAM MD 02/02/2018 Hospital Medicine Team Pager: #[phone] * Fran Gilliam MD - 01/31/2018 12:10 [...] minimumof two midnights or is on the [facility] inpatient only procedure list (status C) due to: Patient previously met IPI criteria and is now awaiting placement at a long-term facility. FRAN GILLIAM MD 02/01/2018 Hospital Medicine Team Pager: #[phone] * Tricia Gerber RN - 01/30/2018 3:33 PM EDT Sent message to Bhakti Riojas- Senior Buffet Waiter/Waitress with [facility] [phone]. Request update on status of search for a home. Tricia Gerber RN Case Design And Sales Consultant of Care Management [email or web address] Pager: [phone] * Noah Menard MD - 01/30/2018 8:06 [...] minimumof two midnights or is on the [facility] inpatient only procedure list (status C) due to: Patient previously met IPI criteria and is now awaiting placement at a long-term facility. LOS >48hrs. Noah Menard MD 01/30/2018 Hospital Medicine Team Pager: #[phone] * Noah Menard MD - 01/29/2018 7:52 [...] and is now awaiting placement at a long-term facility. LOS >48hrs. Noah Menard MD 01/29/2018 Hospital Medicine Team Pager: #[phone] * Yadi Mccauley MD - 01/28/2018 8:29 AM EDT ENDOCRINOLOGY FOLLOW UP INPATIENT NOTE [facility] Name: Miguel Angel Mason Date of [...] History: Procedure Laterality Date ??? PRO OPEN BOTTOM BLEACHER FIX ACETABULAR FX Left 09/04/2017 @OPEN TREATMENT, ACETABULAR FX (WRVU 25.41) performed by Amy Lance MD at [facility] OR Allergies Allergen Reactions ??? [...] minimumof two midnights or is on the [facility] inpatient only procedure list (status C) due to: Patient previously met IPI criteria and is now awaiting placement at a long-term facility. LOS >48hrs. Noah Menard MD 01/28/2018 Hospital Medicine Team Pager: #[phone] * Yadi Mccauley MD - 01/27/2018 4:19 PM EDT Images from the original note were not included. ENDOCRINOLOGY FOLLOW UP INPATIENT NOTE [facility] Name: Miguel Angel Mason Date of [...] History: Procedure Laterality Date ??? PRO OPEN BOTTOM BLEACHER FIX ACETABULAR FX Left 09/04/2017 @OPEN TREATMENT, ACETABULAR FX (WRVU 25.41) performed by Amy Lance MD at [facility] Allergies Allergen Reactions ??? [...] for 01/23: Met with Bhakti Riojas- Senior Buffet Waiter/Waitress with [facility] [phone]. We reviewed patient and his needs. Expressed to her concerns for the disservice that has been done to this patient. He has remained in the hospital for an extended amount of time and [facility] has not been responsive or assistive [...] discharge planning needs. Tricia Gerber RN Case Design And Sales Consultant of Care Management [email or web address] Pager: [phone] * Noah Menard MD - 01/27/2018 7:40 [...] minimumof two midnights or is on the [facility] inpatient only procedure list (status C) due to: Patient previously met IPI criteria and is now awaiting placement at a long-term facility. LOS >48hrs. Noah Menard MD 01/27/2018 Hospital Medicine Team Pager: #[phone] * Noah Menard MD - 01/26/2018 7:40 [...] for discharge and awaiting placement at a long-term facility. Active Problems: Active Hospital Problems Diagnosis [...] for discharge and awaiting placement at a long-term facility. # Left acetabular fracture: S/p operative [...] minimumof two midnights or is on the [facility] inpatient only procedure list (status C) due to: Patient previously met IPI criteria and is now awaiting placement at a long-term facility. LOS >48hrs. Noah Menard MD 01/26/2018 Hospital Medicine Team Pager: #[phone] * Dani Montoya RN - 01/25/2018 5:18 [...] for discharge and awaiting placement at a long-term facility. Active Problems: Active Hospital Problems Diagnosis [...] for discharge and awaiting placement at a long-term facility. # Left acetabular fracture: S/p operative [...] minimumof two midnights or is on the [facility] inpatient only procedure list (status C) due to: Patient previously met IPI criteria and is now awaiting placement at a long-term facility. LOS >48hrs. Noah Menard MD 01/25/2018 Hospital Medicine Team Pager: #[phone] * Noah Menard MD - 01/24/2018 7:14 [...] for discharge and awaiting placement at a long-term facility. Active Problems: Active Hospital Problems Diagnosis [...] for discharge and awaiting placement at a long-term facility. # Left acetabular fracture: S/p operative [...] minimumof two midnights or is on the [facility] inpatient only procedure list (status C) due to: Patient previously met IPI criteria and is now awaiting placement at a long-term facility. LOS >48hrs. Noah Menard MD 01/24/2018 Hospital Medicine Team Pager: #[phone] * Abimbola Goldstein MD - 01/23/2018 8:18 [...] presumed environmental given change from his normal long term to the variably hospital situation. Had been [...] WBAT, not able to return to current long term and appreciate CM/SW assistance who are reaching out to [facility] for other options - may be home opening in March per report. Denied at SNFs with behavior. [facility] seems only option but no viable current [...] none DVT PPX: SCDs Anticipated Disposition: Currently long term is not feasible - needs to be able to (at a minimum) walk to the bathroom and go up/down 13 stairs (which mimics the current living situation at his long term). Per our SW, [facility] is discussing options but no current viable option. SNFs declined. Team Pager(MD Coverage 27/01): # [phone] PCP: NAKIA Cifuentes [phone] Attestation: IPI Certification I certify that I [...] IPI criteria and is awaiting rehabilitation or long-term facility placement withactive referrals in process PCP: NAKIA Cifuentes [phone] ABIMBOLA GOLDSTEIN MD 01/23/2018 * Tricia Gerber RN - 01/22/2018 5:12 PM EDT Received call that YULISA Quevedo RN will be completing on-site visit on 01/23. Tricia Gerber RN Case Design And Sales Consultant of Care Management [email or web address] Pager: [phone] * Debbie Keller DT - 01/22/2018 12:35 [...] continue to send. Please call diet office [phone] to modify snack any time. Nursing had [...] consulted in the interim. ADAM Kaur * bAimbola Goldstein MD - 01/22/2018 12:05 PM EDT [...] presumed environmental given change from his normal long term to the variably hospital situation. Had been [...] WBAT, not able to return to current long term and appreciate CM/SW assistance who are reaching out to [facility] for other options - may be home opening in March per report. Denied at SNFs with behavior. [facility] seems only option but no viable current [...] none DVT PPX: SCDs Anticipated Disposition: Currently long term is not feasible - needs to be able to (at a minimum) walk to the bathroom and go up/down 13 stairs (which mimics the current living situation at his long term). Per our SW, [facility] is discussing options but no current viable option. SNFs declined. Team Pager( Coverage 27/01): # [phone] PCP: NAKIA Cifuentes [phone] Attestation: IPI Certification I certify that I [...] IPI criteria and is awaiting rehabilitation or long-term facility placement withactive referrals in process PCP: NAKIA Cifuentes [phone] ABIMBOLA GOLDSTEIN MD 01/22/2018 * Danay Monge [...] presumed environmental given change from his normal long term to the variably hospital situation. Had been [...] WBAT, not able to return to current long term and appreciate CM/SW assistance who are reaching out to [facility] for other options - may be home opening in March per report. Denied at SNFs with behavior. [facility] seems only option but no viable current [...] none DVT PPX: SCD Anticipated Disposition: Currently long term is not feasible - needs to be able to (at a minimum) walk to the bathroom and go up/down 13 stairs (which mimics the current living situation at his long term). Per our SW, [facility] is discussing options but no current viable option. SNFs declined. Team Pager( Coverage 27/01): # [phone] PCP: NAKIA Cifuentes [phone] Attestation: IPI Certification I certify that I [...] IPI criteria and is awaiting rehabilitation or long-term facility placement withactive referrals in process PCP: NAKIA Cifuentes [phone] DANAY MONGE MD 01/21/2018 * Danay Monge [...] presumed environmental given change from his normal long term to the variably hospital situation. Had been [...] WBAT, not able to return to current long term and appreciate CM/SW assistance who are reaching out to [facility] for other options - may be home opening in March per report. Denied at SNFs with behavior. [facility] seems only option but no viable current [...] none DVT PPX: SCD Anticipated Disposition: Currently long term is not feasible - needs to be able to (at a minimum) walk to the bathroom and go up/down 13 stairs (which mimics the current living situation at his long term). Per our SW, [facility] is discussing options but no current viable option. SNFs declined. Team Pager( Coverage 27/01): # [phone] PCP: NAKIA Cifuentes [phone] Attestation: IPI Certification I certify that I am a D-H credentialed attending provider with admitting privileges and that the patient meets or has met medical necessity to require an inpatient IPI level of care meeting a minimumof two midnights or is on the [facility] inpatient only procedure list (status C) due to: the patient has met Inpatient IPI criteria and is awaiting rehabilitation or long-term facility placement withactive referrals in process Crista Aguilar MD PCP: NAKIA Cifuentes [phone] DANAY MONGE MD 01/20/2018 * Danay Monge [...] presumed environmental given change from his normal long term to the variably hospital situation. Had been [...] WBAT, not able to return to current long term and appreciate CM/SW assistance who are reaching out to [facility] for other options - may be home opening in March per report. Denied at SNFs with behavior. [facility] seems only option but no viable current [...] none DVT PPX: SCD Anticipated Disposition: Currently long term is not feasible - needs to be able to (at a minimum) walk to the bathroom and go up/down 13 stairs (which mimics the current living situation at his long term). Per our SW, [facility] is discussing options but no current viable option. SNFs declined. Team Pager( Coverage 27/01): # [phone] PCP: NAKIA Cifuentes [phone] Attestation: IPI Certification I certify that I [...] IPI criteria and is awaiting rehabilitation or long-term facility placement withactive referrals in process Crista Aguilar MD PCP: NAKIA Cifuentes [phone] DANAY MONGE MD 01/19/2018 * Danay Monge MD - 01/18/2018 11:25 AM EDT [facility] Medicine Attending Daily Progress Note Admit Date: 09/02/2017 Hospital Day 138 days Active Hospital Problems Diagnosis ??? S/P ORIF left acetabulum fracture 09/04/2017 Dr. Lance ??? Acute urinary retention ??? Diabetes insipidus ??? Adrenal insufficiency ??? Panhypopituitarism ??? Seizure disorder ??? Hypothyroidism Resolved Hospital Problems Diagnosis Date Resolved ??? Postoperative anemia due to acute blood loss 12/09/2017 [facility] Active Non-Hospital Problems Diagnosis ??? Insomnia ??? [...] presumed environmental given change from his normal long term to the variably hospital situation. Had been [...] WBAT, not able to return to current long term and appreciate CM/SW assistance who are reaching out to [facility] for other options - may be home opening in March per report. Denied at SNFs with behavior. [facility] seems only option but no viable current [...] none DVT PPX: SCD Anticipated Disposition: Currently long term is not feasible - needs to be able to (at a minimum) walk to the bathroom and go up/down 13 stairs (which mimics the current living situation at his long term). Per our SW, [facility] is discussing options but no current viable option. SNFs declined. Team Pager( Coverage 27/01): # [phone] PCP: NAKIA Cifuentes [phone] Attestation: IPI Certification I certify that I [...] IPI criteria and is awaiting rehabilitation or long-term facility placement withactive referrals in process Crista Aguilar MD PCP: NAKIA Cifuentes [phone] DANAY MONGE MD 01/18/2018 * Danay Monge [...] anemia due to acute blood loss 12/09/2017 [facility] Active Non-Hospital Problems Diagnosis ??? Insomnia ??? [...] presumed environmental given change from his normal long term to the variably hospital situation. Had been [...] WBAT, not able to return to current long term and appreciate CM/SW assistance who are reaching out to [facility] for other options - may be home opening in March per report. Denied at SNFs with behavior. [facility] seems only option but no viable current [...] none DVT PPX: SCD Anticipated Disposition: Currently long term is not feasible - needs to be able to (at a minimum) walk to the bathroom and go up/down 13 stairs (which mimics the current living situation at his long term). Per our SW, [facility] is discussing options but no current viable option. SNFs declined. Team Pager( Coverage 27/01): # [phone] PCP: NAKIA Cifuentes [phone] Attestation: IPI Certification I certify that I am a D-H credentialed attending provider with admitting privileges and that the patient meets or has met medical necessity to require an inpatient IPI level of care meeting a minimumof two midnights or is on the [facility] inpatient only procedure list (status C) due to: the patient has met Inpatient IPI criteria and is awaiting rehabilitation or long-term facility placement withactive referrals in process Crista Aguilar MD PCP: NAKIA Cifuentes [phone] DANAY MONGE MD 01/17/2018 * Crista Aguilar [...] History: No acute events ROS: Talked with [employer]. Miguel Angel went out to look at [...] presumed environmental given change from his normal long term to the variably hospital situation. Had been [...] WBAT, not able to return to current long term and appreciate CM/SW assistance who are reaching out to [facility] for other options - may be home opening in March per report. Denied at SNFs with behavior. [facility] seems only option but no viable current [...] none DVT PPX: SCD Anticipated Disposition: Currently long term is not feasible - needs to be able to (at a minimum) walk to the bathroom and go up/down 13 stairs (which mimics the current living situation at his long term). Per our SW, [facility] is discussing options but no current viable option. SNFs declined. Team Pager( Coverage 27/01): # [phone] PCP: NAKIA Cifuentes [phone] Attestation: IPI Certification I certify that I [...] IPI criteria and is awaiting rehabilitation or long-term facility placement withactive referrals in process Crista [...] visit. ROS limited by mental status. Per [employer] sleeping more today -did not finish lunch. [...] presumed environmental given change from his normal long term to the variably hospital situation. Had been [...] WBAT, not able to return to current long term and appreciate CM/SW assistance who are reaching out to [facility] for other options - may be home opening in March per report. Denied at SNFs with behavior. [facility] seems only option but no viable current [...] none DVT PPX: SCD Anticipated Disposition: Currently long term is not feasible - needs to be able to (at a minimum) walk to the bathroom and go up/down 13 stairs (which mimics the current living situation at his long term). Per our SW, [facility] is discussing options but no current viable option. SNFs declined. Team Pager( Coverage 27/01): # [phone] PCP: NAKIA Cifuentes [phone] Attestation: IPI Certification I certify that I [...] IPI criteria and is awaiting rehabilitation or long-term facility placement withactive referrals in process Crista Aguilar MD 01/15/2018 * Tricia Gerber RN - 01/15/2018 1:14 PM EDT Left message for Lc Hull# [phone]- director of [facility]. Left voice mail for Carissa Posada, Chief of Developmental Services for the [facility]. [phone]. Tricia Gerber RN Case Design And Sales Consultant of Care Management [email or web address] Pager: [phone] * Adia Clarke RN - 01/15/2018 10:34 [...] pain or SOB. No acute concerns from [employer] but notices still some unsteadiness with gait. [...] presumed environmental given change from his normal long term to the variably hospital situation. Had been [...] clarify if able to return to current long term and may need to explore other options [...] none DVT PPX: SCD Anticipated Disposition: Currently long term does not seem feasible - needs to be able to (at a minimum) walk to the bathroom and go up/down 13 stairs (which mimics the current living situation at his long term). Per our SW, [facility] is discussing options but no current viable option. SNFs declined. Team Pager( Coverage 27/01): # [phone] PCP: NAKIA Cifuentes [phone] Attestation: IPI Certification I certify that I [...] IPI criteria and is awaiting rehabilitation or long-term facility placement withactive referrals in process Crista [...] presumed environmental given change from his normal long term to the variably hospital situation. Had been [...] clarify if able to return to current long term and may need to explore other options [...] SCD Anticipated Disposition: SNF vs back to long term --> no longer being seen by PT/OT, he continues to take a few steps with assistance and using a walker but needs to be able to (at a minimum) walk to the bathroom and go up/down 13 stairs (which mimics the current living situation at his long term) Team Pager( Coverage 27/01): # [phone] PCP: NAKIA Cifuentes [phone] Attestation: IPI Certification I certify that I [...] IPI criteria and is awaiting rehabilitation or long-term facility placement withactive referrals in process Crista Aguilar MD 01/13/2018 * Tricia Gerber RN - 01/12/2018 4:32 PM EDT Received call from Carissa Posada, Chief of Developmental Services for the [facility]. [phone]. Stated they are having a large meeting with the state today to help findappropriate housing for Miguel Angel. Reports they should have an update on plan by 01/13/18. Tricia Gerber RN Case Design And Sales Consultant of Care Management [email or web address] Pager: [phone] * Guerrero Bah MD - 01/12/2018 4:29 PM EDT Images from the original note were not included. Brief Endocrinology Follow up note Name: Miguel Angel Mason Date: 01/12/18 Room: [address] [place] [address] HPI: Miguel Angel Mason??is a 27 y.o.male??with [...] MD Endocrinology, Diabetes and Metabolism Fellow Pager #[phone] 01/12/2018 * Crista Aguilar MD - 01/12/2018 [...] presumed environmental given change from his normal long term to the variably hospital situation. Stopped opioids [...] clarify if able to return to current long term and may need to explore other options [...] SCD Anticipated Disposition: SNF vs back to long term --> no longer being seen by PT/OT, he continues to take a few steps with assistance and using a walker but needs to be able to (at a minimum) walk to the bathroom and go up/down 13 stairs (which mimics the current living situation at his long term) Team Pager( Coverage 27/01): # [phone] PCP: NAKIA Cifuentes [phone] Attestation: IPI Certification I certify that I [...] IPI criteria and is awaiting rehabilitation or long-term facility placement withactive referrals in process Crista [...] presumed environmental given change from his normal long term to the variably hospital situation. Stopped opioids [...] clarify if able to return to current long term and may need to explore other options [...] SCD Anticipated Disposition: SNF vs back to long term --> no longer being seen by PT/OT, he continues to take a few steps with assistance and using a walker but needs to be able to (at a minimum) walk to the bathroom and go up/down 13 stairs (which mimics the current living situation at his long term) Team Pager( Coverage 27/01): # [phone] PCP: NAKIA Cifuentes [phone] Attestation: IPI Certification I certify that I [...] IPI criteria and is awaiting rehabilitation or long-term facility placement withactive referrals in process Crista [...] presumed environmental given change from his normal long term to the variably hospital situation. Stopped opioids [...] clarify if able to return to current long term and may need to explore other options [...] SCD Anticipated Disposition: SNF vs back to long term --> no longer being seen by PT/OT, he continues to take a few steps with assistance and using a walker but needs to be able to (at a minimum) walk to the bathroom and go up/down 13 stairs (which mimics the current living situation at his long term) Team Pager( Coverage 27/01): # [phone] PCP: NAKIA Cifuentes [phone] Attestation: IPI Certification I certify that I [...] IPI criteria and is awaiting rehabilitation or long-term facility placement withactive referrals in process Crista Aguilar MD 01/10/2018 * Yadi Mccauley MD - 01/10/2018 11:39 AM EDT Images from the original note were not included. Endocrinology Follow up note Name: Miguel Angel Mason Date: 01/10/18 Room: [address] [place] [address]-A HPI: Miguel Angel Mason??is a 27 y.o.male??with [...] History: Procedure Laterality Date ??? PRO OPEN BOTTOM BLEACHER FIX ACETABULAR FX Left 09/04/2017 @OPEN TREATMENT, ACETABULAR FX (WRVU 25.41) performed by Aym Lance MD at [facility] OR No family history on [...] MD Endocrinology, Diabetes and Metabolism Fellow Pager #[phone] 01/10/2018 I have seen the patient and reviewed Dr. Guerrero Nick's above history and I agree with the details as written. The assessment and plan were formulated in discussion with me and I agree with them as documented. Yadi Mccauley MD, PhD, FACP, FACE * Tricia Gerber, RN - 01/09/2018 3:02 PM EDT Left message for Subha Tejeda # [phone]- nurse who oversees long term. Left message for Lc Hull# [phone]- director of [facility] [facility]. Called town offices in [place], [place] . They do not know of any other facilities that could accommodate patient needs. Left voice mail for Carissa Posada, Chief of Developmental Services for the [facility]. [phone]. Case management will continue to follow. Tricia Gerber dance costume designer Office of Care Management [email or web address] Pager: [phone] * Maldonado Salazar MD - 01/09/2018 11:43 [...] History / ROS: - quietly listening to [employer] book this morning Physical Exam Vitals Range [...] presumed environmental given change from his normal long term to the variably hospital situation. Stopped opioids [...] SCD Anticipated Disposition: SNF vs back to long term --> no longer being seen by PT/OT, he continues to take a few steps with assistance and using a walker but needs to be able to (at a minimum) walk to the bathroom and go up/down 13 stairs (which mimics the current living situation at his long term) Team Pager( Coverage 27/01): # [phone] PCP: NAKIA Cifuentes [phone] Attestation: IPI Certification I certify that I [...] IPI criteria and is awaiting rehabilitation or long-term facility placement withactive referrals in process Maldonado [...] seen for nutrition follow up. Spoke with TOP LIFT CUTTER who reported a good appetite that has been ongoing. No difficulty chewing or swallowing. No nausea or vomiting reported. TOP LIFT CUTTER requestedhealthy snacks at bedside: carrot sticks, celery stick, cheese and grapes & apples - will add to nourshments each day. TOP LIFT CUTTER had no questions or concerns at this [...] SCD Anticipated Disposition: SNF vs back to long term --> no longer being seen by PT/OT, he continues to take a few steps with assistance and using a walker but needs to be able to (at a minimum) walk to the bathroom and go up/down 13 stairs (which mimics the current living situation at his long term) Team Pager( Coverage 27/01): # [phone] PCP: NAKIA Cifuentes [phone] Attestation: IPI Certification I certify that I [...] IPI criteria and is awaiting rehabilitation or long-term facility placement withactive referrals in process Maldonado [...] SCD Anticipated Disposition: SNF vs back to long term --> no longer being seen by PT/OT, he continues to take a few steps with assistance and using a walker but needs to be able to (at a minimum) walk to the bathroom and go up/down 13 stairs (which mimics the current living situation at his long term) Team Pager( Coverage 27/01): # [phone] PCP: NAKIA Cifuentes [phone] Attestation: IPI Certification I certify that I [...] IPI criteria and is awaiting rehabilitation or long-term facility placement withactive referrals in process Maldonado Salazar MD 01/07/2018 * Maldonado Salazar MD - 01/06/2018 12:43 PM EDT [facility] Medicine Attending Daily Progress Note Admit [...] something he normally likes to do at long term, then try to avail him ofthat here. [...] SCD Anticipated Disposition: SNF vs back to long term pending progress with PT/OT --> need to discuss ongoing therapy involvement as he has not been seen in several days, at a minimum he needs to walk to bathroom and go up/down 13 stairs (which mimics the current living situation at his long term) Team Pager( Coverage 27/01): # [phone] PCP: NAKIA Cifuentes [phone] Attestation: IPI Certification I certify that I [...] IPI criteria and is awaiting rehabilitation or long-term facility placement withactive referrals in process Maldonado Salazar MD 01/06/2018 * Yadi Mccauley MD - 01/06/2018 9:57 AM EDT Images from the original note were not included. Endocrinology Follow up note Name: Miguel Angel Mason Date: 01/06/18 Room: [address] [place] [address]-A HPI: Miguel Angel Mason??is a 27 y.o.male??with [...] History: Procedure Laterality Date ??? PRO OPEN BOTTOM BLEACHER FIX ACETABULAR FX Left 09/04/2017 @OPEN TREATMENT, ACETABULAR FX (WRVU 25.41) performed by Amy Lance MD at [facility] No family history on [...] MD Endocrinology, Diabetes and Metabolism Fellow Pager #[phone] 01/06/2018 I have seen the patient and [...] something he normally likes to do at long term, then try to avail him ofthat here. [...] SCD Anticipated Disposition: SNF vs back to long term pending progress with PT/OT --> need to discuss ongoing therapy involvement as he has not been seen in several days, at a minimum he needs to walk to bathroom and go up/down 13 stairs (which mimics the current living situation at his long term) Team Pager( Coverage 27/01): # [phone] PCP: NAKIA Cifuentes [phone] Attestation: IPI Certification I certify that I [...] IPI criteria and is awaiting rehabilitation or long-term facility placement withactive referrals in process Maldonado Salazar MD 01/05/2018 * Yadi Mccauley MD - 01/05/2018 9:51 AM EDT Images from the original note were not included. Endocrinology Follow up note Name: Miguel Angel Mason Date: 01/05/18 Room: [address] [place] [address] HPI: Miguel Angel Mason??is a 27 y.o.male??with [...] History: Procedure Laterality Date ??? PRO OPEN BOTTOM BLEACHER FIX ACETABULAR FX Left 09/04/2017 @OPEN TREATMENT, ACETABULAR FX (WRVU 25.41) performed by Amy Lance MD at [facility] No family history on [...] MD Endocrinology, Diabetes and Metabolism Fellow Pager #[phone] 01/05/2018 Spoke with primary team. We recommend [...] I agree with them as documented. Yadi Mccualey MD, PhD, FACP, FACE * Maldonado Salazar [...] something he normally likes to do at long term, then try to avail him ofthat here. [...] SCD Anticipated Disposition: SNF vs back to long term pending progress with PT/OT Team Pager( Coverage 27/01): # [phone] PCP: NAKIA Cifuentes [phone] Attestation: IPI Certification I certify that I am a D-H credentialed attending provider with admitting privileges and that the patient meets or has met medical necessity to require an inpatient IPI level of care meeting a minimumof two midnights or is on the [facility] inpatient only procedure list (status C) due to: the patient has met Inpatient IPI criteria and is awaiting rehabilitation or long-term facility placement withactive referrals in process Maldonado Salazar MD 01/04/2018 * Lindsey Walsh, DO - 01/04/2018 9:54 AM EDT Images from the original note were not included. ENDOCRINOLOGY FOLLOW UP INPATIENT NOTE [facility] Name: Miguel Angel Mason Date of [...] History: Procedure Laterality Date ??? PRO OPEN BOTTOM BLEACHER FIX ACETABULAR FX Left 09/04/2017 @OPEN TREATMENT, ACETABULAR FX (WRVU 25.41) performed by Amy Lance MD at [facility] Allergies Allergen Reactions ??? [...] with 3.2L fluid restriction was recommended to tar and ammonia pump operator provider overnight. We continue to recommend this [...] the on-call Endocrinology service. GENEVIEVE PAGE MD Vice President Of [employer] plater Section of Endocrinology [facility] * Maldonado Salazar MD - 01/03/2018 12:31 PM EDT [facility] Medicine Attending Daily Progress Note Admit [...] something he normally likes to do at long term, then try to avail him ofthat here. [...] SCD Anticipated Disposition: SNF vs back to long term pending progress with PT/OT Team Pager( Coverage 27/01): # [phone] PCP: NAKIA Cifuentes [phone] Attestation: IPI Certification I certify that I [...] IPI criteria and is awaiting rehabilitation or long-term facility placement withactive referrals in process Maldonado [...] something he normally likes to do at long term, then try to avail him ofthat here. [...] SCD Anticipated Disposition: SNF vs back to long term pending progress with PT/OT Team Pager( Coverage 27/01): # [phone] PCP: NAKIA Cifuentes [phone] Attestation: IPI Certification I certify that I am a D-H credentialed attending provider with admitting privileges and that the patient meets or has met medical necessity to require an inpatient IPI level of care meeting a minimumof two midnights or is on the [facility] inpatient only procedure list (status C) due to: the patient has met Inpatient IPI criteria and is awaiting rehabilitation or long-term facility placement withactive referrals in process FRAN GILLIAM MD 01/03/2018 * Lindsey Walsh, - 01/02/2018 11:00 AM EDT Images from the original note were not included. ENDOCRINOLOGY FOLLOW UP INPATIENT NOTE [facility] Name: Miguel Angel Mason Date of [...] History: Procedure Laterality Date ??? PRO OPEN BOTTOM BLEACHER FIX ACETABULAR FX Left 09/04/2017 @OPEN TREATMENT, ACETABULAR FX (WRVU 25.41) performed by Amy Lance MD at [facility] Allergies Allergen Reactions ??? [...] agree with this plan. GENEVIEVE PAGE MD Vice President Of [employer] plater Section of Endocrinology [facility] * Fran Gilliam MD - [...] something he normally likes to do at long term, then try to avail him ofthat here. [...] SCD Anticipated Disposition: SNF vs back to long term pending progress with PT/OT Team Pager( Coverage 27/01): # [phone] PCP: NAKIA Cifuentes [phone] Attestation: IPI Certification I certify that I [...] IPI criteria and is awaiting rehabilitation or long-term facility placement withactive referrals in process FRAN GILLIAM MD 01/01/2018 * Chavez Kelsey RN - 01/01/2018 3:14 PM EDT OFFICE OF CARE MANAGEMENT Met briefly with miguel angel this afternoon. He is in bed and appears very agitated and upset at this time. CM call to Lc Hull- [phone] 2. VM left with CM contact to f/u and discuss state assistance for appropriate placement for this gentleman. He does not appear to require further formal PT. He has been cleared to walk with nursing. He is currently 2 person assist on stairs. Pt is unable to return to long term setting as his bedroom is second level [...] something he normally likes to do at long term, then try to avail him ofthat here. [...] SCD Anticipated Disposition: SNF vs back to long term pending progress with PT/OT Team Pager( Coverage 27/01): # [phone] PCP: NAKIA Cifuentes [phone] Attestation: IPI Certification I certify that I [...] IPI criteria and is awaiting rehabilitation or long-term facility placement withactive referrals in process FRAN [...] something he normally likes to do at long term, then try to avail him ofthat here. [...] SCD Anticipated Disposition: SNF vs back to long term pending progress with PT/OT Team Pager( Coverage 27/01): # [phone] PCP: NAKIA Cifuentes [phone] Attestation: IPI Certification I certify that I [...] IPI criteria and is awaiting rehabilitation or long-term facility placement withactive referrals in process FRAN [...] monitor status. Murtaza Bruce PT, DPT Pager [phone] Inpatient Rehabilitation * Skyla Ayala, OT - [...] participation as able. Skyla Ayala, OTR Pager [phone] * Fran Gilliam MD - 12/29/2017 1:08 [...] something he normally likes to do at long term, then try to avail him ofthat here. [...] SCD Anticipated Disposition: SNF vs back to long term pending progress with PT/OT Team Pager(MD Coverage 27/01): # [phone] PCP: NAKIA Cifuentes [phone] Attestation: IPI Certification I certify that I am a D-H credentialed attending provider with admitting privileges and that the patient meets or has met medical necessity to require an inpatient IPI level of care meeting a minimumof two midnights or is on the [facility] inpatient only procedure list (status C) due to: the patient has met Inpatient IPI criteria and is awaiting rehabilitation or long-term facility placement withactive referrals in process FRAN GILLIAM MD 12/29/2017 * Tricia Gerber, RN - 12/29/2017 11:15 AM EDT Left another voice mail for Subha Hoytnora [phone] at [employer]. Request additionalinformation regarding long term/ sitters/ developmental services waiver. [facility] has requested to remove the sitters they have been providing as they are getting burnedout and don't feel they are needed any more. Spoke with Lc Hull ([facility] Machine Stapler) at [phone]. He reports that having sitters here or not does not affect pateints funding. States what may affect his funding is length of time spent in the hospital. Reports funding can end after 90 days in hospital. [facility] department of aging and independent living [...] reports that Naheed Estrella was working with [facility] on an agreement. Informed him that per [facility] liaison, patient is a regional denial. States he was not aware of that. Explained that patient is medically ready, in need of placement, and request assistance with placement. He reports that he will send RN out to review and determine if he is possibly ready for return to long term. Case management will continue to follow. Tricia Gerber RN Case Design And Sales Consultant of Care Management [email or web address] Pager: [phone] * Fran Gilliam MD - 12/28/2017 2:09 [...] something he normally likes to do at long term, then try to avail him ofthat here. [...] SCD Anticipated Disposition: SNF vs back to long term pending progress with PT/OT Team Pager( Coverage 27/01): # [phone] PCP: NAKIA Cifuentes [phone] Attestation: IPI Certification I certify that I [...] IPI criteria and is awaiting rehabilitation or long-term facility placement withactive referrals in process FRAN GILLIAM MD 12/28/2017 * Ren Dumont MD - 12/28/2017 11:04 AM EDT Images from the original note were not included. Endocrinology Follow up note Name: Miguel Angel Mason Date: 12/28/17 Room: [address] [place] [address] HPI: Miguel Angel Mason is a 27 [...] History: Procedure Laterality Date ??? PRO OPEN BOTTOM BLEACHER FIX ACETABULAR FX Left 09/04/2017 @OPEN TREATMENT, ACETABULAR FX (WRVU 25.41) performed by Amy Lance MD at [facility] No family history on [...] MD Endocrinology, Diabetes and Metabolism Fellow Pager #[phone] 12/28/2017 I have disucssed patient with Dr. [...] something he normally likes to do at long term, then try to avail him of that [...] SCD Anticipated Disposition: SNF vs back to long term pending progress with PT/OT Team Pager( Coverage 27/01): # [phone] PCP: NAKIA Cifuentes [phone] Attestation: IPI Certification I certify that I am a D-H credentialed attending provider with admitting privileges and that the patient meets or has met medical necessity to require an inpatient IPI level of care meeting a minimumof two midnights or is on the [facility] inpatient only procedure list (status C) due to: the patient has met Inpatient IPI criteria and is awaiting rehabilitation or long-term facility placement withactive referrals in process FRAN [...] Name: Miguel Angel Mason Date: 12/26/17 Room: [address] [place] [address] HPI: Miguel Angel Mason is a 27 [...] History: Procedure Laterality Date ??? PRO OPEN BOTTOM BLEACHER FIX ACETABULAR FX Left 09/04/2017 @OPEN TREATMENT, ACETABULAR FX (WRVU 25.41) performed by Amy Lance MD at [facility] No family history on [...] would recommend stimulating PO intake. Nurse and nurse care manager think this is possible and will make [...] MD Endocrinology, Diabetes and Metabolism Fellow Pager #[phone] 12/26/2017 I have discussed patient with Dr. [...] anemia due to acute blood loss 12/09/2017 [facility] Active Non-Hospital Problems Diagnosis ??? Insomnia ??? [...] something he normally likes to do at long term, then try to avail him of that [...] Disposition: SNF Team Pager( Coverage 27/01): # [phone] PCP: NAKIA Cifuentes [phone] Attestation: IPI Certification I certify that I [...] IPI criteria and is awaiting rehabilitation or long-term facility placement withactive referrals in process José [...] something he normally likes to do at long term, then try to avail him of that [...] Disposition: SNF Team Pager( Coverage 27/01): # [phone] PCP: NAKIA Cifuentes [phone] Attestation: IPI Certification I certify that I [...] IPI criteria and is awaiting rehabilitation or long-term facility placement withactive referrals in process José [...] something he normally likes to do at long term, then try to avail him of that [...] Disposition: SNF Team Pager( Coverage 27/01): # [phone] PCP: NAKIA Cifuentes [phone] Attestation: IPI Certification I certify that I [...] IPI criteria and is awaiting rehabilitation or long-term facility placement withactive referrals in process José Miguel Maher MD 12/24/2017 * Tricia Gerber RN - 12/24/2017 11:13 AM EDT Case reviewed in eDH and with interdisciplinary team. Patient being reviewed for placement at [facility]. Placement is currently on hold due to lack of sitter. Spoke with long term director Lali [phone]. [facility] has been providing sitter for patient during daytime hours. She asked if they could withdraw sitter as [facility] is also providing a sitter at all times. Informed her of plan for transition to [facility]. She reports that [facility] is too far to send long term sitters up there. [facility] for rehab there. Kidney Trimmer spoke with [facility] liaison who stated they have not accepted him as he is a [facility] denial. Left voice mail for Allison Mojica ([facility] for [facility] Senior [facility] Ip Architect) [phone]. Request call back with update of [facility] plans for placement. Case management will continue to follow and assist with discharge planning needs. Tricia Gerber RN Case Design And Sales Consultant of Care Management Pager: [phone] * Tricia Gerber RN - 12/23/2017 3:48 PM EDT Case reviewed with interdisciplinary team. Patient continues to be medically ready. Plan is for possible transfer to [facility] Swing. Per note from [place] today transfer is currently still on hold as we do not have designated sitters. Patient has required 1-2 sitters while in hospital. One is provided by [facility] and the other is provided by [facility]. Case management will continue to follow. Tricia Gerber RN Case Design And Sales Consultant of Care Management [email or web address] Pager: [phone] * José Miguel Maher MD - 12/23/2017 [...] something he normally likes to do at long term, then try to avail him of that [...] Disposition: SNF Team Pager( Coverage 27/01): # [phone] PCP: NAKIA Cifuentes [phone] Attestation: IPI Certification I certify that I [...] IPI criteria and is awaiting rehabilitation or long-term facility placement withactive referrals in process José [...] something he normally likes to do at long term, then try to avail him of that [...] Disposition: SNF Team Pager( Coverage 27/01): # [phone] PCP: NAKIA Cifuentes [phone] Attestation: IPI Certification I certify that I [...] IPI criteria and is awaiting rehabilitation or long-term facility placement withactive referrals in process José Miguel Maher MD 12/22/2017 * Tricia Gerber RN - 12/22/2017 11:18 AM EDT Based on discussions with the multi-disciplinary healthcare team, the patient would benefit from SNF level of care at discharge. ?? I have met with the patient/group sales representative to discuss discharge planning needs. I have provided the [facility], Office of Care Management letter from the [employer] pertaining to rehab referrals. I have also provided a letter describing our affiliations within the [facility] and educated them about their right to choose where referrals are placed. ?? I reviewed the different levels of rehab including SNF, swing, acute and LTAC with the patient/group sales representative. ?? The patient/group sales representative has been provided a list of facilities within their preferred geographic area. ?? I have requested that the patient/group sales representative provide at least three choices for referral. ?? The patient/group sales representative have requested referrals to: 1. [facility] ([facility]) [address] [place] [address] ?? [phone] ? Expected date of discharge: Medically ready Note routed to [employer] Station Attendant who will communicate referrals to facilities and [...] anemia due to acute blood loss 12/09/2017 [facility] Active Non-Hospital Problems Diagnosis ??? Insomnia ??? [...] something he normally likes to do at long term, then try to avail him of that [...] Disposition: SNF Team Pager( Coverage 27/01): # [phone] PCP: NAKIA Cifuentes [phone] Attestation: IPI Certification I certify that I [...] IPI criteria and is awaiting rehabilitation or long-term facility placement withactive referrals in process José [...] something he normally likes to do at long term, then try to avail him of that [...] Disposition: SNF Team Pager(MD Coverage 27/01): # [phone] PCP: NAKIA Cifuentes [phone] Attestation: IPI Certification I certify that I [...] IPI criteria and is awaiting rehabilitation or long-term facility placement withactive referrals in process José Miguel Maher MD 12/20/2017 * Fran Gilliam MD - 12/19/2017 1:10 PM EDT [facility] Medicine Attending Daily Progress Note Admit Date: 09/02/2017 Hospital Day 109 days Active Hospital Problems Diagnosis ??? S/P ORIF left acetabulum fracture 09/04/2017 Dr. Gitajn ??? Acute urinary retention ??? Diabetes insipidus ??? Adrenal insufficiency ??? Panhypopituitarism ??? Seizure disorder ??? Hypothyroidism Resolved Hospital Problems Diagnosis Date Resolved ??? Postoperative anemia due to acute blood loss 12/09/2017 [facility] Active Non-Hospital Problems Diagnosis ??? Insomnia ??? [...] something he normally likes to do at long term, then try to avail him of that [...] behaviors (rehabilitation) and inability to climb stairs (long term) - continue to try to make progress w/ measures described above and ongoing PT/OT Team Pager( Coverage 27/01): #[phone] PCP: NAKIA Cifuentes [phone] Attestation: IPI Certification I certify that I am a D-H credentialed attending provider with admitting privileges and that the patient meets or has met medical necessity to require an inpatient IPI level of care meeting a minimumof two midnights or is on the [facility] inpatient only procedure list (status C) due [...] something he normally likes to do at long term, then try to avail him of that [...] behaviors (rehabilitation) and inability to climb stairs (long term) - continue to try to make progress w/ measures described above and ongoing PT/OT Team Pager( Coverage 27/01): #[phone] PCP: NAKIA Cifuentes [phone] Attestation: IPI Certification I certify that I [...] be re-tasked at discharge - please page #[phone] prior to discharge so follow up can be arranged Kris Mcghee MD, PGY-1 Orthopaedic Surgery Pager #: [phone] No future appointments. Associated attestation - Amy [...] minutes Total timed interventions: 0 minutes Pager: [phone] [facility] Physical Therapy Rehabilitation Department [...] something he normally likes to do at long term, then try to avail him of that [...] behaviors (rehabilitation) and inability to climb stairs (long term) - continue to try to make progress w/ measures described above and ongoing PT/OT Team Pager( Coverage 27/01): #[phone] PCP: NAKIA Cifuentes [phone] Attestation: IPI Certification I certify that I am a D-H credentialed attending provider with admitting privileges and that the patient meets or has met medical necessity to require an inpatient IPI level of care meeting a minimumof two midnights or is on the [facility] inpatient only procedure list (status C) due to: Acetabular fx and hypernatremia FRAN GILLIAM MD 12/17/2017 * Tricia Gerber RN - 12/17/2017 10:27 AM EDT Based on discussions with the multi-disciplinary healthcare team, the patient would benefit from rehab at discharge. ?? OCM requested referrals to: ?? 1. [place] [address] ?? [phone] ? Expected date of discharge: Medically ready Note routed to [facility] Attendant who will communicate referrals to facilities and provide any required information. * Tricia Gerber RN - 12/16/2017 3:08 PM EDT Subha Tejeda [phone] (RN of [facility] who oversees the long term). She reports she is working on finding [...] management will continue to follow. Tricia Gerber, dance costume designer Office of Care Management [email or web address] Pager: [phone] * Fran Gilliam MD - 12/16/2017 11:40 [...] something he normally likes to do at long term, then try to avail him of that [...] behaviors (rehabilitation) and inability to climb stairs (long term) - continue to try to make progress w/ measures described above and ongoing PT/OT Team Pager( Coverage 27/01): #[phone] PCP: NAKIA Cifuentes [phone] Attestation: IPI Certification I certify that I [...] Gilliam MD - 12/15/2017 4:50 PM EDT [facility] Medicine Attending Daily Progress Note Admit Date: 09/02/2017 Hospital Day 104 days Active Hospital Problems Diagnosis ??? S/P ORIF left acetabulum fracture 09/04/2017 Dr. Lance ??? Acute urinary retention ??? Diabetes insipidus ??? Adrenal insufficiency ??? Panhypopituitarism ??? Seizure disorder ??? Hypothyroidism Resolved Hospital Problems Diagnosis Date Resolved ??? Postoperative anemia due to acute blood loss 12/09/2017 [facility] Active Non-Hospital Problems Diagnosis ??? Insomnia ??? [...] something he normally likes to do at long term, then try to avail him of that [...] behaviors (rehabilitation) and inability to climb stairs (long term) - continue to try to make progress w/ measures described above and ongoing PT/OT Team Pager( Coverage 27/01): #[phone] PCP: NAKIA Cifuentes [phone] Attestation: IPI Certification I certify that I am a D-H credentialed attending provider with admitting privileges and that the patient meets or has met medical necessity to require an inpatient IPI level of care meeting a minimumof two midnights or is on the [facility] inpatient only procedure list (status C) due [...] something he normally likes to do at long term, then try to avail him of that [...] behaviors (rehabilitation) and inability to climb stairs (long term) - continue to try to make progress w/ measures described above and ongoing PT/OT Team Pager( Coverage 27/01): #[phone] PCP: NAKIA Cifuentes [phone] Attestation: IPI Certification I certify that I am a D-H credentialed attending provider with admitting privileges and that the patient meets or has met medical necessity to require an inpatient IPI level of care meeting a minimumof two midnights or is on the [facility] inpatient only procedure list (status C) due [...] something he normally likes to do at long term, then try to avail him of that [...] behaviors (rehabilitation) and inability to climb stairs (long term) - continue to try to make progress w/ measures described above and ongoing PT/OT Team Pager( Coverage 27/01): #[phone] PCP: NAKIA Cifuentes [phone] Attestation: IPI Certification I certify that I am a D-H credentialed attending provider with admitting privileges and that the patient meets or has met medical necessity to require an inpatient IPI level of care meeting a minimumof two midnights or is on the [facility] inpatient only procedure list (status C) due [...] anemia due to acute blood loss 12/09/2017 [facility] Active Non-Hospital Problems Diagnosis ??? Insomnia ??? [...] something he normally likes to do at long term, then try to avail him of that [...] behaviors (rehabilitation) and inability to climb stairs (long term) - continue to try to make progress w/ measures described above and ongoing PT, respectively Team Pager(MD Coverage 27/01): #[phone] PCP: NAKIA Cifuentes [phone] Attestation: IPI Certification I certify that I am a D-H credentialed attending provider with admitting privileges and that the patient meets or has met medical necessity to require an inpatient IPI level of care meeting a minimumof two midnights or is on the [facility] inpatient only procedure list (status C) due to: Acetabular fx and hypernatremia PCP: NAKIA Cifuentes [phone] DANAY MONGE MD 12/12/2017 * Danay Monge [...] 04-SEP-2017 22:30, Rate slower Confirmed by MD hO, Sukhi Walker ([id number]) on 12/06/2017 10:46:47 AM [...] something he normally likes to do at long term, then try to avail him of that [...] behaviors (rehabilitation) and inability to climb stairs (long term) - continue to try to make progress w/ measures described above and ongoing PT, respectively Team Pager( Coverage 27/01): #[phone] PCP: NAKIA Cifuentes [phone] Attestation: IPI Certification I certify that I am a D-H credentialed attending provider with admitting privileges and that the patient meets or has met medical necessity to require an inpatient IPI level of care meeting a minimumof two midnights or is on the [facility] inpatient only procedure list (status C) due to: Acetabular fx and hypernatremia PCP: NAKIA Cifuentes [phone] DANAY MONGE MD 12/11/2017 * Danay Monge MD - 12/10/2017 12:12 PM EDT [facility] Medicine Attending Daily Progress Note Admit [...] something he normally likes to do at long term, then try to avail him of that [...] behaviors (rehabilitation) and inability to climb stairs (long term) - continue to try to make progress w/ measures described above and ongoing PT, respectively Team Pager( Coverage 27/01): #[phone] PCP: NAKIA Cifuentes [phone] Attestation: IPI Certification I certify that I am a D-H credentialed attending provider with admitting privileges and that the patient meets or has met medical necessity to require an inpatient IPI level of care meeting a minimumof two midnights or is on the [facility] inpatient only procedure list (status C) due to: Acetabular fx and hypernatremia PCP: NAKIA Cifuentes [phone] DANAY MONGE MD 12/10/2017 * Ren Sanchez [...] something he normally likes to do at long term, then try to avail him of that [...] behaviors (rehabilitation) and inability to climb stairs (long term) - continue to try to make progress w/ measures described above and ongoing PT, respectively Team Pager( Coverage 27/01): #[phone] PCP: NAKIA Cifuentes [phone] Attestation: IPI Certification I certify that I am a D-H credentialed attending provider with admitting privileges and that the patient meets or has met medical necessity to require an inpatient IPI level of care meeting a minimumof two midnights or is on the [facility] inpatient only procedure list (status C) due to: Acetabular fx and hypernatremia PCP: NAKIA Cifuentes [phone] REN SANCHEZ III, MD 12/09/2017 * Danay [...] something he normally likes to do at long term, then try to avail him of that [...] behaviors (rehabilitation) and inability to climb stairs (long term) - continue to try to make progress w/ measures described above and ongoing PT, respectively Team Pager( Coverage 27/01): #[phone] PCP: NAKIA Cifuentes [phone] Attestation: IPI Certification I certify that I am a D-H credentialed attending provider with admitting privileges and that the patient meets or has met medical necessity to require an inpatient IPI level of care meeting a minimumof two midnights or is on the [facility] inpatient only procedure list (status C) due to: Acetabular fx and hypernatremia PCP: NAKIA Cifuentes [phone] DANAY MONGE MD 12/08/2017 * Danay Monge [...] Date Resolved No resolved problems to display. [facility] Active Non-Hospital Problems Diagnosis ??? Insomnia ??? [...] 04-SEP-2017 22:30, Rate slower Confirmed by MD hO, Sukhi Walker ([id number]) on 12/06/2017 10:46:47 AM [...] something he normally likes to do at long term, then try to avail him of that [...] behaviors (rehabilitation) and inability to climb stairs (long term) - continue to try to make progress w/ measures described above and ongoing PT, respectively Team Pager( Coverage 27/01): #[phone] PCP: NAKIA Cifuentes [phone] Attestation: IPI Certification I certify that I am a D-H credentialed attending provider with admitting privileges and that the patient meets or has met medical necessity to require an inpatient IPI level of care meeting a minimumof two midnights or is on the [facility] inpatient only procedure list (status C) due to: Acetabular fx and hypernatremia PCP: NAKIA Cifuentes [phone] DANAY MONGE MD 12/07/2017 * Danay Monge [...] something he normally likes to do at long term, then try to avail him of that [...] behaviors (rehabilitation) and inability to climb stairs (long term) - continue to try to make progress w/ measures described above and ongoing PT, respectively Team Pager( Coverage 27/01): #[phone] PCP: NAKIA Cifuentes [phone] Attestation: IPI Certification I certify that I am a D-H credentialed attending provider with admitting privileges and that the patient meets or has met medical necessity to require an inpatient IPI level of care meeting a minimumof two midnights or is on the [facility] inpatient only procedure list (status C) due to: Acetabular fx and hypernatremia PCP: NAKIA Cifuentes [phone] DANAY MONGE MD 12/06/2017 * Constantino Courtney MD - 12/05/2017 2:35 PM EDT [facility] Medicine Attending Daily Progress Note Admit [...] something he normally likes to do at long term, then try to avail him of that [...] behaviors (rehabilitation) and inability to climb stairs (long term) - continue to try to make progress w/ measures described above and ongoing PT, respectively Team Pager( Coverage 27/01): #[phone] PCP: NAKIA Cifuentes [phone] Attestation: IPI Certification I certify that I [...] something he normally likes to do at long term, then try to avail him of that [...] something he normally likes to do at long term, then try to avail him of that [...] behaviors (rehabilitation) and inability to climb stairs (long term) - continue to try to make progress w/ measures described above and ongoing PT, respectively Team Pager( Coverage 27/01): #[phone] PCP: NAKIA Cifuentes [phone] Attestation: IPI Certification I certify that I am a D-H credentialed attending provider with admitting privileges and that the patient meets or has met medical necessity to require an inpatient IPI level of care meeting a minimumof two midnights or is on the [facility] inpatient only procedure list (status C) due [...] something he normally likes to do at long term, then try to avail him of that [...] something he normally likes to do at long term, then try to avail him of that [...] behaviors (rehabilitation) and inability to climb stairs (long term) - continue to try to make progress w/ measures described above and ongoing PT, respectively Team Pager( Coverage 27/01): #[phone] PCP: NAKIA Cifuentes [phone] Attestation: IPI Certification I certify that I am a D-H credentialed attending provider with admitting privileges and that the patient meets or has met medical necessity to require an inpatient IPI level of care meeting a minimumof two midnights or is on the [facility] inpatient only procedure list (status C) due to: Acetabular fx and hypernatremia FRAN GILLIAM MD 12/03/2017 * Yadi Mccauley MD - 12/03/2017 2:25 PM EDT ENDOCRINOLOGY FOLLOW UP INPATIENT NOTE [facility] Name: Miguel Angel Mason Date of [...] today, suspect left hip pain. Per bedside nurse care manager, fluid restriction of 3.2L is being maintained. Urination is unchanged but unable to be truly tracked. Past Surgical History: Procedure Laterality Date ??? PRO OPEN BOTTOM BLEACHER FIX ACETABULAR FX Left 09/04/2017 @OPEN TREATMENT, ACETABULAR FX (WRVU 25.41) performed by Amy Lance MD at [facility] Allergies Allergen Reactions ??? [...] fluid restriction to avoid hyponatremia/over correction --- [place] sodium level 138-145. --- Continue to try [...] something he normally likes to do at long term, then try to avail him of that [...] something he normally likes to do at long term, then try to avail him of that [...] behaviors (rehabilitation) and inability to climb stairs (long term) - continue to try to make progress w/ measures described above and ongoing PT, respectively Team Pager( Coverage 27/01): #[phone] PCP: NAKIA Cifuentes [phone] Attestation: IPI Certification I certify that I [...] not included. ENDOCRINOLOGY FOLLOW UP INPATIENT NOTE [facility] Name: Miguel Angel Mason Date of [...] History: Procedure Laterality Date ??? PRO OPEN BOTTOM BLEACHER FIX ACETABULAR FX Left 09/04/2017 @OPEN TREATMENT, ACETABULAR FX (WRVU 25.41) performed by Amy Lance MD at [facility] Allergies Allergen Reactions ??? [...] something he normally likes to do at long term, then try to avail him of that [...] something he normally likes to do at long term, then try to avail him of that [...] behaviors (rehabilitation) and inability to climb stairs (long term) - continue to try to make progress w/ measures described above and ongoing PT, respectively Team Pager( Coverage 27/01): #[phone] PCP: NAKIA Cifuentes [phone] Attestation: IPI Certification I certify that I am a D-H credentialed attending provider with admitting privileges and that the patient meets or has met medical necessity to require an inpatient IPI level of care meeting a minimumof two midnights or is on the [facility] inpatient only procedure list (status C) due [...] something he normally likes to do at long term, then try to avail him of that [...] something he normally likes to do at long term, then try to avail him of that [...] behaviors (rehabilitation) and inability to climb stairs (long term) - continue to try to make progress w/ measures described above and ongoing PT, respectively Team Pager( Coverage 27/01): #[phone] PCP: NAKIA Cifuentes [phone] Attestation: IPI Certification I certify that I am a D-H credentialed attending provider with admitting privileges and that the patient meets or has met medical necessity to require an inpatient IPI level of care meeting a minimumof two midnights or is on the [facility] inpatient only procedure list (status C) due [...] something he normally likes to do at long term,then try to avail him of that here. [...] something he normally likes to do at long term, then try to avail him of that -Check bladder scan prn -Bowel regimen -net bed for safety IV access: None Tubes/Drains: None DVT PPX: None as moving alot Anticipated Disposition: Discharge limited by behaviors (rehabilitation) and inability to climb stairs (long term) - continue to try to make progress w/ measures described above and ongoing PT, respectively Team Pager( Coverage 27/01): #[phone] PCP: NAKIA Cifuentes [phone] Attestation: IPI Certification I certify that I am a D-H credentialed attending provider with admitting privileges and that the patient meets or has met medical necessity to require an inpatient IPI level of care meeting a minimumof two midnights or is on the [facility] inpatient only procedure list (status C) due [...] acetabulum fracture on 09/04/17. He lives in long term setting on 2nd level and unable to [...] far. Left messages today for: Lc Childress ([facility] Machine Stapler) [phone], Subha Ileana [phone] (RN of [facility] oversees the long term), and patients sister/guardian, Bettina Mason [phone]. To further discuss discharge options. Case management will continue to follow and assist with discharge planning needs. Tricia Gerber, dance costume designer Office of Care Management [email or web address] Pager: [phone] * Debbie Keller DT - 11/28/2017 3:33 [...] Assessment: Patient seen for nutrition follow up. Kidney Trimmer able to speak with nursing on pt's [...] Name: Miguel Angel Mason Date: 11/28/17 Room: [address] [place] [address] HPI: Miguel Angel Mason is a 27 [...] History: Procedure Laterality Date ??? PRO OPEN BOTTOM BLEACHER FIX ACETABULAR FX Left 09/04/2017 @OPEN TREATMENT, ACETABULAR FX (WRVU 25.41) performed by Amy Lance MD at [facility] No family history on [...] MD Endocrinology, Diabetes and Metabolism Fellow Pager #[phone] 11/28/2017 I reviewed this patient with Dr [...] -change methocarbamol to PRN -Discharge limited to long term with behaviors (rehabilitation) and inability to climb stairs (long term) 2. 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 Continue to reassess. -Check bladder scan prn -Bowel regimen -Trying a net bed for safety - dc if worsening agitation IV access: None Tubes/Drains: None DVT PPX: None as moving alot Anticipated Disposition: Pending improved mobility and weight bearing status Team Pager( Coverage 27/01): #[phone] PCP: NAKIA Cifuentes [phone] Attestation: IPI Certification I certify that I am a D-H credentialed attending provider with admitting privileges and that the patient meets or has met medical necessity to require an inpatient IPI level of care meeting a minimumof two midnights or is on the [facility] inpatient only procedure list (status C) due to: Acetabular fx and hypernatremia REN SANCHEZ III, MD 11/28/2017 * Ren Walters OTA - 11/28/2017 8:25 AM EDT Attempted to see pt this morning, pt finishing with PT and presenting with increased negative behaviors, at this time. Will attempt again at a more appropriate time. Ren MAYA Pager: [phone] * Celine Power MD - 11/28/2017 6:03 [...] be re-tasked at discharge - please page #[phone] prior to discharge so follow up can be arranged Celine Power MD, PGY-1 Orthopaedic Surgery Pager #: [phone] No future appointments. Associated attestation - Amy [...] -change methocarbamol to PRN -Discharge limited to long term with behaviors (rehabilitation) and inability to climb stairs (long term) 2. 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 Continue to reassess. -Check bladder scan prn -Bowel regimen -Trying a net bed for safety - dc if worsening agitation IV access: None Tubes/Drains: None DVT PPX: None as moving alot Anticipated Disposition: Pending improved mobility and weight bearing status Team Pager( Coverage 27/01): #[phone] PCP: NAKIA Cifuentes [phone] Attestation: IPI Certification I certify that I [...] expressing himself -d/c methocarbamol -Discharge limited to long term with behaviors (rehabilitation) and inability to climb stairs (long term) 2. 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 Continue to reassess. -Check bladder scan prn -Bowel regimen -Trying a net bed for safety - dc if worsening agitation IV access: None Tubes/Drains: None DVT PPX: None as moving alot Anticipated Disposition: Pending improved mobility and weight bearing status Team Pager( Coverage 27/01): #[phone] PCP: NAKIA Cifuentes [phone] Attestation: IPI Certification I certify that I am a D-H credentialed attending provider with admitting privileges and that the patient meets or has met medical necessity to require an inpatient IPI level of care meeting a minimumof two midnights or is on the [facility] inpatient only procedure list (status C) due [...] gm TID on 11/24) -Discharge limited to long term with behaviors (rehabilitation) and inability to climb stairs (long term) 2. 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 Continue to reassess. -Check bladder scan prn -Bowel regimen -Trying a net bed for safety - dc if worsening agitation IV access: None Tubes/Drains: None DVT PPX: Lovenox Anticipated Disposition: Pending improved mobility and weight bearing status Team Pager( Coverage 27/01): #[phone] PCP: NAKIA Cifuentes [phone] Attestation: IPI Certification I certify that I [...] RN - 11/25/2017 4:17 AM EDT 11/24/17-11/25/17 [id number] Patient is not wearing masimo due to [...] to suggest infection. 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 Continue to reassess. -Check bladder scan prn -Bowel regimen -Trying a net bed for safety - dc if worsening agitation IV access: None Tubes/Drains: None DVT PPX: Lovenox Anticipated Disposition: Pending improved mobility and weight bearing status Team Pager( Coverage 27/01): #[phone] PCP: NAKIA Cifuentes [phone] Attestation: IPI Certification I certify that I am a D-H credentialed attending provider with admitting privileges and that the patient meets or has met medical necessity to require an inpatient IPI level of care meeting a minimumof two midnights or is on the [facility] inpatient only procedure list (status C) due to: Acetabular fx and hypernatremia REN SANCHEZ III, MD 11/24/2017 * Shruti Lozoya RN - 11/24/2017 6:09 AM EDT 11/23/17-11/24/17 [id number] Patient not wearing masimo due to safety [...] to suggest infection. 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 Continue to reassess. -Check bladder scan prn -Bowel regimen -Trying a net bed for safety - dc if worsening agitation IV access: None Tubes/Drains: None DVT PPX: Lovenox Anticipated Disposition: Pending improved mobility and weight bearing status Team Pager( Coverage 27/01): # PCP: NAKIA Cifuentes [phone] Attestation: IPI Certification I certify that I [...] to suggest infection. 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 -Discharge limited to long term with behaviors (rehabilitation) and inability to climb stairs (long term) 2. 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 Continue to reassess. -Check bladder scan prn -Bowel regimen -Trying a net bed for safety - dc if worsening agitation IV access: None Tubes/Drains: None DVT PPX: Lovenox Anticipated Disposition: Pending improved mobility and weight bearing status Team Pager(MD Coverage 27/01): #[phone] PCP: NAKIA Cifuentes [phone] Attestation: IPI Certification I certify that I am a D-H credentialed attending provider with admitting privileges and that the patient meets or has met medical necessity to require an inpatient IPI level of care meeting a minimumof two midnights or is on the [facility] inpatient only procedure list (status C) due to: Acetabular fx and hypernatremia REN SANCHEZ III, MD 11/22/2017 * Crista Aguilar MD - 11/21/2017 11:26 AM EDT [facility] Medicine Attending Daily Progress Note Admit [...] to suggest infection. Treating pain as possible tram driver thoughcontinue to assess as has been [...] PO TID for musclespasms. -Discharge limited to long term with behaviors (rehabilitation) and inability to climb stairs (long term) 2. 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 Continue to reassess. -Check bladder scan prn -Bowel regimen -Trying a net bed today for safety - dc if worsening agitation IV access: None Tubes/Drains: None DVT PPX: Lovenox Anticipated Disposition: Pending improved mobility and weight bearing status Team Pager( Coverage 27/01): #[phone] PCP: NAKIA Cifuentes [phone] Attestation: IPI Certification I certify that I am a D-H credentialed attending provider with admitting privileges and that the patient meets or has met medical necessity to require an inpatient IPI level of care meeting a minimumof two midnights or is on the [facility] inpatient only procedure list (status C) due to: Acetabular fx and hypernatremia Crista Aguilar MD 11/21/2017 * Ceilne Power MD - 11/21/2017 8:11 AM EDT Orthopaedic Surgery Brief Progress Note: Patient is 11 weeks s/p ORIF left acetabular fx X-rays reviewed and patient is ok to advance to WBAT in bilateral lower extremities, assistive devices at all times. Celine Power MD #[id number] Associated attestation - Amy Lance MD - [...] to suggest infection. 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 Continue to reassess. -Check bladder scan prn -Bowel regimen -Trying a net bed today for safety - dc if worsening agitation IV access: None Tubes/Drains: None DVT PPX: Lovenox Anticipated Disposition: Pending improved mobility and weight bearing status Team Pager( Coverage 27/01): #[phone] PCP: NAKIA Cifuentes [phone] Attestation: IPI Certification I certify that I [...] with pt at a later date. Pager: [phone] [place] PTA Physical Therapy Rehabilitation Department [...] at a later time. Ren MAYA Pager: [phone] * Crista Aguilar MD - 11/19/2017 10:43 [...] to suggest infection. 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 Continue to reassess. -Check bladder scan prn -Bowel regimen IV access: None Tubes/Drains: None DVT PPX: Lovenox Anticipated Disposition: Pending improved mobility Team Pager( Coverage 27/01): #[phone] PCP: NAKIA Cifuentes [phone] Attestation: IPI Certification I certify that I am a D-H credentialed attending provider with admitting privileges and that the patient meets or has met medical necessity to require an inpatient IPI level of care meeting a minimumof two midnights or is on the [facility] inpatient only procedure list (status C) due [...] on my visit today. Spoke with caregiver, TOP LIFT CUTTER and having a calmer day. No reported [...] to suggest infection. 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 Continue to reassess. -Check bladder scan prn -Bowel regimen IV access: None Tubes/Drains: None DVT PPX: Lovenox Anticipated Disposition: Pending improved mobility Team Pager( Coverage 27/01): #[phone] PCP: NAKIA Cifuentes [phone] Attestation: IPI Certification I certify that I am a D-H credentialed attending provider with admitting privileges and that the patient meets or has met medical necessity to require an inpatient IPI level of care meeting a minimumof two midnights or is on the [facility] inpatient only procedure list (status C) due [...] to suggest infection. 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 2. 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 Continue to reassess. -Check bladder scan prn -Bowel regimen IV access: None Tubes/Drains: None DVT PPX: Lovenox Anticipated Disposition: Pending improved mobility Team Pager( Coverage 27/01): #[phone] PCP: NAKIA Cifuentes [phone] Attestation: IPI Certification I certify that I am a D-H credentialed attending provider with admitting privileges and that the patient meets or has met medical necessity to require an inpatient IPI level of care meeting a minimumof two midnights or is on the [facility] inpatient only procedure list (status C) due to: Acetabular fx and hypernatremia Crista Aguilar MD 11/17/2017 Addendum: Called for patient falling from bed. Apparently was on edge of bed, lunged forward and fell on leftside. May have hit head. No focal bruising, swelling on scalp. Corporate Associate Attorney 5/5, strength in legs observed symmetric. Right pupil slightly smaller than left, reactive. Discussed with ortho as was due for films on 11/21 regardless. PA/lateral hip, Judet hip. I will also XR knee given hard to localize pain. Tried work number for Bettina but no answer. * Crista Aguilar MD - 11/16/2017 12:05 PM EDT [facility] Medicine Attending Daily Progress Note Admit [...] to suggest infection. 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 Continue to reassess. -Check bladder scan -Bowel regimen IV access: None Tubes/Drains: None DVT PPX: Lovenox Anticipated Disposition: Pending improved mobility Team Pager( Coverage 27/01): #[phone] PCP: NAKIA Cifuentes [phone] Attestation: IPI Certification I certify that I am a D-H credentialed attending provider with admitting privileges and that the patient meets or has met medical necessity to require an inpatient IPI level of care meeting a minimumof two midnights or is on the [facility] inpatient only procedure list (status C) due [...] 49 mmol/L U Chloride 75 mmol/L Specific [place], Urine Result Value Ref Range Spec [place] UA 1.025 1.002 - 1.030 Assessment: 27 [...] them as documented. Neo Coleman DO, MS Vice President Of [employer] plater Section of Endocrinology [facility] * Crista Aguilar MD - 11/15/2017 [...] that amount. They record intake at his long term. Physical Exam Vitals Range last 24 hrs [...] behaviors (rehabilitation) and inability to climb stairs (long term). -Prior attending discussed with orthopedics due to [...] Pending improved mobility Team Pager( Coverage 27/01): #[phone] PCP: NAKIA Cifuentes [phone] Attestation: IPI Certification I certify that I am a D-H credentialed attending provider with admitting privileges and that the patient meets or has met medical necessity to require an inpatient IPI level of care meeting a minimumof two midnights or is on the [facility] inpatient only procedure list (status C) due to: Acetabular fx and hypernatremia Crista Aguilar MD 11/15/2017 * Yossi Morin DO - 11/14/2017 2:52 PM EDT [facility] MEDICINE ATTENDING DAILY PROGRESS NOTE Patient: Miguel Angel Mason, 1990, [id number] Physician: Yossi Morin DO, Pager: [phone], [facility] Medicine Service Admit Date: 09/02/2017 Date [...] behaviors (rehabilitation) and inability to climb stairs (long term). Discussed with orthopedics due to increasing pain [...] to look for alternative placement in a long term. IPI Certification I certify that I am a D-H credentialed attending provider with admitting privileges and that the patient meets or has met medical necessity to require an inpatient IPI level of care meeting a minimumof two midnights or is on the [facility] inpatient only procedure list (status C) due to: the patient has met Inpatient IPI criteria and is awaiting rehabilitation or long-term facility placement withactive referrals in process MEDICATIONS: [...] 1 drop TID PRN Yossi Morin DO 0018 Hospitalist 11/14/2017 2:52 PM * Celine Power [...] reasonable to consider XR. Celine Power MD #[id number] * Yossi Morin DO - 11/13/2017 1:36 PM EDT [facility] MEDICINE ATTENDING DAILY PROGRESS NOTE Patient: Miguel Angel Mason, 1990, [id number] Physician: Yossi Morin DO, Pager: [phone], [facility] Medicine Service Admit Date: 09/02/2017 Date [...] behaviors (rehabilitation) and inability to climb stairs (long term). 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 IPI Certification I certify that I am a D-H credentialed attending provider with admitting privileges and that the patient meets or has met medical necessity to require an inpatient IPI level of care meeting a minimumof two midnights or is on the [facility] inpatient only procedure list (status C) due to: the patient has met Inpatient IPI criteria and is awaiting rehabilitation or long-term facility placement withactive referrals in process MEDICATIONS: [...] Assessment: Patient seen for nutrition follow up. Kidney Trimmer able to speak with nursing on pt's [...] be re-tasked at discharge - please page #[phone] prior to discharge so follow up can be arranged. If remains inpatient, will plan on repeat imaging ~11/18 to assess interval healing (will be almost 11 weeks form operation) Celine Power MD, PGY-1 Orthopaedic Surgery Pager #: [phone] Future Appointments Date Time Provider Department Center 11/21/2017 10:45 AM [facility] DX ROOM 2 Xray [facility] 11/21/2017 11:40 AM Amy Lance MD [facility]A [facility] Associated attestation - Amy Lance MD - 11/15/2017 7:05 AM EDT Patient seen and examined. Agree with resident note. Plan for 10 week follow-up this week. Mandy Lance MD Department of Orthopaedics 11/15/17 * Yossi Morin DO - 11/12/2017 1:10 PM EDT [facility] MEDICINE ATTENDING DAILY PROGRESS NOTE Patient: Miguel Angel Mason, 1990, [id number] Physician: Yossi Morin DO, Pager: [phone], Hospital Medicine Service Admit Date: 09/02/2017 Date [...] behaviors (rehabilitation) and inability to climb stairs (long term). 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 IPI Certification I certify that I am a D-H credentialed attending provider with admitting privileges and that the patient meets or has met medical necessity to require an inpatient IPI level of care meeting a minimumof two midnights or is on the [facility] inpatient only procedure list (status C) due to: the patient has met Inpatient IPI criteria and is awaiting rehabilitation or long-term facility placement withactive referrals in process MEDICATIONS: [...] when patient is more appropriate. Noel EPSTEIN/Ramone Pager:[phone] Occupational Therapy * Tricia Gerber RN - 11/11/2017 4:21 PM EDT Case reviewed in eDH and with interdisciplinary team. Per MD patient is medically ready for discharge. Case management has been working on discharge plan. Referrals have been submitted to SNF's throughout [place]. Left msg for both Lc Childress [phone] and Subha Tejeda [phone]. To further discuss discharge options. Tricia Gerber RN Case Design And Sales Consultant of Care Management [email or web address] Pager: [phone] * Yossi Morin DO - 11/11/2017 3:18 PM EDT [facility] MEDICINE ATTENDING DAILY PROGRESS NOTE Patient: Miguel Angel Mason, 1990, [id number] Physician: Yossi Morin DO, Pager: [phone], [facility] Medicine Service Admit Date: 09/02/2017 Date [...] behaviors (rehabilitation) and inability to climb stairs (long term). 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 IPI Certification I certify that I am a D-H credentialed attending provider with admitting privileges and that the patient meets or has met medical necessity to require an inpatient IPI level of care meeting a minimumof two midnights or is on the [facility] inpatient only procedure list (status C) due to: the patient has met Inpatient IPI criteria and is awaiting rehabilitation or long-term facility placement withactive referrals in process MEDICATIONS: [...] 1 drop TID PRN Yossi Morin DO 9837 Hospitalist 11/11/2017 3:18 PM * Yossi Morin DO - 11/10/2017 2:21 PM EDT HOSPITAL MEDICINE ATTENDING DAILY PROGRESS NOTE Patient: Miguel Angel Mason, 1990, [id number] Physician: Yossi Morin DO, Pager: [phone], [facility] Medicine Service Admit Date: 09/02/2017 Date [...] behaviors (rehabilitation) and inability to climb stairs (long term). 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 IPI Certification I certify that I am a D-H credentialed attending provider with admitting privileges and that the patient meets or has met medical necessity to require an inpatient IPI level of care meeting a minimumof two midnights or is on the [facility] inpatient only procedure list (status C) due to: the patient has met Inpatient IPI criteria and is awaiting rehabilitation or long-term facility placement withactive referrals in process MEDICATIONS: [...] 4:06 PM EDT Pt being transferred to [facility]. Report given to RN. Jeannette Don RN * Yossi Morin DO - 11/09/2017 12:18 PM EDT [facility] MEDICINE ATTENDING DAILY PROGRESS NOTE Patient: Miguel Angel Mason, 1990, [id number] Physician: Yossi Morin DO, Pager: [phone], [facility] Medicine Service Admit Date: 09/02/2017 Date [...] minimumof two midnights or is on the [facility] inpatient only procedure list (status C) due to: the patient has met Inpatient IPI criteria and is awaiting rehabilitation or long-term facility placement withactive referrals in process MEDICATIONS: [...] PROGRESS NOTE Patient: Miguel Angel Mason, 1990, [id number] Physician: Yossi Morin DO, Pager: [phone], [facility] Medicine Service Admit Date: 09/02/2017 Date [...] minimumof two midnights or is on the [facility] inpatient only procedure list (status C) due to: the patient has met Inpatient IPI criteria and is awaiting rehabilitation or long-term facility placement withactive referrals in process MEDICATIONS: [...] 1 drop TID PRN Yossi Morin DO 5073 Hospitalist 11/08/2017 2:47 PM * Isabel Donis [...] IPI criteria and is awaiting rehabilitation or long-term facility placement withactive referrals in process Team Pager( Coverage 27/01): #[phone] PCP: NAKIA Cifuentes [phone] Isabel Donis MD 11/07/2017 * Isabel Donis [...] minimumof two midnights or is on the [facility] inpatient only procedure list (status C) due to: the patient has met Inpatient IPI criteria and is awaiting rehabilitation or long-term facility placement withactive referrals in process Team Pager( Coverage 27/01): #[phone] PCP: NAKIA Cifuentes [phone] Isabel Donis MD 11/06/2017 * Isabel Donis [...] IPI criteria and is awaiting rehabilitation or long-term facility placement withactive referrals in process Team Pager( Coverage 27/01): #[phone] PCP: NAKIA Cifuentes [phone] Isabel Donis MD 11/05/2017 * Isabel Donis [...] IPI criteria and is awaiting rehabilitation or long-term facility placement withactive referrals in process Team Pager(MD Coverage 27/01): #[phone] PCP: NAKIA Cifuentes [phone] Isabel Donis MD 11/04/2017 * Celine Power [...] be re-tasked at discharge - please page #[phone] prior to discharge so follow up can be arranged. If remains inpatient, will plan on repeat imaging about 11/18 to assess interval healing Celine Power MD, PGY-1 Orthopaedic Surgery Pager #: [phone] Future Appointments Date Time Provider Department Center 11/21/2017 10:45 AM [facility] DX ROOM 2 Xray [facility] Rad [...] minimumof two midnights or is on the [facility] inpatient only procedure list (status C) due to: the patient has met Inpatient IPI criteria and is awaiting rehabilitation or long-term facility placement withactive referrals in process Team Pager( Coverage 27/01): #[phone] PCP: NAKIA Cifuentes [phone] Isabel Donis MD 11/03/2017 * Isabel Donis [...] IPI criteria and is awaiting rehabilitation or long-term facility placement withactive referrals in process Team Pager( Coverage 27/01): #[phone] PCP: NAKIA Cifuentes [phone] Isabel Donis MD 11/02/2017 * Isabel Donis [...] IPI criteria and is awaiting rehabilitation or long-term facility placement withactive referrals in process Team Pager( Coverage 27/01): #[phone] PCP: NAKIA Cifuentes [phone] Isabel Donis MD 11/01/2017 * Samson Alvarez - 10/31/2017 2:55 PM EDT Commercial Loan Reviewer Encounter Note Patient Name: Miguel Angel Mason : [id number] MR#: [id number] Admit Date: 09/02/2017 9:23 PM Hospital Day 59 days Narrative: Visited to introduce and assess acceptance of Commercial Loan Reviewer services. Assessment: Patient coping positively with stresses of illness/hospitalization at this time. Mr. Huggins was there and says that Miguel Angel is slowly feeling better. 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 Intervention and Outcome:provided listening presence to care provider. Commercial Loan Reviewer services accepted.Conversation to build trusting relationship.Provided pastoral presence. Follow-up: yes Time in Direct Care:15 Mins Samson Alvarez 10/31/2017 * Ren Walters OTA - 10/31/2017 11:30 AM EDT Attempted to see pt this morning, pt currently working with PT. Will attempt again at a later time. Ren MAYA Pager: [phone] * Dillon Koch MD - 10/31/2017 7:59 [...] minimumof two midnights or is on the [facility] inpatient only procedure list (status C) due to: the patient has met Inpatient IPI criteria and is awaiting rehabilitation or long-term facility placement withactive referrals in process Team Pager( Coverage 27/01): #[phone] PCP: NAKIA Cifuentes [phone] DILLON KOCH MD 10/31/2017 * Debbie Keller, [...] Assessment: Patient seen for nutrition follow up. Kidney Trimmer able to speak with pt's caregiver (Soila) on pt's nutritional care. Soila reported a good appetite without difficulty chewing or swallowing. He is tolerating current diet without nausea or vomiting. Soila stated pt consumed oj, chocolate milk, 1/2 fruit cup (still working on), home fries, 1/4 arabic toast, sausage, and white toast. Soila stated, he was really tired this morning. He didn't sleep well last night. Nursing notes [id number]% PO intake on 10/29, 10/28, + 10/27. [...] at a more appropriate time. Ren MAYA Pager:[phone] * Dillon Koch MD - 10/30/2017 7:58 [...] Intake/Output Summary (Last 24 hours) at 10/30/17 7478 Last data filed at 10/30/17 0647 Gross [...] minimumof two midnights or is on the [facility] inpatient only procedure list (status C) due to: the patient has met Inpatient IPI criteria and is awaiting rehabilitation or long-term facility placement withactive referrals in process Team Pager(MD Coverage 27/01): #[phone] PCP: NAKIA Cifuentes [phone] DILLON KOCH MD 10/30/2017 * Dillon Koch [...] IPI criteria and is awaiting rehabilitation or long-term facility placement withactive referrals in process Team Pager(MD Coverage 27/01): #[phone] PCP: NAKIA Cifuentes [phone] DILLON KOCH MD 10/29/2017 * Dillon Koch MD - 10/28/2017 7:52 AM EDT [facility] Medicine Attending Daily Progress Note Admit [...] IPI criteria and is awaiting rehabilitation or long-term facility placement withactive referrals in process Team Pager(MD Coverage 27/01): #[phone] PCP: NAKIA Cifuentes [phone] DILLON KOCH MD 10/28/2017 * Skyla Aranda [...] be re-tasked at discharge - please page #[phone] prior to discharge so follow up can be arranged. Skyla Aranda MD, PGY-1 Orthopaedic Surgery Pager #: [phone] Future Appointments Date Time Provider Department Center 11/21/2017 10:45 AM [facility] DX ROOM 2 Xray Leb Rad [...] minimumof two midnights or is on the [facility] inpatient only procedure list (status C) due to: the patient has met Inpatient IPI criteria and is awaiting rehabilitation or long-term facility placement withactive referrals in process Team Pager( Coverage 27/01): #[phone] PCP: NAKIA Cifuentes [phone] DILLON KOCH MD 10/27/2017 * Dillon Koch [...] IPI criteria and is awaiting rehabilitation or long-term facility placement withactive referrals in process Team Pager( Coverage 27/01): #[phone] PCP: NAKIA Cifuentes [phone] DILLON KOCH MD 10/26/2017 * Jevon Menendez, RN - 10/25/2017 4:12 PM EDT 3W Clinical Nurse Door Clamper spoke with Lali Walker, supervisor cooler service, this afternoon. Lali expressed concern over not having a caregiver with Miguel Angel as originally intended today and the homes ability to continue to send caregivers to the hospital if asked to leave. Explained to Lali that [place] agitation and redirect-ability were significantly different than recent prior days. After discussion with toy parts former supervisor, it was agreed that today, and TOP LIFT CUTTER sitter from [facility] would continue to sit with Miguel Angelbut we would be happy to have caregivers back anytime. Jevon Menendez, RN * Rosie Marinelli RN - 10/25/2017 1:50 PM EDT Patient's nurse care manager asked to leave by this RN r/t patient's agitation and interactions witnessed by this RN and supplemental staff. Informed caregiver that her language and interactions with Miguel Angel were agitating him more than ever noticed before with other caregivers. Caregiver Vanessa states, WellI'll call my toy parts former supervisor. Continues to remain at bedside for an additional 15 minutes before leaving. Patient immediately settles with an TOP LIFT CUTTER at bedside engaging him in activities. MD [...] be helpful, safe, and supportive. [facility] community nurse briefed. * Dillon Koch MD - 10/25/2017 [...] IPI criteria and is awaiting rehabilitation or long-term facility placement withactive referrals in process Team Pager(MD Coverage 27/01): #[phone] PCP: NAKIA Cifuentes [phone] DILLON KOCH MD 10/25/2017 * Rosie Marinelli [...] IPI criteria and is awaiting rehabilitation or long-term facility placement withactive referrals in process Team Pager( Coverage 27/01): #[phone] PCP: NAKIA Cifuentes [phone] Isabel Donis MD 10/24/2017 * Isabel Donis [...] minimumof two midnights or is on the [facility] inpatient only procedure list (status C) due to: the patient has met Inpatient IPI criteria and is awaiting rehabilitation or long-term facility placement withactive referrals in process Team Pager( Coverage 27/01): #[phone] PCP: NAKIA Cifuentes [phone] Isabel Donis MD 10/23/2017 * Debbie Keller [...] Patient pt seen for nutrition follow up. Kidney Trimmer able to speak with nursing on pt's [...] daily. Will continue to send. Please call [phone] should request be made to modify snack. [...] asked that I send a referral to [facility]. I let her know that he had [place] Medicaid and she is familiar with people who work there and [place] Medicaid. Will ask human resources admin to refer to [facility]. * Tez Tate MSW - [...] minimumof two midnights or is on the [facility] inpatient only procedure list (status C) due to: the patient has met Inpatient IPI criteria and is awaiting rehabilitation or long-term facility placement withactive referrals in process Team Pager( Coverage 27/01): #[phone] PCP: NAKIA Cifuentes [phone] Isabel Donis MD 10/22/2017 * Marta Alfred RN - 10/22/2017 11:53 AM EDT Chart reviewed, care reviewed with primary team. Mr Mason continues ready for discharge to SNF/Swing level of care. Over 30 referrals have been placed (statewide referrals) and all declined. Barriers include behaviors and patient with [place] Medicaid only for insurance. Mr Mason was admitted on 09/02 with fractured acetabulum requiring ORIF (09/04). He will be non weight bearing for 4 more weeks. Prior to admission he was living in a long term. He was independent with ambulation and lived on the second floor without elevator access. To return there he must be able to manage stairs. He has a guardian who requests update calls on Friday, Friday and Friday. REPRESENTATIVE PERSONAL SERVICE following as well and states a call was made yesterday. Call placed to [facility] [employer] [facility] (?sp) [phone] updated the contact information on his face sheet with his information. I left a message to update him on status and seek additional support/suggestions. I also reached the resident program specialist Noel Estrella who asked that all calls go to his porter sample case. * Isabel Donis MD - 10/21/2017 3:39 [...] minimumof two midnights or is on the [facility] inpatient only procedure list (status C) due to: the patient has met Inpatient IPI criteria and is awaiting rehabilitation or long-term facility placement withactive referrals in process Team Pager(MD Coverage 27/01): #[phone] PCP: NAKIA Cifuentes [phone] Isabel Donis MD 10/21/2017 * Skyla Aranda [...] Intake/Output Summary (Last 24 hours) at 10/21/17 2527 Last data filed at 10/21/17 0624 Gross [...] be re-tasked at discharge - please page #[phone] prior to discharge so follow up can be arranged. Skyla Aranda MD, PGY-1 Orthopaedic Surgery Pager #: [phone] Associated attestation - Amy Lance MD - [...] IPI criteria and is awaiting rehabilitation or long-term facility placement withactive referrals in process Team Pager( Coverage 27/01): #[phone] PCP: NAKIA Cifuentes [phone] Isabel Donis MD 10/20/2017 * Judie Thrasher [...] been found, appreciate CM assistance. NPO from [place] for CT tomorrow with anesthesia. Plan: # [...] minimumof two midnights or is on the [facility] inpatient only procedure list (status C) due to: the patient has met Inpatient IPI criteria and is awaiting rehabilitation or long-term facility placement withactive referrals in process Team Pager( Coverage 27/01): #[phone] PCP: NAKIA Cifuentes [phone] Isabel Donis MD 10/19/2017 * Isabel Donis [...] IPI criteria and is awaiting rehabilitation or long-term facility placement withactive referrals in process Team Pager( Coverage 27/01): #[phone] PCP: NAKIA Cifuentes [phone] Isabel Donis MD 10/18/2017 * Tez Tate MSW - 10/17/2017 5:31 PM EDT Based on discussions with the multi-disciplinary healthcare team, the patient would benefit from skilled level of care at discharge. ?? I have met with the patient/group sales representative to discuss discharge planning needs. I have provided the [facility], Office of Care Management letter from the [employer] pertaining to rehab referrals. I have also provided a letter describing our affiliations within the [facility] and educated them about their right to choose where referrals are placed. ?? I reviewed the different levels of rehab including SNF, swing, acute and LTAC with the patient/group sales representative. ?? The patient/group sales representative has been provided a list of facilities within their preferred geographic area. ?? I have requested that the patient/group sales representative provide at least three choices for referral. ?? The patient/group sales representative have requested referrals to: ?? 1. [facility] ?? Expected date of discharge: 10/17/2017 Note routed to Auto Self Service Station Attendant who will communicate referrals to facilities and [...] Date Resolved No resolved problems to display. [facility] Active Non-Hospital Problems Diagnosis ??? Insomnia ??? [...] of Care: Full Team Pager(MD Coverage 27/01): #[phone] PCP: NAKIA Cifuentes [phone] JEVON ROSALES MD 10/17/2017 * Ren Walters OTA - 10/17/2017 10:58 AM EDT Attempted to see pt this morning, pt presents with increased agitation at this time. Will attempt again at a more appropriate time. Ren MAYA Pager: [phone] * Debbie Keller DT - 10/16/2017 4:08 [...] noted. Assessment: Patient seen for follow up. Kidney Trimmer able to speak with nursing on pt's [...] Dr Koch, orthopedic MD Skyla Aranda, a group sales representative from PT, Nursing and [address] [place] [address] leadership were also present as well as this CM. Miguel Angel sister Bettina and Lc Martinez [phone]: Director [facility] were able to attend in person and Subha Tejeda [phone] is the RN of [facility] who oversees the long term was available to participate via conference call. CM did reach out to Noel Estrella [phone]:??[facility] Dept of Aging and [employer], Developmental Services Specialist however Noel was unavailable [...] coverage for sitters for miguel angel. 3 [employer] leadership discussed the challenges of staffing [place] needs, if the care givers are unable to provide staff. It was discussed the caregivers may be more useful during the day to encourage [place] ( fluid intake). We discussed pt's PCP is also new to Miguel Angel and not able to provide much insight. At this time, placement continues to be challenging. State wide referral in place to all skilled facilities in [place].- no bed offers Referrals are also in place to [facility] affiliates no bed offers. CM [...] IPI criteria and is awaiting rehabilitation or long-term facility placement withactive referrals in process Team Pager( Coverage 27/01): #[phone] PCP: NAKIA Cifuentes [phone] DILLON KOCH MD 10/16/2017 * Dillon Koch [...] minimumof two midnights or is on the [facility] inpatient only procedure list (status C) due to: the patient has met Inpatient IPI criteria and is awaiting rehabilitation or long-term facility placement withactive referrals in process Team Pager( Coverage 27/01): #[phone] PCP: NAKIA Cifuentes [phone] DILLON KOCH MD 10/15/2017 * Dillon Koch [...] IPI criteria and is awaiting rehabilitation or long-term facility placement withactive referrals in process Team Pager(MD Coverage 27/01): #[phone] PCP: NAKIA Cifuentes [phone] DILLON KOCH MD 10/14/2017 * Sykla Aranda MD - 10/14/2017 5:52 AM EDT [...] for rehab, however, returning to previously attended long term not an option rightnow (no room on [...] be re-tasked at discharge - please page #[phone] prior to discharge so follow up can be arranged. Skyla Aranda MD, PGY-1 Orthopaedic Surgery Pager #: [phone] Associated attestation - Amy Lance MD - [...] minimumof two midnights or is on the [facility] inpatient only procedure list (status C) due to: the patient has met Inpatient IPI criteria and is awaiting rehabilitation or long-term facility placement withactive referrals in process Team Pager( Coverage 27/01): #[phone] PCP: NAKIA Cifuentes [phone] DILLON KOCH MD 10/13/2017 * Crista Diaz [...] urinary occurrences noted in 24 hours. Per caregivers homecare, he did incredibly well with very limited [...] working with [place] Team Pager(MD Coverage 27/01): #[phone] PCP: NAKIA Cifuentes [phone] DILLON KOCH MD 10/12/2017 * Christopher Hess MD - 10/11/2017 12:41 PM EDT Images from the original note were not included. ENDOCRINOLOGY FOLLOW UP INPATIENT NOTE [facility] Name: Miguel Angel Mason Date of [...] History: Procedure Laterality Date ??? PRO OPEN BOTTOM BLEACHER FIX ACETABULAR FX Left 09/04/2017 @OPEN TREATMENT, ACETABULAR FX (WRVU 25.41) performed by Amy Lance MD at [facility] MA[facility] OR Allergies Allergen Reactions ??? [...] working with [place] Team Pager( Coverage 27/01): #[phone] PCP: NAKIA Cifuentes [phone] DILLON KOCH MD 10/11/2017 * Chavez Kelsey RN - 10/10/2017 2:08 PM EDT OFFICE OF CARE MANAGEMENT Per review with REPRESENTATIVE PERSONAL SERVICE she has spoken with state CM who suggests that [facility] open referrals for plmt statewide . Will ask RS to open referral to all SNF's in [place] per their recommendation. Per review with REPRESENTATIVE PERSONAL SERVICE- Miguel Angel dougan is aware of this [...] today. I also called Noel [place]rella at [place], and left a message. I also called and spoke with Subha at [facility]. She will talk with her toy parts former supervisor Peter this pm, and let me know if they can attend. If they cannot attend in person, one or both of them should be able to participate by speaker phone. Subha asked if we had sent referrals to every SNF in [place]. We had not, but Radha will initiate those referrals today. Plan: Will contact medical team and nursing leadership to inform them about the meeting. * Christopher Hess MD - 10/10/2017 8:48 AM EDT ENDOCRINOLOGY FOLLOW UP INPATIENT NOTE [facility] Name: Miguel Angel Mason Date of [...] History: Procedure Laterality Date ??? PRO OPEN BOTTOM BLEACHER FIX ACETABULAR FX Left 09/04/2017 @OPEN TREATMENT, ACETABULAR FX (WRVU 25.41) performed by Amy Lance MD at [facility] OR Allergies Allergen Reactions ??? [...] to get patient ready for discharge to correction care facility. DDAVP dosing was held once [...] working with [place] Team Pager(MD Coverage 27/01): #[phone] PCP: NAKIA Cifuentes [phone] DILLON KOCH MD 10/10/2017 * Dayne Rm, [...] OFFICE OF CARE MANAGEMENT Per review with [facility] is currently reviewing patient. Awaiting rehab bed. [...] in the interim. ADAM Kathleen Pager # [phone] * Jevon Rosales MD - 10/09/2017 11:13 [...] of Care: Full Team Pager( Coverage 27/01): #[phone] PCP: NAKIA Cifuentes [phone] JEVON ROSALES MD 10/09/2017 * Skyla Ayala OT - 10/08/2017 3:56 PM EDT Occupational Therapy Note Spoke with ZULMA, and adjusted goals for bathing and therapeutic activity in doc flow. Skyla Ayala OTR Pager [phone] * Jevon Rosales MD - 10/08/2017 11:54 [...] of Care: Full Team Pager( Coverage 27/01): #[phone] PCP: NAKIA Cifuentes [phone] JEVON ROSALES MD 10/08/2017 * Chavez Kelsey RN - 10/07/2017 1:36 PM EDT OFFICE OF CARE MANAGEMENT Received a call from Subha community nurse for miguel angel and she explains she has been reaching out to a variety of facilities. She has communicated with facility called [facility]. She explains she has spoken with admission coordinator Mavis. Subha explains in her discussion with admission coordinator,she explains they are willing to review for skilled stay for this gentleman and have had experiencewith challenging patient's in past. We discussed his long term continue to seek out appropriate first level housing to meet miguel angel'sWB limits at this time. Subha has already discussed this option with Miguel Angel Sister Bettina and [place] are [place] in agreement it is acceptable;e to open option for referral. At this time, will expand referral option to include - [facility]. They request information be faxed : Avelina [...] Date Resolved No resolved problems to display. [facility] Active Non-Hospital Problems Diagnosis ??? Insomnia ??? [...] of Care: Full Team Pager(MD Coverage 27/01): #[phone] PCP: NAKIA Cifuentes [phone] JEVON ROSALES MD 10/07/2017 * Skyla Aranda [...] Medically ready, however, returning to previously attended long term not an option right now (no room [...] Aranda MD, PGY-1 Orthopaedic Surgery Pager #: [phone] Associated attestation - Amy Lance MD - 10/09/2017 6:02 AM EDT Patient seen and examined. Agree with resident note. Dispo planning. Mandy Lnace MD Department of Orthopaedics 10/09/17 * Tez Tate MSW - 10/06/2017 11:10 AM EDT SW reviewed the patient chart and the pt is ready for D/C, however the pt is having issues with placement. The pt is unable to return home due to the home environment not being able to accommodate the pt. The pt lives in a long term and rooms are on the 2nd floor. Due to privacy and state guidelines, the pt can not be placed in any open areas, which means that a hospital bed can not be placed onthe first floor for the pt.PRANEETH also spoke with the pt sister and informed her that multiple referrals over the [place] will need to be sent out for the patient, as the pt is medically ready for D.C. The SW did speak with the solar energy installation manager of the long term who states that he is continuing to locate housing that can accommodate the pt. The SW sent out multiple referrals and awaiting to see if the pt canbe accepted. [facility] is willing to provide additional care for the pt of 27/01 to assist any accepting facility. PRANEETH sent an email to SW Bale Coverer, Interim Director, Educator and CM to reach out for any other ideas or assistance in cordinating a safe D/C for the pt. SW to remain available as needed for D/C planningand coordination. Tez Tate Pager [phone] * Tez Tate MSW - 10/06/2017 11:00 AM EDT Based on discussions with the multi-disciplinary healthcare team, the patient would benefit from skilled level of care at discharge. ?? I have met with the patient/group sales representative to discuss discharge planning needs. I have provided the [facility], Office of Care Management letter from the [employer] pertaining to rehab referrals. I have also provided a letter describing our affiliations within the [facility] and educated them about their right to choose where referrals are placed. ?? I reviewed the different levels of rehab including SNF, swing, acute and LTAC with the patient/group sales representative. ?? The patient/group sales representative has been provided a list of facilities within their preferred geographic area. ?? I have requested that the patient/group sales representative provide at least three choices for referral. ?? The patient/group sales representative have requested referrals to: 1. [facility] 2. [facility] 3. [facility] 4. [facility] 5. [facility] 6. [facility] [employer] 7. [facility] ?? Expected date of discharge: 10/06/17 Note routed to Auto Self Service Station Attendant who will communicate referrals to facilities and [...] Date Resolved No resolved problems to display. [facility] Active Non-Hospital Problems Diagnosis ??? Insomnia ??? 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 Diet Regular diet with 2.5L fluid restriction Discharge planning No rehab acceptances as of yet. His current long term is unable to find first floor room for him. CM working with [facility] for further options. Lines/Access None Morse catheter None DVT Prophylaxis Enoxaparin Code status FULL Team Pager [phone] PCP NAKIA Cifuentes Attestation IPI Certification I certify that I am a D-H credentialed attending provider with admitting privileges and that the patient meets or has met medical necessity to require an inpatient IPI level of care meeting a minimumof two midnights or is on the [facility] inpatient only procedure list (status C) due to: the patient has met Inpatient IPI criteria and is awaiting rehabilitation or long-term facility placement withactive referrals in process REBA LINTON MD * Reba Linton MD - 10/04/2017 3:44 PM EDT [facility] Medicine Daily Progress Note Admit Date: [...] to autonomic instability related to hx of 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 Diet Regular diet with 2.5L fluid restriction Discharge planning No rehab acceptances as of yet. His current long term is unable to find first floor room for him. CM working with [facility] for further options. Lines/Access None Morse catheter None DVT Prophylaxis Enoxaparin Code status FULL Team Pager [phone] PCP NAKIA Cifuentes Attestation IPI Certification I certify that I am a D-H credentialed attending provider with admitting privileges and that the patient meets or has met medical necessity to require an inpatient IPI level of care meeting a minimumof two midnights or is on the [facility] inpatient only procedure list (status C) due to: the patient has met Inpatient IPI criteria and is awaiting rehabilitation or long-term facility placement withactive referrals in process REBA [...] to autonomic instability related to hx of 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 Diet Regular diet with 2.5L fluid restriction Discharge planning No rehab acceptances as of yet. His current long term is unable to find first floor room for him. CM working with [facility] for further options. Lines/Access None Morse catheter None DVT Prophylaxis Enoxaparin Code status FULL Team Pager [phone] PCP NAKIA Cifuentes Attestation IPI Certification I certify that I am a D-H credentialed attending provider with admitting privileges and that the patient meets or has met medical necessity to require an inpatient IPI level of care meeting a minimumof two midnights or is on the [facility] inpatient only procedure list (status C) due to: the patient has met Inpatient IPI criteria and is awaiting rehabilitation or long-term facility placement withactive referrals in process REBA LINTON MD * Tez Tate MSW - 10/03/2017 10:52 AM EDT Based on discussions with the multi-disciplinary healthcare team, the patient would benefit from skilled level of care at discharge. ?? I have met with the patient/group sales representative to discuss discharge planning needs. I have provided the [facility], Office of Care Management letter from the [employer] pertaining to rehab referrals. I have also provided a letter describing our affiliations within the [facility] and educated them about their right to choose where referrals are placed. ?? I reviewed the different levels of rehab including SNF, swing, acute and LTAC with the patient/group sales representative. ?? The patient/group sales representative has been provided a list of facilities within their preferred geographic area. ?? I have requested that the patient/group sales representative provide at least three choices for referral. ?? The patient/group sales representative have requested referrals to: ?? 1. [facility] are willing to send in additional care for assistance, please inform the facility of this. ?? Expected date of discharge: 10/03/2017 Note routed to Auto Self Service Station Attendant who will communicate referrals to facilities and provide any required information. * Tez Tate MSW - 10/03/2017 10:30 AM EDT Sw reviewed the pt chart. The pt is medically ready for D/C but SW is having a hard time with placement. The SW reached out to Noel Estrella [phone]: [facility] Dept of Aging and [employer], Developmental Services Specialist and Lc Martinez [phone]: Director [facility],as well as Subha Tejeda [phone] is the RN of [facility] who oversees the long term. Miguel Angel states that she is the nurse for the home where the pt is and when she spoke with Lc, he says that the pt does need to D/C from the hospital and he was trying to work on a plan. The SW also spoke with Noel from [facility] who states that she is willing to authorize additional services in any facility the pt transfers to, to try and accommodate that staff at the facility. The SW was unable to talk to Lc but did leave a voice mail for a return call. 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 Diet Regular diet Discharge planning No rehab acceptances as of yet. His current long term is unable to find first floor room for him. CM working with [facility] for further options. Lines/Access None Morse catheter None DVT Prophylaxis Enoxaparin Code status FULL Team Pager [phone] PCP NAKIA Cifuentes Attestation IPI Certification I [...] IPI criteria and is awaiting rehabilitation or long-term facility placement withactive referrals in process REBA [...] early, guide him to the chair Pager: [phone] [place] PTA Physical Therapy Rehabilitation Department [...] History: Procedure Laterality Date ??? PRO OPEN BOTTOM BLEACHER FIX ACETABULAR FX Left 09/04/2017 @OPEN TREATMENT, ACETABULAR FX (WRVU 25.41) performed by Amy Lance MD at [facility] MA[facility] OR No family history on [...] MD Endocrinology, Diabetes and Metabolism Fellow Pager #[phone] 10/01/2017 Associated attestation - Genevieve Page MD - 10/01/2017 6:59 PM EDT I discussed this patient with Dr. Niles Tillman. I reviewed the santos portions of the history and physical exam, and reviewed pertinent lab data. I was involved in all medical decision making and agree with this plan. GENEVIEVE PAGE MD Vice President Of [employer] plater Section of Endocrinology [facility] * Kurt Blanco - 10/01/2017 [...] in the interim. 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 Diet Regular diet Discharge planning No rehab acceptances as of yet. His current long term is unable to find first floor room for him. CM working with [facility] for further options. Lines/Access None Morse catheter None DVT Prophylaxis Enoxaparin Code status FULL Team Pager [phone] PCP NAKIA Cifuentes Attestation IPI Certification I certify that I am a D-H credentialed attending provider with admitting privileges and that the patient meets or has met medical necessity to require an inpatient IPI level of care meeting a minimumof two midnights or is on the [facility] inpatient only procedure list (status C) due to: the patient has met Inpatient IPI criteria and is awaiting rehabilitation or long-term facility placement withactive referrals in process REBA [...] agree with this plan. GENEVIEVE PAGE MD Vice President Of [employer] plater Section of Endocrinology [facility] * Reba Linton MD - [...] to autonomic instability related to hx of 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 Diet Regular diet Discharge planning No rehab acceptances as of yet. His current long term is unable to find first floor room for him. CM working with [facility] for further options. Lines/Access None Morse catheter None DVT Prophylaxis Enoxaparin Code status FULL Team Pager [phone] PCP NAKIA Cifuentes Attestation IPI Certification I certify that I am a D-H credentialed attending provider with admitting privileges and that the patient meets or has met medical necessity to require an inpatient IPI level of care meeting a minimumof two midnights or is on the [facility] inpatient only procedure list (status C) due to: the patient has met Inpatient IPI criteria and is awaiting rehabilitation or long-term facility placement withactive referrals in process REBA [...] been difficultto document urine output. Spoke with nurse care manager at the bedside and at home the patient is on a 110 oz fluid restriction (3,000 mL). While in the hospital he is fluid restricted to 3,000 mL. No IV fluids given. No past medical history on file. Past Surgical History: Procedure Laterality Date ??? PRO OPEN BOTTOM BLEACHER FIX ACETABULAR FX Left 09/04/2017 @OPEN TREATMENT, ACETABULAR FX (WRVU 25.41) performed by Amy Lance MD at [facility] MA[facility] OR No family history on [...] MD Endocrinology, Diabetes and Metabolism Fellow Pager #[phone] 09/30/2017 ' Associated attestation - Genevieve Page MD - 09/30/2017 4:49 PM EDT I discussed this patient with Dr. Niles Tillman. I reviewed the asntos portions of the history and physical exam, and reviewed pertinent lab data. I was involved in all medical decision making and agree with this plan. GENEVIEVE PAGE MD Vice President Of [employer] plater Section of Endocrinology [facility] * Desean De Oliveira W [...] to autonomic instability related to hx of 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 Diet Regular diet Discharge planning No rehab acceptances as of yet. His current long term is unable to find first floor room for him. CM working with [facility] for further options. Lines/Access None Morse catheter None DVT Prophylaxis Enoxaparin Code status FULL Team Pager [phone] PCP NAKIA Cifuentes Attestation IPI Certification I certify that I am a D-H credentialed attending provider with admitting privileges and that the patient meets or has met medical necessity to require an inpatient IPI level of care meeting a minimumof two midnights or is on the [facility] inpatient only procedure list (status C) due to: the patient has met Inpatient IPI criteria and is awaiting rehabilitation or long-term facility placement withactive referrals in process REBA LINTNO MD * Guerrero Bah MD - 09/29/2017 11:38 AM EDT Images from the original note were not included. Endocrinology Follow up note Name: Miguel Angel Mason Date: 09/29/17 Room: [address] [place] [address] HPI: Miguel Angel Mason is a 27 [...] bedside, he was laying comfortably, alert. Patient's nurse care manager was at the bedside and according to her, he is at baseline neurologically. No past medical history on file. Past Surgical History: Procedure Laterality Date ??? PRO OPEN BOTTOM BLEACHER FIX ACETABULAR FX Left 09/04/2017 @OPEN TREATMENT, ACETABULAR FX (WRVU 25.41) performed by Amy Lance MD at [facility] No family history on [...] MD Endocrinology, Diabetes and Metabolism Fellow Pager #[phone] 09/29/2017 Associated attestation - Genevieve Page MD - 09/29/2017 5:38 PM EDT I discussed this patient with Dr. Niles Tillman. I reviewed the santos portions of the history and physical exam, and reviewed pertinent lab data. I was involved in all medical decision making and agree with this plan. GENEVIEVE PAGE MD Vice President Of [employer] plater Section of Endocrinology [facility] * Tez Tate MSW - [...] Note Patient Name: Miguel Angel Mason : [id number] MR#: [id number] Admit Date: 09/02/2017 9:23 PM Hospital Day [...] to autonomic instability related to hx of 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 Diet Regular diet Discharge planning No rehab acceptances as of yet. His current long term is unable to find first floor room for him. CM working with [facility] for further options. Lines/Access None Morse catheter None DVT Prophylaxis Enoxaparin Code status FULL Team Pager [phone] PCP NAKIA Cifuentes Attestation IPI Certification I certify that I am a D-H credentialed attending provider with admitting privileges and that the patient meets or has met medical necessity to require an inpatient IPI level of care meeting a minimumof two midnights or is on the [facility] inpatient only procedure list (status C) due to: the patient has met Inpatient IPI criteria and is awaiting rehabilitation or long-term facility placement withactive referrals in process REBA [...] them as documented. Neo Coleman DO, MS Vice President Of [employer] plater Section of Endocrinology [facility] * Reba Linton MD - 09/27/2017 [...] to autonomic instability related to hx of 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 Diet Regular diet Discharge planning Medically stable for discharge. No rehab acceptances as of yet. His current long term is unable to find first floor room for him. CM working with [facility] for further options. Lines/Access None Morse catheter None DVT Prophylaxis Enoxaparin Code status FULL Team Pager [phone] PCP NAKIA Cifuentes Attestation IPI Certification I certify that I am a D-H credentialed attending provider with admitting privileges and that the patient meets or has met medical necessity to require an inpatient IPI level of care meeting a minimumof two midnights or is on the [facility] inpatient only procedure list (status C) due to: the patient has met Inpatient IPI criteria and is awaiting rehabilitation or long-term facility placement withactive referrals in process REBA [...] to autonomic instability related to hx of 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 IV access: none Tubes/Drains: none DVT PPX: Lovenox 40mg QHS Anticipated Disposition: Medically stable for discharge. No rehab acceptances as of yet. His current long term is unable to find first floor room for him. working with [facility] for further options. Goals of Care: Full code Team Pager(MD Coverage 27/01): #[phone] PCP: NAKIA Cifuentes [phone] Kya Enriquez MD 09/26/2017 * Gabe Marinelli [...] to autonomic instability related to hx of 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 IV access: none Tubes/Drains: none DVT PPX: Lovenox 40mg QHS Anticipated Disposition: Medically stable for discharge. No rehab acceptances as of yet. His current long term is unable to find first floor room for him. CM working with [facility] for further options. Goals of Care: Full code Team Pager(MD Coverage 27/01): #[phone] PCP: NAKIA Cifuentes [phone] Kya Enriquez MD 09/25/2017 * Debbie Keller [...] noted. Assessment: Patient seen for follow up. Kidney Trimmer able to speak with nursing on pt's [...] 09/24/2017 11:13 AM EDT Office of Care Management(OCM)/Machine Stapler(CM)/Discharge Planning Service: Medicine Pager # [phone] LUCAS BoyceRN,BSN,MA,[facility] pgr [phone] ?? Called Guardian /sister Bettina to update w d/c planning and pt status. Updated that: Is in room w cande lift so will be making transfers to chair, w/c etc. Staff working to find safe plan to help him w stand pivot that is safe for pt(requires 2 staff) andfor the staff as he gets combative - grabs hard, pinches etc. [facility] Director and [facility] looking for first floor room. ? Agreed RNCM will call Mon/Fri/Fri w olimpia. Provided pagr [phone] as contact pgr for now and she [...] dtermined by XRAY ?? 09/23: Met w [facility] director Lc Ny while he was visiting with pt. Barriers reviewed and remain unchanged. I notified him I had also had contact w Noel Estrella [place] [facility] [...] to autonomic instability related to hx of 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 IV access: none Tubes/Drains: none DVT PPX: Lovenox 40mg QHS Anticipated Disposition: Medically stable for discharge. No rehab acceptances as of yet. His current long term is unable to find first floor room for him. working with [facility] for further options. Goals of Care: Full code Team Pager(MD Coverage 27/01): #[phone] PCP: NAKIA Cifuentes [phone] Kya Enriquez MD 09/24/2017 * Gabe Marinelli [...] to autonomic instability related to hx of 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 IV access: none Tubes/Drains: none DVT PPX: Lovenox 40mg QHS Anticipated Disposition: Medically stable for discharge. No rehab acceptances as of yet. His current long term is unable to find first floor room for him. CM working with [facility] for further options. Goals of Care: Full code Team Pager( Coverage 27/01): #[phone] PCP: NAKIA Cifuentes [phone] Kya Enriquez MD 09/23/2017 Spoke with ortho [...] when asked if he feels well - Ellenwood removed by orthopedics today Review of Systems: [...] to autonomic instability related to hx of 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 IV access: none Tubes/Drains: none DVT PPX: Lovenox 40mg QHS Anticipated Disposition: Medically stable for discharge. No rehab acceptances as of yet. His current long term is unable to find first floor room for him. LUCAS working with [facility] for further options. Goals of Care: Full code Team Pager(MD Coverage 27/01): #[phone] PCP: NAKIA Cifuentes [phone] Kya Enriquez MD 09/22/2017 * Kya Enriquez [...] to autonomic instability related to hx of 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 IV access: none Tubes/Drains: none DVT PPX: Lovenox 40mg QHS Anticipated Disposition: Medically stable for discharge. No rehab acceptances as of yet. His current long term is unable to find first floor room for him. CM working with [facility] for further options. 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 IV access: none Tubes/Drains: none DVT PPX: Lovenox 40mg QHS Anticipated Disposition: Medically stable for discharge. No rehab acceptances as of yet. His current long term is unable to find first floor room for him. LUCAS working with [facility] for further options. Goals of Care: Full code Team Pager( Coverage 27/01): #[phone] PCP: NAKIA Cifuentes [phone] Kya Enriquez MD 09/20/2017 * Minerva Boyce, RN - 09/19/2017 4:53 PM EDT Office of Care Management(OCM)/Machine Stapler(CM)/Discharge Planning Service: Medicine Pager # [phone] CM Minerva Boyce,RN,BSN,MA,[facility] pgr [phone] Housing Contacts for pt: ?? Noel Estrella [phone]: [facility] Dept of Aging and [place], Developmental Services Specialist ( Name provided by Office of the Public Guardian Alicia Joyce: [phone]) too late to reach Noel today. May be able to access Medicaid waiver funds, matched funding to assist. Also does the PASR for [facility]. Does is NOT under Choices for Care/Senior Care Care Medicaid program - he is under Developmental Services instead. ?? Lc Martinez-: Director [facility] Human Services([facility]): single agency contracted by [facility] to provide services/housing for Miguel Angel ?? Subha Tejeda [phone] is the RN of [facility] who oversees the long term Miguel Angel is in. She is notthere 27/01 but is similar to home health RN. Spoke w Lc and Subha together this afternoon: ?? They have not had success in past in getting SNF rehab for pts with his level of disabiities ?? They are currently providing caregivers from pt's long term in order to provide patient with sense of comfort and stability from those he knows, to interpret his needs to the staff. It is appropriate for them to touch/talk w pt to assist in calming and if [facility] ok with them wheeling him about in w/c it is ok with them. ?? Subha had great success in getting clinical and ability info from staff initially but of late theresponses have been that the person doesn't know. ?? [facility] has 5 homes all are full and pt's room is on 2nd floor 18 step walk up and there are stairs to enter the home. ?? The home that Miguel Angel is in is one [facility] rents so they can't make [...] plan status And to contact Noel of [facility]. 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 IV access: none Tubes/Drains: none DVT PPX: Lovenox 40mg QHS Anticipated Disposition: Medically stable for discharge. No rehab acceptances as of yet. His current long term is unable to find first floor room for him. CM working with [facility] for further options. Goals of Care: Full code Team Pager( Coverage 27/01): #[phone] PCP: NAKIA Cifuentes [phone] Delgado Jeffrey MD 09/19/2017 Staff Addendum: ?? [...] 09/18/2017 5:30 PM EDT Office of Care Management(OCM)/Machine Stapler(CM)/Discharge Planning Service: CM Minerva Boyce,RN,BSN,MA,ACM pgr [phone] 09/17: Called Guardian and spoke with her about d/c planning and that facilities had declined her brother. She agrees he is getting bored, frustrated in hospital environment and would be bestserved to be in his own long term getting home PT/OT. Clinical update given and she asks that teamcall her with clinical decisions and updates and can reach her at her work phone if is after 2P. Today- left message with Subha Razo who is the RN overseeing long term. RNCM Solitario Kelsey has spoken with her [...] ECGs available Confirmed by MD Scottie, Sally ([id number]) on 09/05/2017 3:49:31 PM QTCCALC 429 IMAGING: [...] to autonomic instability related to hx of 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 IV access: none Tubes/Drains: none DVT PPX: Lovenox 40mg QHS Anticipated Disposition: Medically stable for discharge, pending placement Goals of Care: Full code Team Pager(MD Coverage 27/01): #[phone] PCP: NAKIA Cifuentes [phone] Delgado Jeffrey MD 09/18/2017 Staff Addendum: I [...] minimumof two midnights or is on the [facility] inpatient only procedure list (status C) due [...] ECGs available Confirmed by MD Scottie, Sally ([id number]) on 09/05/2017 3:49:31 PM QTCCALC 429 IMAGING: [...] to autonomic instability related to hx of 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 IV access: none Tubes/Drains: none DVT PPX: Lovenox 40mg QHS Anticipated Disposition: Medically stable for discharge, pending placement Goals of Care: Full code Team Pager( Coverage 27/01): #[phone] PCP: NAKIA Cifuentes [phone] RBEA LINTON MD 09/17/2017 * Debbie Keller DT [...] Assessment: Patient seen for nutrition follow up. Kidney Trimmer able to speak with visitor on pt's [...] right leg only DVT prophylaxis: lovenox Closure: Ellenwood to be removed ~09/19 Dressings: may leave open to air now Future Appointments Date Time Provider Department Center 09/19/2017 2:15 PM [facility] DX ROOM 1 Xray Leb Rad [...] re-attempt tomorrow when appropriate. Please page this insurance writer if you have any questions, thank you. Agnieszka Mendiola, PT Pager #[phone] Physical Therapy Inpatient Rehabilitation * Ren Walters OTA - 09/16/2017 1:04 PM EDT Attempted to see pt this morning, pt working with other staff and notably agitated. Will attempt again at a more appropriate time. Ren MAYA Pager:[phone] * Reba Linton MD - 09/16/2017 8:34 [...] ECGs available Confirmed by MD Scottie, Sally ([id number]) on 09/05/2017 3:49:31 PM QTCCALC 429 IMAGING: [...] to autonomic instability related to hx of 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 IV access: none Tubes/Drains: none DVT PPX: Lovenox 40mg QHS Anticipated Disposition: pending workup of fever Goals of Care: Full code Team Pager(MD Coverage 27/01): #[phone] PCP: NAKIA Cifuentes [phone] Delgado Jeffrey MD PGY-1, Internal Medicine 09/16/2017 [...] incisions intact. Awaiting potential rehab or specialty fpc per care management notes. Hb is 6.8 [...] Time Provider Department Center 09/19/2017 2:15 PM [facility] DX RO[facility] 1 Xray [facility] Rad Clin 09/19/2017 3:10 PM Amy Lance MD [facility] Associated attestation - Amy Lance MD - 09/16/2017 6:12 AM EDT Agree with resident note. Mandy Lance MD Department of Orthopaedics 09/16/17 * Chavez Kelsey RN - 09/15/2017 10:03 AM EDT OFFICE OF CARE MANAGEMENT CM call to Subha Garcia RN at long term. We discussed declines by facilities- awaiting [facility] response. We discussed if there are any other home that may be able to accommodate Miguel Angel physical needs at this time. We discussed supportive services such as VNA. Subha will discuss with [employer] former supervisor in considering if miguel angel could [...] ECGs available Confirmed by MD Scottie, Sally ([id number]) on 09/05/2017 3:49:31 PM QTCCALC 429 VASCULAR: [...] to autonomic instability related to hx of 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 IV access: none Tubes/Drains: none DVT PPX: Lovenox 40mg QHS Anticipated Disposition: pending workup of fever Goals of Care: Full code Team Pager( Coverage 27/01): #[phone] PCP: NAKIA Cifuentes [phone] Delgado Jeffrey MD PGY-1, Internal Medicine 09/15/2017 [...] not included. ENDOCRINOLOGY FOLLOW UP INPATIENT NOTE [facility] Name: Miguel Angel Mason Date of [...] History: Procedure Laterality Date ??? PRO OPEN BOTTOM BLEACHER FIX ACETABULAR FX Left 09/04/2017 @OPEN TREATMENT, ACETABULAR FX (WRVU 25.41) performed by Amy Lance MD at [facility] Allergies Allergen Reactions ??? [...] to autonomic instability related to hx of CUSTOMER RESOLUTION SPECIALIST insults described above Diet Regular diet Discharge planning Anticipate patient will be medically stable for discharge to rehab within next 24-48 hours Lines/Access None Morse catheter None DVT Prophylaxis Enoxaparin Code status FULL Team Pager [phone] PCP NAKIA Cifuentes Attestation IPI Certification I certify that I am a D-H credentialed attending provider with admitting privileges and that the patient meets or has met medical necessity to require an inpatient IPI level of care meeting a minimumof two midnights or is on the [facility] inpatient only procedure list (status C) due [...] touching or repositioning that leg. (medicine pager [phone]) notified and additional 2 mg of po [...] Sodium has now stabilized. Will plan to [id number] serum and urine osms and continue Q6H [...] to autonomic instability related to hx of CUSTOMER RESOLUTION SPECIALIST insults described above Diet Regular diet Discharge planning Anticipate patient will be medically stable for discharge to rehab within next 24-48 hours Lines/Access None Morse catheter None DVT Prophylaxis Enoxaparin Code status FULL Team Pager [phone] PCP NAKIA Cifuentes Attestation IPI Certification I certify that I am a D-H credentialed attending provider with admitting privileges and that the patient meets or has met medical necessity to require an inpatient IPI level of care meeting a minimumof two midnights or is on the [facility] inpatient only procedure list (status C) due [...] to autonomic instability related to hx of CUSTOMER RESOLUTION SPECIALIST insults described above. ? IV access: piv Tubes/Drains: Morse DVT PPX: lovenox Anticipated Disposition: Awaiting rehab once Na stable ?? Goals of Care: Full Code Team Pager( Coverage 27/01): #[phone] PCP: NAKIA Cifuentes [phone] REN SANCHEZ III, MD * Comi, Christopher Jerez MD - 09/12/2017 8:17 AM EST Images from the original note were not included. ENDOCRINOLOGY FOLLOW UP INPATIENT NOTE [facility] Name: Miguel Angel Mason Date of [...] History: Procedure Laterality Date ??? PRO OPEN BOTTOM BLEACHER FIX ACETABULAR FX Left 09/04/2017 @OPEN TREATMENT, ACETABULAR FX (WRVU 25.41) performed by Amy Lance MD at [facility] Allergies Allergen Reactions ??? [...] Nightly ??? acetaminophen 1,000 mg Oral Q6H ICRO Continuous Infusions: PRN Meds:.HYDROmorphone, LORazepam, meTOPROLOL, polyethylene [...] seated in chair Responding to some questions, nurse care manager at bedside helps interaction CVS/Lungs- regular/clear No [...] Time Provider Department Center 09/19/2017 2:15 PM [facility] DX ROOM 1 Xray Leb Rad [...] morse catheter, per MD orders. * Masood iHgh RN - 09/11/2017 8:06 PM EST In [...] CARE MANAGEMENT Met with pt and his nurse care manager this am., Per review with medical team, pt NOT medically ready today due to electrolyte imbalance. Will ask RS to update facilities in referral, potentially medically cleared within 24 hrs * Christopher Hess MD - 09/11/2017 8:35 AM EST Images from the original note were not included. ENDOCRINOLOGY FOLLOW UP INPATIENT NOTE [facility] Name: Miguel Angel Mason Date of [...] History: Procedure Laterality Date ??? PRO OPEN BOTTOM BLEACHER FIX ACETABULAR FX Left 09/04/2017 @OPEN TREATMENT, ACETABULAR FX (WRVU 25.41) performed by Amy Lance MD at [facility] Allergies Allergen Reactions ??? 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 ? IV access: piv Tubes/Drains: Morse DVT PPX: lovenox Anticipated Disposition: Awaiting reahb ?? Goals of Care: Full Code Team Pager(MD Coverage 27/01): #[phone] PCP: NAKIA Cifuentes [phone] Delgado Jeffrey MD Attending Attestation Please see [...] of two midnights or is on the [facility] inpatient only procedure list (status C) due [...] at time of arrival and pt asleep. Kidney Trimmer able to speak with visitor on pt's [...] informed of supplemental shakes available if needed. Kidney Trimmer showed Adriane where unit kitchen is for [...] to autonomic instability related to hx of CUSTOMER RESOLUTION SPECIALIST insults described above. ? IV access: piv Tubes/Drains: Morse DVT PPX: lovenox Anticipated Disposition: Awaiting reahb ?? Goals of Care: Full Code Team Pager( Coverage 27/01): #[phone] PCP: cL Venegas, NAKIA [phone] REN SANCHEZ III, MD * Shelley Tong RN - 09/10/2017 11:02 AM EST Office of Care Management Based on discussions with the multi-disciplinary healthcare team, his sibling, Btetina, would benefit from skilled level of care at discharge. ?? I have met with the patient/group sales representative to discuss discharge planning needs. I have provided the [facility], Office of Care Management letter from the [employer] pertaining to rehab referrals. I have also provided a letter describing our affiliations within the [facility] and educated them about their right to choose where referrals are placed. ?? I reviewed the different levels of rehab including SNF, swing, acute and LTAC with the patient/group sales representative. ?? The patient/group sales representative has been provided a list of facilities within their preferred geographic area. ?? I have requested that the patient/group sales representative provide at least three choices for referral. ?? The patient/group sales representative have requested referrals to: ?? 1. [facility] ?? 2. [facility] in [place], [place] 3. [facility] 4. [facility] ? Expected date of discharge: 09/10/2017 Note routed to [employer] Station Attendant who will communicate referrals to facilities and provide any required information. Shelley Tong RN Case Manager Pager #[phone] * Comi, Christopher Jerez MD - 09/10/2017 7:10 AM EST Images from the original note were not included. ENDOCRINOLOGY CONSULT INPATIENT NOTE [facility] Name: Miguel Angel Mason HPI: Miguel [...] No events overnight per nursing staff and long term staff at bedside. Patient responding and says he is awesome. Very pleasant. Drinking to thirst. Hungry and thirsty all the time per care givers from long term, this is not new. 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 ?? Plan: Panhypopituitarism: --- Continue DDAVP [...] this TID regimenas requested by his primary legal summer intern and sister, he be placed on [...] also be on Vitamin D replacement using 3805-4306 IU daily. Thank you for allowing us [...] III, MD - 09/09/2017 7:43 AM EST [facility] Medicine Attending Daily Progress Note Admit [...] to autonomic instability related to hx of CUSTOMER RESOLUTION SPECIALIST insults described above. ? IV access: piv Tubes/Drains: Morse DVT PPX: lovenox Anticipated Disposition: TBD pending clinical course ?? Goals of Care: Full Code Team Pager( Coverage 27/01): #[phone] PCP: NAKIA Cifuentes [phone] Delgado Jeffrey MD PGY-1, Internal Medicine 09/09/2017 [...] MD * Comi, Christopher Jerez MD - 09/09/2017 7:34 AM EST Images from the original note were not included. ENDOCRINOLOGY FOLLOW UP INPATIENT NOTE [facility] Name: Miguel Angel Mason Date of [...] No events overnight per nursing staff and long term staff at bedside. Patients sodium remains in appropriate range. Urine output higher than previous days. Thirst levels is normal according to long term staff member that knows the patient well. 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 Given that his long term has used a fluid restriction in his [...] Current Decision-Making Capacity: sister Bettina Mason (Sibling) [phone] [facility] [id number] (H)- Advance Care Planning: not on file Current Coping/Education/Information Needs: Coping well per care givers Current Functional Ability: has not had PT yet per care givers Functional Status Prior to Admission: lives in long term setting on 2nd level able to ascend stairs, showers self with stand by assist r/t blindness per care givers, non communicative however the care givers seem able to understand at least some of pt's attempts of communication. [place] [facility] [place] Social & Family Supports/Community Resources: Extended Emergency Contact Information Primary Emergency Contact: Bettina Mason Address: [facility] [address] Relation: Sibling Behavioral Health History: NA Substance Use/Abuse: NA Other Pertinent/Service Specific Information: unlikely be able to return to long term immediately Health/Prescription Coverage: Primary Insurance: Pay[place] / Plan[place] / Product Type: *No Product type* / Secondary Insurance: Prescription Coverage: see above Preferred Pharmacy: No Pharmacies Listed Other: None Primary Care Provider: NAKIA Cifuentes [phone] Patient/Caregiver Goals of Treatment: Safe discharge Potential Needs for Transition of Care: Rehab/SNF: TBD Home Health: no DME: no Dialysis: No Community Resources: No Transportation: ambulance Other: None Anticipated Barriers to Discharge/Special Considerations: None Plan: Per discussion with care givers pt may be near facilities such as [facility], [facility] and the [facility] in [place]. CM will need to connect with sister for choices A member of the Care Management team will continue to monitor progress, follow for continuity of care and assist with transition of care planning. CHAVEZ KELSEY RN Pager: [phone] * Christopher Hess MD - 09/08/2017 11:49 AM EST Images from the original note were not included. 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 Zaidi at [facility]. During this [...] the possibility of hypophosphatemic osteomalacia. For this [id number] hour urine studies of calcium, creatinine and [...] to autonomic instability related to hx of CUSTOMER RESOLUTION SPECIALIST insults described above. ? IV access: piv Tubes/Drains: Morse DVT PPX: lovenox Anticipated Disposition: TBD pending clinical course ?? Goals of Care: Full Code Team Pager(MD Coverage 27/01): #[phone] PCP: NAKIA Cifuentes [phone] eDlgado Jeffrey MD PGY-1, Internal Medicine 09/08/2017 Attending [...] left ischial and acetabular fracture with multiple keduz-yda-wgeaj constructs. Tubing that could represent a surgical [...] right leg only DVT prophylaxis: lovenox Closure: [place] (to be removed at Orthopaedic follow-up appointment) Dressing: Mepilex x 7 days Antibiotics: Ancef x24 hours edna-op, complete Future Appointments Date Time Provider Department Center 09/19/2017 2:15 PM [facility] DX ROOM 1 Xray Leb Rad [...] by patient; replaced by nurse. OT hand mail deliverer given for distraction. 24 hour urine commence at 0700 although needs to be [id number] r/t mistaken interpretation of a discontinued order from 3 not 3/4. Replaced calcium per orders. HEATHER Mascorro managing patient's care at long term is instructed to call Bettina (guardian and [...] ECGs available Confirmed by MD Scottie, Sally ([id number]) on 09/05/2017 3:49:31 PM QTCCALC 429 VASCULAR: [...] to autonomic instability related to hx of CUSTOMER RESOLUTION SPECIALIST insults described above. ?? IV access: piv Tubes/Drains: morse DVT PPX: lovenox Anticipated Disposition: TBD pending clinical course Goals of Care: Full Code Team Pager( Coverage 27/01): #[phone] PCP: NAKIA Cifuentes [phone] Attestation: IPI Certification I certify that I am a D-H credentialed attending provider with admitting privileges and that the patient meets or has met medical necessity to require an inpatient IPI level of care meeting a minimumof two midnights or is on the [facility] inpatient only procedure list (status C) due to: Acetabular fracture in patient with panhypopituitarism requiring operative repair and post-operative mgmt as above. REN SANCHEZ III, MD 09/07/2017 * Guerrero Bah MD - 09/07/2017 2:15 PM EST Images from the original note were not included. 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 On discussion with his primary legal summer intern and his sister, however, they have [...] and normal PTH level. GENEVIEVE PAGE MD Vice President Of [employer] plater Section of Endocrinology [facility] * Desean De Oliveira W [...] left ischial and acetabular fracture with multiple puwno-zod-pterr constructs. Tubing that could represent a surgical [...] Time Provider Department Center 09/19/2017 2:15 PM [facility] DX ROOM 1 Xray Leb Rad Clin 09/19/2017 3:10 PM Amy Lance MD [facility] Associated attestation - Amy Lance [...] ECGs available Confirmed by MD Scottie, Sally ([id number]) on 09/05/2017 3:49:31 PM QTCCALC 429 VASCULAR: [...] to autonomic instability related to hx of CUSTOMER RESOLUTION SPECIALIST insults described above. ?? 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 Patient was given [id number] mL 0.45% at 12:22 + 1 L sodium chloride 0.45% at 1640. Patient is on DDAVP 0.05 mg BID, hydrocortisone 50 mg every 12 hours, levothyroxine 150 mg daily. Urine output about 25 mL/hr. Patient was seen at the bedside he is feeling well and no complains. Denies any nausea, vomiting orabdominal pain. No fevers, chills or night sweats. He is with nurse care manager and eating at the time. 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 GENEVIEVE PAGE MD Vice President Of [employer] plater Section of Endocrinology [facility] * Desean De Oliveira W - 09/06/2017 [...] left ischial and acetabular fracture with multiple aptky-tsy-aziwg constructs. Tubing that could represent a surgical [...] Time Provider Department Center 09/19/2017 2:15 PM [facility] DX ROOM 1 Xray Leb Rad [...] ECGs available Confirmed by MD Scottie, Sally ([id number]) on 09/05/2017 3:49:31 PM QTCCALC 429 VASCULAR: [...] instability related to the aforementioned hx of CUSTOMER RESOLUTION SPECIALIST insults. ?? Plan # Acetabular fracture -underwent [...] to autonomic instability related to hx of CUSTOMER RESOLUTION SPECIALIST insults described above. ?? 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 She was telling me sister wants to speak with us as she feels he should be on DDAVP three times a day instead of twice a day. 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 I spoke with his primary legal summer intern, Dr. 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 40 intact holes visible in tubing. Drain sponge and overlying gauze for dressing. Patient tolerated drain removal well. Celine Power MD [id number] * De Oliveira, Desean W - 09/05/2017 [...] left ischial and acetabular fracture with multiple kzmdi-mxo-fvvjy constructs. Tubing that could represent a surgical [...] left ischial and acetabular fracture with multiple iyujq-qaz-wwsor constructs. 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 Apparently at his long term, he was being kept on a 2L [...] his testosterone replacement dose. GENEVIEVE PAGE MD Vice President Of [employer] Section of Endocrinology [facility] * Nyasia Cochran RN - [...] today Desean De Oliveira MD 09/04/2017 Pager: [phone] * David Phillips MD - 09/04/2017 6:00 [...] L Elbow flexion 5/5 R, 5/5 L Promotions Associate LE: 5/5 R, UT L Hip flexion [...] ng/dL Lactate, whole blood, send to lab ([facility]) Result Value Ref Range Lactate WB 3.7 (H) 0.5 - 2.2 mmol/L Rapid Influenza A/B PCR Result Value Ref Range Influenza A PCR Not Detected Not Detected Influenza B PCR Not Detected Not Detected Resp PCR 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 Moisés Orr MD PGY-3 Neurology Pager [phone] ?? Neurology Attending ?? I saw and [...] ? David Phillips [place] [address] Pager #[phone] Email: [email or web address] ?? * Fran Gilliam MD - 09/03/2017 [...] Care: Full Code Team Pager(MD Coverage 27/01): #[phone] PCP: NAKIA Cifuentes [phone] Attestation: IPI Certification I certify that I am a D-H credentialed attending provider with admitting privileges and that the patient meets or has met medical necessity to require an inpatient IPI level of care meeting a minimumof two midnights or is on the [facility] inpatient only procedure list (status C) due [...] HPI This is a 27 y.o. male long term resident with a history of panhypopituitarism, DI, [...] over the phone, so she had his tram driver take him to the hospital. At [facility], when asked about pain he would point to his left knee. Ultimately, CT was performed which showed acute leftacetabular fracture and osteopenia. He received several doses of morphine, dilaudid, and ativan forpain and sedation prior to transfer. He has not had a seizure for about 4 years. No recent med changes according to Bettina. Labs at [facility] remarkable for Na 132. In the ER [...] None Social History Narrative Lives at the [facility], moved in 11/07/2014. Family Reviewed and non-contributory. [...] holding for OR ?? PCP: NAKIA Cifuentes [phone] Christopher Dalal Pager #[phone] Hospital Medicine IPI Certification I certify that I am a D-H credentialed attending provider with admitting privileges and that the patient meets or has met medical necessity to require an inpatient IPI level of care meeting a minimumof two midnights or is on the [facility] inpatient only procedure list (status C) due to: acetabular fracture requiring operative repair. documented in this encounter ED Notes * Darren Joyce RN - 09/03/2017 3:23 PM EST Pt resting on bed in the room with forge shop machine repairer at the bedside. Pt to have CT [...] and incontinence who presents as transfer from [facility]; he is not accompanied by family; history obtained from records at [facility]. [facility] records, he had a possible tonic clonic seizure on bus, and then was unresponsive and gurgling. He was taken to the ED and noted to have left hip and knee pain. Imaging there showed possible left acetabular fx so he was transferred here for further management. At [facility] ED, he got ativan 0.5 and morphine [...] y.o. who I accepted in transfer from [place] The patient will be evaluated in the [...] ordered. Inform MD of any changes. Await rehab/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 care placement. INDIVIDUALIZED FALL PREVENTION INTERVENTIONS: Patient-specific [...] and aggressive. VSS on room air, except [id number] throughout morning. 3 samples drawn but hemolyzed [...] (Interventions Implemented as Appropriate) 02/23/18 0415 02/23/18 7917 Coping/Psychosocial Plan Of Care Reviewed With -- [...] Group Needs assisted living facility (specify);long term (specify) -- -- Anticipated Changes Related to [...] Group Needs assisted living facility (specify);long term (specify) -- -- Anticipated Changes Related to [...] desired outcomes by discharge/transition of care. 02/05/18 0535 Skin Integrity Impairment, Risk/Actual (Adult) Skin Integrity/Wound [...] until medically ready for discharge back to long term.? INDIVIDUALIZED FALL PREVENTION INTERVENTIONS: ?? Patient-specific fall [...] Group Needs assisted living facility (specify);long term (specify) -- -- Anticipated Changes Related to [...] Group Needs assisted living facility (specify);long term (specify) -- Anticipated Changes Related to Illness none -- Living Environment Transportation Available agency transportation;van, wheelchair accessible;ambulance -- Activity/Self Care Review of Systems Equipment Currently Used at Home none -- * Plan of Care - Isabell Lauerano RN - 02/03/2018 12:26 PM EDT Problem: [...] Group Needs assisted living facility (specify);long term (specify) -- Anticipated Changes Related to Illness [...] Group Needs assisted living facility (specify);long term (specify) -- Anticipated Changes Related to Illness [...] given. Agitated and restless at beginning of overnight houseperson, but able to calm down and rest [...] Group Needs assisted living facility (specify);long term (specify) -- Anticipated Changes Related to Illness [...] Group Needs assisted living facility (specify);long term (specify) -- Anticipated Changes Related to Illness [...] and meds given. Sodium 140. RN and TOP LIFT CUTTER assisted with ambulating patient. He walked 40ft [...] Appropriate) 01/14/18 1844 Interdisciplinary Rounds/Family Conf Participants physician;nursing;porter sample case OUTCOME EVALUATION NOTE: OUTCOME SUMMARY: AxO to [...] Appropriate) 01/14/18 1844 Interdisciplinary Rounds/Family Conf Participants physician;nursing;porter sample case OUTCOME EVALUATION NOTE: OUTCOME SUMMARY: AxO to [...] Appropriate) 01/14/18 1844 Interdisciplinary Rounds/Family Conf Participants physician;nursing;porter sample case OUTCOME EVALUATION NOTE: OUTCOME SUMMARY: AxO to [...] Slept on and off overnight. This morning [id number], pt threw bed guillen across the room [...] Surveillance [continuous indirect monitoring]: Hourly rounding, call mroris within reach, bed left inlowest position, sitter [...] Group Needs assisted living facility (specify);long term (specify) Anticipated Changes Related to Illness none [...] Appropriate) 01/05/18 2215 Interdisciplinary Rounds/Family Conf Participants porter sample case;dietitian/nutrition services;nursing;physician;patient;family;social work/services OUTCOME EVALUATION NOTE: OUTCOME SUMMARY: [...] massage with lotion performed by [facility]. We have been trying to increase length of ambulation however, due to behavior patient has only been safe to stand-pivot from the bed to wheelchair/commode. Patient did sit out of bed in the wheelchair, wheeled himself around the unit multiple times, went outside with the [facility], and nursing attempted scheduled toileting. [...] his PRN Seroquel, nursing transferred patient back [facility] bed, and we were able to deescalate [...] Ongoing (Interventions Implemented as Appropriate) 12/31/17 0359 01/03/188 Coping/Psychosocial Plan Of Care Reviewed With -- [...] (Interventions Implemented as Appropriate) 12/31/17 0359 01/03/18 0827 Coping/Psychosocial Plan Of Care Reviewed With -- [...] (Interventions Implemented as Appropriate) 12/31/17 0359 01/02/18 8145 Coping/Psychosocial Plan Of Care Reviewed With -- [...] 0.05mg to 0.1mg and instructed RN and TOP LIFT CUTTER to make sure pt. Is getting his [...] EVALUATION: * Plan of Care - Kaela Norwodo RN - 12/31/2017 5:33 PM EDT Problem: [...] rounding, 1:1 sitter at bedside, call [facility], room near RN station Patient-specific [...] vanilla ice cream with his pills tonight. TOP LIFT CUTTER sitter remains at bedside ensuring safety. PLAN [...] an assessment. One time BMP obtained at [place]. Incontinent of large amounts of urine. No [...] facility;rehabilitation facility;nursing facility, skilled;nursing facility, basic;adult foster care/long term Current Discharge Risk chronically ill;cognitively impaired;dependent with mobility/activities of daily living;physical impairment Discharge Disposition still a patient Current Health Outpatient/Agency/Support Group Needs assisted living facility (specify);long-term facility (specify);correction acute care facility (specify);long term (specify) Anticipated Changes Related to Illness none [...] station, call morris within reach, sitter at [facility]. 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 TOP LIFT CUTTER played the guitar for pt which appeared [...] went outside this morning with caregiver and TOP LIFT CUTTER. Pt was incontinent throughout shift. Pt started [...] VSS. Pt went outside with caregiver and TOP LIFT CUTTER. Pt became more agitated in the afternoon, [...] OUTCOME EVALUATION: * Plan of Care - Priscilal Motley RN - 12/18/2017 5:08 AM EDT [...] Ongoing (Interventions Implemented as Appropriate) 12/13/1748 12/13/17 4783 Coping Strategies Supportive Measures active listening utilized;decision-making [...] with FWW and 1-2assist Anticipated Discharge Disposition: long-term facility (could go to handicap accesible long term with assistance) [facility] PTA Pager: [phone] Inpatient Physical Therapy 12/10/17 1145 Rehab Evaluation [...] pain when attempting stairs) Bed Mobility Assessment/Treatment Uqablp-au-Mnw [place] (Bed Mobility) supervision required Comment (Bed Mobility) extra time required Transfer Assessment/Treatment Bed-Chair [place] (Transfers) minimum assist (75% patient effort) Iqv-Hjpef-Jtp Assistive Device (Transfers) rolling walker [place] (Sit-Stand Transfers) supervision required [place] (Stand-Sit Transfers) supervision required Cia-Iftzq-Cyp Assistive Device (Transfers) rolling walker Safety Issues (Transfers) balance decreased during turns;sequencing ability decreased;step length decreased;weight-shifting ability decreased Impairments (Transfers) balance impaired;strength decreased;vision impaired Comment (Transfers) assist for walker management when turning, cues to place L LE flat on the floor Gait Assessment/Treatment [place] (Gait) contact guard assist Assistive Device (Gait) [...] x 1 Handrail Location (Stairs) both sides [place] (Stairs) moderate assist (50% patient effort);2 person [...] all bed mobility activities Bed Mobility Goal, [place] Level moderate assist (50% patient effort) Bed Mobility Goal, Outcome Achieved goal ongoing Gait Training Goal Gait Training Goal, Date Established 09/09/17 Gait Training Goal, Time to Achieve by discharge Gait Training Goal, [place] Level minimum assist (75% patient effort) Gait Training Goal, Assist Device walker, rolling Gait Training Goal, Distance to Achieve 15 ft Gait Training Goal, Outcome goal met Transfer Training Goal Transfer Training Goal, Date Established 09/09/17 Transfer Training Goal, Time to Achieve by discharge Transfer Training Goal, Activity Type cdw-om-pfuel/xyhey-sg-zum;gxa-hs-otfki/tyqhg-jc-okp Transfer Train Goal, Armbrust Level minimum assist (75% patient effort) Transfer Training Goal, Assist Device walker, rolling Transfer Training Goal, Outcome goal ongoing Physical Therapy Goal PT Goal, Date Established 09/09/17 PT Goal, Time to Achieve by discharge PT Goal, Activity Type Pt will propel self in w/c household distances PT Goal, Armbrust Level set up required;supervision required PT Goal, Outcome goal ongoing Clinical Impression Therapy Frequency 2-4 times/wk Anticipated Equipment Needs at Discharge front wheeled walker Anticipated Discharge Disposition long-term facility (could go to handicap accesible long term with assistance) * Plan of Care - [...] facility;rehabilitation facility;nursing facility, skilled;nursing facility, basic;adult foster care/long term Current Discharge Risk chronically ill;cognitively impaired;dependent with mobility/activities of daily living;physical impairment Discharge Disposition still a patient Current Health Outpatient/Agency/Support Group Needs assisted living facility (specify);long-term facility (specify);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 Night PROCESS MACHINE OPERATOR Marya paged, will pass along to [...] facility;rehabilitation facility;nursing facility, skilled;nursing facility, basic;adult foster care/long term Current Discharge Risk chronically ill;cognitively impaired;dependent with mobility/activities of daily living;physical impairment Discharge Disposition still a patient Current Health Outpatient/Agency/Support Group Needs assisted living facility (specify);long-term facility (specify);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 acute care facility (specify);long term (specify) Anticipated Changes Related to Illness none [...] offered. Fluid restriction closely monitored. Sitter and occupational therapist home based remained at beside throughout shift. No acute [...] facility;rehabilitation facility;nursing facility, skilled;nursing facility, basic;adult foster care/long term Current Discharge Risk chronically ill;cognitively impaired;dependent with mobility/activities of daily living;physical impairment Discharge Disposition still a patient Current Health Outpatient/Agency/Support Group Needs assisted living facility (specify);long-term facility (specify);correction acute care facility (specify);long term (specify) Anticipated Changes Related to Illness none [...] weakness, deficit or s/s of stroke. VSS. 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 acute care facility (specify);long term (specify) Anticipated Changes Related to Illness none [...] facility;rehabilitation facility;nursing facility, skilled;nursing facility, basic;adult foster care/long term Current Discharge Risk chronically ill;cognitively impaired;dependent with mobility/activities of daily living;physical impairment Discharge Disposition still a patient Current Health Outpatient/Agency/Support Group Needs assisted living facility (specify);long-term facility (specify);correction acute care facility (specify);long term (specify) Anticipated Changes Related to Illness none [...] facility;rehabilitation facility;nursing facility, skilled;nursing facility, basic;adult foster care/long term Current Discharge Risk chronically ill;cognitively impaired;dependent with mobility/activities of daily living;physical impairment Discharge Disposition still a patient Current Health Outpatient/Agency/Support Group Needs assisted living facility (specify);long-term facility (specify);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 acute care facility (specify);long term (specify) Anticipated Changes Related to Illness none [...] FWW and 1-2 assist Anticipated Discharge Disposition: long-term facility (could go to handicap accesible long term with assistance) L[facility] DORAN PTA Pager: [phone] Inpatient Physical Therapy 12/04/17 105 Rehab Evaluation Document Type therapy note (daily [...] after ambulating, reports pain) Bed Mobility Assessment/Treatment Oxtxic-xt-Yke Armbrust (Bed Mobility) moderate assist (50% patient effort) Comment (Bed Mobility) extra time required, donned socks and gown with assist Transfer Assessment/Treatment Bed-Chair Armbrust (Transfers) minimum assist (75% patient effort);2 person assist required Lov-Jlkkg-Hww Assistive Device (Transfers) rolling walker Armbrust (Sit-Stand Transfers) contact guard assist Armbrust (Stand-Sit Transfers) contact guard assist Ysk-Tmnlf-Szj Assistive Device (Transfers) rolling walker Safety Issues (Transfers) balance decreased during turns;step length decreased;weight-shifting ability decreased Impairments (Transfers) strength decreased;vision impaired Comment (Transfers) steady with FWW, occasional assist to move walker due to pt's decreased vision Gait Assessment/Treatment Armbrust (Gait) contact guard assist Assistive Device (Gait) [...] all bed mobility activities Bed Mobility Goal, Armbrust Level moderate assist (50% patient effort) Bed Mobility Goal, Outcome Achieved goal ongoing Gait Training Goal Gait Training Goal, Date Established 09/09/17 Gait Training Goal, Time to Achieve by discharge Gait Training Goal, Armbrust Level minimum assist (75% patient effort) Gait Training Goal, Assist Device walker, rolling Gait Training Goal, Distance to Achieve 15 ft Gait Training Goal, Outcome goal met Transfer Training Goal Transfer Training Goal, Date Established 09/09/17 Transfer Training Goal, Time to Achieve by discharge Transfer Training Goal, Activity Type chp-jr-irxhg/owlmt-ec-waq;caf-st-wjzns/feikg-zh-mrc Transfer Train Goal, Armbrust Level minimum assist (75% patient effort) Transfer Training Goal, Assist Device walker, rolling Transfer Training Goal, Outcome goal ongoing Physical Therapy Goal PT Goal, Date Established 09/09/17 PT Goal, Time to Achieve by discharge PT Goal, Activity Type Pt will propel self in w/c household distances PT Goal, Armbrust Level set up required;supervision required PT Goal, Outcome goal ongoing Clinical Impression Therapy Frequency 2-4 times/wk Anticipated Discharge Disposition long-term facility (could go to handicap accesible long term with assistance) * Plan of Care - [...] pt and then also put on the [employer] Channel for him to listen to. This [...] ground, as well as, sitter playing the [employer] forpt. The music, especially the guitar and [place] CD seemed to calm pt a bit, [...] in pain. PRN dilaudid given in the conference organizer for pain as well. Incontinent of urine [...] facility;rehabilitation facility;nursing facility, skilled;nursing facility, basic;adult foster care/long term Current Discharge Risk chronically ill;cognitively impaired;dependent with mobility/activities of daily living;physical impairment Discharge Disposition still a patient Current Health Outpatient/Agency/Support Group Needs assisted living facility (specify);long-term facility (specify);correction acute care facility (specify);long term (specify) Anticipated Changes Related to Illness none Living Environment Transportation Available family or friend will provide;ambulance;van, wheelchair accessible Activity/Self Care Review of Systems Equipment Currently Used at Home none Goal: Interdisciplinary Rounds/Family Conf Outcome: Ongoing (Interventions Implemented as Appropriate) 11/23/172133 Interdisciplinary Rounds/Family Conf Participants nursing;occupational therapy;physical therapy;physician;patient;social work/services;dietitian/nutrition services;porter sample case Problem: Skin Integrity Impairment, Risk/Actual (Adult) Goal: [...] facility;rehabilitation facility;nursing facility, skilled;nursing facility, basic;adult foster care/long term Current Discharge Risk chronically ill;cognitively impaired;dependent with mobility/activities of daily living;physical impairment Discharge Disposition still a patient Current Health Outpatient/Agency/Support Group Needs assisted living facility (specify);long-term facility (specify);correction acute care facility (specify);long term (specify) Anticipated Changes Related to Illness none Living Environment Transportation Available family or friend will provide;ambulance;van, wheelchair accessible Activity/Self Care Review of Systems Equipment Currently Used at Home none Goal: Interdisciplinary Rounds/Family Conf Outcome: Ongoing (Interventions Implemented as Appropriate) 11/23/172133 Interdisciplinary Rounds/Family Conf Participants nursing;occupational therapy;physical therapy;physician;patient;social work/services;dietitian/nutrition services;porter sample case Problem: Skin Integrity Impairment, Risk/Actual (Adult) Goal: [...] FWW and frequent cues Anticipated Discharge Disposition: long-term facility (could go to handicap accesible long term with assistance) LOU[facility] DORAN PTA Pager: [phone] Inpatient Physical Therapy 11/25/17 1030 Rehab Evaluation [...] (frequently reported no pain) Bed Mobility Assessment/Treatment Qrolkm-ul-Avr Armbrust (Bed Mobility) moderate assist (50% patient effort) Fkp-oi-Aglmxh Armbrust (Bed Mobility) minimum assist (75% patient effort) Impairments (Bed Mobility) vision impaired Comment (Bed Mobility) Extra time required, able to reposition himself in bed Transfer Assessment/Treatment Bed-Chair Armbrust (Transfers) moderate assist (50% patient effort);2 person assist required Chair-Bed Arm[place]ust (Transfers) moderate assist (50% patient effort);2 person assist required Ivc-Mcxyv-Hkt Assistive Device (Transfers) (B hand hold) Armbrust (Sit-Stand Transfers) contact guard assist Armbrust (Stand-Sit Transfers) contact guard assist Yqt-Wkaac-Uht Assistive Device (Transfers) (// bars) Armbrust (Toilet Transfers) minimum assist (75% patient effort);2 [...] for any period of time Gait Assessment/Treatment Armbrust (Gait) contact guard assist;2 person assist required [...] all bed mobility activities Bed Mobility Goal, Armbrust Level moderate assist (50% patient effort) Bed Mobility Goal, Outcome Achieved goal ongoing Gait Training Goal Gait Training Goal, Date Established 09/09/17 Gait Training Goal, Time to Achieve by discharge Gait Training Goal, Armbrust Level minimum assist (75% patient effort) Gait Training Goal, Assist Device walker, rolling Gait Training Goal, Distance to Achieve 15 ft Gait Training Goal, Outcome goal ongoing Transfer Training Goal Transfer Training Goal, Date Established 09/09/17 Transfer Training Goal, Time to Achieve by discharge Transfer Training Goal, Activity Type lip-ts-wodua/zvvty-rz-yio;dyv-ip-qbuwj/lteql-mj-kxn Transfer Train Goal, Armbrust Level minimum assist (75% patient effort) Transfer Training Goal, Assist Device walker, rolling Transfer Training Goal, Outcome goal ongoing Physical Therapy Goal PT Goal, Date Established 09/09/17 PT Goal, Time to Achieve by discharge PT Goal, Activity Type Pt will propel self in w/c household distances PT Goal, Armbrust Level set up required;supervision required PT Goal, Outcome goal ongoing Clinical Impression Therapy Frequency 2-4 times/wk Anticipated Discharge Disposition long-term facility (could go to handicap accesible long term with assistance) * Plan of Care - [...] sitter. Pt was agitated and restless from [id number] and then seemed to calm down and [...] facility;rehabilitation facility;nursing facility, skilled;nursing facility, basic;adult foster care/long term Current Discharge Risk chronically ill;cognitively impaired;dependent with mobility/activities of daily living;physical impairment Discharge Disposition still a patient Current Health Outpatient/Agency/Support Group Needs assisted living facility (specify);long-term facility (specify);correction acute care facility (specify);long term (specify) Anticipated Changes Related to Illness none Living Environment Transportation Available family or friend will provide;ambulance;van, wheelchair accessible Activity/Self Care Review of Systems Equipment Currently Used at Home none Goal: Interdisciplinary Rounds/Family Conf Outcome: Ongoing (Interventions Implemented as Appropriate) 11/23/17 2134 Interdisciplinary Rounds/Family Conf Participants nursing;occupational therapy;physical therapy;physician;patient;social work/services;dietitian/nutrition services;porter sample case Problem: Skin Integrity Impairment, Risk/Actual (Adult) Goal: [...] Outcome: Ongoing (Interventions Implemented as Appropriate) 11/23/17 7310 Coping/Psychosocial Plan Of Care Reviewed With patient;caregiver;daughter;family;guardian;friend [...] Of Care Reviewed With patient;caregiver;sibling;durable power of defense attorney;guardian;family Plan of Care Review Progress progress [...] Patient with a sitter all shift, and nurse care manager from long term at bedside. Patient extremely agitated all shift, [...] diagnosis and active problem list. RN and TOP LIFT CUTTER's state noskin issues at this time. Wound [...] Promotion: rest periods promoted Current bed: [facility] - RN has requested a net bed. [...] Please contact ANIKET ANDERS RN on pager [phone] or the wound care team at [phone] or pager [phone] with skin and wound care concerns or [...] <135 this a.m. (monitoring Na w/ desmopressin), [facility] review. Per MD, all 3 doses desmopressin [...] Facility/Level Of Care Needs -- adult foster care/long term -- Current Discharge Risk -- cognitively impaired;physical impairment -- Discharge Disposition -- still a patient -- Current Health Outpatient/Agency/Support Group Needs -- long term (specify) -- Anticipated Changes Related to Illness [...] caregiver in room. Also spoke with Dr Agiular regarding safety concerns for pt and staff. [...] Facility/Level Of Care Needs -- adult foster care/long term Current Discharge Risk -- cognitively impaired;physical impairment Discharge Disposition -- still a patient Current Health Outpatient/Agency/Support Group Needs -- long term (specify) Anticipated Changes Related to Illness -- [...] more cooperative today and receptive to this nurse care manager. Sitter at bedside. PLAN MOVING FORWARD: Continue [...] About Your Health or Care? IHSAAN -- What Questions Do You Have About [...] Facility/Level Of Care Needs -- adult foster care/long term Current Discharge Risk -- cognitively impaired;physical impairment Discharge Disposition -- still a patient Current Health Outpatient/Agency/Support Group Needs -- long term (specify) Anticipated Changes Related to Illness -- [...] 2 assist and FWW Anticipated Discharge Disposition: long-term facility (could go to handicap accesible long term with assistance) LOUIS DORAN PTA Pager: [phone] Inpatient Physical Therapy 11/12/17 1040 Rehab Evaluation [...] no pain when asked) Bed Mobility Assessment/Treatment Uzejog-ed-Oxd Armbrust (Bed Mobility) moderate assist (50% patient effort) Fkl-wy-Qeezah Armbrust (Bed Mobility) minimum assist (75% patient effort) [...] walker was not available Transfer Assessment/Treatment Bed-Chair Armbrust (Transfers) minimum assist (75% patient effort);2 person assist required Chair-Bed Armbrust (Transfers) maximum assist (25% patient effort);2 person assist required Xox-Emces-Uaz Assistive Device (Transfers) rolling walker Armbrust (Sit-Stand Transfers) minimum assist (75% patient effort);2 person assist required Armbrust (Stand-Sit Transfers) minimum assist (75% patient effort);2 person assist required Jdv-Vgwph-Oxq Assistive Device (Transfers) rolling walker Armbrust (Toilet Transfers) minimum assist (75% patient effort) [...] placed in front of him Gait Assessment/Treatment Armbrust (Gait) minimum assist (75% patient effort) Assistive [...] all bed mobility activities Bed Mobility Goal, Armbrust Level moderate assist (50% patient effort) Bed Mobility Goal, Outcome Achieved goal ongoing Gait Training Goal Gait Training Goal, Date Established 09/09/17 Gait Training Goal, Time to Achieve by discharge Gait Training Goal, Armbrust Level minimum assist (75% patient effort) Gait Training Goal, Assist Device walker, rolling Gait Training Goal, Distance to Achieve 15 ft Gait Training Goal, Outcome goal ongoing Transfer Training Goal Transfer Training Goal, Date Established 09/09/17 Transfer Training Goal, Time to Achieve by discharge Transfer Training Goal, Activity Type mtt-fz-ugofu/advxb-zh-dhx;nvd-oy-arfky/ifhtd-vy-jow Transfer Train Goal, Armbrust Level minimum assist (75% patient effort) Transfer Training Goal, Assist Device walker, rolling Transfer Training Goal, Outcome goal ongoing Physical Therapy Goal PT Goal, Date Established 09/09/17 PT Goal, Time to Achieve by discharge PT Goal, Activity Type Pt will propel self in w/c household distances PT Goal, Armbrust Level set up required;supervision required PT Goal, Outcome goal ongoing Clinical Impression Therapy Frequency 2-4 times/wk Anticipated Discharge Disposition long-term facility (could go to handicap accesible long term with assistance) * Plan of Care - [...] Facility/Level Of Care Needs -- adult foster care/long term Current Discharge Risk -- cognitively impaired;physical impairment Discharge Disposition -- still a patient Current Health Outpatient/Agency/Support Group Needs -- long term (specify) Anticipated Changes Related to Illness -- [...] down around 2200 with a restful night. 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 Sitter??at bedside throughout shift. Patient [...] -- Current Health Outpatient/Agency/Support Group Needs -- long term (specify) -- Anticipated Changes Related to Illness none -- -- Living Environment Transportation Available -- car (caregiver from long term) -- Activity/Self Care Review of Systems Equipment Currently Used at Home -- none -- ? 10/03/17 1654 ? Discharge Needs Assessment ? Concerns To Be Addressed -- ? Readmission Within The Last 30 Days -- ? Equipment Needed After Discharge -- ? Discharge Facility/Level Of Care Needs adult foster care/long term ? Current Discharge Risk -- ? Discharge [...] Plan Of Care Reviewed With -- patient (nurse care manager) Plan of Care Review Progress no change [...] -- Current Health Outpatient/Agency/Support Group Needs -- long term (specify) -- Anticipated Changes Related to Illness none -- -- Living Environment Transportation Available -- car (caregiver from long term) -- Activity/Self Care Review of Systems Equipment Currently Used at Home -- none -- ? 10/03/17 1654 ? Discharge Needs Assessment ? Concerns To Be Addressed -- ? Readmission Within The Last 30 Days -- ? Equipment Needed After Discharge -- ? Discharge Facility/Level Of Care Needs adult foster care/long term ? Current Discharge Risk -- ? Discharge [...] SUMMARY: Patient progressing at this time. VSS. [place] Manager at bedside continuously this shift. Urinary [...] self care tasks Anticipated Discharge Disposition: (P) long-term facility Pager: [phone] ZULMA Vargas 11/07/2017 Occupational Therapy Rehabilitation Department [...] time;needs repetition Bed Mobility Assessment/Treatment Roll Right Armbrust (Bed Mobility) independent Transfer Assessment/Treatment Armbrust (Sit-Stand Transfers) minimum assist (75% patient effort) Armbrust (Stand-Sit Transfers) minimum assist (75% patient effort) Qch-Qwmte-Vxn Assistive Device (Transfers) rolling walker Bcx-Whhan-Ibb Assistive Device (Transfers) rolling walker Chair-Bed Armbrust (Transfers) minimum assist (75% patient effort);verbal cues required Upper Body Dressing Assessment/Training Position (UB Dressing) supported sitting Armbrust Level (UB Dressing) set up required Comment (UB Dressing) to trent kramer Lower Body Dressing Assessment/Training Position (LB Dressing) sitting;standing Armbrust Level (LB Dressing) set up required Impairments (LB Dressing) balance impaired;vision impaired;pain;ROM (range of motion) decreased Comment (LB Dressing) to trent hall Grooming Assessment/Training Position (Grooming) supported sitting Armbrust Level (Grooming) set up required Comment (Grooming) [...] wheelchair, commode, shower seat) Anticipated Discharge Disposition long-term facility * Plan of Care - Louis [...] transfers with 2 assist Anticipated Discharge Disposition: long-term facility (could go to handicap accesible long term with assistance) LOUIS DORAN PTA Pager: [phone] Inpatient Physical Therapy 11/07/17 1030 Rehab Evaluation [...] Assessment/Treatment Assistive Device (Bed Mobility) bed rails Oztthk-sf-Dnj Armbrust (Bed Mobility) minimum assist (75% patient effort) Safety Issues (Bed Mobility) decreased use of legs for bridging/pushing Impairments (Bed Mobility) vision impaired Comment (Bed Mobility) HOB slightly elevated, extra time required Transfer Assessment/Treatment Bed-Chair Armbrust (Transfers) moderate assist (50% patient effort);2 person assist required Chair-Bed Armbrust (Transfers) moderate assist (50% patient effort);2 person assist required Oxv-Owixt-Kwq Assistive Device (Transfers) (B hand hold) Armbrust (Sit-Stand Transfers) minimum assist (75% patient effort);2 person assist required Armbrust (Stand-Sit Transfers) minimum assist (75% patient effort);2 person assist required Tbx-Zkjue-Bmi Assistive Device (Transfers) rolling walker Armbrust (Toilet Transfers) moderate assist (50% patient effort);2 person assist required Assistive Device (Toilet Transfers) bedside commode;rolling walker Maintain Weight Bearing Status (Transfers) able to maintain weight bearing status Safety Issues (Transfers) balance decreased during turns;sequencing ability decreased;weight-shifting ability decreased;loses balance backward Impairments (Transfers) balance impaired;strength decreased;vision impaired Comment (Transfers) transferred from various surfaces, difficulty turning, poor eccentric control when sitting Gait Assessment/Treatment Armbrust (Gait) minimum assist (75% patient effort);2 person [...] all bed mobility activities Bed Mobility Goal, Armbrust Level moderate assist (50% patient effort) Bed Mobility Goal, Outcome Achieved goal ongoing Gait Training Goal Gait Training Goal, Date Established 09/09/17 Gait Training Goal, Time to Achieve by discharge Gait Training Goal, Armbrust Level minimum assist (75% patient effort) Gait Training Goal, Assist Device walker, rolling Gait Training Goal, Distance to Achieve 15 ft Gait Training Goal, Outcome goal ongoing Transfer Training Goal Transfer Training Goal, Date Established 09/09/17 Transfer Training Goal, Time to Achieve by discharge Transfer Training Goal, Activity Type npg-fz-cvdhe/diyxv-if-lze;rcs-xu-rffux/bcwpt-xw-nok Transfer Train Goal, Armbrust Level minimum assist (75% patient effort) Transfer Training Goal, Assist Device walker, rolling Transfer Training Goal, Outcome goal ongoing Physical Therapy Goal PT Goal, Date Established 09/09/17 PT Goal, Time to Achieve by discharge PT Goal, Activity Type Pt will propel self in w/c household distances PT Goal, Armbrust Level set up required;supervision required PT Goal, Outcome goal ongoing Clinical Impression Therapy Frequency 2-4 times/wk Anticipated Discharge Disposition long-term facility (could go to handicap accesible long term with assistance) * Plan of Care - [...] -- Current Health Outpatient/Agency/Support Group Needs -- long term (specify) -- Anticipated Changes Related to Illness none -- -- Living Environment Transportation Available -- car (caregiver from long term) -- Activity/Self Care Review of Systems Equipment Currently Used at Home -- none -- ? 10/03/17 1654 ?? Discharge Needs Assessment ?? Concerns To Be Addressed -- ?? Readmission Within The Last 30 Days -- ?? Equipment Needed After Discharge -- ?? Discharge Facility/Level Of Care Needs adult foster care/long term ?? Current Discharge Risk -- ?? Discharge [...] administered per order using FACES scale. [employer] RAILROAD CAR LOADER and well-approximated/healed. Sitter at bedside throughout shift. [...] Prevention-Safe Patient Handling ?? 10/03/17 0900 10/03/17 3700 Restraint Interventions Safety Promotion/Fall Prevention activity supervised;fall [...] -- Current Health Outpatient/Agency/Support Group Needs -- long term (specify) -- Anticipated Changes Related to Illness none -- -- Living Environment Transportation Available -- car (caregiver from long term) -- Activity/Self Care Review of Systems Equipment Currently Used at Home -- none -- ?? 10/03/17 1904 Discharge Needs Assessment Concerns To Be Addressed -- Readmission Within The Last 30 Days -- Equipment Needed After Discharge -- Discharge Facility/Level Of Care Needs adult foster care/long term Current Discharge Risk -- Discharge Disposition -- [...] Facility/Level Of Care Needs -- adult foster care/long term Current Discharge Risk -- cognitively impaired;physical impairment Discharge Disposition -- still a patient Current Health Outpatient/Agency/Support Group Needs -- long term (specify) Anticipated Changes Related to Illness -- [...] Marcano at bedside, call morris within reach, nurse care manager at bedside Patient-specific fall prevention interventions for [...] pivot with 2 assist Anticipated Discharge Disposition: long-term facility (could go to handicap accesible long term with assistance) [facility] PTA Pager: [phone] Inpatient Physical Therapy 11/05/17 1005 Rehab Evaluation [...] Assessment/Treatment Assistive Device (Bed Mobility) bed rails Vfisug-in-Zgt Armbrust (Bed Mobility) supervision required Comment (Bed Mobility) HOB elevated, steady in sitting Transfer Assessment/Treatment Bed-Chair Armbrust (Transfers) minimum assist (75% patient effort);moderate assist (50% patienteffort);2 person assist required Chair-Bed Armbrust (Transfers) minimum assist (75% patient effort);moderate assist (50% patienteffort);2 person assist required Npj-Mywdz-Aym Assistive Device (Transfers) rolling walker Armbrust (Sit-Stand Transfers) minimum assist (75% patient effort);2 person assist required Armbrust (Stand-Sit Transfers) minimum assist (75% patient effort);2 person assist required Zqz-Ijuwz-Rao Assistive Device (Transfers) rolling walker Maintain Weight Bearing Status (Transfers) able to maintain weight bearing status Safety Issues (Transfers) balance decreased during turns;sequencing ability decreased;step length decreased;weight-shifting ability decreased Impairments (Transfers) balance impaired;strength decreased Comment (Transfers) Step by step cues provided, slightly unsteady and leaning toward the L in standing Gait Assessment/Treatment Armbrust (Gait) minimum assist (75% patient effort);moderate assist [...] all bed mobility activities Bed Mobility Goal, Armbrust Level moderate assist (50% patient effort) Bed Mobility Goal, Outcome Achieved goal ongoing Gait Training Goal Gait Training Goal, Date Established 09/09/17 Gait Training Goal, Time to Achieve by discharge Gait Training Goal, Armbrust Level minimum assist (75% patient effort) Gait Training Goal, Assist Device walker, rolling Gait Training Goal, Distance to Achieve 15 ft Gait Training Goal, Outcome goal ongoing Transfer Training Goal Transfer Training Goal, Date Established 09/09/17 Transfer Training Goal, Time to Achieve by discharge Transfer Training Goal, Activity Type zdn-wd-xlphe/fyfer-ec-oew;gdc-tz-lrvtd/bfnyn-va-vnj Transfer Train Goal, Armbrust Level minimum assist (75% patient effort) Transfer Training Goal, Assist Device walker, rolling Transfer Training Goal, Outcome goal ongoing Physical Therapy Goal PT Goal, Date Established 09/09/17 PT Goal, Time to Achieve by discharge PT Goal, Activity Type Pt will propel self in w/c household distances PT Goal, Armbrust Level set up required;supervision required PT Goal, [...] Discharge Facility/Level Of Care Needs adult foster care/long term Current Discharge Risk cognitively impaired;physical impairment Discharge [...] with assistance of 2. Anticipated Discharge Disposition: long-term facility, other (see comments) (vs. 27/01 assistance, PT/OT) Pager: [phone] SKYLA AYALA OT 11/04/2017 Occupational Therapy Rehabilitation [...] Mobility) bed rails (HOB slightly raised ) Jlovjv-xi-Off Armbrust (Bed Mobility) minimum assist (75% patient effort);verbal cues required Impairments (Bed Mobility) pain;flexibility decreased (increased time, slow transition ) Comment (Bed Mobility) able to sit eob with supervision Roll Left Armbrust (Bed Mobility) minimum assist (75% patient effort);verbal cues required (tactile cues ) Roll Right Armbrust (Bed Mobility) minimum assist (75% patient effort);verbal cues required (tactile cues) Transfer Assessment/Treatment Armbrust (Sit-Stand Transfers) minimum assist (75% patient effort);verbal cues required;contactguard assist (1-2, tactile cues) Armbrust (Stand-Sit Transfers) moderate assist (50% patient effort);verbal cues required (as tries to sit prematurely before squared up) Impairments (Transfers) balance impaired;strength decreased;other (see comments) (restricted weight bearing, poor safety awareness) Comment (Transfers) pivoted from bed to w/c. Got up to w/c to head off floor with caregiver to get hair cut. Bed-Chair Armbrust (Transfers) minimum assist (75% patient effort);verbal cues required;contactguard assist (1-2) Jcg-Holyt-Iim Assistive Device (Transfers) rolling walker Upper Body Dressing Assessment/Training Position (UB Dressing) supported sitting (in w/c) Armbrust Level (UB Dressing) set up required;verbal cues required;minimum assist (75% patient effort) Impairments (UB Dressing) balance impaired;other (see comments);vision impaired (orientating item, ) Comment (UB Dressing) help to orient shirt for Pt and Pt was able to don arms/head through and pulldown with prompts seated in w/c. Lower Body Dressing Assessment/Training Position (LB Dressing) supine Armbrust Level (LB Dressing) set up required;verbal cues [...] of caregiver. Toileting Assessment/Training Position (Toileting) supine Armbrust Level (Toileting) minimum assist (75% patient effort);set [...] commode, shower seat ) Anticipated Discharge Disposition long-term facility;other (see comments) (vs. 27/01 assistance, PT/OT) [...] Pt assisted to bedside commode during shift. Railway Station Manager at bedside. Will continue to monitor. [...] intermittently assisted to bedside commode during shift. Railway Station Manager at bedside. Will continue to monitor. PLAN MOVING FORWARD: Pain/spasm control Ongoing D/C planning INDIVIDUALIZED FALL PREVENTION INTERVENTIONS: Patient-specific fall risk factors per assessment: [current deficits]: Cognitive impairment, impaired mobility Assistance [level of assistance required for transfers and ambulation]: 1-2 assist Supervision [direct monitoring required during toileting and ADLs]: Hands on Surveillance [continuous indirect monitoring]: Railway Station Manager at bedside, hourly rounding, [employer] [...] go outside with supervision from staff and forge shop machine repairer. Railway Station Manager at bedside throughout shift. Pt. Assisted [...] with 1-2 assist, FWW Anticipated Discharge Disposition: long-term facility (could go to handicap accesible long term with assistance) [facility] PTA Pager: [phone] Inpatient Physical Therapy 10/31/17 1230 Rehab Evaluation Document Type therapy note (daily note) Total Evaluation Minutes, Physical Therapy 30 (TE-F x 2) Patient Effort excellent Symptoms Noted During/After Treatment none General Information Patient/Family/Caregiver Comments/Observations Minimal yelling today, followed direction well Precautions/Restrictions fall Treatment Number PT 8 Pain Scale/Rating Pain Assessment Scale Faces (Roberson-Carter FACES Pain Rating Scale) Pain Level 0 Transfer Assessment/Treatment Armbrust (Sit-Stand Transfers) minimum assist (75% patient effort) Armbrust (Stand-Sit Transfers) moderate assist (50% patient effort) Veg-Egcko-Pln Assistive Device (Transfers) rolling walker (// bars) Maintain Weight Bearing Status (Transfers) able to maintain weight bearing status Safety Issues (Transfers) step length decreased;weight-shifting ability decreased Impairments (Transfers) strength decreased Comment (Transfers) Poor eccentric control when sitting Gait Assessment/Treatment Armbrust (Gait) minimum assist (75% patient effort);2 person [...] all bed mobility activities Bed Mobility Goal, Armbrust Level moderate assist (50% patient effort) Bed Mobility Goal, Outcome Achieved goal ongoing Gait Training Goal Gait Training Goal, Date Established 09/09/17 Gait Training Goal, Time to Achieve by discharge Gait Training Goal, Armbrust Level minimum assist (75% patient effort) Gait Training Goal, Assist Device walker, rolling Gait Training Goal, Distance to Achieve 15 ft Gait Training Goal, Outcome goal ongoing Transfer Training Goal Transfer Training Goal, Date Established 09/09/17 Transfer Training Goal, Time to Achieve by discharge Transfer Training Goal, Activity Type osd-ui-rxbva/bwuns-tw-bdi;qwk-xe-wkwio/srqfy-ex-ggx Transfer Train Goal, Armbrust Level minimum assist (75% patient effort) Transfer Training Goal, Assist Device walker, rolling Transfer Training Goal, Outcome goal ongoing Physical Therapy Goal PT Goal, Date Established 09/09/17 PT Goal, Time to Achieve by discharge PT Goal, Activity Type Pt will propel self in w/c household distances PT Goal, Armbrust Level set up required;supervision required PT Goal, [...] screaming and moaning; slept only from approximately 2626-2067. MD made aware. Pt denied pain. Exhausted [...] Of Care Needs -- -- adult foster care/long term Current Discharge Risk -- cognitively impaired;physical impairment -- Discharge Disposition -- still a patient -- Current Health Outpatient/Agency/Support Group Needs -- long term (specify) -- Anticipated Changes Related to Illness none -- -- Living Environment Transportation Available -- car (caregiver from long term) -- Activity/Self Care Review of Systems Equipment [...] Of Care Needs -- -- adult foster care/long term Current Discharge Risk -- cognitively impaired;physical impairment -- Discharge Disposition -- still a patient -- Current Health Outpatient/Agency/Support Group Needs -- long term (specify) -- Anticipated Changes Related to Illness none -- -- Living Environment Transportation Available -- car (caregiver from long term) -- Activity/Self Care Review of Systems Equipment [...] Ongoing (Interventions Implemented as Appropriate) 10/24/17 01210/27/17 2140 Coping/Psychosocial Plan Of Care Reviewed With -- patient Plan of Care Review Progress no change -- OUTCOME EVALUATION NOTE: OUTCOME SUMMARY: Pt was alert throughout shift, caregiver at side and active in patient care. Patients pain adequately controlled, PRN ativan given for agitation, see MAR for medications given. Pt went around facility w/ caregiver and TOP LIFT CUTTER in wheelchair. Less than 2000ml given throughout day. See Doc Flowsheet for details. Incontinence care given post urine and stool occurrence. Will continue to monitor and help patient reach d/c goals. PLAN MOVING FORWARD: Pain control Mobilize out of bed. D/c planning INDIVIDUALIZED FALL PREVENTION: Patient is currently a high risk to Fall. companion caregiver at bedside or one-to-one monitoring in [...] Of Care Needs -- -- adult foster care/long term Current Discharge Risk -- cognitively impaired;physical impairment -- Discharge Disposition -- still a patient -- Current Health Outpatient/Agency/Support Group Needs -- long term (specify) -- Anticipated Changes Related to Illness none -- -- Living Environment Transportation Available -- car (caregiver from long term) -- Activity/Self Care Review of Systems Equipment [...] Of Care Needs -- -- adult foster care/long term Current Discharge Risk -- cognitively impaired;physical impairment -- Discharge Disposition -- still a patient -- Current Health Outpatient/Agency/Support Group Needs -- long term (specify) -- Anticipated Changes Related to Illness none -- -- Living Environment Transportation Available -- car (caregiver from long term) -- Activity/Self Care Review of Systems Equipment [...] Care Reviewed With -- patient;other (see comments) (TOP LIFT CUTTER/sitter) Plan of Care Review Progress no change [...] Of Care Needs -- -- adult foster care/long term Current Discharge Risk -- cognitively impaired;physical impairment -- Discharge Disposition -- still a patient -- Current Health Outpatient/Agency/Support Group Needs -- long term (specify) -- Anticipated Changes Related to Illness none -- -- Living Environment Transportation Available -- car (caregiver from long term) -- Activity/Self Care Review of Systems Equipment [...] in wheelchair for about an hour with nurse care manager. Remains incontinent. companion caregiver at bedside.Will continue to monitor. PLAN [...] History: Procedure Laterality Date ??? PRO OPEN BOTTOM BLEACHER FIX ACETABULAR FX Left 09/04/2017 @OPEN TREATMENT, ACETABULAR FX (WRVU 25.41) performed by Amy Lance MD at [facility] Patient has following SCHEDULED [...] self care tasks Anticipated Discharge Disposition: (P) long-term facility Pager: [phone] ZULMA Vargas 10/27/2017 Occupational Therapy Rehabilitation Department [...] Scale) Pain Level 5 Bed Mobility Assessment/Treatment Cisprk-aq-Hnt Armbrust (Bed Mobility) verbal cues required (extended time) Transfer Assessment/Treatment Armbrust (Sit-Stand Transfers) contact guard assist Armbrust (Stand-Sit Transfers) contact guard assist Scg-Uzpte-Oid Assistive Device (Transfers) rolling walker Bed-Chair Armbrust (Transfers) minimum assist (75% patient effort);verbal cues required Wheelchair Training/Management Transfer Type (Wheelchair) stand pivot transfer Propulsion Training (Wheelchair) forward propulsion Distance Propelled in Feet (Wheelchair) 50ft Lower Body Dressing Assessment/Training Position (LB Dressing) sitting (supine in bed) Armbrust Level (LB Dressing) conditional independence Impairments (LB [...] Therapy Frequency 2-4 times/wk Anticipated Discharge Disposition long-term facility * Med Student Progress Note - [...] Care: FULL CODE Team Pager( Coverage 27/01): #[phone] PCP: NAKIA Cifuentes [phone] Bonnie Velásquez 10/25/2017 Pager [phone] * Plan of Care - Ren Walters [...] all self care tasks Anticipated Discharge Disposition: long-term facility Pager: [phone] ZULMA Vargas 10/25/2017 Occupational Therapy Rehabilitation Department [...] time;needs cueing;needs increased time;needs repetition Transfer Assessment/Treatment Armbrust (Sit-Stand Transfers) contact guard assist Armbrust (Stand-Sit Transfers) contact guard assist Comment (Transfers) pt did well maintaining his precautions Bed-Chair Armbrust (Transfers) minimum assist (75% patient effort) Iww-Yeirx-Syx Assistive Device (Transfers) rolling walker Chair-Bed Armbrust (Transfers) minimum assist (75% patient effort) Lower Body Dressing Assessment/Training Position (LB Dressing) sitting Armbrust Level (LB Dressing) set up required Impairments (LB Dressing) vision impaired Comment (LB Dressing) to don pants Toileting Assessment/Training Position (Toileting) sitting (EOB) Armbrust Level (Toileting) set up required Comment (Toileting) [...] Care: FULL CODE Team Pager(MD Coverage 27/01): #[phone] PCP: NAKIA Cifuentes [phone] Bonnie Velásquez 10/24/2017 Pager [phone] * Plan of Care - Lenore Yates [...] Care: FULL CODE Team Pager( Coverage 27/01): #[phone] PCP: NAKIA Cifuentes [phone] Bonnie Velásquez 10/23/2017 Pager [phone] * Plan of Care - Lenore Yates [...] Medicated with dilaudid 4mg powith good effect. slot attendant in room with patient this shift. 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, cognitively impaired,immobility Assistance [level of assistance required for transfers and ambulation]: Dependent Supervision [direct monitoring required during toileting and ADLs]: Dependent Surveillance [continuous indirect monitoring]: Masimo, call morris in reach, purposeful rounding, consumer safety inspector Patient-specific fall prevention interventions for sensory deficits [...] pivot transfer 1-2 assist Anticipated Discharge Disposition: long-term facility (could go to handicap accesible long term with assistance) [facility] PTA Pager: [phone] Inpatient Physical Therapy 10/22/17 1110 Rehab Evaluation [...] Living Environment Comment Pt lives in a long term with 3 other roomates. The solar energy installation manager of the long term reports that they have a caregiver there [...] a good distraction from patient. At the long term he tends to wear jeans with no shirt as he tries to rip them off. He is able to communicate intermittently with verbal words. the caregivers help shower anddress him daily. Pain Scale/Rating Pain Assessment Scale Word (verbal rating pain scale) Pain Level (pt reported no pain when asked) Bed Mobility Assessment/Treatment Vpsxca-du-Zqa Armbrust (Bed Mobility) minimum assist (75% patient effort) Comment (Bed Mobility) Able to sit edge of bed with supervision Transfer Assessment/Treatment Bed-Chair Armbrust (Transfers) maximum assist (25% patient effort) Kiq-Vyhwy-Tqt Assistive Device (Transfers) rolling walker Armbrust (Sit-Stand Transfers) contact guard assist;minimum assist (75% patient effort) Armbrust (Stand-Sit Transfers) contact guard assist Pwt-Mjdvu-Ijv Assistive Device (Transfers) (// bars) Armbrust (Toilet Transfers) maximum assist (25% patient effort) [...] unsteady, sits early at times Gait Assessment/Treatment Armbrust (Gait) minimum assist (75% patient effort) Assistive [...] all bed mobility activities Bed Mobility Goal, Armbrust Level moderate assist (50% patient effort) Bed Mobility Goal, Outcome Achieved goal ongoing Gait Training Goal Gait Training Goal, Date Established 09/09/17 Gait Training Goal, Time to Achieve by discharge Gait Training Goal, Armbrust Level minimum assist (75% patient effort) Gait Training Goal, Assist Device walker, rolling Gait Training Goal, Distance to Achieve 15 ft Gait Training Goal, Outcome goal ongoing Transfer Training Goal Transfer Training Goal, Date Established 09/09/17 Transfer Training Goal, Time to Achieve by discharge Transfer Training Goal, Activity Type otl-qs-ncmuu/wyhvs-mg-oyo;pov-ma-tcyfu/iypqo-ji-krc Transfer Train Goal, Armbrust Level minimum assist (75% patient effort) Transfer Training Goal, Assist Device walker, rolling Transfer Training Goal, Outcome goal ongoing Physical Therapy Goal PT Goal, Date Established 09/09/17 PT Goal, Time to Achieve by discharge PT Goal, Activity Type Pt will propel self in w/c household distances PT Goal, Armbrust Level set up required;supervision required PT Goal, Outcome goal ongoing Clinical Impression Therapy Frequency 2-4 times/wk Anticipated Discharge Disposition long-term facility ([facility]) * Med Student Progress [...] Care: FULL CODE Team Pager(MD Coverage 27/01): #[phone] PCP: NAKIA Cifuentes [phone] Bonnie Velásquez 10/22/2017 Pager [phone] * Plan of Care - Elsy Mei [...] Of Care Needs -- -- adult foster care/long term Current Discharge Risk -- cognitively impaired;physical impairment -- Discharge Disposition -- still a patient -- Current Health Outpatient/Agency/Support Group Needs -- long term (specify) -- Anticipated Changes Related to Illness none -- -- Living Environment Transportation Available -- car (caregiver from long term) -- Activity/Self Care Review of Systems Equipment [...] self care tasks Anticipated Discharge Disposition: (P) long-term facility Pager: [phone] ZULMA Vargas 10/21/2017 Occupational Therapy Rehabilitation Department [...] Scale) Pain Level 0 Bed Mobility Assessment/Treatment Bvftbs-rp-Ava Armbrust (Bed Mobility) minimum assist (75% patient effort);verbal cues required Bps-qr-Jakowc Armbrust (Bed Mobility) minimum assist (75% patient effort);verbal cues required Comment (Bed Mobility) difficult arousing pt Clinical Impression Criteria for Skilled Therapeutic Interventions Met yes;treatment indicated Rehab Potential fair, will monitor progress closely Therapy Frequency 2-4 times/wk Anticipated Discharge Disposition long-term facility * Plan of Care - Lenore [...] consult regarding this case. Kris Gilbert DMD [phone] * Med Student Progress Note - Bonnie [...] Care: FULL CODE Team Pager( Coverage 27/01): #[phone] PCP: NAKIA Cifuentes [phone] Bonnie Velásquez 10/21/2017 Pager [phone] * Plan of Care - Elsy Mei [...] Of Care Needs -- -- adult foster care/long term Current Discharge Risk -- cognitively impaired;physical impairment -- Discharge Disposition -- still a patient -- Current Health Outpatient/Agency/Support Group Needs -- long term (specify) -- Anticipated Changes Related to Illness none -- -- Living Environment Transportation Available -- car (caregiver from long term) -- Activity/Self Care Review of Systems Equipment [...] Care: FULL CODE Team Pager( Coverage 27/01): #[phone] PCP: NAKIA Cifuentes [phone] Bonnie Velásquez 10/20/2017 Pager [phone] * Plan of Care - Dinorah Tate [...] Of Care Needs -- -- adult foster care/long term Current Discharge Risk -- cognitively impaired;physical impairment -- Discharge Disposition -- still a patient -- Current Health Outpatient/Agency/Support Group Needs -- long term (specify) -- Anticipated Changes Related to Illness none -- -- Living Environment Transportation Available -- car (caregiver from long term) -- Activity/Self Care Review of Systems Equipment [...] Appropriate) 10/10/17 1735 Interdisciplinary Rounds/Family Conf Participants family;nursing;patient;physician;porter sample case (caregiver) Problem: Skin Integrity Impairment, Risk/Actual (Adult) [...] Of Care Needs -- -- adult foster care/long term Current Discharge Risk -- cognitively impaired;physical impairment -- Discharge Disposition -- still a patient -- Current Health Outpatient/Agency/Support Group Needs -- long term (specify) -- Anticipated Changes Related to Illness none -- -- Living Environment Transportation Available -- car (caregiver from long term) -- Activity/Self Care Review of Systems Equipment [...] on 3200 ml fluid restriction. Patient had nurse care manager [phone] today. Patients pain treated with scheduled and [...] Care: FULL CODE Team Pager( Coverage 27/01): #[phone] PCP: NAKIA Cifuentes [phone] Bonnie Velásquez 10/18/2017 Pager [phone] * Plan of Care - Alanna Paulino, [...] Care: FULL CODE Team Pager(MD Coverage 27/01): #[phone] PCP: NAKIA Cifuentes [phone] Bonnie Velásquez 10/17/2017 Pager [phone] * Plan of Care - Landy Benitez [...] Care: FULL CODE Team Pager(MD Coverage 27/01): #[phone] PCP: NAKIA Cifuentes [phone] Bonnie Velásquez 10/16/2017 Pager [phone] * Plan of Care - Landy Benitez [...] Care: FULL CODE Team Pager(MD Coverage 27/01): #[phone] PCP: NAKIA Cifuentes [phone] Bonnie Velásquez 10/15/2017 Pager [phone] * Plan of Care - Lori Ordaz [...] Care: FULL CODE Team Pager(MD Coverage 27/01): #[phone] PCP: NAKIA Cifuentes [phone] Bonine Velásquez 10/14/2017 Pager [phone] * Plan of Care - Lori Ordaz [...] self care tasks Anticipated Discharge Disposition: (P) long-term facility Pager: [phone] ZULMA Vargas 10/14/2017 Occupational Therapy Rehabilitation Department [...] Assessment/Treatment Assistive Device (Bed Mobility) bed rails Sonidj-hm-Pgd Armbrust (Bed Mobility) minimum assist (75% patient effort);verbal cues required Hoz-pk-Klpeuh Armbrust (Bed Mobility) supervision required;verbal cues required Impairments (Bed Mobility) pain;flexibility decreased Comment (Bed Mobility) extended time required Transfer Assessment/Treatment Armbrust (Sit-Stand Transfers) moderate assist (50% patient effort) Armbrust (Stand-Sit Transfers) moderate assist (50% patient effort) Impairments (Transfers) flexibility decreased;strength decreased Comment (Transfers) pt able to show which leg is non-weight bearing but unable to maintain it today Bed-Chair Armbrust (Transfers) maximum assist (25% patient effort);verbal cues required Zii-Xsruz-Hjd Assistive Device (Transfers) rolling walker Chair-Bed Armbrust (Transfers) maximum assist (25% patient effort);verbal cues required Gait Assessment/Treatment Armbrust (Gait) minimum assist (75% patient effort) Distance in Feet (Gait) 3ft Maintain Weight Bearing Status (Gait) cues to maintain weight bearing status;assist to maintain weight bearing status;unable to maintain weight bearing status Lower Body Dressing Assessment/Training Position (LB Dressing) (supine in bed) Armbrust Level (LB Dressing) minimum assist (75% patient effort) Impairments (LB Dressing) vision impaired;flexibility decreased Comment (LB Dressing) to don pants, min A to thread L feet in Grooming Assessment/Training Position (Grooming) sitting (in WC) Armbrust Level (Grooming) set up required;verbal cues required [...] Therapy Frequency 2-4 times/wk Anticipated Discharge Disposition long-term facility * Plan of Care - [place] [...] -- Current Health Outpatient/Agency/Support Group Needs -- long term (specify) -- Anticipated Changes Related to Illness none -- -- Living Environment Transportation Available -- car (caregiver from long term) -- Activity/Self Care Review of Systems Equipment Currently Used at Home -- none -- 10/03/17 1654 Discharge Needs Assessment Concerns To Be Addressed -- Readmission Within The Last 30 Days -- Equipment Needed After Discharge -- Discharge Facility/Level Of Care Needs adult foster care/long term Current Discharge Risk -- Discharge Disposition -- Current Health Outpatient/Agency/Support Group Needs -- Anticipated Changes Related to Illness -- Living Environment Transportation Available -- Activity/Self Care Review of Systems Equipment Currently Used at Home -- Goal: Interdisciplinary Rounds/Family Conf 10/10/17 1735 Interdisciplinary Rounds/Family Conf Participants family;nursing;patient;physician;porter sample case (caregiver) Problem: Skin Integrity Impairment, Risk/Actual (Adult) [...] -- Current Health Outpatient/Agency/Support Group Needs -- long term (specify) -- Anticipated Changes Related to Illness none -- -- Living Environment Transportation Available -- car (caregiver from long term) -- Activity/Self Care Review of Systems Equipment Currently Used at Home -- none -- 10/03/17 1654 Discharge Needs Assessment Concerns To Be Addressed -- Readmission Within The Last 30 Days -- Equipment Needed After Discharge -- Discharge Facility/Level Of Care Needs adult foster care/long term Current Discharge Risk -- Discharge Disposition -- Current Health Outpatient/Agency/Support Group Needs -- Anticipated Changes Related to Illness -- Living Environment Transportation Available -- Activity/Self Care Review of Systems Equipment Currently Used at Home -- Goal: Interdisciplinary Rounds/Family Conf 10/10/17 2935 Interdisciplinary Rounds/Family Conf Participants family;nursing;patient;physician;porter sample case (caregiver) Problem: Skin Integrity Impairment, Risk/Actual (Adult) [...] alarm on to help maintain patient safety. companion caregiver at bedside throughout the shift. Will [...] -- Current Health Outpatient/Agency/Support Group Needs -- long term (specify) -- Anticipated Changes Related to Illness none -- -- Living Environment Transportation Available -- car (caregiver from long term) -- Activity/Self Care Review of Systems Equipment Currently Used at Home -- none -- 10/03/17 1654 Discharge Needs Assessment Concerns To Be Addressed -- Readmission Within The Last 30 Days -- Equipment Needed After Discharge -- Discharge Facility/Level Of Care Needs adult foster care/long term Current Discharge Risk -- Discharge Disposition -- [...] -- Current Health Outpatient/Agency/Support Group Needs -- long term (specify) -- Anticipated Changes Related to Illness none -- -- Living Environment Transportation Available -- car (caregiver from long term) -- Activity/Self Care Review of Systems Equipment Currently Used at Home -- none -- 10/03/17 1654 Discharge Needs Assessment Concerns To Be Addressed -- Readmission Within The Last 30 Days -- Equipment Needed After Discharge -- Discharge Facility/Level Of Care Needs adult foster care/long term Current Discharge Risk -- Discharge Disposition -- [...] -- Current Health Outpatient/Agency/Support Group Needs -- long term (specify) -- Anticipated Changes Related to Illness none -- -- Living Environment Transportation Available -- car (caregiver from long term) -- Activity/Self Care Review of Systems Equipment Currently Used at Home -- none -- 10/03/17 1654 Discharge Needs Assessment Concerns To Be Addressed -- Readmission Within The Last 30 Days -- Equipment Needed After Discharge -- Discharge Facility/Level Of Care Needs adult foster care/long term Current Discharge Risk -- Discharge Disposition -- [...] -- Current Health Outpatient/Agency/Support Group Needs -- long term (specify) -- Anticipated Changes Related to Illness none -- -- Living Environment Transportation Available -- car (caregiver from long term) -- Activity/Self Care Review of Systems Equipment Currently Used at Home -- none -- 10/03/17 1654 Discharge Needs Assessment Concerns To Be Addressed -- Readmission Within The Last 30 Days -- Equipment Needed After Discharge -- Discharge Facility/Level Of Care Needs adult foster care/long term Current Discharge Risk -- Discharge Disposition -- [...] -- Current Health Outpatient/Agency/Support Group Needs -- long term (specify) -- Anticipated Changes Related to Illness none -- -- Living Environment Transportation Available -- car (caregiver from long term) -- Activity/Self Care Review of Systems Equipment Currently Used at Home -- none -- 10/03/17 1654 Discharge Needs Assessment Concerns To Be Addressed -- Readmission Within The Last 30 Days -- Equipment Needed After Discharge -- Discharge Facility/Level Of Care Needs adult foster care/long term Current Discharge Risk -- Discharge Disposition -- [...] self care tasks Anticipated Discharge Disposition: (P) long-term facility Pager: [phone] ZULMA Vargas 10/04/2017 Occupational Therapy Rehabilitation Department [...] Status left lower extremity Bed Mobility Assessment/Treatment Mnp-kk-Pwhbzj Armbrust (Bed Mobility) minimum assist (75% patient effort);verbal cues required Impairments (Bed Mobility) pain;ROM (range of motion) decreased Transfer Assessment/Treatment Armbrust (Sit-Stand Transfers) moderate assist (50% patient effort);verbal cues required Comment (Transfers) Pt able to maintain WB precautions Aec-Nevgq-Bef Assistive Device (Transfers) rolling walker Chair-Bed Armbrust (Transfers) moderate assist (50% patient effort);verbal cues [...] Therapy Frequency 2-4 times/wk Anticipated Discharge Disposition long-term facility * Plan of Care - [place] [...] Sister at bedside all night. 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 Will continue to monitor and [...] -- Current Health Outpatient/Agency/Support Group Needs -- long term (specify) -- Anticipated Changes Related to Illness none -- -- Living Environment Transportation Available -- car (caregiver from long term) -- Activity/Self Care Review of Systems Equipment [...] -- Current Health Outpatient/Agency/Support Group Needs -- long term (specify) -- Anticipated Changes Related to Illness none -- -- Living Environment Transportation Available -- car (caregiver from long term) -- Activity/Self Care Review of Systems Equipment [...] -- Current Health Outpatient/Agency/Support Group Needs -- long term (specify) -- Anticipated Changes Related to Illness [...] -- Current Health Outpatient/Agency/Support Group Needs -- long term (specify) -- Anticipated Changes Related to Illness [...] assist and FWW LOUIS DORAN PTA Pager: [phone] Inpatient Physical Therapy 09/30/17 1110 Rehab Evaluation [...] Rating Scale) Pain Level 2 Transfer Assessment/Treatment Armbrust (Sit-Stand Transfers) moderate assist (50% patient effort);2 person assist required Armbrust (Stand-Sit Transfers) moderate assist (50% patient effort);2 person assist required Olj-Ctgda-Bge Assistive Device (Transfers) rolling walker Armbrust (Toilet Transfers) moderate assist (50% patient effort);2 person assist required Assistive Device (Toilet Transfers) bedside commode;rolling walker Maintain Weight Bearing Status (Transfers) cues to maintain weight bearing status Safety Issues (Transfers) balance decreased during turns;sequencing ability decreased Impairments (Transfers) balance impaired;postural control impaired;strength decreased;vision impaired Comment (Transfers) stand step transfer to and from commode and w/c, frequent cues provided Gait Assessment/Treatment Armbrust (Gait) minimum assist (75% patient effort);2 person [...] all bed mobility activities Bed Mobility Goal, Armbrust Level moderate assist (50% patient effort) Bed Mobility Goal, Outcome Achieved goal ongoing Gait Training Goal Gait Training Goal, Date Established 09/09/17 Gait Training Goal, Time to Achieve by discharge Gait Training Goal, Armbrust Level minimum assist (75% patient effort) Gait Training Goal, Assist Device walker, rolling Gait Training Goal, Distance to Achieve 15 ft Gait Training Goal, Outcome goal ongoing Transfer Training Goal Transfer Training Goal, Date Established 09/09/17 Transfer Training Goal, Time to Achieve by discharge Transfer Training Goal, Activity Type llz-eb-lyatx/aalwj-eo-nae;mua-oz-gqcfy/zygkg-lj-cxb Transfer Train Goal, Armbrust Level minimum assist (75% patient effort) Transfer Training Goal, Assist Device walker, rolling Transfer Training Goal, Outcome goal ongoing Physical Therapy Goal PT Goal, Date Established 09/09/17 PT Goal, Time to Achieve by discharge PT Goal, Activity Type Pt will propel self in w/c household distances PT Goal, Armbrust Level set up required;supervision required PT Goal, Outcome goal ongoing Clinical Impression Therapy Frequency 2-4 times/wk Anticipated Equipment Needs at Discharge front wheeled walker Anticipated Discharge Disposition long-term facility (could go to handicap accesible long term with assistance) * Plan of Care - Skyler Aviles RN - 09/30/2017 4:07 AM EDT Problem: Patient Care Overview Goal: Plan of Care Review 09/29/17 1939 09/29/17 1891 Coping/Psychosocial Plan Of Care Reviewed With -- [...] -- Current Health Outpatient/Agency/Support Group Needs -- long term (specify) -- Anticipated Changes Related to Illness none -- -- Living Environment Transportation Available -- car (caregiver from long term) -- Activity/Self Care Review of Systems Equipment [...] all self care tasks Anticipated Discharge Disposition: long-term facility Pager: [phone] ZULMA Vargas 09/30/2017 Occupational Therapy Rehabilitation Department [...] Bearing Status left lower extremity Transfer Assessment/Treatment Armbrust (Sit-Stand Transfers) moderate assist (50% patient effort);2 person assist required Armbrust (Stand-Sit Transfers) moderate assist (50% patient effort);2 person assist required Chair-Bed Armbrust (Transfers) maximum assist (25% patient effort);2 person assist required Grooming Assessment/Training Position (Grooming) sitting (in chair at sink) Armbrust Level (Grooming) set up required;verbal cues required [...] -- Current Health Outpatient/Agency/Support Group Needs -- long term (specify) -- Anticipated Changes Related to Illness none -- -- Living Environment Transportation Available -- car (caregiver from long term) -- Activity/Self Care Review of Systems Equipment [...] -- Current Health Outpatient/Agency/Support Group Needs -- long term (specify) -- Anticipated Changes Related to Illness none -- -- Living Environment Transportation Available -- car (caregiver from long term) -- Activity/Self Care Review of Systems Equipment [...] -- Current Health Outpatient/Agency/Support Group Needs -- long term (specify) -- Anticipated Changes Related to Illness none -- -- Living Environment Transportation Available -- car (caregiver from long term) -- Activity/Self Care Review of Systems Equipment [...] -- Current Health Outpatient/Agency/Support Group Needs -- long term (specify) -- Anticipated Changes Related to Illness none -- -- Living Environment Transportation Available -- car (caregiver from long term) -- Activity/Self Care Review of Systems Equipment [...] and 2 assist LOUIS DORAN PTA Pager: [phone] Inpatient Physical Therapy 09/25/17 1214 Rehab Evaluation Document Type therapy note (daily [...] Assessment/Treatment Assistive Device (Bed Mobility) bed rails Hwoeer-qj-Dnx Armbrust (Bed Mobility) moderate assist (50% patient effort);2 person assist required Comment (Bed Mobility) Pt asleep initially, difficult to arouse, once assisted into seated positionpt able to hold himself up and became slightly more responsive Transfer Assessment/Treatment Bed-Chair Armbrust (Transfers) maximum assist (25% patient effort);2 person assist required Alz-Szmzh-Upq Assistive Device (Transfers) rolling walker Armbrust (Sit-Stand Transfers) moderate assist (50% patient effort);2 person assist required Armbrust (Stand-Sit Transfers) moderate assist (50% patient effort);2 person assist required Coy-Ksgbm-Hnl Assistive Device (Transfers) rolling walker Maintain Weight Bearing Status (Transfers) assist to maintain weight bearing status Impairments (Transfers) balance impaired;pain;strength decreased;vision impaired Comment (Transfers) Stand step transfer from bed to recliner chair, some weight bearing on L LE, ptpicked up walker once. Subsequent stands from recliner chair, pt able to maintain initial NWB to L LE Gait Assessment/Treatment Armbrust (Gait) moderate assist (50% patient effort);2 person [...] all bed mobility activities Bed Mobility Goal, Armbrust Level moderate assist (50% patient effort) Bed Mobility Goal, Outcome Achieved goal ongoing Gait Training Goal Gait Training Goal, Date Established 09/09/17 Gait Training Goal, Time to Achieve by discharge Gait Training Goal, Armbrust Level minimum assist (75% patient effort) Gait Training Goal, Assist Device walker, rolling Gait Training Goal, Distance to Achieve 15 ft Gait Training Goal, Outcome goal ongoing Transfer Training Goal Transfer Training Goal, Date Established 09/09/17 Transfer Training Goal, Time to Achieve by discharge Transfer Training Goal, Activity Type vkc-yi-gkxmi/mfeuo-ai-fqj;prv-px-dbmsr/izion-so-cwt Transfer Train Goal, Armbrust Level minimum assist (75% patient effort) Transfer Training Goal, Assist Device walker, rolling Transfer Training Goal, Outcome goal ongoing Physical Therapy Goal PT Goal, Date Established 09/09/17 PT Goal, Time to Achieve by discharge PT Goal, Activity Type Pt will propel self in w/c household distances PT Goal, Armbrust Level set up required;supervision required PT Goal, Outcome goal ongoing Clinical Impression Therapy Frequency 2-4 times/wk Anticipated Equipment Needs at Discharge front wheeled walker Anticipated Discharge Disposition long-term facility (could go to handicap accesible long term with assistance) * Plan of Care - [...] self care tasks Anticipated Discharge Disposition: (P) long-term facility Pager: [phone] ZULMA Vargas 09/24/2017 Occupational Therapy Rehabilitation Department [...] Assessment/Treatment Assistive Device (Bed Mobility) bed rails Sdafhm-ka-Fpg Armbrust (Bed Mobility) verbal cues required;contact guard assist Xls-ba-Bidllf Armbrust (Bed Mobility) verbal cues required;minimum assist (75% [...] Therapy Frequency 2-4 times/wk Anticipated Discharge Disposition long-term facility * Plan of Care - [place] [...] History: Procedure Laterality Date ??? PRO OPEN BOTTOM BLEACHER FIX ACETABULAR FX Left 09/04/2017 @OPEN TREATMENT, ACETABULAR FX (WRVU 25.41) performed by Amy Lance MD at [facility] Patient has following SCHEDULED [...] w/ PRN and scheduled medications, see MAR. [place] removed by ortho this AM, steri strips [...] -- Current Health Outpatient/Agency/Support Group Needs -- long term (specify) -- Anticipated Changes Related to Illness none -- -- Living Environment Transportation Available -- car (caregiver from long term) -- Activity/Self Care Review of Systems Equipment [...] -- Current Health Outpatient/Agency/Support Group Needs -- long term (specify) -- Anticipated Changes Related to Illness none -- -- Living Environment Transportation Available -- car (caregiver from long term) -- Activity/Self Care Review of Systems Equipment [...] Overview Goal: Plan of Care Review 09/19/17 6906 Coping/Psychosocial Plan Of Care Reviewed With patient [...] -- Current Health Outpatient/Agency/Support Group Needs -- long term (specify) -- Anticipated Changes Related to Illness none -- -- Living Environment Transportation Available -- car (caregiver from long term) -- Activity/Self Care Review of Systems Equipment Currently Used at Home -- none -- * Plan of Care - Lori Ordaz RN - 09/19/2017 5:52 PM EDT Problem: Patient Care Overview Goal: Plan of Care Review Outcome: Ongoing (Interventions Implemented as Appropriate) 09/19/17 7554 Coping/Psychosocial Plan Of Care Reviewed With patient [...] 09/04/17 86.6 kg (191 lb) Current bed: [facility] Assessment:Patient with no active pressure injury's at [...] pager or the wound care team at [phone] or pager [phone] withskin and wound care concerns or questions. [...] all self care tasks Anticipated Discharge Disposition: long-term facility Pager: [phone] ZULMA Vargas 09/20/2017 Occupational Therapy Rehabilitation Department [...] Assessment/Training Position (LB Dressing) sitting (in recliner) Armbrust Level (LB Dressing) verbal cues required;set up [...] FWW, 2 assist LOUIS DORAN PTA Pager: [phone] Inpatient Physical Therapy 09/19/17 1042 Rehab Evaluation Document Type therapy note (daily [...] Assessment/Treatment Assistive Device (Bed Mobility) bed rails Xemakx-fi-Hoo Armbrust (Bed Mobility) verbal cues required;supervision required Comment (Bed Mobility) extra time required, HOB elevated Transfer Assessment/Treatment Bed-Chair Armbrust (Transfers) minimum assist (75% patient effort);2 person assist required Chair-Bed Armbrust (Transfers) minimum assist (75% patient effort);2 person assist required Zjz-Rjdcl-Atq Assistive Device (Transfers) rolling walker Armbrust (Sit-Stand Transfers) minimum assist (75% patient effort);2 person assist required Armbrust (Stand-Sit Transfers) minimum assist (75% patient effort);2 person assist required Vru-Wblls-Wbl Assistive Device (Transfers) rolling walker Maintain Weight Bearing Status (Transfers) able to maintain weight bearing status Impairments (Transfers) balance impaired;pain;strength decreased;vision impaired Comment (Transfers) Step by step instructions and cues, pt held L LE above the ground with a flexedhip and knee position throughout transfer Gait Assessment/Treatment Armbrust (Gait) minimum assist (75% patient effort);2 person [...] all bed mobility activities Bed Mobility Goal, Armbrust Level moderate assist (50% patient effort) Bed Mobility Goal, Outcome Achieved goal ongoing Gait Training Goal Gait Training Goal, Date Established 09/09/17 Gait Training Goal, Time to Achieve by discharge Gait Training Goal, Armbrust Level minimum assist (75% patient effort) Gait Training Goal, Assist Device walker, rolling Gait Training Goal, Distance to Achieve 15 ft Gait Training Goal, Outcome goal ongoing Transfer Training Goal Transfer Training Goal, Date Established 09/09/17 Transfer Training Goal, Time to Achieve by discharge Transfer Training Goal, Activity Type lir-hz-ttzky/jtkbq-av-jbw Transfer Train Goal, Armbrust Level minimum assist (75% patient effort) Transfer Training Goal, Assist Device walker, rolling Transfer Training Goal, Outcome goal ongoing Physical Therapy Goal PT Goal, Date Established 09/09/17 PT Goal, Time to Achieve by discharge PT Goal, Activity Type Pt will propel self in w/c household distances PT Goal, Armbrust Level set up required;supervision required PT Goal, Outcome goal ongoing Clinical Impression Therapy Frequency 2-4 times/wk Anticipated Equipment Needs at Discharge front wheeled walker Anticipated Discharge Disposition long-term facility (could go to handicap accesible long term with assistance) * Plan of Care - [...] History: Procedure Laterality Date ??? PRO OPEN BOTTOM BLEACHER FIX ACETABULAR FX Left 09/04/2017 @OPEN TREATMENT, ACETABULAR FX (WRVU 25.41) performed by Amy Lance MD at [facility] Patient has following SCHEDULED [...] 30 days Current Health Outpatient/Agency/Support Group Needs long term (specify) Goal: Interdisciplinary Rounds/Family Conf Outcome: Ongoing [...] History: Procedure Laterality Date ??? PRO OPEN BOTTOM BLEACHER FIX ACETABULAR FX Left 09/04/2017 @OPEN TREATMENT, ACETABULAR FX (WRVU 25.41) performed by Amy Lance MD at [facility] Patient has following SCHEDULED [...] self care tasks Anticipated Discharge Disposition: (P) long-term facility Pager: [phone] ZULMA Vargas 09/17/2017 Occupational Therapy Rehabilitation Department [...] Level 3 Bed Mobility Assessment/Treatment Roll Left Armbrust (Bed Mobility) minimum assist (75% patient effort);nonverbal cues required (demo/gesture);verbal cues required Roll Right Armbrust (Bed Mobility) verbal cues required;nonverbal cues required (demo/gesture) ADL Assessment/Intervention Additional Documentation Grooming Assessment/Training (Group) Grooming Assessment/Training Position (Grooming) (supine in bed with HOB raised) Armbrust Level (Grooming) set up required;verbal cues required Impairments (Grooming) other (see comments) (cognative) Comment (Grooming) pt able to wash his face and stomach Plan of Care Review Plan Of Care Reviewed With patient Progress no change Clinical Impression Criteria for Skilled Therapeutic Interventions Met yes;treatment indicated Rehab Potential good, to achieve stated therapy goals Therapy Frequency 2-4 times/wk Anticipated Discharge Disposition long-term facility * Plan of Care - Lenore [...] History: Procedure Laterality Date ??? PRO OPEN BOTTOM BLEACHER FIX ACETABULAR FX Left 09/04/2017 @OPEN TREATMENT, ACETABULAR FX (WRVU 25.41) performed by Amy Lance MD at [facility] Patient has following SCHEDULED [...] Lance MD - 09/16/2017 10:24 AM EDT [facility] [place] Operative Note Patient Name: Miguel Angel Mason : [id number] MR#: [id number] Case Date: 09/04/2017 Surgeon: Surgeon(s) and Role: [...] and is otherwise quite independent in his long term prior to this injury. Furthermore, she did [...] -- -- Score -- -- -- OTHER Atwodo Fall Risk -- -- -- 09/15/17 2300 [...] patient Current Health Outpatient/Agency/Support Group Needs -- long term (specify) -- Anticipated Changes Related to Illness -- none -- Living Environment Transportation Available -- other (see comments) (member from long term can provide) -- Activity/Self Care Review of [...] Outcome: Ongoing (Interventions Implemented as Appropriate) 09/15/17 7638 Coping/Psychosocial Plan Of Care Reviewed With patient [...] Overview Goal: Plan of Care Review 09/14/17 9574 Coping/Psychosocial Plan Of Care Reviewed With patient [...] More Personalized Care? -- ISHAAN -- 09/13/17 1412 Individualization Patient Specific Preferences -- Patient Specific [...] -- Current Health Outpatient/Agency/Support Group Needs -- long term (specify) -- Anticipated Changes Related to Illness -- none -- Living Environment Transportation Available -- other (see comments) (member from long term can provide) -- Activity/Self Care Review of [...] Outcome: Ongoing (Interventions Implemented as Appropriate) 09/14/17 9292 Coping/Psychosocial Plan Of Care Reviewed With patient [...] applicable: [X] Yes - Bed alarm - Family/nurse care manager at bedside * Care Management - Eli Aragon RN - 09/14/2017 11:16 AM EDT Asked by previous CM to follow up on patient. Per review of chart, patient may be medically ready tomorrow. CM reviewed responses from referrals to [facility] as followed: [facility] [address], [place] [address] - DECLINED- Patient too complex and do not have any private male rooms. [facility] PHONE: [phone] FAX: [phone]- has received referral but has not responded. [facility] [place] [address] [place] [address] DECLINED- No appropriate bed to offer-concerns with behaviors as well. [facility] ([facility]) [address] [place] [address] Pt appears correction, likely not a candidate for S/T rehab at [facility]. We have no beds today, but willkeep referral open. Will ask Friday CM/RS to follow up with [facility] and [facility]. If no beds available, CM to follow up with sibling (as noted in chart) to expand search. Covering pager #[phone] for today. * Plan of Care - [...] screaming worsens with repositioning for incontinence care. 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 Haldol 2 mg po given [...] -- Current Health Outpatient/Agency/Support Group Needs -- long term (specify) -- Anticipated Changes Related to Illness -- none -- Living Environment Transportation Available -- other (see comments) (member from long term can provide) -- Activity/Self Care Review of [...] self care tasks Anticipated Discharge Disposition: (P) long-term facility Pager: [phone] ZULMA Vargas 09/13/2017 Occupational Therapy Rehabilitation Department [...] -- Current Health Outpatient/Agency/Support Group Needs -- long term (specify) -- Anticipated Changes Related to Illness -- none -- Living Environment Transportation Available -- other (see comments) (member from long term can provide) -- Activity/Self Care Review of [...] applicable: [X] Yes - Bed alarm - Family/nurse care manager at bedside * Plan of Care - [...] Patient/Family/Caregiver Comments/Observations What exercises can he do? 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 (yelling out off and on) General Observations [...] Assessment/Treatment Assistive Device (Bed Mobility) (HOB up) Ohninc-fv-Fuo Armbrust (Bed Mobility) verbal cues required;minimum assist (75% patient effort);2 person assist required Transfer Assessment/Treatment Bed-Chair Armbrust (Transfers) verbal cues required;minimum assist (75% patient effort);moderate assist (50% patient effort);2 person assist required Sil-Hvgud-Voq Assistive Device (Transfers) rolling walker Maintain Weight [...] Of Care Reviewed With patient;other (see comments) (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 from long term) Progress progress towards functional goals is fair Bed Mobility Goal Bed Mobility Goal, Activity Type all bed mobility activities Bed Mobility Goal, Armbrust Level moderate assist (50% patient effort) Bed Mobility Goal, Date Goal Reviewed 09/12/17 Bed Mobility Goal, Outcome Achieved goal ongoing Gait Training Goal Gait Training Goal, Armbrust Level minimum assist (75% patient effort) Gait Training Goal, Assist Device walker, rolling Gait Training Goal, Distance to Achieve 15 Gait Training Goal, Date Goal Reviewed 09/12/17 Gait Training Goal, Outcome goal ongoing Transfer Training Goal Transfer Training Goal, Time to Achieve by discharge Transfer Training Goal, Activity Type lfv-to-ekoml/sogjf-wd-pds Transfer Train Goal, Armbrust Level minimum assist (75% patient effort) Transfer Training Goal, Assist Device walker, rolling Transfer Train Goal, Date Goal Reviewed 09/12/17 Transfer Training Goal, Outcome goal ongoing Clinical Impression Rehab Potential fair, will monitor progress closely Therapy Frequency 2-4 times/wk Anticipated Equipment Needs at Discharge two wheeled walker Anticipated Discharge Disposition long-term facility;other (see comments) (could got to handicap accesible long term with assistance) Staff Mobility Recommendations Stand pivot bed <-> chair toward right LE with FWW and min - mod assist x 2 - needs min assist to maintain NWB LLE with sit -> stand ETELVINA SZYMANSKI, PT Pager: [phone] Inpatient Physical Therapy * Consult Note - Isabel Garcia RN - 09/12/2017 11:40 AM EST Certified Wound Care Nurse Rounding Note During rounding on unit, nurse expressed pt is able to be turned Q2 hours with out issue. Issues/concerns identified: No issues at this time per commercial pest control technician Recommendations: Refer to adult/pediatric pressure ulcer [...] sitting up in bed, having lunch with 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 from long term Pertinent History of Current Problem Pt is [...] Device (Bed Mobility) (HOB up) Roll Left Armbrust (Bed Mobility) minimum assist (75% patient effort);2 person assist required Roll Right Armbrust (Bed Mobility) verbal cues required;nonverbal cues required (demo/gesture);minimum assist (75% patient effort);2 person assist required Scoot/Bridge Armbrust (Bed Mobility) minimum assist (75% patient effort);2 person assist required Kgoapw-oy-Yfa Armbrust (Bed Mobility) verbal cues required;nonverbal cues required (demo/gesture);minimum assist (75% patient effort);2 person assist required Safety Issues (Bed Mobility) decreased use of legs for bridging/pushing Impairments (Bed Mobility) pain;ROM (range of motion) decreased Transfer Assessment/Treatment Bed-Chair Armbrust (Transfers) nonverbal cues required (demo/gesture);minimum assist (75% patient effort);moderate assist (50% patient effort);2 person assist required Kst-Rokgb-Qmm Assistive Device (Transfers) rolling walker Armbrust (Sit-Stand Transfers) minimum assist (75% patient effort);2 person assist required Maintain Weight Bearing Status (Transfers) assist to maintain weight bearing status Safety Issues (Transfers) weight-shifting ability decreased Impairments (Transfers) balance impaired;coordination impaired;pain;weight bearing status, unable to maintain Coping Observed Emotional State afraid/fearful;agitated Plan of Care Review Plan Of Care Reviewed With patient;other (see comments) (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) Progress progress towards functional goals is fair Bed Mobility Goal Bed Mobility Goal, Time to Achieve by discharge Bed Mobility Goal, Activity Type all bed mobility activities Bed Mobility Goal, Armbrust Level moderate assist (50% patient effort) Bed Mobility Goal, Date Goal Reviewed 09/11/17 Bed Mobility Goal, Outcome Achieved goal ongoing Gait Training Goal Gait Training Goal, Time to Achieve by discharge Gait Training Goal, Armbrust Level minimum assist (75% patient effort) Gait Training Goal, Assist Device walker, rolling Gait Training Goal, Distance to Achieve 15 Gait Training Goal, Outcome goal ongoing Transfer Training Goal Transfer Training Goal, Time to Achieve by discharge Transfer Training Goal, Activity Type rwk-pg-oobpp/zfchn-vp-mxu Transfer Train Goal, Armbrust Level minimum assist (75% patient effort) Transfer [...] setting of a possible seizure. PT Goal, Armbrust Level set up required;supervision required Clinical Impression Therapy Frequency 2-4 times/wk Anticipated Equipment Needs at Discharge front wheeled walker Anticipated Discharge Disposition long-term facility Staff Mobility Recommendations Assist x 2 for stand pivot transfer with FWW toward right - needs assist for NWBing with sit -> stand; does best when asked to count to 3 ETELVINA SZYMANSKI, PT Pager: [phone] Inpatient Physical Therapy * Plan of Care [...] near nurses station Surve[facility] Patient-specific fall prevention interventions for sensory deficits [...] -- Current Health Outpatient/Agency/Support Group Needs -- long term (specify) -- Anticipated Changes Related to Illness -- none -- Living Environment Transportation Available -- other (see comments) (member from long term can provide) -- Activity/Self Care Review of [...] -- Current Health Outpatient/Agency/Support Group Needs -- long term (specify) -- Anticipated Changes Related to Illness -- none -- Living Environment Transportation Available -- other (see comments) (member from long term can provide) -- Activity/Self Care Review of [...] at this time and morse replaced per HARNESS CUTTER orders. Pt also removed transverse abdominal dressing, RN replaced with gauze and tegaderm. PRN pain meds provided ATC, see MAR. Pt did not appear to get any relief. HARNESS CUTTER notified, one time dose of lorazepam ordered [...] to be independent enough to [facility]. Pt would benefit from ongoing physical therapy interventions. Staff Mobility Recommendations Would recommend bedrest until further PT/OT sessions Murtaza Bruce PT Pager: [phone] Inpatient Physical Therapy 2017 PT Evaluation Code [...] Living Environment Comment Pt lives in a long term with 3 other roomates. The solar energy installation manager of the long term reports that they have a caregiver there [...] a good distraction from patient. At the long term he tends to wear jenas with no [...] assess 2/2 cognition; however ptable to pickle solution maker leg volitionally and stand up w/ assist Mobility Assessment/Training Additional Documentation Bed Mobility Assessment/Treatment (Group);Transfer Assessment/Treatment (Group);Weight-Bearing Status (Group) Weight-Bearing Status Extremity Weight Bearing Status left lower extremity Bed Mobility Assessment/Treatment Assistive Device (Bed Mobility) (elevated HOB) Scoot/Bridge Armbrust (Bed Mobility) minimum assist (75% patient effort) Qespct-xq-Oex Armbrust (Bed Mobility) minimum assist (75% patient effort);2 person assist required Nza-uu-Zcnpgi Armbrust (Bed Mobility) minimum assist (75% patient effort);2 person assist required Impairments (Bed Mobility) coordination impaired;pain;ROM (range of motion) decreased;strength decreased Comment (Bed Mobility) pt able to initiate movements in bed; limited by pain; distraction techniqueof chewing gum worked well Transfer Assessment/Treatment Armbrust (Sit-Stand Transfers) minimum assist (75% patient effort);2 person assist required;verbal cues required Armbrust (Stand-Sit Transfers) minimum assist (75% patient effort);2 person assist required;verbal cues required Skf-Faetp-Cjl Assistive Device (Transfers) rolling walker Maintain Weight [...] normal balance Sitting Balance: Dynamic good balance Ebf-nm-Hpyeo Balance fair balance Standing Balance: Static fair [...] all bed mobility activities Bed Mobility Goal, Armbrust Level moderate assist (50% patient effort) Gait Training Goal Gait Training Goal, Date Established 09/09/17 Gait Training Goal, Time to Achieve by discharge Gait Training Goal, Armbrust Level minimum assist (75% patient effort) Gait Training Goal, Assist Device walker, rolling Gait Training Goal, Distance to Achieve 15' Transfer Training Goal Transfer Training Goal, Date Established 09/09/17 Transfer Training Goal, Time to Achieve by discharge Transfer Training Goal, Activity Type eey-tv-thcyf/ezsuy-hs-kus;lwc-xs-xivvy/llbuy-et-hnk Transfer Train Goal, Armbrust Level minimum assist (75% patient effort) Transfer Training Goal, Assist Device walker, rolling Physical Therapy Goal PT Goal, Date Established 09/09/17 PT Goal, Time to Achieve by discharge PT Goal, Activity Type Pt will propel self in w/c household distances PT Goal, Armbrust Level set up required;conditional independence Clinical Impression Rehab Potential fair, will monitor progress closely Therapy Frequency 2-4 times/wk Anticipated Equipment Needs at Discharge (TBD at rehab ) Anticipated Discharge Disposition long-term facility General Interventions Additional Documentation Planned Therapy [...] Given the set up of h is long term, anticipate a need for rehab. Staff Recommendations/Things [...] sometimes rips shirts off. Anticipated Discharge Disposition: long-term facility Pager: [phone] SKYLA AYALA OT 09/09/2017 Occupational Therapy Rehabilitation [...] and measurable assessment of functional outcome. 09/09/17 1685 Rehab Evaluation Document Type evaluation Total Evaluation [...] Living Environment Comment Pt lives in a long term with 3 other roomates. The solar energy installation manager of the long term reports that they have a caregiver there [...] a good distraction for patient. At the long term he tends to wear jeans with no [...] UE slightly weak than R, but good line o scribe operator on R Weight-Bearing Status Extremity Weight Bearing Status left lower extremity Bed Mobility Assessment/Treatment Assistive Device (Bed Mobility) (HOB raised) Scoot/Bridge Armbrust (Bed Mobility) minimum assist (75% patient effort) Txiuso-mp-Zel Armbrust (Bed Mobility) minimum assist (75% patient effort);2 person assist required;verbal cues required (verbal/tactile cues) Fzn-uo-Vqacee Armbrust (Bed Mobility) minimum assist (75% patient effort);2 person assist required Impairments (Bed Mobility) pain;strength decreased;coordination impaired;ROM (range of motion) decreased;other (see comments) (mental status) Comment (Bed Mobility) Pt relutant to sit initially 2' pain. Gave gum as likes to chew on things for a coping mechanism. Transfer Assessment/Treatment Armbrust (Sit-Stand Transfers) minimum assist (75% patient effort);2 person assist required;verbal cues required (tactile cues) Armbrust (Stand-Sit Transfers) minimum assist (75% patient effort);2 person assist required;verbal cues required Aha-Belns-Xjr Assistive Device (Transfers) rolling walker Maintain Weight Bearing Status (Transfers) assist to maintain weight bearing status;cues to maintain weight bearing status Impairments (Transfers) balance impaired;pain;coordination impaired;ROM (range of motion) decreased;strength decreased;other (see comments) (mental status ) Lower Body Dressing Assessment/Training Position (LB Dressing) sitting Armbrust Level (LB Dressing) dependent (less than 25% patient effort) Impairments (LB Dressing) balance impaired;coordination impaired;pain;strength decreased (mental status) Comment (LB Dressing) for socks Toileting Assessment/Training Position (Toileting) supported sitting Armbrust Level (Toileting) dependent (less than 25% patient effort) Impairments (Toileting) pain;coordination impaired;strength decreased (poor initation, awareness, decreased mobility ) Comment (Toileting) has catheter and wearing depends. Gave Pt gum as Pt was trying to chew his diaper. Balance Skills Training Training Strategies (Balance) seated eob Sitting Balance: Static normal balance Sitting Balance: Dynamic good balance Ejj-ni-Hjiql Balance fair balance Standing Balance: Static fair [...] wheelchair, commode, shower seat) Anticipated Discharge Disposition long-term facility General Therapy Interventions Planned Therapy Interventions [...] Surveillance [continuous indirect monitoring]: Jeet, purposedamion rounding, ostomy care nurse at bedside, hourly safety checks. Patient-specific fall [...] patient Current Health Outpatient/Agency/Support Group Needs -- long term (specify) Anticipated Changes Related to Illness -- none Living Environment Transportation Available -- other (see comments) (member from long term can provide) Activity/Self Care Review of Systems [...] Current Decision-Making Capacity: sister Bettina Mason (Sibling) [address] [facility] [id number] (H)- ?? Advance Care Planning: not on file Current Coping/Education/Information Needs: Coping well per care givers ?? Current Functional Ability: has not had PT yet per care givers ?? Functional Status Prior to Admission: lives in long term setting on 2nd level able to ascend stairs, showers self with stand by assist r/t blindness per care givers, non communicative however the care givers seem able to understand at least some of pt's attempts of communication. ?? [place] [facility] [place] Social & Family Supports/Community Resources: Extended Emergency Contact Information Primary Emergency Contact: IsabellaBettina [address]: [address] [place] [id number] [place] [address] Relation: Sibling ?? Behavioral Health History: NA ?? Substance Use/Abuse: NA ?? Other Pertinent/Service Specific Information: unlikely be able to return to long term immediately ?? Health/Prescription Coverage: Primary Insurance: Payor: [place] / Plan: [place] / Product Type: *No Product type* / Secondary Insurance: Prescription Coverage: see above Preferred Pharmacy: No Pharmacies Listed Other: None ?? Primary Care Provider: NAKIA Cifuentes [phone] ?? Patient/Caregiver Goals of Treatment: Safe discharge ? Potential Needs for Transition of Care: Rehab/SNF: TBD Home Health: no DME: no Dialysis: No Community Resources: No Transportation: ambulance Other: None ?? Anticipated Barriers to Discharge/Special Considerations: None ?? Plan: Per discussion with care givers pt may be near facilities such as [facility] and [facility] in [place]. CM will need to connect with sister for choices ?? A member of the Care Management team will continue to monitor progress, follow for continuity of care and assist with transition of care planning. ?? CHAVEZ KELSEY RN Pager: [phone] ? * Plan of Care - Josefina [...] patient Current Health Outpatient/Agency/Support Group Needs -- long term (specify) Anticipated Changes Related to Illness -- none Living Environment Transportation Available -- other (see comments) (member from long term can provide) Activity/Self Care Review of Systems [...] patient Current Health Outpatient/Agency/Support Group Needs -- long term (specify) Anticipated Changes Related to Illness -- none Living Environment Transportation Available -- other (see comments) (member from long term can provide) Activity/Self Care Review of Systems [...] urine collection started at 5am this morning. Mosre draining CYU. Pt repositioned in bed q2. [...] discomfort. Resting comfortably in between care with forge shop machine repairer at bedside. Repositioned frequently to prevent skin [...] Patient greeted and reason for visit stated. companion caregiver at bedside. RN at bedside, patient [...] Please contact Isabel Garcia RN on pager [phone] or the wound care team at [phone] or pager [phone] skin and wound care concerns or questions. [...] HR was tachy for most of shift, HARNESS CUTTER paged and EKG ordered. IV metoprolol given x2 for HR in 140s, but pt sustained in 120s for most of shift. Phosphorus and Magnesiumordered with AM labs, phos critical at 1.1, HARNESS CUTTER notified. IV K phosphate ordered. 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 CT showed an acute left acetabular fracture and osteopenia, he was given morphine, dilaudid and ativan for pain and sedation and was transferred here. Na at [facility] 132. VS here, tachycardic up to [...] couple of years. 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 Niles Tillman. I reviewed the santos portions of the history and physical exam, and reviewed pertinent lab data. I answered all patient questions. I was involved in all medical decision making and agree with this plan. GENEVIEVE PAGE MD Vice President Of [employer] plater Section of Endocrinology [facility] * Consult Note - David [...] acetabular fracture. The patient lives in a long term at baseline. 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 He presented to [place] from where he was transferred here for surgery. He was given ativan to prevent further seizures as well as dilaudid for pain. The patient has a history of seizures. He last had a similar seizure 4 years ago. He is on zonisamide 100 mg at bedtime which he has been taking daily without issues. In the past he had more frequentseizures between [id number]. His sister is unsure of what types of seizures, she does not think he had GTC in the past. He has no known history of status epilepticus. He has had imaging in the past, EEG but his sister is unsure of the results. He has a neurologist in [place], [place]. At his baseline state, he has [...] no use Living situation: lives in a long term, has people who help with most ADL [...] file Social History Narrative Lives at the [facility], moved in 11/07/2014. Review of systems: Constitutional: [...] L Elbow flexion 5/5 R, 5/5 L Promotions Associate LE: 5/5 R, [place] L Hip flexion [...] testing Moisés Orr MD PGY-3 Neurology Pager [phone] Neurology Attending I saw and evaluated the [...] status David Phillips [place] [address] Pager #[phone] Email: [email or web address] [place] Plan of Care - Marisabel Cunningham [...] in a van. He lives in a long term. At baseline he ambulates without assistive devices. He is accompanied by his sister and her friend. His sister is his DPOA. She says he went in the long term van today. After the ride he was moaning in pain. They took him to [facility] where imaging revealed a left acetabular fracture. Both her and the long term feel that he had a seizure on [...] evaluation and treatment. Please call Ortho resident tar and ammonia pump operator with any questions or concerns. * ED [...] T wave inversion in EKG [facility]ARDIAC [facility]ZYMES ([facility]) Routine 03/02/2018 6:26 AM EDT [...] 02/28/2018 4: 20 PM EDT CARDIAC ENZYMES ([facility]) Routine 02/28/2018 4:20 PM EDT [...] IMPLANTABLE DEVICES SCAN 09/04/2017 12:00 AM EST MANAGER OF IT SCAN 09/04/2017 12:00 AM EST URINALYSIS WITH [...] EDT) Glucose 90 65 - 199 mg/dL [facility] Comment:Diabetes: >=200 mg/d L plus symptoms Blood Urea Nitrogen 11 10 - 20 mg/dL [facility] Creatinine 0.70(L) 0.80 - 1.50 mg/dL [facility] [...] questions. Chloride 100 98 - 107 mmol/L [facility] Carbon Dioxide 24 22 - 31 mmol/L [facility] Anion Gap 14 5 - 15 mmol/L [facility] Calcium 8.7 8.5 - 10.5 mg/dL [facility] Est Glomerular Filtration Rate 129 >=60 mL/min/1. 73 m?? [facility] Comment: The eGFR was calculated using the CKD-EPI equation. As with all creatinine based estimates of kidney function, eGFR values calculated with the CKD-EPI equation are not accurate in patients with acute kidney failure, extremes of body mass or the acutely ill. [email or web address]/[facility]kf eGFR 150 >=60 mL/min/1. 73 m?? [facility] Comment: The eGFR was calculated using the CKD-EPI equation. As with all creatinine based estimates of kidney function, eGFR values calculated with the CKD-EPI equation are not accurate in patients with acute kidney failure, extremes of body mass or the acutely ill. [email or web address]/[facility]kf Blood specimen (specimen) 03/10/2018 1:48 PM EDT 03/10/2018 2:05 PM EDT Narrative Resulting Agency Comment Spec In Lab Gabriella Maher MD CHEMISTRY ORDERABLES [facility] [place] [address] * (ABNORMAL) Basic Metabolic Panel (non-fasting) (03/09/2018 8:46 AM EDT) Glucose 97 65 - 199 mg/dL [facility] Comment:Diabetes: >=200 mg/d L plus symptoms Blood Urea Nitrogen 9(L) 10 - 20 mg/dL [facility] Creatinine 0.68(L) 0.80 - 1.50 mg/dL [facility] Sodium 133(L) 135 - 145 mmol/L [facility] Potassium 3.7 3.5 - 5.0 mmol/L [facility] Comment: Please note: ??Patients with WBC >100,000 may have falsely elevated Potassium levels. ??For accurate Potassium quantification in these patients send serum separator tube (gold top) for subsequent determinations. ??Contact the Clinical Chemistry Laboratory if there are any questions. Chloride 98 98 - 107 mmol/L [facility] Carbon Dioxide 22 22 - 31 mmol/L [facility] Anion Gap 13 5 - 15 mmol/L [facility] Calcium 9.0 8.5 - 10.5 mg/dL [facility] Est Glomerular Filtration Rate 131 >=60 mL/min/1. 73 m?? [facility] Comment: The eGFR was calculated using the CKD-EPI equation. As with all creatinine based estimates of kidney function, eGFR values calculated with the CKD-EPI equation are not accurate in patients with acute kidney failure, extremes of body mass or the acutely ill. [email or web address] eGFR 152 >=60 mL/min/1. 73 m?? [facility] Comment: The eGFR was calculated using the CKD-EPI equation. As with all creatinine based estimates of kidney function, eGFR values calculated with the CKD-EPI equation are not accurate in patients with acute kidney failure, extremes of body mass or the acutely ill. [email or web address] Blood specimen (specimen) 03/09/2018 8:46 AM EDT 03/09/2018 9:15 AM EDT Narrative Resulting Agency Comment Spec In Lab Gabriella Maher MD CHEMISTRY ORDERABLES [facility] [place] [address] * (ABNORMAL) Basic Metabolic Panel (non-fasting) (03/08/2018 6:19 AM EDT) Glucose 107 65 - 199 mg/dL [facility] Comment:Diabetes: >=200 mg/d L plus symptoms Blood Urea Nitrogen 16 10 - 20 mg/dL [facility] Creatinine 0.72(L) 0.80 - 1.50 mg/dL [facility] Sodium 133(L) 135 - 145 mmol/L [facility] Potassium 3.5 3.5 - 5.0 mmol/L [facility] Comment: Please note: ??Patients with WBC >100,000 may have falsely elevated Potassium levels. ??For accurate Potassium quantification in these patients send serum separator tube (gold top) for subsequent determinations. ??Contact the Clinical Chemistry Laboratory if there are any questions. Chloride 97(L) 98 - 107 mmol/L [facility] Carbon Dioxide 21(L) 22 - 31 mmol/L [facility] Anion Gap 15 5 - 15 mmol/L [facility] Calcium 9.0 8.5 - 10.5 mg/dL [facility] Est Glomerular Filtration Rate 128 >=60 mL/min/1. 73 m?? [facility] Comment: The eGFR was calculated using the CKD-EPI equation. As with all creatinine based estimates of kidney function, eGFR values calculated with the CKD-EPI equation are not accurate in patients with acute kidney failure, extremes of body mass or the acutely ill. [email or web address] eGFR 148 >=60 mL/min/1. 73 m?? [facility] Comment: The eGFR was calculated using the CKD-EPI equation. As with all creatinine based estimates of kidney function, eGFR values calculated with the CKD-EPI equation are not accurate in patients with acute kidney failure, extremes of body mass or the acutely ill. [email or web address] Blood specimen (specimen) 03/08/2018 6:19 AM EDT 03/08/2018 6:34 AM EDT Narrative Resulting Agency Comment Spec In Lab Gabriella Maher MD CHEMISTRY ORDERABLES [facility] [place] [address] * (ABNORMAL) Basic Metabolic Panel (non-fasting) (03/07/2018 5:23 PM EDT) Glucose 99 65 - 199 mg/dL [facility] Comment:Diabetes: >=200 mg/d L plus symptoms Blood Urea Nitrogen 15 10 - 20 mg/dL [facility] Creatinine 0.72(L) 0.80 - 1.50 mg/dL [facility] Sodium 135 135 - 145 mmol/L [facility] Comment:result rechecked-RG Potassium 3.5 3.5 - 5.0 mmol/L [facility] Comment: Please note: ??Patients with WBC >100,000 may have falsely elevated Potassium levels. ??For accurate Potassium quantification in these patients send serum separator tube (gold top) for subsequent determinations. ??Contact the Clinical Chemistry Laboratory if there are any questions. Chloride 98 98 - 107 mmol/L [facility] Carbon Dioxide 22 22 - 31 mmol/L [facility] Anion Gap 15 5 - 15 mmol/L [facility] Calcium 8.9 8.5 - 10.5 mg/dL [facility] Est Glomerular Filtration Rate 128 >=60 mL/min/1. 73 m?? [facility] Comment: The eGFR was calculated using the CKD-EPI equation. As with all creatinine based estimates of kidney function, eGFR values calculated with the CKD-EPI equation are not accurate in patients with acute kidney failure, extremes of body mass or the acutely ill. [email or web address] eGFR 148 >=60 mL/min/1. 73 m?? [facility] Comment: The eGFR was calculated using the CKD-EPI equation. As with all creatinine based estimates of kidney function, eGFR values calculated with the CKD-EPI equation are not accurate in patients with acute kidney failure, extremes of body mass or the acutely ill. [email or web address] Blood specimen (specimen) 03/07/2018 5:23 PM EDT 03/07/2018 5:29 PM EDT Narrative Resulting Agency Comment Spec In Lab Gabriella Maher MD CHEMISTRY ORDERABLES [facility] [place] [address] * Basic Metabolic Panel (non-fasting) (03/05/2018 2:19 PM EDT) Glucose 186 65 - 199 mg/dL [facility] Comment:Diabetes: >=200 mg/d L plus symptoms Blood Urea Nitrogen 14 10 - 20 mg/dL [facility] Creatinine 0.81 0.80 - 1.50 mg/dL [facility] Sodium 144 135 - 145 mmol/L [facility] Potassium 3.6 3.5 - 5.0 mmol/L [facility] Comment: Please note: ??Patients with WBC >100,000 may have falsely elevated Potassium levels. ??For accurate Potassium quantification in these patients send serum separator tube (gold top) for subsequent determinations. ??Contact the Clinical Chemistry Laboratory if there are any questions. Chloride 106 98 - 107 mmol/L [facility] Carbon Dioxide 24 22 - 31 mmol/L [facility] Anion Gap 14 5 - 15 mmol/L [facility] Calcium 9.1 8.5 - 10.5 mg/dL [facility] Est Glomerular Filtration Rate 122 >=60 mL/min/1. 73 m?? [facility] Comment: The eGFR was calculated using the CKD-EPI equation. As with all creatinine based estimates of kidney function, eGFR values calculated with the CKD-EPI equation are not accurate in patients with acute kidney failure, extremes of body mass or the acutely ill. [email or web address]://SeeWhy/[facility]kf eGFR 141 >=60 mL/min/1. 73 m?? [facility] Comment: The eGFR was calculated using the CKD-EPI equation. As with all creatinine based estimates of kidney function, eGFR values calculated with the CKD-EPI equation are not accurate in patients with acute kidney failure, extremes of body mass or the acutely ill. [email or web address]/[facility]kf Blood specimen (specimen) 03/05/2018 2:19 PM EDT 03/05/2018 2:25 PM EDT Narrative Resulting Agency Comment Spec In Lab Reba Linton MD CHEMISTRY ORDERA BLES [facility] [place] [address] * (ABNORMAL) Basic Metabolic Panel (non-fasting) (03/04/2018 7:53 AM EDT) Glucose 92 65 - 199 mg/dL [facility] Comment:Diabetes: >=200 mg/d L plus symptoms Blood Urea Nitrogen 15 10 - 20 mg/dL [facility] Creatinine 0.75(L) 0.80 - 1.50 mg/dL [facility] Sodium 148(H) 135 - 145 mmol/L [facility] Potassium 3.5 3.5 - 5.0 mmol/L [facility] Comment: Please note: ??Patients with WBC >100,000 may have falsely elevated Potassium levels. ??For accurate Potassium quantification in these patients send serum separator tube (gold top) for subsequent determinations. ??Contact the Clinical Chemistry Laboratory if there are any questions. Chloride 109(H) 98 - 107 mmol/L [facility] Carbon Dioxide 25 22 - 31 mmol/L [facility] Anion Gap 14 5 - 15 mmol/L [facility] Calcium 9.8 8.5 - 10.5 mg/dL [facility] Est Glomerular Filtration Rate 126 >=60 mL/min/1. 73 m?? [facility] Comment: The eGFR was calculated using the CKD-EPI equation. As with all creatinine based estimates of kidney function, eGFR values calculated with the CKD-EPI equation are not accurate in patients with acute kidney failure, extremes of body mass or the acutely ill. http://SeeWhy/[facility]kf eGFR 146 >=60 mL/min/1. 73 m?? [facility] Comment: The eGFR was calculated using the CKD-EPI equation. As with all creatinine based estimates of kidney function, eGFR values calculated with the CKD-EPI equation are not accurate in patients with acute kidney failure, extremes of body mass or the acutely ill. [email or web address]://SeeWhy/[facility]kf Blood specimen (specimen) 03/04/2018 7:53 AM EDT 03/04/2018 8:03 AM EDT Narrative Resulting Agency Comment Spec In Lab Reba Linton MD CHEMISTRY ORDERA BLES [facility] [place] [address] * (ABNORMAL) Basic Metabolic Panel (non-fasting) (03/03/2018 12:47 PM EDT) Glucose 260(H) 65 - 199 mg/dL [facility] Comment:Diabetes: >=200 mg/d L plus symptoms Blood Urea Nitrogen 14 10 - 20 mg/dL [facility] Creatinine 0.81 0.80 - 1.50 mg/dL [facility] Sodium 150(H) 135 - 145 mmol/L [facility] Potassium 4.3 3.5 - 5.0 mmol/L [facility] Comment: Please note: ??Patients with WBC >100,000 may have falsely elevated Potassium levels. ??For accurate Potassium quantification in these patients send serum separator tube (gold top) for subsequent determinations. ??Contact the Clinical Chemistry Laboratory if there are any questions. Chloride 114(H) 98 - 107 mmol/L [facility] Carbon Dioxide 22 22 - 31 mmol/L [facility] Anion Gap 14 5 - 15 mmol/L [facility] Calcium 9.6 8.5 - 10.5 mg/dL [facility] Est Glomerular Filtration Rate 122 >=60 mL/min/1. 73 m?? [facility] Comment: The eGFR was calculated using the CKD-EPI equation. As with all creatinine based estimates of kidney function, eGFR values calculated with the CKD-EPI equation are not accurate in patients with acute kidney failure, extremes of body mass or the acutely ill. [email or web address] eGFR 141 >=60 mL/min/1. 73 m?? [facility] Comment: The eGFR was calculated using the CKD-EPI equation. As with all creatinine based estimates of kidney function, eGFR values calculated with the CKD-EPI equation are not accurate in patients with acute kidney failure, extremes of body mass or the acutely ill. [email or web address] Blood specimen (specimen) 03/03/2018 12:47 PM EDT 03/03/2018 1:16 PM EDT Narrative Resulting Agency Comment Spec In Lab Reba Linton MD CHEMISTRY ORDERA OLIVIA [facility] [place] [address] * ECHO COMPLETE (03/02/2018 1:08 PM EDT) EF 65 HEARTLAB SYSTEM Anatomical Region Laterality Modality Other 03/02/2018 Narrative 03/02/2018 1:32 PM EDT Procedure: ?Transthoracic Echocardiogram Patient: ?SIABELLA CARRASCO Judy ?(Age): 1990(27y) Med Rec#: ? [id number] ?Sex: ?M ? Site Loc: ? [facility] ?Ht / Wt: ??177(cm)/99(kg) Pt. Loc: ?Adult Floor ? BSA: ?2.16 Study Date: ?? 03/02/2018 ?Pt. Type: Inpatient Tape: ? Referring: Reba Linton Referring: HONORIO Reading: Drew Driscoll ([id number]) Chemical Plant Manager: Noel Ash Diagnosis: *Abnormal electrocardiogram [ECG] [EKG] [...] E-wave Vmax ?0.7 ?m/sec ? MV deceleration [id number] ?msec ? MV A-wave Vmax ?0.5 ?m/sec [...] ? Mid-Inferior ?Normal ? Mid-Inferoseptal ?Normal ? [place]-Septal ? Normal ? [place]-Anterior ? Normal ? [place]-Lateral ?Normal ? [place]-Inferior ? Normal ? [place]-Tip ?Normal ? This report has been electronically signed by: Drew Driscoll MD ? 03/02/2018 13:32:27 Images reviewed and interpretation verified [facility] Cardiac Ultrasound Laboratory Procedure Note Drew Driscoll MD - 03/02/2018 Procedure: Transthoracic Echocardiogram Patient: ISABELLA ARZATE(Age): 1990(27y) Med Rec#: [id number] Sex: M Site Loc: [facility] Ht / Wt: 177(cm)/99(kg) Pt. Loc: Adult Floor BSA: 2.16 Study Date: 03/02/2018 Pt. Type: Inpatient Tape: Referring: Reba Linton Referring: HONORIO Reading: Drew Driscoll ([id number]) Chemical Plant Manager: Noel Ash Diagnosis: *Abnormal electrocardiogram [ECG] [EKG] [...] MV E-wave Vmax 0.7 m/sec MV deceleration [id number] msec MV A-wave Vmax 0.5 m/sec MV [...] Normal Mid-Posterolateral Normal Mid-Inferior Normal Mid-Inferoseptal Normal [place]-Septal Normal [place]-Anterior Normal [place]-Lateral Normal [place]-Inferior Normal [place]-Tip Normal This report has been electronically signed by: Drew Driscoll MD 03/02/2018 13:32:27 Images reviewed and interpretation verified [facility] Cardiac Ultrasound Laboratory Reba Linton MD ECHO ORDERABLES * (ABNORMAL) Basic Metabolic Panel (non-fasting) (03/02/2018 6:26 AM EDT) Glucose 102 65 - 199 mg/dL [facility] Comment:Diabetes: >=200 mg/d L plus symptoms Blood Urea Nitrogen 17 10 - 20 mg/dL [facility] Creatinine 0.64(L) 0.80 - 1.50 mg/dL [facility] Comment:Specimen ultracentri fuged due to gross lipemia Sodium 145 135 - 145 mmol/L [facility] Potassium 3.5 3.5 - 5.0 mmol/L [facility] Comment: Please note: ??Patients with WBC >100,000 may have falsely elevated Potassium levels. ??For accurate Potassium quantification in these patients send serum separator tube (gold top) for subsequent determinations. ??Contact the Clinical Chemistry Laboratory if there are any questions. Chloride 109(H) 98 - 107 mmol/L [facility] Carbon Dioxide 23 22 - 31 mmol/L [facility] Anion Gap 13 5 - 15 mmol/L [facility] Calcium 9.5 8.5 - 10.5 mg/dL [facility] Est Glomerular Filtration Rate 134 >=60 mL/min/1. 73 m?? [facility] Comment: The eGFR was calculated using the CKD-EPI equation. As with all creatinine based estimates of kidney function, eGFR values calculated with the CKD-EPI equation are not accurate in patients with acute kidney failure, extremes of body mass or the acutely ill. [email or web address] eGFR 156 >=60 mL/min/1. 73 m?? [facility] Comment: The eGFR was calculated using the CKD-EPI equation. As with all creatinine based estimates of kidney function, eGFR values calculated with the CKD-EPI equation are not accurate in patients with acute kidney failure, extremes of body mass or the acutely ill. [email or web address] Blood specimen (specimen) 03/02/2018 6:26 AM EDT 03/02/2018 6:42 AM EDT Narrative Resulting Agency Comment Spec In Lab Reba Linton MD CHEMISTRY ORDERA [facility] [place] [address] * Cardiac Enzymes (LEB/CGP) (03/02/2018 6:26 AM EDT) Troponin-T <0.01 0.00 - 0.00 ng/mL [facility] Comment: The 99th percentile for Troponin T is less than 0.01 ng/mL, any detectable cTnT concentration using this assay should be considered elevated. According to the third universal definition of myocardial infarction the following criteria with a clinical presentation consistent with acute myocardial ischemia meets the diagnosis for a myocardial infarction (CT). Detection of a rise and/or fall of cTnT, with at least one value greater than the 99th percentile (> or = 0.01) and with at least one of the following ?? Symptoms of ischemia ?? New or presumed new significant NV-[id number] wave (ST-T) changes or new left bundle [...] additional sample may be indicated. Reference: Third [place] Definition of Myocardial Infarction. Journal of the [place] [employer] 2012;60:1581-98 Creatine Kinase 45 0 - 200 unit/L [facility] Blood specimen (specimen) 03/02/2018 6:26 AM EDT 03/02/2018 6:41 AM EDT Narrative Resulting Agency Comment Spec In Lab Reba Linton MD CHEMISTRY ORDERA BLES Performing Organization Address [facility]/ZIP Co de Phone Number [facility] [place] [address] * EKG 12 Lead (03/01/2018 9:20 AM EDT) Ventricular rate 98 BPM MUSE SYSTEM Atrial Rate 98 BPM MUSE SYSTEM P-R Interval 146 ms MUSE SYSTEM QRS Duration 102 ms MUSE SYSTEM Q-T Interval 350 ms MUSE SYSTEM QTC Calculated (Bezet) 446 ms MUSE SYSTEM Calculated P [place] 26 degrees MUSE SYSTEM Calculated R [place] 62 degrees MUSE SYSTEM Calculated T [place] 40 degrees MUSE SYSTEM INTERPRETATION Normal sinus rhythm T wave abnormality, consider lateral ischemia Abnormal ECG When compared with ECG of 28-FEB-2018 11:26, No significant change was found Confirmed by MD Hernandez, Sacha ([id number]) on 03/01/2018 11:01:50 AM MUSE SYSTEM 03/01/2018 9:20 AM EDT 03/01/2018 11:01 AM EDT Reba Linton MD ECG ORDERABLES Performing Organization Address [facility]/ZIP Co de Phone Number MUSE SYSTEM * LDL Cholesterol, Direct (03/01/2018 8:35 AM EDT) LDL Cholesterol, Direct 31 mg/dL [facility] Comment: Lowest Risk: <100 mg/dL Lower Risk: 100-129 mg/dL Borderline High Risk: 130-159 mg/dL High Risk: 160-189 mg/dL Very High Risk: >sj=317 mg/dL Blood specimen (specimen) 03/01/2018 8:35 AM EDT 03/01/2018 8:48 AM EDT Narrative Resulting Agency Comment Spec In Lab Reba Linton MD CHEMISTRY ORDERA BLES [facility] [place] [address] * Differential, Automated (03/01/2018 8:35 AM EDT) Pathologist [facility] Neutrophil % 39.2 % [facility] Neutrophil Absolute 2.12 1.70 - 6.10 x10(3)/[facility] Lymph % 45.9 % [facility] Lymphocytes Abs 2.5 0.9 - 3.2 x10(3)/[facility] Monocyte % 10.3 % [facility] Monocyte Abs 0.6 0.3 - 0.9 x10(3)/[facility] Eos % 3.3 % [facility] Eosinophils Abs 0.2 0.0 - 0.4 x10(3)/[facility] Basophil % 0.7 % [facility] Baso Absolute 0.0 0.0 - 0.1 x10(3)/[facility] Immature Gran % 0.60 % [facility] Comment: Immature granulocytes(IG's)percentage and absolute count will include metamyelocytes, myelocytes, and promyelocytes. Blood smears from CBCs yielding IG's will be scanned manually for concordance. If this scan disagrees with the automated IG or if promyelocytes are noted, a manual differential will be performed. Immature Gran Absolute 0.03 0.00 - 0.04 x10(3)/[facility] Blood specimen (specimen) 03/01/2018 8:35 AM EDT 03/01/2018 8:43 AM EDT Narrative Resulting Agency Comment Spec In Lab Reba Linton MD HEMATOLOGY ORDER LYNDSEY [facility] [place] [address] * (ABNORMAL) Hemogram (03/01/2018 8:35 AM EDT) White Blood Cell 5.4 4.0 - 9.5 x10(3)/[facility] Red Blood Cell 4.89 4.58 - 5.54 x10(6)/[facility] Hemoglobin 11.9(L) 13.7 - 16.5 gm/dL [facility] Hematocrit 36.7(L) 40.5 - 48.5 % [facility] Mean Cell Volume 75.1(L) 82.9 - 93.1 [facility] Mean Cell Hemoglobin 24.3(L) 27.5 - 32.1 pg [facility] Mean Cell Hemoglobin Concentration 32.4 32.0 - 35.7 gm/dL [facility] Platelet 272 145 - 357 x10(3)/[facility] RDW Standard Deviation 47.2(H) 36.0 - 45.0 [facility] RDW coefficient of variation 17.6(H) 11.4 - 13.8 % [facility] Mean Platelet Volume 10.5 7.6 - 12.9 [facility] NRBC% auto 0.0 % [facility] NRBC Absolute 0.000 0.000 - 0.000 x10(3)/[facility] Blood specimen (specimen) 03/01/2018 8:35 AM EDT 03/01/2018 8:43 AM EDT Narrative Resulting Agency Comment Spec In Lab Reba Linton MD HEMATOLOGY ORDER LYNDSEY [facility] [place] [address] * Lipid Panel (03/01/2018 8:35 AM EDT) Cholesterol, Total 273 mg/dL [facility] Comment: Lower Risk: <200 mg/dL Average Risk: 200-239 mg/dL Higher Risk: >cb=684 mg/dL Triglyceride 2,210 mg/dL [facility] Comment: Average Risk/Lower Risk: <150 mg/dL Borderline High Risk: 150-199 mg/dL High Risk: 200-499 mg/dL Very High Risk: >sv=263 mg/dL HDL Cholesterol 13 mg/dL [facility] Comment: Males: ?? Higher Risk: <40 mg/dL Females: ?? HIgher Risk: <50 mg/dL LDL Cholesterol Not Calculated [facility] Comment: Lowest Risk: <100 mg/dL Lower Risk: 100-129 mg/dL Borderline High Risk: 130-159 mg/dL High Risk: 160-189 mg/dL Very High Risk: >ac=925 mg/dL Since a calculated LDL value is not valid for triglycerides greater than 400 mg/dl, a direct LDL determination is performed instead. Lowest Risk: <100 mg/dL Lower Risk: 100-129 mg/dL Borderline High Risk: 130-159 mg/dL High Risk: 160-189 mg/dL Very High Risk: >rn=746 mg/dL Corrected from -182 mg/dL [NA] on 03/01/18 09:31 by Lili Reilly. Cholesterol/HDL Ratio 21.0 ratio [facility] Lipid Interpretation See Note [facility] Comment: Lipid management should be guided by a patient? s ASCVD risk, goals and preferences. ACC/AHA Guidelines recommend high intensity statin if clinical ASCVD or LDL greater than or equal to 190 mg/dL. http://tinyurl.com/VHI-VPV-Yrklbauci Adults aged 40-75 with LDL 70-189 mg/dL should have their 10 year ASCVD risk estimated with the ACC/AHA ASCVD risk slip cover estimator http://tools.acc.org/JFBOJ-Jknm-Xgrmkmqzd/ Statin should be discussed if risk greater [...] Lab Reba Linton MD CHEMISTRY ORDERA BLES [facility] [place] [address] * (ABNORMAL) Basic Metabolic Panel (non-fasting) (03/01/2018 8:35 AM EDT) Glucose 109 65 - 199 mg/dL [facility] Comment:Diabetes: >=200 mg/d L plus symptoms Blood Urea Nitrogen 22(H) 10 - 20 mg/dL [facility] Creatinine 0.96 0.80 - 1.50 mg/dL [facility] Comment:Specimen ultracentri fuged due to gross lipemia Sodium 148(H) 135 - 145 mmol/L [facility] Comment:Specimen ultracentri fuged due to gross lipemia Potassium Not Perf 3.5 - 5.0 [facility] Comment: Unable to quantitate due to sample hemolysis. ??Sample redraw suggested. ??Called to Suzi 03/01/18 09:21. mkf Please note: ??Patients with WBC >100,000 may have falsely elevated Potassium levels. ??For accurate Potassium quantification in these patients send serum separator tube (gold top) for subsequent determinations. ??Contact the Clinical Chemistry Laboratory if there are any questions. Chloride 107 98 - 107 mmol/L [facility] Carbon Dioxide 26 22 - 31 mmol/L [facility] Anion Gap 15 5 - 15 mmol/L [facility] Calcium 9.5 8.5 - 10.5 mg/dL [facility] Est Glomerular Filtration Rate 108 >=60 mL/min/1. 73 m?? [facility] Comment: The eGFR was calculated using the CKD-EPI equation. As with all creatinine based estimates of kidney function, eGFR values calculated with the CKD-EPI equation are not accurate in patients with acute kidney failure, extremes of body mass or the acutely ill. http://SeeWhy/[facility]kf eGFR 125 >=60 mL/min/1. 73 m?? [facility] Comment: The eGFR was calculated using the CKD-EPI equation. As with all creatinine based estimates of kidney function, eGFR values calculated with the CKD-EPI equation are not accurate in patients with acute kidney failure, extremes of body mass or the acutely ill. [email or web address] Blood specimen (specimen) 03/01/2018 8:35 AM EDT 03/01/2018 8:42 AM EDT Narrative Resulting Agency Comment Spec In Lab Reba Linton MD CHEMISTRY ORDERA BLES Performing Organization Address City/[facility]/ZIP Co de Phone Number [facility] [place] [address] * Blood culture (03/01/2018 8:35 AM EDT) Blood Culture No growth at 5 days. [facility] Blood specimen (specimen) 03/01/2018 8:35 AM EDT 03/01/2018 9:34 AM EDT Narrative Resulting Agency Comment Spec In Lab Reba Linton MD MICROBIOLOGY - B LOOD ORDERABLES Performing Organization Address [facility]/ZIP Co de Phone Number [facility] [place] [address] * Potassium (02/28/2018 4:20 PM EDT) Potassium 4.1 3.5 - 5.0 mmol/L [facility] Comment: Specimen ultracentrifuged due to [...] MD CHEMISTRY ORDERA BLES Performing Organization Address City/[facility]/ZIP Co de Phone Number [facility] [place] [address] * Lavender Tube HOLD (02/28/2018 4:20 PM EDT) Lavender Hold Sample in lab. [facility] Blood specimen (specimen) Venous Draw / Unknown 02/28/2018 4:20 PM EDT 02/28/2018 4:33 PM EDT Reba Linton MD HEMATOLOGY ORDER LYNDSEY Performing Organization Address City/[facility]/ZIP Co de Phone Number [facility] [place] [address] * Blood culture (02/28/2018 4:20 PM EDT) Blood Culture No growth at 5 days. [facility] Blood specimen (specimen) 02/28/2018 4:20 PM EDT 02/28/2018 5:06 PM EDT Narrative Resulting Agency Comment Spec In Lab Reba Linton MD MICROBIOLOGY - B LOOD ORDERABLES [facility] [place] [address] * (ABNORMAL) Basic Metabolic Panel (non-fasting) (02/28/2018 4:20 PM EDT) Glucose 129 65 - 199 mg/dL [facility] Comment:Diabetes: >=200 mg/d L plus symptoms Blood Urea Nitrogen 15 10 - 20 mg/dL [facility] Creatinine 1.02 0.80 - 1.50 mg/dL [facility] Comment:Specimen ultracentri fuged due to gross lipemia Sodium 147(H) 135 - 145 mmol/L [facility] Comment:Specimen ultracentri fuged due to gross lipemia Potassium Not Perf 3.5 - 5.0 [facility] Comment: Unable to quantitate due to sample hemolysis. ??Sample redraw suggested. called to sarika gomez 02/28/18 17:16 Please note: ??Patients with WBC >100,000 may have falsely elevated Potassium levels. ??For accurate Potassium quantification in these patients send serum separator tube (gold top) for subsequent determinations. ??Contact the Clinical Chemistry Laboratory if there are any questions. Chloride 109(H) 98 - 107 mmol/L [facility] Comment:Specimen ultracentri fuged due to gross lipemia Carbon Dioxide 21(L) 22 - 31 mmol/L [facility] Anion Gap 17(H) 5 - 15 mmol/L [facility] Calcium 9.3 8.5 - 10.5 mg/dL [facility] Est Glomerular Filtration Rate 100 >=60 mL/min/1. 73 m?? [facility] Comment: The eGFR was calculated using the CKD-EPI equation. As with all creatinine based estimates of kidney function, eGFR values calculated with the CKD-EPI equation are not accurate in patients with acute kidney failure, extremes of body mass or the acutely ill. [email or web address] eGFR 116 >=60 mL/min/1. 73 m?? [facility] Comment: The eGFR was calculated using the CKD-EPI equation. As with all creatinine based estimates of kidney function, eGFR values calculated with the CKD-EPI equation are not accurate in patients with acute kidney failure, extremes of body mass or the acutely ill. [email or web address] Blood specimen (specimen) 02/28/2018 4:20 PM EDT 02/28/2018 4:32 PM EDT Narrative Resulting Agency Comment Spec In Lab Reba Linton MD CHEMISTRY ORDERA BLES [facility] [place] [address] * Cardiac Enzymes (LEB/CGP) (02/28/2018 4:20 PM EDT) Troponin-T <0.01 0.00 - 0.00 ng/mL [facility] Comment: The 99th percentile for Troponin T is less than 0.01 ng/mL, any detectable cTnT concentration using this assay should be considered elevated. According to the third universal definition of myocardial infarction the following criteria with a clinical presentation consistent with acute myocardial ischemia meets the diagnosis for a myocardial infarction (CT). Detection of a rise and/or fall of cTnT, with at least one value greater than the 99th percentile (> or = 0.01) and with at least one of the following ?? Symptoms of ischemia ?? New or presumed new significant GD-ahemcar-U wave (ST-T) changes or new left bundle [...] additional sample may be indicated. Reference: Third [place] Definition of Myocardial Infarction. Journal of the [place] [employer] 2012;60:1581-98 Creatine Kinase 69 0 - 200 unit/L [facility] Blood specimen (specimen) 02/28/2018 4:20 PM EDT 02/28/2018 4:32 PM EDT Narrative Resulting Agency Comment Spec In Lab Reba Linton MD CHEMISTRY ORDERA BLES Performing Organization Address [facility]/[place] [address] * (ABNORMAL) Urine culture (02/28/2018 3:53 PM EDT) Urine Culture 10,000-49,000 cfu/ml Citrobacter koseri (Citrobacter diversus)(A) [facility] Organism Citrobacter koseri (Citrobacter diversus)(A) [facility] Urine specimen obtained by clean [...] - G ENERAL ORDERABLES Performing Organization Address City/[facility]/ZIP Co de Phone Number [facility] [place] [address] * (ABNORMAL) Urinalysis Microscopic Exam (02/28/2018 3:53 PM EDT) RBC, Urine 2 0 - 3 /HPF [facility] WBC, Urine 24(H) 0 - 3 /HPF [facility] Squamous Epithelial Cells Raw Data, Urine <1 <=4 /HPF [facility] Urine specimen obtained by clean catch procedure (specimen) 02/28/2018 3:53 PM EDT 02/28/2018 4:09 PM EDT Narrative Resulting Agency Comment Spec In Lab Reba Linton MD URINE ORDERABLES Performing Organization Address City/[facility]/ZIP Co de Phone Number [facility] [place] [address] * Urine Hold (02/28/2018 3:53 PM EDT) Hold, Urine Sample in lab. [facility] Urine specimen (specimen) Urine / Unknown 02/28/2018 3:53 PM EDT 02/28/2018 4:09 PM EDT Reba Linton MD URINE ORDERABLES Performing Organization Address City/[facility]/ZIP Co de Phone Number [facility] [place] [address] * (ABNORMAL) Urinalysis with reflex Culture (02/28/2018 3:53 PM EDT) Glucose, Urine Dipstick Negative Negative mg/dL [facility] Protein, Urine Dipstick Negative Negative mg/dL [facility] Bilirubin, Urine Dipstick Negative Negative mg/dL [facility] Comment: Clinical correlation required for positive Urine Bilirubin results as false positive may occur with some drugs and drug related products. If a false positive is suspected a serum total bilirubin should be considered if clinically indicated. Urobilinogen, Urine Dipstick Normal Normal mg/dL [facility] pH, Urn (dipstick) 6.0 5.0 - 8.0 [facility] Blood, Urine Dipstick Negative Negative mg/dL [facility] Ketone, Urine Dipstick Negative Negative mg/dL [facility] Nitrite, Urine Dipstick Negative Negative [facility] Leukocytes, Urine Dipstick Small(A) Negative [facility] Appearance, Urine Dipstick Clear Clear [facility] Specific [place] Urine Automated 1.013 1.002 - 1.030 [facility] Color, Urine Dipstick Yellow Yellow [facility] Reflex to Culture Yes [facility] Urine specimen obtained by clean catch procedure (specimen) 02/28/2018 3:53 PM EDT 02/28/2018 4:09 PM EDT Narrative Resulting Agency Comment Spec In Lab Reba Linton MD URINE ORDERABLES Performing Organization Address City/State/[facility] Co de Phone Number [facility] [place] [phone] * EKG 12 Lead (02/28/2018 11:26 AM EDT) Ventricular rate 112 BPM MUSE SYSTEM Atrial Rate 112 BPM MUSE SYSTEM P-R Interval 138 ms MUSE SYSTEM QRS Duration 84 ms MUSE SYSTEM Q-T Interval 326 ms MUSE SYSTEM QTC Calculated (Bezet) 444 ms MUSE SYSTEM Calculated P Milton 15 degrees MUSE SYSTEM Calculated R [place] 56 degrees MUSE SYSTEM Calculated T Milton 43 degrees MUSE SYSTEM INTERPRETATION Sinus tachycardia Nonspecific T wave abnormality Abnormal ECG When compared with ECG of 28-FEB-2018 05:43, (unconfirmed) Non-specific change in ST segment in Anterior leads Nonspecific T wave abnormality has replaced inverted T waves in Inferior leads Confirmed by MD Gene, Constantino Jacobs ([id number]) on 02/28/2018 3:58:07 PM MUSE SYSTEM 02/28/2018 11:2 6 AM EDT 02/28/2018 3:58 PM EDT Reba Linton MD ECG ORDERABLES MUSE SYSTEM * Cardiac Enzymes (LEB/CGP) (02/28/2018 9:26 AM EDT) Troponin-T Not Perf 0.00 - 0.00 [facility] Comment: Unable to quantitate due [...] meets the diagnosis for a myocardial infarction (CT). Detection of a rise and/or fall of cTnT, with at least one value greater than the 99th percentile (> or = 0.01) and with at least one of the following ?? Symptoms of ischemia ?? New or presumed new significant JC-ienjnkv-P wave (ST-T) changes or new left bundle [...] additional sample may be indicated. Reference: Third [place] Definition of Myocardial Infarction. Journal of the [place] [employer] 2012;60:1581-98 Creatine Kinase Not Perf 0 - 200 [facility] Comment: Unable to quantitate due to sample hemolysis. ??Sample redraw suggested. Called by: loyda, Read back by: noel urbano, Date/Time:02/28/18 10:14. Blood specimen (specimen) Venous Draw / Unknown 02/28/2018 9:26 AM EDT 02/28/2018 9:32 AM EDT Narrative Resulting Agency Comment Spec In Lab Reba Linton MD CHEMISTRY ORDERA BLES [facility] [place] [address] * (ABNORMAL) Basic Metabolic Panel (non-fasting) (02/28/2018 9:26 AM EDT) Glucose 208(H) 65 - 199 mg/dL [facility] Comment: Specimen ultracentrifuged due to gross lipemia Diabetes: >=200 mg/dL plus symptoms Blood Urea Nitrogen 13 10 - 20 mg/dL [facility] Comment:Specimen ultracentri fuged due to gross lipemia Creatinine 0.89 0.80 - 1.50 mg/dL [facility] Comment:Specimen ultracentri fuged due to gross lipemia Sodium 150(H) 135 - 145 mmol/L [facility] Comment:Specimen ultracentri fuged due to gross lipemia Potassium Not Perf 3.5 - 5.0 [facility] Comment: Unable to quantitate due [...] questions. Chloride 112(H) 98 - 107 mmol/L [facility] Comment:Specimen ultracentri fuged due to gross lipemia Carbon Dioxide 23 22 - 31 mmol/L [facility] Comment:Specimen ultracentri fuged due to gross lipemia Anion Gap 15 5 - 15 mmol/L [facility] Calcium 9.7 8.5 - 10.5 mg/dL [facility] Comment:Specimen ultracentri fuged due to gross lipemia Est Glomerular Filtration Rate 117 >=60 mL/min/1. 73 m?? [facility] Comment: The eGFR was calculated using the CKD-EPI equation. As with all creatinine based estimates of kidney function, eGFR values calculated with the CKD-EPI equation are not accurate in patients with acute kidney failure, extremes of body mass or the acutely ill. http://SeeWhy/[facility] TULSAnkf eGFR 136 >=60 mL/min/1. 73 m?? [facility] Comment: The eGFR was calculated using the CKD-EPI equation. As with all creatinine based estimates of kidney function, eGFR values calculated with the CKD-EPI equation are not accurate in patients with acute kidney failure, extremes of body mass or the acutely ill. [email or web address] Blood specimen (specimen) 02/28/2018 9:26 AM EDT 02/28/2018 9:32 AM EDT Narrative Resulting Agency Comment Spec In Lab Reba Linton MD CHEMISTRY ORDERA BLES Performing Organization Address [facility]/ZIP Co de Phone Number [facility] [place] [address] * EKG 12 Lead (02/28/2018 5:43 AM EDT) Ventricular rate 127 BPM MUSE SYSTEM Atrial Rate 127 BPM MUSE SYSTEM P-R Interval 136 ms MUSE SYSTEM QRS Duration 94 ms MUSE SYSTEM Q-T Interval 316 ms MUSE SYSTEM QTC Calculated (Bezet) 459 ms MUSE SYSTEM Calculated P Milton 41 degrees MUSE SYSTEM Calculated R [place] 72 degrees MUSE SYSTEM Calculated T Milton 40 degrees MUSE SYSTEM INTERPRETATION Sinus tachycardia ST & T wave abnormality, consider anterolateral ischemia T wave abnormality, consider inferior ischemia Abnormal ECG When compared with ECG of 05-DEC-2017 17:29, Non-specific change in ST segment in Anterior leads T wave inversion now evident in Inferior leads Nonspecific T wave abnormality now evident in Anterior leads Confirmed by MD Mills Gregory A. ([id number]) on 02/28/2018 3:57:48 PM MUSE SYSTEM 02/28/2018 5:43 AM EDT 02/28/2018 3:57 PM EDT Brenda Greco APRN ECG ORDERABLES Performing Organization Address [facility]/ZIP Co de Phone Number MUSE SYSTEM * Potassium (02/27/2018 5:58 AM EDT) Potassium 4.3 3.5 - 5.0 mmol/L [facility] [...] In Lab Abimbola Goldstein MD CHEMISTRY ORDERABLES [facility] [place] [address] * (ABNORMAL) Basic Metabolic Panel (non-fasting) (02/27/2018 4:14 AM EDT) Glucose 244(H) 65 - 199 mg/dL [facility] Comment: result rechecked-[facility] Diabetes: >=200 mg/dL plus symptoms Blood Urea Nitrogen 12 10 - 20 mg/dL [facility] Creatinine 0.63(L) 0.80 - 1.50 mg/dL [facility] Sodium 146(H) 135 - 145 mmol/L [facility] Potassium Not Perf 3.5 - 5.0 [facility] Comment: Specimen hemolyzed. Called by: [facility], Read back by: Emerald Rasheed, Date/Time:02/27/18 05:43. Please note: ??Patients with WBC >100,000 may have falsely elevated Potassium levels. ??For accurate Potassium quantification in these patients send serum separator tube (gold top) for subsequent determinations. ??Contact the Clinical Chemistry Laboratory if there are any questions. Chloride 111(H) 98 - 107 mmol/L [facility] Carbon Dioxide 23 22 - 31 mmol/L [facility] Anion Gap 12 5 - 15 mmol/L [facility] Calcium 9.7 8.5 - 10.5 mg/dL [facility] Est Glomerular Filtration Rate 135 >=60 mL/min/1. 73 m?? [facility] Comment: The eGFR was calculated using the CKD-EPI equation. As with all creatinine based estimates of kidney function, eGFR values calculated with the CKD-EPI equation are not accurate in patients with acute kidney failure, extremes of body mass or the acutely ill. http://SeeWhy/[facility]ULSAnkf eGFR 157 >=60 mL/min/1. 73 m?? [facility] Comment: The eGFR was calculated using the CKD-EPI equation. As with all creatinine based estimates of kidney function, eGFR values calculated with the CKD-EPI equation are not accurate in patients with acute kidney failure, extremes of body mass or the acutely ill. http://SeeWhy/[facility]ULSAnkf Blood specimen (specimen) 02/27/2018 4:14 AM EDT 02/27/2018 4:55 AM EDT Narrative Resulting Agency Comment Spec In Lab Abimbola Goldstein MD CHEMISTRY ORDERABLES [facility] [place] [address] * (ABNORMAL) Basic Metabolic Panel (non-fasting) (02/24/2018 5:25 AM EDT) Glucose 89 65 - 199 mg/dL [facility] Comment:Diabetes: >=200 mg/d L plus symptoms Blood Urea Nitrogen 22(H) 10 - 20 mg/dL [facility] Creatinine 0.79(L) 0.80 - 1.50 mg/dL [facility] Sodium 146(H) 135 - 145 mmol/L [facility] Potassium 3.5 3.5 - 5.0 mmol/L [facility] Comment: Please note: ??Patients with WBC >100,000 may have falsely elevated Potassium levels. ??For accurate Potassium quantification in these patients send serum separator tube (gold top) for subsequent determinations. ??Contact the Clinical Chemistry Laboratory if there are any questions. Chloride 106 98 - 107 mmol/L [facility] Carbon Dioxide 27 22 - 31 mmol/L [facility] Anion Gap 13 5 - 15 mmol/L [facility] Calcium 9.7 8.5 - 10.5 mg/dL [facility] Est Glomerular Filtration Rate 123 >=60 mL/min/1. 73 m?? [facility] Comment: The eGFR was calculated using the CKD-EPI equation. As with all creatinine based estimates of kidney function, eGFR values calculated with the CKD-EPI equation are not accurate in patients with acute kidney failure, extremes of body mass or the acutely ill. http://SeeWhy/[facility]ULSAnkf eGFR 143 >=60 mL/min/1. 73 m?? [facility] Comment: The eGFR was calculated using the CKD-EPI equation. As with all creatinine based estimates of kidney function, eGFR values calculated with the CKD-EPI equation are not accurate in patients with acute kidney failure, extremes of body mass or the acutely ill. [email or web address] Blood specimen (specimen) 02/24/2018 5:25 AM EDT 02/24/2018 5:39 AM EDT Narrative Resulting Agency Comment Spec In Lab Abimbola Goldstein MD CHEMISTRY ORDERABLES [facility] [place] [address] * (ABNORMAL) Basic Metabolic Panel (non-fasting) (02/23/2018 9:10 AM EDT) Glucose 106 65 - 199 mg/dL [facility] Comment:Diabetes: >=200 mg/d L plus symptoms Blood Urea Nitrogen 19 10 - 20 mg/dL [facility] Creatinine 0.79(L) 0.80 - 1.50 mg/dL [facility] Sodium 150(H) 135 - 145 mmol/L [facility] Potassium 3.9 3.5 - 5.0 mmol/L [facility] Comment: Please note: ??Patients with WBC >100,000 may have falsely elevated Potassium levels. ??For accurate Potassium quantification in these patients send serum separator tube (gold top) for subsequent determinations. ??Contact the Clinical Chemistry Laboratory if there are any questions. Chloride 111(H) 98 - 107 mmol/L [facility] Carbon Dioxide 24 22 - 31 mmol/L [facility] Anion Gap 15 5 - 15 mmol/L [facility] Calcium 10.3 8.5 - 10.5 mg/dL [facility] Est Glomerular Filtration Rate 123 >=60 mL/min/1. 73 m?? [facility] Comment: The eGFR was calculated using the CKD-EPI equation. As with all creatinine based estimates of kidney function, eGFR values calculated with the CKD-EPI equation are not accurate in patients with acute kidney failure, extremes of body mass or the acutely ill. [email or web address] eGFR 143 >=60 mL/min/1. 73 m?? [facility] Comment: The eGFR was calculated using the CKD-EPI equation. As with all creatinine based estimates of kidney function, eGFR values calculated with the CKD-EPI equation are not accurate in patients with acute kidney failure, extremes of body mass or the acutely ill. [email or web address] Blood specimen (specimen) 02/23/2018 9:10 AM EDT 02/23/2018 9:19 AM EDT Narrative Resulting Agency Comment Spec In Lab Maldonado Salazar MD CHEMISTRY ORDERABLES [facility] [place] [address] * (ABNORMAL) Basic Metabolic Panel (non-fasting) (02/20/2018 5:38 AM EDT) Glucose 125 65 - 199 mg/dL [facility] Comment:Diabetes: >=200 mg/d L plus symptoms Blood Urea Nitrogen 15 10 - 20 mg/dL [facility] Creatinine 0.68(L) 0.80 - 1.50 mg/dL [facility] Sodium 142 135 - 145 mmol/L [facility] Potassium 3.4(L) 3.5 - 5.0 mmol/L [facility] Comment: Please note: ??Patients with WBC >100,000 may have falsely elevated Potassium levels. ??For accurate Potassium quantification in these patients send serum separator tube (gold top) for subsequent determinations. ??Contact the Clinical Chemistry Laboratory if there are any questions. Chloride 106 98 - 107 mmol/L [facility] Carbon Dioxide 24 22 - 31 mmol/L [facility] Anion Gap 12 5 - 15 mmol/L [facility] Calcium 9.7 8.5 - 10.5 mg/dL [facility] Est Glomerular Filtration Rate 131 >=60 mL/min/1. 73 m?? [facility] Comment: The eGFR was calculated using the CKD-EPI equation. As with all creatinine based estimates of kidney function, eGFR values calculated with the CKD-EPI equation are not accurate in patients with acute kidney failure, extremes of body mass or the acutely ill. http://SeeWhy/[facility]SAnkf eGFR 152 >=60 mL/min/1. 73 m?? [facility] Comment: The eGFR was calculated using the CKD-EPI equation. As with all creatinine based estimates of kidney function, eGFR values calculated with the CKD-EPI equation are not accurate in patients with acute kidney failure, extremes of body mass or the acutely ill. [email or web address] Blood specimen (specimen) 02/20/2018 5:38 AM EDT 02/20/2018 5:45 AM EDT Narrative Resulting Agency Comment Spec In Lab Maldonado Salazar MD CHEMISTRY ORDERABLES [facility] [place] [address] * (ABNORMAL) Basic Metabolic Panel (non-fasting) (02/17/2018 11:29 AM EDT) Glucose 82 65 - 199 mg/dL [facility] Comment:Diabetes: >=200 mg/d L plus symptoms Blood Urea Nitrogen 17 10 - 20 mg/dL [facility] Creatinine 0.78(L) 0.80 - 1.50 mg/dL [facility] Sodium 144 135 - 145 mmol/L [facility] Potassium 4.0 3.5 - 5.0 mmol/L [facility] Comment: Please note: ??Patients with WBC >100,000 may have falsely elevated Potassium levels. ??For accurate Potassium quantification in these patients send serum separator tube (gold top) for subsequent determinations. ??Contact the Clinical Chemistry Laboratory if there are any questions. Chloride 105 98 - 107 mmol/L [facility] Carbon Dioxide 20(L) 22 - 31 mmol/L [facility] Anion Gap 19(H) 5 - 15 mmol/L [facility] Calcium 9.7 8.5 - 10.5 mg/dL [facility] Est Glomerular Filtration Rate 124 >=60 mL/min/1. 73 m?? [facility] Comment: The eGFR was calculated using the CKD-EPI equation. As with all creatinine based estimates of kidney function, eGFR values calculated with the CKD-EPI equation are not accurate in patients with acute kidney failure, extremes of body mass or the acutely ill. http://SeeWhy/[facility]kf eGFR 143 >=60 mL/min/1. 73 m?? [facility] Comment: The eGFR was calculated using the CKD-EPI equation. As with all creatinine based estimates of kidney function, eGFR values calculated with the CKD-EPI equation are not accurate in patients with acute kidney failure, extremes of body mass or the acutely ill. [email or web address] Blood specimen (specimen) 02/17/2018 11:29 AM EDT 02/17/2018 12:22 PM EDT Narrative Resulting Agency Comment Spec In Lab Mladonado Salazar MD CHEMISTRY ORDERABLES [facility] [place] [address] * Basic Metabolic Panel (non-fasting) (02/16/2018 1:55 PM EDT) Glucose 150 65 - 199 mg/dL [facility] Comment:Diabetes: >=200 mg/d L plus symptoms Blood Urea Nitrogen 20 10 - 20 mg/dL [facility] Creatinine 0.83 0.80 - 1.50 mg/dL [facility] Sodium 143 135 - 145 mmol/L [facility] Potassium 3.7 3.5 - 5.0 mmol/L [facility] Comment: Please note: ??Patients with WBC >100,000 may have falsely elevated Potassium levels. ??For accurate Potassium quantification in these patients send serum separator tube (gold top) for subsequent determinations. ??Contact the Clinical Chemistry Laboratory if there are any questions. Chloride 105 98 - 107 mmol/L [facility] Carbon Dioxide 24 22 - 31 mmol/L [facility] Anion Gap 14 5 - 15 mmol/L [facility] Calcium 9.3 8.5 - 10.5 mg/dL [facility] Est Glomerular Filtration Rate 121 >=60 mL/min/1. 73 m?? [facility] Comment: The eGFR was calculated using the CKD-EPI equation. As with all creatinine based estimates of kidney function, eGFR values calculated with the CKD-EPI equation are not accurate in patients with acute kidney failure, extremes of body mass or the acutely ill. http://SeeWhy/[facility] eGFR 140 >=60 mL/min/1. 73 m?? [facility] Comment: The eGFR was calculated using the CKD-EPI equation. As with all creatinine based estimates of kidney function, eGFR values calculated with the CKD-EPI equation are not accurate in patients with acute kidney failure, extremes of body mass or the acutely ill. [email or web address]/[facility]SAnkf Blood specimen (specimen) 02/16/2018 1:55 PM EDT 02/16/2018 2:11 PM EDT Narrative Resulting Agency Comment Spec In Lab Maldonado Salazar MD CHEMISTRY ORDERABLES [facility] [place] [address] * (ABNORMAL) Basic Metabolic Panel (non-fasting) (02/15/2018 9:37 AM EDT) Glucose 90 65 - 199 mg/dL [facility] Comment:Diabetes: >=200 mg/d L plus symptoms Blood Urea Nitrogen 16 10 - 20 mg/dL [facility] Creatinine 0.88 0.80 - 1.50 mg/dL [facility] Sodium 150(H) 135 - 145 mmol/L [facility] Potassium 4.0 3.5 - 5.0 mmol/L [facility] Comment: Please note: ??Patients with WBC >100,000 may have falsely elevated Potassium levels. ??For accurate Potassium quantification in these patients send serum separator tube (gold top) for subsequent determinations. ??Contact the Clinical Chemistry Laboratory if there are any questions. Chloride 111(H) 98 - 107 mmol/L [facility] Carbon Dioxide 21(L) 22 - 31 mmol/L [facility] Anion Gap 18(H) 5 - 15 mmol/L [facility] Calcium 9.9 8.5 - 10.5 mg/dL [facility] Est Glomerular Filtration Rate 118 >=60 mL/min/1. 73 m?? [facility] Comment: The eGFR was calculated using the CKD-EPI equation. As with all creatinine based estimates of kidney function, eGFR values calculated with the CKD-EPI equation are not accurate in patients with acute kidney failure, extremes of body mass or the acutely ill. [email or web address] eGFR 136 >=60 mL/min/1. 73 m?? [facility] Comment: The eGFR was calculated using the CKD-EPI equation. As with all creatinine based estimates of kidney function, eGFR values calculated with the CKD-EPI equation are not accurate in patients with acute kidney failure, extremes of body mass or the acutely ill. [email or web address] Blood specimen (specimen) 02/15/2018 9:37 AM EDT 02/15/2018 10:01 AM EDT Narrative Resulting Agency Comment Spec In Lab Maldonado Salazar MD CHEMISTRY ORDERABLES [facility] [place] [address] * (ABNORMAL) Basic Metabolic Panel (non-fasting) (02/14/2018 11:38 AM EDT) Glucose 261(H) 65 - 199 mg/dL [facility] Comment:Diabetes: >=200 mg/d L plus symptoms Blood Urea Nitrogen 14 10 - 20 mg/dL [facility] Creatinine 0.89 0.80 - 1.50 mg/dL [facility] Sodium 150(H) 135 - 145 mmol/L [facility] Potassium 4.1 3.5 - 5.0 mmol/L [facility] Comment: Please note: ??Patients with WBC >100,000 may have falsely elevated Potassium levels. ??For accurate Potassium quantification in these patients send serum separator tube (gold top) for subsequent determinations. ??Contact the Clinical Chemistry Laboratory if there are any questions. Chloride 112(H) 98 - 107 mmol/L [facility] Carbon Dioxide 22 22 - 31 mmol/L [facility] Anion Gap 16(H) 5 - 15 mmol/L [facility] Calcium 9.8 8.5 - 10.5 mg/dL [facility] Est Glomerular Filtration Rate 117 >=60 mL/min/1. 73 m?? [facility] Comment: The eGFR was calculated using the CKD-EPI equation. As with all creatinine based estimates of kidney function, eGFR values calculated with the CKD-EPI equation are not accurate in patients with acute kidney failure, extremes of body mass or the acutely ill. [email or web address] eGFR 136 >=60 mL/min/1. 73 m?? [facility] Comment: The eGFR was calculated using the CKD-EPI equation. As with all creatinine based estimates of kidney function, eGFR values calculated with the CKD-EPI equation are not accurate in patients with acute kidney failure, extremes of body mass or the acutely ill. [email or web address] Blood specimen (specimen) 02/14/2018 11:38 AM EDT 02/14/2018 11:44 AM EDT Narrative Resulting Agency Comment Spec In Lab Maldonado Salazar MD CHEMISTRY ORDERABLES [facility] [place] [address] * (ABNORMAL) Basic Metabolic Panel (non-fasting) (02/14/2018 6:10 AM EDT) Glucose 159 65 - 199 mg/dL [facility] Comment:Diabetes: >=200 mg/d L plus symptoms Blood Urea Nitrogen 15 10 - 20 mg/dL [facility] Creatinine 0.62(L) 0.80 - 1.50 mg/dL [facility] Sodium 151(H) 135 - 145 mmol/L [facility] Potassium 3.8 3.5 - 5.0 mmol/L [facility] Comment: Please note: ??Patients with WBC >100,000 may have falsely elevated Potassium levels. ??For accurate Potassium quantification in these patients send serum separator tube (gold top) for subsequent determinations. ??Contact the Clinical Chemistry Laboratory if there are any questions. Chloride 112(H) 98 - 107 mmol/L [facility] Carbon Dioxide 24 22 - 31 mmol/L [facility] Anion Gap 15 5 - 15 mmol/L [facility] Calcium 10.0 8.5 - 10.5 mg/dL [facility] Est Glomerular Filtration Rate 136 >=60 mL/min/1. 73 m?? [facility] Comment: The eGFR was calculated using the CKD-EPI equation. As with all creatinine based estimates of kidney function, eGFR values calculated with the CKD-EPI equation are not accurate in patients with acute kidney failure, extremes of body mass or the acutely ill. http://SeeWhy/[facility]kf eGFR 158 >=60 mL/min/1. 73 m?? [facility] Comment: The eGFR was calculated using the CKD-EPI equation. As with all creatinine based estimates of kidney function, eGFR values calculated with the CKD-EPI equation are not accurate in patients with acute kidney failure, extremes of body mass or the acutely ill. [email or web address] Blood specimen (specimen) 02/14/2018 6:10 AM EDT 02/14/2018 6:26 AM EDT Narrative Resulting Agency Comment Spec In Lab Christopher Stanley MD CHEMISTRY ORDERABL ES [facility] [place] [address] * (ABNORMAL) Basic Metabolic Panel (non-fasting) (02/11/2018 7:23 AM EDT) Glucose 91 65 - 199 mg/dL [facility] Comment:Diabetes: >=200 mg/d L plus symptoms Blood Urea Nitrogen 15 10 - 20 mg/dL [facility] Creatinine 0.64(L) 0.80 - 1.50 mg/dL [facility] Sodium 145 135 - 145 mmol/L [facility] Potassium 3.5 3.5 - 5.0 mmol/L [facility] Comment: Please note: ??Patients with WBC >100,000 may have falsely elevated Potassium levels. ??For accurate Potassium quantification in these patients send serum separator tube (gold top) for subsequent determinations. ??Contact the Clinical Chemistry Laboratory if there are any questions. Chloride 106 98 - 107 mmol/L [facility] Carbon Dioxide 23 22 - 31 mmol/L [facility] Anion Gap 16(H) 5 - 15 mmol/L [facility] Calcium 9.4 8.5 - 10.5 mg/dL [facility] Est Glomerular Filtration Rate 134 >=60 mL/min/1. 73 m?? [facility] Comment: The eGFR was calculated using the CKD-EPI equation. As with all creatinine based estimates of kidney function, eGFR values calculated with the CKD-EPI equation are not accurate in patients with acute kidney failure, extremes of body mass or the acutely ill. http://SeeWhy/[facility]kf eGFR 156 >=60 mL/min/1. 73 m?? [facility] Comment: The eGFR was calculated using the CKD-EPI equation. As with all creatinine based estimates of kidney function, eGFR values calculated with the CKD-EPI equation are not accurate in patients with acute kidney failure, extremes of body mass or the acutely ill. [email or web address]/[facility]kf Blood specimen (specimen) 02/11/2018 7:23 AM EDT 02/11/2018 7:30 AM EDT Narrative Resulting Agency Comment Spec In Lab Christopher Stanley MD CHEMISTRY ORDERABL ES [facility] [place] [address] * (ABNORMAL) Basic Metabolic Panel (non-fasting) (02/08/2018 5:53 AM EDT) Glucose 89 65 - 199 mg/dL [facility] Comment:Diabetes: >=200 mg/d L plus symptoms Blood Urea Nitrogen 17 10 - 20 mg/dL [facility] Creatinine 0.88 0.80 - 1.50 mg/dL [facility] Sodium 144 135 - 145 mmol/L [facility] Potassium 3.6 3.5 - 5.0 mmol/L [facility] Comment: Please note: ??Patients with WBC >100,000 may have falsely elevated Potassium levels. ??For accurate Potassium quantification in these patients send serum separator tube (gold top) for subsequent determinations. ??Contact the Clinical Chemistry Laboratory if there are any questions. Chloride 103 98 - 107 mmol/L [facility] Carbon Dioxide 24 22 - 31 mmol/L [facility] Anion Gap 17(H) 5 - 15 mmol/L [facility] Calcium 9.7 8.5 - 10.5 mg/dL [facility] Est Glomerular Filtration Rate 118 >=60 mL/min/1. 73 m?? [facility] Comment: The eGFR was calculated using the CKD-EPI equation. As with all creatinine based estimates of kidney function, eGFR values calculated with the CKD-EPI equation are not accurate in patients with acute kidney failure, extremes of body mass or the acutely ill. http://SeeWhy/[facility]kf eGFR 136 >=60 mL/min/1. 73 m?? [facility] Comment: The eGFR was calculated using the CKD-EPI equation. As with all creatinine based estimates of kidney function, eGFR values calculated with the CKD-EPI equation are not accurate in patients with acute kidney failure, extremes of body mass or the acutely ill. [email or web address]/[facility]kf Blood specimen (specimen) 02/08/2018 5:53 AM EDT 02/08/2018 6:41 AM EDT Narrative Resulting Agency Comment Spec In Lab Fran Gilliam MD CHEMISTRY ORDERABL ES Performing Organization Address [facility] Co de Phone Number [facility] [place] [address] * Lavender Tube HOLD (02/06/2018 11:17 AM EDT) Lavender Hold Sample in lab. [facility] Blood specimen (specimen) Venous Draw / Unknown 02/06/2018 11:17 AM EDT 02/06/2018 11:43 AM EDT Fran Gilliam MD HEMATOLOGY ORDERAB LES Performing Organization Address [facility]/ZIP Co de Phone Number [facility] [place] [address] * (ABNORMAL) Basic Metabolic Panel (non-fasting) (02/06/2018 11:17 AM EDT) Glucose 104 65 - 199 mg/dL [facility] Comment:Diabetes: >=200 mg/d L plus symptoms Blood Urea Nitrogen 15 10 - 20 mg/dL [facility] Creatinine 0.74(L) 0.80 - 1.50 mg/dL [facility] Sodium 143 135 - 145 mmol/L [facility] Potassium 3.9 3.5 - 5.0 mmol/L [facility] Comment: Please note: ??Patients with WBC >100,000 may have falsely elevated Potassium levels. ??For accurate Potassium quantification in these patients send serum separator tube (gold top) for subsequent determinations. ??Contact the Clinical Chemistry Laboratory if there are any questions. Chloride 102 98 - 107 mmol/L [facility] Carbon Dioxide 23 22 - 31 mmol/L [facility] Anion Gap 18(H) 5 - 15 mmol/L [facility] Calcium 9.6 8.5 - 10.5 mg/dL [facility] Est Glomerular Filtration Rate 126 >=60 mL/min/1. 73 m?? [facility] Comment: The eGFR was calculated using the CKD-EPI equation. As with all creatinine based estimates of kidney function, eGFR values calculated with the CKD-EPI equation are not accurate in patients with acute kidney failure, extremes of body mass or the acutely ill. http://SeeWhy/[facility]kf eGFR 147 >=60 mL/min/1. 73 m?? [facility] Comment: The eGFR was calculated using the CKD-EPI equation. As with all creatinine based estimates of kidney function, eGFR values calculated with the CKD-EPI equation are not accurate in patients with acute kidney failure, extremes of body mass or the acutely ill. [email or web address]/[facility]kf Blood specimen (specimen) 02/06/2018 11:17 AM EDT 02/06/2018 11:43 AM EDT Narrative Resulting Agency Comment Spec In Lab Fran Gilliam MD CHEMISTRY ORDERABL ES [facility] [place] [address] * (ABNORMAL) Basic Metabolic Panel (non-fasting) (02/04/2018 6:30 AM EDT) Glucose 93 65 - 199 mg/dL [facility] Comment:Diabetes: >=200 mg/d L plus symptoms Blood Urea Nitrogen 15 10 - 20 mg/dL [facility] Creatinine 0.70(L) 0.80 - 1.50 mg/dL [facility] Sodium 140 135 - 145 mmol/L [facility] Potassium 3.6 3.5 - 5.0 mmol/L [facility] Comment: Please note: ??Patients with WBC >100,000 may have falsely elevated Potassium levels. ??For accurate Potassium quantification in these patients send serum separator tube (gold top) for subsequent determinations. ??Contact the Clinical Chemistry Laboratory if there are any questions. Chloride 100 98 - 107 mmol/L [facility] Carbon Dioxide 23 22 - 31 mmol/L [facility] Anion Gap 17(H) 5 - 15 mmol/L [facility] Calcium 9.8 8.5 - 10.5 mg/dL [facility] Est Glomerular Filtration Rate 129 >=60 mL/min/1. 73 m?? [facility] Comment: The eGFR was calculated using the CKD-EPI equation. As with all creatinine based estimates of kidney function, eGFR values calculated with the CKD-EPI equation are not accurate in patients with acute kidney failure, extremes of body mass or the acutely ill. http://SeeWhy/[facility]kf eGFR 150 >=60 mL/min/1. 73 m?? [facility] Comment: The eGFR was calculated using the CKD-EPI equation. As with all creatinine based estimates of kidney function, eGFR values calculated with the CKD-EPI equation are not accurate in patients with acute kidney failure, extremes of body mass or the acutely ill. http://SeeWhy/[facility]kf Blood specimen (specimen) 02/04/2018 6:30 AM EDT 02/04/2018 6:44 AM EDT Narrative Resulting Agency Comment Spec In Lab Fran Gilliam MD CHEMISTRY ORDERABL ES [facility] [place] [address] * (ABNORMAL) Basic Metabolic Panel (non-fasting) (02/02/2018 9:34 AM EDT) Glucose 107 65 - 199 mg/dL [facility] Comment:Diabetes: >=200 mg/d L plus symptoms Blood Urea Nitrogen 13 10 - 20 mg/dL [facility] Creatinine 0.76(L) 0.80 - 1.50 mg/dL [facility] Sodium 144 135 - 145 mmol/L [facility] Potassium 3.6 3.5 - 5.0 mmol/L [facility] Comment: Please note: ??Patients with WBC >100,000 may have falsely elevated Potassium levels. ??For accurate Potassium quantification in these patients send serum separator tube (gold top) for subsequent determinations. ??Contact the Clinical Chemistry Laboratory if there are any questions. Chloride 104 98 - 107 mmol/L [facility] Carbon Dioxide 24 22 - 31 mmol/L [facility] Anion Gap 16(H) 5 - 15 mmol/L [facility] Calcium 9.8 8.5 - 10.5 mg/dL [facility] Est Glomerular Filtration Rate 125 >=60 mL/min/1. 73 m?? [facility] Comment: The eGFR was calculated using the CKD-EPI equation. As with all creatinine based estimates of kidney function, eGFR values calculated with the CKD-EPI equation are not accurate in patients with acute kidney failure, extremes of body mass or the acutely ill. [email or web address] eGFR 145 >=60 mL/min/1. 73 m?? [facility] Comment: The eGFR was calculated using the CKD-EPI equation. As with all creatinine based estimates of kidney function, eGFR values calculated with the CKD-EPI equation are not accurate in patients with acute kidney failure, extremes of body mass or the acutely ill. [email or web address] Blood specimen (specimen) 02/02/2018 9:34 AM EDT 02/02/2018 9:49 AM EDT Narrative Resulting Agency Comment Spec In Lab Noah Menard MD CHEMISTRY ORDERABLES [facility] [place] [address] * (ABNORMAL) Basic Metabolic Panel (non-fasting) (02/01/2018 11:47 AM EDT) Glucose 119 65 - 199 mg/dL [facility] Comment:Diabetes: >=200 mg/d L plus symptoms Blood Urea Nitrogen 13 10 - 20 mg/dL [facility] Creatinine 0.69(L) 0.80 - 1.50 mg/dL [facility] Sodium 144 135 - 145 mmol/L [facility] Potassium 3.9 3.5 - 5.0 mmol/L [facility] Comment: Please note: ??Patients with WBC >100,000 may have falsely elevated Potassium levels. ??For accurate Potassium quantification in these patients send serum separator tube (gold top) for subsequent determinations. ??Contact the Clinical Chemistry Laboratory if there are any questions. Chloride 106 98 - 107 mmol/L [facility] Carbon Dioxide 22 22 - 31 mmol/L [facility] Anion Gap 16(H) 5 - 15 mmol/L [facility] Calcium 9.7 8.5 - 10.5 mg/dL [facility] Est Glomerular Filtration Rate 130 >=60 mL/min/1. 73 m?? [facility] Comment: The eGFR was calculated using the CKD-EPI equation. As with all creatinine based estimates of kidney function, eGFR values calculated with the CKD-EPI equation are not accurate in patients with acute kidney failure, extremes of body mass or the acutely ill. [email or web address] http://SeeWhy/[facility]kf eGFR 151 >=60 mL/min/1. 73 m?? [facility] Comment: The eGFR was calculated using the CKD-EPI equation. As with all creatinine based estimates of kidney function, eGFR values calculated with the CKD-EPI equation are not accurate in patients with acute kidney failure, extremes of body mass or the acutely ill. [email or web address]/[facility]kf Blood specimen (specimen) 02/01/2018 11:47 AM EDT 02/01/2018 12:00 PM EDT Narrative Resulting Agency Comment Spec In Lab Noah Menard MD CHEMISTRY ORDERABLES [facility] [place] [address] * (ABNORMAL) Basic Metabolic Panel (non-fasting) (01/31/2018 6:31 AM EDT) Glucose 99 65 - 199 mg/dL [facility] Comment:Diabetes: >=200 mg/d L plus symptoms Blood Urea Nitrogen 16 10 - 20 mg/dL [facility] Creatinine 0.66(L) 0.80 - 1.50 mg/dL [facility] Sodium 142 135 - 145 mmol/L [facility] Potassium 3.8 3.5 - 5.0 mmol/L [facility] Comment: Please note: ??Patients with WBC >100,000 may have falsely elevated Potassium levels. ??For accurate Potassium quantification in these patients send serum separator tube (gold top) for subsequent determinations. ??Contact the Clinical Chemistry Laboratory if there are any questions. Chloride 105 98 - 107 mmol/L [facility] Carbon Dioxide 22 22 - 31 mmol/L [facility] Anion Gap 15 5 - 15 mmol/L [facility] Calcium 9.6 8.5 - 10.5 mg/dL [facility] Est Glomerular Filtration Rate 132 >=60 mL/min/1. 73 m?? [facility] Comment: The eGFR was calculated using the CKD-EPI equation. As with all creatinine based estimates of kidney function, eGFR values calculated with the CKD-EPI equation are not accurate in patients with acute kidney failure, extremes of body mass or the acutely ill. [email or web address] [email or web address] eGFR 154 >=60 mL/min/1. 73 m?? [facility] Comment: The eGFR was calculated using the CKD-EPI equation. As with all creatinine based estimates of kidney function, eGFR values calculated with the CKD-EPI equation are not accurate in patients with acute kidney failure, extremes of body mass or the acutely ill. [email or web address] [email or web address]/[facility]kf Blood specimen (specimen) 01/31/2018 6:31 AM EDT 01/31/2018 6:51 AM EDT Narrative Resulting Agency Comment Spec In Lab Noah Menard MD CHEMISTRY ORDERABLES [facility] [place] [address] * (ABNORMAL) Basic Metabolic Panel (non-fasting) (01/30/2018 4:49 AM EDT) Glucose 98 65 - 199 mg/dL [facility] Comment:Diabetes: >=200 mg/d L plus symptoms Blood Urea Nitrogen 12 10 - 20 mg/dL [facility] Creatinine 0.62(L) 0.80 - 1.50 mg/dL [facility] Sodium 140 135 - 145 mmol/L [facility] Potassium 3.8 3.5 - 5.0 mmol/L [facility] Comment: Please note: ??Patients with WBC >100,000 may have falsely elevated Potassium levels. ??For accurate Potassium quantification in these patients send serum separator tube (gold top) for subsequent determinations. ??Contact the Clinical Chemistry Laboratory if there are any questions. Chloride 104 98 - 107 mmol/L [facility] Carbon Dioxide 21(L) 22 - 31 mmol/L [facility] Anion Gap 15 5 - 15 mmol/L [facility] Calcium 9.9 8.5 - 10.5 mg/dL [facility] Est Glomerular Filtration Rate 136 >=60 mL/min/1. 73 m?? [facility] Comment: The eGFR was calculated using the CKD-EPI equation. As with all creatinine based estimates of kidney function, eGFR values calculated with the CKD-EPI equation are not accurate in patients with acute kidney failure, extremes of body mass or the acutely ill. [email or web address] [email or web address] eGFR 158 >=60 mL/min/1. 73 m?? [facility] Comment: The eGFR was calculated using the CKD-EPI equation. As with all creatinine based estimates of kidney function, eGFR values calculated with the CKD-EPI equation are not accurate in patients with acute kidney failure, extremes of body mass or the acutely ill. [email or web address] Blood specimen (specimen) 01/30/2018 4:49 AM EDT 01/30/2018 4:55 AM EDT Narrative Resulting Agency Comment Spec In Lab Noah Menard MD CHEMISTRY ORDERABLES [facility] [place] [address] * (ABNORMAL) Basic Metabolic Panel (non-fasting) (01/29/2018 6:36 AM EDT) Glucose 113 65 - 199 mg/dL [facility] Comment:Diabetes: >=200 mg/d L plus symptoms Blood Urea Nitrogen 15 10 - 20 mg/dL [facility] Creatinine 0.72(L) 0.80 - 1.50 mg/dL [facility] Sodium 143 135 - 145 mmol/L [facility] Potassium 3.9 3.5 - 5.0 mmol/L [facility] Comment: Please note: ??Patients with WBC >100,000 may have falsely elevated Potassium levels. ??For accurate Potassium quantification in these patients send serum separator tube (gold top) for subsequent determinations. ??Contact the Clinical Chemistry Laboratory if there are any questions. Chloride 107 98 - 107 mmol/L [facility] Carbon Dioxide 21(L) 22 - 31 mmol/L [facility] Anion Gap 15 5 - 15 mmol/L [facility] Calcium 9.5 8.5 - 10.5 mg/dL [facility] Est Glomerular Filtration Rate 128 >=60 mL/min/1. 73 m?? [facility] Comment: The eGFR was calculated using the CKD-EPI equation. As with all creatinine based estimates of kidney function, eGFR values calculated with the CKD-EPI equation are not accurate in patients with acute kidney failure, extremes of body mass or the acutely ill. http://SeeWhy/EventRegistnkdep http://SeeWhy/[facility]kf eGFR 148 >=60 mL/min/1. 73 m?? [facility] Comment: The eGFR was calculated using the CKD-EPI equation. As with all creatinine based estimates of kidney function, eGFR values calculated with the CKD-EPI equation are not accurate in patients with acute kidney failure, extremes of body mass or the acutely ill. http://SeeWhy/DHnkdep http://SeeWhy/DHMCnkf Blood specimen (specimen) 01/29/2018 6:36 AM EDT 01/29/2018 6:49 AM EDT Narrative Resulting Agency Comment Spec In Lab Noah Menard MD CHEMISTRY ORDERABLES [facility] [place] [address] * (ABNORMAL) Basic Metabolic Panel (non-fasting) (01/28/2018 8:26 AM EDT) Glucose 112 65 - 199 mg/dL [facility] Comment:Diabetes: >=200 mg/d L plus symptoms Blood Urea Nitrogen 22(H) 10 - 20 mg/dL [facility] Creatinine 1.04 0.80 - 1.50 mg/dL [facility] Sodium 142 135 - 145 mmol/L [facility] Potassium 3.4(L) 3.5 - 5.0 mmol/L [facility] Comment: Please note: ??Patients with WBC >100,000 may have falsely elevated Potassium levels. ??For accurate Potassium quantification in these patients send serum separator tube (gold top) for subsequent determinations. ??Contact the Clinical Chemistry Laboratory if there are any questions. Chloride 101 98 - 107 mmol/L [facility] Carbon Dioxide 23 22 - 31 mmol/L [facility] Anion Gap 18(H) 5 - 15 mmol/L [facility] Calcium 9.3 8.5 - 10.5 mg/dL [facility] Est Glomerular Filtration Rate 98 >=60 mL/min/1. 73 m?? [facility] Comment: The eGFR was calculated using the CKD-EPI equation. As with all creatinine based estimates of kidney function, eGFR values calculated with the CKD-EPI equation are not accurate in patients with acute kidney failure, extremes of body mass or the acutely ill. http://SeeWhy/EventRegistnkdep http://SeeWhy/[facility]kf eGFR 114 >=60 mL/min/1. 73 m?? [facility] Comment: The eGFR was calculated using the CKD-EPI equation. As with all creatinine based estimates of kidney function, eGFR values calculated with the CKD-EPI equation are not accurate in patients with acute kidney failure, extremes of body mass or the acutely ill. http://SeeWhy/EventRegistnkdep http://SeeWhy/[facility]kf Blood specimen (specimen) 01/28/2018 8:26 AM EDT 01/28/2018 8:31 AM EDT Narrative Resulting Agency Comment Spec In Lab Noah Menard MD CHEMISTRY ORDERABLES Performing Organization Address [facility]/ZIP Co de Phone Number [facility] [place] [address] * (ABNORMAL) Electrolytes panel (01/27/2018 6:24 AM EDT) Sodium 149(H) 135 - 145 mmol/L [facility] Potassium 3.8 3.5 - 5.0 mmol/L [facility] Comment: Please note: ??Patients with WBC >100,000 may have falsely elevated Potassium levels. ??For accurate Potassium quantification in these patients send serum separator tube (gold top) for subsequent determinations. ??Contact the Clinical Chemistry Laboratory if there are any questions. Chloride 109(H) 98 - 107 mmol/L [facility] Carbon Dioxide 25 22 - 31 mmol/L [facility] Anion Gap 15 5 - 15 mmol/L [facility] Blood specimen (specimen) 01/27/2018 6:24 AM EDT 01/27/2018 6:39 AM EDT Narrative Resulting Agency Comment Spec In Lab Crista Aguilar MD CHEMISTRY ORDERABLE S Performing Organization Address [facility]/ZIP Co de Phone Number [facility] [place] [address] * T4, free (01/26/2018 6:13 AM EDT) Free T4 0.95 0.93 - 1.70 ng/dL [facility] Blood specimen (specimen) 01/26/2018 6:13 AM EDT 01/26/2018 6:24 AM EDT Narrative Resulting Agency Comment Spec In Lab Crista Aguilar MD CHEMISTRY ORDERABLE S Performing Organization Address City/[facility]/ZIP Co de Phone Number [facility] [place] [address] * (ABNORMAL) Electrolytes panel (01/25/2018 6:28 AM EDT) Sodium 145 135 - 145 mmol/L [facility] [...] 107 mmol/L [facility] Carbon Dioxide 25 22 - 31 mmol/L [facility] Anion Gap 16(H) 5 - 15 mmol/L [facility] Blood specimen (specimen) 01/25/2018 6:28 AM EDT 01/25/2018 6:41 AM EDT Narrative Resulting Agency Comment Spec In Lab Crista Aguilar MD CHEMISTRY ORDERABLE S [facility] [place] [address] * T4, free (01/23/2018 6:11 AM EDT) Free T4 0.94 0.93 - 1.70 ng/dL [facility] Blood specimen (specimen) Venous Draw / Unknown 01/23/2018 6:11 AM EDT 01/23/2018 6:42 AM EDT Narrative Resulting Agency Comment Spec In Lab Yadi Mccauley MD CHEMISTRY ORDERAB LES [facility] [place] [address] * (ABNORMAL) Electrolytes panel (01/23/2018 6:11 AM EDT) Sodium 144 135 - 145 mmol/L [facility] Potassium 3.9 3.5 - 5.0 mmol/L [facility] Comment: Please note: ??Patients with WBC >100,000 may have falsely elevated Potassium levels. ??For accurate Potassium quantification in these patients send serum separator tube (gold top) for subsequent determinations. ??Contact the Clinical Chemistry Laboratory if there are any questions. Chloride 106 98 - 107 mmol/L [facility] Carbon Dioxide 22 22 - 31 mmol/L [facility] Anion Gap 16(H) 5 - 15 mmol/L [facility] Blood specimen (specimen) 01/23/2018 6:11 AM EDT 01/23/2018 6:37 AM EDT Narrative Resulting Agency Comment Spec In Lab Crista Aguilar MD CHEMISTRY ORDERABLE S Performing Organization Address [facility]/ZIP Co de Phone Number [facility] [place] [address] * (ABNORMAL) Electrolytes panel (01/21/2018 4:34 AM EDT) Sodium 139 135 - 145 mmol/L [facility] Potassium 4.0 3.5 - 5.0 mmol/L [facility] Comment: Please note: ??Patients with WBC >100,000 may have falsely elevated Potassium levels. ??For accurate Potassium quantification in these patients send serum separator tube (gold top) for subsequent determinations. ??Contact the Clinical Chemistry Laboratory if there are any questions. Chloride 103 98 - 107 mmol/L [facility] Carbon Dioxide 20(L) 22 - 31 mmol/L [facility] Anion Gap 16(H) 5 - 15 mmol/L [facility] Blood specimen (specimen) 01/21/2018 4:34 AM EDT 01/21/2018 4:55 AM EDT Narrative Resulting Agency Comment Spec In Lab Crista Aguilar MD CHEMISTRY ORDERABLE S Performing Organization Address City/[facility]/ZIP Co de Phone Number [facility] [place] [address] * (ABNORMAL) Electrolytes panel (01/19/2018 7:21 AM EDT) Sodium 142 135 - 145 mmol/L [facility] Potassium 3.6 3.5 - 5.0 mmol/L [facility] Comment: Please note: ??Patients with WBC >100,000 may have falsely elevated Potassium levels. ??For accurate Potassium quantification in these patients send serum separator tube (gold top) for subsequent determinations. ??Contact the Clinical Chemistry Laboratory if there are any questions. Chloride 103 98 - 107 mmol/L [facility] Carbon Dioxide 23 22 - 31 mmol/L [facility] Anion Gap 16(H) 5 - 15 mmol/L [facility] Blood specimen (specimen) 01/19/2018 7:21 AM EDT 01/19/2018 7:26 AM EDT Narrative Resulting Agency Comment Spec In Lab Crista Aguilar MD CHEMISTRY ORDERABLE S [facility] [place] [address] * (ABNORMAL) Electrolytes panel (01/17/2018 5:17 AM EDT) Sodium 140 135 - 145 mmol/L [facility] Potassium 3.4(L) 3.5 - 5.0 mmol/L [facility] Comment: Please note: ??Patients with WBC >100,000 may have falsely elevated Potassium levels. ??For accurate Potassium quantification in these patients send serum separator tube (gold top) for subsequent determinations. ??Contact the Clinical Chemistry Laboratory if there are any questions. Chloride 102 98 - 107 mmol/L [facility] Carbon Dioxide 24 22 - 31 mmol/L [facility] Anion Gap 14 5 - 15 mmol/L [facility] Blood specimen (specimen) 01/17/2018 5:17 AM EDT 01/17/2018 5:31 AM EDT Narrative Resulting Agency Comment Spec In Lab Crista Aguilar MD CHEMISTRY ORDERABLE S Performing Organization Address City/[facility]/[place] [address] * (ABNORMAL) Differential, Automated (01/16/2018 5:02 AM EDT) Neutrophil % 40.0 % [facility] Neutrophil Absolute 2.01 1.70 - 6.10 x10(3)/mc L [facility] Lymph % 43.8 % [facility] Lymphocytes Abs 2.2 0.9 - 3.2 x10(3)/ L [facility] Monocyte % 10.2 % [facility] Monocyte Abs 0.5 0.3 - 0.9 x10(3)/ L [facility] Eos % 4.2 % [facility] Eosinophils Abs 0.2 0.0 - 0.4 x10(3)/ L [facility] Basophil % 0.8 % [facility] Baso Absolute 0.0 0.0 - 0.1 x10(3)/ L [facility] Immature Gran % 1.00 % [facility] Comment: Immature granulocytes(IG's)percentage and absolute count will include metamyelocytes, myelocytes, and promyelocytes. Blood smears from CBCs yielding IG's will be scanned manually for concordance. If this scan disagrees with the automated IG or if promyelocytes are noted, a manual differential will be performed. Immature Gran Absolute 0.05(H) 0.00 - 0.04 x10(3)/mc L [facility] Blood specimen (specimen) 01/16/2018 5:02 AM EDT 01/16/2018 5:21 AM EDT Narrative Resulting Agency Comment Spec In Lab Critsa Aguilar MD HEMATOLOGY ORDERABL ES Performing Organization Address City/[facility]/ZIP Co de Phone Number [facility] [place] [address] * (ABNORMAL) Hemogram (01/16/2018 5:02 AM EDT) [facility] White Blood Cell 5.0 4.0 - 9.5 x10(3)/[facility] Red Blood Cell 4.81 4.58 - 5.54 x10(6)/[facility] Hemoglobin 11.2(L) 13.7 - 16.5 gm/dL [facility] Hematocrit 35.5(L) 40.5 - 48.5 % [facility] Mean Cell Volume 73.8(L) 82.9 - 93.1 fL [facility] Mean Cell Hemoglobin 23.3(L) 27.5 - 32.1 pg [facility] Mean Cell Hemoglobin Concentration 31.5(L) 32.0 - 35.7 gm/dL [facility] Platelet 298 145 - 357 x10(3)/[facility] RDW Standard Deviation 45.8(H) 36.0 - 45.0 [facility] RDW coefficient of variation 17.2(H) 11.4 - 13.8 % [facility] Mean Platelet Volume 10.6 7.6 - 12.9 [facility] NRBC% auto 0.0 % [facility] NRBC Absolute 0.000 0.000 - 0.000 x10(3)/[facility] Blood specimen (specimen) 01/16/2018 5:02 AM EDT 01/16/2018 5:21 AM EDT Narrative Resulting Agency Comment Spec In Lab Crista Aguilar MD HEMATOLOGY ORDERABL ES [facility] [place] [address] * (ABNORMAL) Basic Metabolic Panel (non-fasting) (01/16/2018 5:02 AM EDT) Glucose 78 65 - 199 mg/dL [facility] Comment:Diabetes: >=200 mg/d L plus symptoms Blood Urea Nitrogen 17 10 - 20 mg/dL [facility] Creatinine 0.83 0.80 - 1.50 mg/dL [facility] Sodium 146(H) 135 - 145 mmol/L [facility] Potassium 3.7 3.5 - 5.0 mmol/L [facility] Comment: Please note: ??Patients with WBC >100,000 may have falsely elevated Potassium levels. ??For accurate Potassium quantification in these patients send serum separator tube (gold top) for subsequent determinations. ??Contact the Clinical Chemistry Laboratory if there are any questions. Chloride 108(H) 98 - 107 mmol/L [facility] Carbon Dioxide 23 22 - 31 mmol/L [facility] Anion Gap 15 5 - 15 mmol/L [facility] Calcium 10.1 8.5 - 10.5 mg/dL [facility] Est Glomerular Filtration Rate 121 >=60 mL/min/1. 73 m?? [facility] Comment: The eGFR was calculated using the CKD-EPI equation. As with all creatinine based estimates of kidney function, eGFR values calculated with the CKD-EPI equation are not accurate in patients with acute kidney failure, extremes of body mass or the acutely ill. http://SeeWhy/EventRegistnkdep http://SeeWhy/[facility]SAnkf eGFR 140 >=60 mL/min/1. 73 m?? [facility] Comment: The eGFR was calculated using the CKD-EPI equation. As with all creatinine based estimates of kidney function, eGFR values calculated with the CKD-EPI equation are not accurate in patients with acute kidney failure, extremes of body mass or the acutely ill. http://SeeWhy/EventRegistnkdep http://SeeWhy/[facility]kf Blood specimen (specimen) 01/16/2018 5:02 AM EDT 01/16/2018 5:21 AM EDT Narrative Resulting Agency Comment Spec In Lab Crista A Jeff MD CHEMISTRY ORDERABLE S Performing Organization Address [facility] Co de Phone Number [facility] [place] [address] * (ABNORMAL) Electrolytes panel (01/15/2018 6:12 AM EDT) Sodium 148(H) 135 - 145 mmol/L [facility] Potassium Not Perf 3.5 - 5.0 [facility] Comment: Unable to quantitate due [...] questions. Chloride 110(H) 98 - 107 mmol/L [facility] Carbon Dioxide 23 22 - 31 mmol/L [facility] Anion Gap 15 5 - 15 mmol/L [facility] Blood specimen (specimen) 01/15/2018 6:12 AM EDT 01/15/2018 6:26 AM EDT Narrative Resulting Agency Comment Spec In Lab Crista Aguilar MD CHEMISTRY ORDERABLE S Performing Organization Address [facility] Co de Phone Number [facility] [place] [address] * Electrolytes panel (01/13/2018 6:23 AM EDT) Sodium 142 135 - 145 mmol/L [facility] Potassium 3.6 3.5 - 5.0 mmol/L [facility] Comment: Please note: ??Patients with WBC >100,000 may have falsely elevated Potassium levels. ??For accurate Potassium quantification in these patients send serum separator tube (gold top) for subsequent determinations. ??Contact the Clinical Chemistry Laboratory if there are any questions. Chloride 106 98 - 107 mmol/L [facility] Carbon Dioxide 23 22 - 31 mmol/L [facility] Anion Gap 13 5 - 15 mmol/L [facility] Blood specimen (specimen) 01/13/2018 6:23 AM EDT 01/13/2018 6:32 AM EDT Narrative Resulting Agency Comment Spec In Lab Maldonado Salazar MD CHEMISTRY ORDERABLES Performing Organization Address City/[facility]/ZIP Co de Phone Number [facility] [place] [address] * T3 Total (01/12/2018 7:53 AM EDT) T3 Total 97 75 - 170 ng/dL [facility] Blood specimen (specimen) Venous Draw / Unknown 01/12/2018 7:53 AM EDT 01/12/2018 9:37 AM EDT Narrative Resulting Agency Comment Spec In Lab Guerrero Tillman MD CHEMISTRY ORDE RABLES Performing Organization Address City/[facility]/ZIP Co de Phone Number [facility] [place] [address] * (ABNORMAL) Electrolytes panel (01/12/2018 7:53 AM EDT) Pathologist [facility] Sodium 143 135 - 145 mmol/L [facility] Potassium 3.7 3.5 - 5.0 mmol/L [facility] Comment: Please note: ??Patients with WBC >100,000 may have falsely elevated Potassium levels. ??For accurate Potassium quantification in these patients send serum separator tube (gold top) for subsequent determinations. ??Contact the Clinical Chemistry Laboratory if there are any questions. Chloride 102 98 - 107 mmol/L [facility] Carbon Dioxide 23 22 - 31 mmol/L [facility] Anion Gap 18(H) 5 - 15 mmol/L [facility] Blood specimen (specimen) 01/12/2018 7:53 AM EDT 01/12/2018 8:10 AM EDT Narrative Resulting Agency Comment Spec In Lab Maldonado Salazar MD CHEMISTRY ORDERABLES Performing Organization Address [facility] Co de Phone Number [facility] [place] [address] * (ABNORMAL) Electrolytes panel (01/11/2018 7:22 AM EDT) Sodium 141 135 - 145 mmol/L [facility] Potassium 3.7 3.5 - 5.0 mmol/L [facility] Comment: Please note: ??Patients with WBC >100,000 may have falsely elevated Potassium levels. ??For accurate Potassium quantification in these patients send serum separator tube (gold top) for subsequent determinations. ??Contact the Clinical Chemistry Laboratory if there are any questions. Chloride 101 98 - 107 mmol/L [facility] Comment:result rechecked-sb Carbon Dioxide 24 22 - 31 mmol/L [facility] Anion Gap 16(H) 5 - 15 mmol/L [facility] Blood specimen (specimen) 01/11/2018 7:22 AM EDT 01/11/2018 7:31 AM EDT Narrative Resulting Agency Comment Spec In Lab Maldonado Salazar MD CHEMISTRY ORDERABLES Performing Organization Address [facility] Co de Phone Number [facility] [place] [address] * (ABNORMAL) T4, free (01/11/2018 7:22 AM EDT) Free T4 0.74(L) 0.93 - 1.70 ng/dL [facility] Blood specimen (specimen) 01/11/2018 7:22 AM EDT 01/11/2018 7:31 AM EDT Narrative Resulting Agency Comment Spec In Lab Crista Aguilar MD CHEMISTRY ORDERABLE S Performing Organization Address City/[facility]/ZIP Co de Phone Number [facility] [place] [address] * (ABNORMAL) Electrolytes panel (01/10/2018 5:10 AM EDT) Sodium 148(H) 135 - 145 mmol/L [facility] Potassium 3.7 3.5 - 5.0 mmol/L [facility] Comment: Please note: ??Patients with WBC >100,000 may have falsely elevated Potassium levels. ??For accurate Potassium quantification in these patients send serum separator tube (gold top) for subsequent determinations. ??Contact the Clinical Chemistry Laboratory if there are any questions. Chloride 106 98 - 107 mmol/L [facility] Carbon Dioxide 24 22 - 31 mmol/L [facility] Anion Gap 18(H) 5 - 15 mmol/L [facility] Blood specimen (specimen) 01/10/2018 5:10 AM EDT 01/10/2018 5:15 AM EDT Narrative Resulting Agency Comment Spec In Lab Maldonado Salazar MD CHEMISTRY ORDERABLES [facility] [place] [address] * (ABNORMAL) Electrolytes panel (01/09/2018 5:06 AM EDT) Sodium 149(H) 135 - 145 mmol/L [facility] Potassium 3.8 3.5 - 5.0 mmol/L [facility] Comment: Please note: ??Patients with WBC >100,000 may have falsely elevated Potassium levels. ??For accurate Potassium quantification in these patients send serum separator tube (gold top) for subsequent determinations. ??Contact the Clinical Chemistry Laboratory if there are any questions. Chloride 110(H) 98 - 107 mmol/L [facility] Carbon Dioxide 25 22 - 31 mmol/L [facility] Anion Gap 14 5 - 15 mmol/L [facility] Blood specimen (specimen) 01/09/2018 5:06 AM EDT 01/09/2018 5:24 AM EDT Narrative Resulting Agency Comment Spec In Lab Maldonado Salazar MD CHEMISTRY ORDERABLES Performing Organization Address [facility] Co de Phone Number [facility] [place] [address] * (ABNORMAL) Electrolytes panel (01/08/2018 6:07 AM EDT) Sodium 149(H) 135 - 145 mmol/L [facility] Potassium 3.7 3.5 - 5.0 mmol/L [facility] Comment: Please note: ??Patients with WBC >100,000 may have falsely elevated Potassium levels. ??For accurate Potassium quantification in these patients send serum separator tube (gold top) for subsequent determinations. ??Contact the Clinical Chemistry Laboratory if there are any questions. Chloride 111(H) 98 - 107 mmol/L [facility] Carbon Dioxide 24 22 - 31 mmol/L [facility] Anion Gap 14 5 - 15 mmol/L [facility] Blood specimen (specimen) 01/08/2018 6:07 AM EDT 01/08/2018 6:14 AM EDT Narrative Resulting Agency Comment Spec In Lab Maldonado Salazar MD CHEMISTRY ORDERABLES Performing Organization Address [facility] Co de Phone Number [facility] [place] [address] * (ABNORMAL) Electrolytes panel (01/07/2018 7:01 AM EDT) Sodium 148(H) 135 - 145 mmol/L [facility] Comment:Specimen ultracentri fuged due to gross lipemia Potassium Not Perf 3.5 - 5.0 [facility] Comment: Unable to quantitate due to sample hemolysis. ??Sample redraw suggested. Called Hafsa 01/07/18 08:35 ms Please note: ??Patients with WBC >100,000 may have falsely elevated Potassium levels. ??For accurate Potassium quantification in these patients send serum separator tube (gold top) for subsequent determinations. ??Contact the Clinical Chemistry Laboratory if there are any questions. Chloride 112(H) 98 - 107 mmol/L [facility] Comment:Specimen ultracentri fuged due to gross lipemia Carbon Dioxide 26 22 - 31 mmol/L [facility] Anion Gap 10 5 - 15 mmol/L [facility] Blood specimen (specimen) 01/07/2018 7:01 AM EDT 01/07/2018 7:16 AM EDT Narrative Resulting Agency Comment Spec In Lab Maldonado Salazar MD CHEMISTRY ORDERABLES Performing Organization Address [facility] Co de Phone Number [facility] [place] [address] * (ABNORMAL) Electrolytes panel (01/06/2018 11:21 PM EDT) Sodium 148(H) 135 - 145 mmol/L [facility] Potassium Not Perf 3.5 - 5.0 [facility] Comment: Specimen hemolyzed. Called by: [facility], Read back by: Denisse Lebron, Date/Time:01/07/18 00:15. Please note: ??Patients with WBC >100,000 may have falsely elevated Potassium levels. ??For accurate Potassium quantification in these patients send serum separator tube (gold top) for subsequent determinations. ??Contact the Clinical Chemistry Laboratory if there are any questions. Chloride 109(H) 98 - 107 mmol/L [facility] Carbon Dioxide 24 22 - 31 mmol/L [facility] Anion Gap 15 5 - 15 mmol/L [facility] Blood specimen (specimen) 01/06/2018 11:21 PM EDT 01/06/2018 11:34 PM EDT Narrative Resulting Agency Comment Spec In Lab Maldonado Salazar MD CHEMISTRY ORDERABLES Performing Organization Address [facility] Co de Phone Number [facility] [place] [address] * (ABNORMAL) Electrolytes panel (01/06/2018 6:47 AM EDT) Sodium 149(H) 135 - 145 mmol/L [facility] Potassium Not Perf 3.5 - 5.0 [facility] Comment: Called by: [facility], Read back by: Sarika Michael, Date/Time:01/06/18 08:08. Please note: ??Patients with WBC >100,000 may have falsely elevated Potassium levels. ??For accurate Potassium quantification in these patients send serum separator tube (gold top) for subsequent determinations. ??Contact the Clinical Chemistry Laboratory if there are any questions. Chloride 110(H) 98 - 107 mmol/L [facility] Carbon Dioxide 23 22 - 31 mmol/L [facility] Anion Gap 16(H) 5 - 15 mmol/L [facility] Blood specimen (specimen) 01/06/2018 6:47 AM EDT 01/06/2018 7:10 AM EDT Narrative Resulting Agency Comment Spec In Lab Maldonado Salazar MD CHEMISTRY ORDERABLES [facility] [place] [address] * (ABNORMAL) Electrolytes panel (01/05/2018 5:48 PM EDT) Sodium 146(H) 135 - 145 mmol/L [facility] Potassium 4.0 3.5 - 5.0 mmol/L [facility] Comment: Please note: ??Patients with WBC >100,000 may have falsely elevated Potassium levels. ??For accurate Potassium quantification in these patients send serum separator tube (gold top) for subsequent determinations. ??Contact the Clinical Chemistry Laboratory if there are any questions. Chloride 107 98 - 107 mmol/L [facility] Carbon Dioxide 22 22 - 31 mmol/L [facility] Anion Gap 17(H) 5 - 15 mmol/L [facility] Blood specimen (specimen) 01/05/2018 5:48 PM EDT 01/05/2018 6:03 PM EDT Narrative Resulting Agency Comment Spec In Lab Maldonado Salazar MD CHEMISTRY ORDERABLES Performing Organization Address [facility] Co de Phone Number [facility] [place] [address] * (ABNORMAL) Electrolytes panel (01/05/2018 5:38 AM EDT) Sodium 151(H) 135 - 145 mmol/L [facility] Comment:result rechecked-jt Potassium 3.5 3.5 - 5.0 mmol/L [facility] Comment: Please note: ??Patients with WBC >100,000 may have falsely elevated Potassium levels. ??For accurate Potassium quantification in these patients send serum separator tube (gold top) for subsequent determinations. ??Contact the Clinical Chemistry Laboratory if there are any questions. Chloride 114(H) 98 - 107 mmol/L [facility] Comment:result rechecked-jt Carbon Dioxide 23 22 - 31 mmol/L [facility] Anion Gap 14 5 - 15 mmol/L [facility] Blood specimen (specimen) 01/05/2018 5:38 AM EDT 01/05/2018 5:56 AM EDT Narrative Resulting Agency Comment Spec In Lab Maldonado Salazar MD CHEMISTRY ORDERABLES Performing Organization Address [facility] Co de Phone Number [facility] [place] [address] * (ABNORMAL) Electrolytes panel (01/04/2018 7:08 AM EDT) Sodium 146(H) 135 - 145 mmol/L [facility] Comment:Specimen ultracentri fuged due to gross lipemia Potassium 3.2(L) 3.5 - 5.0 mmol/L [facility] Comment: Please note: ??Patients with WBC >100,000 may have falsely elevated Potassium levels. ??For accurate Potassium quantification in these patients send serum separator tube (gold top) for subsequent determinations. ??Contact the Clinical Chemistry Laboratory if there are any questions. Chloride 102 98 - 107 mmol/L [facility] Carbon Dioxide 25 22 - 31 mmol/L [facility] Anion Gap 19(H) 5 - 15 mmol/L [facility] Blood specimen (specimen) 01/04/2018 7:08 AM EDT 01/04/2018 7:16 AM EDT Narrative Resulting Agency Comment Spec In Lab Sherri Hanson MD CHEMISTRY ORDERABL ES Performing Organization Address [facility] Co de Phone Number [facility] [place] [address] * Electrolytes panel (01/04/2018 3:14 AM EDT) Sodium 140 135 - 145 mmol/L [facility] Potassium 3.6 3.5 - 5.0 mmol/L [facility] Comment: Please note: ??Patients with WBC >100,000 may have falsely elevated Potassium levels. ??For accurate Potassium quantification in these patients send serum separator tube (gold top) for subsequent determinations. ??Contact the Clinical Chemistry Laboratory if there are any questions. Chloride 103 98 - 107 mmol/L [facility] Carbon Dioxide 23 22 - 31 mmol/L [facility] Anion Gap 14 5 - 15 mmol/L [facility] Blood specimen (specimen) 01/04/2018 3:14 AM EDT 01/04/2018 3:19 AM EDT Narrative Resulting Agency Comment Spec In Lab Sherri Hanson MD CHEMISTRY ORDERABL ES Performing Organization Address [facility]/ZIP Co de Phone Number [facility] [place] [address] * (ABNORMAL) Electrolytes panel (01/03/2018 10:48 PM EDT) Sodium 142 135 - 145 mmol/L [facility] Potassium 3.4(L) 3.5 - 5.0 mmol/L [facility] Comment: Please note: ??Patients with WBC >100,000 may have falsely elevated Potassium levels. ??For accurate Potassium quantification in these patients send serum separator tube (gold top) for subsequent determinations. ??Contact the Clinical Chemistry Laboratory if there are any questions. Chloride 102 98 - 107 mmol/L [facility] Carbon Dioxide 25 22 - 31 mmol/L [facility] Anion Gap 15 5 - 15 mmol/L [facility] Blood specimen (specimen) 01/03/2018 10:48 PM EDT 01/03/2018 11:09 PM EDT Narrative Resulting Agency Comment Spec In Lab Sherri Hanson MD CHEMISTRY ORDERABL ES Performing Organization Address [facility] Co de Phone Number [facility] [place] [address] * (ABNORMAL) Electrolytes panel (01/03/2018 1:32 PM EDT) Sodium 139 135 - 145 mmol/L [facility] Potassium 3.8 3.5 - 5.0 mmol/L [facility] Comment: Please note: ??Patients with WBC >100,000 may have falsely elevated Potassium levels. ??For accurate Potassium quantification in these patients send serum separator tube (gold top) for subsequent determinations. ??Contact the Clinical Chemistry Laboratory if there are any questions. Chloride 97(L) 98 - 107 mmol/L [facility] Carbon Dioxide 25 22 - 31 mmol/L [facility] Anion Gap 17(H) 5 - 15 mmol/L [facility] Blood specimen (specimen) 01/03/2018 1:32 PM EDT 01/03/2018 1:37 PM EDT Narrative Resulting Agency Comment Spec In Lab Maldonado Salazar MD CHEMISTRY ORDERABLES Performing Organization Address [facility]/ZIP Co de Phone Number [facility] [place] [address] * (ABNORMAL) Electrolytes panel (01/03/2018 8:38 AM EDT) Sodium 145 135 - 145 mmol/L [facility] Potassium 3.7 3.5 - 5.0 mmol/L [facility] Comment: Please note: ??Patients with WBC >100,000 may have falsely elevated Potassium levels. ??For accurate Potassium quantification in these patients send serum separator tube (gold top) for subsequent determinations. ??Contact the Clinical Chemistry Laboratory if there are any questions. Chloride 105 98 - 107 mmol/L [facility] Carbon Dioxide 23 22 - 31 mmol/L [facility] Anion Gap 17(H) 5 - 15 mmol/L [facility] Blood specimen (specimen) 01/03/2018 8:38 AM EDT 01/03/2018 8:56 AM EDT Narrative Resulting Agency Comment Spec In Lab Fran Gilliam MD CHEMISTRY ORDERABL ES Performing Organization Address [facility] [place] [address] * (ABNORMAL) Electrolytes panel (01/02/2018 8:55 AM EDT) Sodium 155(H) 135 - 145 mmol/L [facility] Potassium 3.8 3.5 - 5.0 mmol/L [facility] Comment: Please note: ??Patients with WBC >100,000 may have falsely elevated Potassium levels. ??For accurate Potassium quantification in these patients send serum separator tube (gold top) for subsequent determinations. ??Contact the Clinical Chemistry Laboratory if there are any questions. Chloride 113(H) 98 - 107 mmol/L [facility] Carbon Dioxide 27 22 - 31 mmol/L [facility] Anion Gap 15 5 - 15 mmol/L [facility] Blood specimen (specimen) 01/02/2018 8:55 AM EDT 01/02/2018 9:04 AM EDT Narrative Resulting Agency Comment Spec In Lab Fran Gilliam MD CHEMISTRY ORDERABL ES Performing Organization Address [facility]/ZIP Co de Phone Number [facility] [place] [address] * (ABNORMAL) Electrolytes panel (12/30/2017 8:24 AM EDT) Sodium 147(H) 135 - 145 mmol/L [facility] Potassium 3.9 3.5 - 5.0 mmol/L [facility] Comment: Please note: ??Patients with WBC >100,000 may have falsely elevated Potassium levels. ??For accurate Potassium quantification in these patients send serum separator tube (gold top) for subsequent determinations. ??Contact the Clinical Chemistry Laboratory if there are any questions. Chloride 108(H) 98 - 107 mmol/L [facility] Carbon Dioxide 25 22 - 31 mmol/L [facility] Anion Gap 14 5 - 15 mmol/L [facility] Blood specimen (specimen) 12/30/2017 8:24 AM EDT 12/30/2017 8:37 AM EDT Narrative Resulting Agency Comment Spec In Lab Fran Gilliam MD CHEMISTRY ORDERABL ES [facility] [place] [address] * (ABNORMAL) Electrolytes panel (12/29/2017 3:57 AM EDT) Sodium 142 135 - 145 mmol/L [facility] Potassium 4.1 3.5 - 5.0 mmol/L [facility] Comment: Please note: ??Patients with WBC >100,000 may have falsely elevated Potassium levels. ??For accurate Potassium quantification in these patients send serum separator tube (gold top) for subsequent determinations. ??Contact the Clinical Chemistry Laboratory if there are any questions. Chloride 103 98 - 107 mmol/L [facility] Carbon Dioxide 22 22 - 31 mmol/L [facility] Anion Gap 17(H) 5 - 15 mmol/L [facility] Blood specimen (specimen) 12/29/2017 3:57 AM EDT 12/29/2017 4:03 AM EDT Narrative Resulting Agency Comment Spec In Lab Fran Gilliam MD CHEMISTRY ORDERABL ES Performing Organization Address [facility] Co de Phone Number [facility] [place] [address] * (ABNORMAL) Electrolytes panel (12/28/2017 8:27 PM EDT) Sodium 145 135 - 145 mmol/L [facility] Comment:Specimen ultracentri fuged due to gross lipemia Potassium 4.2 3.5 - 5.0 mmol/L [facility] Comment: Please note: ??Patients with WBC >100,000 may have falsely elevated Potassium levels. ??For accurate Potassium quantification in these patients send serum separator tube (gold top) for subsequent determinations. ??Contact the Clinical Chemistry Laboratory if there are any questions. Chloride 104 98 - 107 mmol/L [facility] Carbon Dioxide 24 22 - 31 mmol/L [facility] Anion Gap 17(H) 5 - 15 mmol/L [facility] Blood specimen (specimen) 12/28/2017 8:27 PM EDT 12/28/2017 8:32 PM EDT Narrative Resulting Agency Comment Spec In Lab Fran Gilliam MD CHEMISTRY ORDERABL ES Performing Organization Address [facility] Co de Phone Number [facility] [place] [address] * (ABNORMAL) Electrolytes panel (12/28/2017 5:08 AM EDT) Sodium 148(H) 135 - 145 mmol/L [facility] Potassium 3.9 3.5 - 5.0 mmol/L [facility] Comment: Please note: ??Patients with WBC >100,000 may have falsely elevated Potassium levels. ??For accurate Potassium quantification in these patients send serum separator tube (gold top) for subsequent determinations. ??Contact the Clinical Chemistry Laboratory if there are any questions. Chloride 105 98 - 107 mmol/L [facility] Carbon Dioxide 25 22 - 31 mmol/L [facility] Anion Gap 18(H) 5 - 15 mmol/L [facility] Blood specimen (specimen) 12/28/2017 5:08 AM EDT 12/28/2017 5:26 AM EDT Narrative Resulting Agency Comment Spec In Lab Fran Gilliam MD CHEMISTRY ORDERABL ES [facility] [place] [address] * (ABNORMAL) Basic Metabolic Panel (non-fasting) (12/28/2017 12:04 AM EDT) Glucose 114 65 - 199 mg/dL [facility] Comment:Diabetes: >=200 mg/d L plus symptoms Blood Urea Nitrogen 22(H) 10 - 20 mg/dL [facility] Creatinine 0.90 0.80 - 1.50 mg/dL [facility] Sodium 146(H) 135 - 145 mmol/L [facility] Comment:result rechecked-jt Potassium 3.6 3.5 - 5.0 mmol/L [facility] Comment: Please note: ??Patients with WBC >100,000 may have falsely elevated Potassium levels. ??For accurate Potassium quantification in these patients send serum separator tube (gold top) for subsequent determinations. ??Contact the Clinical Chemistry Laboratory if there are any questions. Chloride 104 98 - 107 mmol/L [facility] Comment:result rechecked-jt Carbon Dioxide 25 22 - 31 mmol/L [facility] Anion Gap 17(H) 5 - 15 mmol/L [facility] Calcium 9.4 8.5 - 10.5 mg/dL [facility] Est Glomerular Filtration Rate 117 >=60 mL/min/1. 73 m?? [facility] Comment: The eGFR was calculated using the CKD-EPI equation. As with all creatinine based estimates of kidney function, eGFR values calculated with the CKD-EPI equation are not accurate in patients with acute kidney failure, extremes of body mass or the acutely ill. http://SeeWhy/DHnkdep http://SeeWhy/[facility] TULSAnkf eGFR 135 >=60 mL/min/1. 73 m?? [facility] Comment: The eGFR was calculated using the CKD-EPI equation. As with all creatinine based estimates of kidney function, eGFR values calculated with the CKD-EPI equation are not accurate in patients with acute kidney failure, extremes of body mass or the acutely ill. http://SeeWhy/DHnkdep http://SeeWhy/[facility] TULSAnkf Blood specimen (specimen) 12/28/2017 12:04 AM EDT 12/28/2017 12:10 AM EDT Narrative Resulting Agency Comment Spec In Lab Fran Gilliam MD CHEMISTRY ORDERABL ES Performing Organization Address [facility] Co de Phone Number [facility] [place] [address] * (ABNORMAL) Sodium (12/26/2017 10:23 PM EDT) Sodium 147(H) 135 - 145 mmol/L [facility] Blood specimen (specimen) 12/26/2017 10:23 PM EDT 12/26/2017 10:29 PM EDT Narrative Resulting Agency Comment Spec In Lab José Miguel Maher MD CHEMISTRY ORDERABLES Performing Organization Address [facility] Co de Phone Number [facility] [place] [address] * (ABNORMAL) Sodium (12/26/2017 10:03 AM EDT) Sodium 155(H) 135 - 145 mmol/L [facility] Blood specimen (specimen) 12/26/2017 10:03 AM EDT 12/26/2017 10:11 AM EDT Narrative Resulting Agency Comment Spec In Lab José Miguel Maher MD CHEMISTRY ORDERABLES [facility] [place] [address] * (ABNORMAL) Sodium (12/26/2017 5:11 AM EDT) Sodium 154(H) 135 - 145 mmol/L [facility] Blood specimen (specimen) 12/26/2017 5:11 AM EDT 12/26/2017 5:19 AM EDT Narrative Resulting Agency Comment Spec In Lab José Miguel Maher MD CHEMISTRY ORDERABLES Performing Organization Address City/[facility]/ZIP Co de Phone Number [facility] [place] [address] * XR Knee 3 Views Right (12/25/2017 [...] 5:50 AM EDT) Neutrophil % 43.3 % [facility] Neutrophil Absolute 2.14 1.70 - 6.10 x10(3)/mcL [facility] Lymph % 38.7 % [facility] Lymphocytes Abs 1.9 0.9 - 3.2 x10(3)/[facility] Monocyte % 9.3 % [facility] Monocyte Abs 0.5 0.3 - 0.9 x10(3)/[facility] Eos % 7.7 % [facility] Eosinophils Abs 0.4 0.0 - 0.4 x10(3)/[facility] Basophil % 0.6 % [facility] Baso Absolute 0.0 0.0 - 0.1 x10(3)/[facility] Immature Gran % 0.40 % [facility] Comment: Immature granulocytes(IG's)percentage and absolute count will include metamyelocytes, myelocytes, and promyelocytes. Blood smears from CBCs yielding IG's will be scanned manually for concordance. If this scan disagrees with the automated IG or if promyelocytes are noted, a manual differential will be performed. Immature Gran Absolute 0.02 0.00 - 0.04 x10(3)/[facility] Blood specimen (specimen) 12/25/2017 5:50 AM EDT 12/25/2017 6:08 AM EDT Narrative Resulting Agency Comment Spec In Lab José Miguel Maher MD HEMATOLOGY ORDERABLE S Performing Organization Address City/State/[facility] Co de Phone Number [facility] [place] [address] * (ABNORMAL) Hemogram (12/25/2017 5:50 AM EDT) White Blood Cell 4.9 4.0 - 9.5 x10(3)/[facility] Red Blood Cell 4.84 4.58 - 5.54 x10(6)/[facility] Hemoglobin 11.9(L) 13.7 - 16.5 gm/dL [facility] Hematocrit 36.4(L) 40.5 - 48.5 % [facility] Mean Cell Volume 75.2(L) 82.9 - 93.1 fL [facility] Mean Cell Hemoglobin 24.6(L) 27.5 - 32.1 pg [facility] Mean Cell Hemoglobin Concentration 32.7 32.0 - 35.7 gm/dL [facility] Platelet 313 145 - 357 x10(3)/mc L [facility] RDW Standard Deviation 45.6(H) 36.0 - 45.0 fL [facility] RDW coefficient of variation 17.0(H) 11.4 - 13.8 % [facility] Mean Platelet Volume 9.6 7.6 - 12.9 [facility] NRBC% auto 0.0 % [facility] NRBC Absolute 0.000 0.000 - 0.000 x10(3)/mc L [facility] Blood specimen (specimen) 12/25/2017 5:50 AM EDT 12/25/2017 6:08 AM EDT Narrative Resulting Agency Comment Spec In Lab José Miguel Maher MD HEMATOLOGY ORDERABLE S [facility] [place] [address] * (ABNORMAL) Basic Metabolic Panel (non-fasting) (12/25/2017 5:50 AM EDT) Glucose 107 65 - 199 mg/dL [facility] Comment:Diabetes: >=200 mg/d L plus symptoms Blood Urea Nitrogen 14 10 - 20 mg/dL [facility] Creatinine 0.63(L) 0.80 - 1.50 mg/dL [facility] Sodium 149(H) 135 - 145 mmol/L [facility] Potassium 3.6 3.5 - 5.0 mmol/L [facility] Comment: Please note: ??Patients with WBC >100,000 may have falsely elevated Potassium levels. ??For accurate Potassium quantification in these patients send serum separator tube (gold top) for subsequent determinations. ??Contact the Clinical Chemistry Laboratory if there are any questions. Chloride 108(H) 98 - 107 mmol/L [facility] Carbon Dioxide 25 22 - 31 mmol/L [facility] Anion Gap 16(H) 5 - 15 mmol/L [facility] Calcium 9.9 8.5 - 10.5 mg/dL [facility] Est Glomerular Filtration Rate 135 >=60 mL/min/1. 73 m?? [facility] Comment: The eGFR was calculated using the CKD-EPI equation. As with all creatinine based estimates of kidney function, eGFR values calculated with the CKD-EPI equation are not accurate in patients with acute kidney failure, extremes of body mass or the acutely ill. http://SeeWhy/EventRegistnkdep http://SeeWhy/DHMCnkf eGFR 157 >=60 mL/min/1. 73 m?? [facility] Comment: The eGFR was calculated using the CKD-EPI equation. As with all creatinine based estimates of kidney function, eGFR values calculated with the CKD-EPI equation are not accurate in patients with acute kidney failure, extremes of body mass or the acutely ill. http://SeeWhy/DHnkdep http://SeeWhy/DHMCnkf Blood specimen (specimen) 12/25/2017 5:50 AM EDT 12/25/2017 6:08 AM EDT Narrative Resulting Agency Comment Spec In Lab José Miguel Maher MD CHEMISTRY ORDERABLES [facility] [place] [address] * (ABNORMAL) Sodium (12/24/2017 12:19 AM EDT) Sodium 147(H) 135 - 145 mmol/L [facility] Blood specimen (specimen) 12/24/2017 12:19 AM EDT 12/24/2017 12:29 AM EDT Narrative Resulting Agency Comment Spec In Lab José Miguel Maher MD CHEMISTRY ORDERABLES Performing Organization Address City/[facility]/[place] [address] * (ABNORMAL) Differential, Automated (12/23/2017 6:41 AM EDT) Neutrophil % 40.1 % [facility] Neutrophil Absolute 1.93 1.70 - 6.10 x10(3)/mc L [facility] Lymph % 39.4 % [facility] Lymphocytes Abs 1.9 0.9 - 3.2 x10(3)/ L [facility] Monocyte % 11.6 % [facility] Monocyte Abs 0.6 0.3 - 0.9 x10(3)/ L [facility] Eos % 7.1 % [facility] Eosinophils Abs 0.3 0.0 - 0.4 x10(3)/ L [facility] Basophil % 0.8 % [facility] Baso Absolute 0.0 0.0 - 0.1 x10(3)/ L [facility] Immature Gran % 1.00 % [facility] Comment: Immature granulocytes(IG's)percentage and absolute count will include metamyelocytes, myelocytes, and promyelocytes. Blood smears from CBCs yielding IG's will be scanned manually for concordance. If this scan disagrees with the automated IG or if promyelocytes are noted, a manual differential will be performed. Immature Gran Absolute 0.05(H) 0.00 - 0.04 x10(3)/mc L [facility] Blood specimen (specimen) 12/23/2017 6:41 AM EDT 12/23/2017 6:48 AM EDT Narrative Resulting Agency Comment Spec In Lab José Miguel Maher MD HEMATOLOGY ORDERABLE S Performing Organization Address City/[facility]/ZIP Co de Phone Number [facility] [place] [address] * (ABNORMAL) Hemogram (12/23/2017 6:41 AM EDT) [facility] White Blood Cell 4.8 4.0 - 9.5 x10(3)/[facility] Red Blood Cell 4.62 4.58 - 5.54 x10(6)/[facility] Hemoglobin 10.6(L) 13.7 - 16.5 gm/dL [facility] Hematocrit 34.7(L) 40.5 - 48.5 % [facility] Mean Cell Volume 75.1(L) 82.9 - 93.1 [facility] Mean Cell Hemoglobin 22.9(L) 27.5 - 32.1 pg [facility] Mean Cell Hemoglobin Concentration 30.5(L) 32.0 - 35.7 gm/dL [facility] HOSPITAL LABORATORY Platelet 286 145 - 357 x10(3)/[facility] LABORATORY RDW Standard Deviation 45.8(H) 36.0 - 45.0 [facility] LABORATORY RDW coefficient of variation 17.0(H) 11.4 - 13.8 % [facility] Mean Platelet Volume 9.9 7.6 - 12.9 [facility] LABORATORY NRBC% auto 0.0 % [facility] LABORAT[facility] NRBC Absolute 0.000 0.000 - 0.000 x10(3)/[facility] LABORATORY Blood specimen (specimen) 12/23/2017 6:41 AM EDT 12/23/2017 6:48 AM EDT Narrative Resulting Agency Comment Spec In Lab José Miguel Maher MD HEMATOLOGY ORDERABLE S [facility] [place] [address] * (ABNORMAL) Basic Metabolic Panel (non-fasting) (12/23/2017 6:41 AM EDT) [facility] Glucose 87 65 - 199 mg/dL [facility] Comment:Diabetes: >=200 mg/d L plus symptoms Blood Urea Nitrogen 14 10 - 20 mg/dL [facility] Creatinine 0.61(L) 0.80 - 1.50 mg/dL [facility] Sodium 149(H) 135 - 145 mmol/L [facility] Potassium 4.0 3.5 - 5.0 mmol/L [facility] Comment: Please note: ??Patients with WBC >100,000 may have falsely elevated Potassium levels. ??For accurate Potassium quantification in these patients send serum separator tube ([facility] top) for subsequent determinations. ??Contact the Clinical Chemistry Laboratory if there are any questions. Chloride 111(H) 98 - 107 mmol/L [facility] Carbon Dioxide 24 22 - 31 mmol/L [facility] Anion Gap 14 5 - 15 mmol/L [facility] Calcium 9.6 8.5 - 10.5 mg/dL [facility] Est Glomerular Filtration Rate 137 >=60 mL/min/1. 73 m?? [facility] Comment: The eGFR was calculated using the CKD-EPI equation. As with all creatinine based estimates of kidney function, eGFR values calculated with the CKD-EPI equation are not accurate in patients with acute kidney failure, extremes of body mass or the acutely ill. http://SeeWhy/EventRegistnkdep http://SeeWhy/MCnkf eGFR 159 >=60 mL/min/1. 73 m?? [facility] Comment: The eGFR was calculated using the CKD-EPI equation. As with all creatinine based estimates of kidney function, eGFR values calculated with the CKD-EPI equation are not accurate in patients with acute kidney failure, extremes of body mass or the acutely ill. http://SeeWhy/DHnkdep http://SeeWhy/DHMCnkf Blood specimen (specimen) 12/23/2017 6:41 AM EDT 12/23/2017 6:48 AM EDT Narrative Resulting Agency Comment Spec In Lab José Miguel Maher MD CHEMISTRY ORDERABLES Performing Organization Address City/[facility]/ZIP Co de Phone Number [facility] [place] [address] * Sodium (12/21/2017 8:00 PM EDT) Pathologist [facility] Sodium 143 135 - 145 mmol/L [facility] Blood specimen (specimen) 12/21/2017 8:00 PM EDT 12/21/2017 8:06 PM EDT Narrative Resulting Agency Comment Spec In Lab José Miguel Maher MD CHEMISTRY ORDERABLES Performing Organization Address [facility] Co de Phone Number [facility] [place] [address] * Scan, Peripheral Blood (12/21/2017 10:18 AM EDT) Pathologist [facility] Plat estimate Normal [facility] RBC Morphology Abnormal [facility] Microcyte gtr than 10 /HPF [facility] Tear Cell 1-5 /HPF [facility] Blood specimen (specimen) 12/21/2017 10:18 AM EDT 12/21/2017 10:38 AM EDT Narrative Resulting Agency Comment Spec In Lab José Miguel Maher MD HEMATOLOGY ORDERABLE S Performing Organization Address [facility] Co de Phone Number [facility] [place] [address] * (ABNORMAL) Differential, Automated (12/21/2017 10:18 AM EDT) Pathologist [facility] Neutrophil % 65.7 % [facility] Neutrophil Absolute 5.47 1.70 - 6.10 x10(3)/mc L [facility] Lymph % 19.0 % [facility] Lymphocytes Abs 1.6 0.9 - 3.2 x10(3)/mc L [facility] Monocyte % 9.0 % [facility] Monocyte Abs 0.8 0.3 - 0.9 x10(3)/[facility] LABORATORY Eos % 4.6 % [facility] Eosinophils Abs 0.4 0.0 - 0.4 x10(3)/[facility] LABORATORY Basophil % 0.7 % [facility] Baso Absolute 0.1 0.0 - 0.1 x10(3)/[facility] LABORATORY Immature Gran % 1.00 % [facility] Comment: Immature granulocytes(IG's)percentage and absolute count will include metamyelocytes, myelocytes, and promyelocytes. Blood smears from CBCs yielding IG's will be scanned manually for concordance. If this scan disagrees with the automated IG or if promyelocytes are noted, a manual differential will be performed. Immature Gran Absolute 0.08(H) 0.00 - 0.04 x10(3)/[facility] LABORATORY Blood specimen (specimen) 12/21/2017 10:18 AM EDT 12/21/2017 10:38 AM EDT Narrative Resulting Agency Comment Spec In Lab José Miguel Maher MD HEMATOLOGY ORDERABLE S [facility] [place] [address] * (ABNORMAL) Hemogram (12/21/2017 10:18 AM EDT) White Blood Cell 8.3 4.0 - 9.5 x10(3)/[facility] LABORATORY Red Blood Cell 5.42 4.58 - 5.54 x10(6)/[facility] LABORATORY Hemoglobin 12.5(L) 13.7 - 16.5 gm/dL [facility] Hematocrit 40.5 40.5 - 48.5 % [facility] Mean Cell Volume 74.7(L) 82.9 - 93.1 fL [facility] Mean Cell Hemoglobin 23.1(L) 27.5 - 32.1 pg [facility] Mean Cell Hemoglobin Concentration 30.9(L) 32.0 - 35.7 gm/dL [facility] Platelet 333 145 - 357 x10(3)/mc L [facility] RDW Standard Deviation 45.7(H) 36.0 - 45.0 [facility] LABORATORY RDW coefficient of variation 17.3(H) 11.4 - 13.8 % [facility] Mean Platelet Volume 9.9 7.6 - 12.9 fL [facility] NRBC% auto 0.0 % [facility] NRBC Absolute 0.000 0.000 - 0.000 x10(3)/mc L [facility] Blood specimen (specimen) 12/21/2017 10:18 AM EDT 12/21/2017 10:38 AM EDT Narrative Resulting Agency Comment Spec In Lab José Miguel Maher MD HEMATOLOGY ORDERABLE S [facility] [place] [address] * (ABNORMAL) Basic Metabolic Panel (non-fasting) (12/21/2017 10:18 AM EDT) Glucose 134 65 - 199 mg/dL [facility] Comment:Diabetes: >=200 mg/d L plus symptoms Blood Urea Nitrogen 15 10 - 20 mg/dL [facility] Creatinine 0.82 0.80 - 1.50 mg/dL [facility] Sodium 147(H) 135 - 145 mmol/L [facility] Potassium 4.2 3.5 - 5.0 mmol/L [facility] Comment: Please note: ??Patients with WBC >100,000 may have falsely elevated Potassium levels. ??For accurate Potassium quantification in these patients send serum separator tube (gold top) for subsequent determinations. ??Contact the Clinical Chemistry Laboratory if there are any questions. Chloride 109(H) 98 - 107 mmol/L [facility] Carbon Dioxide 22 22 - 31 mmol/L [facility] Anion Gap 16(H) 5 - 15 mmol/L [facility] Calcium 10.2 8.5 - 10.5 mg/dL [facility] Est Glomerular Filtration Rate 121 >=60 mL/min/1. 73 m?? [facility] Comment: The eGFR was calculated using the CKD-EPI equation. As with all creatinine based estimates of kidney function, eGFR values calculated with the CKD-EPI equation are not accurate in patients with acute kidney failure, extremes of body mass or the acutely ill. http://SeeWhy/GreenVoltskdep http://SeeWhy/EventRegistnkf eGFR 140 >=60 mL/min/1. 73 m?? [facility] Comment: The eGFR was calculated using the CKD-EPI equation. As with all creatinine based estimates of kidney function, eGFR values calculated with the CKD-EPI equation are not accurate in patients with acute kidney failure, extremes of body mass or the acutely ill. http://SeeWhy/EventRegistnkdep http://SeeWhy/[facility] TULSAnkf Blood specimen (specimen) 12/21/2017 10:18 AM EDT 12/21/2017 10:38 AM EDT Narrative Resulting Agency Comment Spec In Lab José Miguel Maher MD CHEMISTRY ORDERABLES [facility] [place] [address] * (ABNORMAL) Electrolytes panel (12/16/2017 9:01 AM EDT) Sodium 143 135 - 145 mmol/L [facility] Potassium 3.8 3.5 - 5.0 mmol/L [facility] Comment: Please note: ??Patients with WBC >100,000 may have falsely elevated Potassium levels. ??For accurate Potassium quantification in these patients send serum separator tube (gold top) for subsequent determinations. ??Contact the Clinical Chemistry Laboratory if there are any questions. Chloride 103 98 - 107 mmol/L [facility] Carbon Dioxide 23 22 - 31 mmol/L [facility] Anion Gap 17(H) 5 - 15 mmol/L [facility] Blood specimen (specimen) 12/16/2017 9:01 AM EDT 12/16/2017 9:12 AM EDT Narrative Resulting Agency Comment Spec In Lab Fran Gilliam MD CHEMISTRY ORDERABL ES [facility] [place] [address] * (ABNORMAL) Basic Metabolic Panel (non-fasting) (12/14/2017 6:09 PM EDT) Glucose 121 65 - 199 mg/dL [facility] Comment:Diabetes: >=200 mg/d L plus symptoms Blood Urea Nitrogen 11 10 - 20 mg/dL [facility] Creatinine 0.86 0.80 - 1.50 mg/dL [facility] Sodium 145 135 - 145 mmol/L [facility] Potassium 4.1 3.5 - 5.0 mmol/L [facility] Comment: Please note: ??Patients with WBC >100,000 may have falsely elevated Potassium levels. ??For accurate Potassium quantification in these patients send serum separator tube (gold top) for subsequent determinations. ??Contact the Clinical Chemistry Laboratory if there are any questions. Chloride 105 98 - 107 mmol/L [facility] Carbon Dioxide 21(L) 22 - 31 mmol/L [facility] Anion Gap 19(H) 5 - 15 mmol/L [facility] Calcium 8.9 8.5 - 10.5 mg/dL [facility] Est Glomerular Filtration Rate >60 >=60 [facility] Comment: The reported eGFR should be multiplied by 1.2 for patients. The MDRD is not an appropriate measure of renal function for patients with body mass extremes or in patients with acute kidney failure. http://SeeWhy/DHnkdep http://SeeWhy/DHMCnkf Blood specimen (specimen) 12/14/2017 6:09 PM EDT 12/14/2017 6:24 PM EDT Narrative Resulting Agency Comment Spec In Lab Fran Gilliam MD CHEMISTRY ORDERABL ES Performing Organization Address City/[facility]/ZIP Co de Phone Number [facility] [place] [address] * Urine Hold (12/10/2017 11:09 AM EDT) Hold, Urine Sample in lab. [facility] Urine specimen (specimen) Urine / Unknown 12/10/2017 11:09 AM EDT 12/10/2017 11:58 AM EDT Kemi Camp APRN URINE ORDERABLES Performing Organization Address [facility] Co de Phone Number [facility] [place] [address] * Urinalysis with reflex Culture (12/10/2017 11:07 AM EDT) Glucose, Urine Dipstick Negative Negative mg/dL [facility] Protein, Urine Dipstick Negative Negative mg/dL [facility] Bilirubin, Urine Dipstick Negative Negative mg/dL [facility] Comment: Clinical correlation required for positive Urine Bilirubin results as false positive may occur with some drugs and drug related products. If a false positive is suspected a serum total bilirubin should be considered if clinically indicated. Urobilinogen, Urine Dipstick Normal Normal mg/dL [facility] pH, Urn (dipstick) 6.0 5.0 - 8.0 [facility] Blood, Urine Dipstick Negative Negative mg/dL [facility] Ketone, Urine Dipstick Negative Negative mg/dL [facility] Nitrite, Urine Dipstick Negative Negative [facility] Leukocytes, Urine Dipstick Negative Negative [facility] LABORATORY Appearance, Urine Dipstick Clear Clear [facility] Specific [place] Urine Automated 1.015 1.002 - 1.030 [facility] Color, Urine Dipstick Straw Yellow [facility] Reflex to Culture No [facility] Urine specimen obtained by clean catch procedure (specimen) 12/10/2017 11:07 AM EDT 12/10/2017 11:58 AM EDT Narrative Resulting Agency Comment Spec In Lab Kemi Emerald Marya SANTANA URINE ORDERABLES [facility] [place] [address] * (ABNORMAL) BMP w/fasting Glucose (12/09/2017 4:07 AM EDT) Glucose Fasting 90 65 - 99 mg/dL [facility] Comment: ?Fasting* Glucose Interpretive Criteria [...] of Diabetes Mellitus, Position Statement from the [place] [employer]. ??Diabetes Care, Volume 33, Supplement 1, Jul 2009 Blood Urea Nitrogen 20 10 - 20 mg/dL [facility] Creatinine 0.74(L) 0.80 - 1.50 mg/dL [facility] Sodium 139 135 - 145 mmol/L [facility] Potassium 3.8 3.5 - 5.0 mmol/L [facility] Comment: Please note: ??Patients with WBC >100,000 may have falsely elevated Potassium levels. ??For accurate Potassium quantification in these patients send serum separator tube (gold top) for subsequent determinations. ??Contact the Clinical Chemistry Laboratory if there are any questions. Chloride 102 98 - 107 mmol/L [facility] Carbon Dioxide 22 22 - 31 mmol/L [facility] Anion Gap 15 5 - 15 mmol/L [facility] Calcium 9.0 8.5 - 10.5 mg/dL [facility] Est Glomerular Filtration Rate >60 >=60 [facility] Comment: The reported eGFR should be multiplied by 1.2 for patients. The MDRD is not an appropriate measure of renal function for patients with body mass extremes or in patients with acute kidney failure. http://SeeWhy/DHnkdep http://SeeWhy/DHMCnkf Blood specimen (specimen) 12/09/2017 4:07 AM EDT 12/09/2017 4:24 AM EDT Narrative Resulting Agency Comment Spec In Lab Danay Rajan MD CHEMISTRY ORDERAB LES Performing Organization Address City/State/[facility] Co de Phone Number [facility] [place] [address] * (ABNORMAL) Differential, Automated (12/06/2017 7:48 AM EDT) Neutrophil % 37.8 % [facility] Neutrophil Absolute 1.75 1.70 - 6.10 x10(3)/mc L [facility] Lymph % 40.4 % [facility] Lymphocytes Abs 1.9 0.9 - 3.2 x10(3)/mc L [facility] Monocyte % 14.3 % [facility] Monocyte Abs 0.7 0.3 - 0.9 x10(3)/mc L [facility] Eos % 5.8 % [facility] Eosinophils Abs 0.3 0.0 - 0.4 x10(3)/mc L [facility] Basophil % 0.6 % [facility] Baso Absolute 0.0 0.0 - 0.1 x10(3)/mc L [facility] Immature Gran % 1.10 % [facility] Comment: Immature granulocytes(IG's)percentage and absolute count will include metamyelocytes, myelocytes, and promyelocytes. Blood smears from CBCs yielding IG's will be scanned manually for concordance. If this scan disagrees with the automated IG or if promyelocytes are noted, a manual differential will be performed. Immature Gran Absolute 0.05(H) 0.00 - 0.04 x10(3)/[facility] LABORATORY Blood specimen (specimen) 12/06/2017 7:48 AM EDT 12/06/2017 7:53 AM EDT Narrative Resulting Agency Comment Spec In Lab Constantino Courtney MD HEMATOLOGY ORDERABLE S [facility] [place] [address] * (ABNORMAL) Hemogram (12/06/2017 7:48 AM EDT) White Blood Cell 4.6 4.0 - 9.5 x10(3)/[facility] LABORATORY Red Blood Cell 5.03 4.58 - 5.54 x10(6)/ L [facility] Hemoglobin 11.7(L) 13.7 - 16.5 gm/dL [facility] Hematocrit 38.1(L) 40.5 - 48.5 % [facility] Mean Cell Volume 75.7(L) 82.9 - 93.1 fL [facility] Mean Cell Hemoglobin 23.3(L) 27.5 - 32.1 pg [facility] Mean Cell Hemoglobin Concentration 30.7(L) 32.0 - 35.7 gm/dL [facility] Platelet 291 145 - 357 x10(3)/[facility] LABORATORY RDW Standard Deviation 45.1(H) 36.0 - 45.0 fL [facility] RDW coefficient of variation 16.8(H) 11.4 - 13.8 % [facility] Mean Platelet Volume 9.5 7.6 - 12.9 fL [facility] NRBC% auto 0.0 % [facility] NRBC Absolute 0.000 0.000 - 0.000 x10(3)/mc L [facility] Blood specimen (specimen) 12/06/2017 7:48 AM EDT 12/06/2017 7:53 AM EDT Narrative Resulting Agency Comment Spec In Lab Constantino Courtney MD HEMATOLOGY ORDERABLE S [facility] [place] [address] * (ABNORMAL) Basic Metabolic Panel (non-fasting) (12/06/2017 7:48 AM EDT) Glucose 94 65 - 199 mg/dL [facility] Comment:Diabetes: >=200 mg/d L plus symptoms Blood Urea Nitrogen 23(H) 10 - 20 mg/dL [facility] Creatinine 0.64(L) 0.80 - 1.50 mg/dL [facility] Sodium 143 135 - 145 mmol/L [facility] Potassium 3.7 3.5 - 5.0 mmol/L [facility] Comment: Please note: ??Patients with WBC >100,000 may have falsely elevated Potassium levels. ??For accurate Potassium quantification in these patients send serum separator tube (gold top) for subsequent determinations. ??Contact the Clinical Chemistry Laboratory if there are any questions. Chloride 104 98 - 107 mmol/L [facility] Carbon Dioxide 24 22 - 31 mmol/L [facility] Anion Gap 15 5 - 15 mmol/L [facility] Calcium 8.9 8.5 - 10.5 mg/dL [facility] Est Glomerular Filtration Rate >60 >=60 [facility] Comment: The reported eGFR should be multiplied by 1.2 for patients. The MDRD is not an appropriate measure of renal function for patients with body mass extremes or in patients with acute kidney failure. http://RightsFlow.Stellarray/DHnkdep [email or web address]://RightsFlow.Stellarray/DHMCnkf Blood specimen (specimen) 12/06/2017 7:48 AM EDT 12/06/2017 7:53 AM EDT Narrative Resulting Agency Comment Spec In Lab Constantino Courtney MD CHEMISTRY ORDERABLES Performing Organization Address [facility] Co de Phone Number [facility] [place] [address] * EKG 12 Lead (12/05/2017 5:29 PM EDT) Ventricular rate 110 BPM MUSE SYSTEM Atrial Rate 110 BPM MUSE SYSTEM P-R Interval 142 ms MUSE SYSTEM QRS Duration 94 ms MUSE SYSTEM Q-T Interval 334 ms MUSE SYSTEM QTC Calculated (Bezet) 452 ms MUSE SYSTEM Calculated P [place] 33 degrees MUSE SYSTEM Calculated R [place] 57 degrees MUSE SYSTEM Calculated T [place] 60 degrees MUSE SYSTEM INTERPRETATION Sinus tachycardia Nonspecific ST/T wave abnormality Abnormal ECG When compared with ECG of 04-SEP-2017 22:30, Rate slower Confirmed by MD Oh, Sukhi Walker ([id number]) on 12/06/2017 10:46:47 AM MUSE SYSTEM 12/05/2017 5:29 PM EDT 12/06/2017 10:46 AM EDT Cnostantino Courtney MD ECG ORDERABLES Performing Organization Address [facility] de Phone Number MUSE SYSTEM * (ABNORMAL) Electrolytes panel (12/05/2017 1:17 PM EDT) Sodium 143 135 - 145 mmol/L [facility] Potassium 4.0 3.5 - 5.0 mmol/L [facility] Comment: Please note: ??Patients with WBC >100,000 may have falsely elevated Potassium levels. ??For accurate Potassium quantification in these patients send serum separator tube (gold top) for subsequent determinations. ??Contact the Clinical Chemistry Laboratory if there are any questions. Chloride 105 98 - 107 mmol/L [facility] Carbon Dioxide 21(L) 22 - 31 mmol/L [facility] Anion Gap 17(H) 5 - 15 mmol/L [facility] Blood specimen (specimen) 12/05/2017 1:17 PM EDT 12/05/2017 1:40 PM EDT Narrative Resulting Agency Comment Spec In Lab Fran Gilliam MD CHEMISTRY ORDERABL ES Performing Organization Address [facility] de Phone Number [facility] [place] [address] * Electrolytes panel (12/04/2017 3:16 PM EDT) Sodium 142 135 - 145 mmol/L [facility] Potassium 4.6 3.5 - 5.0 mmol/L [facility] Comment: result [id number] Please note: ??Patients with WBC >100,000 may have falsely elevated Potassium levels. ??For accurate Potassium quantification in these patients send serum separator tube (gold top) for subsequent determinations. ??Contact the Clinical Chemistry Laboratory if there are any questions. Chloride 106 98 - 107 mmol/L [facility] Carbon Dioxide 22 22 - 31 mmol/L [facility] Anion Gap 14 5 - 15 mmol/L [facility] Blood specimen (specimen) 12/04/2017 3:16 PM EDT 12/04/2017 3:27 PM EDT Narrative Resulting Agency Comment Spec In Lab Fran Gilliam MD CHEMISTRY ORDERABL ES Performing Organization Address [facility] Co de Phone Number [facility] [place] [address] * (ABNORMAL) Electrolytes panel (12/04/2017 6:27 AM EDT) Sodium 141 135 - 145 mmol/L [facility] Potassium 3.4(L) 3.5 - 5.0 mmol/L [facility] Comment: Please note: ??Patients with WBC >100,000 may have falsely elevated Potassium levels. ??For accurate Potassium quantification in these patients send serum separator tube (gold top) for subsequent determinations. ??Contact the Clinical Chemistry Laboratory if there are any questions. Chloride 102 98 - 107 mmol/L [facility] Carbon Dioxide 25 22 - 31 mmol/L [facility] Anion Gap 14 5 - 15 mmol/L [facility] Blood specimen (specimen) 12/04/2017 6:27 AM EDT 12/04/2017 6:39 AM EDT Narrative Resulting Agency Comment Spec In Lab Fran Gilliam MD CHEMISTRY ORDERABL ES [facility] [place] [address] * (ABNORMAL) Basic Metabolic Panel (non-fasting) (12/03/2017 1:15 PM EDT) Glucose 96 65 - 199 mg/dL [facility] Comment:Diabetes: >=200 mg/d L plus symptoms Blood Urea Nitrogen 24(H) 10 - 20 mg/dL [facility] Creatinine 0.84 0.80 - 1.50 mg/dL [facility] Sodium 142 135 - 145 mmol/L [facility] Potassium 3.9 3.5 - 5.0 mmol/L [facility] Comment: Please note: ??Patients with WBC >100,000 may have falsely elevated Potassium levels. ??For accurate Potassium quantification in these patients send serum separator tube (gold top) for subsequent determinations. ??Contact the Clinical Chemistry Laboratory if there are any questions. Chloride 105 98 - 107 mmol/L [facility] Carbon Dioxide 20(L) 22 - 31 mmol/L [facility] Anion Gap 17(H) 5 - 15 mmol/L [facility] Calcium 9.2 8.5 - 10.5 mg/dL [facility] Est Glomerular Filtration Rate >60 >=60 [facility] Comment: The reported eGFR should be multiplied by 1.2 for patients. The MDRD is not an appropriate measure of renal function for patients with body mass extremes or in patients with acute kidney failure. [email or web address]/DHnkdep http://RightsFlow.com/DHMCnkf Blood specimen (specimen) 12/03/2017 1:15 PM EDT 12/03/2017 1:27 PM EDT Narrative Resulting Agency Comment Spec In Lab Fran Gilliam MD CHEMISTRY ORDERABL ES Performing Organization Address [facility] Co de Phone Number [facility] [place] [address] * (ABNORMAL) Electrolytes panel (12/03/2017 5:48 AM EDT) Sodium 144 135 - 145 mmol/L [facility] Potassium 3.5 3.5 - 5.0 mmol/L [facility] Comment: Please note: ??Patients with WBC >100,000 may have falsely elevated Potassium levels. ??For accurate Potassium quantification in these patients send serum separator tube (gold top) for subsequent determinations. ??Contact the Clinical Chemistry Laboratory if there are any questions. Chloride 106 98 - 107 mmol/L [facility] Carbon Dioxide 22 22 - 31 mmol/L [facility] Anion Gap 16(H) 5 - 15 mmol/L [facility] Blood specimen (specimen) 12/03/2017 5:48 AM EDT 12/03/2017 6:07 AM EDT Narrative Resulting Agency Comment Spec In Lab Fran Gilliam MD CHEMISTRY ORDERABL ES Performing Organization Address [facility] Co de Phone Number [facility] [place] [address] * (ABNORMAL) Electrolytes panel (12/02/2017 10:03 PM EDT) Sodium 146(H) 135 - 145 mmol/L [facility] Potassium 3.9 3.5 - 5.0 mmol/L [facility] Comment: Please note: ??Patients with WBC >100,000 may have falsely elevated Potassium levels. ??For accurate Potassium quantification in these patients send serum separator tube (gold top) for subsequent determinations. ??Contact the Clinical Chemistry Laboratory if there are any questions. Chloride 110(H) 98 - 107 mmol/L [facility] Carbon Dioxide 22 22 - 31 mmol/L [facility] Anion Gap 14 5 - 15 mmol/L [facility] Blood specimen (specimen) 12/02/2017 10:03 PM EDT 12/02/2017 10:11 PM EDT Narrative Resulting Agency Comment Spec In Lab Fran Gilliam MD CHEMISTRY ORDERABL ES Performing Organization Address [facility] Co de Phone Number [facility] [place] [address] * (ABNORMAL) Sodium (12/02/2017 11:40 AM EDT) Sodium 150(H) 135 - 145 mmol/L [facility] Blood specimen (specimen) 12/02/2017 11:40 AM EDT 12/02/2017 11:59 AM EDT Narrative Resulting Agency Comment Spec In Lab Fran Gilliam MD CHEMISTRY ORDERABL ES Performing Organization Address [facility] Co de Phone Number [facility] [place] [address] * (ABNORMAL) Electrolytes panel (12/02/2017 7:52 AM EDT) Sodium 153(H) 135 - 145 mmol/L [facility] Potassium 3.7 3.5 - 5.0 mmol/L [facility] Comment: Please note: ??Patients with WBC >100,000 may have falsely elevated Potassium levels. ??For accurate Potassium quantification in these patients send serum separator tube (gold top) for subsequent determinations. ??Contact the Clinical Chemistry Laboratory if there are any questions. Chloride 114(H) 98 - 107 mmol/L [facility] Carbon Dioxide 22 22 - 31 mmol/L [facility] Anion Gap 17(H) 5 - 15 mmol/L [facility] Blood specimen (specimen) 12/02/2017 7:52 AM EDT 12/02/2017 7:58 AM EDT Narrative Resulting Agency Comment Spec In Lab Fran Gilliam MD CHEMISTRY ORDERABL ES [facility] [place] [address] * (ABNORMAL) Basic Metabolic Panel (non-fasting) (12/01/2017 9:43 PM EDT) Glucose 132 65 - 199 mg/dL [facility] Comment:Diabetes: >=200 mg/d L plus symptoms Blood Urea Nitrogen 23(H) 10 - 20 mg/dL [facility] Creatinine 0.92 0.80 - 1.50 mg/dL [facility] Sodium 148(H) 135 - 145 mmol/L [facility] Potassium 3.6 3.5 - 5.0 mmol/L [facility] Comment: Please note: ??Patients with WBC >100,000 may have falsely elevated Potassium levels. ??For accurate Potassium quantification in these patients send serum separator tube (gold top) for subsequent determinations. ??Contact the Clinical Chemistry Laboratory if there are any questions. Chloride 111(H) 98 - 107 mmol/L [facility] Carbon Dioxide 25 22 - 31 mmol/L [facility] Anion Gap 12 5 - 15 mmol/L [facility] Calcium 8.6 8.5 - 10.5 mg/dL [facility] Est Glomerular Filtration Rate >60 >=60 [facility] Comment: The reported eGFR should be multiplied by 1.2 for patients. The MDRD is not an appropriate measure of renal function for patients with body mass extremes or in patients with acute kidney failure. [email or web address]/DHnkdep [email or web address]/DHMCnkf Blood specimen (specimen) 12/01/2017 9:43 PM EDT 12/01/2017 9:48 PM EDT Narrative Resulting Agency Comment Spec In Lab Fran Gilliam MD CHEMISTRY ORDERABL ES [facility] [place] [address] * (ABNORMAL) Basic Metabolic Panel (non-fasting) (12/01/2017 11:27 AM EDT) Glucose 99 65 - 199 mg/dL [facility] Comment:Diabetes: >=200 mg/d L plus symptoms Blood Urea Nitrogen 21(H) 10 - 20 mg/dL [facility] Creatinine 1.03 0.80 - 1.50 mg/dL [facility] Sodium 151(H) 135 - 145 mmol/L [facility] Potassium 4.0 3.5 - 5.0 mmol/L [facility] Comment: Please note: ??Patients with WBC >100,000 may have falsely elevated Potassium levels. ??For accurate Potassium quantification in these patients send serum separator tube (gold top) for subsequent determinations. ??Contact the Clinical Chemistry Laboratory if there are any questions. Chloride 114(H) 98 - 107 mmol/L [facility] Carbon Dioxide 24 22 - 31 mmol/L [facility] Anion Gap 13 5 - 15 mmol/L [facility] Calcium 9.3 8.5 - 10.5 mg/dL [facility] Est Glomerular Filtration Rate >60 >=60 [facility] Comment: The reported eGFR should be multiplied by 1.2 for patients. The MDRD is not an appropriate measure of renal function for patients with body mass extremes or in patients with acute kidney failure. [email or web address]/DHnkdep [email or web address] Blood specimen (specimen) 12/01/2017 11:27 AM EDT 12/01/2017 11:33 AM EDT Narrative Resulting Agency Comment Spec In Lab Fran Gilliam MD CHEMISTRY ORDERABL ES Performing Organization Address City/[facility]/ZIP Co de Phone Number [facility] [place] [address] * T4, free (11/28/2017 10:52 AM EDT) Free T4 0.98 0.93 - 1.70 ng/dL [facility] Blood specimen (specimen) 11/28/2017 10:52 AM EDT 11/28/2017 11:07 AM EDT Narrative Resulting Agency Comment Spec In Lab Yadi Mccauley MD CHEMISTRY ORDERAB LES Performing Organization Address [facility]/ZIP Co de Phone Number [facility] [place] [address] * Basic Metabolic Panel (non-fasting) (11/26/2017 5:49 AM EDT) [facility] Glucose 84 65 - 199 mg/dL [facility] Comment:Diabetes: >=200 mg/d L plus symptoms Blood Urea Nitrogen 13 10 - 20 mg/dL [facility] Creatinine 0.80 0.80 - 1.50 mg/dL [facility] Sodium 143 135 - 145 mmol/L [facility] Potassium 3.7 3.5 - 5.0 mmol/L [facility] Comment: Please note: ??Patients with WBC >100,000 may have falsely elevated Potassium levels. ??For accurate Potassium quantification in these patients send serum separator tube (gold top) for subsequent determinations. ??Contact the Clinical Chemistry Laboratory if there are any questions. Chloride 105 98 - 107 mmol/L [facility] Carbon Dioxide 26 22 - 31 mmol/L [facility] Anion Gap 12 5 - 15 mmol/L [facility] Calcium 9.2 8.5 - 10.5 mg/dL [facility] Est Glomerular Filtration Rate >60 >=60 [facility] Comment: The reported eGFR should be multiplied by 1.2 for patients. The MDRD is not an appropriate measure of renal function for patients with body mass extremes or in patients with acute kidney failure. http://SeeWhy/DHnkdep [email or web address]/DHMCnkf Blood specimen (specimen) 11/26/2017 5:49 AM EDT 11/26/2017 6:03 AM EDT Narrative Resulting Agency Comment Spec In Lab Ren Sanchez III, MD CHEMISTRY ORDERABLES [facility] [place] [id number] * (ABNORMAL) Basic Metabolic Panel (non-fasting) (11/23/2017 9:53 AM EDT) Glucose 116 65 - 199 mg/dL [facility] Comment:Diabetes: >=200 mg/d L plus symptoms Blood Urea Nitrogen 11 10 - 20 mg/dL [facility] Creatinine 1.06 0.80 - 1.50 mg/dL [facility] Sodium 142 135 - 145 mmol/L [facility] Potassium 3.9 3.5 - 5.0 mmol/L [facility] Comment: Please note: ??Patients with WBC >100,000 may have falsely elevated Potassium levels. ??For accurate Potassium quantification in these patients send serum separator tube (gold top) for subsequent determinations. ??Contact the Clinical Chemistry Laboratory if there are any questions. Chloride 106 98 - 107 mmol/L [facility] Carbon Dioxide 21(L) 22 - 31 mmol/L [facility] Anion Gap 15 5 - 15 mmol/L [facility] Calcium 9.1 8.5 - 10.5 mg/dL [facility] Est Glomerular Filtration Rate >60 >=60 [facility] Comment: The reported eGFR should be multiplied by 1.2 for patients. The MDRD is not an appropriate measure of renal function for patients with body mass extremes or in patients with acute kidney failure. http://[email or web address] [email or web address]/DHMCnkf Blood specimen (specimen) 11/23/2017 9:53 AM EDT 11/23/2017 10:10 AM EDT Narrative Resulting Agency Comment Spec In Lab Crista Aguilar MD CHEMISTRY ORDERABLE S [facility] [place] [address] * Basic Metabolic Panel (non-fasting) (11/22/2017 11:05 AM EDT) Glucose 106 65 - 199 mg/dL [facility] Comment:Diabetes: >=200 mg/d L plus symptoms Blood Urea Nitrogen 14 10 - 20 mg/dL [facility] Creatinine 0.84 0.80 - 1.50 mg/dL [facility] Sodium 140 135 - 145 mmol/L [facility] Potassium 4.0 3.5 - 5.0 mmol/L [facility] Comment: Please note: ??Patients with WBC >100,000 may have falsely elevated Potassium levels. ??For accurate Potassium quantification in these patients send serum separator tube (gold top) for subsequent determinations. ??Contact the Clinical Chemistry Laboratory if there are any questions. Chloride 101 98 - 107 mmol/L [facility] Carbon Dioxide 25 22 - 31 mmol/L [facility] Anion Gap 14 5 - 15 mmol/L [facility] Calcium 9.2 8.5 - 10.5 mg/dL [facility] Est Glomerular Filtration Rate >60 >=60 [facility] Comment: The reported eGFR should be multiplied by 1.2 for patients. The MDRD is not an appropriate measure of renal function for patients with body mass extremes or in patients with acute kidney failure. http://[email or web address] [email or web address]/DHMCnkf Blood specimen (specimen) 11/22/2017 11:05 AM EDT 11/22/2017 11:14 AM EDT Narrative Resulting Agency Comment Spec In Lab Crista Aguilar MD CHEMISTRY ORDERABLE S Performing Organization Address City/[facility]/ZIP Co de Phone Number [facility] [place] [address] * (ABNORMAL) T4, free (11/22/2017 11:05 AM EDT) Free T4 0.81(L) 0.93 - 1.70 ng/dL [facility] Blood specimen (specimen) 11/22/2017 11:05 AM EDT 11/22/2017 11:14 AM EDT Narrative Resulting Agency Comment Spec In Lab Yadi Mccauley MD CHEMISTRY ORDERAB LES Performing Organization Address [facility] Co de Phone Number [facility] [place] [address] * (ABNORMAL) Basic Metabolic Panel (non-fasting) (11/19/2017 5:00 PM EDT) [facility] Glucose 113 65 - 199 mg/dL [facility] Comment:Diabetes: >=200 mg/d L plus symptoms Blood Urea Nitrogen 12 10 - 20 mg/dL [facility] Creatinine 0.70(L) 0.80 - 1.50 mg/dL [facility] Sodium 134(L) 135 - 145 mmol/L [facility] Potassium 4.2 3.5 - 5.0 mmol/L [facility] Comment: Please note: ??Patients with WBC >100,000 may have falsely elevated Potassium levels. ??For accurate Potassium quantification in these patients send serum separator tube (gold top) for subsequent determinations. ??Contact the Clinical Chemistry Laboratory if there are any questions. Chloride 96(L) 98 - 107 mmol/L [facility] Carbon Dioxide 21(L) 22 - 31 mmol/L [facility] Anion Gap 17(H) 5 - 15 mmol/L [facility] Calcium 8.7 8.5 - 10.5 mg/dL [facility] Est Glomerular Filtration Rate >60 >=60 [facility] Comment: The reported eGFR should be multiplied by 1.2 for patients. The MDRD is not an appropriate measure of renal function for patients with body mass extremes or in patients with acute kidney failure. http://[email or web address] [email or web address]/DHMCnkf Blood specimen (specimen) 11/19/2017 5:00 PM EDT 11/19/2017 5:06 PM EDT Narrative Resulting Agency Comment Spec In Lab Crista Aguilar MD CHEMISTRY ORDERABLE S [facility] [place] [address] * (ABNORMAL) Basic Metabolic Panel (non-fasting) (11/19/2017 5:52 AM EDT) Glucose 85 65 - 199 mg/dL [facility] Comment:Diabetes: >=200 mg/d L plus symptoms Blood Urea Nitrogen 11 10 - 20 mg/dL [facility] Creatinine 0.79(L) 0.80 - 1.50 mg/dL [facility] Sodium 132(L) 135 - 145 mmol/L [facility] Potassium 3.7 3.5 - 5.0 mmol/L [facility] Comment: Please note: ??Patients with WBC >100,000 may have falsely elevated Potassium levels. ??For accurate Potassium quantification in these patients send serum separator tube (gold top) for subsequent determinations. ??Contact the Clinical Chemistry Laboratory if there are any questions. Chloride 93(L) 98 - 107 mmol/L [facility] Carbon Dioxide 24 22 - 31 mmol/L [facility] Anion Gap 15 5 - 15 mmol/L [facility] Calcium 8.9 8.5 - 10.5 mg/dL [facility] Est Glomerular Filtration Rate >60 >=60 [facility] Comment: The reported eGFR should be multiplied by 1.2 for patients. The MDRD is not an appropriate measure of renal function for patients with body mass extremes or in patients with acute kidney failure. http://[email or web address] [email or web address]/DHMCnkf Blood specimen (specimen) 11/19/2017 5:52 AM EDT 11/19/2017 6:14 AM EDT Narrative Resulting Agency Comment Spec In Lab Crista Aguilar MD CHEMISTRY ORDERABLE S [facility] [place] [address] * XR Pelvis Judet or In Out [...] EDT) Glucose 94 65 - 199 mg/dL [facility] Comment:Diabetes: >=200 mg/d L plus symptoms Blood Urea Nitrogen 12 10 - 20 mg/dL [facility] Creatinine 0.89 0.80 - 1.50 mg/dL [facility] Sodium 137 135 - 145 mmol/L [facility] Potassium 3.6 3.5 - 5.0 mmol/L [facility] Comment: Please note: ??Patients with WBC >100,000 may have falsely elevated Potassium levels. ??For accurate Potassium quantification in these patients send serum separator tube (gold top) for subsequent determinations. ??Contact the Clinical Chemistry Laboratory if there are any questions. Chloride 99 98 - 107 mmol/L [facility] Carbon Dioxide 25 22 - 31 mmol/L [facility] Anion Gap 13 5 - 15 mmol/L [facility] Calcium 8.4(L) 8.5 - 10.5 mg/dL [facility] Est Glomerular Filtration Rate >60 >=60 [facility] Comment: The reported eGFR should be multiplied by 1.2 for patients. The MDRD is not an appropriate measure of renal function for patients with body mass extremes or in patients with acute kidney failure. [email or web address]/DHnkdep http://SeeWhy/DHMCnkf Blood specimen (specimen) 11/18/2017 5:15 AM EDT 11/18/2017 5:21 AM EDT Narrative Resulting Agency Comment Spec In Lab Crista Aguilar MD CHEMISTRY ORDERABLE S Performing Organization Address City/[facility]/ZIP Co de Phone Number [facility] [place] [address] * POCT Glucose (11/18/2017 3:09 AM EDT) Glucose, POC 146 65 - 199 mg/dL [facility] Comment: Supplemental ranges: <140 mg/dL before meals <180 mg/dL all other times of the day Blood specimen (specimen) 11/18/2017 3:09 AM EDT 11/18/2017 3:09 AM EDT Crista Aguilar MD POINT OF CARE TEST ORDERABLES Performing Organization Address [facility]/ZIP Co de Phone Number [facility] [place] [address] * XR Pelvis w AP & Lat [...] No large knee effusion. Crista Aguilar MD [facility] DX ORDERABLES * (ABNORMAL) BMP w/fasting Glucose (11/17/2017 9:09 AM EDT) Glucose Fasting 112(H) 65 - 99 mg/dL [facility] Comment: ?Fasting* Glucose Interpretive Criteria [...] of Diabetes Mellitus, Position Statement from the [place] [employer]. ??Diabetes Care, Volume 33, Supplement 1, Jul 2009 Blood Urea Nitrogen 17 10 - 20 mg/dL [facility] Creatinine 0.87 0.80 - 1.50 mg/dL [facility] Sodium 139 135 - 145 mmol/L [facility] Potassium 3.4(L) 3.5 - 5.0 mmol/L [facility] Comment: Please note: ??Patients with WBC >100,000 may have falsely elevated Potassium levels. ??For accurate Potassium quantification in these patients send serum separator tube (gold top) for subsequent determinations. ??Contact the Clinical Chemistry Laboratory if there are any questions. Chloride 100 98 - 107 mmol/L [facility] Carbon Dioxide 24 22 - 31 mmol/L [facility] Anion Gap 15 5 - 15 mmol/L [facility] Calcium 8.9 8.5 - 10.5 mg/dL [facility] Est Glomerular Filtration Rate >60 >=60 [facility] Comment: The reported eGFR should be multiplied by 1.2 for patients. The MDRD is not an appropriate measure of renal function for patients with body mass extremes or in patients with acute kidney failure. http://[email or web address]/DHnkdep http://SeeWhy/DHMCnkf Blood specimen (specimen) 11/17/2017 9:09 AM EDT 11/17/2017 9:15 AM EDT Narrative Resulting Agency Comment Spec In Lab Kemi Camp APRN CHEMISTRY ORDERAB LES Performing Organization Address [facility] Co de Phone Number [facility] [place] [address] * T3 Total (11/17/2017 5:11 AM EDT) [facility] T3 Total 80 75 - 170 ng/dL [facility] Blood specimen (specimen) Venous Draw / Unknown 11/17/2017 5:11 AM EDT 11/17/2017 8:16 AM EDT Narrative Resulting Agency Comment Spec In Lab Yadi Mccauley MD CHEMISTRY ORDERAB LES Performing Organization Address [facility] Co de Phone Number [facility] [place] [address] * (ABNORMAL) T4, free (11/17/2017 5:11 AM EDT) [facility] Free T4 0.72(L) 0.93 - 1.70 ng/dL [facility] Blood specimen (specimen) Venous Draw / Unknown 11/17/2017 5:11 AM EDT 11/17/2017 8:16 AM EDT Narrative Resulting Agency Comment Spec In Lab Yadi Mccauley MD CHEMISTRY ORDERAB LES Performing Organization Address [facility] Co de Phone Number [facility] [place] [address] * (ABNORMAL) Basic Metabolic Panel (non-fasting) (11/17/2017 5:11 AM EDT) [facility] Glucose 87 65 - 199 mg/dL [facility] Comment:Diabetes: >=200 mg/d L plus symptoms Blood Urea Nitrogen 17 10 - 20 mg/dL [facility] Creatinine 0.84 0.80 - 1.50 mg/dL [facility] Sodium 138 135 - 145 mmol/L [facility] Comment:result rechecked-jt Potassium 3.4(L) 3.5 - 5.0 mmol/L [facility] Comment: Please note: ??Patients with WBC >100,000 may have falsely elevated Potassium levels. ??For accurate Potassium quantification in these patients send serum separator tube (gold top) for subsequent determinations. ??Contact the Clinical Chemistry Laboratory if there are any questions. Chloride 99 98 - 107 mmol/L [facility] Comment:result rechecked-jt Carbon Dioxide 24 22 - 31 mmol/L [facility] Anion Gap 15 5 - 15 mmol/L [facility] Calcium 8.5 8.5 - 10.5 mg/dL [facility] Est Glomerular Filtration Rate >60 >=60 [facility] Comment: The reported eGFR should be multiplied by 1.2 for patients. The MDRD is not an appropriate measure of renal function for patients with body mass extremes or in patients with acute kidney failure. http://SeeWhy/DHnkdep http://SeeWhy/DHMCnkf Blood specimen (specimen) 11/17/2017 5:11 AM EDT 11/17/2017 5:26 AM EDT Narrative Resulting Agency Comment Spec In Lab Crista Aguilar MD CHEMISTRY ORDERABLE S [facility] [place] [address] * (ABNORMAL) Basic Metabolic Panel (non-fasting) (11/16/2017 7:52 PM EDT) Glucose 111 65 - 199 mg/dL [facility] Comment:Diabetes: >=200 mg/d L plus symptoms Blood Urea Nitrogen 20 10 - 20 mg/dL [facility] Creatinine 1.15 0.80 - 1.50 mg/dL [facility] Sodium 142 135 - 145 mmol/L [facility] Potassium 3.8 3.5 - 5.0 mmol/L [facility] Comment: Please note: ??Patients with WBC >100,000 may have falsely elevated Potassium levels. ??For accurate Potassium quantification in these patients send serum separator tube (gold top) for subsequent determinations. ??Contact the Clinical Chemistry Laboratory if there are any questions. Chloride 101 98 - 107 mmol/L [facility] Carbon Dioxide 25 22 - 31 mmol/L [facility] Anion Gap 16(H) 5 - 15 mmol/L [facility] Calcium 8.8 8.5 - 10.5 mg/dL [facility] Est Glomerular Filtration Rate >60 >=60 [facility] Comment: The reported eGFR should be multiplied by 1.2 for patients. The MDRD is not an appropriate measure of renal function for patients with body mass extremes or in patients with acute kidney failure. http://SeeWhy/DHnkdep http://SeeWhy/DHMCnkf Blood specimen (specimen) 11/16/2017 7:52 PM EDT 11/16/2017 7:57 PM EDT Narrative Resulting Agency Comment Spec In Lab Crista Aguilar MD CHEMISTRY ORDERABLE S Performing Organization Address [facility] Co de Phone Number [facility] [place] [address] * Specific [place], Urine (11/16/2017 6:24 AM EDT) Specific [place] Urine Automated 1.025 1.002 - 1.030 [facility] Urine specimen (specimen) 11/16/2017 6:24 AM EDT 11/16/2017 6:56 AM EDT Narrative Resulting Agency Comment Spec In Lab Yadi Mccauley MD URINE ORDERABLES Performing Organization Address [facility]/ZIP Co de Phone Number [facility] [place], [place] [address] * Electrolytes, urine, random (11/16/2017 6:24 AM EDT) Sodium, Urine 98 mmol/L [facility] Potassium, Urine 49 mmol/L [facility] Chloride, Urine 75 mmol/L [facility] Urine specimen (specimen) 11/16/2017 6:24 AM EDT 11/16/2017 6:56 AM EDT Narrative Resulting Agency Comment Spec In Lab Yossi Morin DO URINE ORDERABLES Performing Organization Address [facility] Co de Phone Number [facility] [place] [address] * Osmolality, urine, random (11/16/2017 6:24 AM EDT) Osmolality, Urine 493 50 - 1,200 mOsm/kg [facility] Urine specimen (specimen) 11/16/2017 6:24 AM EDT 11/16/2017 6:56 AM EDT Narrative Resulting Agency Comment Spec In Lab Yossi Morin URINE ORDERABLES Performing Organization Address [facility] Co de Phone Number [facility] [place] [address] * (ABNORMAL) Basic Metabolic Panel (non-fasting) (11/15/2017 5:44 PM EDT) Glucose 109 65 - 199 mg/dL [facility] Comment:Diabetes: >=200 mg/d L plus symptoms Blood Urea Nitrogen 13 10 - 20 mg/dL [facility] Creatinine 0.87 0.80 - 1.50 mg/dL [facility] Sodium 152(H) 135 - 145 mmol/L [facility] Potassium 3.8 3.5 - 5.0 mmol/L [facility] Comment: Please note: ??Patients with WBC >100,000 may have falsely elevated Potassium levels. ??For accurate Potassium quantification in these patients send serum separator tube (gold top) for subsequent determinations. ??Contact the Clinical Chemistry Laboratory if there are any questions. Chloride 110(H) 98 - 107 mmol/L [facility] Carbon Dioxide 25 22 - 31 mmol/L [facility] Anion Gap 17(H) 5 - 15 mmol/L [facility] Calcium 9.3 8.5 - 10.5 mg/dL [facility] Est Glomerular Filtration Rate >60 >=60 [facility] Comment: The reported eGFR should be multiplied by 1.2 for patients. The MDRD is not an appropriate measure of renal function for patients with body mass extremes or in patients with acute kidney failure. http://SeeWhy/DHnkdep http://SeeWhy/DHMCnkf Blood specimen (specimen) 11/15/2017 5:44 PM EDT 11/15/2017 5:51 PM EDT Narrative Resulting Agency Comment Spec In Lab Crista Aguilar MD CHEMISTRY ORDERABLE S [facility] [place] [address] * (ABNORMAL) T4, free (11/15/2017 5:15 AM EDT) Free T4 0.71(L) 0.93 - 1.70 ng/dL [facility] Blood specimen (specimen) Venous Draw / Unknown 11/15/2017 5:15 AM EDT 11/15/2017 5:28 AM EDT Narrative Resulting Agency Comment Spec In Lab Yadi Mccauley MD CHEMISTRY ORDERAB LES [facility] [place] [address] * Magnesium (11/15/2017 5:15 AM EDT) Magnesium 0.92 0.69 - 1.07 mmol/L [facility] Blood specimen (specimen) 11/15/2017 5:15 AM EDT 11/15/2017 5:25 AM EDT Narrative Resulting Agency Comment Spec In Lab Yossi Morin DO CHEMISTRY ORDERABLES [facility] [place] [address] * (ABNORMAL) Basic Metabolic Panel (non-fasting) (11/15/2017 5:15 AM EDT) Glucose 109 65 - 199 mg/dL [facility] Comment:Diabetes: >=200 mg/d L plus symptoms Blood Urea Nitrogen 13 10 - 20 mg/dL [facility] Creatinine 0.92 0.80 - 1.50 mg/dL [facility] Sodium 151(H) 135 - 145 mmol/L [facility] Potassium 4.0 3.5 - 5.0 mmol/L [facility] Comment: Please note: ??Patients with WBC >100,000 may have falsely elevated Potassium levels. ??For accurate Potassium quantification in these patients send serum separator tube (gold top) for subsequent determinations. ??Contact the Clinical Chemistry Laboratory if there are any questions. Chloride 112(H) 98 - 107 mmol/L [facility] Comment:result rechecked-jt Carbon Dioxide 27 22 - 31 mmol/L [facility] Anion Gap 12 5 - 15 mmol/L [facility] Calcium 9.4 8.5 - 10.5 mg/dL [facility] Est Glomerular Filtration Rate >60 >=60 [facility] Comment: The reported eGFR should be multiplied by 1.2 for patients. The MDRD is not an appropriate measure of renal function for patients with body mass extremes or in patients with acute kidney failure. [email or web address]/DHnkdep http://[email or web address]/DHMCnkf Blood specimen (specimen) 11/15/2017 5:15 AM EDT 11/15/2017 5:25 AM EDT Narrative Resulting Agency Comment Spec In Lab Yossi Morin DO CHEMISTRY ORDERABLES Performing Organization Address City/[facility]/ZIP Co de Phone Number [facility] [place] [address] * (ABNORMAL) Hemogram (11/14/2017 5:08 AM EDT) White Blood Cell 5.7 4.0 - 9.5 x10(3)/ L [facility] Red Blood Cell 4.61 4.58 - 5.54 x10(6)/[facility] Hemoglobin 11.5(L) 13.7 - 16.5 gm/dL [facility] Hematocrit 37.4(L) 40.5 - 48.5 % [facility] Mean Cell Volume 81.1(L) 82.9 - 93.1 [facility] Mean Cell Hemoglobin 24.9(L) 27.5 - 32.1 pg [facility] Mean Cell Hemoglobin Concentration 30.7(L) 32.0 - 35.7 gm/dL [facility] Platelet 274 145 - 357 x10(3)/[facility] RDW Standard Deviation 48.6(H) 36.0 - 45.0 [facility] RDW coefficient of variation 16.5(H) 11.4 - 13.8 % [facility] Mean Platelet Volume 10.0 7.6 - 12.9 [facility] NRBC% auto 0.0 % [facility] NRBC Absolute 0.000 0.000 - 0.000 x10(3)/[facility] Blood specimen (specimen) 11/14/2017 5:08 AM EDT 11/14/2017 5:44 AM EDT Narrative Resulting Agency Comment Spec In Lab Yossi Morin DO HEMATOLOGY ORDERABLE S Performing Organization Address City/[facility]/ZIP Co de Phone Number [facility] [place] [address] * Magnesium (11/14/2017 5:08 AM EDT) Magnesium 0.84 0.69 - 1.07 mmol/L [facility] Blood specimen (specimen) 11/14/2017 5:08 AM EDT 11/14/2017 5:44 AM EDT Narrative Resulting Agency Comment Spec In Lab Yossi Morin DO CHEMISTRY ORDERABLES [facility] [place] [address] * Basic Metabolic Panel (non-fasting) (11/14/2017 5:08 AM EDT) Glucose 85 65 - 199 mg/dL [facility] Comment:Diabetes: >=200 mg/d L plus symptoms Blood Urea Nitrogen 12 10 - 20 mg/dL [facility] Creatinine 0.85 0.80 - 1.50 mg/dL [facility] Sodium 143 135 - 145 mmol/L [facility] Potassium 3.5 3.5 - 5.0 mmol/L [facility] Comment: Please note: ??Patients with WBC >100,000 may have falsely elevated Potassium levels. ??For accurate Potassium quantification in these patients send serum separator tube (gold top) for subsequent determinations. ??Contact the Clinical Chemistry Laboratory if there are any questions. Chloride 103 98 - 107 mmol/L [facility] Carbon Dioxide 28 22 - 31 mmol/L [facility] Anion Gap 12 5 - 15 mmol/L [facility] Calcium 9.2 8.5 - 10.5 mg/dL [facility] Est Glomerular Filtration Rate >60 >=60 [facility] Comment: The reported eGFR should be multiplied by 1.2 for patients. The MDRD is not an appropriate measure of renal function for patients with body mass extremes or in patients with acute kidney failure. http://SeeWhy/DHnkdep http://SeeWhy/DHMCnkf Blood specimen (specimen) 11/14/2017 5:08 AM EDT 11/14/2017 5:44 AM EDT Narrative Resulting Agency Comment Spec In Lab Yossi Morin DO CHEMISTRY ORDERABLES Performing Organization Address [facility]/ZIP Co de Phone Number [facility] [place] [address] * Sodium (11/13/2017 7:16 PM EDT) Sodium 142 135 - 145 mmol/L [facility] Blood specimen (specimen) 11/13/2017 7:16 PM EDT 11/13/2017 7:26 PM EDT Narrative Resulting Agency Comment Spec In Lab Yossi Morin DO CHEMISTRY ORDERABLES Performing Organization Address [facility] de Phone Number [facility] [place] [address] * (ABNORMAL) Basic Metabolic Panel (non-fasting) (11/13/2017 6:33 AM EDT) Glucose 101 65 - 199 mg/dL [facility] Comment:Diabetes: >=200 mg/d L plus symptoms Blood Urea Nitrogen 11 10 - 20 mg/dL [facility] Creatinine 0.77(L) 0.80 - 1.50 mg/dL [facility] Sodium 148(H) 135 - 145 mmol/L [facility] Potassium Not Perf 3.5 - 5.0 mmol/L [facility] Comment: Unable to quantitate due to sample hemolysis. ??Sample redraw suggested. Called by: [facility], Read back by: Adia Clarke, Date/Time:11/13/17 09:21. Please note: ??Patients with WBC >100,000 may have falsely elevated Potassium levels. ??For accurate Potassium quantification in these patients send serum separator tube (gold top) for subsequent determinations. ??Contact the Clinical Chemistry Laboratory if there are any questions. Chloride 109(H) 98 - 107 mmol/L [facility] Carbon Dioxide Not Perf 22 - 31 mmol/L [facility] Comment: Lipemic interference. TLH Corrected from 26 mMol/L on 11/13/17 07:54 by Tammie Caldwell Anion Gap Not Calculated 5 - 15 mmol/L [facility] Calcium 8.8 8.5 - 10.5 mg/dL [facility] Est Glomerular Filtration Rate >60 >=60 [facility] Comment: The reported eGFR should be multiplied by 1.2 for patients. The MDRD is not an appropriate measure of renal function for patients with body mass extremes or in patients with acute kidney failure. http://SeeWhy/DHnkdep http://SeeWhy/DHMCnkf Blood specimen (specimen) 11/13/2017 6:33 AM EDT 11/13/2017 6:45 AM EDT Narrative Resulting Agency Comment Spec In Lab Yossi Morin DO CHEMISTRY ORDERABLES Performing Organization Address City/State/[facility] Co de Phone Number [facility] [place] [address] * (ABNORMAL) Basic Metabolic Panel (non-fasting) (11/10/2017 7:36 AM EDT) Glucose 84 65 - 199 mg/dL [facility] Comment:Diabetes: >=200 mg/d L plus symptoms Blood Urea Nitrogen 18 10 - 20 mg/dL [facility] Creatinine 0.87 0.80 - 1.50 mg/dL [facility] Comment:Specimen ultracentri fuged due to gross lipemia Sodium 145 135 - 145 mmol/L [facility] Comment:Specimen ultracentri fuged due to gross lipemia Potassium 3.7 3.5 - 5.0 mmol/L [facility] Comment: Please note: ??Patients with WBC >100,000 may have falsely elevated Potassium levels. ??For accurate Potassium quantification in these patients send serum separator tube (gold top) for subsequent determinations. ??Contact the Clinical Chemistry Laboratory if there are any questions. Chloride 99 98 - 107 mmol/L [facility] Carbon Dioxide 26 22 - 31 mmol/L [facility] Anion Gap 20(H) 5 - 15 mmol/L [facility] Calcium 8.9 8.5 - 10.5 mg/dL [facility] Est Glomerular Filtration Rate >60 >=60 [facility] Comment: The reported eGFR should be multiplied by 1.2 for patients. The MDRD is not an appropriate measure of renal function for patients with body mass extremes or in patients with acute kidney failure. http://SeeWhy/DHnkdep http://SeeWhy/DHMCnkf Blood specimen (specimen) 11/10/2017 7:36 AM EDT 11/10/2017 7:40 AM EDT Narrative Resulting Agency Comment Spec In Lab Prosper Courtney APRN CHEMISTRY ORDERABLES [facility] [place] [address] * Basic Metabolic Panel (non-fasting) (11/10/2017 6:24 AM EDT) Glucose 88 65 - 199 mg/dL [facility] Comment:Diabetes: >=200 mg/d L plus symptoms Blood Urea Nitrogen 18 10 - 20 mg/dL [facility] Creatinine Not Perf 0.80 - 1.50 [facility] Comment: Unable to quantitate due to sample hemolysis. ??Sample redraw suggested. Called by: [facility], Read back by: Emerald Domínguez, Date/Time:11/10/17 07:17. Sodium Not Perf 135 - 145 [facility] Comment: Unable to quantitate due to sample hemolysis. ??Sample redraw suggested. Called by: [facility], Read back by: Emerald Domínguez, Date/Time:11/10/17 07:17. Potassium Not Perf 3.5 - 5.0 mmol/L [facility] Comment: Unable to quantitate due [...] questions. Chloride 98 98 - 107 mmol/L [facility] Carbon Dioxide 27 22 - 31 mmol/L [facility] Anion Gap Unable to Calculate 5 - 15 mmol/L [facility] Calcium 8.8 8.5 - 10.5 mg/dL [facility] Est Glomerular Filtration Rate Not Calculated >=60 [facility] Comment: The reported eGFR should be multiplied by 1.2 for patients. The MDRD is not an appropriate measure of renal function for patients with body mass extremes or in patients with acute kidney failure. http://SeeWhy/DHnkdep http://SeeWhy/DHMCnkf Blood specimen (specimen) 11/10/2017 6:24 AM EDT 11/10/2017 6:33 AM EDT Narrative Resulting Agency Comment Spec In Lab Yossi Morin DO CHEMISTRY ORDERABLES [facility] [place] [address] * (ABNORMAL) Basic Metabolic Panel (non-fasting) (11/09/2017 8:41 PM EDT) Glucose 119 65 - 199 mg/dL [facility] Comment:Diabetes: >=200 mg/d L plus symptoms Blood Urea Nitrogen 18 10 - 20 mg/dL [facility] Creatinine 1.01 0.80 - 1.50 mg/dL [facility] Comment:Specimen ultracentri fuged due to gross lipemia Sodium 145 135 - 145 mmol/L [facility] Comment:Specimen ultracentri fuged due to gross lipemia Potassium Not Perf 3.5 - 5.0 mmol/L [facility] Comment: Unable to quantitate due [...] 98 - 107 mmol/L [facility] Comment:Specimen ultracentri fuged due to gross lipemia Carbon Dioxide 23 22 - 31 mmol/L [facility] Anion Gap 18(H) 5 - 15 mmol/L [facility] Calcium 8.9 8.5 - 10.5 mg/dL [facility] Est Glomerular Filtration Rate >60 >=60 [facility] Comment: The reported eGFR should be multiplied by 1.2 for patients. The MDRD is not an appropriate measure of renal function for patients with body mass extremes or in patients with acute kidney failure. http://SeeWhy/DHnkdep http://SeeWhy/DHMCnkf Blood specimen (specimen) 11/09/2017 8:41 PM EDT 11/09/2017 8:46 PM EDT Narrative Resulting Agency Comment Spec In Lab Yossi Morin DO CHEMISTRY ORDERABLES [facility] [place] [address] * Sodium (11/03/2017 4:03 AM EDT) Sodium 140 135 - 145 mmol/L [facility] Blood specimen (specimen) 11/03/2017 4:03 AM EDT 11/03/2017 4:36 AM EDT Narrative Resulting Agency Comment Spec In Lab Juliet Medeiros APRN CHEMISTRY ORDERABLES Performing Organization Address City/[facility]/ZIP Co de Phone Number [facility] [place] [address] * Sodium (11/02/2017 7:38 AM EDT) Sodium 136 135 - 145 mmol/L [facility] Blood specimen (specimen) 11/02/2017 7:38 AM EDT 11/02/2017 8:15 AM EDT Narrative Resulting Agency Comment Spec In Lab Juliet Medeiros APRN CHEMISTRY ORDERABLES Performing Organization Address City/[facility]/ZIP Co de Phone Number [facility] [place] [address] * Sodium (11/01/2017 5:01 AM EDT) Sodium 138 135 - 145 mmol/L [facility] Blood specimen (specimen) 11/01/2017 5:01 AM EDT 11/01/2017 5:34 AM EDT Narrative Resulting Agency Comment Spec In Lab Dillon Koch MD CHEMISTRY ORDERABLES Performing Organization Address City/[facility]/ZIP Co de Phone Number [facility] [place] [address] * Sodium (10/31/2017 10:19 AM EDT) Sodium 139 135 - 145 mmol/L [facility] Blood specimen (specimen) 10/31/2017 10:19 AM EDT 10/31/2017 10:39 AM EDT Narrative Resulting Agency Comment Spec In Lab Dillon Koch MD CHEMISTRY ORDERABLES Performing Organization Address City/[facility]/ZIP Co de Phone Number [facility] [place] [address] * (ABNORMAL) Sodium (10/31/2017 6:37 AM EDT) Sodium 134(L) 135 - 145 mmol/L [facility] Blood specimen (specimen) 10/31/2017 6:37 AM EDT 10/31/2017 6:44 AM EDT Narrative Resulting Agency Comment Spec In Lab Dillon Koch MD CHEMISTRY ORDERABLES Performing Organization Address City/[facility]/ZIP Co de Phone Number [facility] [place] [address] * Sodium (10/30/2017 3:53 AM EDT) Sodium 135 135 - 145 mmol/L [facility] Blood specimen (specimen) 10/30/2017 3:53 AM EDT 10/30/2017 3:58 AM EDT Narrative Resulting Agency Comment Spec In Lab Juliet Medeiros APRN CHEMISTRY ORDERABLES Performing Organization Address [facility] Co de Phone Number [facility] [place] [address] * Sodium (10/29/2017 5:54 AM EDT) Sodium 138 135 - 145 mmol/L [facility] Comment:Called by: [facility], Read back by: Jeannette, Date/Time:10/29/17 08:24. Blood specimen (specimen) 10/29/2017 5:54 AM EDT 10/29/2017 6:22 AM EDT Narrative Resulting Agency Comment Spec In Lab Juliet Medeiros APRN CHEMISTRY ORDERABLES Performing Organization Address [facility] Co de Phone Number [facility] [place] [address] * Basic Metabolic Panel (non-fasting) (10/28/2017 9:22 AM EDT) Glucose 116 65 - 199 mg/dL [facility] Comment:Diabetes: >=200 mg/d L plus symptoms Blood Urea Nitrogen 15 10 - 20 mg/dL [facility] Creatinine 0.85 0.80 - 1.50 mg/dL [facility] Sodium 137 135 - 145 mmol/L [facility] Potassium 3.7 3.5 - 5.0 mmol/L [facility] Comment: Please note: ??Patients with WBC >100,000 may have falsely elevated Potassium levels. ??For accurate Potassium quantification in these patients send serum separator tube (gold top) for subsequent determinations. ??Contact the Clinical Chemistry Laboratory if there are any questions. Chloride 99 98 - 107 mmol/L [facility] Carbon Dioxide 24 22 - 31 mmol/L [facility] Anion Gap 14 5 - 15 mmol/L [facility] Calcium 9.1 8.5 - 10.5 mg/dL [facility] Est Glomerular Filtration Rate >60 >=60 [facility] Comment: The reported eGFR should be multiplied by 1.2 for patients. The MDRD is not an appropriate measure of renal function for patients with body mass extremes or in patients with acute kidney failure. http://SeeWhy/DHnkdep http://SeeWhy/DHMCnkf Blood specimen (specimen) 10/28/2017 9:22 AM EDT 10/28/2017 9:31 AM EDT Narrative Resulting Agency Comment Spec In Lab Dillon Koch MD CHEMISTRY ORDERABLES [facility] [place] [address] * BMP w/fasting Glucose (10/28/2017 3:24 AM EDT) Glucose Fasting 82 65 - 99 mg/dL [facility] Comment: ?Fasting* Glucose Interpretive Criteria [...] of Diabetes Mellitus, Position Statement from the [place] [employer]. ??Diabetes Care, Volume 33, Supplement 1, Jul 2009 Blood Urea Nitrogen 16 10 - 20 mg/dL [facility] Creatinine 0.85 0.80 - 1.50 mg/dL [facility] Sodium 139 135 - 145 mmol/L [facility] Potassium 3.7 3.5 - 5.0 mmol/L [facility] Comment: Please note: ??Patients with WBC >100,000 may have falsely elevated Potassium levels. ??For accurate Potassium quantification in these patients send serum separator tube (gold top) for subsequent determinations. ??Contact the Clinical Chemistry Laboratory if there are any questions. Chloride 99 98 - 107 mmol/L [facility] Carbon Dioxide 26 22 - 31 mmol/L [facility] Anion Gap 14 5 - 15 mmol/L [facility] Calcium 8.9 8.5 - 10.5 mg/dL [facility] Est Glomerular Filtration Rate >60 >=60 [facility] Comment: The reported eGFR should be multiplied by 1.2 for patients. The MDRD is not an appropriate measure of renal function for patients with body mass extremes or in patients with acute kidney failure. http://RightsFlow.Stellarray/DHnkdep http://RightsFlow.Stellarray/DHMCnkf Blood specimen (specimen) 10/28/2017 3:24 AM EDT 10/28/2017 3:42 AM EDT Narrative Resulting Agency Comment Spec In Lab Isabel Donis MD CHEMISTRY ORDERABLES [facility] [place] [address] * Sodium (10/27/2017 6:16 AM EDT) Sodium 140 135 - 145 mmol/L [facility] Blood specimen (specimen) 10/27/2017 6:16 AM EDT 10/27/2017 6:21 AM EDT Narrative Resulting Agency Comment Spec In Lab Juliet Medeiros MAX CHEMISTRY ORDERABLES [facility] [place] [address] * BMP w/fasting Glucose (10/25/2017 3:16 AM EDT) Glucose Fasting 79 65 - 99 mg/dL [facility] Comment: ?Fasting* Glucose Interpretive Criteria [...] of Diabetes Mellitus, Position Statement from the [place] [employer]. ??Diabetes Care, Volume 33, Supplement 1, Jul 2009 Blood Urea Nitrogen 17 10 - 20 mg/dL [facility] Creatinine 0.90 0.80 - 1.50 mg/dL [facility] Sodium 139 135 - 145 mmol/L [facility] Potassium 3.7 3.5 - 5.0 mmol/L [facility] Comment: Please note: ??Patients with WBC >100,000 may have falsely elevated Potassium levels. ??For accurate Potassium quantification in these patients send serum separator tube (gold top) for subsequent determinations. ??Contact the Clinical Chemistry Laboratory if there are any questions. Chloride 100 98 - 107 mmol/L [facility] Carbon Dioxide 26 22 - 31 mmol/L [facility] Anion Gap 13 5 - 15 mmol/L [facility] Calcium 9.2 8.5 - 10.5 mg/dL [facility] Est Glomerular Filtration Rate >60 >=60 [facility] Comment: The reported eGFR should be multiplied by 1.2 for patients. The MDRD is not an appropriate measure of renal function for patients with body mass extremes or in patients with acute kidney failure. http://SeeWhy/DHnkdep http://SeeWhy/DHMCnkf Blood specimen (specimen) 10/25/2017 3:16 AM EDT 10/25/2017 3:42 AM EDT Narrative Resulting Agency Comment Spec In Lab Isabel Donis MD CHEMISTRY ORDERABLES [facility] [place] [address] * (ABNORMAL) Differential, Automated (10/22/2017 5:02 AM EDT) Neutrophil % 47.9 % [facility] Neutrophil Absolute 3.14 1.70 - 6.10 x10(3)/mc L [facility] Lymph % 36.0 % [facility] Lymphocytes Abs 2.4 0.9 - 3.2 x10(3)/mc L [facility] Monocyte % 10.7 % [facility] Monocyte Abs 0.7 0.3 - 0.9 x10(3)/mc L [facility] Eos % 3.7 % [facility] Eosinophils Abs 0.2 0.0 - 0.4 x10(3)/mc L [facility] Basophil % 0.8 % [facility] Baso Absolute 0.0 0.0 - 0.1 x10(3)/mc L [facility] Immature Gran % 0.90 % [facility] Comment: Immature granulocytes(IG's)percentage and absolute count will include metamyelocytes, myelocytes, and promyelocytes. Blood smears from CBCs yielding IG's will be scanned manually for concordance. If this scan disagrees with the automated IG or if promyelocytes are noted, a manual differential will be performed. Immature Gran Absolute 0.06(H) 0.00 - 0.04 x10(3)/ L [facility] Blood specimen (specimen) 10/22/2017 5:02 AM EDT 10/22/2017 5:10 AM EDT Narrative Resulting Agency Comment Spec In Lab Kemi Camp MAX HEMATOLOGY ORDERA BLES [facility] [place] [address] * (ABNORMAL) Hemogram (10/22/2017 5:02 AM EDT) White Blood Cell 6.6 4.0 - 9.5 x10(3)/[facility] LABORATORY Red Blood Cell 5.06 4.58 - 5.54 x10(6)/ L [facility] Hemoglobin 12.9(L) 13.7 - 16.5 gm/dL [facility] Hematocrit 40.5 40.5 - 48.5 % [facility] Mean Cell Volume 80.0(L) 82.9 - 93.1 fL [facility] Comment: This result has been called to HOLLEY MEI by Desean Pope on 10 22 2017 at 0600, and has been read back. Mean Cell Hemoglobin 25.5(L) 27.5 - 32.1 pg [facility] Mean Cell Hemoglobin Concentration 31.9(L) 32.0 - 35.7 gm/dL [facility] Platelet 339 145 - 357 x10(3)/mc L [facility] RDW Standard Deviation 45.7(H) 36.0 - 45.0 fL [facility] RDW coefficient of variation 15.8(H) 11.4 - 13.8 % [facility] Mean Platelet Volume 9.8 7.6 - 12.9 fL [facility] NRBC% auto 0.0 % [facility] NRBC Absolute 0.000 0.000 - 0.000 x10(3)/ L [facility] Blood specimen (specimen) 10/22/2017 5:02 AM EDT 10/22/2017 5:10 AM EDT Narrative Resulting Agency Comment Spec In Lab Kemipatricia Camp MAX HEMATOLOGY ORDERA BLES [facility] [place] [address] * (ABNORMAL) BMP w/fasting Glucose (10/22/2017 5:02 AM EDT) Glucose Fasting 103(H) 65 - 99 mg/dL [facility] Comment: ?Fasting* Glucose Interpretive Criteria [...] of Diabetes Mellitus, Position Statement from the [place] [employer]. ??Diabetes Care, Volume 33, Supplement 1, Jul 2009 Blood Urea Nitrogen 11 10 - 20 mg/dL [facility] Creatinine 0.74(L) 0.80 - 1.50 mg/dL [facility] Sodium 141 135 - 145 mmol/L [facility] Potassium 4.0 3.5 - 5.0 mmol/L [facility] Comment: Please note: ??Patients with WBC >100,000 may have falsely elevated Potassium levels. ??For accurate Potassium quantification in these patients send serum separator tube (gold top) for subsequent determinations. ??Contact the Clinical Chemistry Laboratory if there are any questions. Chloride 103 98 - 107 mmol/L [facility] Carbon Dioxide 22 22 - 31 mmol/L [facility] Anion Gap 16(H) 5 - 15 mmol/L [facility] Calcium 9.2 8.5 - 10.5 mg/dL [facility] Est Glomerular Filtration Rate >60 >=60 [facility] Comment: The reported eGFR should be multiplied by 1.2 for patients. The MDRD is not an appropriate measure of renal function for patients with body mass extremes or in patients with acute kidney failure. [email or web address] [email or web address] Blood specimen (specimen) 10/22/2017 5:02 AM EDT 10/22/2017 5:10 AM EDT Narrative Resulting Agency Comment Spec In Lab Kemi Camp APRN CHEMISTRY ORDERAB LES [facility] [place] [address] * (ABNORMAL) BMP w/fasting Glucose (10/21/2017 4:03 AM EDT) Glucose Fasting 90 65 - 99 mg/dL [facility] Comment: ?Fasting* Glucose Interpretive Criteria [...] of Diabetes Mellitus, Position Statement from the [place] [employer]. ??Diabetes Care, Volume 33, [...] of Diabetes Mellitus, Position Statement from the [place] [employer]. ??Diabetes Care, Volume 33, Supplement 1, Jul 2009 Corrected from 90 mg/dL on 10/21/17 05:22 by Hannah Saenz Blood Urea Nitrogen 16 10 - 20 mg/dL [facility] Creatinine 0.91 0.80 - 1.50 mg/dL [facility] Sodium 134(L) 135 - 145 mmol/L [facility] Potassium 4.3 3.5 - 5.0 mmol/L [facility] Comment: Please note: ??Patients with WBC >100,000 may have falsely elevated Potassium levels. ??For accurate Potassium quantification in these patients send serum separator tube (gold top) for subsequent determinations. ??Contact the Clinical Chemistry Laboratory if there are any questions. Chloride 95(L) 98 - 107 mmol/L [facility] Carbon Dioxide 23 22 - 31 mmol/L [facility] Anion Gap 16(H) 5 - 15 mmol/L [facility] Calcium 9.5 8.5 - 10.5 mg/dL [facility] Est Glomerular Filtration Rate >60 >=60 [facility] Comment: The reported eGFR should be multiplied by 1.2 for patients. The MDRD is not an appropriate measure of renal function for patients with body mass extremes or in patients with acute kidney failure. [email or web address] Blood specimen (specimen) 10/21/2017 4:03 AM EDT 10/21/2017 4:11 AM EDT Narrative Resulting Agency Comment Spec In Lab Kemi Camp APRN CHEMISTRY ORDERAB LES [facility] [place] [address] * CT Face wo Contrast (10/20/2017 12:07 [...] [employer] of the mandible. Dillon Koch MD [facility] CT ORDERABLES * (ABNORMAL) Basic Metabolic Panel (non-fasting) (10/19/2017 9:55 AM EDT) Glucose 92 65 - 199 mg/dL [facility] Comment:Diabetes: >=200 mg/d L plus symptoms Blood Urea Nitrogen 16 10 - 20 mg/dL [facility] Creatinine 0.98 0.80 - 1.50 mg/dL [facility] Sodium 141 135 - 145 mmol/L [facility] Potassium 3.8 3.5 - 5.0 mmol/L [facility] Comment: Please note: ??Patients with WBC >100,000 may have falsely elevated Potassium levels. ??For accurate Potassium quantification in these patients send serum separator tube (gold top) for subsequent determinations. ??Contact the Clinical Chemistry Laboratory if there are any questions. Chloride 101 98 - 107 mmol/L [facility] Carbon Dioxide 23 22 - 31 mmol/L [facility] Anion Gap 17(H) 5 - 15 mmol/L [facility] Calcium 9.1 8.5 - 10.5 mg/dL [facility] Est Glomerular Filtration Rate >60 >=60 [facility] Comment: The reported eGFR should be multiplied by 1.2 for patients. The MDRD is not an appropriate measure of renal function for patients with body mass extremes or in patients with acute kidney failure. [email or web address] [email or web address] Blood specimen (specimen) 10/19/2017 9:55 AM EDT 10/19/2017 9:59 AM EDT Narrative Resulting Agency Comment Spec In Lab Isabel Donis MD CHEMISTRY ORDERABLES [facility] [place] [address] * (ABNORMAL) Basic Metabolic Panel (non-fasting) (10/17/2017 6:27 PM EDT) Glucose 129 65 - 199 mg/dL [facility] Comment:Diabetes: >=200 mg/d L plus symptoms Blood Urea Nitrogen 15 10 - 20 mg/dL [facility] Creatinine 0.86 0.80 - 1.50 mg/dL [facility] Sodium 142 135 - 145 mmol/L [facility] Potassium Not Perf 3.5 - 5.0 mmol/L [facility] Comment: Unable to quantitate due to sample hemolysis. ??Sample redraw suggested. Please note: ??Patients with WBC >100,000 may have falsely elevated Potassium levels. ??For accurate Potassium quantification in these patients send serum separator tube (gold top) for subsequent determinations. ??Contact the Clinical Chemistry Laboratory if there are any questions. Chloride 102 98 - 107 mmol/L [facility] Carbon Dioxide 22 22 - 31 mmol/L [facility] Anion Gap 18(H) 5 - 15 mmol/L [facility] Calcium 8.8 8.5 - 10.5 mg/dL [facility] Est Glomerular Filtration Rate >60 >=60 [facility] Comment: The reported eGFR should be multiplied by 1.2 for patients. The MDRD is not an appropriate measure of renal function for patients with body mass extremes or in patients with acute kidney failure. [email or web address] Blood specimen (specimen) 10/17/2017 6:27 PM EDT 10/17/2017 7:26 PM EDT Narrative Resulting Agency Comment Spec In Lab Kalpana Rubin MD CHEMISTRY ORDERABLES [facility] [place] [address] * Basic Metabolic Panel (non-fasting) (10/16/2017 10:26 AM EDT) Glucose 124 65 - 199 mg/dL [facility] Comment:Diabetes: >=200 mg/d L plus symptoms Blood Urea Nitrogen 16 10 - 20 mg/dL [facility] Creatinine 0.86 0.80 - 1.50 mg/dL [facility] Sodium 141 135 - 145 mmol/L [facility] Potassium 4.0 3.5 - 5.0 mmol/L [facility] Comment: Please note: ??Patients with WBC >100,000 may have falsely elevated Potassium levels. ??For accurate Potassium quantification in these patients send serum separator tube (gold top) for subsequent determinations. ??Contact the Clinical Chemistry Laboratory if there are any questions. Chloride 104 98 - 107 mmol/L [facility] Carbon Dioxide 22 22 - 31 mmol/L [facility] Anion Gap 15 5 - 15 mmol/L [facility] Calcium 9.2 8.5 - 10.5 mg/dL [facility] Est Glomerular Filtration Rate >60 >=60 [facility] Comment: The reported eGFR should be multiplied by 1.2 for patients. The MDRD is not an appropriate measure of renal function for patients with body mass extremes or in patients with acute kidney failure. [email or web address] Blood specimen (specimen) 10/16/2017 10:26 AM EDT 10/16/2017 10:34 AM EDT Narrative Resulting Agency Comment Spec In Lab Dillon Koch MD CHEMISTRY ORDERABLES [facility] [place] [address] * Basic Metabolic Panel (non-fasting) (10/15/2017 8:27 AM EDT) Glucose 85 65 - 199 mg/dL [facility] Comment:Diabetes: >=200 mg/d L plus symptoms Blood Urea Nitrogen 16 10 - 20 mg/dL [facility] Creatinine 0.99 0.80 - 1.50 mg/dL [facility] Sodium 140 135 - 145 mmol/L [facility] Potassium 3.7 3.5 - 5.0 mmol/L [facility] Comment: Please note: ??Patients with WBC >100,000 may have falsely elevated Potassium levels. ??For accurate Potassium quantification in these patients send serum separator tube (gold top) for subsequent determinations. ??Contact the Clinical Chemistry Laboratory if there are any questions. Chloride 101 98 - 107 mmol/L [facility] Carbon Dioxide 24 22 - 31 mmol/L [facility] Anion Gap 15 5 - 15 mmol/L [facility] Calcium 8.9 8.5 - 10.5 mg/dL [facility] Est Glomerular Filtration Rate >60 >=60 [facility] Comment: The reported eGFR should be multiplied by 1.2 for patients. The MDRD is not an appropriate measure of renal function for patients with body mass extremes or in patients with acute kidney failure. [email or web address] [email or web address] Blood specimen (specimen) 10/15/2017 8:27 AM EDT 10/15/2017 8:33 AM EDT Narrative Resulting Agency Comment Spec In Lab Dillon Koch MD CHEMISTRY ORDERABLES [facility] [place] [address] * (ABNORMAL) Basic Metabolic Panel (non-fasting) (10/14/2017 1:36 PM EDT) Glucose 99 65 - 199 mg/dL [facility] Comment:Diabetes: >=200 mg/d L plus symptoms Blood Urea Nitrogen 18 10 - 20 mg/dL [facility] Creatinine 0.85 0.80 - 1.50 mg/dL [facility] Sodium 140 135 - 145 mmol/L [facility] Potassium 3.6 3.5 - 5.0 mmol/L [facility] Comment: Please note: ??Patients with WBC >100,000 may have falsely elevated Potassium levels. ??For accurate Potassium quantification in these patients send serum separator tube (gold top) for subsequent determinations. ??Contact the Clinical Chemistry Laboratory if there are any questions. Chloride 100 98 - 107 mmol/L [facility] Carbon Dioxide 23 22 - 31 mmol/L [facility] Anion Gap 17(H) 5 - 15 mmol/L [facility] Calcium 9.3 8.5 - 10.5 mg/dL [facility] Est Glomerular Filtration Rate >60 >=60 [facility] Comment: The reported eGFR should be multiplied by 1.2 for patients. The MDRD is not an appropriate measure of renal function for patients with body mass extremes or in patients with acute kidney failure. [email or web address] [email or web address] Blood specimen (specimen) 10/14/2017 1:36 PM EDT 10/14/2017 1:44 PM EDT Narrative Resulting Agency Comment Spec In Lab Dillon Koch MD CHEMISTRY ORDERABLES [facility] [place] [id number] * Basic Metabolic Panel (non-fasting) (10/13/2017 11:54 PM EDT) Glucose 95 65 - 199 mg/dL [facility] Comment:Diabetes: >=200 mg/d L plus symptoms Blood Urea Nitrogen 15 10 - 20 mg/dL [facility] Creatinine 0.88 0.80 - 1.50 mg/dL [facility] Sodium 140 135 - 145 mmol/L [facility] Potassium 3.8 3.5 - 5.0 mmol/L [facility] Comment: Please note: ??Patients with WBC >100,000 may have falsely elevated Potassium levels. ??For accurate Potassium quantification in these patients send serum separator tube (gold top) for subsequent determinations. ??Contact the Clinical Chemistry Laboratory if there are any questions. Chloride 103 98 - 107 mmol/L [facility] Carbon Dioxide 24 22 - 31 mmol/L [facility] Anion Gap 13 5 - 15 mmol/L [facility] Calcium 8.6 8.5 - 10.5 mg/dL [facility] Est Glomerular Filtration Rate >60 >=60 [facility] Comment: The reported eGFR should be multiplied by 1.2 for patients. The MDRD is not an appropriate measure of renal function for patients with body mass extremes or in patients with acute kidney failure. [email or web address] [email or web address] Blood specimen (specimen) 10/13/2017 11:54 PM EDT 10/13/2017 11:57 PM EDT Narrative Resulting Agency Comment Spec In Lab Dillon Koch MD CHEMISTRY ORDERABLES [facility] [place] [address] * (ABNORMAL) Basic Metabolic Panel (non-fasting) (10/13/2017 6:12 PM EDT) Glucose 107 65 - 199 mg/dL [facility] Comment:Diabetes: >=200 mg/d L plus symptoms Blood Urea Nitrogen 14 10 - 20 mg/dL [facility] Creatinine 0.69(L) 0.80 - 1.50 mg/dL [facility] Sodium 143 135 - 145 mmol/L [facility] Potassium 3.8 3.5 - 5.0 mmol/L [facility] Comment: Please note: ??Patients with WBC >100,000 may have falsely elevated Potassium levels. ??For accurate Potassium quantification in these patients send serum separator tube (gold top) for subsequent determinations. ??Contact the Clinical Chemistry Laboratory if there are any questions. Chloride 104 98 - 107 mmol/L [facility] Carbon Dioxide 23 22 - 31 mmol/L [facility] Anion Gap 16(H) 5 - 15 mmol/L [facility] Calcium 8.7 8.5 - 10.5 mg/dL [facility] Est Glomerular Filtration Rate >60 >=60 [facility] Comment: The reported eGFR should be multiplied by 1.2 for patients. The MDRD is not an appropriate measure of renal function for patients with body mass extremes or in patients with acute kidney failure. [email or web address] [email or web address] Blood specimen (specimen) 10/13/2017 6:12 PM EDT 10/13/2017 6:18 PM EDT Narrative Resulting Agency Comment Spec In Lab Dillon Koch MD CHEMISTRY ORDERABLES [facility] [place] [address] * XR Pelvis Judet or In Out [...] EDT) Glucose 93 65 - 199 mg/dL [facility] Comment:Diabetes: >=200 mg/d L plus symptoms Blood Urea Nitrogen 16 10 - 20 mg/dL [facility] Creatinine 0.74(L) 0.80 - 1.50 mg/dL [facility] Sodium 144 135 - 145 mmol/L [facility] Potassium 3.9 3.5 - 5.0 mmol/L [facility] Comment: Please note: ??Patients with WBC >100,000 may have falsely elevated Potassium levels. ??For accurate Potassium quantification in these patients send serum separator tube (gold top) for subsequent determinations. ??Contact the Clinical Chemistry Laboratory if there are any questions. Chloride 105 98 - 107 mmol/L [facility] Carbon Dioxide 23 22 - 31 mmol/L [facility] Anion Gap 16(H) 5 - 15 mmol/L [facility] Calcium 9.1 8.5 - 10.5 mg/dL [facility] Est Glomerular Filtration Rate >60 >=60 [facility] Comment: The reported eGFR should be multiplied by 1.2 for patients. The MDRD is not an appropriate measure of renal function for patients with body mass extremes or in patients with acute kidney failure. [email or web address] [email or web address] Blood specimen (specimen) 10/13/2017 3:34 AM EDT 10/13/2017 4:00 AM EDT Narrative Resulting Agency Comment Spec In Lab Dillon Koch MD CHEMISTRY ORDERABLES [facility] [place] [address] * (ABNORMAL) Basic Metabolic Panel (non-fasting) (10/12/2017 7:09 PM EDT) Glucose 80 65 - 199 mg/dL [facility] Comment:Diabetes: >=200 mg/d L plus symptoms Blood Urea Nitrogen 17 10 - 20 mg/dL [facility] Creatinine 0.80 0.80 - 1.50 mg/dL [facility] Sodium 148(H) 135 - 145 mmol/L [facility] Potassium 3.6 3.5 - 5.0 mmol/L [facility] Comment: Please note: ??Patients with WBC >100,000 may have falsely elevated Potassium levels. ??For accurate Potassium quantification in these patients send serum separator tube (gold top) for subsequent determinations. ??Contact the Clinical Chemistry Laboratory if there are any questions. Chloride 106 98 - 107 mmol/L [facility] Carbon Dioxide 26 22 - 31 mmol/L [facility] Anion Gap 16(H) 5 - 15 mmol/L [facility] Calcium 9.2 8.5 - 10.5 mg/dL [facility] Est Glomerular Filtration Rate >60 >=60 [facility] Comment: The reported eGFR should be multiplied by 1.2 for patients. The MDRD is not an appropriate measure of renal function for patients with body mass extremes or in patients with acute kidney failure. [email or web address] [email or web address] Blood specimen (specimen) 10/12/2017 7:09 PM EDT 10/13/2017 5:09 AM EDT Narrative Resulting Agency Comment Spec In Lab Dillon Koch MD CHEMISTRY ORDERABLES [facility] [place] [address] * (ABNORMAL) Basic Metabolic Panel (non-fasting) (10/12/2017 11:33 AM EDT) Glucose 117 65 - 199 mg/dL [facility] Comment:Diabetes: >=200 mg/d L plus symptoms Blood Urea Nitrogen 19 10 - 20 mg/dL [facility] Creatinine 0.78(L) 0.80 - 1.50 mg/dL [facility] Sodium 146(H) 135 - 145 mmol/L [facility] Potassium 3.8 3.5 - 5.0 mmol/L [facility] Comment: Please note: ??Patients with WBC >100,000 may have falsely elevated Potassium levels. ??For accurate Potassium quantification in these patients send serum separator tube (gold top) for subsequent determinations. ??Contact the Clinical Chemistry Laboratory if there are any questions. Chloride 108(H) 98 - 107 mmol/L [facility] Carbon Dioxide 22 22 - 31 mmol/L [facility] Anion Gap 16(H) 5 - 15 mmol/L [facility] Calcium 9.2 8.5 - 10.5 mg/dL [facility] Est Glomerular Filtration Rate >60 >=60 [facility] Comment: The reported eGFR should be multiplied by 1.2 for patients. The MDRD is not an appropriate measure of renal function for patients with body mass extremes or in patients with acute kidney failure. [email or web address] Blood specimen (specimen) 10/12/2017 11:33 AM EDT 10/12/2017 11:37 AM EDT Narrative Resulting Agency Comment Spec In Lab Dillon Koch MD CHEMISTRY ORDERABLES Performing Organization Address [facility]/ZIP Co de Phone Number [facility] [place] [address] * Basic Metabolic Panel (non-fasting) (10/12/2017 3:34 AM EDT) Glucose 106 65 - 199 mg/dL [facility] Comment:Diabetes: >=200 mg/d L plus symptoms Blood Urea Nitrogen 20 10 - 20 mg/dL [facility] Creatinine 0.93 0.80 - 1.50 mg/dL [facility] Sodium 145 135 - 145 mmol/L [facility] Potassium 3.6 3.5 - 5.0 mmol/L [facility] Comment: Please note: ??Patients with WBC >100,000 may have falsely elevated Potassium levels. ??For accurate Potassium quantification in these patients send serum separator tube (gold top) for subsequent determinations. ??Contact the Clinical Chemistry Laboratory if there are any questions. Chloride 104 98 - 107 mmol/L [facility] Carbon Dioxide 26 22 - 31 mmol/L [facility] Anion Gap 15 5 - 15 mmol/L [facility] Calcium 9.1 8.5 - 10.5 mg/dL [facility] Est Glomerular Filtration Rate >60 >=60 [facility] Comment: The reported eGFR should be multiplied by 1.2 for patients. The MDRD is not an appropriate measure of renal function for patients with body mass extremes or in patients with acute kidney failure. [email or web address] Blood specimen (specimen) 10/12/2017 3:34 AM EDT 10/12/2017 4:02 AM EDT Narrative Resulting Agency Comment Spec In Lab Dillon Koch MD CHEMISTRY ORDERABLES Performing Organization Address City/[facility]/ZIP Co de Phone Number [facility] [place] [address] * (ABNORMAL) Basic Metabolic Panel (non-fasting) (10/11/2017 8:48 PM EDT) Glucose 129 65 - 199 mg/dL [facility] Comment:Diabetes: >=200 mg/d L plus symptoms Blood Urea Nitrogen 22(H) 10 - 20 mg/dL [facility] Creatinine 1.03 0.80 - 1.50 mg/dL [facility] Sodium 143 135 - 145 mmol/L [facility] Potassium 4.0 3.5 - 5.0 mmol/L [facility] Comment: Please note: ??Patients with WBC >100,000 may have falsely elevated Potassium levels. ??For accurate Potassium quantification in these patients send serum separator tube (gold top) for subsequent determinations. ??Contact the Clinical Chemistry Laboratory if there are any questions. Chloride 102 98 - 107 mmol/L [facility] Carbon Dioxide 22 22 - 31 mmol/L [facility] Anion Gap 19(H) 5 - 15 mmol/L [facility] Calcium 9.3 8.5 - 10.5 mg/dL [facility] Est Glomerular Filtration Rate >60 >=60 [facility] Comment: The reported eGFR should be multiplied by 1.2 for patients. The MDRD is not an appropriate measure of renal function for patients with body mass extremes or in patients with acute kidney failure. [email or web address] Blood specimen (specimen) 10/11/2017 8:48 PM EDT 10/11/2017 8:51 PM EDT Narrative Resulting Agency Comment Spec In Lab Dillon Koch MD CHEMISTRY ORDERABLES [facility] [place] [address] * (ABNORMAL) Basic Metabolic Panel (non-fasting) (10/11/2017 11:46 AM EDT) Glucose 123 65 - 199 mg/dL [facility] Comment:Diabetes: >=200 mg/d L plus symptoms Blood Urea Nitrogen 20 10 - 20 mg/dL [facility] Creatinine 1.10 0.80 - 1.50 mg/dL [facility] Sodium 144 135 - 145 mmol/L [facility] Potassium 4.1 3.5 - 5.0 mmol/L [facility] Comment: Please note: ??Patients with WBC >100,000 may have falsely elevated Potassium levels. ??For accurate Potassium quantification in these patients send serum separator tube (gold top) for subsequent determinations. ??Contact the Clinical Chemistry Laboratory if there are any questions. Chloride 104 98 - 107 mmol/L [facility] Carbon Dioxide 22 22 - 31 mmol/L [facility] Anion Gap 18(H) 5 - 15 mmol/L [facility] Calcium 9.7 8.5 - 10.5 mg/dL [facility] Est Glomerular Filtration Rate >60 >=60 [facility] Comment: The reported eGFR should be multiplied by 1.2 for patients. The MDRD is not an appropriate measure of renal function for patients with body mass extremes or in patients with acute kidney failure. http://SeeWhy/DHnkdep http://SeeWhy/DHMCnkf Blood specimen (specimen) 10/11/2017 11:46 AM EDT 10/11/2017 11:54 AM EDT Narrative Resulting Agency Comment Spec In Lab Dillon Koch MD CHEMISTRY ORDERABLES [facility] [place] [address] * (ABNORMAL) Basic Metabolic Panel (non-fasting) (10/11/2017 6:05 AM EDT) Glucose 84 65 - 199 mg/dL [facility] Comment:Diabetes: >=200 mg/d L plus symptoms Blood Urea Nitrogen 21(H) 10 - 20 mg/dL [facility] Creatinine 1.09 0.80 - 1.50 mg/dL [facility] Sodium 151(H) 135 - 145 mmol/L [facility] Potassium 3.8 3.5 - 5.0 mmol/L [facility] Comment: Please note: ??Patients with WBC >100,000 may have falsely elevated Potassium levels. ??For accurate Potassium quantification in these patients send serum separator tube (gold top) for subsequent determinations. ??Contact the Clinical Chemistry Laboratory if there are any questions. Chloride 109(H) 98 - 107 mmol/L [facility] Carbon Dioxide 24 22 - 31 mmol/L [facility] Anion Gap 18(H) 5 - 15 mmol/L [facility] Calcium 9.5 8.5 - 10.5 mg/dL [facility] Est Glomerular Filtration Rate >60 >=60 [facility] Comment: The reported eGFR should be multiplied by 1.2 for patients. The MDRD is not an appropriate measure of renal function for patients with body mass extremes or in patients with acute kidney failure. [email or web address]/DHnkdep http://SeeWhy/[email or web address] Blood specimen (specimen) 10/11/2017 6:05 AM EDT 10/11/2017 6:38 AM EDT Narrative Resulting Agency Comment Spec In Lab Dillon Koch MD CHEMISTRY ORDERABLES [facility] [place] [address] * (ABNORMAL) Basic Metabolic Panel (non-fasting) (10/10/2017 8:05 PM EDT) Glucose 107 65 - 199 mg/dL [facility] Comment:Diabetes: >=200 mg/d L plus symptoms Blood Urea Nitrogen 24(H) 10 - 20 mg/dL [facility] Creatinine 1.35 0.80 - 1.50 mg/dL [facility] Sodium 153(H) 135 - 145 mmol/L [facility] Potassium 3.9 3.5 - 5.0 mmol/L [facility] Comment: Please note: ??Patients with WBC >100,000 may have falsely elevated Potassium levels. ??For accurate Potassium quantification in these patients send serum separator tube (gold top) for subsequent determinations. ??Contact the Clinical Chemistry Laboratory if there are any questions. Chloride 112(H) 98 - 107 mmol/L [facility] Carbon Dioxide 23 22 - 31 mmol/L [facility] Anion Gap 18(H) 5 - 15 mmol/L [facility] Calcium 9.5 8.5 - 10.5 mg/dL [facility] Est Glomerular Filtration Rate >60 >=60 [facility] Comment: The reported eGFR should be multiplied by 1.2 for patients. The MDRD is not an appropriate measure of renal function for patients with body mass extremes or in patients with acute kidney failure. http://SeeWhy/DHnkdep http://SeeWhy/DHMCnkf Blood specimen (specimen) 10/10/2017 8:05 PM EDT 10/10/2017 8:11 PM EDT Narrative Resulting Agency Comment Spec In Lab Dillon Koch MD CHEMISTRY ORDERABLES [facility] [place] [address] * (ABNORMAL) Basic Metabolic Panel (non-fasting) (10/10/2017 11:24 AM EDT) Glucose 96 65 - 199 mg/dL [facility] Comment:Diabetes: >=200 mg/d L plus symptoms Blood Urea Nitrogen 20 10 - 20 mg/dL [facility] Creatinine 1.01 0.80 - 1.50 mg/dL [facility] Sodium 150(H) 135 - 145 mmol/L [facility] Potassium 3.7 3.5 - 5.0 mmol/L [facility] Comment: Please note: ??Patients with WBC >100,000 may have falsely elevated Potassium levels. ??For accurate Potassium quantification in these patients send serum separator tube (gold top) for subsequent determinations. ??Contact the Clinical Chemistry Laboratory if there are any questions. Chloride 111(H) 98 - 107 mmol/L [facility] Carbon Dioxide 23 22 - 31 mmol/L [facility] Anion Gap 16(H) 5 - 15 mmol/L [facility] Calcium 9.8 8.5 - 10.5 mg/dL [facility] Est Glomerular Filtration Rate >60 >=60 [facility] Comment: The reported eGFR should be multiplied by 1.2 for patients. The MDRD is not an appropriate measure of renal function for patients with body mass extremes or in patients with acute kidney failure. http://SeeWhy/DHnkdep http://SeeWhy/DHMCnkf Blood specimen (specimen) 10/10/2017 11:24 AM EDT 10/10/2017 11:45 AM EDT Narrative Resulting Agency Comment Spec In Lab Dillon Koch MD CHEMISTRY ORDERABLES [facility] [place] [address] * (ABNORMAL) Basic Metabolic Panel (non-fasting) (10/10/2017 3:14 AM EDT) Glucose 98 65 - 199 mg/dL [facility] Comment:Diabetes: >=200 mg/d L plus symptoms Blood Urea Nitrogen 20 10 - 20 mg/dL [facility] Creatinine 0.91 0.80 - 1.50 mg/dL [facility] Sodium 154(H) 135 - 145 mmol/L [facility] Comment:result rechecked-jt Potassium 4.2 3.5 - 5.0 mmol/L [facility] Comment: Please note: ??Patients with WBC >100,000 may have falsely elevated Potassium levels. ??For accurate Potassium quantification in these patients send serum separator tube (gold top) for subsequent determinations. ??Contact the Clinical Chemistry Laboratory if there are any questions. Chloride 114(H) 98 - 107 mmol/L [facility] Comment:result rechecked-jt Carbon Dioxide 23 22 - 31 mmol/L [facility] Anion Gap 17(H) 5 - 15 mmol/L [facility] Calcium 9.5 8.5 - 10.5 mg/dL [facility] Est Glomerular Filtration Rate >60 >=60 [facility] Comment: The reported eGFR should be multiplied by 1.2 for patients. The MDRD is not an appropriate measure of renal function for patients with body mass extremes or in patients with acute kidney failure. http://SeeWhy/DHnkdep http://SeeWhy/DHMCnkf Blood specimen (specimen) 10/10/2017 3:14 AM EDT 10/10/2017 3:23 AM EDT Narrative Resulting Agency Comment Spec In Lab Jevon Rosales MD CHEMISTRY ORDERABLES Performing Organization Address City/State/[facility] Co de Phone Number [facility] [place] [address] * XR Pelvis (Generic) (10/09/2017 4:52 PM [...] EDT) Glucose 91 65 - 199 mg/dL [facility] Comment:Diabetes: >=200 mg/d L plus symptoms Blood Urea Nitrogen 13 10 - 20 mg/dL [facility] Creatinine 0.82 0.80 - 1.50 mg/dL [facility] Sodium 135 135 - 145 mmol/L [facility] Potassium 3.6 3.5 - 5.0 mmol/L [facility] Comment: Please note: ??Patients with WBC >100,000 may have falsely elevated Potassium levels. ??For accurate Potassium quantification in these patients send serum separator tube (gold top) for subsequent determinations. ??Contact the Clinical Chemistry Laboratory if there are any questions. Chloride 97(L) 98 - 107 mmol/L [facility] Carbon Dioxide 22 22 - 31 mmol/L [facility] Anion Gap 16(H) 5 - 15 mmol/L [facility] Calcium 9.0 8.5 - 10.5 mg/dL [facility] Est Glomerular Filtration Rate >60 >=60 [facility] Comment: The reported eGFR should be multiplied by 1.2 for patients. The MDRD is not an appropriate measure of renal function for patients with body mass extremes or in patients with acute kidney failure. http://SeeWhy/EventRegistnkdep http://SeeWhy/[facility]SAnkf Blood specimen (specimen) 10/08/2017 4:15 AM EDT 10/08/2017 4:46 AM EDT Narrative Resulting Agency Comment Spec In Lab Jevon Rosales MD CHEMISTRY ORDERABLES [facility] [place] [address] * (ABNORMAL) Basic Metabolic Panel (non-fasting) (10/07/2017 4:15 AM EDT) Glucose 95 65 - 199 mg/dL [facility] Comment:Diabetes: >=200 mg/d L plus symptoms Blood Urea Nitrogen 12 10 - 20 mg/dL [facility] Creatinine 0.80 0.80 - 1.50 mg/dL [facility] Sodium 137 135 - 145 mmol/L [facility] Potassium 3.9 3.5 - 5.0 mmol/L [facility] Comment: Please note: ??Patients with WBC >100,000 may have falsely elevated Potassium levels. ??For accurate Potassium quantification in these patients send serum separator tube (gold top) for subsequent determinations. ??Contact the Clinical Chemistry Laboratory if there are any questions. Chloride 99 98 - 107 mmol/L [facility] Carbon Dioxide 22 22 - 31 mmol/L [facility] Anion Gap 16(H) 5 - 15 mmol/L [facility] Calcium 9.0 8.5 - 10.5 mg/dL [facility] Est Glomerular Filtration Rate >60 >=60 [facility] Comment: The reported eGFR should be multiplied by 1.2 for patients. The MDRD is not an appropriate measure of renal function for patients with body mass extremes or in patients with acute kidney failure. http://SeeWhy/DHnkdep http://SeeWhy/[facility]ULSAnkf Blood specimen (specimen) 10/07/2017 4:15 AM EDT 10/07/2017 4:24 AM EDT Narrative Resulting Agency Comment Spec In Lab Jevon Rosales MD CHEMISTRY ORDERABLES Performing Organization Address City/[facility]/ZIP Co de Phone Number [facility] [place] [address] * Lavender Tube HOLD (10/06/2017 4:05 AM EDT) Lavender Hold Sample in lab. [facility] Blood specimen (specimen) Venous Draw / Unknown 10/06/2017 4:05 AM EDT 10/06/2017 4:31 AM EDT Reba Linton MD HEMATOLOGY ORDER LYNDSEY Performing Organization Address [facility] Co de Phone Number [facility] [place] [address] * Basic Metabolic Panel (non-fasting) (10/06/2017 4:05 AM EDT) Glucose 103 65 - 199 mg/dL [facility] Comment:Diabetes: >=200 mg/d L plus symptoms Blood Urea Nitrogen 18 10 - 20 mg/dL [facility] Creatinine 0.88 0.80 - 1.50 mg/dL [facility] Sodium 145 135 - 145 mmol/L [facility] Potassium 3.7 3.5 - 5.0 mmol/L [facility] Comment: Please note: ??Patients with WBC >100,000 may have falsely elevated Potassium levels. ??For accurate Potassium quantification in these patients send serum separator tube (gold top) for subsequent determinations. ??Contact the Clinical Chemistry Laboratory if there are any questions. Chloride 104 98 - 107 mmol/L [facility] Carbon Dioxide 27 22 - 31 mmol/L [facility] Anion Gap 14 5 - 15 mmol/L [facility] Calcium 9.0 8.5 - 10.5 mg/dL [facility] Est Glomerular Filtration Rate >60 >=60 [facility] Comment: The reported eGFR should be multiplied by 1.2 for patients. The MDRD is not an appropriate measure of renal function for patients with body mass extremes or in patients with acute kidney failure. http://SeeWhy/DHnkdep http://SeeWhy/DHMCnkf Blood specimen (specimen) 10/06/2017 4:05 AM EDT 10/06/2017 4:31 AM EDT Narrative Resulting Agency Comment Spec In Lab Reba Linton MD CHEMISTRY ORDERA BLES [facility] [place] [address] * (ABNORMAL) Basic Metabolic Panel (non-fasting) (10/05/2017 2:35 PM EDT) Glucose 86 65 - 199 mg/dL [facility] Comment:Diabetes: >=200 mg/d L plus symptoms Blood Urea Nitrogen 18 10 - 20 mg/dL [facility] Creatinine 1.03 0.80 - 1.50 mg/dL [facility] Sodium 148(H) 135 - 145 mmol/L [facility] Potassium 4.0 3.5 - 5.0 mmol/L [facility] Comment: Please note: ??Patients with WBC >100,000 may have falsely elevated Potassium levels. ??For accurate Potassium quantification in these patients send serum separator tube (gold top) for subsequent determinations. ??Contact the Clinical Chemistry Laboratory if there are any questions. Chloride 105 98 - 107 mmol/L [facility] Carbon Dioxide 28 22 - 31 mmol/L [facility] Anion Gap 15 5 - 15 mmol/L [facility] Calcium 9.3 8.5 - 10.5 mg/dL [facility] Est Glomerular Filtration Rate >60 >=60 [facility] Comment: The reported eGFR should be multiplied by 1.2 for patients. The MDRD is not an appropriate measure of renal function for patients with body mass extremes or in patients with acute kidney failure. http://SeeWhy/DHnkdep http://SeeWhy/DHMCnkf Blood specimen (specimen) 10/05/2017 2:35 PM EDT 10/05/2017 2:46 PM EDT Narrative Resulting Agency Comment Spec In Lab Reba Linton MD CHEMISTRY ORDERA BLES [facility] [place] [address] * Differential, Automated (10/05/2017 5:55 AM EDT) Neutrophil % 42.4 % [facility] Neutrophil Absolute 2.71 1.70 - 6.10 x10(3)/[facility] Lymph % 38.2 % [facility] Lymphocytes Abs 2.4 0.9 - 3.2 x10(3)/[facility] Monocyte % 12.5 % [facility] Monocyte Abs 0.8 0.3 - 0.9 x10(3)/[facility] Eos % 5.5 % [facility] Eosinophils Abs 0.4 0.0 - 0.4 x10(3)/[facility] Basophil % 0.8 % [facility] Baso Absolute 0.0 0.0 - 0.1 x10(3)/[facility] Immature Gran % 0.60 % [facility] Comment: Immature granulocytes(IG's)percentage and absolute count will include metamyelocytes, myelocytes, and promyelocytes. Blood smears from CBCs yielding IG's will be scanned manually for concordance. If this scan disagrees with the automated IG or if promyelocytes are noted, a manual differential will be performed. Immature Gran Absolute 0.04 0.00 - 0.04 x10(3)/[facility] Blood specimen (specimen) 10/05/2017 5:55 AM EDT 10/05/2017 6:19 AM EDT Narrative Resulting Agency Comment Spec In Lab Reba Linton MD HEMATOLOGY ORDER LYNDSEY [facility] [place] [address] * (ABNORMAL) Hemogram (10/05/2017 5:55 AM EDT) White Blood Cell 6.4 4.0 - 9.5 x10(3)/[facility] Red Blood Cell 4.47(L) 4.58 - 5.54 x10(6)/mc L [facility] Hemoglobin 11.1(L) 13.7 - 16.5 gm/dL [facility] Hematocrit 38.6(L) 40.5 - 48.5 % [facility] Mean Cell Volume 86.4 82.9 - 93.1 fL [facility] Mean Cell Hemoglobin 24.8(L) 27.5 - 32.1 pg [facility] Mean Cell Hemoglobin Concentration 28.8(L) 32.0 - 35.7 gm/dL [facility] Platelet 281 145 - 357 x10(3)/[facility] RDW Standard Deviation 49.7(H) 36.0 - 45.0 [facility] RDW coefficient of variation 15.7(H) 11.4 - 13.8 % [facility] Mean Platelet Volume 9.4 7.6 - 12.9 [facility] NRBC% auto 0.0 % [facility] NRBC Absolute 0.000 0.000 - 0.000 x10(3)/ L [facility] Blood specimen (specimen) 10/05/2017 5:55 AM EDT 10/05/2017 6:19 AM EDT Narrative Resulting Agency Comment Spec In Lab Reba Linton MD HEMATOLOGY ORDER LYNDSEY Performing Organization Address City/[facility]/ZIP Co de Phone Number [facility] [place] [address] * (ABNORMAL) Basic Metabolic Panel (non-fasting) (10/05/2017 3:51 AM EDT) Glucose 105 65 - 199 mg/dL [facility] Comment:Diabetes: >=200 mg/d L plus symptoms Blood Urea Nitrogen 19 10 - 20 mg/dL [facility] Creatinine 1.07 0.80 - 1.50 mg/dL [facility] Sodium 148(H) 135 - 145 mmol/L [facility] Potassium 3.9 3.5 - 5.0 mmol/L [facility] Comment: Please note: ??Patients with WBC >100,000 may have falsely elevated Potassium levels. ??For accurate Potassium quantification in these patients send serum separator tube (gold top) for subsequent determinations. ??Contact the Clinical Chemistry Laboratory if there are any questions. Chloride 107 98 - 107 mmol/L [facility] Carbon Dioxide 27 22 - 31 mmol/L [facility] Anion Gap 14 5 - 15 mmol/L [facility] Calcium 9.4 8.5 - 10.5 mg/dL [facility] Est Glomerular Filtration Rate >60 >=60 [facility] Comment: The reported eGFR should be multiplied by 1.2 for patients. The MDRD is not an appropriate measure of renal function for patients with body mass extremes or in patients with acute kidney failure. [email or web address]/DHnkdep [email or web address] Blood specimen (specimen) 10/05/2017 3:51 AM EDT 10/05/2017 4:30 AM EDT Narrative Resulting Agency Comment Spec In Lab Reba Linton MD CHEMISTRY ORDERA BLES Performing Organization Address City/[facility]/ZIP Co de Phone Number [facility] [place] [address] * (ABNORMAL) Basic Metabolic Panel (non-fasting) (10/04/2017 7:09 PM EDT) Glucose 120 65 - 199 mg/dL [facility] Comment:Diabetes: >=200 mg/d L plus symptoms Blood Urea Nitrogen 19 10 - 20 mg/dL [facility] Creatinine 1.16 0.80 - 1.50 mg/dL [facility] Sodium 147(H) 135 - 145 mmol/L [facility] Potassium 3.7 3.5 - 5.0 mmol/L [facility] Comment: Please note: ??Patients with WBC >100,000 may have falsely elevated Potassium levels. ??For accurate Potassium quantification in these patients send serum separator tube (gold top) for subsequent determinations. ??Contact the Clinical Chemistry Laboratory if there are any questions. Chloride 104 98 - 107 mmol/L [facility] Carbon Dioxide 29 22 - 31 mmol/L [facility] Anion Gap 14 5 - 15 mmol/L [facility] Calcium 9.4 8.5 - 10.5 mg/dL [facility] Est Glomerular Filtration Rate >60 >=60 [facility] Comment: The reported eGFR should be multiplied by 1.2 for patients. The MDRD is not an appropriate measure of renal function for patients with body mass extremes or in patients with acute kidney failure. [email or web address]/DHnkdep [email or web address] Blood specimen (specimen) 10/04/2017 7:09 PM EDT 10/04/2017 7:13 PM EDT Narrative Resulting Agency Comment Spec In Lab Kemi Camp APRN CHEMISTRY ORDERAB LES Performing Organization Address City/[facility]/ZIP Co de Phone Number [facility] [place] [address] * (ABNORMAL) Basic Metabolic Panel (non-fasting) (10/04/2017 12:48 PM EDT) Glucose 92 65 - 199 mg/dL [facility] Comment:Diabetes: >=200 mg/d L plus symptoms Blood Urea Nitrogen 20 10 - 20 mg/dL [facility] Creatinine 0.97 0.80 - 1.50 mg/dL [facility] Sodium 147(H) 135 - 145 mmol/L [facility] Potassium 3.8 3.5 - 5.0 mmol/L [facility] Comment: Please note: ??Patients with WBC >100,000 may have falsely elevated Potassium levels. ??For accurate Potassium quantification in these patients send serum separator tube (gold top) for subsequent determinations. ??Contact the Clinical Chemistry Laboratory if there are any questions. Chloride 103 98 - 107 mmol/L [facility] Carbon Dioxide 29 22 - 31 mmol/L [facility] Anion Gap 15 5 - 15 mmol/L [facility] Calcium 9.5 8.5 - 10.5 mg/dL [facility] Est Glomerular Filtration Rate >60 >=60 [facility] Comment: The reported eGFR should be multiplied by 1.2 for patients. The MDRD is not an appropriate measure of renal function for patients with body mass extremes or in patients with acute kidney failure. [email or web address]/DHnkdep http://SeeWhy/[email or web address] Blood specimen (specimen) 10/04/2017 12:48 PM EDT 10/04/2017 1:00 PM EDT Narrative Resulting Agency Comment Spec In Lab Kemi Camp APRN CHEMISTRY ORDERAB LES [facility] [place] [address] * (ABNORMAL) Basic Metabolic Panel (non-fasting) (10/04/2017 5:01 AM EDT) Glucose 94 65 - 199 mg/dL [facility] Comment:Diabetes: >=200 mg/d L plus symptoms Blood Urea Nitrogen 20 10 - 20 mg/dL [facility] Creatinine 1.11 0.80 - 1.50 mg/dL [facility] Sodium 146(H) 135 - 145 mmol/L [facility] Potassium 3.8 3.5 - 5.0 mmol/L [facility] Comment: Please note: ??Patients with WBC >100,000 may have falsely elevated Potassium levels. ??For accurate Potassium quantification in these patients send serum separator tube (gold top) for subsequent determinations. ??Contact the Clinical Chemistry Laboratory if there are any questions. Chloride 103 98 - 107 mmol/L [facility] Carbon Dioxide 26 22 - 31 mmol/L [facility] Anion Gap 17(H) 5 - 15 mmol/L [facility] Calcium 9.5 8.5 - 10.5 mg/dL [facility] Est Glomerular Filtration Rate >60 >=60 [facility] Comment: The reported eGFR should be multiplied by 1.2 for patients. The MDRD is not an appropriate measure of renal function for patients with body mass extremes or in patients with acute kidney failure. http://SeeWhy/DHnkdep http://SeeWhy/[email or web address] Blood specimen (specimen) 10/04/2017 5:01 AM EDT 10/04/2017 5:44 AM EDT Narrative Resulting Agency Comment Spec In Lab Kemi Camp APRN CHEMISTRY ORDERAB LES [facility] [place] [address] * (ABNORMAL) Basic Metabolic Panel (non-fasting) (10/03/2017 7:48 PM EDT) Glucose 86 65 - 199 mg/dL [facility] Comment:Diabetes: >=200 mg/d L plus symptoms Blood Urea Nitrogen 21(H) 10 - 20 mg/dL [facility] Creatinine 1.03 0.80 - 1.50 mg/dL [facility] Sodium 148(H) 135 - 145 mmol/L [facility] Potassium 4.3 3.5 - 5.0 mmol/L [facility] Comment: Please note: ??Patients with WBC >100,000 may have falsely elevated Potassium levels. ??For accurate Potassium quantification in these patients send serum separator tube (gold top) for subsequent determinations. ??Contact the Clinical Chemistry Laboratory if there are any questions. Chloride 104 98 - 107 mmol/L [facility] Carbon Dioxide 29 22 - 31 mmol/L [facility] Anion Gap 15 5 - 15 mmol/L [facility] Calcium 9.6 8.5 - 10.5 mg/dL [facility] Est Glomerular Filtration Rate >60 >=60 [facility] Comment: The reported eGFR should be multiplied by 1.2 for patients. The MDRD is not an appropriate measure of renal function for patients with body mass extremes or in patients with acute kidney failure. http://SeeWhy/DHnkdep [email or web address]/[email or web address] Blood specimen (specimen) 10/03/2017 7:48 PM EDT 10/03/2017 7:52 PM EDT Narrative Resulting Agency Comment Spec In Lab Kemi Camp APRN CHEMISTRY ORDERAB LES [facility] [place] [address] * (ABNORMAL) Basic Metabolic Panel (non-fasting) (10/03/2017 11:36 AM EDT) Glucose 108 65 - 199 mg/dL [facility] Comment:Diabetes: >=200 mg/d L plus symptoms Blood Urea Nitrogen 15 10 - 20 mg/dL [facility] Creatinine 1.04 0.80 - 1.50 mg/dL [facility] Sodium 146(H) 135 - 145 mmol/L [facility] Potassium 3.7 3.5 - 5.0 mmol/L [facility] Comment: Please note: ??Patients with WBC >100,000 may have falsely elevated Potassium levels. ??For accurate Potassium quantification in these patients send serum separator tube (gold top) for subsequent determinations. ??Contact the Clinical Chemistry Laboratory if there are any questions. Chloride 102 98 - 107 mmol/L [facility] Carbon Dioxide 28 22 - 31 mmol/L [facility] Anion Gap 16(H) 5 - 15 mmol/L [facility] Calcium 9.9 8.5 - 10.5 mg/dL [facility] Est Glomerular Filtration Rate >60 >=60 [facility] Comment: The reported eGFR should be multiplied by 1.2 for patients. The MDRD is not an appropriate measure of renal function for patients with body mass extremes or in patients with acute kidney failure. http://[email or web address] [email or web address]/[email or web address] Blood specimen (specimen) 10/03/2017 11:36 AM EDT 10/03/2017 12:02 PM EDT Narrative Resulting Agency Comment Spec In Lab Kemi Camp APRN CHEMISTRY ORDERAB LES [facility] [place] [address] * (ABNORMAL) Basic Metabolic Panel (non-fasting) (10/03/2017 4:15 AM EDT) Glucose 96 65 - 199 mg/dL [facility] Comment:Diabetes: >=200 mg/d L plus symptoms Blood Urea Nitrogen 15 10 - 20 mg/dL [facility] Creatinine 0.86 0.80 - 1.50 mg/dL [facility] Sodium 146(H) 135 - 145 mmol/L [facility] Potassium 3.9 3.5 - 5.0 mmol/L [facility] Comment: Please note: ??Patients with WBC >100,000 may have falsely elevated Potassium levels. ??For accurate Potassium quantification in these patients send serum separator tube (gold top) for subsequent determinations. ??Contact the Clinical Chemistry Laboratory if there are any questions. Chloride 106 98 - 107 mmol/L [facility] Carbon Dioxide 26 22 - 31 mmol/L [facility] Anion Gap 14 5 - 15 mmol/L [facility] Calcium 9.5 8.5 - 10.5 mg/dL [facility] Est Glomerular Filtration Rate >60 >=60 [facility] Comment: The reported eGFR should be multiplied by 1.2 for patients. The MDRD is not an appropriate measure of renal function for patients with body mass extremes or in patients with acute kidney failure. http://[email or web address] [email or web address] Blood specimen (specimen) 10/03/2017 4:15 AM EDT 10/03/2017 4:25 AM EDT Narrative Resulting Agency Comment Spec In Lab Kemi Camp APRN CHEMISTRY ORDERAB LES [facility] [place] [address] * (ABNORMAL) Basic Metabolic Panel (non-fasting) (10/02/2017 7:12 PM EDT) Glucose 114 65 - 199 mg/dL [facility] Comment:Diabetes: >=200 mg/d L plus symptoms Blood Urea Nitrogen 15 10 - 20 mg/dL [facility] Creatinine 0.95 0.80 - 1.50 mg/dL [facility] Sodium 146(H) 135 - 145 mmol/L [facility] Potassium 4.0 3.5 - 5.0 mmol/L [facility] Comment: Please note: ??Patients with WBC >100,000 may have falsely elevated Potassium levels. ??For accurate Potassium quantification in these patients send serum separator tube (gold top) for subsequent determinations. ??Contact the Clinical Chemistry Laboratory if there are any questions. Chloride 105 98 - 107 mmol/L [facility] Carbon Dioxide 24 22 - 31 mmol/L [facility] Anion Gap 17(H) 5 - 15 mmol/L [facility] Calcium 9.3 8.5 - 10.5 mg/dL [facility] Est Glomerular Filtration Rate >60 >=60 [facility] Comment: The reported eGFR should be multiplied by 1.2 for patients. The MDRD is not an appropriate measure of renal function for patients with body mass extremes or in patients with acute kidney failure. http://[email or web address] [email or web address] Blood specimen (specimen) 10/02/2017 7:12 PM EDT 10/02/2017 7:24 PM EDT Narrative Resulting Agency Comment Spec In Lab Kemi Camp APRN CHEMISTRY ORDERAB LES [facility] [place] [address] * (ABNORMAL) Basic Metabolic Panel (non-fasting) (10/02/2017 12:14 PM EDT) Glucose 84 65 - 199 mg/dL [facility] Comment:Diabetes: >=200 mg/d L plus symptoms Blood Urea Nitrogen 13 10 - 20 mg/dL [facility] Creatinine 0.84 0.80 - 1.50 mg/dL [facility] Sodium 146(H) 135 - 145 mmol/L [facility] Potassium 4.3 3.5 - 5.0 mmol/L [facility] Comment: Please note: ??Patients with WBC >100,000 may have falsely elevated Potassium levels. ??For accurate Potassium quantification in these patients send serum separator tube (gold top) for subsequent determinations. ??Contact the Clinical Chemistry Laboratory if there are any questions. Chloride 105 98 - 107 mmol/L [facility] Carbon Dioxide 25 22 - 31 mmol/L [facility] Anion Gap 16(H) 5 - 15 mmol/L [facility] Calcium 9.5 8.5 - 10.5 mg/dL [facility] Est Glomerular Filtration Rate >60 >=60 [facility] Comment: The reported eGFR should be multiplied by 1.2 for patients. The MDRD is not an appropriate measure of renal function for patients with body mass extremes or in patients with acute kidney failure. http://[email or web address] [email or web address]/[email or web address] Blood specimen (specimen) 10/02/2017 12:14 PM EDT 10/02/2017 12:24 PM EDT Narrative Resulting Agency Comment Spec In Lab Kemi Camp APRN CHEMISTRY ORDERAB LES Performing Organization Address City/State/[facility] Co de Phone Number [facility] [place] [address] * Basic Metabolic Panel (non-fasting) (10/02/2017 5:45 AM EDT) Glucose 83 65 - 199 mg/dL [facility] Comment:Diabetes: >=200 mg/d L plus symptoms Blood Urea Nitrogen 15 10 - 20 mg/dL [facility] Creatinine 0.85 0.80 - 1.50 mg/dL [facility] Sodium 143 135 - 145 mmol/L [facility] Potassium 4.0 3.5 - 5.0 mmol/L [facility] Comment: Please note: ??Patients with WBC >100,000 may have falsely elevated Potassium levels. ??For accurate Potassium quantification in these patients send serum separator tube (gold top) for subsequent determinations. ??Contact the Clinical Chemistry Laboratory if there are any questions. Chloride 103 98 - 107 mmol/L [facility] Carbon Dioxide 26 22 - 31 mmol/L [facility] Anion Gap 14 5 - 15 mmol/L [facility] Calcium 9.4 8.5 - 10.5 mg/dL [facility] Est Glomerular Filtration Rate >60 >=60 [facility] Comment: The reported eGFR should be multiplied by 1.2 for patients. The MDRD is not an appropriate measure of renal function for patients with body mass extremes or in patients with acute kidney failure. http://[email or web address] [email or web address] Blood specimen (specimen) 10/02/2017 5:45 AM EDT 10/02/2017 6:07 AM EDT Narrative Resulting Agency Comment Spec In Lab Kemi Camp APRN CHEMISTRY ORDERAB LES [facility] [place] [address] * Basic Metabolic Panel (non-fasting) (10/01/2017 8:22 PM EDT) Glucose 105 65 - 199 mg/dL [facility] Comment:Diabetes: >=200 mg/d L plus symptoms Blood Urea Nitrogen 14 10 - 20 mg/dL [facility] Creatinine 0.95 0.80 - 1.50 mg/dL [facility] Sodium 139 135 - 145 mmol/L [facility] Potassium 4.3 3.5 - 5.0 mmol/L [facility] Comment: Please note: ??Patients with WBC >100,000 may have falsely elevated Potassium levels. ??For accurate Potassium quantification in these patients send serum separator tube (gold top) for subsequent determinations. ??Contact the Clinical Chemistry Laboratory if there are any questions. Chloride 100 98 - 107 mmol/L [facility] Carbon Dioxide 26 22 - 31 mmol/L [facility] Anion Gap 13 5 - 15 mmol/L [facility] Calcium 9.1 8.5 - 10.5 mg/dL [facility] Est Glomerular Filtration Rate >60 >=60 [facility] Comment: The reported eGFR should be multiplied by 1.2 for patients. The MDRD is not an appropriate measure of renal function for patients with body mass extremes or in patients with acute kidney failure. http://SeeWhy/DHnkdep [email or web address]/[facility]ULSAnkf Blood specimen (specimen) 10/01/2017 8:22 PM EDT 10/01/2017 8:35 PM EDT Narrative Resulting Agency Comment Spec In Lab Kemi Camp APRN CHEMISTRY ORDERAB LES [facility] [place] [address] * (ABNORMAL) Basic Metabolic Panel (non-fasting) (10/01/2017 12:08 PM EDT) Glucose 75 65 - 199 mg/dL [facility] Comment:Diabetes: >=200 mg/d L plus symptoms Blood Urea Nitrogen 12 10 - 20 mg/dL [facility] Creatinine 0.78(L) 0.80 - 1.50 mg/dL [facility] Sodium 137 135 - 145 mmol/L [facility] Potassium 4.3 3.5 - 5.0 mmol/L [facility] Comment: Please note: ??Patients with WBC >100,000 may have falsely elevated Potassium levels. ??For accurate Potassium quantification in these patients send serum separator tube (gold top) for subsequent determinations. ??Contact the Clinical Chemistry Laboratory if there are any questions. Chloride 97(L) 98 - 107 mmol/L [facility] Carbon Dioxide 24 22 - 31 mmol/L [facility] Anion Gap 16(H) 5 - 15 mmol/L [facility] Calcium 9.3 8.5 - 10.5 mg/dL [facility] Est Glomerular Filtration Rate >60 >=60 [facility] Comment: The reported eGFR should be multiplied by 1.2 for patients. The MDRD is not an appropriate measure of renal function for patients with body mass extremes or in patients with acute kidney failure. http://SeeWhy/DHnkdep http://SeeWhy/[facility]ULSAnkf Blood specimen (specimen) 10/01/2017 12:08 PM EDT 10/01/2017 12:14 PM EDT Narrative Resulting Agency Comment Spec In Lab Kemi Camp MAX CHEMISTRY ORDERAB LES [facility] [place] [address] * (ABNORMAL) Basic Metabolic Panel (non-fasting) (10/01/2017 3:41 AM EDT) Glucose 99 65 - 199 mg/dL [facility] Comment:Diabetes: >=200 mg/d L plus symptoms Blood Urea Nitrogen 13 10 - 20 mg/dL [facility] Creatinine 0.70(L) 0.80 - 1.50 mg/dL [facility] Sodium 130(L) 135 - 145 mmol/L [facility] Potassium 3.8 3.5 - 5.0 mmol/L [facility] Comment: Please note: ??Patients with WBC >100,000 may have falsely elevated Potassium levels. ??For accurate Potassium quantification in these patients send serum separator tube (gold top) for subsequent determinations. ??Contact the Clinical Chemistry Laboratory if there are any questions. Chloride 93(L) 98 - 107 mmol/L [facility] Carbon Dioxide 24 22 - 31 mmol/L [facility] Anion Gap 13 5 - 15 mmol/L [facility] Calcium 8.6 8.5 - 10.5 mg/dL [facility] Est Glomerular Filtration Rate >60 >=60 [facility] Comment: The reported eGFR should be multiplied by 1.2 for patients. The MDRD is not an appropriate measure of renal function for patients with body mass extremes or in patients with acute kidney failure. http://[email or web address] [email or web address] Blood specimen (specimen) 10/01/2017 3:41 AM EDT 10/01/2017 3:53 AM EDT Narrative Resulting Agency Comment Spec In Lab Kemi Camp APRN CHEMISTRY ORDERAB LES [facility] [place] [address] * (ABNORMAL) Basic Metabolic Panel (non-fasting) (09/30/2017 9:24 PM EDT) Glucose 106 65 - 199 mg/dL [facility] Comment:Diabetes: >=200 mg/d L plus symptoms Blood Urea Nitrogen 16 10 - 20 mg/dL [facility] Creatinine 0.80 0.80 - 1.50 mg/dL [facility] Sodium 131(L) 135 - 145 mmol/L [facility] Potassium 4.0 3.5 - 5.0 mmol/L [facility] Comment: Please note: ??Patients with WBC >100,000 may have falsely elevated Potassium levels. ??For accurate Potassium quantification in these patients send serum separator tube (gold top) for subsequent determinations. ??Contact the Clinical Chemistry Laboratory if there are any questions. Chloride 91(L) 98 - 107 mmol/L [facility] Carbon Dioxide 27 22 - 31 mmol/L [facility] Anion Gap 13 5 - 15 mmol/L [facility] Calcium 8.6 8.5 - 10.5 mg/dL [facility] Est Glomerular Filtration Rate >60 >=60 [facility] Comment: The reported eGFR should be multiplied by 1.2 for patients. The MDRD is not an appropriate measure of renal function for patients with body mass extremes or in patients with acute kidney failure. [email or web address] Blood specimen (specimen) 09/30/2017 9:24 PM EDT 09/30/2017 9:34 PM EDT Narrative Resulting Agency Comment Spec In Lab Kemi Camp APRN CHEMISTRY ORDERAB LES Performing Organization Address [facility]/ZIP Co de Phone Number [facility] [place] [address] * (ABNORMAL) Basic Metabolic Panel (non-fasting) (09/30/2017 12:42 PM EDT) Glucose 74 65 - 199 mg/dL [facility] Comment:Diabetes: >=200 mg/d L plus symptoms Blood Urea Nitrogen 18 10 - 20 mg/dL [facility] Creatinine 0.82 0.80 - 1.50 mg/dL [facility] Sodium 133(L) 135 - 145 mmol/L [facility] Potassium 3.6 3.5 - 5.0 mmol/L [facility] Comment: Please note: ??Patients with WBC >100,000 may have falsely elevated Potassium levels. ??For accurate Potassium quantification in these patients send serum separator tube (gold top) for subsequent determinations. ??Contact the Clinical Chemistry Laboratory if there are any questions. Chloride 94(L) 98 - 107 mmol/L [facility] Carbon Dioxide 27 22 - 31 mmol/L [facility] Anion Gap 12 5 - 15 mmol/L [facility] Calcium 8.6 8.5 - 10.5 mg/dL [facility] Est Glomerular Filtration Rate >60 >=60 [facility] Comment: The reported eGFR should be multiplied by 1.2 for patients. The MDRD is not an appropriate measure of renal function for patients with body mass extremes or in patients with acute kidney failure. [email or web address] Blood specimen (specimen) 09/30/2017 12:42 PM EDT 09/30/2017 12:53 PM EDT Narrative Resulting Agency Comment Spec In Lab Reba Linton MD CHEMISTRY ORDERA BLES Performing Organization Address [facility]/ZIP Co de Phone Number [facility] [place] [address] * (ABNORMAL) Basic Metabolic Panel (non-fasting) (09/30/2017 6:09 AM EDT) Glucose 85 65 - 199 mg/dL [facility] Comment:Diabetes: >=200 mg/d L plus symptoms Blood Urea Nitrogen 19 10 - 20 mg/dL [facility] Creatinine 0.78(L) 0.80 - 1.50 mg/dL [facility] Sodium 133(L) 135 - 145 mmol/L [facility] Potassium 3.9 3.5 - 5.0 mmol/L [facility] Comment: Please note: ??Patients with WBC >100,000 may have falsely elevated Potassium levels. ??For accurate Potassium quantification in these patients send serum separator tube (gold top) for subsequent determinations. ??Contact the Clinical Chemistry Laboratory if there are any questions. Chloride 94(L) 98 - 107 mmol/L [facility] Carbon Dioxide 27 22 - 31 mmol/L [facility] Anion Gap 12 5 - 15 mmol/L [facility] Calcium 8.8 8.5 - 10.5 mg/dL [facility] Est Glomerular Filtration Rate >60 >=60 [facility] Comment: The reported eGFR should be multiplied by 1.2 for patients. The MDRD is not an appropriate measure of renal function for patients with body mass extremes or in patients with acute kidney failure. [email or web address] Blood specimen (specimen) 09/30/2017 6:09 AM EDT 09/30/2017 6:13 AM EDT Narrative Resulting Agency Comment Spec In Lab Reba Linton MD CHEMISTRY ORDERA BLES [facility] [place] [address] * (ABNORMAL) Basic Metabolic Panel (non-fasting) (09/29/2017 6:36 PM EDT) Glucose 94 65 - 199 mg/dL [facility] Comment:Diabetes: >=200 mg/d L plus symptoms Blood Urea Nitrogen 22(H) 10 - 20 mg/dL [facility] Creatinine 0.73(L) 0.80 - 1.50 mg/dL [facility] Sodium 136 135 - 145 mmol/L [facility] Potassium 3.9 3.5 - 5.0 mmol/L [facility] Comment: Please note: ??Patients with WBC >100,000 may have falsely elevated Potassium levels. ??For accurate Potassium quantification in these patients send serum separator tube (gold top) for subsequent determinations. ??Contact the Clinical Chemistry Laboratory if there are any questions. Chloride 96(L) 98 - 107 mmol/L [facility] Carbon Dioxide 26 22 - 31 mmol/L [facility] Anion Gap 14 5 - 15 mmol/L [facility] Calcium 8.6 8.5 - 10.5 mg/dL [facility] Est Glomerular Filtration Rate >60 >=60 [facility] Comment: The reported eGFR should be multiplied by 1.2 for patients. The MDRD is not an appropriate measure of renal function for patients with body mass extremes or in patients with acute kidney failure. [email or web address] Blood specimen (specimen) 09/29/2017 6:36 PM EDT 09/29/2017 6:41 PM EDT Narrative Resulting Agency Comment Spec In Lab Kemi Camp APRN CHEMISTRY ORDERAB LES [facility] [place] [address] * (ABNORMAL) Basic Metabolic Panel (non-fasting) (09/29/2017 10:51 AM EDT) Glucose 82 65 - 199 mg/dL [facility] Comment:Diabetes: >=200 mg/d L plus symptoms Blood Urea Nitrogen 22(H) 10 - 20 mg/dL [facility] Creatinine 0.82 0.80 - 1.50 mg/dL [facility] Sodium 140 135 - 145 mmol/L [facility] Potassium 3.7 3.5 - 5.0 mmol/L [facility] Comment: Please note: ??Patients with WBC >100,000 may have falsely elevated Potassium levels. ??For accurate Potassium quantification in these patients send serum separator tube (gold top) for subsequent determinations. ??Contact the Clinical Chemistry Laboratory if there are any questions. Chloride 99 98 - 107 mmol/L [facility] Carbon Dioxide 28 22 - 31 mmol/L [facility] Anion Gap 13 5 - 15 mmol/L [facility] Calcium 8.8 8.5 - 10.5 mg/dL [facility] Est Glomerular Filtration Rate >60 >=60 [facility] Comment: The reported eGFR should be multiplied by 1.2 for patients. The MDRD is not an appropriate measure of renal function for patients with body mass extremes or in patients with acute kidney failure. [email or web address] Blood specimen (specimen) 09/29/2017 10:51 AM EDT 09/29/2017 11:08 AM EDT Narrative Resulting Agency Comment Spec In Lab Kemi Camp APRN CHEMISTRY ORDERAB LES [facility] [place] [address] * (ABNORMAL) Basic Metabolic Panel (non-fasting) (09/29/2017 2:17 AM EDT) Glucose 84 65 - 199 mg/dL [facility] Comment:Diabetes: >=200 mg/d L plus symptoms Blood Urea Nitrogen 23(H) 10 - 20 mg/dL [facility] Creatinine 0.98 0.80 - 1.50 mg/dL [facility] Sodium 140 135 - 145 mmol/L [facility] Potassium 3.5 3.5 - 5.0 mmol/L [facility] Comment: Please note: ??Patients with WBC >100,000 may have falsely elevated Potassium levels. ??For accurate Potassium quantification in these patients send serum separator tube (gold top) for subsequent determinations. ??Contact the Clinical Chemistry Laboratory if there are any questions. Chloride 99 98 - 107 mmol/L [facility] Carbon Dioxide 29 22 - 31 mmol/L [facility] Anion Gap 12 5 - 15 mmol/L [facility] Calcium 8.9 8.5 - 10.5 mg/dL [facility] Est Glomerular Filtration Rate >60 >=60 [facility] Comment: The reported eGFR should be multiplied by 1.2 for patients. The MDRD is not an appropriate measure of renal function for patients with body mass extremes or in patients with acute kidney failure. [email or web address] [email or web address] Blood specimen (specimen) 09/29/2017 2:17 AM EDT 09/29/2017 2:21 AM EDT Narrative Resulting Agency Comment Spec In Lab Kemi Camp APRN CHEMISTRY ORDERAB LES [facility] [place] [address] * (ABNORMAL) Basic Metabolic Panel (non-fasting) (09/28/2017 2:56 PM EDT) Glucose 92 65 - 199 mg/dL [facility] Comment:Diabetes: >=200 mg/d L plus symptoms Blood Urea Nitrogen 23(H) 10 - 20 mg/dL [facility] Creatinine 0.88 0.80 - 1.50 mg/dL [facility] Sodium 146(H) 135 - 145 mmol/L [facility] Potassium 4.0 3.5 - 5.0 mmol/L [facility] Comment: Please note: ??Patients with WBC >100,000 may have falsely elevated Potassium levels. ??For accurate Potassium quantification in these patients send serum separator tube (gold top) for subsequent determinations. ??Contact the Clinical Chemistry Laboratory if there are any questions. Chloride 103 98 - 107 mmol/L [facility] Carbon Dioxide 27 22 - 31 mmol/L [facility] Anion Gap 16(H) 5 - 15 mmol/L [facility] Calcium 9.3 8.5 - 10.5 mg/dL [facility] Est Glomerular Filtration Rate >60 >=60 [facility] Comment: The reported eGFR should be multiplied by 1.2 for patients. The MDRD is not an appropriate measure of renal function for patients with body mass extremes or in patients with acute kidney failure. http://[email or web address] [email or web address] Blood specimen (specimen) 09/28/2017 2:56 PM EDT 09/28/2017 3:08 PM EDT Narrative Resulting Agency Comment Spec In Lab Reba Linton MD CHEMISTRY [facility] [place] [address] * (ABNORMAL) Basic Metabolic Panel (non-fasting) (09/28/2017 12:13 PM EDT) Glucose 78 65 - 199 mg/dL [facility] Comment:Diabetes: >=200 mg/d L plus symptoms Blood Urea Nitrogen 22(H) 10 - 20 mg/dL [facility] Creatinine 0.86 0.80 - 1.50 mg/dL [facility] Sodium 148(H) 135 - 145 mmol/L [facility] Potassium 3.9 3.5 - 5.0 mmol/L [facility] Comment: Please note: ??Patients with WBC >100,000 may have falsely elevated Potassium levels. ??For accurate Potassium quantification in these patients send serum separator tube (gold top) for subsequent determinations. ??Contact the Clinical Chemistry Laboratory if there are any questions. Chloride 106 98 - 107 mmol/L [facility] Carbon Dioxide 27 22 - 31 mmol/L [facility] Anion Gap 15 5 - 15 mmol/L [facility] Calcium 9.3 8.5 - 10.5 mg/dL [facility] Est Glomerular Filtration Rate >60 >=60 [facility] Comment: The reported eGFR should be multiplied by 1.2 for patients. The MDRD is not an appropriate measure of renal function for patients with body mass extremes or in patients with acute kidney failure. http://SeeWhy/DHnkdep http://SeeWhy/DHMCnkf Blood specimen (specimen) 09/28/2017 12:13 PM EDT 09/28/2017 12:18 PM EDT Narrative Resulting Agency Comment Spec In Lab Reba Linton MD CHEMISTRY ORDERA BLES [facility] [place] [address] * (ABNORMAL) Basic Metabolic Panel (non-fasting) (09/28/2017 6:57 AM EDT) Glucose 86 65 - 199 mg/dL [facility] Comment:Diabetes: >=200 mg/d L plus symptoms Blood Urea Nitrogen 21(H) 10 - 20 mg/dL [facility] Creatinine 0.89 0.80 - 1.50 mg/dL [facility] Sodium 148(H) 135 - 145 mmol/L [facility] Potassium 4.0 3.5 - 5.0 mmol/L [facility] Comment: Please note: ??Patients with WBC >100,000 may have falsely elevated Potassium levels. ??For accurate Potassium quantification in these patients send serum separator tube (gold top) for subsequent determinations. ??Contact the Clinical Chemistry Laboratory if there are any questions. Chloride 107 98 - 107 mmol/L [facility] Carbon Dioxide 26 22 - 31 mmol/L [facility] Anion Gap 15 5 - 15 mmol/L [facility] Calcium 9.5 8.5 - 10.5 mg/dL [facility] Est Glomerular Filtration Rate >60 >=60 [facility] Comment: The reported eGFR should be multiplied by 1.2 for patients. The MDRD is not an appropriate measure of renal function for patients with body mass extremes or in patients with acute kidney failure. http://SeeWhy/DHnkdep http://SeeWhy/DHMCnkf Blood specimen (specimen) 09/28/2017 6:57 AM EDT 09/28/2017 7:02 AM EDT Narrative Resulting Agency Comment Spec In Lab Reba Linton MD CHEMISTRY ORDERA BLES [facility] [place] [address] * (ABNORMAL) Basic Metabolic Panel (non-fasting) (09/27/2017 9:43 AM EDT) Glucose 108 65 - 199 mg/dL [facility] Comment:Diabetes: >=200 mg/d L plus symptoms Blood Urea Nitrogen 17 10 - 20 mg/dL [facility] Creatinine 1.00 0.80 - 1.50 mg/dL [facility] Sodium 147(H) 135 - 145 mmol/L [facility] Comment:result rechecked-MM Potassium 3.5 3.5 - 5.0 mmol/L [facility] Comment: Please note: ??Patients with WBC >100,000 may have falsely elevated Potassium levels. ??For accurate Potassium quantification in these patients send serum separator tube (gold top) for subsequent determinations. ??Contact the Clinical Chemistry Laboratory if there are any questions. Chloride 106 98 - 107 mmol/L [facility] Carbon Dioxide 22 22 - 31 mmol/L [facility] Anion Gap 19(H) 5 - 15 mmol/L [facility] Calcium 9.4 8.5 - 10.5 mg/dL [facility] Est Glomerular Filtration Rate >60 >=60 [facility] Comment: The reported eGFR should be multiplied by 1.2 for patients. The MDRD is not an appropriate measure of renal function for patients with body mass extremes or in patients with acute kidney failure. http://SeeWhy/DHnkdep http://SeeWhy/DHMCnkf Blood specimen (specimen) 09/27/2017 9:43 AM EDT 09/27/2017 9:50 AM EDT Narrative Resulting Agency Comment Spec In Lab Kya Enriquez MD CHEMISTRY ORDERABL ES [facility] [place] [address] * (ABNORMAL) Basic Metabolic Panel (non-fasting) (09/25/2017 12:22 PM EDT) Glucose 81 65 - 199 mg/dL [facility] Comment:Diabetes: >=200 mg/d L plus symptoms Blood Urea Nitrogen 16 10 - 20 mg/dL [facility] Creatinine 0.68(L) 0.80 - 1.50 mg/dL [facility] Sodium 137 135 - 145 mmol/L [facility] Potassium 4.0 3.5 - 5.0 mmol/L [facility] Comment: Please note: ??Patients with WBC >100,000 may have falsely elevated Potassium levels. ??For accurate Potassium quantification in these patients send serum separator tube (gold top) for subsequent determinations. ??Contact the Clinical Chemistry Laboratory if there are any questions. Chloride 98 98 - 107 mmol/L [facility] Carbon Dioxide 24 22 - 31 mmol/L [facility] Anion Gap 15 5 - 15 mmol/L [facility] Calcium 9.1 8.5 - 10.5 mg/dL [facility] Est Glomerular Filtration Rate >60 >=60 [facility] Comment: The reported eGFR should be multiplied by 1.2 for patients. The MDRD is not an appropriate measure of renal function for patients with body mass extremes or in patients with acute kidney failure. http://SeeWhy/DHnkdep http://SeeWhy/DHMCnkf Blood specimen (specimen) 09/25/2017 12:22 PM EDT 09/25/2017 12:30 PM EDT Narrative Resulting Agency Comment Spec In Lab Kya Enriquez MD CHEMISTRY ORDERABL ES [facility] [place] [address] * (ABNORMAL) Basic Metabolic Panel (non-fasting) (09/24/2017 11:40 AM EDT) Glucose 96 65 - 199 mg/dL [facility] Comment:Diabetes: >=200 mg/d L plus symptoms Blood Urea Nitrogen 13 10 - 20 mg/dL [facility] Creatinine 0.78(L) 0.80 - 1.50 mg/dL [facility] Sodium 137 135 - 145 mmol/L [facility] Potassium 4.0 3.5 - 5.0 mmol/L [facility] Comment: Please note: ??Patients with WBC >100,000 may have falsely elevated Potassium levels. ??For accurate Potassium quantification in these patients send serum separator tube (gold top) for subsequent determinations. ??Contact the Clinical Chemistry Laboratory if there are any questions. Chloride 100 98 - 107 mmol/L [facility] Carbon Dioxide 26 22 - 31 mmol/L [facility] Anion Gap 11 5 - 15 mmol/L [facility] Calcium 8.9 8.5 - 10.5 mg/dL [facility] Est Glomerular Filtration Rate >60 >=60 [facility] Comment: The reported eGFR should be multiplied by 1.2 for patients. The MDRD is not an appropriate measure of renal function for patients with body mass extremes or in patients with acute kidney failure. http://SeeWhy/DHnkdep http://SeeWhy/DHMCnkf Blood specimen (specimen) 09/24/2017 11:40 AM EDT 09/24/2017 11:47 AM EDT Narrative Resulting Agency Comment Spec In Lab Kya Enriquez MD CHEMISTRY ORDERABL ES [facility] [place] [address] * XR Pelvis (Generic) (09/23/2017 5:26 PM [...] EDT) Glucose 87 65 - 199 mg/dL [facility] Comment:Diabetes: >=200 mg/d L plus symptoms Blood Urea Nitrogen 20 10 - 20 mg/dL [facility] Creatinine 0.86 0.80 - 1.50 mg/dL [facility] Sodium 139 135 - 145 mmol/L [facility] Potassium 4.1 3.5 - 5.0 mmol/L [facility] Comment: Please note: ??Patients with WBC >100,000 may have falsely elevated Potassium levels. ??For accurate Potassium quantification in these patients send serum separator tube (gold top) for subsequent determinations. ??Contact the Clinical Chemistry Laboratory if there are any questions. Chloride 100 98 - 107 mmol/L [facility] Carbon Dioxide 26 22 - 31 mmol/L [facility] Anion Gap 13 5 - 15 mmol/L [facility] Calcium 8.9 8.5 - 10.5 mg/dL [facility] Est Glomerular Filtration Rate >60 >=60 [facility] Comment: The reported eGFR should be multiplied by 1.2 for patients. The MDRD is not an appropriate measure of renal function for patients with body mass extremes or in patients with acute kidney failure. [email or web address]/DHnkdep [email or web address] Blood specimen (specimen) 09/22/2017 3:32 AM EDT 09/22/2017 4:16 AM EDT Narrative Resulting Agency Comment Spec In Lab Kya Enriquez MD CHEMISTRY ORDERABL ES [facility] [place] [address] * Basic Metabolic Panel (non-fasting) (09/21/2017 10:25 AM EDT) Glucose 92 65 - 199 mg/dL [facility] Comment:Diabetes: >=200 mg/d L plus symptoms Blood Urea Nitrogen 19 10 - 20 mg/dL [facility] Creatinine 0.87 0.80 - 1.50 mg/dL [facility] Sodium 141 135 - 145 mmol/L [facility] Potassium 3.8 3.5 - 5.0 mmol/L [facility] Comment: Please note: ??Patients with WBC >100,000 may have falsely elevated Potassium levels. ??For accurate Potassium quantification in these patients send serum separator tube (gold top) for subsequent determinations. ??Contact the Clinical Chemistry Laboratory if there are any questions. Chloride 102 98 - 107 mmol/L [facility] Carbon Dioxide 28 22 - 31 mmol/L [facility] Anion Gap 11 5 - 15 mmol/L [facility] Calcium 8.8 8.5 - 10.5 mg/dL [facility] Est Glomerular Filtration Rate >60 >=60 [facility] Comment: The reported eGFR should be multiplied by 1.2 for patients. The MDRD is not an appropriate measure of renal function for patients with body mass extremes or in patients with acute kidney failure. http://SeeWhy/DHnkdep http://SeeWhy/DHMCnkf Blood specimen (specimen) 09/21/2017 10:25 AM EDT 09/21/2017 10:31 AM EDT Narrative Resulting Agency Comment Spec In Lab Kya Enriquez MD CHEMISTRY ORDERABL ES [facility] [place] [address] * (ABNORMAL) Basic Metabolic Panel (non-fasting) (09/20/2017 5:51 AM EDT) Glucose 93 65 - 199 mg/dL [facility] Comment:Diabetes: >=200 mg/d L plus symptoms Blood Urea Nitrogen 22(H) 10 - 20 mg/dL [facility] Creatinine 0.90 0.80 - 1.50 mg/dL [facility] Sodium 144 135 - 145 mmol/L [facility] Potassium 3.6 3.5 - 5.0 mmol/L [facility] Comment: Please note: ??Patients with WBC >100,000 may have falsely elevated Potassium levels. ??For accurate Potassium quantification in these patients send serum separator tube (gold top) for subsequent determinations. ??Contact the Clinical Chemistry Laboratory if there are any questions. Chloride 104 98 - 107 mmol/L [facility] Carbon Dioxide 26 22 - 31 mmol/L [facility] Anion Gap 14 5 - 15 mmol/L [facility] Calcium 8.9 8.5 - 10.5 mg/dL [facility] Est Glomerular Filtration Rate >60 >=60 [facility] Comment: The reported eGFR should be multiplied by 1.2 for patients. The MDRD is not an appropriate measure of renal function for patients with body mass extremes or in patients with acute kidney failure. [email or web address]/DHnkdep http://SeeWhy/[email or web address] Blood specimen (specimen) 09/20/2017 5:51 AM EDT 09/20/2017 6:57 AM EDT Narrative Resulting Agency Comment Spec In Lab Reba Linton MD CHEMISTRY ORDERA [facility] [place] [address] * XR Pelvis Judet or In Out [...] [facility] RBC Morphology Abnormal [facility] Hypochromia Slight [facility] Ovalocytes 1-5 /HPF [facility] Tear Cell 1-5 /HPF [facility] Blood specimen (specimen) 09/19/2017 3:21 AM EDT 09/19/2017 4:23 AM EDT Narrative Resulting Agency Comment Spec In Lab Juliet Medeiros APRN HEMATOLOGY ORDERABLE S [facility] [place] [address] * (ABNORMAL) Differential, Automated (09/19/2017 3:21 AM EDT) Neutrophil % 50.0 % [facility] Neutrophil Absolute 3.69 1.70 - 6.10 x10(3)/[facility] Lymph % 28.8 % [facility] Lymphocytes Abs 2.1 0.9 - 3.2 x10(3)/[facility] Monocyte % 11.0 % [facility] Monocyte Abs 0.8 0.3 - 0.9 x10(3)/[facility] Eos % 7.5 % [facility] Eosinophils Abs 0.6(H) 0.0 - 0.4 x10(3)/[facility] Basophil % 0.9 % [facility] Baso Absolute 0.1 0.0 - 0.1 x10(3)/[facility] Immature Gran % 1.80 % [facility] Comment: Immature granulocytes(IG's)percentage and absolute count will include metamyelocytes, myelocytes, and promyelocytes. Blood smears from CBCs yielding IG's will be scanned manually for concordance. If this scan disagrees with the automated IG or if promyelocytes are noted, a manual differential will be performed. Immature Gran Absolute 0.13(H) 0.00 - 0.04 x10(3)/[facility] Blood specimen (specimen) 09/19/2017 3:21 AM EDT 09/19/2017 4:23 AM EDT Narrative Resulting Agency Comment Spec In Lab Juliet Medeiros APRN HEMATOLOGY ORDERABLE S [facility] [place] [address] * (ABNORMAL) Hemogram (09/19/2017 3:21 AM EDT) Pathologist [facility] White Blood Cell 7.4 4.0 - 9.5 x10(3)/mc L [facility] Red Blood Cell 3.52(L) 4.58 - 5.54 x10(6)/ L [facility] Hemoglobin 9.1(L) 13.7 - 16.5 gm/dL [facility] Hematocrit 31.4(L) 40.5 - 48.5 % [facility] Mean Cell Volume 89.2 82.9 - 93.1 fL [facility] Mean Cell Hemoglobin 25.9(L) 27.5 - 32.1 pg [facility] Mean Cell Hemoglobin Concentration 29.0(L) 32.0 - 35.7 gm/dL [facility] Platelet 648(H) 145 - 357 x10(3)/[facility] RDW Standard Deviation 53.9(H) 36.0 - 45.0 [facility] RDW coefficient of variation 17.3(H) 11.4 - 13.8 % [facility] Mean Platelet Volume 8.9 7.6 - 12.9 [facility] NRBC% auto 0.5 % [facility] NRBC Absolute 0.040(H) 0.000 - 0.000 x10(3)/[facility] Blood specimen (specimen) 09/19/2017 3:21 AM EDT 09/19/2017 4:23 AM EDT Narrative Resulting Agency Comment Spec In Lab Juliet Medeiros APRN HEMATOLOGY ORDERABLE S [facility] [place] [address] * (ABNORMAL) Basic Metabolic Panel (non-fasting) (09/19/2017 3:21 AM EDT) Glucose 91 65 - 199 mg/dL [facility] Comment:Diabetes: >=200 mg/d L plus symptoms Blood Urea Nitrogen 16 10 - 20 mg/dL [facility] Creatinine 1.02 0.80 - 1.50 mg/dL [facility] Sodium 149(H) 135 - 145 mmol/L [facility] Potassium 4.0 3.5 - 5.0 mmol/L [facility] Comment: Please note: ??Patients with WBC >100,000 may have falsely elevated Potassium levels. ??For accurate Potassium quantification in these patients send serum separator tube (gold top) for subsequent determinations. ??Contact the Clinical Chemistry Laboratory if there are any questions. Chloride 108(H) 98 - 107 mmol/L [facility] Carbon Dioxide 26 22 - 31 mmol/L [facility] Anion Gap 15 5 - 15 mmol/L [facility] Calcium 9.1 8.5 - 10.5 mg/dL [facility] Est Glomerular Filtration Rate >60 >=60 [facility] Comment: The reported eGFR should be multiplied by 1.2 for patients. The MDRD is not an appropriate measure of renal function for patients with body mass extremes or in patients with acute kidney failure. [email or web address]/DHnkdep [email or web address]://SeeWhy/[email or web address] Blood specimen (specimen) 09/19/2017 3:21 AM EDT 09/19/2017 4:23 AM EDT Narrative Resulting Agency Comment Spec In Lab Juliet Medeiros APRN CHEMISTRY ORDERABLES Performing Organization Address City/[facility]/ZIP Co de Phone Number [facility] [place] [address] * Sodium (09/18/2017 5:46 AM EDT) Sodium 144 135 - 145 mmol/L [facility] Comment:Rechecked-KS Blood specimen (specimen) 09/18/2017 5:46 AM EDT 09/18/2017 5:59 AM EDT Narrative Resulting Agency Comment Spec In Lab Reba Linton MD CHEMISTRY ORDERA BLES [facility] [place] [address] * (ABNORMAL) Hemogram (09/18/2017 5:46 AM EDT) White Blood Cell 6.6 4.0 - 9.5 x10(3)/mc L [facility] Red Blood Cell 3.05(L) 4.58 - 5.54 x10(6)/mc L [facility] Hemoglobin 8.2(L) 13.7 - 16.5 gm/dL [facility] Hematocrit 26.2(L) 40.5 - 48.5 % [facility] Mean Cell Volume 85.9 82.9 - 93.1 fL [facility] Mean Cell Hemoglobin 26.9(L) 27.5 - 32.1 pg [facility] Mean Cell Hemoglobin Concentration 31.3(L) 32.0 - 35.7 gm/dL [facility] Platelet 580(H) 145 - 357 x10(3)/mc L [facility] RDW Standard Deviation 50.4(H) 36.0 - 45.0 fL [facility] RDW coefficient of variation 16.7(H) 11.4 - 13.8 % [facility] Mean Platelet Volume 8.8 7.6 - 12.9 fL [facility] NRBC% auto 0.5 % [facility] NRBC Absolute 0.030(H) 0.000 - 0.000 x10(3)/mc L [facility] Blood specimen (specimen) 09/18/2017 5:46 AM EDT 09/18/2017 5:59 AM EDT Narrative Resulting Agency Comment Spec In Lab Reba Linton MD HEMATOLOGY ORDER LYNDSEY [facility] [place] [address] * Sodium (09/17/2017 12:49 PM EDT) Sodium 136 135 - 145 mmol/L [facility] Blood specimen (specimen) 09/17/2017 12:49 PM EDT 09/17/2017 12:54 PM EDT Narrative Resulting Agency Comment Spec In Lab Reba Linton MD CHEMISTRY ORDERA BLES [facility] [place] [address] * (ABNORMAL) Hemogram (09/17/2017 6:28 AM EDT) White Blood Cell 6.8 4.0 - 9.5 x10(3)/mc L [facility] Red Blood Cell 3.07(L) 4.58 - 5.54 x10(6)/ L [facility] Hemoglobin 8.1(L) 13.7 - 16.5 gm/dL [facility] Hematocrit 26.0(L) 40.5 - 48.5 % [facility] Mean Cell Volume 84.7 82.9 - 93.1 fL [facility] Mean Cell Hemoglobin 26.4(L) 27.5 - 32.1 pg [facility] Mean Cell Hemoglobin Concentration 31.2(L) 32.0 - 35.7 gm/dL [facility] Platelet 497(H) 145 - 357 x10(3)/mc L [facility] RDW Standard Deviation 46.9(H) 36.0 - 45.0 [facility] RDW coefficient of variation 15.7(H) 11.4 - 13.8 % [facility] Mean Platelet Volume 8.8 7.6 - 12.9 fL [facility] NRBC% auto 0.3 % [facility] NRBC Absolute 0.020(H) 0.000 - 0.000 x10(3)/mc L [facility] Blood specimen (specimen) 09/17/2017 6:28 AM EDT 09/17/2017 6:43 AM EDT Narrative Resulting Agency Comment Spec In Lab Reba Linton MD HEMATOLOGY ORDER LYNDSEY [facility] [place] [address] * ABORH Recheck Status (09/16/2017 9:27 AM EDT) ABORH Type Recheck Completed [facility] Blood specimen (specimen) 09/16/2017 9:27 AM EDT 09/16/2017 9:32 AM EDT Narrative Resulting Agency Comment Spec In Lab Delgado Jeffrey MD BLOOD BANK LAB ORDE RIDDHI Performing Organization Address [facility] Co de Phone Number [facility] [place] [address] * Antibody screen (09/16/2017 9:27 AM EDT) Ab Screen Interp Negative [facility] Expires at [id number] on: 09/19/2017 [facility] Blood specimen (specimen) 09/16/2017 9:27 AM EDT 09/16/2017 9:32 AM EDT Narrative Resulting Agency Comment Spec In Lab Delgado Jeffrey MD BLOOD BANK LAB ORDE RIDDHI Performing Organization Address City/[facility]/ZIP Co de Phone Number [facility] [place] [address] * ABO/Rh Typing (09/16/2017 9:27 AM EDT) ABORH Type O Pos [facility] Blood specimen (specimen) 09/16/2017 9:27 AM EDT 09/16/2017 9:32 AM EDT Narrative Resulting Agency Comment Spec In Lab Delgado Jeffrey MD BLOOD BANK LAB ORDE RIDDHI Performing Organization Address City/[facility]/ZIP Co de Phone Number [facility] [place] [address] * Prepare RBC (09/16/2017 8:35 AM EDT) Pathologist [facility] Dispensed? Yes [facility] Blood specimen (specimen) 09/16/2017 8:35 AM EDT 09/16/2017 8:34 AM EDT Narrative Resulting Agency Comment Spec In Lab Reba Linton MD BLOOD BANK PRODU CT ORDERABLES Performing Organization Address City/[facility]/ZIP Co de Phone Number [facility] [place] [address] * Sodium (09/16/2017 5:07 AM EDT) [facility] Sodium 141 135 - 145 mmol/L [facility] Blood specimen (specimen) 09/16/2017 5:07 AM EDT 09/16/2017 5:14 AM EDT Narrative Resulting Agency Comment Spec In Lab Reba Linton MD CHEMISTRY ORDERA BLES Performing Organization Address City/[facility]/ZIP Co de Phone Number [facility] [place] [address] * (ABNORMAL) Differential, Automated (09/16/2017 5:07 AM EDT) [facility] Neutrophil % 54.3 % [facility] Neutrophil Absolute 4.04 1.70 - 6.10 x10(3)/mc L [facility] Lymph % 24.3 % [facility] Lymphocytes Abs 1.8 0.9 - 3.2 x10(3)/mc L [facility] Monocyte % 10.0 % [facility] Monocyte Abs 0.7 0.3 - 0.9 x10(3)/mc L [facility] Eos % 8.8 % [facility] Eosinophils Abs 0.6(H) 0.0 - 0.4 x10(3)/[facility] Basophil % 0.4 % [facility] Baso Absolute 0.0 0.0 - 0.1 x10(3)/[facility] Immature Gran % 2.20 % [facility] Comment: Immature granulocytes(IG's)percentage and absolute count will include metamyelocytes, myelocytes, and promyelocytes. Blood smears from CBCs yielding IG's will be scanned manually for concordance. If this scan disagrees with the automated IG or if promyelocytes are noted, a manual differential will be performed. Immature Gran Absolute 0.16(H) 0.00 - 0.04 x10(3)/[facility] Blood specimen (specimen) 09/16/2017 5:07 AM EDT 09/16/2017 5:14 AM EDT Narrative Resulting Agency Comment Spec In Lab Delgado Jeffrey MD HEMATOLOGY ORDERABL ES [facility] [place] [id number] * (ABNORMAL) Hemogram (09/16/2017 5:07 AM EDT) White Blood Cell 7.4 4.0 - 9.5 x10(3)/[facility] Red Blood Cell 2.58(L) 4.58 - 5.54 x10(6)/[facility] Hemoglobin 6.8(L) 13.7 - 16.5 gm/dL [facility] Hematocrit 21.8(L) 40.5 - 48.5 % [facility] Mean Cell Volume 84.5 82.9 - 93.1 fL [facility] Mean Cell Hemoglobin 26.4(L) 27.5 - 32.1 pg [facility] Mean Cell Hemoglobin Concentration 31.2(L) 32.0 - 35.7 gm/dL [facility] Platelet 366(H) 145 - 357 x10(3)/mc L [facility] RDW Standard Deviation 47.4(H) 36.0 - 45.0 fL [facility] RDW coefficient of variation 15.7(H) 11.4 - 13.8 % [facility] Mean Platelet Volume 8.7 7.6 - 12.9 fL [facility] NRBC% auto 0.3 % [facility] NRBC Absolute 0.020(H) 0.000 - 0.000 x10(3)/mc L [facility] Blood specimen (specimen) 09/16/2017 5:07 AM EDT 09/16/2017 5:14 AM EDT Narrative Resulting Agency Comment Spec In Lab Delgado Jeffrey MD HEMATOLOGY ORDERABL ES Performing Organization Address [facility] [facility] Co de Phone Number [facility] [place] [address] * SCAN DOC: LAB (09/16/2017 12:00 AM EDT) Narrative 09/16/2017 12:00 AM EDT Ordered by an unspecified provider. Scanning Provider MEDIA MGR SCAN EXT O RDR/RSLT * Sodium (09/15/2017 1:48 PM EDT) Sodium 137 135 - 145 mmol/L [facility] Blood specimen (specimen) 09/15/2017 1:48 PM EDT 09/15/2017 1:57 PM EDT Narrative Resulting Agency Comment Spec In Lab Reba Linton MD CHEMISTRY ORDERA BLES Performing Organization Address [facility]/ZIP Co de Phone Number [facility] [place] [address] * (ABNORMAL) Differential, Automated (09/15/2017 1:48 PM EDT) Neutrophil % 65.7 % [facility] Neutrophil Absolute 5.35 1.70 - 6.10 x10(3)/mc L [facility] Lymph % 14.9 % [facility] Lymphocytes Abs 1.2 0.9 - 3.2 x10(3)/[facility] Monocyte % 7.0 % [facility] Monocyte Abs 0.6 0.3 - 0.9 x10(3)/[facility] LABORATORY Eos % 8.0 % [facility] Eosinophils Abs 0.6(H) 0.0 - 0.4 x10(3)/[facility] LABORATORY Basophil % 0.5 % [facility] Baso Absolute 0.0 0.0 - 0.1 x10(3)/[facility] LABORATORY Immature Gran % 3.90 % [facility] Comment: Immature granulocytes(IG's)percentage and absolute count will include metamyelocytes, myelocytes, and promyelocytes. Blood smears from CBCs yielding IG's will be scanned manually for concordance. If this scan disagrees with the automated IG or if promyelocytes are noted, a manual differential will be performed. Immature Gran Absolute 0.32(H) 0.00 - 0.04 x10(3)/[facility] LABORATORY Blood specimen (specimen) 09/15/2017 1:48 PM EDT 09/15/2017 1:57 PM EDT Narrative Resulting Agency Comment Spec In Lab Delgado Jeffrey MD HEMATOLOGY ORDERABL ES [facility] [place] [address] * (ABNORMAL) Hemogram (09/15/2017 1:48 PM EDT) White Blood Cell 8.1 4.0 - 9.5 x10(3)/[facility] LABORATORY Red Blood Cell 2.82(L) 4.58 - 5.54 x10(6)/[facility] LABORATORY Hemoglobin 7.4(L) 13.7 - 16.5 gm/dL [facility] Hematocrit 24.2(L) 40.5 - 48.5 % [facility] Mean Cell Volume 85.8 82.9 - 93.1 fL [facility] Mean Cell Hemoglobin 26.2(L) 27.5 - 32.1 pg [facility] Mean Cell Hemoglobin Concentration 30.6(L) 32.0 - 35.7 gm/dL [facility] Platelet 399(H) 145 - 357 x10(3)/mc L [facility] RDW Standard Deviation 48.6(H) 36.0 - 45.0 fL [facility] RDW coefficient of variation 15.9(H) 11.4 - 13.8 % [facility] Mean Platelet Volume 8.6 7.6 - 12.9 fL [facility] NRBC% auto 0.2 % [facility] NRBC Absolute 0.020(H) 0.000 - 0.000 x10(3)/mc L [facility] Blood specimen (specimen) 09/15/2017 1:48 PM EDT 09/15/2017 1:57 PM EDT Narrative Resulting Agency Comment Spec In Lab Delgado Jeffrey MD HEMATOLOGY ORDERABL ES Performing Organization Address [facility]/ZIP Co de Phone Number [facility] [place] [address] * Sodium (09/15/2017 6:07 AM EDT) Sodium 141 135 - 145 mmol/L [facility] Blood specimen (specimen) 09/15/2017 6:07 AM EDT 09/15/2017 6:20 AM EDT Narrative Resulting Agency Comment Spec In Lab Reab Linton MD CHEMISTRY ORDERA BLES Performing Organization Address City/[facility]/ZIP Co de Phone Number [facility] [place] [address] * Urinalysis with reflex Culture (09/14/2017 10:32 PM EDT) Glucose, Urine Dipstick Negative Negative mg/dL [facility] Protein, Urine Dipstick Negative Negative mg/dL [facility] Bilirubin, Urine Dipstick Negative Negative mg/dL [facility] Comment: Clinical correlation required for positive Urine Bilirubin results as false positive may occur with some drugs and drug related products. If a false positive is suspected a serum total bilirubin should be considered if clinically indicated. Urobilinogen, Urine Dipstick Normal Normal mg/dL [facility] pH, Urn (dipstick) 5.0 5.0 - 8.0 [facility] Blood, Urine Dipstick Negative Negative mg/dL [facility] Ketone, Urine Dipstick Negative Negative mg/dL [facility] Nitrite, Urine Dipstick Negative Negative [facility] Leukocytes, Urine Dipstick Negative Negative mcL [facility] Appearance, Urine Dipstick Clear Clear [facility] Specific [place] Urine Automated 1.019 1.002 - 1.030 [facility] Color, Urine Dipstick Yellow Yellow [facility] Reflex to Culture No [facility] Urine specimen obtained via straight catheter (specimen) 09/14/2017 10:32 PM EDT 09/14/2017 11:25 PM EDT Narrative Resulting Agency Comment Spec In Lab Shannan Davalos APRN URINE ORDERABLES [facility] [place] [address] * Sodium (09/14/2017 10:16 PM EDT) Sodium 142 135 - 145 mmol/L [facility] Blood specimen (specimen) 09/14/2017 10:16 PM EDT 09/14/2017 10:22 PM EDT Narrative Resulting Agency Comment Spec In Lab Reba Linton MD CHEMISTRY ORDERA BLES Performing Organization Address City/[facility]/ZIP Co de Phone Number [facility] [place] [address] * XR Chest PA or AP 1 [...] Blood Culture No growth at 5 days. [facility] Blood specimen (specimen) 09/14/2017 8:51 PM EDT 09/14/2017 9:30 PM EDT Comment:R [email or web address].BR Narrative Resulting Agency Comment Spec In Lab Shannan Davalos APRN MICROBIOLOGY - BLOOD ORDERABLES Performing Organization Address City/[facility]/ZIP Co de Phone Number [facility] [place] [address] * Blood culture (09/14/2017 8:51 PM EDT) Blood Culture No growth at 5 days. [facility] Blood specimen (specimen) 09/14/2017 8:51 PM EDT 09/14/2017 9:30 PM EDT Comment:L AC Narrative Resulting Agency Comment Spec In Lab Shannan Davalos APRN MICROBIOLOGY - BLOOD ORDERABLES Performing Organization Address City/[facility]/ZIP Co de Phone Number [facility] [place] [address] * T4, free (09/14/2017 2:09 PM EDT) Free T4 1.01 0.93 - 1.70 ng/dL [facility] Blood specimen (specimen) Venous Draw / Unknown 09/14/2017 2:09 PM EDT 09/14/2017 4:05 PM EDT Narrative Resulting Agency Comment Spec In Lab Yadi Mccauley MD CHEMISTRY ORDERAB LES Performing Organization Address [facility]/ZIP Co de Phone Number [facility] [place] [address] * Sodium (09/14/2017 2:09 PM EDT) Sodium 145 135 - 145 mmol/L [facility] Blood specimen (specimen) 09/14/2017 2:09 PM EDT 09/14/2017 2:14 PM EDT Narrative Resulting Agency Comment Spec In Lab Reba Linton MD CHEMISTRY ORDERA BLES Performing Organization Address [facility]/ZIP Co de Phone Number [facility] [place] [address] * Magnesium (09/14/2017 2:09 PM EDT) Magnesium 0.85 0.69 - 1.07 mmol/L [facility] Blood specimen (specimen) 09/14/2017 2:09 PM EDT 09/14/2017 2:14 PM EDT Narrative Resulting Agency Comment Spec In Lab Reba Linton MD CHEMISTRY ORDERSunni BAKER [facility] [place] [address] * Basic Metabolic Panel (non-fasting) (09/14/2017 2:09 PM EDT) Glucose 73 65 - 199 mg/dL [facility] Comment:Diabetes: >=200 mg/d L plus symptoms Blood Urea Nitrogen 16 10 - 20 mg/dL [facility] Creatinine 0.92 0.80 - 1.50 mg/dL [facility] Sodium 145 135 - 145 mmol/L [facility] Potassium 3.6 3.5 - 5.0 mmol/L [facility] Comment: Please note: ??Patients with WBC >100,000 may have falsely elevated Potassium levels. ??For accurate Potassium quantification in these patients send serum separator tube (gold top) for subsequent determinations. ??Contact the Clinical Chemistry Laboratory if there are any questions. Chloride 104 98 - 107 mmol/L [facility] Carbon Dioxide 27 22 - 31 mmol/L [facility] Anion Gap 14 5 - 15 mmol/L [facility] Calcium 8.6 8.5 - 10.5 mg/dL [facility] Est Glomerular Filtration Rate >60 >=60 [facility] Comment: The reported eGFR should be multiplied by 1.2 for patients. The MDRD is not an appropriate measure of renal function for patients with body mass extremes or in patients with acute kidney failure. http://RightsFlow.com/DHnkdep http://RightsFlow.com/DHMCnkf Blood specimen (specimen) 09/14/2017 2:09 PM EDT 09/14/2017 2:14 PM EDT Narrative Resulting Agency Comment Spec In Lab Reba Linton MD CHEMISTRY ORDERA BLES [facility] [place] [address] * Sodium (09/14/2017 9:37 AM EDT) Sodium 142 135 - 145 mmol/L [facility] Blood specimen (specimen) 09/14/2017 9:37 AM EDT 09/14/2017 9:40 AM EDT Narrative Resulting Agency Comment Spec In Lab Reba Linton MD CHEMISTRY ORDERA BLES Performing Organization Address City/[facility]/ZIP Co de Phone Number [facility] [place] [address] * Sodium (09/14/2017 5:07 AM EDT) Sodium 144 135 - 145 mmol/L [facility] Blood specimen (specimen) 09/14/2017 5:07 AM EDT 09/14/2017 5:30 AM EDT Narrative Resulting Agency Comment Spec In Lab Reba Linton MD CHEMISTRY ORDERA BLES Performing Organization Address City/[facility]/ZIP Co de Phone Number [facility] [place] [address] * Sodium (09/13/2017 9:42 PM EST) Sodium 138 135 - 145 mmol/L [facility] Blood specimen (specimen) 09/13/2017 9:42 PM EST 09/13/2017 9:50 PM EST Narrative Resulting Agency Comment Spec In Lab Reba Linton MD CHEMISTRY ORDERA BLES Performing Organization Address City/[facility]/ZIP Co de Phone Number [facility] [place] [address] * Sodium (09/13/2017 2:39 PM EST) Sodium 140 135 - 145 mmol/L [facility] Blood specimen (specimen) 09/13/2017 2:39 PM EST 09/13/2017 2:44 PM EST Narrative Resulting Agency Comment Spec In Lab Reba Linton MD CHEMISTRY ORDERA BLES Performing Organization Address [facility] [place] [address] * Osmolality (09/13/2017 9:09 AM EST) Osmolality 291 275 - 295 mOsm/kg [facility] Blood specimen (specimen) 09/13/2017 9:09 AM EST 09/13/2017 9:13 AM EST Narrative Resulting Agency Comment Spec In Lab Ren Sanchez III, MD CHEMISTRY ORDERABLES Performing Organization Address [facility] [place] [address] * Sodium (09/13/2017 9:09 AM EST) Sodium 143 135 - 145 mmol/L [facility] Blood specimen (specimen) 09/13/2017 9:09 AM EST 09/13/2017 9:13 AM EST Narrative Resulting Agency Comment Spec In Lab Ren Sanchez III, MD CHEMISTRY ORDERABLES Performing Organization Address [facility] Phone Number [facility] [place] [address] * Osmolality, urine, random (09/13/2017 4:35 AM EST) Osmolality, Urine 749 50 - 1,200 mOsm/kg [facility] Urine specimen (specimen) 09/13/2017 4:35 AM EST 09/13/2017 5:03 AM EST Narrative Resulting Agency Comment Spec In Lab Ren Sanchez III, MD URINE ORDERABLES Performing Organization Address [facility] de Phone Number [facility] [place] [address] * Sodium (09/13/2017 3:57 AM EST) Sodium 142 135 - 145 mmol/L [facility] Blood specimen (specimen) 09/13/2017 3:57 AM EST 09/13/2017 4:05 AM EST Narrative Resulting Agency Comment Spec In Lab Ren Sanchez III, MD CHEMISTRY ORDERABLES Performing Organization Address City/[facility]/ZIP Co de Phone Number [facility] [place] [address] * Osmolality (09/13/2017 3:57 AM EST) Osmolality 292 275 - 295 mOsm/kg [facility] Blood specimen (specimen) 09/13/2017 3:57 AM EST 09/13/2017 4:05 AM EST Narrative Resulting Agency Comment Spec In Lab Ren Sanchez III, MD CHEMISTRY ORDERABLES Performing Organization Address City/[facility]/ZIP Co de Phone Number [facility] [place] [address] * Osmolality, urine, random (09/13/2017 12:38 AM EST) Osmolality, Urine 620 50 - 1,200 mOsm/kg [facility] Urine specimen (specimen) 09/13/2017 12:38 AM EST 09/13/2017 12:56 AM EST Narrative Resulting Agency Comment Spec In Lab Ren Sanchez III, MD URINE ORDERABLES Performing Organization Address City/[facility]/ZIP Co de Phone Number [facility] [place] [address] * Osmolality (09/12/2017 11:43 PM EST) Osmolality 294 275 - 295 mOsm/kg [facility] Blood specimen (specimen) 09/12/2017 11:43 PM EST 09/12/2017 11:49 PM EST Narrative Resulting Agency Comment Spec In Lab Ren Sanchez III, MD CHEMISTRY ORDERABLES Performing Organization Address City/[facility] Co de Phone Number [facility] [place] [address] * Sodium (09/12/2017 11:43 PM EST) Sodium 143 135 - 145 mmol/L [facility] Blood specimen (specimen) 09/12/2017 11:43 PM EST 09/12/2017 11:49 PM EST Narrative Resulting Agency Comment Spec In Lab Ren Sanchez III, MD CHEMISTRY ORDERABLES Performing Organization Address [facility] de Phone Number [facility] [place] [address] * Osmolality, urine, random (09/12/2017 8:16 PM EST) Osmolality, Urine 773 50 - 1,200 mOsm/kg [facility] Urine specimen (specimen) 09/12/2017 8:16 PM EST 09/12/2017 8:36 PM EST Narrative Resulting Agency Comment Spec In Lab Ren Sanchez III, MD URINE ORDERABLES Performing Organization Address [facility] Co de Phone Number [facility] [place] [address] * (ABNORMAL) Osmolality (09/12/2017 7:39 PM EST) Osmolality 296(H) 275 - 295 mOsm/kg [facility] Blood specimen (specimen) 09/12/2017 7:39 PM EST 09/12/2017 7:54 PM EST Narrative Resulting Agency Comment Spec In Lab Ren Sanchez III, MD CHEMISTRY ORDERABLES Performing Organization Address City/[facility] Co de Phone Number [facility] [place] [address] * Sodium (09/12/2017 7:39 PM EST) Sodium 142 135 - 145 mmol/L [facility] Blood specimen (specimen) 09/12/2017 7:39 PM EST 09/12/2017 7:54 PM EST Narrative Resulting Agency Comment Spec In Lab Ren Sanchez III, MD CHEMISTRY ORDERABLES Performing Organization Address [facility] Co de Phone Number [facility] [place] [address] * Osmolality, urine, random (09/12/2017 3:54 PM EST) Osmolality, Urine 779 50 - 1,200 mOsm/kg [facility] Urine specimen (specimen) 09/12/2017 3:54 PM EST 09/12/2017 4:14 PM EST Narrative Resulting Agency Comment Spec In Lab Ren Sanchez III, MD URINE ORDERABLES Performing Organization Address [facility] Co de Phone Number [facility] [place] [address] * (ABNORMAL) Osmolality (09/12/2017 3:52 PM EST) Osmolality 303(H) 275 - 295 mOsm/kg [facility] Blood specimen (specimen) 09/12/2017 3:52 PM EST 09/12/2017 3:57 PM EST Narrative Resulting Agency Comment Spec In Lab Ren Sanchez III, MD CHEMISTRY ORDERABLES Performing Organization Address [facility] Co de Phone Number [facility] [place] [address] * Sodium (09/12/2017 3:52 PM EST) Sodium 145 135 - 145 mmol/L [facility] Blood specimen (specimen) 09/12/2017 3:52 PM EST 09/12/2017 3:57 PM EST Narrative Resulting Agency Comment Spec In Lab Ren Sanchez III, MD CHEMISTRY ORDERABLES Performing Organization Address City/[facility]/ZIP Co de Phone Number [facility] [place] [address] * Osmolality, urine, random (09/12/2017 1:19 PM EST) Osmolality, Urine 157 50 - 1,200 mOsm/kg [facility] Urine specimen (specimen) 09/12/2017 1:19 PM EST 09/12/2017 2:00 PM EST Narrative Resulting Agency Comment Spec In Lab Ren Sanchez III, MD URINE ORDERABLES Performing Organization Address [facility] Co de Phone Number [facility] [place] [address] * (ABNORMAL) Osmolality (09/12/2017 12:14 PM EST) Osmolality 302(H) 275 - 295 mOsm/kg [facility] Blood specimen (specimen) 09/12/2017 12:14 PM EST 09/12/2017 12:30 PM EST Narrative Resulting Agency Comment Spec In Lab Ren Sanchez III, MD CHEMISTRY ORDERABLES Performing Organization Address [facility] Co de Phone Number [facility] [place] [address] * (ABNORMAL) Sodium (09/12/2017 12:14 PM EST) Sodium 148(H) 135 - 145 mmol/L [facility] Blood specimen (specimen) 09/12/2017 12:14 PM EST 09/12/2017 12:30 PM EST Narrative Resulting Agency Comment Spec In Lab Ren Sanchez III, MD CHEMISTRY ORDERABLES Performing Organization Address City/[facility] Co de Phone Number [facility] [place] [address] * Sodium (09/12/2017 7:48 AM EST) Sodium 141 135 - 145 mmol/L [facility] Blood specimen (specimen) 09/12/2017 7:48 AM EST 09/12/2017 8:06 AM EST Narrative Resulting Agency Comment Spec In Lab Ren Sanchez III, MD CHEMISTRY ORDERABLES Performing Organization Address [facility] Co de Phone Number [facility] [place] [address] * Sodium (09/12/2017 4:01 AM EST) Sodium 136 135 - 145 mmol/L [facility] Blood specimen (specimen) 09/12/2017 4:01 AM EST 09/12/2017 4:06 AM EST Narrative Resulting Agency Comment Spec In Lab Ren Sanchez III, MD CHEMISTRY ORDERABLES Performing Organization Address [facility] Co de Phone Number [facility] [place] [address] * (ABNORMAL) Sodium (09/12/2017 12:02 AM EST) Sodium 133(L) 135 - 145 mmol/L [facility] Blood specimen (specimen) 09/12/2017 12:02 AM EST 09/12/2017 12:06 AM EST Narrative Resulting Agency Comment Spec In Lab Ren Sanchez III, MD CHEMISTRY ORDERABLES Performing Organization Address City/[facility] Co de Phone Number [facility] [place] [address] * Sodium (09/11/2017 7:53 PM EST) Sodium 135 135 - 145 mmol/L [facility] Blood specimen (specimen) 09/11/2017 7:53 PM EST 09/11/2017 7:57 PM EST Narrative Resulting Agency Comment Spec In Lab Ren Sanchez III, MD CHEMISTRY ORDERABLES Performing Organization Address City/[facility] Co de Phone Number [facility] [place] [address] * Sodium (09/11/2017 5:56 PM EST) Sodium 135 135 - 145 mmol/L [facility] Blood specimen (specimen) 09/11/2017 5:56 PM EST 09/11/2017 6:06 PM EST Narrative Resulting Agency Comment Spec In Lab Ren Sanchez III, MD CHEMISTRY ORDERABLES Performing Organization Address City/[facility] Co de Phone Number [facility] [place] [address] * Sodium (09/11/2017 3:15 PM EST) Sodium 135 135 - 145 mmol/L [facility] Blood specimen (specimen) 09/11/2017 3:15 PM EST 09/11/2017 3:22 PM EST Narrative Resulting Agency Comment Spec In Lab Ren Sanchez III, MD CHEMISTRY ORDERABLES Performing Organization Address [facility] Co de Phone Number [facility] [place] [address] * (ABNORMAL) Sodium (09/11/2017 12:51 PM EST) Sodium 134(L) 135 - 145 mmol/L [facility] Blood specimen (specimen) 09/11/2017 12:51 PM EST 09/11/2017 1:03 PM EST Narrative Resulting Agency Comment Spec In Lab Ren Sanchez III, MD CHEMISTRY ORDERABLES Performing Organization Address City/[facility] Co de Phone Number [facility] [place] [address] * (ABNORMAL) Sodium (09/11/2017 10:48 AM EST) Sodium 132(L) 135 - 145 mmol/L [facility] Blood specimen (specimen) 09/11/2017 10:48 AM EST 09/11/2017 10:55 AM EST Narrative Resulting Agency Comment Spec In Lab Ren Sanchez III, MD CHEMISTRY ORDERABLES Performing Organization Address [facility] Co de Phone Number [facility] [place] [address] * (ABNORMAL) Osmolality (09/11/2017 8:33 AM EST) Osmolality 271(L) 275 - 295 mOsm/kg [facility] Blood specimen (specimen) 09/11/2017 8:33 AM EST 09/11/2017 8:39 AM EST Narrative Resulting Agency Comment Spec In Lab Ren Sanchez III, MD CHEMISTRY ORDERABLES Performing Organization Address [facility] Phone Number [facility] [place] [address] * (ABNORMAL) Sodium (09/11/2017 8:33 AM EST) Sodium 131(L) 135 - 145 mmol/L [facility] Blood specimen (specimen) 09/11/2017 8:33 AM EST 09/11/2017 8:39 AM EST Narrative Resulting Agency Comment Spec In Lab Ren Sanchez III, MD CHEMISTRY ORDERABLES Performing Organization Address [facility] de Phone Number [facility] [place] [address] * Osmolality, urine, random (09/11/2017 7:56 AM EST) Osmolality, Urine 571 50 - 1,200 mOsm/kg [facility] Urine specimen (specimen) 09/11/2017 7:56 AM EST 09/11/2017 8:16 AM EST Narrative Resulting Agency Comment Spec In Lab Ren Sanchez III, MD URINE ORDERABLES Performing Organization Address [facility] Co de Phone Number [facility] [place] [address] * (ABNORMAL) Basic Metabolic Panel (non-fasting) (09/11/2017 3:47 AM EST) Glucose 89 65 - 199 mg/dL [facility] Comment:Diabetes: >=200 mg/d L plus symptoms Blood Urea Nitrogen 14 10 - 20 mg/dL [facility] Creatinine 0.63(L) 0.80 - 1.50 mg/dL [facility] Sodium 128(L) 135 - 145 mmol/L [facility] Potassium 3.5 3.5 - 5.0 mmol/L [facility] Comment: Please note: ??Patients with WBC >100,000 may have falsely elevated Potassium levels. ??For accurate Potassium quantification in these patients send serum separator tube (gold top) for subsequent determinations. ??Contact the Clinical Chemistry Laboratory if there are any questions. Chloride 91(L) 98 - 107 mmol/L [facility] Carbon Dioxide 24 22 - 31 mmol/L [facility] Anion Gap 13 5 - 15 mmol/L [facility] Calcium 8.1(L) 8.5 - 10.5 mg/dL [facility] Est Glomerular Filtration Rate >60 >=60 [facility] Comment: The reported eGFR should be multiplied by 1.2 for patients. The MDRD is not an appropriate measure of renal function for patients with body mass extremes or in patients with acute kidney failure. [email or web address] Blood specimen (specimen) 09/11/2017 3:47 AM EST 09/11/2017 4:03 AM EST Narrative Resulting Agency Comment Spec In Lab Ren Sanchez III, MD CHEMISTRY ORDERABLES [facility] [place] [address] * (ABNORMAL) Sodium (09/10/2017 6:57 PM EST) Sodium 130(L) 135 - 145 mmol/L [facility] Blood specimen (specimen) 09/10/2017 6:57 PM EST 09/10/2017 7:02 PM EST Narrative Resulting Agency Comment Spec In Lab Ren Sanchez III, MD CHEMISTRY ORDERABLES [facility] [place] [address] * (ABNORMAL) Differential, Automated (09/10/2017 3:50 AM EST) Neutrophil % 51.9 % [facility] Neutrophil Absolute 4.55 1.70 - 6.10 x10(3)/[facility] Lymph % 21.8 % [facility] Lymphocytes Abs 1.9 0.9 - 3.2 x10(3)/[facility] LAB[facility]ORY Monocyte % 10.6 % [facility] Monocyte Abs 0.9 0.3 - 0.9 x10(3)/[facility] LAB[facility] Eos % 7.0 % [facility] Eosinophils Abs 0.6(H) 0.0 - 0.4 x10(3)/[facility] LAB[facility] Basophil % 0.6 % [facility] Baso Absolute 0.0 0.0 - 0.1 x10(3)/[facility] LABOR[facility]ORY Immature Gran % 8.10 % [facility] Comment: Immature granulocytes(IG's)percentage and absolute count will include metamyelocytes, myelocytes, and promyelocytes. Blood smears from CBCs yielding IG's will be scanned manually for concordance. If this scan disagrees with the automated IG or if promyelocytes are noted, a manual differential will be performed. Immature Gran Absolute 0.71(H) 0.00 - 0.04 x10(3)/ L [facility] Blood specimen (specimen) 09/10/2017 3:50 AM EST 09/10/2017 4:15 AM EST Narrative Resulting Agency Comment Spec In Lab Christopher Dalal MD HEMATOLOGY ORDERABLE S [facility] [place] [address] * (ABNORMAL) Hemogram (09/10/2017 3:50 AM EST) White Blood Cell 8.8 4.0 - 9.5 x10(3)/mc L [facility] Red Blood Cell 3.06(L) 4.58 - 5.54 x10(6)/mc L [facility] Hemoglobin 8.5(L) 13.7 - 16.5 gm/dL [facility] Hematocrit 25.7(L) 40.5 - 48.5 % [facility] Mean Cell Volume 84.0 82.9 - 93.1 fL [facility] Mean Cell Hemoglobin 27.8 27.5 - 32.1 pg [facility] Mean Cell Hemoglobin Concentration 33.1 32.0 - 35.7 gm/dL [facility] Platelet 332 145 - 357 x10(3)/mc L [facility] RDW Standard Deviation 45.8(H) 36.0 - 45.0 fL [facility] RDW coefficient of variation 15.7(H) 11.4 - 13.8 % [facility] Mean Platelet Volume 9.1 7.6 - 12.9 fL [facility] NRBC% auto 0.3 % [facility] NRBC Absolute 0.030(H) 0.000 - 0.000 x10(3)/mc L [facility] Blood specimen (specimen) 09/10/2017 3:50 AM EST 09/10/2017 4:15 AM EST Narrative Resulting Agency Comment Spec In Lab Christopher Dalal MD HEMATOLOGY ORDERABLE S [facility] [place] [address] * Sodium (09/10/2017 3:50 AM EST) Sodium 138 135 - 145 mmol/L [facility] Blood specimen (specimen) 09/10/2017 3:50 AM EST 09/10/2017 4:15 AM EST Narrative Resulting Agency Comment Spec In Lab Ren Sanchez III, MD CHEMISTRY ORDERABLES Performing Organization Address [facility] de Phone Number [facility] [place] [address] * Sodium (09/09/2017 11:02 AM EST) Sodium 141 135 - 145 mmol/L [facility] Blood specimen (specimen) 09/09/2017 11:02 AM EST 09/09/2017 11:13 AM EST Narrative Resulting Agency Comment Spec In Lab Ren Sanchez III, MD CHEMISTRY ORDERABLES Performing Organization Address [facility] de Phone Number [facility] [place] [address] * Scan, Peripheral Blood (09/09/2017 3:21 AM EST) Pathologist [facility] Plat estimate Normal [facility] RBC Morphology Abnormal [facility] Polychromasia Present >5/HPF [facility] Ovalocytes 1-5 /HPF [facility] Blood specimen (specimen) 09/09/2017 3:21 AM EST 09/09/2017 3:31 AM EST Narrative Resulting Agency Comment Spec In Lab Christopher Dalal MD HEMATOLOGY ORDERABLE S Performing Organization Address [facility] Co de Phone Number [facility] [place] [address] * (ABNORMAL) Differential, Automated (09/09/2017 3:21 AM EST) Pathologist [facility] Neutrophil % 50.7 % [facility] Neutrophil Absolute 3.95 1.70 - 6.10 x10(3)/mc L [facility] Lymph % 21.8 % [facility] Lymphocytes Abs 1.7 0.9 - 3.2 x10(3)/[facility] LAB[facility] Monocyte % 10.3 % [facility] Monocyte Abs 0.8 0.3 - 0.9 x10(3)/[facility] Eos % 7.9 % [facility] Eosinophils Abs 0.6(H) 0.0 - 0.4 x10(3)/[facility] Basophil % 0.8 % [facility] Baso Absolute 0.1 0.0 - 0.1 x10(3)/[facility] LAB[facility] Immature Gran % 8.50 % [facility] Comment: Immature granulocytes(IG's)percentage and absolute count will include metamyelocytes, myelocytes, and promyelocytes. Blood smears from CBCs yielding IG's will be scanned manually for concordance. If this scan disagrees with the automated IG or if promyelocytes are noted, a manual differential will be performed. Immature Gran Absolute 0.66(H) 0.00 - 0.04 x10(3)/[facility] Blood specimen (specimen) 09/09/2017 3:21 AM EST 09/09/2017 3:31 AM EST Narrative Resulting Agency Comment Spec In Lab Christopher Dalal MD HEMATOLOGY ORDERABLE S Performing Organization Address City/State/[facility] Co de Phone Number [facility] [place] [address] * (ABNORMAL) Hemogram (09/09/2017 3:21 AM EST) White Blood Cell 7.8 4.0 - 9.5 x10(3)/[facility] LAB[facility] Red Blood Cell 2.80(L) 4.58 - 5.54 x10(6)/[facility] Hemoglobin 7.7(L) 13.7 - 16.5 gm/dL [facility] Hematocrit 23.7(L) 40.5 - 48.5 % [facility] Mean Cell Volume 84.6 82.9 - 93.1 fL [facility] Mean Cell Hemoglobin 27.5 27.5 - 32.1 pg [facility] Mean Cell Hemoglobin Concentration 32.5 32.0 - 35.7 gm/dL [facility] Platelet 245 145 - 357 x10(3)/mc L [facility] RDW Standard Deviation 46.8(H) 36.0 - 45.0 fL [facility] RDW coefficient of variation 15.5(H) 11.4 - 13.8 % [facility] Mean Platelet Volume 9.1 7.6 - 12.9 fL [facility] NRBC% auto 0.8 % [facility] NRBC Absolute 0.060(H) 0.000 - 0.000 x10(3)/mc L [facility] Blood specimen (specimen) 09/09/2017 3:21 AM EST 09/09/2017 3:31 AM EST Narrative Resulting Agency Comment Spec In Lab Christopher Dalal MD HEMATOLOGY ORDERABLE S Performing Organization Address City/[facility] Co de Phone Number [facility] [place] [address] * Sodium (09/09/2017 3:21 AM EST) Sodium 140 135 - 145 mmol/L [facility] Blood specimen (specimen) 09/09/2017 3:21 AM EST 09/09/2017 3:31 AM EST Narrative Resulting Agency Comment Spec In Lab Ren Sanchez III, MD CHEMISTRY ORDERABLES Performing Organization Address [facility] Co de Phone Number [facility] [place] [address] * Sodium (09/08/2017 6:19 PM EST) Sodium 138 135 - 145 mmol/L [facility] Blood specimen (specimen) 09/08/2017 6:19 PM EST 09/08/2017 6:26 PM EST Narrative Resulting Agency Comment Spec In Lab Ren Sanchez III, MD CHEMISTRY ORDERABLES Performing Organization Address City/[facility]/ZIP Co de Phone Number [facility] [place] [address] * U24 Hrs and Volume (09/08/2017 6:00 PM EST) Hours Collected 24 hour(s) [facility] Total Volume 4,[address] [facility] Urine specimen (specimen) 09/08/2017 6:00 PM EST 09/08/2017 6:42 PM EST Narrative Resulting Agency Comment Spec In Lab Ren Sanchez III, MD CHEMISTRY ORDERABLES Performing Organization Address [facility] Co de Phone Number [facility] [place] [address] * Phosphorus, urine, 24 hour (09/08/2017 6:00 PM EST) Phosphorus Concentration, U24 12.5 mg/dL [facility] Phosphorus, 24 Hour Urine 0.6 0.4 - 1.3 gm/24hr [facility] Urine specimen (specimen) 09/08/2017 6:00 PM EST 09/08/2017 6:42 PM EST Narrative Resulting Agency Comment Spec In Lab Ren Sanchez III, MD URINE ORDERABLES Performing Organization Address City/[facility]/ZIP Co de Phone Number [facility] [place] [address] * Creatinine, urine, 24 hour (09/08/2017 6:00 PM EST) Cre Concentration, U24 37 mg/dL [facility] Creatinine, 24 Hour Urine 1.74 0.80 - 1.90 gm/24hr [facility] Urine specimen (specimen) 09/08/2017 6:00 PM EST 09/08/2017 6:42 PM EST Narrative Resulting Agency Comment Spec In Lab Ren Sanchez III, MD URINE ORDERABLES Performing Organization Address [facility] Co de Phone Number [facility] [place] [address] * (ABNORMAL) Calcium, urine, 24 hour (09/08/2017 6:00 PM EST) Ca Concentration, U24 7.6 mg/dL [facility] Calcium, 24 Hour Urine 357.2(H) 50.0 - 300.0 mg/24hr [facility] Comment:Reference Range: 50. 0-300.0 mg/24 hour based on diet. Urine specimen (specimen) 09/08/2017 6:00 PM EST 09/08/2017 6:42 PM EST Narrative Resulting Agency Comment Spec In Lab Ren Sanchez III, MD URINE ORDERABLES Performing Organization Address [facility] Co de Phone Number [facility] [place] [address] * Sodium (09/08/2017 11:58 AM EST) Pathologist [facility] Sodium 141 135 - 145 mmol/L [facility] Blood specimen (specimen) 09/08/2017 11:58 AM EST 09/08/2017 12:11 PM EST Narrative Resulting Agency Comment Spec In Lab Ren Sanchez III, MD CHEMISTRY ORDERABLES Performing Organization Address [facility] Co de Phone Number [facility] [place] [address] * (ABNORMAL) Differential, Automated (09/08/2017 3:34 AM EST) Neutrophil % 53.0 % [facility] Neutrophil Absolute 3.33 1.70 - 6.10 x10(3)/mc L [facility] Lymph % 25.8 % [facility] Lymphocytes Abs 1.6 0.9 - 3.2 x10(3)/mc L [facility] Monocyte % 8.4 % [facility] Monocyte Abs 0.5 0.3 - 0.9 x10(3)/mc L [facility] Eos % 8.8 % [facility] Eosinophils Abs 0.6(H) 0.0 - 0.4 x10(3)/ L [facility] Basophil % 0.3 % [facility] Baso Absolute 0.0 0.0 - 0.1 x10(3)/ L [facility] Immature Gran % 3.70 % [facility] Comment: Immature granulocytes(IG's)percentage and absolute count will include metamyelocytes, myelocytes, and promyelocytes. Blood smears from CBCs yielding IG's will be scanned manually for concordance. If this scan disagrees with the automated IG or if promyelocytes are noted, a manual differential will be performed. Immature Gran Absolute 0.23(H) 0.00 - 0.04 x10(3)/ L [facility] Blood specimen (specimen) 09/08/2017 3:34 AM EST 09/08/2017 3:59 AM EST Narrative Resulting Agency Comment Spec In Lab Christopher Dalal MD HEMATOLOGY ORDERABLE S [facility] [place] [address] * (ABNORMAL) Hemogram (09/08/2017 3:34 AM EST) White Blood Cell 6.3 4.0 - 9.5 x10(3)/ L [facility] Red Blood Cell 2.64(L) 4.58 - 5.54 x10(6)/ L [facility] Hemoglobin 7.2(L) 13.7 - 16.5 gm/dL [facility] Hematocrit 21.8(L) 40.5 - 48.5 % [facility] Mean Cell Volume 82.6(L) 82.9 - 93.1 fL [facility] Mean Cell Hemoglobin 27.3(L) 27.5 - 32.1 pg [facility] Mean Cell Hemoglobin Concentration 33.0 32.0 - 35.7 gm/dL [facility] Platelet 206 145 - 357 x10(3)/mc L [facility] RDW Standard Deviation 45.4(H) 36.0 - 45.0 fL [facility] RDW coefficient of variation 15.4(H) 11.4 - 13.8 % [facility] Mean Platelet Volume 9.3 7.6 - 12.9 [facility] NRBC% auto 0.8 % [facility] NRBC Absolute 0.050(H) 0.000 - 0.000 x10(3)/mc L [facility] Blood specimen (specimen) 09/08/2017 3:34 AM EST 09/08/2017 3:59 AM EST Narrative Resulting Agency Comment Spec In Lab Christopher Dalal MD HEMATOLOGY ORDERABLE S Performing Organization Address City/[facility] Co de Phone Number [facility] [place] [address] * Sodium (09/08/2017 3:34 AM EST) Sodium 143 135 - 145 mmol/L [facility] Blood specimen (specimen) 09/08/2017 3:34 AM EST 09/08/2017 3:59 AM EST Narrative Resulting Agency Comment Spec In Lab Ren Sanchez III, MD CHEMISTRY ORDERABLES Performing Organization Address City/[facility]/ZIP Co de Phone Number [facility] [place] [address] * Phosphorus (09/08/2017 3:34 AM EST) Phosphorus 3.2 2.5 - 4.5 mg/dL [facility] Blood specimen (specimen) 09/08/2017 3:34 AM EST 09/08/2017 3:59 AM EST Narrative Resulting Agency Comment Spec In Lab Ren Sanchez III, MD CHEMISTRY ORDERABLES Performing Organization Address [facility] Co de Phone Number [facility] [place] [address] * (ABNORMAL) Calcium (09/08/2017 3:34 AM EST) Calcium 7.8(L) 8.5 - 10.5 mg/dL [facility] Blood specimen (specimen) 09/08/2017 3:34 AM EST 09/08/2017 3:59 AM EST Narrative Resulting Agency Comment Spec In Lab Ren Sanchez III, MD CHEMISTRY ORDERABLES Performing Organization Address [facility] Co de Phone Number [facility] [place] [address] * Sodium (09/07/2017 12:20 PM EST) Sodium 140 135 - 145 mmol/L [facility] Blood specimen (specimen) 09/07/2017 12:20 PM EST 09/07/2017 12:26 PM EST Narrative Resulting Agency Comment Spec In Lab Ren Sanchez III, MD CHEMISTRY ORDERABLES Performing Organization Address [facility] Co de Phone Number [facility] [place] [address] * Sodium (09/07/2017 4:01 AM EST) Sodium 141 135 - 145 mmol/L [facility] Blood specimen (specimen) 09/07/2017 4:01 AM EST 09/07/2017 4:33 AM EST Narrative Resulting Agency Comment Spec In Lab Fran Gilliam MD CHEMISTRY ORDERABL ES Performing Organization Address City/[facility] Co de Phone Number [facility] [place] [address] * (ABNORMAL) Differential, Automated (09/07/2017 4:01 AM EST) Neutrophil % 64.9 % [facility] Neutrophil Absolute 3.64 1.70 - 6.10 x10(3)/ L [facility] Lymph % 20.0 % [facility] Lymphocytes Abs 1.1 0.9 - 3.2 x10(3)/ L [facility] Monocyte % 7.8 % [facility] Monocyte Abs 0.4 0.3 - 0.9 x10(3)/[facility] Eos % 4.8 % [facility] Eosinophils Abs 0.3 0.0 - 0.4 x10(3)/[facility] Basophil % 0.5 % [facility] Baso Absolute 0.0 0.0 - 0.1 x10(3)/[facility] Immature Gran % 2.00 % [facility] Comment: Immature granulocytes(IG's)percentage and absolute count will include metamyelocytes, myelocytes, and promyelocytes. Blood smears from CBCs yielding IG's will be scanned manually for concordance. If this scan disagrees with the automated IG or if promyelocytes are noted, a manual differential will be performed. Immature Gran Absolute 0.11(H) 0.00 - 0.04 x10(3)/ L [facility] Blood specimen (specimen) 09/07/2017 4:01 AM EST 09/07/2017 4:33 AM EST Narrative Resulting Agency Comment Spec In Lab Christopher Dalal MD HEMATOLOGY ORDERABLE S [facility] [place] [address] * (ABNORMAL) Hemogram (09/07/2017 4:01 AM EST) Pathologist [facility] White Blood Cell 5.6 4.0 - 9.5 x10(3)/ L [facility] Red Blood Cell 2.52(L) 4.58 - 5.54 x10(6)/mc L [facility] Hemoglobin 7.0(L) 13.7 - 16.5 gm/dL [facility] Hematocrit 20.5(L) 40.5 - 48.5 % [facility] Mean Cell Volume 81.3(L) 82.9 - 93.1 fL [facility] Mean Cell Hemoglobin 27.8 27.5 - 32.1 pg [facility] Mean Cell Hemoglobin Concentration 34.1 32.0 - 35.7 gm/dL [facility] Platelet 162 145 - 357 x10(3)/[facility] RDW Standard Deviation 44.5 36.0 - 45.0 [facility] RDW coefficient of variation 15.3(H) 11.4 - 13.8 % [facility] Mean Platelet Volume 9.5 7.6 - 12.9 [facility] NRBC% auto 0.4 % [facility] NRBC Absolute 0.020(H) 0.000 - 0.000 x10(3)/[facility] Blood specimen (specimen) 09/07/2017 4:01 AM EST 09/07/2017 4:33 AM EST Narrative Resulting Agency Comment Spec In Lab Christopher Dalal MD HEMATOLOGY ORDERABLE S [facility] [place] [address] * Sodium (09/06/2017 11:27 PM EST) Sodium 144 135 - 145 mmol/L [facility] Blood specimen (specimen) 09/06/2017 11:27 PM EST 09/07/2017 12:10 AM EST Narrative Resulting Agency Comment Spec In Lab Fran Gilliam MD CHEMISTRY ORDERABL ES Performing Organization Address [facility] Co de Phone Number [facility] [place] [address] * (ABNORMAL) Calcium (09/06/2017 11:27 PM EST) Calcium 7.6(L) 8.5 - 10.5 mg/dL [facility] Blood specimen (specimen) 09/06/2017 11:27 PM EST 09/07/2017 12:10 AM EST Narrative Resulting Agency Comment Spec In Lab Ren Sanchez III, MD CHEMISTRY ORDERABLES Performing Organization Address [facility] Co de Phone Number [facility] [place] [address] * Phosphorus (09/06/2017 11:27 PM EST) Phosphorus 3.4 2.5 - 4.5 mg/dL [facility] Blood specimen (specimen) 09/06/2017 11:27 PM EST 09/07/2017 12:10 AM EST Narrative Resulting Agency Comment Spec In Lab Ren Sanchez III, MD CHEMISTRY ORDERABLES Performing Organization Address [facility] Co de Phone Number [facility] [place] [address] * Sodium (09/06/2017 7:41 PM EST) Sodium 143 135 - 145 mmol/L [facility] Blood specimen (specimen) 09/06/2017 7:41 PM EST 09/06/2017 7:45 PM EST Narrative Resulting Agency Comment Spec In Lab Fran Gilliam MD CHEMISTRY ORDERABL ES Performing Organization Address [facility] Co de Phone Number [facility] [place] [address] * Sodium (09/06/2017 3:49 PM EST) Sodium 144 135 - 145 mmol/L [facility] Blood specimen (specimen) Venous Draw / Unknown 09/06/2017 3:49 PM EST 09/06/2017 3:58 PM EST Narrative Resulting Agency Comment Spec In Lab Guerrero Tillman MD CHEMISTRY HERMES HANNON Performing Organization Address [facility] Co de Phone Number [facility] [place] [address] * (ABNORMAL) Calcium (09/06/2017 3:49 PM EST) Calcium 8.0(L) 8.5 - 10.5 mg/dL [facility] Blood specimen (specimen) 09/06/2017 3:49 PM EST 09/06/2017 3:58 PM EST Narrative Resulting Agency Comment Spec In Lab Ren Sanchez III, MD CHEMISTRY ORDERABLES Performing Organization Address [facility] Co de Phone Number [facility] [place] [address] * Phosphorus (09/06/2017 3:49 PM EST) Phosphorus 3.9 2.5 - 4.5 mg/dL [facility] Blood specimen (specimen) 09/06/2017 3:49 PM EST 09/06/2017 3:58 PM EST Narrative Resulting Agency Comment Spec In Lab Ren Sanchez III, MD CHEMISTRY ORDERABLES Performing Organization Address [facility] Co de Phone Number [facility] [place] [address] * (ABNORMAL) Albumin Level (09/06/2017 12:31 PM EST) Albumin 2.5(L) 3.2 - 5.2 gm/dL [facility] Blood specimen (specimen) 09/06/2017 12:31 PM EST 09/06/2017 12:38 PM EST Narrative Resulting Agency Comment Spec In Lab Genevieve Page MD CHEMISTRY ORDERABLES Performing Organization Address [facility] Co de Phone Number [facility] [place] [address] * Sodium (09/06/2017 12:31 PM EST) Sodium 145 135 - 145 mmol/L [facility] Blood specimen (specimen) 09/06/2017 12:31 PM EST 09/06/2017 12:37 PM EST Narrative Resulting Agency Comment Spec In Lab Fran Gilliam MD CHEMISTRY ORDERABL ES Performing Organization Address [facility] de Phone Number [facility] [place] [address] * (ABNORMAL) Albumin Level (09/06/2017 8:33 AM EST) Albumin 2.4(L) 3.2 - 5.2 gm/dL [facility] Blood specimen (specimen) 09/06/2017 8:33 AM EST 09/06/2017 8:39 AM EST Narrative Resulting Agency Comment Spec In Lab Genevieve Page MD CHEMISTRY ORDERABLES Performing Organization Address [facility] de Phone Number [facility] [place] [address] * Phosphorus (09/06/2017 8:33 AM EST) Phosphorus 3.2 2.5 - 4.5 mg/dL [facility] Blood specimen (specimen) 09/06/2017 8:33 AM EST 09/06/2017 8:39 AM EST Narrative Resulting Agency Comment Spec In Lab Fran Gilliam MD CHEMISTRY ORDERABL ES Performing Organization Address [facility] Co de Phone Number [facility] [place] [address] * (ABNORMAL) Calcium (09/06/2017 8:33 AM EST) Calcium 8.1(L) 8.5 - 10.5 mg/dL [facility] Blood specimen (specimen) 09/06/2017 8:33 AM EST 09/06/2017 8:39 AM EST Narrative Resulting Agency Comment Spec In Lab Fran Gilliam MD CHEMISTRY ORDERABL ES Performing Organization Address [facility]/ZIP Co de Phone Number [facility] [place] [address] * (ABNORMAL) Sodium (09/06/2017 8:33 AM EST) Sodium 146(H) 135 - 145 mmol/L [facility] Blood specimen (specimen) 09/06/2017 8:33 AM EST 09/06/2017 8:39 AM EST Narrative Resulting Agency Comment Spec In Lab Fran Gilliam MD CHEMISTRY ORDERABL ES Performing Organization Address [facility] Co de Phone Number [facility] [place] [address] * (ABNORMAL) Basic Metabolic Panel (non-fasting) (09/06/2017 8:33 AM EST) Glucose 72 65 - 199 mg/dL [facility] Comment:Diabetes: >=200 mg/d L plus symptoms Blood Urea Nitrogen 18 10 - 20 mg/dL [facility] Creatinine 0.79(L) 0.80 - 1.50 mg/dL [facility] Sodium 146(H) 135 - 145 mmol/L [facility] Potassium 3.7 3.5 - 5.0 mmol/L [facility] Comment: Please note: ??Patients with WBC >100,000 may have falsely elevated Potassium levels. ??For accurate Potassium quantification in these patients send serum separator tube (gold top) for subsequent determinations. ??Contact the Clinical Chemistry Laboratory if there are any questions. Chloride 111(H) 98 - 107 mmol/L [facility] Carbon Dioxide 26 22 - 31 mmol/L [facility] Anion Gap 9 5 - 15 mmol/L [facility] Calcium 8.1(L) 8.5 - 10.5 mg/dL [facility] Est Glomerular Filtration Rate >60 >=60 [facility] Comment: The reported eGFR should be multiplied by 1.2 for patients. The MDRD is not an appropriate measure of renal function for patients with body mass extremes or in patients with acute kidney failure. http://SeeWhy/DHnkdep http://SeeWhy/DHMCnkf Blood specimen (specimen) 09/06/2017 8:33 AM EST 09/06/2017 8:39 AM EST Narrative Resulting Agency Comment Spec In Lab Fran Gilliam MD CHEMISTRY ORDERABL ES [facility] [place] [address] * (ABNORMAL) Hemogram (09/06/2017 8:33 AM EST) White Blood Cell 7.0 4.0 - 9.5 x10(3)/mc L [facility] Red Blood Cell 2.87(L) 4.58 - 5.54 x10(6)/mc L [facility] Hemoglobin 7.8(L) 13.7 - 16.5 gm/dL [facility] Hematocrit 23.4(L) 40.5 - 48.5 % [facility] Mean Cell Volume 81.5(L) 82.9 - 93.1 fL [facility] Mean Cell Hemoglobin 27.2(L) 27.5 - 32.1 pg [facility] Mean Cell Hemoglobin Concentration 33.3 32.0 - 35.7 gm/dL [facility] Platelet 149 145 - 357 x10(3)/mc L [facility] RDW Standard Deviation 44.3 36.0 - 45.0 fL [facility] RDW coefficient of variation 15.2(H) 11.4 - 13.8 % [facility] Mean Platelet Volume 9.8 7.6 - 12.9 fL [facility] NRBC% auto 0.3 % [facility] NRBC Absolute 0.020(H) 0.000 - 0.000 x10(3)/mc L [facility] Blood specimen (specimen) 09/06/2017 8:33 AM EST 09/06/2017 8:39 AM EST Narrative Resulting Agency Comment Spec In Lab Juliet Medeiros APRN HEMATOLOGY ORDERABLE S [facility] [place] [address] * (ABNORMAL) Basic Metabolic Panel (non-fasting) (09/06/2017 4:31 AM EST) Glucose 92 65 - 199 mg/dL [facility] Comment:Diabetes: >=200 mg/d L plus symptoms Blood Urea Nitrogen 16 10 - 20 mg/dL [facility] Comment:result rechecked-IMM Creatinine 0.75(L) 0.80 - 1.50 mg/dL [facility] Sodium 144 135 - 145 mmol/L [facility] Potassium 3.6 3.5 - 5.0 mmol/L [facility] Comment: Please note: ??Patients with WBC >100,000 may have falsely elevated Potassium levels. ??For accurate Potassium quantification in these patients send serum separator tube (gold top) for subsequent determinations. ??Contact the Clinical Chemistry Laboratory if there are any questions. Chloride 109(H) 98 - 107 mmol/L [facility] Carbon Dioxide 25 22 - 31 mmol/L [facility] Anion Gap 10 5 - 15 mmol/L [facility] Calcium 7.7(L) 8.5 - 10.5 mg/dL [facility] Est Glomerular Filtration Rate >60 >=60 [facility] Comment: The reported eGFR should be multiplied by 1.2 for patients. The MDRD is not an appropriate measure of renal function for patients with body mass extremes or in patients with acute kidney failure. http://SeeWhy/DHnkdep http://SeeWhy/DHMCnkf Blood specimen (specimen) 09/06/2017 4:31 AM EST 09/06/2017 5:04 AM EST Narrative Resulting Agency Comment Spec In Lab Fran Gilliam MD CHEMISTRY ORDERABL ES Performing Organization Address [facility] Co de Phone Number [facility] [place] [address] * Phosphorus (09/06/2017 4:31 AM EST) Phosphorus 3.5 2.5 - 4.5 mg/dL [facility] Blood specimen (specimen) 09/06/2017 4:31 AM EST 09/06/2017 5:04 AM EST Narrative Resulting Agency Comment Spec In Lab Fran Gilliam MD CHEMISTRY ORDERABL ES Performing Organization Address [facility] Co de Phone Number [facility] [place] [address] * (ABNORMAL) Calcium (09/06/2017 4:31 AM EST) Calcium 7.7(L) 8.5 - 10.5 mg/dL [facility] Blood specimen (specimen) 09/06/2017 4:31 AM EST 09/06/2017 5:04 AM EST Narrative Resulting Agency Comment Spec In Lab Fran Gilliam MD CHEMISTRY ORDERABL ES Performing Organization Address [facility] Co de Phone Number [facility] [place] [address] * Sodium (09/06/2017 4:31 AM EST) Sodium 144 135 - 145 mmol/L [facility] Blood specimen (specimen) 09/06/2017 4:31 AM EST 09/06/2017 5:04 AM EST Narrative Resulting Agency Comment Spec In Lab Fran Gilliam MD CHEMISTRY ORDERABL ES Performing Organization Address [facility]/ZIP Co de Phone Number [facility] [place] [address] * (ABNORMAL) Albumin Level (09/06/2017 4:31 AM EST) Pathologist [facility] Albumin 2.6(L) 3.2 - 5.2 gm/dL [facility] Blood specimen (specimen) 09/06/2017 4:31 AM EST 09/06/2017 5:05 AM EST Narrative Resulting Agency Comment Spec In Lab Genevieve Page MD CHEMISTRY ORDERABLES Performing Organization Address [facility] Co de Phone Number [facility] [place] [address] * (ABNORMAL) Differential, Automated (09/06/2017 4:31 AM EST) Neutrophil % 60.5 % [facility] Neutrophil Absolute 4.00 1.70 - 6.10 x10(3)/mc L [facility] Lymph % 24.2 % [facility] Lymphocytes Abs 1.6 0.9 - 3.2 x10(3)/mc L [facility] Monocyte % 9.5 % [facility] Monocyte Abs 0.6 0.3 - 0.9 x10(3)/mc L [facility] Eos % 3.8 % [facility] Eosinophils Abs 0.2 0.0 - 0.4 x10(3)/mc L [facility] Basophil % 0.5 % [facility] Baso Absolute 0.0 0.0 - 0.1 x10(3)/mc L [facility] Immature Gran % 1.50 % [facility] Comment: Immature granulocytes(IG's)percentage and absolute count will include metamyelocytes, myelocytes, and promyelocytes. Blood smears from CBCs yielding IG's will be scanned manually for concordance. If this scan disagrees with the automated IG or if promyelocytes are noted, a manual differential will be performed. Immature Gran Absolute 0.10(H) 0.00 - 0.04 x10(3)/mc L [facility] Blood specimen (specimen) 09/06/2017 4:31 AM EST 09/06/2017 5:04 AM EST Narrative Resulting Agency Comment Spec In Lab Christopher Dalla MD HEMATOLOGY ORDERABLE S [facility] [place] [address] * (ABNORMAL) Hemogram (09/06/2017 4:31 AM EST) White Blood Cell 6.6 4.0 - 9.5 x10(3)/mc L [facility] Red Blood Cell 2.72(L) 4.58 - 5.54 x10(6)/ L [facility] Hemoglobin 7.4(L) 13.7 - 16.5 gm/dL [facility] Comment: This result has been called to [place] FORMAN by Desean Pope on 09 06 2017 at 0515, and has been read back. Hematocrit 22.2(L) 40.5 - 48.5 % [facility] Mean Cell Volume 81.6(L) 82.9 - 93.1 fL [facility] Mean Cell Hemoglobin 27.2(L) 27.5 - 32.1 pg [facility] Mean Cell Hemoglobin Concentration 33.3 32.0 - 35.7 gm/dL [facility] Platelet 153 145 - 357 x10(3)/mc L [facility] RDW Standard Deviation 43.5 36.0 - 45.0 fL [facility] RDW coefficient of variation 14.9(H) 11.4 - 13.8 % [facility] Mean Platelet Volume 10.3 7.6 - 12.9 fL [facility] NRBC% auto 0.3 % [facility] NRBC Absolute 0.020(H) 0.000 - 0.000 x10(3)/mc L [facility] Blood specimen (specimen) 09/06/2017 4:31 AM EST 09/06/2017 5:04 AM EST Narrative Resulting Agency Comment Spec In Lab Christopher Dalal MD HEMATOLOGY ORDERABLE S Performing Organization Address [facility] Co de Phone Number [facility] [place] [address] * Phosphorus (09/05/2017 11:14 PM EST) Phosphorus 2.9 2.5 - 4.5 mg/dL [facility] Blood specimen (specimen) 09/05/2017 11:14 PM EST 09/05/2017 11:26 PM EST Narrative Resulting Agency Comment Spec In Lab Fran iGlliam MD CHEMISTRY ORDERABL ES Performing Organization Address [facility] Co de Phone Number [facility] [place] [address] * (ABNORMAL) Calcium (09/05/2017 11:14 PM EST) Calcium 7.6(L) 8.5 - 10.5 mg/dL [facility] Blood specimen (specimen) 09/05/2017 11:14 PM EST 09/05/2017 11:26 PM EST Narrative Resulting Agency Comment Spec In Lab Fran Gilliam MD CHEMISTRY ORDERABL ES Performing Organization Address [facility] Co de Phone Number [facility] [place] [address] * Sodium (09/05/2017 11:14 PM EST) Sodium 142 135 - 145 mmol/L [facility] Blood specimen (specimen) 09/05/2017 11:14 PM EST 09/05/2017 11:26 PM EST Narrative Resulting Agency Comment Spec In Lab Fran Gilliam MD CHEMISTRY ORDERABL ES Performing Organization Address [facility] Co de Phone Number [facility] [place] [address] * (ABNORMAL) Albumin Level (09/05/2017 11:14 PM EST) Albumin 2.3(L) 3.2 - 5.2 gm/dL [facility] Blood specimen (specimen) 09/05/2017 11:14 PM EST 09/05/2017 11:26 PM EST Narrative Resulting Agency Comment Spec In Lab Genevieve Page MD CHEMISTRY ORDERABLES Performing Organization Address [facility] Co de Phone Number [facility] [place] [address] * (ABNORMAL) Albumin Level (09/05/2017 7:08 PM EST) Albumin 2.4(L) 3.2 - 5.2 gm/dL [facility] Blood specimen (specimen) Venous Draw / Unknown 09/05/2017 7:08 PM EST 09/05/2017 7:18 PM EST Narrative Resulting Agency Comment Spec In Lab Genevieve Page MD CHEMISTRY ORDERABLES Performing Organization Address [facility] Co de Phone Number [facility] [place] [address] * (ABNORMAL) Phosphorus (09/05/2017 7:08 PM EST) Phosphorus 2.0(L) 2.5 - 4.5 mg/dL [facility] Comment:result rechecked- Blood specimen (specimen) 09/05/2017 7:08 PM EST 09/05/2017 7:12 PM EST Narrative Resulting Agency Comment Spec In Lab Fran Gilliam MD CHEMISTRY ORDERABL ES Performing Organization Address [facility]/ZIP Co de Phone Number [facility] [place] [address] * (ABNORMAL) Calcium (09/05/2017 7:08 PM EST) Calcium 7.4(L) 8.5 - 10.5 mg/dL [facility] Blood specimen (specimen) 09/05/2017 7:08 PM EST 09/05/2017 7:12 PM EST Narrative Resulting Agency Comment Spec In Lab Fran Gilliam MD CHEMISTRY ORDERABL ES Performing Organization Address [facility] Co de Phone Number [facility] [place] [address] * Sodium (09/05/2017 7:08 PM EST) Sodium 145 135 - 145 mmol/L [facility] Blood specimen (specimen) 09/05/2017 7:08 PM EST 09/05/2017 7:12 PM EST Narrative Resulting Agency Comment Spec In Lab Fran Gilliam MD CHEMISTRY ORDERABL ES Performing Organization Address [facility] Co de Phone Number [facility] [place] [address] * 1,25-dihydroxycholecalciferol (09/05/2017 4:54 PM EST) Vit D 1,25 Dihydroxy (NOVEMBER) 57 18 - 64 pg/mL [facility] Comment: ADDITIONAL INFORMATION This test was developed and its performance characteristics determined by [facility] in a manner consistent with CLIA requirements. This test has not been cleared or approved by the U.S. Food and Drug Administration. Test Performed by: [facility] - [address] [address] Blood specimen (specimen) 09/05/2017 4:54 PM EST 09/08/2017 2:05 PM EST Narrative Resulting Agency Comment Spec In Lab Fran Gilliam MD LAB SEND OUT ORDER LYNDSEY Performing Organization Address [facility] Co de Phone Number [facility] [place] [address] * (ABNORMAL) Electrolytes panel (09/05/2017 3:06 PM EST) Sodium 146(H) 135 - 145 mmol/L [facility] Potassium 3.9 3.5 - 5.0 mmol/L [facility] Comment: Please note: ??Patients with WBC >100,000 may have falsely elevated Potassium levels. ??For accurate Potassium quantification in these patients send serum separator tube (gold top) for subsequent determinations. ??Contact the Clinical Chemistry Laboratory if there are any questions. Chloride 114(H) 98 - 107 mmol/L [facility] Carbon Dioxide 24 22 - 31 mmol/L [facility] Anion Gap 8 5 - 15 mmol/L [facility] Blood specimen (specimen) 09/05/2017 3:06 PM EST 09/05/2017 3:16 PM EST Narrative Resulting Agency Comment Spec In Lab Fran Gilliam MD CHEMISTRY ORDERABL ES Performing Organization Address [facility] Co de Phone Number [facility] [place] [address] * PTH (09/05/2017 11:29 AM EST) Parathyroid Hormone 29 15 - 65 pg/mL [facility] Blood specimen (specimen) 09/05/2017 11:29 AM EST 09/05/2017 11:48 AM EST Narrative Resulting Agency Comment Spec In Lab Fran Gilliam MD CHEMISTRY ORDERABL ES Performing Organization Address [facility]/ZIP Co de Phone Number [facility] [place] [address] * Vitamin D, 25-Hydroxy (09/05/2017 11:29 AM EST) Vitamin D Total 25 OH 34 30 - 100 ng/mL [facility] [...] be considered to be insufficient or deficient. http://SeeWhy/nkf-guidelines http://SeeWhy/nejm-VitD The [employer] i[employer] Vitamin D Immunoassay detects both 25-OH Vitamin D2 and 25-OH Vitamin D3, but only a total Vitamin D concentration is reported. Blood specimen (specimen) 09/05/2017 11:29 AM EST 09/05/2017 1:31 PM EST Narrative Resulting Agency Comment Spec In Lab Fran Gilliam MD CHEMISTRY ORDERABL ES [facility] [place] [address] * (ABNORMAL) Electrolytes panel (09/05/2017 11:29 AM EST) Sodium 148(H) 135 - 145 mmol/L [facility] Potassium 4.1 3.5 - 5.0 mmol/L [facility] Comment: Please note: ??Patients with WBC >100,000 may have falsely elevated Potassium levels. ??For accurate Potassium quantification in these patients send serum separator tube (gold top) for subsequent determinations. ??Contact the Clinical Chemistry Laboratory if there are any questions. Chloride 113(H) 98 - 107 mmol/L [facility] Carbon Dioxide 24 22 - 31 mmol/L [facility] Anion Gap 11 5 - 15 mmol/L [facility] Blood specimen (specimen) 09/05/2017 11:29 AM EST 09/05/2017 11:48 AM EST Narrative Resulting Agency Comment Spec In Lab Juliet Guerrerorojelio SANTANA CHEMISTRY ORDERABLES Performing Organization Address [facility]/ZIP Co de Phone Number [facility] [place] [address] * (ABNORMAL) Phosphorus (09/05/2017 4:16 AM EST) [facility] Phosphorus 1.1(Critic al) 2.5 - 4.5 mg/dL [facility] Comment:Called by: MOISES, Read back by: ADRIANE FINLEY, Date/Time:09/05/17 05:43. Blood specimen (specimen) 09/05/2017 4:16 AM EST 09/05/2017 4:52 AM EST Narrative Resulting Agency Comment Spec In Lab Juliet Guerrerorojelio SANTANA CHEMISTRY ORDERABLES Performing Organization Address [facility]/ZIP Co de Phone Number [facility] [place] [address] * (ABNORMAL) Differential, Automated (09/05/2017 2:35 AM EST) [facility] Neutrophil % 84.1 % [facility] Neutrophil Absolute 7.20(H) 1.70 - 6.10 x10(3)/mc L [facility] Lymph % 5.0 % [facility] Lymphocytes Abs 0.4(L) 0.9 - 3.2 x10(3)/mc L [facility] Monocyte % 9.4 % [facility] Monocyte Abs 0.8 0.3 - 0.9 x10(3)/mc L [facility] Eos % 0.3 % [facility] Eosinophils Abs 0.0 0.0 - 0.4 x10(3)/mc L [facility] Basophil % 0.2 % [facility] Baso Absolute 0.0 0.0 - 0.1 x10(3)/mc L [facility] Immature Gran % 1.00 % [facility] Comment: Immature granulocytes(IG's)percentage and absolute count will include metamyelocytes, myelocytes, and promyelocytes. Blood smears from CBCs yielding IG's will be scanned manually for concordance. If this scan disagrees with the automated IG or if promyelocytes are noted, a manual differential will be performed. Immature Gran Absolute 0.09(H) 0.00 - 0.04 x10(3)/ L [facility] Blood specimen (specimen) 09/05/2017 2:35 AM EST 09/05/2017 2:42 AM EST Narrative Resulting Agency Comment Spec In Lab Christopher Dalal MD HEMATOLOGY ORDERABLE S Performing Organization Address City/State/[facility] Co de Phone Number [facility] [place] [address] * (ABNORMAL) Hemogram (09/05/2017 2:35 AM EST) White Blood Cell 8.6 4.0 - 9.5 x10(3)/[facility] Red Blood Cell 3.98(L) 4.58 - 5.54 x10(6)/[facility] Hemoglobin 10.9(L) 13.7 - 16.5 gm/dL [facility] Hematocrit 31.5(L) 40.5 - 48.5 % [facility] Mean Cell Volume 79.1(L) 82.9 - 93.1 fL [facility] Mean Cell Hemoglobin 27.4(L) 27.5 - 32.1 pg [facility] Mean Cell Hemoglobin Concentration 34.6 32.0 - 35.7 gm/dL [facility] Platelet 169 145 - 357 x10(3)/[facility]ATORY RDW Standard Deviation 41.2 36.0 - 45.0 fL [facility] RDW coefficient of variation 14.2(H) 11.4 - 13.8 % [facility] Mean Platelet Volume 10.0 7.6 - 12.9 fL [facility] NRBC% auto 0.0 % [facility] NRBC Absolute 0.000 0.000 - 0.000 x10(3)/mc L [facility] Blood specimen (specimen) 09/05/2017 2:35 AM EST 09/05/2017 2:42 AM EST Narrative Resulting Agency Comment Spec In Lab Christopher Dalal MD HEMATOLOGY ORDERABLE S [facility] [place] [address] * (ABNORMAL) Basic Metabolic Panel (non-fasting) (09/05/2017 2:35 AM EST) Glucose 203(H) 65 - 199 mg/dL [facility] Comment:Diabetes: >=200 mg/d L plus symptoms Blood Urea Nitrogen 8(L) 10 - 20 mg/dL [facility] Creatinine 0.85 0.80 - 1.50 mg/dL [facility] Sodium 148(H) 135 - 145 mmol/L [facility] Comment:result rechecked-imm Potassium 4.1 3.5 - 5.0 mmol/L [facility] Comment: Please note: ??Patients with WBC >100,000 may have falsely elevated Potassium levels. ??For accurate Potassium quantification in these patients send serum separator tube (gold top) for subsequent determinations. ??Contact the Clinical Chemistry Laboratory if there are any questions. Chloride 112(H) 98 - 107 mmol/L [facility] Comment:result rechecked-imm Carbon Dioxide 23 22 - 31 mmol/L [facility] Anion Gap 13 5 - 15 mmol/L [facility] Calcium 7.8(L) 8.5 - 10.5 mg/dL [facility] Est Glomerular Filtration Rate >60 >=60 [facility] Comment: The reported eGFR should be multiplied by 1.2 for patients. The MDRD is not an appropriate measure of renal function for patients with body mass extremes or in patients with acute kidney failure. http://RightsFlow.Stellarray/DHnkdep http://RightsFlow.Stellarray/DHMCnkf Blood specimen (specimen) 09/05/2017 2:35 AM EST 09/05/2017 2:42 AM EST Narrative Resulting Agency Comment Spec In Lab Fran Gilliam MD CHEMISTRY ORDERABL ES Performing Organization Address [facility] Co de Phone Number [facility] [place] [address] * Magnesium (09/05/2017 2:35 AM EST) Magnesium 0.80 0.69 - 1.07 mmol/L [facility] Blood specimen (specimen) 09/05/2017 2:35 AM EST 09/05/2017 2:42 AM EST Narrative Resulting Agency Comment Spec In Lab Juliet Medeiros APRN CHEMISTRY ORDERABLES Performing Organization Address [facility] Co de Phone Number [facility] [place] [address] * EKG 12 Lead (09/04/2017 10:30 PM EST) Ventricular rate 143 BPM MUSE SYSTEM Atrial Rate 143 BPM MUSE SYSTEM P-R Interval 130 ms MUSE SYSTEM QRS Duration 78 ms MUSE SYSTEM Q-T Interval 278 ms MUSE SYSTEM QTC Calculated (Bezet) 429 ms MUSE SYSTEM Calculated P [place] 34 degrees MUSE SYSTEM Calculated R [place] 48 degrees MUSE SYSTEM Calculated T [place] 45 degrees MUSE SYSTEM INTERPRETATION Sinus tachycardia Nonspecific ST abnormality Abnormal ECG No previous ECGs available Confirmed by MD Scottie, Sally ([id number]) on 09/05/2017 3:49:31 PM MUSE SYSTEM 09/04/2017 10:3 0 PM EST 09/05/2017 3:49 PM EST Juliet Medeiros APRN ECG ORDERABLES Performing Organization Address [facility]/ZIP Co de Phone Number MUSE SYSTEM * (ABNORMAL) Electrolytes panel (09/04/2017 7:23 PM EST) Pathologist [facility] Sodium 137 135 - 145 mmol/L [facility] Potassium 5.1(H) 3.5 - 5.0 mmol/L [facility] Comment: Please note: ??Patients with WBC >100,000 may have falsely elevated Potassium levels. ??For accurate Potassium quantification in these patients send serum separator tube (gold top) for subsequent determinations. ??Contact the Clinical Chemistry Laboratory if there are any questions. Chloride 102 98 - 107 mmol/L [facility] Carbon Dioxide 23 22 - 31 mmol/L [facility] Anion Gap 12 5 - 15 mmol/L [facility] Blood specimen (specimen) 09/04/2017 7:23 PM EST 09/04/2017 7:27 PM EST Narrative Resulting Agency Comment Spec In Lab Fran Gilliam MD CHEMISTRY ORDERABL ES Performing Organization Address City/[facility]/ZIP Co de Phone Number [facility] [place] [address] * POCT Glucose (09/04/2017 7:00 PM EST) [facility] Glucose, POC 132 65 - 199 mg/dL [facility] Comment: Supplemental ranges: <140 mg/dL before meals <180 mg/dL all other times of the day Blood specimen (specimen) 09/04/2017 7:00 PM EST 09/04/2017 7:00 PM EST Fran Gilliam MD POINT OF CARE TEST ORDERABLES [facility] [place] [address] * (ABNORMAL) Differential, Automated (09/04/2017 3:49 PM EST) [facility] Neutrophil % 86.3 % [facility] Neutrophil Absolute 7.08(H) 1.70 - 6.10 x10(3)/mc L [facility] Lymph % 5.2 % [facility] Lymphocytes Abs 0.4(L) 0.9 - 3.2 x10(3)/ L [facility] Monocyte % 6.2 % [facility] Monocyte Abs 0.5 0.3 - 0.9 x10(3)/ L [facility] Eos % 1.2 % [facility] Eosinophils Abs 0.1 0.0 - 0.4 x10(3)/[facility] Basophil % 0.1 % [facility] Baso Absolute 0.0 0.0 - 0.1 x10(3)/[facility] Immature Gran % 1.00 % [facility] Comment: Immature granulocytes(IG's)percentage and absolute count will include metamyelocytes, myelocytes, and promyelocytes. Blood smears from CBCs yielding IG's will be scanned manually for concordance. If this scan disagrees with the automated IG or if promyelocytes are noted, a manual differential will be performed. Immature Gran Absolute 0.08(H) 0.00 - 0.04 x10(3)/[facility] Blood specimen (specimen) 09/04/2017 3:49 PM EST 09/04/2017 3:59 PM EST Narrative Resulting Agency Comment Spec In Lab Dario Chavez MD HEMATOLOGY ORDERABLE S Performing Organization Address City/State/[facility] Co de Phone Number [facility] [place] [address] * (ABNORMAL) Hemogram (09/04/2017 3:49 PM EST) White Blood Cell 8.2 4.0 - 9.5 x10(3)/[facility] Red Blood Cell 4.05(L) 4.58 - 5.54 x10(6)/ L [facility] Hemoglobin 11.1(L) 13.7 - 16.5 gm/dL [facility] Hematocrit 33.0(L) 40.5 - 48.5 % [facility] Mean Cell Volume 81.5(L) 82.9 - 93.1 fL [facility] Mean Cell Hemoglobin 27.4(L) 27.5 - 32.1 pg [facility] Mean Cell Hemoglobin Concentration 33.6 32.0 - 35.7 gm/dL [facility] Platelet 118(L) 145 - 357 x10(3)/mc L [facility] RDW Standard Deviation 41.2 36.0 - 45.0 fL [facility] RDW coefficient of variation 14.0(H) 11.4 - 13.8 % [facility] Mean Platelet Volume 9.9 7.6 - 12.9 [facility] NRBC% auto 0.0 % [facility] NRBC Absolute 0.000 0.000 - 0.000 x10(3)/mc L [facility] Blood specimen (specimen) 09/04/2017 3:49 PM EST 09/04/2017 3:59 PM EST Narrative Resulting Agency Comment Spec In Lab Dario Chavez MD HEMATOLOGY ORDERABLE S [facility] [place] [address] * (ABNORMAL) Electrolytes panel (09/04/2017 3:49 PM EST) Sodium 129(L) 135 - 145 mmol/L [facility] Potassium 4.4 3.5 - 5.0 mmol/L [facility] Comment: Please note: ??Patients with WBC >100,000 may have falsely elevated Potassium levels. ??For accurate Potassium quantification in these patients send serum separator tube (gold top) for subsequent determinations. ??Contact the Clinical Chemistry Laboratory if there are any questions. Chloride 97(L) 98 - 107 mmol/L [facility] Carbon Dioxide 22 22 - 31 mmol/L [facility] Anion Gap 10 5 - 15 mmol/L [facility] Blood specimen (specimen) 09/04/2017 3:49 PM EST 09/04/2017 3:59 PM EST Narrative Resulting Agency Comment Spec In Lab Fran Gilliam MD CHEMISTRY ORDERABL ES Performing Organization Address [facility] Co de Phone Number [facility] [place] [address] * (ABNORMAL) Hemoglobin and Hematocrit, blood (09/04/2017 3:49 PM EST) Hemoglobin 11.0(L) 13.7 - 16.5 gm/dL [facility] Hematocrit 33.3(L) 40.5 - 48.5 % [facility] Blood specimen (specimen) 09/04/2017 3:49 PM EST 09/04/2017 3:59 PM EST Narrative Resulting Agency Comment Spec In Lab Fran Gilliam MD HEMATOLOGY ORDERAB LES Performing Organization Address [facility] Co de Phone Number [facility] [place] [address] * XR Pelvis Judet or In Out [...] left ischial and acetabular fracture with multiple ogehl-zyf-nyvot constructs. Tubing that could represent a surgical [...] described left ischial and acetabular fracture with jfxjzvrrxuszh-hyf-scvod constructs. Tubing that could represent a surgical [...] a radiologist interpretation. ?? Fran Gilliam MD [facility] FLUORO ORDERAB LES Performing Organization Address City/[facility]/ZIP Co de Phone Number [place], [place] * ABORH Recheck Status (09/04/2017 11:15 AM EST) ABORH Type Recheck Completed [facility] Blood specimen (specimen) 09/04/2017 11:15 AM EST 09/04/2017 11:28 AM EST Narrative Resulting Agency Comment Spec In Lab Amy Lance MD BLOOD BANK LAB ORDER LYNDSEY [facility] [place] [address] * Antibody screen (09/04/2017 11:15 AM EST) [facility] Ab Screen Interp Negative [facility] Expires at [id number] on: 09/07/2017 [facility] Blood specimen (specimen) 09/04/2017 11:15 AM EST 09/04/2017 11:28 AM EST Narrative Resulting Agency Comment Spec In Lab Amy Lance MD BLOOD BANK LAB ORDER LYNDSEY [facility] [place] [address] * ABO/Rh Typing (09/04/2017 11:15 AM EST) [facility] ABORH Type O Pos [facility] Blood specimen (specimen) 09/04/2017 11:15 AM EST 09/04/2017 11:28 AM EST Narrative Resulting Agency Comment Spec In Lab Amy Lance MD BLOOD BANK LAB ORDER LYNDSEY [facility] [place] [address] * (ABNORMAL) Differential, Automated (09/04/2017 11:15 AM EST) [facility] Neutrophil % 72.7 % [facility] Neutrophil Absolute 10.24(H) 1.70 - 6.10 x10(3)/mc L [facility] Lymph % 11.3 % [facility] Lymphocytes Abs 1.6 0.9 - 3.2 x10(3)/mc L [facility] Monocyte % 7.5 % [facility] Monocyte Abs 1.1(H) 0.3 - 0.9 x10(3)/mc L [facility] Eos % 7.5 % [facility] Eosinophils Abs 1.1(H) 0.0 - 0.4 x10(3)/[facility] Basophil % 0.3 % [facility] Baso Absolute 0.0 0.0 - 0.1 x10(3)/[facility] Immature Gran % 0.70 % [facility] Comment: Immature granulocytes(IG's)percentage and absolute count will include metamyelocytes, myelocytes, and promyelocytes. Blood smears from CBCs yielding IG's will be scanned manually for concordance. If this scan disagrees with the automated IG or if promyelocytes are noted, a manual differential will be performed. Immature Gran Absolute 0.10(H) 0.00 - 0.04 x10(3)/[facility] Blood specimen (specimen) 09/04/2017 11:15 AM EST 09/04/2017 11:28 AM EST Narrative Resulting Agency Comment Spec In Lab Amy Mandy Lance MD HEMATOLOGY ORDERABLE S [facility] [place] [id number] * (ABNORMAL) Hemogram (09/04/2017 11:15 AM EST) White Blood Cell 14.1(H) 4.0 - 9.5 x10(3)/[facility] Red Blood Cell 3.37(L) 4.58 - 5.54 x10(6)/[facility] Hemoglobin 9.3(L) 13.7 - 16.5 gm/dL [facility] Comment: This result has been called to SHEKHAR OLIVEIRA by Crista Hunter on 09 04 2017 at 1137, and has been read back. Hematocrit 26.7(L) 40.5 - 48.5 % [facility] Comment: This result has been called to SHEKHAR OLIVEIRA by Crista Hunter on 09 04 2017 at 1137, and has been read back. Mean Cell Volume 79.2(L) 82.9 - 93.1 fL [facility] Mean Cell Hemoglobin 27.6 27.5 - 32.1 pg [facility] Mean Cell Hemoglobin Concentration 34.8 32.0 - 35.7 gm/dL [facility] Platelet 193 145 - 357 x10(3)/mc L [facility] RDW Standard Deviation 41.5 36.0 - 45.0 fL [facility] RDW coefficient of variation 14.3(H) 11.4 - 13.8 % [facility] Mean Platelet Volume 10.0 7.6 - 12.9 fL [facility] NRBC% auto 0.0 % [facility] NRBC Absolute 0.000 0.000 - 0.000 x10(3)/mc L [facility] Blood specimen (specimen) 09/04/2017 11:15 AM EST 09/04/2017 11:28 AM EST Narrative Resulting Agency Comment Spec In Lab Amy Lance MD [place] [address] * Prepare RBC (09/04/2017 11:00 AM EST) Dispensed? Yes [facility] Blood specimen (specimen) 09/04/2017 11:00 AM EST 09/04/2017 10:58 AM EST Fran Gilliam MD BLOOD BANK PRODUCT ORDERABLES [facility] [place] [address] * (ABNORMAL) Differential, Automated (09/04/2017 3:58 AM EST) Neutrophil % 75.8 % [facility] Neutrophil Absolute 8.00(H) 1.70 - 6.10 x10(3)/mc L [facility] Lymph % 9.5 % [facility] Lymphocytes Abs 1.0 0.9 - 3.2 x10(3)/ L [facility] Monocyte % 7.7 % [facility] Monocyte Abs 0.8 0.3 - 0.9 x10(3)/[facility] Eos % 5.9 % [facility] Eosinophils Abs 0.6(H) 0.0 - 0.4 x10(3)/[facility] Basophil % 0.4 % [facility] Baso Absolute 0.0 0.0 - 0.1 x10(3)/[facility] Immature Gran % 0.70 % [facility] Comment: Immature granulocytes(IG's)percentage and absolute count will include metamyelocytes, myelocytes, and promyelocytes. Blood smears from CBCs yielding IG's will be scanned manually for concordance. If this scan disagrees with the automated IG or if promyelocytes are noted, a manual differential will be performed. Immature Gran Absolute 0.07(H) 0.00 - 0.04 x10(3)/[facility] Blood specimen (specimen) 09/04/2017 3:58 AM EST 09/04/2017 4:05 AM EST Narrative Resulting Agency Comment Spec In Lab Christopher Dalal MD HEMATOLOGY ORDERABLE S Performing Organization Address City/State/[facility] Co de Phone Number [facility] [place] [address] * (ABNORMAL) Hemogram (09/04/2017 3:58 AM EST) White Blood Cell 10.5(H) 4.0 - 9.5 x10(3)/[facility] Red Blood Cell 4.72 4.58 - 5.54 x10(6)/[facility] Hemoglobin 12.4(L) 13.7 - 16.5 gm/dL [facility] Hematocrit 37.2(L) 40.5 - 48.5 % [facility] Mean Cell Volume 78.8(L) 82.9 - 93.1 fL [facility] Mean Cell Hemoglobin 26.3(L) 27.5 - 32.1 pg [facility] Mean Cell Hemoglobin Concentration 33.3 32.0 - 35.7 gm/dL [facility] Platelet 142(L) 145 - 357 x10(3)/mc L [facility] RDW Standard Deviation 39.5 36.0 - 45.0 [facility] RDW coefficient of variation 13.8 11.4 - 13.8 % [facility] Mean Platelet Volume 9.9 7.6 - 12.9 [facility] NRBC% auto 0.0 % [facility] NRBC Absolute 0.000 0.000 - 0.000 x10(3)/mc L [facility] Blood specimen (specimen) 09/04/2017 3:58 AM EST 09/04/2017 4:05 AM EST Narrative Resulting Agency Comment Spec In Lab Christopher Dalal MD HEMATOLOGY ORDERABLE S [facility] [place] [address] * (ABNORMAL) Basic Metabolic Panel (non-fasting) (09/04/2017 3:58 AM EST) Glucose 118 65 - 199 mg/dL [facility] Comment:Diabetes: >=200 mg/d L plus symptoms Blood Urea Nitrogen 12 10 - 20 mg/dL [facility] Creatinine 0.73(L) 0.80 - 1.50 mg/dL [facility] Sodium 128(L) 135 - 145 mmol/L [facility] Potassium 4.1 3.5 - 5.0 mmol/L [facility] Comment: Please note: ??Patients with WBC >100,000 may have falsely elevated Potassium levels. ??For accurate Potassium quantification in these patients send serum separator tube (gold top) for subsequent determinations. ??Contact the Clinical Chemistry Laboratory if there are any questions. Chloride 95(L) 98 - 107 mmol/L [facility] Carbon Dioxide 22 22 - 31 mmol/L [facility] Anion Gap 11 5 - 15 mmol/L [facility] Calcium 8.0(L) 8.5 - 10.5 mg/dL [facility] Est Glomerular Filtration Rate >60 >=60 [facility] Comment: The reported eGFR should be multiplied by 1.2 for patients. The MDRD is not an appropriate measure of renal function for patients with body mass extremes or in patients with acute kidney failure. http://SeeWhy/DHnkdep http://SeeWhy/DHMCnkf Blood specimen (specimen) 09/04/2017 3:58 AM EST 09/04/2017 4:05 AM EST Narrative Resulting Agency Comment Spec In Lab Fran Gilliam MD CHEMISTRY ORDERABL ES [facility] [place] [address] * (ABNORMAL) Hepatic Function Panel (09/04/2017 3:58 AM EST) Protein, Total 5.9(L) 6.1 - 8.0 gm/dL [facility] Albumin 3.3 3.2 - 5.2 gm/dL [facility] Aspartate Aminotransferase 23 0 - 39 unit/L [facility] Alanine Aminotransferase 31 0 - 55 unit/L [facility] Alkaline Phosphatase 75 40 - 120 unit/L [facility] Bilirubin, Total 0.5 0.2 - 1.3 mg/dL [facility] Bilirubin, Direct 0.1 0.0 - 0.3 mg/dL [facility] Blood specimen (specimen) 09/04/2017 3:58 AM EST 09/04/2017 4:05 AM EST Narrative Resulting Agency Comment Spec In Lab Fran Gilliam MD CHEMISTRY ORDERABL ES Performing Organization Address [facility]/ZIP Co de Phone Number [facility] [place] [address] * (ABNORMAL) Testosterone, total and free (09/04/2017 3:58 AM EST) Testo Total 84(L) 250 - 1100 ng/dL [facility] Comment: For more information on this test, go to http://education.[employer]/faq/ TotalTestosteroneLCMSMS This test was developed and its analytical performance characteristics have been determined by [facility] [place], [place]. It has not been cleared or approved by the U.S. Food and Drug Administration. This assay has been validated pursuant to the CLIA regulations and is used for clinical purposes. Testo Free (NOVEMBER) 11.4(L) 35.0 - 155.0 pg/mL [facility] Comment: This test was developed and its analytical performance characteristics have been determined by [facility] [place], [place]. It has not been cleared or approved by the U.S. Food and Drug Administration. This assay has been validated pursuant to the CLIA regulations and is used for clinical purposes. Test Performed by [facility], [facility] [place], [address] [place] [address] Hilton Mckeon M.D., Ph.D., Director of Laboratories , CLIA [id number] Blood specimen (specimen) 09/04/2017 3:58 AM EST 09/04/2017 9:36 AM EST Narrative Resulting Agency Comment Spec In Lab Christopher Dalal MD LAB SEND OUT ORDERAB LES Performing Organization Address [facility]/ZIP Co de Phone Number [facility] [place] [address] * SCAN DOC: IMPLANTABLE DEVICES (09/04/2017 12:00 AM EST) Narrative 09/04/2017 12:00 AM EST Ordered by an unspecified provider. Scanning Provider MEDIA MGR SCAN EXT O RDR/RSLT * SCAN DOC: MANAGER OF IT (09/04/2017 12:00 AM EST) Anatomical Region Laterality Modality Other Narrative 09/04/2017 12:00 AM EST Ordered by an unspecified provider. Scanning Provider MEDIA MGR SCAN EXT O RDR/RSLT * (ABNORMAL) Urinalysis with reflex Culture (09/03/2017 9:04 PM EST) Glucose, Urine Dipstick Negative Negative mg/dL [facility] Protein, Urine Dipstick Negative Negative mg/dL [facility] Bilirubin, Urine Dipstick Negative Negative mg/dL [facility] Comment: Clinical correlation required for positive Urine Bilirubin results as false positive may occur with some drugs and drug related products. If a false positive is suspected a serum total bilirubin should be considered if clinically indicated. Urobilinogen, Urine Dipstick >=4.0(A) Normal mg/dL [facility] pH, Urn (dipstick) 7.0 5.0 - 8.0 [facility] Blood, Urine Dipstick Negative Negative mg/dL [facility] Ketone, Urine Dipstick Negative Negative mg/dL [facility] Nitrite, Urine Dipstick Negative Negative [facility] Leukocytes, Urine Dipstick Negative Negative mcL [facility] Appearance, Urine Dipstick Clear Clear [facility] Specific [place] Urine Automated 1.020 1.002 - 1.030 [facility] Color, Urine Dipstick Yellow Yellow [facility] Reflex to Culture No [facility] Urine specimen obtained via indwelling urinary catheter (specimen) 09/03/2017 9:04 PM EST 09/03/2017 9:19 PM EST Narrative Resulting Agency Comment Spec In Lab Fran Gilliam MD URINE ORDERABLES [facility] [place] [address] * Rapid Influenza A/B PCR (09/03/2017 7:59 PM EST) Influenza A PCR Not Detected Not Detected [facility] Influenza B PCR Not Detected Not Detected [facility] Resp PCR Source PROCESS MACHINE 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 Co de Phone Number [facility] [place] [address] * Blood culture (09/03/2017 6:47 PM EST) Pathologist [facility] Blood Culture No growth at 5 days. [facility] Blood specimen (specimen) 09/03/2017 6:47 PM EST 09/03/2017 7:08 PM EST Comment:R HAND Narrative Resulting Agency Comment Spec In Lab Fran Gilliam MD MICROBIOLOGY - BLO OD ORDERABLES Performing Organization Address [facility] Co de Phone Number [facility] [place] [address] * (ABNORMAL) Lactate, whole blood, send to lab (Leb/CGP) (09/03/2017 5:56 PM EST) Pathologist [facility] Lactate WB 3.7(H) 0.5 - 2.2 mmol/L [facility] Blood specimen (specimen) 09/03/2017 5:56 PM EST 09/03/2017 6:03 PM EST Narrative Resulting Agency Comment Spec In Lab Fran Gilliam MD CHEMISTRY ORDERABL ES Performing Organization Address City/[facility] Co de Phone Number [facility] [place] [address] * Blood culture (09/03/2017 5:56 PM EST) Blood Culture No growth at 5 days. [facility] Blood specimen (specimen) 09/03/2017 5:56 PM EST 09/03/2017 6:28 PM EST Narrative Resulting Agency Comment Spec In Lab Fran Gilliam MD MICROBIOLOGY - BLO OD ORDERABLES [facility] [place] [address] * CT Pelvis MSK (Bones Joints Muscles)WO [...] Lvl (NOVEMBER) 3.7(L) 10 - 40 mcg/mL [facility] Comment: ADDITIONAL INFORMATION This test was developed and its performance characteristics determined by [facility] in a manner consistent with CLIA requirements. This test has not been cleared or approved by the U.S. Food and Drug Administration. Test Performed by: [facility] [address] [place] [address] Blood specimen (specimen) 09/03/2017 10:20 AM EST 09/03/2017 12:26 PM EST Narrative Resulting Agency Comment Spec In Lab Fran Gilliam MD LAB SEND OUT ORDER LYNDSEY [facility] [place] [address] * XR Chest PA or AP 1 [...] Free T4 1.45 0.93 - 1.70 ng/dL [facility] Blood specimen (specimen) Venous Draw / Unknown 09/03/2017 6:22 AM EST 09/03/2017 6:35 AM EST Narrative Resulting Agency Comment Spec In Lab Fran Gilliam MD CHEMISTRY ORDERABL ES Performing Organization Address [facility]/ZIP [place] [address] * (ABNORMAL) TSH (09/03/2017 6:22 AM EST) Thyroid Stimulating Hormone 0.01(L) 0.27 - 4.20 mlU/ML [facility] Blood specimen (specimen) Venous Draw / Unknown 09/03/2017 6:22 AM EST 09/03/2017 6:35 AM EST Narrative Resulting Agency Comment Spec In Lab Fran Gilliam MD CHEMISTRY ORDERABL ES [facility] [place] [address] * Basic Metabolic Panel (non-fasting) (09/03/2017 6:22 AM EST) Glucose 95 65 - 199 mg/dL [facility] Comment:Diabetes: >=200 mg/d L plus symptoms Blood Urea Nitrogen 10 10 - 20 mg/dL [facility] Creatinine 0.99 0.80 - 1.50 mg/dL [facility] Sodium 136 135 - 145 mmol/L [facility] Potassium 4.2 3.5 - 5.0 mmol/L [facility] Comment: Please note: ??Patients with WBC >100,000 may have falsely elevated Potassium levels. ??For accurate Potassium quantification in these patients send serum separator tube (gold top) for subsequent determinations. ??Contact the Clinical Chemistry Laboratory if there are any questions. Chloride 99 98 - 107 mmol/L [facility] Carbon Dioxide 26 22 - 31 mmol/L [facility] Anion Gap 11 5 - 15 mmol/L [facility] Calcium 8.8 8.5 - 10.5 mg/dL [facility] Est Glomerular Filtration Rate >60 >=60 [facility] Comment: The reported eGFR should be multiplied by 1.2 for patients. The MDRD is not an appropriate measure of renal function for patients with body mass extremes or in patients with acute kidney failure. http://RightsFlow.Stellarray/DHnkdep http://RightsFlow.Stellarray/DHMCnkf Blood specimen (specimen) 09/03/2017 6:22 AM EST 09/03/2017 6:29 AM EST Narrative Resulting Agency Comment Spec In Lab Christopher Dalal MD CHEMISTRY ORDERABLES [facility] [place] [address] * (ABNORMAL) Basic Metabolic Panel (non-fasting) (09/03/2017 1:54 AM EST) Glucose 90 65 - 199 mg/dL [facility] Comment:Diabetes: >=200 mg/d L plus symptoms Blood Urea Nitrogen 10 10 - 20 mg/dL [facility] Creatinine 1.01 0.80 - 1.50 mg/dL [facility] Sodium 139 135 - 145 mmol/L [facility] Potassium 3.7 3.5 - 5.0 mmol/L [facility] Comment: Please note: ??Patients with WBC >100,000 may have falsely elevated Potassium levels. ??For accurate Potassium quantification in these patients send serum separator tube (gold top) for subsequent determinations. ??Contact the Clinical Chemistry Laboratory if there are any questions. Chloride 102 98 - 107 mmol/L [facility] Carbon Dioxide 25 22 - 31 mmol/L [facility] Anion Gap 12 5 - 15 mmol/L [facility] Calcium 8.1(L) 8.5 - 10.5 mg/dL [facility] Est Glomerular Filtration Rate >60 >=60 [facility] Comment: The reported eGFR should be multiplied by 1.2 for patients. The MDRD is not an appropriate measure of renal function for patients with body mass extremes or in patients with acute kidney failure. [email or web address] Blood specimen (specimen) 09/03/2017 1:54 AM EST 09/03/2017 2:02 AM EST Narrative Resulting Agency Comment Spec In Lab Christopher Dalal MD CHEMISTRY ORDERABLES [facility] [place] [address] * ABORH Recheck Status (09/03/2017 12:54 AM EST) [facility] Recheck Order Order Placed [facility] ABORH Type Recheck Complete [facility] Blood specimen (specimen) 09/03/2017 12:54 AM EST 09/03/2017 12:54 AM EST Narrative Resulting Agency Comment Spec In Lab Christopher Dalal MD BLOOD BANK LAB ORDER LYNDSEY Performing Organization Address City/[facility]/ZIP Co de Phone Number [facility] [place] [address] * (ABNORMAL) Differential, Automated (09/03/2017 12:54 AM EST) Neutrophil % 72.4 % [facility] Neutrophil Absolute 6.59(H) 1.70 - 6.10 x10(3)/mc L [facility] Lymph % 11.7 % [facility] Lymphocytes Abs 1.1 0.9 - 3.2 x10(3)/ L [facility] Monocyte % 8.9 % [facility] Monocyte Abs 0.8 0.3 - 0.9 x10(3)/ L [facility] Eos % 5.3 % [facility] Eosinophils Abs 0.5(H) 0.0 - 0.4 x10(3)/ L [facility] Basophil % 0.6 % [facility] Baso Absolute 0.0 0.0 - 0.1 x10(3)/ L [facility] Immature Gran % 1.10 % [facility] Comment: Immature granulocytes(IG's)percentage and absolute count will include metamyelocytes, myelocytes, and promyelocytes. Blood smears from CBCs yielding IG's will be scanned manually for concordance. If this scan disagrees with the automated IG or if promyelocytes are noted, a manual differential will be performed. Immature Gran Absolute 0.10(H) 0.00 - 0.04 x10(3)/ L [facility] Blood specimen (specimen) 09/03/2017 12:54 AM EST 09/03/2017 12:58 AM EST Narrative Resulting Agency Comment Spec In Lab Christopher Dalal MD HEMATOLOGY ORDERABLE S Performing Organization Address City/[facility]/ZIP Co de Phone Number [facility] [place] [address] * (ABNORMAL) Hemogram (09/03/2017 12:54 AM EST) [facility] White Blood Cell 9.1 4.0 - 9.5 x10(3)/ L [facility] Red Blood Cell 5.52 4.58 - 5.54 x10(6)/ L [facility] Hemoglobin 14.8 13.7 - 16.5 gm/dL [facility] Hematocrit 43.4 40.5 - 48.5 % [facility] Mean Cell Volume 78.6(L) 82.9 - 93.1 fL [facility] Mean Cell Hemoglobin 26.8(L) 27.5 - 32.1 pg [facility] Mean Cell Hemoglobin Concentration 34.1 32.0 - 35.7 gm/dL [facility] Platelet 156 145 - 357 x10(3)/ L [facility] RDW Standard Deviation 41.1 36.0 - 45.0 [facility] RDW coefficient of variation 14.8(H) 11.4 - 13.8 % [facility] Mean Platelet Volume 11.6 7.6 - 12.9 [facility] NRBC% auto 0.0 % [facility] NRBC Absolute 0.000 0.000 - 0.000 x10(3)/[facility] Blood specimen (specimen) 09/03/2017 12:54 AM EST 09/03/2017 12:58 AM EST Narrative Resulting Agency Comment Spec In Lab Christopher Dalal MD HEMATOLOGY ORDERABLE S [facility] [place] [address] * Antibody screen (09/03/2017 12:54 AM EST) [facility] Ab Screen Interp Negative [facility] Expires at [id number] on: 09/06/2017 [facility] Blood specimen (specimen) 09/03/2017 12:54 AM EST 09/03/2017 12:54 AM EST Narrative Resulting Agency Comment Spec In Lab Christopher Dalal MD BLOOD BANK LAB ORDER LYNDSEY Performing Organization Address City/[facility]/ZIP Co de Phone Number [facility] [place] [address] * ABO/Rh Typing (09/03/2017 12:54 AM EST) ABORH Type O Pos [facility] Blood specimen (specimen) 09/03/2017 12:54 AM EST 09/03/2017 12:54 AM EST Narrative Resulting Agency Comment Spec In Lab Christopher Dalal MD BLOOD BANK LAB ORDER LYNDSEY Performing Organization Address [facility] Co de Phone Number [facility] [place] [address] * APTT (09/03/2017 12:54 AM EST) Partial Thromboplastin Time 26 25 - 35 sec [facility] Comment: The recommended therapeutic range for full dose, unfractionated heparin at [facility] is 80 ? 114 seconds. The use of the anti-Xa (heparin) level rather than the PTT is recommended for monitoring anticoagulation intensity in critically ill patients receiving unfractionated heparin by continuous IV infusion. Blood specimen (specimen) 09/03/2017 12:54 AM EST 09/03/2017 12:58 AM EST Narrative Resulting Agency Comment Spec In Lab Christopher Dalal MD HEMATOLOGY ORDERABLE S Performing Organization Address [facility] Co de Phone Number [facility] [place] [address] * Prothrombin Time (09/03/2017 12:54 AM EST) Prothrombin Time 13.6 11.8 - 14.0 sec [facility] International Normalization Ratio 1.1 0.9 - 1.1 [facility] Comment: An INR <2.0 indicates [...] Lab Christopher Dalal MD HEMATOLOGY ORDERABLE S [facility] [place] [address] * Basic Metabolic Panel (non-fasting) (09/03/2017 12:54 AM EST) Glucose 84 65 - 199 mg/dL [facility] Comment:Diabetes: >=200 mg/d L plus symptoms Blood Urea Nitrogen 11 10 - 20 mg/dL [facility] Creatinine 0.97 0.80 - 1.50 mg/dL [facility] Sodium Not Perf 135 - 145 mmol/L [facility] Comment: Specimen hemolyzed. Called by: [facility], Read back by: Diana Reese, Date/Time:09/03/17 01:32. Potassium Not Perf 3.5 - 5.0 mmol/L [facility] Comment: Specimen hemolyzed. Called by: [facility], Read back by: Diana Reese, Date/Time:09/03/17 01:32. Please note: ??Patients with WBC >100,000 may have falsely elevated Potassium levels. ??For accurate Potassium quantification in these patients send serum separator tube (gold top) for subsequent determinations. ??Contact the Clinical Chemistry Laboratory if there are any questions. Chloride Not Perf 98 - 107 mmol/L [facility] Comment: Specimen hemolyzed. Called by: [facility], Read back by: Diana Reese, Date/Time:09/03/17 01:32. Carbon Dioxide Not Perf 22 - 31 mmol/L [facility] Comment: Specimen hemolyzed. Called by: [facility], Read back by: Diana Reese, Date/Time:09/03/17 01:32. Anion Gap Not Perf 5 - 15 mmol/L [facility] Comment: Specimen hemolyzed. Called by: [facility], Read back by: Diana Reese, Date/Time:09/03/17 01:32. Calcium Not Perf 8.5 - 10.5 [facility] Comment: Specimen hemolyzed. Called by: [facility], Read back by: Diana Reese, Date/Time:09/03/17 01:32. Est Glomerular Filtration Rate >60 >=60 [facility] Comment: The reported eGFR should be multiplied by 1.2 for patients. The MDRD is not an appropriate measure of renal function for patients with body mass extremes or in patients with acute kidney failure. http://[email or web address] [email or web address] Blood specimen (specimen) 09/03/2017 12:54 AM EST 09/03/2017 12:58 AM EST Narrative Resulting Agency Comment Spec In Lab Christopher Dalal MD CHEMISTRY ORDERABLES [facility] [place] [address] * XR Knee 1-2 Views Left (Generic) [...] Traction device is present. Beverley Bojorquez MD [facility] DX ORDERABLES * XR Pelvis Judet or [...] appreciable change in alignment. Beverley Bojorquez MD [facility] DX ORDERABLES * XR Knee 1-2 Views [...] HEATHER) 802 (Given - Provider: Mady Recio, HEATHRE) testosterone (ANDROGEL) 1 % (25 mg/2.5 g) [...] Routine documented in this encounter Care Teams Pharmacy Services Director Relationship Specialty Start Date End Date Lc Venegas PA [address] [place] [address] PCP - General General Internal Medicine 09/03/17 documented as of this encounter
--- OUTSIDE RECORDS SUMMARY | 2024-08-06 01:17 | XMS_ITS | Encounter Summary ---
Author Organization [facility] Address [facility] [address] Care Team Providers Care Curtain Mender Name Role Phone Corin Skinner MD Primary Care Provider [phone] Encounter Details Date Type Department Care Team (Latest Contact Info) Description 09/02/2017 12:15 AM EST - 09/02/2017 12:19 AM EST Hospital Encounter Radiology Library at [facility] [place] [address] Neo Gar MD Discharge Disposition: Home Social [...] MD IMG FILM LIBRARY OR DERABLES [place], [place] documented in this encounter Visit Diagnoses Not on filedocumented in this encounter Care Teams Curtain Mender Relationship Specialty Start Date End Date Corin Skinner MD PCP - General 05/29/10 09/02/17 documented as of this encounter
--- OUTSIDE RECORDS SUMMARY | 2024-08-06 01:17 | XMS_ITS | Encounter Summary ---
Author Organization [facility] [place] [address] Care Team Providers Care Nurse Emergency Name Role Phone Lc Venegas Primary Care Provider [phone] Encounter Details Date Type Department Care Team (Late st Contact Info) Description 09/03/2017 Orders [place] [address] Tobias Sotomayor MD [facility] [place] [address] Social History Tobacco Use Types Packs/Day Years [...] filedocumented in this encounter Care Teams Nurse Emergency Relationship Specialty Start Date End Date Lc Venegas PA [address] [place] [address] PCP - General General Internal Medicine 09/03/17 documented as of this encounter
--- OUTSIDE RECORDS SUMMARY | 2024-08-06 01:18 | XMS_ITS | Encounter Summary ---
Author Organization [facility] Address [facility] [place] [address] Care Team Providers Care Peoplesoft Programmer Name Role Phone Corin Skinner MD Primary Care Provider [phone] Encounter Details Date Type Department Care Team (Latest Contact Info) Description 09/02/2017 12:05 AM EST - 09/02/2017 12:09 AM [facility] Hospital Encounter Radiology Library at [facility] [place] [address] Neo Gar MD Discharge Disposition: Home Social [...] MD IMG FILM LIBRARY OR DERABLES [place], [place] documented in this encounter Visit Diagnoses Not on filedocumented in this encounter Care Teams Peoplesoft Programmer Relationship Specialty Start Date End Date Corin Skinner MD PCP - General 05/29/10 09/02/17 documented as of this encounter
--- OUTSIDE RECORDS SUMMARY | 2024-08-06 01:18 | XMS_ITS | Encounter Summary ---
Author Organization [facility] Address [facility] [place] [address] Care Team Providers Care Fermentologist Name Role Phone Corin Skinner MD Primary Care Provider Encounter Details Date Type Department Care Team (Latest Contact Info) Description 09/02/2017 - 09/02/2017 12:04 AM [facility] Hospital Encounter Radiology Library [facility] [place] [place] [address] Neo Gar MD Discharge Disposition: Home Social [...] MD IMG FILM LIBRARY OR DERABLES [place], [place] documented in this encounter Visit Diagnoses Not on filedocumented in this encounter Care Teams Fermentologist Relationship Specialty Start Date End Date Corin Skinner MD PCP - General 05/29/10 09/02/17 documented as of this encounter
[2024-08-06 13:12] LABS: Sodium 145 mmol/L (136-145)
== END 2024-08-06 00:56 | disposition home or self-care (01) ==
PROVIDERS: PCP Student in an Organized Health Care Education/Training Program; Visit Provider Internal Medicine Endocrinology, Diabetes & Metabolism
DX: E23.2 Diabetes insipidus (principal); D23.0 Other benign neoplasm of skin of lip
CPT/HCPCS: 36415; 84295

== ENCOUNTER 2024-09-03 00:48 | Outpatient (CLI) | payer MEDICAID, SELFPAY ==
[2024-09-03 17:39] LABS: Sodium 135 mmol/L (136-145)
== END 2024-09-03 00:49 | disposition home or self-care (01) ==
PROVIDERS: PCP Student in an Organized Health Care Education/Training Program; Visit Provider Internal Medicine Endocrinology, Diabetes & Metabolism
DX: E27.49 Other adrenocortical insufficiency (principal)
CPT/HCPCS: 36415; 84295

== ENCOUNTER 2024-09-22 03:58 | Outpatient (CLI) | payer MEDICAID, SELFPAY ==
[2024-09-22 17:30] LABS: HCT 39.5 % (40.0-50.0); MCH 24.1 pg (27.0-33.0); MCHC 32.9 % (32.0-36.0); MCV 73 fL (80-95); MPV 9.6 fL (8.0-11.0); Platelet Count 184 10^3/uL (130-400); RBC 5.39 10^6/uL (4.36-5.78); RDW 15.9 % (11.8-14.1); RDW-SD 41.7 fL
[2024-09-22 17:58] LABS: ALT 33 U/L (16-63); AST 12 U/L (15-37); Albumin 3.5 g/dL (3.4-5.0); Alkaline Phosphatase 103 U/L (46-116); Anion Gap 8.1 mmol/L (3-11); BUN 21 mg/dL (7-18); Bilirubin, Total 0.3 mg/dL (0.2-1.0); CO2 27.9 mmol/L (21.0-32.0); CREATININE 0.8 mg/dL (0.70-1.30); Calcium 8.8 mg/dL (8.5-10.1); Chloride 97 mmol/L (98-107); Glucose 68 mg/dL (74-106); Potassium 4.1 mmol/L (3.5-5.1); Sodium 133 mmol/L (136-145); Total Protein 7.1 g/dL (6.4-8.2)
[2024-09-22 18:18] LABS: VALPROIC ACID 78.5 ug/mL
== END 2024-09-22 03:59 | disposition home or self-care (01) ==
PROVIDERS: PCP Student in an Organized Health Care Education/Training Program; Visit Provider Psychiatry & Neurology Psychiatry
DX: E23.2 Diabetes insipidus (principal); E23.0 Hypopituitarism; Z79.899 Other long term (current) drug therapy
CPT/HCPCS: 36415; 80053; 85027; 80164

== ENCOUNTER 2024-10-07 03:34 | Outpatient (CLI) | payer MEDICAID, SELFPAY ==
[2024-10-07 12:33] LABS: Sodium 137 mmol/L (136-145)
== END 2024-10-07 03:35 | disposition home or self-care (01) ==
PROVIDERS: PCP Student in an Organized Health Care Education/Training Program; Visit Provider Internal Medicine Endocrinology, Diabetes & Metabolism
DX: E23.2 Diabetes insipidus (principal); E23.0 Hypopituitarism
CPT/HCPCS: 36415; 84295

== ENCOUNTER 2024-10-16 15:20 | Outpatient (CLI) | payer MEDICAID, SELFPAY ==
--- NOTE | 2024-10-16 | DI.RAD_ITS ---
Exam(s) XR FINGER LT LITTLE EXAM: XR FINGER LT LITTLE CLINICAL HISTORY: Pain in finger of left hand. TECHNIQUE: 2D digital imaging was performed. Three views. COMPARISON: None. FINDINGS: BONES: No acute fracture is present. No bony destructive lesion is seen. JOINTS: No dislocation present. SOFT TISSUE: Mild soft tissue swelling. No foreign body. IMPRESSION: No evidence of acute fracture, dislocation, or subluxation. DATA REPOSITORY: RADIATION DOSE DELIVERED:
--- NOTE | 2024-10-16 17:12 | DI.VRAD_ITS ---
PROCEDURE INFORMATION: Exam: XR Left Finger(s) Exam date and time: 10/16/2024 4:19 PM Age: 34 years old Clinical indication: Injury or trauma; Fall; Other: Pain and bruising; Injury date: 10/15/2024; Injury details: Patient care clinician states they fell last night, has bruising and pain over dip joint of left little finger TECHNIQUE: Imaging protocol: Radiologic exam of the left fingers. Views: Minimum 2 views. COMPARISON: No relevant prior studies available. FINDINGS: Bones/joints: Normal. Soft tissues: Soft tissue swelling noted at the PIP joint 5th digit.. IMPRESSION: No evidence for fracture. Dictated and Authenticated by: Mercedez Rodriguez MD. Orderin Kadi Franco MD
== END 2024-10-16 15:40 ==
LOC: DI 15:21
PROVIDERS: PCP Student in an Organized Health Care Education/Training Program; Visit Provider Physician Assistant Medical
DX: M79.645 Pain in left finger(s) (principal)
CPT/HCPCS: 73140

== ENCOUNTER 2024-11-04 15:49 | Outpatient (REF) | payer MEDICAID, SELFPAY ==
[2024-11-04 17:54] LABS: Bilirubin Negative (Negative); Blood Negative (Negative); Clarity Clear (Clear); Glucose Negative (Negative); Ketones Trace mg/dL (Negative); Leukocyte Esterase Negative (Negative); Nitrite Negative (Negative); Specific Gravity 1.025 (1.005-1.025); Urobilinogen 0.2 mg/dL (Up to 0.2)
== END 2024-11-04 15:50 | disposition home or self-care (01) ==
LOC: NCHCN 15:49
PROVIDERS: PCP Student in an Organized Health Care Education/Training Program; Visit Provider Student in an Organized Health Care Education/Training Program
DX: R39.89 Other symptoms and signs involving the genitourinary system (principal)
CPT/HCPCS: 81003

== ENCOUNTER 2024-11-05 03:01 | Outpatient (CLI) | payer MEDICAID, SELFPAY ==
[2024-11-05 13:07] LABS: Sodium 134 mmol/L (136-145)
== END 2024-11-05 03:02 | disposition home or self-care (01) ==
LOC: LBO 03:01
PROVIDERS: PCP Student in an Organized Health Care Education/Training Program; Visit Provider Internal Medicine Endocrinology, Diabetes & Metabolism
DX: E27.49 Other adrenocortical insufficiency (principal); E23.2 Diabetes insipidus
CPT/HCPCS: 36415; 84295

== ENCOUNTER 2024-11-17 03:32 | Outpatient (CLI) | payer MEDICAID, SELFPAY ==
[2024-11-17 13:55] LABS: Sodium 144 mmol/L (136-145)
== END 2024-11-17 03:33 | disposition home or self-care (01) ==
LOC: LBO 03:33
PROVIDERS: PCP Student in an Organized Health Care Education/Training Program; Visit Provider Internal Medicine Endocrinology, Diabetes & Metabolism
DX: E27.49 Other adrenocortical insufficiency (principal); E23.2 Diabetes insipidus
CPT/HCPCS: 36415; 84295

== ENCOUNTER 2024-12-17 01:39 | Outpatient (CLI) | payer MEDICAID, SELFPAY ==
[2024-12-17 14:03] LABS: Sodium 130 mmol/L (136-145)
== END 2024-12-17 01:40 | disposition home or self-care (01) ==
LOC: LBO 01:39
PROVIDERS: PCP Student in an Organized Health Care Education/Training Program; Visit Provider Internal Medicine Endocrinology, Diabetes & Metabolism
DX: E27.49 Other adrenocortical insufficiency (principal); E23.2 Diabetes insipidus
CPT/HCPCS: 36415; 84295

== ENCOUNTER 2024-12-21 03:32 | Outpatient (CLI) | payer MEDICAID, SELFPAY ==
[2024-12-21 16:41] LABS: Sodium 133 mmol/L (136-145)
== END 2024-12-21 03:33 | disposition home or self-care (01) ==
LOC: LBO 03:33
PROVIDERS: PCP Student in an Organized Health Care Education/Training Program; Visit Provider Internal Medicine Endocrinology, Diabetes & Metabolism
DX: E27.49 Other adrenocortical insufficiency (principal); E23.2 Diabetes insipidus
CPT/HCPCS: 36415; 84295

== ENCOUNTER 2025-01-04 04:20 | Outpatient (CLI) | payer MEDICAID, SELFPAY ==
[2025-01-04 13:48] LABS: Sodium 136 mmol/L (136-145)
== END 2025-01-04 04:21 | disposition home or self-care (01) ==
PROVIDERS: PCP Student in an Organized Health Care Education/Training Program; Visit Provider Internal Medicine Endocrinology, Diabetes & Metabolism
DX: E27.49 Other adrenocortical insufficiency (principal); E23.2 Diabetes insipidus
CPT/HCPCS: 36415; 84295

== ENCOUNTER 2025-01-07 16:37 | Emergency (ER) | payer MEDICAID, SELFPAY ==
[2025-01-07] VITALS (32 sets, daily range): BP systolic 96–115; BP diastolic 51–68; PULSE 43–82; RESP 9–18; TEMP 33.6; O2SAT 95–100
--- NOTE | 2025-01-07 17:38 | DI.CT_ITS ---
Exam(s) CT HEAD WO EXAM: CT HEAD WO CLINICAL HISTORY: seizure. TECHNIQUE: Imaging Protocol: Axial computed tomography images with coronal and sagittal reformatted images were created and reviewed COMPARISON: CT CT HEAD WO from 06/13/2024 FINDINGS: Again noted is evidence of right fronto temporal craniotomy and a right of center aneurysm clip just posterior to the right-side of the dorsum sella. There is encephalomalacia in the right frontal lobe again noted and ex vacuo dilatation of the anterior horn of the right lateral ventricle, unchanged. Also again noted is a round abnormal hypodensity in the right middle cranial fossa measuring approximately 2.7 cm AP by 2.8 cm wide x 2.7 cm craniocaudal, similar to previous. There is no evidence of intracranial hemorrhage. Lacunar infarcts are again noted in both cerebellar hemispheres as well as in the anterior aspect of both thalami, right larger than left, similar to previous. There is also enlargement of the 3rd ventricle again noted, unchanged. There is also an enlarged CSF space in the posterior right side of the posterior fossa which is unchanged and may be a retro cerebellar cyst. IMPRESSION: Multiple findings as described above but without significant change compared to the prior CT scan of June 2024. In addition to the aneurysm clip and encephalomalacia there is again noted an abnormal masslike hypodensity in the right middle cranial fossa which appears relatively stable in size when compared to June 2024. If clinically indicated further study with contrast infused brain MRI can be performed for added sensitivity and specificity. Report called by myself to ER provider 01/07/2025 at 6:17 p.m. RADIATION DOSE DELIVERED: 870.31mGy.cm Total DLP DATA REPOSITORY: All CT scans at this facility are submitted to the National Radiology Data Registry (NRDR) Dose Index Registry (DIR) with the [employer] (ACR). RADIATION OPTIMIZATION: All CT scans at this facility use at least one of these dose optimization techniques: automated exposure control; mA and/or kV adjustment per patient size (includes targeted exams where dose is matched to clinical indication); or iterative reconstruction.
[2025-01-07] MEDS: Normal Saline 1,000 ML 1000 ML IV (18:15)
[2025-01-07 18:17] LABS: Abs Immature Grans 0.02 10^3/uL (0.0-0.06); HCT 37.4 % (40.0-50.0); HGB 12.8 g/dL (13.5-17.5); Immature Grans % 0.6 %; MCH 26.0 pg (27.0-33.0); MCHC 34.2 % (32.0-36.0); MCV 76 fL (80-95); MPV 8.7 fL (8.0-11.0); Platelet Count 156 10^3/uL (130-400); RBC 4.93 10^6/uL (4.36-5.78); RDW 15.6 % (11.8-14.1); RDW-SD 43.0 fL; WBC 3.41 10^3/uL (4.4-10.8)
[2025-01-07 18:41] LABS: ALT 49 U/L (16-63); AST 21 U/L (15-37); Albumin 3.5 g/dL (3.4-5.0); Alkaline Phosphatase 112 U/L (46-116); Anion Gap 8.4 mmol/L (3-11); BUN 11 mg/dL (7-18); Bilirubin, Total 0.3 mg/dL (0.2-1.0); CO2 28.6 mmol/L (21.0-32.0); Calcium 8.3 mg/dL (8.5-10.1); Chloride 93 mmol/L (98-107); Estimated GFR 129.91 (mL/min/1.73m2); Glucose 101 mg/dL (74-106); Potassium 4.0 mmol/L (3.5-5.1); Sodium 130 mmol/L (136-145); Total Protein 7.0 g/dL (6.4-8.2)
[2025-01-07 18:44] LABS: TSH (W/Ref FT4) < 0.01 uIU/mL (0.36-3.74)
--- NOTE | 2025-01-07 20:26 | W.ED.GENAD ---
Discharge Plan Disposition Patient Disposition: Home Condition: Stable Discharge Details Clinical Impression: Seizure Primary Care Provider: Jimbo More ED Provider: Gabe Jacob Home Meds and New Rx's Prescriptions: No Action acetylcysteine 600 mg capsule 600 mg PO BID cetirizine 10 mg tablet 20 mg PO DAILY PRN levothyroxine 200 mcg capsule 200 mcg PO DAILY magnesium gluconate 27 mg magnesium (500 mg) tablet 27 mg PO DAILY melatonin-lemon balm leaf extr 10-1 mg tablet 1 tab PO HS quetiapine 150 mg tablet extended release 24 hr 100 mg PO DAILY cholecalciferol (vitamin D3) 25 mcg (1,000 unit) capsule 25 mcg PO DAILY polyethylene glycol 3350 17 gram powder in packet 17 gm PO DAILY PRN bisacodyl 10 mg suppository 10 mg FL DAILY PRN aspirin 81 mg tablet 81 mg PO DAILY omeprazole 40 mg capsule,delayed release(DR/EC) 40 mg PO DAILY zonisamide 100 mg capsule 300 mg PO QPM Qty: 270 3RF desmopressin 0.1 mg tablet 0.15 mg PO QNOON atorvastatin 40 mg Tablet 40 mg PO DAILY quetiapine [Seroquel] 200 mg Tablet 200 mg PO PRN PRN desmopressin 0.1 mg Tablet 0.1 mg PO QAM hydrocortisone 10 mg tablet 10 mg PO QNOON Qty: 0 0RF Rx Instructions: Resume on 03/30/19 hydrocortisone [Cortef] 10 MG tablet 20 mg PO QAM Qty: 0 0RF Rx Instructions: resume on 03/30/19 clonazepam 2 mg Tablet 2 mg PO Q6H PRN PRN montelukast 10 mg Tablet 10 mg PO DAILY Discharge Instructions Instructions: Seizures Additional Instructions: At this time your sodium is only minimally low, your Depakote level is therapeutic., And your CT scan of your head shows no new changes. Please continue to take your antiepileptic medications. If you notice any worsening of your symptoms, or any new symptoms such as vomiting, diarrhea, fever, chills, shortness of breath, chest pain, numbness, weakness, or fainting , please return immediately to the emergency department for reevaluation. Please follow up with your primary care provider as soon as possible for reassessment and reevaluation. As always, it was a pleasure participating in your medical care today. Referrals: Jimbo More [Primary Care Provider, Medicine] HPI General Date/Time Provider Initiated Documentation: 01/07/25 16:44. HPI Narrative: 34-year-old male with a past medical history of diabetes insipidus, blindness, developmental delay, traumatic brain injury, seizures on Depakote and zonisamide, thyroid dysfunction, who presents today for evaluation of seizure. EMS reports that this afternoon the patient had a mild tonic-clonic seizure, which is similar to ones that he has had in the past. When EMS arrived there was still evidence of an active seizure, and he was given 10 mg of IM Versed, shortly thereafter symptomatology resolved, however he then became postictal and somewhat somnolent fatigue. He was brought into the ER for further assessment. Patient has no complaints at this time, he responds to sternal rub. Patient's guardian, and caregivers from his [facility] are at bedside. Related Data Home Medications ?Medication ?Instructions ?Recorded ?Confirmed atorvastatin 40 mg tablet 40 mg PO DAILY 05/08/18 08/05/24 desmopressin 0.1 mg tablet 0.1 mg PO QAM 09/09/18 08/05/24 quetiapine 200 mg tablet (Seroquel) 200 mg PO PRN PRN 09/09/18 08/05/24 hydrocortisone 10 mg tablet 10 mg PO QNOON #0 tabs 03/28/19 08/05/24 hydrocortisone 10 mg tablet 20 mg (2 x 10 mg) PO QAM #0 tabs 03/28/19 08/05/24 (Cortef) aspirin 81 mg tablet 81 mg PO DAILY 08/23/19 08/05/24 bisacodyl 10 mg rectal suppository 10 mg FL DAILY PRN 08/23/19 08/05/24 omeprazole 40 mg capsule,delayed 40 mg PO DAILY 08/23/19 08/05/24 release polyethylene glycol 3350 17 gram 17 gm PO DAILY PRN 08/23/19 08/05/24 oral powder packet desmopressin 0.1 mg tablet 0.15 mg PO QNOON 10/06/19 08/05/24 clonazepam 2 mg tablet 2 mg PO Q6H PRN PRN 11/17/20 08/05/24 montelukast 10 mg tablet 10 mg PO DAILY 11/17/20 08/05/24 acetylcysteine 600 mg capsule 600 mg PO BID 02/19/24 08/05/24 cetirizine 10 mg tablet 20 mg PO DAILY PRN 02/19/24 08/05/24 levothyroxine 200 mcg capsule 200 mcg PO DAILY 02/19/24 08/05/24 magnesium gluconate 27 mg 27 mg PO DAILY 02/19/24 08/05/24 magnesium (500 mg) tablet melatonin 10 mg-lemon balm leaf 1 tab PO HS 02/19/24 08/05/24 extract 1 mg tablet cholecalciferol (vitamin D3) 25 25 mcg PO DAILY 08/03/24 08/05/24 mcg (1,000 unit) capsule quetiapine 150 mg tablet,extended 100 mg PO DAILY 08/03/24 08/05/24 release 24 hr zonisamide 100 mg capsule 300 mg (3 x 100 mg) PO QPM #270 12/07/24 caps Previous Rx's ?Medication ?Instructions ?Recorded hydrocortisone 10 mg tablet 10 mg PO QNOON #0 tabs 03/28/19 hydrocortisone 10 mg tablet 20 mg (2 x 10 mg) PO QAM #0 tabs 03/28/19 (Cortef) zonisamide 100 mg capsule 300 mg (3 x 100 mg) PO QPM #270 12/07/24 caps Allergies Allergy/AdvReac Type Severity Reaction Status Date / Time gemfibrozil (From Lopid) AdvReac Unknown Other (See Unverified 08/03/24 12:59 Comment) General Stated Complaint: Seizure KWASI: 2 Exam Narrative Exam Narrative: 1.Const: Well-nourished, Well-developed, appearing stated age 2.Eyes: PERRL, no conjunctival injection, and symmetrical lids. 3.ENT: Atraumatic external nose and ears. Moist MM. Neck: Symmetric, trachea midline, No thyromegaly. No nuchal rigidity or neck stiffness. 4.CVS: +S1/S2, Peripheral pulses 2+ and equal in all extremities. Brisk capillary refill in all extremities. 5.RESP: Unlabored respiratory effort. Clear to auscultation bilaterally. No wheezes rales or rhonchi 6.GI: Soft, Nontender/Nondistended, No hepatosplenomegaly. No guarding or rebound. 7.MSK: Normocephalic/Atraumatic, Extremities w/o deformity or ttp No cyanosis or clubbing, Normal movement of all extremities. 8.Skin: Warm, Dry. No rashes or lesions. 9.Neuro: enrober II-XII grossly intact. Patient responds to sternal rub, patient will open his eyes, and groan and move around. Patient appears postictal. Course Vital Signs Vital signs: Vital Signs Temperature 33.6 C L 01/07/25 16:43 Pulse 76 01/07/25 16:43 Respiratory Rate 18 01/07/25 16:43 Blood Pressure 111/55 L 01/07/25 16:43 Pulse Oximetry 96 01/07/25 16:43 Temperature 33.6 C L 01/07/25 16:43 Temperature Source Tympanic 01/07/25 16:43 Pulse 44 L 01/07/25 20:20 Pulse 45 L 01/07/25 20:20 Respiratory Rate 10 L 01/07/25 20:20 Respiratory Depth Shallow 01/07/25 17:30 Respiratory Pattern Bradypnea 01/07/25 17:30 Blood Pressure 99/63 L 01/07/25 20:15 Blood Pressure Mean 74 01/07/25 20:15 Pulse Oximetry 100 01/07/25 20:20 Respiratory End-tidal CO2 42 01/07/25 17:20 Oxygen Delivery Method Room Air 01/07/25 16:43 Oxygen Flow Rate 0 01/07/25 16:43 End Tidal Co2 48 01/07/25 16:43 Lab/Test Results Lab/Test Results: Laboratory Tests Range/Units 01/07/25 01/07/25 17:15 18:12 WBC Cancelled 3.41 L RBC Cancelled 4.93 Hgb Cancelled 12.8 L Hct Cancelled 37.4 L MCV Cancelled 76 L MCH Cancelled 26.0 L MCHC Cancelled 34.2 RDW Cancelled 15.6 H Plt Count Cancelled 156 MPV Cancelled 8.7 Immature Gran % Cancelled 0.6 Neutrophils % Cancelled 61.8 Band Neutrophils % Cancelled Lymphocytes % Cancelled 29.6 Atypical Lymphs % Cancelled Monocytes % Cancelled 5.6 Eosinophils % Cancelled 2.1 Basophils % Cancelled 0.3 Metamyelocytes % Cancelled Myelocytes % Cancelled Promyelocytes % Cancelled Other Cells % Cancelled Nucleated RBC % Cancelled 0.0 Absolute Neutrophils Cancelled 2.11 Absolute Lymphocytes Cancelled 1.01 L Absolute Monocytes Cancelled 0.19 Absolute Eosinophils Cancelled 0.07 Absolute Basophils Cancelled 0.01 RBC Morphology Cancelled Polychromasia Cancelled Hypochromasia Cancelled Poikilocytosis Cancelled Basophilic Stippling Cancelled Anisocytosis Cancelled Microcytosis Cancelled Macrocytosis Cancelled Spherocytes Cancelled Tear Drop Cells Cancelled Ovalocytes Cancelled Stomatocytes Cancelled [place] Bodies Cancelled Lisbeth Cells/Echinocytes Cancelled Acanthocytes (Spur) Cancelled Schistocytes Cancelled Sodium Cancelled 130 L Potassium Cancelled 4.0 Chloride Cancelled 93 L Carbon Dioxide Cancelled 28.6 Anion Gap Cancelled 8.4 BUN Cancelled 11 Creatinine Cancelled 0.6 L Est GFR (CKD-EPI 2020) Cancelled 129.91 Glucose Cancelled 101 Calcium Cancelled 8.3 L Total Bilirubin Cancelled 0.3 AST Cancelled 21 ALT Cancelled 49 Alkaline Phosphatase Cancelled 112 Total Protein Cancelled 7.0 Albumin Cancelled 3.5 TSH Cancelled < 0.01 L Free T4 (0.76-1.46) ng/dL 1.45 Valproic Acid ( - 150) ug/mL 79.2 Medical Decision Making 34-year-old male with a past medical history of diabetes insipidus, blindness, developmental delay, traumatic brain injury, seizures on Depakote and zonisamide, thyroid dysfunction, who presents today for evaluation of seizure. EMS reports that this afternoon the patient had a mild tonic-clonic seizure, which is similar to ones that he has had in the past. When EMS arrived there was still evidence of an active seizure, and he was given 10 mg of IM Versed, shortly thereafter symptomatology resolved, however he then became postictal and somewhat somnolent fatigue. He was brought into the ER for further assessment. Patient has no complaints at this time, he responds to sternal rub. Patient's guardian, and caregivers from his [facility] are at bedside. Physical exam demonstrates an a postictal appearing male, he responds to sternal rub, he localizes to pain. When an IV was attempted to be placed patient notably retracted and was fighting it. Family and guardian state that patient often stays postictal for some time after seizures. I imagine this is also being complicated by his Versed. We will evaluate for electrolyte pathologies, brain pathologies, will monitor closely and reassess. He had no trauma to suggest acute brain bleed. He has been taking his medications as prescribed otherwise. 8:53 PM Laboratory workup has returned, diminished white count, but no thrombocytopenia. Sodium is slightly low at 130 and he was given a liter of normal saline, this level of hyponatremia would not be the cause of his seizure. Creatinine normal. Thyroid function demonstrates low TSH but normal free T4, Depakote level is therapeutic. CT scan shows multiple chronic unchanged abnormalities, as well as a stable hypodensity in the right middle cranial fossa. Patient was subsequently observed for the next 4 hours, and remained notably stable. Patient remained quite fatigued, after long discussion with family they state that usually after seizures he has a prolonged fatigue state, and with his intellectual baseline he gets extremely tired at night in general. Add to this that he received 10 of Versed, and the patient remains quite fatigued. He does not show evidence of an acute deficit. Repeat exam continues to demonstrate localization to any painful stimuli, and responsiveness to sternal rub. I had a long discussion with the patient's guardians, caregiver, and [facility] supervisors. We discussed prolonged observation throughout the night here, will transition home to sleep in his normal bed. At this time family has elected to transition the patient back to his facility for continued rest there. Because of the patient's intellectual baseline, continued fatigue, and normal difficulty with transport, we have requested EMS transport back. Patient remains slightly combative when trying to wake him up, which is attributed to his TBI and developmental delay, also demonstrates an additional need for EMS transport. I have extensively reviewed the treatment plan and discharge instructions with the patient and their family. I have addressed all patient concerns at this time. The patient and family was made aware of what symptoms to monitor for that would warrant a return to the emergency department. Discussed the plan with the patient and family, they demonstrate verbal understanding and agreement with our assessment and plan at this time. The documentation in this chart was dictated using Pulse 8 dictation software. Please excuse any dictation errors. FINDINGS: Again noted is evidence of right fronto temporal craniotomy and a right of center aneurysm clip just posterior to the right-side of the dorsum sella. There is encephalomalacia in the right frontal lobe again noted and ex vacuo dilatation of the anterior horn of the right lateral ventricle, unchanged. Also again noted is a round abnormal hypodensity in the right middle cranial fossa measuring approximately 2.7 cm AP by 2.8 cm wide x 2.7 cm craniocaudal, similar to previous. There is no evidence of intracranial hemorrhage. Lacunar infarcts are again noted in both cerebellar hemispheres as well as in the anterior aspect of both thalami, right larger than left, similar to previous. There is also enlargement of the 3rd ventricle again noted, unchanged. There is also an enlarged CSF space in the posterior right side of the posterior fossa which is unchanged and may be a retro cerebellar cyst. IMPRESSION: Multiple findings as described above but without significant change compared to the prior CT scan of June 2024. In addition to the aneurysm clip and encephalomalacia there is again noted an abnormal masslike hypodensity in the right middle cranial fossa which appears relatively stable in size when compared to June 2024. PFSH All Active Problems (Updated 01/07/25 @ 20:29 by Gabe Jacob DO) Seizure (Acute) Schwannoma of cranial nerve (Acute) Picking own skin (Acute) Abrasion (Acute) Abscess (Acute ~07/19/24) Right side upper thigh (? 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) Constipation (Chronic) Leg cramps (Chronic) Insomnia (Chronic) GERD (gastroesophageal reflux disease) (Chronic) Seizures (Chronic) TBI (traumatic brain injury) (Chronic) Medical History Chronic excoriation Furuncle of left axilla Hx of benign neoplasm of 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 osteoporosis Contracture of joint Pruritic disorder Steatosis of liver Gastritis Optic atrophy Hemiplegia Speech and language disorder Trichotillomania Restlessness and agitation Anemia, iron deficiency Obesity Hypo-osmolality and hyponatremia Diabetes Hypopituitarism Hypothyroidism History of pica 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 Cortical blindness Mood disorder Osteoporosis Hypertriglyceridemia Urinary incontinence H/O secondary hypogonadism Hemiparesis, left History of craniopharyngioma Poor dentition Hypocalcemia Elevated liver enzymes Urinary retention Hx of fracture of pelvis 2017 s/s seizure CVA (cerebral vascular accident) post-surgical Surgical History H/O brain surgery right craniotomy for craniopharyngioma Family History Mother Renal failure syndrome Social History Smoking/Tobacco Use Status: Never Smoking risk assessment performed?: Yes Alcohol Intake: never Drug use: Never Substance use type: does not use Household members: caregiver Housing: assisted living facility current occupation: Disabled In current or past relationships, have you been: other Do you feel safe at home: Yes Do you feel safe in your relationship?: Yes Additional Social history: unable to assess, postictal
== END 2025-01-07 21:24 | disposition home or self-care (01) ==
PROVIDERS: Emergency Provider Student in an Organized Health Care Education/Training Program; PCP Student in an Organized Health Care Education/Training Program
DX: R56.9 Unspecified convulsions (principal); Z87.820 Personal history of traumatic brain injury
CPT/HCPCS: 99284 ×2; 36415; 80053; 96360; 70450; 80164; 84439; 84443; 85025

== ENCOUNTER 2025-01-11 13:29 | Emergency (ER) | payer MEDICAID, SELFPAY ==
[2025-01-11 13:44] VITALS: BP 100/66; PULSE 52; RESP 16; TEMP 33.3; O2SAT 98
--- NOTE | 2025-01-11 14:00 | DI.RAD_ITS ---
Exam(s) XR CHEST 2V PA LATERAL EXAM: XR CHEST 2V PA LATERAL CLINICAL HISTORY: breakthrough seizure, developmentally delayed. TECHNIQUE: 2D digital imaging was performed. COMPARISON: CR,XR XR CHEST 2V PA LATERAL from 08/19/2019 FINDINGS: 2 views: Heart size is normal. The mediastinum is not widened. Lungs are clear. No infiltrates nor pleural effusions. IMPRESSION: No acute pulmonary findings. DATA REPOSITORY: RADIATION DOSE DELIVERED:
--- NOTE | 2025-01-11 14:13 | W.ED.GENAD ---
Discharge Plan Disposition Patient Disposition: Home Condition: Stable Discharge Details Clinical Impression: Hypotension Primary Care Provider: Jimbo More ED Provider: Thuy Alexander Home Meds and New Rx's Prescriptions: New hydrocortisone [Cortef] 20 mg tablet 20 mg PO DIRECTED Qty: 8 0RF Rx Instructions: Take 2 tablets (40 mg) in the morning, one tablet (20 mg) in the afternoon and one tablet (20 mg) at night for a total of two days. No Action acetylcysteine 600 mg capsule 600 mg PO BID cetirizine 10 mg tablet 20 mg PO DAILY PRN levothyroxine 200 mcg capsule 200 mcg PO DAILY magnesium gluconate 27 mg magnesium (500 mg) tablet 27 mg PO DAILY melatonin-lemon balm leaf extr 10-1 mg tablet 1 tab PO HS quetiapine 150 mg tablet extended release 24 hr 100 mg PO DAILY cholecalciferol (vitamin D3) 25 mcg (1,000 unit) capsule 25 mcg PO DAILY polyethylene glycol 3350 17 gram powder in packet 17 gm PO DAILY PRN bisacodyl 10 mg suppository 10 mg [place] DAILY PRN aspirin 81 mg tablet 81 mg PO DAILY omeprazole 40 mg capsule,delayed release(DR/EC) 40 mg PO DAILY zonisamide 100 mg capsule 300 mg PO QPM Qty: 270 3RF desmopressin 0.1 mg tablet 0.15 mg PO QNOON atorvastatin 40 mg Tablet 40 mg PO DAILY quetiapine [Seroquel] 200 mg Tablet 200 mg PO PRN PRN desmopressin 0.1 mg Tablet 0.1 mg PO QAM hydrocortisone 10 mg tablet 10 mg PO QNOON Qty: 0 0RF Rx Instructions: Resume on 03/30/19 hydrocortisone [Cortef] 10 MG tablet 20 mg PO QAM Qty: 0 0RF Rx Instructions: resume on 03/30/19 clonazepam 2 mg Tablet 2 mg PO Q6H PRN PRN montelukast 10 mg Tablet 10 mg PO DAILY Discharge Instructions Additional Instructions: As discussed your brothers frame carver spindle, Dr. Zaidi recommended doubling up on his steroid dose for the next 48 hours. A prescription of this is sent to the pharmacy. This should be given in addition to his own prescribed steroids. For further orders I would recommend following up with his frame carver spindle and in the meantime if your brother does get worse or develop any new or concerning symptoms please bring him back to the emergency department immediately for reevaluation. HPI General Date/Time Provider Initiated Documentation: 01/11/25 13:55. HPI Narrative: The patient is a 34-year-old male with a history of seizure disorder, developmental delay, panhypopituitarism who comes the emergency department for altered mental status, low blood pressure. History is obtained from the patient and caregiver at the sn[facility] where he resides. Reports that the patient was evaluated here in this emergency department a few days ago for seizure and had been discharged home. Reports that they had follow-up appointment earlier today and at the clinic he was found to have low blood pressure with systolic in the 80s and was there was an off which is unusual for the patient. Reports the patient has been taking all of his medication at the snf as prescribed. Reports there has been no fall, trauma or injury. Reports he has not been vomiting and has not had any changes in bowel habits. Patient denies any headache. Denies abdominal pain. Denies feeling nauseous. Related Data Home Medications ?Medication ?Instructions ?Recorded ?Confirmed atorvastatin 40 mg tablet 40 mg PO DAILY 05/08/18 08/05/24 desmopressin 0.1 mg tablet 0.1 mg PO QAM 09/09/18 01/11/25 quetiapine 200 mg tablet (Seroquel) 200 mg PO PRN PRN 09/09/18 01/11/25 hydrocortisone 10 mg tablet 10 mg PO QNOON #0 tabs 03/28/19 01/11/25 hydrocortisone 10 mg tablet 20 mg (2 x 10 mg) PO QAM #0 tabs 03/28/19 01/11/25 (Cortef) aspirin 81 mg tablet 81 mg PO DAILY 08/23/19 08/05/24 bisacodyl 10 mg rectal suppository 10 mg OH DAILY PRN 08/23/19 01/11/25 Held on 01/11/25. Instructions: Pt Stopped/Never Started omeprazole 40 mg capsule,delayed 40 mg PO DAILY 08/23/19 01/11/25 release polyethylene glycol 3350 17 gram 17 gm PO DAILY PRN 08/23/19 01/11/25 oral powder packet Held on 01/11/25. Instructions: Pt Stopped/Never Started desmopressin 0.1 mg tablet 0.15 mg PO QNOON 10/06/19 01/11/25 clonazepam 2 mg tablet 2 mg PO Q6H PRN PRN 11/17/20 01/11/25 montelukast 10 mg tablet 10 mg PO DAILY 11/17/20 01/11/25 acetylcysteine 600 mg capsule 600 mg PO BID 02/19/24 08/05/24 cetirizine 10 mg tablet 20 mg PO DAILY PRN 02/19/24 01/11/25 levothyroxine 200 mcg capsule 200 mcg PO DAILY 02/19/24 01/11/25 magnesium gluconate 27 mg 27 mg PO DAILY 02/19/24 01/11/25 magnesium (500 mg) tablet melatonin 10 mg-lemon balm leaf 1 tab PO HS 02/19/24 01/11/25 extract 1 mg tablet cholecalciferol (vitamin D3) 25 25 mcg PO DAILY 08/03/24 01/11/25 mcg (1,000 unit) capsule quetiapine 150 mg tablet,extended 100 mg PO DAILY 08/03/24 01/11/25 release 24 hr Held on 01/11/25. Instructions: Pt Stopped/Never Started zonisamide 100 mg capsule 300 mg (3 x 100 mg) PO QPM #270 12/07/24 01/11/25 caps hydrocortisone 20 mg tablet 20 mg PO DIRECTED #8 tabs 01/11/25 (Cortef) Previous Rx's ?Medication ?Instructions ?Recorded hydrocortisone 10 mg tablet 10 mg PO QNOON #0 tabs 03/28/19 hydrocortisone 10 mg tablet 20 mg (2 x 10 mg) PO QAM #0 tabs 03/28/19 (Cortef) zonisamide 100 mg capsule 300 mg (3 x 100 mg) PO QPM #270 12/07/24 caps hydrocortisone 20 mg tablet 20 mg PO DIRECTED #8 tabs 01/11/25 (Cortef) Allergies Allergy/AdvReac Type Severity Reaction Status Date / Time gemfibrozil (From Lopid) AdvReac Unknown Other (See Unverified 01/11/25 13:52 Comment) General Stated Complaint: [facility]Medical KWASI: 2 Review of Systems Narrative: Review of systems are negative except as mentioned. Exam Narrative Exam Narrative: General appearance: The patient is alert, has no immediate need for airway protection and no signs of toxicity. HEENT: Oral mucosal membranes are moist. No tonsillar swelling, erythema or exudates noted. Patient is legally blind. Neck: Supple, non-tender. Respiratory: There are no retractions. Lungs are clear to auscultation. Cardiovascular: Patient is bradycardic but regular. Radial pulses are intact and equal. Gastrointestinal: The abdomen is soft and nondistended with normal bowel sounds. Nontender to palpation throughout. Neurological: The patient is alert, awake and oriented. Musculoskeletal strength is intact and equal to bilateral upper and lower extremities. Sensation is intact and equal to bilateral upper and lower extremities. Speech is baseline for the patient per caregiver. No facial asymmetry is appreciated. Cranial nerves II to XII motor function are intact and equal. No pronator drift noted. NIH stroke scale score is 0 at 1405. No truncal ataxia is noted. Skin: Cool to touch and dry. Back: No CVA tenderness is noted to palpation bilaterally. Extremities: No lower extremity edema or calf tenderness. Course Vital Signs Vital signs: Vital Signs Temperature 33.3 C L 01/11/25 13:44 Pulse 52 L 01/11/25 13:44 Respiratory Rate 16 01/11/25 13:44 Blood Pressure 100/66 01/11/25 13:44 Pulse Oximetry 98 01/11/25 13:44 Temperature 33.3 C L 01/11/25 13:44 Pulse 52 L 01/11/25 13:44 Respiratory Rate 16 01/11/25 13:44 Blood Pressure 100/66 01/11/25 13:44 Blood Pressure Position Sitting 01/11/25 13:44 Pulse Oximetry 98 01/11/25 13:44 Oxygen Delivery Method Room Air 01/11/25 13:44 Oxygen Flow Rate 0 01/11/25 13:44 Pain Level 0 01/11/25 13:44 Lab/Test Results Lab/Test Results: 01/11/25 14:10 Blood Blood Culture - Pending 01/11/25 14:10 Blood Blood Culture - Pending Medical Decision Making I reviewed the patient's recent emergency department visit note through [email or web address]. The patient was evaluated here 4 days ago for seizure. Patient had CT head which was benign. Blood work was nondiagnostic. Urine was negative for infectious process. The patient was hypothermic upon arrival. Doing a septic workup. I will hold off on imaging study of his head since this was just done a few days ago. The patient's blood work is back and it is unremarkable. Chest x-ray shows no acute finding. The patient took a while to give a urine specimen but this is finally resulted and this is negative for infectious process. I did speak with the patient's frame carver spindle, Dr. Zaidi. He recommended checking T4 and there was a concern about whether or not the patient received stress dose of steroids after he had a seizure and after speaking with the sister this was not ordered. Stress dose steroid was also not ordered on his medication list after seizure. For this reason Dr. Zaidi recommends doubling up on his steroids for next 48 hours. Recommends 40 mg in the morning, 20 mg in the afternoon and 20 mg at night with the 20 mg dose to take now in addition to his own existing steroid regimen. A prescription for this regimen for 48 hours has been sent to the patient's pharmacy in the meantime. This has been communicated with the patient's sister who is in the emergency department now. For further orders should this recur she will follow-up with Dr. Zaidi in the meantime the patient is to be discharged shortly. His vital signs have improved. He is eating and drinking without any issues. I told the sister however to bring him back to the emergency department with any worsening symptoms or any other concerns otherwise follow-up with her frame carver spindle. Imaging Data Radiologic Study: Imaging: X-Ray (chest) Radiologist's impression: No acute pulmonary findings. [facility] All Active Problems (Updated 01/11/25 @ 18:41 by Thuy Alexander DO) Hypotension (Acute) Seizure (Acute) Schwannoma of cranial nerve (Acute) Picking own skin (Acute) Abrasion (Acute) Abscess (Acute ~07/19/24) Right side upper thigh (? 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) Constipation (Chronic) Leg cramps (Chronic) Insomnia (Chronic) GERD (gastroesophageal reflux disease) (Chronic) Seizures (Chronic) TBI (traumatic brain injury) (Chronic) Medical History Chronic excoriation Furuncle of left axilla Hx of benign neoplasm of 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 osteoporosis Contracture of joint Pruritic disorder Steatosis of liver Gastritis Optic atrophy Hemiplegia Speech and language disorder Trichotillomania Restlessness and agitation Anemia, iron deficiency Obesity Hypo-osmolality and hyponatremia Diabetes Hypopituitarism Hypothyroidism History of pica 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 Cortical blindness Mood disorder Osteoporosis Hypertriglyceridemia Urinary incontinence H/O secondary hypogonadism Hemiparesis, left History of craniopharyngioma Poor dentition Hypocalcemia Elevated liver enzymes Urinary retention Hx of fracture of pelvis 2017 s/s seizure CVA (cerebral vascular accident) post-surgical Surgical History H/O brain surgery right craniotomy for craniopharyngioma Family History Mother Renal failure syndrome Social History Smoking/Tobacco Use Status: Never Smoking risk assessment performed?: Yes Alcohol Intake: never Drug use: Never Substance use type: does not use Household members: caregiver Housing: assisted living facility current occupation: Disabled In current or past relationships, have you been: other Do you feel safe at home: Yes Do you feel safe in your relationship?: Yes Additional Social history: unable to assess, postictal
[2025-01-11 14:56] LABS: Abs Immature Grans 0.02 10^3/uL (0.0-0.06); HCT 38.7 % (40.0-50.0); HGB 13.3 g/dL (13.5-17.5); Immature Grans % 0.4 %; MCH 26.2 pg (27.0-33.0); MCHC 34.4 % (32.0-36.0); MCV 76 fL (80-95); MPV 8.8 fL (8.0-11.0); Platelet Count 126 10^3/uL (130-400); RBC 5.08 10^6/uL (4.36-5.78); RDW 15.6 % (11.8-14.1); RDW-SD 42.8 fL; WBC 4.69 10^3/uL (4.4-10.8)
[2025-01-11 15:20] LABS: ALT 53 U/L (16-63); AST 25 U/L (15-37); Albumin 4.0 g/dL (3.4-5.0); Alkaline Phosphatase 101 U/L (46-116); Anion Gap 10.8 mmol/L (3-11); BUN 12 mg/dL (7-18); Bilirubin, Total 0.4 mg/dL (0.2-1.0); CO2 26.2 mmol/L (21.0-32.0); Calcium 9.0 mg/dL (8.5-10.1); Chloride 94 mmol/L (98-107); Estimated GFR 129.91 (mL/min/1.73m2); Glucose 80 mg/dL (74-106); Potassium 4.0 mmol/L (3.5-5.1); Sodium 131 mmol/L (136-145); Total Protein 8.0 g/dL (6.4-8.2)
[2025-01-11 16:30] VITALS: BP 109/68; PULSE 61; TEMP 35.9; O2SAT 100
[2025-01-11 18:28] LABS: Glucose Negative (Negative)
[2025-01-11] MEDS: Hydrocortisone 10 MG TAB 20 MG PO (18:42)
[2025-01-11 18:50] VITALS: BP 100/57; PULSE 67; RESP 18; TEMP 36.5; O2SAT 97
== END 2025-01-11 19:32 | disposition home or self-care (01) ==
PROVIDERS: Emergency Provider Emergency Medicine; PCP Student in an Organized Health Care Education/Training Program
DX: R41.82 Altered mental status, unspecified; I95.89 Other hypotension
CPT/HCPCS: 99284 ×2; 36415; 80053; 87040; 71046; 81003; 83605; 84439; 85025

== ENCOUNTER 2025-01-11 19:21 | Outpatient (REF) | payer MEDICAID, SELFPAY ==
[2025-01-11 20:21] LABS: Anion Gap 5.7 mmol/L (3-11); BUN 13 mg/dL (7-18); CO2 29.3 mmol/L (21.0-32.0); Calcium 9.0 mg/dL (8.5-10.1); Chloride 96 mmol/L (98-107); Estimated GFR 129.91 (mL/min/1.73m2); Glucose 69 mg/dL (74-106); Magnesium 1.9 mg/dL (1.8-2.4); Potassium 4.2 mmol/L (3.5-5.1); Sodium 131 mmol/L (136-145)
[2025-01-11 20:23] LABS: TSH < 0.01 uIU/mL (0.36-3.74)
== END 2025-01-11 19:22 | disposition home or self-care (01) ==
LOC: NCHCN 19:21
PROVIDERS: PCP Student in an Organized Health Care Education/Training Program; Visit Provider Student in an Organized Health Care Education/Training Program
DX: G40.909 Epilepsy, unspecified, not intractable, without status epilepticus (principal); E03.9 Hypothyroidism, unspecified
CPT/HCPCS: 80048; 83735; 84443

== ENCOUNTER 2025-01-17 03:13 | Outpatient (CLI) | payer MEDICAID, SELFPAY ==
[2025-01-17 14:19] LABS: Sodium 132 mmol/L (136-145)
== END 2025-01-17 03:14 | disposition home or self-care (01) ==
PROVIDERS: PCP Student in an Organized Health Care Education/Training Program; Visit Provider Internal Medicine Endocrinology, Diabetes & Metabolism
DX: E23.2 Diabetes insipidus (principal); E27.49 Other adrenocortical insufficiency
CPT/HCPCS: 36415; 84295

== ENCOUNTER 2025-02-03 02:44 | Outpatient (CLI) | payer MEDICAID, SELFPAY ==
[2025-02-03 13:04] LABS: Sodium 130 mmol/L (136-145)
== END 2025-02-03 02:45 | disposition home or self-care (01) ==
LOC: LBO 02:44
PROVIDERS: PCP Student in an Organized Health Care Education/Training Program; Visit Provider Internal Medicine Endocrinology, Diabetes & Metabolism
DX: E27.49 Other adrenocortical insufficiency (principal); E23.2 Diabetes insipidus
CPT/HCPCS: 36415; 84295

== ENCOUNTER 2025-02-10 04:40 | Outpatient (CLI) | payer MEDICAID, SELFPAY ==
[2025-02-10 11:59] LABS: Sodium 135 mmol/L (136-145)
== END 2025-02-10 04:41 | disposition home or self-care (01) ==
LOC: LBO 04:40
PROVIDERS: PCP Student in an Organized Health Care Education/Training Program; Visit Provider Internal Medicine Endocrinology, Diabetes & Metabolism
DX: E27.49 Other adrenocortical insufficiency (principal); E23.2 Diabetes insipidus
CPT/HCPCS: 36415; 84295

== ENCOUNTER 2025-03-31 04:17 | Outpatient (CLI) | payer MEDICAID, SELFPAY ==
[2025-03-31 10:55] LABS: Sodium 125 mmol/L (136-145)
== END 2025-03-31 04:18 | disposition home or self-care (01) ==
LOC: LBO 04:17
PROVIDERS: PCP Student in an Organized Health Care Education/Training Program; Visit Provider Internal Medicine Endocrinology, Diabetes & Metabolism
DX: E23.2 Diabetes insipidus (principal); E27.49 Other adrenocortical insufficiency
CPT/HCPCS: 36415; 84295

== ENCOUNTER 2025-04-01 12:22 | Emergency (ER) | payer MEDICAID, SELFPAY ==
[2025-04-01] VITALS (24 sets, daily range): BP systolic 97–128; BP diastolic 41–86; PULSE 32–190; RESP 8–20; TEMP 36.6; O2SAT 84–100
--- NOTE | 2025-04-01 12:15 | RT.EKG_ITS ---
APPROVED REPORT Exam: Resting ECG Reason for Exam: bradycardia Patient Location: E HR:40 bpm ECG Measurements Heart Rate 40 AXIS SD 202 P 26 QRSd 118 QRS 57 QT 479 T 58 QTc 390 Conclusion Sinus bradycardia...rate< 60 Incomplete left bundle branch block...QRSd>110mS, terminal axis(-90,-1) ST elev, probable normal early repol pattern...ST elevation, age<55 No STEMI
[2025-04-01 13:30] LABS: Glucose Negative (Negative)
--- NOTE | 2025-04-01 13:30 | RT.EKG_ITS ---
APPROVED REPORT Exam: Resting ECG Reason for Exam: bradycardia Patient Location: E HR:37 bpm ECG Measurements Heart Rate 37 AXIS TX 210 P 24 QRSd 120 QRS 55 QT 502 T 59 QTc 393 Conclusion Sinus bradycardia, rate 37 No interval abnormalities No STEMI No significant changes from priors
--- NOTE | 2025-04-01 13:40 | W.ED.GENAD ---
Discharge Plan Discharge Details Chief Complaint: GenMedical Primary Care Provider: Jimbo More ED Provider: Gabe Patel Home Meds and New Rx's Prescriptions: No Action acetylcysteine 600 mg capsule 600 mg PO BID cetirizine 10 mg tablet 20 mg PO DAILY PRN levothyroxine 200 mcg capsule 200 mcg PO DAILY magnesium gluconate 27 mg magnesium (500 mg) tablet 27 mg PO DAILY melatonin-lemon balm leaf extr 10-1 mg tablet 1 tab PO HS quetiapine 150 mg tablet extended release 24 hr 100 mg PO DAILY cholecalciferol (vitamin D3) 25 mcg (1,000 unit) capsule 25 mcg PO DAILY alendronate 70 mg tablet 70 mg PO QWEEK divalproex 500 mg tablet,delayed release (DR/EC) 500 mg PO BID pyridoxine (vitamin B6) 50 mg tablet 50 mg PO DAILY hydroxyzine HCl 25 mg tablet 25 mg PO QHS ferrous gluconate 324 mg (37.5 mg iron) tablet 324 mg PO DAILY tasimelteon 20 mg capsule 20 mg PO HS Rx Instructions: administer at approximately same time(s) each day baclofen 5 mg tablet 5 mg PO TID aspirin 81 mg tablet 81 mg PO DAILY omeprazole 40 mg capsule,delayed release(DR/EC) 40 mg PO DAILY zonisamide 100 mg capsule 400 mg PO QPM Qty: 360 3RF desmopressin 0.1 mg tablet 0.15 mg PO QNOON atorvastatin 40 mg Tablet 40 mg PO DAILY quetiapine [Seroquel] 200 mg Tablet 200 mg PO PRN PRN desmopressin 0.1 mg Tablet 0.1 mg PO QAM hydrocortisone 10 mg tablet 10 mg PO QNOON Qty: 0 0RF Rx Instructions: Resume on 03/30/19 hydrocortisone [Cortef] 10 MG tablet 20 mg PO QAM Qty: 0 0RF Rx Instructions: resume on 03/30/19 clonazepam 2 mg Tablet 2 mg PO Q6H PRN PRN montelukast 10 mg Tablet 10 mg PO DAILY hydrocortisone [Cortef] 20 mg tablet 20 mg PO DIRECTED Qty: 8 0RF Rx Instructions: Take 2 tablets (40 mg) in the morning, one tablet (20 mg) in the afternoon and one tablet (20 mg) at night for a total of two days. gabapentin 300 mg capsule 300 mg PO QHS HPI General Date/Time Provider Initiated Documentation: 04/01/25 12:34. HPI Narrative: 34 year-old male presents to ED today by EMS with caretakers with a chief complaint of low sodium reading in the outpatient setting yesterday- 124, and a slow heart rate today. Patient is blind and has intellectual disability and cannot give a clear history, has known diabetes insipidus. Quality described as slow heart rate, acting his baseline, no radiation to fever, altered from baseline, shortness of breath, cough, dysuria, hematuria. Severity is described as unable to quantify. Palliating factors include nothing specific. Provoking factors include nothing specific. Events leading up to the incident/Associated Symptoms: Patient has been seen at [facility] and [facility]. Patient not anticoagulated. Related Data Home Medications ?Medication ?Instructions ?Recorded ?Confirmed atorvastatin 40 mg tablet 40 mg PO DAILY 05/08/18 04/01/25 desmopressin 0.1 mg tablet 0.1 mg PO QAM 09/09/18 04/01/25 quetiapine 200 mg tablet (Seroquel) 200 mg PO PRN PRN 09/09/18 03/08/25 hydrocortisone 10 mg tablet 10 mg PO QNOON #0 tabs 03/28/19 04/01/25 hydrocortisone 10 mg tablet 20 mg (2 x 10 mg) PO QAM #0 tabs 03/28/19 04/01/25 (Cortef) aspirin 81 mg tablet 81 mg PO DAILY 08/23/19 04/01/25 omeprazole 40 mg capsule,delayed 40 mg PO DAILY 08/23/19 04/01/25 release desmopressin 0.1 mg tablet 0.15 mg PO QNOON 10/06/19 04/01/25 clonazepam 2 mg tablet 2 mg PO Q6H PRN PRN 11/17/20 04/01/25 montelukast 10 mg tablet 10 mg PO DAILY 11/17/20 04/01/25 acetylcysteine 600 mg capsule 600 mg PO BID 02/19/24 04/01/25 cetirizine 10 mg tablet 20 mg PO DAILY PRN 02/19/24 04/01/25 levothyroxine 200 mcg capsule 200 mcg PO DAILY 02/19/24 04/01/25 magnesium gluconate 27 mg 27 mg PO DAILY 02/19/24 04/01/25 magnesium (500 mg) tablet melatonin 10 mg-lemon balm leaf 1 tab PO HS 02/19/24 04/01/25 extract 1 mg tablet cholecalciferol (vitamin D3) 25 25 mcg PO DAILY 08/03/24 04/01/25 mcg (1,000 unit) capsule quetiapine 150 mg tablet,extended 100 mg PO DAILY 08/03/24 01/11/25 release 24 hr Held on 01/11/25. Instructions: Pt Stopped/Never Started hydrocortisone 20 mg tablet 20 mg PO DIRECTED #8 tabs 01/11/25 04/01/25 (Cortef) zonisamide 100 mg capsule 400 mg (4 x 100 mg) PO QPM #360 01/12/25 03/08/25 caps alendronate 70 mg tablet 70 mg PO QWEEK 03/08/25 04/01/25 baclofen 5 mg tablet 5 mg PO TID 03/08/25 04/01/25 divalproex 500 mg tablet,delayed 500 mg PO BID 03/08/25 04/01/25 release ferrous gluconate 324 mg (37.5 mg 324 mg PO DAILY 03/08/25 04/01/25 iron) tablet hydroxyzine HCl 25 mg tablet 25 mg PO QHS 03/08/25 04/01/25 pyridoxine (vitamin B6) 50 mg 50 mg PO DAILY 03/08/25 03/08/25 tablet tasimelteon 20 mg capsule 20 mg PO HS 03/08/25 03/08/25 gabapentin 300 mg capsule 300 mg PO QHS 04/01/25 04/01/25 Previous Rx's ?Medication ?Instructions ?Recorded hydrocortisone 10 mg tablet 10 mg PO QNOON #0 tabs 03/28/19 hydrocortisone 10 mg tablet 20 mg (2 x 10 mg) PO QAM #0 tabs 03/28/19 (Cortef) hydrocortisone 20 mg tablet 20 mg PO DIRECTED #8 tabs 01/11/25 (Cortef) zonisamide 100 mg capsule 400 mg (4 x 100 mg) PO QPM #360 01/12/25 caps Allergies Allergy/AdvReac Type Severity Reaction Status Date / Time gemfibrozil (From Lopid) AdvReac Unknown Other (See Unverified 04/01/25 12:31 Comment) General Stated Complaint: GenMedical KWASI: 3 Review of Systems All systems reviewed & are unremarkable except as noted in HPI and below Exam Narrative Exam Narrative: GENERAL APPEARANCE: Well-nourished, non-toxic, awake and alert to spontaneous sounds- chronically blind, atraumatic, no acute distress. SKIN: Warm, pale, dry, intact, without rashes/lesions/ulcerations. HEAD: Normocephalic, atraumatic, normal hair distribution for gender/age. EYES: Normal conjunctiva, no exudates on lids/lashes. ENT: Nares patent, no circumoral cyanosis, no facial swelling NECK: Supple, trachea midline, painless cervical ROM. LUNGS/CHEST: Lungs CTA bilaterally- no rhonchi/rales/wheezes diffusely, non-labored respirations, normal A/P diameter, symmetrical expansion, no chest wall deformity HEART (CV/PV): Regular rate and rhythm without murmur- very bradycardic, L radial pulse 2+, no peripheral edema, no JVD. ABDOMEN: Soft, non-distended, no guarding, no tenderness. MSK: Normal ROM, no swelling/deformity to bilateral UEs or LEs, moving all extremities without weakness, no cyanosis, spine midline without tenderness, normal curvature. NEURO: Mental Status - alert to baseline per caretakers No facial droop, no forehead involvement. Motor: No focal weakness Sensory: sensation intact to light touch globally. Gait NT. PSYCH: euthymic, cooperative, pleasant, nonverbal- makes noises and some words Course Vital Signs Vital signs: Vital Signs Temperature 36.6 C 04/01/25 12:25 Pulse 49 L 04/01/25 12:25 Respiratory Rate 20 04/01/25 12:25 Blood Pressure 116/82 04/01/25 12:25 Pulse Oximetry 98 04/01/25 12:25 Temperature 36.6 C 04/01/25 12:28 Pulse 49 L 04/01/25 12:28 Respiratory Rate 20 04/01/25 12:28 Blood Pressure 116/82 04/01/25 12:28 Pulse Oximetry 98 04/01/25 12:28 Pain Level 0 04/01/25 12:28 Lab/Test Results Lab/Test Results: Laboratory Tests Range/Units 04/01/25 12:57 Urine Color (Yellow) Yellow Urine Clarity (Clear) Cloudy Urine pH (5-8) 7.5 Ur Specific [place] (1.005-1.025) 1.020 Urine Protein (Neg-Trace) mg/dL Negative Urine Ketones (Negative) mg/dL Negative Urine Blood (Negative) Negative Urine Nitrite (Negative) Negative Urine Bilirubin (Negative) Negative Urine Urobilinogen (Up to 0.2) mg/dL 0.2 Ur Leukocyte Esterase (Negative) Negative Urine Glucose (Negative) mg/dL Negative Medical Decision Making This dictation utilizes [id number] dictation software and may contain unedited grammatical errors. 34 year-old male presents to ED today by EMS with caretakers with a chief complaint of low sodium reading in the outpatient setting yesterday- 124, and a slow heart rate today. Patient is blind and has intellectual disability and cannot give a clear history, has known diabetes insipidus. Quality described as slow heart rate, acting his baseline, no radiation to fever, altered from baseline, shortness of breath, cough, dysuria, hematuria. Severity is described as unable to quantify. Palliating factors include nothing specific. Provoking factors include nothing specific. Events leading up to the incident/Associated Symptoms: Patient has been seen at [facility] and [facility]. 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 Family and social history: lives with caretakers. Pertinent exam findings / vital signs include acting at his baseline per caretakers, alert to spontaneous sounds, regular but bradycardic rhythm, benign abdomen, lungs CTA. Differential / pathologies of concern include arrhythmia, hyponatremia, infection. Diagnostic studies of: - CBC, CMP, lactate, magnesium, CK, troponin, TSH, UA, EKG, XR chest, rhythm strip. Tick Panel - CBC shows no leukocytosis, shows chronic stable anemia without left shift - Lactate 0.8 negative - Sodium is improved from outpatient lab draw yesterday at 129, calcium 8.1, LFTs within normal limits - Magnesium within normal limits - CK is negative - TSH is very low at below 0.1 - Normal T4 - UA is benign - EKG shows sinus bradycardia at 37 bpm with P waves marching out equally and UT interval stable, rhythm strip also confirms sinus nature - tick panel pending - XR pending at sign-out Interventions of: -Paged [facility] Cardiology consult @ [phone] - discussed informally with Dr. Meneses of hospitalist service prior to. ED Course/Assessment/Plan: 34-year-old male presents after outpatient lab draws yesterday showed hyponatremia in the setting of diabetes insipidus and chronic cognitive disabilities, noncommunicative and cortically blind. His sodium has improved without intervention to 129 today he has known hypocalcemia his calcium is 8.1, his laboratory workup is fairly benign otherwise he does have hypopituitarism -sees [facility] for endocrine. He has bradycardia down into the low 30s appears to be sinus and not in a complete heart block, unclear of the cause, patient is not able to communicate any symptoms but he is overall normotensive not in any respiratory distress he has had 1 reading of 48 and 2023 pulse rate and had some bradycardic rhythms in the 40s this summer but appears to be a new problem in 2024, patient signed out pending [facility] cardiology consultation. Findings not consistent with complete heart block, severe hyponatremia, infection, sepsis. Disposition of Bradycardia. Patient verbalized understanding of the plan and return to ED criteria and engaged in shared decision making. Medical Records Medical records reviewed: Yes I reviewed the patient's medical records. Imaging Data Radiologic Study: Attestation: I personally reviewed and interpreted this imaging study as follows: Imaging: X-Ray Lab Data Lab results reviewed: Yes I reviewed the patient's lab results. Labs: Laboratory Tests Range/Units 04/01/25 04/01/25 12:57 13:50 WBC (4.4-10.8) 10^3/uL 4.70 RBC (4.36-5.78) 10^6/uL 4.85 Hgb (13.5-17.5) g/dL 12.9 L Hct (40.0-50.0) % 38.1 L MCV (80-95) fL 79 L MCH (27.0-33.0) pg 26.6 L MCHC (32.0-36.0) % 33.9 RDW (11.8-14.1) % 14.3 H Plt Count (130-400) 10^3/uL 128 L MPV (8.0-11.0) fL 8.8 Immature Gran % % 0.6 Neutrophils % % 59.8 Lymphocytes % % 30.4 Monocytes % % 8.1 Eosinophils % % 0.9 Basophils % % 0.2 Nucleated RBC % (0.0-0.3) % 0.0 Absolute Neutrophils (1.2-6.7) 10^3/uL 2.81 Absolute Lymphocytes (1.2-3.4) 10^3/uL 1.43 Absolute Monocytes (0.1-0.8) 10^3/uL 0.38 Absolute Eosinophils (0.0-0.7) 10^3/uL 0.04 Absolute Basophils (0.0-0.2) 10^3/uL 0.01 VBG Lactate (<or=2.0) mmol/L 0.8 Sodium (136-145) mmol/L 129 L Potassium (3.5-5.1) mmol/L 4.3 Chloride (98-107) mmol/L 94 L Carbon Dioxide (21.0-32.0) mmol/L 28.7 Anion Gap (3-11) mmol/L 6.3 BUN (7-18) mg/dL 12 Creatinine (0.70-1.30) mg/dL 0.8 Est GFR (CKD-EPI 2020) (mL/min/1.73m2) 119.10 Glucose (74-106) mg/dL 84 Calcium (8.5-10.1) mg/dL 8.1 L Magnesium (1.8-2.4) mg/dL 1.9 Total Bilirubin (0.2-1.0) mg/dL 0.4 AST (15-37) U/L 12 L ALT (16-63) U/L 27 Alkaline Phosphatase (46-116) U/L 77 Creatine Kinase (39-308) U/L 44 Troponin I (<or=76) ng/L 4 Total Protein (6.4-8.2) g/dL 6.6 Albumin (3.4-5.0) g/dL 3.5 TSH (0.36-3.74) uIU/mL < 0.01 L Free T4 (0.76-1.46) ng/dL 1.36 Urine Color (Yellow) Yellow Urine Clarity (Clear) Cloudy Urine pH (5-8) 7.5 Ur Specific [place] (1.005-1.025) 1.020 Urine Protein (Neg-Trace) mg/dL Negative Urine Ketones (Negative) mg/dL Negative Urine Blood (Negative) Negative Urine Nitrite (Negative) Negative Urine Bilirubin (Negative) Negative Urine Urobilinogen (Up to 0.2) mg/dL 0.2 Ur Leukocyte Esterase (Negative) Negative Urine Glucose (Negative) mg/dL Negative PFSH All Active Problems Schwannoma of cranial nerve (Acute) Picking own skin (Acute) Abrasion (Acute) Abscess (Acute ~07/19/24) Right side upper thigh (? 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) Constipation (Chronic) Leg cramps (Chronic) Insomnia (Chronic) GERD (gastroesophageal reflux disease) (Chronic) Seizures (Chronic) TBI (traumatic brain injury) (Chronic) Medical History Chronic excoriation Furuncle of left axilla Hx of benign neoplasm of 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 osteoporosis Contracture of joint Pruritic disorder Steatosis of liver Gastritis Optic atrophy Hemiplegia Speech and language disorder Trichotillomania Restlessness and agitation Anemia, iron deficiency Obesity Hypo-osmolality and hyponatremia Diabetes Hypopituitarism Hypothyroidism History of pica 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 Cortical blindness Mood disorder Osteoporosis Hypertriglyceridemia Urinary incontinence H/O secondary hypogonadism Hemiparesis, left History of craniopharyngioma Poor dentition Hypocalcemia Elevated liver enzymes Urinary retention Hx of fracture of pelvis 2018 s/s seizure CVA (cerebral vascular accident) post-surgical Surgical History H/O brain surgery right craniotomy for craniopharyngioma Family History Mother Renal failure syndrome Social History Smoking/Tobacco Use Status: Never Smoking risk assessment performed?: Yes Alcohol Intake: never Drug use: Never Substance use type: does not use Household members: caregiver Housing: assisted living facility current occupation: Disabled In current or past relationships, have you been: other Do you feel safe at home: Yes Do you feel safe in your relationship?: Yes Additional Social history: unable to assess, postictal
[2025-04-01 13:58] LABS: Abs Immature Grans 0.03 10^3/uL (0.0-0.06); HCT 38.1 % (40.0-50.0); HGB 12.9 g/dL (13.5-17.5); Immature Grans % 0.6 %; MCH 26.6 pg (27.0-33.0); MCHC 33.9 % (32.0-36.0); MCV 79 fL (80-95); MPV 8.8 fL (8.0-11.0); Platelet Count 128 10^3/uL (130-400); RBC 4.85 10^6/uL (4.36-5.78); RDW 14.3 % (11.8-14.1); RDW-SD 40.7 fL; WBC 4.70 10^3/uL (4.4-10.8)
[2025-04-01] MEDS: Normal Saline 1,000 ML 75 ML IV (14:10)
[2025-04-01 14:26] LABS: ALT 27 U/L (16-63); AST 12 U/L (15-37); Albumin 3.5 g/dL (3.4-5.0); Alkaline Phosphatase 77 U/L (46-116); Anion Gap 6.3 mmol/L (3-11); BUN 12 mg/dL (7-18); Bilirubin, Total 0.4 mg/dL (0.2-1.0); CO2 28.7 mmol/L (21.0-32.0); Calcium 8.1 mg/dL (8.5-10.1); Chloride 94 mmol/L (98-107); Creatine Kinase 44 U/L (39-308); Estimated GFR 119.10 (mL/min/1.73m2); Glucose 84 mg/dL (74-106); Magnesium 1.9 mg/dL (1.8-2.4); Potassium 4.3 mmol/L (3.5-5.1); Sodium 129 mmol/L (136-145); Total Protein 6.6 g/dL (6.4-8.2); Troponin I 4 ng/L (<or=76)
[2025-04-01 14:27] LABS: TSH (W/Ref FT4) < 0.01 uIU/mL (0.36-3.74)
--- NOTE | 2025-04-01 15:12 | DI.RAD_ITS ---
Exam(s) XR PORTABLE CHEST AP EXAM: XR PORTABLE CHEST AP CLINICAL HISTORY: bradycardia TECHNIQUE: 2D digital imaging was performed of the chest. One image was obtained. An AP view was obtained. COMPARISON: CR XR CHEST 2V PA LATERAL from 01/11/2025 FINDINGS: MEDIASTINUM: Normal. HEART: Normal. PULMONARY VASCULATURE: Normal. LUNGS: Clear. PLEURAL SPACE: No pleural effusion or pneumothorax. BONE:Within normal limits for the patient's age. OTHER FINDINGS:Normal. IMPRESSION: No acute pulmonary findings. DATA REPOSITORY: RADIATION DOSE DELIVERED:
--- NOTE | 2025-04-01 17:32 | NUR.NOTE ---
Nursing Note: caregivers at the bed side during entire stay in department. Reported that PT is at baseline. he has been playing with toys and listening to a movie on his personal Ipad.
[2025-04-04 00:44] LABS: B. miyamotoi PCR Negative (Negative); Babesia divergens/MO-1 Negative (Negative); Ehrlichia muris eauclairensis Negative (Negative)
[2025-04-04 11:29] LABS: Lyme Ab w Rflx to Lyme Confirm Negative (Negative)
== END 2025-04-01 18:47 | disposition home or self-care (01) ==
PROVIDERS: Physician Assistant; Emergency Provider Physician Assistant; PCP Student in an Organized Health Care Education/Training Program
DX: E23.2 Diabetes insipidus (principal); E87.1 Hypo-osmolality and hyponatremia; R00.1 Bradycardia, unspecified; E03.9 Hypothyroidism, unspecified
CPT/HCPCS: 80053; 82550; 87798; 93005; 96360; 99284; 71045; 81003; 83605; 83735; 84439; 84443; 84484; 85025; 86618; 93010

== ENCOUNTER 2025-04-04 07:29 | Outpatient (CLI) | payer MEDICAID, SELFPAY ==
[2025-04-04 13:08] LABS: Anion Gap 9.1 mmol/L (3-11); BUN 15 mg/dL (7-18); CO2 26.9 mmol/L (21.0-32.0); Calcium 8.4 mg/dL (8.5-10.1); Chloride 96 mmol/L (98-107); Estimated GFR 114.93 (mL/min/1.73m2); Glucose 64 mg/dL (74-106); Potassium 3.5 mmol/L (3.5-5.1); Sodium 132 mmol/L (136-145)
[2025-04-04 13:37] LABS: Sodium 133 mmol/L (136-145)
== END 2025-04-04 07:30 | disposition home or self-care (01) ==
LOC: LBO 04-05 07:29
PROVIDERS: Physician Assistant; PCP Student in an Organized Health Care Education/Training Program; Visit Provider Internal Medicine Endocrinology, Diabetes & Metabolism
DX: E87.1 Hypo-osmolality and hyponatremia (principal); E27.49 Other adrenocortical insufficiency; E23.2 Diabetes insipidus
CPT/HCPCS: 80048; 84295

== ENCOUNTER 2025-04-11 03:38 | Outpatient (CLI) | payer MEDICAID, SELFPAY ==
[2025-04-11 09:57] LABS: HCT 46.2 % (40.0-50.0); HGB 15.0 g/dL (13.5-17.5); MCH 26.1 pg (27.0-33.0); MCHC 32.5 % (32.0-36.0); MCV 81 fL (80-95); MPV 8.7 fL (8.0-11.0); Platelet Count 204 10^3/uL (130-400); RBC 5.74 10^6/uL (4.36-5.78); RDW 14.8 % (11.8-14.1); RDW-SD 43.0 fL; WBC 6.94 10^3/uL (4.4-10.8)
[2025-04-11 11:13] LABS: ALT 26 U/L (16-63); AST 8 U/L (15-37); Albumin 4.2 g/dL (3.4-5.0); Alkaline Phosphatase 90 U/L (46-116); Anion Gap 7.5 mmol/L (3-11); BUN 16 mg/dL (7-18); Bilirubin, Total 0.4 mg/dL (0.2-1.0); CO2 30.5 mmol/L (21.0-32.0); Calcium 9.2 mg/dL (8.5-10.1); Chloride 102 mmol/L (98-107); Estimated GFR 101.28 (mL/min/1.73m2); Glucose 73 mg/dL (74-106); Potassium 3.9 mmol/L (3.5-5.1); Sodium 140 mmol/L (136-145); TSH (W/Ref FT4) < 0.01 uIU/mL (0.36-3.74); Total Protein 8.2 g/dL (6.4-8.2)
[2025-04-11 11:46] LABS: T4 11.6 ug/dL (4.7-13.3)
[2025-04-11 17:27] LABS: T3, Total 144 ng/dL (97-169)
== END 2025-04-11 03:39 | disposition home or self-care (01) ==
LOC: LBO 03:39
PROVIDERS: PCP Student in an Organized Health Care Education/Training Program; Visit Provider Psychiatry & Neurology Psychiatry
DX: Z79.899 Other long term (current) drug therapy (principal)
CPT/HCPCS: 36415; 80053; 85027; 80164; 84436; 84439; 84443; 84480

== ENCOUNTER 2025-04-11 11:17 | Outpatient (CLI) | payer MEDICAID, SELFPAY ==
--- NOTE | 2025-04-11 11:30 | RT.EKG_ITS ---
APPROVED REPORT Exam: Resting ECG Reason for Exam: BRADYCARDIA Patient Location: O HR:66 bpm ECG Measurements Heart Rate 66 AXIS WY 176 P 62 QRSd 92 QRS 70 QT 392 T 56 QTc 411 Conclusion Sinus arrhythmia...V-rate 53- 80, variation>10% RSR' in V1 or V2, normal variant
== END 2025-04-11 11:18 | disposition home or self-care (01) ==
PROVIDERS: PCP Student in an Organized Health Care Education/Training Program; Visit Provider Student in an Organized Health Care Education/Training Program
DX: R00.1 Bradycardia, unspecified (principal)
CPT/HCPCS: 93005; 93010

== ENCOUNTER 2025-04-14 04:02 | Outpatient (CLI) | payer MEDICAID, SELFPAY ==
[2025-04-14 11:10] LABS: Sodium 142 mmol/L (136-145)
== END 2025-04-14 04:03 | disposition home or self-care (01) ==
LOC: LBO 04:02
PROVIDERS: PCP Student in an Organized Health Care Education/Training Program; Visit Provider Internal Medicine Endocrinology, Diabetes & Metabolism
DX: E27.49 Other adrenocortical insufficiency (principal); E23.2 Diabetes insipidus
CPT/HCPCS: 36415; 84295

== ENCOUNTER 2025-05-05 03:32 | Outpatient (CLI) | payer MEDICAID, SELFPAY ==
[2025-05-05 14:11] LABS: Sodium 142 mmol/L (136-145)
== END 2025-05-05 03:33 | disposition home or self-care (01) ==
LOC: LBO 03:32
PROVIDERS: PCP Student in an Organized Health Care Education/Training Program; Visit Provider Internal Medicine Endocrinology, Diabetes & Metabolism
DX: E23.2 Diabetes insipidus (principal)
CPT/HCPCS: 36415; 84295

== ENCOUNTER 2025-06-01 03:19 | Outpatient (CLI) | payer MEDICAID, SELFPAY ==
[2025-06-01 13:55] LABS: Sodium 131 mmol/L (136-145)
== END 2025-06-01 03:20 | disposition home or self-care (01) ==
LOC: LBO 03:19
PROVIDERS: PCP Student in an Organized Health Care Education/Training Program; Visit Provider Internal Medicine Endocrinology, Diabetes & Metabolism
DX: E23.2 Diabetes insipidus (principal)
CPT/HCPCS: 36415; 84295

== ENCOUNTER 2025-06-15 00:53 | Outpatient (CLI) | payer MEDICAID, SELFPAY ==
[2025-06-15 16:15] LABS: Sodium 136 mmol/L (136-145)
== END 2025-06-15 00:54 | disposition home or self-care (01) ==
LOC: LBO 00:53
PROVIDERS: PCP Student in an Organized Health Care Education/Training Program; Visit Provider Internal Medicine Endocrinology, Diabetes & Metabolism
DX: E23.2 Diabetes insipidus (principal)
CPT/HCPCS: 36415; 84295

== ENCOUNTER 2025-06-24 20:24 | Observation (INO) | payer MEDICAID, SELFPAY ==
[2025-06-24] VITALS (39 sets, daily range): BP systolic 94–121; BP diastolic 55–96; PULSE 40–64; RESP 8–17; TEMP 34–34.2; O2SAT 85–100
--- NOTE | 2025-06-24 20:12 | W.ED.GENAD ---
Discharge Plan Disposition Patient Disposition: Admit to [facility] Condition: Improving Discharge Details Clinical Impression: Hypothermia not due to cold exposure, Hyponatremia Primary Care Provider: Jimbo More ED Provider: Yossi Myers [facility] Meds and New Rx's Prescriptions: No Action levothyroxine 200 mcg capsule 200 mcg PO DAILY cholecalciferol (vitamin D3) 25 mcg (1,000 unit) capsule 25 mcg PO DAILY alendronate 70 mg tablet 70 mg PO QWEEK divalproex 500 mg tablet,delayed release (DR/EC) 500 mg PO BID tasimelteon 20 mg capsule 20 mg PO HS Rx Instructions: administer at approximately same time(s) each day baclofen 5 mg tablet 15 mg PO TID zonisamide 100 mg capsule 400 mg PO QPM Qty: 360 3RF desmopressin 0.1 mg tablet 0.15 mg PO QPM desmopressin 0.1 mg Tablet 0.1 mg PO QAM gabapentin 300 mg capsule 300 mg PO QHS PRN olanzapine 15 mg tablet 30 mg PO DAILY levothyroxine 100 mcg capsule 100 mcg PO .COMPLEX Rx Instructions: 100 mcg orally Every 7 Days with 200mcg tab; calcium carbonate 500 mg calcium (1,250 mg) tablet,chewable 500 mg PO DAILY hydrocortisone [Cortef] 20 mg tablet 20 mg PO DAILY hydrocortisone [Cortef] 10 MG tablet 5 mg PO QAM hydrocortisone 10 mg tablet 10 mg PO .[id number] Patient Comments: 1300 HPI General Mode of arrival: EMS. Date/Time Provider Initiated Documentation: 06/24/25 20:29. Limitations to Documentation: other (nonverbal). Information obtained by: family (caretakers), RN notes reviewed and old records reviewed. HPI Narrative: Patient presents to ED by EMS with his caregivers reporting hyperthermia. Per caretakers he has for the most part been acting at his baseline. Maybe sleeping a little bit more but that is not necessarily unusual. He has been having medication adjustments because of bradycardia. They report that his heart rate has been baseline around 40 to 50 bpm. His afternoon waste hand was leaving for the day and went to give him a hug. She noted that he felt very cold. Temperature was taken by his evening waste hand and he was noted to be down around 93. EMS was activated. He was found to be hypothermic, bradycardic, hypotensive. Blood pressure did improve without intervention. Other than medication changes he has been stable and they report no cough or URI symptoms, vomiting or diarrhea, rashes. He is intermittently incontinent of urine. 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 It does not sound like there have been any changes in his endocrine medications. Related Data Home Medications ?Medication ?Instructions ?Recorded ?Confirmed desmopressin 0.1 mg tablet 0.1 mg PO QAM 09/09/18 06/24/25 desmopressin 0.1 mg tablet 0.15 mg PO QPM 10/06/19 06/24/25 levothyroxine 200 mcg capsule 200 mcg PO DAILY 02/19/24 06/24/25 cholecalciferol (vitamin D3) 25 25 mcg PO DAILY 08/03/24 06/24/25 mcg (1,000 unit) capsule zonisamide 100 mg capsule 400 mg (4 x 100 mg) PO QPM #870 01/12/25 06/24/25 caps alendronate 70 mg tablet 70 mg PO QWEEK 03/08/25 06/24/25 baclofen 5 mg tablet 15 mg PO TID 03/08/25 06/24/25 divalproex 500 mg tablet,delayed 500 mg PO BID 03/08/25 06/24/25 release tasimelteon 20 mg capsule 20 mg PO HS 03/08/25 06/24/25 gabapentin 300 mg capsule 300 mg PO QHS PRN 04/01/25 06/24/25 calcium carbonate 500 mg PO DAILY 06/24/25 06/24/25 hydrocortisone 10 mg tablet 10 mg PO .[id number] 06/24/25 06/24/25 hydrocortisone 10 mg tablet 5 mg PO QAM 06/24/25 06/24/25 (Cortef) hydrocortisone 20 mg tablet 20 mg PO DAILY 06/24/25 06/24/25 (Cortef) levothyroxine 100 mcg capsule 100 mcg PO .COMPLEX 06/24/25 06/24/25 olanzapine 15 mg tablet 30 mg PO DAILY 06/24/25 06/24/25 Previous Rx's ?Medication ?Instructions ?Recorded zonisamide 100 mg capsule 400 mg (4 x 100 mg) PO QPM #790 01/12/25 caps Allergies Allergy/AdvReac Type Severity Reaction Status Date / Time gemfibrozil (From Lopid) AdvReac Unknown Other (See Unverified 06/24/25 22:13 Comment) General KWASI: 3 Exam Narrative Exam Narrative: Const: WDWN male in NAD. VS per triage. HEENT: NC/AT. Normal facial exam. Neck: Supple. Trachea midline. Lungs: Normal respiratory effort. Lungs are clear. Cor: RRR without murmur. Good radial pulses. GI: Soft/ND/NT. Neuro: Awake, responds to caretakers appropriately, baseline per caretakers. Ext: No C/C/E. Skin: No rash or breakdown appreciated, no erythema. Medical Decision Making Patient presenting to ED by EMS along with his caretakers with hypothermia. Rectal temp done here confirms hypothermia down to 93. He is bradycardic in the 40s, occasionally dipping into the 30s. Systolic pressure high 90s. Does not appear to be in any distress and per waste hand is at his baseline in terms of his mental status/neurologic function. 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 He has been receiving his medications including his hydrocortisone. Differential includes sepsis, endocrine dysfunction, medication reaction as he has been having manage removed and added including olanzapine. Will obtain access and give stress dose steroids. Laboratory studies including blood cultures to be obtained. Temperature sensing Tsang and Marianna hugger applied. 2 L of LR ordered. Fluvid swab ordered. Will obtain CT of the chest/abdomen/pelvis given patient's inability to communicate effectively. 22:00 - Patient's HR and BP stable now, still harmony in the 40s and 50s which is recent baseline for him. His EKG is sinus bradycardia with borderline prolonged TN interval which is unchanged. He now has left bundle branch appearing QRS which is not significantly different than before but previous QRS duration was 120 ms so not technically a bundle branch block. There are no acute ST changes. Laboratory studies with a white count of 3.1 and hemoglobin 12.4 with normal platelets at 152. Lactic acid is normal at 1.4. Venous blood gas normal with a pH of 7.32. Chemistry significant for sodium of 125. It has been low like this previously though not recently. Potassium just a little low at 3.4. Kidney function is normal. Liver function is normal. Unable to get the temperature sensing Tsang in place but coud? catheter placed with return of clear urine. Urinalysis negative. Fluvid swab negative. CT pending and will repeat rectal temp on return. I have reviewed all of his medications with his caregivers. A significant number has been discontinued. The only new medication is Zyprexa which increased from 15 mg to 30 mg 3 days ago. Literature review shows that while this medication is typically associated with hyperthermia there are a number of reports linking hyperthermia with antipsychotics including olanzapine. Will continue to monitor but at this point does not appear to have infection/sepsis. 23:25 - Patient's vitals continue to improve and stabilize. His CT chest/abd/pelvis show no evidence of infectious process. Previous stable fractures noted involving spine. Temperature up over 95. Discussed with hospitalist for admission to observe vitals, temperature and trend sodium. I have discussed with his waste hand who is in agreement. Medical Records Medical records reviewed: Yes I reviewed the patient's medical records. Lab Data Lab results reviewed: Yes I reviewed the patient's lab results. Lab results narrative: see [facility] ECG Data Attestation: I personally reviewed and interpreted this ECG (s) as follows: Prior ECG tracings: available for review Interpretation: see EKG/[facility] Critical Care Time Critical Care Time Critical Care Time: Yes Total Critical Care Time: 60 Attestation: Upon my evaluation, this patient had a high probability of imminent or life-threatening deterioration, which required my direct attention, intervention, and personal management. I have personally provided 60 minutes of critical care time exclusive of time spent on separately billable procedures. Time includes monitoring for potential decompensation, ordering of tests and medications, review of laboratory and radiology results, discussion with consultants and documentation. Interventions were performed as documented above in procedures. [facility] All Active Problems (Updated 06/24/25 @ 23:38 by Yossi Myers MD) Hyponatremia (Acute) Hypothermia not due to cold exposure (Acute) Schwannoma of cranial nerve (Acute) Picking own skin (Acute) Abrasion (Acute) Abscess (Acute ~07/19/24) Right side upper thigh (? 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) Constipation (Chronic) Leg cramps (Chronic) Insomnia (Chronic) GERD (gastroesophageal reflux disease) (Chronic) Seizures (Chronic) TBI (traumatic brain injury) (Chronic) Medical History Chronic excoriation Furuncle of left axilla Hx of benign neoplasm of 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 osteoporosis Contracture of joint Pruritic disorder Steatosis of liver Gastritis Optic atrophy Hemiplegia Speech and language disorder Trichotillomania Restlessness and agitation Anemia, iron deficiency Obesity Hypo-osmolality and hyponatremia Diabetes Hypopituitarism Hypothyroidism History of pica 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 Cortical blindness Mood disorder Osteoporosis Hypertriglyceridemia Urinary incontinence H/O secondary hypogonadism Hemiparesis, left History of craniopharyngioma Poor dentition Hypocalcemia Elevated liver enzymes Urinary retention Hx of fracture of pelvis 2017 s/s seizure CVA (cerebral vascular accident) post-surgical Surgical History H/O brain surgery right craniotomy for craniopharyngioma Family History Mother Renal failure syndrome Social History Smoking/Tobacco Use Status: Never Smoking risk assessment performed?: Yes Alcohol Intake: never Drug use: Never Substance use type: does not use Household members: caregiver Housing: assisted living facility current occupation: Disabled In current or past relationships, have you been: other Do you feel safe at home: Yes Do you feel safe in your relationship?: Yes
--- NOTE | 2025-06-24 20:15 | RT.EKG_ITS ---
APPROVED REPORT Exam: Resting ECG Reason for Exam: bradycardia Patient Location: E HR:43 bpm ECG Measurements Heart Rate 43 AXIS MD 217 P 31 QRSd 135 QRS 61 QT 524 T 65 QTc 445 Conclusion Sinus bradycardia...rate< 60 Borderline prolonged MD interval...MD >212, V-rate 30- 49 Left bundle branch block...QRSd>120, broad/notched R Similar to 04/01/25 EKG at 12:27 though QRS is now > 120ms previous similar morphology but right at 120ms. No ST changes.
[2025-06-24 20:38] LABS: BE (Venous) 1 mmol/L (-2-3); HCO3 (Venous) 27 mmol/L (23-28); O2 Sat (Venous) 42 %; TCO2 (Venous) 25 mmol/L (24-29); pCO2 (Venous) 52 mmHg (41-51); pO2 (Venous) 27 mmHg
[2025-06-24 20:38] LABS: Abs Immature Grans 0.03 10^3/uL (0.0-0.06); HCT 35.8 % (40.0-50.0); HGB 12.4 g/dL (13.5-17.5); Immature Grans % 1.0 %; MCH 26.5 pg (27.0-33.0); MCHC 34.6 % (32.0-36.0); MCV 77 fL (80-95); MPV 8.9 fL (8.0-11.0); Platelet Count 152 10^3/uL (130-400); RBC 4.68 10^6/uL (4.36-5.78); RDW 13.6 % (11.8-14.1); RDW-SD 37.0 fL; WBC 3.08 10^3/uL (4.4-10.8)
[2025-06-24 20:57] LABS: Magnesium 1.7 mg/dL (1.6-2.6)
[2025-06-24 20:58] LABS: ALT 22 U/L (10-49); AST 17 U/L (<34); Albumin 4.3 g/dL (3.2-5.0); Alkaline Phosphatase 92 U/L (46-116); Anion Gap 8.7 mmol/L (3-11); BUN 15 mg/dL (9-23); Bilirubin, Total 0.6 mg/dL (0.2-1.2); CO2 26.2 mmol/L (20.0-31.0); Calcium 8.6 mg/dL (8.3-10.6); Chloride 90 mmol/L (98-107); Glucose 77 mg/dL (74-106); Lipase 19 U/L (<53); Potassium 3.4 mmol/L (3.5-5.1); Sodium 125 mmol/L (136-145); Total Protein 7.3 g/dL (5.7-8.2)
[2025-06-24] MEDS: Hydrocortisone SOD SUC. 100 MG VIAL IVP (21:00)
[2025-06-24] MEDS: Lactated Ringers 2,000 ML 1000 ML IV (21:02)
[2025-06-24 21:31] LABS: COVID-19 PCR Negative (Negative); RSV PCR Negative (Negative)
[2025-06-24] MEDS: Lidocaine 2% Jelly 11 ML SYR (21:35)
[2025-06-24 21:41] LABS: Glucose Negative (Negative)
[2025-06-24] MEDS: Omnipaque 350 MG/ML 100 ML BTL IJ (22:40)
[2025-06-24] MEDS: Normal Saline - Diluent 50 ML VIAL IJ (22:42)
[2025-06-24] MEDS: Normal Saline Flush 10 ML SYR IVP (22:42)
--- NOTE | 2025-06-24 22:45 | DI.CT_ITS ---
Exam(s) CT CHEST/ABD/PEL W EXAM: CT CHEST/ABD/PEL W CLINICAL HISTORY: hypothermia/hypotensive unknown etiology TECHNIQUE: Imaging Protocol: Axial computed tomography images with coronal and sagittal reformatted images were created and reviewed. Lung Computer Aided Detection (CAD) was utilized. CONTRAST MATERIAL: Intravenous: Omnipaque 350 contrast volume:100 mL Oral: No COMPARISON: CT CT ABDOMEN PELVIS W from 08/04/[address] ABDOMEN PELVIS W from 08/07/2019 CR,XR XR CHEST 2V PA LATERAL from 08/19/2019 CR XR ABDOMEN FLAT PLATE from 07/10/2020 CR XR DEXA BONE DENSITY W/WO ALLISON from 10/03/2023 FINDINGS: The examination is limited due to patient motion artifact. CHEST: Tracheobronchial tree: Patent where visualized. No evidence of bronchiectasis. Pulmonary parenchyma: No consolidation or dominant measurable mass. There is atelectasis seen in the lung bases. There is a nodule associated with the left major fissure. There are no suspicious pulmonary nodules. Visualized thyroid gland: Unremarkable. Mediastinum and Cat: No dominant adenopathy or fluid collection. The esophagus is unremarkable. Pleura: No effusion or pneumothorax. Heart: The heart is not dilated. No coronary artery calcifications are seen. No pericardial effusion. Pulmonary arteries: The pulmonary arteries are inadequately opacified, due to the timing of the bolus, for evaluation of pulmonary emboli. Aorta: Thoracic aorta non-dilated. Lymph nodes: Within normal limits. Soft tissues: Unremarkable. Bones:Within normal limits for the patient's age. Bones are osteopenic. There are multiple stable wedge-shaped deformities again seen throughout the thoracic and lumbar spine. ABDOMEN: Liver: Normal density. No measurable mass. Portal, Superior Mesenteric, and Splenic Veins: Unremarkable. Gallbladder and Biliary Tract: No radiodense calculus or dilation. Pancreas: Normal density, no abnormal calcifications or inflammatory process. Spleen: Normal. Adrenals: No masses seen. Kidneys: Normal size, contour and axis. There is no evidence of obstructive uropathy. No masses seen. Abdominal Aorta: Abdominal portion non-dilated. Bowel: No obstruction or bowel wall thickening. Appendix is unremarkable. Peritoneal Cavity: No ascites, collection or mesenteric inflammatory response. No free air. Lymph Nodes: Within normal limits. Bones: Within normal limits for the patient's age. Soft Tissues: Unremarkable. PELVIS: Bladder: There is a Tsang catheter in the urinary bladder. The urinary bladder is grossly unremarkable. There is air seen in the urinary bladder likely reflecting the instrumentation. Reproductive Organs: Unremarkable as visualized. Lymph Nodes: Within normal limits. Bones: There is again seen a sideplate and screws transfixing the old left hemipelvic fracture. There are marked degenerative changes seen in the left hip. IMPRESSION: 1. No acute pulmonary process. 2. There is no acute abdominal or pelvic process identified. 3. The preliminary [facility] report was reviewed. RADIATION DOSE DELIVERED: 1,582.58mGy.cm Total DLP DATA REPOSITORY: All CT scans at this facility are submitted to the National Radiology Data Registry (NRDR) Dose Index Registry (DIR) with the [employer] (ACR). RADIATION OPTIMIZATION: All CT scans at this facility use at least one of these dose optimization techniques: automated exposure control; mA and/or kV adjustment per patient size (includes targeted exams where dose is matched to clinical indication); or iterative reconstruction.
--- NOTE | 2025-06-24 23:11 | DI.[facility]_ITS ---
PROCEDURE INFORMATION: Exam: CT Chest With Contrast; Diagnostic Exam date and time: 06/24/2025 10:22 PM Age: 35 years old Clinical indication: Other: Hypothermia/hypotensive unknown etiology; Prior surgery; Surgery date: 6+ months; Surgery type: Pelvis repair TECHNIQUE: Imaging protocol: Diagnostic computed tomography of the chest with contrast. 3D rendering (Not supervised by radiologist): MIP and/or 3D reconstructed images were created by the technologist. Radiation optimization: All CT scans at this facility use at least one of these dose optimization techniques: automated exposure control; mA and/or kV adjustment per patient size (includes targeted exams where dose is matched to clinical indication); or iterative reconstruction. Contrast material: [id number]; Contrast volume: 100 ml; Contrast route: INTRAVENOUS (IV); COMPARISON: CR XR PORTABLE CHEST AP 04/01/2025 4:02 PM FINDINGS: Limitations: The examination is motion limited. Lungs: The lungs are clear. Pleural spaces: Unremarkable. No pneumothorax. No pleural effusion. Heart: Heart is normal size. No pericardial effusion. Lymph nodes: No enlarged lymph nodes. Vasculature: Unremarkable. No aortic aneurysm. Bones/joints: No acute fracture. Diffuse compression deformities throughout the thoracic spine are unchanged from the 2019 CT. Soft tissues: Unremarkable. IMPRESSION: No acute pulmonary findings. PROCEDURE INFORMATION: Exam: CT Abdomen And Pelvis With Contrast Exam date and time: 06/24/2025 10:22 PM Age: 35 years old Clinical indication: Other: Hypothermia/hypotensive unknown etiology; Prior surgery; Surgery date: 6+ months; Surgery type: Pelvis repair TECHNIQUE: Imaging protocol: Computed tomography of the abdomen and pelvis with contrast. 3D rendering (Not supervised by radiologist): MIP and/or 3D reconstructed images were created by the technologist. Radiation optimization: All CT scans at this facility use at least one of these dose optimization techniques: automated exposure control; mA and/or kV adjustment per patient size (includes targeted exams where dose is matched to clinical indication); or iterative reconstruction. Contrast material: [id number]; Contrast volume: 100 ml; Contrast route: INTRAVENOUS (IV); COMPARISON: CT ABDOMEN PELVIS W 08/07/2019 11:34 PM FINDINGS: Liver: The liver has a normal appearance. Gallbladder and biliary ducts: The gallbladder is unremarkable. No biliary ductal dilatation. Pancreas: The pancreas demonstrates normal size. No pancreatic ductal dilatation. Spleen: The spleen demonstrates normal size. Adrenal glands: The adrenal glands have a normal appearance. Kidneys and ureters: The kidneys are normal in size. No hydronephrosis. No hydroureter or ureterolithiasis. Stomach and bowel: The bowel demonstrates overall normal caliber and wall thickness. Appendix: The appendix is thin walled. Intraperitoneal space: Unremarkable. No free air. No significant fluid collection. Vasculature: The IVC and aorta have a normal appearance. Lymph nodes: No enlarged lymph nodes. Urinary bladder: A Tsang catheter is present in the bladder is partially decompressed. Trace gas is present in the bladder presumably secondary to catheterization. Reproductive: Unremarkable as visualized. Bones/joints: There are diffuse superior and inferior endplate deformities throughout the visualized thoracolumbar spine. Findings have a similar appearance to the comparison CT dated 08/07/2019.. Patient is status post left pelvic ORIF. Soft tissues: Unremarkable. IMPRESSION: 1. No acute intra-abdominal findings. 2. Normal appendix. 3. Diffuse compression deformities throughout the thoracolumbar suggesting fish vertebra. Does this patient has a history of sickle cell disease? Dictated and Authenticated by: Mandy Morgan MD. Orderin Louis Sy MD
[2025-06-25] VITALS (41 sets, daily range): BP systolic 100–129; BP diastolic 61–78; PULSE 69–143; RESP 9–28; TEMP 36.2–37.7; O2SAT 94–98
--- NOTE | 2025-06-25 00:18 | W.PM.HP.N ---
Date of service: 06/25/25 Time of Service: 00:18 Assessment and Plan Assessment and plan (1) Hypothermia: Status: Acute Assessment and plan: Exact etiology is unknown. The patient was given a stress dose of steroids in the ED and will continue with his medications including his steroids. Patient does not appear to have an infection. As mentioned in the HPI this could be a side effect of his Zyprexa and this will be held at least temporarily. Continue with vitals every shift and as needed. (2) Bradycardia: Status: Acute Assessment and plan: Is bradycardic at the due to his hypothermia. Now that his temperature has improved his bradycardia has essentially resolved. Will continue to monitor. (3) Hyponatremia: Status: Acute Assessment and plan: Patient does have a history of hyponatremia and is on desmopressin. Will check Posm/Sosm/Nicky for completeness. Recheck labs in the AM. (4) Panhypopituitarism: Status: Chronic Assessment and plan: As mentioned in HPI, the patient did have a surgical complication leading to this disorder. Continue with his home medications including his steroids. (5) Urinary retention with incomplete bladder emptying: Status: Acute Assessment and plan: Patient does have a Morse placed in the ED with good urine output maintain Morse throughout the night. (6) Cortical blindness: Status: Chronic Assessment and plan: Noted (7) Seizures: Status: Chronic Assessment and plan: Continue with his home medications including divalproex 500 mg p.o. twice daily. (8) Mood disorder: Assessment and plan: Patient recently had his Zyprexa increased and as mentioned above this could be the reason for his new episode of hypothermia. Zyprexa was increased 3 days ago. Will hold for now but most likely will need reintroduction prior or shortly after discharge. (9) Hypothyroidism: Assessment and plan: Will check a TSH level as this can cause bradycardia as well. Will otherwise continue with his home meds dose. (10) Anemia, iron deficiency: Assessment and plan: Patient does have a low MCV and I would consider outpatient workup with PCP. (11) Hemiplegia: Assessment and plan: Noted (12) H/O brain surgery: Assessment and plan: Noted (13) Hypokalemia: Status: Acute Assessment and plan: Will replace check a mag level. History of Present Illness History of Present Illness Chief Complaint: hypothermia Narrative: Mr Burgos is a 35-year-old gentleman with a very complicated past medical history. The patient is nonverbal so the history is through chart review, discussion with his attending, and discussion with the ED physician. This is an unfortunate young man who was diagnosed with craniopharyngioma at approximately 12 years old. The patient was having visual difficulties as well as headaches which initiated the workup. 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 The patient is capable of multiple of his ADLs including feeding himself, washing himself, but does have 24-hour attendants. Patient is blind in and does suffer from being nonverbal. Yesterday when one of his caregivers was leaving at the end of her shift she went to give him a hug and he was noted to be quite cold. At that time EMS was activated and he was noted to have a temperature approximately 93 ?F. The patient was subsequently seen in the ED where he had a workup including radiographs, lab work, EKG, and cultures done. His lab work did show hyponatremia which is chronic for which he takes desmopressin for. Sodium level was 125. Glucose levels in normal limits. His white count was mildly depressed at 3.08 and his H&H was 12 and 36 respectively. MCV was decreased at 77. His EKG did show some Fischer waves most notably in lead II. CT of his chest abdomen and pelvis did not show any acute pathological processes. Patient was noted to have mild hypokalemia. While he was in the ED he was put on a Marianna hugger and improved in regards to his temperature. Patient was also noted to be bradycardic while in the ED with some heart rates being as low as the high 30s. Upon my discussion with the caregiver they state that his mental status had returned to baseline. I was asked to admit the patient for overnight observation secondary to his hypothermia, bradycardia, and hyponatremia. Of note, the patient recently had his Zyprexa increased due to some behavioral issues. Per my discussion with Dr. Myers who was our ED physician, his research showed that Zyprexa can cause hyporthermia although usually it is associated with hyperthermia. Review of Systems Narrative: obtained through discussion with attendant who was at bedside [facility] All Active Problems (Updated 06/25/25 @ 00:41 by Yossi Meneses MD) Hyponatremia (Acute) Bradycardia (Acute) Hypokalemia (Acute) Hypothermia (Acute) Hyponatremia (Acute) Hypothermia not due to cold exposure (Acute) Schwannoma of cranial nerve (Acute) Picking own skin (Acute) Abrasion (Acute) Abscess (Acute ~07/19/24) Right side upper thigh (? 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) Constipation (Chronic) Leg cramps (Chronic) Insomnia (Chronic) GERD (gastroesophageal reflux disease) (Chronic) Seizures (Chronic) TBI (traumatic brain injury) (Chronic) Medical History Chronic excoriation Furuncle of left axilla Hx of benign neoplasm of 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 osteoporosis Contracture of joint Pruritic disorder Steatosis of liver Gastritis Optic atrophy Hemiplegia Speech and language disorder Trichotillomania Restlessness and agitation Anemia, iron deficiency Obesity Hypo-osmolality and hyponatremia Diabetes Hypopituitarism Hypothyroidism History of pica 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 Cortical blindness Mood disorder Osteoporosis Hypertriglyceridemia Urinary incontinence H/O secondary hypogonadism Hemiparesis, left History of craniopharyngioma Poor dentition Hypocalcemia Elevated liver enzymes Urinary retention Hx of fracture of pelvis 2018 s/s seizure CVA (cerebral vascular accident) post-surgical Surgical History H/O brain surgery right craniotomy for craniopharyngioma Family History Mother Renal failure syndrome Social History Smoking/Tobacco Use Status: Never Smoking risk assessment performed?: Yes Alcohol Intake: never Drug use: Never Substance use type: does not use Household members: caregiver Housing: assisted living facility current occupation: Disabled In current or past relationships, have you been: other Do you feel safe at home: Yes Do you feel safe in your relationship?: Yes Meds Allergies and Home Medications Allergies Allergy/AdvReac Type Severity Reaction Status Date / Time gemfibrozil (From Lopid) AdvReac Unknown Other (See Unverified 06/24/25 22:13 Comment) Home Medications ?Medication ?Instructions ?Recorded ?Confirmed ?Type desmopressin 0.1 mg tablet 0.1 mg PO QAM 09/09/18 06/24/25 History desmopressin 0.1 mg tablet 0.15 mg PO QPM 10/06/19 06/24/25 History levothyroxine 200 mcg capsule 200 mcg PO DAILY 02/19/24 06/24/25 History cholecalciferol (vitamin D3) 25 25 mcg PO DAILY 08/03/24 06/24/25 History mcg (1,000 unit) capsule zonisamide 100 mg capsule 400 mg (4 x 100 mg) PO QPM #360 01/12/25 06/24/25 Rx caps alendronate 70 mg tablet 70 mg PO QWEEK 03/08/25 06/24/25 History baclofen 5 mg tablet 15 mg PO TID 03/08/25 06/24/25 History divalproex 500 mg tablet,delayed 500 mg PO BID 03/08/25 06/24/25 History release tasimelteon 20 mg capsule 20 mg PO HS 03/08/25 06/24/25 History gabapentin 300 mg capsule 300 mg PO QHS PRN 04/01/25 06/24/25 History calcium carbonate 500 mg PO DAILY 06/24/25 06/24/25 History hydrocortisone 10 mg tablet 10 mg PO .[id number] 06/24/25 06/24/25 History hydrocortisone 10 mg tablet 5 mg PO QAM 06/24/25 06/24/25 History (Cortef) hydrocortisone 20 mg tablet 20 mg PO DAILY 06/24/25 06/24/25 History (Cortef) levothyroxine 100 mcg capsule 100 mcg PO .COMPLEX 06/24/25 06/24/25 History olanzapine 15 mg tablet 30 mg PO DAILY 06/24/25 06/24/25 History Exam Narrative Exam Narrative: heent ncat mmm neck no lad no jvd cv rrr no mrg lungs ctab no amu abd sntndbsa ext no cceb gu morse in place neuro can not be completely assessed 2/2 underlying condition. Responds to verbal stimuli apppropriately Results Labs 06/24/25 20:28 06/24/25 20:28 Labs: Laboratory Results - last 24 hr 06/24/25 06/24/25 06/24/25 20:27 20:28 20:35 WBC 3.08 L RBC 4.68 Hgb 12.4 L Hct 35.8 L MCV 77 L MCH 26.5 L MCHC 34.6 RDW 13.6 Plt Count 152 MPV 8.9 Immature Gran % 1.0 Neutrophils % 43.5 Lymphocytes % 38.6 Monocytes % 14.3 Eosinophils % 2.3 Basophils % 0.3 Nucleated RBC % 0.0 Absolute Neutrophils 1.34 Absolute Lymphocytes 1.19 L Absolute Monocytes 0.44 Absolute Eosinophils 0.07 Absolute Basophils 0.01 VBG pH 7.32 VBG pCO2 52 H VBG pO2 27 VBG HCO3 27 VBG Total CO2 25 VBG O2 Saturation 42 VBG Base Excess 1 VBG Lactate 1.4 Sodium 125 L Potassium 3.4 L Chloride 90 L Carbon Dioxide 26.2 Anion Gap 8.7 BUN 15 Creatinine 0.68 L Est GFR (CKD-EPI 2020) 132.68 Glucose 77 Calcium 8.6 Magnesium 1.7 Total Bilirubin 0.6 AST 17 ALT 22 Alkaline Phosphatase 92 Total Protein 7.3 Albumin 4.3 Lipase 19 Urine Color Urine Clarity Urine pH Ur Specific [place] Urine Protein Urine Ketones Urine Blood Urine Nitrite Urine Bilirubin Urine Urobilinogen Ur Leukocyte Esterase Urine Glucose COVID-19 Source Nasopharynx SARS-CoV-2 (PCR) Negative Influenza Type A (PCR) Negative Influenza Type B (PCR) Negative RSV (PCR) Negative 06/24/25 21:37 WBC RBC Hgb Hct MCV MCH MCHC RDW Plt Count MPV Immature Gran % Neutrophils % Lymphocytes % Monocytes % Eosinophils % Basophils % Nucleated RBC % Absolute Neutrophils Absolute Lymphocytes Absolute Monocytes Absolute Eosinophils Absolute Basophils VBG pH VBG pCO2 VBG pO2 VBG HCO3 VBG Total CO2 VBG O2 Saturation VBG Base Excess VBG Lactate Sodium Potassium Chloride Carbon Dioxide Anion Gap BUN Creatinine Est GFR (CKD-EPI 2020) Glucose Calcium Magnesium Total Bilirubin AST ALT Alkaline Phosphatase Total Protein Albumin Lipase Urine Color Yellow Urine Clarity Clear Urine pH 7.0 Ur Specific [place] 1.020 Urine Protein Negative Urine Ketones Negative Urine Blood Negative Urine Nitrite Negative Urine Bilirubin Negative Urine Urobilinogen 0.2 Ur Leukocyte Esterase Negative Urine Glucose Negative COVID-19 Source SARS-CoV-2 (PCR) Influenza Type A (PCR) Influenza Type B (PCR) RSV (PCR) Last Vital Signs Temp 34.2 C L 06/24/25 21:32 Pulse 64 06/24/25 23:50 Resp 11 L 06/24/25 23:50 BP 121/96 H 06/24/25 23:46 Pulse Ox 94 06/24/25 23:50 VTE Prohylaxis Risk Level: Moderate/High Risk Contraindications: None Prophylaxis: Pharmacologic Time Spent Time spent with Patient: >75 minutes Time was spent: preparing to see the patient(eg.review tests), obtaining and/or reviewing separately otained hiistory, ordering medications,tests, procedures, referring, communicating with other health patient care coordinator, indepentently interpreting results, counseling the patient and care coordination
[2025-06-25] MEDS: Levothyroxine 100 MCG TAB 200 MCG PO (06:07)
--- NOTE | 2025-06-25 06:18 | W.PC.ACHO ---
Registration Status: ADM WENDY Primary Language: Preferred Language: German ED Information & Data Chief Complaint AMS/LOC 06/24/25 21:13 Chief Complaint AMS/LOC 06/24/25 20:04 Triage Note pt from [facility], had low 06/24/25 20:04 temp today 93.0, more sedated than usual, had recent med change olanzapine uppped to 30mg in the last few days Medical / Surgical History (Last Reviewed 03/08/25 @ 10:45 by Ladonna Garza MD) Chronic excoriation Furuncle of left axilla Hx of benign neoplasm of 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 osteoporosis Contracture of joint Pruritic disorder Steatosis of liver Gastritis Optic atrophy Hemiplegia Speech and language disorder Trichotillomania Restlessness and agitation Anemia, iron deficiency Obesity Hypo-osmolality and hyponatremia Diabetes Hypopituitarism Hypothyroidism History of pica 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 Cortical blindness Mood disorder Osteoporosis Hypertriglyceridemia Urinary incontinence H/O secondary hypogonadism Hemiparesis, left History of craniopharyngioma Poor dentition Hypocalcemia Elevated liver enzymes Urinary retention Hx of fracture of pelvis CVA (cerebral vascular accident) (Last Reviewed 03/08/25 @ 10:45 by Ladonna Garza MD) H/O brain surgery Most Recent Vital Signs Temperature 36.8 C 06/25/25 01:41 Temperature Source Temporal Artery Scan 06/25/25 01:36 Pulse 91 H 06/25/25 01:36 Pulse 82 06/25/25 01:00 Respiratory Rate 24 06/25/25 01:36 Respiratory Effort Normal 06/25/25 01:36 Respiratory Depth Normal 06/25/25 01:36 Respiratory Pattern Tachypnea 06/25/25 01:36 Blood Pressure 107/68 06/25/25 01:36 Blood Pressure Mean 81 06/25/25 01:36 Blood Pressure Position Supine 06/24/25 20:04 Pulse Oximetry 96 06/25/25 01:36 Oxygen Delivery Method Room Air 06/25/25 01:36 Oxygen Flow Rate 0 06/25/25 01:36 Comment Vitals failed capture, input manually; patient's temperature until this point has been taken rectal, exposed to room air with no coverings to head produces an appropriate temperature as of this time and patient's activity both physically and mentally has been elevated/improved closer to baseline levels. Will utilize temporal scan for time being unless hypothermic symptoms return. 06/25/25 01:36 Allergies gemfibrozil (From Lopid) Adverse Reaction (Unknown, Unverified 06/24/25 22:13) Other (See Comment) Active Medications Generic Name Dose Route Start Last Admin Trade Name Freq PRN Reason Stop Dose Admin Iohexol 100 ml 06/24/25 22:45 06/24/25 22:40 Omnipaque 350 Mg/Ml 100 Ml Btl IJ 07/24/25 23:59 100 ml DIRECTED CIRO Administration Levothyroxine Sodium 200 mcg 06/25/25 06:00 06/25/25 06:07 Levothyroxine 100 Mcg Tab PO 200 mcg 0600 CIRO Administration Sodium Chloride 50 ml 06/24/25 22:45 06/24/25 22:42 Normal Saline - Diluent 50 Ml Vial IJ 50 ml DIRECTED CIRO Administration Sodium Chloride 0 ml 06/24/25 22:41 06/24/25 22:42 Normal Saline Flush 10 Ml Syr IVP 10 ml PRN PRN Administration IV IV Catheter Type [Left Forearm Peripheral IV ] IV Catheter Type [Right] Peripheral IV IV Catheter Gauge [Left 20 Forearm] IV Catheter Gauge [Right] 20 Diet Orders Category Date Time Status Regular/Normal [DIET] Nutrition 06/25/25 Breakfast Active Diagnostics 06/25/25 06/24/25 06/24/25 Range/Units 05:35 21:37 20:35 WBC Pending (4.4-10.8) 10^3/uL RBC Pending (4.36-5.78) 10^6/uL Hgb Pending (13.5-17.5) g/dL Hct Pending (40.0-50.0) % MCV Pending (80-95) fL MCH Pending (27.0-33.0) pg MCHC Pending (32.0-36.0) % RDW Pending (11.8-14.1) % Plt Count Pending (130-400) 10^3/uL MPV Pending (8.0-11.0) fL Immature Gran % Pending % Neutrophils % Pending % Lymphocytes % Pending % Monocytes % Pending % Eosinophils % Pending % Basophils % Pending % Nucleated RBC % (0.0-0.3) % Absolute Neutrophils Pending (1.2-6.7) 10^3/uL Absolute Lymphocytes Pending (1.2-3.4) 10^3/uL Absolute Monocytes Pending (0.1-0.8) 10^3/uL Absolute Eosinophils Pending (0.0-0.7) 10^3/uL Absolute Basophils Pending (0.0-0.2) 10^3/uL VBG pH (7.31-7.41) VBG pCO2 (41-51) mmHg VBG pO2 mmHg VBG HCO3 (23-28) mmol/L VBG Total CO2 (24-29) mmol/L VBG O2 Saturation % VBG Base Excess (-2-3) mmol/L VBG Lactate (<or=2.0) mmol/L Sodium Pending (136-145) mmol/L Potassium Pending (3.5-5.1) mmol/L Chloride Pending (98-107) mmol/L Carbon Dioxide Pending (20.0-31.0) mmol/L Anion Gap Pending (3-11) mmol/L BUN Pending (9-23) mg/dL Creatinine Pending (0.73-1.18) mg/dL Est GFR (CKD-EPI 2020) Pending (mL/min/1.73m2) Glucose Pending (74-106) mg/dL Serum Osmolality Pending Calcium Pending (8.3-10.6) mg/dL Magnesium Pending (1.6-2.6) mg/dL Total Bilirubin Pending (0.2-1.2) mg/dL AST Pending (<34) U/L ALT Pending (10-49) U/L Alkaline Phosphatase Pending (46-116) U/L Total Protein Pending (5.7-8.2) g/dL Albumin Pending (3.2-5.0) g/dL Lipase (<53) U/L TSH Pending Urine Color Yellow (Yellow) Urine Clarity Clear (Clear) Urine pH 7.0 (5-8) Ur Specific [place] 1.020 (1.005-1.025) Urine Protein Negative (Neg-Trace) mg/dL Urine Ketones Negative (Negative) mg/dL Urine Blood Negative (Negative) Urine Nitrite Negative (Negative) Urine Bilirubin Negative (Negative) Urine Urobilinogen 0.2 (Up to 0.2) mg/dL Ur Leukocyte Esterase Negative (Negative) Urine Glucose Negative (Negative) mg/dL COVID-19 Source Nasopharynx SARS-CoV-2 (PCR) Negative (Negative) Influenza Type A (PCR) Negative (Negative) Influenza Type B (PCR) Negative (Negative) RSV (PCR) Negative (Negative) 06/24/25 06/24/25 Range/Units 20:28 20:27 WBC 3.08 L (4.4-10.8) 10^3/uL RBC 4.68 (4.36-5.78) 10^6/uL Hgb 12.4 L (13.5-17.5) g/dL Hct 35.8 L (40.0-50.0) % MCV 77 L (80-95) fL MCH 26.5 L (27.0-33.0) pg MCHC 34.6 (32.0-36.0) % RDW 13.6 (11.8-14.1) % Plt Count 152 (130-400) 10^3/uL MPV 8.9 (8.0-11.0) fL Immature Gran % 1.0 % Neutrophils % 43.5 % Lymphocytes % 38.6 % Monocytes % 14.3 % Eosinophils % 2.3 % Basophils % 0.3 % Nucleated RBC % 0.0 (0.0-0.3) % Absolute Neutrophils 1.34 (1.2-6.7) 10^3/uL Absolute Lymphocytes 1.19 L (1.2-3.4) 10^3/uL Absolute Monocytes 0.44 (0.1-0.8) 10^3/uL Absolute Eosinophils 0.07 (0.0-0.7) 10^3/uL Absolute Basophils 0.01 (0.0-0.2) 10^3/uL VBG pH 7.32 (7.31-7.41) VBG pCO2 52 H (41-51) mmHg VBG pO2 27 mmHg VBG HCO3 27 (23-28) mmol/L VBG Total CO2 25 (24-29) mmol/L VBG O2 Saturation 42 % VBG Base Excess 1 (-2-3) mmol/L VBG Lactate 1.4 (<or=2.0) mmol/L Sodium 125 L (136-145) mmol/L Potassium 3.4 L (3.5-5.1) mmol/L Chloride 90 L (98-107) mmol/L Carbon Dioxide 26.2 (20.0-31.0) mmol/L Anion Gap 8.7 (3-11) mmol/L BUN 15 (9-23) mg/dL Creatinine 0.68 L (0.73-1.18) mg/dL Est GFR (CKD-EPI 2020) 132.68 (mL/min/1.73m2) Glucose 77 (74-106) mg/dL Serum Osmolality Calcium 8.6 (8.3-10.6) mg/dL Magnesium 1.7 (1.6-2.6) mg/dL Total Bilirubin 0.6 (0.2-1.2) mg/dL AST 17 (<34) U/L ALT 22 (10-49) U/L Alkaline Phosphatase 92 (46-116) U/L Total Protein 7.3 (5.7-8.2) g/dL Albumin 4.3 (3.2-5.0) g/dL Lipase 19 (<53) U/L TSH Urine Color (Yellow) Urine Clarity (Clear) Urine pH (5-8) Ur Specific [place] (1.005-1.025) Urine Protein (Neg-Trace) mg/dL Urine Ketones (Negative) mg/dL Urine Blood (Negative) Urine Nitrite (Negative) Urine Bilirubin (Negative) Urine Urobilinogen (Up to 0.2) mg/dL Ur Leukocyte Esterase (Negative) Urine Glucose (Negative) mg/dL COVID-19 Source SARS-CoV-2 (PCR) (Negative) Influenza Type A (PCR) (Negative) Influenza Type B (PCR) (Negative) RSV (PCR) (Negative) 06/24/25 20:35 Blood Culture - Pending Blood 06/24/25 20:28 Blood Culture - Pending Blood [id number] Documentation Fingerstick Glucose Start: 06/24/25 20:20 Freq: Status: Complete Protocol: Activity Type Activity Date Activity User E-sign Co-sign Detail Recorded Client Recorded Date Recorded By Document 06/24/25 20:19 ANGY DAEMON(5) [id number] 06/24/25 20:20 BKG DAEMON(6) Fingerstick Glucose Start: 06/24/25 20:27 Freq: .Stat Status: Active Protocol: Activity Type Activity Date Activity User E-sign Co-sign Detail Recorded Client Recorded Date Recorded By Document 06/25/25 01:05 STACYVan QUINTEROS(7) [id number] 06/25/25 01:06 STACYVan QUINTEROS(8) Intake and Output - 24 Hour Total 06/24/25 19:52 thru 06/25/25 06:13 Intake Total 1999 Output Total 7130 Balance -5130 Weight 99 kg Intake: IV 1999 Output: Urine 7130 Other: Urine Color Pale Urine Appearance Clear Urinary Catheter Urinary Catheter Date of 06/24/25 Insertion [Coude] Time of insertion [Coude] 21:39 Falls Risk Assessment History of Falls Previous History 06/25/25 01:36 Contributing Factors Impairments 06/25/25 01:36 Ambulatory Aids Uses ambulatory device + 06/25/25 01:36 Tubes/Lines With any additional score 06/25/25 01:36 Gait Evaluation W/any additional score 06/25/25 01:36 Cognition Cognitive impairment 06/25/25 01:36 Fall Total Score 103 06/25/25 01:36 Level of Risk Maximum Risk 06/25/25 01:36 Problems (Last Reviewed 03/08/25 @ 10:45 by Ladonna Garza MD) Hyponatremia (Acute) Bradycardia (Acute) Hypokalemia (Acute) Hypothermia (Acute) Hyponatremia (Acute) Hypothermia not due to cold exposure (Acute) Urinary retention with incomplete bladder emptying (Acute) Panhypopituitarism (Chronic) Cortical blindness (Chronic) Seizures (Chronic) Attestation Statement: By documenting the first initial, last name, and credentials of the reporting nurse below, both parties acknowledge that all relevant information regarding the patient handoff has been communicated, and that all questions have been addressed to ensure continuity and safety of care. Additional Patient Information/Comments: Report Received From: Addie Pope RN
[2025-06-25 06:41] LABS: Abs Immature Grans 0.01 10^3/uL (0.0-0.06); HCT 37.6 % (40.0-50.0); HGB 12.9 g/dL (13.5-17.5); Immature Grans % 0.5 %; MCH 26.2 pg (27.0-33.0); MCHC 34.3 % (32.0-36.0); MCV 76 fL (80-95); MPV 9.5 fL (8.0-11.0); Platelet Count 200 10^3/uL (130-400); RBC 4.93 10^6/uL (4.36-5.78); RDW 13.7 % (11.8-14.1); RDW-SD 36.9 fL; WBC 2.08 10^3/uL (4.4-10.8)
[2025-06-25 07:03] LABS: Magnesium 2.0 mg/dL (1.6-2.6)
[2025-06-25 07:07] LABS: Sodium, Urine 37 mmol/L
[2025-06-25 07:14] LABS: ALT 22 U/L (10-49); AST 15 U/L (<34); Albumin 4.2 g/dL (3.2-5.0); Alkaline Phosphatase 91 U/L (46-116); Anion Gap 12.3 mmol/L (3-11); BUN 12 mg/dL (9-23); Bilirubin, Total 0.4 mg/dL (0.2-1.2); CO2 22.7 mmol/L (20.0-31.0); Calcium 9.4 mg/dL (8.3-10.6); Chloride 107 mmol/L (98-107); Glucose 82 mg/dL (74-106); Potassium 4.3 mmol/L (3.5-5.1); Sodium 142 mmol/L (136-145); Total Protein 7.5 g/dL (5.7-8.2)
[2025-06-25 07:46] LABS: TSH (W/Ref FT4) < 0.01 uIU/mL (0.55-4.78)
[2025-06-25] MEDS: Enoxaparin 40 MG/0.4 ML SYR SC (09:42)
[2025-06-25] MEDS: Normal Saline Flush 10 ML SYR IVP ×3 (09:43→20:18)
[2025-06-25] MEDS: Hydrocortisone 10 MG TAB 20 MG PO (09:45)
[2025-06-25] MEDS: POTASSIUM CHLORIDE 20 MEQ, POTASSIUM CHLORIDE 10 MEQ 30 MEQ PO ×2 (09:45→19:58)
[2025-06-25] MEDS: Hydrocortisone 10 MG TAB 5 MG PO (09:45)
[2025-06-25] MEDS: Baclofen 10 MG TAB 15 MG PO ×3 (09:45→19:59)
[2025-06-25] MEDS: Cholecalciferol (Vitamin D3) 1,000 UNIT TAB 1000 UNITS PO (09:45)
[2025-06-25] MEDS: Calcium Carbonate *TUMS* 500 MG CHEW PO (09:46)
[2025-06-25] MEDS: Desmopressin 0.2 MG TAB 0.1 MG PO ×2 (09:47→19:59)
[2025-06-25] MEDS: Divalproex 500 MG TABEC PO ×2 (09:47→19:58)
--- NOTE | 2025-06-25 09:50 | PDOC.CMIN ---
Date of service: 06/25/25 Time of Service: 09:51 Care Management Initial Assmt Initial Assessment Reason for Hospitalization: hypothermia Functional Status/Living Situation Patient Presentation: Miguel Angel was walking around the ICU with support from his primary RN and his caregivers when CM met with him. Miguel Angel has limited ability to communicate verbally, but was responding to verbal cues well. CM spoke to his caregivers, who confirmed that once Miguel Angel is ready for discharge, they will transport him home with their van, and will resume caretaking responsibilities. Miguel Angel lives in a fdc with 24/7 care provided. His sister, Betitna, is his guardian (document on file). CM spoke with Bettina over the phone, who stated that she received an update from his primary RN. She expressed concern and frustration due to not being contacted when Miguel Angel was admitted overnight. She did know that he was at [facility], from the report of Miguel Angel's caregivers. CM added guardibarbie on file to Miguel Angel's chart (special indicator) in order for transparency and clarity on his medical record. Per MD, Miguel Angel will likely return home today vs tomorrow; Bettina was happy to have an update and agreeable to this plan. CM requested that MD reach out to Bettina prior to Miguel Angel's discharge to discuss his plan of care. CM will continue to follow. [facility] Residence: [facility] Resides with: Other (27/01 caregivers) Caregiver/Guardian: GuardianBettina (Aubrey) Before Has 247 caregivers Employment Status: Disabled Instrumental Activities of Daily Living (ADLs): Requires support Medications Medication Management: No Issues/Barriers identified (medications managed by caregivers) Physical Functioning/Mobility Assistive Device: W/C, van, elevator access, handicap accessible home Advance Directives Advance Directives: Do you have an Advance Directive: N 06/08/25, 07:30 AD On File at [facility]: N 06/08/25, 07:30 Date Asked 06/08/25 06/08/25, 10:47 AD Date Reviewed COLST On File at [facility] COLST Date Scanned Code Status Resuscitation Status Full Code Insurance Coverage/Financial Issues Insurance: ALFA (nursing home) Care Team Visit Care Team Role Provider Type Jimbo More Primary Care Provider NON-[facility] STAFF PHYSICIAN Yossi Myers MD Emergency Provider [facility] STAFF PHYSICIAN Yossi Meneses MD Admit Provider [facility] STAFF PHYSICIAN Attending Provider Discharge Potential Discharge Needs: PCP F/U Appt Anticipated Barriers to Discharge: None Identified Patient/Family Education Needs: Review discharge instructions, discuss Ask Me Three Transportation: Facility Transport (Lives in fdc with access to a W/C van) Plan: Anticipate Miguel Angel will return home with a resumption of his 24 H caregivers. His caregiver will transport him home via facility van. He will follow up with his PCP, community supports, and his discharge plan of care. CM will continue to follow. Social Determinants of Health Screening Will the Patient Participate in the Screening?: Unable to obtain Comments: Patient is resident of a [facility] facility. PFSH All Active Problems (Updated 06/25/25 @ 15:10 by Ren Vaz) Tachycardia (Acute) Hyponatremia (Acute) Bradycardia (Acute) Hypokalemia (Acute) Hypothermia (Acute) Hyponatremia (Acute) Hypothermia not due to cold exposure (Acute) Schwannoma of cranial nerve (Acute) Picking own skin (Acute) Abrasion (Acute) Abscess (Acute ~07/19/24) Right side upper thigh (? 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) Constipation (Chronic) Leg cramps (Chronic) Insomnia (Chronic) GERD (gastroesophageal reflux disease) (Chronic) Seizures (Chronic) TBI (traumatic brain injury) (Chronic) Medical History Chronic excoriation Furuncle of left axilla Hx of benign neoplasm of 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 osteoporosis Contracture of joint Pruritic disorder Steatosis of liver Gastritis Optic atrophy Hemiplegia Speech and language disorder Trichotillomania Restlessness and agitation Anemia, iron deficiency Obesity Hypo-osmolality and hyponatremia Diabetes Hypopituitarism Hypothyroidism History of pica 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 Cortical blindness Mood disorder Osteoporosis Hypertriglyceridemia Urinary incontinence H/O secondary hypogonadism Hemiparesis, left History of craniopharyngioma Poor dentition Hypocalcemia Elevated liver enzymes Urinary retention Hx of fracture of pelvis 2017 s/s seizure CVA (cerebral vascular accident) post-surgical Surgical History H/O brain surgery right craniotomy for craniopharyngioma Family History Mother Renal failure syndrome Social History Smoking/Tobacco Use Status: Never Smoking risk assessment performed?: Yes Alcohol Intake: never Drug use: Never Substance use type: does not use Household members: caregiver Housing: assisted living facility current occupation: Disabled In current or past relationships, have you been: other Do you feel safe at home: Yes Do you feel safe in your relationship?: Yes
[2025-06-25] MEDS: Hydrocortisone 10 MG TAB PO (13:25)
--- NOTE | 2025-06-25 15:02 | PGE_ITS ---
Date of Service Date of service: 06/25/25 Time of Service: 15:03 Assessment and Plan Assessment and plan (1) Hypothermia: Status: Acute Assessment and plan: Exact etiology is unknown. Occurred after uptitration of olanzapine to 30mg, and this is a known side effect given dopamine and 5-HT2 serotonin antagonism. He is likely more susceptible to these effects with his abnormal HPA axis. No signs of focal infection He was given a stress dose of steroids in the ED, now on his regular oral doses and tempurature has stabilized. Resume olanzapine at lower dose tonght and monitor. (2) Tachycardia: Status: Acute Assessment and plan: Low on admission with hypothermia, now high without a clear cause. Perhaps some rebound? Perhaps overduirusis after morse? No signs infection or PE. 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 He received I liter of fluids in ED and has put out 7 liters since midnight. Posm/Sosm/Nicky pending. Normalized on morning labs. Will resume his home dosing in AM and PM (PM was cancelled) and monitor (4) Panhypopituitarism: Status: Chronic Assessment and plan: post surgical, chronic. Continue with his home medications including his steroids. TSH low c/w central hypothyroid. Ft4 high, but recent T4 and T3 were normal. (5) Urinary retention with incomplete bladder emptying: Status: Acute Assessment and plan: Patient had a Morse placed in the ED, though documented as only having 200ml after morse placed. He has had >7L urine output since then. Will remove and monitor post-voids (6) Seizures: Status: Chronic Assessment and plan: Continue with his home medications including divalproex 500 mg p.o. twice daily. (7) Mood disorder: Assessment and plan: Monitor on reduced dose of olanzapine. Caretakers will discuss alternatives with psychiatry at follow up 06/27 (8) Hypothyroidism: Assessment and plan: Will check a TSH level as this can cause bradycardia as well. Will otherwise continue with his home meds dose. (9) Anemia, iron deficiency: Assessment and plan: Patient does have a low MCV, get iron levels with morning labs. (10) Hypokalemia: Status: Acute Assessment and plan: normalized, monitor in AM Subjective Subjective Patient reports: feels better and tolerating a regular diet; denies diarrhea, vomiting, shortness of breath or fever Interval history since last seen: He denies pain or other complaints. He looks better per his caretakers. He denies chest pain or dizziness. Per caretakers this happened in setting of titrating up olanzapine from 20mg to 30mg. Exam Narrative Exam Narrative: GEN: Alert, responds to questions with short grunting words. CV: tachycardic in 130s, no m/g Lungs: CTAB, normal effort abd: + BS, soft, NT/ND ext no c/c/e bilaterally neuro: no abormal movement/tremor, non-focal Objective Last Vital Signs Temp 36.7 C 06/25/25 14:17 Pulse 139 H 06/25/25 14:17 Resp 17 06/25/25 13:53 BP 106/73 06/25/25 13:53 Pulse Ox 96 06/25/25 11:17 Laboratory Results - last 24 hr 06/24/25 06/24/25 06/24/25 20:27 20:28 20:35 WBC 3.08 L RBC 4.68 Hgb 12.4 L Hct 35.8 L MCV 77 L MCH 26.5 L MCHC 34.6 RDW 13.6 Plt Count 152 MPV 8.9 Immature Gran % 1.0 Neutrophils % 43.5 Lymphocytes % 38.6 Monocytes % 14.3 Eosinophils % 2.3 Basophils % 0.3 Nucleated RBC % 0.0 Absolute Neutrophils 1.34 Absolute Lymphocytes 1.19 L Absolute Monocytes 0.44 Absolute Eosinophils 0.07 Absolute Basophils 0.01 VBG pH 7.32 VBG pCO2 52 H VBG pO2 27 VBG HCO3 27 VBG Total CO2 25 VBG O2 Saturation 42 VBG Base Excess 1 VBG Lactate 1.4 Sodium 125 L Potassium 3.4 L Chloride 90 L Carbon Dioxide 26.2 Anion Gap 8.7 BUN 15 Creatinine 0.68 L Est GFR (CKD-EPI 2020) 132.68 Glucose 77 Calcium 8.6 Magnesium 1.7 Total Bilirubin 0.6 AST 17 ALT 22 Alkaline Phosphatase 92 Total Protein 7.3 Albumin 4.3 Lipase 19 TSH Free T4 Urine Color Urine Clarity Urine pH Ur Specific [place] Urine Protein Urine Ketones Urine Blood Urine Nitrite Urine Bilirubin Urine Urobilinogen Ur Leukocyte Esterase Ur Random Sodium Urine Glucose COVID-19 Source Nasopharynx SARS-CoV-2 (PCR) Negative Influenza Type A (PCR) Negative Influenza Type B (PCR) Negative RSV (PCR) Negative 06/24/25 06/25/25 06/25/25 21:37 05:15 06:35 WBC 2.08 L RBC 4.93 Hgb 12.9 L Hct 37.6 L MCV 76 L MCH 26.2 L MCHC 34.3 RDW 13.7 Plt Count 200 MPV 9.5 Immature Gran % 0.5 Neutrophils % 57.7 Lymphocytes % 31.7 Monocytes % 9.1 Eosinophils % 0.5 Basophils % 0.5 Nucleated RBC % 0.0 Absolute Neutrophils 1.20 Absolute Lymphocytes 0.66 L Absolute Monocytes 0.19 Absolute Eosinophils 0.01 Absolute Basophils 0.01 VBG pH VBG pCO2 VBG pO2 VBG HCO3 VBG Total CO2 VBG O2 Saturation VBG Base Excess VBG Lactate Sodium 142 D Potassium 4.3 Chloride 107 Carbon Dioxide 22.7 Anion Gap 12.3 H BUN 12 Creatinine 0.72 L Est GFR (CKD-EPI 2020) 124.21 Glucose 82 Calcium 9.4 Magnesium 2.0 Total Bilirubin 0.4 AST 15 ALT 22 Alkaline Phosphatase 91 Total Protein 7.5 Albumin 4.2 Lipase TSH < 0.01 L Free T4 1.91 H Urine Color Yellow Urine Clarity Clear Urine pH 7.0 Ur Specific [place] 1.020 Urine Protein Negative Urine Ketones Negative Urine Blood Negative Urine Nitrite Negative Urine Bilirubin Negative Urine Urobilinogen 0.2 Ur Leukocyte Esterase Negative Ur Random Sodium 37 Urine Glucose Negative COVID-19 Source SARS-CoV-2 (PCR) Influenza Type A (PCR) Influenza Type B (PCR) RSV (PCR) VTE Prohylaxis Risk Level: Moderate/High Risk Contraindications: None Prophylaxis: Pharmacologic Time Spent with Patient Time Spent with Patient: >50 minutes Time was spent: preparing to see the patient(eg.review tests), obtaining and/or reviewing separately otained hiistory, ordering medications,tests, procedures, referring, communicating with other health patient care assistant, indepentently interpreting results, counseling the patient and care coordination
[2025-06-25] MEDS: OLANZapine 10 MG, OLANZapine 5 MG 15 MG PO (19:57)
[2025-06-25] MEDS: Zonisamide 100 MG CAP 400 MG PO (19:58)
[2025-06-25] MEDS: TASIMELTEON 20 MG 1 EACH PO (19:59)
[2025-06-26] VITALS (12 sets, daily range): BP systolic 113; BP diastolic 68; PULSE 49–105; RESP 11–17; TEMP 36.1
[2025-06-26] MEDS: Levothyroxine 100 MCG TAB 200 MCG PO (06:38)
[2025-06-26 06:45] LABS: Iron 36 ug/dL (65-175); Total Iron Binding Capacity 260 ug/dL (250-425); Transferrin Sat 14 % (20-55)
[2025-06-26 06:49] LABS: Anion Gap 11.4 mmol/L (3-11); BUN 18 mg/dL (9-23); CO2 24.6 mmol/L (20.0-31.0); Calcium 8.8 mg/dL (8.3-10.6); Chloride 109 mmol/L (98-107); Glucose 75 mg/dL (74-106); Potassium 3.8 mmol/L (3.5-5.1); Sodium 145 mmol/L (136-145)
[2025-06-26] MEDS: Normal Saline Flush 10 ML SYR IVP (08:18)
[2025-06-26] MEDS: Enoxaparin 40 MG/0.4 ML SYR SC (08:19)
[2025-06-26] MEDS: Hydrocortisone 10 MG TAB 20 MG PO (08:21)
[2025-06-26] MEDS: Hydrocortisone 10 MG TAB 5 MG PO (08:21)
[2025-06-26] MEDS: Baclofen 10 MG TAB 15 MG PO (08:22)
[2025-06-26] MEDS: POTASSIUM CHLORIDE 20 MEQ, POTASSIUM CHLORIDE 10 MEQ 30 MEQ PO (08:23)
[2025-06-26] MEDS: Cholecalciferol (Vitamin D3) 1,000 UNIT TAB 1000 UNITS PO (08:23)
[2025-06-26] MEDS: Desmopressin 0.2 MG TAB 0.1 MG PO (08:23)
[2025-06-26] MEDS: Divalproex 500 MG TABEC PO (08:23)
--- NOTE | 2025-06-26 10:05 | W.PM.DS.N ---
Date of service: 06/26/25 Time of Service: 10:05 DS: Diagnosis Discharge Diagnosis (1) Hypothermia: Status: Acute (2) Tachycardia: Status: Acute (3) Hyponatremia: Status: Acute (4) Panhypopituitarism: Status: Chronic (5) Urinary retention with incomplete bladder emptying: Status: Acute (6) Seizures: Status: Chronic (7) Mood disorder: (8) Hypothyroidism: (9) Anemia, iron deficiency: (10) Hypokalemia: Status: Acute Discharge Plan Disposition Patient Disposition: Home Condition: Stable Discharge Details Reason For Visit: hypothermia Admit Date/Time: 06/25/25 00:11 Admit Provider: Yossi Meneses Attending Provider: Yossi Meneses Primary Care Provider: Jimbo More [facility] 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 He was bradycardic in the low 40s. He was brought to the ED and found to have sodium of 125. Work up for for infection including CT C/A/P and urinalysis was negative. He got 1 liter of LR in the ED and a dose of 100mg hydrocortisone IV. He did not get his vasopressin that first night. He was warmed and observed in the ICU without antibiotic therapy. He was having difficulty urinating and a morse catheter was placed with a documented residual of 200ml. He put out over 7 liters of urine the first 24 hours. His sodium quickly normalized to 142 by the next morning and his temperature remained stable and his bradycardia resolved. He was at his baseline mental status and behavior 06/25 but he was tachycardic to 130s-150s, so it was decided to continue to observe him. By 06/26 AM his pulse was in the 70s and he was eating and drinking normally. The hypothermia occurred in the setting of relatively rapid uptitration of olanzapine, which is known to carry the risk of hypothermia. The olanzapine was held 06/24 and resumed at 15mg 06/25. He has an appointment with his psychiatrist 06/27 to consider further medication changes. I would not recommend pushing the dose of olanzapine, and an alternative agent may make more sense. His desmopressin was restarted 06/25 at 0.1mg BID (rather than 0.1mg in AM and 0.15mg in PM). His sodium on the day of discharge was 145. He was typically in the 130s in the past, but has had both highs and critically low sodiums. His hyponatremia on admission suggests the 2.5mg may be too much, though the acute stress likely contributed to the low sodium as well. After discussion with his guardian, we decided continue the 0.1mg BID but follow sodium closely and if creeping high to resume the higher dose again. Dr. Zaidi, his armored vehicle officer, was copied on this summary. As expected his TSH was undetectable with central hypothyroidism, but his free T4 was high. His recent T3 and T4 were at goal in April, and his tachycardia normalized, so his lT4 therapy was not changed. His hydrocortisone was resumed at his outpatient dosages after the initial dose of IV hydrocortisone the first night. He had a mild microcytic anemia. His transferrin saturation was low at 14%. Oral iron every other day was started. GI work up can be considered as outpatient. His WBC was low, but his ANC was >1000. Repeat CBC w/diff should be done within 1 week to follow. His platelets were low on admission but normalized. Recommendations for Follow Up Recommended tests to be ordered by follow up provider: BMP 1 day, BMP and CBC in 1 week Home Meds and New Rx's Prescriptions: New ferrous sulfate 324 mg (65 mg iron) tablet,delayed release (DR/EC) 324 mg PO Q OTHER DAY Qty: 45 0RF Continued levothyroxine 200 mcg capsule 200 mcg PO DAILY cholecalciferol (vitamin D3) 25 mcg (1,000 unit) capsule 25 mcg PO DAILY alendronate 70 mg tablet 70 mg PO QWEEK divalproex 500 mg tablet,delayed release (DR/EC) 500 mg PO BID tasimelteon 20 mg capsule 20 mg PO HS Rx Instructions: administer at approximately same time(s) each day baclofen 5 mg tablet 15 mg PO TID zonisamide 100 mg capsule 400 mg PO QPM Qty: 360 3RF desmopressin 0.1 mg Tablet 0.1 mg PO QAM gabapentin 300 mg capsule 300 mg PO QHS PRN levothyroxine 100 mcg capsule 100 mcg PO .COMPLEX Rx Instructions: 100 mcg orally Every 7 Days with 200mcg tab; calcium carbonate 500 mg calcium (1,250 mg) tablet,chewable 500 mg PO DAILY hydrocortisone [Cortef] 20 mg tablet 20 mg PO DAILY hydrocortisone [Cortef] 10 MG tablet 5 mg PO QAM hydrocortisone 10 mg tablet 10 mg PO .[id number] Patient Comments: 1300 Changed olanzapine 15 mg tablet 15 mg PO QHS Qty: 30 0RF Rx Instructions: decrease dose desmopressin 0.1 mg tablet 0.1 mg PO QPM Qty: 30 0RF Rx Instructions: decrease evening dose Discharge Instructions Additional Instructions: The lower doses of olanzapine and desmopressin were sent to [place]. Follow up with psychiatry to possibly change the olanzapine Labs should be done tomorrow and in a week. If the sodium is 146 or higher, he should go back to the 1.5mg desmopressin dose in the evening. Stand Alone Forms: Portal Information Referrals: Wilder Zaidi [OSTEOPATHIC DOCTOR, Medicine] Activity:: Activity as Tolerated Equipment/Supplies:: No Equipment Needed Diet:: As Tolerated Discharge Orders Discharge Orders: Discharge Order (Routine); Ordered 06/26/25 Ordered By: Ren Vaz DS: Summary Time Spent with Patient providing and/or coordinating discharge services: Greater than 30 minutes Status at Discharge Functional status at discharge: independent ambulation (with assist) Overall status at discharge: patient is back to baseline Mental Status: other Speech and Movement: speech and movement normal Mood: other Affect: normal affect Exam Narrative Exam Narrative: GEN: Alert, follows commands, responds to questions with grunting (baseline) CV: tachycardic in 70s, no m/g Lungs: CTAB, normal effort abd: + BS, soft, NT/ND ext no c/c/e bilaterally neuro: no abormal movement/tremor, non-focal Psych Mental Status: other Speech and Movement: speech and movement normal Mood: other Affect: normal affect DS: Data Vitals/I&O Vitals and I&O: Vital Signs Temperature 36.1 C L 06/26/25 08:51 Temperature Source Temporal Artery Scan 06/26/25 08:51 Pulse 105 H 06/26/25 09:18 Pulse 80 06/26/25 09:00 Respiratory Rate 14 06/26/25 09:18 Respiratory Effort Normal 06/25/25 01:36 Respiratory Depth Normal 06/25/25 01:36 Respiratory Pattern Tachypnea 06/25/25 01:36 Blood Pressure 113/68 06/26/25 09:18 Blood Pressure Mean 82 06/26/25 09:18 Blood Pressure Position Supine 06/24/25 20:04 Pulse Oximetry 96 06/25/25 11:17 Oxygen Delivery Method Room Air 06/25/25 10:31 Oxygen Flow Rate 0 06/25/25 10:31 Pain Level 0 06/25/25 10:31 Comment Vitals failed capture, input manually; patient's temperature until this point has been taken rectal, exposed to room air with no coverings to head produces an appropriate temperature as of this time and patient's activity both physically and mentally has been elevated/improved closer to baseline levels. Will utilize temporal scan for time being unless hypothermic symptoms return. 06/25/25 01:36 Intake & Output 06/25/25 06/25/25 06/26/25 11:59 23:59 11:59 Intake Total 140 / 1540 1400 / 1540 Output Total 7130 / 7590 460 / 7590 250 / 250 Balance -6990 / -6050 940 / -6050 -250 / -250 Weight 99 kg Intake: IV Oral 120 / 1520 1400 / 1520 Output: Urine 7130 / 7590 460 / 7590 250 / 250 Other: Urine Color Pale Yellow Dark Trang Yellow Urine Appearance Clear Clear Clear Urine Odor Normal Comment Moderate unmeasured amount voided during incontinence in bed. None in bedside commode during this voiding. Patient incontinent of large amount of urine at this time. Stool Size Moderate Stool Characteristics Formed Data Completed and Pending Pending Labs at Discharge: 06/24/25 06/24/25 06/24/25 20:27 20:28 20:35 WBC 3.08 L RBC 4.68 Hgb 12.4 L Hct 35.8 L MCV 77 L MCH 26.5 L MCHC 34.6 RDW 13.6 Plt Count 152 MPV 8.9 Immature Gran % 1.0 Neutrophils % 43.5 Lymphocytes % 38.6 Monocytes % 14.3 Eosinophils % 2.3 Basophils % 0.3 Nucleated RBC % 0.0 Absolute Neutrophils 1.34 Absolute Lymphocytes 1.19 L Absolute Monocytes 0.44 Absolute Eosinophils 0.07 Absolute Basophils 0.01 VBG pH 7.32 VBG pCO2 52 H VBG pO2 27 VBG HCO3 27 VBG Total CO2 25 VBG O2 Saturation 42 VBG Base Excess 1 VBG Lactate 1.4 Sodium 125 L Potassium 3.4 L Chloride 90 L Carbon Dioxide 26.2 Anion Gap 8.7 BUN 15 Creatinine 0.68 L Est GFR (CKD-EPI 2020) 132.68 Glucose 77 Serum Osmolality Calcium 8.6 Magnesium 1.7 Iron TIBC Transferrin % Sat Total Bilirubin 0.6 AST 17 ALT 22 Alkaline Phosphatase 92 Total Protein 7.3 Albumin 4.3 Lipase 19 TSH Free T4 Urine Color Urine Clarity Urine pH Ur Specific Hancock Urine Protein Urine Ketones Urine Blood Urine Nitrite Urine Bilirubin Urine Urobilinogen Ur Leukocyte Esterase Urine Osmolality Ur Random Sodium Urine Glucose COVID-19 Source Nasopharynx SARS-CoV-2 (PCR) Negative Influenza Type A (PCR) Negative Influenza Type B (PCR) Negative RSV (PCR) Negative 06/24/25 06/25/25 06/25/25 21:37 05:15 06:35 WBC 2.08 L RBC 4.93 Hgb 12.9 L Hct 37.6 L MCV 76 L MCH 26.2 L MCHC 34.3 RDW 13.7 Plt Count 200 MPV 9.5 Immature Gran % 0.5 Neutrophils % 57.7 Lymphocytes % 31.7 Monocytes % 9.1 Eosinophils % 0.5 Basophils % 0.5 Nucleated RBC % 0.0 Absolute Neutrophils 1.20 Absolute Lymphocytes 0.66 L Absolute Monocytes 0.19 Absolute Eosinophils 0.01 Absolute Basophils 0.01 VBG pH VBG pCO2 VBG pO2 VBG HCO3 VBG Total CO2 VBG O2 Saturation VBG Base Excess VBG Lactate Sodium 142 D Potassium 4.3 Chloride 107 Carbon Dioxide 22.7 Anion Gap 12.3 H BUN 12 Creatinine 0.72 L Est GFR (CKD-EPI 2020) 124.21 Glucose 82 Serum Osmolality Pending Calcium 9.4 Magnesium 2.0 Iron TIBC Transferrin % Sat Total Bilirubin 0.4 AST 15 ALT 22 Alkaline Phosphatase 91 Total Protein 7.5 Albumin 4.2 Lipase TSH < 0.01 L Free T4 1.91 H Urine Color Yellow Urine Clarity Clear Urine pH 7.0 Ur Specific Hancock 1.020 Urine Protein Negative Urine Ketones Negative Urine Blood Negative Urine Nitrite Negative Urine Bilirubin Negative Urine Urobilinogen 0.2 Ur Leukocyte Esterase Negative Urine Osmolality Pending Ur Random Sodium 37 Urine Glucose Negative COVID-19 Source SARS-CoV-2 (PCR) Influenza Type A (PCR) Influenza Type B (PCR) RSV (PCR) 06/26/25 05:30 WBC RBC Hgb Hct MCV MCH MCHC RDW Plt Count MPV Immature Gran % Neutrophils % Lymphocytes % Monocytes % Eosinophils % Basophils % Nucleated RBC % Absolute Neutrophils Absolute Lymphocytes Absolute Monocytes Absolute Eosinophils Absolute Basophils VBG pH VBG pCO2 VBG pO2 VBG HCO3 VBG Total CO2 VBG O2 Saturation VBG Base Excess VBG Lactate Sodium 145 Potassium 3.8 Chloride 109 H Carbon Dioxide 24.6 Anion Gap 11.4 H BUN 18 Creatinine 0.79 Est GFR (CKD-EPI 2020) 111.60 Glucose 75 Serum Osmolality Calcium 8.8 Magnesium Iron 36 L TIBC 260 Transferrin % Sat 14 L Total Bilirubin AST ALT Alkaline Phosphatase Total Protein Albumin Lipase TSH Free T4 Urine Color Urine Clarity Urine pH Ur Specific Hancock Urine Protein Urine Ketones Urine Blood Urine Nitrite Urine Bilirubin Urine Urobilinogen Ur Leukocyte Esterase Urine Osmolality Ur Random Sodium Urine Glucose COVID-19 Source SARS-CoV-2 (PCR) Influenza Type A (PCR) Influenza Type B (PCR) RSV (PCR) Preliminary micro results at discharge 06/24/25 20:35 Blood Blood Culture - Preliminary NO GROWTH 24 HOURS 06/24/25 20:28 Blood Blood Culture - Preliminary NO GROWTH 24 HOURS PFSH All Active Problems (Updated 06/26/25 @ 09:40 by Ren Vaz) Tachycardia (Acute) Hyponatremia (Acute) Bradycardia (Acute) Hypokalemia (Acute) Hypothermia (Acute) Hyponatremia (Acute) Hypothermia not due to cold exposure (Acute) Schwannoma of cranial nerve (Acute) Picking own skin (Acute) Abrasion (Acute) Abscess (Acute ~07/19/24) Right side upper thigh (? pressure related D/T recent hospitalization), Left posterolateral thigh abscess Avulsion of nail (Acute) Nonspecific paroxysmal spell (Acute) Focal epilepsy (Acute) Otitis media (Acute) Urinary retention with incomplete bladder emptying (Acute) Chemical gastritis (Acute) On beta gui at home (Acute) Gastric outlet obstruction (Acute) Vomiting (Acute) Intractable diarrhea (Acute) Gastroenteritis (Acute) Discharge planning issues (Acute) Wheezing (Chronic) DVT prophylaxis (Acute) Panhypopituitarism (Chronic) Diabetes insipidus (Chronic) Cortical blindness (Chronic) Constipation (Chronic) Leg cramps (Chronic) Insomnia (Chronic) GERD (gastroesophageal reflux disease) (Chronic) Seizures (Chronic) TBI (traumatic brain injury) (Chronic) Medical History Chronic excoriation Furuncle of left axilla Hx of benign neoplasm of 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 osteoporosis Contracture of joint Pruritic disorder Steatosis of liver Gastritis Optic atrophy Hemiplegia Speech and language disorder Trichotillomania Restlessness and agitation Anemia, iron deficiency Obesity Hypo-osmolality and hyponatremia Diabetes Hypopituitarism Hypothyroidism History of pica 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 Cortical blindness Mood disorder Osteoporosis Hypertriglyceridemia Urinary incontinence H/O secondary hypogonadism Hemiparesis, left History of craniopharyngioma Poor dentition Hypocalcemia Elevated liver enzymes Urinary retention Hx of fracture of pelvis 2017 s/s seizure CVA (cerebral vascular accident) post-surgical Surgical History H/O brain surgery right craniotomy for craniopharyngioma Family History Mother Renal failure syndrome Social History Smoking/Tobacco Use Status: Never Smoking risk assessment performed?: Yes Alcohol Intake: never Drug use: Never Substance use type: does not use Household members: caregiver Housing: assisted living facility current occupation: Disabled In current or past relationships, have you been: other Do you feel safe at home: Yes Do you feel safe in your relationship?: Yes Time Spent with Patient Time Spent with Patient: 45-69 minutes Time was spent: preparing to see the patient(eg.review tests), obtaining and/or reviewing separately otained hiistory, ordering medications,tests, procedures, referring, communicating with other health pharmacy customer care specialist, indepentently interpreting results, counseling the patient and care coordination
--- NOTE | 2025-06-26 15:44 | PDOC.CMDIS ---
Date of service: 06/26/25 Time of Service: 15:44 LACE Index Scoring Tool Questions: Length of Stay (in days): 1 Was the patient admitted via the E.D.?: Yes Comorbidities: Diabetes w/o Complication E.D. Visits: 3 Answers: Total Score: 8 Risk of Readmission: Low Risk Care Management Discharge Plan Reason for Hospitalization: hypothermia Discharge Plan: Miguel Angel returned to the longterm where he resides today, with a resumption of his 27/01 caregiver support. He transported home via private vehicle by his caregivers. He will follow up with his PCP and discharge plan of care. MD contacted his sister, Bettina, who is his guardian, and informed her of his discharge plan of care. Patient/Family Education Needs: Review discharge instructions and limitations, discussion of self care needs including ask me three.
[2025-06-26 16:05] LABS: Osmolality, Urine 125 mOsm/kg (150-1150)
== END 2025-06-26 10:35 | disposition home or self-care (01) ==
LOC: ER 06-25 00:17 → ICU 06-25 01:15
PROVIDERS: Admitting Provider Hospitalist; Emergency Provider Emergency Medicine; PCP Student in an Organized Health Care Education/Training Program; Responsible Provider Family Medicine; Visit Provider Hospitalist
DX: T68.XXXA Hypothermia, initial encounter (principal); I95.9 Hypotension, unspecified; E23.2 Diabetes insipidus; R00.1 Bradycardia, unspecified; E23.0 Hypopituitarism; G81.94 Hemiplegia, unspecified affecting left nondominant side; R33.9 Retention of urine, unspecified; D50.9 Iron deficiency anemia, unspecified; I69.818 Other symptoms and signs involving cognitive functions following other cerebrovascular disease; R00.0 Tachycardia, unspecified; E03.8 Other specified hypothyroidism; Z79.899 Other long term (current) drug therapy; Z87.820 Personal history of traumatic brain injury; G40.109 Localization-related (focal) (partial) symptomatic epilepsy and epileptic syndromes with simple partial seizures, not intractable, without status epilepticus; K21.9 Gastro-esophageal reflux disease without esophagitis; G47.62 Sleep related leg cramps; G47.00 Insomnia, unspecified; K59.00 Constipation, unspecified
CPT/HCPCS: 00123; 36415; 36416; 51702; 74177; 80048; 80053; 82805; 82962; 83690; 83935; 87040; 87637; 93005; 96361; 96374; 99291; J1650; 71260; 81003; 83540; 83550; 83605; 83735; 83930; 84300; 84439; 84443; 85025; 93010; 99223; 99239; G0378; J1720; J3490

== ENCOUNTER 2025-06-29 00:41 | Outpatient (CLI) | payer MEDICAID, SELFPAY ==
[2025-06-29 14:28] LABS: Sodium 139 mmol/L (136-145)
== END 2025-06-29 00:42 | disposition home or self-care (01) ==
PROVIDERS: PCP Student in an Organized Health Care Education/Training Program; Visit Provider Internal Medicine Endocrinology, Diabetes & Metabolism
DX: E27.49 Other adrenocortical insufficiency (principal)
CPT/HCPCS: 36415; 84295

== ENCOUNTER 2025-07-06 02:54 | Outpatient (CLI) | payer MEDICAID, SELFPAY ==
[2025-07-06 14:07] LABS: Anion Gap 7.4 mmol/L (3-11); BUN 14 mg/dL (9-23); CO2 25.1 mmol/L (20.0-31.0); Calcium 8.8 mg/dL (8.3-10.6); Chloride 94 mmol/L (98-107); Glucose 72 mg/dL (74-106); Potassium 3.8 mmol/L (3.5-5.1); Sodium 126 mmol/L (136-145)
== END 2025-07-06 02:55 | disposition home or self-care (01) ==
LOC: LBO 02:54
PROVIDERS: PCP Student in an Organized Health Care Education/Training Program; Visit Provider Family Medicine
DX: E87.1 Hypo-osmolality and hyponatremia (principal)
CPT/HCPCS: 36415; 80048